=== PATIENT | female | born 1995 | race Caucasian/White ===

== ENCOUNTER 2019-02-04 16:15 | Emergency (ER) | payer MEDICAID ==
[2019-02-04 18:23] LABS: Absolute Lymphocytes (CBC) 2.3 K/uL (0.7-4.9); Basophils % 0.4 % (0-1.3); Hematocrit 39.3 % (36.0-45.0); Lymphocytes % 21.2 % (15.3-44.8); MPV 8.8 fL (7.6-11.3); RBC Red Blood Cell Count 4.52 M/uL (3.86-4.86)
--- NOTE | 2019-02-04 18:26 | RAD REPORT ---
EXAM DESCRIPTION: US - 1St Trimest Single 1St Fetus - 02/04/2019 6:13 pm CLINICAL HISTORY: with vaginal bleeding COMPARISON: None. FINDINGS: The uterus measures 12 x 8 x 8 centimeters. A normal appearing gestational sac is present within the endometrium. Within this is a pole with a crown-rump length 6 centimeters. Cardiac activity 154 beats per minute. The placenta is anterior Right and left ovary appear normal. . The right and left adnexal unremarkable No significant free fluid is seen. IMPRESSION: Single live intrauterine with an estimated gestational age 12 weeks 4 days da ys DYLAN 08/15/2019 If a survey is desired it should be performed in about 6 weeks
--- NOTE | 2019-02-04 18:41 | EDPHYS ---
Physician Documentation [facility] Name: Natanael Dyson Age: 23 yrs Sex: Female : 1995 Arrival Date: 02/04/2019 Time: 16:21 Bed 26 Private MD: None, None ED Physician Miquel Rios HPI: 02/04 17:29 This 23 yrs old Female presents to ER via Ambulatory with complaints of pm1 Abdominal Pain - 14 Weeks . 17:29 The patient presents with vaginal bleeding that is spotting, with no clots. Onset: The pm1 symptoms/episode began/occurred today. Modifying factors: The symptoms are alleviated by nothing, the symptoms are aggravated by nothing. Associated signs and symptoms: Pertinent positives: cramping, Pertinent negatives: dysuria, fever, nausea, vomiting. Severity of symptoms: in the emergency department the symptoms are actually worse. The patient is sexually active. The patient has experienced similar episodes in the past, a few times. The patient has not recently seen a physician. 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 - Social history:: Smoking status: . - Ebola Screening: : Patient negative for fever greater than or equal to 101.5 degrees Fahrenheit, and additional compatible Ebola Virus Disease symptoms. ROS: 17:29 Positive for vaginal bleeding, Negative for urinary symptoms. pm1 17:29 Constitutional: Negative for fever, chills, and weight loss, Eyes: Negative for injury, pain, redness, and discharge, ENT: Negative for injury, pain, and discharge, Neck: Negative for injury, pain, and swelling, Cardiovascular: Negative for chest pain, palpitations, and edema, Respiratory: Negative for shortness of breath, cough, wheezing, and pleuritic chest pain. 17:29 Back: Negative for injury and pain, MS/Extremity: Negative for injury and deformity, Skin: Negative for injury, rash, and discoloration, Neuro: Negative for headache, weakness, numbness, tingling, and seizure. 17:29 Abdomen/GI: Positive for abdominal cramps, of the suprapubic area. Exam: 17:29 Constitutional: This is a well developed, well nourished patient who is awake, alert, pm1 and in no acute distress. Head/Face: Normocephalic, atraumatic. Chest/axilla: Normal chest wall appearance and motion. Nontender with no deformity. No lesions are appreciated. Cardiovascular: Regular rate and rhythm with a normal S1 and S2. No gallops, murmurs, or rubs. Normal PMI, no JVD. No pulse deficits. Respiratory: Lungs have equal breath sounds bilaterally, clear to auscultation and percussion. No rales, rhonchi or wheezes noted. No increased work of breathing, no retractions or nasal flaring. 17:29 Back: No spinal tenderness. No costovertebral tenderness. Full range of motion. Skin: Warm, dry with normal turgor. Normal color with no rashes, no lesions, and no evidence of cellulitis. MS/ Extremity: Pulses equal, no cyanosis. Neurovascular intact. Full, normal range of motion. 17:29 Abdomen/GI: Inspection: gravid appearance, is noted, Bowel sounds: normal, Palpation: abdomen is soft and non-tender, in all quadrants, mass, is not appreciated, rebound tenderness, is not appreciated. 17:29 Neuro: Orientation: is normal, Motor: is normal, moves all fours. Vital Signs: 16:47 BP 108 / 94; Pulse 101; Resp 17; Temp 98.(TE); Pulse Ox 99% on R/A; Weight 49.9 kg (R); tw2 Pain 10/10; 18:00 BP 100 / 81; Pulse 81; Resp 18 S; Pulse Ox 99% on R/A; ca1 19:00 BP 109 / 73; Pulse 78; Resp 19 S; Pulse Ox 100% on R/A; ca1 MDM: 17:11 Patient medically screened. pm1 18:36 Data reviewed: vital signs. Data interpreted: Pulse oximetry: on room air is 99 %. pm1 Interpretation: normal. Counseling: I had a detailed discussion with the patient and/or guardian regarding: the historical points, exam findings, and any diagnostic results supporting the discharge/admit diagnosis, lab results, radiology results, the need for outpatient follow up, for definitive care, an OB/Gyne specialist, to return to the emergency department if symptoms worsen or persist or if there are any questions or concerns that arise at home. 02/04 17:22 Order name: Quantitative Hcg; Complete Time: 19:34 pm1 02/04 17:22 Order name: Abo/rh Typing; Complete Time: 18:07 pm1 02/04 17:22 Order name: Basic Metabolic Panel; Complete Time: 19:34 pm1 02/04 17:22 Order name: CBC with Diff; Complete Time: 18:32 pm1 02/04 19:17 Order name: Urine Dipstick--Ancillary (enter results) sp 02/04 19:17 Order name: Urine --Ancillary (enter results) sp 02/04 17:22 Order name: Urine Test (obtain specimen); Complete Time: 19:14 pm1 02/04 17:22 Order name: IV Saline Lock; Complete Time: 17:28 pm1 02/04 17:22 Order name: Labs collected and sent; Complete Time: 17:28 pm1 02/04 17:22 Order name: NPO; Complete Time: 17:28 pm1 02/04 17:22 Order name: Urine Dipstick-Ancillary (obtain specimen); Complete Time: 19:15 pm1 02/04 18:05 Order name: 1St Trimest Single 1St Fetus; Complete Time: 18:36 EDMS Administered Medications: 18:46 Drug: Phenergan 12.5 mg Route: IVP; Site: right antecubital; rv 19:51 Follow up: Response: No adverse reaction; Nausea is decreased ca1 Disposition: 02/05 08:58 Co-signature as Attending Physician, Miquel Rios MD I agree with the assessment and kdr plan of care. Disposition: 02/04/19 18:39 Discharged to Home. Impression: Threatened , Urinary tract infection, site not specified. - Condition is Stable. - Discharge Instructions: Threatened Miscarriage, and Urinary Tract Infection, Pelvic Rest. - Prescriptions for Macrobid 100 mg Oral Capsule - take 1 capsule by ORAL route every 12 hours for 10 days; 20 capsule. - Medication Reconciliation Form, Thank You Letter, Antibiotic Education, Prescription Opioid Use form. - Follow up: Emergency Department; When: As needed; Reason: Worsening of condition. Follow up: Private Physician; When: 2 - 3 days; Reason: Recheck today's complaints, Continuance of care, Re-evaluation by your physician. - Problem is new. - Symptoms have improved. Signatures: Dispatcher [employer] [facility] Miquel Rios MD MD kdr Destin Davis, LEGAL SPECIALIST LEGAL SPECIALIST pm1 Amber Mitchell, RN RN tw2 Andreas Hazel RN RN rv AcHenna rodriguez RN RN ca1 Corrections: (The following items were deleted from the chart) 02/04 18:05 17:25 Transvaginal Ob+US.RAD.BRZ ordered. [facility] EDVT 19:35 18:39 02/04/2019 18:39 Discharged to Home. Impression: Threatened . Condition pm1 is Stable. Forms are Medication Reconciliation Form, Thank You Letter, Antibiotic Education, Prescription Opioid Use. Follow up: Emergency Department; When: As needed; Reason: Worsening of condition. Follow up: Private Physician; When: 2 - 3 days; Reason: Recheck today's complaints, Continuance of care, Re-evaluation by your physician. Problem is new. Symptoms have improved. pm1 19:52 19:35 02/04/2019 18:39 Discharged to Home. Impression: Threatened ; Urinary ca1 tract infection, site not specified. Condition is Stable. Discharge Instructions: Threatened Miscarriage, Pelvic Rest, and Urinary Tract Infection. Prescriptions for Macrobid 100 mg Oral Capsule - take 1 capsule by ORAL route every 12 hours for 10 days; 20 capsule. and Forms are Medication Reconciliation Form, Thank You Letter, Antibiotic Education, Prescription Opioid Use. Follow up: Emergency Department; When: As needed; Reason: Worsening of condition. Follow up: Private Physician; When: 2 - 3 days; Reason: Recheck today's complaints, Continuance of care, Re-evaluation by your physician. Problem is new. Symptoms have improved. pm1
--- NOTE | 2019-02-04 18:41 | ER ---
Nurse's Notes [facility] Name: Natanael Dyson Age: 23 yrs Sex: Female : 1995 Arrival Date: 02/04/2019 Time: 16:21 Bed 26 Private MD: None, None Diagnosis: Threatened ;Urinary tract infection, site not specified Presentation: 02/04 16:45 Presenting complaint: Patient states: i have been jackie all day and it just wont tw2 stop, i have nausea, i was supposed to take something to stop the contractions, this is my 4th and i have had two babies at 30 weeks, i feel a lot of pressure down there and i have some mucous discharge with tinge of blood on the discharge. Transition of care: patient was not received from another setting of care. Onset of symptoms was February 04, 2019. Risk Assessment: Do you want to hurt yourself or someone else? Patient reports no desire to harm self or others. Initial Sepsis Screen: Does the patient meet any 2 criteria? No. Patient's initial sepsis screen is negative. Does the patient have a suspected source of infection? No. Patient's initial sepsis screen is negative. Care prior to arrival: None. 16:45 Method Of Arrival: Ambulatory tw2 16:45 Acuity: THIERNO 2 tw2 16:47 Presenting complaint: Patient states: no movements since this morning. tw2 Triage Assessment: 16:47 General: Appears uncomfortable, slender, Behavior is cooperative, appropriate for age. tw2 Pain: Complains of pain in pelvis. GI: Reports cramping, nausea. 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 - Social history:: Smoking status: . - Ebola Screening: : Patient negative for fever greater than or equal to 101.5 degrees Fahrenheit, and additional compatible Ebola Virus Disease symptoms. Screenin:06 Abuse screen: Denies threats or abuse. Denies injuries from another. Nutritional ca1 screening: No deficits noted. Tuberculosis screening: No symptoms or risk factors identified. Fall Risk IV access (20 points). Assessment: 17:06 General: Appears in no apparent distress. comfortable, Behavior is calm, cooperative, ca1 appropriate for age. Pain: Complains of pain in abdomen and pelvis Pain radiates to back Pain currently is 4 out of 10 on a pain scale. at worst was 8 out of 10 on a pain scale. Quality of pain is described as crampy, Pain began 2-3 days ago. Is intermittent. Neuro: Level of Consciousness is awake, alert, obeys commands, Oriented to person, place, time, situation. Cardiovascular: Heart tones S1 S2 present Capillary refill < 3 seconds Patient's skin is warm and dry. Pulses are all present. Respiratory: Airway is patent Respiratory effort is even, unlabored, Respiratory pattern is regular, symmetrical, Breath sounds are clear bilaterally. GI: Abdomen is round non-distended, Bowel sounds present X 4 quads. Abd is soft X 4 quads Abdomen is tender to palpation in suprapubic area Reports nausea, vomiting. : Reports vaginal bleeding that is spotty, since today. EENT: No deficits noted. No signs and/or symptoms were reported regarding the EENT system. Derm: Skin is intact, is healthy with good turgor, Skin is pink, warm \T\ dry. Musculoskeletal: Circulation, motion, and sensation intact. Capillary refill < 3 seconds, Range of motion: intact in all extremities. 18:00 Reassessment: Patient appears in no apparent distress at this time. Patient and/or ca1 family updated on plan of care and expected duration. Pain level reassessed. Patient is alert, oriented x 3, equal unlabored respirations, skin warm/dry/pink. 19:00 Reassessment: Patient appears in no apparent distress at this time. Patient is alert, ca1 oriented x 3, equal unlabored respirations, skin warm/dry/pink. Vital Signs: 16:47 BP 108 / 94; Pulse 101; Resp 17; Temp 98.(TE); Pulse Ox 99% on R/A; Weight 49.9 kg (R); tw2 Pain 10/10; 18:00 BP 100 / 81; Pulse 81; Resp 18 S; Pulse Ox 99% on R/A; ca1 19:00 BP 109 / 73; Pulse 78; Resp 19 S; Pulse Ox 100% on R/A; ca1 ED Course: 16:21 Patient arrived in ED. dl4 16:22 None, None is Private Physician. dl4 16:46 Triage completed. tw2 16:46 Arm band placed on. tw2 16:51 Andreas Hazel, RN is Primary Nurse. rv 17:00 Destin Davis NP is PHCP. pm1 17:00 Miquel Rios MD is Attending Physician. pm1 17:06 Patient has correct armband on for positive identification. Placed in gown. Bed in low ca1 position. Call light in reach. Side rails up X 1. Pulse ox on. NIBP on. Warm blanket given. 17:06 No provider procedures requiring assistance completed. Inserted saline lock: 20 gauge ca1 in right antecubital area, using aseptic technique. Blood collected. 18:13 1St Trimest Single 1St Fetus In Process Unspecified. EDMS 19:51 IV discontinued, intact, bleeding controlled, No redness/swelling at site. Pressure ca1 dressing applied. Administered Medications: 18:46 Drug: Phenergan 12.5 mg Route: IVP; Site: right antecubital; rv 19:51 Follow up: Response: No adverse reaction; Nausea is decreased ca1 Outcome: 18:39 Discharge ordered by MD. pm1 19:51 Discharged to home via wheelchair, with significant other. ca1 19:51 Condition: stable 19:51 Discharge instructions given to patient, significant other, Instructed on discharge instructions, follow up and referral plans. medication usage, Demonstrated understanding of instructions, follow-up care, medications, Prescriptions given X 1. 19:52 Patient left the ED. ca1 Signatures: Dispatcher [employer] EDMS Destin Davis, CUAU[employer] BRAZING MACHINE OPERATOR HELPER pm1 Amber Mitchell RN RN tw2 Andreas Hazel, RN RN Hema Lanza dl4 Henna Mancia RN RN ca1 Corrections: (The following items were deleted from the chart) 19:21 19:20 Reassessment: Patient appears in no apparent distress at this time. Patient ca1 and/or family updated on plan of care and expected duration. Pain level reassessed. Patient is alert, oriented x 3, equal unlabored respirations, skin warm/dry/pink. ca1
[2019-02-04] MEDS ORDERED: PROMETHAZINE 25 MG/ML VIAL ONE (18:46)
[2019-02-04 18:56] LABS: BUN Blood Urea Nitrogen 5 mg/dL (7-18); Bicarbonate 21 mmol/L (21-32); Glucose Level 83 mg/dL (74-106); HCG, Quantitative 131542 mIU/mL (1-3); Potassium 3.4 mmol/L (3.5-5.1); Sodium Level 138 mmol/L (136-145)
[2019-02-04 20:27] LABS: Urine Blood NEGATIVE (NEG); Urine Glucose NEGATIVE (NEG); Urine Protein NEGATIVE (NEG)
[2019-02-04 21:02] VITALS: TEMP 98
[2019-02-04 21:04] VITALS: BP 109/73; O2SAT 100
== END 2019-02-04 19:52 | disposition home or self-care (01) ==
LOC: ER 16:15
DX: O20.0 Threatened abortion (principal); O23.41 Unspecified infection of urinary tract in pregnancy, first trimester; Z3A.14 14 weeks gestation of pregnancy
CPT/HCPCS: 85025; 80048; 36415; 86900; 81025; 86901; 84702; 81003; 76801; 96374; 99284; J2550

== ENCOUNTER 2019-02-19 17:52 | Emergency (ER) | payer MEDICAID, SELFPAY ==
[2019-02-19] MEDS ORDERED: dexAMETHasone 10 MG/ML VIAL ONE (18:53)
[2019-02-19] MEDS ORDERED: FENTANYL CITR 100 MCG/2 ML ONE (18:54)
[2019-02-19] MEDS ORDERED: PROMETHAZINE 25 MG/ML VIAL ONE ×2 (18:54→20:07)
[2019-02-19] MEDS ORDERED: NA CHLORIDE 0.9% 1,000 ML ONE (18:54)
[2019-02-19 19:08] LABS: Absolute Lymphocytes (CBC) 1.7 K/uL (0.7-4.9); Basophils % 0.2 % (0-1.3); Hematocrit 37.9 % (36.0-45.0); Lymphocytes % 12.5 % (15.3-44.8); RBC Red Blood Cell Count 4.43 M/uL (3.86-4.86)
[2019-02-19 19:24] LABS: BUN Blood Urea Nitrogen 7 mg/dL (7-18); Bicarbonate 23 mmol/L (21-32); Glucose Level 86 mg/dL (74-106); Potassium 3.4 mmol/L (3.5-5.1); Sodium Level 139 mmol/L (136-145)
[2019-02-19] MEDS ORDERED: CEFTRIAXONE/SWI 1gm 1 GM/10 ML SYR ONE (19:28)
--- NOTE | 2019-02-19 20:01 | ER ---
Nurse's Notes [facility] Name: Natnaael Dyson Age: 24 yrs Sex: Female : 1995 Arrival Date: 02/19/2019 Time: 17:53 Bed 28 Private MD: Diagnosis: Acute suppurative otitis media;Otalgia, right ear Presentation: 02/19 18:02 Presenting complaint: Patient states: right ear pain after jabbing her ear with a Q-tip sv last night and today started having dizziness and vomiting. Transition of care: patient was not received from another setting of care. Onset of symptoms was February 18, 2019. Risk Assessment: Do you want to hurt yourself or someone else? Patient reports no desire to harm self or others. Initial Sepsis Screen: Does the patient meet any 2 criteria? HR > 90 bpm. No. Patient's initial sepsis screen is negative. Does the patient have a suspected source of infection? No. Patient's initial sepsis screen is negative. Care prior to arrival: None. 18:02 Method Of Arrival: Ambulatory sv 18:02 Acuity: THIERNO 3 sv Historical: - Allergies: 18:03 No Known Allergies; sv - PSHx: 18:03 ; sv - Immunization history:: Adult Immunizations up to date. - Social history:: Smoking status: Patient/guardian denies using tobacco, never smoked. - Ebola Screening: : No symptoms or risks identified at this time. Screenin:05 Abuse screen: Denies threats or abuse. Nutritional screening: No deficits noted. tr5 Tuberculosis screening: No symptoms or risk factors identified. Fall Risk None identified. Assessment: 19:05 General: Appears in no apparent distress. Behavior is calm, cooperative. Pain: tr5 Complains of pain in right ear. Neuro: Level of Consciousness is awake, alert, Oriented to person, place, time, Senior Design Engineering Specialist are equal bilaterally Moves all extremities. Neuro: Reports dizziness. Cardiovascular: Heart tones present Capillary refill < 3 seconds. Respiratory: Airway is patent Respiratory effort is even, unlabored, Respiratory pattern is regular, symmetrical, Breath sounds are clear bilaterally. GI: Reports nausea, vomiting. : No signs and/or symptoms were reported regarding the genitourinary system. EENT: Reports pain in right ear. Derm: No signs and/or symptoms reported regarding the dermatologic system. Musculoskeletal: No signs and/or symptoms reported regarding the musculoskeletal system. 20:00 Reassessment: Patient appears in no apparent distress at this time. Patient and/or tr5 family updated on plan of care and expected duration. Pain level reassessed. Patient is alert, oriented x 3, equal unlabored respirations, skin warm/dry/pink. Vital Signs: 18:03 BP 126 / 74; Pulse 115; Resp 20; Temp 98.3; Pulse Ox 97% ; Weight 49.9 kg; Height 5 ft. sv 1 in. (154.94 cm); 19:00 BP 104 / 70; Pulse 96; Resp 15; Pulse Ox 100% ; tr5 20:00 BP 111 / 69; Pulse 90; Resp 14; Pulse Ox 99% on R/A; tr5 18:03 Body Mass Index 20.78 (49.90 kg, 154.94 cm) sv ED Course: 17:53 Patient arrived in ED. as 17:59 [facility]C [facility] snw 17:59 Nael Latham MD is Attending Physician. snw 18:03 Triage completed. sv 18:03 Arm band placed on. sv 18:35 Duke Adkins, ROSEY is Primary Nurse. tr5 18:54 Initial lab(s) drawn, by me, sent to lab. jp3 19:01 Bed in low position. Call light in reach. Side rails up X 1. Warm blanket given. Verbal jp3 reassurance given. Pulse ox on. NIBP on. 19:01 Inserted saline lock: 22 gauge in right antecubital area, using aseptic technique. jp3 Blood collected. Patient maintains SpO2 saturation greater than 95% on room air. 19:02 Chem 7 Sent. jp3 19:02 CBC with Diff Sent. jp3 20:00 Anusha García MD is Referral Physician. snw 21:11 No provider procedures requiring assistance completed. IV discontinued. tr5 Administered Medications: 19:01 Drug: fentaNYL (PF) 25 mcg {Note: RASS:0.} Route: IVP; Site: right antecubital; tr5 19:30 Follow up: Response: Anxiety decreased; RASS: Alert and Calm (0) tr5 19:01 Drug: Phenergan 6.25 mg Route: IVP; Site: right antecubital; tr5 19:30 Follow up: Response: Nausea is decreased tr5 19:02 Drug: NS 0.9% 1000 ml Route: IV; Rate: 1 bolus; Site: right antecubital; tr5 20:47 Follow up: IV Status: Completed infusion; IV Intake: 1000ml tr5 19:03 Drug: Decadron - Dexamethasone 10 mg Route: IVP; Site: right antecubital; tr5 19:30 Follow up: Response: No adverse reaction tr5 19:33 Drug: Rocephin 1 grams Route: IV; Rate: calculated rate; Site: right antecubital; tr5 20:00 Follow up: Response: No adverse reaction tr5 20:15 Drug: Phenergan 6.25 mg Route: IVP; Site: right antecubital; tr5 20:45 Follow up: Response: Nausea is decreased tr5 Intake: 20:47 IV: 1000ml; Total: 1000ml. tr5 Outcome: 20:01 Discharge ordered by . snw 21:11 Discharged to home ambulatory. tr5 21:11 Condition: stable 21:11 Discharge instructions given to patient, Instructed on discharge instructions, follow up and referral plans. medication usage, Demonstrated understanding of instructions, follow-up care, medications, Prescriptions given X 4. 21:12 Patient left the ED. tr5 Signatures: Anusha Tobin, RN RN Christy Roque, SUPERVISOR LAST MODEL DEPARTMENT-C SUPERVISOR LAST MODEL DEPARTMENT-Anum Patel Jacob jp3 Duke Adkins RN RN tr5 Corrections: (The following items were deleted from the chart) 20:46 19:30 Phenergan 6.25 mg IVP in right antecubital tr5 tr5
--- NOTE | 2019-02-19 20:01 | EDPHYS ---
Physician Documentation [facility] – [place], [place] Name: Natanael Dyson Age: 24 yrs Sex: Female : 1995 Arrival Date: 02/19/2019 Time: 17:53 Bed 28 Private MD: ED Physician Nael Latham HPI: 02/19 19:29 This 24 yrs old Female presents to ER via Ambulatory with complaints of Ear snw Pain, Dizziness. 19:29 The patient presents with a fullness, hearing loss, pain, incapacitating. The snw complaints affect the right ear. Onset: The symptoms/episode began/occurred suddenly, 2 day(s) ago, and became worse and became persistent. Modifying factors: the symptoms are aggravated by Son pushed q-tip when pt had it in her ear. Severity of symptoms: At their worst the symptoms were incapacitating in the emergency department the symptoms are unchanged. The patient has not experienced similar symptoms in the past. The patient has not recently seen a physician. dizziness, nausea, vomiting. Historical: - Allergies: 18:03 No Known Allergies; sv - PSHx: 18:03 ; sv - Immunization history:: Adult Immunizations up to date. - Social history:: Smoking status: Patient/guardian denies using tobacco, never smoked. - Ebola Screening: : No symptoms or risks identified at this time. ROS: 19:28 Constitutional: Negative for fever, chills, and weight loss, Eyes: Negative for injury, snw pain, redness, and discharge, Neck: Negative for injury, pain, and swelling, Cardiovascular: Negative for chest pain, palpitations, and edema, Respiratory: Negative for shortness of breath, cough, wheezing, and pleuritic chest pain, Back: Negative for injury and pain, : Negative for injury, bleeding, discharge, and swelling, MS/Extremity: Negative for injury and deformity, Skin: Negative for injury, rash, and discoloration. 19:28 ENT: Positive for ear pain. 19:28 Abdomen/GI: Positive for nausea and vomiting. 19:28 Neuro: Positive for dizziness. Exam: 19:28 Constitutional: This is a well developed, well nourished patient who is awake, alert, snw and in no acute distress. Head/Face: Normocephalic, atraumatic. Eyes: Pupils equal round and reactive to light, extra-ocular motions intact. Lids and lashes normal. Conjunctiva and sclera are non-icteric and not injected. Cornea within normal limits. Periorbital areas with no swelling, redness, or edema. Neck: Trachea midline, no thyromegaly or masses palpated, and no cervical lymphadenopathy. Supple, full range of motion without nuchal rigidity, or vertebral point tenderness. No Meningismus. Chest/axilla: Normal chest wall appearance and motion. Nontender with no deformity. No lesions are appreciated. Respiratory: Lungs have equal breath sounds bilaterally, clear to auscultation and percussion. No rales, rhonchi or wheezes noted. No increased work of breathing, no retractions or nasal flaring. Abdomen/GI: Soft, non-tender, with normal bowel sounds. No distension or tympany. No guarding or rebound. No evidence of tenderness throughout. Back: No spinal tenderness. No costovertebral tenderness. Full range of motion. Skin: Warm, dry with normal turgor. Normal color with no rashes, no lesions, and no evidence of cellulitis. MS/ Extremity: Pulses equal, no cyanosis. Neurovascular intact. Full, normal range of motion. Neuro: Awake and alert, GCS 15, oriented to person, place, time, and situation. Cranial nerves II-XII grossly intact. Motor strength 5/5 in all extremities. Sensory grossly intact. Cerebellar exam normal. Normal gait. Psych: Awake, alert, with orientation to person, place and time. Behavior, mood, and affect are within normal limits. 19:28 ENT: External ear(s): are unremarkable, TM's: bulging, on the right, decreased mobility, Examination of the other ear shows no obvious abnormality, Nose: is normal, Mouth: is normal, Posterior pharynx: is normal, Voice: is normal. 19:28 Cardiovascular: Rate: tachycardic, Rhythm: regular. Vital Signs: 18:03 BP 126 / 74; Pulse 115; Resp 20; Temp 98.3; Pulse Ox 97% ; Weight 49.9 kg; Height 5 ft. sv 1 in. (154.94 cm); 19:00 BP 104 / 70; Pulse 96; Resp 15; Pulse Ox 100% ; tr5 20:00 BP 111 / 69; Pulse 90; Resp 14; Pulse Ox 99% on R/A; tr5 18:03 Body Mass Index 20.78 (49.90 kg, 154.94 cm) sv MDM: 18:40 Patient medically screened. snw 20:05 Data reviewed: vital signs, nurses notes. Data interpreted: Pulse oximetry: on room air snw is 97 %. Interpretation: normal. Counseling: I had a detailed discussion with the patient and/or guardian regarding: the historical points, exam findings, and any diagnostic results supporting the discharge/admit diagnosis, the need for outpatient follow up, to return to the emergency department if symptoms worsen or persist or if there are any questions or concerns that arise at home. 02/19 18:39 Order name: CBC with Diff; Complete Time: 19:17 snw 02/19 18:39 Order name: Chem 7; Complete Time: 19:27 snw Administered Medications: 19:01 Drug: fentaNYL (PF) 25 mcg {Note: RASS:0.} Route: IVP; Site: right antecubital; tr5 19:30 Follow up: Response: Anxiety decreased; RASS: Alert and Calm (0) tr5 19:01 Drug: Phenergan 6.25 mg Route: IVP; Site: right antecubital; tr5 19:30 Follow up: Response: Nausea is decreased tr5 19:02 Drug: NS 0.9% 1000 ml Route: IV; Rate: 1 bolus; Site: right antecubital; tr5 20:47 Follow up: IV Status: Completed infusion; IV Intake: 1000ml tr5 19:03 Drug: Decadron - Dexamethasone 10 mg Route: IVP; Site: right antecubital; tr5 19:30 Follow up: Response: No adverse reaction tr5 19:33 Drug: Rocephin 1 grams Route: IV; Rate: calculated rate; Site: right antecubital; tr5 20:00 Follow up: Response: No adverse reaction tr5 20:15 Drug: Phenergan 6.25 mg Route: IVP; Site: right antecubital; tr5 20:45 Follow up: Response: Nausea is decreased tr5 Disposition: 02/20 07:47 Co-signature as Attending Physician, Nael Latham MD. Disposition: 02/19/19 20:01 Discharged to Home. Impression: Acute suppurative otitis media, Otalgia, right ear. - Condition is Stable. - Discharge Instructions: Earache, Adult, Heat Therapy. - Prescriptions for Augmentin 875- 125 mg Oral Tablet - take 1 tablet by ORAL route every 12 hours for 10 days; 20 tablet. Tylenol- Codeine #3 300-30 mg Oral Tablet - take 2 tablet by ORAL route every 6 hours As needed; 6 tablet. Prednisone 20 mg Oral Tablet - take 2 tablet by ORAL route once daily for 5 days; 10 tablet. promethazine 25 mg Oral Tablet - take 1 tablet by ORAL route every 6 hours As needed; 20 tablet. - Work release form, Medication Reconciliation Form, Thank You Letter, Antibiotic Education, Prescription Opioid Use form. - Follow up: Private Physician; When: 2 - 3 days; Reason: Recheck today's complaints, Continuance of care, Re-evaluation by your physician. Follow up: Anusha García MD; When: 1 week; Reason: Recheck today's complaints, Continuance of care. Signatures: Dispatcher [employer] EDAnusha Polanco, RN RN Christy Roque, CASSANDRA ARCHITECT-C CASSANDRA ARCHITECT-Csnw Nael Latham MD MD gs Rodriguez, Tommie, RN RN tr5 Corrections: (The following items were deleted from the chart) 02/19 21:12 20:01 02/19/2019 20:01 Discharged to Home. Impression: Acute suppurative otitis media; tr5 Otalgia, right ear. Condition is Stable. Forms are Medication Reconciliation Form, Thank You Letter, Antibiotic Education, Prescription Opioid Use. Follow up: Private Physician; When: 2 - 3 days; Reason: Recheck today's complaints, Continuance of care, Re-evaluation by your physician. Follow up: Anusha García; When: 1 week; Reason: Recheck today's complaints, Continuance of care. snw
[2019-02-19 21:25] VITALS: TEMP 98.3
[2019-02-19 21:27] VITALS: BP 111/69; O2SAT 99
== END 2019-02-19 21:12 | disposition home or self-care (01) ==
LOC: ER 17:52
DX: H66.001 Acute suppurative otitis media without spontaneous rupture of ear drum, right ear (principal)
CPT/HCPCS: 36415; 80048; 85025; 96361; 96374; 96375; 99284; J0696; J1100; J2550; J3010; J7030

== ENCOUNTER 2019-03-12 18:52 | Emergency (ER) | payer OTHER, SELFPAY ==
[2019-03-12] MEDS ORDERED: PROMETHAZINE 25 MG/ML VIAL ONE (19:23)
[2019-03-12] MEDS ORDERED: NA CHLORIDE 0.9% 1,000 ML ONE (19:24)
[2019-03-12 19:55] LABS: Absolute Lymphocytes (CBC) 2.7 K/uL (0.7-4.9); Basophils % 0.4 % (0-1.3); Hematocrit 33.2 % (36.0-45.0); Lymphocytes % 25.2 % (15.3-44.8); MPV 8.4 fL (7.6-11.3); RBC Red Blood Cell Count 3.85 M/uL (3.86-4.86)
[2019-03-12 20:06] LABS: BUN Blood Urea Nitrogen 9 mg/dL (7-18); Bicarbonate 25 mmol/L (21-32); Glucose Level 90 mg/dL (74-106); Potassium 3.5 mmol/L (3.5-5.1); Sodium Level 139 mmol/L (136-145)
--- NOTE | 2019-03-12 21:08 | EDPHYS ---
Physician Documentation [facility] Name: Natanael Dyson Age: 24 yrs Sex: Female : 1995 Arrival Date: 03/12/2019 Time: 18:54 Bed 30 Private MD: ED Physician Miquel Rios HPI: 03/12 19:07 This 24 yrs old Female presents to ER via Ambulatory with complaints of kb Abdominal Pain - 18 WKS PREG, Abdominal Cramping. 19:07 The patient presents to the emergency department with abdominal pain. The patient kb presents to the emergency department with nausea and vomiting. The estimated gestational age is 18 weeks. course: care: at a clinic, Leakage of Fluid: none appreciated, Ultrasound: the patient had an ultrasound, Risk/complications: premature labor. Previous pregnancies: in previous pregnancies patient has had. Associated signs and symptoms: Pertinent positives: nausea, vomiting, abd cramps. The patient has experienced similar episodes in the past, a few times. The patient has been recently seen by a physician: seen by OB today and had cervix checked, has been cramping since then. 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 - Social history:: Smoking status: Patient/guardian denies using tobacco. - Ebola Screening: : No symptoms or risks identified at this time. ROS: 19:09 Constitutional: Negative for fever, chills, and weight loss, ENT: Negative for injury, kb pain, and discharge, Neck: Negative for injury, pain, and swelling, Cardiovascular: Negative for chest pain, palpitations, and edema, Respiratory: Negative for shortness of breath, cough, wheezing, and pleuritic chest pain, Back: Negative for injury and pain, MS/Extremity: Negative for injury and deformity, Skin: Negative for injury, rash, and discoloration, Neuro: Negative for headache, weakness, numbness, tingling, and seizure. 19:09 Abdomen/GI: Positive for nausea and vomiting, abdominal cramps. Exam: 19:09 Constitutional: This is a well developed, well nourished patient who is awake, alert, kb and in no acute distress. Head/Face: Normocephalic, atraumatic. ENT: Nares patent. No nasal discharge, no septal abnormalities noted. Tympanic membranes are normal and external auditory canals are clear. Oropharynx with no redness, swelling, or masses, exudates, or evidence of obstruction, uvula midline. Mucous membranes moist. Neck: Trachea midline, no thyromegaly or masses palpated, and no cervical lymphadenopathy. Supple, full range of motion without nuchal rigidity, or vertebral point tenderness. No Meningismus. Chest/axilla: Normal chest wall appearance and motion. Nontender with no deformity. No lesions are appreciated. Cardiovascular: Regular rate and rhythm with a normal S1 and S2. No gallops, murmurs, or rubs. Normal PMI, no JVD. No pulse deficits. Respiratory: Lungs have equal breath sounds bilaterally, clear to auscultation and percussion. No rales, rhonchi or wheezes noted. No increased work of breathing, no retractions or nasal flaring. Back: No spinal tenderness. No costovertebral tenderness. Full range of motion. Skin: Warm, dry with normal turgor. Normal color with no rashes, no lesions, and no evidence of cellulitis. MS/ Extremity: Pulses equal, no cyanosis. Neurovascular intact. Full, normal range of motion. Neuro: Awake and alert, GCS 15, oriented to person, place, time, and situation. Cranial nerves II-XII grossly intact. Motor strength 5/5 in all extremities. Sensory grossly intact. Cerebellar exam normal. Normal gait. 19:09 Abdomen/GI: Inspection: gravid appearance, Bowel sounds: normal, Palpation: abdomen is soft and non-tender. Vital Signs: 18:59 BP 117 / 91; Pulse 84; Resp 16; Temp 97.8; Pulse Ox 100% on R/A; Weight 51.71 kg; hb Height 5 ft. 1 in. (154.94 cm); Pain 10/10; 19:45 BP 106 / 67; Pulse 85; Resp 18; Pulse Ox 100% on R/A; Pain 4/10; fu 20:30 BP 103 / 72; Pulse 76; Resp 18; Pulse Ox 100% ; Pain 5/10; fu 21:30 BP 111 / 75; Pulse 85; Resp 18; Pulse Ox 100% on R/A; fu 18:59 Body Mass Index 21.54 (51.71 kg, 154.94 cm) hb MDM: 19:04 Patient medically screened. kb 19:10 Data reviewed: vital signs, nurses notes. Data interpreted: Pulse oximetry: on room air kb is 100 %. Interpretation: normal. 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 21:08 ED course: Pt tolerating PO. kb 03/12 19:04 Order name: CBC with Diff; Complete Time: 19:56 kb 03/12 19:04 Order name: Basic Metabolic Panel; Complete Time: 20:15 kb 03/12 19:04 Order name: IV Start; Complete Time: 19:55 kb 03/12 19:13 Order name: FHT's; Complete Time: 19:20 kb 03/12 20:15 Order name: PO challenge; Complete Time: 20:25 kb Administered Medications: 19:40 Drug: NS 0.9% 1000 ml Route: IV; Rate: 1000 ml; Site: right forearm; fu 20:46 Follow up: Response: No adverse reaction fu 19:40 Drug: Phenergan 12.5 mg Route: IVP; Site: right forearm; fu 20:46 Follow up: Response: Nausea is decreased fu Disposition: 03/13 09:13 Co-signature as Attending Physician, Miquel Rios MD I agree with the assessment and kdr plan of care. Disposition: 03/12/19 21:07 Discharged to Home. Impression: 18 weeks gestation of , Nausea and vomiting. - Condition is Stable. - Discharge Instructions: Morning Sickness, [id number], Second Trimester of , [id number]. - Medication Reconciliation Form, Thank You Letter, Antibiotic Education, Prescription Opioid Use form. - Follow up: Emergency Department; When: As needed; Reason: Worsening of condition. Follow up: Private Physician; When: 2 - 3 days; Reason: Recheck today's complaints, Continuance of care, Re-evaluation by your physician. - Notes: Follow up with OB tomorrow Signatures: Dispatcher [employer] EDBobbi Ramachandran, ABBI HENDRICKS-Miquel Mustafa MD MD [facility] Judi Rich RN RN Ludwig Ramirez RN RN fu Corrections: (The following items were deleted from the chart) 03/12 21:57 21:07 03/12/2019 21:07 Discharged to Home. Impression: 18 weeks gestation of ; fu Nausea and vomiting. Condition is Stable. Forms are Medication Reconciliation Form, Thank You Letter, Antibiotic Education, Prescription Opioid Use. Follow up: Emergency Department; When: As needed; Reason: Worsening of condition. Follow up: Private Physician; When: 2 - 3 days; Reason: Recheck today's complaints, Continuance of care, Re-evaluation by your physician. kb
--- NOTE | 2019-03-12 21:08 | ER ---
Nurse's Notes [facility] Name: Natanael Dyson Age: 24 yrs Sex: Female : 1995 Arrival Date: 03/12/2019 Time: 18:54 Bed 30 Private MD: Diagnosis: 18 weeks gestation of ;Nausea and vomiting Presentation: 03/12 18:57 Presenting complaint: Right sided abdominal cramping and N/V/D today, denies vaginal hb bleeding or discharge. Not tolerating fluids. DYLAN is 07/02. Transition of care: patient was not received from another setting of care. Onset of symptoms was March 12, 2019. Risk Assessment: Do you want to hurt yourself or someone else? Patient reports no desire to harm self or others. Care prior to arrival: None. 18:57 Method Of Arrival: Ambulatory hb 18:57 Acuity: THIERNO 3 hb 19:00 Initial Sepsis Screen: Does the patient meet any 2 criteria? No. Patient's initial fu sepsis screen is negative. Does the patient have a suspected source of infection? No. Patient's initial sepsis screen is negative. 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 - Social history:: Smoking status: Patient/guardian denies using tobacco. - Ebola Screening: : No symptoms or risks identified at this time. Screenin:19 Abuse screen: Denies threats or abuse. Nutritional screening: No deficits noted. fu Tuberculosis screening: No symptoms or risk factors identified. Fall Risk None identified. Assessment: 19:10 General: Appears uncomfortable, Behavior is calm, cooperative, appropriate for age, fu Denies fever, feeling ill, chills. Pain: Complains of pain in abdomen Pain does not radiate. Pain currently is 10 out of 10 on a pain scale. Quality of pain is described as crampy, Pain began today Noted to be grimacing, Also complains of nausea. Neuro: Level of Consciousness is awake, alert, obeys commands, Oriented to person, place, time. Respiratory: Reports cough that is productive, Breath sounds are clear bilaterally. GI: Bowel sounds present X 4 quads. Abd is soft. : Denies burning with urination. EENT: No signs and/or symptoms were reported regarding the EENT system. Derm: No signs and/or symptoms reported regarding the dermatologic system. 20:03 Reassessment: Patient appears in no apparent distress at this time. Patient and/or fu family updated on plan of care and expected duration. Pain level reassessed. Patient is alert, oriented x 3, equal unlabored respirations, skin warm/dry/pink. feeling of nausea improved as per patient. family at bedside.. 20:37 Reassessment: given with 1 cup of cold water, tolerated well by patient, denies nausea fu and vomiting.. Vital Signs: 18:59 BP 117 / 91; Pulse 84; Resp 16; Temp 97.8; Pulse Ox 100% on R/A; Weight 51.71 kg; hb Height 5 ft. 1 in. (154.94 cm); Pain 10/10; 19:45 BP 106 / 67; Pulse 85; Resp 18; Pulse Ox 100% on R/A; Pain 4/10; fu 20:30 BP 103 / 72; Pulse 76; Resp 18; Pulse Ox 100% ; Pain 5/10; fu 21:30 BP 111 / 75; Pulse 85; Resp 18; Pulse Ox 100% on R/A; fu 18:59 Body Mass Index 21.54 (51.71 kg, 154.94 cm) hb Vitals: 19:18 Heart Tones 159. fu ED Course: 18:54 Patient arrived in ED. am2 18:58 Triage completed. hb 18:59 Arm band placed on. hb 19:02 Ludwig Ramirez RN is Primary Nurse. fu 19:04 Bobbi Vang FNP-C is PHCP. kb 19:04 Miquel Rios MD is Attending Physician. kb 19:19 Patient has correct armband on for positive identification. Bed in low position. Call light in reach. 19:35 Initial lab(s) drawn, by me, sent to lab. Inserted saline lock: 22 gauge in right fu forearm, using aseptic technique. 21:40 No provider procedures requiring assistance completed. IV discontinued, bleeding fu controlled, Pressure dressing applied. Administered Medications: 19:40 Drug: NS 0.9% 1000 ml Route: IV; Rate: 1000 ml; Site: right forearm; fu 20:46 Follow up: Response: No adverse reaction fu 19:40 Drug: Phenergan 12.5 mg Route: IVP; Site: right forearm; fu 20:46 Follow up: Response: Nausea is decreased fu Outcome: 21:07 Discharge ordered by MD. jain 21:45 Discharged to home ambulatory, with family. fu 21:45 Condition: improved 21:45 Discharge instructions given to patient, Instructed on discharge instructions, Demonstrated understanding of instructions. 21:57 Patient left the ED. fu Signatures: Bobbi Vang, ELADIO-C UTILITY TENDER CARDING-Ckb Judi Rich, RN RN Ileana Suarez am2 Ludwig Ramirez RN RN fu Corrections: (The following items were deleted from the chart) 19:00 18:57 Acuity: THIERNO 3 hb hb 19:01 18:57 Acuity: THIERNO 2 hb hb
[2019-03-12 22:15] VITALS: TEMP 97.8; O2SAT 100
[2019-03-12 22:16] VITALS: BP 106/67
== END 2019-03-12 21:57 | disposition home or self-care (01) ==
LOC: ER 18:52
DX: O26.892 Other specified pregnancy related conditions, second trimester (principal); R11.2 Nausea with vomiting, unspecified
CPT/HCPCS: 85025; 80048; 36415; 96374; 99284; J2550; J7030

== ENCOUNTER 2019-07-10 19:12 | Emergency (ER) | payer MEDICAID ==
[2019-07-10] MEDS ORDERED: ACETAMINOPHEN 500 MG TAB ONE (20:08)
--- NOTE | 2019-07-10 21:15 | ER ---
Nurse's Notes [facility] Name: Natanael Dyson Age: 24 yrs Sex: Female : 1995 Arrival Date: 07/10/2019 Time: 19:13 Bed 15 Private MD: Diagnosis: Cough;Epistaxis-resolved;Headache Presentation: 07/10 19:33 Chief complaint: Patient states: "I have had a nose bleed most of the day. that is on jd3 top of a headache and earache and my chest feels super sore. I have had a cough, but blood has come up.". Coronavirus screen: The patient has NOT traveled to [place] in the past 14 days. The patient has NOT had contact with known and/or suspected case of Coronavirus. Proceed with normal triage procedures. Ebola Screen: Patient negative for fever greater than or equal to 101.5 degrees Fahrenheit, and additional compatible Ebola Virus Disease symptoms. Initial Sepsis Screen: Does the patient meet any 2 criteria? No. Patient's initial sepsis screen is negative. Does the patient have a suspected source of infection? No. Patient's initial sepsis screen is negative. Risk Assessment: Do you want to hurt yourself or someone else? Patient reports no desire to harm self or others. 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 - Social history:: Smoking status: Patient denies any tobacco usage or history of. Screenin:00 Abuse screen: Denies threats or abuse. Denies injuries from another. Nutritional rr5 screening: No deficits noted. Tuberculosis screening: No symptoms or risk factors identified. Fall Risk None identified. Assessment: 20:00 Pain: Complains of pain in head Pain does not radiate. Pain currently is 8 out of 10 on rr5 a pain scale. Quality of pain is described as aching, Pain began gradually, Is intermittent. Neuro: Level of Consciousness is awake, alert, obeys commands, Oriented to person, place, time, situation, Reports headache. Cardiovascular: Capillary refill < 3 seconds Patient's skin is warm and dry. Respiratory: Reports cough that is Airway is patent Respiratory effort is even, unlabored, Respiratory pattern is regular, symmetrical. GI: No signs and/or symptoms were reported involving the gastrointestinal system. : Reports 36 weeks . EENT: Reports nose bleed. Derm: Skin is intact, is healthy with good turgor, Skin temperature is warm. Musculoskeletal: Circulation, motion, and sensation intact. Capillary refill < 3 seconds. 20:00 General: Appears in no apparent distress. comfortable, Behavior is calm, cooperative, rr5 appropriate for age. 21:00 Reassessment: Patient appears in no apparent distress at this time. No changes from rr5 previously documented assessment. Patient is alert, oriented x 3, equal unlabored respirations, skin warm/dry/pink. awaiting for results. 21:40 Reassessment: Patient appears in no apparent distress at this time. Patient is alert, rr5 oriented x 3, equal unlabored respirations, skin warm/dry/pink. discharge instruction given and explained without complaints made. Patient states symptoms have improved. Vital Signs: 19:35 BP 124 / 78; Pulse 103; Resp 16 S; Temp 98.6(TE); Pulse Ox 98% on R/A; Weight 63.5 kg jd3 (R); Height 5 ft. 1 in. (154.94 cm) (R); Pain 9/10; 20:24 BP 105 / 75; Pulse 99; Resp 17; Pulse Ox 99% ; Pain 9/10; rr5 21:30 BP 121 / 86; Pulse 95; Resp 19; Temp 97.6; Pulse Ox 99% on R/A; rr5 19:35 Body Mass Index 26.45 (63.50 kg, 154.94 cm) jd3 Vitals: 20:24 Heart Tones 150 bpm. rr5 ED Course: 19:13 Patient arrived in ED. cl3 19:35 Triage completed. jd3 19:36 Arm band placed on. jd3 19:39 Justin Curiel PA is PHCP. cp 19:39 Barrie Ziegler MD is Attending Physician. cp 19:54 Stone Shore RN is Primary Nurse. rr5 20:00 Patient has correct armband on for positive identification. Bed in low position. Call rr5 light in reach. Pulse ox on. NIBP on. 21:40 No provider procedures requiring assistance completed. Patient did not have IV access rr5 during this emergency room visit. Administered Medications: 20:06 Drug: Tylenol 1000 mg Route: PO; rr5 21:00 Follow up: Response: No adverse reaction; Pain is decreased rr5 Outcome: 21:14 Discharge ordered by . cp 21:40 Discharged to home ambulatory. rr5 21:40 Condition: stable 21:40 Discharge instructions given to patient, Instructed on discharge instructions, follow up and referral plans. Demonstrated understanding of instructions, follow-up care. 21:44 Patient left the ED. rr5 Signatures: Justin Curiel PA PA cp Davies, Jonathon, RN RN jd3 Stone Shore RN RN rr5 Angi Cotter cl3 Corrections: (The following items were deleted from the chart) 00:03 07/10 21:40 General: Appears in no apparent distress. comfortable, Behavior is calm, rr5 cooperative, appropriate for age, rr5
--- NOTE | 2019-07-10 21:15 | EDPHYS ---
Physician Documentation [facility] Name: Natanael Dyson Age: 24 yrs Sex: Female : 1995 Arrival Date: 07/10/2019 Time: 19:13 Bed 15 Private MD: ED Physician Barrie Ziegler HPI: 07/10 20:07 This 24 yrs old Female presents to ER via Ambulatory with complaints of cp Cough, Nose Bleed. 20:07 The patient or guardian reports cough, that is intermittent, with productive sputum, cp with blood. Onset: The symptoms/episode began/occurred today. 20:07 Associated signs and symptoms: Pertinent positives: earache, headache, intermittent cp nose bleed, Pertinent negatives: chest pain, diarrhea, fever, vomiting. 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 - Social history:: Smoking status: Patient denies any tobacco usage or history of. ROS: 20:15 Constitutional: Negative for body aches, chills, fever, poor PO intake. cp 20:15 Eyes: Negative for injury, pain, redness, and discharge. cp 20:15 ENT: Positive for ear pain, nose bleed, Negative for drainage from ear(s), difficulty cp swallowing, difficulty handling secretions. 20:15 Respiratory: Positive for cough, Negative for shortness of breath, wheezing. 20:15 Abdomen/GI: Negative for abdominal pain, vomiting, diarrhea, constipation. 20:15 : Negative for urinary symptoms, vaginal bleeding, vaginal discharge. 20:15 Skin: Negative for rash. 20:15 Neuro: Positive for headache, Negative for altered mental status, weakness. 20:15 All other systems are negative. Exam: 20:20 Constitutional: The patient appears in no acute distress, alert, awake, non-toxic, well cp developed, well nourished. 20:20 Head/Face: Normocephalic, atraumatic. cp 20:20 Eyes: Periorbital structures: appear normal, Conjunctiva: normal, no exudate, no cp injection, Lids and lashes: appear normal, bilaterally. 20:20 ENT: External ear(s): are unremarkable, Ear canal(s): are normal, clear, TM's: bulging, cp is not appreciated, bilaterally, dullness, bilaterally, erythema, is not appreciated, bilaterally, Nose: External nose: no obvious acute abnormality, bleeding, is not appreciated, no septal hematoma is appreciated, clotted blood, in both nares, nasal drainage, is not appreciated, Mouth: Lips: moist, Oral mucosa: pink and intact, moist, Posterior pharynx: is normal, airway is patent, no erythema, no exudate. 20:20 Neck: ROM/movement: is normal, is supple, no meningismus, no nuchal rigidity, Lymph nodes: no appreciated lymphadenopathy. 20:20 Chest/axilla: Inspection: normal, Palpation: is normal, no crepitus, no tenderness. 20:20 Cardiovascular: Rate: tachycardic, Rhythm: regular. 20:20 Respiratory: the patient does not display signs of respiratory distress, Respirations: normal, no use of accessory muscles, no tachypnea, labored breathing, is not present, Breath sounds: are clear throughout, no decreased breath sounds, no stridor, no wheezing. 20:20 Abdomen/GI: Inspection: gravid appearance, is noted, Palpation: abdomen is soft and non-tender, in all quadrants. 20:20 Back: pain, is absent, ROM is normal. 20:20 Skin: no rash present. 20:20 Neuro: Orientation: to person, place \T\ time. Mentation: is normal, Motor: moves all fours, strength is normal. Vital Signs: 19:35 BP 124 / 78; Pulse 103; Resp 16 S; Temp 98.6(TE); Pulse Ox 98% on R/A; Weight 63.5 kg jd3 (R); Height 5 ft. 1 in. (154.94 cm) (R); Pain 9/10; 20:24 BP 105 / 75; Pulse 99; Resp 17; Pulse Ox 99% ; Pain 9/10; rr5 21:30 BP 121 / 86; Pulse 95; Resp 19; Temp 97.6; Pulse Ox 99% on R/A; rr5 19:35 Body Mass Index 26.45 (63.50 kg, 154.94 cm) jd3 MDM: 19:46 Patient medically screened. cp 20:00 Differential Diagnosis: Influenza Upper Respiratory Infection Sinusitis Otitis Media cp Viral Syndrome Pneumonia Other nasal trauma. 20:30 Data reviewed: vital signs, nurses notes, lab test result(s). cp 21:13 Counseling: I had a detailed discussion with the patient and/or guardian regarding: the cp historical points, exam findings, and any diagnostic results supporting the discharge/admit diagnosis, lab results, to return to the emergency department if symptoms worsen or persist or if there are any questions or concerns that arise at home. 21:13 Response to treatment: the patient's symptoms have mildly improved after treatment, and cp as a result, I will discharge patient. 07/10 19:47 Order name: Strep; Complete Time: 20:28 cp 07/10 20:28 Interpretation: Reviewed. cp 07/10 19:47 Order name: Influenza Screen (a \T\ B); Complete Time: 20:28 cp 07/10 20:28 Interpretation: Reviewed. 07/10 20:07 Order name: FHT's; Complete Time: 20:22 cp 07/10 20:26 Order name: Throat Culture EDMS Administered Medications: 20:06 Drug: Tylenol 1000 mg Route: PO; rr5 21:00 Follow up: Response: No adverse reaction; Pain is decreased rr5 Disposition: 07/10/19 21:14 Discharged to Home. Impression: Cough, Epistaxis - resolved, Headache. - Condition is Stable. - Discharge Instructions: Nosebleed, Adult, General Headache Without Cause, Cool Mist Vaporizer, Cough, Adult. - Medication Reconciliation Form, Thank You Letter, Antibiotic Education, Prescription Opioid Use form. - Follow up: Private Physician; When: 2 - 3 days; Reason: Worsening of condition. - Problem is new. - Symptoms have improved. Addendum: 07/12/2019 02:16 Co-signature as Attending Physician, Barrie Ziegler MD I agree with the assessment and t w4 plan of care. Signatures: Dispatcher [employer] EDWA Justin Curiel PA PA cp Davies, Jonathon, RN RN jd3 Barrie Ziegler MD MD tw4 [place] RN RN rr5 Corrections: (The following items were deleted from the chart) 07/10 20:11 20:07 Associated signs and symptoms: Pertinent positives: earache, intermittent nose cp bleeds, Pertinent negatives: fever, cp 21:44 21:14 07/10/2019 21:14 Discharged to Home. Impression: Cough; Epistaxis - resolved; rr5 Headache. Condition is Stable. Forms are Medication Reconciliation Form, Thank You Letter, Antibiotic Education, Prescription Opioid Use. Follow up: Private Physician; When: 2 - 3 days; Reason: Worsening of condition. Problem is new. Symptoms have improved. cp
--- OUTSIDE RECORDS SUMMARY | 2019-07-10 22:19 | XMS REPORT | Summary of Care ---
:1995 Author Organization [facility] Address [address] [place] [address] Care Team Providers Name Role Phone Shelby Taylor [facility] Primary [facility] Provider Luke Baker Insurance Hmo Encounter Details Date Type Department Care Team Description 05/20/2019 Patient Secure Msg [facility] Doctor Unassigned, [address] [place] [address] [place] [phone] [place] [address] [place] [address] Allergies No Known Allergiesdocumented as of this encounter (statuses as of 06/20/2019) Medications Medication Sig Dispensed Refills Start Date End Date Status PNV 67-iron ps-folate Take 1 Each by 30 capsule 9 02/06/2019 Active no.1-dha (VITAFOL mouth daily. ULTRA) 29 mg iron- 1 mg-200 mg CapIndications: Supervision of high risk , antepartum HYDROXYprogest,PF,,pre 1 mL by 22 mL 0 02/09/2019 Active g presv, 250 mg/mL (1 Intramuscular 0 mL) route weekly for injectionIndications: 22 doses. History of delivery famotidine 40 mg Take 1 tablet by 30 tablet 3 05/08/2019 Active tabletIndications: mouth daily. Gastroesophageal reflux in ferrous sulfate 325 mg Take 1 tablet by 120 tablet 6 05/11/2019 Active (65 mg iron) mouth 2 (two) tabletIndications: times daily. Anemia of mother in , antepartum ascorbic acid, vitamin Take 1 tablet by 90 tablet 6 05/11/2019 Active C, 500 mg mouth 3 (three) tabletIndications: times daily. Anemia of mother in , antepartum proMETHazine 25 mg Take 1 tablet by 30 tablet 0 05/25/2019 Active tabletIndications: mouth every 6 Nausea and vomiting (six) hours as during needed for Nausea and Vomiting (N/V). calcium carbonate 500 Take 1 tablet by 90 tablet 0 05/25/2019 Active mg calcium (1,250 mg) mouth 3 (three) tabletIndications: Leg times daily with cramps in meals. ALBUTEROL 90 INHALE 2 PUFFS BY 7 Each 3 05/26/2019 Active mcg/actuation MOUTH EVERY 6 inhalerIndications: HOURS NEEDED Asthma affecting FOR WHEEZING FOR in second SHORTNESS OF trimester BREATH documented as of this encounter (statuses as of 06/20/2019) Active Problems Problem Noted Date Cervical Papanicolaou smear negative within last 12 months 06/19/2019 Overview: 12/2018 NIL pap , see scanned records Pain of round ligament during 06/04/2019 Previous delivery affecting , antepartum 05/31/2019 uterine contractions 05/30/2019 Threatened labor, third trimester 05/28/2019 32 weeks gestation of 05/14/2019 BV (bacterial vaginosis) 05/14/2019 Anemia of mother in , antepartum 05/11/2019 Gastroesophageal reflux in 05/08/2019 Tubal ligation status 05/08/2019 Anxiety during in second trimester, antepartum 04/16/2019 Asthma affecting in third trimester 04/16/2019 Supervision of high risk in third trimester 02/06/2019 Multiparity 02/06/2019 History of section 02/06/2019 History of 02/06/2019 Estimated Date of Delivery Comments Yes 08/09/2019 Based on last menstrual period of 11/02/2018 documented as of this encounter (statuses as of 06/20/2019) Resolved Problems Problem Noted Date Resolved Date 39 weeks gestation of 05/29/2019 05/30/2019 uterine contractions in second trimester, antepartum 05/14/201905/28 Candidiasis of vulva and vagina 03/30/2019 05/28/2019 History of delivery 02/06/2019 05/08/2019 Overview: History of frederick inj documented as of this encounter (statuses as of 06/20/2019) Immunizations Name Administration Dates Next Due Influenza Virus Vaccine Quad .5 mL IM 6+ MO 02/06/2019 documented as of this encounter Social History Tobacco Use Types Packs/Day Years Used Date Never Smoker Smokeless Tobacco: Never Used Alcohol Use Drinks/Week oz/Week Comments Not Currently Alcohol Habits Answer Date Recorded How often do you have a drink containing alcohol? Never 02/06/2019 How many drinks containing alcohol do you have on a typical Not asked day when you are drinking? How often do you have six or more drinks on one occasion? Not asked Estimated Date of Delivery Comments Yes 08/09/2019 Based on last menstrual period of 11/02/2018 Sex Assigned at Date Recorded Not on file Job Start Date Occupation Industry Not on file Not on file Not on file Travel History Travel Start Travel End No recent travel history available. documented as of this encounter Last Filed Vital Signs Not on filedocumented in this encounter Plan of Treatment Date Type Specialty Care Team Description 06/22/2019 [facility]2019 Routine OB Satellites Risk, Visit Zwn-Gpkms-Vp/High 08/03/2019 Hospital Encounter Obstetrics Fiorella Ni MD [address] [place] [phone] 08/03/2019 Surgery Surgery Faculty, Ob SECTION [address] [place] [id number] Health Maintenance Due Date Last Done Comments PAP SMEAR 07/16/2019 Postponed from 02/19/2016 ( or ) HPV VACCINES (1 - Female 03/02/2020 Postponed from 2-dose series) 2006 ( or ) CHLAMYDIA SCREENING 05/30/2020 05/30/2019, 05/14/2019, 02/06/2019 DTaP,Tdap,and Td Vaccines (2 05/21/2029 05/21/2019 - Td) INFLUENZA VACCINE Completed 02/06/2019 PNEUMOCOCCAL 0-64 YEARS Discontinued COMBINED SERIES documented as of this encounter Results Not on filedocumented in this encounter Insurance Payer Benefit Plan / Subscriber ID Effective Phone Address Type Group Dates SAMMY CHRISTIANSON xxxxxxxxx 2019-Pres [address] Medicaid HEALTHCARE - [place]CARE [place] [id number] MANAGED MEDICAID [place], [place] documented as of this encounter
--- OUTSIDE RECORDS SUMMARY | 2019-07-10 22:19 | XMS REPORT ---
:1995 [facility] Address [address] [place] [address] Dr. Ferguson [address] [place] [address] Care Team Providers Name Role Phone Unavailable Unavailable Unavailable Problems This patient has no known problems. Allergies, Adverse Reactions, Alerts This patient has no known allergies or adverse reactions. Medications This patient has no known medications.
--- OUTSIDE RECORDS SUMMARY | 2019-07-10 22:20 | XMS REPORT | Summary of Care ---
:1995 Author Organization [facility] Address [address] [place] [address] Care Team Providers Name Role Phone [facility] Luke Baker Insurance Hmo Encounter Details Date Type Department Care Team Description 06/23/2019 [facility] [address] [facility] [address] [place] [phone] [facility] [phone] [place] [address] Allergies No Known Allergiesdocumented as of this encounter (statuses as of 06/23/2019) Medications Medication Sig Dispensed Refills Start Date [...] FOR in second SHORTNESS OF trimester BREATH cyclobenzaprine 10 mg Take 1 tablet by 90 tablet 0 05/21/2019 Active tabletIndications: mouth 3 (three) Back pain affecting times daily as in third needed for Muscle trimester Spasms. buPROPion SR Take 1 tablet by 60 tablet 3 05/21/2019 Active (WELLBUTRIN SR) 150 mg mouth 2 (two) SR tabletIndications: times daily. Depression affecting in third trimester, antepartum busPIRone 10 mg Take 1 tablet by 90 tablet 3 05/21/2019 Active tabletIndications: mouth 3 (three) Anxiety during times daily. in third trimester, antepartum documented as of this encounter (statuses as of 06/23/2019) Active Problems Problem Noted Date IUGR (intrauterine growth restriction) affecting care of mother, third 2019 trimester, fetus 1 Body aches 06/23/2019 Upper respiratory tract infection, unspecified type 06/23/2019 Cervical Papanicolaou smear negative within last 12 [...] third trimester 02/06/2019 Multiparity 02/06/2019 History of delivery 02/06/2019 Overview: History of frederick inj History of section 02/06/2019 History of 02/06/2019 Estimated Date of Delivery Comments Yes 08/09/2019 Based on last menstrual period of 11/02/2018 documented as of this encounter (statuses as of 06/23/2019) Resolved Problems Problem Noted Date Resolved Date 39 weeks gestation of 05/29/2019 05/30/2019 uterine contractions in second trimester, antepartum 05/14/201905/28 Candidiasis of vulva and vagina 03/30/2019 05/28/2019 documented as of this encounter (statuses as of 06/23/2019) Immunizations Name Administration Dates Next Due Influenza Virus Vaccine Quad .5 mL IM 6+ MO 02/06/2019 TDAP (ADACEL) VACCINE 05/21/2019 documented as of this encounter Social History [...] Treatment Date Type Specialty Care Team Description 06/24/2019 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 06/25/2019 Routine OB Satellites Risk, Visit Wmq-Gsmor-Nk/High 08/03/2019 Hospital Encounter Obstetrics Fiorella Ni MD [address] [place] [phone] 08/03/2019 Surgery Surgery Faculty, Ob SECTION [address] [place] [address] Health Maintenance Due Date Last Done Comments PAP SMEAR 07/16/2019 Postponed from 02/19/2016 ( or ) HPV VACCINES (1 - Female 03/02/2020 Postponed from 2-dose series) 2006 ( or ) CHLAMYDIA SCREENING 06/17/2020 06/17/2019, 05/30/2019, 05/14/2019, Additional history exists DTaP,Tdap,and Td Vaccines 05/21/2029 05/21/2019 (2 - Td) INFLUENZA VACCINE Completed 02/06/2019 PNEUMOCOCCAL 0-64 YEARS Discontinued COMBINED SERIES documented as of this encounter Results Not on filedocumented in this encounter Insurance Payer Benefit Plan / Subscriber ID Effective Phone Address Type Group Dates SAMMY CHRISTIANSON xxxxxxxxx 2019-Pres Alisson RYAN Medicaid HEALTHCARE - HEALTHCARE ent [id number] MANAGED MEDICAID [place], [place] documented as of this encounter
--- OUTSIDE RECORDS SUMMARY | 2019-07-10 22:20 | XMS REPORT | Summary of Care ---
:1995 Author Organization [facility] Address [address] [place] [address] Care Team Providers Name Role Phone Shelby Taylor Primary Care Provider Luke Baker Insurance Hmo Reason for Visit Reason Comments Rx Concern/Question Alysa injection in Appointment tomorrow Encounter Details Date Type Department Care Team Description 06/22/2019 Telephone [facility]- Shelby Taylor Rx Concern/ Question EARNEST Aguilar (Alysa injection in [address] [place] [address] ); Appointment [place], [place] MARIA LUISA Kassandra (tomorrow) [phone] [place] [address] Allergies No Known Allergiesdocumented as of this encounter (statuses as of 06/22/2019) Medications Medication Sig Dispensed Refills Start Date [...] as of this encounter (statuses as of 06/22/2019) Active Problems Problem Noted Date Cervical Papanicolaou [...] as of this encounter (statuses as of 06/22/2019) Resolved Problems Problem Noted Date Resolved Date 39 weeks gestation of 05/29/2019 05/30/2019 uterine contractions in second trimester, antepartum 05/14/201905/28 Candidiasis of vulva and vagina 03/30/2019 05/28/2019 History of delivery 02/06/2019 05/08/2019 Overview: History of alysa inj documented as of this encounter (statuses as of 06/22/2019) Immunizations Name Administration Dates Next Due Influenza [...] Treatment Date Type Specialty Care Team Description 06/23/2019 Nurse Visit OB Satellites Visit, Elvin Nurse 06/25/2019 Routine OB Satellites Risk, Visit Lrv-Oxcwb-Es/High 08/03/2019 Hospital Encounter Obstetrics Fiorella Ni MD [address] [place] [phone] 08/03/2019 Surgery Surgery Faculty, Ob SECTION [address] [place] [address] Health Maintenance Due Date Last Done Comments [...] Alisson RYAN Medicaid HEALTHCARE - HEALTHCARE [place] [id number] MANAGED MEDICAID [place], [place] documented as of this encounter
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
--- OUTSIDE RECORDS SUMMARY | 2019-07-10 22:20 | XMS REPORT | Summary of Care ---
:1995 Author Organization [facility] Address [address] [place] [address] Care Team Providers Name Role Phone Shelby Taylor [facility] Primary Care Provider Luke Baker Insurance Hmo Encounter Details Date Type Department Care Team Description 05/18/2019 Patient Secure Msg [facility] RMP- Doctor UnassMaurice orozco [place] [address] [facility] [address] [place] [address] [place] [address] Allergies No Known Allergiesdocumented as of this [...] Leg times daily with cramps in meals. documented as of this encounter (statuses as [...] Description 06/22/2019 Nurse [facility]ites [facility] 06/25/2019 Routine OB Satellites Risk, Visit Mqn-Bnagq-Lt/High 08/03/2019 Hospital Encounter Obstetrics Fiorella Ni MD [address] [place] [address] 08/03/2019 Surgery Surgery Faculty, Ob SECTION [address] [place] [address] Health Maintenance Due Date Last Done Comments [...] O BOX Medicaid HEALTHCARE - HEALTHCARE [place] [id number] MANAGED MEDICAID [place], [place] documented as of this encounter
--- OUTSIDE RECORDS SUMMARY | 2019-07-10 22:20 | XMS REPORT | Summary of Care ---
:1995 Author Organization [facility] Address [address] [place] [address] Care Team Providers Name Role Phone Shelby [facility] Provider Luke Baker Insurance Hmo Encounter Details Date Type Department Care Team Description 05/18/2019 Patient Secure Msg [facility] RMP- Doctor UnassMaurice orozco [place] [address] [facility] [address] [place] [address] [place] [address] Allergies No Known Allergiesdocumented as of this [...] Description 06/22/2019 Nurse [facility] 06/25/2019 Routine OB Satellites Risk, Visit Ify-Akpno-Xa/High 08/03/2019 Hospital Encounter Obstetrics Fiorella Ni MD [address] [place] [address] 08/03/2019 Surgery Surgery Faculty, Ob SECTION [address] [place] [address] Health Maintenance Due Date Last Done Comments [...] O BOX Medicaid HEALTHCARE - HEALTHCARE [place] [id number] MANAGED MEDICAID [place], [place] documented as of this encounter
--- OUTSIDE RECORDS SUMMARY | 2019-07-10 22:20 | XMS REPORT | Summary of Care ---
:1995 Author Organization [facility] Address [address] [place] [address] Care Team Providers Name Role Phone Shelby Taylor Primary Care Provider Luke Baker Insurance Hmo Reason for Referral (Routine) Status Reason Specialty Diagnoses / Referred By Referred To Procedures Contact Contact Authorized Maternal Diagnoses IUGR (intrauterine growth restriction) affecting care of mother, third trimester , fetus 1 Ross Salazar Medicine Procedures CONSULT MATERNAL MEDICINE ULTRASOUND Preferred Location: ELADIO Lewis [address] [place] [address] Reason for Visit Reason Comments Care FLU Encounter Details Date Type Department Care Team Description 06/23/2019 Routine [facility]- Ross Salazar Supervision of high risk in third trimester (Primary Dx); Visit ELADIO Lewis Previous delivery affecting , antepartum; [address] [facility] [address] [facility] Threatened labor, third trimester; [facility] Multiparity; [address] [place], [place] History of delivery; [phone] IUGR (intrauterine growth restriction) affecting care of mother, third trimester, fetus 1; [phone] Body aches; [phone] Upper respiratory tract infection, unspecified type (Fax) [...] Comments Blood Pressure 115/78 06/23/2019 8:52 AM OFFICE NURSE Pulse 122 06/23/2019 8:52 AM OFFICE NURSE Temperature 36.6 C (97.9 F) 06/23/2019 8:52 AM OFFICE NURSE Respiratory Rate 18 06/23/2019 8:52 AM OFFICE NURSE Oxygen Saturation - - Inhaled Oxygen Concentration - - Weight 58.6 kg (129 lb 2 oz) 06/23/2019 8:52 AM OFFICE NURSE Height 154.9 cm (5' 1") 06/23/2019 8:52 AM OFFICE NURSE Body Mass Index 24.4 06/23/2019 8:52 AM OFFICE NURSE documented in this encounter Progress Notes Geri Julio RN - 06/23/2019 8:45 AM CST24 year old female in clinic today for [place] progesterone injection. 250 mg administered IM to [...] (2.438 kg) F , V ALEJANDRO Comments: [place] during this 1 05/12/13 30w0d 5 lb [...] file Gets together: Not on file Attends jewish service: Not on file Active member of [...] report she had USG on 06/18/2019 at [facility], CONCLUSION: 1. Single live IUP of 32 weeks and 4 day in cephalic presentation confirmed. 2. 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 Plan: CONSULT MATERNAL MEDICINE ULTRASOUND Preferred Location: [place] Body aches Upper respiratory tract infection, unspecified type Comment: see HPI Plan: POCT RAPID FLU A AND B TEST, POCT RAPID STREP SCREEN FOR GROUP A Tylenol PRN encouraged. 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 weeks. Discussed treatment options. Medications as ordered. Reviewed patient instructions and provided printed copy. This visit did not involve counseling and coordination that comprised more than 50% of the visit time. ELADIO Stearns 06/23/2019 10:04 AM documented in this encounter Plan of Treatment Date Type Specialty Care Team Description 06/24/2019 Rounding Machine Tender Visit Maternal Medicine 06/25/2019 Routine OB Satellites Risk, Visit Kdn-Lxalu-Jg/High 08/03/2019 Hospital Encounter Obstetrics Fiorella Ni MD [address] [place] [address]. [place] [address] 08/03/2019 Surgery Surgery Faculty, Ob SECTION [address] [place] [address] Health Maintenance Due Date Last Done Comments [...] for this SCREEN FOR GROUP A AM OFFICE NURSE tract infection, procedure are in unspecified type the results section. POCT RAPID FLU A AND Routine 06/23/2019 9:17 Upper respiratory Results for this B TEST AM OFFICE NURSE tract infection, procedure are in unspecified type the results section. POCT URINALYSIS Routine 06/23/2019 8:57 Supervision of high Results for this AM OFFICE NURSE risk in procedure are in third trimester the results section. documented in this encounter Results POCT RAPID STREP SCREEN FOR GROUP A (06/23/2019 9:18 AM OFFICE NURSE) POCT GP A STREP neg Negative - Negative Specimen Swab - THROAT POCT RAPID FLU A AND B TEST (06/23/2019 9:17 AM OFFICE NURSE) POCT INFLUENZA A neg Negative - Negative POCT INFLUENZA B neg Negative - Negative Specimen Swab POCT URINALYSIS W SPECIFIC GRAVITY (06/23/2019 8:57 AM OFFICE NURSE) POCT U SP GRAV 1,020 (A) 1.005 [...] AM 250 mg Left presv) (FREDERICK) 250 OFFICE NURSE Dorsogluteal-IM mg/mL (1 mL) injection 250 mg 250 mg, Intramuscular, QWEEKLY, 14 doses, First dose on Kathie 03/05/19 at 1415, Last dose on Kathie 06/04/19 at 1415, Routine Given 06/15/2019 9:59 AM OFFICE NURSE 250 mg Right Dorsogluteal-IM Given 06/04/2019 10:27 AM OFFICE NURSE 250 mg Right Dorsogluteal-IM documented in this encounter Insurance Payer Benefit Plan / Subscriber ID Effective Phone Address Type Group Dates SAMMY CHRISTIANSON xxxxxxxxx 2019-Pres [address] Medicaid HEALTHCARE [place]CARE [place] [id number] MANAGED MEDICAID [place], [place] documented as of this encounter
--- OUTSIDE RECORDS SUMMARY | 2019-07-10 22:21 | XMS REPORT | Summary of Care ---
:1995 Author Organization [facility] Address [address] [place] [address] Care Team Providers Name Role Phone Shelby Taylor [facility] Primary Care Provider Luke Baker Insurance Hmo Reason for Visit Reason Comments Care Encounter Details Date Type Department Care Team Description 06/25/2019 Routine [facility]- Shelby Taylor, [facility] [address] [place], [place] [address] Supervision of high risk in third trimester ( Primary Dx); Visit [place] Leslie Matthews, [facility] [address] [place], [place] [id number] Previous delivery affecting , antepartum; [address] Risk, Znb-Xzbbc-Wz/High Multiparity; [place], [place] History of delivery [id number] Allergies No Known Allergiesdocumented as of this encounter (statuses as of 06/25/2019) Medications Medication Sig Dispensed Refills Start Date [...] as of this encounter (statuses as of 06/25/2019) Active Problems Problem Noted Date IUGR (intrauterine [...] as of this encounter (statuses as of 06/25/2019) Resolved Problems Problem Noted Date Resolved Date 39 weeks gestation of 05/29/2019 05/30/2019 uterine contractions in second trimester, antepartum 05/14/201905/28 Candidiasis of vulva and vagina 03/30/2019 05/28/2019 documented as of this encounter (statuses as of 06/25/2019) Immunizations Name Administration Dates Next Due Influenza [...] Sign Reading Time Taken Comments Blood Pressure 113/72 06/25/2019 8:31 AM DEFENSE ATTORNEY Pulse 95 06/25/2019 8:31 AM DEFENSE ATTORNEY Temperature 36.3 C (97.4 F) 06/25/2019 8:31 AM DEFENSE ATTORNEY Respiratory Rate 16 06/25/2019 8:31 AM DEFENSE ATTORNEY Oxygen Saturation - - Inhaled Oxygen Concentration - - Weight 59.1 kg (130 lb 4 oz) 06/25/2019 8:31 AM DEFENSE ATTORNEY Height 154.9 cm (5' 1") 06/25/2019 8:31 AM DEFENSE ATTORNEY Body Mass Index 24.61 06/25/2019 8:31 AM DEFENSE ATTORNEY documented in this encounter Progress Notes Leslie Matthews, WHDIALLOP - 06/25/2019 8:00 AM CST Chief complaint: Chief Complaint Patient presents with Care HPI Natanael Dyson is a 24 year old WF who is 33w4d with IUP. Her 2019, by Last Menstrual Period. Denies headache, n/v, visual changes,sob,cp,ruq pain,bleeding,lof and ctxs. Has +FM. Histories OB History Para Term AB Living [...] (2.438 kg) F , V ALEJANDRO Comments: [place] during this 1 05/12/13 30w0d 5 lb [...] intercourse: 01/16/2019 Labs No new labs Radiology No new radiology. Allergies Natanael has No Known Allergies. Medications Natanael has a current medication list which includes the following prescription(s) : albuterol, calciumcarbonate, promethazine, bupropion sr, buspirone, cyclobenzaprine, ascorbic acid (vitamin c), ferrous sulfate, famotidine, hydroxyprogest(pf)(preg presv), and pnv 67-iron ps-folate no.1-dha. Review of Systems See HPI BP 113/72 (BP Location: Right arm, Patient Position: Sitting, BP CUFF SIZE: Adult Medium) | Pulse 95 | Temp 36.3 C (97.4 F) (Oral) | Resp 16 | Ht 5 ' 1" (1.549 m) | Wt 130 lb 4 oz (59.1 kg) | LMP 11/02/2018 | BMI 24.61 kg/m Pregravid BMI: Could not be calculated Physical Exam CONSTITUTIONAL: no apparent distress, appearing age-appropriate. GASTROINTESTINAL: abdomen soft, nontender, . NEUROLOGICAL/PSYCHIATRIC: alert, awake, and oriented x 3. Normal mood and affect. EXTREMITIES: No calf tenderness bilaterally.no pitting edema bilaterally. Musculoskeletal: no clubbing, cyanosis or edema, peripheral pulses 2+ in all extremities Assessment/Plan at 33w4d Supervision of high risk in third trimester (primary encounter diagnosis) Comment: 33w4d Plan: POCT URINALYSIS W SPECIFIC GRAVITY Previous delivery affecting , antepartum Comment: prev c/s x1 Plan: has appointment for repeat c/s on 08/03/19 NPO instructions given Multiparity Comment: desires BTL-consent signed Plan: to have with repeat c/s History of delivery Comment: on [place] weekly Plan: injection due next Saturday PTL warnings given RTC 2wk for visit and 36wk labs KARELY Chowdhury- #[id number] This visit did not involve counseling and coordination that comprised more than 50% of the visit time. documented in this encounter Plan of Treatment Date Type Specialty Care Team Description 06/30/2019 [facility]2019 Routine OB Satellites Shelby Taylor, Visit [facility] [address] [place], [place] [phone] 08/03/2019 Hospital Encounter Obstetrics Fiorella Ni MD [address] [place] [address] 08/03/2019 Surgery Surgery Faculty, Ob SECTION [address] [place] [address] Health Maintenance Due Date Last Done Comments [...] Name Priority Date/Time Associated Diagnosis Comments POCT URINALYSIS Routine 06/25/2019 8:32 AM Supervision of high Results for this DEFENSE ATTORNEY risk in procedure are in third trimester the results section. documented in this encounter Results POCT URINALYSIS W SPECIFIC GRAVITY (06/25/2019 8:32 AM DEFENSE ATTORNEY) POCT U SP GRAV . 1.005 - 1.025 mg/dl POCT PH U 8 5 - 8 mg/dl POCT U LEUK EST negative Negative - Negative POCT U NIT negative Negative - Negative POCT U PROT trace Negative - Negative POCT U GLU negative Negative - Negative POCT U KETONE negative Negative - Negative POCT U UROBILI . 0.2 - 1 mg/dl POCT U BILI . Negative - Negative POCT U BLD negative Negative - Negative POCT U COLOR POCT U APPEAR Specimen Urine - URINE, CLEAN CATCH documented in this encounter Visit Diagnoses Diagnosis Supervision of high risk in third trimester - Primary Unspecified high-risk Previous delivery affecting , antepartum Previous delivery, antepartum condition or complication Multiparity History of delivery documented in this encounter Insurance Payer Benefit Plan / Subscriber ID Effective Phone Address Type Group Dates SAMMY CHRISTIANSON xxxxxxxxx 2019-Pres [address] Medicaid HEALTHCARE - HEALTHCARE [place] [id number] MANAGED MEDICAID [place], [place]ID [place] documented as of this encounter
--- OUTSIDE RECORDS SUMMARY | 2019-07-10 22:21 | XMS REPORT | Summary of Care ---
:1995 Author Organization [facility] Address [address] [place] [address] Care Team Providers Name Role Phone [facility] Primary Care Provider Luke Baker Insurance Hmo Reason for Visit Reason Comments Care NON-STRESS TEST Encounter Details Date Type Department Care Team Description 05/28[facility]2019 [facility] Supervision of high risk in third trimester (Primary Dx); Visit ELADIO Lewis Multiparity; [address] [place] [address] [facility] History of section; [place] History of ; [address] [place], [place] Uterine irritability [phone] [address] Allergies No Known Allergiesdocumented as of this encounter (statuses as of 05/28/2019) Medications Medication Sig Dispensed Refills Start Date [...] during times daily. in third trimester, antepartum Hospital, Clinic, or Other Ordered Dose Route Frequency Start Date End Date Status Facility Administered Medication HYDROXYprogest(PF)(preg 250 mg IM QWEEKLY 03/05/2019 06/11/2019 Active presv) (FREDERICK) 250 mg/mL (1 mL) injection 250 mg documented as of this encounter (statuses as of 05/28/2019) Active Problems Problem Noted Date uterine contractions in second trimester, antepartum 05/14/2019 27 weeks gestation of 05/14/2019 BV (bacterial vaginosis) 05/14/2019 Anemia of mother in , antepartum 05/11/2019 Gastroesophageal reflux in 05/08/2019 Tubal ligation status 05/08/2019 Anxiety during in second trimester, antepartum 04/16/2019 Asthma affecting in second trimester 04/16/2019 Candidiasis of vulva and vagina 03/30/2019 Supervision of high risk in third trimester 02/06/2019 Multiparity 02/06/2019 History of section 02/06/2019 History of 02/06/2019 Estimated Date of Delivery Comments Yes 08/09/2019 Based on last menstrual period of 11/02/2018 documented as of this encounter (statuses as of 05/28/2019) Resolved Problems Problem Noted Date Resolved Date History of delivery 02/06/2019 05/08/2019 Overview: History of frederick inj documented as of this encounter (statuses as of 05/28/2019) Immunizations Name Administration Dates Next Due Influenza [...] Sign Reading Time Taken Comments Blood Pressure 109/68 05/28/2019 9:43 AM HIGH CLIMBER Pulse 101 05/28/2019 9:43 AM HIGH CLIMBER Temperature 36.5 C (97.7 F) 05/28/2019 9:43 AM HIGH CLIMBER Respiratory Rate 16 05/28/2019 9:43 AM HIGH CLIMBER Oxygen Saturation - - Inhaled Oxygen Concentration - - Weight 56.5 kg (124 lb 8 oz) 05/28/2019 9:43 AM HIGH CLIMBER Height 154.9 cm (5' 1") 05/28/2019 9:43 AM HIGH CLIMBER Body Mass Index 23.52 05/28/2019 9:43 AM HIGH CLIMBER documented in this encounter Progress Notes Ross Salazar, HYDRO PLANT SITE MANAGER - 05/28/2019 11:00 AM CST Chief complaint: Chief Complaint Patient presents with Care NON-STRESS TEST HPI CC: Follow Up Visit Natanael Dyson is a 24 year old, , /White female. Patient's last menstrual period was11/02/2018. She is 29w4d with an intrauterine . Her estimated date of delivery is 08/09/2019, by Last Menstrual Period. She complains of pressure x2 days. She reports +FM and denies contractions, LOF [...] M VAGINAL LORI Y ALEJANDRO Comments: Declined [place] in this 2 Term 02/01/15 39w0d 5 lb 6 oz (2.438 kg) F , V ALEJANDRO Comments: [place] during this 1 05/12/13 30w0d 5 lb [...] file Gets together: Not on file Attends sikh service: Not on file Active member of [...] control/protection: None Comment: Last intercourse: 01/16/2019 Labs Labs are pending. Radiology No new radiology. Allergies Natanael has No Known Allergies. Medications Natanael has a current medication list which includes the following prescription(s) : albuterol, calciumcarbonate, promethazine, bupropion sr, buspirone, cyclobenzaprine, ascorbic acid (vitamin c), ferrous sulfate, famotidine, hydroxyprogest(pf)(preg presv), and pnv 67-iron ps-folate no.1-dha, and the following Facility-Administered Medications: hydroxyprogest(pf)(preg presv). Review of Systems Constitutional: Negative for activity change, appetite change, fatigue, unexpected weight change, weight gain and weight loss. HENT: Negative for sore throat. Eyes: Negative for visual disturbance. Respiratory: Negative for cough and shortness of breath. Breasts: Negative for discharge, mass, pain and unequal size. Cardiovascular: Negative for chest pain, palpitations and leg swelling. Gastrointestinal: Negative. Negative for abdominal pain, anal bleeding, blood in stool, constipation, diarrhea, nausea, rectal pain and vomiting. Genitourinary: Negative for bladder incontinence, dysuria, urgency, flank pain, vaginal bleeding, vaginal discharge, genital sores, vaginal pain and pelvic pain. Skin: Negative for color change and rash. Neurological: Negative. Negative for dizziness, syncope and headaches. Psychiatric/Behavioral: Negative for confusion, self-injury and sleep disturbance. The patient is not nervous/anxious. Hematological: Negative for cold intolerance and heat intolerance. Endocrine: Negative for hair loss, cold intolerance, heat intolerance, weight gain and weight loss. BP 109/68 (BP Location: Right arm, Patient Position: Sitting, BP CUFF SIZE: Adult Medium) | Pulse 101 | Temp 36.5 C (97.7 F) (Oral) | Resp 16 | Ht 5 ' 1" (1.549 m) | Wt 124 lb 8 oz (56.5 kg) |LMP 11/02/2018 | BMI 23.52 kg/m Pregravid BMI: Could not be calculated Physical Exam PHYSICAL: General Exam: Neurological: Normal Abdomen: Normal Extremities: Normal Assessment/Plan Supervision of high risk in third trimester (primary encounter diagnosis) Multiparity History of section History of Comment: Routine Prantal Visit Plan: POCT URINALYSIS W SPECIFIC GRAVITY Denies zika virus risk, signs and symptoms such as fever,rash,joint pain, conjunctivitis (red eyes), muscle pain, headaches; outside [place] travel to areas affected by zika, and FOB exposure to zika.Educated on use of mosquito repellent. Uterine irritability Comment: NST reactive, no contractions Plan: NON-STRESS TEST Return to clinic in 2 weeks. Discussed treatment options. Medications as ordered. Reviewed patient instructions and provided printed copy. This visit did not involve counseling and coordination that comprised more than 50% of the visit time. ELADIO Stearns 05/28/2019 12:15 PM Zuleyma Roberto RN - 05/28/2019 11:00 AM CST24 year old female in clinic today for Frederick progesterone injection. 250 mg administered IM to right gluteus- see MAR entry. Witnessed by Javier Mir. Medication supplied by outside pharmacy. Pt tolerated injection well, warning signs discussed with her at this time. Pt instructed to RTC 1 wk for nextdose or PRN. Pt verbalized understanding. ZULEYMA DEGROOT RN 05/28/2019 9:41 AM documented in this encounter Plan of Treatment Date Type Specialty Care Team Description 06/04/2019 Routine OB Satellites Shelby Taylor, Visit [facility] [address] [facility] [place], [place] [address] 06/18/2019 Routine OB Satellites Risk, Visit Kus-Jkbok-Kq/High 08/03/2019 Hospital Encounter Obstetrics QuiñonezShelia MD [address] [place] [address] [place] [address] 08/03/2019 Surgery Surgery Faculty, Ob SECTION [address] [place] [address] Health Maintenance Due Date Last Done Comments PAP SMEAR 07/16/2019 Postponed from 02/19/2016 ( or ) HPV VACCINES (1 - Female 03/02/2020 Postponed from 2-dose series) 2006 ( or ) CHLAMYDIA SCREENING 05/14/2020 05/14/2019, 02/06/2019 DTaP,Tdap,and Td Vaccines (2 05/21/2029 05/21/2019 - Td) INFLUENZA VACCINE Completed 02/06/2019 PNEUMOCOCCAL 0-64 YEARS Discontinued COMBINED SERIES documented as of this encounter Procedures Procedure Name Priority Date/Time Associated Diagnosis Comments NON-STRESS Routine 05/28/2019 9:57 Uterine irritability Results for this TEST AM HIGH CLIMBER procedure are in the results section. POCT URINALYSIS Routine 05/28/2019 9:44 Supervision of high Results for this AM HIGH CLIMBER risk in procedure are in third trimester the results section. documented in this encounter Results NON-STRESS TEST (05/28/2019 9:57 AM HIGH CLIMBER) Specimen Narrative Performed At [facility] PACS Performing Organization Address City/State/Zipcode Phone Number PACS POCT URINALYSIS W SPECIFIC GRAVITY (05/28/2019 9:44 AM HIGH CLIMBER) POCT U SP GRAV . 1.005 - 1.025 mg/dl POCT PH U . 5 - 8 mg/dl POCT U LEUK EST . Negative - Negative POCT U NIT . Negative - Negative POCT U PROT trace Negative - Negative POCT U GLU neg Negative - Negative POCT U KETONE . Negative - Negative POCT U UROBILI . 0.2 - 1 mg/dl POCT U BILI . Negative - Negative POCT U BLD . Negative - Negative POCT U COLOR POCT U APPEAR Specimen Urine - URINE, CLEAN CATCH documented in this encounter Visit Diagnoses Diagnosis Supervision of high risk in third trimester - Primary Unspecified high-risk Multiparity History of section Other postprocedural status History of Previous delivery, delivered, with or without mention of antepartum condition Uterine irritability Unspecified disorder of uterus documented in this encounter Administered Medications Medication Order MAR Action Action Date Dose Rate Site HYDROXYprogest(PF)(preg Given 05/28/2019 9:41 AM 250 mg Right presv) (FREDERICK) 250 HIGH CLIMBER Dorsogluteal-IM mg/mL (1 mL) injection 250 mg 250 mg, Intramuscular, QWEEKLY, 14 doses, First dose on Kathie 03/05/19 at 1415, Last dose on Kathie 06/04/19 at 1415, Routine Given 05/21/2019 10:49 AM HIGH CLIMBER 250 mg Left Dorsogluteal-IM Given 05/15/2019 9:13 AM HIGH CLIMBER 250 mg Right Dorsogluteal-IM documented in this encounter Insurance Payer Benefit Plan / Subscriber ID Effective Phone Address Type Group Dates SAMMY CHRISTIANSON xxxxxxxxx 2019-Pres [address] Medicaid HEALTHCARE - HE[place]CARE [place] [id number] MANAGED MEDICAID [place], [place] documented as of this encounter
--- OUTSIDE RECORDS SUMMARY | 2019-07-10 22:21 | XMS REPORT | Summary of Care ---
:1995 Author Organization [facility] - Health Address [address] [place] [address] Care Team Providers Name Role Phone Shelby [facility] Primary Care Provider Luke Baker Insurance Hmo Encounter Details Date Type Department Care Team Description 05/11/2019 Orders Only [facility] Doctor Unassigned, No [address] [facility] [place] [address] [address] [place] [address] Allergies No Known Allergiesdocumented as of this encounter (statuses as of 05/27/2019) Medications Medication Sig Dispensed Refills Start Date [...] daily. Anemia of mother in , antepartum Hospital, Clinic, or Other Ordered Dose Route Frequency Start Date End Date Status Facility Administered Medication HYDROXYprogest(PF)(preg 250 mg IM QWEEKLY 03/05/2019 06/11/2019 Active presv) (ODESSA) 250 mg/mL (1 mL) injection 250 mg documented as of this encounter (statuses as of 05/27/2019) Active Problems Problem Noted Date uterine contractions in second trimester, antepartum 05/14/2019 27 weeks gestation of 05/14/2019 BV (bacterial vaginosis) 05/14/2019 Anemia of mother in , antepartum 05/11/2019 Gastroesophageal reflux in 05/08/2019 Tubal ligation status 05/08/2019 Anxiety during in second trimester, antepartum 04/16/2019 Asthma affecting in second trimester 04/16/2019 Candidiasis of vulva and vagina 03/30/2019 H/O delivery, currently , second trimester 02/06/2019 Multiparity 02/06/2019 History of section 02/06/2019 History of 02/06/2019 Estimated Date of Delivery Comments Yes 08/09/2019 Based on last menstrual period of 11/02/2018 documented as of this encounter (statuses as of 05/27/2019) Resolved Problems Problem Noted Date Resolved Date History of delivery 02/06/2019 05/08/2019 Overview: History of odesas inj documented as of this encounter (statuses as of 05/27/2019) Immunizations Name Administration Dates Next Due Influenza [...] Treatment Date Type Specialty Care Team Description 05/28/2019 Nurse Visit OB Satellites Visit, Elvin Nurse 06/04/2019 Routine OB Satellites Shelby Taylor, [facility] [address] [facility] [place] [address] [phone] 06/18/2019 Routine OB Satellites Risk, Visit Xbz-Rzjrr-Hy/High 08/03/2019 Hospital Encounter Obstetrics QuiñonezShelia MD [address] [place] [address] [address]. 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
--- OUTSIDE RECORDS SUMMARY | 2019-07-10 22:21 | XMS REPORT | Summary of Care ---
:1995 Author Organization [facility] Address [address] [place] [address] Care Team Providers Name Role Phone Shelby Taylor [facility] Primary Care Provider Luke Baker Insurance Hmo Reason for Visit Reason Comments Refill Request Encounter Details Date Type Department Care Team Description 06/24/2019 Telephone [facility]- Shelby Taylor, Refill Request [facility] [address] [facility] [address] [place] [address] [facility] [phone] [place] [address] Allergies No Known Allergiesdocumented as of this encounter (statuses as of 06/24/2019) Medications Medication Sig Dispensed Refills Start Date [...] as of this encounter (statuses as of 06/24/2019) Active Problems Problem Noted Date IUGR (intrauterine [...] as of this encounter (statuses as of 06/24/2019) Resolved Problems Problem Noted Date Resolved Date 39 weeks gestation of 05/29/2019 05/30/2019 uterine contractions in second trimester, antepartum 05/14/201905/28 Candidiasis of vulva and vagina 03/30/2019 05/28/2019 documented as of this encounter (statuses as of 06/24/2019) Immunizations Name Administration Dates Next Due Influenza [...] Date Type Specialty Care Team Description 06/24/2019 Welder Repair Visit Maternal Medicine 06/25/2019 Routine OB Satellites Risk, Visit Wgd-Vbxnz-Qr/High 08/03/2019 Hospital Encounter Obstetrics Fiorella Ni MD [address] [place] [phone] 08/03/2019 Surgery Surgery Faculty, Ob SECTION [address] [place] [address], [place] [address] Health Maintenance Due Date Last Done Comments [...] Alisson RYAN Medicaid HEALTHCARE - HEALTHCARE [place] [id number] MANAGED MEDICAID [place], [place] documented as of this encounter
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
--- OUTSIDE RECORDS SUMMARY | 2019-07-10 22:21 | XMS REPORT | Summary of Care ---
:1995 Author Organization [facility] Address [address] [place] [address] Care Team Providers Name Role Phone Shelby Taylor [facility] Primary Care Provider Luke Baker Insurance Hmo Reason for Visit Reason Comments Refill Request Encounter Details Date Type Department Care Team Description 05/19/2019 Refill [facility] Leslie Matthews, Refill Request [address] [place] [address] [address] [phone] [place] [address] Allergies No Known Allergiesdocumented as of this encounter (statuses as of 05/26/2019) Medications Medication Sig Dispensed Refills Start End Status Date Date PNV 67-iron Take 1 Each by 30 capsule 9 02/07/20 Active ps-folate no.1-dha mouth daily. 19 (VITAFOL ULTRA) 29 mg iron- 1 mg-200 mg CapIndications: Supervision of high risk , antepartum HYDROXYprogest,PF,,p 1 mL by 22 mL 0 02/10/20 Active reg presv, 250 mg/mL Intramuscular 19 020 (1 mL) route weekly for injectionIndications 22 doses. : History of delivery famotidine 40 mg Take 1 tablet by 30 tablet 3 05/08/20 Active tabletIndications: mouth daily. 19 Gastroesophageal reflux in ferrous sulfate 325 Take 1 tablet by 120 tablet 6 05/11/20 Active mg (65 mg iron) mouth 2 (two) 19 tabletIndications: times daily. Anemia of mother in , antepartum ascorbic acid, Take 1 tablet by 90 tablet 6 05/11/20 Active vitamin C, 500 mg mouth 3 (three) 19 tabletIndications: times daily. Anemia of mother in , antepartum ALBUTEROL 90 INHALE 2 PUFFS 7 Each 3 05/26/19 Active mcg/actuation BY MOUTH EVERY 6 20 inhalerIndications: HOURS NEEDED Asthma affecting FOR WHEEZING FOR in second SHORTNESS OF trimester BREATH proMETHazine 25 mg Take 1 tablet by 30 tablet 0 02/07/20 Discontinued tabletIndications: mouth every 6 19 020 (Reorder) Nausea and vomiting (six) hours as during needed for Nausea and Vomiting (N/V). calcium carbonate Take 1 tablet by 90 tablet 0 03/06/20 Discontinued 500 mg calcium mouth 3 (three) 19 020 (1,250 mg) times daily with tabletIndications: meals. Leg cramps in buPROPion XL Take 1 tablet by 30 tablet 0 03/26/20 Discontinued (WELLBUTRIN XL) 150 mouth daily. 19 020 mg 24 hr tabletIndications: Other depression busPIRone 10 mg Take 1 tablet by 60 tablet 3 04/16/20 Discontinued tabletIndications: mouth 2 (two) 19 020 Anxiety during times daily. in second trimester, antepartum acetaminophen-codein TAKE 2 TABLETS 0 02/22/20 Discontinued e 300-30 mg tablet BY MOUTH EVERY 6 19 020 HOURS NEEDED FOR PAIN CONTROL metroNIDAZOLE 250 mg Take 2 tablets 13 tablet 0 05/14/19 Discontinued tabletIndications: by mouth 2 (two) 20 020 BV (bacterial times daily. vaginosis) albuterol (PROVENTIL Inhale 2 Puffs 8.5 g 3 05/19/19 Discontinued HFA) 90 every 6 (six) 20 020 mcg/actuation hours as needed inhalerIndications: for Wheezing or Asthma affecting Shortness of in second Breath. trimester Hospital, Clinic, or Other Ordered Dose Route Frequency Start Date End Date Status Facility Administered Medication HYDROXYprogest(PF)(preg 250 mg IM QWEEKLY 03/05/2019 06/11/2019 Active presv) (ODESSA) 250 mg/mL (1 mL) injection 250 mg documented as of this encounter (statuses as of 05/26/2019) Active Problems Problem Noted Date uterine contractions [...] as of this encounter (statuses as of 05/26/2019) Resolved Problems Problem Noted Date Resolved Date History of delivery 02/06/2019 05/08/2019 Overview: History of odessa inj documented as of this encounter (statuses as of 05/26/2019) Immunizations Name Administration Dates Next Due Influenza [...] 06/04/2019 Routine OB Satellites Shelby Taylor, Visit [facility] [address] [place] [address] [phone] 06/18/2019 Routine OB Satellites Risk, Visit Wen-Nghyb-Hb/High 08/03/2019 Hospital Encounter Obstetrics QuiñonezShelia MD [address] [place] [address] [place] [address] [phone] 08/03/2019 Surgery Surgery Faculty, Ob SECTION [address] [place] [address] Health Maintenance Due Date Last Done Comments [...] Results Not on filedocumented in this encounter Visit Diagnoses Diagnosis Asthma affecting in second trimester documented in this encounter Insurance Payer Benefit Plan / Subscriber ID Effective Phone Address Type Group Dates SAMMY CHRISTIANSON xxxxxxxxx 2019-Pres Alisson RYAN Medicaid HEALTHCARE - HE[place]CARE [place] [id number] MANAGED MEDICAID [place], [place] documented as of this encounter
--- OUTSIDE RECORDS SUMMARY | 2019-07-10 22:22 | XMS REPORT | Summary of Care ---
:1995 Author Organization [facility] Address [address] [place] [address] Care Team Providers Name Role Phone Shelby Taylor [facility] Primary Care Provider Luke Baker Insurance Hmo Reason for Visit Reason Comments Care Encounter Details Date Type Department Care Team Description 05/21/2019 Routine [facility], [facility] [address] [place] [address] H/O delivery, currently , third trimester ( Primary Dx); Visit Dora HarrisRmchp-Np/High Anemia of mother in , antepartum; [address] Need for Tdap vaccination; [place], [place] Encounter for immunization; [id number] Back pain affecting in third trimester; [phone] Depression affecting in third trimester, antepartum; Anxiety during in third trimester, antepartum; High risk , antepartum; Previous delivery affecting , antepartum Allergies No Known Allergiesdocumented as of this encounter (statuses as of 05/31/2019) Medications Medication Sig Dispensed Refills Start Date End Date Status PNV 67-iron ps-folate Take 1 Each by 30 capsule 9 02/06/2019 Suspended no.1-dha (VITAFOL mouth daily. ULTRA) 29 mg iron- 1 mg-200 mg CapIndications: Supervision of high risk , antepartum Additional information proMETHazine 25 mg Take 1 tablet by 30 tablet 0 02/06/2019 05/18/2019 Discontinued tabletIndications: mouth every 6 (Reorder) Nausea and vomiting (six) hours as during needed for Nausea and Vomiting (N/V). HYDROXYprogest,PF,,pr 1 mL by 22 mL 0 02/09/2019 07/07/2019 Suspended eg presv, 250 mg/mL Intramuscular (1 mL) route weekly for injectionIndications: 22 doses. History of delivery Additional information calcium carbonate 500 mg Take 1 tablet 90 tablet 0 03/06/2019 05/21/2019 Discontinued calcium (1,250 mg) by mouth 3 tabletIndications: Leg (three) times cramps in daily with meals. buPROPion XL (WELLBUTRIN Take 1 tablet 30 tablet 0 03/26/2019 05/21/2019 Discontinued XL) 150 mg 24 hr by mouth tabletIndications: Other daily. depression busPIRone 10 mg Take 1 tablet 60 tablet 3 04/16/2019 05/21/2019 Discontinued tabletIndications: by mouth 2 Anxiety during (two) times in second trimester, daily. antepartum acetaminophen-codeine TAKE 2 0 02/21/2019 05/21/2019 Discontinued 300-30 mg tablet TABLETS BY MOUTH EVERY 6 HOURS NEEDED FOR PAIN CONTROL famotidine 40 mg Take 1 tablet 30 tablet 3 05/08/2019 Suspended tabletIndications: by mouth Gastroesophageal reflux daily. in Additional information ferrous sulfate 325 mg (65 mg Take 1 tablet by 120 tablet 6 05/11/2019 Suspended iron) tabletIndications: Anemia mouth 2 (two) of mother in , times daily. antepartum Additional information ascorbic acid, vitamin C, 500 Take 1 tablet by 90 tablet 6 05/11/2019 Suspended mg tabletIndications: Anemia of mouth 3 (three) mother in , antepartum times daily. Additional information metroNIDAZOLE 250 mg Take 2 tablets 13 tablet 0 05/14/2019 05/21/2019 Discontinued tabletIndications: BV by mouth 2 (bacterial vaginosis) (two) times daily. albuterol (PROVENTIL Inhale 2 Puffs 8.5 g 3 05/19/2019 05/26/2019 Discontinued HFA) 90 mcg/actuation every 6 (six) inhalerIndications: hours as Asthma affecting needed for in second Wheezing or trimester Shortness of Breath. cyclobenzaprine 10 mg Take 1 tablet 90 tablet 0 05/21/2019 Suspended tabletIndications: Back by mouth 3 pain affecting (three) times in third trimester daily as needed for Muscle Spasms. Additional information buPROPion SR (WELLBUTRIN SR) Take 1 tablet by 60 tablet 3 05/21/2019 Suspended 150 mg SR tabletIndications: mouth 2 (two) times Depression affecting daily. in third trimester, antepartum Additional information busPIRone 10 mg Take 1 tablet by 90 tablet 3 05/21/2019 Suspended tabletIndications: Anxiety mouth 3 (three) during in third times daily. trimester, antepartum Additional information Hospital, Clinic, or Other Ordered Dose Route Frequency Start Date End Date Status Facility Administered Medication HYDROXYprogest(PF)(preg 250 mg IM QWEEKLY 03/05/2019 06/11/2019 Active presv) (FREDERICK) 250 mg/mL (1 mL) injection 250 mg documented as of this encounter (statuses as of 05/31/2019) Active Problems Problem Noted Date Previous delivery affecting , antepartum 05/31/2019 uterine contractions 05/30/2019 Threatened labor, third trimester 05/28/2019 29 weeks [...] as of this encounter (statuses as of 05/31/2019) Resolved Problems Problem Noted Date Resolved Date 39 weeks gestation of 05/29/2019 05/30/2019 uterine contractions in second trimester, antepartum 05/14/201905/28 Candidiasis of vulva and vagina 03/30/2019 05/28/2019 History of delivery 02/06/2019 05/08/2019 Overview: History of frederick inj documented as of this encounter (statuses as of 05/31/2019) Immunizations Name Administration Dates Next Due Influenza [...] Sign Reading Time Taken Comments Blood Pressure 119/73 05/21/2019 9:38 AM [facility] Pulse 110 05/21/2019 9:38 AM [facility] Temperature 36.4 C (97.5 F) 05/21/2019 9:38 AM [facility] Respiratory Rate 16 05/21/2019 9:38 AM [facility] Oxygen Saturation - - Inhaled Oxygen Concentration - - Weight 56 kg (123 lb 8 oz) 05/21/2019 9:38 AM [facility] Height 154.9 cm (5' 1") 05/21/2019 9:38 AM [facility] Body Mass Index 23.34 05/21/2019 9:38 AM [facility] documented in this encounter Progress Notes Geri Julio RN - 05/21/2019 10:30 AM CSTPatient provided with 28 weeks packet; stressed the importance of the kick count of 10 x within 2 hours; patient verbalized understanding. Tdap given IM to right deltoid per aseptic tech; site massaged; band-aid applied ; tolerated well; VIS given and reviewed with patient at this time. Shared decision plan completed today. Reviewed s/s of labor. PHQ2 done at this time. Patient denies any complications at this time. Pt desires permanent sterilization. Discussed the 1/200 failure rate and the increased risk for ectopic with pt. Pt counseled on the risk of infection, hemorrhage, perforation to surrounding organs, reaction to anesthesia , and the high risk of regret with the procedure. 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 She is sure that she does not want any more children. Bilateral tubal ligation consent signed and copy given to pt. innea Jenkins RN - 05/21/2019 10:30 AM CSTPatient AB has been scheduled for ERCS w/BTL on 08/03/2019 @ 39.1wks as requested. Ghada Mayorga, [facility] - 05/21/2019 10:30 AM CST Chief complaint: Chief Complaint Patient presents with Care HPI CC: Follow Up Visit Natanael Dyson is a 24 year old, , /White female. Patient's last menstrual period was11/02/2018. She is 28w4d with an intrauterine . Her estimated date of delivery is 08/09/2019, by Last Menstrual Period. Previous c/s x1. Hx delivery, receiving weekly 17hP injections.Pt c/o back pain, and pelvic pain, but states only having a few ctx a day. Reports +FM. Taking buspar for anxiety, states meds are working, but desires increase in dose. Pt c/ o depression today, statesr/t family situation. Denies SI/HI. Histories OB History Para Term AB Living 4 3 1 2 3 SAB TAB Ectopic Multiple Live Births 3 # Outcome Date GA Lbr Ancelmo/2nd Weight Sex Delivery Anes PTL Lv 4 Current 3 01/09/16 31w0d 5 lb 6 oz (2.438 kg) M VAGINAL LORI Y ALEJANDRO Comments: Declined Bartelso in this 2 Term 02/01/15 39w0d 5 lb 6 oz (2.438 kg) F , V ALEJANDRO Comments: Bartelso during this 1 05/12/13 30w0d 5 lb [...] file Gets together: Not on file Attends jehovah's witness service: Not on file Active member of [...] which includes the following prescription(s) : albuterol, metronidazole, ascorbic acid (vitamin c), ferrous sulfate, acetaminophen-codeine, famotidine, buspirone, bupropion xl, calcium carbonate, hydroxyprogest(pf)(preg presv), pnv 67-iron ps-folate no.1-dha, and promethazine , and the following Facility-Administered Medications: hydroxyprogest(pf)(preg presv). Review of Systems Genitourinary: Positive for pelvic pain (and pressure). Musculoskeletal: Positive for back pain. All other systems reviewed and are negative. BP 119/73 (BP Location: Right arm, Patient Position: Sitting, BP CUFF SIZE: Adult Medium) | Pulse 110 | Temp 36.4 C (97.5 F) (Oral) | Resp 16 | Ht 5 ' 1" (1.549 m) | Wt 123 lb 8 oz (56 kg) | LMP 11/02/2018 | BMI 23.34 kg/m Pregravid BMI: Could not be calculated Physical Exam PHYSICAL: General Exam: Neurological: Normal Alert, oriented to person, place, time, and situation Abdomen: Normal Soft, non-tender, gravid Extremities: Normal No edema noted Pelvic Exam: Cervix: SVE 0cm Assessment/Plan at 28w4d History of Delivery, Currently , third trimester Comment: receiving weekly 17HP injections. Pt c/o back pain, and pelvic pain, but states only havinga few ctx a day. Reports +FM. Desires SVE. SVE 0cm. Plan: continue weekly 17HP injections through 36 wks. Strong PTL warnings given. Previous Section Affecting Comment: previous c/s x1. I counseled the patient regarding risks and benefits of . Benefits of successful include shorter maternal hospitalizations, less blood loss and fewer transfusions, fewer infections, and fewer thromboembolic events than repeat delivery. Risks of trial of labor may be associated with major maternal complications, such as uterine rupture ( less than 1% for low transverse and 4-9% for classical/T-shaped uterine scar) that lead to emergent c-sec, hysterectomy, and operative injury, as well as increased maternal infection and the need for transfusion. Uterine rupture may also lead to maternal and injury, severe neurological damage ( (at a rate of 0.46 per 1000 trials of labor), or even . Pt informed of risk of uterine rupture is approximately double with use of pitocin for induction of labor. After counseling, patient desires repeat c/s. Plan: repeat c/s scheduled for 08/03/2019. Pt given NPO instructions today. Anxiety during in third trimester, antepartum Comment: previously counseled regarding category B of buspar. After counseling, patient desired meds. Currently taking buspar 7.5mg BID. States meds are helping, but feels a higher dose wouldbe more helpful. Denies SI/HI. Plan: rx today busPIRone 10 mg tablet PO TID. Warnings given. Supervision of high risk , antepartum Comment: Plan: POCT URINALYSIS W SPECIFIC GRAVITY Depression affecting in third trimester, antepartum Comment: states buspar working for anxiety, but feels depressed r/t her family situation. Denies SI/HI. Pt counseled today regarding category C of meds. After counseling, desires meds. Plan: rx today buPROPion SR (WELLBUTRIN SR) 150 mg SR tablet daily. Warnings given. Anemia of mother in , antepartum Comment: HGB (g/dL) Date Value 05/08/2019 10.2 (L) Plan: rx today ferralet daily. REcheck at 36wks Need for Tdap vaccination Encounter for immunization Comment: Plan: TDAP (ADACEL) IMMUNIZATION given today Back pain affecting in third trimester Comment: not relieved with tylenol Plan: rx today cyclobenzaprine 10 mg tablet Multiparity Tubal Ligation Status Comment: . Desires BTL - consent signed today(05/21/2019) Plan: BTL with repeat c/s Warnings and POC discussed. Labs collected today. This visit did not involve counseling and coordination that comprised more than 50% of the visit time. documented in this encounter Plan of Treatment Date Type Specialty Care Team Description 06/04/2019 Routine OB Satellites Shelby Taylor, Visit [facility] [address] [place] [address] [phone] 06/18/2019 Routine OB Satellites Risk, Visit Xka-Twtam-Pj/High 08/03/2019 Surgery Surgery Faculty, Ob SECTION [address] [place] [address] Health Maintenance Due Date Last Done Comments [...] Procedure Name Priority Date/Time Associated Diagnosis Comments GALV ONLY - SYPHILIS Routine 05/21/2019 10:36 High risk , Results for this IGG/IGM AM [facility] antepartum procedure are in the results section. HIV 1/2 AG-AB WITH Routine 05/21/2019 10:36 High risk , Results for this REFLEX AM [facility] antepartum procedure are in the results section. TDAP (ADACEL) Routine 05/21/2019 10:10 Need for Tdap IMMUNIZATION AM [facility] vaccination Encounter for immunization POCT URINALYSIS Routine 05/21/2019 9:39 High risk , Results for this AM [facility] antepartum procedure are in the results section. documented in this encounter Results GALV ONLY - SYPHILIS IGG/IGM (05/21/2019 10:36 AM [facility]) Syphilis IgG/IgM Non-reactive Non-reactive [facility] Specimen Blood - ARM, LEFT Narrative Performed At [facility] Non-reactive - No serologic evidence of T. pallidum infection. Cannot exclude incubating or early syphilis. Submit a second specimen in 2-4 weeks if syphilis is clinically suspected. Equivocal - Further testing to follow. Reactive - Further testing to follow. Performing Organization Address City/State/Zipcode Phone Number [facility] CLIA: [id number], [address] [place] [address] [facility] HIV 1/2 AG-AB WITH REFLEX (05/21/2019 10:36 AM [facility]) HIV 1/2 Ag-Ab with Negative Negative [facility] Reflex SERVICES HIV Semi-quantitative 0.07 [facility] Specimen Blood - ARM, LEFT Narrative Performed At Non-reactive for HIV-1 antigen and HIV-1/HIV-2 antibodies. [facility] No laboratory evidence of HIV infection. Repeat in 2-4 weeks if acute HIV infection is suspected. Performing Organization Address City/State/Zipcode Phone Number [facility] CLIA: [id number], [address] [place] [address] [phone] [facility] POCT URINALYSIS W SPECIFIC GRAVITY (05/21/2019 9:39 AM [facility]) POCT U SP GRAV . 1.005 - 1.025 mg/dl POCT PH U 7 5 - 8 mg/dl POCT U LEUK EST Trace Negative - Negative POCT U NIT Neg Negative - Negative POCT U PROT Trace Negative - Negative POCT U GLU Neg Negative - Negative POCT U KETONE None Negative - Negative POCT U UROBILI . 0.2 - 1 mg/dl POCT U BILI . Negative - Negative POCT U BLD Neg Negative - Negative POCT U COLOR POCT U APPEAR Specimen Urine - URINE, CLEAN CATCH documented in this encounter Visit Diagnoses Diagnosis H/O delivery, currently , third trimester - Primary Anemia of mother in , antepartum Anemia, antepartum Need for Tdap vaccination Need for prophylactic vaccination with combined mgiazkoqfa-alqvful-cwsjuymny ( DTP) vaccine Encounter for immunization Need for other specified prophylactic vaccination against single bacterial disease Back pain affecting in third trimester Depression affecting in third trimester, antepartum Anxiety during in third trimester, antepartum High risk , antepartum Previous delivery affecting , antepartum Previous delivery, antepartum condition or complication documented in this encounter Administered Medications Medication Order MAR Action Action Date Dose Rate Site HYDROXYprogest(PF)(preg Given 05/28/2019 9:41 AM 250 mg Right presv) (FREDERICK) 250 [facility] Dorsogluteal-IM mg/mL (1 mL) injection 250 mg 250 mg, Intramuscular, QWEEKLY, 14 doses, First dose on Kathie 03/05/19 at 1415, Last dose on Kathie 06/04/19 at 1415, Routine Given 05/21/2019 10:49 AM [facility] 250 mg Left Dorsogluteal-IM Given 05/15/2019 9:13 AM [facility] 250 mg Right Dorsogluteal-IM documented in this encounter Insurance Payer Benefit Plan / Subscriber ID Effective Phone Address Type Group Dates SAMMY CHRISTIANSON xxxxxxxxx 2019-Pres [place] [address] Medicaid HEALTHCARE - HE[place]CARE [place] [id number] MANAGED MEDICAID [place], [place] documented as of this encounter
--- OUTSIDE RECORDS SUMMARY | 2019-07-10 22:22 | XMS REPORT | Summary of Care ---
:1995 Author Organization [facility] Address [address] [place] [address] Care Team Providers Name Role Phone [facility] Provider Luke Baker Insurance Hmo Encounter Details Date Type Department Care Team Description 05/21/2019 Orders Only [facility] Doctor Unassigned, No [address] [facility] [place] [address] [address] [place] [address] Allergies No Known Allergiesdocumented as of this [...] Routine OB Satellites Shelby Taylor, Visit [facility] [address] [place], [place] [address] 06/18/2019 Routine OB Satellites Risk, Visit Fqx-Omhum-Ee/High 08/03/2019 Hospital Encounter Obstetrics QuiñonezShelia MD [address] [place] [address] [place] [address] [phone] 08/03/2019 Surgery Surgery Faculty, Ob SECTION [address] [place] [address] Health Maintenance Due Date Last Done Comments [...] Procedure Name Priority Date/Time Associated Diagnosis Comments STERILIZATION CONSENT Routine 05/21/2019 12:01 AM [employer] documented in this encounter Results Not on filedocumented in this encounter Insurance Payer Benefit Plan / Subscriber ID Effective Phone Address Type Group Dates SAMMY CHRISTIANSON xxxxxxxxx 2019-Pres Alisson RYAN Medicaid HEALTHCARE - HEALTHCARE [place] [id number] MANAGED MEDICAID [place] documented as of this encounter
--- OUTSIDE RECORDS SUMMARY | 2019-07-10 22:22 | XMS REPORT | Summary of Care ---
:1995 Author Organization [facility] - Health Address [address] [place] [address] Care Team Providers Name Role Phone Shelby [facility] Provider Luke Baker Insurance Hmo Encounter Details Date Type Department Care Team Description 05/30/2019 - Hospital Labor and Delivery Fiorella Ni MD Threatened 05/31/2019 Encounter ([id number]) [address] labor, third [address] [place] [address]. trimester [place], [place] [id number] Allergies No Known Allergiesdocumented as of this [...] daily. Anemia of mother in , antepartum documented as of this encounter (statuses [...] Sign Reading Time Taken Comments Blood Pressure 98/57 05/31/2019 8:50 AM UNDERCOATER Pulse 98 05/31/2019 11:00 AM UNDERCOATER Temperature 36.8 C (98.3 F) 05/31/2019 8:50 AM UNDERCOATER Respiratory Rate 16 05/31/2019 8:50 AM UNDERCOATER Oxygen Saturation 97% 05/31/2019 6:00 AM UNDERCOATER Inhaled Oxygen Concentration - - Weight 56.2 kg (124 lb) 05/30/2019 3:45 PM UNDERCOATER Height 154.9 cm (5' 1") 05/30/2019 3:45 PM UNDERCOATER Body Mass Index 23.43 05/30/2019 3:45 PM UNDERCOATER documented in this encounter Progress Notes Jarod Neves MD - 05/31/2019 6:13 AM CSTR2 OB Progress Note 6:13 AM BSUS performed for weight. Presentation: cephalic Weight: 1511 g (41st %) Jarod Neves #[id number] Obstetrics & Gynecology ndreia Hopper MD - 05/30/2019 10:37 PM CSTProgress Note Notified by nurse patient was feeling lower cramping discomfort. SVE: unchanged from previous exam, 0/ballotable at 2145 Will give Tylenol at this time. Patient also stating would like Benadryl, 50 mg ordered Andreia Hopper MD 05/30/2019 Rosemarie Fowler MD - 05/30/2019 6:13 PM CSTR2 Ob Counseling Note I counseled the patient regarding risks and benefits of trial of labor after cesarian section. Benefits of successful include shorter maternal hospital stay, less blood loss and lower incidence oftranfusions, infections, and throbmoembolic events than compared to repeat cesarian delivery. Risks of trial of labor include uterine rupture (approx 0.5-0.9% for low transverse/low vertical, 4-9% for classical/T-shaped uterine scars, and 0.9-1.8% for two previous scars) which may lead to emergent , infection, hemorrhage with need for blood transfusion/products, operative injury, and/or hysterectomy. Uterine rupture may also lead to maternal , injury, severe neurological damage at a rate of 0.8 per 1000 trials of labor, or even (approx 0.13%). Patient also counseled on increased risk of uterine rupture with pitocin augmentation (approx 0.9-1.4% for low transverse and 2-5% with undocumented scar). Patient is aware of trial of labor failure rate of 20- 40% with subsequent need for elective repeat . Patient voiced understanding of the risks and benefits of TOLAC and in a sound mind declines to proceed with trial of labor. All questions answered at bedside. Patient desires ERCS+BTL is she goes into labor. Rosemarie Mcdonald MD PGY-2, Department of Obstetrics and Gynecology Pager# [phone] signed by Rosemarie Mcdonadl MD at 05/30/2019 6:14 PM CSTBeRosemarie montaño MD - 05/30/2019 6:12 PM CST BTL COUNSELING NOTE Natanael Dyson is a @ 29w6d presenting for contractions. "I counseled the patient regarding incentives, risks, benefits and alternatives of Bilateral Tubal Ligation including: risk of infection, bleeding, need for transfusion of blood/blood products, injury to ureter, bladder, bowel with possible further surgery, stint, catheterization or colostomy to repair. The permanence of this procedure and risk of regret in 1 in 3 women were discussed. tubal ligation failure rate is 0.75% and higher in women younger than 30 years old. There is an increased risk for ectopic and the need to seek medical attention should failure of tubal ligation occur. Alternatives discussed include: Oral Contraceptive Agents, Intrauterine Device, Depo Provera, Ring, Patch, Condoms/foam, interval bilateral tubal ligation, or vasectomy of partner. Allquestions answered, and patient expressed her desire to proceed with bilateral tubal ligation surgery." HGB (g/dL) Date Value 05/08/2019 10.2 (L) HCT (%) Date Value 05/08/2019 30.9 (L) PLT (10*3/L) Date Value 05/08/2019 267 Previous abdominal surgery: Past Surgical History: Procedure Laterality Date SECTION 2014 No Known Allergies Rosemarie Mcdonald MD PGY-2, Department of Obstetrics and Gynecology Pager# [phone] signed by Rosemarie Mcdonald MD at 05/30/2019 6:13 PM CSTdocumented in this encounter Plan of Treatment Date Type Specialty Care Team Description 06/04/2019 Routine OB Satellites Shelby Taylor, Visit [facility] [address] [place] [address] [phone] 06/18/2019 Routine OB Satellites Risk, Visit Ouf-Tjydv-Zx/High 08/03/2019 Surgery Surgery Faculty, Ob SECTION [address] [place] [address] Name Type Priority Associated Diagnoses Date/Time GC & CHLAMYDIA AMPLIFIED LAB STAT 05/30/2019 4:23 PM UNDERCOATER ASSAY Name Type Priority Associated Diagnoses Order Schedule GC & CHLAMYDIA AMPLIFIED LAB STAT STAT for 1 Occurrences ASSAY starting 05/30/2019 until 05/30/2019 URINE CULTURE LAB STAT STAT for 1 Occurrences starting 05/30/2019 until 05/30/2019 Health Maintenance Due Date Last Done Comments [...] encounter Procedures Procedure Name Priority Date/Time Associated Comments Diagnosis URINALYSIS STAT 05/30/2019 8:07 PM Results for this UNDERCOATER procedure are in the results section. GALV ONLY - SYPHILIS STAT 05/30/2019 5:45 PM Results for this IGG/IGM UNDERCOATER procedure are in the results section. HEPATITIS B SURFACE STAT 05/30/2019 5:45 PM Results for this ANTIGEN UNDERCOATER procedure are in the results section. HB ABO GROUPING STAT 05/30/2019 5:30 PM Results for this UNDERCOATER procedure are in the results section. documented in this encounter Results URINALYSIS (05/30/2019 8:07 PM UNDERCOATER) Pathologist [facility] APPEARANCE Hazy (A) Clear [facility] COLOR Yellow Yellow [facility] PH 7.0 4.8 - 8.0 [facility] SP GRAVITY 1.020 1.003 - 1.030 [facility] GLU U QUAL Normal Normal [facility] BLOOD Negative Negative [facility] KETONES Negative Negative [facility] PROTEIN Negative Negative [facility] UROBILIN Normal Normal [facility] BILIRUBIN Negative Negative [facility] NITRITE Negative Negative [facility] LEUK ANJELICA Negative Negative [facility] RBC/HPF 1 0 - 3 HPF [facility] WBC/HPF 2 0 - 5 HPF [facility] BACTERIA Negative Negative [facility] MUCOUS Slight (A) Negative LPF [facility] AMORPHOUS Few (A) Rare HPF [facility] SQ EPITH 2 <=2 HPF [facility] Specimen Urine - URINE, CLEAN CATCH Performing Organization Address City/State/Zipcode Phone Number [facility] CLIA: [id number], [address] [place] [address] [facility] GALV ONLY - SYPHILIS IGG/IGM (05/30/2019 5:45 PM UNDERCOATER) Pathologist [facility] Syphilis IgG/IgM Non-reactive Non-reactive [facility] Specimen Blood - ARM, LEFT Narrative Performed At [facility] Non-reactive - No serologic evidence of T. pallidum infection. Cannot exclude incubating or early syphilis. Submit a second specimen in 2-4 weeks if syphilis is clinically suspected. Equivocal - Further testing to follow. Reactive - Further testing to follow. Performing Organization Address City/State/Zipcode Phone Number [facility] CLIA: [id number], [address] [place] [id number] [facility] Hepatitis B Surface Antigen (05/30/2019 5:45 PM UNDERCOATER) Pathologist [facility] HBsAg Negative Negative [facility] HBsAg 0.06 [facility] Semi-Quantitative SERVICES Specimen Blood - VENOUS Performing Organization Address City/State/Zipcode Phone Number [facility] CLIA: [id number], [address] [place] [address] [facility] Type and Screen - ONCE STAT (05/30/2019 5:30 PM UNDERCOATER) ABO & RH A POSITIVE LAB Comment: Performed at [facility] Laboratory Services - [facility] Blood [place] [address] Toll Free: [phone] CLIA No. [id number] IAT Negative LAB Comment: Performed at [facility] Laboratory Services - [facility] Blood [place] [address] Toll Free: [phone] CLIA No. [id number] Specimen Blood - VENOUS Performing Organization Address City/State/Zipcode Phone Number D LAB documented in this encounter Visit Diagnoses Diagnosis Supervision of high risk in third trimester Unspecified high-risk History of Previous delivery, delivered, with or without mention of antepartum condition History of section Other postprocedural status Multiparity Asthma affecting in third trimester 29 weeks gestation of state, incidental Threatened labor, third trimester BV (bacterial vaginosis) Vaginitis and vulvovaginitis, unspecified Tubal ligation status uterine contractions Threatened premature labor, unspecified as to episode of care documented in this encounter Administered Medications Medication Order MAR Action Action Date Dose Rate Site acetaminophen (TYLENOL) tablet Given 05/31/2019 4:19 AM UNDERCOATER 650 mg 650 mg 650 mg, Oral, Q4HPRN, Starting 05/30/19 at 2118, Until Discontinued, Routine, Pain (scale 1-3), Pain (scale 4-6) Given 05/30/2019 9:24 PM UNDERCOATER 650 mg alum-mag hydroxide-simeth (MAALOX PLUS / MAG-AL PLUS) 200-200-20 mg/5 mL suspension 30 mL 30 mL, Oral, Q6HPRN, Starting 05/30/19 at 1708, Until Discontinued, Routine , Indigestion docusate calcium (SURFAK) capsule 240 mg 240 mg, Oral, QHSPRN, Starting 05/30/19 at 1708, Until Discontinued, Routine , Constipation lactated ringers IV infusion 500 New Bag 05/30/2019 8:11 PM UNDERCOATER 500 mL 999 mL/hr mL at 999 mL/hr, 500 mL, IV Infusion, PRN - SEE INSTRUCTIONS, Starting 05/30/19 at 1708, Until Discontinued, Routine magnesium hydroxide (MILK OF MAGNESIA) 400 mg/5 mL suspension 30 mL 30 mL, Oral, QDAILYPRN, Starting 05/30/19 at 1708, Until Discontinued, Routine, Constipation vitamin w/FA (PRENATABS RX) tablet 1 tablet 1 tablet, Oral, DAILY, First dose on 05/31/19 at 0900, Until Discontinued, Routine Medication Order MAR Action Action Date Dose Rate Site acetaminophen (TYLENOL) tablet Given 05/30/2019 5:32 PM UNDERCOATER 650 mg 650 mg 650 mg, Oral, ONCE NOW, 1 dose, 05/30/19 at 1700, Routine diphenhydrAMINE (BENADRYL) injection 50 mg Given 05/30/2019 9:48 PM UNDERCOATER 50 mg 50 mg, Slow IV Push, ONCE, 1 dose, 05/30/19 at 2245, Routine diphenhydrAMINE (BENADRYL) tablet 50 mg Given 05/31/2019 11:54 AM UNDERCOATER 50 mg 50 mg, Oral, ONCE, 1 dose, 05/31/19 at 1215, Routine documented in this encounter Insurance Payer Benefit Plan / Subscriber ID Effective Phone Address Type Group Dates SAMMY CHRISTIANSON xxxxxxxxx 2019-Pres [address] Medicaid HEALTHCARE - HEALTHCARE ent [id number] MANAGED MEDICAID [place], [place]ICAID [place] documented as of this encounter
--- OUTSIDE RECORDS SUMMARY | 2019-07-10 22:22 | XMS REPORT | Summary of Care ---
:1995 Author Organization [facility] Address [address] [place] [address] Care Team Providers Name Role Phone Shelby Taylor [facility] Primary Care Provider Luke Baker Insurance Hmo Reason for Visit Reason Comments Care Encounter Details Date Type Department Care Team Description 05/21/2019 Routine [facility]- Ghada Mckeon, [facility] [address] [place] [address] H/O delivery, currently , third trimester ( Primary Dx); Visit Dora HarrisRmchp-Np/High Anemia of mother in , antepartum; [address] Need for Tdap vaccination; [place], [place] Encounter for immunization; [id number] Back pain affecting in third trimester; [phone] Depression affecting in third trimester, antepartum; Anxiety during in third trimester, antepartum; High risk , antepartum Allergies No Known Allergiesdocumented as [...] of 05/31/2019) Active Problems Problem Noted Date uterine contractions 05/30/2019 Threatened labor, third trimester [...] Comments Blood Pressure 119/73 05/21/2019 9:38 AM SALES AND BUSINESS DEVELOPMENT MANAGER Pulse 110 05/21/2019 9:38 AM SALES AND BUSINESS DEVELOPMENT MANAGER Temperature 36.4 C (97.5 F) 05/21/2019 9:38 AM SALES AND BUSINESS DEVELOPMENT MANAGER Respiratory Rate 16 05/21/2019 9:38 AM SALES AND BUSINESS DEVELOPMENT MANAGER Oxygen Saturation - - Inhaled Oxygen Concentration - - Weight 56 kg (123 lb 8 oz) 05/21/2019 9:38 AM SALES AND BUSINESS DEVELOPMENT MANAGER Height 154.9 cm (5' 1") 05/21/2019 9:38 AM SALES AND BUSINESS DEVELOPMENT MANAGER Body Mass Index 23.34 05/21/2019 9:38 AM SALES AND BUSINESS DEVELOPMENT MANAGER documented in this encounter Progress Notes Geri [...] of regret with the procedure. Pt declines cable tender methods, including the iud and nexplanon. She is sure that she does not want any more children. Bilateral tubal ligation consent signed and copy given to pt. innea Jenkins RN - 05/21/2019 10:30 AM CSTPatient AB has been scheduled for ERCS w/BTL on 08/03/2019 @ 39.1wks as requested. NNEMcBrittni Ghada L, [facility] - 05/21/2019 10:30 AM CST Chief complaint: Chief Complaint Patient presents with Care HPI CC: Follow Up Visit Natanael Dyson is a 24 year old, , /White female. Patient's last menstrual period was11/02/2018. She is 28w4d with an intrauterine . Her estimated date of delivery is 08/09/2019, by Last Menstrual Period. Hx delivery, receiving weekly 17hP injections. Pt c/o back pain, and pelvic pain, but states only having a few ctx a day. Reports +FM. Taking buspar for anxiety, states meds are working, but desires increase in dose. Pt c/o depression today, states r/t family situation. Denies SI/HI. Histories OB History Para Term AB Living 4 3 1 2 3 SAB TAB Ectopic Multiple Live Births 3 # Outcome Date GA Lbr Ancelmo/2nd Weight Sex Delivery Anes PTL Lv 4 Current 3 01/09/16 31w0d 5 lb 6 oz (2.438 kg) M VAGINAL LORI Y ALEJANDRO Comments: Declined [place] in this 2 Term 02/01/15 39w0d 5 [...] file Gets together: Not on file Attends christianity service: Not on file Active member of [...] through 36 wks. Strong PTL warnings given. Anxiety during in third trimester, antepartum Comment: [...] 06/04/2019 Routine OB Satellites Shelby Taylor, Visit [facility] [address] [place] [address] 06/18/2019 Routine OB Satellites Risk, Visit Dpb-Rkpny-Dq/High 08/03/2019 Surgery Surgery Faculty, Ob SECTION [address] [place] [address] Health Maintenance Due Date Last Done Comments [...] risk , Results for this IGG/IGM AM SALES AND BUSINESS DEVELOPMENT MANAGER antepartum procedure are in the results section. HIV 1/2 AG-AB WITH Routine 05/21/2019 10:36 High risk , Results for this REFLEX AM SALES AND BUSINESS DEVELOPMENT MANAGER antepartum procedure are in the results section. TDAP (ADACEL) Routine 05/21/2019 10:10 Need for Tdap IMMUNIZATION AM SALES AND BUSINESS DEVELOPMENT MANAGER vaccination Encounter for immunization POCT URINALYSIS Routine 05/21/2019 9:39 High risk , Results for this AM SALES AND BUSINESS DEVELOPMENT MANAGER antepartum procedure are in the results section. documented in this encounter Results GALV ONLY - SYPHILIS IGG/IGM (05/21/2019 10:36 AM SALES AND BUSINESS DEVELOPMENT MANAGER) Pathologist [facility] Syphilis IgG/IgM Non-reactive Non-reactive [facility] Specimen Blood - ARM, LEFT Narrative Performed At [facility] Non-reactive - No serologic evidence of T. pallidum infection. Cannot exclude incubating or early syphilis. Submit a second specimen in 2-4 weeks if syphilis is clinically suspected. Equivocal - Further testing to follow. Reactive - Further testing to follow. Performing Organization Address City/State/Zipcode Phone Number [facility] CLIA: [id number], [address] [place] [id number] [facility] HIV 1/2 AG-AB WITH REFLEX (05/21/2019 10:36 AM SALES AND BUSINESS DEVELOPMENT MANAGER) Pathologist [facility] HIV 1/2 Ag-Ab with Negative Negative [facility] Reflex SERVICES HIV Semi-quantitative 0.07 [facility] Specimen Blood - ARM, LEFT Narrative Performed At Non-reactive for HIV-1 antigen and HIV-1/HIV-2 antibodies. [facility] No laboratory evidence of HIV infection. Repeat in 2-4 weeks if acute HIV infection is suspected. Performing Organization Address City/State/Zipcode Phone Number [facility] CLIA: [id number], [address] [place] [address] [phone] [facility] POCT URINALYSIS W SPECIFIC GRAVITY (05/21/2019 9:39 AM SALES AND BUSINESS DEVELOPMENT MANAGER) Pathologist [facility] POCT U SP GRAV . 1.005 - [...] vaccination Need for prophylactic vaccination with combined evlssltgto-nhstgaa-odmngqqft ( DTP) vaccine Encounter for immunization Need for other specified prophylactic vaccination against single bacterial disease Back pain affecting in third trimester Depression affecting in third trimester, antepartum Anxiety during in third trimester, antepartum High risk , antepartum documented in this encounter Administered Medications Medication Order MAR Action Action Date Dose Rate Site HYDROXYprogest(PF)(preg Given 05/28/2019 9:41 AM 250 mg Right presv) (FREDERICK) 250 SALES AND BUSINESS DEVELOPMENT MANAGER Dorsogluteal-IM mg/mL (1 mL) injection 250 mg 250 mg, Intramuscular, QWEEKLY, 14 doses, First dose on Kathie 03/05/19 at 1415, Last dose on Kathie 06/04/19 at 1415, Routine Given 05/21/2019 10:49 AM SALES AND BUSINESS DEVELOPMENT MANAGER 250 mg Left Dorsogluteal-IM Given 05/15/2019 9:13 AM SALES AND BUSINESS DEVELOPMENT MANAGER 250 mg Right Dorsogluteal-IM documented in this encounter Insurance Payer Benefit Plan / Subscriber ID Effective Phone Address Type Group Dates SAMMY BAZANINA xxxxxxxxx 2019-Pres [address] Medicaid HEALTHCARE - HEALTHCARE ent [id number] MANAGED MEDICAID [place], [place] documented as of this encounter
--- OUTSIDE RECORDS SUMMARY | 2019-07-10 22:22 | XMS REPORT | Summary of Care ---
:1995 Author Organization [facility] Address [address] [place] [id number] Care Team Providers Name Role Phone Shelby Taylor [facility] Primary Care Provider Luke Baker Insurance Hmo Reason for Visit Auth/Cert Status Reason Specialty Diagnoses / Procedures Referred By Contact Referred To Contact Obstetrics [facility] Delivery [address] [place] [address] [place] [address] Encounter Details Date Type Department Care Team Description 05/29/2019 Hospital Encounter [facility] Delivery Kim Rapp MD Unit [address] [place] [address] [place] [phone] Allergies No Known Allergiesdocumented as of this [...] Sign Reading Time Taken Comments Blood Pressure 127/69 05/29/2019 5:15 PM HAND WOOD SANDER Pulse 97 05/29/2019 5:45 PM [employer] WOOD SANDER Temperature 36.4 C (97.6 F) 05/29/2019 5:15 PM HAND WOOD SANDER Respiratory Rate 18 05/29/2019 5:15 PM HAND WOOD SANDER Oxygen Saturation 99% 05/29/2019 5:45 PM HAND WOOD SANDER Inhaled Oxygen Concentration - - Weight - - Height - - Body Mass Index - - documented in this encounter Discharge Instructions Kelly Reza RN - 05/29/2019Preterm Labor (36 weeks and before): 1. Drink at least 10-12 glasses of water daily. 2. When resting or sleeping, stay off your back as much as possible. Use pillows for extra support. 3. Be sure to empty your bladder frequently at least every 2 hours. 4. No sexual intercourse or orgasm until checking with your doctor. 5. No tampons or douching until checking with your doctor. 6. Return to Labor and Delivery if you have any of the followin. Tightening of the uterus (contractions) 6 or more per hour. 2. Periodlike cramping. 3. Low back pain. 4. Pelvic pressure or aching thighs. 5. Abdominal cramping with or without diarrhea. 6. Vaginal spotting or bleeding with any of the above symptoms. 7. Leaking of fluid from your vagina. Term Labor (37+ weeks): Return to Labor and Delivery/ Center if: 1. Your contractions become more regular, at least every 5-6 minutes apart for one hour after walking and drinking a large glass of water. 2. Your bag of water starts leaking or you have a gush of water from your vagina. 3. If you are not sure if your water has broken: 1. Go to the bathroom and empty your bladder. 2. Put on a pad. If it is wet within hour, you may be leaking from your bag of water. You should come to the hospital to be checked right away. 3. Note the color and odor of the fluid. 4. Your babys movements have decreased or if your baby is not moving. 5. You have vaginal bleeding as heavy as a period. Decreased Movement: 1. Your baby should move at least 10 times in 2 hrs. 2. Keep a record of your babys movements on the Kick Count sheet provided 3. If you feel your baby is not moving as much as usual, do the followin. Drink a large glass of water. 2. Make sure you have eaten a meal recently. 3. Lie on your left side and count the babys movements. 4. If you do not have at least 10 movements in 2 hours, you should be seen as soon as possible in Labor and Delivery, or call your clinic, whichever is closer. 5. IF YOUR BABYS MOVEMENTS ARE MUCH SLOWER THAN NORMAL, OR ABSENT, AND YOU ARE WORRIED, DO NOT WAIT AN ENTIRE DAY. IT IS BETTER TO BE REASSURED THAN TO FIND A PROBLEM WITH YOUR BABY THAT COULD HAVE BEEN AVOIDED! Urinary Tract Infections: 1. Drink plenty of fluids, at least 10-12 glasses of water daily. 2. Have your prescription filled today. 3. Take all of the medication prescribed, even if you are feeling better. 4. Empty your bladder often at least every 2 hours. 5. Be sure to wipe from front to back after urinating. 6. Call your clinic if: 1. You have a fever of 100.4 F by mouth after taking your temperature twice, 4 hours apart. 2. You see blood in your urine. 3. You are unable to urinate. 4. You have severe pain when you urinate. 7. Avoid alcohol, soft drinks and drinks with caffeine such as teas and coffee during this treatment. Bleedin. It is normal to have some red, pink, or brown spotting after a vaginal exam. 2. Colt, light red and brownish spotting is not unusual, especially later in the . 3. However, if heavy bleeding is present: a. Note the amount with the number of pads saturated. b. Note the color of the bleeding. c. Note any pain associated with the bleeding. d. Call Labor and Delivery or your clinic immediately. Fever: 1. Call your clinic if you have a fever of 100.4 F by mouth after taking your temperature twice, 4 hours apart. 2. Do not take any funo-jmb-qetlylp medications for an illness unless you have been instructed to doso by your physician or nurse. You should only take medicines on the list of safe medicines given to you at your clinic. Do not take more than the recommended doses. High Blood Pressure: Return to Labor and Delivery if you have: 1. Swelling in your face, puffiness around your eyes, more than slight swelling of your hands, or excessive or sudden swelling of your feet or ankles. 2. Sudden weight gain (more than 4 pounds in a week). 3. Throbbing headaches that wont go away, even after taking fwdz-izl-snhinjf medicines as instructed by your care provider. 4. Changes in vision, including blurry vision, a sensation of flashing lights or spots, or temporaryloss of vision. 5. Severe pain or tenderness in your upper stomach area. This may include nausea and vomiting. documented in this encounter Plan of Treatment Date Type Specialty Care Team Description 06/04/2019 Routine OB Satellites Shelby Taylor, Visit [facility] [address] [facility] [place] [address] [phone] 06/18/2019 Routine OB Satellites Risk, Visit Fxy-Dxxex-Jg/High 08/03/2019 Hospital Encounter Obstetrics QuiñonezShelia MD [address] [place] [address] [address] [place] [address] [phone] 08/03/2019 Surgery Surgery Faculty, Ob SECTION [address] [place] [address] Health Maintenance Due Date Last Done Comments [...] Results Not on filedocumented in this encounter Administered Medications Medication Order MAR Action Action Date Dose Rate Site betamethasone acet,sod phos Given 05/29/2019 6:01 PM 12 mg Left Thigh (CELESTONE SOLUSPAN) 6 mg/mL HAND WOOD SANDER injection 12 mg 12 mg, Intramuscular, ONCE, 1 dose, Sat05/29/19 at 1900, Routine documented in this encounter Insurance Payer Benefit Plan / Subscriber ID Effective Phone Address Type Group Dates CHRISTIANSON CHRISTIANSON xxxxxxxxx 2019-Pres [address] Medicaid HEALTHCARE - [place] [id number] MANAGED MEDICAID [place], [place] documented as of this encounter
--- OUTSIDE RECORDS SUMMARY | 2019-07-10 22:23 | XMS REPORT | Summary of Care ---
:[address] [facility] - Health Address [address] [place] [address] Care Team Providers Name Role Phone [facility] Provider Luke Baker Insurance Hmo Encounter Details Date Type Department Care Team Description 06/04/[address] [facility] Doctor Unassigned, [address] [facility] [place] [address] [address] [place] [address] Allergies No Known Allergiesdocumented as of this encounter (statuses as of 06/04/2019) Medications Medication Sig Dispensed Refills Start Date [...] as of this encounter (statuses as of 06/04/2019) Active Problems Problem Noted Date Pain of round ligament during 06/04/2019 Previous [...] as of this encounter (statuses as of 06/04/2019) Resolved Problems Problem Noted Date Resolved Date 39 weeks gestation of 05/29/2019 05/30/2019 uterine contractions in second trimester, antepartum 05/14/201905/28 Candidiasis of vulva and vagina 03/30/2019 05/28/2019 History of delivery 02/06/2019 05/08/2019 Overview: History of frederick inj documented as of this encounter (statuses as of 06/04/2019) Immunizations Name Administration Dates Next Due Influenza [...] Treatment Date Type Specialty Care Team Description 06/11/2019 Nurse Visit OB Satellites Visit, Elvin Nurse 06/18/2019 Routine OB Satellites Risk, Visit Dio-Fpxut-Sw/High 08/03/2019 Hospital Encounter Obstetrics Fiorella Ni MD [address] [place] [address] 08/03/2019 Surgery Surgery Faculty, Ob SECTION [address] [place] [address] Health Maintenance Due Date Last Done Comments [...] Procedure Name Priority Date/Time Associated Diagnosis Comments DME/SUPPLY JUSTIFICATION Routine 06/04/2019 12:01 AM [employer]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
--- OUTSIDE RECORDS SUMMARY | 2019-07-10 22:23 | XMS REPORT | Summary of Care ---
:1995 Author Organization [facility] Address [address] [place] [address] Care Team Providers Name Role Phone Shelby Taylor [facility] Primary Care Provider Luke Baker Insurance Hmo Reason for Visit Reason Comments Appointment Encounter Details Date Type Department Care Team Description 06/02/2019 [facility]phone [facility] [place], Appoint[facility] [address] [place] [phone] [address] [facility] [phone] [place] [address] Allergies No Known Allergiesdocumented as of this encounter (statuses as of 06/02/2019) Medications Medication Sig Dispensed Refills Start Date [...] for risk in 7 days. third trimester Hospital, Clinic, or Other Ordered Dose Route Frequency Start Date End Date Status Facility Administered Medication HYDROXYprogest(PF)(preg 250 mg IM QWEEKLY 03/05/2019 06/11/2019 Active presv) (ODESSA) 250 mg/mL (1 mL) injection 250 mg documented as of this encounter (statuses as of 06/02/2019) Active Problems Problem Noted Date Previous delivery [...] as of this encounter (statuses as of 06/02/2019) Resolved Problems Problem Noted Date Resolved Date 39 weeks gestation of 05/29/2019 05/30/2019 uterine contractions in second trimester, antepartum 05/14/201905/28 Candidiasis of vulva and vagina 03/30/2019 05/28/2019 History of delivery 02/06/2019 05/08/2019 Overview: History of odessa inj documented as of this encounter (statuses as of 06/02/2019) Immunizations Name Administration Dates Next Due Influenza [...] 06/04/2019 Routine OB Satellites Shelby Taylor, Visit [facility] [address] [place] [address] [phone] 06/18/2019 Routine OB Satellites Risk, Visit Rbj-Gzwdv-Xc/High 08/03/2019 Hospital Encounter Obstetrics Fiorella Ni MD [address] [place] [address] 08/03/2019 Surgery Surgery Faculty, Ob SECTION [address] [place] [address] Health Maintenance Due Date Last Done Comments [...] O BOX Medicaid HEALTHCARE - [place]ARE [place] [id number] MANAGED MEDICAID [place] documented as of this encounter
--- OUTSIDE RECORDS SUMMARY | 2019-07-10 22:23 | XMS REPORT | Summary of Care ---
:1995 Author Organization [facility] Address [address] [place] [address] Care Team Providers Name Role Phone Shelby Taylor [facility] Primary Care Provider Luke Baker Insurance Hmo Reason for Visit Reason Comments Care Encounter Details Date Type Department Care Team Description 06/04/2019 [facility] [place], Supervision of high risk in third trimester (Primary Dx); Visit Maurice Lopez [facility] Multiparity; [address] History of section; [facility] History of ; [phone] MARIA LUISA A Pain of round ligament during [phone] [place] [address] Allergies No Known Allergiesdocumented as [...] Medication HYDROXYprogest(PF)(preg 250 mg IM QWEEKLY 03/05/2019 06/04/2019 Ended presv) (FREDERICK) 250 mg/mL (1 mL) injection [...] Sign Reading Time Taken Comments Blood Pressure 113/70 06/04/2019 9:56 AM HAMMER REPAIRER Pulse 108 06/04/2019 9:56 AM HAMMER REPAIRER Temperature 36.5 C (97.7 F) 06/04/2019 9:56 AM HAMMER REPAIRER Respiratory Rate 18 06/04/2019 9:56 AM HAMMER REPAIRER Oxygen Saturation - - Inhaled Oxygen Concentration - - Weight 57.7 kg (127 lb 3 oz) 06/04/2019 9:56 AM HAMMER REPAIRER Height 154.9 cm (5' 1") 06/04/2019 9:56 AM HAMMER REPAIRER Body Mass Index 24.03 06/04/2019 9:56 AM HAMMER REPAIRER documented in this encounter Progress Notes Zuleyma Degroot RN - 06/04/2019 9:30 AM CST24 year old female in clinic today for [place] progesterone injection. 250 mg administered IM to leftgluteus- see MAR entry. Witnessed by Javier Mir. Medication supplied by outside pharmacy. Pt tolerated injection well, warning signs discussed with her at this time. Pt instructed to RTC 1 wk for next dose or PRN. Pt verbalized understanding. ZULEYMA DEGROOT RN 06/04/2019 10:26 AM Shelby Dennison WHCNP - 06/04/2019 9:30 AM CST Chief complaint: Chief Complaint Patient presents with Care HPI CC: Follow Up Visit Natanael Dyson is a 24 year old, , /White female. Patient's last menstrual period was11/02/2018. She is 30w4d with an intrauterine . Her estimated date of delivery is 08/09/2019, by Last Menstrual Period. She has no complaints today. She reports round ligament pain in her pelvis area which started off and on for the past couple of weeks, she denies trying anything otc for relief. She reports +FM and denies contractions, LOF and bleeding today. Histories OB History Para Term AB Living 4 3 1 2 3 SAB TAB Ectopic Multiple Live Births 3 # Outcome Date GA Lbr Ancelmo/2nd Weight Sex Delivery Anes PTL Lv 4 Current 3 01/09/16 31w0d 5 lb 6 oz (2.438 kg) M VAGINAL LORI Y ALEJANDRO Comments: Declined Chum[place]la in this 2 Term 02/01/15 39w0d 5 [...] file Gets together: Not on file Attends uatsdin service: Not on file Active member of [...] Last intercourse: 01/16/2019 Labs No new labs and Admission on 05/30/2019, Discharged on 05/31/2019 Component Date Value C. trachomatis Nucleic A* 05/30/2019 Negative N. gonorrhoeae Nucleic A* 05/30/2019 Negative APPEARANCE 05/30/2019 Hazy* COLOR 05/30/2019 Yellow PH 05/30/2019 7.0 SP GRAVITY 05/30/2019 1.020 GLU U QUAL 05/30/2019 Normal BLOOD 05/30/2019 Negative KETONES 05/30/2019 Negative PROTEIN 05/30/2019 Negative UROBILIN 05/30/2019 Normal BILIRUBIN 05/30/2019 Negative NITRITE 05/30/2019 Negative LEUK ANJELICA 05/30/2019 Negative RBC/HPF 05/30/2019 1 WBC/HPF 05/30/2019 2 BACTERIA 05/30/2019 Negative MUCOUS 05/30/2019 Slight* AMORPHOUS 05/30/2019 Few* SQ EPITH 05/30/2019 2 HBsAg 05/30/2019 Negative HBsAg Semi-Quantitative 05/30/2019 0.06 Syphilis IgG/IgM 05/30/2019 Non-reactive ABO & RH 05/30/2019 A POSITIVE IAT 05/30/2019 Negative Admission on 05/28/2019, Discharged on 05/29/2019 Component Date Value Wet Prep 05/28/2019 No Trichomonas vaginalis present Wet Prep 05/28/2019 No Yeast Wet Prep 05/28/2019 Few Clue cells present Wet Prep 05/28/2019 Moderate Epithelial cells Wet Prep 05/28/2019 Numerous WBC per high-power field Wet Prep 05/28/2019 Few Red blood cells Wet Prep 05/28/2019 Numerous Organisms seen URINE CULTURE 05/28/2019 10,000 - 100,000 CFU/mL mixed aerobic organisms - suggests endogenous microbial contamination Fern Test 05/28/2019 Negative Routine Visit on 05/28/2019 Component Date Value POCT U SP GRAV 05/28/2019 . POCT PH U 05/28/2019 . POCT U LEUK EST 05/28/2019 . POCT U NIT 05/28/2019 . POCT U PROT 05/28/2019 trace POCT U GLU 05/28/2019 neg POCT U KETONE 05/28/2019 . POCT U UROBILI 05/28/2019 . POCT U BILI 05/28/2019 . POCT U BLD 05/28/2019 . Routine Visit on 05/21/2019 Component Date Value POCT U SP GRAV 05/21/2019 . POCT PH U 05/21/2019 7 POCT U LEUK EST 05/21/2019 Trace POCT U NIT 05/21/2019 Neg POCT U PROT 05/21/2019 Trace POCT U GLU 05/21/2019 Neg POCT U KETONE 05/21/2019 None POCT U UROBILI 05/21/2019 . POCT U BILI 05/21/2019 . POCT U BLD 05/21/2019 Neg HIV 1/2 Ag-Ab with Reflex 05/21/2019 Negative HIV Semi-quantitative 05/21/2019 0.07 Syphilis IgG/IgM 05/21/2019 Non-reactive Admission on 05/13/2019, Discharged on 05/14/2019 Component Date Value C. trachomatis Nucleic A* 05/14/2019 Negative N. gonorrhoeae Nucleic A* 05/14/2019 Negative Wet Prep 05/14/2019 No Trichomonas vaginalis present Wet Prep 05/14/2019 Few Clue cells present Wet Prep 05/14/2019 Few Yeast with pseudohyphae Wet Prep 05/14/2019 Few WBC per high-power field Wet Prep 05/14/2019 Few Red blood cells Wet Prep 05/14/2019 Moderate Organisms seen APPEARANCE 05/14/2019 Clear COLOR 05/14/2019 Yellow PH 05/14/2019 7.0 SP GRAVITY 05/14/2019 1.010 GLU U QUAL 05/14/2019 Normal BLOOD 05/14/2019 1+* KETONES 05/14/2019 Negative PROTEIN 05/14/2019 Negative UROBILIN 05/14/2019 Normal BILIRUBIN 05/14/2019 Negative NITRITE 05/14/2019 Negative LEUK ANJELICA 05/14/2019 250/uL* RBC/HPF 05/14/2019 1 WBC/HPF 05/14/2019 2 BACTERIA 05/14/2019 Few* MUCOUS 05/14/2019 Slight* SQ EPITH 05/14/2019 2 YEAST BUD 05/14/2019 1 URINE CULTURE 05/14/2019 < 10,000 CFU/mL mixed aerobic organisms - suggests endogenous microbial contamination Group B Streptococcus by* 05/14/2019 Negative Routine Visit on 05/08/2019 Component Date Value GLUC 1 HR 05/08/2019 125 WBC 05/08/2019 10.74 RBC 05/08/2019 3.43* HGB 05/08/2019 10.2* HCT 05/08/2019 30.9* MCV 05/08/2019 90.1 MCH 05/08/2019 29.7 MCHC 05/08/2019 33.0 RDW-SD 05/08/2019 45.4 RDW-CV 05/08/2019 13.7 PLT 05/08/2019 267 MPV 05/08/2019 10.5 NRBC/100 WBC 05/08/2019 0.0 NRBC x10^3 05/08/2019 <0.01 GRAN MAT (NEUT) % 05/08/2019 69.1 IMM GRAN % 05/08/2019 0.90 LYMPH % 05/08/2019 21.1 MONO % 05/08/2019 4.5 EOS % 05/08/2019 4.0 BASO % 05/08/2019 0.4 GRAN MAT x10^3(ANC) 05/08/2019 7.42* IMM GRAN x10^3 05/08/2019 0.10* LYMPH x10^3 05/08/2019 2.27 MONO x10^3 05/08/2019 0.48 EOS x10^3 05/08/2019 0.43* BASO x10^3 05/08/2019 0.04 POCT U SP GRAV 05/08/2019 . POCT PH U 05/08/2019 . POCT U LEUK EST 05/08/2019 . POCT U NIT 05/08/2019 . POCT U PROT 05/08/2019 trace POCT U GLU 05/08/2019 negative POCT U KETONE 05/08/2019 . POCT U UROBILI 05/08/2019 . POCT U BILI 05/08/2019 . POCT U BLD 05/08/2019 . Routine Visit on 04/02/2019 Component Date Value POCT U SP GRAV 04/02/2019 . POCT PH U 04/02/2019 7 POCT U LEUK EST 04/02/2019 2+ POCT U NIT 04/02/2019 negative POCT U PROT 04/02/2019 trace POCT U GLU 04/02/2019 negative POCT U KETONE 04/02/2019 negative POCT U UROBILI 04/02/2019 . POCT U BILI 04/02/2019 . POCT U BLD 04/02/2019 negative Routine Visit on 03/26/2019 Component Date Value POCT U PROT 03/26/2019 Trace POCT U GLU 03/26/2019 Neg URINE CULTURE 03/26/2019 > 100,000 CFU/mL mixed aerobic organisms - suggests endogenous microbial contamination Trichomonas vaginalis 03/26/2019 Negative Gardnerella vaginalis 03/26/2019 Negative Christina species 03/26/2019 Positive* Routine Visit on 03/06/2019 Component Date Value POCT U SP GRAV 03/06/2019 . POCT PH U 03/06/2019 . POCT U LEUK EST 03/06/2019 . POCT U NIT 03/06/2019 . POCT U PROT 03/06/2019 Trace POCT U GLU 03/06/2019 Neg POCT U KETONE 03/06/2019 . POCT U UROBILI 03/06/2019 . POCT U BILI 03/06/2019 . POCT U BLD 03/06/2019 . RACE 03/06/2019 WEIGHT 03/06/2019 115.125 GEST. AGE 1003/06/2019 17 5 INS. DEP 03/06/2019 No LMP 03/06/2019 [id number] METHOD 03/06/2019 LMP MULT GEST 03/06/2019 No NTD HX 03/06/2019 No INITAL OR REPEAT 03/06/2019 Initial Testing SMOKER 03/06/2019 No INHIBIN 03/06/2019 168.7 AFP-MS 03/06/2019 60.0 ESTRIOL 03/06/2019 1.00 BHCG DOWNS 03/06/2019 83,655.0 AFP-MS MoM 03/06/2019 1.37 BHCG MoM 03/06/2019 2.59 INHIBIN MoM 03/06/2019 1.06 E3 MoM 03/06/2019 0.70 EQ AGE RSK 03/06/2019 < 15.0 DS APR 03/06/2019 1:1080 DS INTERP 03/06/2019 See Note DS RSK 03/06/2019 1:5860 DS SCRN 03/06/2019 Negative TRISOMY 18 03/06/2019 See Note ES RSK 03/06/2019 < 1:88621 ES SCRN 03/06/2019 Negative OSB INTERP 03/06/2019 See Note OSB RSK 03/06/2019 1:3820 OSB SCRN 03/06/2019 Negative INTERPRETATION 03/06/2019 N Radiology No new radiology. Allergies Natanael has No Known Allergies. Medications Natanael has a current medication list which includes the following prescription(s) : metronidazole, albuterol, calcium carbonate, promethazine, bupropion sr, buspirone, cyclobenzaprine, ascorbic acid (vitamin c), ferrous sulfate, famotidine, hydroxyprogest(pf)(preg presv), and pnv 67-iron ps-folate no.1-dha, and the following Facility-Administered Medications: hydroxyprogest(pf)(preg presv). Review of Systems Constitutional: Negative. HENT: Negative. Eyes: Negative. Respiratory: Negative. Breasts: Negative. Cardiovascular: Negative. Gastrointestinal: Negative. Genitourinary: Negative. Musculoskeletal: Negative. Skin: Negative. Neurological: Negative. Psychiatric/Behavioral: Negative. Endocrine: Endocrine negative BP 113/70 | Pulse 108 | Temp 36.5 C (97.7 F) (Oral) | Resp 18 | Ht 5' 1 " (1.549 m) | Wt 127lb 3 oz (57.7 kg) | LMP 11/02/2018 | BMI 24.03 kg/m Pregravid BMI: Could not be calculated Physical Exam Vitals reviewed. Constitutional: She is oriented to person, place, and time. She appears well- developed and well-nourished. Cardiovascular: Regular rate and rhythm. No peripheral edema present. Pulmonary/Chest: Normal inspiratory effort. Abdominal: Abdomen is soft. No mass palpated. No tenderness present. There is no hepatosplenomegaly,splenomegaly or hepatomegaly. There is no rigidity and no guarding. No hernia palpated or inspected. Neuro/Psychiatric: She has a normal mood and affect. She is oriented to person, place, and time. Skin: Skin normal. PHYSICAL: General Exam: Neurological: Normal Abdomen: Normal gravid Extremities: Normal Pelvic Exam: Uterus: 31 Weeks Assessment/Plan Return to clinic in 2 weeks. Return in 1 week for frederick Denies zika virus risk, signs and symptoms such as fever,rash,joint pain, conjunctivitis (red eyes),muscle pain, headaches; outside [place] travel to areas affected by zika, and FOB exposure to zika. Educated on use of mosquito repellent. Supervision of high risk in third trimester (primary encounter diagnosis) Multiparity History of section History of Comment: routine Plan: POCT URINALYSIS W/O SPECIFIC GRAVITY Pain of round ligament during Comment: reports Plan: comfort measures suggested patient verbalized understanding This visit did not involve counseling and coordination that comprised more than 50% of the visit time. EARNEST Nova 06/04/2019 10:20 AM documented in this encounter Plan of Treatment Date Type Specialty Care Team Description 06/18/2019 Routine OB Satellites Risk, Visit Sew-Egbxj-Mm/High 08/03/2019 Hospital Encounter Obstetrics Fiorella Ni MD [address] [place] [address] 08/03/2019 Surgery Surgery Faculty, Ob SECTION [address] [place] [address] Health Maintenance Due Date Last Done Comments [...] Priority Date/Time Associated Diagnosis Comments POCT URINALYSIS W/O Routine 06/04/2019 10:02 Supervision of high Results for this SPECIFIC GRAVITY AM HAMMER REPAIRER risk in procedure are in third trimester the results section. documented in this encounter Results POCT URINALYSIS W/O SPECIFIC GRAVITY (06/04/2019 10:02 AM HAMMER REPAIRER) POCT PH U 7 5 - 8 mg/dl POCT U LEUK EST neg Negative - Negative POCT U NIT neg Negative - Negative POCT U PROT trace Negative - Negative POCT U GLU neg Negative - Negative POCT U KETONE neg Negative - Negative POCT U BLD neg Negative - Negative Specimen Urine - URINE, CLEAN CATCH documented in this encounter Visit Diagnoses Diagnosis Supervision of high risk in third trimester - Primary Unspecified high-risk Multiparity History of section Other postprocedural status History of Previous delivery, delivered, with or without mention of antepartum condition Pain of round ligament during documented in this encounter Administered Medications Medication Order MAR Action Action Date Dose Rate Site HYDROXYprogest(PF)(preg Given 06/04/2019 10:27 AM 250 mg Right presv) (FREDERICK) 250 HAMMER REPAIRER Dorsogluteal-IM mg/mL (1 mL) injection 250 mg 250 mg, Intramuscular, QWEEKLY, 14 doses, First dose on Kathie 03/05/19 at 1415, Last dose on Kathie 06/04/19 at 1415, Routine Given 05/28/2019 9:41 AM HAMMER REPAIRER 250 mg Right Dorsogluteal-IM Given 05/21/2019 10:49 AM HAMMER REPAIRER 250 mg Left Dorsogluteal-IM documented in this encounter Insurance Payer Benefit Plan / Subscriber ID Effective Phone Address Type Group Dates SAMMY CHRISTIANSON xxxxxxxxx 2019-Pres [address] Medicaid HEALTHCARE - [place]CARE [place] [id number] MANAGED MEDICAID [place], [place] documented as of this encounter
--- OUTSIDE RECORDS SUMMARY | 2019-07-10 22:23 | XMS REPORT | Summary of Care ---
:1995 Author Organization [facility] - Health Address [address] [place] [address] Care Team Providers Name Role Phone Shelby [facility] Primary Care Provider Luke Baker Insurance Hmo Encounter Details Date Type Department Care Team Description 05/30/2019 Orders Only [facility] Doctor Unassigned, No [address] [facility] [place] [address] [address] [place] [address] Allergies No Known Allergiesdocumented as of this encounter (statuses as of 06/05/2019) Medications Medication Sig Dispensed Refills Start Date [...] as of this encounter (statuses as of 06/05/2019) Active Problems Problem Noted Date Pain of [...] as of this encounter (statuses as of 06/05/2019) Resolved Problems Problem Noted Date Resolved Date 39 weeks gestation of 05/29/2019 05/30/2019 uterine contractions in second trimester, antepartum 05/14/201905/28 Candidiasis of vulva and vagina 03/30/2019 05/28/2019 History of delivery 02/06/2019 05/08/2019 Overview: History of frederick inj documented as of this encounter (statuses as of 06/05/2019) Immunizations Name Administration Dates Next Due Influenza [...] Nurse 06/18/2019 Routine OB Satellites Risk, Visit Ipe-Pirsv-Xj/High 08/03/2019 Hospital Encounter Obstetrics Fiorella Ni MD [address] [place] [address] 08/03/2019 Surgery Surgery Faculty, Ob SECTION [address] [place] [address] Health Maintenance Due Date Last Done Comments [...] Procedure Name Priority Date/Time Associated Diagnosis Comments AUTHORIZATION FOR RELEASE Routine 05/30/2019 12:01 AM 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
--- OUTSIDE RECORDS SUMMARY | 2019-07-10 22:23 | XMS REPORT | Summary of Care ---
:1995 Author Organization [facility] Address [address] [place] [address] Care Team Providers Name Role Phone Shelby [facility] Primary Care Provider Luke Baker Insurance Hmo Encounter Details Date Type Department Care Team Description 06/03/2019 [facility], [facility] [address] [facility] [address] [place] [address] [facility] [phone] [place] [address] Allergies No Known Allergiesdocumented as of this encounter (statuses as of 06/03/2019) Medications Medication Sig Dispensed Refills Start Date [...] as of this encounter (statuses as of 06/03/2019) Active Problems Problem Noted Date Previous delivery [...] as of this encounter (statuses as of 06/03/2019) Resolved Problems Problem Noted Date Resolved Date 39 weeks gestation of 05/29/2019 05/30/2019 uterine contractions in second trimester, antepartum 05/14/201905/28 Candidiasis of vulva and vagina 03/30/2019 05/28/2019 History of delivery 02/06/2019 05/08/2019 Overview: History of odessa inj documented as of this encounter (statuses as of 06/03/2019) Immunizations Name Administration Dates Next Due Influenza [...] 06/04/2019 Routine OB Satellites Shelby Taylor, Visit [facility] [address] [place] [address] [phone] 06/18/2019 Routine OB Satellites Risk, Visit Yav-Fajkl-Zb/High 08/03/2019 Hospital Encounter Obstetrics Fiorella Ni MD [address] [place] [address] 08/03/2019 Surgery Surgery Faculty, Ob SECTION [address] [place] [address] Health Maintenance Due Date Last Done Comments [...] Alisson RYAN Medicaid HEALTHCARE - [place]CARE [place] [id number] MANAGED MEDICAID [place] documented as of this encounter
--- OUTSIDE RECORDS SUMMARY | 2019-07-10 22:23 | XMS REPORT | Summary of Care ---
:1995 Author Organization [facility] Address [address] [place] [address] Care Team Providers Name Role Phone Shelby Taylor [facility] Primary Care Provider Luke Baker Insurance Hmo Reason for Visit Reason Comments Refill Request Encounter Details Date Type Department Care Team Description 06/01/2019 Refill [facility] Lelsie Matthews, Refill Request [address] [place] [address] [address] [phone] [place] [address] Allergies No Known Allergiesdocumented as [...] Routine OB Satellites Shelby Taylor, Visit [facility] [address] [place] [address] [phone] 06/18/2019 Routine OB Satellites Risk, Visit Mgu-Bwoup-Vm/High 08/03/2019 Hospital Encounter Obstetrics Fiorella Ni MD [address] [place] [address] 08/03/2019 Surgery Surgery Faculty, Ob SECTION [address] [place] [address] Health Maintenance Due Date Last Done Comments [...] Address Type Group Dates SAMMY CHRISTIANSON xxxxxxxxx 2019- [address] [place] Medicaid HEALTHCARE - HEALTHCARE [place] [id number] MANAGED MEDICAID [place], [place] documented as of this encounter
--- OUTSIDE RECORDS SUMMARY | 2019-07-10 22:23 | XMS REPORT | Summary of Care ---
:[address] [facility] - Health Address [address] [place] [address] Care Team Providers Name Role Phone Shelby [facility] Primary Care Provider Luke Baker Insurance Hmo Encounter Details Date Type Department Care Team Description 06/04/[address] [facility] Doctor Unassigned, No 301 [facility] [place] [address] [address] [place] [address] Allergies No Known Allergiesdocumented as of this encounter (statuses as of 06/06/2019) Medications Medication Sig Dispensed Refills Start Date End Date Status PNV 67-iron ps-folate Take 1 Each by 30 capsule 9 02/06/2019 Active no.1-dha (VITAFOL mouth daily. ULTRA) 29 mg iron- 1 mg-200 mg CapIndications: Supervision of high risk , antepartum HYDROXYprogest,PF,,pr 1 mL by 22 mL 0 02/09/2019 Active eg presv, 250 mg/mL Intramuscular 0 (1 mL) route weekly for injectionIndications: 22 doses. History of delivery famotidine 40 mg Take 1 tablet by 30 tablet 3 05/08/2019 Active tabletIndications: mouth daily. Gastroesophageal reflux in ferrous sulfate 325 Take 1 tablet by 120 tablet 6 05/11/2019 Active mg (65 mg iron) mouth 2 (two) tabletIndications: times daily. Anemia of mother in , antepartum ascorbic acid, Take 1 tablet by 90 tablet 6 05/11/2019 Active vitamin C, 500 mg mouth 3 (three) tabletIndications: [...] calcium (1,250 mg) mouth 3 (three) tabletIndications: times daily with Leg cramps in meals. ALBUTEROL 90 INHALE 2 [...] tablet 3 05/21/2019 Active (WELLBUTRIN SR) 150 mouth 2 (two) mg SR times daily. tabletIndications: Depression affecting in third trimester, antepartum busPIRone 10 mg Take 1 tablet by 90 tablet 3 05/21/2019 Active tabletIndications: mouth 3 (three) Anxiety during times daily. in third trimester, antepartum metroNIDAZOLE 500 mg Take 1 tablet by 14 tablet 0 05/29/2019 tabletIndications: mouth every 12 0 Supervision of high (twelve) hours for risk in 7 days. third trimester documented as of this encounter (statuses as of 06/06/2019) Active Problems Problem Noted Date Pain of [...] as of this encounter (statuses as of 06/06/2019) Resolved Problems Problem Noted Date Resolved Date 39 weeks gestation of 05/29/2019 05/30/2019 uterine contractions in second trimester, antepartum 05/14/201905/28 Candidiasis of vulva and vagina 03/30/2019 05/28/2019 History of delivery 02/06/2019 05/08/2019 Overview: History of frederick inj documented as of this encounter (statuses as of 06/06/2019) Immunizations Name Administration Dates Next Due Influenza [...] Nurse 06/18/2019 Routine OB Satellites Risk, Visit Fwi-Qaewj-Gq/High 08/03/2019 Hospital Encounter Obstetrics Fiorella Ni MD [address] [place] [address] 08/03/2019 Surgery Surgery Faculty, Ob SECTION [address] [place] [address] Health Maintenance Due Date Last Done Comments [...] Comments DME/SUPPLY JUSTIFICATION Routine 06/04/2019 12:01 AM CHAR PULLER documented in this encounter Results Not on filedocumented in this encounter Insurance Payer Benefit Plan / Subscriber ID Effective Phone Address Type Group Dates SAMMY CHRISTIANSON xxxxxxxxx 2019-Pres [address] Medicaid HEALTHCARE - [place]CARE [place] [id number] MANAGED MEDICAID [place], [place] documented as of this encounter
--- OUTSIDE RECORDS SUMMARY | 2019-07-10 22:24 | XMS REPORT | Summary of Care ---
:1995 Author Organization [facility] Address [address] [place] [address] Care Team Providers Name Role Phone Shelby [facility] Primary Care Provider Luke Baker Insurance Hmo Reason for Visit Reason Comments Rx Concern/Question famotidine 40 mg tablet Encounter Details Date Type Department Care Team Description 06/15/2019 [facility], Rx Concern/ Question [place] MANAGER BRAND (famotidine 40 mg [address] tablet) [facility] [address] [place], [place] [address] Allergies No Known Allergiesdocumented as of this encounter (statuses as of 06/15/2019) Medications Medication Sig Dispensed Refills Start Date [...] as of this encounter (statuses as of 06/15/2019) Active Problems Problem Noted Date Pain of [...] as of this encounter (statuses as of 06/15/2019) Resolved Problems Problem Noted Date Resolved Date 39 weeks gestation of 05/29/2019 05/30/2019 uterine contractions in second trimester, antepartum 05/14/201905/28 Candidiasis of vulva and vagina 03/30/2019 05/28/2019 History of delivery 02/06/2019 05/08/2019 Overview: History of frederick inj documented as of this encounter (statuses as of 06/15/2019) Immunizations Name Administration Dates Next Due Influenza [...] Description 06/18/2019 Routine OB Satellites Risk, Visit Kib-Oyecz-Mi/High 06/22/2019 Nurse Visit OB Satellites Visit, Elvin Nurse 08/03/2019 Hospital Encounter Obstetrics Fiorella Ni MD [address] [place] [address] 08/03/2019 Surgery Surgery Faculty, Ob SECTION [address] [place] [address] Health Maintenance Due Date Last Done Comments [...] Dates SAMMY CHRISTIANSON xxxxxxxxx 2019- [address] Medicaid HEALTHCARE - [place]CARE [place] [id number] MANAGED MEDICAID [place] documented as of this encounter
--- OUTSIDE RECORDS SUMMARY | 2019-07-10 22:24 | XMS REPORT | Summary of Care ---
:1995 Author Organization [facility] Address [address] [place] [address] 41264 Care Team Providers Name Role Phone [facility] Provider Luke Baker Insurance Hmo Encounter Details Date Type Department Care Team Description 06/12/[address] [facility], [facility] 110[address] [facility] 1108 [place] [address] [facility] [phone] [place] [address] Allergies No Known Allergiesdocumented as [...] Description 06/18/2019 Routine OB Satellites Risk, Visit Wsf-Bgxho-Au/High 06/22/2019 Nurse Visit OB Satellites Visit, Elvin Nurse 08/03/2019 Hospital Encounter Obstetrics Fiorella Ni MD [address] [place] [address] 08/03/2019 Surgery Surgery Faculty, Ob SECTION [address] [place] [address] Health Maintenance Due Date Last Done Comments [...] O BOX Medicaid HEALTHCARE [place]ARE [place] [id number] MANAGED MEDICAID [place] documented as of this encounter
--- OUTSIDE RECORDS SUMMARY | 2019-07-10 22:24 | XMS REPORT | Summary of Care ---
:1995 Author Organization [facility] Address [address] [place] [address] Care Team Providers Name Role Phone Shelby Taylor BETTY Primary Care Provider Luke Baker Insurance Hmo Reason for Visit Reason Comments Rx Concern/Question pepcid 40mg unavailable please change to 20mg Encounter Details Date Type Department Care Team Description 06/15/2019 Telephone [facility]- Shelby Taylor Rx Concern/ Question EARNEST Aguilar (pepcid 40mg [address] [place] [address] unavailable please [place], [place] MARIA LUISA A change to 20mg) [phone] [place], [place] [id number] Allergies No Known Allergiesdocumented as of this [...] Description 06/18/2019 Routine OB Satellites Risk, Visit Whb-Wvrke-Yh/High 06/22/2019 Nurse Visit OB Satellites Visit, Doracarol Nurse 08/03/2019 Hospital Encounter Obstetrics Fiorella Ni MD [address] [place] [address] 08/03/2019 Surgery Surgery Faculty, Ob SECTION [address] [place] [address] Health Maintenance Due Date Last Done Comments [...] Alisson RYAN Medicaid HEALTHCARE - [place]CARE [place] [id number] MANAGED MEDICAID [place] documented as of this encounter
--- OUTSIDE RECORDS SUMMARY | 2019-07-10 22:24 | XMS REPORT | Summary of Care ---
:1995 Author Organization [facility] Address [address] [place] [address] Care Team Providers Name Role Phone Shelby Taylor BETTY Primary Care Provider Luke Baker Insurance Hmo Reason for Visit Reason Comments Rx Concern/Question Encounter Details Date Type Department Care Team Description 06/12/[address] Juana Quiñonez FNP Rx Concern/Question [place] [address] [place] [address] [place] [id number] Allergies No Known Allergiesdocumented as of this [...] Treatment Date Type Specialty Care Team Description 06/15/2019 Nurse Visit OB Satellites Visit, Elvin Nurse 06/18/2019 Routine OB Satellites Risk, Visit Bsk-Kkzps-Wr/High 08/03/2019 Hospital Encounter Obstetrics Fiorella Ni MD [address] [place] [address] 08/03/2019 Surgery Surgery Faculty, Ob SECTION [address] [place] [address] Health Maintenance Due Date Last Done Comments [...] O BOX Medicaid HEALTHCARE - [place]CARE [place] [id number] MANAGED MEDICAID [place] documented as of this encounter
--- OUTSIDE RECORDS SUMMARY | 2019-07-10 22:24 | XMS REPORT | Summary of Care ---
:1995 Author Organization [facility] Address [address] [place] [address] 18[address] Care Team Providers Name Role Phone Shelby Taylor [facility] Primary Care Provider Luke Baker Insurance Hmo Reason for Visit Reason Comments IMMUNIZATION Encounter Details Date Type Department Care Team Description 06/15/2019 Nurse Visit [facility]- Shelby Taylor, [facility] 110[address] [place] [address] History of [place] Visit, [facility] Nurse labor (Primary Dx) 1108 [place] [address] Allergies No Known Allergiesdocumented as of [...] Sign Reading Time Taken Comments Blood Pressure 116/77 06/15/2019 9:50 AM GEOLOGICAL SAMPLE TESTER Pulse 89 06/15/2019 9:50 AM GEOLOGICAL SAMPLE TESTER Temperature 36.8 C (98.2 F) 06/15/2019 9:50 AM GEOLOGICAL SAMPLE TESTER Respiratory Rate 16 06/15/2019 9:50 AM GEOLOGICAL SAMPLE TESTER Oxygen Saturation - - Inhaled Oxygen Concentration - - Weight 58.5 kg (129 lb 1 oz) 06/15/2019 9:50 AM GEOLOGICAL SAMPLE TESTER Height 154.9 cm (5' 1") 06/15/2019 9:50 AM GEOLOGICAL SAMPLE TESTER Body Mass Index 24.39 06/15/2019 9:50 AM GEOLOGICAL SAMPLE TESTER documented in this encounter Patient Instructions Patient InstructionsAngelique Mir LVN - 06/15/2019 9:30 AM GEOLOGICAL SAMPLE TESTER Hydroxyprogesterone solution for injection Brand Name: Frederick What is this medicine? HYDROXYPROGESTERONE (santino drox ee proe NARCISO ter one) is a female hormone. This medicine is used in women who are and who have delivered a baby too early () in the past. It helps lower therisk of having a baby again. This medicine is also used to treat irregular menstrual bleeding or a lack of menstrual bleeding in women. In some cases, it may be used to treat endometrial cancer. How should I use this medicine? This medicine is for injection into a muscle or under the skin. It is given by a health health care liaison in a hospital or clinic setting. Talk to your network coordinator regarding the use of this medicine in children. Special care may be needed. What side effects may I notice from receiving this medicine? Side effects that you should report to your doctor or health health care liaison as soon as possible: allergic reactions like skin rash, itching or hives, swelling of the face, lips, or tongue breathing problems depressed mood increase in blood pressure increased hunger or thirst increased urination signs and symptoms of a blood clot such as breathing problems; changes in vision; chest pain; severe, sudden headache; pain, swelling, warmth in the leg; trouble speaking; sudden numbness or weakness of the face, arm or leg unusually weak or tired unusual vaginal bleeding yellowing of the eyes or skin Side effects that usually do not require medical attention (report to your doctor or health health care liaison if they continue or are bothersome): diarrhea fluid retention and swelling nausea pain, redness, or irritation at site where injected What may interact with this medicine? Significant interactions are not expected. What if I miss a dose? It is important not to miss your dose. Call your doctor or health health care liaison if you are unable to keep an appointment. Where should I keep my medicine? This drug is given in a hospital or clinic and will not be stored at home. What should I tell my health care provider before I take this medicine? They need to know if you have any of these conditions: breast, cervical, uterine, or vaginal cancer depression diabetes or prediabetes heart disease high blood pressure history of blood clots kidney disease liver disease lung or breathing disease, like asthma migraine headaches seizures vaginal bleeding an unusual or allergic reaction to hydroxyprogesterone, other hormones, castor oil, other medicines, foods, dyes, or preservatives breast-feeding What should I watch for while using this medicine? Your condition will be monitored carefully while you are receiving this medicine. NOTE:This sheet is a summary. It may not cover all possible information. If you have questions aboutthis medicine, talk to your doctor, pharmacist, or health care provider. Copyright 2018 [employer] OGICAL SAMPLE TESTER documented in this encounter Progress Notes Zuleyma Degroot RN - 06/15/2019 9:[facility] Advised patient had last injection today and decided to continue them. Sarahy advised refill would be submitted. ZULEYMA DEGROOT RN 06/15/2019 10:09 AM documented in this encounter Plan of Treatment Date Type Specialty Care Team Description 06/18/2019 Routine OB Satellites Risk, Visit Pff-Jvcot-Cy/High 06/22/2019 Nurse Visit [facility] 08/[facility]2019 Hospital Encounter Obstetrics Fiorella Ni MD [address] [place] [address] 08/03/2019 Surgery Surgery Faculty, Ob SECTION [address] [place] [address] Health Maintenance Due Date Last Done Comments [...] filedocumented in this encounter Visit Diagnoses Diagnosis History of labor - Primary Personal history of pre-term labor documented in this encounter Administered Medications Medication Order MAR Action Action Date Dose Rate Site HYDROXYprogest(PF)(preg Given 06/15/2019 9:59 AM 250 mg Right presv) (FREDERICK) 250 GEOLOGICAL SAMPLE TESTER Dorsogluteal-IM mg/mL (1 mL) injection 250 mg 250 mg, Intramuscular, QWEEKLY, 14 doses, First dose on Kathie 03/05/19 at 1415, Last dose on Kathie 06/04/19 at 1415, Routine Given 06/04/2019 10:27 AM GEOLOGICAL SAMPLE TESTER 250 mg Right Dorsogluteal-IM Given 05/28/2019 9:41 AM GEOLOGICAL SAMPLE TESTER 250 mg Right Dorsogluteal-IM documented in this encounter Insurance Payer Benefit Plan / Subscriber ID Effective Phone Address Type Group Dates SAMMY CHRISTIANSON xxxxxxxxx 2019-Pres [address] Medicaid HEALTHCARE - [place]CARE [place] [id number] MANAGED MEDICAID [place], [place] documented as of this encounter
--- OUTSIDE RECORDS SUMMARY | 2019-07-10 22:24 | XMS REPORT | Summary of Care ---
:1995 Author Organization [facility] Address [address] [place] [address] 707[address] Care Team Providers Name Role Phone Shelby [facility] Primary Care Provider Luke Baker Insurance Hmo Reason for Visit Reason Comments Headache Auth/Cert Status Reason Specialty Diagnoses / Referred By Referred To Procedures Contact Contact Emergency Medicine Diagnoses 32 WKS PREG,HEAD PRESSURE,NOSE BLEED [facility] Emergency Dept [address] [place] [address] [place] [address] Encounter Details Date Type Department Care Team Description 06/13/2019 Emergency ADC-Emergency Lewis Ibrahim, Headache disorder Department (Primary Dx) [address] [place] [address] [place] [id number] [id number] [place], [place] [phone] Allergies No Known Allergiesdocumented as of this encounter (statuses as of 06/13/2019) Medications Medication Sig Dispensed Refills Start Date [...] as of this encounter (statuses as of 06/13/2019) Active Problems Problem Noted Date Pain of [...] as of this encounter (statuses as of 06/13/2019) Resolved Problems Problem Noted Date Resolved Date 39 weeks gestation of 05/29/2019 05/30/2019 uterine contractions in second trimester, antepartum 05/14/201905/28 Candidiasis of vulva and vagina 03/30/2019 05/28/2019 History of delivery 02/06/2019 05/08/2019 Overview: History of frederick inj documented as of this encounter (statuses as of 06/13/2019) Immunizations Name Administration Dates Next Due Influenza [...] Sign Reading Time Taken Comments Blood Pressure 117/76 06/13/2019 10:38 AM QUARTER LINING SMOOTHER Pulse 106 06/13/2019 10:38 AM QUARTER LINING SMOOTHER Temperature 36.6 C (97.8 F) 06/13/2019 10:38 AM QUARTER LINING SMOOTHER Respiratory Rate 18 06/13/2019 10:38 AM QUARTER LINING SMOOTHER Oxygen Saturation 98% 06/13/2019 10:38 AM QUARTER LINING SMOOTHER Inhaled Oxygen Concentration - - Weight 59 kg (130 lb) 06/13/2019 10:38 AM QUARTER LINING SMOOTHER Height 154.9 cm (5' 1") 06/13/2019 10:38 AM QUARTER LINING SMOOTHER Body Mass Index 24.56 06/13/2019 10:38 AM QUARTER LINING SMOOTHER documented in this encounter Discharge Instructions Lewis Mccollum MD - 06/13/2019 DIAGNOSIS Diagnoses that have been ruled out: None Diagnoses that are still under consideration: None Final diagnoses: Headache disorder NO LIFE-THREATENING FINDINGS ON TODAY'S EXAM. PROCEDURES IN THE ER TODAY: Orders Placed This Encounter Procedures URINALYSIS MEDICATIONS ADMINISTERED IN THE ER TODAY AND DISCHARGE MEDICATIONS: Orders Placed This Encounter Medications HYDROcodone-acetaminophen (NORCO 5) 5-325 mg tablet 1 tablet FOLLOW-UP RECOMMENDATIONS: RECOMMEND FOLLOW-UP WITH A PRIMARY CARE PROVIDER OR RETIREMENT CONSULTANT SPECIALIST IN 2-5 DAYS, ESPECIALLY IF NOIMPROVEMENT IN SYMPTOMS. MAY FOLLOW-UP WITH A PROVIDER OF YOUR CHOICE, SUCH : 1. A PHYSICIAN OF YOUR CHOICE 2. [facility], . LOCATIONS IN [facility] 3. [facility], [address] [place] [address]; OR, IF YOU WISH TO FOLLOW-UP WITHIN THE [facility], MAY TRY THESE OPTIONS (CLINIC APPOINTMENTS AVAILABLE ON [id number] BASIS): 1. SCHEDULE AN APPOINTMENT ONLINE AT WWW.[facility] 2. OR CALL THE [facility] AT OR 3. OR CALL YOUR [facility] PHYSICIAN'S OFFICE DIRECTLY IF YOU ARE ALREADY AN ESTABLISHED [facility] PATIENT. RETURN TO ER FOR WORSENING OF SYMPTOMS documented in this encounter Plan of Treatment Date Type Specialty Care Team Description 06/18/2019 Routine OB Satellites Risk, Visit Qij-Zjnyi-Ca/High 08/03/2019 Hospital Encounter Obstetrics Fiorella Ni MD [address] [place] [address] 08/03/2019 Surgery Surgery Faculty, Ob SECTION [address] [place] [address] Health Maintenance Due Date Last Done Comments [...] Priority Date/Time Associated Comments Diagnosis URINALYSIS STAT 06/13/2019 12:12 PM Headache disorder Results for this QUARTER LINING SMOOTHER procedure are in the results section. NOTICE OF PRIVACY Routine 06/13/2019 10:13 AM PRACTICES QUARTER LINING SMOOTHER documented in this encounter Results URINALYSIS (06/13/2019 12:12 PM QUARTER LINING SMOOTHER) APPEARANCE Hazy (A) Clear [facility] COLOR Yellow Yellow [facility] PH 7.0 4.8 - 8.0 [facility] SP GRAVITY 1.006 1.003 - 1.030 [facility] GLU U QUAL Normal Normal [facility] BLOOD Negative Negative [facility] KETONES Negative Negative [facility] PROTEIN Negative Negative [facility] UROBILIN Normal Normal [facility] BILIRUBIN Negative Negative [facility] NITRITE Negative Negative [facility] LEUK ANJELICA 75/uL (A) Negative [facility] RBC/HPF 5 (H) 0 - 3 HPF [facility] WBC/HPF 2 0 - 5 HPF [facility] BACTERIA Moderate (A) Negative [facility] MUCOUS Slight (A) Negative LPF [facility] SQ EPITH 11 HPF [facility] Specimen Urine - URINE, CLEAN CATCH Performing Organization Address City/State/Zipcode Phone Number [facility] CLIA: [id number], [address] [place] [address] documented in this encounter Visit Diagnoses Diagnosis Headache disorder - Primary Headache documented in this encounter Administered Medications Medication Order MAR Action Action Date Dose Rate Site HYDROcodone-acetaminophen Given 06/13/2019 12:12 PM QUARTER LINING SMOOTHER 1 tablet (NORCO 5) 5-325 mg tablet 1 tablet 1 tablet, Oral, ONCE, 1 dose, 06/13/19 at 1315, [place] documented in this encounter Insurance Payer Benefit Plan / Subscriber ID Effective Phone Address Type Group Dates SAMMY CHRISTIANSON xxxxxxxxx 2019-Pres [place] Medicaid HEALTHCARE [place]CARE [place] [id number] MANAGED MEDICAID [place] documented as of this encounter
--- OUTSIDE RECORDS SUMMARY | 2019-07-10 22:25 | XMS REPORT | Summary of Care ---
:1995 Author Organization [facility] Address [address] [place] [address] Care Team Providers Name Role Phone Shelby Taylor [facility] Primary Care Provider Luke Baker Insurance Hmo Encounter Details Date Type Department Care Team Description 06/26/2019 Abstract [facility] Shelby Taylor, [address] [place] [address] [phone] [place] [address] Allergies No Known Allergiesdocumented as of this encounter (statuses as of 06/26/2019) Medications Medication Sig Dispensed Refills Start Date [...] as of this encounter (statuses as of 06/26/2019) Active Problems Problem Noted Date IUGR (intrauterine [...] as of this encounter (statuses as of 06/26/2019) Resolved Problems Problem Noted Date Resolved Date 39 weeks gestation of 05/29/2019 05/30/2019 uterine contractions in second trimester, antepartum 05/14/201905/28 Candidiasis of vulva and vagina 03/30/2019 05/28/2019 documented as of this encounter (statuses as of 06/26/2019) Immunizations Name Administration Dates Next Due Influenza [...] Description 06/30/2019 [facility] 07[facility]2019 Routine OB Satellites Shelby Taylor, Visit [facility] [address] [place] [address] [phone] 08/03/2019 Hospital Encounter Obstetrics Fiorella iN MD [address] [place], [place] [address] [address] 08/03/2019 Surgery Surgery Faculty, Ob SECTION [address] [place] [address] Health Maintenance Due Date Last Done Comments [...] [place] Medicaid HEALTHCARE - [place]CARE [place] [id number] MANAGED MEDICAID [place] documented as of this encounter
--- OUTSIDE RECORDS SUMMARY | 2019-07-10 22:25 | XMS REPORT | Summary of Care ---
:1995 Author Organization [facility] Address [address] [place] [address] Care Team Providers Name Role Phone Shelby Taylor [facility] Primary Care Provider Luke Baker Insurance Hmo Reason for Visit Auth/Cert Status Reason Specialty Diagnoses / Procedures Referred By Contact Referred To Contact Obstetrics [facility] Labor And Delivery [address] [place] [address] [place] [address] Encounter Details Date Type Department Care Team Description 06/22/2019 Hospital Encounter [facility] Labor and Delivery Shelia Quiñonez MD [address] [place] [address] [address] [place], [place] [id number] Allergies No Known Allergiesdocumented as of this [...] Sign Reading Time Taken Comments Blood Pressure 120/77 06/22/2019 7:00 PM CORPORATE WEBMASTER Pulse 96 06/22/2019 7:00 PM CORPORATE WEBMASTER Temperature 36.7 C (98 F) 06/22/2019 7:00 PM CORPORATE WEBMASTER Respiratory Rate 18 06/22/2019 7:00 PM CORPORATE WEBMASTER Oxygen Saturation 100% 06/22/2019 7:00 PM CORPORATE WEBMASTER Inhaled Oxygen Concentration - - Weight - - Height - - Body Mass Index - - documented in this encounter Discharge Instructions Katy Rodney RN - 06/22/2019Preterm Labor (36 weeks and before ): 1. Drink at least 10-12 glasses of [...] 7. Leaking of fluid from your vagina. Decreased Movement: 1. Your baby should move [...] brown spotting after a vaginal exam. 2. [place], light red and brownish spotting is not [...] hours apart. 2. Do not take any seuy-zla-pnhqowc medications for an illness unless you have [...] that wont go away, even after taking mhhr-ffi-waglgba medicines as instructed by your care provider. 4. Changes in vision, including blurry vision, a sensation of flashing lights or spots, or temporaryloss of vision. 5. Severe pain or tenderness in your upper stomach area. This may include nausea and vomiting. 6. documented in this encounter Plan of Treatment Date Type Specialty Care Team Description 06/23/2019 Nurse Visit OB Satellites Visit, Elvin Nurse 06/25/2019 Routine OB Satellites Risk, Visit Edp-Quthl-Ax/High 08/03/2019 Hospital Encounter Obstetrics Fiorella Ni MD [address] [place] [address]. [place] [address] 08/03/2019 Surgery Surgery Faculty, Ob SECTION [address] [place] [address] Name Type Priority Associated Diagnoses Date/Time URINE CULTURE LAB Routine 06/22/2019 8:29 PM CORPORATE WEBMASTER Name Type Priority Associated Diagnoses Order Schedule URINE CULTURE LAB Routine ONCE for 1 Occurrences starting 06/22/2019 until 06/22/2019 Health Maintenance Due Date Last Done Comments [...] Name Priority Date/Time Associated Comments Diagnosis URINALYSIS Routine 06/22/2019 8:29 Results for this PM CORPORATE WEBMASTER procedure are in the results section. CBC WITH DIFFERENTIAL Routine 06/22/2019 7:31 Results for this PM CORPORATE WEBMASTER procedure are in the results section. CBC WITH DIFFERENTIAL Routine 06/22/2019 7:31 Results for this PM CORPORATE WEBMASTER procedure are in the results section. COMP. METABOLIC PANEL Routine 06/22/2019 7:31 Results for this (11313) PM CORPORATE WEBMASTER procedure are in the results section. LIPASE Routine 06/22/2019 7:31 Results for this PM CORPORATE WEBMASTER procedure are in the results section. AMYLASE Routine 06/22/2019 7:31 Results for this PM CORPORATE WEBMASTER procedure are in the results section. documented in this encounter Results URINALYSIS (06/22/2019 8:29 PM CORPORATE WEBMASTER) APPEARANCE Clear Clear [facility] COLOR Yellow Yellow [facility] PH 6.0 4.8 - 8.0 [facility] SP GRAVITY 1.021 1.003 - 1.030 [facility] GLU U QUAL 50 mg/dL (A) Normal [facility] BLOOD Negative Negative [facility] KETONES 5 mg/dL (A) Negative [facility] PROTEIN Negative Negative [facility] UROBILIN 2.0 mg/dL (A) Normal [facility] BILIRUBIN Negative Negative [facility] NITRITE Negative Negative [facility] LEUK ANJELICA Negative Negative [facility] RBC/HPF 17 (H) 0 - 3 HPF [facility] WBC/HPF 1 0 - 5 HPF [facility] BACTERIA Few (A) Negative [facility] MUCOUS Moderate (A) Negative LPF [facility] SQ EPITH 3 HPF [facility] Specimen Urine - URINE, CLEAN CATCH Performing Organization Address City/State/Zipcode Phone Number [facility] CLIA: [id number], [address] [place] [address] CBC WITH DIFFERENTIAL (06/22/2019 7:31 PM CORPORATE WEBMASTER) WBC 11.42 (H) 4.30 - 11.10 [facility] 10*3/L [facility] RBC 3.63 (L) 3.93 - 5.25 [facility] 10*6/L [facility] HGB 10.5 (L) 11.6 - 15.0 [facility] g/dL [facility] HCT 31.1 (L) 35.7 - 45.2 % [facility] MCV 85.7 80.6 - 95.5 fL [facility] MCH 28.9 25.9 - 32.8 pg [facility] MCHC 33.8 31.6 - 35.1 [facility] g/dL [facility] RDW-SD 43.0 39.0 - 49.9 fL [facility] RDW-CV 13.9 12.0 - 15.5 % [facility] PLT 258 166 - 358 [facility] 10*3/L [facility] MPV 10.1 9.5 - 12.9 fL [facility] NRBC/100 WBC 0.0 0.0 - 10.0 /100 [facility] WBCs [facility] NRBC x10^3 <0.01 10*3/L [facility] GRAN MAT (NEUT) % 69.4 % [facility] IMM GRAN % 2.30 % [facility] LYMPH % 21.0 % [facility] MONO % 5.2 % [facility] EOS % 1.7 % [facility] BASO % 0.4 % [facility] GRAN MAT x10^3(ANC) 7.94 (H) 1.88 - 7.09 [facility] 10*3/uL [facility]ITAL [facility]ORY IMM GRAN x10^3 0.26 (H) 0.00 - 0.06 [facility] 10*3/uL [facility] LYMPH x10^3 2.40 1.32 - 3.29 [facility] 10*3/uL [facility] MONO x10^3 0.59 0.33 - 0.92 [facility] 10*3/uL [facility] EOS x10^3 0.19 0.03 - 0.39 [facility] 10*3/uL [facility] BASO x10^3 0.04 0.01 - 0.07 [facility] 10*3/uL [facility] Specimen Blood - HAND, RIGHT Performing Organization Address [facility] Phone Number [facility] CLIA: [id number], [address] [place] [address] LIPASE (06/22/2019 7:31 PM CORPORATE WEBMASTER) LIPASE 32 0 - 220 U/L [facility] Specimen Blood - HAND, RIGHT Performing Organization Address City/[facility] Phone Number [facility] CLIA: [id number], [address] [place] [address] AMYLASE (06/22/2019 7:31 PM CORPORATE WEBMASTER) MARTY 72 35 - 110 U/L [facility] Specimen Blood - HAND, RIGHT Performing Organization Address [facility] Phone Number [facility] CLIA: [id number], [address] [place] [address] COMP. METABOLIC PANEL (29232) (06/22/2019 7:31 PM CORPORATE WEBMASTER) NA 136 135 - 145 [facility] mmol/L [facility] K 3.7 3.5 - 5.0 [facility] mmol/L [facility] CL 108 98 - 108 mmol/L [facility] CO2 TOTAL 21 (L) 23 - 31 mmol/L [facility] AGAP 7 2 - 16 [facility] BUN 8 7 - 23 mg/dL [facility] GLUCOSE 91 70 - 110 mg/dL [facility] CREATININE 0.45 (L) 0.50 - 1.04 [facility] mg/dL [facility] TOTAL BILI 0.5 0.1 - 1.1 mg/dL [facility] CALCIUM 8.6 8.6 - 10.6 [facility] mg/dL HOSPITAL [facility] T PROTEIN 6.8 6.3 - 8.2 g/dL [facility] ALBUMIN 3.8 3.5 - 5.0 g/dL [facility] ALK PHOS 121 34 - 122 U/L [facility] ALTv 10 5 - 35 U/L [facility] AST(SGOT) 22 13 - 40 U/L [facility] eGFR Calculation 171.2 mL/min/1.73m2 [facility] ([facility] [place]) eGFR Calculation 207.5 mL/min/1.73m2 [facility] () [facility] Specimen Blood - HAND, RIGHT Narrative Performed At Association of Glomerular Filtration Rate (GFR) [facility] and Staging of Kidney Disease* + + +- + | GFR (mL/min/1.73 m2) | With Kidney Damage | Without Kidney Damage + + +- + | >90 | Stage one | Normal + + +- + | 60-89 | Stage two | Decreased GFR + + +- + | 30-59 | Stage three | Stage three + + +- + | 15-29 | Stage four | Stage four + + +- + | <15 (or dialysis) | Stage five | Stage five + + +- + *Each stage assumes the associated GFR level has been in effect for at least three months. Stages 1 to 5, with or without kidney disease, indicate chronic kidney disease. Notes: Determination of stages one and two (with eGFR >59mL/min/1.73 m2) requires estimation of kidney damage for at least three months as defined by structural or functional abnormalities of the kidney, manifested by either: Pathological abnormalities or Markers of kidney damage (including abnormalities in the composition of the blood or urine or abnormalities in imaging tests). Performing Organization Address City/State/Zipcode Phone Number [facility] CLIA: [id number], [address] [place] [address] [facility] [address] documented in this encounter Administered Medications Medication Order MAR Action Action Date Dose Rate Site [id number] IV infusion 1,000 mL New Bag 06/22/2019 7:31 PM CORPORATE WEBMASTER 1,000 mL 125 mL/hr at 125 mL/hr, IV Infusion, CONTINUOUS, Starting 06/22/19 at 1915, Until Discontinued, Routine Medication Order MAR Action Action Date Dose Rate Site metoclopramide HCl (REGLAN) Given 06/22/2019 8:13 PM CORPORATE WEBMASTER 10 mg injection 10 mg 10 mg, Slow IV Push, ONCE, 1 dose, 06/22/19 at 1915, Routine documented in this encounter Insurance Payer Benefit Plan / Subscriber ID Effective Phone Address Type Group Dates SAMMY BAZANINA xxxxxxxxx 2019-[facility] O BOX Medicaid HEALTHCARE [place] [id number] MANAGED MEDICAID [place], [place] documented as of this encounter"
--- OUTSIDE RECORDS SUMMARY | 2019-07-10 22:25 | XMS REPORT | Summary of Care ---
:1995 Author Organization [address] [address] Care Team Providers Name Role Phone Shelby Taylor BETTY Primary Care Provider Luke Baker Insurance Hmo Encounter Details Date Type Department Care Team Description 06/15/2019 [facility] Joshi [facility] [address] [facility] [phone] [place] [address] Allergies No Known Allergiesdocumented as of this [...] Description 06/18/2019 Routine OB Satellites Risk, Visit Shz-Fxxsc-Ii/High 06/22/2019 Nurse Visit OB Satellites Visit, Elvin Nurse 08/03/2019 Hospital Encounter Obstetrics Fiorella Ni MD [address] [place] [address] 08/03/2019 Surgery Surgery Faculty, Ob SECTION [address] [place] [address] Health Maintenance Due Date Last Done Comments [...] Alisson RYAN Medicaid HEALTHCARE - [place]CARE [place] [id number] MANAGED MEDICAID [place], [place] documented as of this encounter
--- OUTSIDE RECORDS SUMMARY | 2019-07-10 22:25 | XMS REPORT | Summary of Care ---
:1995 Author Organization [facility] Address [address] [place] [address] Care Team Providers Name Role Phone [facility] Primary [facility] Provider Luke Baker Insurance Hmo Encounter Details Date Type Department Care Team Description 05/25/2019 [facility] [address] [facility] [address] [place] [address] [facility] [phone] [place] [address] Allergies No Known Allergiesdocumented as of this encounter (statuses as of 06/09/2019) Medications Medication Sig Dispensed Refills Start End Status Date Date PNV 67-iron Take 1 Each by 30 capsule 9 Active ps-folate no.1-dha mouth daily. 9 (VITAFOL ULTRA) 29 mg iron- 1 mg-200 mg CapIndications: Supervision of high risk , antepartum HYDROXYprogest,PF,,p 1 mL by 22 mL 0 Active reg presv, 250 mg/mL Intramuscular 9 020 (1 mL) route weekly for injectionIndications 22 doses. : History of delivery famotidine 40 mg Take 1 tablet by 30 tablet 3 Active tabletIndications: mouth daily. 9 Gastroesophageal reflux in ferrous sulfate 325 Take 1 tablet by 120 tablet 6 Active mg (65 mg iron) mouth 2 (two) 9 tabletIndications: times daily. Anemia of mother in , antepartum ascorbic acid, Take 1 tablet by 90 tablet 6 Active vitamin C, 500 mg mouth 3 (three) 9 tabletIndications: times daily. Anemia of mother in , antepartum proMETHazine 25 mg Take 1 tablet by 30 tablet 0 Active tabletIndications: mouth every 6 0 Nausea and vomiting (six) hours as during needed for Nausea and Vomiting (N/V). calcium carbonate Take 1 tablet by 90 tablet 0 Active 500 mg calcium mouth 3 (three) 0 (1,250 mg) times daily with tabletIndications: meals. Leg cramps in cyclobenzaprine 10 Take 1 tablet by 90 tablet 0 Active mg mouth 3 (three) 0 tabletIndications: times daily as Back pain affecting needed for Muscle in third Spasms. trimester buPROPion SR Take 1 tablet by 60 tablet 3 Active (WELLBUTRIN SR) 150 mouth 2 (two) 0 mg SR times daily. tabletIndications: Depression affecting in third trimester, antepartum busPIRone 10 mg Take 1 tablet by 90 tablet 3 Active tabletIndications: mouth 3 (three) 0 Anxiety during times daily. in third trimester, antepartum albuterol (PROVENTIL Inhale 2 Puffs 8.5 g 3 Discontinued HFA) 90 every 6 (six) 0 020 mcg/actuation hours as needed inhalerIndications: for Wheezing or Asthma affecting Shortness of in second Breath. trimester Hospital, Clinic, or Other Ordered Dose Route Frequency Start Date End Date Status Facility Administered Medication HYDROXYprogest(PF)(preg 250 mg IM QWEEKLY 03/05/2019 06/04/2019 Ended presv) (ODESSA) 250 mg/mL (1 mL) injection 250 mg documented as of this encounter (statuses as of 06/09/2019) Active Problems Problem Noted Date 29 weeks gestation of 05/14/2019 BV (bacterial [...] as of this encounter (statuses as of 06/09/2019) Resolved Problems Problem Noted Date Resolved Date uterine contractions in second trimester, antepartum 05/14/201905/28 Candidiasis of vulva and vagina 03/30/2019 05/28/2019 History of delivery 02/06/2019 05/08/2019 Overview: History of odessa inj documented as of this encounter (statuses as of 06/09/2019) Immunizations Name Administration Dates Next Due Influenza [...] Nurse 06/18/2019 Routine OB Satellites Risk, Visit Sgb-Jsacw-Kp/High 08/03/2019 Hospital Encounter Obstetrics Fiorella Ni MD [address] [place] [address] 08/03/2019 Surgery Surgery Faculty, Ob SECTION [address] [place] [address] Health Maintenance Due Date Last Done Comments [...] O BOX Medicaid HEALTHCARE [place] [id number] MANAGED MEDICAID [place] documented as of this encounter
--- OUTSIDE RECORDS SUMMARY | 2019-07-10 22:25 | XMS REPORT | Summary of Care ---
:1995 Author Organization [facility] Address [address] [place] [address] Care Team Providers Name Role Phone Shelby Taylor [facility] Primary Care Provider Luke Baker Insurance Hmo Reason for Visit Reason Comments NURSE VISIT Encounter Details Date Type Department Care Team Description 06/11/2019 Nurse Visit [facility]- Shelby Taylor, [facility] [address] [place] [address] Counseled by nurse Maurice Visit [facility] Nurse (Primary Dx) [address] [place] [address] Allergies No Known Allergiesdocumented as of this encounter (statuses as of 06/18/2019) Medications Medication Sig Dispensed Refills Start Date [...] as of this encounter (statuses as of 06/18/2019) Active Problems Problem Noted Date Pain of [...] as of this encounter (statuses as of 06/18/2019) Resolved Problems Problem Noted Date Resolved Date 39 weeks gestation of 05/29/2019 05/30/2019 uterine contractions in second trimester, antepartum 05/14/201905/28 Candidiasis of vulva and vagina 03/30/2019 05/28/2019 History of delivery 02/06/2019 05/08/2019 Overview: History of frederick inj documented as of this encounter (statuses as of 06/18/2019) Immunizations Name Administration Dates Next Due Influenza [...] Sign Reading Time Taken Comments Blood Pressure 124/77 06/11/2019 9:45 AM TELEPHONE ANSWERER Pulse 107 06/11/2019 9:45 AM TELEPHONE ANSWERER Temperature 36.7 C (98.1 F) 06/11/2019 9:45 AM TELEPHONE ANSWERER Respiratory Rate 16 06/11/2019 9:45 AM TELEPHONE ANSWERER Oxygen Saturation - - Inhaled Oxygen Concentration - - Weight 58.3 kg (128 lb 8 oz) 06/11/2019 9:45 AM TELEPHONE ANSWERER Height 154.9 cm (5' 1") 06/11/2019 9:45 AM TELEPHONE ANSWERER Body Mass Index 24.28 06/11/2019 9:45 AM TELEPHONE ANSWERER documented in this encounter Progress Notes Geri Julio RN - 06/11/2019 9:30 AM CSTNatanael Dyson is a 24 year old female Patient here for [place] injection. Patient left without having the injection. 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.Electronically signed by Geri Julio RN at 4:52 PM CSTdocumented in this encounter Plan of Treatment Date Type Specialty Care Team Description 06/22/2019 Nurse Visit OB Satellites Visit, Elvin Nurse 06/25/2019 Routine OB Satellites Risk, Visit Aou-Hgunm-Rn/High 08/03/2019 Hospital Encounter Obstetrics Fiorella Ni MD [address] [place] [address] 08/03/2019 Surgery Surgery Faculty, Ob SECTION [address] [place] [address] Health Maintenance Due Date Last Done Comments [...] filedocumented in this encounter Visit Diagnoses Diagnosis Counseled by nurse - Primary documented in this encounter Insurance Payer Benefit Plan / Subscriber ID Effective Phone Address Type Group Dates SAMMY BAZANINA xxxxxxxxx 2019-Pres [address] Medicaid HEALTHCARE - [place]CARE [place] [id number] MANAGED MEDICAID [place] documented as of this encounter
--- OUTSIDE RECORDS SUMMARY | 2019-07-10 22:25 | XMS REPORT | Summary of Care ---
:1995 Author Organization [facility] Address [address] [place] [address] Care Team Providers Name Role Phone Shelby [facility] Provider Luke Baker Insurance Hmo Reason for Referral Radiology Services (STAT) Status Reason Specialty Diagnoses / Referred By Referred To Procedures Contact Contact New Request Diagnostic Diagnoses Supervision of high risk in third trimester Threatened labor, third trimester Shelia Quiñonez, Radiology Procedures US PELVIS > [address] [place] [address] [address] [place] [address] Reason for Visit Auth/Cert Status Reason Specialty Diagnoses / Procedures Referred By Contact Referred To Contact Obstetrics Diagnoses CONTRACTIONS/ POSSIBLE [facility] Labor And Delivery [address] [place] [address] [place] [address] Encounter Details Date Type Department Care Team Description 06/17/2019 Hospital Encounter [facility] Labor and Shelia Quiñonez MD 32 weeks gestation Delivery Unit [address] [place] [address] [place] [address] [place] [phone] Allergies No Known Allergiesdocumented as of this encounter (statuses as of 06/17/2019) Medications Medication Sig Dispensed Refills Start Date [...] as of this encounter (statuses as of 06/17/2019) Active Problems Problem Noted Date Pain of [...] as of this encounter (statuses as of 06/17/2019) Resolved Problems Problem Noted Date Resolved Date 39 weeks gestation of 05/29/2019 05/30/2019 uterine contractions in second trimester, antepartum 05/14/201905/28 Candidiasis of vulva and vagina 03/30/2019 05/28/2019 History of delivery 02/06/2019 05/08/2019 Overview: History of [place]red[place] inj documented as of this encounter (statuses as of 06/17/2019) Immunizations Name Administration Dates Next Due Influenza [...] Sign Reading Time Taken Comments Blood Pressure 130/77 06/17/2019 9:46 AM EVENT PLANNING INTERN Pulse 120 06/17/2019 9:46 AM EVENT PLANNING INTERN Temperature 36.8 C (98.2 F) 06/17/2019 9:46 AM EVENT PLANNING INTERN Respiratory Rate 18 06/17/2019 9:46 AM EVENT PLANNING INTERN Oxygen Saturation - - Inhaled Oxygen Concentration - - Weight 58.5 kg (129 lb) 06/17/2019 9:46 AM EVENT PLANNING INTERN Height 154.9 cm (5' 1") 06/17/2019 9:46 AM EVENT PLANNING INTERN Body Mass Index 24.37 06/17/2019 9:46 AM EVENT PLANNING INTERN documented in this encounter Discharge Instructions Tresa Vo RN - 06/17/2019Preterm Labor (36 weeks and before): 1. Drink [...] brown spotting after a vaginal exam. 2. [place], light red and brownish spotting is not [...] hours apart. 2. Do not take any xxmz-oad-kahyjwv medications for an illness unless you have [...] that wont go away, even after taking djmt-ifa-aojvjyn medicines as instructed by your care provider. 4. Changes in vision, including blurry vision, a sensation of flashing lights or spots, or temporaryloss of vision. 5. Severe pain or tenderness in your upper stomach area. This may include nausea and vomiting. documented in this encounter Plan of Treatment Date Type Specialty Care Team Description 06/18/2019 Routine OB Satellites Risk, Visit Zbx-Nsdmq-Ek/High 06/22/2019 Nurse Visit OB Satellites Visit, Elvin Nurse 08/03/2019 Hospital Encounter Obstetrics Fiorella Ni MD [address] [place] [address] 08/03/2019 Surgery Surgery Faculty, Ob SECTION [address] [place] [address] Name Type Priority Associated Diagnoses Date/Time GC & CHLAMYDIA AMPLIFIED LAB STAT 06/17/2019 10:19 AM EVENT PLANNING INTERN ASSAY Name Type Priority Associated Diagnoses Order Schedule GC & CHLAMYDIA AMPLIFIED LAB STAT STAT for 1 Occurrences ASSAY starting 06/17/2019 until 06/17/2019 ADC ONLY - FERN TEST LAB STAT STAT for 1 Occurrences starting 06/17/2019 until 06/17/2019 Health Maintenance Due Date Last Done Comments [...] Priority Date/Time Associated Diagnosis Comments US PELVIS STAT 06/17/2019 3:02 PM Supervision of high Results for this > 14 WEEKS EVENT PLANNING INTERN risk in procedure are in third trimester the results Threatened section. labor, third trimester ADC ONLY - FERN STAT 06/17/2019 10:19 AM Results for this TEST EVENT PLANNING INTERN procedure are in the results section. ADC CLC OR LCC ONLY STAT 06/17/2019 10:19 AM Results for this - WET PREP EVENT PLANNING INTERN procedure are in the results section. documented in this encounter Results US PELVIS > 14 WEEKS (06/17/2019 3:02 PM EVENT PLANNING INTERN) Specimen Narrative Performed At HISTORY: HERIBERTO and growth. Possible leaking of fluid. PACS/VR/DOSE TECHNIQUE: Routine OB sonography of the gravid uterus is completed. GA: 33 weeks and 2 days. FINDINGS: Single live IUP is confirmed. MEASUREMENTS: RATIOS: BPD=8.5 cm.=33 weeks 2 day HC/AC=1.20 (0.96-1.18 ) HC=30.56 cm.=34 weeks 1 day FL/AC=25 ( 20 ? 24 ) AC=25.40 cm.=29 weeks 5 day FL/BPD=78 ( 71 ? 87 ) FL =6.40 cm.=33 weeks 1 day COMPOSITE AGE=32 weeks 4 day PLACENTA / AMNIOTIC FLUID: Amniotic fluid is normal. HERIBERTO=16.92 cm. Placenta is anterior Grade I. No evidence of placenta previa. FETUS: Normal four-chambered heart. Three vessels of umbilical cord identified. stomach seen on the left side. Normal kidneys and bladder. Normal head and spine. WEIGHT: 1762 gm. DYLAN: 08/08/2019 CONCLUSION: 1. Single live IUP of 32 weeks and 4 day in cephalic presentation confirmed. 2. 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 DANELLE RECINOS M.D., D.A.B.R. Procedure Note [facility], Radiant Results Inft User - 06/17/2019 3:09 PM EVENT PLANNING INTERN HISTORY: HERIBERTO and growth. Possible leaking of fluid. TECHNIQUE: Routine OB sonography of the gravid uterus is completed. GA: 33 weeks and 2 days. FINDINGS: Single live IUP is confirmed. MEASUREMENTS: RATIOS: BPD=8.5 cm.=33 weeks 2 day HC/AC=1.20 (0.96-1.18 ) HC=30.56 cm.=34 weeks 1 day FL/AC=25 ( 20 ? 24 ) AC=25.40 cm.=29 weeks 5 day FL/BPD=78 ( 71 ? 87 ) FL=6.40 cm.=33 weeks 1 day COMPOSITE AGE=32 weeks 4 day PLACENTA / AMNIOTIC FLUID: Amniotic fluid is normal. HERIBERTO=16.92 cm. Placenta is anterior Grade I. No evidence of placenta previa. FETUS: Normal four-chambered heart. Three vessels of umbilical cord identified. stomach seen on the left side. Normal kidneys and bladder. Normal head and spine. WEIGHT: 1762 gm. DYLAN: 08/08/2019 CONCLUSION: 1. Single live IUP of 32 weeks and 4 day in cephalic presentation confirmed. 2. 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 DANELLE RECINOS M.D., D.A.B.R. Performing Organization Address City/[facility] Phone Number PACS/VR/DOSE ADC CLC OR LCC ONLY - WET PREP (06/17/2019 10:19 AM EVENT PLANNING INTERN) Wet Prep No Trichomonas [facility] vaginalis present [facility] Wet Prep No Yeast [facility] Wet Prep Occasional (Rare) Clue [facility] cells present [facility] Wet Prep Occasional (Rare) [facility] Epithelial cells [facility] Wet Prep Occasional (Rare) WBC [facility] per high-power field [facility] Wet Prep Occasional (Rare) Red [facility] blood cells [facility] Wet Prep Occasional (Rare) [facility] Organisms seen HOSPITAL LAB[facility]ORY Specimen Fluid - CERVIX Performing Organization Address [facility] Phone Number [facility] CLIA: [id number], [address] [place] [address] [facility] ONLY - FERN TEST (06/17/2019 10:19 AM EVENT PLANNING INTERN) Fern Test Positive [facility] Specimen Fluid - VAGINA Performing Organization Address [facility] Phone Number [facility] CLIA: [id number], [address] [place] [id number] [place] [address] documented in this encounter Visit Diagnoses Diagnosis Threatened labor, third trimester - Primary Supervision of high risk in third trimester Unspecified high-risk 32 weeks gestation of state, incidental History of section Other postprocedural status History of Previous delivery, delivered, with or without mention of antepartum condition Multiparity uterine contractions Threatened premature labor, unspecified as to episode of care documented in this encounter Insurance Payer Benefit Plan / Subscriber ID Effective Phone Address Type Group Dates SAMMY CHRISTIANSON xxxxxxxxx 2019- [address] Medicaid HEALTHCARE - HEALTHCARE [facility] [address] MANAGED MEDICAID [place], [place]ID [place] documented as of this encounter
--- OUTSIDE RECORDS SUMMARY | 2019-07-10 22:26 | XMS REPORT | Summary of Care ---
:1995 Author Organization [facility] Address [address] [place] [address] Care Team Providers Name Role Phone Shelby Taylor [facility] Primary Care Provider Luke Baker Insurance Hmo Reason for Visit Reason Comments NURSE VISIT Encounter Details Date Type Department Care Team Description 06/30/2019 Nurse Visit [facility]- Shelby Taylor, [facility] [address] [place] [address] History of [place] Visit, [facility] Nurse delivery (Primary Dx) [address] [place] [address] Allergies No Known Allergiesdocumented as of this encounter (statuses as of 06/30/2019) Medications Medication Sig Dispensed Refills Start Date [...] as of this encounter (statuses as of 06/30/2019) Active Problems Problem Noted Date IUGR (intrauterine [...] History of delivery 02/06/2019 Overview: History of [place] inj History of section 02/06/2019 History of 02/06/2019 Estimated Date of Delivery Comments Yes 08/09/2019 Based on last menstrual period of 11/02/2018 documented as of this encounter (statuses as of 06/30/2019) Resolved Problems Problem Noted Date Resolved Date 39 weeks gestation of 05/29/2019 05/30/2019 uterine contractions in second trimester, antepartum 05/14/201905/28 Candidiasis of vulva and vagina 03/30/2019 05/28/2019 documented as of this encounter (statuses as of 06/30/2019) Immunizations Name Administration Dates Next Due Influenza [...] Signs Not on filedocumented in this encounter Progress Notes Zuleyma Degroot RN - 06/30/2019 2:30 PM CST24 year old female in clinic today for [place] progesterone injection. 250 mg administered IM to right gluteus - see MAR entry. Witnessed by Trupti Julio RN. Medication supplied by outside pharmacy. Pt tolerated injection well, warning signs discussed with her at this time. Pt instructed to RTC 1 wk fornext dose or PRN. Pt verbalized understanding. ZULEYMA DEGROOT RN 06/30/2019 3:28 PM documented in this encounter Plan of Treatment Date Type Specialty Care Team Description 07/09/2019 Routine OB Satellites Shelby Taylor, Visit [facility] [address] [place] [address] [phone] 08/03/2019 Hospital Encounter Obstetrics Fiorella Ni MD [address] [place] [address] 08/03/2019 Surgery Surgery Faculty, Ob SECTION [address] [place] [address] Health Maintenance Due Date Last Done Comments [...] this encounter Visit Diagnoses Diagnosis History of delivery - Primary documented in this encounter Administered Medications Medication Order MAR Action Action Date Dose Rate Site HYDROXYprogest(PF)(preg Given 06/30/2019 3:47 PM 250 mg Right presv) (ODESSA) 250 HOSPITAL INSURANCE REPRESENTATIVE Dorsogluteal-IM mg/mL (1 mL) injection 250 mg 250 mg, Intramuscular, QWEEKLY, 14 doses, First dose on Kathie 03/05/19 at 1415, Last dose on Kathie 06/04/19 at 1415, Routine Given 06/23/2019 9:24 AM HOSPITAL INSURANCE REPRESENTATIVE 250 mg Left Dorsogluteal-IM Given 06/15/2019 9:59 AM HOSPITAL INSURANCE REPRESENTATIVE 250 mg Right Dorsogluteal-IM documented in this encounter Insurance Payer Benefit Plan / Subscriber ID Effective Phone Address Type Group Dates SAMMY CHRISTIANSON xxxxxxxxx 2019-Pres [place] Medicaid HEALTHCARE - HEALTHCARE [place] [id number] MANAGED MEDICAID [place], [place] documented as of this encounter
--- OUTSIDE RECORDS SUMMARY | 2019-07-10 22:26 | XMS REPORT | Summary of Care ---
:1995 Author Organization [facility] Address [address] [place] [address] Care Team Providers Name Role Phone [facility] Primary Care Provider Luke Baker Insurance Hmo Reason for Visit Auth/Cert Status Reason Specialty Diagnoses / Procedures Referred By Contact Referred To Contact Obstetrics [facility] Labor And Delivery [address] [place] [address] [place] [address] Encounter Details Date Type Department Care Team Description 07/01/2019 - Hospital Encounter [facility] Labor and QuiñonezShelia MD 07/02/2019 Delivery [address] [place] [address] [place] [address] [address] [place], [place] [phone] Allergies No Known Allergiesdocumented as of this encounter (statuses as of 07/02/2019) Medications Medication Sig Dispensed Refills Start Date [...] as of this encounter (statuses as of 07/02/2019) Active Problems Problem Noted Date IUGR (intrauterine [...] as of this encounter (statuses as of 07/02/2019) Resolved Problems Problem Noted Date Resolved Date 39 weeks gestation of 05/29/2019 05/30/2019 uterine contractions in second trimester, antepartum 05/14/201905/28 Candidiasis of vulva and vagina 03/30/2019 05/28/2019 documented as of this encounter (statuses as of 07/02/2019) Immunizations Name Administration Dates Next Due Influenza [...] Sign Reading Time Taken Comments Blood Pressure 121/80 07/01/2019 10:20 PM FAVOR MAKER Pulse 92 07/02/2019 12:15 AM FAVOR MAKER Temperature 36.6 C (97.9 F) 07/01/2019 10:20 PM FAVOR MAKER Respiratory Rate 18 07/01/2019 10:20 PM FAVOR MAKER Oxygen Saturation 99% 07/02/2019 12:00 AM FAVOR MAKER Inhaled Oxygen Concentration - - Weight 59 kg (130 lb) 07/01/2019 10:20 PM FAVOR MAKER Height 154.9 cm (5' 1") 07/01/2019 10:20 PM FAVOR MAKER Body Mass Index 24.56 07/01/2019 10:20 PM FAVOR MAKER documented in this encounter Discharge Instructions Hattie Lawson RN - 07/02/2019Preterm Labor (36 weeks and before): 1. Drink [...] brown spotting after a vaginal exam. 2. [place], light red and brownish spotting is not [...] hours apart. 2. Do not take any akfj-wfp-qwpjvco medications for an illness unless you have [...] that wont go away, even after taking mgmb-xmc-adawbzr medicines as instructed by your care provider. 4. Changes in vision, including blurry vision, a sensation of flashing lights or spots, or temporaryloss of vision. 5. Severe pain or tenderness in your upper stomach area. This may include nausea and vomiting. 6. documented in this encounter Plan of Treatment Date Type Specialty Care Team Description 07/09/2019 Routine OB Satellites Shelby Taylor, Visit [facility] [address] [place], [place] [address] 08/03/2019 Hospital Encounter Obstetrics Fiorella Ni MD [address] [place] [address] 08/03/2019 Surgery Surgery Faculty, Ob SECTION [address] [place] [address] Name Type Priority Associated Diagnoses Date/Time URINE CULTURE LAB Routine 07/01/2019 10:50 PM FAVOR MAKER Name Type Priority Associated Diagnoses Order Schedule URINE CULTURE LAB Routine ONCE for 1 Occurrences starting 07/01/2019 until 07/01/2019 Health Maintenance Due Date Last Done Comments [...] Procedure Name Priority Date/Time Associated Comments Diagnosis ADC ONLY - FERN TEST STAT 07/01/2019 10:50 PM Results for this FAVOR MAKER procedure are in the results section. ADC CLC OR LCC ONLY Routine 07/01/2019 10:50 PM Results for this - WET PREP FAVOR MAKER procedure are in the results section. URINALYSIS Routine 07/01/2019 10:50 PM Results for this FAVOR MAKER procedure are in the results section. documented in this encounter Results ADC ONLY - FERN TEST (07/01/2019 10:50 PM FAVOR MAKER) Fern Test Negative [facility] Specimen Fluid - VAGINA Performing Organization Address City/[facility] Phone Number [facility] CLIA: [id number], [address] [place] [address] ADC CLC OR LCC ONLY - WET PREP (07/01/2019 10:50 PM FAVOR MAKER) Wet Prep No Trichomonas [facility] vaginalis present [facility] Wet Prep No Yeast [facility] Wet Prep No Clue cells present [facility] Wet Prep Occasional (Rare) [facility] Organisms seen [facility] Wet Prep Few WBC per high-power [facility] Wet Prep No Red blood cells [facility] Wet Prep Moderate Epithelial [facility] cells present [facility] Specimen Fluid - CERVIX Performing Organization Address [facility] Phone Number [facility] CLIA: [id number], [address] [place] [address] URINALYSIS (07/01/2019 10:50 PM FAVOR MAKER) APPEARANCE Clear Clear [facility] COLOR Straw (A) Yellow [facility] PH 7.0 4.8 - 8.0 [facility] SP GRAVITY 1.005 1.003 - 1.030 [facility] GLU U QUAL Normal Normal [facility] BLOOD 1+ (A) Negative [facility] KETONES Negative Negative [facility] PROTEIN Negative Negative [facility] UROBILIN Normal Normal [facility] BILIRUBIN Negative Negative [facility] NITRITE Negative Negative [facility] LEUK ANJELICA Negative Negative [facility] RBC/HPF 0 0 - 3 HPF [facility] WBC/HPF 2 0 - 5 HPF [facility] BACTERIA Few (A) Negative [facility] SQ EPITH 4 HPF [facility] Specimen Urine - URINE, CLEAN CATCH Performing Organization Address City/[facility] Phone Number [facility] CLIA: [id number], [address] [place] [address] [facility] documented in this encounter Insurance Payer Benefit Plan / Subscriber ID Effective Phone Address Type Group Dates SAMMY CHRISTIANSON xxxxxxxxx 2019-Pres [address] Medicaid HEALTHCARE - [place]CARE [place] [id number] MANAGED MEDICAID [place], [place]ID [place] documented as of this encounter
--- OUTSIDE RECORDS SUMMARY | 2019-07-10 22:26 | XMS REPORT | Summary of Care ---
:1995 Author Organization [facility] Address [address] [place] [address] Care Team Providers Name Role Phone [facility] Luke Baker Insurance Hmo Reason for Visit Auth/Cert Status Reason Specialty Diagnoses / Procedures Referred By Contact Referred To Contact Obstetrics Diagnoses abd pain [facility] Labor And Delivery [address] [place] [address] [place] [address] Encounter Details Date Type Department Care Team Description 07/04/2019 Hospital Encounter [facility] Labor and Delivery Cynthia Heath MD [address] [place] [address] [address] [place] [address] [place] [address] [phone] Allergies No Known Allergiesdocumented as of this encounter (statuses as of 07/05/2019) Medications Medication Sig Dispensed Refills Start Date [...] as of this encounter (statuses as of 07/05/2019) Active Problems Problem Noted Date IUGR (intrauterine [...] as of this encounter (statuses as of 07/05/2019) Resolved Problems Problem Noted Date Resolved Date 39 weeks gestation of 05/29/2019 05/30/2019 uterine contractions in second trimester, antepartum 05/14/201905/28 Candidiasis of vulva and vagina 03/30/2019 05/28/2019 documented as of this encounter (statuses as of 07/05/2019) Immunizations Name Administration Dates Next Due Influenza [...] Sign Reading Time Taken Comments Blood Pressure 133/82 07/04/2019 6:45 PM CALL CIRCUIT WORKER Pulse 97 07/04/2019 8:00 PM CALL CIRCUIT WORKER Temperature 36.9 C (98.5 F) 07/04/2019 6:45 PM CALL CIRCUIT WORKER Respiratory Rate 18 07/04/2019 8:00 PM CALL CIRCUIT WORKER Oxygen Saturation 100% 07/04/2019 8:00 PM CALL CIRCUIT WORKER Inhaled Oxygen Concentration - - Weight 59.2 kg (130 lb 9.6 oz) 07/04/2019 6:45 PM CALL CIRCUIT WORKER Height 154.9 cm (5' 1") 07/04/2019 6:45 PM CALL CIRCUIT WORKER Body Mass Index 24.68 07/04/2019 6:45 PM CALL CIRCUIT WORKER documented in this encounter Discharge Instructions Hattie Lawson RN - 07/04/2019Take Tums as directed for heartburn Eat a clear liquid diet and advance to full liquid as tolerated Take Metamucil as directed to promote regular bowel movement Take Stool softener tables if needed to pass stool easily Eat a healthy balanced diet with adequate amounts of water during the day. Labor (36 weeks and before): 1. Drink [...] brown spotting after a vaginal exam. 2. [place], light red and brownish spotting is not [...] hours apart. 2. Do not take any ergn-xlb-xltvbdn medications for an illness unless you have [...] that wont go away, even after taking gzey-opb-wdsrlbe medicines as instructed by your care provider. 4. Changes in vision, including blurry vision, a sensation of flashing lights or spots, or temporaryloss of vision. 5. Severe pain or tenderness in your upper stomach area. This may include nausea and vomiting. 6. READ ALL HANDOUTS PROVIDED AttachmentsThe following attachments cannot be sent through Care Everywhere.Psyllium granules or powder for solution ([place]), Healthy Eating Habits During ([place]izen [place])Calcium Carbonate chewable tablets ([place]) Docusate capsules ([place])documented in this encounter Plan of Treatment Date Type Specialty Care Team Description 07/06/2019 Routine OB Satellites Shelby Taylor, Visit [facility] [address] [place], [place] [address] 08/03/2019 Hospital Encounter Obstetrics Fiorella Ni MD [address] [place] [address] 08/03/2019 Surgery Surgery Faculty, Ob SECTION [address] [place] [address] Health Maintenance Due Date Last Done Comments [...] Procedure Name Priority Date/Time Associated Diagnosis Comments NOTICE OF PRIVACY Routine 07/04/2019 6:53 PM PRACTICES CALL CIRCUIT WORKER CONSENT/REFUSAL FOR Routine 07/04/2019 6:52 PM DIAGNOSIS AND TREATMENT CALL CIRCUIT WORKER ASSIGNMENT OF BENEFITS Routine 07/04/2019 6:51 PM CALL CIRCUIT WORKER documented in this encounter Results Not on filedocumented in this encounter Insurance Payer Benefit Plan / Subscriber ID Effective Phone Address Type Group Dates SAMMY CHRISTIANSON xxxxxxxxx 2019-Pres [address] Medicaid HEALTHCARE - HEALTHCARE [place] [id number] MANAGED MEDICAID [place], [place] documented as of this encounter
--- OUTSIDE RECORDS SUMMARY | 2019-07-10 22:26 | XMS REPORT | Summary of Care ---
:1995 Author Organization [facility] - Health Address [address] [place] [address] Care Team Providers Name Role Phone [place] Taylor [facility] Primary Care Provider Luke Baker Insurance Hmo Encounter Details Date Type Department Care Team Description 07/01/2019 Orders Only [facility] Doctor Unassigned, No [address] [facility] [place] [address] [address] [place] [address] Allergies No Known Allergiesdocumented as of this encounter (statuses as of 07/01/2019) Medications Medication Sig Dispensed Refills Start Date [...] as of this encounter (statuses as of 07/01/2019) Active Problems Problem Noted Date IUGR (intrauterine [...] as of this encounter (statuses as of 07/01/2019) Resolved Problems Problem Noted Date Resolved Date 39 weeks gestation of 05/29/2019 05/30/2019 uterine contractions in second trimester, antepartum 05/14/201905/28 Candidiasis of vulva and vagina 03/30/2019 05/28/2019 documented as of this encounter (statuses as of 07/01/2019) Immunizations Name Administration Dates Next Due Influenza [...] 07/09/2019 Routine OB Satellites [place] Taylor, Visit [facility] [address] [place], [place] [address] 08/03/2019 Hospital Encounter Obstetrics Fiorella Ni MD [address] [place] [address] 08/03/2019 Surgery Surgery Faculty, Ob SECTION [address] [place] [address] Health Maintenance Due Date Last Done Comments [...] Procedure Name Priority Date/Time Associated Diagnosis Comments ASSIGNMENT OF BENEFITS Routine 07/01/2019 9:49 PM LIVE GAMES DEALER documented in this encounter Results Not on filedocumented in this encounter Insurance Payer Benefit Plan / Subscriber ID Effective Phone Address Type Group Dates SAMMY CHRISTIANSON xxxxxxxxx 2019-Pres Alisson RYAN Medicaid HEALTHCARE - HEALTHCARE [place] [id number] MANAGED MEDICAID [place], [place] documented as of this encounter
--- OUTSIDE RECORDS SUMMARY | 2019-07-10 22:26 | XMS REPORT | Summary of Care ---
:[address] [facility] Address [address] [place] [address] Care Team Providers Name Role Phone [place] Taylor [facility] Primary Care Provider Luke Baker Insurance Hmo Reason for Visit Auth/Cert Status Reason Specialty Diagnoses / Procedures Referred By Contact Referred To Contact Obstetrics [facility] Labor And Delivery [address] [place] [address] [place] [address] Encounter Details Date Type Department Care Team Description 06/09/2019 Hospital Encounter [facility] Labor and Delivery Shelia Quiñonez MD [address] [place] [address] [address] [place], [place] [id number] Allergies No Known Allergiesdocumented as of this encounter (statuses as of 06/09/2019) Medications Medication Sig Dispensed Refills Start Date [...] of 06/09/2019) Active Problems Problem Noted Date Pain of [...] Sign Reading Time Taken Comments Blood Pressure 115/72 06/09/2019 7:11 PM TACTICAL DEBRIEFER Pulse 110 06/09/2019 8:00 PM TACTICAL DEBRIEFER Temperature 36.8 C (98.3 F) 06/09/2019 7:11 PM TACTICAL DEBRIEFER Respiratory Rate 18 06/09/2019 7:11 PM TACTICAL DEBRIEFER Oxygen Saturation 100% 06/09/2019 8:00 PM TACTICAL DEBRIEFER Inhaled Oxygen Concentration - - Weight 57.6 kg (127 lb) 06/09/2019 7:11 PM TACTICAL DEBRIEFER Height 154.9 cm (5' 1") 06/09/2019 7:11 PM TACTICAL DEBRIEFER Body Mass Index 24 06/09/2019 7:11 PM TACTICAL DEBRIEFER documented in this encounter Discharge Instructions Mary Kate Quinonez RN - 06/09/2019Preterm Labor (36 weeks and before): 1. Drink [...] brown spotting after a vaginal exam. 2. [place], light red and brownish spotting is not [...] hours apart. 2. Do not take any ldwv-shh-axmxtes medications for an illness unless you have [...] that wont go away, even after taking yben-kls-xabzwoo medicines as instructed by your care provider. 4. Changes in vision, including blurry vision, a sensation of flashing lights or spots, or temporaryloss of vision. 5. Severe pain or tenderness in your upper stomach area. This may include nausea and vomiting. 6. documented in this encounter Plan of Treatment Date Type Specialty Care Team Description 06/11/2019 Nurse Visit OB Satellites Visit, Elvni Nurse 06/18/2019 Routine OB Satellites Risk, Visit Wll-Wtkjg-Zr/High 08/03/2019 Hospital Encounter Obstetrics Fiorella Ni MD [address] [place] [address] 08/03/2019 Surgery Surgery Faculty, Ob SECTION [address] [place] [address] Health Maintenance Due Date Last Done Comments [...] Associated Diagnosis Comments ASSIGNMENT OF BENEFITS Routine 06/09/2019 6:51 PM TACTICAL DEBRIEFER CONSENT/REFUSAL FOR Routine 06/09/2019 6:50 PM DIAGNOSIS AND TREATMENT TACTICAL DEBRIEFER documented in this encounter Results Not on filedocumented in this encounter Insurance Payer Benefit Plan / Subscriber ID Effective Phone Address Type Group Dates SAMMY BAZANINA xxxxxxxxx 2019-Pres [address] Medicaid HEALTHCARE - [place]ARE [place] [id number] MANAGED MEDICAID [place] documented as of this encounter
--- OUTSIDE RECORDS SUMMARY | 2019-07-10 22:26 | XMS REPORT | Summary of Care ---
:1995 Author Organization [facility] Address [address] [place] [address] Care Team Providers Name Role Phone [place] Taylor [facility] Primary Care Provider Luke Baker Insurance Hmo Reason for Visit Reason Comments NURSE VISIT Encounter Details Date Type Department Care Team Description 06/30/2019 Nurse Visit [facility] [place] Taylor, [facility] [address] [place] [address] History of [place] Visit, [facility] Nurse delivery (Primary Dx) [address] [place] [address] Allergies No Known Allergiesdocumented as [...] History of delivery 02/06/2019 Overview: History of alysa inj History of section 02/06/2019 History of [...] year old female in clinic today for Alysa progesterone injection. 250 mg administered IM to [...] 07/09/2019 Routine OB Satellites [place] Taylor, Visit [facility] [address] [place] [address] [phone] 08/03/2019 Hospital Encounter Obstetrics Fiorella Ni MD [address] [place] [address] 08/03/2019 Surgery Surgery Faculty, Ob SECTION [address] [place] [address] Health Maintenance Due Date Last Done Comments [...] delivery - Primary documented in this encounter Insurance Payer Benefit Plan / Subscriber ID Effective Phone Address Type Group Dates SAMMY CHRISTIANSON xxxxxxxxx 2019-Pres [address] Medicaid HEALTHCARE - HEALTHCARE [place] [id number] MANAGED MEDICAID [place] documented as of this encounter
--- OUTSIDE RECORDS SUMMARY | 2019-07-10 22:27 | XMS REPORT | Summary of Care ---
:1995 Author Organization [facility] Address [address] [place] [address] Care Team Providers Name Role Phone [place] [facility] Provider Luke Baker Insurance Hmo Reason for Visit Reason Comments Refill Request Encounter Details Date Type Department Care Team Description 07/06/2019 Refill [facility] Doctor Unassigned, No Refill Request [address] [place] [address] [place] [address] [place] [address] Allergies No Known Allergiesdocumented as of this encounter (statuses as of 07/07/2019) Medications Medication Sig Dispensed Refills Start Date [...] during times daily. in third trimester, antepartum cyclobenzaprine 5 mg Take 1 tablet by 21 tablet 0 07/06/2019 Active tabletIndications: mouth 3 (three) 0 Back pain in times daily for 7 days. famotidine (PEPCID) 20 Take 1 tablet by 60 tablet 0 07/06/2019 Active mg tabletIndications: mouth 2 (two) Heartburn during times daily. in third trimester documented as of this encounter (statuses as of 07/07/2019) Active Problems Problem Noted Date IUGR (intrauterine [...] as of this encounter (statuses as of 07/07/2019) Resolved Problems Problem Noted Date Resolved Date 39 weeks gestation of 05/29/2019 05/30/2019 uterine contractions in second trimester, antepartum 05/14/201905/28 Candidiasis of vulva and vagina 03/30/2019 05/28/2019 documented as of this encounter (statuses as of 07/07/2019) Immunizations Name Administration Dates Next Due Influenza [...] Treatment Date Type Specialty Care Team Description 07/13/2019 Routine OB Satellites [place] Taylor, Visit [facility] [address] [place] [address] [phone] 08/03/2019 Hospital Encounter Obstetrics Fiorella Ni MD [address] [place] [address] 08/03/2019 Surgery Surgery Faculty, Ob SECTION [address] [place] [address] Health Maintenance Due Date Last Done Comments [...] filedocumented in this encounter Visit Diagnoses Diagnosis Supervision of high risk , antepartum Nausea and vomiting during documented in this encounter Insurance Payer Benefit Plan / Subscriber ID Effective Phone Address Type Group Dates SAMMY CHRISTIANSON xxxxxxxxx 2019-Pres Alisson RYAN Medicaid HEALTHCARE - [place]CARE [place] [id number] MANAGED MEDICAID [place] documented as of this encounter
--- OUTSIDE RECORDS SUMMARY | 2019-07-10 22:27 | XMS REPORT | Summary of Care ---
:1995 Author Organization [facility] Address [address] [place] [address] Care Team Providers Name Role Phone [place] [facility] Provider Luke Baker Insurance Hmo Reason for Visit Reason Comments Care Encounter Details Date Type Department Care Team Description 07/06/2019 Routine [facility], Supervision of high risk , antepartum (Primary Dx); Visit Maurice Lopez BETTY Multiparity; [address] History of section; [facility] History of ; [address] MARIA LUISA A History of delivery; [phone] [place], [place] IUGR (intrauterine growth restriction) affecting care of mother, third trimester, fetus 1; [address] Back pain in ; [phone] Heartburn during in third trimester Allergies No Known Allergiesdocumented as of this encounter (statuses as of 07/06/2019) Medications Medication Sig Dispensed Refills Start Date [...] as of this encounter (statuses as of 07/06/2019) Active Problems Problem Noted Date IUGR (intrauterine [...] as of this encounter (statuses as of 07/06/2019) Resolved Problems Problem Noted Date Resolved Date 39 weeks gestation of 05/29/2019 05/30/2019 uterine contractions in second trimester, antepartum 05/14/201905/28 Candidiasis of vulva and vagina 03/30/2019 05/28/2019 documented as of this encounter (statuses as of 07/06/2019) Immunizations Name Administration Dates Next Due Influenza [...] Sign Reading Time Taken Comments Blood Pressure 121/78 07/06/2019 12:59 PM MEDICAL STAFF SERVICES MANAGER Pulse 110 07/06/2019 12:59 PM MEDICAL STAFF SERVICES MANAGER Temperature 36.2 C (97.2 F) 07/06/2019 12:59 PM MEDICAL STAFF SERVICES MANAGER Respiratory Rate 16 07/06/2019 12:59 PM MEDICAL STAFF SERVICES MANAGER Oxygen Saturation - - Inhaled Oxygen Concentration - - Weight 59.1 kg (130 lb 4 oz) 07/06/2019 12:59 PM MEDICAL STAFF SERVICES MANAGER Height 154.9 cm (5' 1") 07/06/2019 12:59 PM MEDICAL STAFF SERVICES MANAGER Body Mass Index 24.61 07/06/2019 12:59 PM MEDICAL STAFF SERVICES MANAGER documented in this encounter Progress Notes Zuleyma Degroot RN - 07/06/2019 1:00 PM CST24 year old female in clinic today for Frederick progesterone injection. 250 mg administered IM toleft gluteus- see MAR entry. Witnessed by Trupti Julio RN. Medication supplied by outside pharmacy. Pt tolerated injection well, warning signs discussed with her at this time. Pt instructed to RTC 1 wk for next dose or PRN. Pt verbalized understanding. ZULEYMA DEGROOT RN 07/06/2019 1:49 PM [place] Dennison BETTY - 07/06/2019 1:00 PM CST Chief complaint: Chief Complaint Patient presents with Care HPI CC: Follow Up Visit Natanael Dyson is a 24 year old, , /White female. Patient's last menstrual period was 11/02/2018. She is 35w1d with an intrauterine . Her estimated date of delivery is 08/09/2019, by Last Menstrual Period. She has no complaints today. She reports +FM and denies contractions, LOF [...] (2.438 kg) F , V ALEJANDRO Comments: [place] during this 1 05/12/13 30w0d 5 lb [...] file Gets together: Not on file Attends yazdanism service: Not on file Active member of [...] Comment: Last intercourse: 01/16/2019 Labs No new labs, Labs are pending. and Admission on 07/01/2019, Discharged on 07/02/2019 Component Date Value APPEARANCE 07/01/2019 Clear COLOR 07/01/2019 Straw* PH 07/01/2019 7.0 SP GRAVITY 07/01/2019 1.005 GLU U QUAL 07/01/2019 Normal BLOOD 07/01/2019 1+* KETONES 07/01/2019 Negative PROTEIN 07/01/2019 Negative UROBILIN 07/01/2019 Normal BILIRUBIN 07/01/2019 Negative NITRITE 07/01/2019 Negative LEUK ANJELICA 07/01/2019 Negative RBC/HPF 07/01/2019 0 WBC/HPF 07/01/2019 2 BACTERIA 07/01/2019 Few* SQ EPITH 07/01/2019 4 URINE CULTURE 07/01/2019 > 100,000 CFU/mL mixed aerobic organisms - suggests endogenous microbial contamination Wet Prep 07/01/2019 No Trichomonas vaginalis present Wet Prep 07/01/2019 No Yeast Wet Prep 07/01/2019 No Clue cells present Wet Prep 07/01/2019 Occasional (Rare) Organisms seen Wet Prep 07/01/2019 Few WBC per high-power field Wet Prep 07/01/2019 No Red blood cells Wet Prep 07/01/2019 Moderate Epithelial cells present Fern Test 07/01/2019 Negative Routine Visit on 06/25/2019 Component Date Value POCT U SP GRAV 06/25/2019 . POCT PH U 06/25/2019 8 POCT U LEUK EST 06/25/2019 negative POCT U NIT 06/25/2019 negative POCT U PROT 06/25/2019 trace POCT U GLU 06/25/2019 negative POCT U KETONE 06/25/2019 negative POCT U UROBILI 06/25/2019 . POCT U BILI 06/25/2019 . POCT U BLD 06/25/2019 negative Routine Visit on 06/23/2019 Component Date Value POCT U SP GRAV 06/23/2019 1,020* POCT PH U 06/23/2019 7 POCT U LEUK EST 06/23/2019 trace POCT U NIT 06/23/2019 neg POCT U PROT 06/23/2019 trace POCT U GLU 06/23/2019 neg POCT U KETONE 06/23/2019 neg POCT U UROBILI 06/23/2019 8* POCT U BILI 06/23/2019 neg POCT U BLD 06/23/2019 trace POCT INFLUENZA A 06/23/2019 neg POCT INFLUENZA B 06/23/2019 neg POCT GP A STREP 06/23/2019 neg Admission on 06/22/2019, Discharged on 06/22/2019 Component Date Value NA 06/22/2019 136 K 06/22/2019 3.7 CL 06/22/2019 108 CO2 TOTAL 06/22/2019 21* AGAP 06/22/2019 7 BUN 06/22/2019 8 GLUCOSE 06/22/2019 91 CREATININE 06/22/2019 0.45* TOTAL BILI 06/22/2019 0.5 CALCIUM 06/22/2019 8.6 T PROTEIN 06/22/2019 6.8 ALBUMIN 06/22/2019 3.8 ALK PHOS 06/22/2019 121 ALTv 06/22/2019 10 AST(SGOT) 06/22/2019 22 eGFR Calculation (Non-Af* 06/22/2019 171.2 eGFR Calculation (Justine* 06/22/2019 207.5 MARTY 06/22/2019 72 LIPASE 06/22/2019 32 APPEARANCE 06/22/2019 Clear COLOR 06/22/2019 Yellow PH 06/22/2019 6.0 SP GRAVITY 06/22/2019 1.021 GLU U QUAL 06/22/2019 50 mg/dL* BLOOD 06/22/2019 Negative KETONES 06/22/2019 5 mg/dL* PROTEIN 06/22/2019 Negative UROBILIN 06/22/2019 2.0 mg/dL* BILIRUBIN 06/22/2019 Negative NITRITE 06/22/2019 Negative LEUK ANJELICA 06/22/2019 Negative RBC/HPF 06/22/2019 17* WBC/HPF 06/22/2019 1 BACTERIA 06/22/2019 Few* MUCOUS 06/22/2019 Moderate* SQ EPITH 06/22/2019 3 URINE CULTURE 06/22/2019 No aerobic growth (< 1000 CFU/mL) WBC 06/22/2019 11.42* RBC 06/22/2019 3.63* HGB 06/22/2019 10.5* HCT 06/22/2019 31.1* MCV 06/22/2019 85.7 MCH 06/22/2019 28.9 MCHC 06/22/2019 33.8 RDW-SD 06/22/2019 43.0 RDW-CV 06/22/2019 13.9 PLT 06/22/2019 258 MPV 06/22/2019 10.1 NRBC/100 WBC 06/22/2019 0.0 NRBC x10^3 06/22/2019 <0.01 GRAN MAT (NEUT) % 06/22/2019 69.4 IMM GRAN % 06/22/2019 2.30 LYMPH % 06/22/2019 21.0 MONO % 06/22/2019 5.2 EOS % 06/22/2019 1.7 BASO % 06/22/2019 0.4 GRAN MAT x10^3(ANC) 06/22/2019 7.94* IMM GRAN x10^3 06/22/2019 0.26* LYMPH x10^3 06/22/2019 2.40 MONO x10^3 06/22/2019 0.59 EOS x10^3 06/22/2019 0.19 BASO x10^3 06/22/2019 0.04 Admission on 06/17/2019, Discharged on 06/17/2019 Component Date Value Fern Test 06/17/2019 Negative Wet Prep 06/17/2019 No Trichomonas vaginalis present Wet Prep 06/17/2019 No Yeast Wet Prep 06/17/2019 Occasional (Rare) Clue cells present Wet Prep 06/17/2019 Occasional (Rare) Epithelial cells Wet Prep 06/17/2019 Occasional (Rare) WBC per high-power field Wet Prep 06/17/2019 Occasional (Rare) Red blood cells Wet Prep 06/17/2019 Occasional (Rare) Organisms seen C. trachomatis Nucleic A* 06/17/2019 Negative N. gonorrhoeae Nucleic A* 06/17/2019 Negative Fern Test 06/17/2019 Negative Admission on 06/13/2019, Discharged on 06/13/2019 Component Date Value APPEARANCE 06/13/2019 Hazy* COLOR 06/13/2019 Yellow PH 06/13/2019 7.0 SP GRAVITY 06/13/2019 1.006 GLU U QUAL 06/13/2019 Normal BLOOD 06/13/2019 Negative KETONES 06/13/2019 Negative PROTEIN 06/13/2019 Negative UROBILIN 06/13/2019 Normal BILIRUBIN 06/13/2019 Negative NITRITE 06/13/2019 Negative LEUK ANJELICA 06/13/2019 75/uL* RBC/HPF 06/13/2019 5* WBC/HPF 06/13/2019 2 BACTERIA 06/13/2019 Moderate* MUCOUS 06/13/2019 Slight* SQ EPITH 06/13/2019 11 Routine Visit on 06/04/2019 Component Date Value POCT PH U 06/04/2019 7 POCT U LEUK EST 06/04/2019 neg POCT U NIT 06/04/2019 neg POCT U PROT 06/04/2019 trace POCT U GLU 06/04/2019 neg POCT U KETONE 06/04/2019 neg POCT U BLD 06/04/2019 neg Admission on 05/30/2019, Discharged on 05/31/2019 Component [...] 05/28/2019 . POCT U BLD 05/28/2019 . There may be more visits with results that are not included. Radiology No new radiology. Allergies Natanael has No Known Allergies. Medications Natanael has a current medication list which includes the following prescription(s) : albuterol, calciumcarbonate, promethazine, bupropion sr, buspirone, cyclobenzaprine, ascorbic acid (vitamin c), ferrous sulfate, famotidine, hydroxyprogest(pf)(preg presv), and pnv 67-iron ps-folate no.1-dha. Review of Systems Constitutional: Negative. HENT: Negative. Eyes: Negative. Respiratory: Negative. Breasts: Negative. Cardiovascular: Negative. Gastrointestinal: Negative. Genitourinary: Negative. Musculoskeletal: Negative. Skin: Negative. Neurological: Negative. Psychiatric/Behavioral: Negative. Endocrine: Endocrine negative BP 121/78 (BP Location: Right arm, Patient Position: Sitting, BP CUFF SIZE: Adult Medium) | Pulse 110 | Temp 36.2 C (97.2 F) (Oral) | Resp 16 | Ht 5 ' 1" (1.549 m) | Wt 130 lb 4 oz (59.1 kg) |LMP 11/02/2018 | BMI 24.61 kg/m Pregravid BMI: Could not be calculated Physical Exam PHYSICAL: General Exam: Neurological: Normal Abdomen: Normal gravid Extremities: Normal Pelvic Exam: Uterus: 33 Weeks Assessment/Plan Return to clinic in 1 weeks. Denies zika virus risk, signs and symptoms such as fever,rash,joint pain, conjunctivitis (red eyes),muscle pain, headaches; outside [place] travel to areas affected by zika, and FOB exposure to zika. Educated on use of mosquito repellent. Supervision of high risk , antepartum (primary encounter diagnosis) Multiparity History of section History of Comment: routine Plan: POCT URINALYSIS W SPECIFIC GRAVITY History of delivery Comment: on frederick Plan: as needed mgmt Back pain in Comment: reports Plan: medication sent to pharmacy Heartburn Comment: reports Plan: meds sent to pharmacy on file This visit did not involve counseling and coordination that comprised more than 50% of the visit time. EARNEST Nova 07/06/2019 1:42 PM documented in this encounter Plan of Treatment Date Type Specialty Care Team Description 07/13/2019 Routine OB Satellites [place] Taylor, Visit [facility] [address] [place] [address] [phone] 08/03/2019 Hospital Encounter Obstetrics Fiorella Ni MD [address] [place] [address] 08/03/2019 Surgery Surgery Faculty, Ob SECTION [address] [place] [address] Health Maintenance Due Date Last Done Comments [...] Date/Time Associated Diagnosis Comments POCT URINALYSIS Routine 07/06/2019 1:00 PM Supervision of high Results for this MEDICAL STAFF SERVICES MANAGER risk , procedure are in antepartum the results section. documented in this encounter Results POCT URINALYSIS W SPECIFIC GRAVITY (07/06/2019 1:00 PM MEDICAL STAFF SERVICES MANAGER) POCT U SP GRAV . 1.005 - 1.025 mg/dl POCT PH U . 5 - 8 mg/dl POCT U LEUK EST . Negative - Negative POCT U NIT . Negative - Negative POCT U PROT Trace Negative - Negative POCT U GLU Neg Negative - Negative POCT U KETONE . Negative - Negative POCT U UROBILI . 0.2 - 1 mg/dl POCT U BILI . Negative - Negative POCT U BLD . Negative - Negative POCT U COLOR POCT U APPEAR Specimen Urine - URINE, CLEAN CATCH documented in this encounter Visit Diagnoses Diagnosis Supervision of high risk , antepartum - Primary Multiparity History of section Other postprocedural status History of Previous delivery, delivered, with or without mention of antepartum condition History of delivery IUGR (intrauterine growth restriction) affecting care of mother, third trimester, fetus 1 Back pain in Other specified complication of , unspecified as to episode of care Heartburn during in third trimester documented in this encounter Administered Medications Medication Order MAR Action Action Date Dose Rate Site HYDROXYprogest(PF)(preg Given 07/06/2019 1:49 PM 250 mg Left presv) (FREDERICK) 250 MEDICAL STAFF SERVICES MANAGER Dorsogluteal-IM mg/mL (1 mL) injection 250 mg 250 mg, Intramuscular, QWEEKLY, 14 doses, First dose on Kathie 03/05/19 at 1415, Last dose on Kathie 06/04/19 at 1415, Routine Given 06/30/2019 3:47 PM MEDICAL STAFF SERVICES MANAGER 250 mg Right Dorsogluteal-IM Given 06/23/2019 9:24 AM MEDICAL STAFF SERVICES MANAGER 250 mg Left Dorsogluteal-IM documented in this encounter Insurance Payer Benefit Plan / Subscriber ID Effective Phone Address Type Group Dates SAMMY CHRISTIANSON xxxxxxxxx 2019-Pres [address] Medicaid HEALTHCARE - HEALTHCARE [place] [id number] MANAGED MEDICAID [place], [place] documented as of this encounter
--- OUTSIDE RECORDS SUMMARY | 2019-07-10 22:27 | XMS REPORT | Summary of Care ---
:1995 Author Organization [facility] Address [address] [place] [address] Care Team Providers Name Role Phone [place] [facility] Primary [facility] Provider Luke Baker Insurance Hmo Encounter Details Date Type Department Care Team Description 06/12/2019 Patient Secure Ms [facility] Doctor Unassigned, [address] [place] [address] [place] [address] [place] [address] [place] [address] Allergies No Known Allergiesdocumented as of this [...] 07/13/2019 Routine OB Satellites [place] Taylor, Visit [facility] [address] [place] [address] [phone] 08/03/2019 Hospital Encounter Obstetrics Fiorella Ni MD [address] [place] [address] [phone] 08/03/2019 Surgery Surgery Faculty, Ob SECTION [address] [place] [address], [place] [address] Health Maintenance Due Date Last Done Comments [...] Alisson RYAN Medicaid HEALTHCARE - HEALTHCARE [place] [id number] MANAGED MEDICAID [place] documented as of this encounter
--- OUTSIDE RECORDS SUMMARY | 2019-07-10 22:27 | XMS REPORT | Summary of Care ---
:[address] [facility] Address [address] [place] [address] Care Team Providers Name Role Phone [facility] Luke Baker Insurance Hmo Reason for Visit Reason Comments Refill Request Encounter Details Date Type Department Care Team Description 07/06/2019 Refill [facility] Doctor Unassigned, No Refill Request [address] [place] [address] [place] [address] [place] [address] Allergies No Known Allergiesdocumented as of this [...] 07/13/2019 Routine OB Satellites Shelby Taylor, Visit [facility] [address] [place] [address] [phone] 08/03/2019 Hospital Encounter Obstetrics Fiorella Ni MD [address] [place] [address] [phone] 08/03/2019 Surgery Surgery Faculty, Ob SECTION [address] [place] [address] Health Maintenance Due Date Last Done Comments [...] filedocumented in this encounter Visit Diagnoses Diagnosis Back pain affecting in third trimester documented in this encounter Insurance Payer Benefit Plan / Subscriber ID Effective Phone Address Type Group Dates SAMMY CHRISTIANSON xxxxxxxxx 2019-Pres Alisson RYAN Medicaid HEALTHCARE - HEALTHCARE ent [id number] MANAGED MEDICAID [place], [place] documented as of this encounter
[2019-07-10 22:38] VITALS: TEMP 98.6
[2019-07-10 22:40] VITALS: BP 105/75; O2SAT 99
== END 2019-07-10 21:44 | disposition home or self-care (01) ==
LOC: ER 19:12
DX: R51 Headache (principal)
CPT/HCPCS: 87070; 87081; 87804; 99283

== ENCOUNTER 2019-07-29 09:30 | Emergency (ER) | payer MEDICAID ==
--- OUTSIDE RECORDS SUMMARY | 2019-07-29 09:33 | XMS REPORT ---
:1995 [facility] Address [address] [place] [address] Dr. Ferguson [address] [place] [address] Care Team Providers Name Role Phone Unavailable Unavailable Unavailable Problems This patient has no known problems. Allergies, Adverse Reactions, Alerts This patient has no known allergies or adverse reactions. Medications This patient has no known medications.
--- OUTSIDE RECORDS SUMMARY | 2019-07-29 09:44 | XMS REPORT | Summary of Care ---
:1995 Author Organization [facility] Address [address] [place] [address] Care Team Providers Name Role Phone Shelby [facility] Primary Care Provider Luke Baker Insurance Hmo Reason for Visit Reason Comments Care Encounter Details Date Type Department Care Team Description 07/13[facility]2019 [facility], Supervision of high risk , antepartum (Primary Dx); Visit Maurice Lopez BETTY Multiparity; [address] History of delivery; [facility] History of section; [address] MARIA LUISA A History of ; [phone] [place], [place] Previous delivery affecting , antepartum [address] Allergies Active Allergy Reactions Severity Noted Date Comments Metoclopramide Hcl Anxiety 07/12/2019 Patient says she gets figity, angry and mean documented as of this encounter (statuses as of 07/13/2019) Medications Medication Sig Dispensed Refills Start Date End Date Status PNV 67-iron ps-folate Take 1 Each by 30 capsule 9 02/06/2019 Active no.1-dha (VITAFOL mouth daily. ULTRA) 29 mg iron- 1 mg-200 mg CapIndications: Supervision of high risk , antepartum famotidine 40 mg Take 1 tablet 30 tablet 3 05/08/2019 Active tabletIndications: by mouth daily. Gastroesophageal reflux in ferrous sulfate 325 mg Take 1 tablet 120 tablet 6 05/11/2019 Active (65 mg iron) by mouth 2 tabletIndications: (two) times Anemia of mother in daily. , antepartum ascorbic acid, vitamin Take 1 tablet 90 tablet 6 05/11/2019 Active C, 500 mg by mouth 3 tabletIndications: (three) times Anemia of mother in daily. , antepartum proMETHazine 25 mg Take 1 tablet 30 tablet 0 05/25/2019 Active tabletIndications: by mouth every Nausea and vomiting 6 (six) hours during as needed for Nausea and Vomiting (N/V). calcium carbonate 500 Take 1 tablet 90 tablet 0 05/25/2019 Active mg calcium (1,250 mg) by mouth 3 tabletIndications: Leg (three) times cramps in daily with meals. ALBUTEROL 90 INHALE 2 PUFFS 7 Each 3 05/26/2019 Active mcg/actuation BY MOUTH EVERY inhalerIndications: 6 HOURS Asthma affecting NEEDED FOR in second WHEEZING FOR trimester SHORTNESS OF BREATH cyclobenzaprine 10 mg Take 1 tablet 90 tablet 0 05/21/2019 Active tabletIndications: Back by mouth 3 pain affecting (three) times in third daily as needed trimester for Muscle Spasms. buPROPion SR Take 1 tablet 60 tablet 3 05/21/2019 Active (WELLBUTRIN SR) 150 mg by mouth 2 SR tabletIndications: (two) times Depression affecting daily. in third trimester, antepartum busPIRone 10 mg Take 1 tablet 90 tablet 3 05/21/2019 Active tabletIndications: by mouth 3 Anxiety during (three) times in third daily. trimester, antepartum cyclobenzaprine 5 mg Take 1 tablet 21 tablet 0 07/06/2019 07/13/2019 Active tabletIndications: Back by mouth 3 pain in (three) times daily for 7 days. famotidine (PEPCID) 20 Take 1 tablet 60 tablet 0 07/06/2019 Active mg tabletIndications: by mouth 2 Heartburn during (two) times in third daily. trimester documented as of this encounter (statuses as of 07/13/2019) Active Problems Problem Noted Date IUGR (intrauterine [...] as of this encounter (statuses as of 07/13/2019) Resolved Problems Problem Noted Date Resolved Date 39 weeks gestation of 05/29/2019 05/30/2019 uterine contractions in second trimester, antepartum 05/14/201905/28 Candidiasis of vulva and vagina 03/30/2019 05/28/2019 documented as of this encounter (statuses as of 07/13/2019) Immunizations Name Administration Dates Next Due Influenza [...] Sign Reading Time Taken Comments Blood Pressure 105/73 07/13/2019 8:34 AM INFO PRINT PRESS OPERATOR Pulse 82 07/13/2019 8:34 AM INFO PRINT PRESS OPERATOR Temperature 36.2 C (97.1 F) 07/13/2019 8:34 AM INFO PRINT PRESS OPERATOR Respiratory Rate 16 07/13/2019 8:34 AM INFO PRINT PRESS OPERATOR Oxygen Saturation - - Inhaled Oxygen Concentration - - Weight 60.9 kg (134 lb 4 oz) 07/13/2019 8:34 AM INFO PRINT PRESS OPERATOR Height 154.9 cm (5' 1") 07/13/2019 8:34 AM INFO PRINT PRESS OPERATOR Body Mass Index 25.37 07/13/2019 8:34 AM INFO PRINT PRESS OPERATOR documented in this encounter Progress Notes Shelby Taylor, WHCNP - 07/13/2019 8:00 AM CST Chief complaint: Chief Complaint Patient presents with Care HPI CC: Follow Up Visit Natanael Dyson is a 24 year old, , /White female. Patient's last menstrual period was 11/02/2018. She is 36w1d with an intrauterine . Her estimated date [...] (2.438 kg) F , V ALEJANDRO Comments: [place] during this 1 05/12/13 30w0d 5 lb [...] file Gets together: Not on file Attends zoroastrian service: Not on file Active member of [...] Labs No new labs and Admission on 07/12/2019, Discharged on 07/12/2019 Component Date Value Fern Test 07/12/2019 Negative Wet Prep 07/12/2019 No Fungal elements seen Wet Prep 07/12/2019 No Yeast Wet Prep 07/12/2019 No Trichomonas vaginalis present Wet Prep 07/12/2019 Few WBC per high-power field Wet Prep 07/12/2019 Few Clue cells present Wet Prep 07/12/2019 Numerous Epithelial cells Routine Visit on 07/06/2019 Component Date Value POCT U SP GRAV 07/06/2019 . POCT PH U 07/06/2019 . POCT U LEUK EST 07/06/2019 . POCT U NIT 07/06/2019 . POCT U PROT 07/06/2019 Trace POCT U GLU 07/06/2019 Neg POCT U KETONE 07/06/2019 . POCT U UROBILI 07/06/2019 . POCT U BILI 07/06/2019 . POCT U BLD 07/06/2019 . Admission on 07/01/2019, Discharged on 07/02/2019 Component [...] RH 05/30/2019 A POSITIVE IAT 05/30/2019 Negative There may be more visits with results that are not included. Radiology No new radiology. Allergies Natanael is allergic to reglan [metoclopramide hcl]. Medications Natanael has a current medication list which includes the following prescription(s) : cyclobenzaprine, famotidine, albuterol, calcium carbonate, promethazine, bupropion sr, buspirone, cyclobenzaprine, ascorbic acid (vitamin c), ferrous sulfate, famotidine, and pnv 67-iron ps-folate no.1-dha. Review of Systems Constitutional: Negative. HENT: Negative. Eyes: Negative. Respiratory: Negative. Breasts: Negative. Cardiovascular: Negative. Gastrointestinal: Negative. Genitourinary: Negative. Musculoskeletal: Negative. Skin: Negative. Neurological: Negative. Psychiatric/Behavioral: Negative. Endocrine: Endocrine negative BP 105/73 (BP Location: Right arm, Patient Position: Sitting, BP CUFF SIZE: Adult Medium) | Pulse 82 | Temp 36.2 C (97.1 F) (Oral) | Resp 16 | Ht 5 ' 1" (1.549 m) | Wt 134 lb 4 oz (60.9 kg) | LMP 11/02/2018 | BMI 25.37 kg/m Pregravid BMI: Could not be calculated Physical Exam PHYSICAL: General Exam: Neurological: Normal Abdomen: Normal gravid Extremities: Normal Pelvic Exam: Uterus: 35 Weeks Assessment/Plan Return to clinic in 1 weeks. Denies zika virus risk, signs and symptoms such as fever,rash,joint pain, conjunctivitis (red eyes),muscle pain, headaches; outside [place] travel to areas affected by zika, and FOB exposure to zika. Educated on use of mosquito repellent. Supervision of high risk , antepartum (primary encounter diagnosis) Multiparity History of delivery History of section History of Previous delivery affecting , antepartum Comment: routine Plan: HIV 1/2 AG-AB WITH REFLEX, GALV ONLY - SYPHILIS IGG/IGM, POCT URINALYSIS W SPECIFIC GRAVITY This visit did not involve counseling and coordination that comprised more than 50% of the visit time. [facility] 07/13/2019 9:04 AM documented in this encounter Plan of Treatment Date Type Specialty Care Team Description 08/03/2019 Hospital Encounter Obstetrics Fiorella Ni MD [address] [place] [address] [phone] 08/03/2019 Surgery Surgery Faculty, Ob SECTION [address] [place] [address] Name Type Priority Associated Diagnoses Date/Time HIV 1/2 AG-AB WITH LAB Routine Supervision of high risk 07/13/2019 8:33 AM INFO PRINT PRESS OPERATOR REFLEX , antepartum GALV ONLY - SYPHILIS LAB Routine Supervision of high risk 07/13/2019 8:33 AM INFO PRINT PRESS OPERATOR IGG/IGM , antepartum Health Maintenance Due Date Last Done Comments [...] Date/Time Associated Diagnosis Comments POCT URINALYSIS Routine 07/13/2019 8:35 AM Supervision of high Results for this INFO PRINT PRESS OPERATOR risk , procedure are in antepartum the results section. documented in this encounter Results POCT URINALYSIS W SPECIFIC GRAVITY (07/13/2019 8:35 AM INFO PRINT PRESS OPERATOR) POCT U SP GRAV . 1.005 - 1.025 mg/dl POCT PH U . 5 - 8 mg/dl POCT U LEUK EST . Negative - Negative POCT U NIT . Negative - Negative POCT U PROT Trace Negative - Negative POCT U GLU Neg. Negative - Negative POCT U KETONE . Negative - Negative POCT U UROBILI . 0.2 - 1 mg/dl POCT U BILI . Negative - Negative POCT U BLD . Negative - Negative POCT U COLOR POCT U APPEAR Specimen Urine - URINE, CLEAN CATCH documented in this encounter Visit Diagnoses Diagnosis Supervision of high risk , antepartum - Primary Multiparity History of delivery History of section Other postprocedural status History of Previous delivery, delivered, with or without mention of antepartum condition Previous delivery affecting , antepartum Previous delivery, antepartum condition or complication documented in this encounter Insurance Payer Benefit Plan / Subscriber ID Effective Phone Address Type Group Dates SAMMY CHRISTIANSON xxxxxxxxx 2019-Pres Alisson RYAN Medicaid HEALTHCARE - HEALTHCARE ent [id number] MANAGED MEDICAID [place], [place] documented as of this encounter
--- OUTSIDE RECORDS SUMMARY | 2019-07-29 09:44 | XMS REPORT | Summary of Care ---
:1995 Author Organization [facility] Address [address] [place] [address] Care Team Providers Name Role Phone Shelby Taylor [facility] Primary [facility] Provider Luke Baker Insurance Hmo Reason for Visit Auth/Cert Status Reason Specialty Diagnoses / Procedures Referred By Contact Referred To Contact Obstetrics Diagnoses POSS WATER BREAK,36 WKS Adc Labor And Delivery [address] [place] [address] [place] [address] Encounter Details Date Type Department Care Team Description 07/12/2019 Hospital Encounter ADC Labor and Delivery Shelia Quiñonez MD [address] [place] [address] [address] [place], [place] [address]115 Allergies Active Allergy Reactions Severity Noted Date Comments Metoclopramide Hcl Anxiety 07/12/2019 Patient says she gets figity, angry and mean documented as of this encounter (statuses as of 07/12/2019) Medications Medication Sig Dispensed Refills Start Date [...] as of this encounter (statuses as of 07/12/2019) Active Problems Problem Noted Date IUGR (intrauterine [...] as of this encounter (statuses as of 07/12/2019) Resolved Problems Problem Noted Date Resolved Date 39 weeks gestation of 05/29/2019 05/30/2019 uterine contractions in second trimester, antepartum 05/14/201905/28 Candidiasis of vulva and vagina 03/30/2019 05/28/2019 documented as of this encounter (statuses as of 07/12/2019) Immunizations Name Administration Dates Next Due Influenza [...] Sign Reading Time Taken Comments Blood Pressure 121/70 07/12/2019 6:00 PM EXCEL DEVELOPER Pulse 103 07/12/2019 6:15 PM EXCEL DEVELOPER Temperature 36.6 C (97.8 F) 07/12/2019 2:00 PM EXCEL DEVELOPER Respiratory Rate 18 07/12/2019 2:00 PM EXCEL DEVELOPER Oxygen Saturation 99% 07/12/2019 6:00 PM EXCEL DEVELOPER Inhaled Oxygen Concentration - - Weight 63.5 kg (140 lb) 07/12/2019 2:00 PM EXCEL DEVELOPER Height 154.9 cm (5' 1") 07/12/2019 2:00 PM EXCEL DEVELOPER Body Mass Index 26.45 07/12/2019 2:00 PM EXCEL DEVELOPER documented in this encounter Discharge Instructions Dimple Qureshi RN - 07/12/2019RETURN TO HOSPITAL FOR ANY CONCERNS KEEP APPOINTMENTS SCHEDULED 07/13/2019 [facility] KICK COUNT INSTRUCTION HANDOUT PROVIDED PERFORM DAILY KICK COUNTS CONTINUE VITAMIN & ANY PRESCRIBED MEDICATIONS DRINK AT LEAST EIGHT (8oz) GLASSES WATER DAILY EAT A HEALTHY DIET INCLUDING PROTEIN, FRESH FRUITS AND VEGETABLES MAY OBTAIN A SUPPORT BELT FOR COMFORT GET PLENTY OF REST AND SLEEP EIGHT HOURS A NIGHT EMPTY BLADDER EVERY TWO TO THREE HOURS WEAR COMFORTABLE CLOTHES BEGIN SMOKING CESSATION PLAN NEEDED AVOID SECOND HAND SMOKE [facility] TEACHING HANDOUTS GIVEN: COMFORT TIPS, DAILY KICK COUNTS, DEHYDRATION & THIRD TRIMESTER CHANGES Labor (36 weeks and before): 1. Drink [...] brown spotting after a vaginal exam. 2. Farner, light red and brownish spotting is not [...] hours apart. 2. Do not take any qzqa-bjn-buxpeho medications for an illness unless you have [...] that wont go away, even after taking pgba-tos-tgplajp medicines as instructed by your care provider. 4. Changes in vision, including blurry vision, a sensation of flashing lights or spots, or temporaryloss of vision. 5. Severe pain or tenderness in your upper stomach area. This may include nausea and vomiting. AttachmentsThe following attachments cannot be sent through Care Everywhere.Kick Counts (Burundian): Your Third Trimester Changes (Burundian ), Comfort Tips During (Burundian)Dehydration (Adult) (Burundian) documented in this encounter Plan of Treatment Date Type Specialty Care Team Description 07/13/2019 Routine OB Satellites Shelby Taylor, Visit [facility] [address] [place] [address] [phone] 08/03/2019 Hospital Encounter Obstetrics Fiorella Ni MD [address] [place] [address]. [place] [address] 08/03/2019 Surgery Surgery Faculty, Ob SECTION [address] [place] [address] Health Maintenance Due Date Last Done Comments [...] Comments Diagnosis ADC ONLY - FERN TEST Routine 07/12/2019 3:05 PM Results for this EXCEL DEVELOPER procedure are in the results section. ADC CLC OR LCC ONLY Routine 07/12/2019 3:05 PM Results for this - WET PREP EXCEL DEVELOPER procedure are in the results section. NOTICE OF PRIVACY Routine 07/12/2019 1:41 PM PRACTICES EXCEL DEVELOPER CONSENT/REFUSAL FOR Routine 07/12/2019 1:38 PM DIAGNOSIS AND EXCEL DEVELOPER TREATMENT ASSIGNMENT OF Routine 07/12/2019 1:37 PM BENEFITS EXCEL DEVELOPER documented in this encounter Results ADC CLC OR LCC ONLY - WET PREP (07/12/2019 3:05 PM EXCEL DEVELOPER) Wet Prep No Fungal elements [facility]ORATORY Wet Prep No Yeast [facility] Wet Prep No Trichomonas [facility] vaginalis present [facility] Wet Prep Few WBC per high-power [facility] Wet Prep Few Clue cells present [facility] Wet Prep Numerous Epithelial [facility] LABORATORY Specimen Fluid - CERVIX Performing Organization Address City/[facility]/Zipcode Phone Number [facility] CLIA: [id number], [address] [place] [address] [phone] ADC ONLY - FERN TEST (07/12/2019 3:05 PM EXCEL DEVELOPER) Fern Test Negative [facility] Specimen Fluid - VAGINA Performing Organization Address City/[facility]/Zipcode Phone Number [facility] CLIA: [id number], [address] [place] [address] [phone] documented in this encounter Administered Medications Medication Order MAR Action Action Date Dose Rate Site D5W-[id number] IV infusion 1,000 mL New Bag 07/12/2019 4:25 PM EXCEL DEVELOPER 1,000 mL 125 mL/hr at 125 mL/hr, IV Infusion, CONTINUOUS, Starting 07/12/19 at 1700, Until Discontinued, Routine proMETHazine (PHENERGAN) 25 mg in NaCl 0.9% Given 07/12/2019 4:30 PM EXCEL DEVELOPER 25 mg (NS) 50 mL piggyback 25 mg, IV Piggyback, PRN, Starting 07/12/19 at 1645, Until Discontinued, 50 mL Medication Order MAR Action Action Date Dose Rate Site acetaminophen (TYLENOL) tablet Given 07/12/2019 3:05 PM EXCEL DEVELOPER 650 mg 650 mg 650 mg, Oral, ONCE, 1 dose, 07/12/19 at 1500, Routine FENTanyl PF (SUBLIMAZE (PF)) injection 50 Given 07/12/2019 4:25 PM EXCEL DEVELOPER 50 mcg mcg 50 mcg, Slow IV Push, ONCE, 1 dose, 07/12/19 at 1615, Routine lactated ringers IV infusion New Bag 07/12/2019 4:25 PM EXCEL DEVELOPER 1,000 mL 999 mL/hr 1,000 mL at 999 mL/hr, 1,000 mL, IV Infusion, ONCE, 1 dose, 07/12/19 at 1615, STAT terbutaline (BRETHINE) injection Given 07/12/2019 4:48 PM EXCEL DEVELOPER 0.25 mg Left Arm 0.25 mg 0.25 mg, Subcutaneous, ONCE, 1 dose, 07/12/19 at 1700, Routine documented in this encounter Insurance Payer Benefit Plan / Subscriber ID Effective Phone Address Type Group Dates CHRISTIANSON CHRISTIANSON xxxxxxxxx 2019-[facility] [address] Medicaid HEALTHCARE - HEALTHCARE [place] [id number] MANAGED MEDICAID [place], [place] documented as of this encounter
--- OUTSIDE RECORDS SUMMARY | 2019-07-29 09:45 | XMS REPORT | Summary of Care ---
:1995 Author Organization [facility] Address [address] [place] [address] Care Team Providers Name Role Phone Shelby Taylor BETTY Primary Care Provider Luke Baker Insurance Hmo Encounter Details Date Type Department Care Team Description 03/27/2019 Orders Only [facility] Doctor Unassigned, No [address] [facility] [place] [address] [address] [place] [address] Allergies Active Allergy Reactions Severity Noted Date [...] CapIndications: Supervision of high risk , antepartum documented as of this encounter [...] Treatment Date Type Specialty Care Team Description 07/20/2019 Routine OB Satellites Shelby Taylor, Visit [facility] [address] [place] [address] [phone] 08/03/2019 Hospital Encounter Obstetrics Fiorella Ni MD [address] [place] [address] 08/03/2019 Surgery Surgery Faculty, Ob SECTION [address] [place] [address] Health Maintenance Due Date Last Done Comments [...] Procedure Name Priority Date/Time Associated Diagnosis Comments PATIENT CORRESPONDENCE Routine 03/27/2019 12:01 AM (LETTERS, USPS ENERGY ANALYST DOCUMENTATION) documented in this encounter Results Not on filedocumented in this encounter Insurance Payer Benefit Plan / Subscriber ID Effective Phone Address Type Group Dates SAMMY CHRISTIANSON xxxxxxxxx 2019-Pres Alisson RYAN Medicaid HEALTHCARE - HEALTHCARE ent [id number] MANAGED MEDICAID [place], [place] documented as of this encounter
--- OUTSIDE RECORDS SUMMARY | 2019-07-29 09:45 | XMS REPORT | Summary of Care ---
:1995 Author Organization [facility] Address [address] [place] [address] Care Team Providers Name Role Phone Shelby Taylor [facility] Primary Care Provider Luke Baker Insurance Hmo Reason for Visit Reason Comments Care Encounter Details Date Type Department Care Team Description [facility]/13[facility] [facility] [place] Supervision of high risk , antepartum (Primary Dx); Visit Maurice Lopez BETTY Multiparity; [address] History of delivery; [facility] History of section; [address] MARIA LUISA A History of ; [phone] [place], [place] Previous delivery affecting , antepartum [address] [...] Comments Blood Pressure 105/73 07/13/2019 8:34 AM HUMIDIFIER MAINTENANCE WORKER Pulse 82 07/13/2019 8:34 AM HUMIDIFIER MAINTENANCE WORKER Temperature 36.2 C (97.1 F) 07/13/2019 8:34 AM HUMIDIFIER MAINTENANCE WORKER Respiratory Rate 16 07/13/2019 8:34 AM HUMIDIFIER MAINTENANCE WORKER Oxygen Saturation - - Inhaled Oxygen Concentration - - Weight 60.9 kg (134 lb 4 oz) 07/13/2019 8:34 AM HUMIDIFIER MAINTENANCE WORKER Height 154.9 cm (5' 1") 07/13/2019 8:34 AM HUMIDIFIER MAINTENANCE WORKER Body Mass Index 25.37 07/13/2019 8:34 AM HUMIDIFIER MAINTENANCE WORKER documented in this encounter Progress Notes Shelby [...] (2.438 kg) F , V ALEJANDRO Comments: [place] during this 1 05/12/13 30w0d 5 lb [...] file Gets together: Not on file Attends sabianism service: Not on file Active member of [...] 07/20/2019 Routine OB Satellites Shelby Taylor, Visit [facility] [address] [place] [address] [phone] 08/03/2019 Hospital Encounter Obstetrics Fiorella Ni MD [address] [place] [address] 08/03/2019 Surgery Surgery Faculty, Ob SECTION [address] [place] [address] Name Type Priority Associated Diagnoses Date/Time HIV 1/2 AG-AB WITH LAB Routine Supervision of high risk 07/13/2019 8:33 AM HUMIDIFIER MAINTENANCE WORKER REFLEX , antepartum GALV ONLY - SYPHILIS LAB Routine Supervision of high risk 07/13/2019 8:33 AM HUMIDIFIER MAINTENANCE WORKER IGG/IGM , antepartum Name Type Priority Associated Diagnoses Order Schedule CBC WITH DIFF LAB Routine Supervision of high risk Ordered: 07/13/2019 , antepartum GC & CHLAMYDIA AMPLIFIED LAB Routine Supervision of high risk Ordered: 06/2019 ASSAY , antepartum GROUP B STREPTOCOCCUS BY LAB Routine Supervision of high risk Ordered: 06/2019 PCR , antepartum CBC WITH DIFFERENTIAL LAB Routine Supervision of high risk Ordered: 2019 , antepartum Health Maintenance Due Date Last [...] AM Supervision of high Results for this HUMIDIFIER MAINTENANCE WORKER risk , procedure are in antepartum the results section. documented in this encounter Results POCT URINALYSIS W SPECIFIC GRAVITY (07/13/2019 8:35 AM HUMIDIFIER MAINTENANCE WORKER) POCT U SP GRAV . 1.005 - [...] Group Dates SAMMY CHRISTIANSON xxxxxxxxx 2019-Pres Alisson [place]z[address] BOX Medicaid HEALTHCARE - HEALTHCARE [place] [id number] MANAGED MEDICAID [place] documented as of this encounter
--- OUTSIDE RECORDS SUMMARY | 2019-07-29 09:45 | XMS REPORT | Summary of Care ---
:1995 Author Organization [facility] Address [address] [place] [address] Care Team Providers Name Role Phone [facility] Provider Luke Baker Insurance Hmo Reason for Visit Reason Comments Care Encounter Details Date Type Department Care Team Description 07/13/2019 [facility] [place], Supervision of high risk , antepartum (Primary Dx); Visit Maurice Lopez BETTY Multiparity; [address] History of delivery; [facility] History of section; [address] MARIA LUISA A History of ; [phone] [place], [place] Previous delivery affecting , antepartum [address] [...] Comments Blood Pressure 105/73 07/13/2019 8:34 AM INSPECTOR BALANCE WHEEL MOTION Pulse 82 07/13/2019 8:34 AM INSPECTOR BALANCE WHEEL MOTION Temperature 36.2 C (97.1 F) 07/13/2019 8:34 AM INSPECTOR BALANCE WHEEL MOTION Respiratory Rate 16 07/13/2019 8:34 AM INSPECTOR BALANCE WHEEL MOTION Oxygen Saturation - - Inhaled Oxygen Concentration - - Weight 60.9 kg (134 lb 4 oz) 07/13/2019 8:34 AM INSPECTOR BALANCE WHEEL MOTION Height 154.9 cm (5' 1") 07/13/2019 8:34 AM INSPECTOR BALANCE WHEEL MOTION Body Mass Index 25.37 07/13/2019 8:34 AM INSPECTOR BALANCE WHEEL MOTION documented in this encounter Progress Notes Shelby [...] (2.438 kg) F , V ALEJANDRO Comments: [place] during this 1 05/12/13 30w0d 5 lb [...] file Gets together: Not on file Attends synagogue service: Not on file Active member of [...] Satellites Shelby Taylor, Visit [facility] [address] [place] [address] [phone] 08/03/2019 Hospital Encounter Obstetrics Fiorella Ni MD [address] [place] [address] 08/03/2019 Surgery Surgery Faculty, Ob SECTION [address] [place] [address] Name Type Priority Associated Diagnoses Date/Time HIV 1/2 AG-AB WITH REFLEX LAB Routine Supervision of high risk 07/13/2019 8:33 AM , antepartum INSPECTOR BALANCE WHEEL MOTION GALV ONLY - SYPHILIS LAB Routine Supervision of high risk 07/13/2019 8:33 AM IGG/IGM , antepartum INSPECTOR BALANCE WHEEL MOTION CBC WITH DIFF LAB Routine Supervision of high risk 07/13/2019 8:35 AM , antepartum INSPECTOR BALANCE WHEEL MOTION GC & CHLAMYDIA AMPLIFIED LAB Routine Supervision of high risk 07/13/2019 8 :35 AM ASSAY , antepartum INSPECTOR BALANCE WHEEL MOTION GROUP B STREPTOCOCCUS BY LAB Routine Supervision of high risk 07/13/2019 8 :35 AM PCR , antepartum INSPECTOR BALANCE WHEEL MOTION CBC WITH DIFFERENTIAL LAB Routine Supervision of high risk 07/13/2019 8: 35 AM , antepartum INSPECTOR BALANCE WHEEL MOTION Health Maintenance Due Date Last Done Comments [...] AM Supervision of high Results for this INSPECTOR BALANCE WHEEL MOTION risk , procedure are in antepartum the results section. documented in this encounter Results POCT URINALYSIS W SPECIFIC GRAVITY (07/13/2019 8:35 AM INSPECTOR BALANCE WHEEL MOTION) POCT U SP GRAV . 1.005 - [...] O BOX Medicaid HEALTHCARE [place] [id number] MANAGED MEDICAID [place] documented as of this encounter
--- OUTSIDE RECORDS SUMMARY | 2019-07-29 09:45 | XMS REPORT | Summary of Care ---
:1995 Author Organization [facility] Address [address] [place] [address] Care Team Providers Name Role Phone [facility] Luke Baker Insurance Hmo Reason for Visit Reason Comments Care Encounter Details Date Type Department Care Team Description 07/13[facility] [place] Supervision of high risk , antepartum (Primary Dx); Visit Maurice Lopez BETTY Multiparity; [address] History of delivery; [facility] History of section; [address] MARIA LUISA A History of ; [phone] [place], [place] Previous delivery affecting , antepartum [address] [...] Comments Blood Pressure 105/73 07/13/2019 8:34 AM RIPSAW MATCHER Pulse 82 07/13/2019 8:34 AM RIPSAW MATCHER Temperature 36.2 C (97.1 F) 07/13/2019 8:34 AM RIPSAW MATCHER Respiratory Rate 16 07/13/2019 8:34 AM RIPSAW MATCHER Oxygen Saturation - - Inhaled Oxygen Concentration - - Weight 60.9 kg (134 lb 4 oz) 07/13/2019 8:34 AM RIPSAW MATCHER Height 154.9 cm (5' 1") 07/13/2019 8:34 AM RIPSAW MATCHER Body Mass Index 25.37 07/13/2019 8:34 AM RIPSAW MATCHER documented in this encounter Progress Notes Shelby [...] (2.438 kg) F , V ALEJANDRO Comments: [place] during this 1 05/12/13 30w0d 5 lb [...] file Gets together: Not on file Attends mormon service: Not on file Active member of [...] Satellites Shelby Taylor, Visit [facility] [address] [place] [address] [phone] 08/03/2019 Hospital Encounter Obstetrics Fiorella Ni MD [address] [place] [address] 08/03/2019 Surgery Surgery Faculty, Ob SECTION [address] [place] [address] Name Type Priority Associated Diagnoses Date/Time HIV 1/2 AG-AB WITH LAB Routine Supervision of high risk 07/13/2019 8:33 AM RIPSAW MATCHER REFLEX , antepartum GALV ONLY - SYPHILIS LAB Routine Supervision of high risk 07/13/2019 8:33 AM RIPSAW MATCHER IGG/IGM , antepartum Health Maintenance Due Date [...] AM Supervision of high Results for this RIPSAW MATCHER risk , procedure are in antepartum the results section. documented in this encounter Results POCT URINALYSIS W SPECIFIC GRAVITY (07/13/2019 8:35 AM RIPSAW MATCHER) POCT U SP GRAV . 1.005 - [...] Address Type Group Dates SAMMY CHRISTIANSON xxxxxxxxx 2019-[place] O BOX Medicaid HEALTHCARE - [place]ARE [place] [id number] MANAGED MEDICAID [place], [place] documented as of this encounter
--- OUTSIDE RECORDS SUMMARY | 2019-07-29 09:46 | XMS REPORT | Summary of Care ---
:1995 Author Organization [facility] Address [address] [place] [address] Care Team Providers Name Role Phone Shelby Taylor [facility] Primary Care Provider Luke Baker Insurance Hmo Reason for Visit Reason Comments Anemia Encounter Details Date Type Department Care Team Description 07/14/2019 Telephone [facility] Shelby Taylor, Anemia [address] [place] [address] [address] [facility] [phone] [place] [address] Allergies Active Allergy Reactions Severity Noted Date Comments Metoclopramide Hcl Anxiety 07/12/2019 Patient says she gets figity, angry and mean documented as of this encounter (statuses as of 07/14/2019) Medications Medication Sig Dispensed Refills Start Date End Date Status PNV 67-iron ps-folate Take 1 Each by 30 capsule 9 02/06/2019 Active no.1-dha (VITAFOL mouth daily. ULTRA) 29 mg iron- 1 mg-200 mg CapIndications: Supervision of high risk , antepartum famotidine 40 mg Take 1 tablet by [...] in meals. ALBUTEROL 90 INHALE 2 PUFFS 7 Each 3 05/26/2019 Active mcg/actuation BY MOUTH EVERY 6 inhalerIndications: HOURS NEEDED Asthma affecting FOR WHEEZING FOR in second SHORTNESS OF trimester BREATH cyclobenzaprine 10 mg Take 1 tablet by 90 tablet 0 05/21/2019 Active tabletIndications: Back mouth 3 (three) pain affecting times daily as in third needed for trimester Muscle Spasms. buPROPion SR Take 1 tablet by 60 tablet 3 05/21/2019 Active (WELLBUTRIN SR) 150 mg mouth 2 (two) SR tabletIndications: times daily. Depression affecting in third trimester, antepartum busPIRone 10 mg Take 1 tablet by 90 tablet 3 05/21/2019 Active tabletIndications: mouth 3 (three) Anxiety during times daily. in third trimester, antepartum famotidine (PEPCID) 20 Take 1 tablet by 60 tablet 0 07/06/2019 Active mg tabletIndications: mouth 2 (two) Heartburn during times daily. in third trimester documented as of this encounter (statuses as of 07/14/2019) Active Problems Problem Noted Date IUGR (intrauterine [...] as of this encounter (statuses as of 07/14/2019) Resolved Problems Problem Noted Date Resolved Date 39 weeks gestation of 05/29/2019 05/30/2019 uterine contractions in second trimester, antepartum 05/14/201905/28 Candidiasis of vulva and vagina 03/30/2019 05/28/2019 documented as of this encounter (statuses as of 07/14/2019) Immunizations Name Administration Dates Next Due Influenza [...] 07/20/2019 Routine OB Satellites Shelby Taylor[facility] [address] [place] [address] [phone] 08/03/2019 Hospital Encounter Obstetrics Fiorella Ni MD [address] [place] [address]. [place] [address] 08/03/2019 Surgery Surgery Faculty, Ob SECTION [address] [place] [address] Health Maintenance Due Date Last Done Comments [...] O BOX Medicaid HEALTHCARE [place] [id number] MANAGED MEDICAID [place] documented as of this encounter
--- OUTSIDE RECORDS SUMMARY | 2019-07-29 09:46 | XMS REPORT | Summary of Care ---
:1995 Author Organization [facility] Address [address] [place] [address] Care Team Providers Name Role Phone Shelby Taylor [facility] Primary Care Provider Luke Baker Insurance Hmo Reason for Visit Reason Comments Anemia Encounter Details Date Type Department Care Team Description 07/14/2019 Telephone [facility] Shelby Taylor, Anemia [address] [place] [address] [address] [facility] [phone] [place] [address] Allergies Active Allergy Reactions Severity [...] 07/20/2019 Routine OB Satellites Shelby Taylor[facility] [address] [place] [address] [phone] 08/03/2019 Hospital Encounter Obstetrics Fiorella Ni MD [address] [place] [address]. [place] [address] 08/03/2019 Surgery Surgery Faculty, Ob SECTION [address] [place] [address] Health Maintenance Due Date Last Done Comments [...] O BOX Medicaid HEALTHCARE - [place]ARE [place] [id number] MANAGED MEDICAID [place], [place] documented as of this encounter
--- OUTSIDE RECORDS SUMMARY | 2019-07-29 09:46 | XMS REPORT | Summary of Care ---
:1995 Author Organization [facility] Address [address] [place] [address] Care Team Providers Name Role Phone Shelby [facility] Provider Luke Baker Insurance Hmo Encounter Details Date Type Department Care Team Description 07/14/2019 Patient Secure Msg [facility] Joshi RN [address] [place] [address] [place] [phone] Allergies Active Allergy Reactions Severity Noted Date [...] 07/20/2019 Routine OB Satellites Shelby Taylor, Visit [facility] [address] [place] [address] [phone] 08/03/2019 Hospital Encounter Obstetrics Fiorella Ni MD [address] [place] [address] 08/03/2019 Surgery Surgery Faculty, Ob SECTION [address] [place] [address] Health Maintenance Due Date Last Done Comments [...] Alisson RYAN Medicaid HEALTHCARE [place]ARE [place] [id number] MANAGED MEDICAID [place], [place] documented as of this encounter
--- OUTSIDE RECORDS SUMMARY | 2019-07-29 09:46 | XMS REPORT | Summary of Care ---
:1995 Author Organization [facility] Address [address] [place] [address] Care Team Providers Name Role Phone Shelby [facility] Primary [facility] Provider Luke Baker Insurance Hmo Reason for Visit Auth/Cert Status Reason Specialty Diagnoses / Procedures Referred By Contact Referred To Contact Obstetrics Diagnoses VAGINAL PRESSURE [facility] Labor And Delivery [address] [place] [address] [place] [address] Encounter Details Date Type Department Care Team Description 07/15/2019 Hospital Encounter [facility] Labor and Delivery Raven Mayfield MD Unit [address] [place] [address] [place] [address] Dr [address] [place] [address] [place], [place] [phone] Allergies Active Allergy Reactions Severity Noted Date Comments Metoclopramide Hcl Anxiety 07/12/2019 Patient says she gets figity, angry and mean documented as of this encounter (statuses as of 07/15/2019) Medications Medication Sig Dispensed Refills Start Date [...] as of this encounter (statuses as of 07/15/2019) Active Problems Problem Noted Date IUGR (intrauterine [...] as of this encounter (statuses as of 07/15/2019) Resolved Problems Problem Noted Date Resolved Date 39 weeks gestation of 05/29/2019 05/30/2019 uterine contractions in second trimester, antepartum 05/14/201905/28 Candidiasis of vulva and vagina 03/30/2019 05/28/2019 documented as of this encounter (statuses as of 07/15/2019) Immunizations Name Administration Dates Next Due Influenza [...] Sign Reading Time Taken Comments Blood Pressure 120/80 07/15/2019 4:30 PM INSTRUCTOR PILOT Pulse 87 07/15/2019 5:50 PM INSTRUCTOR PILOT Temperature 36.9 C (98.4 F) 07/15/2019 4:30 PM INSTRUCTOR PILOT Respiratory Rate 18 07/15/2019 4:30 PM INSTRUCTOR PILOT Oxygen Saturation 100% 07/15/2019 5:44 PM INSTRUCTOR PILOT Inhaled Oxygen Concentration - - Weight - - Height 154.9 cm (5' 1") 07/15/2019 4:30 PM INSTRUCTOR PILOT Body Mass Index - - documented in this encounter Discharge Instructions Emmie Phelps RN - 07/15/2019Please keep your followed appointment with your PCP on July 20, 2019 at 8:15am Labor (36 weeks and before): 1. Drink [...] brown spotting after a vaginal exam. 2. [place], light red and brownish spotting is not [...] hours apart. 2. Do not take any xmhx-vff-xzhtitc medications for an illness unless you have [...] that wont go away, even after taking jheq-mzw-ibylxtk medicines as instructed by your care provider. 4. Changes in vision, including blurry vision, a sensation of flashing lights or spots, or temporaryloss of vision. 5. Severe pain or tenderness in your upper stomach area. This may include nausea and vomiting. PLEASE WEAR YOUR MATERNITY BELT ADEQUATE HYDRATION KICK COUNTS KEEP FOLLOW UP APPOINTMENT AttachmentsThe following attachments cannot be sent through Care Everywhere.Pelvic Pain In : Unclear (2-3 Trimester) (Jordanian) , Relieving Back Pain During: Pelvic Tilt, Leg Lift (Jordanian)documented in this encounter Plan of Treatment Date Type Specialty Care Team Description 07/20/2019 Routine OB Satellites Shelby Taylor, Visit [facility] [address] [place], [place] [phone] 08/03/2019 Hospital Encounter Obstetrics Fiorella Ni MD [address] [place] [address] 08/03/2019 Surgery Surgery Faculty, Ob SECTION [address] [place] [address] Health Maintenance Due Date Last Done Comments PAP SMEAR 07/16/2019 Postponed from 02/19/2016 ( or ) HPV VACCINES (1 - Female 03/02/2020 Postponed from 2-dose series) 2006 ( or ) CHLAMYDIA SCREENING 07/12/2020 07/13/2019, 06/17/2019, 05/30/2019, Additional history exists DTaP,Tdap,and Td Vaccines 05/21/2029 05/21/2019 (2 - Td) INFLUENZA VACCINE Completed 02/06/2019 PNEUMOCOCCAL 0-64 YEARS Discontinued COMBINED SERIES documented as of this encounter Results Not on filedocumented in this encounter Insurance Payer Benefit Plan / Subscriber ID Effective Phone Address Type Group Dates SAMMY CHRISTIANSON xxxxxxxxx 2019-Pres [address] Medicaid HEALTHCARE - [place]CARE [place] [id number] MANAGED MEDICAID [place] documented as of this encounter
--- OUTSIDE RECORDS SUMMARY | 2019-07-29 09:47 | XMS REPORT | Summary of Care ---
:1995 Author Organization [address] [address] Care Team Providers Name Role Phone Shelby [facility] Primary Care Provider Luke Baker Insurance Hmo Reason for Visit Reason Comments contractions every 3 mins for the past 2 hours. Encounter Details Date Type Department Care Team Description 07/20/2019 Nurse Triage [facility] Caren Sanon RN [address] [place] [address] (contractions every [address] [place] mins for the past 2 [place] [address] hours.) [phone] Allergies Active Allergy Reactions Severity Noted Date Comments Metoclopramide Hcl Anxiety 07/12/2019 Patient says she gets figity, angry and mean documented as of this encounter (statuses as of 07/20/2019) Medications Medication Sig Dispensed Refills Start Date [...] as of this encounter (statuses as of 07/20/2019) Active Problems Problem Noted Date IUGR (intrauterine [...] as of this encounter (statuses as of 07/20/2019) Resolved Problems Problem Noted Date Resolved Date 39 weeks gestation of 05/29/2019 05/30/2019 uterine contractions in second trimester, antepartum 05/14/201905/28 Candidiasis of vulva and vagina 03/30/2019 05/28/2019 documented as of this encounter (statuses as of 07/20/2019) Immunizations Name Administration Dates Next Due Influenza [...] 07/20/2019 Routine OB Satellites Shelby Taylor, [facility] [address] [place] [address] [phone] 08/03/2019 Hospital Encounter Obstetrics Fiorella Ni MD [address] [place] [address] [place] [phone] 08/03/2019 Surgery Surgery Faculty, Ob SECTION [address] [place] [address] Health Maintenance Due Date Last Done Comments PAP SMEAR 02/19/2016 HPV VACCINES (1 - Female 03/02/2020 Postponed [...] O BOX Medicaid HEALTHCARE - [place] [id number] MANAGED MEDICAID [place] documented as of this encounter
--- OUTSIDE RECORDS SUMMARY | 2019-07-29 09:47 | XMS REPORT | Summary of Care ---
:1995 Author Organization [facility] Address [address] [place] [address] Care Team Providers Name Role Phone Shelby Taylor [facility] Primary Care Provider Luke Baker Insurance Hmo Reason for Visit Auth/Cert Status Reason Specialty Diagnoses / Procedures Referred By Contact Referred To Contact Obstetrics Diagnoses [facility] Delivery [address] [place] [address] [place] [address] Encounter Details Date Type Department Care Team Description 07/18/2019 Hospital Encounter [facility] Labor and Delivery Shelia Quiñonez MD [address] [place] [address] [facility] [address] [place] [address] [phone] Allergies Active Allergy Reactions Severity Noted Date Comments Metoclopramide Hcl Anxiety 07/12/2019 Patient says she gets figity, angry and mean documented as of this encounter (statuses as of 07/18/2019) Medications Medication Sig Dispensed Refills Start Date [...] as of this encounter (statuses as of 07/18/2019) Active Problems Problem Noted Date IUGR (intrauterine [...] as of this encounter (statuses as of 07/18/2019) Resolved Problems Problem Noted Date Resolved Date 39 weeks gestation of 05/29/2019 05/30/2019 uterine contractions in second trimester, antepartum 05/14/201905/28 Candidiasis of vulva and vagina 03/30/2019 05/28/2019 documented as of this encounter (statuses as of 07/18/2019) Immunizations Name Administration Dates Next Due Influenza [...] Sign Reading Time Taken Comments Blood Pressure 119/82 07/18/2019 3:50 AM COPY PREPARER Pulse 85 07/18/2019 3:50 AM COPY PREPARER Temperature 36.5 C (97.7 F) 07/18/2019 1:13 AM COPY PREPARER Respiratory Rate 18 07/18/2019 3:50 AM COPY PREPARER Oxygen Saturation 100% 07/18/2019 3:50 AM COPY PREPARER Inhaled Oxygen Concentration - - Weight 60.8 kg (134 lb) 07/18/2019 1:13 AM COPY PREPARER Height 154.9 cm (5' 1") 07/18/2019 1:13 AM COPY PREPARER Body Mass Index 25.32 07/18/2019 1:13 AM COPY PREPARER documented in this encounter Discharge Instructions Hattie Lawson RN - 07/18/2019Preterm Labor (36 weeks and before): 1. Drink [...] brown spotting after a vaginal exam. 2. [place], light red and brownish spotting is not [...] hours apart. 2. Do not take any lgzj-est-mqioxtg medications for an illness unless you have [...] that wont go away, even after taking xypv-zdm-vikuufp medicines as instructed by your care provider. 4. Changes in vision, including blurry vision, a sensation of flashing lights or spots, or temporaryloss of vision. 5. Severe pain or tenderness in your upper stomach area. This may include nausea and vomiting. 6. documented in this encounter Plan of Treatment Date Type Specialty Care Team Description 07/20/2019 Routine OB Satellites Shelby Taylor, Visit [facility] [address] [place], [place] [id number] 08/03/2019 Hospital Encounter Obstetrics Fiorella Ni MD [address] [place] [address] 08/03/2019 Surgery Surgery Faculty, Ob SECTION [address] [place] [address] Health Maintenance Due Date Last Done Comments [...] Procedure Name Priority Date/Time Associated Comments Diagnosis CBC WITH DIFFERENTIAL Routine 07/18/2019 2:54 Results for this AM COPY PREPARER procedure are in the results section. CBC WITH DIFFERENTIAL Routine 07/18/2019 2:54 Results for this AM COPY PREPARER procedure are in the results section. COMP. METABOLIC PANEL Routine 07/18/2019 2:54 Results for this (45964) AM COPY PREPARER procedure are in the results section. documented in this encounter Results CBC WITH DIFFERENTIAL (07/18/2019 2:54 AM COPY PREPARER) WBC 13.79 (H) 4.30 - 11.10 [facility] 10*3/L [facility] RBC 3.79 (L) 3.93 - 5.25 [facility] 10*6/L [facility] HGB 10.6 (L) 11.6 - 15.0 [facility] g/dL [facility] HCT 31.7 (L) 35.7 - 45.2 % [facility] MCV 83.6 80.6 - 95.5 fL [facility] MCH 28.0 25.9 - 32.8 pg [facility] MCHC 33.4 31.6 - 35.1 [facility] g/dL [facility] RDW-SD 41.4 39.0 - 49.9 fL [facility] RDW-CV 13.7 12.0 - 15.5 % [facility] PLT 218 166 - 358 [facility] 10*3/L [facility] MPV 10.7 9.5 - 12.9 fL [facility] NRBC/100 WBC 0.0 0.0 - 10.0 /100 [facility] WBCs [facility] NRBC x10^3 <0.01 10*3/L [facility] GRAN MAT (NEUT) % 72.7 % [facility] IMM GRAN % 2.20 % [facility] LYMPH % 16.4 % [facility] MONO % 6.1 % [facility] EOS % 2.2 % [facility] BASO % 0.4 % [facility] GRAN MAT x10^3(ANC) 10.02 (H) 1.88 - 7.09 [facility] 10*3/uL [facility] IMM GRAN x10^3 0.30 (H) 0.00 - 0.06 [facility] 10*3/uL [facility] LYMPH x10^3 2.26 1.32 - 3.29 [facility] 10*3/uL [facility] MONO x10^3 0.84 0.33 - 0.92 [facility] 10*3/uL [facility] EOS x10^3 0.31 0.03 - 0.39 [facility] 10*3/uL [facility] BASO x10^3 0.06 0.01 - 0.07 [facility] 10*3/uL [facility] Specimen Blood - HAND, LEFT Performing Organization Address City/State/Zipcode Phone Number [facility] CLIA: [id number], [address] [place], [place] [id number] [address] COMP. METABOLIC PANEL (16950) (07/18/2019 2:54 AM COPY PREPARER) NA 136 135 - 145 [facility] mmol/L [facility] K 3.8 3.5 - 5.0 [facility] mmol/L [facility] CL 106 98 - 108 mmol/L [facility] CO2 TOTAL 21 (L) 23 - 31 mmol/L [facility] AGAP 9 2 - 16 [facility] BUN 7 7 - 23 mg/dL [facility] GLUCOSE 91 70 - 110 mg/dL [facility] CREATININE 0.52 0.50 - 1.04 [facility] mg/dL [facility] TOTAL BILI 0.4 0.1 - 1.1 mg/dL [facility] CALCIUM 8.7 8.6 - 10.6 [facility] mg/dL [facility] T PROTEIN 6.3 6.3 - 8.2 g/dL [facility] ALBUMIN 3.5 3.5 - 5.0 g/dL [facility] ALK PHOS 162 (H) 34 - 122 U/L [facility] ALTv 12 5 - 35 U/L [facility] AST(SGOT) 23 13 - 40 U/L [facility] eGFR Calculation 144.9 mL/min/1.73m2 [facility] ([facility] [place]) eGFR Calculation 175.6 mL/min/1.73m2 [facility] () [facility] Specimen Blood - HAND, LEFT Narrative Performed At Association of Glomerular Filtration Rate (GFR) [facility] and Staging of Kidney Disease* [...] tests). Performing Organization Address City/State/Zipcode Phone Number [facility] CLIA: [id number], [address] [place] [address] [phone] documented in this encounter Administered Medications Medication Order MAR Action Action Date Dose Rate Site lactated ringers IV New Bag 07/18/2019 4:45 AM COPY PREPARER 1,000 mL 125 mL/hr infusion 1,000 mL at 125 mL/hr, 1,000 mL, IV Infusion, CONTINUOUS, Starting 07/18/19 at 0445, Until Discontinued, Routine Medication Order MAR Action Action Date Dose Rate Site lactated ringers IV New Bag 07/18/2019 2:50 AM COPY PREPARER 1,000 mL 999 mL/hr infusion 1,000 mL at 999 mL/hr, 1,000 mL, IV Infusion, ONCE, 1 dose, 07/18/19 at 0315, Routine ondansetron (ZOFRAN (PF)) injection 4 mg Given 07/18/2019 2:50 AM COPY PREPARER 4 mg 4 mg, Slow IV Push, ONCE, 1 dose, 07/18/19 at 0315, Routine terbutaline (BRETHINE) Given 07/18/2019 4:51 AM COPY PREPARER 0.25 mg Left Upper Arm-SC injection 0.25 mg 0.25 mg, Subcutaneous, ONCE, 1 dose, 07/18/19 at 0445, Routine documented in this encounter Insurance Payer Benefit Plan / Subscriber ID Effective Phone Address Type Group Dates SAMMY CHRISTIANSON xxxxxxxxx 2019-Pres [address] Medicaid HEALTHCARE - HEALTHCARE ent [id number] MANAGED MEDICAID [place], [place] documented as of this encounter
--- OUTSIDE RECORDS SUMMARY | 2019-07-29 09:47 | XMS REPORT | Summary of Care ---
:1995 Author Organization [facility] Address [address] [place] [address] Care Team Providers Name Role Phone [facility] Provider Luke Baker Insurance Hmo Encounter Details Date Type Department Care Team Description 07/20/2019 Orders Only [facility] Doctor Unassigned, No [address] [facility] [place] [address] [address] [place] [address] Allergies Active Allergy Reactions Severity Noted Date [...] Hospital Encounter Obstetrics Fiorella Ni MD [address] [place] [address] 08/03/2019 Surgery Surgery Faculty, Ob SECTION [address] [place] [address] Health Maintenance Due Date Last Done Comments [...] Procedure Name Priority Date/Time Associated Diagnosis Comments CONSENT/REFUSAL FOR Routine 07/20/2019 4:04 PM CDT DIAGNOSIS AND TREATMENT documented in this encounter Results Not on filedocumented in this encounter Insurance Payer Benefit Plan / Subscriber ID Effective Phone Address Type Group Dates SAMMY CHRISTIANSON xxxxxxxxx 2019- [address] Medicaid HEALTHCARE - HEALTHCARE ent [id number] MANAGED MEDICAID [place], [place] documented as of this encounter
--- OUTSIDE RECORDS SUMMARY | 2019-07-29 09:48 | XMS REPORT | Summary of Care ---
:1995 Author Organization [facility] Address [address] [place] [address] Care Team Providers Name Role Phone Shelby Taylor BETTY Primary Care Provider Luke Baker Insurance Hmo Reason for Referral (Routine) Status Reason Specialty Diagnoses / Referred By Referred To Procedures Contact Contact New Request Diagnoses Liveborn infant, of morel , born in hospital by delivery Supervision of high risk in third trimester Multiparity History of delivery History of section History of Prasanna Vargas MD Anxiety during in second trimester, antepartum Asthma affecting in third trimester Gastroesophageal reflux in Tubal ligation status 37 weeks gestation of Normal labor [address] [place] [address] Procedures DISCHARGE FOLLOW-UP: [facility] [address] [place] [address] Reason for Visit Auth/Cert Status Reason Specialty Diagnoses / Procedures Referred By Contact Referred To Contact Obstetrics Diagnoses 37 WKS PREG,ALEXEY Adc Labor And Delivery [address] [place] [address] [place] [address] Encounter Details Date Type Department Care Team Description 07/20/2019 - Hospital Encounter ADC Labor and Prasanna Vargas, Liveborn infant, of 07/23/2019 Delivery Unit morel [address] [place] [address] , born [place] [address] [address] delivery [phone] [place] [address] [phone] Allergies Active Allergy Reactions Severity Noted Date Comments Metoclopramide Hcl Anxiety 07/12/2019 Patient says she gets figity, angry and mean documented as of this encounter (statuses as of 07/23/2019) Medications Medication Sig Dispensed Refills Start Date End Date Status ALBUTEROL 90 INHALE 2 PUFFS 7 Each 3 05/26/2019 Active mcg/actuation BY MOUTH EVERY inhalerIndications: 6 HOURS Asthma affecting NEEDED FOR in second WHEEZING FOR trimester SHORTNESS OF BREATH buPROPion SR Take 1 tablet 60 tablet 3 05/21/2019 Active (WELLBUTRIN SR) 150 by mouth 2 mg SR (two) times tabletIndications: daily. Depression affecting in third trimester, antepartum busPIRone 10 mg Take 1 tablet 90 tablet 3 05/21/2019 Active tabletIndications: by mouth 3 Anxiety during (three) times in third daily. trimester, antepartum acetaminophen 325 mg Take 2 tablets 30 tablet 1 07/23/2019 Active tabletIndications: by mouth every Liveborn infant, of 6 (six) hours morel , as needed for born in hospital by Pain (scale delivery, 1-3) or Pain Supervision of high (scale 4-6). risk in third trimester, Multiparity, History of delivery, History of section, History of , Anxiety during in second trimester, antepartum, Asthma affecting in third trimester, Gastroesophageal reflux in , Tubal ligation status, 37 weeks gestation of , Normal labor gabapentin 300 mg Take 1 capsule 15 capsule 0 07/23/2019 07/28/19 Active capsuleIndications: by mouth 3 20 Liveborn , of (three) times morel , daily for 5 born in hospital by days. delivery, Supervision of high risk in third trimester, Multiparity, History of delivery, History of section, History of , Anxiety during in second trimester, antepartum, Asthma affecting in third trimester, Gastroesophageal reflux in , Tubal ligation status, 37 weeks gestation of , Normal labor vitamin w/FA Take 1 tablet 100 tablet 3 07/23/2019 Active tabletIndications: by mouth Liveborn infant, of daily. morel , born in hospital by delivery, Supervision of high risk in third trimester, Multiparity, History of delivery, History of section, History of , Anxiety during in second trimester, antepartum, Asthma affecting in third trimester, Gastroesophageal reflux in , Tubal ligation status, 37 weeks gestation of , Normal labor docusate calcium 240 Take 1 capsule 30 capsule 1 07/23/2019 Active mg by mouth once capsuleIndications: daily as Liveborn infant, of needed for morel , Constipation. born in hospital by delivery, Supervision of high risk in third trimester, Multiparity, History of delivery, History of section, History of , Anxiety during in second trimester, antepartum, Asthma affecting in third trimester, Gastroesophageal reflux in , Tubal ligation status, 37 weeks gestation of , Normal labor ferrous sulfate 325 Take 1 tablet 60 tablet 2 07/23/2019 Active mg (65 mg iron) by mouth 2 tabletIndications: (two) times Liveborn infant, of daily. morel , born in hospital by delivery, Supervision of high risk in third trimester, Multiparity, History of delivery, History of section, History of , Anxiety during in second trimester, antepartum, Asthma affecting in third trimester, Gastroesophageal reflux in , Tubal ligation status, 37 weeks gestation of , Normal labor ibuprofen 600 mg Take 1 tablet 30 tablet 1 07/23/2019 Active tabletIndications: by mouth every Liveborn , of 6 (six) hours morel , as needed born in hospital by (Pain). Take delivery, with food or Supervision of high milk. risk in third trimester, Multiparity, History of delivery, History of section, History of , Anxiety during in second trimester, antepartum, Asthma affecting in third trimester, Gastroesophageal reflux in , Tubal ligation status, 37 weeks gestation of , Normal labor PNV 67-iron ps-folate Take 1 Each by 30 capsule 9 02/06/2019 07/23/19 Discontinued no.1-dha (VITAFOL mouth daily. 20 ULTRA) 29 mg iron- 1 mg-200 mg CapIndications: Supervision of high risk , antepartum famotidine 40 mg Take 1 tablet 30 tablet 3 05/08/2019 07/23/19 Discontinued tabletIndications: by mouth 20 Gastroesophageal daily. reflux in ferrous sulfate 325 Take 1 tablet 120 tablet 6 05/11/2019 07/23/19 Discontinued mg (65 mg iron) by mouth 2 20 tabletIndications: (two) times Anemia of mother in daily. , antepartum ascorbic acid, Take 1 tablet 90 tablet 6 05/11/2019 07/23/19 Discontinued vitamin C, 500 mg by mouth 3 20 tabletIndications: (three) times Anemia of mother in daily. , antepartum proMETHazine 25 mg Take 1 tablet 30 tablet 0 05/25/2019 07/23/19 Discontinued tabletIndications: by mouth every 20 Nausea and vomiting 6 (six) hours during as needed for Nausea and Vomiting (N/V). calcium carbonate 500 Take 1 tablet 90 tablet 0 05/25/2019 07/23/19 Discontinued mg calcium (1,250 mg) by mouth 3 20 tabletIndications: (three) times Leg cramps in daily with meals. cyclobenzaprine 10 mg Take 1 tablet 90 tablet 0 05/21/2019 07/23/19 Discontinued tabletIndications: by mouth 3 20 Back pain affecting (three) times in third daily as trimester needed for Muscle Spasms. famotidine (PEPCID) Take 1 tablet 60 tablet 0 07/06/2019 07/23/19 Discontinued 20 mg by mouth 2 20 tabletIndications: (two) times Heartburn during daily. in third trimester documented as of this encounter (statuses as of 07/23/2019) Active Problems Problem Noted Date Liveborn infant, of morel , born in hospital by 2019 delivery Normal labor 07/21/2019 Cervical Papanicolaou smear negative within last 12 months 06/19/2019 Overview: 12/2018 NIL pap , see scanned records 37 weeks gestation of 05/14/2019 Gastroesophageal reflux in 05/08/2019 Tubal ligation status 05/08/2019 Anxiety during in second trimester, antepartum 04/16/2019 Asthma affecting in third trimester 04/16/2019 Supervision of high risk in third trimester 02/06/2019 Multiparity 02/06/2019 History of delivery 02/06/2019 Overview: History of [facility] inj History of section 02/06/2019 History of 02/06/2019 Comments Yes documented as of this encounter (statuses as of 07/23/2019) Resolved Problems Problem Noted Date Resolved Date IUGR (intrauterine growth restriction) affecting care of 06/23/20192019 mother, third trimester, fetus 1 Body aches 06/23/2019 07/21/2019 Upper respiratory tract infection, unspecified type 06/23/2019 07/21/2019 Pain of round ligament during 06/04/2019 07/21/2019 Previous delivery affecting , antepartum 05/31/20192019 uterine contractions 05/30/2019 07/21/2019 39 weeks gestation of 05/29/2019 05/30/2019 Threatened labor, third trimester 05/28/2019 07/21/2019 uterine contractions in second trimester, antepartum 05/14/201905/28 BV (bacterial vaginosis) 05/14/2019 07/21/2019 Anemia of mother in , antepartum 05/11/2019 07/21/2019 Candidiasis of vulva and vagina 03/30/2019 05/28/2019 documented as of this encounter (statuses as of 07/23/2019) Immunizations Name Administration Dates Next Due Influenza [...] more drinks on one occasion? Not asked Comments Yes Sex Assigned at Date Recorded Not on file Job Start Date Occupation Industry Not on file Not on file Not on file Travel History Travel Start Travel End No recent travel history available. documented as of this encounter Last Filed Vital Signs Vital Sign Reading Time Taken Comments Blood Pressure 138/80 07/23/2019 7:45 AM CDT Pulse 93 07/23/2019 7:45 AM CDT Temperature 36.7 C (98 F) 07/23/2019 7:45 AM CDT Respiratory Rate 18 07/23/2019 6:23 AM CDT Oxygen Saturation 100% 07/22/2019 3:16 PM CDT Inhaled Oxygen Concentration - - Weight - - Height - - Body Mass Index - - documented in this encounter Discharge Instructions AttachmentsThe following attachments cannot be sent through Care Everywhere.Acetaminophen tablets or caplets (Afghan)Docusate capsules (Afghan) Iron tablets, capsules, extended-release tablets (Afghan)Gabapentin capsules or tablets (Afghan)Ibuprofen tablets and capsules (Afghan) Vitamin and Mineral Combinations (oral solid dosage forms) (Afghan) Depression, Understanding (Afghan) Section (), Discharge Instructions for (Afghan)documented in this encounter Progress Notes Prasanna Vargas MD - 07/22/2019 7:33 AM CDT NATANAEL HARRIS #: [id number] Date of service: 07/22/2019 SUBJECTIVE: Overnight patient had no complaints. She denied headache, vomiting, chest pain /pressure, shortnessof breath, RUQ pain, vision disturbance. + nausea. Patient was tolerating clear diet. She has not started to ambulate. She reported pain was controlled with pain meds. She has not passed flatus and has not had a bowel movement postoperatively. Lochia was minimal. OBJECTIVE: Patient Vitals for the past 24 hrs: BP Temp Temp src Pulse Resp SpO2 07/22/19 0400 122/72 36.7 C (98 F) Oral 80 18 100 % 07/22/19 0015 (!) 124/92 36.4 C (97.6 F) Oral 86 17 100 % 07/21/19 2345 117/82 85 07/21/19 2000 115/70 36.7 C (98 F) Oral 80 100 % 07/21/19 1900 120/71 74 07/21/19 1830 79 07/21/19 1815 77 07/21/19 1800 105/88 82 100 % 07/21/19 1745 81 100 % 07/21/19 1730 73 100 % 07/21/19 1715 84 100 % 07/21/19 1700 103/69 89 07/21/19 1645 77 100 % 07/21/19 1630 107/64 84 100 % 07/21/19 1600 116/72 82 100 % 07/21/19 1545 77 07/21/19 1530 111/70 88 100 % 07/21/19 1515 108/60 36.8 C (98.2 F) 78 100 % 07/21/19 1500 113/65 89 100 % 07/21/19 1445 113/66 93 100 % 07/21/19 1430 114/66 89 07/21/19 1415 123/71 36.7 C (98 F) 96 100 % 07/21/19 1400 125/79 102 100 % 07/21/19 1345 120/71 99 100 % 07/21/19 1315 117/75 36.8 C (98.3 F) 86 100 % 07/21/19 1300 120/73 88 100 % 07/21/19 1245 121/69 92 100 % 07/21/19 1230 118/78 101 100 % 07/21/19 1215 117/70 36.4 C (97.6 F) 89 100 % 07/21/19 0938 127/82 105 07/21/19 0930 36.7 C (98 F) Oral 102 99 % 07/21/19 0915 97 07/21/19 0900 127/82 107 100 % 07/21/19 0800 92 100 % 07/21/19 0745 96 100 % Intake/Output Summary (Last 24 hours) at 07/22/2019 0733 Last data filed at 07/22/2019 0630 Gross per 24 hour Intake 2000 ml Output 2600 ml Net -600 ml CONSTITUTIONAL: no apparent distress, appearing age-appropriate. RESPIRATORY: good inspiratory effort to inspections, lungs clear to auscultation bilaterally. No wheeze/stridor/crackles bilaterally. CARDIOVASCULAR: regular rate and rhythm. No rubs/gallops/murmurs. GASTROINTESTINAL: abdomen soft, non distended, appropriately tender postoperatively. Bowel sound present and active. Fundus firm and below umbilicus. NEUROLOGICAL/PSYCHIATRIC: alert, awake, and oriented x 3. Normal mood and affect. EXTREMITIES: No calf tenderness bilaterally. No pitting edema bilaterally. INCISION: clean, dry, intact. No discharge or active bleeding. Labs: WBC (10*3/L) Date Value 07/22/2019 13.91 (H) 07/20/2019 12.18 (H) 07/18/2019 13.79 (H) HGB (g/dL) Date Value 07/22/2019 10.2 (L) 07/20/2019 11.0 (L) 07/18/2019 10.6 (L) HCT (%) Date Value 07/22/2019 32.3 (L) 07/20/2019 33.7 (L) 07/18/2019 31.7 (L) PLT (10*3/L) Date Value 07/22/2019 243 07/20/2019 239 07/18/2019 218 AST(SGOT) (U/L) Date Value 07/20/2019 21 07/18/2019 23 ALTv (U/L) Date Value 07/20/2019 9 07/18/2019 12 CREATININE (mg/dL) Date Value 07/20/2019 0.51 07/18/2019 0.52 PROTEIN (no units) Date Value 07/20/2019 Negative 07/01/2019 Negative Medications: Current Facility-Administered Medications Medication Dose Route Frequency Last Rate Last Dose bisacodyL (DULCOLAX) suppository 10 mg 10 mg Rectal QDAILYPRN docusate calcium (SURFAK) capsule 240 mg 240 mg Oral QDAILYPRN gabapentin (NEURONTIN) capsule 300 mg 300 mg Oral TID 300 mg at 07/21/192008 [START ON 07/23/2019] ibuprofen (IBU) tablet 600 mg 600 mg Oral Q6H ABX ketorolac (TORADOL) injection 30 mg 30 mg Slow IV Push Q6H ABX 30 mg at 07/22/19 0552 magnesium hydroxide (MILK OF MAGNESIA) 400 mg/5 mL suspension 30 mL 30 mL Oral QDAILYPRN naloxone (NARCAN) injection 0.4 mg 0.4 mg Slow IV Push PRN - SEE INSTRUCTIONS rho(D) immune globulin (RHOGAM) syringe 300 mcg 300 mcg Intramuscular ONCE simethicone (GAS RELIEF (SIMETHICONE)) chewable tablet 160 mg 160 mg Oral PC+HS 160 mg at 07/21/195 ASSESSMENT Natanael Harris is a 24 year old female s/p repeat C-sec with bilateral tubal ligation, post-op day #1. Patient is recovering well: responding appropriately, good urine output, adequate pain control, and stable vitals. PLAN Doing well. Continue routine post-op care Anticipate discharge home tomorrow if remains stable Prasanna Vargas MD 07/22/2019 8:13 AM documented in this encounter Plan of Treatment Name Type Priority Associated Diagnoses Date/Time SURGICAL PATHOLOGY EXAM LAB Routine 07/21/2019 11:51 AM CDT SURGICAL PATHOLOGY EXAM LAB Routine 07/21/2019 11:51 AM CDT Name Type Priority Associated Diagnoses Order Schedule SURGICAL PATHOLOGY EXAM LAB Routine ONCE for 1 Occurrences starting 07/21/2019 until 07/21/2019, 1 completed SURGICAL PATHOLOGY EXAM LAB Routine ONCE for 1 Occurrences starting 07/21/2019 until 07/21/2019, 1 completed Health Maintenance Due Date Last Done Comments [...] Associated Comments Diagnosis CBC WITH DIFFERENTIAL Routine 07/22/2019 4:02 Results for this AM CDT procedure are in the results section. CBC WITH DIFFERENTIAL Routine 07/22/2019 4:02 Results for this AM CDT procedure are in the results section. VENOUS CORD GAS Routine 07/21/2019 11:44 Results for this AM CDT procedure are in the results section. ARTERIAL CORD GAS Routine 07/21/2019 11:44 Results for this AM CDT procedure are in the results section. TUBAL LIGATION 07/21/2019 10:08 24yo @ 39.1 wbd AM CDT PrevX1 for ERCS w/BTL SECTION 07/21/2019 10:08 24yo @ 39.1 wbd AM CDT PrevX1 for ERCS w/BTL HIV 1/2 AG-AB WITH Routine 07/21/2019 8:05 Results for this REFLEX AM CDT procedure are in the results section. ADC OR ELAINE ONLY - [place] 07/21/2019 8:05 Results for this RPR AM CDT procedure are in the results section. RHO (D) IMMUNE Routine 07/21/2019 8:05 Results for this GLOBULIN AM CDT procedure are in the results section. HB ABO GROUPING [place] 07/21/2019 8:05 Results for this AM CDT procedure are in the results section. HEPATITIS B SURFACE [place] 07/21/2019 8:05 Results for this ANTIGEN AM CDT procedure are in the results section. CBC WITH DIFFERENTIAL STAT 07/20/2019 6:09 Results for this PM CDT procedure are in the results section. CBC WITH DIFFERENTIAL STAT 07/20/2019 6:09 Results for this PM CDT procedure are in the results section. COMP. METABOLIC PANEL STAT 07/20/2019 6:09 Results for this (46940) PM CDT procedure are in the results section. LIPASE STAT 07/20/2019 6:09 Results for this PM CDT procedure are in the results section. AMYLASE STAT 07/20/2019 6:09 Results for this PM CDT procedure are in the results section. URINALYSIS STAT 07/20/2019 5:58 Results for this PM CDT procedure are in the results section. ADC CLC OR LCC ONLY - STAT 07/20/2019 4:57 Results for this WET PREP PM CDT procedure are in the results section. documented in this encounter Results CBC WITH DIFFERENTIAL (07/22/2019 4:02 AM CDT) WBC 13.91 (H) 4.30 - 11.10 [facility] 10*3/L [facility] RBC 3.66 (L) 3.93 - 5.25 [facility] 10*6/L [facility] HGB 10.2 (L) 11.6 - 15.0 [facility] g/dL [facility] HCT 32.3 (L) 35.7 - 45.2 % [facility] MCV 88.3 80.6 - 95.5 fL [facility] MCH 27.9 25.9 - 32.8 pg [facility] MCHC 31.6 31.6 - 35.1 [facility] g/dL [facility] RDW-SD 44.7 39.0 - 49.9 fL [facility] RDW-CV 14.0 12.0 - 15.5 % [facility] PLT 243 166 - 358 [facility] 10*3/L [facility] MPV 10.4 9.5 - 12.9 fL [facility] NRBC/100 WBC 0.0 0.0 - 10.0 /100 [facility] WBCs [facility] NRBC x10^3 <0.01 10*3/L [facility] GRAN MAT (NEUT) % 68.8 % [facility] IMM GRAN % 1.20 % [facility] LYMPH % 21.1 % [facility] MONO % 6.3 % [facility] EOS % 2.2 % [facility] BASO % 0.4 % [facility] GRAN MAT x10^3(ANC) 9.57 (H) 1.88 - 7.09 [facility] 10*3/uL [facility] IMM GRAN x10^3 0.17 (H) 0.00 - 0.06 [facility] 10*3/uL [facility] LYMPH x10^3 2.94 1.32 - 3.29 [facility] 10*3/uL [facility] MONO x10^3 0.88 0.33 - 0.92 [facility] 103/uL [facility] EOS x10^3 0.30 0.03 - 0.39 [facility] 10*3/uL [facility] BASO x10^3 0.05 0.01 - 0.[address]/uL [facility] Specimen Blood - VENOUS Performing Organization Address City/[facility]/Zipcode Phone Number [facility] CLIA: [id number], [address] [place], [place] [address] [address] Venous Cord Gas (07/21/2019 11:44 AM CDT) VENOUS BASE EXCESS, -4.9 mEq/L [facility] VENOUS PH, CORD 7.25 7.25 - 7.45 [facility] VENOUS PC02, CORD 53 (H) 27 - 49 mmHg [facility] VENOUS PO2, CORD 15 (L) 17 - 41 mmHg [facility] VENOUS BICARBONATE, 23 12 - 29 mEq/L [facility] Specimen Blood - CORD Performing Organization Address City/[facility]/Zipcode Phone Number [facility] CLIA: [id number], [address] [place] [address] Arterial Cord Gas (07/21/2019 11:44 AM CDT) BASE EXCESS, CORD -10.2 mEq/L [facility] AC PH, CORD (BEAKER) 7.14 (L) 7.18 - 7.38 [facility] PC02, CORD 58 32 - 66 mmHg [facility] PO2, CORD 16 10 - 30 mmHg [facility] BICARBONATE, CORD 19 17 - 27 mEq/L [facility] Specimen Blood - CORD Performing Organization Address City/State/Zipcode Phone Number [facility] CLIA: [id number], [address] [place] [address] [phone] [facility] RHO (D) IMMUNE GLOBULIN (07/21/2019 8:05 AM CDT) RHIG CANDIDATE? No- see comment LAB Comment: Patient is not a candidate for RhIg- Patient is Rh Positive. Performed at [facility] - [facility] Blood [facility] [address] [place] [phone] Toll Free: [phone] CLIA No. [id number] Specimen Blood - VENOUS Performing Organization Address [facility] Cent[facility]ode Phone Number BLD LAB HIV 1/2 AG-AB WITH REFLEX (07/21/2019 8:05 AM CDT) HIV 1/2 Ag-Ab with Negative Negative [facility] LABORATORY HIV Semi-quantitative 0.07 [facility] Specimen Blood - HAND, LEFT Narrative Performed At Non-reactive for HIV-1 antigen and HIV-1/HIV-2 [facility] antibodies. No laboratory evidence of HIV infection. Repeat in 2-4 weeks if acute HIV infection is suspected. Performing Organization Address City/[facility]/Zipcode Phone Number [facility] CLIA: [id number], [address] [place] [address] [phone] [facility] ADC OR ELAINE ONLY - RPR (07/21/2019 8:05 AM CDT) RPR (Qualitative) Nonreactive Nonreactive [facility] Specimen Blood - HAND, LEFT Performing Organization Address City/[facility]/Zipcode Phone Number [facility] CLIA: [id number], [address] [place], [place] [id number] [phone] Hepatitis B Surface Antigen (07/21/2019 8:05 AM CDT) HBsAg Negative Negative [facility] HBsAg 0.04 [facility] Semi-Quantitative SERVICES Specimen Blood - HAND, LEFT Performing Organization Address City/State/Zipcode Phone Number [facility] CLIA: [id number], [address] [place], [place] [address] Type and Screen - ONCE [place] (07/21/2019 8:05 AM CDT) Pathologist [facility] ABO & RH A Positive LAB Comment: Performed at [facility] - [facility] [address] [place] [phone] Toll Free: [phone] CLIA No. [id number] IAT Negative LAB Comment: Performed at [facility] - [facility] [address] [place] [phone] Toll Free: [phone] CLIA No. [id number] Specimen Blood Performing Organization Address City/[facility]/Zipcode Phone Number BLD LAB CBC WITH DIFFERENTIAL (07/20/2019 6:09 PM CDT) [facility] WBC 12.18 (H) 4.30 - 11.10 [facility] 10*3/L [facility] RBC 3.96 3.93 - 5.25 [facility] 10*6/L [facility] HGB 11.0 (L) 11.6 - 15.0 [facility] g/dL [facility] HCT 33.7 (L) 35.7 - 45.2 % [facility] MCV 85.1 80.6 - 95.5 fL [facility] MCH 27.8 25.9 - 32.8 pg [facility] MCHC 32.6 31.6 - 35.1 [facility] g/dL [facility] RDW-SD 42.6 39.0 - 49.9 fL [facility] RDW-CV 13.7 12.0 - 15.5 % [facility] PLT 239 166 - 358 [facility] 10*3/L [facility] MPV 10.2 9.5 - 12.9 fL [facility] NRBC/100 WBC 0.0 0.0 - 10.0 /100 [facility] WBCs [facility] NRBC x10^3 <0.01 10*3/L [facility] GRAN MAT (NEUT) % 68.2 % [facility] IMM GRAN % 2.20 % [facility] LYMPH % 19.4 % [facility] MONO % 6.7 % [facility] EOS % 3.1 % [facility] BASO % 0.4 % [facility] GRAN MAT x10^3(ANC) 8.31 (H) 1.88 - 7.09 [facility] 10*3/uL HOSPITAL [facility] IMM GRAN x10^3 0.27 (H) 0.00 - 0.06 [facility] 10*3/uL HOSPITAL LAB[facility]ORY LYMPH x10^3 2.36 1.32 - 3.29 [facility] 10*3/uL HOSPITAL LAB[facility] MONO x10^3 0.81 0.33 - 0.92 [facility] 10*3/uL HOSPITAL LAB[facility]ATORY EOS x10^3 0.38 0.03 - 0.39 [facility] 10*3/uL H[facility]PITAL [facility] BASO x10^3 0.05 0.01 - 0.07 [facility] 10*3/uL HOSPITAL LABORATORY Specimen Blood - VENOUS Performing Organization Address City/[facility]/Zipcode Phone Number [facility] CLIA: [id number], [address] [place] [address] LIPASE (07/20/2019 6:09 PM CDT) LIPASE 56 0 - 220 U/L [facility] Specimen Blood - VENOUS Performing Organization Address City/[facility]/Zipcode Phone Number [facility] CLIA: [id number], [address] [place] [address] [phone] [address] AMYLASE (07/20/2019 6:09 PM CDT) MARTY 89 35 - 110 U/L [facility] Specimen Blood - VENOUS Performing Organization Address City/[facility]/Zipcode Phone Number [facility] CLIA: [id number], [address], [place] [phone] [address] COMP. METABOLIC PANEL (62381) (07/20/2019 6:09 PM CDT) NA 136 135 - 145 [facility] mmol/L [facility] K 3.7 3.5 - 5.0 [facility] mmol/L [facility] CL 108 98 - 108 mmol/L [facility] CO2 TOTAL 19 (L) 23 - 31 mmol/L [facility] AGAP 9 2 - 16 [facility] BUN 7 7 - 23 mg/dL [facility] GLUCOSE 81 70 - 110 mg/dL [facility] CREATININE 0.51 0.50 - 1.04 [facility] mg/dL [facility] TOTAL BILI 0.4 0.1 - 1.1 mg/dL [facility] CALCIUM 8.8 8.6 - 10.6 [facility] mg/dL [facility] T PROTEIN 7.0 6.3 - 8.2 g/dL [facility] ALBUMIN 3.7 3.5 - 5.0 g/dL [facility] ALK PHOS 161 (H) 34 - 122 U/L [facility] ALTv 9 5 - 35 U/L [facility] AST(SGOT) 21 13 - 40 U/L [facility] eGFR Calculation 148.2 mL/min/1.73m2 [facility] eGFR Calculation 179.6 mL/min/1.73m2 [facility] () [facility] Specimen Blood - VENOUS Narrative Performed At Association of Glomerular Filtration Rate (GFR) [facility] and Staging of Kidney Disease* + [...] abnormalities in imaging tests). Performing Organization Address [facility]/Zipcode Phone Number [facility] CLIA: [id number], [address], [place] [phone] [address] URINALYSIS (07/20/2019 5:58 PM CDT) APPEARANCE Clear Clear [facility] COLOR Yellow Yellow [facility] PH 7.0 4.8 - 8.0 [facility] SP GRAVITY 1.010 1.003 - 1.030 [facility] GLU U QUAL Normal Normal [facility] BLOOD Negative Negative [facility] KETONES Negative Negative [facility] PROTEIN Negative Negative [facility] UROBILIN Normal Normal [facility] BILIRUBIN Negative Negative [facility] NITRITE Negative Negative [facility] LEUK ANJELICA Negative Negative [facility] RBC/HPF 1 0 - 3 HPF [facility] WBC/HPF 1 0 - 5 HPF [facility] BACTERIA Negative Negative [facility] MUCOUS Slight (A) Negative LPF [facility] SQ EPITH 3 HPF [facility] Specimen Urine - URINE, CLEAN CATCH Performing Organization Address [facility] Phone Number [facility] CLIA: [id number], [address] [place] [address] [phone] ADC [facility] OR [facility] ONLY - WET PREP (07/20/2019 4:57 PM CDT) Wet Prep No Clue cells present [facility] Wet Prep Numerous Epithelial [facility] cells [facility] Wet Prep Numerous Organisms [facility] LABORATORY Wet Prep No Trichomonas [facility] vaginalis present HOSPITAL LABORATORY Wet Prep Numerous WBC per [facility] high-power field [facility] Wet Prep No Yeast [facility] Specimen Fluid - VAGINA Performing Organization Address [facility] Phone Number [facility] CLIA: [id number], [address] [place] [address] [phone] documented in this encounter Visit Diagnoses Diagnosis Liveborn , of morel , born in hospital by delivery - Primary Supervision of high risk in third trimester Unspecified high-risk Multiparity History of delivery History of section Other postprocedural status History of Previous delivery, delivered, with or without mention of antepartum condition Anxiety during in second trimester, antepartum Asthma affecting in third trimester Gastroesophageal reflux in Tubal ligation status 37 weeks gestation of state, incidental Normal labor documented in this encounter Administered Medications Medication Order MAR Action Action Date Dose Rate Site acetaminophen (TYLENOL) tablet Given 07/23/2019 11:41 AM CDT 650 mg 650 mg 650 mg, Oral, Q6H, First dose on Sat07/23/19 at 0615, Until Discontinued, Routine Given 07/23/2019 6:15 AM CDT 650 mg diphenhydrAMINE (BENADRYL) tablet 25 mg 25 mg, Oral, Q6HPRN, Starting Sat07/22/19 at 2228, Until Discontinued, Routine , Itching gabapentin (NEURONTIN) capsule 300 mg Given 07/23/2019 3:21 PM CDT 300 mg 300 mg, Oral, TID, First dose on Sat07/21/19 at 1400, Until Discontinued, Routine Given 07/23/2019 7:51 AM CDT 300 mg Given 07/22/2019 9:38 PM CDT 300 mg ibuprofen (IBU) tablet 600 mg Given 07/23/2019 11:42 AM CDT 600 mg 600 mg, Oral, Q6H ABX, First dose on Sat07/23/19 at 0600, Until Discontinued, Routine Given 07/23/2019 6:15 AM CDT 600 mg simethicone (GAS RELIEF (SIMETHICONE)) Given 07/23/2019 10:16 AM CDT 160 mg chewable tablet 160 mg 160 mg, Oral, PC+HS, First dose on Sat07/21/19 at 1800, Until Discontinued, Routine Given 07/22/2019 9:38 PM CDT 160 mg Given 07/22/2019 4:34 PM CDT 160 mg Medication Order MAR Action Action Date Dose Rate Site acetaminophen ADULT (OFIRMEV) Given 07/22/2019 5:20 AM CDT 1,000 mg injection 1,000 mg 1,000 mg, IV Infusion, Administer over 15 Minutes, Q6H, 4 doses, First dose on Sat07/21/19 at 1400, Last dose on Sat07/22/19 at 0600, Routine, Indication: Perioperative Patient Given 07/21/2019 11:39 PM CDT 1,000 mg Given 07/21/2019 6:14 PM CDT 1,000 mg Right Arm azithromycin (ZITHROMAX) 500 mg in NaCl 0.9% Given 07/21/2019 10:11 AM CDT 500 mg (NS) 250 mL VIAL-MATE IV piggyback 500 mg, IV Piggyback, O.R. 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, Duration of therapy: within 24 hours of surgery D5W-LR IV infusion 1,000 mL New Bag 07/21/2019 2:36 AM CDT 1,000 mL 125 mL/hr at 125 mL/hr, IV Infusion, CONTINUOUS, Starting Sat07/21/19 at 0345, Until Sat07/21/19 at 1359, Routine D5W-LR IV infusion 1,000 mL New Bag 07/21/2019 10:12 AM CDT 1,000 mL 125 mL/hr at 125 mL/hr, IV Infusion, CONTINUOUS, Starting Sat07/21/19 at 0745, Until Sat07/21/19 at 1359, Routine diphenhydrAMINE (BENADRYL) tablet 50 mg Given 07/22/2019 10:37 PM CDT 50 mg 50 mg, Oral, ONCE NOW, 1 dose, Sat07/22/19 at 2345, Routine famotidine (PEPCID (PF)) injection 20 mg Given 07/20/2019 7:26 PM CDT 20 mg 20 mg, Slow IV Push, Q12H, First dose on Sat07/20/19 at 2000, Until Discontinued, Routine FENTanyl PF (SUBLIMAZE (PF)) injection 100 Given 07/21/2019 8:31 AM CDT 100 mcg mcg 100 mcg, Slow IV Push, ONCE, 1 dose, Sat07/21/19 at 0830, Routine FENTanyl PF (SUBLIMAZE (PF)) injection 50 Given 07/22/2019 5:25 AM CDT 50 mcg mcg 50 mcg, Slow IV Push, Q3HPRN, 4 doses, Starting Sat07/21/19 at 1530, Until Sat07/22/19 at 0525, Routine, Pain (scale 7-10) Given 07/22/2019 1:59 AM CDT 50 mcg Given 07/21/2019 8:01 PM CDT 50 mcg FENTanyl PF (SUBLIMAZE (PF)) injection 75 Given 07/20/2019 6:12 PM CDT 75 mcg mcg 75 mcg, Slow IV Push, ONCE, 1 dose, Sat07/20/19 at 1900, Routine HYDROcodone-acetaminophen (NORCO 5) 5-325 Given 07/23/2019 12:38 AM CDT 1 tablet mg tablet 1 tablet 1 tablet, Oral, ONCE, 1 dose, Sat07/23/19 at 0030, Routine ketorolac (TORADOL) injection 30 mg Given 07/22/2019 11:59 PM CDT 30 mg 30 mg, Slow IV Push, Q6H ABX, 4 doses, First dose on Sat07/22/19 at 0600, Last dose on Sat07/23/19 at 0000, Routine, cruise staff member approving Restricted medication: PRASANNA VARGAS Given 07/22/2019 5:56 PM CDT 30 mg Given 07/22/2019 11:49 AM CDT 30 mg Right Arm lactated ringers IV infusion New Bag 07/20/2019 6:12 PM CDT 1,000 mL 999 mL/hr 1,000 mL at 999 mL/hr, 1,000 mL, IV Infusion, ONCE, 1 dose, Sat07/20/19 at 1900, STAT LR 1000 mL + oxytocin 20 units IV Given 07/21/2019 2:11 PM CDT 125 mL/hr Solution at 125 mL/hr, IV Infusion, ONCE, 1 dose, 3/10/20 at 1400, [place] nalbuphine (NUBAIN) injection 10 mg Given 07/20/2019 8:55 PM CDT 10 mg 10 mg, Intravenous, ONCE, 1 dose, 07/20/19 at 2145, Routine nalbuphine (NUBAIN) injection 5 mg Given 07/21/2019 11:44 PM CDT 5 mg 5 mg, Intravenous, PRN, 1 dose, Starting Sat07/21/19 at 1358, Until Sat07/21/19 at 2344, Routine, Itching, PACU ondansetron (ZOFRAN (PF)) injection 4 mg Given 07/20/2019 6:12 PM CDT 4 mg 4 mg, Slow IV Push, ONCE, 1 dose, Sat07/20/19 at 1900, Routine ondansetron (ZOFRAN (PF)) injection 4 mg Given 07/21/2019 2:12 PM CDT 4 mg 4 mg, Slow IV Push, ONCE, 1 dose, Sat07/21/19 at 1400, Routine, PACU proMETHazine (PHENERGAN) 25 mg in Given 07/21/2019 4:58 PM CDT 25 mg Right Arm NaCl 0.9% (NS) 50 mL IV piggyback 25 mg, IV Piggyback, ONCE, 1 dose, Sat07/21/19 at 1700, Routine proMETHazine (PHENERGAN) 25 mg in NaCl 0.9% Given 07/20/2019 8:55 PM CDT 25 mg (NS) 50 mL piggyback 25 mg, IV Piggyback, ONCE, 1 dose, 07/20/19 at 2145, 50 mL proMETHazine (PHENERGAN) 25 mg in NaCl 0.9% Given 07/22/2019 6:15 PM CDT 25 mg (NS) 50 mL piggyback 25 mg, IV Piggyback, ONCE, 1 dose, 07/22/19 at 1815, 50 mL sodium citrate-citric acid (BICITRA) 500-334 Given 07/21/2019 10:13 AM CDT 30 mL mg/5 mL solution 30 mL 30 mL, Oral, PRE-PROCEDURE ONCE, 1 dose, Starting Sat07/21/19 at 0732, Until Sat07/21/19 at 1013, Routine, Surgery documented in this encounter Insurance Payer Benefit Plan / Subscriber ID Effective Phone Address Type Group Dates SAMMY CHRISTIANSON xxxxxxxxx 2019- [address] Medicaid HEALTHCARE - [place]CARE [place] [id number] MANAGED MEDICAID [place], [place] documented as of this encounter"
--- OUTSIDE RECORDS SUMMARY | 2019-07-29 09:48 | XMS REPORT | Summary of Care ---
:1995 Author Organization [facility] Address [address] [place] [id number] Care Team Providers Name Role Phone Shelby Taylor [facility] Primary Care Provider Luke Baker Insurance Hmo Reason for Visit Reason Comments Assessment Encounter Details Date Type Department Care Team Description 07/27/2019 Telephone [facility] Shelby Taylor, Assessment [address] [place] [address] [address] [facility] [phone] [place] [address] Allergies Active Allergy Reactions Severity Noted Date Comments Metoclopramide Hcl Anxiety 07/12/2019 Patient says she gets figity, angry and mean documented as of this encounter (statuses as of 07/27/2019) Medications Medication Sig Dispensed Refills Start Date [...] Take 1 capsule 15 capsule 0 07/23/2019 07/28/2019 Active capsuleIndications: by mouth 3 Liveborn infant, of (three) times morel , daily for [...] tablet 3 07/23/2019 Active tabletIndications: by mouth daily. Liveborn , of morel , born in hospital by delivery, Supervision of high risk in third trimester, Multiparity, History of delivery, History of section, History of , Anxiety during in second trimester, antepartum, Asthma affecting in third trimester, Gastroesophageal reflux in , Tubal ligation status, 37 weeks gestation of , Normal labor docusate calcium 240 mg Take 1 capsule 30 capsule 1 07/23/2019 Active capsuleIndications: by mouth once Liveborn , of daily as needed morel , for born in hospital by Constipation. delivery, Supervision of high risk in third trimester, Multiparity, History of delivery, History of section, History of , Anxiety during in second trimester, antepartum, Asthma affecting in third trimester, Gastroesophageal reflux in , Tubal ligation status, 37 weeks gestation of , Normal labor ferrous sulfate 325 mg Take 1 tablet 60 tablet 2 07/23/2019 Active (65 mg iron) by mouth 2 tabletIndications: (two) times Liveborn , of daily. morel , born in hospital [...] 37 weeks gestation of , Normal labor documented as of this encounter (statuses as of 07/27/2019) Active Problems Problem Noted Date Liveborn infant, [...] History of section 02/06/2019 History of 02/06/2019 documented as of this encounter (statuses as of 07/27/2019) Resolved Problems Problem Noted Date Resolved Date [...] as of this encounter (statuses as of 07/27/2019) Immunizations Name Administration Dates Next Due Influenza [...] more drinks on one occasion? Not asked Sex Assigned at Date Recorded Not on file Job Start Date Occupation Industry Not on file Not on file Not on file Travel History Travel Start Travel End No recent travel history available. documented as of this encounter Last Filed Vital Signs Not on filedocumented in this encounter Plan of Treatment Health Maintenance Due Date Last Done Comments [...] Alisson RYAN Medicaid HEALTHCARE [place]ARE [place] [id number] MANAGED MEDICAID [place], [place] documented as of this encounter
--- OUTSIDE RECORDS SUMMARY | 2019-07-29 09:49 | XMS REPORT | Summary of Care ---
:1995 Author Organization [facility] Address [address] [place] [address] Care Team Providers Name Role Phone [facility] Primary [facility] Provider Luke Baker Insurance Hmo Encounter Details Date Type Department Care Team Description 07/27/2019 [facility] [address] [facility] [address] [place] [address] [facility] A [phone] [place] [address] Allergies Active Allergy Reactions Severity [...] 07/28/2019 Active capsuleIndications: by mouth 3 Liveborn , of (three) times morel , [...] 07/23/2019 Active tabletIndications: by mouth daily. Liveborn infant, of morel , born in [...] 07/23/2019 Active capsuleIndications: by mouth once Liveborn infant, of daily as needed morel , for [...] 07/27/2019) Active Problems Problem Noted Date Liveborn , of morel , born in [...] O BOX Medicaid HEALTHCARE - [place]CARE [place] [id number] MANAGED MEDICAID [place] documented as of this encounter
--- NOTE | 2019-07-29 10:54 | RAD REPORT ---
EXAM DESCRIPTION: US - Pelvis Complete - 07/29/2019 10:44 am CLINICAL HISTORY: post ;Abd pain COMPARISON: No comparisons TECHNIQUE: Transabdominal pelvic sonography was performed. FINDINGS: Prominent sized uterus is present not unexpected for recent . Trace amount of flu id or blood in the endometrial cavity also not unexpected. No evidence for myometrial wall hematoma n ear the incision site. There is no blood or fluid in the cul de sac. Neither ovary could be clearly i dentified due to bowel. No adnexal mass or fluid collections seen. Edema is seen in the abdominal wall in the incision site. This is not unexpected. No abdominal wall h ematoma, mass or abscess identifiable at this time. IMPRESSION: No blood or fluid in the cul de sac. No suspicious uterine finding. Nonvisualization of the ovaries. No adnexal abnormality.
[2019-07-29] MEDS ORDERED: HYDROCODONE/APAP 10/325 TAB ONE (11:01)
--- NOTE | 2019-07-29 11:22 | ER ---
Nurse's Notes [facility] Name: Natanael Dyson Age: 24 yrs Sex: Female : 1995 Arrival Date: 07/29/2019 Time: 09:34 Bed 18 Private MD: Diagnosis: Lower abdominal pain, unspecified-post Presentation: 07/28 09:45 Chief complaint: Patient states: Had a c section last now has tenderness and ss areas where incision seems to have "popped open". Also c/o back soreness. Pt believes it is due to the difficult time the anesthesiologist had placing her epidural. Coronavirus screen: The patient has NOT traveled to a country currently being monitored by the [facility] within the last 14 days. Proceed with normal triage procedures. Ebola Screen: Patient denies exposure to infectious person. Patient denies travel to an Ebola-affected area in the 21 days before illness onset. Initial Sepsis Screen: Does the patient meet any 2 criteria? No. Patient's initial sepsis screen is negative. Does the patient have a suspected source of infection? Yes: No. Patient's initial sepsis screen is negative. Risk Assessment: Do you want to hurt yourself or someone else? Patient reports no desire to harm self or others. 09:45 Method Of Arrival: Ambulatory ss 09:45 Acuity: THIERNO 3 ss 11:32 Onset of symptoms is unknown. 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 - Social history:: Smoking status: Patient denies any tobacco usage or history of. Screenin:00 Abuse screen: Denies threats or abuse. Denies injuries from another. Nutritional jl7 screening: No deficits noted. On. Tuberculosis screening: No symptoms or risk factors identified. Fall Risk None identified. Assessment: 10:00 General: Appears in no apparent distress. uncomfortable, Behavior is calm, cooperative, jl7 appropriate for age. Pain: Complains of pain in lumbar area Pain currently is 9 out of 10 on a pain scale. Neuro: Level of Consciousness is awake, alert, obeys commands, Oriented to person, place, time, situation, Moves all extremities. Full function. Cardiovascular: Patient's skin is warm and dry. Respiratory: Airway is patent Respiratory effort is even, unlabored, Respiratory pattern is regular, symmetrical. Derm: Skin is pink, warm \\T\\ dry. 11:10 Reassessment: Patient appears in no apparent distress at this time. Patient and/or jl7 family updated on plan of care and expected duration. Pain level reassessed. Patient is alert, oriented x 3, equal unlabored respirations, skin warm/dry/pink. Patient states symptoms have improved. Pain: Pain currently is 4 out of 10 on a pain scale. Vital Signs: 09:45 BP 124 / 90; Pulse 106; Resp 15; Temp 98.3(TE); Pulse Ox 100% on R/A; Weight 49.9 kg; ss Height 5 ft. 1 in. (154.94 cm); Pain 9/10; 11:10 BP 114 / 79; Pulse 88; Resp 16 S; Pulse Ox 98% on R/A; Pain 4/10; jl7 09:45 Body Mass Index 20.78 (49.90 kg, 154.94 cm) ED Course: 09:34 Patient arrived in ED. mr 09:42 Matty Bee RN is Primary Nurse. jl7 09:44 Bobbi Vang FNP-C is [facility]. kb 09:44 Miquel Rios MD is Attending Physician. kb 09:45 Arm band placed on right wrist. ss 09:47 Triage completed. ss 10:00 Patient has correct armband on for positive identification. Bed in low position. Call jl7 light in reach. Side rails up X 1. Pulse ox on. NIBP on. 10:46 US Pelvis Complete In Process Unspecified. EDMS 11:32 No provider procedures requiring assistance completed. Patient did not have IV access jl7 during this emergency room visit. Administered Medications: 10:20 Drug: Entiat 10 mg-325 mg 1 tabs Route: PO; jl7 11:10 Follow up: Response: No adverse reaction; Pain is decreased jl7 Outcome: 11:21 Discharge ordered by . kb 11:33 Discharged to home ambulatory. jl7 11:33 Condition: stable 11:33 Discharge instructions given to patient, Instructed on discharge instructions, follow up and referral plans. medication usage, Demonstrated understanding of instructions, follow-up care, medications, Prescriptions given X 11:33 Patient left the ED. jl7 Signatures: Dispatcher [employer] EDBobbi Ramachandran, ABBI HENDRICKS-Kymberly Shrestha mr Violeta Arthur, RN RN Matty Brambila RN RN jl7
--- NOTE | 2019-07-29 11:22 | EDPHYS ---
Physician Documentation [facility] Name: Natanael Dyson Age: 24 yrs Sex: Female : 1995 Arrival Date: 07/29/2019 Time: 09:34 Bed 18 Private MD: ED Physician Miquel Rios HPI: 07/28 10:38 This 24 yrs old Female presents to ER via Ambulatory with complaints of C kb section open, Back Pain. 10:38 The patient presents with abdominal pain in the left lower quadrant. Onset: The kb symptoms/episode began/occurred 7 day(s) ago. The symptoms do not radiate. Associated signs and symptoms: Pertinent positives: vaginal bleeding. The symptoms are described as constant. Modifying factors: The symptoms are alleviated by nothing, the symptoms are aggravated by movement, pressure. Severity of pain: At its worst the pain was moderate severe in the emergency department the pain is unchanged. The patient has not experienced similar symptoms in the past. The patient has not recently seen a physician. Pt reports she had a last and has had lower abd and back pain since then. Reports the back pain is due to epidural placement that took 3 attempts. States she has had significant lower abd pain, worse on the left, since delivery that is making it hard to hold her 5lb . States she called the [facility] and was told that she had to be seen by an ER before they would see her. Also reports the original bandage is in place over incision and it has 4 spots on it from drainage. States the dr told her it was probably open in those 4 spots so she needed to get it looked at as well. 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 - Social history:: Smoking status: Patient denies any tobacco usage or history of. ROS: 10:22 Constitutional: Negative for fever, chills, and weight loss, ENT: Negative for injury, kb pain, and discharge, Neck: Negative for injury, pain, and swelling, Cardiovascular: Negative for chest pain, palpitations, and edema, Respiratory: Negative for shortness of breath, cough, wheezing, and pleuritic chest pain, : Negative for injury, bleeding, discharge, and swelling, MS/Extremity: Negative for injury and deformity, Skin: Negative for injury, rash, and discoloration, Neuro: Negative for headache, weakness, numbness, tingling, and seizure. 10:22 Abdomen/GI: Positive for abdominal pain, Negative for nausea, vomiting, and diarrhea, constipation. 10:22 Back: Positive for pain at rest, pain with movement, of the lumbar area. Exam: 10:23 Constitutional: This is a well developed, well nourished patient who is awake, alert, kb and in no acute distress. Head/Face: Normocephalic, atraumatic. ENT: Nares patent. No nasal discharge, no septal abnormalities noted. Tympanic membranes are normal and external auditory canals are clear. Oropharynx with no redness, swelling, or masses, exudates, or evidence of obstruction, uvula midline. Mucous membranes moist. Neck: Trachea midline, no thyromegaly or masses palpated, and no cervical lymphadenopathy. Supple, full range of motion without nuchal rigidity, or vertebral point tenderness. No Meningismus. Chest/axilla: Normal chest wall appearance and motion. Nontender with no deformity. No lesions are appreciated. Cardiovascular: Regular rate and rhythm with a normal S1 and S2. No gallops, murmurs, or rubs. Normal PMI, no JVD. No pulse deficits. Respiratory: Lungs have equal breath sounds bilaterally, clear to auscultation and percussion. No rales, rhonchi or wheezes noted. No increased work of breathing, no retractions or nasal flaring. Back: No spinal tenderness. No costovertebral tenderness. Full range of motion. Skin: Warm, dry with normal turgor. Normal color with no rashes, no lesions, and no evidence of cellulitis. MS/ Extremity: Pulses equal, no cyanosis. Neurovascular intact. Full, normal range of motion. Neuro: Awake and alert, GCS 15, oriented to person, place, time, and situation. Cranial nerves II-XII grossly intact. Motor strength 5/5 in all extremities. Sensory grossly intact. Cerebellar exam normal. Normal gait. 10:23 Abdomen/GI: Inspection: incision to suprapubic area intact with no dehiscence , Bowel sounds: normal, in all quadrants, Palpation: soft, in the right upper quadrant and left upper quadrant, moderate abdominal tenderness, in the left lower quadrant. Vital Signs: 09:45 BP 124 / 90; Pulse 106; Resp 15; Temp 98.3(TE); Pulse Ox 100% on R/A; Weight 49.9 kg; ss Height 5 ft. 1 in. (154.94 cm); Pain 9/10; 11:10 BP 114 / 79; Pulse 88; Resp 16 S; Pulse Ox 98% on R/A; Pain 4/10; jl7 09:45 Body Mass Index 20.78 (49.90 kg, 154.94 cm) ss MDM: 09:44 Patient medically screened. kb 10:22 Data reviewed: vital signs, nurses notes. Data interpreted: Pulse oximetry: on room air kb is 100 %. Interpretation: normal. 11:21 Counseling: I had a detailed discussion with the patient and/or guardian regarding: the kb historical points, exam findings, and any diagnostic results supporting the discharge/admit diagnosis, radiology results, the need for outpatient follow up, an OB/Gyne specialist, to return to the emergency department if symptoms worsen or persist or if there are any questions or concerns that arise at home. 07/28 10:13 Order name: US Pelvis Complete; Complete Time: 11:20 kb Administered Medications: 10:20 Drug: [place] 10 mg-325 mg 1 tabs Route: PO; jl7 11:10 Follow up: Response: No adverse reaction; Pain is decreased jl7 Disposition: 13:32 Co-signature as Attending Physician, Miquel Rios MD I agree with the assessment and kdr plan of care. Chart complete. Disposition: 07/29/19 11:21 Discharged to Home. Impression: Lower abdominal pain, unspecified - post . - Condition is Stable. - Discharge Instructions: Delivery, Care After. - Medication Reconciliation Form, Thank You Letter, Antibiotic Education, Prescription Opioid Use form. - Follow up: Emergency Department; When: As needed; Reason: Worsening of condition. Follow up: Private Physician; When: 2 - 3 days; Reason: Recheck today's complaints, Continuance of care, Re-evaluation by your physician. Signatures: Dispatcher [employer] Bobbi Guzman FNP-C DELICATESSEN GOODS STOCK CLERK-Ckb Miquel Rios MD MD [facility] Violeta Arthur, ROSEY RN ss Matty Bee RN RN jl7 Corrections: (The following items were deleted from the chart) 11:33 11:21 07/29/2019 11:21 Discharged to Home. Impression: Lower abdominal pain, jl7 unspecified - post . Condition is Stable. Forms are Medication Reconciliation Form, Thank You Letter, Antibiotic Education, Prescription Opioid Use. Follow up: Emergency Department; When: As needed; Reason: Worsening of condition. Follow up: Private Physician; When: 2 - 3 days; Reason: Recheck today's complaints, Continuance of care, Re-evaluation by your physician. kb
[2019-07-29 12:06] VITALS: TEMP 98.3
[2019-07-29 12:30] VITALS: BP 114/79; O2SAT 98
== END 2019-07-29 11:33 | disposition home or self-care (01) ==
LOC: ER 09:30
DX: R10.30 Lower abdominal pain, unspecified (principal); M54.5 Low back pain; Z98.890 Other specified postprocedural states
CPT/HCPCS: 76856; 99284

== ENCOUNTER 2019-10-18 15:58 | Emergency (ER) | payer MEDICAID ==
--- OUTSIDE RECORDS SUMMARY | 2019-10-18 16:01 | XMS REPORT | Continuity of Care Document ---
:1995 Author Organization [facility] t Address [address] [place] [address] Care Team Providers Name Role Phone Jm Quiñonez MD Attending Clinician Jessica Garcia Attending Clinician Sukhjinder MCCRACKEN Attending Clinician Doctor Unassigned, Name Attending Clinician Unavailable Problems This patient has no known problems. Allergies, Adverse Reactions, Alerts This patient has no known allergies or adverse reactions. Medications This patient has no known medications. Procedures This patient has no known procedures. Encounters Start End Encounter Admission Attending Care Care Encounter Source Date/Time Date/Time Type Type Clinicians Facility Department ID 2019-09-15 2019-09-15 Patient Shelia Quiñonez [facility] [id number] 00:00:00 00:00:00 Secure Msg [facility] [id number] [place] [id number] Professio [id number] 2019-09-02 2019-09-[address] [facility] [id number] 09:29:56 09:44:56 ne Visit Shelby Lopez HOTEL DESK CLERK [id number] [facility] [id number] MATERNAL [id number] & CHILD [address] [place] [address] 2019-09-02 2019-09-02 Telephone Brandon PRDAISY [id number] 00:00:00 00:00:00 Shelby C HOTEL DESK CLERK [id number] REGIONAL [id number] MATERNAL [id number] & CHILD [address] [facility] 2019-08-31 2019-08-31 Telephone Shelia Quiñonez [facility] [id number] 00:00:00 00:00:00 Cam Maurice [id number] [place] [id number] Professio [id number] 2019-08-26 2019-08-26 Telephone Shelia Quiñonez [facility] [id number] 00:00:00 00:00:00 Cam Maurice [id number] [place] [id number] Professio [id number] 2019-08-18 2019-08-18 Patient Shelia Quiñonez [facility] [id number] 00:00:00 00:00:00 Secure Msg Jm Richards [id number] [place] [id number] Professio [id number] 2019-08-14 2019-08-[address] [facility] [id number] 08:47:12 09:02:12 ne Visit Suzanna Lauraton [id number] [place] [id number] Professio [id number] 2019-08-13 2019-08-13 Telemedici Brandon PRDAISY [id number] 08:51:20 11:54:59 ne Visit Shelby Lopez HOTEL DESK CLERK [id number] [facility] [id number] MATERNAL [id number] & CHILD [address] [facility] 2019-08-13 2019-08-[address] [facility] [id number] 00:00:00 00:00:00 Management Suzanna Richards [id number] [place] [id number] Professio [id number] 2019-08-13 2019-08-13 Telephone Shelia Quiñonez [facility] [id number] 00:00:00 00:00:00 Cam Baldwyn [id number] [place] [id number] Professio [id number] [address] 2019-08-13 2019-08-[address] [facility] [id number] 00:00:00 00:00:00 Secure Msg Unassigned, HOTEL DESK CLERK [id number] [place] REGIONAL [id number] MATERNAL [id number] & CHILD [address] [facility] 2019-08-13 2019-08-13 Patient Shelia Quiñonez [facility] [id number] 00:00:00 00:00:00 Secure Msg Jm Baldwyn [id number] [place] [id number] Professio [phone] 2019-08-10 2019-08-[address] [facility] [id number] 00:00:00 00:00:00 Shelby C HOTEL DESK CLERK [id number] [facility] [id number] MATERNAL [id number] & CHILD [address] [facility] 2019-08-10 2019-08-[address] [facility] [id number] 00:00:00 00:00:00 Shelby C HOTEL DESK CLERK [id number] [place] [id number] MATERNAL [id number] & CHILD [address] [facility] Results This patient has no known results.
--- OUTSIDE RECORDS SUMMARY | 2019-10-18 16:06 | XMS REPORT | Summary of Care ---
:1995 Author Organization [facility] Address [address] [place] [address] Care Team Providers Name Role Phone Jessica Taylor Primary Care Provider Jessica Baker Insurance Hmo Reason for Visit Reason Comments Appointment reschedule post appt Encounter Details Date Type Department Care Team Description 08/10/2019 Telephone [facility]- Venu Taylorilola Mathew ointment EARNEST Aguilar (reschedule post [address] [place] [address] appt) [facility] [id number] [place] [address] Allergies Active Allergy Reactions Severity Noted Date Comments Metoclopramide Hcl Anxiety 07/12/2019 Patient s ays she gets figity, angry and mean documented as of this encounter (statuses as of 08/10/2019) Medications Medication Sig Dispensed Refills Start Date End Date Status ALBUTEROL 90 INHALE 2 PUFFS 7 Each 3 05/26/2019 A ctive mcg/actuation BY MOUTH EVERY 6 inhalerIndications: HOURS NEEDED Asthma affecting FOR WHEEZING FOR in second SHORTNESS OF trimester BREATH buPROPion SR Take 1 tablet by 60 tablet 3 05/21/2019 Active (WELLBUTRIN SR) 150 mg mouth 2 (two) SR tabletIndications: times daily. Depression affecting in third trimester, antepartum busPIRone 10 mg Take 1 tablet by 90 tablet 3 05/21/2019 Active tabletIndications: mouth 3 (three) Anxiety during times daily. in third trimester, antepartum acetaminophen 325 mg Take 2 tablets 30 tablet 1 07/23/2019 Active tabletIndications: by mouth every 6 Liveborn infant, of (six) hours as morel , needed for Pain born in hospital by (scale 1-3) or delivery, Pain (scale Supervision of high 4-6). risk in third trimester, Multiparity, History of delivery, History of section, History of , Anxiety during in second trimester, antepartum, Asthma affecting in third trimester, Gastroesophageal reflux in , Tubal ligation status, 37 weeks gestation of , Normal labor vitamin w/FA Take 1 tablet by 100 tablet 3 07/23/2019 Active tabletIndications: mouth daily. Liveborn , of morel , [...] sulfate 325 mg Take 1 tablet by 60 tablet 2 07/23/2019 Active (65 mg iron) mouth 2 (two) tabletIndications: times daily. Liveborn infant, of morle , born in hospital by delivery, Supervision of high risk in third trimester, Multiparity, History of delivery, History of section, History of , Anxiety during in second trimester, antepartum, Asthma affecting in third trimester, Gastroesophageal reflux in , Tubal ligation status, 37 weeks gestation of , Normal labor ibuprofen 600 mg Take 1 tablet by 30 tablet 1 07/23/2019 Active tabletIndications: mouth every 6 Liveborn infant, of (six) hours as morel , needed (Pain). born in hospital by Take with food delivery, or milk. Supervision of high risk in third trimester, Multiparity, History of delivery, History of section, History of , Anxiety during in second trimester, antepartum, Asthma affecting in third trimester, Gastroesophageal reflux in , Tubal ligation status, 37 weeks gestation of , Normal labor documented as of this encounter (statuses as of 08/10/2019) Active Problems Problem Noted Date [facility], [facility] morel , [facility] 07/[facility] delivery Normal labor 07/21/2019 Cervical Papanicolaou smear negative within last 12 mo [facility] 06/19/2019 Overview: 12/2018 NIL pap , see scanned records 37 weeks gestation of 05/14/2019 Gastroesophageal reflux in 05/08/2019 Tubal ligation status 05/08/2019 Anxiety during in second trimester, antepart um 04/16/2019 Asthma affecting in third trimester 04/16/20 19 Supervision of high risk in third trimester 02/06/2019 Multiparity 02/06/2019 History of delivery 02/06/2019 Overview: History of [facility] inj History of section 02/06/2019 History of 02/06/2019 documented as of this encounter (statuses as of 08/10/2019) Resolved Problems Problem Noted Date Resolved Date IUGR (intrauterine growth restriction) affecting care of 03/202007/21/2019 mother, third trimester, fetus 1 Body aches 06/23/2019 07/21/2019 Upper respiratory tract infection, unspecified type 06/23/19 20 07/21/2019 Pain of round ligament during 06/04/2019 07/21/2019 Previous delivery affecting , antepartum 0 05/31/2019 07/21/2019 uterine contractions 05/30/2019 07/21/2019 39 weeks gestation of 05/29/2019 05/30/19 20 Threatened labor, third trimester 05/28/2019 07/21/2019 uterine contractions in second trimester, antepartum 05/14/2019 05/28/2019 BV (bacterial vaginosis) 05/14/2019 07/21/2019 Anemia of mother in , antepartum 05/11/2019 07/21/2019 Candidiasis of vulva and vagina 03/30/2019 05/28/19 20 documented as of this encounter (statuses as of 08/10/2019) Immunizations Name Administration Dates Next Due Influenza [...] six or more drinks on one occasion? No t asked Sex Assigned at Date Recorded Not [...] 02/19/2016 HPV VACCINES (1 - Female 03/02/2020 Postpon ed from 2-dose series) 2006 (Preg nant or ) CHLAMYDIA SCREENING 07/12/2020 07/13/2019, 06/17/2019, 05/30/2019, Additional history exists DTaP,Tdap,and Td Vaccines 05/21/2029 05/21/2019 (2 - Td) INFLUENZA VACCINE Completed 02/06/2019 PNEUMOCOCCAL 0-64 YEARS Discontinued COMBINED SERIES documented as of this encounter Results Not on filedocumented in this encounter Insurance Payer Benefit Plan / Subscriber ID Effective Phone Address T e Group Dates SAMMY CHRISTIANSON xxxxxxxxx 2019-Pres [address] Medic aid [place] [id number] MANAGED MEDICAID [place], [place] documented as of this encounter
--- OUTSIDE RECORDS SUMMARY | 2019-10-18 16:07 | XMS REPORT | Summary of Care ---
:1995 Author Organization [facility] Address [address] [place] [address] Care Team Providers Name Role Phone Jessica Taylor BETTY Primary Care Provider Jessica Baker Insurance Hmo Reason for Visit Reason Comments Imaging Encounter Details Date Type Department Care Team Description 08/13/2019 Case Management [facility] Tamy Slaughter PA-C [facility] [place] [address] [facility] [address] [facility], [facility] [address] [place] [phone] Allergies Active Allergy Reactions Severity Noted Date Comments Metoclopramide Hcl Anxiety 07/12/2019 Patient s ays she gets figity, angry and mean documented as of this encounter (statuses as of 08/13/2019) Medications Medication Sig Dispensed Refills Start Date [...] Active tabletIndications: by mouth every 6 Liveborn , of (six) hours as morel , needed [...] 3 07/23/2019 Active tabletIndications: mouth daily. Liveborn infant, of morel , [...] (two) tabletIndications: times daily. Liveborn infant, of morel , born [...] as of this encounter (statuses as of 08/13/2019) Active Problems Problem Noted Date Liveborn infant, of morel , born in [facility] by 07/23/2019 delivery Normal labor 07/21/2019 Cervical Papanicolaou smear negative within last 12 mo [facility] 06/19/2019 Overview: 12/2018 NIL pap , [...] as of this encounter (statuses as of 08/13/2019) Resolved Problems Problem Noted Date Resolved Date [...] as of this encounter (statuses as of 08/13/2019) Immunizations Name Administration Dates Next Due Influenza [...] on filedocumented in this encounter Progress Notes Suzanna Slaughter PA-C - 08/13/2019 9:32 AM CDT Patient sent image of C section wound on 08/13/2019 via my chart. [facility]. Advised patient to keep FOLLOW-UP appointment. documented in this encounter Plan of Treatment Date Type Specialty Care Team Description 08/13/2019 Telemedicine Visit [facility] [address] [address] [phone] Health Maintenance Due Date Last Done Comments [...] BOX Medic aid HEALTHCARE [place]ARE [place] [id number] MANAGED MED[place]ID [place] documented as of this encounter
--- OUTSIDE RECORDS SUMMARY | 2019-10-18 16:07 | XMS REPORT | Summary of Care ---
:1995 Author Organization [facility] Address [address] [place] [address] Care Team Providers Name Role Phone Jessica Taylor Primary Care Provider Jessica Baker Insurance Hmo Reason for Visit Reason Comments Appointment reschedule post appt Encounter Details Date Type Department Care Team Description 08/10/2019 Telephone [facility]- Venu Taylorilola Mathew ointment EARNEST Aguilar (reschedule post [address] [place] [address] appt) [facility] [id number] [place] [address] Allergies Active Allergy Reactions Severity [...] [facility]born infant, of morel , [facility] 07/23[facility]2019 delivery Normal labor 07/21/2019 Cervical Papanicolaou smear negative within last 12 mo [facility] 06/19/2019 Overview: 12/2018 NIL pap , see [...] BOX Medic aid [place] [id number] MA[place]ED MED[place]ID [place] documented as of this encounter
--- OUTSIDE RECORDS SUMMARY | 2019-10-18 16:07 | XMS REPORT | Summary of Care ---
:[address] [facility] Address [address] [place] [address] Care Team Providers Name Role Phone Jessica Taylor BETTY Primary Care Provider Jessica Baker Insurance Hmo Reason for Visit Reason Comments Appointment 3wk pp Encounter Details Date Type Department Care Team Description 08/10/2019 Telephone [facility]- Shelby Taylor Mathew ointment (3wk pp ) Maurice Lopez BETTY [address] [facility] [place] [address] [facility] [address] [place] [address] [phone] Allergies Active Allergy Reactions Severity Noted Date [...] Liveborn infant, of morel , [facility] 07/23/2019 delivery Normal labor 07/21/2019 Cervical Papanicolaou smear negative within last 12 mo [facility] 06/19/2019 Overview: 12/2018 NIL pap , [...] BOX Medic aid HEALTHCARE [place] [id number] MANA[place]ED MED[place]ID [place] documented as of this encounter
--- OUTSIDE RECORDS SUMMARY | 2019-10-18 16:09 | XMS REPORT | Summary of Care ---
:1995 Author Organization [facility] Address [address] [place] [address] Care Team Providers Name Role Phone Jessica Taylor Primary Care Provider Jessica Baker Insurance Hmo Reason for Visit Reason Comments Appointment Encounter Details Date Type Department Care Team Description 08/13/2019 Telephone [facility] Women's QuiñonezShelia MD Appointment Healthcare- [address], [address] [place] [address] [place] [address] [phone] Allergies Active Allergy Reactions Severity Noted Date Comments Metoclopramide Hcl Anxiety 07/12/2019 Patient s ays she gets figity, angry and mean documented as of this encounter (statuses as of 08/14/2019) Medications Medication Sig Dispensed Refills Start Date End Date Status ALBUTEROL 90 INHALE 2 PUFFS 7 Each 3 05/26/2019 A ctive mcg/actuation BY MOUTH EVERY inhalerIndications: 6 HOURS Asthma affecting NEEDED FOR in second WHEEZING FOR trimester SHORTNESS OF BREATH buPROPion SR Take 1 tablet 60 tablet 3 05/21/2019 Ac tive (WELLBUTRIN SR) 150 mg by mouth 2 [...] 37 weeks gestation of , Normal labor buPROPion XL Take 1 tablet 30 tablet 0 08/13/2019 Ac tive (WELLBUTRIN XL) 150 mg by mouth daily. 24 hr tabletIndications: Other depression cyclobenzaprine 5 mg Take 1 tablet 21 tablet 0 08/13/2019 040 01/2020 Active tabletIndications: by mouth 3 Other chronic back pain (three) times daily for 7 days. documented as of this encounter (statuses as of 08/14/2019) Active Problems Problem Noted Date Routine follow-up 08/13/2019 Back pain 08/13/2019 Other depression 08/13/2019 Cervical Papanicolaou smear negative within last 12 mo [facility] 06/19/2019 Overview: 12/2018 NIL pap , see scanned records History of tubal ligation 05/08/2019 Anxiety during in second trimester, antepart um 04/16/2019 Asthma affecting in third trimester 04/16/20 19 documented as of this encounter (statuses as of 08/14/2019) Resolved Problems Problem Noted Date Resolved Date Liveborn , of morel , born in hospital by 07/23/2019 08/13/2019 delivery Normal labor 07/21/2019 08/13/2019 IUGR (intrauterine growth restriction) affecting care of [...] contractions in second trimester, antepartum 05/14/2019 05/28/2019 37 weeks gestation of 05/14/2019 08/13/19 20 BV (bacterial vaginosis) 05/14/2019 07/21/2019 Anemia of mother in , antepartum 05/11/2019 07/21/2019 Gastroesophageal reflux in 05/08/201906/2019 Candidiasis of vulva and vagina 03/30/2019 05/28/19 Supervision of high risk in third trimester 201808/13/2019 Multiparity 02/06/2019 08/13/2019 History of delivery 02/06/2019 08/13/2019 Overview: History of frederick inj History of section 02/06/2019 08/13/2019 History of 02/06/2019 08/13/2019 documented as of this encounter (statuses as of 08/14/2019) Immunizations Name Administration Dates Next Due Influenza [...] Treatment Date Type Specialty Care Team Description 09/02/2019 Telemedicine Visit [facility] Venu Taylor, CNP [address] [place], [place] [address] [phone] Health Maintenance Due Date Last Done Comments [...] / Subscriber ID Effective Phone Address T formerly [facility] Group Dates SAMMY CHRISTIANSON xxxxxxxxx 2019- P [address] BOX Medic aid [place] [id number] MANAGED MEDICAID [place], [place] documented as of this encounter
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
--- OUTSIDE RECORDS SUMMARY | 2019-10-18 16:10 | XMS REPORT | Summary of Care ---
:1995 Author Organization [facility] Address [address] [place] [address] Care Team Providers Name Role Phone BakerJessica Insurance Hmo Jm Quiñonez MD Primary Care Provider Reason for Visit Reason Comments Assessment incision pain- c/s 0 Encounter Details Date Type Department Care Team Description 08/26/2019 Telephone [facility] Women's Shelia Quiñonez MD Assessment ([facility] Healthcare- [address] pain- c/s 07/21/2019) [address] [place], [place] [address] [address] [place], [place] [phone] Allergies Active Allergy Reactions Severity Noted Date Comments Metoclopramide Hcl Anxiety 07/12/2019 Patient s ays she gets figity, angry and mean documented as of this encounter (statuses as of 08/26/2019) Medications Medication Sig Dispensed Refills Start Date [...] Active tabletIndications: mouth daily. Liveborn , of mroel , born in hospital by delivery, Supervision [...] 07/23/2019 Active tabletIndications: mouth every 6 Liveborn , of (six) [...] Normal labor buPROPion XL Take 1 tablet by 30 tablet 0 08/13/2019 Active (WELLBUTRIN XL) 150 mg mouth daily. 24 hr tabletIndications: Other depression documented as of this encounter (statuses as of 08/26/2019) Active Problems Problem Noted Date Routine follow-up 08/13/2019 Back pain 08/13/2019 Other depression 08/13/2019 Cervical Papanicolaou smear negative within last 12 mo [facility] 06/19/2019 Overview: 12/2018 NIL pap , see scanned records History of tubal ligation 05/08/2019 Anxiety during in second trimester, antepart um 04/16/2019 Asthma affecting in third trimester 04/16/20 19 documented as of this encounter (statuses as of 08/26/2019) Resolved Problems Problem Noted Date Resolved Date [...] as of this encounter (statuses as of 08/26/2019) Immunizations Name Administration Dates Next Due Influenza [...] 09/02/2019 [facility]medicine [facility]enu [facility], [facility] [address] [place], [place] [address] [phone] Health Maintenance Due Date Last Done Comments [...] e Group Dates SAMMY CHRISTIANSON xxxxxxxxx 2019-Pres [address] Medic aid HEALTHCARE - [place]ALTHCARE [place] [id number] MANAGED MEDICAID [place], [place] documented as of this encounter
--- OUTSIDE RECORDS SUMMARY | 2019-10-18 16:11 | XMS REPORT | Summary of Care ---
:1995 Author Organization [facility] Address [address] [place] [address] Care Team Providers Name Role Phone Jessica Baker Insurance Hmo Jm Quiñonez MD Primary Care Provider Reason for Visit Reason Comments Appointment telehealth Encounter Details Date Type Department Care Team Description 09/02/2019 Telephone [facility]- [place], Shelby Mathew ointment [facility] CNP (telehealth) [address] [facility] [address] [facility] [address] [place] [address] [phone] Allergies Active Allergy Reactions Severity Noted Date Comments Metoclopramide Hcl Anxiety 07/12/2019 Patient s ays she gets figity, angry and mean documented as of this encounter (statuses as of 09/02/2019) Medications Medication Sig Dispensed Refills Start Date [...] mouth 2 (two) tabletIndications: times daily. Liveborn , of morel , born [...] as of this encounter (statuses as of 09/02/2019) Active Problems Problem Noted Date Routine follow-up 08/13/2019 Back pain 08/13/2019 Other depression 08/13/2019 Cervical Papanicolaou smear negative within last 12 mo [facility] 06/19/2019 Overview: 12/2018 NIL pap , see scanned records History of tubal ligation 05/08/2019 Anxiety during in second trimester, antepart um 04/16/2019 Asthma affecting in third trimester 04/16/20 19 documented as of this encounter (statuses as of 09/02/2019) Resolved Problems Problem Noted Date Resolved Date [...] as of this encounter (statuses as of 09/02/2019) Immunizations Name Administration Dates Next Due Influenza [...] 09/02/2019 Telemedicine Visit [facility] Venu Taylor [facility] Arrived [address] [place] [address] [phone] Health Maintenance Due Date Last Done Comments [...] / Subscriber ID Effective Phone Address T [facility] Group Dates SAMMY CHRISTIANSON xxxxxxxxx 2019-Pres P O BOX Medic aid HEALTHCARE [place]CARE [place] [id number] MANAGED MEDICAID [place], [place] documented as of this encounter
--- OUTSIDE RECORDS SUMMARY | 2019-10-18 16:11 | XMS REPORT | Summary of Care ---
:1995 Author Organization [facility] Address [address] [place] [address] Care Team Providers Name Role Phone Jessica Baker Insurance Hmo Jm Quiñonez MD Primary Care Provider Reason for Visit Reason Comments Assessment Encounter Details Date Type Department Care Team Description 08/31/2019 Telephone [facility] Women's Shelia Quiñonez MD Assessment Healthcare- [address], [address] [place] [address] [place] [address] [phone] Allergies Active Allergy Reactions Severity Noted Date Comments Metoclopramide Hcl Anxiety 07/12/2019 Patient s ays she gets figity, angry and mean documented as of this encounter (statuses as of 08/31/2019) Medications Medication Sig Dispensed Refills Start Date [...] as of this encounter (statuses as of 08/31/2019) Active Problems Problem Noted Date Routine follow-up 08/13/2019 Back pain 08/13/2019 Other depression 08/13/2019 Cervical Papanicolaou smear negative within last 12 mo [facility] 06/19/2019 Overview: 12/2018 NIL pap , see scanned records History of tubal ligation 05/08/2019 Anxiety during in second trimester, antepart um 04/16/2019 Asthma affecting in third trimester 04/16/20 19 documented as of this encounter (statuses as of 08/31/2019) Resolved Problems Problem Noted Date Resolved Date Liveborn , of morel , born in hospital by 07/23/2019 08/13/2019 delivery Normal labor 07/21/2019 08/13/2019 IUGR (intrauterine growth restriction) affecting care of 03/202007/21/2019 mother, third trimester, fetus 1 Body aches 06/23/2019 07/21/2019 Upper respiratory tract infection, unspecified type 06/23/1907/21/2019 Pain of round ligament during 06/04/2019 07/21/2019 Previous delivery affecting , antepartum 0 05/31/2019 07/21/2019 uterine contractions 05/30/2019 07/21/2019 39 weeks gestation of 05/29/2019 05/30/19 20 Threatened labor, third trimester 05/28/2019 07/21/2019 uterine contractions in second trimester, antepartum 05/14/2019 05/28/2019 37 weeks gestation of 05/14/2019 08/13/19 BV (bacterial vaginosis) 05/14/2019 07/21/2019 Anemia of mother in , antepartum 05/11/2019 07/21/2019 Gastroesophageal reflux in 05/08/201906/2019 Candidiasis of vulva and vagina 03/30/2019 05/28/19 20 Supervision of high risk in third trimester 201808/13/2019 Multiparity 02/06/2019 08/13/2019 History of delivery 02/06/2019 08/13/2019 Overview: History of frederick inj History of section 02/06/2019 08/13/2019 History of 02/06/2019 08/13/2019 documented as of this encounter (statuses as of 08/31/2019) Immunizations Name Administration Dates Next Due Influenza [...] 09/02/2019 Telemedicine Visit [facility] Venu Taylor, [facility] [address] [place], [place] [address] [phone] Health Maintenance Due Date Last Done Comments [...] BOX Medic aid HEALTHCARE [place]CARE [place] [id number] MANAGED MED[place]ID [place] documented as of this encounter
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
--- OUTSIDE RECORDS SUMMARY | 2019-10-18 16:13 | XMS REPORT | Summary of Care ---
:1995 Author Organization [facility] Address [address] [place] [address] Care Team Providers Name Role Phone Jessica Taylor BETTY Primary Care Provider Jessica Baker Insurance Hmo Jm Quiñonez MD Primary Care Provider Encounter Details Date Type Department Care Team Description 08/13/2019 [facility] Maurice [place] [address] [address] [address] [place] [address] Allergies Active Allergy Reactions Severity Noted Date Comments Metoclopramide Hcl Anxiety 07/12/2019 Patient s ays she gets figity, angry and mean documented as of this encounter (statuses as of 09/19/2019) Medications Medication Sig Dispensed Refills Start Date [...] as of this encounter (statuses as of 09/19/2019) Active Problems Problem Noted Date Other general counseling and advice for contraceptive management 09/02/2019 Routine follow-up 08/13/2019 Back pain 08/13/2019 Other depression 08/13/2019 Cervical Papanicolaou smear negative within last 12 mo [facility] 06/19/2019 Overview: 12/2018 NIL pap , see scanned records History of tubal ligation 05/08/2019 Anxiety during in second trimester, antepart um 04/16/2019 Asthma affecting in third trimester 04/16/20 19 documented as of this encounter (statuses as of 09/19/2019) Resolved Problems Problem Noted Date Resolved Date [...] as of this encounter (statuses as of 09/19/2019) Immunizations Name Administration Dates Next Due Influenza [...] Treatment Date Type Specialty Care Team Description 12/03/2019 Office Visit OB Juanitos [facility] Elena Taylor, [facility] [address] [place], [place] [address] [phone] Health Maintenance Due Date Last Done Comments [...] / Subscriber ID Effective Phone Address T [facility] Group Dates SAMMY CHRISTIANSON xxxxxxxxx 2019-Pres P O BOX Medic aid HEALTHCARE [place]ARE [place] [id number] MANAGED MED[place]ID [place] documented as of this encounter
--- OUTSIDE RECORDS SUMMARY | 2019-10-18 16:13 | XMS REPORT | Summary of Care ---
:1995 Author Organization [facility] Address [address] [place] [address] Care Team Providers Name Role Phone BakerJessica Insurance Hmo Jm Quiñonez MD Primary Care Provider Encounter Details Date Type Department Care Team Description 08/18/2019 Patient Secure Msg [facility] [place] Women's Shelia Quiñonez MD [facility]- [address] 208 [facility] 208 [place] [address] [place] [address] [phone] Allergies Active Allergy Reactions Severity Noted Date [...] Office Visit OB Juanitos Maria Elena Taylor, [facility] [address] [place], [place] [address] [phone] Health Maintenance Due Date Last Done Comments [...] / Subscriber ID Effective Phone Address T [facility] Group Dates SAMMY CHRISTIANSON xxxxxxxxx 2019-Pres P O BOX Medic aid HEALTHCARE [place]CARE [place] [id number] MANAGED MED[place]ID [place] documented as of this encounter
--- OUTSIDE RECORDS SUMMARY | 2019-10-18 16:14 | XMS REPORT | Summary of Care ---
:1995 Author Organization [facility] Address [address] [place] [address] Care Team Providers Name Role Phone Jessica Taylor BETTY Primary Care Provider Jessica Baker Insurance Hmo Jm Quiñonez MD Primary Care Provider Encounter Details Date Type Department Care Team Description 08/13/2019 Patient Secure Msg [facility] Women's Shelia Quiñonez MD [facility]- [address] 208 [facility] 208 [place] [address] [address] [place] [address] [phone] Allergies Active Allergy Reactions Severity Noted Date [...] Care Team Description 12/03/2019 Office Visit OB Satellites Maria Elena Taylor, [facility] [address] [place], [place] [address] [phone] Health Maintenance Due Date Last Done Comments [...] BOX Medic aid HE[place]CARE [place]ARE [place] [id number] MANA[place]ED MED[place]ID [place] documented as of this encounter
--- OUTSIDE RECORDS SUMMARY | 2019-10-18 16:15 | XMS REPORT | Summary of Care ---
:1995 Author Organization [facility] Address [address] [place] [address] Care Team Providers Name Role Phone BakerJessica Insurance Hmo Jm Quiñonez MD Primary Care Provider Encounter Details Date Type Department Care Team Description 09/15/2019 Patient Secure Msg [facility] Women's Shelia Quiñonez MD [facility]- [address] [facility] [address], [address] [address] [address] [place] [address] [phone] Allergies Active Allergy Reactions Severity Noted Date Comments Metoclopramide Hcl Anxiety 07/12/2019 Patient s ays she gets figity, angry and mean documented as of this encounter (statuses as of 10/17/2019) Medications Medication Sig Dispensed Refills Start Date [...] as of this encounter (statuses as of 10/17/2019) Active Problems Problem Noted Date Other general [...] as of this encounter (statuses as of 10/17/2019) Resolved Problems Problem Noted Date Resolved Date [...] as of this encounter (statuses as of 10/17/2019) Immunizations Name Administration Dates Next Due Influenza [...] Office Visit OB Satellites [facility] [address] [place], [place] [address] [phone] Health Maintenance Due Date Last Done Comments PAP SMEAR 02/19/2016 HPV VACCINES (1 - Female 03/02/2020 Postpon ed from 2-dose series) 2006 (Preg nant or ) CHLAMYDIA SCREENING 07/12/2020 07/13/2019, 06/17/2019, 05/30/2019, Additional history exists Depression Screening 09/01/2020 09/02/2019, 09/02/2019 DTaP,Tdap,and Td Vaccines 05/21/2029 05/21/2019 (2 - Td) INFLUENZA VACCINE Completed 02/06/2019 PNEUMOCOCCAL 0-64 YEARS Discontinued COMBINED SERIES documented as of this encounter Results Not on filedocumented in this encounter Insurance Payer Benefit Plan / Subscriber ID Effective Phone Address T ype Group Dates SAMMY CHRISTIANSON xxxxxxxxx 2019-Pres Alisson RYAN Medic aid [place] [id number] MANAGED MED[place]ID [place] documented as of this encounter
--- NOTE | 2019-10-18 16:35 | ER ---
Nurse's Notes [facility] Name: Natanael Dyson Age: 24 yrs Sex: Female : 1995 Arrival Date: 10/18/2019 Time: 16:00 Bed 5 Private MD: Diagnosis: Otitis externa;Urinary tract infection, site not specified Presentation: 10/17 16:13 Chief complaint: Patient states: Left ear pain for 4 days that started after [place] the beach. No fever. Reports N/V for 2 days. Coronavirus screen: Proceed with normal triage. Patient reports a cough. Patient denies shortness of breath or difficulty breathing. Patient denies measured and/or subjective temperature greater than 100.4F prior to today's visit. Patient denies travel on a cruise ship or to a country the [facility] currently lists as an affected area. Patient denies contact with known and/or suspected case of COVID-19. Ebola Screen: Patient denies travel to an Ebola-affected area in the 21 days before illness onset. Initial Sepsis Screen: Does the patient meet any 2 criteria? HR > 90 bpm. No. Patient's initial sepsis screen is negative. Does the patient have a suspected source of infection? Yes: Other: ear pain. Risk Assessment: Do you want to hurt yourself or someone else? Patient reports no desire to harm self or others. Onset of symptoms was October 14, 2019. 16:13 Method Of Arrival: Ambulatory [facility] 16:13 Acuity: THIERNO 4 ll1 Historical: - Allergies: 16:16 No Known Allergies; ll1 - PSHx: 16:16 ; ll1 - Immunization history:: Adult Immunizations unknown. - Social history:: Patient/guardian denies using alcohol, street drugs, tobacco products, Smoking status: Patient denies any tobacco usage or history of. - Family history:: not pertinent. - Hospitalizations: : No recent hospitalization is reported. Screenin:10 Abuse screen: Denies threats or abuse. Denies injuries from another. Nutritional ph screening: No deficits noted. Tuberculosis screening: No symptoms or risk factors identified. Fall Risk None identified. Assessment: 16:19 General: Appears in no apparent distress. uncomfortable, slender, well groomed, ph Behavior is cooperative, appropriate for age, crying, Denies fever. Pain: Complains of pain in left ear. Neuro: Level of Consciousness is awake, alert, obeys commands, Oriented to person, place, time, situation, Reports headache in left parietal area, frontal area. Cardiovascular: Capillary refill < 3 seconds in bilateral fingers Patient's skin is warm and dry. Respiratory: Reports cough that is non-productive, Airway is patent Respiratory effort is even, unlabored, Respiratory pattern is regular, symmetrical, Denies shortness of breath. GI: Reports nausea, vomiting, Patient currently denies abdominal pain, diarrhea. : No signs and/or symptoms were reported regarding the genitourinary system. EENT: Reports pain in left ear. Derm: Skin is intact, is healthy with good turgor, Skin is pink, warm \T\ dry. Musculoskeletal: Circulation, motion, and sensation intact. Range of motion: intact in all extremities. 16:44 Reassessment: Patient appears in no apparent distress at this time. Patient and/or ph family updated on plan of care and expected duration. Pain level reassessed. Patient is alert, oriented x 3, equal unlabored respirations, skin warm/dry/pink. Urine collected from pt for UPT, noted to be blood tinged, pt reports that she is not currently on her menstrual cycle, reports burning w/ urination, ERP notified and urine sent to lab for micro and culture, D/C pending 15 minute shot time. Vital Signs: 16:13 BP 145 / 97; Pulse 105; Resp 18; Temp 98.0; Pulse Ox 100% ; Pain 10/10; ll1 17:12 BP 134 / 78; Pulse 91; Resp 18; Temp 98.0; Pulse Ox 99% on R/A; ph ED Course: 16:00 Patient arrived in ED. as 16:09 Harjit Samson MD is Attending Physician. rn 16:10 Viktoriya Jaramillo, ROSEY is Primary Nurse. ph 16:10 Patient has correct armband on for positive identification. Bed in low position. Call ph light in reach. Side rails up X 1. Pulse ox on. NIBP on. Door closed. Noise minimized. Warm blanket given. 16:15 Triage completed. ll1 16:22 Arm band placed on Patient placed in an exam room. ph 16:44 No provider procedures requiring assistance completed. Urine collected: clean catch ph specimen, cloudy, blood tinged. Patient did not have IV access during this emergency room visit. Administered Medications: 16:44 Drug: Zofran (Ondansetron) 4 mg Route: PO; ph 17:12 Follow up: Response: No adverse reaction ph 16:44 Drug: TORadol 30 mg Route: IM; Site: left deltoid; ph 17:11 Follow up: Response: No adverse reaction ph Outcome: 16:34 Discharge ordered by MD. rn 17:12 Discharged to home ambulatory. ph 17:12 Condition: good 17:12 Discharge instructions given to patient, Instructed on discharge instructions, follow up and referral plans. medication usage, Demonstrated understanding of instructions, follow-up care, medications, Prescriptions given X 2. 17:13 Patient left the ED. ph Signatures: Anum Win Roman, MD MD rn Viktoriya Jaramillo RN RN ph Brandi Cotter RN RN ll1 Corrections: (The following items were deleted from the chart) 16:46 16:44 Reassessment: Patient appears in no apparent distress at this time. Patient ph and/or family updated on plan of care and expected duration. Pain level reassessed. Patient is alert, oriented x 3, equal unlabored respirations, skin warm/dry/pink. D/C pending 15 minute shot time ph
--- NOTE | 2019-10-18 16:35 | EDPHYS ---
Physician Documentation [facility] Name: Natanael Dyson Age: 24 yrs Sex: Female : 1995 Arrival Date: 10/18/2019 Time: 16:00 Bed 5 Private MD: ED Physician Harjit Samson HPI: 10/17 16:16 This 24 yrs old Female presents to ER via Ambulatory with complaints of Ear rn Pain, Nausea/Vomiting. 16:16 The patient presents with pain, moderate. Onset: The symptoms/episode began/occurred 4 rn day(s) ago. Modifying factors: The symptoms are alleviated by nothing, the symptoms are aggravated by pulling on ears, touching. Severity of symptoms: At their worst the symptoms were moderate in the emergency department the symptoms are unchanged. The patient has not experienced similar symptoms in the past. Reports left ear, after going to beach, no fever, no trauma, also having mild congestion, daughter recently sick with URI. No sob. No abd pain. No diarrhea. Reports thinks vomiting from pain. Came for ear pain.. Historical: - Allergies: 16:16 No Known Allergies; ll1 - PSHx: 16:16 ; ll1 - Immunization history:: Adult Immunizations unknown. - Social history:: Patient/guardian denies using alcohol, street drugs, tobacco products, Smoking status: Patient denies any tobacco usage or history of. - Family history:: not pertinent. - Hospitalizations: : No recent hospitalization is reported. ROS: 16:16 Constitutional: Negative for fever, chills, and weight loss, Eyes: Negative for injury, rn pain, redness, and discharge, ENT: + left ear pain, + congestion Neck: Negative for injury, pain, and swelling, Cardiovascular: Negative for chest pain, palpitations, and edema, Respiratory: Negative for shortness of breath, wheezing, and pleuritic chest pain, Abdomen/GI: Negative for abdominal pain, diarrhea, and constipation, Neuro: Negative for headache, weakness, numbness, tingling, and seizure. Exam: 16:16 Constitutional: This is a well developed, well nourished patient who is awake, alert, rn walking to room on own, holding left ear Head/Face: Normocephalic, atraumatic. Eyes: Pupils equal round and reactive to light, extra-ocular motions intact. Lids and lashes normal. Conjunctiva and sclera are non-icteric and not injected. Cornea within normal limits. Periorbital areas with no swelling, redness, or edema. ENT: Nares patent. No nasal discharge, no septal abnormalities noted. Left external auditory canal with mild erythema, no drainage, TM normal. Oropharynx with no redness, swelling, or masses, exudates, or evidence of obstruction, uvula midline. Mucous membranes moist. Neck: Trachea midline, no thyromegaly or masses palpated, and no cervical lymphadenopathy. Supple, full range of motion without nuchal rigidity, or vertebral point tenderness. No Meningismus. Skin: Warm, dry MS/ Extremity: Pulses equal, no cyanosis. Neuro: Awake and alert, GCS 15, oriented to person, place, time, and situation. Cranial nerves II-XII grossly intact. Motor strength 5/5 in all extremities. Sensory grossly intact. Cerebellar exam normal. Normal gait. Vital Signs: 16:13 BP 145 / 97; Pulse 105; Resp 18; Temp 98.0; Pulse Ox 100% ; Pain 10/10; ll1 17:12 BP 134 / 78; Pulse 91; Resp 18; Temp 98.0; Pulse Ox 99% on R/A; ph MDM: 16:09 Patient medically screened. rn 16:16 Differential diagnosis: otitis externa, acute otalgia, URI. Data reviewed: vital signs, rn nurses notes, and as a result, I will discharge patient. Counseling: I had a detailed discussion with the patient and/or guardian regarding: the historical points, exam findings, and any diagnostic results supporting the discharge/admit diagnosis, the need for outpatient follow up, to return to the emergency department if symptoms worsen or persist or if there are any questions or concerns that arise at home. Special discussion: I discussed with the patient/guardian in detail that at this point there is no indication for admission to the hospital. It is understood, however, that if the symptoms persist or worsen the patient needs to return immediately for re-evaluation. 16:32 ED course: Pt also reports dysuria and blood in urine, not on menstrual cycle, will rn treat with abx for UTI, and abx drops for ear. . 10/17 16:32 Order name: Urine Microscopic Only rn 10/17 16:32 Order name: Urine Culture rn 10/17 16:33 Order name: Urine Microscopic Only [facility] 10/17 16:39 Order name: Urine Dipstick--Ancillary (enter results) 10/17 16:39 Order name: Urine --Ancillary (enter results) 10/17 16:16 Order name: Urine Test (obtain specimen); Complete Time: 16:36 rn 10/17 16:32 Order name: Urine Dipstick-Ancillary (obtain specimen); Complete Time: 16:36 rn Administered Medications: 16:44 Drug: Zofran (Ondansetron) 4 mg Route: PO; ph 17:12 Follow up: Response: No adverse reaction ph 16:44 Drug: TORadol 30 mg Route: IM; Site: left deltoid; ph 17:11 Follow up: Response: No adverse reaction ph Disposition: 10/18/19 16:34 Discharged to Home. Impression: Otitis externa, Urinary tract infection, site not specified. - Condition is Stable. - Discharge Instructions: Otitis Externa, Urinary Tract Infection, Adult. - Prescriptions for Cortisporin- TC 3.3-3-10-0.5 mg/mL Otic Suspension - instill 4 drop by OTIC route every 6 hours; 1 bottle. Cipro 500 mg Oral Tablet - take 1 tablet by ORAL route every 12 hours for 7 days; 14 tablet. Zofran ODT 4 mg Oral tablet,disintegrating - place 1 tablet by TRANSLINGUAL route every 8 hours As needed; 15 tablet. - Medication Reconciliation Form, Thank You Letter, Antibiotic Education, Prescription Opioid Use form. - Follow up: Private Physician; When: As needed; Reason: Recheck today's complaints, Re-evaluation by your physician. - Problem is new. - Symptoms have improved. Signatures: Dispatcher [employer] [facility] Harjit Samson MD MD rn Hall, Patricia, RN RN ph Brandi Cotter RN RN ll1 Corrections: (The following items were deleted from the chart) 17:13 16:34 10/18/2019 16:34 Discharged to Home. Impression: Otitis externa; Urinary tract ph infection, site not specified. Condition is Stable. Forms are Medication Reconciliation Form, Thank You Letter, Antibiotic Education, Prescription Opioid Use. Follow up: Private Physician; When: As needed; Reason: Recheck today's complaints, Re-evaluation by your physician. Problem is new. Symptoms have improved. rn
[2019-10-18] MEDS ORDERED: ONDANSETRON 4 MG (ODT) TAB ONE (16:48)
[2019-10-18] MEDS ORDERED: KETOROLAC 30 MG/ML INJ ONE (16:48)
[2019-10-18 17:12] LABS: Urine Bacteria <20 /HPF (<20); Urine Culture Reflex Order NOT NEEDED; Urine RBC TNTC /HPF (NONE SEEN)
[2019-10-18 17:18] VITALS: TEMP 98
[2019-10-18 17:20] VITALS: BP 134/78; O2SAT 99
[2019-10-18 18:01] LABS: Urine Blood 3+ (NEG); Urine Glucose NEGATIVE (NEG); Urine Protein 1+ (NEG); Urine Specific Gravity 1.025 (1.005-1.030)
== END 2019-10-18 17:13 | disposition home or self-care (01) ==
LOC: ER 15:58
DX: H60.92 Unspecified otitis externa, left ear (principal); N39.0 Urinary tract infection, site not specified
CPT/HCPCS: 81003; 81015; 81025; 87086; 87088; 96372; 99284

== ENCOUNTER 2019-10-20 13:07 | Emergency (ER) | payer MEDICAID ==
[2019-10-20] MEDS ORDERED: NA CHLORIDE 0.9% 1,000 ML ONE (15:04)
[2019-10-20 15:07] LABS: Absolute Lymphocytes (CBC) 2.1 K/uL (0.7-4.9); Basophils % 0.6 % (0-1.3); Hematocrit 42.9 % (36.0-45.0); Lymphocytes % 30.1 % (15.3-44.8); MPV 8.4 fL (7.6-11.3); RBC Red Blood Cell Count 5.11 M/uL (3.86-4.86)
--- NOTE | 2019-10-20 15:17 | RAD REPORT ---
EXAM DESCRIPTION: CT - Stone Protocol - 10/20/2019 3:05 pm CLINICAL HISTORY: ABD PAIN COMPARISON: Pelvis Complete dated 07/29/2019 TECHNIQUE: Axial 5 mm thick images were obtained without oral or IV contrast. The [id number] span s the entirety of the system including uppermost abdomen and lung bases. All CT scans are performed using dose optimization technique as appropriate and may include automated exposure control or mA/KV adjustment according to patient size. FINDINGS: No hydronephrosis is present and no obstructing ureteral calculi. No suspicious renal mass es. Isodense masses and pyelonephritis are not excluded on a stone protocol CT scan. Bilateral nonobs tructing calyx calculi are present. No bladder calculi. No adrenal abnormality seen. No uterine or left ovarian abnormality seen. Right ovary is prominent likely containing a 2.5 centim eter cyst. No cyst rupture or hemorrhage findings seen. Imaged portions of the liver, spleen and pancreas show no suspicious findings on non-contrast imaging . No gallbladder or biliary tree abnormality identified. No suspicious bowel findings. Appendix is identified and normal. No hernia, mass or bulky lymphadenopathy noted. No free air or pneumatosis. Trace amount of free flui d in the cul de sac is well within physiologic limits. Postsurgical changes are noted from prior C-se ction. No significant bony abnormality. IMPRESSION: No hydronephrosis, obstructing calculus or acute finding. Patient has bilateral nonobstructing calyx calculi up to 5 mm in size. Isodense masses and pyelonephritis are not excluded on stone protocol technique. No acute GI abnormality. Prominent right ovary likely containing approximately 2.5 centimeter cyst. No cyst rupture or hemorrh age findings evident on CT.
[2019-10-20 15:31] LABS: Albumin 4.3 g/dL (3.4-5.0); Bilirubin Direct 0.1 mg/dL (0-0.2); Bilirubin Total 0.6 mg/dL (0.2-1.0); Potassium 3.7 mmol/L (3.5-5.1); Protein, Total 8.4 g/dL (6.4-8.2)
--- NOTE | 2019-10-20 15:31 | ER ---
Nurse's Notes [facility] Name: Natanael Dyson Age: 24 yrs Sex: Female : 1995 Arrival Date: 10/20/2019 Time: 13:08 Bed 24 Private MD: Diagnosis: Unspecified ovarian cysts Presentation: 10/19 13:33 Chief complaint: Patient states: i came in like 2 days ago with really bad nausea and tw2 vomiting and my ear was hurting and the past 2 or 3 days my lower right side of my stomach is hurting and i feel a lot of pressure. Coronavirus screen: Patient denies a cough. Patient denies shortness of breath or difficulty breathing. Patient denies measured and/or subjective temperature greater than 100.4F prior to today's visit. Patient denies travel on a cruise ship or to a country the [facility] currently lists as an affected area. Patient denies contact with known and/or suspected case of COVID-19. Ebola Screen: Patient denies travel to an Ebola-affected area in the 21 days before illness onset. Initial Sepsis Screen: Does the patient meet any 2 criteria? No. Patient's initial sepsis screen is negative. Does the patient have a suspected source of infection? No. Patient's initial sepsis screen is negative. Risk Assessment: Do you want to hurt yourself or someone else? Patient reports no desire to harm self or others. Onset of symptoms was October 20, 2019. 13:33 Method Of Arrival: Ambulatory tw2 13:33 Acuity: THIERNO 3 tw2 Triage Assessment: 13:35 General: Appears uncomfortable, slender, Behavior is crying. Pain: Complains of pain in tw2 right lower quadrant. 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 - Social history:: Smoking status: . Screenin:41 Abuse screen: Denies threats or abuse. Nutritional screening: No deficits noted. tw2 Tuberculosis screening: No symptoms or risk factors identified. Fall Risk None identified. Assessment: 14:30 General: Appears in no apparent distress. Behavior is calm, cooperative. Pain: iw Complains of pain in right lower quadrant and left lower quadrant. Neuro: Level of Consciousness is awake, alert, obeys commands, Oriented to person, place, time, situation, Moves all extremities. Full function. Cardiovascular: Patient's skin is warm and dry. Respiratory: Respiratory effort is even, unlabored, Respiratory pattern is regular, symmetrical. GI: Reports lower abdominal pain, nausea, vomiting. : Denies burning with urination. Derm: Skin is intact, is healthy with good turgor. Musculoskeletal: Range of motion: intact in all extremities. 16:07 Reassessment: Patient appears in no apparent distress at this time. Patient and/or iw family updated on plan of care and expected duration. Pain level reassessed. Patient is alert, oriented x 3, equal unlabored respirations, skin warm/dry/pink. Patient states feeling better. Patient states symptoms have improved. Vital Signs: 13:33 BP 127 / 97; Pulse 88; Resp 17; Temp 98.5(TE); Pulse Ox 99% on R/A; Weight 49.9 kg (R); tw2 Height 5 ft. 1 in. (154.94 cm); Pain 9/10; 13:33 Body Mass Index 20.78 (49.90 kg, 154.94 cm) tw2 ED Course: 13:08 Patient arrived in ED. fj1 13:35 Triage completed. tw2 13:35 Arm band placed on. tw2 14:00 Inserted saline lock: 20 gauge in right antecubital area, using aseptic technique. iw Blood collected. 14:01 Christy Zamora FNP-C is [facility]. snw 14:01 Miquel Rios MD is Attending Physician. snw 14:11 Bed in low position. Call light in reach. tw2 14:19 Vania Loo, ROSEY is Primary Nurse. iw 15:05 CT Stone Protocol In Process Unspecified. EDMS 15:50 IV discontinued, intact, bleeding controlled, No redness/swelling at site. Pressure iw dressing applied. 16:08 No provider procedures requiring assistance completed. iw Administered Medications: 15:55 Drug: Phenergan 12.5 mg Route: IM; Site: right deltoid; iw 15:55 Drug: TORadol 30 mg Route: IM; Site: right deltoid; iw 16:07 Not Given (Other Intervention Used): Phenergan 12.5 mg IVP once iw 16:08 Not Given (Other Intervention Used): TORadol 30 mg IVP once iw Outcome: 15:30 Discharge ordered by MD. reich 16:08 Discharged to home ambulatory. iw 16:08 Condition: good 16:08 Discharge instructions given to patient, Instructed on discharge instructions, follow up and referral plans. medication usage, Demonstrated understanding of instructions, follow-up care, medications, Prescriptions given X 2. 16:09 Patient left the ED. iw Signatures: Dispatcher [employer] EDMS Christy Zamora, CARDIOVASCULAR PHYSICIAN ASSISTANT-C CARDIOVASCULAR PHYSICIAN ASSISTANT-Csnw Vania Loo, RN RN iw Amber Mitchell RN RN tw2 Brian Coreas fj1
--- NOTE | 2019-10-20 15:31 | EDPHYS ---
Physician Documentation [facility] Name: Natanael Dyson Age: 24 yrs Sex: Female : 1995 Arrival Date: 10/20/2019 Time: 13:08 Bed 24 Private MD: ED Physician Miquel Rios HPI: 10/19 15:28 This 24 yrs old Female presents to ER via Ambulatory with complaints of Pain. snw 15:28 Onset: The symptoms/episode began/occurred acutely. Associated signs and symptoms: snw Pertinent positives: abdominal pain, nausea. Modifying factors: The patient symptoms are alleviated by nothing, the patient symptoms are aggravated by movement. The patient has experienced a previous episode, during . The patient has been recently seen at the [facility] Department, last week, for unrelated complaints, OM - given abx. 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 - Social history:: Smoking status: . ROS: 15:26 Constitutional: Negative for fever, chills, and weight loss, Eyes: Negative for injury, snw pain, redness, and discharge, ENT: currently being treated for otitis Neck: Negative for injury, pain, and swelling, Cardiovascular: Negative for chest pain, palpitations, and edema, Respiratory: Negative for shortness of breath, cough, wheezing, and pleuritic chest pain, Abdomen/GI: Positive for abdominal pain, nausea, vomiting, negative for diarrhea and constipation, right lower quad abd pain Back: Negative for injury and pain, : Negative for injury, bleeding, discharge, and swelling, MS/Extremity: Negative for injury and deformity, Skin: Negative for injury, rash, and discoloration, Neuro: Negative for headache, weakness, numbness, tingling, and seizure. Exam: 15:25 Constitutional: This is a well developed, well nourished patient who is awake, alert, snw and in no acute distress. Head/Face: Normocephalic, atraumatic. Eyes: Pupils equal round and reactive to light, extra-ocular motions intact. Lids and lashes normal. Conjunctiva and sclera are non-icteric and not injected. Cornea within normal limits. Periorbital areas with no swelling, redness, or edema. ENT: Nares patent. No nasal discharge, no septal abnormalities noted. Tympanic membranes are normal and external auditory canals are clear. Oropharynx with no redness, swelling, or masses, exudates, or evidence of obstruction, uvula midline. Mucous membranes moist. Neck: Trachea midline, no thyromegaly or masses palpated, and no cervical lymphadenopathy. Supple, full range of motion without nuchal rigidity, or vertebral point tenderness. No Meningismus. Chest/axilla: Normal chest wall appearance and motion. Nontender with no deformity. No lesions are appreciated. Cardiovascular: Regular rate and rhythm with a normal S1 and S2. No gallops, murmurs, or rubs. Normal PMI, no JVD. No pulse deficits. Respiratory: Lungs have equal breath sounds bilaterally, clear to auscultation and percussion. No rales, rhonchi or wheezes noted. No increased work of breathing, no retractions or nasal flaring. Back: No spinal tenderness. No costovertebral tenderness. Full range of motion. Skin: Warm, dry with normal turgor. Normal color with no rashes, no lesions, and no evidence of cellulitis. MS/ Extremity: Pulses equal, no cyanosis. Neurovascular intact. Full, normal range of motion. Neuro: Awake and alert, GCS 15, oriented to person, place, time, and situation. Cranial nerves II-XII grossly intact. Motor strength 5/5 in all extremities. Sensory grossly intact. Cerebellar exam normal. Normal gait. Psych: Awake, alert, with orientation to person, place and time. Behavior, mood, and affect are within normal limits. 15:25 Abdomen/GI: Inspection: abdomen appears normal, Bowel sounds: normal, Palpation: moderate abdominal tenderness, in the right lower quadrant. Vital Signs: 13:33 BP 127 / 97; Pulse 88; Resp 17; Temp 98.5(TE); Pulse Ox 99% on R/A; Weight 49.9 kg (R); tw2 Height 5 ft. 1 in. (154.94 cm); Pain 9/10; 13:33 Body Mass Index 20.78 (49.90 kg, 154.94 cm) tw2 MDM: 14:41 Patient medically screened. snw 15:29 Data reviewed: vital signs, nurses notes. Data interpreted: Pulse oximetry: on room air snw is 99 %. Interpretation: normal. Counseling: I had a detailed discussion with the patient and/or guardian regarding: the historical points, exam findings, and any diagnostic results supporting the discharge/admit diagnosis, the presence of at least one elevated blood pressure reading (>120/80) during this emergency department visit, lab results, radiology results, the need for outpatient follow up, to return to the emergency department if symptoms worsen or persist or if there are any questions or concerns that arise at home. Special discussion: Based on the history and exam findings, there is no indication for further emergent testing or inpatient evaluation. I discussed with the patient/guardian the need to see the OB Gyne specialist for further evaluation of the symptoms. I discussed with the patient/guardian the need to see the primary care provider for further evaluation of the symptoms. 10/19 14:46 Order name: Basic Metabolic Panel; Complete Time: 15:40 snw 10/19 14:46 Order name: CBC with Diff; Complete Time: 15:23 snw 10/19 14:46 Order name: Hepatic Function; Complete Time: 15:40 snw 10/19 14:46 Order name: Lipase; Complete Time: 15:40 snw 10/19 14:46 Order name: Test, Serum; Complete Time: 16:36 snw 10/19 15:21 Order name: Urine Culture 10/19 14:46 Order name: CT Stone Protocol; Complete Time: 15:23 snw 10/19 15:21 Order name: Urine Microscopic Only; Complete Time: 16:36 em1 10/19 15:25 Order name: Urine Dipstick--Ancillary (enter results) 10/19 15:25 Order name: Urine --Ancillary (enter results) 10/19 14:46 Order name: IV Saline Lock; Complete Time: 14:54 snw 10/19 14:46 Order name: Labs collected and sent; Complete Time: 14:54 snw Administered Medications: 15:55 Drug: Phenergan 12.5 mg Route: IM; Site: right deltoid; iw 15:55 Drug: TORadol 30 mg Route: IM; Site: right deltoid; iw 16:07 Not Given (Other Intervention Used): Phenergan 12.5 mg IVP once iw 16:08 Not Given (Other Intervention Used): TORadol 30 mg IVP once iw Disposition: 16:16 Co-signature as Attending Physician, Miquel Rios MD I agree with the assessment and kdr plan of care. Disposition: 10/20/19 15:30 Discharged to Home. Impression: Unspecified ovarian cysts. - Condition is Stable. - Discharge Instructions: Ovarian Cyst, Dietary Guidelines to Help Prevent Kidney Stones, Heat Therapy. - Prescriptions for Diclofenac Sodium 75 mg Oral Tablet Sustained Release - take 1 tablet by ORAL route 2 times per day; 30 tablet. orphenadrine citrate 100 mg Oral Tablet Sustained Release - take 1 tablet by ORAL route 2 times per day As needed; 20 tablet. - Medication Reconciliation Form, Thank You Letter, Antibiotic Education, Prescription Opioid Use, Work release form form. - Follow up: Emergency Department; When: As needed; Reason: Worsening of condition. Follow up: Private Physician; When: 2 - 3 days; Reason: Recheck today's complaints, Continuance of care, Re-evaluation by your physician. Signatures: Dispatcher [employer] EDSD Miquel Rios MD MD kdr Christy Zamora, CABLE MAKER-C CABLE MAKER-Csnw Vania Loo, ROSEY RN iw Amber Mitchell RN RN tw2 Corrections: (The following items were deleted from the chart) 16:09 15:30 10/20/2019 15:30 Discharged to Home. Impression: Unspecified ovarian cysts. iw Condition is Stable. Forms are Work release form, Medication Reconciliation Form, Thank You Letter, Antibiotic Education, Prescription Opioid Use. Follow up: Emergency Department; When: As needed; Reason: Worsening of condition. Follow up: Private Physician; When: 2 - 3 days; Reason: Recheck today's complaints, Continuance of care, Re-evaluation by your physician. snw
[2019-10-20 15:59] LABS: Urine Bacteria 20-50 /HPF (<20); Urine Culture Reflex Order REFLEXED
[2019-10-20] MEDS ORDERED: KETOROLAC 30 MG/ML INJ ONE (16:03)
[2019-10-20] MEDS ORDERED: PROMETHAZINE INJ 25 MG/ML AMP ONE (16:03)
[2019-10-20 16:30] VITALS: BP 127/97; TEMP 98.5; O2SAT 99
--- OUTSIDE RECORDS SUMMARY | 2019-10-20 18:39 | XMS REPORT | Continuity of Care Document ---
:1995 Author Organization [facility] t Address [address] [place] [address] Care Team Providers Name Role Phone Jm [...] Department ID 2019-09-15 2019-09-15 Patient Shelia Quiñonez [facility] [id number] 00:00:00 00:00:[address] [facility] [id number] [place] [id number] Professio [phone] [address] 2019-09-02 2019-09-02 Telemedici Addisongracie [facility] [id number] 09:29:56 09:44:56 ne Visit Shelby Lopez ENGINE TESTER [id number] [facility] [id number] MATERNAL [phone] & CHILD [address] [place] [address] 2019-09-02 2019-09-02 Telephone Brandon INDAISY [id number] 00:00:00 00:00:00 Shelby C ENGINE TESTER [id number] [facility] [id number] MATERNAL [id number] & CHILD [address] [facility] 2019-08-31 2019-08-31 Telephone Shelia Quiñonez [facility] [id number] 00:00:00 00:00:00 Cam Maurice [id number] [place] [id number] Professio [phone] [address] 2019-08-26 2019-08-26 Telephone Shelia Quiñonez [facility] [id number] 00:00:00 00:00:00 Cam Maurice [id number] [place] [id number] Professio [phone] [address] 2019-08-18 2019-08-18 Patient Shelia Quiñonez [facility] [id number] 00:00:00 00:00:00 Secure Msg Jm Richards [id number] [place] [id number] Professio [phone] [address] 2019-08-14 2019-08-14 Telemedici Sukhjinder [facility] [id number] 08:47:12 09:02:12 ne Visit Suzanna Lauraton [id number] [place] [id number] Professio [phone] [address] 2019-08-13 2019-08-13 Telemedici Brandon INDAISY [id number] 08:51:20 11:54:59 ne Visit Shelby Lopez ENGINE TESTER [id number] REG[facility] [id number] MATERNAL [phone] & CHILD [address] [facility] 2019-08-13 2019-08-13 Case Sukhjinder [facility] [id number] 00:00:00 00:00:00 Management Suzanna Richards [id number] [place] [id number] Professio [phone] [address] 2019-08-13 2019-08-13 Telephone Shelia Quiñonez [facility] [id number] 00:00:00 00:00:00 Cam Castine [id number] [place] [id number] Professio [phone] [address] 2019-08-13 2019-08-13 Patient Doctor [facility] [id number] 00:00:00 00:00:00 Secure Msg Unassigned, ENGINE TESTER [id number] [place] [facility] [id number] MATERNAL [phone] & CHILD [address] [facility] 2019-08-13 2019-08-13 Patient Shelia Quiñonez [facility] [id number] 00:00:00 00:00:00 Secure Msg Jm Castine [id number] [place] [id number] Professio [phone] [address] 2019-08-10 2019-08-10 Telephone Brandon [facility] [id number] 00:00:00 00:00:00 Shelby C ENGINE TESTER [id number] REG[facility] [id number] MATERNAL [phone] & CHILD [address] [facility] 2019-08-10 2019-08-10 Telephone Brandon [facility] [id number] 00:00:00 00:00:00 Shelby C ENGINE TESTER [id number] REG[facility]AL [id number] MATERNAL [phone] & CHILD [address] [facility] Results This patient has no known results.
[2019-10-20 20:41] LABS: Urine Blood 3+ (NEG); Urine Glucose NEGATIVE (NEG); Urine Protein 3+ (NEG); Urine pH 5.5 (5.0-7.0)
== END 2019-10-20 16:09 | disposition home or self-care (01) ==
LOC: ER 13:07
DX: N83.209 Unspecified ovarian cyst, unspecified side (principal)
CPT/HCPCS: 87088; 85025; 87086; 80048; 36415; 84703; 81025; 80076; 83690; 76377; 74176; 96372; 99284; J2550; J7030; 81003; 81015

== ENCOUNTER 2020-02-17 04:39 | Emergency (ER) | payer MEDICAID ==
[2020-02-17 05:30] LABS: Absolute Lymphocytes (CBC) 1.9 K/uL (0.7-4.9); Basophils % 0.7 % (0-1.3); Hematocrit 40.9 % (36.0-45.0); Lymphocytes % 34.4 % (15.3-44.8); MPV 8.7 fL (7.6-11.3)
[2020-02-17] MEDS ORDERED: PROMETHAZINE INJ 25 MG/ML AMP ONE ×2 (05:38→06:55)
[2020-02-17] MEDS ORDERED: NA CHLORIDE 0.9% 1,000 ML ONE (05:39)
[2020-02-17] MEDS ORDERED: MORPHINE 4 MG/ML SYR ONE (05:39)
[2020-02-17 05:46] LABS: ALT/SGPT 26 U/L (12-78); AST/SGOT 21 U/L (15-37); Alkaline Phosphatase 86 U/L (45-117); BUN Blood Urea Nitrogen 9 mg/dL (7-18); Bicarbonate 22 mmol/L (21-32); Bilirubin Direct < 0.1 mg/dL (0-0.2); Bilirubin Total 0.3 mg/dL (0.2-1.0); Glucose Level 86 mg/dL (74-106); Lipase 110 U/L (73-393); Potassium 3.5 mmol/L (3.5-5.1); Protein, Total 8.1 g/dL (6.4-8.2); Sodium Level 141 mmol/L (136-145)
[2020-02-17] MEDS ORDERED: KETOROLAC 30 MG/ML INJ ONE (07:31)
--- NOTE | 2020-02-17 07:34 | EDPHYS ---
Physician Documentation [facility] Name: Natanael Dyson Age: 24 yrs Sex: Female : 1995 Arrival Date: 02/17/2020 Time: 04:41 Bed 15 Private MD: ED Physician Maycol Quiñonez HPI: 02/16 05:26 This 24 yrs old Female presents to ER via Ambulatory with complaints of pkl Possible Kidney Stone. 05:26 The patient complains of pain in the right flank. The pain does not radiate. Onset: The pkl symptoms/episode began/occurred 3 day(s) ago. Associated signs and symptoms: Pertinent positives: nausea, vomiting. Patient said she has multiple kidney stones in both kidneys. Patient seeing Urologist in [place]. 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 - Social history:: Smoking status: Patient denies any tobacco usage or history of. Patient/guardian denies using alcohol, street drugs. ROS: 05:26 Eyes: Negative for injury, pain, redness, and discharge, ENT: Negative for injury, pkl pain, and discharge, Neck: Negative for injury, pain, and swelling, Cardiovascular: Negative for chest pain, palpitations, and edema, Respiratory: Negative for shortness of breath, cough, wheezing, and pleuritic chest pain. 05:26 Abdomen/GI: Positive for nausea and vomiting. 05:26 Back: Positive for flank pain, on the right. 05:26 : Positive for decrease urine output. 05:26 MS/extremity: Negative for acute changes. 05:26 Skin: Negative for rash. 05:26 Neuro: Negative for altered mental status. Exam: 05:26 Head/Face: Normocephalic, atraumatic. Eyes: Pupils equal round and reactive to light, pkl extra-ocular motions intact. Lids and lashes normal. Conjunctiva and sclera are non-icteric and not injected. Cornea within normal limits. Periorbital areas with no swelling, redness, or edema. ENT: Nares patent. No nasal discharge, no septal abnormalities noted. Tympanic membranes are normal and external auditory canals are clear. Oropharynx with no redness, swelling, or masses, exudates, or evidence of obstruction, uvula midline. Mucous membranes moist. Neck: Trachea midline, no thyromegaly or masses palpated, and no cervical lymphadenopathy. Supple, full range of motion without nuchal rigidity, or vertebral point tenderness. No Meningismus. Chest/axilla: Normal chest wall appearance and motion. Nontender with no deformity. No lesions are appreciated. Cardiovascular: Regular rate and rhythm with a normal S1 and S2. No gallops, murmurs, or rubs. Normal PMI, no JVD. No pulse deficits. Respiratory: Lungs have equal breath sounds bilaterally, clear to auscultation and percussion. No rales, rhonchi or wheezes noted. No increased work of breathing, no retractions or nasal flaring. Abdomen/GI: Soft, non-tender, with normal bowel sounds. No distension or tympany. No guarding or rebound. No evidence of tenderness throughout. 05:26 Back: pain, that is moderate, of the right flank. 05:26 : Exam negative for acute changes. 05:26 Musculoskeletal/extremity: Exam is negative for acute changes. 05:26 Skin: Exam negative for rash. 05:26 Neuro: Orientation: is normal, Mentation: is normal, Cranial nerves: grossly normal, Motor: is normal. Vital Signs: 04:50 BP 133 / 77; Pulse 92; Resp 16; Temp 98.4(O); Pulse Ox 100% on R/A; Weight 58.97 kg jb4 (R); Height 5 ft. 1 in. (154.94 cm) (R); Pain 10/10; 06:01 BP 122 / 85; Pulse 98; Resp 16; Pulse Ox 100% on R/A; Pain 1/10; jb4 06:04 Pain 1/10; jb4 07:15 BP 117 / 81; Pulse 87; Resp 17; Pulse Ox 100% ; Pain 6/10; jl7 04:50 Body Mass Index 24.56 (58.97 kg, 154.94 cm) jb4 MDM: 04:58 Patient medically screened. pkl 07:31 Data reviewed: vital signs, nurses notes. ED course: Discussed lab and CT Scan results pkl with patient. Advised to follow up with her Urologist in 2 to 3 days. Patient understood instructions. 02/16 05:12 Order name: Basic Metabolic Panel; Complete Time: 05:52 ds4 02/16 05:12 Order name: CBC with Diff; Complete Time: 05:52 ds4 02/16 05:12 Order name: Hepatic Function; Complete Time: 05:52 ds4 02/16 05:12 Order name: Lipase; Complete Time: 05:52 ds4 02/16 05:25 Order name: Test, Serum pkl 02/16 05:25 Order name: Test Serum, [place]; Complete Time: 06:13 EDMS 02/16 05:12 Order name: IV Saline Lock; Complete Time: 05:12 ds4 02/16 05:12 Order name: Labs collected and sent; Complete Time: 05:12 ds4 02/16 06:14 Order name: CT Abd/Pelvis - IV Contrast Only pkl 02/16 06:49 Order name: Urine Dipstick--Ancillary (enter results) fc Administered Medications: 05:40 Drug: Phenergan 12.5 mg Route: IVP; Site: right antecubital; jb4 06:04 Follow up: Response: No adverse reaction; Nausea is decreased jb4 05:46 Drug: NS 0.9% 1000 ml Route: IV; Rate: 1000 ml; Site: right forearm; jb4 07:00 Follow up: Response: No adverse reaction; IV Status: Completed infusion; IV Intake: jl7 1000ml 05:48 Drug: morphine 4 mg Route: IVP; Site: right forearm; jb4 06:04 Follow up: Pain 05/22 Adult; Response: No adverse reaction; Pain is decreased; RASS: jb4 Alert and Calm (0) 07:20 Drug: TORadol 30 mg Route: IVP; Site: right forearm; jl7 07:45 Follow up: Response: No adverse reaction; Pain is decreased jl7 Disposition: 02/17/20 07:33 Discharged to Home. Impression: Right flank pain. - Condition is Stable. - Medication Reconciliation Form, Thank You Letter, Antibiotic Education, Prescription Opioid Use form. - Follow up: Private Physician; When: 2 - 3 days; Reason: Re-evaluation by your physician. - Problem is new. - Symptoms have improved. Signatures: Dispatcher [employer] EDMaycol Bazzi MD MD pkl Justin Barbosa ds4 Joss Moffett RN RN jb4 Matty Bee RN RN jl7 Corrections: (The following items were deleted from the chart) 07:57 07:33 02/17/2020 07:33 Discharged to Home. Impression: Right flank pain. Condition is jl7 Stable. Forms are Medication Reconciliation Form, Thank You Letter, Antibiotic Education, Prescription Opioid Use. Follow up: Private Physician; When: 2 - 3 days; Reason: Re-evaluation by your physician. Problem is new. Symptoms have improved. pkl
--- NOTE | 2020-02-17 07:34 | ER ---
Nurse's Notes [facility] Name: Natanael Dyson Age: 24 yrs Sex: Female : 1995 Arrival Date: 02/17/2020 Time: 04:41 Bed 15 Private MD: Diagnosis: Right flank pain Presentation: 02/16 04:50 Chief complaint: Patient states: I was diagnosed with kidneys stones in both kidneys. I jb4 have been having excruciating pain in my right side for the past 3 days. I cannot eat or drink without vomiting. I have also been having decreased urination. 04:50 Coronavirus screen: Client denies travel out of the [place] in the last 14 days. At this jb4 time, the client does not indicate any symptoms associated with coronavirus-19. Ebola Screen: Patient negative for fever greater than or equal to 101.5 degrees Fahrenheit, and additional compatible Ebola Virus Disease symptoms. Initial Sepsis Screen: Does the patient meet any 2 criteria? HR > 90 bpm. Yes Does the patient have a suspected source of infection? No. Patient's initial sepsis screen is negative. Risk Assessment: Do you want to hurt yourself or someone else? Patient reports no desire to harm self or others. Onset of symptoms was February 14, 2020. Transition of care: patient was not received from another setting of care. 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 - Social history:: Smoking status: Patient denies any tobacco usage or history of. Patient/guardian denies using alcohol, street drugs. Screenin:50 Abuse screen: Denies threats or abuse. Nutritional screening: No deficits noted. jb4 Tuberculosis screening: No symptoms or risk factors identified. Fall Risk None identified. Assessment: 04:50 General: Appears in no apparent distress. uncomfortable, Behavior is calm, cooperative, jb4 appropriate for age. Pain: Complains of pain in posterior aspect of left lateral abdomen and anterior aspect of left lateral abdomen Pain does not radiate. Pain currently is 10 out of 10 on a pain scale. Quality of pain is described as pressure, Pain began 2-3 days ago. Neuro: Level of Consciousness is awake, alert, obeys commands, Oriented to person, place, time, situation. Cardiovascular: Respiratory: Airway is patent Respiratory effort is even, unlabored, Respiratory pattern is regular, symmetrical. GI: Abdomen is flat, non-distended, Reports nausea, vomiting. : Reports pain in right flank(s). EENT: No signs and/or symptoms were reported regarding the EENT system. Derm: Skin is intact, Skin is pink, warm \T\ dry. Musculoskeletal: Circulation, motion, and sensation intact. Range of motion: intact in all extremities. 06:01 Reassessment: Patient appears in no apparent distress at this time. Patient and/or jb4 family updated on plan of care and expected duration. Pain level reassessed. Patient is alert, oriented x 3, equal unlabored respirations, skin warm/dry/pink. 07:15 Reassessment: Patient appears in no apparent distress at this time. Patient and/or jl7 family updated on plan of care and expected duration. Pain level reassessed. Patient is alert, oriented x 3, equal unlabored respirations, skin warm/dry/pink. Reports non-radiating, stabbing pain in right mid back, rated 6/10. Dr. Quiñonez notified, VO for Toradol 30 mg IVP. 07:55 Reassessment: Patient appears in no apparent distress at this time. Reports pain 0/10 jl7 after medication Patient denies pain at this time. Patient states feeling better. Vital Signs: 04:50 BP 133 / 77; Pulse 92; Resp 16; Temp 98.4(O); Pulse Ox 100% on R/A; Weight 58.97 kg jb4 (R); Height 5 ft. 1 in. (154.94 cm) (R); Pain 10/10; 06:01 BP 122 / 85; Pulse 98; Resp 16; Pulse Ox 100% on R/A; Pain 1/10; jb4 06:04 Pain 1/10; jb4 07:15 BP 117 / 81; Pulse 87; Resp 17; Pulse Ox 100% ; Pain 6/10; jl7 04:50 Body Mass Index 24.56 (58.97 kg, 154.94 cm) jb4 ED Course: 04:41 Patient arrived in ED. cl3 04:42 Joss Moffett, RN is Primary Nurse. jb4 04:50 Arm band placed on right wrist. jb4 04:50 Patient has correct armband on for positive identification. Bed in low position. Call jb4 light in reach. Side rails up X 1. Pulse ox on. NIBP on. 04:57 Maycol Quiñonez MD is Attending Physician. pkl 05:00 Inserted saline lock: 22 gauge in right forearm, using aseptic technique. Blood ds4 collected. 05:09 Triage completed. jb4 06:49 CT Abd/Pelvis - IV Contrast Only In Process Unspecified. EDMS 07:02 Primary Nurse role handed off by Joss Moffett, RN jl7 07:02 Matty Bee, ROSEY is Primary Nurse. jl7 07:15 No provider procedures requiring assistance completed. jl7 07:55 IV discontinued, intact, bleeding controlled, No redness/swelling at site. Pressure jl7 dressing applied. Administered Medications: 05:40 Drug: Phenergan 12.5 mg Route: IVP; Site: right antecubital; jb4 06:04 Follow up: Response: No adverse reaction; Nausea is decreased jb4 05:46 Drug: NS 0.9% 1000 ml Route: IV; Rate: 1000 ml; Site: right forearm; jb4 07:00 Follow up: Response: No adverse reaction; IV Status: Completed infusion; IV Intake: jl7 1000ml 05:48 Drug: morphine 4 mg Route: IVP; Site: right forearm; jb4 06:04 Follow up: Pain 1/10 Adult; Response: No adverse reaction; Pain is decreased; RASS: jb4 Alert and Calm (0) 07:20 Drug: TORadol 30 mg Route: IVP; Site: right forearm; jl7 07:45 Follow up: Response: No adverse reaction; Pain is decreased jl7 Intake: 07:00 IV: 1000ml; Total: 1000ml. jl7 Outcome: 07:33 Discharge ordered by . pkl 07:55 Discharged to home ambulatory. jl7 07:55 Condition: stable 07:55 Discharge instructions given to patient, Instructed on discharge instructions, follow up and referral plans. Demonstrated understanding of instructions, follow-up care. 07:57 Patient left the ED. jl7 Signatures: Dispatcher [employer] EDMaycol Bazzi MD MD pkl Swanson, Donovan ds4 Joss Moffett RN RN jb4 Matty Bee RN RN jl7 Angi Cotter cl3 Corrections: (The following items were deleted from the chart) 05:12 04:50 Acuity: THIERNO 2 jb4 jb4
[2020-02-17 08:11] VITALS: TEMP 98.4; O2SAT 100
[2020-02-17 08:16] VITALS: BP 117/81
[2020-02-17 08:33] LABS: Urine Blood NEGATIVE (NEG); Urine Glucose NEGATIVE (NEG); Urine Protein NEGATIVE (NEG)
--- NOTE | 2020-02-17 10:52 | RAD REPORT ---
EXAM DESCRIPTION: CT - Abdomen Pelvis W Contrast - 02/17/2020 7:06 am CLINICAL HISTORY: The patient is 24 years old and is Female; right flank pain TECHNIQUE: Axial computed tomography images of the abdomen and pelvis with intravenous contrast. S agittal and coronal reformatted images were created and reviewed. This CT exam was performed using one or more of the following dose reduction techniques: automated exposure control, adjustment of t he mA and/or kV according to patient size, and/or use of iterative reconstruction technique. COMPARISON: CT abdomen pelvis without contrast October 20, 2019. FINDINGS: Lung bases: Unremarkable. No mass. No consolidation. ABDOMEN: Liver: Unremarkable. No mass. Gallbladder and bile ducts: Unremarkable. No calcified stones. No ductal dilation. Pancreas: No findings to suggest acute pancreatitis. No mass visualized. No ductal dilation. Spleen: Unremarkable. No splenomegaly. Adrenals: Unremarkable. No mass. Kidneys and ureters: Punctate right nephrolithiasis. No hydronephrosis or ureter stone. Kidneys are otherwise unremarkable. Stomach and bowel: No bowel dilatation or obstruction. No bowel wall thickening. PELVIS: Appendix: The visualized appendix is normal. No pericecal inflammation to suggest acute appendic itis. Bladder: Unremarkable. No mass. Reproductive: 2 cm right ovarian corpus luteum. Uterus and left ovary are unremarkable. ABDOMEN and PELVIS: Intraperitoneal space: Small amount of free fluid in the cul-de-sac, likely physiologic. No free air. Bones/joints: Mild scoliosis. No acute fracture visualized. No dislocation. Soft tissues: Unremarkable. Vasculature: Unremarkable. No abdominal aortic aneurysm. Lymph nodes: No pathologically enlarged lymph nodes. IMPRESSION: 1. Punctate right nephrolithiasis. No hydronephrosis or ureter stone. 2. 2 cm right ovarian corpus luteum. No follow-up imaging is recommended. 3. Normal appendix. Electronically signed by: Anusha Pratt MD 02/17/2020 7:00 AM CDT Due to temporary technical issues with the PACS/Fluency reporting system, reports are being signed by the in house radiologist without review as a courtesy to ensure prompt reporting. The interpreting r adiologist is fully responsible for the content of the report.
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
--- OUTSIDE RECORDS SUMMARY | 2020-02-18 17:17 | XMS REPORT | Summary of Care ---
:1995 Author Organization [facility] - [facility] Address [address] [place] [id number] Care Team Providers Name Role Phone Jessica Baker Insurance Hmo Jm Quiñonez MD Primary Care Provider Reason for Referral Radiology Services (STAT) Status Reason Specialty Diagnoses / Referred By Referred To Procedures Contact Contact New Request Diagnostic Diagnoses Flank pain RLQ abdominal pain Dev, K Radiology Procedures US PELVIS COMPLETE WITH TRANSVAGINAL Sharlene, PAC [address] [phone] MRI/CAT Scan (STAT) Status Reason Specialty Diagnoses / Referred By Referred To Procedures Contact Contact New Request Diagnostic Diagnoses RLQ abdominal pain Dev, K Radiology Procedures CT ABDOMEN PELVIS W CONTRAST Sharlene, PAC [address] [address] Reason for Visit Reason Comments Flank Pain Auth/Cert Status Reason Specialty Diagnoses / Referred By Referred To Procedures Contact Contact Emergency Medicine [facility] Em ergency Dept [address] [place] [phone] Fax: Encounter Details Date Type Department Care Team Description 11/25/2019 Emergency ADC-Emergency Dev, K Sharlene, Flank pain (Primary Dx); Department PAC RLQ abdominal pain; [address] [place] [address] [address] [facility] Suspected Covid-19 Virus Infection [place], [place] [id number] [place] [address] [address] [place] [address] Allergies Active Allergy Reactions Severity Noted Date Comments Metoclopramide Hcl Anxiety 07/12/2019 Patient s ays she gets figity, angry and mean documented as of this encounter (statuses as of 11/25/2019) Medications Medication Sig Dispensed Refills Start Date [...] as of this encounter (statuses as of 11/25/2019) Active Problems Problem Noted Date Other general counseling and advice for contraceptive management 09/02/2019 Routine follow-up 08/13/2019 Back pain 08/13/2019 Other depression 08/13/2019 Cervical Papanicolaou smear negative within last 12 mo [facility] 06/19/2019 Overview: 12/2018 NIL pap , see scanned records History of tubal ligation 05/08/2019 Anxiety during in second trimester, antepart um 04/16/2019 Asthma affecting in third trimester 04/16/20 19 documented as of this encounter (statuses as of 11/25/2019) Resolved Problems Problem Noted Date Resolved Date [...] as of this encounter (statuses as of 11/25/2019) Immunizations Name Administration Dates Next Due Influenza [...] Sign Reading Time Taken Comments Blood Pressure 119/76 11/25/2019 3:00 PM CDT Pulse 84 11/25/2019 3:00 PM CDT Temperature 36.9 C (98.4 F) 11/25/2019 4:44 PM CDT Respiratory Rate 18 11/25/2019 4:44 PM CDT Oxygen Saturation 100% 11/25/2019 4:44 PM CDT Inhaled Oxygen Concentration - - Weight 55.5 kg (122 lb 4.8 oz) 11/25/2019 12:20 PM CDT Height - - Body Mass Index 23.11 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 Coronavirus Disease 2019 (COVID-19): Prevention ([place]az[place])Coronavirus Disease 2019: Caring for Yourself and Others ([place]akh)Abdominal Pain, Adult ([place]akh) documented in this encounter Plan of Treatment Date Type Specialty Care Team Description 11/26/2019 Appointment Radiology Suzanna Slaughter PA-C [address] [place] [phone] 2020 Office Visit Obstetrics & Gynecology Suzanna Slaughter PA-C [address] [place] [phone] Name Type Priority Associated Diagnoses Date/Ti me URINE CULTURE LAB STAT Flank pain 11/25/2019 1: 14 PM CDT CORONAVIRUS COVID-19 LAB STAT Flank pain 11/25/2019 4:33 PM TESTING RLQ abdominal pa in CDT Suspected Covid-19 Virus Infection Name Type Priority Associated Diagnoses Order S chedule URINE CULTURE LAB Routine Flank pain ONCE for 1 Occ urrences starting 2019 until 0 CORONAVIRUS COVID-19 LAB Routine Flank pain ONCE for 1 Occurrences TESTING RLQ abdominal pa in starting 11/25/2019 Suspected Covid-19 until Virus Infection Health Maintenance Due Date Last Done Comments [...] Procedure Name Priority Date/Time Associated Comments Diagnosis US PELVIS COMPLETE STAT 11/25/2019 4:20 Flank pain Results for this WITH TRANSVAGINAL PM CDT RLQ abdominal pain proc edure are in the results section. CT ABDOMEN PELVIS W STAT 11/25/2019 2:37 RLQ abdominal antonino n Results for this CONTRAST PM CDT procedure are i n the results section. COMP. METABOLIC PANEL STAT 11/25/2019 1:32 Flank pain Re sults for this (44200) PM CDT procedure are i n the results section. LIPASE STAT 11/25/2019 1:32 RLQ abdominal pain Resul ts for this PM CDT procedure are i n the results section. CBC WITH DIFFERENTIAL STAT 11/25/2019 1:30 Flank pain Re sults for this PM CDT procedure are i n the results section. CBC WITH DIFFERENTIAL Routine 11/25/2019 1:30 Flank pain Re sults for this PM CDT procedure are i n the results section. POCT TEST [place] 11/25/2019 12:42 Flank pain Resu lts for this PM CDT procedure are i n the results section. URINALYSIS STAT 11/25/2019 12:42 Flank pain Results for this PM CDT procedure are i n the results section. documented in this encounter Results US PELVIS COMPLETE WITH TRANSVAGINAL (11/25/2019 4:20 PM CDT) Specimen Narrative Performed At HISTORY: Right-sided pelvic pain and rig ht lower quadrant pain. PACS/VR/DOSE TECHNIQUE: Both transabdominal and transvaginal pelvic ultrasound studies were completed by the technologist. FINDINGS: Comparison is made with CT scan of abdomen a nd pelvis done today. Uterus is slightly enlarged, normal in shape, measures approximately 8.8 x 4.4 x 5.6 cm in size with homogeneous echo texture of the myometrium. Small 5 mm nabothian cyst is noted in the cerv ix. Endometrial echo complex is 6.1 mm. Mini mal free fluid noted in the cul-de-sac. Right ovary is 2.9 x 3.4 x 2.4 cm (12.97 ml) and left ovary is 2.6 x 2.3 x 1.4 cm (4.78 ml). Multiple cystic lesions are detected in the right ovary, largest is 14 mm. CONCLUSIONS: 1. Normal size uterus with no focal myom etrial lesions seen. 2. No endometrial hyperplasia. 3. Right ovary is larger than left due to multiple cys ts, largest of 14 mm size. Minimal free fluid in the cul-de-sac is consiste nt with physiologic change. Procedure Note [facility], Radiant Results Inft User - 2019 4:25 PM CDT HISTORY: Right-sided pelvic pain and right lower quadrant pain. TECHNIQUE: Both transabdominal and trans vaginal pelvic ultrasound studies were completed by the technologist. FINDINGS: Comparison is made with CT sca n of abdomen and pelvis done today. Uterus is slightly enlarged, normal in s hape, measures approximately 8.8 x 4.4 x 5.6 cm in size with homogeneous ec ho texture of the myometrium. Small 5 mm nabothian cyst is noted in the cerv ix. Endometrial echo complex is 6.1 mm. Mini mal free fluid noted in the cul-de-sac. Right ovary is 2.9 x 3.4 x 2.4 cm (12.97 ml) and left ovary is 2.6 x 2.3 x 1.4 cm (4.78 ml). Multiple cystic lesion s are detected in the right ovary, largest is 14 mm. CONCLUSIONS: 1. Normal size uterus with no focal myom etrial lesions seen. 2. No endometrial hyperplasia. 3. Right ovary is larger than left due t o multiple cysts, largest of 14 mm size. Minimal free fluid in the cul-de-s ac is consistent with physiologic change. Performing Organization Address City/State/Zipcode Phone Number PACS/VR/DOSE CT ABDOMEN PELVIS W CONTRAST (11/25/2019 2:37 PM CDT) Specimen Impressions Performed At 1. No radiographic findings to explain patient's abdominal pain. PACS/VR/DOSE 2. Evidence of prior . 3. Additional findings as above. Narrative Performed At CT ABDOMEN AND PELVIS WITH CONTRAST PACS/VR/DOSE REASON FOR STUDY: Abd pain, acute, gener alized COMPARISON: None available. TECHNIQUE: Multidetector axial CT images from lung bas es through proximal thighs after IV administration of nonion ic iodinated contrast material. Coronal and sagittal MPR images also gen erated. FINDINGS: Lower chest: Bibasilar dependent atelect asis. Trace anterior pericardial fluid. ABDOMEN AND PELVIS Liver: Liver measures 17.1 cm in craniocaudal dimensio n. No focal hepatic lesions identified. Biliary Tract/GB: No biliary ductal dilatation. Physio logically distended gallbladder without radiopaque cholelith iasis. No pericholecystic free fluid. Spleen: Within normal limits. Pancreas: Within normal limits. Adrenals: Within normal limits. Kidneys: Kidneys enhance symmetrically. Mild fullness of the right collecting system. However, there is no urinary system calculi. Overall, no hydronephrosis. No renal mass. Bowel: Both small and large bowel appear unremarkable. Appendix is normal. Small sliding-type hiatal hernia. No abn ormal bowel dilatation or wall thickening. Peritoneum: No pneumoperitoneum or free fluid. Patent abdominal vasculature. Vasculature: Mildly prominent main portal vein measuri ng up to 1.7 cm in AP dimension measured above the splenic vei n confluence. This may suggest elevated portal pressures. Lymph Nodes: Within normal limits. Pelvic organs: Uterus is normal for the degree of dist ention. No radiopaque calculi. Evidence of low transverse incision and C-sec tion. Left ovary is unremarkable. Right ovary demonstrates a 1.5 cm cyst. There is trace amount of simple fluid surrounding the right ov robert. Abdominal/Pelvic Wall: Low transverse scar as above. S mall fat-containing umbilical hernia. BONES: No acute or aggressive osseous ab normality. Procedure Note [facility], Radiant Results Inft User - 2019 3:[address] ABDOMEN AND PELVIS WITH CONTRAST REASON FOR STUDY: Abd pain, acute, gener alized COMPARISON: None available. TECHNIQUE: Multidetector axial CT images from lung bases through proximal thighs after IV administration of nonion ic iodinated contrast material. Coronal and sagittal MPR images also gen erated. FINDINGS: Lower chest: Bibasilar dependent atelect asis. Trace anterior pericardial fluid. ABDOMEN AND PELVIS Liver: Liver measures 17.1 cm in cranioc audal dimension. No focal hepatic lesions identified. Biliary Tract/GB: No biliary ductal dila tation. Physiologically distended gallbladder without radiopaque cholelith iasis. No pericholecystic free fluid. Spleen: Within normal limits. Pancreas: Within normal limits. Adrenals: Within normal limits. Kidneys: Kidneys enhance symmetrically. Mild fullness of the right collecting system. However, there is no urinary system calculi. Overall, no hydronephrosis. No renal mass. Bowel: Both small and large bowel appear unremarkable. Appendix is normal. Small sliding-type hiatal hernia. No abn ormal bowel dilatation or wall thickening. Peritoneum: No pneumoperitoneum or free fluid. Patent abdominal vasculature. Vasculature: Mildly prominent main lisa l vein measuring up to 1.7 cm in AP dimension measured above the splenic vei n confluence. This may suggest elevated portal pressures. Lymph Nodes: Within normal limits. Pelvic organs: Uterus is normal for the degree of distention. No radiopaque calculi. Evidence of low transverse inci lang and . Left ovary is unremarkable. Right ovary demonstrates a 1.5 cm cyst. There is trace amount of simple fluid surrounding the right ov robert. Abdominal/Pelvic Wall: Low transverse sc ar as above. Small fat-containing umbilical hernia. BONES: No acute or aggressive osseous ab normality. IMPRESSION 1. No radiographic findings to explain patient's abdominal pain. 2. Evidence of prior . 3. Additional findings as above. Performing Organization Address City/State/Zipcode Phone Number PACS/VR/DOSE LIPASE (11/25/2019 1:32 PM CDT) Pathologist Sig nature LIPASE 84 0 - 220 U/L [facility] Specimen Blood - VENOUS Performing Organization Address City/[facility]/Zipcode Phone Number [facility] CLIA: [id number], [address] [place] [address] COMP. METABOLIC PANEL ([address]) (11/25/2019 1:32 PM CDT) Pathologist [facility] nature NA 138 135 - 145 [facility] mmol/L [facility] K 3.6 3.5 - 5.0 [facility] mmol/L [facility] CL 106 98 - 108 mmol/L [facility] CO2 TOTAL 21 (L) 23 - 31 mmol/L [facility] AGAP 11 2 - 16 [facility] BUN 13 7 - 23 mg/dL [facility] GLUCOSE 98 70 - 110 mg/dL [facility] CREATININE 0.79 0.50 - 1.04 [facility] mg/dL [facility] TOTAL BILI 0.9 0.1 - 1.1 mg/dL [facility] CALCIUM 9.7 8.6 - 10.6 [facility] mg/dL [facility] T PROTEIN 8.6 (H) 6.3 - 8.2 g/dL [facility] ALBUMIN 5.0 3.5 - 5.0 g/dL [facility] ALK PHOS 84 34 - 122 U/L [facility] ALTv 40 (H) 5 - 35 U/L [facility] AST(SGOT) 38 13 - 40 U/L [facility] eGFR Calculation 89.4 mL/min/1.73m2 [facility] ([facility] [place]) eGFR Calculation 108.4 mL/min/1.73m2 [facility] () [facility] Specimen Blood - VENOUS Narrative Performed At Association of Glomerular Filtration Rate (GFR) [facility] and Staging of Kidney Disease* [...] tests). Performing Organization Address City/State/Zipcode Phone Number [facility] CLIA: [id number], [address] [place], [place] [address] CBC WITH DIFFERENTIAL (11/25/2019 1:30 PM CDT) Pathologist Sig nature WBC 6.80 4.30 - 11.10 [facility] 10*3/L [facility] RBC 4.63 3.93 - 5.25 [facility] 10*6/L [facility] HGB 13.0 11.6 - 15.0 g/dL [facility] HCT 39.6 35.7 - 45.2 % [facility] MCV 85.5 80.6 - 95.5 fL [facility] MCH 28.1 25.9 - 32.8 pg [facility] MCHC 32.8 31.6 - 35.1 g/dL [facility] RDW-SD 43.6 39.0 - 49.9 fL [facility] RDW-CV 13.9 12.0 - 15.5 % [facility] PLT 350 166 - 358 [facility] 10*3/L [facility] MPV 10.3 9.5 - 12.9 fL [facility] NRBC/100 WBC 0.0 0.0 - 10.0 /100 [facility] WBCs [facility] NRBC x10^3 <0.01 10*3/L [facility] GRAN MAT (NEUT) % 53.8 % [facility] IMM GRAN % 0.30 % [facility] LYMPH % 36.6 % [facility] MONO % 5.3 % [facility] EOS % 3.4 % [facility] BASO % 0.6 % [facility] GRAN MAT x10^3(ANC) 3.66 1.88 - 7.09 [facility] 10*3/uL [facility] IMM GRAN x10^3 <0.03 0.00 - 0.06 [facility] 10*3/uL HOSPITAL LABORATORY LYMPH x10^3 2.49 1.32 - 3.29 [facility] 10*3/uL [facility] MONO x10^3 0.36 0.33 - 0.92 [facility] 10*3/uL [facility] EOS x10^3 0.23 0.03 - 0.39 [facility] 10*3/uL [facility] BASO x10^3 0.04 0.01 - 0.07 [facility] 10*3/uL [facility] Specimen Blood - VENOUS Performing Organization Address City/State/Zipcode Phone Number [facility] CLIA: [id number], [address] [place], [place] [address] POCT TEST (11/25/2019 12:42 PM CDT) Pathologist Sig nature POCT PREG negative On board controls acceptable present with C Line POCT PREG LOT # [id number] POCT PREG TEST DATE 12/10/2020 Specimen Urine - URINE, CLEAN CATCH URINALYSIS (11/25/2019 12:42 PM CDT) Pathologist Sig nature APPEARANCE Clear Clear [facility] COLOR Yellow Yellow [facility] PH 6.0 4.8 - 8.0 [facility] SP GRAVITY 1.023 1.003 - 1.030 [facility] GLU U QUAL Normal Normal [facility] BLOOD 1+ (A) Negative [facility] KETONES Negative Negative [facility] PROTEIN Negative Negative [facility] UROBILIN Normal Normal [facility] BILIRUBIN Negative Negative [facility] NITRITE Negative Negative [facility] LEUK ANJELICA Negative Negative [facility] RBC/HPF 5 (H) 0 - 3 HPF [facility] WBC/HPF 1 0 - 5 HPF [facility] BACTERIA Negative Negative [facility] MUCOUS Moderate (A) Negative LPF [facility] SQ EPITH 7 HPF [facility] HYAL CAST 1 <=2 LPF [facility] Specimen Urine - URINE, CLEAN CATCH Performing Organization Address City/State/Zipcode Phone Number [facility] CLIA: [id number], [address] [place] [address] documented in this encounter Visit Diagnoses Diagnosis Flank pain - Primary Abdominal pain, unspecified site RLQ abdominal pain Abdominal pain, right lower quadrant Suspected Covid-19 Virus Infection documented in this encounter Administered Medications Medication Order MAR Action Action Date Dose Rate Site iohexol (OMNIPAQUE 350 BULK-150 Given 11/25/2019 2:33 PM CDT 12 0 mL mL) injection 120 mL 120 mL, Intravenous, ONCE, 1 dose, Sat11/25/19 at 1445, Routine ketorolac (TORADOL) injection 30 mg Given 11/25/2019 3:05 PM CDT 30 mg 30 mg, Slow IV Push, ONCE, 1 dose, Sat11/25/19 at 1600, [place], [employer] team member approving Restricted medication: Kaycee VALADEZ morpHINE injection 4 mg Given 11/25/2019 1:33 PM CDT 4 mg 4 mg, Slow IV Push, ONCE, 1 dose, 11/25/19 at 1430, STAT NaCl 0.9% (NS) bolus infusion New Bag 11/25/2019 1:33 PM CDT 1,000 mL 999 mL/hr 1,000 mL at 999 mL/hr, 1,000 mL, IV Infusion, ONCE, 1 dose, 11/25/19 at 1415, STAT ondansetron (ZOFRAN (PF)) injection 4 mg Given 11/25/2019 1:33 PM CDT 4 mg 4 mg, Slow IV Push, ONCE, 1 dose, 11/25/19 at 1430, [place] ondansetron (ZOFRAN (PF)) injection 4 mg Given 11/25/2019 4:41 PM CDT 4 mg 4 mg, Slow IV Push, ONCE, 1 dose, Sat11/25/19 at 1700, [place] documented in this encounter Additional Health Concerns Infection Onset Date Last Indicated Resolved Time COVID-19 Rule Out 11/25/2019 11/25/2019 documented as of this encounter Insurance Payer Benefit Plan / Subscriber ID Effective Phone Address T [facility] Dates SAMMY CHRISTIANSON xxxxxxxxx 2019- [address] Medic aid [facility] [id number] MANAGED MEDICAID [place], [place] documented as of this encounter"
--- OUTSIDE RECORDS SUMMARY | 2020-02-18 17:17 | XMS REPORT | Continuity of Care Document ---
:1995 Author Organization [facility] t Address [address] [place] [address] Care Team Providers Name Role Phone Coretta FELIX Attending Clinician Problems This patient has no known problems. Allergies, Adverse Reactions, Alerts This patient has no known allergies or adverse reactions. Medications This patient has no known medications. Procedures This patient has no known procedures. Encounters Start End Encounter Admission Attending Care Care Encounter Source Date/Time Date/Time Type Type Clinicians Facility Department ID 2020 2020 Patient Coretta, Lopez [facility] [id number] 00:00:00 00:00:00 Secure Msg Y HEALTH [id number] [id number] 2020 2020 Patient Coretta, Lopez [facility] [id number] 00:00:00 00:00:00 Secure Msg Y HEALTH [id number] [id number] 2020 2020 Patient Coretta, Lopez [facility] [id number] 00:00:00 00:00:00 Secure Msg Y HEALTH [id number] [id number] 2020 2020 Refill Coretta, Lopez [place] [id number] 00:00:00 00:00:00 MULTISPEC [id number] [facility] [id number] [place] [id number] [facility] 2020 2020 Telephone Lopez Hitchcock [facility] [id number] 00:00:00 00:00:[id number] [facility] [id number] [facility] 2020 2020 [facility] [id number] 00:00:00 00:00:[id number] [facility] [id number] [facility] 2020-02-17 2020-02-17 Patient Lopez Hitchcock [facility] [id number] 00:00:00 00:00:00 Secure Msg MULTISPEC [id number] [facility] [id number] [place] [id number] [facility] Results This patient has no known results.
--- OUTSIDE RECORDS SUMMARY | 2020-02-18 17:18 | XMS REPORT | Summary of Care ---
:1995 Author Organization [facility] Address [address] [place] [address] Care Team Providers Name Role Phone Jessica Baker Insurance Hmo Jm Quiñonez MD Primary Care Provider Encounter Details Date Type Department Care Team Description [facility]2019 [facility] [place] [address] [place] [address] [place] [phone] Allergies Active Allergy Reactions Severity Noted Date Comments Metoclopramide Hcl Anxiety 07/12/2019 Patient s ays she gets figity, angry and mean documented as of this encounter (statuses as of 12/05/2019) Medications Medication Sig Dispensed Refills Start Date [...] as of this encounter (statuses as of 12/05/2019) Active Problems Problem Noted Date Other general [...] as of this encounter (statuses as of 12/05/2019) Resolved Problems Problem Noted Date Resolved Date [...] as of this encounter (statuses as of 12/05/2019) Immunizations Name Administration Dates Next Due Influenza [...] Visit Obstetrics & Gynecology Suzanna Slaughter PA-C [address] [place] [address] [phone] Health Maintenance Due Date Last Done [...] Results Not on filedocumented in this encounter Additional Health Concerns Infection Onset Date Last Indicated Resolved Time COVID-19 Rule Out 11/25/2019 11/25/2019 11/26/2019 11: 10 AM CDT documented as of this encounter Insurance Payer Benefit Plan / Subscriber ID Effective Phone Address T [facility] Group Dates SAMMY CHRISTIANSON xxxxxxxxx 2019-Pres [address] Medic aid HEALTHCARE [place]CARE [place] [id number] MANAGED MEDICAID [place], [place] documented as of this encounter
--- OUTSIDE RECORDS SUMMARY | 2020-02-18 17:18 | XMS REPORT | Summary of Care ---
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 LABORATORY Specimen Blood - VENOUS Performing Organization Address City/State/Zipcode Phone Number [facility] CLIA: [id number] [place] [address] documented in this encounter Visit Diagnoses Diagnosis Flank pain - Primary Abdominal pain, unspecified site documented in this encounter Administered Medications Medication Order MAR Action Action Date Dose Rate Site cefTRIAXone (ROCEPHIN) 1,000 mg Given 12/26/2019 11:54 AM CDT 1, 000 mg in NaCl 0.9% (NS) 50 mL MINI-BAG 1,000 mg, IV Piggyback, ONCE, 1 dose, 12/26/19 at 1245, 50 mL, Reason for Anti-Infective: Empiric Therapy for Suspected Infection, Empiric Therapy Site: Urine, Duration of therapy: 72 hours ketorolac (TORADOL) injection 30 mg Given 12/26/2019 9:30 AM CDT 30 mg 30 mg, Slow IV Push, ONCE, 1 dose, 12/26/19 at 0930, [place], council member approving Restricted medication: MAGGIE HAMILTON morpHINE injection 4 mg Given 12/26/2019 10:38 AM CDT 4 mg 4 mg, Slow IV Push, ONCE, 1 dose, 12/26/19 at 1145, STAT NaCl 0.9% (NS) bolus infusion New Bag 12/26/2019 9:30 AM CDT 1,000 mL 999 mL/hr 1,000 mL at 999 mL/hr, 1,000 mL, IV Infusion, ONCE, 1 dose, 12/26/19 at 0930, [place] ondansetron (ZOFRAN (PF)) injection 4 mg Given 12/26/2019 10:38 AM CDT 4 mg 4 mg, Slow IV Push, ONCE, 1 dose, 12/26/19 at 1145, [place] documented in this encounter Insurance Payer Benefit Plan / Subscriber ID Effective Phone Address T ype Group Dates SAMMY BAZANINA [id number] 2019-Pres [address] Medic aid [employer] [place] [id number] MANAGED MEDICAID [place], [place] documented as of this encounter
--- OUTSIDE RECORDS SUMMARY | 2020-02-18 17:18 | XMS REPORT | Summary of Care ---
:1995 Author Organization [facility] Address [address] [place] [address] Care Team Providers Name Role Phone Jessica Baker Insurance Hmo Jm Quiñonez MD Primary Care Provider Encounter Details Date Type Department Care Team Description 12/26/2019 Orders Only [facility] Doctor Unassigned, No [address] [facility] Name [place] [id number] [address] [place] [address] Allergies Active Allergy Reactions Severity Noted Date [...] Papanicolaou smear negative within last 12 mo [facility] 06/19/2019 Overview: 12/2018 NIL pap , [...] Assigned at Date Recorded Not on file documented as of this encounter Last Filed Vital Signs Not on filedocumented in this encounter Plan of Treatment Date Type Specialty Care Team Description 2020 Office Visit Obstetrics & Gynecology Suzanna Slaughter PA-C [address] [place] [address] [phone] Health Maintenance Due Date Last Done [...] Procedures Procedure Name Priority Date/Time Associated Diagnosis Comme nts CONSENT/REFUSAL FOR Routine 12/26/2019 9:15 AM CDT DIAGNOSIS AND TREATMENT documented in this encounter Results Not on filedocumented in this encounter Insurance Payer Benefit Plan / Subscriber ID Effective Phone Address T [facility] Group Dates SAMMY CHRISTIANSON [id number] 2019-Pres [address] BOX Medic aid HEALTHCARE - HEALTHCARE [place] [id number] MANAGED MEDICAID [place], [place] documented as of this encounter
--- OUTSIDE RECORDS SUMMARY | 2020-02-18 17:18 | XMS REPORT | Summary of Care ---
:1995 Author Organization [facility] - [facility] Address [address] [place] [address] Care Team Providers Name Role Phone BakerJessica Insurance Hmo Jm Quiñonez MD Primary Care Provider Encounter Details Date Type Department Care Team Description 10/23/2019 Patient Secure Msg [facility] Women's Shelia Quiñonez MD [facility]- [address] [facility] [address], [address] [place] [address] [place] [address] [phone] Allergies Active Allergy Reactions Severity Noted Date Comments Metoclopramide Hcl Anxiety 07/12/2019 Patient s ays she gets figity, angry and mean documented as of this encounter (statuses as of 11/28/2019) Medications Medication Sig Dispensed Refills Start Date [...] as of this encounter (statuses as of 11/28/2019) Active Problems Problem Noted Date Other general [...] as of this encounter (statuses as of 11/28/2019) Resolved Problems Problem Noted Date Resolved Date [...] as of this encounter (statuses as of 11/28/2019) Immunizations Name Administration Dates Next Due Influenza [...] Visit Obstetrics & Gynecology Suzanna Slaughter PA-C [address] [place] [address] [phone] Health Maintenance Due Date Last Done [...] / Subscriber ID Effective Phone Address T [facility] Group Dates SAMMY CHRISTIANSON xxxxxxxxx 2019-Pres [address] B[address] Medic aid HEALTHCARE [place]CARE [place] [id number] MANAGED MEDICAID [place], [place] documented as of this encounter
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
--- OUTSIDE RECORDS SUMMARY | 2020-02-18 17:19 | XMS REPORT | Summary of Care ---
:[address] [facility] Address [address] [place] [address] Care Team Providers Name Role Phone Jessica Baker Insurance Hmo Jm Quiñonez MD Primary Care Provider Encounter Details Date Type Department Care Team Description 01/13/2020 Patient Secure [facility] Lopez Hitchcock M D Nephrology- [address], [address] [address] [phone] [place] [address] Allergies Active Allergy Reactions Severity Noted Date Comments Metoclopramide Hcl Anxiety 07/12/2019 Patient s ays she gets figity, angry and mean documented as of this encounter (statuses as of 01/15/2020) Medications Medication Sig Dispensed Refills Start Date [...] tabletIndications: mouth at bedtime. Insomnia, unspecified type documented as of this encounter (statuses as of 01/15/2020) Active Problems Problem Noted Date Anxiety disorder, unspecified type 01/05/2020 Insomnia, unspecified type 01/05/2020 Other depression 08/13/2019 Cervical Papanicolaou smear negative within last 12 mo [facility] 06/19/2019 Overview: 12/2018 NIL pap , see scanned records documented as of this encounter (statuses as of 01/15/2020) Resolved Problems Problem Noted Date Resolved Date Other general counseling and advice for contraceptive 201901/05/2020 management Routine follow-up 08/13/2019 01/05/2020 Back pain 08/13/2019 01/05/2020 Liveborn , of morel , born in [...] as of this encounter (statuses as of 01/15/2020) Immunizations Name Administration Dates Next Due Influenza [...] Signs Not on filedocumented in this encounter Miscellaneous Notes Telephone Encounter - Za Enriquez RN - 01/15/2020 11:11 AM CDT [phone] (home) Left message to call back documented in this encounter Plan of Treatment Date Type Specialty Care Team Description 02/08/2020 Telemedicine Visit Obstetrics & Gynecology Shelia Quiñonez MD [address] [place] [address] 775 [address] [phone] 2020 Office Visit Obstetrics & Gynecology Suzanna Slaughter PA-C [address] [place] [phone] Health Maintenance Due Date Last Done Comments [...] Address T ype Group Dates SAMMY CHRISTIANSON [id number] 2019-Pres [address] BOX Medic aid [place]CARE [place] [id number] MANAGED MEDICAID [place], [place] documented as of this encounter
--- OUTSIDE RECORDS SUMMARY | 2020-02-18 17:19 | XMS REPORT | Summary of Care ---
:1995 Author Organization [facility] Address [address] [place] [address] Care Team Providers Name Role Phone Jessica Baker Insurance Hmo Jm Quiñonez MD Primary Care Provider Reason for Visit Reason Comments Assessment Encounter Details Date Type Department Care Team Description 01/05/2020 Telephone [facility] Women's Tamy Slaughter PA-C Assessment Healthcare- [address] [facility] [address] [place] [address] [place] [address] [phone] Allergies Active Allergy Reactions Severity Noted Date Comments Metoclopramide Hcl Anxiety 07/12/2019 Patient s ays she gets figity, angry and mean documented as of this encounter (statuses as of 01/05/2020) Medications Medication Sig Dispensed Refills Start Date [...] hours as needed for Pain (scale 4-6). acetaminophen-codeine Take 1 tablet by 30 tablet 0 12/26/2019 Active (TYLENOL-CODEINE #3) mouth every 4 300-30 mg (four) hours as tabletIndications: needed for Pain acute pain (scale 1-3). Indications: acute pain documented as of this encounter (statuses as of 01/05/2020) Active Problems Problem Noted Date Other general counseling and advice for contraceptive management 09/02/2019 Routine follow-up 08/13/2019 Back pain 08/13/2019 Other depression 08/13/2019 Cervical Papanicolaou smear negative within last 12 mo [facility] 06/19/2019 Overview: 12/2018 NIL pap , see scanned records History of tubal ligation 05/08/2019 Anxiety during in second trimester, antepart um 04/16/2019 Asthma affecting in third trimester 04/16/20 19 documented as of this encounter (statuses as of 01/05/2020) Resolved Problems Problem Noted Date Resolved Date [...] as of this encounter (statuses as of 01/05/2020) Immunizations Name Administration Dates Next Due Influenza [...] this encounter Miscellaneous Notes Telephone Encounter - Fany Alba RN - 01/05/2020 9:27 AM CDTRN spoke with patient, name and verified. Patient states that her medication is not working and she is having a lot of anxiety from everything going on right now. RN advised patient that we cannot just change her medications. RN advised that patient should be seen at [facility] since that is where the medication was prescribed. Patient stated that she called [facility] and they blew her off and told her they did not have anything available. RN offered patient a telehealth appointment for today, patient accepted. Call transferred to [facility] for appointment. Telehealth Appointment scheduled for today at 1:[address] Quiñonez. Fany Alba RN 01/05/2020 9:32 AM Telephone Encounter - Alexsandra Melgar - 01/05/2020 8:52 AM CDTPatient is calling and is requesting a new medication for her anxiety, patient stated the one she istaking now is not working and her anxiety is severe due to everything going on with the weather and covid19, please call patient back in regards to this encounter. documented in this encounter Plan of Treatment Date Type Specialty Care Team Description 01/05/2020 Telemedicine Visit Obstetrics & Gynecology Shelia Quiñonez MD Arrived [address] [place] [address] [address]75 [address] [phone] 2020 Office Visit Obstetrics & Gynecology Suzanna Slaughter PA-C [address] [place] [address] [phone] Health Maintenance Due Date Last Done Comments [...] Address T e Group Dates SAMMY CHRISTIANSON [id number] 2019-Pres Alisson [address] B[address] Medic aid [place] [id number] MANAGED MEDICAID [place] documented as of this encounter
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
--- OUTSIDE RECORDS SUMMARY | 2020-02-18 17:19 | XMS REPORT | Summary of Care ---
:[address] [facility] Address [address] [place] [address] Care Team Providers Name Role Phone Jessica Baker Insurance Hmo Jm Quiñonez MD Primary Care Provider Encounter Details Date Type Department Care Team Description 01/13/2020 Patient Secure [facility] Lopez Hitchcock M D Nephrology- [address], [address] [address]th Floor [phone] [place] [address] Allergies Active Allergy Reactions Severity [...] Visit Obstetrics & Gynecology Shelia Quiñonez MD [address] [place] [address] [phone] Office Visit Obstetrics & Gynecology Suzanna Slaughter PA-C [address] [place] [phone] Health Maintenance Due Date Last Done Comments [...] / Subscriber ID Effective Phone Address T [facility] Group Dates SAMMY CHRISTIANSON [id number] 2019-Pres P O BOX Medic aid HEALTHCARE - HEALTHCARE [place] [id number] MANAGED MEDICAID [place], [place] documented as of this encounter
--- OUTSIDE RECORDS SUMMARY | 2020-02-18 17:20 | XMS REPORT | Summary of Care ---
:1995 Author Organization [facility] - [address] [address] Care Team Providers Name Role Phone Jessica Baker Insurance Hmo Jm Quiñonez MD Primary Care Provider Reason for Visit Reason Comments Lab Results Encounter Details Date Type Department Care Team Description 02/02/2020 Telephone [facility] Nephrology- Keyonna Hitchcock MD Lab Results [address] [phone] [place] [address] [place] [phone] Allergies Active Allergy Reactions Severity Noted Date Comments Metoclopramide Hcl Anxiety 07/12/2019 Patient s ays she gets figity, angry and mean documented as of this encounter (statuses as of 02/03/2020) Medications Medication Sig Dispensed Refills Start Date [...] as of this encounter (statuses as of 02/03/2020) Active Problems Problem Noted Date Anxiety disorder, unspecified type 01/05/2020 Insomnia, unspecified type 01/05/2020 Other depression 08/13/2019 Cervical Papanicolaou smear negative within last 12 mo [facility] 06/19/2019 Overview: 12/2018 NIL pap , see scanned records documented as of this encounter (statuses as of 02/03/2020) Resolved Problems Problem Noted Date Resolved Date [...] as of this encounter (statuses as of 02/03/2020) Immunizations Name Administration Dates Next Due Influenza [...] Telephone Encounter - Za Enriquez RN - 02/02/2020 2:16 PM CDT Patient calling for results of urine supersat and plan Advised I will forward the message to MD for review and recommendation and call them back with the treatment plan. Natanael Dyson verbalized an understanding. Za RN Component Latest Ref Rng & Units 01/23/2020 10:17 AM Hours Collected hr 24 Total Volume mL 1500 Sulfate, Urine-per volume mmol/L 16 Sulfate, Urine - per 24h 6 - 30 mmol/d 24 PH 5.00 - 7.50 5.78 Urine Supersaturation, CAOX 7.50 Urine Supersaturation, CAHPO4 3.35 Urine Supersaturation, UA CALC 0.91 Urine Supersaturation Interpretation Abnormal (A) Calcium, Urine - per volume mg/dL 32.2 Calcium, Urine - per 24h mg/d 483 Oxalate, Urine - per volume mg/L 14 Oxalate, Urine - per 24h 13 - 40 mg/d 21 Sodium, Urine - per volume mmol/L 163 Sodium, Urine-Per 24H 51 - 286 mmol/d 244 Uric Acid, Urine - Per Volume mg/dL 41.7 Uric Acid, Urine - Per 24H 250 - 750 mg/d 626 Citric Acid, Urine - Per Volume mg/L 385 CIT U-mg/d 320 - 1240 mg/d 578 Magnesium, Urine - Per Volume mg/dL 11.2 Magnesium, Urine - Per 24H 12 - 199 mg/d 168 Phosphorus, Urine - Per Volume mg/dL 64 Phosphorus, Urine 24H 400 - 1300 mg/d 960 Potassium, Urine - Per Volume mmol/L 25 Potassium, Urine - Per 24H 25 - 125 mmol/d 38 Chloride, Urine - Per Volume mmol/L 156 Chloride, Urine - Per 24H 140 - 250 mmol/d 234 Creatinine, Urine-per volume mg/dL 98 Creatinine, Urine-per 24 Hrs 700 - 1600 mg/d 1470 EER Supersaturation Profile, Urine See Note documented in this encounter Plan of Treatment Date Type Specialty Care Team Description 02/08/2020 Telemedicine Visit Obstetrics & Gynecology Shelia Quiñonez MD [address] [place] [address] [phone] Office Visit Obstetrics & Gynecology Suzanna Slaughter PA-C [address] [place] [phone] Health Maintenance Due Date Last Done Comments [...] Phone Address T e Group Dates SAMMY BAZANINA [id number] 2019-Pres P O BOX Medic aid [place] [id number] MANAGED MEDICAID [place], [place] documented as of this encounter
--- OUTSIDE RECORDS SUMMARY | 2020-02-18 17:20 | XMS REPORT | Summary of Care ---
:1995 Author Organization [facility] Address [address] [place] [address] Care Team Providers Name Role Phone Jessica Baker Insurance Hmo Jm Quiñonez MD Primary Care Provider Reason for Visit Reason Comments LAB WORK Auth/Cert Status Reason Specialty Diagnoses / Procedures Referred By Jessica ontact Referred To Contact Phlebotomy Diagnoses LAB DROP URINE Adc Pob Lab Draw Professional O ffice Building [address] [place] [address] , [address] [place] [address] Phone: Fax: Encounter Details Date Type Department Care Team Description 01/23/2020 Repairer [employer] Visit [facility] Lopez Hitchcock MD [address] [place] [phone] Pain; Professional Office Pob, Adc Lab Main Kidney stones Building Phlebotomy Lab Professional Office Building [address] [place] [address] , [address] [place] [phone] Allergies Active Allergy Reactions Severity Noted Date Comments Metoclopramide Hcl Anxiety 07/12/2019 Patient s ays she gets figity, angry and mean documented as of this encounter (statuses as of 01/23/2020) Medications Medication Sig Dispensed Refills Start Date [...] as of this encounter (statuses as of 01/23/2020) Active Problems Problem Noted Date Anxiety disorder, unspecified type 01/05/2020 Insomnia, unspecified type 01/05/2020 Other depression 08/13/2019 Cervical Papanicolaou smear negative within last 12 mo [facility] 06/19/2019 Overview: 12/2018 NIL pap , see scanned records documented as of this encounter (statuses as of 01/23/2020) Resolved Problems Problem Noted Date Resolved Date [...] as of this encounter (statuses as of 01/23/2020) Immunizations Name Administration Dates Next Due Influenza [...] Signs Not on filedocumented in this encounter Nursing Notes Grace Allen - 01/23/2020 10:15 AM CDT Patient presented with specimen for drop-off and was identified by and name. Collection information/ total volume were documented accordingly. The [facility] laboratoriesper lab order on today: 24 hour urine 1 Random urine Stool Swab Other documented in this encounter Plan of Treatment Date Type Specialty Care Team Description 02/08/2020 Telemedicine Visit Obstetrics & Gynecology Shelia Quiñonez MD [address] [place] [address] [address] [place], [place] [address] 2020 Office Visit Obstetrics & Gynecology Suzanna Slaughter PA-C [address] [place] [address] Name Type Priority Associated Diagnoses Date/Ti me Urine Supersaturation LAB Routine Pain 01/23/2020 10:17 AM Profile Kidney stones CDT Health Maintenance Due Date Last Done Comments [...] in this encounter Visit Diagnoses Diagnosis Pain Generalized pain Kidney stones Calculus of kidney documented in this encounter Insurance Payer Benefit Plan / Subscriber ID Effective Phone Address T ype Group Dates CHRISTIANSON CHRISTIANSON [id number] 2019-Pres P O BOX Medic aid [place] [id number] MANAGED MEDICAID [place], [place] documented as of this encounter
--- OUTSIDE RECORDS SUMMARY | 2020-02-18 17:20 | XMS REPORT | Summary of Care ---
:1995 Author Organization [facility] Address [address] [place] [address] Care Team Providers Name Role Phone Jessica Baker Insurance Hmo Jm Quiñonez MD Primary Care Provider Encounter Details Date Type Department Care Team Description 01/13/2020 Patient Secure [facility] Lopez Hitchcock M D Nephrology- [address], [address] [address] [phone] [place] [phone] Allergies Active Allergy Reactions Severity Noted Date Comments Metoclopramide Hcl Anxiety 07/12/2019 Patient s ays she gets figity, angry and mean documented as of this encounter (statuses as of 01/20/2020) Medications Medication Sig Dispensed Refills Start Date [...] as of this encounter (statuses as of 01/20/2020) Active Problems Problem Noted Date Anxiety disorder, unspecified type 01/05/2020 Insomnia, unspecified type 01/05/2020 Other depression 08/13/2019 Cervical Papanicolaou smear negative within last 12 mo [facility] 06/19/2019 Overview: 12/2018 NIL pap , see scanned records documented as of this encounter (statuses as of 01/20/2020) Resolved Problems Problem Noted Date Resolved Date [...] as of this encounter (statuses as of 01/20/2020) Immunizations Name Administration Dates Next Due Influenza [...] Telephone Encounter - Za Enriquez RN - 01/20/2020 12:07 PM CDTSpoke with patient. Will follow up on labs on Saturday . She would like results tran. Routed to MD as well. elephone Encounter - Za Enriquez RN - 01/15/2020 11:11 AM [phone] (home) Left message to call back documented in this encounter Plan of Treatment Date Type Specialty Care Team Description 01/21/2020 Carpenter Mate Visit Phlebotomy 2, Adc Lab 02/08/2020 Telemedicine Visit Obstetrics & Gynecology Shelia Quiñonez MD [address] [place] [address] [address]. [address] [place] [phone] 15 [phone] 2020 Office Visit Obstetrics & Gynecology Suzanna Slaughter PA-C [address] [place] [phone] Health Maintenance Due Date Last Done [...] / Subscriber ID Effective Phone Address T [facility] Group Dates SAMMY CHRISTIANSON [id number] 2019-Pres P O BOX Medic aid HEALTHCARE [place]ARE [place] [id number] MANAGED MEDICAID [place], [place] documented as of this encounter
--- OUTSIDE RECORDS SUMMARY | 2020-02-18 17:20 | XMS REPORT | Summary of Care ---
:1995 Author Organization [facility] - Health Address [address] [place] [address] Care Team Providers Name Role Phone Jessica Baker Insurance Hmo Jm Quiñonez MD Primary Care Provider Encounter Details Date Type Department Care Team Description 01/23/2020 Orders Only [facility] Doctor Unassigned, No [address] [facility] Name [place] [id number] [address] [place] [phone] Allergies Active Allergy Reactions Severity Noted Date [...] Treatment Date Type Specialty Care Team Description 01/23/2020 Hand Clipper Visit Phlebotomy [place], Adc Lab Main 02/08/2020 Telemedicine Visit Obstetrics & Gynecology Shelia Quiñonez MD [address] [place] [address] 775 [address] [phone] 2020 Office Visit Obstetrics & Gynecology Suzanna Slaughter PA-C [address] [place] [address] [phone] Health Maintenance Due Date Last Done Comments [...] Name Priority Date/Time Associated Diagnosis Comme nts ASSIGNMENT OF BENEFITS Routine 01/23/2020 10:09 AM CDT documented in this encounter Results Not on filedocumented in this encounter Insurance Payer Benefit Plan / Subscriber ID Effective Phone Address T [facility] Group Dates SAMMY CHRISTIANSON [id number] 2019-Pres P O BOX Medic aid HEALTHCARE - [place]CARE [place] [id number] MANAGED MEDICAID [place] documented as of this encounter
--- OUTSIDE RECORDS SUMMARY | 2020-02-18 17:20 | XMS REPORT | Summary of Care ---
:1995 Author Organization [facility] Address [address] [place] [address] Care Team Providers Name Role Phone Jessica Baker Insurance Hmo Jm Quiñonez MD Primary Care Provider Encounter Details Date Type Department Care Team Description 01/13/2020 Patient Secure [facility] Lopez Hitchcock M D Nephrology- [address], [address] [address] Floor [phone] [place] [phone] Allergies Active Allergy Reactions Severity Noted Date Comments Metoclopramide Hcl Anxiety 07/12/2019 Patient s ays she gets figity, angry and mean documented as of this encounter (statuses as of 01/28/2020) Medications Medication Sig Dispensed Refills Start Date [...] as of this encounter (statuses as of 01/28/2020) Active Problems Problem Noted Date Anxiety disorder, unspecified type 01/05/2020 Insomnia, unspecified type 01/05/2020 Other depression 08/13/2019 Cervical Papanicolaou smear negative within last 12 mo [facility] 06/19/2019 Overview: 12/2018 NIL pap , see scanned records documented as of this encounter (statuses as of 01/28/2020) Resolved Problems Problem Noted Date Resolved Date [...] as of this encounter (statuses as of 01/28/2020) Immunizations Name Administration Dates Next Due Influenza [...] Za Enriquez RN - 01/15/2020 11:11 AM [phone] (home) Left message to call back documented in this encounter Plan of Treatment Date Type Specialty Care Team Description 02/08/2020 Telemedicine Visit Obstetrics & Gynecology Shelia Quiñonez MD [address] [place] [address] [address]. [place], [place] [address] [phone] 2020 Office Visit Obstetrics & Gynecology Suzanna Slaughter PA-C [address] [place] [phone] Health Maintenance Due Date Last Done Comments [...] Address T e Group Dates SAMMY CHRISTIANSON [id number] 2019-Pres P [address] BOX Medic aid HEALTHCARE [place]ARE [place] [id number] MANAGED MEDICAID [place] documented as of this encounter
--- OUTSIDE RECORDS SUMMARY | 2020-02-18 17:20 | XMS REPORT | Summary of Care ---
:1995 Author Organization [facility] Address [address] [place] [address] Care Team Providers Name Role Phone Jessica Baker Insurance Hmo Jm Quiñonez MD Primary Care Provider Reason for Visit Reason Comments Results lab Encounter Details Date Type Department Care Team Description 01/25/2020 Telephone [facility] Nephrology- Keyonna Hitchcock MD Results (lab) [address] [address] [place] [address], [address] [place] [address] [place] [address] Allergies Active Allergy Reactions [...] Telephone Encounter - Za Enriquez RN - 01/28/2020 11:54 AM CDTUrine supersat is still pending. Called lab to check on status - They will call me back with an update. There is a discrepancy on the amount of urine that was collected. The collecting person wrote 1500 cc but the amount to 1480 was in the specimen [phone] (home) Patient reports just a bit shy of line Reported results to Lab elephone Encounter - Skylar Ham Kassandra - 01/26/2020 3:20 PM CDTAngel Nelia Dyson is a 24 year old female is calling for lab results. Please call patient [phone]. Thank you. elephone Encounter - Remedios Nettles - 01/25/2020 2:09 PM CDTPt called requesting her lab results done on 01/22. documented in this encounter Plan of Treatment Date Type Specialty Care Team Description 02/08/2020 Telemedicine Visit Obstetrics & Gynecology Shelia Quiñonez MD [address] [place] [address] DRPilar [facility] [address] [place], [place] [address] 2020 Office Visit Obstetrics & Gynecology Suzanna Slaughter PA-C [address] [place] [phone] Health Maintenance Due Date Last Done Comments [...] Effective Phone Address T ype Group Dates CHRISTIANSONMARIA LUZ CHRISTIANSON [id number] 2019-Pres [address] Medic aid [place] [id number] MANAGED MED[place]ID [place] documented as of this encounter
--- OUTSIDE RECORDS SUMMARY | 2020-02-18 17:21 | XMS REPORT | Summary of Care ---
:1995 Author Organization [facility] Address [address] [place] [address] Care Team Providers Name Role Phone Jessica Baker Insurance Hmo Jm Quiñonez MD Primary Care Provider Encounter Details Date Type Department Care Team Description 02/05/2020 Patient Secure [facility] [address], [address] [place] [address] Floor [phone] [place] [address] Allergies Active Allergy Reactions Severity Noted Date Comments Metoclopramide Hcl Anxiety 07/12/2019 Patient s ays she gets figity, angry and mean documented as of this encounter (statuses as of 02/05/2020) Medications Medication Sig Dispensed Refills Start Date [...] (BCP) FLUoxetine 10 mg Take 1 capsule 30 capsule 1 01/05/2020 Active capsuleIndications: by mouth daily. Anxiety disorder, unspecified type traZODone 50 mg Take 1 tablet by 30 tablet 1 01/05/2020 Active tabletIndications: mouth at Insomnia, unspecified bedtime. type potassium citrate 10 Take 1 tablet by 180 tablet 1 01/14/2020 Active mEq (1,080 mg) SR mouth 3 (three) tabletIndications: times daily with Pain meals. ibuprofen 600 mg Take 1 tablet by 30 tablet 0 02/03/2020 Active tabletIndications: mouth every 6 Viral URI with cough, (six) hours as Suspected Covid-19 needed for Pain Virus Infection (scale 4-6). ondansetron (ZOFRAN Take 1 tablet by 10 tablet 0 02/03/2020 Active ODT) 4 mg mouth every 8 disintegrating (eight) hours as tabletIndications: needed for Viral URI with cough, Nausea and Suspected Covid-19 Vomiting (N/V). Virus Infection benzonatate 200 mg Take 1 capsule 20 capsule 0 02/03/2020 Active capsuleIndications: by mouth 3 Viral URI with cough, (three) times Suspected Covid-19 daily as needed Virus Infection for Cough for up to 20 doses. tamsulosin (FLOMAX) Take 1 capsule 30 capsule 1 02/04/2020 Active 0.4 mg 24 hr by mouth daily. capsuleIndications: Kidney stones traMADoL (ULTRAM) 50 Take 1 tablet by 15 tablet 1 02/04/2020 1 Active mg tabletIndications: mouth every 6 acute pain (six) hours as needed for Pain (scale 4-6) for up to 7 days. Indications: acute pain documented as of this encounter (statuses as of 02/05/2020) Active Problems Problem Noted Date Anxiety disorder, unspecified type 01/05/2020 Insomnia, unspecified type 01/05/2020 Other depression 08/13/2019 Cervical Papanicolaou smear negative within last 12 mo [facility] 06/19/2019 Overview: 12/2018 NIL pap , see scanned records documented as of this encounter (statuses as of 02/05/2020) Resolved Problems Problem Noted Date Resolved Date [...] as of this encounter (statuses as of 02/05/2020) Immunizations Name Administration Dates Next Due Influenza [...] been in contact with No / Unsure 02/03/2020 4:01 PM CDT someone who was confirmed or 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 documented as of this encounter Last Filed Vital Signs Not on filedocumented in this encounter Plan of Treatment Date Type Specialty Care Team Description 02/08/2020 Telemedicine Visit Obstetrics & Gynecology Shelia Quiñonez MD [address] [place] [address] DRPilar Jae [address] [place], [place] [address] 2020 Office Visit Obstetrics & Gynecology Suzanna Slaughter PA-C 146 [facility] 208 [place] [phone] Health Maintenance Due Date Last Done Comments [...] Address T e Group Dates SAMMY CHRISTIANSON [id number] 2019-Pres [address] Medic aid HEALTHCARE [place]ARE [place] [id number] MANAGED MED[place]ID [place] documented as of this encounter
--- OUTSIDE RECORDS SUMMARY | 2020-02-18 17:21 | XMS REPORT | Summary of Care ---
:1995 Author Organization [facility] Address [address] [place] [address] Care Team Providers Name Role Phone Baker, Jessica Insurance Hmo Jm Quiñonez MD Primary Care Provider Reason for Visit Reason Comments F/U Encounter Details Date Type Department Care Team Description 02/08/2020 Telemedicine Visit [facility] Women's Shelia Quiñonez MD Insomnia, unspecified type (Primary Dx); Healthcare- [facility] Anxiety di sorder, unspecified type; Maurice CORNELL Other depression [address] [facility] [address], [address] [place], [place] [phone] Allergies Active Allergy Reactions Severity Noted Date Comments Metoclopramide Hcl Anxiety 07/12/2019 Patient s ays she gets figity, angry and mean documented as of this encounter (statuses as of 02/08/2020) Medications Medication Sig Dispensed Refills Start End Date Status Date ALBUTEROL 90 INHALE 2 PUFFS 7 Each 3 Ac tive mcg/actuation BY MOUTH EVERY 0 inhalerIndications: 6 HOURS Asthma affecting NEEDED FOR in second WHEEZING FOR trimester SHORTNESS OF BREATH norgestimate-ethiny Take 1 tablet 1 Package 2 Active l estradiol 0.25-35 by mouth 0 mg-mcg per daily. tabletIndications: Initiation of OCP (BCP) potassium citrate Take 1 tablet 180 tablet 1 Active 10 mEq (1,080 mg) by mouth 3 0 SR (three) times tabletIndications: daily with Pain meals. ibuprofen 600 mg Take 1 tablet 30 tablet 0 Active tabletIndications: by mouth every 0 Viral URI with 6 (six) hours cough, Suspected as needed for COVID-19 virus Pain (scale infection 4-6). ondansetron (ZOFRAN Take 1 tablet 10 tablet 0 Active ODT) 4 mg by mouth every 0 disintegrating 8 (eight) tabletIndications: hours as Viral URI with needed for cough, Suspected Nausea and COVID-19 virus Vomiting infection (N/V). benzonatate 200 mg Take 1 capsule 20 capsule 0 Active capsuleIndications: by mouth 3 0 Viral URI with (three) times cough, Suspected daily as COVID-19 virus needed for infection Cough for up to 20 doses. tamsulosin (FLOMAX) Take 1 capsule 30 capsule 1 Active 0.4 mg 24 hr by mouth 0 capsuleIndications: daily. Kidney stones traMADoL (ULTRAM) Take 1 tablet 15 tablet 1 02/11/20 Active 50 mg by mouth every 0 20 tabletIndications: 6 (six) hours acute pain as needed for Pain (scale 4-6) for up to 7 days. Indications: acute pain traZODone 50 mg Take 1 tablet 30 tablet 5 Active tabletIndications: by mouth at 0 Insomnia, bedtime. unspecified type FLUoxetine 10 mg Take 1 capsule 30 capsule 5 Active capsuleIndications: by mouth 0 Anxiety disorder, daily. unspecified type FLUoxetine 10 mg Take 1 capsule 30 capsule 1 0 Discontinued capsuleIndications: by mouth 0 20 (Reorder) Anxiety disorder, daily. unspecified type traZODone 50 mg Take 1 tablet 30 tablet 1 02/08/20 Discontinued tabletIndications: by mouth at 0 20 (Reorder) Insomnia, bedtime. unspecified type documented as of this encounter (statuses as of 02/08/2020) Active Problems Problem Noted Date Anxiety disorder, unspecified type 01/05/2020 Insomnia, unspecified type 01/05/2020 Other depression 08/13/2019 Cervical Papanicolaou smear negative within last 12 mo [facility] 06/19/2019 Overview: 12/2018 NIL pap , see scanned records documented as of this encounter (statuses as of 02/08/2020) Resolved Problems Problem Noted Date Resolved Date [...] as of this encounter (statuses as of 02/08/2020) Immunizations Name Administration Dates Next Due Influenza [...] encounter Progress Notes Shelia Quiñonez MD - 02/08/2020 10:30 AM CDT Verbal consent obtained from Patient: Natanael Dyson for telehealth services provided below. Communication with patient was conducted via Video Call. Location of Patient: Home Location of Provider: Clinic Date of Service: 02/08/2020 HPI: Natanael Dyson is a 24 year old female coming in for Telehealth visit for depression/anxiety/insomnia. Verbal consent was obtained from this patient for the telehealth services provided. Patient reports that she is doing well with the Fluoxetine and Trazodone. states that she has decidednot to see psych as she feels that her symptoms are controlled with current treatment and only wantsto be followed by me. States that she is currently being evaluated by urology (Dr. Lopez Hitchcock) for kidney stones. Vital Signs There were no vitals taken for this visit. Physical Exam Discussion in lieu of physical examination. NAD, smiling during visit Plan Other depression Insomnia, unspecified type (primary encounter diagnosis) Anxiety disorder, unspecified type Comment: Doing well. EPDS 1 (improved from 14 on 01/05/2020). Denies SI/HI Plan: Continue FLUoxetine 10 mg capsule and traZODone 50 mg tablet. Patient understands that if hersymptoms become not well controlled, I still recommend seeing psych. Plan of care, desired health behaviors, goals, Ddx, and any prescribed medications were discussed with the patient. I spent 15 minute(s) conducting this Telehealth encounter with the patient. Education resources and self- management tools were provided is the AVS which is accessible through [employer]. Patient/guardian/family verbalized understanding and agrees to the plan of care. Barriers to care:None. Ability to manage care: Good. If applicable, the [place] [employer] database was accessed to review any controlled substance prescription claims data. If the patient is taking prescribed medications, the [employer] prescription claims data in [employer] was reviewed to assess patient compliance with the medication treatment plan. COVID-19 precautions given including frequent handwashing, social distancing, cleaning and disinfecting, indications for testing, etc. Follow-up: RTC in 6 months for WWE. Follow-up sooner if any problems or concerns. Scribe's Attestation IIgor , am scribing for, and in the presence of, Shelia Quiñonez MD who performed the services described here-in. Igor Hartman, February 08, 2020, 12:02 PM Physician's Attestation I have seen and examined the patient and agreed with the note above Shelia Quiñonez MD 02/08/2020 7:32 PM documented in this encounter Plan of Treatment Date Type Specialty Care Team Description 08/11/2020 Office Visit Obstetrics & Gynecology Young Quiñonez MD [address] [place] [address] [place] [address] [phone] Health Maintenance Due Date Last Done Comments [...] filedocumented in this encounter Visit Diagnoses Diagnosis Insomnia, unspecified type - Primary Anxiety disorder, unspecified type Other depression documented in this encounter Insurance Payer Benefit Plan / Subscriber ID Effective Phone Address T ype Group Dates SAMMY CHRISTIANSON [id number] 2019-Pres [address] BOX Medic aid HEALTHCARE [place]ARE [place] [id number] MANAGED MEDICAID [place], [place] documented as of this encounter
--- OUTSIDE RECORDS SUMMARY | 2020-02-18 17:21 | XMS REPORT | Summary of Care ---
:1995 Author Organization [facility] Address [address] [place] [address] Care Team Providers Name Role Phone Jessica Baker Insurance Hmo Jm Quiñonez MD Primary Care Provider Reason for Visit Reason Comments Refill Request Encounter Details Date Type Department Care Team Description 02/04/2020 Refill [facility] Nephrology- Keyonna Hitchcock MD Refill Request [address] [address] [place] [address] [place] [address] Allergies Active Allergy Reactions [...] Papanicolaou smear negative within last 12 mo [facility] 06/19/2019 Overview: 12/2018 [...] this encounter Miscellaneous Notes Telephone Encounter - Carolyne Aguilera - 02/04/2020 5:09 PM CDTAnnancy Dyson is a 24 year old female The Tramadol still has not shown up at the pharmacy. Please resend the prescription as soon as possible. [facility] [address] [place] [address] elephone Encounter - Za Enriquez RN - 02/04/2020 3:[address] Hitchcock please call in tramadol under Dr. Bill [facility] [address] [place] [address] Called into pharmacy traMADoL (ULTRAM) 50 mg tablet 15 tablet 1 02/04/2020 02/11/2020 -- Sig: Take 1 tablet by mouth every 6 (six) hours as needed for Pain (scale 4-6) for up to 7 days. Indications: acute pain Class: Normal Route: Oral Order: [id number] documented in this encounter Plan of Treatment Date Type Specialty Care Team Description 02/08/2020 Telemedicine Visit Obstetrics & Gynecology Shelia Quiñonez MD [address] [place] [address] [address] [phone] 2020 Office Visit Obstetrics & Gynecology Suzanna Slaughter PA-C [address] [place] [address] [phone] Health Maintenance Due Date Last Done Comments [...] filedocumented in this encounter Visit Diagnoses Diagnosis Kidney stones Calculus of kidney documented in this encounter Additional Health Concerns Infection Onset Date Last Indicated Resolved Time COVID-19 Rule Out 02/03/2020 02/03/2020 02/04/2020 5: 19 AM CDT documented as of this encounter Insurance Payer Benefit Plan / Subscriber ID Effective Phone Address T e Group Dates SAMMY CHRISTIANSON [id number] 2019-Pres [address] BOX Medic aid [place]CARE [place]ARE [place] [id number] MANAGED MEDICAID [place] documented as of this encounter
--- OUTSIDE RECORDS SUMMARY | 2020-02-18 17:21 | XMS REPORT | Summary of Care ---
:1995 Author Organization [facility] Address [address] [place] [address] Care Team Providers Name Role Phone Jessica Baker Insurance Hmo Jm Quiñonez MD Primary Care Provider Reason for Visit Reason Comments Fever Cough Auth/Cert Status Reason Specialty Diagnoses / Referred By Referred To Procedures Contact Contact Emergency Medicine Ad[facility] Em ergency Dept [address] [place] [address] Fax: Encounter Details Date Type Department Care Team Description 02/03/2020 Emergency ADC-Emergency Kaycee Méndez, Suspected Covid-19 Virus Infection (Primary Dx); Department PAC Cough; [address] [place] [address] Dr valdovinos 17[address] [facility] Fever, unspecified fever cause; [place] [address] MARIA LUISA 5200 Viral URI with cough [phone] [place] [address] Allergies Active Allergy Reactions Severity [...] disintegrating (eight) hours as tabletIndications: needed for Nausea Viral URI with cough, and Vomiting Suspected Covid-19 (N/V). Virus Infection benzonatate 200 mg Take 1 capsule by 20 capsule 0 02/03/2020 Active capsuleIndications: mouth 3 (three) Viral URI with cough, times daily as Suspected Covid-19 needed for Cough Virus Infection for up to 20 doses. 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 Coronavirus Disease 2019: Caring for Yourself and Others (Citizen [place])URI, Viral, No Abx (Adult) (Citizen [place])documented in this encounter ED Notes Ileana De León RN - 02/03/2020 4:09 PM CDT24 year old female coming to ER for fever and cough for 4 days. 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 documented in this encounter Miscellaneous Notes ED Nurse Note - Tc Menjivar RN - 02/03/2020 6:14 PM CDTPt given printed and verbal discharge instructions regarding suspected COIVD 19 infection, encouraged hydration, Prescriptions provided Discussed ibuprofen and to take with food to avoid GI distress. Pt verbalized understanding of instructions, pt awake alert oriented, resp reg unlabored, skin w/d, color appropriate for race, moves all ext well,pt encouraged to follow up with pcp Advised to seek medical attention for new/prolonged/worsening of symptoms, Awake, alert oriented, resp reg unlabored, skin w/d, pt leaving amb with steady gait, in no apparent distress, D Nurse Note - Ileana De León RN - 02/03/2020 4:14 PM CDTPatient 99 percent during ambulation documented in this encounter Plan of Treatment Date Type Specialty Care Team Description 02/08/2020 Telemedicine Visit Obstetrics & Gynecology Shelia Quiñonez MD [address] [place] [address] DR. [facility] [address] [place], [place] [address] 2020 Office Visit Obstetrics & Gynecology Suzanna Slaughter PA-C [address] [place] [address] 208 [place] [phone] Name Type Priority Associated Diagnoses Date/Ti me CORONAVIRUS COVID-19 LAB STAT Cough 02/03/2020 4:53 PM TESTING Fever, unspecified fever CDT cause THROAT CULTURE LAB STAT Cough 02/03/2020 4:53 PM Fever, unspecified fever CDT cause Name Type Priority Associated Diagnoses Order S chedule CORONAVIRUS COVID-19 LAB Routine Cough ONCE for 1 Occurrences TESTING Fever, unspecified fever sta rting 02/03/2020 cause until 0 THROAT CULTURE LAB Routine Cough ONCE for 1 Occurrences Fever, unspecified fever sta rting 02/03/2020 cause until 0 Health Maintenance Due Date Last Done Comments [...] Name Priority Date/Time Associated Diagnosis Comme nts RAPID STREP SCREEN STAT 02/03/2020 4:53 PM Cough Results for this FOR GROUP A CDT Fever, unspecified procedure are in fever cause the results section. NOTICE OF PRIVACY Routine 02/03/2020 4:02 PM PRACTICES CDT CONSENT/REFUSAL FOR Routine 02/03/2020 4:02 PM DIAGNOSIS AND CDT TREATMENT documented in this encounter Results RAPID STREP SCREEN FOR GROUP A (02/03/2020 4:53 PM CDT) Pathologist Sig nature Streptococcus pyogenes Negative Negative [facility] (group A) antigen [facility] Specimen Swab - THROAT Performing Organization Address City/State/Zipcode Phone Number [facility] CLIA: [id number] [place] [address] documented in this encounter Visit Diagnoses Diagnosis Suspected Covid-19 Virus Infection - Gabriela sabi Cough Fever, unspecified fever cause Viral URI with cough Acute upper respiratory infections of un specified site documented in this encounter Additional Health Concerns Infection Onset Date Last Indicated Resolved Time COVID-19 Rule Out 02/03/2020 02/03/2020 documented as of this encounter Insurance Payer Benefit Plan / Subscriber ID Effective Phone Address T ype Group Dates SAMMY CHRISTIANSON [id number] 2019-Pres [address] Medic aid HE[place]CARE [place]ARE [place] [id number] MANAGED MEDICAID [place] documented as of this encounter
--- OUTSIDE RECORDS SUMMARY | 2020-02-18 17:21 | XMS REPORT | Summary of Care ---
:1995 Author Organization [facility] Address [address] [place] [address] Care Team Providers Name Role Phone Jessica Baker Insurance Hmo Jm Quiñonez MD Primary Care Provider Encounter Details Date Type Department Care Team Description 02/04/2020 Letter (Out) [facility] Brigitte Acevedo RN [address] [place] [phone] Allergies Active Allergy Reactions Severity Noted Date Comments Metoclopramide Hcl Anxiety 07/12/2019 Patient s ays she gets figity, angry and mean documented as of this encounter (statuses as of 02/04/2020) Medications Medication Sig Dispensed Refills Start Date [...] as of this encounter (statuses as of 02/04/2020) Active Problems Problem Noted Date Anxiety disorder, unspecified type 01/05/2020 Insomnia, unspecified type 01/05/2020 Other depression 08/13/2019 Cervical Papanicolaou smear negative within last 12 mo [facility] 06/19/2019 Overview: 12/2018 NIL pap , see scanned records documented as of this encounter (statuses as of 02/04/2020) Resolved Problems Problem Noted Date Resolved Date [...] as of this encounter (statuses as of 02/04/2020) Immunizations Name Administration Dates Next Due Influenza [...] Obstetrics & Gynecology Shelia Quiñonez MD [address] [place] [address] DR. Son [facility] 15 [phone] 2020 Office Visit Obstetrics & Gynecology Suzanna Slaughter PA-C [address] [place] [phone] Health Maintenance Due Date Last Done [...] T [facility] Group Dates SAMMY CHRISTIANSON [id number] 2019-Pres Al[place] RYAN Medic aid HEALTHCARE - HEALTHCARE ent [id number] MANAGED MEDICAID [place] documented as of this encounter
--- OUTSIDE RECORDS SUMMARY | 2020-02-18 17:22 | XMS REPORT | Summary of Care ---
:1995 Author Organization [address] [address] Care Team Providers Name Role Phone Jessica Baker Insurance Hmo Jm Quiñnoez MD Primary Care Provider Reason for Visit Reason Onset Date Comments Refill Request 02/11/2020 Encounter Details Date Type Department Care Team Description 02/11/2020 Refill [facility] Nephrology- Keyonna Hitchcock MD Refill Request [address] [phone] [place] [address] [place] [address] Allergies Active Allergy Reactions Severity Noted Date Comments Metoclopramide Hcl Anxiety 07/12/2019 Patient s ays she gets figity, angry and mean documented as of this encounter (statuses as of 02/11/2020) Medications Medication Sig Dispensed Refills Start Date End Date Status ALBUTEROL 90 INHALE 2 PUFFS 7 Each 3 05/26/2019 A ctive mcg/actuation BY MOUTH EVERY inhalerIndications: 6 HOURS Asthma affecting NEEDED FOR in second WHEEZING FOR trimester SHORTNESS OF BREATH norgestimate-ethinyl Take 1 tablet 1 Package 2 11/18/2019 Active estradiol 0.25-35 mg-mcg by mouth daily. per tabletIndications: Initiation of OCP (BCP) potassium citrate 10 mEq Take 1 tablet 180 tablet 1 01/14/2020 Active (1,080 mg) SR by mouth 3 tabletIndications: Pain (three) times daily with meals. ibuprofen 600 mg Take 1 tablet 30 tablet 0 02/03/2020 Active tabletIndications: Viral by mouth every URI with cough, Suspected 6 (six) hours COVID-19 virus infection as needed for Pain (scale 4-6). ondansetron (ZOFRAN ODT) Take 1 tablet 10 tablet 0 02/03/2020 Active 4 mg disintegrating by mouth every tabletIndications: Viral 8 (eight) hours URI with cough, Suspected as needed for COVID-19 virus infection Nausea and Vomiting (N/V). benzonatate 200 mg Take 1 capsule 20 capsule 0 02/03/2020 Active capsuleIndications: Viral by mouth 3 URI with cough, Suspected (three) times COVID-19 virus infection daily as needed for Cough for up to 20 doses. tamsulosin (FLOMAX) 0.4 Take 1 capsule 30 capsule 1 02/04/2020 Active mg 24 hr by mouth daily. capsuleIndications: Kidney stones traMADoL (ULTRAM) 50 mg Take 1 tablet 15 tablet 1 02/04/2020 1 Active tabletIndications: acute by mouth every 0 pain 6 (six) hours as needed for Pain (scale 4-6) for up to 7 days. Indications: acute pain traZODone 50 mg Take 1 tablet 30 tablet 5 02/08/2020 Active tabletIndications: by mouth at Insomnia, unspecified bedtime. type FLUoxetine 10 mg Take 1 capsule 30 capsule 5 02/08/2020 Active capsuleIndications: by mouth daily. Anxiety disorder, unspecified type hydroCHLOROthiazide 25 mg Take 0.5 90 tablet 1 02/11/2020 Active tabletIndications: Kidney tablets by stones mouth daily. documented as of this encounter (statuses as of 02/11/2020) Active Problems Problem Noted Date Anxiety disorder, unspecified type 01/05/2020 Insomnia, unspecified type 01/05/2020 Other depression 08/13/2019 Cervical Papanicolaou smear negative within last 12 mo [facility] 06/19/2019 Overview: 12/2018 NIL pap , see scanned records documented as of this encounter (statuses as of 02/11/2020) Resolved Problems Problem Noted Date Resolved Date [...] as of this encounter (statuses as of 02/11/2020) Immunizations Name Administration Dates Next Due Influenza [...] Visit Obstetrics & Gynecology Young Quiñonez MD [address] [place] [address] [place] [address] [phone] Health Maintenance Due Date Last Done Comments [...] Address T e Group Dates SAMMY CHRISTIANSON [id number] 2019-Pres [address] Medic aid [place] [id number] MANAGED MEDICAID [place], [place] documented as of this encounter
--- OUTSIDE RECORDS SUMMARY | 2020-02-18 17:22 | XMS REPORT | Summary of Care ---
:1995 Author Organization [facility] Address [address] [place] [address] Care Team Providers Name Role Phone Jessica Baker Insurance Hmo Jm Quiñonez MD Primary Care Provider Reason for Visit Reason Comments Flank Pain Encounter Details Date Type Department Care Team Description 02/04/2020 Telemedicine Visit [facility] Lopez Hitchcock M D Kidney stones Nephrology- [address] [place] [address] (Primary Dx) [facility] [phone] [place] [address] Drive, [address] [place] [address] Allergies Active Allergy Reactions Severity Noted Date Comments Metoclopramide Hcl Anxiety 07/12/2019 Patient s ays she gets figity, angry and mean documented as of this encounter (statuses as of 02/11/2020) Medications Medication Sig Dispensed Refills Start End Status Date Date ALBUTEROL 90 INHALE 2 7 Each 3 05/26/19 Active mcg/actuation PUFFS BY 20 inhalerIndications: MOUTH EVERY 6 Asthma affecting HOURS in second NEEDED FOR trimester WHEEZING FOR SHORTNESS OF BREATH norgestimate-ethinyl Take 1 tablet 1 Package 2 11/18/19 Active estradiol 0.25-35 by mouth 20 mg-mcg per daily. tabletIndications: Initiation of OCP (BCP) potassium citrate 10 Take 1 tablet 180 tablet 1 01/14/20 Active mEq (1,080 mg) SR by mouth 3 20 tabletIndications: Pain (three) times daily with meals. ibuprofen 600 mg Take 1 tablet 30 tablet 0 02/03/20 Active tabletIndications: by mouth 20 Viral URI with cough, every 6 (six) Suspected COVID-19 hours as virus infection needed for Pain (scale 4-6). ondansetron (ZOFRAN Take 1 tablet 10 tablet 0 02/03/20 Active ODT) 4 mg by mouth 20 disintegrating every 8 tabletIndications: (eight) hours Viral URI with cough, as needed for Suspected COVID-19 Nausea and virus infection Vomiting (N/V). benzonatate 200 mg Take 1 20 capsule 0 02/03/20 Active capsuleIndications: capsule by 20 Viral URI with cough, mouth 3 Suspected COVID-19 (three) times virus infection daily as needed for Cough for up to 20 doses. tamsulosin (FLOMAX) 0.4 Take 1 30 capsule 1 02/04/20 Active mg 24 hr capsule by 20 capsuleIndications: mouth daily. Kidney stones traMADoL (ULTRAM) 50 mg Take 1 tablet 15 tablet 1 02/04/20 Active tabletIndications: by mouth 20 020 acute pain every 6 (six) hours as needed for Pain (scale 4-6) for up to 7 days. Indications: acute pain hydroCHLOROthiazide 25 Take 0.5 90 tablet 1 02/11/20 Active mg tabletIndications: tablets by 20 Kidney stones mouth daily. FLUoxetine 10 mg Take 1 30 capsule 1 01/05/20 Di scontinued capsuleIndications: capsule by 20 020 (Reorder) Anxiety disorder, mouth daily. unspecified type traZODone 50 mg Take 1 tablet 30 tablet 1 01/05/20 Discontinued tabletIndications: by mouth at 20 020 (Reorder) Insomnia, unspecified bedtime. type documented as of this encounter (statuses [...] on filedocumented in this encounter Progress Notes Lopez Hitchcock MD - 02/04/2020 1:30 PM CDT TELEHEALTH NOTE Verbal consent obtained from Patient: Natanael Dyson due to the COVID-19 pandemic for telehealthservices provided below. Communication with patient was conducted via Video Call. Location of Patient: Home Location of Provider: Office Date of Service: 01/14/2020 Chief Complaint: Bilateral flank pain HPI: Natanael Dyson is a 24 year old female with history of renal stones and multiple ED visits,A ct scan abdomen and Pelvis was performed which revealed "Nonobstructing nephrolithiasis measuring up to 4 mm in the left kidney and 3 mm in the right kidney". She was prescribed antibiotics and analgesics for pain control but her pain has persisted, On her last visit she had bilateral flank pain but now her pain is limited to right flank only radiating anteriorly, she describes it moderate in intensity, but can get worse There has not been any fevers or [...] Current Outpatient Medications Medication Sig Dispense Refill tamsulosin (FLOMAX) 0.4 mg 24 hr capsule Take 1 capsule by mouth daily. 30 capsule 1 traMADoL (ULTRAM) 50 mg tablet Take 1 tablet by mouth every 6 (six) hours as needed for Pain (scale 4-6) for up to 7 days. Indications: acute pain 15 tablet 1 benzonatate 200 mg capsule Take 1 capsule by mouth 3 (three) times daily as needed for Cough forup to 20 doses. 20 capsule 0 ibuprofen 600 mg tablet Take 1 tablet by mouth every 6 (six) hours as needed for Pain (scale 4-6). 30 tablet 0 ondansetron (ZOFRAN ODT) 4 mg disintegrating tablet Take 1 tablet by mouth every 8 (eight) hoursas needed for Nausea and Vomiting (N/V). 10 tablet 0 potassium citrate 10 mEq (1,080 mg) SR [...] lower back when she presses. ASSESSMENT/ PLAN Ntaanael Dyson is a 24 year old female with PMH as above presenting with: 1. Right lower flank Pain and Dysuria Her last CT scan was reassuring. We have advised her to drink plenty of water Increase fruit and vegetable intake and limit animal protein intake -Continue potassium citrate 10 mEq (1,080 mg) SR tablet; Take 1 tablet by mouth 3 (three) times daily with meals. - Urine Supersaturation Profile revealed low UOP , acidic PH and high Ca Discussed Urine super sat study with the patient Added Flomax due to increased right sided pain and concern of stone trying to pass Added Ultram for pain control Also Add HCTZ 2. Kidney stones As above After visit summary (AVS ) documentation will be available through [employer] for this encounter. A total of 15 minutes was spent on the Video Call, chart review, and coordination of care with specialists. Lopez Hitchcock MD documented in this encounter Plan of Treatment Date Type Specialty Care Team Description 08/11/2020 Office Visit Obstetrics & Gynecology Young Quiñonez MD [address] [place] [address] [place] [address] [phone] Health Maintenance Due Date Last Done Comments [...] this encounter Visit Diagnoses Diagnosis Kidney stones - Primary Calculus of kidney documented in this encounter Insurance Payer Benefit Plan / Subscriber ID Effective Phone Address T ype Group Dates SAMMY CHRISTIANSON [id number] 2019-Pres P O BOX Medic aid [place] [id number] MANAGED MEDICAID [place], [place] documented as of this encounter
--- OUTSIDE RECORDS SUMMARY | 2020-02-18 17:22 | XMS REPORT | Summary of Care ---
:1995 Author Organization [facility] Address [address] [place] [address] Care Team Providers Name Role Phone Jessica Baker Insurance Hmo Jm Quiñonez MD Primary Care Provider Encounter Details Date Type Department Care Team Description 02/05/[address] Patient Secure [facility] [address], [facility] 6th Floor [phone] [place] [address] Allergies Active Allergy Reactions Severity Noted Date Comments Metoclopramide Hcl Anxiety 07/12/2019 Patient s ays she gets figity, angry and mean documented as of this encounter (statuses as of 02/12/2020) Medications Medication Sig Dispensed Refills Start End [...] by mouth 0 capsuleIndications: daily. Kidney stones FLUoxetine 10 mg Take 1 capsule 30 capsule 1 0 Discontinued capsuleIndications: by mouth 0 20 (Reorder) Anxiety disorder, daily. unspecified type traZODone 50 mg Take 1 tablet 30 tablet 1 02/08/20 Discontinued tabletIndications: by mouth at 0 20 (Reorder) Insomnia, bedtime. unspecified type traMADoL (ULTRAM) Take 1 tablet 15 tablet 1 02/11/20 50 mg by mouth every 0 20 tabletIndications: 6 (six) hours acute pain as needed for Pain (scale 4-6) for up to 7 days. Indications: acute pain documented as of this encounter (statuses as of 02/12/2020) Active Problems Problem Noted Date Anxiety disorder, unspecified type 01/05/2020 Insomnia, unspecified type 01/05/2020 Other depression 08/13/2019 Cervical Papanicolaou smear negative within last 12 mo [facility] 06/19/2019 Overview: 12/2018 NIL pap , see scanned records documented as of this encounter (statuses as of 02/12/2020) Resolved Problems Problem Noted Date Resolved Date [...] as of this encounter (statuses as of 02/12/2020) Immunizations Name Administration Dates Next Due Influenza [...] Visit Obstetrics & Gynecology Young Quiñonez MD [address] [place] [address] [address] [place], [place] [address] [phone] Health Maintenance Due Date Last Done Comments [...] Address T ype Group Dates SAMMY CHRISTIANSON [id number] 2019-Pres P O BOX Medic aid [place] [id number] MANAGED MEDICAID [place], [place] documented as of this encounter
== END 2020-02-17 07:57 | disposition home or self-care (01) ==
LOC: ER 04:39
DX: R10.9 Unspecified abdominal pain (principal); R11.2 Nausea with vomiting, unspecified; Z87.442 Personal history of urinary calculi; Z88.8 Allergy status to other drugs, medicaments and biological substances
CPT/HCPCS: 85025; 80048; 36415; 84703; 80076; 81003; 83690; 74177; 99284; Q9967; J2550 ×2; J7030

== ENCOUNTER 2020-02-28 18:44 | Emergency (ER) | payer MEDICAID ==
--- OUTSIDE RECORDS SUMMARY | 2020-02-28 18:47 | XMS REPORT | Summary of Care ---
:[address] [facility] Address [address] [place] [address] Care Team Providers Name Role Phone Jessica Baker Insurance Hmo Jm Quiñonez MD Primary Care Provider Encounter Details Date Type Department Care Team Description 10/30/2019 [facility] Maurice Flores [place] [address] [place] [address] [place] [address] Allergies Active Allergy Reactions Severity Noted [...] Visit Obstetrics & Gynecology Suzanna Slaughter PA-C [address] [place] [address] [phone] Health Maintenance Due Date Last Done [...] / Subscriber ID Effective Phone Address T [facility] Group Dates SAMMY CHRISTIANSON xxxxxxxxx 2019-Pres [address] O BOX Medic aid [place] [id number] MANAGED MEDICAID [place], [place] documented as of this encounter
--- OUTSIDE RECORDS SUMMARY | 2020-02-28 18:47 | XMS REPORT | Continuity of Care Document ---
:1995 Author Organization [facility] t Address [address] [place] [address] Care Team Providers Name Role Phone Coretta FELIX Attending Clinician Problems This patient has no known problems. Allergies, Adverse Reactions, Alerts This patient has no known allergies or adverse reactions. Medications This patient has no known medications. Procedures This patient has no known procedures. Encounters Start End Encounter Admission Attending Care Care Encounter Source Date/Time Date/Time Type Type Clinicians Facility Department ID 2020-02-25 2020-02-25 Telemedici Anila Hitchcockr [facility] [id number] 13:30:06 14:00:06 ne Visit Y HEALTH [id number] [place] [id number] 2020 2020 Patient CorettaHeavenLopez [facility] [id number] 00:00:00 00:00:00 Secure Msg Y HEALTH [id number] [id number] 2020 2020 Patient CorettaHeavenLopez [facility] [id number] 00:00:00 00:00:00 Secure Msg Y HEALTH [id number]686 [id number] 2020 2020 Patient CorettaHeavenLopez [facility] [id number] 00:00:00 00:00:00 Secure Msg Y HEALTH [id number] CLINICS [id number] [facility] 2020 2020 Refill Lopez Hitchcock [facility] [id number] 00:00:00 00:00:00 MULTISPEC [id number] IAL[facility] [id number] GOFF [phone] [place] [address] [facility] 2020 2020 Telephone [facility] [address]840.114 [id number] 00:00:00 00:00:00 Y HEALTH [id number] [facility] [id number] [facility] 2020 2020 [facility]phone [facility] [id number] 00:00:00 00:00:00 Y HEALTH [id number] [facility] [id number] [facility] 2020-02-17 2020-02-17 [facility] [id number] 00:00:00 00:00:00 Secure Msg MULTISPEC [id number] [facility] [id number] GOFF [id number] [place] [address] [facility] Results This patient has no known results.
--- OUTSIDE RECORDS SUMMARY | 2020-02-28 18:47 | XMS REPORT | Summary of Care ---
:1995 Author Organization [facility] Address [address] [place] [address] Care Team Providers Name Role Phone Jessica Baker Insurance Hmo Jm Quiñonez MD Primary Care Provider Encounter Details Date Type Department Care Team Description 12/26/2019 Orders Only [facility] Doctor Unassigned, No [address] [facility] Name [place] [id number] [address] [place] [address] Allergies Active Allergy Reactions Severity Noted Date [...] smear negative within last 12 mo [facility] 06/19/2019 Overview: 12/2018 NIL pap [...] Visit Obstetrics & Gynecology Suzanna Slaughter PA-C [address] [place] [address] [phone] Health Maintenance Due Date Last Done [...] / Subscriber ID Effective Phone Address T [facility] Group Dates SAMMY CHRISTIANSON [id number] 2019-Pres P O BOX Medic aid [place] [id number] MANAGED MEDICAID [place] documented as of this encounter
--- OUTSIDE RECORDS SUMMARY | 2020-02-28 18:48 | XMS REPORT | Summary of Care ---
:1995 Author Organization [facility] - [facility] Address [address] [place] [address] Care Team Providers Name Role Phone Jessica Baker Insurance Hmo Jm Quiñonez MD Primary Care Provider Reason for Referral MRI/CAT Scan (STAT) Status Reason Specialty Diagnoses / Referred By Referred To Procedures Contact Contact New Request Diagnostic Diagnoses Flank pain Maggie [place] Radiology Procedures CT Abdomen/Pelvis W/O Contrast J, DO [address] [place] [address] Reason for Visit Reason Comments Flank Pain right Auth/Cert Status Reason Specialty Diagnoses / Referred By Referred To Procedures Contact Contact Emergency Medicine Ad[facility] Em ergency Dept [address] [place] [address] Fax: Encounter Details Date Type Department Care Team Description 12/26/2019 Emergency ADC-Emergency Maggie Hamilton, Flank p ain (Primary Department DO Dx) [address] [place] [address] [phone] Allergies Active Allergy Reactions Severity Noted Date [...] Body Mass Index 23.62 07/18/2019 1:13 AM HR ASSOCIATE documented in this encounter Discharge Instructions Maggie Salazar DO - 12/26/2019DIAGNOSIS 1. Pyelonephritis NO LIFE-THREATENING FINDINGS ON TODAY'S EXAM. PROCEDURES IN THE ER TODAY: Blood work Urine test CT abdomen/pelvis MEDICATIONS ADMINISTERED IN THE ER TODAY: Zofran Morphine Toradol IV fluids Rocephin YOUR PRESCRIPTIONS AND [id number] MEDICATION RECOMMENDATIONS: Vantin by mouth twice a day. Please complete your entire course of antibiotics. Tylenol with codeine by mouth every 4 hours as needed for pain. Do not drive while taking this medication. SPECIAL CARE INSTRUCTIONS: None FOLLOW-UP RECOMMENDATIONS: RECOMMEND FOLLOW-UP WITH A PRIMARY CARE PROVIDER OR SPECIALIST IN 2-5 DAYS, ESPECIALLY IF NO IMPROVEMENT IN SYMPTOMS. TO FOLLOW-UP WITHIN THE [facility], TRY THESE OPTIONS (CLINIC APPOINTMENTS AVAILABLE ON [id number]-SRWS BASIS): 1. SCHEDULE AN APPOINTMENT ONLINE AT [email or web address] 2. OR CALL THE [facility] ACCESS CENTER AT OR 3. OR CALL YOUR [facility] PHYSICIAN'S OFFICE DIRECTLY IF YOU ARE ALREADY AN ESTABLISHED [facility] PATIENT. OR, YOU MAY FOLLOW-UP WITH A PROVIDER OF YOUR CHOICE, SUCH : 1. A PHYSICIAN OF YOUR CHOICE 2. [facility], . LOCATIONS IN [facility] 3. [facility], [address] [place], [place]; [phone] RETURN TO ER FOR WORSENING OF SYMPTOMS. AttachmentsThe following attachments cannot be sent through Care Everywhere. Abdominal Pain, Adult (Cameroonian)Pyelonephritis, Discharge Instructions for (Cameroonian)documented in this encounter ED Notes Yamini Brito RN - 12/26/2019 9:22 AM CDTPatient c/o right flank pain x2 weeks and is becoming worse; states she now is having trouble voiding. LMP per patient was the "beginning of this month". aggie Hamilton DO - 12/26/2019 9:16 AM CDT [facility] Emergency Department Note Patient Name: Natanael Dyson [...] N/A 07/21/2019 Surgeon: Shelia Quiñonez MD; Location: [facility] Labor and Delivery OR Location TUBAL LIGATION N/A 07/21/2019 Surgeon: Shelia Quiñonez MD; Location: [facility] Labor and Delivery OR Location Review of [...] C Line present POCT PREG LOT # [id number] POCT PREG TEST DATE Urinalysis Collection Time: [...] Visit Obstetrics & Gynecology Suzanna Slaughter PA-C [address] [place] [address] [phone] Name Type Priority Associated Diagnoses Order [...] with the above report. Performing Organization Address [facility] Phone Number PACS/VR/DOSE Urinalysis (12/26/2019 9:56 AM CDT) Pathologist Sig nature APPEARANCE Cloudy (A) Clear [facility] COLOR Yellow Yellow [facility] PH 7.0 4.8 - 8.0 [facility] SP GRAVITY 1.021 1.003 - 1.030 [facility] GLU U QUAL Normal Normal [facility] BLOOD Negative Negative [facility] KETONES Negative Negative [facility] PROTEIN Negative Negative [facility] UROBILIN Normal Normal [facility] BILIRUBIN Negative Negative [facility] NITRITE Negative Negative [facility] LEUK ANJELICA 75/uL (A) Negative [facility] RBC/HPF 2 0 - 3 HPF [facility] WBC/HPF 4 0 - 5 HPF [facility] BACTERIA Few (A) Negative [facility] MUCOUS Slight (A) Negative LPF [facility] SQ EPITH 29 HPF [facility] Specimen Urine - URINE, CLEAN CATCH Performing Organization Address [facility] Phone Number [facility] CLIA: [id number] [place] [address] POCT Test (12/26/2019 9:55 AM CDT) Pathologist Sig nature POCT PREG negative On board controls acceptable present with C Line POCT PREG LOT # [id number] POCT PREG TEST DATE Specimen Urine - URINE, CLEAN CATCH Test, Serum (12/26/2019 9:29 AM CDT) Pathologist [facility] PREG SERUM Negative [facility] Specimen Blood - VENOUS Narrative Performed At Less than 10 IU/L. If low titer or ectopic [facility] is suspected, resubmit specimen in 48-72 hours. Performing Organization Address City/State/Zipcode Phone Number [facility] CLIA: [id number] [place] [address] Basic Metabolic Panel (NA, K, CL, CO2, GLUCOSE, BUN, CREATININE, CA) (12/26/2019 9:29 AM CDT) [facility] NA 136 135 - 145 [facility] mmol/L [facility] K 3.9 3.5 - 5.0 [facility] mmol/L [facility] CL 106 98 - 108 mmol/L [facility] CO2 TOTAL 22 (L) 23 - 31 mmol/L [facility] AGAP 8 2 - 16 [facility] BUN 13 7 - 23 mg/dL [facility] GLUCOSE 104 70 - 110 mg/dL [facility] CREATININE 0.71 0.50 - 1.04 [facility] mg/dL [facility] CALCIUM 9.2 8.6 - 10.6 [facility] mg/dL [facility] eGFR Calculation 101.1 mL/min/1.73m2 [facility] (Non-) [facility] Y eGFR Calculation 122.6 mL/min/1.73m2 [facility] () [facility] Specimen Blood - VENOUS Narrative Performed At Association of Glomerular Filtration Rate (GFR) [facility] and Staging of Kidney Disease* + [...] tests). Performing Organization Address City/State/Zipcode Phone Number [facility] CLIA: [id number] [place] [address] CBC with Differential (12/26/2019 9:29 AM CDT) Pathologist Sig nature WBC 5.16 4.30 - 11.10 [facility] 10*3/L [facility] RBC 4.67 3.93 - 5.25 [facility] 10*6/L [facility] HGB 13.4 11.6 - 15.0 g/dL [facility] HCT 40.3 35.7 - 45.2 % [facility] MCV 86.3 80.6 - 95.5 fL [facility] MCH 28.7 25.9 - 32.8 pg [facility] MCHC 33.3 31.6 - 35.1 g/dL [facility] RDW-SD 44.3 39.0 - 49.9 fL [facility] RDW-CV 14.0 12.0 - 15.5 % [facility] PLT 346 166 - 358 [facility] 10*3/L [facility] MPV 10.0 9.5 - 12.9 fL [facility] NRBC/100 WBC 0.0 0.0 - 10.0 /100 [facility] WBCs [facility] NRBC x10^3 <0.01 10*3/L [facility] GRAN MAT (NEUT) % 40.8 % [facility] IMM GRAN % 0.40 % [facility] LYMPH % 44.4 % [facility] MONO % 6.6 % [facility] EOS % 7.0 % [facility] BASO % 0.8 % [facility] GRAN MAT x10^3(ANC) 2.11 1.88 - 7.09 [facility] 10*3/uL [facility] IMM GRAN x10^3 <0.03 0.00 - 0.06 [facility] 10*3/uL [facility] LYMPH x10^3 2.29 1.32 - 3.29 [facility] 10*3/uL [facility] MONO x10^3 0.34 0.33 - 0.92 [facility] 10*3/uL [facility] EOS x10^3 0.36 0.03 - 0.39 [facility] 10*3/uL [facility] BASO x10^3 0.04 0.01 - 0.07 [place] [address]/[facility] LABORATORY Specimen Blood - VENOUS Performing Organization Address City/State/Zipcode Phone Number [facility] CLIA: [id number] [place] [address] documented [...] ONCE, 1 dose, 12/26/19 at 0930, [place], maintenance team member approving Restricted medication: MAGGIE HAMILTON morpHINE [...] Address T ype Group Dates SAMMY BAZANINA [id number] 2019-Pres P O BOX Medic aid [facility] [id number] MANAGED MEDICAID [place], [place] documented as of this encounter
--- OUTSIDE RECORDS SUMMARY | 2020-02-28 18:48 | XMS REPORT | Summary of Care ---
:1995 Author Organization [facility] Address [address] [place] [address] Care Team Providers Name Role Phone BakerJessica Insurance Hmo Jm Quiñonez MD Primary Care Provider Reason for Referral (Routine) Status Reason Specialty Diagnoses / Referred By Referred To Procedures Contact Contact New Request Psychiatry Diagnoses Anxiety disorder, unspecified type Insomnia, unspecified type Depression, unspecified depression type Shelia Quiñonez MD Procedures CONSULT/REFERRAL PSYCHIATRY ADULT 146 [facility] [address] [place] [address] Reason for Visit Reason Comments Anxiety Encounter Details Date Type Department Care Team Description 01/05/2020 Telemedicine Visit [facility] Women's Shelia Quiñonez MD Anxiety disorder, unspecified type (Prim robert Dx); [facility]- 146 [facility] Insomnia, unspecified type; Maurice CORNELL Depression, unspecified depression type 146 [facility] [address], [address] [place] [address] [phone] Allergies Active Allergy Reactions Severity Noted Date [...] Therapy #3) 300-30 mg every 4 comple rentaa) tabletIndications: (four) hours acute pain as needed for Pain (scale 1-3). 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 Advise it may take at least 6 wks of treatment before seeing improvement in mood. Patient understands and desires treatment. XYZE discussed and patient will schedule an appointment with them for counseling.Patient is aware that she will be referred to psych for further management. Follow-up in 4 wks for EPDS/anxiety. After visit summary (AVS ) documentation will be available through [employer] for this encounter. A total of 25 minutes was spent on the video call and chart review. Shelia Quiñonez MD 01/05/2020 5:44 PM documented in this encounter Plan of Treatment Date Type Specialty Care Team Description 01/14/2020 Office Visit Nephrology Lopez Hitchcock MD [address] [place] [address] [phone] 2020 Office Visit Obstetrics & Gynecology Suzanna Slaughter PA-C [address] [place] [address] [phone] Health Maintenance Due Date Last [...] Address T ype Group Dates SAMMY CHRISTIANSON [id number] 2019-Pres P O BOX Medic aid [place] [id number] MANAGED MEDICAID [place] documented as of this encounter
--- OUTSIDE RECORDS SUMMARY | 2020-02-28 18:48 | XMS REPORT | Summary of Care ---
:1995 Author Organization [facility] Address [address] [place] [address] Care Team Providers Name Role Phone Jessica Baker Insurance Hmo Jm Quiñonez MD Primary Care Provider Reason for Visit Reason Comments Assessment Encounter Details Date Type Department Care Team Description 01/05/2020 Telephone [facility] Women's Tamy Slaughter PA-C Assessment Healthcare- [address] 146 [facility] [address] [place] [address] [place] [address] [phone] Allergies Active Allergy Reactions Severity Noted Date [...] advised that patient should be seen at [facility] since that is where the medication was prescribed. Patient stated that she called [facility] and they blew her off and told her they did not have anything available. RN offered patient a telehealth appointment for today, patient accepted. Call transferred to [facility] for appointment. Telehealth Appointment scheduled for today [...] Obstetrics & Gynecology Shelia Quiñonez MD Arrived [address] [place] [address] 775 15 [phone] 2020 Office Visit Obstetrics & Gynecology Suzanna Slaughter PA-C [address] [place] [address] [phone] Health Maintenance Due Date Last Done Comments [...] Address T e Group Dates SAMMY CHRISTIANSON [id number] 2019-Pres Alisson Manzano BOX Medic aid HEALTHCARE - HEALTHCARE ent [id number] MANAGED MEDICAID [place] documented as of this encounter
--- OUTSIDE RECORDS SUMMARY | 2020-02-28 18:48 | XMS REPORT | Summary of Care ---
:[address] [facility] Address [address] [place] [address] Care Team Providers Name Role Phone Jessica Baker Insurance Hmo Jm Quiñonez MD Primary Care Provider Encounter Details Date Type Department Care Team Description 01/13/2020 Patient Secure [facility] Lopez Hitchcock M D Nephrology- [address], [address] 2 [address] [phone] [place] [address] Allergies Active Allergy Reactions Severity [...] Visit Obstetrics & Gynecology Shelia Quiñonez MD [address] [place] [address] 775 15 2020 Office Visit Obstetrics & Gynecology Suzanna Slaughter PA-C [address] [place] [phone] Health Maintenance Due Date Last Done Comments [...] / Subscriber ID Effective Phone Address T [facility] Group Dates SAMMY CHRISTIANSON [id number] 2019-Pres P O BOX Medic aid HEALTHCARE - HEALTHCARE [place] [id number] MANAGED MEDICAID [place] documented as of this encounter
--- OUTSIDE RECORDS SUMMARY | 2020-02-28 18:49 | XMS REPORT | Summary of Care ---
:1995 Author Organization [facility] [place] Address [address] [place] [address] Care Team Providers Name Role Phone Jessica Baker Insurance Hmo Jm Quiñonez MD Primary Care Provider Encounter Details Date Type Department Care Team Description 01/13/2020 Patient Secure [facility] Lopez Hitchcock M D Nephrology- [address], [address] 2 [address]th Floor [phone] [place] [address] Allergies Active Allergy Reactions Severity [...] negative within last 12 mo [facility] 06/19/2019 Overview: 12/2018 NIL pap , [...] Za Enriquez RN - 01/15/2020 11:11 AM [phone] (home) Left message to call back documented in this encounter Plan of Treatment Date Type Specialty Care Team Description 02/08/2020 Telemedicine Visit Obstetrics & Gynecology Shelia Quiñonez MD [address] [place] [address] DR. [place], [place] 7[address] [phone] 2020 Office Visit Obstetrics & Gynecology Suzanna Slaughter PA-C [address] [place] [address] [phone] Health Maintenance Due Date Last Done Comments [...] Address T e Group Dates SAMMY CHRISTIANSON [id number] 2019-Pres P O BOX Medic aid HEALTHCARE - HEALTHCARE [place] [id number] MANAGED MEDICAID [place] documented as of this encounter
--- OUTSIDE RECORDS SUMMARY | 2020-02-28 18:49 | XMS REPORT | Summary of Care ---
:1995 Author Organization [facility] Address [address] [place] [address] Care Team Providers Name Role Phone Jessica Baker Insurance Hmo Jm Quiñonez MD Primary Care Provider Encounter Details Date Type Department Care Team Description 01/13/2020 Patient Secure [facility] Lopez Hitchcock M D Nephrology- [address], [address] 2 [address] Floor [phone] [place] [address] Allergies Active Allergy Reactions Severity [...] Za Enriquez RN - 01/15/2020 11:11 AM [phone] (home) Left message to call back documented in this encounter Plan of Treatment Date Type Specialty Care Team Description 01/21/2020 Hand Bender Visit Phlebotomy 2, Adc Lab 02/08/2020 Telemedicine Visit Obstetrics & Gynecology Shelia Quiñonez MD [address] [place] [address] DR. [address] [place] [phone] 2020 Office Visit Obstetrics & Gynecology Suzanna Slaughter PA-C [address] [place] [phone] Health Maintenance Due Date Last Done [...] / Subscriber ID Effective Phone Address T [facility] Group Dates SAMMY CHRISTIANSON [id number] 2019-Pres P O BOX Medic aid HEALTHCARE - [place]ALTHCARE [place] [id number] MANAGED MEDICAID [place] documented as of this encounter
--- OUTSIDE RECORDS SUMMARY | 2020-02-28 18:49 | XMS REPORT | Summary of Care ---
:1995 Author Organization [facility] Address [address] [place] [address] Care Team Providers Name Role Phone Jessica Baker Insurance Hmo Jm Quiñonez MD Primary Care Provider Encounter Details Date Type Department Care Team Description 01/13/[address] [facility] Lopez Hitchcock M D Nephrology- [address], [address] 2 [address] Floor [phone] [place] [address] Allergies Active Allergy Reactions Severity [...] Enriquez RN - 01/15/2020 11:11 AM CDT [phone] (home) Left message to call back documented in this encounter Plan of Treatment Date Type Specialty Care Team Description 02/08/2020 Telemedicine Visit Obstetrics & Gynecology Shelia Quiñonez MD [address] [place] [address] 775 15 [phone] 2020 Office Visit Obstetrics & Gynecology Suzanna Slaughter PA-C [address] [place] [phone] Health Maintenance Due Date Last Done Comments [...] Address T ype Group Dates SAMMY CHRISTIANSON [id number] 2019-Pres P O BOX Medic aid HEALTHCARE - [place]ARE [place] [id number] MANAGED MEDICAID [place] documented as of this encounter
--- OUTSIDE RECORDS SUMMARY | 2020-02-28 18:49 | XMS REPORT | Summary of Care ---
:1995 Author Organization [facility] Address [address] [place] [address] Care Team Providers Name Role Phone Jessica Baker Insurance Hmo Jm Quiñonez MD Primary Care Provider Reason for Visit Reason Comments LAB WORK Auth/Cert Status Reason Specialty Diagnoses / Procedures Referred By Jessica ontact Referred To Contact Phlebotomy Diagnoses LAB DROP URINE Adc Pob Lab Draw Professional O ffice Building [address] [place] [address] , [address] [place] [address] Phone: Fax: Encounter Details Date Type Department Care Team Description 01/23/2020 Cod Clerk Visit [facility] Lopez Hitchcock MD [address] [place] [phone] Pain; Professional Office Pob, Adc Lab Main Kidney stones Building Phlebotomy Lab Professional Office Building [address] [place] [address] , [address] [place] [address] Allergies Active Allergy Reactions Severity Noted [...] accordingly. The following specimens were sent to [facility] laboratoriesper lab order on today: 24 hour urine 1 Random urine Stool Swab Other documented in this encounter Plan of Treatment Date Type Specialty Care Team Description 02/08/2020 Telemedicine Visit Obstetrics & Gynecology Shelia Quiñonez MD [address] [place] [address] DRPilar [address] [place], [place] [address] 2020 Office Visit Obstetrics & Gynecology Suzanna Slaughter PA-C [address] [place] [address] Name Type Priority Associated Diagnoses [...] Address T ype Group Dates CHRISTIANSON CHRISTIANSON [id number] 2019-Pres P O BOX Medic aid HEALTHCARE - HEALTHCARE ent [id number] MANAGED MEDICAID [place] documented as of this encounter
--- OUTSIDE RECORDS SUMMARY | 2020-02-28 18:49 | XMS REPORT | Summary of Care ---
:1995 Author Organization [facility] - Health Address [address] [place] [address] Care Team Providers Name Role Phone Jessica Baker Insurance Hmo Jm Quiñonez MD Primary Care Provider Encounter Details Date Type Department Care Team Description 01/23/2020 Orders Only [facility] Doctor Unassigned, No 301 [facility] Name [place] [phone] [place] [phone] Allergies Active Allergy Reactions Severity Noted Date [...] Date Type Specialty Care Team Description 01/23/2020 Medical Case Manager Visit Phlebotomy [place], Adc Lab Main 02/08/2020 Telemedicine Visit Obstetrics & Gynecology Shelia Quiñonez MD [address] [place] [address] 775 15 [phone] 2020 Office Visit Obstetrics & Gynecology Suzanna Slaughter PA-C [address] [place] [address] [phone] Health Maintenance Due Date Last Done Comments [...] / Subscriber ID Effective Phone Address T [facility] Group Dates SAMMY CHRISTIANSON [id number] 2019-Pres P O BOX Medic aid HEALTHCARE - HEALTHCARE ent [id number] MANAGED MEDICAID [place] documented as of this encounter
--- OUTSIDE RECORDS SUMMARY | 2020-02-28 18:49 | XMS REPORT | Summary of Care ---
:[address] [facility] Address [address] [place] [address] Care Team Providers Name Role Phone Jessica Baker Insurance Hmo Jm Quiñonez MD Primary Care Provider Reason for Visit Reason Comments Flank Pain Encounter Details Date Type Department Care Team Description 01/14/2020 Telemedicine Visit [facility] Lopez Hitchcock M D Pain (Primary Dx); Nephrology- [address] [place] [address] Kidney stones [facility] [address] [place] [address] Drive, [address]th [place] [address] Allergies Active Allergy Reactions Severity [...] (AVS ) documentation will be available through [employer] for this encounter. A total of 15 minutes was spent on the Video Call, chart review, and coordination of care with specialists. Lopez Hitchcock MD documented in this encounter Plan of Treatment Date Type Specialty Care Team Description 02/08/2020 Telemedicine Visit Obstetrics & Gynecology Shelia Quiñonez MD [address] [place] [address] 775 15 2020 Office Visit Obstetrics & Gynecology Suzanna Slaughter PA-C [address] [place] [phone] Name Type Priority Associated Diagnoses Order [...] Address T e Group Dates SAMMY CHRISTIANSON [id number] 2019-Pres Alisson RYAN Medic aid HEALTHCARE - HEALTHCARE ent [id number] MANAGED MEDICAID [place] documented as of this encounter
--- OUTSIDE RECORDS SUMMARY | 2020-02-28 18:49 | XMS REPORT | Summary of Care ---
:1995 Author Organization [facility] - [facility] Address [address] [place] [address] Care Team Providers Name Role Phone Jessica Baker Insurance Hmo Jm Quiñonez MD Primary Care Provider Reason for Visit Reason Comments Results lab Encounter Details Date Type Department Care Team Description 01/25/2020 Telephone [facility] Nephrology- Keyonna Hitchcock MD Results (lab) [address] [address] [place] [address], [address] [place] [address] [place] [address] Allergies Active Allergy Reactions [...] amount to 1480 was in the specimen [phone] (home) Patient reports just a bit shy of line Reported results to Lab elephone Encounter - Skylar Ham Kassandra - 01/26/2020 3:20 PM CDTAngel Nelia Dyson is a 24 year old female is calling for lab results. Please call patient [phone]. Thank you. elephone Encounter - Remedios Nettles - 01/25/2020 2:09 PM CDTPt called requesting her lab results done on 01/22. documented in this encounter Plan of Treatment Date Type Specialty Care Team Description 02/08/2020 Telemedicine Visit Obstetrics & Gynecology Shelia Quiñonez MD [address] [place] [address] DRPilar [facility] [address] [place], [place] [address] 2020 Office Visit Obstetrics & Gynecology Suzanna Slaughter PA-C [address] [place] [phone] Health Maintenance Due Date Last Done Comments [...] T ype Group Dates CHRISTIANSONMARIA LUZ CHRISTIANSON [id number] 2019-Pres P O BOX Medic aid [place]CARE [place]ARE [place] [id number] MANAGED MEDICAID [place] documented as of this encounter
--- OUTSIDE RECORDS SUMMARY | 2020-02-28 18:50 | XMS REPORT | Summary of Care ---
:1995 Author Organization [facility] Address [address] [place] [address] Care Team Providers Name Role Phone Jessica Baker Insurance Hmo Jm Quiñonez MD Primary Care Provider Encounter Details Date Type Department Care Team Description 02/05/2020 Patient Secure [facility] [address], [address] [place] [address] Floor [phone] [place] [address] Allergies Active Allergy Reactions Severity [...] Visit Obstetrics & Gynecology Shelia Quiñonez MD [address] [place] [address] DRPilar Jae [address] [place], [place] [address] 2020 Office Visit Obstetrics & Gynecology Suzanna Slaughter PA-C 146 [facility] [address] [place] [phone] Health Maintenance Due Date Last Done Comments [...] Address T e Group Dates SAMMY CHRISTIANSON [id number] 2019-Pres P O BOX Medic aid HEALTHCARE - HEALTHCARE [place] [id number] MANAGED MED[place]ID [place] documented as of this encounter
--- OUTSIDE RECORDS SUMMARY | 2020-02-28 18:50 | XMS REPORT | Summary of Care ---
:1995 Author Organization [facility] - [facility] Address [address] [place] [address] Care Team Providers Name Role Phone Jessica Baker Insurance Hmo Jm Quiñonez MD Primary Care Provider Encounter Details Date Type Department Care Team Description 02/04/2020 Letter (Out) [facility] Brigitte Acevedo RN [address] [place] [address] Allergies Active Allergy Reactions Severity [...] Visit Obstetrics & Gynecology Shelia Quiñonez MD [address] [place] [address] DR. Son [place], [facility]5 15 [phone] 2020 Office Visit Obstetrics & Gynecology Suzanna Slaughter PA-C [address] [place] [phone] Health Maintenance Due Date Last Done [...] / Subscriber ID Effective Phone Address T [facility] Group Dates SAMMY CHRISTIANSON [id number] 2019-Pres Alisson RYAN Medic aid HEALTHCARE - HEALTHCARE [place] [id number] MANAGED MEDICAID [place] documented as of this encounter
--- OUTSIDE RECORDS SUMMARY | 2020-02-28 18:50 | XMS REPORT | Summary of Care ---
:1995 Author Organization [facility] - [address] [address] Care Team Providers Name Role Phone Jessica Baker Insurance Hmo Jm Quiñonez MD Primary Care Provider Reason for Visit Reason Comments Lab Results Encounter Details Date Type Department Care Team Description 02/02/2020 Telephone [facility] Nephrology- Keyonna Hitchcock MD Lab Results [address] [phone] [place] [address] [place] [address] Allergies Active Allergy Reactions [...] Visit Obstetrics & Gynecology Shelia Quiñonez MD [address] [place] [address] [address] 2020 Office Visit Obstetrics & Gynecology Suzanna Slaughter PA-C [address] [place] [phone] Health Maintenance Due Date Last Done [...] Address T e Group Dates SAMMY BAZANINA [id number] 2019-Pres P O BOX Medic aid HEALTHCARE - HEALTHCARE [place] [id number] MANAGED MEDICAID [place] documented as of this encounter
--- OUTSIDE RECORDS SUMMARY | 2020-02-28 18:50 | XMS REPORT | Summary of Care ---
:1995 Author Organization [facility] - [facility] Address [address] [place] [address] Care Team Providers Name Role Phone Jessica Baker Insurance Hmo Jm Quiñonez MD Primary Care Provider Reason for Visit Reason Comments Refill Request Encounter Details Date Type Department Care Team Description 02/04/2020 Refill [facility] Nephrology- Keyonna Hitchcock MD Refill Request [address] [address] [place] [address] [place] [address] Allergies Active Allergy Reactions [...] Papanicolaou smear negative within last 12 mo [facility] 06/19/2019 Overview: 12/2018 NIL pap , [...] resend the prescription as soon as possible. [facility] [address] [place] [address] elephone Encounter - Za Enriquez RN - 02/04/2020 3:[address] Hitchcock please call in tramadol under Dr. Bill [facility] [address] [place] [address] Called into pharmacy traMADoL (ULTRAM) 50 mg tablet 15 tablet 1 02/04/2020 02/11/2020 -- Sig: Take 1 tablet by mouth every 6 (six) hours as needed for Pain (scale 4-6) for up to 7 days. Indications: acute pain Class: Normal Route: Oral Order: [id number] documented in this encounter Plan of Treatment Date Type Specialty Care Team Description 02/08/2020 Telemedicine Visit Obstetrics & Gynecology Shelia Quiñonez MD [address] [place] [address] [address] [phone] 2020 Office Visit Obstetrics & Gynecology Suzanna Slaughter PA-C [address] [place] [address] [phone] Health Maintenance Due Date Last Done Comments [...] Address T e Group Dates SAMMY CHRISTIANSON [id number] 2019-Pres P O BOX Medic aid HEALTHCARE - HEALTHCARE [place] [id number] MANAGED MEDICAID [place] documented as of this encounter
--- OUTSIDE RECORDS SUMMARY | 2020-02-28 18:50 | XMS REPORT | Summary of Care ---
:1995 Author Organization [facility] Address [address] [place] [address] Care Team Providers Name Role Phone Jessica Baker Insurance Hmo Jm Quiñonez MD Primary Care Provider Reason for Visit Reason Comments Fever Cough Auth/Cert Status Reason Specialty Diagnoses / Referred By Referred To Procedures Contact Contact Emergency Medicine Adc Em ergency Dept [address] [place] [address] Fax: Encounter Details Date Type Department Care Team Description 02/03/2020 Emergency ADC-Emergency Kaycee Méndez, Suspected Covid-19 Virus Infection (Primary Dx); Department PAC Cough; [address] [place] [address] Dr valdovinos 1717 [facility] Fever, unspecified fever cause; [place] [address] MARIA LUISA 5200 Viral URI with cough [phone] [place] [address] Allergies Active Allergy Reactions Severity [...] Body Mass Index 24.56 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 Coronavirus Disease 2019: Caring for Yourself and Others (Mexican)URI, Viral, No Abx (Adult) (Mexican)documented in this encounter ED Notes Ileana De León RN - 02/03/2020 4:09 PM CDT24 year old female coming to ER for fever and cough for 4 days. 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 documented in this [...] Obstetrics & Gynecology Shelia Quiñonez MD [address] [place] [address] DR. [facility] 208 [place], [place] [address] 2020 Office Visit Obstetrics & Gynecology Suzanna Slaughter PA-C [address] [place] [address] 208 [place] [phone] Name Type Priority Associated Diagnoses Date/Ti me [...] Pathologist Sig nature Streptococcus pyogenes Negative Negative [facility] (group A) antigen [facility] Specimen Swab - THROAT Performing Organization Address City/State/Zipcode Phone Number [facility] CLIA: [id number] [place] [address] documented in this [...] Address T ype Group Dates SAMMY CHRISTIANSON [id number] 2019-Pres P O BOX Medic aid HE[place]CARE [place]ARE [place] [id number] MANAGED MEDICAID [place] documented as of this encounter
--- OUTSIDE RECORDS SUMMARY | 2020-02-28 18:51 | XMS REPORT | Summary of Care ---
:1995 Author Organization [address] [address] Care Team Providers Name Role Phone Jessica Baker Insurance Hmo Jm Quiñonez MD Primary Care Provider Reason for Visit Reason Onset Date Comments Refill Request 02/11/2020 Encounter Details Date Type Department Care Team Description 02/11/2020 Refill [facility] Nephrology- Keyonna Hitchcock MD Refill Request [address] [phone] [place] [address] [place] [address] Allergies Active Allergy Reactions [...] Visit Obstetrics & Gynecology Young Quiñonez MD [address] [place] [address] [place] [address] [phone] Health Maintenance Due Date Last Done Comments [...] Address T e Group Dates SAMMY CHRISTIANSON [id number] 2019-Pres P O BOX Medic aid HEALTHCARE - HEALTHCARE [place] [id number] MANAGED MEDICAID [place] documented as of this encounter
--- OUTSIDE RECORDS SUMMARY | 2020-02-28 18:51 | XMS REPORT | Summary of Care ---
:1995 Author Organization [facility] Address [address] [place] [address] Care Team Providers Name Role Phone Jessica Baker Insurance Hmo Jm Quiñonez MD Primary Care Provider Reason for Visit Reason Comments Flank Pain Encounter Details Date Type Department Care Team Description 02/04/2020 Telemedicine Visit [facility] Lopez Hitchcock M D Kidney stones Nephrology- [address] [place] [address] (Primary Dx) [facility] [phone] [place] [address] Drive, 6th [place] [address] Allergies Active Allergy Reactions Severity [...] (AVS ) documentation will be available through [employer] for this encounter. A total of 15 minutes was spent on the Video Call, chart review, and coordination of care with specialists. Lopez Hitchcock MD documented in this encounter Plan of Treatment Date Type Specialty Care Team Description 08/11/2020 Office Visit Obstetrics & Gynecology Young Quiñonez MD [address] [place] [address] [place] [address] [phone] Health Maintenance Due Date Last Done Comments [...] Address T ype Group Dates SAMMY CHRISTIANSON [id number] 2019-Pres P O BOX Medic aid HEALTHCARE - HEALTHCARE [place] [id number] MANAGED MEDICAID [place] documented as of this encounter
--- OUTSIDE RECORDS SUMMARY | 2020-02-28 18:51 | XMS REPORT | Summary of Care ---
:1995 Author Organization [facility] Address [address] [place] [address] Care Team Providers Name Role Phone Baker, Jessica Insurance Hmo Jm Quiñonez MD Primary Care Provider Reason for Visit Reason Comments F/U Encounter Details Date Type Department Care Team Description 02/08/2020 Telemedicine Visit [facility] Women's Shelia Quiñonez MD Insomnia, unspecified type (Primary Dx); Healthcare- [address] [facility] Anxiety di sorder, unspecified type; Maurice CORNELL Other depression [address] [facility] [address], [address] [place], [place] [address] Allergies Active Allergy Reactions Severity Noted [...] Papanicolaou smear negative within last 12 mo [facility] 06/19/2019 Overview: 12/2018 [...] is the AVS which is accessible through [email or web address]. Patient/guardian/family verbalized understanding and agrees to the plan of care. Barriers to care:None. Ability to manage care: Good. If applicable, the [place] [employer] database was accessed to review any controlled substance prescription claims data. If the patient is taking prescribed medications, the [employer] prescription claims data in [employer] was reviewed to assess patient compliance with [...] Visit Obstetrics & Gynecology Young Quiñonez MD [address] [place] [address] [place] [address] [phone] Health Maintenance Due Date Last Done Comments [...] Address T ype Group Dates SAMMY CHRISTIANSON [id number] 2019-Pres P O BOX Medic aid HEALTHCARE - HEALTHCARE [place] [id number] MANAGED MEDICAID [place] documented as of this encounter
--- OUTSIDE RECORDS SUMMARY | 2020-02-28 18:52 | XMS REPORT | Summary of Care ---
:1995 Author Organization [facility] - [facility] Address [address] [place] [address] Care Team Providers Name Role Phone Jessica Baker Insurance Hmo Jm Quiñonez MD Primary Care Provider Encounter Details Date Type Department Care Team Description 02/05/2020 Patient Secure [facility] [address], [facility] 6th Floor [phone] [place] [address] Allergies Active Allergy Reactions Severity [...] Papanicolaou smear negative within last 12 mo [facility] 06/19/2019 Overview: 12/2018 NIL pap , [...] Visit Obstetrics & Gynecology Young Quiñonez MD [address] [place] [address] DR. Rowe [address] [place], [place] [address] [phone] Health Maintenance Due Date Last Done Comments [...] Address T ype Group Dates SAMMY CHRISTIANSON [id number] 2019-Pres P O BOX Medic aid HEALTHCARE - [place]ALTHCARE [place] [id number] MANAGED MEDICAID [place] documented as of this encounter
--- OUTSIDE RECORDS SUMMARY | 2020-02-28 18:52 | XMS REPORT | Summary of Care ---
:1995 Author Organization [facility] Address [address] [place] [address] Care Team Providers Name Role Phone Jessica Baker Insurance Hmo Jm Quiñonez MD Primary Care Provider Encounter Details Date Type Department Care Team Description 2020 Patient Secure [facility] Lopez Hitchcock M D Nephrology- [address], [address] [place] [address] Floor [phone] [place] [address] Allergies Active Allergy Reactions Severity Noted Date Comments Metoclopramide Hcl Anxiety 07/12/2019 Patient s ays she gets figity, angry and mean documented as of this encounter (statuses as of 2020) Medications Medication Sig Dispensed Refills Start Date [...] hr by mouth daily. capsuleIndications: Kidney stones traZODone 50 mg Take 1 tablet 30 tablet 5 02/08/2020 Active tabletIndications: by mouth at Insomnia, unspecified bedtime. type FLUoxetine 10 mg Take 1 capsule 30 capsule 5 02/08/2020 Active capsuleIndications: by mouth daily. Anxiety disorder, unspecified type traMADoL 100 mg Tab Take 100 mg by 21 tablet 0 2020 Active mouth every 6 (six) hours as needed for Pain (scale 7-10). hydroCHLOROthiazide 25 mg Take 0.5 90 tablet 1 2020 Active tabletIndications: Kidney tablets by stones mouth daily. documented as of this encounter (statuses as of 2020) Active Problems Problem Noted Date Anxiety disorder, unspecified type 01/05/2020 Insomnia, unspecified type 01/05/2020 Other depression 08/13/2019 Cervical Papanicolaou smear negative within last 12 mo [facility] 06/19/2019 Overview: 12/2018 NIL pap , see scanned records documented as of this encounter (statuses as of 2020) Resolved Problems Problem Noted Date Resolved Date [...] as of this encounter (statuses as of 2020) Immunizations Name Administration Dates Next Due Influenza [...] Treatment Date Type Specialty Care Team Description 02/25/2020 Telemedicine Visit Nephrology Lopez Hitchcock M D [address] [place] [phone] 08/11/2020 Office Visit Obstetrics & Quiñonez, Munir Johnson Gynecology [address] [place] [address] DR. [place], [place] [address] Health Maintenance Due Date Last Done Comments [...] T ype Group Dates CHRISTIANSONMARIA LUZ CHRISTIANSON [id number] 2019-Pres P O BOX Medic aid HEALTHCARE - HEALTHCARE [place] [id number] MANAGED MEDICAID [place] documented as of this encounter
--- OUTSIDE RECORDS SUMMARY | 2020-02-28 18:52 | XMS REPORT | Summary of Care ---
:1995 Author Organization [facility] Address [address] [place] [address] Care Team Providers Name Role Phone Jessica Baker Insurance Hmo Jm Quiñonez MD Primary Care Provider Encounter Details Date Type Department Care Team Description 02/17/2020 Patient Secure [facility] Lopez Hitchcock M D Nephrology-[address] [facility] [address], [address] Entrance B [phone] [place] [address] Allergies Active Allergy Reactions Severity Noted Date Comments Metoclopramide Hcl Anxiety 07/12/2019 Patient s ays she gets figity, angry and mean documented as of this encounter (statuses as of 02/17/2020) Medications Medication Sig Dispensed Refills Start Date [...] as of this encounter (statuses as of 02/17/2020) Active Problems Problem Noted Date Anxiety disorder, unspecified type 01/05/2020 Insomnia, unspecified type 01/05/2020 Other depression 08/13/2019 Cervical Papanicolaou smear negative within last 12 mo [facility] 06/19/2019 Overview: 12/2018 NIL pap , see scanned records documented as of this encounter (statuses as of 02/17/2020) Resolved Problems Problem Noted Date Resolved Date [...] as of this encounter (statuses as of 02/17/2020) Immunizations Name Administration Dates Next Due Influenza [...] this encounter Miscellaneous Notes Telephone Encounter - Zabrina Mckeon RN - 02/17/2020 2:56 PM CDTMy chart message sent to patient. Contacting Dr. Renolectronically signed by Zabrina Mckeon RN at 02/17/2020 2:56 PM CDTdocumented in this encounter Plan of Treatment Date Type Specialty Care Team Description 08/11/2020 Office Visit Obstetrics & Gynecology Young Quiñonez MD [address] [place] [address] [place] [address] [phone] Health Maintenance Due Date Last Done Comments [...] Address T ype Group Dates SAMMY CHRISTIANSON [id number] 2019-Pres P O BOX Medic aid HEALTHCARE [place]ARE [place] [id number] MANAGED MEDICAID [place] documented as of this encounter
--- OUTSIDE RECORDS SUMMARY | 2020-02-28 18:52 | XMS REPORT | Summary of Care ---
:1995 Author Organization [facility] Address [address] [place] [address] Care Team Providers Name Role Phone Jessica Baker Insurance Hmo Jm Quiñonez MD Primary Care Provider Encounter Details Date Type Department Care Team Description 02/17/2020 Patient Secure [facility] Lopez Hitchcock M D Nephrology-[address] [facility] [address], [phone] Entrance B [phone] [place] [address] Allergies Active Allergy Reactions Severity [...] tabletIndications: Kidney tablets by stones mouth daily. traMADoL 100 mg Tab Take 100 mg by 21 tablet 0 2020 Active mouth every 6 (six) hours as needed for Pain (scale 7-10). documented as of this encounter (statuses as [...] on filedocumented in this encounter Miscellaneous Notes Addendum Note - Za Bronson RN - 2020 10:29 AM CDT Addended by: ZA BRONSON on: 2020 10:29 AM Modules accepted: Orders Telephone Encounter - Zabrina Mckeon RN - 02/17/2020 2:56 PM CDTMy chart message sent to patient. Contacting Dr. Renolectronically signed by Zabrina Mckeon RN at 02/17/2020 2:56 PM CDTdocumented in this encounter Plan of Treatment Date Type Specialty Care Team Description 02/25/2020 Telemedicine Visit Nephrology Lopez Hitchcock M D [address] [place] [phone] 08/11/2020 Office Visit Obstetrics & QuiñonezShelia M D Gynecology [address] [place] [address] DR. Son [place], [place] [address] Health Maintenance Due Date [...] Address T ype Group Dates SAMMY CHRISTIANSON [id number] 2019-Pres Alisson Manzano BOX Medic aid HEALTHCARE - HEALTHCARE [place] [id number] MANAGED MEDICAID [place] documented as of this encounter
--- OUTSIDE RECORDS SUMMARY | 2020-02-28 18:53 | XMS REPORT | Summary of Care ---
:1995 Author Organization [facility] Address [address] [place] [address] Care Team Providers Name Role Phone Jessica Baker Insurance Hmo Jm Quiñonez MD Primary Care Provider Encounter Details Date Type Department Care Team Description 2020 Patient Secure [facility] Lopez Hitchcock M D Nephrology- [address], [address] [place] [address] Floor [phone] [place] [address] Allergies Active Allergy Reactions Severity [...] Telemedicine Visit Nephrology Lopez Hitchcock M D [address] [place] [phone] 08/11/2020 Office Visit Obstetrics & Quiñonez, Munir Johnson Gynecology [address] [place] [address] DR. Son [place], [place] [address] Health Maintenance Due Date [...] T ype Group Dates CHRISTIANSONMARIA LUZ CHRISTIANSON [id number] 2019-Pres P O BOX Medic aid HEALTHCARE - [place]ALTHCARE [place] [id number] MANAGED MEDICAID [place] documented as of this encounter
--- OUTSIDE RECORDS SUMMARY | 2020-02-28 18:53 | XMS REPORT | Summary of Care ---
:1995 Author Organization [facility] - [facility] Address [address] [place] [address] Care Team Providers Name Role Phone Jessica Baker Insurance Hmo Jm Quiñonez MD Primary Care Provider Reason for Visit Reason Comments Rx Concern/Question Tramadol Encounter Details Date Type Department Care Team Description 2020 Telephone [facility] Lopez Hitchcock MD Rx Concern/Question Nephrology- [address] (Tramadol) [place] [address] [place], [place] [phone] Drive, 6th Floor [phone] [place] [address] Allergies Active Allergy Reactions Severity [...] Telephone Encounter - Za Enriquez RN - 2020 2:35 [address] Hitchcock spoke with patient. Concerns for stone as well as cysts on the ovary seen on previous US and CT Referral to [facility] She is established with Dr. Quiñonez. Routed message to Dr. Quiñonez. Telephone Encounter - Remedios Nettles - 2020 1:52 PM CDTPt called stating her Pharmacy called patient and told her that her tramadol. States they need the diagnosis codes. documented in this encounter Plan of Treatment Date Type Specialty Care Team Description 02/25/2020 Telemedicine Visit Nephrology Lopez Hitchcock M D [address] [place] [phone] 08/11/2020 Office Visit Obstetrics & Shelia Quiñonez M D Gynecology [address] [place] [address] [place] [address] [phone] Health Maintenance Due Date Last Done Comments [...] Subscriber ID Effective Phone Address T [facility] Group Dates SAMMY CHRISTIANSON [id number] 2019-Pres P O BOX Medic aid HEALTHCARE - HEALTHCARE [place] [id number] MANAGED MEDICAID [place] documented as of this encounter
--- OUTSIDE RECORDS SUMMARY | 2020-02-28 18:53 | XMS REPORT | Summary of Care ---
:1995 Author Organization [facility] Address [address] [place] [address] Care Team Providers Name Role Phone Jessica Baker Insurance Hmo Jm Quiñonez MD Primary Care Provider Encounter Details Date Type Department Care Team Description 2020 Patient Secure [facility] Lopez Hitchcock M D Nephrology- [address], [address] [place] [address] Floor [phone] [place] [address] Allergies Active Allergy Reactions Severity [...] encounter Miscellaneous Notes Telephone Encounter - Za Enriquez, RN - 2020 2:21 PM CDTSpoke with pharmacist - they state patient has called there asking for tramadol every 10-15 minutes. documented in this encounter Plan of Treatment Date Type Specialty Care Team Description 02/25/2020 Telemedicine Visit Nephrology Lopez Hitchcock M D [address] [place] [phone] 08/11/2020 Office Visit Obstetrics & QuiñonezShelia M D Gynecology [address] [place] [address] [phone] Health Maintenance Due Date Last Done [...] Address T e Group Dates SAMMY CHRISTIANSON [id number] 2019-Pres P O BOX Medic aid [place] [id number] MANAGED MEDICAID [place] documented as of this encounter
--- OUTSIDE RECORDS SUMMARY | 2020-02-28 18:53 | XMS REPORT | Summary of Care ---
:1995 Author Organization [facility] Address [address] [place] [address] Care Team Providers Name Role Phone Jessica Baker Insurance Hmo Jm Quiñonez MD Primary Care Provider Reason for Visit Reason Onset Date Comments Refill Request 2020 Encounter Details Date Type Department Care Team Description 2020 Refill [facility] Lopez Hitchcock MD Refill Request Nephrology-[address] [facility] [address] 4698 [facility], Entrance [place] [phone] Allergies Active Allergy Reactions Severity Noted Date [...] Miscellaneous Notes Telephone Encounter - Za Enriquez, ROSEY - 2020 2:22 PM CDTRefills already called into pharmacy documented in this encounter Plan of Treatment Date Type Specialty Care Team Description 02/25/2020 Telemedicine Visit Nephrology Lopez Hitchcock M D [address] [place] [phone] 08/11/2020 Office Visit Obstetrics & Quiñonez, Munir Johnson Gynecology [address] [place] [address] DR. Row[address] [place] [address]75 15 Health Maintenance Due Date Last [...] Address T ype Group Dates SAMMY BAZANINA [id number] 2019-Pres P O BOX Medic aid [place] [id number] MANAGED MEDICAID [place] documented as of this encounter
--- OUTSIDE RECORDS SUMMARY | 2020-02-28 18:53 | XMS REPORT | Summary of Care ---
:1995 Author Organization [facility] Address [address] [place] [address] Care Team Providers Name Role Phone Jessica Baker Insurance Hmo Jm Quiñonez MD Primary Care Provider Reason for Visit Reason Comments Rx Concern/Question Encounter Details Date Type Department Care Team Description 2020 Telephone [facility] Lopez Hitchcock MD Rx Concern/Question Nephrology- [address], [address] [place] [address] Floor [phone] [place] [address] Allergies Active Allergy Reactions Severity Noted Date Comments Metoclopramide Hcl Anxiety 07/12/2019 Patient s ays she gets figity, angry and mean documented as of this encounter (statuses as of 2020) Medications Medication Sig Dispensed Refills Start End [...] by 20 capsuleIndications: mouth daily. Kidney stones traZODone 50 mg Take 1 tablet 30 tablet 5 02/08/20 Active tabletIndications: by mouth at 20 Insomnia, unspecified bedtime. type FLUoxetine 10 mg Take 1 30 capsule 5 02/08/20 Ac tive capsuleIndications: capsule by 20 Anxiety disorder, mouth daily. unspecified type traMADoL 100 mg Tab Take 100 mg 21 tablet 0 02/18/20 Active by mouth 20 every 6 (six) hours as needed for Pain (scale 7-10). hydroCHLOROthiazide 25 Take 0.5 90 tablet 1 02/18/20 Active mg tabletIndications: tablets by 20 Kidney stones mouth daily. hydroCHLOROthiazide 25 Take 0.5 90 tablet 1 02/11/20 Discontinued mg tabletIndications: tablets by 20 020 (Reorder) Kidney stones mouth daily. documented as of this [...] Encounter - Za Enriquez RN - 2020 12:25 PM CDTScripts were sent to [facility]. Will resend to [facility] Telephone Encounter - Skylar Ham - 2020 11:10 AM CDTAngel Nelia Dyson is a 24 year old female is calling [facility] has not received Tramadol and hydroCHLOROthiazide. Thank you. [facility] [address] [place] [address] documented in this encounter Plan of Treatment Date Type Specialty Care Team Description 02/25/2020 Telemedicine Visit Nephrology Lopez Hitchcock M D [address] [place] [phone] 08/11/2020 Office Visit Obstetrics & QuiñonezShelia M D Gynecology [address] [place] [address] DR. Son [place], [place] [address] Health Maintenance Due Date [...] / Subscriber ID Effective Phone Address [facility] Group Dates SAMMY CHRISTIANSON [id number] 2019-Pres P O BOX Medic aid HEALTHCARE [place] [id number] MANAGED MED[place]ID [place] documented as of this encounter
--- OUTSIDE RECORDS SUMMARY | 2020-02-28 18:54 | XMS REPORT | Summary of Care ---
:1995 Author Organization [facility] Address [address] [place] [address] Care Team Providers Name Role Phone Jessica Baker Insurance Hmo Jm Quiñonez MD Primary Care Provider Reason for Visit Reason Comments Kidney Problem Encounter Details Date Type Department Care Team Description 02/25/2020 Telemedicine Visit [facility] Lopez Hitchcock M D Pain (Primary Dx) Nephrology- [address] [place] [address] [place], [place] [phone] Drive, 6th Floor [phone] [place] [address] Allergies Active Allergy Reactions Severity Noted Date Comments Metoclopramide Hcl Anxiety 07/12/2019 Patient s ays she gets figity, angry and mean documented as of this encounter (statuses as of 02/25/2020) Medications Medication Sig Dispensed Refills Start Date [...] as of this encounter (statuses as of 02/25/2020) Active Problems Problem Noted Date Anxiety disorder, unspecified type 01/05/2020 Insomnia, unspecified type 01/05/2020 Other depression 08/13/2019 Cervical Papanicolaou smear negative within last 12 mo [facility] 06/19/2019 Overview: 12/2018 NIL pap , see scanned records documented as of this encounter (statuses as of 02/25/2020) Resolved Problems Problem Noted Date Resolved Date [...] as of this encounter (statuses as of 02/25/2020) Immunizations Name Administration Dates Next Due Influenza [...] encounter Progress Notes Lopez Hitchcock MD - 02/25/2020 4:00 PM CDT TELEHEALTH NOTE Verbal consent obtained from Patient: Natanael Dyson due to the COVID-19 pandemic for telehealthservices provided below. Communication with patient was conducted via Video Call. Location of Patient: Home Location of Provider: Clinic Date of Service: 02/25/2020 Chief Complaint: Flank pain HPI: Natanael Dyson is a 25 year old female with PMH of non obstructive renal stones She has been taking HCTZ, Flomax and K Citrate and reports less pain She has occasional nausea Past Medical History: Diagnosis Date Anemia of [...] Current Outpatient Medications Medication Sig Dispense Refill hydroCHLOROthiazide 25 mg tablet Take 0.5 tablets by mouth daily. 90 tablet 1 traMADoL 100 mg Tab Take 100 mg by mouth every 6 (six) hours as needed for Pain (scale 7-10). 21tablet 0 FLUoxetine 10 mg capsule Take 1 capsule by mouth daily. 30 capsule 5 traZODone 50 mg tablet Take 1 tablet by mouth at bedtime. 30 tablet 5 tamsulosin (FLOMAX) 0.4 mg 24 hr capsule Take 1 capsule by mouth daily. 30 capsule 1 benzonatate 200 mg capsule Take 1 [...] times daily with meals. 180 tablet 1 norgestimate-ethinyl estradiol 0.25-35 mg-mcg per tablet Take 1 tablet by mouth daily. 1 Package2 ALBUTEROL 90 mcg/actuation inhaler INHALE 2 PUFFS BY MOUTH EVERY 6 HOURS NEEDED FOR WHEEZING FOR SHORTNESS OF BREATH 7 Each 3 No current facility-administered medications for this visit. ROS All pertinent 7 systems reviewed TELEHEALTH EXAM Alert in no distress ASSESSMENT/ PLAN Natanael Dyson is a 25 year old female with PMH as above presenting with: Flank pain Renal Stones Patient is doing well on current regimen , will continue same After visit summary (AVS ) documentation will be available through [employer] for this encounter. A total of 15 minutes was spent on the Video Call, chart review, and coordination of care with specialists. Lopez Hitchcock MD documented in this encounter Plan of Treatment Date Type Specialty Care Team Description 08/11/2020 Office Visit Obstetrics & Gynecology Young Quiñonez MD [address] [place] [address] 775 15 [phone] Health Maintenance Due Date Last Done Comments PAP SMEAR 02/19/2016 INFLUENZA VACCINE (#1) 2020 02/06/2019 HPV VACCINES (1 - 2-dose 03/02/2020 Postpon ed from series) 2006 (Preg nant or ) Depression Screening 09/01/2020 09/02/2019, 09/02/2019 DTaP,Tdap,and Td Vaccines (2 05/21/2029 05/21/2019 - Td) PNEUMOCOCCAL 0-64 YEARS Discontinued COMBINED SERIES documented as of this encounter Results Not on filedocumented in this encounter Visit Diagnoses Diagnosis Pain - Primary Generalized pain documented in this encounter Insurance Payer Benefit Plan / Subscriber ID Effective Phone Address T e Group Dates SAMMY CHRISTIANSON [id number] 2019-Pres Alisson RYAN Medic aid HEALTHCARE - [place]CARE [place] [id number] MANAGED MEDICAID [place] documented as of this encounter
--- NOTE | 2020-02-28 20:02 | ER ---
Nurse's Notes [facility] Name: Natanael Dyson Age: 25 yrs Sex: Female : 1995 Arrival Date: 02/28/2020 Time: 18:46 Bed Waiting Private MD: Diagnosis: ED Course: 02/27 18:46 Patient arrived in ED. as 18:46 Bob[facility] Vang [facility]-C [facility] kb 18:46 Harjit Samson MD is Attending Physician. kb 19:53 Barrie Ziegler MD is Attending Physician. tw4 Administered Medications: No medications were administered Outcome: 20:01 Patient left the ED. jd3 Signatures: Bobbi Vang FNP-C FNP-Ckb Martinez, Amelia as Davies, Jonathon, RN RN jd3 Barrie Ziegler MD MD tw4
== END 2020-02-28 20:01 | disposition left against medical advice (07) ==
LOC: ER 18:44
DX: Z02.9 Encounter for administrative examinations, unspecified (principal)

== ENCOUNTER 2020-03-05 19:34 | Emergency (ER) | payer MEDICAID ==
--- OUTSIDE RECORDS SUMMARY | 2020-03-05 19:37 | XMS REPORT | Continuity of Care Document ---
:1995 Author Organization [facility] t Address [address] [place] [address] Dr. [address] [place] [address] Care Team Providers Name Role Phone Errol HENDRICKS Attending Clinician Dharmesh Roy Attending Clinician Doctor Unassigned, Name Attending Clinician Unavailable Coretta FELIX Attending Clinician Problems This patient has no known problems. Allergies, Adverse Reactions, Alerts This patient has no known allergies or adverse reactions. Medications This patient has no known medications. Procedures This patient has no known procedures. Encounters Start End Encounter Admission Attending Care Care Encounter Source Date/Time Date/Time Type Type Clinicians Facility Department ID 2020-02-28 2020-02-28 Emergency Andreia Norton [facility] 1.2.840 .114 [id number] 19:30:00 21:38:00 Omari Hurst 350.1.13.10 [place] 4.2.7.2.686 [place] [id number] 2020-02-28 2020-02-28 Orders Doctor [place] 1.2.840.114 [id number] 00:00:00 00:00:00 Only UnassignedYAZMIN 350.1.13.10 [place] [facility] 4.2.7.2.686 [id number] 2020-02-25 2020-02-25 Telemedici [facility].840.11 4 [id number] 13:30:06 14:00:06 ne Visit [facility] 350.1.13.10 [facility] 4.2.7.2.686 [id number] 2020 2020 Patient CorettaAnilar [facility] 1.2.840.114 [id number] 00:00:00 00:00:00 Secure Msg Y HE[facility] 350.1.13.10 CLINICS 4.2.7.2.686 [id number] 2020 2020 Patient CorettaHeavenLopez [facility] 1.2.840.114 [id number] 00:00:00 00:00:00 Secure Msg Y HEALTH 350.1.13.10 CLINICS 4.2.7.2.686 [id number] 312 2020 2020 Patient CorettaHeavenLopez [facility] 1.2.840.114 [id number] 00:00:00 00:00:00 Secure Msg Y HEALTH 350.1.13.10 CLINICS 4.2.7.2.686 [id number] 2020 2020 Refill Anila Hitchcockr [facility] 1.2.840.114 [id number] 00:00:00 00:00:00 MULTISPEC 350.1.13.10 [facility] 4.2.7.2.686 [facility] [id number] [facility] 2020 2020 Telephone Anila Hitchcockr [facility] 1.2.840.114 [id number] 00:00:00 00:00:00 Y HEALTH 350.1.13.10 CLINICS 4.2.7.2.686 [id number] 312 2020 2020 Telephone CorettaAnilar [facility] 1.2.840.114 [id number] 00:00:00 00:00:00 Y HEALTH 350.1.13.10 CLINICS 4.2.7.2.686 [id number] 2020-02-17 2020-02-17 Patient Coretta, Lopez [facility] 1.2.840.114 [id number] 00:00:00 00:00:00 Secure Msg MULTISPEC 350.1.13.10 [facility] 4.2.7.2.686 [facility] [id number] AND [facility] Results This patient has no known results.
--- OUTSIDE RECORDS SUMMARY | 2020-03-05 19:38 | XMS REPORT | Summary of Care ---
:1995 Author Organization [facility] Address [address] [place] [address] Care Team Providers Name Role Phone Jessica Baker Insurance Hmo Jm Quiñonez MD Primary Care Provider Reason for Referral MRI/CAT Scan (STAT) Status Reason Specialty Diagnoses / Referred By Referred To Procedures Contact Contact New Request Diagnostic Diagnoses Flank pain Maggie Hamilton Radiology Procedures CT Abdomen/Pelvis W/O Contrast J, DO [address] [place] [address] Reason for Visit Reason Comments Flank Pain right Auth/Cert Status Reason Specialty Diagnoses / Referred By Referred To Procedures Contact Contact Emergency Medicine [facility] Em ergency Dept [address] [place] [address] Fax: Encounter Details Date Type Department Care Team Description 12/26/2019 Emergency ADC-Emergency Maggie Hamilton, Flank p ain (Primary Department DO Dx) [address] [place] [address] [phone] Allergies Active Allergy Reactions Severity Noted Date [...] Body Mass Index 23.62 07/18/2019 1:13 AM STORE MGR documented in this encounter Discharge Instructions Maggie Salazar DO - 12/26/2019DIAGNOSIS 1. Pyelonephritis NO LIFE-THREATENING FINDINGS ON TODAY'S EXAM. PROCEDURES IN THE ER TODAY: Blood work Urine test CT abdomen/pelvis MEDICATIONS ADMINISTERED IN THE ER TODAY: Zofran Morphine Toradol IV fluids Rocephin YOUR PRESCRIPTIONS AND [id number] MEDICATION RECOMMENDATIONS: Vantin by mouth twice a day. Please complete your entire course of antibiotics. Tylenol with codeine by mouth every 4 hours as needed for pain. Do not drive while taking this medication. SPECIAL CARE INSTRUCTIONS: None FOLLOW-UP RECOMMENDATIONS: RECOMMEND FOLLOW-UP WITH A PRIMARY CARE PROVIDER OR SPECIALIST IN 2-5 DAYS, ESPECIALLY IF NO IMPROVEMENT IN SYMPTOMS. TO FOLLOW-UP WITHIN THE [facility], TRY THESE OPTIONS (CLINIC APPOINTMENTS AVAILABLE ON ELXO-GX-[id number] BASIS): 1. SCHEDULE AN APPOINTMENT ONLINE AT WWW.[facility] 2. OR CALL THE [facility] AT OR 3. OR CALL YOUR [facility] PHYSICIAN'S OFFICE DIRECTLY IF YOU ARE ALREADY AN ESTABLISHED [facility] PATIENT. OR, YOU MAY FOLLOW-UP WITH A PROVIDER OF YOUR CHOICE, SUCH : 1. A PHYSICIAN OF YOUR CHOICE 2. [facility], . LOCATIONS IN [facility] 3. [facility], [address] [place], [place]; [phone] RETURN TO ER FOR WORSENING OF SYMPTOMS. AttachmentsThe following attachments cannot be sent through Care Everywhere. Abdominal Pain, Adult (Taiwanese)Pyelonephritis, Discharge Instructions for (Taiwanese)documented in this encounter ED Notes Yamini Brito RN - 12/26/2019 9:22 AM CDTPatient c/o right flank pain x2 weeks and is becoming worse; states she now is having trouble voiding. LMP per patient was the "beginning of this month". aggie Hamilton DO - 12/26/2019 9:16 AM CDT [facility] Emergency Department Note Patient Name: Natanael Dyson [...] N/A 07/21/2019 Surgeon: Shelia Quiñonez MD; Location: [facility] Labor and Delivery OR Location TUBAL LIGATION N/A 07/21/2019 Surgeon: Shelia Quiñonez MD; Location: [facility] Labor and Delivery OR Location [...] C Line present POCT PREG LOT # [id number] POCT PREG TEST DATE Urinalysis Collection Time: [...] Visit Obstetrics & Gynecology Suzanna Slaughter PA-C [address] [place] [address] [phone] Name Type Priority Associated Diagnoses Order [...] with the above report. Performing Organization Address [facility] Phone Number PACS/VR/DOSE Urinalysis (12/26/2019 9:56 AM CDT) Pathologist Sig nature APPEARANCE Cloudy (A) Clear [facility] COLOR Yellow Yellow [facility] PH 7.0 4.8 - 8.0 [facility] SP GRAVITY 1.021 1.003 - 1.030 [facility] GLU U QUAL Normal Normal [facility] BLOOD Negative Negative [facility] KETONES Negative Negative [facility] PROTEIN Negative Negative [facility] UROBILIN Normal Normal [facility] BILIRUBIN Negative Negative [facility] NITRITE Negative Negative [facility] LEUK ANJELICA 75/uL (A) Negative [facility] RBC/HPF 2 0 - 3 HPF [facility] WBC/HPF 4 0 - 5 HPF [facility] BACTERIA Few (A) Negative [facility] MUCOUS Slight (A) Negative LPF [facility] SQ EPITH 29 HPF [facility] Specimen Urine - URINE, CLEAN CATCH Performing Organization Address [facility] Cent[facility]ode Phone Number [facility] CLIA: [id number] [place] [address] POCT Test (12/26/2019 9:55 AM CDT) Pathologist Sig nature POCT PREG negative On board controls acceptable present with C Line POCT PREG LOT # [id number] POCT PREG TEST DATE Specimen Urine - URINE, CLEAN CATCH Test, Serum (12/26/2019 9:29 AM CDT) Pathologist [facility] PREG SERUM Negative [facility] Specimen Blood - VENOUS Narrative Performed At Less than 10 IU/L. If low titer or ectopic [facility] is suspected, resubmit specimen in 48-72 hours. Performing Organization Address City/State/Zipcode Phone Number [facility] CLIA: [id number] [place] [address] Basic Metabolic Panel (NA, K, CL, CO2, GLUCOSE, BUN, CREATININE, CA) (12/26/2019 9:29 AM CDT) [facility] NA 136 135 - 145 [facility] mmol/L [facility] K 3.9 3.5 - 5.0 [facility] mmol/L [facility] CL 106 98 - 108 mmol/L [facility] CO2 TOTAL 22 (L) 23 - 31 mmol/L [facility] AGAP 8 2 - 16 [facility] BUN 13 7 - 23 mg/dL [facility] GLUCOSE 104 70 - 110 mg/dL [facility] CREATININE 0.71 0.50 - 1.04 [facility] mg/dL [facility] CALCIUM 9.2 8.6 - 10.6 [facility] mg/dL [facility] eGFR Calculation 101.1 mL/min/1.73m2 [facility] (Non-) [facility] LABORATOR Y eGFR Calculation 122.6 mL/min/1.73m2 [facility] () [facility] Specimen Blood - VENOUS Narrative Performed At Association of Glomerular Filtration Rate (GFR) [facility] and Staging of Kidney Disease* [...] tests). Performing Organization Address City/State/Zipcode Phone Number [facility] CLIA: [id number] [place] [address] CBC with Differential (12/26/2019 9:29 AM CDT) Pathologist Sig nature WBC 5.16 4.30 - 11.10 [facility] 10*3/L [facility] RBC 4.67 3.93 - 5.25 [facility] 10*6/L [facility] HGB 13.4 11.6 - 15.0 g/dL [facility] HCT 40.3 35.7 - 45.2 % [facility] MCV 86.3 80.6 - 95.5 fL [facility] MCH 28.7 25.9 - 32.8 pg [facility] MCHC 33.3 31.6 - 35.1 g/dL [facility] RDW-SD 44.3 39.0 - 49.9 fL [facility] RDW-CV 14.0 12.0 - 15.5 % [facility] PLT 346 166 - 358 [facility] 10*3/L [facility] MPV 10.0 9.5 - 12.9 fL [facility] NRBC/100 WBC 0.0 0.0 - 10.0 /100 [facility] WBCs [facility] NRBC x10^3 <0.01 10*3/L [facility] GRAN MAT (NEUT) % 40.8 % [facility] IMM GRAN % 0.40 % [facility] LYMPH % 44.4 % [facility] MONO % 6.6 % [facility] EOS % 7.0 % [facility] BASO % 0.8 % [facility] GRAN MAT x10^3(ANC) 2.11 1.88 - 7.09 [facility] 10*3/uL [facility] IMM GRAN x10^3 <0.03 0.00 - 0.06 [facility] 10*3/uL [facility] LYMPH x10^3 2.29 1.32 - 3.29 [facility] 10*3/uL [facility] MONO x10^3 0.34 0.33 - 0.92 [facility] 10*3/uL [facility] EOS x10^3 0.36 0.03 - 0.39 [facility] 10*3/uL [facility] BASO x10^3 0.04 0.01 - 0.07 [place] [address]/[facility] LABORATORY Specimen Blood - VENOUS Performing Organization Address City/State/Zipcode Phone Number [facility] CLIA: [id number] [place] [address] documented [...] ONCE, 1 dose, 12/26/19 at 0930, [place], hotel staff member approving Restricted medication: MAGGIE HAMILTON morpHINE [...] Address T ype Group Dates SAMMY BAZANINA [id number] 2019-Pres P [address] BOX Medic aid [place] [id number] MANAGED MEDICAID [place], [place] documented as of this encounter
--- OUTSIDE RECORDS SUMMARY | 2020-03-05 19:38 | XMS REPORT | Summary of Care ---
:1995 Author Organization [facility] - [facility] Address [address] [place] [address] Care Team Providers Name Role Phone Jessica Baker Insurance Hmo Jm Quiñonez MD Primary Care Provider Encounter Details Date Type Department Care Team Description 12/26/2019 Orders Only [facility] Doctor Unassigned, No [address] [facility] Name [place] [phone] [place] [address] Allergies Active Allergy Reactions Severity Noted Date [...] Visit Obstetrics & Gynecology Suzanna Slaughter PA-C [address] [place] [address] [phone] Health Maintenance Due Date Last Done [...] / Subscriber ID Effective Phone Address T [facility] Group Dates SAMMY CHRISTIANSON [id number] 2019-Pres [address] BOX Medic aid HEALTHCARE - HEALTHCARE ent [id number] MANAGED MEDICAID [place] documented as of this encounter
--- OUTSIDE RECORDS SUMMARY | 2020-03-05 19:39 | XMS REPORT | Summary of Care ---
:1995 Author Organization [facility] Address [address] [place] [address] Care Team Providers Name Role Phone Jessica Baker Insurance Hmo Jm Quiñonez MD Primary Care Provider Encounter Details Date Type Department Care Team Description 01/13/2020 Patient Secure [facility] Lopez Hitchcock M D Nephrology- [address], [address] 6th Floor [phone] [place] [address] Allergies Active Allergy Reactions Severity [...] Enriquez RN - 01/15/2020 11:11 AM CDT [phone] (home) Left message to call back documented in this encounter Plan of Treatment Date Type Specialty Care Team Description 02/08/2020 Telemedicine Visit Obstetrics & Gynecology Shelia Quiñonez MD [address] [place] [address] 775 15 [phone] 2020 Office Visit Obstetrics & Gynecology Suzanna Slaughter PA-C [address] [place] [phone] Health Maintenance Due Date Last Done Comments [...] Address T ype Group Dates SAMMY CHRISTIANSON [id number] 2019-Pres P O BOX Medic aid [facility]CARE [place]ARE [place] [id number] MANAGED MEDICAID [place] documented as of this encounter
--- OUTSIDE RECORDS SUMMARY | 2020-03-05 19:39 | XMS REPORT | Summary of Care ---
:1995 Author Organization [facility] Address [address] [place] [address] Care Team Providers Name Role Phone BakerJessica Insurance Hmo Jm Quiñonez MD Primary Care Provider Reason for Referral (Routine) Status Reason Specialty Diagnoses / Referred By Referred To Procedures Contact Contact New Request Psychiatry Diagnoses Anxiety disorder, unspecified type Insomnia, unspecified type Depression, unspecified depression type Shelia Quiñonez MD Procedures CONSULT/REFERRAL PSYCHIATRY ADULT [address] [facility] [address] [place] [address] Reason for Visit Reason Comments Anxiety Encounter Details Date Type Department Care Team Description 01/05/2020 Telemedicine Visit [facility] Women's Shelia Quiñonez MD Anxiety disorder, unspecified type (Prim robert Dx); [facility]- [address] [facility] Insomnia, unspecified type; Maurice CORNELL Depression, unspecified depression type 146 [facility] [address], [address] [place] [address] [phone] Allergies Active Allergy Reactions Severity Noted Date [...] risk, serotonin syndrome, QT prolongation, SIADH, hyponatremia, WELDING MACHINE TENDER depression, insomnia, anxiety, nervousness, anorexia. Advise it may take at least 6 wks of treatment before seeing improvement in mood. Patient understands and desires treatment. [facility] discussed and patient will schedule an appointment with them for counseling.Patient is aware that she will be referred to psych for further management. Follow-up in 4 wks for EPDS/anxiety. After visit summary (AVS ) documentation will be available through Marley Spoon for this encounter. A total of 25 minutes was spent on the video call and chart review. Shelia Quiñonez MD 01/05/2020 5:44 PM documented in this encounter Plan of Treatment Date Type Specialty Care Team Description 01/14/2020 Office Visit Nephrology Lopez Hitchcock MD [address] [place] [address] [phone] 2020 Office Visit Obstetrics & Gynecology Suzanna Slaughter PA-C [address] [place] [phone] Health Maintenance Due Date Last [...] Address T ype Group Dates SAMMY CHRISTIANSON [id number] 2019-Pres P O BOX Medic aid HEALTHCARE - HEALTHCARE [place] [id number] MANAGED MEDICAID [place] documented as of this encounter
--- OUTSIDE RECORDS SUMMARY | 2020-03-05 19:39 | XMS REPORT | Summary of Care ---
:1995 Author Organization [facility] Address [address] [place] [address] Care Team Providers Name Role Phone Jessica Baker Insurance Hmo Jm Quiñonez MD Primary Care Provider Reason for Visit Reason Comments Assessment Encounter Details Date Type Department Care Team Description 01/05/2020 Telephone [facility] Women's Tamy Slaughter PA-C Assessment Healthcare- [address] 146 [facility] [address] [place] [address] [place] [address] [phone] Allergies Active Allergy Reactions Severity Noted Date [...] advised that patient should be seen at [facility] since that is where the medication was prescribed. Patient stated that she called [facility] and they blew her off and told her they did not have anything available. RN offered patient a telehealth appointment for today, patient accepted. Call transferred to [facility] for appointment. Telehealth Appointment scheduled for today [...] Obstetrics & Gynecology Shelia Quiñonez MD Arrived [address] [place] [address] 775 15 [phone] 2020 Office Visit Obstetrics & Gynecology Suzanna Slaughter PA-C [address] [place] [address] [phone] Health Maintenance Due Date Last Done Comments [...] Address T e Group Dates SAMMY CHRISTIANSON [id number] 2019-Pres Alisson Manzano BOX Medic aid HEALTHCARE - HEALTHCARE [place] [id number] MANAGED MEDICAID [place] documented as of this encounter
--- OUTSIDE RECORDS SUMMARY | 2020-03-05 19:39 | XMS REPORT | Summary of Care ---
:1995 Author Organization [facility] Address [address] [place] [address] Care Team Providers Name Role Phone Jessica Baker Insurance Hmo Jm Quiñonez MD Primary Care Provider Encounter Details Date Type Department Care Team Description 01/13/2020 Patient Secure [facility] Lopez Hitchcock M D Nephrology- [address], [address] 6th Floor [phone] [place] [address] Allergies Active Allergy Reactions [...] Visit Obstetrics & Gynecology Shelia Quiñonez MD [address] [place] [address] 775 15 2020 Office Visit Obstetrics & Gynecology Suzanna Slaughter PA-C [address] [place] [phone] Health Maintenance Due Date Last Done Comments [...] / Subscriber ID Effective Phone Address T [facility] Group Dates SAMMY CHRISTIANSON [id number] 2019-Pres P O BOX Medic aid HEALTHCARE - HEALTHCARE [place] [id number] MANAGED MEDICAID [place] documented as of this encounter
--- OUTSIDE RECORDS SUMMARY | 2020-03-05 19:40 | XMS REPORT | Summary of Care ---
:1995 Author Organization [facility] - Health Address [address] [place] [address] Care Team Providers Name Role Phone Jessica Baker Insurance Hmo Jm Quiñonez MD Primary Care Provider Encounter Details Date Type Department Care Team Description 01/23/2020 Orders Only [facility] Doctor Unassigned, No 301 [facility] Name [place] [id number] [place] [phone] Allergies Active Allergy Reactions Severity Noted Date [...] Date Type Specialty Care Team Description 01/23/2020 Sales Marketing Visit Phlebotomy [place], Adc Lab Main 02/08/2020 Telemedicine Visit Obstetrics & Gynecology Shelia Quiñonez MD [address] [place] [address] 775 15 [phone] 2020 Office Visit Obstetrics & Gynecology Suzanna Slaughter PA-C [address] [place] [address] [phone] Health Maintenance Due Date Last Done Comments [...] / Subscriber ID Effective Phone Address T [facility] Group Dates SAMMY CHRISTIANSON [id number] 2019-Pres P O BOX Medic aid HEALTHCARE - HEALTHCARE [place] [id number] MANAGED MEDICAID [place] documented as of this encounter
--- OUTSIDE RECORDS SUMMARY | 2020-03-05 19:40 | XMS REPORT | Summary of Care ---
:1995 Author Organization [facility] Address [address] [place] [address] Care Team Providers Name Role Phone Jessica Baker Insurance Hmo Jm Quiñonez MD Primary Care Provider Reason for Visit Reason Comments Flank Pain Encounter Details Date Type Department Care Team Description 01/14/2020 Telemedicine Visit [facility] Lopez Hitchcock M D Pain (Primary Dx); Nephrology- [address] [place] [address] Kidney stones [facility] [address] [place] [address] Drive, 6th [place] [address] Allergies Active Allergy Reactions Severity [...] (AVS ) documentation will be available through Raise for this encounter. A total of 15 minutes was spent on the Video Call, chart review, and coordination of care with specialists. Lopez Hitchcock MD documented in this encounter Plan of Treatment Date Type Specialty Care Team Description 02/08/2020 Telemedicine Visit Obstetrics & Gynecology Shelia Quiñonez MD [address] [place] [address] 775 15 2020 Office Visit Obstetrics & Gynecology Suzanna Slaughter PA-C [address] [place] [phone] Name Type Priority Associated Diagnoses Order [...] Address T e Group Dates SAMMY CHRISTIANSON [id number] 2019-Pres Alisson RYAN Medic aid HEALTHCARE - HEALTHCARE [place] [id number] MANAGED MEDICAID [place] documented as of this encounter
--- OUTSIDE RECORDS SUMMARY | 2020-03-05 19:40 | XMS REPORT | Summary of Care ---
:1995 Author Organization [facility] Address [address] [place] [address] Care Team Providers Name Role Phone Jessica Baker Insurance Hmo Jm Quiñonez MD Primary Care Provider Reason for Visit Reason Comments LAB WORK Auth/Cert Status Reason Specialty Diagnoses / Procedures Referred By Jessica ontact Referred To Contact Phlebotomy Diagnoses LAB DROP URINE Adc Pob Lab Draw Professional O ffice Building [address] [place] [address] , [address] [place] [address] Phone: Fax: Encounter Details Date Type Department Care Team Description 01/23/2020 Steel Shot Header Operator Visit [facility] Lopez Hitchcock MD [address] [place] [phone] Pain; Professional Office Pob, Adc Lab Main Kidney stones Building Phlebotomy Lab Professional Office Building [address] [place] [address] , [address] [place] [address] Allergies Active Allergy Reactions Severity Noted [...] accordingly. The [facility] lab order on today: 24 hour urine 1 Random urine Stool Swab Other documented in this encounter Plan of Treatment Date Type Specialty Care Team Description 02/08/2020 Telemedicine Visit Obstetrics & Gynecology Shelia Quiñonez MD [address] [place] [address] DRPilar [address] [place], [place] 7[address] 2020 Office Visit Obstetrics & Gynecology Suzanna Slaughter PA-C [address] [facility] [address] [place] [address] Name Type Priority Associated Diagnoses [...] Address T ype Group Dates CHRISTIANSON CHRISTIANSON [id number] 2019-Pres P O BOX Medic aid HEALTHCARE - [place]ALTHCARE [place] [id number] MANAGED MEDICAID [place] documented as of this encounter
--- OUTSIDE RECORDS SUMMARY | 2020-03-05 19:40 | XMS REPORT | Summary of Care ---
:1995 Author Organization [facility] Address [address] [place] [address] Care Team Providers Name Role Phone Jessica Baker Insurance Hmo Jm Quiñonez MD Primary Care Provider Encounter Details Date Type Department Care Team Description 01/13/2020 Patient Secure [facility] Lopez Hitchcock M D Nephrology- [address], [address] 6th Floor [phone] [place] [address] Allergies Active Allergy Reactions Severity [...] Za Enriquez RN - 01/15/2020 11:11 AM [phone] (home) Left message to call back documented in this encounter Plan of Treatment Date Type Specialty Care Team Description 01/21/2020 Reclamation Furnace Operator Visit Phlebotomy 2, Adc Lab 02/08/2020 Telemedicine Visit Obstetrics & Gynecology Shelia Quiñonez MD [address] [place] [address] DR. Son [place] [phone] 2020 Office Visit Obstetrics & Gynecology Suzanna Slaughter PA-C [address] [place] [address] Health Maintenance Due Date Last Done [...] [facility] Group Dates SAMMY CHRISTIANSON [id number] 2019-Pres P O BOX Medic aid HEALTHCARE - HEALTHCARE [place] [id number] MANAGED MEDICAID [place] documented as of this encounter
--- OUTSIDE RECORDS SUMMARY | 2020-03-05 19:41 | XMS REPORT | Summary of Care ---
:1995 Author Organization [facility] Address [address] [place] [address] Care Team Providers Name Role Phone Jessica Baker Insurance Hmo Jm Quiñonez MD Primary Care Provider Encounter Details Date Type Department Care Team Description 02/04/2020 Letter (Out) [facility] Brigitte Acevedo RN [address] [place] [phone] Allergies Active Allergy Reactions Severity [...] Visit Obstetrics & Gynecology Shelia Quiñonez MD [address] [place] [address] DR. Son [place], [facility]5 15 [phone] 2020 Office Visit Obstetrics & Gynecology Suzanna Slaughter PA-C [address] [place] [phone] Health Maintenance Due Date Last Done [...] / Subscriber ID Effective Phone Address T [facility] Group Dates SAMMY CHRISTIANSON [id number] 2019-Pres Alisson RYAN Medic aid HEALTHCARE - HEALTHCARE ent [id number] MANAGED MEDICAID [place] documented as of this encounter
--- OUTSIDE RECORDS SUMMARY | 2020-03-05 19:41 | XMS REPORT | Summary of Care ---
:1995 Author Organization [facility] - [facility] Address [address] [place] [address] Care Team Providers Name Role Phone Jessica Baker Insurance Hmo Jm Quiñonez MD Primary Care Provider Encounter Details Date Type Department Care Team Description 02/05/2020 Patient Secure [facility] [facility] [address], [address] [place] [address] Floor [phone] [place] [address] Allergies Active Allergy Reactions Severity [...] Visit Obstetrics & Gynecology Shelia Quiñonez MD [address] [place] [address] DRPilar [address] [place], [place] [address] 2020 Office Visit Obstetrics & Gynecology Suzanna Slaughter PA-C 146 [facility] 208 [place] [phone] Health Maintenance Due Date Last Done Comments [...] Address T e Group Dates SAMMY CHRISTIANSON [id number] 2019-Pres P O BOX Medic aid HEALTHCARE - HEALTHCARE ent [id number] MANAGED MEDICAID [place] documented as of this encounter
--- OUTSIDE RECORDS SUMMARY | 2020-03-05 19:41 | XMS REPORT | Summary of Care ---
:1995 Author Organization [facility] Address [address] [place] [address] Care Team Providers Name Role Phone Jessica Baker Insurance Hmo Jm Quiñonez MD Primary Care Provider Reason for Visit Reason Comments Results lab Encounter Details Date Type Department Care Team Description 01/25/2020 Telephone [facility] Nephrology- Keyonna Hitchcock MD Results (lab) [address] [address] [place] [address], [address] [place] [address] [place] [address] Allergies Active Allergy Reactions [...] amount to 1480 was in the specimen [phone] (home) Patient reports just a bit shy of line Reported results to Lab elephone Encounter - Skylar Ham Kassandra - 01/26/2020 3:20 PM CDTAngel Nelia Dyson is a 24 year old female is calling for lab results. Please call patient [phone]. Thank you. elephone Encounter - Remedios Nettles - 01/25/2020 2:09 PM CDTPt called requesting her lab results done on 01/22. documented in this encounter Plan of Treatment Date Type Specialty Care Team Description 02/08/2020 Telemedicine Visit Obstetrics & Gynecology Shelia Quiñonez MD [address] [place] [address] DRPilar [facility] 208 [place], [place] [address] 2020 Office Visit Obstetrics & Gynecology Suzanna Slaughter PA-C [address] [place] [phone] Health Maintenance Due Date Last Done Comments [...] T ype Group Dates CHRISTIANSONMARIA LUZ CHRISTIANSON [id number] 2019-Pres P O BOX Medic aid HEALTHCARE - HEALTHCARE ent [id number] MANAGED MEDICAID [place] documented as of this encounter
--- OUTSIDE RECORDS SUMMARY | 2020-03-05 19:41 | XMS REPORT | Summary of Care ---
:1995 Author Organization [facility] - [address] [address] Care Team Providers Name Role Phone Jessica Baker Insurance Hmo Jm Quiñonez MD Primary Care Provider Reason for Visit Reason Comments Lab Results Encounter Details Date Type Department Care Team Description 02/02/2020 Telephone [facility] Nephrology- Keyonna Hitchcock MD Lab Results [address] [address] [place] [address] [place] [address] Allergies Active Allergy Reactions [...] Visit Obstetrics & Gynecology Shelia Quiñonez MD [address] [place] [address] 775 15 2020 Office Visit Obstetrics & Gynecology Suzanna Slaughter PA-C [address] [place] [phone] Health Maintenance Due Date Last Done [...] Address T e Group Dates SAMMY BAZANINA [id number] 2019-Pres P O BOX Medic aid HEALTHCARE - HEALTHCARE [place] [id number] MANAGED MEDICAID [place] documented as of this encounter
--- OUTSIDE RECORDS SUMMARY | 2020-03-05 19:41 | XMS REPORT | Summary of Care ---
:1995 Author Organization [facility] Address [address] [place] [address] Care Team Providers Name Role Phone Jessica Baker Insurance Hmo Jm Quiñonez MD Primary Care Provider Reason for Visit Reason Comments Refill Request Encounter Details Date Type Department Care Team Description 02/04/[address] [facility] Nephrology- Keyonna Hitchcock MD Refill Request [address] [phone] [place] [address] [place] [address] Allergies Active Allergy Reactions [...] soon as possible. [facility] [address] [place] [address] elephone Encounter - Za Enriquez RN - 02/04/2020 3:[address] Hitchcock please call in tramadol under Dr. Bill [facility] [address] [place] [address] Called into pharmacy traMADoL (ULTRAM) 50 mg tablet 15 tablet 1 02/04/2020 02/11/2020 -- Sig: Take 1 tablet by mouth every 6 (six) hours as needed for Pain (scale 4-6) for up to 7 days. Indications: acute pain Class: Normal Route: Oral Order: [id number] documented in this encounter Plan of Treatment Date Type Specialty Care Team Description 02/08/2020 Telemedicine Visit Obstetrics & Gynecology Shelia Quiñonez MD [address] [place] [address] [place] [address] 775 15 [phone] 2020 Office Visit Obstetrics & Gynecology Suzanna Slaughter PA-C [address] [place] [address] [phone] Health Maintenance Due Date Last Done Comments [...] Address T e Group Dates SAMMY CHRISTIANSON [id number] 2019-Pres P O BOX Medic aid HEALTHCARE - HEALTHCARE [place] [id number] MANAGED MEDICAID [place] documented as of this encounter
--- OUTSIDE RECORDS SUMMARY | 2020-03-05 19:41 | XMS REPORT | Summary of Care ---
:1995 Author Organization [facility] Address [address] [place] [address] Care Team Providers Name Role Phone Jessica Baker Insurance Hmo Jm Quiñonez MD Primary Care Provider Reason for Visit Reason Comments Fever Cough Auth/Cert Status Reason Specialty Diagnoses / Referred By Referred To Procedures Contact Contact Emergency Medicine Adc Em ergency Dept [address] [place] [address] Fax: Encounter Details Date Type Department Care Team Description 02/03/2020 Emergency ADC-Emergency Kaycee Méndez, Suspected Covid-19 Virus Infection (Primary Dx); Department PAC Cough; [address] [place] [address] Dr valdovinos [address] [facility] Fever, unspecified fever cause; [place] [address] MARIA LUISA 5200 Viral URI with cough [phone] [place] [address] Allergies Active Allergy Reactions Severity [...] Body Mass Index 24.56 07/18/2019 1:13 AM HOISTER documented in this encounter Discharge Instructions AttachmentsThe following attachments cannot be sent through Care Everywhere. Coronavirus Disease 2019: Caring for Yourself and Others ([place])URI, Viral, No Abx (Adult) ([place])documented in this encounter ED Notes Ileana De León RN - 02/03/2020 4:09 PM CDT24 year old female coming to ER for fever and cough for 4 days. 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 documented in this [...] Obstetrics & Gynecology Shelia Quiñonez MD [address] [place] [address] DR. [facility] 208 [place], [place] [address] 2020 Office Visit Obstetrics & Gynecology Suzanna Slaughter PA-C [address] [place] [address] 208 [place] [phone] Name Type Priority Associated Diagnoses Date/Ti me [...] Pathologist Sig nature Streptococcus pyogenes Negative Negative [facility] (group A) antigen [facility] Specimen Swab - THROAT Performing Organization Address City/State/Zipcode Phone Number [facility] CLIA: [id number] [place] [address] documented in this [...] Address T ype Group Dates SAMMY CHRISTIANSON [id number] 2019-Pres P O BOX Medic aid HEALTHCARE - HEALTHCARE [place] [id number] MANAGED MEDICAID [place] documented as of this encounter
--- OUTSIDE RECORDS SUMMARY | 2020-03-05 19:41 | XMS REPORT | Summary of Care ---
:1995 Author Organization [facility] Address [address] [place] [address] Care Team Providers Name Role Phone Jessica Baker Insurance Hmo Jm Quiñonez MD Primary Care Provider Encounter Details Date Type Department Care Team Description 01/13/2020 Patient Secure [place] [facility] Lopez Hitchcock M D Nephrology- [address], [address] 6th Floor [phone] [place] [address] Allergies Active Allergy Reactions Severity [...] Za Enriquez RN - 01/15/2020 11:11 AM [phone] (home) Left message to call back documented in this encounter Plan of Treatment Date Type Specialty Care Team Description 02/08/2020 Telemedicine Visit Obstetrics & Gynecology Shelia Quiñonez MD [address] [place] [address] DR. [place], [place] [address] [phone] 2020 Office Visit Obstetrics & Gynecology Suzanna Slaughter PA-C [address] [place] [phone] Health Maintenance Due Date Last Done Comments [...] Address T e Group Dates SAMMY CHRISTIANSON [id number] 2019-Pres P O BOX Medic aid HEALTHCARE - HEALTHCARE ent [id number] MANAGED MEDICAID [place] documented as of this encounter
--- OUTSIDE RECORDS SUMMARY | 2020-03-05 19:42 | XMS REPORT | Summary of Care ---
:1995 Author Organization [facility] Address [address] [place] [address] Care Team Providers Name Role Phone Baker, Jessica Insurance Hmo Jm Quiñonez MD Primary Care Provider Reason for Visit Reason Comments F/U Encounter Details Date Type Department Care Team Description 02/08/2020 Telemedicine Visit [facility] Shelia Quiñonez MD Insomnia, unspecified type (Primary Dx); Healthcare- [address] [facility] Anxiety di sorder, unspecified type; Maurice CORNELL Other depression [address] [facility] [address], [address] [place], [place] [address] Allergies Active Allergy Reactions Severity Noted [...] is the AVS which is accessible through [employer]. Patient/guardian/family verbalized understanding and agrees to the plan of care. Barriers to care:None. Ability to manage care: Good. If applicable, the [place] [employer] database was accessed to review any controlled substance prescription claims data. If the patient is taking prescribed medications, the [employer] prescription claims data in [employer] was reviewed to assess patient compliance with [...] Visit Obstetrics & Gynecology Young Quiñonez MD [address] [place] [address] [place] [address] 15 [phone] Health Maintenance Due Date Last Done Comments [...] Address T ype Group Dates SAMMY CHRISTIANSON [id number] 2019-Pres P O BOX Medic aid HEALTHCARE [place]ARE [place] [id number] MANAGED MEDICAID [place] documented as of this encounter
--- OUTSIDE RECORDS SUMMARY | 2020-03-05 19:42 | XMS REPORT | Summary of Care ---
:1995 Author Organization [facility] Address [address] [place] [address] Care Team Providers Name Role Phone Jessica Baker Insurance Hmo Jm Quiñonez MD Primary Care Provider Reason for Visit Reason Comments Flank Pain Encounter Details Date Type Department Care Team Description 02/04/2020 Telemedicine Visit [facility] Lopez Hitchcock M D Kidney stones Nephrology- [address] [place] [address] (Primary Dx) [facility] [phone] [place] [address] Drive, 6th [place] [address] Allergies Active Allergy Reactions Severity [...] (AVS ) documentation will be available through [employer] for this encounter. A total of 15 minutes was spent on the Video Call, chart review, and coordination of care with specialists. Lopez Hitchcock MD documented in this encounter Plan of Treatment Date Type Specialty Care Team Description 08/11/2020 Office Visit Obstetrics & Gynecology Young Quiñonez MD [address] [place] [address] [place] [address] 15 [phone] Health Maintenance Due Date Last Done Comments [...] Address T ype Group Dates SAMMY CHRISTIANSON [id number] 2019-Pres P O BOX Medic aid HEALTHCARE - [place]CARE [place] [id number] MANAGED MEDICAID [place] documented as of this encounter
--- OUTSIDE RECORDS SUMMARY | 2020-03-05 19:42 | XMS REPORT | Summary of Care ---
:1995 Author Organization [address] [address] Care Team Providers Name Role Phone Jessica Baker Insurance Hmo Jm Quiñonez MD Primary Care Provider Reason for Visit Reason Onset Date Comments Refill Request 02/11/2020 Encounter Details Date Type Department Care Team Description 02/11/2020 Refill [facility] Nephrology- Keyonna Hitchcock MD Refill Request [address] [phone] [place] [address] [place] [address] Allergies Active Allergy Reactions [...] Obstetrics & Gynecology Young Quiñonez MD [address] [place] [address] [place] [address] 15 [phone] Health Maintenance Due Date Last Done Comments [...] Address T e Group Dates SAMMY CHRISTIANSON [id number] 2019-Pres P O BOX Medic aid HEALTHCARE - HEALTHCARE [place] [id number] MANAGED MEDICAID [place] documented as of this encounter
--- OUTSIDE RECORDS SUMMARY | 2020-03-05 19:43 | XMS REPORT | Summary of Care ---
:1995 Author Organization [facility] Address [address] [place] [address] Care Team Providers Name Role Phone Jessica Baker Insurance Hmo Jm Quiñonez MD Primary Care Provider Encounter Details Date Type Department Care Team Description 02/05/2020 Patient Secure [facility] [address], [facility] 6th Floor [phone] [place] [address] Allergies Active Allergy Reactions [...] Papanicolaou smear negative within last 12 mo [facility] 06/19/2019 Overview: 12/2018 NIL pap , [...] Visit Obstetrics & Gynecology Young Quiñonez MD [address] [place] [address] [address]. [address] [place], [place] [address] 15 [phone] Health Maintenance Due Date Last Done Comments [...] Address T ype Group Dates SAMMY CHRISTIANSON [id number] 2019-Pres P O BOX Medic aid HEALTHCARE - [place]CARE [place] [id number] MANAGED MEDICAID [place] documented as of this encounter
--- OUTSIDE RECORDS SUMMARY | 2020-03-05 19:43 | XMS REPORT | Summary of Care ---
:1995 Author Organization [facility] Address [address] [place] [address] Care Team Providers Name Role Phone Jessica Baker Insurance Hmo Jm Quiñonez MD Primary Care Provider Encounter Details Date Type Department Care Team Description 02/17/2020 Patient Secure [facility] Lopez Hitchcock M D Nephrology-[address] [facility] [address], [phone] Entrance B [phone] [place] [address] Allergies Active Allergy Reactions Severity [...] Visit Obstetrics & Gynecology Young Quiñonez MD [address] [place] [address] [place] [address] 15 [phone] Health Maintenance Due Date Last Done Comments [...] Address T ype Group Dates SAMMY CHRISTIANSON [id number] 2019-Pres P O BOX Medic aid HEALTHCARE - [place]CARE [place] [id number] MANAGED MEDICAID [place] documented as of this encounter
--- OUTSIDE RECORDS SUMMARY | 2020-03-05 19:43 | XMS REPORT | Summary of Care ---
:1995 Author Organization [facility] Address [address] [place] [address] Care Team Providers Name Role Phone Jessica Baker Insurance Hmo Jm Quiñonez MD Primary Care Provider Encounter Details Date Type Department Care Team Description 02/17/2020 Patient Secure [facility] Lopez Hitchcock M D Nephrology-[address] [facility] Ctr [address], [phone] Entrance B [phone] [place] [address] Allergies Active Allergy Reactions Severity [...] Telemedicine Visit Nephrology Lopez Hitchcock M D [address] [place] [phone] 08/11/2020 Office Visit Obstetrics & QuiñonezShelia M D Gynecology [address] [place] [address] DR. Son [place], [place] [address] Health Maintenance Due Date [...] Address T ype Group Dates SAMMY CHRISTIANSON [id number] 2019-Pres Alisson Manzano BOX Medic aid HEALTHCARE - HEALTHCARE [place] [id number] MANAGED MEDICAID [place] documented as of this encounter
--- OUTSIDE RECORDS SUMMARY | 2020-03-05 19:44 | XMS REPORT | Summary of Care ---
:[address] [facility] Address [address] [place] [address] Care Team Providers Name Role Phone Jessica Baker Insurance Hmo Jm Quiñonez MD Primary Care Provider Encounter Details Date Type Department Care Team Description 2020 Patient Secure [facility] Lopez Hitchcock M D Nephrology- [address], [address] [place] [address] Floor [phone] [place] [address] Allergies Active Allergy Reactions Severity [...] Telemedicine Visit Nephrology Lopez Hitchcock M D [address] [place] [phone] 08/11/2020 Office Visit Obstetrics & QuiñonezShelia M D Gynecology [address] [place] [address] [address] Health Maintenance Due Date Last Done [...] Address T e Group Dates SAMMY CHRISTIANSON [id number] 2019-Pres P O BOX Medic aid HEALTHCARE - HEALTHCARE [place] [id number] MANAGED MEDICAID [place] documented as of this encounter
--- OUTSIDE RECORDS SUMMARY | 2020-03-05 19:44 | XMS REPORT | Summary of Care ---
:1995 Author Organization [facility] Address [address] [place] [address] Care Team Providers Name Role Phone Jessica Baker Insurance Hmo Jm Quiñonez MD Primary Care Provider Reason for Visit Reason Comments Rx Concern/Question Encounter Details Date Type Department Care Team Description 2020 Telephone [facility] Lopez Hitchcock MD Rx Concern/Question Nephrology- [address], [address] [place] [address] Floor [phone] [place] [address] Allergies Active Allergy Reactions Severity [...] 2020 12:25 PM CDTScript[facility] were [facility] to [facility]. Will resend to [facility] Telephone Encounter - Skylar Ham - 2020 11:10 AM CDTAngel Nelia Dyson is a 24 year old female is calling [facility] has not received Tramadol and hydroCHLOROthiazide. Thank you. [facility] [address] [place] [address] documented in this encounter Plan of Treatment Date Type Specialty Care Team Description 02/25/2020 Telemedicine Visit Nephrology Lopez Hitchcock M D [address] [place] [phone] 08/11/2020 Office Visit Obstetrics & QuiñonezShelia M D Gynecology [address] [place] [address] DR. [place], [place] [address] Health Maintenance Due Date [...] / Subscriber ID Effective Phone Address [facility] Group Dates SAMMY CHRISTIANSON [id number] 2019-Pres P O BOX Medic aid HEALTHCARE - HEALTHCARE [place] [id number] MANAGED MEDICAID [place] documented as of this encounter
--- OUTSIDE RECORDS SUMMARY | 2020-03-05 19:44 | XMS REPORT | Summary of Care ---
:1995 Author Organization [facility] Address [address] [place] [address] Care Team Providers Name Role Phone Jessica Baker Insurance Hmo Jm Quiñonez MD Primary Care Provider Reason for Visit Reason Onset Date Comments Refill Request 2020 Encounter Details Date Type Department Care Team Description 2020 Refill [facility] Lopez Hitchcock MD Refill Request Nephrology-[address] [place] [address] 1633 [facility], Entrance B [place] [phone] Allergies Active Allergy Reactions Severity Noted [...] Telemedicine Visit Nephrology Lopez Hitchcock M D [address] [place] [phone] 08/11/2020 Office Visit Obstetrics & Quiñonez, Munir Johnson Gynecology [address] [place] [address] DR. [address] [place] [address] Health Maintenance Due Date Last [...] Address T ype Group Dates SAMMY BAZANINA [id number] 2019-Pres P O BOX Medic aid HEALTHCARE - HEALTHCARE [place] [id number] MANAGED MEDICAID [place] documented as of this encounter
--- OUTSIDE RECORDS SUMMARY | 2020-03-05 19:44 | XMS REPORT | Summary of Care ---
:1995 Author Organization [facility] Address [address] [place] [address] Care Team Providers Name Role Phone Jessica Baker Insurance Hmo Jm Quiñonez MD Primary Care Provider Encounter Details Date Type Department Care Team Description 2020 Patient Secure [facility] Lopez Hitchcock M D Nephrology- [address], [address] [place] [address] Floor [phone] [place] [address] Allergies Active Allergy Reactions Severity [...] Telemedicine Visit Nephrology Lopez Hitchcock M D [address] [place] [phone] 08/11/2020 Office Visit Obstetrics & Quiñonez, Munir Johnson Gynecology [address] [place] [address] DR. Son [place], [place] [address] Health Maintenance Due Date [...] T ype Group Dates CHRISTIANSONMARIA LUZ CHRISTIANSON [id number] 2019-Pres P O BOX Medic aid HEALTHCARE - [place]ALTHCARE [place] [id number] MANAGED MEDICAID [place] documented as of this encounter
--- OUTSIDE RECORDS SUMMARY | 2020-03-05 19:44 | XMS REPORT | Summary of Care ---
:1995 Author Organization [facility] Address [address] [place] [address] Care Team Providers Name Role Phone Jessica Baker Insurance Hmo Jm Quiñonez MD Primary Care Provider Encounter Details Date Type Department Care Team Description 2020 Patient Secure [facility] Lopez Hitchcock M D Nephrology- [address], [address] [place] [address] Floor [phone] [place] [address] Allergies Active Allergy Reactions Severity [...] Telemedicine Visit Nephrology Lopez Hitchcock M D [address] [place] [phone] 08/11/2020 Office Visit Obstetrics & Quiñonez, Munir Johnson Gynecology [address] [place] [address] DR. Son [place], [place] [address] Health Maintenance Due Date [...] T ype Group Dates CHRISTIANSONMARIA LUZ CHRISTIANSON [id number] 2019-Pres P O BOX Medic aid HEALTHCARE - HEALTHCARE [place] [id number] MANAGED MEDICAID [place] documented as of this encounter
--- OUTSIDE RECORDS SUMMARY | 2020-03-05 19:45 | XMS REPORT | Summary of Care ---
:1995 Author Organization [facility] Address [address] [place] [address] Care Team Providers Name Role Phone Jessica Baker Insurance Hmo Jm Quiñonez MD Primary Care Provider Reason for Visit Reason Comments Rx Concern/Question Tramadol Encounter Details Date Type Department Care Team Description [address] [facility] Lopez Hitchcock MD Rx Concern/Question Nephrology- [address] (Tramadol) [place] [address] [place], [place] [phone] Drive, 6th Floor [phone] [place] [address] Allergies Active Allergy Reactions Severity [...] previous US and CT Referral to [employer] She is established with Dr. Quiñonez. Routed message to Dr. Quiñonez. Telephone Encounter - Remedios Nettles - 2020 1:52 PM CDTPt called stating her Pharmacy called patient and told her that her tramadol. States they need the diagnosis codes. documented in this encounter Plan of Treatment Date Type Specialty Care Team Description 02/25/2020 Telemedicine Visit Nephrology Lopez Hitchcock M D [address] [place] [phone] 08/11/2020 Office Visit Obstetrics & Shelia Quiñonez M D Gynecology [address] [place] [address] [place] [address] 15 [phone] Health Maintenance Due Date Last Done Comments [...] Subscriber ID Effective Phone Address T [facility] Group Dates SAMMY CHRISTIANSON [id number] 2019-Pres P O BOX Medic aid HEALTHCARE - HEALTHCARE [place] [id number] MANAGED MEDICAID [place] documented as of this encounter
--- OUTSIDE RECORDS SUMMARY | 2020-03-05 19:45 | XMS REPORT | Summary of Care ---
:1995 Author Organization [facility] Address [address] [place] [address] Care Team Providers Name Role Phone Jessica Baker Insurance Hmo Jm Quiñonez MD Primary Care Provider Encounter Details Date Type Department Care Team Description 02/28/2020 Orders Only [facility] Doctor Unassigned, No 301 [facility] [place] [address] 301 [place] [phone] Allergies Active Allergy Reactions Severity Noted Date Comments Metoclopramide Hcl Anxiety 07/12/2019 Patient s ays she gets figity, angry and mean documented as of this encounter (statuses as of 02/28/2020) Medications Medication Sig Dispensed Refills Start Date [...] as of this encounter (statuses as of 02/28/2020) Active Problems Problem Noted Date Anxiety disorder, unspecified type 01/05/2020 Insomnia, unspecified type 01/05/2020 Other depression 08/13/2019 Cervical Papanicolaou smear negative within last 12 mo [facility] 06/19/2019 Overview: 12/2018 NIL pap , see scanned records documented as of this encounter (statuses as of 02/28/2020) Resolved Problems Problem Noted Date Resolved Date [...] as of this encounter (statuses as of 02/28/2020) Immunizations Name Administration Dates Next Due Influenza [...] Visit Obstetrics & Gynecology Young Quiñonez MD [address] [place] [address] DR. Son [place], [place] [address] [phone] Health Maintenance Due Date Last Done Comments [...] Associated Diagnosis Comme nts CONSENT/REFUSAL FOR Routine 02/28/2020 7:21 PM CDT DIAGNOSIS AND TREATMENT documented in this encounter Results Not on filedocumented in this encounter Insurance Payer Benefit Plan / Subscriber ID Effective Phone Address T e Group Dates SAMMY CHRISTIANSON [id number] 2019-Pres P O BOX Medic aid HEALTHCARE - HEALTHCARE ent [id number] MANAGED MEDICAID [place] documented as of this encounter
--- OUTSIDE RECORDS SUMMARY | 2020-03-05 19:45 | XMS REPORT | Summary of Care ---
:1995 Author Organization [facility] Address [address] [place] [address] Care Team Providers Name Role Phone Jessica Baker Insurance Hmo Jm Quiñonez MD Primary Care Provider Reason for Visit Reason Comments Kidney Problem Encounter Details Date Type Department Care Team Description 02/25/2020 Telemedicine Visit [facility] Lopez Hitchcock M D Pain (Primary Dx) Nephrology- [address] [place] [address] [place], [place] [phone] Drive, 6th Floor [phone] [place] [address] Allergies Active Allergy Reactions Severity [...] (AVS ) documentation will be available through [employer] for this encounter. A total of 15 minutes was spent on the Video Call, chart review, and coordination of care with specialists. Lopez Hitchcock MD documented in this encounter Plan of Treatment Date Type Specialty Care Team Description 08/11/2020 Office Visit Obstetrics & Gynecology Young Quiñonez MD [address] [place] [address] [address] [phone] Health Maintenance Due Date Last Done Comments [...] Address T e Group Dates SAMMY CHRISTIANSON [id number] 2019-Pres Alisson RYAN Medic aid HEALTHCARE - HEALTHCARE ent [id number] MANAGED MEDICAID [place] documented as of this encounter
--- OUTSIDE RECORDS SUMMARY | 2020-03-05 19:46 | XMS REPORT | Summary of Care ---
:1995 Author Organization [facility] Address [address] [place] [address] Care Team Providers Name Role Phone Jessica Baker Insurance Hmo Jm Quiñonez MD Primary Care Provider Reason for Referral MRI/CAT Scan (STAT) Status Reason Specialty Diagnoses / Referred By Referred To Procedures Contact Contact New Request Diagnostic Diagnoses Flank pain Acute bilateral low back pain without sciatica Omari Hurst, Radiology Procedures CT ABDOMEN PELVIS WO CONTRAST [address] [address] Reason for Visit Reason Comments Back Pain Auth/Cert Status Reason Specialty Diagnoses / Referred By Referred To Procedures Contact Contact Emergency Medicine [facility] [address] [place] [address] Fax: Encounter Details Date Type Department Care Team Description 02/28/2020 Emergency [facility] Andreia Norton , [address] [address] [phone] Flank pain (Primary Dx); Department Omari Hurst, [address] [address] Acute bilateral low back pain without sc iatica [address] [place], [place] [address] Allergies Active Allergy Reactions Severity Noted Date [...] tabletIndications: Kidney tablets by stones mouth daily. ketorolac 10 mg Take 1 tablet 20 tablet 0 02/28/2020 Active tabletIndications: Flank by mouth every pain, Acute bilateral low 6 (six) hours back pain without as needed for sciatica Pain (scale 7-10). cyclobenzaprine 10 mg Take 1 tablet 20 tablet 0 02/28/2020 Active tabletIndications: Flank by mouth 3 pain, Acute bilateral low (three) times back pain without daily as needed sciatica for Muscle Spasms. documented as of this encounter (statuses as [...] been in contact with No / Unsure 02/28/2020 7:24 PM CDT someone who was confirmed or 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 documented as of this encounter Last Filed Vital Signs Vital Sign Reading Time Taken Comments Blood Pressure 112/83 02/28/2020 9:33 PM CDT Pulse 71 02/28/2020 9:33 PM CDT Temperature 37.2 C (98.9 F) 02/28/2020 9:33 PM CDT Respiratory Rate 17 02/28/2020 9:33 PM CDT Oxygen Saturation 100% 02/28/2020 9:33 PM CDT Inhaled Oxygen Concentration - - Weight 59 kg (130 lb) 02/28/2020 7:28 PM CDT Height 154.9 cm (5' 1") 02/28/2020 7:28 PM CDT Body Mass Index 24.56 02/28/2020 7:28 PM CDT documented in this encounter Discharge Instructions InstructionsPrOmari byrd Dharmesh, GASTROENTEROLOGY TECHNICIAN - 02/28/2020DIAGNOSIS 1. Flank, back pain NO LIFE-THREATENING FINDINGS ON TODAY'S EXAM. RECOMMEND FOLLOW-UP WITH A PRIMARY CARE PROVIDER OR SPECIALIST IN 2-5 DAYS, ESPECIALLY IF NO IMPROVEMENT IN SYMPTOMS. MAY FOLLOW-UP WITH A PROVIDER OF YOUR CHOICE, SUCH : 1. A PHYSICIAN OF YOUR CHOICE 2. [address] [place] [address], [address] [place] [address]; [phone] 3. [facility], [address], [place]; [phone] OR, IF YOU WISH TO FOLLOW-UP WITHIN THE [facility], MAY TRY THESE OPTIONS (CLINIC APPOINTMENTS AVAILABLE ON UKKI-DX-IOKI BASIS): 1. SCHEDULE AN APPOINTMENT ONLINE AT [email or web address] 2. OR CALL THE [facility] AT OR 3. OR CALL YOUR [facility] PHYSICIAN'S OFFICE DIRECTLY IF YOU ARE ALREADY AN ESTABLISHED [facility] PATIENT. RETURN TO ER FOR WORSENING OF SYMPTOMS. AttachmentsThe following attachments cannot be sent through Care Everywhere. Flank Pain, Uncertain Cause (Spanish)Back Pain (Acute or Chronic) (Spanish) documented in this encounter ED Notes Dana Anthony RN - 02/28/2020 7:25 PM CDTCC: Lower back pain after moving crib. Having kidney pain on right side prior to moving crib. Painstarted yesterday PMHx: Kidney stone, PSH:c Section, tubal ligation MEDS:tramadol LMP: 2 days Tetanus: unknown Awake, alert, oriented, resp reg unlabored, skin warm & dry, color appropriate for race, moves all ext without difficulty, amb with out assist Appears in no distress documented in this encounter Miscellaneous Notes ED Nurse Note - Matthieu Salmon RN - 02/28/2020 9:37 PM CDTDischarge teaching given. Two prescription handed over. Patient verbalized understanding. Vitals stable. No acute distress noted. Patient ambulatory. Patient said, patient is going to pick her up documented in this encounter Plan of Treatment Date Type Specialty Care Team Description 08/11/2020 Office Visit Obstetrics & Gynecology Young Quiñonez MD [address] [place] [address] DR. Rowe [address] [place] [phone] Name Type Priority Associated Diagnoses Date/Ti me Urine Culture LAB STAT Flank pain 02/28/2020 8:08 PM CDT Acute bilateral low back antonino n without sciatica Name Type Priority Associated Diagnoses Order S chedule Urine Culture LAB [place] Flank pain [place] for 1 Occurrences Acute bilateral low back sta rting 02/28/2020 until pain without sciatica 2019 Health Maintenance Due Date Last Done Comments [...] Comments Diagnosis CT ABDOMEN PELVIS WO STAT 02/28/2020 8:18 PM Flank p ain Results for this CONTRAST CDT Acute bilateral low procedur e are in back pain without the result s sciatica section. URINALYSIS STAT 02/28/2020 8:08 PM Flank pain Results for this CDT Acute bilateral low procedur e are in back pain without the result s sciatica section. CBC WITH DIFF STAT 02/28/2020 8:08 PM Flank pain Results for this CDT Acute bilateral low procedur e are in back pain without the result s sciatica section. BASIC METABOLIC STAT 02/28/2020 8:08 PM Flank pain Results for this PANEL (NA, K, CL, CDT Acute bilateral low pro cedure are in CO2, GLUCOSE, BUN, back pain without the results CREATININE, CA) sciatica section. POCT TEST [place] 02/28/2020 8:07 PM Flank pa in Results for this CDT Acute bilateral low procedur e are in back pain without the result s sciatica section. documented in this encounter Results CT ABDOMEN PELVIS WO CONTRAST (02/28/2020 8:18 PM CDT) Specimen Impressions Performed At PACS/VR/DOSE Bilateral nonobstructing nephrolithiasis measuring up to 3 mm on the right. No hydronephrosis. Preliminary Report Dictated by Resident: Baylee Marquez I, David Zamora MD., have reviewed this study and agree with the above report. Narrative Performed At EXAM: CT ABDOMEN/PELVIS WITHOUT CONTRAST PACS/VR/DOSE HISTORY: Flank pain, stone disease tegan pected COMPARISON: None. TECHNIQUE AND FINDINGS: Contiguous axial imaging from the level of the lung bases through the proximal thighs was pe rformed without the intravenous administration of contrast. Coronal and sagittal reconstructions were obtained. Auto mA and/or iterative rec onstruction were used to reduce radiation dose. FINDINGS: LOWER THORAX: Dependent atelectasis in t he lingula and middle lobe.. LIVER: No focal hepatic lesions. Cynthia l liver contour. GALLBLADDER AND BILIARY TREE: No biliary ductal dilati on. No gallbladder wall thickening. SPLEEN: No splenomegaly. PANCREAS: No contour deforming masses. ADRENAL GLANDS: No adrenal nodules. KIDNEYS: No hydronephrosis, or masses. M ultiple punctate nonobstructing bilateral nephrolithiasis, measuring up to 3 mm at the right midpole (2:45). PERITONEUM AND RETROPERITONEUM: No free air or fluid. LYMPH NODES: No lymphadenopathy. GI TRACT: No dilation or wall thickening . Normal appendix. PELVIS/BLADDER: The urinary bladder is decompressed. N o radiopaque bladder stone. The uterus and bilateral ovaries are unremarkable. VESSELS: Unremarkable within the limitat ion of noncontrast study. BONES AND SOFT TISSUES: No suspicious ly tic or sclerotic bony lesions. Procedure Note [facility], Radiant Results Inft User - 2019 9:14 PM CDT EXAM: CT ABDOMEN/PELVIS WITHOUT CONTRAST HISTORY: Flank pain, stone disease susp ected COMPARISON: None. TECHNIQUE AND FINDINGS: Contiguous axial imaging from the level of the lung bases through the proximal thighs was pe rformed without the intravenous administration of contrast. Coronal and sagittal reconstructions were obtained. Auto mA and/or iterative verna nstruction were used to reduce radiation dose. FINDINGS: LOWER THORAX: Dependent atelectasis in t he lingula and middle lobe.. LIVER: No focal hepatic lesions. Normal liver contour. GALLBLADDER AND BILIARY TREE: No biliary ductal dilation. No gallbladder wall thickening. SPLEEN: No splenomegaly. PANCREAS: No contour deforming masses. ADRENAL GLANDS: No adrenal nodules. KIDNEYS: No hydronephrosis, or masses. M ultiple punctate nonobstructing bilateral nephrolithiasis, measuring up to 3 mm at the right midpole (2:45). PERITONEUM AND RETROPERITONEUM: No free air or fluid. LYMPH NODES: No lymphadenopathy. GI TRACT: No dilation or wall thickening . Normal appendix. PELVIS/BLADDER: The urinary bladder is d ecompressed. No radiopaque bladder stone. The uterus and bilateral ovaries are unremarkable. VESSELS: Unremarkable within the limitat ion of noncontrast study. BONES AND SOFT TISSUES: No suspicious ly tic or sclerotic bony lesions. IMPRESSION Bilateral nonobstructing nephrolithiasis measuring up to 3 mm on the right. No hydronephrosis. Preliminary Report Dictated by Resident: Baylee Marquez I, David Zamora MD., have reviewed [facility] study and agree with the above report. Performing Organization Address City/State/Zipcode Phone Number PACS/VR/DOSE Urinalysis (02/28/2020 8:08 PM CDT) Pathologist Sig nature APPEARANCE Clear Clear [facility] COLOR Yellow Yellow [facility] PH 6.0 4.8 - 8.0 [facility] SP GRAVITY 1.025 1.003 - 1.030 [facility] GLU U QUAL Normal Normal [facility] BLOOD 2+ (A) Negative [facility] KETONES Negative Negative [facility] PROTEIN Negative Negative [facility] UROBILIN Normal Normal [facility] BILIRUBIN Negative Negative [facility] NITRITE Negative Negative [facility] LEUK ANJELICA Negative Negative [facility] RBC/HPF 10 (H) 0 - 3 HPF [facility] WBC/HPF 2 0 - 5 HPF [facility] BACTERIA Few (A) Negative [facility] MUCOUS Moderate (A) Negative LPF [facility] SQ EPITH 1 HPF [facility] HYAL CAST 1 <=2 LPF [facility] Specimen Urine - URINE, CLEAN CATCH Performing Organization Address City/State/Zipcode Phone Number [facility] CLIA: [id number] [place] [address] Basic Metabolic Panel (NA, K, CL, CO2, GLUCOSE, BUN, CREATININE, CA) (02/28/2020 8:08 PM CDT) Pathologist [facility] nature NA 140 135 - 145 mmol/L [facility] K 3.9 3.5 - 5.0 mmol/L [facility] CL 104 98 - 108 mmol/L [facility] CO2 TOTAL 23 23 - 31 mmol/L [facility] AGAP 13 2 - 16 [facility] BUN 13 7 - 23 mg/dL [facility] GLUCOSE 94 70 - 110 mg/dL [facility] CREATININE 0.83 0.50 - 1.04 [facility] mg/dL [facility] CALCIUM 9.9 8.6 - 10.6 mg/dL [facility] eGFR Calculation 83.8 mL/min/1.73m2 [facility] (Non-) [facility] Y eGFR Calculation 101.5 mL/min/1.73m2 [facility] () [facility] Specimen Blood - VENOUS Narrative Performed At Association of Glomerular Filtration Rate (GFR) [facility] and Staging of Kidney Disease* [...] Address City/State/Zipcode Phone Number [facility] CLIA: [id number] [place], [place] [id number] LAB[address] CBC with Differential (02/28/2020 8:08 PM CDT) Pathologist Sig nature WBC 6.84 4.30 - 11.10 [facility] 10*3/L [facility] RBC 4.73 3.93 - 5.25 [facility] 10*6/L [facility] HGB 13.5 11.6 - 15.0 [facility] g/dL [facility] HCT 40.1 35.7 - 45.2 % [facility] MCV 84.8 80.6 - 95.5 fL [facility] MCH 28.5 25.9 - 32.8 pg [facility] MCHC 33.7 31.6 - 35.1 [facility] g/dL [facility] RDW-SD 38.3 (L) 39.0 - 49.9 fL [facility] RDW-CV 12.5 12.0 - 15.5 % [facility] PLT 382 (H) 166 - 358 [facility] 10*3/L [facility] MPV 10.3 9.5 - 12.9 fL [facility] NRBC/100 WBC 0.0 0.0 - 10.0 /100 [facility] WBCs [facility] NRBC x10^3 <0.01 10*3/L [facility] GRAN MAT (NEUT) % 53.6 % [facility] IMM GRAN % 0.10 % [facility] LYMPH % 37.0 % [facility] MONO % 6.4 % [facility] EOS % 2.6 % [facility] BASO % 0.3 % [facility] GRAN MAT x10^3(ANC) 3.66 1.88 - 7.09 [facility] 10*3/uL [facility] IMM GRAN x10^3 <0.03 0.00 - 0.06 [facility] 10*3/uL [facility] LYMPH x10^3 2.53 1.32 - 3.29 [facility] 10*3/uL [facility] MONO x10^3 0.44 0.33 - 0.92 [facility] 10*3/uL [facility] EOS x10^3 0.18 0.03 - 0.39 [facility] 10*3/uL [facility] BASO x10^3 <0.03 0.01 - 0.07 [facility] 10*3/uL [facility] Specimen Blood - VENOUS Performing Organization Address City/State/Zipcode Phone Number [facility] CLIA: [id number] [place] [address] POCT Test (02/28/2020 8:07 PM CDT) Pathologist Sig nature POCT PREG negative POCT PREG LOT # [id number] POCT PREG TEST DATE 08/10/2021 Specimen Urine - URINE, CLEAN CATCH documented in this encounter Visit Diagnoses Diagnosis Flank pain - Primary Abdominal pain, unspecified site Acute bilateral low back pain without sc iatica documented in this encounter Administered Medications Medication Order MAR Action Action Date Dose Rate Site cyclobenzaprine (FLEXERIL) tablet Given 02/28/2020 9:07 PM CDT 10 mg 10 mg 10 mg, Oral, ONCE, 1 dose, 02/28/20 at 2200, Routine ketorolac (TORADOL) injection 15 mg Given 02/28/2020 8:37 PM CDT 15 mg 15 mg, Slow IV Push, ONCE, 1 dose, 02/28/20 at 2130, [place], college or university faculty member approving Restricted medication: SARAHI AVILA morpHINE injection 4 mg Given 02/28/2020 9:07 PM CDT 4 mg 4 mg, Slow IV Push, ONCE, 1 dose, 02/28/20 at 2200, STAT NaCl 0.9% (NS) bolus infusion New Bag 02/28/2020 8:09 PM CDT 1,000 mL 999 mL/hr 1,000 mL at 999 mL/hr, 1,000 mL, IV Infusion, ONCE, 1 dose, 02/28/20 at 2000, [place] ondansetron (ZOFRAN (PF)) injection 4 mg Given 02/28/2020 8:37 PM CDT 4 mg 4 mg, Slow IV Push, ONCE, 1 dose, 02/28/20 at 2130, [place] documented in this encounter Insurance Payer Benefit Plan / Subscriber ID Effective Phone Address T ype Group Dates SAMMY CHRISTIANSON [id number] 2019-Pres Alisson RYAN Medic aid [employer] [id number] MANAGED MEDICAID [place], [place]ICAID [place] (Home) [place] [address] documented as of this encounter
[2020-03-05] MEDS ORDERED: HYDROCODONE/APAP 5/325 MG TAB ONE (20:18)
--- NOTE | 2020-03-05 20:32 | ER ---
Nurse's Notes [facility] Name: Natanael Dyson Age: 25 yrs Sex: Female : 1995 Arrival Date: 03/05/2020 Time: 19:36 Bed 16 Private MD: Diagnosis: Pain in right foot Presentation: 03/05 19:42 Chief complaint: Patient states: Kicked through a wooden cabinet door 1 hour [employer]. ll1 Bruising and pain to right foot since. Coronavirus screen: Client denies travel out of the [place] in the last 14 days. cough unrelated to allergies, Client presents with at least one sign or symptom that may indicate coronavirus-19. Standard/surgical mask placed on the client. Ebola Screen: Patient denies travel to an Ebola-affected area in the 21 days before illness onset. Initial Sepsis Screen: Does the patient meet any 2 criteria? HR > 90 bpm. No. Patient's initial sepsis screen is negative. Does the patient have a suspected source of infection? Yes: Bone or joint infection. Risk Assessment: Do you want to hurt yourself or someone else? Patient reports no desire to harm self or others. Onset of symptoms was March 05, 2020. 19:42 Method Of Arrival: Ambulatory ll1 19:42 Acuity: THIERNO 4 ll1 Historical: - Allergies: 19:44 Reglan; ll1 19:44 Zofran; ll1 - PMHx: 19:44 Kidney stones; Asthma; ll1 - PSHx: 19:44 ; Tubal ligation; ll1 - Immunization history:: Flu vaccine is not up to date. - Social history:: Smoking status: Patient denies any tobacco usage or history of. Screenin:40 Abuse screen: Denies threats or abuse. Nutritional screening: No deficits noted. jb4 Tuberculosis screening: No symptoms or risk factors identified. Fall Risk None identified. Assessment: 19:40 General: Appears in no apparent distress. comfortable, Behavior is calm, cooperative, jb4 appropriate for age. Pain: Complains of pain in right foot Pain does not radiate. Pain currently is 7 out of 10 on a pain scale. Quality of pain is described as throbbing. Neuro: Level of Consciousness is awake, alert, obeys commands, Oriented to person, place, time, situation. Cardiovascular: Patient's skin is warm and dry. Respiratory: Airway is patent Respiratory effort is even, unlabored, Respiratory pattern is regular, symmetrical. GI: No signs and/or symptoms were reported involving the gastrointestinal system. : No signs and/or symptoms were reported regarding the genitourinary system. EENT: No signs and/or symptoms were reported regarding the EENT system. Derm: Skin is intact, Skin is pink, warm \T\ dry. Musculoskeletal: Circulation, motion, and sensation intact. Range of motion: intact in all extremities. Injury Description: Bruise sustained to dorsum of right foot, right first toe, right second toe, right third toe and right fourth toe is purple. 21:20 Reassessment: Patient appears in no apparent distress at this time. Patient and/or jb4 family updated on plan of care and expected duration. Pain level reassessed. Patient is alert, oriented x 3, equal unlabored respirations, skin warm/dry/pink. Vital Signs: 19:42 BP 132 / 95; Pulse 97; Resp 17; Temp 98.2; Pulse Ox 100% ; Pain 9/10; ll1 ED Course: 19:36 Patient arrived in ED. ag3 19:38 Justin Curiel PA is PHCP. cp 19:38 Justin Estrella MD is Attending Physician. cp 19:39 Joss Moffett, RN is Primary Nurse. jb4 19:44 Triage completed. ll1 19:44 Arm band placed on Patient placed in an exam room, on a stretcher. ll1 20:34 XRAY Foot RIGHT 3 View In Process Unspecified. EDMS 21:20 No provider procedures requiring assistance completed. Patient did not have IV access jb4 during this emergency room visit. Administered Medications: 20:02 Not Given (PT took 2hrs [employer]): Ibuprofen 600 mg PO once jb4 20:02 Not Given (PT took 2hrs [employer]): Tylenol 1000 mg PO once jb4 20:10 Drug: [place] 5 mg-325 mg 1 tabs Route: PO; jb4 20:40 Follow up: Response: No adverse reaction; Pain is decreased; RASS: Alert and Calm (0) jb4 Outcome: 20:31 Discharge ordered by . cp 21:20 Discharged to home ambulatory, with crutches. jb4 21:20 Condition: stable 21:20 Discharge instructions given to patient, Instructed on discharge instructions, follow up and referral plans. medication usage, Demonstrated understanding of instructions, follow-up care, medications, Prescriptions given X 1. 21:21 Patient left the ED. jb4 Signatures: Dispatcher [employer] EDMS Justin Curiel PA PA cp Bryson, James, RN RN jb4 Dionne Nunez3 Brandi Cotter, RN RN ll1
--- NOTE | 2020-03-05 20:32 | EDPHYS ---
Physician Documentation [facility] Name: Natanael Dyson Age: 25 yrs Sex: Female : 1995 Arrival Date: 03/05/2020 Time: 19:36 Bed 16 Private MD: ED Physician Justin Estrella HPI: 03/05 20:00 This 25 yrs old Female presents to ER via Ambulatory with complaints of Foot cp Injury. 20:00 The patient presents with an injury, pain, that is acute. The complaints affect the cp right foot. Context: resulted from a direct blow, struck wooden cabinet with foot after becoming upset with , the patient can partially bear weight, the patient is able to ambulate, with moderate difficulty. Onset: The symptoms/episode began/occurred just prior to arrival. Associated signs and symptoms: Pertinent negatives numbness. Treatment prior to arrival includes: over the counter medications, NSAIDS, Tylenol. Historical: - Allergies: 19:44 Reglan; ll1 19:44 Zofran; ll1 - PMHx: 19:44 Kidney stones; Asthma; ll1 - PSHx: 19:44 ; Tubal ligation; ll1 - Immunization history:: Flu vaccine is not up to date. - Social history:: Smoking status: Patient denies any tobacco usage or history of. ROS: 20:05 MS/extremity: Positive for pain, swelling, tenderness, of the right foot, Negative for cp decreased range of motion, deformity, paresthesias. 20:05 Constitutional: Negative for fever. cp 20:05 Respiratory: Negative for cough, shortness of breath, wheezing. 20:05 Abdomen/GI: Negative for abdominal pain, nausea, vomiting, and diarrhea. 20:05 Skin: Negative for cellulitis, laceration(s). 20:05 All other systems are negative. Exam: 20:10 Constitutional: The patient appears in no acute distress, alert, awake, well developed, cp well nourished. 20:10 Head/Face: Normocephalic, atraumatic. cp 20:10 Cardiovascular: Rate: normal. 20:10 Respiratory: the patient does not display signs of respiratory distress, Respirations: normal. 20:10 Back: pain, is absent. 20:10 Musculoskeletal/extremity: Extremities: grossly normal except: noted in the right foot: pain, swelling, tenderness, Perfusion: the extremity is normally perfused throughout, Severe pain noted. Weight bearing: can bear weight with assistance only. 20:10 Skin: intact. Vital Signs: 19:42 BP 132 / 95; Pulse 97; Resp 17; Temp 98.2; Pulse Ox 100% ; Pain 9/10; ll1 MDM: 19:51 Patient medically screened. [facility] 20:00 Differential diagnosis: dislocation, open fracture, closed fracture, contusion. 20:28 Data reviewed: vital signs, nurses notes, radiologic studies, plain films. Test cp interpretation: by ED physician or midlevel provider: xrays of right foot negative for fracture. Counseling: I had a detailed discussion with the patient and/or guardian regarding: the historical points, exam findings, and any diagnostic results supporting the discharge/admit diagnosis, radiology results, to return to the emergency department if symptoms worsen or persist or if there are any questions or concerns that arise at home. 03/05 19:54 Order name: XRAY Foot RIGHT 3 View; Complete Time: 20:56 03/05 20:56 Interpretation: Report reviewed. 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 03/06 06:47 Co-signature as Attending Physician, Justin Estrella MD I agree with the assessment and [facility] plan of care. Disposition: 03/05/20 20:31 Discharged to Home. Impression: Pain in right foot. - Condition is Stable. - Discharge Instructions: Foot Pain. - Prescriptions for Ibuprofen 800 mg Oral Tablet - take 1 tablet by ORAL route every 8 hours As needed take with food; 30 tablet. - Medication Reconciliation Form, Thank You Letter, Antibiotic Education, Prescription Opioid Use form. - Follow up: Private Physician; When: 2 - 3 days; Reason: Worsening of condition. - Problem is new. - Symptoms have improved. Signatures: Dispatcher [employer] EDJustin Camacho MD MD cha Page, Corey, RISSA KWOK cp Joss Moffett RN RN jb4 Brandi Cotter RN RN ll1 Corrections: (The following items were deleted from the chart) 03/05 21:21 20:31 03/05/2020 20:31 Discharged to Home. Impression: Pain in right foot. Condition is jb4 Stable. Forms are Medication Reconciliation Form, Thank You Letter, Antibiotic Education, Prescription Opioid Use. Follow up: Private Physician; When: 2 - 3 days; Reason: Worsening of condition. Problem is new. Symptoms have improved. cp
--- NOTE | 2020-03-05 20:41 | RAD REPORT ---
EXAM DESCRIPTION: RAD - Foot Right 3 View - 03/05/2020 8:34 pm CLINICAL HISTORY: PAIN Trauma, pain COMPARISON: No comparisons FINDINGS: No acute fracture or dislocation is seen.
[2020-03-05 21:26] VITALS: BP 132/95; TEMP 98.2; O2SAT 100
== END 2020-03-05 21:21 | disposition home or self-care (01) ==
LOC: ER 19:34
DX: M79.671 Pain in right foot (principal); Z88.8 Allergy status to other drugs, medicaments and biological substances
CPT/HCPCS: 99283

== ENCOUNTER 2020-03-17 10:01 | Emergency (ER) | payer MEDICAID ==
--- OUTSIDE RECORDS SUMMARY | 2020-03-17 10:04 | XMS REPORT | Continuity of Care Document ---
:[address] [facility] t Address [address] [place] [address] Care Team Providers Name Role Phone Christian FELIX Attending Clinician Jm Quiñonez MD Attending Clinician Doctor Unassigned, Name Attending Clinician Unavailable Coretta FELIX Attending Clinician Errol HENDRICKS Attending Clinician Dharmesh Roy Attending Clinician Problems This patient has no known problems. Allergies, Adverse Reactions, Alerts This patient has no known allergies or adverse reactions. Medications This patient has no known medications. Procedures This patient has no known procedures. Encounters Start End Encounter Admission Attending Care Care Encounter Source Date/Time Date/Time Type Type Clinicians Facility Department ID 2020-03-09 2020-03-09 [id number] 13:28:00 16:37:00 Kye Richards 350.1.13.10 [place] 4.2.7.2.686 [place] [id number] 2020-03-09 2020-03-09 Telephone Shelia Quiñonez [place] 1.2.840.114 [id number] 00:00:00 00:00:00 Jm Richards 350.1.13.10 [place] 4.2.7.2.686 [facility] [id number] [address] 2020-03-09 2020-03-09 Orders Doctor [place] 1.2.840.114 [id number] 00:00:00 00:00:00 Only UnassYAZMIN orozco 350.1.13.10 [place] [facility] 4.2.7.2.686 [id number] 2020-03-04 2020-03-04 Refill Heaven Hitchcocksir [facility] 1.2.840.114 [id number] 00:00:00 00:00:00 Y HEALTH 350.1.13.10 [facility] 4.2.7.2.686 [id number] 2020-02-28 2020-02-28 Emergency Andreia Norton [facility] 1.2.840 .114 [id number] 19:30:00 21:38:00 Omari Hurst 350.1.13.10 [place] 42.7.2.686 [place] [id number] 2020-02-28 2020-02-28 Orders Doctor JORDAN 1.2.840.114 [id number] 00:00:00 00:00:00 Only UnassignedYAZMIN 350.1.13.10 [place] [address].2.7.2.686 [id number] 2020-02-25 2020-02-25 Telemedici Coretta, Lopez [facility] 1.2.840.11 [id number] 13:30:06 14:00:06 ne Visit Y HEALTH 350.1.13.10 CLINICS 4.2.7.2.686 [id number] 2020 2020 Patient Coretta, Lopez [facility] 1.2.840.114 [id number] 00:00:00 00:00:00 Secure Msg Y HEALTH 350.1.13.10 CLINICS 4.2.7.2.686 [id number] 312 2020 2020 Patient Coretta, Lopez [facility] 1.2.840.114 [id number] 00:00:00 00:00:00 Secure Msg Y HEALTH 350.1.13.10 CLINICS 4.2.7.2.686 [id number] 312 2020 2020 Patient Coretta, Lopez [facility] 1.2.840.114 [id number] 00:00:00 00:00:00 Secure Msg Y HEALTH 350.1.13.10 CLINICS 4.2.7.2.686 [id number] 2020 2020 Refill Lopez Hitchcock [facility] 1.2.840.114 [id number] 00:00:00 00:00:00 MULTISPEC 350.1.13.10 [place] 4.2.7.2.686 [place] [id number] AND WEI [facility] DI[facility]ETES [facility]IN[facility] 2020 2020 Telephone Coretta, [facility] 1.2.840.114 [id number] 00:00:00 00:00:00 Y HEALTH 350.1.13.10 [facility] 4.2.7.2.686 [id number] 312 2020 2020 [facility] 1.2.840.114 [id number] 00:00:00 00:00:00 Y HEALTH 350.1.13.10 [facility] 4.2.7.2.686 [id number] 2020-02-17 2020-02-17 [facility] 1.2.840.114 [id number] 00:00:00 00:00:00 Secure Msg MULTISPEC 350.1.13.10 [place] 4.2.7.2.686 [place] [id number] [place] [address] DIABETES CLINIC Results This patient has no known results.
--- OUTSIDE RECORDS SUMMARY | 2020-03-17 10:04 | XMS REPORT | Summary of Care ---
:[address] [facility] - [facility] Address [address] [place] [address] Care Team Providers Name Role Phone Jessica Baker Insurance Hmo Jm Quiñonez MD Primary Care Provider Encounter Details Date Type Department Care Team Description 12/26/[address] [facility] Doctor Unassigned, No 301 [facility] Name [place] [id number] [place] [address] Allergies Active Allergy Reactions Severity Noted Date [...] Visit Obstetrics & Gynecology Suzanna Slaughter PA-C [address] [place] [address] [phone] Health Maintenance Due Date Last Done [...] / Subscriber ID Effective Phone Address [facility] Group Dates SAMMY CHRISTIANSON [id number] 2019-Pres [address] Medic aid HEALTHCARE [place]ARE [place] [id number] MANAGED MEDICAID [place] documented as of this encounter
--- OUTSIDE RECORDS SUMMARY | 2020-03-17 10:05 | XMS REPORT | Summary of Care ---
:1995 Author Organization [facility] Address [address] [place] [address] Care Team Providers Name Role Phone Jessica Baker Insurance Hmo Jm Quiñonez MD Primary Care Provider Reason for Visit Reason Comments Assessment Encounter Details Date Type Department Care Team Description 01/05/2020 Telephone [facility] Women's Tamy Slaughter PA-C Assessment Healthcare- [address] 146 [facility] [address] [place] [address] [place] [address] [phone] Allergies Active Allergy Reactions Severity Noted Date [...] advised that patient should be seen at [facility] since that is where the medication was prescribed. Patient stated that she called [facility] and they blew her off and told her they did not have anything available. RN offered patient a telehealth appointment for today, patient accepted. Call transferred to [facility] for appointment. Telehealth Appointment scheduled for [...] Obstetrics & Gynecology Shelia Quiñonez MD Arrived [address] [place] [address] 775 15 [phone] 2020 Office Visit Obstetrics & Gynecology Suzanna Slaughter PA-C [address] [place] [address] [phone] Health Maintenance Due Date Last Done Comments [...] Address T e Group Dates SAMMY CHRISTIANSON [id number] 2019-Pres Al[address] BOX Medic aid HEALTHCARE [place]ARE [place] [id number] MANAGED MEDICAID [place] documented as of this encounter
--- OUTSIDE RECORDS SUMMARY | 2020-03-17 10:05 | XMS REPORT | Summary of Care ---
:1995 Author Organization [facility] - [facility] Address [address] [place] [address] Care Team Providers Name Role Phone Jessica Baker Insurance Hmo Jm Quiñonez MD Primary Care Provider Reason for Referral MRI/CAT Scan (STAT) Status Reason Specialty Diagnoses / Referred By Referred To Procedures Contact Contact New Request Diagnostic Diagnoses Flank pain Maggie Hamilton Radiology Procedures CT Abdomen/Pelvis W/O Contrast J, DO [address] [place] [address] Reason for Visit Reason Comments Flank Pain right Auth/Cert Status Reason Specialty Diagnoses / Referred By Referred To Procedures Contact Contact Emergency Medicine [facility] Em ergency Dept [address] [place] [address] Fax: Encounter Details Date Type Department Care Team Description 12/26/2019 Emergency ADC-Emergency Maggie Hamilton, Flank p ain (Primary Department DO Dx) [address] [place] [address] [phone] Allergies Active Allergy Reactions Severity Noted Date [...] Body Mass Index 23.62 07/18/2019 1:13 AM 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 Pyelonephritis NO LIFE-THREATENING FINDINGS ON TODAY'S EXAM. PROCEDURES IN THE ER TODAY: Blood work Urine test CT abdomen/pelvis MEDICATIONS ADMINISTERED IN THE ER TODAY: Zofran Morphine Toradol IV fluids Rocephin YOUR PRESCRIPTIONS AND [id number] MEDICATION RECOMMENDATIONS: Vantin by mouth twice a day. Please complete your entire course of antibiotics. Tylenol with codeine by mouth every 4 hours as needed for pain. Do not drive while taking this medication. SPECIAL CARE INSTRUCTIONS: None FOLLOW-UP RECOMMENDATIONS: RECOMMEND FOLLOW-UP WITH A PRIMARY CARE PROVIDER OR SPECIALIST IN 2-5 DAYS, ESPECIALLY IF NO IMPROVEMENT IN SYMPTOMS. TO FOLLOW-UP WITHIN THE [facility], TRY THESE OPTIONS (CLINIC APPOINTMENTS AVAILABLE ON GLOO-PZ-XAMX BASIS): 1. SCHEDULE AN APPOINTMENT ONLINE AT [email or web address][facility] 2. OR CALL THE [facility] ACCESS [facility] AT OR 3. OR CALL YOUR [facility] PHYSICIAN'S OFFICE DIRECTLY IF YOU ARE ALREADY AN ESTABLISHED [facility] PATIENT. OR, YOU MAY FOLLOW-UP WITH A PROVIDER OF YOUR CHOICE, SUCH : 1. A PHYSICIAN OF YOUR CHOICE 2. [facility], . LOCATIONS IN [facility] 3. [facility], [address] [place], [place]; [phone] RETURN TO ER FOR WORSENING OF SYMPTOMS. AttachmentsThe following attachments cannot be sent through Care Everywhere. Abdominal Pain, Adult (Belgian)Pyelonephritis, Discharge Instructions for (Belgian)documented in this encounter ED Notes Yamini Brito RN - 12/26/2019 9:22 AM CDTPatient c/o right flank pain x2 weeks and is becoming worse; states she now is having trouble voiding. LMP per patient was the "beginning of this month". aggie Hamilton DO - 12/26/2019 9:16 AM CDT [facility] Emergency Department Note Patient Name: Natanael Dyson [...] N/A 07/21/2019 Surgeon: Shelia Quiñonez MD; Location: [facility] OR Location TUBAL LIGATION N/A 07/21/2019 Surgeon: Shelia Quiñonez MD; Location: [facility] OR Location Review [...] C Line present POCT PREG LOT # [id number] POCT PREG TEST DATE Urinalysis Collection Time: [...] Visit Obstetrics & Gynecology Suzanna Slaughter PA-C [address] [place] [address] [phone] Name Type Priority Associated Diagnoses Order [...] with the above report. Performing Organization Address [facility] Phone Number PACS/VR/DOSE Urinalysis (12/26/2019 9:56 AM CDT) Pathologist Sig nature APPEARANCE Cloudy (A) Clear [facility] COLOR Yellow Yellow [facility] PH 7.0 4.8 - 8.0 [facility] SP GRAVITY 1.021 1.003 - 1.030 [facility] GLU U QUAL Normal Normal [facility] BLOOD Negative Negative [facility] KETONES Negative Negative [facility] PROTEIN Negative Negative [facility] UROBILIN Normal Normal [facility] BILIRUBIN Negative Negative [facility] NITRITE Negative Negative [facility] LEUK ANJELICA 75/uL (A) Negative [facility] RBC/HPF 2 0 - 3 HPF [facility] WBC/HPF 4 0 - 5 HPF [facility] BACTERIA Few (A) Negative [facility] MUCOUS Slight (A) Negative LPF [facility] SQ EPITH 29 HPF [facility] Specimen Urine - URINE, CLEAN CATCH Performing Organization Address [facility] Phone Number [facility] CLIA: [id number] [place] [address] POCT Test (12/26/2019 9:55 AM CDT) Pathologist Sig nature POCT PREG negative On board controls acceptable present with C Line POCT PREG LOT # [id number] POCT PREG TEST DATE Specimen Urine - URINE, CLEAN CATCH Test, Serum (12/26/2019 9:29 AM CDT) Pathologist [facility] PREG SERUM Negative [facility] Specimen Blood - VENOUS Narrative Performed At Less than 10 IU/L. If low titer or ectopic [facility] is suspected, resubmit specimen in 48-72 hours. Performing Organization Address City/State/Zipcode Phone Number [facility] CLIA: [id number] [place] [address] Basic Metabolic Panel (NA, K, CL, CO2, GLUCOSE, BUN, CREATININE, CA) (12/26/2019 9:29 AM CDT) [facility] NA 136 135 - 145 [facility] mmol/L [facility] K 3.9 3.5 - 5.0 [facility] mmol/L [facility] CL 106 98 - 108 mmol/L [facility] CO2 TOTAL 22 (L) 23 - 31 mmol/L [facility] AGAP 8 2 - 16 [facility] BUN 13 7 - 23 mg/dL [facility] GLUCOSE 104 70 - 110 mg/dL [facility] CREATININE 0.71 0.50 - 1.04 [facility] mg/dL [facility] CALCIUM 9.2 8.6 - 10.6 [facility] mg/dL [facility] eGFR Calculation 101.1 mL/min/1.73m2 [facility] (Non-) [facility] LABORATOR Y eGFR Calculation 122.6 mL/min/1.73m2 [facility] () [facility] Specimen Blood - VENOUS Narrative [...] tests). Performing Organization Address City/State/Zipcode Phone Number [facility] CLIA: [id number] [place] [address] CBC with Differential (12/26/2019 9:29 AM CDT) Pathologist Sig nature WBC 5.16 4.30 - 11.10 [facility] 10*3/L [facility]ORY RBC 4.67 3.93 - 5.25 [facility] 10*6/L [facility] HGB 13.4 11.6 - 15.0 g/dL [facility] HCT 40.3 35.7 - 45.2 % [facility] MCV 86.3 80.6 - 95.5 fL [facility] MCH 28.7 25.9 - 32.8 pg [facility] MCHC 33.3 31.6 - 35.1 g/dL [facility] RDW-SD 44.3 39.0 - 49.9 fL [facility] RDW-CV 14.0 12.0 - 15.5 % [facility] PLT 346 166 - 358 [facility] 10*3/L [facility] MPV 10.0 9.5 - 12.9 fL [facility] NRBC/100 WBC 0.0 0.0 - 10.0 /100 [facility] WBCs [facility] NRBC x10^3 <0.01 10*3/L [facility] GRAN MAT (NEUT) % 40.8 % [facility] IMM GRAN % 0.40 % [facility] LYMPH % 44.4 % [facility] MONO % 6.6 % [facility] EOS % 7.0 % [facility] BASO % 0.8 % [facility] GRAN MAT x10^3(ANC) 2.11 1.88 - 7.09 [facility] 10*3/uL [facility] LABOR[facility] IMM GRAN x10^3 <0.03 0.00 - 0.06 [facility] 10*3/uL [facility] LYMPH x10^3 2.29 1.32 - 3.29 [facility] 10*3/uL [facility] LAB[facility] MONO x10^3 0.34 0.33 - 0.92 [facility] 10*3/uL [facility] LAB[facility]ORY EOS x10^3 0.36 0.03 - 0.39 [facility] 10*3/uL [facility] BASO x10^3 0.04 0.01 - 0.07 [place] [address]/[facility] LABORATORY Specimen Blood - VENOUS Performing Organization Address City/State/Zipcode Phone Number [facility] CLIA: [id number] [place] [address] documented [...] ONCE, 1 dose, 12/26/19 at 0930, [place], outreach team member approving Restricted medication: MAGGIE HAMILTON [...] Address T ype Group Dates SAMMY BAZANINA [id number] 2019-Pres [address] BOX Medic aid HE[place]CARE [place]ARE [place] [id number] MANAGED MEDICAID [place] documented as of this encounter
--- OUTSIDE RECORDS SUMMARY | 2020-03-17 10:05 | XMS REPORT | Summary of Care ---
:1995 Author Organization [facility] Address [address] [place] [address] Care Team Providers Name Role Phone BakerJessica Insurance Hmo Jm Quiñonez MD Primary Care Provider Reason for Referral (Routine) Status Reason Specialty Diagnoses / Referred By Referred To Procedures Contact Contact New Request Psychiatry Diagnoses Anxiety disorder, unspecified type Insomnia, unspecified type Depression, unspecified depression type Shelia Quiñonez MD Procedures CONSULT/REFERRAL PSYCHIATRY ADULT [address] [facility] [address] [place] [address] Reason for Visit Reason Comments Anxiety Encounter Details Date Type Department Care Team Description 01/05/2020 Telemedicine Visit [facility] Women's Shelia Quiñonez MD Anxiety disorder, unspecified type (Prim robert Dx); [facility]- [address] [facility] Insomnia, unspecified type; Maurice CORNELL Depression, unspecified depression type [address] [facility] [address], [address] [place] [address] [phone] Allergies Active Allergy Reactions Severity Noted Date [...] risk, serotonin syndrome, QT prolongation, SIADH, hyponatremia, RN ENDOSCOPY depression, insomnia, anxiety, nervousness, anorexia. Advise it may take at least 6 wks of treatment before seeing improvement in mood. Patient understands and desires treatment. Vigoda discussed and patient will schedule an appointment with them for counseling.Patient is aware that she will be referred to psych for further management. Follow-up in 4 wks for EPDS/anxiety. After visit summary (AVS ) documentation will be available through [employer] for this encounter. A total of 25 minutes was spent on the video call and chart review. Shelia Quiñonez MD 01/05/2020 5:44 PM documented in this encounter Plan of Treatment Date Type Specialty Care Team Description 01/14/2020 Office Visit Nephrology Lopez Hitchcock MD [address] [place] [address] [phone] 2020 Office Visit Obstetrics & Gynecology Suzanna Slaughter PA-C [address] [place] [address] [phone] Health Maintenance Due Date Last [...] Diagnosis Anxiety disorder, unspecified type - Gabriela asbi Insomnia, unspecified type Depression, unspecified depression type documented in this encounter Insurance Payer Benefit Plan / Subscriber ID Effective Phone Address T ype Group Dates ASMMY CHRISTIANSON [id number] 2019-Pres [address] BOX Medic aid HEALTHCARE - [place]CARE [place] [id number] MANAGED MEDICAID [place] documented as of this encounter
--- OUTSIDE RECORDS SUMMARY | 2020-03-17 10:06 | XMS REPORT | Summary of Care ---
:1995 Author Organization [facility] Address [address] [place] [address] Care Team Providers Name Role Phone Jessica Baker Insurance Hmo Jm Quiñonez MD Primary Care Provider Encounter Details Date Type Department Care Team Description 01/13/2020 Patient Secure [facility] Lopez Hitchcock M D Nephrology- [address], [address] 6th Floor [phone] [place] [address] Allergies Active Allergy Reactions Severity [...] Za Enriquez RN - 01/15/2020 11:11 AM [phone] (home) Left message to call back documented in this encounter Plan of Treatment Date Type Specialty Care Team Description 01/21/2020 Toy Packer Visit Phlebotomy 2, Adc Lab 02/08/2020 Telemedicine Visit Obstetrics & Gynecology Shelia Quiñonez MD [address] [place] [address] DR. Son [place] 845605 15 [phone] 2020 Office Visit Obstetrics & Gynecology Suzanna Slaughter PA-C [address] [place] [address] Health Maintenance Due Date Last Done [...] / Subscriber ID Effective Phone Address T [facility] Dates SAMMY CHRISTIANSON [id number] 2019-Pres P O BOX Medic aid HEALTHCARE - HEALTHCARE [place] [id number] MANAGED MEDICAID [place] documented as of this encounter
--- OUTSIDE RECORDS SUMMARY | 2020-03-17 10:06 | XMS REPORT | Summary of Care ---
:1995 Author Organization [facility] - Health Address [address] [place] [address] Care Team Providers Name Role Phone Jessica Baker Insurance Hmo Jm Quiñonez MD Primary Care Provider Encounter Details Date Type Department Care Team Description 01/23/2020 Orders Only [facility] Doctor Unassigned, No 301 [facility] Name [place] [phone] [place] [phone] Allergies Active Allergy Reactions Severity Noted Date [...] Date Type Specialty Care Team Description 01/23/2020 Alum Plant Operator Visit Phlebotomy [place], Adc Lab Main 02/08/2020 Telemedicine Visit Obstetrics & Gynecology Shelia Quiñonez MD [address] [place] [address] 775 15 [phone] 2020 Office Visit Obstetrics & Gynecology Suzanna Slaughter PA-C [address] [place] [address] [phone] Health Maintenance Due Date Last Done Comments [...] / Subscriber ID Effective Phone Address T [facility] Group Dates SAMMY CHRISTIANSON [id number] 2019-Pres P O BOX Medic aid HEALTHCARE - HEALTHCARE ent [id number] MANAGED MEDICAID [place] documented as of this encounter
--- OUTSIDE RECORDS SUMMARY | 2020-03-17 10:06 | XMS REPORT | Summary of Care ---
:1995 Author Organization [facility] Address [address] [place] [address] Care Team Providers Name Role Phone Jessica Baker Insurance Hmo Jm Quiñonez MD Primary Care Provider Encounter Details Date Type Department Care Team Description 01/13/2020 Patient Secure [facility] Lopez Hitchcock M D Nephrology- [address], [address] 6th Floor [phone] [place] [address] Allergies Active Allergy Reactions Severity [...] Enriquez RN - 01/15/2020 11:11 AM CDT [phone] (home) Left message to call back documented in this encounter Plan of Treatment Date Type Specialty Care Team Description 02/08/2020 Telemedicine Visit Obstetrics & Gynecology Shelia Quiñonez MD [address] [place] [address] 775 15 [phone] 2020 Office Visit Obstetrics & Gynecology Suzanna Slaughter PA-C [address] [place] [phone] Health Maintenance Due Date Last Done Comments [...] Address T ype Group Dates SAMMY CHRISTIANSON [id number] 2019-Pres P O BOX Medic aid HEALTHCARE - HEALTHCARE ent [id number] MANAGED MEDICAID [place] documented as of this encounter
--- OUTSIDE RECORDS SUMMARY | 2020-03-17 10:06 | XMS REPORT | Summary of Care ---
:1995 Author Organization [facility] Address [address] [place] [address] Care Team Providers Name Role Phone Jessica Baker Insurance Hmo Jm Quiñonez MD Primary Care Provider Encounter Details Date Type Department Care Team Description 01/13/2020 Patient Secure [facility] Lopez Hitchcock M D Nephrology- [address], [address] 6th Floor [phone] [place] [address] Allergies Active Allergy Reactions Severity [...] Visit Obstetrics & Gynecology Shelia Quiñonez MD [address] [place] [address] 775 15 2020 Office Visit Obstetrics & Gynecology Suzanna Slaughter PA-C [address] [place] [phone] Health Maintenance Due Date Last Done Comments [...] / Subscriber ID Effective Phone Address T [facility] Group Dates SAMMY CHRISTIANSON [id number] 2019-Pres P O BOX Medic aid HEALTHCARE - HEALTHCARE ent [id number] MANAGED MEDICAID [place] documented as of this encounter
--- OUTSIDE RECORDS SUMMARY | 2020-03-17 10:06 | XMS REPORT | Summary of Care ---
:1995 Author Organization [facility] Address [address] [place] [address] Care Team Providers Name Role Phone Jessica Baker Insurance Hmo Jm Quiñonez MD Primary Care Provider Reason for Visit Reason Comments Flank Pain Encounter Details Date Type Department Care Team Description 01/14/2020 Telemedicine Visit [facility] Lopez Hitchcock M D Pain (Primary Dx); Nephrology- [address] [place] [address] Kidney stones [facility] [address] [place] [address] Drive, 6th [place] [address] Allergies Active Allergy Reactions Severity [...] (AVS ) documentation will be available through [email or web address] for this encounter. A total of 15 minutes was spent on the Video Call, chart review, and coordination of care with specialists. Lopez Hitchcock MD documented in this encounter Plan of Treatment Date Type Specialty Care Team Description 02/08/2020 Telemedicine Visit Obstetrics & Gynecology Shelia Quiñonez MD [address] [place] [address] 775 15 2020 Office Visit Obstetrics & Gynecology Suzanna Slaughter PA-C [address] [place] [phone] Name Type Priority Associated Diagnoses Order [...] Address T e Group Dates SAMMY CHRISTIANSON [id number] 2019-Pres Alisson RYAN Medic aid HEALTHCARE - HEALTHCARE ent [id number] MANAGED MEDICAID [place] documented as of this encounter
--- OUTSIDE RECORDS SUMMARY | 2020-03-17 10:07 | XMS REPORT | Summary of Care ---
:1995 Author Organization [facility] Address [address] [place] [address] Care Team Providers Name Role Phone Jessica Baker Insurance Hmo Jm Quiñonez MD Primary Care Provider Reason for Visit Reason Comments Results lab Encounter Details Date Type Department Care Team Description 01/25/2020 Telephone [facility] Nephrology- Keyonna Hitchcock MD Results (lab) [address] [address] [place] [address], [address] [place] [address] [place] [address] Allergies Active Allergy Reactions [...] amount to 1480 was in the specimen [phone] (home) Patient reports just a bit shy of line Reported results to Lab elephone Encounter - Skylar Ham Kassandra - 01/26/2020 3:20 PM CDTAngel Nelia Dyson is a 24 year old female is calling for lab results. Please call patient [phone]. Thank you. elephone Encounter - Remedios Nettles - 01/25/2020 2:09 PM CDTPt called requesting her lab results done on 01/22. documented in this encounter Plan of Treatment Date Type Specialty Care Team Description 02/08/2020 Telemedicine Visit Obstetrics & Gynecology Shelia Quiñonez MD [address] [place] [address] DRPilar [facility] [address] [place], [place] [address] 2020 Office Visit Obstetrics & Gynecology Suzanna Slaughter PA-C [address] [place] [phone] Health Maintenance Due Date Last Done Comments [...] T ype Group Dates CHRISTIANSONMARIA LUZ CHRISTIANSON [id number] 2019-Pres P O BOX Medic aid HEALTHCARE - HEALTHCARE [place] [id number] MANAGED MEDICAID [place] documented as of this encounter
--- OUTSIDE RECORDS SUMMARY | 2020-03-17 10:07 | XMS REPORT | Summary of Care ---
:1995 Author Organization [facility] Address [address] [place] [address] Care Team Providers Name Role Phone Jessica Baker Insurance Hmo Jm Quiñonez MD Primary Care Provider Reason for Visit Reason Comments LAB WORK Auth/Cert Status Reason Specialty Diagnoses / Procedures Referred By Jessica ontact Referred To Contact Phlebotomy Diagnoses LAB DROP URINE Adc Pob Lab Draw Professional O ffice Building [address] [place] [address] , [address] [place] [address] Phone: Fax: Encounter Details Date Type Department Care Team Description 01/23/2020 News Copy Editor Visit [facility] Lopez Hitchcock MD [address] [place] [phone] Pain; Professional Office Pob, Adc Lab Main Kidney stones Building Phlebotomy Lab Professional Office Building [address] [place] [address] , [address] [place] [address] Allergies Active Allergy Reactions Severity Noted [...] accordingly. [facility]: 24 hour urine 1 Random urine Stool Swab Other documented in this encounter Plan of Treatment Date Type Specialty Care Team Description 02/08/2020 Telemedicine Visit Obstetrics & Gynecology Shelia Quiñonez MD [address] [place] [address] DRPilar Jae [address] [place], [place] 775 [address] 2020 Office Visit Obstetrics & Gynecology Suzanna Slaughter PA-C [address] [place] [address] Name Type Priority Associated Diagnoses [...] Address T ype Group Dates CHRISTIANSON CHRISTIANSON [id number] 2019-Pres P O BOX Medic aid HEALTHCARE - HEALTHCARE ent [id number] MANAGED MEDICAID [place] documented as of this encounter
--- OUTSIDE RECORDS SUMMARY | 2020-03-17 10:07 | XMS REPORT | Summary of Care ---
:1995 Author Organization [facility] Address [address] [place] [address] Care Team Providers Name Role Phone Jessica Baker Insurance Hmo Jm Quiñonez MD Primary Care Provider Encounter Details Date Type Department Care Team Description 01/13/2020 Patient Secure [facility] Lopez Hitchcock M D Nephrology- [address], [address] 6th Floor [phone] [place] [address] Allergies Active Allergy Reactions Severity [...] Za Enriquez RN - 01/15/2020 11:11 AM [phone] (home) Left message to call back documented in this encounter Plan of Treatment Date Type Specialty Care Team Description 02/08/2020 Telemedicine Visit Obstetrics & Gynecology Shelia Quiñonez MD [address] [place] [address] DR. [place], [place] 7[address] 15 [phone] 2020 Office Visit Obstetrics & Gynecology Suzanna Slaughter PA-C [address] [place] [address] [phone] Health Maintenance Due Date Last Done Comments [...] Address T e Group Dates SAMMY CHRISTIANSON [id number] 2019-Pres P O BOX Medic aid HEALTHCARE - HEALTHCARE [place] [id number] MANAGED MEDICAID [place] documented as of this encounter
--- OUTSIDE RECORDS SUMMARY | 2020-03-17 10:07 | XMS REPORT | Summary of Care ---
:1995 Author Organization [facility] - [address] [address] Care Team Providers Name Role Phone Jessica Baker Insurance Hmo Jm Quiñonez MD Primary Care Provider Reason for Visit Reason Comments Lab Results Encounter Details Date Type Department Care Team Description 02/02/2020 Telephone [facility] Nephrology- Keyonna Hitchcock MD Lab Results [address] [address] [place] [address] [place] [address] Allergies Active Allergy Reactions [...] Visit Obstetrics & Gynecology Shelia Quiñonez MD [address] [place] [address] 775 15 2020 Office Visit Obstetrics & Gynecology Suzanna Slaughter PA-C [address] [place] [address] Health Maintenance Due Date Last Done [...] Address T e Group Dates SAMMY BAZANINA [id number] 2019-Pres P O BOX Medic aid HEALTHCARE - HEALTHCARE ent [id number] MANAGED MEDICAID [place] documented as of this encounter
--- OUTSIDE RECORDS SUMMARY | 2020-03-17 10:08 | XMS REPORT | Summary of Care ---
:1995 Author Organization [facility] Address [address] [place] [address] Care Team Providers Name Role Phone Jessica Baker Insurance Hmo Jm Quiñonez MD Primary Care Provider Reason for Visit Reason Comments Fever Cough Auth/Cert Status Reason Specialty Diagnoses / Referred By Referred To Procedures Contact Contact Emergency Medicine Adc Em ergency Dept [address] [place] [address] Fax: Encounter Details Date Type Department Care Team Description 02/03/2020 Emergency ADC-Emergency Kaycee Méndez, Suspected Covid-19 Virus Infection (Primary Dx); Department PAC Cough; [address] [place] [address] Dr valdovinos [address] 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 Coronavirus Disease 2019: Caring for Yourself and Others (Brazilian)URI, Viral, No Abx (Adult) (Brazilian)documented in this encounter ED Notes Ileana De León RN - 02/03/2020 4:09 PM CDT24 year old female coming to ER for fever and cough for 4 days. 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 documented in this [...] Visit Obstetrics & Gynecology Shelia Quiñonez MD [address] [place] [address] DR. [facility] 208 [place], [place] [address] 2020 Office Visit Obstetrics & Gynecology Suaznna Slaughter PA-C [address] [place] [address] 208 [place] [phone] Name Type Priority Associated Diagnoses Date/Ti me [...] Pathologist Sig nature Streptococcus pyogenes Negative Negative [facility] (group A) antigen [facility] Specimen Swab - THROAT Performing Organization Address City/State/Zipcode Phone Number [facility] CLIA: [id number] [place] [address] documented in this [...] Address T ype Group Dates SAMMY CHRISTIANSON [id number] 2019-Pres P O BOX Medic aid HEALTHCARE - HEALTHCARE ent [id number] MANAGED MEDICAID [place] documented as of this encounter
--- OUTSIDE RECORDS SUMMARY | 2020-03-17 10:08 | XMS REPORT | Summary of Care ---
:1995 Author Organization [facility] Address [address] [place] [address] Care Team Providers Name Role Phone Jessica Baker Insurance Hmo Jm Quiñonez MD Primary Care Provider Encounter Details Date Type Department Care Team Description 02/04/2020 Letter (Out) [facility] Brigitte Acevedo RN [address] [place] [address] Allergies Active Allergy Reactions Severity [...] Visit Obstetrics & Gynecology Shelia Quiñonez MD [address] [place] [address] DR. Son [place], [facility] 15 [phone] 2020 Office Visit Obstetrics & Gynecology Suzanna Slaughter PA-C [address] [place] [phone] Health Maintenance Due Date Last Done [...] / Subscriber ID Effective Phone Address T [facility] Group Dates SAMMY CHRISTIANSON [id number] 2019-Pres Alisson RYAN Medic aid HEALTHCARE - HEALTHCARE ent [id number] MANAGED MEDICAID [place] documented as of this encounter
--- OUTSIDE RECORDS SUMMARY | 2020-03-17 10:09 | XMS REPORT | Summary of Care ---
:1995 Author Organization [facility] Address [address] [place] [address] Care Team Providers Name Role Phone Jessica Baker Insurance Hmo Jm Quiñonez MD Primary Care Provider Encounter Details Date Type Department Care Team Description 02/05/2020 Patient Secure [facility] [address], [address] [place] [address] Floor [phone] [place] [address] Allergies Active Allergy Reactions Severity [...] Visit Obstetrics & Gynecology Shelia Quiñonez MD [address] [place] [address] DRPilar Jae 208 [place], [place] [address] 2020 Office Visit Obstetrics & Gynecology Suzanna Slaughter PA-C 146 [facility] 208 [place] [phone] Health Maintenance Due Date Last Done Comments [...] Address T e Group Dates SAMMY CHRISTIANSON [id number] 2019-Pres P O BOX Medic aid HEALTHCARE - HEALTHCARE [place] [id number] MANAGED MEDICAID [place] documented as of this encounter
--- OUTSIDE RECORDS SUMMARY | 2020-03-17 10:09 | XMS REPORT | Summary of Care ---
:1995 Author Organization [facility] Address [address] [place] [address] Care Team Providers Name Role Phone Baker, Jessica Insurance Hmo Jm Quiñonez MD Primary Care Provider Reason for Visit Reason Comments F/U Encounter Details Date Type Department Care Team Description 02/08/2020 Telemedicine Visit [facility] Women's Shelia Quiñonez MD Insomnia, unspecified type (Primary Dx); Healthcare- [address] [facility] Anxiety di sorder, unspecified type; Maurice CORNELL Other depression 146 [facility] [address], [address] [place], [place] [address] Allergies Active Allergy Reactions Severity Noted [...] is the AVS which is accessible through [employer]. Patient/guardian/family verbalized understanding and agrees to the plan of care. Barriers to care:None. Ability to manage care: Good. If applicable, the [facility] [place] [facility] database was accessed to review any controlled substance prescription claims data. If the patient is taking prescribed medications, the [place] [facility] prescription claims data in [employer] was reviewed to assess patient compliance with [...] Visit Obstetrics & Gynecology Young Quiñonez MD [address] [place] [address] [place] [address] [phone] Health Maintenance Due Date Last Done Comments [...] Address T ype Group Dates SAMMY CHRISTIANSON [id number] 2019-Pres P O BOX Medic aid HEALTHCARE - HEALTHCARE ent [id number] MANAGED MEDICAID [place] documented as of this encounter
--- OUTSIDE RECORDS SUMMARY | 2020-03-17 10:09 | XMS REPORT | Summary of Care ---
:1995 Author Organization [facility] Address [address] [place] [address] Care Team Providers Name Role Phone Jessica Baker Insurance Hmo Jm Quiñonez MD Primary Care Provider Reason for Visit Reason Comments Refill Request Encounter Details Date Type Department Care Team Description 02/04/2020 Refill [facility] Nephrology- Keyonna Hitchcock MD Refill Request [address] [address] [place] [address] [place] [address] Allergies Active Allergy Reactions [...] resend the prescription as soon as possible. [facility] [address] [place] [address] elephone Encounter - Za Enriquez RN - 02/04/2020 3:[address] Hitchcock please call in tramadol under Dr. Bill [facility] [address] [place] [address] Called into pharmacy traMADoL (ULTRAM) 50 mg tablet 15 tablet 1 02/04/2020 02/11/2020 -- Sig: Take 1 tablet by mouth every 6 (six) hours as needed for Pain (scale 4-6) for up to 7 days. Indications: acute pain Class: Normal Route: Oral Order: [id number] documented in this encounter Plan of Treatment Date Type Specialty Care Team Description 02/08/2020 Telemedicine Visit Obstetrics & Gynecology Shelia Quiñonez MD [address] [place] [address] 775 15 [phone] 2020 Office Visit Obstetrics & Gynecology Suzanna Slaughter PA-C [address] [place] [address] [phone] Health Maintenance Due Date Last Done Comments [...] Address T e Group Dates SAMMY CHRISTIANSON [id number] 2019-Pres P O BOX Medic aid HEALTHCARE - HEALTHCARE ent [id number] MANAGED MEDICAID [place] documented as of this encounter
--- OUTSIDE RECORDS SUMMARY | 2020-03-17 10:09 | XMS REPORT | Summary of Care ---
:1995 Author Organization [facility] Address [address] [place] [address] Care Team Providers Name Role Phone Jessica Baker Insurance Hmo Jm Quiñonez MD Primary Care Provider Reason for Visit Reason Comments Flank Pain Encounter Details Date Type Department Care Team Description 02/04/2020 Telemedicine Visit [facility] Lopez Hitchcock M D Kidney stones Nephrology- [address] [place] [address] (Primary Dx) [facility] [address] [place] [address] Drive, 6th [place] [address] Allergies Active Allergy Reactions Severity [...] (AVS ) documentation will be available through [employer] for this encounter. A total of 15 minutes was spent on the Video Call, chart review, and coordination of care with specialists. Lopez Hitchcock MD documented in this encounter Plan of Treatment Date Type Specialty Care Team Description 08/11/2020 Office Visit Obstetrics & Gynecology Young Quiñonez MD [address] [place] [address] [place] [address] [phone] Health Maintenance Due Date Last Done Comments [...] Address T ype Group Dates SAMMY CHRISTIANSON [id number] 2019-Pres P O BOX Medic aid HEALTHCARE - HEALTHCARE [place] [id number] MANAGED MEDICAID [place] documented as of this encounter
--- OUTSIDE RECORDS SUMMARY | 2020-03-17 10:10 | XMS REPORT | Summary of Care ---
:1995 Author Organization [facility] Address [address] [place] [address] Care Team Providers Name Role Phone Jessica Baker Insurance Hmo Jm Quiñonez MD Primary Care Provider Encounter Details Date Type Department Care Team Description 02/17/2020 Patient Secure [facility] Lopez Hitchcock M D Nephrology-[address] [facility] [address], [address] Entrance B [phone] [place] [address] Allergies Active Allergy Reactions Severity [...] Visit Obstetrics & Gynecology Young Quiñonez MD [address] [place] [address] [place] [address] [phone] Health Maintenance Due Date Last Done Comments [...] Address T ype Group Dates SAMMY CHRISTIANSON [id number] 2019-Pres P O BOX Medic aid HEALTHCARE - HEALTHCARE ent [id number] MANAGED MEDICAID [place] documented as of this encounter
--- OUTSIDE RECORDS SUMMARY | 2020-03-17 10:10 | XMS REPORT | Summary of Care ---
:1995 Author Organization [address] [address] Care Team Providers Name Role Phone Jessica Baker Insurance Hmo Jm Quiñonez MD Primary Care Provider Reason for Visit Reason Onset Date Comments Refill Request 02/11/2020 Encounter Details Date Type Department Care Team Description 02/11/2020 Refill [facility] Nephrology- Keyonna Hitchcock MD Refill Request [address] [address] [place] [address] [place] [address] Allergies Active Allergy Reactions [...] Visit Obstetrics & Gynecology Young Quiñonez MD [address] [place] [address] [place] [address] [phone] Health Maintenance Due Date Last Done Comments [...] Address T e Group Dates SAMMY CHRISTIANSON [id number] 2019-Pres P O BOX Medic aid HEALTHCARE - HEALTHCARE ent [id number] MANAGED MEDICAID [place] documented as of this encounter
--- OUTSIDE RECORDS SUMMARY | 2020-03-17 10:10 | XMS REPORT | Summary of Care ---
:1995 Author Organization [facility] Address [address] [place] [address] Care Team Providers Name Role Phone Jessica Baker Insurance Hmo Jm Quiñonez MD Primary Care Provider Encounter Details Date Type Department Care Team Description 02/05/2020 Patient Secure [facility] [address], [facility] 6th Floor [phone] [place] [address] Allergies Active Allergy Reactions Severity [...] Visit Obstetrics & Gynecology Young Quiñonez MD [address] [place] [address] DR. [address] [place], [place] [address] 15 [phone] Health Maintenance Due Date Last Done Comments [...] Address T ype Group Dates SAMMY CHRISTIANSON [id number] 2019-Pres P O BOX Medic aid [place] [id number] MANAGED MED[place]ID [place] documented as of this encounter
--- OUTSIDE RECORDS SUMMARY | 2020-03-17 10:10 | XMS REPORT | Summary of Care ---
:[address] [facility] - [facility] Address [address] [place] [address] Care Team Providers Name Role Phone Jessica Baker Insurance Hmo Jm Quiñonez MD Primary Care Provider Encounter Details Date Type Department Care Team Description 02/17/2020 Patient Secure [facility] Lopez Hitchcock M D Nephrology-[address] [facility] [address], [phone] Entrance B [phone] [place] [address] Allergies Active Allergy Reactions Severity [...] Telemedicine Visit Nephrology Lopez Hitchcock M D [address] [place] [phone] 08/11/2020 Office Visit Obstetrics & QuiñonezShelia M D Gynecology [address] [place] [address] DR. Son [place], [place] [address] Health Maintenance Due Date [...] Address T ype Group Dates SAMMY CHRISTIANSON [id number] 2019-Pres Alisson Manzano BOX Medic aid HEALTHCARE - HEALTHCARE [place] [id number] MANAGED MED[place]ID [place] documented as of this encounter
--- OUTSIDE RECORDS SUMMARY | 2020-03-17 10:11 | XMS REPORT | Summary of Care ---
:1995 Author Organization [facility] Address [address] [place] [address] Care Team Providers Name Role Phone Jessica Baker Insurance Hmo Jm Quiñonez MD Primary Care Provider Encounter Details Date Type Department Care Team Description 2020 Patient Secure [facility] Lopez Hitchcock M D Nephrology- [address], [address] [place] [address] Floor [phone] [place] [address] Allergies Active Allergy Reactions Severity [...] Telemedicine Visit Nephrology Lopez Hitchcock M D [address] [place] [phone] 08/11/2020 Office Visit Obstetrics & Quiñonez, Munir Johnson Gynecology [address] [place] [address] DR. Son [place], [place] [address] Health Maintenance Due Date [...] T ype Group Dates CHRISTIANSONMARIA LUZ CHRISTIANSON [id number] 2019-Pres P O BOX Medic aid HEALTHCARE - [place]CARE [place] [id number] MANA[place]ED MED[place]ID [place] documented as of this encounter
--- OUTSIDE RECORDS SUMMARY | 2020-03-17 10:11 | XMS REPORT | Summary of Care ---
:1995 Author Organization [facility] Address [address] [place] [address] Care Team Providers Name Role Phone Jessica Baker Insurance Hmo Jm Quiñonez MD Primary Care Provider Reason for Visit Reason Comments Rx Concern/Question Encounter Details Date Type Department Care Team Description 2020 Telephone [facility] Lopez Hitchcock MD Rx Concern/Question Nephrology- [address], [address] [place] [address] Floor [phone] [place] [address] Allergies Active Allergy Reactions Severity [...] 2020 12:25 PM CDTScripts were sent to [facility]. Will resend to [facility] Telephone Encounter - Skylar Ham - 2020 11:10 AM CDTAngel Nelia Dyson is a 24 year old female is calling [facility] has not received Tramadol and hydroCHLOROthiazide. Thank you. [facility] [address] [place] [address] documented in this encounter Plan of Treatment Date Type Specialty Care Team Description 02/25/2020 Telemedicine Visit Nephrology Lopez Hitchcock M D [address] [place] [phone] 08/11/2020 Office Visit Obstetrics & QuiñonezShelia M D Gynecology [address] [place] [address] DR. Son [place], [place] [address] Health Maintenance Due Date [...] Subscriber ID Effective Phone Address T [facility] Group Dates SAMMY CHRISTIANSON [id number] 2019-Pres P O BOX Medic aid HEALTHCARE - HEALTHCARE [place] [id number] MANAGED MED[place]ID [place] documented as of this encounter
--- OUTSIDE RECORDS SUMMARY | 2020-03-17 10:11 | XMS REPORT | Summary of Care ---
:1995 Author Organization [facility] Address [address] [place] [address] Care Team Providers Name Role Phone Jessica Baker Insurance Hmo Jm Quiñonez MD Primary Care Provider Encounter Details Date Type Department Care Team Description 2020 Patient Secure [facility] Lopez Hitchcock M D Nephrology- [address], [address] [place] [address] Floor [phone] [place] [address] Allergies Active Allergy Reactions Severity [...] Telemedicine Visit Nephrology Lopez Hitchcock M D [address] [place] [phone] 08/11/2020 Office Visit Obstetrics & QuiñonezShelia M D Gynecology [address] [place] [address] [phone] Health Maintenance Due Date Last Done [...] Address T e Group Dates SAMMY CHRISTIANSON [id number] 2019-Pres P O BOX Medic aid HEALTHCARE - HEALTHCARE [place] [id number] MANAGED MED[place]ID [place] documented as of this encounter
--- OUTSIDE RECORDS SUMMARY | 2020-03-17 10:11 | XMS REPORT | Summary of Care ---
:1995 Author Organization [facility] Address [address] [place] [address] Care Team Providers Name Role Phone Jessica Baker Insurance Hmo Jm Quiñonez MD Primary Care Provider Encounter Details Date Type Department Care Team Description 2020 Patient Secure [facility] Lopez Hitchcock M D Nephrology- [address], [address] [place] [address] Floor [phone] [place] [address] Allergies Active Allergy Reactions Severity [...] Telemedicine Visit Nephrology Lopez Hitchcock M D [address] [place] [phone] 08/11/2020 Office Visit Obstetrics & Quiñonez, Munir Johnson Gynecology [address] [place] [address] DR. Son [place], [place] [address] Health Maintenance Due Date [...] T ype Group Dates CHRISTIANSONMARIA LUZ CHRISTIANSON [id number] 2019-Pres P O BOX Medic aid HEALTHCARE - HEALTHCARE [place] [id number] MANAGED MEDICAID [place] documented as of this encounter
--- OUTSIDE RECORDS SUMMARY | 2020-03-17 10:11 | XMS REPORT | Summary of Care ---
:1995 Author Organization [facility] Address [address] [place] [address] Care Team Providers Name Role Phone Jessica Baker Insurance Hmo Jm Quiñonez MD Primary Care Provider Reason for Visit Reason Onset Date Comments Refill Request 2020 Encounter Details Date Type Department Care Team Description 2020 Refill [facility] Lopez Hitchcock MD Refill Request Nephrology-[address] [place] [address] 2855 [facility], Entrance [place] [phone] Allergies Active Allergy Reactions Severity Noted [...] Telemedicine Visit Nephrology Lopez Hitchcock M D [address] [place] [phone] 08/11/2020 Office Visit Obstetrics & Quiñonez, Munir Johnson Gynecology [address] [place] [address] DR. Row[address] [place] [address] Health Maintenance Due Date Last [...] Address T ype Group Dates SAMMY BAZANINA [id number] 2019-Pres P O BOX Medic aid HEALTHCARE - HEALTHCARE [place] [id number] MANAGED MEDICAID [place] documented as of this encounter
--- OUTSIDE RECORDS SUMMARY | 2020-03-17 10:11 | XMS REPORT | Summary of Care ---
:1995 Author Organization [facility] - [facility] Address [address] [place] [address] Care Team Providers Name Role Phone Jessica Baker Insurance Hmo Jm Quiñonez MD Primary Care Provider Reason for Visit Reason Comments Rx Concern/Question Tramadol Encounter Details Date Type Department Care Team Description 2020 Telephone [facility] Lopez Hitchcock MD Rx Concern/Question Nephrology- [address] (Tramadol) [place] [address] [place], [place] [phone] [address], 6th Floor [phone] [place] [address] Allergies Active Allergy Reactions Severity [...] previous US and CT Referral to [facility] [employer] She is established with Dr. Quiñonez. Routed message to Dr. Quiñonez. Telephone Encounter - Remedios Nettles - 2020 1:52 PM CDTPt called stating her Pharmacy called patient and told her that her tramadol. States they need the diagnosis codes. documented in this encounter Plan of Treatment Date Type Specialty Care Team Description 02/25/2020 Telemedicine Visit Nephrology Lopez Hitchcock M D [address] [place] [phone] 08/11/2020 Office Visit Obstetrics & Shelia Quiñonez M D Gynecology [address] [place] [address] [place] [address] 15 [phone] Health Maintenance Due Date Last Done Comments [...] / Subscriber ID Effective Phone Address T [facility] Group Dates SAMMY CHRISTIANSON [id number] 2019-Pres P O BOX Medic aid HEALTHCARE - HEALTHCARE [place] [id number] MANAGED MED[place]ID [place] documented as of this encounter
--- OUTSIDE RECORDS SUMMARY | 2020-03-17 10:12 | XMS REPORT | Summary of Care ---
:1995 Author Organization [facility] Address [address] [place] [address] Care Team Providers Name Role Phone Jessica Baker Insurance Hmo Jm Quiñonez MD Primary Care Provider Encounter Details Date Type Department Care Team Description 02/28/2020 Orders Only [facility] Doctor Unassigned, No [address] [facility] [place] [address] [address] [place] [phone] Allergies Active Allergy Reactions Severity Noted Date [...] Visit Obstetrics & Gynecology Young Quiñonez MD [address] [place] [address] DR. Son [place], [place] [address] [phone] Health Maintenance Due Date Last Done Comments [...] Address T e Group Dates SAMMY CHRISTIANSON [id number] 2019-Pres P O BOX Medic aid HEALTHCARE - HEALTHCARE [place] [id number] MANAGED MEDICAID [place] documented as of this encounter
--- OUTSIDE RECORDS SUMMARY | 2020-03-17 10:12 | XMS REPORT | Summary of Care ---
:1995 Author Organization [facility] Address [address] [place] [address] Care Team Providers Name Role Phone Jessica Baker Insurance Hmo Jm Quiñonez MD Primary Care Provider Reason for Visit Reason Comments Kidney Problem Encounter Details Date Type Department Care Team Description 02/25/2020 Telemedicine Visit [facility] Lopez Hitchcock M D Pain (Primary Dx) Nephrology- [address] [place] [address] [place], [place] [phone] [address], 6th Floor [phone] [place] [address] Allergies Active Allergy Reactions Severity [...] (AVS ) documentation will be available through [employer] for this encounter. A total of 15 minutes was spent on the Video Call, chart review, and coordination of care with specialists. Lopez Hitchcock MD documented in this encounter Plan of Treatment Date Type Specialty Care Team Description 08/11/2020 Office Visit Obstetrics & Gynecology Young Quiñonez MD [address] [place] [address] [address] [phone] Health Maintenance Due Date Last Done Comments [...] Address T e Group Dates SAMMY CHRISTIANSON [id number] 2019-Pres Alisson RYAN Medic aid HEALTHCARE - HEALTHCARE ent [id number] MANAGED MEDICAID [place] documented as of this encounter
--- OUTSIDE RECORDS SUMMARY | 2020-03-17 10:12 | XMS REPORT | Summary of Care ---
:1995 Author Organization [facility] Address [address] [place] [address] Care Team Providers Name Role Phone Jessica Baker Insurance Hmo Jm Quiñonez MD Primary Care Provider Reason for Referral MRI/CAT Scan (STAT) Status Reason Specialty Diagnoses / Referred By Referred To Procedures Contact Contact New Request Diagnostic Diagnoses Flank pain Acute bilateral low back pain without sciatica Omari Hurst, Radiology Procedures CT ABDOMEN PELVIS WO CONTRAST [address] [phone] Reason for Visit Reason Comments Back Pain Auth/Cert Status Reason Specialty Diagnoses / Referred By Referred To Procedures Contact Contact Emergency Medicine [facility] Em ergency Dept [address] [place] [address] Fax: Encounter Details Date Type Department Care Team Description 02/28/2020 Emergency [facility] Andreia Norton , [address] [address] [phone] Flank pain (Primary Dx); Department Omari Hurst, [address] [address] Acute bilateral low back pain without sc iatica [address] [place], [place] [phone] Allergies Active Allergy Reactions Severity Noted Date [...] this encounter Discharge Instructions InstructionsPrOmari byrd Dharmesh, FIBER ANALYST - 02/28/2020DIAGNOSIS 1. Flank, back pain NO LIFE-THREATENING FINDINGS ON TODAY'S EXAM. RECOMMEND FOLLOW-UP WITH A PRIMARY CARE PROVIDER OR SPECIALIST IN 2-5 DAYS, ESPECIALLY IF NO IMPROVEMENT IN SYMPTOMS. MAY FOLLOW-UP WITH A PROVIDER OF YOUR CHOICE, SUCH : 1. A PHYSICIAN OF YOUR CHOICE 2. [address] [place] [address], [address] [place] [address]; [phone] 3. [facility], [address], [place]; [phone] OR, IF YOU WISH TO FOLLOW-UP WITHIN THE [facility], MAY TRY THESE OPTIONS (CLINIC APPOINTMENTS AVAILABLE ON [id number] BASIS): 1. SCHEDULE AN APPOINTMENT ONLINE AT WWW.[facility] 2. OR CALL THE [facility] ACCESS [facility]ENTER AT OR 3. OR CALL YOUR [facility] PHYSICIAN'S OFFICE DIRECTLY IF YOU ARE ALREADY AN ESTABLISHED [facility] PATIENT. RETURN TO ER FOR WORSENING OF SYMPTOMS. AttachmentsThe following attachments cannot be sent through Care Everywhere. Flank Pain, Uncertain Cause (Polish)Back Pain (Acute or Chronic) (Polish) documented in this encounter ED Notes Dana [...] Visit Obstetrics & Gynecology Young Quiñonez MD [address] [place] [address] DR. Rowe [address] [place] [address] [phone] Name Type Priority Associated Diagnoses Date/Ti me [...] Marquez I, David Zamora MD., have reviewed [facility] study and agree with the above report. Performing Organization Address City/State/Zipcode Phone Number PACS/VR/DOSE Urinalysis (02/28/2020 8:08 PM CDT) Pathologist Sig nature APPEARANCE Clear Clear [facility] COLOR Yellow Yellow [facility] PH 6.0 4.8 - 8.0 [facility] SP GRAVITY 1.025 1.003 - 1.030 [facility] GLU U QUAL Normal Normal [facility] BLOOD 2+ (A) Negative [facility] KETONES Negative Negative [facility] PROTEIN Negative Negative [facility] UROBILIN Normal Normal [facility] BILIRUBIN Negative Negative [facility] NITRITE Negative Negative [facility] LEUK ANJELICA Negative Negative [facility] RBC/HPF 10 (H) 0 - 3 HPF [facility] WBC/HPF 2 0 - 5 HPF [facility] BACTERIA Few (A) Negative [facility] MUCOUS Moderate (A) Negative LPF [facility] SQ EPITH 1 HPF [facility] HYAL CAST 1 <=2 LPF [facility] Specimen Urine - URINE, CLEAN CATCH Performing Organization Address City/State/Zipcode Phone Number [facility] CLIA: [id number] [place] [address] Basic Metabolic Panel (NA, K, CL, CO2, GLUCOSE, BUN, CREATININE, CA) (02/28/2020 8:08 PM CDT) Pathologist [facility] nature NA 140 135 - 145 mmol/L [facility] K 3.9 3.5 - 5.0 mmol/L [facility] CL 104 98 - 108 mmol/L [facility] CO2 TOTAL 23 23 - 31 mmol/L [facility] AGAP 13 2 - 16 [facility] BUN 13 7 - 23 mg/dL [facility] GLUCOSE 94 70 - 110 mg/dL [facility] CREATININE 0.83 0.50 - 1.04 [facility] mg/dL [facility] CALCIUM 9.9 8.6 - 10.6 mg/dL [facility] eGFR Calculation 83.8 mL/min/1.73m2 [facility] (Non-) [facility] Y eGFR Calculation 101.5 mL/min/1.73m2 [facility] () [facility] Specimen Blood - VENOUS Narrative Performed At Association of Glomerular Filtration Rate (GFR) [facility] and Staging of Kidney Disease* + [...] tests). Performing Organization Address City/State/Zipcode Phone Number [facility] CLIA: [id number] [place], [place] [id number] LABORAT[address] CBC with Differential (02/28/2020 8:08 PM CDT) Pathologist Sig nature WBC 6.84 4.30 - 11.10 [facility] 10*3/L [facility] RBC 4.73 3.93 - 5.25 [facility] 10*6/L [facility] HGB 13.5 11.6 - 15.0 [facility] g/dL [facility] HCT 40.1 35.7 - 45.2 % [facility] MCV 84.8 80.6 - 95.5 fL [facility] MCH 28.5 25.9 - 32.8 pg [facility] MCHC 33.7 31.6 - 35.1 [facility] g/dL [facility] RDW-SD 38.3 (L) 39.0 - 49.9 fL [facility] RDW-CV 12.5 12.0 - 15.5 % [facility] PLT 382 (H) 166 - 358 [facility] 10*3/L [facility] MPV 10.3 9.5 - 12.9 fL [facility] NRBC/100 WBC 0.0 0.0 - 10.0 /100 [facility] WBCs [facility] NRBC x10^3 <0.01 10*3/L [facility] GRAN MAT (NEUT) % 53.6 % [facility] IMM GRAN % 0.10 % [facility] LYMPH % 37.0 % [facility] MONO % 6.4 % [facility] EOS % 2.6 % [facility] BASO % 0.3 % [facility] GRAN MAT x10^3(ANC) 3.66 1.88 - 7.09 [facility] 10*3/uL [facility] IMM GRAN x10^3 <0.03 0.00 - 0.06 [facility] 10*3/uL [facility] LYMPH x10^3 2.53 1.32 - 3.29 [facility] 10*3/uL [facility] MONO x10^3 0.44 0.33 - 0.92 [facility] 10*3/uL [facility] EOS x10^3 0.18 0.03 - 0.39 [facility] 10*3/uL [facility] BASO x10^3 <0.03 0.01 - 0.07 [facility] 10*3/uL [facility] Specimen Blood - VENOUS Performing Organization Address City/State/Zipcode Phone Number [facility] CLIA: [id number] [place] [address] POCT Test (02/28/2020 8:07 PM CDT) Pathologist Sig nature POCT PREG negative POCT PREG LOT # [id number] POCT PREG TEST DATE 08/10/2021 Specimen Urine [...] ONCE, 1 dose, 02/28/20 at 2130, [place], 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
--- OUTSIDE RECORDS SUMMARY | 2020-03-17 10:12 | XMS REPORT | Summary of Care ---
:1995 Author Organization [facility] Address [address] [place] [address] Care Team Providers Name Role Phone BakerJessica Insurance Hmo Jm Vargas MD Primary Care Provider Reason for Visit Reason Comments Assessment TRIAGE Encounter Details Date Type Department Care Team Description 03/09/2020 Telephone [facility] Women's Shelia Vargas MD Assessment (TRIAGE) Healthcare- [address] [place] [address] [address], [address] [place] [address] [place] [address] [phone] Allergies Active Allergy Reactions Severity Noted Date Comments Metoclopramide Hcl Anxiety 07/12/2019 Patient s ays she gets figity, angry and mean documented as of this encounter (statuses as of 03/09/2020) Medications Medication Sig Dispensed Refills Start Date [...] as of this encounter (statuses as of 03/09/2020) Active Problems Problem Noted Date Anxiety disorder, unspecified type 01/05/2020 Insomnia, unspecified type 01/05/2020 Other depression 08/13/2019 Cervical Papanicolaou smear negative within last 12 mo [facility] 06/19/2019 Overview: 12/2018 NIL pap , see scanned records documented as of this encounter (statuses as of 03/09/2020) Resolved Problems Problem Noted Date Resolved Date [...] as of this encounter (statuses as of 03/09/2020) Immunizations Name Administration Dates Next Due Influenza [...] this encounter Miscellaneous Notes Telephone Encounter - Fili Lazo - 03/09/2020 12:02 PM CDTPatient states that she has had a dry cough for the past two weeks Denied loss of taste or smell Patient has hx of Asthma but is not using meds. Patient states that she coughed and felt like one side of her chest caved in and now she can't get agood breath just in the past few minutes. Pain scale 9/[address] Vargas, patient advised to be seen at Urgent Care or ER Patient verbalized her understanding. elephone Encounter - Cynthia Alexis - 03/09/2020 11:53 AM CDTPt states she is having anxiety issues currently. Pt is having trouble breathing current and is veryemotional. Pt states she see DR VARGAS for issues. PSS Diana took triage to pass to nurse. documented in this encounter Plan of Treatment Date Type Specialty Care Team Description 08/11/2020 Office Visit Obstetrics & Gynecology Young Vargas MD [address] [place] [address] [place] [address] [phone] Health Maintenance Due Date Last Done Comments HPV VACCINES (1 - 2-dose series) 2006 PAP SMEAR 02/19/2016 INFLUENZA VACCINE (#1) 2020 02/06/2019 Depression Screening 09/01/2020 09/02/2019, 09/02/2019 DTaP,Tdap,and Td Vaccines (2 - Td) 05/21/2029 05/21/2019 PNEUMOCOCCAL 0-64 YEARS COMBINED SERIES Discontinued documented as of this encounter Results Not on filedocumented in this encounter Insurance Payer Benefit Plan / Subscriber ID Effective Phone Address T e Group Dates SAMMY CHRISTIANSON [id number] 2019-Pres P [address] BOX Medic aid HEALTHCARE - HEALTHCARE [place] [id number] MANAGED MEDICAID [place] documented as of this encounter
--- OUTSIDE RECORDS SUMMARY | 2020-03-17 10:13 | XMS REPORT | Summary of Care ---
:1995 Author Organization [address] [address] Care Team Providers Name Role Phone Jessica Baker Insurance Hmo Jm Quiñonez MD Primary Care Provider Reason for Visit Reason Onset Date Comments Refill Request 03/04/2020 Encounter Details Date Type Department Care Team Description 03/04/2020 Refill [facility] Nephrology- Keyonna Hitchcock MD Refill Request [address] [id number] [place] [address] [place] [address] Allergies Active Allergy Reactions Severity Noted Date Comments Metoclopramide Hcl Anxiety 07/12/2019 Patient s ays she gets figity, angry and mean documented as of this encounter (statuses as of 03/11/2020) Medications Medication Sig Dispensed Refills Start Date [...] as of this encounter (statuses as of 03/11/2020) Active Problems Problem Noted Date Anxiety disorder, unspecified type 01/05/2020 Insomnia, unspecified type 01/05/2020 Other depression 08/13/2019 Cervical Papanicolaou smear negative within last 12 mo [facility] 06/19/2019 Overview: 12/2018 NIL pap , see scanned records documented as of this encounter (statuses as of 03/11/2020) Resolved Problems Problem Noted Date Resolved Date [...] as of this encounter (statuses as of 03/11/2020) Immunizations Name Administration Dates Next Due Influenza [...] been in contact with No / Unsure 03/09/2020 1:12 PM CDT someone who was confirmed or 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 documented as of this encounter Last Filed Vital Signs Not on filedocumented in this encounter Miscellaneous Notes Telephone Encounter - Za Enriquez RN - 03/11/2020 10:32 AM CDT Received erx refill request for: Requested Prescriptions Pending Prescriptions Disp Refills hydroCHLOROthiazide 25 mg tablet 90 tablet 1 Sig: Take 0.5 tablets by mouth daily. Last filled: Ordered Status Priority Ordering User Department 02/18/20 Sent Routine Za Enriquez RN NEPHROLOGY [facility] Outpatient Medication Detail Disp Refills Start End STEPHANIE hydroCHLOROthiazide 25 mg tablet 90 tablet 1 2020 -- Sig: Take 0.5 tablets by mouth daily. Sent to pharmacy as: hydroCHLOROthiazide 25 mg tablet Class: eRX Route: Oral Order: [id number] Date/Time Signed: 2020 12:26 E-Prescribing Status: Receipt confirmed by pharmacy (2020 12:26 PM CDT) Duplicate refill request, Denied documented in this encounter Plan of Treatment Date Type Specialty Care Team Description 08/11/2020 Office Visit Obstetrics & Gynecology Young Quiñonez MD [address] [place] [address] [address]. Rowe [address] [place] [address] [phone] Health Maintenance Due Date Last Done Comments [...] Last Indicated Resolved Time COVID-19 Rule Out 03/09/2020 03/09/2020 03/09/2020 2: 24 PM CDT documented as of this encounter Insurance Payer Benefit Plan / Subscriber ID Effective Phone Address [facility] Group Dates SAMMY CHRISTIANSON [id number] 2019-[address] [employer] [place] [id number] MANAGED MEDICAID [place], [place] documented as of this encounter
--- OUTSIDE RECORDS SUMMARY | 2020-03-17 10:13 | XMS REPORT | Summary of Care ---
:1995 Author Organization [facility] - Health Address [address] [place] [address] Care Team Providers Name Role Phone Jessica Baker Insurance Hmo Jm Quiñonez MD Primary Care Provider Encounter Details Date Type Department Care Team Description 03/09/2020 Orders Only [facility] Doctor Unassigned, No [address] [facility] Name [place] [id number] [address] [place] [phone] Allergies Active Allergy Reactions Severity Noted Date [...] Visit Obstetrics & Gynecology Young Quiñonez MD [address] [place] [address] DR. Rowe [address] [place] [address] 15 [phone] Health Maintenance Due Date Last Done Comments HPV VACCINES (1 - 2-dose series) 2006 PAP SMEAR 02/19/2016 INFLUENZA VACCINE (#1) 2020 02/06/2019 Depression Screening 09/01/2020 09/02/2019, 09/02/2019 DTaP,Tdap,and Td Vaccines (2 - Td) 05/21/2029 05/21/2019 PNEUMOCOCCAL 0-64 YEARS COMBINED SERIES Discontinued documented as of this encounter Procedures Procedure Name Priority Date/Time Associated Diagnosis Comme nts CONSENT/REFUSAL FOR Routine 03/09/2020 1:11 PM CDT DIAGNOSIS AND TREATMENT documented in this encounter Results Not on filedocumented in this encounter Insurance Payer Benefit Plan / Subscriber ID Effective Phone Address T ype Group Dates SAMMY CHRISTIANSON [id number] 2019-Pres [address] [employer] [place] [id number] MANAGED MEDICAID [place], [place] documented as of this encounter
--- OUTSIDE RECORDS SUMMARY | 2020-03-17 10:13 | XMS REPORT | Summary of Care ---
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 1.04 [facility] mg/dL HOSPITAL LABORATORY CALCIUM 9.2 8.6 - 10.6 mg/dL [facility] LABORATORY eGFR Calculation 113.1 mL/min/1.73m2 [facility] (Non-[facility]) [facility] LABORATOR Y eGFR Calculation 137.0 mL/min/1.73m2 [facility] LABORATORY Specimen Blood - VENOUS Narrative Performed [...] tests). Performing Organization Address City/State/Zipcode Phone Number [facility] CLIA: [id number] [place], [place] [id number] LABORATORY [address] CBC with Differential (03/09/2020 1:49 PM CDT) [facility] WBC 5.97 4.30 - 11.10 [facility] 10*3/L [facility] RBC 4.53 3.93 - 5.25 [facility] 10*6/L [facility] HGB 12.9 11.6 - 15.0 g/dL [facility] LABORAT[facility] HCT 38.5 35.7 - 45.2 % [facility] LABORATORY MCV 85.0 80.6 - 95.5 fL [facility] LABOR[facility]ORY MCH 28.5 25.9 - 32.8 pg [facility] LABORATORY MCHC 33.5 31.6 - 35.1 g/dL [facility] LABOR[facility]ORY RDW-SD 39.1 39.0 - 49.9 fL [facility] LABOR[facility] RDW-CV 12.7 12.0 - 15.5 % [facility] LABOR[facility] PLT 347 166 - 358 [facility] 10*3/L HOSPITAL LABORATORY MPV 9.9 9.5 - 12.9 fL [facility] LABORATORY NRBC/100 WBC 0.0 0.0 - 10.0 /100 [facility] WBCs [facility] NRBC x10^3 <0.01 10*3/L [facility] LABORATORY GRAN MAT (NEUT) % 52.6 % [facility] LABORATORY IMM GRAN % 0.00 % [facility] LABOR[facility] LYMPH % 34.8 % [facility] LABOR[facility] MONO % 6.0 % [facility] LAB[facility] EOS % 5.9 % [facility] LABOR[facility] BASO % 0.7 % [facility] LABORATORY GRAN MAT x10^3(ANC) 3.14 1.88 - 7.09 [facility] 10*3/uL [facility] LAB[facility] IMM GRAN x10^3 <0.03 0.00 - 0.06 [facility] 10*3/uL HOSPITAL LABORATORY LYMPH x10^3 2.08 1.32 - 3.29 [facility] 10*3/uL [facility] MONO x10^3 0.36 0.33 - 0.92 [facility] 10*3/uL HOSPITAL LABORATORY EOS x10^3 0.35 0.03 - 0.39 [facility] 10*3/uL HOSPITAL LABORATORY BASO x10^3 0.04 0.01 - 0.07 [facility] 10*3/uL [facility] LAB[facility] Specimen Blood - VENOUS Performing Organization Address City/State/Zipcode Phone Number [facility] CLIA: [id number] [place] [address] Urinalysis (03/09/2020 1:49 PM CDT) Pathologist Sig nature APPEARANCE Clear Clear [facility] LABORATORY COLOR Yellow Yellow [facility] LABOR[facility] PH 7.0 4.8 - 8.0 [facility] LABORAT[facility] SP GRAVITY 1.018 1.003 - 1.030 [facility] LABOR[facility] GLU U QUAL Normal Normal [facility] LABORAT[facility] BLOOD 2+ (A) Negative [facility] KETONES Negative Negative [facility] PROTEIN Negative Negative [facility] LAB[facility] UROBILIN Normal Normal [facility] BILIRUBIN Negative Negative [facility] LAB[facility] NITRITE Negative Negative [facility] LABOR[facility]ORY LEUK ANJELICA Negative Negative [facility] LAB[facility] RBC/HPF 73 (H) 0 - 3 HPF [facility] LAB[facility] WBC/HPF 1 0 - 5 HPF [facility] BACTERIA Negative Negative [facility] MUCOUS Slight (A) Negative LPF [facility] LAB[facility] SQ EPITH 4 HPF [facility] LABOR[facility]ORY Specimen Urine - URINE, CLEAN CATCH Performing Organization Address City/State/Zipcode Phone Number [facility] CLIA: [id number] [place] [address] POCT TEST (03/09/2020 1:45 PM CDT) Pathologist Sig nature POCT PREG negative On board controls acceptable present with C Line Specimen Urine - URINE, CLEAN CATCH documented in this encounter Visit Diagnoses Diagnosis Cough - Primary Tachycardia Tachycardia, unspecified Renal stones Calculus of kidney Flank pain Abdominal pain, unspecified site documented in this encounter Administered Medications Medication Order MAR Action Action Date Dose Rate Site ketorolac (TORADOL) injection 30 mg 30 mg, Slow IV Push, Q6H, 4 doses, First dose on Sat03/09/20 at 1800, Last dose on Sat03/10/20 at 1200, Routine, family member caretaker elena Calle medication: ANAMARIA TAM Medication Order MAR Action Action Date Dose Rate Site morpHINE injection 4 mg Given 03/09/2020 2:58 PM CDT 4 mg 4 mg, Slow IV Push, ONCE, 1 dose, Sat03/09/20 at 1600, STAT NaCl 0.9% (NS) bolus infusion New Bag 03/09/2020 3:03 PM CDT 1,000 mL 999 mL/hr 1,000 mL at 999 mL/hr, 1,000 mL, IV Infusion, ONCE, 1 dose, Sat03/09/20 at 1500, STAT ondansetron (ZOFRAN (PF)) injection 4 mg Given 03/09/2020 2:58 PM CDT 4 mg 4 mg, Slow IV Push, ONCE, 1 dose, Sat03/09/20 at 1600, [place] documented in this encounter Additional Health Concerns Infection Onset Date Last Indicated Resolved Time COVID-19 Rule Out 03/09/2020 03/09/2020 03/09/2020 2: 24 PM CDT documented as of this encounter Insurance Payer Benefit Plan / Subscriber ID Effective Phone Address T ype Group Dates SAMMY CHRISTIANSON [id number] 2019-Pres Alisson RYAN Medic aid HEALTHCARE - HEALTHCARE ent [id number] MANAGED MEDICAID [place], [place] documented as of this encounter
--- NOTE | 2020-03-17 11:25 | EDPHYS ---
Physician Documentation [facility] Name: Natanael Dyson Age: 25 yrs Sex: Female : 1995 Arrival Date: 03/17/2020 Time: 10:03 Bed 20 Private MD: ED Physician Miquel Rios HPI: 03/17 14:37 This 25 yrs old Female presents to ER via Ambulatory with complaints of kdr Depression. 14:37 The patient presents to the emergency department with depression, Post . Onset: kdr The symptoms/episode began/occurred gradually, 3 month(s) ago. Past psychiatric history: Prior diagnosis: no previous psychiatric diagnosis known. Associated signs and symptoms: The patient has no apparent associated signs or symptoms. Severity of symptoms: At their worst the symptoms were mild in the emergency department the symptoms are unchanged. The patient has not experienced similar symptoms in the past. The patient has not recently seen a physician, had been on Prozac without relief. 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 - Social history:: Smoking status: Patient denies any tobacco usage or history of. ROS: 14:37 Constitutional: Negative for fever, chills, and weight loss, Eyes: Negative for injury, kdr pain, redness, and discharge, ENT: Negative for injury, pain, and discharge, Neck: Negative for injury, pain, and swelling, Cardiovascular: Negative for chest pain, palpitations, and edema, Respiratory: Negative for shortness of breath, cough, wheezing, and pleuritic chest pain, Abdomen/GI: Negative for abdominal pain, nausea, vomiting, diarrhea, and constipation, Back: Negative for injury and pain, : Negative for injury, bleeding, discharge, and swelling, MS/Extremity: Negative for injury and deformity, Skin: Negative for injury, rash, and discoloration, Neuro: Negative for headache, weakness, numbness, tingling, and seizure activity. Allergy/Immunology: Negative for hives, rash, and allergies, Endocrine: Negative for neck swelling, polydipsia, polyuria, polyphagia, and marked weight changes, Hematologic/Lymphatic: Negative for swollen nodes, abnormal bleeding, and unusual bruising. 14:37 Psych: Positive for anxiety, depression, insomnia, Negative for drug dependence, alcohol dependence, auditory hallucinations, visual hallucinations, homicidal ideation, suicide gesture, suicidal ideation, acute changes. Exam: 14:37 Constitutional: This is a well developed, well nourished patient who is awake, alert, kdr and in no acute distress. Head/Face: Normocephalic, atraumatic. Eyes: Pupils equal round and reactive to light, extra-ocular motions intact. Lids and lashes normal. Conjunctiva and sclera are non-icteric and not injected. Cornea within normal limits. Periorbital areas with no swelling, redness, or edema. Neck: Trachea midline, no thyromegaly or masses palpated, and no cervical lymphadenopathy. Supple, full range of motion without nuchal rigidity, or vertebral point tenderness. No Meningismus. Chest/axilla: Normal chest wall appearance and motion. Nontender with no deformity. No lesions are appreciated. Cardiovascular: Regular rate and rhythm with a normal S1 and S2. No gallops, murmurs, or rubs. Normal PMI, no JVD. No pulse deficits. Respiratory: Lungs have equal breath sounds bilaterally, clear to auscultation and percussion. No rales, rhonchi or wheezes noted. No increased work of breathing, no retractions or nasal flaring. Abdomen/GI: Soft, non-tender, with normal bowel sounds. No distension or tympany. No guarding or rebound. No evidence of tenderness throughout. Back: No spinal tenderness. No costovertebral tenderness. Full range of motion. Skin: Warm, dry with normal turgor. Normal color with no rashes, no lesions, and no evidence of cellulitis. MS/ Extremity: Pulses equal, no cyanosis. Neurovascular intact. Full, normal range of motion. Neuro: Awake and alert, GCS 15, oriented to person, place, time, and situation. Cranial nerves II-XII grossly intact. Motor strength 5/5 in all extremities. Sensory grossly intact. Cerebellar exam normal. Normal gait. 14:37 Psych: Behavior/mood is cooperative, depressed, Affect is flat, Oriented to person, place, time, Patient has no thoughts/intents to harm self or others. Judgement / Insight is normal. Delusions/hallucinations are not present. Vital Signs: 10:22 BP 125 / 88; Pulse 115; Resp 18 S; Temp 98.1; Pulse Ox 100% on R/A; Weight 59.87 kg; iw Height 5 ft. 2 in. (157.48 cm); 11:30 BP 124 / 86; Pulse 97; Resp 16; Pulse Ox 100% ; rb3 10:22 Body Mass Index 24.14 (59.87 kg, 157.48 cm) iw MDM: 11:24 Patient medically screened. kdr 14:49 Data reviewed: vital signs, nurses notes. Counseling: I had a detailed discussion with kdr the patient and/or guardian regarding: the historical points, exam findings, and any diagnostic results supporting the discharge/admit diagnosis, the need for outpatient follow up. Physician consultation: Jesse Loza MD. Administered Medications: 11:28 Drug: Tylenol 1000 mg Route: PO; rb3 11:54 Not Given (Pt. wanted to leave before pharmacy arrived; provider notified, gave verbal rb3 order to discharge with prescription): Wellbutrin 150 mg PO once Disposition: 03/17/20 11:24 Discharged to Home. Impression: Depression. - Condition is Stable. - Discharge Instructions: Depression and Baby Blues. - Prescriptions for Wellbutrin XL 150 mg Oral tablet extended release 24 hr - take 1 tablet by ORAL route once daily in the morning .; 14 tablet. - Medication Reconciliation Form, Thank You Letter form. - Follow up: Private Physician; When: 2 - 3 days; Reason: If symptoms return, Further diagnostic work-up, Recheck today's complaints, Continuance of care, Re-evaluation by your physician. - Problem is an ongoing problem. - Symptoms have improved. Signatures: Miquel Rios MD MD kdr Vania Loo, RN RN iw Barbara Simon, RN RN rb3 Corrections: (The following items were deleted from the chart) 11:59 11:24 03/17/2020 11:24 Discharged to Home. Impression: Depression. Condition rb3 is Stable. Forms are Medication Reconciliation Form, Thank You Letter, Antibiotic Education, Prescription Opioid Use. Follow up: Private Physician; When: 2 - 3 days; Reason: If symptoms return, Further diagnostic work-up, Recheck today's complaints, Continuance of care, Re-evaluation by your physician. Problem is an ongoing problem. Symptoms have improved. kdr
--- NOTE | 2020-03-17 11:25 | ER ---
Nurse's Notes [facility] Name: Natanael Dyson Age: 25 yrs Sex: Female : 1995 Arrival Date: 03/17/2020 Time: 10:03 Bed 20 Private MD: Diagnosis: Depression Presentation: 03/17 10:19 Chief complaint: Patient states: feels withdrawn and can't eat or drink, thinks she has iw post depression, has been up all night crying and now has a migraine, feels very anxious, had her baby 7 months ago, feelings have been coming and going but got bad over past week, denies wanting to harm herself or the baby , has hx of anxiety when she was younger. Coronavirus screen: At this time, the client does not indicate any symptoms associated with coronavirus-19. Ebola Screen: Patient negative for fever greater than or equal to 101.5 degrees Fahrenheit, and additional compatible Ebola Virus Disease symptoms Patient denies exposure to infectious person. Patient denies travel to an Ebola-affected area in the 21 days before illness onset. No symptoms or risks identified at this time. Initial Sepsis Screen: Does the patient meet any 2 criteria? No. Patient's initial sepsis screen is negative. Does the patient have a suspected source of infection? No. Patient's initial sepsis screen is negative. Risk Assessment: Do you want to hurt yourself or someone else? Patient reports no desire to harm self or others. Onset of symptoms was March 06, 2020. 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 - Social history:: Smoking status: Patient denies any tobacco usage or history of. Screenin:30 Abuse screen: Denies threats or abuse. Nutritional screening: decreased appetite. rb3 Tuberculosis screening: No symptoms or risk factors identified. Fall Risk None identified. Assessment: 10:30 General: Appears distressed, Behavior is crying, Reports fatigue for Denies rb3 Suicidal/homicidal ideation. denies wanting to hurt her seven month old son. Reports that she struggles with depression, anxiety, and she thinks she has post depression. Pain: Complains of pain in left upper quadrant and left lower quadrant Pain currently is 3 out of 10 on a pain scale. Neuro: Level of Consciousness is awake, alert, obeys commands, Oriented to person, place, time, situation. Cardiovascular: Patient's skin is warm and dry. Respiratory: Airway is patent Respiratory effort is even, unlabored, Respiratory pattern is regular, symmetrical. GI: Reports nausea, vomiting. : No signs and/or symptoms were reported regarding the genitourinary system. 11:25 Reassessment: Sent fax to pharmacy for Wellbutrin. rb3 11:28 Reassessment: Patient appears in no apparent distress at this time. Discharge pending, rb3 waiting for pharmacy to bring the Wellbutrin. Pt is no longer crying. 11:43 Reassessment: Called pharmacy to see when the medication would be brought to the floor. rb3 Jayy stated, "In about two minutes.". 11:49 Reassessment: Patient appears in no apparent distress at this time. Patient and/or rb3 family updated on plan of care and expected duration. Pain level reassessed. Patient is alert, oriented x 3, equal unlabored respirations, skin warm/dry/pink. Patient states feeling better. Patient states symptoms have improved. Psych: 10:30 Subjective: Patient's mood is sad, Delusions are denied, Hallucinations are denied rb3 Having thoughts of denies suicidal ideation and homicidal ideation. Objective: Patient is cooperative, Speech is normal, Affect is appropriate. Suicide Risk Assessment: Sad Person Scale: Sex of patient: Female: Score 0 points. Age of patient: Score 1 point if patient 15-34. Depression: Score 1 point if signs of depression are present. Previous Attempt: Score 0 point if patient has not previously attempted suicide. Substance Abuse: Score 0 point if patient does not abuse alcohol or drugs. Rational Thinking: Score 0 point if patient has rational thinking. Social Support: Score 0 if social support is present/available. Organized Plan: Score 0 if patient did not have an organized plan in place. Relationship: Score 0 point if patient has a spouse or domestic partner. Chronic Sickness: Score 0 point if patient does not have a chronic illness, debilitating, or severe disorder. Pt denies substance abuse. Commitment: Patient will be a voluntary commitment. Vital Signs: 10:22 BP 125 / 88; Pulse 115; Resp 18 S; Temp 98.1; Pulse Ox 100% on R/A; Weight 59.87 kg; iw Height 5 ft. 2 in. (157.48 cm); 11:30 BP 124 / 86; Pulse 97; Resp 16; Pulse Ox 100% ; rb3 10:22 Body Mass Index 24.14 (59.87 kg, 157.48 cm) iw ED Course: 10:03 Patient arrived in ED. ag5 10:22 Triage completed. iw 10:22 Arm band placed on. iw 10:30 Patient has correct armband on for positive identification. Bed in low position. Call rb3 light in reach. Side rails up X 1. Pulse ox on. NIBP on. Warm blanket given. 10:33 Miquel Rios MD is Attending Physician. kdr 11:59 No provider procedures requiring assistance completed. Patient did not have IV access rb3 during this emergency room visit. Administered Medications: 11:28 Drug: Tylenol 1000 mg Route: PO; rb3 11:54 Not Given (Pt. wanted to leave before pharmacy arrived; provider notified, gave verbal rb3 order to discharge with prescription): Wellbutrin 150 mg PO once Outcome: 11:24 Discharge ordered by . kdr 11:59 Discharged to home ambulatory. rb3 11:59 Condition: stable 11:59 Discharge instructions given to patient, Instructed on discharge instructions, follow up and referral plans. medication usage, Demonstrated understanding of instructions, follow-up care, medications, Prescriptions given X 1. 11:59 Patient left the ED. rb3 Signatures: Miquel Rios MD MD kdr Vania Loo RN RN iw Ethan Menjivar ag5 Barbara Simon, RN RN rb3 Corrections: (The following items were deleted from the chart) 10:28 10:22 BP 125 / 88; Pulse 115bpm; Resp 18bpm; Spontaneous; Pulse Ox 100% RA; 59.87 kg; iw Height 5 ft. 2 in.; BMI: 24.1; iw 10:49 10:30 General: Appears distressed, Behavior is crying, Denies Suicidal/homicidal rb3 ideation. denies wanting to hurt her seven month old son. Reports that she struggles with depression, anxiety, and she thinks she has post depression. rb3
[2020-03-17] MEDS ORDERED: BUPROPION HCL XL 150 MG TAB PO ONE (11:30)
[2020-03-17] MEDS ORDERED: ACETAMINOPHEN 500 MG TAB ONE (11:37)
[2020-03-17 12:49] VITALS: TEMP 98.1; O2SAT 100
[2020-03-17 12:54] VITALS: BP 124/86
== END 2020-03-17 11:59 | disposition home or self-care (01) ==
LOC: ER 10:01
DX: O99.345 Other mental disorders complicating the puerperium (principal); F53.0 Postpartum depression; Z88.8 Allergy status to other drugs, medicaments and biological substances
CPT/HCPCS: 99284

== ENCOUNTER 2020-04-07 18:46 | Emergency (ER) | payer MEDICAID ==
[2020-04-07 19:09] LABS: Urine Blood 2+ (NEG); Urine Glucose NEGATIVE (NEG); Urine Protein 1+ (NEG); Urine Specific Gravity 1.025 (1.005-1.030)
[2020-04-07 19:54] LABS: Barbiturates NEGATIVE (NEGATIVE); Benzodiazepines NEGATIVE (NEGATIVE); Cocaine NEGATIVE (NEGATIVE); METHAMPHETAM NEGATIVE (NEGATIVE); Methadone NEGATIVE (NEGATIVE); Opiates NEGATIVE (NEGATIVE); Phencyclidine NEGATIVE (NEGATIVE); THC Cannibis NEGATIVE (NEGATIVE)
[2020-04-07 19:55] LABS: Urine Bacteria <20 /HPF (<20); Urine Mucus 2+ /HPF (NONE SEEN)
[2020-04-07] MEDS ORDERED: PROMETHAZINE INJ 25 MG/ML AMP ONE ×2 (20:00→21:25)
[2020-04-07] MEDS ORDERED: MORPHINE 4 MG/ML SYR ONE (20:01)
[2020-04-07] MEDS ORDERED: NA CHLORIDE 0.9% 1,000 ML ONE ×2 (20:01→21:25)
--- NOTE | 2020-04-07 20:20 | RAD REPORT ---
EXAM DESCRIPTION: CT - Stone Protocol - 04/07/2020 8:04 pm CLINICAL HISTORY: Abdominal pain. Flank pain COMPARISON: February 2020 TECHNIQUE: Computed axial tomography of the abdomen pelvis was obtained without oral or IV contrast. Lack of IV and oral contrast limits evaluation of solid organs, bowel, and vessels. Coronal reformat renata images were obtained and reviewed. All CT scans are performed using dose optimization technique as appropriate and may include automated exposure control or mA/KV adjustment according to patient size. FINDINGS: Punctate bilateral renal calculi. No hydronephrosis. An ureteral calculus is not noted. A bladder calculus is not present. The liver, spleen, pancreas and adrenals appear grossly normal There is no evidence of diverticulitis. The appendix appears normal. Small umbilical hernia IMPRESSION: Punctate nonobstructing renal calculi
[2020-04-07 20:26] LABS: Basophils % 0.6 % (0-1.3); Hematocrit 36.6 % (36.0-45.0); Lymphocytes % 27.5 % (15.3-44.8); MPV 7.8 fL (7.6-11.3); RBC Red Blood Cell Count 4.39 M/uL (3.86-4.86)
[2020-04-07 20:38] LABS: Albumin 3.8 g/dL (3.4-5.0); Bilirubin Direct 0.1 mg/dL (0-0.2); Bilirubin Total 0.5 mg/dL (0.2-1.0); Potassium 3.7 mmol/L (3.5-5.1); Protein, Total 7.6 g/dL (6.4-8.2)
[2020-04-07] MEDS ORDERED: KETOROLAC 30 MG/ML INJ ONE (21:49)
--- NOTE | 2020-04-07 21:52 | ER ---
Nurse's Notes [facility] Name: Natanael Dyson Age: 25 yrs Sex: Female : 1995 Arrival Date: 04/07/2020 Time: 18:48 Bed 13 Private MD: Diagnosis: Nephrolithiasis;Vomiting Presentation: 04/07 18:59 Chief complaint: Patient states: burning with urination x 1 week and L ear pain x 2 ss days. Coronavirus screen: Client denies travel out of the [place] in the last 14 days. Ebola Screen: Patient denies exposure to infectious person. Patient denies travel to an Ebola-affected area in the 21 days before illness onset. Risk Assessment: Do you want to hurt yourself or someone else? Patient reports no desire to harm self or others. Onset of symptoms was April 01, 2020. 18:59 Method Of Arrival: Ambulatory ss 18:59 Acuity: THIERNO 3 ss 19:00 Initial Sepsis Screen: Does the patient meet any 2 criteria? No. Patient's initial ca1 sepsis screen is negative. Does the patient have a suspected source of infection? No. Patient's initial sepsis screen is negative. 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 - Social history:: Smoking status: Patient denies any tobacco usage or history of. Screenin:00 Abuse screen: Denies threats or abuse. Denies injuries from another. Nutritional ca1 screening: No deficits noted. Tuberculosis screening: No symptoms or risk factors identified. Fall Risk IV access (20 points). Assessment: 19:00 General: Appears in no apparent distress. comfortable, Behavior is calm, cooperative, ca1 appropriate for age. Pain: Complains of pain in left low back Pain does not radiate. Pain currently is 8 out of 10 on a pain scale. Pain began a week Is intermittent. Neuro: Level of Consciousness is awake, alert, obeys commands, Oriented to person, place, time, situation. Cardiovascular: Heart tones S1 S2 present Capillary refill < 3 seconds Patient's skin is warm and dry. Respiratory: Airway is patent Respiratory effort is even, unlabored, Respiratory pattern is regular, symmetrical, Breath sounds are clear bilaterally. GI: Abdomen is flat, non-distended, Bowel sounds present X 4 quads. Abd is soft and non tender X 4 quads. Reports nausea, vomiting. : Reports burning with urination, urgency, urinary frequency. EENT: No signs and/or symptoms were reported regarding the EENT system. Derm: Skin is intact, is healthy with good turgor, Skin is pink, warm \T\ dry. Musculoskeletal: Circulation, motion, and sensation intact. Capillary refill < 3 seconds. 19:53 Reassessment: Patient appears in no apparent distress at this time. Patient and/or ca1 family updated on plan of care and expected duration. Pain level reassessed. Patient is alert, oriented x 3, equal unlabored respirations, skin warm/dry/pink. 21:07 Reassessment: Patient appears in no apparent distress at this time. Patient and/or ca1 family updated on plan of care and expected duration. Pain level reassessed. Patient is alert, oriented x 3, equal unlabored respirations, skin warm/dry/pink. 22:04 Reassessment: Patient appears in no apparent distress at this time. Patient is alert, ca1 oriented x 3, equal unlabored respirations, skin warm/dry/pink. Vital Signs: 18:59 Resp 16; Weight 63.5 kg; Height 5 ft. 2 in. (157.48 cm); Pain 8/10; ss 18:59 BP 122 / 91; Pulse 124; Resp 16; Temp 98.3; Pulse Ox 100% ; rr5 19:53 BP 138 / 94; Pulse 125; Resp 19 S; Pulse Ox 100% on R/A; ca1 21:07 BP 123 / 78; Pulse 100; Resp 19 S; Pulse Ox 100% on R/A; ca1 22:00 BP 118 / 83; Pulse 102; Resp 19 S; Pulse Ox 100% on R/A; ca1 18:59 Body Mass Index 25.61 (63.50 kg, 157.48 cm) ss ED Course: 18:48 Patient arrived in ED. ds1 18:58 Henna Mancia RN is Primary Nurse. ca1 18:59 Canelo Da Silva MD is Attending Physician. [facility] 19:00 Patient has correct armband on for positive identification. Placed in gown. Bed in low ca1 position. Call light in reach. Side rails up X 1. Pulse ox on. NIBP on. Warm blanket given. 19:01 Triage completed. ss 19:01 Arm band placed on right wrist. ss 20:00 Inserted saline lock: 22 gauge in right hand, using aseptic technique. Blood collected. dh4 Missed attempt(s): 20 gauge in right antecubital area. 20:05 CT Stone Protocol In Process Unspecified. EDMS 21:50 Bharati Garcia MD is Referral Physician. [facility] 22:05 No provider procedures requiring assistance completed. IV discontinued, intact, ca1 bleeding controlled, No redness/swelling at site. Pressure dressing applied. Administered Medications: 19:56 Drug: NS 0.9% 1000 ml Route: IV; Rate: 1000 ml; Site: right hand; ca1 21:08 Follow up: Response: No adverse reaction; IV Status: Completed infusion; IV Intake: ca1 1000ml 19:57 Drug: Phenergan 12.5 mg Route: IVP; Site: right hand; ca1 21:08 Follow up: Response: No adverse reaction; Nausea is decreased ca1 19:58 Drug: morphine 4 mg {Note: rass 0.} Route: IVP; Site: left antecubital; ca1 21:08 Follow up: Response: No adverse reaction; Pain is decreased; RASS: Alert and Calm (0) ca1 21:14 Drug: NS 0.9% 1000 ml Route: IV; Rate: 1 bolus; Site: right hand; ca1 22:04 Follow up: Response: No adverse reaction; IV Status: Completed infusion; IV Intake: ca1 800ml 21:17 Drug: Phenergan 12.5 mg Route: IVP; Site: right hand; ca1 22:05 Follow up: Response: No adverse reaction; Nausea is decreased ca1 21:36 Drug: TORadol 30 mg Route: IVP; Site: right hand; ca1 22:04 Follow up: Response: No adverse reaction; Pain is decreased ca1 Intake: 21:08 IV: 1000ml; Total: 1000ml. ca1 22:04 IV: 800ml; Total: 1800ml. ca1 Outcome: 21:51 Discharge ordered by . [facility] 22:05 Discharged to home ambulatory, with family. ca1 22:05 Condition: stable 22:05 Discharge instructions given to patient, Instructed on discharge instructions, follow up and referral plans. medication usage, Demonstrated understanding of instructions, follow-up care, medications, Prescriptions given X 2. 22:05 Patient left the ED. ca1 Signatures: Dispatcher [employer] EDVT Isaura Garcia ds1 Violeta Arthur RN RN ss Stone Shore RN RN rr5 Henna Mancia RN RN ca1 Yash Lux 4 Canelo Da Silva MD MD 7 Corrections: (The following items were deleted from the chart) 19:58 19:53 Pulse 125bpm; Resp 19bpm; Spontaneous; Pulse Ox 100% RA; ca1 ca1
--- NOTE | 2020-04-07 21:52 | EDPHYS ---
Physician Documentation [facility] Name: Natanael Dyson Age: 25 yrs Sex: Female : 1995 Arrival Date: 04/07/2020 Time: 18:48 Bed 13 Private MD: ED Physician Canelo Da Silva HPI: 04/07 20:04 This 25 yrs old Female presents to ER via Ambulatory with complaints of Low mh7 Back Pain, Nausea. 20:04 The patient complains of pain in the left flank and right flank. The pain does not mh7 radiate. 20:05 Onset: The symptoms/episode began/occurred 1 week(s) ago. Modifying factors: The mh7 symptoms are alleviated by nothing. the symptoms are aggravated by nothing. Associated signs and symptoms: Pertinent positives: nausea, Left Ear pain for 2 days, Pertinent negatives: diarrhea, dizziness, dysuria, fever, urinary frequency, headache, hematuria, nausea, pain radiating to the lower extremities, vomiting. Associated signs and symptoms: Pertinent positives: dysuria, Pertinent negatives:. Severity of pain: At its worst the pain was moderate 3 day(s) ago, in the emergency department the pain is unchanged. The patient has experienced similar episodes in the past, several times. 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 - Social history:: Smoking status: Patient denies any tobacco usage or history of. ROS: 20:05 Constitutional: Negative for fever, chills, and weight loss, Eyes: Negative for injury, mh7 pain, redness, and discharge. 20:05 Neck: Negative for injury, pain, and swelling, Cardiovascular: Negative for chest pain, palpitations, and edema, Respiratory: Negative for shortness of breath, cough, wheezing, and pleuritic chest pain, Abdomen/GI: Negative for abdominal pain, nausea, vomiting, diarrhea, and constipation, MS/Extremity: Negative for injury and deformity, Skin: Negative for injury, rash, and discoloration, Neuro: Negative for headache, weakness, numbness, tingling, and seizure, Psych: Negative for depression, anxiety, suicide ideation, homicidal ideation, and hallucinations, Allergy/Immunology: Negative for hives, rash, and allergies, Endocrine: Negative for neck swelling, polydipsia, polyuria, polyphagia, and marked weight changes, Hematologic/Lymphatic: Negative for swollen nodes, abnormal bleeding, and unusual bruising. 20:05 ENT: Positive for ear pain. Exam: 21:10 Head/Face: Normocephalic, atraumatic. Eyes: Pupils equal round and reactive to light, mh7 extra-ocular motions intact. Lids and lashes normal. Conjunctiva and sclera are non-icteric and not injected. Cornea within normal limits. Periorbital areas with no swelling, redness, or edema. Neck: Trachea midline, no thyromegaly or masses palpated, and no cervical lymphadenopathy. Supple, full range of motion without nuchal rigidity, or vertebral point tenderness. No Meningismus. Chest/axilla: Normal chest wall appearance and motion. Nontender with no deformity. No lesions are appreciated. Cardiovascular: Regular rate and rhythm with a normal S1 and S2. No gallops, murmurs, or rubs. Normal PMI, no JVD. No pulse deficits. Respiratory: Lungs have equal breath sounds bilaterally, clear to auscultation and percussion. No rales, rhonchi or wheezes noted. No increased work of breathing, no retractions or nasal flaring. Abdomen/GI: Soft, non-tender, with normal bowel sounds. No distension or tympany. No guarding or rebound. No evidence of tenderness throughout. 21:10 Skin: Warm, dry with normal turgor. Normal color with no rashes, no lesions, and no evidence of cellulitis. MS/ Extremity: Pulses equal, no cyanosis. Neurovascular intact. Full, normal range of motion. Neuro: Awake and alert, GCS 15, oriented to person, place, time, and situation. Cranial nerves II-XII grossly intact. Motor strength 5/5 in all extremities. Sensory grossly intact. Cerebellar exam normal. Normal gait. Psych: Awake, alert, with orientation to person, place and time. Behavior, mood, and affect are within normal limits. 21:10 Constitutional: The patient appears in no acute distress, alert, awake, anxious. 21:10 Back: ROM is normal, normal spinal alignment noted, CVA tenderness, that is mild, is noted bilaterally. Vital Signs: 18:59 Resp 16; Weight 63.5 kg; Height 5 ft. 2 in. (157.48 cm); Pain 8/10; ss 18:59 BP 122 / 91; Pulse 124; Resp 16; Temp 98.3; Pulse Ox 100% ; rr5 19:53 BP 138 / 94; Pulse 125; Resp 19 S; Pulse Ox 100% on R/A; ca1 21:07 BP 123 / 78; Pulse 100; Resp 19 S; Pulse Ox 100% on R/A; ca1 22:00 BP 118 / 83; Pulse 102; Resp 19 S; Pulse Ox 100% on R/A; ca1 18:59 Body Mass Index 25.61 (63.50 kg, 157.48 cm) ss MDM: 21:49 Differential diagnosis: nephrolithiasis, pyelonephritis, UTI. Data reviewed: [facility] signs, nurses notes, old medical records, lab test result(s), CBC, electrolytes, urinalysis, UPT: negative radiologic studies, CT scan. Data interpreted: Pulse oximetry: on room air is 100 %. Interpretation: normal. Counseling: I had a detailed discussion with the patient and/or guardian regarding: the historical points, exam findings, and any diagnostic results supporting the discharge/admit diagnosis, lab results, radiology results, the need for outpatient follow up. Response to treatment: the patient's symptoms have markedly improved after treatment. 21:51 Patient medically screened. [facility] 04/07 19:06 Order name: Urine Microscopic Only; Complete Time: 20:52 rr5 04/07 19:07 Order name: Urine Dipstick--Ancillary (enter results); Complete Time: 19:31 mw2 04/07 19:07 Order name: Urine --Ancillary (enter results); Complete Time: 19:31 [facility] 04/07 19:33 Order name: Basic Metabolic Panel; Complete Time: 20:52 [facility] 04/07 19:33 Order name: CBC with Diff; Complete Time: 20:52 7 04/07 19:33 Order name: Hepatic Function; Complete Time: 20:52 [facility] 04/07 19:33 Order name: Lipase; Complete Time: 20:52 [facility] 04/07 19:33 Order name: CT Stone Protocol; Complete Time: 20:52 mh7 04/07 19:33 Order name: UDS; Complete Time: 20:52 mh7 04/07 19:06 Order name: Urine Dipstick-Ancillary (obtain specimen); Complete Time: 19:11 rr5 04/07 19:06 Order name: Urine Test (obtain specimen); Complete Time: 19:11 rr5 04/07 19:33 Order name: IV Saline Lock; Complete Time: 19:58 mh7 04/07 19:33 Order name: Labs collected and sent; Complete Time: 19:58 mh7 Administered Medications: 19:56 Drug: NS 0.9% 1000 ml Route: IV; Rate: 1000 ml; Site: right hand; ca1 21:08 Follow up: Response: No adverse reaction; IV Status: Completed infusion; IV Intake: ca1 1000ml 19:57 Drug: Phenergan 12.5 mg Route: IVP; Site: right hand; ca1 21:08 Follow up: Response: No adverse reaction; Nausea is decreased ca1 19:58 Drug: morphine 4 mg {Note: rass 0.} Route: IVP; Site: left antecubital; ca1 21:08 Follow up: Response: No adverse reaction; Pain is decreased; RASS: Alert and Calm (0) ca1 21:14 Drug: NS 0.9% 1000 ml Route: IV; Rate: 1 bolus; Site: right hand; ca1 22:04 Follow up: Response: No adverse reaction; IV Status: Completed infusion; IV Intake: ca1 800ml 21:17 Drug: Phenergan 12.5 mg Route: IVP; Site: right hand; ca1 22:05 Follow up: Response: No adverse reaction; Nausea is decreased ca1 21:36 Drug: TORadol 30 mg Route: IVP; Site: right hand; ca1 22:04 Follow up: Response: No adverse reaction; Pain is decreased ca1 Disposition: 04/07/20 21:51 Discharged to Home. Impression: Nephrolithiasis, Vomiting. - Condition is Stable. - Discharge Instructions: Kidney Stones, [id number]. - Prescriptions for ketorolac 10 mg Oral tablet - take 1 tablet by ORAL route every 8 hours As needed not to exceed 40 mg in 24hrs; 12 tablet. promethazine 25 mg Oral Tablet - take 1 tablet by ORAL route every 8 hours As needed; 6 tablet. - Medication Reconciliation Form, Thank You Letter, Antibiotic Education, Prescription Opioid Use form. - Follow up: Private Physician; When: 1 - 2 days; Reason: Worsening of condition, Recheck today's complaints, Continuance of care, Re-evaluation by your physician. Follow up: Bharati Garcia MD; When: 1 - 2 days; Reason: Worsening of condition, Further diagnostic work-up, Recheck today's complaints. - Problem is an acute exacerbation. - Symptoms have improved. Signatures: Dispatcher [employer] EDMS Violeta Arthur RN RN ss Stone Shore RN RN rr5 Henna Mancia RN RN ca1 Canelo Da Silva MD MD 7 Corrections: (The following items were deleted from the chart) 21:51 21:51 04/07/2020 21:51 Discharged to Home. Impression: Nephrolithiasis. Condition is mh7 Stable. Forms are Medication Reconciliation Form, Thank You Letter, Antibiotic Education, Prescription Opioid Use. Follow up: Private Physician; When: 1 - 2 days; Reason: Worsening of condition, Recheck today's complaints, Continuance of care, Re-evaluation by your physician. Follow up: Bharati Garcia; When: 1 - 2 days; Reason: Worsening of condition, Further diagnostic work-up, Recheck today's complaints. Problem is an acute exacerbation. Symptoms have improved. [facility] 22:05 21:51 04/07/2020 21:51 Discharged to Home. Impression: Nephrolithiasis; Vomiting. ca1 Condition is Stable. Forms are Medication Reconciliation Form, Thank You Letter, Antibiotic Education, Prescription Opioid Use. Follow up: Private Physician; When: 1 - 2 days; Reason: Worsening of condition, Recheck today's complaints, Continuance of care, Re-evaluation by your physician. Follow up: Bharati Garcia; When: 1 - 2 days; Reason: Worsening of condition, Further diagnostic work-up, Recheck today's complaints. Problem is an acute exacerbation. Symptoms have improved. 7
[2020-04-08 00:42] VITALS: TEMP 98.3; O2SAT 100
[2020-04-08 00:52] VITALS: BP 118/83
== END 2020-04-07 22:05 | disposition home or self-care (01) ==
LOC: ER 18:46
DX: N20.0 Calculus of kidney (principal); R11.10 Vomiting, unspecified; Z87.442 Personal history of urinary calculi; Z88.8 Allergy status to other drugs, medicaments and biological substances
CPT/HCPCS: 85025; 80048; 36415; 81025; 80076; 80307 ×8; 83690; 76377; 74176; 99284; J2550 ×2; J7030 ×2; 81003; 81015

== ENCOUNTER 2020-04-18 10:02 | Emergency (ER) | payer MEDICAID ==
[2020-04-18] MEDS ORDERED: PROMETHAZINE INJ 25 MG/ML AMP ONE ×2 (10:43→11:32)
[2020-04-18] MEDS ORDERED: MORPHINE 4 MG/ML SYR ONE (10:44)
[2020-04-18] MEDS ORDERED: NA CHLORIDE 0.9% 1,000 ML ONE (10:44)
[2020-04-18 10:57] LABS: Absolute Lymphocytes (CBC) 2.4 K/uL (0.7-4.9); Basophils % 0.8 % (0-1.3); Hematocrit 40.1 % (36.0-45.0); Lymphocytes % 29.5 % (15.3-44.8); MPV 8.3 fL (7.6-11.3); RBC Red Blood Cell Count 4.73 M/uL (3.86-4.86)
--- NOTE | 2020-04-18 11:03 | RAD REPORT ---
EXAM DESCRIPTION: CT - Stone Protocol - 04/18/2020 10:50 am CLINICAL HISTORY: Flank pain. ABD PAIN COMPARISON: Stone Protocol dated 04/07/2020 TECHNIQUE: Axial images were obtained without oral or IV contrast. Lack of contrast limits solid org an and vascular assessment. The [id number] spans the entirety of the system partially obscuring uppermost abdomen and lung bases. Coronal reformatted images were obtained and reviewed. All CT scans are performed using dose optimization technique as appropriate and may include automated exposure control or mA/KV adjustment according to patient size. FINDINGS: The lower lung barney are clear. Imaged portions of the liver and spleen show no suspicious findings on non-contrast imaging. The panc reas and adrenal glands are normal. No pathologic lymphadenopathy in the abdomen or pelvis. Punctate caliceal stones are seen in both kidneys compatible with bilateral nephrolithiasis. No hydro nephrosis. No bowel obstruction, free air, free fluid or abscess. Normal appendix noted. No significant bony abnormality. IMPRESSION: Punctate bilateral nephrolithiasis without hydronephrosis.
[2020-04-18 11:10] LABS: Bilirubin Direct 0.1 mg/dL (0-0.2); Bilirubin Total 0.5 mg/dL (0.2-1.0); Potassium 4.1 mmol/L (3.5-5.1); Protein, Total 8.4 g/dL (6.4-8.2)
[2020-04-18 11:19] LABS: White Blood Cell Scan OK (OK)
[2020-04-18 11:20] LABS: Blood Morphology Comment NOT SEEN (NOT SEEN); Platelet Estimate ADEQ; Platelets, Giant FEW
--- OUTSIDE RECORDS SUMMARY | 2020-04-18 11:39 | XMS REPORT | Continuity of Care Document ---
:1995 Author Organization [facility] t Address [address] [place] [address] [address] [place] [address] Care Team Providers Name Role Phone Vladimir FELIX Attending Clinician Problems This patient has no known problems. Allergies, Adverse Reactions, Alerts This patient has no known allergies or adverse reactions. Medications This patient has no known medications. Procedures This patient has no known procedures. Encounters Start End Encounter Admission Attending Care Care Encounter Source Date/Time Date/Time Type Type Clinicians Facility Department ID 2020-04-18 2020-04-18 Office VICK Gilbert [id number] 08:38:48 09:23:54 Visit Eder Richards [id number] Rj [id number] Kannan [id number] [facility] 204 [facility] Results This patient has no known results.
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
--- OUTSIDE RECORDS SUMMARY | 2020-04-18 11:46 | XMS REPORT | Summary of Care ---
:1995 Author Organization [facility] Address [address] [place] [address] Care Team Providers Name Role Phone Jessica Baker Insurance Hmo Jm Quiñonez MD Primary Care Provider Reason for Visit Reason Onset Date Comments Refill Request 03/11/2020 Encounter Details Date Type Department Care Team Description 03/11/2020 Refill [facility] Lopez Hitchcock MD Refill Request Nephrology-[address] [place] [address] 6695 [facility], Entrance B [place] [phone] Allergies Active Allergy Reactions Severity Noted Date Comments Metoclopramide Hcl Anxiety 07/12/2019 Patient s ays she gets figity, angry and mean documented as of this encounter (statuses as of 03/18/2020) Medications Medication Sig Dispensed Refills Start Date [...] by mouth at Insomnia, unspecified bedtime. type traMADoL 100 mg [...] as of this encounter (statuses as of 03/18/2020) Active Problems Problem Noted Date Anxiety disorder, unspecified type 01/05/2020 Insomnia, unspecified type 01/05/2020 Other depression 08/13/2019 Cervical Papanicolaou smear negative within last 12 mo [facility] 06/19/2019 Overview: 12/2018 NIL pap , see scanned records documented as of this encounter (statuses as of 03/18/2020) Resolved Problems Problem Noted Date Resolved Date [...] as of this encounter (statuses as of 03/18/2020) Immunizations Name Administration Dates Next Due Influenza [...] this encounter Miscellaneous Notes Telephone Encounter - Candelaria Perez RN - 03/14/2020 10:57 AM CST Received refill request for: Requested Prescriptions Pending Prescriptions Disp Refills traMADoL 100 mg Tab 21 tablet 0 Sig: Take 100 mg by mouth every 6 (six) hours as needed for Pain (scale 7-10). Last filled: 2020 Follow up scheduled for : none Last office visit: 02/25/2020 Plesae review for refill. Thankyou BONDING AGENT documented in this encounter Plan of Treatment Date Type Specialty Care Team Description 08/11/2020 Office Visit Obstetrics & Gynecology Young Quiñonez MD [address] [place] [address] [address]. [address] [place], [place] [address] [phone] Health Maintenance Due Date Last Done Comments [...] / Subscriber ID Effective Phone Address [facility] Group Dates SAMMY CHRISTIANSON [id number] 2019-Pres [address] Medic aid HEALTHCARE - HE[place]CARE [place] [id number] MANAGED MEDICAID [place], [place] documented as of this encounter
--- OUTSIDE RECORDS SUMMARY | 2020-04-18 11:47 | XMS REPORT | Summary of Care ---
:1995 Author Organization [facility] Address [address] [place] [address] Care Team Providers Name Role Phone Jessica Baker Insurance Hmo Jm Quiñonez MD Primary Care Provider Reason for Referral ([place]) Status Reason Specialty Diagnoses / Referred By Referred To Procedures Contact Contact Open Wait Time for Family Medicine Diagnoses Depression, unspecified depression type depression Insomnia, unspecified type Anxiety disorder, unspecified type Vanaphsam, Patient Procedures CONSULT/REFERRAL FAMILY THERAPY/COUNSELING KAYKAY Briseno [facility] [address] [facility] [address] [place] [address] ([place]) Status Reason Specialty Diagnoses / Referred By Referred To Procedures Contact Contact New Request Psychiatry Diagnoses Depression, unspecified depression type depression Suzanna Slaughter, Psych Staff-Pcp Procedures CONSULT/REFERRAL PSYCHIATRY ADULT PA-C [facility] [address] [facility], [address] [facility] [place] [phone] Phone: Fax: Reason for Visit Reason Comments Depression Encounter Details Date Type Department Care Team Description 03/17/2020 Telemedicine Visit [facility] Suzanna Slaughter , depression (Primary Dx); Healthcare- PA-C Depression, unspecified depression type; [place] [address] [facility] Insomnia, unspecified type; [address] Anxiety disorder, unspecified type Drive, [address] [place] [phone] Allergies Active Allergy Reactions Severity Noted Date Comments Metoclopramide Hcl Anxiety 07/12/2019 Patient s ays she gets figity, angry and mean documented as of this encounter (statuses as of 03/28/2020) Medications Medication Sig Dispensed Refills [place] [...] as of this encounter (statuses as of 03/28/2020) Active Problems Problem Noted Date Anxiety disorder, unspecified type 01/05/2020 Insomnia, unspecified type 01/05/2020 Other depression 08/13/2019 Cervical Papanicolaou smear negative within last 12 mo [facility] 06/19/2019 Overview: 12/2018 NIL pap , see scanned records documented as of this encounter (statuses as of 03/28/2020) Resolved Problems Problem Noted Date Resolved Date [...] as of this encounter (statuses as of 03/28/2020) Immunizations Name Administration Dates Next Due Influenza [...] do yourdaily tasks To learn more National [place] of Mental Health, , www.nimh.nih.gov National [place] on Mental Illness, , www.lakeshia.org Mental Health Sarita, , www.nmha.org National Suicide Hotline, 800-SUICIDE (451-841-1213) National Suicide Prevention Lifeline, , www.suicidepreventionlifeline.org Radhika last reviewed this educational content on 09/11/201919995374-8399 The [employer]. All rights reserved. This information is not [...] eased by rest and mild pain reliever Akippa last reviewed this educational content on 08/12/201919990333-1788 The [employer]. All rights reserved. This information is not [...] your body to your neck and face. Akippa last reviewed this educational content on 01/11/201919995608-6087 The [employer], [employer]. All rights reserved. This information is not [...] more National Suicide Prevention Lifeline (crisis hotline) 370-633-VGPK (688-721-0377) National Hubbard of Mental Rnjbhb285-969-0357zhk.nimh.nih.gov National [place] on Mental Mvcalzr271-260-0202qkj.lakeshia.org Mental Health Fhnxycm842-584-8138dzy.[facility].org National Suicide Uczevju277-ICYQNTO (836-568-6380) Call 91 Never leave the person alone. A person who is actively suicidal needs psychiatric care right away. They will need constant supervision. Never leave the person out of sight. Call 911 or the national 24-hour suicide crisis hotline at 265-907-VQPG (924-903-1048). You can also take the person to the closest emergency room. Radhika ramos reviewed this educational content on 09/11/201919999088-4739 The [employer]. All rights reserved. This information is not intended as a substitute for professional medical care. Always follow your healthcare professional's instructions. RY RIGGER documented in this encounter Progress Notes Suzanna [...] of Service: 03/17/2020 Chief Complaint: DEPRESSION/ANXIETY/INSOMNIA HPI: Natnaael Dyson is a 25 year old female [...] also sick. 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 I spent 25 minute(s) conducting this Telehealth encounter with the patient over thetelephone due to patient unable to botain video call option. Education resources and self-managementtools were provided is the AVS which is accessible through [employer]. Patient/guardian/family verbalized understanding and agrees to the plan of care. Barriers to care: None. Ability to manage care:Good. If applicable, the [facility] database was accessed to review any controlled substance prescription claims data. If the patient is taking prescribed medications, the [employer] prescription claims data in [employer] was reviewed to assess patient compliance with the medication treatment plan. COVID-19 precautions given including frequent handwashing, social distancing, cleaning and disinfecting, indications for testing, etc. After visit summary (AVS ) documentation will be available through [employer] for this encounter. Suzanna Slaughter PA-C 03/17/2020 9:23 AM RY RIGGER documented in this encounter Miscellaneous Notes Addendum Note - Suzanna Slaughter PA-C - 03/17/2020 4:15 PM GANTRY RIGGER Addended by: SUZANNA SLAUGHTER on: 03/28/2020 12:40 PM Modules accepted: Orders RY RIGGER documented in this encounter Plan of Treatment Date Type Specialty Care Team Description 08/11/2020 Office Visit Obstetrics & Gynecology Young Quiñonez MD [address] [place] [address] [place] [address] [phone] Health Maintenance Due Date Last Done Comments [...] [facility] Group Dates SAMMY CHRISTIANSON [id number] 2019-Pres P O BOX Medic aid HEALTHCARE - HEALTHCARE [place] [id number] MANAGED MEDICAID [place], [place] (Home) [place] [address] documented as of this encounter
--- OUTSIDE RECORDS SUMMARY | 2020-04-18 11:48 | XMS REPORT | Summary of Care ---
:1995 Author Organization [facility] Address [address] [place] [address] Care Team Providers Name Role Phone Jessica Baker Insurance Hmo Kassandra Dennis MD Primary Care Provider Encounter Details Date Type Department Care Team Description 04/15/2020 Patient Secure [facility] Lopez Hitchcock M D Nephrology- [address], [address] [address] [phone] [place] [address] Allergies Active Allergy Reactions Severity Noted Date Comments Latex Rash 04/13/2020 Metoclopramide Hcl Anxiety 07/12/2019 Patient s ays she gets figity, angry and mean documented as of this encounter (statuses as of 04/15/2020) Medications Medication Sig Dispensed Refills Start Date End Date Status ALBUTEROL 90 INHALE 2 PUFFS BY 7 Each 3 05/26/2019 Active mcg/actuation MOUTH EVERY 6 inhalerIndications: HOURS NEEDED Asthma affecting FOR WHEEZING FOR in second SHORTNESS OF trimester BREATH potassium citrate 10 Take 1 tablet by 180 tablet 1 01/14/2020 Active mEq (1,080 mg) SR mouth 3 (three) tabletIndications: times daily with Pain meals. FLUoxetine 20 mg Take 1 capsule by 30 capsule 3 03/17/2020 Active capsuleIndications: mouth daily. Depression, unspecified depression type, depression metoprolol succinate Take 0.5 tablets 15 tablet 0 04/14/2020 0 05/14/2020 Active XL 25 mg 24 hr by mouth daily tabletIndications: for 30 days. Tachycardia aspirin (ADULT LOW Take 1 tablet by 7 tablet 0 04/15/202003/2020 Active DOSE ASPIRIN) 81 mg mouth daily for 7 EC days. Take with tabletIndications: food. Phlebitis, superficial cephALEXin 250 mg Take 1 capsule by 21 capsule 0 04/15/2020 Active capsuleIndications: mouth every 8 Phlebitis, (eight) hours for superficial 7 days. documented as of this encounter (statuses as of 04/15/2020) Active Problems Problem Noted Date Sinus tachycardia 04/13/2020 Abdominal pain 04/13/2020 Tachycardia 04/12/2020 Anxiety disorder, unspecified type 01/05/2020 Insomnia, unspecified type 01/05/2020 Other depression 08/13/2019 Cervical Papanicolaou smear negative within last 12 mo [facility] 06/19/2019 Overview: 12/2018 NIL pap , see scanned records documented as of this encounter (statuses as of 04/15/2020) Resolved Problems Problem Noted Date Resolved Date [...] as of this encounter (statuses as of 04/15/2020) Immunizations Name Administration Dates Next Due Influenza [...] been in contact with No / Unsure 04/15/2020 9:44 AM PET GROOMER someone who was confirmed or 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 documented as of this encounter Last Filed Vital Signs Not on filedocumented in this encounter Plan of Treatment Date Type Specialty Care Team Description 04/18/2020 Office Visit Urology Eder Gilbert MD [address] [place] [address]. [place] [address] 04/18/2020 Telemedicine Visit Nephrology Lopez Hitchcock M D [address] [place] [phone] 06/02/2020 Office Visit Cardiology Rad Potts MD [address] [place] [address] 08/11/2020 Office Visit Obstetrics & Quiñonez, Munir Johnson Gynecology [address] [facility] [address] [place] [phone] Health Maintenance Due Date Last Done Comments HPV VACCINES (1 - 2-dose 2006 series) PAP SMEAR 02/19/2016 INFLUENZA VACCINE (#1) 2020 02/06/2019 Postponed from 01/12/2020 (Vacc ine not available) Depression Screening 09/01/2020 09/02/2019, 09/02/2019 DTaP,Tdap,and Td Vaccines (2 05/21/2029 05/21/2019 - Td) PNEUMOCOCCAL 0-64 YEARS Discontinued COMBINED SERIES documented as of this encounter Results Not on filedocumented in this encounter Insurance Payer Benefit Plan / Subscriber ID Effective Phone Address T ype Group Dates SAMMY CHRISTIANSON [id number] 2019-Pres Alisson RYAN Medic aid HEALTHCARE - HEALTHCARE ent [id number] MANAGED MEDICAID [place], [place] documented as of this encounter
--- OUTSIDE RECORDS SUMMARY | 2020-04-18 11:48 | XMS REPORT | Summary of Care ---
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 if clinically indicated. Equal or Higher than 0.121 ng/mL---Abnormal. Myocardial Injury or Necrosis Likely Biotin has been reported to cause a negative bias, interpret results relative to patient's use of biotin. Performing Organization Address [facility] Phone Number [facility] CLIA: [id number] [place] [address] Magnesium Serum (04/13/2020 3:39 AM RESOLUTION SPECIALIST) Pathologist Sig nature MAGNESIUM 1.7 1.7 - 2.4 mg/dL [facility] Specimen Blood - HAND, LEFT Performing Organization Address City/[facility] Phone Number [facility] CLIA: [id number] [place] [address] Basic Metabolic Panel (NA, K, CL, CO2, GLUCOSE, BUN, CREATININE, CA) (04/13/2020 3:39 AM RESOLUTION SPECIALIST) Pathologist Sig nature NA 137 135 - 145 [facility] mmol/L [facility] LABORATORY K 3.2 (L) 3.5 - 5.0 [facility] mmol/L [facility] CL 107 98 - 108 mmol/L [facility] CO2 TOTAL 21 (L) 23 - 31 mmol/L [facility] AGAP 9 2 - 16 [facility] BUN 5 (L) 7 - 23 mg/dL [facility] GLUCOSE 90 70 - 110 mg/dL [facility] CREATININE 0.74 0.50 - 1.04 [facility] mg/dL [facility] LABORATORY CALCIUM 8.0 (L) 8.6 - 10.6 [facility] mg/dL [facility] LABORATORY eGFR Calculation 95.6 mL/min/1.73m2 [facility] ([facility] LABORATORY [place]) eGFR Calculation 115.9 mL/min/1.73m2 [facility] () [facility] LABORATORY Specimen Blood - HAND, LEFT Narrative Performed At Association of Glomerular Filtration Rate (GFR) [facility] LABORATORY and Staging of Kidney Disease* [...] tests). Performing Organization Address City/State/Zipcode Phone Number [facility] CLIA: [id number] [place] [address] CBC with Differential (04/13/2020 3:39 AM RESOLUTION SPECIALIST) [facility] WBC 8.78 4.30 - 11.10 [facility] 10*3/L [facility] LABORATORY RBC 3.94 3.93 - 5.25 [facility] 10*6/L [facility] HGB 11.0 (L) 11.6 - 15.0 [facility] g/dL [facility] HCT 35.0 (L) 35.7 - 45.2 % [facility] MCV 88.8 80.6 - 95.5 fL [facility] MCH 27.9 25.9 - 32.8 pg [facility] LAB[facility] MCHC 31.4 (L) 31.6 - 35.1 [facility] g/dL [facility] LAB[facility] RDW-SD 47.5 39.0 - 49.9 fL [facility] LAB[facility] RDW-CV 14.5 12.0 - 15.5 % [facility] LABORATORY PLT 395 (H) 166 - 358 [facility] 10*3/L [facility] LAB[facility]ATORY MPV 9.6 9.5 - 12.9 fL [facility] LAB[facility] NRBC/100 WBC 0.0 0.0 - 10.0 /100 [facility] WBCs [facility] LAB[facility]AT[facility] NRBC x10^3 <0.01 10*3/L [facility] LAB[facility] GRAN MAT (NEUT) % 59.5 % [facility] LAB[facility] IMM GRAN % 0.80 % [facility] LAB[facility] LYMPH % 29.6 % [facility] MONO % 5.6 % [facility] EOS % 3.9 % [facility] LAB[facility]ATORY BASO % 0.6 % [facility] LABORATORY GRAN MAT x10^3(ANC) 5.23 1.88 - 7.09 [facility] 10*3/uL [facility]OSPITAL LAB[facility]ATORY IMM GRAN x10^3 0.07 (H) 0.00 - 0.06 [facility] 10*3/uL [facility] LAB[facility]ORY LYMPH x10^3 2.60 1.32 - 3.29 [facility] 10*3/uL [facility] LAB[facility] MONO x10^3 0.49 0.33 - 0.92 [facility] 10*3/uL [facility]ITAL LAB[facility] EOS x10^3 0.34 0.03 - 0.39 [facility] 10*3/uL [facility] BASO x10^3 0.05 0.01 - 0.07 [facility] 10*3/uL [facility] LAB[facility]ORY Specimen Blood - HAND, LEFT Performing Organization Address City/State/Zipcode Phone Number [facility] CLIA: [id number] [place] [address] COVID-19 (ID NOW RAPID TESTING) (04/12/2020 6:58 PM RESOLUTION SPECIALIST) [facility] SARS-CoV-2 Rapid ID Not Detected Not Detected [facility] LABORATORY Specimen Swab - NASOPHARYNGEAL SWAB Narrative Performed At [facility] NOW COVID-19 Assay is an isothermal nucleic [facility] LABOR[facility]ORY acid amplification test intended for the qualitative detection of nucleic acid from SARS-CoV-2 viral RNA in nasopharyngeal (METER AND SERVICE LINE INSPECTOR) specimens. It is used under Emergency Use [...] testing if clinically indicated. Performing Organization Address City/State/Zipcode Phone Number [facility] CLIA: [id number] [place] [address] D-DIMER (04/12/2020 5:39 PM RESOLUTION SPECIALIST) [facility] D-DIMER 0.31 <0.41 g/mL (FEU) [facility] LABORATORY Specimen Blood - VENOUS Narrative Performed At This test may be used in conjunction with a [facility]ATORY clinical pretest probability (PTP) assessment model to exclude venous thromboembolism (VTE) in patients suspected of deep venous thrombosis (DVT) and pulmonary embolism (PE) A D-Dimer value less than 0.50 g/ml (FEU) has a negative predicative value of 96 to 100% (95% CI)and 97 to 100% (95% CI) as an aid in the diagnosis of deep vein thrombosis (DVT) and pulmonary embolism when there is low or moderate pretest probability of PE or DVT. D-Dimer values are expressed in initial fibrinogen equivalent units (FEU)" The assay results should be used with other information, including the clinical context, in forming a diagnosis. Performing Organization Address [facility]/Zipcode Phone Number [facility] CLIA: [id number] [place] [address] THYROID STIMULATING HORMONE (04/12/2020 5:39 PM RESOLUTION SPECIALIST) Pathologist Sig nature TSH 2.14Comment: Biotin 0.45 - 4.70 [facility] has been reported [facility] to cause a negative bias, interpret results relative to patient's use of biotin. Specimen Blood - VENOUS Performing Organization Address [facility]/Zipcode Phone Number [facility] CLIA: [id number] [place] [address] [place] [address] XR KUB (04/12/2020 5:12 PM RESOLUTION SPECIALIST) Specimen Impressions Performed At PACS/VR/DOSE Nonobstructive bowel gas pattern. Preliminary Report Dictated by Resident: Adrian Allred MD., have reviewe d this study and agree with the above report. Narrative Performed At XR KUB PACS/VR/DOSE HISTORY: abd pain COMPARISON: None TECHNIQUE: Frontal radiographs of the ab domen were performed. FINDINGS: The bowel gas pattern is nonobstructive. No abnormal calcifications. No acute osseous abnormalities. Chronic resorptive changes of the pubic symphysis are noted. Procedure Note [facility], Radiant Results Inft User - 2019 5:59 PM RESOLUTION SPECIALIST XR KUB HISTORY: abd pain COMPARISON: None TECHNIQUE: Frontal radiographs of the ab domen were performed. FINDINGS: The bowel gas pattern is nonobstructive. No abnormal calcifications. No acute osseous abnormalities. Chronic resorptive changes of the pubic symphysis are noted. IMPRESSION Nonobstructive bowel gas pattern. Preliminary Report Dictated by Resident: Adrian Allred MD., have reviewed this study and agree with the above report. Performing Organization Address [facility]/Zipcode Phone Number PACS/VR/DOSE XR CHEST 1 VW (04/12/2020 5:12 PM RESOLUTION SPECIALIST) Specimen Impressions Performed At PACS/VR/DOSE No acute cardiopulmonary abnormality. Preliminary Report Dictated by Resident: Willis Chen I, Peeyush Moses, MD., have reviewe d this study and agree with the above report. Narrative Performed At XR CHEST 1 VW PACS/VR/DOSE HISTORY: tachycardia COMPARISON: 03/01/2020 TECHNIQUE: AP radiograph of the chest ch est was performed. FINDINGS: The lungs are clear. No focal consolidat ion, pneumothorax or pleural effusion is seen. The cardiomediastinal silhouette is norm al. No acute osseous abnormality. Procedure Note [facility], Radiant Results Inft User - 2019 5:54 PM RESOLUTION SPECIALIST XR CHEST 1 VW HISTORY: tachycardia COMPARISON: 03/01/2020 TECHNIQUE: AP radiograph of the chest ch est was performed. FINDINGS: The lungs are clear. No focal consolidat ion, pneumothorax or pleural effusion is seen. The cardiomediastinal silhouette is norm al. No acute osseous abnormality. IMPRESSION No acute cardiopulmonary abnormality. Preliminary Report Dictated by Resident: Adrian Allred MD., have reviewed this study and agree with the above report. Performing Organization Address City/State/Zipcode Phone Number PACS/VR/DOSE ADC / LCC - DRUG SCREEN TRIAGE (04/12/2020 4:57 PM RESOLUTION SPECIALIST) BENZO U Negative Negative [facility] LAB[facility]AT[facility] KYLE U Negative Negative [facility] AMPHET Negative Negative [facility] LAB[facility] THC Negative Negative [facility] METHADONE Negative Negative H[facility] Meth U Negative Negative [facility] LAB[facility]AT[facility] OPIATES Presumptive Negative [facility] Positive (A) HOSPITAL LAB[facility]ORY Cocaine Metabolite Negative Negative [facility] PROPOXY Negative Negative [facility] Tric U Negative Negative [facility] PCP Negative Negative [facility] OXYCOD Negative Negative [facility] LABOR[facility]ORY Specimen Urine - URINE, CLEAN CATCH Narrative Performed At Urine Drug [place] [facility] LAB[facility]ATORY Benzodiazepines: 150 ng/mL Barbiturates: 200 ng/mL [...] employment testing, legal testing). Performing Organization Address [facility] Phone Number [facility] CLIA: [id number] [place] [address] [place] [address] URINALYSIS (04/12/2020 3:36 PM RESOLUTION SPECIALIST) Pathologist Sig nature APPEARANCE Clear Clear [facility] LAB[facility]AT[facility] COLOR Straw (A) Yellow [facility] LAB[facility] PH 7.0 4.8 - 8.0 [facility] LAB[facility] SP GRAVITY 1.006 1.003 - 1.030 [facility] LAB[facility]AT[facility] GLU U QUAL Normal Normal [facility] LAB[facility] BLOOD 1+ (A) Negative [facility] LAB[facility] KETONES Negative Negative [facility] LAB[facility] PROTEIN Negative Negative [facility] UROBILIN Normal Normal [facility] LAB[facility] BILIRUBIN Negative Negative [facility] NITRITE Negative Negative [facility] LAB[facility] LEUK ANJELICA Negative Negative [facility] RBC/HPF 3 0 - 3 HPF [facility] WBC/HPF 1 0 - 5 HPF [facility] BACTERIA Few (A) Negative [facility] MUCOUS Slight (A) Negative LPF [facility] LABORATORY SQ EPITH 5 HPF [facility] LAB[facility]ORY Specimen Urine - URINE, CLEAN CATCH Performing Organization Address [facility] Phone Number [facility] CLIA: [id number] [place] [address] POCT TEST (04/12/2020 3:32 PM RESOLUTION SPECIALIST) Pathologist Sig nature POCT PREG negative On board controls acceptable Present with C Line POCT PREG LOT # [id number] POCT PREG TEST DATE 09/09/2021 Specimen Urine - URINE, CLEAN CATCH LIPASE (04/12/2020 2:42 PM RESOLUTION SPECIALIST) Pathologist Sig nature LIPASE 55 0 - 220 U/L [facility] LABORATORY Specimen Blood - VENOUS Performing Organization Address [facility] Phone Number [facility] CLIA: [id number] [place] [address] MAGNESIUM (04/12/2020 2:42 PM RESOLUTION SPECIALIST) Pathologist Sig nature MAGNESIUM 2.0 1.7 - 2.4 mg/dL [facility] LABORATORY Specimen Blood - VENOUS Performing Organization Address City/State/Zipcode Phone Number [facility] CLIA: [id number] [place] [address] LABORATORY [address] [facility] COMP. METABOLIC PANEL ([id number]) (04/12/2020 2:42 PM RESOLUTION SPECIALIST) Pathologist Sig nature NA 140 135 - 145 [facility] mmol/L [facility] LABORATORY K 3.9 3.5 - 5.0 [facility] mmol/L [facility] CL 103 98 - 108 mmol/L [facility] CO2 TOTAL 24 23 - 31 mmol/L [facility] AGAP 13 2 - 16 [facility] LAB[facility] BUN 10 7 - 23 mg/dL [facility]ORY GLUCOSE 83 70 - 110 mg/dL [facility] LAB[facility] CREATININE 0.67 0.50 - 1.04 [facility] mg/dL [facility] LAB[facility]AT[facility] TOTAL BILI 0.7 0.1 - 1.1 mg/dL [facility] LAB[facility]ATORY CALCIUM 9.8 8.6 - 10.6 [facility] mg/dL [facility] LABORAT[facility] T PROTEIN 8.6 (H) 6.3 - 8.2 g/dL [facility] LAB[facility]ORY ALBUMIN 4.9 3.5 - 5.0 g/dL [facility] LABORATORY ALK PHOS 130 (H) 34 - 122 U/L [facility] LAB[facility]ATORY ALTv 64 (H) 5 - 35 U/L [facility] LABORATORY AST(SGOT) 62 (H) 13 - 40 U/L [facility] LABORATORY eGFR Calculation 107.2 mL/min/1.73m2 [facility] (Non[facility] LABORATORY [place]) eGFR Calculation 130.0 mL/min/1.73m2 [facility] () [facility] LABORATORY Specimen Blood - VENOUS Narrative Performed At Association of Glomerular Filtration Rate (GFR) [facility] LABORATORY and Staging of Kidney Disease* [...] tests). Performing Organization Address City/State/Zipcode Phone Number [facility] CLIA: [id number] [place] [address] CBC WITH DIFF (04/12/2020 2:42 PM RESOLUTION SPECIALIST) Pathologist Sig nature WBC 9.85 4.30 - 11.10 [facility] 10*3/L [facility] LABORATORY RBC 5.09 3.93 - 5.25 [facility] 10*6/L [facility] LABORATORY HGB 14.1 11.6 - 15.0 [facility] g/dL [facility] LABORATORY HCT 43.7 35.7 - 45.2 % [facility] LABORATORY MCV 85.9 80.6 - 95.5 fL [facility] LABORATORY MCH 27.7 25.9 - 32.8 pg [facility] LABORATORY MCHC 32.3 31.6 - 35.1 [facility] g/dL [facility] LAB[facility]ATORY RDW-SD 44.8 39.0 - 49.9 fL [facility] LAB[facility]AT[facility] RDW-CV 14.3 12.0 - 15.5 % [facility] LABORATORY PLT 381 (H) 166 - 358 [facility] 10*3/L [facility] LABORATORY MPV 9.3 (L) 9.5 - 12.9 fL [facility] LABORATORY NRBC/100 WBC 0.0 0.0 - 10.0 /100 [facility] WBCs [facility] LABORATORY NRBC x10^3 <0.01 10*3/L [facility] LABORATORY GRAN MAT (NEUT) % 62.2 % [facility] LABORATORY IMM GRAN % 0.90 % [facility] LABORATORY LYMPH % 26.9 % [facility] LAB[facility]ATORY MONO % 4.8 % [facility] LAB[facility]ATORY EOS % 4.5 % [facility] LABORATORY BASO % 0.7 % [facility] LABORATORY GRAN MAT x10^3(ANC) 6.13 1.88 - 7.09 [facility] 103/[facility] LABORATORY IMM GRAN x10^3 0.09 (H) 0.00 - 0.[address]/[facility] LABORATORY LYMPH x10^3 2.65 1.32 - 3.[address] LABORATORY MONO x10^3 0.47 0.33 - 0.[address] LABORATORY EOS x10^3 0.44 (H) 0.03 - 0.[address]/[facility] LABORATORY BASO x10^3 0.07 0.01 - 0.[address] LABORATORY Specimen Blood - VENOUS Performing Organization Address City/State/Zipcode Phone Number [facility] CLIA: [id number] [place] [address] documented in this encounter Visit Diagnoses Diagnosis Tachycardia - Primary Tachycardia, unspecified Lower abdominal pain Abdominal pain, other specified site Renal stones Calculus of kidney Flank pain Abdominal pain, unspecified site documented in this encounter Administered Medications Medication Order MAR Action Action Date Dose Rate Site acetaminophen (TYLENOL) tablet 650 mg 650 mg, Oral, Q6HPRN, Starting Sat at 1939, Until Discontinued, Routine, Pain (scale 1-3) enoxaparin (LOVENOX) injection 40 mg Given 04/13/2020 9:25 AM RESOLUTION SPECIALIST 40 mg Abdo men-SC 40 mg, Subcutaneous, DAILY, First dose on Sat04/13/20 at 0900, Until Discontinued, Routine FLUoxetine (PROZAC) capsule 20 mg Given 04/13/2020 9:23 AM RESOLUTION SPECIALIST 20 mg 20 mg, Oral, DAILY, First dose on Sat04/13/20 at 0900, Until Discontinued, Routine hydroCHLOROthiazide (ESIDRIX) tablet 12.5 Given 04/13/2020 9:21 AM RESOLUTION SPECIALIST 12.5 mg mg 12.5 mg, Oral, DAILY, First dose on Sat04/13/20 at 0900, Until Discontinued, Routine HYDROcodone-acetaminophen (NORCO 5) 5-325 Given 2019 11:42 AM RESOLUTION SPECIALIST 1 tablet mg tablet 1 tablet 1 tablet, Oral, Q6HPRN, Starting Sat04/13/20 at 0856, Until Discontinued, Routine, Pain (scale 4-6) metoprolol succinate XL (TOPROL XL) tablet Given 04/13 9:23 AM RESOLUTION SPECIALIST 12.5 mg 12.5 mg 12.5 mg, Oral, DAILY, First dose on Sat04/13/20 at 0900, Until Discontinued, Routine NaCl 0.9% (NS) IV infusion 1,000 New Bag 04/13/2020 5:[address] 1,000 mL 150 mL/hr mL at 150 mL/hr, IV Infusion, CONTINUOUS, Starting Sat04/12/20 at 2200, Until Discontinued, Routine New Bag 04/12/2020 10:26 PM RESOLUTION SPECIALIST 1,000 mL 150 mL/hr norgestimate-ethinyl estradioL (SPRINTEC) Given 2019 11:33 AM RESOLUTION SPECIALIST 1 tablet 0.25-35 mg-mcg per tablet 1 tablet 1 tablet, Oral, DAILY, First dose on Sat04/13/20 at 0900, Until Discontinued, Routine, guardian family member approving Restricted medication: MANOHAR OGLESBY ondansetron (ZOFRAN (PF)) injection 4 mg 4 mg, Slow IV Push, Q6HPRN, Starting Sat04/12/20 at 19 39, Until Discontinued, Routine, Nausea and Vomiting (N/V) proMETHazine (PHENERGAN) 25 mg in NaCl 0.9% Given 04/13/2020 11:36 AM RESOLUTION SPECIALIST 25 mg (NS) 50 mL IV piggyback 25 mg, IV Piggyback, Q4HPRN, Starting Sat04/13/20 at 0855, Until Discontinued, Routine, Nausea and Vomiting (N/V) tamsulosin (FLOMAX) capsule 0.4 mg Given 04/13/2020 9:21 AM RESOLUTION SPECIALIST 0.4 mg 0.4 mg, Oral, DAILY, First dose on Sat04/13/20 at 0900, Until Discontinued, Routine temazepam (RESTORIL) capsule 15 mg Given 04/12/2020 9:14 PM RESOLUTION SPECIALIST 15 mg 15 mg, Oral, QHSPRN, Starting Sat04/12/20 at 2048, Until Discontinued, Routine, Insomnia Medication Order MAR Action Action Date Dose Rate Site diphenhydrAMINE (BENADRYL) Given 04/12/2020 7:31 PM RESOLUTION SPECIALIST 25 mg injection 25 mg 25 mg, Slow IV Push, ONCE, 1 dose, Sat04/12/20 at 2045, STAT diphenhydrAMINE (BENADRYL) injection 25 mg Given 04/13/2020 2:58 AM RESOLUTION SPECIALIST 25 mg 25 mg, Slow IV Push, ONCE, 1 dose, Sat04/13/20 at 0330, Routine diphenhydrAMINE (BENADRYL) tablet 12.5 m g Given 04/12/2020 10:53 PM RESOLUTION SPECIALIST 12.5 mg 12.5 mg, Oral, ONCE, 1 dose, 04/12/20 at 2345, Routine famotidine 20 mg in NS 50 ml (PEPCID) 20 New Bag 04/12/2020 3:57 PM RESOLUTION SPECIALIST 20 mg mg/50 mL Piggyback 20 mg 20 mg, IV Piggyback, ONCE, 1 dose, e 04/12/20 at 1700, 50 mL HYDROcodone-acetaminophen (NORCO) 10-325 Given 04/12/2020 10 :53 PM RESOLUTION SPECIALIST 1 tablet mg tablet 1 tablet 1 tablet, Oral, ONCE, 1 dose, Sat04/12/20 at 2345, Routine KCL (KLOR-CON M20) tablet 40 mEq Given 04/13/2020 9:44 AM RESOLUTION SPECIALIST 40 mEq 40 mEq, Oral, ONCE, 1 dose, Sat04/13/20 at 1000, Routine LORazepam (ATIVAN) injection 0.5 mg Given 04/12/2020 7:05 PM RESOLUTION SPECIALIST 0.5 mg 0.5 mg, Slow IV Push, ONCE, 1 dose, Sat04/12/20 at 2000, STAT morpHINE injection 2 mg Given 04/12/2020 9:15 PM RESOLUTION SPECIALIST 2 mg 2 mg, Slow IV Push, ONCE, 1 dose, Sat04/12/20 at 2200, Routine morpHINE injection 4 mg Given 04/12/2020 3:19 PM RESOLUTION SPECIALIST 4 mg 4 mg, Slow IV Push, ONCE, 1 dose, Sat04/12/20 at 1630, STAT morpHINE injection 4 mg Given 04/12/2020 5:39 PM RESOLUTION SPECIALIST 4 mg 4 mg, Slow IV Push, ONCE, 1 dose, Sat04/12/20 at 1830, STAT NaCl 0.9% (NS) bolus infusion New Bag 04/12/2020 2:49 PM RESOLUTION SPECIALIST 1,000 mL 999 mL/hr 1,000 mL at 999 mL/hr, 1,000 mL, IV Infusion, ONCE, 1 dose, Sat04/12/20 at 1500, STAT NaCl 0.9% (NS) bolus infusion New Bag 04/12/2020 4:54 PM RESOLUTION SPECIALIST 1,000 mL 999 mL/hr 1,000 mL at 999 mL/hr, 1,000 mL, IV Infusion, ONCE, 1 dose, Sat04/12/20 at 1745, STAT NaCl 0.9% (NS) IV infusion 1,000 New Bag 04/12/2020 9:[address] 1,000 mL 999 mL/hr mL at 999 mL/hr, IV Infusion, ONCE, 1 dose, Sat04/12/20 at 2200, Routine ondansetron (ZOFRAN (PF)) injection 4 mg Given 04/12/2020 2:49 PM RESOLUTION SPECIALIST 4 mg 4 mg, Slow IV Push, ONCE, 1 dose, Sat04/12/20 at 1500, [place] ondansetron (ZOFRAN (PF)) injection 4 mg Given 04/12/2020 3:28 PM RESOLUTION SPECIALIST 4 mg 4 mg, Slow IV Push, ONCE, 1 dose, Sat04/12/20 at 1630, [place] proMETHazine (PHENERGAN) 12.5 mg in NaCl Given 04/12/2020 4:25 PM RESOLUTION SPECIALIST 12.5 mg 0.9% (NS) 50 mL piggyback 12.5 mg, IV Piggyback, ONCE, 1 dose, Sat04/12/20 at 1730, 50 mL proMETHazine (PHENERGAN) tablet 12.5 mg Given 04/13/2020 2:56 AM RESOLUTION SPECIALIST 12.5 mg 12.5 mg, Oral, ONCE, 1 dose, [facility] 04/13/20 at 0330, Routine proMETHazine (PHENERGAN) tablet 25 mg Given 04/12/2020 9:13 PM RESOLUTION SPECIALIST 25 mg 25 mg, Oral, ONCE, 1 dose, Sat04/12/20 at 2200, Routine sulfur hexafluoride microsphr (LUMASON) Given 04/13/2020 12:21 P M RESOLUTION SPECIALIST 5 mL injection 5 mL 5 mL, Intravenous, ONCE, 1 dose, 04/13/20 at 1515, Routine, guardian family member approving Restricted medication: REJI GARCIA documented in this encounter Additional Health Concerns Infection Onset Date Last Indicated Resolved Time COVID-19 Rule Out 04/12/2020 04/12/2020 04/12/2020 7: 24 PM RESOLUTION SPECIALIST documented as of this encounter Insurance Payer Benefit Plan / Subscriber ID Effective Phone Address T ype Group Dates SAMMY CHRISTIANSON [id number] 2019-Pres [address] Medic aid [employer]ALTH[employer] - HEALTHCARE ent [id number] MANAGED MEDICAID [place], [place]ICAID [place] documented as of this encounter
--- OUTSIDE RECORDS SUMMARY | 2020-04-18 11:48 | XMS REPORT | Summary of Care ---
:1995 Author Organization [facility] Address [address] [place] [address] Care Team Providers Name Role Phone Jessica Baker Insurance Hmo Kassandra Dennis MD Primary Care Provider Reason for Referral (Routine) Status Reason Specialty Diagnoses / Referred By Referred To Procedures Contact Contact New Request Cardiology Diagnoses Palpitations Delroy Sendzohra Procedures Cardiac Monitoring 48 hours MD [place] [address] [place] [address] Reason for Visit Reason Comments Follow-up Hospital follow up Other (Routine) Status Reason Specialty Diagnoses / Procedures Referred By Jessica molina Referred To Contact Closed Cardiology Diagnoses Tachycardia Philip Barth MD Cai, Qiangjun, MD Procedures Discharge Follow-up: Specialty Provider EMELY GARCIA; 1 Week [address] [address] [address] Phone: [place] [address] Fax: Encounter Details Date Type Department Care Team Description 04/15/2020 Office Visit [facility] Rad Potts Palpitations (Primary Dx); Cardiology- Maurice Cuello MD Sinus tachycardia; 146 [facility] [address] Elevated blood-pressure reading without diagnosis of hypertension Drive, [address] [place] [phone] Allergies Active Allergy Reactions Severity Noted Date Comments Latex Rash 04/13/2020 Metoclopramide Hcl Anxiety 07/12/2019 Patient s ays she gets figity, angry and mean documented as of this encounter (statuses as of 04/16/2020) Medications Medication Sig Dispensed Refills Start End Date Status Date ALBUTEROL 90 INHALE 2 7 Each 3 Active mcg/actuation PUFFS BY 0 inhalerIndications: MOUTH EVERY 6 Asthma affecting HOURS in second NEEDED FOR trimester WHEEZING FOR SHORTNESS OF BREATH potassium citrate 10 Take 1 tablet 180 tablet 1 Active mEq (1,080 mg) SR by mouth 3 0 tabletIndications: Pain (three) times daily with meals. FLUoxetine 20 mg Take 1 30 capsule 3 Ac tive capsuleIndications: capsule by 0 Depression, unspecified mouth daily. depression type, depression metoprolol succinate XL Take 0.5 15 tablet 0 Active 25 mg 24 hr tablets by 0 21 tabletIndications: mouth daily Tachycardia for 30 days. norgestimate-ethinyl Take 1 tablet 1 Package 2 04/15 Discontinued estradiol 0.25-35 by mouth 0 20 mg-mcg per daily. tabletIndications: Initiation of OCP (BCP) tamsulosin (FLOMAX) 0.4 Take 1 30 capsule 1 04/15 Discontinued mg 24 hr capsule by 0 20 capsuleIndications: mouth daily. Kidney stones hydroCHLOROthiazide 25 Take 0.5 90 tablet 1 0 Discontinued mg tabletIndications: tablets by 0 20 Kidney stones mouth daily. proMETHazine 25 mg Take 1 tablet 20 tablet 0 0 Discontinued tabletIndications: by mouth 0 20 Renal stones, Flank every 6 (six) pain hours as needed for Nausea and Vomiting (N/V). traMADoL 50 mg Take 1 tablet 10 tablet 0 04/15/20 D iscontinued tabletIndications: by mouth 0 20 acute pain every 6 (six) hours as needed for Pain (scale 4-6) for up to 7 days. Indications: acute pain documented as of this encounter (statuses as of 04/16/2020) Active Problems Problem Noted Date Sinus tachycardia 04/13/2020 Abdominal pain 04/13/2020 Tachycardia 04/12/2020 Anxiety disorder, unspecified type 01/05/2020 Insomnia, unspecified type 01/05/2020 Other depression 08/13/2019 Cervical Papanicolaou smear negative within last 12 mo [facility] 06/19/2019 Overview: 12/2018 NIL pap , see scanned records documented as of this encounter (statuses as of 04/16/2020) Resolved Problems Problem Noted Date Resolved Date [...] as of this encounter (statuses as of 04/16/2020) Immunizations Name Administration Dates Next Due Influenza [...] with No / Unsure 04/15/2020 9:44 AM [employer] someone who was confirmed or 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 documented as of this encounter Last Filed Vital Signs Vital Sign Reading Time Taken Comments Blood Pressure 132/84 04/15/2020 10:48 AM [employer] Pulse 103 04/15/2020 10:48 AM [employer] Temperature - - Respiratory Rate 19 04/15/2020 10:48 AM [employer] Oxygen Saturation 100% 04/15/2020 10:48 AM [employer] Inhaled Oxygen Concentration - - Weight 59.3 kg (130 lb 11.2 oz) 04/15/2020 10:48 AM [employer] Height 157.5 cm (5' 2") 04/15/2020 10:48 AM [employer] Body Mass Index 23.91 04/15/2020 10:48 AM [employer] documented in this encounter Progress Notes Rad Potts MD - 04/15/2020 10:30 AM CST [facility] Cardiology Consult Note Patient: Natanael Dyson Date of : 1995 Date of service: 04/15/2020 Primary Care Physician: Paz Dennis CHIEF COMPLAINT: Chief Complaint Patient presents with Follow-up Hospital follow up HISTORY OF PRESENT ILLNESS: Natanael Dyson is a 25 year old female presented to the clinic for follow-up for palpitations/recent hospital discharge History from patient. Patient seen and examined in the room. Pertinent cardiac related history reviewed from chart Patient was recently admitted to the hospital from 04/12/202205-01. She was mainly admitted for evaluation of underlying anxiety/palpitations. Work-up was negative in terms of serial troponins/echocardiogram showed preserved LV systolic function with no wall abnormalities. She was discharged home with Toprol-XL 12.5 mg daily. Palpitations at random. Frequency varies. Happens multiple times in a day. Sometimes associated with chest pain no syncope. Last for fews hrs. She is extremely concerned of these palpitations. The palpitations are not woken from sleep. No direct syncope associated with palpitations noted. Active at home No history of exertional chest pain or exertional shortness of breath noted. No chest pain at rest. No PND or orthopnea. No pedal edema. No syncopal attacks. Previous Cardiac Studies: IMAGING - I personally reviewed, pertinent results as below: ECG 04/2020 Sinus tachycardia Rightward axis (90 to 109) Possible Anterior infarct (cited on or before 09-MAR-2020) Abnormal ECG Echo 04/2020 Interpretation Summary A two-dimensional transthoracic echocardiogram with M-mode and Doppler was performed. The study was diagnostic quality. There is no comparison study available. Ejection Fraction = 55-60%. Diastolic function is normal. The left ventricular wall motion is normal. Estimated RA pressure is 0-5 mmHg. Insufficient Tricuspid regurgitation jet to estimate RVSP. PAST MEDICAL HISTORY Past Medical History: Diagnosis [...] N/A 07/21/2019 Surgeon: Shelia Quiñonez MD; Location: [facility] OR Location TUBAL LIGATION N/A 07/21/2019 Surgeon: Shelia Quiñonez MD; Location: [facility] OR Location Family History Problem Relation Age of Onset Diabetes Mother Heart Mother Neurological Mother Diabetes Father Neurological Father Asthma Sister Asthma Brother Ovarian Cancer Maternal Grandmother Breast Cancer Maternal Grandmother Heart Maternal Grandmother Neurological Maternal Grandmother Diabetes Maternal Grandfather Heart Maternal Grandfather Neurological Maternal Grandfather Heart Paternal Grandmother Ovarian Cancer Paternal Grandmother Cancer Paternal Grandfather SOCIAL HISTORY Social History Socioeconomic History Marital [...] file Gets together: Not on file Attends shinto service: Not on file Active member of [...] safe at home. Patient has 1 cat. ALLERGIES Allergies Allergen Reactions Latex Rash Reglan [Metoclopramide Hcl] Anxiety Patient says she gets figity, angry and mean MEDICATIONS Patient's Medications START taking these medications ASPIRIN (ADULT LOW DOSE ASPIRIN) 81 MG EC TABLET Take 1 tablet by mouth daily for 7 days. Take with food. CEPHALEXIN 250 MG CAPSULE Take 1 capsule by mouth every 8 (eight) hours for 7 days. CONTINUE taking these medications which have NOT CHANGED ALBUTEROL 90 MCG/ACTUATION INHALER INHALE 2 PUFFS BY MOUTH EVERY 6 HOURS NEEDED FOR WHEEZING FOR SHORTNESS OF BREATH FLUOXETINE 20 MG CAPSULE Take 1 capsule by mouth daily. METOPROLOL SUCCINATE XL 25 MG 24 HR TABLET Take 0.5 tablets by mouth daily for 30 days. POTASSIUM CITRATE 10 MEQ (1,080 MG) SR TABLET Take 1 tablet by mouth 3 (three) times daily with meals. START taking Modified Medications as Prescribed No medications on file STOP taking these medications HYDROCHLOROTHIAZIDE 25 MG TABLET Take 0.5 tablets by mouth daily. NORGESTIMATE-ETHINYL ESTRADIOL 0.25-35 MG-MCG PER TABLET Take 1 tablet by mouth daily. PROMETHAZINE 25 MG TABLET Take 1 tablet by mouth every 6 (six) hours as needed for Nausea and Vomiting (N/V). TAMSULOSIN (FLOMAX) 0.4 MG 24 HR CAPSULE Take 1 capsule by mouth daily. TRAMADOL 50 MG TABLET Take 1 tablet by mouth every 6 (six) hours as needed for Pain (scale 4-6) for up to 7 days. Indications: acute pain Current Outpatient Medications: metoprolol succinate XL 25 mg 24 hr tablet, Take 0.5 tablets by mouth daily for 30 days., Disp:15 tablet, Rfl: 0 FLUoxetine 20 mg capsule, Take 1 capsule by mouth daily., Disp: 30 capsule, Rfl: 3 potassium citrate 10 mEq (1,080 mg) SR tablet, Take 1 tablet by mouth 3 (three) times daily with meals., Disp: 180 tablet, Rfl: 1 ALBUTEROL 90 mcg/actuation inhaler, INHALE 2 PUFFS BY MOUTH EVERY 6 HOURS NEEDED FOR WHEEZING FOR SHORTNESS OF BREATH, Disp: 7 Each, Rfl: 3 aspirin (ADULT LOW DOSE ASPIRIN) 81 mg EC tablet, Take 1 tablet by mouth daily for 7 days. Takewith food., Disp: 7 tablet, Rfl: 0 cephALEXin 250 mg capsule, Take 1 capsule by mouth every 8 (eight) hours for 7 days., Disp: 21 capsule, Rfl: 0 REVIEW OF SYSTEMS: Comprehensive 10-system review was conducted and were negative except for what's noted in the HPI. The following systems were reviewed: Constitutional, cardiovascular, respiratory, gastrointestinal, genitourinary, musculoskeletal, neurologic, psychiatric, endocrinological, and hematological. PHYSICAL EXAMINATION: Vitals: 04/15/20 1048 BP: 132/84 BP Location: Left arm Patient Position: Sitting BP CUFF SIZE: Adult Small Pulse: 103 Resp: 19 SpO2: 100% Weight: 130 lb 11.2 oz (59.3 kg) Height: 5' 2" (1.575 m) General: no apparent distress HEENT: normocephalic atraumatic Neck: supple, no lymphadenopathy, no bruits, no JVD Lungs: clear to auscultation bilaterally. No wheezes or rhonchi. No increased work of breathing. Cardio: Regular rate and rhythm, S1&S2 normal, no murmurs, rubs or gallops Abdomen: soft; non-tender; non-distended; normoactive bowel sounds. : not examined Rectal: not examined Extremities: no clubbing, cyanosis, or edema. Skin: no rashes, no visible lesions. Neuro: no gross focal deficits LABS - Reviewed pertinent labs as below: CBC BMP PT/INR WBC (10*3/L) Date Value 04/13/2020 8.78 NA (mmol/L) Date Value 04/13/2020 137 No results found for: PT PLT (10*3/L) Date Value 04/13/2020 395 (H) K (mmol/L) Date Value 04/13/2020 3.2 (L) No results found for: PTINR HGB (g/dL) Date Value 04/13/2020 11.0 (L) BUN (mg/dL) Date Value 04/13/2020 5 (L) HCT (%) Date Value 04/13/2020 35.0 (L) CREATININE (mg/dL) Date Value 04/13/2020 0.74 LIPID PROFILE GLUCOSE (mg/dL) Date Value 04/13/2020 90 No results found for: CHOL TSH No results found for: LDL TSH (mIU/L) Date Value 04/12/2020 2.14 CARDIAC ENZYMES No results found for: HDL No results found for: CK No results found for: TRIG LFTs No results found for: CKMB AST(SGOT) (U/L) Date Value 04/12/2020 62 (H) TROPONIN I (ng/mL) Date Value 04/13/2020 <0.012 ALTv (U/L) Date Value 04/12/2020 64 (H) No results found for: BNP No results found for: LDL Recent Labs 04/13/20 0339 TROPNI <0.012 There are no current results on file for these tests and/or test for 1 year. No results found for: LDL No results found for: NTBNP ASSESSMENT/PLAN 1. Palpitations Cardiac Monitoring 48 hours 2. Sinus tachycardia 3. Elevated blood-pressure reading without diagnosis of hypertension Palpitations: Long discussion regarding the pathophysiology for palpitations/sinus tachycardia. We reviewed the EKG/echocardiogram that was done in the hospital. Copies given to her. Explained no significant abnormalities noted from the cardiac standpoint. Her baseline blood work were also within acceptable normal limits. Pathophysiology of her sinus tachycardia discussed in detail Possible etiologies include anxiety/deconditioning/other noncardiac reasons. Recommended to continue Toprol-XL 12.5 mg daily for now. Plan for Holter monitor to assess for symptoms and rhythm correlation and to assess for sleeping heart rate If significant elevated heart rate is noted then will consider changing Toprol- XL to nadolol 20 mg daily. Recommended to increase free water intake significantly. Reduce caffeine intake to less than 12 ounces a day. Recommended to start an exercise regimen with a goal of walking at least 10,000 steps in a day She was history of her mother at age of 30 is having ? Stents similarly she also states she has palpitations. Unsure if she has any underlying arrhythmias. Recommended to get further details regarding that. Recommend keep the potassium more than 4 magnesium more than 2. She reports she has been not takingthe hydrochlorothiazide/KCl at least the last few months prior to the admission to the hospital Elevated blood pressure especially diastolic: We will continue to monitor. Currently to continue Toprol-XL 12.5 mg daily Follow-up with us in on 6 to 8 weeks. No orders of the defined types were placed in this encounter. Requested Prescriptions No prescriptions requested or ordered in this encounter Patient's diease process and its evaluation and treatment were discussed. We discussed each of for cardio vascular-related problems and discussed long-term goals and expectations for the each problem.I reviewed each of the cardiac medications in detail. Reviewed the medication with patient in detail recommended to continue taking the current medications without further changes. Recommended goal BP < 130/80 consistently, LDL << 100, HbA1c < 6.5. Recommended, explained and stressed the importance of healthy eating habits and exercises and lifestyle modifications Follow up as planned is predicated on symptoms stability and/or acceptable test results. Patient is urged to call in sooner should problems arise or if there is no improvement in cardiac symptoms. ER warning signs and symptoms explained and patient verbalized understanding. My diagnostic impression and treatment plans were discussed at length with the patient. All side effects as well as drug-drug interactions and risks discussed at length. Ample opportunity was offered and encouraged to ask questions during this visit and patient appreciated the answers given by me [email or web address] statisfcation in the answers given. We reviewed the [place] [employer] recommendations for reduction of overall cardio vascular risk. The importance of monitoring the blood pressure carefully both at home on regular basis along with other physicians appointment was stressed in detail. It was advised that to daily physical activity be performed with 30 minutes of sustained exercise for both cardio vascular fitness and improvement for generalized medical health and well-being. Thank you for allowing us to participate in the care of Natanale Dyson. If you have any questions or concerns please feel free to call our office at [phone]. I would be happy to be of further assistance for Natanael Dyson wellbeing. Simon Potts MD Lining Stamper, Division of Cardiology [facility] documented in this encounter Plan of Treatment Date Type Specialty Care Team Description 04/18/2020 Office Visit Urology Eder Gilbert MD [address] [place] [address]. [place] [phone] 04/18/2020 Telemedicine Visit Nephrology Lopez Hitchcock M D [address] [place] [phone] 06/02/2020 Office Visit Cardiology Rad Potts MD [address] [place] [address] 08/11/2020 Office Visit Obstetrics & Quiñonez, Munir Johnson Gynecology [address] [facility] [address] [place], [place] [address] Name Type Priority Associated Diagnoses Order S chedule Cardiac Monitoring 48 HEART STATION Routine Palpitations Order ed: 04/15/2020 hours Health Maintenance Due Date Last Done Comments HPV VACCINES (1 - 2-dose 2006 series) PAP SMEAR 02/19/2016 INFLUENZA VACCINE (#1) 2020 02/06/2019 Postponed from 01/12/2020 (Vacc ine not available) Depression Screening 09/01/2020 09/02/2019, 09/02/2019 DTaP,Tdap,and Td Vaccines (2 05/21/2029 05/21/2019 - Td) PNEUMOCOCCAL 0-64 YEARS Discontinued COMBINED SERIES documented as of this encounter Results Not on filedocumented in this encounter Visit Diagnoses Diagnosis Palpitations - Primary Sinus tachycardia Other specified cardiac dysrhythmias Elevated blood-pressure reading without diagnosis of hypertension Elevated blood pressure reading without diagnosis of hypertension documented in this encounter Insurance Payer Benefit Plan / Subscriber ID Effective Phone Address T ype Group Dates SAMMY CHRISTIANSON [id number] 2019-Pres Alisson RYAN Medic aid HEALTHCARE - HEALTHCARE ent [id number] MANAGED MEDICAID [place], [place]ICA[place] documented as of this encounter
--- OUTSIDE RECORDS SUMMARY | 2020-04-18 11:49 | XMS REPORT | Summary of Care ---
:1995 Author Organization [facility] Address [address] [place] [id number] Care Team Providers Name Role Phone Jessica Baker Insurance Hmo Kassandra Dennis MD Primary Care Provider Reason for Referral (Routine) Status Reason Specialty Diagnoses / Referred By Referred To Procedures Contact Contact New Request Diagnoses Phlebitis, superficial [place], [place] Procedures UNILATERAL VENOUS DUPLEX UPPER BY VASCULAR LAB MD Kassandra [address] [place] [phone] (Routine) Status Reason Specialty Diagnoses / Procedures Referred By Farzana hernandez To Contact Contact New Request Gastroenterology Diagnoses Abdominal pain of unknown cause Sonny, Procedures CONSULT/REFERRAL GASTROENTEROLOGY Paz Cannon MD [address] [place] [phone] Reason for Visit Reason Comments New Patient Ear Pain Hand Pain Abdominal Pain (Routine) Status Reason Specialty Diagnoses / Referred By Referred To Procedures Contact Contact Closed Family Medicine Diagnoses Tachycardia Flank pain Philip Barth MD [place], [place] Procedures Discharge Follow-up: PCP PRASANNA VARGAS CAM; 1 Week [facility] MD Kassandra [address] [address] [place], [place] Phone: [phone] Phone: Fax: Encounter Details Date Type Department Care Team Description 04/15/2020 Office Visit [facility] Family [place], [place] Phle bitis, superficial, right hand (Primary Dx); Medicine - Maurice Cannon MD Acute otalgia, left; [address] [place] [address] Abdominal pain of unknown cause; Drive [place], [place] Hypokalemia; [place] [address] Hypocalcemia [phone] Allergies Active Allergy Reactions Severity Noted Date Comments Latex Rash 04/13/2020 Metoclopramide Hcl Anxiety 07/12/2019 Patient s ays she gets figity, angry and mean documented as of this encounter (statuses as of 04/17/2020) Medications Medication Sig Dispensed Refills Start End [...] tabletIndications: mouth daily Tachycardia for 30 days. aspirin (ADULT LOW DOSE Take 1 tablet 7 tablet 0 Active ASPIRIN) 81 mg EC by mouth 0 20 tabletIndications: daily for 7 Phlebitis, superficial days. Take with food. cephALEXin 250 mg Take 1 21 capsule 0 04/22/20 A ctive capsuleIndications: capsule by 0 20 Phlebitis, superficial mouth every 8 (eight) hours for 7 days. norgestimate-ethinyl Take 1 tablet 1 Package [...] as of this encounter (statuses as of 04/17/2020) Active Problems Problem Noted Date Sinus tachycardia 04/13/2020 Abdominal pain 04/13/2020 Tachycardia 04/12/2020 Anxiety disorder, unspecified type 01/05/2020 Insomnia, unspecified type 01/05/2020 Other depression 08/13/2019 Cervical Papanicolaou smear negative within last 12 mo [facility] 06/19/2019 Overview: 12/2018 NIL pap , see scanned records documented as of this encounter (statuses as of 04/17/2020) Resolved Problems Problem Noted Date Resolved Date [...] as of this encounter (statuses as of 04/17/2020) Immunizations Name Administration Dates Next Due Influenza [...] with No / Unsure 04/15/2020 9:44 AM SALES ACCOUNT SPECIALIST someone who was confirmed or 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 documented as of this encounter Last Filed Vital Signs Vital Sign Reading Time Taken Comments Blood Pressure 129/89 04/15/2020 9:45 AM SALES ACCOUNT SPECIALIST Pulse 92 04/15/2020 9:45 AM SALES ACCOUNT SPECIALIST Temperature 36.6 C (97.8 F) 04/15/2020 9:45 AM SALES ACCOUNT SPECIALIST Respiratory Rate - - Oxygen Saturation - - Inhaled Oxygen Concentration - - Weight 59.9 kg (132 lb) 04/15/2020 9:45 AM SALES ACCOUNT SPECIALIST Height 157.5 cm (5' 2") 04/15/2020 9:45 AM SALES ACCOUNT SPECIALIST Body Mass Index 24.14 04/15/2020 9:45 AM SALES ACCOUNT SPECIALIST documented in this encounter Patient Instructions Patient InstructionsPaz Dennis MD - 04/15/2020 10:00 AM SALES ACCOUNT SPECIALIST Patient Education Unknown Causes of Abdominal Pain(Female) The exact cause of your belly (abdominal) pain is not clear. This does not mean that this is something to worry about. Everyone likes to know the exact cause of the problem. But sometimes with belly pain, there is no clear-cut cause, and this could be a good thing. The good news is that your symptoms can be treated, and you will feel better. Your condition does not seem serious now. But sometimes the signs of a serious problem may take moretime to appear. For this reason,it is important for you to watch for any new symptoms, problems,or worsening of your condition. Over the next few days, the abdominal pain may come and go. Or it may be constant. Other common symptoms can include nausea and vomiting. Sometimes it can be difficult to tell if you feel nauseous. Youmay just feel bad and not connect that feeling to nausea. Constipation, diarrhea, and a fever may goalong with the pain. The pain may continue even if treated correctly over the following days. Depending on how things go,sometimes the cause can become clear and may need moreor different treatment. Additional evaluations, medicines, or tests may also be needed. Home care Your healthcare provider may prescribe medicine for pain, symptoms, or an infection. Follow the healthcare provider's instructions for taking these medicines. General care Rest as much as you can until your next exam. No strenuous activities. Try to find positions that ease discomfort. A small pillow placed on the abdomen may help relievepain. Something warm on your abdomen (such as a heating pad) may help, but be careful not to burn yourself. Diet Dontforce yourself to eat, especially if having cramps, vomiting, or diarrhea. Water is important so you don't get dehydrated. Soup may also be good. Sports drinks may also help, especially if they are not too acidic. Don't drink sugary drinks as this can make things worse. Take liquids in small amounts. Dontguzzle them. Caffeine sometimes makes the pain and cramping worse. Dont takedairy products if you have vomiting or diarrhea. Don't eat large amounts at a time. Wait a few minutes between bites. Eat a diet low in fiber (called a low-residue diet). Foods allowed include refined breads, white rice, fruit and vegetable juices without pulp, tender meats. These foods will pass more easily through the intestine. Dont havewhole-grain foods, whole fruits and vegetables, meats, seeds and nuts, fried or fatty foods, dairy, alcohol and spicy foods until your symptoms go away. Follow-up care Follow up with your healthcare provider, or as advised, if your pain does not begin to improve in the next 24 hours. Call [phone] if any of these occur: Trouble breathing Confusion Fainting or loss of consciousness Rapid heart rate Seizure When to seek medical advice Call your healthcare provider right away if any of these occur: Pain gets worse or moves to the right lower abdomen New or worsening vomiting or diarrhea Swelling of the abdomen Unable to pass stool for more than3 days Fever of 100.4F (38C) or higher, or as directed by your healthcare provider. Blood in vomit or bowel movements (dark red or black color) Yellow color of eyes and skin (jaundice) Weakness, dizziness Chest, arm, back, neck, or jaw pain Unexpected vaginal bleeding or missed period Can't keep down liquids or water and you are getting dehydrated [employer] last reviewed this educational content on 10/11/201719993565-4644 [employer] [address] [place] [address]. All rights reserved. This information is not intended as a substitute for professional medical care. Always follow your healthcare professional's instructions. S ACCOUNT SPECIALIST documented in this encounter Progress Notes Paz Dennis MD - 04/15/2020 10:00 AM CST CC: Chief Complaint Patient presents with New Patient Ear Pain Hand Pain Abdominal Pain HPI Natanael Nelia Dyson is a 25 year old F new patient who presents to establish primary care and for multiple concerns including hand pain, abdominal pain, and ear pain. Her significant chronic health conditions include anxiety, depression, kidney stones, HTN, and asthma. The patient's specialists: Elenita selby/Dr. Vargas-[facility] SPREADER, Dr. Hitchcock-Nephrology. She was hospitalized 04/12/20-04/13/20 for tachycardia and she has a f/u appointment with [facility] Cardiology this morning for hospital follow-up. Hand Pain Incident onset: 2-3 days ago. Injury mechanism: per the patient her hand pain started after having an IV placed during her recent hospitalization. The pain is present in the right hand. The quality of the pain is described as aching. The pain does not radiate. The pain is at a severity of 6/10. The pain is moderate. The pain has been fluctuating since the incident. Pertinent negatives include no chest pain, muscle weakness, numbness or tingling. Associated symptoms comments: + Decreased ROM of the hand due to pain (she says it is hard to make a fist), + swelling, + brusing. The symptoms are aggravated by movement and palpation. She has tried elevation, rest, acetaminophen and NSAIDs for the symptoms. The treatment provided no relief. Abdominal Pain Pain location: lower. Pain quality: aching Pain radiates to: Does not radiate Pain severity: Moderate Onset quality: Unable to specify Timing: Intermittent Progression: Unchanged Chronicity: Chronic Context: previous surgery ( and BTL 07/2019) Context: not eating, not recent travel, not suspicious food intake and not trauma Relieved by: None tried Associated symptoms: no anorexia, no belching, no chest pain, no chills, no constipation, no cough, no diarrhea, no dysuria, no fever, no flatus, no hematemesis, no hematochezia, no hematuria, no melena, no nausea, no shortness of breath, no sore throat, no vaginal bleeding, no vaginal discharge and no vomiting Ear Pain Location: Left Behind ear: No abnormality Quality: Sharp Severity: Mild Onset quality: Sudden Duration: 1 day (started after she accidentally pushed a Q-tip too far into her ear) Timing: Intermittent Progression: Unchanged Chronicity: New Context: direct blow and foreign body Relieved by: None tried Ineffective treatments: None tried Associated symptoms: abdominal pain Associated symptoms: no cough, no diarrhea, no fever, no sore throat and no vomiting Risk factors: no chronic ear infection Allergies Allergen Reactions Latex Rash Reglan [Metoclopramide Hcl] Anxiety Patient says she gets figity, angry and mean Current Outpatient Medications: metoprolol succinate XL 25 [...] OF BREATH, Disp: 7 Each, Rfl: 3 Past Medical History: Diagnosis Date Anemia of [...] N/A 07/21/2019 Surgeon: Prasanna Vargas MD; Location: [facility] OR Location TUBAL LIGATION N/A 07/21/2019 Surgeon: Prasanna Vargas MD; Location: [facility] OR Location Family History Problem Relation Age of Onset Diabetes Mother Heart Mother Neurological Mother Diabetes Father Neurological Father Asthma Sister Asthma Brother Ovarian Cancer Maternal Grandmother Breast Cancer Maternal Grandmother Heart Maternal Grandmother Neurological Maternal Grandmother Diabetes Maternal Grandfather Heart Maternal Grandfather Neurological Maternal Grandfather Heart Paternal Grandmother Ovarian Cancer Paternal Grandmother Cancer Paternal Grandfather Social History Socioeconomic History Marital status: Single [...] file Gets together: Not on file Attends [employer] service: Not on file Active member of [...] 1 cat. Review of Systems Constitutional: Negative. Negative for chills and fever. HENT: Positive for ear pain. Negative for sore throat. Eyes: Negative. Respiratory: Negative. Negative for cough and shortness of breath. Cardiovascular: Positive for palpitations. Negative for chest pain. Gastrointestinal: Positive for abdominal pain. Negative for anorexia, constipation, diarrhea, flatus, hematemesis, hematochezia, melena, nausea and vomiting. Genitourinary: Negative. Negative for dysuria, hematuria, vaginal bleeding and vaginal discharge. Musculoskeletal: Positive for arthralgias and joint swelling. Skin: Negative. Neurological: Negative. Negative for tingling and numbness. Psychiatric/Behavioral: Negative. Endocrine: Endocrine negative Vital signs BP 129/89 | Pulse 92 | Temp 36.6 C (97.8 F) (Tympanic) | Ht 5' 2" (1.575 m) | Wt 132 lb (59.9 kg) | LMP 03/13/2020 (Approximate) | BMI 24.14 kg/m Physical Exam Vitals signs and nursing note reviewed. Constitutional: General: She is not in acute distress. Appearance: She is well-developed. HENT: Head: Normocephalic and atraumatic. Right Ear: Tympanic membrane, ear canal and external ear normal. Left Ear: Tympanic membrane, ear canal and external ear normal. Eyes: General: No scleral icterus. Conjunctiva/sclera: Conjunctivae normal. Pupils: Pupils are equal, round, and reactive to light. Neck: Musculoskeletal: Neck supple. Thyroid: No thyromegaly. Vascular: No carotid bruit. Cardiovascular: Rate and Rhythm: Normal rate and regular rhythm. Heart sounds: Normal heart sounds. No murmur. No friction rub. No gallop. Pulmonary: Effort: Pulmonary effort is normal. Breath sounds: Normal breath sounds. No wheezing, rhonchi or rales. Abdominal: General: There is no distension. Palpations: There is no mass. Tenderness: There is abdominal tenderness. Musculoskeletal: Right hand: She exhibits decreased range of motion, tenderness, bony tenderness and swelling (w/ ecchymoses). Normal sensation noted. Normal strength noted. Right lower leg: No edema. Left lower leg: No edema. Lymphadenopathy: Cervical: No cervical adenopathy. Skin: General: Skin is warm and dry. Coloration: Skin is not jaundiced or pale. Findings: No rash. Neurological: General: No focal deficit present. Mental Status: She is alert and oriented to person, place, and time. Psychiatric: Mood and Affect: Mood is anxious. Mood is not depressed. Speech: Speech normal. Thought Content: Thought content normal. Cognition and Memory: Cognition and memory normal. Judgment: Judgment normal. Labs Admission on 04/12/2020, Discharged on 04/13/2020 Component Date Value WBC 04/12/2020 9.85 RBC 04/12/2020 5.09 HGB 04/12/2020 14.1 HCT 04/12/2020 43.7 MCV 04/12/2020 85.9 MCH 04/12/2020 27.7 MCHC 04/12/2020 32.3 RDW-SD 04/12/2020 44.8 RDW-CV 04/12/2020 14.3 PLT 04/12/2020 381* MPV 04/12/2020 9.3* NRBC/100 WBC 04/12/2020 0.0 NRBC x10^3 04/12/2020 <0.01 GRAN MAT (NEUT) % 04/12/2020 62.2 IMM GRAN % 04/12/2020 0.90 LYMPH % 04/12/2020 26.9 MONO % 04/12/2020 4.8 EOS % 04/12/2020 4.5 BASO % 04/12/2020 0.7 GRAN MAT x10^3(ANC) 04/12/2020 6.13 IMM GRAN x10^3 04/12/2020 0.09* LYMPH x10^3 04/12/2020 2.65 MONO x10^3 04/12/2020 0.47 EOS x10^3 04/12/2020 0.44* BASO x10^3 04/12/2020 0.07 NA 04/12/2020 140 K 04/12/2020 3.9 CL 04/12/2020 103 CO2 TOTAL 04/12/2020 24 AGAP 04/12/2020 13 BUN 04/12/2020 10 GLUCOSE 04/12/2020 83 CREATININE 04/12/2020 0.67 TOTAL BILI 04/12/2020 0.7 CALCIUM 04/12/2020 9.8 T PROTEIN 04/12/2020 8.6* ALBUMIN 04/12/2020 4.9 ALK PHOS 04/12/2020 130* ALTv 04/12/2020 64* AST(SGOT) 04/12/2020 62* eGFR Calculation (Non-Af* 04/12/2020 107.2 eGFR Calculation (Justine* 04/12/2020 130.0 APPEARANCE 04/12/2020 Clear COLOR 04/12/2020 Straw* PH 04/12/2020 7.0 SP GRAVITY 04/12/2020 1.006 GLU U QUAL 04/12/2020 Normal BLOOD 04/12/2020 1+* KETONES 04/12/2020 Negative PROTEIN 04/12/2020 Negative UROBILIN 04/12/2020 Normal BILIRUBIN 04/12/2020 Negative NITRITE 04/12/2020 Negative LEUK ANJELICA 04/12/2020 Negative RBC/HPF 04/12/2020 3 WBC/HPF 04/12/2020 1 BACTERIA 04/12/2020 Few* MUCOUS 04/12/2020 Slight* SQ EPITH 04/12/2020 5 POCT PREG 04/12/2020 negative On board controls accept* 04/12/2020 Present POCT PREG LOT # 04/12/2020 [id number] POCT PREG TEST DA* 04/12/2020 09/09/2021 MAGNESIUM 04/12/2020 2.0 LIPASE 04/12/2020 55 TSH 04/12/2020 2.14 BENZO U 04/12/2020 Negative KYLE U 04/12/2020 Negative AMPHET 04/12/2020 Negative THC 04/12/2020 Negative METHADONE 04/12/2020 Negative Meth U 04/12/2020 Negative OPIATES 04/12/2020 Presumptive Positive* Cocaine Metabolite 04/12/2020 Negative PROPOXY 04/12/2020 Negative Tric U 04/12/2020 Negative PCP 04/12/2020 Negative OXYCOD 04/12/2020 Negative D-DIMER 04/12/2020 0.31 SARS-CoV-2 Rapid ID NOW 04/12/2020 Not Detected WBC 04/13/2020 8.78 RBC 04/13/2020 3.94 HGB 04/13/2020 11.0* HCT 04/13/2020 35.0* MCV 04/13/2020 88.8 MCH 04/13/2020 27.9 MCHC 04/13/2020 31.4* RDW-SD 04/13/2020 47.5 RDW-CV 04/13/2020 14.5 PLT 04/13/2020 395* MPV 04/13/2020 9.6 NRBC/100 WBC 04/13/2020 0.0 NRBC x10^3 04/13/2020 <0.01 GRAN MAT (NEUT) % 04/13/2020 59.5 IMM GRAN % 04/13/2020 0.80 LYMPH % 04/13/2020 29.6 MONO % 04/13/2020 5.6 EOS % 04/13/2020 3.9 BASO % 04/13/2020 0.6 GRAN MAT x10^3(ANC) 04/13/2020 5.23 IMM GRAN x10^3 04/13/2020 0.07* LYMPH x10^3 04/13/2020 2.60 MONO x10^3 04/13/2020 0.49 EOS x10^3 04/13/2020 0.34 BASO x10^3 04/13/2020 0.05 NA 04/13/2020 137 K 04/13/2020 3.2* CL 04/13/2020 107 CO2 TOTAL 04/13/2020 21* AGAP 04/13/2020 9 BUN 04/13/2020 5* GLUCOSE 04/13/2020 90 CREATININE 04/13/2020 0.74 CALCIUM 04/13/2020 8.0* eGFR Calculation (Non-Af* 04/13/2020 95.6 eGFR Calculation (Justine* 04/13/2020 115.9 MAGNESIUM 04/13/2020 1.7 TROPONIN I 04/13/2020 <0.012 Radiology Xr Chest 1 Vw Result Date: 04/12/2020 No acute cardiopulmonary abnormality. Preliminary Report Dictated by Resident: Adrian Allred MD., have reviewed this study and agree with the above report. Xr Kub Result Date: 04/12/2020 Nonobstructive bowel gas pattern. Preliminary Report Dictated by Resident: Adrian Allred MD., have reviewed this study and agree with the above report. ASSESSMENT/PLAN Diagnoses and all orders for this visit: Establishing care with new doctor, encounter for Any available medical records in [facility] were reviewed. Will request the patient's outside medical records for my review. Phlebitis, superficial, right hand She likely has superficial phlebitis but I have ordered a venous duplex study to r/o any deep clots. I will tx her with ASA, an antibiotic, elevation, and warm compresses. ER precautions for worsening symptoms. - aspirin (ADULT LOW DOSE ASPIRIN) 81 mg EC tablet; Take 1 tablet by mouth daily for 7 days. Take with food. - cephALEXin 250 mg capsule; Take 1 capsule by mouth every 8 (eight) hours for 7 days. - UNILATERAL VENOUS DUPLEX UPPER BY VASCULAR LAB; Future Acute otalgia, left Reassured the patient her ear exam is WNL. Abdominal pain of unknown cause Chronic issue with previous work-up that was unrevealing. Referral to GI for further evaluation andmanagement of her chronic abdominal pain. - CONSULT/REFERRAL GASTROENTEROLOGY Hypokalemia, Hypocalcemia Noted during her hospitalization. Continue potassium supplementation. Will re- evaluate her K+, calcium, and albumin in a couple of weeks. - COMP. METABOLIC PANEL (90730); Standing Uncontrolled tachycardia, HTN Management per Cardiology. Follow-up with this specialist as scheduled/planned. Plan of care, desired health behaviors, goals, Ddx, and any prescribed medications were discussed with the patient. This visit did not involve counseling and coordination that comprised more than 50% of the visit time. Education resources and self-management tools were provided/reviewed with the AVS. Patient/guardian/family verbalized understanding and agrees to the plan of care. Barriers to care: None. Ability to manage care: Good. Advanced care planning (living will) information was not given/offered to the patient to review for discussion at a future visit. If applicable, the [place] PMPdatabase was accessed to review any controlled substance prescription claims data. If the patient is taking prescribed medications, the [employer] prescription claims data in [employer] [facility] was reviewed to assess patient compliance with the medication treatment plan. Follow-up: Return if symptoms worsen or fail to improve. I recommend an annual wellness physical for preventive health maintenance when due. documented in this encounter Plan of Treatment Date Type Specialty Care Team Description 04/18/2020 Office Visit Urology Eder Gilbert MD [address] [place] [address]. [place] [phone] 04/18/2020 Telemedicine Visit Nephrology Lopez Hitchcock M D [address] [place] [phone] 06/02/2020 Office Visit Cardiology Rad Potts MD [address] ROWE [address] [place] [phone] 08/11/2020 Office Visit Obstetrics & VargasPrasanna M D Gynecology [address] [facility] [address] Rowe [address] [place] [phone] Name Type Priority Associated Diagnoses Order S chedule COMP. METABOLIC PANEL LAB Routine Hypokalemi a 1 Occurrences starting ([address]) Hypocalcemia 04/17/2020 unti l 10/16/2020 Health Maintenance Due Date Last Done Comments HPV VACCINES (1 - 2-dose 2006 series) PAP SMEAR 02/19/2016 INFLUENZA VACCINE (#1) 2020 02/06/2019 Postponed from 01/12/2020 (Vacc ine not available) Depression Screening 09/01/2020 09/02/2019, 09/02/2019 DTaP,Tdap,and Td Vaccines (2 05/21/2029 05/21/2019 - Td) PNEUMOCOCCAL 0-64 YEARS Discontinued COMBINED SERIES documented as of this encounter Results Not on filedocumented in this encounter Visit Diagnoses Diagnosis Phlebitis, superficial, right hand - Gabriela sabi Phlebitis and thrombophlebitis of unspec ified site Acute otalgia, left Abdominal pain of unknown cause Hypokalemia Hypopotassemia Hypocalcemia documented in this encounter Insurance Payer Benefit Plan / Subscriber ID Effective Phone Address T ype Group Dates SAMMY CHRISTIANSON [id number] 2019-Pres [address] Medic aid HEALTHCARE - HEALTHCARE ent [id number] MANAGED MEDICAID [place], MEDICAID [place] documented as of this encounter
--- OUTSIDE RECORDS SUMMARY | 2020-04-18 11:49 | XMS REPORT | Summary of Care ---
:1995 Author Organization [facility] Address [address] [place] [address] Care Team Providers Name Role Phone Jessica Baker Insurance Hmo Kassandra Dennis MD Primary Care Provider Reason for Referral (Routine) Status Reason Specialty Diagnoses / Referred By Referred To Procedures Contact Contact New Request Diagnoses Phlebitis, superficial Dunlevy, Wondiful Procedures UNILATERAL VENOUS DUPLEX UPPER BY VASCULAR LAB MD Kassandra [address] [place] [phone] (Routine) Status Reason Specialty Diagnoses / Procedures Referred By Farzana hernandez To Contact Contact New Request Gastroenterology Diagnoses Abdominal pain of unknown cause Sonny, Procedures CONSULT/REFERRAL GASTROENTEROLOGY Paz Cannon MD [address] [place] [phone] Reason for Visit Reason Comments New Patient Ear Pain Hand Pain Abdominal Pain (Routine) Status Reason Specialty Diagnoses / Referred By Referred To Procedures Contact Contact Closed Family Medicine Diagnoses Tachycardia Flank pain Philip Barth MD Colbert, Wondiful Procedures Discharge Follow-up: PCP PRASANNA VARGAS CAM; 1 Week 301 [facility] MD Kassandra [address] [address] [place], [place] Phone: [phone] Phone: Fax: Encounter Details Date Type Department Care Team Description 04/15/2020 Office Visit [facility] Family Sonny, Wondiful Phle bitis, superficial, right hand (Primary Dx); Medicine - Maurice Cannon MD Acute otalgia, left; [address] [place] [address] Abdominal pain of unknown cause; Drive [place], [place] Hypokalemia; [place] [address] Hypocalcemia [phone] Allergies Active Allergy Reactions Severity Noted Date [...] with No / Unsure 04/15/2020 9:44 AM APPLICATIONS SUPPORT ANALYST someone who was confirmed or 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 documented as of this encounter Last Filed Vital Signs Vital Sign Reading Time Taken Comments Blood Pressure 129/89 04/15/2020 9:45 AM APPLICATIONS SUPPORT ANALYST Pulse 92 04/15/2020 9:45 AM APPLICATIONS SUPPORT ANALYST Temperature 36.6 C (97.8 F) 04/15/2020 9:45 AM APPLICATIONS SUPPORT ANALYST Respiratory Rate - - Oxygen Saturation - - Inhaled Oxygen Concentration - - Weight 59.9 kg (132 lb) 04/15/2020 9:45 AM APPLICATIONS SUPPORT ANALYST Height 157.5 cm (5' 2") 04/15/2020 9:45 AM APPLICATIONS SUPPORT ANALYST Body Mass Index 24.14 04/15/2020 9:45 AM APPLICATIONS SUPPORT ANALYST documented in this encounter Patient Instructions Patient InstructionsPaz Dennis MD - 04/15/2020 10:00 AM APPLICATIONS SUPPORT ANALYST Patient Education Unknown Causes of Abdominal Pain(Female) [...] in the next 24 hours. Call [phone] if any of these occur: Trouble breathing [...] or water and you are getting dehydrated [employer] last reviewed this educational content on 10/11/201719995447-0912 [employer]. [address] [place] [address]. All rights reserved. This information is not intended as a substitute for professional medical care. Always follow your healthcare professional's instructions. ICATIONS SUPPORT ANALYST documented in this encounter Progress Notes Paz [...] and asthma. The patient's specialists: Elenita selby/Dr. Vargas-OVERNIGHT CASHIER, Dr. Hitchcock-Nephrology. She was hospitalized 04/12/20-04/13/20 for tachycardia and she has a f/u appointment with [facility] Cardiology this morning for hospital [...] N/A 07/21/2019 Surgeon: Prasanna Vargas MD; Location: [facility] Labor and Delivery OR Location TUBAL LIGATION N/A 07/21/2019 Surgeon: Prasanna Vargas MD; Location: [facility] Labor and Delivery OR [...] file Gets together: Not on file Attends nondenominational service: Not on file Active member of [...] 04/12/2020 Present POCT PREG LOT # 04/12/2020 [id number] POCT PREG TEST DA* 04/12/2020 09/09/2021 MAGNESIUM [...] encounter for Any available medical records in [facility] were reviewed. Will request the patient's outside [...] couple of weeks. - COMP. METABOLIC PANEL (91608); Standing Uncontrolled tachycardia, HTN Management per Cardiology. [...] at a future visit. If applicable, the [place] PMPdatabase was accessed to review any controlled substance prescription claims data. If the patient is taking prescribed medications, the [employer] prescription claims data in [employer] was reviewed to assess patient compliance with the medication treatment plan. Follow-up: Return if symptoms worsen or fail to improve. I recommend an annual wellness physical for preventive health maintenance when due. documented in this encounter Plan of Treatment Date Type Specialty Care Team Description 04/18/2020 Office Visit Urology Eder Gilbert MD [address] [place] [address]. [place] [phone] 04/18/2020 Telemedicine Visit Nephrology Lopez Hitchcock M D [address] [place] [phone] 06/02/2020 Office Visit Cardiology Rad Potts MD [address] [place] [phone] 08/11/2020 Office Visit Obstetrics & VargasPrasanna M D Gynecology [address] [facility] [address] Row[address] [place] [address] Name Type Priority Associated Diagnoses Order S chedule COMP. METABOLIC PANEL LAB Routine Hypokalemi a 1 Occurrences starting (55590) Hypocalcemia 04/17/2020 unti l 10/16/2020 Health Maintenance [...] Address T ype Group Dates SAMMY CHRISTIANSON [id number] 2019-Pres [address] Medic aid HEALTHCARE [place]ARE [place] [id number] MANAGED MEDICAID [place], [place] documented as of this encounter
--- OUTSIDE RECORDS SUMMARY | 2020-04-18 11:49 | XMS REPORT | Summary of Care ---
:1995 Author Organization [facility] Address [address] [place] [address] Care Team Providers Name Role Phone Jessica Baker Insurance Hmo Kassandra Dennis MD Primary Care Provider Reason for Referral (Routine) Status Reason Specialty Diagnoses / Referred By Referred To Procedures Contact Contact New Request Cardiology Diagnoses Palpitations Delroy Sendzohra Procedures Cardiac Monitoring 48 hours MD Cuate [address] [place] [address] Reason for Visit Reason Comments Follow-up Hospital follow up Other (Routine) Status Reason Specialty Diagnoses / Procedures Referred By Jessica molina Referred To Contact Closed Cardiology Diagnoses Tachycardia Philip Barth MD Cai, Qiangjun, MD Procedures Discharge Follow-up: Specialty Provider EMELY GARCIA; [address] [address] [address] Phone: [place] [address] Fax: Encounter Details Date Type Department Care Team Description 04/15/2020 Office Visit [facility] Rad Potst Palpitations (Primary Dx); Cardiology- Maurice Cuello MD Sinus tachycardia; [address] [facility] [address] Elevated blood-pressure reading without diagnosis of hypertension Drive, [address] [place] [phone] Allergies Active Allergy Reactions [...] with No / Unsure 04/15/2020 9:44 AM FRUIT CHECKER someone who was confirmed or 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 documented as of this encounter Last Filed Vital Signs Vital Sign Reading Time Taken Comments Blood Pressure 132/84 04/15/2020 10:48 AM FRUIT CHECKER Pulse 103 04/15/2020 10:48 AM FRUIT CHECKER Temperature - - Respiratory Rate 19 04/15/2020 10:48 AM FRUIT CHECKER Oxygen Saturation 100% 04/15/2020 10:48 AM FRUIT CHECKER Inhaled Oxygen Concentration - - Weight 59.3 kg (130 lb 11.2 oz) 04/15/2020 10:48 AM FRUIT CHECKER Height 157.5 cm (5' 2") 04/15/2020 10:48 AM FRUIT CHECKER Body Mass Index 23.91 04/15/2020 10:48 AM FRUIT CHECKER documented in this encounter Progress Notes Rad Potts MD - 04/15/2020 10:30 AM CST [facility] Cardiology Consult Note Patient: Natanael Dyson [...] N/A 07/21/2019 Surgeon: Shelia Quiñonez MD; Location: [facility] Labor and Delivery OR Location TUBAL LIGATION N/A 07/21/2019 Surgeon: Shelia Quiñonez MD; Location: [facility] Labor and Delivery OR Location [...] file Gets together: Not on file Attends latter-day service: Not on file Active member of [...] in the answers given. We reviewed the [place] [employer] recommendations for reduction of overall [...] us to participate in the care of Natanael Dyson. If you have any questions or concerns please feel free to call our office at [phone]. I would be happy to be of further assistance for Natanael Dyson wellbeing. Simon Potts MD Regrinder, Division of Cardiology [facility] documented in this encounter Plan of Treatment Date Type Specialty Care Team Description 04/18/2020 Office Visit Urology Eder Gilbert MD [address] [place] [address]. [place] [phone] 04/18/2020 Telemedicine Visit Nephrology Lopez Hitchcock M D [address] [place] [phone] 06/02/2020 Office Visit Cardiology Rad Potts MD [address] [place] [address] 08/11/2020 Office Visit Obstetrics & Quiñonez, Munir Johnson Gynecology [address] [facility] [address] [place], [place] [address] Name Type Priority Associated [...] Address T ype Group Dates SAMMY CHRISTIANSON [id number] 2019-Pres Alisson RYAN Medic aid HEALTHCARE - [place]CARE [place] [id number] MANAGED MEDICAID [place], [place] documented as of this encounter
--- OUTSIDE RECORDS SUMMARY | 2020-04-18 11:50 | XMS REPORT | Summary of Care ---
:1995 Author Organization [address] [address] Care Team Providers Name Role Phone Jessica Baker Insurance Hmo Kassandra Dennis MD Primary Care Provider Reason for Visit Reason Comments New Patient (Routine) Status Reason Specialty Diagnoses / Referred By Referred To Procedures Contact Contact Closed URO-UROLOGY / Diagnoses Flank pain Philip Barth MD Alzweri, Laith, MD Urology Procedures Discharge Follow-Up: Specialty Service URO-UROLOGY; [address] [place] [address]. [phone] [place], [place] Phone: [phone] Phone: Fax: Encounter Details Date Type Department Care Team Description 04/18/2020 Office Visit [facility] Urology- Margarita Gilbert MD Calculus of kidney (Primary Dx); [address] Midline low back pain, unspecified chron icity, unspecified whether sciatica present [address] [place] [place] [address] [address] [address] [place] [address] Allergies Active Allergy Reactions Severity Noted Date Comments Latex Rash 04/13/2020 Metoclopramide Hcl Anxiety 07/12/2019 Patient s ays she gets figity, angry and mean documented as of this encounter (statuses as of 04/18/2020) Medications Medication Sig Dispensed Refills Start Date [...] as of this encounter (statuses as of 04/18/2020) Active Problems Problem Noted Date Sinus tachycardia 04/13/2020 Abdominal pain 04/13/2020 Tachycardia 04/12/2020 Anxiety disorder, unspecified type 01/05/2020 Insomnia, unspecified type 01/05/2020 Other depression 08/13/2019 Cervical Papanicolaou smear negative within last 12 mo [facility] 06/19/2019 Overview: 12/2018 NIL pap , see scanned records documented as of this encounter (statuses as of 04/18/2020) Resolved Problems Problem Noted Date Resolved Date [...] as of this encounter (statuses as of 04/18/2020) Immunizations Name Administration Dates Next Due Influenza [...] been in contact with No / Unsure 04/18/2020 8:38 AM TEACHER EMOTIONALLY IMPAIRED someone who was confirmed or 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 documented as of this encounter Last Filed Vital Signs Vital Sign Reading Time Taken Comments Blood Pressure 121/88 04/18/2020 8:47 AM TEACHER EMOTIONALLY IMPAIRED Pulse 88 04/18/2020 8:47 AM TEACHER EMOTIONALLY IMPAIRED Temperature 36 C (96.8 F) 04/18/2020 8:47 AM TEACHER EMOTIONALLY IMPAIRED Respiratory Rate 20 04/18/2020 8:47 AM TEACHER EMOTIONALLY IMPAIRED Oxygen Saturation 98% 04/18/2020 8:47 AM TEACHER EMOTIONALLY IMPAIRED Inhaled Oxygen Concentration - - Weight 61.2 kg (135 lb) 04/18/2020 8:47 AM TEACHER EMOTIONALLY IMPAIRED Height 157.5 cm (5' 2") 04/18/2020 8:47 AM TEACHER EMOTIONALLY IMPAIRED Body Mass Index 24.69 04/18/2020 8:47 AM TEACHER EMOTIONALLY IMPAIRED documented in this encounter Progress Notes Josie Richey FNP - 04/18/2020 8:30 AM CST Visit Type: Clinic Note / History and Physical Referred by: hospital referral Chief Complaint: kidney stones HPI Natanael Harris 25 year old female for evaluation of kidney stones. She has been to the ER multiple times in the last 4- months with back pain and flank pain R>L with no radiation. She was told she has kidney stones. She has never passed or had surgery for stones. She has mid-back pain with bending or lifting heavy objects, say it feels like my kidney is going to explode. She has taken Tylenol #3 and Tramadol to relive the pain. Denies blood in urine, urgency but has pain with urinating. occasionally. Sees manager story and had 24 hour urine which showed low UOP, acidic PH and high calcium. She is taking tamsulosin, potassium citrate, and HCTZ. Family history of kidney stones -mother. Histories Past Medical History: Diagnosis Date Anemia of [...] N/A 07/21/2019 Surgeon: Shelia Quiñonez MD; Location: [facility] Labor and Delivery OR Location TUBAL LIGATION N/A 07/21/2019 Surgeon: Shelia Quiñonez MD; Location: [facility] Labor and Delivery OR Location Family [...] file Gets together: Not on file Attends amish service: Not on file Active member of [...] 1 cat. Review of Systems Constitutional: Negative. Respiratory: Negative. Cardiovascular: Positive for palpitations (has holter monitor). Gastrointestinal: Negative. Genitourinary: Positive for frequency and flank pain. Musculoskeletal: Positive for back pain. Neurological: Negative. Psychiatric/Behavioral: Negative. Physical Exam Constitutional: Appearance: Normal appearance. She is normal weight. Genitourinary: Comments: No CVAT Skin: General: Skin is warm and dry. Neurological: General: No focal deficit present. Mental Status: She is alert and oriented to person, place, and time. Mental status is at baseline. Psychiatric: Mood and Affect: Mood normal. Behavior: Behavior normal. Thought Content: Thought content normal. Judgment: Judgment normal. BP 121/88 (BP Location: Right arm, Patient Position: Sitting, BP CUFF SIZE: Adult Large) | Pulse 88 | Temp 36 C (96.8 F) (Temporal Artery) | Resp 20 | Ht 5' 2" (1.575 m) | Wt 135 lb (61.2 kg)| SpO2 98% | BMI 24.69 kg/m Laboratory Results for NATANAEL HARRIS ( ) as of 04/18/2020 09:47 Ref. Range 04/18/2020 08:51 POCT PH U Latest Ref Range: 5 - 8 mg/dl 6.0 POCT U SP GRAV Latest Ref Range: 1.005 - 1.025 mg/dl 1.015 POCT U GLU Latest Ref Range: Negative - Negative Negative POCT U BLD Latest Ref Range: Negative - Negative Negative POCT U KETONE Latest Ref Range: Negative - Negative Negative POCT U PROT Latest Ref Range: Negative - Negative Negative POCT U UROBILI Latest Ref Range: 0.2 - 1 mg/dl 0.2 POCT U BILI Latest Ref Range: Negative - Negative Negative POCT U NIT Latest Ref Range: Negative - Negative Negative POCT U LEUK EST Latest Ref Range: Negative - Negative Negative POCT U COLOR Unknown yellow POCT U APPEAR Unknown clear Radiology 02/28/20 CT abdomen/pelvis without contrast FINDINGS: LOWER THORAX: Dependent atelectasis in the lingula and middle lobe.. LIVER: No focal hepatic lesions. Normal liver contour. GALLBLADDER AND BILIARY TREE: No biliary ductal dilation. No gallbladder wall thickening. SPLEEN: No splenomegaly. PANCREAS: No contour deforming masses. ADRENAL GLANDS: No adrenal nodules. KIDNEYS: No hydronephrosis, or masses. Multiple punctate nonobstructing bilateral nephrolithiasis, measuring up to 3 mm at the right midpole (2:45). PERITONEUM AND RETROPERITONEUM: No free air or fluid. LYMPH NODES: No lymphadenopathy. GI TRACT: No dilation or wall thickening. Normal appendix. PELVIS/BLADDER: The urinary bladder is decompressed. No radiopaque bladder stone. The uterus and bilateral ovaries are unremarkable. VESSELS: Unremarkable within the limitation of noncontrast study. BONES AND SOFT TISSUES: No suspicious lytic or sclerotic bony lesions. IMPRESSION Bilateral nonobstructing nephrolithiasis measuring up to 3 mm on the right. No hydronephrosis. Preliminary Report Dictated by Resident: Baylee Marquez Procedure Note None Assessment/Plan Natanael Harris 25 year old female with Bilateral kidney stones- nonobstructing, mid-back pain Continue current medications per nephrology Follow up with PCP for referral for back pain - pain management/Orthopedic surgery/neurology Stone diet given to patient Increase fluids to 3 L daily RTC PRN Surgical Intervention Not applicable. This visit did not involve counseling and coordination that comprised more than 50% of the visit time. The patient was seen and discussed with Dr. Gilbert. Josie Richey NP-C Serena Nieves RN - 04/18/2020 8:30 AM CSTNatanael Harris is a 25 year old female comes to clinic independent in ambulation for Kidney stones. Pt comes alone . Pt in NAD w/ pain reported 0/10. Pt preferred language is Chadian. Pt. denies fall in last 12 months. Allergies and medications reviewed and updated. HER EMOTIONALLY IMPAIRED documented in this encounter Plan of Treatment Date Type Specialty Care Team Description 04/18/2020 Telemedicine Visit Nephrology Lopez Hitchcock M D [address] [phone] 06/02/2020 Office Visit Cardiology Rad Potts MD [address] [place] [address] 08/11/2020 Office Visit Obstetrics & Shelia Quiñonez M D Gynecology [address] [facility] [place], [place] [address] Health Maintenance Due Date [...] Procedure Name Priority Date/Time Associated Comments Diagnosis POCT URINALYSIS AUTO Routine 04/18/2020 8:51 AM Calculus of k idney Results for this TEACHER EMOTIONALLY IMPAIRED procedure are i n the results section. documented in this encounter Results POCT URINALYSIS, INSTRUMENT (04/18/2020 8:51 AM TEACHER EMOTIONALLY IMPAIRED) Pathologist Sig nature POCT U SP GRAV 1.015 1.005 - 1.025 mg/dl POCT PH U 6.0 5 - 8 mg/dl POCT U LEUK EST Negative Negative - Negative POCT U NIT Negative Negative - Negative POCT U PROT Negative Negative - Negative POCT U GLU Negative Negative - Negative POCT U KETONE Negative Negative - Negative POCT U UROBILI 0.2 0.2 - 1 mg/dl POCT U BILI Negative Negative - Negative POCT U BLD Negative Negative - Negative POCT U COLOR yellow POCT U APPEAR clear Specimen Urine - URINE, CLEAN CATCH documented in this encounter Visit Diagnoses Diagnosis Calculus of kidney - Primary Midline low back pain, unspecified chron icity, unspecified whether sciatica present documented in this encounter Insurance Payer Benefit Plan / Subscriber ID Effective Phone Address T ype Group Dates SAMMY CHRISTIANSON [id number] 2019-Pres [address]OX Medic aid HEALTHCARE [place]ARE [place] [id number] MANAGED MEDICAID [place], [place] documented as of this encounter
--- OUTSIDE RECORDS SUMMARY | 2020-04-18 11:50 | XMS REPORT | Summary of Care ---
:1995 Author Organization [address] [address] Care Team Providers Name Role Phone Jessica Baker Insurance Hmo Kassandra Dennis MD Primary Care Provider Reason for Visit Reason Comments New Patient (Routine) Status Reason Specialty Diagnoses / Referred By Referred To Procedures Contact Contact Closed URO-UROLOGY / Diagnoses Flank pain Philip Barth MD Alzweri, Laith, MD Urology Procedures Discharge Follow-Up: Specialty Service URO-UROLOGY; [address] [place] [address]. [phone] [place], [place] Phone: [phone] Phone: Fax: Encounter Details Date Type Department Care Team Description 04/18/2020 Office Visit [facility] Urology- Margarita Gilbert MD Calculus of kidney (Primary Dx); [address] Midline low back pain, unspecified chron icity, unspecified whether sciatica present [address] [place] [address] [address] [address] [place] [address] Allergies Active Allergy Reactions Severity [...] with No / Unsure 04/18/2020 8:38 AM INTENSIVE CARE SPECIALIST someone who was confirmed or 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 documented as of this encounter Last Filed Vital Signs Vital Sign Reading Time Taken Comments Blood Pressure 121/88 04/18/2020 8:47 AM INTENSIVE CARE SPECIALIST Pulse 88 04/18/2020 8:47 AM INTENSIVE CARE SPECIALIST Temperature 36 C (96.8 F) 04/18/2020 8:47 AM INTENSIVE CARE SPECIALIST Respiratory Rate 20 04/18/2020 8:47 AM INTENSIVE CARE SPECIALIST Oxygen Saturation 98% 04/18/2020 8:47 AM INTENSIVE CARE SPECIALIST Inhaled Oxygen Concentration - - Weight 61.2 kg (135 lb) 04/18/2020 8:47 AM INTENSIVE CARE SPECIALIST Height 157.5 cm (5' 2") 04/18/2020 8:47 AM INTENSIVE CARE SPECIALIST Body Mass Index 24.69 04/18/2020 8:47 AM INTENSIVE CARE SPECIALIST documented in this encounter Progress Notes Josie [...] but has pain with urinating. occasionally. Sees timber management assistant and had 24 hour urine which showed [...] N/A 07/21/2019 Surgeon: Shelia Quiñonez MD; Location: [facility] Labor and Delivery OR Location TUBAL LIGATION N/A 07/21/2019 Surgeon: Shelia Quiñonez MD; Location: [facility] Labor and Delivery OR Location Family History [...] file Gets together: Not on file Attends pentecostal service: Not on file Active member of [...] pain reported 0/10. Pt preferred language is Bangladeshi. Pt. denies fall in last 12 months. Allergies and medications reviewed and updated. NSIVE CARE SPECIALIST documented in this encounter Plan of Treatment Date Type Specialty Care Team Description 04/18/2020 Telemedicine Visit Nephrology Lopez Hitchcock M D [address] [phone] 06/02/2020 Office Visit Cardiology Rad Potts MD [address] [place] [address] 08/11/2020 Office Visit Obstetrics & Shelia Quiñonez M D Gynecology [address] [facility] [address] [place], [place] [address] Health Maintenance Due Date [...] Calculus of k idney Results for this INTENSIVE CARE SPECIALIST procedure are i n the results section. documented in this encounter Results POCT URINALYSIS, INSTRUMENT (04/18/2020 8:51 AM INTENSIVE CARE SPECIALIST) Pathologist Sig nature POCT U SP GRAV [...] Address T ype Group Dates SAMMY CHRISTIANSON [id number] 2019-Pres [address] BOX Medic aid HEALTHCARE [place]ARE [place] [id number] MANAGED MEDICAID [place], [place] documented as of this encounter
[2020-04-18] MEDS ORDERED: KETOROLAC 30 MG/ML INJ ONE (12:09)
--- NOTE | 2020-04-18 12:19 | RAD REPORT ---
EXAM DESCRIPTION: US - Abdomen Exam Limited - 04/18/2020 11:53 am CLINICAL HISTORY: ABD PAIN COMPARISON: Stone Protocol dated 04/18/2020 FINDINGS: The gallbladder demonstrates no gallstones. No pericholecystic fluid or gallbladder wall t hickening. The common bile duct is normal measuring 2 mm. The liver demonstrates no findings of intrahepatic biliary dilatation. IMPRESSION: Unremarkable examination.
[2020-04-18 12:49] LABS: Urine Specific Gravity 1.015 (1.005-1.030)
--- NOTE | 2020-04-18 14:10 | EDPHYS ---
Physician Documentation [facility] Name: Natanael Dyson Age: 25 yrs Sex: Female : 1995 Arrival Date: 04/18/2020 Time: 10:04 Bed 14 Private MD: ED Physician Harjit Samson HPI: 04/18 11:22 This 25 yrs old Female presents to ER via Ambulatory with complaints of kb Abdominal Pain, Back Pain. 11:22 The patient presents with abdominal pain right lower quadrant. Onset: The kb symptoms/episode began/occurred 2 day(s) ago. The symptoms do not radiate. Associated signs and symptoms: Pertinent positives: nausea and vomiting, fever. The symptoms are described as constant. Modifying factors: The symptoms are alleviated by nothing, the symptoms are aggravated by nothing. Severity of pain: At its worst the pain was moderate in the emergency department the pain is unchanged. The patient has not experienced similar symptoms in the past. The patient has not recently seen a physician. 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 ROS: 11:19 Constitutional: Negative for fever, chills, and weight loss, Cardiovascular: Negative kb for chest pain, palpitations, and edema, Respiratory: Negative for shortness of breath, cough, wheezing, and pleuritic chest pain, Back: Negative for injury and pain, MS/Extremity: Negative for injury and deformity, Skin: Negative for injury, rash, and discoloration, Neuro: Negative for headache, weakness, numbness, tingling, and seizure. 11:19 Abdomen/GI: Positive for abdominal pain, nausea and vomiting, Negative for diarrhea, constipation. Exam: 11:19 Constitutional: This is a well developed, well nourished patient who is awake, alert, kb and in no acute distress. Head/Face: Normocephalic, atraumatic. Chest/axilla: Normal chest wall appearance and motion. Nontender with no deformity. No lesions are appreciated. Cardiovascular: Regular rate and rhythm with a normal S1 and S2. No gallops, murmurs, or rubs. Normal PMI, no JVD. No pulse deficits. Respiratory: Lungs have equal breath sounds bilaterally, clear to auscultation and percussion. No rales, rhonchi or wheezes noted. No increased work of breathing, no retractions or nasal flaring. Skin: Warm, dry with normal turgor. Normal color with no rashes, no lesions, and no evidence of cellulitis. MS/ Extremity: Pulses equal, no cyanosis. Neurovascular intact. Full, normal range of motion. Neuro: Awake and alert, GCS 15, oriented to person, place, time, and situation. Cranial nerves II-XII grossly intact. Motor strength 5/5 in all extremities. Sensory grossly intact. Cerebellar exam normal. Normal gait. 11:19 Abdomen/GI: Inspection: abdomen appears normal, Bowel sounds: normal, in all quadrants, Palpation: mild abdominal tenderness, in the right upper quadrant, moderate abdominal tenderness, in the right lower quadrant. Vital Signs: 10:24 Temp 98.0(TE); Weight 58.97 kg; Height 5 ft. 2 in. (157.48 cm); Pain 10/10; iw 10:30 BP 120 / 70; Pulse 97; Resp 18; Pulse Ox 100% on R/A; tw2 11:22 BP 114 / 81; Pulse 92; Resp 17; Pulse Ox 100% on R/A; tw2 12:06 BP 112 / 78; Pulse 89; Resp 18; Pulse Ox 99% on R/A; tw2 10:24 Body Mass Index 23.78 (58.97 kg, 157.48 cm) iw MDM: 10:09 Patient medically screened. kb 11:18 Data reviewed: vital signs, nurses notes. Data interpreted: Pulse oximetry: on room air kb is 100 %. Interpretation: normal. Counseling: I had a detailed discussion with the patient and/or guardian regarding: the historical points, exam findings, and any diagnostic results supporting the discharge/admit diagnosis, lab results, radiology results, the need for outpatient follow up, a family practitioner, to return to the emergency department if symptoms worsen or persist or if there are any questions or concerns that arise at home. 04/18 10:17 Order name: Basic Metabolic Panel; Complete Time: 11:18 kb 04/18 10:17 Order name: CBC with Diff kb 04/18 10:17 Order name: Hepatic Function; Complete Time: 11:18 kb 04/18 10:17 Order name: Lipase; Complete Time: 11:18 kb 04/18 10:17 Order name: CT Stone Protocol; Complete Time: 11:06 kb 04/18 11:05 Order name: CBC Smear Scan EDMS 04/18 11:22 Order name: US Abdomen Limited kb 04/18 10:17 Order name: IV Saline Lock; Complete Time: 10:48 kb 04/18 10:17 Order name: Labs collected and sent; Complete Time: 10:48 kb 04/18 10:17 Order name: Urine Test (obtain specimen); Complete Time: 11:53 kb 04/18 10:17 Order name: Urine Dipstick-Ancillary (obtain specimen); Complete Time: 11:54 kb Administered Medications: 10:39 Drug: Phenergan 6.25 mg Route: IVP; Site: left hand; tw2 11:21 Follow up: Response: No adverse reaction; Nausea unchanged; Nausea unchanged, provider tw2 notified. 10:42 Drug: NS 0.9% 1000 ml Route: IV; Rate: 1000 ml; Site: left hand; tw2 12:06 Follow up: Response: No adverse reaction; IV Status: Order to discontinue infusion; IV tw2 Intake: 800ml 10:42 Drug: morphine 4 mg {Note: RASS 0.} Route: IVP; Site: left hand; tw2 11:21 Follow up: Response: No adverse reaction; Pain is decreased; RASS: Alert and Calm (0) tw2 11:21 Drug: Phenergan 6.25 mg Route: IVP; Site: left hand; tw2 11:57 Follow up: Response: No adverse reaction tw2 11:57 Drug: TORadol 30 mg Route: IVP; Site: left hand; tw2 12:06 Follow up: Response: No adverse reaction tw2 Disposition: 17:43 Co-signature as Attending Physician, Harjit Samson MD. rn Disposition: 04/18/20 11:53 Discharged to Home. Impression: Generalized abdominal pain - right sided, Nausea and vomiting. - Condition is Stable. - Discharge Instructions: Nausea and Vomiting, Adult, [id number], Abdominal Pain, Adult, Qizz-me-Bmfl. - Prescriptions for Bentyl 20 mg Oral Tablet - take 1 tablet by ORAL route every 6 hours As needed; 20 tablet. Diclofenac Sodium 75 mg Oral Tablet, Delayed Release (E.C.) - take 1 tablet by ORAL route 2 times per day As needed; 30 tablet. promethazine 25 mg Oral Tablet - take 1 tablet by ORAL route every 8 hours As needed; 20 tablet. - Medication Reconciliation Form, Thank You Letter, Antibiotic Education, Prescription Opioid Use form. - Follow up: Private Physician; When: 2 - 3 days; Reason: Recheck today's complaints, Continuance of care, Re-evaluation by your physician. Follow up: Emergency Department; When: As needed; Reason: Worsening of condition. Signatures: Dispatcher [employer] [facility] Bobbi Vang, LINER REROLL TENDER-C LINER REROLL TENDER-Vania Smith, ROSEY RN Harjit Mohamud MD MD rn Wise, Tara, RN RN tw2 Corrections: (The following items were deleted from the chart) 11:34 11:33 Abdomen Exam Limited ordered. [facility] 11:36 11:33 Abdomen Exam Limited ordered. [facility] 12:07 11:53 04/18/2020 11:53 Discharged to Home. Impression: Generalized abdominal pain - tw2 right sided; Nausea and vomiting. Condition is Stable. Forms are Medication Reconciliation Form, Thank You Letter, Antibiotic Education, Prescription Opioid Use. Follow up: Private Physician; When: 2 - 3 days; Reason: Recheck today's complaints, Continuance of care, Re-evaluation by your physician. Follow up: Emergency Department; When: As needed; Reason: Worsening of condition. kb
--- NOTE | 2020-04-18 14:10 | ER ---
Nurse's Notes [facility] Name: Natanael Dyson Age: 25 yrs Sex: Female : 1995 Arrival Date: 04/18/2020 Time: 10:04 Bed 14 Private MD: Diagnosis: Generalized abdominal pain-right sided;Nausea and vomiting Presentation: 04/18 10:24 Chief complaint: Patient states: RLQ pain X 2 days , fever 101-102, no fever today, iw +vomiting. Coronavirus screen: At this time, the client does not indicate any symptoms associated with coronavirus-19. Ebola Screen: Patient negative for fever greater than or equal to 101.5 degrees Fahrenheit, and additional compatible Ebola Virus Disease symptoms Patient denies exposure to infectious person. Patient denies travel to an Ebola-affected area in the 21 days before illness onset. No symptoms or risks identified at this time. Initial Sepsis Screen: Does the patient meet any 2 criteria? No. Patient's initial sepsis screen is negative. Does the patient have a suspected source of infection? No. Patient's initial sepsis screen is negative. Risk Assessment: Do you want to hurt yourself or someone else? Patient reports no desire to harm self or others. 10:24 Method Of Arrival: Ambulatory iw 10:24 Acuity: THIERNO 3 iw 11:00 Onset of symptoms was April 16, 2020. 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 Screenin:58 Abuse screen: Denies threats or abuse. Nutritional screening: No deficits noted. tw2 Tuberculosis screening: No symptoms or risk factors identified. Fall Risk None identified. Assessment: 10:39 General: Appears in no apparent distress. uncomfortable, slender, Behavior is tw2 cooperative, appropriate for age. Pain: Complains of pain in abdomen Pain radiates to back. Neuro: Level of Consciousness is awake, alert, obeys commands, Oriented to person, place, time, situation. Cardiovascular: Heart tones S1 S2 Patient's skin is warm and dry. Respiratory: Airway is patent Respiratory effort is even, unlabored, Respiratory pattern is regular, symmetrical, Breath sounds are clear bilaterally. GI: Abdomen is flat, Bowel sounds present X 4 quads. Abd is soft and non tender X 4 quads. Reports lower abdominal pain, upper abdominal pain, nausea, vomiting. : No signs and/or symptoms were reported regarding the genitourinary system. EENT: No signs and/or symptoms were reported regarding the EENT system. Derm: No signs and/or symptoms reported regarding the dermatologic system. Musculoskeletal: Range of motion: intact in all extremities. 11:22 Reassessment: Patient appears in no apparent distress at this time. Patient and/or tw2 family updated on plan of care and expected duration. Pain level reassessed. Patient is alert, oriented x 3, equal unlabored respirations, skin warm/dry/pink. pt states "my pain is better, but i am still so nauseous", pt dry heaving before entry into exam room and provider notified of pts condition. 12:06 Reassessment: Patient appears in no apparent distress at this time. Patient and/or tw2 family updated on plan of care and expected duration. Pain level reassessed. Patient is alert, oriented x 3, equal unlabored respirations, skin warm/dry/pink. Vital Signs: 10:24 Temp 98.0(TE); Weight 58.97 kg; Height 5 ft. 2 in. (157.48 cm); Pain 10/10; iw 10:30 BP 120 / 70; Pulse 97; Resp 18; Pulse Ox 100% on R/A; tw2 11:22 BP 114 / 81; Pulse 92; Resp 17; Pulse Ox 100% on R/A; tw2 12:06 BP 112 / 78; Pulse 89; Resp 18; Pulse Ox 99% on R/A; tw2 10:24 Body Mass Index 23.78 (58.97 kg, 157.48 cm) iw ED Course: 10:04 Patient arrived in ED. ag5 10:06 Bob[facility]C [facility] kb 10:06 Harjit Samson MD is Attending Physician. kb 10:10 Bed in low position. Call light in reach. tw2 10:21 Amber Mitchell RN is Primary Nurse. tw2 10:25 Triage completed. iw 10:27 Arm band placed on. iw 10:30 Pulse ox on. NIBP on. tw2 10:38 Missed attempt(s): 20 gauge in right forearm. blood collected by Maribel GRIGSBY. Bleeding tw2 controlled, band aid applied, catheter tip intact. 10:40 Inserted saline lock: 22 gauge in left hand, using aseptic technique. tw2 10:51 CT Stone Protocol In Process Unspecified. EDMS 10:52 CT completed. Patient tolerated procedure well. Patient moved back from CT. sj 12:07 No provider procedures requiring assistance completed. IV discontinued, intact, tw2 bleeding controlled, No redness/swelling at site. Pressure dressing applied. 12:13 US Abdomen Limited In Process Unspecified. EDMS Administered Medications: 10:39 Drug: Phenergan 6.25 mg Route: IVP; Site: left hand; tw2 11:21 Follow up: Response: No adverse reaction; Nausea unchanged; Nausea unchanged, provider tw2 notified. 10:42 Drug: NS 0.9% 1000 ml Route: IV; Rate: 1000 ml; Site: left hand; tw2 12:06 Follow up: Response: No adverse reaction; IV Status: Order to discontinue infusion; IV tw2 Intake: 800ml 10:42 Drug: morphine 4 mg {Note: RASS 0.} Route: IVP; Site: left hand; tw2 11:21 Follow up: Response: No adverse reaction; Pain is decreased; RASS: Alert and Calm (0) tw2 11:21 Drug: Phenergan 6.25 mg Route: IVP; Site: left hand; tw2 11:57 Follow up: Response: No adverse reaction tw2 11:57 Drug: TORadol 30 mg Route: IVP; Site: left hand; tw2 12:06 Follow up: Response: No adverse reaction tw2 Intake: 12:06 IV: 800ml; Total: 800ml. tw2 Outcome: 11:53 Discharge ordered by MD. jain 12:07 Discharged to home ambulatory. tw2 12:07 Condition: stable 12:07 Discharge instructions given to patient, Instructed on discharge instructions, follow up and referral plans. no drinking with medication, no driving heavy equipment, medication usage, Demonstrated understanding of instructions, follow-up care, medications, Prescriptions given X 3. 12:07 Patient left the ED. tw2 Signatures: Dispatcher [employer] EDMS Bobbi Vang FNP-C PANTOMIMIST-Carolyne Ga Irene, RN RN iw Amber Mitchell RN RN tw2 Ethan Menjivar ag5
[2020-04-21 20:03] VITALS: TEMP 98
[2020-04-21 20:07] VITALS: BP 112/78; O2SAT 99
== END 2020-04-18 12:07 | disposition home or self-care (01) ==
LOC: ER 10:02
DX: R11.2 Nausea with vomiting, unspecified (principal); Z87.442 Personal history of urinary calculi; Z88.8 Allergy status to other drugs, medicaments and biological substances
CPT/HCPCS: 96361; 85025; 80048; 36415; 81025; 80076; 83690; 76377; 74176; 76705; 96375; 96374; 99284; J2550 ×2; J7030

== ENCOUNTER 2020-04-21 | Emergency (ER) | payer MEDICAID ==
--- NOTE | 2020-04-21 14:46 | ER ---
Nurse's Notes [facility] Name: Natanael Dyson Age: 25 yrs Sex: Female : 1995 Arrival Date: 04/21/2020 Time: 14:14 Bed Waiting [facility] MD: Diagnosis: ED Course: 04/21 14:14 Patient arrived in ED. rg4 14:46 Miquel Rios MD is Attending Physician. aa5 Administered Medications: No medications were administered Outcome: 14:46 Patient left the ED. aa5 14:46 Eloped from waiting room, Time discovered patient gone: April 21, 2020 at 14:30 aa5 Signatures: Jaycee Brewer RN RN aa5 Darlyn Duque rg4
--- OUTSIDE RECORDS SUMMARY | 2020-04-21 14:50 | XMS REPORT | Continuity of Care Document ---
:1995 Author Organization [facility] t Address [address] [place] [address] Care Team Providers Name Role Phone Kassandra Dennis MD Attending Clinician Vladimir FELIX Attending Clinician Problems This patient has no known problems. Allergies, Adverse Reactions, Alerts This patient has no known allergies or adverse reactions. Medications This patient has no known medications. Procedures This patient has no known procedures. Encounters Start End Encounter Admission Attending Care Care Encounter Source Date/Time Date/Time Type Type Clinicians Facility Department ID 2020-04-19 2020-04-19 Patient VICK Dennis [id number] 00:00:00 00:00:00 Secure [facility] [id number] [place] [id number] Professio [phone] nal 0[address] 2020-04-18 2020-04-18 Office VICK Gilbert [id number] 08:38:48 09:23:54 Visit Eder [place] [id number] [place] [id number] Professio [phone] nal 204 Building Results This patient has no known results.
--- OUTSIDE RECORDS SUMMARY | 2020-04-21 15:01 | XMS REPORT | Summary of Care ---
:1995 Author Organization [facility] Address [address] [place] [address] Care Team Providers Name Role Phone Jessica Baker Insurance Hmo Kassandra Dennis MD Primary Care Provider Encounter Details Date Type Department Care Team Description 04/19/[address] [facility]to Dennis, [facility] Maurice FELIX [address] [place] [address] Dr [address] [place] [address] [place] [address] [place] [phone] Allergies Active Allergy Reactions Severity Noted Date Comments Latex Rash 04/13/2020 Metoclopramide Hcl Anxiety 07/12/2019 Patient s ays she gets figity, angry and mean documented as of this encounter (statuses as of 04/20/2020) Medications Medication Sig Dispensed Refills Start Date [...] as of this encounter (statuses as of 04/20/2020) Active Problems Problem Noted Date Sinus tachycardia 04/13/2020 Abdominal pain 04/13/2020 Tachycardia 04/12/2020 Anxiety disorder, unspecified type 01/05/2020 Insomnia, unspecified type 01/05/2020 Other depression 08/13/2019 Cervical Papanicolaou smear negative within last 12 mo [facility] 06/19/2019 Overview: 12/2018 NIL pap , see scanned records documented as of this encounter (statuses as of 04/20/2020) Resolved Problems Problem Noted Date Resolved Date [...] as of this encounter (statuses as of 04/20/2020) Immunizations Name Administration Dates Next Due Influenza [...] with No / Unsure 04/18/2020 8:38 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 documented as of this encounter Last Filed Vital Signs Not on filedocumented in this encounter Miscellaneous Notes Telephone Encounter - Paz Dennis MD - 04/19/2020 6:25 PM CSTOffer telehealth visit for referral. documented in this encounter Plan of Treatment Date Type Specialty Care Team Description 04/25/2020 Telemedicine Visit Family Medicine Paz Dennis MD [address] [place] [phone] 06/02/2020 Office Visit Cardiology Rad Potts MD [address] [place] [address] [address] [place] [phone] 08/11/2020 Office Visit Obstetrics & Gynecology Young Quiñonez MD [address] [place] [address] [address] [place], [place] [address] Health Maintenance Due Date [...] Address T ype Group Dates SAMMY CHRISTIANSON [id number] 2019-Pres [address] Medic aid [facility] [place] [id number] MANAGED MEDICAID [place], [place] documented as of this encounter
--- OUTSIDE RECORDS SUMMARY | 2020-04-21 15:01 | XMS REPORT | Summary of Care ---
:1995 Author Organization [address] [address] Care Team Providers Name Role Phone Jessica Baker Insurance Hmo Kassandra Dennis MD Primary Care Provider Reason for Visit Reason Comments New Patient (Routine) Status Reason Specialty Diagnoses / Referred By Referred To Procedures Contact Contact Closed URO-UROLOGY / Diagnoses Flank pain Philip Barth MD Alzweri, Laith, MD Urology Procedures Discharge Follow-Up: Specialty Service URO-UROLOGY; [address] [place] [address]. [phone] [place], [place] Phone: [phone] Phone: Fax: Encounter Details Date Type Department Care Team Description 04/18/2020 Office Visit [facility] Urology- Margarita Gilbert MD Calculus of kidney (Primary Dx); [address] Midline low back pain, unspecified chron icity, unspecified whether sciatica present [address] [place] [place] [address] [address] [address] [place] [address] Allergies Active Allergy Reactions Severity [...] with No / Unsure 04/18/2020 8:38 AM DIRECTOR INPATIENT HEADACHE PROGRAM someone who was confirmed or 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 documented as of this encounter Last Filed Vital Signs Vital Sign Reading Time Taken Comments Blood Pressure 121/88 04/18/2020 8:47 AM DIRECTOR INPATIENT HEADACHE PROGRAM Pulse 88 04/18/2020 8:47 AM DIRECTOR INPATIENT HEADACHE PROGRAM Temperature 36 C (96.8 F) 04/18/2020 8:47 AM DIRECTOR INPATIENT HEADACHE PROGRAM Respiratory Rate 20 04/18/2020 8:47 AM DIRECTOR INPATIENT HEADACHE PROGRAM Oxygen Saturation 98% 04/18/2020 8:47 AM DIRECTOR INPATIENT HEADACHE PROGRAM Inhaled Oxygen Concentration - - Weight 61.2 kg (135 lb) 04/18/2020 8:47 AM DIRECTOR INPATIENT HEADACHE PROGRAM Height 157.5 cm (5' 2") 04/18/2020 8:47 AM DIRECTOR INPATIENT HEADACHE PROGRAM Body Mass Index 24.69 04/18/2020 8:47 AM DIRECTOR INPATIENT HEADACHE PROGRAM documented in this encounter Progress Notes Eder Gilbert MD - 04/18/2020 8:30 AM CSTI saw and examined the patient on 04/18/2020 and agree with the MLP's note as written by ELADIO Richey. I actively participated in the decision-making process. Please see the MLP's note for additional details. Josie Ordonez FNP - 04/18/2020 8:30 AM CST Visit [...] but has pain with urinating. occasionally. 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 Gilbert. Josie Richey NP-C erena Bolanos RN - 04/18/2020 8:30 AM CSTNatanael Harris is a 25 year old female comes to clinic independent in ambulation for Kidney stones. Pt comes alone . Pt in NAD w/ pain reported 0/10. Pt preferred language is Tuvaluan. Pt. denies fall in last 12 months. Allergies and medications reviewed and updated. CTOR INPATIENT HEADACHE PROGRAM documented in this encounter Plan of Treatment Date Type Specialty Care Team Description 06/02/2020 Office Visit Cardiology Rad Potts MD [address] [place] [address] [address] [place] [phone] 08/11/2020 Office Visit Obstetrics & Gynecology Young Quiñonez MD [address] [place] [address] [address] [place] [phone] Health Maintenance Due Date Last Done Comments [...] Calculus of k idney Results for this DIRECTOR INPATIENT HEADACHE PROGRAM procedure are i n the results section. documented in this encounter Results POCT URINALYSIS, INSTRUMENT (04/18/2020 8:51 AM DIRECTOR INPATIENT HEADACHE PROGRAM) Pathologist Sig nature POCT U SP GRAV [...] Address T ype Group Dates SAMMY CHRISTIANSON [id number] 2019-Pres [address] Medic aid [facility]CARE [place]ARE [place] [id number] MANAGED MEDICAID [place], [place] documented as of this encounter
== END 2020-04-21 14:46 | disposition left against medical advice (07) ==
DX: Z02.9 Encounter for administrative examinations, unspecified (principal)

== ENCOUNTER 2020-04-28 16:57 | Emergency (ER) | payer SELFPAY ==
--- OUTSIDE RECORDS SUMMARY | 2020-04-28 16:59 | XMS REPORT | Continuity of Care Document ---
:1995 Author Organization [facility] t Address [address] [place] [address] [address] [place] [address] Care Team Providers Name Role Phone Delroy FELIX, K.HPilar Attending Clinician Coretta FELIX Attending Clinician Problems This patient has no known problems. Allergies, Adverse Reactions, Alerts This patient has no known allergies or adverse reactions. Medications This patient has no known medications. Procedures This patient has no known procedures. Encounters Start End Encounter Admission Attending Care Care Encounter Source Date/Time Date/Time Type Type Clinicians Facility Department ID 2020-04-27 2020-04-27 Telephone VICK Potts [id number] 00:00:00 00:00:00 Rad Richards [id number] [place] [id number] Professio [phone] [address] 2020-04-27 2020-04-27 Refill Delroy [facility] [id number] 00:00:00 00:00:00 Rad [place] [id number] [place] [id number] Professio [phone] [address] 2020-04-26 2020-04-26 Patient Lopez Hitchcock [facility] [id number] 00:00:00 00:00:00 Secure [facility] [id number] [facility] [phone] [facility] 2020-04-19 2020-04-19 Patient VICK Potts [id number] 00:00:00 00:00:00 Secure Msg Rad Richards [id number] [place] [id number] [facility] [phone] [facility] 2020-04-15 2020-04-15 [facility] [id number] 00:00:00 00:00:00 Secure Msg [facility] [id number] [facility] [id number] [phone] Results This patient has no known results.
--- OUTSIDE RECORDS SUMMARY | 2020-04-28 17:09 | XMS REPORT | Summary of Care ---
:1995 Author Organization [facility] - [facility] [place] Address [address] [place] [address] Care Team Providers Name Role Phone Jessica Baker Insurance [employer] Kassandra Dennis MD Primary Care Provider Reason for Referral MRI/CAT Scan (Routine) Status Reason Specialty Diagnoses / Referred By Referred To Procedures Contact Contact New Request Diagnostic Diagnoses Right lower quadrant abdominal pain Zion Bishop, Radiology Procedures CT ABDOMEN PELVIS W CONTRAST DO [address] [place] [address]. RT [address] [place] [address] Reason for Visit Reason Comments Abdominal Pain RLQ Fever Auth/Cert Status Reason Specialty Diagnoses / Referred By Referred To Procedures Contact Contact Emergency Medicine [facility] Em ergency Dept [address] [place] [address] Fax: Encounter Details Date Type Department Care Team Description 04/21/2020 Emergency [facility]-Emergency Zion Bishop DO Right lower quadrant abdominal pain (Gabriela sabi Dx); Department [address] [place] [address] Renal colic [address] [facility] [address] [place] [address] [place] [address] [phone] Allergies Active Allergy Reactions Severity Noted Date Comments Latex Rash 04/13/2020 Metoclopramide Hcl Anxiety 07/12/2019 Patient s ays she gets figity, angry and mean documented as of this encounter (statuses as of 04/21/2020) Medications Medication Sig Dispensed Refills Start Date [...] meals. FLUoxetine 20 mg Take 1 capsule 30 capsule 3 03/17/2020 Active capsuleIndications: by mouth daily. Depression, unspecified depression type, depression metoprolol succinate Take 0.5 tablets 15 tablet 0 04/14/2020 0 05/14/2020 Active XL 25 mg 24 hr by mouth daily tabletIndications: for 30 days. Tachycardia aspirin (ADULT LOW Take 1 tablet by 7 tablet 0 04/15/202003/2020 Active DOSE ASPIRIN) 81 mg mouth daily for EC tabletIndications: 7 days. Take Phlebitis, with food. superficial cephALEXin 250 mg Take 1 capsule 21 capsule 0 04/15/202004/22 Active capsuleIndications: by mouth every 8 Phlebitis, (eight) hours superficial for 7 days. ketorolac 10 mg Take 1 tablet by 15 tablet 0 04/21/2020 Active tabletIndications: mouth every 6 Right lower quadrant (six) hours as abdominal pain, Renal needed for Pain colic (scale 7-10). ondansetron 4 mg Take 1 tablet by 20 tablet 0 04/21/2020 Active disintegrating mouth every 8 tabletIndications: (eight) hours as Right lower quadrant needed for abdominal pain, Renal Nausea and colic Vomiting (N/V). documented as of this encounter (statuses as of 04/21/2020) Active Problems Problem Noted Date Sinus tachycardia 04/13/2020 Abdominal pain 04/13/2020 Tachycardia 04/12/2020 Anxiety disorder, unspecified type 01/05/2020 Insomnia, unspecified type 01/05/2020 Other depression 08/13/2019 Cervical Papanicolaou smear negative within last 12 mo [facility] 06/19/2019 Overview: 12/2018 NIL pap , see scanned records documented as of this encounter (statuses as of 04/21/2020) Resolved Problems Problem Noted Date Resolved Date [...] as of this encounter (statuses as of 04/21/2020) Immunizations Name Administration Dates Next Due Influenza [...] been in contact with No / Unsure 04/21/2020 3:13 PM PALLIATIVE CARE NURSE PRACTITIONER someone who was confirmed or 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 documented as of this encounter Last Filed Vital Signs Vital Sign Reading Time Taken Comments Blood Pressure 123/80 04/21/2020 5:05 PM PALLIATIVE CARE NURSE PRACTITIONER Pulse 91 04/21/2020 5:05 PM PALLIATIVE CARE NURSE PRACTITIONER Temperature 37.4 C (99.3 F) 04/21/2020 5:05 PM PALLIATIVE CARE NURSE PRACTITIONER Respiratory Rate 15 04/21/2020 5:05 PM PALLIATIVE CARE NURSE PRACTITIONER Oxygen Saturation 99% 04/21/2020 5:00 PM PALLIATIVE CARE NURSE PRACTITIONER Inhaled Oxygen Concentration - - Weight 59 kg (130 lb) 04/21/2020 3:15 PM PALLIATIVE CARE NURSE PRACTITIONER Height 157.5 cm (5' 2") 04/21/2020 3:15 PM PALLIATIVE CARE NURSE PRACTITIONER Body Mass Index 23.78 04/21/2020 3:15 PM PALLIATIVE CARE NURSE PRACTITIONER documented in this encounter Discharge Instructions Zion John DO - 04/21/2020 DIAGNOSIS Diagnoses that have been ruled out: None Diagnoses that are still under consideration: None Final diagnoses: Right lower quadrant abdominal pain NO LIFE-THREATENING FINDINGS ON TODAY'S EXAM. PROCEDURES IN THE ER TODAY: Orders Placed This Encounter Procedures CT ABDOMEN PELVIS W CONTRAST Complete Metabolic Panel CBC with Differential Lipase, Serum Urinalysis POCT Test MEDICATIONS ADMINISTERED IN THE ER TODAY AND DISCHARGE MEDICATIONS: Orders Placed This Encounter Medications morpHINE injection 4 mg proMETHazine (PHENERGAN) 12.5 mg in NaCl 0.9% (NS) 50 mL piggyback iohexol (OMNIPAQUE 350 BULK-150 mL) injection 120 mL FOLLOW-UP RECOMMENDATIONS: RECOMMEND FOLLOW-UP WITH A PRIMARY CARE PROVIDER OR SPECIALIST IN 2-5 DAYS, ESPECIALLY IF NO IMPROVEMENT IN SYMPTOMS. MAY FOLLOW-UP WITH A PROVIDER OF YOUR CHOICE, SUCH : 1. A PHYSICIAN OF YOUR CHOICE 2. [facility], . LOCATIONS IN [facility] 3. [facility], [address] [place], [place]; [phone] OR, IF YOU WISH TO FOLLOW-UP WITHIN THE [facility], MAY TRY THESE OPTIONS (CLINIC APPOINTMENTS AVAILABLE ON QDHA-HJ-JHGO BASIS): 1. SCHEDULE AN APPOINTMENT ONLINE AT WWW.[facility] 2. OR CALL THE [facility] ACCESS CENTER AT OR 3. OR CALL YOUR [facility] PHYSICIAN'S OFFICE DIRECTLY IF YOU ARE ALREADY AN ESTABLISHED [facility] PATIENT. RETURN TO ER FOR WORSENING OF SYMPTOMS. AttachmentsThe following attachments cannot be sent through Care Everywhere. Kidney Stone w/ Colic (Korean)documented in this encounter ED Notes Katy Gordon RN - 04/21/2020 3:14 PM CSTEMS states: "Pt c/o RLQ pain for 2 days. She had a fever yesterday of 103 and vomitted X 4. We gave 4 mg zofran, 50 mcg fent and 250 ns bolus. She has a left hand 20 g. " Zion Goodrich DO - 04/21/2020 3:05 PM CST EMERGENCY DEPARTMENT ENCOUNTER [facility] Patient Name: Natanael Dyson Date of : 1995 25 year old Exam Room:ID7/[facility] Primary Care Physician: Paz Dennis Pre- Hospital Patient Escorted by: Self [9] Mode of Arrival: EMS - [place] [51] EMS Treatment Prior to ED Arrival: COMBAT SYSTEMS OFFICER treatment: Saline lock;Medication (comment) COMBAT SYSTEMS OFFICER treatment comments: 4 mg zofran, 50 mcg fent, 250 ml bolus Chief Complaint Chief Complaint Patient presents with Abdominal Pain RLQ Fever HPI 25-year-old female presenting with right lower quadrant abdominal pain. Patient states that she hada fever outpatient. She called EMS and they gave her 50 of fentanyl as well as 4 mg of Zofran secondary to nausea and lower abdominal pain. She has a history of kidney stones which she has been seen and evaluated by Dr. Gilbert outpatient. She had some nonobstructing stones that were visualized on CT scan. She states that her symptoms today feel different. Pain is rated as moderate worse with movement. Past Medical History / Immunizations Past Medical [...] Tetanus received in last 5 years: Unknown Past Surgical History Past Surgical History: Procedure Laterality Date SECTION 2014 SECTION N/A 07/21/2019 Surgeon: Shelia uQiñonez MD; Location: [facility] Labor and Delivery OR Location TUBAL LIGATION N/A 07/21/2019 Surgeon: Shelia Quiñonez MD; Location: [facility] Labor and Delivery OR Location Allergies Allergies Allergen Reactions Latex Rash Reglan [Metoclopramide Hcl] Anxiety Patient says she gets figity, angry and mean Social History Tobacco Use Never smoked or used smokeless tobacco. Alcohol Use Not Currently. Frequency of alcohol consumption: Never Drug Use Never. Sexual Activity Sexually active; Partners: Male; Control/Protection: None. Comments: Last intercourse: 01/16/2019 Review of Systems Review of Systems Constitutional: Negative for chills, fatigue and fever. HENT: Negative for sore throat. Eyes: Negative for pain. Respiratory: Negative for cough, chest tightness, shortness of breath and stridor. Breasts: Negative for pain. Cardiovascular: Negative for chest pain and palpitations. Gastrointestinal: Positive for abdominal pain, nausea and vomiting. Negative for constipation and diarrhea. Genitourinary: Positive for flank pain. Negative for bladder incontinence, vaginal discharge and difficulty urinating. Musculoskeletal: Negative for back pain. Skin: Negative for color change and wound. Neurological: Negative for dizziness, seizures, weakness, light-headedness and headaches. Physical Exam BP 123/80 | Pulse 91 | Temp 37.4 C (99.3 F) | Resp 15 | Ht 1.575 m (5' 2") | Wt 59 kg (130 lb) | SpO2 99% | BMI 23.78 kg/m Physical Exam Vitals signs and nursing note reviewed. Constitutional: General: She is not in acute distress. Appearance: She is well-developed. She is not diaphoretic. HENT: Head: Normocephalic and atraumatic. Right Ear: External ear normal. Left Ear: External ear normal. Nose: Nose normal. Eyes: General: No scleral icterus. Conjunctiva/sclera: Conjunctivae normal. Pupils: Pupils are equal, round, and reactive to light. Neck: Musculoskeletal: Normal range of motion and neck supple. Cardiovascular: Rate and Rhythm: Normal rate and regular rhythm. Heart sounds: Normal heart sounds. Pulmonary: Effort: Pulmonary effort is normal. Breath sounds: Normal breath sounds. Abdominal: General: Bowel sounds are normal. Palpations: Abdomen is soft. Tenderness: There is abdominal tenderness. Musculoskeletal: Normal range of motion. Skin: General: Skin is warm and dry. Neurological: Mental Status: She is alert and oriented to person, place, and time. Cranial Nerves: No cranial nerve deficit. Deep Tendon Reflexes: Reflexes are normal and symmetric. Psychiatric: Behavior: Behavior normal. Thought Content: Thought content normal. Labs Recent Results (from the past 24 hour(s)) Complete Metabolic Panel Collection Time: 04/21/20 3:38 PM Result Value Ref Range NA 139 135 - 145 mmol/L K 4.0 3.5 - 5.0 mmol/L CL 107 98 - 108 mmol/L CO2 TOTAL 23 23 - 31 mmol/L AGAP 9 2 - 16 BUN 14 7 - 23 mg/dL GLUCOSE 109 70 - 110 mg/dL CREATININE 0.89 0.50 - 1.04 mg/dL TOTAL BILI 0.5 0.1 - 1.1 mg/dL CALCIUM 8.6 8.6 - 10.6 mg/dL T PROTEIN 7.2 6.3 - 8.2 g/dL ALBUMIN 4.2 3.5 - 5.0 g/dL ALK PHOS 78 34 - 122 U/L ALTv 26 5 - 35 U/L AST(SGOT) 25 13 - 40 U/L eGFR Calculation (Non-) 77.3 mL/min/1.73m2 eGFR Calculation () 93.7 mL/min/1.73m2 CBC with Differential Collection Time: 04/21/20 3:38 PM Result Value Ref Range WBC 7.94 4.30 - 11.10 10*3/L RBC 4.30 3.93 - 5.25 10*6/L HGB 12.2 11.6 - 15.0 g/dL HCT 37.3 35.7 - 45.2 % MCV 86.7 80.6 - 95.5 fL MCH 28.4 25.9 - 32.8 pg MCHC 32.7 31.6 - 35.1 g/dL RDW-SD 45.7 39.0 - 49.9 fL RDW-CV 14.5 12.0 - 15.5 % PLT 428 (H) 166 - 358 10*3/L MPV 9.5 9.5 - 12.9 fL NRBC/100 WBC 0.0 0.0 - 10.0 /100 WBCs NRBC x10^3 <0.01 10*3/L GRAN MAT (NEUT) % 60.6 % IMM GRAN % 0.40 % LYMPH % 29.7 % MONO % 4.3 % EOS % 4.2 % BASO % 0.8 % GRAN MAT x10^3(ANC) 4.82 1.88 - 7.09 10*3/uL IMM GRAN x10^3 0.03 0.00 - 0.06 10*3/uL LYMPH x10^3 2.36 1.32 - 3.29 10*3/uL MONO x10^3 0.34 0.33 - 0.92 10*3/uL EOS x10^3 0.33 0.03 - 0.39 10*3/uL BASO x10^3 0.06 0.01 - 0.07 10*3/uL Lipase, Serum Collection Time: 04/21/20 3:38 PM Result Value Ref Range LIPASE 104 0 - 220 U/L Urinalysis Collection Time: 04/21/20 4:26 PM Result Value Ref Range APPEARANCE Hazy (A) Clear COLOR Yellow Yellow PH 7.0 4.8 - 8.0 SP GRAVITY 1.025 1.003 - 1.030 GLU U QUAL Normal Normal BLOOD Negative Negative KETONES Negative Negative PROTEIN Negative Negative UROBILIN 2.0 mg/dL (A) Normal BILIRUBIN Negative Negative NITRITE Negative Negative LEUK ANJELICA Negative Negative RBC/HPF 2 0 - 3 HPF WBC/HPF 1 0 - 5 HPF BACTERIA Negative Negative MUCOUS Slight (A) Negative LPF SQ EPITH 6 HPF POCT Test Collection Time: 04/21/20 4:27 PM Result Value Ref Range POCT PREG Negative On board controls acceptable with C Line Yes POCT PREG LOT # [id number] POCT PREG TEST DATE 01/10/2022 [facility] Encounter on 04/21/20 CT ABDOMEN PELVIS W CONTRAST Narrative CT ABDOMEN AND PELVIS WITH CONTRAST REASON FOR STUDY: Abd pain, appendicitis suspected COMPARISON: None available. TECHNIQUE: Multidetector axial CT images from lung bases through proximal thighs after IV administration of nonionic iodinated contrast material. Coronal and sagittal MPR images also generated. INTRAVENOUS CONTRAST ADMINISTRATION (mL Omnipaque 350): per EMR. Total DLP: 290 mGy*cm FINDINGS: Lower chest: Lung bases are clear. Mildly patulous distal esophagus. ABDOMEN AND PELVIS Liver: No focal hepatic lesions identified. Normal hepatic surface contour. Biliary Tract/GB: Gallbladder without radiopaque cholelithiasis. No gallbladder wall thickening or pericholecystic fluid. No biliary ductal dilatation. Spleen: No splenomegaly. Two technically indeterminate hypoattenuating lesions within the posterior margin of the spleen and along anterior lateral margin (2:21 and 43). Pancreas: Within normal limits. Adrenals: Within normal limits. Kidneys: Kidneys enhance symmetrically. No hydronephrosis or renal mass. Minimal fullness of the right collecting system when compared to the contralateral side is nonspecific. No appreciable arterial hyperenhancement or periureteral stranding. Two nonobstructive punctate (2 to 3 mm) calculi within the right upper renal pole. Bowel: No abnormal bowel dilatation or abnormal wall thickening. Rectosigmoid is collapsed. Normal appendix. No sliding-type hiatal hernia. Peritoneum: No pneumoperitoneum or free fluid. Vasculature: Patent abdominal vasculature. Lymph Nodes: No lymphadenopathy. Pelvic organs: Urinary bladder is decompressed. No urinary bladder calculi. Retroflexed uterus and ovaries are unremarkable. Abdominal/Pelvic Wall: Scarring within the lower ventral abdominal/pelvic wall may represent low transverse incision from . BONES: No acute or aggressive osseous abnormality. Impression 1. Normal appendix. 2. Nonobstructive right nephrolithiasis. 3. Mild right collecting system fullness is slightly more prominent on most recent prior exam but essentially unchanged when comparing to exam from November 2019. No obstructing radiopaque ureteral calculus. No appreciable periureteral stranding. Findings are nonspecific and may be related to recently passed calculus. Correlate clinically and consider checking UA. 4. Additional findings and incidentals as above. Orders and Treatments Orders Placed This Encounter Procedures CT ABDOMEN PELVIS W CONTRAST Complete Metabolic Panel CBC with Differential Lipase, Serum Urinalysis POCT Test Orders Placed This Encounter Medications morpHINE injection 4 mg proMETHazine (PHENERGAN) 12.5 mg in NaCl 0.9% (NS) 50 mL piggyback iohexol (OMNIPAQUE 350 BULK-150 mL) injection 120 mL ketorolac 10 mg tablet ondansetron 4 mg disintegrating tablet Procedures See ED Procedure Note Notes & MDM Patient was evaluated for an emergency medical condition related to Abdominal Pain (RLQ) and Fever . Differential diagnoses considered by presenting complaints but not limited to: Appendicitis, abdominal pain, renal colic, UTI, and others.. Labs:were ordered, and resulted, any relevant abnormalities were considered. Imaging:Ordered, and resulted, any relevant abnormalities were considered. IV fluids: critical presentation requiring fluid challenge Renal colic Procedures:were not performed. Assessment: 25-year-old female presenting with recurrent renal colic. CT scan demonstrates possible recently passed stone. No appendicitis. She has no leukocytosis or significant findings concerning for UTI. Patient be discharged with Toradol and Zofran for symptomatic care. Follow-up with urology for further evaluation and management. Return precautions given if symptoms worsen as document in the discharge instructions. History, physical exam findings, results of visit, differential diagnosis, medication regimens and plan of future care have been considered. Additional MDM may be found in the ED course. Differential diagnosis considered and final disposition made based on information gathered during evaluation and may not be completely ruled out or specifically listed. Vital signs were rechecked before final disposition and determined to be expected for patient's clinical condition.. Diagnosis ICD-10-CM ICD-9-CM 1. Right lower quadrant abdominal pain R10.31 789.03 2. Renal colic N23 788.0 Disposition & Follow Up ED Disposition ED Disposition Condition Comment Disch - Home Stable Patient's Medications START taking these medications KETOROLAC 10 MG TABLET Take 1 tablet by mouth every 6 (six) hours as needed for Pain (scale 7-10). ONDANSETRON 4 MG DISINTEGRATING TABLET Take 1 tablet by mouth every 8 (eight) hours as needed for Nausea and Vomiting (N/V). CONTINUE taking these medications which have NOT CHANGED ALBUTEROL 90 MCG/ACTUATION INHALER INHALE 2 PUFFS BY MOUTH EVERY 6 HOURS NEEDED FOR WHEEZING FOR SHORTNESS OF BREATH ASPIRIN (ADULT LOW DOSE ASPIRIN) 81 MG EC TABLET Take 1 tablet by mouth daily for 7 days. Take with food. CEPHALEXIN 250 MG CAPSULE Take 1 capsule by mouth every 8 (eight) hours for 7 days. FLUOXETINE 20 MG CAPSULE Take 1 capsule [...] taking these medications No medications on file Contact information for follow-up Eder Gilbert MD Specialty: URO-UROLOGY [address] [place] [phone] Instructions: For follow up of the presenting symptoms. [facility]-Emergency Department Specialty: Emergency Medicine [address] [place] [id number] Instructions: If symptoms worsen as documented in the discharge Zion Bishop DO 04/21/2020 5:33 PM ACTIVE COVID-19 PANDEMIC. documented in this encounter Miscellaneous Notes ED Nurse Note - Kiarra Wood RN - 04/21/2020 6:09 PM CSTPt given printed and verbal discharge instructions regarding kidney stone, encouraged hydration, Prescriptions provided Toradol Zofran Pt verbalized understanding of instructions, pt awake alert oriented, resp reg unlabored, skin w/d, color appropriate for race, moves all ext well,pt encouraged to follow up with pcp Advised to seek medical attention for new/prolonged/worsening of symptoms, No adverse reaction to meds given in ER noted upon discharge PIV d'cd, dressing to site, catheter in tact. Awake, alert oriented, resp reg unlabored, skin w/d, pt leaving amb with steady gait, in no apparent distress, IATIVE CARE NURSE PRACTITIONER documented in this encounter Plan of Treatment Date Type Specialty Care Team Description 04/25/2020 Telemedicine Visit Family Medicine Paz Dennis MD [address] [place] [address] [place] [phone] 06/02/2020 Office Visit Cardiology Rad Potts MD [address] [place] [phone] 08/11/2020 Office Visit Obstetrics & Gynecology Young Quiñonez MD [address] [place], [place] [address] Health Maintenance Due Date [...] Date/Time Associated Comments Diagnosis CT ABDOMEN PELVIS W Routine 04/21/2020 4:44 PM Right lower R esults for this CONTRAST PALLIATIVE CARE NURSE PRACTITIONER quadrant abdominal procedure are in pain the results section. POCT TEST Routine 04/21/2020 4:27 PM Right lower R esults for this PALLIATIVE CARE NURSE PRACTITIONER quadrant abdominal procedure are in pain the results section. URINALYSIS STAT 04/21/2020 4:26 PM Right lower Results for this PALLIATIVE CARE NURSE PRACTITIONER quadrant abdominal procedure are in pain the results section. CBC WITH DIFF STAT 04/21/2020 3:38 PM Right lower Results for this PALLIATIVE CARE NURSE PRACTITIONER quadrant abdominal procedure are in pain the results section. COMP. METABOLIC STAT 04/21/2020 3:38 PM Right lower Resul ts for this PANEL ([id number]) PALLIATIVE CARE NURSE PRACTITIONER quadrant abdominal procedur e are in pain the results section. LIPASE STAT 04/21/2020 3:38 PM Right lower Results for this PALLIATIVE CARE NURSE PRACTITIONER quadrant abdominal procedure are in pain the results section. documented in this encounter Results CT ABDOMEN PELVIS W CONTRAST (04/21/2020 4:44 PM PALLIATIVE CARE NURSE PRACTITIONER) Specimen Impressions Performed At 1. Normal appendix. PACS/VR/DOSE 2. Nonobstructive right nephrolithiasi s. 3. Mild right collecting system fullne ss is slightly more prominent on most recent prior exam but essentially u nchanged when comparing to exam from November 2019. No obstructing radiopaque ureteral yessi culus. No appreciable periureteral stranding. Findings are non specific and may be related to recently passed calculus. Correlate clin ically and consider checking UA. 4. Additional findings and incidentals as above. Narrative Performed At CT ABDOMEN AND PELVIS WITH CONTRAST PACS/VR/DOSE REASON FOR STUDY: Abd pain, appendicitis suspected COMPARISON: None available. TECHNIQUE: Multidetector axial CT images from lung bas es through proximal thighs after IV administration of nonion ic iodinated contrast material. Coronal and sagittal MPR images also gen erated. INTRAVENOUS CONTRAST ADMINISTRATION (mL Omnipaque 350): per EMR. Total DLP: 290 mGy*cm FINDINGS: Lower chest: Lung bases are clear. Mildl y patulous distal esophagus. ABDOMEN AND PELVIS Liver: No focal hepatic lesions identified. Normal hep atic surface contour. Biliary Tract/GB: Gallbladder without ra diopaque cholelithiasis. No gallbladder wall thickening or perichole cystic fluid. No biliary ductal dilatation. Spleen: No splenomegaly. Two technically indeterminate hypoattenuating lesions within the posterior margin of t he spleen and along anterior lateral margin (2:21 and 43). Pancreas: Within normal limits. Adrenals: Within normal limits. Kidneys: Kidneys enhance symmetrically. No hydronephrosis or renal mass. Minimal fullness of the right collecting system when compared to the contralateral side is nonspecific. No appreciable toñito rial hyperenhancement or periureteral stranding. Two nonobstructive punctate (2 to 3 mm) calculi within the right upper renal pole. Bowel: No abnormal bowel dilatation or a bnormal wall thickening. Rectosigmoid is collapsed. Normal appendix. No sliding -type hiatal hernia. Peritoneum: No pneumoperitoneum or free fluid. Vasculature: Patent abdominal vasculatur e. Lymph Nodes: No lymphadenopathy. Pelvic organs: Urinary bladder is decompressed. No uri nary bladder calculi. Retroflexed uterus and ovaries are unrem arkable. Abdominal/Pelvic Wall: Scarring within the lower ventr al abdominal/pelvic wall may represent low transverse incisi on from . BONES: No acute or aggressive osseous ab normality. Procedure Note [facility], Radiant Results Inft User - 2019 5:25 PM PALLIATIVE CARE NURSE PRACTITIONER CT ABDOMEN AND PELVIS WITH CONTRAST REASON FOR STUDY: Abd pain, appendicitis suspected COMPARISON: None available. TECHNIQUE: Multidetector axial CT images from lung bases through proximal thighs after IV administration of nonion ic iodinated contrast material. Coronal and sagittal MPR images also gen erated. INTRAVENOUS CONTRAST ADMINISTRATION (mL Omnipaque 350): per EMR. Total DLP: 290 mGy*cm FINDINGS: Lower chest: Lung bases are clear. Mildl y patulous distal esophagus. ABDOMEN AND PELVIS Liver: No focal hepatic lesions identifi ed. Normal hepatic surface contour. Biliary Tract/GB: Gallbladder without ra diopaque cholelithiasis. No gallbladder wall thickening or perichole cystic fluid. No biliary ductal dilatation. Spleen: No splenomegaly. Two technically indeterminate hypoattenuating lesions within the posterior margin of t he spleen and along anterior lateral margin (2:21 and 43). Pancreas: Within normal limits. Adrenals: Within normal limits. Kidneys: Kidneys enhance symmetrically. No hydronephrosis or renal mass. Minimal fullness of the right collecting system when compared to the contralateral side is nonspecific. No ap preciable arterial hyperenhancement or periureteral stranding. Two nonobstru ctive punctate (2 to 3 mm) calculi within the right upper renal pole. Bowel: No abnormal bowel dilatation or a bnormal wall thickening. Rectosigmoid is collapsed. Normal append ix. No sliding-type hiatal hernia. Peritoneum: No pneumoperitoneum or free fluid. Vasculature: Patent abdominal vasculatur e. Lymph Nodes: No lymphadenopathy. Pelvic organs: Urinary bladder is decomp ressed. No urinary bladder calculi. Retroflexed uterus and ovaries are unrem arkable. Abdominal/Pelvic Wall: Scarring within t he lower ventral abdominal/pelvic wall may represent low transverse incisi on from . BONES: No acute or aggressive osseous ab normality. IMPRESSION 1. Normal appendix. 2. Nonobstructive right nephrolithiasis . 3. Mild right collecting system fullnes s is slightly more prominent on most recent prior exam but essentially u nchanged when comparing to exam from November 2019. No obstructing radiopaqu e ureteral calculus. No appreciable periureteral stranding. Findings are non specific and may be related to recently passed calculus. Correlate clin ically and consider checking UA. 4. Additional findings and incidentals as above. Performing Organization Address City/[facility]/Zipcode Phone Number PACS/VR/DOSE POCT Test (04/21/2020 4:27 PM PALLIATIVE CARE NURSE PRACTITIONER) Pathologist Sig nature POCT PREG Negative On board controls acceptable Yes with C Line POCT PREG LOT # [id number] POCT PREG TEST DATE 01/10/2022 Specimen Urine - URINE, CLEAN CATCH Urinalysis (04/21/2020 4:26 PM PALLIATIVE CARE NURSE PRACTITIONER) [facility] Sig [facility] APPEARANCE Hazy (A) Clear [facility] COLOR Yellow Yellow [facility] PH 7.0 4.8 - 8.0 [facility] SP GRAVITY 1.025 1.003 - 1.030 [facility] GLU U QUAL Normal Normal [facility] BLOOD Negative Negative [facility] KETONES Negative Negative [facility] PROTEIN Negative Negative [facility] UROBILIN 2.0 mg/dL (A) Normal [facility] BILIRUBIN Negative Negative [facility] NITRITE Negative Negative [facility] LEUK ANJELICA Negative Negative [facility] RBC/HPF 2 0 - 3 HPF [facility] WBC/HPF 1 0 - 5 HPF [facility] BACTERIA Negative Negative [facility] MUCOUS Slight (A) Negative LPF [facility] SQ EPITH 6 HPF [facility] Specimen Urine - URINE, CLEAN CATCH Performing Organization Address [facility] Phone Number [facility] CLIA: [id number] [place] [address] Lipase, Serum (04/21/2020 3:38 PM PALLIATIVE CARE NURSE PRACTITIONER) [facility] LIPASE 104 0 - 220 U/L [facility] Specimen Blood - ARM, RIGHT Performing Organization Address [facility] Phone Number [facility] CLIA: [id number] [place] [address] CBC with Differential (04/21/2020 3:38 PM PALLIATIVE CARE NURSE PRACTITIONER) [facility] WBC 7.94 4.30 - 11.10 [facility] 10*3/L [facility] RBC 4.30 3.93 - 5.25 [facility] 10*6/L HOS[facility]ITAL [facility] HGB 12.2 11.6 - 15.0 g/dL [facility] HCT 37.3 35.7 - 45.2 % [facility] MCV 86.7 80.6 - 95.5 fL [facility] MCH 28.4 25.9 - 32.8 pg [facility] MCHC 32.7 31.6 - 35.1 g/dL [facility] RDW-SD 45.7 39.0 - 49.9 fL [facility] RDW-CV 14.5 12.0 - 15.5 % [facility] PLT 428 (H) 166 - 358 [facility] 10*3/L [facility] MPV 9.5 9.5 - 12.9 fL [facility] NRBC/100 WBC 0.0 0.0 - 10.0 /100 [facility] WBCs [facility] NRBC x10^3 <0.01 10*3/L [facility] GRAN MAT (NEUT) % 60.6 % [facility] IMM GRAN % 0.40 % [facility] LYMPH % 29.7 % [facility] MONO % 4.3 % [facility] EOS % 4.2 % [facility] BASO % 0.8 % [facility] GRAN MAT x10^3(ANC) 4.82 1.88 - 7.09 [facility] 10*3/uL HOSPITAL [facility] IMM GRAN x10^3 0.03 0.00 - 0.06 [facility] 10*3/uL [facility] LYMPH x10^3 2.36 1.32 - 3.29 [facility] 10*3/uL [facility] MONO x10^3 0.34 0.33 - 0.92 [facility] 10*3/uL [facility]ITAL [facility] EOS x10^3 0.33 0.03 - 0.39 [facility] 10*3/uL [facility] BASO x10^3 0.06 0.01 - 0.07 [facility] 10*3/uL [facility]ITAL [facility] Specimen Blood - ARM, RIGHT Performing Organization Address City/State/Zipcode Phone Number [facility] CLIA: [id number] [place] [address] Complete Metabolic Panel (04/21/2020 3:38 PM PALLIATIVE CARE NURSE PRACTITIONER) Pathologist [facility] nature NA 139 135 - 145 mmol/L [facility] K 4.0 3.5 - 5.0 mmol/L [facility] CL 107 98 - 108 mmol/L [facility] CO2 TOTAL 23 23 - 31 mmol/L [facility] AGAP 9 2 - 16 [facility] BUN 14 7 - 23 mg/dL [facility] GLUCOSE 109 70 - 110 mg/dL [facility] CREATININE 0.89 0.50 - 1.04 [facility] mg/dL [facility] TOTAL BILI 0.5 0.1 - 1.1 mg/dL [facility] CALCIUM 8.6 8.6 - 10.6 mg/dL [facility] T PROTEIN 7.2 6.3 - 8.2 g/dL [facility] ALBUMIN 4.2 3.5 - 5.0 g/dL [facility] ALK PHOS 78 34 - 122 U/L [facility] ALTv 26 5 - 35 U/L [facility] AST(SGOT) 25 13 - 40 U/L [facility] eGFR Calculation 77.3 mL/min/1.73m2 [facility] (Non-) [facility] LABORATOR Y eGFR Calculation 93.7 mL/min/1.73m2 [facility] () [facility] Specimen Blood - ARM, RIGHT Narrative Performed At Association of Glomerular Filtration Rate (GFR) [facility] and Staging of Kidney Disease* [...] tests). Performing Organization Address City/State/Zipcode Phone Number [facility] CLIA: [id number] [place] [address] documented in this encounter Visit Diagnoses Diagnosis Right lower quadrant abdominal pain - Pr imary Abdominal pain, right lower quadrant Renal colic documented in this encounter Administered Medications Medication Order MAR Action Action Date Dose Rate Site HYDROcodone-acetaminophen Given 04/21/2020 5:50 PM PALLIATIVE CARE NURSE PRACTITIONER 1 tablet (NORCO 5) 5-325 mg tablet 1 tablet 1 tablet, Oral, ONCE, 1 dose, Kathie 04/21/20 at 1845, [place] iohexol (OMNIPAQUE 350 BULK-150 mL) Given 04/21/2020 5:00 PM CS T 120 mL injection 120 mL 120 mL, Intravenous, ONCE, 1 dose, Kathie 04/21/20 at 1700, Routine morpHINE injection 4 mg Given 04/21/2020 3:54 PM PALLIATIVE CARE NURSE PRACTITIONER 4 mg 4 mg, Slow IV Push, ONCE, 1 dose, Kathie 04/21/20 at 1645, STAT proMETHazine (PHENERGAN) 12.5 mg in NaCl Given 04/21/2020 3:55 PM PALLIATIVE CARE NURSE PRACTITIONER 12.5 mg 0.9% (NS) 50 mL piggyback 12.5 mg, IV Piggyback, ONCE, 1 dose, Kathie 04/21/20 at 1645, 50 mL documented in this encounter Insurance Payer Benefit Plan / Subscriber ID Effective Phone Address T ype Group Dates SAMMY CHRISTIANSON [id number] 2019-Pres [address] Medic aid [employer]ALTHC[employer] [place] [id number] MANAGED MEDICAID [place], [place] documented as of this encounter
--- OUTSIDE RECORDS SUMMARY | 2020-04-28 17:09 | XMS REPORT | Summary of Care ---
:1995 Author Organization [facility] - [facility] Address [address] [place] [address] Care Team Providers Name Role Phone Jessica Baker Insurance Hmo Kassandra Dennis MD Primary Care Provider Encounter Details Date Type Department Care Team Description 04/15/2020 Patient Secure [facility] Lopez Hitchcock M D Nephrology- [address], [address] [address] [phone] [place] [address] Allergies Active Allergy Reactions Severity Noted Date Comments Latex Rash 04/13/2020 Metoclopramide Hcl Anxiety 07/12/2019 Patient s ays she gets figity, angry and mean documented as of this encounter (statuses as of 04/22/2020) Medications Medication Sig Dispensed Refills Start Date [...] as of this encounter (statuses as of 04/22/2020) Active Problems Problem Noted Date Sinus tachycardia 04/13/2020 Abdominal pain 04/13/2020 Tachycardia 04/12/2020 Anxiety disorder, unspecified type 01/05/2020 Insomnia, unspecified type 01/05/2020 Other depression 08/13/2019 Cervical Papanicolaou smear negative within last 12 mo [facility] 06/19/2019 Overview: 12/2018 NIL pap , see scanned records documented as of this encounter (statuses as of 04/22/2020) Resolved Problems Problem Noted Date Resolved Date [...] as of this encounter (statuses as of 04/22/2020) Immunizations Name Administration Dates Next Due Influenza [...] with No / Unsure 04/15/2020 9:44 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 documented as of this encounter Last Filed Vital Signs Not on filedocumented in this encounter Plan of Treatment Date Type Specialty Care Team Description 04/25/2020 Telemedicine Visit Family Medicine Paz Dennis MD [address] [place] [phone] 04/28/2020 Office Visit Nephrology Lopez Hitchcock MD [address] [place] [phone] 06/02/2020 Office Visit Cardiology Rad Potts MD [address] [place] [address] 08/11/2020 Office Visit Obstetrics & Quiñonez, Munir Johnson Gynecology [address] [place], [place] [address] Health Maintenance Due Date [...] Address T ype Group Dates SAMMY CHRISTIANSON [id number] 2019-Pres Alisson RYAN Medic aid HEALTHCARE - [place]CARE [place] [id number] MANAGED MEDICAID [place], [place] documented as of this encounter
--- OUTSIDE RECORDS SUMMARY | 2020-04-28 17:10 | XMS REPORT | Summary of Care ---
:1995 Author Organization [facility] Address [address] [place] [address] Care Team Providers Name Role Phone Jessica Baker Insurance Hmo Kassandra Dennis MD Primary Care Provider Reason for Visit Reason Comments Assessment Encounter Details Date Type Department Care Team Description 04/27/2020 Telephone [facility] Cardiology- Rad Potts MD Assessment [address], [address] [place] [address] [place] [address] [phone] Allergies Active Allergy Reactions Severity Noted Date Comments Latex Rash 04/13/2020 Metoclopramide Hcl Anxiety 07/12/2019 Patient s ays she gets figity, angry and mean documented as of this encounter (statuses as of 04/27/2020) Medications Medication Sig Dispensed Refills Start End Date Status Date ALBUTEROL 90 INHALE 2 PUFFS 7 Each 3 Ac tive mcg/actuation BY MOUTH EVERY 0 inhalerIndications: 6 HOURS Asthma affecting NEEDED FOR in second WHEEZING FOR trimester SHORTNESS OF BREATH potassium citrate Take 1 tablet 180 tablet 1 Active 10 mEq (1,080 mg) by mouth 3 0 SR (three) times tabletIndications: daily with Pain meals. FLUoxetine 20 mg Take 1 capsule 30 capsule 3 Active capsuleIndications: by mouth 0 Depression, daily. unspecified depression type, depression ketorolac 10 mg Take 1 tablet 15 tablet 0 Active tabletIndications: by mouth every 0 Right lower 6 (six) hours quadrant abdominal as needed for pain, Renal colic Pain (scale 7-10). ondansetron 4 mg Take 1 tablet 20 tablet 0 Active disintegrating by mouth every 0 tabletIndications: 8 (eight) Right lower hours as quadrant abdominal needed for pain, Renal colic Nausea and Vomiting (N/V). methocarbamoL 750 Take 1 tablet 40 tablet 0 Active mg by mouth 4 0 tabletIndications: (four) times Mid back pain, Low daily as back pain, needed (muscle unspecified back pain or pain laterality, spasm). unspecified chronicity, unspecified whether sciatica present nadoloL 20 mg Take 1 tablet 30 tablet 3 Ac tive tablet by mouth 0 daily. metoprolol Take 0.5 15 tablet 0 04/27/20 Discontin ued succinate XL 25 mg tablets by 0 20 (Written Order) 24 hr mouth daily tabletIndications: for 30 days. Tachycardia documented as of this encounter (statuses as of 04/27/2020) Active Problems Problem Noted Date Sinus tachycardia 04/13/2020 Abdominal pain 04/13/2020 Tachycardia 04/12/2020 Anxiety disorder, unspecified type 01/05/2020 Insomnia, unspecified type 01/05/2020 Other depression 08/13/2019 Cervical Papanicolaou smear negative within last 12 mo 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 documented as of this encounter Last Filed Vital Signs Not on filedocumented in this encounter Miscellaneous Notes Telephone Encounter - Linnea Loo RN - 04/27/2020 4:48 PM CSTNotified patient of md's recommendations. Discussed in depth about medication changes, keeping a bp and hr log, follow-up with PCP and possible EP referral. Holter monitor shows average heart rate of 93 bpm ranging anywhere from 66 to 135 bpm. No significant arrhythmias noted. If she continues to have symptoms I would recommend changing her Toprol-XL to Nadolol 20 mg daily. We can uptitrate based upon her blood pressure heart rate response. I recommend that she follow-up with her primary care physician also to see if there are noncardiac reasons for underlying palpitations since her palpitation is sinus tachycardia. Please mail her the complete Holter monitors results/strips for her review and reference. If she continues to have persistent symptoms, I would also recommend going forward with an EP appointment for further evaluation for underlying sinus tachycardia. Holter 04/2020 Sinus rhythm without premature beats Average heart rate 93 (66-135) bpm No significant pauses or blocks No atrial fibrillation No symptoms reported elephone Encounter - Rad Potts MD - 04/27/2020 3:57 PM CSTHolter monitor shows average heart rate of 93 bpm ranging anywhere from 66 to 135 bpm. No significant arrhythmias noted. If she continues to have symptoms I would recommend changing her Toprol-XL to Nadolol 20 mg daily. We can uptitrate based upon her blood pressure heart rate response. I recommend that she follow-up with her primary care physician also to see if there are noncardiac reasons for underlying palpitations since her palpitation is sinus tachycardia. Please mail her the complete Holter monitors results/strips for her review and reference. If she continues to have persistent symptoms, I would also recommend going forward with an EP appointment for further evaluation for underlying sinus tachycardia. Holter 04/2020 Sinus rhythm without premature beats Average heart rate 93 (66-135) bpm No significant pauses or blocks No atrial fibrillation No symptoms reported elephone Encounter - Linnea Loo RN - 04/27/2020 1:58 PM CSTPatient states that she keeps having multiple episodes of tachycardia in which it takes her breathe away and she has to sit down. She said she was taken to the ER recently and her heart rate in the ambulance was 150s. She said that her had to wake her up last night because he could hear her heart beating hard. Patient is very concerned. She says the dose of metoprolol she is on is not workingand would like to increase it. Advised patient that the highest her heart rate was recorded on the heart monitor was 135. Advised her that she might need to wear one longer to capture these episodes. Patient is agreeable to wear a monitor for 30 days. Informed patient that I would send this to the doctor and see what he would like to order. elephone Encounter - Greg Adkins - 04/27/2020 1:37 PM CSTPatient requesting a call to discuss heart monitor results. Please advise. documented in this encounter Plan of Treatment Date Type Specialty Care Team Description 04/28/2020 Office Visit Nephrology Lopez Hitchcock MD [address] [place] [phone] 06/02/2020 Office Visit Cardiology Rad Potts MD [address] [place] [phone] 08/11/2020 Office Visit Obstetrics & Gynecology Young Quiñonez MD [address] [facility] [address] [place] [phone] Health Maintenance Due Date Last Done [...] [facility] Group Dates SAMMY CHRISTIANSON [id number] 2019-Pres [address] Medic aid HEALTHCARE - [place]CARE [place] [id number] MANAGED MEDICAID [place], [place] documented as of this encounter
--- OUTSIDE RECORDS SUMMARY | 2020-04-28 17:10 | XMS REPORT | Summary of Care ---
:1995 Author Organization [facility] Address [address] [place] [address] Care Team Providers Name Role Phone Jessica Baker Insurance Hmo Kassandra Dennis MD Primary Care Provider Reason for Visit Reason Comments Refill Request Encounter Details Date Type Department Care Team Description 04/27/2020 Refill [facility] Cardiology- Rad Potts MD Refill Request [address], [address] [place] [address] [place] [address] [phone] Allergies Active Allergy Reactions Severity Noted Date Comments Latex Rash 04/13/2020 Metoclopramide Hcl Anxiety 07/12/2019 Patient s ays she gets figity, angry and mean documented as of this encounter (statuses as of 04/28/2020) Medications Medication Sig Dispensed Refills Start Date [...] mouth daily. Depression, unspecified depression type, depression ketorolac 10 mg Take 1 tablet by 15 tablet 0 04/21/2020 Active tabletIndications: mouth every 6 Right lower quadrant (six) hours as abdominal pain, Renal needed for Pain colic (scale 7-10). ondansetron 4 mg Take 1 tablet by 20 tablet 0 04/21/2020 Active disintegrating mouth every 8 tabletIndications: (eight) hours as Right lower quadrant needed for Nausea abdominal pain, Renal and Vomiting colic (N/V). methocarbamoL 750 mg Take 1 tablet by 40 tablet 0 04/25/2020 Active tabletIndications: Mid mouth 4 (four) back pain, Low back times daily as pain, unspecified back needed (muscle pain laterality, pain or spasm). unspecified chronicity, unspecified whether sciatica present documented as of this encounter (statuses as of 04/28/2020) Active Problems Problem Noted Date Sinus tachycardia 04/13/2020 Abdominal pain 04/13/2020 Tachycardia 04/12/2020 Anxiety disorder, unspecified type 01/05/2020 Insomnia, unspecified type 01/05/2020 Other depression 08/13/2019 Cervical Papanicolaou smear negative within last 12 mo [facility] 06/19/2019 Overview: 12/2018 NIL pap , see scanned records documented as of this encounter (statuses as of 04/28/2020) Resolved Problems Problem Noted Date Resolved Date [...] as of this encounter (statuses as of 04/28/2020) Immunizations Name Administration Dates Next Due Influenza [...] with No / Unsure 04/21/2020 3:13 PM 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 documented as of this encounter Last Filed Vital Signs Not on filedocumented in this encounter Miscellaneous Notes Telephone Encounter - Greg Adkins - 04/27/2020 1:36 PM CSTPatient requesting a higher dosage. Patient states it has not been working well for her. documented in this encounter Plan of Treatment Date Type Specialty Care Team Description 04/28/2020 Office Visit Nephrology Lopez Hitchcock MD [address] [place] [phone] 06/02/2020 Office Visit Cardiology Rad Potts MD [address] [place] [phone] 08/11/2020 Office Visit Obstetrics & Gynecology Young Quiñonez MD [address] [facility] [address] [place] [phone] Health Maintenance Due Date Last Done Comments HPV VACCINES (1 - 2-dose series) 2006 PAP SMEAR 02/19/2016 INFLUENZA VACCINE (#1) 2020 02/06/2019 Depression Screening 09/01/2020 09/02/2019, 09/02/2019 DTaP,Tdap,and Td Vaccines (2 - Td) 05/21/2029 05/21/2019 PNEUMOCOCCAL 0-64 YEARS COMBINED SERIES Discontinued documented as of this encounter Results Not on filedocumented in this encounter Visit Diagnoses Diagnosis Tachycardia Tachycardia, unspecified documented in this encounter Insurance Payer Benefit Plan / Subscriber ID Effective Phone Address T [facility] Group Dates SAMMY CHRISTIANSON [id number] 2019-Pres [address] Medic aid HEALTHCARE - [place]CARE [place] [id number] MANAGED MED[place]ID [place] documented as of this encounter
--- OUTSIDE RECORDS SUMMARY | 2020-04-28 17:10 | XMS REPORT | Summary of Care ---
:1995 Author Organization [facility] - [facility] Address [address] [place] [address] Care Team Providers Name Role Phone Jessica Baker Insurance Hmo Kassandra Dennis MD Primary Care Provider Encounter Details Date Type Department Care Team Description 04/26/2020 Patient Secure [facility] Lopez Hitchcock M D Nephrology- [address], [address] [address] 6th Floor [phone] [place] [address] Allergies Active Allergy Reactions Severity Noted Date Comments Latex Rash 04/13/2020 Metoclopramide Hcl Anxiety 07/12/2019 Patient s ays she gets figity, angry and mean documented as of this encounter (statuses as of 04/26/2020) Medications Medication Sig Dispensed Refills Start Date [...] mouth daily tabletIndications: for 30 days. Tachycardia ketorolac 10 mg Take 1 tablet by [...] pain, Renal Nausea and colic Vomiting (N/V). methocarbamoL 750 mg Take 1 tablet by 40 tablet 0 04/25/2020 Active tabletIndications: mouth 4 (four) Mid back pain, Low times daily as back pain, needed (muscle unspecified back pain pain or spasm). laterality, unspecified chronicity, unspecified whether sciatica present documented as of this encounter (statuses as of 04/26/2020) Active Problems Problem Noted Date Sinus tachycardia 04/13/2020 Abdominal pain 04/13/2020 Tachycardia 04/12/2020 Anxiety disorder, unspecified type 01/05/2020 Insomnia, unspecified type 01/05/2020 Other depression 08/13/2019 Cervical Papanicolaou smear negative within last 12 mo [facility] 06/19/2019 Overview: 12/2018 NIL pap , see scanned records documented as of this encounter (statuses as of 04/26/2020) Resolved Problems Problem Noted Date Resolved Date [...] as of this encounter (statuses as of 04/26/2020) Immunizations Name Administration Dates Next Due Influenza [...] with No / Unsure 04/21/2020 3:13 PM 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 documented as of this encounter Last Filed Vital Signs Not on filedocumented in this encounter Plan of Treatment Date Type Specialty Care Team Description 04/28/2020 Office Visit Nephrology Lopez Hitchcock MD [address] [place] [address] [address] [place], [place] [phone] 06/02/2020 Office Visit Cardiology Rad Potts MD [address] [place], [place] [phone] 08/11/2020 Office Visit Obstetrics & Gynecology Young Quiñonez MD [address] [place] [address] 15 Health Maintenance Due Date Last Done [...] Address T e Group Dates SAMMY CHRISTIANSON [id number] 2019-Pres Alisson RYAN Medic aid HEALTHCARE - HE[place]CARE [place] [id number] MANAGED MEDICAID [place], [place] documented as of this encounter
--- OUTSIDE RECORDS SUMMARY | 2020-04-28 17:10 | XMS REPORT | Summary of Care ---
:1995 Author Organization [facility] - [facility] Address [address] [place] [address] Care Team Providers Name Role Phone Jessica Baker Insurance Hmo Kassandra Dennis MD Primary Care Provider Encounter Details Date Type Department Care Team Description 04/19/2020 [facility] Roscoe Potts Angleton MD [address] [facility], [address]IA [address] [place] [address] [place], [place] [phone] [address] Allergies Active Allergy Reactions Severity Noted Date Comments Latex Rash 04/13/2020 Metoclopramide Hcl Anxiety 07/12/2019 Patient s ays she gets figity, angry and mean documented as of this encounter (statuses as of 04/27/2020) Medications Medication Sig Dispensed Refills Start Date End Date Status ALBUTEROL 90 INHALE 2 PUFFS 7 Each 3 05/26/2019 A ctive mcg/actuation BY MOUTH EVERY inhalerIndicatio 6 HOURS ns: Asthma NEEDED FOR affecting WHEEZING FOR in SHORTNESS OF second trimester BREATH potassium Take 1 tablet 180 tablet 1 01/14/2020 Acti ve citrate 10 mEq by mouth 3 (1,080 mg) SR (three) times tabletIndication daily with s: Pain meals. FLUoxetine 20 mg Take 1 capsule 30 capsule 3 03/17/2020 Active capsuleIndicatio by mouth ns: Depression, daily. unspecified depression type, depression metoprolol Take 0.5 15 tablet 0 04/14/2020 Disconti nued succinate XL 25 tablets by 0 (Wr itten Order) mg 24 hr mouth daily tabletIndication for 30 days. 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 documented as of this encounter Last Filed Vital Signs Not on filedocumented in this encounter Miscellaneous Notes Telephone Encounter - Rad Potts MD - 04/27/2020 4:00 PM CSTSee phone encounter 04/27/2020 elephone Encounter - Heidi Cortez - 04/26/2020 9:42 AM CSTThe patient would like for a nurse to call her back regarding results. documented in this encounter Plan of Treatment Date Type Specialty Care Team Description 04/28/2020 Office Visit Nephrology Lopez Hitchcock MD [address] [place] [phone] 06/02/2020 Office Visit Cardiology Rad Potts MD [address] [place] [phone] 08/11/2020 Office Visit Obstetrics & Gynecology Young Quiñonez MD [address] [place] [address] 15 Health Maintenance Due Date Last Done [...] Address T ype Group Dates SAMMY CHRISTIANSON [id number] 2019-Pres [address] Medic aid [place]CARE [place] [id number] MANAGED MEDICAID [place], [place] documented as of this encounter
--- NOTE | 2020-04-28 18:22 | ER ---
Nurse's Notes [facility] Name: Natanael Dyson Age: 25 yrs Sex: Female : 1995 Arrival Date: 04/28/2020 Time: 16:58 Bed Waiting Private MD: Diagnosis: Presentation: 04/28 17:04 Chief complaint: Patient states: Slammed right hand in door, reports middle finger is jl7 the most painful. Coronavirus screen: Client denies travel out of the [place] in the last 14 days. At this time, the client does not indicate any symptoms associated with coronavirus-19. Ebola Screen: No symptoms or risks identified at this time. Initial Sepsis Screen: Does the patient meet any 2 criteria? No. Patient's initial sepsis screen is negative. Does the patient have a suspected source of infection? No. Patient's initial sepsis screen is negative. Risk Assessment: Do you want to hurt yourself or someone else? Patient reports no desire to harm self or others. Onset of symptoms was April 28, 2020 at 16:00. Care prior to arrival: None. 17:04 Method Of Arrival: Ambulatory 7 17:04 Acuity: THIERNO 4 jl7 Triage Assessment: 17:10 General: Appears in no apparent distress. uncomfortable, Behavior is calm, cooperative, jl7 appropriate for age. Pain: Complains of pain in right hand Pain currently is 9 out of 10 on a pain scale. Musculoskeletal: Swelling present in right hand. Injury Description: Crush injury sustained to right hand. CASE MANAGEMENT RN: 17:10 LMP 04/20/2020 jl7 Historical: - Allergies: 17:10 Reglan; jl7 - PMHx: 17:10 Asthma; Kidney stones; tachycardia; jl7 - Immunization history:: Adult Immunizations not up to date. - Social history:: Smoking status: Patient denies any tobacco usage or history of. Assessment: 18:00 Reassessment: Asked pt if x-ray had been taken yet, pt agitated and reports no and that jl7 she's about to leave. States "There's not a doctor that can come look at my fucking hand. It fucking hurts." Explained to pt that there is not a room available at this time but radiology is going to take an x-ray while she wait for a room. Offered pt some ice for her hand, pt states "That aiguille ngna do shit." Informed pt she will be taken straight back to a room as soon as one is available. Charge Nurse notified, called x-ray and x-ray came to get pt but pt is unable to be located at this time. Vital Signs: 17:04 BP 144 / 90; Pulse 89; Resp 17; Temp 98.1; Pulse Ox 99% ; Weight 58.97 kg; Height 5 ft. jl7 2 in. (157.48 cm); Pain 9/10; 17:04 Body Mass Index 23.78 (58.97 kg, 157.48 cm) jl7 ED Course: 16:58 Patient arrived in ED. ds1 17:06 Triage completed. jl7 17:10 Arm band placed on right wrist. jl7 18:20 Patient's name was called from ER lobby. No response. Unable to locate patient. Will jl7 disposition as left without being seen by a provider. Administered Medications: No medications were administered Outcome: 18:21 Patient left the ED. jl7 Signatures: Isaura Garcia ds1 Matty Bee, RN RN jl7
[2020-04-29 12:54] VITALS: BP 144/90; TEMP 98.1; O2SAT 99
== END 2020-04-28 18:21 | disposition left against medical advice (07) ==
LOC: ER 16:57
DX: Z53.21 Procedure and treatment not carried out due to patient leaving prior to being seen by health care provider (principal)
CPT/HCPCS: 99281

== ENCOUNTER 2020-05-10 08:00 | Emergency (ER) | payer MEDICAID ==
--- OUTSIDE RECORDS SUMMARY | 2020-05-10 08:02 | XMS REPORT | Continuity of Care Document ---
:1995 Author Organization [facility] t Address [address] [place] [address] Care Team Providers Name Role Phone Panda Echols NP Attending Clinician Delroy FELIX, K.H. Attending Clinician Kassandra Dennis MD Attending Clinician Problems This patient has no known problems. Allergies, Adverse Reactions, Alerts This patient has no known allergies or adverse reactions. Medications This patient has no known medications. Procedures This patient has no known procedures. Encounters Start End Encounter Admission Attending Care Care Encounter Source Date/Time Date/Time Type Type Clinicians Facility Department ID 2020-05-08 2020-05-08 Emergency [facility] [id number] 10:24:00 13:03:00 Olamide Richards [id number] [place] [id number] [place] [id number] 2020-05-04 2020-05-04 Patient VICK Potts [id number] 00:00:00 00:00:00 Secure Msg Rad Richards [id number] [place] [id number] [phone] 2020-05-03 2020-05-03 Office VICK Dennis [id number] 14:30:40 15:45:49 Visit [facility] [id number] [place] [id number] [place] [phone] [place] 044 Office Building One Results This patient has no known results.
--- OUTSIDE RECORDS SUMMARY | 2020-05-10 08:17 | XMS REPORT | Summary of Care ---
:1995 Author Organization [facility] - [facility] Address [address] [place] [address] Care Team Providers Name Role Phone Jessica Baker Insurance Hmo Kassandra Dennis MD Primary Care Provider Reason for Referral Radiology Services (STAT) Status Reason Specialty Diagnoses / Referred By Referred To Procedures Contact Contact New Request Diagnostic Diagnoses Pain of right hand Maggie Loo Radiology Procedures XR HAND 3+ VW RIGHT J, DO [address] [place] [address] Reason for Visit Reason Comments Other Right Hand trauma Auth/Cert Status Reason Specialty Diagnoses / Referred By Referred To Procedures Contact Contact Emergency Medicine Ad[facility] Em ergency Dept [address] [place] [address] Fax: Encounter Details Date Type Department Care Team Description 04/28/2020 Emergency ADC-Emergency Hany Ng, Pain of ri ght hand (Primary Dx); Department EMNP Contusion of right hand, initial encount er [address] [place] [address] [id number] [place], [place] [id number] Allergies Active Allergy Reactions Severity Noted Date [...] unspecified whether sciatica present nadoloL 20 mg tablet Take 1 tablet by 30 tablet 3 04/27/2020 Active mouth daily. documented as of this encounter [...] been in contact with No / Unsure 04/28/2020 6:42 PM BANK ACCOUNTANT someone who was confirmed or 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 documented as of this encounter Last Filed Vital Signs Vital Sign Reading Time Taken Comments Blood Pressure 134/96 04/28/2020 6:48 PM BANK ACCOUNTANT Pulse 80 04/28/2020 6:48 PM BANK ACCOUNTANT Temperature 37 C (98.6 F) 04/28/2020 6:48 PM BANK ACCOUNTANT Respiratory Rate 18 04/28/2020 6:48 PM BANK ACCOUNTANT Oxygen Saturation 100% 04/28/2020 6:48 PM BANK ACCOUNTANT Inhaled Oxygen Concentration - - Weight 59 kg (130 lb) 04/28/2020 6:48 PM BANK ACCOUNTANT Height - - Body Mass Index 23.78 04/21/2020 3:15 PM BANK ACCOUNTANT documented in this encounter Discharge Instructions Hany Yung EMNP - 04/28/2020NO LIFE-THREATENING FINDINGS ON TODAY'S EXAM. SPECIAL INSTRUCTIONS: 1. Ice to affected area at least 4 times a day for 10-20 minutes at a time 2. May take motrin 600mg every 6 hours with food for pain 3. May take 2 tylenol every 4 hours for pain 4. See attached information FOLLOW-UP RECOMMENDATIONS: RECOMMEND FOLLOW-UP WITH A PRIMARY CARE PROVIDER OR SPECIALIST IN 2-5 DAYS, ESPECIALLY IF NO IMPROVEMENT IN SYMPTOMS. TO FOLLOW-UP WITHIN THE [facility]ARE [facility], TRY THESE OPTIONS (CLINIC APPOINTMENTS AVAILABLE ON ZDAV-SM-CYGA BASIS): 1. SCHEDULE AN APPOINTMENT ONLINE AT [email or web address] 2. OR CALL THE [facility] ACCESS CENTER AT OR 3. OR CALL YOUR [facility] PHYSICIAN'S OFFICE DIRECTLY IF YOU ARE ALREADY AN ESTABLISHED [facility] PATIENT. OR, YOU MAY FOLLOW-UP WITH A PROVIDER OF YOUR CHOICE, SUCH : 1. A PHYSICIAN OF YOUR CHOICE 2. [facility], . LOCATIONS IN [facility] 3. [facility], [address], [place]; [phone] RETURN TO ER FOR WORSENING OF SYMPTOMS. AttachmentsThe following attachments cannot be sent through Care Everywhere.Hand Contusion (Tuvaluan)RICE (Tuvaluan)documented in this encounter ED Notes Lisandro Pratt RN - 04/28/2020 6:48 PM CSTC/O right hand caught in car door around 4PM today. Also C/O migraine TORRES. documented in this encounter Miscellaneous Notes ED Nurse Note - Rose Bowman RN - 04/28/2020 7:47 PM CSTPt given printed and verbal discharge instructions regarding hand pain, Contusion of right hand, encouraged hydration, Discussed ibuprofen and to take with food to avoid GI distress. Pt verbalized understanding of instructions, pt awake alert oriented, resp reg unlabored, skin w/d, color appropriate for race, moves all ext well,pt encouraged to follow up with pcp in one week. Advised to seek medical attention for new/prolonged/worsening of symptoms, Symptoms increase pain, any signs of infection, fever over 100.4 No adverse reaction to meds given in ER noted upon discharge PIV d'cd, dressing to site, catheter in tact. Awake, alert oriented, resp reg unlabored, skin w/d, pt leaving amb with steady gait, in no apparent distress, ACCOUNTANT documented in this encounter Plan of Treatment Date Type Specialty Care Team Description 06/02/2020 Office Visit Cardiology Rad Potts MD [address] [place] [phone] 08/11/2020 Office Visit Obstetrics & Gynecology Young Quiñonez MD [address] [place] [address] 15 Health Maintenance Due Date Last Done Comments HPV VACCINES (1 - 2-dose series) 2006 PAP SMEAR 02/19/2016 INFLUENZA VACCINE (#1) 2020 02/06/2019 Depression Screening 09/01/2020 09/02/2019, 09/02/2019 DTaP,Tdap,and Td Vaccines (2 - Td) 05/21/2029 05/21/2019 PNEUMOCOCCAL 0-64 YEARS COMBINED SERIES Discontinued documented as of this encounter Procedures Procedure Name Priority Date/Time Associated Diagnosis Comme nts XR HAND 3+ VW RIGHT STAT 04/28/2020 7:03 PM Pain of right hand Results for this BANK ACCOUNTANT procedure are i n the results section. CONSENT/REFUSAL FOR Routine 04/28/2020 6:42 PM DIAGNOSIS AND BANK ACCOUNTANT TREATMENT documented in this encounter Results XR HAND 3+ VW RIGHT (04/28/2020 7:03 PM BANK ACCOUNTANT) Specimen Impressions Performed At PACS/VR/DOSE No acute fractures or dislocations. RL: 135 END OF REPORT Narrative Performed At ORDERING PHYSICIAN: HANY NG PACS/VR/DOSE CLINICAL INFORMATION: right hand pain COMPARISON: None Technique: 3 views of the right hand Findings: Mineralization is age appropriate. No acute fractures or dislocations are seen. No radiopaque foreign bodies are s een in the soft tissues. Procedure Note [facility], Radiant Results Inft User - 2019 7:29 PM BANK ACCOUNTANT ORDERING PHYSICIAN: HANY NG CLINICAL INFORMATION: right hand pain COMPARISON: None Technique: 3 views of the right hand Findings: Mineralization is age appropriate. No ac letty fractures or dislocations are seen. No radiopaque foreign bodies are s een in the soft tissues. IMPRESSION No acute fractures or dislocations. RL: 135 END OF REPORT Performing Organization Address City/State/Zipcode Phone Number PACS/VR/DOSE documented in this encounter Visit Diagnoses Diagnosis Pain of right hand - Primary Pain in limb Contusion of right hand, initial encount er documented in this encounter Administered Medications Medication Order MAR Action Action Date Dose Rate Site [id number] Given 04/28/2020 7:30 PM BANK ACCOUNTANT 2 ta blets (ESGIC) 50-325-40 mg tablet 2 tablet 2 tablet, Oral, ONCE, 1 dose, Kathie 04/28/20 at 2029, Routine documented in this encounter Insurance Payer Benefit Plan / Subscriber ID Effective Phone Address T e Group Dates SAMMY CHRISTIANSON [id number] 2019-Pres [address] Medic aid HEALTHCARE [place] [id number] MANAGED MEDICAID [place], [place] documented as of this encounter
--- OUTSIDE RECORDS SUMMARY | 2020-05-10 08:18 | XMS REPORT | Summary of Care ---
:1995 Author Organization [facility] - [facility] Address [address] [place] [address] Care Team Providers Name Role Phone Jessica Baker Insurance Hmo Kassandra Dennis MD Primary Care Provider Reason for Visit Reason Comments Headache Encounter Details Date Type Department Care Team Description 04/30/2020 Nurse Visit [facility] Sharyn Burris FNP [address] [facility] [address] [place] [address] Acute nonintractable Medicine - [facility] headache, unspecified [address] [facility] headache t ype (Primary Drive Dx) [place] [address] Allergies Active Allergy Reactions Severity Noted Date Comments Latex Rash 04/13/2020 Metoclopramide Hcl Anxiety 07/12/2019 Patient s ays she gets figity, angry and mean documented as of this encounter (statuses as of 04/30/2020) Medications Medication Sig Dispensed Refills Start Date [...] as of this encounter (statuses as of 04/30/2020) Active Problems Problem Noted Date Sinus tachycardia 04/13/2020 Abdominal pain 04/13/2020 Tachycardia 04/12/2020 Anxiety disorder, unspecified type 01/05/2020 Insomnia, unspecified type 01/05/2020 Other depression 08/13/2019 Cervical Papanicolaou smear negative within last 12 mo [facility] 06/19/2019 Overview: 12/2018 NIL pap , see scanned records documented as of this encounter (statuses as of 04/30/2020) Resolved Problems Problem Noted Date Resolved Date [...] 05/30/2019 07/21/2019 39 weeks gestation of 05/29/2019 01/18/20 20 Threatened labor, third trimester 05/28/2019 07/21/2019 [...] as of this encounter (statuses as of 04/30/2020) Immunizations Name Administration Dates Next Due Influenza [...] with No / Unsure 04/28/2020 6:42 PM PARAPROFESSIONAL AIDE TEACHER someone who was confirmed or 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 documented as of this encounter Last Filed Vital Signs Vital Sign Reading Time Taken Comments Blood Pressure 131/97 04/30/2020 10:35 AM PARAPROFESSIONAL AIDE TEACHER Pulse 71 04/30/2020 10:33 AM PARAPROFESSIONAL AIDE TEACHER Temperature 36.6 C (97.8 F) 04/30/2020 10:33 AM PARAPROFESSIONAL AIDE TEACHER Respiratory Rate 17 04/30/2020 10:33 AM PARAPROFESSIONAL AIDE TEACHER Oxygen Saturation 100% 04/30/2020 10:33 AM PARAPROFESSIONAL AIDE TEACHER Inhaled Oxygen Concentration - - Weight 59.9 kg (132 lb) 04/30/2020 10:33 AM PARAPROFESSIONAL AIDE TEACHER Height 157.5 cm (5' 2") 04/30/2020 10:33 AM PARAPROFESSIONAL AIDE TEACHER Body Mass Index 24.14 04/30/2020 10:33 AM PARAPROFESSIONAL AIDE TEACHER documented in this encounter Progress Notes Ana Palomares RN - 04/30/2020 10:15 AM CST complaining of Chief Complaint Patient presents with Headache Patient reports started nodolol 4 days ago, about 30-45 after headache, about 30 minutes later lossof balance, blurred vision, dizziness, headache. C/o pain 9/10 constant throbbing. Patient reports history of tachycardia Patient AAOx4, ambulatory, eupneic, skin pink/warm/dry, no acute distress noted. Patient encouraged to seek emergency medical treatment at local emergency room for blurred vision, headache,m dizziness. Case discussed with Sharyn Perez who agrees with treatment plan recommendations. Patient verbalizes understanding and states she will be seen at [facility] ER. Ambulance transport by 911 EMS offered to patient but refused. Left via private vehicle Patient leaves urgent care @ 11am en route [facility] er AAOx4, ambulatory, in no acute distress. Patient reports . documented in this encounter Plan of Treatment Date Type Specialty Care Team Description 05/19/2020 Telemedicine Visit Nephrology Lopez Hitchcock M D [address] [place] [phone] 06/02/2020 Office Visit Cardiology Rad Potts MD [address] [place] [address] 08/11/2020 Office Visit Obstetrics & QuiñonezShelia M D Gynecology [address] [facility] [address] [place], [place] [address] [phone] Health Maintenance Due Date Last Done Comments HPV VACCINES (1 - 2-dose series) 2006 PAP SMEAR 02/19/2016 INFLUENZA VACCINE (#1) 2020 02/06/2019 Depression Screening 09/01/2020 09/02/2019, 09/02/2019 DTaP,Tdap,and Td Vaccines (2 - Td) 05/21/2029 05/21/2019 PNEUMOCOCCAL 0-64 YEARS COMBINED SERIES Discontinued documented as of this encounter Results Not on filedocumented in this encounter Visit Diagnoses Diagnosis Acute nonintractable headache, unspecifi ed headache type - Primary documented in this encounter Insurance Payer Benefit Plan / Subscriber ID Effective Phone Address T ype Group Dates SAMMY BAZANINA [id number] 2019-Pres [address] B[address] Medic aid HEALTHCARE [place]CARE [place] [id number] MANAGED MEDICAID [place], [place] documented as of this encounter
--- OUTSIDE RECORDS SUMMARY | 2020-05-10 08:18 | XMS REPORT | Summary of Care ---
:1995 Author Organization [facility] - [facility] Address [address] [place] [id number] Care Team Providers Name Role Phone Jessica Baker Insurance Hmo Kassandra Dennis MD Primary Care Provider Reason for Referral ([place]) Status Reason Specialty Diagnoses / Referred By Referred To Procedures Contact Contact Authorized Location Pain Medicine Diagnoses Mid back pain Low back pain, unspecified back pain laterality, unspecified chronicity, unspecified whether sciatica present Emilie Dennis Preference Procedures CONSULT/REFERRAL PAIN CLINIC MD Thomas Garza MD [address] [place] [address] [address] ALBERT [address] [place] [address] [address] [place], [place] Phone: [phone] Phone: Reason for Visit Reason Comments Back Pain requests referral to pain karen burris, has known kidney stones Encounter Details Date Type Department Care Team Description 04/25/2020 Telemedicine Visit [facility] Family Gilberto Dennis Mid back pain (Primary Dx); Medicine - Maurice Cannon MD Low back pain, unspecified back pain lat erality, unspecified chronicity, unspecified whether sciatica present; [address] [place] [address] [phone] Allergies Active Allergy Reactions Severity Noted Date Comments Latex Rash 04/13/2020 Metoclopramide Hcl Anxiety 07/12/2019 Patient s ays she gets figity, angry and mean documented as of this encounter (statuses as of 05/01/2020) Medications Medication Sig Dispensed Refills Start Date End Date Status ALBUTEROL 90 INHALE 2 PUFFS BY 7 Each 3 05/26/2019 Suspended mcg/actuation MOUTH EVERY 6 inhalerIndications: HOURS NEEDED Asthma affecting FOR WHEEZING FOR in second SHORTNESS OF trimester BREATH Additional Information potassium citrate 10 mEq Take 1 tablet by 180 tablet 1 020 Suspended (1,080 mg) SR mouth 3 (three) tabletIndications: Pain times daily with meals. Additional Information FLUoxetine 20 mg Take 1 capsule by 30 capsule 3 03/17/2020 Suspended capsuleIndications: Depression, mouth daily. unspecified depression type, depression Additional Information metoprolol succinate XL Take 0.5 15 tablet 0 04/14/202004/27 Discontinued 25 mg 24 hr tablets by (Writte n Order) tabletIndications: mouth daily Tachycardia for 30 days. ketorolac 10 mg Take 1 15 tablet 0 04/21/2020 Queta pended tabletIndications: tablet by Right lower quadrant mouth every abdominal pain, Renal 6 (six) colic hours as needed for Pain (scale 7-10). Additional Information ondansetron 4 mg Take 1 tablet by 20 tablet 0 04/21/2020 Suspended disintegrating mouth every 8 tabletIndications: Right lower (eight) hours as quadrant abdominal pain, Renal needed for Nausea colic and Vomiting (N/V). Additional Information methocarbamoL 750 mg Take 1 tablet by 40 tablet 0 04/25/2020 Suspended tabletIndications: Mid back mouth 4 (four) pain, Low back pain, times daily as unspecified back pain needed (muscle pain laterality, unspecified or spasm). chronicity, unspecified whether sciatica present Additional Information documented as of this encounter (statuses as of 05/01/2020) Active Problems Problem Noted Date Headache 04/30/2020 Sinus tachycardia 04/13/2020 Abdominal pain 04/13/2020 Tachycardia 04/12/2020 Anxiety disorder, unspecified type 01/05/2020 Insomnia, unspecified type 01/05/2020 Other depression 08/13/2019 Cervical Papanicolaou smear negative within [facility]19/[facility] Overview: 12/2018 NIL pap , see scanned records documented as of this encounter (statuses as of 05/01/2020) Resolved Problems Problem Noted Date Resolved Date [...] as of this encounter (statuses as of 05/01/2020) Immunizations Name Administration Dates Next Due Influenza [...] been in contact with No / Unsure 04/30/2020 11:11 AM [facility] BUNNY someone who was confirmed or 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 documented as of this encounter Last Filed Vital Signs Not on filedocumented in this encounter Patient Instructions Patient InstructionsCoPaz davis MD - 04/25/2020 4:15 PM CST Patient Education Causes of Lumbar (Low Back) Pain Low back pain can be caused by problems with any part of the lumbar spine. A disk can herniate (pushout) and press on a nerve. Vertebrae can rub against each other or slip out of place. This can irritate facet joints and nerves. It can also lead to stenosis, a narrowing of the spinal canal or foramen. Pressure from a disk Constant wear and tear on a disk can cause it to weaken and push outward. Part of the disk may then press on nearby nerves. There are two common types of herniated disks: Contained means the soft nucleus is protruding outward. Extruded means the firm annulus has torn, letting the soft center squeeze through. Pressure from bone An unstable spine With age, a disk may thin and wear out. Vertebrae above and below the disk maybegin to touch. Thiscan put pressure on nerves. It can also cause bone spurs (growths) to form where the bones rub together. Stenosis results when bone spurs narrow the foramen or spinal canal. This also puts pressure on nerves. Slipping vertebrae can irritate nerves and joints. They can also worsen stenosis. In some cases, vertebrae become unstable andslip forward. This is called spondylolisthesis. Date Last Reviewed: 02/21/201519992071-9745 [employer]. [address] [place] [address], [place] [address]. All rights reserved. This information is not intended as a substitute for professional medical care. Always follow your healthcare professional's instructions. Patient Education Relieving Tension in Your Back Being relaxed helps keep your mind healthy and your back ready to move. Take short breaks often. Walk around. Stretch. Switch tasks. Also give the following a try. Make time to relax. Start by setting aside 5 minutes daily. Deep breathing Deep breathing is a simple way to reduce stress. You can do it almost any time you need to relax. Inhale slowly through your nose. Let your lungs and stomach expand. Hold your breath for 2to 3 seconds. Exhale slowly through your mouth until your lungs feel empty. Repeat 3 to 4 times. Relieve tension Muscle tension can create tender spots called trigger points. The tips below may help relieve muscletension. Press the trigger point if you can reach it. If not, lie on a soft tennis ball, or ask a friend to press the spot. Use steady pressure for 10 to 15 seconds. Breathe deeply. Repeat a few times. Massage trigger points with ice for 2 to 5 minutes. Press lightly at first. Slowly increase firmness. [employer] last reviewed this educational content on 09/10/201719994044-1438 [employer]. All rights reserved. This information is not intended as a substitute for professional medical care. Always follow your healthcare professional's instructions. ER BUNNY documented in this encounter Progress Notes Paz Dennis MD - 04/25/2020 4:15 PM CST TELEHEALTH NOTE Verbal consent obtained from Patient: Natanael Dyson due to the COVID-19 pandemic for telehealthservices provided below. Communication with patient was conducted via Video Call. Location of Patient: Home Location of Provider: Office Date of Service: 04/25/2020 CC: Chief Complaint Patient presents with Back Pain requests referral to pain management, has known kidney stones HPI Natanael Dyson is a 25 year old F who participated in a Telehealth visit today for a referral. She requests a referral to a energy efficiency specialist due to mid and lower back pain that has been ongoing the past few weeks. The pain is severe often times and affects her quality of life. Can't take care of her small child due to her pain level. Movement makes it worse. Cyclobenzaprine and Tylenol aren't helpful. Can't take NSAIDs due to renal dysfunction (followed by Nephrology). Says she needs help managing her pain and she is even open to surgical procedures if it definitively treats her condition. Has known kidney stones but was told no intervention is needed given they are nonobstructive. The patient feel confused because she says she was told at a recent ER visit that the kidney stones could very well be the cause of her pain but she also may have "a back problem". Allergies Allergen Reactions Latex Rash Reglan [Metoclopramide Hcl] Anxiety Patient says she gets figity, angry and mean Current Outpatient Medications: ketorolac 10 mg tablet, Take 1 tablet by mouth every 6 (six) hours as needed for Pain (scale 7-10)., Disp: 15 tablet, Rfl: 0 ondansetron 4 mg disintegrating tablet, Take 1 tablet by mouth every 8 (eight) hours as needed for Nausea and Vomiting (N/V)., Disp: 20 tablet, Rfl: 0 metoprolol succinate XL 25 mg 24 hr [...] N/A 07/21/2019 Surgeon: Shelia Quiñonez MD; Location: [facility] Location TUBAL LIGATION N/A 07/21/2019 Surgeon: Shelia Quiñonez MD; Location: [facility] Location Family [...] file Gets together: Not on file Attends taoist service: Not on file Active member of [...] Negative. HENT: Negative. Eyes: Negative. Respiratory: Negative. Cardiovascular: Negative. Gastrointestinal: Negative. Genitourinary: Positive for flank pain. Musculoskeletal: Positive for back pain. Skin: Negative. Neurological: Negative. Psychiatric/Behavioral: Negative. Endocrine: Endocrine negative Vital signs There were no vitals taken for this visit. Physical Exam Constitutional: She is oriented to person, place, and time. She appears well- developed and well-nourished. No distress. Pulmonary/Chest: No stridor. No audible adventitious breath sounds or visible respiratory distress Neurological: She is alert and oriented to person, place, and time. Skin: No rash noted. No pallor. Psychiatric: She has a normal mood and affect. Her speech is normal and behavior is normal. Judgmentand thought content normal. Cognition and memory are normal. Labs Admission on 04/21/2020, Discharged on 04/21/2020 Component Date Value NA 04/21/2020 139 K 04/21/2020 4.0 CL 04/21/2020 107 CO2 TOTAL 04/21/2020 23 AGAP 04/21/2020 9 BUN 04/21/2020 14 GLUCOSE 04/21/2020 109 CREATININE 04/21/2020 0.89 TOTAL BILI 04/21/2020 0.5 CALCIUM 04/21/2020 8.6 T PROTEIN 04/21/2020 7.2 ALBUMIN 04/21/2020 4.2 ALK PHOS 04/21/2020 78 ALTv 04/21/2020 26 AST(SGOT) 04/21/2020 25 eGFR Calculation (Non-Af* 04/21/2020 77.3 eGFR Calculation (Justine* 04/21/2020 93.7 WBC 04/21/2020 7.94 RBC 04/21/2020 4.30 HGB 04/21/2020 12.2 HCT 04/21/2020 37.3 MCV 04/21/2020 86.7 MCH 04/21/2020 28.4 MCHC 04/21/2020 32.7 RDW-SD 04/21/2020 45.7 RDW-CV 04/21/2020 14.5 PLT 04/21/2020 428* MPV 04/21/2020 9.5 NRBC/100 WBC 04/21/2020 0.0 NRBC x10^3 04/21/2020 <0.01 GRAN MAT (NEUT) % 04/21/2020 60.6 IMM GRAN % 04/21/2020 0.40 LYMPH % 04/21/2020 29.7 MONO % 04/21/2020 4.3 EOS % 04/21/2020 4.2 BASO % 04/21/2020 0.8 GRAN MAT x10^3(ANC) 04/21/2020 4.82 IMM GRAN x10^3 04/21/2020 0.03 LYMPH x10^3 04/21/2020 2.36 MONO x10^3 04/21/2020 0.34 EOS x10^3 04/21/2020 0.33 BASO x10^3 04/21/2020 0.06 LIPASE 04/21/2020 104 APPEARANCE 04/21/2020 Hazy* COLOR 04/21/2020 Yellow PH 04/21/2020 7.0 SP GRAVITY 04/21/2020 1.025 GLU U QUAL 04/21/2020 Normal BLOOD 04/21/2020 Negative KETONES 04/21/2020 Negative PROTEIN 04/21/2020 Negative UROBILIN 04/21/2020 2.0 mg/dL* BILIRUBIN 04/21/2020 Negative NITRITE 04/21/2020 Negative LEUK ANJELICA 04/21/2020 Negative RBC/HPF 04/21/2020 2 WBC/HPF 04/21/2020 1 BACTERIA 04/21/2020 Negative MUCOUS 04/21/2020 Slight* SQ EPITH 04/21/2020 6 POCT PREG 04/21/2020 Negative On board controls accept* 04/21/2020 Yes POCT PREG LOT # 04/21/2020 [id number] POCT PREG TEST DA* 04/21/2020 01/10/2022 Office Visit on 04/18/2020 Component Date Value POCT U SP GRAV 04/18/2020 1.015 POCT PH U 04/18/2020 6.0 POCT U LEUK EST 04/18/2020 Negative POCT U NIT 04/18/2020 Negative POCT U PROT 04/18/2020 Negative POCT U GLU 04/18/2020 Negative POCT U KETONE 04/18/2020 Negative POCT U UROBILI 04/18/2020 0.2 POCT U BILI 04/18/2020 Negative POCT U BLD 04/18/2020 Negative POCT U COLOR 04/18/2020 yellow POCT U APPEAR 04/18/2020 clear Admission on 04/12/2020, Discharged on 04/13/2020 Component [...] 04/12/2020 Present POCT PREG LOT # 04/12/2020 [id number] POCT PREG TEST DA* 04/12/2020 09/09/2021 MAGNESIUM [...] SARS-CoV-2 Rapid ID NOW 04/12/2020 Not Detected COVID DMT Interpretation 04/12/2020 Value:Interpretation/Recommendations: Molecular NAAT Tests for Active Infection with the SARS-CoV-2 Virus: This patient has a history of testing negative on multiple occasions for the SARS-CoV-2 virus that causes COVID-19 illness. The current test results are also negative. This most likely indicates that the patient does not have an active infection with the SARS-CoV-2 virus, especially if all of these tests coincide with the patient's current presentation. However, infection is not completely ruled out as the false negative rate for molecular NAAT testing using a nasopharyngeal sample can be up to 30%,mostly dependent on the timing of sample collection in relation to illness onset and any deficiencies in sampling techniques. If the patient continues to have persistent or worsening symptoms concerning for COVID-19 illness, a repeat NAAT test (PCR, Rapid ID Now, etc.) should be performed, at which time the SARS-CoV-2 virus - if present - may have reached a detectable viral load (usually peaking by the end of the first week of symptoms). Tests for IgM and/or IgG Antibodies to SARS-CoV-2 Virus: Testing for IgM and IgG antibodies 1-3 weeks after illness onset will indicate whether the patient has produced antibodies to the virus. At this time, it is not known if the production of antibodies - specifically IgG antibodies - indicates whether the patient is immune to future infections with the SARS-CoV-2 virus. Interpretation Result Comments: These interpretation comments are based upon aggregate COVID-19 test results pooled from [facility]. They apply to the following tests offered at [facility] and assume the acceptable specimen type(s) were used: A. Tests for the Identification of SARS-CoV-2 RNA (Molecular NAAT Tests): - SARS-CoV-2 PCR assays including [place] Aptima, [place] Fusion, [employer]ina RealTime, and [employer] Xpert Xpress. - SARS-CoV-2 Rapid ID NOW by the ID NOW assay. B. Tests for the Identification of SARS-CoV-2 Antibodies: - Chemiluminescent immunoassays including Access SARS-CoV-2 IgM (DXI 600), [employer] Hwiv-CPEI-NvH-2 IgG (Vitros 5600 and Vitros 3600), and Mina SARS-CoV-2 IgG (NEWSPAPER DEL[employer] I System). These interpretations are autopopulated into [facility] based on computerized algorithms matching an interpretation code to the patient's set of test results, and a clinical pathologist evaluates the comments for accuracy. However, these comments do not consider testing a patient may have had outside of the[facility] system. If results for COVID-19 infection continue to be negative in the context of a suspectedviral respiratory illness, it is possible the patient may have an infection with another respiratoryvirus. Influenza testing and a respiratory pathogen panel if clinically indicated may be beneficial in this setting. If there continues to be a high degree of clinical suspicion for COVID-19 illness despite multiple negative tests on nasopharyngeal specimens, then it may be necessary to test the patient for the SARS-CoV-2 virus using lower respiratory tract samples (such as sputum, bronchoalveolar lavage fluid (BAL), tracheal aspirate, etc.). COVID Results 04/12/2020 Value:SARS-CoV-2 NAAT (no units) Date Value 02/03/2020 Not Detected 11/25/2019 Not Detected SARS-CoV-2 Rapid ID NOW (no units) Date Value 04/12/2020 Not Detected 03/09/2020 Not Detected WBC 04/13/2020 8.78 RBC 04/13/2020 [...] study and agree with the above report. Ct Abdomen Pelvis W Contrast Result Date: 04/21/2020 1. Normal appendix. 2. Nonobstructive right nephrolithiasis. 3. Mild right collecting system fullness is slightly more prominent on most recent prior exam but essentially unchanged when comparing toexam from November 2019. No obstructing radiopaque ureteral calculus. No appreciable periureteral stranding. Findings are nonspecific and may be related to recently passed calculus. Correlate clinically and consider checking UA. 4. Additional findings and incidentals as above. Xr Kub Result Date: 04/12/2020 Nonobstructive bowel gas pattern. Preliminary Report Dictated by Resident: Adrian Allred MD., have reviewed this study and agree with the above report. ASSESSMENT/PLAN Diagnoses and all orders for this visit: Mid back pain; Low back pain, unspecified back pain laterality, unspecified chronicity, unspecified whether sciatica present We discussed the Ddx of the patient's pain. Imaging was recommended for further evaluation. Ice alt with/OR heat can be applied to painful areas (cautiously or avoid if diabetic). Tylenol Arthritis formula can be used PRN pain. Additional medications were prescribed as listed below (muscle relaxant). I recommended or the patient requested evaluation and management by a energy efficiency specialist and a referral was initiated. - methocarbamoL 750 mg tablet; Take 1 tablet by mouth 4 (four) times daily as needed (muscle pain or spasm). - XR LUMBAR SPINE 4 VW; Future - XR SPINE THORACIC 2 VW; Future - CONSULT/REFERRAL PAIN CLINIC Kidney stones Management per Urology. Follow-up with this specialist as scheduled/planned. Plan of care, desired health behaviors, goals, Ddx, and any prescribed medications were discussed with the patient. Education resources and self- management tools were provided in the After Visit Summary (AVS) which is accessible through [employer]. A total of 25 minutes was spent on the Video Call, chart review, and coordination of care with specialists. Patient/guardian/family verbalized understanding and agrees to the plan of care. Barriers to care: None. Ability to manage care: Good. Advanced care planning (living will) information was not given/offered to the patient to review for discussion at a future visit. If applicable, the [place] [employer] database was accessed to review any controlled substance prescription claims data. If the patient is taking prescribed medications, the [employer] prescription claims data in [employer] was reviewed to assess patient compliance with the medication treatment plan. Follow-up: Return if symptoms worsen or fail to improve. Return for routine care as scheduled or previously advised. ER BUNNY documented in this encounter Plan of Treatment Date Type Specialty Care Team Description 05/19/2020 Telemedicine Visit Nephrology Lopez Hitchcock M D [address] [place] [phone] 06/02/2020 Office Visit Cardiology Rad Potts MD [address] [place] [address] 08/11/2020 Office Visit Obstetrics & Quiñonez, Munir Johnson Gynecology [address] [facility] [address] [place], [place] [address] Name Type Priority Associated Diagnoses Order S chedule XR LUMBAR SPINE 4 VW IMAGING Routine Mid back pa in Expected: 04/25/2020, Low back pain, Expires: 04/12 unspecified back pain laterality, unspecified chronicity, unspecified whether sciatica present XR SPINE THORACIC 2 VW IMAGING Routine Mid back pain Expected: 04/25/2020, Low back pain, Expires: 04/12 unspecified back pain laterality, unspecified chronicity, unspecified whether sciatica present Health Maintenance Due Date Last Done Comments HPV VACCINES (1 - 2-dose series) 2006 PAP SMEAR 02/19/2016 INFLUENZA VACCINE (#1) 2020 02/06/2019 Depression Screening 09/01/2020 09/02/2019, 09/02/2019 DTaP,Tdap,and Td Vaccines (2 - Td) 05/21/2029 05/21/2019 PNEUMOCOCCAL 0-64 YEARS COMBINED SERIES Discontinued documented as of this encounter Results Not on filedocumented in this encounter Visit Diagnoses Diagnosis Mid back pain - Primary Backache, unspecified Low back pain, unspecified back pain lat erality, unspecified chronicity, unspecified whether sciatica present Kidney stones Calculus of kidney documented in this encounter Insurance Payer Benefit Plan / Subscriber ID Effective Phone Address T ype Group Dates SAMMY CHRISTIANSON [id number] 2019-Pres [address] Medic aid [employer]ALTHCARE - HEALTHCARE ent [id number] MANAGED MEDICAID [place], MEDICAID [place] documented as of this encounter
--- OUTSIDE RECORDS SUMMARY | 2020-05-10 08:19 | XMS REPORT | Summary of Care ---
:1995 Author Organization [facility] - [facility] Address [address] [place] [address] Care Team Providers Name Role Phone Jessica Baker Insurance Hmo Kassandra Dennis MD Primary Care Provider Reason for Referral MRI/CAT Scan ([place]) Status Reason Specialty Diagnoses / Referred By Referred To Procedures Contact Contact New Request Diagnostic Diagnoses Acute intractable headache, unspecified headache type Milind Garcia, Radiology Procedures CT ANGIOGRAM HEAD CT HEAD W CONTRAST CT ANGIOGRAM HEAD MD Kye [address] [place] [address]. [place] [address] MRI/CAT Scan ([place]) Status Reason Specialty Diagnoses / Referred By Referred To Procedures Contact Contact New Request Diagnostic Diagnoses Acute intractable headache, unspecified headache type Mark, Rodriguez Radiology Procedures MR BRAIN W WO CONTRAST MD Douglas [address] [place] [phone] MRI/CAT Scan ([place]) Status Reason Specialty Diagnoses / Referred By Referred To Procedures Contact Contact New Request Diagnostic Diagnoses Acute intractable headache, unspecified headache type Mark, Rodriguez Radiology Procedures CT ANGIOGRAM NECK MD Douglas [address] [place] [address] MRI/CAT Scan ([place]) Status Reason Specialty Diagnoses / Referred By Referred To Procedures Contact Contact New Request Diagnostic Diagnoses Acute intractable headache, unspecified headache type Mark, Rodriguez Radiology Procedures CT ANGIOGRAM HEAD MD Douglas [address] [place] [address] Reason for Visit Reason Comments Headache Auth/Cert Status Reason Specialty Diagnoses / Referred By Referred To Procedures Contact Contact Emergency Medicine [facility] ergency Dept [address] [place] [address] Fax: Encounter Details Date Type Department Care Team Description 04/30/2020 - Hospital Encounter Surgery ([facility] 9C) Lianne Hogan, PAC [address] [facility] [place] [address] [phone] Headache 05/01/2020 7[address] [facility] Rodriguez Mark MD [address] [place] [id number] [place] [phone] Allergies Active Allergy Reactions Severity Noted Date Comments Latex Rash 04/13/2020 Metoclopramide Hcl Anxiety 07/12/2019 Patient s ays she gets figity, angry and mean documented as of this encounter (statuses as of 05/01/2020) Medications Medication Sig Dispensed Refills Start Date End Date Status ALBUTEROL 90 INHALE 2 PUFFS 7 Each 3 05/26/2019 D iscontinued mcg/actuation BY MOUTH EVERY 0 inhalerIndications: 6 HOURS Asthma affecting NEEDED FOR in second WHEEZING FOR trimester SHORTNESS OF BREATH potassium citrate 10 Take 1 tablet 180 tablet 1 01/14/2020 Discontinued mEq (1,080 mg) SR by mouth 3 0 tabletIndications: (three) times Pain daily with meals. FLUoxetine 20 mg Take 1 capsule 30 capsule 3 03/17/2020 Discontinued capsuleIndications: by mouth 0 Depression, daily. unspecified depression type, depression ketorolac 10 mg Take 1 tablet 15 tablet 0 04/21/2020 Discontinued tabletIndications: by mouth every 0 Right lower quadrant 6 (six) hours abdominal pain, as needed for Renal colic Pain (scale 7-10). ondansetron 4 mg Take 1 tablet 20 tablet 0 04/21/2020 05/01/20 2 Discontinued disintegrating by mouth every 0 tabletIndications: 8 (eight) Right lower quadrant hours as abdominal pain, needed for Renal colic Nausea and Vomiting (N/V). methocarbamoL 750 mg Take 1 tablet 40 tablet 0 04/25/202004/13 Discontinued tabletIndications: by mouth 4 0 Mid back pain, Low (four) times back pain, daily as unspecified back needed (muscle pain laterality, pain or unspecified spasm). chronicity, unspecified whether sciatica present nadoloL 20 mg tablet Take 1 tablet 30 tablet 3 04/27/202004/13 Discontinued by mouth 0 daily. documented as of this encounter (statuses [...] 07/21/2019 39 weeks gestation of 05/29/2019 05/30/19 Threatened labor, third trimester 05/28/2019 07/21/2019 uterine [...] with No / Unsure 04/30/2020 11:11 AM MANAGER INDUSTRIAL someone who was confirmed or 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 documented as of this encounter Last Filed Vital Signs Vital Sign Reading Time Taken Comments Blood Pressure 112/75 05/01/2020 11:32 AM MANAGER INDUSTRIAL Pulse 84 05/01/2020 11:32 AM MANAGER INDUSTRIAL Temperature 36.6 C (97.8 F) 04/30/2020 11:15 PM MANAGER INDUSTRIAL Respiratory Rate 16 05/01/2020 11:32 AM MANAGER INDUSTRIAL Oxygen Saturation 99% 05/01/2020 11:32 AM MANAGER INDUSTRIAL Inhaled Oxygen Concentration - - Weight 59.9 kg (132 lb) 04/30/2020 11:12 AM MANAGER INDUSTRIAL Height - - Body Mass Index 24.14 04/30/2020 10:33 AM MANAGER INDUSTRIAL documented in this encounter ED Notes Rose Bowman RN - 04/30/2020 1:21 PM CSTReport given to Masha CURRIE GER INDUSTRIAL Pattie Galvan RN - 04/30/2020 11:11 AM CSTPatient c/o headache and blurred vision. Recent change to BP meds 4 days ago. Lianne Faith PAC - 04/30/2020 11:05 AM CST [facility] Emergency Department Note Patient Name: Natanael Dyson Date of : 1995 25 year old female Treatment Room: Room/bed info not found Primary Care Physician: Paz Dennis Patient Escorted by: Self [9] Mode of [...] Chief Complaint: Chief Complaint Patient presents with Headache History of Present Illness: Triage note: "Patient c/o headache and blurred vision. Recent change to BP meds 4 days ago." The patient presents for evaluation of a headache that she has had for 3-4 days and has progressively worsened. She said that she has a history of migraines but this is worse than she usually has. She has also developed blurred vision x 2 days which she has never experienced. She was here a few days ago for a hand injury and had a headache at that time. She reports that Esgic helped her symptoms thatday but the headache didn't completely resolve. She denies loss of consciousness, seizure, chest pain, SOB, abdominal pain, dysuria, fever, neck pain. She has had nausea and vomiting today. Patient also has a history of tachycardia which she takes medication for, and she reports that it was changed 4 days ago. The headache started a little later that day she thinks. Past Medical History/Immunizations: Past Medical History: Diagnosis [...] report Tetanus received in last 5 years: No Childhood immunizations: Up-to-date Allergies: Allergies Allergen Reactions Latex Rash Reglan [Metoclopramide [...] N/A 07/21/2019 Surgeon: Shelia Quiñonez MD; Location: [facility] Labor and Delivery OR Location TUBAL LIGATION N/A 07/21/2019 Surgeon: Shelia Quiñonez MD; Location: [facility] Labor and Delivery OR Location Review of Systems: Review of Systems Constitutional: Negative. HENT: Negative. Eyes: Positive for photophobia and visual disturbance. Respiratory: Negative. Cardiovascular: Negative. Gastrointestinal: Positive for nausea and vomiting. Genitourinary: Negative. Musculoskeletal: Negative. Skin: Negative. Neurological: Positive for headaches. Psychiatric/Behavioral: Negative. Physical Exam: ED Triage Vitals [04/30/20 1112] Weight 59.9 kg (132 lb) Actual or estimated Height BP (!) 155/92 Pulse 71 Resp 18 Temp 36.2 C (97.2 F) Temp source Oral SpO2 100 % Measured on Room air Physical Exam Vitals signs and nursing note reviewed. Constitutional: General: She is in acute distress (sitting in dark room holding hand over eyes in acute pain). Appearance: Normal appearance. She is well-developed. She is not ill- appearing, toxic-appearing or diaphoretic. HENT: Head: Normocephalic and atraumatic. Eyes: General: Visual field deficit present. Conjunctiva/sclera: Conjunctivae normal. Visual Girard: Right eye visual girard normal. Comments: Left temporal visual field completely absent but superior/inferior/nasal girard intact Right visual girard intact Bilateral eyes gross vision intact to counting fingers Neck: Musculoskeletal: Normal range of motion and neck supple. Normal range of motion. No neck rigidity, pain with movement, spinous process tenderness or muscular tenderness. Meningeal: Brudzinski's sign and Kernig's sign absent. Cardiovascular: Rate and Rhythm: Normal rate and regular rhythm. Heart sounds: Normal heart sounds. No murmur. No friction rub. No gallop. Pulmonary: Effort: Pulmonary effort is normal. No respiratory distress. Breath sounds: Normal breath sounds. No stridor. No wheezing, rhonchi or rales. Skin: General: Skin is warm and dry. Neurological: General: No focal deficit present. Mental Status: She is alert and oriented to person, place, and time. Psychiatric: Mood and Affect: Mood normal. Behavior: Behavior normal. Thought Content: Thought content normal. Judgment: Judgment normal. Radiology: No results found for this visit on 04/30/20. Lab Results (24h): Recent Results (from the past 24 hour(s)) COVID-19 (ID NOW RAPID TESTING) Collection Time: 04/30/20 11:58 AM Specimen: NASOPHARYNGEAL SWAB Result Value Ref Range SARS-CoV-2 Rapid ID NOW Not Detected Not Detected CBC WITH DIFF Collection Time: 04/30/20 11:58 AM Result Value Ref Range WBC 7.90 4.30 - 11.10 10*3/L RBC 4.63 3.93 - 5.25 10*6/L HGB 13.3 11.6 - 15.0 g/dL HCT 40.4 35.7 - 45.2 % MCV 87.3 80.6 - 95.5 fL MCH 28.7 25.9 - 32.8 pg MCHC 32.9 31.6 - 35.1 g/dL RDW-SD 46.9 39.0 - 49.9 fL RDW-CV 14.8 12.0 - 15.5 % PLT 467 (H) 166 - 358 10*3/L MPV 9.8 9.5 - 12.9 fL NRBC/100 WBC 0.0 0.0 - 10.0 /100 WBCs NRBC x10^3 <0.01 10*3/L GRAN MAT (NEUT) % 49.5 % IMM GRAN % 0.40 % LYMPH % 39.5 % MONO % 4.9 % EOS % 5.1 % BASO % 0.6 % GRAN MAT x10^3(ANC) 3.91 1.88 - 7.09 10*3/uL IMM GRAN x10^3 0.03 0.00 - 0.06 10*3/uL LYMPH x10^3 3.12 1.32 - 3.29 10*3/uL MONO x10^3 0.39 0.33 - 0.92 10*3/uL EOS x10^3 0.40 (H) 0.03 - 0.39 10*3/uL BASO x10^3 0.05 0.01 - 0.07 10*3/uL POCT TEST Collection Time: 04/30/20 12:11 PM Result Value Ref Range POCT PREG negative On board controls acceptable with C Line present POCT PREG LOT # [id number] POCT PREG TEST DATE 08/10/2021 BASIC METABOLIC PANEL (NA, K, CL, CO2, GLUCOSE, BUN, CREATININE, CA) Collection Time: 04/30/20 1:04 PM Result Value Ref Range NA 140 135 - 145 mmol/L K 3.8 3.5 - 5.0 mmol/L CL 110 (H) 98 - 108 mmol/L CO2 TOTAL 20 (L) 23 - 31 mmol/L AGAP 10 2 - 16 BUN 13 7 - 23 mg/dL GLUCOSE 78 70 - 110 mg/dL CREATININE 0.67 0.50 - 1.04 mg/dL CALCIUM 8.9 8.6 - 10.6 mg/dL eGFR Calculation (Non-) 107.2 mL/min/1.73m2 eGFR Calculation () 130.0 mL/min/1.73m2 Magnesium Serum Collection Time: 04/30/20 6:44 PM Result Value Ref Range MAGNESIUM 1.6 (L) 1.7 - 2.4 mg/dL Orders and Treatments: Orders Placed This Encounter Procedures COVID-19 (ID NOW RAPID TESTING) CBC WITH DIFF BASIC METABOLIC PANEL (NA, K, CL, CO2, GLUCOSE, BUN, CREATININE, CA) POCT TEST LAB ONLY COVID INTERPRETATION Orders Placed This Encounter Medications lauqgzpjaa-duwzzulertazc-rxta (ESGIC) 50-325-40 mg tablet 1 tablet NaCl 0.9% (NS) bolus infusion 1,000 mL ondansetron (ZOFRAN (PF)) injection 4 mg DISCONTD: proMETHazine (PHENERGAN) 25 mg in NaCl 0.9% (NS) 50 mL piggyback methylprednisolone sod succ (SOLU-MEDROL) injection 125 mg diphenhydrAMINE (BENADRYL) injection 25 mg metoclopramide HCl (REGLAN) injection 10 mg ED COURSE ED Course as of Apr 30 2243 Sat Apr 30, 2020 1216 Discussed patient with neurology bail bondsman for [facility] Lisa, Dr. Mark who recommended transferof the patient for further evaluation including CT since our CT machine not functional currently at [facility]. [TF] ED Course User Index [TF] Lianne Hogan PAC MDM: Coding Scoring Tools: No data recorded Diagnosis/Impression: ICD-10-CM ICD-9-CM 1. Acute intractable headache, unspecified headache type R51.9 784.0 2. Visual field defect H53.40 368.40 Disposition/Condition: ED Disposition ED Disposition Condition Comment Transfer - [facility] to IP/Obs Discharge Medications: Current Discharge Medication List STOP taking these medications nadoloL 20 mg tablet Comments: Reason for Stopping: methocarbamoL 750 mg tablet Comments: Reason for Stopping: ketorolac 10 mg tablet Comments: Reason for Stopping: ondansetron 4 mg disintegrating tablet Comments: Reason for Stopping: FLUoxetine 20 mg capsule Comments: Reason for Stopping: potassium citrate 10 mEq (1,080 mg) SR tablet Comments: Reason for Stopping: ALBUTEROL 90 mcg/actuation inhaler Comments: Reason for Stopping: Follow-up: Electronically signed by: ADRIEL Smallwood 04/30/2020 11:12 AM GER INDUSTRIAL Associated attestation - Kye [place] MD - 05/01/2020 7:18 AM CSTOn the date of service, I reviewed the patients history, exam findings, diagnostic and any interventions or procedures in detail of the assigned advance practice provider and was available for consultation. Kye [place] Jr., MD Clinical Swimming Pool Salesperson [facility] Emergency Department documented in this encounter Miscellaneous Notes Nursing Note - Masha Prakash RN - 05/01/2020 3:38 PM CSTPt. Has had a conservation with the bail bondsman neurologist in re: to not have BS. LP. MD discussed fluoroscopy LP. However, Pt. Did not realize the procedure would not be completed today. She does not want to wait for the fluoroscopy LP nor does she want bedside LP. Pt had an epidural in the past and"it took the doctors 6 times to get the right spot." Pt. Plan is to get a neurologist in her hometown to imitate and follow up a POC. Pt. Left amb. NAD. Family en route to pick her up. GER INDUSTRIAL Care Plan - Raul [place] RN - 04/30/2020 8:32 PM MANAGER INDUSTRIAL Problem: Procedure Routine Goal: Knowledge of procedure Outcome: Progressing as expected Problem: Pain Goal: Control of pain at or below patient's documented comfort goal Outcome: Progressing as expected Goal: Reduction in pain sensation Outcome: Progressing as expected Problem: Discharge Planning Goal: Absence of venous thromboembolism Outcome: Progressing as expected Goal: Adequate for discharge Outcome: Progressing as expected Goal: Effective communication Outcome: Progressing as expected Problem: Falls, Risk of Goal: Absence of falls Outcome: Progressing as expected D Nurse Note - Rose Bowman RN - 04/30/2020 1:25 PM CSTPatient [facility] Acute intractable headache, unspecified headache type, visual field defect. Patient agrees to transfer/admit plan and verbalized understanding of plan of care, family aware of plan Patient awake alert, oriented, resp reg unlabored, skin w/d PIV patent, no s/s infiltration noted, No adverse reaction to medications given while in ED. Report given to [facility] ambulance EMS personnel D Nurse Note - Pattie Galvan RN - 04/30/2020 12:42 [facility] 20-25 min. documented in this encounter Plan of Treatment Date Type Specialty Care Team Description 05/19/2020 Telemedicine Visit Nephrology Lopez Hitchcock M D [address] [place] [phone] 06/02/2020 Office Visit Cardiology Rad Potts MD [address] [place] [address] 08/11/2020 Office Visit Obstetrics & Quiñonez, Munir Johnson Gynecology [address] [facility] [address] [place], [place] [address] Name Type Priority Associated Diagnoses Date/Ti me LAB ONLY COVID LAB Routine Acute intractable 04/30/20 11:58 AM INTERPRETATION headache, unspecified MANAGER INDUSTRIAL headache type Visual field defect Name Type Priority Associated Diagnoses Order S chedule LAB ONLY COVID LAB Routine Acute intractable ONCE for 1 Occurrences INTERPRETATION headache, unspecified star ting 04/30/2020 headache type until 04/30/2020 Visual field defect Health Maintenance Due Date Last Done Comments HPV VACCINES (1 - 2-dose series) 2006 PAP SMEAR 02/19/2016 INFLUENZA VACCINE (#1) 2020 02/06/2019 Depression Screening 09/01/2020 09/02/2019, 09/02/2019 DTaP,Tdap,and Td Vaccines (2 - Td) 05/21/2029 05/21/2019 PNEUMOCOCCAL 0-64 YEARS COMBINED SERIES Discontinued documented as of this encounter Procedures Procedure Name Priority Date/Time Associated Diagnosis Comme nts MR BRAIN W WO [place] 05/01/2020 9:06 AM Acute intractable Re sults for this CONTRAST MANAGER INDUSTRIAL headache, procedure are i n unspecified headache the res ults type section. MAGNESIUM Routine 04/30/2020 6:44 PM Results for this MANAGER INDUSTRIAL procedure are i n the results section. CT ANGIOGRAM NECK [place] 04/30/2020 6:21 PM Acute intractabl e Results for this MANAGER INDUSTRIAL headache, procedure are i n unspecified headache the res ults type section. CT ANGIOGRAM HEAD [place] 04/30/2020 6:21 PM Acute intractabl e Results for this MANAGER INDUSTRIAL headache, procedure are i n unspecified headache the res ults type section. CT ANGIOGRAM HEAD [place] 04/30/2020 6:21 PM Acute intractabl e Results for this MANAGER INDUSTRIAL headache, procedure are i n unspecified headache the res ults type section. BASIC METABOLIC STAT 04/30/2020 1:04 PM Acute intractable Results for this PANEL (NA, K, CL, MANAGER INDUSTRIAL headache, procedure are in CO2, GLUCOSE, BUN, unspecified headache t he results CREATININE, CA) type section. Visual field defect POCT TEST [place] 04/30/2020 12:11 PM Acute intracta ble Results for this MANAGER INDUSTRIAL headache, procedure are i n unspecified headache the res ults type section. Visual field defect COVID-19 (ID NOW STAT 04/30/2020 11:58 AM Acute intractable Results for this RAPID TESTING) MANAGER INDUSTRIAL headache, procedure are in unspecified headache the res ults type section. Visual field defect CBC WITH DIFF STAT 04/30/2020 11:58 AM Acute intractable Re sults for this MANAGER INDUSTRIAL headache, procedure are i n unspecified headache the res ults type section. Visual field defect CONSENT/REFUSAL FOR Routine 04/30/2020 11:04 AM DIAGNOSIS AND MANAGER INDUSTRIAL TREATMENT documented in this encounter Results MR BRAIN W WO CONTRAST (05/01/2020 9:06 AM MANAGER INDUSTRIAL) Specimen Impressions Performed At PACS/VR/DOSE Normal MRI of the brain. Narrative Performed At This result has an attachment that is no t available. MR BRAIN W WO CONTRAST PACS/VR/DOSE COMPARISON: Reference to CT head on 04/30/2020 HISTORY: Headache, acute, normal neuro exam TECHNIQUE: Multisequence multiplanar MR images of the brain were obtained before and after administration of IV contrast. FINDINGS: The ventricles and cerebral sulci are normal in calibe r and configuration. No midline shift, hydrocephalus or pathological extra- axial fluid collection is present. The basal cisterns are unremark able. No restricted diffusion is present to suggest acute in farct. No abnormal parenchymal signal abnormality is present. No abnormal gradient blooming. No abnormal parenchymal enhancement. The T2 flow voids for the major intracranial vessels a re unremarkable. No abnormal fluid signal is present in the mastoid air ce lls or paranasal air sinuses. Procedure Note [facility], Radiant Results Inft User - 2019 2:53 PM MANAGER INDUSTRIAL MR BRAIN W WO CONTRAST COMPARISON: Reference to CT head on 04/12 HISTORY: Headache, acute, normal neuro e xam TECHNIQUE: Multisequence multiplanar MR images of the brain were obtained before and after administration of IV co ntrast. FINDINGS: The ventricles and cerebral sulci are no rmal in caliber and configuration. No midline shift, hydrocephalus or patho logical extra-axial fluid collection is present. The basal cistern s are unremarkable. No restricted diffusion is present to monae ggest acute infarct. No abnormal parenchymal signal abnormality is presen t. No abnormal gradient blooming. No abnormal parenchymal enhancement. The T2 flow voids for the major intracra nial vessels are unremarkable. No abnormal fluid signal is present in the mastoid air cells or paranasal air sinuses. IMPRESSION Normal MRI of the brain. Performing Organization Address City/[facility]/Zipcode Phone Number PACS/VR/DOSE Magnesium Serum (04/30/2020 6:44 PM MANAGER INDUSTRIAL) [facility] Sig [facility] MAGNESIUM 1.6 (L) 1.7 - 2.4 mg/dL [facility] Specimen Blood - VENOUS Performing Organization Address City/[facility]/Zipcode Phone Number [facility] CLIA: [id number] [place] [address] [place] [address] CT ANGIOGRAM HEAD (04/30/2020 6:21 PM MANAGER INDUSTRIAL) Specimen Narrative Performed At This result has an attachment that is no t available. Please see neck CTA for CT venogram report. PACS/VR/DOSE Note that brain CTA was either not performed or not up loaded and the performing technologist could not be reached at the ti me of dictation. Once the exam is made available, an addendum may be created . Procedure Note [facility], Radiant Results Inft User - 2019 11:57 PM MANAGER INDUSTRIAL Please see neck CTA for CT venogram report. Note that brain CTA was either not perfo rmed or not uploaded and the performing technologist could not be alberto ched at the time of dictation. Once the exam is made available, an addendum may be created. Performing Organization Address City/[facility]/Zipcode Phone Number PACS/VR/DOSE CT ANGIOGRAM NECK (04/30/2020 6:21 PM MANAGER INDUSTRIAL) Specimen Impressions Performed At PACS/VR/DOSE Patent dural venous sinuses. No acute vascular findings within the ne ck. Narrative Performed At This result has an attachment that is no t available. CT ANGIOGRAM HEAD, CT ANGIOGRAM NECK PACS/VR/DOSE HISTORY: Female 25 years headache COMPARISON: None TECHNIQUE: CT venographic images of the head and neck were obtained after administration of IV contrast. Neck CTA was also perfo rmed. Multiplanar reformats including maximum intensity projection image s submitted for review. CTV: No filling defects are identified within the dural ve nous sinuses. The superior sagittal sinus, transverse sinuses, jugular b ulbs, and proximal internal jugular veins are widely patent. Deep cerebra l veins are within normal limits. The visualized cortical veins are withi n normal limits. Visualized portion of the arterial tree is grossly wit hout abnormality. NECK CTA: Classic three-vessel arch anatomy identified. The gr eat vessel ostia are patent. The subclavian arteries demonstrate normal contrast op acification. There is normal opacification of the common carotid ar teries and cervical courses of the bilateral internal carotid arteries. The vertebral artery ostia patent. No flow-limiting st enosis is identified within the cervical segments. The visualized lung girard are unremarkable. Procedure Note [facility], Radiant Results Inft User - 2019 11:[address] ANGIOGRAM HEAD, CT ANGIOGRAM NECK HISTORY: Female 25 years headache COMPARISON: None TECHNIQUE: CT venographic images of the head and neck were obtained after administration of IV contrast. Neck CTA was also performed. Multiplanar reformats including maximum intensity pr ojection images submitted for review. CTV: No filling defects are identified withi n the dural venous sinuses. The superior sagittal sinus, transverse sinu ses, jugular bulbs, and proximal internal jugular veins are widely patent . Deep cerebral veins are within normal limits. The visualized cortical v eins are within normal limits. Visualized portion of the arterial tree is grossly without abnormality. NECK CTA: Classic three-vessel arch anatomy identi fied. The great vessel ostia are patent. The subclavian arteries demonstrate norm al contrast opacification. There is normal opacification of the com mon carotid arteries and cervical courses of the bilateral internal caroti d arteries. The vertebral artery ostia patent. No fl ow-limiting stenosis is identified within the cervical segments. The visualized lung girard are unremarka ble. IMPRESSION Patent dural venous sinuses. No acute vascular findings within the ne ck. Performing Organization Address City/State/Zipcode Phone Number PACS/VR/DOSE CT ANGIOGRAM HEAD (04/30/2020 6:21 PM MANAGER INDUSTRIAL) Specimen Impressions Performed At PACS/VR/DOSE Patent dural venous sinuses. No acute vascular findings within the ne ck. Narrative Performed At This result has an attachment that is no t available. CT ANGIOGRAM HEAD, CT ANGIOGRAM NECK PACS/VR/DOSE HISTORY: Female 25 years headache COMPARISON: None TECHNIQUE: CT venographic images of the head and neck were obtained after administration of IV contrast. Neck CTA was also perfo rmed. Multiplanar reformats including maximum intensity projection image s submitted for review. CTV: No filling defects are identified within the dural ve nous sinuses. The superior sagittal sinus, transverse sinuses, jugular b ulbs, and proximal internal jugular veins are widely patent. Deep cerebra l veins are within normal limits. The visualized cortical veins are withi n normal limits. Visualized portion of the arterial tree is grossly wit hout abnormality. NECK CTA: Classic three-vessel arch anatomy identified. The gr eat vessel ostia are patent. The subclavian arteries demonstrate normal contrast op acification. There is normal opacification of the common carotid ar teries and cervical courses of the bilateral internal carotid arteries. The vertebral artery ostia patent. No flow-limiting st enosis is identified within the cervical segments. The visualized lung girard are unremarkable. Procedure Note [facility], Radiant Results Inft User - 2019 11:[address] ANGIOGRAM HEAD, CT ANGIOGRAM NECK HISTORY: Female 25 years headache COMPARISON: None TECHNIQUE: CT venographic images of the head and neck were obtained after administration of IV contrast. Neck CTA was also performed. Multiplanar reformats including maximum intensity pr ojection images submitted for review. CTV: No filling defects are identified withi n the dural venous sinuses. The superior sagittal sinus, transverse sinu ses, jugular bulbs, and proximal internal jugular veins are widely patent . Deep cerebral veins are within normal limits. The visualized cortical v eins are within normal limits. Visualized portion of the arterial tree is grossly without abnormality. NECK CTA: Classic three-vessel arch anatomy identi fied. The great vessel ostia are patent. The subclavian arteries demonstrate norm al contrast opacification. There is normal opacification of the com mon carotid arteries and cervical courses of the bilateral internal caroti d arteries. The vertebral artery ostia patent. No fl ow-limiting stenosis is identified within the cervical segments. The visualized lung girard are unremarka ble. IMPRESSION Patent dural venous sinuses. No acute vascular findings within the ne ck. Performing Organization Address City/State/Zipcode Phone Number PACS/VR/DOSE BASIC METABOLIC PANEL (NA, K, CL, CO2, GLUCOSE, BUN, CREATININE, CA) (04/30/2020 1:04 PM MANAGER INDUSTRIAL) Pathologist [facility] NA [phone] - 145 [facility] mmol/L [facility] K 3.8 3.5 - 5.0 [facility] mmol/L [facility] CL 110 (H) 98 - 108 mmol/L [facility] CO2 TOTAL 20 (L) 23 - 31 mmol/L [facility] AGAP 10 2 - 16 [facility] BUN 13 7 - 23 mg/dL [facility] GLUCOSE 78 70 - 110 mg/dL [facility] CREATININE 0.67 0.50 - 1.04 [facility] mg/dL [facility] CALCIUM 8.9 8.6 - 10.6 [facility] mg/dL [facility] eGFR Calculation 107.2 mL/min/1.73m2 [facility] (Non-[facility] LABORATORY Portuguese) eGFR Calculation 130.0 mL/min/1.73m2 [facility] () [facility] Specimen Blood - VENOUS Narrative Performed At Association of Glomerular Filtration Rate (GFR) [facility] and Staging of Kidney Disease* + [...] tests). Performing Organization Address City/State/Zipcode Phone Number [facility] CLIA: [id number] [place] [address] POCT TEST (04/30/2020 12:11 PM MANAGER INDUSTRIAL) Pathologist Sig nature POCT PREG negative On board controls acceptable present with C Line POCT PREG LOT # [id number] POCT PREG TEST DATE 08/10/2021 Specimen Urine - URINE, CLEAN CATCH CBC WITH DIFF (04/30/2020 11:58 AM MANAGER INDUSTRIAL) [facility] WBC 7.90 4.30 - 11.10 [facility] 10*3/L [facility] RBC 4.63 3.93 - 5.25 [facility] 10*6/L [facility] HGB 13.3 11.6 - 15.0 [facility] g/dL [facility] HCT 40.4 35.7 - 45.2 % [facility] MCV 87.3 80.6 - 95.5 fL [facility] MCH 28.7 25.9 - 32.8 pg [facility] MCHC 32.9 31.6 - 35.1 [facility] g/dL [facility] RDW-SD 46.9 39.0 - 49.9 fL [facility] RDW-CV 14.8 12.0 - 15.5 % [facility] PLT 467 (H) 166 - 358 [facility] 10*3/L [facility] MPV 9.8 9.5 - 12.9 fL [facility] NRBC/100 WBC 0.0 0.0 - 10.0 /100 [facility] WBCs [facility] NRBC x10^3 <0.01 10*3/L [facility] GRAN MAT (NEUT) % 49.5 % [facility] IMM GRAN % 0.40 % [facility] LYMPH % 39.5 % [facility] MONO % 4.9 % [facility] EOS % 5.1 % [facility] BASO % 0.6 % [facility] GRAN MAT x10^3(ANC) 3.91 1.88 - 7.09 [facility] 10*3/uL HOSPITAL LABORATORY IMM GRAN x10^3 0.03 0.00 - 0.06 [facility] 10*3/uL HOSPITAL LAB[facility]ORY LYMPH x10^3 3.12 1.32 - 3.29 [facility] 10*3/uL H[facility]ITAL LAB[facility]ORY MONO x10^3 0.39 0.33 - 0.92 [facility] 10*3/uL HOSPITAL LABORATORY EOS x10^3 0.40 (H) 0.03 - 0.39 [facility] 10*3/uL [facility] BASO x10^3 0.05 0.01 - 0.07 [facility] 103/uL [facility] Specimen Blood - VENOUS Performing Organization Address [facility] Phone Number [facility] CLIA: [id number] [place], [place] [id number] LABORATORY [address] COVID-19 (ID NOW RAPID TESTING) (04/30/2020 11:58 AM MANAGER INDUSTRIAL) SARS-CoV-2 Rapid ID Not Detected Not Detected [facility] Specimen Swab - NASOPHARYNGEAL SWAB Narrative Performed At IA NOW COVID-19 Assay is an isothermal nucleic [facility] acid amplification test intended for the qualitative detection of nucleic acid from SARS-CoV-2 viral RNA in nasopharyngeal (FLATWORK SUPERVISOR) specimens. It is used under Emergency Use [...] testing if clinically indicated. Performing Organization Address [facility] Phone Number [facility] CLIA: [id number] [place], [place] [id number] LABORATORY [address] [place] [address] documented in this encounter Visit Diagnoses Diagnosis Acute intractable headache, unspecified headache type - Primary Visual field defect Visual field defect, unspecified Headache documented in this encounter Administered Medications Medication Order MAR Action Action Date Dose Rate Site acetaminophen (TYLENOL) tablet Given 05/01/2020 4:47 AM MANAGER INDUSTRIAL 650 mg 650 mg 650 mg, Oral, Q6HPRN, Starting 04/30/20 at 1456, Until Discontinued, Routine, Pain (scale 4-6) Given 04/30/2020 4:46 PM MANAGER INDUSTRIAL 650 mg ketorolac (TORADOL) injection 15 mg Given 05/01/2020 3:15 AM MANAGER INDUSTRIAL 15 mg 15 mg, Slow IV Push, Q6HPRN, 4 doses, Starting 04/30/20 at 1611, Until Discontinued, Routine, Pain (scale 7-10), parole board member approving Restricted medication: RODRIGUEZ MARK Given 04/30/2020 4:45 PM MANAGER INDUSTRIAL 15 mg NaCl 0.9% (NS) IV infusion 1,000 New Bag 05/01/2020 4:[address] 1,000 mL 100 mL/hr mL at 100 mL/hr, IV Infusion, CONTINUOUS, Starting 04/30/20 at 1915, Until Discontinued, Routine New Bag 04/30/2020 6:35 PM MANAGER INDUSTRIAL 1,000 mL 100 mL/hr proCHLORperazine (COMPAZINE) 5 mg in NaCl 0.9% Given 1 07/02/2019 7:31 AM MANAGER INDUSTRIAL 5 mg (NS) piggyback 5 mg, IV Piggyback, Q6HPRN, 2 doses, Starting 05/01/20 at 0017, Until Discontinued, 50 mL Medication Order MAR Action Action Date Dose Rate Site efynbuyiad-atieefkfvouqu-kudk Given 04/30/2020 11:37 AM MANAGER INDUSTRIAL 1 ta blet (ESGIC) 50-325-40 mg tablet 1 tablet 1 tablet, Oral, ONCE, 1 dose, 04/30/20 at 1245, Routine diphenhydrAMINE (BENADRYL) injection 25 mg Given 04/30/2020 12:36 PM MANAGER INDUSTRIAL 25 mg 25 mg, Slow IV Push, ONCE, 1 dose, 04/30/20 at 1330, STAT diphenhydrAMINE (BENADRYL) injection 50 mg Given 05/01/2020 8:02 AM MANAGER INDUSTRIAL 50 mg 50 mg, Slow IV Push, PRN - SEE INSTRUCTIONS, 1 dose, Starting 04/30/20 at 1806, Until 05/01/20 at 0802, Routine, give once before MRI brain gadobenate dimeglumine Given 05/01/2020 9:15 AM MANAGER INDUSTRIAL 11.98 mL Right Arm (MULTIHANCE-10 mL) injection 11.98 mL 11.98 mL (0.2 mL/kg 59.9 kg), Intravenous, ONCE, 1 dose, [place] 05/01/20 at 0915, Routine iohexol (OMNIPAQUE 350 BULK-100 mL) injection Given 6:14 PM MANAGER INDUSTRIAL 80 mL 80 mL 80 mL, Intravenous, ONCE, 1 dose, 04/30/20 at 1830, Routine magnesium sulfate in water 2 gram/50 mL (4 %) New Bag 7:35 PM MANAGER INDUSTRIAL 2 g infusion 2 g 2 g, IV Piggyback, ONCE, 1 dose, 04/30/20 at 1915, Routine methylprednisolone sod succ (SOLU-MEDROL) Given 04/30/2020 12:35 PM MANAGER INDUSTRIAL 125 mg injection 125 mg 125 mg, IV Piggyback, ONCE, 1 dose, 04/30/20 at 1330, STAT metoclopramide HCl (REGLAN) injection 10 mg Given 04/30/2020 12:35 PM MANAGER INDUSTRIAL 10 mg 10 mg, Slow IV Push, ONCE, 1 dose, 04/30/20 at 1330, [place] NaCl 0.9% (NS) bolus infusion New Bag 04/30/2020 11:55 AM MANAGER INDUSTRIAL 1,000 mL 999 mL/hr 1,000 mL at 999 mL/hr, 1,000 mL, IV Infusion, ONCE, 1 dose, 04/30/20 at 1245, STAT ondansetron (ZOFRAN (PF)) injection 4 mg Given 04/30/2020 11:55 AM MANAGER INDUSTRIAL 4 mg 4 mg, Slow IV Push, ONCE, 1 dose, 04/30/20 at 1245, [place] valproate (DEPACON) 500 mg in D5W piggyb ack Given 05/01/2020 8:05 AM MANAGER INDUSTRIAL 500 mg 500 mg, IV Piggyback, ONCE, 1 dose, [place] 05/01/20 at 0615, 100 mL documented in this encounter Additional Health Concerns Infection Onset Date Last Indicated Resolved Time COVID-19 Rule Out 04/30/2020 04/30/2020 04/30/2020 12: 33 PM MANAGER INDUSTRIAL documented as of this encounter Insurance Payer Benefit Plan / Subscriber ID Effective Phone Address T ype Group Dates SAMMY CHRISTIANSON [id number] 2019-Pres [address] Medic aid [employer]ALTHCARE - [place]CARE [place] [id number] MANAGED MEDICAID [place], [place] documented as of this encounter
--- OUTSIDE RECORDS SUMMARY | 2020-05-10 08:19 | XMS REPORT | Summary of Care ---
:1995 Author Organization [facility] Address [address] [place] [id number] Care Team Providers Name Role Phone Jessica Baker Insurance Hmo Kassandra Dennis MD Primary Care Provider Reason for Visit Reason Comments Assessment BLURRED VISION MIGRAINE Encounter Details Date Type Department Care Team Description 04/29/2020 Telephone [facility] Pediatric Paz Dennis , Assessment; BLURRED and Adult Primary MD VISION; MIGRAINE Care- [address] [place] [place] [address], [address] [address] [place], [place] [phone] [address] [phone] Allergies Active Allergy Reactions Severity Noted Date Comments Latex Rash 04/13/2020 Metoclopramide Hcl Anxiety 07/12/2019 Patient s ays she gets figity, angry and mean documented as of this encounter (statuses as of 05/02/2020) Medications Medication Sig Dispensed Refills Start Date End Date Status metoprolol succinate Take 0.5 tablets 90 tablet 1 05/02/2020 0 07/31/2020 Active XL 25 mg 24 hr by mouth 2 (two) tabletIndications: times daily for Palpitations 90 days. documented as of this encounter (statuses as of 05/02/2020) Active Problems Problem Noted Date Headache 04/30/2020 Sinus tachycardia 04/13/2020 Abdominal pain 04/13/2020 Tachycardia 04/12/2020 Anxiety disorder, unspecified type 01/05/2020 Insomnia, unspecified type 01/05/2020 Other depression 08/13/2019 Cervical Papanicolaou smear negative within last 12 mo [facility] 06/19/2019 Overview: 12/2018 NIL pap , see scanned records documented as of this encounter (statuses as of 05/02/2020) Resolved Problems Problem Noted Date Resolved Date [...] as of this encounter (statuses as of 05/02/2020) Immunizations Name Administration Dates Next Due Influenza [...] No / Unsure 04/30/2020 11:11 AM MANAGER OF EMPLOYEE RELATIONS someone who was confirmed or 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 documented as of this encounter Last Filed Vital Signs Not on filedocumented in this encounter Miscellaneous Notes Telephone Encounter - Rad Potts MD - 05/02/2020 10:26 AM CSTRefills for Toprol-XL 12.5 mg twice daily for 90 days with 1 refills done. elephone Encounter - Emilia Alex MA - 05/02/2020 10:[address]STDr. Potts she is asking for refill on Toprol-XL 12.[address] Dennis patient would like something for her headache, she did go to [place] for this and leftbecause she has children at home. elephone Encounter - Rad Potts MD - 04/29/2020 4:26 PM CSTUnlikely for nadolol to cause migraine. Its actually helps in migraine. If she wants to stop it, then she may. If so, she may go back to taking Toprol-XL 12.5 mg BiD (she was taking Toprol XL 12.5 mg daily before). elephone Encounter - Emilia Alex MA - 04/29/2020 4:24 PM CSTSpoke with Ale With cardiology and she will route this message to Dr. Cisnerosectronically signed by Emilia Alex MA at 04/29/2020 4:25 PM MANAGER OF EMPLOYEE RELATIONS Telephone Encounter - Stacy Mays MA - 04/29/2020 4:02 PM CST04/29/20 4:02 PM Routing to correct clinic Stacy Mays MA 04/29/2020 4:02 PM elephone Encounter - Miguel Weston - 04/29/2020 3:50 PM CSTPatient called stating her motor vehicle operator road supervisor changed her medication, she thinks that's causing her severe migraine and blurry vision. She tried contacting her motor vehicle operator road supervisor yesterday but she still hasn't heard from them. She has tried almost everything OTC but nothing is helping her. She is in a lot of painand she would like to speak to the nurse as soon as possible. documented in this encounter Plan of Treatment Date Type Specialty Care Team Description 05/19/2020 Telemedicine Visit Nephrology Lopez Hitchcock M D [address] [place] [phone] 06/02/2020 Office Visit Cardiology Rad Potts MD [address] [place] [address] [place] [phone] 08/11/2020 Office Visit Obstetrics & QuiñonezShelia M D Gynecology [address] [facility] [facility] [address] [place] [address] [place] [phone] Health Maintenance Due Date Last Done Comments HPV VACCINES (1 - 2-dose series) 2006 PAP SMEAR 02/19/2016 INFLUENZA VACCINE (#1) 2020 02/06/2019 Depression Screening 09/01/2020 09/02/2019, 09/02/2019 DTaP,Tdap,and Td Vaccines (2 - Td) 05/21/2029 05/21/2019 PNEUMOCOCCAL 0-64 YEARS COMBINED SERIES Discontinued documented as of this encounter Results Not on filedocumented in this encounter Visit Diagnoses Diagnosis Palpitations - Primary documented in this encounter Additional Health Concerns Infection Onset Date Last Indicated Resolved Time COVID-19 Rule Out 04/30/2020 04/30/2020 04/30/2020 12: 33 PM MANAGER OF EMPLOYEE RELATIONS documented as of this encounter Insurance Payer Benefit Plan / Subscriber ID Effective Phone Address [facility] Group [facility]ates SAMMY CHRISTIANSON [id number] 2019-Pres [address] Medic aid [place]C[employer] [place]ARE [place] [id number] MANAGED MED[place]ID [place] documented as of this encounter
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
--- OUTSIDE RECORDS SUMMARY | 2020-05-10 08:20 | XMS REPORT | Summary of Care ---
:1995 Author Organization [facility] Address [address] [place] [id number] Care Team Providers Name Role Phone Jessica Baker Insurance Hmo Kassandra Dennis MD Primary Care Provider Encounter Details Date Type Department Care Team Description 05/02/2020 Patient Secure Msg [facility] Family Gilberto Dennis, [facility] - Maurice FELIX [address] [place] [address] Dr vald[address] [place] [address] [place] [address] [place] [address] [phone] Allergies Active Allergy Reactions Severity Noted Date Comments Latex Rash 04/13/2020 Metoclopramide Hcl Anxiety 07/12/2019 Patient s ays she gets figity, angry and mean documented as of this encounter (statuses as of 05/03/2020) Medications Medication Sig Dispensed Refills Start Date End Date Status metoprolol succinate Take 0.5 tablets 90 tablet 1 05/02/2020 0 07/31/2020 Active XL 25 mg 24 hr by mouth 2 (two) tabletIndications: times daily for Palpitations 90 days. documented as of this encounter (statuses as of 05/03/2020) Active Problems Problem Noted Date Headache 04/30/2020 Sinus tachycardia 04/13/2020 Abdominal pain 04/13/2020 Tachycardia 04/12/2020 Anxiety disorder, unspecified type 01/05/2020 Insomnia, unspecified type 01/05/2020 Other depression 08/13/2019 Cervical Papanicolaou smear negative within last 12 mo [facility] 06/19/2019 Overview: 12/2018 NIL pap , see scanned records documented as of this encounter (statuses as of 05/03/2020) Resolved Problems Problem Noted Date Resolved Date [...] as of this encounter (statuses as of 05/03/2020) Immunizations Name Administration Dates Next Due Influenza [...] with No / Unsure 04/30/2020 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 documented as of this encounter Last Filed Vital Signs Not on filedocumented in this encounter Miscellaneous Notes Telephone Encounter - Mary Jane Pike - 05/03/2020 8:30 AM CSTPatient will call me back to confirm appointment for today at 3pm, slot on hold elephone Encounter - Paz Dennis MD - 05/03/2020 12:45 AM CSTNeeds appointment for chief complaint headaches. documented in this encounter Plan of Treatment Date Type Specialty Care Team Description 05/19/2020 Telemedicine Visit Nephrology Lopez Hitchcock M D [address] [place] [phone] 06/02/2020 Office Visit Cardiology Rad Potts MD [address] [place] [address] 08/11/2020 Office Visit Obstetrics & QuiñonezShelia M D Gynecology [address] [place], [place] [address] Health Maintenance Due Date [...] Address T e Group Dates SAMMY CHRISTIANSON [id number] 2019-Pres [address] Medic aid [place]ARE [place] [id number] MANAGED MED[place]ID [place] documented as of this encounter
--- OUTSIDE RECORDS SUMMARY | 2020-05-10 08:20 | XMS REPORT | Summary of Care ---
:1995 Author Organization [facility] Address [address] [place] [address] Care Team Providers Name Role Phone BakerJessica Insurance Hmo Kassandra Dennis MD Primary Care Provider Reason for Referral ([place]) Status Reason Specialty Diagnoses / Referred By Referred To Procedures Contact Contact New Request Neurology Diagnoses Recurrent headache Visual changes Paz Dennis Procedures CONSULT/REFERRAL NEUROLOGY MD Kassandra [address] [place] [address] [place] [address] Reason for Visit Reason Comments MIGRAINE blurred vision, patient thin ks she may be allergic to her cat. Encounter Details Date Type Department Care Team Description 05/03/2020 Office Visit [facility] Family Paz Dennis Recu rrent headache (Primary Dx); Medicine - Maurice Cannon MD Visual changes; [address] [place] [address] [place] [phone] Allergies Active Allergy Reactions [...] with No / Unsure 05/03/2020 3:04 PM CARD BOXER someone who was confirmed or 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 documented as of this encounter Last Filed Vital Signs Vital Sign Reading Time Taken Comments Blood Pressure 111/75 05/03/2020 3:04 PM CARD BOXER Pulse 79 05/03/2020 3:04 PM CARD BOXER Temperature 36.8 C (98.2 F) 05/03/2020 3:04 PM CARD BOXER Respiratory Rate - - Oxygen Saturation - - Inhaled Oxygen Concentration - - Weight 61.2 kg (135 lb) 05/03/2020 3:04 PM CARD BOXER Height 157.5 cm (5' 2") 05/03/2020 3:04 PM CARD BOXER Body Mass Index 24.69 05/03/2020 3:04 PM CARD BOXER documented in this encounter Patient Instructions Patient [...] treat a migraine early if it happens. [employer] last reviewed this educational content on 09/10/201719999783-1298 The [employer]. [address] [place] [address], [place] [address]. All rights reserved. This information is not [...] Nonsteroidal anti-inflammatory drugs (such as ibuprofen, available [id number]) ? Beta-blockers ? Anticonvulsants ? Tricyclic antidepressants [...] limit the amount of caffeine you consume. [employer] last reviewed this educational content on 09/10/2017 The [employer]. All rights reserved. This information is not intended as a substitute for professional medical care. Always follow your healthcare professional's instructions. BOXER documented in this encounter Progress Notes Paz Dennis MD - 05/03/2020 3:00 PM CST CC: Chief Complaint Patient presents with MIGRAINE blurred vision, patient thinks she may be allergic to her cat. HPI Natanael Dyson is a 25 year old F who presents for ER f/u of migraine headache follow-up. The patient presented to [facility] ER on 04/30/20 with complaint of severe TORRES and blurred vision. The patient underwent the following evaluations: Labs. The patient was diagnosed with acute intractable headache and visual field deficit and she was transferred to [facility] for CT imaging (the CT scanner on [...] N/A 07/21/2019 Surgeon: Shelia Quiñonez MD; Location: [facility] Labor and Delivery OR Location TUBAL LIGATION N/A 07/21/2019 Surgeon: Shelia Quiñonez MD; Location: [facility] Labor and Delivery OR [...] file Gets together: Not on file Attends orthodox service: Not on file Active member of [...] 04/30/2020 present POCT PREG LOT # 04/30/2020 [id number] POCT PREG TEST DA* 04/30/2020 08/10/2021 MAGNESIUM [...] 04/21/2020 Yes POCT PREG LOT # 04/21/2020 [id number] POCT PREG TEST DA* 04/21/2020 01/10/2022 Office [...] 04/12/2020 Present POCT PREG LOT # 04/12/2020 [id number] POCT PREG TEST DA* 04/12/2020 09/09/2021 MAGNESIUM [...] upon aggregate COVID-19 test results pooled from [facility]. They apply to the following tests offered at [facility] and assume the acceptable specimen type(s) were used: A. Tests for the Identification of SARS-CoV-2 RNA (Molecular NAAT Tests): - SARS-CoV-2 PCR assays including [place] Aptima, [place] Fusion, Mina RealTime, and [employer] Xpert Xpress. - SARS-CoV-2 Rapid ID NOW by the ID NOW assay. B. Tests for the Identification of SARS-CoV-2 Antibodies: - Chemiluminescent immunoassays including Access SARS-CoV-2 IgM (DXI 600), [employer] Xqva-DPNR-PkR-2 IgG (Vitros 5600 and Vitros 3600), and Mina SARS-CoV-2 IgG (GROUNDS RESTORATION SPECIALIST I System). These interpretations are autopopulated into [facility] based on computerized algorithms matching an interpretation code to the patient's set of test results, and a clinical pathologist evaluates the comments for accuracy. However, these comments do not consider testing a patient may have had outside of the[facility] system. If results for COVID-19 infection continue [...] - ketorolac (TORADOL) injection 60 mg - Ogelgaudcb-Rjzwpvfywphwb-Xfwm (FIORICET) 50-300-40 mg per capsule; Take 1 [...] at a future visit. If applicable, the [place] PMPdatabase was accessed to review any controlled substance prescription claims data. If the patient is taking prescribed medications, the [employer] prescription claims data in Fundability was reviewed to assess patient compliance with the medication treatment plan. Follow-up: Return if symptoms worsen or fail to improve. Return for routine care as scheduled or previously advised. BOXER documented in this encounter Plan of Treatment Date Type Specialty Care Team Description 05/19/2020 Telemedicine Visit Nephrology Lopez Hitchcock M D [address] [place] [phone] 06/02/2020 Office Visit Cardiology Rad Potts MD [address] [place] [address] 08/11/2020 Office Visit Obstetrics & QuiñonezShelia M D Gynecology [address] [place], [place] [address] Health Maintenance Due Date [...] ketorolac (TORADOL) injection Given 05/03/2020 3:53 PM CARD BOXER 60 m g Right Hip 60 mg 60 mg, Intramuscular, ONCE, 1 dose, 05/03/20 at 1645, Routine, event staff member approving Restricted medication: PAZ DENNIS documented in this encounter Insurance Payer Benefit Plan / Subscriber ID Effective Phone Address T ype Group Dates SAMMY CHRISTIANSON [id number] 2019-Pres [address] Medic aid HEALTHCARE [place]ARE [place] [id number] MANAGED MEDICAID [place], [place] documented as of this encounter
--- OUTSIDE RECORDS SUMMARY | 2020-05-10 08:20 | XMS REPORT | Summary of Care ---
:1995 Author Organization [facility] Address [address] [place] [address] Care Team Providers Name Role Phone Jessica Baker Insurance Hmo Kassandra Dennis MD Primary Care Provider Encounter Details Date Type Department Care Team Description 05/03[facility]2020 [facility] Cosme Dennis Angleton MD [address] [facility], [address] [facility] [address] [place] [phone] Allergies Active Allergy Reactions Severity Noted Date [...] with No / Unsure 04/30/2020 11:11 AM REVIEWER SALES someone who was confirmed or 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 documented as of this encounter Last Filed Vital Signs Not on filedocumented in this encounter Plan of Treatment Date Type Specialty Care Team Description 05/03/2020 Office Visit Family Medicine Paz Dennis MD [address] [place] [phone] 05/19/2020 Telemedicine Visit Nephrology Lopez Hitchcock M D [address] [place] [phone] 06/02/2020 Office Visit Cardiology Rad Potts MD [address] [place] [address] 08/11/2020 Office Visit Obstetrics & QuiñonezShelia M D Gynecology [address] [place], [place] [address] Health Maintenance Due Date [...] / Subscriber ID Effective Phone Address [facility] Group Dates SAMMY CHRISTIANSON [id number] 2019-Pres [address] Medic aid HEALTHCARE [place]CARE [place] [id number] MANAGED MEDICAID [place], [place] documented as of this encounter
--- OUTSIDE RECORDS SUMMARY | 2020-05-10 08:21 | XMS REPORT | Summary of Care ---
:1995 Author Organization [facility] Address [address] [place] [address] Care Team Providers Name Role Phone BakerJessica Insurance Hmo Kassandra Dennis MD Primary Care Provider Reason for Referral ([place]) Status Reason Specialty Diagnoses / Referred By Referred To Procedures Contact Contact New Request Neurology Diagnoses Recurrent headache Visual changes Paz Dennis Procedures CONSULT/REFERRAL NEUROLOGY MD Kassandra [address] [place] [address] [place] [phone] Reason for Visit Reason Comments MIGRAINE blurred vision, patient thin ks she may be allergic to her cat. Encounter Details Date Type Department Care Team Description 05/03/2020 Office Visit [facility] Family Paz Dennis Recu rrent headache (Primary Dx); Medicine - Maurice Cannon MD Visual changes; [address] [place] [address] [place] [phone] Allergies Active Allergy Reactions Severity Noted Date Comments Latex Rash 04/13/2020 Metoclopramide Hcl Anxiety 07/12/2019 Patient s ays she gets figity, angry and mean documented as of this encounter (statuses as of 05/08/2020) Medications Medication Sig Dispensed Refills Start Date [...] as of this encounter (statuses as of 05/08/2020) Active Problems Problem Noted Date Visual changes 05/07/2020 Headache 04/30/2020 Sinus tachycardia 04/13/2020 Abdominal pain 04/13/2020 Anxiety disorder, unspecified type 01/05/2020 Insomnia, unspecified type 01/05/2020 Other depression 08/13/2019 Cervical Papanicolaou smear negative within last 12 mo [facility] 06/19/2019 Overview: 12/2018 NIL pap , see scanned records documented as of this encounter (statuses as of 05/08/2020) Resolved Problems Problem Noted Date Resolved Date [...] as of this encounter (statuses as of 05/08/2020) Immunizations Name Administration Dates Next Due Influenza [...] with No / Unsure 05/03/2020 3:04 PM MANAGER INTERNET RETAILS SALES someone who was confirmed or 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 documented as of this encounter Last Filed Vital Signs Vital Sign Reading Time Taken Comments Blood Pressure 111/75 05/03/2020 3:04 PM MANAGER INTERNET RETAILS SALES Pulse 79 05/03/2020 3:04 PM MANAGER INTERNET RETAILS SALES Temperature 36.8 C (98.2 F) 05/03/2020 3:04 PM MANAGER INTERNET RETAILS SALES Respiratory Rate - - Oxygen Saturation - - Inhaled Oxygen Concentration - - Weight 61.2 kg (135 lb) 05/03/2020 3:04 PM MANAGER INTERNET RETAILS SALES Height 157.5 cm (5' 2") 05/03/2020 3:04 PM MANAGER INTERNET RETAILS SALES Body Mass Index 24.69 05/03/2020 3:04 PM MANAGER INTERNET RETAILS SALES documented in this encounter Patient Instructions Patient [...] treat a migraine early if it happens. [employer] last reviewed this educational content on 09/10/201719995294-0618 The [employer]. [address] [place] [address], [place] [address]. All rights reserved. This information is not [...] Nonsteroidal anti-inflammatory drugs (such as ibuprofen, available [id number]) ? Beta-blockers ? Anticonvulsants ? Tricyclic antidepressants [...] limit the amount of caffeine you consume. [employer] last reviewed this educational content on 09/10/2017 The [employer]. All rights reserved. This information is not intended as a substitute for professional medical care. Always follow your healthcare professional's instructions. GER INTERNET RETAILS SALES documented in this encounter Progress Notes Paz Dennis MD - 05/03/2020 3:00 PM CST CC: Chief Complaint Patient presents with MIGRAINE blurred vision, patient thinks she may be allergic to her cat. HPI Natanael Dyson is a 25 year old F who presents for ER f/u of migraine headache follow-up. The patient presented to [facility] ER on 04/30/20 with complaint of severe TORRES and blurred vision. The patient underwent the following evaluations: Labs. The patient was diagnosed with acute intractable headache and visual field deficit and she was transferred to [facility] for CT imaging (the CT scanner on [...] 04/30/2020 present POCT PREG LOT # 04/30/2020 [id number] POCT PREG TEST DA* 04/30/2020 08/10/2021 MAGNESIUM [...] 04/21/2020 Yes POCT PREG LOT # 04/21/2020 [id number] POCT PREG TEST DA* 04/21/2020 01/10/2022 Office [...] 04/12/2020 Present POCT PREG LOT # 04/12/2020 [id number] POCT PREG TEST DA* 04/12/2020 09/09/2021 MAGNESIUM [...] aggregate COVID-19 test results pooled from [facility]. They apply to the following tests offered at [facility] and assume the acceptable specimen type(s) were used: A. Tests for the Identification of SARS-CoV-2 RNA (Molecular NAAT Tests): - SARS-CoV-2 PCR assays including [place] Aptima, [place] Fusion, Mina RealTime, and [employer] Xpert Xpress. - SARS-CoV-2 Rapid ID NOW by the ID NOW assay. B. Tests for the Identification of SARS-CoV-2 Antibodies: - Chemiluminescent immunoassays including Access SARS-CoV-2 IgM (DXI 600), [employer]S Inhb-UAJN-EcO-2 IgG (Vitros 5600 and Vitros 3600), and Mina SARS-CoV-2 IgG (RESIDENTIAL SALES EXECUTIVE I System). These interpretations are autopopulated into [facility] based on computerized algorithms matching an interpretation code to the patient's set of test results, and a clinical pathologist evaluates the comments for accuracy. However, these comments do not consider testing a patient may have had outside of the[facility] system. If results for COVID-19 infection continue [...] - ketorolac (TORADOL) injection 60 mg - Llarghouyw-Ktoqeqywdfmsd-Ppgt (FIORICET) 50-300-40 mg per capsule; Take 1 [...] at a future visit. If applicable, the [place] PMPdatabase was accessed to review any controlled substance prescription claims data. If the patient is taking prescribed medications, the [employer] prescription claims data in Stir was reviewed to assess patient compliance with the medication treatment plan. Follow-up: Return if symptoms worsen or fail to improve. Return for routine care as scheduled or previously advised. GER INTERNET RETAILS SALES documented in this encounter Plan of Treatment Date Type Specialty Care Team Description 05/19/2020 Telemedicine Visit Nephrology Lopez Hitchcock M D [address] [place] [phone] 06/02/2020 Office Visit Cardiology Rad Potts MD [address] [place] [address] 08/11/2020 Office Visit Obstetrics & QuiñonezShelia M D Gynecology [address] [facility] [address] [place], [place] [address] Health Maintenance Due Date [...] ketorolac (TORADOL) injection Given 05/03/2020 3:53 PM MANAGER INTERNET RETAILS SALES 60 m g Right Hip 60 mg 60 mg, Intramuscular, ONCE, 1 dose, 05/03/20 at 1645, Routine, film crew member approving Restricted medication: PAZ DENNIS documented in this encounter Insurance Payer Benefit Plan / Subscriber ID Effective Phone Address T ype Group Dates SAMMY CHRISTIANSON [id number] 2019-Pres [address] Medic aid HEALTHCARE [place]CARE [place] [id number] MANAGED MEDICAID [place], [place] documented as of this encounter
--- OUTSIDE RECORDS SUMMARY | 2020-05-10 08:22 | XMS REPORT | Summary of Care ---
:1995 Author Organization [facility] Address [address] [place] [address] Care Team Providers Name Role Phone Jessica Baker Insurance [employer] Kassandra Dennis MD Primary Care Provider Reason for Referral Radiology Services (STAT) Status Reason Specialty Diagnoses / Referred By Referred To Procedures Contact Contact New Request Diagnostic Diagnoses Fever, unspecified fever cause Drever, Edgar Radiology Procedures XR CERVICAL SPINE 3 VW G, ARMATURE VARNISHER [address] [place] [address] MRI/CAT Scan (STAT) Status Reason Specialty Diagnoses / Referred By Referred To Procedures Contact Contact New Request Diagnostic Diagnoses Fever, unspecified fever cause Drever, Edgar Radiology Procedures CT Head W/O Contrast G, ARMATURE VARNISHER [address] [address] Radiology Services (STAT) Status Reason Specialty Diagnoses / Referred By Referred To Procedures Contact Contact New Request Diagnostic Diagnoses Fever, unspecified fever cause Drever, Edgar Radiology Procedures Chest 1 View G, ARMATURE VARNISHER [address] [address] Reason for Visit Reason Comments Fever Headache Pain Back Pain Vomiting Auth/Cert Status Reason Specialty Diagnoses / Referred By Referred To Procedures Contact Contact Emergency Medicine Diagnoses FEVER;HEADACHE;PAIN;BACK PAIN [facility] Emergency Dept [address] [place] [phone] Fax: Encounter Details Date Type Department Care Team Description 05/08/2020 Emergency ADC-Emergency Onesimo, Edgar Mosqueda, Acute int ractable headache, unspecified headache type (Primary Dx); Department ARMATURE VARNISHER Fever, unspecified fever cause [address] [facility] [facility] [address] valdovinos [address] [place] [address] [id number] [place], [place] [address] Allergies Active Allergy Reactions Severity Noted Date [...] as needed for Nausea and Vomiting (N/V). documented as of this encounter [...] month, have you been in contact with Yes 05/08/2020 10:13 AM AGRICULTURAL SERVICE TECHNICIAN someone who was confirmed or 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 documented as of this encounter Last Filed Vital Signs Vital Sign Reading Time Taken Comments Blood Pressure 117/76 05/08/2020 12:00 PM AGRICULTURAL SERVICE TECHNICIAN Pulse 71 05/08/2020 12:00 PM AGRICULTURAL SERVICE TECHNICIAN Temperature 37.3 C (99.1 F) 05/08/2020 10:20 AM AGRICULTURAL SERVICE TECHNICIAN Respiratory Rate 19 05/08/2020 12:00 PM AGRICULTURAL SERVICE TECHNICIAN Oxygen Saturation 100% 05/08/2020 12:00 PM AGRICULTURAL SERVICE TECHNICIAN Inhaled Oxygen Concentration - - Weight 61.2 kg (135 lb) 05/08/2020 10:20 AM AGRICULTURAL SERVICE TECHNICIAN Height - - Body Mass Index 24.69 05/03/2020 3:04 PM AGRICULTURAL SERVICE TECHNICIAN documented in this encounter Discharge Instructions Edgar Adrian NP - 05/08/2020Diagnosis: Intractable headache Viral like syndrome Follow up with your PCP Continue to use OTC medications and your ESGIC for your headache Referral to neurology for follow up placed documented in this encounter ED Notes Lisandro Pratt RN - 05/08/2020 10:20 AM CSTWalking 1 minute sats 86%. C/O generalized pain, TORRES, fever, and NV x 4 days. Fell yesterday and has a bruise on forehead. documented in this encounter Miscellaneous Notes ED Nurse Note - Karin Jones RN - 05/08/2020 1:01 PM CSTPt discharged with diagnosis of acute intractable headache. Printed and verbal instructions reviewedwith and given to patient. No new prescriptions given for this visit. Pt verbalized understanding ofteaching and recommended follow-up. Denies questions or concerns at this time. Pt ambulatory at discharge, appears in no apparent distress. D Nurse Note - Karin Jones RN - 05/08/2020 11:18 AM CSTVeronica in lab notified of add-on for magnesium. D Nurse Note - Karin Jones RN - 05/08/2020 10:37 AM CSTERP repeated 1 minute walk test at bedside at this time. Pt O2 sat dropped to 96% on RA, HR 95. documented in this encounter Plan of Treatment Date Type Specialty Care Team Description 05/19/2020 Telemedicine Visit Nephrology Lopez Hitchcock M D [address] [place] [phone] 06/02/2020 Office Visit Cardiology Rad Potts MD [address] [place] [phone] 08/11/2020 Office Visit Obstetrics & Shelia Quiñonez M D Gynecology [address] [facility] [address] [place], [place] [address] Name Type Priority Associated Diagnoses Date/Ti me EKG-12 LEAD ROUTINE ONCE HEART STATION STAT Fever, unspecif ied 05/08/2020 10:30 fever cause AM AGRICULTURAL SERVICE TECHNICIAN LAB ONLY COVID LAB Routine Fever, unspecified 020 10:56 INTERPRETATION fever cause AM AGRICULTURAL SERVICE TECHNICIAN Name Type Priority Associated Diagnoses Order S chedule EKG-12 LEAD ROUTINE HEART STATION STAT Fever, unspecified O NCE for 1 ONCE fever cause Occurrences starting 2019 until 0 LAB ONLY COVID LAB Routine Fever, unspecified ONCE fo r 1 INTERPRETATION fever cause Occurrences starting 2019 until 0 Health Maintenance Due Date Last Done Comments HPV VACCINES (1 - 2-dose series) 2006 PAP SMEAR 02/19/2016 INFLUENZA VACCINE (#1) 2020 02/06/2019 Depression Screening 09/01/2020 09/02/2019, 09/02/2019 DTaP,Tdap,and Td Vaccines (2 - Td) 05/21/2029 05/21/2019 PNEUMOCOCCAL 0-64 YEARS COMBINED SERIES Discontinued documented as of this encounter Procedures Procedure Name Priority Date/Time Associated Comments Diagnosis CT HEAD WO CONTRAST STAT 05/08/2020 11:30 Fever, unspecifie d Results for this AM AGRICULTURAL SERVICE TECHNICIAN fever cause procedure are i n the results section. XR CERVICAL SPINE 3 STAT 05/08/2020 11:30 Fever, unspecifie d Results for this VW AM AGRICULTURAL SERVICE TECHNICIAN fever cause procedure are i n the results section. XR CHEST 1 VW STAT 05/08/2020 11:03 Fever, unspecified Resu lts for this AM AGRICULTURAL SERVICE TECHNICIAN fever cause procedure are i n the results section. COVID-19 (ID NOW STAT 05/08/2020 10:56 Fever, unspecified R esults for this RAPID TESTING) AM AGRICULTURAL SERVICE TECHNICIAN fever cause procedure are in the results section. N-TERMINAL PRO-BNP STAT 05/08/2020 10:56 Fever, unspecified Results for this AM AGRICULTURAL SERVICE TECHNICIAN fever cause procedure are i n the results section. POCT TEST [place] 05/08/2020 10:56 Fever, unspecifie d Results for this AM AGRICULTURAL SERVICE TECHNICIAN fever cause procedure are i n the results section. ADC,CLC OR LCC ONLY - STAT 05/08/2020 10:56 Fever, unspecif ied Results for this INFLUENZA A & B AM AGRICULTURAL SERVICE TECHNICIAN fever cause procedure ar e in DIRECT ANTIGEN the results section. URINALYSIS STAT 05/08/2020 10:56 Fever, unspecified Resul ts for this AM AGRICULTURAL SERVICE TECHNICIAN fever cause procedure are i n the results section. FIBRINOGEN STAT 05/08/2020 10:56 Fever, unspecified Resul ts for this AM AGRICULTURAL SERVICE TECHNICIAN fever cause procedure are i n the results section. ACTIVATED PARTIAL STAT 05/08/2020 10:56 Fever, unspecified Results for this THRMPLAS KEILA AM AGRICULTURAL SERVICE TECHNICIAN fever cause procedure are i n the results section. D-DIMER STAT 05/08/2020 10:56 Fever, unspecified Resul ts for this AM AGRICULTURAL SERVICE TECHNICIAN fever cause procedure are i n the results section. PROTHROMBIN TIME / STAT 05/08/2020 10:56 Fever, unspecified Results for this INR AM AGRICULTURAL SERVICE TECHNICIAN fever cause procedure are i n the results section. CBC WITH DIFF STAT 05/08/2020 10:56 Fever, unspecified Resu lts for this AM AGRICULTURAL SERVICE TECHNICIAN fever cause procedure are i n the results section. BASIC METABOLIC PANEL STAT 05/08/2020 10:56 Fever, unspecif ied Results for this (NA, K, CL, CO2, AM AGRICULTURAL SERVICE TECHNICIAN fever cause procedure a re in GLUCOSE, BUN, the results CREATININE, CA) section. HEPATIC FUNCTION STAT 05/08/2020 10:56 Fever, unspecified R esults for this PANEL ([id number]) AM AGRICULTURAL SERVICE TECHNICIAN fever cause procedure are in (ALB,T.PRO,BILI the results T,BU/BC,ALT,AST,ALK section. PHOS) TROPONIN I STAT 05/08/2020 10:56 Fever, unspecified Resul ts for this AM AGRICULTURAL SERVICE TECHNICIAN fever cause procedure are i n the results section. FERRITIN SERUM STAT 05/08/2020 10:56 Fever, unspecified Res ults for this AM AGRICULTURAL SERVICE TECHNICIAN fever cause procedure are i n the results section. MAGNESIUM STAT Add-On 05/08/2020 10:56 Acute intractable Result s for this AM AGRICULTURAL SERVICE TECHNICIAN headache, procedure are i n unspecified the results headache type section. Fever, unspecified fever cause LIPASE STAT 05/08/2020 10:56 Fever, unspecified Resul ts for this AM AGRICULTURAL SERVICE TECHNICIAN fever cause procedure are i n the results section. LACTATE DEHYDROGENASE STAT 05/08/2020 10:56 Fever, unspecif ied Results for this AM AGRICULTURAL SERVICE TECHNICIAN fever cause procedure are i n the results section. documented in this encounter Results CT Head W/O Contrast (05/08/2020 11:30 AM AGRICULTURAL SERVICE TECHNICIAN) Specimen Impressions Performed At No evidence of acute intracranial proces s. PACS/VR/DOSE RL: [id number] AFC: [id number] Electronically signed by Jared López MD at 2019 12:04 PM Narrative Performed At This result has an attachment that is no t available. CT HEAD WO CONTRAST PACS/VR/DOSE HISTORY: Head trauma, minor, GCS>=13, high clinical ri sk, initial exam Ordering physician: EDGAR GARVIN COMPARISON: None. TECHNIQUE: Routine CT of the brain without IV contrast . CT scan was performed according to ALARA (as low as re asonably achievable) principle. RESULT: There is no evidence of large intraparenchymal hemorrh age, extra-axial fluid collection, or acute territorial infarct. There is no mass effect or midline shift. There is no depressed cranial fracture. The visualized extracranial soft tissues are grossly normal. The ventricles and sulci are within normal limits. The visualized paranasal sinuses and mastoid air cells are grossly clear. Procedure Note [facility], Radiant Results Inft User - 2019 12:05 PM AGRICULTURAL SERVICE TECHNICIAN CT HEAD WO CONTRAST HISTORY: Head trauma, minor, GCS>=13, hi gh clinical risk, initial exam Ordering physician: EDGAR GARVIN COMPARISON: None. TECHNIQUE: Routine CT of the brain witho ut IV contrast. CT scan was performed according to ALARA (as low as reasonably achievable) principle. RESULT: There is no evidence of large intraparen chymal hemorrhage, extra-axial fluid collection, or acute territorial i nfarct. There is no mass effect or midline shift. There is no depressed cranial fracture. The visualized extracranial soft tissues are grossly normal. The ventricles and sulci are within norm al limits. The visualized paranasal sinuses and mas toid air cells are grossly clear. IMPRESSION No evidence of acute intracranial proces s. RL: [id number] AFC: [id number] Performing Organization Address City/State/Zipcode Phone Number PACS/VR/DOSE XR CERVICAL SPINE 3 VW (05/08/2020 11:30 AM AGRICULTURAL SERVICE TECHNICIAN) Specimen Impressions Performed At No evidence of displaced fracture or mal alignment. PACS/VR/DOSE RL: [id number] AFC: [id number] Electronically signed by Jared López MD at 2019 12:05 PM Narrative Performed At This result has an attachment that is no t available. CERVICAL SPINE X-RAY PACS/VR/DOSE HISTORY: Neck pain pain, concern for fracture Ordering physician: EDGAR GARVIN TECHNIQUE: Frontal, lateral, and open-mouth views. Counting reference: Craniocervical junction. COMPARISON: None. FINDINGS: Evaluation is made to the bottom of C7. There is no displaced fracture or spondylolisthesis. T he visualized dens appears intact. Normal cervical lordosis is visualized. The vertebral alignment is intact. The vertebral body and disc space heights are preserve d. There is no uncovertebral or facet arthropathy. The prevertebral space is unremarkable. Procedure Note [facility], Radiant Results Inft User - 2019 12:06 PM AGRICULTURAL SERVICE TECHNICIAN CERVICAL SPINE X-RAY HISTORY: Neck pain pain, concern for fra cture Ordering physician: EDGAR GARVIN TECHNIQUE: Frontal, lateral, and open-mo uth views. Counting reference: Craniocervical junc tion. COMPARISON: None. FINDINGS: Evaluation is made to the bottom of C7. There is no displaced fracture or spondy lolisthesis. The visualized dens appears intact. Normal cervical lordosis is visualized. The vertebral alignment is intact. The vertebral body and disc space height s are preserved. There is no uncovertebral or facet arthropathy. The prevertebral space is unremarkable. IMPRESSION No evidence of displaced fracture or mal alignment. RL: [id number] AFC: [id number] Performing Organization Address City/[facility] Phone Number PACS/VR/DOSE Chest 1 View (05/08/2020 11:03 AM AGRICULTURAL SERVICE TECHNICIAN) Specimen Impressions Performed At No acute intrapulmonary process. PACS/VR/DOSE 12 :01 PM Narrative Performed At This result has an attachment that is no t available. CLINICAL HISTORY: PACS/VR/DOSE hypoxia COMPARISON: None TECHNIQUE: Portable view of the chest performed at 05/08/2020 10: 30 AM FINDINGS: There are no focal areas of consolidation, edema, or pneumothorax. No appreciable effusions. Heart and mediastinal structures unremarkable. Procedure Note [facility], Radiant Results Inft User - 2019 12:02 PM AGRICULTURAL SERVICE TECHNICIAN CLINICAL HISTORY: hypoxia COMPARISON: None TECHNIQUE: Portable view of the chest performed at 05/08/2020 10:30 AM FINDINGS: There are no focal areas of consolidati on, edema, or pneumothorax. No appreciable effusions. Heart and mediastinal structures unremar kable. IMPRESSION No acute intrapulmonary process. Performing Organization Address City/State/Zipcode Phone Number [employer]S/VR/DOSE MAGNESIUM (05/08/2020 10:56 AM AGRICULTURAL SERVICE TECHNICIAN) Pathologist [facility] nature MAGNESIUM 1.9 1.7 - 2.4 mg/dL [facility] Specimen Blood - VENOUS Performing Organization Address City/[facility]/Zipcode Phone Number [facility] CLIA: [id number] [place] [address] ADC,CLC OR LCC ONLY - INFLUENZA A & B DIRECT ANTIGEN (05/08/2020 10:56 AM AGRICULTURAL SERVICE TECHNICIAN) Pathologist Sig nature Influenza A Negative Negative [facility] Influenza B Negative Negative [facility] Specimen Swab - NASOPHARYNGEAL SWAB Performing Organization Address City/[facility] Facility[facility] Phone Number [facility] CLIA: [id number] [place] [address] COVID-19 (ID NOW RAPID TESTING) (05/08/2020 10:56 AM AGRICULTURAL SERVICE TECHNICIAN) SARS-CoV-2 Rapid ID Not Detected Not Detected [facility] Specimen Swab - NASOPHARYNGEAL SWAB Narrative Performed At ID NOW COVID-19 Assay is an isothermal nucleic [facility] acid amplification test intended for the qualitative detection of nucleic acid from SARS-CoV-2 viral RNA in nasopharyngeal (ARMATURE VARNISHER) specimens. It is used under Emergency Use [...] testing if clinically indicated. Performing Organization Address [facility] Phone Number [facility] CLIA: [id number] [place] [address] FERRITIN SERUM (05/08/2020 10:56 AM AGRICULTURAL SERVICE TECHNICIAN) Pathologist Sig nature FERRITIN 18.8 6.0 - 137.0 ng/mL [facility] Specimen Blood - VENOUS Narrative Performed At [facility] has been reported to cause a negative [facility] bias, interpret results relative to patient's use of biotin. Performing Organization Address City/[facility] Phone Number [facility] CLIA: [id number] [place] [address] LACTATE DEHYDROGENASE (05/08/2020 10:56 AM AGRICULTURAL SERVICE TECHNICIAN) Pathologist Sig nature LDH 447 300 - 600 U/L [facility] Specimen Blood - VENOUS Performing Organization Address [facility] Phone Number [facility] CLIA: [id number] [place] [address] D-DIMER (05/08/2020 10:56 AM AGRICULTURAL SERVICE TECHNICIAN) Pathologist Sig nature D-DIMER <0.27 <0.41 g/mL (FEU) [facility] Specimen Blood - VENOUS Narrative Performed At This test may be used in conjunction with a [facility] clinical pretest probability (PTP) assessment model [...] in forming a diagnosis. Performing Organization Address City/[facility] Phone Number [facility] CLIA: [id number] [place] [address] N-TERMINAL PRO-BNP (05/08/2020 10:56 AM AGRICULTURAL SERVICE TECHNICIAN) Pathologist Sig nature NT-proBNP 41 <=125 pg/mL [facility] Specimen Blood - VENOUS Narrative Performed At Biotin has been reported to cause a negative [facility] bias, interpret results relative to patient's use of biotin. Performing Organization Address City/[facility]/Zipcode Phone Number [facility] CLIA: [id number] [place] [address] Prothrombin Time (PT) / INR (05/08/2020 10:56 AM AGRICULTURAL SERVICE TECHNICIAN) PROTIME PATIENT 12.4 12.0 - 14.7 [facility] LABORATORY INR 1.0Comment: Normal [facility] INR <1.1; Warfarin [facility] Therapeutic range LABORATORY 2.0 to 3.0 or 2.5 to 3.5, depending upon the indications. Specimen Blood - VENOUS Performing Organization Address City/[facility] Phone Number [facility] CLIA: [id number] [place] [address] aPTT (05/08/2020 10:56 AM AGRICULTURAL SERVICE TECHNICIAN) Pathologist [facility] APTT Patient 25 23 - 38 Seconds [facility] Specimen Blood - VENOUS Narrative Performed At [facility] patient population mean normal value [facility] for aPTT is 30 seconds. Performing Organization Address [facility] Facility[facility] Phone Number [facility] CLIA: [id number] [place] [address] FIBRINOGEN (05/08/2020 10:56 AM AGRICULTURAL SERVICE TECHNICIAN) [facility] Fibrinogen 275 214 - 470 mg/dL [facility] Specimen Blood - VENOUS Performing Organization Address [facility] Phone Number [facility] CLIA: [id number] [place] [address] Troponin I (05/08/2020 10:56 AM AGRICULTURAL SERVICE TECHNICIAN) [facility] TROPONIN I <0.012 <=0.034 ng/mL [facility] Specimen Blood - VENOUS Narrative Performed At Equal or Less than 0.034 ng/ml---Normal [facility] Note: Cardiac troponin begins to rise [...] patient's use of biotin. Performing Organization Address [facility] Facility[facility] Phone Number [facility] CLIA: [id number] [place] [address] Lipase Serum (05/08/2020 10:56 AM AGRICULTURAL SERVICE TECHNICIAN) Pathologist Sig nature LIPASE 56 0 - 220 U/L [facility] Specimen Blood - VENOUS Performing Organization Address [facility] Phone Number [facility] CLIA: [id number] [place] [address] Hepatic Function Panel (ALB, T.PRO, BILI T, BU/BC, ALT, AST, ALK PHOS) (05/08/2020 10:56 AM AGRICULTURAL SERVICE TECHNICIAN) Pathologist Sig [facility] TOTAL BILI 0.6 0.1 - 1.1 mg/dL [facility] BILI UNCON 0.5 0.1 - 1.1 mg/dL [facility] BILI CONJ 0.0 0.0 - 0.3 mg/dL [facility] T PROTEIN 7.8 6.3 - 8.2 g/dL [facility] ALBUMIN 4.5 3.5 - 5.0 g/dL [facility] ALK PHOS 87 34 - 122 U/L [facility] ALTv 22 5 - 35 U/L [facility] AST(SGOT) 42 (H) 13 - 40 U/L [facility] Specimen Blood - VENOUS Performing Organization Address [facility] Phone Number [facility] CLIA: [id number] [place] [address] Basic Metabolic Panel (NA, K, CL, CO2, GLUCOSE, BUN, CREATININE, CA) (05/08/2020 10:56 AM AGRICULTURAL SERVICE TECHNICIAN) Pathologist Sig Infogram NA 139 135 - 145 mmol/L [facility] K 4.0 3.5 - 5.0 mmol/L [facility] CL 105 98 - 108 mmol/L [facility] CO2 TOTAL 23 23 - 31 mmol/L [facility] AGAP 11 2 - 16 [facility] BUN 12 7 - 23 mg/dL [facility] GLUCOSE 94 70 - 110 mg/dL [facility] CREATININE 0.70 0.50 - 1.04 [facility] mg/dL [facility] CALCIUM 9.6 8.6 - 10.6 mg/dL [facility] eGFR Calculation 102.0 mL/min/1.73m2 [facility] (Non-) [facility] Y eGFR Calculation 123.6 mL/min/1.73m2 [facility] () [facility] Specimen Blood - VENOUS Narrative Performed At Association of Glomerular Filtration Rate (GFR) [facility] and Staging of Kidney Disease* [...] tests). Performing Organization Address City/State/Zipcode Phone Number [facility] CLIA: [id number] [place] [address] CBC with Differential (05/08/2020 10:56 AM AGRICULTURAL SERVICE TECHNICIAN) [facility] WBC 7.84 4.30 - 11.10 [facility] 10*3/L [facility] RBC 4.40 3.93 - 5.25 [facility] 10*6/L [facility] HGB 12.5 11.6 - 15.0 g/dL [facility] HCT 38.6 35.7 - 45.2 % [facility] MCV 87.7 80.6 - 95.5 fL [facility] MCH 28.4 25.9 - 32.8 pg [facility] MCHC 32.4 31.6 - 35.1 g/dL [facility] RDW-SD 46.9 39.0 - 49.9 fL [facility] RDW-CV 14.6 12.0 - 15.5 % [facility] PLT 368 (H) 166 - 358 [facility] 10*3/L [facility] MPV 9.6 9.5 - 12.9 fL [facility] NRBC/100 WBC 0.0 0.0 - 10.0 /100 [facility] WBCs [facility] NRBC x10^3 <0.01 10*3/L [facility] GRAN MAT (NEUT) % 57.9 % [facility] IMM GRAN % 0.80 % [facility] LYMPH % 31.0 % [facility] MONO % 6.1 % [facility] EOS % 3.6 % [facility] BASO % 0.6 % [facility] GRAN MAT x10^3(ANC) 4.54 1.88 - 7.09 [facility] 10*3/uL [facility] IMM GRAN x10^3 0.06 0.00 - 0.06 [facility] 10*3/uL [facility] LYMPH x10^3 2.43 1.32 - 3.29 [facility] 10*3/uL HOSPITAL LABORATORY MONO x10^3 0.48 0.33 - 0.92 [facility] 10*3/uL HOSPITAL LABORATORY EOS x10^3 0.28 0.03 - 0.39 [facility] 10*3/uL HOSPITAL LABORATORY BASO x10^3 0.05 0.01 - 0.07 [facility] 10*3/uL [facility] Specimen Blood - VENOUS Performing Organization Address City/State/Zipcode Phone Number [facility] CLIA: [id number] [place] [address] POCT Test (05/08/2020 10:56 AM AGRICULTURAL SERVICE TECHNICIAN) Pathologist Sig nature POCT PREG negative On board controls acceptable present with C Line POCT PREG LOT # [id number] POCT PREG TEST DATE 09/09/2021 Specimen Urine - URINE, CLEAN CATCH Urinalysis (05/08/2020 10:56 AM AGRICULTURAL SERVICE TECHNICIAN) Pathologist Sig nature APPEARANCE Clear Clear [facility] COLOR Yellow Yellow [facility] PH 7.0 4.8 - 8.0 [facility] SP GRAVITY 1.016 1.003 - 1.030 [facility] GLU U QUAL Normal Normal [facility] BLOOD Negative Negative [facility] KETONES Negative Negative [facility] PROTEIN Negative Negative [facility] UROBILIN Normal Normal [facility] BILIRUBIN Negative Negative [facility] NITRITE Negative Negative [facility] LEUK ANJELICA Negative Negative [facility] RBC/HPF 1 0 - 3 HPF [facility] WBC/HPF <1 0 - 5 HPF [facility] BACTERIA Negative Negative [facility] MUCOUS Slight (A) Negative LPF [facility] SQ EPITH 6 HPF [facility] Specimen Urine - URINE, CLEAN CATCH Performing Organization Address City/State/Zipcode Phone Number [facility] CLIA: [id number] [place], [place] [id number] LABORATORY [address] documented in this encounter Visit Diagnoses Diagnosis Acute intractable headache, unspecified headache type - Primary Fever, unspecified fever cause documented in this encounter Administered Medications Medication Order MAR Action Action Date Dose Rate Site yujilvqern-brvpsdusmeqhe-xzlx Given 05/08/2020 10:57 AM AGRICULTURAL SERVICE TECHNICIAN 1 ta blet (ESGIC) 50-325-40 mg tablet 1 tablet 1 tablet, Oral, ONCE NOW, 1 dose, 05/08/20 at 1130, Routine ketorolac (TORADOL) injection 30 mg Given 05/08/2020 10:57 AM AGRICULTURAL SERVICE TECHNICIAN 30 mg 30 mg, Slow IV Push, ONCE, 1 dose, 05/08/20 at 1130, Routine, 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 Restricted medication: EDGAR GARVIN G magnesium sulfate in D5W 1 gram/100 mL RTU IV Given 05/08/20 20 11:56 AM AGRICULTURAL SERVICE TECHNICIAN 1 g Piggyback 1 g 1 g, IV Piggyback, ONCE, 1 dose, 05/08/20 at 1230, 100 mL NaCl 0.9% (NS) IV infusion New Bag 05/08/2020 10:57 AM AGRICULTURAL SERVICE TECHNICIAN 1,000 m L 1000 mL/hr 1,000 mL at 1,000 mL/hr, IV Infusion, ONCE, 1 dose, 05/08/20 at 1130, [place] ondansetron (ZOFRAN (PF)) injection 4 mg Given 05/08/2020 10:57 AM AGRICULTURAL SERVICE TECHNICIAN 4 mg 4 mg, Slow IV Push, ONCE, 1 dose, 05/08/20 at 1130, [place] documented in this encounter Additional Health Concerns Infection Onset Date Last Indicated Resolved Time COVID-19 Rule Out 05/08/2020 05/08/2020 05/08/2020 11: 36 AM AGRICULTURAL SERVICE TECHNICIAN documented as of this encounter Insurance Payer Benefit Plan / Subscriber ID Effective Phone Address T ype Group Dates SAMMY CHRISTIANSON [id number] 2019-Pres [address] Medic aid [employer] [place] [id number] MANAGED MEDICAID [place], [place] documented as of this encounter
--- OUTSIDE RECORDS SUMMARY | 2020-05-10 08:22 | XMS REPORT | Summary of Care ---
:1995 Author Organization [facility] Address [address] [place] [id number] Care Team Providers Name Role Phone Jessica Baker Insurance Hmo Kassandra Dennis MD Primary Care Provider Encounter Details Date Type Department Care Team Description 05/04/2020 [facility] Roscoe Potts [place] MD [address] [facility], [address] MARIA LUISA [address] [place] [address] [place], [place] [phone] Allergies Active Allergy Reactions Severity Noted Date Comments Latex Rash 04/13/2020 Metoclopramide Hcl Anxiety 07/12/2019 Patient s ays she gets figity, angry and mean documented as of this encounter (statuses as of 05/09/2020) Medications Medication Sig Dispensed Refills Start Date [...] as of this encounter (statuses as of 05/09/2020) Active Problems Problem Noted Date Visual changes 05/07/2020 Headache 04/30/2020 Sinus tachycardia 04/13/2020 Abdominal pain 04/13/2020 Anxiety disorder, unspecified type 01/05/2020 Insomnia, unspecified type 01/05/2020 Other depression 08/13/2019 Cervical Papanicolaou smear negative within last 12 mo [facility] 06/19/2019 Overview: 12/2018 NIL pap , see scanned records documented as of this encounter (statuses as of 05/09/2020) Resolved Problems Problem Noted Date Resolved Date [...] as of this encounter (statuses as of 05/09/2020) Immunizations Name Administration Dates Next Due Influenza [...] in contact with Yes 05/08/2020 10:13 AM 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 documented as of this encounter Last Filed Vital Signs Not on filedocumented in this encounter Miscellaneous Notes Telephone Encounter - Rad Potts MD - 05/05/2020 10:08 AM CSTMychart message sent as follows Jose Martin Dyson, I remember seeing message regarding your metoprolol tablets running low at the same time when I gotthe message that nadolol is causing you a lot of headaches I have personally refilled it on 05/02/2020 to your pharmacy in [facility] in [place]. The prescription was sent as metoprolol XL 12.5 mg twice daily. I sent the prescription for 90 dayswith one refills also. When I checked on the status of the refill, it seems that the [facility] pharmacy has accepted and received a request. Please reach out to you pharmacy for the refills for metoprolol XL that you were taking before. With regards Dr Cisnerosectronically signed by Rad Potts MD at 05/05/2020 10:09 AM CSTTelephone Encounter - Linnea Loo, RN - 05/04/2020 4:24 PM CSTPatient states that she is still having elevated heart rate despite changing medication back to Toprol XL 12.5 mg bid. She reports hr is going high like 100s and it is a bounding pulse. Advised patient I would forward her message to the doctor. HEAD IRRIGATOR documented in this encounter Plan of Treatment Date Type Specialty Care Team Description 05/19/2020 Telemedicine Visit Nephrology Lopez Hitchcock M D [address] [place] [phone] 06/02/2020 Office Visit Cardiology Rad Potts MD [address] [place] [address] 08/11/2020 Office Visit Obstetrics & Quiñone[place], Munir Johnson Gynecology [address] [facility] [address] [place], [place] [address] Health Maintenance Due Date [...] Out 05/08/2020 05/08/2020 05/08/2020 11: 36 AM OVERHEAD IRRIGATOR documented as of this encounter Insurance Payer Benefit Plan / Subscriber ID Effective Phone Address [employer] Dates SAMMY CHRISTIANSON [id number] 2019-Pres [address] Medic aid [place]ALTHCARE [place]ARE [place] [id number] MANAGED MEDICAID [place], [place] documented as of this encounter
[2020-05-10 09:14] LABS: Urine Blood TRACE (NEG); Urine Glucose NEGATIVE (NEG); Urine Protein NEGATIVE (NEG); Urine pH 5.5 (5.0-7.0)
[2020-05-10] MEDS ORDERED: MEPERIDINE HCL 50 MG/ML ONE (09:28)
[2020-05-10] MEDS ORDERED: DIPHENHYDRAMINE 50 MG/ML VIAL ONE (09:28)
[2020-05-10] MEDS ORDERED: NA CHLORIDE 0.9% 1,000 ML ONE (09:28)
[2020-05-10 09:39] LABS: Absolute Lymphocytes (CBC) 1.9 K/uL (0.7-4.9); Basophils % 0.9 % (0-1.3); Hematocrit 38.1 % (36.0-45.0); Lymphocytes % 23.4 % (15.3-44.8); MPV 8.3 fL (7.6-11.3); RBC Red Blood Cell Count 4.43 M/uL (3.86-4.86)
[2020-05-10 09:40] LABS: Potassium 4.4 mmol/L (3.5-5.1)
--- NOTE | 2020-05-10 09:54 | RAD REPORT ---
EXAM DESCRIPTION: CT - Head Brain Wo Cont - 05/10/2020 9:31 am CLINICAL HISTORY: HEADACHEfor 3 days with vomiting COMPARISON: Head angio dated 05/10/2020 TECHNIQUE: Axial 5 mm thick images of the head were obtained without IV contrast. All CT scans are performed using dose optimization technique as appropriate and may include automated exposure control or mA/KV adjustment according to patient size. FINDINGS: No intracranial hemorrhage, mass, edema or shift of mid-line structures. No acute infarcti on changes seen. No abnormal extra-axial fluid collections. Ventricles are normal. Mastoid air cells and visualized portions of the paranasal sinuses are clear. No acute bony findings. IMPRESSION: Negative non-contrast CT head examination.
--- NOTE | 2020-05-10 09:56 | RAD REPORT ---
EXAM DESCRIPTION: CT - Neck Angio - 05/10/2020 9:31 am CLINICAL HISTORY: HEADACHE TECHNIQUE: During dynamic enhancement using nonionic IV contrast, axial 2 mm thick images of the nec k were obtained. Sagittal and axial reconstruction images were generated using MIP technique and revi ewed. All CT scans are performed using dose optimization technique as appropriate and may include automated exposure control or mA/KV adjustment according to patient size. COMPARISON: CT head same date FINDINGS: No aneurysm or vascular malformation identified. No carotid or vertebral dissection. No aortic arch or great vessel origin abnormality seen. Vertebral artery origins unremarkable as well . No stenosis, vasculitis or other significant carotid artery finding. No focal abnormality of either vertebral artery. Basilar artery is normal. IMPRESSION: Negative CT angio neck examination.
--- NOTE | 2020-05-10 09:57 | RAD REPORT ---
EXAM DESCRIPTION: CT - Head angio - 05/10/2020 9:31 am CLINICAL HISTORY: HEADACHE TECHNIQUE: During dynamic enhancement using nonionic IV contrast, axial 1 millimeter thick images of the head were obtained. Sagittal and axial reconstruction images were generated using MIP technique and reviewed. All CT scans are performed using dose optimization technique as appropriate and may include automated exposure control or mA/KV adjustment according to patient size. COMPARISON: CT head same date, CTA neck same date FINDINGS: No aneurysm or vascular malformation identified. Major venous sinuses are patent. No stenosis, named branch occlusion, vasculitis or other significant vascular finding identifiable. IMPRESSION: Negative CT angio head examination.
--- NOTE | 2020-05-10 10:21 | ER ---
Nurse's Notes [facility] Name: Natanael Dyson Age: 25 yrs Sex: Female : 1995 Arrival Date: 05/10/2020 Time: 08:02 Bed 20 Private MD: Diagnosis: Migraine Presentation: 05/10 08:16 Chief complaint: Patient states: worst headache ever x 3 days, puking for 3 days and up dm5 all night with pain. pt is tears. Coronavirus screen: Client denies travel out of the [place] in the last 14 days. vomiting. Client presents with at least one sign or symptom that may indicate coronavirus-19. Standard/surgical mask placed on the client. Provider contacted for isolation considerations. Ebola Screen: Patient negative for fever greater than or equal to 101.5 degrees Fahrenheit, and additional compatible Ebola Virus Disease symptoms Patient denies exposure to infectious person. Patient denies travel to an Ebola-affected area in the 21 days before illness onset. No symptoms or risks identified at this time. Initial Sepsis Screen: Does the patient meet any 2 criteria? RR > 20 per min. HR > 90 bpm. No. Patient's initial sepsis screen is negative. Does the patient have a suspected source of infection? No. Patient's initial sepsis screen is negative. Risk Assessment: Do you want to hurt yourself or someone else? Patient reports no desire to harm self or others. Onset of symptoms was May 08, 2020. 08:16 Method Of Arrival: Ambulatory dm5 08:16 Acuity: THIERNO 3 dm5 Triage Assessment: 08:16 Headache History: Denies prior headaches. General: Appears uncomfortable, Behavior is dm5 cooperative, crying. Pain: Complains of pain in head Pain currently is 10 out of 10 on a pain scale. Pain began 2-3 days ago. Also complains of. Neuro: Level of Consciousness is awake, alert, obeys commands, Oriented to person, place, time. Respiratory: Airway is patent Respiratory effort is even, unlabored, relaxed, Respiratory pattern is regular, symmetrical. Derm: Skin is pink, warm \T\ dry. DIRECTOR COMPLIANCE: 10:38 test negative ll1 Historical: - Allergies: 08:31 Reglan; dm5 - Home Meds: 08:31 Metoprolol Tartrate Oral [Active]; dm5 - PMHx: 08:31 Asthma; Kidney stones; Tachycardia; dm5 - PSHx: 08:31 None; dm5 - Immunization history:: Adult Immunizations up to date. - Family history:: not pertinent. - Social history:: Smoking status: Patient denies any tobacco usage or history of. - Hospitalizations: : No recent hospitalization is reported. Screenin:22 Abuse screen: Denies threats or abuse. Nutritional screening: No deficits noted. ll1 Tuberculosis screening: No symptoms or risk factors identified. Fall Risk IV access (20 points). Total Thomas Fall Scale indicates No Risk (0-24 pts). Assessment: 10:15 Reassessment: Patient and/or family updated on plan of care and expected duration. Pain ll1 level reassessed. Patient is alert, oriented x 3, equal unlabored respirations, skin warm/dry/pink. Patient states feeling better. Vital Signs: 08:16 BP 131 / 99; Pulse 112; Resp 22; Temp 98.8; Pulse Ox 100% on R/A; Weight 58.97 kg; dm5 Height 5 ft. 2 in. (157.48 cm); Pain 10/10; 10:21 Pulse 81; Resp 17; Pulse Ox 100% ; ll1 10:38 BP 111 / 71; Pulse 80; Resp 16; Pulse Ox 100% ; Pain 5/10; ll1 08:16 Body Mass Index 23.78 (58.97 kg, 157.48 cm) dm5 Giovana Coma Score: 10:19 Eye Response: spontaneous(4). Verbal Response: oriented(5). Motor Response: obeys rn commands(6). Total: 15. ED Course: 08:02 Patient arrived in ED. rg4 08:03 Harjit Samson MD is Attending Physician. rn 08:16 Arm band placed on right wrist. Patient placed in an exam room, on a stretcher. dm5 08:21 Triage completed. dm5 08:46 Missed attempt(s): 20 gauge in right antecubital area. Bleeding controlled, band aid dm5 applied, catheter tip intact. 08:47 Sandie Wilkes, ROSEY is Primary Nurse. dm5 09:00 Missed attempt(s): 20 gauge in left antecubital area. Bleeding controlled, band aid dh3 applied, catheter tip intact. 09:12 Initial lab(s) drawn, by me, sent to lab. Inserted saline lock: 22 gauge in right dh3 forearm, using aseptic technique. Blood collected. 09:30 CT Head Brain wo Cont In Process Unspecified. EDMS 09:30 CT Neck Angio In Process Unspecified. EDMS 09:30 CT Head Angio In Process Unspecified. EDMS 10:22 Patient has correct armband on for positive identification. Bed in low position. Call ll1 light in reach. Side rails up X 1. Pulse ox on. NIBP on. 10:39 No provider procedures requiring assistance completed. IV discontinued, intact, ll1 bleeding controlled, No redness/swelling at site. Pressure dressing applied. Administered Medications: 09:13 Drug: NS 0.9% 1000 ml Route: IV; Rate: 1000 ml; Site: right forearm; jl7 10:39 Follow up: Response: No adverse reaction; RASS: Alert and Calm (0); IV Status: ll1 Completed infusion; IV Intake: 980ml 09:16 Drug: Demerol 50 mg Route: IVP; Site: right forearm; jl7 10:21 Follow up: Response: No adverse reaction; Pain is decreased; RASS: Alert and Calm (0) ll1 09:20 Drug: Benadryl 12.5 mg Route: IVP; Site: right forearm; jl7 10:21 Follow up: Response: No adverse reaction; RASS: Alert and Calm (0) ll1 10:21 Drug: morphine 4 mg Route: IVP; Site: right antecubital; ll1 10:40 Follow up: Response: No adverse reaction; Pain is decreased; RASS: Alert and Calm (0) 1 10:21 Drug: Decadron - Dexamethasone 10 mg Route: IVP; Site: right antecubital; ll1 10:40 Follow up: Response: No adverse reaction; RASS: Alert and Calm (0) ll1 Intake: 10:39 IV: 980ml; Total: 980ml. ll1 Outcome: 10:21 Discharge ordered by . rn 10:39 Discharged to home ambulatory. ll1 10:39 Condition: stable 10:39 Discharge instructions given to patient, Instructed on discharge instructions, follow up and referral plans. Demonstrated understanding of instructions, follow-up care. 10:40 Patient left the ED. ll1 Signatures: Dispatcher [employer] Sandie Stark RN RN dm5 Harjit Samson MD MD rn Garcia, Rubi rg4 Matty Bee RN RN jl7 Oarlia García dh3 Brandi Cotter, RN RN ll1
--- NOTE | 2020-05-10 10:21 | EDPHYS ---
Physician Documentation [facility] Name: Natanael Dyson Age: 25 yrs Sex: Female : 1995 Arrival Date: 05/10/2020 Time: 08:02 Bed 20 Private MD: ED Physician Harjit Samson HPI: 05/10 08:45 This 25 yrs old Female presents to ER via Ambulatory with complaints of rn Headache. 08:45 The patient complains of pain to the forehead. The patient describes the headache as rn aching. Onset: The symptoms/episode began/occurred 3 day(s) ago. Associated signs and symptoms: Pertinent positives: nausea, Pertinent negatives: altered mental status, fever, neck stiffness, rash, vision changes, vision loss, vertigo. Severity of symptoms: At its worst the pain was moderate, in the emergency department the pain is unchanged. The symptoms are alleviated by nothing. the symptoms are aggravated by lights, movement. The patient has experienced similar episodes in the past. The patient has not recently seen a physician. Reports headache/right frontal, began 3 days ago, slowly worsening, reports headaches/migraines about once or twice a month but rarely has to come to ER for it. No recent head injury. No fever/vomiting/neck stiffness. Reports similar to previous migraines just worse than typical and meds at home not helping. . 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 - Family history:: not pertinent. - Social history:: Smoking status: Patient denies any tobacco usage or history of. - Hospitalizations: : No recent hospitalization is reported. ROS: 08:45 Constitutional: Negative for fever, chills, and weight loss, Eyes: Negative for injury, rn pain, redness, and discharge, ENT: Negative for injury, pain, and discharge, Neck: Negative for injury, and swelling, Cardiovascular: Negative for chest pain, palpitations, and edema, Respiratory: Negative for shortness of breath, cough, wheezing, and pleuritic chest pain, Abdomen/GI: Negative for abdominal pain, vomiting, diarrhea, and constipation, MS/Extremity: Negative for injury and deformity, Skin: Negative for injury, rash, and discoloration, Neuro: Negative for numbness, tingling, and seizure. Exam: 08:45 Constitutional: This is a well developed, well nourished patient who is awake, alert, rn crying at times, then seems fine when walking to bathroom. Head/Face: Normocephalic, atraumatic. Eyes: Pupils equal round and reactive to light, extra-ocular motions intact. Lids and lashes normal. Conjunctiva and sclera are non-icteric and not injected. Cornea within normal limits. Periorbital areas with no swelling, redness, or edema. Neck: Trachea midline, no masses palpated, and no cervical lymphadenopathy. Supple, full range of motion without nuchal rigidity, or vertebral point tenderness. No Meningismus. Cardiovascular: Tachycardic (crying) and regular rhythm. No pulse deficits. Respiratory: Mild tachypnea (crying). No increased work of breathing, no retractions or nasal flaring. Abdomen/GI: soft, non-tender Skin: Warm, dry with normal turgor. Normal color with no rashes, no lesions, and no evidence of cellulitis. MS/ Extremity: Pulses equal, no cyanosis. Neurovascular intact. Full, normal range of motion. Equal circumference. Neuro: Awake and alert, GCS 15, oriented to person, place, time, and situation. Cranial nerves II-XII grossly intact. Motor strength 5/5 in all extremities. Sensory grossly intact. Cerebellar exam normal. Normal gait. Vital Signs: 08:16 BP 131 / 99; Pulse 112; Resp 22; Temp 98.8; Pulse Ox 100% on R/A; Weight 58.97 kg; dm5 Height 5 ft. 2 in. (157.48 cm); Pain 10/10; 10:21 Pulse 81; Resp 17; Pulse Ox 100% ; ll1 10:38 BP 111 / 71; Pulse 80; Resp 16; Pulse Ox 100% ; Pain 5/10; ll1 08:16 Body Mass Index 23.78 (58.97 kg, 157.48 cm) dm5 Henry Coma Score: 10:19 Eye Response: spontaneous(4). Verbal Response: oriented(5). Motor Response: obeys rn commands(6). Total: 15. MDM: 08:03 Patient medically screened. rn 10:19 Differential diagnosis: hypertensive headache, migraine, neoplasm, tension headache, rn vasomotor headache. Differential diagnosis: intracerebral hemorrhage. Data reviewed: vital signs, nurses notes, lab test result(s), radiologic studies, CT scan, and as a result, I will discharge patient. Counseling: I had a detailed discussion with the patient and/or guardian regarding: the historical points, exam findings, and any diagnostic results supporting the discharge/admit diagnosis, lab results, radiology results, the need for outpatient follow up, to return to the emergency department if symptoms worsen or persist or if there are any questions or concerns that arise at home. Response to treatment: the patient's symptoms have markedly improved after treatment, and as a result, I will discharge patient. Special discussion: I discussed with the patient/guardian in detail that at this point there is no indication for admission to the hospital. It is understood, however, that if the symptoms persist or worsen the patient needs to return immediately for re-evaluation. ED course: Pt markedly improved, smiling, improved vitals, neg ct head and ct head angio, afebrile, normal WBC, hx of migraines. Will dc home. . 05/10 08:21 Order name: CBC with Diff; Complete Time: 09:45 05/10 08:21 Order name: Basic Metabolic Panel; Complete Time: 09:45 05/10 08:21 Order name: CT Head Brain wo Cont; Complete Time: 10:05 05/10 08:21 Order name: CT Neck Angio; Complete Time: 10: 05/10 09:03 Order name: Urine Dipstick--Ancillary (enter results); Complete Time: 09:45 05/10 09:03 Order name: Urine --Ancillary (enter results); Complete Time: 09:45 05/10 08:21 Order name: IV Start; Complete Time: 09:19 rn 05/10 08:21 Order name: Urine Test (obtain specimen); Complete Time: 09:19 rn 05/10 08:21 Order name: CT Head Angio; Complete Time: 10:05 05/10 08:21 Order name: Urine Dipstick-Ancillary (obtain specimen); Complete Time: 09:19 rn Administered Medications: 09:13 Drug: NS 0.9% 1000 ml Route: IV; Rate: 1000 ml; Site: right forearm; jl7 10:39 Follow up: Response: No adverse reaction; RASS: Alert and Calm (0); IV Status: ll1 Completed infusion; IV Intake: 980ml 09:16 Drug: Demerol 50 mg Route: IVP; Site: right forearm; jl7 10:21 Follow up: Response: No adverse reaction; Pain is decreased; RASS: Alert and Calm (0) ll1 09:20 Drug: Benadryl 12.5 mg Route: IVP; Site: right forearm; jl7 10:21 Follow up: Response: No adverse reaction; RASS: Alert and Calm (0) ll1 10:21 Drug: morphine 4 mg Route: IVP; Site: right antecubital; ll1 10:40 Follow up: Response: No adverse reaction; Pain is decreased; RASS: Alert and Calm (0) ll1 10:21 Drug: Decadron - Dexamethasone 10 mg Route: IVP; Site: right antecubital; ll1 10:40 Follow up: Response: No adverse reaction; RASS: Alert and Calm (0) ll1 Disposition: 05/10/20 10:21 Discharged to Home. Impression: Migraine. - Condition is Stable. - Discharge Instructions: Migraine Headache. - Medication Reconciliation Form, Thank You Letter, Antibiotic Education, Prescription Opioid Use form. - Follow up: Private Physician; When: As needed; Reason: Recheck today's complaints, Re-evaluation by your physician. - Problem is an ongoing problem. - Symptoms have improved. Signatures: Dispatcher [employer] Sandie Willis RN RN dm5 Harjit Samson MD MD rn Leal, Jahala, RN RN jl7 Brandi Cotter, RN RN ll1 Corrections: (The following items were deleted from the chart) 10:40 10:21 05/10/2020 10:21 Discharged to Home. Impression: Migraine. Condition is Stable. ll1 Forms are Medication Reconciliation Form, Thank You Letter, Antibiotic Education, Prescription Opioid Use. Follow up: Private Physician; When: As needed; Reason: Recheck today's complaints, Re-evaluation by your physician. Problem is an ongoing problem. Symptoms have improved. rn
[2020-05-10] MEDS ORDERED: dexAMETHasone 10 MG/ML VIAL ONE (10:26)
[2020-05-10] MEDS ORDERED: MORPHINE 4 MG/ML SYR ONE (10:26)
[2020-05-10 10:44] VITALS: TEMP 98.8; O2SAT 100
[2020-05-10 10:47] VITALS: BP 111/71
== END 2020-05-10 10:40 | disposition home or self-care (01) ==
LOC: ER 08:00
DX: G43.909 Migraine, unspecified, not intractable, without status migrainosus (principal); Z88.8 Allergy status to other drugs, medicaments and biological substances
CPT/HCPCS: 85025; 80048; 36415; 81025; 81003; 70450; 70496; 70498; 99284; Q9967; J1200; J1100; J2175; J7030

== ENCOUNTER 2020-05-17 14:35 | Emergency (ER) | payer MEDICAID, SELFPAY ==
--- OUTSIDE RECORDS SUMMARY | 2020-05-17 14:44 | XMS REPORT | Continuity of Care Document ---
:1995 Author Organization [facility] t Address [address] [place] [address] [address] [place] [address] Care Team Providers Name Role Phone Sonny FELIX, A Attending Clinician Problems This patient has no known problems. Allergies, Adverse Reactions, Alerts This patient has no known allergies or adverse reactions. Medications This patient has no known medications. Procedures This patient has no known procedures. Encounters Start End Encounter Admission Attending Care Care Encounter Source Date/Time Date/Time Type Type Clinicians Facility Department ID 2020-05-16 2020-05-16 [facility] VICK Dennis [id number] 16:04:31 16:34:31 ne Visit [facility] [id number] [place] [id number] [place] [id number] [place] [address] One Results This patient has no known results.
--- OUTSIDE RECORDS SUMMARY | 2020-05-17 14:55 | XMS REPORT | Summary of Care ---
:1995 Author Organization [facility] Address [address] [place] [address] Care Team Providers Name Role Phone Jessica Baker Insurance Hmo Kassandra Dennis MD Primary Care Provider Reason for Visit Reason Comments Erroneous encounter-disregard Encounter Details Date Type Department Care Team Description 05/16/2020 Telemedicine Visit [facility] Family Gilberto Dennis ERRONEOUS Medicine - Maurice Cannon MD ENCOUNTER--DISREGAR [address] [place] [address] DR Goncalves (Primary Dx) [place] [phone] Allergies Active Allergy Reactions Severity Noted Date Comments Latex Rash 04/13/2020 Metoclopramide Hcl Anxiety 07/12/2019 Patient s ays she gets figity, angry and mean documented as of this encounter (statuses as of 05/16/2020) Medications Medication Sig Dispensed Refills Start Date [...] as of this encounter (statuses as of 05/16/2020) Active Problems Problem Noted Date Visual changes 05/07/2020 Headache 04/30/2020 Sinus tachycardia 04/13/2020 Abdominal pain 04/13/2020 Anxiety disorder, unspecified type 01/05/2020 Insomnia, unspecified type 01/05/2020 Other depression 08/13/2019 Cervical Papanicolaou smear negative within last 12 mo 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 documented as of this encounter Last Filed Vital Signs Not on filedocumented in this encounter Progress Notes Paz Dennis MD - 05/16/2020 4:00 PM CSTUnable to reach the patient for the video telehealth appointment (patient never joined the text link). She saw Neurology today for f/u of her headaches so I assume she no longer needs the visit. 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 [place], [place] [address] Health Maintenance Due Date Last Done Comments HPV VACCINES (1 - 2-dose series) 2006 PAP SMEAR 02/19/2016 INFLUENZA VACCINE (#1) 2020 02/06/2019 Depression Screening 09/01/2020 09/02/2019, 09/02/2019 DTaP,Tdap,and Td Vaccines (2 - Td) 05/21/2029 05/21/2019 PNEUMOCOCCAL 0-64 YEARS COMBINED SERIES Discontinued documented as of this encounter Results Not on filedocumented in this encounter Visit Diagnoses Diagnosis ERRONEOUS ENCOUNTER--DISREGARD - Primary documented in this encounter Insurance Payer Benefit Plan / Subscriber ID Effective Phone Address T ype Group Dates SAMMY CHRISTIANSON [id number] 2019-Pres [address] Medic aid [place] [id number] MANAGED MEDICAID [place], [place] documented as of this encounter
--- OUTSIDE RECORDS SUMMARY | 2020-05-17 14:55 | XMS REPORT | Summary of Care ---
:1995 Author Organization [facility] Address [address] [place] [address] Care Team Providers Name Role Phone Jessica Baker Insurance Hmo Kassandra Dennis MD Primary Care Provider Reason for Visit Reason Comments Erroneous encounter-disregard Encounter Details Date Type Department Care Team Description 05/16/[address] 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 NG FORGER documented in this encounter Plan of Treatment Date Type Specialty Care Team Description 05/19/2020 Telemedicine Visit Nephrology Lopez Hitchcock M D [address] [place] [phone] 06/02/2020 Office Visit Cardiology Rad Potts MD [address] [place] [address] 08/11/2020 Office Visit Obstetrics & Quiñonez, Munir Johnson [facility]necology [address] [facility] [facility] [facility] [place], [place] [address] Health Maintenance Due Date [...] Address T ype Group Dates SAMMY CHRISTIANSON [id number] 2019-Pres [address] Medic aid [place] [id number] MANAGED MEDICAID [place] documented as of this encounter
[2020-05-17] MEDS ORDERED: DIPHENHYDRAMINE 50 MG/ML VIAL ONE (15:34)
[2020-05-17] MEDS ORDERED: NA CHLORIDE 0.9% 1,000 ML ONE (15:34)
[2020-05-17] MEDS ORDERED: dexAMETHasone 10 MG/ML VIAL ONE (15:34)
[2020-05-17] MEDS ORDERED: DIAZEPAM 10 MG/2 ML INJ SYRINGE ONE (17:11)
[2020-05-17] MEDS ORDERED: KETOROLAC 30 MG/ML INJ ONE (17:11)
--- NOTE | 2020-05-17 17:26 | ER ---
Nurse's Notes [facility] Name: Natanael Dyson Age: 25 yrs Sex: Female : 1995 Arrival Date: 05/17/2020 Time: 14:38 Bed 25 Private MD: Diagnosis: Headache Presentation: 05/17 14:50 Chief complaint: Patient states: i was in the other day for a really bad migraine and tw2 it went away but i just found out my mom and i have been crying for 4 days. Coronavirus screen: nausea, vomiting. Client presents with at least one sign or symptom that may indicate coronavirus-19. Standard/surgical mask placed on the client. Provider contacted for isolation considerations. Ebola Screen: Patient denies travel to an Ebola-affected area in the 21 days before illness onset. Initial Sepsis Screen: Does the patient meet any 2 criteria? No. Patient's initial sepsis screen is negative. Does the patient have a suspected source of infection? No. Patient's initial sepsis screen is negative. Risk Assessment: Do you want to hurt yourself or someone else? Patient reports no desire to harm self or others. Onset of symptoms was May 17, 2020. 14:50 Method Of Arrival: Ambulatory tw2 14:50 Acuity: THIERNO 3 tw2 Triage Assessment: 14:54 General: Appears uncomfortable, slender, Behavior is crying. Pain: Complains of pain in tw2 forehead. 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 - Social history:: Smoking status: . Screenin:00 Abuse screen: Denies threats or abuse. Denies injuries from another. Nutritional zb screening: No deficits noted. Tuberculosis screening: No symptoms or risk factors identified. Fall Risk None identified. Assessment: 15:00 General: Appears in no apparent distress. uncomfortable, Behavior is cooperative, zb anxious. Pain: Complains of pain in forehead Pain does not radiate. Pain currently is 5 out of 10 on a pain scale. Quality of pain is described as aching, pressure. Neuro: Level of Consciousness is awake, alert, obeys commands, Oriented to person, place, time, situation. Cardiovascular: Capillary refill < 3 seconds in bilateral fingers Patient's skin is warm and dry. Respiratory: Airway is patent Respiratory effort is even, unlabored, Respiratory pattern is regular, symmetrical. GI: Abdomen is flat, non-distended, Bowel sounds present X 4 quads. : No signs and/or symptoms were reported regarding the genitourinary system. EENT: No signs and/or symptoms were reported regarding the EENT system. Derm: Skin is intact, is healthy with good turgor, Skin is dry, Skin is normal, Skin temperature is warm. Musculoskeletal: Circulation, motion, and sensation intact. Capillary refill < 3 seconds, in bilateral fingers. Range of motion: intact in all extremities. 16:00 Reassessment: Patient appears in no apparent distress at this time. Patient and/or zb family updated on plan of care and expected duration. Pain level reassessed. Patient is alert, oriented x 3, equal unlabored respirations, skin warm/dry/pink. c/o of pain medication given. warm blanket given. 17:00 Reassessment: Patient appears in no apparent distress at this time. Patient and/or zb family updated on plan of care and expected duration. Pain level reassessed. Patient is alert, oriented x 3, equal unlabored respirations, skin warm/dry/pink. c/o of pain. notified ECP. IV continue to infuse. 17:10 Reassessment: ECP at bedside discusing POC. pt states she is feeling better. zb Vital Signs: 14:53 BP 129 / 79; Pulse 74; Resp 18; Temp 98.2(TE); Pulse Ox 100% on R/A; Weight 60.33 kg tw2 (R); Height 5 ft. 2 in. (157.48 cm); Pain 9/10; 15:53 BP 121 / 78; Pulse 74; Resp 18; Pulse Ox 100% on R/A; zb 17:00 BP 117 / 71; Pulse 77; Resp 16; Pulse Ox 100% on R/A; zb 14:53 Body Mass Index 24.33 (60.33 kg, 157.48 cm) tw2 ED Course: 14:38 Patient arrived in ED. ag3 14:52 Triage completed. tw2 14:53 Arm band placed on. tw2 14:56 Destin Davis NP is PHCP. pm1 14:56 Justin Estrella MD is Attending Physician. pm1 14:57 Sharlene Worthington RN is Primary Nurse. zb 16:00 Inserted saline lock: 22 gauge in left hand, using aseptic technique. zb 17:22 Patient has correct armband on for positive identification. Bed in low position. Call zb light in reach. Side rails up X 1. 17:50 IV discontinued, intact, bleeding controlled, No redness/swelling at site. Pressure zb dressing applied. 17:50 No provider procedures requiring assistance completed. zb Administered Medications: 15:59 Drug: NS 0.9% 1000 ml Route: IV; Rate: 1000 ml; Site: right hand; zb 16:30 Follow up: Response: No adverse reaction; IV Status: Completed infusion; IV Intake: zb 1000ml 15:59 Drug: Benadryl 25 mg Route: IVP; Site: right hand; zb 17:18 Follow up: Response: No adverse reaction zb 15:59 Drug: Decadron - Dexamethasone 10 mg Route: IVP; Site: right hand; zb 17:18 Follow up: Response: No adverse reaction zb 17:03 Drug: TORadol 30 mg Route: IVP; Site: right hand; zb 17:16 Follow up: Response: No adverse reaction zb 17:03 Drug: Valium 2 mg Route: IVP; Site: right hand; zb 17:15 Follow up: Response: No adverse reaction; Anxiety increased zb Intake: 16:30 IV: 1000ml; Total: 1000ml. zb Outcome: 17:26 Discharge ordered by MD. pm1 17:50 Discharged to home ambulatory. zb 17:50 Condition: stable 17:50 Discharge instructions given to patient, Instructed on discharge instructions, follow up and referral plans. Demonstrated understanding of instructions, follow-up care. 17:50 Patient left the ED. zb Signatures: Destin Davis NP CEPHALOMETRIC TECHNICIAN pm1 Amber Mitchell RN RN tw2 Dionne Nunez ag3 Sharlene Worthington RN RN zb Corrections: (The following items were deleted from the chart) 17:24 17:00 BP 117 / 71; Pulse 77bpm; Resp 100bpm; Pulse Ox 16% RA; zb zb
--- NOTE | 2020-05-17 17:26 | EDPHYS ---
Physician Documentation [facility] Name: Natanael Dyson Age: 25 yrs Sex: Female : 1995 Arrival Date: 05/17/2020 Time: 14:38 Bed 25 Private MD: ED Physician Justin Estrella HPI: 05/17 15:59 This 25 yrs old Female presents to ER via Ambulatory with complaints of pm1 Migraine. 15:59 The patient complains of pain to the forehead. The patient describes the headache as pm1 aching. 15:59 Onset: The symptoms/episode began/occurred 4 day(s) ago. Associated signs and symptoms: pm1 Pertinent positives: Grief from mother's , Pertinent negatives: fever, nausea, vision changes, vomiting, weakness. Severity of symptoms: in the emergency department the pain is unchanged. Headache History: The patient has had previous headaches and this one is similar to previous episodes. The symptoms are alleviated by Darkened room, quiet, the symptoms are aggravated by stress. The patient has been recently seen at the [facility] Emergency Department, last week, for similar complaints labs were performed, CT scan was performed. 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 - Social history:: Smoking status: . ROS: 15:59 Constitutional: Negative for fever, chills, and weight loss, Cardiovascular: Negative pm1 for chest pain, palpitations, and edema, Respiratory: Negative for shortness of breath, cough, wheezing, and pleuritic chest pain, Abdomen/GI: Negative for abdominal pain, nausea, vomiting, diarrhea, and constipation, Back: Negative for injury and pain, MS/Extremity: Negative for injury and deformity, Skin: Negative for injury, rash, and discoloration. 15:59 Neuro: Positive for headache. 15:59 Psych: Positive for Grief. Exam: 15:59 Constitutional: This is a well developed, well nourished patient who is awake, alert, pm1 and in no acute distress. Head/Face: Normocephalic, atraumatic. Eyes: Pupils equal round and reactive to light, extra-ocular motions intact. Lids and lashes normal. Conjunctiva and sclera are non-icteric and not injected. Cornea within normal limits. Periorbital areas with no swelling, redness, or edema. 15:59 Back: No spinal tenderness. No costovertebral tenderness. Full range of motion. Skin: Warm, dry with normal turgor. Normal color with no rashes, no lesions, and no evidence of cellulitis. MS/ Extremity: Pulses equal, no cyanosis. Neurovascular intact. Full, normal range of motion. 15:59 Cardiovascular: Exam negative for acute changes, Rate: normal, Rhythm: regular, Pulses: no pulse deficits are appreciated. 15:59 Respiratory: Exam negative for acute changes, respiratory distress, shortness of breath. 15:59 Abdomen/GI: Exam negative for acute changes, Inspection: abdomen appears normal, Palpation: abdomen is soft and non-tender, in all quadrants. 15:59 Neuro: Orientation: is normal, Mentation: is normal, Cranial nerves: CN II- XII are normal as tested, Motor: is normal, moves all fours. 15:59 Psych: Behavior/mood is Tearful. Affect is animated, Oriented to person, place, time, Patient has no thoughts/intents to harm self or others. Vital Signs: 14:53 BP 129 / 79; Pulse 74; Resp 18; Temp 98.2(TE); Pulse Ox 100% on R/A; Weight 60.33 kg tw2 (R); Height 5 ft. 2 in. (157.48 cm); Pain 9/10; 15:53 BP 121 / 78; Pulse 74; Resp 18; Pulse Ox 100% on R/A; zb 17:00 BP 117 / 71; Pulse 77; Resp 16; Pulse Ox 100% on R/A; zb 14:53 Body Mass Index 24.33 (60.33 kg, 157.48 cm) tw2 MDM: 14:56 Patient medically screened. pm1 17:25 Data reviewed: vital signs. Counseling: I had a detailed discussion with the patient pm1 and/or guardian regarding: the historical points, exam findings, and any diagnostic results supporting the discharge/admit diagnosis, the need for outpatient follow up, to return to the emergency department if symptoms worsen or persist or if there are any questions or concerns that arise at home. 05/17 15:09 Order name: IV Saline Lock; Complete Time: 17:14 pm1 Administered Medications: 15:59 Drug: NS 0.9% 1000 ml Route: IV; Rate: 1000 ml; Site: right hand; zb 16:30 Follow up: Response: No adverse reaction; IV Status: Completed infusion; IV Intake: zb 1000ml 15:59 Drug: Benadryl 25 mg Route: IVP; Site: right hand; zb 17:18 Follow up: Response: No adverse reaction zb 15:59 Drug: Decadron - Dexamethasone 10 mg Route: IVP; Site: right hand; zb 17:18 Follow up: Response: No adverse reaction zb 17:03 Drug: TORadol 30 mg Route: IVP; Site: right hand; zb 17:16 Follow up: Response: No adverse reaction zb 17:03 Drug: Valium 2 mg Route: IVP; Site: right hand; zb 17:15 Follow up: Response: No adverse reaction; Anxiety increased zb Disposition: 05/18 17:22 Co-signature as Attending Physician, Justin Estrella MD I agree with the assessment and rudolph plan of care. Disposition: 05/17/20 17:26 Discharged to Home. Impression: Headache. - Condition is Stable. - Discharge Instructions: General Headache Without Cause. - Medication Reconciliation Form, Thank You Letter, Antibiotic Education, Prescription Opioid Use form. - Follow up: Emergency Department; When: As needed; Reason: Worsening of condition. Follow up: Private Physician; When: 2 - 3 days; Reason: Recheck today's complaints, Continuance of care, Re-evaluation by your physician. - Problem is new. - Symptoms have improved. Signatures: Justin Estrella MD MD cha Marinas, Patrick, CUAU[place] CONDENSER TUBE TENDER pm1 Amber Mitchell RN RN tw2 Sharlene Worthington RN RN zb Corrections: (The following items were deleted from the chart) 05/17 17:50 17:26 05/17/2020 17:26 Discharged to Home. Impression: Headache. Condition is Stable. zb Forms are Medication Reconciliation Form, Thank You Letter, Antibiotic Education, Prescription Opioid Use. Follow up: Emergency Department; When: As needed; Reason: Worsening of condition. Follow up: Private Physician; When: 2 - 3 days; Reason: Recheck today's complaints, Continuance of care, Re-evaluation by your physician. Problem is new. Symptoms have improved. pm1
[2020-05-17 17:58] VITALS: TEMP 98.2; O2SAT 100
[2020-05-17 18:01] VITALS: BP 117/71
[2020-05-27] MEDS ORDERED: METHYLPREDNISOLONE 125 MG INJ ONE (09:11)
[2020-05-27] MEDS ORDERED: PROMETHAZINE INJ 25 MG/ML AMP ONE (09:12)
[2020-05-27] MEDS ORDERED: KETOROLAC 30 MG/ML INJ ONE (09:12)
[2020-05-27] MEDS ORDERED: NA CHLORIDE 0.9% 1,000 ML ONE ×2 (09:12)
[2020-05-27] MEDS ORDERED: FAMOTIDINE 20 MG/2 ML VIAL IV ONE (09:12)
[2020-06-02] MEDS ORDERED: MORPHINE 2 MG/ML SYR ONE ×2 (14:42→16:14)
[2020-06-02] MEDS ORDERED: PROMETHAZINE INJ 25 MG/ML AMP ONE (15:09)
[2020-06-10] MEDS ORDERED: MEPERIDINE HCL 25 MG/ML SYR ONE ×2 (10:11→12:00)
[2020-06-10] MEDS ORDERED: KETOROLAC 30 MG/ML INJ ONE (10:11)
[2020-06-10] MEDS ORDERED: ONDANSETRON 4 MG/2 ML VIAL ONE (10:11)
[2020-06-10] MEDS ORDERED: NA CHLORIDE 0.9% 1,000 ML ONE (10:11)
[2020-06-10] MEDS ORDERED: dexAMETHasone 10 MG/ML VIAL ONE (10:11)
[2020-06-10] MEDS ORDERED: DIPHENHYDRAMINE 50 MG/ML VIAL ONE (10:11)
[2020-06-10] MEDS ORDERED: CEFTRIAXONE/SWI 1gm 1 GM/10 ML SYR ONE (12:00)
== END 2020-05-17 17:50 | disposition home or self-care (01) ==
LOC: ER 14:35
DX: R51.9 Headache, unspecified (principal); Z88.8 Allergy status to other drugs, medicaments and biological substances; Z87.442 Personal history of urinary calculi
CPT/HCPCS: 96361; 96374; 96375; 99283; J1100; J1200; J3360; J7030

== ENCOUNTER 2020-05-27 08:11 | Emergency (ER) | payer MEDICAID, SELFPAY ==
--- OUTSIDE RECORDS SUMMARY | 2020-05-27 08:12 | XMS REPORT | Continuity of Care Document ---
:1995 Author Organization [facility] t Address [address] [place] [address] Care Team Providers Name Role Phone Heather HENDRICKS Attending Clinician Miguel Anderson Attending Clinician Clinic, Neurology Continuity Attending Clinician Brandi Hitchcock MD Attending Clinician Joey Armstrong MD Attending Clinician Problems This patient has no known problems. Allergies, Adverse Reactions, Alerts This patient has no known allergies or adverse reactions. Medications This patient has no known medications. Procedures This patient has no known procedures. Encounters Start End Encounter Admission Attending Care Care Encounter Source Date/Time Date/Time Type Type Clinicians Facility Department ID 2020-05-24 2020-05-24 [facility] Gayathri Romero [facility] [id number] 08:50:11 23:59:00 Encounter Health [id number] [place] [id number] [place] [id number] [place] [id number] ([facility]) 2020-05-23 2020-05-23 [facility] [id number] 11:25:00 13:24:00 Johnathan Richards [id number] [place] [id number] [place] [id number] 2020-05-20 2020-05-20 [facility] [id number] 00:00:00 00:00:00 (Out) Neurology [facility] [id number] Continuity CLINICS [id number] 2020-05-19 2020-05-19 Telemedic Coretta [address]840.11 4 [id number] 07:46:35 08:16:35 ne Visit [facility] [id number] CLINICS [id number] 2020-05-17 2020-05-17 Office Patti [id number] 12:37:40 13:59:34 Visit [place] Joey [place] [id number] [place] [id number] [place] [phone] pending sale to [facility] 092 [facility] 2020-04-18 2020-04-18 [facility] C[place]ta [place] [id number] 07:51:17 08:21:17 ne Visit [facility] [id number] CLINICS [id number] Results This patient has no known results.
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
--- OUTSIDE RECORDS SUMMARY | 2020-05-27 08:25 | XMS REPORT | Summary of Care ---
:1995 Author Organization [address] [address] Care Team Providers Name Role Phone Jessica Baker Insurance Hmo Kassandra Dennis MD Primary Care Provider Reason for Visit Reason Comments No Show (DNKA) Encounter Details Date Type Department Care Team Description 04/18/2020 Telemedicine Visit [facility] Lopez Hitchcock M D Pain of upper Nephrology- [address] [place] [address] abdomen (Prim robert [facility] Dx) [facility] [address] [place] [address] Drive, [address] [place] [address] Allergies Active Allergy Reactions Severity Noted Date Comments Latex Rash 04/13/2020 Metoclopramide Hcl Anxiety 07/12/2019 Patient s ays she gets figity, angry and mean documented as of this encounter (statuses as of 05/22/2020) Medications Medication Sig Dispensed Refills Start Date End Date Status ALBUTEROL 90 INHALE 2 PUFFS 7 Each 3 05/26/2019 D iscontinued mcg/actuation BY MOUTH EVERY 0 inhalerIndicatio 6 HOURS ns: Asthma NEEDED FOR affecting WHEEZING FOR in SHORTNESS OF second trimester BREATH potassium Take 1 tablet 180 tablet 1 01/14/2020 Disc ontinued citrate 10 mEq by mouth 3 0 (1,080 mg) SR (three) times tabletIndication daily with s: Pain meals. FLUoxetine 20 mg Take 1 capsule 30 capsule 3 03/17/2020 Discontinued capsuleIndicatio by mouth 0 ns: Depression, daily. unspecified depression type, depression metoprolol Take 0.5 15 tablet 0 04/14/2020 Disconti nued succinate XL 25 tablets by 0 (Wr itten Order) mg 24 hr mouth daily tabletIndication for 30 days. s: Tachycardia aspirin (ADULT Take 1 tablet 7 tablet 0 04/15/2020 LOW DOSE by mouth daily 0 ASPIRIN) 81 mg for 7 days. EC Take with tabletIndication food. s: Phlebitis, superficial cephALEXin 250 Take 1 capsule 21 capsule 0 04/15/2020 04/22/20 2 mg by mouth every 0 capsuleIndicatio 8 (eight) ns: Phlebitis, hours for 7 superficial days. documented as of this encounter (statuses as of 05/22/2020) Active Problems Problem Noted Date Visual changes 05/07/2020 Headache 04/30/2020 Sinus tachycardia 04/13/2020 Abdominal pain 04/13/2020 Anxiety disorder, unspecified type 01/05/2020 Insomnia, unspecified type 01/05/2020 Other depression 08/13/2019 Cervical Papanicolaou smear negative within last 12 mo [facility] 06/19/2019 Overview: 12/2018 NIL pap , see scanned records documented as of this encounter (statuses as of 05/22/2020) Resolved Problems Problem Noted Date Resolved Date [...] as of this encounter (statuses as of 05/22/2020) Immunizations Name Administration Dates Next Due Influenza [...] with No / Unsure 05/17/2020 12:37 PM FASHION STYLIST someone who was confirmed or 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 documented as of this encounter Last Filed Vital Signs Not on filedocumented in this encounter Progress Notes Lopez Hitchcock MD - 04/18/2020 10:00 AM CSTPatient was a no show. documented in this encounter Plan of Treatment Date Type Specialty Care Team Description 05/24/2020 Appointment Radiology Heather Gayathri, DISPLAY DIRECTOR [address] [place] [address] [phone] 06/02/2020 Office Visit Cardiology Rad Potts MD [address] [facility] [address] [place], [place] [address] 06/02/2020 Appointment Radiology Darrion Armstrong MD [address] [place] [phone] 08/11/2020 Office Visit Obstetrics & Gynecology Young Quiñonez MD [address] [facility] [address] [place], [place] [address] Health Maintenance Due Date Last Done Comments HPV VACCINES (1 - 2-dose series) 2006 PAP SMEAR 02/19/2016 Depression Screening 09/01/2020 09/02/2019, 09/02/2019 DTaP,Tdap,and Td Vaccines (2 - Td) 05/21/2029 05/21/2019 INFLUENZA VACCINE Completed 05/19/2020, 02/06/2019 PNEUMOCOCCAL 0-64 YEARS COMBINED SERIES Discontinued documented as of this encounter Results Not on filedocumented in this encounter Visit Diagnoses Diagnosis Pain of upper abdomen - Primary Abdominal pain, other specified site documented in this encounter Insurance Payer Benefit Plan / Subscriber ID Effective Phone Address T ype Group Dates SAMMY CHRISTIANSON [id number] 2019-Pres [address] BOX Medic aid HEALTHCARE [place]ARE [place] [id number] MANAGED MEDICAID [place], [place] documented as of this encounter
--- OUTSIDE RECORDS SUMMARY | 2020-05-27 08:25 | XMS REPORT | Summary of Care ---
:1995 Author Organization [facility] Address [address] [place] [address] Care Team Providers Name Role Phone Jessica Baker Insurance Hmo Kassandra Dennis MD Primary Care Provider Encounter Details Date Type Department Care Team Description 05/20/2020 Letter (Out) [facility], [facility] Neurol [facility] [address] [facility], 6th [place] [address] Allergies Active Allergy Reactions Severity Noted Date Comments Latex Rash 04/13/2020 Metoclopramide Hcl Anxiety 07/12/2019 Patient s ays she gets figity, angry and mean documented as of this encounter (statuses as of 05/20/2020) Medications Medication Sig Dispensed Refills Start Date [...] tablet by mouth 2 (two) times daily. traMADoL 50 mg Take 1 tablet 7 tablet 0 05/19/2020 05/26/2020 Active tabletIndications: by mouth every acute pain 6 (six) hours as needed for Pain (scale 7-10) for up to 7 days. Indications: acute pain documented as of this encounter (statuses as of 05/20/2020) Active Problems Problem Noted Date Visual changes 05/07/2020 Headache 04/30/2020 Sinus tachycardia 04/13/2020 Abdominal pain 04/13/2020 Anxiety disorder, unspecified type 01/05/2020 Insomnia, unspecified type 01/05/2020 Other depression 08/13/2019 Cervical Papanicolaou smear negative within last 12 mo [facility] 06/19/2019 Overview: 12/2018 NIL pap , see scanned records documented as of this encounter (statuses as of 05/20/2020) Resolved Problems Problem Noted Date Resolved Date [...] as of this encounter (statuses as of 05/20/2020) Immunizations Name Administration Dates Next Due Influenza [...] with No / Unsure 05/17/2020 12:37 PM WOOD LAST MAKER someone who was confirmed or 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 documented as of this encounter Last Filed Vital Signs Not on filedocumented in this encounter Plan of Treatment Date Type Specialty Care Team Description 05/24/2020 Appointment Radiology Gayathri Romero FNP [address] [place], [place] [phone] 06/02/2020 Office Visit Cardiology Rad Potts MD [address] [place], [place] [address] 06/02/2020 Appointment Radiology Darrion Armstrong MD [address] [place] [address] [address] [place], [place] [phone] 08/11/2020 Office Visit Obstetrics & Gynecology Young Quiñonez MD [address] [place] [address] [address] [place], [place] [address] Health Maintenance Due Date [...] / Subscriber ID Effective Phone Address T [facility] Group Dates SAMMY CHRISTIANSON [id number] 2019-Pres P O BOX Medic aid [place] [id number] MANAGED MEDICAID [place], [place] documented as of this encounter
--- OUTSIDE RECORDS SUMMARY | 2020-05-27 08:25 | XMS REPORT | Summary of Care ---
:1995 Author Organization [facility] Address [address] [place] [address] Care Team Providers Name Role Phone Jessica Baker Insurance Hmo Kassandra Dennis MD Primary Care Provider Reason for Referral MRI/CAT Scan (Routine) Status Reason Specialty Diagnoses / Referred By Referred To Procedures Contact Contact New Request Diagnostic Diagnoses Other headache syndrome Family history of cerebral aneurysm Darrion Armstrong Radiology Procedures MR ANGIOGRAM HEAD WO CONTRAST MD Joey [address] [place] [address]. [place] [address] Reason for Visit Reason Comments New Patient Severe Migrains, Ref: by Dr. Dennis Encounter Details Date Type Department Care Team Description 05/17/2020 Office Visit [facility] Darrion Armstrong Other headac he syndrome (Primary Dx); Neurology-Maurice Cook MD Family history of cerebral aneurysm [address] [place] [phone] Allergies Active Allergy Reactions Severity Noted Date [...] with No / Unsure 05/17/2020 12:37 PM MANIPULATIVE THERAPY SPECIALIST someone who was confirmed or 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 documented as of this encounter Last Filed Vital Signs Vital Sign Reading Time Taken Comments Blood Pressure 116/79 05/17/2020 1:11 PM MANIPULATIVE THERAPY SPECIALIST Pulse 90 05/17/2020 1:11 PM MANIPULATIVE THERAPY SPECIALIST Temperature - - Respiratory Rate - - Oxygen Saturation 99% 05/17/2020 1:11 PM MANIPULATIVE THERAPY SPECIALIST Inhaled Oxygen Concentration - - Weight 60.3 kg (133 lb) 05/17/2020 1:11 PM MANIPULATIVE THERAPY SPECIALIST Height 157.5 cm (5' 2") 05/17/2020 1:11 PM MANIPULATIVE THERAPY SPECIALIST Body Mass Index 24.33 05/17/2020 1:11 PM MANIPULATIVE THERAPY SPECIALIST documented in this encounter Progress Notes Darrion [...] risk: Prescription drug management. Darrion Armstrong MD Dolphin Trainer Neurology HISTORY OF PRESENT ILLNESS: Natanael Dyson [...] of acute intracranial process. RL: 2831 AFC: [id number] Ct Angiogram Neck Result Date: 04/30/2020 Patent dural venous sinuses. No acute vascular findings within the neck. Xr Cervical Spine 3 Vw Result Date: 05/08/2020 No evidence of displaced fracture or malalignment. RL: 2831 AFC: [id number] Mr Brain W Wo Contrast Result Date: [...] times daily., Disp: 60 tablet, Rfl: 1 Ycwjogfrhq-Gpielzntncuco-Ygiy (FIORICET) 50-300-40 mg per capsule, Take 1 [...] N/A 07/21/2019 Surgeon: Shelia Quiñonez MD; Location: [facility] OR Location TUBAL LIGATION N/A 07/21/2019 Surgeon: Shelia Quiñonez MD; Location: [facility] OR Location Social [...] file Gets together: Not on file Attends scientologist service: Not on file Active member of [...] A&Ox4: person, place, time and situation. 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 -MRA Joss Alexandre, [id number] signed by Darrion Armstrong MD at 05/19/2020 2:43 PM CSTdocumented in this encounter Plan of Treatment Date Type Specialty Care Team Description 05/19/2020 Telemedicine Visit Nephrology Lopez Hitchcock M D [address] [address] 05/24/2020 Appointment Radiology Gayathri Romero, FIREBRICK LAYER [address] [phone] 06/02/2020 Office Visit Cardiology Rad Potts MD [address] [facility] [address] [place] [address] 06/02/2020 Appointment Radiology Darrion Armstrong MD 301 [facility] [place] [address] 08/11/2020 Office Visit Obstetrics & Quiñonez, Munir Johnson Gynecology [address] [facility] [address] [place], [place] [address] Name Type Priority Associated [...] / Subscriber ID Effective Phone Address T [facility] Group Dates SAMMY CHRISTIANSON [id number] 2019-Pres P O BOX Medic aid HEALTHCARE [place]CARE [place] [id number] MANAGED MEDICAID [place], [place] documented as of this encounter
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
--- OUTSIDE RECORDS SUMMARY | 2020-05-27 08:26 | XMS REPORT | Summary of Care ---
:1995 Author Organization [facility] Address [address] [place] [address] Care Team Providers Name Role Phone Jessica Baker Insurance H[employer] Kassandra Denins MD Primary Care Provider Reason for Referral MRI/CAT Scan (STAT) Status Reason Specialty Diagnoses / Referred By Referred To Procedures Contact Contact New Request Diagnostic Diagnoses Atypical migraine [place], Radiology Procedures CT HEAD WO CONTRAST Humao F, COUNTY DIRECTOR [address] [facility] [address] [place] [phone] Reason for Visit Reason Comments Other covid swab Auth/Cert Status Reason Specialty Diagnoses / Referred By Referred To Procedures Contact Contact Emergency Medicine Ad[facility] Em ergency Dept [address] [place] [address] Fax: Encounter Details Date Type Department Care Team Description 05/23/2020 Emergency ADC-Emergency Shaquille Caldwell Atypical migraine Department F, COUNTY DIRECTOR (Primary Dx) [address] [place] [address] [place] [address] [place], [place] [phone] Allergies Active Allergy Reactions Severity Noted Date Comments Latex Rash 04/13/2020 Metoclopramide Hcl Anxiety 07/12/2019 Patient s ays she gets figity, angry and mean documented as of this encounter (statuses as of 05/23/2020) Medications Medication Sig Dispensed Refills Start Date [...] as of this encounter (statuses as of 05/23/2020) Active Problems Problem Noted Date Visual changes 05/07/2020 Headache 04/30/2020 Sinus tachycardia 04/13/2020 Abdominal pain 04/13/2020 Anxiety disorder, unspecified type 01/05/2020 Insomnia, unspecified type 01/05/2020 Other depression 08/13/2019 Cervical Papanicolaou smear negative within last 12 mo [facility] 06/19/2019 Overview: 12/2018 NIL pap , see scanned records documented as of this encounter (statuses as of 05/23/2020) Resolved Problems Problem Noted Date Resolved Date [...] as of this encounter (statuses as of 05/23/2020) Immunizations Name Administration Dates Next Due Influenza [...] been in contact with No / Unsure 05/23/2020 11:23 AM [facility] [employer] [facility] someone who was confirmed or 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 documented as of this encounter Last Filed Vital Signs Vital Sign Reading Time Taken Comments Blood Pressure 137/99 05/23/2020 11:24 AM [facility] [employer] [facility] Pulse 100 05/23/2020 11:24 AM [facility] [employer] Temperature 36.4 C (97.6 F) 05/23/2020 11:24 AM [facility] [employer] [facility] Respiratory Rate 14 05/23/2020 11:24 AM [facility] [employer] Oxygen Saturation 100% 05/23/2020 11:24 AM [facility] [employer] Inhaled Oxygen Concentration - - Weight 60.3 kg (133 lb) 05/23/2020 11:24 AM [facility] [employer] [facility] Height 157.5 cm (5' 2") 05/23/2020 11:24 AM [facility] [employer] [facility] Body Mass Index 24.33 05/23/2020 11:24 AM [facility] [employer] documented in this encounter ED Notes Nury Melissa RN - 05/23/2020 11:23 AM CSTHeadache x4 days. States she has migraines but has taken her prescribed medications from neurologistand hasn't helped. When she contacted her neurologist she was advised to come to ED for covid swab. [facility] [employer] [facility] documented in this encounter Miscellaneous Notes ED Nurse Note - Kellie Koroma RN - 05/23/2020 1:20 PM CSTCalled to room & patient asking to take out her IV because she needs to go home. RN explained to patient that since provider is not ready to discharge her yet she would be leaving AMA. Patient stated understanding. PIV removed, AMA form signed. Patient ambulated out of ED in no acute distress. ED provider and drop board man notified. documented in this encounter Plan of Treatment Date Type Specialty Care Team Description 05/24/2020 Appointment Radiology Gayathri Romero, ELADIO [address] [place] [address] [phone] 06/02/2020 Office Visit Cardiology Rad Potts MD [address] [place], [place] [phone] 06/02/2020 Appointment Radiology Darrion Armstrong MD [address] [place] [address] [address] [place], [place] [phone] 08/11/2020 Office Visit Obstetrics & Gynecology Young Quiñonez MD [address] [place] [id number] 15 Name Type Priority Associated Diagnoses Date/Ti me LAB ONLY COVID LAB Routine Atypical migraine 05/23/19 21 12:47 PM INTERPRETATION [facility] [employer] Name Type Priority Associated Diagnoses Order S chedule CT HEAD WO CONTRAST IMAGING STAT Atypical migraine ONC E for 1 Occurrences starting 2020 until 1 LAB ONLY COVID LAB Routine Atypical migraine ONCE for 1 Occurrences INTERPRETATION starting 05/13 until 1 Health Maintenance Due Date Last Done Comments HPV VACCINES (1 - 2-dose series) 2006 PAP SMEAR 02/19/2016 Depression Screening 09/01/2020 09/02/2019, 09/02/2019 DTaP,Tdap,and Td Vaccines (2 - Td) 05/21/2029 05/21/2019 INFLUENZA VACCINE Completed 05/19/2020, 02/06/2019 PNEUMOCOCCAL 0-64 YEARS COMBINED SERIES Discontinued documented as of this encounter Procedures Procedure Name Priority Date/Time Associated Comments Diagnosis CBC WITH DIFF STAT 05/23/2020 12:59 PM Atypical migraine Re sults for this [facility] [employer] procedure are i n the results section. COMP. METABOLIC STAT 05/23/2020 12:59 PM Atypical migraine Results for this PANEL (07207) [facility] [employer] [facility] procedure are in the results section. COVID-19 (ID NOW STAT 05/23/2020 12:47 PM Atypical migraine Results for this RAPID TESTING) [facility] [employer] [facility] procedure are in the results section. URINALYSIS STAT 05/23/2020 12:44 PM Atypical migraine Res ults for this [facility] [employer] procedure are i n the results section. POCT TEST [place] 05/23/2020 12:43 PM Atypical migra ine Results for this [facility] [employer] procedure are i n the results section. CONSENT/REFUSAL FOR Routine 05/23/2020 11:13 AM DIAGNOSIS AND [facility] [employer] [facility] TREATMENT documented in this encounter Results COMP. METABOLIC PANEL (55251) (05/23/2020 12:59 PM [facility] [employer] [facility]) Pathologist Sig nature NA 141 135 - 145 [facility] mmol/L [facility] K 3.6 3.5 - 5.0 [facility] mmol/L [facility] CL 108 98 - 108 mmol/L [facility] CO2 TOTAL 21 (L) 23 - 31 mmol/L [facility] AGAP 12 2 - 16 [facility] BUN 14 7 - 23 mg/dL [facility] GLUCOSE 81 70 - 110 mg/dL [facility] CREATININE 0.82 0.50 - 1.04 [facility] mg/dL [facility] TOTAL BILI 0.6 0.1 - 1.1 mg/dL [facility] CALCIUM 9.1 8.6 - 10.6 [facility] mg/dL [facility] T PROTEIN 8.2 6.3 - 8.2 g/dL [facility] ALBUMIN 4.7 3.5 - 5.0 g/dL [facility] ALK PHOS 83 34 - 122 U/L [facility] ALTv 21 5 - 35 U/L [facility] AST(SGOT) 21 13 - 40 U/L [facility] eGFR Calculation 84.9 mL/min/1.73m2 [facility] (Non-) [facility] Y eGFR Calculation 102.9 mL/min/1.73m2 [facility] () [facility] Specimen Blood - VENOUS Narrative Performed At Association of Glomerular Filtration Rate (GFR) [facility] and Staging of Kidney Disease* [...] tests). Performing Organization Address City/State/Zipcode Phone Number [facility] CLIA: [id number] [place] [address] CBC WITH DIFF (05/23/2020 12:59 PM [facility] [employer]) Pathologist Sig nature WBC 8.00 4.30 - 11.10 [facility] 10*3/L [facility] RBC 4.72 3.93 - 5.25 [facility] 10*6/L [facility] HGB 13.5 11.6 - 15.0 g/dL [facility] HCT 41.4 35.7 - 45.2 % [facility] MCV 87.7 80.6 - 95.5 fL [facility] MCH 28.6 25.9 - 32.8 pg [facility] MCHC 32.6 31.6 - 35.1 g/dL [facility] RDW-SD 46.6 39.0 - 49.9 fL [facility] RDW-CV 14.4 12.0 - 15.5 % [facility] PLT 405 (H) 166 - 358 [facility] 10*3/L [facility] MPV 9.7 9.5 - 12.9 fL [facility] NRBC/100 WBC 0.0 0.0 - 10.0 /100 [facility] WBCs [facility] NRBC x10^3 <0.01 10*3/L [facility] GRAN MAT (NEUT) % 58.8 % [facility] IMM GRAN % 0.40 % [facility] LYMPH % 31.6 % [facility] MONO % 6.3 % [facility] EOS % 2.4 % [facility] BASO % 0.5 % [facility] GRAN MAT x10^3(ANC) 4.71 1.88 - 7.09 [facility] 10*3/uL HOSPITAL LABORATORY IMM GRAN x10^3 0.03 0.00 - 0.06 [facility] 10*3/uL HOSPITAL [facility]ORY LYMPH x10^3 2.53 1.32 - 3.29 [facility] 10*3/uL HOSPITAL LAB[facility]ORY MONO x10^3 0.50 0.33 - 0.92 [facility] 10*3/uL HOSPITAL LAB[facility]ORY EOS x10^3 0.19 0.03 - 0.39 [facility] 10*3/uL HOSPITAL [facility] BASO x10^3 0.04 0.01 - 0.07 [facility] 10*3/uL HOSPITAL LABORATORY Specimen Blood - VENOUS Performing Organization Address [facility] Phone Number [facility] CLIA: [id number] [place] [address] [place] [address] COVID-19 (ID NOW RAPID TESTING) (05/23/2020 12:47 PM [facility] [employer] [facility]) SARS-CoV-2 Rapid ID Positive (A) Not Detected [facility] Specimen Swab - NASOPHARYNGEAL SWAB Narrative Performed At ID NOW COVID-19 Assay is an isothermal nucleic [facility] acid amplification test intended for the qualitative detection of nucleic acid from SARS-CoV-2 viral RNA in nasopharyngeal ([employer] OFFICE [employer]ENT) specimens. It is used under Emergency Use [...] testing if clinically indicated. Performing Organization Address City/[facility]/Zipcode Phone Number [facility] CLIA: [id number] [place] [address] LABORATORY [facility] [address] URINALYSIS (05/23/2020 12:44 PM [facility] [employer] [facility]) Pathologist Sig nature APPEARANCE Hazy (A) Clear [facility] COLOR Yellow Yellow [facility] PH 6.0 4.8 - 8.0 [facility] SP GRAVITY 1.016 1.003 - 1.030 [facility] GLU U QUAL Normal Normal [facility] BLOOD 2+ (A) Negative [facility] KETONES Negative Negative [facility] PROTEIN Negative Negative [facility] UROBILIN Normal Normal [facility] BILIRUBIN Negative Negative [facility] NITRITE Negative Negative [facility] LEUK ANJELICA Negative Negative [facility] RBC/HPF 5 (H) 0 - 3 HPF [facility] WBC/HPF 2 0 - 5 HPF [facility] BACTERIA Few (A) Negative [facility] SQ EPITH 13 HPF [facility] Specimen Urine - URINE, CLEAN CATCH Performing Organization Address City/State/Zipcode Phone Number [facility] CLIA: [id number] [place] [address] POCT TEST (05/23/2020 12:43 PM [facility] [employer]) Pathologist Sig nature POCT PREG negative On board controls acceptable present with C Line POCT PREG LOT # [id number] POCT PREG TEST DATE 01/10/2022 Specimen Urine - URINE, CLEAN CATCH documented in this encounter Visit Diagnoses Diagnosis Atypical migraine - Primary Other forms of migraine, without mention of intractable migraine without mention of status migrainosus documented in this encounter Administered Medications Medication Order MAR Action Action Date Dose Rate Site acetaminophen (TYLENOL) tablet Given 05/23/2020 1:00 PM [facility] [employer] [facility] 1,0 00 mg 1,000 mg 1,000 mg, Oral, ONCE, 1 dose, Sat05/23/20 at 1330, Routine ketorolac (TORADOL) injection 30 mg Given 05/23/2020 1:01 PM [facility] [employer] 30 mg 30 mg, Slow IV Push, ONCE, 1 dose, Sat05/23/20 at 1330, Routine, 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 Restricted medication: SHAQUILLE CALDWELL NaCl 0.9% (NS) bolus infusion New Bag 05/23/2020 1:00 PM [facility] [employer] [facility] 1,000 mL 999 mL/hr 1,000 mL at 999 mL/hr, 1,000 mL, IV Piggyback, ONCE, 1 dose, 05/23/20 at 1315, STAT ondansetron (ZOFRAN (PF)) injection 4 mg Given 05/23/2020 1:02 PM [facility] [employer] [facility] 4 mg 4 mg, Slow IV Push, ONCE, 1 dose, 05/23/20 at 1330, [place] proCHLORperazine (COMPAZINE) 10 mg in NaCl Given 05/23/2020 1:0 3 PM [facility] [employer] 10 mg 0.9% (NS) piggyback 10 mg, IV Piggyback, ONCE, 1 dose, 05/23/20 at 1315, 50 mL documented in this encounter Additional Health Concerns Infection Onset Date Last Indicated Resolved Time COVID-19 Rule Out 05/23/2020 05/23/2020 05/23/2020 1: 17 PM [facility] [employer] [facility] COVID-19 Confirmed 05/23/2020 05/23/2020 documented as of this encounter Insurance Payer Benefit Plan / Subscriber ID Effective Phone Address T ype Group Dates SAMMY CHRISTIANSON [id number] 2019-Pres [address] Medic aid [employer] - [place]ALTHCARE ent [id number] MANAGED MEDICAID [place], [place] documented as of this encounter
[2020-05-27 09:28] LABS: Absolute Lymphocytes (CBC) 1.9 K/uL (0.7-4.9); Basophils % 0.8 % (0-1.3); Hematocrit 39.9 % (36.0-45.0); MPV 8.4 fL (7.6-11.3); RBC Red Blood Cell Count 4.59 M/uL (3.86-4.86)
[2020-05-27] MEDS ORDERED: MORPHINE 2 MG/ML SYR ONE (09:34)
[2020-05-27 09:37] LABS: Urine Blood 1+ (NEG); Urine Glucose NEGATIVE (NEG); Urine Protein NEGATIVE (NEG); Urine pH 6.5 (5.0-7.0)
[2020-05-27 09:39] LABS: Potassium 3.7 mmol/L (3.5-5.1)
--- NOTE | 2020-05-27 11:25 | RAD REPORT ---
EXAM DESCRIPTION: Fadia Single View05/27/2020 11:16 am CLINICAL HISTORY: Chest pain COMPARISON: none FINDINGS: Lungs appear grossly clear. The heart is normal size
--- NOTE | 2020-05-27 11:27 | EDPHYS ---
Physician Documentation [facility] Name: Natanael Dyson Age: 25 yrs Sex: Female : 1995 Arrival Date: 05/27/2020 Time: 08:14 Bed 5 Private MD: ED Physician Miquel Rios HPI: 05/27 11:37 This 25 yrs old Female presents to ER via Ambulatory with complaints of kdr Cough, Covid +, Chest Pain. 11:37 The patient or guardian reports cough, Headache. Onset: The symptoms/episode kdr began/occurred gradually, 5 day(s) ago. Severity of symptoms: At their worst the symptoms were severe, incapacitating, just prior to arrival, in the emergency department the symptoms are unchanged. Modifying factors: The symptoms are alleviated by nothing, the symptoms are aggravated by exertion. Associated signs and symptoms: Pertinent positives: chest pain, diarrhea, nausea, vomiting, Pertinent negatives: ear ache, fever, rhinorrhea, sore throat. The patient has not experienced similar symptoms in the past. The patient has been recently seen by a physician: the patient's primary care provider. noted elsewhere, the patient is COVID positive since Saturday and now continues to have a TORRES that is unrelenting. She appears in mild distress but is o/q stable. Historical: - Allergies: 08:27 Reglan; hb - Home Meds: 08:27 Metoprolol Tartrate Oral [Active]; Topamax Oral [Active]; hb - PMHx: 08:27 Asthma; Kidney stones; Tachycardia; Migraines; hb - PSHx: 08:27 None; hb - Immunization history:: Adult Immunizations up to date. - Social history:: Smoking status: Patient denies any tobacco usage or history of. ROS: 11:37 Constitutional: Negative for fever, chills, and weight loss, Eyes: Negative for injury, kdr pain, redness, and discharge, ENT: Negative for injury, pain, and discharge, Neck: Negative for injury, pain, and swelling, Abdomen/GI: Negative for abdominal pain, nausea, vomiting, diarrhea, and constipation, Back: Negative for injury and pain, : Negative for injury, bleeding, discharge, and swelling, MS/Extremity: Negative for injury and deformity, Skin: Negative for injury, rash, and discoloration, Psych: Negative for depression, anxiety, suicide ideation, homicidal ideation, and hallucinations, Allergy/Immunology: Negative for hives, rash, and allergies, Endocrine: Negative for neck swelling, polydipsia, polyuria, polyphagia, and marked weight changes. 11:37 Cardiovascular: Positive for chest pain, Negative for edema, orthopnea, palpitations, paroxysmal nocturnal dyspnea, acute changes. 11:37 Neuro: Positive for headache, weakness, Negative for altered mental status, dizziness, numbness, seizure activity, speech changes, syncope, near syncope, tremor, visual changes. Exam: 11:37 Constitutional: This is a well developed, well nourished patient who is awake, alert, kdr and in no acute distress. Neck: Trachea midline, no thyromegaly or masses palpated, and no cervical lymphadenopathy. Supple, full range of motion without nuchal rigidity, or vertebral point tenderness. No Meningismus. Neuro: Awake and alert, GCS 15, oriented to person, place, time, and situation. Cranial nerves II-XII grossly intact. Motor strength 5/5 in all extremities. Sensory grossly intact. Cerebellar exam normal. Normal gait. Vital Signs: 08:22 BP 128 / 68; Pulse 92; Resp 18; Temp 99.1(TE); Pulse Ox 100% on R/A; Pain 10/10; hb 08:52 Weight 60.33 kg (R); hb 09:31 BP 107 / 68; Pulse 80; Resp 17; Temp 98.5(O); Pulse Ox 100% on R/A; mh5 10:57 BP 114 / 60; Pulse 83; Resp 16; Temp 98.0; Pulse Ox 100% on R/A; mh5 MDM: 11:26 Patient medically screened. kdr 11:37 Data reviewed: vital signs, nurses notes, lab test result(s), radiologic studies. kdr Counseling: I had a detailed discussion with the patient and/or guardian regarding: the historical points, exam findings, and any diagnostic results supporting the discharge/admit diagnosis, lab results, radiology results, the need for outpatient follow up. Special discussion: Based on the patient's history, exam, and Dx evaluation, there is no indication for emergent intervention or inpatient Tx. It is understood by the patient/guardian that if the Sx's persist or worsen they need to return immediately for re-evaluation. I discussed with the patient/guardian in detail that at this point there is no indication for admission to the hospital. It is understood, however, that if the symptoms persist or worsen the patient needs to return immediately for re-evaluation. 05/27 08:45 Order name: CBC with Diff; Complete Time: 10:08 kdr 05/27 08:45 Order name: Chem 7; Complete Time: 10: kdr 05/27 09:12 Order name: Urine Dipstick--Ancillary (enter results); Complete Time: 10: eb 05/27 09:12 Order name: Urine --Ancillary (enter results); Complete Time: 10: eb 05/27 10:08 Order name: CXR XRAY kdr 05/27 08:45 Order name: Urine Dipstick-Ancillary (obtain specimen); Complete Time: 09:24 kdr 05/27 08:45 Order name: Urine Test (obtain specimen); Complete Time: 09:24 kdr Administered Medications: 09:12 Drug: SOLU-Medrol 125 mg Route: IVP; Site: right antecubital; aa5 09:12 Drug: Pepcid 20 mg Route: IVP; Site: right antecubital; aa5 09:12 Drug: NS 0.9% (30 ml/kg) 30 ml/kg Route: IV; Rate: bolus; Site: right antecubital; aa5 09:13 Drug: Phenergan 12.5 mg Route: IVP; Site: right antecubital; aa5 09:25 Not Given (Patient Refused): TORadol - Ketorolac 15 mg IVP once aa5 09:25 Drug: morphine 2 mg Route: IVP; Site: right antecubital; aa5 Disposition: 05/27/20 11:26 Discharged to Home. Impression: SARS-associated coronavirus as the cause of diseases classified elsewhere, Headache. - Condition is Stable. - Discharge Instructions: COVID-19. - Prescriptions for Pulmicort Flexhaler 180 mcg/actuation Inhalation aerosol powdr breath activated - inhale 1 puff by INHALATION route 2 times per day; 1 Cartridge. - Medication Reconciliation Form, Thank You Letter form. - Follow up: Private Physician; When: 2 - 3 days; Reason: If symptoms return, Further diagnostic work-up, Recheck today's complaints, Continuance of care, Re-evaluation by your physician. - Problem is an ongoing problem. - Symptoms have improved. Signatures: Dispatcher [employer] EDMS Miquel Rios MD MD [facility] Jaycee Brewer RN RN aa5 Judi Rich RN RN Corrections: (The following items were deleted from the chart) 11:44 11:26 05/27/2020 11:26 Discharged to Home. Impression: SARS-associated coronavirus as aa5 the cause of diseases classified elsewhere; Headache. Condition is Stable. Forms are Medication Reconciliation Form, Thank You Letter, Antibiotic Education, Prescription Opioid Use. Follow up: Private Physician; When: 2 - 3 days; Reason: If symptoms return, Further diagnostic work-up, Recheck today's complaints, Continuance of care, Re-evaluation by your physician. Problem is an ongoing problem. Symptoms have improved. kdr
--- NOTE | 2020-05-27 11:27 | ER ---
Nurse's Notes [facility] Name: Natanael Dyson Age: 25 yrs Sex: Female : 1995 Arrival Date: 05/27/2020 Time: 08:14 Bed 5 Private MD: Diagnosis: SARS-associated coronavirus as the cause of diseases classified elsewhere;Headache Presentation: 05/27 08:22 Chief complaint: N/D, cough, lack of taste and smell, body aches, headache, sore hb throat, shortness of breath, and chest tightness x 5 days, feels like she is getting worse. Tested COVID + on Saturday at [facility]. Coronavirus screen: Client presents with at least one sign or symptom that may indicate coronavirus-19. Client reports previous positive COVID test result. Date of collection: May 23, 2020. Ebola Screen: No symptoms or risks identified at this time. Initial Sepsis Screen: Does the patient meet any 2 criteria? No. Patient's initial sepsis screen is negative. Does the patient have a suspected source of infection? No. Patient's initial sepsis screen is negative. Risk Assessment: Do you want to hurt yourself or someone else? Patient reports no desire to harm self or others. Onset of symptoms was May 22, 2020. 08:22 Method Of Arrival: Ambulatory hb 08:22 Acuity: THIERNO 3 hb Historical: - Allergies: 08:27 Reglan; hb - Home Meds: 08:27 Metoprolol Tartrate Oral [Active]; Topamax Oral [Active]; hb - PMHx: 08:27 Asthma; Kidney stones; Tachycardia; Migraines; hb - PSHx: 08:27 None; hb - Immunization history:: Adult Immunizations up to date. - Social history:: Smoking status: Patient denies any tobacco usage or history of. Screenin:00 Abuse screen: Denies threats or abuse. Nutritional screening: No deficits noted. aa5 Tuberculosis screening: No symptoms or risk factors identified. Fall Risk None identified. Assessment: 08:40 General: Appears uncomfortable, Behavior is calm, cooperative. Pain: Complains of pain aa5 in head and whole body Pain does not radiate. Pain currently is 10 out of 10 on a pain scale. Quality of pain is described as aching, Pain began 5 days ago Is continuous. Neuro: Level of Consciousness is awake, alert, obeys commands, Oriented to person, place, time, situation. Cardiovascular: Heart tones S1 S2 present Rhythm is regular. Respiratory: Reports shortness of breath and cough Airway is patent Respiratory effort is even, unlabored, Respiratory pattern is regular, symmetrical, Breath sounds are clear bilaterally. GI: Abdomen is flat, non-distended, Bowel sounds present X 4 quads. Abd is soft and non tender X 4 quads. Reports nausea. : No signs and/or symptoms were reported regarding the genitourinary system. EENT: Reports sore throat . Derm: Skin is pink, warm \T\ dry. Musculoskeletal: Range of motion: intact in all extremities. 09:30 Reassessment: Patient is alert, oriented x 3, equal unlabored respirations, skin aa5 warm/dry/pink. 10:30 Reassessment: Patient is alert, oriented x 3, equal unlabored respirations, skin aa5 warm/dry/pink. Pt reports nausea has improved, pt reports headache and body aches remain the same, MD was notified. Awaiting x-ray at this time. . 11:00 Reassessment: x-ray at bedside . aa5 11:44 Reassessment: Patient is alert, oriented x 3, equal unlabored respirations, skin aa5 warm/dry/pink. Vital Signs: 08:22 BP 128 / 68; Pulse 92; Resp 18; Temp 99.1(TE); Pulse Ox 100% on R/A; Pain 10/10; hb 08:52 Weight 60.33 kg (R); hb 09:31 BP 107 / 68; Pulse 80; Resp 17; Temp 98.5(O); Pulse Ox 100% on R/A; mh5 10:57 BP 114 / 60; Pulse 83; Resp 16; Temp 98.0; Pulse Ox 100% on R/A; mh5 ED Course: 08:14 Patient arrived in ED. ds1 08:25 Triage completed. hb 08:27 Arm band placed on. hb 08:30 Miquel Rios MD is Attending Physician. kdr 08:30 Jaycee Brewer, ROSEY is Primary Nurse. aa5 09:11 Initial lab(s) drawn, by me, sent to lab. Inserted saline lock: 20 gauge in right aa5 antecubital area, using aseptic technique. Blood collected. 09:34 Patient has correct armband on for positive identification. Bed in low position. Call 5 light in reach. Side rails up X 1. Warm blanket given. Pulse ox on. NIBP on. 11:16 CXR XRAY In Process Unspecified. EDMS 11:36 IV discontinued, Pressure dressing applied. mh5 11:36 No provider procedures requiring assistance completed. Patient maintains SpO2 aa5 saturation greater than 95% on room air. Administered Medications: 09:12 Drug: SOLU-Medrol 125 mg Route: IVP; Site: right antecubital; aa5 09:12 Drug: Pepcid 20 mg Route: IVP; Site: right antecubital; aa5 09:12 Drug: NS 0.9% (30 ml/kg) 30 ml/kg Route: IV; Rate: bolus; Site: right antecubital; aa5 09:13 Drug: Phenergan 12.5 mg Route: IVP; Site: right antecubital; aa5 09:25 Not Given (Patient Refused): TORadol - Ketorolac 15 mg IVP once aa5 09:25 Drug: morphine 2 mg Route: IVP; Site: right antecubital; aa5 Outcome: 11:26 Discharge ordered by . kdr 11:40 Discharged to home ambulatory. aa5 11:40 Condition: stable aa5 11:40 Discharge instructions given to patient, Instructed on discharge instructions, follow up and referral plans. medication usage, Demonstrated understanding of instructions, follow-up care, medications, Prescriptions given X 1. 11:44 Patient left the ED. aa5 Signatures: Dispatcher [employer] EDFL Miquel Rios MD MD kdr Sanford, Demi ds1 Jaycee Brewer, RN RN aa5 Judi Rich RN RN Emilia Scott 5 Corrections: (The following items were deleted from the chart) 08:30 08:22 Chief complaint: N/D, cough, lack of taste and smell, body aches, headache, sore hb throat, shortness of breath, and chest tightness x 5 days. Tested COVID + on Saturday. hb
[2020-05-27 11:48] VITALS: O2SAT 100
[2020-05-27 11:51] VITALS: BP 114/60; TEMP 98
== END 2020-05-27 11:44 | disposition home or self-care (01) ==
LOC: ER 08:11
DX: U07.1 COVID-19 (principal); R51.9 Headache, unspecified; Z88.8 Allergy status to other drugs, medicaments and biological substances
CPT/HCPCS: 36415; 71045; 80048; 81003; 81025; 85025; 96374; 96375; 99284; J2270

== ENCOUNTER 2020-06-02 10:36 | Emergency (ER) | payer MEDICAID, SELFPAY ==
--- OUTSIDE RECORDS SUMMARY | 2020-06-02 10:45 | XMS REPORT | Continuity of Care Document ---
:1995 Author Organization [facility] t Address [address] [place] [address] Care Team Providers Name Role Phone Farzana Larry Attending Clinician Marleny Silvestre Attending Clinician Joey Armstrong MD Attending Clinician Heather HENDRICKS Attending Clinician Miguel Anderson Attending Clinician Clinic, Neurology Continuity Attending Clinician Brandi Hitchcock MD Attending Clinician Problems This patient has no known problems. Allergies, Adverse Reactions, Alerts This patient has no known allergies or adverse reactions. Medications This patient has no known medications. Procedures This patient has no known procedures. Encounters Start End Encounter Admission Attending Care Care Encounter Source Date/Time Date/Time Type Type Clinicians Facility Department ID 2020-05-29 2020-05-29 Emergency Ana, [facility] [id number] 10:50:00 14:19:00 Larry Richards [id number] [place] [id number] [place] [id number] 2020-05-28 2020-05-28 Urgent Leanne [facility] [id number] 08:20:24 09:31:12 Care Cari [facility] [id number] [place] [id number] [facility] [id number] nal 0[address] One 2020-05-252020-05-25 [facility] [id number] 00:00:00 00:00:00 Darrion Richards [id number] [place] [id number] [place] [id number] nal 092 [facility] 2020-05-24 2020-05-24 [facility] Gayathri Romero [facility] [id number] 08:50:11 23:59:00 Encounter Health [id number] [place] [id number] [place] [phone] Hospital 803 ([facility]) 2020-05-23 2020-05-23 Emergency [facility] [id number] 11:25:00 13:24:00 Johnathan Richards [id number] [place] [id number] [place] [id number] 2020-05-20 2020-05-20 Letter Clinic, [facility] [id number] 00:00:00 00:00:00 (Out) Neurology [facility] [id number] Continuity CLINICS [id number] 2020-05-19 2020-05-19 Telemedici [place] [id number] 07:46:35 08:16:35 ne Visit Y HEALTH [id number] CLINICS [id number] 2020-05-17 2020-05-17 Office [facility] [id number] 12:37:40 13:59:34 Visit Darrion Richards [id number] [place] [id number] [facility] [id number] nal 092 [facility] 2020-04-18 2020-04-18 Telemedici [facility] [id number] 07:51:17 08:21:17 ne Visit Y HEALTH [id number] CLINICS [id number] Results This patient has no known results.
--- OUTSIDE RECORDS SUMMARY | 2020-06-02 10:56 | XMS REPORT | Summary of Care ---
:1995 Author Organization [facility] Address [address] [place] [id number] Care Team Providers Name Role Phone Jessica Baker Insurance Hmo Kassandra Dennis MD Primary Care Provider Reason for Visit Reason Comments Diarrhea 5 days Vomiting 5 days Shortness of Breath 5 days Cough 5 days Fatigue 5 days Congestion 5 days Body Aches 5 days Chills 5 days RUNNY NOSE 5 days Headache 5 days Encounter Details Date Type Department Care Team Description 05/28/2020 Urgent Care [facility] Family Cari Perdomo Sh ortness of breath on exertion (Primary Dx); [facility] 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 Anxiety disorder, unspecified type; [address] [place] [address] [place] [address] [phone] Allergies Active Allergy Reactions Severity Noted Date Comments Latex Rash 04/13/2020 Metoclopramide Hcl Anxiety 07/12/2019 Patient s ays she gets figity, angry and mean documented as of this encounter (statuses as of 05/28/2020) Medications Medication Sig Dispensed Refills Start Date End Date Status metoprolol succinate Take 0.5 tablets 90 tablet 1 05/02/2020 0 07/31/2020 Active XL 25 mg 24 hr by mouth 2 (two) tabletIndications: times daily for Palpitations 90 days. topiramate 25 mg Take 1 tablet by 60 tablet 1 05/17/2020 Active tablet mouth 2 (two) times daily. FLUoxetine 20 mg Take 20 mg by 0 04/13/2020 Active capsule mouth daily. albuterol 90 Inhale 2 Puffs 1 Each 0 05/28/2020 06/07/2020 Active mcg/actuation every 6 (six) inhalerIndications: hours as needed Shortness of breath for Wheezing or on exertion Shortness of Breath for up to 10 days. hydrOXYzine 25 mg Take 1 tablet by 30 tablet 0 05/28/202005/14 Active tabletIndications: mouth every 8 Anxiety disorder, (eight) hours as unspecified type needed for Anxiety for up to 10 days. 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 documented as of this encounter Last Filed Vital Signs Vital Sign Reading Time Taken Comments Blood Pressure 132/87 05/28/2020 8:34 AM SUPERVISOR STOCK RANCH Pulse 86 05/28/2020 8:34 AM SUPER[employer]OR [employer] RANCH Temperature 36.9 C (98.5 F) 05/28/2020 8:34 AM SUPERVISOR STOCK RANCH Respiratory Rate 18 05/28/2020 8:34 AM SUPERVISOR STOCK RANCH Oxygen Saturation 99% 05/28/2020 8:34 AM SUPER[employer] RANCH Inhaled Oxygen Concentration - - Weight 60.3 kg (133 lb) 05/28/2020 8:34 AM SUPER[employer]OR STOCK RAN[employer] Height 157.5 cm (5' 2") 05/28/2020 8:34 AM SUPER[employer] RANCH Body Mass Index 24.33 05/28/2020 8:34 AM SU[employer]ANCH documented in this encounter Patient Instructions Patient InstructionsCari Perdomo FNP - 05/28/2020 10:00 AM SU[employer] Patient Education AnxietyReaction Anxiety is the feeling [...] eased by rest and mild pain reliever [employer] last reviewed this educational content on 08/12/201919992513-6641 [employer]. All rights reserved. This information is not intended as a substitute for professional medical care. Always follow your healthcare professional's instructions. [employer]OR STOCK RANCH documented in this encounter Progress Notes Cari Perdomo FNP - 05/28/2020 10:00 AM CST Cc: Chief Complaint Patient presents with Diarrhea 5 days Vomiting 5 days Shortness of Breath 5 days Cough 5 days Fatigue 5 days Congestion 5 days Body Aches 5 days Chills 5 days RUNNY NOSE 5 days Headache 5 days Natanael Nelia Dyson is a 25 year old female. Patient tested positive on 05/23/2020 and reporting she is using her albuterol inhaler 6-10 times perday. Patient reports hx of anxiety. Reports went to [facility] and given RX for pulmicort and could not get filled as it was not covered by her insurance. Allergies Natanael is allergic to latex and reglan [metoclopramide hcl]. Medications Outpatient Medications Prior to Visit Medication Sig Dispense Refill FLUoxetine 20 mg capsule Take 20 mg by mouth daily. topiramate 25 mg tablet Take 1 tablet by mouth 2 (two) times daily. 60 tablet 1 metoprolol succinate XL 25 mg 24 hr tablet Take 0.5 tablets by mouth 2 (two) times daily for 90 days. 90 tablet 1 No facility-administered medications prior to visit. Histories Past Medical History: Diagnosis Date Anemia [...] N/A 07/21/2019 Surgeon: Shelia Quiñonez MD; Location: [facility] OR Location TUBAL LIGATION N/A 07/21/2019 Surgeon: Shelia Quiñonez MD; Location: [facility] OR Location Social [...] file Gets together: Not on file Attends temple service: Not on file Active member of [...] safe at home. Patient has 1 cat. Family History Problem Relation Age of Onset Diabetes Mother Heart Mother Neurological Mother Diabetes Father Neurological Father Asthma Sister Asthma Brother Ovarian Cancer Maternal Grandmother Breast Cancer Maternal Grandmother Heart Maternal Grandmother Neurological Maternal Grandmother Diabetes Maternal Grandfather Heart Maternal Grandfather Neurological Maternal Grandfather Heart Paternal Grandmother Ovarian Cancer Paternal Grandmother Cancer Paternal Grandfather Review of Systems Constitutional: Positive for chills and fatigue. Respiratory: Positive for cough and shortness of breath. Cardiovascular: Negative. Gastrointestinal: Negative. Musculoskeletal: Positive for myalgias. Neurological: Positive for headaches. Psychiatric/Behavioral: The patient is nervous/anxious. Vital Signs BP 132/87 | Pulse 86 | Temp 36.9 C (98.5 F) (Oral) | Resp 18 | Ht 5' 2" (1.575 m) | Wt 133 lb (60.3 kg) | SpO2 99% | BMI 24.33 kg/m Physical Exam Vitals signs and nursing note reviewed. Constitutional: General: She is not in acute distress. Appearance: Normal appearance. She is not ill-appearing. HENT: Head: Normocephalic. Right Ear: Tympanic membrane normal. Left Ear: Tympanic membrane normal. Nose: No congestion or rhinorrhea. Mouth/Throat: Mouth: Mucous membranes are moist. Neck: Musculoskeletal: Normal range of motion. Cardiovascular: Rate and Rhythm: Normal rate and regular rhythm. Pulses: Normal pulses. Heart sounds: Normal heart sounds. Pulmonary: Effort: Pulmonary effort is normal. Breath sounds: Normal breath sounds. No wheezing. Abdominal: Palpations: Abdomen is soft. Skin: Capillary Refill: Capillary refill takes less than 2 seconds. Neurological: General: No focal deficit present. Mental Status: She is alert and oriented to person, place, and time. Psychiatric: Attention and Perception: Attention normal. Mood and Affect: Mood is anxious. Behavior: Behavior is cooperative. Thought Content: Thought content normal. Assessment/Plan 1. Shortness of breath on exertion - albuterol 90 mcg/actuation inhaler; Inhale 2 Puffs every 6 (six) hours as needed for Wheezing or Shortness of Breath for up to 10 days. Dispense: 1 Each; Refill: 0 2. Anxiety disorder, unspecified type - hydrOXYzine 25 mg tablet; Take 1 tablet by mouth every 8 (eight) hours as needed for Anxiety for up to 10 days. Dispense: 30 tablet; Refill: 0 3. Sore throat - POCT RAPID STREP SCREEN FOR GROUP A Recent Labs 05/28/20 0916 POCTCRSS negative - ER precautions provided for severe headache, weakness, slurred speech, numbness, chest pain, syncope, or any other worsening symptoms. This visit did not involve counseling and coordination that comprised more than 50% of the visit time. documented in this encounter Plan of Treatment Date Type Specialty Care Team Description 06/09/2020 Appointment Radiology Gayathri Romero FNP [address] [place] [address] [phone] 06/09/2020 Appointment Radiology Darrion Armstrong MD [address] [place] [address] [phone] 06/16/2020 Office Visit Cardiology Rad Potts MD [address] [place] [address] [address] [place] [address] [phone] 08/11/2020 Office Visit Obstetrics & Gynecology Young Quiñonez MD [address] [place] [phone] Health Maintenance Due Date Last Done Comments HPV VACCINES (1 - 2-dose series) 2006 PAP SMEAR 02/19/2016 Depression Screening 09/01/2020 09/02/2019, 09/02/2019 DTaP,Tdap,and Td Vaccines (2 - Td) 05/21/2029 05/21/2019 INFLUENZA VACCINE Completed 05/19/2020, 02/06/2019 PNEUMOCOCCAL 0-64 YEARS COMBINED SERIES Discontinued documented as of this encounter Procedures Procedure Name Priority Date/Time Associated Diagnosis Comme nts POCT RAPID STREP Routine 05/28/2020 9:16 AM Sore throat Resu lts for this SCREEN FOR GROUP A [employer] procedure are in the results section. documented in this encounter Results POCT RAPID STREP SCREEN FOR GROUP A (05/28/2020 9:16 AM SUPER[employer]) Pathologist Sig nature POCT GP A STREP negative Negative - Negative Specimen Swab - THROAT Narrative Performed At [facility] development and interpretation of all internal controls documented in this encounter Visit Diagnoses Diagnosis Shortness of breath on exertion - Primar y Shortness of breath Anxiety disorder, unspecified type Sore throat Acute pharyngitis documented in this encounter Additional Health Concerns Infection Onset Date Last Indicated Resolved Time COVID-19 Confirmed 05/23/2020 05/23/2020 documented as of this encounter Insurance Payer Benefit Plan / Subscriber ID Effective Phone Address T ype Group Dates SAMMY CHRISTIANSON [id number] 2019-[address] Medic aid [place] [id number] MANAGED MEDICAID [place], [place] documented as of this encounter
--- OUTSIDE RECORDS SUMMARY | 2020-06-02 10:57 | XMS REPORT | Summary of Care ---
:1995 Author Organization [facility] Address [address] [place] [address] Care Team Providers Name Role Phone Jessica Baker Insurance Hmo Kassandra Dennis MD Primary Care Provider Reason for Visit Reason Comments Assessment Encounter Details Date Type Department Care Team Description 05/25/2020 Telephone [facility] Darrion Armstrong MD Assessment Neurology-[address] [place] [id number] [address] [place] [address] [phone] Allergies Active Allergy Reactions Severity Noted Date Comments Prochlorperazine Anxiety 05/29/2020 Latex Rash 04/13/2020 Metoclopramide Hcl Anxiety 07/12/2019 Patient s ays she gets figity, angry and mean documented as of this encounter (statuses as of 05/31/2020) Medications Medication Sig Dispensed Refills Start Date [...] by 0 04/13/2020 Active capsule mouth daily. 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 documented as of this encounter Last Filed Vital Signs Not on filedocumented in this encounter Miscellaneous Notes Telephone Encounter - Edwige Tatum LVN - 05/31/2020 2:38 PM CSTSpoke to patient and she states she went to ED and they gave her an inhaler. Closing encounter. elephone Encounter - Braeden Branham - 05/26/2020 1:28 PM CSTFrancel Nelia Dyson is a 25 year old female, patient is calling in regards to status of encounter. Patient would also like to request an inhaler for the SOB caused by her recent covid-19 diagnosis. Please contact patient at earliest convenience to discuss at [phone] (home). elephone Encounter - Edwige Tatum LVN - 05/25/2020 9:38 AM CSTAttempted to contact patient. Left VM with direct number. 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 She states that she was doing fine until today and feels like she got hit with a dump truck. Please contact [phone] (home) documented in this encounter Plan of Treatment Date Type Specialty Care Team Description 06/09/2020 Appointment Radiology Gayathri Romero, ELAIDO [address] [place] [address] [phone] 06/09/2020 Appointment Radiology Darrion Armstrong MD [address] [place] [address] [phone] 06/16/2020 Office Visit Cardiology Rad Potts MD [address] [place] [address] [address] [place] [address] [phone] 08/11/2020 Office Visit Obstetrics & Gynecology Young Quiñonez MD [address] [place] [address] 15 Health Maintenance Due Date Last Done [...] Address T e Group Dates SAMMY CHRISTIANSON [id number] 2019- [address] Medic aid HEALTHCARE [place] [id number] MANA[place]ED MED[place]ID [place] documented as of this encounter
--- OUTSIDE RECORDS SUMMARY | 2020-06-02 10:57 | XMS REPORT | Summary of Care ---
:1995 Author Organization [facility] - [facility] Address [address] [place] [address] Care Team Providers Name Role Phone Jessica Baker Insurance Hmo Kassandra Dennis MD Primary Care Provider Reason for Referral MRI/CAT Scan (STAT) Status Reason Specialty Diagnoses / Referred By Referred To Procedures Contact Contact New Request Diagnostic Diagnoses Bloody diarrhea COVID-19 virus infection Generalized abdominal pain Nausea and vomiting, intractability of vomiting not specified, unspecified vomiting type Larry Perez Radiology Procedures CT ABDOMEN PELVIS W CONTRAST R, SUPERVISOR DITCHING [address] [place] [address] Reason for Visit Reason Comments Abdominal Pain Vomiting Other COVID+ Auth/Cert Status Reason Specialty Diagnoses / Referred By Referred To Procedures Contact Contact Emergency Medicine [facility]ency Dept [address] [place] [address] Fax: Encounter Details Date Type Department Care Team Description 05/29/2020 Emergency [facility]-Emergency Larry Perez R, Bloody diar elvis (Primary Dx); Department SUPERVISOR DITCHING COVID-19 virus infection; [address] [place] [address] Generalized abdominal pain; [place], [place] Nausea and vomiting, intract ability of vomiting not specified, unspecified vomiting type; [place] [address] Viral syndrome [phone] Allergies Active Allergy Reactions Severity Noted Date Comments Prochlorperazine Anxiety 05/29/2020 Latex Rash 04/13/2020 Metoclopramide Hcl Anxiety 07/12/2019 Patient s ays she gets figity, angry and mean documented as of this encounter (statuses as of 05/29/2020) Medications Medication Sig Dispensed Refills Start Date [...] Take 1 tablet by 30 tablet 0 05/28/2020/2 10/2020 Active tabletIndications: mouth every 8 Anxiety disorder, (eight) hours as unspecified type needed for Anxiety for up to 10 days. dicyclomine (BENTYL) Take 1 capsule 40 capsule 0 05/29/2020 Active 10 mg by mouth 4 capsuleIndications: (four) times COVID-19 virus daily as needed infection, for Abdominal Generalized abdominal pain for up to pain, Nausea and 10 days. vomiting, intractability of vomiting not specified, unspecified vomiting type, Viral syndrome proMETHazine 25 mg Take 1 tablet by 15 tablet 0 05/29/2020 Active tabletIndications: mouth every 6 COVID-19 virus (six) hours as infection, needed for Generalized abdominal Nausea and pain, Nausea and Vomiting (N/V). vomiting, intractability of vomiting not specified, unspecified vomiting type, Viral syndrome documented as of this encounter (statuses as of 05/29/2020) Active Problems Problem Noted Date Visual changes 05/07/2020 Headache 04/30/2020 Sinus tachycardia 04/13/2020 Abdominal pain 04/13/2020 Anxiety disorder, unspecified type 01/05/2020 Insomnia, unspecified type 01/05/2020 Other depression 08/13/2019 documented as of this encounter (statuses as of 05/29/2020) Resolved Problems Problem Noted Date Resolved Date [...] as of this encounter (statuses as of 05/29/2020) Immunizations Name Administration Dates Next Due Influenza [...] in contact with Yes 05/29/2020 10:47 AM INSOLE CEMENTER someone who was confirmed or 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 documented as of this encounter Last Filed Vital Signs Vital Sign Reading Time Taken Comments Blood Pressure 123/79 05/29/2020 2:00 PM INSOLE CEMENTER Pulse 67 05/29/2020 2:00 PM INSOLE CEMENTER Temperature 37 C (98.6 F) 05/29/2020 10:57 AM INSOLE CEMENTER Respiratory Rate 13 05/29/2020 2:00 PM INSOLE CEMENTER Oxygen Saturation 99% 05/29/2020 2:00 PM INSOLE CEMENTER Inhaled Oxygen Concentration - - Weight 60.3 kg (133 lb) 05/29/2020 10:57 AM INSOLE CEMENTER Height - - Body Mass Index 24.33 05/28/2020 8:34 AM INSOLE CEMENTER documented in this encounter Discharge Instructions Larry Velarde FNP - 05/29/2020 DIAGNOSIS 1. Abd pain 2. Viral syndrome 3. Vomiting and diarrhea. 4. Covid NO LIFE-THREATENING FINDINGS ON TODAY'S EXAM. PROCEDURES IN THE ER TODAY: Orders Placed This Encounter Procedures CT ABDOMEN PELVIS W CONTRAST Urinalysis CBC with Differential Basic Metabolic Panel (NA, K, CL, CO2, GLUCOSE, BUN, CREATININE, CA) Hepatic Function Panel (ALB, T.PRO, BILI T, BU/BC, ALT, AST, ALK PHOS) Lipase Serum POCT Test aPTT Prothrombin Time (PT) / INR MEDICATIONS ADMINISTERED IN THE ER TODAY: Medications NaCl 0.9% (NS) bolus infusion 1,000 mL (1,000 mL IV Infusion New Bag 05/29/20 1129) ondansetron (ZOFRAN (PF)) injection 4 mg (4 mg Slow IV Push Given 05/29/20 1131) famotidine (PEPCID (PF)) injection 20 mg (20 mg Slow IV Push Given 05/29/20 1131) acetaminophen (TYLENOL) tablet 650 mg (650 mg Oral Given 05/29/20 1153) bkqwzyhxru-ozscbezuhjlwi-zete (ESGIC) 50-325-40 mg tablet 1 tablet (1 tablet Oral Given 05/29/20 1153) maalox:diphenhydrAMINE:lidocaine 2 % viscous 1:1:1 (FIRST-MOUTHWASH BLM) oral suspension 15 mL (15 mL Oral Given 05/29/20 1153) FENTanyl PF (SUBLIMAZE (PF)) injection 25 mcg (25 mcg Slow IV Push Given 05/29/20 1308) proMETHazine (PHENERGAN) 12.5 mg in NaCl 0.9% (NS) 50 mL piggyback (12.5 mg IV Piggyback Given 05/29/20 1227) iohexol (OMNIPAQUE 350 BULK-150 mL) injection 120 mL (120 mL Intravenous Given 05/29/20 1247) YOUR PRESCRIPTIONS AND [id number]-[id number] MEDICATION RECOMMENDATIONS: New Prescriptions DICYCLOMINE (BENTYL) 10 MG CAPSULE Take 1 capsule by mouth 4 (four) times daily as needed for Abdominal pain for up to 10 days. PROMETHAZINE 25 MG TABLET Take 1 tablet by mouth every 6 (six) hours as needed for Nausea and Vomiting (N/V). SPECIAL CARE INSTRUCTIONS: Take bentyl for abd pain. Tylenol and Motrin for body aches and fever. Phenergan for nausea and vomiting. [place]son diet Drink lots of fluids. FOLLOW-UP RECOMMENDATIONS: RECOMMEND FOLLOW-UP WITH A PRIMARY CARE PROVIDER OR SPECIALIST IN 2-5 DAYS, ESPECIALLY IF NO IMPROVEMENT IN SYMPTOMS. TO FOLLOW-UP WITHIN THE [facility], TRY THESE OPTIONS (CLINIC APPOINTMENTS AVAILABLE ON [id number] BASIS): 1. SCHEDULE AN APPOINTMENT ONLINE AT WWW.[facility] 2. OR CALL THE [facility] ACCESS CENTER AT OR 3. OR CALL YOUR [facility] PHYSICIAN'S OFFICE DIRECTLY IF YOU ARE ALREADY AN ESTABLISHED [facility] PATIENT. OR, YOU MAY FOLLOW-UP WITH A PROVIDER OF YOUR CHOICE, SUCH : 1. A PHYSICIAN OF YOUR CHOICE 2. [facility], . LOCATIONS IN [facility] 3. [facility], [address] [place], [place]; [phone] RETURN TO ER FOR WORSENING OF SYMPTOMS. AttachmentsThe following attachments cannot be sent through Care Everywhere. Diarrhea, Treating (Puerto Rican)Caring for Someone Who Has COVID-19 (Puerto [place]ican) Coronavirus Disease 2019 (COVID-19), Prevention ([place])documented in this encounter ED Notes Kiarra Wood RN - 05/29/2020 10:54 AM CSTPatient reports abdominal pain , bloody diarrhea, body aches, shortness of breath, and vomiting bloody emesis, loss of smell, loss of taste for two days Patient tested positive COVID on 05/23 documented in this encounter Miscellaneous Notes ED Nurse Note - Tc Menjivar RN - 05/29/2020 2:18 PM CSTPt given printed and verbal discharge instructions regarding COVID 19, encouraged hydration, Prescriptions provided bentyl Discussed promethazine side affects and to avoid driving/operating machinery/or engaging in activities requiring alertness while taking. Pt verbalized understanding of instructions, pt awake alert oriented, resp reg unlabored, skin w/d, color appropriate for race, moves all ext well,pt encouraged to follow up with pcp Advised to seek medical attention for new/prolonged/worsening of symptoms, Symptoms improved No adverse reaction to meds given in ER noted upon discharge PIV d'cd, dressing to site, catheter in tact. Awake, alert oriented, resp reg unlabored, skin w/d, pt leaving amb with steady gait, in no apparent distress, LE CEMENTER documented in this encounter Plan of Treatment Date Type Specialty Care Team Description 06/09/2020 Appointment Radiology Gayathri Romero, SUPERVISOR DITCHING [address] [place] [address] [phone] 06/09/2020 Appointment Radiology Darrion Armstrong MD [address] [place] [address] [phone] 06/16/2020 Office Visit Cardiology Rad Potts MD [address] [place] [phone] 08/11/2020 Office Visit Obstetrics & Gynecology Young Quiñonez MD [address] [place] [phone] 15 Name Type Priority Associated Diagnoses Date/Ti me CT ABDOMEN PELVIS W IMAGING STAT Bloody diarr hea 05/29/2020 12:53 PM CONTRAST COVID-19 virus i nfection INSOLE CEMENTER Generalized abdo heriberto pain Nausea and vomiting, intractability of vomiting not specified, unspecified vomiting type Health Maintenance Due Date Last Done Comments HPV VACCINES (1 - 2-dose series) 2006 PAP SMEAR 02/19/2016 Depression Screening 09/01/2020 09/02/2019, 09/02/2019 DTaP,Tdap,and Td Vaccines (2 - Td) 05/21/2029 05/21/2019 INFLUENZA VACCINE Completed 05/19/2020, 02/06/2019 PNEUMOCOCCAL 0-64 YEARS COMBINED SERIES Discontinued documented as of this encounter Procedures Procedure Name Priority Date/Time Associated Diagnosis Comme nts CT ABDOMEN PELVIS W STAT 05/29/2020 12:53 PM Bloody d iarrhea CONTRAST INSOLE CEMENTER COVID-19 virus i nfection Generalized abdominal pain Nausea and vomiting, intractability of vomiting not specified, unspecified vomiting type Procedure Note - [facility], Radia nt Results Inft User - 05/29/2020 1:42 PM INSOLE CEMENTER EXAM: CT ABDOMEN/PELVIS WITH CONTRAST HISTORY: Abd pain, acute, g eneralized COMPARISON: 04/21/2020 TECHNIQUE: Contiguous axial imaging from the level of the lung bases through the proximal thighs was performed after the administration of 120 cc of intravenous Omnipaque contrast. Coronal and sagittal reconstructions were obtained. Auto mA and/ or iterative reconstruction were used to reduce radiation dose. FINDINGS: LOWER THORAX: The lungs base s are clear. No cardiomegaly. LIVER: No focal hepatic lesi ons. Normal contour. The liver measures 19 cm in craniocaudal dimension. GALLBLADDER AND BILIARY TREE : No biliary ductal dilation. No gallbladder wall thickening. SPLEEN: Mild splenomegaly, m easuring 13.2 cm in craniocaudal dimension. A subcentimeter hypodensity in the inferior pole of the spleen, too small to characterize, but likely a c yst. PANCREAS: No ductal dilation or masses. ADRENAL GLANDS: No adrenal n odules. KIDNEYS: No hydronephrosis, stones, or masses. PERITONEUM AND RETROPERITONE UM: No free air or fluid. LYMPH NODES: No lymphadenopa thy. GI TRACT: No dilation or wal l thickening. Number appendix. PELVIS/BLADDER: The urinary bladder is mildly distended, unremarkable. The uterus is mildly heterogeneo us. The right ovary is unremarkable. A 1.6 cm hypodensity within the left ovary, technically indeterminate, but likely a cyst. VESSELS: Unremarkable. BONES AND SOFT TISSUES: No s uspicious lytic or sclerotic bony lesions. Low transverse incisio n scar is present. IMPRESSION 1. No acute intra-abdominal or intrapelvic process. 2. Hepatosplenomegaly. Preliminary Report Dictated by Resident: Baylee Marquez POCT [place] 05/29/2020 11:49 Bloody diarrhea Results for TEST AM INSOLE CEMENTER COVID-19 virus i nfection this procedure Generalized abdo heriberto pain are in the Nausea and vomiting, results intractability of vomiting s ection. not specified, unspecified vomiting type URINALYSIS STAT 05/29/2020 11:48 Bloody diarrhea Results for AM INSOLE CEMENTER COVID-19 virus i nfection this procedure Generalized abdo heriberto pain are in the Nausea and vomiting, results intractability of vomiting s ection. not specified, unspecified vomiting type ACTIVATED PARTIAL STAT 05/29/2020 11:27 Bloody diarrh ea Results for THRMPLAS KEILA AM INSOLE CEMENTER COVID-19 virus i nfection this procedure Generalized abdo heriberto pain are in the Nausea and vomiting, results intractability of vomiting s ection. not specified, unspecified vomiting type PROTHROMBIN TIME / STAT 05/29/2020 11:27 Bloody diarr hea Results for INR AM INSOLE CEMENTER COVID-19 virus i nfection this procedure Generalized abdo heriberto pain are in the Nausea and vomiting, results intractability of vomiting s ection. not specified, unspecified vomiting type CBC WITH DIFF STAT 05/29/2020 11:27 Bloody diarrhea Results for AM INSOLE CEMENTER COVID-19 virus i nfection this procedure Generalized abdo heriberto pain are in the Nausea and vomiting, results intractability of vomiting s ection. not specified, unspecified vomiting type BASIC METABOLIC STAT 05/29/2020 11:27 Bloody diarrhea Results for PANEL (NA, K, CL, AM INSOLE CEMENTER COVID-19 virus infection this procedure CO2, GLUCOSE, BUN, Generalized a bdominal pain are in the CREATININE, CA) Nausea and vomiting, resu lts intractability of vomiting s ection. not specified, unspecified vomiting type HEPATIC FUNCTION STAT 05/29/2020 11:27 Bloody diarrhe a Results for PANEL (71517) AM INSOLE CEMENTER COVID-19 virus i nfection this procedure (ALB,T.PRO,BILI Generalized abdo heriberto pain are in the T,BU/BC,ALT,AST,AL Nausea and vomiting, r esults K PHOS) intractability of vomiting s ection. not specified, unspecified vomiting type LIPASE STAT 05/29/2020 11:27 Bloody diarrhea Results for AM INSOLE CEMENTER COVID-19 virus i nfection this procedure Generalized abdo heriberto pain are in the Nausea and vomiting, results intractability of vomiting s ection. not specified, unspecified vomiting type NOTICE OF PRIVACY Routine 05/29/2020 10:51 PRACTICES AM INSOLE CEMENTER CONSENT/REFUSAL Routine 05/29/2020 10:47 FOR DIAGNOSIS AND AM INSOLE CEMENTER TREATMENT documented in this encounter Results POCT Test (05/29/2020 11:49 AM INSOLE CEMENTER) Pathologist Sig nature POCT PREG negative On board controls acceptable present with C Line POCT PREG LOT # [id number] POCT PREG TEST DATE 01/10/2022 Specimen Urine - URINE, CLEAN CATCH Urinalysis (05/29/2020 11:48 AM INSOLE CEMENTER) Pathologist Sig nature APPEARANCE Clear Clear [facility] COLOR Straw (A) Yellow [facility] PH 8.0 4.8 - 8.0 [facility] SP GRAVITY 1.009 1.003 - 1.030 [facility] GLU U QUAL Normal Normal [facility] BLOOD Negative Negative [facility] KETONES Negative Negative [facility] PROTEIN Negative Negative [facility] UROBILIN Normal Normal [facility] BILIRUBIN Negative Negative [facility] NITRITE Negative Negative [facility] LEUK ANJELICA Negative Negative [facility] RBC/HPF <1 0 - 3 HPF [facility] WBC/HPF <1 0 - 5 HPF [facility] BACTERIA Negative Negative [facility] SQ EPITH 3 HPF [facility] Specimen Urine - URINE, CLEAN CATCH Performing Organization Address City/[facility]ode Phone Number [facility] CLIA: [id number] [place] [address] Prothrombin Time (PT) / INR (05/29/2020 11:27 AM INSOLE CEMENTER) PROTIME PATIENT 12.8 12.0 - 14.7 [facility] LABORATORY INR 1.0Comment: Normal [facility] INR <1.1; [facility] Therapeutic range LABORATORY 2.0 to 3.0 or 2.5 to 3.5, depending upon the indications. Specimen Blood - VENOUS Performing Organization Address [facility] Centercooh Phone Number [facility] CLIA: [id number] [place] [address] aPTT (05/29/2020 11:27 AM INSOLE CEMENTER) Pathologist Sig nature APTT Patient 24 23 - 38 Seconds [facility] Specimen Blood - VENOUS Narrative Performed At The [facility] patient population mean normal value [facility] for aPTT is 30 seconds. Performing Organization Address [facility] Centercode Phone Number [facility] CLIA: [id number] [place] [address] Lipase Serum (05/29/2020 11:27 AM INSOLE CEMENTER) Pathologist Sig nature LIPASE 73 0 - 220 U/L [facility] Specimen Blood - VENOUS Performing Organization Address [facility]cooh Phone Number [facility] CLIA: [id number] [place] [address] LAB[address] [facility] Hepatic Function Panel (ALB, T.PRO, BILI T, BU/BC, ALT, AST, ALK PHOS) (05/29/2020 11:27 AM INSOLE CEMENTER) Pathologist Sig nature TOTAL BILI 0.4 0.1 - 1.1 mg/dL [facility] BILI UNCON 0.3 0.1 - 1.1 mg/dL [facility] BILI CONJ 0.0 0.0 - 0.3 mg/dL [facility] T PROTEIN 7.1 6.3 - 8.2 g/dL [facility] ALBUMIN 4.3 3.5 - 5.0 g/dL [facility] ALK PHOS 70 34 - 122 U/L [facility] ALTv 18 5 - 35 U/L [facility] AST(SGOT) 25 13 - 40 U/L [facility] Specimen Blood - VENOUS Performing Organization Address [facility]cooh Phone Number [facility] CLIA: [id number] [place] [address] [place] [address] Basic Metabolic Panel (NA, K, CL, CO2, GLUCOSE, BUN, CREATININE, CA) (05/29/2020 11:27 AM INSOLE CEMENTER) Pathologist Sig nature NA 139 135 - 145 [facility] mmol/L HOSPITAL [facility] K 3.6 3.5 - 5.0 [facility] mmol/L HOSPITAL [facility]ORY CL 108 98 - 108 mmol/L [facility] CO2 TOTAL 22 (L) 23 - 31 mmol/L [facility] AGAP 9 2 - 16 [facility] BUN 11 7 - 23 mg/dL [facility] GLUCOSE 91 70 - 110 mg/dL [facility] CREATININE 0.79 0.50 - 1.04 [facility] mg/dL [facility] CALCIUM 8.9 8.6 - 10.6 [facility] mg/dL HOSPITAL LABORATORY eGFR Calculation 88.7 mL/min/1.73m2 [facility] (Non-) [facility] LABORATOR Y eGFR Calculation 107.5 mL/min/1.73m2 [facility] () [facility] Specimen Blood - VENOUS Narrative Performed At Association of Glomerular Filtration Rate (GFR) [facility] and Staging of Kidney Disease* [...] tests). Performing Organization Address City/State/Zipcode Phone Number [facility] CLIA: [id number] [place], [place] [id number] LABORATORY [address] CBC with Differential (05/29/2020 11:27 AM INSOLE CEMENTER) [facility] nature WBC 7.46 4.30 - 11.10 [facility] 10*3/L [facility] RBC 4.35 3.93 - 5.25 [facility] 10*6/L [facility] HGB 12.4 11.6 - 15.0 g/dL [facility] HCT 38.2 35.7 - 45.2 % [facility] MCV 87.8 80.6 - 95.5 fL [facility] MCH 28.5 25.9 - 32.8 pg [facility] MCHC 32.5 31.6 - 35.1 g/dL [facility] RDW-SD 45.6 39.0 - 49.9 fL [facility] RDW-CV 14.0 12.0 - 15.5 % [facility] PLT 391 (H) 166 - 358 [facility] 10*3/L HOSPITAL LAB[facility]ORY MPV 10.0 9.5 - 12.9 fL [facility] NRBC/100 WBC 0.0 0.0 - 10.0 /100 [facility] WBCs [facility] NRBC x10^3 <0.01 10*3/L [facility] GRAN MAT (NEUT) % 54.7 % [facility] IMM GRAN % 0.50 % [facility] LYMPH % 37.1 % [facility] MONO % 4.6 % [facility] EOS % 2.4 % [facility] BASO % 0.7 % [facility] GRAN MAT x10^3(ANC) 4.08 1.88 - 7.09 [facility] 10*3/uL [facility] IMM GRAN x10^3 0.04 0.00 - 0.06 [facility] 10*3/uL [facility] LYMPH x10^3 2.77 1.32 - 3.29 [facility] 10*3/uL [facility] MONO x10^3 0.34 0.33 - 0.92 [facility] 10*3/uL [facility] EOS x10^3 0.18 0.03 - 0.39 [facility] 10*3/uL [facility] BASO x10^3 0.05 0.01 - 0.07 [facility] 10*3/uL [facility] Specimen Blood - VENOUS Performing Organization Address City/State/Zipcode Phone Number [facility] CLIA: [id number] [place] [address] documented in this encounter Visit Diagnoses Diagnosis Bloody diarrhea - Primary Diarrhea COVID-19 virus infection Generalized abdominal pain Abdominal pain, generalized Nausea and vomiting, intractability of v omiting not specified, unspecified vomiting type Viral syndrome Unspecified viral infection, in conditio ns classified elsewhere and of unspecified site documented in this encounter Administered Medications Medication Order MAR Action Action Date Dose Rate Site acetaminophen (TYLENOL) tablet Given 05/29/2020 11:53 AM INSOLE CEMENTER 650 mg 650 mg 650 mg, Oral, ONCE, 1 dose, 05/29/20 at 1245, [place] gokpfuokxg-zumvgqzfrmjmq-lrte (ESGIC) Given 05/29/2020 11:53 AM INSOLE CEMENTER 1 tablet 50-325-40 mg tablet 1 tablet 1 tablet, Oral, ONCE, 1 dose, 05/29/20 at 1245, [place] famotidine (PEPCID (PF)) injection 20 mg Given 05/29/2020 11:31 AM INSOLE CEMENTER 20 mg 20 mg, Slow IV Push, ONCE, 1 dose, 05/29/20 at 1200, [place] FENTanyl PF (SUBLIMAZE (PF)) injection 25 Given 05/29/2020 1:08 PM INSOLE CEMENTER 25 mcg mcg 25 mcg, Slow IV Push, ONCE, 1 dose, 05/29/20 at 1330, STAT iohexol (OMNIPAQUE 350 BULK-150 mL) Given 05/29/2020 12:47 PM CS T 120 mL injection 120 mL 120 mL, Intravenous, ONCE, 1 dose, 05/29/20 at 1300, Routine maalox:diphenhydrAMINE:lidocaine 2 % viscous Given 11:53 AM INSOLE CEMENTER 15 mL 1:1:1 (FIRST-MOUTHWASH BLM) oral suspension 15 mL 15 mL, Oral, ONCE, 1 dose, 05/29/20 at 1245, Routine NaCl 0.9% (NS) bolus infusion New Bag 05/29/2020 11:29 AM INSOLE CEMENTER 1,000 mL 999 mL/hr 1,000 mL at 999 mL/hr, 1,000 mL, IV Infusion, ONCE, 1 dose, 05/29/20 at 1200, STAT ondansetron (ZOFRAN (PF)) injection 4 mg Given 05/29/2020 11:31 AM INSOLE CEMENTER 4 mg 4 mg, Slow IV Push, ONCE, 1 dose, 05/29/20 at 1200, [place] proMETHazine (PHENERGAN) 12.5 mg in NaCl Given 05/29/2020 12:27 PM INSOLE CEMENTER 12.5 mg 0.9% (NS) 50 mL piggyback 12.5 mg, IV Piggyback, ONCE, 1 dose, 05/29/20 at 1330, 50 mL documented in this encounter Additional Health Concerns Infection Onset Date Last Indicated Resolved Time COVID-19 Confirmed 05/23/2020 05/23/2020 documented as of this encounter Insurance Payer Benefit Plan / Subscriber ID Effective Phone Address T ype Group Dates SAMMY CHRISTIANSON [id number] 2019-Pres Alisson RYAN Medic aid HEALTHCARE - HEALTHCARE ent [id number] MANAGED MEDICAID [place], [place] documented as of this encounter"
[2020-06-02] MEDS ORDERED: ONDANSETRON 4 MG/2 ML VIAL ONE (13:57)
[2020-06-02] MEDS ORDERED: KETOROLAC 30 MG/ML INJ ONE (13:58)
[2020-06-02] MEDS ORDERED: DICYCLOMINE HCL 20 MG/2 ML AMP IM ONE (13:58)
[2020-06-02] MEDS ORDERED: NA CHLORIDE 0.9% 1,000 ML ONE (13:58)
[2020-06-02 14:21] LABS: Urine Blood 3+ (NEG); Urine Glucose NEGATIVE (NEG); Urine Protein 1+ (NEG); Urine Specific Gravity 1.025 (1.005-1.030)
[2020-06-02 15:06] LABS: Absolute Lymphocytes (CBC) 2.6 K/uL (0.7-4.9); Basophils % 0.4 % (0-1.3); Lymphocytes % 23.5 % (15.3-44.8); MPV 8.3 fL (7.6-11.3); RBC Red Blood Cell Count 4.88 M/uL (3.86-4.86)
[2020-06-02 15:08] LABS: ALT/SGPT 126 U/L (12-78); AST/SGOT 69 U/L (15-37); Albumin 4.4 g/dL (3.4-5.0); Alkaline Phosphatase 119 U/L (45-117); BUN Blood Urea Nitrogen 15 mg/dL (7-18); Bicarbonate 25 mmol/L (21-32); Bilirubin Direct < 0.1 mg/dL (0-0.2); Bilirubin Total 0.4 mg/dL (0.2-1.0); Creatine Phosphokinase 58 U/L (26-192); Glucose Level 89 mg/dL (74-106); Lipase 98 U/L (73-393); Potassium 3.7 mmol/L (3.5-5.1); Protein, Total 8.9 g/dL (6.4-8.2); Sodium Level 139 mmol/L (136-145)
[2020-06-02 15:09] LABS: Magnesium 2.1 mg/dL (1.8-2.4)
--- NOTE | 2020-06-02 15:34 | RAD REPORT ---
EXAM DESCRIPTION: CTAbdomen Pelvis W Contrast - 06/02/2020 3:24 pm CLINICAL HISTORY: Abdominal pain. Abd pain;Nausea / vomiting COMPARISON: Abdomen Pelvis W Contrast dated 02/17/2020 TECHNIQUE: Biphasic CT imaging of the abdomen and pelvis was performed with 100 ml non-ionic IV cont rast. All CT scans are performed using dose optimization technique as appropriate and may include automated exposure control or mA/KV adjustment according to patient size. FINDINGS: The lung bases are clear. The liver, spleen, pancreas, adrenal glands and left kidney are within normal limits. Punctate right renal calculus without hydronephrosis. No bowel obstruction, free air, free fluid or abscess. The appendix is normal. No evidence of signi ficant lymphadenopathy. No suspicious bony findings. IMPRESSION: No acute intra-abdominal or pelvic finding.
--- NOTE | 2020-06-02 16:15 | EDPHYS ---
Physician Documentation [facility] Name: Natanael Dyson Age: 25 yrs Sex: Female : 1995 Arrival Date: 06/02/2020 Time: 10:38 Bed 16 Private MD: ED Physician Barrie Ziegler HPI: 06/02 13:35 This 25 yrs old Female presents to ER via Ambulatory with complaints of Covid cp + Body Ache. 13:35 The patient presents to the emergency department with nausea, that is moderate, cp vomiting, that is continuous, abdominal pain, of the abdomen diffusely. 13:35 Onset: The symptoms/episode began/occurred 2 day(s) ago. cp 13:35 Associated signs and symptoms: Pertinent positives: abdominal pain, diarrhea, fever, cp body aches, Pertinent negatives: constipation. 13:35 Patient reports testing positive for COVID-19. 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 - Social history:: Smoking status: Patient denies any tobacco usage or history of. ROS: 13:40 Constitutional: Positive for body aches, Negative for fever. cp 13:40 Eyes: Negative for injury, pain, redness, and discharge. cp 13:40 ENT: Negative for ear pain, sore throat, difficulty swallowing, difficulty handling secretions. 13:40 Neck: Negative for stiffness. 13:40 Cardiovascular: Negative for chest pain. 13:40 Respiratory: Positive for cough, Negative for shortness of breath, wheezing. 13:40 Abdomen/GI: Positive for abdominal pain, nausea and vomiting, diarrhea, Negative for constipation, hematemesis. 13:40 Neuro: Negative for altered mental status, headache, weakness. 13:40 All other systems are negative. Exam: 13:45 Constitutional: The patient appears in no acute distress, alert, awake, non-toxic, well cp developed, well nourished. 13:45 Head/Face: Normocephalic, atraumatic. cp 13:45 Eyes: Periorbital structures: appear normal, Conjunctiva: normal, no exudate, no injection, Sclera: no appreciated abnormality, Lids and lashes: appear normal, bilaterally. 13:45 ENT: External ear(s): are unremarkable, Nose: is normal, Mouth: Lips: moist, Oral mucosa: moist, Posterior pharynx: Airway: no evidence of obstruction, patent. 13:45 Neck: ROM/movement: is normal, is supple, without pain, no range of motions limitations. 13:45 Chest/axilla: Inspection: normal, Palpation: is normal, no crepitus, no tenderness. 13:45 Cardiovascular: Rate: normal, Rhythm: regular. 13:45 Respiratory: the patient does not display signs of respiratory distress, Respirations: normal, no use of accessory muscles, no retractions, labored breathing, is not present, Breath sounds: are clear throughout, no decreased breath sounds. 13:45 Abdomen/GI: Inspection: abdomen appears normal, Bowel sounds: active, all quadrants, Palpation: soft, in all quadrants, moderate abdominal tenderness, in the right lower quadrant and left lower quadrant, rebound tenderness, is not appreciated, voluntary guarding, is elicited in the right lower quadrant and left lower quadrant. 13:45 Back: CVA tenderness, is absent. Vital Signs: 11:48 BP 136 / 81; Pulse 90; Resp 17; Temp 98.2; Pulse Ox 98% ; Height 5 ft. 2 in. (157.48 ll1 cm); Pain 10/10; 12:59 BP 123 / 85; Pulse 88; Resp 16; Pulse Ox 100% on R/A; sv 14:43 BP 123 / 85; Pulse 94; Resp 16; Pulse Ox 100% on R/A; sv 15:00 Pain 3/10; sv 15:24 BP 111 / 74; Pulse 82; Resp 16; Pulse Ox 99% ; sv 16:07 BP 124 / 92; Pulse 88; Resp 16; Pulse Ox 100% on R/A; sv 16:50 Pain 2/10; sv MDM: 13:21 Patient medically screened. cp 14:00 Differential diagnosis: gastritis, cholecystitis, pancreatitis, appendicitis, viral cp gastroenteritis, gastroenteritis. 16:13 Data reviewed: vital signs, nurses notes, lab test result(s), radiologic studies, CT cp scan. 16:13 Counseling: I had a detailed discussion with the patient and/or guardian regarding: the cp historical points, exam findings, and any diagnostic results supporting the discharge/admit diagnosis, lab results, radiology results, to return to the emergency department if symptoms worsen or persist or if there are any questions or concerns that arise at home. Response to treatment: the patient's symptoms have markedly improved after treatment, patient is well hydrated. VSS. Pain and nausea improved. Vomiting resolved. Will discharge to home for continued monitoring. 06/02 13:33 Order name: Basic Metabolic Panel 06/02 13:33 Order name: CBC with Diff; Complete Time: 15:22 06/02 15:22 Interpretation: Normal except: WBC 11.1; RBC 4.88. 06/02 13:33 Order name: Hepatic Function; Complete Time: 15:22 06/02 15:22 Interpretation: Normal except: AST 69; ALT 126; ALK 119; TP 8.9; GLOB 4.5; A/G 1.0. 06/02 13:33 Order name: Lipase; Complete Time: 15:22 06/02 13:33 Order name: CK; Complete Time: 15:22 06/02 13:33 Order name: Magnesium; Complete Time: 15:22 06/02 13:33 Order name: Basic Metabolic Panel; Complete Time: 15:22 EDMS 06/02 15:22 Interpretation: Normal except: GFR 76; CA 9.7. 06/02 14:16 Order name: Urine Dipstick--Ancillary (enter results); Complete Time: 14:23 06/02 14:23 Interpretation: Normal except: UBLD 3+; UPROT 1+. 06/02 14:16 Order name: Urine --Ancillary (enter results); Complete Time: 14:23 06/02 14:35 Interpretation: Reviewed. 06/02 14:36 Order name: CT Abd/Pelvis - IV Contrast Only; Complete Time: 15:51 06/02 13:33 Order name: IV Saline Lock; Complete Time: 14:36 06/02 13:33 Order name: Labs collected and sent; Complete Time: 14:36 06/02 13:33 Order name: Urine Dipstick-Ancillary (obtain specimen); Complete Time: 14:36 06/02 13:33 Order name: Urine Test (obtain specimen); Complete Time: 14:36 06/02 15:58 Order name: PO challenge; Complete Time: 16:05 cp Administered Medications: 14:26 Drug: NS 0.9% 1000 ml Route: IV; Rate: 1 bolus; Site: left antecubital; sv 15:30 Follow up: Response: No adverse reaction; IV Status: Completed infusion; IV Intake: sv 1000ml 14:26 Drug: Zofran (Ondansetron) 4 mg Route: IVP; Site: left antecubital; sv 15:42 Follow up: Response: No adverse reaction sv 14:35 Drug: Bentyl 20 mg Route: IM; Site: left gluteus; sv 15:42 Follow up: Response: No adverse reaction sv 14:35 Drug: morphine 2 mg {Note: rass1.} Route: IVP; Site: left antecubital; sv 15:00 Follow up: Pain 3/10 Adult; Response: No adverse reaction; Marked relief of symptoms; sv Pain is decreased; RASS: Alert and Calm (0) 14:37 Not Given (Patient Refused): TORadol - Ketorolac 15 mg IVP once; if test sv negative 14:58 Drug: Phenergan 25 mg {Note: placed in IVF bag per Justin WELLS} Route: IVP; Site: left sv antecubital; 15:42 Follow up: Response: No adverse reaction sv 16:04 Drug: morphine 2 mg {Note: rass1.} Route: IVP; Site: left antecubital; sv 16:50 Follow up: Pain 2/10 Adult; Response: No adverse reaction; No change in condition; Pain sv is decreased; RASS: Alert and Calm (0) Disposition: 06/03 07:29 Co-signature as Attending Physician, Barrie Ziegler MD I agree with the assessment and tw4 plan of care. Disposition: 06/02/20 16:14 Discharged to Home. Impression: Coronavirus infection, unspecified, Nausea and vomiting, Unspecified abdominal pain. - Condition is Stable. - Discharge Instructions: Abdominal Pain, Adult, Nausea and Vomiting, Adult, COVID-19. - Prescriptions for ivermectin 3 mg Oral tablet - take 4 tablet by ORAL route every other day x2 doses, take 4 tablets every other day; 8 tablet. Bentyl 20 mg Oral Tablet - take 1 tablet by ORAL route every 6 hours As needed; 20 tablet. Phenergan 25 mg Rectal Suppository - insert 1 suppository by RECTAL route every 6 hours As needed; 12 suppository. promethazine 25 mg Oral Tablet - take 1 tablet by ORAL route every 6 hours As needed; 20 tablet. - Medication Reconciliation Form, Thank You Letter, Antibiotic Education, Prescription Opioid Use form. - Follow up: Private Physician; When: 1 - 2 days; Reason: Recheck today's complaints. - Problem is new. - Symptoms have improved. Signatures: Dispatcher [employer] EDAnusha Polanco, RN RN sv Justin Curiel PA PA cp Barrie Ziegler MD MD tw4 Brandi Cotter RN RN ll1 Corrections: (The following items were deleted from the chart) 06/02 15:22 15:22 Normal except: GFR 76. cp cp 15:23 15:22 Normal except: AST 69; ALT 126; ALK 119; TP 8.9; GLOB 4.5. cp cp 16:50 16:14 06/02/2020 16:14 Discharged to Home. Impression: Coronavirus infection, sv unspecified; Nausea and vomiting; Unspecified abdominal pain. Condition is Stable. Forms are Medication Reconciliation Form, Thank You Letter, Antibiotic Education, Prescription Opioid Use. Follow up: Private Physician; When: 1 - 2 days; Reason: Recheck today's complaints. Problem is new. Symptoms have improved. cp 06/03 13:38 06/02 13:35 Associated signs and symptoms: Pertinent positives: abdominal pain, fever, cp body aches, Pertinent negatives: constipation, diarrhea, cp
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
[2020-06-02 16:57] VITALS: TEMP 98.2
[2020-06-02 17:02] VITALS: BP 124/92; O2SAT 100
== END 2020-06-02 16:50 | disposition home or self-care (01) ==
LOC: ER 10:36
DX: U07.1 COVID-19 (principal); R10.9 Unspecified abdominal pain; Z88.8 Allergy status to other drugs, medicaments and biological substances; Z91.040 Latex allergy status; Z91.048 Other nonmedicinal substance allergy status
CPT/HCPCS: 96361; 85025; 80048; 36415; 83735; 82550; 81025; 80076; 81003; 83690; 74177; 96375; 96372; 96374; 99284; Q9967; J0500; J7030; J2405

== ENCOUNTER 2020-06-10 08:36 | Emergency (ER) | payer MEDICAID ==
--- OUTSIDE RECORDS SUMMARY | 2020-06-10 08:38 | XMS REPORT | Continuity of Care Document ---
:1995 Author Organization [facility] t Address [address] [place] [address] [address] [place] [address] Care Team Providers Name Role Phone Joey Armstrong MD Attending Clinician Heather HENDRICKS Attending Clinician Ana DESKTOP SPECIALIST, R Attending Clinician Leanne DESKTOP SPECIALIST, J Attending Clinician Paulette PEÑAP, F Attending Clinician Clinic, Neurology Continuity Attending Clinician [...] Date/Time Type Type Clinicians Facility Department ID 2020-06-09 2020-06-09 [facility] [id number] 09:49:31 23:59:00 Encounter Darrion Cook [facility] [id number] [place] [id number] [place] [phone] [facility] 804 (CLC) 2020-06-09 2020-06-09 [facility] Gayathri Romero [facility] [id number] 09:49:11 23:59:00 Encounter [facility] [id number] Clear [id number] [place] [id number] [facility] 803 (CLC) 2020-05-29 2020-05-29 Emergency [facility] [id number] 10:50:00 14:19:00 Larry Yanes [place] [id number] [place] [id number] [place] [id number] [id number] 2020-05-28 2020-05-28 [facility] [id number] 08:20:24 09:31:12 [facility] [id number] [place] [id number] [place] [phone] [place]al [address] 2020-05-25 2020-05-25 [employer] [facility] [id number] 00:00:00 00:00:00 Darrion Cook [place] [id number] [place] [id number] Professio [id number] nal 092 Building 2020-05-24 2020-05-24 [facility] [id number] 08:50:11 23:59:00 Encounter Health [id number] Clear [id number] [place] [id number] [facility] 803 ([facility]) 2020-05-23 2020-05-23 Emergency [facility] [id number] 11:25:00 13:24:00 Johnathan Richards [id number] [place] [id number] [place] [phone] [id number] 2020-05-20 2020-05-20 Letter Clinic, [facility] [id number] 00:00:00 00:00:00 (Out) [facility]rology [facility] [id number] Continuity CLINICS [id number] 2020-05-19 2020-05-19 Telemedici Lopez [place] [facility] [id number] 07:46:35 08:16:35 ne Visit [facility] [id number] CLINICS [id number] 2020-05-17 2020-05-17 Office Patti [facility] [id number] 12:37:40 13:59:34 Visit Darrion [place] [id number] [place] [id number] [id number] [facility] 2020-04-18 2020-04-18 Telemedici Lopez Hitchcock [facility] [id number] 07:51:17 08:21:17 ne Visit [facility] [id number] [facility] [id number] Results This patient has no known results.
--- OUTSIDE RECORDS SUMMARY | 2020-06-10 08:52 | XMS REPORT | Summary of Care ---
:1995 Author Organization [facility] Address [address] [place] [id number] Care Team Providers Name Role Phone Jessica Baker Insurance Hmo Kassandra Dennis MD Primary Care Provider Reason for Referral MRI/CAT Scan (Routine) Status Reason Specialty Diagnoses / Referred By Referred To Procedures Contact Contact Closed Diagnostic Diagnoses Other headache syndrome Family history of cerebral aneurysm Darrion [facility] Procedures MR ANGIOGRAM HEAD WO DENNISE Cook MD [address] [place] [phone] Reason for Visit MRI/CAT Scan (Routine) Status Reason Specialty Diagnoses / Referred By Referred To Procedures Contact Contact Closed Diagnostic Diagnoses Other headache syndrome Family history of cerebral aneurysm D[facility]ion [facility] Procedures MR ANGIOGRAM HEAD WO DENNISE Cook MD [address] [place] [phone] Encounter Details Date Type Department Care Team Description 06/09/2020 Hospital Encounter [facility] Diagnostic Charan Armstrong Arrived Imaging[facility] [address] [phone] [place], [place] [phone] Allergies Active Allergy Reactions Severity Noted Date Comments Prochlorperazine Anxiety 05/29/2020 Latex Rash 04/13/2020 Metoclopramide Hcl Anxiety 07/12/2019 Patient s ays she gets figity, angry and mean documented as of this encounter (statuses as of 06/10/2020) Medications Medication Sig Dispensed Refills Start Date [...] by 0 04/13/2020 Active capsule mouth daily. proMETHazine 25 mg Take 1 tablet by 15 tablet 0 05/29/2020 Active tabletIndications: mouth every 6 COVID-19 virus (six) hours as infection, Generalized needed for abdominal pain, Nausea Nausea and and vomiting, Vomiting (N/V). intractability of vomiting not specified, unspecified vomiting type, Viral syndrome documented as of this encounter (statuses as of 06/10/2020) Active Problems Problem Noted Date Visual changes 05/07/2020 Headache 04/30/2020 Sinus tachycardia 04/13/2020 Abdominal pain 04/13/2020 Anxiety disorder, unspecified type 01/05/2020 Insomnia, unspecified type 01/05/2020 Other depression 08/13/2019 documented as of this encounter (statuses as of 06/10/2020) Resolved Problems Problem Noted Date Resolved Date [...] as of this encounter (statuses as of 06/10/2020) Immunizations Name Administration Dates Next Due Influenza [...] in contact with Yes 05/29/2020 10:47 AM BEHAVIOR THERAPIST someone who was confirmed or 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 documented as of this encounter Last Filed Vital Signs Not on filedocumented in this encounter Plan of Treatment Date Type Specialty Care Team Description 06/16/2020 Office Visit Cardiology Rad Potts MD [address] [place], [place] [phone] 08/11/2020 Office Visit Obstetrics & Gynecology Young Quiñonez MD [address] [place], [place] [address] Health Maintenance Due Date Last Done Comments HPV VACCINES (1 - 2-dose series) 2006 SARS-CoV-2 (COVID-19) Vaccine (1 of 2) 2011 PAP SMEAR 02/19/2016 Depression Screening 09/01/2020 09/02/2019, 09/02/2019 DTaP,Tdap,and Td Vaccines (2 - Td) 05/21/2029 05/21/2019 INFLUENZA VACCINE Completed 05/19/2020, 02/06/2019 PNEUMOCOCCAL 0-64 YEARS COMBINED SERIES Discontinued documented as of this encounter Procedures Procedure Name Priority Date/Time Associated Diagnosis Comme nts MR ANGIOGRAM HEAD Routine 06/09/2020 2:44 PM Other headache R esults for this WO CONTRAST BEHAVIOR THERAPIST syndrome procedure are in Family history of the result s cerebral aneurysm section. documented in this encounter Results MR ANGIOGRAM HEAD WO CONTRAST (06/09/2020 2:44 PM BEHAVIOR THERAPIST) Specimen Impressions Performed At PACS/VR/DOSE Unremarkable MRA of the head. Specifical ly, no evidence of intracranial aneurysm. Preliminary Report Dictated by Resident: Bipin Stuart I, Ronak Villafuerte MD., have reviewed this study and agree with the above report. Narrative Performed At EXAMINATION: MR ANGIOGRAM HEAD WO CONTRA ST PACS/VR/DOSE HISTORY: 25 years-old; Female; Headache, acute, normal neuro exam Strong family HX of cerebral aneurysm TECHNIQUE: Brain MRA was performed using 3D time-of-fl ight technique with multi-planar MIP and 3D reconstruction. COMPARISON: MR brain with and without co ntrast 05/01/2020. FINDINGS: The vertebral arteries are codominant an d patent without significant stenosis. The left PICA origin is visualized. The righ t PICA origin is not seen. The basilar artery is normal in ca liber. The superior cerebellar arteries are patent. The posterior cereb ral arteries are patent without stenosis. A small right posterior commuting artery is seen. No sizable left P-comm is identified. The petrous, cavernous and supraclinoid ICA is within normal limits. The anterior and middle cerebral arteries are patent. An a nterior communicating artery is visualized. No high-grade stenosis or aneurysm is vi sualized. Procedure Note [facility], Radiant Results Inft User - 2020 3:34 PM BEHAVIOR THERAPIST EXAMINATION: MR ANGIOGRAM HEAD WO CONTRAST HISTORY: 25 years-old; Female; Headache, acute, normal neuro exam Strong family HX of cerebral aneurysm TECHNIQUE: Brain MRA was performed using 3D [id number] technique with multi-planar MIP and 3D reconstruction. COMPARISON: MR brain with and without co ntrast 05/01/2020. FINDINGS: The vertebral arteries are codominant an d patent without significant stenosis. The left PICA origin is visual ized. The right PICA origin is not seen. The basilar artery is normal in ca liber. The superior cerebellar arteries are patent. The posterior cereb ral arteries are patent without stenosis. A small right posterior commut ing artery is seen. No sizable left P-comm is identified. The petrous, cavernous and supraclinoid ICA is within normal limits. The anterior and middle cerebral arteries ar e patent. An anterior communicating artery is visualized. No high-grade stenosis or aneurysm is vi sualized. IMPRESSION Unremarkable MRA of the head. Specifical ly, no evidence of intracranial aneurysm. Preliminary Report Dictated by Resident: Ronak Littlejohn MD., have reviewed t his study and agree with the above report. Performing Organization Address City/State/Zipcode Phone Number PACS/VR/DOSE documented in this encounter Visit Diagnoses Diagnosis Other headache syndrome Family history of cerebral aneurysm Family history of other cardiovascular d iseases documented in this encounter Additional Health Concerns Infection Onset Date Last Indicated Resolved Time COVID-19 Confirmed 05/23/2020 05/23/2020 documented as of this encounter Insurance Payer Benefit Plan / Subscriber ID Effective Phone Address [facility] Group Dates SAMMY CHRISTIANSON [id number] 2019-Pres [address] Medic aid HEALTHCARE [place] [id number] MANAGED MEDICAID [place], [place]ID [place] documented as of this encounter
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
[2020-06-10 10:13] LABS: Urine Blood NEGATIVE (NEG); Urine Glucose NEGATIVE (NEG); Urine Protein NEGATIVE (NEG); Urine Specific Gravity 1.025 (1.005-1.030); Urine pH 6.5 (5.0-7.0)
[2020-06-10 10:23] LABS: Urine Bacteria 20-50 /HPF (<20); Urine RBC NONE SEEN /HPF (NONE SEEN)
[2020-06-10 11:12] LABS: Albumin 3.9 g/dL (3.4-5.0); Bilirubin Direct 0.1 mg/dL (0-0.2); Bilirubin Total 0.7 mg/dL (0.2-1.0); Potassium 3.7 mmol/L (3.5-5.1); Protein, Total 8.5 g/dL (6.4-8.2)
--- NOTE | 2020-06-10 11:40 | EDPHYS ---
Physician Documentation [facility] Name: Natanael Dyson Age: 25 yrs Sex: Female : 1995 Arrival Date: 06/10/2020 Time: 08:39 Bed 18 Private MD: ED Physician Miquel Rios HPI: 06/10 09:50 This 25 yrs old Female presents to ER via Ambulatory with complaints of cp Abdominal Pain, Headache. 09:50 The patient complains of pain to the top of head and forehead. The patient describes cp the headache as aching. Onset: The symptoms/episode began/occurred gradually, and became worse today. The patient presents with abdominal pain that is diffuse. Associated signs and symptoms: Pertinent positives: nausea, vomiting, Pertinent negatives: altered mental status, neck stiffness, paresthesias, sinus congestion, sinus tenderness. Severity of symptoms: in the emergency department the pain a " 10" out of "10". Headache History: The patient has had previous headaches and this one is similar to previous episodes. WOOD INSPECTOR: 09:28 LMP 05/23/2020 em Historical: - Allergies: 09:28 Latex, Natural Rubber; em 09:28 Reglan; em 09:28 Compazine; em - PMHx: :28 Asthma; Kidney stones; Migraines; Tachycardia; em - PSHx: : None; em - Immunization history:: Adult Immunizations up to date. - Social history:: Smoking status: Patient denies any tobacco usage or history of. ROS: 10:00 Constitutional: Negative for body aches, chills, fever, poor PO intake. cp 10:00 Eyes: Negative for injury, pain, redness, and discharge. cp 10:00 ENT: Negative for ear pain, sore throat, difficulty swallowing, difficulty handling secretions. 10:00 Neck: Negative for pain with movement, pain at rest, stiffness. 10:00 Cardiovascular: Negative for chest pain, edema, palpitations. 10:00 Respiratory: Negative for cough, shortness of breath, wheezing. 10:00 Abdomen/GI: Positive for abdominal pain, nausea, Negative for vomiting, diarrhea, constipation, anorexia. 10:00 Skin: Negative for rash. 10:00 Neuro: Positive for headache, Negative for altered mental status, numbness, weakness. 10:00 All other systems are negative. Exam: 10:05 Constitutional: The patient appears in no acute distress, alert, awake, non-toxic, well cp developed, well nourished, uncomfortable. 10:05 Head/Face: Normocephalic, atraumatic. cp 10:05 Eyes: Periorbital structures: appear normal, Conjunctiva: normal, no exudate, no injection, Sclera: no appreciated abnormality, Lids and lashes: appear normal, bilaterally. 10:05 ENT: External ear(s): are unremarkable, Ear canal(s): are normal, clear, TM's: dullness, bilaterally, Nose: is normal, Mouth: Lips: moist, Oral mucosa: moist, Posterior pharynx: Airway: no evidence of obstruction, patent. 10:05 Neck: ROM/movement: is normal, is supple, without pain, no range of motions limitations, no nuchal rigidity. 10:05 Chest/axilla: Inspection: normal, Palpation: is normal, no crepitus, no tenderness. 10:05 Cardiovascular: Rate: tachycardic, Rhythm: regular. 10:05 Respiratory: the patient does not display signs of respiratory distress, Respirations: normal, no use of accessory muscles, no retractions, labored breathing, is not present, Breath sounds: are clear throughout, no decreased breath sounds, no stridor, no wheezing. 10:05 Abdomen/GI: Inspection: abdomen appears normal, Bowel sounds: active, all quadrants, Palpation: soft, in all quadrants, mild abdominal tenderness, in all quadrants, voluntary guarding, is not appreciated, involuntary guarding, is not appreciated. 10:05 Back: CVA tenderness, is absent. 10:05 Neuro: Orientation: to person, place \\T\\ time. Mentation: is normal, Cerebellar function: is grossly normal, Motor: moves all fours, strength is normal, Sensation: is normal. Vital Signs: 09:25 BP 123 / 74; Pulse 104; Resp 18; Temp 97.9(O); Pulse Ox 100% on R/A; Weight 63.5 kg; em Height 5 ft. 2 in. (157.48 cm); Pain 10/10; 10:34 BP 116 / 72; Pulse 91; Resp 18; Pulse Ox 99% on R/A; em 11:30 BP 112 / 68; Pulse 89; Resp 18; Pulse Ox 98% on R/A; em 09:25 Body Mass Index 25.61 (63.50 kg, 157.48 cm) em MDM: 09:29 Patient medically screened. cp 10:00 Differential diagnosis: intracerebral hemorrhage, meningitis, meningoencephalitis, cp migraine, sinusitis, subarachnoid bleed, tension headache, non-specific abd pain. 11:37 Data reviewed: vital signs, nurses notes, lab test result(s). cp 11:37 Counseling: I had a detailed discussion with the patient and/or guardian regarding: the cp historical points, exam findings, and any diagnostic results supporting the discharge/admit diagnosis, lab results, the need for outpatient follow up, a neurologist, to return to the emergency department if symptoms worsen or persist or if there are any questions or concerns that arise at home. Response to treatment: the patient's symptoms have markedly improved after treatment, and as a result, I will discharge patient. 06/10 09:46 Order name: Basic Metabolic Panel 06/10 09:46 Order name: Hepatic Function 06/10 09:46 Order name: Lipase 06/10 09:46 Order name: Basic Metabolic Panel; Complete Time: 11:20 EDMS 06/10 11:20 Interpretation: Normal except: CL 111; GFR 73. 06/10 09:46 Order name: Liver (Hepatic) Function; Complete Time: 11:20 EDMS 06/10 09:46 Order name: Lipase; Complete Time: 11:20 EDMS 06/10 09:48 Order name: COVID-19 : Document "Date of Symptom Onset" if Symptomatic. 06/10 09:57 Order name: Urine Microscopic Only 06/10 09:58 Order name: Urine Microscopic Only; Complete Time: 11:20 EDMS 06/10 10:00 Order name: Urine Dipstick--Ancillary (enter results) eb 06/10 10:00 Order name: Urine --Ancillary (enter results) 06/10 09:46 Order name: IV Saline Lock; Complete Time: 10:25 06/10 09:46 Order name: Labs collected and sent; Complete Time: 10:25 06/10 09:46 Order name: Urine Dipstick-Ancillary (obtain specimen); Complete Time: 10:26 06/10 09:46 Order name: Urine Test (obtain specimen); Complete Time: 10:26 cp 06/10 11:37 Order name: PO challenge; Complete Time: 11:50 cp Administered Medications: 10:15 Drug: Zofran (Ondansetron) 4 mg Route: IVP; Site: right antecubital; em 11:31 Follow up: Response: No adverse reaction; Marked relief of symptoms em 10:15 Drug: NS 0.9% 1000 ml Route: IV; Rate: 1 bolus; Site: right wrist; em 11:31 Follow up: IV Status: Completed infusion; IV Intake: 1000ml em 10:17 Drug: TORadol - Ketorolac 15 mg Route: IVP; Site: right wrist; em 11:31 Follow up: Response: No adverse reaction; Marked relief of symptoms; Pain is decreased em 10:19 Drug: Benadryl 25 mg Route: IVP; Site: right wrist; em 11:30 Follow up: Response: No adverse reaction; Marked relief of symptoms em 10:23 Drug: Demerol - Meperidine 12.5 mg Route: IVP; Site: right wrist; em 11:30 Follow up: Response: No adverse reaction; Marked relief of symptoms; Pain is decreased; em RASS: Alert and Calm (0) 10:31 Drug: Dexamethasone 10 mg Route: IVP; Site: right wrist; em 11:31 Follow up: Response: No adverse reaction; Marked relief of symptoms; Pain is decreased em 11:50 Drug: Rocephin 1 grams Route: IV; Rate: calculated rate; Site: right wrist; em 11:59 Follow up: Response: No adverse reaction; IV Status: Completed infusion; IV Intake: 10mlem 11:50 Drug: Demerol - Meperidine 12.5 mg Route: IVP; Site: right wrist; em 11:59 Follow up: Response: No adverse reaction em Disposition: 06/10/20 11:38 Discharged to Home. Impression: Headache, Urinary tract infection, site not specified. - Condition is Stable. - Discharge Instructions: Migraine Headache, Urinary Tract Infection, Adult. - Prescriptions for Fiorinal 50- 325-40 mg Oral Capsule - take 1 capsule by ORAL route every 4 hours As needed - not to exceed 6 capsules per day; 20 capsule. Zofran 4 mg Oral Tablet - take 1 tablet by ORAL route every 12 hours As needed; 20 tablet. Bactrim DS 800- 160 mg Oral Tablet - take 1 tablet by ORAL route every 12 hours for 7 days; 14 tablet. - Medication Reconciliation Form, Thank You Letter, Antibiotic Education, Prescription Opioid Use form. - Follow up: Isaiah Centeno MD; When: 1 - 2 days; Reason: Recheck today's complaints. - Problem is new. - Symptoms have improved. Addendum: 06/12/2020 19:58 Co-signature as Attending Physician, Miquel Rios MD I agree with the assessment and k dr plan of care. Signatures: Dispatcher [employer] [facility] Miquel Rios MD MD [facility] Igor Oliver RN RN em Justin Curiel PA PA cp Corrections: (The following items were deleted from the chart) 06/10 11:29 09:49 CORONAVIRUS ordered. [facility] EDMT 11:44 09:46 CBC+H.LAB.BRZ ordered. [facility] EDMT 12:00 11:38 06/10/2020 11:38 Discharged to Home. Impression: Headache; Urinary tract em infection, site not specified. Condition is Stable. Forms are Medication Reconciliation Form, Thank You Letter, Antibiotic Education, Prescription Opioid Use. Follow up: Isaiah Centeno; When: 1 - 2 days; Reason: Recheck today's complaints. Problem is new. Symptoms have improved. cp
--- NOTE | 2020-06-10 11:40 | ER ---
Nurse's Notes [facility] Name: Natanael Dyson Age: 25 yrs Sex: Female : 1995 Arrival Date: 06/10/2020 Time: 08:39 Bed 18 Private MD: Diagnosis: Headache;Urinary tract infection, site not specified Presentation: 06/10 08:49 Acuity: THIERNO 3 ss 09:25 Chief complaint: Patient states: reports being covid pos. and still has a headache, em also reports lower abd pain, denies N/V, SOB or fever. Coronavirus screen: headache, Client presents with at least one sign or symptom that may indicate coronavirus-19. Standard/surgical mask placed on the client. Provider contacted for isolation considerations. Client reports previous positive COVID test result. Ebola Screen: Patient negative for fever greater than or equal to 101.5 degrees Fahrenheit, and additional compatible Ebola Virus Disease symptoms Patient denies exposure to infectious person. Patient denies travel to an Ebola-affected area in the 21 days before illness onset. No symptoms or risks identified at this time. Initial Sepsis Screen: Does the patient meet any 2 criteria? HR > 90 bpm. No. Patient's initial sepsis screen is negative. Does the patient have a suspected source of infection? No. Patient's initial sepsis screen is negative. Risk Assessment: Do you want to hurt yourself or someone else? Patient reports no desire to harm self or others. Onset of symptoms was June 10, 2020. 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 - Social history:: Smoking status: Patient denies any tobacco usage or history of. Screenin: Abuse screen: Denies threats or abuse. Nutritional screening: No deficits noted. em Tuberculosis screening: No symptoms or risk factors identified. Fall Risk None identified. Assessment: 09:24 General: Appears in no apparent distress. uncomfortable, Behavior is cooperative, em crying, Denies fever. Pain: Complains of pain in head and abdomen Pain currently is 10 out of 10 on a pain scale. Neuro: Level of Consciousness is awake, alert, obeys commands, Oriented to person, place, time, situation, Appropriate for age Reports headache. Cardiovascular: Capillary refill < 3 seconds Patient's skin is warm and dry. Respiratory: Airway is patent Respiratory effort is even, unlabored, Respiratory pattern is regular, symmetrical, Denies shortness of breath at rest. GI: Abdomen is flat, Bowel sounds present X 4 quads. Abd is soft and non tender X 4 quads. Reports lower abdominal pain, nausea. : Denies burning with urination. Derm: Skin is intact, is healthy with good turgor, Skin is pink, warm \T\ dry. Musculoskeletal: Capillary refill < 3 seconds, Range of motion: intact in all extremities. 10:34 Reassessment: Patient appears in no apparent distress at this time. lab at bedside. em 11:11 Reassessment: Patient appears in no apparent distress at this time. Patient and/or em family updated on plan of care and expected duration. Pain level reassessed. Patient is alert, oriented x 3, equal unlabored respirations, skin warm/dry/pink. 11:51 Reassessment: gave water for PO challenge, tolerated well. em Vital Signs: 09:25 BP 123 / 74; Pulse 104; Resp 18; Temp 97.9(O); Pulse Ox 100% on R/A; Weight 63.5 kg; em Height 5 ft. 2 in. (157.48 cm); Pain 10/10; 10:34 BP 116 / 72; Pulse 91; Resp 18; Pulse Ox 99% on R/A; em 11:30 BP 112 / 68; Pulse 89; Resp 18; Pulse Ox 98% on R/A; em 09:25 Body Mass Index 25.61 (63.50 kg, 157.48 cm) em ED Course: 08:39 Patient arrived in ED. mr 08:49 Triage completed. ss 09:21 Igor Oliver, RN is Primary Nurse. em 09:23 Justin Curiel PA is PHCP. cp 09:23 Miquel Rios MD is Attending Physician. cp 09:25 Patient has correct armband on for positive identification. Adult w/ patient. em 09:28 Arm band placed on. em 10:05 Urine Microscopic Only Sent. dh3 10:15 Inserted saline lock: 24 gauge in right wrist, using aseptic technique. Blood collected.em 11:38 Isaiah Centeno MD is Referral Physician. cp 11:59 No provider procedures requiring assistance completed. IV discontinued, intact, em bleeding controlled, No redness/swelling at site. Pressure dressing applied. Administered Medications: 10:15 Drug: Zofran (Ondansetron) 4 mg Route: IVP; Site: right antecubital; em 11:31 Follow up: Response: No adverse reaction; Marked relief of symptoms em 10:15 Drug: NS 0.9% 1000 ml Route: IV; Rate: 1 bolus; Site: right wrist; em 11:31 Follow up: IV Status: Completed infusion; IV Intake: 1000ml em 10:17 Drug: TORadol - Ketorolac 15 mg Route: IVP; Site: right wrist; em 11:31 Follow up: Response: No adverse reaction; Marked relief of symptoms; Pain is decreased em 10:19 Drug: Benadryl 25 mg Route: IVP; Site: right wrist; em 11:30 Follow up: Response: No adverse reaction; Marked relief of symptoms em 10:23 Drug: Demerol - Meperidine 12.5 mg Route: IVP; Site: right wrist; em 11:30 Follow up: Response: No adverse reaction; Marked relief of symptoms; Pain is decreased; em RASS: Alert and Calm (0) 10:31 Drug: Dexamethasone 10 mg Route: IVP; Site: right wrist; em 11:31 Follow up: Response: No adverse reaction; Marked relief of symptoms; Pain is decreased em 11:50 Drug: Rocephin 1 grams Route: IV; Rate: calculated rate; Site: right wrist; em 11:59 Follow up: Response: No adverse reaction; IV Status: Completed infusion; IV Intake: 10mlem 11:50 Drug: Demerol - Meperidine 12.5 mg Route: IVP; Site: right wrist; em 11:59 Follow up: Response: No adverse reaction em Intake: 11:31 IV: 1000ml; Total: 1000ml. em 11:59 IV: 10ml; Total: 1010ml. em Outcome: 11:38 Discharge ordered by . cp 11:59 Discharged to home ambulatory. em 11:59 Condition: stable 11:59 Discharge instructions given to patient, Instructed on discharge instructions, follow up and referral plans. Demonstrated understanding of instructions, follow-up care. 12:00 Patient left the ED. em Signatures: Kymberly Murry Edgar, RN RN Violeta Seo RN RN ss Justin Curiel PA PA cp Herrera, Deanna 3 Corrections: (The following items were deleted from the chart) 11:30 11:30 Response: No adverse reaction em em
[2020-06-10 12:05] VITALS: TEMP 97.9
[2020-06-10 12:07] VITALS: BP 112/68; O2SAT 98
== END 2020-06-10 12:00 | disposition home or self-care (01) ==
LOC: ER 08:36
DX: N39.0 Urinary tract infection, site not specified (principal); R51.9 Headache, unspecified; Z20.822 Contact with and (suspected) exposure to COVID-19
CPT/HCPCS: 80048; 36415; 81025; 80076; 83690; 99283; U0003; 81003; 81015

== ENCOUNTER 2020-06-16 15:16 | Emergency (ER) | payer MEDICAID ==
--- OUTSIDE RECORDS SUMMARY | 2020-06-16 15:19 | XMS REPORT | Continuity of Care Document ---
:1995 Author Organization [facility] t Address [address] [place] [address] Dr. Ferguson [address] [place] [address] Care Team Providers Name Role Phone Delroy FELIX, K.H. Attending Clinician Problems This patient has no known problems. Allergies, Adverse Reactions, Alerts This patient has no known allergies or adverse reactions. Medications This patient has no known medications. Procedures This patient has no known procedures. Encounters Start End Encounter Admission Attending Care Care Encounter Source Date/Time Date/Time Type Type Clinicians Facility Department ID 2020-06-14 2020-06-14 Telephone VICK Potts [id number] 00:00:00 00:00:00 Rad Richards [id number] [place] [id number] [place]an [phone] nal 059 Building Results This patient has no known results.
--- OUTSIDE RECORDS SUMMARY | 2020-06-16 15:27 | XMS REPORT | Summary of Care ---
:[address] [facility] Address [address] [place] [address] Care Team Providers Name Role Phone Jessica Baker Insurance Hmo Kassandra Dennis MD Primary Care Provider Reason for Visit Reason Comments Rx Concern/Question Encounter Details Date Type Department Care Team Description 06/14/2020 Telephone [facility] Cardiology- Rad Potts, Rx Concern/Question Maurice FELIX [address] [place] [address], [address] MARIA LUISA [address] [place] [address] [place], [place] [phone] Allergies Active Allergy Reactions Severity Noted Date Comments Prochlorperazine Anxiety 05/29/2020 Latex Rash 04/13/2020 Metoclopramide Hcl Anxiety 07/12/2019 Patient s ays she gets figity, angry and mean documented as of this encounter (statuses as of 06/14/2020) Medications Medication Sig Dispensed Refills Start Date [...] as of this encounter (statuses as of 06/14/2020) Active Problems Problem Noted Date Visual changes 05/07/2020 Headache 04/30/2020 Sinus tachycardia 04/13/2020 Abdominal pain 04/13/2020 Anxiety disorder, unspecified type 01/05/2020 Insomnia, unspecified type 01/05/2020 Other depression 08/13/2019 documented as of this encounter (statuses as of 06/14/2020) Resolved Problems Problem Noted Date Resolved Date [...] as of this encounter (statuses as of 06/14/2020) Immunizations Name Administration Dates Next Due Influenza [...] in contact with Yes 05/29/2020 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 documented as of this encounter Last Filed Vital Signs Not on filedocumented in this encounter Miscellaneous Notes Telephone Encounter - Geena Sharif RN - 06/14/2020 11:11 AM CSTPatient was diagnosed with covid on May 23, 2020. Since this time she states that the metoprolol is not doing as good of a job at controlling her HR. States yesterday she was sitting in floor talking and her HR increased and she got short of breath while not doing anything physical. Patient states that she does not have a BP cuff to monitor BP or HR at home. Currently scheduled on this for in-office visit. Advised we will keep current scheduled appointment as [id number]. Recommended will route to provider for review if he wants to make changes prior to actual visit. If provider has any new suggestions will call her today, if not then will discuss during visit on 06.16.2020. She verbalized understanding and agreed with plan via teach back. elephone Encounter - Greg Adkins - 06/14/2020 8:43 AM CSTPatient calling to report that she has been having episodes where her rate starts racing. Patient states even when she is sitting an not doing any physical activity, her heart will start to race. Patient states she takes her metoprolol as instructed. Please advise. Patient requesting to know if she can make her appointment telehealth, or if Dr. Potts would preferto see her in person. documented in this encounter Plan of Treatment Date Type Specialty Care Team Description 06/16/2020 Office Visit Cardiology Rad Potts MD [address] [place] [address] [address] ROWE [address] [place], [place] [address] [phone] 06/17/2020 Office Visit Neurology Darrion Armstrong MD [address] [place] [address] [phone] 08/11/2020 Office Visit Obstetrics & Gynecology Young Quiñonez MD [address] [place] [address] [address]. Row[address] [place], [place] [phone] 15 Health Maintenance Due Date Last Done [...] Address T e Group Dates SAMMY CHRISTIANSON [id number] 2019-Pres Alisson RYAN [employer] [facility] [place] [id number] MANAGED MEDICAID [place], [place] documented as of this encounter
--- OUTSIDE RECORDS SUMMARY | 2020-06-16 15:28 | XMS REPORT | Summary of Care ---
:1995 Author Organization [facility] Address [address] [place] [address] Care Team Providers Name Role Phone Jessica Baker Insurance Hmo Kassandra Dennis MD Primary Care Provider Reason for Visit Reason Comments Rx Concern/Question Encounter Details Date Type Department Care Team Description 06/14/2020 Telephone [facility] Cardiology- Rad Potts, Rx Concern/Question Maurice FELIX [address] [place] [address], [address] MARIA LUISA [address] [place] [address] [place], [place] [phone] Allergies Active Allergy Reactions Severity Noted Date Comments Prochlorperazine Anxiety 05/29/2020 Latex Rash 04/13/2020 Metoclopramide Hcl Anxiety 07/12/2019 Patient s ays she gets figity, angry and mean documented as of this encounter (statuses as of 06/15/2020) Medications Medication Sig Dispensed Refills Start Date [...] as of this encounter (statuses as of 06/15/2020) Active Problems Problem Noted Date Visual changes 05/07/2020 Headache 04/30/2020 Sinus tachycardia 04/13/2020 Abdominal pain 04/13/2020 Anxiety disorder, unspecified type 01/05/2020 Insomnia, unspecified type 01/05/2020 Other depression 08/13/2019 documented as of this encounter (statuses as of 06/15/2020) Resolved Problems Problem Noted Date Resolved Date [...] as of this encounter (statuses as of 06/15/2020) Immunizations Name Administration Dates Next Due Influenza [...] in contact with Yes 05/29/2020 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 documented as of this encounter Last Filed Vital Signs Not on filedocumented in this encounter Miscellaneous Notes Telephone Encounter - Rad Potts MD - 06/15/2020 8:36 AM CSTI will discuss in the upcoming office visit. She may increase the metoprolol XL 25 mg to 1 tablet twice daily. [Based upon the MAR she has been taking 12.5 twice daily] elephone Encounter - Geena Shairf RN - 06/14/2020 11:11 AM CSTPatient was [...] we will keep current scheduled appointment as [id number]. Recommended will route to provider for review [...] Rad Potts MD [address] ROWE [address] [place] [address] [phone] 06/17/2020 Office Visit Neurology Darrion Armstrong MD [address] [place], [place] [address]d. [place] [address] [phone] 08/11/2020 Office Visit Obstetrics & Gynecology Young Quiñonez MD [address] [place] [address] 15 [phone] Health Maintenance Due Date Last Done Comments [...] / Subscriber ID Effective Phone Address T [facility] Group Dates SAMMY CHRISTIANSON [id number] 2019-Pres [address] Medic aid [employer] [place] [id number] MANAGED MEDICAID [place], [place] documented as of this encounter
--- NOTE | 2020-06-16 15:57 | ER ---
Nurse's Notes [facility] Name: Natanael Dyson Age: 25 yrs Sex: Female : 1995 Arrival Date: 06/16/2020 Time: 15:20 Bed Waiting Private MD: Diagnosis: ED Course: 06/16 15:20 Patient arrived in ED. mr 15:29 not in lobby or restroom when called to triage. sv 15:37 Not in lobby or restroom when called to triage. sv 15:55 Still not in lobby, left before triage. ll1 Administered Medications: No medications were administered Outcome: 15:56 Patient left the ED. ll1 Signatures: Anusha Tobin RN RN sv Rivera, Mary mr Lewis, Lynsay, RN RN ll1
== END 2020-06-16 15:56 | disposition left against medical advice (07) ==
LOC: ER 15:16
DX: Z02.9 Encounter for administrative examinations, unspecified (principal)

== ENCOUNTER 2020-07-03 05:43 | Emergency (ER) | payer MEDICAID ==
--- OUTSIDE RECORDS SUMMARY | 2020-07-03 05:45 | XMS REPORT | Continuity of Care Document ---
:[address] [facility] [place] t Address [address] [place] [address] [address]. [address] [place] [address] Care Team Providers Name Role Phone Kassandra Dennis MD Attending Clinician Delroy FELIX, K.H. Attending Clinician Problems This patient has no known problems. Allergies, Adverse Reactions, Alerts This patient has no known allergies or adverse reactions. Medications This patient has no known medications. Procedures This patient has no known procedures. Encounters Start End Encounter Admission Attending Care Care Encounter Source Date/Time Date/Time Type Type Clinicians Facility Department ID 2020-06-24 2020-06-24 Telephone VICK Dennis [id number] 00:00:00 00:00:00 [employer] [facility] [id number] Maurice [id number] Professio [phone] nal 044 Office Building One 2020-06-22 2020-06-22 Telephone VICK Potts [id number] 00:00:00 00:00:00 Rad Richards [id number] Rj [id number] Professio [phone] nal 059 Building 2020-06-14 2020-06-14 Telephone VICK Potts [id number] 00:00:00 00:00:00 Rad Richards [id number] [place] [id number] Professio [phone] [facility]9 Building Results This patient has no known results.
[2020-07-03 06:06] LABS: Absolute Lymphocytes (CBC) 1.9 K/uL (0.7-4.9); Basophils % 0.7 % (0-1.3); Hematocrit 38.5 % (36.0-45.0); Lymphocytes % 32.6 % (15.3-44.8); MPV 8.3 fL (7.6-11.3); RBC Red Blood Cell Count 4.39 M/uL (3.86-4.86)
[2020-07-03 06:11] LABS: Urine Blood TRACE (NEG); Urine Glucose NEGATIVE (NEG); Urine Protein NEGATIVE (NEG); Urine Specific Gravity >1.030 (1.005-1.030)
[2020-07-03] MEDS ORDERED: NA CHLORIDE 0.9% 1,000 ML ONE (06:25)
[2020-07-03] MEDS ORDERED: ONDANSETRON 4 MG/2 ML VIAL ONE (06:25)
[2020-07-03] MEDS ORDERED: MORPHINE 4 MG/ML SYR ONE ×2 (06:25→08:37)
[2020-07-03 06:41] LABS: ALT/SGPT 23 U/L (12-78); AST/SGOT 15 U/L (15-37); Albumin 3.6 g/dL (3.4-5.0); Alkaline Phosphatase 89 U/L (45-117); BUN Blood Urea Nitrogen 13 mg/dL (7-18); Bicarbonate 21 mmol/L (21-32); Bilirubin Direct < 0.1 mg/dL (0-0.2); Bilirubin Total 0.4 mg/dL (0.2-1.0); Glucose Level 97 mg/dL (74-106); Lipase 98 U/L (73-393); Potassium 3.5 mmol/L (3.5-5.1); Protein, Total 7.1 g/dL (6.4-8.2); Sodium Level 143 mmol/L (136-145)
[2020-07-03] MEDS ORDERED: PROMETHAZINE INJ 25 MG/ML AMP ONE (07:12)
[2020-07-03 07:14] LABS: Urine Bacteria <20 /HPF (<20); Urine Mucus MOD /HPF (NONE SEEN)
--- NOTE | 2020-07-03 07:53 | RAD REPORT ---
EXAM DESCRIPTION: CT - Abdomen Pelvis W Contrast - 07/03/2020 7:30 am CLINICAL HISTORY: Abd pain;Flank pain COMPARISON: Abdomen Pelvis W Contrast dated 06/02/2020 TECHNIQUE: Biphasic, helical CT imaging of the abdomen and pelvis was performed following 100 ml non -ionic IV contrast. No oral contrast administered. All CT scans are performed using dose optimization technique as appropriate and may include automated exposure control or mA/KV adjustment according to patient size. FINDINGS: No suspicious findings in the lung bases. The liver, spleen, and pancreas show no suspicious findings. Gallbladder and biliary tree are also wi thout suspicious finding. Liver attenuation is borderline for fatty infiltration. Renal function is symmetric. No pyelonephritis or acute renal parenchymal process identified. Patient has 2 nonobstructing calculi in upper pole calyx of the right kidney 1-2 mm in size. There is mild r ight-sided hydronephrosis and hydroureter down to the pelvic inlet level. More distally to the UVJ th e ureter is difficult to visualize. An obstructing calculus is not identified. No left-sided hydronep hrosis or left-sided calculi seen. There is no perinephric stranding. No urinary bladder wall thicken ing or edema. No adrenal abnormalities. No uterine abnormality seen. Nabothian cysts are present. Left ovary and left adnexae show no suspici ous finding. Right ovary is more heterogeneous in attenuation. Small amounts of free fluid are seen a djacent to the right ovary there appears to be approximately 2 centimeter partially involuted cyst. M inimal amounts of free fluid are seen along the right adnexa extending into the cul de sac. No dilated bowel loops or bowel wall thickening. The appendix is identified and normal. No free air o r pneumatosis. No focal inflammatory stranding seen. No mass or bulky lymphadenopathy. Patient has a small fat only umbilical hernia. No suspicious bony findings. IMPRESSION: No appendicitis, free air or other surgically emergent finding. Mild right-sided hydronephrosis without an obstructing calculus identified. This is new from prior im aging. No pyelonephritis or cystitis findings. Partially involuted right ovarian cyst with adjacent free fluid may represent changes are related to ovulation or cyst rupture. Patient is back and right lower quadrant pain pattern could be secondary to a recently passed stone o r possibly sandlike ureter debris that can be radiographically occult. Patient does have nonobstructi ng calculi in the right kidney. Pain related to ovulation or ovarian cyst rupture also possible pain source.
--- NOTE | 2020-07-03 08:04 | ER ---
Nurse's Notes [facility] Name: Natanael Dyson Age: 25 yrs Sex: Female : 1995 Arrival Date: 07/03/2020 Time: 05:48 Bed 2 Private MD: Diagnosis: Lower abdominal pain, unspecified;Unspecified ovarian cysts Presentation: 07/03 05:50 Chief complaint: EMS states: she started having RLQ pain radiating to the back mg2 yesterday before going to bed and fever 101.5. she has hx of kidney stone [address] [facility]. she vomited enroute. Coronavirus screen: Client denies travel out of the [place] in the last 14 days. Ebola Screen: No symptoms or risks identified at this time. Initial Sepsis Screen: Does the patient meet any 2 criteria? No. Patient's initial sepsis screen is negative. Does the patient have a suspected source of infection? No. Patient's initial sepsis screen is negative. Risk Assessment: Do you want to hurt yourself or someone else? Patient reports no desire to harm self or others. Onset of symptoms was July 02, 2020. 05:50 Method Of Arrival: EMS: [facility] mg2 05:50 Acuity: THIERNO 3 mg2 Triage Assessment: 05:54 General: Appears uncomfortable, Behavior is calm, cooperative. Pain: Complains of pain mg2 in abdomen Pain radiates to back. EENT: No signs and/or symptoms were reported regarding the EENT system. Neuro: Level of Consciousness is awake, alert, obeys commands, Oriented to person, place, time, situation. Cardiovascular: Capillary refill < 3 seconds Patient's skin is warm and dry. Respiratory: Airway is patent Respiratory effort is even, unlabored, Respiratory pattern is regular, symmetrical. GI: Reports lower abdominal pain, vomiting, since yesteday. : No signs and/or symptoms were reported regarding the genitourinary system. Derm: Skin is intact, is healthy with good turgor, Skin is pink, warm \T\ dry. normal. Musculoskeletal: Circulation, motion, and sensation intact. Capillary refill < 3 seconds. 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 - Social history:: Smoking status: Patient denies any tobacco usage or history of. Patient/guardian denies using alcohol, street drugs, IV drugs. Screenin:55 Abuse screen: Denies threats or abuse. Denies injuries from another. Nutritional mg2 screening: No deficits noted. Tuberculosis screening: No symptoms or risk factors identified. Fall Risk IV access (20 points). Assessment: 05:55 General: see triage note. mg2 05:56 GI: Bowel sounds present X 4 quads. Abd is soft X 4 quads Abdomen is tender to mg2 palpation X 4 quads. in right lower quadrant. 06:42 Reassessment: Patient appears in no apparent distress at this time. Patient and/or mg2 family updated on plan of care and expected duration. Pain level reassessed. Patient is alert, oriented x 3, equal unlabored respirations, skin warm/dry/pink. General:. 07:00 Reassessment: RECD REPORT FROM DANNIE CURRIE. 25YO WF P/W ABDOMINAL PAIN, CT PENDING. bp 07:05 General: Appears in no apparent distress. comfortable, Behavior is calm, cooperative. rb3 Pain: Complains of pain in abdomen. Neuro: Level of Consciousness is awake, alert, obeys commands, Oriented to person, place, time, situation. Cardiovascular: Patient's skin is warm and dry. Respiratory: Airway is patent Respiratory effort is even, unlabored, Respiratory pattern is regular, symmetrical. 07:22 Reassessment: PT TO CT. bp 07:59 Reassessment: No changes from previously documented assessment. Patient and/or family bp updated on plan of care and expected duration. Pain level reassessed. PT RETURNED FROM CT. 08:31 Reassessment: PT D/C HOME AMBULATORY WITH FAMILY, DX WITH OVARIAN CYSTS. bp Vital Signs: 05:50 BP 120 / 87; Pulse 91; Resp 18; Temp 98.5; Pulse Ox 100% on R/A; Weight 63.5 kg; Height mg2 5 ft. 2 in. (157.48 cm); Pain 8/10; 06:42 BP 107 / 92; Pulse 85; Resp 18; Pulse Ox 100% on R/A; mg2 07:23 BP 117 / 83; Pulse 86; Resp 17; Pulse Ox 100% ; bp 08:31 BP 108 / 73; Pulse 75; Resp 16; Pulse Ox 100% ; rb3 05:50 Body Mass Index 25.61 (63.50 kg, 157.48 cm) mg2 ED Course: 05:48 Patient arrived in ED. cf2 05:49 Tc Mcneill, RN is Primary Nurse. mg2 05:52 Triage completed. mg2 05:55 Arm band placed on. mg2 05:55 Patient has correct armband on for positive identification. mg2 05:56 No provider procedures requiring assistance completed. Inserted saline lock: 20 gauge mg2 in right forearm, using aseptic technique. Blood collected. 05:57 Canelo Da Silva MD is Attending Physician. mh7 07:13 Tc Mcneill, ROSEY is Primary Nurse. mg2 07:19 Primary Nurse role handed off by Tc Mcneill RN rb3 07:19 Barbara Simon, ROSEY is Primary Nurse. rb3 07:30 CT Abd/Pelvis - IV Contrast Only In Process Unspecified. EDMS 07:46 Attending Physician role handed off by Canelo Da Silva MD rn 07:46 Harjit Samson MD is Attending Physician. rn 08:31 IV discontinued, intact, bleeding controlled, No redness/swelling at site. Pressure bp dressing applied. Administered Medications: 06:10 Drug: NS 0.9% 1000 ml Route: IV; Rate: 1000 ml; Site: right forearm; rr5 08:33 Follow up: IV Status: Completed infusion; IV Intake: 1000ml bp 06:10 Drug: Zofran (Ondansetron) 4 mg Route: IVP; Site: right forearm; rr5 07:00 Follow up: Response: No adverse reaction; No change in condition rr5 06:12 Drug: morphine 4 mg {Note: rass 0.} Route: IVP; Site: right forearm; rr5 07:00 Follow up: Response: No adverse reaction; Pain is unchanged, physician notified; RASS: rr5 Alert and Calm (0) 07:00 Drug: Phenergan 12.5 mg Route: IVP; Site: right forearm; rr5 07:58 Follow up: Response: No adverse reaction bp 08:10 Drug: morphine 4 mg Route: IVP; Site: right forearm; bp 08:23 Follow up: Response: Pain is decreased bp Intake: 08:33 IV: 1000ml; Total: 1000ml. bp Outcome: 08:03 Discharge ordered by . rn 08:32 Discharged to home ambulatory. rb3 08:32 Condition: stable 08:32 Discharge instructions given to patient, Instructed on discharge instructions, follow up and referral plans. medication usage, Demonstrated understanding of instructions, follow-up care, medications, Prescriptions given X 1. 08:33 Patient left the ED. rb3 Signatures: Dispatcher [employer] EDMS Harjit Samson MD MD rn Peltier, Brian RN RN bp Tc Mcneill RN RN mg2 Roque, Raymond RN RN rr5 Lea Moreland 2 Canelo Da Silva MD MD 7 Barbara Simon, RN RN rb3 Corrections: (The following items were deleted from the chart) 06:45 06:42 Pulse 90bpm; Resp 18bpm; Pulse Ox 100% RA; mg2 mg2
--- NOTE | 2020-07-03 08:04 | EDPHYS ---
Physician Documentation [facility] Name: Natanael Dyson Age: 25 yrs Sex: Female : 1995 Arrival Date: 07/03/2020 Time: 05:48 Bed 2 Private MD: ED Physician Harjit Samson HPI: 07/03 06:29 This 25 yrs old Female presents to ER via EMS with complaints of Abdominal mh7 Pain. 06:29 The patient presents with abdominal pain right lower quadrant. Onset: The mh7 symptoms/episode began/occurred yesterday. The symptoms radiate to the right flank. 06:29 Associated signs and symptoms: Pertinent positives: nausea and vomiting, Pertinent mh7 negatives: anorexia, blood in stools, chest pain, constipation, diarrhea, dysuria, fever, headache, hematuria, palpitations, shortness of breath, vaginal discharge, vomiting blood. The symptoms are described as intermittent, vague, waxing/waning. Modifying factors: The symptoms are alleviated by nothing, the symptoms are aggravated by nothing. Severity of pain: At its worst the pain was moderate last night, in the emergency department the pain is unchanged. 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 - Social history:: Smoking status: Patient denies any tobacco usage or history of. Patient/guardian denies using alcohol, street drugs, IV drugs. ROS: 06:29 Eyes: Negative for injury, pain, redness, and discharge, ENT: Negative for injury, mh7 pain, and discharge, Neck: Negative for injury, pain, and swelling, Cardiovascular: Negative for chest pain, palpitations, and edema, Respiratory: Negative for shortness of breath, cough, wheezing, and pleuritic chest pain, : Negative for injury, bleeding, discharge, and swelling, MS/Extremity: Negative for injury and deformity, Skin: Negative for injury, rash, and discoloration, Neuro: Negative for headache, weakness, numbness, tingling, and seizure, Psych: Negative for depression, anxiety, suicide ideation, homicidal ideation, and hallucinations, Allergy/Immunology: Negative for hives, rash, and allergies, Endocrine: Negative for neck swelling, polydipsia, polyuria, polyphagia, and marked weight changes, Hematologic/Lymphatic: Negative for swollen nodes, abnormal bleeding, and unusual bruising. Exam: 06:29 Head/Face: Normocephalic, atraumatic. Eyes: Pupils equal round and reactive to light, mh7 extra-ocular motions intact. Lids and lashes normal. Conjunctiva and sclera are non-icteric and not injected. Cornea within normal limits. Periorbital areas with no swelling, redness, or edema. Neck: Trachea midline, no thyromegaly or masses palpated, and no cervical lymphadenopathy. Supple, full range of motion without nuchal rigidity, or vertebral point tenderness. No Meningismus. Chest/axilla: Normal chest wall appearance and motion. Nontender with no deformity. No lesions are appreciated. Cardiovascular: Regular rate and rhythm with a normal S1 and S2. No gallops, murmurs, or rubs. Normal PMI, no JVD. No pulse deficits. Respiratory: Lungs have equal breath sounds bilaterally, clear to auscultation and percussion. No rales, rhonchi or wheezes noted. No increased work of breathing, no retractions or nasal flaring. 06:29 Skin: Warm, dry with normal turgor. Normal color with no rashes, no lesions, and no evidence of cellulitis. MS/ Extremity: Pulses equal, no cyanosis. Neurovascular intact. Full, normal range of motion. Neuro: Awake and alert, GCS 15, oriented to person, place, time, and situation. Cranial nerves II-XII grossly intact. Motor strength 5/5 in all extremities. Sensory grossly intact. Cerebellar exam normal. Normal gait. Psych: Awake, alert, with orientation to person, place and time. Behavior, mood, and affect are within normal limits. 06:29 Constitutional: The patient appears in no acute distress, alert, awake, uncomfortable. 06:29 Abdomen/GI: Inspection: abdomen appears normal, Bowel sounds: normal, in all quadrants, Palpation: moderate abdominal tenderness, in the right lower quadrant, Rectal exam: the exam is deferred, because of patient request, Indicators: McBurney's point is not tender, Ayoub's sign is negative, Rovsing's sign is negative, Obturator sign is negative, Psoas sign is negative, Liver: no appreciated palpable abnormalities, Hernia: not appreciated. 06:29 Back: ROM is normal, normal spinal alignment noted, CVA tenderness, that is moderate, is noted on the right, muscle spasm, is not present. Vital Signs: 05:50 BP 120 / 87; Pulse 91; Resp 18; Temp 98.5; Pulse Ox 100% on R/A; Weight 63.5 kg; Height mg2 5 ft. 2 in. (157.48 cm); Pain 8/10; 06:42 BP 107 / 92; Pulse 85; Resp 18; Pulse Ox 100% on R/A; mg2 07:23 BP 117 / 83; Pulse 86; Resp 17; Pulse Ox 100% ; bp 08:31 BP 108 / 73; Pulse 75; Resp 16; Pulse Ox 100% ; rb3 05:50 Body Mass Index 25.61 (63.50 kg, 157.48 cm) mg2 MDM: 07:46 Patient medically screened. rn 08:01 Differential diagnosis: appendicitis, non-specific abd pain, ovarian cyst, ruptured rn cyst, kidney stone. Data reviewed: vital signs, nurses notes, lab test result(s), radiologic studies, CT scan, and as a result, I will discharge patient. Counseling: I had a detailed discussion with the patient and/or guardian regarding: the historical points, exam findings, and any diagnostic results supporting the discharge/admit diagnosis, lab results, radiology results, the need for outpatient follow up, to return to the emergency department if symptoms worsen or persist or if there are any questions or concerns that arise at home. Response to treatment: the patient's symptoms have mildly improved after treatment, and as a result, I will discharge patient. Special discussion: Based on the patient's Hx, exam, and Dx evaluation, there is no indication for emergent surgery or inpatient Tx. It is understood by the patient/guardian that if the Sx's persist or worsen they need to return immediately for re-evaluation. I discussed with the patient/guardian in detail that at this point there is no indication for admission to the hospital. It is understood, however, that if the symptoms persist or worsen the patient needs to return immediately for re-evaluation. ED course: CT no acute findings, possible ruptured ovarian cyst vs recently passed stone, neg UA, will dc home with prn pain meds. . 07/03 05:52 Order name: Basic Metabolic Panel; Complete Time: 06:49 mg2 07/03 05:52 Order name: CBC with Diff; Complete Time: 06:49 mg2 07/03 05:52 Order name: Hepatic Function; Complete Time: 06:49 mg2 07/03 05:52 Order name: Lipase; Complete Time: 06:49 mg2 07/03 05:57 Order name: Urine Microscopic Only; Complete Time: 08:01 rr5 07/03 05:57 Order name: Urine Dipstick--Ancillary (enter results) tt3 07/03 05:58 Order name: Urine Dipstick-Ancillary; Complete Time: 06:49 EDMS 07/03 06:50 Order name: CT Abd/Pelvis - IV Contrast Only; Complete Time: 08:01 mh7 07/03 06:55 Order name: Urine --Ancillary (enter results) eb 07/03 06:56 Order name: Urine --Ancillary; Complete Time: 08:01 EDMS 07/03 05:52 Order name: IV Saline Lock; Complete Time: 05:53 mg2 07/03 05:52 Order name: Labs collected and sent; Complete Time: 05:53 mg2 07/03 05:52 Order name: Urine Dipstick-Ancillary (obtain specimen); Complete Time: 05:53 mg2 07/03 05:52 Order name: Urine Test (obtain specimen); Complete Time: 05:53 mg2 Administered Medications: 06:10 Drug: NS 0.9% 1000 ml Route: IV; Rate: 1000 ml; Site: right forearm; rr5 08:33 Follow up: IV Status: Completed infusion; IV Intake: 1000ml bp 06:10 Drug: Zofran (Ondansetron) 4 mg Route: IVP; Site: right forearm; rr5 07:00 Follow up: Response: No adverse reaction; No change in condition rr5 06:12 Drug: morphine 4 mg {Note: rass 0.} Route: IVP; Site: right forearm; rr5 07:00 Follow up: Response: No adverse reaction; Pain is unchanged, physician notified; RASS: rr5 Alert and Calm (0) 07:00 Drug: Phenergan 12.5 mg Route: IVP; Site: right forearm; rr5 07:58 Follow up: Response: No adverse reaction bp 08:10 Drug: morphine 4 mg Route: IVP; Site: right forearm; bp 08:23 Follow up: Response: Pain is decreased bp Disposition: 07/03/20 08:03 Discharged to Home. Impression: Lower abdominal pain, unspecified, Unspecified ovarian cysts. - Condition is Stable. - Discharge Instructions: Abdominal Pain, Adult, Ovarian Cyst. - Prescriptions for Diclofenac Sodium 75 mg Oral Tablet, Delayed Release (E.C.) - take 1 tablet by ORAL route 2 times per day; 20 tablet. - Medication Reconciliation Form, Thank You Letter, Antibiotic Education, Prescription Opioid Use, Work release form form. - Follow up: Private Physician; When: As needed; Reason: Recheck today's complaints, Re-evaluation by your physician. - Problem is new. - Symptoms have improved. Signatures: Dispatcher [employer] EDMS Harjit Samson MD MD rn Peltier, Brian RN RN bp Tc Mcneill RN RN mg2 [place] RN RN rr5 Canelo Da Silva MD MD 7 Barbara Simon, RN RN rb3 Corrections: (The following items were deleted from the chart) 08:33 08:03 07/03/2020 08:03 Discharged to Home. Impression: Lower abdominal pain, rb3 unspecified; Unspecified ovarian cysts. Condition is Stable. Forms are Medication Reconciliation Form, Thank You Letter, Antibiotic Education, Prescription Opioid Use. Follow up: Private Physician; When: As needed; Reason: Recheck today's complaints, Re-evaluation by your physician. Problem is new. Symptoms have improved. rn
[2020-07-03 08:37] VITALS: TEMP 98.5; O2SAT 100
[2020-07-03 08:41] VITALS: BP 108/73
== END 2020-07-03 08:33 | disposition home or self-care (01) ==
LOC: ER 05:43
DX: N83.209 Unspecified ovarian cyst, unspecified side (principal); Z88.1 Allergy status to other antibiotic agents; Z88.8 Allergy status to other drugs, medicaments and biological substances; Z91.040 Latex allergy status
CPT/HCPCS: 96361; 85025; 80048; 36415; 81025; 80076; 83690; 74177; 96375; 96374; 99284; Q9967; J2550; J7030; J2405; 81003; 81015

== ENCOUNTER 2020-08-02 04:23 | Emergency (ER) | payer MEDICAID ==
--- OUTSIDE RECORDS SUMMARY | 2020-08-02 04:26 | XMS REPORT | Continuity of Care Document ---
:1995 Author Organization [facility] t Address [address] [place] [address] Care Team Providers Name Role Phone Robert Barrera Attending Clinician Vikki HENDRICKS Attending Clinician Doctor Unassigned, Name Attending Clinician Unavailable Natali HENDRICKS, B Attending Clinician Khang FELIX, Jm Attending Clinician Terry FELIX, Jessica Attending Clinician Felice HENDRICKS Attending Clinician Sonny FELIX, Kassandra Attending Clinician Delroy FELIX, K.H. Attending Clinician Bipin Jennings MD Admitting Clinician Problems This patient has no known problems. Allergies, Adverse Reactions, Alerts This patient has no known allergies or adverse reactions. Medications This patient has no known medications. Procedures This patient has no known procedures. Encounters Start End Encounter Admission Attending Care Care Encounter Source Date/Time Date/Time Type Type Clinicians Facility Department ID 2020-08-01 2020-08-01 Emergency VICK Hogan [id number] 16:59:00 21:27:00 Lianne Richards [id number] [place] [id number] [place] [id number] 2020-07-22 2020-07-22 Emergency VICK Florez [id number] 17:53:00 21:32:00 Miquel Maurice [id number] [place] [id number] [place] [id number] 2020-07-15 2020-07-15 Emergency Samira [facility] [id number] 18:18:00 22:52:00 Lianne Robert Richards [id number] [place] [id number] [place] [id number] [id number] 2020-07-15 2020-07-15 Orders Doctor JORDAN [id number] 00:00:00 00:00:00 Only Unassigned, YAZMIN [id number] [place] [facility] [id number] 2020-07-07 2020-07-07 Emergency Natali, [facility] [id number] 19:01:00 23:16:00 Omari Richards [id number] [place] [id number] [place] [id number] 2020-07-07 2020-07-07 Telephone Shelia Quiñonez [facility] [id number] 00:00:00 00:00:00 Jm Richards [id number] [place] [id number] [facility] [id number] [address] 2020-07-05 2020-07-06 Emergency Terry, [facility] [id number] 22:33:00 [facility]:38:[id number] [place] [id number] [facility] [phone] [address] ([facility]) 2020-07-05 2020-07-05 Emergency Felice [facility] [id number] 19:38:00 21:45:00 Roberto Richards [id number] [place] [id number] [place] [id number] 2020-06-24 2020-06-24 Telephone Sonny [facility] [id number] 00:00:00 00:00:00 [facility] [id number] [place] [id number] [place] [id number] [address]al [address] 2020-06-22 2020-06-22 [facility] [id number] 00:00:00 00:00:00 Rad Richards [id number] [place] [id number] [facility] [id number] nal 059 [facility] 2020-06-21 2020-06-21 Orders Doctor JORDAN [id number] 00:00:00 00:00:00 Only Unassigned, YAZMIN [id number] [place] [facility] [id number] 2020-06-14 2020-06-14 Telephone [facility] [id number] 00:00:00 00:00:00 Rad Richards [id number] [place] [id number] [phone] [address] Results This patient has no known results.
[2020-08-02] MEDS ORDERED: NA CHLORIDE 0.9% 1,000 ML ONE (05:03)
[2020-08-02] MEDS ORDERED: ONDANSETRON 4 MG/2 ML VIAL ONE ×2 (05:03→07:08)
[2020-08-02] MEDS ORDERED: CEFTRIAXONE/SWI 1gm 1 GM/10 ML SYR ONE (05:04)
[2020-08-02 05:10] LABS: Absolute Lymphocytes (CBC) 2.5 K/uL (0.7-4.9); Basophils % 0.9 % (0-1.3); Hematocrit 36.8 % (36.0-45.0); Lymphocytes % 31.5 % (15.3-44.8)
[2020-08-02 05:20] LABS: Albumin 3.4 g/dL (3.4-5.0); Bilirubin Direct 0.1 mg/dL (0-0.2); Bilirubin Total 0.5 mg/dL (0.2-1.0); Potassium 3.6 mmol/L (3.5-5.1)
[2020-08-02] MEDS ORDERED: PROMETHAZINE INJ 25 MG/ML AMP ONE (05:43)
[2020-08-02 05:52] LABS: Urine Blood 1+ (NEG); Urine Glucose NEGATIVE (NEG); Urine Protein NEGATIVE (NEG); Urine Specific Gravity 1.025 (1.005-1.030); Urine pH 5.5 (5.0-7.0)
--- NOTE | 2020-08-02 07:00 | ER ---
Nurse's Notes [facility] Name: Natanael Dyson Age: 25 yrs Sex: Female : 1995 Arrival Date: 08/02/2020 Time: 04:24 Bed 6 Private MD: Diagnosis: Calculus of kidney and ureter-Right sided Presentation: 08/02 04:25 Chief complaint: Patient states: patient was seen at [facility] yesterday for Right mg2 Kidney stones, Hogan Catheter inserted and now she is complaining of pain in the site with bleeding noted. Coronavirus screen: Client denies travel out of the [place] in the last 14 days. Ebola Screen: No symptoms or risks identified at this time. Initial Sepsis Screen: Does the patient meet any 2 criteria? No. Patient's initial sepsis screen is negative. Does the patient have a suspected source of infection? No. Patient's initial sepsis screen is negative. Risk Assessment: Do you want to hurt yourself or someone else? Patient reports no desire to harm self or others. Onset of symptoms was August 02, 2020. 04:25 Method Of Arrival: EMS: [facility] mg2 04:25 Acuity: THIERNO 4 mg2 Triage Assessment: 04:28 General: Appears in no apparent distress. comfortable, Behavior is calm, cooperative. mg2 Pain: Complains of pain in FC site. 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 - Social history:: Smoking status: Patient denies any tobacco usage or history of. Patient/guardian denies using alcohol, street drugs, IV drugs, Patient/guardian denies using The patient lives with spouse. - Family history:: not pertinent. Screenin:28 Abuse screen: Denies threats or abuse. Denies injuries from another. Nutritional mg2 screening: No deficits noted. Tuberculosis screening: No symptoms or risk factors identified. Fall Risk None identified. Assessment: 04:28 Reassessment: see triage note. mg2 04:30 Reassessment: Hogan catheter removed per patient request. provider is aware. mg2 06:16 Reassessment: Patient appears in no apparent distress at this time. Patient and/or mg2 family updated on plan of care and expected duration. Pain level reassessed. Patient is alert, oriented x 3, equal unlabored respirations, skin warm/dry/pink. 07:14 Reassessment: Patient appears in no apparent distress at this time. Patient and/or wh family updated on plan of care and expected duration. Pain level reassessed. Patient is alert, oriented x 3, equal unlabored respirations, skin warm/dry/pink. Patient states feeling better. Patient states symptoms have improved. Vital Signs: 04:25 BP 113 / 71; Pulse 109; Resp 18; Temp 98.2; Pulse Ox 98% on R/A; Weight 68.04 kg; mg2 Height 5 ft. 1 in. (154.94 cm); 06:30 BP 105 / 70; Pulse 85; Resp 18; Pulse Ox 99% on R/A; wh 04:25 Body Mass Index 28.34 (68.04 kg, 154.94 cm) mg2 ED Course: 04:24 Patient arrived in ED. mg2 04:24 Klaus Cevallos MD is Attending Physician. ma2 04:27 Triage completed. mg2 04:28 Arm band placed on. mg2 04:28 Patient has correct armband on for positive identification. mg2 04:28 No provider procedures requiring assistance completed. mg2 04:39 Tc Mcneill, ROSEY is Primary Nurse. mg2 04:45 Inserted saline lock: 20 gauge in right antecubital area, using aseptic technique. mg2 Blood collected. 06:18 CT Abd/Pelvis - IV Contrast Only In Process Unspecified. EDMS 06:58 Tristan Moeller MD is Referral Physician. ma2 07:16 IV discontinued, intact, bleeding controlled, No redness/swelling at site. wh Administered Medications: 04:52 Drug: NS 0.9% 1000 ml Route: IV; Rate: 1 bolus; Site: right antecubital; mg2 04:52 Drug: Rocephin (cefTRIAXone) 1 grams Route: IV; Rate: calculated rate; Site: right mg2 antecubital; 04:52 Drug: Zofran (Ondansetron) 4 mg Route: IVP; Site: right antecubital; mg2 07:15 Follow up: Response: No adverse reaction; Nausea unchanged wh 05:34 Drug: Phenergan 25 mg Route: IVP; Site: right antecubital; mg2 07:15 Follow up: Response: No adverse reaction; Nausea is decreased wh 05:34 Drug: morphine 4 mg Route: IVP; Site: right antecubital; mg2 07:15 Follow up: Response: No adverse reaction; Pain is decreased; RASS: Alert and Calm (0) 07:06 Drug: morphine 4 mg {Note: RASS 0.} Route: IVP; Site: right antecubital; wh 07:15 Follow up: Response: No adverse reaction; Pain is decreased; RASS: Alert and Calm (0) 07:08 Drug: Zofran (Ondansetron) 4 mg Route: IVP; Site: right antecubital; 07:14 Follow up: Response: No adverse reaction; Nausea is decreased Outcome: 06:59 Discharge ordered by MD. goff 07:09 Patient left the ED. 07:15 Discharged to home ambulatory. 07:15 Condition: stable 07:15 Discharge instructions given to patient, Instructed on discharge instructions, follow up and referral plans. medication usage, POC Demonstrated understanding of instructions, follow-up care, medications, POC Prescriptions given X 3. Signatures: Dispatcher [employer] EDNoam De Anda RN RN Klaus Cevallos MD MD ma2 Gardose, Michele, RN RN mg2 Corrections: (The following items were deleted from the chart) 04:39 04:28 Patient did not have IV access during this emergency room visit. mg2 mg2
--- NOTE | 2020-08-02 07:00 | EDPHYS ---
Physician Documentation [facility] Name: Natanael Dyson Age: 25 yrs Sex: Female : 1995 Arrival Date: 08/02/2020 Time: 04:24 Bed 6 Private MD: ED Physician Klaus Cevallos HPI: 08/02 04:39 This 25 yrs old Female presents to ER via EMS with complaints of right flank ma2 pain. 04:39 Onset: The symptoms/episode began/occurred gradually, 1 day(s) ago. Associated signs ma2 and symptoms: Pertinent negatives: nausea and vomiting, chest pain, diarrhea, fever. Severity of pain: At its worst the pain was moderate in the emergency department the pain is unchanged. The patient has experienced similar episodes in the past. 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 - Social history:: Smoking status: Patient denies any tobacco usage or history of. Patient/guardian denies using alcohol, street drugs, IV drugs, Patient/guardian denies using The patient lives with spouse. - Family history:: not pertinent. ROS: 04:39 Constitutional: Negative for fever, chills, and weight loss. ma2 04:39 All other systems are negative. Exam: 04:39 Constitutional: This is a well developed, well nourished patient who is awake, alert, ma2 and in no acute distress. ENT: Nares patent. No nasal discharge, no septal abnormalities noted. Tympanic membranes are normal and external auditory canals are clear. Oropharynx with no redness, swelling, or masses, exudates, or evidence of obstruction, uvula midline. Mucous membranes moist. Neck: Trachea midline, no thyromegaly or masses palpated, and no cervical lymphadenopathy. Supple, full range of motion without nuchal rigidity, or vertebral point tenderness. No Meningismus. Chest/axilla: Normal chest wall appearance and motion. Nontender with no deformity. No lesions are appreciated. Cardiovascular: Regular rate and rhythm with a normal S1 and S2. No gallops, murmurs, or rubs. Normal PMI, no JVD. No pulse deficits. Respiratory: Lungs have equal breath sounds bilaterally, clear to auscultation and percussion. No rales, rhonchi or wheezes noted. No increased work of breathing, no retractions or nasal flaring. Abdomen/GI: Soft, non-tender, with normal bowel sounds. No distension or tympany. No guarding or rebound. No evidence of tenderness throughout. Back: No spinal tenderness. + right costovertebral tenderness. Full range of motion. MS/ Extremity: Pulses equal, no cyanosis. Neurovascular intact. Full, normal range of motion. Neuro: Awake and alert, GCS 15, oriented to person, place, time, and situation. Cranial nerves II-XII grossly intact. Motor strength 5/5 in all extremities. Sensory grossly intact. Cerebellar exam normal. Normal gait. Vital Signs: 04:25 BP 113 / 71; Pulse 109; Resp 18; Temp 98.2; Pulse Ox 98% on R/A; Weight 68.04 kg; mg2 Height 5 ft. 1 in. (154.94 cm); 06:30 BP 105 / 70; Pulse 85; Resp 18; Pulse Ox 99% on R/A; wh 04:25 Body Mass Index 28.34 (68.04 kg, 154.94 cm) mg2 MDM: 04:24 Patient medically screened. ma2 04:39 Differential diagnosis: cholecystitis, Cholelithiasis, diverticulitis, Ectopic ma2 , gastroesophageal reflux disease, Irritable bowel syndrome, urinary tract infection. Data reviewed: vital signs, nurses notes. 06:01 ED course: dr. Tellez called back and states that since patient had an EGD 2 weeks ma2 ago. this is recurrent upper gi bleeding and he may benefit from TIPS and therefore he will need to be transferred to the medical center for higher level of care . ED course: will initiate a transfer . 06:58 Counseling: I had a detailed discussion with the patient and/or guardian regarding: the ma2 historical points, exam findings, and any diagnostic results supporting the discharge/admit diagnosis, the presence of at least one elevated blood pressure reading (>120/80) during this emergency department visit, the need for outpatient follow up. Response to treatment: the patient's symptoms have markedly improved after treatment, the patient's symptoms have resolved after treatment. 08/02 04:39 Order name: Basic Metabolic Panel; Complete Time: 06:03 nj08/02 04:39 Order name: CBC with Diff; Complete Time: 06:03 nj08/02 04:39 Order name: Hepatic Function; Complete Time: 06:03 08/02 04:39 Order name: Lipase; Complete Time: 06:03 nj08/02 04:54 Order name: Urine Dipstick--Ancillary (enter results); Complete Time: 06:03 08/02 04:54 Order name: Urine --Ancillary (enter results) 08/02 04:39 Order name: CT Abd/Pelvis - IV Contrast Only 08/02 04:39 Order name: IV Saline Lock; Complete Time: 04:52 nj2 08/02 04:39 Order name: Labs collected and sent; Complete Time: 04:52 nj08/02 04:39 Order name: Urine Dipstick-Ancillary (obtain specimen); Complete Time: 04:52 Administered Medications: 04:52 Drug: NS 0.9% 1000 ml Route: IV; Rate: 1 bolus; Site: right antecubital; mg2 04:52 Drug: Rocephin (cefTRIAXone) 1 grams Route: IV; Rate: calculated rate; Site: right mg2 antecubital; 04:52 Drug: Zofran (Ondansetron) 4 mg Route: IVP; Site: right antecubital; mg2 07:15 Follow up: Response: No adverse reaction; Nausea unchanged wh 05:34 Drug: Phenergan 25 mg Route: IVP; Site: right antecubital; mg2 07:15 Follow up: Response: No adverse reaction; Nausea is decreased wh 05:34 Drug: morphine 4 mg Route: IVP; Site: right antecubital; mg2 07:15 Follow up: Response: No adverse reaction; Pain is decreased; RASS: Alert and Calm (0) 07:06 Drug: morphine 4 mg {Note: RASS 0.} Route: IVP; Site: right antecubital; wh 07:15 Follow up: Response: No adverse reaction; Pain is decreased; RASS: Alert and Calm (0) 07:08 Drug: Zofran (Ondansetron) 4 mg Route: IVP; Site: right antecubital; 07:14 Follow up: Response: No adverse reaction; Nausea is decreased Disposition: 08/02/20 06:59 Discharged to Home. Impression: Calculus of kidney and ureter - Right sided. - Condition is Stable. - Discharge Instructions: Dietary Guidelines to Help Prevent Kidney Stones. - Prescriptions for Diclofenac Sodium 75 mg Oral Tablet Sustained Release - take 1 tablet by ORAL route 2 times per day; 30 tablet. Zofran 4 mg Oral Tablet - take 1 tablet by ORAL route every 12 hours As needed; 20 tablet. Cyclobenzaprine 10 mg Oral Tablet - take 1 tablet by ORAL route every 8 hours As needed; 30 tablet. - Medication Reconciliation Form, Thank You Letter, Antibiotic Education, Prescription Opioid Use form. - Follow up: Tristan Moeller MD; When: Tomorrow; Reason: Continuance of care. Signatures: Dispatcher [employer] EDNoam De Anda RN RN Klaus Cevallos MD MD ma2 Tc Mcneill RN RN mg2 Corrections: (The following items were deleted from the chart) 07:09 06:59 08/02/2020 06:59 Discharged to Home. Impression: Calculus of kidney and ureter - Right sided. Condition is Stable. Prescriptions for Diclofenac Sodium 75 mg Oral Tablet Sustained Release - take 1 tablet by ORAL route 2 times per day; 30 tablet, Zofran 4 mg Oral Tablet - take 1 tablet by ORAL route every 12 hours As needed; 20 tablet, Cyclobenzaprine 10 mg Oral Tablet - take 1 tablet by ORAL route every 8 hours As needed; 30 tablet. and Forms are Medication Reconciliation Form, Thank You Letter, Antibiotic Education, Prescription Opioid Use. Follow up: Tristan Moeller; When: Tomorrow; Reason: Continuance of care. ma2
[2020-08-02] MEDS ORDERED: MORPHINE 4 MG/ML SYR ONE (07:08)
[2020-08-02 07:21] VITALS: BP 113/71; TEMP 98.2; O2SAT 98
--- NOTE | 2020-08-02 10:47 | RAD REPORT ---
EXAM DESCRIPTION: CT - Abdomen Pelvis W Contrast - 08/02/2020 6:54 am CLINICAL HISTORY: The patient is 25 years old and is Female; ABD PAIN TECHNIQUE: Axial computed tomography images of the abdomen and pelvis with intravenous contrast. S agittal and coronal reformatted images were created and reviewed. This CT exam was performed using one or more of the following dose reduction techniques: automated exposure control, adjustment of t he mA and/or kV according to patient size, and/or use of iterative reconstruction technique. COMPARISON: CT abdomen pelvis July 03, 2020. FINDINGS: Lung bases: Unremarkable. No mass. No consolidation. ABDOMEN: Liver: Unremarkable. No mass. Gallbladder and bile ducts: Unremarkable. No calcified stones. No ductal dilation. Pancreas: No findings to suggest acute pancreatitis. No mass visualized. No ductal dilation. Spleen: Unremarkable. No splenomegaly. Adrenals: Unremarkable. No mass. Kidneys and ureters: Punctate bilateral nephrolithiasis. No hydronephrosis or ureter stone. No solid renal lesion. Stomach and bowel: No bowel dilatation or obstruction. No bowel wall thickening. PELVIS: Appendix: The visualized appendix is normal. No pericecal inflammation to suggest acute appendici tis. Bladder: Unremarkable. No mass. Reproductive: 1.5 cm right ovarian corpus luteum. Uterus and right ovary are unremarkable. ABDOMEN and PELVIS: Intraperitoneal space: Free fluid in the right adnexa, likely physiologic. No abscess or free air. Bones/joints: No acute fracture. No dislocation. Soft tissues: scar in the low anterior abdominal wall. Vasculature: Unremarkable. No abdominal aortic aneurysm. Lymph nodes: No pathologically enlarged lymph nodes. IMPRESSION: 1. Punctate bilateral nephrolithiasis. No hydronephrosis or ureter stone. 2. 1.5 cm right ovarian corpus luteum. No follow-up imaging is recommended. Reference: J Am Lyudmila Radiol 2013;10:[id number] Electronically signed by: Anusha Pratt MD 08/02/2020 6:33 AM CDT Due to temporary technical issues with the PACS/Fluency reporting system, reports are being signed by the in house radiologists without review as a courtesy to insure prompt reporting. The interpreting radiologist is fully responsible for the content of the report.
== END 2020-08-02 07:09 | disposition home or self-care (01) ==
LOC: ER 04:23
DX: N20.2 Calculus of kidney with calculus of ureter (principal); Z87.442 Personal history of urinary calculi; Z88.1 Allergy status to other antibiotic agents; Z88.5 Allergy status to narcotic agent; Z91.040 Latex allergy status; Z91.048 Other nonmedicinal substance allergy status
CPT/HCPCS: 85025; 80048; 36415; 81025; 80076; 81003; 83690; 74177; Q9967; J2550; J0696; J7030; J2405 ×2; 96374; 96375; 99284

== ENCOUNTER 2020-08-13 21:22 | Emergency (ER) | payer MEDICAID, OTHER ==
--- OUTSIDE RECORDS SUMMARY | 2020-08-13 21:24 | XMS REPORT | Continuity of Care Document ---
:1995 Author Organization [facility] t Address [address] [place] [address] [address] [place] [address] Care Team Providers Name Role Phone Delroy FELIX K.HPilar Attending Clinician Doctor Unassigned, Name Attending Clinician Unavailable Problems This patient has no known problems. Allergies, Adverse Reactions, Alerts This patient has no known allergies or adverse reactions. Medications This patient has no known medications. Procedures This patient has no known procedures. Encounters Start End Encounter Admission Attending Care Care Encounter Source Date/Time Date/Time Type Type Clinicians Facility Department ID 2020-06-16 2020-06-16 Office VICK [facility]otts [id number] 14:02:17 14:47:54 Visit Rad [facility] [id number] [place] [id number] [facility] [id number] [address] 2020-06-16 2020-06-16 Orders Doctor ORTEGA [id number] 00:00:00 00:00:00 Only UnassignedYAZMIN [id number] [place] [id number] Results This patient has no known results.
[2020-08-13] MEDS ORDERED: MORPHINE 4 MG/ML SYR ONE (22:16)
[2020-08-13] MEDS ORDERED: ONDANSETRON 4 MG/2 ML VIAL ONE ×2 (22:16→23:03)
[2020-08-13 22:42] LABS: Absolute Lymphocytes (CBC) 2.9 K/uL (0.7-4.9); Basophils % 0.9 % (0-1.3); Lymphocytes % 38.4 % (15.3-44.8); MPV 8.2 fL (7.6-11.3); RBC Red Blood Cell Count 4.27 M/uL (3.86-4.86)
[2020-08-13 22:44] LABS: Potassium 3.5 mmol/L (3.5-5.1)
[2020-08-14] MEDS ORDERED: FENTANYL CITR 100 MCG/2 ML ONE (00:02)
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
[2020-08-14] MEDS ORDERED: KETOROLAC 30 MG/ML INJ ONE (00:43)
[2020-08-14 03:16] VITALS: BP 117/85; TEMP 97.8; O2SAT 99
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
== END 2020-08-14 00:44 | disposition home or self-care (01) ==
LOC: ER 21:22
DX: S10.93XA Contusion of unspecified part of neck, initial encounter (principal); S40.012A Contusion of left shoulder, initial encounter; V27.4XXA Motorcycle driver injured in collision with fixed or stationary object in traffic accident, initial encounter; Z88.1 Allergy status to other antibiotic agents; Z88.5 Allergy status to narcotic agent; Z88.8 Allergy status to other drugs, medicaments and biological substances; Z91.040 Latex allergy status; Z91.048 Other nonmedicinal substance allergy status
CPT/HCPCS: 85025; 80048; 36415; 70450; 71250; 72125; 71045; 73030; J2405 ×2; 99285; G0390

== ENCOUNTER 2020-08-27 07:36 | Emergency (ER) | payer MEDICAID ==
--- OUTSIDE RECORDS SUMMARY | 2020-08-27 07:38 | XMS REPORT | Continuity of Care Document ---
:1995 Author Organization [facility] t Address [address] [place] [address] Care Team Providers Name Role Phone Patrice FELIX, S Attending Clinician Delroy FELIX, K.H. Attending Clinician Doctor Unassigned, Name Attending Clinician Unavailable Problems This patient has no known problems. Allergies, Adverse Reactions, Alerts This patient has no known allergies or adverse reactions. Medications This patient has no known medications. Procedures This patient has no known procedures. Encounters Start End Encounter Admission Attending Care Care Encounter Source Date/Time Date/Time Type Type Clinicians Facility Department ID 2020-08-18 2020-08-18 Emergency [place] [id number] 20:01:00 23:06:00 Lewis Richards [id number] [place] [id number] [place] [id number] 2020-06-16 2020-06-16 Office Delroy GADAISY [id number] 14:02:17 14:47:54 Visit [facility] [place] [id number] [facility] [id number] [address] 2020-06-16 2020-06-16 Orders Doctor ORTEGA [id number] 00:00:00 00:00:00 Only UnassignedYAZMIN [id number] [place] [id number] [id number] Results This patient has no known results.
[2020-08-27] MEDS ORDERED: NA CHLORIDE 0.9% 1,000 ML ONE (08:15)
[2020-08-27] MEDS ORDERED: ONDANSETRON 4 MG/2 ML VIAL ONE ×2 (08:15→09:32)
[2020-08-27] MEDS ORDERED: MORPHINE 2 MG/ML SYR ONE ×2 (08:15→09:09)
[2020-08-27 08:37] LABS: Absolute Lymphocytes (CBC) 1.4 K/uL (0.7-4.9); Basophils % 0.7 % (0-1.3); Hematocrit 39.3 % (36.0-45.0); MPV 8.4 fL (7.6-11.3); RBC Red Blood Cell Count 4.58 M/uL (3.86-4.86)
[2020-08-27 08:54] LABS: ALT/SGPT 22 U/L (12-78); AST/SGOT 18 U/L (15-37); Albumin 3.7 g/dL (3.4-5.0); Alkaline Phosphatase 80 U/L (45-117); BUN Blood Urea Nitrogen 7 mg/dL (7-18); Bicarbonate 21 mmol/L (21-32); Bilirubin Direct 0.1 mg/dL (0-0.2); Bilirubin Total 0.5 mg/dL (0.2-1.0); Glucose Level 109 mg/dL (74-106); Lipase 69 U/L (73-393); Potassium 3.6 mmol/L (3.5-5.1); Sodium Level 137 mmol/L (136-145)
--- NOTE | 2020-08-27 08:59 | RAD REPORT ---
EXAM DESCRIPTION: CT - Abdomen Pelvis W Contrast - 08/27/2020 8:28 am CLINICAL HISTORY: ABD PAIN COMPARISON: CT abdomen and pelvis August 02 TECHNIQUE: Biphasic, helical CT imaging of the abdomen and pelvis was performed following 100 ml non -ionic IV contrast. No oral contrast administered. All CT scans are performed using dose optimization technique as appropriate and may include automated exposure control or mA/KV adjustment according to patient size. FINDINGS: No suspicious findings in the lung bases. The liver, spleen, and pancreas show no suspicious findings. Gallbladder and biliary tree are also wi thout suspicious finding. Symmetric renal function is seen with no hydronephrosis or suspicious renal mass. No pyelonephritis o r acute parenchymal process. Slight fullness of each collecting system matches prior imaging. Patient has punctate nonobstructing calyx calculi. No adrenal abnormalities. No urinary bladder abnormality. Uterus and left ovary show no suspicious findings. There is a 2 centimeter partially involuted cyst o r ruptured follicle. Trace amount of fluid in stranding are seen in the right lower quadrant. No dilated bowel loops or bowel wall thickening. Appendix is normal. No free air or pneumatosis. Trac e free fluid in the cul de sac is physiologic in quantity. No hernia, mass or bulky lymphadenopathy. No suspicious bony findings. IMPRESSION: Approximately 2 centimeter sized ruptured follicle or leaking ovarian cyst noted. Trace amount of fluid in stranding are seen in the right lower quadrant. This is the likely source for pain . The appendix is normal. No hydronephrosis or obstructing calculus.
--- NOTE | 2020-08-27 09:01 | EDPHYS ---
Physician Documentation [facility] Name: Natanael Dyson Age: 25 yrs Sex: Female : 1995 Arrival Date: 08/27/2020 Time: 07:38 Bed 8 Private MD: ED Physician Justin Estrella HPI: 08/27 08:20 This 25 yrs old Female presents to ER via EMS with complaints of Abdominal rudolph Pain. 08:20 The patient presents with abdominal pain right lower quadrant. Onset: The rudolph symptoms/episode began/occurred this morning. The symptoms do not radiate. Associated signs and symptoms: none. The symptoms are described as constant, crampy. Modifying factors: The symptoms are alleviated by nothing, the symptoms are aggravated by nothing. Severity of pain: At its worst the pain was mild moderate in the emergency department the pain is unchanged. The patient has not experienced similar symptoms in the past. 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 - Social history:: Smoking status: Patient denies any tobacco usage or history of. - Family history:: not pertinent. ROS: 08:20 Constitutional: Negative for fever, chills, and weight loss, Eyes: Negative for injury, rudolph pain, redness, and discharge, ENT: Negative for injury, pain, and discharge, Neck: Negative for injury, pain, and swelling, Cardiovascular: Negative for chest pain, palpitations, and edema, Respiratory: Negative for shortness of breath, cough, wheezing, and pleuritic chest pain, Back: Negative for injury and pain, : Negative for injury, bleeding, discharge, and swelling, MS/Extremity: Negative for injury and deformity, Skin: Negative for injury, rash, and discoloration, Neuro: Negative for headache, weakness, numbness, tingling, and seizure, Psych: Negative for depression, anxiety, suicide ideation, homicidal ideation, and hallucinations, Allergy/Immunology: Negative for hives, rash, and allergies, Endocrine: Negative for neck swelling, polydipsia, polyuria, polyphagia, and marked weight changes, Hematologic/Lymphatic: Negative for swollen nodes, abnormal bleeding, and unusual bruising. 08:20 Abdomen/GI: Positive for abdominal pain, of the right lower quadrant. Exam: 08:20 Constitutional: This is a well developed, well nourished patient who is awake, alert, rudolph and in no acute distress. Head/Face: Normocephalic, atraumatic. Eyes: Pupils equal round and reactive to light, extra-ocular motions intact. Lids and lashes normal. Conjunctiva and sclera are non-icteric and not injected. Cornea within normal limits. Periorbital areas with no swelling, redness, or edema. ENT: Nares patent. No nasal discharge, no septal abnormalities noted. Tympanic membranes are normal and external auditory canals are clear. Oropharynx with no redness, swelling, or masses, exudates, or evidence of obstruction, uvula midline. Mucous membranes moist. Neck: Trachea midline, no thyromegaly or masses palpated, and no cervical lymphadenopathy. Supple, full range of motion without nuchal rigidity, or vertebral point tenderness. No Meningismus. Chest/axilla: Normal chest wall appearance and motion. Nontender with no deformity. No lesions are appreciated. Cardiovascular: Regular rate and rhythm with a normal S1 and S2. No gallops, murmurs, or rubs. Normal PMI, no JVD. No pulse deficits. Respiratory: Lungs have equal breath sounds bilaterally, clear to auscultation and percussion. No rales, rhonchi or wheezes noted. No increased work of breathing, no retractions or nasal flaring. Back: No spinal tenderness. No costovertebral tenderness. Full range of motion. Skin: Warm, dry with normal turgor. Normal color with no rashes, no lesions, and no evidence of cellulitis. MS/ Extremity: Pulses equal, no cyanosis. Neurovascular intact. Full, normal range of motion. Neuro: Awake and alert, GCS 15, oriented to person, place, time, and situation. Cranial nerves II-XII grossly intact. Motor strength 5/5 in all extremities. Sensory grossly intact. Cerebellar exam normal. Normal gait. Psych: Awake, alert, with orientation to person, place and time. Behavior, mood, and affect are within normal limits. 08:20 Abdomen/GI: Inspection: abdomen appears normal, Bowel sounds: normal, Palpation: moderate abdominal tenderness, in the right lower quadrant, Liver: no appreciated palpable abnormalities, Hernia: not appreciated. Vital Signs: 07:39 BP 121 / 83; Pulse 110; Resp 19 S; Temp 98.3(O); Pulse Ox 100% on R/A; Weight 58.97 kg jl7 (R); Height 5 ft. 1 in. (154.94 cm) (R); Pain 9/10; 08:50 BP 127 / 80; Pulse 85; Resp 15; Pulse Ox 100% ; Pain 8/10; jl7 07:39 Body Mass Index 24.56 (58.97 kg, 154.94 cm) jl7 MDM: 07:39 Patient medically screened. [facility] 08:24 Differential diagnosis: cholecystitis, Cholelithiasis, non-specific abd pain, rudolph pancreatitis, Ureterolithiasis, urinary tract infection. Data reviewed: vital signs, nurses notes, lab test result(s), radiologic studies, CT scan. Data interpreted: phototypesetting equipment monitor: not applicable for this patient encounter. rate is 110 beats/min, rhythm is regular. Counseling: I had a detailed discussion with the patient and/or guardian regarding: the historical points, exam findings, and any diagnostic results supporting the discharge/admit diagnosis, lab results, radiology results. 08/27 07:52 Order name: Basic Metabolic Panel [facility] 08/27 07:52 Order name: CBC with Diff; Complete Time: 08:53 [facility] 08/27 07:52 Order name: Hepatic Function; Complete Time: 08:58 [facility] 08/27 07:52 Order name: Lipase; Complete Time: 08:58 [facility] 08/27 07:52 Order name: Basic Metabolic Panel; Complete Time: 08:58 [facility] 08/27 07:52 Order name: CT Abd/Pelvis - IV Contrast Only [facility] 08/27 08:44 Order name: Urine --Ancillary (enter results) 08/27 08:45 Order name: Urine --Ancillary [facility] 08/27 07:52 Order name: IV Saline Lock; Complete Time: 08:24 [facility] 08/27 07:52 Order name: Labs collected and sent; Complete Time: 08:24 [facility] 08/27 07:52 Order name: Urine Dipstick-Ancillary (obtain specimen); Complete Time: 08:24 [facility] 08/27 07:52 Order name: Urine Test (obtain specimen); Complete Time: 08:24 [facility] Administered Medications: 08:10 Drug: NS 0.9% 1000 ml Route: IV; Rate: 1 bolus; Site: right hand; jl7 09:30 Follow up: IV Status: Completed infusion; IV Intake: 150ml jl7 08:10 Drug: Zofran (Ondansetron) 4 mg Route: IVP; Site: right hand; jl7 08:30 Follow up: Response: No adverse reaction; Nausea is decreased jl7 08:12 Drug: morphine 2 mg Route: IVP; Site: right hand; jl7 08:20 Follow up: Response: No adverse reaction; Pain is decreased jl7 08:50 Drug: morphine 2 mg Route: IVP; Site: right hand; jl7 09:00 Follow up: Response: No adverse reaction; Pain is decreased jl7 09:15 Drug: Zofran (Ondansetron) 4 mg Route: IVP; Site: right hand; jl7 09:20 Follow up: Response: No adverse reaction; Nausea is decreased jl7 09:17 Drug: Ketorolac 30 mg Route: IVP; Site: right hand; jl7 09:25 Follow up: Response: No adverse reaction; Pain is decreased jl7 Disposition: 08/27/20 09:01 Discharged to Home. Impression: Abdominal tenderness, Other ovarian cysts - RUPTURED OVARIAN CYST, 2 CM. - Condition is Stable. - Discharge Instructions: Abdominal Pain, Adult, Ovarian Cyst, Abdominal Pain, Adult, [id number], Ovarian Cyst, [id number]-kr-Ylaz. - Prescriptions for Bentyl 20 mg Oral Tablet - take 1 tablet by ORAL route every 6 hours As needed; 20 tablet. Zofran 4 mg Oral Tablet - take 1 tablet by ORAL route every 12 hours As needed; 20 tablet. Ibuprofen 600 mg Oral Tablet - take 1 tablet by ORAL route every 8 hours As needed take with food; 21 tablet. - Medication Reconciliation Form, Thank You Letter, Antibiotic Education, Prescription Opioid Use, Work release form form. - Follow up: Private Physician; When: 2 - 3 days; Reason: Recheck today's complaints, Continuance of care, Re-evaluation by your physician. Follow up: ; When: 2 - 3 days; Reason: Recheck today's complaints, Re-evaluation by your physician. Follow up: [facility]; When: 2 - 3 days; Reason: Recheck today's complaints, Re-evaluation by your physician. - Problem is new. - Symptoms have improved. Signatures: Dispatcher [employer] EDJustin Camacho MD MD cha Leal, Jahala RN RN jl7 Corrections: (The following items were deleted from the chart) 09:01 09:01 08/27/2020 09:01 Discharged to Home. Impression: Abdominal tenderness; Other rudolph ovarian cysts - RUPTURED OVARIAN CYST, 2 CM. Condition is Stable. Discharge Instructions: Abdominal Pain, Adult, Ovarian Cyst, Abdominal Pain, Adult, Kkmh-[id number]-Culg, Ovarian Cyst, [id number]. Prescriptions for Bentyl 20 mg Oral Tablet - take 1 tablet by ORAL route every 6 hours As needed; 20 tablet, Zofran 4 mg Oral Tablet - take 1 tablet by ORAL route every 12 hours As needed; 20 tablet. and Forms are Medication Reconciliation Form, Thank You Letter, Antibiotic Education, Prescription Opioid Use. Follow up: Private Physician; When: 2 - 3 days; Reason: Recheck today's complaints, Continuance of care, Re-evaluation by your physician. Follow up: [place] [facility]; When: 2 - 3 days; Reason: Recheck today's complaints, Re-evaluation by your physician. Follow up: [facility]; When: 2 - 3 days; Reason: Recheck today's complaints, Re-evaluation by your physician. Problem is new. Symptoms have improved. [facility] 09:32 09:01 08/27/2020 09:01 Discharged to Home. Impression: Abdominal tenderness; Other jl7 ovarian cysts - RUPTURED OVARIAN CYST, 2 CM. Condition is Stable. Discharge Instructions: Abdominal Pain, Adult, Ovarian Cyst, Abdominal Pain, Adult, [id number], Ovarian Cyst, Mjha-mt-Apec. Prescriptions for Bentyl 20 mg Oral Tablet - take 1 tablet by ORAL route every 6 hours As needed; 20 tablet, Zofran 4 mg Oral Tablet - take 1 tablet by ORAL route every 12 hours As needed; 20 tablet. and Forms are Medication Reconciliation Form, Thank You Letter, Antibiotic Education, Prescription Opioid Use. Follow up: Private Physician; When: 2 - 3 days; Reason: Recheck today's complaints, Continuance of care, Re-evaluation by your physician. Follow up: [facility]; When: 2 - 3 days; Reason: Recheck today's complaints, Re-evaluation by your physician. Problem is new. Symptoms have improved. rudolph
--- NOTE | 2020-08-27 09:01 | ER ---
Nurse's Notes [facility] Name: Natanael Dyson Age: 25 yrs Sex: Female : 1995 Arrival Date: 08/27/2020 Time: 07:38 Bed 8 Private MD: Diagnosis: Abdominal tenderness;Other ovarian cysts-RUPTURED OVARIAN CYST, 2 CM Presentation: 08/27 07:38 Chief complaint: EMS states: RLQ abd pain since 0400, N/V, denies diarrhea, gave 1 G jl7 Tylenol IV, no improvement in pain. 07:39 Coronavirus screen: Client denies travel out of the [place] in the last 14 days. At this jl7 time, the client does not indicate any symptoms associated with coronavirus-19. Ebola Screen: No symptoms or risks identified at this time. Initial Sepsis Screen: Does the patient meet any 2 criteria? No. Patient's initial sepsis screen is negative. Does the patient have a suspected source of infection? No. Patient's initial sepsis screen is negative. Risk Assessment: Do you want to hurt yourself or someone else? Patient reports no desire to harm self or others. Onset of symptoms was August 27, 2020 at 04:00. Care prior to arrival: Medication(s) given: Tylenol, 1000 mg, IVP IV initiated. 22 GA, in the right hand. 07:39 Method Of Arrival: EMS: [facility] 7 07:39 Acuity: THIERNO 3 jl7 Triage Assessment: 07:44 General: Appears in no apparent distress. uncomfortable, ill, Behavior is calm, jl7 cooperative, appropriate for age, crying. Pain: Complains of pain in right lower quadrant Pain does not radiate. Pain currently is 9 out of 10 on a pain scale. Quality of pain is described as sharp, Pain began 4 hours ago. Is continuous. Neuro: Level of Consciousness is awake, alert, obeys commands, Oriented to person, place, time, situation. Cardiovascular: Patient's skin is warm and dry. Respiratory: Airway is patent Respiratory effort is even, unlabored, Respiratory pattern is regular, symmetrical. GI: Abdomen is non-distended, Stools are reported to be normal. Abd is soft X 4 quads Abdomen is tender to palpation in right lower quadrant Guarding noted in right lower quadrant Reports nausea, vomiting, Patient currently denies diarrhea. : No signs and/or symptoms were reported regarding the genitourinary system. Derm: Skin is pink, warm \T\ dry. 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 - Social history:: Smoking status: Patient denies any tobacco usage or history of. - Family history:: not pertinent. Screenin:46 Abuse screen: Denies threats or abuse. Denies injuries from another. Nutritional jl7 screening: No deficits noted. Tuberculosis screening: No symptoms or risk factors identified. Fall Risk IV access (20 points). Total Thomas Fall Scale indicates No Risk (0-24 pts). Assessment: 07:46 General: See triage assessment. 7 09:00 Reassessment: Patient appears in no apparent distress at this time. Patient and/or jl7 family updated on plan of care and expected duration. Pain level reassessed. Patient is alert, oriented x 3, equal unlabored respirations, skin warm/dry/pink. Pt reports increased pain, medicated as ordered. 09:10 Reassessment: Dr. Estrella at bedside discussing results and POC. [facility] 09:30 Reassessment: At discharge pt's IV site noted to be cold to touch and minimally jl7 swollen, fluids flowing at a slow rate, IV flushed easily with 10 mL NS, no additional swelling noted. Provided pt with warm compress to area upon discontinuing the IV and discharging pt. Vital Signs: 07:39 BP 121 / 83; Pulse 110; Resp 19 S; Temp 98.3(O); Pulse Ox 100% on R/A; Weight 58.97 kg jl7 (R); Height 5 ft. 1 in. (154.94 cm) (R); Pain 9/10; 08:50 BP 127 / 80; Pulse 85; Resp 15; Pulse Ox 100% ; Pain 8/10; jl7 07:39 Body Mass Index 24.56 (58.97 kg, 154.94 cm) jl7 ED Course: 07:38 Patient arrived in ED. jl7 07:38 Justin Estrella MD is Attending Physician. rudolph 07:39 Matty Bee RN is Primary Nurse. jl7 07:42 Triage completed. jl7 07:44 Arm band placed on right wrist. jl7 07:46 Patient has correct armband on for positive identification. Bed in low position. Call jl7 light in reach. Side rails up X 1. Pulse ox on. NIBP on. 08:10 Missed attempt(s): 22 gauge in right forearm. Bleeding controlled, band aid applied, jl7 catheter tip intact. 08:15 Maintain EMS IV. Dressing intact. Good blood return noted. Site clean \T\ dry. Gauge \T\ jl 7 site: 22 right hand. 08:15 Initial lab(s) drawn, by me, sent to lab. COVID swab sent to lab. jl7 08:28 CT Abd/Pelvis - IV Contrast Only In Process Unspecified. EDMS 09:00 Rome Win MD is Referral Physician. rudolph 09:00 Emerson Field MD is Referral Physician. rudolph 09:01 Referral Physician role handed off by Rome Win MD rudolph 09:31 No provider procedures requiring assistance completed. IV discontinued, intact, jl7 bleeding controlled, No redness/swelling at site. Pressure dressing applied. Administered Medications: 08:10 Drug: NS 0.9% 1000 ml Route: IV; Rate: 1 bolus; Site: right hand; jl7 09:30 Follow up: IV Status: Completed infusion; IV Intake: 150ml jl7 08:10 Drug: Zofran (Ondansetron) 4 mg Route: IVP; Site: right hand; jl7 08:30 Follow up: Response: No adverse reaction; Nausea is decreased jl7 08:12 Drug: morphine 2 mg Route: IVP; Site: right hand; jl7 08:20 Follow up: Response: No adverse reaction; Pain is decreased jl7 08:50 Drug: morphine 2 mg Route: IVP; Site: right hand; jl7 09:00 Follow up: Response: No adverse reaction; Pain is decreased jl7 09:15 Drug: Zofran (Ondansetron) 4 mg Route: IVP; Site: right hand; jl7 09:20 Follow up: Response: No adverse reaction; Nausea is decreased jl7 09:17 Drug: Ketorolac 30 mg Route: IVP; Site: right hand; jl7 09:25 Follow up: Response: No adverse reaction; Pain is decreased jl7 Intake: 09:30 IV: 150ml; Total: 150ml. jl7 Outcome: 09:01 Discharge ordered by . rudolph 09:32 Discharged to home ambulatory, with family. :32 Condition: stable 09:32 Discharge instructions given to patient, Instructed on discharge instructions, follow up and referral plans. medication usage, Demonstrated understanding of instructions, follow-up care, medications, Prescriptions given X 3. 09:32 Patient left the ED. jl7 Signatures: Dispatcher [employer] EDMS Justin Estrella MD MD cha Leal, Jahala RN RN jl7 Corrections: (The following items were deleted from the chart) 09:32 08:15 Discharged to home ambulatory, with family, jl7 jl7 09:32 08:15 Condition: stable [facility] jl :32 08:15 Discharge instructions given to patient, Instructed on discharge instructions, jl7 follow up and referral plans. medication usage, Demonstrated understanding of instructions, follow-up care, medications, Prescriptions given X 3, jl7
[2020-08-27] MEDS ORDERED: KETOROLAC 30 MG/ML INJ ONE (09:32)
[2020-08-27 09:38] VITALS: TEMP 98.3; O2SAT 100
[2020-08-27 09:39] VITALS: BP 127/80
[2020-08-31 16:55] LABS: Urine Blood TRACE (Negative); Urine Glucose NEGATIVE (Negative); Urine Protein NEGATIVE (Negative)
== END 2020-08-27 09:32 | disposition home or self-care (01) ==
LOC: ER 07:36
DX: N83.209 Unspecified ovarian cyst, unspecified side (principal); J45.909 Unspecified asthma, uncomplicated; Z20.822 Contact with and (suspected) exposure to COVID-19
CPT/HCPCS: 85025; 80048; 36415; 81025; 80076; 83690; 74177; U0003; Q9967; J2270 ×2; J7030; J2405 ×2; 81003; 96361; 96374; 96375; 99284

== ENCOUNTER 2020-10-14 11:51 | Emergency (ER) | payer MEDICAID ==
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
[2020-10-14 13:07] LABS: Urine Blood Trace-intact (Negative); Urine Glucose Negative (Negative); Urine Protein Negative (Negative); Urine Specific Gravity 1.015 (1.005-1.030)
[2020-10-14 14:01] LABS: Urine Specific Gravity/Preg 1.015 (1.005-1.030)
[2020-10-14 14:44] LABS: Absolute Lymphocytes (CBC) 2.4 K/uL (0.7-4.9); Basophils % 0.8 % (0-1.3); Hematocrit 42.7 % (36.0-45.0); Lymphocytes % 22.5 % (15.3-44.8); MPV 7.8 fL (7.6-11.3); RBC Red Blood Cell Count 4.96 M/uL (3.86-4.86)
[2020-10-14] MEDS ORDERED: MORPHINE 4 MG/ML SYR ONE ×4 (14:45→19:47)
[2020-10-14] MEDS ORDERED: ONDANSETRON 4 MG/2 ML VIAL ONE ×2 (14:45→16:16)
[2020-10-14] MEDS ORDERED: NA CHLORIDE 0.9% 1,000 ML ONE (14:45)
[2020-10-14] MEDS ORDERED: PROMETHAZINE INJ 25 MG/ML AMP ONE ×2 (15:14→17:27)
[2020-10-14 15:58] LABS: ALT/SGPT 47 U/L (12-78); AST/SGOT 25 U/L (15-37); Albumin 3.7 g/dL (3.4-5.0); Alkaline Phosphatase 101 U/L (45-117); BUN Blood Urea Nitrogen 9 mg/dL (7-18); Bicarbonate 20 mmol/L (21-32); Bilirubin Direct 0.1 mg/dL (0-0.2); Bilirubin Total 0.6 mg/dL (0.2-1.0); Glucose Level 92 mg/dL (74-106); Lipase 58 U/L (73-393); Potassium 3.8 mmol/L (3.5-5.1); Protein, Total 7.6 g/dL (6.4-8.2); Sodium Level 141 mmol/L (136-145)
--- NOTE | 2020-10-14 17:17 | RAD REPORT ---
EXAM DESCRIPTION: CT - Abdomen Pelvis W Contrast - 10/14/2020 4:55 pm CLINICAL HISTORY: Abdominal pain. COMPARISON: August 2020 TECHNIQUE: Computed axial tomography of the abdomen and pelvis was obtained. 100 cc Isovue-300 is ad ministered intravenously. Oral contrast was given. All CT scans are performed using dose optimization technique as appropriate and may include automated exposure control or mA/KV adjustment according to patient size. FINDINGS: The liver, spleen, pancreas, and adrenals appear unremarkable. Punctate bilateral renal calculi. No hydronephrosis. The appendix is normal caliber. There is no evidence of diverticulitis No adnexal mass. Small umbilical hernia IMPRESSION: No acute abnormality displayed
--- NOTE | 2020-10-14 18:42 | RAD REPORT ---
EXAM DESCRIPTION: US - Transvaginal Study Probe - 10/14/2020 6:25 pm CLINICAL HISTORY: Pelvic pain COMPARISON: CT October 14, 2020 FINDINGS: The uterus measures 9 x 4 x 5cm. A fibroid is not seen. The endometrial stripe measures 8 millimeters. Nabothian cyst within cervix The ovaries are normal in size and echotexture. Blood flow within each ovary The right and left adnexal unremarkable No significant free fluid is seen. IMPRESSION: Unremarkable pelvic ultrasound
--- NOTE | 2020-10-14 19:19 | ER ---
Nurse's Notes [facility] Name: Natanael Dyson Age: 25 yrs Sex: Female : 1995 Arrival Date: 10/14/2020 Time: 11:53 Bed External Waiting [facility] MD: Diagnosis: Abdominal and pelvic pain Presentation: 10/14 12:56 Chief complaint: Patient states: "I have been feeling. at first I thought it was a jd3 stomach bug, but my left side of my stomach is hurting and I started running a fever.". Coronavirus screen: At this time, the client does not indicate any symptoms associated with coronavirus-19. Ebola Screen: Patient negative for fever greater than or equal to 101.5 degrees Fahrenheit, and additional compatible Ebola Virus Disease symptoms. Initial Sepsis Screen: Does the patient meet any 2 criteria? No. Patient's initial sepsis screen is negative. Does the patient have a suspected source of infection? No. Patient's initial sepsis screen is negative. Risk Assessment: Do you want to hurt yourself or someone else? Patient reports no desire to harm self or others. Onset of symptoms was October 11, 2020. 12:56 Method Of Arrival: Ambulatory jd3 12:56 Acuity: THIERNO 3 jd3 12:58 Note Zofran and Tylenol at 0800. 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 - Social history:: Smoking status: Patient denies any tobacco usage or history of. Screenin:02 Abuse screen: Denies threats or abuse. Denies injuries from another. Nutritional ld1 screening: No deficits noted. Tuberculosis screening: No symptoms or risk factors identified. Fall Risk None identified. Assessment: 14:02 General: Appears in no apparent distress. uncomfortable, Behavior is calm, cooperative, ld1 appropriate for age. Pain: Complains of pain in right lower quadrant Pain does not radiate. Pain currently is 9 out of 10 on a pain scale. Quality of pain is described as "tight like a rubber band." Pain began Is continuous. Neuro: Level of Consciousness is awake, alert, obeys commands, Oriented to person, place, time, situation, Appropriate for age. Cardiovascular: Capillary refill < 3 seconds Patient's skin is warm and dry. Respiratory: Airway is patent Respiratory effort is even, unlabored, Respiratory pattern is regular, symmetrical. GI: Abdomen is flat, non-distended, Pt is actively vomiting clear fluid, Bowel sounds present X 4 quads. Abd is soft Abdomen is tender to palpation in right lower quadrant Reports nausea, vomiting, since 10/11/2020. : No signs and/or symptoms were reported regarding the genitourinary system. EENT: No signs and/or symptoms were reported regarding the EENT system. Derm: No signs and/or symptoms reported regarding the dermatologic system. Musculoskeletal: No signs and/or symptoms reported regarding the musculoskeletal system. 15:15 Reassessment: Patient appears in no apparent distress at this time. No changes from ld1 previously documented assessment. Patient and/or family updated on plan of care and expected duration. Pain level reassessed. Waiting on results in bed. RR 18. 16:37 Reassessment: Patient appears in no apparent distress at this time. No changes from ld1 previously documented assessment. Patient and/or family updated on plan of care and expected duration. Pain level reassessed. 17:45 Reassessment: Patient appears in no apparent distress at this time. No changes from ld1 previously documented assessment. Patient and/or family updated on plan of care and expected duration. Pain level reassessed. Patient is alert, oriented x 3, equal unlabored respirations, skin warm/dry/pink. 18:19 Reassessment: No changes from previously documented assessment. Patient and/or family ld1 updated on plan of care and expected duration. Pain level reassessed. Ultrasound at bedside. Denies concerns at this time. Vital Signs: 12:58 BP 131 / 104; Pulse 106; Resp 18 S; Temp 97.7(TE); Pulse Ox 100% on R/A; Weight 63.5 kg jd3 (R); Height 5 ft. 1 in. (154.94 cm) (R); Pain 7/10; 14:02 BP 133 / 85; Pulse 99; Resp 18; Temp 98.1(O); Pulse Ox 100% on R/A; Weight 63.5 kg; ld1 Height 5 ft. 2 in. (157.48 cm); Pain 9/10; 15:30 BP 116 / 96; Pulse 58; Resp 18; Pulse Ox 100% on R/A; ld1 16:45 BP 126 / 84; Pulse 82; Resp 18; Pulse Ox 100% on R/A; ld1 17:30 BP 133 / 85; Pulse 66; Resp 18; Pulse Ox 100% on R/A; ld1 18:20 BP 125 / 88; Pulse 84; Resp 18; Pulse Ox 100% on R/A; ld1 14:02 Body Mass Index 25.60 (63.50 kg, 157.48 cm) ld1 ED Course: 11:53 Patient arrived in ED. ds1 12:57 Triage completed. jd3 12:58 Arm band placed on. jd3 13:53 Asad Estevez PA is PHCP. jr8 13:53 Miquel Rios MD is Attending Physician. jr8 14:02 Kellie Hernandez, RN is Primary Nurse. ld1 14:02 Patient has correct armband on for positive identification. Placed in gown. Bed in low ld1 position. Call light in reach. Side rails up X2. Pulse ox on. NIBP on. 14:30 Accessed ,peripheral vein via ultrasound, utilizing static ultrasound technique using sv 20G Nexia IV catheter Clean \\T\\ dry. Dressing intact. Good blood return. Flushes easily. 14:42 Lipase Sent. sv 14:42 Hepatic Function Sent. sv 14:42 CBC with Diff Sent. sv 14:42 Basic Metabolic Panel Sent. sv 14:45 Awaiting lab results. sv 16:55 CT Abd/Pelvis - PO and IV Contrast In Process Unspecified. EDMS 18:25 US Transvaginal Study (Probe) In Process Unspecified. EDMS 19:27 Primary Nurse role handed off by Kellie Hernandez, RN eb Administered Medications: 14:42 Drug: NS 0.9% 1000 ml Route: IV; Rate: 1000 ml; Site: left antecubital; ld1 15:16 Follow up: Response: No adverse reaction; IV Status: Completed infusion ld1 14:43 Drug: Zofran (Ondansetron) 4 mg Route: IVP; Site: left antecubital; ld1 15:16 Follow up: Response: No adverse reaction ld1 14:43 Drug: morphine 4 mg Route: IVP; Site: left antecubital; ld1 15:00 Follow up: Response: No adverse reaction ld1 15:59 Drug: Zofran (Ondansetron) 4 mg Route: IVP; Site: left antecubital; ld1 15:59 Follow up: Response: No adverse reaction ld1 16:30 Follow up: Response: No adverse reaction ld1 16:00 Drug: morphine 4 mg Route: IVP; Site: left antecubital; ld1 16:30 Follow up: Response: No adverse reaction ld1 17:28 Drug: Promethazine 12.5 mg Route: IVP; Site: left antecubital; ld1 18:17 Follow up: Response: No adverse reaction ld1 18:14 Drug: morphine 4 mg Route: IVP; Site: left antecubital; ld1 19:37 Drug: morphine 4 mg Route: IVP; Site: left antecubital; ak2 Outcome: 19:19 Discharge ordered by MD. montemayor 19:37 Discharged to home ambulatory. ak2 19:37 Condition: good 19:37 Discharge instructions given to patient. 19:38 Patient left the ED. ak2 Signatures: Dispatcher [employer] EDMS Anusha Tobin RN RN sv Sanford, Demi ds1 Roszak, Josh, PA PA jr8 Davies, Jonathon, RN RN jd3 Botello, Elizabeth eb Dibbern, Lauren, RN RN ld1 Charanjit Wolf ak2
--- NOTE | 2020-10-14 19:20 | EDPHYS ---
Physician Documentation [facility] Name: Natanael Dyson Age: 25 yrs Sex: Female : 1995 Arrival Date: 10/14/2020 Time: 11:53 Bed External Waiting Private MD: ED Physician Miquel Rios HPI: 10/14 14:39 This 25 yrs old Female presents to ER via Ambulatory with complaints of jr8 Abdominal pain, Nausea. 14:39 The patient presents with abdominal pain right lower quadrant. Onset: The jr8 symptoms/episode began/occurred suddenly, 3 day(s) ago, and became worse and became persistent. The symptoms do not radiate. Associated signs and symptoms: Pertinent positives: nausea and vomiting, fever. The symptoms are described as shooting, stabbing. Modifying factors: The symptoms are alleviated by nothing, the symptoms are aggravated by movement, pressure. Severity of pain: At its worst the pain was moderate in the emergency department the pain is unchanged. The patient has not experienced similar symptoms in the past. The patient has not recently seen a physician. 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 - Social history:: Smoking status: Patient denies any tobacco usage or history of. ROS: 14:39 Eyes: Negative for injury, pain, redness, and discharge, ENT: Negative for injury, jr8 pain, and discharge, Neck: Negative for injury, pain, and swelling, Cardiovascular: Negative for chest pain, palpitations, and edema, Respiratory: Negative for shortness of breath, cough, wheezing, and pleuritic chest pain, Back: Negative for injury and pain, MS/Extremity: Negative for injury and deformity, Skin: Negative for injury, rash, and discoloration, Neuro: Negative for headache, weakness, numbness, tingling, and seizure. 14:39 Abdomen/GI: Positive for abdominal pain, nausea and vomiting, Negative for diarrhea, constipation, abdominal cramps, abdominal distension, hematemesis, black/tarry stool, rectal pain, rectal bleeding, bowel incontinence, flatulence. Exam: 14:39 Cardiovascular: Regular rate and rhythm with a normal S1 and S2. No gallops, murmurs, jr8 or rubs. Normal PMI, no JVD. No pulse deficits. Respiratory: Lungs have equal breath sounds bilaterally, clear to auscultation and percussion. No rales, rhonchi or wheezes noted. No increased work of breathing, no retractions or nasal flaring. Back: No spinal tenderness. No costovertebral tenderness. Full range of motion. Skin: Warm, dry with normal turgor. Normal color with no rashes, no lesions, and no evidence of cellulitis. MS/ Extremity: Pulses equal, no cyanosis. Neurovascular intact. Full, normal range of motion. Neuro: Awake and alert, GCS 15, oriented to person, place, time, and situation. Cranial nerves II-XII grossly intact. Motor strength 5/5 in all extremities. Sensory grossly intact. 14:39 Constitutional: The patient appears alert, awake, in obvious pain. 14:39 Abdomen/GI: Inspection: abdomen appears normal, Bowel sounds: active, all quadrants, Palpation: soft, in all quadrants, moderate abdominal tenderness, in the right lower quadrant, mass, is not appreciated, rebound tenderness, is not appreciated, voluntary guarding, is elicited in the right lower quadrant, involuntary guarding, is elicited in the right lower quadrant, no appreciated organomegaly, Indicators: McBurney's point is tender, Ayoub's sign is negative, Rovsing's sign is positive, Obturator sign is positive, Psoas sign is positive, Liver: tenderness, is not appreciated. Vital Signs: 12:58 BP 131 / 104; Pulse 106; Resp 18 S; Temp 97.7(TE); Pulse Ox 100% on R/A; Weight 63.5 kg jd3 (R); Height 5 ft. 1 in. (154.94 cm) (R); Pain 7/10; 14:02 BP 133 / 85; Pulse 99; Resp 18; Temp 98.1(O); Pulse Ox 100% on R/A; Weight 63.5 kg; ld1 Height 5 ft. 2 in. (157.48 cm); Pain 9/10; 15:30 BP 116 / 96; Pulse 58; Resp 18; Pulse Ox 100% on R/A; ld1 16:45 BP 126 / 84; Pulse 82; Resp 18; Pulse Ox 100% on R/A; ld1 17:30 BP 133 / 85; Pulse 66; Resp 18; Pulse Ox 100% on R/A; ld1 18:20 BP 125 / 88; Pulse 84; Resp 18; Pulse Ox 100% on R/A; ld1 14:02 Body Mass Index 25.60 (63.50 kg, 157.48 cm) ld1 MDM: 13:53 Patient medically screened. jr8 18:45 Data reviewed: vital signs, nurses notes, lab test result(s), radiologic studies, CT jr8 scan, ultrasound. Data interpreted: Pulse oximetry: on room air is 100 %. Interpretation: normal. Counseling: I had a detailed discussion with the patient and/or guardian regarding: the historical points, exam findings, and any diagnostic results supporting the discharge/admit diagnosis, lab results, radiology results, the need for outpatient follow up, a family practitioner, to return to the emergency department if symptoms worsen or persist or if there are any questions or concerns that arise at home. Response to treatment: the patient's symptoms have mildly improved after treatment. Special discussion: Based on the patient's Hx, exam, and Dx evaluation, there is no indication for emergent surgery or inpatient Tx. It is understood by the patient/guardian that if the Sx's persist or worsen they need to return immediately for re-evaluation. 19:20 Differential diagnosis: appendicitis, bowel obstruction, diverticulitis, Endometriosis, jr8 non-specific abd pain, Ovarian Torsion, Pelvic Inflammatory Disease, Pyelonephritis, Tubal Ovarian Abcess, Ureterolithiasis, urinary tract infection. ED course: Patient overall improved. VS stable. Blood work and imaging without acute findings. Close return precautions given. Patient good with plan and will come back if worse . 19:26 ED course: Last opioid fill was in mid september. Narc score of 290. Overall 430. Patient jr8 will get minimal supply to help with pain but seems safe to go home with prescription . 10/14 13:07 Order name: Urine Dipstick-Ancillary; Complete Time: 13:57 EDMS 10/14 13:14 Order name: Urine --Ancillary (enter results); Complete Time: 14:04 eb 10/14 13:57 Order name: Basic Metabolic Panel [facility] 10/14 13:57 Order name: CBC with Diff [facility] 10/14 13:57 Order name: Hepatic Function [facility] 10/14 13:57 Order name: Lipase [facility] 10/14 13:58 Order name: Basic Metabolic Panel; Complete Time: 16:11 EDAZ 10/14 13:58 Order name: CBC with Automated Diff; Complete Time: 16:11 EDAZ 10/14 13:58 Order name: Liver (Hepatic) Function; Complete Time: 16:11 EDMS 10/14 13:58 Order name: Lipase; Complete Time: 16:11 EDAZ 10/14 14:17 Order name: CT Abd/Pelvis - PO and IV Contrast; Complete Time: 17:18 [facility] 10/14 17:46 Order name: US Transvaginal Study (Probe); Complete Time: 18:45 [facility] 10/14 13:57 Order name: IV Saline Lock; Complete Time: 14:42 [facility] 10/14 13:57 Order name: Labs collected and sent; Complete Time: 14:42 [facility] 10/14 14:51 Order name: Labs - recollect needed: recollect green top please-hemolyzed; Complete ss Time: 15:13 Administered Medications: 14:42 Drug: NS 0.9% 1000 ml Route: IV; Rate: 1000 ml; Site: left antecubital; ld1 15:16 Follow up: Response: No adverse reaction; IV Status: Completed infusion ld1 14:43 Drug: Zofran (Ondansetron) 4 mg Route: IVP; Site: left antecubital; ld1 15:16 Follow up: Response: No adverse reaction ld1 14:43 Drug: morphine 4 mg Route: IVP; Site: left antecubital; ld1 15:00 Follow up: Response: No adverse reaction ld1 15:59 Drug: Zofran (Ondansetron) 4 mg Route: IVP; Site: left antecubital; ld1 15:59 Follow up: Response: No adverse reaction ld1 16:30 Follow up: Response: No adverse reaction ld1 16:00 Drug: morphine 4 mg Route: IVP; Site: left antecubital; ld1 16:30 Follow up: Response: No adverse reaction ld1 17:28 Drug: Promethazine 12.5 mg Route: IVP; Site: left antecubital; ld1 18:17 Follow up: Response: No adverse reaction ld1 18:14 Drug: morphine 4 mg Route: IVP; Site: left antecubital; ld1 19:37 Drug: morphine 4 mg Route: IVP; Site: left antecubital; ak2 Disposition: 10/15 08:08 Co-signature as Attending Physician, Miquel Rios MD I agree with the assessment and kdr plan of care. Disposition: 10/14/20 19:19 Discharged to Home. Impression: Abdominal and pelvic pain. - Condition is Stable. - Discharge Instructions: Abdominal Pain, Adult. - Prescriptions for Tylenol- Codeine #3 300-30 mg Oral Tablet - take 2 tablets by ORAL route every 4-6 hours As needed; 16 tablet. promethazine 25 mg Oral Tablet - take 1 tablet by ORAL route every 6 hours As needed; 20 tablet. - Medication Reconciliation Form, Thank You Letter, Antibiotic Education, Prescription Opioid Use form. - Follow up: Private Physician; When: 2 - 3 days; Reason: Recheck today's complaints, Continuance of care, Re-evaluation by your physician. - Problem is new. - Symptoms have improved. 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 Impression: Abdominal and pelvic pain. ak2 Condition is Stable. Forms are Medication Reconciliation Form, Thank You Letter, Antibiotic Education, Prescription Opioid Use. Follow up: Private Physician; When: 2 - 3 days; Reason: Recheck today's complaints, Continuance of care, Re-evaluation by your physician. Problem is new. Symptoms have improved. jr8
[2020-10-14 20:02] VITALS: O2SAT 100
[2020-10-14 20:04] VITALS: TEMP 98.1
[2020-10-14 20:10] VITALS: BP 125/88
== END 2020-10-14 19:38 | disposition home or self-care (01) ==
LOC: ER 11:51
DX: R10.31 Right lower quadrant pain (principal); R10.2 Pelvic and perineal pain; J45.909 Unspecified asthma, uncomplicated; R11.2 Nausea with vomiting, unspecified; R50.9 Fever, unspecified
CPT/HCPCS: 96361; 85025; 80048; 36415; 81025; 80076; 81003; 83690; 74177; 76830; 96375; 96374; 99284; Q9967; J2550 ×2; J7030; J2405 ×2

== ENCOUNTER 2020-11-15 20:09 | Emergency (ER) | payer MEDICAID ==
--- OUTSIDE RECORDS SUMMARY | 2020-11-15 20:31 | XMS REPORT | Continuity of Care Document ---
:1995 Author Organization [facility] t Address [address] [place] [address] Care Team Providers Name Role Phone Sonny FELIX, A Primary Care Physician Dennis PEÑAP Attending Clinician Sharlene Soares Attending Clinician Doctor Unassigned, Name Attending Clinician Unavailable Khang FELIX, Cam Attending Clinician Krystle FELIX, T Attending Clinician Delroy FELIX, K.H. Attending Clinician Coretta FELIX Attending Clinician Payers Payer Name Policy Type Policy Effective Date Expiration Date Sour ce Number [facility] - [id number] 2019 Unive rsity of MANAGED 00:00:00 [place] [facility] [place]ICAID[place] Branch HEALTHCARE [id number] /05/2018-[address] Condition Condition Condition Status Onset Resolution Last Treating Co mments Source Name Details Category Date Date Treatment Clinician Date Pelvic Pelvic Disease Active Univers pain pain 4-27 ity of 00:00: [address] Insomnia, Insomnia, Disease Active Uni vers unspecifie unspecifie 4-27 it y of d type d type 00:00: [address] Abdominal Abdominal Disease Active 2019-05 Uni vers pain pain 2-02 ity of 00:00: [address] Anxiety Anxiety Disease Active Univers disorder, disorder, 8-25 ity of [place]specif[place] d type 00 [facility] Other Other Disease Active Univers depression depression 4-02 it y of 00:00: Medical Branch Visual Visual Disease Resolve 2019-052020-09-06 2020-09-06 Univers changes changes d 2- 00:00:00 21:27:31 ity of 00:00: Medical Branch Headache Headache Disease Resolve 2019-052020-09-06 2020-09-06 Univers d 2-19 00:00:00 21:27:31 ity of 00:00: Medical Branch Sinus Sinus Disease Resolve 2019-052020-09-06 2020-09-06 Univers tachycardi tachycardi d 2- 00:00:00 21:27:34 ity of a a 00:00: Medical Branch Insomnia, Insomnia, Disease Resolve 2020-09-06 2020-09-06 Univers unspecifie unspecifie d 8- 00:00:00 21:27:43 ity of d type d type 00:00: [place] [facility] Cervical Cervical Disease Resolve 2020-05-24 2020-05-24 Univers Papanicola Papanicola d 2-07 00:00:00 17:31:26 ity of ou smear ou smear 00:00: [place] negative negative 00 Medica l within within Branch last 12 last 12 months months Tachycardi Tachycardi Disease Resolve 2019-052020-05-07 2020-05-08 Univers a a d 2-01 00:00:00 04:50:20 ity of 00:00: [place] [facility] Other Other Disease Resolve 2020-01-05 2020-01-05 Univers general general d 4-22 00:00:00 22:38:00 [place] of counseling counseling [place] advice and advice 00 De dical for for Branch contracept contracept bonifacio bonifacio management management Routine Routine Disease Resolve 2020-01-05 2020-01-05 Univers d 4-02 00:00:00 22:37:57 ity of follow-up follow-up 00:00: Terrie dailey Medical Branch Back pain Back pain Disease Resolve 2020-01-052020-01-05 Univers d 4-02 00:00:00 22:37:59 ity of 00:00: [place] 00 Medical [place] History of History of Disease Resolve 2018-052020-01-05 2020-01-05 Univers tubal tubal d 2- 00:00:00 22:37:56 ity of ligation ligation 00:00: [place] 00 [facility] Branch Anxiety Anxiety Disease Resolve 2018-052020-01-05 2020-01-05 Univers during during d 2- 00:00:00 22:37:53 [place] second 00 [facility] trimester, trimester, Br anch antepartum antepartum Asthma Asthma Disease Resolve 2018-052020-01-05 2020-01-05 Univers affecting affecting d 2- 00:00:00 22:37:54 [place] third [place] third 00 Medica l trimester trimester Bran ch Liveborn Liveborn Disease Resolve 2019-08-13 2019-08-13 Univers , of , of d 3-12 00:00:00 16:34:07 [place] of morel morel 00:[place] , , 00 Me dical born in born in [facility] hospital by by delivery delivery Normal Normal Disease Resolve 2019-08-13 2019-08-13 Univers labor labor d 3-10 00:00:00 16:34:03 ity of 00:00: [place] 00 [facility] 37 weeks 37 weeks Disease Resolve 2019-08-13 2019-08-13 Univers gestation gestation d 1-02 00:00:00 16:51:42 ity of of of 00:00: [place] 00 [facility] Gastroesop Gastroesop Disease Resolve 2018-052019-08-13 2019-08-13 Univers hageal hageal d 2- 00:00:00 16:33:48 [place]y of reflux in reflux in 00[place] [facility] Supervisio Supervisio Disease Resolve 20192019-08-13 2019-08-13 Univers n of high n of high d 9- 00:00:00 16:32:56 ity of risk risk 00:00: [place] 00 Medi [facility] in third in third Branch trimester trimester Multiparit Multiparit Disease Resolve 20182019-08-13 2019-08-13 Univers y y d 02-06 00:00:00 16:33:04 ity of 00:00: [place] 00 Medical Branch [...] d 02-06 00:00:00 16:33:21 ity of 00:00: [place] 00 Medical Branch IUGR IUGR Disease Resolve 2019-07-21 2019-07-21 Univers (intrauter (intrauter d 2- 00:00:00 12:42:45 [place]y of ine growth ine growth 00:[place] restrictio restrictio 00 Me dical n) n) [...] Resolve 2019-07-21 2019-07-21 Univers uterine uterine d 1-18 00:00:00 12:42:50 [place] of contractio contractio 00:[place] 00 Medical [facility] Threatened Threatened [...] , 00:00[place] antepartum antepartum 00 De dical Branch 39 weeks 39 weeks Disease Resolve 2019-05-30 2019-05-30 Univers gestation gestation d 1-17 00:00:00 21:44:45 ity of of of 00:00: [place] 00 [facility] yessi Branch Disease Resolve 2019-05-28 2019-05-29 Univers uterine uterine d 1- 00:00:00 05:15:02 ity of contractio contractio 00:[place] in ns in 00 Medical second second Branch trimester, trimester, antepartum antepartum Candidiasi Candidiasi Disease Resolve 2018-052019-05-28 2019-05-29 Univers s of vulva s of vulva d -18 00:00:00 05:14:52 ity of and vagina and vagina [place] [facility] Allergies, Adverse Reactions, Alerts Allergy Allergy Status Severity Reaction(s) Onset Inactive Treating Comm ents Source Name Type Date Date Clinician Chanell Cline Active Other - See Patient Univers dol ty to comments 3-05 states it ity o f Lactate adverse 00:00: makes her [place] reaction 00 anxious Medical s and mean Branch Prommistia Marlyn Active Hallucinatio Univers zine ty to ns 2-23 ity of adverse 00:00: [place] reaction 00 Medical s Branch Prochlor Propensi Active Anxiety Unive rs perazine ty to 1-17 ity of adverse 00:00: [place] reaction 00 Medical s Branch Latex Propensi Active Rash 2019-05 Univers ty to 2 ity of adverse 00:00: [place] reaction Medical s Branch Metoclop Propensi Active Anxiety Patient Univ ers ramide ty to 07-11 says she ity of Hcl adverse 00:00: gets [place] reaction 00 figity, Medical s angry and Branch mean Social History Social Habit Start Date Stop Date Quantity Comments Source History SDIN University o f Alcohol Std [place] [facility] Drinks Branch History [facility] University o f Alcohol Binge [place] [facility] al Branch Exposure to Not sure [facility] SARS-CoV-2 [place] [facility] (event) Branch Alcohol intake 2020-09-06 2020-09-06 Ex-drinker University 00:00:00 00:00:00 [facility] Tobacco use and 2020-09-06 2020-09-06 Never used Universit y of exposure 00:00:00 00:00:00 [place] [facility] History SDOH 2019-02-06 2019-02-06 1 University o f Alcohol Frequency 00:00:00 00:00:00 [facility] Sex Assigned At [birth year] Universit y of 00:00:00 [facility]:00 [facility] Smoking Status Start Date Stop Date Source Never smoker [facility] Branch Medications Ordered Filled Start Stop Current Ordering [...] 10 4-26 tablet by ity of mEq (1,080 00:00: mouth [place] mg) SR 00 daily. Medical tablet Branch nadoloL 20 Yes Anxiety Please Un sushant mg tablet -21 disorder, take ity o f 00:00: unspecified Nadalol 40 [place] 00 type mg QAM and Medical 20 mg QPM Branch methocarbam Yes [employer] 500mg Take 1 Univers oL 4-08 [...] ity of mg tablet 00:00: mouth 2 [place] 00 (two) Medical times Branch daily. lidocaine 5 Yes Renal colic 1{patch Apply 1 Univers % (700 3-12 on right } Patch to ity o f mg/patch) 00:00: side area(s) [place] patch 00 every 24 Medical (twenty-fo Branch ur) hours as needed for Localized pain. topiramate Yes 25mg Take 1 Unive rs 25 mg 1-05 tablet by ity of tablet 00:00: mouth 2 [place] 00 (two) Medical times Branch daily. Immunizations Ordered Filled Immunization Date Status Comments Sour e Immunization Name Name Influenza Virus 2020-05-19 Completed Universit y of Vaccine 00:00:00 [facility] Branch Influenza Virus 2020-05-16 Completed Universit y of Vaccine Recomb Quad 00:00:00 [facility] IM, Preserv and ABX Branc h Free 18-64 YRS TDAP (ADACEL) 2019-05-21 Completed University of VACCINE 00:00:00 [facility] Branch Influenza Virus 2019-02-06 Completed Universit y of Vaccine Quad .5 mL 00:00:00 [facility] IM 6+ MO Branch Procedures This patient has no known procedures. Plan of Care Planned Activity Planned Date Details Comments Source Future Scheduled 2029-05-21 DTaP,Tdap,and Td Univers ity [facility] Test 00:00:00 Vaccines (2 - Td) Medical Br anch [code = DTaP,Tdap,and Td Vaccines (2 - Td)] Future Scheduled 2021-09-06 Depression screening Uni [facility] Test 00:00:00 (procedure) [code = Medical Branch [id number]] Future Scheduled 2016-02-19 Screening for [facility] Test 00:00:00 malignant neoplasm Medical B ranch of cervix (procedure) [code = [id number]] Future Scheduled 2013 Hepatitis C [facility] Test 00:00:00 screening Medical Branch (procedure) [code = [id number]] Future Scheduled 2011 SARS-CoV-2 [facility] Test 00:00:00 (COVID-19) Vaccine Medical B ranch (1) [code = SARS-CoV-2 (COVID-19) Vaccine (1)] Future Scheduled 2006 [facility] 2-dose series) [code Medical Branch = HPV VACCINES (1 - 2-dose series)] Encounters Start End Encounter Admission Attending Care Care Encounter Source Date/Time Date/Time Type Type Clinicians Facility Department ID 2020-11-10 2020-11-10 Urgent Alissa Collins [facility] [id number] 18:42:46 19:53:43 [facility] [id number] [place] [id number] [facility] [id number] nal [address] 2020-10-31 2020-10-31 Emergency Kaycee Méndez [facility] [id number] 18:52:00 22:15:00 Sharlene Maurice [id number] [place] [id number] [place] [id number] 2020-10-31 2020-10-31 Orders Doctor JORDAN [id number] 00:00:00 00:00:00 Only Unassigned, YAZMIN [id number] [facility] [id number] 2020-10-20 2020-10-20 Emergency Kaycee Méndez [facility] [id number] 14:02:00 17:13:00 Sharlene Richards [id number] [place] [id number] [place] [id number] 2020-10-14 2020-10-14 Hospital Shelia Quiñonez [facility] [id number] 10:00:00 23:59:00 Encounter Jm Richards [id number] [place] [id number] [place] [id number] 2020-10-09 2020-10-09 Emergency Krystle [facility] [id number] 12:00:00 15:57:00 Anna Richards [id number] [place] [id number] [place] [id number] 2020-10-06 2020-10-06 Office Shelia Quiñonez [facility] [id number] 08:53:00 09:46:44 Visit Jm Richards [id number] [place] [id number] Professio [id number] [place] [address] Building 2020-03-04 2020-03-04 Lopez Barnes [facility] [id number] 00:00:00 00:00:00 MULTISPEC [id number] [facility] [id number] [place] [id number] [facility] Results This patient has no known results.
[2020-11-15 22:20] LABS: Urine Blood 2+ (Negative); Urine Glucose Negative (Negative); Urine Protein Negative (Negative); Urine Specific Gravity <=1.005 (1.005-1.030)
[2020-11-15] MEDS ORDERED: ONDANSETRON 4 MG/2 ML VIAL ONE (23:10)
[2020-11-15] MEDS ORDERED: MORPHINE 4 MG/ML SYR ONE (23:10)
[2020-11-15 23:13] LABS: Absolute Lymphocytes (CBC) 2.9 K/uL (0.7-4.9); Basophils % 1.1 % (0-1.3); Hematocrit 37.3 % (36.0-45.0); Lymphocytes % 29.2 % (15.3-44.8); MPV 8.2 fL (7.6-11.3); RBC Red Blood Cell Count 4.41 M/uL (3.86-4.86)
[2020-11-15 23:17] LABS: ALT/SGPT 74 U/L (12-78); AST/SGOT 71 U/L (15-37); Albumin 3.8 g/dL (3.4-5.0); Alkaline Phosphatase 98 U/L (45-117); BUN Blood Urea Nitrogen 11 mg/dL (7-18); Bicarbonate 23 mmol/L (21-32); Bilirubin Direct < 0.1 mg/dL (0-0.2); Bilirubin Total 0.3 mg/dL (0.2-1.0); Glucose Level 99 mg/dL (74-106); Potassium 3.7 mmol/L (3.5-5.1); Protein, Total 7.7 g/dL (6.4-8.2); Sodium Level 139 mmol/L (136-145)
[2020-11-16] MEDS ORDERED: LIDOCAINE 1% MPF 5 ML VIAL ONE (00:07)
[2020-11-16] MEDS ORDERED: PROMETHAZINE INJ 25 MG/ML AMP ONE (00:23)
[2020-11-16] MEDS ORDERED: KETOROLAC 30 MG/ML INJ ONE (00:52)
[2020-11-16 00:53] LABS: Protime INR 0.92
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
[2020-11-16 01:59] VITALS: TEMP 98.2
[2020-11-16 02:02] VITALS: BP 125/83; O2SAT 98
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
== END 2020-11-16 01:38 | disposition home or self-care (01) ==
LOC: ER 20:09
DX: S16.1XXA Strain of muscle, fascia and tendon at neck level, initial encounter (principal); S40.012A Contusion of left shoulder, initial encounter; V49.40XA Driver injured in collision with unspecified motor vehicles in traffic accident, initial encounter; Z88.1 Allergy status to other antibiotic agents; Z88.5 Allergy status to narcotic agent; Z88.8 Allergy status to other drugs, medicaments and biological substances; Z91.040 Latex allergy status; Z91.048 Other nonmedicinal substance allergy status
CPT/HCPCS: 85025; 80048; 36415; 86900; 86850; 84703; 85610; 86901; 80076; 85730; 81003; 70450; 72125; 71260; 74177; 73030; 96375; 96374; 99284; Q9967; J2550; J2405

== ENCOUNTER 2021-01-25 09:30 | Emergency (ER) | payer OTHER, SELFPAY ==
--- OUTSIDE RECORDS SUMMARY | 2021-01-25 09:34 | XMS REPORT | Continuity of Care Document ---
:1995 Author Organization [facility] t Address [address] [place] [address] [address]. [address] [place] [address] Care Team Providers Name Role Phone Sonny FELIX, A Primary Care Physician Delroy FELIX, K.H. Attending Clinician Dennis HENDRICKS Attending Clinician Sharlene Soares Attending Clinician Doctor Unassigned, Name Attending Clinician Unavailable Khang FELIX, Cam Attending Clinician Krystle FELIX, T Attending Clinician Coretta FELIX Attending Clinician Payers Payer Name Policy Type Policy Number Effective Date Expiration Date S ource Problems Condition Condition Condition Status Onset Resolution Last Treating Co mments Source Name Details Category Date Date Treatment Clinician Date Absence of Absence of Disease Active U nivers menstruati menstruati 5-27 it y of on on 00:: [place] [facility] Pelvic Pelvic Disease Active Univers pain pain 4-27 ity of 00:: [place] [facility] Insomnia, Insomnia, Disease Active Uni vers unspecifie unspecifie 4-27 it y of d type d type 00:: [facility] Abdominal Abdominal Disease Active 2019-05 Uni vers pain pain 2-02 ity of 00:00: [place] [facility] [place] Tachycardi Tachycardi Disease Active 2019-05 U nivers a a 2- ity of 00:00: [place] [facility] Anxiety Anxiety Disease Active Univers disorder, disorder, 8- ity of unspecifie [place] d type 00 [facility] [place] Other Other Disease Active Univers depression depression 4-02 it y of 00:00: [place] [facility] Visual Visual Disease Resolve 2019-052020-09-06 2020-09-06 Univers changes changes d 2- 00:00:00 21:27:31 ity of 00:00: Medical Branch Headache Headache Disease Resolve 2019-052020-09-06 2020-09-06 Univers d 2-19 00:00:00 21:27:31 ity of 00:00: Medical Branch Sinus Sinus Disease Resolve 2019-052020-09-06 2020-09-06 Univers tachycardi tachycardi d 2- 00:00:00 21:27:34 ity of a a 00:: Medical Branch Insomnia, Insomnia, Disease Resolve 2020-09-06 2020-09-06 Univers unspecifie unspecifie d 8- 00:00:00 21:27:43 ity of d type d type 00:00: 00 Medical Branch Cervical Cervical Disease Resolve 2020-05-24 2020-05-24 Univers Papanicola Papanicola d 2-07 00:00:00 17:31:26 ity of ou smear ou smear 00:00: [place] negative negative 00 Medica l within within Branch last 12 last 12 months months Other Other Disease Resolve 2020-01-05 2020-01-05 Univers general general d 4-22 00:00:00 22:38:00 ity of counseling counseling 00:[place] and advice and advice 00 Az dical for for Branch contracept contracept bonifacio bonifacio management management Routine Routine Disease Resolve 2020-01-05 2020-01-05 Univers d 4-02 00:00:00 22:37:57 ity of follow-up [place]up 00:[place] [facility] [place] Back pain Back pain Disease Resolve 2020-01-05 2020-01-05 Univers d 4-02 00:00:00 22:37:59 ity of 00:00: Medical Branch History of History of Disease Resolve 2018-052020-01-05 2020-01-05 Univers tubal tubal d 2- 00:00:00 22:37:56 ity of ligation ligation 00:00: [place] 00 [facility] Anxiety Anxiety Disease Resolve 2018-052020-01-05 2020-01-05 Univers during during d 2-05 00:00:00 22:37:53 [place] in second 00 [facility] trimester, trimester, Br anch antepartum antepartum Asthma Asthma Disease Resolve 2018-052020-01-05 2020-01-05 Univers affecting affecting d 2-05 00:00:00 22:37:54 [place] of 00:[place] in third in third 00 Medica l trimester trimester Bran ch Liveborn Liveborn Disease Resolve 2019-08-13 2019-08-13 Univers infant, of , of d 3-12 00:00:00 16:34:07 ity of morel morel 00:[place] , , 00 [place] dical born in born in [facility] hospital by by delivery delivery Normal Normal Disease Resolve 2019-08-13 2019-08-13 Univers labor labor d 3-10 00:00:00 16:34:03 ity of 00:00: [place] 00 [facility] 37 weeks 37 weeks Disease Resolve 2019-08-13 2019-08-13 Univers gestation gestation d 1-02 00:00:00 16:51:42 ity of of of 00:00: [place] 00 [facility] Gastroesop Gastroesop Disease Resolve 2018-052019-08-13 2019-08-13 Univers hageal hageal d 2 00:00:00 16:33:48 ity of reflux in reflux in 00:00[place] [facility] Supervisio Supervisio Disease Resolve 2019-08-13 2019-08-13 Univers n of high n of high d 9 00:00:00 16:32:56 ity of risk risk 00:00: [place] 00 [facility] in third in third Branch trimester trimester Multiparit Multiparit Disease Resolve 2019-08-13 2019-08-13 Univers y y d 9 00:00:00 16:33:04 ity of 00:00: [place] 00 Medical Branch History of History of Disease Resolve 2019-08-13 2019-08-13 Univers d 02-06 00:00:00 16:33:12 ity of delivery delivery 00:00: [place] [facility] History of History of Disease Resolve 2019-08-13 2019-08-13 Univers d 02-06 00:00:00 16:33:20 it y of section section 00:00: [place] [facility] History of History of Disease Resolve 2019-08-13 2019-08-13 Univers d 02-06 00:00:00 16:33:21 ity of 00:00: [place] [facility] IUGR IUGR Disease Resolve 2019-07-21 [...] d 2-11 00:00:00 12:41:46 ity of 00:00: [place] 00 Medical Branch Upper Upper Disease Resolve 2019-07-21 2019-07-21 Univers respirator respirator d 2-11 00:00:00 12:43:06 ity of y tract y tract 00:00: [place] infection, infection, 00 Me dical unspecifie unspecifie Br anch d type d type Pain of Pain of Disease Resolve 2019-07-21 2019-07-21 Univers round round d 1-23 00:00:00 12:42:49 ity of ligament ligament 00:00: [...] Resolve 2019-07-21 2019-07-21 Univers (bacterial (bacterial d 1-02 00:00:00 12:41:44 ity of vaginosis) vaginosis) [place] 00 [place] [facility] Anemia of Anemia of Disease Resolve 2018-052019-07-21 2019-07-21 Univers mother in mother in d 2-30 00:00:00 12:41:35 ity of , , 00:00[place] antepartum antepartum 00 Az dical Branch 39 weeks 39 weeks Disease Resolve 2019-05-30 2019-05-30 Univers gestation gestation d 1-17 00:00:00 21:44:45 ity of of of 00:00: [place] 00 [facility] Branch Disease Resolve 2019-05-28 2019-05-29 Univers uterine [...] 2 ity of adverse 00:00: [place] reaction 00 Medical s Branch Metoclop Propensi Active Anxiety Patient Univ ers ramide ty to 3 says she ity of Hcl adverse 00:00: gets [place] reaction 00 figity, Medical s angry and Branch mean Social History Social Habit Start Date Stop Date Quantity Comments Source History SDOH University o f Alcohol Std [place] [facility] Drinks Branch History SDOH University o f Alcohol Binge [place] [facility] Exposure to Yes [facility] SARS-CoV-2 [place] [facility] (event) Branch History [facility] University o f Alcohol Comment [place] Med ical Branch Alcohol intake 2020-12-26 2020-12-26 Ex-drinker University of 00:00:00 00:00:00 (finding) [place] [facility] Tobacco use and 2019-02-06 2019-02-06 Never used Universit y of exposure 00:00:00 00:00:00 [place] [facility] History SDOH 2019-02-06 2019-02-06 1 University o f Alcohol Frequency 00:00:00 00:00:00 [facility] edical Branch Sex [birth year] Universit y of 00:00:00 00:00:00 [facility] Smoking Status Start Date Stop Date Source Never smoker [facility] Medical Branch Medications Ordered Filled Start Stop Current Ordering Indication Dosage Frequency Signature Comments Components Source Medication Medication Date Date Medication? Clinician (SIG) Name Name carvediloL 2020- Yes [id number] 12.5mg Take 1 Univers 12.5 mg 8-16 09-16 tablet by ity of tablet 00:00: 04:59 mouth 2 [place] 00 :00 (two) Medical times Branch daily with meals for 30 days. carvediloL 2020- Yes [id number] 12.5mg Take 1 Univers 12.5 mg 8-16 09-16 tablet by ity of tablet 00:00: 04:59 mouth 2 [place] 00 :00 (two) Medical times Branch daily with meals for 30 days. losartan 50 Yes 50mg Take 1 Univ ers mg tablet 8-13 tablet by ity o f 00:00: mouth 2 [place] 00 (two) Medical times Branch daily. losartan 50 Yes 50mg Take 1 Univ ers mg tablet 12-23 tablet by ity o f 00:00: mouth 2 [place] 00 (two) Medical times Branch daily. nadoloL 40 2020- No [id number] 60mg Take 1.5 Univers mg tablet 12-23-16 tablets by ity of 00:00: 00:00 mouth [place] 00 :00 daily. Medical Please Branch take Nadalol 40 mg QAM nadoloL 40 2020- No [id number] 60mg Take 1.5 Univers mg tablet 12-2316 tablets by ity of 00:00: 00:00 mouth [place] 00 :00 daily. Medical Please Branch take Nadalol 40 mg QAM ibuprofen 2020- No [id number] 600mg Take 1 Univers 600 mg 12-13 tablet by ity of tablet 00:00: 00:00 mouth [place] 00 :00 every 6 Medical (six) Branch hours as needed for Pain (scale 4-6). dicyclomine 2020- No [id number] 20mg Take 1 Univers 20 mg 12-1316 tablet by ity of tablet 00:00: 00:00 mouth 4 [place] 00 :00 (four) Medical times Branch daily. ondansetron 2020- No [id number] 4mg Take 1 Univers (ZOFRAN 12-13-16 tablet by ity of ODT) 4 mg 00:00: 00:00 mouth [place] disintegrat 00 :00 every 8 Medic al ing tablet (eight) Branch hours as needed for Nausea and Vomiting (N/V). ibuprofen 2020- No [id number] 600mg Take 1 Univers 600 mg 12-1316 tablet by ity of tablet 00:00: 00:00 mouth [place] 00 :00 every 6 Medical (six) Branch hours as needed for Pain (scale 4-6). dicyclomine 2020- No [id number] 20mg Take 1 Univers 20 mg 8-07 18-16 tablet by ity of tablet 00:00: 00:00 mouth 4 [place] 00 :00 (four) Medical times Branch daily. ondansetron 2020- No [id number] 4mg Take 1 Univers (ZOFRAN -07 18-16 tablet by ity of ODT) 4 mg 00:00: 00:00 mouth [place] disintegrat 00 :00 every 8 Medic al ing tablet (eight) Branch hours as needed for Nausea and Vomiting (N/V). topiramate 2020- No 25mg Take 1 Univ ers 25 mg 7-13 08-16 tablet by ity of tablet 00:00: 00:00 mouth 2 [place] 00 :00 (two) Medical times Branch daily. topiramate 2020- No 25mg Take 1 Univ ers 25 mg 7-13 08-16 tablet by ity of tablet 00:00: 00:00 mouth 2 [place] 00 :00 (two) Medical times Branch daily. OXcarbazepi Yes Univer s ne 150 mg 7-12 ity of tablet 00:00: [place] 00 Medical Branch OXcarbazepi 0 Yes Univer s ne 150 mg 7-12 ity of tablet 00:00: [place] 00 Medical Branch FLUoxetine 2020-0 2020- No Univer s 40 mg 7-12 08-16 ity of capsule 00:00: 00:00 [place] 00 :00 Medical Branch traZODone 2020- No Univers 100 mg 7-12 08-16 ity of tablet 00:00: 00:00 [place] 00 :00 Medical Branch FLUoxetine 2020-0 2020- No Univer s 40 mg 7-12 08-16 ity of capsule 00:00: 00:00 [place] 00 :00 Medical Branch traZODone 2020-0 1- No Univers 100 mg 7-12 08-16 ity of tablet 00:00: 00:00 [place] 00 :00 Medical Branch dicyclomine 2020- No [id number] 20mg Take 1 Univers 20 mg 6-10 08-16 tablet by ity of tablet 00:00: 00:00 mouth 4 [place] 00 :00 (four) Medical times Branch daily. proMETHazin 2020- No [id number] 25mg Take 1 Univers e 25 mg 6-10 08-16 tablet by ity of tablet 00:00: 00:00 mouth [place] 00 :00 every 6 Medical (six) Branch hours as needed for Nausea and Vomiting (N/V). dicyclomine 2020- No [id number] 20mg Take 1 Univers 20 mg 6-10 08-16 tablet by ity of tablet 00:00: 00:00 mouth 4 [place] 00 :00 (four) Medical times Branch daily. proMETHazin 2020- No [id number] 25mg Take 1 Univers e 25 mg 6-10 08-16 tablet by ity of tablet 00:00: 00:00 mouth [place] 00 :00 every 6 Medical (six) Branch hours as needed for Nausea and Vomiting (N/V). acetaminoph 2020- No TAKE 2 Uni vers en-codeine 6-05 08-16 TABLETS BY it y of 300-30 mg 00:00: 00:00 MOUTH [place] tablet 00 :00 EVERY 6 Medical HOURS Branch NEEDED FOR PAIN acetaminoph 2020- No TAKE 2 Uni vers en-codeine 6-05 08-16 TABLETS BY it y of 300-30 mg 00:00: 00:00 MOUTH [place] tablet 00 :00 EVERY 6 Medical HOURS Branch NEEDED FOR PAIN oxybutynin 2020- No [id number] 10mg Take 1 Univers (DITROPAN 5-30 08-16 tablet by ity of XL) 10 mg 00:00: 00:00 mouth [place] 24 hr 00 :00 daily. Medical tablet Branch ondansetron 2020- No [id number] 4mg Take 1 Univers (ZOFRAN 5-30 08-16 tablet by ity of ODT) 4 mg 00:00: 00:00 mouth [place] disintegrat 00 :00 every 8 Medic al ing tablet (eight) Branch hours as needed for Nausea and Vomiting (N/V). oxybutynin 2020- No [id number] 10mg Take 1 Univers (DITROPAN 5-30 08-16 tablet by ity of XL) 10 mg 00:00: 00:00 mouth [place] 24 hr 00 :00 daily. Medical tablet Branch ondansetron 2020- No [id number] 4mg Take 1 Univers (ZOFRAN 5-30 08-16 tablet by ity of ODT) 4 mg 00:00: 00:00 mouth [place] disintegrat 00 :00 every 8 Medic al ing tablet (eight) Branch hours as needed for Nausea and Vomiting (N/V). mupirocin 2 2020- No [id number] Apply to Univers % ointment 09-29 both ity of 00:00: 00:00 nostrils [place] 00 :00 at bedtime Medical Branch mupirocin 2 2020- No [id number] Apply to Univers % ointment 09-29- both ity of 00:00: 00:00 nostrils [place] 00 :00 at bedtime Medical Branch naproxen 2020- No [id number] 550mg Take 1 U nivers sodium 09-28-16 tablet by ity of (ANAPROX 00:00: 00:00 mouth 2 [place] DS) 550 mg 00 :00 (two) Medical tablet times Branch daily with meals. naproxen 2020- No [id number] 550mg Take 1 U nivers sodium 09-28- tablet by ity of (ANAPROX 00:00: 00:00 mouth 2 [place] DS) 550 mg 00 :00 (two) Medical tablet times Branch daily with meals. FLUoxetine Yes Other 20mg Take 1 Univ ers 20 mg 4-27 depression capsule by it y of capsule 00:00: mouth 00 daily. Medical Branch traZODone Yes Insomnia, 50mg Take 1 U nivers 50 mg 4-27 unspecified tablet by it y of tablet 00:00: type mouth at [place] 00 bedtime. Medical Branch LOESTRIN FE Yes [id number] 1{tbl} Take 1 Univers (LOESTRIN 4-27 tablet by ity o f FE 06/01) 1 00:00: mouth [place] mg-20 mcg 00 daily. Medical (21)/75 mg Branch (7) tablet LOESTRIN FE Yes [id number] 1{tbl} Take 1 Univers (LOESTRIN 4-27 tablet by ity o f FE 06/01) 1 00:00: mouth [place] mg-20 mcg 00 daily. 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 500mg Take 1 Univers oL 4-08 [...] 2020-05-19 Completed Universit y of Vaccine 00:00:00 [facility] Influenza Virus 2020-05-19 Completed Universit y of Vaccine 00:00:00 [facility] Influenza Virus 2020-05-19 Completed Universit y of Vaccine 00:00:00 [facility] Influenza Virus 2020-05-16 Completed Universit y of Vaccine Recomb Quad 00:00:00 [facility] IM, Preserv and ABX Branc h Free 18-64 YRS Influenza Virus 2020-05-16 Completed Universit y of Vaccine Recomb Quad 00:00:00 [place] [facility] IM, Preserv and ABX Branc h Free 18-64 YRS Influenza Virus 2020-05-16 Completed Universit y of Vaccine Recomb Quad 00:00:00 [facility] IM, Preserv and ABX Branc h Free 18-64 YRS TDAP (ADACEL) 2019-05-21 Completed University of VACCINE 00:00:00 [facility] TDAP (ADACEL) 2019-05-21 Completed University of VACCINE 00:00:00 [facility] TDAP (ADACEL) 2019-05-21 Completed University of VACCINE 00:00:00 [facility] Influenza Virus 2019-02-06 Completed Universit y of Vaccine Quad .5 mL 00:00:00 [facility] 6+ MO Branch Influenza Virus 2019-02-06 Completed Universit y of Vaccine Quad .5 mL 00:00:00 [facility] [place] [facility] 6+ MO Branch Influenza Virus 2019-02-06 Completed Universit y of Vaccine Quad .5 mL 00:00:00 [facility] [place] [facility] 6+ MO Branch Vital Signs Vital Name Observation Time Observation Value Comments Source Systolic blood 2020-12-26 20:19:00 129 mm[Hg] [facility] Diastolic blood 2020-12-26 20:19:00 75 mm[Hg] [facility] [place] Heart rate 2020-12-26 20:19:00 86 /min [facility] Body height 2020-12-26 20:19:00 154.9 cm [facility] Body weight 2020-12-26 20:19:00 63.504 kg [facility] BMI 2020-12-26 20:19:00 26.45 kg/m2 [facility] Medical Branch Oxygen saturation 2020-12-26 20:19:00 96 /min [facility] in Arterial blood Medical Br anch by Pulse oximetry Procedures Procedure Date / Time Performed Performing Clinician Sourdaniel e [place] ELECTROCARDIOGRAM, 2020-12-26 20:23:35 Rad Potts Un [facility] COMPLETE Medical Branch Plan of Care Planned Activity Planned Date Details Comments Source Future Scheduled 2029-05-21 DTaP[facility]Tdap,and Td [facility] Vaccines (2 - Td) Medical Br anch [code = DTaP,Tdap,and Td Vaccines (2 - Td)] Future Scheduled 2021-09-06 Depression screening [facility] Test 00:00:00 (procedure) [code = Medical Branch [id number]] Future Scheduled 2016-02-19 Screening for [facility] Test 00:00:00 malignant neoplasm Medical B ranch of cervix (procedure) [code = 172347278] Future Scheduled 2013 Hepatitis C [facility] Test 00:00:00 screening Medical Branch (procedure) [code = 099596822] Future Scheduled 2011 SARS-CoV-2 [facility] Test 00:00:00 (COVID-19) Vaccine Medical B ranch (1) [code = SARS-CoV-2 (COVID-19) Vaccine (1)] Future Scheduled 2006 HPV VACCINES (1 - Univer [facility] Test 00:00:00 2-dose series) [code Medical Branch = HPV VACCINES (1 - 2-dose series)] Encounters Start End Encounter Admission Attending Care Care Encounter Source Date/Time Date/Time Type Type Clinicians Facility Department ID 2020-12-26 2020-12-26 Office Delroy [facility] [id number] 15:00:32 16:13:32 Visit Rad Richards [id number] [facility] [id number] Terrie Brunner [id number] Az dical nal 059 Branch Building 2020-11-10 2020-11-10 Urgent Alissa Collins [facility] [id number] 18:42:46 19:53:43 Care Health [id number] [place] [id number] Professio [id number] nal 044 Office Building One 2020-10-31 2020-10-31 Emergency Kaycee Méndez [facility] [id number] 18:52:00 22:15:00 Sharlene Richards [id number] [place] [id number] [place] [id number] [id number] 2020-10-31 2020-10-31 Orders Doctor JORDAN [id number] 00:00:00 00:00:00 Only Unassigned, YAZMIN [id number] [place] [facility] [id number] 2020-10-20 2020-10-20 Emergency Kaycee Méndez [facility] [id number] 14:02:00 17:13:00 Sharlene Maurice [id number] [place] [id number] [place] [id number] 2020-10-14 2020-10-14 Hospital hSelia Quiñonez [facility] [id number] 10:00:00 23:59:00 Encounter Jm [place] [id number] [place] [id number] [place] [id number] 2020-10-09 2020-10-09 Emergency Krystle [facility] [id number] 12:00:00 15:57:00 Anna Richards [id number] [place] [id number] [place] [id number] 2020-10-06 2020-10-06 Office Shelia Quiñonez [facility] [id number] 08:53:00 09:46:44 Visit Jm Maurice [id number] [place] [id number] Professio [id number] [place] [address] Building 2020-03-04 2020-03-04 RefLopez Centeno [facility] [id number] 00:00:00 00:00:00 MULTISPEC [id number] [place] 4.2.7.2.686 [place] [id number] [facility] Results This patient has no known results.
[2021-01-25] MEDS ORDERED: KETOROLAC 30 MG/ML INJ ONE (10:30)
[2021-01-25] MEDS ORDERED: ONDANSETRON 4 MG/2 ML VIAL ONE (10:30)
[2021-01-25] MEDS ORDERED: Ringers Lactate 1,000 ML IV ONE (10:30)
[2021-01-25 10:39] LABS: Absolute Lymphocytes (CBC) 1.4 K/uL (0.7-4.9); Basophils % 0.3 % (0-1.3); Hematocrit 37.8 % (36.0-45.0); Lymphocytes % 32.2 % (15.3-44.8); MPV 7.6 fL (7.6-11.3)
[2021-01-25 10:59] LABS: ALT/SGPT 34 U/L (12-78); AST/SGOT 31 U/L (15-37); Albumin 3.8 g/dL (3.4-5.0); Alkaline Phosphatase 95 U/L (45-117); BUN Blood Urea Nitrogen 9 mg/dL (7-18); Bicarbonate 23 mmol/L (21-32); Bilirubin Direct 0.1 mg/dL (0-0.2); Bilirubin Total 0.5 mg/dL (0.2-1.0); Glucose Level 94 mg/dL (74-106); Lipase 64 U/L (73-393); Potassium 3.2 mmol/L (3.5-5.1); Protein, Total 7.3 g/dL (6.4-8.2); Sodium Level 140 mmol/L (136-145)
[2021-01-25] MEDS ORDERED: ACETAMINOPHEN 500 MG TAB ONE (11:00)
[2021-01-25] MEDS ORDERED: MORPHINE 4 MG/ML SYR ONE (11:46)
--- NOTE | 2021-01-25 12:06 | ER ---
Nurse's Notes [facility] Name: Natanael Dyson Age: 25 yrs Sex: Female : 1995 Arrival Date: 01/25/2021 Time: 09:31 Bed 15 Private MD: Diagnosis: Vomiting;Dehydration;SARS-associated coronavirus as the cause of diseases classified elsewhere Presentation: 01/25 09:40 Chief complaint: N/V, body aches, headache, fever x 2-3 days "It feels like I have jl7 shards of glass in my lungs when I try to take a deep breath.". Coronavirus screen: Vaccine status: Patient reports being unvaccinated. fatigue, fever, headache, Client presents with at least one sign or symptom that may indicate coronavirus-19. Standard/surgical mask placed on the client. Provider contacted for isolation considerations. Ebola Screen: No symptoms or risks identified at this time. Initial Sepsis Screen: Does the patient meet any 2 criteria? No. Patient's initial sepsis screen is negative. Does the patient have a suspected source of infection? No. Patient's initial sepsis screen is negative. Risk Assessment: Do you want to hurt yourself or someone else? Patient reports no desire to harm self or others. Onset of symptoms was January 25, 2021. 09:40 Method Of Arrival: Ambulatory 09:40 Acuity: THIERNO 4 jl7 Triage Assessment: 09:43 General: Appears in no apparent distress. uncomfortable, Behavior is cooperative, jl7 anxious. Pain: Complains of pain in all over Pain currently is 8 out of 10 on a pain scale. Quality of pain is described as aching. 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 - Social history:: Smoking status: Patient denies any tobacco usage or history of. Assessment: 10:56 Reassessment: No changes from previously documented assessment. Pain: Pain currently is ch5 10 out of 10 on a pain scale. Vital Signs: 09:40 BP 148 / 97; Pulse 110; Resp 17; Temp 98.3; Pulse Ox 97% on R/A; Weight 68.04 kg; jl7 Height 5 ft. 2 in. (157.48 cm); Pain 8/10; 12:27 BP 132 / 76; Pulse 73; Resp 18; Pulse Ox 100% on R/A; Pain 0/10; ch5 09:40 Body Mass Index 27.44 (68.04 kg, 157.48 cm) jl7 ED Course: 09:31 Patient arrived in ED. ds1 09:33 Asad Estevez PA is PHCP. jr8 09:33 Harjit Samson MD is Attending Physician. jr8 09:43 Triage completed. jl7 09:43 Arm band placed on right wrist. jl7 09:49 Landry Lafleur, RN is Primary Nurse. ch5 10:37 Inserted saline lock: 22 gauge in left hand, using aseptic technique. started by delmi Cooper RN. Administered Medications: 10:30 Drug: Ringers - Lactated Ringers Solution 1000 ml Route: IV; Rate: bolus; Site: left ch5 hand; 12:21 Follow up: IV Status: Completed infusion ch5 10:30 Drug: Zofran (Ondansetron) 4 mg Route: IVP; Site: left hand; ch5 12:21 Follow up: Response: No change in condition ch5 10:33 Not Given (Physician Discretion): Ketorolac 15 mg IVP once jr8 10:33 Not Given (Physician Discretion): [facility] Dose Pack 120 mg/mL-120 mg/mL (EUA) 600 mg jr8 IV at calculated rate Per protocol 11:00 Drug: Tylenol 1000 mg Route: PO; ch5 12:21 Follow up: Response: No change in condition ch5 11:33 Drug: morphine 4 mg Route: IVP; Site: left hand; ch5 12:22 Follow up: Response: Pain is decreased ch5 12:05 Drug: Promethazine 12.5 mg Route: IVP; Site: left hand; ch5 12:22 Follow up: Response: Nausea is decreased ch5 12:22 Drug: Potassium Chloride 40 mEq Route: PO; ch5 Outcome: 12:05 Discharge ordered by MD. montemayor 13:09 Discharged to home 5 13:09 Condition: improved 13:09 Discharge instructions given to patient, Prescriptions given X 1. 13:10 Patient left the ED. 5 Signatures: Isaura Garcia ds1 Asad Estevez PA PA jr8 Leal, Jahala, RN RN jl7 [place] [facility] Landry Lafleur RN RN 5
--- NOTE | 2021-01-25 12:06 | EDPHYS ---
Physician Documentation [facility] Name: Natanael Dyson Age: 25 yrs Sex: Female : 1995 Arrival Date: 01/25/2021 Time: 09:31 Bed 15 Private MD: ED Physician Harjit Samson HPI: 01/25 10:40 This 25 yrs old Female presents to ER via Ambulatory with complaints of Covid jr8 Symptoms. 10:40 This is a 25-year-old female patient that presented to the emergency room for further jr8 evaluation of Covid. Was recently diagnosed and feels worse. Patient stated that she has myalgias all over her body along with headaches and persistent vomiting and diarrhea.. Severity of symptoms: At their worst the symptoms were moderate in the emergency department the symptoms are unchanged. The patient has not experienced similar symptoms in the past. The patient has not recently seen a physician. 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 - Social history:: Smoking status: Patient denies any tobacco usage or history of. ROS: 10:40 Constitutional: Positive for body aches, chills, malaise. jr8 10:40 Abdomen/GI: Positive for nausea, vomiting, and diarrhea, Negative for abdominal pain. 10:40 Neuro: Positive for headache. 10:40 All other systems are negative. Exam: 10:40 Eyes: Pupils equal round and reactive to light, extra-ocular motions intact. Lids and jr8 lashes normal. Conjunctiva and sclera are non-icteric and not injected. Cornea within normal limits. Periorbital areas with no swelling, redness, or edema. ENT: Nares patent. No nasal discharge, no septal abnormalities noted. Tympanic membranes are normal and external auditory canals are clear. Oropharynx with no redness, swelling, or masses, exudates, or evidence of obstruction, uvula midline. Mucous membranes moist. Neck: Trachea midline, no thyromegaly or masses palpated, and no cervical lymphadenopathy. Supple, full range of motion without nuchal rigidity, or vertebral point tenderness. No Meningismus. Respiratory: Lungs have equal breath sounds bilaterally, clear to auscultation and percussion. No rales, rhonchi or wheezes noted. No increased work of breathing, no retractions or nasal flaring. Abdomen/GI: Soft, non-tender, with normal bowel sounds. No distension or tympany. No guarding or rebound. No evidence of tenderness throughout. Back: No spinal tenderness. No costovertebral tenderness. Full range of motion. Skin: Warm, dry with normal turgor. Normal color with no rashes, no lesions, and no evidence of cellulitis. MS/ Extremity: Pulses equal, no cyanosis. Neurovascular intact. Full, normal range of motion. Neuro: Awake and alert, GCS 15, oriented to person, place, time, and situation. Cranial nerves II-XII grossly intact. Motor strength 5/5 in all extremities. Sensory grossly intact. 10:40 Cardiovascular: Rate: tachycardic, Rhythm: regular, Pulses: Pulses are 2+ in right radial artery and left radial artery. Heart sounds: normal, normal S1and S2, no S3 or S4, no murmur, no rub, no gallop, Edema: is not appreciated, JVD: is not appreciated. Vital Signs: 09:40 BP 148 / 97; Pulse 110; Resp 17; Temp 98.3; Pulse Ox 97% on R/A; Weight 68.04 kg; jl7 Height 5 ft. 2 in. (157.48 cm); Pain 8/10; 12:27 BP 132 / 76; Pulse 73; Resp 18; Pulse Ox 100% on R/A; Pain 0/10; ch5 09:40 Body Mass Index 27.44 (68.04 kg, 157.48 cm) 7 MDM: 09:52 Patient medically screened. jr8 12:04 Data reviewed: vital signs, nurses notes, lab test result(s), and as a result, I will jr8 discharge patient. Data interpreted: Pulse oximetry: on room air is 97 %. Interpretation: normal. Counseling: I had a detailed discussion with the patient and/or guardian regarding: the historical points, exam findings, and any diagnostic results supporting the discharge/admit diagnosis, lab results, the need for outpatient follow up, a family practitioner, to return to the emergency department if symptoms worsen or persist or if there are any questions or concerns that arise at home. ED course: Patient doing mildly better. Promethazine has seemed to help patient with the vomiting aspect. Patient unfortunately not a candidate for the Regeneron at this time due to being greater than 10 days out. Otherwise hemodynamically stable. Told her to continue to monitor respiratory status. If she were to worsening point to come back for further reevaluation.. 01/25 09:56 Order name: Basic Metabolic Panel; Complete Time: 11:06 01/25 09:56 Order name: CBC with Diff; Complete Time: 10:42 01/25 09:56 Order name: Hepatic Function; Complete Time: 11:06 01/25 09:56 Order name: Lipase; Complete Time: 11:06 01/25 09:56 Order name: IV Saline Lock; Complete Time: 10:37 01/25 09:56 Order name: Labs collected and sent; Complete Time: 10:37 Administered Medications: 10:30 Drug: Ringers - Lactated Ringers Solution 1000 ml Route: IV; Rate: bolus; Site: left 5 hand; 12:21 Follow up: IV Status: Completed infusion ch5 10:30 Drug: Zofran (Ondansetron) 4 mg Route: IVP; Site: left hand; ch5 12:21 Follow up: Response: No change in condition ch5 10:33 Not Given (Physician Discretion): Ketorolac 15 mg IVP once jr8 10:33 Not Given (Physician Discretion): REGEN-COV Dose Pack 120 mg/mL-120 mg/mL (EUA) 600 mg jr8 IV at calculated rate Per protocol 11:00 Drug: Tylenol 1000 mg Route: PO; ch5 12:21 Follow up: Response: No change in condition ch5 11:33 Drug: morphine 4 mg Route: IVP; Site: left hand; ch5 12:22 Follow up: Response: Pain is decreased ch5 12:05 Drug: Promethazine 12.5 mg Route: IVP; Site: left hand; ch5 12:22 Follow up: Response: Nausea is decreased ch5 12:22 Drug: Potassium Chloride 40 mEq Route: PO; ch5 Disposition: 15:41 Co-signature as Attending Physician, Harjit Samson MD I agree with the assessment and rn plan of care. Attestation: The patient's history, exam findings, diagnostics, and a summary of any interventions or procedures was reviewed in detail with Asad KWOK. Disposition Summary: 01/25/21 12:05 Discharge Ordered Location: Home jr8 Problem: new jr8 Symptoms: have improved jr8 Condition: Stable jr8 Diagnosis - Vomiting jr8 - Dehydration jr8 - SARS-associated coronavirus as the cause of diseases classified elsewhere jr8 Followup: jr8 - With: Private Physician - When: 2 - 3 days - Reason: Recheck today's complaints, Continuance of care, Re-evaluation by your physician Discharge Instructions: - Discharge Summary Sheet jr8 - Dehydration, Adult jr8 - COVID-19 jr8 Forms: - Medication Reconciliation Form jr8 - Thank You Letter jr8 - Antibiotic Education jr8 - Prescription Opioid Use jr8 Prescriptions: - promethazine 25 mg Oral Tablet - take 1 tablet by ORAL route every 6 hours As needed; 20 tablet; Refills: 0, jr8 Product Selection Permitted Signatures: Dispatcher [employer] EDHarjit Li MD MD rn Roszak, Josh, PA PA jr8 Matty Bee RN RN jl7 Landry Lafleur RN RN ch5
[2021-01-25] MEDS ORDERED: PROMETHAZINE INJ 25 MG/ML AMP ONE (12:18)
[2021-01-25] MEDS ORDERED: POTASSIUM CL SA 10 MEQ TAB PO ONE (12:48)
[2021-01-25 13:45] VITALS: TEMP 98.3
[2021-01-25 13:47] VITALS: BP 132/76; O2SAT 100
== END 2021-01-25 13:10 | disposition home or self-care (01) ==
LOC: ER 09:30
DX: U07.1 COVID-19 (principal); E86.0 Dehydration; Z88.5 Allergy status to narcotic agent; Z88.8 Allergy status to other drugs, medicaments and biological substances; Z91.040 Latex allergy status; Z91.048 Other nonmedicinal substance allergy status
CPT/HCPCS: 36415; 80048; 80076; 83690; 85025; 96365; 96366; 96375; 99283; J2405; J2550; J7120

== ENCOUNTER 2021-02-23 18:00 | Emergency (ER) | payer OTHER ==
[2021-02-23 19:53] LABS: Urine Blood Trace-lysed (Negative); Urine Glucose Negative (Negative); Urine Protein Negative (Negative); Urine Specific Gravity 1.025 (1.005-1.030)
[2021-02-23 20:12] LABS: Urine Specific Gravity/Preg 1.025 (1.005-1.030)
[2021-02-23 20:14] LABS: Basophils % 0.7 % (0-1.3); Hematocrit 42.6 % (36.0-45.0); Lymphocytes % 26.7 % (15.3-44.8); MPV 7.5 fL (7.6-11.3); RBC Red Blood Cell Count 4.94 M/uL (3.86-4.86)
[2021-02-23 20:31] LABS: Urine Bacteria 20-50 /HPF (<20); Urine RBC <5 /HPF (NONE SEEN)
[2021-02-23 20:33] LABS: Albumin 4.5 g/dL (3.4-5.0); Bilirubin Direct 0.1 mg/dL (0-0.2); Bilirubin Total 0.5 mg/dL (0.2-1.0); Potassium 3.8 mmol/L (3.5-5.1); Thyroid Stimulating Hormone 1.49 uIU/mL (0.360-3.740)
[2021-02-23] MEDS ORDERED: IBUPROFEN 400 MG TAB ONE (20:47)
--- NOTE | 2021-02-23 20:59 | RAD REPORT ---
EXAM DESCRIPTION: CT - Head Brain Wo Cont - 02/23/2021 8:53 pm CLINICAL HISTORY: HEADACHE Headache, drowsiness COMPARISON: Head Brain Wo Cont dated 05/10/2020; Head angio dated 05/10/2020 TECHNIQUE: All CT scans are performed using dose optimization technique as appropriate and may inclu de automated exposure control or mA/KV adjustment according to patient size. FINDINGS: No intracranial hemorrhage, hydrocephalus or extra-axial fluid collection.No areas of brai n edema or evidence of midline shift. The paranasal sinuses and mastoids are clear. The calvarium is intact. IMPRESSION: No acute intracranial abnormality.
--- NOTE | 2021-02-23 21:01 | RAD REPORT ---
EXAM DESCRIPTION: CTAbdomen Pelvis W Contrast - 02/23/2021 8:54 pm CLINICAL HISTORY: Abdominal pain. Abd pain;Nausea / vomiting COMPARISON: Abdomen Pelvis W Contrast dated 10/14/2020; Abdomen Pelvis W Contrast dated 08/27/2020; Abdomen Pelvis W Contrast dated 08/02/2020; Abdomen Pelvis W Contrast dated 07/03/2020 TECHNIQUE: Biphasic CT imaging of the abdomen and pelvis was performed with 100 ml non-ionic IV cont rast. All CT scans are performed using dose optimization technique as appropriate and may include automated exposure control or mA/KV adjustment according to patient size. FINDINGS: The lung bases are clear. The liver, spleen, pancreas, adrenal glands are within normal limits. Punctate bilateral caliceal sto jayesh are seen without hydronephrosis. Small fat containing umbilical hernia. No bowel obstruction, free air, free fluid or abscess. The appendix is normal. No evidence of signi ficant lymphadenopathy. No suspicious bony findings. IMPRESSION: Punctate bilateral nephrolithiasis without hydronephrosis.
--- NOTE | 2021-02-23 21:17 | EDPHYS ---
Physician Documentation [facility] Name: Natanael Dyson Age: 26 yrs Sex: Female : 1995 Arrival Date: 02/23/2021 Time: 18:03 Bed 12 Private MD: ED Physician Harjit Samson HPI: 02/23 21:09 This 26 yrs old Female presents to ER via Ambulatory with complaints of rn Fever, Weakness hair falling out, anxiety, diarrhea. 21:09 The patient reports fever, not measured (subjective). Onset: The symptoms/episode rn began/occurred 2 week(s) ago. Modifying factors: there are no obvious modifying factors. Associated signs and symptoms: Pertinent positives: chills, diarrhea, nausea, Pertinent negatives: cough, hemoptysis, shortness of breath, swelling, vomiting. Severity of symptoms: At their worst the symptoms were mild in the emergency department the symptoms are unchanged. The patient has not experienced similar symptoms in the past. The patient has not recently seen a physician. Patient reports 2 weeks of subjective fever and chills, fatigue, headache, muscle aches, hair falling out, diarrhea, generalized weakness.. 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 - Social history:: Smoking status: Patient denies any tobacco usage or history of. - Family history:: not pertinent. - Hospitalizations: : No recent hospitalization is reported. ROS: 21:09 Constitutional: Positive for fever and chills and weight gain Eyes: Negative for rn injury, pain, redness, and discharge, ENT: Negative for injury, pain, and discharge, Neck: Negative for injury, pain, and swelling, Cardiovascular: Negative for chest pain, palpitations, and edema, Respiratory: Negative for wheezing, and pleuritic chest pain, Abdomen/GI: Negative for constipation Back: Negative for injury and pain, MS/Extremity: Negative for injury and deformity, Skin: Positive for bruising Neuro: Negative for numbness, tingling, and seizure. Exam: 21:09 Constitutional: This is a well developed, well nourished patient who is awake, alert, rn and in no acute distress. Feels very anxious Head/Face: Normocephalic, atraumatic. Eyes: Pupils equal round and reactive to light, extra-ocular motions intact. Lids and lashes normal. Conjunctiva and sclera are non-icteric and not injected. Cornea within normal limits. Periorbital areas with no swelling, redness, or edema. ENT: Moist mucous membranes, no stridor Neck: Trachea midline, no thyromegaly or masses palpated, and no cervical lymphadenopathy. Supple, full range of motion without nuchal rigidity, or vertebral point tenderness. No Meningismus. Cardiovascular: Tachycardic, regular. No pulse deficits. Respiratory: Speaking full sentences, unlabored. No increased work of breathing, no retractions or nasal flaring. Abdomen/GI: Soft, non-tender Skin: Warm, dry MS/ Extremity: Pulses equal, no cyanosis. Neurovascular intact. Full, normal range of motion. Equal circumference. Neuro: Awake and alert, GCS 15, oriented to person, place, time, and situation. Cranial nerves II-XII grossly intact. Motor strength 5/5 in all extremities. Sensory grossly intact. Cerebellar exam normal. Vital Signs: 18:10 BP 123 / 97; Pulse 115; Resp 21; Temp 98.1(TE); Pulse Ox 100% on R/A; Weight 72.57 kg; ap3 Height 5 ft. 1 in. (154.94 cm); Pain 7/10; 19:54 BP 129 / 86; Pulse 102; Resp 19; Pulse Ox 100% on R/A; ld1 18:10 Body Mass Index 30.23 (72.57 kg, 154.94 cm) ap3 MDM: 19:15 Patient medically screened. rn 21:09 Differential diagnosis: viral Infection, bacterial infection, URI, UTI, Viral syndrome, rn dehydration, anxiety, acute stress reaction, leukemia, lymphoma. Data reviewed: vital signs, nurses notes, lab test result(s), radiologic studies, CT scan, and as a result, I will discharge patient. 21:15 Counseling: I had a detailed discussion with the patient and/or guardian regarding: the rn historical points, exam findings, and any diagnostic results supporting the discharge/admit diagnosis, lab results, radiology results, the need for outpatient follow up, to return to the emergency department if symptoms worsen or persist or if there are any questions or concerns that arise at home. Response to treatment: the patient's symptoms have mildly improved after treatment, and as a result, I will discharge patient. Special discussion: Based on the patient's Hx, exam, and Dx evaluation, there is no indication for emergent surgery or inpatient Tx. It is understood by the patient/guardian that if the Sx's persist or worsen they need to return immediately for re-evaluation. I discussed with the patient/guardian in detail that at this point there is no indication for admission to the hospital. It is understood, however, that if the symptoms persist or worsen the patient needs to return immediately for re-evaluation. Based on the history and exam findings, there is no indication for further emergent testing or inpatient evaluation. I discussed with the patient/guardian the need to see the primary care provider for further evaluation of the symptoms. ED course: No acute findings and work-up. Questionable UTI. Will DC home with antibiotics and PCP follow-up. CT head and CT abdomen pelvis no acute findings. No evidence of thrombocytopenia or any blood abnormalities. TSH fine.. 02/23 19:25 Order name: Urine Microscopic Only; Complete Time: 21:04 02/23 19:25 Order name: CBC with Diff; Complete Time: 21: 02/23 19:25 Order name: Basic Metabolic Panel; Complete Time: 21:04 02/23 19:25 Order name: TSH; Complete Time: 21:04 02/23 19:25 Order name: T4 Free; Complete Time: 21:04 02/23 19:25 Order name: Victoria Screen Profile; Complete Time: 21:04 02/23 19:25 Order name: Flu; Complete Time: 21:04 02/23 19:25 Order name: Strep; Complete Time: 21:04 02/23 19:25 Order name: Hepatic Function; Complete Time: 21:04 02/23 19:25 Order name: Lipase; Complete Time: 21:04 02/23 19:53 Order name: Urine Dipstick-Ancillary; Complete Time: 21:04 EDMS 02/23 19:54 Order name: Urine --Ancillary (enter results) tt3 02/23 19:55 Order name: Urine --Ancillary; Complete Time: 21:04 EDMS 02/23 20:32 Order name: Urine Culture EDMS 02/23 19:25 Order name: CT Head Brain wo Cont; Complete Time: 21:04 rn 02/23 19:25 Order name: CT Abd/Pelvis - IV Contrast Only; Complete Time: 21:04 rn 02/23 19:25 Order name: Urine Dipstick-Ancillary (obtain specimen); Complete Time: 19:54 rn 02/23 19:25 Order name: Urine Test (obtain specimen); Complete Time: 19:54 rn 02/23 19:25 Order name: IV Start; Complete Time: 19:54 rn 02/23 19:25 Order name: Labs collected and sent; Complete Time: 19:54 rn 02/23 20:59 Order name: Throat Culture EDMS Administered Medications: No medications were administered Disposition Summary: 02/23/21 21:16 Discharge Ordered Location: Home rn Problem: new rn Symptoms: have improved rn Condition: Stable rn Diagnosis - UTI/ Urinary tract infection, site not specified rn - Other malaise and fatigue rn - Fever, unspecified rn Followup: rn - With: Private Physician - When: As needed - Reason: Recheck today's complaints, Re-evaluation by your physician Discharge Instructions: - Discharge Summary Sheet rn - Fever, Adult rn - Urinary Tract Infection, Adult rn Forms: - Medication Reconciliation Form rn - Thank You Letter rn - Antibiotic 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
--- NOTE | 2021-02-23 21:17 | ER ---
Nurse's Notes [facility] Name: Ntaanael Dyson Age: 26 yrs Sex: Female : 1995 Arrival Date: 02/23/2021 Time: 18:03 Bed 12 Private MD: Diagnosis: UTI/ Urinary tract infection, site not specified;Other malaise and fatigue;Fever, unspecified Presentation: 02/23 18:10 Chief complaint: Patient states: she had COVID 2 months ago. About 2 weeks ago she ap3 states she has started losing her hair, having body aches again, fevers, chills, has been bruising easily and has no energy. She states she feels overwhelmed with these symptoms, and wants to figure out what is wrong with her. Patient cried and is visibly upset during triage assessment. Coronavirus screen: Client presents with at least one sign or symptom that may indicate coronavirus-19. Standard/surgical mask placed on the client. Ebola Screen: No symptoms or risks identified at this time. No acute neurological deficit is noted. Initial Sepsis Screen: Does the patient meet any 2 criteria? No. Patient's initial sepsis screen is negative. Does the patient have a suspected source of infection? No. Patient's initial sepsis screen is negative. Risk Assessment: Do you want to hurt yourself or someone else? Patient reports no desire to harm self or others. Onset of symptoms was February 10, 2021. 18:10 Method Of Arrival: Ambulatory ap3 18:10 Acuity: THIERNO 3 ap3 Triage Assessment: 18:16 The onset of the patients symptoms was February 10, 2021 at 00:00. General: Appears ap3 distressed, Behavior is anxious, crying, Reports chills for fever for feeling ill for fatigue for. Pain: Complains of pain in generalized body aches. Neuro: Level of Consciousness is awake, alert, obeys commands, Oriented to person, place, time, situation, Appropriate for age Moves all extremities. Gait is steady, Speech is normal, Reports blurred vision dizziness, headache occipital area, weakness. Cardiovascular: Patient's skin is warm and dry. Respiratory: Airway is patent Respiratory effort is even, unlabored. GI: Reports diarrhea, nausea, vomiting. 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 - Social history:: Smoking status: Patient denies any tobacco usage or history of. - Family history:: not pertinent. - Hospitalizations: : No recent hospitalization is reported. Screenin:20 Abuse screen: Denies threats or abuse. Tuberculosis screening: No symptoms or risk ap3 factors identified. 18:20 Nutritional screening: Has had N/V for 3 or more days. ap3 19:54 Fall Risk None identified. ld1 Assessment: 19:54 General: Appears in no apparent distress. comfortable, Behavior is calm, cooperative, ld1 appropriate for age. Pain: Denies pain. Neuro: Level of Consciousness is awake, alert, obeys commands, Oriented to person, place, time, situation. Cardiovascular: Capillary refill < 3 seconds Patient's skin is warm and dry. Respiratory: Airway is patent Respiratory effort is even, unlabored, Respiratory pattern is regular, symmetrical. GI: Abdomen is flat, non-distended. GI: Reports nausea, vomiting. : No signs and/or symptoms were reported regarding the genitourinary system. EENT: No signs and/or symptoms were reported regarding the EENT system. Derm: No signs and/or symptoms reported regarding the dermatologic system. Musculoskeletal: No signs and/or symptoms reported regarding the musculoskeletal system. Vital Signs: 18:10 BP 123 / 97; Pulse 115; Resp 21; Temp 98.1(TE); Pulse Ox 100% on R/A; Weight 72.57 kg; ap3 Height 5 ft. 1 in. (154.94 cm); Pain 7/10; 19:54 BP 129 / 86; Pulse 102; Resp 19; Pulse Ox 100% on R/A; ld1 18:10 Body Mass Index 30.23 (72.57 kg, 154.94 cm) ap3 ED Course: 18:03 Patient arrived in ED. rg4 18:14 Triage completed. ap3 18:19 Arm band placed on right wrist. ap3 19:03 Harjit Samson MD is Attending Physician. rn 19:23 Kellie Hernandez, RN is Primary Nurse. ld1 19:50 Initial lab(s) drawn, by me, sent to lab. Inserted saline lock: 22 gauge in right em wrist, using aseptic technique. Blood collected. 19:54 Patient has correct armband on for positive identification. Call light in reach. Side ld1 rails up X 1. Pulse ox on. NIBP on. Door closed. Noise minimized. Warm blanket given. 19:54 No provider procedures requiring assistance completed. ld1 20:53 CT Head Brain wo Cont In Process Unspecified. EDMS 20:54 CT Abd/Pelvis - IV Contrast Only In Process Unspecified. EDMS 21:40 IV discontinued, intact, bleeding controlled, No redness/swelling at site. ld1 Administered Medications: No medications were administered Outcome: 21:16 Discharge ordered by MD. rn 21:40 Discharged to home ambulatory. ld1 21:40 Condition: stable 21:40 Discharge instructions given to patient, Instructed on discharge instructions, follow up and referral plans. medication usage, Demonstrated understanding of instructions, follow-up care, medications. 21:40 Patient left the ED. ld1 Signatures: Dispatcher [employer] EDIgor Reyes RN ROSEY Harjit Samson MD MD rn Garcia, Rubi rg4 Ileana Negrete RN RN ap3 Kellie Hernandez, RN RN ld1 Corrections: (The following items were deleted from the chart) 18:21 18:20 Nutritional screening: No deficits noted. ap3 ap3
[2021-02-23 21:55] VITALS: TEMP 98.1; O2SAT 100
[2021-02-23 21:59] VITALS: BP 129/86
== END 2021-02-23 21:40 | disposition home or self-care (01) ==
LOC: ER 18:00
DX: N39.0 Urinary tract infection, site not specified (principal); R53.81 Other malaise; R53.83 Other fatigue; I10 Essential (primary) hypertension; Z86.16 Personal history of COVID-19; Z88.8 Allergy status to other drugs, medicaments and biological substances; Z91.040 Latex allergy status; Z91.048 Other nonmedicinal substance allergy status
CPT/HCPCS: 87070; 87088; 85025; 87086; 80048; 36415; 86308; 81025; 80076; 87081; 84443; 84439; 83690; 87804 ×2; 70450; 74177; 99284; Q9967; 81003; 81015

== ENCOUNTER 2021-03-27 17:24 | Emergency (ER) | payer OTHER ==
--- OUTSIDE RECORDS SUMMARY | 2021-03-27 17:28 | XMS REPORT | Continuity of Care Document ---
:1995 Author Organization [facility] t Address [address] [place] [address] Care Team Providers Name Role Phone Sonny FELIX, A Primary Care Physician JUSTINE Attending Clinician Unavailable SONNY, Kassandra Attending Clinician Unavailable Sonny FELIX, Kassandra Attending Clinician Dennis HENDRICKS Attending Clinician Sharlene Soares Attending Clinician Doctor Unassigned, Name Attending Clinician Unavailable Khang FELIX, Cam Attending Clinician Krystle FELIX, T Attending Clinician Delroy FELIX, K.H. Attending Clinician Coretta FELIX Attending Clinician Payers Payer Name Policy Type Policy Number Effective Date Expiration Date [facility] [id number] 2019 MEDICAID 00:00:00 Problems Condition Condition Condition Status Onset Resolution Last Treating Co mments Source Name Details Category Date Date Treatment Clinician Date Microhemat Microhemat Disease Active 2020-05 U nivers uria uria -06 ity of 00:00: [place] [address] Medical Branch B12 B12 Disease Active 2020-05 Univers deficiency deficiency -06 it y of (suboptima [place]suboptima [place] l level l level 00 Medical <400) <400) Branch Absence of Absence of Disease Active U nivers menstruati menstruati 5-27 it y of on on 00:00: [place] [facility] Pelvic Pelvic Disease Active Univers pain pain 4- ity of 00:00: [place] [facility] Insomnia, Insomnia, Disease Active Uni vers unspecifie unspecifie 4- it y of d type d type 00:00: [place] [facility] Abdominal Abdominal Disease Active 2019-05 Uni vers pain pain 2- ity of 00:00: [place] [facility] Tachycardi Tachycardi Disease Active 2019-05 U nivers a a 2- ity of 00:00: [place] [facility] Anxiety Anxiety Disease Active Univers disorder, disorder, 8 ity of unspecifie unspecifie [place] type d type 00 [facility] Other Other Disease Active Univers depression depression 4- it y of 00:00: [place] [facility] Visual Visual Disease Resolve 2019-052020-09-06 2020-09-06 Univers changes changes d 2- 00:00:00 21:27:31 ity of 00:00: [place] [facility] Headache Headache Disease Resolve 2019-052020-09-06 2020-09-06 Univers d 2-19 00:00:00 21:27:31 ity of 00:00: [place] [facility] Sinus Sinus Disease Resolve 2019-052020-09-06 2020-09-06 Univers tachycardi tachycardi d 2- 00:00:00 21:27:34 ity of a a 00:00: [place] [facility] Insomnia, Insomnia, Disease Resolve 2020-09-06 2020-09-06 Univers unspecifie unspecifie d 8- 00:00:00 21:27:43 ity of d type d type 00:00: [place] 00 Medical Branch Cervical Cervical Disease Resolve 2020-05-24 2020-05-24 Univers Papanicola Papanicola d 2-07 00:00:00 17:31:26 ity of ou smear ou smear 00:00: [place] negative negative 00 Medica l within within Branch last 12 last 12 months months Other Other Disease Resolve 2020-01-05 2020-01-05 Univers general general d 4-22 00:00:00 22:38:00 ity of counseling counseling 00:[place] and advice and advice 00 Me dical for for [place] contracept contracept bonifacio bonifacio management management Routine Routine Disease Resolve 2020-01-05 2020-01-05 Univers d 4-02 00:00:00 22:37:57 [place] of follow[place]up [place] Back pain Back pain Disease Resolve 2020-01-05 2020-01-05 Univers d 4- 00:00:00 22:37:59 ity of 00:00: [place] 00 Medical Branch History of History of Disease Resolve 2018-052020-01-05 2020-01-05 Univers tubal tubal d 2 00:00:00 22:37:56 ity of ligation ligation 00:00: [place] 00 Medical Branch Anxiety Anxiety Disease Resolve 2018-052020-01-05 2020-01-05 Univers during during d 2-05 00:00:00 22:37:53 [place] second in second 00 [facility] trimester, trimester, Br anch antepartum antepartum Asthma [...] 00 Me dical born in born in [facility] by by delivery delivery Normal Normal Disease Resolve 2019-08-13 2019-08-13 Univers labor labor d 3-10 00:00:00 16:34:03 ity of 00:00: [place] 00 Medical Branch 37 weeks 37 weeks Disease Resolve 2019-08-13 2019-08-13 Univers gestation gestation d 1-02 00:00:00 16:51:42 ity of of of 00:00: [place] 00 [facility] Branch Gastroesop Gastroesop Disease Resolve 2018-052019-08-13 2019-08-13 Univers hageal hageal d 2- 00:00:00 16:33:48 ity of reflux in reflux in 00:[place] [facility] Branch Supervisio Supervisio Disease Resolve 2019-08-13 2019-08-13 Univers n of high n of high d 02-06 00:00:00 16:32:56 ity of risk risk 00:00: [place] 00 Medi yessi in third in third Branch trimester trimester Multiparit Multiparit Disease Resolve 2019-08-13 2019-08-13 Univers y y d 02-06 00:00:00 16:33:04 ity of 00:00: [place] 00 Medical Branch History of History of Disease Resolve 2019-08-13 2019-08-13 Univers d 02-06 00:00:00 16:33:12 ity of delivery delivery 00:00: [place] 00 Medical Branch History of History of Disease Resolve 2019-08-13 2019-08-13 Univers d 02-06 00:00:00 16:33:20 it y of section section 00:00: [place] [facility] History of History of Disease Resolve 2019-08-13 2019-08-13 Univers d 02-06 00:00:00 16:33:21 ity of 00:00: [place] 00 Medical Branch IUGR IUGR Disease Resolve 2019-07-21 2019-07-21 Univers (intrauter (intrauter d - 00:00:00 12:42:45 ity of ine growth ine growth 00:00[place] restrictio restrictio 00 Me dical n) n) Branch affecting affecting care of care of mother, mother, third third trimester, trimester, fetus 1 fetus 1 Body aches Body aches Disease Resolve 2019-07-21 2019-07-21 Univers d 2-11 00:00:00 12:41:46 ity of 00:00: [place] 00 Medical Branch Upper Upper Disease Resolve [...] Previous Disease Resolve 2019-07-21 2019-07-21 Univers d 1-19 00:00:00 12:42:55 it y of delivery delivery 00:00: [place] affecting affecting 00 Medi yessi , , Br anch antepartum antepartum Disease Resolve 2019-07-21 2019-07-21 Univers uterine uterine d 1-18 00:00:00 12:42:50 ity of contractio contractio 00:00: [place] 00 Medical Branch Threatened Threatened Disease Resolve 2019-07-21 2019-07-21 Univers d -16 00:00:00 12:43:02 ity of labor, labor, 00:00: [...] , 00:00: [place] antepartum antepartum 00 Mo dical Branch 39 weeks 39 weeks Disease Resolve 2019-05-30 2019-05-30 Univers gestation gestation d 1-17 00:00:00 21:44:45 ity of of of 00:00: [place] 00 [facility] yessi Branch Disease Resolve 2019-05-28 2019-05-29 Univers uterine uterine d 1-02 00:00:00 05:15:02 ity of contractio contractio 00:00: [place] ns in ns in 00 Medical second second Branch trimester, trimester, antepartum antepartum Candidiasi Candidiasi Disease Resolve 20192019-05-28 2019-05-29 Univers s of vulva s of vulva d -18 00:00:00 05:14:52 ity of and vagina and vagina 00:00: [place] 00 [place] Allergies, Adverse Reactions, Alerts Allergy Allergy Status Severity Reaction(s) Onset Inactive Treating Comm ents Source Name Type Date Date Clinician Haloperi Propensi Active Other - See Patient Univers dol ty to comments 07-15 states it ity o f Lactate adverse 00:00: makes her [place] reaction 00 anxious Medical s and mean Branch Prometha Propensi Active Hallucinatio Univers zine ty to ns 2 ity of adverse 00:00: [place] reaction 00 Medical s Branch PROCHLOR DRUG Active Anxiety Univers PERAZINE INGREDI 05-29 ity of 00:00: [place] 00 Medical Branch Prochlor Propensi Active Anxiety Unive rs perazine ty to 05-29 ity of adverse 00:00: [place] reaction 00 Medical s Branch LATEX DRUG Active Rash 2019- Univers INGREDI 06-14 ity of 00:00: [place] 00 Medical Branch Latex Propensi Active Rash 2019- Univers ty to 06-14 ity of adverse 00:00: [place] reaction 00 Medical s Branch METOCLOP DRUG Active Med Anxiety 2020-0 Univers RAMIDE INGREDI 07-11 ity of HCL 00:00: [place] 00 Medical Branch Metoclop Propensi Active Anxiety 2020-0 Patient Univ ers ramide ty to 07-11 says she ity of Hcl adverse 00:00: gets [place] reaction 00 figity, Medical s angry and Branch mean Social History Social Habit Start Date Stop Date Quantity Comments Source History SDOH University o f Alcohol Std [place] Medical Drinks Branch History [facility] University o f Alcohol Binge [place] Medic al Branch Exposure to Yes University of SARS-CoV-2 [place] [facility] (event) Branch History [facility] University o f Alcohol Comment [place] [facility] ical [facility] Alcohol intake 2021-03-26 2021-03-26 Ex-drinker University of 00:00:00 00:00:00 (finding) [place] [facility] Tobacco use and 2019-02-06 2019-02-06 Never used Universit y of exposure 00:00:00 00:00:00 [place] [facility] History SDOH 2019-02-06 2019-02-06 1 University o f Alcohol Frequency 00:00:00 00:00:00 [facility] edical Branch Sex [birth year] Universit y of 00:00:00 00:00:00 [place] [facility] Smoking Status Start Date Stop Date Source Never smoker [facility] Medical Branch Medications Ordered Filled Start Stop Current Ordering Indication Dosage Frequency Signature Comments Components Source Medication Medication Date Date Medication? Clinician (SIG) Name Name methylPREDN 2020-05 Yes [id number] Follow Univers ISolone 4 1-04 package ity of mg tablets 00:00: [place] [facility] [place] methylPREDN 2020-05 Yes [id number] Follow Univers ISolone 4 1-04 package ity of mg tablets 00:00: [place] Nitrofurant 2020-05- No [id number] 100mg Take 1 Univers oin&Nit. 1- 11-12 capsule by ity of Macrocryst 00:00: 05:59 mouth 2 [place] 100 mg 00 :00 (two) Medical capsule times Branch daily for 7 days. Nitrofurant 2020-05- No [id number] 100mg Take 1 Univers oin&Nit. 1-08 21-12 capsule by ity of Macrocryst 00:00: 05:59 mouth 2 [place] 100 mg 00 :00 (two) Medical capsule times Branch daily for 7 days. benzonatate 2020-05- No [id number] 100mg Take 1 Univers 100 mg 0-01 11-04 capsule by ity of capsule 00:00: 00:00 mouth 3 [place] 00 :00 (three) Medical times Branch daily as needed for Cough. ondansetron 2020-05- No [id number] 4mg Take 1 Univers (ZOFRAN 0-01 11-04 tablet by ity of ODT) 4 mg 00:00: 00:00 mouth [place] disintegrat 00 :00 every 8 Medic al ing tablet (eight) Branch hours as needed for Nausea and Vomiting (N/V). benzonatate 2020-05- No [id number] 100mg Take 1 Univers 100 mg 0-01 11-04 capsule by ity of capsule 00:00: 00:00 mouth 3 [place] 00 :00 (three) Medical times Branch daily as needed for Cough. ondansetron 2020-05- No [id number] 4mg Take 1 Univers (ZOFRAN 0-01 11-04 tablet by ity of ODT) 4 mg 00:00: 00:00 mouth [place] disintegrat 00 :00 every 8 Medic al ing tablet (eight) Branch hours as needed for Nausea and Vomiting (N/V). fluticasone 2020-0 Yes [id number] 2{puff} Inhale 2 Univers propion-chel 9-30 Puffs 2 ity o f meteroL 00:00: (two) [place] 115-21 00 times Medical mcg/actuati daily. Branch on inhaler Rinse mouth after each use. albuterol 2020-0 Yes [id number] 2.5mg Inhale 3 Univers 2.5 mg /3 9-30 mL every 6 ity of mL (0.083 00:00: (six) [place] %) 00 hours as Medical nebulizer needed for Bran ch solution Wheezing or Shortness of Breath. methocarbam 0 Yes [id number] 500mg Take 1 Univers oL 9-30 tablet by ity of (ROBAXIN) 00:00: mouth [place] 500 mg 00 every 6 Medical tablet (six) Branch hours as needed (MUSCLE SPASM). fluticasone 2020-0 Yes [id number] 2{puff} Inhale 2 Univers propion-chel 9-30 Puffs 2 ity o f meteroL 00:00: (two) [place] 115-21 00 times Medical mcg/actuati daily. Branch on inhaler Rinse mouth after each use. albuterol 0 Yes [id number] 2.5mg Inhale 3 Univers 2.5 mg /3 9-30 mL every 6 ity of mL (0.083 00:00: (six) [place] %) 00 hours as Medical nebulizer needed for Bran ch solution Wheezing or Shortness of Breath. methocarbam 2020-0 Yes [id number] 500mg Take 1 Univers oL 9-30 tablet by ity of (ROBAXIN) 00:00: mouth [place] 500 mg 00 every 6 Medical tablet (six) Branch hours as needed (MUSCLE SPASM). albuterol 2020-0 Yes [id number] 2{puff} Inhale 2 Univers 90 9- [id number] Puffs ity of mcg/actuati 00:00: every 4 [place] on inhaler 00 (four) Medical hours as Branch needed for Wheezing or Shortness of Breath. albuterol 0 Yes [id number] 2{puff} Inhale 2 Univers 90 9- [id number] Puffs ity of mcg/actuati 00:00: every 4 [place] on inhaler 00 (four) Medical hours as Branch needed for Wheezing or Shortness of Breath. FLUoxetine Yes Other 20mg Take 1 Univ [...] Medical 20 mg QPM Branch methocarbam Yes [place] [employer] of 500mg Take 1 Univers oL 4-08 [...] Immunizations Ordered Filled Immunization Date Status Comments [facility] e Immunization Name Name Influenza Virus 2020-05-19 Completed Universit y of Vaccine 00:00:00 [facility] Influenza Virus 2020-05-19 Completed Universit y of Vaccine 00:00:00 [facility] Influenza Virus 2020-05-19 Completed Universit y of Vaccine 00:00:00 [facility] Influenza Virus 2020-05-16 Completed Universit y of Vaccine Recomb Quad 00:00:00 [facility], Preserv and ABX Branc h Free 18-64 YRS Influenza Virus 2020-05-16 Completed Universit y of Vaccine Recomb Quad 00:00:00 [facility] IM, Preserv and ABX Branc h Free 18-64 YRS Influenza Virus 2020-05-16 Completed Universit y of Vaccine Recomb Quad 00:00:00 [place] [facility] IM, Preserv and ABX Branc h Free 18-64 YRS TDAP (ADACEL) 2019-05-21 Completed University of VACCINE 00:00:00 [facility] TDAP (ADACEL) 2019-05-21 Completed University of VACCINE 00:00:00 [facility] TDAP (ADACEL) 2019-05-21 Completed University of VACCINE 00:00:00 [facility] Influenza Virus 2019-02-06 Completed Universit y of Vaccine Quad .5 mL 00:00:00 [facility] 6+ MO Branch Influenza Virus 2019-02-06 Completed Universit y of Vaccine Quad .5 mL 00:00:00 [facility] 6+ MO Branch Influenza Virus 2019-02-06 Completed Universit y of Vaccine Quad .5 mL 00:00:00 [facility] 6+ MO Branch Vital Signs Vital Name Observation Time Observation Value Comments Source Systolic blood 2021-03-16 15:10:00 123 mm[Hg] Univer sity of pressure [facility] Diastolic blood 2021-03-16 15:10:00 88 mm[Hg] Unive rsity of [facility] Heart rate 2021-03-16 15:10:00 61 /min [facility] Body temperature 2021-03-16 15:10:00 37 [facility] height 2021-03-16 15:10:00 154.9 cm [facility] Body weight 2021-03-16 15:10:00 68.947 kg [facility] BMI 2021-03-16 15:10:00 28.72 kg/m2 [facility] Procedures Procedure Date / Time Performed Performing Clinician Sourc e POCT URINALYSIS 2021-03-16 00:00:00 Paz Dennis [facility] Plan of Care Planned Activity Planned Date Details Comments Source Future Scheduled 2029-05-21 DTaP,Tdap,and Td [facility] Test 00:00:00 Vaccines (2 - Td) Medical Br anch [code = DTaP,Tdap,and Td Vaccines (2 - Td)] Future Scheduled 2021-09-06 Depression screening Uni [facility] Test 00:00:00 (procedure) [code = Medical Branch 132477121] Future Scheduled 2016-02-19 Screening for [facility] Test 00:00:00 malignant neoplasm Medical B ranch of cervix (procedure) [code = 868557750] Future Scheduled 2013 Hepatitis C [facility] Test 00:00:00 screening Medical Branch (procedure) [code = 168148722] Future Scheduled 2011 SARS-CoV-2 [facility] Test 00:00:00 (COVID-19) Vaccine Medical B ranch (1) [code = SARS-CoV-2 (COVID-19) Vaccine (1)] Future Scheduled 2006 HPV VACCINES (1 - Univer [facility] Test 00:00:00 2-dose series) [code Medical Branch = HPV VACCINES (1 - 2-dose series)] Encounters Start End Encounter Admission Attending Care Care Encounter Source Date/Time Date/Time Type Type Clinicians Facility Department ID 2021-04-20 2021-04-20 Outpatient R JUSTINE [facility] [id number] Univers 15:00:00 15:00:00 SCOTT [id number] ity of [facility] 2021-03-16 2021-03-16 Outpatient R SONNY [facility] [id number] Univers 11:00:00 11:14:45 WONDIFUL ity o f [facility] 2021-03-16 2021-03-16 [facility] [id number] Univers 10:00:58 11:14:45 Visit Wondiful A HEALTH [id number] ity of [place] [id number] [place] as TALYA?BLEA [phone] Mo dical [address] MEDICAL OFFICE BUILDING 2020-11-10 2020-11-10 Urgent Alissa Collins [facility] [id number] 18:42:46 19:53:43 Care Health [id number] [place] [id number] [facility] [id number] [place] [address] [address] 2020-10-31 2020-10-31 Emergency Kaycee Méndez [facility] [id number] 18:52:00 22:15:00 Sharlene Richards [id number] [place] [id number] [place] [id number] 2020-10-31 2020-10-31 Orders Doctor JORDAN [id number] 00:00:00 00:00:00 Only Unassigned, YAZMIN [id number] [place] [facility] [id number] [id number] 2020-10-20 2020-10-20 Emergency Kaycee Méndez [facility] [id number] 14:02:00 17:13:00 Sharlene Richards [id number] [place] [id number] [place] [id number] 2020-10-14 2020-10-14 Hospital Shelia Quiñonez [facility] [id number] 10:00:00 23:59:00 Encounter Jm Richards [id number] [place] [id number] [place] [id number] 2020-10-09 2020-10-09 Emergency [facility] [id number] 12:00:00 15:57:00 Anna Richards [id number] [place] [id number] [place] [id number] 2020-10-06 2020-10-06 Office Shelia Quiñonez [facility] [id number] 08:53:00 09:46:44 Visit Jm Richards [id number] [place] [id number] Professio [id number] [address] 2020-03-04 2020-03-04 Refill Lopez Hitchcock [facility] [id number] 00:00:00 00:00:00 MULTISPEC [id number] [place] 4.2.7.2.686 [place] [phone] AND ERIBERTO [facility] Results Test Description Test Time Test Comments Results Result Comments Source POCT URINALYSIS W SPECIFIC GRAVITY 2021-03-16 15:41:00 Test Item Value Reference Range Interpretation Comme nts POCT U SP GRAV (test code = 3255) 1.010 mg/dl 1.005-1.025 POCT PH U (test code = 3254) 6 mg/dl 5-8 POCT U LEUK EST (test code = 3263) trace Negative - Negative POCT U NIT (test code = 3262) neg Negative - Negative POCT U PROT (test code = 3259) trace Negative - Negative POCT U GLU (test code = 3256) normal Negative - Negative POCT U KETONE (test code = 3258) neg Negative - Negative POCT U UROBILI (test code = 3260) normal 0.2-1 POCT U BILI (test code = 3261) neg Negative - Negative POCT U BLD (test code = 3257) trace Negative - Negative POCT U COLOR (test code = 3266) pale yellow POCT U APPEAR (test code = 3267) [facility]y [facility]CIFIC [id number] 15:41:00 Test Item Value Reference Range Interpretation Comments POCT U SP GRAV (test code = 1.010 mg/dl 1.005-1.025 3255) POCT PH U (test code = 3254) 6 mg/dl 5-8 POCT U LEUK EST (test code = trace Negative - Negative 3263) POCT U NIT (test code = 3262) neg Negative - Negative POCT U PROT (test code = trace Negative - Negative 3259) POCT U GLU (test code = 3256) normal Negative - Negative POCT U KETONE (test code = neg Negative - Negative 3258) POCT U UROBILI (test code = normal 0.2-1 3260) POCT U BILI (test code = neg Negative - Negative 3261) POCT U BLD (test code = 3257) trace Negative - Negative POCT U COLOR (test code = pale yellow 3266) POCT U APPEAR (test code = cloudy 3267) [facility]
[2021-03-27] MEDS ORDERED: METOCLOPRAMIDE 10 MG/2mL INJ ONE (17:51)
[2021-03-27] MEDS ORDERED: NA CHLORIDE 0.9% 250 ML ONE (17:51)
[2021-03-27] MEDS ORDERED: DIPHENHYDRAMINE 50 MG/ML VIAL ONE ×2 (17:51→20:18)
[2021-03-27 18:43] LABS: Absolute Lymphocytes (CBC) 1.8 K/uL (0.7-4.9); Basophils % 0.8 % (0-1.3); Hematocrit 35.8 % (36.0-45.0); Lymphocytes % 22.4 % (15.3-44.8); MPV 7.8 fL (7.6-11.3)
[2021-03-27 18:49] LABS: Albumin 3.7 g/dL (3.4-5.0); Bilirubin Direct 0.1 mg/dL (0-0.2); Bilirubin Total 0.4 mg/dL (0.2-1.0); Potassium 3.5 mmol/L (3.5-5.1); Protein, Total 7.2 g/dL (6.4-8.2)
[2021-03-27 19:22] LABS: Urine Blood 2+ (Negative); Urine Glucose Negative (Negative); Urine Protein Negative (Negative); Urine Specific Gravity 1.015 (1.005-1.030)
[2021-03-27] MEDS ORDERED: FENTANYL CITR 100 MCG/2 ML ONE (19:25)
--- NOTE | 2021-03-27 21:37 | RAD REPORT ---
EXAM DESCRIPTION: CT - Abdomen Pelvis W Contrast - 03/27/2021 9:17 pm CLINICAL HISTORY: lower abdominal pain COMPARISON: Abdomen Pelvis W Contrast dated 02/23/2021 TECHNIQUE: Biphasic, helical CT imaging of the abdomen and pelvis was performed following 100 ml non -ionic IV contrast. No oral contrast administered. All CT scans are performed using dose optimization technique as appropriate and may include automated exposure control or mA/KV adjustment according to patient size. FINDINGS: No suspicious findings in the lung bases. The liver, spleen, and pancreas show no suspicious findings. Gallbladder and biliary tree are also wi thout suspicious finding. Symmetric renal function is seen with no hydronephrosis or suspicious renal mass. Punctate nonobstruc ting calyx calculi are present similar to comparison. No pyelonephritis or acute parenchymal process. No bladder abnormalities. No adrenal abnormalities. No uterine abnormality. Small ovarian cysts are present. No cyst rupture or hemorrhage findings. No dilated bowel loops or bowel wall thickening. No appendicitis. No free air, free fluid or inflamma tory stranding. No hernia, mass or bulky lymphadenopathy. Postsurgical changes noted from prior C-se ction No suspicious bony findings. IMPRESSION: Contrast enhanced CT abdomen and pelvis showing no acute or emergent finding. No significant change from the comparison.
--- NOTE | 2021-03-27 21:44 | RAD REPORT ---
EXAM DESCRIPTION: US - Pelvis Complete - 03/27/2021 8:26 pm CLINICAL HISTORY: pelvic COMPARISON: Transvaginal Study Probe dated 10/14/2020 TECHNIQUE: Transabdominal pelvic sonography was performed. FINDINGS: Uterus is normal size with no myometrial mass lesion. Endometrial stripe is normal thickne ss for age with no endometrial mass or polyp identifiable. Endometrium-myometrium interface is preser elisabet. A 17 millimeter cyst or dominant follicle is seen in right ovary. No cyst rupture or hemorrhage seen. Doppler evaluation shows normal blood flow in the right ovarian stroma. Normal blood flow seen in a normal size left ovary. No adnexal abnormalities. No blood or fluid in the cul de sac. IMPRESSION: Right ovarian 17 millimeter cyst or follicle. Exam is otherwise unremarkable.
--- NOTE | 2021-03-27 21:49 | ER ---
Nurse's Notes [facility] Name: Natanael Dyson Age: 26 yrs Sex: Female : 1995 Arrival Date: 03/27/2021 Time: 17:35 Bed 15 Private MD: Diagnosis: Other ovarian cysts;Pelvic and perineal pain Presentation: 03/27 17:38 Chief complaint: EMS states: Pt. arrives due to Left upper quadrant pain for the last jt3 day. Pt. endorses nausea and vomiting. Alert and oriented x4. Denies chest pain or SOB. Pt. states she is not . EMS gave pt. 4mg of zofran and 50mcg of fentanyl. Coronavirus screen: Vaccine status: Patient reports receiving the 2nd dose of the covid vaccine. Ebola Screen: Patient negative for fever greater than or equal to 101.5 degrees Fahrenheit, and additional compatible Ebola Virus Disease symptoms Patient denies exposure to infectious person. Patient denies travel to an Ebola-affected area in the 21 days before illness onset. Initial Sepsis Screen: Does the patient meet any 2 criteria? No. Patient's initial sepsis screen is negative. Does the patient have a suspected source of infection? No. Patient's initial sepsis screen is negative. Risk Assessment: Do you want to hurt yourself or someone else? Patient reports no desire to harm self or others. Onset of symptoms was March 26, 2021. 17:38 Method Of Arrival: EMS: [facility] jt3 17:38 Acuity: THIERNO 3 jt3 Triage Assessment: 17:42 General: Appears in no apparent distress. Behavior is calm, cooperative. Pain: jt3 Complains of pain in abdomen Pain does not radiate. Pain currently is 7 out of 10 on a pain scale. Quality of pain is described as throbbing, Pain began 1 day ago. Historical: - Allergies: 17:42 Compazine; jt3 17:42 Haldol; jt3 17:42 Latex, Natural Rubber; jt3 17:42 Reglan; jt3 - PMHx: 17:42 Tachycardia; Migraines; Kidney stones; Hypertensive disorder; COVID; Asthma; jt3 - Immunization history:: Adult Immunizations up to date. - Social history:: Smoking status: Patient denies any tobacco usage or history of. Screenin:46 Abuse screen: Denies threats or abuse. Denies injuries from another. Nutritional jt3 screening: No deficits noted. Tuberculosis screening: No symptoms or risk factors identified. Fall Risk None identified. Assessment: 17:46 General: Appears in no apparent distress. Behavior is calm, cooperative. Neuro: No jt3 deficits noted. Cardiovascular: Rhythm is sinus tachycardia. Respiratory: No deficits noted. GI: Abd is soft X 4 quads Abd is non tender X 4 quads Reports upper abdominal pain, nausea, vomiting. GI: Abdomen is round. : No deficits noted. 18:45 Reassessment: Pt. still reports abdominal pain. Nausea has improved. RISSA Hi was jt3 notified. Vital Signs: 17:38 BP 137 / 84; Pulse 102; Resp 17; Temp 97.8(O); Pulse Ox 99% on R/A; Weight 66.22 kg; jt3 Height 5 ft. 1 in. (154.94 cm); 19:01 BP 131 / 85; Pulse 108; Resp 17; Pulse Ox 100% ; jt3 19:30 BP 121 / 79; Pulse 100; Resp 20; Temp 98.0(O); Pulse Ox 100% on R/A; Pain 8/10; kc4 22:03 BP 130 / 80; Pulse 98; Resp 20; Temp 98.6; Pulse Ox 100% on R/A; Pain 0/10; kc4 17:38 Body Mass Index 27.59 (66.22 kg, 154.94 cm) jt3 ED Course: 17:35 Patient arrived in ED. aa5 17:37 Ham Lopez, ROSEY is Primary Nurse. jt3 17:39 Destin Davis NP is PHCP. pm1 17:39 Harjit Samson MD is Attending Physician. pm1 17:41 Kolton Nazario PA is PHCP. pm1 17:42 Triage completed. jt3 17:42 Arm band placed on right wrist. jt3 17:46 Patient has correct armband on for positive identification. Bed in low position. Call jt3 light in reach. Side rails up X 1. 17:46 No provider procedures requiring assistance completed. Inserted saline lock: 20 gauge jt3 in right antecubital area, using aseptic technique. 20:26 US Pelvis Complete In Process Unspecified. EDMS 21:16 CT Abd/Pelvis - IV Contrast Only In Process Unspecified. EDMS 22:02 IV discontinued, intact, bleeding controlled, No redness/swelling at site. Pressure kc4 dressing applied. Administered Medications: 18:01 Drug: diphenhydrAMINE 12.5 mg Route: IVP; Site: right antecubital; jt3 19:17 Follow up: Response: No adverse reaction jt3 18:38 Drug: NS 0.9% 250 ml Route: IV; Rate: bolus; Site: right antecubital; jt3 18:38 Drug: Reglan (metoCLOPramide) 10 mg Route: IVP; Site: right antecubital; jt3 19:16 Follow up: Response: No adverse reaction jt3 19:29 Drug: fentaNYL (PF) 25 mcg Route: IVP; Site: right antecubital; kc4 20:32 Follow up: Response: No adverse reaction; Pain is decreased kc4 20:32 Drug: Benadryl (diphenhydrAMINE) 25 mg Route: IVP; Site: right antecubital; kc4 20:32 Follow up: Response: No adverse reaction; Anxiety decreased kc4 Outcome: 21:48 Discharge ordered by . leeann 22:02 Discharged to home ambulatory. kc4 22:02 Condition: improved 22:02 Discharge instructions given to patient, Instructed on discharge instructions, follow up and referral plans. medication usage, Demonstrated understanding of instructions, follow-up care, medications, wound care, Prescriptions given X 3. 22:03 Patient left the ED. kc4 Signatures: Dispatcher [employer] EDMS Kolton Nazario PA PA jmm Calderon, Audri, RN RN aa5 Destin Davis NP WAITER WAITRESS pm1 Arcelia Hawkins kc4 Ham Lopez RN RN jt3 Corrections: (The following items were deleted from the chart) 20:33 20:33 PSHx: Ligation of fallopian tube; kc4 kc4 20:33 20:33 PSHx: section; kc4 kc4
--- NOTE | 2021-03-27 21:49 | EDPHYS ---
Physician Documentation [facility] Name: Natanael Dyson Age: 26 yrs Sex: Female : 1995 Arrival Date: 03/27/2021 Time: 17:35 Bed 15 Private MD: ED Physician Harjit Samson HPI: 03/27 17:36 This 26 yrs old Female presents to ER via EMS with complaints of Vomiting. jmm 17:36 Onset: The symptoms/episode began/occurred acutely. Possible causes: unknown. The jmm symptoms are aggravated by nothing. The symptoms are alleviated by nothing. Associated signs and symptoms: Pertinent positives: abdominal pain, nausea, vomiting. The patient has experienced similar episodes in the past. Historical: - Allergies: 17:42 Compazine; jt3 17:42 Haldol; jt3 17:42 Latex, Natural Rubber; jt3 17:42 Reglan; jt3 - PMHx: 17:42 Tachycardia; Migraines; Kidney stones; Hypertensive disorder; COVID; Asthma; jt3 - Immunization history:: Adult Immunizations up to date. - Social history:: Smoking status: Patient denies any tobacco usage or history of. ROS: 17:36 Constitutional: Negative for fever, chills, and weight loss, Cardiovascular: Negative jmm for chest pain, palpitations, and edema, Respiratory: Negative for shortness of breath, cough, wheezing, and pleuritic chest pain. 17:36 Abdomen/GI: Positive for abdominal pain, nausea and vomiting. 17:36 All other systems are negative. Exam: 17:36 Constitutional: This is a well developed, well nourished patient who is awake, alert, jmm and in no acute distress. Head/Face: atraumatic. Eyes: EOMI, no conjunctival erythema appreciated ENT: Moist Mucus Membranes Neck: Trachea midline, Supple Chest/axilla: Normal chest wall appearance and motion. Cardiovascular: Regular rate and rhythm. No edema appreciated Respiratory: Normal respirations, no respiratory distress appreciated 17:36 Back: Normal ROM Skin: General appearance color normal MS/ Extremity: Moves all extremities, no obvious deformities appreciated, no edema noted to the lower extremities Neuro: Awake and alert, normal gait Psych: Behavior is normal, Mood is normal, Patient is cooperative and pleasant 17:36 Abdomen/GI: Inspection: abdomen appears normal, Bowel sounds: normal, Palpation: soft, moderate abdominal tenderness, in the right lower quadrant. Vital Signs: 17:38 BP 137 / 84; Pulse 102; Resp 17; Temp 97.8(O); Pulse Ox 99% on R/A; Weight 66.22 kg; jt3 Height 5 ft. 1 in. (154.94 cm); 19:01 BP 131 / 85; Pulse 108; Resp 17; Pulse Ox 100% ; jt3 19:30 BP 121 / 79; Pulse 100; Resp 20; Temp 98.0(O); Pulse Ox 100% on R/A; Pain 8/10; kc4 22:03 BP 130 / 80; Pulse 98; Resp 20; Temp 98.6; Pulse Ox 100% on R/A; Pain 0/10; kc4 17:38 Body Mass Index 27.59 (66.22 kg, 154.94 cm) jt3 MDM: 17:40 Patient medically screened. pm1 21:47 Data reviewed: vital signs, nurses notes. Counseling: I had a detailed discussion with leeann the patient and/or guardian regarding: the historical points, exam findings, and any diagnostic results supporting the discharge/admit diagnosis, lab results, radiology results, the need for outpatient follow up, to return to the emergency department if symptoms worsen or persist or if there are any questions or concerns that arise at home. 03/27 17:36 Order name: Basic Metabolic Panel; Complete Time: 18:55 [facility] 03/27 17:36 Order name: CBC with Diff; Complete Time: 18:55 [facility] 03/27 17:36 Order name: Hepatic Function; Complete Time: 18:55 [facility] 03/27 17:36 Order name: Lipase; Complete Time: 18:55 [facility] 03/27 17:36 Order name: Test, Serum; Complete Time: 19:06 [facility] 03/27 19:21 Order name: Urine Dipstick-Ancillary; Complete Time: 19:23 [facility] 03/27 19:07 Order name: CT Abd/Pelvis - IV Contrast Only; Complete Time: 21:46 [facility] 03/27 19:07 Order name: US Pelvis Complete; Complete Time: 21:46 [facility] 03/27 17:36 Order name: IV Saline Lock; Complete Time: 18:39 [facility] 03/27 17:36 Order name: Labs collected and sent; Complete Time: 18:39 [facility] 03/27 18:57 Order name: Urine Dipstick-Ancillary (obtain specimen); Complete Time: 19:30 [facility] 03/27 18:57 Order name: Urine Test (obtain specimen); Complete Time: 19:30 [facility] Administered Medications: 18:01 Drug: diphenhydrAMINE 12.5 mg Route: IVP; Site: right antecubital; jt3 19:17 Follow up: Response: No adverse reaction jt3 18:38 Drug: NS 0.9% 250 ml Route: IV; Rate: bolus; Site: right antecubital; jt3 18:38 Drug: Reglan (metoCLOPramide) 10 mg Route: IVP; Site: right antecubital; jt3 19:16 Follow up: Response: No adverse reaction jt3 19:29 Drug: fentaNYL (PF) 25 mcg Route: IVP; Site: right antecubital; kc4 20:32 Follow up: Response: No adverse reaction; Pain is decreased kc4 20:32 Drug: Benadryl (diphenhydrAMINE) 25 mg Route: IVP; Site: right antecubital; kc4 20:32 Follow up: Response: No adverse reaction; Anxiety decreased kc4 Disposition: 03/28 07:04 Co-signature as Attending Physician, Harjit Samson MD I agree with the assessment and rn plan of care. Attestation: The patient's history, exam findings, diagnostics, and a summary of any interventions or procedures was reviewed in detail with Kolton KWOK. Disposition Summary: 03/27/21 21:48 Discharge Ordered Location: Home [facility] Condition: Stable [facility] Diagnosis - Other ovarian cysts [facility] - Pelvic and perineal pain [facility] Followup: [facility] - With: Private Physician - When: 2 - 3 days - Reason: Recheck today's complaints, Continuance of care, Re-evaluation by your physician Discharge Instructions: - Discharge Summary Sheet [facility] - Abdominal Pain, Adult [facility] - Pelvic Pain, Female [facility] Forms: - Medication Reconciliation Form [facility] - Thank You Letter [facility] - Antibiotic Education [facility] - Prescription Opioid Use [facility] Prescriptions: - ondansetron 4 mg Oral tablet,disintegrating - take 1 tablet by ORAL route every 4-6 hours; 20 tablet; Refills: 0, Product [facility] Selection Permitted - Ibuprofen 800 mg Oral Tablet - take 1 tablet by ORAL route every 8 hours As needed take with food; 30 tablet; [facility] Refills: 0, Product Selection Permitted - orphenadrine citrate 100 mg Oral Tablet Sustained Release - take 1 tablet by ORAL route 2 times per day As needed; 20 tablet; Refills: 0, [facility] Product Selection Permitted Signatures: Dispatcher [employer] EDKolton Hampton PA PA [facility] Harjit Samson MD MD rn Calderon, Audri RN RN aa5 Destin Davis NP [employer] pm1 Arcelia Hawkins kc4 Ham Lopez RN RN jt3 Corrections: (The following items were deleted from the chart) 03/27 20:33 20:33 PSHx: Ligation of fallopian tube; kc4 kc4 20:33 20:33 PSHx: section; kc4 kc4
[2021-03-27 23:58] VITALS: O2SAT 100
[2021-03-28 00:14] VITALS: BP 130/80; TEMP 98.6
== END 2021-03-27 22:03 | disposition home or self-care (01) ==
LOC: ER 17:24
DX: N83.299 Other ovarian cyst, unspecified side (principal); I10 Essential (primary) hypertension; Z88.5 Allergy status to narcotic agent; Z88.8 Allergy status to other drugs, medicaments and biological substances; Z91.040 Latex allergy status; Z91.048 Other nonmedicinal substance allergy status
CPT/HCPCS: 85025; 80048; 36415; 84703; 80076; 81003; 83690; 74177; 76856; 96375; 96374; 99284; Q9967; J2765; J1200 ×2; J3010; J7050

== ENCOUNTER 2021-05-24 01:16 | Emergency (ER) | payer OTHER ==
--- OUTSIDE RECORDS SUMMARY | 2021-05-24 01:20 | XMS REPORT | Continuity of Care Document ---
:1995 Author Organization [facility] t Address [address] [place] [address] Care Team Providers Name Role Phone Cristina FELIX, A Primary Care Physician DEYVI Attending Clinician Unavailable Kassandra EVANS Attending Clinician Unavailable Delroy FELIX, K.H. Attending Clinician YASMEEN Attending Clinician Unavailable Dennis HENDRICKS Attending Clinician Sharlene Soares Attending Clinician Doctor Unassigned, Name Attending Clinician Unavailable Khang FELIX, Cam Attending Clinician Krystle FELIX, T Attending Clinician Coretta FELIX Attending Clinician Payers Payer Name Policy Type Policy Number Effective Date Expiration Date [facility] [id number] 2019 MEDICAID 00:00:00 Problems Condition Condition Condition Status Onset Resolution Last Treating Co mments Source Name Details Category Date Date Treatment Clinician Date Microhemat Microhemat Disease Active 2020-05 U nivers uria uria - ity of 00:00: [address] B12 B12 Disease Active 2020-05 Univers deficiency deficiency -06 it y of (suboptima [place]subopt[place] l level 00 Medical <400) <400) Branch Absence of Absence of Disease Active U nivers menstruati menstruati 5-27 it y of on on 00:00: [address] Pelvic Pelvic Disease Active Univers pain pain 4-27 ity of 00:00: [place] [facility] Insomnia, Insomnia, Disease Active Uni vers unspecifie unspecifie 4- it y of d type d type 00:00: [place] 00 Medical [facility] Abdominal Abdominal Disease Active 2019-05 Uni vers pain pain 2- ity of 00:00: Medical Branch Tachycardi Tachycardi Disease Active 2019-05 U nivers a a 2- ity of 00:00: Medical Branch Anxiety Anxiety Disease Active Univers disorder, disorder, 8- ity of unspecifie unspecifie [place] type d type 00 [facility] Other Other Disease Active Univers depression depression 4- it y of 00:00: [place] [facility] Visual Visual Disease Resolve 2019-052020-09-06 2020-09-06 Univers changes changes d 2- 00:00:00 21:27:31 ity of 00:00: Medical Branch Headache Headache Disease Resolve 2019-052020-09-06 2020-09-06 Univers d 2- 00:00:00 21:27:31 ity of 00:00: [place] [facility] Sinus Sinus Disease Resolve 2019-052020-09-06 [...] [place] and advice and advice 00 Ga dical for for Branch contracept contracept bonifacio bonifacio management management Routine Routine Disease Resolve 2020-01-05 2020-01-05 Univers d 4-02 00:00:00 22:37:57 ity of follow[place]up [place]up [place] Back pain Back pain Disease Resolve 2020-01-05 2020-01-05 Univers d 4- 00:00:00 22:37:59 ity of 00:00: [place] [facility] History of History of Disease Resolve 2018-052020-01-05 2020-01-05 Univers tubal tubal d 07-09 00:00:00 22:37:56 ity of ligation ligation 00:00: 00 Medical Branch Anxiety Anxiety Disease Resolve 2018-052020-01-05 2020-01-05 Univers during during d 2- 00:00:00 22:37:53 [place] second 00 [facility] trimester, trimester, Br anch antepartum [...] 00 Me dical born in born in [facility] hospital by by delivery delivery Normal Normal Disease Resolve 2019-08-13 2019-08-13 Univers labor labor d 3-10 00:00:00 16:34:03 ity of 00:00: [place] 00 Medical Branch 37 weeks 37 weeks Disease Resolve 2019-08-13 2019-08-13 Univers gestation gestation d 1-02 00:00:00 16:51:42 ity of of of 00:00: [place] 00 [facility] Branch Gastroesop Gastroesop Disease Resolve 2018-052019-08-13 2019-08-13 Univers hageal hageal d 2- 00:00:00 16:33:48 ity of reflux in reflux in 00[place] [facility] Branch Supervisio Supervisio Disease Resolve 2019-08-13 2019-08-13 Univers n of high n of high d 02-06 00:00:00 16:32:56 ity of risk risk 00:00: [place] 00 [facility] in third in third Branch trimester trimester Multiparit Multiparit Disease Resolve 2019-08-13 2019-08-13 Univers y y d 02-06 00:00:00 16:33:04 ity of 00:00: [place] 00 Medical Branch History of History of Disease Resolve 2019-08-13 2019-08-13 Univers d 02-06 00:00:00 16:33:12 ity of delivery delivery 00:00: [place] 00 Medical Branch History of History of Disease Resolve 2019-08-13 2019-08-13 Univers d 02-06 00:00:00 16:33:20 it y of section section 00:00: [place] 00 Medical Branch History of History of Disease Resolve 2019-08-13 2019-08-13 Univers d 02-06 00:00:00 16:33:21 ity of 00:00: [place] 00 Medical Branch IUGR IUGR Disease Resolve [...] d 2-11 00:00:00 12:41:46 ity of 00:00: [place] 00 Medical Branch Upper Upper Disease Resolve 2019-07-21 2019-07-21 Univers respirator respirator d 2-11 00:00:00 12:43:06 ity of y tract y tract 00:00: [place] infection, infection, 00 Me dical unspecifie unspecifie Br anch d type d type Pain of Pain of Disease Resolve 2019-07-21 2019-07-21 Univers round round d 1- 00:00:00 12:42:49 ity of ligament ligament 00:00: [place] during during 00 Medical Bran ch Previous Previous Disease Resolve 2019-07-21 2019-07-21 Univers d 1-19 00:00:00 12:42:55 it y of delivery delivery 00:00: [place] affecting affecting 00 [facility] , , Br anch antepartum antepartum Disease [...] , [place] ante[facility] 39 weeks 39 weeks Disease Resolve 2019-05-30 2019-05-30 Univers gestation gestation d 1-17 00:00:00 21:44:45 ity of of of 00:00: [place] 00 [facility] Branch Disease Resolve 2019-05-28 2019-05-29 Univers uterine uterine d 1-02 00:00:00 05:15:02 ity of contractio contractio 00:[place] in 00 Medical second second Branch trimester, trimester, antepartum antepartum Candidiasi Candidiasi Disease Resolve 2018-052019-05-28 2019-05-29 Univers s of vulva s of vulva d 1-18 00:00:00 05:14:52 ity of and vagina and [...] s Branch METOCLOP DRUG Active Med Anxiety 2019-0 Univers RAMIDE INGREDI 07-11 ity of HCL 00:00: [place] 00 Medical Branch Metoclop Propensi Active Anxiety 2019-0 Patient Univ ers ramide ty to 07-11 says she ity of Hcl adverse 00:00: gets [place] reaction 00 figity, Medical s angry and Branch mean Social History Social Habit Start Date Stop Date Quantity Comments Source History [facility]NC University o f Alcohol Std [place] [facility] Drinks Branch History [facility] University o f Alcohol Binge [place] [facility] al Branch Exposure to Not sure [facility] SARS-CoV-2 [place] [facility] (event) Branch History [facility] University o f Alcohol Comment [place] [facility] ical Branch Alcohol intake 2021-04-27 2021-04-27 Ex-drinker University of 00:00:00 00:00:00 (finding) [place] [facility] Tobacco use and 2019-02-06 2019-02-06 Never used Universit y of exposure 00:00:00 00:00:00 [place] [facility] History SDOH 2019-02-06 2019-02-06 1 University o f Alcohol Frequency 00:00:00 00:00:00 [facility] edical Branch Sex Ass[birth year] At [birth year] Universit y of 00:00:00 00:00:00 [facility] Branch Smoking Status Start Date Stop Date Source Never smoker [facility] Medical Branch Medications Ordered Filled Start Stop Current Ordering Indication Dosage Frequency Signature Comments Components Source Medication Medication Date Date Medication? Clinician (SIG) Name Name losartan 50 2020-05 Yes 50mg Take 1 Univ ers mg tablet 2-30 tablet by ity o f 00:00: mouth 2 [place] 00 (two) Medical times Branch daily. carvediloL 2020-05 Yes 25mg Take 1 Unive rs 25 mg 2-30 tablet by ity of tablet 00:00: mouth 2 [place] 00 (two) Medical times Branch daily with meals. losartan 50 2020-05- No 50mg Take 1 Uni vers mg tablet 2-28 12-30 tablet by ity of 00:00: 00:00 mouth 2 [place] 00 :00 (two) Medical times Branch daily. carvediloL 2020-05 No 25mg Take 1 Univ ers 25 mg 2-28 12-30 tablet by ity of tablet 00:00: 00:00 mouth 2 [place] 00 :00 (two) Medical times Branch daily with meals. methocarbam 2020-05 Yes [id number] 500mg Take 1 Univers oL 2-21 tablet by ity of (ROBAXIN) 00:00: mouth [place] 500 mg 00 every 6 Medical tablet (six) Branch hours as needed (MUSCLE SPASM). methocarbam 2020-05 Yes [id number] 500mg Take 1 Univers oL 2-21 tablet by ity of (ROBAXIN) 00:00: mouth [place] 500 mg 00 every 6 Medical tablet (six) Branch hours as needed (MUSCLE SPASM). vitamin 2020-05 Yes [id number] 500ug Take 1 Un sushant B-12 1-06 tablet by ity of (VITAMIN 00:00: mouth [place] B-12) 500 00 daily. Medical mcg tablet Branch vitamin 2020-05 Yes [id number] 500ug Take 1 Un sushant B-12 1-06 tablet by ity of (VITAMIN 00:00: mouth [place] B-12) 500 00 daily. Medical mcg tablet Branch methylPREDN 2020-05 Yes [id number] Follow Univers ISolone 4 1-04 package ity of mg tablets 00:00: [place] methylPREDN 2020-05 Yes [id number] Follow Univers ISolone 4 1-04 package ity of mg tablets 00:00: directions [place] [facility] [place] fluticasone Yes [id number] 2{puff} Inhale 2 Univers propion-chel 9-30 Puffs 2 ity o f meteroL 00:00: (two) [place] 115-21 00 times Medical mcg/actuati daily. Branch on inhaler Rinse mouth after each use. albuterol Yes [id number] 2.5mg Inhale 3 Univers 2.5 mg /3 9-30 mL every 6 ity of mL (0.083 00:00: (six) [place] %) 00 hours as Medical nebulizer needed for Bran ch solution Wheezing or Shortness of Breath. fluticasone Yes [id number] 2{puff} Inhale 2 Univers propion-chel 9-30 Puffs 2 ity o f meteroL 00:00: (two) [place] 115-21 00 times Medical mcg/actuati daily. Branch on inhaler Rinse mouth after each use. albuterol Yes [id number] 2.5mg Inhale 3 Univers 2.5 mg /3 9-30 mL every 6 ity of mL (0.083 00:00: (six) [place] %) 00 hours as Medical nebulizer needed for Bran ch solution Wheezing or Shortness of Breath. albuterol Yes [id number] 2{puff} Inhale 2 Univers 90 9- [id number] Puffs ity of mcg/actuati 00:00: every 4 [place] as on inhaler 00 (four) Medical hours as Branch needed for Wheezing or Shortness of Breath. albuterol Yes [id number] 2{puff} Inhale 2 Univers 90 9- [id number] Puffs ity of mcg/actuati 00:00: every 4 [...] y of tablet 00:00: type mouth at [place] 00 bedtime. Medical Branch LOESTRIN FE Yes [...] Medical 20 mg QPM Branch methocarbam Yes [employer] of 500mg Take 1 Univers oL 4-08 [...] ity of tablet 00:00: mouth 2 [place] (two) Medical times Branch daily. Immunizations Ordered Filled Immunization Date Status Comments Sour e Immunization Name Name Influenza Virus 2020-05-19 Completed Universit y of Vaccine 00:00:00 [facility] Influenza Virus 2020-05-19 Completed Universit y of Vaccine 00:00:00 [facility] Influenza Virus 2020-05-19 Completed Universit y of Vaccine 00:00:00 [facility] Influenza Virus 2020-05-16 Completed Universit y of Vaccine Recomb Quad 00:00:00 [place] [facility] IM, Preserv and ABX Branc h Free 18-64 YRS Influenza Virus 2020-05-16 Completed Universit y of Vaccine Recomb Quad 00:00:00 [facility] IM, Preserv and ABX Branc h Free 18-64 YRS Influenza Virus 2020-05-16 Completed Universit y of Vaccine Recomb Quad 00:00:00 [facility] IM, Preserv and ABX Branc h Free 18-64 YRS TDAP (ADACEL) 2019-05-21 Completed University of VACCINE 00:00:00 [facility] TDAP (ADACEL) 2019-05-21 Completed University of VACCINE 00:00:00 [facility] TDAP (ADACEL) 2019-05-21 Completed University of VACCINE 00:00:00 [facility] Influenza Virus 2019-02-06 Completed Universit y of Vaccine Quad .5 mL 00:00:00 [facility] 6+ MO Branch Influenza Virus 2019-02-06 Completed Universit y of Vaccine Quad .5 mL 00:00:00 [facility] 6+ MO Branch Influenza Virus 2019-02-06 Completed Universit y of Vaccine Quad .5 mL 00:00:00 [facility] 6+ MO Branch Procedures This patient has no known procedures. Plan of Care Planned Activity Planned Date Details Comments Source Future Scheduled 2029-05-21 DTaP,Tdap,and Td Univers ity of [place] Test 00:00:00 Vaccines (2 - Td) Medical Br anch [code = DTaP,Tdap,and Td Vaccines (2 - Td)] Future Scheduled 2021-09-06 Depression screening Uni versity of [place] Test 00:00:00 (procedure) [code = Medical Branch 322003074] Future Scheduled 2016-02-19 Screening for [facility] Test 00:00:00 malignant neoplasm Medical B ranch of cervix (procedure) [code = 993282914] Future Scheduled 2013 Hepatitis C [facility] Test 00:00:00 screening Medical Branch (procedure) [code = 495482836] Future Scheduled 2011 SARS-CoV-2 [facility] Test 00:00:00 (COVID-19) Vaccine Medical B ranch (1) [code = SARS-CoV-2 (COVID-19) Vaccine (1)] Future Scheduled 2006 HPV VACCINES (1 - Univer [facility] Test 00:00:00 2-dose series) [code Medical Branch = HPV VACCINES (1 - 2-dose series)] Encounters Start End Encounter Admission Attending Care Care Encounter Source Date/Time Date/Time Type Type Clinicians Facility Department ID 2021-06-06 2021-06-06 [id number] Univers 11:15:00 11:15:00 TETO [id number] [facility] 2021-05-23 2021-05-23 Outpatient R [facility] [id number] Univers 10:00:00 10:00:00 [id number] [facility] 2021-05-23 2021-05-23 Outpatient R [facility] [id number] Univers 10:00:00 10:00:00 [facility] 2021-05-16 2021-05-16 Outpatient R DEYVI [facility] [id number] Univers 09:00:00 09:00:00 TETO [facility] 2021-05-10 2021-05-10 Outpatient R CRISTINA [facility] [id number] Univers 13:00:00 13:00:00 WONDIFUL [place] o f [facility] 2021-05-09 2021-05-09 [facility] [id number] Univers 00:00:00 00:00:00 Secure [facility] Rad RICHARDS [id number] [facility] [id number] Terrie CORREIA [phone] Ga dical NAL 059 [facility] 2021-05-08 2021-05-08 Outpatient R YASMEEN [facility] [id number] Univers 16:00:00 16:00:00 JE lechuga of [facility] 2021-05-08 2021-05-08 Patient Delroy [facility] [id number] Univers 00:00:00 00:00:00 Secure Msg Rad RICHARDS [id number] itchino [facility] [id number] Terrie s PROFESSIO [phone] Ga dical NAL 059 [facility] 2020-11-10 2020-11-10 Urgent Alissa Collins [facility] [id number] 18:42:46 19:53:[address] [facility] [id number] [place] [id number] Professio [phone] nal [address] 2020-10-31 2020-10-31 Emergency DevKaycee [facility] [id number] 18:52:00 22:15:00 Sharlene Richards [id number] [facility] [id number] [place] [id number] [id number] 2020-10-31 2020-10-31 Orders Doctor JORDAN [id number] 00:00:00 00:00:00 Only Unassigned, YAZMNI [id number] [place] [facility] [id number] 2020-10-20 2020-10-20 Emergency Dev, [facility] [id number] 14:02:00 17:13:00 Sharlene Richards [id number] [facility] [id number] [place] [id number] 2020-10-14 2020-10-14 [facility] Shelia Quiñonez [facility] [id number] 10:00:00 23:59:00 Remington Richards [id number] [facility] [id number] [place] [id number] [id number] 2020-10-09 2020-10-09 Emergency Krystle [facility] [id number] 12:00:00 15:57:00 Anna Richards [id number] [facility] [id number] [place] [id number] 2020-10-06 2020-10-06 Office Shelia Quiñonez [facility] [id number] 08:53:00 09:46:44 Visit Jm Richards [id number] [facility] [id number] Professio [id number] [address] 2020-03-04 2020-03-04 Lopez Barnes [facility] [id number] 00:00:00 00:00:00 MULTISPEC [id number] [place] [id number] CENTER [id number] AND ERIBERTO [facility] Results This patient has no known results.
[2021-05-24 02:43] LABS: Absolute Lymphocytes (CBC) 1.6 K/uL (0.7-4.9); Hematocrit 40.3 % (36.0-45.0); Lymphocytes % 17.8 % (15.3-44.8); MPV 7.7 fL (7.6-11.3); RBC Red Blood Cell Count 4.72 M/uL (3.86-4.86)
[2021-05-24 02:48] LABS: Potassium 3.5 mmol/L (3.5-5.1)
[2021-05-24] MEDS ORDERED: ONDANSETRON 4 MG/2 ML VIAL ONE (02:55)
[2021-05-24] MEDS ORDERED: NA CHLORIDE 0.9% 1,000 ML ONE (02:56)
[2021-05-24] MEDS ORDERED: KETOROLAC 30 MG/ML INJ ONE (02:56)
[2021-05-24 03:15] LABS: Urine Blood Trace-lysed (Negative); Urine Glucose Negative (Negative); Urine Protein Negative (Negative); Urine Specific Gravity 1.025 (1.005-1.030); Urine pH 5.5 (5.0-7.0)
--- NOTE | 2021-05-24 04:59 | ER ---
Nurse's Notes [facility] Name: Natanael Dyson Age: 26 yrs Sex: Female : 1995 Arrival Date: 05/24/2021 Time: 01:40 Bed 13 Private MD: Diagnosis: Contusion of back wall of thorax;Contusion of lower back and pelvis Presentation: 05/24 02:01 Chief complaint: Patient states: Fell off of horse at 2000 hours on 05/23/2019. Pain to tk1 left shoulder and thoracic back. Denies LOC. Took Tylenol 1000mg at 2100. Coronavirus screen: Patient denies having virus previously and has not been vaccinated. Coronavirus screen: Client denies travel out of the [place] in the last 14 days. At this time, the client does not indicate any symptoms associated with coronavirus-19. Ebola Screen: Patient negative for fever greater than or equal to 101.5 degrees Fahrenheit, and additional compatible Ebola Virus Disease symptoms Patient denies exposure to infectious person. Patient denies travel to an Ebola-affected area in the 21 days before illness onset. No symptoms or risks identified at this time. Initial Sepsis Screen: Does the patient meet any 2 criteria? No. Patient's initial sepsis screen is negative. Initial Sepsis Screen: Does the patient have a suspected source of infection? No. Patient's initial sepsis screen is negative. Risk Assessment: Do you want to hurt yourself or someone else? Patient reports no desire to harm self or others. Onset of symptoms was May 23, 2021 at 20:00. Care prior to arrival: None. Mechanism of Injury: Fall horse onto ground approximately 5 feet. 02:01 Method Of Arrival: Ambulatory tk1 02:01 Acuity: THIERNO 2 tk1 06:19 Care prior to arrival: None. Activity prior to arrival: None. tk1 06:24 Mechanism of Injury: Fall Fell from horse saddle to ground. approximately 5 feet. tk1 Triage Assessment: 02:34 General: Appears uncomfortable, well groomed, well nourished, Behavior is cooperative, tk1 restless. Pain: Complains of pain in left clavicle Pain does not radiate. Pain currently is 8 out of 10 on a pain scale. Quality of pain is described as sharp, Pain began 8 hours ago Is continuous, Alleviated by repositioning, Aggravated by repositioning, Noted to be restless, Also complains of no other associated symptoms. Musculoskeletal: Tenderness present in thoracic area left shoulder/clavicle area pain. Moved left arm to remove shirt without difficulty. Injury Description: No bruising or deformities noted. [facility]: 02:42 LMP 05/13/2021 tk1 Trauma Activation: Alert Physician: ED Physician; Name: Dr. Mark; Notified At: 02:10; Arrived At: Physician: General Surgeon; Name: ; Notified At: 02:10; Arrived At: Physician: Radiology; Name: ; Notified At: 02:10; Arrived At: Physician: Respiratory; Name: ; Notified At: 02:10; Arrived At: Physician: Lab; Name: ; Notified At: 02:10; Arrived At: Historical: - Allergies: 02:31 Compazine; tk1 02:31 Haldol; tk1 02:31 Latex, Natural Rubber; tk1 02:31 Reglan; tk1 - Home Meds: 02:31 losartan 50 mg oral tab 1 tab 2 times per day for hypertension [Active]; tk1 - PMHx: 02:31 Asthma; COVID; Hypertensive disorder; Kidney stones; Migraines; Tachycardia; tk1 - Immunization history:: Adult Immunizations not up to date, Client reports having NOT received the Covid vaccine. Last tetanus immunization: > 10 years ago Flu vaccine is not up to date. Patient has never been vaccinated. - Social history:: Smoking status: Patient denies any tobacco usage or history of. Screenin:00 Fall Risk None identified. No fall in past 12 months (0 pts). No secondary diagnosis (0 tk1 pts). IV access (20 points). Ambulatory Aid- None/Bed Rest/Nurse Assist (0 pts). Gait- Normal/Bed Rest/Wheelchair (0 pts) Mental Status- Oriented to own ability (0 pts). Total Thomas Fall Scale indicates No Risk (0-24 pts). 02:47 Abuse screen: Denies threats or abuse. Denies injuries from another. Nutritional tk1 screening: No deficits noted. Tuberculosis screening: No symptoms or risk factors identified. Never had TB. Possible symptoms: None. Primary Survey: 02:00 NO uncontrolled hemorrhage observed. A: Airway: patent. Breathing/Chest: Respiratory tk1 pattern: regular, Respiratory effort: spontaneous, unlabored, Breath sounds: clear, bilaterally. Chest inspection: symmetrical rise and fall of the chest. Circulation: Cardiac rhythm: sinus tachycardia Heart tones present. Pulses: palpable right radial artery, right brachial artery, right dorsalis pedis artery, left radial artery, left brachial artery and left dorsalis pedis artery. Skin color: pink, Skin temperature: warm, dry, Arterial Line:. Disability Alert. Exposure/Environment: All clothing and personal items were removed. Forensic evidence collection is not deemed to be indicated at this time. Items placed in patient belonging bag. There is no evidence of uncontrolled external bleeding. Obvious injury(ies) are noted at this time: Pain to left clavicle/shoulder and upper thoracic back. 03:05 Reassessment Airway Breathing/Chest Respiratory pattern Regular Respiratory effort tk1 Spontaneous Breath sounds Clear Chest inspection Symmetrical Circulation Heart rhythm Sinus tach Disability Alert. Assessment: 02:00 General: Appears uncomfortable, well nourished, Behavior is cooperative, restless. tk1 Pain: Complains of pain in left clavicle Pain currently is 8 out of 10 on a pain scale. Quality of pain is described as sharp, Pain began 8 hours ago. Pain: Complains of pain in thoracic area Pain currently is 8 out of 10 on a pain scale. Quality of pain is described as sharp, Pain began 8 hours ago Is continuous, Aggravated by repositioning, Noted to be restless. 03:21 Reassessment: No changes from previously documented assessment. Patient and/or family vc1 updated on plan of care and expected duration. Pain level reassessed. Patient states symptoms have not improved. 04:14 Reassessment: Patient continues to c/o of pain 8/[address] Mark updated. No new tk1 orders received. Vital Signs: 02:01 BP 134 / 100 LA Sitting (auto/reg); Pulse 113 MON; Resp 18 S; Temp 98.5(O); Pulse Ox tk1 100% on R/A; Weight 68.04 kg; Height 5 ft. 2 in. (157.48 cm); Pain 8/10; 02:42 BP 134 / 100 RA Sitting (auto/reg); Pulse 113 MON; Resp 18 S; Temp 98.5(O); Pulse Ox tk1 100% on R/A; 03:15 BP 122 / 82; Pulse 107; Resp 18; Pulse Ox 100% on R/A; vc1 04:15 BP 130 / 85 LA Sitting (auto/reg); Pulse 102 MON; Resp 16 S; Temp 98(O); Pulse Ox 100% tk1 on R/A; 06:25 BP 123 / 85 LA Sitting (auto/reg); Pulse 99 MON; Resp 16 S; Temp 98.4(O); Pulse Ox 100% tk1 on R/A; 02:01 Body Mass Index 27.44 (68.04 kg, 157.48 cm) tk1 Giovana Coma Score: 02:30 Eye Response: spontaneous(4). Verbal Response: oriented(5). Motor Response: obeys tk1 commands(6). Total: 15. 06:25 Eye Response: spontaneous(4). Verbal Response: oriented(5). Motor Response: obeys tk1 commands(6). Total: 15. Trauma Score (Adult): 02:30 Eye Response: spontaneous(1); Verbal Response: oriented(1); Motor Response: obeys tk1 commands(2); Systolic BP: > 89 mm Hg(4); Respiratory Rate: 10 to 29 per min(4); Jasper Score: 15; Trauma Score: 12 03:00 Eye Response: spontaneous(1); Verbal Response: oriented(1); Motor Response: obeys tk1 commands(2); Systolic BP: > 89 mm Hg(4); Respiratory Rate: 10 to 29 per min(4); Giovana Score: 15; Trauma Score: 12 04:15 Eye Response: spontaneous(1); Verbal Response: oriented(1); Motor Response: obeys tk1 commands(2); Systolic BP: > 89 mm Hg(4); Respiratory Rate: 10 to 29 per min(4); Giovana Score: 15; Trauma Score: 12 06:25 Eye Response: spontaneous(1); Verbal Response: oriented(1); Motor Response: obeys tk1 commands(2); Systolic BP: > 89 mm Hg(4); Respiratory Rate: 10 to 29 per min(4); Jasper Score: 15; Trauma Score: 12 ED Course: 01:40 Patient arrived in ED. bp1 01:53 Paula Mark MD is Attending Physician. sp3 02:00 Arm band placed on left wrist. Patient placed in the treatment room, on a stretcher, on tk1 pulse oximetry, Patient notified of wait time. 02:01 Paloma Ortiz is Primary Nurse. tk1 02:15 Inserted saline lock: 20 gauge in right antecubital area, using aseptic technique. tk1 02:29 Triage completed. tk1 03:00 Patient has correct armband on for positive identification. Placed in gown. Bed in low vc1 position. Call light in reach. Side rails up X 1. 03:27 Ice pack to injury. vc1 03:28 Patient maintains SpO2 saturation greater than 95% on room air. vc1 03:28 Thermoregulation: warm blanket given to patient. vc1 04:00 IV is patent, is intact. tk1 04:19 CT Chest, Abdomen, Pelvis - W/Contrast In Process Unspecified. EDMS 06:18 No provider procedures requiring assistance completed. IV discontinued, intact, tk1 bleeding controlled, No redness/swelling at site. Pressure dressing applied. Patient maintains SpO2 saturation greater than 95% on room air. Administered Medications: 03:06 Drug: NS 0.9% 1000 ml Route: IV; Rate: 1 bolus; Site: right antecubital; kd3 03:06 Drug: Ketorolac 30 mg Route: IVP; Site: right antecubital; kd3 03:06 Drug: Zofran (Ondansetron) 4 mg Route: IVP; Site: right antecubital; kd3 04:27 Drug: Dilaudid (HYDROmorphone) 1 mg Route: IVP; Site: right antecubital; tk1 Intake: 06:23 IV: 1000ml; Total: 1000ml. tk1 Output: 03:00 Urine: 100ml (Voided); Total: 100ml. tk1 06:23 Urine: 300ml; Total: 400ml. tk1 Outcome: 04:58 Discharge ordered by . sp3 06:22 Discharged to home ambulatory. tk1 06:22 Condition: improved 06:22 Discharge instructions given to patient, Instructed on discharge instructions, follow up and referral plans. no driving heavy equipment, medication usage, Demonstrated understanding of instructions, follow-up care, medications, Prescriptions given X 1. 06:23 Patient's length of stay in the Emergency Department was greater than 2 hours. tk1 Patient's length of stay was extended due to staffing issues within the emergency department. 06:27 Patient left the ED. tk1 Signatures: Dispatcher [employer] EDMS Andressa Josue Setul, MD MD sp3 Juany Santiago, RN RN kd3 Paloma Ortiz tk1 Eboni Ramey RN RN vc1 Corrections: (The following items were deleted from the chart) 04:17 04:15 Jasper Score=15, Trauma Score=12, tk1 tk1
--- NOTE | 2021-05-24 04:59 | EDPHYS ---
Physician Documentation [facility] Name: Natanael Dyson Age: 26 yrs Sex: Female : 1995 Arrival Date: 05/24/2021 Time: 01:40 Bed 13 Private MD: ED Physician Paula Mark HPI: 05/24 02:37 This 26 yrs old Female presents to ER via Ambulatory with complaints of Fall Injury, sp3 Back Pain. 02:37 26-year-old female with a history of multiple kidney stones, hypertension presents with sp3 right flank pain secondary to being thrown off a horse approximately 4 to 5 hours prior to arrival. Patient states that she went home and took Tylenol and try to sleep but was unable to secondary to increasing pain so she presents to the ED today. She denies gross hematuria, headache, neck pain and did not land on her head or neck. She also denies abdominal pain anteriorly, nausea, vomiting, diarrhea, other extremity pain, rash, or any other symptoms on ROS at this time. Trauma alert was called secondary to abnormal vital signs.. 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 Last tetanus immunization: > 10 years ago Flu vaccine is not up to date. Patient has never been vaccinated. - Social history:: Smoking status: Patient denies any tobacco usage or history of. ROS: 02:38 Constitutional: Negative for fever, chills, and weight loss, Eyes: Negative for injury, sp3 pain, redness, and discharge, ENT: Negative for injury, pain, and discharge, Neck: Negative for injury, pain, and swelling, Respiratory: Negative for shortness of breath, cough, wheezing, and pleuritic chest pain, MS/Extremity: Negative for injury and deformity, Skin: Negative for injury, rash, and discoloration, Neuro: Negative for headache, weakness, numbness, tingling, and seizure, Psych: Negative for depression, anxiety, suicide ideation, homicidal ideation, and hallucinations, Allergy/Immunology: Negative for hives, rash, and allergies, Endocrine: Negative for neck swelling, polydipsia, polyuria, polyphagia, and marked weight changes. 02:38 All other systems are negative. Exam: 02:39 Constitutional: This is a well developed, well nourished patient who is awake, alert, sp3 and in no acute distress. Head/Face: Normocephalic, atraumatic. Eyes: Pupils equal round and reactive to light, extra-ocular motions intact. Lids and lashes normal. Conjunctiva and sclera are non-icteric and not injected. Cornea within normal limits. Periorbital areas with no swelling, redness, or edema. ENT: Nares patent. No nasal discharge, no septal abnormalities noted. External auditory canals are clear. Oropharynx with no redness, swelling, or masses, exudates, or evidence of obstruction, uvula midline. Mucous membranes moist. Neck: Trachea midline, no thyromegaly or masses palpated, and no cervical lymphadenopathy. Supple, full range of motion without nuchal rigidity, or vertebral point tenderness. No Meningismus. Chest/axilla: Normal chest wall appearance and motion. Nontender with no deformity. No lesions are appreciated. Respiratory: Lungs have equal breath sounds bilaterally, clear to auscultation and percussion. No rales, rhonchi or wheezes noted. No increased work of breathing, no retractions or nasal flaring. Abdomen/GI: Soft, non-tender, with normal bowel sounds. No distension or tympany. No guarding or rebound. No evidence of tenderness throughout. Skin: Warm, dry with normal turgor. Normal color with no rashes, no lesions, and no evidence of cellulitis. MS/ Extremity: Pulses equal, no cyanosis. Neurovascular intact. Full, normal range of motion. Neuro: Awake and alert, GCS 15, oriented to person, place, time, and situation. Cranial nerves II-XII grossly intact. Motor strength 5/5 in all extremities. Sensory grossly intact. Cerebellar exam normal. Normal gait. Psych: Awake, alert, with orientation to person, place and time. Behavior, mood, and affect are within normal limits. 02:39 Cardiovascular: Patient is tachycardic but otherwise normal cardiovascular exam.. 02:39 Back: Patient has pain on the right flank region to palpation. There is no ecchymoses or other visualized signs of trauma.. Vital Signs: 02:01 BP 134 / 100 LA Sitting (auto/reg); Pulse 113 MON; Resp 18 S; Temp 98.5(O); Pulse Ox tk1 100% on R/A; Weight 68.04 kg; Height 5 ft. 2 in. (157.48 cm); Pain 8/10; 02:42 BP 134 / 100 RA Sitting (auto/reg); Pulse 113 MON; Resp 18 S; Temp 98.5(O); Pulse Ox tk1 100% on R/A; 03:15 BP 122 / 82; Pulse 107; Resp 18; Pulse Ox 100% on R/A; vc1 04:15 BP 130 / 85 LA Sitting (auto/reg); Pulse 102 MON; Resp 16 S; Temp 98(O); Pulse Ox 100% tk1 on R/A; 06:25 BP 123 / 85 LA Sitting (auto/reg); Pulse 99 MON; Resp 16 S; Temp 98.4(O); Pulse Ox 100% tk1 on R/A; 02:01 Body Mass Index 27.44 (68.04 kg, 157.48 cm) tk1 Giovana Coma Score: 02:30 Eye Response: spontaneous(4). Verbal Response: oriented(5). Motor Response: obeys tk1 commands(6). Total: 15. 06:25 Eye Response: spontaneous(4). Verbal Response: oriented(5). Motor Response: obeys tk1 commands(6). Total: 15. Trauma Score (Adult): 02:30 Eye Response: spontaneous(1); Verbal Response: oriented(1); Motor Response: obeys tk1 commands(2); Systolic BP: > 89 mm Hg(4); Respiratory Rate: 10 to 29 per min(4); Giovana Score: 15; Trauma Score: 12 03:00 Eye Response: spontaneous(1); Verbal Response: oriented(1); Motor Response: obeys tk1 commands(2); Systolic BP: > 89 mm Hg(4); Respiratory Rate: 10 to 29 per min(4); Mary Esther Score: 15; Trauma Score: 12 04:15 Eye Response: spontaneous(1); Verbal Response: oriented(1); Motor Response: obeys tk1 commands(2); Systolic BP: > 89 mm Hg(4); Respiratory Rate: 10 to 29 per min(4); Giovana Score: 15; Trauma Score: 12 06:25 Eye Response: spontaneous(1); Verbal Response: oriented(1); Motor Response: obeys tk1 commands(2); Systolic BP: > 89 mm Hg(4); Respiratory Rate: 10 to 29 per min(4); Mary Esther Score: 15; Trauma Score: 12 MDM: 01:58 Patient medically screened. sp3 02:39 Data reviewed: vital signs, nurses notes. ED course: 26-year-old female with fall off a sp3 horse with right flank pain. Trauma alert was called. Will obtain routine laboratory values including type and screen and a CT chest abdomen and pelvis trauma protocol with IV contrast. If work-up is negative will discharge patient home on NSAIDs and PCP follow-up. At this time I am not highly suspicious for intrathoracic or intra-abdominal trauma including retroperitoneal hemorrhage, spinal trauma, shock, hypovolemia, massive hemorrhage. Clinically patient does not have a head or neck injury and mental status and neurological exams are normal. Secondary survey yielded no other abnormalities as well. If work-up is negative will reassess vital signs and discharge accordingly. Toradol and normal saline were given. Patient is okay with the plan and has no questions at this time.. 04:57 ED course: CT and labs demonstrate no acute abnormality. Will discharge patient home [facility] with NSAID at this time.. 05/24 02:06 Order name: Basic Metabolic Panel; Complete Time: 04:30 sp3 05/24 02:06 Order name: CBC with Diff; Complete Time: 04:30 3 05/24 02:06 Order name: Type And Screen 3 05/24 02:06 Order name: CT Chest, Abdomen, Pelvis - W/Contrast 3 05/24 03:14 Order name: Urine Dipstick-Ancillary; Complete Time: 04:30 EDMS 05/24 03:39 Order name: Urine --Ancillary (enter results) 2 05/24 02:06 Order name: Labs collected and sent; Complete Time: 03:17 3 05/24 02:06 Order name: Urine Dipstick-Ancillary (obtain specimen); Complete Time: 03:16 sp3 05/24 02:35 Order name: Labs - recollect needed: type and screen; Complete Time: 03:06 mw2 05/24 03:39 Order name: Urine Test (obtain specimen); Complete Time: 03:39 mw2 Administered Medications: 03:06 Drug: NS 0.9% 1000 ml Route: IV; Rate: 1 bolus; Site: right antecubital; kd3 03:06 Drug: Ketorolac 30 mg Route: IVP; Site: right antecubital; kd3 03:06 Drug: Zofran (Ondansetron) 4 mg Route: IVP; Site: right antecubital; kd3 04:27 Drug: Dilaudid (HYDROmorphone) 1 mg Route: IVP; Site: right antecubital; tk1 Disposition Summary: 05/24/21 04:58 Discharge Ordered Location: Home sp3 Condition: Stable sp3 Diagnosis - Contusion of back wall of thorax sp3 - Contusion of lower back and pelvis sp3 Followup: sp3 - With: Private Physician - When: Upon discharge from the Emergency Department - Reason: Continuance of care Discharge Instructions: - Discharge Summary Sheet sp3 - Contusion sp3 Forms: - Medication Reconciliation Form sp3 - Thank You Letter sp3 - Antibiotic Education sp3 - Prescription Opioid Use sp3 Prescriptions: - Diclofenac Sodium 75 mg Oral Tablet Sustained Release - take 1 tablet by ORAL route 2 times per day; 30 tablet; Refills: 0, Product sp3 Selection Permitted Signatures: Dispatcher [employer] [facility] Gianluca Min mw2 Paula Mark MD MD sp3 Juany Santiago RN RN kd3 Paloma Ortiz tk1
[2021-05-24 05:50] LABS: Urine Specific Gravity/Preg 1.025 (1.005-1.030)
[2021-05-24 06:43] VITALS: O2SAT 100
[2021-05-24 06:55] VITALS: BP 123/85; TEMP 98.4
--- NOTE | 2021-05-24 12:02 | RAD REPORT ---
EXAM DESCRIPTION: CT - Chest Abdomen Pelvis W Cont - 05/24/2021 6:04 am CLINICAL HISTORY: TRAUMA COMPARISON: None Available. TECHNIQUE: CT of the chest, abdomen and pelvis performed following IV administration of iodinated co ntrast. This exam was performed according to our departmental dose-optimization program, which includ es automated exposure control, adjustment of the mA and/or kV according to patient size and/or use of iterative reconstruction technique. FINDINGS: Chest: Thyroid: No abnormalities of the visualized thyroid. Great Vessels: Great vessels have normal anatomic configuration. Thoracic Aorta: No abnormalities of the thoracic aorta identified. Pulmonary arteries: No central filling defects. Heart: No cardiomegaly, significant pericardial effusion, or coronary artery atherosclerosis Lymph Nodes: No enlarged mediastinal lymph nodes identified. Esophagus: No abnormalities of the esophagus identified Other: No additional findings. Lungs: No airspace opacities identified. Pleura: No pleural effusion or pneumothorax. Trachea/Airways: No abnormalities of the visualized trachea or airways. Abdomen: Liver: The liver has normal size and decreased density. No intrahepatic mass or biliary dilatation. Gallbladder: No calcified gallstones. Spleen, Pancreas, and Adrenal Glands: The spleen, pancreas, and adrenal glands are unremarkable. Kidneys: The kidneys have normal size and contour without evidence of solid mass or hydronephrosis. Punctate bilateral nonobstructing nephrolithiasis. Vasculature: The aorta and IVC have normal caliber and position. The portal vein is patent. The pro ximal visceral and renal arteries are patent. Stomach: The stomach and duodenum have normal course. Other: No free intraperitoneal air. No free fluid or lymphadenopathy. Tiny fat-containing umbilic al hernia. Pelvis: Bladder: Urinary bladder is unremarkable. Bowel: No dilated loops of large or small bowel. Appendix: Normal appendix. Pelvis: Uterus is not enlarged. Bones: No acute fractures identified. IMPRESSION: 1. No acute traumatic, inflammatory or obstructive process identified. 2. Punctate bilateral nonobstructing nephrolithiasis. 3. Hepatic steatosis. Electronically signed by: Landry Shah 05/24/2021 4:53 AM INDUSTRIAL MACHINE ASSEMBLER Due to temporary technical issues with the PACS/Fluency reporting system, reports are being signed by the in house radiologist without review as a courtesy to ensure prompt reporting. The interpreting r adiologist is fully responsible for the content of the report.
== END 2021-05-24 06:27 | disposition home or self-care (01) ==
LOC: ER 01:16
DX: S30.0XXA Contusion of lower back and pelvis, initial encounter (principal); S20.229A Contusion of unspecified back wall of thorax, initial encounter; I10 Essential (primary) hypertension; Z87.442 Personal history of urinary calculi; Z86.16 Personal history of COVID-19; Z88.5 Allergy status to narcotic agent; Z88.8 Allergy status to other drugs, medicaments and biological substances; Z91.040 Latex allergy status; Z91.048 Other nonmedicinal substance allergy status
CPT/HCPCS: 85025; 80048; 36415; 86900; 86850; 81025; 86901; 81003; 71260; 74177; Q9967; J7030; J2405

== ENCOUNTER 2021-07-22 10:50 | Emergency (ER) | payer OTHER ==
--- OUTSIDE RECORDS SUMMARY | 2021-07-22 10:54 | XMS REPORT | Continuity of Care Document ---
:1995 Author Organization [facility] t Address [address] [place] [address] Care Team Providers Name Role Phone Sonny FELIX, A Primary Care Physician SLAONI VARGAS Attending Clinician Unavailable SHADIA Attending Clinician Unavailable MARTELL WYATT Attending Clinician Unavailable MARTELL WYATT Attending Clinician Unavailable JUAN Attending Clinician Unavailable Juan PRESSURIZER Attending Clinician Doctor Unassigned, Name Attending Clinician Unavailable Delroy FELIX, K.H. Attending Clinician Dennis PEÑAP Attending Clinician Sharlene Soares Attending Clinician Saloni Vargas MD Attending Clinician Krystle FELIX, T Attending Clinician Coretta FELIX Attending Clinician Payers Payer Name Policy Type Policy Number Effective Date Expiration Date [facility] [id number] 2019 MEDICAID 00:00:00 Problems Condition Condition Condition Status Onset Resolution Last Treating Co mments Source Name Details Category Date Date Treatment Clinician Date Microhemat Microhemat Disease Active 2020-05 U nivers uria uria 05-18 ity of 00:00: [place] 00 Medical Branch B12 B12 Disease Active 2020-05 Univers deficiency deficiency 05-18 it y of (suboptima [place] l level 00 Medical <400) <400) Branch Absence of Absence of Disease Active 2021-0 U nivers menstruati menstruati 5-27 it y of on on 00:00: Medical Branch Pelvic Pelvic Disease Active Univers pain pain 4- ity of 00:00: Medical Branch Insomnia, Insomnia, Disease Active Uni vers unspecifie unspecifie 4- it y of d type d type 00:00: Medical Branch Abdominal Abdominal Disease Active 2019-05 Uni vers pain pain 2- ity of 00:00: [place] [facility] Tachycardi Tachycardi Disease Active 2019-05 U nivers a a 2- ity of 00:00: [place] [facility] Anxiety Anxiety Disease Active Univers disorder, disorder, 01-04 ity of unspecifie [place]specifie [place] type d type 00 Medical [place] Other Other Disease Active Univers depression depression 4- it y of 00:00: [place] [facility] Visual Visual Disease Resolve 2019-052020-09-06 2020-09-06 Univers changes changes d 2- 00:00:00 21:27:31 ity of 00:00: [place] [facility] Headache Headache Disease Resolve 2019-052020-09-06 2020-09-06 Univers d 2- 00:00:00 21:27:31 ity of 00:00: [place] [facility] Sinus Sinus Disease Resolve 2019-052020-09-06 2020-09-06 Univers tachycardi tachycardi d 2- 00:00:00 21:27:34 ity of a a 00:00: [place] [facility] Insomnia, Insomnia, Disease Resolve 2020-09-06 2020-09-06 Univers unspecifie unspecifie d 8- 00:00:00 21:27:43 ity of d type d type 00:00: [place] [facility] Cervical Cervical Disease Resolve 2020-05-24 2020-05-24 Univers Papanicola Papanicola d 2-07 00:00:00 17:31:26 ity of ou smear ou smear 00:00: [place] negative negative 00 Medica l within within Branch last 12 last 12 months months Other Other Disease Resolve 2020-01-05 2020-01-05 Univers general general d 4- 00:00:00 22:38:00 ity of counseling [place] and advice and advice 00 Me dical for for Branch contracept contracept bonifacio [...] of ligation ligation 00:00: [place] 00 Medical Branch Anxiety Anxiety Disease Resolve 2018-052020-01-05 2020-01-05 Univers during during d 2-05 00:00:00 22:37:53 [place] second 00 [facility] trimester, trimester, Br anch antepartum antepartum Asthma [...] 00 Me dical born in born in [facility] by by delivery delivery Normal Normal Disease Resolve 2019-08-13 2019-08-13 Univers labor labor d 3-10 00:00:00 16:34:03 ity of 00:00: [place] 00 Medical Branch 37 weeks 37 weeks Disease Resolve 2019-08-13 2019-08-13 Univers gestation gestation d 1-02 00:00:00 16:51:42 ity of of of 00:00: [place] 00 [facility] Branch Gastroesop Gastroesop Disease Resolve 2018-052019-08-13 2019-08-13 Univers hageal hageal d 2-27 00:00:00 16:33:48 ity of reflux in reflux in 00:[place] [facility] yessi Branch Supervisio Supervisio Disease Resolve 2019-08-13 2019-08-13 Univers n of high n of high d 02-06 00:00:00 16:32:56 ity of risk risk 00:00: [place] 00 Medi yessi in third in third Branch trimester trimester Multiparit Multiparit Disease Resolve 2019-08-13 2019-08-13 Univers y y d 02-06 00:00:00 16:33:04 ity of 00:00: [place] 00 Medical Branch History of History of Disease Resolve 2019-08-13 2019-08-13 Univers d 02-06 00:00:00 16:33:12 ity of delivery delivery 00:00: [place] 00 Medical Branch History of History of Disease Resolve 2019-08-13 2019-08-13 Univers d 02-06 00:00:00 16:33:20 it y of section section 00:00: [place] 00 Medical Branch History of History of Disease Resolve 2019-08-13 2019-08-13 Univers d 02-06 00:00:00 16:33:21 ity of 00:00: [place] 00 Medical Branch IUGR IUGR Disease Resolve 2019-07-21 2019-07-21 Univers (intrauter (intrauter d 06-23 00:00:00 12:42:45 ity of ine growth ine growth 00:00[place] restrictio restrictio 00 Me dical n) n) Branch affecting affecting care of care of mother, mother, third third trimester, trimester, fetus 1 fetus 1 Body aches Body aches Disease Resolve 2019-07-21 2019-07-21 Univers d 2- 00:00:00 12:41:46 ity of 00:00: [place] 00 Medical Branch Upper Upper Disease Resolve [...] , 00:00[place] antepartum antepartum 00 Md dical Branch 39 weeks 39 weeks Disease Resolve 2019-05-30 2019-05-30 Univers gestation gestation d 1-17 00:00:00 21:44:45 ity of of of 00:00: [place] 00 [facility] Branch Disease Resolve 2019-05-28 2019-05-29 Univers uterine [...] ents Source Name Type Date Date Clinician Bami Donelli Active Other - See Patient Univers dol ty to comments 07-15 states it ity o f Lactate adverse 00:00: makes her [place] reaction 00 anxious Medical s and mean Branch Prometha Propensi Active Hallucinatio Univers zine ty to ns 07-05 ity of adverse 00:00: [place] reaction 00 [...] Date Stop Date Quantity Comments Source History SDKS University o f Alcohol Std [place] Medical Drinks Branch History [facility] University o f Alcohol Binge [place] Medic al Branch Exposure to Not sure University of SARS-CoV-2 [place] [facility] (event) Branch History [facility] University o f Alcohol Comment [place] [facility] ical Branch Alcohol intake 2021-05-31 2021-05-31 Ex-drinker University of 00:00:00 00:00:00 (finding) [place] [facility] Tobacco use and 2019-02-06 2019-02-06 Never used Universit y of exposure 00:00:00 00:00:00 [place] [facility] History SDOH 2019-02-06 2019-02-06 1 University o f Alcohol Frequency 00:00:00 00:00:00 [facility] edical Branch Sex [birth year] Universit y of 00:00:00 00:00:00 [facility] Smoking Status Start Date Stop Date Source Never smoker [facility] Branch Medications Ordered Filled Start Stop Current Ordering Indication Dosage Frequency Signature Comments Components Source Medication Medication Date Date Medication? Clinician (SIG) Name Name Magen 2021- Yes [id number] 2g Take 2 Univers r 1 gram 2-07 02-09 tablets by ity of tablet 00:00: 05:59 mouth 2 [place] 00 :00 (two) Medical times Branch daily for 1 day. fluticasone Yes [id number] 2{puff} Inhale 2 Univers propionate 1-19 Puffs ity of 110 00:00: every 12 [place] mcg/actuati 00 (twelve) Medi yessi on inhaler hours. Branch benzonatate Yes [id number] 100mg Take 1 Univers (TESSALON 1-13 capsule by ity of REUBEN) 100 00:00: mouth [place] mg capsule 00 every 8 Medica l (eight) Branch hours as needed for Cough. carvediloL 2020-05 Yes 25mg Take 1 Unive rs 25 mg 2-30 tablet by ity of tablet 00:00: mouth 2 [place] 00 (two) Medical times Branch daily with meals. losartan 50 2020-05 Yes 50mg Take 1 Univ ers mg tablet 2-30 tablet by ity o f 00:00: mouth 2 [place] (two) Medical times Branch daily. carvediloL 2020-05 Yes 25mg Take 1 Unive rs 25 mg 2-30 tablet by ity of tablet 00:00: mouth 2 [place] (two) Medical times Branch daily with meals. losartan 50 2020-05 Yes 50mg Take 1 Univ ers mg tablet 2-30 tablet by ity o f 00:00: mouth 2 [place] 00 (two) Medical times Branch daily. vitamin 2020-05 Yes [id number] 500ug Take 1 Un sushant B-12 1-06 tablet by ity of (VITAMIN 00:00: mouth [place] B-12) 500 00 daily. Medical mcg tablet Branch vitamin 2020-05 Yes [id number] 500ug Take 1 Un sushant B-12 1-06 tablet by ity of (VITAMIN 00:00: mouth [place] B-12) 500 00 daily. Medical mcg tablet Branch carvediloL 2020- No [id number] 12.5mg Take 1 Univers 12.5 mg 12-26 tablet by ity of tablet 00:00: 04:59 mouth 2 [place] 00 :00 (two) Medical times Branch daily with meals for 30 days. losartan 50 2020- No 50mg Take 1 Uni vers mg tablet 12-23 tablet by ity of 00:00: 00:00 mouth 2 [place] 00 :00 (two) Medical times Branch daily. nadoloL 40 2020- No [id number] 60mg Take 1.5 Univers mg tablet 12-23 tablets by ity of 00:00: 00:00 mouth [place] 00 :00 daily. Medical Please Branch take Nadalol 40 mg QAM ibuprofen 2020- No [id number] 600mg Take 1 Univers 600 mg 12-13 tablet by ity of tablet 00:00: 00:00 mouth [place] 00 :00 every 6 Medical (six) Branch hours as needed for Pain (scale 4-6). dicyclomine 2020- No [id number] 20mg Take 1 Univers 20 mg 12-13 tablet by ity of tablet 00:00: 00:00 mouth 4 [place] 00 :00 (four) Medical times Branch daily. ondansetron 2020- No [id number] 4mg Take 1 Univers (ZOFRAN 12-13 tablet by ity of ODT) 4 mg 00:00: 00:00 mouth [place] disintegrat 00 :00 every 8 Medic al ing tablet (eight) Branch hours as needed for Nausea and Vomiting (N/V). topiramate 2020- No 25mg Take 1 Univ ers 25 mg 11-22 tablet by ity of tablet 00:00: 00:00 mouth 2 [place] 00 :00 (two) Medical times Branch daily. OXcarbazepi 2020- No Unive rs ne 150 mg 11-21 ity of tablet 00:00: 00:00 [place] 00 :00 Medical Branch FLUoxetine 2020- No Univer s 40 mg 11-21 ity of capsule 00:00: 00:00 [place] 00 :00 Medical Branch traZODone 2020- No Univers 100 mg 7-12 -16 ity of tablet 00:00: 00:00 [place] 00 :00 Medical Branch dicyclomine 2020- No [id number] 20mg Take 1 Univers 20 mg 6-10 -16 tablet by ity of tablet 00:00: 00:00 mouth 4 [place] 00 :00 (four) Medical times Branch daily. proMETHazin 2020- No [id number] 25mg Take 1 Univers e 25 mg 6-02 17-16 tablet by ity of tablet 00:00: 00:00 mouth [place] 00 :00 every 6 Medical (six) Branch hours as needed for Nausea and Vomiting (N/V). acetaminoph 2020- No TAKE 2 Uni vers en-codeine 6-16 TABLETS BY it y of 300-30 mg 00:00: 00:00 MOUTH [place] tablet 00 :00 EVERY 6 Medical HOURS Branch NEEDED FOR PAIN oxybutynin 2020- No [id number] 10mg Take 1 Univers (DITROPAN 5-30 -16 tablet by ity of XL) 10 mg 00:00: 00:00 mouth [place] 24 hr 00 :00 daily. Medical tablet Branch ondansetron 2020- No [id number] 4mg Take 1 Univers (ZOFRAN 5-30 -16 tablet by ity of ODT) 4 mg 00:00: 00:00 mouth [place] disintegrat 00 :00 every 8 Medic al ing tablet (eight) Branch hours as needed for Nausea and Vomiting (N/V). mupirocin 2 2020- No [id number] Apply to Univers % ointment 09-29- both ity of 00:00: 00:00 nostrils [place] 00 :00 at bedtime Medical Branch naproxen 2020- No [id number] 550mg Take 1 U nivers sodium 09-28-16 tablet by ity of (ANAPROX 00:00: 00:00 mouth 2 [place] DS) 550 mg 00 :00 (two) Medical [...] (21)/75 mg Branch (7) tablet LOESTRIN FE 2020- No [id number] 1{tbl} Take 1 Univers (LOESTRIN 4-27 09-30 tablet by ity of FE 06/01) 1 00:00: 00:00 mouth [place] mg-20 mcg 00 :00 daily. Medical (21)/75 mg Branch (7) tablet [...] Medical 20 mg QPM Branch methocarbam Yes [employer] of 500mg Take 1 Univers oL 4-08 [...] Immunizations Ordered Filled Immunization Date Status Comments [facility] e Immunization Name Name Influenza Virus [...] Universit y of Vaccine Recomb [place] 00:00:00 [facility], Preserv and ABX Branc h Free 18-64 YRS Influenza Virus 2020-05-16 Completed Universit y of Vaccine Recomb Quad 00:00:00 [place] [facility] IM, Preserv and ABX Branc h Free 18-64 YRS Influenza Virus 2020-05-16 Completed Universit y of Vaccine Recomb Quad 00:00:00 [place] [facility] IM, Preserv and ABX Branc h Free 18-64 YRS Influenza Virus 2020-05-16 Completed Universit y of Vaccine Recomb Quad 00:00:00 [facility] IM, Preserv and ABX Branc h Free [...] y of Vaccine Quad .5 mL 00:00:00 [place] Medical IM 6+ MO Branch Influenza Virus 2019-02-06 Completed Universit y of Vaccine Quad .5 mL 00:00:00 [place] [facility] IM 6+ MO Branch Influenza Virus 2019-02-06 Completed Universit y of Vaccine Quad .5 mL 00:00:00 [place] Medical IM 6+ MO Branch Influenza Virus 2019-02-06 Completed Universit y of Vaccine Quad .5 mL 00:00:00 [place] Medical IM 6+ MO Branch Vital Signs Vital Name Observation Time Observation Value Comments Source Systolic blood 2020-12-26 20:19:00 129 mm[Hg[facility] Diastolic blood 2020-12-26 20:19:00 75 mm[facility]Hg[facility] pressure [facility] Branch Heart rate 2020-12-26 20:19:00 86 /min [facility] Body height 2020-12-26 20:19:00 154.9 cm [facility] Body weight 2020-12-26 20:19:00 63.504 kg [facility] BMI 2020-12-26 20:19:00 26.45 kg/m2 [facility] Oxygen saturation 2020-12-26 20:19:00 96 /min [facility] in Arterial blood Medical Br anch by Pulse oximetry Procedures Procedure Date / Time Performed Performing Clinician [facility] e CARDIOLOGY EVENT 2021-05-12 06:01:00 Doctor Unassigned, No Unive [facility] MONITOR Name Medical Branch NH ELECTROCARDIOGRAM, 2020-12-26 20:23:35 [facility] Planned Activity Planned Date Details Comments Source Future Scheduled 2029-05-21 DTaP,Tdap,and Td [facility]00 Vaccines (2 - Td) Medical Br anch [code = DTaP,Tdap,and Td Vaccines (2 - Td)] Future Scheduled 2021-09-06 [facility] (procedure) [code = Medical Branch [id number]] Future Scheduled 2016-02-19 Screening for [facility] Test 00:00:00 malignant neoplasm Medical B ranch of cervix (procedure) [code = 021581336] Future Scheduled 2013 Hepatitis C [facility] Test 00:00:00 screening Medical Branch (procedure) [code = 468276873] Future Scheduled 2011 SARS-CoV-2 [facility] Test 00:00:00 (COVID-19) Vaccine Medical B ranch (1) [code = SARS-CoV-2 (COVID-19) Vaccine (1)] Future Scheduled 2006 HPV VACCINES (1 - Univer [facility] Test 00:00:00 2-dose series) [code Medical Branch = HPV VACCINES (1 - 2-dose series)] Encounters Start End Encounter Admission Attending Care Care Encounter Source Date/Time Date/Time Type Type Clinicians Facility Department ID 2021-10-10 2021-10-10 Outpatient PRASANNA LOOMIS [facility] [id number] Univers 13:30:00 13:30:00 [facility] 2021-08-04 2021-08-04 Outpatient Farzana RENO [facility] [id number] Univers 10:00:00 10:00:00 PETRA [id number] [facility] 2021-08-04 2021-08-04 Outpatient Farzana RENO [facility] [id number] Univers 10:00:00 10:00:00 PETRA [facility] 2021-07-21 2021-07-21 Outpatient MARY QUIROZ [facility] [id number] Univers 08:00:00 08:00:00 MARY WYATT [id number] [facility] 2021-07-21 2021-07-21 Outpatient MARY QUIROZ [facility] [id number] Univers 08:00:00 08:00:00 MARY WYATT [facility] 2021-07-17 2021-07-17 Outpatient Farzana BARILLAS [facility] [id number] Univers 11:30:00 11:30:00 VIJAY [id number] [facility] 2021-07-17 2021-07-17 Outpatient R JUAN [facility] [id number] Univers 11:30:00 11:30:00 VIJAY ity of [facility] 2021-06-19 2021-06-19 Telephone Víctorkathy [facility] [id number] Univers 00:00:00 00:00:00 Vijay HEALTH [id number] it y of [place] [id number] [place] as TALYA?BLEA [phone] Md dical [facility] 0[address] [facility] OFFICE BUILDING 2021-05-12 2021-05-12 Orders Doctor JORDAN [id number] Univers 00:00:00 00:00:00 Only Unassigned, YAZMIN [id number] ity of [place] [facility] [id number] [place] as [phone] [address] 2020-12-26 2020-12-26 [facility] [id number] Univers 15:30:00 16:13:32 Visit Rad LAWSON [id number] ity of [place] [id number] [place] PROFESS[place] [phone] Md alessandraak MELISSA 059 [facility] 2020-11-10 2020-11-10 Urgent Alissa Collins [facility] [id number] 18:42:46 19:53:43 Care Health [id number] [place] [id number] Professio [phone] nal [address] 2020-10-31 2020-10-31 Emergency Kaycee Méndez [facility] [id number] 18:52:00 22:15:00 Sharlene Lawson [id number] [place] [id number] [place] [phone] [id number] 2020-10-31 2020-10-31 Orders Doctor ORTEGA [id number] 00:00:00 00:00:00 Only Unassigned, YAZMIN [id number] [place] [facility] [phone] [id number] 2020-10-20 2020-10-20 Emergency Kaycee Méndez [facility] [id number] 14:02:00 17:13:00 Sharlene Lauraton [id number] [place] [id number] [place] [id number] 2020-10-14 2020-10-14 Hospital Prasanna Vargas [facility] [id number] 10:00:00 23:59:00 Encounter Saloni Lawson [id number] [place] [id number] [place] [id number] [id number] 2020-10-09 2020-10-09 Emergency Krystle [facility] [id number] 12:00:00 15:57:00 Anna Ricketts [place] [id number] [place] [id number] [place] [id number] 2020-10-06 2020-10-06 Office Prasanna Varags [facility] [id number] 08:53:00 09:46:44 Visit Saloni Lauraton [id number] [place] [id number] Professio [phone] [address] 2020-03-04 2020-03-04 RefLopez Centeno [facility] [id number] 00:00:00 00:00:00 MULTISPEC [id number] [place] [id number] [place] [id number] AND ERIBERTO [facility] Results This patient has no known results.
[2021-07-22] MEDS ORDERED: DIPHENHYDRAMINE 50 MG/ML VIAL ONE (12:39)
[2021-07-22] MEDS ORDERED: KETOROLAC 30 MG/ML INJ ONE (12:40)
[2021-07-22] MEDS ORDERED: NA CHLORIDE 0.9% 1,000 ML ONE (12:40)
[2021-07-22] MEDS ORDERED: ONDANSETRON 4 MG/2 ML VIAL ONE (12:40)
[2021-07-22 12:44] LABS: Hematocrit 39.2 % (36.0-45.0); Lymphocytes % 33.8 % (15.3-44.8); MPV 7.8 fL (7.6-11.3); RBC Red Blood Cell Count 4.53 M/uL (3.86-4.86)
[2021-07-22 12:58] LABS: Albumin 3.9 g/dL (3.4-5.0); Bilirubin Total 0.5 mg/dL (0.2-1.0); Potassium 3.5 mmol/L (3.5-5.1); Protein, Total 7.7 g/dL (6.4-8.2)
[2021-07-22 13:13] LABS: Urine Blood 1+ (Negative); Urine Glucose Negative (Negative); Urine Protein Negative (Negative); Urine Specific Gravity >=1.030 (1.005-1.030); Urine pH 6.5 (5.0-7.0)
--- NOTE | 2021-07-22 13:34 | RAD REPORT ---
EXAM DESCRIPTION: CT - Head Brain Wo Cont - 07/22/2021 1:24 pm CLINICAL HISTORY: HEADACHE Headache, drowsiness COMPARISON: Head angio dated 07/22/2021; Head Brain Wo Cont dated 02/23/2021 TECHNIQUE: All CT scans are performed using dose optimization technique as appropriate and may inclu de automated exposure control or mA/KV adjustment according to patient size. FINDINGS: No intracranial hemorrhage, hydrocephalus or extra-axial fluid collection.No areas of brai n edema or evidence of midline shift. The paranasal sinuses and mastoids are clear. The calvarium is intact. IMPRESSION: No acute intracranial abnormality.
--- NOTE | 2021-07-22 13:35 | RAD REPORT ---
EXAM DESCRIPTION: CT - Head angio - 07/22/2021 1:24 pm CLINICAL HISTORY: HEADACHE Headache, drowsiness, CVA symptomology COMPARISON: Head Brain Wo Cont dated 02/23/2021; Head Brain Wo Cont dated 05/10/2020 TECHNIQUE: CT angiography of the head was performed with MIPs. All CT scans are performed using dose optimization technique as appropriate and may include automated exposure control or mA/KV adjustment according to patient size. FINDINGS: No evidence of aneurysm is detected. No flow-limiting stenosis or vascular malformation id entified. Antegrade flow is seen in the vertebral arteries. The vertebral arteries are codominant. The visualized dural venous sinuses are patent. IMPRESSION: No significant flow abnormality is detected.
[2021-07-22 13:37] LABS: Barbiturates NEGATIVE (NEGATIVE); Benzodiazepines NEGATIVE (NEGATIVE); Cocaine NEGATIVE (NEGATIVE); METHAMPHETAM NEGATIVE (NEGATIVE); Methadone NEGATIVE (NEGATIVE); Opiates NEGATIVE (NEGATIVE); Phencyclidine NEGATIVE (NEGATIVE); THC Cannibis NEGATIVE (NEGATIVE)
[2021-07-22 13:47] LABS: Urine Specific Gravity/Preg >1.030 (1.005-1.030)
[2021-07-22] MEDS ORDERED: PROMETHAZINE INJ 25 MG/ML AMP ONE ×2 (13:49→15:48)
--- NOTE | 2021-07-22 15:27 | ER ---
Nurse's Notes [facility] Name: Natanael Dyson Age: 26 yrs Sex: Female : 1995 Arrival Date: 07/22/2021 Time: 10:52 Bed 9 Private MD: Diagnosis: Migraine with aura, intractable, without status migrainosus;Headache Presentation: 07/22 10:58 Chief complaint: Patient states: Migraine started 3-4 days ago and progressively ww getting worse. Blurry vision, nausea and vomiting. Coronavirus screen: Vaccine status: Patient reports being unvaccinated. Client denies travel out of the [place] in the last 14 days. Ebola Screen: Patient denies travel to an Ebola-affected area in the 21 days before illness onset. Initial Sepsis Screen: Does the patient meet any 2 criteria? No. Patient's initial sepsis screen is negative. Does the patient have a suspected source of infection? No. Patient's initial sepsis screen is negative. Risk Assessment: Do you want to hurt yourself or someone else? Patient reports no desire to harm self or others. Onset of symptoms is unknown. 10:58 Method Of Arrival: Ambulatory ww 10:58 Acuity: THIERNO 4 ww 10:58 Acuity: THIERNO 3 ww Triage Assessment: 11:00 Headache History: The patient has had previous headaches and this one is more severe ww than previous episodes. General: Appears uncomfortable, Behavior is cooperative. Pain: Complains of pain in top of head Pain currently is 8 out of 10 on a pain scale. Pain began 2-3 days ago. Also complains of nausea. Neuro: Level of Consciousness is awake, alert, obeys commands, Oriented to person, place, time, situation, Moves all extremities. Gait is steady, Speech is normal. Cardiovascular: Capillary refill < 3 seconds Patient's skin is warm and dry. Respiratory: Airway is patent Respiratory effort is even, unlabored, Respiratory pattern is regular, symmetrical. GI: Reports nausea, vomiting. Derm: Skin is healthy with good turgor. 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 - Social history:: Smoking status: Patient denies any tobacco usage or history of. - Family history:: not pertinent. Screenin:02 Abuse screen: Denies threats or abuse. Denies injuries from another. Nutritional ww screening: No deficits noted. Tuberculosis screening: No symptoms or risk factors identified. Fall Risk None identified. Assessment: 11:40 General: Appears uncomfortable, Behavior is calm, cooperative. Pain: Complains of pain aa5 in right frontal area Pain currently is 8 out of 10 on a pain scale. Quality of pain is described as pressure, Pain began 2-3 days ago. Is continuous. 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 Gait is steady, Speech is normal, Facial symmetry appears normal, Pupils are PERRLA, Reports blurred vision and difficulty "focusing". Cardiovascular: Patient's skin is warm and dry. Respiratory: Airway is patent Respiratory effort is even, unlabored, Respiratory pattern is regular, symmetrical. GI: Abdomen is round non-distended, Reports nausea, vomiting. : No signs and/or symptoms were reported regarding the genitourinary system. EENT: No signs and/or symptoms were reported regarding the EENT system. Derm: Skin is pink, warm \\T\\ dry. Musculoskeletal: Range of motion: intact in all extremities. 13:00 Reassessment: Patient is alert, oriented x 3, equal unlabored respirations, skin aa5 warm/dry/pink. pt still c/o nausea, MD was notified. . 14:30 Reassessment: Patient is alert, oriented x 3, equal unlabored respirations, skin aa5 warm/dry/pink. Patient states feeling better. 15:00 Reassessment: Patient is alert, oriented x 3, equal unlabored respirations, skin aa5 warm/dry/pink. Denies nausea, reports headache has increased again to 7/10 pain scale. . 16:08 Reassessment: Patient is alert, oriented x 3, equal unlabored respirations, skin aa5 warm/dry/pink. Vital Signs: 10:58 BP 130 / 90; Pulse 85; Resp 18; Temp 98.4; Pulse Ox 100% ; Weight 63.96 kg; Height 5 ww ft. 1 in. (154.94 cm); Pain 8/10; 13:00 Pulse 88; Resp 14 S; Pulse Ox 100% on R/A; aa5 15:00 Pulse 84; Resp 16 S; Pulse Ox 100% on R/A; aa5 10:58 Body Mass Index 26.64 (63.96 kg, 154.94 cm) Giovana Coma Score: 12:30 Eye Response: spontaneous(4). Verbal Response: oriented(5). Motor Response: obeys rudolph commands(6). Total: 15. ED Course: 10:52 Patient arrived in ED. as 10:53 Justin Estrella MD is Attending Physician. [facility] 11:00 Triage completed. ww 11:00 Arm band placed on right wrist. ww 11:22 Gisela Álvarez, ROSEY is Primary Nurse. jg9 11:40 Patient has correct armband on for positive identification. Call light in reach. aa5 12:38 Initial lab(s) drawn, by me, sent to lab. Inserted saline lock: 20 gauge in right em1 forearm, using aseptic technique. Blood collected. 13:23 CT Head Brain wo Cont In Process Unspecified. EDMS 13:24 CT Head Angio In Process Unspecified. EDMS 15:22 UDS Sent. ww 15:26 Darrion Allen MD is Referral Physician. [facility] 16:08 No provider procedures requiring assistance completed. IV discontinued, intact, aa5 bleeding controlled, No redness/swelling at site. Pressure dressing applied. Administered Medications: 12:45 Drug: NS 0.9% 1000 ml Route: IV; Rate: 1 bolus; Site: right forearm; aa5 12:45 Drug: TORadol (ketorolac) 30 mg Route: IVP; Site: right forearm; aa5 13:00 Follow up: Response: No adverse reaction aa5 12:45 Drug: Benadryl (diphenhydrAMINE) 50 mg Route: IVP; Site: right forearm; aa5 13:00 Follow up: Response: No adverse reaction aa5 12:45 Drug: Zofran (Ondansetron) 8 mg Route: IVP; Site: right forearm; aa5 13:00 Follow up: Response: No adverse reaction aa5 13:55 Drug: Phenergan (promethazine) 12.5 mg Route: IVP; Site: right forearm; aa5 14:30 Follow up: Response: No adverse reaction aa5 15:48 Drug: morphine 4 mg Route: IVP; Site: right forearm; aa5 16:05 Follow up: Response: No adverse reaction aa5 15:48 Drug: Phenergan (promethazine) 12.5 mg Route: IVP; Site: right forearm; aa5 16:05 Follow up: Response: No adverse reaction aa5 15:53 CANCELLED (Duplicate Order): Zithromax (azithromycin) 500 mg IVPB once over 1 hrs; mix rudolph in 250 mL NS Outcome: 15:27 Discharge ordered by . rudolph 16:08 Patient left the ED. aa5 16:08 Discharged to home ambulatory. aa5 16:08 Condition: stable 16:08 Discharge instructions given to patient, Instructed on discharge instructions, follow up and referral plans. medication usage, Demonstrated understanding of instructions, follow-up care, medications, Prescriptions given X 2. Signatures: Dispatcher [employer] EDNY Justin Estrella MD MD cha Martinez, Amelia as Martinez, Eric em1 Jaycee Brewer, RN RN aa5 Gisela Álvarez RN RN jg9 Anna Canales RN RN ww Corrections: (The following items were deleted from the chart) 11: 11:00 PMHx: Tachycardia; ww ww 11: 11:00 PMHx: COVID; yamilet woodard
--- NOTE | 2021-07-22 15:27 | EDPHYS ---
Physician Documentation [facility] Name: Natanael Dyson Age: 26 yrs Sex: Female : 1995 Arrival Date: 07/22/2021 Time: 10:52 Bed 9 Private MD: ED Physician Justin Estrella HPI: 07/22 12:27 This 26 yrs old Female presents to ER via Ambulatory with complaints of rudolph Headache, Vomiting. 12:27 The patient complains of pain to the top of head. The patient describes the headache as rudolph constant, a pressure, throbbing. Onset: The symptoms/episode began/occurred 3 day(s) ago. Associated signs and symptoms: Pertinent positives: nausea, vomiting. Severity of symptoms: At its worst the pain was moderate, severe, in the emergency department the pain is unchanged. Headache History: The patient has had previous headaches and this one is similar to previous episodes. The symptoms are alleviated by nothing. the symptoms are aggravated by movement, noise. The patient has experienced similar episodes in the past, multiple times. 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 - Social history:: Smoking status: Patient denies any tobacco usage or history of. - Family history:: not pertinent. ROS: 12:27 Eyes: Negative for injury, pain, redness, and discharge, ENT: Negative for injury, rudolph pain, and discharge, Neck: Negative for injury, pain, and swelling, Cardiovascular: Negative for chest pain, palpitations, and edema, Respiratory: Negative for shortness of breath, cough, wheezing, and pleuritic chest pain, Abdomen/GI: Negative for abdominal pain, nausea, vomiting, diarrhea, and constipation, Back: Negative for injury and pain, : Negative for injury, bleeding, discharge, and swelling, MS/Extremity: Negative for injury and deformity, Skin: Negative for injury, rash, and discoloration, Neuro: Negative for headache, weakness, numbness, tingling, and seizure, Psych: Negative for depression, anxiety, suicide ideation, homicidal ideation, and hallucinations, Allergy/Immunology: Negative for hives, rash, and allergies, Endocrine: Negative for neck swelling, polydipsia, polyuria, polyphagia, and marked weight changes, Hematologic/Lymphatic: Negative for swollen nodes, abnormal bleeding, and unusual bruising. 12:27 Constitutional: Positive for poor PO intake. Exam: 12:27 Constitutional: This is a well developed, well nourished patient who is awake, alert, rudolph and in no acute distress. Head/Face: Normocephalic, atraumatic. Eyes: Pupils equal round and reactive to light, extra-ocular motions intact. Lids and lashes normal. Conjunctiva and sclera are non-icteric and not injected. Cornea within normal limits. Periorbital areas with no swelling, redness, or edema. ENT: Nares patent. No nasal discharge, no septal abnormalities noted. Tympanic membranes are normal and external auditory canals are clear. Oropharynx with no redness, swelling, or masses, exudates, or evidence of obstruction, uvula midline. Mucous membranes moist. Neck: Trachea midline, no thyromegaly or masses palpated, and no cervical lymphadenopathy. Supple, full range of motion without nuchal rigidity, or vertebral point tenderness. No Meningismus. Chest/axilla: Normal chest wall appearance and motion. Nontender with no deformity. No lesions are appreciated. Cardiovascular: Regular rate and rhythm with a normal S1 and S2. No gallops, murmurs, or rubs. Normal PMI, no JVD. No pulse deficits. Respiratory: Lungs have equal breath sounds bilaterally, clear to auscultation and percussion. No rales, rhonchi or wheezes noted. No increased work of breathing, no retractions or nasal flaring. Abdomen/GI: Soft, non-tender, with normal bowel sounds. No distension or tympany. No guarding or rebound. No evidence of tenderness throughout. Back: No spinal tenderness. No costovertebral tenderness. Full range of motion. Skin: Warm, dry with normal turgor. Normal color with no rashes, no lesions, and no evidence of cellulitis. MS/ Extremity: Pulses equal, no cyanosis. Neurovascular intact. Full, normal range of motion. Neuro: Awake and alert, GCS 15, oriented to person, place, time, and situation. Cranial nerves II-XII grossly intact. Motor strength 5/5 in all extremities. Sensory grossly intact. Cerebellar exam normal. Normal gait. Psych: Awake, alert, with orientation to person, place and time. Behavior, mood, and affect are within normal limits. 12:27 Neck: External neck: is normal, no acute changes, C-spine: appears grossly normal, no acute changes, Thyroid: appears normal, no acute changes, Trachea: is midline with no obvious abnormalities, no acute changes, ROM/movement: is normal, no acute changes, Lymph nodes: no appreciated lymphadenopathy. Vital Signs: 10:58 BP 130 / 90; Pulse 85; Resp 18; Temp 98.4; Pulse Ox 100% ; Weight 63.96 kg; Height 5 ww ft. 1 in. (154.94 cm); Pain 8/10; 13:00 Pulse 88; Resp 14 S; Pulse Ox 100% on R/A; aa5 15:00 Pulse 84; Resp 16 S; Pulse Ox 100% on R/A; aa5 10:58 Body Mass Index 26.64 (63.96 kg, 154.94 cm) ww Giovana Coma Score: 12:30 Eye Response: spontaneous(4). Verbal Response: oriented(5). Motor Response: obeys rudolph commands(6). Total: 15. Procedures: 15:37 Peripheral line: by aseptic technique a peripheral line was placed in the left external rudolph jugular vein. MDM: 11:27 Patient medically screened. [facility] 12:30 Differential diagnosis: cluster headache, intracerebral hemorrhage, meningitis, rudolph migraine, neoplasm, sinusitis, subarachnoid bleed, temporal arteritis, tension headache, trigeminal neuralgia. Data reviewed: vital signs, nurses notes, lab test result(s), radiologic studies, CT scan, plain films. 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 Counseling: I had a detailed discussion with the patient and/or guardian regarding: the historical points, exam findings, and any diagnostic results supporting the discharge/admit diagnosis, lab results, radiology results, the need for outpatient follow up, for definitive care, a family practitioner, a neurologist. 15:30 ED course: pt had a negative mri mra 1 year ago at [facility] , ordered by dr bunch. [facility] 07/22 12:22 Order name: CBC with Diff; Complete Time: 14:01 rudolph 07/22 12:22 Order name: Comprehensive Metabolic Panel; Complete Time: 14:01 rudolph 07/22 12:35 Order name: UDS [facility] 07/22 12:36 Order name: Urine Drug Screen; Complete Time: 14:01 EDMS 07/22 13:12 Order name: Urine Dipstick-Ancillary; Complete Time: 14:01 EDMS 07/22 13:16 Order name: Test Urine - POC; Complete Time: 14:01 sp 07/22 12:22 Order name: CT Head Brain wo Cont; Complete Time: 14:01 rudolph 07/22 12:22 Order name: CT Head Angio; Complete Time: 14:01 rudolph 07/22 12:22 Order name: Urine Dipstick-Ancillary (obtain specimen); Complete Time: 13:15 [facility] 07/22 12:22 Order name: Urine Test (obtain specimen); Complete Time: 13:15 [facility] 07/22 12:22 Order name: Oxygen Per Protocol; Complete Time: 13:07 [facility] Administered Medications: 12:45 Drug: NS 0.9% 1000 ml Route: IV; Rate: 1 bolus; Site: right forearm; aa5 12:45 Drug: TORadol (ketorolac) 30 mg Route: IVP; Site: right forearm; aa5 13:00 Follow up: Response: No adverse reaction aa5 12:45 Drug: Benadryl (diphenhydrAMINE) 50 mg Route: IVP; Site: right forearm; aa5 13:00 Follow up: Response: No adverse reaction aa5 12:45 Drug: Zofran (Ondansetron) 8 mg Route: IVP; Site: right forearm; aa5 13:00 Follow up: Response: No adverse reaction aa5 13:55 Drug: Phenergan (promethazine) 12.5 mg Route: IVP; Site: right forearm; aa5 14:30 Follow up: Response: No adverse reaction aa5 15:48 Drug: morphine 4 mg Route: IVP; Site: right forearm; aa5 16:05 Follow up: Response: No adverse reaction aa5 15:48 Drug: Phenergan (promethazine) 12.5 mg Route: IVP; Site: right forearm; aa5 16:05 Follow up: Response: No adverse reaction aa5 15:53 CANCELLED (Duplicate Order): Zithromax (azithromycin) 500 mg IVPB once over 1 hrs; mix rudolph in 250 mL NS Disposition Summary: 07/22/21 15:27 Discharge Ordered Location: Home [facility] Problem: new rudolph Symptoms: have improved rudolph Condition: Stable rudolph Diagnosis - Migraine with aura, intractable, without status migrainosus rudolph - Headache rudolph Followup: rudolph - With: Private Physician - When: 2 - 3 days - Reason: Recheck today's complaints, Continuance of care, Re-evaluation by your physician Followup: rudolph - With: Darrion Allen MD - When: 2 - 3 days - Reason: Recheck today's complaints, Continuance of care, Re-evaluation by your physician Discharge Instructions: - Discharge Summary Sheet rudolph - Migraine Headache rudolph - Migraine Headache, [id number] rudolph Forms: - Medication Reconciliation Form rudolph - Thank You Letter rudolph - Antibiotic Education rudolph - Prescription Opioid Use [facility] Prescriptions: - Zofran 4 mg Oral Tablet - take 1 tablet by ORAL route every 12 hours As needed; 20 tablet; Refills: 0, [facility] Product Selection Permitted - promethazine 25 mg Oral Tablet - take 1 tablet by ORAL route every 6 hours As needed; 20 tablet; Refills: 0, [facility] Product Selection Permitted Signatures: Dispatcher [employer] EDJustin Camacho MD MD cha Calderon, Audri, RN RN Anna Lebron RN RN yamilet Corrections: (The following items were deleted from the chart) 11:01 11:00 PMHx: Tachycardia; ww 11: 11:00 PMHx: COVID; [facility] 15:53 15:37 Zithromax (azithromycin) 500 mg IVPB once over 1 hrs; mix in 250 mL NS ordered. rudolph rudolph
[2021-07-22] MEDS ORDERED: MORPHINE 4 MG/ML SYR ONE (15:48)
[2021-07-22 16:14] VITALS: BP 130/90; TEMP 98.4; O2SAT 100
== END 2021-07-22 16:08 | disposition home or self-care (01) ==
LOC: ER 10:50
PROC: 05HQ33Z Insertion of Infusion Device into Left External Jugular Vein, Percutaneous Approach (ICD-10-PCS; principal; 2021-07-22)
DX: G43.119 Migraine with aura, intractable, without status migrainosus (principal); R11.2 Nausea with vomiting, unspecified; I10 Essential (primary) hypertension; Z88.5 Allergy status to narcotic agent; Z88.8 Allergy status to other drugs, medicaments and biological substances; Z91.040 Latex allergy status; Z91.048 Other nonmedicinal substance allergy status
CPT/HCPCS: 85025; 36415; 81025; 81003; 80053; 80307; 70450; 70496; 96375; 96374; 99284; 36569; Q9967; J2550 ×2; J1200; J7030; J2405

== ENCOUNTER 2021-08-01 08:51 | Emergency (ER) | payer OTHER ==
--- OUTSIDE RECORDS SUMMARY | 2021-08-01 08:56 | XMS REPORT | Continuity of Care Document ---
:1995 Author Organization [facility] t Address [address] [place] [address] Care Team Providers Name Role Phone Sonny FELIX, A Primary Care Physician SALONI VARGAS Attending Clinician Unavailable SHADIA Attending Clinician Unavailable EMILY Attending Clinician Unavailable MARTELL WYATT Attending Clinician Unavailable MARTELL WYATT Attending Clinician Unavailable JUAN Attending Clinician Unavailable Juan HENDRICKS Attending Clinician Doctor Unassigned, Name Attending Clinician Unavailable Delroy FELIX, K.H. Attending Clinician Dennis HENDRICKS Attending Clinician Sharlene Soares Attending Clinician Saloni Vargas MD Attending Clinician Krystle FELIX, T Attending Clinician Coretta FELIX Attending Clinician Payers Payer Name Policy Type Policy Number Effective Date Expiration Date [facility] [id number] 2019 MEDICAID 00:00:00 Problems Condition Condition Condition [...] of Disease Active U nivers menstruati menstruati 5- it y of on on 00:00: [place] [facility] Pelvic Pelvic Disease Active Univers pain pain 4- ity of 00:00: [place] [facility] Insomnia, Insomnia, Disease Active Uni vers unspecifie unspecifie - it y of d type d type 00:00: Medical Branch Abdominal Abdominal Disease Active 2019-05 Uni vers pain pain 2- ity of 00:00: [place] [facility] Tachycardi Tachycardi Disease Active 2019-05 U nivers a a 2- ity of 00:00: [place] [facility] Anxiety Anxiety Disease Active Univers disorder, disorder, 01-04 ity of [place] d type 00 [place] Other Other Disease Active Univers depression depression 4- it y of 00:00: [place] [facility] Visual Visual Disease Resolve 2019-052020-09-06 2020-09-06 Univers changes changes d 2- 00:00:00 21:27:31 ity of 00:00: [place] [facility] Headache Headache Disease Resolve 2019-052020-09-06 2020-09-06 Univers d 2- 00:00:00 21:27:31 ity of 00:00: [place] 00 Medical Branch Sinus Sinus Disease Resolve 2019-052020-09-06 2020-09-06 Univers tachycardi tachycardi d 2- 00:00:00 21:27:34 ity of a a 00:00: [place] [facility] Insomnia, Insomnia, Disease Resolve 2020-09-06 2020-09-06 Univers unspecifie unspecifie d 8- 00:00:00 21:27:43 ity of d type d type 00:00: [place] [facility] Cervical Cervical Disease Resolve 2020-05-24 [...] second 00 [facility] trimester, trimester, Br anch antepartum antepartum Asthma [...] 00 Me dical born in born in [facility] by by delivery delivery Normal Normal Disease Resolve 2019-08-13 2019-08-13 Univers labor labor d 3-10 00:00:00 16:34:03 ity of 00:00: [place] 00 Medical Branch 37 weeks 37 weeks Disease Resolve 2019-08-13 2019-08-13 Univers gestation gestation d 1-02 00:00:00 16:51:42 ity of of of 00:00: [place] 00 Medi [facility] Branch Gastroesop Gastroesop Disease Resolve 2018-052019-08-13 2019-08-13 Univers hageal hageal d 07-09 00:00:00 16:33:48 ity of reflux [place] reflux [place] [facility] Branch Supervisio Supervisio Disease Resolve 2019-08-13 2019-08-13 Univers n of high n of high d 02-06 00:00:00 16:32:56 ity of risk risk 00:00: [place] 00 Medi yessi in third in third Branch trimester trimester Multiparit Multiparit Disease Resolve 2019-08-13 2019-08-13 Univers y y d 02-06 00:00:00 16:33:04 ity of 00:00: [place] [facility] History of History of Disease Resolve 2019-08-13 2019-08-13 Univers d 02-06 00:00:00 16:33:12 ity of delivery delivery 00:00: [place] 00 Medical Branch History of History of Disease Resolve 2019-08-13 2019-08-13 Univers d 02-06 00:00:00 16:33:20 it y of section section 00:00: [place] 00 Medical Branch History of History of Disease Resolve 2019-08-13 2019-08-13 Univers d 02-06 00:00:00 16:33:21 ity of 00:00: [place] 00 Medical Branch IUGR IUGR Disease Resolve [...] d 2- 00:00:00 12:41:46 ity of 00:00: [place] 00 Medical Branch Upper Upper Disease Resolve [...] Previous Disease Resolve 2019-07-21 2019-07-21 Univers d -19 00:00:00 12:42:55 it y of delivery delivery [...] , [place] antepartum antepartum 00 Sd dical Branch 39 weeks 39 weeks Disease Resolve 2019-05-30 2019-05-30 Univers gestation gestation d 1-17 00:00:00 21:44:45 ity of of of 00:00: [place] 00 [facility] yessi Branch Disease Resolve 2019-05-28 2019-05-29 [...] Medical s Branch LATEX DRUG Active Rash 2019-1 Univers INGREDI 06-14 ity of 00:00: [place] [...] Date Stop Date Quantity Comments Source History [facility] University o f Alcohol Std [place] [facility] Drinks Branch History [facility] University o f Alcohol Binge [place] [facility] al Branch Exposure to Not sure University of SARS-CoV-2 [place] [facility] (event) Branch History [facility] University o f Alcohol Comment [place] [facility] ical [facility] Alcohol intake 2021-05-31 2021-05-31 Ex-drinker University of 00:00:00 00:00:00 (finding) [place] [facility] Tobacco use and 2019-02-06 2019-02-06 Never used Universit y of exposure 00:00:00 00:00:00 [place] [facility] History SDOH 2019-02-06 2019-02-06 1 University o f Alcohol Frequency 00:00:00 00:00:00 [facility] [place] [facility] edical Branch Sex [birth year] Universit y of 00:00:00 00:00:00 [facility] Smoking Status Start Date Stop Date Source Never smoker [facility] Branch Medications Ordered Filled Start Stop Current Ordering Indication Dosage Frequency Signature Comments Components Source Medication Medication Date Date Medication? Clinician (SIG) Name Name Magen 2021- Yes [id number] 2g Take 2 Univers r 1 gram 2-07 06-21 tablets by ity of tablet 00:00: 05:59 mouth 2 [place] 00 :00 (two) Medical times Branch daily for 1 day. fluticasone Yes [id number] 2{puff} Inhale 2 Univers propionate 1-19 Puffs ity of 110 00:00: every 12 [place] mcg/actuati 00 (twelve) Medi yessi on inhaler hours. Branch benzonatate Yes [id number] 100mg Take 1 Univers (TESSALON 1-13 capsule by ity of REUBEN) 100 00:00: mouth [place] mg capsule 00 every 8 Medica l (eight) Branch hours as needed for Cough. carvediloL 2020-05 Yes 25mg Take 1 Unive rs 25 mg 2-30 tablet by ity of tablet 00:00: mouth 2 [place] (two) Medical times Branch daily with meals. losartan 50 2020-05 Yes 50mg Take 1 Univ ers mg tablet 2-30 tablet by ity o f 00:00: mouth 2 [place] (two) Medical times Branch daily. carvediloL 2020-05 Yes 25mg Take 1 Unive rs 25 mg 2-30 tablet by ity of tablet 00:00: mouth 2 [place] (two) Medical times Branch daily with meals. losartan 50 2020-05 Yes 50mg Take 1 Univ ers mg tablet 2-30 tablet by ity o f 00:00: mouth 2 [place] (two) Medical times Branch daily. vitamin 2020-05 Yes [id number] 500ug Take 1 Un sushant B-12 1-06 tablet by ity of (VITAMIN 00:00: mouth [place] B-12) 500 00 daily. Medical mcg tablet Branch vitamin 2020-05 Yes [id number] 500ug Take 1 Un sushant B-12 1-06 tablet by ity of (VITAMIN 00:00: mouth [place] B-12) 500 00 daily. Medical mcg tablet Branch carvediloL 2020- No [id number] 12.5mg Take 1 Univers 12.5 mg 12-26 tablet by ity of tablet 00:00: 04:59 mouth 2 [place] 00 :00 (two) Medical times Branch daily with meals for 30 days. losartan 50 2020- No 50mg Take 1 Uni vers mg tablet 12-23 tablet by ity of 00:00: 00:00 mouth 2 [place] 00 :00 (two) Medical times Branch daily. nadoloL 40 2020- No [id number] 60mg Take 1.5 Univers mg tablet 12-23 tablets by ity of 00:00: 00:00 mouth [place] 00 :00 daily. Medical Please Branch take Nadalol 40 mg QAM ibuprofen 2020- No [id number] 600mg Take 1 Univers 600 mg 12-13 tablet by ity of tablet 00:00: 00:00 mouth [place] 00 :00 every 6 Medical (six) Branch hours as needed for Pain (scale 4-6). dicyclomine 2020- No [id number] 20mg Take 1 Univers 20 mg 12-13 tablet by ity of tablet 00:00: 00:00 mouth 4 [place] 00 :00 (four) Medical times Branch daily. ondansetron 2020- No [id number] 4mg Take 1 Univers (ZOFRAN 12-13 tablet by ity of ODT) 4 mg 00:00: 00:00 mouth [place] disintegrat 00 :00 every 8 Medic al ing tablet (eight) Branch hours as needed for Nausea and Vomiting (N/V). topiramate 2020- No 25mg Take 1 Univ ers 25 mg 11-22 tablet by ity of tablet 00:00: 00:00 mouth 2 [place] 00 :00 (two) Medical times Branch daily. OXcarbazepi 2020- No Unive rs ne 150 mg 11-21 ity of tablet 00:00: 00:00 [place] 00 :00 Medical Branch FLUoxetine 2020- No Univer s 40 mg 11-21 ity of capsule 00:00: 00:00 [place] 00 :00 Medical Branch traZODone 2020- No Univers 100 mg 7-04 19-16 ity of tablet 00:00: 00:00 [place] 00 :00 Medical Branch dicyclomine 2020- No [id number] 20mg Take 1 Univers 20 mg 10-20-16 tablet by ity of tablet 00:00: 00:00 mouth 4 [place] 00 :00 (four) Medical times Branch daily. proMETHazin 2020- No [id number] 25mg Take 1 Univers e 25 mg 10-20-16 tablet by ity of tablet 00:00: 00:00 mouth [place] 00 :00 every 6 Medical (six) Branch hours as needed for Nausea and Vomiting (N/V). acetaminoph 2020- No TAKE 2 Uni vers en-codeine 10-1516 TABLETS BY it y of 300-30 mg 00:00: 00:00 MOUTH [place] tablet 00 :00 EVERY 6 Medical HOURS Branch NEEDED FOR PAIN oxybutynin 2020- No [id number] 10mg Take 1 Univers (DITROPAN 10-09-16 tablet by ity of XL) 10 mg 00:00: 00:00 mouth [place] 24 hr 00 :00 daily. Medical tablet Branch ondansetron 2020- No [id number] 4mg Take 1 Univers (ZOFRAN 5-30 -16 tablet by ity of ODT) 4 mg 00:00: 00:00 mouth [place] disintegrat 00 :00 every 8 Medic al ing tablet (eight) Branch hours as needed for Nausea and Vomiting (N/V). mupirocin 2 2020- No [id number] Apply to Univers % ointment 09-29 both ity of 00:00: 00:00 nostrils [place] 00 :00 at bedtime Medical Branch naproxen 2020- No [id number] 550mg Take 1 U nivers sodium 09-28-16 [...] (21)/75 mg Branch (7) tablet LOESTRIN FE 202- No [id number] 1{tbl} Take 1 Univers (LOESTRIN 4-27 09-30 tablet by ity of FE 06/01) 1 00:00: 00:00 mouth [place] mg-20 mcg 00 :00 daily. Medical (21)/75 mg Branch (7) tablet potassium Yes 1080mg Take 1 Univ ers citrate 10 4-26 tablet by ity of mEq (08 00:00: mouth [place] mg) SR 00 daily. Medical tablet Branch nadoloL 20 Yes Anxiety Please Un sushant mg tablet 4-21 disorder, take ity o f 00:00: unspecified Nadalol 40 [place] 00 type mg QAM and Medical 20 mg QPM Branch methocarbam Yes Nurse [facility] of 500mg Take 1 Univers oL 4-08 [...] by ity of tablet 00:00: mouth 2 00 (two) Medical times Branch daily. Immunizations Ordered Filled Immunization Date Status Comments [facility] e Immunization Name Name Influenza Virus 2020-05-19 Completed Universit y of Vaccine 00:00:00 [facility] Influenza Virus 2020-05-19 Completed Universit y of Vaccine 00:00:00 [facility] Influenza Virus 2020-05-19 Completed Universit y of Vaccine 00:00:00 [facility] Influenza Virus 2020-05-19 Completed Universit y of Vaccine 00:00:00 [facility] Influenza Virus 2020-05-16 Completed Universit y of Vaccine Recomb Quad 00:00:00 [facility] IM, Preserv and ABX Branc h Free 18-64 YRS Influenza Virus 2020-05-16 Completed Universit y of Vaccine Recomb Quad 00:00:00 [place] [facility] IM, Preserv and ABX Branc h Free 18-64 YRS Influenza Virus 2020-05-16 Completed Universit y of Vaccine Recomb Quad 00:00:00 [place] [facility] IM, Preserv and ABX Branc h Free 18-64 YRS Influenza Virus 2020-05-16 Completed Universit y of Vaccine Recomb Quad 00:00:00 [place] [facility] IM, Preserv and ABX Branc h Free 18-64 YRS TDAP (ADACEL) 2019-05-21 Completed University of VACCINE 00:00:00 [facility] TDAP (ADACEL) 2019-05-21 Completed University of VACCINE 00:00:00 [place] [facility] TDAP (ADACEL) 2019-05-21 Completed University of VACCINE 00:00:00 [facility] TDAP (ADACEL) 2019-05-21 Completed University of VACCINE 00:00:00 [facility] Influenza Virus 2019-02-06 Completed Universit y of Vaccine Quad .5 mL 00:00:00 [place] [facility] IM 6+ MO Branch Influenza Virus 2019-02-06 Completed Universit y of Vaccine Quad .5 mL 00:00:00 [place] [facility] IM 6+ MO Branch Influenza Virus 2019-02-06 Completed Universit y of Vaccine Quad .5 mL 00:00:00 [place] [facility] IM 6+ MO Branch Influenza Virus 2019-02-06 Completed Universit y of Vaccine Quad .5 mL 00:00:00 [facility] 6+ MO Branch Vital Signs Vital Name Observation Time Observation Value Comments Source Systolic blood 2020-12-26 20:19:00 129 mm[Hg] [facility] Branch Diastolic blood 2020-12-26 20:19:00 75 mm[Hg] Unive [facility] pressure [facility] Branch Heart rate 2020-12-26 20:19:00 86 /min [facility] Body height 2020-12-26 20:19:[address] [facility] Body weight 2020-12-26 20:19:[address] [facility] BMI 2020-12-26 20:19:00 26.45 kg/m2 [facility] Oxygen saturation 2020-12-26 20:19:00 96 /min [facility] in Arterial blood Medical Br anch by Pulse oximetry Procedures Procedure Date / Time Performed Performing Clinician [facility] e CARDIOLOGY EVENT 2021-05-12 06:01:00 Doctor Unassigned, No Unive [facility] MONITOR Name Medical Branch GA ELECTROCARDIOGRAM, 2020-12-26 20:23:35 Rad Potts [facility] Plan of Care Planned Activity Planned Date Details Comments Source Future Scheduled 2029-05-21 DTaP,Tdap,and Td Univers [facility] Test 00:00:00 Vaccines (2 - Td) Medical Br anch [code = DTaP,Tdap,and Td Vaccines (2 - Td)] Future Scheduled 2021-09-06 Depression [facility] 00:[facility]:00 (procedure) [code = Medical Branch 719747616] Future Scheduled 2016-02-19 Screening for [facility] Test 00:00:00 malignant neoplasm Medical B ranch of cervix (procedure) [code = 294359146] Future Scheduled 2013 Hepatitis C [facility] Test 00:00:00 screening Medical Branch (procedure) [code = 747757624] Future Scheduled 2011 SARS-CoV-2 [facility] Test 00:00:00 (COVID-19) Vaccine Medical B ranch (1) [code = SARS-CoV-2 (COVID-19) Vaccine (1)] Future Scheduled 2006 HPV VACCINES (1 - Univer [facility] Test 00:00:00 2-dose series) [code Medical Branch = HPV VACCINES (1 - 2-dose series)] Encounters Start End Encounter Admission Attending Care Care Encounter Source Date/Time Date/Time Type Type Clinicians Facility Department ID 2021-10-10 2021-10-10 Outpatient PRASANNA LOOMIS [facility] [id number] Univers 13:30:00 13:30:00 [facility] [place] [facility] 2021-08-04 2021-08-04 Outpatient Farzana RENO [facility] [id number] Univers 10:00:00 10:00:00 PETRA [id number] [facility] [place] [facility] 2021-08-04 2021-08-04 Outpatient Farzana RENO [facility] [id number] Univers 10:00:00 10:00:00 PETRA [facility] [place] [facility] 2021-08-03 2021-08-03 Outpatient Farzana DIAZ [facility] [id number] Univers 11:00:00 11:00:00 JUAN [id number] [facility] [place] [facility] 2021-08-03 2021-08-03 Outpatient Farzana DIAZ [facility] [id number] Univers 11:00:00 11:00:00 JUAN chino [facility] 2021-07-21 2021-07-21 Outpatient MARY QUIROZ [facility] [id number] Univers 08:00:00 08:52:53 MARY WYATT [facility] [place] [facility] 2021-07-21 2021-07-21 Outpatient R YOSELIN, MARY [facility] [id number] Univers 08:00:00 08:00:00 MARY WYATT [id number] y [facility] 2021-07-17 2021-07-17 Outpatient R JUAN [facility] [id number] Univers 11:30:00 11:30:00 VIJAY [id number] ity [facility] 2021-07-17 2021-07-17 Outpatient R JUAN [facility] [id number] Univers 11:30:00 11:30:00 VIJAY itchino [facility] 2021-06-19 2021-06-19 [facility] [id number] Univers 00:00:00 00:00:00 [facility] [id number] it y of [place] [id number] [place] as TALYA[facility]BLE[id number] [facility] [address] [facility] 2021-05-12 2021-05-12 Orders Doctor JORDAN [id number] Univers 00:00:00 00:00:00 Only Unassigned, YAZMIN [id number] ity of [place] [facility] [id number] [place] as [id number] [address] 2020-12-26 2020-12-26 Office Delroy [facility] [id number] Univers 15:30:00 16:13:32 Visit Rad LAWSON [id number] ity of [place] [id number] [place] PROF[place] [id number] Sd dical NAL 059 [facility] 2020-11-10 2020-11-10 Urgent Alissa Collins [facility] [id number] 18:42:46 19:53:43 [facility] [id number] [place] [id number] Professio [id number] nal [address] 2020-10-31 2020-10-31 Emergency Kaycee Méndez [facility] [id number] 18:52:00 22:15:00 Sharlene [place] [id number] [place] [id number] [place] [id number] 2020-10-31 2020-10-31 Orders Doctor JORDAN [id number] 00:00:00 00:00:00 Only Unassigned, YAZMIN [id number] [place] [facility] [id number] [id number] 2020-10-20 2020-10-20 Emergency Kaycee Méndez [facility] [id number] 14:02:00 17:13:00 Sharlene Maurice [id number] [place] [id number] [place] [id number] 2020-10-14 2020-10-14 Hospital Prasanna Vargas [facility] [id number] 10:00:00 23:59:00 Encounter Saloni [place] [id number] [place] [id number] [place] [id number] 2020-10-09 2020-10-09 Emergency Krystle [facility] [id number] 12:00:00 15:57:00 Anna [place] [id number] [place] [id number] [place] [id number] 2020-10-06 2020-10-06 Office Prasanna Vargas [facility] [id number] 08:53:00 09:46:44 Visit Saloni Lawson [id number] [place] [id number] Professio [id number] [place] [address] Building 2020-03-04 2020-03-04 RefLopez Centeno [facility] [id number] 00:00:00 00:00:00 MULTISPEC [id number] [place]AL[place] 4.2.7.2.686 [place] [id number] AND [facility] Results This patient has no known results.
[2021-08-01] MEDS ORDERED: ONDANSETRON 4 MG/2 ML VIAL ONE (09:12)
[2021-08-01 09:25] LABS: Absolute Lymphocytes (CBC) 1.6 K/uL (0.7-4.9); Hematocrit 40.4 % (36.0-45.0); Lymphocytes % 24.9 % (15.3-44.8); RBC Red Blood Cell Count 4.66 M/uL (3.86-4.86)
[2021-08-01 09:47] LABS: Urine Blood Trace-intact (Negative); Urine Glucose Negative (Negative); Urine Protein Negative (Negative); Urine Specific Gravity 1.015 (1.005-1.030); Urine pH 6.5 (5.0-7.0)
[2021-08-01 09:49] LABS: Potassium 3.8 mmol/L (3.5-5.1); Troponin High Sensitivity 3.1 pg/mL (<58.9)
[2021-08-01 10:01] LABS: Barbiturates NEGATIVE (NEGATIVE); Benzodiazepines NEGATIVE (NEGATIVE); Cocaine NEGATIVE (NEGATIVE); METHAMPHETAM NEGATIVE (NEGATIVE); Methadone NEGATIVE (NEGATIVE); Opiates NEGATIVE (NEGATIVE); Phencyclidine NEGATIVE (NEGATIVE); THC Cannibis NEGATIVE (NEGATIVE)
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
[2021-08-01 10:35] LABS: Urine Specific Gravity/Preg 1.015 (1.005-1.030)
[2021-08-01] MEDS ORDERED: MORPHINE 2 MG/ML SYR ONE (10:51)
[2021-08-01] MEDS ORDERED: DIAZEPAM 10 MG/2 ML INJ SYRINGE ONE (10:52)
[2021-08-01] MEDS ORDERED: KETOROLAC 30 MG/ML INJ ONE (10:52)
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
[2021-08-01 12:55] VITALS: TEMP 98.4
[2021-08-01 12:56] VITALS: O2SAT 97
[2021-08-01 12:59] VITALS: BP 122/63
== END 2021-08-01 12:26 | disposition home or self-care (01) ==
LOC: ER 08:51
DX: S29.012A Strain of muscle and tendon of back wall of thorax, initial encounter (principal); V49.40XA Driver injured in collision with unspecified motor vehicles in traffic accident, initial encounter; I10 Essential (primary) hypertension; Z88.5 Allergy status to narcotic agent; Z88.8 Allergy status to other drugs, medicaments and biological substances; Z87.442 Personal history of urinary calculi; Z91.040 Latex allergy status; Z91.048 Other nonmedicinal substance allergy status
CPT/HCPCS: 85025; 80048; 36415; 81025; 82565; 81003; 84484; 80307; 70450; 72125; 71260; 74177; Q9967; J3360; J2270; J2405; 99284

== ENCOUNTER 2021-08-22 08:12 | Emergency (ER) | payer OTHER ==
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
[2021-08-22] MEDS ORDERED: NA CHLORIDE 0.9% 1,000 ML IV ONE (08:41)
[2021-08-22] MEDS ORDERED: DIPHENHYDRAMINE 50 MG/ML VIAL IV ONE (08:41)
--- NOTE | 2021-08-22 08:59 | RAD REPORT ---
EXAM DESCRIPTION: CT - Head Brain Wo Cont - 08/22/2021 8:51 am CLINICAL HISTORY: headache, seizure COMPARISON: Head Brain Wo Cont dated 07/22/2021; Head angio dated 07/22/2021 TECHNIQUE: All CT scans are performed using dose optimization technique as appropriate and may inclu de automated exposure control or mA/KV adjustment according to patient size. FINDINGS: No intracranial hemorrhage, hydrocephalus or extra-axial fluid collection.No areas of brai n edema or evidence of midline shift. The paranasal sinuses and mastoids are clear. The calvarium is intact. IMPRESSION: No acute intracranial abnormality.
[2021-08-22] MEDS ORDERED: METOCLOPRAMIDE 10 MG/2mL INJ IV SCH (09:00)
[2021-08-22] MEDS ORDERED: NA CHLORIDE 0.9% 1,000 ML ONE (09:15)
[2021-08-22 09:50] LABS: Urine Blood 3+ (Negative); Urine Glucose Negative (Negative); Urine Protein Negative (Negative); Urine Specific Gravity 1.025 (1.005-1.030); Urine pH 6.5 (5.0-7.0)
[2021-08-22] MEDS ORDERED: DIAZEPAM 10 MG/2 ML INJ SYRINGE ONE (09:56)
[2021-08-22] MEDS ORDERED: KETOROLAC 30 MG/ML INJ ONE (09:56)
[2021-08-22 10:02] LABS: Absolute Lymphocytes (CBC) 1.8 K/uL (0.7-4.9); Hematocrit 38.2 % (36.0-45.0); MPV 7.6 fL (7.6-11.3); RBC Red Blood Cell Count 4.44 M/uL (3.86-4.86)
[2021-08-22 10:16] LABS: Albumin 4.1 g/dL (3.4-5.0); Bilirubin Total 0.3 mg/dL (0.2-1.0); Potassium 3.7 mmol/L (3.5-5.1); Protein, Total 7.9 g/dL (6.4-8.2)
[2021-08-22 10:24] LABS: Barbiturates NEGATIVE (NEGATIVE); Benzodiazepines NEGATIVE (NEGATIVE); Cocaine NEGATIVE (NEGATIVE); METHAMPHETAM NEGATIVE (NEGATIVE); Methadone NEGATIVE (NEGATIVE); Opiates NEGATIVE (NEGATIVE); Phencyclidine NEGATIVE (NEGATIVE); THC Cannibis NEGATIVE (NEGATIVE)
[2021-08-22] MEDS ORDERED: FENTANYL CITR 100 MCG/2 ML ONE (10:57)
[2021-08-22] MEDS ORDERED: ONDANSETRON 4 MG/2 ML VIAL ONE (10:57)
[2021-08-22] MEDS ORDERED: MORPHINE 4 MG/ML SYR ONE (11:31)
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
[2021-08-22 17:09] VITALS: TEMP 98.6; O2SAT 100
[2021-08-22 17:10] VITALS: BP 132/91
== END 2021-08-22 11:54 | disposition home or self-care (01) ==
LOC: ER 08:12
DX: R51.9 Headache, unspecified (principal); F07.81 Postconcussional syndrome; V89.2XXA Person injured in unspecified motor-vehicle accident, traffic, initial encounter; I10 Essential (primary) hypertension; Z87.442 Personal history of urinary calculi; Z88.5 Allergy status to narcotic agent; Z88.8 Allergy status to other drugs, medicaments and biological substances; Z91.040 Latex allergy status; Z91.048 Other nonmedicinal substance allergy status
CPT/HCPCS: 96361; 85025; 36415; 80320; 81003; 80053; 80307; 70450; 96375; 96374; 99284; J3360; J3010; J7030; J2405

== ENCOUNTER 2021-09-16 06:55 | Emergency (ER) | payer OTHER ==
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
[2021-09-16] MEDS ORDERED: ONDANSETRON 4 MG/2 ML VIAL ONE (07:49)
[2021-09-16] MEDS ORDERED: DIPHENHYDRAMINE 50 MG/ML VIAL ONE (07:49)
[2021-09-16] MEDS ORDERED: KETOROLAC 30 MG/ML INJ ONE (07:50)
[2021-09-16] MEDS ORDERED: NA CHLORIDE 0.9% 1,000 ML ONE (07:50)
[2021-09-16 08:00] LABS: Absolute Lymphocytes (CBC) 1.7 K/uL (0.7-4.9); Hematocrit 39.4 % (36.0-45.0); Lymphocytes % 35.1 % (15.3-44.8); MPV 7.9 fL (7.6-11.3); RBC Red Blood Cell Count 4.63 M/uL (3.86-4.86)
[2021-09-16 08:07] LABS: Urine Blood 3+ (Negative); Urine Glucose Negative (Negative); Urine Protein 2+ (Negative); Urine Specific Gravity 1.015 (1.005-1.030)
[2021-09-16 08:21] LABS: Albumin 4.1 g/dL (3.4-5.0); Bilirubin Total 0.5 mg/dL (0.2-1.0); Protein, Total 8.1 g/dL (6.4-8.2)
[2021-09-16 08:22] LABS: Potassium 3.9 mmol/L (3.5-5.1)
[2021-09-16] MEDS ORDERED: MORPHINE 4 MG/ML SYR ONE (08:36)
--- NOTE | 2021-09-16 08:40 | ER ---
Nurse's Notes [facility] Name: Natanael Dyson Age: 26 yrs Sex: Female : 1995 Arrival Date: 09/16/2021 Time: 06:59 Bed 5 Private MD: Diagnosis: Migraine without aura, intractable;Migraine without aura, not intractable, without status migrainosus Presentation: 09/16 07:12 Chief complaint: Patient states: Generalized headache that began 2 days ago. Pt reports ss she has been seen in the ER for this before. HX of migraines. Pt states, "I just come in when I need help and I can't take it anymore.". Coronavirus screen: Client denies travel out of the [place] in the last 14 days. Ebola Screen: Patient denies exposure to infectious person. Patient denies travel to an Ebola-affected area in the 21 days before illness onset. Initial Sepsis Screen: Does the patient meet any 2 criteria? No. Patient's initial sepsis screen is negative. Does the patient have a suspected source of infection? No. Patient's initial sepsis screen is negative. Risk Assessment: Do you want to hurt yourself or someone else? Patient reports no desire to harm self or others. Onset of symptoms was September 14, 2021. 07:12 Method Of Arrival: Ambulatory ss 07:12 Acuity: THIERNO 4 ss Triage Assessment: 08:10 Headache History: The patient has had previous headaches and this one is similar to lara previous episodes. General: Appears in no apparent distress. Pain: Also complains of. Pain: Pain currently is 7 out of 10 on a pain scale. Pain began gradually. 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 - Family history:: not pertinent. - Social history:: Smoking status: Patient denies any tobacco usage or history of. Screenin:08 Abuse screen: Denies threats or abuse. Denies injuries from another. Nutritional lara screening: No deficits noted. Tuberculosis screening: No symptoms or risk factors identified. Fall Risk None identified. Assessment: 08:08 General: Appears in no apparent distress. Behavior is cooperative, anxious. Pain: lara Complains of pain in headaches. Neuro: Reports headache. GI: Reports nausea. Vital Signs: 07:12 BP 133 / 98; Pulse 88; Resp 16; Pulse Ox 99% on R/A; Weight 63.5 kg; Height 5 ft. 1 in. ss (154.94 cm); Pain 10/10; 07:12 Body Mass Index 26.45 (63.50 kg, 154.94 cm) ss Kittrell Coma Score: 07:35 Eye Response: spontaneous(4). Verbal Response: oriented(5). Motor Response: obeys rudolph commands(6). Total: 15. ED Course: 06:59 Patient arrived in ED. ja2 07:07 Justin Estrella MD is Attending Physician. rudolph 07:12 Judi Sharpe, RN is Primary Nurse. lara 07:18 Triage completed. ss 07:18 Arm band placed on right wrist. ss 08:08 Patient has correct armband on for positive identification. Bed in low position. lara 08:08 No provider procedures requiring assistance completed. Inserted saline lock: 20 gauge lara in left forearm, using aseptic technique. 08:40 Isaiah Centeno MD is Referral Physician. rudolph 09:10 IV discontinued, intact, Pressure dressing applied. lara Administered Medications: 08:06 Drug: Benadryl (diphenhydrAMINE) 50 mg Route: IVP; Site: left forearm; lara 08:07 Follow up: Response: No adverse reaction lara 08:06 Drug: Zofran (Ondansetron) 8 mg Route: IVP; Site: left femoral; lara 08:07 Follow up: Response: No adverse reaction lara 08:07 Drug: NS 0.9% 1000 ml Route: IV; Rate: 1 bolus; Site: left forearm; lara 08:07 Drug: TORadol (ketorolac) 30 mg Route: IVP; Site: left forearm; lara 08:08 Follow up: Response: No adverse reaction lara 08:39 Drug: morphine 4 mg Route: IVP; Site: left forearm; lara 08:39 Follow up: Response: No adverse reaction lara Outcome: 08:40 Discharge ordered by . rudolph 09:10 Discharged to home lara 09:10 Condition: good 09:10 Discharge instructions given to patient, Prescriptions given X 2. 09:10 Patient left the ED. lara Signatures: Justin Estrella MD MD cha Smirch, Shelby, RN Kassandra Schaefer Heather, RN RN ha
--- NOTE | 2021-09-16 08:40 | EDPHYS ---
Physician Documentation [facility] Name: Natanael Dyson Age: 26 yrs Sex: Female : 1995 Arrival Date: 09/16/2021 Time: 06:59 Bed 5 Private MD: ED Physician Justin Estrella HPI: 09/16 07:35 This 26 yrs old Female presents to ER via Ambulatory with complaints of rudolph Headache < 24hrs Old, Stiff Neck, Ear Pain. 07:35 The patient complains of pain to the top of head, forehead, right ear and left ear. The rudolph patient describes the headache as aching, constant. Onset: The symptoms/episode began/occurred 3 day(s) ago. Associated signs and symptoms: The patient has no apparent associated signs or symptoms. Severity of symptoms: At its worst the pain was moderate, in the emergency department the pain is unchanged. Headache History: The patient has had previous headaches and this one is similar to previous episodes. The symptoms are alleviated by nothing. quiet, remaining still, the symptoms are aggravated by nothing. The patient has experienced similar episodes in the past, multiple times. 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 - Family history:: not pertinent. - Social history:: Smoking status: Patient denies any tobacco usage or history of. ROS: 07:35 Constitutional: Negative for fever, chills, and weight loss, Eyes: Negative for injury, rudolph pain, redness, and discharge, ENT: Negative for injury, pain, and discharge, Neck: Negative for injury, pain, and swelling, Cardiovascular: Negative for chest pain, palpitations, and edema, Respiratory: Negative for shortness of breath, cough, wheezing, and pleuritic chest pain, Abdomen/GI: Negative for abdominal pain, nausea, vomiting, diarrhea, and constipation, Back: Negative for injury and pain, : Negative for injury, bleeding, discharge, and swelling, MS/Extremity: Negative for injury and deformity, Skin: Negative for injury, rash, and discoloration, Psych: Negative for depression, anxiety, suicide ideation, homicidal ideation, and hallucinations, Allergy/Immunology: Negative for hives, rash, and allergies, Endocrine: Negative for neck swelling, polydipsia, polyuria, polyphagia, and marked weight changes, Hematologic/Lymphatic: Negative for swollen nodes, abnormal bleeding, and unusual bruising. 07:35 Neuro: Positive for headache. Exam: 07:35 Constitutional: This is a well developed, well nourished patient who is awake, alert, rudolph and in no acute distress. Head/Face: Normocephalic, atraumatic. Eyes: Pupils equal round and reactive to light, extra-ocular motions intact. Lids and lashes normal. Conjunctiva and sclera are non-icteric and not injected. Cornea within normal limits. Periorbital areas with no swelling, redness, or edema. ENT: Nares patent. No nasal discharge, no septal abnormalities noted. Tympanic membranes are normal and external auditory canals are clear. Oropharynx with no redness, swelling, or masses, exudates, or evidence of obstruction, uvula midline. Mucous membranes moist. Neck: Trachea midline, no thyromegaly or masses palpated, and no cervical lymphadenopathy. Supple, full range of motion without nuchal rigidity, or vertebral point tenderness. No Meningismus. Chest/axilla: Normal chest wall appearance and motion. Nontender with no deformity. No lesions are appreciated. Cardiovascular: Regular rate and rhythm with a normal S1 and S2. No gallops, murmurs, or rubs. Normal PMI, no JVD. No pulse deficits. Respiratory: Lungs have equal breath sounds bilaterally, clear to auscultation and percussion. No rales, rhonchi or wheezes noted. No increased work of breathing, no retractions or nasal flaring. Abdomen/GI: Soft, non-tender, with normal bowel sounds. No distension or tympany. No guarding or rebound. No evidence of tenderness throughout. Back: No spinal tenderness. No costovertebral tenderness. Full range of motion. Skin: Warm, dry with normal turgor. Normal color with no rashes, no lesions, and no evidence of cellulitis. MS/ Extremity: Pulses equal, no cyanosis. Neurovascular intact. Full, normal range of motion. Neuro: Awake and alert, GCS 15, oriented to person, place, time, and situation. Cranial nerves II-XII grossly intact. Motor strength 5/5 in all extremities. Sensory grossly intact. Cerebellar exam normal. Normal gait. Psych: Awake, alert, with orientation to person, place and time. Behavior, mood, and affect are within normal limits. 07:35 Neck: External neck: is normal, no acute changes, C-spine: appears grossly normal, no acute changes, ROM/movement: is normal, no acute changes, Meningeal signs: are not present, Kernig's sign is negative, Brudzinski's sign is negative, nuchal rigidity, is not appreciated. Vital Signs: 07:12 BP 133 / 98; Pulse 88; Resp 16; Pulse Ox 99% on R/A; Weight 63.5 kg; Height 5 ft. 1 in. ss (154.94 cm); Pain 10/10; 07:12 Body Mass Index 26.45 (63.50 kg, 154.94 cm) ss Feura Bush Coma Score: 07:35 Eye Response: spontaneous(4). Verbal Response: oriented(5). Motor Response: obeys rudolph commands(6). Total: 15. MDM: 07:07 Patient medically screened. rudolph 07:35 Differential diagnosis: cluster headache, migraine, otitis, temporal arteritis, tension rudolph headache, vasomotor headache. Data reviewed: vital signs, nurses notes. Data interpreted: satellite project site monitor: rate is 88 beats/min, rhythm is regular, Pulse oximetry: on room air is 99 %. Counseling: I had a detailed discussion with the patient and/or guardian regarding: the historical points, exam findings, and any diagnostic results supporting the discharge/admit diagnosis, lab results, radiology results, the need for outpatient follow up, for definitive care, a family practitioner, a neurologist. 09/16 07:19 Order name: COVID-19/FLU A+B (Document "Date of Onset" if Symptomatic) kj1 09/16 07:34 Order name: CBC with Diff; Complete Time: 08:30 rudolph 09/16 07:34 Order name: Comprehensive Metabolic Panel; Complete Time: 08:30 rudolph 09/16 08:07 Order name: Urine Dipstick-Ancillary; Complete Time: 08:30 EDMS 09/16 08:10 Order name: Urine --Ancillary (enter results) eb 09/16 08:30 Order name: UDS [facility] 09/16 07:34 Order name: Urine Dipstick-Ancillary (obtain specimen); Complete Time: 08: [facility] 09/16 07:34 Order name: Urine Test (obtain specimen); Complete Time: 08:07 [facility] Administered Medications: 08:06 Drug: Benadryl (diphenhydrAMINE) 50 mg Route: IVP; Site: left forearm; lara 08:07 Follow up: Response: No adverse reaction lara 08:06 Drug: Zofran (Ondansetron) 8 mg Route: IVP; Site: left femoral; lara 08:07 Follow up: Response: No adverse reaction lara 08:07 Drug: NS 0.9% 1000 ml Route: IV; Rate: 1 bolus; Site: left forearm; lara 08:07 Drug: TORadol (ketorolac) 30 mg Route: IVP; Site: left forearm; lara 08:08 Follow up: Response: No adverse reaction lara 08:39 Drug: morphine 4 mg Route: IVP; Site: left forearm; lara 08:39 Follow up: Response: No adverse reaction lara Disposition Summary: 09/16/21 08:40 Discharge Ordered Location: Home rudolph Problem: new rudolph Symptoms: have improved rudolph Condition: Stable rudolph Diagnosis - Migraine without aura, intractable rudolph - Migraine without aura, not intractable, without status migrainosus rudolph Followup: rudolph - With: Private Physician - When: 2 - 3 days - Reason: Recheck today's complaints, Continuance of care, Re-evaluation by your physician Followup: rudolph - With: - When: 2 - 3 days - Reason: Recheck today's complaints, Re-evaluation by your physician Discharge Instructions: - Discharge Summary Sheet rudolph - Migraine Headache rudolph - Recurrent Migraine Headache rudolph - Migraine Headache, [id number] rudolph - Recurrent Migraine Headache, [id number] rudolph Forms: - Medication Reconciliation Form rudolph - Thank You Letter rudolph - Antibiotic Education rudolph - Prescription Opioid Use rudolph Prescriptions: - Fioricet with Codeine 05-635-26-30 mg Oral capsule - take 1 capsule by ORAL route every 4 hours as needed not to exceed 6 capsules rudolph per 24hrs; 18 capsule; Refills: 0, Product Selection Permitted - Zofran 4 mg Oral Tablet - take 1 tablet by ORAL route every 12 hours As needed; 20 tablet; Refills: 0, rudolph Product Selection Permitted Signatures: Dispatcher Justin Gallardo MD MD cha Smirch, Shelby RN RN ss Judi Sharpe RN RN ha
[2021-09-16 09:08] LABS: SARS-COV-2 RT PCR NEGATIVE (NEGATIVE)
[2021-09-16 09:17] VITALS: BP 133/98; O2SAT 99
[2021-09-16 11:00] LABS: Barbiturates NEGATIVE (NEGATIVE); Benzodiazepines NEGATIVE (NEGATIVE); Cocaine NEGATIVE (NEGATIVE); METHAMPHETAM NEGATIVE (NEGATIVE); Methadone NEGATIVE (NEGATIVE); Opiates NEGATIVE (NEGATIVE); Phencyclidine NEGATIVE (NEGATIVE); THC Cannibis NEGATIVE (NEGATIVE)
[2021-09-16 13:42] LABS: Urine Specific Gravity/Preg 1.015 (1.005-1.030)
== END 2021-09-16 09:10 | disposition home or self-care (01) ==
LOC: ER 06:55
DX: G43.009 Migraine without aura, not intractable, without status migrainosus (principal); Z20.822 Contact with and (suspected) exposure to COVID-19; I10 Essential (primary) hypertension; Z88.1 Allergy status to other antibiotic agents; Z88.5 Allergy status to narcotic agent; Z88.8 Allergy status to other drugs, medicaments and biological substances; Z91.040 Latex allergy status; Z91.048 Other nonmedicinal substance allergy status
CPT/HCPCS: 85025; 36415; 81025; 81003; 80053; 0240U; 80307; 99283; J1200; J7030; J2405

== ENCOUNTER 2021-11-18 13:41 | Emergency (ER) | payer OTHER ==
[2021-11-18] MEDS ORDERED: MORPHINE 4 MG/ML SYR ONE ×2 (14:07→15:28)
[2021-11-18] MEDS ORDERED: ONDANSETRON 4 MG/2 ML VIAL ONE ×2 (14:07→15:28)
[2021-11-18 14:09] LABS: Urine Blood Trace-lysed (Negative); Urine Glucose Negative (Negative); Urine Protein 1+ (Negative); Urine Specific Gravity 1.025 (1.005-1.030)
[2021-11-18 14:22] LABS: Urine Specific Gravity/Preg 1.025 (1.005-1.030)
[2021-11-18 14:33] LABS: Absolute Lymphocytes (CBC) 2.6 K/uL (0.7-4.9); Hematocrit 41.9 % (36.0-45.0); Lymphocytes % 33.9 % (15.3-44.8); MCV 84.4 fL (80-100); MPV 8.1 fL (7.6-11.3); RBC Red Blood Cell Count 4.96 M/uL (3.86-4.86)
[2021-11-18 14:51] LABS: Albumin 4.5 g/dL (3.4-5.0); Bilirubin Direct 0.1 mg/dL (0-0.2); Bilirubin Total 0.4 mg/dL (0.2-1.0); Potassium 3.5 mmol/L (3.5-5.1); Protein, Total 8.3 g/dL (6.4-8.2)
--- NOTE | 2021-11-18 14:59 | RAD REPORT ---
EXAM DESCRIPTION: CT - Head C Spine Kristopher Srivastava - 11/18/2021 2:35 pm CLINICAL HISTORY: Head and neck injury with chest and abdominal pain status post fall off of a horse Head and neck pain . TECHNIQUE: Computed axial tomography of the head and cervical spine was obtained Computed axial tomography of the chest, abdomen and pelvis was obtained. 100 cc Isovue-300 was given intravenously coronal and sagittal reconstruction was performed. All CT scans are performed using dose optimization technique as appropriate and may include automated exposure control or mA/KV adjustment according to patient size. COMPARISON: 2020 FINDINGS: An intracranial bleed is not seen. The ventricles are normal in caliber. An extra-axial fl uid collection is not noted. Fluid within the sinuses is not seen A cervical fracture is not seen. No dislocation is seen. A mediastinal hematoma is not noted. A pleural effusion is not present. A lung contusion is not seen. The liver, spleen, pancreas, adrenals, kidneys and bladder do not demonstrate a traumatic injury IMPRESSION: No acute intracranial abnormality is seen A cervical fracture is not visualized. If the patient continues have symptoms to suggest intracranial /spinal cord pathology then MRI would be recommended. No traumatic injury involving the chest, abdomen or pelvis is seen.
--- NOTE | 2021-11-18 15:04 | ER ---
Nurse's Notes [facility] Name: Natanael Dyson Age: 26 yrs Sex: Female : 1995 Arrival Date: 11/18/2021 Time: 13:42 Bed 14 Private MD: Diagnosis: Contusion of unspecified part of neck, initial encounter;Contusion of lower back and pelvis Presentation: 11/18 13:48 Chief complaint: Patient states: "bucked off horse at 11 am, tried to keep from coming [facility] here but was unable to sit or bear weight on both legs. I am also having pain in my right shoulder with movement. Care prior to arrival: tylenol 1000mg and a heating pad. Mechanism of Injury: Fall horse to ground. Trauma event details: Injury occurred in the [facility], [place] Injury occurred: November 18, 2021 Injury occurred at: 11:00. 13:48 Acuity: THIERNO 3 [facility] 13:48 Method Of Arrival: Ambulatory [facility] 14:10 Ebola Screen: Patient denies exposure to infectious person. Patient denies travel to an vg1 Ebola-affected area in the 21 days before illness onset. Initial Sepsis Screen: Does the patient meet any 2 criteria? HR > 90 bpm. Does the patient have a suspected source of infection? No. Patient's initial sepsis screen is negative. Risk Assessment: Do you want to hurt yourself or someone else? Patient reports no desire to harm self or others. Onset of symptoms was November 18, 2021 at 11:00. Trauma Activation: Physician: ED Physician; Name: Chapin; Notified At: ; Arrived At: Physician: General Surgeon; Name: ; Notified At: ; Arrived At: Physician: Radiology; Name: ; Notified At: ; Arrived At: Physician: Respiratory; Name: ; Notified At: ; Arrived At: Physician: Lab; Name: ; Notified At: ; Arrived At: Historical: - Allergies: 14:07 Compazine; vg1 14:07 Haldol; vg1 14:07 Latex, Natural Rubber; vg1 14:07 Reglan; vg1 - PMHx: 14:07 Asthma; Hypertensive disorder; Kidney stones; Migraines; vg1 - Immunization history: Last tetanus immunization: - up to date. - Family history:: not pertinent. - Hospitalizations: : No recent hospitalization is reported. Screenin:51 Abuse screen: Denies threats or abuse. Tuberculosis screening: No symptoms or risk bh1 factors identified. 14:07 Nutritional screening: No deficits noted. Fall Risk No fall in past 12 months (0 pts). vg1 No secondary diagnosis (0 pts). IV access (20 points). Ambulatory Aid- None/Bed Rest/Nurse Assist (0 pts). Gait- Normal/Bed Rest/Wheelchair (0 pts) Mental Status- Oriented to own ability (0 pts). Total Thomas Fall Scale indicates No Risk (0-24 pts). Primary Survey: 13:51 NO uncontrolled hemorrhage observed. A: The client is awake and alert. The airway is bh1 patent. Breathing/Chest: Spontaneous respiratory effort, equal unlabored respirations, breath sounds clear bilaterally, regular pattern, symmetrical chest rise and fall. Circulation: No external hemorrhage present. Regular and strong central pulse, skin warm/dry/normal color. Disability Pupils are equal, round, reactive to light and accommodation. Exposure/Environment: There is no evidence of uncontrolled external bleeding. No obvious injuries are noted at this time. A warming method has been applied: A warm blanket has been provided to the patient. Reassessment Alertness and Airway: Awake and alert. The airway is patent. Breathing: Spontaneous respiratory effort, equal unlabored respirations, breath sounds clear bilaterally, regular pattern with symmetrical chest rise and fall. Circulation: No external hemorrhage noted. Regular and strong central pulse, skin warm/dry/normal color. Disability: Pupils Pupils are equal, round, reactive to light and accomodation. Secondary Survey: 14:08 HEENT: No deficits noted. Gastrointestinal: Abdomen is soft. : No signs and/or vg1 symptoms were reported regarding the genitourinary system. Musculoskeletal: Circulation, motion, and sensation intact. Assessment: 13:48 General: Appears uncomfortable, Behavior is calm, cooperative, appropriate for age. bh1 Pain: Complains of pain in back of right arm and buttocks Pain does not radiate. Pain currently is 10 out of 10 on a pain scale. Quality of pain is described as sharp, stabbing, Pain began suddenly. 14:06 General: Appears uncomfortable, Behavior is calm, cooperative. Pain: Complains of pain vg1 in buttocks and Right shoulder Pain currently is 9 out of 10 on a pain scale. Quality of pain is described as sharp, Pain began 3 hours ago. Neuro: Level of Consciousness is awake, alert, obeys commands, Oriented to person, place, time, situation, Denies paresthesias numbness in right leg and left leg headache. Cardiovascular: Patient's skin is warm and dry. Respiratory: Airway is patent Respiratory effort is even, unlabored, Breath sounds are clear bilaterally. GI: Reports nausea. : No deficits noted. EENT: No signs and/or symptoms were reported regarding the EENT system. Derm: Bruising that is blue; right clavicle to right shoulder. Musculoskeletal: Circulation, motion, and sensation intact. 15:05 Reassessment: Patient appears in no apparent distress at this time. No changes from 1 previously documented assessment. Patient and/or family updated on plan of care and expected duration. Pain level reassessed. Patient is alert, oriented x 3, equal unlabored respirations, skin warm/dry/pink. Vital Signs: 13:51 BP 127 / 87; Pulse 130; Resp 20; Temp 98.4(T); Pulse Ox 100% on R/A; Weight 58.97 kg; bh1 Height 5 ft. 1 in. (154.94 cm); Pain 10/10; 14:50 BP 110 / 69; Pulse 98; Resp 16; Pulse Ox 100% on R/A; vg1 13:51 Body Mass Index 24.56 (58.97 kg, 154.94 cm) 1 Logan Coma Score: 13:51 Eye Response: spontaneous(4). Verbal Response: oriented(5). Motor Response: obeys 1 commands(6). Total: 15. Trauma Score (Adult): 13:51 Eye Response: spontaneous(1); Verbal Response: oriented(1); Motor Response: obeys 1 commands(2); Systolic BP: > 89 mm Hg(4); Respiratory Rate: 10 to 29 per min(4); Giovana Score: 15; Trauma Score: 12 ED Course: 13:42 Patient arrived in ED. am2 13:47 Harjit Samson MD is Attending Physician. rn 13:50 Triage completed. bh1 13:50 Fany Duque RN is Primary Nurse. vg1 13:51 Patient has correct armband on for positive identification. bh1 13:51 Patient maintains SpO2 saturation greater than 95% on room air. bh1 14:10 Arm band placed on. vg1 14:10 Thermoregulation: warm blanket given to patient. vg1 14:14 Missed attempt(s): 20 gauge in left antecubital area. Bleeding controlled, band aid tw2 applied, catheter tip intact. Inserted saline lock: 22 gauge in left antecubital area, using aseptic technique. Blood collected. 14:37 CT Traumagram (Head C Spine CAP W Con) In Process Unspecified. EDMS 15:42 No provider procedures requiring assistance completed. IV discontinued, intact, vg1 bleeding controlled, No redness/swelling at site. Pressure dressing applied. Administered Medications: 14:15 Drug: Zofran (Ondansetron) 4 mg Route: IVP; Site: left antecubital; vg1 15:29 Follow up: Response: No adverse reaction vg1 14:17 Drug: morphine 4 mg Route: IVP; Infused Over: 4 mins; Site: left antecubital; vg1 15:29 Follow up: Response: No adverse reaction; No change in condition vg1 15:19 Drug: Zofran (Ondansetron) 4 mg Route: IVP; Site: left antecubital; vg1 15:43 Follow up: Response: No adverse reaction; Marked relief of symptoms vg1 15:21 Drug: morphine 4 mg Route: IVP; Infused Over: 4 mins; Site: left antecubital; vg1 15:43 Follow up: Response: No adverse reaction; Pain is decreased vg1 Medication: 15:43 VIS not applicable for this client. vg1 Intake: 15:42 PO: 0ml; IV: 0ml; Total: 0ml. vg1 Outcome: 15:04 Discharge ordered by . rn 15:42 Discharged to home ambulatory, with family. vg1 15:42 Condition: good 15:42 Discharge instructions given to patient, Instructed on discharge instructions, follow up and referral plans. Demonstrated understanding of instructions, follow-up care. 15:43 Patient left the ED. vg1 Signatures: Dispatcher [employer] EDMS Harjit Samson MD MD rn Wise, Tara RN RN tw2 Ileana Suarez Victoria RN RN vg1 Miley Lancaster RN RN 1
--- NOTE | 2021-11-18 15:05 | EDPHYS ---
Physician Documentation [facility] Name: Natanael Dyson Age: 26 yrs Sex: Female : 1995 Arrival Date: 11/18/2021 Time: 13:42 Bed 14 Private MD: ED Physician Harjit Samson HPI: 11/18 14:29 This 26 yrs old Female presents to ER via Ambulatory with complaints of Fall Injury, rn Shoulder Pain, tailbone pain. 14:29 Details of fall: The patient fell from a height, on horse. Onset: The symptoms/episode rn began/occurred just prior to arrival. Associated injuries: The patient sustained injury to the head, neck injury, injury to the low back, injury to the chest. Severity of symptoms: At their worst the symptoms were moderate, in the emergency department the symptoms are unchanged. The patient has not experienced similar symptoms in the past. The patient has not recently seen a physician. Pt reports fell off of horse, [employer], landed on buttocks, reports pain to head, right neck, right ribs, right clavicle, and tailbone. No LOC. Doesn't take blood thinners. . Historical: - Allergies: 14:07 Compazine; vg1 14:07 Haldol; vg1 14:07 Latex, Natural Rubber; vg1 14:07 Reglan; vg1 - PMHx: 14:07 Asthma; Hypertensive disorder; Kidney stones; Migraines; vg1 - Immunization history: Last tetanus immunization: - up to date. - Family history:: not pertinent. - Hospitalizations: : No recent hospitalization is reported. ROS: 14:29 Constitutional: Negative for fever, chills, and weight loss, Eyes: Negative for injury, rn pain, redness, and discharge, Neck: + neck pain Cardiovascular: + right rib pain and injury Respiratory: Negative for shortness of breath, cough, wheezing, and pleuritic chest pain, Abdomen/GI: Negative for abdominal pain, nausea, vomiting, diarrhea, and constipation, Back: + lower back pain and tailbone pain MS/Extremity: Negative for injury and deformity, Skin: Negative for injury, rash, and discoloration, Neuro: Negative for weakness, numbness, tingling, and seizure. Exam: 14:29 Constitutional: This is a well developed, well nourished patient who is awake, alert, rn appears uncomfortable but standing and changing herself Head/Face: Normocephalic, atraumatic. Eyes: Periorbital areas with no swelling, redness, or edema. Neck: Trachea midline, no masses palpated no vertebral point tenderness. + ecchymosis along right anterior/lateral neck. Cardiovascular: Tachycardic, regular. No pulse deficits. Respiratory: No increased work of breathing, no retractions or nasal flaring. Abdomen/GI: Soft, non-tender Back: + lumbar and coccyx tenderness, no stepoff Skin: Warm, dry MS/ Extremity: Pulses equal, no cyanosis. Neurovascular intact. Full, normal range of motion. Equal circumference. Neuro: Awake and alert, GCS 15, oriented to person, place, time, and situation. Cranial nerves II-XII grossly intact. Motor strength 5/5 in all extremities. Sensory grossly intact. Cerebellar exam normal. Normal gait. Vital Signs: 13:51 BP 127 / 87; Pulse 130; Resp 20; Temp 98.4(T); Pulse Ox 100% on R/A; Weight 58.97 kg; bh1 Height 5 ft. 1 in. (154.94 cm); Pain 10/10; 14:50 BP 110 / 69; Pulse 98; Resp 16; Pulse Ox 100% on R/A; vg1 13:51 Body Mass Index 24.56 (58.97 kg, 154.94 cm) bh1 Giovana Coma Score: 13:51 Eye Response: spontaneous(4). Verbal Response: oriented(5). Motor Response: obeys bh1 commands(6). Total: 15. Trauma Score (Adult): 13:51 Eye Response: spontaneous(1); Verbal Response: oriented(1); Motor Response: obeys bh1 commands(2); Systolic BP: > 89 mm Hg(4); Respiratory Rate: 10 to 29 per min(4); Giovana Score: 15; Trauma Score: 12 MDM: 13:47 Patient medically screened. rn 15:03 Differential diagnosis: abrasion, closed head injury, contusion, fracture, sprain, rn strain. Data reviewed: vital signs, nurses notes, lab test result(s), radiologic studies, CT scan, and as a result, I will discharge patient. Counseling: I had a detailed discussion with the patient and/or guardian regarding: the historical points, exam findings, and any diagnostic results supporting the discharge/admit diagnosis, lab results, radiology results, the need for outpatient follow up, to return to the emergency department if symptoms worsen or persist or if there are any questions or concerns that arise at home. Response to treatment: the patient's symptoms have mildly improved after treatment, and as a result, I will discharge patient. Special discussion: I discussed with the patient/guardian in detail that at this point there is no indication for admission to the hospital. It is understood, however, that if the symptoms persist or worsen the patient needs to return immediately for re-evaluation. ED course: No acute traumatic findings on CT, no focal extremity injury that needs xray imaging, will dc home with pcp f/u.. 11/18 13:55 Order name: Basic Metabolic Panel; Complete Time: 15:01 11/18 13:55 Order name: CBC with Diff; Complete Time: 15: 11/18 13:55 Order name: LFT's; Complete Time: 15: 11/18 14:09 Order name: Urine Dipstick-Ancillary; Complete Time: 15:01 EDNV 11/18 14:20 Order name: Urine --Ancillary (enter results) em1 11/18 14:23 Order name: Urine --Ancillary; Complete Time: 15:01 EDNV 11/18 13:55 Order name: CT Traumagram (Head C Spine CAP W Con); Complete Time: 15:01 11/18 13:55 Order name: Labs collected and sent; Complete Time: 14:16 11/18 13:55 Order name: IV Start; Complete Time: 14:16 rn 11/18 14:05 Order name: Urine Dipstick-Ancillary (obtain specimen); Complete Time: 14:16 em1 11/18 14:05 Order name: Urine Test (obtain specimen); Complete Time: 14:16 em1 Administered Medications: 14:15 Drug: Zofran (Ondansetron) 4 mg Route: IVP; Site: left antecubital; vg1 15:29 Follow up: Response: No adverse reaction vg1 14:17 Drug: morphine 4 mg Route: IVP; Infused Over: 4 mins; Site: left antecubital; vg1 15:29 Follow up: Response: No adverse reaction; No change in condition vg1 15:19 Drug: Zofran (Ondansetron) 4 mg Route: IVP; Site: left antecubital; vg1 15:43 Follow up: Response: No adverse reaction; Marked relief of symptoms vg1 15:21 Drug: morphine 4 mg Route: IVP; Infused Over: 4 mins; Site: left antecubital; vg1 15:43 Follow up: Response: No adverse reaction; Pain is decreased vg1 Disposition Summary: 11/18/21 15:04 Discharge Ordered Location: Home rn Problem: new rn Symptoms: have improved rn Condition: Stable rn Diagnosis - Contusion of unspecified part of neck, initial encounter rn - Contusion of lower back and pelvis rn Followup: rn - With: Private Physician - When: As needed - Reason: Recheck today's complaints, Re-evaluation by your physician Discharge Instructions: - Discharge Summary Sheet rn - Contusion rn - Neck Contusion rn Forms: - Medication Reconciliation Form rn - Thank You Letter rn - Antibiotic pattern gater - Prescription Opioid Use rn Signatures: Dispatcher [employer] Harjit Elliott MD MD rn Martinez, Eric em1 Fany Duque RN RN 1 Miley Lancaster RN RN 1
[2021-11-18 15:52] VITALS: TEMP 98.4; O2SAT 100
[2021-11-18 15:54] VITALS: BP 110/69
== END 2021-11-18 15:43 | disposition home or self-care (01) ==
LOC: ER 13:41
DX: S30.0XXA Contusion of lower back and pelvis, initial encounter (principal); S10.83XA Contusion of other specified part of neck, initial encounter; V80.010A Animal-rider injured by fall from or being thrown from horse in noncollision accident, initial encounter; I10 Essential (primary) hypertension; Z88.1 Allergy status to other antibiotic agents; Z88.5 Allergy status to narcotic agent; Z88.8 Allergy status to other drugs, medicaments and biological substances; Z87.442 Personal history of urinary calculi; Z91.040 Latex allergy status
CPT/HCPCS: 85025; 80048; 36415; 81025; 80076; 81003; 70450; 72125; 71260; 74177; Q9967; J2405 ×2; 96374; 96375; 99284

== ENCOUNTER 2021-12-05 18:35 | Emergency (ER) | payer OTHER ==
--- OUTSIDE RECORDS SUMMARY | 2021-12-05 18:41 | XMS REPORT | Continuity of Care Document ---
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 Take 25 mg [facility] MINE 5-19 by mouth ity of (BENADRYL) 13:01: every 6 [place] 25 mg 48 (six) Medical capsule hours as Branch needed for Allergies. diphenhydrA 2021-0 Yes 25mg Take 25 mg [facility] MINE 5-19 by mouth ity of (BENADRYL) 13:01: every 6 [place] 25 mg 48 (six) Medical capsule hours as Branch needed for Allergies. diphenhydrA 2021-0 Yes 25mg Take 25 mg [facility] MINE 5-19 by mouth ity of (BENADRYL) 13:01: every 6 [place] 25 mg 48 (six) Medical capsule hours as Branch needed for Allergies. diphenhydrA 2021-0 Yes 25mg Take 25 mg [facility] MINE 5-19 by mouth ity of (BENADRYL) 13:01: every 6 [place] 25 mg 48 (six) Medical capsule hours as Branch needed for Allergies. diphenhydrA 2022-0 Yes 25mg Take 25 mg [facility] MINE 5-19 by mouth ity of (BENADRYL) 13:01: every 6 [place] 25 mg 48 (six) Medical capsule hours as Branch needed for Allergies. diphenhydrA 2-0 Yes 25mg Take 25 mg [facility] MINE 5-19 by mouth ity of (BENADRYL) 13:01: every 6 [place] 25 mg 48 (six) Medical capsule hours as Branch needed for Allergies. diphenhydrA 2022-0 Yes 25mg Take 25 mg [facility] MINE 5-19 by mouth ity of (BENADRYL) 13:01: every 6 [place] 25 mg 48 (six) Medical capsule hours as Branch needed for Allergies. diphenhydrA 2022-0 Yes 25mg Take 25 mg [facility] MINE 5-19 by mouth ity of (BENADRYL) 13:01: every 6 [place] 25 mg 48 (six) Medical capsule hours as Branch needed for Allergies. diphenhydrA 2022-0 Yes 25mg Take 25 mg [facility] MINE 5-19 by mouth ity of (BENADRYL) 13:01: every 6 [place] 25 mg 48 (six) Medical capsule hours as Branch needed for Allergies. diphenhydrA 2022-0 Yes 25mg Take 25 mg [facility] MINE 5-19 by mouth ity of (BENADRYL) 13:01: every 6 [place] 25 mg 48 (six) Medical capsule hours as Branch needed for Allergies. mometasone 2022-0 Yes [id number] 1{spray Use 1 [facility] 50 5-19 } [place] in ity of mcg/actuati 00:00: each [place] on nasal 00 nostril 2 Medica l spray (two) Branch times daily. mometasone 2022-0 Yes [id number] 1{spray Use 1 [facility] 50 5-19 } [place] in ity of mcg/actuati 00:00: each [place] on nasal 00 nostril 2 Medica l spray (two) Branch times daily. mometasone 2022-0 Yes [id number] 1{spray Use 1 [facility] 50 5-19 } [place] in ity of mcg/actuati 00:00: each [place] on nasal 00 nostril 2 Medica l spray (two) Branch times daily. mometasone 2022-0 Yes [id number] 1{spray Use 1 [facility] 50 5-19 } [place] in ity of mcg/actuati 00:00: each [place] on nasal 00 nostril 2 Medica l spray (two) Branch times daily. mometasone 2022-0 Yes [id number] 1{spray Use 1 [facility] 50 5-19 } [place] in ity of mcg/actuati 00:00: each [place] on nasal 00 nostril 2 Medica l spray (two) Branch times daily. mometasone 2021-0 Yes [id number] 1{spray Use 1 [facility] 50 5-19 } [place] in ity of mcg/actuati 00:00: each [place] on nasal 00 nostril 2 Medica l spray (two) Branch times daily. mometasone 2021-0 Yes [id number] 1{spray Use 1 [facility] 50 5-19 } [place] in ity of mcg/actuati 00:00: each [place] on nasal 00 nostril 2 Medica l spray (two) Branch times daily. mometasone 2021- Yes [id number] 1{spray Use 1 [facility] 50 5-19 } [place] in ity of mcg/actuati 00:00: each [place] on nasal 00 nostril 2 Medica l spray (two) Branch times daily. mometasone 2021- Yes [id number] 1{spray Use 1 [facility] 50 5-19 } [place] in ity of mcg/actuati 00:00: each [place] on nasal 00 nostril 2 Medica l spray (two) Branch times daily. mometasone 2021-0 Yes [id number] 1{spray Use 1 [facility] 50 5-19 } [place] in ity of mcg/actuati 00:00: each [place] on nasal 00 nostril 2 Medica l spray (two) Branch times daily. mometasone 2021-0 Yes [id number] 1{spray Use 1 [facility] 50 5-19 } [place] in ity of mcg/actuati 00:00: each [place] on nasal 00 nostril 2 Medica l spray (two) Branch times daily. mometasone 2021- Yes [id number] 1{spray Use 1 [facility] 50 5-19 } [place] in ity of mcg/actuati 00:00: each [place] on nasal 00 nostril 2 Medica l spray (two) Branch times daily. cetirizine Yes [id number] 10mg Take 1 U nivers (ZYRTEC) 10 5-16 tablet by ity of mg tablet 00:00: mouth daily. Medical Branch cetirizine Yes [id number] 10mg Take 1 U nivers (ZYRTEC) 10 5-16 tablet by ity of mg tablet 00:00: mouth 00 daily. Medical Branch cetirizine Yes [id number] 10mg Take 1 U nivers (ZYRTEC) 10 5-16 tablet by ity of mg tablet 00:00: mouth [place] 00 daily. Medical Branch cetirizine Yes [id number] 10mg Take 1 U nivers (ZYRTEC) 10 5-16 tablet by ity of mg tablet 00:00: mouth [place] 00 daily. Medical Branch cetirizine Yes [id number] 10mg Take 1 U nivers (ZYRTEC) 10 5-16 tablet by ity of mg tablet 00:00: mouth [place] 00 daily. Medical Branch cetirizine Yes [id number] 10mg Take 1 U nivers (ZYRTEC) 10 5-16 tablet by ity of mg tablet 00:00: mouth [place] 00 daily. Medical Branch cetirizine Yes [id number] 10mg Take 1 U nivers (ZYRTEC) 10 5-16 tablet by ity of mg tablet 00:00: mouth [place] 00 daily. Medical Branch cetirizine Yes [id number] 10mg Take 1 U nivers (ZYRTEC) 10 5-16 tablet by ity of mg tablet 00:00: mouth [place] 00 daily. Medical Branch cetirizine Yes [id number] 10mg Take 1 U nivers (ZYRTEC) 10 5-16 tablet by ity of mg tablet 00:00: mouth [place] 00 daily. Medical Branch cetirizine Yes [id number] 10mg Take 1 U nivers (ZYRTEC) 10 5-16 tablet by ity of mg tablet 00:00: mouth [place] 00 daily. Medical Branch cetirizine Yes [id number] 10mg Take 1 U nivers (ZYRTEC) 10 5-16 tablet by ity of mg tablet 00:00: mouth [place] 00 daily. Medical Branch cetirizine 0 Yes [id number] 10mg Take 1 U nivers (ZYRTEC) 10 5-16 tablet by ity of mg tablet 00:00: mouth [place] 00 daily. Medical Branch bromphenira 2021- No [id number] 5mL Take 5 mL [facility] mine-pseudo 5-16 06-15 by mouth 4 i ty of ephedrine-D 00:00: 00:00 (four) [place] as M (BROMFED 00 :00 times Medical DM) 2-30-10 daily as Bran ch mg/5 mL needed for syrup Congestion /Allergies or Cough. butalbital- 2021-0 Yes Un[facility] s aspirin-caf 5-09 ity of feine-codei 00:00: [facility] 00 Medical capsule Branch DULoxetine 2022-0 Yes [facility] 30 mg 5-09 ity of capsule 00:00: [place] [facility] gabapentin 2022-0 Yes [facility] 300 mg 5-09 ity of capsule 00:00: [place] [facility] ondansetron 2022-0 Yes Univer s 4 mg tablet 5-09 ity of 00:00: [place] [facility] DULoxetine 2022-0 Yes [facility] 30 mg 5-09 ity of capsule 00:00: [place] [facility] gabapentin 2022-0 Yes [facility] 300 mg 5-09 ity of capsule 00:00: [place] [facility] ondansetron 2022-0 Yes Univer s 4 mg tablet 5-09 ity of 00:00: [place] [facility] DULoxetine 2022-0 Yes [facility] 30 mg 5-09 ity of capsule 00:00: [place] [address] Medical Branch gabapentin 2022-0 Yes [facility] 300 mg 5-09 ity of capsule 00:00: [place] [facility] ondansetron 2022-0 Yes Univer s 4 mg tablet 5-09 ity of 00:00: [place] [facility] DULoxetine 2022-0 Yes [facility] 30 mg 5-09 ity of capsule 00:00: [place] [facility] gabapentin 2022-0 Yes [facility] 300 mg 5-09 ity of capsule 00:00: [place] [facility] ondansetron 2022-0 Yes Univer s 4 mg tablet 5-09 ity of 00:00: [place] [facility] DULoxetine 2022-0 Yes [facility] 30 mg 5-09 ity of capsule 00:00: [place] [facility] gabapentin 2022-0 Yes [facility] 300 mg 5-09 ity of capsule 00:00: [place] [facility] ondansetron 2022-0 Yes Univer s 4 mg tablet 5-09 ity of 00:00: [place] [facility] DULoxetine 2022-0 Yes [facility] 30 mg 5-09 ity of capsule 00:00: [place] [address] Medical Branch gabapentin 2022-0 Yes [facility] 300 mg 5-09 ity of capsule 00:00: [place] 00 Medical Branch ondansetron 2022-0 Yes Univer s 4 mg tablet 5-09 ity of 00:00: [place] 00 Medical Branch DULoxetine 2022-0 Yes [facility] 30 mg 5-09 ity of capsule 00:00: [place] 00 Medical Branch gabapentin 2022-0 Yes [facility] 300 mg 5-09 ity of capsule 00:00: [place] 00 Medical Branch ondansetron 2022-0 Yes Univer s 4 mg tablet 5-09 ity of 00:00: [place] 00 Medical Branch DULoxetine 2022-0 Yes [facility] 30 mg 5-09 ity of capsule 00:00: [place] [address] Medical Branch gabapentin 2022-0 Yes [facility] 300 mg 5-09 ity of capsule 00:00: [place] [facility] ondansetron 2022-0 Yes Univer s 4 mg tablet 5-09 ity of 00:00: [place] [address] Medical Branch DULoxetine 2022-0 Yes [facility] 30 mg 5-09 ity of capsule 00:00: [place] [address] Medical Branch gabapentin 2022-0 Yes [facility] 300 mg 5-09 ity of capsule 00:00: [place] [address] Medical Branch ondansetron 2022-0 Yes Univer s 4 mg tablet 5-09 ity of 00:00: [place] [address] Medical Branch DULoxetine 2022-0 Yes [facility] 30 mg 5-09 ity of capsule 00:00: [place] [address] Medical Branch gabapentin 2022-0 Yes [facility] 300 mg 5-09 ity of capsule 00:00: [place] [address] Medical Branch ondansetron 2022-0 Yes Univer s 4 mg tablet 5-09 ity of 00:00: [place] [address] Medical Branch DULoxetine 2022-0 Yes [facility] 30 mg 5-09 ity of capsule 00:00: [place] [address] Medical Branch gabapentin 2022-0 Yes [facility] 300 mg 5-09 ity of capsule 00:00: [place] [address] Medical Branch ondansetron 2022-0 Yes Univer s 4 mg tablet 5-09 ity of 00:00: [place] [address] Medical Branch DULoxetine 2022-0 Yes [facility] 30 mg 5-09 ity of capsule 00:00: [place] [address] Medical Branch gabapentin 2022-0 Yes [facility] 300 mg 5-09 ity of capsule 00:00: [place] 00 Medical Branch ondansetron 2022-0 Yes Univer s 4 mg tablet 5- ity of 00:00: [place] 00 Medical Branch butalbital- 2021-0 2- No Unive rs aspirin-caf 09-18 06-15 ity of vincent-codei 00:00: 00:00 [place] ne per 00 :00 Medical capsule Branch amLODIPine 2-0 Yes Univers 5 mg tablet 4-22 ity of 00:00: [place] [facility] cyclobenzap 2021-0 Yes Univer s rine 10 mg 4-22 ity of tablet 00:00: [place] [facility] amLODIPine 2022-0 Yes 5mg Take 5 mg [facility] 5 mg tablet 4-22 by mouth. ity of 00:00: [place] [facility] amLODIPine 2-0 Yes Univers 5 mg tablet 4-22 ity of 00:00: [place] [facility] cyclobenzap 2021-0 Yes Univer s rine 10 mg 4-22 ity of tablet 00:00: [place] [facility] amLODIPine 2-0 Yes 5mg Take 5 mg [facility] 5 mg tablet 4-22 by mouth. ity of 00:00: [place] [facility] amLODIPine 2-0 Yes Univers 5 mg tablet 4-22 ity of 00:00: [place] [facility] cyclobenzap 2021-0 Yes Univer s rine 10 mg 4-22 ity of tablet 00:00: [place] [facility] amLODIPine 2-0 Yes 5mg Take 5 mg [facility] 5 mg tablet 4-22 by mouth. ity of 00:00: [place] [facility] amLODIPine 2-0 Yes Univers 5 mg tablet 4-22 ity of 00:00: [place] [facility] cyclobenzap 2-0 Yes Univer s rine 10 mg 4-22 ity of tablet 00:00: [place] [facility] amLODIPine 2022-0 Yes 5mg Take 5 mg [facility] 5 mg tablet 4-22 by mouth. ity of 00:00: [place] [facility] amLODIPine 2-0 Yes Univers 5 mg tablet 4-22 ity of 00:00: [place] [facility] cyclobenzap 2-0 Yes Univer s rine 10 mg 4-22 ity of tablet 00:00: [place] [facility] amLODIPine 2022-0 Yes 5mg Take 5 mg [facility] 5 mg tablet 4-22 by mouth. ity of 00:00: Medical Branch amLODIPine 2-0 Yes Univers 5 mg tablet 4-22 ity of 00:00: Medical Branch amLODIPine 2021-0 Yes 5mg Take 5 mg [facility] 5 mg tablet 4-22 by mouth. ity of 00:00: Medical Branch amLODIPine 2-0 Yes Univers 5 mg tablet 4-22 ity of 00:00: Medical Branch amLODIPine 2021-0 Yes 5mg Take 5 mg [facility] 5 mg tablet 4-22 by mouth. ity of 00:00: Medical Branch amLODIPine 2021-0 Yes [facility] 5 mg tablet 4-22 ity of 00:00: [place] [facility] amLODIPine 2021-0 Yes 5mg Take 5 mg Un [facility] 5 mg tablet 4-22 by mouth. ity of 00:00: [place] [facility] amLODIPine 2021-0 Yes [facility] 5 mg tablet 4-22 ity of 00:00: [place] [facility] amLODIPine 2021-0 Yes 5mg Take 5 mg Un [facility] 5 mg tablet 4-22 by mouth. ity of 00:00: Medical Branch amLODIPine 2021-0 Yes Univers 5 mg tablet 4-22 ity of 00:00: Medical Branch amLODIPine 2021-0 Yes 5mg Take 5 mg [facility] 5 mg tablet 4-22 by mouth. ity of 00:00: [place] [facility] amLODIPine 2021-0 Yes Univers 5 mg tablet 4-22 ity of 00:00: [place] [facility] amLODIPine 2-0 Yes 5mg Take 5 mg Un [facility] 5 mg tablet 4-22 by mouth. ity of 00:00: Medical Branch amLODIPine 2021-0 Yes Univers 5 mg tablet 4-22 ity of 00:00: Medical Branch amLODIPine 2021-0 Yes 5mg Take 5 mg [facility] 5 mg tablet 4-22 by mouth. ity of 00:00: [place] [facility] cyclobenzap 2021-0 2021- No Unive rs rine 10 mg 4- 07-09 ity of tablet 00:00: 00:00 [place] 00 :00 Medical Branch buPROPion 2021-0 Yes Univers XL 150 mg 4-20 ity of 24 hr 00:00: [facility] Medical Branch cyclobenzap 0 Yes 10mg Take 10 mg Univers rine 10 mg 4-20 by mouth. ity of tablet 00:00: [place] [facility] buPROPion Yes Univers XL 150 mg 4-20 ity of 24 hr 00:00: [place] tablet Medical Branch cyclobenzap Yes 10mg Take 10 mg Univers rine 10 mg 4-20 by mouth. ity of tablet 00:00: [place] [facility] buPROPion Yes Univers XL 150 mg 4-20 ity of 24 hr 00:00: [place] tablet Medical Branch cyclobenzap Yes 10mg Take 10 mg Univers rine 10 mg 4-20 by mouth. ity of tablet 00:00: [place] [facility] Branch buPROPion Yes Univers XL 150 mg 4-20 ity of 24 hr 00:00: [place] tablet [facility] Branch cyclobenzap Yes 10mg Take 10 mg Univers rine 10 mg 4-20 by mouth. ity of tablet 00:00: [place] [facility] Branch buPROPion Yes Univers XL 150 mg 4-20 ity of 24 hr 00:00: [place] tablet Medical Branch cyclobenzap Yes 10mg Take 10 mg Univers rine 10 mg 4-20 by mouth. ity of tablet 00:00: [place] [facility] Branch buPROPion Yes Univers XL 150 mg 4-20 ity of 24 hr 00:00: [place] tablet [facility] Branch buPROPion Yes Univers XL 150 mg 4-20 ity of 24 hr 00:00: [place] tablet Medical Branch buPROPion 0 Yes Univers XL 150 mg 4-20 ity of 24 hr 00:00: [place] tablet Medical Branch buPROPion Yes Univers XL 150 mg 4-20 ity of 24 hr 00:00: [place] tablet Medical Branch buPROPion 0 Yes Univers XL 150 mg 4-20 ity of 24 hr 00:00: [place] tablet Medical Branch buPROPion 0 Yes Univers XL 150 mg 4-20 ity of 24 hr 00:00: [place] tablet [facility] Branch buPROPion Yes Univers XL 150 mg 4-20 ity of 24 hr 00:00: [place] tablet Medical [place] buPROPion 0 2022- No 150mg Take 150 Un [facility] XL 150 mg 4-20 04-21 mg by ity of 24 hr 00:00: 04:59 mouth. [place] tablet 00 :00 Medical Branch buPROPion 0 2022- No 150mg Take 150 [facility] XL 150 mg 4-20 04-21 mg by ity of 24 hr 00:00: 04:59 mouth. [place] tablet 00 :00 Medical Branch buPROPion 0 2022- No 150mg Take 150 [facility] XL 150 mg 4-20 04-21 mg by ity of 24 hr 00:00: 04:59 mouth. [place] tablet 00 :00 Medical Branch buPROPion 0 2022- No 150mg Take 150 [facility] XL 150 mg 4-20 04-21 mg by ity of 24 hr 00:00: 04:59 mouth. [place] tablet 00 :00 Medical Branch buPROPion 2022- No 150mg Take 150 [facility] XL 150 mg 4-20 04-21 mg by ity of 24 hr 00:00: 04:59 mouth. [place] tablet 00 :00 Medical Branch buPROPion 0 2022- No 150mg Take 150 [facility] XL 150 mg 4-20 04-21 mg by ity of 24 hr 00:00: 04:59 mouth. [place] tablet 00 :00 Medical Branch buPROPion 2022- No 150mg Take 150 [facility] XL 150 mg 4-20 04-21 mg by ity of 24 hr 00:00: 04:59 mouth. [place] tablet 00 :00 Medical Branch buPROPion 0 2022- No 150mg Take 150 [facility] XL 150 mg 4-20 04-21 mg by ity of 24 hr 00:00: 04:59 mouth. [place] tablet 00 :00 Medical Branch buPROPion 2021-0 3- No 150mg Take 150 [facility] XL 150 mg 4-20 04-21 mg by ity of 24 hr 00:00: 04:59 mouth. [place] tablet 00 :00 Medical Branch buPROPion 2021-0 2022- No 150mg Take 150 [facility] XL 150 mg 4-20 04-21 mg by ity of 24 hr 00:00: 04:59 mouth. [place] tablet 00 :00 Medical Branch buPROPion 2022- No 150mg Take 150 [facility] XL 150 mg 4-20 04-21 mg by ity of 24 hr 00:00: 04:59 mouth. [place] tablet 00 :00 Medical Branch buPROPion 2022- No 150mg Take 150 [facility] XL 150 mg 4-20 04-21 mg by ity of 24 hr 00:00: 04:59 mouth. [place] tablet 00 :00 Medical Branch cyclobenzap 2021- No 10mg Take 10 mg Univers rine 10 mg 4-20 - by mouth. ity of tablet 00:00: 00:00 [place] 00 :00 Medical Branch butalbital- 2021- No Unive rs acetaminoph 12 -15 ity of en-caff 00:00: 00:00 [place] 50-325-40 00 :00 Medical mg tablet Branch carvediloL 2020-05 Yes 25mg Take 1 Unive rs 25 mg 2-30 tablet by ity of tablet 00:00: mouth (two) Medical times Branch daily with meals. losartan 50 2020-05 Yes 50mg Take 1 Univ ers mg tablet 2-30 tablet by ity o f 00:00: mouth (two) Medical times Branch daily. carvediloL 2020-05 Yes 25mg Take 1 Unive rs 25 mg 2-30 tablet by ity of tablet 00:00: mouth (two) Medical times Branch daily with meals. losartan 50 2020-05 Yes 50mg Take 1 Univ ers mg tablet 2-30 tablet by ity o f 00:00: mouth (two) Medical times Branch daily. carvediloL 2020-05 Yes 25mg Take 1 Unive rs 25 mg 2-30 tablet by ity of tablet 00:00: mouth (two) Medical times Branch daily with meals. losartan 50 2020-05 Yes 50mg Take 1 Univ ers mg tablet 2-30 tablet by ity o f 00:00: mouth 2 (two) Medical times Branch daily. carvediloL 2020-05 Yes 25mg Take 1 Unive rs 25 mg 2-30 tablet by ity of tablet 00:00: mouth (two) Medical times Branch daily with meals. losartan 50 2020-05 Yes 50mg Take 1 Univ ers mg tablet 2-30 tablet by ity o f 00:00: mouth (two) Medical times Branch daily. carvediloL 2020-05 Yes 25mg Take 1 Unive rs 25 mg 2-30 tablet by ity of tablet 00:00: mouth (two) Medical times Branch daily with meals. losartan 50 2020-05 Yes 50mg Take 1 Univ ers mg tablet 2-30 tablet by ity o f 00:00: mouth (two) Medical times Branch daily. carvediloL 2020-05 Yes 25mg Take 1 Unive rs 25 mg 2-30 tablet by ity of tablet 00:00: mouth (two) Medical times Branch daily with meals. losartan 50 2020-05 Yes 50mg Take 1 Univ ers mg tablet 2-30 tablet by ity o f 00:00: mouth (two) Medical times Branch daily. carvediloL 2020-05 Yes 25mg Take 1 Unive rs 25 mg 2-30 tablet by ity of tablet 00:00: mouth (two) Medical times Branch daily with meals. losartan 50 2020-05 Yes 50mg Take 1 Univ ers mg tablet 2-30 tablet by ity o f 00:00: mouth (two) Medical times Branch daily. carvediloL 2020-05 Yes 25mg Take 1 Unive rs 25 mg 2-30 tablet by ity of tablet 00:00: mouth (two) Medical times Branch daily with meals. losartan 50 2020-05 Yes 50mg Take 1 Univ ers mg tablet 2-30 tablet by ity o f 00:00: mouth (two) Medical times Branch daily. carvediloL 2020-05 Yes 25mg Take 1 Unive rs 25 mg 2-30 tablet by ity of tablet 00:00: mouth (two) Medical times Branch daily with meals. losartan 50 2020-05 Yes 50mg Take 1 Univ ers mg tablet 2-30 tablet by ity o f 00:00: mouth (two) Medical times Branch daily. carvediloL 2020-05 Yes 25mg Take 1 Unive rs 25 mg 2-30 tablet by ity of tablet 00:00: mouth (two) Medical times Branch daily with meals. losartan 50 2020-05 Yes 50mg Take 1 Univ ers mg tablet 2-30 tablet by ity o f 00:00: mouth (two) Medical times Branch daily. carvediloL 2020-05 Yes 25mg Take 1 Unive rs 25 mg 2-30 tablet by ity of tablet 00:00: mouth (two) Medical times Branch daily with meals. losartan 50 2020-05 Yes 50mg Take 1 Univ ers mg tablet 2-30 tablet by ity o f 00:00: mouth (two) Medical times Branch daily. carvediloL 2020-05 Yes 25mg Take 1 Unive rs 25 mg 2-30 tablet by ity of tablet 00:00: mouth (two) Medical times Branch daily with meals. losartan 50 2020-05 Yes 50mg Take 1 Univ ers mg tablet 2-30 tablet by ity o f 00:00: mouth (two) Medical times Branch daily. FLUoxetine Yes Other 20mg Take 1 Univ ers 20 mg 4-27 depression capsule by it y of capsule 00:00: mouth daily. Medical Branch traZODone Yes Insomnia, 50mg Take 1 U nivers 50 mg 4-27 unspecified tablet by it y of tablet 00:00: type mouth at bedtime. Medical Branch LOESTRIN FE Yes Pelvic pain 1{tbl} Take 1 Univers (LOESTRIN 4-27 tablet by ity o f FE 06/01) 1 00:00: mouth [place] mg-20 mcg 00 daily. Medical (21)/75 mg Branch (7) tablet potassium Yes 1080mg Take 1 Univ ers citrate 10 4-26 tablet by ity of mEq (080 00:00: mouth [place] mg) SR 00 daily. Medical tablet Branch nadoloL 20 Yes Anxiety Please Un [facility]ushant mg tablet 4-21 disorder, take ity o f 00:00: unspecified Nadalol 40 [place] 00 type mg QAM and Medical 20 mg QPM Branch methocarbam Yes [employer] 500mg Take 1 Univers oL 4-08 [...] Immunizations Ordered Filled Immunization Date Status Comments [facility] Immunization Name Name Influenza Virus 2020-05-19 Completed Universit y of Vaccine 00:00:00 [facility] Influenza Virus 2020-05-19 Completed Universit y of Vaccine 00:00:00 [facility] Influenza Virus 2020-05-19 Completed Universit y of Vaccine 00:00:00 [facility] Influenza Virus 2020-05-19 Completed Universit y of Vaccine 00:00:00 [facility] Influenza Virus 2020-05-19 Completed Universit y of Vaccine 00:00:00 [facility] Influenza Virus 2020-05-19 Completed Universit y of Vaccine 00:00:00 [facility] Influenza Virus 2020-05-19 Completed Universit y of Vaccine 00:00:00 [facility] Influenza Virus 2020-05-19 Completed Universit y of Vaccine 00:00:00 [facility] Influenza Virus 2020-05-19 Completed Universit y of Vaccine 00:00:00 [facility] Influenza Virus 2020-05-19 Completed Universit y of Vaccine 00:00:00 [facility] Influenza Virus 2020-05-19 Completed Universit y of Vaccine 00:00:00 [facility] Influenza Virus 2020-05-19 Completed Universit y of Vaccine 00:00:00 [facility] Influenza Virus 2020-05-19 Completed Universit y of Vaccine 00:00:00 [facility] Influenza Virus 2020-05-16 Completed Universit y of Vaccine Recomb Quad 00:00:00 [place] [facility] IM, Preserv and ABX Branc h Free 18-64 YRS Influenza Virus 2020-05-16 Completed Universit y of Vaccine Recomb Quad 00:00:00 [place] [facility] IM, Preserv and ABX Branc h Free 18-64 YRS Influenza Virus 2020-05-16 Completed Universit y of Vaccine Recomb Quad 00:00:00 [place] [facility] IM, Preserv and ABX Branc h Free 18-64 YRS Influenza Virus 2020-05-16 Completed Universit y of Vaccine Recomb Quad 00:00:00 [place] [facility] IM, Preserv and ABX Branc h Free 18-64 YRS Influenza Virus 2020-05-16 Completed Universit y of Vaccine Recomb Quad 00:00:00 [place] [facility] IM, Preserv and ABX Branc h Free 18-64 YRS Influenza Virus 2020-05-16 Completed Universit y of Vaccine Recomb Quad 00:00:00 [place] [facility] IM, Preserv and ABX Branc h Free 18-64 YRS Influenza Virus 2020-05-16 Completed Universit y of Vaccine Recomb Quad 00:00:00 [place] [facility] IM, Preserv and ABX Branc h Free 18-64 YRS Influenza Virus 2020-05-16 Completed Universit y of Vaccine Recomb Quad 00:00:00 [place] [facility] IM, Preserv and ABX Branc h Free 18-64 YRS Influenza Virus 2020-05-16 Completed Universit y of Vaccine Recomb Quad 00:00:00 [place] [facility] IM, Preserv and ABX Branc h Free 18-64 YRS Influenza Virus 2020-05-16 Completed Universit y of Vaccine Recomb Quad 00:00:00 [place] [facility] IM, Preserv and ABX Branc h Free 18-64 YRS Influenza Virus 2020-05-16 Completed Universit y of Vaccine Recomb Quad 00:00:00 [place] [facility] IM, Preserv and ABX Branc h Free 18-64 YRS Influenza Virus 2020-05-16 Completed Universit y of Vaccine Recomb Quad 00:00:00 [place] [facility] IM, Preserv and ABX Branc h Free 18-64 YRS Influenza Virus 2020-05-16 Completed Universit y of Vaccine Recomb Quad 00:00:00 [place] [facility] IM, Preserv and ABX Branc h Free 18-64 YRS TDAP (ADACEL) 2019-05-21 Completed University of VACCINE 00:00:00 [facility] TDAP (ADACEL) 2019-05-21 Completed University of VACCINE 00:00:00 [facility] TDAP (ADACEL) 2019-05-21 Completed University of VACCINE 00:00:00 [facility] TDAP (ADACEL) 2019-05-21 Completed University of VACCINE 00:00:00 [facility] TDAP (ADACEL) 2019-05-21 Completed University of VACCINE 00:00:00 [facility] TDAP (ADACEL) 2019-05-21 Completed University of VACCINE 00:00:00 [facility] TDAP (ADACEL) 2019-05-21 Completed University of VACCINE 00:00:00 [facility] TDAP (ADACEL) 2019-05-21 Completed University of VACCINE 00:00:00 [facility] TDAP (ADACEL) 2019-05-21 Completed University of VACCINE 00:00:00 [facility] TDAP (ADACEL) 2019-05-21 Completed University of VACCINE 00:00:00 [facility] TDAP (ADACEL) 2019-05-21 Completed University of VACCINE 00:00:00 [facility] TDAP (ADACEL) 2019-05-21 Completed University of VACCINE 00:00:00 [facility] TDAP (ADACEL) 2019-05-21 Completed University of VACCINE 00:00:00 [facility] Influenza Virus 2019-02-06 Completed Universit y of Vaccine Quad .5 mL 00:00:00 [facility] 6+ [facility] Influenza Virus 2019-02-06 Completed Universit y of Vaccine Quad .5 mL 00:00:00 [facility] 6+ [facility] Influenza Virus 2019-02-06 Completed Universit y of Vaccine [place] .5 mL 00:00:00 [facility] 6+ MO Branch Influenza Virus 2019-02-06 Completed Universit y of Vaccine [place] .5 mL 00:00:00 [facility] 6+ [facility] Branch Influenza Virus 2019-02-06 Completed Universit y of Vaccine [place] .5 mL 00:00:00 [facility] 6+ [facility] Influenza Virus 2019-02-06 Completed Universit y of Vaccine [place] .5 mL 00:00:00 [facility] 6+ [facility] Branch Influenza Virus 2019-02-06 Completed Universit y of Vaccine [place] .5 mL 00:00:00 [facility] 6+ MO Branch Influenza Virus 2019-02-06 Completed Universit y of Vaccine [place] .5 mL 00:00:00 [facility] 6+ MO Branch Influenza Virus 2019-02-06 Completed Universit y of Vaccine Quad .5 mL 00:00:00 [facility] 6+ MO Branch Influenza Virus 2019-02-06 Completed Universit y of Vaccine [place] .5 mL 00:00:00 [facility] 6+ MO Branch Influenza Virus 2019-02-06 Completed Universit y of Vaccine Quad .5 mL 00:00:00 [facility] 6+ MO Branch Influenza Virus 2019-02-06 Completed Universit y of Vaccine [place] .5 mL 00:00:00 [facility] 6+ MO Branch Influenza Virus 2019-02-06 Completed Universit y of Vaccine Quad .5 mL 00:00:00 [facility] 6+ MO Branch Vital Signs Vital Name Observation Time Observation Value Comments Source Systolic blood 2021-11-28 13:48:00 146 mm[Hg] Univer sity of pressure [facility] Diastolic blood 2021-11-28 13:48:00 103 mm[Hg] Unive rsity of pressure [facility] Heart rate 2021-11-28 13:48:00 119 /min [facility], Txi ty [facility] Body temperature 2021-11-28 13:48:00 36.94 Irene Univ ersity of [facility] Respiratory rate 2021-11-28 13:48:00 18 /min [facility] weight 2021-11-28 13:48:00 58.968 kg Universi ty [facility] BMI 2021-11-28 13:48:00 24.56 kg/m2 Universi ty [facility] Oxygen saturation in 2021-11-28 13:48:00 99 /min University of Arterial blood by [facility] Pulse oximetry Branch Systolic blood 2021-11-25 01:00:00 130 mm[Hg] Univer sity of pressure [facility] Diastolic blood 2021-11-25 01:00:00 102 mm[Hg] Unive rsity of pressure [facility] Heart rate 2021-11-25 01:00:00 115 /min [facility] Body temperature 2021-11-25 01:00:00 37.39 Irene Univ ersity of [facility] Respiratory rate 2021-11-25 01:00:00 18 /min Univ ersity of [facility] Oxygen saturation in 2021-11-25 01:00:00 98 /min University of Arterial blood by [facility] Pulse oximetry Branch Body height 2021-11-24 23:13:00 154.9 cm [facility] Body weight 2021-11-24 23:13:00 58.968 kg [facility] BMI 2021-11-24 23:13:00 24.56 kg/m2 [facility] Systolic blood 2021-11-18 15:11:00 125 mm[Hg] Univer sity of pressure [facility] Diastolic blood 2021-11-18 15:11:00 83 mm[Hg] Unive rsity of pressure [facility] Heart rate 2021-11-18 15:11:00 106 /min [facility] Body temperature 2021-11-18 15:11:00 37 Irene Univ ersity [facility] Respiratory rate 2021-11-18 15:11:00 20 /min Univ ersity of [facility] Body height 2021-11-18 15:11:00 154.9 cm [facility] Body weight 2021-11-18 15:11:00 59.013 kg [facility] BMI 2021-11-18 15:11:00 24.58 kg/m2 [facility] Oxygen saturation in 2021-11-18 15:11:00 98 /min University of Arterial blood by [facility] Pulse oximetry Branch Systolic blood 2021-10-25 17:35:00 130 mm[Hg] Univer sity of pressure [facility] Diastolic blood 2021-10-25 17:35:00 86 mm[Hg] Unive rsity of pressure [facility] Heart rate 2021-10-25 17:33:00 108 /min [facility] Body temperature 2021-10-25 17:33:00 36.94 Irene [facility] Respiratory rate 2021-10-25 17:33:00 18 /min [facility] Body height 2021-10-25 17:33:00 154.9 cm [facility] Body weight 2021-10-25 17:33:00 60.374 kg [facility] BMI 2021-10-25 17:33:00 25.15 kg/m2 [facility] Oxygen saturation in 2021-10-25 17:33:00 98 /min [facility] Arterial blood by [facility] Pulse oximetry [place] Procedures Procedure Date / Time Performed Performing Clinician [facility] e CBC WITH DIFF 2021-11-28 15:00:00 Karon Frederick [facility] XR CHEST 2 VW 2021-11-28 14:34:00 Karon Frederick [facility] POCT TEST 2021-11-28 14:10:00 Karon Frederick [facility] LIPASE 2021-11-28 14:08:00 Karon Frederick [facility] COMP. METABOLIC PANEL 2021-11-28 14:08:00 Karon Frederick [facility] ([id number]) [facility] URINALYSIS 2021-11-28 14:08:00 Karon Frederick [facility] COVID-19 (ID NOW RAPID 2021-11-28 14:08:[address] [facility] TESTING) [facility] CONSENT/REFUSAL FOR 2021-11-28 13:46:30 [facility], [facility] Medical Branch TREATMENT CT LUMBAR SPINE WO 2021-11-24 23:58:56 Kaycee Valadez [facility] CONTRAST [facility] CT PELVIS WO CONTRAST 2021-11-24 23:58:56 Kaycee Valadez Univer sity [facility] CT THORACIC SPINE WO 2021-11-24 23:58:56 [facility] 2021-11-24 23:20:[address] [facility], Txi ty [facility] CONSENT/REFUSAL FOR 2021-11-24 23:00:45 Doctor Unassigned, [facility] Name [facility] Branch TREATMENT XR CLAVICLE COMP RIGHT 2021-11-18 15:50:29 Andressa Boyd [facility] POCT MOLECULAR FLU 2021-10-25 17:49:00 Andressa Boyd [facility] Plan of Care Planned Activity Planned Date Details Comments Source Future Scheduled 2029-05-21 DTaP,Tdap,and Td [facility] Test 00:00:00 Vaccines (2 - Td) Medical Br anch [code = DTaP,Tdap,and Td Vaccines (2 - Td)] Future Scheduled 2021-09-06 Depression screening [facility] Test 00:00:00 (procedure) [code = Medical Branch 576272475] Future Scheduled 2016-02-19 Screening for [facility] Test 00:00:00 malignant neoplasm Medical B ranch of cervix (procedure) [code = 634126777] Future Scheduled 2013 Hepatitis C [facility] Test 00:00:00 screening Medical Branch (procedure) [code = 826276135] Future Scheduled 2011 SARS-CoV-2 [facility] Test 00:00:00 (COVID-19) Vaccine Medical B ranch (1) [code = SARS-CoV-2 (COVID-19) Vaccine (1)] Future Scheduled 2006 HPV VACCINES (1 - Univer [facility] Test 00:00:00 2-dose series) [code Medical Branch = HPV VACCINES (1 - 2-dose series)] Encounters Start End Encounter Admission Attending Care Care Encounter Source Date/Time Date/Time Type Type Clinicians Facility Department ID 2021-12-12 2021-12-12 Outpatient Farzana CARNES [facility] [id number] Univers 13:30:00 13:30:00 TETO [id number] [facility] 2021-12-11 2021-12-11 Outpatient R BRADFORD, [facility] [id number] Univers 16:15:00 16:15:00 SANTIAGO [id number] ity [facility] 2021-12-11 2021-12-11 Outpatient R BRADFORD, [facility] [id number] Univers 16:15:00 16:15:00 SANTIAGO [facility] 2021-12-05 2021-12-05 Outpatient R LYSSA, [facility] [id number] Univers 14:15:00 14:15:00 ROMULO [id number] [facility] 2021-12-05 2021-12-05 Outpatient R AVANILISAJESSICA, [facility] [id number] Univers 14:15:00 14:15:00 ROMULO [facility] 2021-11-28 2021-11-28 [facility] 1.2.840.114 [id number] Univers 08:49:00 11:02:00 Karoneveline LAWSON [id number] i ty of [place] 4.2.7.2.686 [facility] [place] [id number] [address] 2021-11-28 2021-11-28 Emergency X FREDERICK, [facility] ERT [id number] Univers 08:49:00 11:02:00 KARON [facility] 2021-11-24 2021-11-24 Emergency X ALLYSON, K [facility] ERT [id number] Univers 18:14:00 [facility]:04:[facility] 2021-11-24 2021-11-24 Emergency Allyson, K [facility] 1.2.840.114 [id number] Univers 18:14:00 21:04:00 Perla LAWSON [id number] i ty of [place] 4.2.7.2.686 [facility] [place] [id number] [address] 2021-11-24 2021-11-24 Telephone Akinsigracie, [facility] 1.2.840.114 [id number] Univers 00:00:00 00:00:00 Shelby 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 350.1.13.10 ity of [facility] 4.2.7.2.686 Martin as MATERNAL [phone] Med ical & CHILD 107 [facility] 2021-11-20 2021-11-20 [facility] 1.2.840.114 [id number] Univers 00:00:00 00:00:00 Secure Msg Kendal [facility] [id number] ity of [place] 4.2.7.2.686 Martin as TALYA?BLEA [phone] [facility] [address] [place] MEDICAL OFFICE [facility] 2021-11-19 2021-11-19 Letter JORDAN Santacruz 1.2.840.114 [id number] Univers 00:00:00 00:00:00 (Out) Leslie ARCE 350.1.13.10 it y of [facility] 4.2.7.2.686 Martin as [phone] [address] 2021-11-18 2021-11-18 [facility] [id number] Univers 10:41:40 23:59:00 Encounter [facility] [id number] ity of [place] 4.2.7.2.686 Martin as TALYA?BLEA [phone] [facility] [address] [facility] OFFICE [facility] 2021-11-18 2021-11-18 Outpatient R [facility] [id number] Univers 10:20:00 10:53:20 ANDRESSA ity o f [facility] 2021-11-18 2021-11-18 Urgent [facility] 1.2.840.114 [id number] Univers 10:20:00 10:53:20 Care [facility] [id number] i ty of [place] 4.2.7.2.686 Martin as TALYA?BLEA [id number] Sd dical [facility] [address] [facility] OFFICE [facility] 2021-11-18 2021-11-18 Outpatient R [facility] [id number] Univers 10:20:00 10:20:00 [id number] ity [facility] 2021-11-09 2021-11-09 Outpatient R APURVA [facility] [id number] Univers 10:30:00 10:30:00 DESIREE ity [facility] 2021-10-25 2021-10-25 Urgent Ileana Medrano [facility] 1.2.840.114 [id number] Univers 13:20:00 13:20:00 Care Lopez Boydy HEALTH 350.1.13.10 ity of [place] 4.2.7.2.686 Martin as TALYA?BLEA [phone] [facility] [address] [place] MEDICAL OFFICE BUILDING 2021-10-25 2021-10-25 Patient Juan [facility] 1.2.840.114 [id number] Univers 00:00:00 00:00:00 Secure Msg Ca HEALTH 350.1.13.10 ity of [place] 4.2.7.2.686 Martin as TALYA?BLEA [phone] [facility] [address] [place] MEDICAL OFFICE [facility] 2021-10-25 2021-10-25 Telephone Juan [facility] 1.2.556.745 [id number] Univers 00:00:00 00:00:00 Ca HEALTH 350.1.13.10 it y of [place] 4.2.7.2.686 Martin as TALYA?BLEA [phone] [facility] [address] [place] MEDICAL OFFICE [facility] 2021-10-25 2021-10-25 Telephone Provider, [facility] 1.2.840.114 [id number] Univers 00:00:00 00:00:00 Ang Db HEALTH 350.1.13.10 it y of Urgent Care [place] 4.2.7.2.686 [place] TALYA?BLEA [phone] [facility] [address] [place] MEDICAL OFFICE BUILDING 2021-10-25 2021-10-25 Telephone Nurse, Filippo [facility] 1.2.840.114 [id number] Univers 00:00:00 00:00:00 Db Urgent HEALTH 350.1.13.10 ity of Care [place] 4.2.7.2.686 Martin as TALYA?BLEA [phone] [facility] [address] [place] MEDICAL OFFICE BUILDING 2021-10-24 2021-10-24 Outpatient R LYSSA [facility] [id number] Univers 10:15:00 10:15:00 ROMULO ankush [facility] 2020-11-10 2020-11-10 Urgent Alissa Collins [facility] 1.2.840.114 [id number] 18:42:46 19:53:43 Care Health 350.1.13.10 [place] 4.2.7.2.686 Professio [phone] nal [address] 2020-10-31 2020-10-31 Emergency Kaycee Valadez [facility] 1.2.840.114 [id number] 18:52:00 22:15:00 Perla Lawson 350.1.13.10 [place] 4.2.7.2.686 [place] [phone] [id number] 2020-10-31 2020-10-31 Orders Doctor JORDAN 1.2.840.114 [id number] 00:00:00 00:00:00 Only Unassigned, YAZMIN 350.1.13.10 [place] [facility] 4.2.7.2.686 [id number] 009 2020-10-20 2020-10-20 Emergency Kaycee Valadez [facility] 1.2.840.114 [id number] 14:02:00 17:13:00 Perla Lawson 350.1.13.10 [place] 4.2.7.2.686 [place] [id number] 084 2020-10-14 2020-10-14 Hospital Shelia Quiñonez [facility] 1.2.840.114 [id number] 10:00:00 23:59:00 Encounter Jm Lawson 350.1.13.10 [place] 4.2.7.2.686 [place] [id number] 2020-10-09 2020-10-09 Emergency Krystle [facility] [id number] 12:00:00 15:57:00 Anna Lawson 350.1.13.10 [place] 4.2.7.2.686 [place] [id number] 2020-10-06 2020-10-06 Office Shelia Quiñonez [facility] [id number] 08:53:00 09:46:44 Visit Jm Lawson 350.1.13.10 [place] 4.2.7.2.686 [facility] [phone] [address] 2020-03-04 2020-03-04 RefLopez Centeno [facility] 1.2.840.114 [id number] 00:00:00 00:00:00 MULTISPEC 350.1.13.10 [place] 4.2.7.2.686 [place] [phone] [facility] Results Test Description Test Time Test Comments Results Result Comments Source CBC WITH DIFF 2021-11-28 15:09:20 Test Item Value Reference Range Interpretation Comme nts WBC (test code = 6690-2) See_Comment [A utomated message] The system which ge nerated this result transmit renata reference range: 4.30 - 1 1.10 10*3/?L. The reference r david was not used to interpr et this result as normal/abnor mal. RBC (test code = 789-8) See_Comment [Au tomated message] The system which ge nerated this result transmit renata reference range: 3.93 - 5 .25 10*6/?L. The reference r david was not used to interpr et this result as normal/abnor mal. HGB (test code = 718-7) 13.6 g/dL 11.6-15 HCT (test code = 4544-3) 40.8 % 35.7-45.2 MCV (test code = 787-2) 86.6 fL 80.6-95.5 MCH (test code = 785-6) 28.9 pg 25.9-32.8 MCHC (test code = 786-4) 33.3 g/dL 31.6-35.1 RDW-SD (test code = 85895-9) 40.7 fL 39-49.9 RDW-CV (test code = 788-0) 13.0 % 12-15.5 PLT (test code = 777-3) See_Comment [Au tomated message] The system which ge nerated this result transmit renata reference range: 166 - 35 8 10*3/?L. The reference range was not used to interpret th is result as normal/abnormal . MPV (test code = 49546-1) 9.4 fL 9.5-12.9 L NRBC/100 WBC (test code = See_Comment [ Automated message] The 6408194488) system which [employer] nerated this result transmit renata reference range: 0.0 - 10 .0 /100 WBCs. The reference r david was not used to interpr et this result as normal/abnor mal. NRBC x10^3 (test code = See_Comment [Au tomated message] The 6181643217) system which [employer] nerated this result transmit renata reference range: 10*3/?L. The reference range was not u sed to interpret this result as normal/abnormal . GRAN MAT (NEUT) % (test code 68.4 % = 770-8) IMM GRAN % (test code = 0.40 % 5983059724) LYMPH % (test code = 736-9) 23.5 % MONO % (test code = 5905-5) 4.1 % EOS % (test code = 713-8) 3.2 % BASO % (test code = 706-2) 0.4 % GRAN MAT x10^3(ANC) (test 5.40 10*3/uL 1.88-7.09 code = 5348861733) IMM GRAN x10^3 (test code = 0.03 10*3/uL 0-0.06 3188014190) LYMPH x10^3 (test code = 1.85 10*3/uL 1.32-3.29 731-0) MONO x10^3 (test code = 0.32 10*3/uL 0.33-0.92 L 742-7) EOS x10^3 (test code = 0.25 10*3/uL 0.03-0.39 711-2) BASO x10^3 (test code = 0.03 10*3/uL 0.01-0.07 704-7) Lab Interpretation (test Abnormal code = 58425-3) [facility]. METABOLIC PANEL (95952)2021-11-28 14:38:36 Test Item Value Reference Range Interpretation Comments NA (test code = 141 mmol/L 135-145 8735576282) K (test code = 4.0 mmol/L 3.5-5 5590998098) CL (test code = 105 mmol/L 98-108 8069588699) CO2 TOTAL (test code = 24 mmol/L 23-31 3612196323) AGAP (test code = 2-16 2240128515) BUN (test code = 9 mg/dL 7-23 6440562534) GLUCOSE (test code = 100 mg/dL 70-110 4364605841) CREATININE (test code = 0.69 mg/dL 0.5-1.04 2649773639) TOTAL BILI (test code = 0.9 mg/dL 0.1-1.8 0706028137) CALCIUM (test code = 9.5 mg/dL 8.6-10.6 7143835190) T PROTEIN (test code = 8.5 g/dL 6.3-8.2 H 4210860535) ALBUMIN (test code = 4.9 g/dL 3.5-5 9476872823) ALK PHOS (test code = 119 U/L 34-122 5488039076) ALTv (test code = 27 U/L 5-35 1742-6) AST(SGOT) (test code = 34 U/L 13-40 1899144925) eGFR (test code = mL/min/1.73m2 8554915636) WESLEY (test code = WESLEY) Association of Glomerular Filtration Rate (GFR) and Staging of Kidney Disease* + --+ --+ ------+| GFR (mL/min/1.73 m2) ?| With Kidney Damage ?| ?Without Kidney Damage+ --------+ --------+ +| ?>90 ?| ?Stage one ?| ? Normal ?+ ---+ ---+ -------+| ?60-89 ?| ?Stage two ?| ? Decreased GFR ? + --+ --+ ------+| ?30-59 ?| ?Stage three ?| ? Stage three ? + --+ --+ ------+| ?15-29 ?| ?Stage four ? | ? Stage four ?+ ---+ ---+ -------+| ?<15 (or dialysis) ? ?| ?Stage five ? | ? Stage five ?+ ---+ ---+ -------+ *Each stage assumes the associated GFR level has been in effect for at least three months. ?Stages 1 to 5, with or without kidney disease, indicate chronic kidney disease. Notes: Determination of stages one and two (with eGFR >59mL/min/1.73 m2) requires estimation of kidney damage for at least three months as defined by structural or functional abnormalities of the kidney, manifested by either:Pathological abnormalities or Markers of kidney damage (including abnormalities in the composition of the blood or urine or abnormalities in imaging tests). Lab Interpretation Abnormal (test code = 55614-0) [facility]16 Test Item Value Reference Range Interpretation Comments LIPASE (test code = 2449755272) 24 U/L 0-220 Lab Interpretation (test code = Normal 01155-9) [facility] [id number] 14:10:00 Test Item Value Reference Range Interpretation Comments POCT PREG (test code = 1605) negative On board controls acceptable with present C Line (test code = 3574) POCT PREG LOT # (test code = 3575) [id number] POCT PREG TEST DATE (test code = 3576) Lab Interpretation (test code = Normal 64692-2) [facility] [id number] 23:20:00 Test Item Value Reference Range Interpretation Comments On board controls acceptable with Present C Line (test code = 3574) POCT PREG LOT # (test code = 3575) [id number] POCT PREG TEST DATE (test 03/12/2023 code = 3576) POCT PREG (test code = 1605) Negative Lab Interpretation (test code = Normal 60418-2) [facility] MOLECULAR [id number] 17:55:45 Test Item Value Reference Range Interpretation Comments POCT Molecular FluA (test code = Positive Negative A 57161-3) Lab Interpretation (test code = Abnormal 70163-7) [facility]"
[2021-12-05] MEDS ORDERED: NA CHLORIDE 0.9% 1,000 ML ONE ×2 (18:42→19:54)
[2021-12-05] MEDS ORDERED: dexAMETHasone 4 MG/ML VIAL ONE (19:53)
[2021-12-05] MEDS ORDERED: DIPHENHYDRAMINE 50 MG/ML VIAL ONE (19:53)
[2021-12-05] MEDS ORDERED: KETOROLAC 30 MG/ML INJ ONE (19:54)
[2021-12-05] MEDS ORDERED: ONDANSETRON 4 MG/2 ML VIAL ONE (19:54)
[2021-12-05] MEDS ORDERED: DIAZEPAM 10 MG/2 ML INJ SYRINGE ONE ×2 (21:04→21:44)
--- NOTE | 2021-12-05 21:15 | EDPHYS ---
Physician Documentation [facility] Name: Natanael Dyson Age: 26 yrs Sex: Female : 1995 Arrival Date: 12/05/2021 Time: 18:38 Bed 9 Private MD: ED Physician Miquel Rios HPI: 12/05 19:19 This 26 yrs old Female presents to ER via Ambulatory with complaints of Headache, pm1 Nausea. 19:19 The patient complains of pain to the right side of head. The patient describes the pm1 headache as aching, pounding. Onset: The symptoms/episode began/occurred today. Associated signs and symptoms: Pertinent positives: nausea, Pertinent negatives: fever, vomiting. Severity of symptoms: in the emergency department the pain is unchanged. Headache History: The patient has had previous headaches and this one is similar to previous episodes. The symptoms are alleviated by Darkened room, quiet, the symptoms are aggravated by lights, noise. The patient has not experienced similar symptoms in the past. The patient has not recently seen a physician. patient reports no improvement in her headache with her depakote. 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 - Social history:: Smoking status: Patient denies any tobacco usage or history of. ROS: 19:19 Constitutional: Negative for fever, chills, and weight loss, Cardiovascular: Negative pm1 for chest pain, palpitations, and edema, Respiratory: Negative for shortness of breath, cough, wheezing, and pleuritic chest pain, MS/Extremity: Negative for injury and deformity, Skin: Negative for injury, rash, and discoloration. 19:19 Abdomen/GI: Positive for nausea, Negative for abdominal pain, vomiting. 19:19 Neuro: Positive for headache, Negative for numbness, tingling, weakness. 19:19 All other systems are negative. Exam: 19:19 Constitutional: This is a well developed, well nourished patient who is awake, alert, pm1 and in no acute distress. Head/Face: Normocephalic, atraumatic. 19:19 Skin: Warm, dry with normal turgor. Normal color with no rashes, no lesions, and no evidence of cellulitis. MS/ Extremity: Pulses equal, no cyanosis. Neurovascular intact. Full, normal range of motion. 19:19 Eyes: Exam is negative for acute changes, Periorbital structures: appear normal, Pupils: no acute changes, Extraocular movements: intact throughout. 19:19 ENT: Exam is negative for acute changes, Mouth: no acute changes, Lips: normal, moist, Oral mucosa: normal, pink and intact, moist. 19:19 Cardiovascular: Exam negative for acute changes, Rate: normal, Rhythm: regular, Pulses: no pulse deficits are appreciated. 19:19 Respiratory: Exam negative for acute changes, respiratory distress, shortness of breath. 19:19 Neuro: Exam negative for acute changes, Orientation: is normal, Mentation: is normal, Cranial nerves: CN II- XII are normal as tested, Motor: is normal, moves all fours, Sensation: no obvious gross deficits. Vital Signs: 18:43 BP 138 / 93; Pulse 108; Resp 16; Temp 98.6; Pulse Ox 98% on R/A; Weight 58.97 kg; hb Height 5 ft. 1 in. (154.94 cm); Pain 8/10; 21:41 BP 118 / 89; Pulse 76; Resp 18; Pulse Ox 100% on R/A; bh1 18:43 Body Mass Index 24.56 (58.97 kg, 154.94 cm) hb MDM: 19:14 Patient medically screened. pm1 21:13 Data reviewed: vital signs. Data interpreted: Pulse oximetry: on room air is 98 %. pm1 Interpretation: normal. 21:13 Counseling: I had a detailed discussion with the patient and/or guardian regarding: the pm1 historical points, exam findings, and any diagnostic results supporting the discharge/admit diagnosis, the need for outpatient follow up, a neurologist, to return to the emergency department if symptoms worsen or persist or if there are any questions or concerns that arise at home. 21:33 ED course: Patient reports pain improved to 5/10 but would like more medications for pm1 the pain. Will give additional Valium since it appeared to work. 07/26 19:19 Order name: IV Saline Lock; Complete Time: 20:29 pm1 Administered Medications: 20:29 Drug: Benadryl (diphenhydrAMINE) 12.5 mg Route: IVP; Site: left wrist; 1 21:42 Follow up: Response: No adverse reaction 1 20:29 Drug: Ketorolac 30 mg Route: IVP; Site: left wrist; bh1 21:42 Follow up: Response: No adverse reaction 1 20:29 Drug: Decadron - Dexamethasone 10 mg Route: IVP; Site: left wrist; bh1 21:42 Follow up: Response: No adverse reaction [facility] 20:29 Drug: NS 0.9% 1000 ml Route: IV; Rate: 1000 ml; Site: left wrist; bh1 21:42 Follow up: IV Status: Completed infusion; IV Intake: 1000ml [facility] 20:30 Drug: Zofran (Ondansetron) 4 mg Route: IVP; Site: left wrist; bh1 21:41 Follow up: Response: No adverse reaction 1 21:00 Drug: Valium (diazepam) 5 mg Route: IVP; Site: left hand; kd3 21:41 Follow up: Response: No adverse reaction 1 21:44 Drug: Valium (diazepam) 2 mg Route: IVP; Site: left hand; kd3 21:45 Follow up: Response: No adverse reaction kd3 Disposition: 23:46 Co-signature as Attending Physician, Miquel Rios MD I agree with the assessment and kdr plan of care. Disposition Summary: 12/05/21 21:14 Discharge Ordered Location: Home pm1 Problem: new pm1 Symptoms: have improved pm1 Condition: Stable pm1 Diagnosis - Headache pm1 Followup: pm1 - With: Emergency Department - When: As needed - Reason: Worsening of condition Followup: pm1 - With: Private Physician - When: 2 - 3 days - Reason: Recheck today's complaints, Continuance of care, Re-evaluation by your physician Discharge Instructions: - Discharge Summary Sheet pm1 - Migraine Headache pm1 Forms: - Medication Reconciliation Form pm1 - Thank You Letter pm1 - Antibiotic Education pm1 - Prescription Opioid Use pm1 Signatures: Miquel Rios MD MD kdr Marinas, Patrick, NP BEHAVIOR ANALYST pm1 Judi Rich RN RN hb Juany Santiago, RN RN kd3 Miley Lancaster RN RN bh1 Corrections: (The following items were deleted from the chart) 18:47 18:45 Allergies: Compazine; hb hb 18:47 18:45 Allergies: Haldol; hb hb 18:47 18:45 Allergies: Latex, Natural Rubber; hb hb 18:47 18:45 Allergies: Reglan; hb hb 18:47 18:45 Home Meds: Depakote ER Oral; hb hb 18:47 18:45 Home Meds: losartan oral; hb hb 18:47 18:45 PMHx: Asthma; hb hb 18:47 18:45 PMHx: Hypertensive disorder; hb hb 18:47 18:45 PMHx: Kidney stones; hb hb 18:47 18:45 PMHx: Migraines; hb hb 18:47 18:45 PSHx: None; hb hb
--- NOTE | 2021-12-05 21:15 | ER ---
Nurse's Notes [facility] Name: Natanael Dyson Age: 26 yrs Sex: Female : 1995 Arrival Date: 12/05/2021 Time: 18:38 Bed 9 Private MD: Diagnosis: Headache Presentation: 12/05 18:43 Chief complaint: Headache x 4 days. N/V x 2 days. Hx of migraine, feels similar. Not hb tolerating fluids/PO meds. Coronavirus screen: At this time, the client does not indicate any symptoms associated with coronavirus-19. Ebola Screen: No symptoms or risks identified at this time. Initial Sepsis Screen: Does the patient meet any 2 criteria? No. Patient's initial sepsis screen is negative. Does the patient have a suspected source of infection? No. Patient's initial sepsis screen is negative. Risk Assessment: Do you want to hurt yourself or someone else? Patient reports no desire to harm self or others. Onset of symptoms was December 01, 2021. 18:43 Method Of Arrival: Ambulatory hb 18:43 Acuity: THIERNO 3 hb Triage Assessment: 21:44 Headache History: The patient has had previous headaches and this one is different than kd3 previous episodes. General: Appears in no apparent distress. Behavior is calm, cooperative. Pain: Pain currently is 4 out of 10 on a pain scale. Pain began gradually, Also complains of nausea. Neuro: Level of Consciousness is awake, alert, obeys commands, Oriented to person, place, time, situation. Respiratory: Airway is patent Trachea midline Respiratory effort is even, unlabored, Respiratory pattern is regular, symmetrical. 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 - Social history:: Smoking status: Patient denies any tobacco usage or history of. Screenin:11 Abuse screen: Denies threats or abuse. Nutritional screening: No deficits noted. [facility] Tuberculosis screening: No symptoms or risk factors identified. Fall Risk None identified. Assessment: 19:11 Pain: Complains of pain in head. Neuro: No deficits noted. 1 Vital Signs: 18:43 BP 138 / 93; Pulse 108; Resp 16; Temp 98.6; Pulse Ox 98% on R/A; Weight 58.97 kg; hb Height 5 ft. 1 in. (154.94 cm); Pain 8/10; 21:41 BP 118 / 89; Pulse 76; Resp 18; Pulse Ox 100% on R/A; bh1 18:43 Body Mass Index 24.56 (58.97 kg, 154.94 cm) hb ED Course: 18:38 Patient arrived in ED. am2 18:45 Triage completed. hb 18:45 Arm band placed on. hb 19:11 Miley Lancaster, ROSEY is Primary Nurse. bh1 19:11 Allergy band placed. bh1 19:11 No provider procedures requiring assistance completed. bh1 19:14 Destin Davis NP is PHCP. pm1 19:14 Miquel Rios MD is Attending Physician. pm1 19:57 Missed attempt(s): 20 gauge in right wrist. forearm. bh1 20:25 Inserted saline lock: 22 gauge in left wrist, using aseptic technique. bh1 21:49 IV discontinued, intact, bleeding controlled, No redness/swelling at site. Pressure kd3 dressing applied. Administered Medications: 20:29 Drug: Benadryl (diphenhydrAMINE) 12.5 mg Route: IVP; Site: left wrist; 1 21:42 Follow up: Response: No adverse reaction [facility] 20:29 Drug: Ketorolac 30 mg Route: IVP; Site: left wrist; 1 21:42 Follow up: Response: No adverse reaction 1 20:29 Drug: Decadron - Dexamethasone 10 mg Route: IVP; Site: left wrist; bh1 21:42 Follow up: Response: No adverse reaction [facility] 20:29 Drug: NS 0.9% 1000 ml Route: IV; Rate: 1000 ml; Site: left wrist; bh1 21:42 Follow up: IV Status: Completed infusion; IV Intake: 1000ml [facility] 20:30 Drug: Zofran (Ondansetron) 4 mg Route: IVP; Site: left wrist; 1 21:41 Follow up: Response: No adverse reaction bh1 21:00 Drug: Valium (diazepam) 5 mg Route: IVP; Site: left hand; kd3 21:41 Follow up: Response: No adverse reaction 1 21:44 Drug: Valium (diazepam) 2 mg Route: IVP; Site: left hand; kd3 21:45 Follow up: Response: No adverse reaction 3 Medication: 19:11 VIS not applicable for this client. 1 Intake: 21:42 IV: 1000ml; Total: 1000ml. 1 Outcome: 21:14 Discharge ordered by . pm1 21:45 Discharged to home with family. kd3 21:45 Condition: stable 21:45 Discharge instructions given to patient, family, Instructed on discharge instructions, follow up and referral plans. Demonstrated understanding of instructions, follow-up care. 21:49 Patient left the ED. kd3 Signatures: Destin Davis NP COLLAR STARCHER pm1 Judi Rich RN RN Ileana Suarez 2 Juany Santiago RN RN kd3 Miley Lancaster RN RN 1 Corrections: (The following items were deleted from the chart) 18:47 18:45 Allergies: Compazine; hb hb 18:47 18:45 Allergies: Haldol; hb hb 18:47 18:45 Allergies: Latex, Natural Rubber; hb hb 18:47 18:45 Allergies: Reglan; hb hb 18:47 18:45 Home Meds: Depakote ER Oral; hb hb 18:47 18:45 Home Meds: losartan oral; hb hb 18:47 18:45 PMHx: Asthma; hb hb 18:47 18:45 PMHx: Hypertensive disorder; hb hb 18:47 18:45 PMHx: Kidney stones; hb hb 18:47 18:45 PMHx: Migraines; hb hb 18:47 18:45 PSHx: None; hb hb 18:48 18:43 Chief complaint: Headache x 4 days. N/V x 2 days. Hx of migraine, feels similar. hb hb
[2021-12-05 21:55] VITALS: TEMP 98.6
[2021-12-05 21:56] VITALS: BP 118/89; O2SAT 100
== END 2021-12-05 21:49 | disposition home or self-care (01) ==
LOC: ER 18:35
DX: R51.9 Headache, unspecified (principal); R11.0 Nausea; I10 Essential (primary) hypertension
CPT/HCPCS: J1100; J1200; J3360 ×2; J7030 ×2; J2405; 99283

== ENCOUNTER 2021-12-24 09:24 | Emergency (ER) | payer OTHER ==
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
--- NOTE | 2021-12-24 10:12 | RAD REPORT ---
EXAM DESCRIPTION: CT - Ct Stroke Brain Wo Cont - 12/24/2021 9:59 am CLINICAL HISTORY: Headache Headache, drowsiness, CVA symptomology COMPARISON: Head Brain Wo Cont dated 08/22/2021; Head Brain Wo Cont dated 07/22/2021 TECHNIQUE: All CT scans are performed using dose optimization technique as appropriate and may inclu de automated exposure control or mA/KV adjustment according to patient size. FINDINGS: No intracranial hemorrhage, hydrocephalus or extra-axial fluid collection.No areas of brai n edema or evidence of midline shift. The paranasal sinuses and mastoids are clear. The calvarium is intact. IMPRESSION: No acute intracranial abnormality. The findings were discussed with Dr Estrella in the ER on 12/24/2021 at 10:06 a.m. by telephone.
--- NOTE | 2021-12-24 10:38 | RAD REPORT ---
EXAM DESCRIPTION: RAD - Chest Single View - 12/24/2021 10:32 am CLINICAL HISTORY: COUGH Chest pain. COMPARISON: Chest Single View dated 08/13/2020; Chest Single View dated 05/27/2020 FINDINGS: Portable technique limits examination quality. The lungs are grossly clear. The heart is normal in size. No displaced fractures. IMPRESSION: No acute intrathoracic process suspected.
[2021-12-24 10:52] LABS: Absolute Lymphocytes (CBC) 1.1 K/uL (0.7-4.9); Hematocrit 42.6 % (36.0-45.0); Lymphocytes % 12.9 % (15.3-44.8); MCV 86.5 fL (80-100); MPV 8.1 fL (7.6-11.3); RBC Red Blood Cell Count 4.92 M/uL (3.86-4.86)
[2021-12-24 10:57] LABS: Protime INR 1.02
[2021-12-24 11:14] LABS: Urine Blood Trace-lysed (Negative); Urine Glucose Negative (Negative); Urine Protein Negative (Negative)
[2021-12-24 11:16] LABS: Albumin 4.6 g/dL (3.4-5.0); Bilirubin Direct 0.1 mg/dL (0-0.2); Bilirubin Total 0.7 mg/dL (0.2-1.0); Magnesium 2.1 mg/dL (1.8-2.4); Potassium 3.8 mmol/L (3.5-5.1); Protein, Total 8.5 g/dL (6.4-8.2); Troponin High Sensitivity 3.5 pg/mL (<58.9)
[2021-12-24] MEDS ORDERED: DIPHENHYDRAMINE 50 MG/ML VIAL ONE (11:18)
[2021-12-24] MEDS ORDERED: ONDANSETRON 4 MG/2 ML VIAL ONE ×2 (11:19→13:50)
[2021-12-24] MEDS ORDERED: NA CHLORIDE 0.9% 1,000 ML ONE (11:19)
[2021-12-24] MEDS ORDERED: FOLIC ACID 5 MG/ML VIAL ONE (11:20)
--- NOTE | 2021-12-24 11:27 | RAD REPORT ---
EXAM DESCRIPTION: CT - Head angio - 12/24/2021 11:00 am CLINICAL HISTORY: Headache, sudden, severe COMPARISON: Ct Stroke Brain Wo Cont dated 12/24/2021; Head Brain Wo Cont dated 08/22/2021 TECHNIQUE: CT angiography of the head was performed with MIPs. All CT scans are performed using dose optimization technique as appropriate and may include automated exposure control or mA/KV adjustment according to patient size. FINDINGS: No evidence of aneurysm is detected. No flow-limiting stenosis or vascular malformation id entified. Antegrade flow is seen in the vertebral arteries. The vertebral arteries are codominant. The visualized dural venous sinuses are patent. IMPRESSION: No significant flow abnormality is detected.
--- NOTE | 2021-12-24 11:28 | RAD REPORT ---
EXAM DESCRIPTION: CT - Neck Angio - 12/24/2021 10:59 am CLINICAL HISTORY: Headache COMPARISON: Neck Angio dated 05/10/2020; Ct Stroke Brain Wo Cont dated 12/24/2021 TECHNIQUE: CT angiography of the neck vessels was performed with MIPs. All CT scans are performed using dose optimization technique as appropriate and may include automated exposure control or mA/KV adjustment according to patient size. FINDINGS: A left aortic arch is identified with normal three vessel configuration of the great vesse ls. No significant flow abnormality is seen of the common carotid bilaterally. No significant stenosis is identified involving the cervical segments of both internal carotid arteri es. Normal flow is seen within both vertebral arteries. IMPRESSION: No significant flow abnormality of the neck vessels is identified.
[2021-12-24] MEDS ORDERED: KETOROLAC 30 MG/ML INJ ONE (12:24)
[2021-12-24] MEDS ORDERED: HYDROMORPHONE HCL 1 MG/ML INJ ONE (12:24)
[2021-12-24] MEDS ORDERED: PROMETHAZINE INJ 25 MG/ML AMP ONE (13:44)
[2021-12-24] MEDS ORDERED: HYDROMORPHONE HCL 0.5 MG/0.5 ML INJ ONE ×2 (13:50→15:15)
--- NOTE | 2021-12-24 15:05 | ER ---
Nurse's Notes [facility] Name: Natanael Dyson Age: 26 yrs Sex: Female : 1995 Arrival Date: 12/24/2021 Time: 09:24 Bed 16 Private MD: Diagnosis: Headache;Hemiplegic migraine, not intractable, without status migrainosus Presentation: 12/24 09:44 Chief complaint: Patient states: "It's started with a bad migraine, but now my eyes are ss getting a little blurry and spotted." Pt states now she is experiencing some tingling in RUE which began an hour ago. Woke up with a migraine this morning with N/V at 0400. Coronavirus screen: Client denies travel out of the [place] in the last 14 days. Ebola Screen: Patient denies exposure to infectious person. Patient denies travel to an Ebola-affected area in the 21 days before illness onset. Initial Sepsis Screen: Does the patient meet any 2 criteria? No. Patient's initial sepsis screen is negative. Does the patient have a suspected source of infection? No. Patient's initial sepsis screen is negative. Risk Assessment: Do you want to hurt yourself or someone else? Patient reports no desire to harm self or others. Onset of symptoms was December 24, 2021 at 04:00. 09:44 Method Of Arrival: Ambulatory ss 09:44 Acuity: THIERNO 3 ss Historical: - Allergies: 09:47 Reglan; ss 09:47 Compazine; ss - PMHx: 09:47 Hypertension; Migraine; ss - PSHx: 09:47 tubal ligation; ss - Immunization history:: Client reports having NOT received the Covid vaccine. - Social history:: Smoking status: Patient denies any tobacco usage or history of. Screenin:01 Abuse screen: Denies threats or abuse. Denies injuries from another. Nutritional ss screening: No deficits noted. Tuberculosis screening: Never had TB. 12:08 Fall Risk None identified. hb Assessment: 09:52 Reassessment: Dr. Estrella at bedside assessing patient. Pt confirmed with Dr. Estrella ss that tingling in fact started at 0400 this am. 09:56 Reassessment: Pt on CT table now. ss 09:59 Reassessment: Pt now back in room. ss 13:06 Reassessment: biochemistry technician will be here at 1430 to obtain MRI. 15:03 Reassessment: Patient appears in no apparent distress at this time. Patient and/or hb family updated on plan of care and expected duration. Pain level reassessed. Vital Signs: 09:44 BP 131 / 94; Pulse 92; Resp 14; Temp 97.8(TE); Pulse Ox 100% on R/A; Weight 58.97 kg; ss Height 5 ft. 1 in. (154.94 cm); Pain 6/10; 11:34 BP 134 / 91; Pulse 100; Resp 18; Pulse Ox 100% on NC; tm3 12:07 BP 134 / 87; Pulse 112; Resp 17; Pulse Ox 100% ; Pain 8/10; hb 14:06 BP 119 / 90; Pulse 101; Resp 15; Pulse Ox 99% ; hb 09:44 Body Mass Index 24.56 (58.97 kg, 154.94 cm) ss [place] Coma Score: 10:49 Eye Response: spontaneous(4). Verbal Response: oriented(5). Motor Response: obeys rudolph commands(6). Total: 15. NIH Stroke Scale Scores: 10:46 NIHSS Score: 1 [facility] ED Course: 09:24 Patient arrived in ED. mr 09:31 Kolton Nazario PA is PHCP. [facility] 09:31 Justin Estrella MD is Attending Physician. [facility] 09:47 Triage completed. ss 09:47 Arm band placed on right wrist. ss 09:56 Justin Estrella MD is Attending Physician. [facility] 10:01 CT-STROKE BRAIN W/O CONTRAST CT In Process Unspecified. EDMS 10:01 Patient has correct armband on for positive identification. Bed in low position. Call ss light in reach. Client placed on continuous cardiac and pulse oximetry monitoring. NIBP monitoring applied. 10:11 EKG done, by ED staff. tm3 10:17 Initial lab(s) drawn, by ma, sent to lab. Inserted saline lock: 22 gauge in right dh3 forearm, using aseptic technique. Blood collected. 10:34 XRAY Chest (1 view) In Process Unspecified. EDMS 11:01 CT Neck Angio In Process Unspecified. EDMS 11:02 CT Head Angio In Process Unspecified. EDMS 11:15 Urine collected: clean catch specimen, cloudy. tm3 11:40 Violeta Arthur, ROSEY is Primary Nurse. ss 14:54 Brain Wo Cont In Process Unspecified. EDMS 15:05 Isaiah Centeno MD is Referral Physician. rudolph Administered Medications: 11:16 Drug: Zofran (Ondansetron) 4 mg Route: IVP; Site: right antecubital; ss 11:18 Drug: Benadryl (diphenhydrAMINE) 50 mg Route: IVP; Site: right antecubital; ss 11:19 Drug: NS 0.9% 1000 ml Route: IV; Rate: 1 bolus; Site: right antecubital; ss 11:19 Drug: foLIC Acid 1 mg Route: IVPB; Site: right antecubital; ss 11:20 Not Given (Pt states she took an oral dose just before coming to ED this am. Dr. christie ryan. ): Ketorolac 30 mg IVP once 12:22 Drug: Ketorolac 15 mg Route: IVP; Site: right antecubital; hb 13:30 Follow up: Response: No adverse reaction hb 12:22 Drug: Dilaudid (HYDROmorphone) 1 mg Route: IVP; Site: right antecubital; hb 13:30 Follow up: Response: No adverse reaction hb 14:06 Drug: Zofran (Ondansetron) 4 mg Route: IVP; Site: right antecubital; hb 14:32 Follow up: Response: No adverse reaction hb 14:06 Drug: Dilaudid (HYDROmorphone) 0.5 mg Route: IVP; Site: right antecubital; hb 14:32 Follow up: Response: No adverse reaction hb 15:09 Drug: Dilaudid (HYDROmorphone) 0.5 mg Route: IVP; Site: right antecubital; hb Medication: 15:03 VIS not applicable for this client. hb Outcome: 15:05 Discharge ordered by . rudolph 16:31 Patient left the ED. hb NIH Stroke Scale - NIH Stroke Score Date: 12/24/2021 Time: 10:46 Total Score = 1 1a. Level of Consciousness (LOC) - 0(Alert) 1b. Level of Consciousness (LOC) (Month \\T\\ Age) - 0(Both) 1c. LOC Commands (Open \\T\\ Closes Eyes/Journeyman Press Operator) - 0(Both) 2. Best Gaze (Lateral Gaze Paresis) - 0(Normal) 3. Visual Field Loss - 0(No visual loss) 4. Facial Palsy - 0(Normal) 5a. Left Arm: Motor (10-second hold) - 0(No drift) 5b. Right Arm: Motor (10-second hold) - 0(No drift) 6a. Left Leg: Motor (5-second hold - always test supine) - 0(No drift) 6b. Right Leg: Motor (5-second hold - always test supine) - 0(No drift) 7. Limb Ataxia (finger/nose \\T\\ heel/dowell - test with eyes open) - 0(Absent) 8. Sensory Loss (pinprick arms/legs/face) - 1(Mild to moderate loss) 9. Best Language: Aphasia (description/naming/reading) - 0(No aphasia) 10. Dysarthria (speech clarity - read or repeat words) - 0(Normal) 11. Extinction and Inattention (visual/tactile/auditory/spatial/personal) - 0(No abnormality) Initials: rudolph Signatures: Dispatcher [employer] EDFili Valderrama tm3 Justin Estrella MD MD cha Mickail, Joel, PA PA jmm Rivera, Kymberly mr Violeta Arthur RN RN ss Baxter, Heather, RN RN Oralia García 3 Corrections: (The following items were deleted from the chart) 10:00 09:44 Chief complaint: Patient states: "It's started with a bad migraine, but ss now my eyes are getting a little blurry and spotted." Pt states now she is experiencing some tingling in RUE which began an hour ago. Woke up with a migraine this morning with N/V at 0400. ss 14:06 12:07 BP 134 / 87; Pulse 112bpm; Resp 17bpm; Pulse Ox 100% RA; Pain 8/10; hb hb
--- NOTE | 2021-12-24 15:05 | EDPHYS ---
Physician Documentation [facility] Name: Natanael Dyson Age: 26 yrs Sex: Female : 1995 Arrival Date: 12/24/2021 Time: 09:24 Bed 16 Private MD: ED Physician Justin Estrella HPI: 12/24 10:46 This 26 yrs old Female presents to ER via Ambulatory with complaints of rudolph Abdominal Pain, Headache, Vomiting. Historical: - Allergies: 09:47 Reglan; ss 09:47 Compazine; ss - PMHx: 09:47 Hypertension; Migraine; ss - PSHx: 09:47 tubal ligation; ss - Immunization history:: Client reports having NOT received the Covid vaccine. - Social history:: Smoking status: Patient denies any tobacco usage or history of. ROS: 10:46 Constitutional: Negative for fever, chills, and weight loss, Eyes: Negative for injury, rudolph pain, redness, and discharge, ENT: Negative for injury, pain, and discharge, Neck: Negative for injury, pain, and swelling, Cardiovascular: Negative for chest pain, palpitations, and edema, Respiratory: Negative for shortness of breath, cough, wheezing, and pleuritic chest pain, Abdomen/GI: Negative for abdominal pain, nausea, vomiting, diarrhea, and constipation, Back: Negative for injury and pain, : Negative for injury, bleeding, discharge, and swelling, MS/Extremity: Negative for injury and deformity, Skin: Negative for injury, rash, and discoloration, Psych: Negative for depression, anxiety, suicide ideation, homicidal ideation, and hallucinations, Allergy/Immunology: Negative for hives, rash, and allergies, Endocrine: Negative for neck swelling, polydipsia, polyuria, polyphagia, and marked weight changes, Hematologic/Lymphatic: Negative for swollen nodes, abnormal bleeding, and unusual bruising. 10:46 Neuro: Positive for headache, tingling, of the right arm. Exam: 10:46 Constitutional: This is a well developed, well nourished patient who is awake, alert, rudolph and in no acute distress. Head/Face: Normocephalic, atraumatic. Eyes: Pupils equal round and reactive to light, extra-ocular motions intact. Lids and lashes normal. Conjunctiva and sclera are non-icteric and not injected. Cornea within normal limits. Periorbital areas with no swelling, redness, or edema. ENT: Nares patent. No nasal discharge, no septal abnormalities noted. Tympanic membranes are normal and external auditory canals are clear. Oropharynx with no redness, swelling, or masses, exudates, or evidence of obstruction, uvula midline. Mucous membranes moist. Neck: Trachea midline, no thyromegaly or masses palpated, and no cervical lymphadenopathy. Supple, full range of motion without nuchal rigidity, or vertebral point tenderness. No Meningismus. Chest/axilla: Normal chest wall appearance and motion. Nontender with no deformity. No lesions are appreciated. Cardiovascular: Regular rate and rhythm with a normal S1 and S2. No gallops, murmurs, or rubs. Normal PMI, no JVD. No pulse deficits. Respiratory: Lungs have equal breath sounds bilaterally, clear to auscultation and percussion. No rales, rhonchi or wheezes noted. No increased work of breathing, no retractions or nasal flaring. Abdomen/GI: Soft, non-tender, with normal bowel sounds. No distension or tympany. No guarding or rebound. No evidence of tenderness throughout. Back: No spinal tenderness. No costovertebral tenderness. Full range of motion. Skin: Warm, dry with normal turgor. Normal color with no rashes, no lesions, and no evidence of cellulitis. MS/ Extremity: Pulses equal, no cyanosis. Neurovascular intact. Full, normal range of motion. Neuro: Awake and alert, GCS 15, oriented to person, place, time, and situation. Cranial nerves II-XII grossly intact. Motor strength 5/5 in all extremities. Sensory grossly intact. Cerebellar exam normal. Normal gait. 11:11 ECG was reviewed by the Attending Physician. [facility] Vital Signs: 09:44 BP 131 / 94; Pulse 92; Resp 14; Temp 97.8(TE); Pulse Ox 100% on R/A; Weight 58.97 kg; ss Height 5 ft. 1 in. (154.94 cm); Pain 6/10; 11:34 BP 134 / 91; Pulse 100; Resp 18; Pulse Ox 100% on NC; tm3 12:07 BP 134 / 87; Pulse 112; Resp 17; Pulse Ox 100% ; Pain 8/10; hb 14:06 BP 119 / 90; Pulse 101; Resp 15; Pulse Ox 99% ; hb 09:44 Body Mass Index 24.56 (58.97 kg, 154.94 cm) ss NIH Stroke Scale Scores: 10:46 NIHSS Score: 1 rudolph Giovana Coma Score: 10:49 Eye Response: spontaneous(4). Verbal Response: oriented(5). Motor Response: obeys rudolph commands(6). Total: 15. MDM: 09:56 Patient medically screened. rudolph 10:49 Differential diagnosis: cluster headache, cerebral vascular accident, intracerebral rudolph hemorrhage, migraine, neoplasm, otitis, subdural hematoma, temporal arteritis, tension headache, traumatic injuries, trigeminal neuralgia, vasomotor headache. Data reviewed: vital signs, nurses notes, lab test result(s), EKG, radiologic studies, CT scan, plain films. Data interpreted: air sampling and monitoring: rate is 92 beats/min, rhythm is regular, Pulse oximetry: on room air is 100 %. Test interpretation: by ED physician or midlevel provider: ECG, plain radiologic studies. Counseling: I had a detailed discussion with the patient and/or guardian regarding: the historical points, exam findings, and any diagnostic results supporting the discharge/admit diagnosis, lab results, radiology results. 13:40 ED course: no tpa, woke at 4am with these symptoms. [facility] 12/24 09:59 Order name: Basic Metabolic Panel; Complete Time: 11:21 rudolph 12/24 09:59 Order name: CBC with Diff; Complete Time: 11:13 rudolph 12/24 09:59 Order name: LFT's; Complete Time: 11:21 12/24 09:59 Order name: Magnesium; Complete Time: 11:21 rudolph 12/24 09:59 Order name: NT PRO-BNP; Complete Time: 11:21 rudolph 12/24 09:59 Order name: PT-INR; Complete Time: 11:13 12/24 09:53 Order name: CT-STROKE BRAIN W/O CONTRAST CT; Complete Time: 11:13 kj 12/24 09:59 Order name: Troponin HS; Complete Time: 11:21 rudolph 12/24 09:59 Order name: XRAY Chest (1 view); Complete Time: 11:13 rudolph 12/24 10:01 Order name: Urine Culture rudolph 12/24 10:46 Order name: Sed Rate; Complete Time: 11:47 12/24 10:46 Order name: CRP; Complete Time: 11:31 [facility] 12/24 11:14 Order name: Urine Dipstick-Ancillary; Complete Time: 11:21 [facility] 12/24 11:14 Order name: Urine --Ancillary (enter results); Complete Time: 11:47 [facility] 12/24 09:59 Order name: EKG; Complete Time: 10:02 [facility] 12/24 09:59 Order name: Cardiac monitoring; Complete Time: 10:23 [facility] 12/24 09:59 Order name: CT Head Angio; Complete Time: 11:31 [facility] 12/24 10:48 Order name: CT Neck Angio; Complete Time: 11:31 [facility] 12/24 14:52 Order name: Brain Wo Cont [facility] 12/24 09:59 Order name: EKG - Nurse/Tech; Complete Time: 10:23 [facility] 12/24 09:59 Order name: IV Saline Lock; Complete Time: 10:23 [facility] 12/24 09:59 Order name: Labs collected and sent; Complete Time: 10:23 [facility] 12/24 09:59 Order name: O2 Per Protocol; Complete Time: 10:24 [facility] 12/24 09:59 Order name: O2 Sat Monitoring; Complete Time: 10:24 [facility] 12/24 09:59 Order name: Oxygen; Complete Time: 11:41 [facility] 12/24 10:01 Order name: Urine Dipstick-Ancillary (obtain specimen); Complete Time: 11:19 [facility] 12/24 10:01 Order name: Urine Test (obtain specimen); Complete Time: 11:19 [facility] EC:11 Rate is 97 beats/min. Rhythm is regular. QRS [place] is Normal. HI interval is normal. QRS rudolph interval is normal. QT interval is normal. No Q waves. T waves are Normal. No ST changes noted. Clinical impression: Normal ECG and No evidence of ischemia. Interpreted by me. Reviewed by me. Administered Medications: 11:16 Drug: Zofran (Ondansetron) 4 mg Route: IVP; Site: right antecubital; ss 11:18 Drug: Benadryl (diphenhydrAMINE) 50 mg Route: IVP; Site: right antecubital; ss 11:19 Drug: NS 0.9% 1000 ml Route: IV; Rate: 1 bolus; Site: right antecubital; ss 11:19 Drug: foLIC Acid 1 mg Route: IVPB; Site: right antecubital; ss 11:20 Not Given (Pt states she took an oral dose just before coming to ED this am. Dr. christie ryan. ): Ketorolac 30 mg IVP once 12:22 Drug: Ketorolac 15 mg Route: IVP; Site: right antecubital; hb 13:30 Follow up: Response: No adverse reaction hb 12:22 Drug: Dilaudid (HYDROmorphone) 1 mg Route: IVP; Site: right antecubital; hb 13:30 Follow up: Response: No adverse reaction hb 14:06 Drug: Zofran (Ondansetron) 4 mg Route: IVP; Site: right antecubital; hb 14:32 Follow up: Response: No adverse reaction hb 14:06 Drug: Dilaudid (HYDROmorphone) 0.5 mg Route: IVP; Site: right antecubital; hb 14:32 Follow up: Response: No adverse reaction hb 15:09 Drug: Dilaudid (HYDROmorphone) 0.5 mg Route: IVP; Site: right antecubital; hb Disposition Summary: 12/24/21 15:05 Discharge Ordered Location: Home rudolph Problem: new rudolph Symptoms: have improved rudolph Condition: Stable rudolph Diagnosis - Headache rudolph - Hemiplegic migraine, not intractable, without status migrainosus rudolph Followup: rudolph - With: Private Physician - When: 2 - 3 days - Reason: Recheck today's complaints, Continuance of care, Re-evaluation by your physician Followup: rudolph - With: - When: 2 - 3 days - Reason: Recheck today's complaints, Continuance of care, Re-evaluation by your physician Discharge Instructions: - Discharge Summary Sheet rudolph - Migraine Headache rudolph - Migraine Headache, [id number] rudolph - Aspirin and Your Heart rudolph Forms: - Medication Reconciliation Form rudolph - Thank You Letter rudolph - Antibiotic Education rudolph - Prescription Opioid Use rudolph - Work release form rudolph Prescriptions: - Fioricet with Codeine [id number] mg Oral capsule - take 1 capsule by ORAL route every 4 hours as needed not to exceed 6 capsules rudolph per 24hrs; 20 capsule; Refills: 0, Product Selection Permitted - Zofran 4 mg Oral Tablet - take 1 tablet by ORAL route every 12 hours As needed; 20 tablet; Refills: 0, rudolph Product Selection Permitted NIH Stroke Scale - NIH Stroke Score Date: 12/24/2021 Time: 10:46 Total Score = 1 1a. Level of Consciousness (LOC) - 0(Alert) 1b. Level of Consciousness (LOC) (Month \T\ Age) - 0(Both) 1c. LOC Commands (Open \T\ Closes Eyes/Manager Of Compliance) - 0(Both) 2. Best Gaze (Lateral Gaze Paresis) - 0(Normal) 3. Visual Field Loss - 0(No visual loss) 4. Facial Palsy - 0(Normal) 5a. Left Arm: Motor (10-second hold) - 0(No drift) 5b. Right Arm: Motor (10-second hold) - 0(No drift) 6a. Left Leg: Motor (5-second hold - always test supine) - 0(No drift) 6b. Right Leg: Motor (5-second hold - always test supine) - 0(No drift) 7. Limb Ataxia (finger/nose \T\ heel/dowell - test with eyes open) - 0(Absent) 8. Sensory Loss (pinprick arms/legs/face) - 1(Mild to moderate loss) 9. Best Language: Aphasia (description/naming/reading) - 0(No aphasia) 10. Dysarthria (speech clarity - read or repeat words) - 0(Normal) 11. Extinction and Inattention (visual/tactile/auditory/spatial/personal) - 0(No abnormality) Initials: rudolph Signatures: Dispatcher [employer] Justin Pinto MD MD cha Smirch, Shelby, RN RN Judi Rich RN RN Corrections: (The following items were deleted from the chart) 14:52 10:02 MR STROKE PROTOCOL+MRI.RAD.BRZ ordered. EDCA EDMS
--- NOTE | 2021-12-24 15:13 | RAD REPORT ---
EXAM DESCRIPTION: MRI - Brain Wo Cont - 12/24/2021 2:55 pm CLINICAL HISTORY: TORRES Headache, drowsiness COMPARISON: Head angio dated 12/24/2021 TECHNIQUE: Multi-sequence, multiplanar MR imaging of the brain was performed without contrast. FINDINGS: No intracranial hemorrhage, hydrocephalus or extra-axial fluid collections. No edema or sh ift of midline structures. No findings to suspect brain mass. DWI is negative for acute CVA. Midline structures are normally formed. Mastoid air cells and paranasal sinuses are clear. IMPRESSION: No acute or concerning intracranial abnormalities.
[2021-12-24 17:22] VITALS: TEMP 97.8
[2021-12-24 17:34] VITALS: BP 119/90; O2SAT 99
--- NOTE | 2021-12-26 08:20 | EKG ---
Test Date: 2021-12-24 Test Time: 10:12:36 [employer]: TM MEASUREMENT RESULTS: Intervals: Rate: 97 MD: 118 QRSD: 74 QT: 322 QTc: 408 [place]: P: 45 MD: 118 QRS: 37 T: 54 INTERPRETIVE STATEMENTS: Normal sinus rhythm Cannot rule out Anterior infarct, age undetermined Abnormal ECG No previous ECG available for comparison Electronically Signed On 12-26-21 08:11:55 CDT by Murphy Vines
== END 2021-12-24 16:31 | disposition home or self-care (01) ==
LOC: ER 09:24
DX: G43.409 Hemiplegic migraine, not intractable, without status migrainosus (principal); I10 Essential (primary) hypertension; Z88.8 Allergy status to other drugs, medicaments and biological substances
CPT/HCPCS: 93005; 87088; 85025; 87086; 80048; 36415; 83735; 81025; 85610; 80076; 85652; 81003; 84484; 83880; 86140; 70496; 70498; 70450; 71045; 70551; 96375; 96374; 99284; Q9967; J1200; J1170 ×3; J7030; J2405 ×2; J2550

== ENCOUNTER 2021-12-29 18:49 | Emergency (ER) | payer OTHER ==
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
[2021-12-29] MEDS ORDERED: dexAMETHasone 10 MG/ML VIAL ONE (19:34)
[2021-12-29] MEDS ORDERED: DIPHENHYDRAMINE 50 MG/ML VIAL ONE (19:34)
[2021-12-29] MEDS ORDERED: KETOROLAC 30 MG/ML INJ ONE (19:35)
[2021-12-29] MEDS ORDERED: NA CHLORIDE 0.9% 1,000 ML ONE (19:35)
[2021-12-29] MEDS ORDERED: ONDANSETRON 4 MG/2 ML VIAL ONE (19:35)
[2021-12-29] MEDS ORDERED: HYDROMORPHONE HCL 1 MG/ML INJ ONE (20:23)
[2021-12-29] MEDS ORDERED: DIAZEPAM 10 MG/2 ML INJ SYRINGE ONE ×2 (21:21→22:31)
--- NOTE | 2021-12-29 21:52 | ER ---
Nurse's Notes [facility] Name: Natanael Dyson Age: 26 yrs Sex: Female : 1995 Arrival Date: 12/29/2021 Time: 18:50 Bed 12 Private MD: Diagnosis: Migraine without aura, not intractable Presentation: 12/29 18:54 Chief complaint: Patient states: I came in two days ago for a horrible headache and bm7 they said I just had a migraine. I tried to call my PCP but she said she doesn't deal with migraines and to come straight to the ER. I have been fighting with my all day so I think my migraine might be due to stress. Coronavirus screen: At this time, the client does not indicate any symptoms associated with coronavirus-19. Ebola Screen: No symptoms or risks identified at this time. Initial Sepsis Screen: Does the patient meet any 2 criteria? No. Patient's initial sepsis screen is negative. Does the patient have a suspected source of infection? No. Patient's initial sepsis screen is negative. Risk Assessment: Do you want to hurt yourself or someone else? Patient reports no desire to harm self or others. Onset of symptoms was December 27, 2021. 18:54 Method Of Arrival: Ambulatory bm7 18:54 Acuity: THIERNO 3 bm7 Triage Assessment: 18:56 Headache History: The patient has had previous headaches and this one is more severe bm7 than previous episodes. General: Appears in no apparent distress. uncomfortable, Behavior is calm, cooperative, appropriate for age. Pain: Complains of pain in forehead Pain does not radiate. Pain currently is 10 out of 10 on a pain scale. Quality of pain is described as throbbing, Pain began 2-3 days ago. Is continuous, Also complains of decreased appetite, nausea, photophobia, inability to perform activities of daily living, inability to concentrate, strain on relationship. EENT: No deficits noted. No signs and/or symptoms were reported regarding the EENT system. Neuro: Level of Consciousness is awake, alert, obeys commands, Oriented to person, place, time, situation, Reports blurred vision headache in entire. Cardiovascular: No deficits noted. Respiratory: No deficits noted. GI: No deficits noted. No signs and/or symptoms were reported involving the gastrointestinal system. : No deficits noted. No signs and/or symptoms were reported regarding the genitourinary system. Derm: No deficits noted. No signs and/or symptoms reported regarding the dermatologic system. Musculoskeletal: No deficits noted. No signs and/or symptoms reported regarding the musculoskeletal system. 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 - Social history:: Smoking status: Patient/guardian denies using tobacco products. Screenin:00 Abuse screen: Denies threats or abuse. Denies injuries from another. Nutritional kb3 screening: No deficits noted. Tuberculosis screening: No symptoms or risk factors identified. Fall Risk None identified. Assessment: 20:00 Reassessment: No changes from previously documented assessment. kb3 20:00 Pain: Complains of pain in top of head and forehead Pain does not radiate. Pain kb3 currently is 10 out of 10 on a pain scale. Quality of pain is described as heavy, pressure, throbbing, Pain began 2-3 days ago. Is continuous. Neuro: No deficits noted. 20:10 General: Reports "My pain is worse, I cannot open my eyes the pain is so bad." nursing tw5 staff relayed message to provider. 20:45 General: Pt reporting no relief from dilaudid and requesting a muscle relaxer to kb3 supplement pain medication. SURVEYING CREW RODMAN notified of pt request. 21:50 General: Pt reports no relief from first dose of valium, requesting more pain kb3 medication and/or more valium. SURVEYING CREW RODMAN notified and at bedside speaking with pt.. Vital Signs: 18:54 BP 143 / 87; Pulse 73; Resp 16; Temp 98.3(TE); Pulse Ox 99% on R/A; Weight 54.43 kg bm7 (R); Height 5 ft. 1 in. (154.94 cm); Pain 10/10; 20:30 BP 130 / 95; Pulse 75; Resp 18; Pulse Ox 100% ; Pain 10/10; kb3 22:30 BP 140 / 86; Pulse 68; Resp 18; Pulse Ox 100% ; Pain 7/10; kb3 18:54 Body Mass Index 22.67 (54.43 kg, 154.94 cm) bm7 [place] Coma Score: 19:05 Eye Response: spontaneous(4). Verbal Response: oriented(5). Motor Response: obeys kb commands(6). Total: 15. ED Course: 18:50 Patient arrived in ED. am2 18:55 Bobbi Vang FNP-C is PHCP. kb 18:55 Justin Estrella MD is Attending Physician. kb 18:56 Triage completed. bm7 18:56 Arm band placed on right wrist. bm7 19:03 Tiffany Gore, RN is Primary Nurse. kb3 19:47 Patient has correct armband on for positive identification. Bed in low position. Call kb3 light in reach. Side rails up X 1. 19:47 No provider procedures requiring assistance completed. Inserted saline lock: 20 gauge kb3 in left hand, using aseptic technique. 22:36 IV discontinued, intact, bleeding controlled, No redness/swelling at site. kb3 Administered Medications: 19:46 Drug: NS 0.9% 1000 ml Route: IV; Rate: 1000 ml; Site: left hand; kb3 21:00 Follow up: IV Status: Completed infusion; IV Intake: 1000ml kb3 22:06 Follow up: Response: No adverse reaction kb3 19:46 Drug: Zofran (Ondansetron) 4 mg Route: IVP; Site: left hand; kb3 22:06 Follow up: Response: No adverse reaction; Nausea is decreased kb3 19:46 Drug: Decadron - Dexamethasone 10 mg Route: IVP; Site: left hand; kb3 19:46 Drug: Ketorolac 30 mg Route: IVP; Site: left hand; kb3 22:05 Follow up: Response: No adverse reaction; Pain is unchanged, physician notified kb3 19:47 Drug: Benadryl (diphenhydrAMINE) 12.5 mg Route: IVP; Site: left hand; kb3 22:06 Follow up: Response: No adverse reaction; Pain is unchanged, physician notified kb3 20:30 Drug: Dilaudid (HYDROmorphone) 1 mg Route: IVP; Site: left hand; kb3 22:05 Follow up: Response: No adverse reaction; Pain is unchanged, physician notified kb3 21:15 Drug: Valium (diazepam) 2 mg Route: IVP; Site: left hand; kb3 22:05 Follow up: Response: No adverse reaction kb3 22:25 Drug: Valium (diazepam) 2 mg Route: IVP; Site: left hand; kb3 22:33 Follow up: Response: No adverse reaction kb3 Medication: 20:00 VIS not applicable for this client. kb3 Intake: 21:00 IV: 1000ml; Total: 1000ml. kb3 Outcome: 21:52 Discharge ordered by MD. kb 22:35 Discharged to home ambulatory. kb3 22:35 Condition: stable 22:35 Discharge instructions given to patient, Instructed on discharge instructions, follow up and referral plans. medication usage, Demonstrated understanding of instructions, follow-up care, medications. 22:36 Patient left the ED. kb3 Signatures: Bobbi Vang, GUSSET MAKER-C GUSSET MAKER-CkIleana Shukla am2 Andressa Wooten, RN RN bm7 [place] Canales tw5 Tiffany Gore, RN RN kb3
--- NOTE | 2021-12-29 21:52 | EDPHYS ---
Physician Documentation [facility] Name: Natanael Dyson Age: 26 yrs Sex: Female : 1995 Arrival Date: 12/29/2021 Time: 18:50 Bed 12 Private MD: ED Physician Justin Estrella HPI: 12/29 19:06 This 26 yrs old Female presents to ER via Ambulatory with complaints of Headache, kb Dizziness. 19:06 The patient complains of pain to the top of head. The patient describes the headache as kb throbbing. Onset: The symptoms/episode began/occurred this morning. Associated signs and symptoms: Pertinent positives: dizziness, nausea, Photophobia vomiting. Severity of symptoms: At its worst the pain was moderate, in the emergency department the pain is unchanged. Headache History: The patient has had previous headaches and this one is similar to previous episodes. The symptoms are alleviated by nothing. the symptoms are aggravated by lights, movement, noise, stress. The patient has experienced similar episodes in the past. The patient has been recently seen at the [facility] Emergency Department, this week. 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 - Social history:: Smoking status: Patient/guardian denies using tobacco products. ROS: 19:06 Constitutional: Negative for fever, chills, and weight loss. kb 19:06 Abdomen/GI: Positive for nausea and vomiting, Negative for abdominal pain. 19:06 Neuro: Positive for dizziness, headache. 19:06 All other systems are negative. Exam: 19:06 Constitutional: This is a well developed, well nourished patient who is awake, alert, kb and in no acute distress. Head/Face: Normocephalic, atraumatic. Eyes: Pupils equal round and reactive to light, extra-ocular motions intact. Lids and lashes normal. Conjunctiva and sclera are non-icteric and not injected. Cornea within normal limits. Periorbital areas with no swelling, redness, or edema. ENT: Moist Mucous membranes Respiratory: Respirations even and unlabored. No increased work of breathing. Talking in full sentences Skin: Warm, dry with normal turgor. Normal color. MS/ Extremity: Pulses equal, no cyanosis. Neurovascular intact. Full, normal range of motion. Neuro: Awake and alert, GCS 15, oriented to person, place, time, and situation. Moves all extremities. Normal gait. Psych: Awake, alert, with orientation to person, place and time. Behavior, mood, and affect are within normal limits. Vital Signs: 18:54 BP 143 / 87; Pulse 73; Resp 16; Temp 98.3(TE); Pulse Ox 99% on R/A; Weight 54.43 kg bm7 (R); Height 5 ft. 1 in. (154.94 cm); Pain 10/10; 20:30 BP 130 / 95; Pulse 75; Resp 18; Pulse Ox 100% ; Pain 10/10; kb3 22:30 BP 140 / 86; Pulse 68; Resp 18; Pulse Ox 100% ; Pain 7/10; kb3 18:54 Body Mass Index 22.67 (54.43 kg, 154.94 cm) bm7 [place] Coma Score: 19:05 Eye Response: spontaneous(4). Verbal Response: oriented(5). Motor Response: obeys kb commands(6). Total: 15. MDM: 18:57 Patient medically screened. kb 19:05 Data reviewed: vital signs, nurses notes. Data interpreted: Pulse oximetry: on room air kb is 99 %. Interpretation: normal. 21:50 Counseling: I had a detailed discussion with the patient and/or guardian regarding: the kb historical points, exam findings, and any diagnostic results supporting the discharge/admit diagnosis, the need for outpatient follow up, a neurologist, to return to the emergency department if symptoms worsen or persist or if there are any questions or concerns that arise at home. ED course: Headache is better, pt will follow up with neurologist for adjustment of medications. . 12/29 19:09 Order name: IV Start; Complete Time: 19:46 kb Administered Medications: 19:46 Drug: NS 0.9% 1000 ml Route: IV; Rate: 1000 ml; Site: left hand; kb3 21:00 Follow up: IV Status: Completed infusion; IV Intake: 1000ml kb3 22:06 Follow up: Response: No adverse reaction kb3 19:46 Drug: Zofran (Ondansetron) 4 mg Route: IVP; Site: left hand; kb3 22:06 Follow up: Response: No adverse reaction; Nausea is decreased kb3 19:46 Drug: Decadron - Dexamethasone 10 mg Route: IVP; Site: left hand; kb3 19:46 Drug: Ketorolac 30 mg Route: IVP; Site: left hand; kb3 22:05 Follow up: Response: No adverse reaction; Pain is unchanged, physician notified kb3 19:47 Drug: Benadryl (diphenhydrAMINE) 12.5 mg Route: IVP; Site: left hand; kb3 22:06 Follow up: Response: No adverse reaction; Pain is unchanged, physician notified kb3 20:30 Drug: Dilaudid (HYDROmorphone) 1 mg Route: IVP; Site: left hand; kb3 22:05 Follow up: Response: No adverse reaction; Pain is unchanged, physician notified kb3 21:15 Drug: Valium (diazepam) 2 mg Route: IVP; Site: left hand; kb3 22:05 Follow up: Response: No adverse reaction kb3 22:25 Drug: Valium (diazepam) 2 mg Route: IVP; Site: left hand; kb3 22:33 Follow up: Response: No adverse reaction kb3 Disposition Summary: 12/29/21 21:52 Discharge Ordered Location: Home kb Condition: Stable kb Diagnosis - Migraine without aura, not intractable kb Followup: kb - With: Emergency Department - When: As needed - Reason: Worsening of condition Followup: kb - With: Private Physician - When: 2 - 3 days - Reason: Recheck today's complaints, Continuance of care, Re-evaluation by your physician Discharge Instructions: - Discharge Summary Sheet kb - Migraine Headache, [id number] kb Forms: - Medication Reconciliation Form kb - Thank You Letter kb - Antibiotic Education kb - Prescription Opioid Use kb Signatures: Bobbi Vang FNP-C FNP-Andressa Krishnan, RN RN bm7 Tiffany Gore, RN RN kb3
[2021-12-30 01:26] VITALS: TEMP 98.3
[2021-12-30 01:37] VITALS: O2SAT 100
[2021-12-30 01:55] VITALS: BP 140/86
== END 2021-12-29 22:36 | disposition home or self-care (01) ==
LOC: ER 18:49
DX: G43.009 Migraine without aura, not intractable, without status migrainosus (principal); I10 Essential (primary) hypertension; Z88.8 Allergy status to other drugs, medicaments and biological substances
CPT/HCPCS: 96361; 96375; 96374; 99283; J1200; J3360 ×2; J1100; J1170; J7030; J2405

== ENCOUNTER 2022-01-06 16:15 | Emergency (ER) | payer OTHER ==
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
[2022-01-06 16:50] LABS: Absolute Lymphocytes (CBC) 2.5 K/uL (0.7-4.9); Hematocrit 38.1 % (36.0-45.0); Lymphocytes % 24.6 % (15.3-44.8); MCV 84.7 fL (80-100); MPV 7.5 fL (7.6-11.3); RBC Red Blood Cell Count 4.49 M/uL (3.86-4.86)
[2022-01-06] MEDS ORDERED: NA CHLORIDE 0.9% 1,000 ML ONE (16:57)
[2022-01-06] MEDS ORDERED: MEPERIDINE HCL 25 MG/ML SYR ONE ×2 (16:57→17:58)
[2022-01-06] MEDS ORDERED: ONDANSETRON 4 MG/2 ML VIAL ONE (16:57)
--- NOTE | 2022-01-06 17:05 | RAD REPORT ---
EXAM DESCRIPTION: RAD - Chest Single View - 01/06/2022 4:36 pm CLINICAL HISTORY: CHEST PAIN COMPARISON: Chest Single View dated 10/28/2021; Chest Single View dated 07/18/2021; Chest Single View d ated 07/16/2021; Chest Single View dated 07/04/2021No comparisonsChest Single View dated 12/24/2021; Ches t Single View dated 08/13/2020; Chest Single View dated 05/27/2020 FINDINGS: Lines: None. Lungs: No evidence of edema or pneumonia. Pleural: No significant pleural effusions or pneumothorax. Cardiac: The heart size is within normal limits. Bones: No acute fractures. Other: IMPRESSION: No acute cardiopulmonary disease.
[2022-01-06 17:24] LABS: BUN Blood Urea Nitrogen 18 mg/dL (7-18); Bicarbonate 23 mmol/L (21-32); Glomerular Filtration Rate 90 ml/min (=/>90); Glucose Level 98 mg/dL (74-106); Potassium 3.7 mmol/L (3.5-5.1); Sodium Level 140 mmol/L (136-145)
[2022-01-06 17:29] LABS: Troponin High Sensitivity < 3.0 pg/mL (<58.9)
[2022-01-06] MEDS ORDERED: KETOROLAC 30 MG/ML INJ ONE (17:39)
--- NOTE | 2022-01-06 18:09 | ER ---
Nurse's Notes [facility] Name: Natanael Dyson Age: 26 yrs Sex: Female : 1995 Arrival Date: 01/06/2022 Time: 16:16 Bed 9 Private MD: Diagnosis: Migraine without aura, not intractable Presentation: 01/06 16:17 Chief complaint: Chest pain, blurred vision, and headache x 3 days, also reports can't hb stop crying due to recent of parent. Coronavirus screen: At this time, the client does not indicate any symptoms associated with coronavirus-19. Ebola Screen: No symptoms or risks identified at this time. Risk Assessment: Do you want to hurt yourself or someone else? Patient reports no desire to harm self or others. Onset of symptoms was January 03, 2022. 16:17 Method Of Arrival: Ambulatory hb 16:17 Acuity: THIERNO 3 hb 16:45 Initial Sepsis Screen: Does the patient meet any 2 criteria? No. Patient's initial mb8 sepsis screen is negative. Does the patient have a suspected source of infection? No. Patient's initial sepsis screen is negative. Triage Assessment: 16:45 General: Appears uncomfortable, Behavior is calm, cooperative, appropriate for age. mb8 Historical: - Allergies: 16:20 Compazine; hb 16:20 Reglan; hb - Home Meds: 16:20 Depakote Oral [Active]; hb - PMHx: 16:20 Hypertension; Migraine; hb - PSHx: 16:20 tubal ligation; hb - Immunization history:: Adult Immunizations up to date. - Social history:: Smoking status: Patient denies any tobacco usage or history of. Screenin:44 Abuse screen: Denies threats or abuse. Denies injuries from another. Nutritional mb8 screening: No deficits noted. Tuberculosis screening: No symptoms or risk factors identified. Fall Risk None identified. Assessment: 16:43 Pain: Complains of pain in head and chest Pain does not radiate. Pain currently is 10 mb8 out of 10 on a pain scale. Pain began gradually. Cardiovascular: Reports chest pain, Denies shortness of breath, Capillary refill < 3 seconds Pulses are all present. Rhythm is sinus rhythm. Respiratory: No deficits noted. Breath sounds are clear bilaterally. Vital Signs: 16:17 BP 137 / 97; Pulse 94; Resp 16; Temp 98.2; Pulse Ox 100% ; Weight 54.43 kg; Height 5 hb ft. 1 in. (154.94 cm); Pain 10/10; 17:59 BP 105 / 85; Pulse 80; Resp 16; Pulse Ox 99% ; Pain 5/10; mb8 16:17 Body Mass Index 22.67 (54.43 kg, 154.94 cm) hb ED Course: 16:16 Patient arrived in ED. rg4 16:16 Bobbi Vang FNP-C is [facility]. kb 16:16 Harjit Samson MD is Attending Physician. kb 16:17 Arm band placed on. hb 16:19 Triage completed. hb 16:21 Daniel Harrell, ROSEY is Primary Nurse. mb8 16:38 XRAY Chest (1 view) In Process Unspecified. EDMS 16:44 Patient has correct armband on for positive identification. Placed in gown. Bed in low mb8 position. Call light in reach. Side rails up X2. Client placed on continuous cardiac and pulse oximetry monitoring. NIBP monitoring applied. ekg monitor on. 16:44 No provider procedures requiring assistance completed. Inserted saline lock: 20 gauge mb8 in left forearm, using aseptic technique. Patient maintains SpO2 saturation greater than 95% on room air. 16:49 EKG done, by ED staff, reviewed by Bobbi GO. jw7 18:26 IV discontinued, intact, bleeding controlled, No redness/swelling at site. Pressure mb8 dressing applied. Administered Medications: 16:55 Drug: Demerol (meperidine) 25 mg Route: IVP; Site: left forearm; mb8 17:40 Follow up: Response: No adverse reaction; Pain is decreased mb8 16:55 Drug: Zofran (Ondansetron) 4 mg Route: IVP; Site: left forearm; mb8 17:40 Follow up: Response: No adverse reaction mb8 16:55 Drug: NS 0.9% 1000 ml Route: IV; Rate: 1000 ml; Site: left forearm; mb8 17:40 Follow up: Response: No adverse reaction; IV Status: Completed infusion mb8 17:35 Drug: Ketorolac 30 mg Route: IVP; Site: left forearm; mb8 17:50 Drug: Demerol (meperidine) 25 mg Route: IVP; Site: left forearm; mb8 18:25 Follow up: Response: No adverse reaction; Marked relief of symptoms; Pain is decreased mb8 Medication: 16:44 VIS not applicable for this client. mb8 Outcome: 18:09 Discharge ordered by MD. jain 18:26 Discharged to home ambulatory. mb8 18:26 Condition: stable 18:26 Discharge instructions given to patient, Instructed on discharge instructions, follow up and referral plans. medication usage, Demonstrated understanding of instructions, follow-up care, medications. 18:26 Patient left the ED. mb8 Signatures: Dispatcher [employer] EDMS Bobbi Vang, WOOD TILE INSTALLER-C ELADIO-Judi Ng RN RN Darlyn Duque4 Marija [id number] Daniel Hrarell, RN RN mb8 Corrections: (The following items were deleted from the chart) 16:20 16:17 Pulse 94bpm; Resp 16bpm; Pulse Ox 100%; Temp 98.2F; 54.43 kg; Height 5 ft. 1 in.; hb BMI: 22.6; Pain 10/10; hb
--- NOTE | 2022-01-06 18:09 | EDPHYS ---
Physician Documentation [facility] Name: Natanael Dyson Age: 26 yrs Sex: Female : 1995 Arrival Date: 01/06/2022 Time: 16:16 Bed 9 Private MD: ED Physician Harjit Samson HPI: 01/06 18:03 This 26 yrs old Female presents to ER via Ambulatory with complaints of Chest Pain, kb Breathing Difficulty, Migraine. 18:03 The patient complains of pain to the forehead. The patient describes the headache as kb throbbing. Onset: The symptoms/episode began/occurred today. Associated signs and symptoms: Pertinent positives: nausea, Photophobia vomiting. Severity of symptoms: At its worst the pain was moderate, in the emergency department the pain is unchanged. Headache History: The patient has had previous headaches and this one is similar to previous episodes. The symptoms are alleviated by nothing. the symptoms are aggravated by lights, noise. The patient has experienced similar episodes in the past. The patient has not recently seen a physician. Pt reports migraine that started today. States she has been under a lot of stress because her father just . Pt appears anxious. States she has had chest pains and shortness of breath as well. . Historical: - Allergies: 16:20 Compazine; hb 16:20 Reglan; hb - Home Meds: 16:20 Depakote Oral [Active]; hb - PMHx: 16:20 Hypertension; Migraine; hb - PSHx: 16:20 tubal ligation; hb - Immunization history:: Adult Immunizations up to date. - Social history:: Smoking status: Patient denies any tobacco usage or history of. ROS: 18:01 Constitutional: Negative for fever, chills, and weight loss. kb 18:01 Cardiovascular: Positive for chest pain, Negative for edema, orthopnea, palpitations, paroxysmal nocturnal dyspnea. 18:01 Respiratory: Positive for shortness of breath. 18:01 Abdomen/GI: Positive for nausea and vomiting, Negative for abdominal pain. 18:01 Neuro: Positive for headache. 18:01 All other systems are negative. Exam: 17:31 Head/Face: Normocephalic, atraumatic. ENT: Moist Mucous membranes Cardiovascular: kb Regular rate and rhythm with a normal S1 and S2. No gallops, murmurs, or rubs. No pulse deficits. Respiratory: Respirations even and unlabored. No increased work of breathing. Talking in full sentences Abdomen/GI: Soft, non-tender. No distention Skin: Warm, dry with normal turgor. Normal color. MS/ Extremity: Pulses equal, no cyanosis. Neurovascular intact. Full, normal range of motion. Neuro: Awake and alert, GCS 15, oriented to person, place, time, and situation. Moves all extremities. Normal gait. Psych: Awake, alert, with orientation to person, place and time. Behavior, mood, and affect are within normal limits. 17:31 ECG was reviewed by the Attending Physician. 18:01 Constitutional: The patient appears alert, awake, anxious. kb Vital Signs: 16:17 BP 137 / 97; Pulse 94; Resp 16; Temp 98.2; Pulse Ox 100% ; Weight 54.43 kg; Height 5 hb ft. 1 in. (154.94 cm); Pain 10/10; 17:59 BP 105 / 85; Pulse 80; Resp 16; Pulse Ox 99% ; Pain 5/10; mb8 16:17 Body Mass Index 22.67 (54.43 kg, 154.94 cm) hb MDM: 16:16 Patient medically screened. kb 18:02 Data reviewed: vital signs, nurses notes. Data interpreted: Pulse oximetry: on room air kb is 99 %. Interpretation: normal. Counseling: I had a detailed discussion with the patient and/or guardian regarding: the historical points, exam findings, and any diagnostic results supporting the discharge/admit diagnosis, lab results, radiology results, the need for outpatient follow up, a family practitioner, a neurologist, to return to the emergency department if symptoms worsen or persist or if there are any questions or concerns that arise at home. 01/06 16:21 Order name: Basic Metabolic Panel; Complete Time: 17:30 kb 01/06 16:21 Order name: CBC with Diff; Complete Time: 17:24 kb 01/06 16:21 Order name: Troponin HS; Complete Time: 17:30 kb 01/06 16:21 Order name: XRAY Chest (1 view); Complete Time: 17:10 kb 01/06 16:21 Order name: EKG; Complete Time: 16:22 kb 01/06 16:21 Order name: Cardiac monitoring; Complete Time: 16:45 kb 01/06 16:21 Order name: EKG - Nurse/Tech; Complete Time: 16:45 kb 01/06 16:21 Order name: IV Saline Lock; Complete Time: 16:45 kb 01/06 16:21 Order name: Labs collected and sent; Complete Time: 16:45 kb 01/06 16:21 Order name: O2 Per Protocol; Complete Time: 16:22 kb 01/06 16:21 Order name: O2 Sat Monitoring; Complete Time: 16:22 kb EC:31 Rate is 99 beats/min. Rhythm is regular. QRS [place] is Normal. [place] interval is normal at kb 126 msec. QRS interval is normal at 82 msec. QT interval is normal at 438 msec. Administered Medications: 16:55 Drug: Demerol (meperidine) 25 mg Route: IVP; Site: left forearm; mb8 17:40 Follow up: Response: No adverse reaction; Pain is decreased mb8 16:55 Drug: Zofran (Ondansetron) 4 mg Route: IVP; Site: left forearm; mb8 17:40 Follow up: Response: No adverse reaction mb8 16:55 Drug: NS 0.9% 1000 ml Route: IV; Rate: 1000 ml; Site: left forearm; mb8 17:40 Follow up: Response: No adverse reaction; IV Status: Completed infusion mb8 17:35 Drug: Ketorolac 30 mg Route: IVP; Site: left forearm; mb8 17:50 Drug: Demerol (meperidine) 25 mg Route: IVP; Site: left forearm; mb8 18:25 Follow up: Response: No adverse reaction; Marked relief of symptoms; Pain is decreased mb8 Disposition: 18:46 Co-signature as Attending Physician, Harjit Samson MD. rn Disposition Summary: 01/06/22 18:09 Discharge Ordered Location: Home kb Condition: Stable kb Diagnosis - Migraine without aura, not intractable kb Followup: kb - With: Emergency Department - When: As needed - Reason: Worsening of condition Followup: kb - With: Private Physician - When: 2 - 3 days - Reason: Recheck today's complaints, Continuance of care, Re-evaluation by your physician Discharge Instructions: - Discharge Summary Sheet kb - Migraine Headache, [id number] kb Forms: - Medication Reconciliation Form kb - Thank You Letter kb - Antibiotic Education kb - Prescription Opioid Use kb Signatures: Dispatcher [employer] EDBobbi Ramachandran, MASTER MECHANIC-C MASTER MECHANIC-Ckb Harjit Samson MD MD rn Baxter, Heather, RN RN hb Bates, Michael, RN RN mb8 Corrections: (The following items were deleted from the chart) 18:02 17:31 Constitutional: This is a well developed, well nourished patient who is awake, kb alert, and in no acute distress. Head/Face: Normocephalic, atraumatic. ENT: Moist Mucous membranes Cardiovascular: Regular rate and rhythm with a normal S1 and S2. No gallops, murmurs, or rubs. No pulse deficits. Respiratory: Respirations even and unlabored. No increased work of breathing. Talking in full sentences Abdomen/GI: Soft, non-tender. No distention Skin: Warm, dry with normal turgor. Normal color. MS/ Extremity: Pulses equal, no cyanosis. Neurovascular intact. Full, normal range of motion. Neuro: Awake and alert, GCS 15, oriented to person, place, time, and situation. Moves all extremities. Normal gait. Psych: Awake, alert, with orientation to person, place and time. Behavior, mood, and affect are within normal limits. kb
[2022-01-06 19:19] VITALS: TEMP 98.2
[2022-01-06 19:21] VITALS: BP 105/85; O2SAT 99
--- NOTE | 2022-01-07 12:50 | EKG ---
Test Date: 2022-01-06 Test Time: 16:49:50 Rn Social Work: MOHAN MEASUREMENT RESULTS: Intervals: Rate: 99 OK: 126 QRSD: 82 QT: 342 QTc: 438 [place]: P: 39 OK: 126 QRS: 27 T: 41 INTERPRETIVE STATEMENTS: Normal sinus rhythm Normal ECG Compared to ECG 12/24/2021 10:12:36 Myocardial infarct finding no longer present Electronically Signed On 01-07-22 12:49:04 CDT by Antoni Nixon
== END 2022-01-06 18:26 | disposition home or self-care (01) ==
LOC: ER 16:15
DX: G43.009 Migraine without aura, not intractable, without status migrainosus (principal); R07.9 Chest pain, unspecified; I10 Essential (primary) hypertension; Z88.8 Allergy status to other drugs, medicaments and biological substances
CPT/HCPCS: 96361; 93005; 85025; 80048; 36415; 84484; 71045; 96375; 96374; 99285; J2175 ×2; J7030; J2405

== ENCOUNTER 2022-01-13 02:40 | Emergency (ER) | payer OTHER ==
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
[2022-01-13 03:22] LABS: Urine Blood 2+ (Negative); Urine Glucose Negative (Negative); Urine Protein Trace (Negative); Urine Specific Gravity >=1.030 (1.005-1.030)
[2022-01-13] MEDS ORDERED: KETOROLAC 30 MG/ML INJ ONE (03:34)
[2022-01-13] MEDS ORDERED: NA CHLORIDE 0.9% 1,000 ML ONE ×2 (03:34→05:35)
[2022-01-13] MEDS ORDERED: ONDANSETRON 4 MG/2 ML VIAL ONE ×2 (03:34→04:14)
[2022-01-13] MEDS ORDERED: MORPHINE 4 MG/ML SYR ONE ×2 (03:34→04:14)
[2022-01-13 03:37] LABS: Urine Bacteria <20 /HPF (<20); Urine Mucus Slight /HPF (None Seen); Urine RBC 21-50 /HPF (None Seen)
[2022-01-13 03:50] LABS: Hematocrit 37.6 % (36.0-45.0); Lymphocytes % 22.6 % (15.3-44.8); MPV 7.5 fL (7.6-11.3); RBC Red Blood Cell Count 4.43 M/uL (3.86-4.86)
[2022-01-13 04:08] LABS: Albumin 3.7 g/dL (3.4-5.0); Bilirubin Total 0.2 mg/dL (0.2-1.0); Potassium 3.6 mmol/L (3.5-5.1); Protein, Total 7.3 g/dL (6.4-8.2)
[2022-01-13] MEDS ORDERED: PROMETHAZINE INJ 25 MG/ML AMP ONE ×2 (04:39→05:35)
[2022-01-13] MEDS ORDERED: HYDROMORPHONE HCL 0.5 MG/0.5 ML INJ ONE (05:35)
--- NOTE | 2022-01-13 06:37 | ER ---
Nurse's Notes [facility] Name: Natanael Dyson Age: 26 yrs Sex: Female : 1995 Arrival Date: 01/13/2022 Time: 02:43 Bed 8 Private MD: Diagnosis: Hydronephrosis with renal and ureteral calculous obstruction;Hydronephrosis with ureteral stricture, not elsewhere classified;Gross hematuria;Hematuria, unspecified;Abdominal pain, Generalized Presentation: 01/13 02:47 Chief complaint: Patient states: "My right side is so so sore and now I've started as6 throwing up a lot". Coronavirus screen: At this time, the client does not indicate any symptoms associated with coronavirus-19. Ebola Screen: No symptoms or risks identified at this time. Initial Sepsis Screen: Does the patient meet any 2 criteria? No. Patient's initial sepsis screen is negative. Does the patient have a suspected source of infection? No. Patient's initial sepsis screen is negative. Risk Assessment: Do you want to hurt yourself or someone else? Patient reports no desire to harm self or others. Onset of symptoms was January 11, 2022. 02:47 Method Of Arrival: Ambulatory as6 02:47 Acuity: THIERNO 3 as6 Historical: - Allergies: 02:49 Reglan; as6 02:49 Compazine; as6 - Home Meds: 02:49 Depakote Oral [Active]; as6 - PMHx: 02:49 Hypertension; Migraine; as6 - PSHx: 02:49 tubal ligation; as6 - Immunization history:: Client reports having NOT received the Covid vaccine. - Social history:: Smoking status: Patient denies any tobacco usage or history of. Screenin:19 Abuse screen: Denies threats or abuse. Denies injuries from another. Nutritional ll3 screening: No deficits noted. Tuberculosis screening: No symptoms or risk factors identified. Fall Risk None identified. Assessment: 03:19 General: Appears ill, Behavior is calm, cooperative. Pain: Complains of pain in right ll3 lower quadrant Pain does not radiate. Pain currently is 8 out of 10 on a pain scale. Pain began 1 day ago. Is continuous, Aggravated by increased activity, weight bearing. Neuro: Level of Consciousness is awake, alert, obeys commands, Oriented to person, place, time, situation. Respiratory: Reports cough that is since last week Respiratory effort is even, unlabored, Respiratory pattern is regular, symmetrical. GI: Bowel sounds present X 4 quads. Abd is soft X 4 quads Abdomen is tender to palpation in right lower quadrant Guarding noted in right lower quadrant Reports lower abdominal pain, nausea, vomiting, Patient currently denies constipation, diarrhea. EENT: Reports pain when swallowing. Derm: Skin is pink, warm \\T\\ dry. 04:13 General: Appears uncomfortable, Behavior is calm, cooperative. kd3 07:00 Reassessment: RECD REPORT FROM JUANY CURRIE. 26YO WF P/W ABD PAIN. ALL CURRENT ORDERS bp COMPLETED. CT RESULTS PENDING FOR DISPO. 07:26 Reassessment: PT CLEARED FOR D/C AFTER IVF. bp 08:29 Reassessment: Patient states symptoms have improved. bp Vital Signs: 02:47 BP 144 / 85; Pulse 101; Resp 18 S; Temp 98.2(O); Pulse Ox 97% on R/A; Weight 54.43 kg as6 (R); Height 5 ft. 1 in. (154.94 cm) (R); Pain 8/10; 04:13 BP 143 / 93; Pulse 98; Resp 19; Pulse Ox 100% on R/A; kd3 05:49 BP 130 / 98; Pulse 103; Resp 18; Pulse Ox 100% on R/A; kd3 07:26 BP 129 / 89; Pulse 88; Resp 16; Pulse Ox 100% ; bp 08:29 BP 111 / 82; Pulse 84; Resp 16; Pulse Ox 100% ; bp 02:47 Body Mass Index 22.67 (54.43 kg, 154.94 cm) as6 ED Course: 02:43 Patient arrived in ED. bp1 02:49 Triage completed. as6 02:50 Arm band placed on. as6 02:52 Justin Estrella MD is Attending Physician. rudloph 03:07 Juany Santiago, ROSEY is Primary Nurse. kd3 03:19 Patient has correct armband on for positive identification. Bed in low position. Call ll3 light in reach. Side rails up X 1. 03:44 Inserted saline lock: 22 gauge in right forearm, using aseptic technique. Blood as6 collected. 05:20 CT Abd/Pelvis - IV Contrast Only In Process Unspecified. EDMS 06:36 Tristan Moeller MD is Referral Physician. rudolph 07:06 Primary Nurse role handed off by Juany Santiago, ROSEY bp 07:06 Jayy Wooten, ROSEY is Primary Nurse. bp 08:29 No provider procedures requiring assistance completed. IV discontinued, intact, bp bleeding controlled, No redness/swelling at site. Pressure dressing applied. Administered Medications: 03:45 Drug: NS 0.9% 1000 ml Route: IV; Rate: 1 bolus; Site: right forearm; as6 07:10 Follow up: IV Status: Completed infusion; IV Intake: 1000ml bp 03:45 Drug: Zofran (Ondansetron) 4 mg Route: IVP; Site: right forearm; as6 07:10 Follow up: Response: No adverse reaction bp 03:45 Drug: morphine 4 mg Route: IVP; Infused Over: 4 mins; Site: right forearm; as6 07:09 Follow up: Response: Pain is decreased bp 03:45 Drug: Ketorolac 30 mg Route: IVP; Site: right forearm; as6 07:10 Follow up: Response: Pain is decreased bp 04:12 Drug: Zofran (Ondansetron) 4 mg Route: IVP; Site: right forearm; kd3 07:10 Follow up: Response: No adverse reaction bp 04:12 Drug: morphine 4 mg Route: IVP; Infused Over: 4 mins; Site: right forearm; kd3 07:09 Follow up: Response: Pain is decreased bp 04:35 Drug: Phenergan (promethazine) 12.5 mg Route: IVP; Site: right antecubital; kd3 07:09 Follow up: Response: No adverse reaction bp 05:37 Drug: NS 0.9% 1000 ml Route: IV; Rate: 125 ml/hr; Site: right antecubital; kd3 08:31 Follow up: IV Status: Completed infusion; IV Intake: 1000ml bp 05:38 Drug: Dilaudid (HYDROmorphone) 1 mg Route: IVP; Site: right antecubital; kd3 07:09 Follow up: Response: Pain is decreased bp 05:38 Drug: Phenergan (promethazine) 12.5 mg Route: IVP; Site: right antecubital; kd3 07:09 Follow up: Response: No adverse reaction bp 05:38 Drug: NS 0.9% 500 ml Route: IV; Rate: bolus; Site: right antecubital; kd3 07:09 Follow up: IV Status: Completed infusion; IV Intake: 500ml bp 06:35 CANCELLED (Duplicate Order): Cipro (ciprofloxacin) 250 mg PO once rudolph 07:05 Drug: Flomax (tamsulosin) 0.4 mg Route: PO; ha1 07:09 Follow up: Response: No adverse reaction bp 07:05 Drug: Rocephin (cefTRIAXone) 1 grams Route: IV; Rate: per protocol; Site: right ha1 antecubital; 08:31 Follow up: IV Status: Completed infusion; IV Intake: 50ml bp Medication: 05:42 VIS not applicable for this client. kd3 Intake: 07:09 IV: 500ml; Total: 500ml. bp 07:10 IV: 1000ml; Total: 1500ml. bp 08:31 IV: 1000ml; Total: 2500ml. bp 08:31 IV: 50ml; Total: 2550ml. bp Outcome: 06:37 Discharge ordered by . rudolph 08:29 Discharged to home ambulatory. bp 08:29 Condition: stable 08:29 Discharge instructions given to patient, Instructed on discharge instructions, follow up and referral plans. medication usage, Demonstrated understanding of instructions, follow-up care, medications, Prescriptions given X 5 08:31 Patient left the ED. bp Signatures: Dispatcher [employer] EDMS Justin Estrella MD MD cha Peltier, Brian, RN RN Andressa Caceres Ashby RN RN [email or web address] Jamie Blanchard RN RN 3 Juany Santiago RN RN kd3 Zainab Escamilla, RN RN 1
--- NOTE | 2022-01-13 06:38 | EDPHYS ---
Physician Documentation [facility] Name: Natanael Dyson Age: 26 yrs Sex: Female : 1995 Arrival Date: 01/13/2022 Time: 02:43 Bed 8 Private MD: ROMAN Physician Justin Estrella HPI: 01/13 03:04 This 26 yrs old Female presents to ER via Ambulatory with complaints of rudolph Abdominal Pain. 03:04 The patient presents with abdominal pain right lower quadrant. Onset: The rudloph symptoms/episode began/occurred yesterday. The symptoms do not radiate. Associated signs and symptoms: Pertinent positives: fever. The symptoms are described as dull, steady. Modifying factors: The symptoms are alleviated by nothing, the symptoms are aggravated by jumping, medication(s), movement, walking. Severity of pain: At its worst the pain was mild in the emergency department the pain is unchanged. The patient has not experienced similar symptoms in the past. Historical: - Allergies: 02:49 Reglan; as6 02:49 Compazine; as6 - Home Meds: 02:49 Depakote Oral [Active]; as6 - PMHx: 02:49 Hypertension; Migraine; as6 - PSHx: 02:49 tubal ligation; as6 - Immunization history:: Client reports having NOT received the Covid vaccine. - Social history:: Smoking status: Patient denies any tobacco usage or history of. ROS: 03:05 Constitutional: Negative for fever, chills, and weight loss, Eyes: Negative for injury, rudolph pain, redness, and discharge, ENT: Negative for injury, pain, and discharge, Neck: Negative for injury, pain, and swelling, Cardiovascular: Negative for chest pain, palpitations, and edema, Respiratory: Negative for shortness of breath, cough, wheezing, and pleuritic chest pain, Back: Negative for injury and pain, : Negative for injury, bleeding, discharge, and swelling, MS/Extremity: Negative for injury and deformity, Skin: Negative for injury, rash, and discoloration, Neuro: Negative for headache, weakness, numbness, tingling, and seizure, Psych: Negative for depression, anxiety, suicide ideation, homicidal ideation, and hallucinations, Allergy/Immunology: Negative for hives, rash, and allergies, Endocrine: Negative for neck swelling, polydipsia, polyuria, polyphagia, and marked weight changes, Hematologic/Lymphatic: Negative for swollen nodes, abnormal bleeding, and unusual bruising. 03:05 Abdomen/GI: Positive for abdominal pain, nausea and vomiting, abdominal cramps. Exam: 03:05 Constitutional: This is a well developed, well nourished patient who is awake, alert, rudolph and in no acute distress. Head/Face: Normocephalic, atraumatic. Eyes: Pupils equal round and reactive to light, extra-ocular motions intact. Lids and lashes normal. Conjunctiva and sclera are non-icteric and not injected. Cornea within normal limits. Periorbital areas with no swelling, redness, or edema. ENT: Nares patent. No nasal discharge, no septal abnormalities noted. Tympanic membranes are normal and external auditory canals are clear. Oropharynx with no redness, swelling, or masses, exudates, or evidence of obstruction, uvula midline. Mucous membranes moist. Neck: Trachea midline, no thyromegaly or masses palpated, and no cervical lymphadenopathy. Supple, full range of motion without nuchal rigidity, or vertebral point tenderness. No Meningismus. Chest/axilla: Normal chest wall appearance and motion. Nontender with no deformity. No lesions are appreciated. Cardiovascular: Regular rate and rhythm with a normal S1 and S2. No gallops, murmurs, or rubs. Normal PMI, no JVD. No pulse deficits. Respiratory: Lungs have equal breath sounds bilaterally, clear to auscultation and percussion. No rales, rhonchi or wheezes noted. No increased work of breathing, no retractions or nasal flaring. Abdomen/GI: Soft, non-tender, with normal bowel sounds. No distension or tympany. No guarding or rebound. No evidence of tenderness throughout. Back: No spinal tenderness. No costovertebral tenderness. Full range of motion. Skin: Warm, dry with normal turgor. Normal color with no rashes, no lesions, and no evidence of cellulitis. MS/ Extremity: Pulses equal, no cyanosis. Neurovascular intact. Full, normal range of motion. Neuro: Awake and alert, GCS 15, oriented to person, place, time, and situation. Cranial nerves II-XII grossly intact. Motor strength 5/5 in all extremities. Sensory grossly intact. Cerebellar exam normal. Normal gait. Psych: Awake, alert, with orientation to person, place and time. Behavior, mood, and affect are within normal limits. 03:05 Musculoskeletal/extremity: Circulation is intact in all extremities. Sensation intact. Compartment Syndrome exam of affected extremity: is normal. Joints: All joints are normal except DVT Exam: No signs of deep vein thrombosis. no pain, no swelling, no tenderness, negative Homans' sign noted on exam, no appreciated bluish discoloration, no erythema, no increased warmth. Vital Signs: 02:47 BP 144 / 85; Pulse 101; Resp 18 S; Temp 98.2(O); Pulse Ox 97% on R/A; Weight 54.43 kg as6 (R); Height 5 ft. 1 in. (154.94 cm) (R); Pain 8/10; 04:13 BP 143 / 93; Pulse 98; Resp 19; Pulse Ox 100% on R/A; kd3 05:49 BP 130 / 98; Pulse 103; Resp 18; Pulse Ox 100% on R/A; kd3 07:26 BP 129 / 89; Pulse 88; Resp 16; Pulse Ox 100% ; bp 08:29 BP 111 / 82; Pulse 84; Resp 16; Pulse Ox 100% ; bp 02:47 Body Mass Index 22.67 (54.43 kg, 154.94 cm) as6 MDM: 02:52 Patient medically screened. [facility] 03:06 Differential diagnosis: appendicitis, bowel obstruction, Cholelithiasis, rudolph diverticulitis, Dysmenorrhea, Ectopic , Menorrhagia, non-specific abd pain. Data reviewed: vital signs, nurses notes, lab test result(s), radiologic studies, CT scan. Data interpreted: compliance monitor: rate is 101 beats/min, rhythm is regular, Pulse oximetry: on room air is 97 %. Test interpretation: by ED physician or midlevel provider: ECG, plain radiologic studies. Counseling: I had a detailed discussion with the patient and/or guardian regarding: the historical points, exam findings, and any diagnostic results supporting the discharge/admit diagnosis, lab results, radiology results. 01/13 03:03 Order name: CBC with Diff; Complete Time: 03:58 [facility] 01/13 03:03 Order name: CMP; Complete Time: 05:22 [facility] 01/13 03:03 Order name: Lipase; Complete Time: 05:22 [facility] 01/13 03:03 Order name: Urine Microscopic Only; Complete Time: 03:58 rudolph 01/13 03:22 Order name: Urine Dipstick-Ancillary; Complete Time: 03:58 EDMS 01/13 03:03 Order name: CT Abd/Pelvis - IV Contrast Only [facility] 01/13 06:37 Order name: SARS RAPID as6 01/13 03:03 Order name: IV Saline Lock; Complete Time: 03:45 [facility] 01/13 03:03 Order name: Labs collected and sent; Complete Time: 03:45 [facility] 01/13 03:03 Order name: Urine Dipstick-Ancillary (obtain specimen); Complete Time: 03:23 rudolph 01/13 03:03 Order name: Urine Test (obtain specimen); Complete Time: 03:23 [facility] Administered Medications: 03:45 Drug: NS 0.9% 1000 ml Route: IV; Rate: 1 bolus; Site: right forearm; as6 07:10 Follow up: IV Status: Completed infusion; IV Intake: 1000ml bp 03:45 Drug: Zofran (Ondansetron) 4 mg Route: IVP; Site: right forearm; as6 07:10 Follow up: Response: No adverse reaction bp 03:45 Drug: morphine 4 mg Route: IVP; Infused Over: 4 mins; Site: right forearm; as6 07:09 Follow up: Response: Pain is decreased bp 03:45 Drug: Ketorolac 30 mg Route: IVP; Site: right forearm; as6 07:10 Follow up: Response: Pain is decreased bp 04:12 Drug: Zofran (Ondansetron) 4 mg Route: IVP; Site: right forearm; kd3 07:10 Follow up: Response: No adverse reaction bp 04:12 Drug: morphine 4 mg Route: IVP; Infused Over: 4 mins; Site: right forearm; kd3 07:09 Follow up: Response: Pain is decreased bp 04:35 Drug: Phenergan (promethazine) 12.5 mg Route: IVP; Site: right antecubital; kd3 07:09 Follow up: Response: No adverse reaction bp 05:37 Drug: NS 0.9% 1000 ml Route: IV; Rate: 125 ml/hr; Site: right antecubital; kd3 08:31 Follow up: IV Status: Completed infusion; IV Intake: 1000ml bp 05:38 Drug: Dilaudid (HYDROmorphone) 1 mg Route: IVP; Site: right antecubital; kd3 07:09 Follow up: Response: Pain is decreased bp 05:38 Drug: Phenergan (promethazine) 12.5 mg Route: IVP; Site: right antecubital; kd3 07:09 Follow up: Response: No adverse reaction bp 05:38 Drug: NS 0.9% 500 ml Route: IV; Rate: bolus; Site: right antecubital; kd3 07:09 Follow up: IV Status: Completed infusion; IV Intake: 500ml bp 06:35 CANCELLED (Duplicate Order): Cipro (ciprofloxacin) 250 mg PO once rudolph 07:05 Drug: Flomax (tamsulosin) 0.4 mg Route: PO; ha1 07:09 Follow up: Response: No adverse reaction bp 07:05 Drug: Rocephin (cefTRIAXone) 1 grams Route: IV; Rate: per protocol; Site: right ha1 antecubital; 08:31 Follow up: IV Status: Completed infusion; IV Intake: 50ml bp Disposition Summary: 01/13/22 06:37 Discharge Ordered Location: Home rudolph Problem: new rudolph Symptoms: have improved rudolph Condition: Stable rudolph Diagnosis - Hydronephrosis with renal and ureteral calculous obstruction rudolph - Hydronephrosis with ureteral stricture, not elsewhere classified rudolph - Gross hematuria rudolph - Hematuria, unspecified rudolph - Abdominal pain, Generalized rudolph Followup: rudolph - With: Private Physician - When: 2 - 3 days - Reason: Recheck today's complaints, Continuance of care, Re-evaluation by your physician Followup: rudolph - With: Tristan Moeller MD - When: 2 - 3 days - Reason: Recheck today's complaints, Re-evaluation by your physician Discharge Instructions: - Discharge Summary Sheet rudolph - Abdominal Pain, Adult rudolph - Hematuria, Adult rudolph - Kidney Stones rudolph - Kidney Stones, [id number] rudolph - Abdominal Pain, Adult, [id number]-[id number] rudolph - Hydronephrosis rudolph - Dietary Guidelines to Help Prevent Kidney Stones rudolph Forms: - Medication Reconciliation Form rudolph - Thank You Letter rudolph - Antibiotic Education rudolph - Prescription Opioid Use rudolph Prescriptions: - tamsulosin 0.4 mg Oral capsule - take 1 capsule by ORAL route once daily 1/2 hour following the same meal each rudolph day; 30 capsule; Refills: 0, Product Selection Permitted - Cipro 250 mg Oral Tablet - take 2 tablets by ORAL route every 12 hours; 20 tablet; Refills: 0, Product [facility] Selection Permitted - Zofran 4 mg Oral Tablet - take 1 tablet by ORAL route every 12 hours As needed; 20 tablet; Refills: 0, [facility] Product Selection Permitted - promethazine 25 mg Oral Tablet - take 1 tablet by ORAL route every 6 hours As needed; 20 tablet; Refills: 0, [facility] Product Selection Permitted - Tylenol-Codeine #3 300 mg-30 mg Oral - take 2 tablet by ORAL route every 6 hours; 24 tablet; Refills: 0, Product [facility] Selection Permitted Signatures: Dispatcher [employer] EDJustin Camacho MD MD cha Slawson, Ashby, RN RN as6 Juany Santiago RN RN kd3 Zainab Ecsamilla RN RN ha1 Jayy Wooten RN bp Corrections: (The following items were deleted from the chart) 06:35 06:35 Cipro (ciprofloxacin) 250 mg PO once ordered. [facility]
[2022-01-13 07:02] LABS: SARS-CoV-2 Antigen Rapid Res Negative (Negative)
[2022-01-13] MEDS ORDERED: CEFTRIAXONE 1000 MG/VIAL ONE (07:04)
[2022-01-13] MEDS ORDERED: TAMSULOSIN 0.4 MG SR CAP ONE (07:04)
[2022-01-13] MEDS ORDERED: NA CHLORIDE 0.9% 50 ML ONE (07:05)
[2022-01-13] MEDS ORDERED: HYDROMORPHONE HCL 1 MG/ML INJ ONE (07:31)
[2022-01-13 09:09] VITALS: O2SAT 98
[2022-01-13 09:14] VITALS: BP 117/66; TEMP 98
--- NOTE | 2022-01-13 17:24 | RAD REPORT ---
EXAM DESCRIPTION: CT - Abdomen Pelvis W Contrast - 01/13/2022 7:06 am CLINICAL HISTORY: 26 years Female RLQ abdominal pain TECHNIQUE: Axial CT imaging of the abdomen and pelvis was performed following the administration of intravenous contrast.. Oral contrast was not administered. Sagittal and coronal reconstructed image s were then performed. The CT study is performed according to ALARA (as low as reasonably achievabl e) or ALARA/IMAGE GENTLY, with automatic adjustment of mA and/or kV according to patient size. Performed on: 01/13/2022 at 5:17 AM. COMPARISON: CT abdomen and pelvis with IV contrast performed on 05/24/2021 FINDINGS: Lung bases: The lung bases are clear. Liver: The liver is normal in size and configuration. No focal hepatic abnormalities are identified. Liver attenuation is within normal limits. The hepatic and portal veins are patent. Spleen: The spleen is normal is size, configuration and attenuation. There is a 5 mm cyst in the supe rior lateral aspect of the spleen. Gallbladder and bile duct: The gallbladder is well distended and unremarkable. There is no biliary ductal dilatation. Pancreas: The pancreas is grossly normal in size and configuration. Adrenal Glands: The adrenal glands are normal in size and configuration. Kidneys: The kidneys are normal in size and configuration. There is mild right-sided hydronephrosis a nd hydroureter without evidence of a distal obstructing ureteral calculus. There is no significant pe rinephric or periureteral inflammation. Findings could be related to a recently passed calculus or mi ld distal ureteral stricture. There is bilateral punctate nonobstructing nephrolithiasis. No definite solid or cystic renal mass lesions are identified. Stomach: The stomach is grossly normal. There is no definite hiatal hernia. Bowel: The bowel gas pattern is non specific and non obstructive. Appendix: The appendix is normal. Free air: There is no evidence of free air. Free fluid: There is trace free fluid in the pelvis which may be physiologic in nature. Vasculature: The aorta is normal in caliber and contour. The inferior vena cava is grossly unremarkab le. Lymphadenopathy: No pathologic lymphadenopathy is identified. Bladder: The bladder is incompletely distended on this examination. Reproductive: The uterus is grossly within normal limits. Bones: No acute osseous abnormalities are identified. Soft tissues: No acute soft tissue abnormalities are identified. IMPRESSION: 1. Mild right-sided hydronephrosis and hydroureter without evidence of a distal obstru cting ureteral calculus. There is no significant perinephric or periureteral inflammation. Findings c ould be related to a recently passed calculus or mild distal ureteral stricture. 2. Bilateral punctate nonobstructing nephrolithiasis. 3. Trace free fluid in the pelvis which may be physiologic in nature. 4. Normal appendix. Electronically signed by: Aurea Lazo DO 01/13/2022 6:24 AM CDT Due to temporary technical issues with the PACS/Fluency reporting system, reports are being signed by the in house radiologists without review as a courtesy to insure prompt reporting. The interpreting radiologist is fully responsible for the content of the report.
== END 2022-01-13 08:31 | disposition home or self-care (01) ==
LOC: ER 02:40
DX: N13.2 Hydronephrosis with renal and ureteral calculous obstruction (principal); N13.1 Hydronephrosis with ureteral stricture, not elsewhere classified; R31.0 Gross hematuria; I10 Essential (primary) hypertension; Z88.8 Allergy status to other drugs, medicaments and biological substances; Z20.822 Contact with and (suspected) exposure to COVID-19
CPT/HCPCS: 85025; 36415; 83690; 80053; 74177; 99284; 87811; Q9967; J2550 ×2; J1170 ×2; J7030 ×2; J2405 ×2; 81003; 81015

== ENCOUNTER 2022-01-14 17:19 | Emergency (ER) | payer OTHER ==
--- OUTSIDE RECORDS SUMMARY | 2022-01-14 17:23 | XMS REPORT | Continuity of Care Document ---
:1995 Author Organization [facility] t Address [address] [place] [address] Care Team Providers Name Role Phone Sonny FELIX, Paz A Primary Care Physician [phone] PRASANNA VARGAS Attending Clinician Unavailable HUMBERTO FERNANDES Attending Clinician Unavailable Humberto Fernandes MD Attending Clinician Prasanna Vargas MD Attending Clinician Suzanna Carnes PA-C Attending Clinician SUZANNA CARNES Attending Clinician Unavailable Alissa Rosales Attending Clinician Kaycee Soares Attending Clinician Doctor Unassigned, [place] Attending Clinician Unavailable Krystle FELIX, Anna Ricketts Attending Clinician Delroy FELIX, Rad KPilarHPilar Attending Clinician Lopez Hitchcock MD Attending Clinician HUMBERTO FERNANDES Admitting Clinician Unavailable Payers Payer Name Policy Type Policy Number Effective Date Expiration Date [facility] [id number] 2019 MEDICAID 00:00:00 Problems Condition Condition Condition Status Onset Resolution Last Treating Co mments Source Name Details Category Date Date Treatment Clinician Date Breast Breast Disease Active Univers pain in pain in 12-17 ity of female female 00:00: [place] [address] Medical Branch Anxiety Anxiety Disease Active 2022-0 Univers disorder, disorder, 8-07 ity [place]spec[place] d type 00 Medical [place] Generalize Generalize Disease Active U nivers d anxiety d anxiety 4-20 ity of disorder disorder 00:00: [place] [facility] Nephrolith Nephrolith Disease Active U [...] nivers a a 2-01 ity of 00:00: [place] [facility] Anxiety Anxiety Disease Active Univers [...] d 2-19 00:00:00 21:27:31 ity of 00:00: [place] [facility] Sinus Sinus Disease Resolve 2019-052020-09-06 2020-09-06 Univers tachycardi tachycardi d 2- 00:00:00 21:27:34 ity of a a 00:00: [place] [facility] Insomnia, Insomnia, Disease Resolve 2020-09-06 [...] [place] and advice and advice 00 N[place] dical for for Branch contracept contracept bonifacio [...] of ligation ligation 00:00: [place] 00 Medical [place] Anxiety Anxiety Disease Resolve 2018-052020-01-05 2020-01-05 Univers during during d 2-05 00:00:00 22:37:53 [place] second 00 [facility] trimester, trimester, Br anch antepartum antepartum [...] Me dical born in born in [facility] hospital by by delivery delivery Normal Normal Disease Resolve 2019-08-13 2019-08-13 Univers labor labor d 3-10 00:00:00 16:34:03 ity of 00:00: [place] 00 [facility] 37 weeks 37 weeks Disease Resolve 2019-08-13 2019-08-13 Univers gestation gestation d 1-02 00:00:00 16:51:42 ity of of of 00:00: [place] 00 [facility] Gastroesop Gastroesop Disease Resolve 2018-052019-08-13 2019-08-13 Univers hageal hageal d 2- 00:00:00 16:33:48 [place]y of reflux in reflux in 00[place] [facility] Supervisio Supervisio Disease Resolve 2019-08-13 2019-08-13 Univers n of high n of high d 9 00:00:00 16:32:56 ity of risk risk 00:00: [place] 00 [facility] in third in third Branch trimester trimester Multiparit Multiparit Disease Resolve 2019-08-13 2019-08-13 Univers y y d 9 00:00:00 16:33:04 ity of 00:00: [place] 00 Medical Branch History of History of Disease Resolve 2019-08-13 2019-08-13 Univers d 9 00:00:00 16:33:12 ity of delivery delivery 00:00: [place] 00 Medical Branch History of History of Disease Resolve 2019-08-13 2019-08-13 Univers d 02-06 00:00:00 16:33:20 it y of section section 00:00: [place] 00 Medical Branch History of History of Disease Resolve 2019-08-13 2019-08-13 Univers d 02-06 00:00:00 16:33:21 ity of 00:00: [place] 00 Medical Branch IUGR IUGR Disease Resolve [...] , [place] antepartum antepartum 00 Nd dical Branch 39 weeks 39 weeks Disease [...] Stop Date Quantity Comments Source History [facility] o f Alcohol Std [place] [facility] Drinks Branch History [facility] o f Alcohol Binge [place] Medic al Branch History [facility]ly [facility] o f Alcohol Comment [place] Med ical Branch Exposure to 2021-12-29 2022-01-08 Not sure University of SARS-CoV-2 00:00:00 17:56:00 [facility] (event) Branch Alcohol intake 2021-12-17 2021-12-17 Ex-drinker University of 00:00:00 00:00:00 (finding) [place] [facility] Tobacco use and 2021-12-12 2021-12-12 Smokeless tobacco Un iversity of exposure 00:00:00 00:00:00 non-user [place] [facility] History SDOH 2019-02-06 2019-02-06 1 University o f Alcohol [facility] 00:00:00 [facility]00[facility] [place] Sex Assigned At [birth year] Universit y of 00:00:00 00:00:00 [facility] Smoking Status Start Date Stop Date Source Never smoked tobacco [facility] Medications Ordered Filled Start Stop Current Ordering Indication Dosage Frequency Signature Comments Components Source Medication Medication Date Date Medication? Clinician (SIG) Name Name ondansetron 2021- No 4mg 4 mg, Univ ers (ZOFRAN-ODT 01-09 Oral, ity of ) 01:45: 00:56 ONCE, 1 [place] disintegrat 00 :00 dose, On Medi yessi ing tablet [facility] 4 mg 01/08/22 at 2045, Routine HYDROcodone 2021- No 1{tbl} 1 tablet, Univers -acetaminop 01-09 Oral, ity of hen (NORCO 00:45: 00:37 ONCE, 1 [place] as 5) 5-325 mg 00 :00 dose, On Medi yessi tablet 1 [facility] tablet 01/08/22 at 1945, [place] diphenhydrA 2021- No 25mg 25 mg, Uni vers MINE 01-08 Slow IV ity of (BENADRYL) 23:45: 23:51 Push, [place] injection 00 :00 ONCE, 1 Medical 25 mg dose, On Branch [facility] 01/08/22 at 1845, STAT dexamethaso 2021- No 10mg 10 mg, Uni vers ne sod phos 01-08 Slow IV ity of PF 23:45: 23:50 Push, [place] injection 00 :00 ONCE, 1 Medical 10 mg dose, On Branch [facility] 01/08/22 at 1845, 1 mL ketorolac 2021- No 30mg 30 mg, Unive rs (TORADOL) 01-08 Slow IV ity of injection 23:45: 23:51 [place], [place] 30 mg 00 :00 ONCE, 1 Medical dose, On Branch [facility] 01/08/22 at 1845, [place] ondansetron Yes [id number] 4mg Take 1 Univers 4 mg 01-08 tablet by ity of disintegrat 00:00: mouth [place] ing tablet 00 every 8 Medica l (eight) Branch hours as needed for Nausea and Vomiting (N/V). acetaminoph Yes [id number] 650mg Take 1 Univers en (TYLENOL 8-29 tablet by ity of ARTHRITIS 00:00: mouth [place] PAIN) 650 00 every 8 Medical mg CR (eight) Branch tablet hours as needed for Pain. ketorolac 0 Yes [id number] 10mg Take 1 U nivers 10 mg 8-29 tablet by ity of tablet 00:00: mouth [place] 00 every 6 Medical (six) Branch hours as needed for Pain (scale 4-6) or Pain (scale 7-10). metaxalone 0 Yes [id number] 800mg Take 1 Univers (SKELAXIN) 8-29 tablet [...] mouth. ity of supp. no.8 15:08: 00:00 [place] (TRAZAMINE 46 :00 Medical ORAL) Branch diphenhydrA 0 Yes 25mg Take 25 mg Univers MINE 25 mg 12-12 by mouth ity o f capsule 13:03: every 6 [place] 04 (six) Medical hours as Branch needed for Allergies. carbamazepi 0 Yes Take by Uni vers ne 12-12 mouth. ity of (TEGRETOL 13:03: [place] ORAL) 04 Medical Branch citalopram 0 Yes Take by Univ ers hydrobromid 12-12 mouth. ity of e 13:03: [place] (CITALOPRAM 04 Medical ORAL) Branch ALBUTEROL 0 Yes Univers INHALE 12-12 ity of 13:03: [place] 04 Medical Branch diphenhydrA 2021-0 Yes 25mg Take 25 mg Univers MINE 25 mg 02 by mouth ity o f capsule 13:03: every 6 [place] 04 (six) Medical hours as Branch needed for Allergies. carbamazepi Yes Take by Uni vers ne 8- mouth. ity of (TEGRETOL 13:03: [place] ORAL) Medical Branch citalopram Yes Take by Univ ers hydrobromid 8- mouth. ity of e 13:03: [place] (CITALOPRAM 04 Medical ORAL) Branch ALBUTEROL Yes Univers INHALE 12-12 ity of 13:03: [place] 04 Medical Branch traZODone Yes [id number] 50mg Take 1 U nivers 50 mg 8-02 tablet by ity of tablet 00:00: mouth at [place] [address] bedtime. Medical Branch SERTraline Yes [id number] 50mg Take 1 Univers (ZOLOFT) 50 8-02 tablet by ity of mg tablet 00:00: mouth in [facility] 00 the Medical morning. Branch traZODone Yes [id number] 50mg Take 1 U nivers 50 mg 8-02 tablet by ity of tablet 00:00: mouth at [place] [address] bedtime. Medical Branch SERTraline Yes [id number] 50mg Take 1 Univers (ZOLOFT) 50 8-02 tablet by ity of mg tablet 00:00: mouth in [facility] 00 the Medical morning. Branch sulfamethox 2021- No [id number] 1{tbl} Take 1 Univers azole-trime - 08-06 tablet by it y of thoprim 00:00: 04:59 mouth in [place] (BACTRIM 00 :00 the Medical DS) 800-160 morning Branc h mg per and 1 tablet tablet in the evening. Do all this for 3 days. ibuprofen Yes [id number] 600mg Take 1 Univers 600 mg 7-15 tablet by ity of tablet 00:00: mouth [place] 00 every 6 Medical (six) Branch hours as needed for Pain (scale 4-6). ibuprofen Yes [id number] 600mg Take 1 Univers 600 mg 7-15 tablet by ity of tablet 00:00: mouth [place] [address] every 6 Medical (six) Branch hours as needed for Pain (scale 4-6). acetaminoph 2021- No [id number] 1{tbl} Take 1 U nivers en-codeine 7-15 08-02 tablet by ity of 300-30 mg 00:00: 00:00 mouth [place] tablet 00 :00 every 4 Medical (four) Branch hours as needed for Pain (scale 4-6). Indication s: acute pain bromphenira 2021-0 Yes [id number] 5mL Take 5 mL Univers mine-pseudo 7-09 by mouth 4 it y of ephedrine-D 00:00: (four) [place] M (BROMFED 00 times Medical DM) 2-30-10 daily as Bran ch mg/5 mL needed for syrup Congestion /Allergies or Cough. naproxen 2021-0 Yes [id number] 500mg Take 1 U nivers 500 mg 7-09 tablet by ity of tablet 00:00: mouth [place] 00 every 8 Medical (eight) Branch hours as needed for Pain (scale 4-6). cyclobenzap 2021-0 Yes [id number] 10mg Take 1 Univers rine 10 mg 7-09 tablet by ity of tablet 00:00: mouth at [place] 00 bedtime as Medical needed for Branch Muscle Spasms. bromphenira 2021-0 Yes [id number] 5mL Take 5 mL Univers mine-pseudo 7-09 by mouth 4 it y of ephedrine-D 00:00: (four[place] M (BROMFED 00 times Medical DM) 2-30-10 daily as Bran ch mg/5 mL needed for syrup Congestion /Allergies or Cough. naproxen 2021-0 Yes [id number] 500mg Take 1 U nivers 500 mg 7-09 tablet by ity of tablet 00:00: mouth [place] 00 every 8 Medical (eight) Branch hours as needed for Pain (scale 4-6). cyclobenzap 2021-0 Yes [id number] 10mg Take 1 Univers rine 10 mg 7-09 tablet by ity of tablet 00:00: mouth at [place] 00 bedtime as Medical needed for Branch Muscle Spasms. ibuprofen 2021-0 Yes [id number] 605mg Take 30.25 Univers 100 mg/5 mL 6-15 mL by ity of oral 00:00: mouth [place] suspension 00 every 6 Medica l (six) Branch hours as needed for Pain (scale 4-6) or Temp > 38.5 C. ibuprofen 2022-0 Yes [id number] 605mg Take 30.25 Univers 100 mg/5 mL 6-15 mL by ity of oral 00:00: mouth [place] suspension 00 every 6 Medica l (six) Branch hours as needed for Pain (scale 4-6) or Temp > 38.5 C. acetaminoph 2021- No [id number] 608mg Take 19 mL Univers en 160 [...] 00 :00 Medical Branch mometasone 0 Yes [id number] 1{spray Use 1 Univers 50 5-19 } [place] in ity of mcg/actuati 00:00: each [place] on nasal 00 nostril 2 Medica l spray (two) Branch times daily. mometasone 0 Yes [id number] 1{spray Use 1 Univers 50 5-19 } [place] in ity of mcg/actuati 00:00: each [place] on nasal 00 nostril 2 Medica l spray (two) Branch times daily. cetirizine Yes [id number] 10mg Take 1 U nivers (ZYRTEC) 10 5-16 tablet by ity of mg tablet 00:00: mouth 00 daily. Medical Branch cetirizine 0 Yes [id number] 10mg Take 1 U nivers (ZYRTEC) 10 [...] 30 mg - ity of capsule 00:00: [place] [facility] gabapentin 2021-0 Yes Univers 300 mg - ity of capsule 00:00: [place] [facility] ondansetron 2021-0 Yes Univer s 4 mg tablet 09-18 ity of 00:00: [place] [facility] amLODIPine 2021-0 Yes Univers 5 mg tablet 09-01 ity of 00:00: [place] [facility] amLODIPine 2021-0 Yes 5mg Take 5 mg Un sushant 5 mg tablet 22 by mouth. ity of 00:00: [place] [facility] amLODIPine 2021-0 Yes Univers 5 mg tablet 09-01 ity of 00:00: [place] [facility] amLODIPine 2021-0 Yes 5mg Take 5 mg Un sushant 5 mg tablet 09-01 by mouth. ity of 00:00: [place] [facility] buPROPion 0 Yes Univers XL [...] by ity of tablet 00:00: mouth 2 [place] (two) Medical times Branch daily with meals. losartan 50 2020-05 Yes 50mg Take 1 Univ ers mg tablet 2-30 tablet by ity o f 00:00: mouth 2 [place] (two) Medical times Branch daily. carvediloL 2020-05 Yes 25mg Take 1 Unive rs 25 mg 2-30 tablet by ity of tablet 00:00: mouth 2 [place] (two) Medical times Branch daily with meals. 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 500mg Take 1 Univers oL 4-08 [...] Immunizations Ordered Filled Immunization Date Status Comments [facility] e Immunization Name Name Influenza Virus 2021-06-11 Completed Universit y of Vaccine 00:00: [facility] Influenza Virus 2021-06-11 Completed Universit y of Vaccine 00:00:00 [facility] Influenza Virus 2020-05-19 Completed Universit y of Vaccine 00:00:00 [facility] Influenza Virus 2020-05-19 Completed Universit y of Vaccine 00:00:00 [facility] Influenza Virus 2020-05-19 Completed Universit y of Vaccine 00:00:00 [facility] Influenza Virus 2020-05-16 Completed Universit y of Vaccine Recomb Quad 00:00:00 [facility] IM, Preserv and ABX Branc h Free 18-64 YRS Influenza Virus 2020-05-16 Completed Universit y of Vaccine Recomb Quad 00:00:00 [place] [facility] IM, Preserv and ABX Branc h Free 18-64 YRS Influenza Virus 2020-05-16 Completed Universit y of Vaccine Recomb Quad 00:00:00 [facility] IM, Preserv and ABX Branc h Free 18-64 YRS TDAP (ADACEL) 2019-05-21 Completed University of VACCINE 00:00:00 [facility] TDAP (ADACEL) 2019-05-21 Completed University of VACCINE 00:00:00 [facility] TDAP (ADACEL) 2019-05-21 Completed University of VACCINE 00:00:00 [facility] Influenza Virus 2019-02-06 Completed Universit y of Vaccine Quad .5 mL 00:00:00 [place] [facility] IM 6+ MO Branch Influenza Virus 2019-02-06 Completed Universit y of Vaccine Quad .5 mL 00:00:00 [place] [facility] IM 6+ MO Branch Influenza Virus 2019-02-06 Completed Universit y of Vaccine Quad .5 mL 00:00:00 [facility] IM 6+ MO Branch Vital Signs Vital Name Observation Time Observation Value Comments Source Systolic blood 2022-01-09 00:37:11 127 mm[Hg] Univer sity of pressure [facility] Diastolic blood 2022-01-09 00:37:11 90 mm[Hg] Unive rsity of pressure [facility] Heart rate 2022-01-09 00:37:11 94 /min Universi ty of [facility] Body temperature 2022-01-09 00:37:11 37.11 Irene [facility] [place] [facility] ersity of [facility] Respiratory rate 2022-01-09 00:37:11 16 /min [facility] Oxygen saturation in 2022-01-09 00:37:11 97 /min [facility] Arterial blood by [facility] Pulse oximetry Branch Body height 2022-01-08 23:03:00 154.9 cm Universi ty of [place] [facility] [place] Body weight 2022-01-08 23:03:00 58.06 kg Universi ty of [facility] BMI 2022-01-08 23:03:00 24.19 kg/m2 Universi ty of [facility] Systolic blood 2021-12-12 18:00:00 126 mm[Hg] Univer sity of pressure [facility] Diastolic blood 2021-12-12 18:00:00 87 mm[Hg] Unive rsity of pressure [facility] Heart rate 2021-12-12 18:00:00 86 /min Universi ty of [place] [facility] [place] Body temperature 2021-12-12 18:00:00 36.89 Irene Univ ersity of [facility] Respiratory rate 2021-12-12 18:00:00 18 /min Univ ersity of [facility] Body height 2021-12-12 18:00:00 154.9 cm Universi ty of [place] [facility] [place] Body weight 2021-12-12 18:00:00 57.153 kg Universi ty of [place] [facility] [place] BMI 2021-12-12 18:00:00 23.81 kg/m2 [facility] Procedures Procedure Date / Time Performed Performing Clinician Sourc e XR CERVICAL SPINE 4 VW 2022-01-09 00:29:16 Dom Humberto [facility] XR LUMBAR SPINE 4 VW 2022-01-09 00:29:16 Humberto Fernandes [facility] XR SPINE THORACIC 3 VW 2022-01-09 00:29:16 Dom [facility] URINALYSIS 2022-01-08 23:50:00 Humberto Fernandes [facility] CONSENT/REFUSAL FOR 2022-01-08 22:51:08 Doctor Unassigned, No Un [facility] DIAGNOSIS AND Name Medical Branch TREATMENT GALV ONLY - VAGINAL 2021-12-12 18:37:00 Prasanna Vargas [facility] PATHOGENS BY NUCLEIC Medical [facility] ACID TESTING URINE CULTURE 2021-12-12 18:32:00 Vargas [facility] o f [facility] POCT TEST 2021-12-12 18:31:00 [facility] Prasanna [facility] POCT URINALYSIS W/O 2021-12-12 18:31:00 [facility] SPECIFIC GRAVITY [facility] Plan of Care Planned Activity Planned Date Details Comments Source Future Scheduled 2029-05-21 DTaP,Tdap,and Td [facility] Test 00:00:00 Vaccines (2 - Td) Medical Br anch [code = DTaP,Tdap,and Td Vaccines (2 - Td)] Future Scheduled 2021-09-06 Depression screening Uni [facility] Test 00:00:00 (procedure) [code = Medical Branch 070566383] Future Scheduled 2016-02-19 Screening for [facility] Test 00:00:00 malignant neoplasm Medical B ranch of cervix (procedure) [code = 130254171] Future Scheduled 2013 Hepatitis C [facility] Test 00:00:00 screening Medical Branch (procedure) [code = 552788385] Future Scheduled 2011 SARS-CoV-2 [facility] Test 00:00:00 (COVID-19) Vaccine Medical B ranch (1) [code = SARS-CoV-2 (COVID-19) Vaccine (1)] Future Scheduled 2006 HPV VACCINES (1 - Univer [facility] Test 00:00:00 2-dose series) [code Medical Branch = HPV VACCINES (1 - 2-dose series)] Encounters Start End Encounter Admission Attending Care Care Encounter Source Date/Time Date/Time Type Type Clinicians Facility Department ID 2022-12-12 2022-12-12 Outpatient R PRASANNA VARGAS [facility] [id number] Univers 09:30:00 09:30:[id number] [facility] 2022-01-08 2022-01-08 Emergency X DOM [facility] ERT [id number] Univers 18:04:00 20:09:00 HUMBERTO [facility] 2022-01-08 2022-01-08 [facility] [id number] Univers 18:04:00 20:09:00 Humberto LAWSON [id number] [facility] [id number] [id number] [address] 2021-12-12 2021-12-12 Office Prasanna Vargas [facility] [id number] Univers 13:30:00 13:40:21 Visit Suzanna Carnes [id number] ankush [facility] [id number] PROFESS[place] [id number] Nd dical [facility] 134 Branch BUILDING 2021-12-12 2021-12-12 Outpatient Farzana CARNES [facility] [id number] Univers 13:30:00 13:40:21 SUZANNA lechuga [facility] 2020-11-10 2020-11-10 Urgent Lukelsey, Alissa [facility] [id number] 18:42:46 19:53:43 [facility] [id number] [place] [id number] Professio [id number] nal [address] 2020-10-31 2020-10-31 Emergency Kaycee Méndez [facility] [id number] 18:52:00 22:15:00 Sharlene [place] [id number] [place] [id number] [place] [id number] 2020-10-31 2020-10-31 Orders Doctor JORDAN [id number] 00:00:00 00:00:00 Only Unassigned, YAZMIN [id number] [facility] 4.2.7.2.686 [id number] 2020-10-20 2020-10-20 Emergency Kaycee Méndez [facility] [id number] 14:02:00 17:13:00 Sharlene Lawson [id number] [place] [id number] [place] [id number] 2020-10-14 2020-10-14 Hospital Prasanna Vargas [facility] [id number] 10:00:00 23:59:00 Encounter Jm Lawson [id number] [place] [id number] [place] [id number] 2020-10-09 2020-10-09 Emergency Krystle [facility] [id number] 12:00:00 15:57:00 Anna Lawson [id number] [place] [id number] [place] [id number] 2020-10-06 2020-10-06 Office Prasanna Vargas [facility] [id number] 08:53:00 09:46:44 Visit Jm Lawson [id number] [place] [id number] Professio [id number] [address] 2020-03-04 2020-03-04 RefLopez Centeno [facility] [id number] 00:00:00 00:00:00 MULTISPEC [id number] [place]AL[place] [id number] [place] [id number] AND ERIBERTO [facility] Results Test Description Test Time Test Comments Results Result Comments Source POCT TEST 2021-12-12 18:31:00 Test Item Value Reference Range Interpretation Comme nts POCT PREG (test code = 1605) Negative On board controls acceptable with C Line (test code = 3574) Yes POCT PREG LOT # (test code = 3575) POCT PREG TEST DATE (test code = 3576) [facility] SPECIFIC [id number] 18:31:00 Test Item Value Reference Range Interpretation [...] code = 3257) Trace Negative - Negative [facility]
--- NOTE | 2022-01-14 18:00 | EDPHYS ---
Physician Documentation [facility] Name: Natanael Dyson Age: 26 yrs Sex: Female : 1995 Arrival Date: 01/14/2022 Time: 17:21 Bed 16 Private MD: ED Physician Miquel Rios HPI: 01/14 17:39 This 26 yrs old Female presents to ER via Unassigned with complaints of kidney snw stones/can hardly walk. 17:39 The patient complains of pain in the right mid back. The pain radiates to the right snw lower quadrant. Onset: The symptoms/episode began/occurred suddenly, yesterday. Associated signs and symptoms: Pertinent positives: persistent pain, "balling my eyes out" has given me a migraine. Severity of pain: At its worst the pain was moderate severe. The patient has experienced similar episodes in the past. The patient has been recently seen by a physician: The patient has been recently seen at the [facility] Emergency Department, yesterday. Historical: - Allergies: 18:15 Compazine; bp 18:15 Reglan; bp - Home Meds: 18:15 Depakote Oral [Active]; bp - PMHx: 18:15 Hypertension; Migraine; bp - PSHx: 18:15 tubal ligation; bp - Immunization history:: Adult Immunizations unknown. - Social history:: Smoking status: unknown. ROS: 17:38 Constitutional: Negative for fever, chills, and weight loss, Eyes: Negative for injury, snw pain, redness, and discharge, ENT: Negative for injury, pain, and discharge, Neck: Negative for injury, pain, and swelling, Cardiovascular: Negative for chest pain, palpitations, and edema, Respiratory: Negative for shortness of breath, cough, wheezing, and pleuritic chest pain, : Negative for injury, bleeding, discharge, and swelling, MS/Extremity: Negative for injury and deformity, Skin: Negative for injury, rash, and discoloration, Neuro: Negative for headache, weakness, numbness, tingling, and seizure. 17:38 Abdomen/GI: Positive for abdominal pain, nausea and vomiting, of the right lower quadrant. 17:38 Back: Positive for flank pain, on the right. Exam: 17:37 Constitutional: This is a well developed, well nourished patient who is awake, alert, snw and in no acute distress. Head/Face: Normocephalic, atraumatic. Eyes: Pupils equal round and reactive to light, extra-ocular motions intact. Lids and lashes normal. Conjunctiva and sclera are non-icteric and not injected. Cornea within normal limits. Periorbital areas with no swelling, redness, or edema. ENT: Nares patent. No nasal discharge, no septal abnormalities noted. Tympanic membranes are normal and external auditory canals are clear. Oropharynx with no redness, swelling, or masses, exudates, or evidence of obstruction, uvula midline. Mucous membranes moist. Neck: Trachea midline, no thyromegaly or masses palpated, and no cervical lymphadenopathy. Supple, full range of motion without nuchal rigidity, or vertebral point tenderness. No Meningismus. Chest/axilla: Normal chest wall appearance and motion. Nontender with no deformity. No lesions are appreciated. Cardiovascular: Regular rate and rhythm with a normal S1 and S2. No gallops, murmurs, or rubs. Normal PMI, no JVD. No pulse deficits. Respiratory: Lungs have equal breath sounds bilaterally, clear to auscultation and percussion. No rales, rhonchi or wheezes noted. No increased work of breathing, no retractions or nasal flaring. Back: No spinal tenderness. No costovertebral tenderness. Full range of motion. Skin: Warm, dry with normal turgor. Normal color with no rashes, no lesions, and no evidence of cellulitis. MS/ Extremity: Pulses equal, no cyanosis. Neurovascular intact. Full, normal range of motion. Neuro: Awake and alert, GCS 15, oriented to person, place, time, and situation. Cranial nerves II-XII grossly intact. Motor strength 5/5 in all extremities. Sensory grossly intact. Cerebellar exam normal. Normal gait. 17:37 Abdomen/GI: Inspection: abdomen appears normal, Bowel sounds: normal, Palpation: moderate abdominal tenderness, in the right lower quadrant. Vital Signs: 17:30 BP 115 / 79; Pulse 87; Resp 16; Temp 98; Pulse Ox 99% ; bp MDM: 17:34 Patient medically screened. snw 18:00 Data reviewed: vital signs, nurses notes. Data interpreted: Pulse oximetry: on room air snw is 99 %. Interpretation: normal. Counseling: I had a detailed discussion with the patient and/or guardian regarding: the historical points, exam findings, and any diagnostic results supporting the discharge/admit diagnosis, to return to the emergency department if symptoms worsen or persist or if there are any questions or concerns that arise at home. Response to treatment: the patient's symptoms have mildly improved after treatment. Administered Medications: 17:50 Drug: Dilaudid (HYDROmorphone) 1 mg Route: IM; Site: left deltoid; bp 18:17 Follow up: Response: No adverse reaction; Pain is decreased bp 17:50 Drug: Phenergan (promethazine) 25 mg Route: IM; Site: right deltoid; bp 18:17 Follow up: Response: No adverse reaction; Pain is decreased bp Disposition: 18:29 Co-signature as Attending Physician, Miquel Rios MD I agree with the assessment and kdr plan of care. Disposition Summary: 01/14/22 18:00 Discharge Ordered Location: Home snw Condition: Stable snw Diagnosis - Unspecified renal colic snw Followup: snw - With: Emergency Department - When: As needed - Reason: Worsening of condition Followup: snw - With: Private Physician - When: 2 - 3 days - Reason: Recheck today's complaints, Continuance of care, Re-evaluation by your physician Discharge Instructions: - Discharge Summary Sheet snw - Renal Colic snw - Dietary Guidelines to Help Prevent Kidney Stones snw - Rehydration, Adult snw Forms: - Medication Reconciliation Form snw - Thank You Letter snw - Antibiotic Education snw - Prescription Opioid Use snw Signatures: Miquel Rios MD MD kdr Waters, Shelly, FNP-C DENTAL RECEPTIONIST-Csnw Jayy Wooten, RN RN bp
[2022-01-14] MEDS ORDERED: PROMETHAZINE INJ 25 MG/ML AMP ONE (18:02)
[2022-01-14] MEDS ORDERED: HYDROMORPHONE HCL 1 MG/ML INJ ONE (18:03)
--- NOTE | 2022-01-14 18:22 | ER ---
Nurse's Notes [facility] Name: Natanael Dyson Age: 26 yrs Sex: Female : 1995 Arrival Date: 01/14/2022 Time: 17:21 Bed 16 Private MD: Diagnosis: Unspecified renal colic Presentation: 01/14 17:30 Chief complaint: Patient states: EXACERBATION OF KIDNEY STONE PAIN. Coronavirus screen: bp At this time, the client does not indicate any symptoms associated with coronavirus-19. Ebola Screen: No symptoms or risks identified at this time. Initial Sepsis Screen: Does the patient meet any 2 criteria? No. Patient's initial sepsis screen is negative. Does the patient have a suspected source of infection? No. Patient's initial sepsis screen is negative. Risk Assessment: Do you want to hurt yourself or someone else? Patient reports no desire to harm self or others. Onset of symptoms is unknown. 17:30 Method Of Arrival: Ambulatory bp 17:30 Acuity: THIERNO 4 bp Triage Assessment: 17:30 General: Appears distressed, uncomfortable, Behavior is cooperative, appropriate for bp age, anxious. 17:30 Pain: Complains of pain in right mid back and right lower quadrant. EENT: No deficits bp noted. Neuro: No deficits noted. Cardiovascular: No deficits noted. Respiratory: No deficits noted. GI: No signs and/or symptoms were reported involving the gastrointestinal system. : No signs and/or symptoms were reported regarding the genitourinary system. Derm: No deficits noted. Musculoskeletal: No deficits noted. Historical: - Allergies: 18:15 Compazine; bp 18:15 Reglan; bp - Home Meds: 18:15 Depakote Oral [Active]; bp - PMHx: 18:15 Hypertension; Migraine; bp - PSHx: 18:15 tubal ligation; bp - Immunization history:: Adult Immunizations unknown. - Social history:: Smoking status: unknown. Screenin:30 Abuse screen: Denies threats or abuse. Denies injuries from another. Nutritional bp screening: No deficits noted. Tuberculosis screening: No symptoms or risk factors identified. Fall Risk None identified. Assessment: 17:30 General: SEE TRIAGE NOTE. bp 18:18 Reassessment: Patient states symptoms have improved. bp Vital Signs: 17:30 BP 115 / 79; Pulse 87; Resp 16; Temp 98; Pulse Ox 99% ; bp ED Course: 17:21 Patient arrived in ED. am2 17:30 Arm band placed on. bp 17:30 Patient has correct armband on for positive identification. Bed in low position. Call bp light in reach. Side rails up X2. 17:34 Christ[facility] Rojas F[facility]-C [facility]. snw 17:34 Miquel Rios MD is Attending Physician. snw 17:49 Jayy Wooten, RN is Primary Nurse. bp 18:15 Triage completed. bp 18:17 No provider procedures requiring assistance completed. Patient did not have IV access bp during this emergency room visit. Administered Medications: 17:50 Drug: Dilaudid (HYDROmorphone) 1 mg Route: IM; Site: left deltoid; bp 18:17 Follow up: Response: No adverse reaction; Pain is decreased bp 17:50 Drug: Phenergan (promethazine) 25 mg Route: IM; Site: right deltoid; bp 18:17 Follow up: Response: No adverse reaction; Pain is decreased bp Medication: 17:30 VIS not applicable for this client. bp Outcome: 18:00 Discharge ordered by . snw 18:17 Discharged to home ambulatory. bp 18:17 Condition: stable 18:17 Discharge instructions given to patient, Instructed on discharge instructions, follow up and referral plans. Demonstrated understanding of instructions, follow-up care. 18:21 Patient left the ED. bp Signatures: Christy Rojas FNP-C M[employer] ROOM TELLER-Csnw Ileana Suarez am2 Jayy Wooten, RN RN bp
[2022-01-14 20:05] VITALS: BP 115/79; TEMP 98; O2SAT 99
== END 2022-01-14 18:21 | disposition home or self-care (01) ==
LOC: ER 17:19
DX: N23 Unspecified renal colic (principal); I10 Essential (primary) hypertension; Z88.8 Allergy status to other drugs, medicaments and biological substances
CPT/HCPCS: 96372; 99283; J2550; J1170

== ENCOUNTER 2022-01-19 16:13 | Emergency (ER) | payer OTHER ==
--- OUTSIDE RECORDS SUMMARY | 2022-01-19 16:22 | XMS REPORT | Continuity of Care Document ---
:1995 Author Organization [facility] t Address [address] [place] [address] Care Team Providers Name Role Phone Sonny FELIX, Paz Cannon Primary Care Physician [phone] PRASANNA VARGAS Attending Clinician Unavailable VIJAY BARILLAS Attending Clinician Unavailable BERNARDO LEVY Attending Clinician Unavailable Jayy Kennedy MD Attending Clinician Bernardo Levy MD Attending Clinician Lrary Larry Attending Clinician Maura Cox MD Attending Clinician MAURA COX Attending Clinician Unavailable HUMBERTO FERNANDES Attending Clinician Unavailable Humberto Fernandes MD Attending Clinician Prasanna Vargas MD Attending Clinician Suzanna Carnes PA-C Attending Clinician SUZANNA CARNES Attending Clinician Unavailable Alissa Rosales Attending Clinician Kaycee Soares Attending Clinician Doctor Unassigned, [place] Attending Clinician Unavailable Krystle FELIX, nAna Ricketts Attending Clinician Delroy FELIX, Rad KPilarHPilar Attending Clinician Lopez Hitchcock MD Attending Clinician MAURA COX Admitting Clinician Unavailable HUMBERTO FERNANDES Admitting Clinician Unavailable Payers Payer Name Policy Type Policy Number Effective Date Expiration Date Robert denis [facility]RISTIANSON [facility] [id number] 2019 MEDICAID 00:00:00 Problems Condition Condition Condition Status Onset Resolution Last Treating Co mments Source Name Details Category Date Date Treatment Clinician Date Breast Breast Disease Active Univers pain in pain in 12-17 ity of female female 00:00: Medical Branch Anxiety Anxiety Disease Active Univers disorder, disorder, 12-17 ity of unspecifie [place] d type d type Medical Branch Generalize Generalize Disease Active U nivers d anxiety d anxiety 4-20 ity of disorder disorder 00:00: Medical Branch Nephrolith Nephrolith Disease Active U [...] pain 4-27 ity of 00:00: Medical Branch Trouble in Trouble in Disease Active U nivers sleeping sleeping 4- ity of 00:00: [place] 00 Medical [facility] Abdominal Abdominal [...] [place] and advice and advice 00 Ia dical for for Branch contracept contracept bonifacio bonifacio management management Routine Routine Disease Resolve 2020-01-05 2020-01-05 Univers d 4-02 00:00:00 22:37:57 [place] [facility] Back pain Back pain Disease Resolve 2020-01-05 2020-01-05 Univers d 4-02 00:00:00 22:37:59 ity of 00:00: [place] 00 [facility] History of History of Disease Resolve 2018-052020-01-05 2020-01-05 Univers tubal tubal d - 00:00:00 22:37:56 ity of ligation ligation 00:00: [place] 00 [facility] Anxiety Anxiety Disease Resolve 2018-052020-01-05 2020-01-05 Univers during during d 2- 00:00:00 22:37:53 [place] second 00 [facility] trimester, trimester, Br anch antepartum antepartum [...] 00 Me dical born in born in [facility] hospital by by delivery delivery Normal Normal Disease Resolve 2019-08-13 2019-08-13 Univers labor labor d 3-10 00:00:00 16:34:03 ity of 00:00: [place] 00 [facility] 37 weeks 37 weeks Disease Resolve 2019-08-13 2019-08-13 Univers gestation gestation d 1-02 00:00:00 16:51:42 ity of of of 00:00: [place] 00 [facility] Gastroesop Gastroesop Disease Resolve 2018-052019-08-13 2019-08-13 Univers hageal hageal d 2- 00:00:00 16:33:48 it[place] of reflux in reflux in 00[place] [facility] Supervisio Supervisio Disease Resolve 2019-08-13 2019-08-13 Univers n of high n of high d 9-27 00:00:00 16:32:56 ity of risk risk 00:00: [place] 00 Medi yessi in third in third Branch trimester trimester Multiparit Multiparit Disease Resolve 2019-08-13 2019-08-13 Univers y y d 02-06 00:00:00 16:33:04 ity of 00:00: [place] 00 Medical Branch History of History of Disease Resolve 2019-08-13 2019-08-13 Univers d 02-06 00:00:00 16:33:12 ity of delivery delivery 00:00: [place] 00 Medical Branch History of History of Disease Resolve 2019-08-13 2019-08-13 Univers d 02-06 00:00:00 16:33:20 it y of section section 00:00: [place] 00 Medical Branch History of History of Disease Resolve 2019-08-13 2019-08-13 Univers d 02-06 00:00:00 16:33:21 ity of 00:00: [place] 00 Medical Branch IUGR IUGR Disease Resolve [...] d 2-11 00:00:00 12:41:46 ity of 00:00: [place] 00 Medical Branch Upper Upper Disease Resolve [...] Medical Bran ch Previous Previous Disease Resolve 2019-07-212019-07-21 Univers d 1-19 00:00:00 12:42:55 it y [...] , [place]:00[place] antepartum antepartum 00 Ia dical Branch 39 weeks 39 weeks Disease Resolve 2019-05-30 2019-05-30 Univers gestation gestation d 1-17 00:00:00 21:44:45 ity of of of 00:00: [place] 00 [facility] Branch Disease Resolve 2019-05-28 2019-05-29 Univers [...] ents Source Name Type Date Date Clinician METOCLOP DRUG Active Low Anxiety Univers RAMIDE INGREDI 8-29 ity of 00:00: [place] 00 Medical Branch Metoclop Propensi Active Anxiety Unive rs ramide ty to 01-08 ity of adverse 00:00: [place] reaction 00 Medical s Branch Metoclop Propensi Active Anxiety Unive rs ramide ty to 01-08 ity of adverse 00:00: [place] reaction 00 Medical s to Branch drug Haloperi Propensi Active Other - See Patient Univers dol ty to comments 07-15 states it ity o f Lactate adverse 00:00: makes her [place] reaction 00 anxious Medical s and mean Branch Prometha Propensi Active Hallucinatio Univers zine ty to ns 2 ity of adverse 00:00: [place] reaction 00 Medical s Branch Prochlor Propensi Active Anxiety 2020- Tolerates Un sushant perazine ty to 05-29 promethaz ity o f adverse 00:00: ine [place] reaction 00 Medical s to Branch drug PROCHLOR DRUG Active Low Anxiety 2020- Univers PERAZINE INGREDI 05-29 ity of 00:00: [place] 00 Medical Branch Prochlor Propensi Active Anxiety 2020-0 Unive rs perazine ty to 1- ity of adverse 00:00: [place] reaction 00 Medical s Branch Latex Propensi Active Rash 2020-1 Univers ty to 2 ity of adverse 00:00: [place] reaction 00 Medical s Branch LATEX DRUG Active Low Rash 2020-1 Univers INGREDI 2- ity of 00:00: [place] 00 Medical Branch [...] Alcohol Binge [place] [facility] History SDOH University o f Alcohol Comment [place] Med ical Branch Alcohol intake 2022-01-18 2022-01-18 Ex-drinker University 00:00:00 00:00:00 (finding) [facility] Exposure to 2022-01-05 2022-01-15 Not sure University SARS-CoV-2 00:00:00 10:37:00 [facility] (event) Branch Tobacco use and 2021-12-12 2021-12-12 Smokeless tobacco Un iversity of exposure 00:00:00 00:00:00 non-user [facility] History SDOH 2019-02-06 2019-02-06 1 University o f Alcohol Frequency 00:00:00 00:00:00 [facility] [place] [facility] [place] Sex Assigned At [birth year] Universit y of 00:00:00 00:00:00 [place] [facility] Smoking Status Start Date Stop Date Source Never smoked tobacco [facility] Medications Ordered Filled Start Stop Current Ordering Indication Dosage Frequency Signature Comments Components Source Medication Medication Date Date Medication? Clinician (SIG) Name Name morpHINE (2 2021- No 4mg 4 mg, Slow Univers mg/mL) 01-18 IV Push, ity of injection 4 15:15: 14:49 ONCE, 1 [place] mg 00 :00 dose, On Medical [facility] 01/18/22 Branch at 1015, STAT ondansetron No 4mg 4 mg, Slow Univers (ZOFRAN 01-18 IV Push, ity of (PF)) 13:30: 13:33 ONCE, 1 [place] injection 4 00 :00 dose, On Medi yessi mg [facility] 01/18/22 Branch at 0830, [place] morpHINE (4 2021- No 4mg 4 mg, Slow Univers mg/mL) 01-18 IV Push, ity of injection 4 13:30: 13:34 ONCE, 1 [place] mg 00 :00 dose, On Medical [facility] 01/18/22 Branch at 0830, STAT morpHINE (4 2021- No 4mg 4 mg, Slow Univers mg/mL) 01-18 IV Push, ity of injection 4 12:30: 11:39 ONCE, 1 [place] mg 00 :00 dose, On Medical [facility] 01/18/22 Branch at 0730, STAT famotidine 2021- No 20mg 20 mg, Univ ers (PEPCID 01-18 Slow IV ity of (PF)) 11:30: 10:52 Push, [place] injection 00 :00 ONCE, 1 Medical 20 mg dose, On Branch Kathie 01/18/22 at 0630, [place] ondansetron 2021- No 4mg 4 mg, Slow Univers (ZOFRAN 01-18 IV Push, ity of (PF)) 11:30: 10:52 ONCE, 1 [place] injection 4 00 :00 dose, On Medi yessi mg Kathie 01/18/22 Branch at 0630, [place] iodixanoL 2021- No [id number] 80mL 80 mL, U nivers (VISIPAQUE 01-18 Intravenou it y of 270-150 mL) 11:21: 11:15 s, ONCE, 1 [place] injection 00 :00 dose, On Medica l 80 mL [facility] 01/18/22 Branch at 0630, Routine NaCl 0.9% 2021- No 1000mL at 999 Uni vers (NS) bolus 01-18 mL/hr, ity of infusion 11:15: 12:59 1,000 mL, [place] 1,000 mL 00 :00 IV Medical Infusion, Branch ONCE, 1 dose, On Kathie 01/18/22 at 0615, [place] morpHINE (4 2021- No 4mg 4 mg, Slow Univers mg/mL) 01-18 IV Push, ity of injection 4 10:45: 10:52 ONCE, 1 [place] mg 00 :00 dose, On Medical Kathie 01/18/22 Branch at 0545, STAT traMADoL 50 2021-0 Yes [id number] 50mg Take 1 Univ ers mg tablet 01-18 tablet by ity o f 00:00: mouth [place] 00 every 6 Medical (six) Branch hours as needed for Pain (scale 7-10). Indication s: acute pain ondansetron 2021-0 Yes [id number] 4mg Take 1 Univers 4 mg 01-18 [id number] tablet by ity of disintegrat 00:00: mouth [place] ing tablet 00 every 8 Medica l (eight) Branch hours as needed for Nausea and Vomiting (N/V). ibuprofen Yes [id number] 600mg Take 1 Univers 600 mg 01-18 [id number] tablet by ity of tablet 00:00: mouth [place] 00 every 6 Medical (six) Branch hours as needed for Pain (scale 4-6). predniSONE 2021- Yes [id number] 40mg Take 2 Univers 20 mg 01-16 tablets by ity of tablet 00:00: 04:59 mouth in [place] 00 :00 the Medical morning Branch for 7 days. predniSONE 2021- Yes [id number] 40mg Take 2 Univers 20 mg 01-16 tablets by ity of tablet 00:00: 04:59 mouth in [place] 00 :00 the [facility] morning Branch for 7 days. morpHINE (4 No 4mg 4 mg, Slow Univers mg/mL) 01-15 IV Push, ity of injection 4 16:15: 15:28 ONCE, 1 [place] mg 00 :00 dose, On Medical [facility] 01/15/22 Branch at 1115, [place] proMETHazin No 12.5mg 12.5 mg, Univers e 01-15 IV ity of (PHENERGAN) 15:30: 15:28 [place] 12.5 mg in 00 :00 ONCE, 1 Medica l NaCl 0.9% dose, On Branch (NS) 50 mL Sat01/15/22 IV at 1030, pig[place]back [place] NaCl 0.9% No 1000mL at 999 Uni vers (NS) bolus 01-15 mL/hr, ity of infusion 15:00: 15:38 1,000 mL, [place] 1,000 mL 00 :00 IV Medical Infusion, Branch ONCE, 1 dose, On [facility] 01/15/22 at 1000, [place] morpHINE (4 No 4mg 4 mg, Slow Univers mg/mL) 01-15 IV Push, ity of injection 4 15:00: 14:37 ONCE, 1 [place] mg 00 :00 dose, On Medical [facility] 01/15/22 Branch at 1000, [place] ondansetron No 8mg 8 mg, Slow Univers (ZOFRAN 01-15- IV Push, ity of (PF)) 14:15: 14:37 ONCE, 1 [place] injection 8 00 :00 dose, On Medi yessi mg 01/15/22 Branch at 0915, [place] dexamethaso 2021- No 10mg 10 mg, Uni vers ne sod phos 01-15- Slow IV ity of PF 14:15: 14:37 Push, [place] injection 00 :00 ONCE, 1 Medical 10 mg dose, On Branch 01/15/22 at 0915, 1 mL proMETHazin Yes [id number] 25mg Take 1 Univers e 25 mg 9-05 tablet by ity of tablet 00:00: mouth [place] 00 every 6 Medical (six) Branch hours as needed for Nausea and Vomiting (N/V). proMETHazin Yes [id number] 25mg Take 1 Univers e 25 mg -05 tablet by ity of tablet 00:00: mouth [place] 00 every 6 Medical (six) Branch hours as needed for Nausea and Vomiting (N/V). ondansetron 2021- No 4mg 4 mg, Univ ers (ZOFRAN-ODT 01-09-30 Oral, ity of ) 01:45: 00:56 ONCE, 1 [place] disintegrat 00 :00 dose, On Medi yessi ing tablet [facility] 4 mg 01/08/22 at 2045, Routine HYDROcodone 2021- No 1{tbl} 1 tablet, Univers -acetaminop 01-09-30 Oral, ity of hen (NORCO 00:45: 00:37 ONCE, 1 [place] 5) 5-325 mg 00 :00 dose, On Medi yessi tablet 1 Mon Branch tablet 01/08/22 at 1945, [place] diphenhydrA 2021- No 25mg 25 mg, Uni vers MINE 01-08 Slow IV ity of (BENADRYL) 23:45: 23:51 Push, [place] injection 00 :00 ONCE, 1 Medical 25 mg dose, On Branch 01/08/22 at 1845, STAT dexamethaso 2021- No 10mg 10 mg, Uni vers ne sod phos 01-08 Slow IV ity of PF 23:45: 23:50 Push, [place] injection 00 :00 ONCE, 1 Medical 10 mg dose, On Branch Sat01/08/22 at 1845, 1 mL ketorolac 2021-0 2021- No 30mg 30 mg, Unive rs (TORADOL) 01-08 Slow IV ity of injection 23:45: 23:51 Push, [place] 30 mg 00 :00 ONCE, 1 Medical dose, On Branch Sat01/08/22 at 1845, [place] ondansetron 2021-0 Yes [id number] 4mg Take 1 Univers 4 mg 8-29 tablet by ity of disintegrat 00:00: mouth [place] ing tablet 00 every 8 Medica l (eight) Branch hours as needed for Nausea and Vomiting (N/V). acetaminoph 2021-0 Yes [id number] 650mg Take 1 Univers en (TYLENOL 8-29 tablet by ity of ARTHRITIS 00:00: mouth [place] PAIN) 650 00 every 8 Medical mg CR (eight) Branch tablet hours as needed for Pain. ketorolac 2021-0 Yes [id number] 10mg Take 1 U nivers 10 mg 8-29 tablet by ity of tablet 00:00: mouth [place] 00 every 6 Medical (six) Branch hours as needed for Pain (scale 4-6) or Pain (scale 7-10). metaxalone 2021-0 Yes [id number] 800mg Take 1 Univers (SKELAXIN) 8-29 tablet by ity of 800 mg 00:00: mouth in [place] tablet 00 the Medical morning Branch and 1 tablet at noon and 1 tablet in the evening. ondansetron 2021-0 Yes [id number] 4mg Take 1 Univers 4 mg 8-29 tablet by ity of disintegrat 00:00: mouth [place] ing tablet 00 every 8 Medica l (eight) Branch hours as needed for Nausea and Vomiting (N/V). acetaminoph 2021-0 Yes [id number] 650mg Take 1 Univers en (TYLENOL 8-29 tablet by ity of ARTHRITIS 00:00: mouth [place] PAIN) 650 00 every 8 Medical mg CR (eight) Branch tablet hours as needed for Pain. ketorolac 2021-0 Yes [id number] 10mg Take 1 U nivers 10 mg 8-29 tablet by ity of tablet 00:00: mouth [place] 00 every 6 Medical (six) Branch hours as needed for Pain (scale 4-6) or Pain (scale 7-10). metaxalone 2021-0 Yes [id number] 800mg Take 1 Univers (SKELAXIN) 8-29 tablet by ity of 800 mg 00:00: mouth in [place] tablet 00 the Medical morning Branch and 1 tablet at noon and 1 tablet in the evening. ondansetron 2021-0 Yes [id number] 4mg Take 1 Univers 4 mg 8-29 tablet by ity of disintegrat 00:00: mouth [place] ing tablet 00 every 8 Medica l (eight) Branch hours as needed for Nausea and Vomiting (N/V). acetaminoph 2021-0 Yes [id number] 650mg Take 1 Univers en (TYLENOL 8-29 tablet by ity of ARTHRITIS 00:00: mouth [place] PAIN) 650 00 every 8 Medical mg CR (eight) Branch tablet hours as needed for Pain. ketorolac 2021-0 Yes [id number] 10mg Take 1 U nivers 10 mg 8-29 tablet by ity of tablet 00:00: mouth [place] 00 every 6 Medical (six) Branch hours as needed for Pain (scale 4-6) or Pain (scale 7-10). metaxalone 2021-0 Yes [id number] 800mg Take 1 Univers (SKELAXIN) 8-29 tablet by ity of 800 mg 00:00: mouth in [place] tablet 00 the Medical morning Branch and 1 tablet at noon and 1 tablet in the evening. metroNIDAZO 2021-0 Yes 500mg Take 1 Uni vers LE 500 mg 8-08 tablet by ity o f tablet 00:00: mouth [place] 00 every 12 Medical (twelve) Branch hours. metroNIDAZO 2022-0 Yes 500mg Take 1 Uni vers LE 500 mg 8-08 tablet by ity o f tablet 00:00: mouth [place] 00 every 12 Medical (twelve) Branch hours. metroNIDAZO 2022-0 Yes 500mg Take 1 Uni vers LE 500 mg 8-08 tablet by ity o f tablet 00:00: mouth [place] 00 every 12 Medical (twelve) Branch hours. metroNIDAZO 2022-0 Yes 500mg Take 1 Uni vers LE 500 mg 8-08 tablet by ity o f tablet 00:00: mouth [place] 00 every 12 Medical (twelve) Branch hours. trazodone/d No Take by Un sushant ietary 8-02 08-02 mouth. ity of supp. no.8 15:08: 00:00 [place] (TRAZAMINE 46 :00 Medical ORAL) Branch diphenhydrA Yes 25mg Take 25 mg Univers MINE 25 mg 802 by mouth ity o f capsule 13:03: every 6 [place] 04 (six) Medical hours as Branch needed for Allergies. carbamazepi 0 Yes Take by Un sushant ne 8- mouth. ity of (TEGRETOL 13:03: [place] ORAL) Medical Branch citalopram Yes Take by Univ ers hydrobromid 8- mouth. ity of e 13:03: [place] (CITALOPRAM 04 Medical ORAL) Branch ALBUTEROL 0 Yes Univers INHALE 12-12 ity of 13:03: [place] Medical Branch diphenhydrA 0 Yes 25mg Take 25 mg Univers MINE 25 mg 12-12 by mouth ity o f capsule 13:03: every 6 [place] 04 (six) Medical hours as Branch needed for Allergies. carbamazepi 0 Yes Take by Uni vers ne 8- mouth. ity of (TEGRETOL 13:03: [place] ORAL) 04 Medical Branch citalopram Yes Take by Univ ers hydrobromid 8- mouth. ity of e 13:03: [place] (CITALOPRAM 04 Medical ORAL) Branch ALBUTEROL 0 Yes Univers INHALE 8 ity of 13:03: [place] 04 Medical Branch diphenhydrA 0 Yes 25mg Take 25 mg Univers MINE 25 mg 02 by mouth ity o f capsule 13:03: every 6 [place] 04 (six) Medical hours as Branch needed for Allergies. carbamazepi 0 Yes Take by Uni vers ne 8-02 mouth. ity of (TEGRETOL 13:03: [place] ORAL) 04 Medical Branch citalopram Yes Take by Univ ers hydrobromid 8-02 mouth. ity of e 13:03: [place] (CITALOPRAM 04 Medical ORAL) Branch ALBUTEROL 0 Yes Univers INHALE 802 ity of 13:03: [place] [address] Medical Branch diphenhydrA 2022-0 Yes 25mg Take 25 mg Univers MINE 25 mg -02 by mouth ity o f capsule 13:03: every 6 [place] 04 (six) Medical hours as Branch needed for Allergies. carbamazepi Yes Take by Uni vers ne 12-12 mouth. ity of (TEGRETOL 13:03: [place] ORAL) 04 Medical Branch citalopram Yes Take by Univ ers hydrobromid 12-12 mouth. ity of e 13:03: [place] (CITALOPRAM 04 Medical ORAL) Branch ALBUTEROL Yes Univers INHALE 12-12 ity of 13:03: [place] 04 Medical Branch traZODone Yes [id number] 50mg Take 1 U nivers 50 mg 8-02 tablet by ity of tablet 00:00: mouth at [place] 00 bedtime. Medical Branch SERTraline Yes [id number] 50mg Take 1 Univers (ZOLOFT) 50 8-02 tablet by ity of mg tablet 00:00: mouth [place] 00 the Medical morning. Branch traZODone Yes [id number] 50mg Take 1 U nivers 50 mg 8-02 tablet by ity of tablet 00:00: mouth at [place] 00 bedtime. Medical Branch SERTraline Yes [id number] 50mg Take 1 Univers (ZOLOFT) 50 8-02 tablet by ity of mg tablet 00:00: mouth [place] 00 the Medical morning. Branch traZODone 0 Yes [id number] 50mg Take 1 U nivers 50 mg 8-02 tablet by ity of tablet 00:00: mouth at [place] 00 bedtime. Medical Branch SERTraline Yes [id number] 50mg Take 1 Univers (ZOLOFT) 50 8-02 tablet by ity of mg tablet 00:00: [place] 00 the Medical morning. Branch traZODone 0 Yes [id number] 50mg Take 1 U nivers 50 mg 8-02 tablet by ity of tablet 00:00: mouth at [place] 00 bedtime. Medical Branch SERTraline Yes [id number] 50mg Take 1 Univers (ZOLOFT) 50 8-02 tablet by ity of mg tablet 00:00: [place] 00 the Medical morning. Branch sulfamethox 2021- No [id number] 1{tbl} Take 1 Univers azole-trime 12-12- tablet by it y of thoprim 00:00: 04:59 mouth in [place] (BACTRIM 00 :00 the Medical DS) 800-160 morning Branc h mg per and 1 tablet tablet in the evening. Do all this for 3 days. ibuprofen 0 Yes [id number] 600mg Take 1 Univers 600 mg 7-15 tablet by ity of tablet 00:00: mouth [place] 00 every 6 Medical (six) Branch hours as needed for Pain (scale 4-6). ibuprofen 0 Yes [id number] 600mg Take 1 Univers 600 mg 7-15 tablet by ity of tablet 00:00: [facility] every 6 Medical (six) Branch hours as needed for Pain (scale 4-6). ibuprofen 0 Yes [id number] 600mg Take 1 Univers 600 mg 7-15 tablet by ity of tablet 00:00: [facility] every 6 Medical (six) Branch hours as needed for Pain (scale 4-6). ibuprofen 0 Yes [id number] 600mg Take 1 Univers 600 mg 7-15 tablet by ity of tablet 00:00: [facility] every 6 Medical (six) Branch hours as needed for Pain (scale 4-6). acetaminoph 2021- No [id number] 1{tbl} Take 1 U nivers en-codeine 11-24 tablet by ity of 300-30 mg 00:00: 00:00 mouth [place] tablet 00 :00 every 4 Medical (four) Branch hours as needed for Pain (scale 4-6). Indication s: acute pain bromphenira 2021-0 Yes [id number] 5mL Take 5 mL Univers mine-pseudo 11-18 by mouth 4 it y of ephedrine-D 00:00: (four) [place] M (BROMFED 00 times Medical DM) 2-30-10 daily as Bran ch mg/5 mL needed for syrup Congestion /Allergies or Cough. naproxen 2021-0 Yes [id number] 500mg Take 1 U nivers 500 mg 7-09 tablet by ity of tablet 00:00: mouth [place] 00 every 8 Medical (eight) Branch hours as needed for Pain (scale 4-6). cyclobenzap 2022-0 Yes [id number] 10mg Take 1 Univers rine 10 mg 7-09 tablet by ity of tablet 00:00: mouth at [place] 00 bedtime as Medical needed for Branch Muscle Spasms. bromphenira 2022-0 Yes [id number] 5mL Take 5 mL Univers mine-pseudo 7-09 by mouth 4 it y of ephedrine-D 00:00: (four) [place] M (BROMFED 00 times Medical DM) 2-30-10 daily as Bran ch mg/5 mL needed for syrup Congestion /Allergies or Cough. naproxen 2022-0 Yes [id number] 500mg Take 1 U nivers 500 mg 7-09 tablet by ity of tablet 00:00: mouth [place] 00 every 8 Medical (eight) Branch hours as needed for Pain (scale 4-6). cyclobenzap 2022-0 Yes [id number] 10mg Take 1 Univers rine 10 mg 7-09 tablet by ity of tablet 00:00: mouth at [place] 00 bedtime as Medical needed for Branch Muscle Spasms. bromphenira 2022-0 Yes [id number] 5mL Take 5 mL Univers mine-pseudo 7-09 by mouth 4 it y of ephedrine-D 00:00: (four) [place] M (BROMFED 00 times Medical DM) 2-30-10 daily as Bran ch mg/5 mL needed for syrup Congestion /Allergies or Cough. naproxen 2022-0 Yes [id number] 500mg Take 1 U nivers 500 mg 7-09 tablet by ity of tablet 00:00: mouth [place] 00 every 8 Medical (eight) Branch hours as needed for Pain (scale 4-6). cyclobenzap 2022-0 Yes [id number] 10mg Take 1 Univers rine 10 mg 7-09 tablet by ity of tablet 00:00: mouth at [place] 00 bedtime as Medical needed for Branch Muscle Spasms. bromphenira 2022-0 Yes [id number] 5mL Take 5 mL Univers mine-pseudo 7-09 by mouth 4 it y of ephedrine-D 00:00: (four) [place] M (BROMFED 00 times Medical DM) 2-30-10 daily as Bran ch mg/5 mL needed for syrup Congestion /Allergies or Cough. naproxen 2022-0 Yes [id number] 500mg Take 1 U nivers 500 mg 7-09 tablet by ity of tablet 00:00: mouth [place] 00 every 8 Medical (eight) Branch hours as needed for Pain (scale 4-6). cyclobenzap 2021-0 Yes [id number] 10mg Take 1 Univers rine 10 mg 7-09 tablet by ity of tablet 00:00: mouth at [place] 00 bedtime as Medical needed for Branch Muscle Spasms. ibuprofen 2021-0 Yes [id number] 605mg Take 30.25 Univers 100 mg/5 mL 6-15 mL by ity of oral 00:00: mouth [place] suspension 00 every 6 Medica l (six) Branch hours as needed for Pain (scale 4-6) or Temp > 38.5 C. ibuprofen 2021-0 Yes [id number] 605mg Take 30.25 Univers 100 mg/5 mL 6-15 mL by ity of oral 00:00: mouth [place] suspension 00 every 6 Medica l (six) Branch hours as needed for Pain (scale 4-6) or Temp > 38.5 C. ibuprofen 0 Yes [id number] 605mg Take 30.25 Univers 100 mg/5 mL 6-15 mL by ity of oral 00:00: mouth [place] suspension 00 every 6 Medica l (six) Branch hours as needed for Pain (scale 4-6) or Temp > 38.5 C. ibuprofen 0 Yes [id number] 605mg Take 30.25 Univers 100 mg/5 mL 6-15 mL by ity of oral 00:00: mouth [place] suspension 00 every 6 Medica l (six) Branch hours as needed for Pain (scale 4-6) or Temp > 38.5 C. acetaminoph 2021-0 2021- No [id number] 608mg Take 19 mL Univers en 160 mg/5 6-15 12-12 by mouth ity of mL liquid 00:00: 00:00 every 6 [place] 00 :00 (six) Medical hours as Branch needed for Fever. DULoxetine 0 Yes Univers 60 mg 5-27 ity of capsule 00:00: [place] Medical Branch DULoxetine 2021-0 Yes Univers 60 mg 5-27 ity of capsule 00:00: Medical Branch DULoxetine 2022-0 Yes Univers 60 mg 5-27 ity of capsule 00:00: [place] 00 Medical Branch DULoxetine 0 Yes Univers 60 mg 5-27 ity of capsule 00:00: [place] 00 Medical Branch traZODone 2021- No Univers 50 mg 5-27 - ity of tablet 00:00: 00:00 [place] 00 :00 Medical Branch mometasone 2021-0 Yes [id number] 1{spray Use 1 Univers 50 5-19 } [place] in ity of mcg/actuati 00:00: each [place] on nasal 00 nostril 2 Medica l spray (two) Branch times daily. mometasone Yes [id number] 1{spray Use 1 Univers 50 5-19 } [place] in ity of mcg/actuati 00:00: each [place] on nasal 00 nostril 2 Medica l spray (two) Branch times daily. mometasone 0 Yes [id number] 1{spray Use 1 Univers 50 5-19 } [place] in ity of mcg/actuati 00:00: each on nasal 00 nostril 2 Medica l spray (two) Branch times daily. mometasone 0 Yes [id number] 1{spray Use 1 Univers 50 5-19 } [place] in ity of mcg/actuati 00:00: each on nasal 00 nostril 2 Medica l spray (two) Branch times daily. cetirizine Yes [id number] 10mg Take 1 U nivers (ZYRTEC) 10 5-16 tablet by ity of mg tablet 00:00: mouth [place] 00 daily. Medical Branch cetirizine Yes [id number] 10mg Take 1 U nivers (ZYRTEC) 10 5-16 tablet by ity of mg tablet 00:00: mouth [place] 00 daily. Medical Branch cetirizine 0 Yes [id number] 10mg Take 1 U nivers (ZYRTEC) 10 5-16 tablet by ity of mg tablet 00:00: mouth [place] 00 daily. Medical Branch cetirizine Yes [id number] 10mg Take 1 U nivers (ZYRTEC) 10 5-16 tablet by ity of mg tablet 00:00: mouth [place] 00 daily. Medical Branch DULoxetine 2022-0 Yes Univers 30 mg 5-09 ity of capsule 00:00: [place] [facility] gabapentin 2022-0 Yes Univers 300 mg 5-09 ity of capsule 00:00: [place] [facility] ondansetron 2022-0 Yes Univer s 4 mg tablet 5-09 ity of 00:00: [place] [facility] DULoxetine 2022-0 Yes Univers 30 mg 5-09 ity of capsule 00:00: [place] [address] Medical Branch gabapentin 2022-0 Yes Univers 300 mg 5-09 ity of capsule 00:00: [place] [facility] ondansetron 2022-0 Yes Univer s 4 mg tablet 5-09 ity of 00:00: [place] [address] Medical Branch DULoxetine 2022-0 Yes Univers 30 mg 5-09 ity of capsule 00:00: [place] [address] Medical Branch gabapentin 2022-0 Yes Univers 300 mg 5-09 ity of capsule 00:00: [place] [address] Medical Branch ondansetron 2022-0 Yes Univer s 4 mg tablet 5-09 ity of 00:00: [place] [address] Medical Branch DULoxetine 2022-0 Yes Univers 30 mg 5-09 ity of capsule 00:00: [place] [address] Medical Branch gabapentin 2022-0 Yes Univers 300 mg 5-09 ity of capsule 00:00: [place] [address] Medical Branch ondansetron 2022-0 Yes Univer s 4 mg tablet 5-09 ity of 00:00: [place] [address] Medical Branch amLODIPine 2022-0 Yes Univers 5 mg tablet 4-22 ity of 00:00: [place] [address] Medical Branch amLODIPine 2022-0 Yes 5mg Take 5 mg Un sushant 5 mg tablet 4-22 by mouth. ity of 00:00: [place] [address] Medical Branch amLODIPine 2022-0 Yes Univers 5 mg tablet 4-22 ity of 00:00: [place] [address] Medical Branch amLODIPine 2022-0 Yes 5mg Take 5 mg Un sushant 5 mg tablet 4-22 by mouth. ity of 00:00: [place] [address] Medical Branch amLODIPine 2022-0 Yes Univers 5 mg tablet 4-22 ity of 00:00: [place] [address] Medical Branch amLODIPine 2022-0 Yes 5mg Take 5 mg Un sushant 5 mg tablet 4-22 by mouth. ity of 00:00: [place] [address] Medical Branch amLODIPine 2022-0 Yes Univers 5 mg tablet 4-22 ity of 00:00: Medical Branch amLODIPine 0 Yes 5mg Take 5 mg Un sushant 5 mg tablet 4-22 by mouth. ity of 00:00: 00 Medical Branch buPROPion 0 Yes Univers XL 150 mg 4-20 ity of 24 hr 00:00: [place] tablet 00 Medical Branch buPROPion 0 Yes Univers XL 150 mg 4-20 ity of 24 hr 00:00: [place] tablet 00 Medical Branch buPROPion 0 Yes Univers XL 150 mg 4-20 ity of 24 hr 00:00: [place] tablet 00 Medical Branch buPROPion 0 Yes Univers XL 150 mg 4-20 ity of 24 hr 00:00: [place] tablet Medical Branch buPROPion 0 3- No 150mg Take 150 Un sushant XL 150 mg 4-20 04-21 mg by ity of 24 hr 00:00: 04:59 mouth. [place] tablet 00 :00 Medical Branch buPROPion 0 3- No 150mg Take 150 Un sushant XL 150 mg 4-20 04-21 mg by ity of 24 hr 00:00: 04:59 mouth. [place] tablet 00 :00 Medical Branch buPROPion 3- No 150mg Take 150 Un sushant [...] by ity of tablet 00:00: mouth 2 [place] (two) Medical times Branch daily with meals. losartan 50 2020-05 Yes 50mg Take 1 Univ ers mg tablet 2-30 tablet by ity o f 00:00: mouth 2 [place] (two) Medical times Branch daily. carvediloL 2020-05 Yes 25mg Take 1 Unive rs 25 mg 2-30 tablet by ity of tablet 00:00: mouth 2 [place] (two) Medical times Branch daily with meals. [...] Medical 20 mg QPM Branch methocarbam Yes [employer] of 500mg Take 1 Univers oL 4-08 [...] Immunizations Ordered Filled Immunization Date Status Comments [facility] e Immunization Name Name Influenza Virus 2021-06-11 Completed Universit y of Vaccine 00:00:00 [facility] Influenza Virus 2021-06-11 Completed Universit y of Vaccine 00:00:00 [facility] Influenza Virus 2021-06-11 Completed Universit y of Vaccine 00:00: [facility] Influenza Virus 2021-06-11 Completed Universit y of Vaccine 00:00:00 [facility] Influenza Virus 2020-05-19 Completed Universit y of Vaccine 00:00:00 [facility] Influenza Virus 2020-05-19 Completed Universit y of Vaccine 00:00:00 [facility] Influenza Virus 2020-05-19 Completed Universit y of Vaccine 00:00:00 [facility] Influenza Virus 2020-05-19 Completed Universit y of Vaccine 00:00:00 [facility] Influenza Virus 2020-05-19 Completed Universit y of Vaccine 00:00:00 [facility] Influenza Virus 2020-05-16 Completed Universit y of [...] Completed University of VACCINE 00:00:00 [facility] TDAP (ADACEL) 2019-05-21 Completed University of VACCINE 00:00:00 [facility] TDAP (ADACEL) 2019-05-21 Completed University of VACCINE 00:00:00 [facility] TDAP (ADACEL) 2019-05-21 Completed University of VACCINE 00:00:00 [facility] TDAP (ADACEL) 2019-05-21 Completed University of VACCINE 00:00:00 [facility] Influenza Virus 2019-02-06 Completed Universit y of Vaccine Quad .5 mL 00:00:00 [facility] IM 6+ MO Branch Influenza Virus 2019-02-06 Completed Universit y of Vaccine [place] .5 mL 00:00:00 [place] [facility] IM 6+ MO Branch Influenza Virus 2019-02-06 Completed Universit y of Vaccine [place] .5 mL 00:00:00 [facility] IM 6+ MO Branch Influenza Virus 2019-02-06 Completed Universit y of Vaccine [place] .5 mL 00:00:00 [facility] IM 6+ MO Branch Influenza Virus 2019-02-06 Completed Universit y of Vaccine [place] .5 mL 00:00:00 [facility] 6+ MO Branch Vital Signs Vital Name Observation Time Observation Value Comments Source Systolic blood 2022-01-18 14:50:00 144 mm[Hg] Univer sity of pressure [place] [facility] Diastolic blood 2022-01-18 14:50:00 92 mm[Hg] Unive rsity of pressure [facility] Heart rate 2022-01-18 14:50:00 94 /min Universi ty of [place] [facility] Respiratory rate 2022-01-18 14:50:00 20 /min Univ ersity of [place] [facility] Oxygen saturation in 2022-01-18 14:50:00 99 /min University of Arterial blood by [place] arGEN-X yessi Pulse oximetry Branch Body weight 2022-01-18 10:18:00 54.432 kg Universi ty of [place] [facility] [place] BMI 2022-01-18 10:18:00 22.67 kg/m2 Universi ty of [facility] Body temperature 2022-01-18 10:15:00 36.72 Irene Univ ersity of [place] [facility] Systolic blood 2022-01-15 15:48:26 125 mm[Hg] Univer sity of pressure [place] [facility] Diastolic blood 2022-01-15 15:48:26 85 mm[Hg] Unive rsity of pressure [place] [facility] Heart rate 2022-01-15 15:48:26 95 /min Universi ty of [place] [facility] [place] Respiratory rate 2022-01-15 15:48:26 18 /min Univ ersity of [place] [facility] Oxygen saturation in 2022-01-15 15:48:26 98 /min University of Arterial blood by [place] arGEN-X yessi Pulse oximetry Branch Body temperature 2022-01-15 13:32:00 37.11 Irene Univ ersity of [place] [facility] Body height 2022-01-15 13:32:00 154.9 cm Universi ty of [place] [facility] Body weight 2022-01-15 13:32:00 54.432 kg Universi ty of [place] [facility] [place] BMI 2022-01-15 13:32:00 22.67 kg/m2 Universi ty of [place] [facility] [place] Systolic blood 2022-01-09 00:37:11 127 mm[Hg] Univer sity of pressure [place] [facility] Diastolic blood 2022-01-09 00:37:11 90 mm[Hg] Unive rsity of pressure [facility] Heart rate 2022-01-09 00:37:11 94 /min Universi ty of [facility] Body temperature 2022-01-09 00:37:11 [address] [facility] [place] [place] Respiratory rate 2022-01-09 00:37:11 16 /min [facility] [place] [place] Oxygen saturation in 2022-01-09 00:37:11 97 /min [facility] Arterial blood by [facility] Pulse oximetry Branch Body height 2022-01-08 23:03:00 154.9 cm Universi ty [facility] Body weight 2022-01-08 23:03:00 58.06 kg Universi ty [facility] BMI 2022-01-08 23:03:00 24.19 kg/m2 [facility] Systolic blood 2021-12-12 18:00:00 126 mm[Hg] Univer sity of [facility] Diastolic blood 2021-12-12 18:00:00 87 mm[Hg] Unive rsity of [facility] Heart rate 2021-12-12 18:00:00 86 [facility] Body temperature 2021-12-12 18:00:[address] [facility] [place] [place] Respiratory rate 2021-12-12 18:00:00 18 /min [facility] [place] [place] Body height 2021-12-12 18:00:00 154.9 cm Universi [facility] Body weight 2021-12-12 18:00:00 57.153 kg Universi ty [facility] BMI 2021-12-12 18:00:00 23.81 kg/m2 [facility] Procedures Procedure Date / Time Performing Clinician Source Performed US GALL BLADDER 2022-01-18 12:31:09 Bernardo Levy [facility] US PELVIS COMPLETE WITH 2022-01-18 12:21:13 Melvin Zhao [facility] TRANSVAGINAL [facility] CT ABDOMEN PELVIS W 2022-01-18 11:20:50 Melvin Zhao [facility] CONTRAST [facility] POCT TEST 2022-01-18 10:57:00 Jayy Kennedy [facility] COVID-19 (ID NOW RAPID 2022-01-18 10:57:00 Jayy Kennedy [facility] TESTING) Medical Branch URINALYSIS 2022-01-18 10:47:00 Jayy Kennedy [facility] LIPASE 2022-01-18 10:29:00 Jayy Kennedy [facility] TEST, SERUM 2022-01-18 10:29:00 Jayy Kennedy [facility] HEPATIC FUNCTION PANEL 2022-01-18 10:29:00 Jayy Kennedy [facility] ([id number]) (ALB,T.PRO,BILI Medical Branch T,BU/BC,ALT,AST,ALK PHOS) BASIC METABOLIC PANEL 2022-01-18 10:29:00 Jayy Kennedy [facility] (NA, K, CL, CO2, Medical Branch GLUCOSE, BUN, CREATININE, CA) CBC WITH DIFF 2022-01-18 10:29:00 Jayy Kennedy [facility] CONSENT/REFUSAL FOR 2022-01-18 10:13:31 Doctor Unassigned, [facility] Name [facility] CT HEAD WO CONTRAST 2022-01-15 15:22:29 Kenny [facility] TEST, SERUM 2022-01-15 14:36:00 Kenny [facility] BASIC METABOLIC PANEL 2022-01-15 14:36:00 Kenny [facility] (NA, K, CL, CO2, [facility] Branch GLUCOSE, BUN, CREATININE, CA) CBC WITH DIFF 2022-01-15 14:36:00 Kenny [facility] [place] [facility] CONSENT/REFUSAL FOR 2022-01-15 13:28:12 [facility] Name Medical Branch XR CERVICAL SPINE 4 VW 2022-01-09 00:29:16 Dom Humberto [facility] XR LUMBAR SPINE 4 VW 2022-01-09 00:29:16 Dom Humberto [facility] XR SPINE THORACIC 3 VW 2022-01-09 00:29:16 Humberto Fernandes [facility] URINALYSIS 2022-01-08 23:50:00 Humberto Fernandes [facility] CONSENT/REFUSAL FOR 2022-01-08 22:51:08 Doctor Unassigned, No Un [facility] DIAGNOSIS AND TREATMENT Name Medical Branch GALV ONLY - VAGINAL 2021-12-12 18:37:00 Prasanna Vargas [facility] PATHOGENS BY NUCLEIC Medical Bra nch ACID TESTING URINE CULTURE 2021-12-12 18:32:00 Prasanna Vargas [facility] o f [facility] POCT TEST 2021-12-12 18:31:00 Prasanna Vargas [facility] POCT URINALYSIS W/O 2021-12-12 18:31:00 [facility] SPECIFIC GRAVITY [facility] Plan of Care Planned Activity Planned Date Details Comments Source Future Scheduled 2029-05-21 DTaP,Tdap,and Td Univers [facility] [place] [facility] Test 00:00:00 Vaccines (2 - Td) Medical Br anch [code = DTaP,Tdap,and Td Vaccines (2 - Td)] Future Scheduled 2021-09-06 Depression screening [facility] Test 00:00:00 (procedure) [code = Medical Branch 603786950] Future Scheduled 2016-02-19 Screening for [facility] Test 00:00:00 malignant neoplasm Medical B ranch of cervix (procedure) [code = 375806958] Future Scheduled 2013 Hepatitis C [facility] Test 00:00:00 screening Medical Branch (procedure) [code = 976727643] Future Scheduled 2011 SARS-CoV-2 [facility] Test 00:00:00 (COVID-19) Vaccine Medical B ranch (1) [code = SARS-CoV-2 (COVID-19) Vaccine (1)] Future Scheduled 2006 HPV VACCINES (1 - Univer [facility] Test 00:00:00 2-dose series) [code Medical Branch = HPV VACCINES (1 - 2-dose series)] Encounters Start End Encounter Admission Attending Care Care Encounter Source Date/Time Date/Time Type Type Clinicians Facility Department ID 2022-12-12 2022-12-12 Outpatient R PRASANNA VARGAS [facility] [id number] Univers 09:30:00 09:30:00 [id number] ity [facility] 2022-01-22 2022-01-22 Outpatient R ERAN [facility] [id number] Univers 11:00:00 11:00:00 VIJAY [id number] ity [facility] 2022-01-22 2022-01-22 Outpatient R ERAN [facility] [id number] Univers 11:00:00 11:00:[address] [facility] 2022-01-18 2022-01-18 Emergency X GARDENIA, [facility] ERT [id number] Univers 05:17:00 10:25:[address] [facility] [place] 2022-01-18 2022-01-18 Emergency Jayy Kennedy W TRAUMA 1.2.840.11 [id number] Univers 05:17:00 10:25:00 Bernardo Levy [facility] [id number] ity of 4.2.7.2.686 [facility] [id number] [facility] 014 Branch 2022-01-15 2022-01-15 Emergency Larry Perez R [facility] 1.2.840.1 [id number] Univers 08:34:00 10:49:00 Maura Cox [id number] ity of EDNA 4.2.7.2.686 [facility] [id number] [address] 2022-01-15 2022-01-15 Emergency X KENNY [facility] ERT [id number] Univers 08:34:00 10:49:00 MAURA itchino [facility] 2022-01-08 2022-01-08 Emergency X DOM, [facility] ERT [id number] Univers 18:04:00 20:09:[address] [facility] [place] 2022-01-08 2022-01-08 [facility] 1.2.840.114 [id number] Univers 18:04:00 20:09:00 Humberto LAWSON [id number] i ty of EDNA 4.2.7.2.686 [facility] [id number] [address] 2021-12-12 2021-12-12 Office Prasanna Vargas [facility] 1.2.840.114 [id number] Univers 13:30:00 13:40:21 Visit Suzanna Carnes [id number] itchino [facility] 4.2.7.2.686 Terrie dailey PROFESSIO [id number] Ia dical NAL 134 Branch BUILDING 2021-12-12 2021-12-12 Outpatient R DEYVI [facility] [id number] [facility] 13:30:00 13:40:21 SUZANNA ity [facility] 2020-11-10 2020-11-10 Urgent Lukelsey, Alissa [facility] 1.2.840.114 [id number] 18:42:46 19:53:43 [facility] [id number] [place] 4.2.7.2.686 Professio [id number] nal [address] Office [address] One 2020-10-31 2020-10-31 Emergency Kaycee Méndez [facility] 1.2.840.114 [id number] 18:52:00 22:15:00 Sharlene Lawson [id number] [place] 4.2.7.2.686 [place] [id number] 084 2020-10-31 2020-10-31 Orders Doctor JORDAN 1.2.840.114 [id number] 00:00:00 00:00:00 Only Unassigned, YAZMIN 350.1.13.10 [facility] 4.2.7.2.686 [id number] 2020-10-20 2020-10-20 Emergency Dev, K [facility] 1.2.840.114 [id number] 14:02:00 17:13:00 Sharlene Lawson [id number] [place] 4.2.7.2.686 [place] [id number] 2020-10-14 2020-10-14 [facility] Prasanna Vargas [facility] 1.2.840.114 [id number] 10:00:00 23:59:00 Encounter Jm Lawson [id number] [place] 4.2.7.2.686 [place] [id number] 2020-10-09 2020-10-09 Emergency Dalton, [facility] 1.2.833.205 [id number] 12:00:00 15:57:00 Anna Lawson 350.1.13.10 [place] 4.2.7.2.686 [place] [id number] 084 2020-10-06 2020-10-06 Office Prasanna Vargas [facility] [id number] 08:53:00 09:46:44 Visit Jm Lawson 350.1.13.10 [place] 4.2.7.2.686 Professio [id number] nal [address] Building 2020-03-04 2020-03-04 Refill Lopez Hitchcock [facility] 1.2.840.114 [id number] 00:00:00 00:00:00 MULTISPEC 350.1.13.10 [place] 4.2.7.2.686 [place] [id number] AND WEI [facility] Results Test Description Test Time Test Comments Results Result Comments Source LIPASE 2022-01-18 12:45:21 Test Item Value Reference Range Interpretation Comme nts LIPASE (test code = 3703317078) 41 U/L 0-220 Lab Interpretation (test code = 89254-6) [id number] 10:57:00 Test Item Value Reference Range Interpretation Comments POCT PREG (test code = 1605) Negative On board controls acceptable with Present C Line (test code = 3574) POCT PREG LOT # (test code = 3575) [id number] POCT PREG TEST DATE (test 03/12/2023 code = 3576) Lab Interpretation (test code = Normal 23539-7) [facility] METABOLIC PANEL (NA, K, CL, CO2, GLUCOSE, BUN, CREATININE, CA)2022-01-18 10:56:51 Test Item Value Reference Range Interpretation Comments NA (test code = 137 mmol/L 135-145 5242437009) K (test code = 4.6 mmol/L 3.5-5 Slight 9832106813) hemolysis CL (test code = 108 mmol/L 98-108 4330414934) CO2 TOTAL (test code 22 mmol/L 23-31 L = 4052292274) AGAP (test code = 2-16 8707494959) BUN (test code = 11 mg/dL 7-23 Slight 2843968017) hemolysis GLUCOSE (test code = 83 mg/dL 70-110 3352537529) CREATININE (test code 0.68 mg/dL 0.5-1.04 = 7144050066) CALCIUM (test code = 8.8 mg/dL 8.6-10.6 5477438616) eGFR (test code = mL/min/1.73m2 1101365234) WESLEY (test code = WESLEY) Association of Glomerular Filtration Rate (GFR) and Staging of Kidney Disease* + -----+ --------+ +| GFR (mL/min/1.73 m2) ?| With Kidney Damage ?| ?Without Kidney Damage+ +------- +---- --+| ?>90 ?| ?Stage one ?| ? Normal ?+ ------+ ---------+--------- +| ?60-89 ?| ?Stage two ?| ? Decreased GFR ? + -----+ --------+ +| ?30-59 ?| ?Stage three ?| ? Stage three ? + -----+ --------+ +| ?15-29 ?| ?Stage four ? | ? Stage four ?+ ------+ ---------+--------- +| ?<15 (or dialysis) ? ?| ?Stage five ? | ? Stage five ?+ ------+ ---------+--------- + *Each stage assumes the associated GFR [...] tests). Lab Interpretation Abnormal (test code = 27582-9) [facility]71100[facility] (ALB,T.PRO,BILI T,BU/BC,ALT,AST,ALK PHOS)2022-01-18 10:56:51 Test Item Value Reference Range Interpretation Comments TOTAL BILI (test code = 7263972957) 0.6 mg/dL 0.1-1.1 BILI UNCON (test code = 4328382941) 0.1 mg/dL 0.1-1.1 BILI CONJ (test code = 2351379167) 0.0 mg/dL 0-0.3 T PROTEIN (test code = 4417594910) 8.6 g/dL 6.3-8.2 H ALBUMIN (test code = 7302914762) 5.1 g/dL 3.5-5 H ALK PHOS (test code = 0690350521) 79 U/L 34-122 ALTv (test code = 1742-6) 117 U/L 5-35 H AST(SGOT) (test code = 2627615636) 163 U/L 13-40 H Lab Interpretation (test code = Abnormal 03612-6) [facility], [id number] 10:54:25 Test Item Value Reference Range Interpretation Comments PREG SERUM (test code Negative = 8101364594) WESLEY (test code = WESLEY) Less than 10 IU/L. ?If low titer or ectopic is suspected, resubmit specimen in 48-72 hours. [facility] [id number] 10:40:49 Test Item Value Reference Range Interpretation Comments WBC (test code = See_Comment [Automated 8943-2) message] The sy stem which generated this result transmitted reference range : 4.30 - 11.10 10*3/?L. The reference range was not used to interpret this result as normal/abnormal . RBC (test code = See_Comment [Automated 295-8) message] The sy stem which generated this result transmitted reference range : 3.93 - 5.25 10*6/?L. The reference range was not used to interpret this result as normal/abnormal . HGB (test code = 14.4 g/dL 11.6-15 718-7) HCT (test code = 42.9 % 35.7-45.2 4544-3) MCV (test code = 86.3 fL 80.6-95.5 787-2) MCH (test code = 29.0 pg 25.9-32.8 785-6) MCHC (test code = 33.6 g/dL 31.6-35.1 786-4) RDW-SD (test code = 45.3 fL 39-49.9 93178-2) RDW-CV (test code = 14.5 % 12-15.5 788-0) PLT (test code = See_Comment [Automated 777-3) message] The sy stem which generated this result transmitted reference range : 166 - 358 10*3/ ?L. The reference r david was not used to interpret this result as normal/abnormal . MPV (test code = 9.5 fL 9.5-12.9 68374-4) NRBC/100 WBC (test See_Comment [Automat ed code = 9104121596) message] The system which generated this result transmitted reference range : 0.0 - 10.0 /100 WBCs. The refer ence range was not u sed to interpret th is result as normal/abnormal . NRBC x10^3 (test code See_Comment [Auto mated = 3958383961) message] The s ystem which generated this result transmitted reference range : 10*3/?L. The reference range was not used to interpret this result as normal/abnormal . GRAN MAT (NEUT) % 47.6 % (test code = 770-8) IMM GRAN % (test code 0.60 % = 6225802882) LYMPH % (test code = 39.9 % 736-9) MONO % (test code = 5.9 % 5905-5) EOS % (test code = 5.3 % 713-8) BASO % (test code = 0.7 % 706-2) GRAN MAT x10^3(ANC) 4.45 10*3/uL 1.88-7.09 (test code = 8401153045) IMM GRAN x10^3 (test 0.06 10*3/uL 0-0.06 code = 1096845061) LYMPH x10^3 (test code 3.74 10*3/uL 1.32-3.29 H = 731-0) MONO x10^3 (test code 0.55 10*3/uL 0.33-0.92 = 742-7) EOS x10^3 (test code = 0.50 10*3/uL 0.03-0.39 H 711-2) BASO x10^3 (test code 0.07 10*3/uL 0.01-0.07 = 704-7) Lab Interpretation Abnormal (test code = 95196-0) [facility] [id number] 18:31:00 Test Item Value Reference Range Interpretation Comments POCT PREG (test code = 1605) Negative On board controls acceptable with C Yes Line (test code = 3574) POCT PREG LOT # (test code = 3575) POCT PREG TEST DATE (test code = 3576) [facility] W/O SPECIFIC [id number] 18:31:00 Test Item Value Reference Range Interpretation [...] code = 3257) Trace Negative - Negative [facility]"
--- NOTE | 2022-01-19 19:21 | ER ---
Nurse's Notes [facility] Name: Natanael Dyson Age: 26 yrs Sex: Female : 1995 Arrival Date: 01/19/2022 Time: 16:15 Bed Waiting Private MD: Diagnosis: Presentation: 01/19 17:03 Chief complaint: Patient states: I came in last week for a kidney stone and every day bm7 the pain is getting worse and I feel like something is not right. I can't eat or drink without throwing up. Coronavirus screen: At this time, the client does not indicate any symptoms associated with coronavirus-19. Ebola Screen: No symptoms or risks identified at this time. Initial Sepsis Screen: Does the patient meet any 2 criteria? No. Patient's initial sepsis screen is negative. Does the patient have a suspected source of infection? No. Patient's initial sepsis screen is negative. Risk Assessment: Do you want to hurt yourself or someone else? Patient reports no desire to harm self or others. Onset of symptoms is unknown. 17:03 Method Of Arrival: Ambulatory 7 17:03 Acuity: THIERNO 3 bm7 Triage Assessment: 17:04 General: Appears in no apparent distress. uncomfortable, Behavior is calm, cooperative, bm7 appropriate for age. Pain: Complains of pain in right upper quadrant Pain does not radiate. EENT: No deficits noted. No signs and/or symptoms were reported regarding the EENT system. Neuro: No deficits noted. Cardiovascular: No deficits noted. Respiratory: No deficits noted. GI: Abdomen is round non-distended, Abd is soft X 4 quads Abdomen is tender to palpation in right upper quadrant Reports upper abdominal pain, intolerance of fluids, intolerance of food, nausea. : Reports burning with urination, cramping. Derm: No deficits noted. No signs and/or symptoms reported regarding the dermatologic system. Musculoskeletal: No deficits noted. No signs and/or symptoms reported regarding the musculoskeletal system. ADOPTION SPECIALIST: 17:04 LMP 01/11/2022 7 Historical: - Allergies: 17:04 Compazine; bm7 17:04 Reglan; bm7 - Home Meds: 17:04 Depakote Oral [Active]; bm7 - PMHx: 17:04 Hypertension; Migraine; bm7 - PSHx: 17:04 tubal ligation; bm7 - Immunization history:: Adult Immunizations up to date, Client reports having NOT received the Covid vaccine. - Social history:: Smoking status: Patient denies any tobacco usage or history of. Vital Signs: 17:03 BP 134 / 90; Pulse 102; Resp 16; Temp 98.1(TE); Pulse Ox 98% on R/A; Weight 54.43 kg bm7 (R); Height 5 ft. 1 in. (154.94 cm); Pain 10/10; 17:03 Body Mass Index 22.67 (54.43 kg, 154.94 cm) bm7 ED Course: 16:15 Patient arrived in ED. mr 17:01 [facility] snw 17:01 Justin Estrella MD is Attending Physician. snw 17:04 Triage completed. bm7 17:04 Arm band placed on right wrist. Patient placed in waiting room, Patient notified of bm7 wait time. 19:20 Patient's name was called from ER lobby. No response. Unable to locate patient. Will bb disposition as left without being seen by a provider. Administered Medications: No medications were administered Outcome: 19:21 Patient left the ED. bb Signatures: Christy Rojas FNP-C FNP-Ronna DiezaKymberly mr Sheyla Tucker, RN RN bb Andressa Wooten, ROSEY RN 7
[2022-01-19 21:30] VITALS: BP 134/90; TEMP 98.1; O2SAT 98
== END 2022-01-19 19:21 | disposition left against medical advice (07) ==
LOC: ER 16:13
DX: Z53.21 Procedure and treatment not carried out due to patient leaving prior to being seen by health care provider (principal)
CPT/HCPCS: 99281

== ENCOUNTER 2022-01-21 08:38 | Emergency (ER) | payer OTHER ==
--- OUTSIDE RECORDS SUMMARY | 2022-01-21 08:44 | XMS REPORT | Continuity of Care Document ---
:1995 Author Organization [facility] t Address [address] [place] [address] Care Team Providers Name Role Phone Sonny FELIX, Paz Cannon Primary Care Physician [phone] PRASANNA VARGAS Attending Clinician Unavailable VIJAY BARILLAS Attending Clinician Unavailable BERNARDO LEVY Attending Clinician Unavailable Jayy Kennedy MD Attending Clinician Bernardo Levy MD Attending Clinician Larry Larry Attending Clinician Maura Cox MD Attending Clinician MAURA COX Attending Clinician Unavailable HUMBERTO FERNANDES Attending Clinician Unavailable Humberto Fernandes MD Attending Clinician Prasanna Vargas MD Attending Clinician Suzanna Carnes PA-C Attending Clinician SUZANNA CARNES Attending Clinician Unavailable Alissa Rosales Attending Clinician Kaycee Soares Attending Clinician Doctor Unassigned, [place] Attending Clinician Unavailable Krystle FELIX, Anna Ricketts Attending Clinician Delroy FELIX, Rad KPilarHPliar Attending Clinician Lopez Hitchcock MD Attending Clinician MAURA COX Admitting Clinician Unavailable HUMBERTO FERNANDES Admitting Clinician Unavailable Payers Payer Name Policy Type Policy Number Effective Date Expiration Date Robert denis [facility] [id number] 2019 MEDICAID 00:00:00 Problems Condition Condition Condition [...] [place] and advice and advice 00 Mo dical for for Branch contracept contracept bonifacio bonifacio management management Routine Routine Disease Resolve 2020-01-05 2020-01-05 Univers d 4-02 00:00:00 22:37:57 [place] [facility] Back pain Back pain Disease Resolve 2020-01-05 2020-01-05 Univers d 4-02 00:00:00 22:37:59 ity of 00:00: [place] 00 [facility] History of History of Disease Resolve 2018-052020-01-05 2020-01-05 Univers tubal tubal d - 00:00:00 22:37:56 ity of ligation ligation 00:00: [place] 00 [facility] Anxiety Anxiety Disease Resolve 2018-052020-01-05 2020-01-05 Univers during during d 2- 00:00:00 22:37:53 [place] second 00 [facility] trimester, trimester, Br anch antepartum [...] 00 Me dical born in born in [facility] hospital by by delivery delivery Normal Normal Disease Resolve 2019-08-13 2019-08-13 Univers labor labor d 3-10 00:00:00 16:34:03 ity of 00:00: [place] 00 [facility] 37 weeks 37 weeks Disease Resolve 2019-08-13 2019-08-13 Univers gestation gestation d 1-02 00:00:00 16:51:42 ity of of of 00:00: [place] 00 [facility] Gastroesop Gastroesop Disease Resolve 2018-052019-08-13 2019-08-13 Univers hageal hageal d 2- 00:00:00 16:33:48 ity of reflux in reflux in 00[place]00[place] [facility] Supervisio Supervisio Disease Resolve 2019-08-13 2019-08-13 Univers n of high n of high d 9-27 00:00:00 16:32:56 ity of risk risk 00:00: [place] 00 Medi yessi in third in third Branch trimester trimester Multiparit Multiparit Disease Resolve 2019-08-13 2019-08-13 Univers y y d 02-06 00:00:00 16:33:04 ity of 00:00: [place] 00 Medical Branch History of History of Disease Resolve 2019-08-13 2019-08-13 Univers d 02-06 00:00:00 16:33:12 ity of delivery delivery 00:00: [place] 00 Medical Branch History of History of Disease Resolve 2019-08-13 2019-08-13 Univers d 02-06 00:00:00 16:33:20 it y of section section 00:00: [place] 00 Medical Branch History of History of Disease Resolve 2019-08-13 2019-08-13 Univers d 02-06 00:00:00 16:33:21 ity of 00:00: [place] 00 Medical Branch IUGR IUGR Disease Resolve [...] d 2-11 00:00:00 12:41:46 ity of 00:00: [place] 00 Medical Branch Upper Upper Disease Resolve [...] ity of of of 00:00: [place] 00 [facility] Branch Disease Resolve 2019-05-28 2019-05-29 [...] 2022-01-18 2022-01-18 Ex-drinker University 00:00:00 00:00:00 (finding) [facility] Exposure to 2022-01-05 2022-01-15 Not sure University SARS-CoV-2 00:00:00 10:37:00 [facility] (event) Branch Tobacco use and 2021-12-12 2021-12-12 Smokeless tobacco Un iversity of exposure 00:00:00 00:00:00 non-user [facility] History SDOH 2019-02-06 2019-02-06 1 University o f Alcohol [facility] 00:00:00 [facility] [place] Sex Assigned At [birth year] Universit y of 00:00:00 00:00:00 [facility] Smoking Status Start Date Stop Date Source Never smoked tobacco [facility] Medications Ordered Filled Start Stop Current Ordering Indication Dosage Frequency Signature Comments Components Source Medication Medication Date Date Medication? Clinician (SIG) Name Name morpHINE (2 2021- No 4mg 4 mg, Slow Univers mg/mL) 01-18 IV Push, ity of injection 4 15:15: 14:49 [place]CE[place] 1 [place] mg [place] :00 dose, On Medical [facility] 01/18/22 Branch at 1015, STAT ondansetron No 4mg 4 mg, Slow Univers (ZOFRAN 01-18 IV Push, ity of (PF)) 13:30: 13:33 ONCE, 1 [place] injection 4 00 :00 dose, On Medi yessi mg [facility] 01/18/22 Branch at 0830, [place] morpHINE (4 2021- No 4mg 4 mg, Slow Univers mg/mL) 01-18 IV Push, ity of injection 4 13:30: 13:34 ONCE, 1 [place] mg 00 :00 dose, On Medical [facility] 01/18/22 Branch at 0830, STAT morpHINE (4 2021- No 4mg 4 mg, Slow Univers mg/mL) 01-18 IV Push, ity of injection 4 12:30: 11:39 ONCE, 1 [place] mg 00 :00 dose, On Medical [facility] 01/18/22 Branch at 0730, STAT famotidine [...] Branch at 0630, [place] iodixanoL 2021- No [id number] 80mL 80 mL, U nivers (VISIPAQUE 01-18 Intravenou it y of 270-150 mL) 11:21: 11:15 s, ONCE, 1 [place] injection 00 :00 dose, On Medica l 80 mL [facility] 01/18/22 Branch at 0630, Routine NaCl [...] Indication s: acute pain ondansetron 2021-0 Yes [id number] 4mg Take 1 Univers 4 mg 01-18 [id number] tablet by ity of disintegrat 00:00: mouth [place] ing tablet 00 every 8 Medica l (eight) Branch hours as needed for Nausea and Vomiting (N/V). ibuprofen Yes [id number] 600mg Take 1 Univers 600 mg 01-18 [id number] tablet by ity of tablet 00:00: mouth [place] 00 every 6 Medical (six) Branch hours as needed for Pain (scale 4-6). predniSONE 2021- Yes [id number] 40mg Take 2 Univers 20 mg 01-16 tablets by ity of tablet 00:00: 04:59 mouth in [place] 00 :00 the Medical morning Branch for 7 days. predniSONE 2021- Yes [id number] 40mg Take 2 Univers 20 mg 01-16 tablets by ity of tablet 00:00: 04:59 mouth in [place] 00 :[address] [facility] morning Branch for 7 days. morpHINE (4 No 4mg 4 mg, Slow Univers mg/mL) 01-15 IV Push, ity of injection 4 16:15: 15:28 ONCE, 1 [place] mg 00 :00 dose, On Medical [facility] 01/15/22 Branch at 1115, [place] proMETHazin No 12.5mg 12.5 mg, Univers e 01-15 IV ity of (PHENERGAN) 15:30: 15:28 [place] 12.5 mg in 00 :00 ONCE, 1 Medica l NaCl 0.9% dose, On Branch (NS) 50 mL Sat01/15/22 IV at 1030, pig[place]back [place] NaCl 0.9% No 1000mL at 999 Uni vers (NS) bolus 01-15 mL/hr, ity of infusion 15:00: 15:38 1,000 mL, [place] 1,000 mL 00 :00 IV Medical Infusion, Branch ONCE, 1 dose, On [facility] 01/15/22 at 1000, [place] morpHINE (4 No 4mg 4 mg, Slow Univers mg/mL) 01-15 IV Push, ity of injection 4 15:00: 14:37 ONCE, 1 [place] mg 00 :00 dose, On Medical [facility] 01/15/22 Branch at 1000, [place] ondansetron No [...] 01/15/22 at 0915, 1 mL proMETHazin Yes [id number] 25mg Take 1 Univers e 25 mg 9-05 tablet by ity of tablet 00:00: mouth [place] 00 every 6 Medical (six) Branch hours as needed for Nausea and Vomiting (N/V). proMETHazin Yes [id number] 25mg Take 1 Univers e 25 mg -05 tablet by ity of tablet 00:00: mouth [place] 00 every 6 Medical (six) Branch hours as needed for Nausea and Vomiting (N/V). ondansetron 2021- No 4mg 4 mg, Univ ers (ZOFRAN-ODT 01-09-30 Oral, ity of ) 01:45: 00:56 ONCE, 1 [place] disintegrat 00 :00 dose, On Medi yessi ing tablet [facility] 4 mg 01/08/22 at 2045, Routine HYDROcodone [...] Sat01/08/22 at 1845, [place] ondansetron 2021-0 Yes [id number] 4mg Take 1 Univers 4 mg 8-29 tablet by ity of disintegrat 00:00: mouth [place] ing tablet 00 every 8 Medica l (eight) Branch hours as needed for Nausea and Vomiting (N/V). acetaminoph 2021-0 Yes [id number] 650mg Take 1 Univers en (TYLENOL 8-29 tablet by ity of ARTHRITIS 00:00: mouth [place] PAIN) 650 00 every 8 Medical mg CR (eight) Branch tablet hours as needed for Pain. ketorolac 2021-0 Yes [id number] 10mg Take 1 U nivers 10 mg 8-29 tablet by ity of tablet 00:00: mouth [place] 00 every 6 Medical (six) Branch hours as needed for Pain (scale 4-6) or Pain (scale 7-10). metaxalone 2021-0 Yes [id number] 800mg Take 1 Univers (SKELAXIN) 8-29 tablet by ity of 800 mg 00:00: mouth in [place] tablet 00 the Medical morning Branch and 1 tablet at noon and 1 tablet in the evening. ondansetron 2021-0 Yes [id number] 4mg Take 1 Univers 4 mg 8-29 tablet by ity of disintegrat 00:00: mouth [place] ing tablet 00 every 8 Medica l (eight) Branch hours as needed for Nausea and Vomiting (N/V). acetaminoph 2021-0 Yes [id number] 650mg Take 1 Univers en (TYLENOL 8-29 tablet by ity of ARTHRITIS 00:00: mouth [place] PAIN) 650 00 every 8 Medical mg CR (eight) Branch tablet hours as needed for Pain. ketorolac 2021-0 Yes [id number] 10mg Take 1 U nivers 10 mg 8-29 tablet by ity of tablet 00:00: mouth [place] 00 every 6 Medical (six) Branch hours as needed for Pain (scale 4-6) or Pain (scale 7-10). metaxalone 2021-0 Yes [id number] 800mg Take 1 Univers (SKELAXIN) 8-29 tablet by ity of 800 mg 00:00: mouth in [place] tablet 00 the Medical morning Branch and 1 tablet at noon and 1 tablet in the evening. ondansetron 2021-0 Yes [id number] 4mg Take 1 Univers 4 mg 8-29 tablet by ity of disintegrat 00:00: mouth [place] ing tablet 00 every 8 Medica l (eight) Branch hours as needed for Nausea and Vomiting (N/V). acetaminoph 2021-0 Yes [id number] 650mg Take 1 Univers en (TYLENOL 8-29 tablet by ity of ARTHRITIS 00:00: mouth [place] PAIN) 650 00 every 8 Medical mg CR (eight) Branch tablet hours as needed for Pain. ketorolac 2021-0 Yes [id number] 10mg Take 1 U nivers 10 mg 8-29 tablet by ity of tablet 00:00: mouth [place] 00 every 6 Medical (six) Branch hours as needed for Pain (scale 4-6) or Pain (scale 7-10). metaxalone 2021-0 Yes [id number] 800mg Take 1 Univers (SKELAXIN) 8-29 tablet [...] mouth. ity of supp. no.8 15:08: 00:00 [place] (TRAZAMINE 46 :00 Medical ORAL) Branch diphenhydrA Yes 25mg Take 25 mg Univers MINE 25 mg 802 by mouth ity o f capsule 13:03: every 6 [place] 04 (six) Medical hours as Branch needed for Allergies. carbamazepi 0 Yes Take by Un sushant ne 8- mouth. ity of (TEGRETOL 13:03: [place] ORAL) Medical Branch citalopram Yes Take by Univ ers hydrobromid 8- mouth. ity of e 13:03: [place] (CITALOPRAM 04 Medical ORAL) Branch ALBUTEROL 0 Yes Univers INHALE 12-12 ity of 13:03: [place] Medical Branch diphenhydrA 0 Yes 25mg Take 25 mg Univers MINE 25 mg 12-12 by mouth ity o f capsule 13:03: every 6 [place] 04 (six) Medical hours as Branch needed for Allergies. carbamazepi 0 Yes Take by Uni vers ne 8- mouth. ity of (TEGRETOL 13:03: [place] ORAL) 04 Medical Branch citalopram Yes Take by Univ ers hydrobromid 8- mouth. ity of e 13:03: [place] (CITALOPRAM 04 Medical ORAL) Branch ALBUTEROL 0 Yes Univers INHALE 8 ity of 13:03: [place] 04 Medical Branch diphenhydrA 0 Yes 25mg Take 25 mg Univers MINE 25 mg 02 by mouth ity o f capsule 13:03: every 6 [place] 04 (six) Medical hours as Branch needed for Allergies. carbamazepi 0 Yes Take by Uni vers ne 8-02 mouth. ity of (TEGRETOL 13:03: [place] ORAL) 04 Medical Branch citalopram Yes Take by Univ ers hydrobromid 8-02 mouth. ity of e 13:03: [place] (CITALOPRAM 04 Medical ORAL) Branch ALBUTEROL 0 Yes Univers INHALE 802 ity of 13:03: [place] [address] Medical Branch diphenhydrA 2022-0 Yes 25mg Take [...] 13:03: [place] 04 Medical Branch traZODone Yes [id number] 50mg Take 1 U nivers 50 mg 8-02 tablet by ity of tablet 00:00: mouth at [place] 00 bedtime. Medical Branch SERTraline Yes [id number] 50mg Take 1 Univers (ZOLOFT) 50 8-02 tablet by ity of mg tablet 00:00: [place] 00 the Medical morning. Branch traZODone Yes [id number] 50mg Take 1 U nivers 50 mg 8-02 tablet by ity of tablet 00:00: mouth at [place] 00 bedtime. Medical Branch SERTraline Yes [id number] 50mg Take 1 Univers (ZOLOFT) 50 8-02 tablet by ity of mg tablet 00:00: [place] 00 the Medical morning. Branch traZODone 0 Yes [id number] 50mg Take 1 U nivers 50 mg 8-02 tablet by ity of tablet 00:00: mouth at [place] 00 bedtime. Medical Branch SERTraline Yes [id number] 50mg Take 1 Univers (ZOLOFT) 50 8-02 tablet by ity of mg tablet 00:00: [place] 00 the Medical morning. Branch traZODone 0 Yes [id number] 50mg Take 1 U nivers 50 mg 8-02 tablet by ity of tablet 00:00: mouth at [place] 00 bedtime. Medical Branch SERTraline Yes [id number] 50mg Take 1 Univers (ZOLOFT) 50 8-02 tablet by ity of mg tablet 00:00: [place] 00 the Medical morning. Branch sulfamethox 2021- No [id number] 1{tbl} Take 1 Univers azole-trime 12-12- tablet by it y of thoprim 00:00: 04:59 mouth in [place] (BACTRIM 00 :00 the Medical DS) 800-160 morning Branc h mg per and 1 tablet tablet in the evening. Do all this for 3 days. ibuprofen 0 Yes [id number] 600mg Take 1 Univers 600 mg 7-15 tablet by ity of tablet 00:00: mouth [place] 00 every 6 Medical (six) Branch hours as needed for Pain (scale 4-6). ibuprofen 0 Yes [id number] 600mg Take 1 Univers 600 mg 7-15 tablet by ity of tablet 00:00: [facility] every 6 Medical (six) Branch hours as needed for Pain (scale 4-6). ibuprofen 0 Yes [id number] 600mg Take 1 Univers 600 mg 7-15 tablet by ity of tablet 00:00: [facility] every 6 Medical (six) Branch hours as needed for Pain (scale 4-6). ibuprofen 0 Yes [id number] 600mg Take 1 Univers 600 mg 7-15 tablet by ity of tablet 00:00: [facility] every 6 Medical (six) Branch hours as needed for Pain (scale 4-6). acetaminoph 2021- No [id number] 1{tbl} Take 1 U nivers en-codeine 11-24 tablet by ity of 300-30 mg 00:00: 00:00 mouth [place] tablet 00 :00 every 4 Medical (four) Branch hours as needed for Pain (scale 4-6). Indication s: acute pain bromphenira 2021-0 Yes [id number] 5mL Take 5 mL Univers mine-pseudo 11-18 by mouth 4 it y of ephedrine-D 00:00: (four) [place] M (BROMFED 00 times Medical DM) 2-30-10 daily as Bran ch mg/5 mL needed for syrup Congestion /Allergies or Cough. naproxen 2021-0 Yes [id number] 500mg Take 1 U nivers 500 mg 7-09 tablet by ity of tablet 00:00: mouth [place] 00 every 8 Medical (eight) Branch hours as needed for Pain (scale 4-6). cyclobenzap 2022-0 Yes [id number] 10mg Take 1 Univers rine 10 mg 7-09 tablet by ity of tablet 00:00: mouth at [place] 00 bedtime as Medical needed for Branch Muscle Spasms. bromphenira 2022-0 Yes [id number] 5mL Take 5 mL Univers mine-pseudo 7-09 by mouth 4 it y of ephedrine-D 00:00: (four) [place] M (BROMFED 00 times Medical DM) 2-30-10 daily as Bran ch mg/5 mL needed for syrup Congestion /Allergies or Cough. naproxen 2022-0 Yes [id number] 500mg Take 1 U nivers 500 mg 7-09 tablet by ity of tablet 00:00: mouth [place] 00 every 8 Medical (eight) Branch hours as needed for Pain (scale 4-6). cyclobenzap 2022-0 Yes [id number] 10mg Take 1 Univers rine 10 mg 7-09 tablet by ity of tablet 00:00: mouth at [place] 00 bedtime as Medical needed for Branch Muscle Spasms. bromphenira 2022-0 Yes [id number] 5mL Take 5 mL Univers mine-pseudo 7-09 by mouth 4 it y of ephedrine-D 00:00: (four) [place] M (BROMFED 00 times Medical DM) 2-30-10 daily as Bran ch mg/5 mL needed for syrup Congestion /Allergies or Cough. naproxen 2022-0 Yes [id number] 500mg Take 1 U nivers 500 mg 7-09 tablet by ity of tablet 00:00: mouth [place] 00 every 8 Medical (eight) Branch hours as needed for Pain (scale 4-6). cyclobenzap 2022-0 Yes [id number] 10mg Take 1 Univers rine 10 mg 7-09 tablet by ity of tablet 00:00: mouth at [place] 00 bedtime as Medical needed for Branch Muscle Spasms. bromphenira 2022-0 Yes [id number] 5mL Take 5 mL Univers mine-pseudo 7-09 by mouth 4 it y of ephedrine-D 00:00: (four) [place] M (BROMFED 00 times Medical DM) 2-30-10 daily as Bran ch mg/5 mL needed for syrup Congestion /Allergies or Cough. naproxen 2022-0 Yes [id number] 500mg Take 1 U nivers 500 mg 7-09 tablet by ity of tablet 00:00: mouth [place] 00 every 8 Medical (eight) Branch hours as needed for Pain (scale 4-6). cyclobenzap 2021-0 Yes [id number] 10mg Take 1 Univers rine 10 mg 7-09 tablet by ity of tablet 00:00: mouth at [place] 00 bedtime as Medical needed for Branch Muscle Spasms. ibuprofen 2021-0 Yes [id number] 605mg Take 30.25 Univers 100 mg/5 mL 6-15 mL by ity of oral 00:00: mouth [place] suspension 00 every 6 Medica l (six) Branch hours as needed for Pain (scale 4-6) or Temp > 38.5 C. ibuprofen 2021-0 Yes [id number] 605mg Take 30.25 Univers 100 mg/5 mL 6-15 mL by ity of oral 00:00: mouth [place] suspension 00 every 6 Medica l (six) Branch hours as needed for Pain (scale 4-6) or Temp > 38.5 C. ibuprofen 0 Yes [id number] 605mg Take 30.25 Univers 100 mg/5 mL 6-15 mL by ity of oral 00:00: mouth [place] suspension 00 every 6 Medica l (six) Branch hours as needed for Pain (scale 4-6) or Temp > 38.5 C. ibuprofen 0 Yes [id number] 605mg Take 30.25 Univers 100 mg/5 mL 6-15 mL by ity of oral 00:00: mouth [place] suspension 00 every 6 Medica l (six) Branch hours as needed for Pain (scale 4-6) or Temp > 38.5 C. acetaminoph 2021-0 2021- No [id number] 608mg Take 19 mL Univers en 160 [...] 00 :00 Medical Branch mometasone 2021-0 Yes [id number] 1{spray Use 1 Univers 50 5-19 } [place] in ity of mcg/actuati 00:00: each [place] on nasal 00 nostril 2 Medica l spray (two) Branch times daily. mometasone Yes [id number] 1{spray Use 1 Univers 50 5-19 } [place] ity of mcg/actuati 00:00: each [place] on nasal 00 nostril 2 Medica l spray (two) Branch times daily. mometasone 0 Yes [id number] 1{spray Use 1 Univers 50 5-19 } [place] ity of mcg/actuati 00:00: each on nasal 00 nostril 2 Medica l spray (two) Branch times daily. mometasone 0 Yes [id number] 1{spray Use 1 Univers 50 5-19 } [place] ity of mcg/actuati 00:00: each on nasal 00 nostril 2 Medica l spray (two) Branch times daily. cetirizine Yes [id number] 10mg Take 1 U nivers (ZYRTEC) 10 5-16 tablet by ity of mg tablet 00:00: mouth [place] 00 daily. Medical Branch cetirizine Yes [id number] 10mg Take 1 U nivers (ZYRTEC) 10 5-16 tablet by ity of mg tablet 00:00: mouth [place] 00 daily. Medical Branch cetirizine 0 Yes [id number] 10mg Take 1 U nivers (ZYRTEC) 10 5-16 tablet by ity of mg tablet 00:00: mouth [place] 00 daily. Medical Branch cetirizine Yes [id number] 10mg Take 1 U nivers (ZYRTEC) 10 5-16 tablet by ity of mg tablet 00:00: mouth [place] 00 daily. Medical Branch DULoxetine 2022-0 Yes Univers 30 mg 5-09 ity of capsule 00:00: [place] Medical Branch gabapentin 2022-0 Yes Univers 300 mg 5-09 ity of capsule 00:00: [place] Medical Branch ondansetron 2022-0 Yes Univer s 4 mg tablet 5-09 ity of 00:00: [place] Medical Branch DULoxetine 2022-0 Yes Univers 30 mg 5-09 ity of capsule 00:00: [place] [address] Medical Branch gabapentin 2022-0 Yes Univers 300 mg 5-09 ity of capsule 00:00: [place] Medical Branch ondansetron 2022-0 Yes Univer s 4 mg tablet 5-09 ity of 00:00: [place] [address] Medical Branch DULoxetine 2022-0 Yes Univers 30 mg 5-09 ity of capsule 00:00: [place] [address] Medical Branch gabapentin 2022-0 Yes Univers 300 mg 5-09 ity of capsule 00:00: [place] [address] Medical Branch ondansetron 2022-0 Yes Univer s 4 mg tablet 5-09 ity of 00:00: [place] [address] Medical Branch DULoxetine 2022-0 Yes Univers 30 mg 5-09 ity of capsule 00:00: [place] [address] Medical Branch gabapentin 2022-0 Yes Univers 300 mg 5-09 ity of capsule 00:00: [place] [address] Medical Branch ondansetron 2022-0 Yes Univer s 4 mg tablet 5-09 ity of 00:00: [place] [address] Medical Branch amLODIPine 2022-0 Yes Univers 5 mg tablet 4-22 ity of 00:00: [place] [address] Medical Branch amLODIPine 2022-0 Yes 5mg Take 5 mg Un sushant 5 mg tablet 4-22 by mouth. ity of 00:00: [place] [address] Medical Branch amLODIPine 2022-0 Yes Univers 5 mg tablet 4-22 ity of 00:00: [place] [address] Medical Branch amLODIPine 2022-0 Yes 5mg Take 5 mg Un sushant 5 mg tablet 4-22 by mouth. ity of 00:00: [place] [address] Medical Branch amLODIPine 2022-0 Yes Univers 5 mg tablet 4-22 ity of 00:00: [place] [address] Medical Branch amLODIPine 2022-0 Yes 5mg Take 5 mg Un sushant 5 mg tablet 4-22 by mouth. ity of 00:00: [place] [address] Medical Branch amLODIPine 2022-0 Yes Univers 5 [...] by ity of tablet 00:00: mouth 2 [place] (two) Medical times Branch daily with meals. losartan 50 2020-05 Yes 50mg Take 1 Univ ers mg tablet 2-30 tablet by ity o f 00:00: mouth 2 [place] (two) Medical times Branch daily. carvediloL 2020-05 Yes 25mg Take 1 Unive rs 25 mg 2-30 tablet by ity of tablet 00:00: mouth 2 [place] (two) Medical times Branch daily with meals. [...] Medical 20 mg QPM Branch methocarbam Yes [employer] of 500mg Take 1 Univers oL 4-08 [...] Filled Immunization Date Status Comments [facility] e Immunization Name Name Influenza Virus 2021-06-11 Completed Universit y of Vaccine 00:00:00 [facility] Influenza Virus 2021-06-11 Completed Universit y of Vaccine 00:00:00 [facility] Influenza Virus 2021-06-11 Completed Universit y of Vaccine 00:00: [facility] Influenza Virus 2021-06-11 Completed Universit y of Vaccine 00:00:00 [facility] Influenza Virus 2020-05-19 Completed Universit y of Vaccine 00:00:00 [facility] Influenza Virus 2020-05-19 Completed Universit y of Vaccine 00:00:00 [facility] Influenza Virus 2020-05-19 Completed Universit y of Vaccine 00:00:00 [facility] Influenza Virus 2020-05-19 Completed Universit y of Vaccine 00:00:00 [facility] Influenza Virus 2020-05-19 Completed Universit y of Vaccine 00:00:00 [facility] Influenza Virus 2020-05-16 Completed Universit y [...] 2019-05-21 Completed University of VACCINE 00:00:00 [facility] TDAP (ADACEL) 2019-05-21 Completed University of VACCINE 00:00:00 [facility] TDAP (ADACEL) 2019-05-21 Completed University of VACCINE 00:00:00 [facility] TDAP (ADACEL) 2019-05-21 Completed University of VACCINE 00:00:00 [facility] TDAP (ADACEL) 2019-05-21 Completed University of VACCINE 00:00:00 [facility] Influenza Virus 2019-02-06 Completed Universit y of Vaccine [place] .5 mL 00:00:00 [facility] IM 6+ MO Branch Influenza Virus 2019-02-06 Completed Universit y of Vaccine [place] .5 mL 00:00:00 [place] Medical IM 6+ MO Branch Influenza Virus 2019-02-06 Completed Universit y of Vaccine [place] .5 mL 00:00:00 [facility] IM 6+ MO Branch Influenza Virus 2019-02-06 Completed Universit y of Vaccine [place] .5 mL 00:00:00 [facility] IM 6+ MO Branch Influenza Virus 2019-02-06 Completed Universit y of Vaccine [place] .5 mL 00:00:00 [facility] 6+ MO Branch Vital Signs Vital Name Observation Time Observation Value Comments Source Systolic blood 2022-01-18 14:50:00 144 mm[Hg] Univer sity of pressure [place] [facility] Diastolic blood 2022-01-18 14:50:00 92 mm[Hg] Unive rsity of pressure [facility] Heart rate 2022-01-18 14:50:00 94 /min Universi ty of [place] [facility] Respiratory rate 2022-01-18 14:50:00 20 /min Univ ersity of [place] [facility] Oxygen saturation in 2022-01-18 14:50:00 99 /min University of Arterial blood by [place] [facility] yessi Pulse oximetry Branch Body weight 2022-01-18 10:18:00 54.432 kg Universi ty of [place] Medical [place] BMI 2022-01-18 10:18:00 22.67 kg/m2 Universi ty of [facility] Body temperature 2022-01-18 10:15:00 36.72 [place] [facility] Systolic blood 2022-01-15 15:48:26 125 mm[Hg] [facility] Diastolic blood 2022-01-15 15:48:26 85 mm[Hg] [facility] Heart rate 2022-01-15 15:48:26 95 /min [facility] Respiratory rate 2022-01-15 15:48:26 18 /min [facility] Oxygen saturation in 2022-01-15 15:48:26 98 /min [facility] Arterial blood by [place] [facility] Pulse oximetry Branch Body temperature 2022-01-15 13:32:00 37.11 Irene [facility] Body height 2022-01-15 13:32:00 154.9 cm [facility] Body weight 2022-01-15 13:32:00 54.432 kg [facility] BMI 2022-01-15 13:32:00 22.67 kg/m2 [facility] Systolic blood 2022-01-09 00:37:11 127 mm[Hg] [facility] Diastolic blood 2022-01-09 00:37:11 90 mm[Hg] Unive rsity of pressure [facility] Heart rate 2022-01-09 00:37:11 94 /min Universi ty of [facility] Body temperature 2022-01-09 00:37:11 37.11 Irene [facility] 2022-01-09 00:37:11 16 /min [facility] Oxygen saturation in 2022-01-09 00:37:11 97 /min [facility] Arterial blood by [facility] Pulse oximetry Branch Body height 2022-01-08 23:03:00 154.9 cm Universi ty [facility] Body weight 2022-01-08 23:03:00 58.06 kg Universi ty [facility] BMI 2022-01-08 23:03:00 24.19 kg/m2 [facility] Systolic blood 2021-12-12 18:00:00 126 mm[Hg] [facility] Diastolic blood 2021-12-12 18:00:00 87 mm[Hg] [facility] Heart rate 2021-12-12 18:00:00 86 /min [facility] Body temperature 2021-12-12 18:00:00 36.89 Irene [facility] Respiratory rate 2021-12-12 18:00:00 18 /min [facility] Body height 2021-12-12 18:00:00 154.9 cm [facility] Body weight 2021-12-12 18:00:00 57.153 kg Universi ty [facility] BMI 2021-12-12 18:00:00 23.81 kg/m2 [facility] Procedures Procedure Date / Time Performing Clinician Source Performed US GALL BLADDER 2022-01-18 12:31:09 Bernardo [facility] US PELVIS COMPLETE WITH 2022-01-18 12:21:13 Melvin Zhao [facility] TRANSVAGINAL [facility] CT ABDOMEN PELVIS W 2022-01-18 11:20:50 Melvin Zhao [facility] CONTRAST [facility] POCT TEST 2022-01-18 10:57:00 Jayy Kennedy [facility] COVID-19 (ID NOW RAPID 2022-01-18 10:57:00 Jayy Kennedy [facility] TESTING) Medical Branch URINALYSIS 2022-01-18 10:47:00 [facility] LIPASE 2022-01-18 10:29:00 Jayy [facility] TEST, SERUM 2022-01-18 10:29:[address] [facility] HEPATIC FUNCTION PANEL 2022-01-18 10:29:00 Jayy Kennedy [facility] ([id number]) (ALB,T.PRO,BILI Medical Branch T,BU/BC,ALT,AST,ALK PHOS) BASIC METABOLIC PANEL 2022-01-18 10:29:00 Jayy Kennedy [facility] (NA, K, CL, CO2, Medical Branch GLUCOSE, BUN, CREATININE, CA) CBC WITH DIFF 2022-01-18 10:29:00 Jayy [facility] CONSENT/REFUSAL FOR 2022-01-18 10:13:31 Doctor Unassigned, No [facility] Name [facility] CT HEAD WO CONTRAST 2022-01-15 15:22:29 Kenny [facility] TEST, SERUM 2022-01-15 14:36:00 Kenny [facility] BASIC METABOLIC PANEL 2022-01-15 14:36:00 Kenny [facility] (NA, K, CL, CO2, [facility] Branch GLUCOSE, BUN, CREATININE, CA) CBC WITH DIFF 2022-01-15 14:36:00 Kenny [facility] CONSENT/REFUSAL FOR 2022-01-15 13:28:12 Doctor Unassigned, No [facility] Name Medical Branch XR CERVICAL SPINE 4 VW 2022-01-09 00:29:16 Dom Humberto [facility] XR LUMBAR SPINE 4 VW 2022-01-09 00:29:[address] [facility] XR SPINE THORACIC 3 VW 2022-01-09 00:29:16 Humberto Fernandes [facility] URINALYSIS 2022-01-08 23:50:00 Humberto Fernandes [facility] CONSENT/REFUSAL FOR 2022-01-08 22:51:08 Doctor Unassigned, No Un [facility] DIAGNOSIS AND TREATMENT Name Medical Branch GALV ONLY - VAGINAL 2021-12-12 18:37:00 Prasanna Vargas [facility] PATHOGENS BY NUCLEIC Medical Bra nch ACID TESTING URINE CULTURE 2021-12-12 18:32:00 Prasanna Vargas [facility] o f [facility] POCT TEST 2021-12-12 18:31:00 Prasanna Vargas [facility] POCT URINALYSIS W/O 2021-12-12 18:31:00 [facility] SPECIFIC GRAVITY [facility] Plan of Care Planned Activity Planned Date Details Comments Source Future Scheduled 2029-05-21 DTaP,Tdap,and Td Univers [facility] Test 00:00:00 Vaccines (2 - Td) Medical Br anch [code = DTaP,Tdap,and Td Vaccines (2 - Td)] Future Scheduled 2021-09-06 Depression screening [facility] Test 00:00:00 (procedure) [code = Medical Branch 892735175] Future Scheduled 2016-02-19 Screening for [facility] Test 00:00:00 malignant neoplasm Medical B ranch of cervix (procedure) [code = 467932345] Future Scheduled 2013 Hepatitis C [facility] Test 00:00:00 screening Medical Branch (procedure) [code = 404147487] Future Scheduled 2011 SARS-CoV-2 [facility] Test 00:00:00 (COVID-19) Vaccine Medical B ranch (1) [code = SARS-CoV-2 (COVID-19) Vaccine (1)] Future Scheduled 2006 HPV VACCINES (1 - Univer [facility] Test 00:00:00 2-dose series) [code Medical Branch = HPV VACCINES (1 - 2-dose series)] Encounters Start End Encounter Admission Attending Care Care Encounter Source Date/Time Date/Time Type Type Clinicians Facility Department ID 2022-12-12 2022-12-12 Outpatient R PRASANNA VARGAS [facility] [id number] Univers 09:30:00 09:30:00 [id number] ity [facility] 2022-01-22 2022-01-22 Outpatient R ERAN [facility] [id number] Univers 11:00:00 11:00:00 VIJAY [id number] ity [facility] 2022-01-22 2022-01-22 Outpatient R ERAN [facility] [id number] Univers 11:00:00 11:00:00 [facility] 2022-01-18 Emergency X GARDENIA, [facility] ERT [id number] Univers 05:17:00 10:25:00 BERNARDO [facility] 2022-01-18 2022-01-18 Emergency Jayy Kennedy W TRAUMA 1.2.840.11 [id number] Univers 05:17:00 10:25:00 Bernardo Levy [facility] [id number] ity of 4.2.7.2.686 [facility] [id number] [facility] 014 Branch 2022-01-15 2022-01-15 Emergency Larry Perez R [facility] 1.2.840.1 [id number] Univers 08:34:00 10:49:00 Maura Cox [id number] ity of [place] 4.2.7.2.686 [facility] [id number] [address] 2022-01-15 2022-01-15 Emergency X KENNY [facility] ERT [id number] Univers 08:34:00 10:49:00 MAURA itchino [facility] 2022-01-08 2022-01-08 Emergency X DOM, [facility] ERT [id number] Univers 18:04:00 20:09:00 HUMBERTO [facility] 2022-01-08 2022-01-08 [facility] 1.2.840.114 [id number] Univers 18:04:00 20:09:00 Humberto LAWSON 350.1.13.10 i ty of [place] 4.2.7.2.686 [facility] [id number] [address] 2021-12-12 2021-12-12 Office Prasanna Vargas [facility] 1.2.840.114 [id number] Univers 13:30:00 13:40:21 Visit Suzanna Carnes 350.1.13.10 itchino [facility] 4.2.7.2.686 Terrie dailey PROFESSIO [id number] Mo dical NAL [address] Branch BUILDING 2021-12-12 2021-12-12 Outpatient R DEYVI [facility] [id number] [facility] 13:30:00 13:40:21 SUZANNA ity [facility] 2020-11-10 2020-11-10 Urgent Lukelsey, Alissa [facility] 1.2.840.114 [id number] 18:42:46 19:53:43 [facility] [id number] [place] 4.2.7.2.686 Professio [id number] nal [address] One 2020-10-31 2020-10-31 Emergency Kaycee Méndez [facility] 1.2.840.114 [id number] 18:52:00 22:15:00 Sharlene Lawson 350.1.13.10 [place] 4.2.7.2.686 [place] [id number] 2020-10-31 2020-10-31 Orders Doctor JORDAN 1.2.840.114 [id number] 00:00:00 00:00:00 Only Unassigned, YAZMIN 350.1.13.10 [facility] 4.2.7.2.686 [id number] 2020-10-20 2020-10-20 Emergency Dev, K [facility] 1.2.840.114 [id number] 14:02:00 17:13:00 Sharlene Lawson 350.1.13.10 [place] 4.2.7.2.686 [place] [id number] 2020-10-14 2020-10-14 [facility] Prasanna Vargas [facility] 1.2.840.114 [id number] 10:00:00 23:59:00 Encounter Jm Lawson 350.1.13.10 [place] 4.2.7.2.686 [place] [id number] 2020-10-09 2020-10-09 Emergency Dalton, [facility] [id number] [id number] 12:00:00 15:57:00 Anna Lawson 350.1.13.10 [place] 4.2.7.2.686 [place] [id number] 2020-10-06 2020-10-06 Office Prasanna Vargas [facility] [id number] 08:53:00 09:46:44 Visit Jm Lawson 350.1.13.10 [place] 4.2.7.2.686 Professio [id number] nal [address] 2020-03-04 2020-03-04 Refill Lopez Hitchcock [facility] 1.2.840.114 [id number] 00:00:00 00:00:00 MULTISPEC 350.1.13.10 [place] 4.2.7.2.686 [place] [id number] AND WEI [facility] Results Test Description Test Time Test Comments Results Result Comments Source LIPASE 2022-01-18 12:45:21 Test Item Value Reference Range Interpretation Comme nts LIPASE (test code = 7683020852) 41 U/L 0-220 Lab Interpretation (test code = 34730-7) [id number] 10:57:00 Test Item Value Reference Range Interpretation Comments POCT PREG (test code = 1605) Negative On board controls acceptable with Present C Line (test code = 3574) POCT PREG LOT # (test code = 3575) [id number] POCT PREG TEST DATE (test 03/12/2023 code = 3576) Lab Interpretation (test code = Normal 71514-9) [facility] METABOLIC PANEL (NA, K, CL, CO2, GLUCOSE, BUN, CREATININE, CA)2022-01-18 10:56:51 Test Item Value Reference Range Interpretation Comments NA (test code = 137 mmol/L 135-145 7946222107) K (test code = 4.6 mmol/L 3.5-5 Slight 8975587163) hemolysis CL (test code = 108 mmol/L 98-108 6861471288) CO2 TOTAL (test code 22 mmol/L 23-31 L = 3105287775) AGAP (test code = 2-16 6600491245) BUN (test code = 11 mg/dL 7-23 Slight 1479442702) hemolysis GLUCOSE (test code = 83 mg/dL 70-110 0208824537) CREATININE (test code 0.68 mg/dL 0.5-1.04 = 6366272854) CALCIUM (test code = 8.8 mg/dL 8.6-10.6 5314492051) eGFR (test code = mL/min/1.73m2 0410234043) WESLEY (test code = WESLEY) Association of [...] tests). Lab Interpretation Abnormal (test code = 15380-4) [facility] (ALB,T.PRO,BILI T,BU/BC,ALT,AST,ALK PHOS)2022-01-18 10:56:51 Test Item Value Reference Range Interpretation Comments TOTAL BILI (test code = 9857886726) 0.6 mg/dL 0.1-1.1 BILI UNCON (test code = 4872539327) 0.1 mg/dL 0.1-1.1 BILI CONJ (test code = 3670035125) 0.0 mg/dL 0-0.3 T PROTEIN (test code = 7507478610) 8.6 g/dL 6.3-8.2 H ALBUMIN (test code = 3958022530) 5.1 g/dL 3.5-5 H ALK PHOS (test code = 8189172404) 79 U/L 34-122 ALTv (test code = 1742-6) 117 U/L 5-35 H AST(SGOT) (test code = 0980928860) 163 U/L 13-40 H Lab Interpretation (test code = Abnormal 21354-8) [facility], [id number] 10:54:25 Test Item Value Reference Range Interpretation Comments PREG SERUM (test code Negative = 4267002019) WESLEY (test code = WESLEY) Less than 10 IU/L. ?If low titer or ectopic is suspected, resubmit specimen in 48-72 hours. [facility] [id number] 10:40:49 Test Item Value Reference Range Interpretation Comments WBC (test code = See_Comment [Automated 3019-2) message] The sy stem which generated this result transmitted reference range : 4.30 - 11.10 10*3/?L. The reference range was not used to interpret this result as normal/abnormal . RBC (test code = See_Comment [Automated 421-8) message] The sy stem which generated this [...] RDW-SD (test code = 45.3 fL 39-49.9 14078-1) RDW-CV (test code = 14.5 % 12-15.5 788-0) PLT (test code = See_Comment [Automated 777-3) message] The sy stem which generated this result transmitted reference range : 166 - 358 10*3/ ?L. The reference r david was not used to interpret this result as normal/abnormal . MPV (test code = 9.5 fL 9.5-12.9 27020-3) NRBC/100 WBC (test See_Comment [Automat ed code = 6597195779) message] The system which generated this result transmitted reference range : 0.0 - 10.0 /100 WBCs. The refer ence range was not u sed to interpret th is result as normal/abnormal . NRBC x10^3 (test code See_Comment [Auto mated = 3486262737) message] The s ystem which generated this result transmitted reference range : 10*3/?L. The reference range was not used to interpret this result as normal/abnormal . GRAN MAT (NEUT) % 47.6 % (test code = 770-8) IMM GRAN % (test code 0.60 % = 8530094958) LYMPH % (test code = 39.9 % 736-9) MONO % (test code = 5.9 % 5905-5) EOS % (test code = 5.3 % 713-8) BASO % (test code = 0.7 % 706-2) GRAN MAT x10^3(ANC) 4.45 10*3/uL 1.88-7.09 (test code = 5056669077) IMM GRAN x10^3 (test 0.06 10*3/uL 0-0.06 code = 1025214816) LYMPH x10^3 (test code 3.74 10*3/uL 1.32-3.29 H = 731-0) MONO x10^3 (test code 0.55 10*3/uL 0.33-0.92 = 742-7) EOS x10^3 (test code = 0.50 10*3/uL 0.03-0.39 H 711-2) BASO x10^3 (test code 0.07 10*3/uL 0.01-0.07 = 704-7) Lab Interpretation Abnormal (test code = 42741-2) [facility] [id number] 18:31:00 Test Item Value Reference Range Interpretation Comments POCT PREG (test code = 1605) Negative On board controls acceptable with C Yes Line (test code = 3574) POCT PREG LOT # (test code = 3575) POCT PREG TEST DATE (test code = 3576) [facility] W/O SPECIFIC [id number] 18:31:00 Test Item Value Reference Range Interpretation [...] code = 3257) Trace Negative - Negative [facility]"
[2022-01-21 09:24] LABS: Urine Blood Trace-intact (Negative); Urine Glucose Negative (Negative); Urine Protein Negative (Negative)
[2022-01-21 09:27] LABS: Absolute Lymphocytes (CBC) 1.8 K/uL (0.7-4.9); Hematocrit 39.6 % (36.0-45.0); Lymphocytes % 22.4 % (15.3-44.8); MCV 85.5 fL (80-100); MPV 7.2 fL (7.6-11.3); RBC Red Blood Cell Count 4.63 M/uL (3.86-4.86)
[2022-01-21] MEDS ORDERED: MORPHINE 2 MG/ML SYR ONE ×2 (09:32→11:24)
[2022-01-21] MEDS ORDERED: ONDANSETRON 4 MG/2 ML VIAL ONE (09:33)
[2022-01-21] MEDS ORDERED: NA CHLORIDE 0.9% 1,000 ML ONE (09:33)
[2022-01-21] MEDS ORDERED: FAMOTIDINE 20 MG/2 ML VIAL IV ONE (09:39)
--- NOTE | 2022-01-21 09:39 | RAD REPORT ---
EXAM DESCRIPTION: CTAbdomen Pelvis W Contrast - 01/21/2022 9:31 am CLINICAL HISTORY: Abdominal pain. sadf COMPARISON: Abdomen Pelvis W Contrast dated 01/13/2022; Abdomen Pelvis W Contrast dated 03/27/2021 ; Abdomen Pelvis W Contrast dated 02/23/2021; Abdomen Pelvis W Contrast dated 10/14/2020; Head paul o dated 12/24/2021 TECHNIQUE: Biphasic CT imaging of the abdomen and pelvis was performed with 100 ml non-ionic IV cont rast. All CT scans are performed using dose optimization technique as appropriate and may include automated exposure control or mA/KV adjustment according to patient size. FINDINGS: The lung bases are clear. The liver, spleen, pancreas, adrenal glands and kidneys are within normal limits. Tiny calculi may be present left kidney. No bowel obstruction, free air, free fluid or abscess. Moderate amount of stool is present throughout the colon. The appendix is normal. No evidence of significant lymphadenopathy. Trace amount of flui d is seen in the right lower quadrant. . No suspicious bony findings. IMPRESSION: Normal appendix. Trace amount of fluid right lower quadrant may be related to recent ovarian cyst rupture. Punctate left nephrolithiasis without hydronephrosis.
[2022-01-21 09:45] LABS: Albumin 3.7 g/dL (3.4-5.0); Bilirubin Total 0.3 mg/dL (0.2-1.0); Potassium 3.5 mmol/L (3.5-5.1); Protein, Total 7.8 g/dL (6.4-8.2)
[2022-01-21] MEDS ORDERED: METHYLPREDNISOLONE 125 MG INJ ONE (09:59)
[2022-01-21] MEDS ORDERED: DIPHENHYDRAMINE 50 MG/ML VIAL ONE (10:00)
[2022-01-21] MEDS ORDERED: KETOROLAC 30 MG/ML INJ ONE (10:32)
[2022-01-21] MEDS ORDERED: PROMETHAZINE INJ 25 MG/ML AMP ONE (10:32)
--- NOTE | 2022-01-21 11:06 | ER ---
Nurse's Notes [facility] Name: Natanael Dyson Age: 26 yrs Sex: Female : 1995 Arrival Date: 01/21/2022 Time: 08:39 Bed 13 Private MD: Diagnosis: Other ovarian cysts Presentation: 01/21 08:51 Chief complaint: Patient states: Mid abdominal pain, radiates to RUQ, N/V, last BM 2 jl7 days ago, not passing gas. Rash all over torso x 1 day. Coronavirus screen: At this time, the client does not indicate any symptoms associated with coronavirus-19. Ebola Screen: No symptoms or risks identified at this time. Initial Sepsis Screen: Does the patient meet any 2 criteria? No. Patient's initial sepsis screen is negative. Does the patient have a suspected source of infection? No. Patient's initial sepsis screen is negative. Risk Assessment: Do you want to hurt yourself or someone else? Patient reports no desire to harm self or others. Onset of symptoms was January 19, 2022. Care prior to arrival: None. 08:51 Method Of Arrival: Ambulatory [facility] 08:51 Acuity: THIERNO 3 jl7 Triage Assessment: 08:53 General: Appears in no apparent distress. uncomfortable, Behavior is cooperative, jl7 anxious, crying. Pain: Complains of pain in epigastric area Pain radiates to right upper quadrant Pain currently is 10 out of 10 on a pain scale. Quality of pain is described as stabbing, Pain began 2-3 days ago. Is continuous. GI: Reports upper abdominal pain, nausea, vomiting. 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 - Social history:: Smoking status: Patient denies any tobacco usage or history of. Screenin:01 Abuse screen: Denies threats or abuse. Denies injuries from another. Nutritional ko1 screening: No deficits noted. Tuberculosis screening: No symptoms or risk factors identified. Fall Risk Assessment: 10:01 General: Appears in no apparent distress. Pain: Complains of pain in anterior aspect of ko1 right lateral abdomen and right upper quadrant. Neuro: No deficits noted. Cardiovascular: No deficits noted. Respiratory: No deficits noted. GI: Bowel sounds present X 4 quads. Abdomen is tender to palpation in anterior aspect of right lateral abdomen and right upper quadrant. : No deficits noted. EENT: No deficits noted. Derm: Reports itching. Musculoskeletal: No deficits noted. 10:10 GI: Pt is actively vomiting undigested food. ko1 Vital Signs: 08:51 BP 156 / 106; Pulse 140; Resp 17; Temp 99.1; Pulse Ox 100% ; Weight 54.43 kg; Height 5 jl7 ft. 1 in. (154.94 cm); Pain 10/10; 10:01 BP 90 / 73; Pulse 103; Resp 18; Temp 98.1; Pulse Ox 97% ; Pain 10/10; ko1 10:35 BP 134 / 96; Pulse 128; Resp 22; Pulse Ox 99% ; ko1 11:01 BP 136 / 94; Pulse 100; Resp 16; Pulse Ox 100% ; Pain 5/10; ko1 08:51 Body Mass Index 22.67 (54.43 kg, 154.94 cm) jl7 Vitals: 10:01 Cardiac Rhythm Assessment Regular Sinus tach. ko1 [place] Coma Score: 10:01 Eye Response: spontaneous(4). Verbal Response: oriented(5). Motor Response: obeys ko1 commands(6). Total: 15. ED Course: 08:39 Patient arrived in ED. mr 08:39 [facility] jl9 08:39 Justin Estrella MD is Attending Physician. jl9 08:53 Triage completed. jl7 08:53 Arm band placed on right wrist. jl7 09:18 Inserted saline lock: 20 gauge in right forearm, using aseptic technique. Blood mb7 collected. 09:18 Lactate Sent. mb7 09:19 CBC with Diff Sent. mb7 09:19 CMP Sent. mb7 09:19 Lipase Sent. mb7 09:27 Pam Frausto, RN is Primary Nurse. ko1 09:33 CT Abd/Pelvis - IV Contrast Only In Process Unspecified. EDMS 10:01 Patient has correct armband on for positive identification. Bed in low position. Call ko1 light in reach. Side rails up X 1. 10:01 Pulse ox on. NIBP on. Door closed. Noise minimized. Lights dimmed. ko1 11:07 No provider procedures requiring assistance completed. ko1 11:22 IV discontinued, intact, bleeding controlled, No redness/swelling at site. Pressure ko1 dressing applied. Administered Medications: 09:45 Drug: NS 0.9% 1000 ml Route: IV; Rate: 1 bolus; Site: right forearm; ko1 09:46 Drug: Pepcid (famotidine) 20 mg Route: IVP; Site: right forearm; ko1 09:47 Drug: Zofran (Ondansetron) 4 mg Route: IVP; Site: right forearm; ko1 09:48 Drug: morphine 2 mg Route: IVP; Infused Over: 4 mins; Site: right forearm; ko1 09:51 Drug: Benadryl (diphenhydrAMINE) 50 mg Route: IVP; Site: right forearm; ko1 09:51 Drug: SOLU-Medrol (methylPREDNISolone sodium succinate) 125 mg Route: IM; Site: left ko1 gluteus; 10:30 Drug: Phenergan (promethazine) 25 mg Route: IVP; Site: right forearm; ko1 10:34 Drug: Ketorolac 30 mg Route: IVP; Site: right forearm; ko1 11:16 Drug: morphine 2 mg Route: IVP; Infused Over: 4 mins; Site: right forearm; ko1 Medication: 10:01 VIS not applicable for this client. ko1 Intake: 10:59 IV: 1000ml (IV Fluid); Total: 1000ml. ko1 Output: 10:35 Gastric: 400ml (Emesis); Total: 400ml. ko1 Outcome: 11:06 Discharge ordered by . chu 11:07 Condition: improved ko1 11:22 Discharged to home ambulatory. ko1 11:22 Discharge instructions given to patient, Instructed on discharge instructions, follow up and referral plans. medication usage, Demonstrated understanding of instructions, follow-up care, medications, Prescriptions given X 2. 11:23 Patient left the ED. ko1 Signatures: Dispatcher [employer] [facility] Kymberly Murry Jahala, RN RN jl7 Breneman, Kymberly mb7 Parsons, Carlos jl9 Jett, Pam, RN RN ko1 Corrections: (The following items were deleted from the chart) 10:06 10:01 BP 90 / 73; Pulse 62bpm; Resp 18bpm; Pulse Ox 97%; Temp 98.1F; Pain 02/19; ko1 ko1
--- NOTE | 2022-01-21 11:06 | EDPHYS ---
Physician Documentation [facility] Name: Natanael Dyson Age: 26 yrs Sex: Female : 1995 Arrival Date: 01/21/2022 Time: 08:39 Bed 13 Private MD: ED Physician Justin Estrella HPI: 01/21 08:55 This 26 yrs old Female presents to ER via Ambulatory with complaints of jl9 Abdominal Pain. Patient reports that pain has worsened over the last 2 days. Last BM 3 days ago. Patient also c/o rash/ allergic reaction to abdomen .. 08:55 The patient presents with abdominal pain in the epigastric area. Onset: The jl9 symptoms/episode began/occurred suddenly, 2 day(s) ago. The symptoms do not radiate. Associated signs and symptoms: Pertinent positives: nausea and vomiting. The symptoms are described as crampy. Modifying factors: The symptoms are alleviated by nothing, the symptoms are aggravated by nothing. Severity of pain: in the emergency department the pain is a 8 / 10. The patient has not experienced similar symptoms in the past. 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 - Social history:: Smoking status: Patient denies any tobacco usage or history of. ROS: 08:57 Constitutional: Negative for fever, chills, and weight loss, Eyes: Negative for injury, jl9 pain, redness, and discharge, ENT: Negative for injury, pain, and discharge, Neck: Negative for injury, pain, and swelling, Cardiovascular: Negative for chest pain, palpitations, and edema, Respiratory: Negative for shortness of breath, cough, wheezing, and pleuritic chest pain. 08:57 Back: Negative for injury and pain, : Negative for injury, bleeding, discharge, and swelling, MS/Extremity: Negative for injury and deformity, Skin: Negative for injury, rash, and discoloration, Neuro: Negative for headache, weakness, numbness, tingling, and seizure, Psych: Negative for depression, anxiety, suicide ideation, homicidal ideation, and hallucinations, Endocrine: Negative for neck swelling, polydipsia, polyuria, polyphagia, and marked weight changes, Hematologic/Lymphatic: Negative for swollen nodes, abnormal bleeding, and unusual bruising. 08:57 Abdomen/GI: Positive for abdominal pain, nausea, vomiting. 08:57 Allergy/Immunology: Positive for rash, abdomen. jl9 Exam: 08:57 Constitutional: This is a well developed, well nourished patient who is awake, alert, jl9 and in no acute distress. Head/Face: Normocephalic, atraumatic. Eyes: Pupils equal round and reactive to light, extra-ocular motions intact. Lids and lashes normal. Conjunctiva and sclera are non-icteric and not injected. Cornea within normal limits. Periorbital areas with no swelling, redness, or edema. ENT: Mucous membranes moist. Neck: Trachea midline, no thyromegaly or masses palpated, and no cervical lymphadenopathy. Supple, full range of motion without nuchal rigidity, or vertebral point tenderness. No Meningismus. Chest/axilla: Normal chest wall appearance and motion. Nontender with no deformity. No lesions are appreciated. Cardiovascular: Regular rate and rhythm with a normal S1 and S2. No gallops, murmurs, or rubs. Normal PMI, no JVD. No pulse deficits. Respiratory: Lungs have equal breath sounds bilaterally, clear to auscultation and percussion. No rales, rhonchi or wheezes noted. No increased work of breathing, no retractions or nasal flaring. 08:57 Skin: Warm, dry with normal turgor. Normal color with no lesions, and no evidence of cellulitis. Mild diffuse rash on abdomen. MS/ Extremity: Pulses equal, no cyanosis. Neurovascular intact. Full, normal range of motion. Neuro: Awake and alert, GCS 15, oriented to person, place, time, and situation. Cranial nerves II-XII grossly intact. Motor strength 5/5 in all extremities. Sensory grossly intact. Cerebellar exam normal. Normal gait. Psych: Awake, alert, with orientation to person, place and time. Behavior, mood, and affect are within normal limits. 08:57 Abdomen/GI: Inspection: abdomen appears normal, Bowel sounds: normal, Palpation: mild abdominal tenderness, in all quadrants. Vital Signs: 08:51 BP 156 / 106; Pulse 140; Resp 17; Temp 99.1; Pulse Ox 100% ; Weight 54.43 kg; Height 5 jl7 ft. 1 in. (154.94 cm); Pain 10/10; 10:01 BP 90 / 73; Pulse 103; Resp 18; Temp 98.1; Pulse Ox 97% ; Pain 10/10; ko1 10:35 BP 134 / 96; Pulse 128; Resp 22; Pulse Ox 99% ; ko1 11:01 BP 136 / 94; Pulse 100; Resp 16; Pulse Ox 100% ; Pain 5/10; ko1 08:51 Body Mass Index 22.67 (54.43 kg, 154.94 cm) jl7 Russell Coma Score: 10:01 Eye Response: spontaneous(4). Verbal Response: oriented(5). Motor Response: obeys ko1 commands(6). Total: 15. MDM: 08:39 Patient medically screened. jl9 08:57 Data reviewed: vital signs, nurses notes. jl9 11:05 Counseling: I had a detailed discussion with the patient and/or guardian regarding: the [facility] historical points, exam findings, and any diagnostic results supporting the discharge/admit diagnosis, lab results, radiology results, the need for outpatient follow up, to return to the emergency department if symptoms worsen or persist or if there are any questions or concerns that arise at home. 11:07 Response to treatment: the patient's symptoms have resolved after treatment, the jl9 patient's pain is gone. 01/21 08:55 Order name: CBC with Diff; Complete Time: 09:44 01/21 08:55 Order name: CMP; Complete Time: 10:04 01/21 08:55 Order name: Lipase; Complete Time: 10:04 01/21 08:55 Order name: Lactate; Complete Time: 09:44 01/21 09:24 Order name: Urine --Ancillary (enter results) eb 01/21 09:24 Order name: Urine Dipstick-Ancillary; Complete Time: 09:44 EDMS 01/21 08:55 Order name: CT Abd/Pelvis - IV Contrast Only; Complete Time: 09:44 [facility] 01/21 08:55 Order name: IV Saline Lock; Complete Time: 09:18 01/21 08:55 Order name: Labs collected and sent; Complete Time: 09:18 01/21 08:55 Order name: Urine Dipstick-Ancillary (obtain specimen); Complete Time: 09:24 01/21 08:55 Order name: Urine Test (obtain specimen); Complete Time: 09:24 Administered Medications: 09:45 Drug: NS 0.9% 1000 ml Route: IV; Rate: 1 bolus; Site: right forearm; ko1 09:46 Drug: Pepcid (famotidine) 20 mg Route: IVP; Site: right forearm; ko1 09:47 Drug: Zofran (Ondansetron) 4 mg Route: IVP; Site: right forearm; ko1 09:48 Drug: morphine 2 mg Route: IVP; Infused Over: 4 mins; Site: right forearm; ko1 09:51 Drug: Benadryl (diphenhydrAMINE) 50 mg Route: IVP; Site: right forearm; ko1 09:51 Drug: SOLU-Medrol (methylPREDNISolone sodium succinate) 125 mg Route: IM; Site: left ko1 gluteus; 10:30 Drug: Phenergan (promethazine) 25 mg Route: IVP; Site: right forearm; ko1 10:34 Drug: Ketorolac 30 mg Route: IVP; Site: right forearm; ko1 11:16 Drug: morphine 2 mg Route: IVP; Infused Over: 4 mins; Site: right forearm; ko1 Disposition Summary: 01/21/22 11:06 Discharge Ordered Location: Home jl9 Condition: Stable jl9 Diagnosis - Other ovarian cysts jl9 Followup: jl9 - With: Private Physician - When: 1 - 2 days - Reason: Recheck today's complaints, Continuance of care, Re-evaluation by your physician Discharge Instructions: - Discharge Summary Sheet jl9 - Ovarian Cyst, [id number] jl9 Forms: - Medication Reconciliation Form jl9 - Thank You Letter jl9 - Antibiotic Education jl9 - Prescription Opioid Use jl9 Prescriptions: - Tramadol 50 mg Oral Tablet - take 1 tablet by ORAL route every 8 hours as needed; 12 tablet; Refills: 0, jl9 Product Selection Permitted - ondansetron 8 mg Oral tablet,disintegrating - take 1 tablet by ORAL route every 8 hours As needed; 12 tablet; Refills: 0, jl9 Product Selection Permitted Signatures: Dispatcher [employer] Matty Rosas RN RN jl7 Carlos Parsons jl9 Pam Frausto RN RN ko1 Corrections: (The following items were deleted from the chart) 10:45 08:55 This 26 yrs old Female presents to ER via Ambulatory with complaints of jl9 Abdominal Pain. Patient reports that pain has worsened over the last 2 days. Last BM 3 days ago. . jl9 10:46 08:57 Back: Negative for injury and pain, : Negative for injury, bleeding, discharge, jl9 and swelling, MS/Extremity: Negative for injury and deformity, Skin: Negative for injury, rash, and discoloration, Neuro: Negative for headache, weakness, numbness, tingling, and seizure, Psych: Negative for depression, anxiety, suicide ideation, homicidal ideation, and hallucinations, Allergy/Immunology: Negative for hives, rash, and allergies, Endocrine: Negative for neck swelling, polydipsia, polyuria, polyphagia, and marked weight changes, Hematologic/Lymphatic: Negative for swollen nodes, abnormal bleeding, and unusual bruising, jl9 10:46 08:57 Skin: Warm, dry with normal turgor. Normal color with no rashes, no lesions, and jl9 no evidence of cellulitis. MS/ Extremity: Pulses equal, no cyanosis. Neurovascular intact. Full, normal range of motion. Neuro: Awake and alert, GCS 15, oriented to person, place, time, and situation. Cranial nerves II-XII grossly intact. Motor strength 5/5 in all extremities. Sensory grossly intact. Cerebellar exam normal. Normal gait. Psych: Awake, alert, with orientation to person, place and time. Behavior, mood, and affect are within normal limits. jl9
[2022-01-21 11:52] VITALS: TEMP 98.1
[2022-01-21 12:02] VITALS: BP 136/94; O2SAT 100
== END 2022-01-21 11:23 | disposition home or self-care (01) ==
LOC: ER 08:38
DX: N83.299 Other ovarian cyst, unspecified side (principal); R21 Rash and other nonspecific skin eruption; I10 Essential (primary) hypertension; Z88.8 Allergy status to other drugs, medicaments and biological substances
CPT/HCPCS: 85025; 36415; 81025; 83605; 81003; 83690; 80053; 74177; 96375; 96372; 96374; 99284; Q9967; J2550; J1200; J2270 ×2; J7030; J2930; J2405

== ENCOUNTER 2022-01-26 08:28 | Emergency (ER) | payer OTHER ==
--- OUTSIDE RECORDS SUMMARY | 2022-01-26 08:33 | XMS REPORT | Continuity of Care Document ---
:1995 Author Organization [facility] t Address [address] [place] [address] Care Team Providers Name Role Phone Sonny FELIX, Paz Cannon Primary Care Physician [phone] PRASANNA VARGAS Attending Clinician Unavailable Khang FELIX, Prasanna Oneal Attending Clinician VIJAY BARILLAS Attending Clinician Unavailable BENRARDO LEVY Attending Clinician Unavailable Jayy Kennedy MD Attending Clinician Bernardo Levy MD Attending Clinician MAURA COX Attending Clinician Unavailable Larry Larry Attending Clinician Maura Cox MD Attending Clinician HUMBERTO FERNANDES Attending Clinician Unavailable Humberto Fernandes MD Attending Clinician Suzanna Carnes PA-C Attending Clinician SUZANNA CARNES Attending Clinician Unavailable Alissa Rosales Attending Clinician Kaycee Soares Attending Clinician Doctor Unassigned, [place] Attending Clinician Unavailable Krystle FELIX, Anna Ricketts Attending Clinician Delroy FELIX, Rad Cuello Attending Clinician Lopez Hitchcock MD Attending Clinician BERNARDO LEVY Admitting Clinician Unavailable MAURA COX Admitting Clinician Unavailable HUMBERTO FERNANDES [...] Branch Trouble in Trouble in Disease Active 2021-0 U nivers sleeping sleeping 4-27 ity of 00:00: [place] 00 Medical Branch [...] [place] and advice and advice 00 Co dical for for Branch contracept contracept bonifacio bonifacio management management Routine Routine Disease Resolve 2020-01-05 2020-01-05 Univers d 4-02 00:00:00 22:37:57 [place] [facility] Back pain Back pain Disease Resolve 2020-01-05 2020-01-05 Univers d 4-02 00:00:00 22:37:59 ity of 00:00: [place] [facility] History of History of Disease Resolve 2018-052020-01-05 2020-01-05 Univers tubal tubal d 2- 00:00:00 22:37:56 ity of ligation ligation 00:00: [place] [facility] Anxiety Anxiety Disease Resolve 2018-052020-01-05 2020-01-05 Univers during during d 2- 00:00:00 22:37:53 [place] second 00 [facility] trimester, trimester, Br anch antepartum antepartum [...] 00 Me dical born in born in [facility] hospital by by delivery delivery Normal Normal Disease Resolve 2019-08-13 2019-08-13 Univers labor labor d 3-10 00:00:00 16:34:03 ity of 00:00: [place] 00 [facility] 37 weeks 37 weeks Disease Resolve 2019-08-13 2019-08-13 Univers gestation gestation d 1-02 00:00:00 16:51:42 ity of of of 00:00: [place] 00 [facility] Gastroesop Gastroesop Disease Resolve 2018-052019-08-13 2019-08-13 Univers hageal hageal d 2- 00:00:00 16:33:48 ity of reflux in reflux in 00:[place] [facility] Supervisio Supervisio Disease Resolve 2019-08-13 2019-08-13 Univers [...] Univers d 2-11 00:00:00 12:41:46 ity of 00:: [place] 00 Medical Branch Upper Upper Disease [...] delivery delivery 00:00: [place] affecting affecting 00 [facility] , , Br anch antepartum antepartum Disease [...] , [place] [facility]partum [facility]partum [facility] 39 weeks 39 weeks Disease Resolve 2019-05-30 2019-05-30 Univers gestation gestation d 1-17 00:00:00 21:44:45 ity of of of 00:00: [place] 00 [facility] Branch Disease Resolve 2019-05-28 2019-05-29 Univers [...] 00 Medical Branch Metoclop Propensi Active Anxiety 2021-0 Unive rs ramide ty to 01-08 ity [...] Active Hallucinatio Univers zine ty to ns 2- ity of adverse 00:00: [place] reaction 00 Medical s Branch Prochlor Propensi Active Anxiety 2020- Tolerates Un sushant perazine ty to 05-29 promethaz ity o f adverse 00:00: ine [place] reaction 00 Medical s to Branch drug PROCHLOR DRUG Active Low Anxiety 2020- Univers PERAZINE INGREDI 05-29 ity of 00:00: [place] 00 Medical Branch Prochlor Propensi Active Anxiety 2020- Unive rs perazine ty to 1 ity of adverse 00:00: [place] reaction 00 [...] Active Low Anxiety 2020-0 Univers RAMIDE INGREDI 3 ity of HCL 00:00: [place] 00 Medical [...] ical Branch Alcohol intake 2022-01-18 2022-01-18 Ex-drinker [facility] 00:00:00 00:00:00 (finding) [facility] Exposure to 2022-01-05 2022-01-15 Not sure University SARS-CoV-2 00:00:00 10:37:00 [facility] (event) Branch Tobacco use and 2021-12-12 2021-12-12 Smokeless tobacco Un iversity of exposure 00:00:00 00:00:00 non-user [facility] History SDOH 2019-02-06 2019-02-06 1 University o f Alcohol Frequency 00:00:00 00:00:00 [facility] Sex Ass[birth year] At [birth year] Universit y of 00:00:00 00:00:00 [facility] Smoking Status Start Date Stop Date Source Never smoked tobacco [facility] Medications Ordered Filled Start Stop Current Ordering Indication Dosage Frequency Signature Comments Components Source Medication Medication Date Date Medication? Clinician (SIG) Name Name morpHINE (2 2021- No 4mg 4 mg, Slow Univers mg/mL) 01-18 IV Push, ity of injection 4 15:15: 14:49 ONCE, 1 [place] mg 00 :00 dose, On Medical [facility] 01/18/22 Branch at 1015, STAT ondansetron No 4mg 4 mg, Slow Univers (ZOFRAN 01-18 IV Push, ity of (PF)) 13:30: 13:33 ONCE, 1 [place] injection 4 00 :00 dose, On Medi yessi mg [facility] 01/18/22 Branch at 0830, [place] morpHINE (4 No 4mg 4 mg, Slow Univers mg/mL) 01-18 IV Push, ity of injection 4 13:30: 13:34 ONCE, 1 [place] mg 00 :00 dose, On Medical [facility] 01/18/22 Branch at 0830, STAT morpHINE (4 2021- No 4mg 4 mg, Slow Univers mg/mL) 01-18 IV Push, ity of injection 4 12:30: 11:39 ONCE, 1 [place] mg 00 :00 dose, On Medical [facility] 01/18/22 Branch at 0730, STAT famotidine 2021- [...] Branch at 0630, [place] iodixanoL 2021- No [id number] 80mL 80 mL, U nivers (VISIPAQUE 01-18 Intravenou it y of 270-150 mL) 11:21: 11:15 s, ONCE, 1 [place] injection 00 :00 dose, On Medica l 80 mL Kathie 01/18/22 Branch at 0630, Routine NaCl 0.9% [...] Indication s: acute pain ondansetron 2021-0 Yes [id number] 4mg Take 1 Univers 4 mg 01-18 [id number] tablet by ity of disintegrat 00:00: mouth [place] ing tablet 00 every 8 Medica l (eight) Branch hours as needed for Nausea and Vomiting (N/V). ibuprofen Yes [id number] 600mg Take 1 Univers 600 mg 01-18 [id number] tablet by ity of tablet 00:00: mouth [place] 00 every 6 Medical (six) Branch hours as needed for Pain (scale 4-6). traMADoL 50 0 Yes [id number] 50mg Take 1 Univ ers mg tablet -08 tablet by ity o f 00:00: mouth [place] 00 every 6 Medical (six) Branch hours as needed for Pain (scale 7-10). Indication s: acute pain ondansetron Yes [id number] 4mg Take 1 Univers 4 mg 01-18 [id number] tablet by ity of disintegrat 00:00: mouth [place] ing tablet 00 every 8 Medica l (eight) Branch hours as needed for Nausea and Vomiting (N/V). ibuprofen Yes [id number] 600mg Take 1 Univers 600 mg 01-18 [id number] tablet by ity of tablet 00:00: mouth [place] 00 every 6 Medical (six) Branch hours as needed for Pain (scale 4-6). predniSONE 2021- Yes [id number] 40mg Take 2 Univers 20 mg 01-16 tablets by ity of tablet 00:00: 04:59 mouth in [place] 00 :00 the Medical morning Branch for 7 days. predniSONE 2021- Yes [id number] 40mg Take 2 Univers 20 mg 01-16 tablets by ity of tablet 00:00: 04:59 mouth in [place] 00 :00 the Medical morning Branch for 7 days. morpHINE (4 2021- No 4mg 4 mg, Slow Univers mg/mL) 01-15 IV Push, ity of injection 4 16:15: 15:28 ONCE, 1 [place] mg 00 :00 dose, On Medical 01/15/22 Branch at 1115, [place] proMETHazin 2021- No 12.5mg 12.5 mg, Univers e 01-15 IV ity of (PHENERGAN) 15:30: 15:28 Piggyback, [place] 12.5 mg in 00 :00 ONCE, 1 Medica l NaCl 0.9% dose, On Branch (NS) 50 mL 01/15/22 IV at 1030, piggyback [place] NaCl 0.9% No 1000mL at 999 Uni vers (NS) bolus 01-15 mL/hr, ity of infusion 15:00: 15:38 1,000 mL, [place] as 1,000 mL 00 :00 IV Medical Infusion, Branch ONCE, 1 dose, On Sat01/15/22 at 1000, [place] morpHINE (4 2021- No 4mg 4 mg, Slow Univers mg/mL) 01-15 IV Push, ity of injection 4 15:00: 14:37 ONCE, 1 [place] mg 00 :00 dose, On Medical 01/15/22 Branch at 1000, [place] ondansetron 2021- No 8mg 8 mg, Slow Univers (ZOFRAN 01-15 IV Push, ity of (PF)) 14:15: 14:37 ONCE, 1 [place] injection 8 00 :00 dose, On Medi yesis mg Sat01/15/22 Branch at 0915, [place] dexamethaso No 10mg 10 mg, Uni vers ne sod phos 01-15 Slow IV ity of PF 14:15: 14:37 Push, [place] injection 00 :00 ONCE, 1 Medical 10 mg dose, On Branch Sat01/15/22 at 0915, 1 mL proMETHazin 2021-0 Yes [id number] 25mg Take 1 Univers e 25 mg 9-05 tablet by ity of tablet 00:00: mouth [place] 00 every 6 Medical (six) Branch hours as needed for Nausea and Vomiting (N/V). proMETHazin 2021-0 Yes [id number] 25mg Take 1 Univers e 25 mg 9-05 tablet by ity of tablet 00:00: mouth [place] 00 every 6 Medical (six) Branch hours as needed for Nausea and Vomiting (N/V). proMETHazin 2022-0 Yes [id number] 25mg Take 1 Univers e 25 mg 9-05 tablet by ity of tablet 00:00: mouth [place] 00 every 6 Medical (six) Branch hours as needed for Nausea and Vomiting (N/V). ondansetron 2021- No 4mg 4 mg, Univ ers (ZOFRAN-ODT 830 08-30 Oral, ity of ) 01:45: 00:56 ONCE, 1 [place] disintegrat 00 :00 dose, On Medi yessi ing tablet Mon Branch 4 mg 01/08/22 at 2045, Routine HYDROcodone 2021- No 1{tbl} 1 tablet, Univers -acetaminop 01-09 Oral, ity of hen (NORCO 00:45: 00:37 ONCE, 1 [place] 5) 5-325 mg 00 :00 dose, On Medi yessi tablet 1 Mon Branch tablet 01/08/22 at 1945, [place] diphenhydrA 2021- No 25mg 25 mg, Uni vers MINE 01-08 Slow IV ity of (BENADRYL) 23:45: 23:51 Push, [place] injection 00 :00 ONCE, 1 Medical 25 mg dose, On Branch [facility] 01/08/22 at 1845, STAT dexamethaso 2021- No 10mg 10 mg, Uni vers ne sod phos 01-08 Slow IV ity of PF 23:45: 23:50 Push, [place] injection 00 :00 ONCE, 1 Medical 10 mg dose, On Branch [facility] 01/08/22 at 1845, 1 mL ketorolac 2021- No 30mg 30 mg, Unive rs (TORADOL) 01-08 Slow IV ity of injection 23:45: 23:51 Push, [place] 30 mg 00 :00 ONCE, 1 Medical dose, On Branch [facility] 01/08/22 at 1845, [place] ondansetron Yes [id number] 4mg Take 1 Univers 4 mg 8-29 tablet by ity of disintegrat 00:00: mouth [place] ing tablet 00 every 8 Medica l (eight) Branch hours as needed for Nausea and Vomiting (N/V). acetaminoph 0 Yes [id number] 650mg Take 1 Univers en (TYLENOL 8-29 tablet by ity of ARTHRITIS 00:00: mouth [place] PAIN) 650 00 every 8 Medical mg CR (eight) Branch tablet hours as needed for Pain. ketorolac 0 Yes [id number] 10mg Take 1 U nivers 10 mg 8-29 tablet by ity of tablet 00:00: mouth [place] 00 every 6 Medical (six) Branch hours as needed for Pain (scale 4-6) or Pain (scale 7-10). metaxalone 2022-0 Yes [id number] 800mg Take 1 Univers (SKELAXIN) 8-29 tablet by ity of 800 mg 00:00: mouth in [place] tablet 00 the Medical morning Branch and 1 tablet at noon and 1 tablet in the evening. ondansetron 2022-0 Yes [id number] 4mg Take 1 Univers 4 mg 8-29 tablet by ity of disintegrat 00:00: mouth [place] ing tablet 00 every 8 Medica l (eight) Branch hours as needed for Nausea and Vomiting (N/V). acetaminoph 2022-0 Yes [id number] 650mg Take 1 Univers en (TYLENOL 8-29 tablet by ity of ARTHRITIS 00:00: mouth [place] PAIN) 650 00 every 8 Medical mg CR (eight) Branch tablet hours as needed for Pain. ketorolac 2022-0 Yes [id number] 10mg Take 1 U nivers 10 mg 8-29 tablet by ity of tablet 00:00: mouth [place] 00 every 6 Medical (six) Branch hours as needed for Pain (scale 4-6) or Pain (scale 7-10). metaxalone 2-0 Yes [id number] 800mg Take 1 Univers (SKELAXIN) 8-29 tablet by ity of 800 mg 00:00: mouth in [place] tablet 00 the Medical morning Branch and 1 tablet at noon and 1 tablet in the evening. ondansetron 2-0 Yes [id number] 4mg Take 1 Univers 4 mg 8-29 tablet by ity of disintegrat 00:00: mouth [place] ing tablet 00 every 8 Medica l (eight) Branch hours as needed for Nausea and Vomiting (N/V). acetaminoph 2-0 Yes [id number] 650mg Take 1 Univers en (TYLENOL 8-29 tablet by ity of ARTHRITIS 00:00: mouth [place] PAIN) 650 00 every 8 Medical mg CR (eight) Branch tablet hours as needed for Pain. ketorolac 2022-0 Yes [id number] 10mg Take 1 U nivers 10 mg 8-29 tablet by ity of tablet 00:00: mouth [place] 00 every 6 Medical (six) Branch hours as needed for Pain (scale 4-6) or Pain (scale 7-10). metaxalone 2022-0 Yes [id number] 800mg Take 1 Univers (SKELAXIN) 8-29 tablet by ity of 800 mg 00:00: mouth in [place] tablet 00 the Medical morning Branch and 1 tablet at noon and 1 tablet in the evening. ondansetron 2021-0 Yes [id number] 4mg Take 1 Univers 4 mg 8-29 tablet by ity of disintegrat 00:00: mouth [place] ing tablet 00 every 8 Medica l (eight) Branch hours as needed for Nausea and Vomiting (N/V). acetaminoph 2021-0 Yes [id number] 650mg Take 1 Univers en (TYLENOL 8-29 tablet by ity of ARTHRITIS 00:00: mouth [place] PAIN) 650 00 every 8 Medical mg CR (eight) Branch tablet hours as needed for Pain. ketorolac 2021-0 Yes [id number] 10mg Take 1 U nivers 10 mg 8-29 tablet by ity of tablet 00:00: mouth [place] 00 every 6 Medical (six) Branch hours as needed for Pain (scale 4-6) or Pain (scale 7-10). metaxalone 2021-0 Yes [id number] 800mg Take 1 Univers (SKELAXIN) 8-29 tablet by ity of 800 mg 00:00: mouth in [place] tablet 00 the Medical morning Branch and 1 tablet at noon and 1 tablet in the evening. metroNIDAZO 2022-0 Yes 500mg Take 1 Uni [...] trazodone/d No Take by Un sushant ietary 8- 08 mouth. ity of supp. no.8 15:08: 00:00 [place] (TRAZAMINE 46 :00 Medical ORAL) Branch diphenhydrA Yes 25mg Take 25 mg Univers MINE 25 mg 12-12 by mouth ity o f capsule 13:03: every 6 [place] 04 (six) Medical hours as Branch needed for Allergies. carbamazepi 0 Yes Take by Uni vers ne 8- mouth. ity of (TEGRETOL 13:03: [place] ORAL) Medical Branch citalopram Yes Take by Univ ers hydrobromid 8- mouth. ity of e 13:03: [place] (CITALOPRAM 04 Medical ORAL) Branch ALBUTEROL 0 Yes Univers INHALE 12-12 ity of 13:03: Medical Branch diphenhydrA 0 Yes 25mg Take 25 mg Univers MINE 25 mg 12-12 by mouth ity o f capsule 13:03: every 6 [place] 04 (six) Medical hours as Branch needed for Allergies. carbamazepi 0 Yes Take by Uni vers ne 8- mouth. ity of (TEGRETOL 13:03: [place] ORAL) Medical Branch citalopram Yes Take by Univ ers hydrobromid 8- mouth. ity of e 13:03: [place] (CITALOPRAM 04 Medical ORAL) Branch ALBUTEROL 0 Yes Univers INHALE 12-12 ity of 13:03: [place] 04 Medical Branch diphenhydrA 0 Yes 25mg Take 25 mg Univers MINE 25 mg 12-12 by mouth ity o f capsule 13:03: every 6 [place] 04 (six) Medical hours as Branch needed for Allergies. carbamazepi 0 Yes Take by Uni vers ne 8- mouth. ity of (TEGRETOL 13:03: [place] ORAL) Medical Branch citalopram Yes Take by Univ ers hydrobromid 8- mouth. ity of e 13:03: [place] (CITALOPRAM 04 Medical ORAL) Branch ALBUTEROL 0 Yes Univers INHALE 8 ity of 13:03: [place] [address] Medical Branch diphenhydrA Yes 25mg Take 25 mg Univers MINE 25 mg 8-02 by mouth ity o f capsule 13:03: every 6 [place] 04 (six) Medical hours as Branch needed for Allergies. carbamazepi Yes Take by Uni vers ne 8-02 mouth. ity of (TEGRETOL 13:03: [place] ORAL) Medical Branch citalopram Yes Take by Univ ers hydrobromid 8-02 mouth. ity of e 13:03: [place] (CITALOPRAM 04 Medical ORAL) Branch ALBUTEROL Yes Univers INHALE 8-02 ity of 13:03: Medical Branch diphenhydrA Yes 25mg Take 25 mg Univers MINE 25 mg 8-02 by mouth ity o f capsule 13:03: every 6 [place] 04 (six) Medical hours as Branch needed for Allergies. carbamazepi Yes Take by Uni vers ne 8-02 mouth. ity of (TEGRETOL 13:03: [place] ORAL) Medical Branch citalopram Yes Take by Univ ers hydrobromid 8-02 mouth. ity of e 13:03: [place] (CITALOPRAM 04 Medical ORAL) Branch ALBUTEROL Yes Univers INHALE 8-02 ity of 13:03: [place] [address] Medical Branch traZODone Yes [id number] 50mg Take 1 U nivers 50 mg 8-02 tablet by ity of tablet 00:00: mouth at [place] 00 bedtime. Medical Branch SERTraline 0 Yes [id number] 50mg Take 1 Univers (ZOLOFT) 50 8-02 tablet by ity of mg tablet 00:00: mouth [place] 00 the Medical morning. Branch traZODone 0 Yes [id number] 50mg Take 1 U nivers 50 mg 8-02 tablet by ity of tablet 00:00: mouth at [place] 00 bedtime. Medical Branch SERTraline 0 Yes [id number] 50mg Take 1 Univers (ZOLOFT) 50 8-02 tablet by ity of mg tablet 00:00: mouth [place] 00 the Medical morning. Branch traZODone 0 Yes [id number] 50mg Take 1 U nivers 50 mg 8-02 tablet by ity of tablet 00:00: mouth at [place] 00 bedtime. Medical Branch SERTraline 2021-0 Yes [id number] 50mg Take 1 Univers (ZOLOFT) 50 8-02 tablet by ity of mg tablet 00:00: mouth in [facility] 00 the Medical morning. Branch traZODone 2021-0 Yes [id number] 50mg Take 1 U nivers 50 mg 8-02 tablet by ity of tablet 00:00: mouth at [place] 00 bedtime. Medical Branch SERTraline 2021-0 Yes [id number] 50mg Take 1 Univers (ZOLOFT) 50 8-02 tablet by ity of mg tablet 00:00: mouth in [facility] 00 the Medical morning. Branch traZODone 2021-0 Yes [id number] 50mg Take 1 U nivers 50 mg 8-02 tablet by ity of tablet 00:00: mouth at [place] [address] bedtime. Medical Branch SERTraline 0 Yes [id number] 50mg Take 1 Univers (ZOLOFT) 50 8-02 tablet by ity of mg tablet 00:00: mouth in [facility] 00 the Medical morning. Branch sulfamethox 2021- No [id number] 1{tbl} Take 1 Univers azole-trime 8-02 08-06 tablet by it y of thoprim 00:00: 04:59 mouth in [place] (BACTRIM 00 :00 the Medical DS) 800-160 morning Branc h mg per and 1 tablet tablet in the evening. Do all this for 3 days. ibuprofen 0 Yes [id number] 600mg Take 1 Univers 600 mg 7-15 tablet by ity of tablet 00:00: mouth [place] [address] every 6 Medical (six) Branch hours as needed for Pain (scale 4-6). ibuprofen 2021-0 Yes [id number] 600mg Take 1 Univers 600 mg 7-15 tablet by ity of tablet 00:00: mouth [place] [address] every 6 Medical (six) Branch hours as needed for Pain (scale 4-6). ibuprofen 2021-0 Yes [id number] 600mg Take 1 Univers 600 mg 7-15 tablet by ity of tablet 00:00: mouth [place] [address] every 6 Medical (six) Branch hours as needed for Pain (scale 4-6). ibuprofen 2021-0 Yes [id number] 600mg Take 1 Univers 600 mg 7-15 tablet by ity of tablet 00:00: mouth [place] 00 every 6 Medical (six) Branch hours as needed for Pain (scale 4-6). ibuprofen 2021-0 Yes [id number] 600mg Take 1 Univers 600 mg 7-15 tablet by ity of tablet 00:00: mouth [place] 00 every 6 Medical (six) Branch hours as needed for Pain (scale 4-6). acetaminoph 2021-0 202- No [id number] 1{tbl} Take 1 U nivers en-codeine 7-15 12-12 tablet by ity of 300-30 mg 00:00: 00:00 mouth [place] tablet 00 :00 every 4 Medical (four) Branch hours as needed for Pain (scale 4-6). Indication s: acute pain bromphenira 2021-0 Yes [id number] 5mL Take 5 mL Univers mine-pseudo 7-09 by mouth 4 it y of ephedrine-D 00:00: (four) [place] M (BROMFED 00 times Medical DM) 2-30-10 daily as Bran ch mg/5 mL needed for syrup Congestion /Allergies or Cough. naproxen 2021-0 Yes [id number] 500mg Take 1 U nivers 500 mg 7-09 tablet by ity of tablet 00:00: mouth [place] 00 every 8 Medical (eight) Branch hours as needed for Pain (scale 4-6). cyclobenzap 2021-0 Yes [id number] 10mg Take 1 Univers rine 10 mg 7-09 tablet by ity of tablet 00:00: mouth at [place] 00 bedtime as Medical needed for Branch Muscle Spasms. bromphenira 2021-0 Yes [id number] 5mL Take 5 mL Univers mine-pseudo 7-09 by mouth 4 it y of ephedrine-D 00:00: (four) [place] M (BROMFED 00 times Medical DM) 2-30-10 daily as Bran ch mg/5 mL needed for syrup Congestion /Allergies or Cough. naproxen 2021-0 Yes [id number] 500mg Take 1 U nivers 500 mg 7-09 tablet by ity of tablet 00:00: mouth [place] 00 every 8 Medical (eight) Branch hours as needed for Pain (scale 4-6). cyclobenzap 2021-0 Yes [id number] 10mg Take 1 Univers rine 10 mg 7-09 tablet by ity of tablet 00:00: mouth at [place] 00 bedtime as Medical needed for Branch Muscle Spasms. bromphenira 2021-0 Yes [id number] 5mL Take 5 mL Univers mine-pseudo 7-09 by mouth 4 it y of ephedrine-D 00:00: (four) [place] M (BROMFED 00 times Medical DM) 2-30-10 daily as Bran ch mg/5 mL needed for syrup Congestion /Allergies or Cough. naproxen 2021-0 Yes [id number] 500mg Take 1 U nivers 500 mg 7-09 tablet by ity of tablet 00:00: mouth [place] 00 every 8 Medical (eight) Branch hours as needed for Pain (scale 4-6). cyclobenzap 2021-0 Yes [id number] 10mg Take 1 Univers rine 10 mg 7-09 tablet by ity of tablet 00:00: mouth at [place] 00 bedtime as Medical needed for Branch Muscle Spasms. bromphenira 2021-0 Yes [id number] 5mL Take 5 mL Univers mine-pseudo 7-09 by mouth 4 it y of ephedrine-D 00:00: (four) [place] M (BROMFED 00 times Medical DM) 2-30-10 daily as Bran ch mg/5 mL needed for syrup Congestion /Allergies or Cough. naproxen 2021-0 Yes [id number] 500mg Take 1 U nivers 500 mg 7-09 tablet by ity of tablet 00:00: mouth [place] 00 every 8 Medical (eight) Branch hours as needed for Pain (scale 4-6). cyclobenzap 2021-0 Yes [id number] 10mg Take 1 Univers rine 10 mg 7-09 tablet by ity of tablet 00:00: mouth at [place] 00 bedtime as Medical needed for Branch Muscle Spasms. bromphenira 2021-0 Yes [id number] 5mL Take 5 mL Univers mine-pseudo 7-09 by mouth 4 it y of ephedrine-D 00:00: (four) [place] M (BROMFED 00 times Medical DM) 2-30-10 daily as Bran ch mg/5 mL needed for syrup Congestion /Allergies or Cough. naproxen 2021-0 Yes [id number] 500mg Take 1 U nivers 500 mg 7-09 tablet by ity of tablet 00:00: mouth [place] 00 every 8 Medical (eight) Branch hours as needed for Pain (scale 4-6). cyclobenzap 0 Yes [id number] 10mg Take 1 Univers rine 10 mg 7-09 tablet by ity of tablet 00:00: mouth at [place] 00 bedtime as Medical needed for Branch Muscle Spasms. ibuprofen 0 Yes [id number] 605mg Take 30.25 Univers 100 mg/5 mL 6-15 mL by ity of oral 00:00: mouth [place] suspension 00 every 6 Medica l (six) Branch hours as needed for Pain (scale 4-6) or Temp > 38.5 C. ibuprofen 0 Yes [id number] 605mg Take 30.25 Univers 100 mg/5 mL 6-15 mL by ity of oral 00:00: mouth [place] suspension 00 every 6 Medica l (six) Branch hours as needed for Pain (scale 4-6) or Temp > 38.5 C. ibuprofen 0 Yes [id number] 605mg Take 30.25 Univers 100 mg/5 mL 6-15 mL by ity of oral 00:00: mouth [place] suspension 00 every 6 Medica l (six) Branch hours as needed for Pain (scale 4-6) or Temp > 38.5 C. ibuprofen 0 Yes [id number] 605mg Take 30.25 Univers 100 mg/5 mL 6-15 mL by ity of oral 00:00: mouth [place] suspension 00 every 6 Medica l (six) Branch hours as needed for Pain (scale 4-6) or Temp > 38.5 C. ibuprofen 0 Yes [id number] 605mg Take 30.25 Univers 100 mg/5 mL 6-15 mL by ity of oral 00:00: mouth [place] suspension 00 every 6 Medica l (six) Branch hours as needed for Pain (scale 4-6) or Temp > 38.5 C. acetaminoph 2021-0 2021- No [id number] 608mg Take 19 mL Univers en 160 mg/5 6-15 08-02 by mouth ity of mL liquid 00:00: 00:00 every 6 [place] 00 :00 (six) Medical hours as Branch needed for Fever. DULoxetine 0 Yes Univers 60 mg 5-27 ity of capsule 00:00: Medical Branch DULoxetine 0 Yes Univers 60 mg 5-27 ity of capsule 00:00: Medical Branch DULoxetine 0 Yes Univers 60 mg 5-27 ity of capsule 00:00: Medical Branch DULoxetine 0 Yes Univers 60 mg 5-27 ity of capsule 00:00: Medical Branch DULoxetine 2021-0 Yes Univers 60 mg 5-27 ity of capsule 00:00: Medical Branch traZODone 0 2021- No Univers 50 mg 5-27 08- ity of tablet 00:00: 00:00 [place] 00 :00 Medical Branch mometasone 0 Yes [id number] 1{spray Use 1 Univers 50 5-19 } [place] in ity of mcg/actuati 00:00: each [place] on nasal 00 nostril 2 Medica l spray (two) Branch times daily. mometasone Yes [id number] 1{spray Use 1 Univers 50 5-19 } [place] in ity of mcg/actuati 00:00: each [place] on nasal 00 nostril 2 Medica l spray (two) Branch times daily. mometasone Yes [id number] 1{spray Use 1 Univers 50 5-19 } [place] in ity of mcg/actuati 00:00: each [place] on nasal 00 nostril 2 Medica l spray (two) Branch times daily. mometasone 2021-0 Yes [id number] 1{spray Use 1 Univers 50 5-19 } [place] in ity of mcg/actuati 00:00: each [place] on nasal 00 nostril 2 Medica l spray (two) Branch times daily. mometasone 2021- Yes [id number] 1{spray Use 1 Univers 50 5-19 } [place] in ity of mcg/actuati 00:00: each [place] on nasal 00 nostril 2 Medica l spray (two) Branch times daily. cetirizine Yes [id number] 10mg Take 1 U nivers (ZYRTEC) 10 5-16 tablet by ity of mg tablet 00:00: mouth [place] 00 daily. Medical Branch cetirizine 0 Yes [id number] 10mg Take 1 U nivers (ZYRTEC) 10 5-16 tablet by ity of mg tablet 00:00: mouth 00 daily. Medical Branch cetirizine 2-0 Yes [id number] 10mg Take 1 U nivers (ZYRTEC) 10 5-16 tablet by ity of mg tablet 00:00: mouth 00 daily. Medical Branch cetirizine 2021-0 Yes [id number] 10mg Take 1 U nivers (ZYRTEC) 10 5-16 tablet by ity of mg tablet 00:00: mouth 00 daily. Medical Branch cetirizine 2021-0 Yes [id number] 10mg Take 1 U nivers (ZYRTEC) 10 5-16 tablet by ity of mg tablet 00:00: mouth 00 daily. Medical Branch DULoxetine 2-0 Yes Univers 30 mg 5-09 ity of capsule 00:00: [place] 00 Medical Branch gabapentin 2022-0 Yes Univers 300 mg 5-09 ity of capsule 00:00: [place] 00 Medical Branch ondansetron 2022-0 Yes Univer s 4 mg tablet 5-09 ity of 00:00: [place] 00 Medical Branch DULoxetine 2022-0 Yes Univers 30 mg 5-09 ity of capsule 00:00: [place] 00 Medical Branch gabapentin 2022-0 Yes Univers 300 mg 5-09 ity of capsule 00:00: [place] 00 Medical Branch ondansetron 2022-0 Yes Univer s 4 mg tablet 5-09 ity of 00:00: [place] 00 Medical Branch DULoxetine 2022-0 Yes Univers 30 mg 5-09 ity of capsule 00:00: [place] 00 Medical Branch gabapentin 2022-0 Yes Univers 300 mg 5-09 ity of capsule 00:00: [place] 00 Medical Branch ondansetron 2022-0 Yes Univer s 4 mg tablet 5-09 ity of 00:00: [place] 00 Medical Branch DULoxetine 2022-0 Yes Univers 30 mg 5-09 ity of capsule 00:00: [place] 00 Medical Branch gabapentin 2022-0 Yes Univers 300 mg 5-09 ity of capsule 00:00: [place] 00 Medical Branch ondansetron 2022-0 Yes Univer s 4 mg tablet 5-09 ity of 00:00: [place] 00 Medical Branch DULoxetine 2022-0 Yes Univers 30 mg 5-09 ity of capsule 00:00: [place] 00 Medical Branch gabapentin 2022-0 Yes Univers 300 mg 09-18 ity of capsule 00:00: [place] [facility] ondansetron 2021-0 Yes Univer s 4 mg tablet 09-18 ity of 00:00: [place] [facility] amLODIPine 2021-0 Yes Univers 5 mg tablet 09-01 ity of 00:00: [place] [facility] Branch amLODIPine 2021-0 Yes 5mg Take 5 mg Un sushatn 5 mg tablet 22 by mouth. ity of 00:00: [place] [facility] Branch amLODIPine 2021-0 Yes Univers 5 mg tablet - ity of 00:00: [place] [facility] Branch amLODIPine 2021-0 Yes 5mg Take 5 mg Un sushant 5 mg tablet 22 by mouth. ity of 00:00: [place] [facility] Branch amLODIPine 2021-0 Yes Univers 5 mg tablet 09-01 ity of 00:00: [place] [facility] amLODIPine 2021-0 Yes 5mg Take 5 mg Un sushant 5 mg tablet 09-01 by mouth. ity of 00:00: [place] [facility] Branch amLODIPine 2021-0 Yes Univers 5 mg tablet 09-01 ity of 00:00: [place] [facility] Branch amLODIPine 2021-0 Yes 5mg Take 5 mg Un sushant 5 mg tablet 09-01 by mouth. ity of 00:00: [place] [facility] Branch amLODIPine 2021-0 Yes Univers 5 mg tablet 09-01 ity of 00:00: [place] [facility] amLODIPine 2021-0 Yes 5mg Take 5 mg Un sushant 5 mg tablet -22 by mouth. ity of 00:00: [place] [facility] Branch buPROPion 2021-0 Yes Univers XL 150 mg 4-20 ity of 24 hr 00:00: [place] tablet Medical Branch buPROPion 2021-0 Yes Univers XL 150 mg 4-20 ity of 24 hr 00:00: [place] tablet Medical Branch buPROPion 2021-0 Yes Univers XL 150 mg 4-20 ity of 24 hr 00:00: [place] tablet Medical Branch buPROPion 2021-0 Yes Univers XL 150 mg 4-20 ity of 24 hr 00:00: [place] tablet Medical Branch buPROPion 2021-0 Yes Univers XL 150 mg 4-20 ity of 24 hr 00:00: [place] tablet Medical Branch buPROPion 2022- No 150mg Take [...] tablet by ity of tablet 00:00: mouth ([facility]) Medical times Branch daily with meals. losartan [...] by ity of tablet 00:00: mouth 2 ([facility]) Medical times Branch daily with meals. 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 Take 1 Univers oL 4-08 [...] Immunizations Ordered Filled Immunization Date Status Comments [facility] e Immunization Name Name Influenza Virus 2021-06-11 Completed Universit y of Vaccine 00:00:00 [facility] Influenza Virus 2021-06-11 Completed Universit y of Vaccine 00:00:00 [facility] Influenza Virus 2021-06-11 Completed Universit y of Vaccine 00:00:00 [facility] Influenza Virus 2021-06-11 Completed Universit y of Vaccine 00:00: [facility] Influenza Virus 2021-06-11 Completed Universit y of Vaccine 00:00:00 [facility] Influenza Virus 2020-05-19 Completed Universit y of Vaccine 00:00:00 [facility] Influenza Virus 2020-05-19 Completed Universit y of Vaccine 00:00:00 [facility] Influenza Virus 2020-05-19 Completed Universit y of Vaccine 00:00:00 [facility] Influenza Virus 2020-05-19 Completed Universit y of Vaccine 00:00:00 [facility] Influenza Virus 2020-05-19 Completed Universit y of Vaccine 00:00:00 [facility] Influenza Virus 2020-05-19 Completed Universit y of Vaccine 00:00:00 [facility] Influenza Virus 2020-05-16 Completed Universit y of [...] (ADACEL) 2019-05-21 Completed University of VACCINE 00:00:00 [facility] TDAP (ADACEL) 2019-05-21 Completed University of VACCINE 00:00:00 [facility] TDAP (ADACEL) 2019-05-21 Completed University of VACCINE 00:00:00 [facility] TDAP (ADACEL) 2019-05-21 Completed University of VACCINE 00:00:00 [facility] TDAP (ADACEL) 2019-05-21 Completed University of VACCINE 00:00:00 [facility] TDAP (ADACEL) 2019-05-21 Completed University of VACCINE 00:00:00 [facility] Influenza Virus 2019-02-06 Completed Universit y of Vaccine Quad .5 mL 00:00:00 [facility] 6+ [facility] Influenza Virus 2019-02-06 Completed Universit y [...] 14:50:00 144 mm[Hg] Univer sity of pressure [facility] Diastolic blood 2022-01-18 14:50:00 92 mm[Hg] Unive rsity of pressure [facility] Heart rate 2022-01-18 14:50:00 94 /min [facility] Respiratory rate 2022-01-18 14:50:00 20 /min Univ ersity of [facility] Oxygen saturation in 2022-01-18 14:50:00 99 /min University of Arterial blood by Michael Bieker Pulse oximetry Branch Body weight 2022-01-18 10:18:00 54.432 kg [facility] BMI 2022-01-18 10:18:00 22.67 kg/m2 [facility] Body temperature 2022-01-18 10:15:00 36.72 Irene [facility] ersity of [facility] Systolic blood 2022-01-15 15:48:26 125 mm[Hg] Univer sity of pressure [facility] Diastolic blood 2022-01-15 15:48:26 85 mm[Hg] Unive rsity of pressure [facility] Heart rate 2022-01-15 15:48:26 95 /min Universi ty [facility] Respiratory rate 2022-01-15 15:48:26 18 /min Univ ersity of [facility] Oxygen saturation in 2022-01-15 15:48:26 98 /min University of Arterial blood by [employer] yessi Pulse oximetry Branch Body temperature 2022-01-15 13:32:00 37.11 Irene Univ ersity of [facility] Body height 2022-01-15 13:32:00 154.9 cm Universi ty of [place] [facility] Body weight 2022-01-15 13:32:00 54.432 kg Universi ty of [place] [facility] BMI 2022-01-15 13:32:00 22.67 kg/m2 Universi ty of [place] [facility] Systolic blood 2022-01-09 00:37:11 127 mm[Hg] Univer sity of pressure [place] [facility] Diastolic blood 2022-01-09 00:37:11 90 mm[Hg] Unive rsity of pressure [place] [facility] Heart rate 2022-01-09 00:37:11 94 /min Universi ty of [place] [facility] [place] Body temperature 2022-01-09 00:37:11 37.11 Irene Univ ersity of [place] [facility] Respiratory rate 2022-01-09 00:37:11 16 /min Univ ersity of [facility] Oxygen saturation in 2022-01-09 00:37:11 97 /min University Arterial blood by [facility] Pulse oximetry Branch Body height 2022-01-08 23:03:00 154.9 cm Universi ty of [place] [facility] Body weight 2022-01-08 23:03:00 58.06 kg Universi ty of [place] [facility] BMI 2022-01-08 23:03:00 24.19 kg/m2 Universi ty of [place] [facility] Systolic blood 2021-12-12 18:00:00 126 mm[Hg] Univer sity of pressure [place] [facility] Diastolic blood 2021-12-12 18:00:00 87 mm[Hg] Unive rsity of pressure [place] [facility] Heart rate 2021-12-12 18:00:00 86 /min Universi ty of [place] [facility] Body temperature 2021-12-12 18:00:00 36.89 Irene Univ ersity of [place] [facility] Respiratory rate 2021-12-12 18:00:00 18 /min Univ ersity of [place] [facility] Body height 2021-12-12 18:00:00 154.9 cm Universi ty of [place] [facility] Body weight 2021-12-12 18:00:00 57.153 kg Universi ty of [place] [facility] BMI 2021-12-12 18:00:00 23.81 kg/m2 Universi ty of [place] [facility] Procedures Procedure Date / Time Performing Clinician Source Performed US GALL BLADDER 2022-01-18 12:31:09 Bernardo Levy [facility] US PELVIS COMPLETE WITH 2022-01-18 12:21:13 Melvin Zhao [facility] TRANSVAGINAL [facility] CT ABDOMEN PELVIS W 2022-01-18 11:20:50 Melvin Zhao [facility] CONTRAST [facility] POCT TEST 2022-01-18 10:57:00 Jayy Kennedy [facility] COVID-19 (ID NOW RAPID 2022-01-18 10:57:00 Jayy Kennedy [facility] TESTING) [facility] URINALYSIS 2022-01-18 10:47:00 Jayy Kennedy [facility] LIPASE 2022-01-18 10:29:00 Jayy Kennedy [facility] TEST, SERUM 2022-01-18 10:29:00 Jayy Kennedy [facility] HEPATIC FUNCTION PANEL 2022-01-18 10:29:00 Jayy Kennedy [facility] ([id number]) (ALB,T.PRO,BILI [facility] T,BU/BC,ALT,AST,ALK PHOS) BASIC METABOLIC PANEL 2022-01-18 10:29:00 Jayy Kennedy [facility] (NA, K, CL, CO2, Medical Branch GLUCOSE, BUN, CREATININE, CA) CBC WITH DIFF 2022-01-18 10:29:00 Jayy Kennedy [facility] CONSENT/REFUSAL FOR 2022-01-18 10:13:31 Doctor Unassigned, No Un [facility] DIAGNOSIS AND TREATMENT Name [facility] CT HEAD WO CONTRAST 2022-01-15 15:22:29 Kenny [facility] TEST, SERUM 2022-01-15 14:36:00 Kenny [facility] BASIC METABOLIC PANEL 2022-01-15 14:36:00 Kenny [facility] (NA, K, CL, CO2, [facility] GLUCOSE, BUN, CREATININE, CA) CBC WITH DIFF 2022-01-15 14:36:00 Kenny [facility] CONSENT/REFUSAL FOR 2022-01-15 13:28:12 [facility]igned, No [facility] [place] [facility] Name Medical Branch XR CERVICAL SPINE 4 VW 2022-01-09 00:29:16 Dom Humberto [facility] XR LUMBAR SPINE 4 VW 2022-01-09 00:29:16 Humberto Fernandes [facility] XR SPINE THORACIC 3 VW 2022-01-09 00:29:16 Dom [facility] URINALYSIS 2022-01-08 23:50:00 Humberto Fernandes [facility] CONSENT/REFUSAL FOR 2022-01-08 22:51:08 [facility]assigned, [facility] Name [facility] GALV ONLY - VAGINAL 2021-12-12 18:37:00 Prasanna Vargas [facility] PATHOGENS BY [facility] Medical [facility] ACID TESTING URINE CULTURE 2021-12-12 18:32:00 Vargas [facility] o f [facility] POCT TEST 2021-12-12 18:31:00 [facility] Prasanna [facility] POCT URINALYSIS W/O 2021-12-12 18:31:00 [facility] SPECIFIC GRAVITY [facility] Plan of Care Planned Activity Planned Date Details Comments Source Future Scheduled 2029-05-21 DTaP,Tdap,and Td [facility] Test 00:00:00 Vaccines (2 - Td) Medical Br anch [code = DTaP,Tdap,and Td Vaccines (2 - Td)] Future Scheduled 2021-09-06 Depression screening Uni [facility] Test 00:00:00 (procedure) [code = Medical Branch [id number]] Future Scheduled 2016-02-19 Screening for [facility] Test 00:00:00 malignant neoplasm Medical B ranch of cervix (procedure) [code = 880429591] Future Scheduled 2013 Hepatitis C [facility] Test 00:00:00 screening Medical Branch (procedure) [code = 537325231] Future Scheduled 2011 SARS-CoV-2 [facility] Test 00:00:00 (COVID-19) Vaccine Medical B ranch (1) [code = SARS-CoV-2 (COVID-19) Vaccine (1)] Future Scheduled 2006 HPV VACCINES (1 - Univer [facility] Test 00:00:00 2-dose series) [code Medical Branch = HPV VACCINES (1 - 2-dose series)] Encounters Start End Encounter Admission Attending Care Care Encounter Source Date/Time Date/Time Type Type Clinicians Facility Department ID 2022-12-12 2022-12-12 Outpatient R PRASANNA VARGAS [facility] [id number] Univers 09:30:00 09:30:00 [id number] ity [facility] 2022-01-26 2022-01-26 Case Alicia Vargasen [facility] [id number] Univers 00:00:00 00:00:00 Management Jm LAWSON [id number] ity [place]2.[place] [id number] Co dic[address] 2022-01-22 2022-01-22 Outpatient R ERAN [facility] [id number] Univers 11:00:00 11:00:00 VIJAY [id number] [facility] 2022-01-22 2022-01-22 Outpatient R EARN [facility] [id number] Univers 11:00:00 11:00:00 VIJAY [facility] 2022-01-18 2022-01-18 Emergency X GARDEINA [facility] ERT [id number] Univers 05:17:00 10:25:00 BERNARDO [facility] 2022-01-18 2022-01-18 Emergency Jayy Kennedy W TRAUMA [id number] Univers 05:17:00 10:25:00 Bernardo Levy [place] [id number] [place] [id number] [address] 2022-01-15 2022-01-15 Emergency X KENNY [facility] ERT [id number] Univers 08:34:00 10:49:00 MAURA [facility] 2022-01-15 2022-01-15 Emergency Larry Perez [facility] [id number] Univers 08:34:00 10:49:00 Kenny [place] [id number] ity of [place] 4.2.7.2.686 [facility] [phone] [address] 2022-01-08 2022-01-08 Emergency X DOM, [facility] ERT [id number] Univers 18:04:00 20:09:00 HUMBERTO ity [facility] 2022-01-08 2022-01-08 [facility] [id number] Univers 18:04:00 20:09:00 Humbertoasim LAWSON [id number] i ty of [place] 4.2.7.2.686 [facility] [id number] [address] 2021-12-12 2021-12-12 Office Prasanna Vargas [facility] [id number] Univers 13:30:00 13:40:21 Visit Suzanna Carnes [id number] ity of [place] 4.2.7.2.686 [facility] PROFESSIO [id number] Co dical NAL [address] BU[address] 2021-12-12 2021-12-12 Outpatient R DEYVI [facility] [id number] Univers 13:30:00 13:40:21 SUZANNA lechuga [facility] 2020-11-10 2020-11-10 Urgent Alissa Collins [facility] 1.2.840.114 [id number] 18:42:46 19:53:43 [facility] [id number] [place] 4.2.7.2.686 Professio [id number] nal [address] 2020-10-31 2020-10-31 Emergency Kaycee Méndez [facility] 1.2.840.114 [id number] 18:52:00 22:15:00 Sharlene [place] [id number] [place] 4.2.7.2.686 [place] [id number] [facility] 2020-10-31 2020-10-31 Orders Doctor ORTEGA 1.2.840.114 [id number] 00:00:00 00:00:00 Only Unassigned, YAZMIN [id number] [place] [facility] 4.2.7.2.686 [id number] 2020-10-20 2020-10-20 Emergency Kaycee Méndez [facility] 1.2.840.114 [id number] 14:02:00 17:13:00 Sharlene Lawson [id number] [place] 4.2.7.2.686 [place] [id number] 2020-10-14 2020-10-14 Hospital Prasanna Vargas [facility] 1.2.840.114 [id number] 10:00:00 23:59:00 Encounter Jm [place] [id number] [place] 4.2.7.2.686 [place] [id number] 2020-10-09 2020-10-09 Emergency Krystle [facility] [id number] 12:00:00 15:57:00 Anna [place] [id number] [place] 4.2.7.2.686 [place] [id number] 2020-10-06 2020-10-06 Office Prasanna Vargas [facility] [id number] 08:53:00 09:46:44 Visit Jm [place] [id number] [place] 4.2.7.2.686 Professio [id number] [address] 2020-03-04 2020-03-04 RefLopez Centeno [facility] 1.2.840.114 [id number] 00:00:00 00:00:00 MULTISPEC [id number] IALTY 4.2.7.2.686 [place] [id number] AND ERIBERTO [facility] Results Test Description Test Time Test Comments Results Result Comments Source LIPASE 2022-01-18 12:45:21 Test Item Value Reference Range Interpretation Comme nts LIPASE (test code = 7080963422) 41 U/L 0-220 Lab Interpretation (test code = 66466-5) Normal [facility] [id number] 10:57:00 Test Item Value Reference Range Interpretation Comments POCT PREG (test code = 1605) Negative On board controls acceptable with Present C Line (test code = 3574) POCT PREG LOT # (test code = 3571) [id number] POCT PREG TEST DATE (test 03/12/2023 code = 3576) Lab Interpretation (test code = Normal 58232-8) [facility] METABOLIC PANEL (NA, K, CL, CO2, GLUCOSE, BUN, CREATININE, CA)2022-01-18 10:56:51 Test Item Value Reference Range Interpretation Comments NA (test code = 137 mmol/L 135-145 9445261048) K (test code = 4.6 mmol/L 3.5-5 Slight 1550886592) hemolysis CL (test code = 108 mmol/L 98-108 5950633223) CO2 TOTAL (test code 22 mmol/L 23-31 L = 5373280400) AGAP (test code = 2-16 9215198496) BUN (test code = 11 mg/dL 7-23 Slight 4716765596) hemolysis GLUCOSE (test code = 83 mg/dL 70-110 1913501211) CREATININE (test code 0.68 mg/dL 0.5-1.04 = 2074827919) CALCIUM (test code = 8.8 mg/dL 8.6-10.6 8492356347) eGFR (test code = mL/min/1.73m2 6281058277) WESLEY (test code = WESLEY) Association of [...] tests). Lab Interpretation Abnormal (test code = 27933-2) [facility] (89090) (ALB,T.PRO,BILI T,BU/BC,ALT,AST,ALK PHOS)2022-01-18 10:56:51 Test Item Value Reference Range Interpretation Comments TOTAL BILI (test code = 4116965091) 0.6 mg/dL 0.1-1.1 BILI UNCON (test code = 0741073006) 0.1 mg/dL 0.1-1.1 BILI CONJ (test code = 2887127349) 0.0 mg/dL 0-0.3 T PROTEIN (test code = 5243105741) 8.6 g/dL 6.3-8.2 H ALBUMIN (test code = 9550483021) 5.1 g/dL 3.5-5 H ALK PHOS (test code = 6265447449) 79 U/L 34-122 ALTv (test code = 1742-6) 117 U/L 5-35 H AST(SGOT) (test code = 6463564728) 163 U/L 13-40 H Lab Interpretation (test code = Abnormal 33202-3) [facility], [id number] 10:54:25 Test Item Value Reference Range Interpretation Comments PREG SERUM (test code Negative = 7184529632) WESLEY (test code = WESLEY) Less than 10 IU/L. ?If low titer or ectopic is suspected, resubmit specimen in 48-72 hours. [facility] WITH [id number] 10:40:49 Test Item Value Reference Range Interpretation Comments WBC (test code = See_Comment [Automated 6690-2) message] The sy stem which generated this result transmitted reference range : 4.30 - 11.10 10*3/?L. The reference range was not used to interpret this result as normal/abnormal . RBC (test code = See_Comment [Automated 789-8) message] The sy stem which generated this [...] RDW-SD (test code = 45.3 fL 39-49.9 51201-7) RDW-CV (test code = 14.5 % 12-15.5 788-0) PLT (test code = See_Comment [Automated 777-3) message] The sy stem which generated this result transmitted reference range : 166 - 358 10*3/ ?L. The reference r david was not used to interpret this result as normal/abnormal . MPV (test code = 9.5 fL 9.5-12.9 95742-6) NRBC/100 WBC (test See_Comment [Automat ed code = 3521759173) message] The system which generated this result transmitted reference range : 0.0 - 10.0 /100 WBCs. The refer ence range was not u sed to interpret th is result as normal/abnormal . NRBC x10^3 (test code See_Comment [Auto mated = 4907023957) message] The s ystem which generated this result transmitted reference range : 10*3/?L. The reference range was not used to interpret this result as normal/abnormal . GRAN MAT (NEUT) % 47.6 % (test code = 770-8) IMM GRAN % (test code 0.60 % = 6416426662) LYMPH % (test code = 39.9 % 736-9) MONO % (test code = 5.9 % 5905-5) EOS % (test code = 5.3 % 713-8) BASO % (test code = 0.7 % 706-2) GRAN MAT x10^3(ANC) 4.45 10*3/uL 1.88-7.09 (test code = 9046255045) IMM GRAN x10^3 (test 0.06 10*3/uL 0-0.06 code = 7886776158) LYMPH x10^3 (test code 3.74 10*3/uL 1.32-3.29 H = 731-0) MONO x10^3 (test code 0.55 10*3/uL 0.33-0.92 = 742-7) EOS x10^3 (test code = 0.50 10*3/uL 0.03-0.39 H 711-2) BASO x10^3 (test code 0.07 10*3/uL 0.01-0.07 = 704-7) Lab Interpretation Abnormal (test code = 68610-6) [facility]OW[facility] [id number] 18:31:00 Test Item Value Reference Range Interpretation Comments POCT PREG (test code = 1605) Negative On board controls acceptable with C Yes Line (test code = 3574) POCT PREG LOT # (test code = 3575) POCT PREG TEST DATE (test code = 3576) [facility] URINALYSIS W/O SPECIFIC [id number] 18:31:00 Test Item Value Reference Range Interpretation [...] code = 3257) Trace Negative - Negative [facility]"
[2022-01-26 09:37] LABS: Absolute Lymphocytes (CBC) 2.2 K/uL (0.7-4.9); Hematocrit 40.5 % (36.0-45.0); Lymphocytes % 22.4 % (15.3-44.8); MCV 85.5 fL (80-100); RBC Red Blood Cell Count 4.73 M/uL (3.86-4.86)
[2022-01-26 09:55] LABS: BUN Blood Urea Nitrogen 11 mg/dL (7-18); Bicarbonate 24 mmol/L (21-32); Glomerular Filtration Rate 104 ml/min (=/>90); Glucose Level 117 mg/dL (74-106); Potassium 3.6 mmol/L (3.5-5.1); Sodium Level 138 mmol/L (136-145)
[2022-01-26 09:56] LABS: Troponin High Sensitivity < 3.0 pg/mL (<58.9)
--- NOTE | 2022-01-26 10:01 | RAD REPORT ---
EXAM DESCRIPTION: RAD - Chest Single View - 01/26/2022 9:54 am CLINICAL HISTORY: CHEST PAIN COMPARISON: 01/06/2022 TECHNIQUE: AP portable chest image was obtained 01/26/2022 9:54 am . FINDINGS: Lungs are clear. Heart and vasculature are normal. No measurable pleural effusion and no p neumothorax. No acute bony abnormality seen. No acute aortic findings suspected. IMPRESSION: No acute cardiopulmonary process. No significant change from comparison study.
[2022-01-26] MEDS ORDERED: DIPHENHYDRAMINE 50 MG/ML VIAL ONE (10:15)
[2022-01-26] MEDS ORDERED: KETOROLAC 30 MG/ML INJ ONE (10:15)
[2022-01-26] MEDS ORDERED: ONDANSETRON 4 MG/2 ML VIAL ONE (10:15)
[2022-01-26] MEDS ORDERED: NA CHLORIDE 0.9% 1,000 ML ONE (10:16)
[2022-01-26] MEDS ORDERED: MORPHINE 2 MG/ML SYR ONE ×2 (11:19→12:45)
[2022-01-26] MEDS ORDERED: PROMETHAZINE INJ 25 MG/ML AMP ONE (11:19)
--- NOTE | 2022-01-26 12:29 | EKG ---
Test Date: 2022-01-26 Test Time: 08:34:57 Accordion Maker: KATHYA MEASUREMENT RESULTS: Intervals: Rate: 101 NH: 112 QRSD: 76 QT: 334 QTc: 433 [place]: P: 69 NH: 112 QRS: 69 T: 48 INTERPRETIVE STATEMENTS: Sinus tachycardia Possible Anterior infarct, age undetermined Abnormal ECG Compared to ECG 01/06/2022 16:49:50 Myocardial infarct finding now present Sinus rhythm no longer present Electronically Signed On 01-26-22 12:27:47 CDT by Murphy Vines
--- NOTE | 2022-01-26 12:35 | ER ---
Nurse's Notes [facility] Name: Natanael Dyson Age: 26 yrs Sex: Female : 1995 Arrival Date: 01/26/2022 Time: 08:30 Bed 6 Private MD: Diagnosis: Headache Presentation: 01/26 08:35 Chief complaint: Patient states: chest pain that started 5 hours ago, squeezing pain in kr3 chest that takes breath away, also has migraine. Father a week ago. Coronavirus screen: Vaccine status: Patient reports being unvaccinated. Client denies travel out of the [place] in the last 14 days. Ebola Screen: Patient denies travel to an Ebola-affected area in the 21 days before illness onset. Initial Sepsis Screen: Does the patient meet any 2 criteria? No. Patient's initial sepsis screen is negative. Does the patient have a suspected source of infection? No. Patient's initial sepsis screen is negative. Risk Assessment: Do you want to hurt yourself or someone else? Patient reports no desire to harm self or others. Onset of symptoms was January 26, 2022. 08:35 Method Of Arrival: Ambulatory kr3 08:35 Acuity: THIERNO 3 kr3 Triage Assessment: 08:39 General: Appears distressed, uncomfortable, Behavior is cooperative, appropriate for kr3 age, crying. Pain: Complains of pain in scalp, right eye, left eye and chest Pain currently is 9 out of 10 on a pain scale. Cardiovascular: Reports chest pain. Historical: - Allergies: 08:38 Compazine; kr3 08:38 Reglan; kr3 - PMHx: 08:38 Migraine; kr3 09:58 Hypertension; jh6 - PSHx: 08:38 tubal ligation; section; kr3 - Immunization history:: Adult Immunizations not up to date. - Social history:: Smoking status: Patient denies any tobacco usage or history of. Screenin:40 Abuse screen: Denies threats or abuse. Denies injuries from another. [facility] 08:40 Nutritional screening: No deficits noted. Tuberculosis screening: No symptoms or risk jh6 factors identified. Fall Risk None identified. Assessment: 08:49 Pain: Complains of pain in face and scalp Pain does not radiate. Pain currently is 9 jh6 out of 10 on a pain scale. Quality of pain is described as dull, Pain began a month ago. states that she has been out of her Depakote. 10:35 Reassessment: No changes from previously documented assessment. Patient and/or family jh6 updated on plan of care and expected duration. Pain level reassessed. Patient is alert, oriented x 3, equal unlabored respirations, skin warm/dry/pink. Pain: Complains of pain in face and scalp Pain currently is 7 out of 10 on a pain scale. 11:30 Reassessment: No changes from previously documented assessment. Patient is alert, jh6 oriented x 3, equal unlabored respirations, skin warm/dry/pink. 12:20 Reassessment: Patient is alert, oriented x 3, equal unlabored respirations, skin jh6 warm/dry/pink. states nausea is better but still having pain in her head. 13:05 Reassessment: Patient is alert, oriented x 3, equal unlabored respirations, skin jh6 warm/dry/pink. Patient states feeling better. Pain: Pain currently is 2 out of 10 on a pain scale. Vital Signs: 08:35 BP 132 / 92; Pulse 104; Resp 18; Pulse Ox 99% on R/A; Weight 58.97 kg; Height 5 ft. 1 kr3 in. (154.94 cm); Pain 9/10; 08:41 Temp 97.9(O); kr3 09:57 BP 136 / 84; Pulse 98; Resp 20; Pulse Ox 98% ; Pain 9/10; jh6 12:00 BP 136 / 90; Pulse 90; Resp 17; Pulse Ox 100% ; Pain 6/10; jh6 13:05 BP 113 / 86; Pulse 82; Resp 16; Pulse Ox 100% ; Pain 2/10; jh6 08:35 Body Mass Index 24.56 (58.97 kg, 154.94 cm) kr3 ED Course: 08:30 Patient arrived in ED. mr 08:38 Triage completed. kr3 08:40 EKG done, by ED staff, reviewed by Miquel Rios MD. dh3 08:41 Arm band placed on Patient placed in an exam room, on a stretcher. kr3 08:45 Gisela Arnold RN is Primary Nurse. jh6 08:50 Miquel Rios MD is Attending Physician. kdr 08:53 Bed in low position. Call light in reach. Side rails up X 1. Pulse ox on. NIBP on. jh6 08:54 No provider procedures requiring assistance completed. jh6 09:10 Inserted saline lock: 22 gauge in right forearm, using aseptic technique. Blood 6 collected. 09:56 XRAY Chest (1 view) In Process Unspecified. EDAL 13:06 IV discontinued, intact, bleeding controlled, No redness/swelling at site. Pressure jh6 dressing applied. Administered Medications: 10:12 Drug: Ketorolac 15 mg Route: IVP; Site: right forearm; jh6 10:12 Drug: Zofran (Ondansetron) 4 mg Route: IVP; Site: right forearm; jh6 10:12 Drug: Benadryl (diphenhydrAMINE) 25 mg Route: IVP; Site: right forearm; jh6 10:12 Drug: NS 0.9% 1000 ml Route: IV; Rate: 1 bolus; Site: right forearm; jh6 11:11 Drug: morphine 2 mg Route: IVP; Infused Over: 4 mins; Site: right forearm; jh6 12:40 Follow up: Response: No change in condition jh6 11:12 Drug: Phenergan (promethazine) 25 mg Route: IVP; Site: right forearm; jh6 12:40 Follow up: Response: Nausea is decreased jh6 12:39 Drug: morphine 2 mg Route: IVP; Infused Over: 4 mins; Site: right forearm; jh6 13:07 Follow up: Response: Pain is decreased [facility] Medication: 08:53 VIS not applicable for this client. 6 Outcome: 12:34 Discharge ordered by . [facility] 13:06 Discharged to home ambulatory. jh6 13:06 Condition: good 13:06 Discharge instructions given to patient, Instructed on discharge instructions, Demonstrated understanding of instructions. 13:07 Patient left the ED. [facility] Signatures: Dispatcher [employer] EDAL Miquel Rios MD MD [facility] MurryKymberly chavez, Oralia 3 Gisela Arnold RN RN 6 Lolita Solomon RN RN kr3
--- NOTE | 2022-01-26 12:35 | EDPHYS ---
Physician Documentation [facility] Name: Natanael Dyson Age: 26 yrs Sex: Female : 1995 Arrival Date: 01/26/2022 Time: 08:30 Bed 6 Private MD: ED Physician Miquel Rios HPI: 01/26 15:40 This 26 yrs old Female presents to ER via Ambulatory with complaints of Chest Pain. kdr 15:52 Patient complains of headache that feels most like is behind her eyes. She has had this kdr headache for about 3 to 4 days. She has had headaches like this before and is not the worst headache of her life. She states that Dr. Estrella uses medications that normally resolve her headache. Onset: The symptoms/episode began/occurred acutely, suddenly, yesterday. Severity of symptoms: At their worst the symptoms were mild in the emergency department the symptoms are unchanged. The patient has experienced similar episodes in the past, a few times. The patient has not recently seen a physician. Historical: - Allergies: 08:38 Compazine; kr3 08:38 Reglan; kr3 - PMHx: 08:38 Migraine; kr3 09:58 Hypertension; jh6 - PSHx: 08:38 tubal ligation; section; kr3 - Immunization history:: Adult Immunizations not up to date. - Social history:: Smoking status: Patient denies any tobacco usage or history of. ROS: 15:53 Constitutional: Negative for fever, chills, and weight loss, Eyes: Negative for injury, kdr pain, redness, and discharge, Neck: Negative for injury, pain, and swelling, Cardiovascular: Negative for chest pain, palpitations, and edema, Respiratory: Negative for shortness of breath, cough, wheezing, and pleuritic chest pain, Abdomen/GI: Negative for abdominal pain, nausea, vomiting, diarrhea, and constipation, Back: Negative for injury and pain, : Negative for injury, bleeding, discharge, and swelling, MS/Extremity: Negative for injury and deformity, Skin: Negative for injury, rash, and discoloration, Psych: Negative for depression, anxiety, suicide ideation, homicidal ideation, and hallucinations, Allergy/Immunology: Negative for hives, rash, and allergies, Endocrine: Negative for neck swelling, polydipsia, polyuria, polyphagia, and marked weight changes, Hematologic/Lymphatic: Negative for swollen nodes, abnormal bleeding, and unusual bruising. 15:53 Neuro: Positive for headache, Negative for altered mental status, dizziness, gait disturbance, hearing loss, loss of consciousness, numbness, seizure activity, speech changes, syncope, near syncope, tingling. Exam: 12:00 ECG was reviewed by the Attending Physician. kdr 15:53 Constitutional: This is a well developed, well nourished patient who is awake, alert, kdr and in no acute distress. Head/Face: Normocephalic, atraumatic. Eyes: Pupils equal round and reactive to light, extra-ocular motions intact. Lids and lashes normal. Conjunctiva and sclera are non-icteric and not injected. Cornea within normal limits. Periorbital areas with no swelling, redness, or edema. Neck: Trachea midline, no thyromegaly or masses palpated, and no cervical lymphadenopathy. Supple, full range of motion without nuchal rigidity, or vertebral point tenderness. No Meningismus. Chest/axilla: Normal chest wall appearance and motion. Nontender with no deformity. No lesions are appreciated. Cardiovascular: Regular rate and rhythm with a normal S1 and S2. No gallops, murmurs, or rubs. Normal PMI, no JVD. No pulse deficits. Respiratory: Lungs have equal breath sounds bilaterally, clear to auscultation and percussion. No rales, rhonchi or wheezes noted. No increased work of breathing, no retractions or nasal flaring. Abdomen/GI: Soft, non-tender, with normal bowel sounds. No distension or tympany. No guarding or rebound. No evidence of tenderness throughout. Back: No spinal tenderness. No costovertebral tenderness. Full range of motion. Skin: Warm, dry with normal turgor. Normal color with no rashes, no lesions, and no evidence of cellulitis. MS/ Extremity: Pulses equal, no cyanosis. Neurovascular intact. Full, normal range of motion. Vital Signs: 08:35 BP 132 / 92; Pulse 104; Resp 18; Pulse Ox 99% on R/A; Weight 58.97 kg; Height 5 ft. 1 kr3 in. (154.94 cm); Pain 9/10; 08:41 Temp 97.9(O); kr3 09:57 BP 136 / 84; Pulse 98; Resp 20; Pulse Ox 98% ; Pain 9/10; jh6 12:00 BP 136 / 90; Pulse 90; Resp 17; Pulse Ox 100% ; Pain 6/10; jh6 13:05 BP 113 / 86; Pulse 82; Resp 16; Pulse Ox 100% ; Pain 2/10; jh6 08:35 Body Mass Index 24.56 (58.97 kg, 154.94 cm) kr3 MDM: 12:34 Patient medically screened. kdr 15:53 Data reviewed: vital signs, nurses notes, lab test result(s), radiologic studies. kdr Counseling: I had a detailed discussion with the patient and/or guardian regarding: the historical points, exam findings, and any diagnostic results supporting the discharge/admit diagnosis, lab results, radiology results, the need for outpatient follow up. 01/26 09:06 Order name: Basic Metabolic Panel; Complete Time: 10:02 [facility] 01/26 09:06 Order name: CBC with Diff; Complete Time: 09:49 [facility] 01/26 09:06 Order name: Troponin HS; Complete Time: 10:02 [facility] 01/26 09:06 Order name: XRAY Chest (1 view); Complete Time: 12:00 [facility] 01/26 09:06 Order name: EKG; Complete Time: 09:06 [facility] 01/26 09:06 Order name: Cardiac monitoring; Complete Time: 09:34 [facility] 01/26 09:06 Order name: EKG - Nurse/Tech; Complete Time: 09:18 [facility] 01/26 09:06 Order name: IV Saline Lock; Complete Time: 09:34 [facility] 01/26 09:06 Order name: Labs collected and sent; Complete Time: :34 [facility] 01/26 09:06 Order name: O2 Per Protocol; Complete Time: :34 [facility] 01/26 09:06 Order name: O2 Sat Monitoring; Complete Time: 09:34 kdr EC:00 Rate is 101 beats/min. Rhythm is regular, Sinus tachycardia with No ectopy. QRS [place] is kdr Normal. [place] interval is normal. QRS interval is normal. QT interval is normal. Clinical impression: NSR w/ Non-specific ST/T Changes and Sinus tachycardia. Administered Medications: 10:12 Drug: Ketorolac 15 mg Route: IVP; Site: right forearm; [facility] 10:12 Drug: Zofran (Ondansetron) 4 mg Route: IVP; Site: right forearm; 6 10:12 Drug: Benadryl (diphenhydrAMINE) 25 mg Route: IVP; Site: right forearm; 6 10:12 Drug: NS 0.9% 1000 ml Route: IV; Rate: 1 bolus; Site: right forearm; 6 11:11 Drug: morphine 2 mg Route: IVP; Infused Over: 4 mins; Site: right forearm; 6 12:40 Follow up: Response: No change in condition [facility] 11:12 Drug: Phenergan (promethazine) 25 mg Route: IVP; Site: right forearm; 6 12:40 Follow up: Response: Nausea is decreased 6 12:39 Drug: morphine 2 mg Route: IVP; Infused Over: 4 mins; Site: right forearm; 6 13:07 Follow up: Response: Pain is decreased [facility] emergency [facility] Disposition Summary: 01/26/22 12:34 Discharge Ordered Location: Home kdr Problem: new kdr Symptoms: have improved kdr Condition: Stable kdr Diagnosis - Headache kdr Followup: kdr - With: Private Physician - When: 2 - 3 days - Reason: If symptoms return, Further diagnostic work-up, Recheck today's complaints, Continuance of care, Re-evaluation by your physician Discharge Instructions: - Discharge Summary Sheet kdr - General Headache Without Cause kdr Forms: - Medication Reconciliation Form kdr - Thank You Letter kdr Signatures: Dispatcher [employer] Miquel Maldonado MD MD kdr Gisela Arnold RN RN jh6 Lolita Solomon RN RN kr3
[2022-01-27 18:12] VITALS: TEMP 97.9
[2022-01-27 18:26] VITALS: BP 113/86; O2SAT 100
== END 2022-01-26 13:07 | disposition home or self-care (01) ==
LOC: ER 08:28
DX: R51.9 Headache, unspecified (principal); I10 Essential (primary) hypertension
CPT/HCPCS: 93005; 85025; 80048; 36415; 84484; 71045; 96375; 96374; 99284; J2550; J1200; J2270 ×2; J7030; J2405

== ENCOUNTER 2022-01-31 11:30 | Emergency (ER) | payer OTHER ==
--- OUTSIDE RECORDS SUMMARY | 2022-01-31 11:36 | XMS REPORT | Continuity of Care Document ---
:1995 Author Organization [facility] t Address [address] [place] [address] Care Team Providers Name Role Phone Sonny FELIX, Paz Cannon Primary Care Physician [phone] PRASANNA VARGAS Attending Clinician Unavailable Khang FELIX, Prasanna Oneal Attending Clinician VIJAY BARILLAS Attending Clinician Unavailable BERNARDO LEVY [...] Clinician Kaycee Soares Attending Clinician Doctor Unassigned, [place] Attending Clinician Unavailable Krystle FELIX, Anna Ricketts [...] d 2- 00:00:00 21:27:31 ity of 00:00: [place] [facility] Headache Headache Disease Resolve 2019-052020-09-06 [...] [place] and advice and advice 00 Or dical for for Branch contracept contracept bonifacio bonifacio management management Routine Routine Disease Resolve 2020-01-05 2020-01-05 Univers d 4-02 00:00:00 22:37:57 [place] [facility] Back pain Back pain Disease Resolve 2020-01-05 2020-01-05 Univers d 4-02 00:00:00 22:37:59 ity of 00:00: [place] [facility] History of History of Disease Resolve 2018-052020-01-05 2020-01-05 Univers tubal tubal d 2- 00:00:00 22:37:56 ity of ligation ligation 00:00: [place] [facility] Anxiety Anxiety Disease Resolve 2018-052020-01-05 2020-01-05 Univers during during d 2- 00:00:00 22:37:53 [place] second 00 [facility] trimester, trimester, Br anch antepartum antepartum [...] 00 Me dical born in born in [facility] hospital by by delivery delivery Normal Normal Disease Resolve 2019-08-13 2019-08-13 Univers labor labor d 3-10 00:00:00 16:34:03 ity of 00:00: [place] 00 [facility] 37 weeks 37 weeks Disease Resolve 2019-08-13 2019-08-13 Univers gestation gestation d 1-02 00:00:00 16:51:42 ity of of of 00:00: [place] 00 [facility] Gastroesop Gastroesop Disease Resolve 2018-052019-08-13 2019-08-13 Univers hageal hageal d 2- 00:00:00 16:33:48 ity of reflux in reflux in 00:00[place] [facility] Supervisio Supervisio Disease Resolve 2019-08-13 2019-08-13 Univers n of high n of high d 9- 00:00:00 16:32:56 ity of risk risk 00:00: [place] 00 Medi yessi in third in third Branch trimester trimester Multiparit Multiparit Disease Resolve 2019-08-13 2019-08-13 Univers y y d 02-06 00:00:00 16:33:04 ity of 00:00: [place] 00 Medical Branch History of History of Disease Resolve 2019-08-13 2019-08-13 Univers d 02-06 00:00:00 16:33:12 ity of delivery delivery 00:00: [place] 00 Medical Branch History of History of Disease Resolve 2019-08-13 2019-08-13 Univers d 02-06 00:00:00 16:33:20 it y of section section 00:00: [place] 00 Medical Branch History of History of Disease Resolve 2019-08-13 2019-08-13 Univers d 02-06 00:00:00 16:33:21 ity of 00:00: [place] 00 Medical Branch IUGR IUGR Disease Resolve [...] d 2-11 00:00:00 12:41:46 ity of 00:: [place] 00 Medical Branch Upper Upper Disease Resolve [...] delivery delivery 00:00: [place] affecting affecting 00 [facility] , , Br anch antepartum antepartum [...] [place] antepartum antepartum [facility] 39 weeks 39 weeks Disease Resolve 2019-05-30 2019-05-30 Univers gestation gestation d 1-17 00:00:00 21:44:45 ity of of of 00:00: [place] 00 [facility] Branch Disease Resolve 2019-05-28 2019-05-29 Univers [...] ical Branch Alcohol intake 2022-01-18 2022-01-18 Ex-drinker [facility] 00:00:00 00:00:00 (finding) [facility] Exposure to 2022-01-05 2022-01-15 Not sure University SARS-CoV-2 00:00:00 10:37:00 [facility] (event) Branch Tobacco use and 2021-12-12 2021-12-12 Smokeless tobacco Un iversity of exposure 00:00:00 00:00:00 non-user [facility] History SDOH 2019-02-06 2019-02-06 1 University o f Alcohol Frequency 00:00:00 00:00:00 [facility] Sex Ass[birth year] At [birth year] Universit y of 00:00:00 00:00:00 [place] [facility] Smoking Status Start Date Stop Date Source [...] [place] mg 00 :00 dose, On Medical [facility] 01/18/22 Branch at 1015, STAT ondansetron No 4mg 4 mg, Slow Univers (ZOFRAN 01-18 IV Push, ity of (PF)) 13:30: 13:33 ONCE, 1 [place] injection 4 00 :00 dose, On Medi yessi mg [facility] 01/18/22 Branch at 0830, [place] morpHINE (4 No 4mg 4 mg, Slow Univers mg/mL) 01-18 IV Push, ity of injection 4 13:30: 13:34 ONCE, 1 [place] mg 00 :00 dose, On Medical [facility] 01/18/22 Branch at 0830, STAT morpHINE (4 2021- No 4mg 4 mg, Slow Univers mg/mL) 01-18 IV Push, ity of injection 4 12:30: 11:39 ONCE, 1 [place] mg 00 :00 dose, On Medical [facility] 01/18/22 Branch at 0730, STAT famotidine [...] Branch at 0630, [place] iodixanoL 2021- No [id number] 80mL 80 mL, U nivers (VISIPAQUE 01-18 [...] Indication s: acute pain ondansetron 2021-0 Yes [id number] 4mg Take 1 Univers 4 mg 01-18 [id number] tablet by ity of disintegrat 00:00: mouth [place] ing tablet 00 every 8 Medica l (eight) Branch hours as needed for Nausea and Vomiting (N/V). ibuprofen Yes [id number] 600mg Take 1 Univers 600 mg 01-18 [id number] tablet by ity of tablet 00:00: mouth [place] 00 every 6 Medical (six) Branch hours as needed for Pain (scale 4-6). traMADoL 50 0 Yes [id number] 50mg Take 1 Univ ers mg tablet -08 tablet by ity o f 00:00: mouth [place] 00 every 6 Medical (six) Branch hours as needed for Pain (scale 7-10). Indication s: acute pain ondansetron Yes [id number] 4mg Take 1 Univers 4 mg 01-18 [id number] tablet by ity of disintegrat 00:00: mouth [place] ing tablet 00 every 8 Medica l (eight) Branch hours as needed for Nausea and Vomiting (N/V). ibuprofen Yes [id number] 600mg Take 1 Univers 600 mg 01-18 [id number] tablet by ity of tablet 00:00: mouth [place] 00 every 6 Medical (six) Branch hours as needed for Pain (scale 4-6). predniSONE 2021- Yes [id number] 40mg Take 2 Univers 20 mg 01-16 tablets by ity of tablet 00:00: 04:59 mouth in [place] 00 :00 the Medical morning Branch for 7 days. predniSONE 2021- Yes [id number] 40mg Take 2 Univers 20 mg 01-16 tablets by ity of tablet 00:00: 04:59 mouth in [place] 00 :00 the Medical morning Branch for [...] 00 :00 dose, On Medi yessi mg Sat01/15/22 Branch at 0915, [place] dexamethaso No 10mg 10 mg, Uni vers ne sod phos 01-15 Slow IV ity of PF 14:15: 14:37 Push, [place] injection 00 :00 ONCE, 1 Medical 10 mg dose, On Branch Sat01/15/22 at 0915, 1 mL proMETHazin 2021-0 Yes [id number] 25mg Take 1 Univers e 25 mg 9-05 tablet by ity of tablet 00:00: mouth [place] 00 every 6 Medical (six) Branch hours as needed for Nausea and Vomiting (N/V). proMETHazin 2021-0 Yes [id number] 25mg Take 1 Univers e 25 mg 9-05 tablet by ity of tablet 00:00: mouth [place] 00 every 6 Medical (six) Branch hours as needed for Nausea and Vomiting (N/V). proMETHazin 2022-0 Yes [id number] 25mg Take 1 Univers e 25 mg [...] IV ity of (BENADRYL) 23:45: 23:51 [place], [place] injection 00 :00 ONCE, 1 Medical 25 mg dose, On Branch [facility] 01/08/22 at 1845, STAT dexamethaso 2021- No 10mg 10 mg, Uni vers ne sod phos 01-08 Slow IV ity of PF 23:45: 23:50 [place], [place] injection 00 :00 ONCE, 1 Medical 10 mg dose, On Branch [facility] 01/08/22 at 1845, 1 mL ketorolac 2021- No 30mg 30 mg, Unive rs (TORADOL) 01-08 Slow IV ity of injection 23:45: 23:51 [place], [place] 30 mg 00 :00 ONCE, 1 Medical dose, On Branch [facility] 01/08/22 at 1845, [place] ondansetron Yes [id number] 4mg Take 1 Univers 4 mg 8-29 tablet by ity of disintegrat 00:00: mouth [place] ing tablet 00 every 8 Medica l (eight) Branch hours as needed for Nausea and Vomiting (N/V). acetaminoph 0 Yes [id number] 650mg Take 1 Univers en (TYLENOL 8-29 tablet by ity of ARTHRITIS 00:00: mouth [place] PAIN) 650 00 every 8 Medical mg CR (eight) Branch tablet hours as needed for Pain. ketorolac 0 Yes [id number] 10mg Take 1 U nivers 10 mg 8-29 tablet by ity of tablet 00:00: mouth [place] 00 every 6 Medical (six) Branch hours as needed for Pain (scale 4-6) or Pain (scale 7-10). metaxalone 2022-0 Yes [id number] 800mg Take 1 Univers (SKELAXIN) 8-29 tablet by ity of 800 mg 00:00: mouth in [place] tablet 00 the Medical morning Branch and 1 tablet at noon and 1 tablet in the evening. ondansetron 2022-0 Yes [id number] 4mg Take 1 Univers 4 mg 8-29 tablet by ity of disintegrat 00:00: mouth [place] ing tablet 00 every 8 Medica l (eight) Branch hours as needed for Nausea and Vomiting (N/V). acetaminoph 2022-0 Yes [id number] 650mg Take 1 Univers en (TYLENOL 8-29 tablet by ity of ARTHRITIS 00:00: mouth [place] PAIN) 650 00 every 8 Medical mg CR (eight) Branch tablet hours as needed for Pain. ketorolac 2022-0 Yes [id number] 10mg Take 1 U nivers 10 mg 8-29 tablet by ity of tablet 00:00: mouth [place] 00 every 6 Medical (six) Branch hours as needed for Pain (scale 4-6) or Pain (scale 7-10). metaxalone 2-0 Yes [id number] 800mg Take 1 Univers (SKELAXIN) 8-29 tablet by ity of 800 mg 00:00: mouth in [place] tablet 00 the Medical morning Branch and 1 tablet at noon and 1 tablet in the evening. ondansetron 2-0 Yes [id number] 4mg Take 1 Univers 4 mg 8-29 tablet by ity of disintegrat 00:00: mouth [place] ing tablet 00 every 8 Medica l (eight) Branch hours as needed for Nausea and Vomiting (N/V). acetaminoph 2-0 Yes [id number] 650mg Take 1 Univers en (TYLENOL 8-29 tablet by ity of ARTHRITIS 00:00: mouth [place] PAIN) 650 00 every 8 Medical mg CR (eight) Branch tablet hours as needed for Pain. ketorolac 2022-0 Yes [id number] 10mg Take 1 U nivers 10 mg 8-29 tablet by ity of tablet 00:00: mouth [place] 00 every 6 Medical (six) Branch hours as needed for Pain (scale 4-6) or Pain (scale 7-10). metaxalone 2022-0 Yes [id number] 800mg Take 1 Univers (SKELAXIN) 8-29 tablet by ity of 800 mg 00:00: mouth in [place] tablet 00 the Medical morning Branch and 1 tablet at noon and 1 tablet in the evening. ondansetron 2021-0 Yes [id number] 4mg Take 1 Univers 4 mg 8-29 tablet by ity of disintegrat 00:00: mouth [place] ing tablet 00 every 8 Medica l (eight) Branch hours as needed for Nausea and Vomiting (N/V). acetaminoph 2021-0 Yes [id number] 650mg Take 1 Univers en (TYLENOL 8-29 tablet by ity of ARTHRITIS 00:00: mouth [place] PAIN) 650 00 every 8 Medical mg CR (eight) Branch tablet hours as needed for Pain. ketorolac 2021-0 Yes [id number] 10mg Take 1 U nivers 10 mg 8-29 tablet by ity of tablet 00:00: mouth [place] 00 every 6 Medical (six) Branch hours as needed for Pain (scale 4-6) or Pain (scale 7-10). metaxalone 2021-0 Yes [id number] 800mg Take 1 Univers (SKELAXIN) 8-29 tablet [...] mouth. ity of supp. no.8 15:08: 00:00 [place] (TRAZAMINE 46 :00 Medical ORAL) Branch diphenhydrA Yes 25mg Take 25 mg Univers MINE 25 mg 12-12 by mouth ity o f capsule 13:03: every 6 [place] 04 (six) Medical hours as Branch needed for Allergies. carbamazepi 0 Yes Take by Uni vers ne 8- mouth. ity of (TEGRETOL 13:03: [place] ORAL) Medical Branch citalopram Yes Take by Univ ers hydrobromid 8- mouth. ity of e 13:03: [place] (CITALOPRAM 04 Medical ORAL) Branch ALBUTEROL 0 Yes Univers INHALE 12-12 ity of 13:03: Medical Branch diphenhydrA 0 Yes 25mg Take 25 mg Univers MINE 25 mg 12-12 by mouth ity o f capsule 13:03: every 6 [place] 04 (six) Medical hours as Branch needed for Allergies. carbamazepi 0 Yes Take by Uni vers ne 8- mouth. ity of (TEGRETOL 13:03: [place] ORAL) Medical Branch citalopram Yes Take by Univ ers hydrobromid 8- mouth. ity of e 13:03: [place] (CITALOPRAM 04 Medical ORAL) Branch ALBUTEROL 0 Yes Univers INHALE 12-12 ity of 13:03: [place] 04 Medical Branch diphenhydrA 0 Yes 25mg Take 25 mg Univers MINE 25 mg 12-12 by mouth ity o f capsule 13:03: every 6 [place] 04 (six) Medical hours as Branch needed for Allergies. carbamazepi 0 Yes Take by Uni vers ne 8- mouth. ity of (TEGRETOL 13:03: [place] ORAL) Medical Branch citalopram Yes Take by Univ ers hydrobromid 8- mouth. ity of e 13:03: [place] (CITALOPRAM 04 Medical ORAL) Branch ALBUTEROL 0 Yes Univers INHALE 8 ity of 13:03: [place] [address] Medical Branch diphenhydrA Yes 25mg Take 25 mg Univers MINE 25 mg 8-02 by mouth ity o f capsule 13:03: every 6 [place] 04 (six) Medical hours as Branch needed [...] ity o f capsule 13:03: every 6 [place] 04 (six) Medical hours as Branch needed for Allergies. carbamazepi Yes Take by Uni vers ne 8-02 mouth. ity of (TEGRETOL 13:03: [place] ORAL) Medical Branch citalopram Yes Take by Univ ers hydrobromid 8-02 mouth. ity of e 13:03: [place] (CITALOPRAM 04 Medical ORAL) Branch ALBUTEROL Yes Univers INHALE 8-02 ity of 13:03: [place] [address] Medical Branch traZODone Yes [id number] 50mg Take 1 U nivers 50 mg 8-02 tablet by ity of tablet 00:00: mouth at [place] 00 bedtime. Medical Branch SERTraline 0 Yes [id number] 50mg Take 1 Univers (ZOLOFT) 50 8-02 tablet by ity of mg tablet 00:00: [place] 00 the Medical morning. Branch traZODone 0 Yes [id number] 50mg Take 1 U nivers 50 mg 8-02 tablet by ity of tablet 00:00: mouth at [place] 00 bedtime. Medical Branch SERTraline 0 Yes [id number] 50mg Take 1 Univers (ZOLOFT) 50 8-02 tablet by ity of mg tablet 00:00: [place] 00 the Medical morning. Branch traZODone 0 Yes [id number] 50mg Take 1 U nivers 50 mg 8-02 tablet by ity of tablet 00:00: mouth at [place] 00 bedtime. Medical Branch SERTraline 2021-0 Yes [id number] 50mg Take 1 Univers (ZOLOFT) 50 8-02 tablet by ity of mg tablet 00:00: mouth in [facility] [place] 00 the Medical morning. Branch traZODone 2021-0 Yes [id number] 50mg Take 1 U nivers 50 mg 8-02 tablet by ity of tablet 00:00: mouth at [place] 00 bedtime. Medical Branch SERTraline 2021-0 Yes [id number] 50mg Take 1 Univers (ZOLOFT) 50 8-02 tablet by ity of mg tablet 00:00: mouth in [facility] [place] 00 the Medical morning. Branch traZODone 2021-0 Yes [id number] 50mg Take 1 U nivers 50 mg 8-02 tablet by ity of tablet 00:00: mouth at [place] [address] bedtime. Medical Branch SERTraline 0 Yes [id number] 50mg Take 1 Univers (ZOLOFT) 50 8-02 tablet by ity of mg tablet 00:00: mouth in [facility] [place] 00 the Medical morning. Branch sulfamethox 2021- No [id number] 1{tbl} Take 1 Univers azole-trime 8-02 08-06 tablet by it y of thoprim 00:00: 04:59 mouth in [place] (BACTRIM 00 :00 the Medical DS) 800-160 morning Branc h mg per and 1 tablet tablet in the evening. Do all this for 3 days. ibuprofen 0 Yes [id number] 600mg Take 1 Univers 600 mg 7-15 tablet by ity of tablet 00:00: mouth [place] [address] every 6 Medical (six) Branch hours as needed for Pain (scale 4-6). ibuprofen 2021-0 Yes [id number] 600mg Take 1 Univers 600 mg 7-15 tablet by ity of tablet 00:00: mouth [place] [address] every 6 Medical (six) Branch hours as needed for Pain (scale 4-6). ibuprofen 2021-0 Yes [id number] 600mg Take 1 Univers 600 mg 7-15 tablet by ity of tablet 00:00: mouth [place] [address] every 6 Medical (six) Branch hours as needed for Pain (scale 4-6). ibuprofen 2021-0 Yes [id number] 600mg Take 1 Univers 600 mg 7-15 tablet by ity of tablet 00:00: mouth [place] 00 every 6 Medical (six) Branch hours as needed for Pain (scale 4-6). ibuprofen 2021-0 Yes [id number] 600mg Take 1 Univers 600 mg 7-15 [...] Indication s: acute pain bromphenira 2021-0 Yes [id number] 5mL Take 5 mL Univers mine-pseudo 7-09 by mouth 4 it y of ephedrine-D 00:00: (four) [place] M (BROMFED 00 times Medical DM) 2-30-10 daily as Bran ch mg/5 mL needed for syrup Congestion /Allergies or Cough. naproxen 2021-0 Yes [id number] 500mg Take 1 U nivers 500 mg 7-09 tablet by ity of tablet 00:00: mouth [place] 00 every 8 Medical (eight) Branch hours as needed for Pain (scale 4-6). cyclobenzap 2021-0 Yes [id number] 10mg Take 1 Univers rine 10 mg 7-09 tablet by ity of tablet 00:00: mouth at [place] 00 bedtime as Medical needed for Branch Muscle Spasms. bromphenira 2021-0 Yes [id number] 5mL Take 5 mL Univers mine-pseudo 7-09 by mouth 4 it y of ephedrine-D 00:00: (four) [place] M (BROMFED 00 times Medical DM) 2-30-10 daily as Bran ch mg/5 mL needed for syrup Congestion /Allergies or Cough. naproxen 2021-0 Yes [id number] 500mg Take 1 U nivers 500 mg 7-09 tablet by ity of tablet 00:00: mouth [place] 00 every 8 Medical (eight) Branch hours as needed for Pain (scale 4-6). cyclobenzap 2021-0 Yes [id number] 10mg Take 1 Univers rine 10 mg 7-09 tablet by ity of tablet 00:00: mouth at [place] 00 bedtime as Medical needed for Branch Muscle Spasms. bromphenira 2021-0 Yes [id number] 5mL Take 5 mL Univers mine-pseudo 7-09 by mouth 4 it y of ephedrine-D 00:00: (four) [place] M (BROMFED 00 times Medical DM) 2-30-10 daily as Bran ch mg/5 mL needed for syrup Congestion /Allergies or Cough. naproxen 2021-0 Yes [id number] 500mg Take 1 U nivers 500 mg 7-09 tablet by ity of tablet 00:00: mouth [place] 00 every 8 Medical (eight) Branch hours as needed for Pain (scale 4-6). cyclobenzap 2021-0 Yes [id number] 10mg Take 1 Univers rine 10 mg 7-09 tablet by ity of tablet 00:00: mouth at [place] 00 bedtime as Medical needed for Branch Muscle Spasms. bromphenira 2021-0 Yes [id number] 5mL Take 5 mL Univers mine-pseudo 7-09 by mouth 4 it y of ephedrine-D 00:00: (four) [place] M (BROMFED 00 times Medical DM) 2-30-10 daily as Bran ch mg/5 mL needed for syrup Congestion /Allergies or Cough. naproxen 2021-0 Yes [id number] 500mg Take 1 U nivers 500 mg 7-09 tablet by ity of tablet 00:00: mouth [place] 00 every 8 Medical (eight) Branch hours as needed for Pain (scale 4-6). cyclobenzap 2021-0 Yes [id number] 10mg Take 1 Univers rine 10 mg 7-09 tablet by ity of tablet 00:00: mouth at [place] 00 bedtime as Medical needed for Branch Muscle Spasms. bromphenira 2021-0 Yes [id number] 5mL Take 5 mL Univers mine-pseudo 7-09 by mouth 4 it y of ephedrine-D 00:00: (four) [place] M (BROMFED 00 times Medical DM) 2-30-10 daily as Bran ch mg/5 mL needed for syrup Congestion /Allergies or Cough. naproxen 2021-0 Yes [id number] 500mg Take 1 U nivers 500 mg 7-09 tablet by ity of tablet 00:00: mouth [place] 00 every 8 Medical (eight) Branch hours as needed for Pain (scale 4-6). cyclobenzap 0 Yes [id number] 10mg Take 1 Univers rine 10 mg 7-09 tablet by ity of tablet 00:00: mouth at [place] 00 bedtime as Medical needed for Branch Muscle Spasms. ibuprofen 0 Yes [id number] 605mg Take 30.25 Univers 100 mg/5 mL 6-15 mL by ity of oral 00:00: mouth [place] suspension 00 every 6 Medica l (six) Branch hours as needed for Pain (scale 4-6) or Temp > 38.5 C. ibuprofen 0 Yes [id number] 605mg Take 30.25 Univers 100 mg/5 mL 6-15 mL by ity of oral 00:00: mouth [place] suspension 00 every 6 Medica l (six) Branch hours as needed for Pain (scale 4-6) or Temp > 38.5 C. ibuprofen 0 Yes [id number] 605mg Take 30.25 Univers 100 mg/5 mL 6-15 mL by ity of oral 00:00: mouth [place] suspension 00 every 6 Medica l (six) Branch hours as needed for Pain (scale 4-6) or Temp > 38.5 C. ibuprofen 0 Yes [id number] 605mg Take 30.25 Univers 100 mg/5 mL 6-15 mL by ity of oral 00:00: mouth [place] suspension 00 every 6 Medica l (six) Branch hours as needed for Pain (scale 4-6) or Temp > 38.5 C. ibuprofen 0 Yes [id number] 605mg Take 30.25 Univers 100 mg/5 mL 6-15 mL by ity of oral 00:00: mouth [place] suspension 00 every 6 Medica l (six) Branch hours as needed for Pain (scale 4-6) or Temp > 38.5 C. acetaminoph 2021-0 2021- No [id number] 608mg Take 19 mL Univers en 160 [...] 00 :00 Medical Branch mometasone 0 Yes [id number] 1{spray Use 1 Univers 50 5-19 } [place] in ity of mcg/actuati 00:00: each [place] on nasal 00 nostril 2 Medica l spray (two) Branch times daily. mometasone Yes [id number] 1{spray Use 1 Univers 50 5-19 } [place] in ity of mcg/actuati 00:00: each [place] on nasal 00 nostril 2 Medica l spray (two) Branch times daily. mometasone Yes [id number] 1{spray Use 1 Univers 50 5-19 } [place] in ity of mcg/actuati 00:00: each [place] on nasal 00 nostril 2 Medica l spray (two) Branch times daily. mometasone 2021-0 Yes [id number] 1{spray Use 1 Univers 50 5-19 } [place] in ity of mcg/actuati 00:00: each [place] on nasal 00 nostril 2 Medica l spray (two) Branch times daily. mometasone 2021- Yes [id number] 1{spray Use 1 Univers 50 5-19 } [place] in ity of mcg/actuati 00:00: each [place] on nasal 00 nostril 2 Medica l spray (two) Branch times daily. cetirizine Yes [id number] 10mg Take 1 U nivers (ZYRTEC) 10 5-16 tablet by ity of mg tablet 00:00: mouth [place] 00 daily. Medical Branch cetirizine 0 Yes [id number] 10mg Take 1 U nivers (ZYRTEC) 10 5-16 tablet by ity of mg tablet 00:00: mouth 00 daily. Medical Branch cetirizine 2-0 Yes [id number] 10mg Take 1 U nivers (ZYRTEC) 10 5-16 tablet by ity of mg tablet 00:00: mouth 00 daily. Medical Branch cetirizine 2021-0 Yes [id number] 10mg Take 1 U nivers (ZYRTEC) 10 5-16 tablet by ity of mg tablet 00:00: mouth 00 daily. Medical Branch cetirizine 2021-0 Yes [id number] 10mg Take 1 U nivers (ZYRTEC) 10 5-16 tablet by ity of mg tablet 00:00: mouth 00 daily. Medical Branch DULoxetine 2-0 Yes Univers 30 mg 5-09 ity of capsule 00:00: [place] 00 Medical Branch gabapentin 2022-0 Yes Univers 300 mg 5-09 ity of capsule 00:00: [place] 00 Medical Branch ondansetron 2022-0 Yes Univer s 4 mg tablet 5-09 ity of 00:00: [place] 00 Medical Branch DULoxetine 2022-0 Yes Univers 30 mg 5-09 ity of capsule 00:00: [place] 00 Medical Branch gabapentin 2022-0 Yes Univers 300 mg 5-09 ity of capsule 00:00: [place] 00 Medical Branch ondansetron 2022-0 Yes Univer s 4 mg tablet 5-09 ity of 00:00: [place] 00 Medical Branch DULoxetine 2022-0 Yes Univers 30 mg 5-09 ity of capsule 00:00: [place] 00 Medical Branch gabapentin 2022-0 Yes Univers 300 mg 5-09 ity of capsule 00:00: [place] 00 Medical Branch ondansetron 2022-0 Yes Univer s 4 mg tablet 5-09 ity of 00:00: [place] 00 Medical Branch DULoxetine 2022-0 Yes Univers 30 mg 5-09 ity of capsule 00:00: [place] 00 Medical Branch gabapentin 2022-0 Yes Univers 300 mg 5-09 ity of capsule 00:00: [place] 00 Medical Branch ondansetron 2022-0 Yes Univer s 4 mg tablet 5-09 ity of 00:00: [place] 00 Medical Branch DULoxetine 2022-0 Yes Univers 30 mg 5-09 ity of capsule 00:00: [place] 00 Medical Branch gabapentin 2022-0 Yes Univers 300 mg 09-18 ity of capsule 00:00: [place] Medical Branch ondansetron 2021-0 Yes Univer s 4 mg tablet 09-18 ity of 00:00: [place] [facility] Branch amLODIPine 2021-0 Yes Univers 5 mg tablet 09-01 ity of 00:00: [place] [facility] Branch amLODIPine 2021-0 Yes 5mg Take 5 mg Un sushant 5 mg tablet 22 by mouth. ity of 00:00: [place] [facility] Branch amLODIPine 2021-0 Yes Univers 5 mg tablet - ity of 00:00: [place] [facility] Branch amLODIPine 2021-0 Yes 5mg Take 5 mg Un sushant 5 mg tablet 22 by mouth. ity of 00:00: [place] [facility] Branch amLODIPine 2021-0 Yes Univers 5 mg tablet 09-01 ity of 00:00: [place] [facility] amLODIPine 2021-0 Yes 5mg Take 5 mg Un sushant 5 mg tablet 09-01 by mouth. ity of 00:00: [place] [facility] Branch amLODIPine 2021-0 Yes Univers 5 mg tablet 09-01 ity of 00:00: [place] [facility] Branch amLODIPine 2021-0 Yes 5mg Take 5 mg Un sushant 5 mg tablet 09-01 by mouth. ity of 00:00: [place] [facility] Branch amLODIPine 2021-0 Yes Univers 5 mg tablet 09-01 ity of 00:00: [place] [facility] amLODIPine 2021-0 Yes 5mg Take 5 mg Un sushant 5 mg tablet -22 by mouth. ity of 00:00: [place] [facility] Branch buPROPion 2021-0 Yes Univers XL 150 [...] tablet by ity of tablet 00:00: mouth ([facility]) Medical times Branch daily with meals. [...] by ity of tablet 00:00: mouth 2 ([facility]) Medical times Branch daily with meals. 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 Take 1 Univers oL 4-08 [...] Immunizations Ordered Filled Immunization Date Status Comments [facility] e Immunization Name Name Influenza Virus 2021-06-11 Completed Universit y of Vaccine 00:00:00 [place] [facility] [facility] Influenza Virus 2021-06-11 Completed Universit y of Vaccine 00:00:00 [facility] Influenza Virus 2021-06-11 Completed Universit y of Vaccine 00:00:00 [facility] Influenza Virus 2021-06-11 Completed Universit y of Vaccine 00:00: [facility] Influenza Virus 2021-06-11 Completed Universit y of Vaccine 00:00:00 [facility] Influenza Virus 2020-05-19 Completed Universit y of Vaccine 00:00:00 [facility] Influenza Virus 2020-05-19 Completed Universit y of Vaccine 00:00:00 [facility] Influenza Virus 2020-05-19 Completed Universit y of Vaccine 00:00:00 [facility] Influenza Virus 2020-05-19 Completed Universit y of Vaccine 00:00:00 [facility] Influenza Virus 2020-05-19 Completed Universit y of Vaccine 00:00:00 [facility] Influenza Virus 2020-05-19 Completed Universit y of Vaccine 00:00:00 [facility] Influenza Virus 2020-05-16 Completed Universit y of [...] Completed University of VACCINE 00:00:00 [facility] TDAP (ADACEL) 2019-05-21 Completed University of VACCINE 00:00:00 [facility] TDAP (ADACEL) 2019-05-21 Completed University of VACCINE 00:00:00 [facility] TDAP (ADACEL) 2019-05-21 Completed University of VACCINE 00:00:00 [facility] TDAP (ADACEL) 2019-05-21 Completed University of VACCINE 00:00:00 [facility] TDAP (ADACEL) 2019-05-21 Completed University of VACCINE 00:00:00 [facility] Influenza Virus 2019-02-06 Completed Universit y of Vaccine Quad .5 mL 00:00:00 [facility] 6+ [facility] Influenza Virus 2019-02-06 Completed Universit y of Vaccine Quad .5 mL 00:00:00 [facility] Influenza Virus 2019-02-06 Completed Universit y of Vaccine [place] .5 mL 00:00:00 [facility]+ [facility] Influenza Virus 2019-02-06 Completed Universit y of Vaccine [place] .5 mL 00:00:00 [facility] 6+ [facility] Influenza Virus 2019-02-06 Completed Universit y of Vaccine [place] .5 mL 00:00:00 [facility] 6+ [facility] Influenza Virus 2019-02-06 Completed Universit y of Vaccine [place] .5 mL 00:00:00 [facility] Vital Signs Vital Name Observation Time Observation Value Comments Source Systolic blood 2022-01-18 14:50:00 144 mm[Hg] Univer sity of pressure [facility] Diastolic blood 2022-01-18 14:50:00 92 mm[Hg] Unive rsity of pressure [facility] Heart rate 2022-01-18 14:50:00 94 /min [facility] Respiratory rate 2022-01-18 14:50:00 20 /min Univ ersity of [facility] Oxygen saturation in 2022-01-18 14:50:00 99 /min University of Arterial blood by [place] Pulse oximetry Branch Body weight 2022-01-18 10:18:00 54.432 kg [facility] BMI 2022-01-18 10:18:00 22.67 kg/m2 [facility] Body temperature 2022-01-18 10:15:00 36.72 Irene [facility] ersity of [facility] Systolic blood 2022-01-15 15:48:26 125 mm[Hg] Univer sity of pressure [facility] Diastolic blood 2022-01-15 15:48:26 85 mm[Hg] Unive rsity of pressure [facility] Heart rate 2022-01-15 15:48:26 95 /min Universi ty [facility] Respiratory rate 2022-01-15 15:48:26 18 /min Univ ersity of [facility] Oxygen saturation in 2022-01-15 15:48:26 98 /min University of Arterial blood by [employer] y[employer]i Pulse oximetry Branch Body temperature 2022-01-15 13:32:00 37.11 Irene Univ ersity of [facility] Body height 2022-01-15 13:32:00 154.9 cm Universi ty [facility] Body weight 2022-01-15 13:32:00 54.432 kg Universi ty [facility] BMI 2022-01-15 13:32:00 22.67 kg/m2 [facility] Systolic blood 2022-01-09 00:37:11 127 mm[Hg] Univer sity of pressure [facility] Diastolic blood 2022-01-09 00:37:11 90 mm[Hg] Unive rsity of pressure [facility] Heart rate 2022-01-09 00:37:11 94 /min Universi ty [facility] [place] [facility] [place] Body temperature 2022-01-09 00:37:11 37.11 Irene Univ ersity of [facility] Respiratory rate 2022-01-09 00:37:11 16 /min Univ ersity of [facility] Oxygen saturation in 2022-01-09 00:37:11 97 /min University Arterial blood by [facility] Pulse oximetry Branch Body height 2022-01-08 23:03:00 154.9 cm Universi ty [facility] Body weight 2022-01-08 23:03:00 58.06 kg [facility]i ty [facility] BMI 2022-01-08 23:03:00 24.19 kg/m2 [facility] Systolic blood 2021-12-12 18:00:00 126 mm[Hg] Univer sity of pressure [facility] Diastolic blood 2021-12-12 18:00:00 87 mm[Hg] Unive rsity of pressure [facility] Heart rate 2021-12-12 18:00:00 86 /min Universi ty [facility] Body temperature 2021-12-12 18:00:00 36.89 Irene Univ ersity of [facility] Respiratory rate 2021-12-12 18:00:00 18 /min Univ ersity of [facility] Body height 2021-12-12 18:00:00 154.9 cm [facility] Body weight 2021-12-12 18:00:00 57.153 kg [facility] BMI 2021-12-12 18:00:00 23.81 kg/m2 [facility] Procedures Procedure Date / Time Performing Clinician Source Performed US GALL BLADDER 2022-01-18 12:31:09 Bernardo Levy [facility] US PELVIS COMPLETE WITH 2022-01-18 12:21:13 Melvin Zhao [facility] TRANSVAGINAL [facility] CT ABDOMEN PELVIS W 2022-01-18 11:20:50 Melvin Zhao [facility] CONTRAST [facility] POCT TEST 2022-01-18 10:57:00 Jayy Kennedy [facility] COVID-19 (ID NOW RAPID 2022-01-18 10:57:00 Jayy Kennedy [facility] TESTING) [facility] Branch URINALYSIS 2022-01-18 10:47:00 Jayy Kennedy [facility] LIPASE 2022-01-18 10:29:00 Jayy Kennedy [facility] TEST, SERUM 2022-01-18 10:29:00 Jayy Kennedy [facility] HEPATIC FUNCTION PANEL 2022-01-18 10:29:00 Jayy Kennedy [facility] ([id number]) (ALB,T.PRO,BILI [facility] T,BU/BC,ALT,AST,ALK PHOS) BASIC METABOLIC PANEL 2022-01-18 10:29:00 Jayy Kennedy [facility] (NA, K, CL, CO2, Medical Branch GLUCOSE, BUN, CREATININE, CA) CBC WITH DIFF 2022-01-18 10:29:00 Jayy Kennedy [facility] CONSENT/REFUSAL FOR 2022-01-18 10:13:31 Doctor Unassigned, No Un [facility] DIAGNOSIS AND TREATMENT Name [facility] CT HEAD WO CONTRAST 2022-01-15 15:22:29 Kenny [facility] TEST, SERUM 2022-01-15 14:36:00 Kenny [facility] BASIC METABOLIC PANEL 2022-01-15 14:36:00 Kenny [facility] (NA, K, CL, CO2, [facility] GLUCOSE, BUN, CREATININE, CA) CBC WITH DIFF 2022-01-15 14:36:00 Kenny [facility] CONSENT/REFUSAL FOR 2022-01-15 13:28:12 Doctor Unassigned, No [facility] [place] [facility] TREATMENT Name Medical Branch XR CERVICAL SPINE 4 VW 2022-01-09 00:29:16 Dom Humberto [facility] XR LUMBAR SPINE 4 VW 2022-01-09 00:29:16 Humberto Fernandes [facility] XR SPINE THORACIC 3 VW 2022-01-09 00:29:16 Dom [facility] URINALYSIS 2022-01-08 23:50:00 Humberto Fernandes [facility] CONSENT/REFUSAL FOR 2022-01-08 22:51:08 Doctor Unassigned, No [facility] Name [facility] Branch GALV ONLY - VAGINAL 2021-12-12 18:37:00 Prasanna Vargas [facility] PATHOGENS BY [facility] Medical [facility] ACID TESTING URINE CULTURE 2021-12-12 18:32:00 Vargas [facility] f [facility] POCT TEST 2021-12-12 18:31:00 [facility] Prasanna [facility] POCT URINALYSIS W/O 2021-12-12 18:31:00 [facility] SPECIFIC GRAVITY [facility] Plan of Care Planned Activity Planned Date Details Comments Source Future Scheduled 2029-05-21 DTaP,Tdap,and Td [facility] Test 00:00:00 Vaccines (2 - Td) Medical Br anch [code = DTaP,Tdap,and Td Vaccines (2 - Td)] Future Scheduled 2021-09-06 Depression screening Uni [facility] Test 00:00:00 (procedure) [code = Medical Branch 205933263] Future Scheduled 2016-02-19 Screening for [facility] Test 00:00:00 malignant neoplasm Medical B ranch of cervix (procedure) [code = 491610956] Future Scheduled 2013 Hepatitis C [facility] Test 00:00:00 screening Medical Branch (procedure) [code = 397247500] Future Scheduled 2011 SARS-CoV-2 [facility] Test 00:00:00 (COVID-19) Vaccine Medical B ranch (1) [code = SARS-CoV-2 (COVID-19) Vaccine (1)] Future Scheduled 2006 HPV VACCINES (1 - Univer [facility] Test 00:00:00 2-dose series) [code Medical Branch = HPV VACCINES (1 - 2-dose series)] Encounters Start End Encounter Admission Attending Care Care Encounter Source Date/Time Date/Time Type Type Clinicians Facility Department ID 2022-12-12 2022-12-12 Outpatient R PRASANNA VARGAS [facility] [id number] Univers 09:30:00 09:30:00 [id number] ity [facility] 2022-01-26 2022-01-26 Case Alicia Vargasen [facility] [id number] Univers 00:00:00 00:00:00 Management Jm LAWSON [id number] [place] [id number] Or dic[address] 2022-01-22 2022-01-22 Outpatient R ERAN [facility] [id number] Univers 11:00:00 11:00:00 VIJAY [id number] [facility] 2022-01-22 2022-01-22 Outpatient R ERAN [facility] [id number] Univers 11:00:00 11:00:00 VIJAY [facility] 2022-01-18 2022-01-18 Emergency X GARDENIA [facility] ERT [id number] Univers 05:17:00 10:25:00 BERNARDO [facility] 2022-01-18 2022-01-18 Emergency Jayy Kennedy W TRAU[place] [id number] Univers 05:17:00 10:25:00 Bernardo Levy [place] [id number] [id number] [address] 2022-01-15 2022-01-15 Emergency X KENNY [facility] ERT [id number] Univers 08:34:00 10:49:00 MAURA [facility] 2022-01-15 2022-01-15 Emergency Larry Perez [facility] 1.2.840.1 [id number] Univers 08:34:00 10:49:00 Kenny FredoniaChristopher LAWSON [id number] ity of [place] 4.2.7.2.686 [facility] [id number] [address] 2022-01-08 2022-01-08 Emergency X DOM, [facility] ERT [id number] Univers 18:04:00 20:09:00 HUMBERTO ity [facility] 2022-01-08 2022-01-08 [facility] 1.2.840.114 [id number] Univers 18:04:00 20:09:00 Humbertoasim LAWSON 350.1.13.10 i ty of [place] 4.2.7.2.686 [facility] [id number] [address] 2021-12-12 2021-12-12 Office Prasanna Vargas [facility] 1.2.840.114 [id number] Univers 13:30:00 13:40:21 Visit Suzanna Carnes 350.1.13.10 ity of [place] 4.2.7.2.686 [facility] PROFESSIO [id number] Or dical NAL [address] 2021-12-12 2021-12-12 Outpatient R DEYVI [facility] [id number] Univers 13:30:00 13:40:21 SUZANNA lechuga [facility] 2020-11-10 2020-11-10 Ur[address] Alissa Collins [facility] 1.2.840.114 [id number] 18:42:46 19:53:43 [facility] 350.1.13.10 [place] 4.2.7.2.686 Professio [id number] nal [address] 2020-10-31 2020-10-31 Emergency Kaycee Méndez [facility] 1.2.840.114 [id number] 18:52:00 22:15:00 Sharlene Lawson 350.1.13.10 [place] 4.2.7.2.686 [place] [id number] [facility] 2020-10-31 2020-10-31 Orders Doctor ORTEGA 1.2.840.114 [id number] 00:00:00 00:00:00 Only Unassigned, YAZMIN 350.1.13.10 [facility] 4.2.7.2.686 [id number] 2020-10-20 2020-10-20 Emergency Kaycee Méndez [facility] 1.2.840.114 [id number] 14:02:00 17:13:00 Sharlene Lawson 350.1.13.10 [place] 4.2.7.2.686 [place] [id number] 084 2020-10-14 2020-10-14 Hospital Prasanna Vargas [facility] 1.2.840.114 [id number] 10:00:00 23:59:00 Encounter Jm Lawson 350.1.13.10 [place] 4.2.7.2.686 [place] [id number] 806 2020-10-09 2020-10-[address] [facility] [id number] 12:00:00 15:57:00 Anna Lawson 350.1.13.10 [place] 4.2.7.2.686 [place] [id number] 084 2020-10-06 2020-10-06 Office Prasanna Vargas [facility] 1.2.156.114 [id number] 08:53:00 09:46:44 Visit Jm Lauraton 350.1.13.10 [place] 4.2.7.2.686 Professio [id number] [address] 2020-03-04 2020-03-[address] [facility] 1.2.840.114 [id number] 00:00:00 00:00:00 MULTISPEC 350.1.13.10 IALTY 4.2.7.2.686 [place] [id number] AND ERIBERTO [facility] Results Test Description Test Time Test Comments Results Result Comments Source LIPASE 2022-01-18 12:45:21 Test Item Value Reference Range Interpretation Comme nts LIPASE (test code = 0260334200) 41 U/L 0-220 Lab Interpretation (test code = 57747-0) Normal [id number] 10:57:00 Test Item Value Reference Range Interpretation Comments POCT PREG (test code = 1605) Negative On board controls acceptable with Present C Line (test code = 3574) POCT PREG LOT # (test code = 3574) [id number] POCT PREG TEST DATE (test 03/12/2023 code = 3576) Lab Interpretation (test code = Normal 97460-6) [facility] METABOLIC PANEL (NA, K, CL, CO2, GLUCOSE, BUN, CREATININE, CA)2022-01-18 10:56:51 Test Item Value Reference Range Interpretation Comments NA (test code = 137 mmol/L 135-145 6749726310) K (test code = 4.6 mmol/L 3.5-5 Slight 3936331531) hemolysis CL (test code = 108 mmol/L 98-108 8402082732) CO2 TOTAL (test code 22 mmol/L 23-31 L = 4156102308) AGAP (test code = 2-16 8026244575) BUN (test code = 11 mg/dL 7-23 Slight 1907759935) hemolysis GLUCOSE (test code = 83 mg/dL 70-110 2583011430) CREATININE (test code 0.68 mg/dL 0.5-1.04 = 8031271372) CALCIUM (test code = 8.8 mg/dL 8.6-10.6 3365623385) eGFR (test code = mL/min/1.73m2 0542500532) WESLEY (test code = WESLEY) Association of [...] tests). Lab Interpretation Abnormal (test code = 69002-9) [facility] (74040[facility] (ALB,T.PRO,BILI T,BU/BC,ALT,AST,ALK PHOS)2022-01-18 10:56:51 Test Item Value Reference Range Interpretation Comments TOTAL BILI (test code = 3048880433) 0.6 mg/dL 0.1-1.1 BILI UNCON (test code = 0969795284) 0.1 mg/dL 0.1-1.1 BILI CONJ (test code = 3568401787) 0.0 mg/dL 0-0.3 T PROTEIN (test code = 7584618645) 8.6 g/dL 6.3-8.2 H ALBUMIN (test code = 3430841507) 5.1 g/dL 3.5-5 H ALK PHOS (test code = 0648411530) 79 U/L 34-122 ALTv (test code = 1742-6) 117 U/L 5-35 H AST(SGOT) (test code = 4467717392) 163 U/L 13-40 H Lab Interpretation (test code = Abnormal 37107-0) [facility], [id number] 10:54:25 Test Item Value Reference Range Interpretation Comments PREG SERUM (test code Negative = 9878623185) WESLEY (test code = WESLEY) Less than 10 IU/L. ?If low titer or ectopic is suspected, resubmit specimen in 48-72 hours. [facility] WITH [id number] 10:40:49 Test Item Value Reference Range Interpretation [...] RDW-SD (test code = 45.3 fL 39-49.9 29222-3) RDW-CV (test code = 14.5 % 12-15.5 788-0) PLT (test code = See_Comment [Automated 777-3) message] The sy stem which generated this result transmitted reference range : 166 - 358 10*3/ ?L. The reference r david was not used to interpret this result as normal/abnormal . MPV (test code = 9.5 fL 9.5-12.9 16163-3) NRBC/100 WBC (test See_Comment [Automat ed code = 7860165071) message] The system which generated this result transmitted reference range : 0.0 - 10.0 /100 WBCs. The refer ence range was not u sed to interpret th is result as normal/abnormal . NRBC x10^3 (test code See_Comment [Auto mated = 4470809486) message] The s ystem which generated this result transmitted reference range : 10*3/?L. The reference range was not used to interpret this result as normal/abnormal . GRAN MAT (NEUT) % 47.6 % (test code = 770-8) IMM GRAN % (test code 0.60 % = 6853192002) LYMPH % (test code = 39.9 % 736-9) MONO % (test code = 5.9 % 5905-5) EOS % (test code = 5.3 % 713-8) BASO % (test code = 0.7 % 706-2) GRAN MAT x10^3(ANC) 4.45 10*3/uL 1.88-7.09 (test code = 6066650648) IMM GRAN x10^3 (test 0.06 10*3/uL 0-0.06 code = 8567499027) LYMPH x10^3 (test code 3.74 10*3/uL 1.32-3.29 H = 731-0) MONO x10^3 (test code 0.55 10*3/uL 0.33-0.92 = 742-7) EOS x10^3 (test code = 0.50 10*3/uL 0.03-0.39 H 711-2) BASO x10^3 (test code 0.07 10*3/uL 0.01-0.07 = 704-7) Lab Interpretation Abnormal (test code = 50589-8) [facility] [id number] 18:31:00 Test Item Value Reference Range Interpretation Comments POCT PREG (test code = 1605) Negative On board controls acceptable with C Yes Line (test code = 3574) POCT PREG LOT # (test code = 3575) POCT PREG TEST DATE (test code = 3576) [facility] URINALYSIS W/O SPECIFIC [id number] 18:31:00 Test Item Value Reference Range Interpretation [...] Trace Negative - Negative [facility]"
--- NOTE | 2022-01-31 12:46 | RAD REPORT ---
EXAM DESCRIPTION: RAD - Hand Right 3 View - 01/31/2022 12:37 pm CLINICAL HISTORY: PAIN COMPARISON: No comparisons FINDINGS: No fracture or dislocation is seen.
[2022-01-31] MEDS ORDERED: ONDANSETRON 4 MG/2 ML VIAL ONE (12:55)
[2022-01-31] MEDS ORDERED: MORPHINE 4 MG/ML SYR ONE ×2 (12:55→14:35)
[2022-01-31 13:49] LABS: Urine Blood 3+ (Negative); Urine Glucose Negative (Negative); Urine Protein 1+ (Negative); Urine Specific Gravity 1.025 (1.005-1.030)
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
[2022-01-31 15:18] LABS: Urine Specific Gravity/Preg 1.025 (1.005-1.030)
[2022-02-01 21:36] VITALS: TEMP 97.4
[2022-02-01 21:38] VITALS: BP 119/89; O2SAT 98
== END 2022-01-31 14:45 | disposition home or self-care (01) ==
LOC: ER 11:30
DX: G43.009 Migraine without aura, not intractable, without status migrainosus (principal); S60.221A Contusion of right hand, initial encounter; Z72.0 Tobacco use
CPT/HCPCS: 81025; 81003; 73130; J2405

== ENCOUNTER 2022-02-08 01:32 | Emergency (ER) | payer OTHER ==
--- OUTSIDE RECORDS SUMMARY | 2022-02-08 01:39 | XMS REPORT | Continuity of Care Document ---
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 13:03: [place] 04 Medical Branch diphenhydrA 2021-0 Yes 25mg Take 25 mg Univers MINE 25 mg 8-02 by mouth ity o f capsule 13:03: every 6 [place] [address] (six) Medical hours as Branch needed for Allergies. carbamazepi 0 Yes Take by Uni vers ne 8-02 mouth. ity of (TEGRETOL 13:03: [place] ORAL) Medical Branch citalopram Yes Take by Univ ers hydrobromid 8-02 mouth. ity of e 13:03: [place] (CITALOPRAM 04 Medical ORAL) Branch ALBUTEROL 0 Yes Univers INHALE 8- ity of 13:03: Medical Branch diphenhydrA Yes 25mg Take 25 mg Univers MINE 25 mg 02 by mouth ity o f capsule 13:03: every 6 [place] [address] (six) Medical hours as Branch needed for Allergies. carbamazepi Yes Take by Uni vers ne 8- mouth. ity of (TEGRETOL 13:03: [place] ORAL) Medical Branch citalopram Yes Take by [facility] ers hydrobromid 8- mouth. ity of e 13:03: [place] (CITALOPRAM 04 Medical ORAL) Branch ALBUTEROL 0 Yes Univers INHALE 12-12 ity of 13:03: [place] [address] Medical Branch diphenhydrA Yes 25mg Take 25 mg Univers MINE 25 mg 12-12 by mouth ity o f capsule 13:03: every 6 [place] [address] (six) Medical hours as Branch needed for Allergies. carbamazepi Yes Take by Uni vers ne 8- mouth. ity of (TEGRETOL 13:03: [place] ORAL) Medical Branch citalopram Yes Take by [facility] ers hydrobromid 8-02 mouth. ity of e 13:03: [place] (CITALOPRAM 04 Medical ORAL) Branch ALBUTEROL 0 Yes Univers INHALE 8 ity of 13:03: [place] [address] Medical Branch diphenhydrA 0 Yes 25mg Take 25 mg Univers MINE 25 mg 8-02 by mouth ity o f capsule 13:03: every 6 [place] [address] (six) Medical hours as Branch needed for Allergies. carbamazepi 0 Yes Take by Uni vers ne 8-02 mouth. ity of (TEGRETOL 13:03: [place] ORAL) Medical Branch citalopram Yes Take by [facility] ers hydrobromid 8-02 mouth. ity of e 13:03: [place] (CITALOPRAM 04 Medical ORAL) Branch ALBUTEROL Yes Univers INHALE 12-12 ity of 13:03: [place] 04 Medical Branch diphenhydrA Yes 25mg Take 25 mg Univers MINE 25 mg 12-12 by mouth ity o f capsule 13:03: every 6 [place] [address] (six) Medical hours as Branch needed for Allergies. carbamazepi Yes Take by Uni vers ne 8 mouth. ity of (TEGRETOL 13:03: [place] ORAL) Medical Branch citalopram Yes Take by [facility] ers hydrobromid - mouth. ity of e 13:03: [place] (CITALOPRAM 04 Medical ORAL) Branch ALBUTEROL Yes Univers INHALE 12-12 ity of 13:03: Medical Branch traZODone Yes [id number] 50mg Take 1 U nivers 50 mg 8-02 tablet by ity of tablet 00:00: mouth at [place] 00 bedtime. Medical Branch SERTraline Yes [id number] 50mg Take 1 Univers (ZOLOFT) 50 8-02 tablet by ity of mg tablet 00:00: [place] 00 the Medical morning. Branch traZODone Yes [id number] 50mg Take 1 U nivers 50 mg 8-02 tablet by ity of tablet 00:00: mouth at [place] 00 bedtime. Medical Branch SERTraline Yes [id number] 50mg Take 1 Univers (ZOLOFT) 50 8-02 tablet by ity of mg tablet 00:00: [place] 00 the Medical morning. Branch traZODone Yes [id number] 50mg Take 1 U nivers 50 mg 8-02 tablet by ity of tablet 00:00: mouth at [place] 00 bedtime. Medical Branch SERTraline Yes [id number] 50mg Take 1 Univers (ZOLOFT) 50 8-02 tablet by ity of mg tablet 00:00: [place] 00 the Medical morning. Branch traZODone 2022-0 Yes [id number] 50mg Take 1 U nivers 50 mg 8-02 tablet by ity of tablet 00:00: mouth at [place] 00 bedtime. Medical Branch SERTraline 2021-0 Yes [id number] 50mg Take 1 Univers (ZOLOFT) 50 8-02 tablet by ity of mg tablet 00:00: mouth in [place] 00 the Medical morning. Branch traZODone 2021-0 Yes [id number] 50mg Take 1 U nivers 50 mg 8-02 tablet by ity of tablet 00:00: mouth at [place] 00 bedtime. Medical Branch SERTraline 0 Yes [id number] 50mg Take 1 Univers (ZOLOFT) 50 8-02 tablet by ity of mg tablet 00:00: mouth in [facility] 00 the Medical morning. Branch traZODone 0 Yes [id number] 50mg Take 1 U nivers 50 mg 8-02 tablet by ity of tablet 00:00: mouth at [place] 00 bedtime. Medical Branch SERTraline 0 Yes [id number] 50mg Take 1 Univers (ZOLOFT) 50 8-02 tablet by ity of mg tablet 00:00: mouth in [facility] 00 the Medical morning. Branch sulfamethox 2021- No [id number] 1{tbl} Take 1 Univers azole-trime 8-02 08-06 tablet by it y of thoprim 00:00: 04:59 mouth in [place] (BACTRIM 00 :00 the Medical DS) 800-160 morning Branc h mg per and 1 tablet tablet in the evening. Do all this for 3 days. ibuprofen 2021-0 Yes [id number] 600mg Take 1 Univers 600 mg 7-15 tablet by ity of tablet 00:00: mouth [place] 00 every 6 Medical (six) Branch hours as needed for Pain (scale 4-6). ibuprofen 2021-0 Yes [id number] 600mg Take 1 Univers 600 mg 7-15 tablet by ity of tablet 00:00: mouth [place] [address] every 6 Medical (six) Branch hours as needed for Pain (scale 4-6). ibuprofen 2021-0 Yes [id number] 600mg Take 1 Univers 600 mg 7-15 tablet by ity of tablet 00:00: mouth [place] [address] every 6 Medical (six) Branch hours as needed for Pain (scale 4-6). ibuprofen 2021-0 Yes [id number] 600mg Take 1 Univers 600 mg 7-15 tablet by ity of tablet 00:00: mouth [place] 00 every 6 Medical (six) Branch hours as needed for Pain (scale 4-6). ibuprofen 2021-0 Yes [id number] 600mg Take 1 Univers 600 mg 7-15 tablet by ity of tablet 00:00: mouth [place] 00 every 6 Medical (six) Branch hours as needed for Pain (scale 4-6). ibuprofen 2021-0 Yes [id number] 600mg Take 1 Univers 600 mg 7-15 tablet by ity of tablet 00:00: mouth [place] 00 every 6 Medical (six) Branch hours as needed for Pain (scale 4-6). acetaminoph 2021-0 2021- No [id number] 1{tbl} Take 1 U nivers en-codeine 7-15 08-02 tablet by ity of 300-30 mg 00:00: 00:00 mouth [place] tablet 00 :00 every 4 Medical (four) Branch hours as needed for Pain (scale 4-6). Indication s: acute pain bromphenira 2021-0 Yes [id number] 5mL Take 5 mL Univers mine-pseudo 7-09 by mouth 4 it y of ephedrine-D 00:00: (four) [place] (BROMFED 00 times Medical DM) 2-30-10 daily as Bran ch mg/5 mL needed for syrup Congestion /Allergies or Cough. naproxen 2021-0 Yes [id number] 500mg Take 1 U nivers 500 mg 7-09 tablet by ity of tablet 00:00: mouth [place] 00 every 8 Medical (eight) Branch hours as needed for Pain (scale 4-6). cyclobenzap 2021-0 Yes [id number] 10mg Take 1 Univers rine 10 mg 7-09 tablet by ity of tablet 00:00: mouth at [place] 00 bedtime as Medical needed for Branch Muscle Spasms. bromphenira 2021-0 Yes [id number] 5mL Take 5 mL Univers mine-pseudo 7-09 by mouth 4 it y of ephedrine-D 00:00: (four) [place] (BROMFED 00 times Medical DM) 2-30-10 daily as Bran ch mg/5 mL needed for syrup Congestion /Allergies or Cough. naproxen 202-0 Yes [id number] 500mg Take 1 U nivers 500 mg 7-09 tablet by ity of tablet 00:00: mouth [place] 00 every 8 Medical (eight) Branch hours as needed for Pain (scale 4-6). cyclobenzap 2021-0 Yes [id number] 10mg Take 1 Univers rine 10 mg 7-09 tablet by ity of tablet 00:00: mouth at [place] 00 bedtime as Medical needed for Branch Muscle Spasms. bromphenira 2021-0 Yes [id number] 5mL Take 5 mL Univers mine-pseudo 7-09 by mouth 4 it y of ephedrine-D 00:00: (four) [place] (BROMFED 00 times Medical DM) 2-30-10 daily as Bran ch mg/5 mL needed for syrup Congestion /Allergies or Cough. naproxen 2021-0 Yes [id number] 500mg Take 1 U nivers 500 mg 7-09 tablet by ity of tablet 00:00: mouth [place] 00 every 8 Medical (eight) Branch hours as needed for Pain (scale 4-6). cyclobenzap 2021-0 Yes [id number] 10mg Take 1 Univers rine 10 mg 7-09 tablet by ity of tablet 00:00: mouth at [place] 00 bedtime as Medical needed for Branch Muscle Spasms. bromphenira 2021-0 Yes [id number] 5mL Take 5 mL Univers mine-pseudo 7-09 by mouth 4 it y of ephedrine-D 00:00: (four) [place] (BROMFED 00 times Medical DM) 2-30-10 daily as Bran ch mg/5 mL needed for syrup Congestion /Allergies or Cough. naproxen 2021-0 Yes [id number] 500mg Take 1 U nivers 500 mg 7-09 tablet by ity of tablet 00:00: mouth [place] 00 every 8 Medical (eight) Branch hours as needed for Pain (scale 4-6). cyclobenzap 2022-0 Yes [id number] 10mg Take 1 Univers rine 10 mg 7-09 tablet by ity of tablet 00:00: mouth at [place] 00 bedtime as Medical needed for Branch Muscle Spasms. bromphenira 2021-0 Yes [id number] 5mL Take 5 mL Univers mine-pseudo 7-09 by mouth 4 it y of ephedrine-D 00:00: (four) [place] M (BROMFED 00 times Medical DM) 2-30-10 daily as Bran ch mg/5 mL needed for syrup Congestion /Allergies or Cough. naproxen 2021-0 Yes [id number] 500mg Take 1 U nivers 500 mg 7-09 tablet by ity of tablet 00:00: mouth [place] 00 every 8 Medical (eight) Branch hours as needed for Pain (scale 4-6). cyclobenzap 2021-0 Yes [id number] 10mg Take 1 Univers rine 10 mg 7-09 tablet by ity of tablet 00:00: mouth at [place] 00 bedtime as Medical needed for Branch Muscle Spasms. bromphenira 2021-0 Yes [id number] 5mL Take 5 mL Univers mine-pseudo 7-09 by mouth 4 it y of ephedrine-D 00:00: (four) [place] M (BROMFED 00 times Medical DM) 2-30-10 daily as Bran ch mg/5 mL needed for syrup Congestion /Allergies or Cough. naproxen 2021-0 Yes [id number] 500mg Take 1 U nivers 500 mg 7-09 tablet by ity of tablet 00:00: mouth [place] 00 every 8 Medical (eight) Branch hours as needed for Pain (scale 4-6). cyclobenzap 2021-0 Yes [id number] 10mg Take 1 Univers rine 10 mg 7-09 tablet by ity of tablet 00:00: mouth at [place] 00 bedtime as Medical needed for Branch Muscle Spasms. ibuprofen 2021-0 Yes [id number] 605mg Take 30.25 Univers 100 mg/5 mL 6-15 mL by ity of oral 00:00: mouth [place] suspension 00 every 6 Medica l (six) Branch hours as needed for Pain (scale 4-6) or Temp > 38.5 C. ibuprofen 2021-0 Yes [id number] 605mg Take 30.25 Univers 100 mg/5 mL 6-15 mL by ity of oral 00:00: mouth [place] suspension 00 every 6 Medica l (six) Branch hours as needed for Pain (scale 4-6) or Temp > 38.5 C. ibuprofen 2021-0 Yes [id number] 605mg Take 30.25 Univers 100 mg/5 mL 6-15 mL by ity of oral 00:00: mouth [place] suspension 00 every 6 Medica l (six) Branch hours as needed for Pain (scale 4-6) or Temp > 38.5 C. ibuprofen 2-0 Yes [id number] 605mg Take 30.25 Univers 100 mg/5 mL 6-15 mL by ity of oral 00:00: mouth [place] suspension 00 every 6 Medica l (six) Branch hours as needed for Pain (scale 4-6) or Temp > 38.5 C. ibuprofen 2021-0 Yes [id number] 605mg Take 30.25 Univers 100 mg/5 mL 6-15 mL by ity of oral 00:00: mouth [place] suspension 00 every 6 Medica l (six) Branch hours as needed for Pain (scale 4-6) or Temp > 38.5 C. ibuprofen 2021-0 Yes [id number] 605mg Take 30.25 Univers 100 mg/5 mL 6-15 mL by ity of oral 00:00: mouth [place] suspension 00 every 6 Medica l (six) Branch hours as needed for Pain (scale 4-6) or Temp > 38.5 C. acetaminoph 2021-0 2021- No [id number] 608mg Take 19 mL Univers en 160 mg/5 6-15 - by mouth ity of mL liquid 00:00: [...] 60 mg 5-27 ity of capsule 00:00: [place] Medical Branch traZODone 2021-0 2022- No Univers 50 mg 5-27 08-02 ity of tablet 00:00: 00:00 [place] 00 :00 Medical Branch mometasone 2022-0 Yes [id number] 1{spray Use 1 Univers 50 5-19 } [place] in ity of mcg/actuati 00:00: each [place] on nasal 00 nostril 2 Medica l spray (two) Branch times daily. mometasone 2021-0 Yes [id number] 1{spray Use 1 Univers 50 5-19 } [place] in ity of mcg/actuati 00:00: each [place] on nasal 00 nostril 2 Medica l spray (two) Branch times daily. mometasone Yes [id number] 1{spray Use 1 Univers 50 5-19 } [place] in ity of mcg/actuati 00:00: each [place] on nasal 00 nostril 2 Medica l spray (two) Branch times daily. mometasone Yes [id number] 1{spray Use 1 Univers 50 5-19 } [place] in ity of mcg/actuati 00:00: each [place] on nasal 00 nostril 2 Medica l spray (two) Branch times daily. mometasone Yes [id number] 1{spray Use 1 Univers 50 5-19 } [place] in ity of mcg/actuati 00:00: each [place] on nasal 00 nostril 2 Medica l spray (two) Branch times daily. mometasone Yes [id number] 1{spray Use 1 Univers 50 5-19 } [place] in ity of mcg/actuati 00:00: each [place] on nasal 00 nostril 2 Medica l spray (two) Branch times daily. cetirizine Yes [id number] 10mg Take 1 U nivers (ZYRTEC) 10 5-16 tablet by ity of mg tablet 00:00: mouth [place] 00 daily. Medical Branch cetirizine 0 Yes [id number] 10mg Take 1 U nivers (ZYRTEC) 10 5-16 tablet by ity of mg tablet 00:00: mouth [place] 00 daily. Medical Branch cetirizine 0 Yes [id number] 10mg Take 1 U nivers (ZYRTEC) 10 5-16 tablet by ity of mg tablet 00:00: mouth 00 daily. Medical Branch cetirizine 0 Yes [id number] 10mg Take 1 U nivers (ZYRTEC) 10 5-16 tablet by ity of mg tablet 00:00: mouth 00 daily. Medical Branch cetirizine 2022-0 Yes [id number] 10mg Take 1 U nivers (ZYRTEC) 10 5-16 tablet by ity of mg tablet 00:00: mouth 00 daily. Medical Branch cetirizine 2022-0 Yes [id number] 10mg Take 1 U nivers (ZYRTEC) 10 5-16 tablet by ity of mg tablet 00:00: mouth 00 daily. Medical Branch DULoxetine 2022-0 Yes Univers 30 mg 5-09 ity of capsule 00:00: [place] 00 Medical Branch gabapentin 2022-0 Yes Univers 300 mg 5-09 ity of capsule 00:00: [place] 00 Medical Branch ondansetron 2022-0 Yes Univer s 4 mg tablet 5-09 ity of 00:00: [place] 00 Medical Branch DULoxetine 2022-0 Yes Univers 30 mg 5-09 ity of capsule 00:00: [place] 00 Medical Branch gabapentin 2022-0 Yes Univers 300 mg 5-09 ity of capsule 00:00: [place] 00 Medical Branch ondansetron 2022-0 Yes Univer s 4 mg tablet 5-09 ity of 00:00: [place] 00 Medical Branch DULoxetine 2022-0 Yes Univers 30 mg 5-09 ity of capsule 00:00: [place] 00 Medical Branch gabapentin 2022-0 Yes Univers 300 mg 5-09 ity of capsule 00:00: [place] 00 Medical Branch ondansetron 2022-0 Yes Univer s 4 mg tablet 5-09 ity of 00:00: [place] 00 Medical Branch DULoxetine 2022-0 Yes Univers 30 mg 5-09 ity of capsule 00:00: [place] 00 Medical Branch gabapentin 2022-0 Yes Univers 300 mg 5-09 ity of capsule 00:00: [place] 00 Medical Branch ondansetron 2022-0 Yes Univer s 4 mg tablet 5-09 ity of 00:00: [place] 00 Medical Branch DULoxetine 2022-0 Yes Univers 30 mg 5-09 ity of capsule 00:00: [place] 00 Medical Branch gabapentin 2022-0 Yes Univers 300 mg 5-09 ity of capsule 00:00: [place] 00 Medical Branch ondansetron 2022-0 Yes Univer s 4 mg tablet 5-09 ity of 00:00: Medical Branch DULoxetine 2021-0 Yes Univers 30 mg 09-18 ity of capsule 00:00: [place] Medical Branch gabapentin 2021-0 Yes Univers 300 mg 09-18 ity of capsule 00:00: [place] Medical Branch ondansetron 2021-0 Yes Univer s 4 mg tablet 09-18 ity of 00:00: [place] Medical Branch amLODIPine 2-0 Yes Univers 5 mg tablet - ity of 00:00: [place] [facility] Branch amLODIPine 2-0 Yes 5mg Take 5 mg Un sushant 5 mg tablet 4-22 by mouth. ity of 00:00: [place] [facility] Branch amLODIPine 2021-0 Yes Univers 5 mg tablet - ity of 00:00: [place] [facility] amLODIPine 2021-0 Yes 5mg Take 5 mg Un sushant 5 mg tablet -22 by mouth. ity of 00:00: [place] [facility] Branch amLODIPine 2-0 Yes Univers 5 mg tablet - ity of 00:00: [place] [facility] amLODIPine 2021-0 Yes 5mg Take 5 mg Un sushant 5 mg tablet -22 by mouth. ity of 00:00: [place] [facility] Branch amLODIPine 2-0 Yes Univers 5 mg tablet - ity of 00:00: [place] [facility] Branch amLODIPine 2021-0 Yes 5mg Take 5 mg Un sushant 5 mg tablet 4-22 by mouth. ity of 00:00: [place] [facility] Branch amLODIPine 2-0 Yes Univers 5 mg tablet - ity of 00:00: [place] Medical Branch amLODIPine 2-0 Yes 5mg Take 5 mg Un sushant 5 mg tablet 4-22 by mouth. ity of 00:00: [place] [facility] Branch amLODIPine 2-0 Yes Univers 5 mg tablet 4-22 ity of 00:00: [place] [facility] Branch amLODIPine 2-0 Yes 5mg Take 5 mg Un sushant 5 mg tablet 4-22 by mouth. ity of 00:00: [place] Medical Branch buPROPion 2021-0 Yes Univers XL 150 mg 4-20 ity of 24 hr 00:00: [place] tablet Medical Branch buPROPion 2021-0 Yes Univers XL 150 mg 4-20 ity of 24 hr 00:00: [place] tablet Medical Branch buPROPion Yes Univers XL 150 mg 4-20 ity of 24 hr 00:00: [place] tablet 00 Medical Branch buPROPion Yes Univers XL 150 mg 4-20 ity of 24 hr 00:00: [place] tablet 00 Medical Branch buPROPion Yes Univers XL 150 mg 4-20 ity of 24 hr 00:00: [place] tablet 00 Medical Branch buPROPion Yes Univers XL 150 mg 4-20 ity of 24 hr 00:00: [place] tablet 00 Medical Branch buPROPion 2022- No 150mg Take 150 Un sushant XL 150 mg 4-20 04-21 mg by ity of 24 hr 00:00: 04:59 mouth. [place] tablet 00 :00 [facility] Branch buPROPion 2022- No 150mg Take 150 Un sushant XL 150 mg 4-20 04-21 mg by ity of 24 hr 00:00: 04:59 mouth. [place] tablet 00 :00 [facility] Branch buPROPion 2022- No 150mg Take 150 Un sushant XL 150 mg 4-20 04-21 mg by ity of 24 hr 00:00: 04:59 mouth. [place] tablet 00 :00 [facility] Branch buPROPion 2022- No 150mg Take 150 Un sushant XL 150 mg 4-20 04-21 mg by ity of 24 hr 00:00: 04:59 mouth. [place] tablet 00 :00 [facility] Branch buPROPion 2022- No 150mg Take 150 Un sushant XL 150 mg 4-20 04-21 mg by ity of 24 hr 00:00: 04:59 mouth. [place] tablet 00 :00 [facility] Branch buPROPion 2022- No 150mg Take 150 Un sushant XL 150 mg 4-20 04-21 mg by ity of 24 hr 00:00: 04:59 mouth. [place] tablet 00 :00 [facility] Branch carvediloL 2020-05 Yes 25mg Take 1 Unive rs 25 mg 2-30 tablet by ity of tablet 00:00: mouth 2 (two) Medical times [place] daily with meals. losartan 50 2020-05 Yes [...] y of tablet 00:00: type mouth at [place] 00 bedtime. Medical Branch LOESTRIN FE Yes [...] Medical 20 mg QPM Branch methocarbam Yes [employer] of 500mg Take 1 Univers oL [...] area(s) [place] patch 00 every 24 Medical ([facility] ur) hours as needed for Localized pain. topiramate Yes 25mg Take 1 Unive rs 25 mg 1-05 tablet by ity of tablet 00:00: mouth 2 [place] 00 (two) Medical times Branch daily. Immunizations Ordered Filled Immunization Date Status Comments [facility] Immunization Name Name Influenza Virus 2021-06-11 Completed Universit y of Vaccine 00:00:00 [facility] Influenza Virus 2021-06-11 Completed Universit y of Vaccine 00:00:00 [facility] Influenza Virus 2021-06-11 Completed Universit y of Vaccine 00:00:00 [facility] Influenza Virus 2021-06-11 Completed Universit y of Vaccine 00:00:00 [facility] Influenza Virus 2021-06-11 Completed Universit y of Vaccine 00:00:00 [facility] Influenza Virus 2021-06-11 Completed Universit y of Vaccine 00:00:00 [facility] Influenza Virus 2020-05-19 Completed Universit y of Vaccine 00:00:00 [facility] Influenza Virus 2020-05-19 Completed Universit y of Vaccine 00:00:00 [facility] Influenza Virus 2020-05-19 Completed Universit y of Vaccine 00:00:00 [facility] Influenza Virus 2020-05-19 Completed Universit y of Vaccine 00:00:00 [facility] Influenza Virus 2020-05-19 Completed Universit y of Vaccine 00:00:00 [facility] Influenza Virus 2020-05-19 Completed Universit y of Vaccine 00:00:00 [facility] Influenza Virus 2020-05-19 Completed Universit y of Vaccine 00:00:00 [facility] Influenza Virus 2020-05-16 Completed Universit y of Vaccine Recomb Quad 00:00:00 [place] Medical IM, Preserv and ABX Branc h Free 18-64 YRS Influenza Virus 2020-05-16 Completed Universit y of Vaccine Recomb Quad 00:00:00 [place] Medical IM, Preserv and ABX Branc h Free 18-64 YRS Influenza Virus 2020-05-16 Completed Universit y of Vaccine Recomb Quad 00:00:00 [place] Medical IM, Preserv and ABX Branc h [...] (ADACEL) 2019-05-21 Completed University of VACCINE 00:00:00 [facility] TDAP (ADACEL) 2019-05-21 Completed University of VACCINE 00:00:00 [facility] TDAP (ADACEL) 2019-05-21 Completed University of VACCINE 00:00:00 [facility] TDAP (ADACEL) 2019-05-21 Completed University of VACCINE 00:00:00 [facility] TDAP (ADACEL) 2019-05-21 Completed University of VACCINE 00:00:00 [facility] TDAP (ADACEL) 2019-05-21 Completed University of VACCINE 00:00:00 [facility] TDAP (ADACEL) 2019-05-21 Completed University of VACCINE 00:00:00 [facility] Influenza Virus 2019-02-06 Completed Universit y of Vaccine Quad .5 mL 00:00:00 [place] [facility] IM 6+ MO Branch Influenza Virus 2019-02-06 Completed Universit y of Vaccine [place] .5 mL 00:00:00 [place] Medical IM 6+ MO Branch Influenza Virus 2019-02-06 Completed Universit y of Vaccine [place] .5 mL 00:00:00 [place] Medical IM 6+ MO Branch Influenza Virus 2019-02-06 Completed Universit y of Vaccine Quad .5 mL 00:00:00 [place] Medical IM 6+ MO Branch Influenza Virus 2019-02-06 Completed Universit y of Vaccine Quad .5 mL 00:00:00 [place] Medical IM 6+ MO Branch Influenza Virus 2019-02-06 Completed Universit y of Vaccine Quad .5 mL 00:00:00 [place] [facility] IM 6+ MO Branch Influenza Virus 2019-02-06 Completed Universit y of Vaccine Quad .5 mL 00:00:00 [facility] 6+ MO Branch Vital Signs Vital Name Observation Time Observation Value Comments Source Systolic blood 2022-02-05 14:31:00 128 mm[Hg] Univer sity of pressure [place] [facility] [place] Diastolic blood 2022-02-05 14:31:00 84 mm[Hg] Unive rsity of pressure [facility] Heart rate 2022-02-05 14:31:00 86 /min Universi ty of [place] [facility] [place] Body temperature 2022-02-05 14:31:00 37.89 Irene Univ ersity of [place] [facility] Respiratory rate 2022-02-05 14:31:00 18 /min Univ ersity of [place] [facility] Body height 2022-02-05 14:31:00 154.9 cm Universi ty of [place] [facility] [place] Body weight 2022-02-05 14:31:00 54.432 kg Universi ty of [place] [facility] [place] BMI 2022-02-05 14:31:00 22.67 kg/m2 Universi ty of [facility] Oxygen saturation in 2022-02-05 14:31:00 98 /min University of Arterial blood by [facility] Pulse oximetry Branch Systolic blood 2022-01-18 14:50:00 144 mm[Hg] Univer sity of pressure [place] [facility] [place] Diastolic blood 2022-01-18 14:50:00 92 mm[Hg] Unive rsity of pressure [place] [facility] [place] Heart rate 2022-01-18 14:50:00 94 /min Universi ty of [place] [facility] [place] Respiratory rate 2022-01-18 14:50:00 20 /min Univ ersity of [place] [facility] [place] Oxygen saturation in 2022-01-18 14:50:00 99 /min University of Arterial blood by [place] [facility] Pulse oximetry Branch Body weight 2022-01-18 10:18:00 54.432 kg Universi ty of [place] [facility] BMI 2022-01-18 10:18:00 22.67 kg/m2 Universi ty of [place] [facility] [place] Body temperature 2022-01-18 10:15:00 36.72 Irene Univ ersity of [place] [facility] [place] Systolic blood 2022-01-15 15:48:26 125 mm[Hg] Univer sity of pressure [place] [facility] Diastolic blood 2022-01-15 15:48:26 85 mm[Hg] Unive rsity of pressure [place] [facility] Heart rate 2022-01-15 15:48:26 95 /min Universi ty of [place] [facility] Respiratory rate 2022-01-15 15:48:26 18 /min Univ ersity of [place] [facility] Oxygen saturation in 2022-01-15 15:48:26 98 /min University of Arterial blood by [facility] yessi Pulse oximetry Branch Body temperature 2022-01-15 13:32:00 37.11 Irene Univ ersity of [place] [facility] Body height 2022-01-15 13:32:00 154.9 cm Universi ty of [place] [facility] Body weight 2022-01-15 13:32:00 54.432 kg Universi ty of [place] [facility] BMI 2022-01-15 13:32:00 22.67 kg/m2 [facility] Systolic blood 2022-01-09 00:37:11 127 mm[Hg] [facility] Diastolic blood 2022-01-09 00:37:11 90 mm[Hg] [facility] Heart rate 2022-01-09 00:37:11 94 /min [facility] Body temperature 2022-01-09 00:37:11 37.11 Irene [facility] Respiratory rate 2022-01-09 00:37:11 16 /min [facility] Oxygen saturation in 2022-01-09 00:37:11 97 /min [facility] of Arterial blood by [facility] Pulse oximetry Branch Body height 2022-01-08 23:03:00 154.9 cm [facility] Body weight 2022-01-08 23:03:00 58.06 kg [facility] BMI 2022-01-08 23:03:00 24.19 kg/m2 [facility] Systolic blood 2021-12-12 18:00:00 126 mm[Hg] [facility] Diastolic blood 2021-12-12 18:00:00 87 mm[Hg] [facility] Heart rate 2021-12-12 18:00:00 86 /min [facility] Body temperature 2021-12-12 18:00:00 36.89 Irene [facility] Respiratory rate 2021-12-12 18:00:00 18 /min [facility] Body height 2021-12-12 18:00:00 154.9 cm [facility] Body weight 2021-12-12 18:00:00 57.153 kg [facility] BMI 2021-12-12 18:00:00 23.81 kg/m2 [facility] Procedures Procedure Date / Time Performing Clinician Source Performed US GALL BLADDER 2022-01-18 12:31:09 Bernardo Levy [facility] US PELVIS COMPLETE WITH 2022-01-18 12:21:13 Melvin Zhao [facility] TRANSVAGINAL [facility] CT ABDOMEN PELVIS W 2022-01-18 11:20:50 Melvin Zhao [facility] CONTRAST [facility] POCT TEST 2022-01-18 10:57:00 Jayy Kennedy [facility] COVID-19 (ID NOW RAPID 2022-01-18 10:57:00 Jayy Kennedy [facility] TESTING) [facility] URINALYSIS 2022-01-18 10:47:00 Jayy Kennedy [facility] LIPASE 2022-01-18 10:29:00 Jayy Kennedy [facility] TEST, SERUM 2022-01-18 10:29:00 Jayy Kennedy [facility] HEPATIC FUNCTION PANEL 2022-01-18 10:29:00 Jayy Kennedy [facility] ([id number]) (ALB,T.PRO,BILI [facility] T,BU/BC,ALT,AST,ALK PHOS) BASIC METABOLIC PANEL 2022-01-18 10:29:00 Jayy Kennedy [facility] (NA, K, CL, CO2, Medical Branch GLUCOSE, BUN, CREATININE, CA) CBC WITH DIFF 2022-01-18 10:29:00 Jayy Kennedy [facility] CONSENT/REFUSAL FOR 2022-01-18 10:13:31 Doctor Unassigned, No Un [facility] DIAGNOSIS AND TREATMENT Name [facility] [place] [address] HEAD WO CONTRAST 2022-01-15 15:22:29 Maura Samayoa [facility] TEST, SERUM 2022-01-15 14:36:00 Danita [facility] BASIC METABOLIC PANEL 2022-01-15 14:36:00 Danita [facility] (NA, K, CL, CO2, [facility] Branch GLUCOSE, BUN, CREATININE, CA) CBC WITH DIFF 2022-01-15 14:36:00 Danita [facility] CONSENT/REFUSAL FOR 2022-01-15 13:28:12 Doctor Unassigned, [facility] Name [facility] XR CERVICAL SPINE 4 VW 2022-01-09 00:29:16 Gabriela [facility] XR LUMBAR SPINE 4 VW 2022-01-09 00:29:16 Gabriela [facility] XR SPINE THORACIC 3 VW 2022-01-09 00:29:16 Gabriela [facility] URINALYSIS 2022-01-08 23:50:[address] [facility] CONSENT/REFUSAL FOR 2022-01-08 22:51:08 Doctor Unassigned, No Un [facility] DIAGNOSIS AND TREATMENT Name [facility] GALV ONLY - VAGINAL 2021-12-12 18:37:00 Prasanna Vargas [facility] PATHOGENS BY [facility] ACID TESTING URINE CULTURE 2021-12-12 18:32:00 Alicia Prasanna [facility] o f [facility] POCT TEST 2021-12-12 18:31:00 Prasanna Vargas [facility] POCT URINALYSIS W/O 2021-12-12 18:31:00 [facility] SPECIFIC GRAVITY [facility] Plan of Care Planned Activity Planned Date Details Comments Source Future Scheduled 2029-05-21 DTaP,Tdap,and Td [facility] Test 00:00:00 Vaccines (2 - Td) Medical Br anch [code = DTaP,Tdap,and Td Vaccines (2 - Td)] Future Scheduled 2021-09-06 Depression screening [facility] Test 00:00:00 (procedure) [code = Medical Branch 344790132] Future Scheduled 2016-02-19 Screening for [facility] Test 00:00:00 malignant neoplasm Medical [facility] ranch of cervix (procedure) [code = 449019323] Future Scheduled 2013 Hepatitis C [facility] Test 00:00:00 screening Medical Branch (procedure) [code = 057566077] Future Scheduled 2011 SARS-CoV-2 [facility] Test 00:00:00 (COVID-19) Vaccine [facility] (1) [code = SARS-CoV-2 (COVID-19) Vaccine (1)] Future Scheduled 2006 HPV VACCINES (1 - Univer [facility] Test 00:00:00 2-dose series) [code Medical Branch = HPV VACCINES (1 - 2-dose series)] Encounters Start End Encounter Admission Attending Care Care Encounter Source Date/Time Date/Time Type Type Clinicians Facility Department ID 2021-03-14 Emergency [facility] [id number] Univers 03:14:31 ity of [facility] 2021-03-13 Emergency [facility] [id number] Univers 20:05:20 ity of [facility] 2021-03-13 Emergency [facility] [id number] Univers 12:48:28 ity of [facility] 2021-03-13 Emergency [facility] [id number] Univers 02:43:51 ity of [facility] 2021-03-13 Emergency [facility] [id number] Univers 00:27:09 ity of [facility] 2021-03-12 Emergency [facility] [id number] Univers 22:10:36 ity of [facility] 2021-03-12 Emergency [facility] [id number] Univers 20:04:05 ity of [facility] 2021-03-12 Emergency [facility] [id number] Univers 15:25:05 ity of [facility] 2021-03-12 Emergency [facility] [id number] Univers 11:43:36 ity of [facility] 2021-03-12 Emergency [facility] [id number] Univers 07:41:37 ity of [facility] 2021-03-12 Emergency [facility] [id number] Univers 05:43:47 ity of [facility] 2021-03-12 Emergency [facility] [id number] Univers 03:43:41 ity of [facility] 2021-03-12 Emergency [facility] [id number] Univers 01:31:27 ity of [facility] 2021-03-12 Emergency X [facility] ERT [id number] Univers 00:56:44 ity of [facility] 2021-03-12 Emergency [facility] [id number] Univers 00:56:31 ity of [facility] 2021-03-11 Emergency [facility] [id number] Univers 17:47:02 ity of [facility] 2021-03-11 Emergency [facility] [id number] Univers 16:27:15 ity of [facility] 2021-03-11 Emergency [facility] [id number] Univers 13:13:17 ity of [facility] 2021-03-11 Emergency [facility] [id number] Univers 12:16:27 ity of [facility] 2021-03-11 Emergency [facility] [id number] Univers 12:00:58 ity of [facility] 2021-03-11 Emergency [facility] [id number] Univers 10:33:59 ity of [facility] 2021-03-11 Emergency [facility] [id number] Univers 08:30:51 ity of [facility] 2021-03-11 Emergency [facility] [id number] Univers 01:36:52 ity of [facility] 2021-03-10 Emergency [facility] [id number] Univers 23:35:34 ity of [facility] 2021-03-10 Emergency [facility] [id number] Univers 19:06:16 ity of [facility] 2021-03-10 Emergency [facility] [id number] Univers 12:39:47 ity of [facility] 2021-03-10 Emergency [facility] [id number] Univers 06:54:04 ity of [facility] 2021-03-09 Outpatient P [facility] CHRIS [id number] Univers 13:25:44 ity of [facility] 2021-03-09 Outpatient P [facility] [id number] Univers 13:08:01 ity of [facility] 2021-03-09 Outpatient P [facility] CHRIS [id number] Univers 12:37:25 ity of [facility] 2021-03-09 Outpatient P [facility] CHRIS [id number] Univers 11:51:20 ity of [facility] 2022-02-06 2022-02-06 [facility] [id number] Univers 10:00:00 10:00:00 VIJAY ankush [facility] 2022-02-05 2022-02-05 Nurse Nurse, Filippo [facility] 1.2.840.114 [id number] Univers 09:45:00 10:05:00 Visit [facility] 350.1.13.10 ity of [place] 4.2.7.2.686 [place] as TOÑO?BLEA [id number] Ar dicaliyah EY [address] MEDICAL OFFICE BUILDING 2022-02-05 2022-02-05 [facility] [id number] Univers 09:45:00 09:45:00 [facility]22-[facility]-26 2022-01-26 Case Vargas Prasanna [facility] 1.2.104.117 [id number] Univers 00:00:00 00:00:00 Management Cam [place] 350.1.13.10 [place] [id number] Ar whit [facility] [address] BUILDING 2022-01-22 2022-01-22 Outpatient R [facility] [id number] Univers 11:00:00 11:00:00 VIJAY lechuga [facility] 2022-01-18 2022-01-18 Emergency X GARDENIA [facility] ERT [id number] Univers 05:17:00 10:25:00 BERNARDO ity [facility] 2022-01-18 2022-01-18 Emergency Jayy Kennedy W TRAUMA 1.2.840.11 [id number] Univers 05:17:00 10:25:00 Bernardo Levy J CENTER 350.1.13.10 [place] [id number] [address] 2022-01-15 2022-01-15 Emergency X DANITA [facility] ERT [id number] Univers 08:34:00 10:49:00 MAURA lechuga [facility] 2022-01-15 2022-01-15 Emergency Larry Perez [facility] 1.2.840.1 [id number] Univers 08:34:00 10:49:00 Maura Samayoa Christopher LAWSON 350.1.13.10 ity [facility] 4.2.7.2.686 [facility] [id number] [address] 2022-01-08 2022-01-08 Emergency X GABRIELA, [facility] ERT [id number] Univers 18:04:00 20:09:00 HUMBERTO [facility] 2022-01-08 2022-01-08 Emergency [facility] 1.2.840.114 [id number] Univers 18:04:00 20:09:00 Humberto LAWSON 350.1.13.10 i ty [facility] 4.2.7.2.686 [facility] [id number] [address] 2021-12-12 2021-12-12 Office VargasPrasanna Jm [facility] 1.2.840.114 [id number] Univers 13:30:00 13:40:21 Visit Teto Carnes 350.1.13.10 ity [facility] 4.2.7.2.686 [facility] PROFESSIO [id number] [address] 2021-12-12 2021-12-12 Outpatient Farzana CARNES [facility] [id number] Univers 13:30:00 13:40:21 TETO lechuga [facility] 2021-12-12 2021-12-12 Outpatient Farzana CARNES [facility] [id number] Univers 13:30:00 13:40:21 TETO lechuga [facility] 2021-12-12 2021-12-12 Outpatient Farzana CARNES [facility] [id number] Univers 13:30:00 13:30:00 TETO lechuga [facility] 2021-12-11 2021-12-11 Outpatient Farzana BRADFORD [facility] [id number] Univers 16:15:00 16:15:00 SANTIAGO [facility] 2021-12-05 2021-12-05 Outpatient R LYSSA, [facility] [id number] Univers 14:15:00 14:15:00 ROMULO [facility] 2021-11-28 2021-11-28 Emergency X OTONIEL, [facility] ERT [id number] Univers 08:49:00 11:02:00 KARON [facility] 2021-11-28 2021-11-28 Emergency [facility] 1.2.840.114 [id number] Univers 08:49:00 11:02:00 [facility] 350.1.13.10 i ty of [place] 4.2.7.2.686 [facility] [id number] [address] 2021-11-24 2021-11-24 Emergency X DEV, K [facility] ERT [id number] Univers 18:14:00 21:04:00 [facility] 2021-11-24 2021-11-24 Emergency Dev, Kaycee [facility] 1.2.840.114 [id number] Univers 18:14:00 21:04:00 Sharlene LAWSON 350.1.13.10 i ty of [place] 4.2.7.2.686 [facility] [id number] [address] 2021-11-24 2021-11-24 Telephone Brandon [facility] 1.2.840.114 [id number] Univers 00:00:00 00:00:00 Cricket Lopez [employer] 350.1.13.10 ity [facility] 4.2.7.2.686 [place] as MATERNAL [id number] Med ical & CHILD [address] [place] [address] 2021-11-20 2021-11-20 Patient Robb [facility] 1.2.840.114 [id number] Univers 00:00:00 00:00:00 Secure [facility] 350.1.13.10 ity of [place] 4.2.7.2.686 [place] TOÑO?BLEA [id number] Ar whit MINOREY [address] MEDICAL OFFICE BUILDING 2021-11-19 2021-11-19 JORDAN Ramirez 1.2.840.114 [id number] Univers 00:00:00 00:00:00 (Out) Leslie ARCE 350.1.13.10 it y of [facility] 4.2.7.2.686 [place] as [id number] [address] 2021-11-18 2021-11-18 Hospital [facility] 1.2.505.992 [id number] Univers 10:41:40 23:59:00 Encounter [facility] 350.1.13.10 ity of [place] 4.2.7.2.686 [place] TOÑO?BLEA [id number] Ar whit [place] [facility] 2021-11-18 2021-11-18 Outpatient R [facility] [id number] Univers 10:20:00 10:53:20 FLACO ankush o f [facility] 2021-11-18 2021-11-18 Urgent [facility] 1.2.840.114 [id number] Univers 10:20:00 10:53:20 Care [facility] 350.1.13.10 i ty of [place] 4.2.7.2.686 [place] TOÑO?BLEA [id number] [facility] 370 [facility] 2021-11-09 2021-11-09 Outpatient Farzana MIXON [facility] [id number] Univers 10:30:00 10:30:00 CELINA lechuga [facility] 2021-10-25 2021-10-25 Urgent Ileana Medrano [facility] .2.840.114 [id number] Univers 13:20:00 13:20:00 Care [facility] 350.1.13.10 ity of [place] 4.2.7.2.686 [place] TOÑO?BLEA [id number] Ar whit [address] 2021-10-25 2021-10-25 Outpatient Farzana MEDRANO [facility] [id number] Univers 13:20:00 12:47:59 ILEANA lechuga [facility] 2021-10-25 2021-10-25 Patient Juan [facility] 1.2.840.114 [id number] Univers 00:00:00 00:00:00 Secure Msg Vijay HEALTH 350.1.13.10 ity of [place] 4.2.7.2.686 [place] as TOÑO?BLEA [id number] [facility] [address] MEDICAL OFFICE [facility] 2021-10-25 2021-10-25 Telephone Juan [facility] 1.2.247.924 [id number] Univers 00:00:00 00:00:00 Vijay HEALTH 350.1.13.10 it y of [place] 4.2.7.2.686 [place] as TOÑO?BLEA [id number] [facility] 044 [facility] OFFICE [facility] 2021-10-25 2021-10-25 Telephone Provider, [facility] 1.2.840.114 [id number] Univers 00:00:00 00:00:00 Ang Db HEALTH 350.1.13.10 it y of Urgent Care [place] 4.2.7.2.686 [place] TOÑO?BLEA [id number] [facility] 370 [facility] OFFICE [facility] 2021-10-25 2021-10-25 Telephone Nurse, Filippo [facility] 1.2.840.114 [id number] Univers 00:00:00 00:00:00 Db Urgent HEALTH 350.1.13.10 ity of Care [place] 4.2.7.2.686 [place] as TOÑO?BLEA [id number] [facility] 370 [facility] OFFICE [facility] 2021-10-24 2021-10-24 Outpatient Farzana OMALLEY [facility] [id number] Univers 10:15:00 10:15:00 ROMULO lechuga [facility] 2021-10-24 2021-10-24 Outpatient Farzana OMALLEY [facility] [id number] Univers 10:15:00 10:15:00 ROMULO lechuga [facility] 2021-10-11 2021-10-11 Outpatient Farzana OMALLEY [facility] [id number] Univers 09:30:00 09:30:00 ROMULO lechuga [facility] 2021-10-10 2021-10-10 Outpatient PRASANNA LOOMIS [facility] [id number] Univers 13:30:00 13:30:00 ity of [facility] 2021-10-10 2021-10-10 Outpatient R PRASANNA VARGAS [facility] [id number] Univers 13:30:00 13:30:00 ity of [facility] 2021-10-10 2021-10-10 Outpatient R PRASANNA VARGAS [facility] [id number] Univers 13:30:00 13:30:00 ity of [facility] 2021-10-10 2021-10-10 Outpatient R ALICIA PRASANNA [facility] [id number] Univers 13:30:00 13:30:00 ity of [facility] 2021-10-10 2021-10-10 Out[facility] [id number] Univers 13:30:00 13:30:00 ity of [facility] 2021-10-10 2021-10-10 Outpatient R [facility] [id number] Univers 13:30:00 13:30:00 ity of [facility] 2021-10-10 2021-10-10 Outpatient R [facility] [id number] Univers 13:30:00 13:30:00 ity [facility] 2021-10-05 2021-10-05 Patient Robb PADAISY 1.2.840.114 [id number] Univers 00:00:00 00:00:00 Secure Msg Kendal Amaral [facility] 350.1.13.10 ity of [place] 4.2.7.2.686 [place] as TOÑO?BLEA [id number] [address] MEDICAL OFFICE [facility] 2021-10-05 2021-10-05 Patient Robb [facility] 1.2.840.114 [id number] Univers 00:00:00 00:00:00 Secure Msg Kendal Amaral [facility] 350.1.13.10 ity of [place] 4.2.7.2.686 [place] as TOÑO?BLEA [id number] [address] OFFICE [facility] 2021-10-04 2021-10-04 Pre Visit HILARIO Rodriguez 1.2.682.652 [id number] Univers 00:00:00 00:00:00 Outreach Melia DIMASY 350.1.13.10 [place] [id number] [facility] [address] 2021-09-28 2021-09-28 Office [facility] 1.2.840.114 [id number] Univers 13:30:00 13:45:00 Visit Celina Cannon FLACO 350.1.13.10 ity of [facility] 4.2.7.2.686 [place] [id number] [facility] [address] 2021-09-28 2021-09-28 [facility] [id number] Univers 13:30:00 13:30:00 CELINA [facility] 2021-09-28 2021-09-28 [facility] [id number] Univers 13:30:00 13:30:00 CELINA [facility] 2021-09-28 2021-09-28 Patient [facility] 1.2.840.114 [id number] Univers 00:00:00 00:00:00 Secure Msg Celina RAMIREZTANY 350.1.13.10 ity [facility] [place].2.[place] [id number] [address] 2021-09-27 2021-09-27 Outpatient R DEYVI [facility] [id number] Univers 14:00:00 14:00:00 TETO [facility] 2021-09-27 2021-09-27 Outpatient Farzana PENNINGTON [facility] [id number] Univers 09:30:00 09:30:00 [facility] 2021-09-27 2021-09-27 Outpatient R ADITI [facility] [id number] Univers 09:30:00 09:30:00 [facility] 2021-09-27 2021-09-27 Outpatient R ADITI [facility] [id number] Univers 09:30:00 09:30:00 [facility] 2021-09-26 2021-09-26 Outpatient R BRANDON [facility] [id number] Univers 10:45:00 10:45:00 CRICKET ity o susan [facility] 2021-09-26 2021-09-26 Outpatient R BRANDON, [facility] [id number] Univers 10:45:00 10:45:00 CRIKCET ity o f [facility] 2021-09-26 2021-09-26 Patient Juan [facility] 1.2.840.114 [id number] Univers 00:00:00 00:00:00 Secure [facility] 350.1.13.10 ity of [place] 4.2.7.2.686 [place] as TOÑO?BLEA [id number] [facility] [address] MEDICAL OFFICE [facility] 2021-09-26 2021-09-26 Patient Juan [facility] 1.2.840.114 [id number] Univers 00:00:00 00:00:00 Secure [facility] Vijay HEALTH 350.1.13.10 ity of [place] 4.2.7.2.686 [place] TOÑO?BLEA [id number] [facility] [address] MEDICAL OFFICE [facility] 2021-09-25 2021-09-25 Urgent Flaco Boyd [facility] 1.2.840. 114 [id number] Univers 10:20:00 11:10:42 Care [facility] 350.1.13.10 ity of [place] 4.2.7.2.686 [place] as TOÑO?BLEA [id number] [facility] [address] MEDICAL OFFICE [facility] 2021-09-25 2021-09-25 Outpatient R OLIVER [facility] [id number] Univers 10:20:00 11:10:42 FLACO fitzpatrick susan [facility] 2021-09-25 2021-09-25 Outpatient R OLIVER [facility] [id number] Univers 10:20:00 10:20:00 FLACO lechuga o f [facility] 2021-09-25 2021-09-25 Outpatient R PRASANNA VARGAS [facility] [id number] Univers 10:00:00 10:00:00 ity of [facility] 2021-09-25 2021-09-25 Telephone Oliver [facility] 1.2.840.114 [id number] Univers 00:00:00 00:00:00 Flaco HEALTH 350.1.13.10 i ty of [place] 4.2.7.2.686 [place] TOÑO?BLEA [id number] Ar dical KNEY [address] [facility] OFFICE [facility] 2021-09-25 2021-09-25 Patient Prasanna Vargas [facility] 1.2.857.908 [id number] Univers 00:00:00 00:00:00 Secure Msg Cam [place] 350.1.13.10 ity of [place] [id number] Ar dical NAL [address] [facility] 2021-09-25 2021-09-25 Tele[facility] 1.2.840.114 [id number] Univers 00:00:00 00:00:00 Cricket Lopez [employer] 350.1.13.10 ity of [facility] 4.2.7.2.686 [place] as MATERNAL [id number] Med ical & CHILD 107 [facility] 2021-09-25 2021-09-25 Telephone [facility] 1.2.550.325 [id number] Univers 00:00:00 00:00:00 Celinarobbie SAM 350.1.13.10 ity of [facility] 4.2.7.2.686 [place] [id number] [address] 2021-09-15 2021-09-15 Patient [facility] 1.2.840.114 [id number] Univers 00:00:00 00:00:00 Secure Msg Kendal Amaral HEALTH 350.1.13.10 ity of [place] 4.2.7.2.686 [place] as TOÑO?BLEA [id number] Ar dicaliyah [place] [facility] [facility] OFFICE [facility] 2021-09-15 2021-09-15 Patient Robb [facility] 1.2.840.114 [id number] Univers 00:00:00 00:00:00 Secure Msg Kendal Amaral HEALTH 350.1.13.10 ity of [place] 4.2.7.2.686 [place] as TOÑO?BLEA [id number] Ar whit [address] MEDICAL OFFICE [facility] 2021-09-15 2021-09-15 Patient Robb [facility] 1.2.840.114 [id number] Univers 00:00:00 00:00:00 Secure Msg Kendal Amaral HEALTH 350.1.13.10 ity of [facility] 4.2.7.2.686 [place] as TOÑO?BLEA [phone] Ar whit [address] OFFICE [facility] 2021-09-14 2021-09-14 Patient Juan [facility] 1.2.840.114 [id number] Univers 00:00:00 00:00:00 Secure Msg Vijay [facility] 350.1.13.10 ity of [place] 4.2.7.2.686 [place] as TOÑO?BLEA [id number] [address] OFFICE [facility] 2021-09-12 2021-09-12 Outpatient Farzana MIXON [facility] [id number] Univers 10:30:00 10:30:00 CELINA lechuga [facility] 2021-09-12 2021-09-12 Outpatient Farzana MIXON [facility] [id number] Univers 10:30:00 10:30:00 CELINA lechuga [facility] 2021-09-12 2021-09-12 Patient Meet [facility] 1.2.840.114 [id number] Univers 00:00:00 00:00:00 Secure Msg Daniel CRAIG 350.1.13.10 ity of [place].2.7.2.686 [place] [phone] [facility] AND [place] [address] [facility] 2021-09-12 2021-09-12 Orders Doctor ORTEGA 1.2.840.114 [id number] Univers 00:00:00 00:00:00 Only Unassigned, YAZMIN 350.1.13.10 [facility] 4.2.7.2.686 [place] as [phone] [facility] [address] 2021-09-12 2021-09-12 Patient Juan [facility] 1.2.840.114 [id number] Univers 00:00:00 00:00:00 Secure Msg Vijay HEALTH 350.1.13.10 ity of [place] 4.2.7.2.686 [place] as TOÑO?BLEA [phone] Ar dical MIKI [address] MEDICAL OFFICE [facility] 2021-09-05 2021-09-05 Patient Juan [facility] 1.2.840.114 [id number] Univers 00:00:00 00:00:00 Secure Msg Vijay HEALTH 350.1.13.10 ity of [place] 4.2.7.2.686 [place] as TOÑO?BLEA [phone] Ar dical IVÁNEY [address] MEDICAL OFFICE BUILDING 2021-09-04 2021-09-04 Patient Juan [facility] 1.2.840.114 [id number] Univers 00:00:00 00:00:00 Secure Msg Vijay HEALTH 350.1.13.10 ity of [place] 4.2.7.2.686 Martin as TOÑO?BLEA [phone] Ar dical MIKI [address] [facility] OFFICE [facility] 2021-08-25 2021-08-25 Telephone [facility] 1.2.840.114 [id number] Univers 00:00:00 00:00:00 Dania L HEALTH 350.1.13.10 it y of [place] 4.2.7.2.686 [place] as TOÑO?BLEA [phone] Ar dicaliyah [place] [address] [facility] OFFICE [facility] 2021-08-25 2021-08-25 [facility] 1.2.840.114 [id number] Univers 00:00:00 00:00:00 Secure Msg Vijay HEALTH 350.1.13.10 ity of [place] 4.2.7.2.686 [place] as TOÑO?BLEA [phone] Ar dical IVÁNEY [address] [facility] OFFICE [facility] 2021-08-24 2021-08-24 Telephone [facility] 1.2.958.049 [id number] Univers 00:00:00 00:00:00 Vijay HEALTH 350.1.13.10 it y of [place] 4.2.7.2.686 [place] as TOÑO?BLEA [phone] Ar dical IVÁNEY [address] [facility] OFFICE [facility] 2021-08-24 2021-08-24 Patient Juan [facility] 1.2.840.114 [id number] Univers 00:00:00 00:00:00 Secure Msg Vijay HEALTH 350.1.13.10 ity of [place] 4.2.7.2.686 [place] as TOÑO?BLEA [phone] Ar whit [place] [address] [place] [address] OFFICE [facility] 2021-08-23 2021-08-23 Patient Juan [facility] 1.2.840.114 [id number] Univers 00:00:00 00:00:00 Secure Msg Vijay HEALTH 350.1.13.10 ity of [place] 4.2.7.2.686 [place] as TOÑO?BLEA [phone] Ar whit [place] [address] [place] [address] OFFICE [facility] 2021-08-23 2021-08-23 Telephone Juan [facility] 1.2.063.421 [id number] Univers 00:00:00 00:00:00 Vijay HEALTH 350.1.13.10 it y of [place] 4.2.7.2.686 Martin as TOÑO?BLEA [phone] Ar whit [place] [address] [place] [address] OFFICE [facility] 2021-08-22 2021-08-22 Telephone Juan [facility] 1.2.045.215 [id number] Univers 00:00:00 00:00:00 Vijay HEALTH 350.1.13.10 it y of [place] 4.2.7.2.686 [place] as TOÑO?BLEA [phone] Ar whit [place] [address] [place] [address] OFFICE [facility] 2021-08-22 2021-08-22 Patient Jaja [facility] 1.2.840.114 [id number] Univers 00:00:00 00:00:00 Secure Msg Hallie HEALTH 350.1.13.10 ity of [place] 4.2.7.2.686 Martin as TÑOO?BLEA [phone] Ar whit [place] [address] [place] [address] OFFICE [facility] 2021-08-18 2021-08-18 Telephone Juan [facility] 1.2.295.255 [id number] Univers 00:00:00 00:00:00 Vijay HEALTH 350.1.13.10 it y of [place] 4.2.7.2.686 Martin as TOÑO?BLEA [id number] Ar whit [place] [address] MEDICAL OFFICE [facility] 2021-08-17 2021-08-17 Outpatient Farzana MIXON [facility] [id number] Univers 09:00:00 09:00:00 CELINA lechuga [facility] 2021-08-17 2021-08-17 Outpatient Farzana MIXON [facility] [id number] Univers 09:00:00 09:00:00 CELINA hirenchino [facility] 2021-08-16 2021-08-16 [facility] 1.2.840.114 [id number] Univers 00:00:00 00:00:00 Secure [facility] [employer] 350.1.13.10 ity of [place] 4.2.7.2.686 Martin as TOÑO?BLEA [phone] Ar whit [place] [address] [facility] OFFICE [facility] 2021-08-15 2021-08-15 Office [facility] 1.2.840.114 [id number] Univers 15:30:00 16:16:42 Visit [facility] 350.1.13.10 it y of [place] 4.2.7.2.686 [place] as TOÑO?BLEA [phone] Ar whit [place] [address] [facility] OFFICE [facility] 2021-08-15 2021-08-15 [facility] [id number] Univers 15:30:00 16:16:42 [facility] 2021-08-15 2021-08-15 [facility] [id number] Univers 15:30:00 15:30:00 [facility] 2021-08-15 2021-08-15 Outpatient Farzana KIM [facility] [id number] Univers 15:30:00 15:30:00 [facility] 2021-08-15 2021-08-15 [facility] [id number] Univers 15:30:00 15:30:00 [facility] 2021-08-15 2021-08-15 Emergency X DANITA, [facility] ERT [id number] Univers 09:27:00 12:26:00 MAURA lechuga [facility] 2021-08-15 2021-08-15 [facility] 1.2.798.322 [id number] Univers 09:27:00 12:26:00 Maura LAWSON 350.1.13.10 ity of [place] 4.2.7.2.686 [place] [facility] [phone] [place] [address] [place] 2021-08-15 2021-08-15 Emergency X DANITA [facility] ERT [id number] Univers 09:27:00 12:26:00 MAURA lechuga [facility] 2021-08-14 2021-08-14 Outpatient R VÍCTORKassandra [facility] [id number] Univers 13:25:00 23:59:00 VIJAY lechuga [facility] 2021-08-14 2021-08-14 Outpatient R VÍCTORKassandra [facility] [id number] Univers 13:25:00 13:25:00 VIJAY lechuga [facility] 2021-08-14 2021-08-14 Outpatient R JUAN [facility] [id number] Univers 12:19:07 13:24:00 VIJAY lechuga [facility] 2021-08-14 2021-08-14 Outpatient R JUAN [facility] [id number] Univers 12:19:07 13:24:00 VIJAY lechuga [facility] 2021-08-14 2021-08-14 Pick Remover Lab, Ang - Db [facility] 1.2.840.1 14 [id number] Univers 12:30:00 13:01:24 Visit Vijay Martinez 350.1.13.10 ity of [place] 4.2.7.2.686 Martin as TOÑO?BLEA [id number] [address] MEDICAL OFFICE [facility] 2021-08-14 2021-08-14 Pick Remover Lab, Ang - Db [facility] 1.2.840.1 14 [id number] Univers 12:30:00 12:45:00 Visit Vijay Martinez 350.1.13.10 ity of [place] 4.2.7.2.686 Martin as TOÑO?BLEA [phone] [address] MEDICAL OFFICE [facility] 2021-08-14 2021-08-14 [facility] [id number] Univers 11:30:00 12:31:12 VIJAY lechuga [facility] 2021-08-14 2021-08-14 [facility] 1.2.840.114 [id number] Univers 11:30:00 12:31:12 Visit Vijay [facility] 350.1.13.10 it y of [place] 4.2.7.2.686 [place] as TOÑO?BLEA [phone] [address] MEDICAL OFFICE [facility] 2021-08-14 2021-08-14 Outpatient R [facility] [id number] Univers 11:30:00 12:31:12 VIJAY lechuga [facility] 2021-08-14 2021-08-14 [facility] 1.2.840.114 [id number] Univers 00:00:00 00:00:00 Secure Msg Vijay [employer] 350.1.13.10 ity of [place] 4.2.7.2.686 [place] as TOÑO?BLEA [id number] [address] OFFICE [facility] 2021-08-09 2021-08-09 Outpatient R JUDY [facility] [id number] Univers 14:45:00 14:45:00 ADÁN itchino [facility] 2021-08-09 2021-08-09 Telephone [facility] 1.2.210.569 [id number] Univers 00:00:00 00:00:00 Vijay [facility] 350.1.13.10 it y of [place] 4.2.7.2.686 [place] as TOÑO?BLEA [phone] [address] MEDICAL OFFICE [facility] 2021-08-08 2021-08-08 [facility] [id number] Univers 11:30:00 23:59:00 VIJAY lechuga [facility] 2021-08-08 2021-08-08 Hospital [facility] 1.2.840.114 [id number] Univers 11:30:00 23:59:00 Encounter Vijay [employer] 350.1.13.10 ity of [place] 4.2.7.2.686 [place] as TOÑO?BLEA [phone] Ar whit [place] [address] [facility] OFFICE [facility] 2021-08-08 2021-08-08 Outpatient R VÍCTORKassandra [facility] [id number] Univers 11:00:00 11:00:00 VIJAY lechuga [facility] 2021-08-08 2021-08-08 Outpatient R VÍCTORKassandra [facility] [id number] Univers 11:00:00 11:00:00 VIJAY lechuga [facility] 2021-08-08 2021-08-08 Patient Doctor JORDAN 1.2.840.114 [id number] Univers 00:00:00 00:00:00 Secure Msg Unassigned, YAZMIN 350.1.13.10 ity of [facility] 4.2.7.2.686 [place] as [phone] [address] 2021-08-07 2021-08-07 Office [facility] 1.2.840.114 [id number] Univers 09:30:00 10:23:21 Visit [facility] 350.1.13.10 it y of [place] 4.2.7.2.686 Martin as TOÑO?BLEA [id number] Ar whit [place] [address] [facility] OFFICE [facility] 2021-08-07 2021-08-07 Outpatient R JUAN [facility] [id number] Univers 09:30:00 10:23:21 VIJAY lechuga [facility] 2021-08-07 2021-08-07 Outpatient R JUAN [facility] [id number] Univers 09:30:00 09:30:00 VIJAY lechuga [facility] 2021-08-07 2021-08-07 [facility] 1.2.840.114 [id number] Univers 00:00:00 00:00:00 Secure Msg Vijay [facility] 350.1.13.10 ity of [place] 4.2.7.2.686 Martin as TOÑO?BLEA [phone] Me whit [place] [address] [facility] OFFICE [facility] 2021-08-07 2021-08-07 Patient [facility] 1.2.840.114 [id number] Univers 00:00:00 00:00:00 Secure Msg Vijay HEALTH 350.1.13.10 ity of [place] 4.2.7.2.686 Martin as TOÑO?BLEA [phone] Ar whit [address] MEDICAL OFFICE BUILDING 2021-08-07 2021-08-07 Patient [facility] 1.2.840.114 [id number] Univers 00:00:00 00:00:00 Secure Msg Celina A FLACO 350.1.13.10 ity of [facility] 4.2.7.2.686 [place] [id number] [address] 2021-08-04 2021-08-04 Outpatient R SHADIA [facility] [id number] Univers 10:00:00 10:00:00 PETRA ity [facility] 2021-08-04 2021-08-04 Patient [facility] 1.2.840.114 [id number] Univers 00:00:00 00:00:00 Secure Msg Vijay HEALTH 350.1.13.10 ity of [place] 4.2.7.2.686 Martin as TOÑO?BLEA [phone] Ar alessandra[address] MEDICAL OFFICE [facility] 2021-08-03 2021-08-03 Office SOURAV Diaz 1.2.840.114 [id number] Univers 11:00:00 12:48:43 Visit Jayy Dowling 350.1.13.10 it y of [facility] 4.2.7.2.686 [place] as BANK [phone] [address] 2021-08-03 2021-08-03 Outpatient R EMILY [facility] [id number] Univers 11:00:00 12:48:43 JAYY lechuga [facility] 2021-08-03 2021-08-03 [facility] [id number] Univers 11:00:00 11:00:00 JAYY ankush [facility] 2021-08-03 2021-08-03 Patient [facility] 1.2.840.114 [id number] Univers 00:00:00 00:00:00 Secure Msg Celina A FLACO 350.1.13.10 ity of [facility] 4.2.7.2.686 [place] [id number] [address] 2021-08-02 2021-08-02 Telephone [facility] 1.2.870.978 [id number] Univers 00:00:00 00:00:00 Vijay HEALTH 350.1.13.10 it y of [place] 4.2.7.2.686 [place] as TOÑO?BLEA [phone] Ar whit [address] OFFICE [facility] 2021-07-21 2021-07-21 Outpatient R MARY WYATT [facility] [id number] Univers 08:00:00 08:52:53 MARY WYATT [facility] 2021-07-17 2021-07-17 Outpatient R JUAN [facility] [id number] Univers 11:30:00 11:30:00 [facility] 2021-06-19 2021-06-19 Telephone [facility] 1.2.384.332 [id number] Univers 00:00:00 00:00:00 Vijay [facility] 350.1.13.10 it y of [place] 4.2.7.2.686 [place] as TOÑO?BLEA [phone] Ar whit [address] 2021-06-09 2021-06-09 Telephone [facility] 1.2.202.148 [id number] Univers 00:00:00 00:00:00 Reji [facility] 350.1.13.10 ity of [place] 4.2.7.2.686 [place] [phone] Ar whit [facility] [address] [facility] 2021-06-06 2021-06-06 Outpatient Farzana CARNES [facility] [id number] Univers 11:15:00 11:15:00 TETO lechuga [facility] 2021-06-06 2021-06-06 Outpatient Farzana CARNES [facility] [id number] Univers 11:15:00 11:15:00 TETO lechuga [facility] 2021-06-02 2021-06-02 Outpatient R CRISTINA [facility] [id number] Univers 15:45:00 15:45:00 WONDIFUL ity o f [facility] 2021-05-31 2021-05-31 Outpatient R JUAN [facility] [id number] Univers 10:00:00 10:46:31 VIJAY lechuga [facility] 2021-05-31 2021-05-31 Office Juan [facility] 1.2.840.114 [id number] Univers 10:00:00 10:46:31 Visit Vijay HEALTH 350.1.13.10 it y of [place] 4.2.7.2.686 [place] as TOÑO?BLEA [id number] [address] OFFICE [facility] 2021-05-31 2021-05-31 Outpatient R JUAN [facility] [id number] Univers 10:00:00 10:46:31 VIJAY lechuga [facility] 2021-05-31 2021-05-31 Orders Doctor JORDAN 1.2.840.114 [id number] Univers 00:00:00 00:00:00 Only Unassigned, YAZMIN 350.1.13.10 ity of [place] [facility] 4.2.7.2.686 Martin as [phone] [address] 2021-05-26 2021-05-26 Telephone [facility] 1.2.054.955 [id number] Univers 00:00:00 00:00:00 Skylar A HEALTH 350.1.13.10 i ty of [place] 4.2.7.2.686 [place] as TOÑO?BLEA [id number] [address] OFFICE [facility] 2021-05-26 2021-05-26 Patient Prasanna Vargas [facility] 1.2.841.646 [id number] Univers 00:00:00 00:00:00 Secure Msg Cam [place] 350.1.13.10 ity of [place] 4.2.7.2.686 [place] [phone] [facility] [address] [facility] 2021-05-25 2021-05-25 Telemedici Yaneli [facility] 1.2.840.114 [id number] Univers 14:00:00 14:30:00 ne Visit Skylar Cannon [facility] 350.1.13.10 ity of [facility] 4.2.7.2.686 [place] as TOÑO?BLEA [phone] Ar dical KNEY [address] MEDICAL OFFICE [facility] 2021-05-25 2021-05-25 Out[facility] [id number] Univers 14:00:00 14:00:00 SKYLAR lechuga [facility] 2021-05-25 2021-05-25 Outpatient [facility] [id number] Univers 14:00:00 14:00:00 SKYLAR lechuga [facility] 2021-05-24 2021-05-24 Telephone [facility] 1.2.150.725 [id number] Univers 00:00:00 00:00:00 Rad LAWSON 350.1.13.10 ity of [facility] 4.2.7.2.686 [place] [phone] Ar dicaliyah TORRES 0[address] [facility] 2021-05-23 2021-05-23 Outpatient R [facility] [id number] Univers 10:00:00 10:00:00 ity [facility] 2021-05-23 2021-05-23 Outpatient R [facility] [id number] Univers 10:00:00 10:00:00 ity [facility] 2021-05-16 2021-05-16 Outpatient [facility] [id number] Univers 09:00:00 09:00:00 TETO ity [facility] 2021-05-12 2021-05-12 Orders Doctor ORTEGA 1.2.840.114 [id number] Univers 00:00:00 00:00:00 Only Unassigned, YAZMIN 350.1.13.10 ity of [place] [facility] 4.2.7.2.686 [place] as [id number] [address] 2021-05-10 2021-05-10 Outpatient [facility] [id number] Univers 13:00:00 13:00:00 WONDIFUL ity o f [facility] 2021-05-10 2021-05-10 Outpatient R [facility] [id number] Univers 13:00:00 13:00:00 WONDIFUL ity o f [facility] 2021-05-09 2021-05-09 Telephone Prasanna Vargas [facility] 1.2.840.114 [id number] Univers 00:00:00 00:00:00 Jm LAW[place] 350.1.13.10 i ty of [facility] 4.2.7.2.686 [place] [id number] Ar dical NAL 134 [facility] 2021-05-09 2021-05-09 Patient [facility] 1.2.840.114 [id number] Univers 00:00:00 00:00:00 Secure Msg Rad LAW[place] 350.1.13.10 ity of [place] 4.2.7.2.686 [place] [phone] Ar dical NAL 9 [facility] 2021-05-08 2021-05-08 Outpatient [facility] [id number] Univers 16:00:00 16:00:00 JE ity [facility] 2021-05-08 2021-05-08 Outpatient [facility] [id number] Univers 16:00:00 16:00:00 JE ity [facility] 2021-05-08 2021-05-08 Patient [facility] 1.2.840.114 [id number] Univers 00:00:00 00:00:00 Secure Msg Rad LAWSON 350.1.13.10 ity of [place] 4.2.7.2.686 [place] [phone] Ar dical NAL 9 [facility] 2021-05-08 2021-05-08 Patient [facility] 1.2.840.114 [id number] Univers 00:00:00 00:00:00 Secure Msg Sendzohra RauschHPilar [place] 350.1.13.10 ity of [facility] 4.2.7.2.686 [place] [id number] Ar dical NAL 059 [facility] 2021-05-03 2021-05-03 Outpatient R [facility]UNCLEVEL[facility] [id number] Univers 11:15:36 23:59:00 LAURENKIRSTIN ity o f [facility] 2021-05-03 2021-05-03 [facility] 1.2.840.114 [id number] Univers 11:15:36 23:59:00 Encounter Reji LAWSON 350.1.13.10 ity of [place] 4.2.7.2.686 [place] [phone] [facility] 846 [facility] 2021-05-03 2021-05-03 Telephone [facility] 1.2.840.114 [id number] Univers 00:00:00 00:00:00 Wondiful A HEALTH 350.1.13.10 ity of [place] 4.2.7.2.686 [place] as TOÑO?BLEA [phone] [address] OFFICE [facility] 2021-05-02 2021-05-02 Telephone [facility] 1.2.911.550 [id number] Univers 00:00:00 00:00:00 Rad [place] 350.1.13.10 ity of [place] 4.2.7.2.686 [place] [phone] [facility] NAL 059 [facility] 2021-05-02 2021-05-02 Patient [facility] 1.2.840.114 [id number] Univers 00:00:00 00:00:00 Secure Ms Wondiful A HEALTH 350.1.13.10 ity of [place] 4.2.7.2.686 [place] as TOÑO?BLEA [id number] [address] OFFICE [facility] 2021-05-02 2021-05-02 Telephone [facility] 1.2.840.114 [id number] Univers 00:00:00 00:00:00 Wondiful A HEALTH 350.1.13.10 ity of [place] 4.2.7.2.686 [place] as TOÑO?BLEA [id number] [address] OFFICE [facility] 2021-05-02 2021-05-02 Patient [facility] 1.2.840.114 [id number] Univers 00:00:00 00:00:00 Secure Msg Rad [place] 350.1.13.10 ity of [place] 4.2.7.2.686 [facility] [phone] Ar dical MELISSA [address] [facility] 2021-04-27 2021-04-27 Emergency X [facility] ERT [id number] Univers 14:24:00 15:49:00 MAGGIE ity [facility] 2021-04-27 2021-04-27 Emergency [facility] 1.2.840.114 [id number] Univers 14:24:00 15:49:00 Maggie LAWSON 350.1.13.10 ity of [place] 4.2.7.2.686 [facility] [place] [phone] [facility] [address] 2021-04-27 2021-04-27 Laboratory Only, Ang Db Test [facility] 1.2.8 40.114 [id number] Univers 11:15:00 11:30:00 Only Unknown, Attending HEALTH 350.1.13.10 ity of Thony Johnson 4.2.7.2.686 [facility]?BLEA [phone] Ar dicaliyah KNEY [address] MED[facility] 2021-04-27 2021-04-27 Outpatient R SIL [facility] [id number] Univers 11:15:00 11:15:00 [facility] 2021-04-27 Orders Doctor [place] 1.2.840.114 [id number] Univers 00:00:00 00:00:00 Only Unassigned, YAZMIN 350.1.13.10 ity of [place] [facility] 4.2.7.2.686 Martin [phone] [facility] [address] 2021-04-20 2021-04-20 Outpatient R JUSTINE [facility] [id number] Univers 15:00:00 15:00:00 SCOTT ity [facility] 2021-04-13 2021-04-13 Patient Cristina [facility] 1.2.840.114 [id number] Univers 00:00:00 00:00:00 Secure Msg Wondiful A HEALTH 350.1.13.10 [facility] 4.2.7.2.686 Martin as [place]?BLEA [phone] [facility] [address] [facility] OFFICE [facility] 2021-04-12 2021-04-12 Telephone Cristina [facility] 1.2.840.114 [id number] Univers 00:00:00 00:00:00 Wondiful A HEALTH 350.1.13.10 ity of [place] 4.2.7.2.686 [place] as [place]?BLEA [phone] [facility] [address] OFFICE [facility] 2021-03-27 2021-03-27 Telephone [place] [facility] 1.2.840.114 [id number] Univers 00:00:00 00:00:00 Cam [place] 350.1.13.10 i ty [place] 4[place]2.7.2.[place] [phone] Ar alessandra[address] 2021-03-23 2021-03-23 Outpatient R KAVYA [facility] [id number] Univers 13:30:00 13:30:00 CHILVANA ity o f [facility] 2021-03-23 2021-03-23 Outpatient R KAVYA [facility] [id number] Univers 13:30:00 13:30:00 CHILVANA ity o f [facility] 2021-03-22 2021-03-22 Outpatient R ADITYA MEEKS [facility] [id number] Univers 09:20:00 09:20:00 JAYCE MEEKSL ity [facility] 2021-03-22 2021-03-22 Outpatient R ADITYA MEEKS [facility] [id number] Univers 09:20:00 09:20:00 ADITYA MEEKS [facility] 2021-03-20 2021-03-20 [facility] [id number] Univers 00:00:00 00:00:00 WONDIFUL ity o f [facility] 2021-03-18 2021-03-18 [facility] 1.2.840.114 [id number] Univers 00:00:00 00:00:00 Management Wondiful A HEALTH 350.1.13.10 ity of [place] 4.2.7.2.686 Martin as TOÑO?BLEA [phone] [facility] [facility] OFFICE [facility] 2021-03-16 2021-03-16 Pick Remover Lab, Ang - Db [facility] 1.2.840.1 14 [id number] Univers 11:16:07 11:31:07 Visit Claudette Evans HEALTH 350.1.13.1 0 ity of [place] 4.2.7.2.686 [place] as TOÑO?BLEA [phone] [facility] [address] [facility] OFFICE [facility] 2021-03-16 2021-03-16 Outpatient R CRISTINA [facility] [id number] Univers 11:30:00 11:30:00 WONDIFUL ity o f [facility] 2021-03-16 2021-03-16 [facility] [id number] Univers 11:00:00 11:14:45 WONDIFUL ity o f [facility] 2021-03-16 2021-03-16 Office [facility] 1.2.840.114 [id number] Univers 10:00:58 11:14:45 Visit Wondiful A HEALTH 350.1.13.10 ity of [place] 4.2.7.2.686 [place] as TOÑO?BLEA [phone] [address] OFFICE [facility] 2021-03-16 2021-03-16 Patient [facility] 1.2.840.114 [id number] Univers 00:00:00 00:00:00 Secure Msg Wondiful A HEALTH 350.1.13.10 ity of [place] 4.2.7.2.686 [place] as TOÑO?BLEA [phone] [address] OFFICE [facility] 2021-03-02 2021-03-02 Outpatient R CRISTINA [facility] [id number] Univers 16:15:00 16:15:00 WONDIFUL ity o f [facility] 2021-02-28 2021-02-28 [facility] [id number] Univers 18:30:00 18:30:00 ILEANA lechuga [facility] 2021-02-28 2021-02-28 Telephone [facility] 1.2.840.114 [id number] Univers 00:00:00 00:00:00 Wondiful A Health 350.1.13.10 ity of [place] 4.2.7.2.686 [place] as Toño?Blea [phone] [facility] [address] [facility] 2021-02-27 2021-02-27 Out[facility] [id number] Univers 09:00:00 09:00:00 AMELIA lechuga [facility] 2021-02-23 2021-02-23 Telephone [facility] 1.2.840.114 [id number] Univers 00:00:00 00:00:00 Wondiful A Health 350.1.13.10 ity of [place] 4.2.7.2.686 [place] as Toño?Blea [phone] [facility] [address] [facility] 2021-02-10 2021-02-10 Emergency Kaycee Méndez [facility] 1.2.840.114 [id number] Univers 18:12:00 23:39:00 Sharlene [place] 350.1.13.10 i ty of [place].2.[place] [phone] [facility] [address] [place] 2021-02-09 2021-02-09 Hospital [facility] 1.2.023.719 [id number] Univers 13:40:00 23:59:00 Encounter Wondiful A Health 350.1.13.10 ity of [place] 4.2.7.2.686 [place] Toño?Blea [phone] [facility] miki [address] [facility] 2021-02-09 2021-02-09 Pick Remover Lab, Ang - Db [facility] 1.2.840.1 14 [id number] Univers 13:49:05 14:04:05 Visit GreenleeClaudette A Health 350.1.13.1 0 ity of [place] 4.2.7.2.686 [place] as Toño?Blea [phone] Ar whit [place] [address] [place] Medical Office [facility] 2021-02-09 2021-02-09 Office [facility] 1.2.840.114 [id number] Univers 12:23:13 13:47:12 Visit Wondiful A Health 350.1.13.10 ity of [place] 4.2.7.2.686 [place] as Toño?Blea [phone] Ar whit [place] [address] [place] [facility] 2021-02-09 2021-02-09 Outpatient R CRISTINA [facility] [id number] Univers 13:00:00 13:00:00 WONDIFUL ity o f [facility] 2021-02-08 2021-02-08 Outpatient R ADITYA MEEKS [facility] [id number] Univers 10:20:00 10:20:00 [facility] 2021-02-02 2021-02-02 Outpatient R YANELI [facility] [id number] Univers 10:30:00 10:30:00 [facility]02 2021-02-02 Telephone [facility] 1.2.840.114 [id number] Univers 00:00:00 00:00:00 Wondiful A Health 350.1.13.10 ity of [place] 4.2.7.2.686 [place] as Toño?Blea [phone] Ar whit [place] 044 [facility] Office [facility] 2021-02-01 2021-02-01 Out[facility] [id number] Univers 08:30:00 08:30:00 [facility] 2021-01-31 2021-01-31 Urgent Oliver [facility] 1.2.840.114 [id number] Univers 18:44:04 19:41:[address] [facility] 350.1.13.10 i ty of [place] 4.2.7.2.686 [place] Toño?Blea [id number] Ar whit [place] [address] [place] [facility] Office [facility] 2021-01-31 2021-01-31 Outpatient R OLIVER [facility] [id number] Univers 19:00:00 19:00:00 FLACO hirenchino o f [facility] 2021-01-31 2021-01-31 Telephone [facility] 1.2.840.114 [id number] Univers 00:00:00 00:00:00 Wondiful A Health 350.1.13.10 ity of [place] 4.2.7.2.686 [place] as Toño?Blea [id number] [facility] [address] [place] [facility] 2021-01-30 2021-01-30 Telephone [facility] 1.2.570.763 [id number] Univers 00:00:00 00:00:00 Sendil Cuate [place] 350.1.13.10 ity of [place].2.[place] [phone] [facility] 059 [facility] 2021-01-26 2021-01-26 Out[facility] [id number] Univers 14:00:00 14:00:00 SENDIL [facility] 2021-01-25 2021-01-25 Outpatient R [facility] [id number] Univers 15:00:00 15:00:00 [facility] 2021-01-20 2021-01-20 Telemedici [facility] 1.2.840.114 [id number] Univers 16:51:22 17:12:41 ne Visit Skylar A Health 350.1.13.10 ity of [place] 4.2.7.2.686 [place] as Toño?Blea [phone] [address] Office [facility] 2021-01-20 2021-01-20 Out[facility] [id number] Univers 16:30:00 16:30:00 [facility]YL[facility] 2021-01-19 2021-01-19 Outpatient [facility] [id number] Univers 10:15:00 10:15:00 KAYLEY [facility] 2021-01-14 2021-01-14 JORDAN Guzman 1.2.840.114 [id number] Univers 00:00:00 00:00:00 Management Kassandra ARCE 350.1.13.10 ity of [facility] 4.2.7.2.686 [place] as [id number] [facility] [address] 2021-01-12 2021-01-12 Emergency [facility] 1.2.319.052 [id number] Univers 16:10:00 19:45:00 Karin Lawson 350.1.13.10 i ty of [place] 4.2.7.2.686 [place] [id number] [facility] [address] [place] 2021-01-12 2021-01-12 Outpatient Farzana MEDRANO [facility] [id number] Univers 15:20:00 15:20:00 [facility] 2021-01-12 2021-01-12 Urgent Thony Johnson [facility] 1.2.840.114 [id number] Univers 14:46:57 15:06:57 [facility] 350.1.13.10 ity of [place] 4.2.7.2.686 [place] Toño?Blea [phone] [facility] [address] [facility] [address] Building 2020-12-26 2020-12-26 Outpatient R PONCE [facility] [id number] Univers 15:30:00 16:13:32 [facility] 2020-12-26 2020-12-26 Office [facility] 1.2.840.114 [id number] Univers 15:30:00 16:13:32 Visit Rad LAWSON 350.1.13.10 ity of [place].2.7.2.[place] [phone] Ar whit TORRES 059 [facility] 2020-12-26 2020-12-26 Office [facility] 1.2.840.114 [id number] Univers 15:00:32 16:13:32 Visit Rad Lawson 350.1.13.10 ity of [place] 4.2.7.2.[place] [phone] Ar dical nal [address] Building 2020-12-26 2020-12-26 Outpatient R SERRA, [facility] [id number] Univers 15:30:00 15:30:00 SENDIL ankush [facility] 2020-11-22 2020-11-22 Outpatient [facility] [id number] Univers 11:00:00 11:00:00 CELINA lechuga [facility] 2020-11-10 2020-11-10 Urgent Alissa Collins [facility] 1.2.840.114 [id number] 18:42:46 19:53:43 [facility] 350.1.13.10 [place] 4.2.7.2.686 Professio [phone] nal [address] 2020-11-10 2020-11-10 Outpatient R [facility] [id number] Univers 19:00:00 19:00:00 ity [facility] 2020-10-31 2020-10-31 Emergency Kaycee Méndez [facility] 1.2.840.114 [id number] 18:52:00 22:15:00 Sharlene Lawson 350.1.13.10 [place] 4.2.7.2.686 [place] [id number] 084 2020-10-31 2020-10-31 Outpatient R NATASHA [facility] [id number] Univers 19:00:00 19:00:00 BEBA ankush o f [facility] 2020-10-31 2020-10-31 Orders Doctor JORDAN 1.2.840.114 [id number] 00:00:00 00:00:00 Only Unassigned, YAZMIN 350.1.13.10 [facility] 4.2.7.2.686 [id number] 2020-10-20 2020-10-20 Emergency Kaycee Méndez [facility] 1.2.840.114 [id number] 14:02:00 17:13:00 Sharlene Lawson 350.1.13.10 [place] 4.2.7.2.686 [place] [id number] [id number] 2020-10-14 2020-10-14 [facility] Prasanna Vargas [facility] 1.2.840.114 [id number] 10:00:00 23:59:00 Encounter mJ Lawson 350.1.13.10 [place] 4.2.7.2.686 [place] [id number] [id number] 2020-10-14 2020-10-14 Outpatient Farzana MIXON [facility] [id number] Univers 13:30:00 13:30:00 CELINA [facility] 2020-10-09 2020-10-09 Emergency [facility] [id number] 12:00:00 15:57:00 Anna Jamarcus [place] 350.1.13.10 [place] 4.2.7.2.686 [place] [id number] 084 2020-10-06 2020-10-06 Office Prasanna Vargas [facility] 1.2.444.661 [id number] 08:53:00 09:46:44 Visit Jm Lawson 350.1.13.10 [place] 4.2.7.2.686 Professio [phone] nal 134 [facility] 2020-10-06 2020-10-06 Outpatient PRASANNA LOOMIS [facility] [id number] Univers 09:30:00 09:30:00 [facility] 2020-10-04 2020-10-04 Outpatient Farzana MIXON [facility] [id number] Univers 14:00:00 14:00:00 CELINA [facility] 2020-09-30 2020-09-30 Outpatient Farzana MIXON [facility] [id number] Univers 10:30:00 10:30:00 CELINA [facility] 2020-09-29 2020-09-29 Outpatient Farzana SHAY [facility] [id number] Univers 13:45:00 13:45:00 PREET chino [facility] 2020-09-06 2020-09-06 Outpatient PRASANNA LOOMIS [facility] [id number] Univers 15:30:00 15:30:00 [facility] 2020-09-02 2020-09-02 Outpatient MARY QUIROZ [facility] [id number] Univers 15:40:00 15:40:00 [facility] 2020-08-31 2020-08-31 Outpatient R PONCE [facility] [id number] Univers 10:30:00 10:30:00 SENDIL ity [facility] 2020-08-18 2020-08-18 Outpatient R PRASANNA VARGAS [facility] [id number] Univers 09:30:00 09:30:00 ity [facility] 2020-08-11 2020-08-11 Outpatient R PRASANNA VARGAS [facility] [id number] Univers 13:30:00 13:30:00 ity [facility] 2020-08-04 2020-08-04 Outpatient R JUSTINE [facility] [id number] Univers 14:00:00 14:00:00 SCOTT [facility] 2020-07-28 2020-07-28 Outpatient R PONCE [facility] [id number] Univers 10:30:00 10:30:00 [facility] 2020-06-30 2020-06-30 Outpatient Farzana EVANS [facility] [id number] Univers 16:15:00 16:15:00 WONDIFUL ity o f [facility] 2020-06-17 2020-06-17 Outpatient MARY QUIROZ [facility] [id number] Univers 15:00:00 15:00:00 [facility] 2020-06-16 2020-06-16 Outpatient Farzana SERRA [facility] [id number] Univers 15:30:00 15:30:00 SENDIL ity [facility] 2020-06-09 2020-06-09 Outpatient NI YUNG [facility] [id number] Univers 12:30:00 12:30:00 ity [facility] 2020-06-08 2020-06-08 Outpatient NI YUNG [facility] [id number] Univers 08:00:00 08:00:00 ity [facility] 2020-06-02 2020-06-02 Outpatient Farzana SERRA [facility] [id number] Univers 09:00:00 09:00:00 SENDIL ity [facility] 2020-05-28 2020-05-28 Outpatient R NATASHA [facility] [id number] Univers 10:00:00 10:00:00 BEBA ity o f [facility] 2020-05-24 2020-05-24 Outpatient R NI DISLA [facility] [id number] Univers 10:00:00 10:00:00 [facility] 2020-05-19 2020-05-19 Outpatient R CORETTAJACOBR [facility] [id number] Univers 16:30:00 16:30:00 [facility] 2020-05-17 2020-05-17 Outpatient R MARY WYATT [facility] [id number] Univers 13:00:00 13:00:00 MARY WYATT [facility] 2020-05-16 2020-05-16 Outpatient R CRISTINA [facility] [id number] Univers 16:00:00 16:00:00 WONDIFUL ity o f [facility] 2020-05-03 2020-05-03 Outpatient R CRISTINA [facility] [id number] Univers 15:00:00 15:00:00 WONDIFUL ity o f [facility] 2020-04-30 2020-04-30 Outpatient R JASPAL [facility] [id number] Univers 10:20:00 10:20:00 ROSALES [facility] 2020-04-30 2020-04-30 Outpatient R JASPAL [facility] [id number] Univers 10:15:00 10:15:00 ROSALES [facility] 2020-04-28 2020-04-28 Outpatient R CORETTAJACOBR [facility] [id number] Univers 14:00:00 14:00:00 ity [facility] 2020-04-25 2020-04-25 Outpatient R CRISTINA [facility] [id number] Univers 16:15:00 16:15:00 WONDIFUL ity o f [facility] 2020-04-18 2020-04-18 Outpatient R CORETTAJACOBR [facility] [id number] Univers 10:00:00 10:00:00 ity [facility] 2020-04-15 2020-04-15 Outpatient R PONCE [facility] [id number] Univers 10:30:00 10:30:00 SENDIL [facility] 2020-03-17 2020-03-17 Outpatient R DEYVI [facility] [id number] Univers 16:15:00 [facility]:15:[facility] 2020-03-04 2020-03-04 Refill Coretta [facility] 1.2.840.114 [id number] 00:00:00 00:00:00 MULTISPEC 350.1.13.10 [place]AL[place] 4.2.7.2.686 [place] [id number] [facility] 2020-02-25 2020-02-25 Outpatient R CORETTA OSITO [facility] [id number] Univers 16:00:00 16:00:00 [facility] 2020 Outpatient R DEYVI [facility] [id number] Univers 14:00:00 14:00:00 [facility] 2020-02-08 2020-02-08 Outpatient R PRASANNA VARGAS [facility] [id number] Univers 10:30:00 10:30:00 [facility] 2020-02-04 2020-02-04 Outpatient R CORETTA OSITO [facility] [id number] Univers 13:30:00 13:30:00 [facility] 2020-01-23 2020-01-23 Outpatient R [facility] [id number] Univers 10:15:00 10:15:00 [facility] 2020-01-21 2020-01-21 Outpatient R CORETTA OSITO [facility] [id number] Univers 13:00:00 13:00:00 [facility] 2020-01-14 2020-01-14 Outpatient R CORETTA OSITO [facility] [id number] Univers 16:00:00 16:00:00 [facility] 2020-01-05 2020-01-05 Outpatient R PRASANNA VARGAS [facility] [id number] Univers 13:45:00 13:45:00 [facility] 2019-12-03 2019-12-03 Outpatient R AKINSIPE, [facility] [id number] Univers 10:30:00 10:30:00 CRICKET ity o f [facility] 2019-11-27 2019-11-27 Outpatient R MANUELAPHAN, [facility] [id number] Univers 11:00:00 11:00:00 [facility] 2019-11-25 2019-11-25 Outpatient R VANAPHAN, [facility] [id number] Univers 08:00:00 08:00:00 [facility] 2019-11-18 2019-11-18 Outpatient R VANAPHAN, [facility] [id number] Univers 10:00:00 10:00:00 [facility] 2019-09-02 2019-09-02 Outpatient R AKINSIPE, [facility] [id number] Univers 11:00:00 11:00:00 CRICKET ity o f [facility] 2019-08-14 2019-08-14 Outpatient R VANAPHAN, [facility] [id number] Univers 10:15:00 10:15:00 [facility] 2019-08-13 2019-08-13 Outpatient R AKINSIPE, [facility] [id number] Univers 11:00:00 11:00:00 CRICKET ity o f [facility] 2019-08-12 2019-08-12 Outpatient R [facility] [id number] Univers 09:00:00 09:00:00 [facility] 2019-07-20 2019-07-20 Outpatient PRASANNA HERRERA [facility] CHRIS [id number] Univers 16:06:00 16:06:00 [facility] 2019-07-20 2019-07-20 Outpatient R AKINSIPE, [facility] [id number] Univers 08:15:00 08:15:00 CRICKET ity o f [facility] 2019-07-13 2019-07-13 Outpatient R AKINSIPE, [facility] [id number] Univers 08:00:00 08:00:00 CRICKET ity o f [facility] 2019-07-12 2019-07-12 Outpatient P PRASANNA VARGAS [facility] CHRIS [id number] Univers 13:39:00 13:39:00 [facility] 2019-07-06 2019-07-06 Outpatient R BRANDON, [facility] [id number] Univers 13:00:00 13:00:00 CRICKET lechuga o f [facility] 2019-06-13 2019-06-13 Emergency X MARGARITA [facility] ERT [id number] Univers 10:40:46 12:35:00 SARAHI [facility] 2019-05-13 2019-05-14 Outpatient P PRASANNA VARGAS [facility] CHRIS [id number] Univers 23:07:00 09:15:00 [facility] Results Test Description Test Time Test Comments Results Result Comments Source LIPASE 2022-01-18 12:45:21 Test Item Value Reference Range Interpretation Comme nts LIPASE (test code = 0142385709) 41 U/L 0-220 Lab Interpretation (test code = 17289-1) [id number] 10:57:00 Test Item Value Reference Range Interpretation Comments POCT PREG (test code = 1605) Negative On board controls acceptable with Present C Line (test code = 3574) POCT PREG LOT # (test code = 3575) [id number] POCT PREG TEST DATE (test 03/12/2023 code = 3576) Lab Interpretation (test code = Normal 90939-9) [facility] (NA, K, CL, CO2, GLUCOSE, BUN, CREATININE, CA)2022-01-18 10:56:51 Test Item Value Reference Range Interpretation Comments NA (test code = 137 mmol/L 135-145 5121620105) K (test code = 4.6 mmol/L 3.5-5 Slight 0440388510) hemolysis CL (test code = 108 mmol/L 98-108 5550276351) CO2 TOTAL (test code 22 mmol/L 23-31 L = 7286577852) AGAP (test code = 2-16 2663850313) BUN (test code = 11 mg/dL 7-23 Slight 9344836466) hemolysis GLUCOSE (test code = 83 mg/dL 70-110 9526230169) CREATININE (test code 0.68 mg/dL 0.5-1.04 = 0012868883) CALCIUM (test code = 8.8 mg/dL 8.6-10.6 5238373378) eGFR (test code = mL/min/1.73m2 5255028577) WESLEY (test code = WESLEY) Association of [...] tests). Lab Interpretation Abnormal (test code = 85008-9) [facility] (56829) (ALB,T.PRO,BILI T,BU/BC,ALT,AST,ALK PHOS)2022-01-18 10:56:51 Test Item Value Reference Range Interpretation Comments TOTAL BILI (test code = 2704484855) 0.6 mg/dL 0.1-1.1 BILI UNCON (test code = 5601697747) 0.1 mg/dL 0.1-1.1 BILI CONJ (test code = 9987908841) 0.0 mg/dL 0-0.3 T PROTEIN (test code = 3742046644) 8.6 g/dL 6.3-8.2 H ALBUMIN (test code = 3071854403) 5.1 g/dL 3.5-5 H ALK PHOS (test code = 7068214414) 79 U/L 34-122 ALTv (test code = 1742-6) 117 U/L 5-35 H AST(SGOT) (test code = 8276924855) 163 U/L 13-40 H Lab Interpretation (test code = Abnormal 09754-5) [facility]Y TEST, [id number] 10:54:25 Test Item Value Reference Range Interpretation Comments PREG SERUM (test code Negative = 1663153762) WESLEY (test code = WESLEY) Less than 10 IU/L. ?If low titer or ectopic is suspected, resubmit specimen in 48-72 hours. [facility] HospitalCB WITH [id number] 10:40:49 Test Item Value Reference Range Interpretation Comments WBC (test code = See_Comment [Automated 0717-2) message] The sy stem which generated this result transmitted reference range : 4.30 - 11.10 10*3/?L. The reference range was not used to interpret this result as normal/abnormal . RBC (test code = See_Comment [Automated 977-8) message] The sy stem which generated this [...] RDW-SD (test code = 45.3 fL 39-49.9 66853-3) RDW-CV (test code = 14.5 % 12-15.5 788-0) PLT (test code = See_Comment [Automated 285-3) message] The sy stem which generated this result transmitted reference range : 166 - 358 10*3/ ?L. The reference r david was not used to interpret this result as normal/abnormal . MPV (test code = 9.5 fL 9.5-12.9 94881-1) NRBC/100 WBC (test See_Comment [Automat ed code = 0563924797) message] The system which generated this result transmitted reference range : 0.0 - 10.0 /100 WBCs. The refer ence range was not u sed to interpret th is result as normal/abnormal . NRBC x10^3 (test code See_Comment [Auto mated = 4886210718) message] The s ystem which generated this result transmitted reference range : 10*3/?L. The reference range was not used to interpret this result as normal/abnormal . GRAN MAT (NEUT) % 47.6 % (test code = 770-8) IMM GRAN % (test code 0.60 % = 4508620867) LYMPH % (test code = 39.9 % 736-9) MONO % (test code = 5.9 % 5905-5) EOS % (test code = 5.3 % 713-8) BASO % (test code = 0.7 % 706-2) GRAN MAT x10^3(ANC) 4.45 10*3/uL 1.88-7.09 (test code = 3886967105) IMM GRAN x10^3 (test 0.06 10*3/uL 0-0.06 code = 4529572725) LYMPH x10^3 (test code 3.74 10*3/uL 1.32-3.29 H = 731-0) MONO x10^3 (test code 0.55 10*3/uL 0.33-0.92 = 742-7) EOS x10^3 (test code = 0.50 10*3/uL 0.03-0.39 H 711-2) BASO x10^3 (test code 0.07 10*3/uL 0.01-0.07 = 704-7) Lab Interpretation Abnormal (test code = 33979-5) [id number] Test Item Value Reference Range Interpretation Comments POCT PREG (test code = 1605) Negative On board controls acceptable with C Yes Line (test code = 3574) POCT PREG LOT # (test code = 3575) POCT PREG TEST DATE (test code = 3576) [facility] SPEC[facility] [id number] 18:31:00 Test Item Value Reference Range Interpretation Comments POCT PH U (test code = 3254) 5 mg/dl 5-8 POCT U LEUK EST (test code = Neg Negative - Negative 3) POCT U NIT (test code = 3262) Neg Negative - Negative POCT U PROT (test code = 3259) Trace Negative - Negative POCT U GLU (test code = 3256) Neg Negative - Negative POCT U KETONE (test code = 3258) Neg Negative - Negative POCT U BLD (test code = 3257) Trace Negative - Negative [facility]"
[2022-02-08 02:04] LABS: Urine Blood Trace-intact (Negative); Urine Glucose Negative (Negative); Urine Protein Trace (Negative); Urine Specific Gravity >=1.030 (1.005-1.030)
[2022-02-08] MEDS ORDERED: HYDROMORPHONE HCL 1 MG/ML INJ ONE ×2 (02:33→03:22)
[2022-02-08] MEDS ORDERED: PROMETHAZINE INJ 25 MG/ML AMP ONE ×2 (02:33→03:36)
[2022-02-08 02:45] LABS: Absolute Lymphocytes (CBC) 1.9 K/uL (0.7-4.9); Hematocrit 41.9 % (36.0-45.0); Lymphocytes % 33.1 % (15.3-44.8); MCV 86.3 fL (80-100); MPV 7.5 fL (7.6-11.3); RBC Red Blood Cell Count 4.86 M/uL (3.86-4.86)
[2022-02-08 03:01] LABS: Albumin 4.2 g/dL (3.4-5.0); Bilirubin Total 0.8 mg/dL (0.2-1.0); Potassium 3.4 mmol/L (3.5-5.1); Protein, Total 7.9 g/dL (6.4-8.2)
[2022-02-08 03:34] LABS: Calcium Oxalate Crystals- Ur Few /HPF (None Seen); Urine Bacteria 20-50 /HPF (<20); Urine Mucus 4+ /HPF (None Seen); Urine RBC 21-50 /HPF (None Seen)
--- NOTE | 2022-02-08 03:54 | EDPHYS ---
Physician Documentation [facility] Name: Natanael Dyson Age: 26 yrs Sex: Female : 1995 Arrival Date: 02/08/2022 Time: 01:34 Bed 6 Private MD: ED Physician Paula Mark HPI: 02/08 02:10 This 26 yrs old Female presents to ER via Ambulatory with complaints of Pain With sp3 Urination, Urinary Problem, Fever. 02:10 2 6-year-old female with a history of hypertension, migraines, prior kidney stone sp3 presents with chief complaint of bilateral flank pain and difficulty urinating. Patient denies headache, neck pain, chest pain, shortness of breath, fever, anterior abdominal pain, rash, extremity pain, syncope, travel history, known sick contacts, [employer] symptoms including vaginal bleeding and discharge, or any other ROS at this time.. Historical: - Allergies: 01:46 Compazine; kl 01:46 Reglan; kl - Home Meds: 01:46 Depakote Oral [Active]; Toradol Oral [Active]; kl - PMHx: 01:46 Hypertension; Migraine; kl - PSHx: 01:46 section; tubal ligation; kl - Immunization history:: Adult Immunizations not up to date. - Social history:: Smoking status: Patient denies any tobacco usage or history of. ROS: 02:12 Constitutional: Negative for fever, chills, and weight loss, Eyes: Negative for injury, sp3 pain, redness, and discharge, ENT: Negative for injury, pain, and discharge, Neck: Negative for injury, pain, and swelling, Cardiovascular: Negative for chest pain, palpitations, and edema, Respiratory: Negative for shortness of breath, cough, wheezing, and pleuritic chest pain, MS/Extremity: Negative for injury and deformity, Skin: Negative for injury, rash, and discoloration, Neuro: Negative for headache, weakness, numbness, tingling, and seizure, Psych: Negative for depression, anxiety, suicide ideation, homicidal ideation, and hallucinations, Allergy/Immunology: Negative for hives, rash, and allergies, Endocrine: Negative for neck swelling, polydipsia, polyuria, polyphagia, and marked weight changes, Hematologic/Lymphatic: Negative for swollen nodes, abnormal bleeding, and unusual bruising. 02:12 All other systems are negative. Exam: 02:12 Constitutional: This is a well developed, well nourished patient who is awake, alert, sp3 and in no acute distress. Head/Face: Normocephalic, atraumatic. Eyes: Pupils equal round and reactive to light, extra-ocular motions intact. Lids and lashes normal. Conjunctiva and sclera are non-icteric and not injected. Cornea within normal limits. Periorbital areas with no swelling, redness, or edema. ENT: Nares patent. No nasal discharge, no septal abnormalities noted. External auditory canals are clear. Oropharynx with no redness, swelling, or masses, exudates, or evidence of obstruction, uvula midline. Mucous membranes moist. Neck: Trachea midline, no thyromegaly or masses palpated, and no cervical lymphadenopathy. Supple, full range of motion without nuchal rigidity, or vertebral point tenderness. No Meningismus. Chest/axilla: Normal chest wall appearance and motion. Nontender with no deformity. No lesions are appreciated. Cardiovascular: Regular rate and rhythm with a normal S1 and S2. No gallops, murmurs, or rubs. Normal PMI, no JVD. No pulse deficits. Respiratory: Lungs have equal breath sounds bilaterally, clear to auscultation and percussion. No rales, rhonchi or wheezes noted. No increased work of breathing, no retractions or nasal flaring. Skin: Warm, dry with normal turgor. Normal color with no rashes, no lesions, and no evidence of cellulitis. MS/ Extremity: Pulses equal, no cyanosis. Neurovascular intact. Full, normal range of motion. Neuro: Awake and alert, GCS 15, oriented to person, place, time, and situation. Cranial nerves II-XII grossly intact. Motor strength 5/5 in all extremities. Sensory grossly intact. Cerebellar exam normal. Normal gait. Psych: Awake, alert, with orientation to person, place and time. Behavior, mood, and affect are within normal limits. 02:12 Abdomen/GI: Mild diffuse tenderness anteriorly in the abdomen without evidence of acute peritonitis, guarding, rebound. Bilateral flank pain noted. Patient is hunched over the stretcher and cannot get comfortable consistent with typical kidney stone pattern.. Vital Signs: 01:44 BP 133 / 89; Pulse 107; Resp 18; Temp 97.9(O); Pulse Ox 100% on R/A; Weight 56.7 kg kl (R); Height 5 ft. 1 in. (154.94 cm); Pain 10/10; 03:03 BP 125 / 92; Pulse 106; Resp 16; Pulse Ox 97% on R/A; jb4 03:41 BP 134 / 93; Pulse Ox 96% on R/A; kd3 03:53 BP 120 / 72; Pulse 108; Resp 19; Pulse Ox 100% on R/A; kd3 01:44 Body Mass Index 23.62 (56.70 kg, 154.94 cm) kl MDM: 02:10 Patient medically screened. sp3 02:13 Data reviewed: vital signs, nurses notes. ED course: 6-year-old female with bilateral sp3 flank pain consistent with kidney stone pattern. Differential diagnosis includes kidney stone, pyelonephritis, UTI, intestinal pathology, functional abdominal pain. I am not highly suspicious for vascular compromise including dissection and aneurysm, sepsis, mesenteric ischemia, bowel obstruction, [employer] pathology including ovarian cyst, torsion, PID, or any other critical findings at this time. Work-up will include CT scan of the abdomen pelvis noncontrast and kidney stone protocol, laboratory values, urine analysis, Dilaudid and Zofran for pain and nausea control. Disposition will be based on work-up and patient course with likely discharge home assuming kidney stone is less than 5 mm.. 03:51 ED course: CT scan demonstrates no kidney stones in the ureters or bladder. Multiple sp3 stones that exists in the kidneys. Laboratory values reviewed no critical findings or concerning findings noted. Due to patient's symptoms, we will put her on 3 days of Bactrim even though urine does not show definitive infection. Follow-up with PCP and/or urology as needed.. 02/08 02:04 Order name: Urine Dipstick-Ancillary EDMS 02/08 02:05 Order name: CBC with Diff sp3 02/08 02:05 Order name: CMP sp3 02/08 02:05 Order name: Lipase sp3 02/08 02:05 Order name: Urine Microscopic Only sp3 02/08 01:55 Order name: Urine Dipstick-Ancillary (obtain specimen); Complete Time: 02:06 sp3 02/08 01:55 Order name: Urine Test (obtain specimen); Complete Time: 02:06 sp3 02/08 02:05 Order name: CT Abd/Pelvis - Without Contrast sp3 02/08 02:05 Order name: IV Saline Lock; Complete Time: 02:30 sp3 02/08 02:05 Order name: Labs collected and sent; Complete Time: 02:30 sp3 Administered Medications: 02:30 Not Given (Patient Refused): Zofran (Ondansetron) 4 mg IVP once; over 2 minutes jb4 02:40 Drug: Phenergan (promethazine) 12.5 mg Route: IVP; Site: left forearm; jb4 03:25 Follow up: Response: No adverse reaction; Nausea is decreased kd3 02:45 Drug: Dilaudid (HYDROmorphone) 1 mg Route: IVP; Site: left forearm; jb4 03:25 Follow up: Response: No adverse reaction; Pain is decreased kd3 03:25 Drug: Dilaudid (HYDROmorphone) 1 mg Route: IVP; Site: left forearm; kd3 03:40 Drug: Phenergan (promethazine) 12.5 mg Route: IVP; Site: left forearm; kd3 Disposition Summary: 02/08/22 03:53 Discharge Ordered Location: Home sp3 Condition: Stable sp3 Diagnosis - Kidney Stone/ Calculus in bladder sp3 Followup: sp3 - With: Private Physician - When: Upon discharge from the Emergency Department - Reason: Recheck today's complaints Discharge Instructions: - Discharge Summary Sheet sp3 - Dietary Guidelines to Help Prevent Kidney Stones sp3 Forms: - Medication Reconciliation Form sp3 - Thank You Letter sp3 - Antibiotic Education sp3 - Prescription Opioid Use sp3 Prescriptions: - Diclofenac Sodium 75 mg Oral Tablet Sustained Release - take 1 tablet by ORAL route 2 times per day; 30 tablet; Refills: 0, Product sp3 Selection Permitted - Bactrim DS 800-160 mg Oral Tablet - take 1 tablet by ORAL route every 12 hours for 3 days; 6 tablet; Refills: 0, sp3 Product Selection Permitted Signatures: Dispatcher [employer] Cari Chang RN RN kl Bryson, James, RN RN jb4 Paula Mark MD MD sp3 Juany Santiago RN RN kd3
--- NOTE | 2022-02-08 03:54 | ER ---
Nurse's Notes [facility] Name: Natanael Dyson Age: 26 yrs Sex: Female : 1995 Arrival Date: 02/08/2022 Time: 01:34 Bed 6 Private MD: Diagnosis: Kidney Stone/ Calculus in bladder Presentation: 02/08 01:44 Chief complaint: Patient states: bilateral lower back pain , pain and difficulty kl urinating began 02/07/22. Coronavirus screen: Vaccine status: Patient reports being unvaccinated. Ebola Screen: Patient negative for fever greater than or equal to 101.5 degrees Fahrenheit, and additional compatible Ebola Virus Disease symptoms. Initial Sepsis Screen: Does the patient meet any 2 criteria? HR > 90 bpm. Does the patient have a suspected source of infection? Yes: Dysuria/Frequency/Urgency/UTI. Risk Assessment: Do you want to hurt yourself or someone else? Patient reports no desire to harm self or others. Onset of symptoms was February 07, 2022. 01:44 Method Of Arrival: Ambulatory 01:44 Acuity: THIERNO 3 kl Triage Assessment: 01:47 General: Appears distressed, uncomfortable, Behavior is cooperative. Pain: Complains of kl pain in suprapubic area Pain currently is 10 out of 10 on a pain scale. Historical: - Allergies: 01:46 Compazine; kl 01:46 Reglan; kl - Home Meds: 01:46 Depakote Oral [Active]; Toradol Oral [Active]; kl - PMHx: 01:46 Hypertension; Migraine; kl - PSHx: 01:46 section; tubal ligation; kl - Immunization history:: Adult Immunizations not up to date. - Social history:: Smoking status: Patient denies any tobacco usage or history of. Screenin:00 Abuse screen: Denies threats or abuse. Denies injuries from another. Nutritional ha1 screening: No deficits noted. Tuberculosis screening: No symptoms or risk factors identified. Fall Risk None identified. Assessment: 03:03 Reassessment: Patient appears in no apparent distress at this time. Patient and/or jb4 family updated on plan of care and expected duration. Pain level reassessed. Patient is alert, oriented x 3, equal unlabored respirations, skin warm/dry/pink. 03:58 Reassessment: Patient appears in no apparent distress at this time. Patient and/or jb4 family updated on plan of care and expected duration. Pain level reassessed. Patient is alert, oriented x 3, equal unlabored respirations, skin warm/dry/pink. Vital Signs: 01:44 BP 133 / 89; Pulse 107; Resp 18; Temp 97.9(O); Pulse Ox 100% on R/A; Weight 56.7 kg kl (R); Height 5 ft. 1 in. (154.94 cm); Pain 10/10; 03:03 BP 125 / 92; Pulse 106; Resp 16; Pulse Ox 97% on R/A; jb4 03:41 BP 134 / 93; Pulse Ox 96% on R/A; kd3 03:53 BP 120 / 72; Pulse 108; Resp 19; Pulse Ox 100% on R/A; kd3 01:44 Body Mass Index 23.62 (56.70 kg, 154.94 cm) ED Course: 01:34 Patient arrived in ED. ja2 01:46 Triage completed. kl 01:48 Patient has correct armband on for positive identification. Bed in low position. Call ha1 light in reach. Side rails up X 1. 01:48 Arm band placed on right wrist. ha1 01:49 Juany Santiago, RN is Primary Nurse. kd3 01:55 Paula Mark MD is Attending Physician. sp3 02:25 Initial lab(s) drawn, by me, sent to lab. Inserted saline lock: 22 gauge in left jb4 forearm, using aseptic technique. Blood collected. 02:25 Missed attempt(s): 18 gauge in right antecubital area. Bleeding controlled, band aid jb4 applied, catheter tip intact. Missed attempt(s): 22 gauge in right forearm. Bleeding controlled, band aid applied, catheter tip intact. 03:26 CT Abd/Pelvis - Without Contrast In Process Unspecified. EDMS 03:58 No provider procedures requiring assistance completed. IV discontinued, intact, jb4 bleeding controlled, No redness/swelling at site. Pressure dressing applied. Administered Medications: 02:30 Not Given (Patient Refused): Zofran (Ondansetron) 4 mg IVP once; over 2 minutes jb4 02:40 Drug: Phenergan (promethazine) 12.5 mg Route: IVP; Site: left forearm; jb4 03:25 Follow up: Response: No adverse reaction; Nausea is decreased kd3 02:45 Drug: Dilaudid (HYDROmorphone) 1 mg Route: IVP; Site: left forearm; jb4 03:25 Follow up: Response: No adverse reaction; Pain is decreased kd3 03:25 Drug: Dilaudid (HYDROmorphone) 1 mg Route: IVP; Site: left forearm; kd3 03:40 Drug: Phenergan (promethazine) 12.5 mg Route: IVP; Site: left forearm; kd3 Medication: 03:58 VIS not applicable for this client. jb4 Outcome: 03:53 Discharge ordered by . [email or web address] 03:58 Discharged to home ambulatory. jb4 03:58 Condition: stable 03:58 Discharge instructions given to patient, Instructed on discharge instructions, follow up and referral plans. medication usage, Demonstrated understanding of instructions, follow-up care, medications, Prescriptions given X 2. 04:00 Patient left the ED. jb4 Signatures: Dispatcher [employer] EDMS Cari Cotter RN Joss Jameson RN RN jb4 Paula Mark MD MD sp3 Kassandra Morris Kyli, RN RN kd3 Zainab Escamilla RN RN ha1
--- NOTE | 2022-02-08 13:42 | RAD REPORT ---
EXAM DESCRIPTION: CT - Abdomen Pelvis Wo Contrast - 02/08/2022 3:24 am CLINICAL HISTORY: 26 years, Female, flank pain COMPARISON: 01/21/2022 TECHNIQUE: Multiple transaxial tomograms of the abdomen and pelvis were performed from the lung base s to the symphysis pubis 5 mm slice thickness at 5 mm interval reconstruction, without administration of IV and oral contrast. Multiplanar reformats in the sagittal and coronal plane were generated and reviewed. This exam was performed according to our departmental dose-optimization protocol, which includes auto mated exposure control, adjustment of the mA and/or kV according to patient size and/or use of iterat bonifacio reconstruction technique. FINDINGS: The lack of IV and oral contrast limits evaluation of solid organs, subtle lesions cannot be excluded. The lung bases demonstrate to be clear. Grossly the unopacified liver, gallbladder, pancreas, spleen and adrenal glands demonstrate to be wit hin normal limits, no significant focal lesions were identified. The kidneys again demonstrated presence of bilateral nephrolithiasis. No evidence for significant hyd ronephrosis and/or hydroureter in either kidney. Grossly the unopacified stomach, small bowel and large bowel demonstrate to be within normal limits. There is no evidence for bowel dilatation/or free air. The appendix is unremarkable. The urinary bladder demonstrate to be within normal limits. The uterus demonstrate to be within jane l limits. No adnexal masses are identified. The aorta demonstrate to be within normal limits. There is no retroperitoneal lymphadenopathy. There is no evidence for ascites. The rest of the soft tiss ue demonstrate to be grossly unremarkable. IMPRESSION: Bilateral nephrolithiasis. No evidence for significant hydronephrosis and/or hydroureter in either kidney. No significant interval change in comparison with prior study. Electronically signed by: Carlos North MD 02/08/2022 3:42 AM CDT Due to temporary technical issues with the PACS/Fluency reporting system, reports are being signed by the in house radiologists without review as a courtesy to insure prompt reporting. The interpreting radiologist is fully responsible for the content of the report.
[2022-02-09 15:33] VITALS: TEMP 97.9
[2022-02-09 15:36] VITALS: BP 120/72; O2SAT 100
== END 2022-02-08 04:00 | disposition home or self-care (01) ==
LOC: ER 01:32
DX: N20.0 Calculus of kidney (principal); N21.0 Calculus in bladder; Z87.442 Personal history of urinary calculi; I10 Essential (primary) hypertension; Z88.8 Allergy status to other drugs, medicaments and biological substances
CPT/HCPCS: 85025; 36415; 83690; 80053; 74176; 96375; 96374; 99284; J2550 ×2; J1170 ×2; 81003; 81015

== ENCOUNTER 2022-02-09 00:31 | Emergency (ER) | payer OTHER ==
--- OUTSIDE RECORDS SUMMARY | 2022-02-09 00:40 | XMS REPORT | Continuity of Care Document ---
:1995 Author Organization [facility] t Address [address] [place] [address] Care Team Providers Name Role Phone Cristina FELIX, Claudette Cannon Primary Care Physician [phone] PRASANNA VARGAS Attending Clinician Unavailable CRICKET YANEZ Attending Clinician Unavailable VIJAY MARTINEZ Attending Clinician Unavailable Nurse, [facility] Attending Clinician Unavailable Ileana Medrano MD Attending Clinician ILEANA MEDRANO Attending Clinician Unavailable FLACO BOYD Attending Clinician Unavailable Prasanna Vargas MD Attending Clinician BERNARDO LEVY Attending Clinician Unavailable Jayy Kennedy MD Attending Clinician Bernardo Levy MD Attending Clinician MAURA SAMAYOA Attending Clinician Unavailable Larry Larry Attending Clinician Maura Samayoa MD Attending Clinician HUMBERTO OCHOA Attending Clinician Unavailable Humberto Ochoa MD Attending Clinician TETO CARNES Attending Clinician Unavailable Teto Carnes PA-C Attending Clinician SANTIAGO BRADFORD Attending Clinician Unavailable ROMULO OMALLEY Attending Clinician Unavailable KARON NORTON Attending Clinician Unavailable Karon Rosario Attending Clinician Kaycee MÉNDEZ Attending Clinician Unavailable Dev PAC, Kaycee Su Attending Clinician Akinsipe WHCNP, Cricket C Attending Clinician [phone] Robb KENNY, Kendal Amaral Attending Clinician Unavailable Noam CURRIE, Leslie Attending Clinician Unavailable Oliver SAP GATHERER, Flaco Attending Clinician CELINA MIXON Attending Clinician Unavailable Juan HENDRICKS, Vijay Attending Clinician Provider, [facility] Attending Clinician Unavailable Melia Rodriguez MA Attending Clinician Unavailable Celina Mixon MD Attending Clinician DANIA PENNINGTON Attending Clinician Unavailable Daniel Dsouza MD Attending Clinician Doctor Unassigned, [place] Attending Clinician Unavailable Dania Pennington MD Attending Clinician Hallie Wilkinson RN Attending Clinician Unavailable Judy PAC, Adán Jones Attending Clinician ADÁN KIM Attending Clinician Unavailable [...] Unavailable OSITO SANTIAGO Attending Clinician Unavailable ROSALES SHAY Attending Clinician Unavailable Coretta FELIX, Osito Attending Clinician SARAHI AVILA Attending Clinician Unavailable ROSANA HUBER Admitting Clinician Unavailable PRASANNA VARGAS Admitting Clinician Unavailable BERNARDO LEVY Admitting Clinician Unavailable MAURA SAMAYOA Admitting Clinician Unavailable HUMBERTO OCHOA Admitting Clinician Unavailable KARON NORTON Admitting Clinician Unavailable Kaycee MÉDNEZ Admitting Clinician Unavailable Payers Payer Name Policy Type Policy Number Effective Date Expiration Date [facility] [id number] 2019 MEDICAID 00:00:00 Problems Condition Condition Condition Status Onset Resolution Last Treating Co mments Source Name Details Category Date Date Treatment Clinician Date Breast Breast Disease Active Univers pain in pain in 12-17 ity of female female 00:00: [place] [facility] Anxiety Anxiety Disease Active Univers disorder, disorder, 12-17 ity of unspecif[place] d type [facility] Generalize Generalize Disease Active U nivers d anxiety d anxiety 4-20 ity of disorder disorder 00:00: [place] [facility] Nephrolith Nephrolith Disease Active U nivers iasis iasis 4-20 ity of 00:00: [place] [facility] Paresthesi Paresthesi Disease Active [place]ivers a [...] [place] and advice and advice 00 [facility] for for Branch contracept contracept [...] 00 Me dical born in born in [facility] hospital by by delivery delivery Normal Normal Disease Resolve 2019-08-13 2019-08-13 Univers labor labor d 3-10 00:00:00 16:34:03 ity of 00:00: [place] 00 Medical Branch 37 weeks 37 weeks Disease Resolve 2019-08-13 2019-08-13 Univers gestation gestation d 1-02 00:00:00 16:51:42 ity of of of 00:00: [place] 00 [facility] Gastroesop Gastroesop Disease Resolve 2019-2019-08-13 2019-08-13 Univers hageal hageal d 2-27 00:00:00 16:33:48 ity of reflux in reflux in 00:00: [place] 00 [facility] Supervisio Supervisio Disease Resolve 20192019-08-13 2019-08-13 Univers n of high n of high d 02-06 00:00:00 16:32:56 ity of risk risk 00:00: [place] 00 [facility] in third in third Branch trimester [...] , [place] antepartum antepartum 00 In dical Branch 39 weeks 39 weeks Disease [...] Std [place] Medical Drinks Branch History [facility] o f Alcohol Binge [place] Medic al Branch History SDIA University o f Alcohol Comment [place] Med ical Branch Exposure to 2022-01-26 2022-02-05 Not sure University SARS-CoV-2 00:00:00 09:14:00 [facility] [place] [facility] (event) Branch Alcohol intake 2022-02-05 2022-02-05 Ex-drinker University of 00:00:00 00:00:00 (finding) [facility] Tobacco use and 2021-12-12 2021-12-12 Smokeless tobacco Un iversity of exposure 00:00:00 00:00:00 non-user [place] [facility] History SDOH 2019-02-06 2019-02-06 1 University o f Alcohol Frequency 00:00:00 00:00:00 [facility] Sex Assigned At [birth year] Universit y of 00:00:00 00:00:00 [facility] Smoking Status Start Date Stop Date Source Never smoked tobacco [facility] Medications Ordered Filled Start Stop Current Ordering Indication Dosage Frequency Signature Comments Components Source Medication Medication Date Date Medication? Clinician (SIG) Name Name morpHINE (2 2022-0 2022- No 4mg 4 mg, Slow Univers mg/mL) 01-18 IV Push, ity of injection 4 15:15: 14:49 ONCE[place] 1 [place] mg 00 :00 dose, On Medical [facility] 01/18/22 Branch at 1015, STAT ondansetron 2021-0 2021- No 4mg 4 mg, Slow Univers (ZOFRAN 01-18 IV Push, ity of (PF)) 13:30: 13:33 ONCE, 1 [place] injection 4 00 :00 dose, On Medi yessi mg [facility] 01/18/22 Branch at 0830, [place] morpHINE (4 2021-0 2021- No 4mg 4 mg, Slow Univers mg/mL) 01-18 IV Push, ity of injection 4 13:30: 13:34 ONCE, 1 [place] mg 00 :00 dose, On [facility] 01/18/22 Branch at 0830, STAT morpHINE (4 2021-2021- No 4mg 4 mg, Slow Univers mg/mL) 01-18 IV Push, ity of injection 4 12:30: 11:39 ONCE, 1 [place] mg 00 :00 dose, On [facility] 01/18/22 Branch at 0730, STAT famotidine 2021-2021- No 20mg 20 mg, Univ ers (PEPCID 01-18 Slow IV ity of (PF)) 11:30: 10:52 Push, [place] injection 00 :00 ONCE, 1 Medical 20 mg dose, On Branch [facility] 01/18/22 at 0630, [place] ondansetron 2021-2021- No 4mg 4 mg, Slow Univers (ZOFRAN 01-18 IV Push, ity of (PF)) 11:30: 10:52 ONCE, 1 [place] injection 4 00 :00 dose, On Medi yessi mg [facility] 01/18/22 Branch at 0630, [place] iodixanoL 202-0 2021- No [id number] 80mL 80 mL, U nivers (VISIPAQUE 01-18 [...] Indication s: acute pain ondansetron 2021-0 Yes [id number] 4mg Take 1 Univers 4 mg - [id number] tablet by ity of disintegrat 00:00: mouth [place] ing tablet 00 every 8 Medica l (eight) Branch hours as needed for Nausea and Vomiting (N/V). ibuprofen 2021-0 Yes [id number] 600mg Take 1 Univers 600 mg 9- [id number] tablet by ity of tablet 00:00: mouth [place] 00 every 6 Medical (six) Branch hours as needed for Pain (scale 4-6). traMADoL 50 2021-0 Yes [id number] 50mg Take 1 Univ ers mg tablet 9-08 tablet by ity o f 00:00: mouth [place] 00 every 6 Medical (six) Branch hours as needed for Pain (scale 7-10). Indication s: acute pain ondansetron 2021-0 Yes [id number] 4mg Take 1 Univers 4 mg 9- [id number] tablet by ity of disintegrat 00:00: mouth [place] ing tablet 00 every 8 Medica l (eight) Branch hours as needed for Nausea and Vomiting (N/V). ibuprofen 2021-0 Yes [id number] 600mg Take 1 Univers 600 mg 9- [id number] tablet by ity of tablet 00:00: mouth [place] 00 every 6 Medical (six) Branch hours as needed for Pain (scale 4-6). traMADoL 50 Yes [id number] 50mg Take 1 Univ ers mg tablet 01-18 tablet by ity o f 00:00: mouth [place] 00 every 6 Medical (six) Branch hours as needed for Pain (scale 7-10). Indication s: acute pain ondansetron Yes [id number] 4mg Take 1 Univers 4 mg 01-18 [id number] tablet by ity of disintegrat 00:00: mouth [place] ing tablet 00 every 8 Medica l (eight) Branch hours as needed for Nausea and Vomiting (N/V). ibuprofen Yes [id number] 600mg Take 1 Univers 600 mg 01-18 [id number] tablet by ity of tablet 00:00: mouth [place] 00 every 6 Medical (six) Branch hours as needed for Pain (scale 4-6). predniSONE 2021- Yes [id number] 40mg Take 2 Univers 20 mg 01-16 tablets by ity of tablet 00:00: 04:59 mouth in [place] 00 :00 the Medical morning Branch for 7 days. predniSONE 2021- Yes [id number] 40mg Take 2 Univers 20 mg 01-16 tablets by ity of tablet 00:00: 04:59 mouth in [place] 00 :00 the [facility] morning Branch for 7 days. morpHINE (4 [...] at 0915, 1 mL proMETHazin 2021-0 Yes [id number] 25mg Take 1 Univers e 25 mg 9-05 tablet by ity of tablet 00:00: mouth [place] 00 every 6 Medical (six) Branch hours as needed for Nausea and Vomiting (N/V). proMETHazin 2021-0 Yes [id number] 25mg Take 1 Univers e 25 mg 9-05 tablet by ity of tablet 00:00: mouth [place] 00 every 6 Medical (six) Branch hours as needed for Nausea and Vomiting (N/V). proMETHazin 2-0 Yes [id number] 25mg Take 1 Univers e 25 mg 9-05 tablet by ity of tablet 00:00: mouth [place] 00 every 6 Medical (six) Branch hours as needed for Nausea and Vomiting (N/V). proMETHazin 2022-0 Yes [id number] 25mg Take 1 Univers e 25 mg [...] 1 Medical 25 mg dose, On Branch [facility] 01/08/22 at 1845, STAT dexamethaso 2021- No 10mg 10 mg, Uni vers ne sod phos 01-08 Slow IV ity of PF 23:45: 23:50 [place], [place] injection 00 :00 ONCE, 1 Medical 10 mg dose, On Branch Sat01/08/22 at 1845, 1 mL ketorolac 2021- No 30mg 30 mg, Unive rs (TORADOL) 01-08 Slow IV ity of injection 23:45: 23:51 Push, [place] 30 mg 00 :00 ONCE, 1 Medical dose, On Branch 01/08/22 at 1845, [place] acetaminoph 0 Yes [id number] 650mg Take 1 Univers en (TYLENOL 8-29 tablet by ity of ARTHRITIS 00:00: mouth [place] PAIN) 650 00 every 8 Medical mg CR (eight) Branch tablet hours as needed for Pain. ketorolac 2021-0 Yes [id number] 10mg Take 1 U nivers 10 mg 8-29 tablet by ity of tablet 00:00: mouth [place] 00 every 6 Medical (six) Branch hours as needed for Pain (scale 4-6) or Pain (scale 7-10). metaxalone 2021-0 Yes [id number] 800mg Take 1 Univers (SKELAXIN) 8-29 tablet by ity of 800 mg 00:00: mouth in [place] tablet 00 the Medical morning Branch and 1 tablet at noon and 1 tablet in the evening. ondansetron 2-0 Yes [id number] 4mg Take 1 Univers 4 mg 8-29 tablet by ity of disintegrat 00:00: mouth [place] ing tablet 00 every 8 Medica l (eight) Branch hours as needed for Nausea and Vomiting (N/V). acetaminoph 2022-0 Yes [id number] 650mg Take 1 Univers en (TYLENOL 8-29 tablet by ity of ARTHRITIS 00:00: mouth [place] PAIN) 650 00 every 8 Medical mg CR (eight) Branch tablet hours as needed for Pain. ketorolac 2022-0 Yes [id number] 10mg Take 1 U nivers 10 mg 8-29 tablet by ity of tablet 00:00: mouth [place] 00 every 6 Medical (six) Branch hours as needed for Pain (scale 4-6) or Pain (scale 7-10). metaxalone 2022-0 Yes [id number] 800mg Take 1 Univers (SKELAXIN) 8-29 tablet by ity of 800 mg 00:00: mouth in [place] tablet 00 the Medical morning Branch and 1 tablet at noon and 1 tablet in the evening. ondansetron 2-0 Yes [id number] 4mg Take 1 Univers 4 mg 8-29 tablet by ity of disintegrat 00:00: mouth [place] ing tablet 00 every 8 Medica l (eight) Branch hours as needed for Nausea and Vomiting (N/V). acetaminoph 2-0 Yes [id number] 650mg Take 1 Univers en (TYLENOL 8-29 tablet by ity of ARTHRITIS 00:00: mouth [place] PAIN) 650 00 every 8 Medical mg CR (eight) Branch tablet hours as needed for Pain. ketorolac 2022-0 Yes [id number] 10mg Take 1 U nivers 10 mg 8-29 tablet by ity of tablet 00:00: mouth [place] 00 every 6 Medical (six) Branch hours as needed for Pain (scale 4-6) or Pain (scale 7-10). metaxalone 2022-0 Yes [id number] 800mg Take 1 Univers (SKELAXIN) 8-29 tablet by ity of 800 mg 00:00: mouth in [place] tablet 00 the Medical morning Branch and 1 tablet at noon and 1 tablet in the evening. ondansetron 2022-0 Yes [id number] 4mg Take 1 Univers 4 mg 8-29 tablet by ity of disintegrat 00:00: mouth [place] ing tablet 00 every 8 Medica l (eight) Branch hours as needed for Nausea and Vomiting (N/V). acetaminoph 2022-0 Yes [id number] 650mg Take 1 Univers en (TYLENOL 8-29 tablet by ity of ARTHRITIS 00:00: mouth [place] PAIN) 650 00 every 8 Medical mg CR (eight) Branch tablet hours as needed for Pain. ketorolac 2022-0 Yes [id number] 10mg Take 1 U nivers 10 mg 8-29 tablet by ity of tablet 00:00: mouth [place] 00 every 6 Medical (six) Branch hours as needed for Pain (scale 4-6) or Pain (scale 7-10). metaxalone 2022-0 Yes [id number] 800mg Take 1 Univers (SKELAXIN) 8-29 tablet by ity of 800 mg 00:00: mouth in [place] tablet 00 the Medical morning Branch and 1 tablet at noon and 1 tablet in the evening. ondansetron 2-0 Yes [id number] 4mg Take 1 Univers 4 mg 8-29 tablet by ity of disintegrat 00:00: mouth [place] ing tablet 00 every 8 Medica l (eight) Branch hours as needed for Nausea and Vomiting (N/V). acetaminoph 2-0 Yes [id number] 650mg Take 1 Univers en (TYLENOL 8-29 tablet by ity of ARTHRITIS 00:00: mouth [place] PAIN) 650 00 every 8 Medical mg CR (eight) Branch tablet hours as needed for Pain. ketorolac 2022-0 Yes [id number] 10mg Take 1 U nivers 10 mg 8-29 tablet by ity of tablet 00:00: mouth [place] 00 every 6 Medical (six) Branch hours as needed for Pain (scale 4-6) or Pain (scale 7-10). metaxalone 2022-0 Yes [id number] 800mg Take 1 Univers (SKELAXIN) 8-29 tablet by ity of 800 mg 00:00: mouth in [place] tablet 00 the Medical morning Branch and 1 tablet at noon and 1 tablet in the evening. ondansetron 2022-0 Yes [id number] 4mg Take 1 Univers 4 mg 8-29 tablet by ity of disintegrat 00:00: mouth [place] ing tablet 00 every 8 Medica l (eight) Branch hours as needed for Nausea and Vomiting (N/V). metroNIDAZO 2-0 Yes 500mg Take 1 Uni [...] [place] (CITALOPRAM 04 Medical ORAL) Branch ALBUTEROL 2021-0 Yes Univers INHALE 12-12 ity of 13:03: [place] 04 Medical Branch diphenhydrA 2021-0 Yes 25mg Take 25 mg Univers MINE 25 mg 8-02 by mouth ity o f capsule 13:03: every 6 [place] [address] (six) Medical hours as Branch needed for [...] ity o f capsule 13:03: every 6 [place] [address] (six) Medical hours as Branch needed for Allergies. carbamazepi Yes Take by Uni vers ne 8- mouth. ity of (TEGRETOL 13:03: [place] ORAL) Medical Branch citalopram Yes Take by [facility] ers hydrobromid 8- mouth. ity of e 13:03: [place] (CITALOPRAM 04 Medical ORAL) Branch ALBUTEROL 0 Yes Univers INHALE 12-12 ity of 13:03: [place] [address] Medical Branch diphenhydrA Yes 25mg Take 25 mg Univers MINE 25 mg 12-12 by mouth ity o f capsule 13:03: every 6 [place] [address] (six) Medical hours as Branch needed for Allergies. carbamazepi Yes Take by Uni vers ne 8- mouth. ity of (TEGRETOL 13:03: [place] ORAL) Medical Branch citalopram Yes Take by [facility] ers hydrobromid 8-02 mouth. ity of e 13:03: [place] (CITALOPRAM 04 Medical ORAL) Branch ALBUTEROL 0 Yes Univers INHALE 8 ity of 13:03: [place] [address] Medical Branch diphenhydrA 0 Yes 25mg Take 25 mg Univers MINE 25 mg 8-02 by mouth ity o f capsule 13:03: every 6 [place] [address] (six) Medical hours as Branch needed for Allergies. carbamazepi 0 Yes Take by Uni vers ne 8-02 mouth. ity of (TEGRETOL 13:03: [place] ORAL) Medical Branch citalopram Yes Take by [facility] ers hydrobromid 8-02 mouth. ity of e 13:03: [place] (CITALOPRAM 04 Medical ORAL) Branch ALBUTEROL Yes Univers INHALE 12-12 ity of 13:03: [place] 04 Medical Branch diphenhydrA Yes 25mg Take 25 mg Univers MINE 25 mg 12-12 by mouth ity o f capsule 13:03: every 6 [place] [address] (six) Medical hours as Branch needed for Allergies. carbamazepi Yes Take by Uni vers ne 8 mouth. ity of (TEGRETOL 13:03: [place] ORAL) Medical Branch citalopram Yes Take by [facility] ers hydrobromid - mouth. ity of e 13:03: [place] (CITALOPRAM 04 Medical ORAL) Branch ALBUTEROL Yes Univers INHALE 12-12 ity of 13:03: Medical Branch traZODone Yes [id number] 50mg Take 1 U nivers 50 mg 8-02 tablet by ity of tablet 00:00: mouth at [place] 00 bedtime. Medical Branch SERTraline Yes [id number] 50mg Take 1 Univers (ZOLOFT) 50 8-02 tablet by ity of mg tablet 00:00: [place] 00 the Medical morning. Branch traZODone Yes [id number] 50mg Take 1 U nivers 50 mg 8-02 tablet by ity of tablet 00:00: mouth at [place] 00 bedtime. Medical Branch SERTraline Yes [id number] 50mg Take 1 Univers (ZOLOFT) 50 8-02 tablet by ity of mg tablet 00:00: [place] 00 the Medical morning. Branch traZODone Yes [id number] 50mg Take 1 U nivers 50 mg 8-02 tablet by ity of tablet 00:00: mouth at [place] 00 bedtime. Medical Branch SERTraline Yes [id number] 50mg Take 1 Univers (ZOLOFT) 50 8-02 tablet by ity of mg tablet 00:00: [place] 00 the Medical morning. Branch traZODone 2022-0 Yes [id number] 50mg Take 1 U nivers 50 mg 8-02 tablet by ity of tablet 00:00: mouth at [place] 00 bedtime. Medical Branch SERTraline 2021-0 Yes [id number] 50mg Take 1 Univers (ZOLOFT) 50 8-02 tablet by ity of mg tablet 00:00: mouth [place] 00 the Medical morning. Branch traZODone 2021-0 Yes [id number] 50mg Take 1 U nivers 50 mg 8-02 tablet by ity of tablet 00:00: mouth at [place] 00 bedtime. Medical Branch SERTraline 0 Yes [id number] 50mg Take 1 Univers (ZOLOFT) 50 8-02 tablet by ity of mg tablet 00:00: mouth in [facility] 00 the Medical morning. Branch traZODone 0 Yes [id number] 50mg Take 1 U nivers 50 mg 8-02 tablet by ity of tablet 00:00: mouth at [place] 00 bedtime. Medical Branch SERTraline 0 Yes [id number] 50mg Take 1 Univers (ZOLOFT) 50 8-02 tablet by ity of mg tablet 00:00: mouth in [facility] 00 the Medical morning. Branch sulfamethox 2021- No [id number] 1{tbl} Take 1 Univers azole-trime 8-02 08-06 tablet by it y of thoprim 00:00: 04:59 mouth in [place] (BACTRIM 00 :00 the Medical DS) 800-160 morning Branc h mg per and 1 tablet tablet in the evening. Do all this for 3 days. ibuprofen 2021-0 Yes [id number] 600mg Take 1 Univers 600 mg 7-15 tablet by ity of tablet 00:00: mouth [place] 00 every 6 Medical (six) Branch hours as needed for Pain (scale 4-6). ibuprofen 2021-0 Yes [id number] 600mg Take 1 Univers 600 mg 7-15 tablet by ity of tablet 00:00: mouth [place] [address] every 6 Medical (six) Branch hours as needed for Pain (scale 4-6). ibuprofen 2021-0 Yes [id number] 600mg Take 1 Univers 600 mg 7-15 tablet by ity of tablet 00:00: mouth [place] [address] every 6 Medical (six) Branch hours as needed for Pain (scale 4-6). ibuprofen 2021-0 Yes [id number] 600mg Take 1 Univers 600 mg 7-15 tablet by ity of tablet 00:00: mouth [place] 00 every 6 Medical (six) Branch hours as needed for Pain (scale 4-6). ibuprofen 2021-0 Yes [id number] 600mg Take 1 Univers 600 mg 7-15 tablet by ity of tablet 00:00: mouth [place] 00 every 6 Medical (six) Branch hours as needed for Pain (scale 4-6). ibuprofen 2021-0 Yes [id number] 600mg Take 1 Univers 600 mg 7-15 [...] Indication s: acute pain bromphenira 2021-0 Yes [id number] 5mL Take 5 mL Univers mine-pseudo 7-09 by mouth 4 it y of ephedrine-D 00:00: (four) [place] (BROMFED 00 times Medical DM) 2-30-10 daily as Bran ch mg/5 mL needed for syrup Congestion /Allergies or Cough. naproxen 2021-0 Yes [id number] 500mg Take 1 U nivers 500 mg 7-09 tablet by ity of tablet 00:00: mouth [place] 00 every 8 Medical (eight) Branch hours as needed for Pain (scale 4-6). cyclobenzap 2021-0 Yes [id number] 10mg Take 1 Univers rine 10 mg 7-09 tablet by ity of tablet 00:00: mouth at [place] 00 bedtime as Medical needed for Branch Muscle Spasms. bromphenira 2021-0 Yes [id number] 5mL Take 5 mL Univers mine-pseudo 7-09 by mouth 4 it y of ephedrine-D 00:00: (four) [place] M (BROMFED 00 times Medical DM) 2-30-10 daily as Bran ch mg/5 mL needed for syrup Congestion /Allergies or Cough. naproxen 202-0 Yes [id number] 500mg Take 1 U nivers 500 mg 7-09 tablet by ity of tablet 00:00: mouth [place] 00 every 8 Medical (eight) Branch hours as needed for Pain (scale 4-6). cyclobenzap 2021-0 Yes [id number] 10mg Take 1 Univers rine 10 mg 7-09 tablet by ity of tablet 00:00: mouth at [place] 00 bedtime as Medical needed for Branch Muscle Spasms. bromphenira 2021-0 Yes [id number] 5mL Take 5 mL Univers mine-pseudo 7-09 by mouth 4 it y of ephedrine-D 00:00: (four) [place] M (BROMFED 00 times Medical DM) 2-30-10 daily as Bran ch mg/5 mL needed for syrup Congestion /Allergies or Cough. naproxen 2021-0 Yes [id number] 500mg Take 1 U nivers 500 mg 7-09 tablet by ity of tablet 00:00: mouth [place] 00 every 8 Medical (eight) Branch hours as needed for Pain (scale 4-6). cyclobenzap 2021-0 Yes [id number] 10mg Take 1 Univers rine 10 mg 7-09 tablet by ity of tablet 00:00: mouth at [place] 00 bedtime as Medical needed for Branch Muscle Spasms. bromphenira 2021-0 Yes [id number] 5mL Take 5 mL Univers mine-pseudo 7-09 by mouth 4 it y of ephedrine-D 00:00: (four[place] M (BROMFED 00 times Medical DM) 2-30-10 daily as Bran ch mg/5 mL needed for syrup Congestion /Allergies or Cough. naproxen 2021-0 Yes [id number] 500mg Take 1 U nivers 500 mg 7-09 tablet by ity of tablet 00:00: mouth [place] 00 every 8 Medical (eight) Branch hours as needed for Pain (scale 4-6). cyclobenzap 2022-0 Yes [id number] 10mg Take 1 Univers rine 10 mg 7-09 tablet by ity of tablet 00:00: mouth at [place] 00 bedtime as Medical needed for Branch Muscle Spasms. bromphenira 2021-0 Yes [id number] 5mL Take 5 mL Univers mine-pseudo 7-09 by mouth 4 it y of ephedrine-D 00:00: (four) [place] M (BROMFED 00 times Medical DM) 2-30-10 daily as Bran ch mg/5 mL needed for syrup Congestion /Allergies or Cough. naproxen 2021-0 Yes [id number] 500mg Take 1 U nivers 500 mg 7-09 tablet by ity of tablet 00:00: mouth [place] 00 every 8 Medical (eight) Branch hours as needed for Pain (scale 4-6). cyclobenzap 2021-0 Yes [id number] 10mg Take 1 Univers rine 10 mg 7-09 tablet by ity of tablet 00:00: mouth at [place] 00 bedtime as Medical needed for Branch Muscle Spasms. bromphenira 2021-0 Yes [id number] 5mL Take 5 mL Univers mine-pseudo 7-09 by mouth 4 it y of ephedrine-D 00:00: (four) [place] M (BROMFED 00 times Medical DM) 2-30-10 daily as Bran ch mg/5 mL needed for syrup Congestion /Allergies or Cough. naproxen 2021-0 Yes [id number] 500mg Take 1 U nivers 500 mg 7-09 tablet by ity of tablet 00:00: mouth [place] 00 every 8 Medical (eight) Branch hours as needed for Pain (scale 4-6). cyclobenzap 2021-0 Yes [id number] 10mg Take 1 Univers rine 10 mg 7-09 tablet by ity of tablet 00:00: mouth at [place] 00 bedtime as Medical needed for Branch Muscle Spasms. ibuprofen 2021-0 Yes [id number] 605mg Take 30.25 Univers 100 mg/5 mL 6-15 mL by ity of oral 00:00: mouth [place] suspension 00 every 6 Medica l (six) Branch hours as needed for Pain (scale 4-6) or Temp > 38.5 C. ibuprofen 2021-0 Yes [id number] 605mg Take 30.25 Univers 100 mg/5 mL 6-15 mL by ity of oral 00:00: mouth [place] suspension 00 every 6 Medica l (six) Branch hours as needed for Pain (scale 4-6) or Temp > 38.5 C. ibuprofen 2021-0 Yes [id number] 605mg Take 30.25 Univers 100 mg/5 mL 6-15 mL by ity of oral 00:00: mouth [place] suspension 00 every 6 Medica l (six) Branch hours as needed for Pain (scale 4-6) or Temp > 38.5 C. ibuprofen 2-0 Yes [id number] 605mg Take 30.25 Univers 100 mg/5 mL 6-15 mL by ity of oral 00:00: mouth [place] suspension 00 every 6 Medica l (six) Branch hours as needed for Pain (scale 4-6) or Temp > 38.5 C. ibuprofen 2021-0 Yes [id number] 605mg Take 30.25 Univers 100 mg/5 mL 6-15 mL by ity of oral 00:00: mouth [place] suspension 00 every 6 Medica l (six) Branch hours as needed for Pain (scale 4-6) or Temp > 38.5 C. ibuprofen 2021-0 Yes [id number] 605mg Take 30.25 Univers 100 mg/5 mL 6-15 mL by ity of oral 00:00: mouth [place] suspension 00 every 6 Medica l (six) Branch hours as needed for Pain (scale 4-6) or Temp > 38.5 C. acetaminoph 2021-0 2021- No [id number] 608mg Take 19 mL Univers en 160 [...] 00 :00 Medical Branch mometasone 2022-0 Yes [id number] 1{spray Use 1 Univers 50 5-19 } [place] in ity of mcg/actuati 00:00: each [place] on nasal 00 nostril 2 Medica l spray (two) Branch times daily. mometasone 2021-0 Yes [id number] 1{spray Use 1 Univers 50 5-19 } [place] in ity of mcg/actuati 00:00: each [place] on nasal 00 nostril 2 Medica l spray (two) Branch times daily. mometasone Yes [id number] 1{spray Use 1 Univers 50 5-19 } [place] in ity of mcg/actuati 00:00: each [place] on nasal 00 nostril 2 Medica l spray (two) Branch times daily. mometasone Yes [id number] 1{spray Use 1 Univers 50 5-19 } [place] in ity of mcg/actuati 00:00: each [place] on nasal 00 nostril 2 Medica l spray (two) Branch times daily. mometasone Yes [id number] 1{spray Use 1 Univers 50 5-19 } [place] in ity of mcg/actuati 00:00: each [place] on nasal 00 nostril 2 Medica l spray (two) Branch times daily. mometasone Yes [id number] 1{spray Use 1 Univers 50 5-19 } [place] in ity of mcg/actuati 00:00: each [place] on nasal 00 nostril 2 Medica l spray (two) Branch times daily. cetirizine Yes [id number] 10mg Take 1 U nivers (ZYRTEC) 10 5-16 tablet by ity of mg tablet 00:00: mouth [place] 00 daily. Medical Branch cetirizine 0 Yes [id number] 10mg Take 1 U nivers (ZYRTEC) 10 5-16 tablet by ity of mg tablet 00:00: mouth [place] 00 daily. Medical Branch cetirizine 0 Yes [id number] 10mg Take 1 U nivers (ZYRTEC) 10 5-16 tablet by ity of mg tablet 00:00: mouth 00 daily. Medical Branch cetirizine 0 Yes [id number] 10mg Take 1 U nivers (ZYRTEC) 10 5-16 tablet by ity of mg tablet 00:00: mouth 00 daily. Medical Branch cetirizine 2022-0 Yes [id number] 10mg Take 1 U nivers (ZYRTEC) 10 5-16 tablet by ity of mg tablet 00:00: mouth 00 daily. Medical Branch cetirizine 2022-0 Yes [id number] 10mg Take 1 U nivers (ZYRTEC) 10 [...] tablet - ity of 00:00: [place] [facility] Branch amLODIPine 2-0 Yes 5mg Take 5 mg Un sushant 5 mg tablet 4-22 by mouth. ity of 00:00: [place] [facility] Branch amLODIPine 2021-0 Yes Univers 5 mg tablet - ity of 00:00: [place] [facility] amLODIPine 2021-0 Yes 5mg Take 5 mg Un sushant 5 mg tablet -22 by mouth. ity of 00:00: [place] [facility] Branch amLODIPine 2-0 Yes Univers 5 mg tablet - ity of 00:00: [place] [facility] amLODIPine 2021-0 Yes 5mg Take 5 mg Un sushant 5 mg tablet -22 by mouth. ity of 00:00: [place] [facility] Branch amLODIPine 2-0 Yes Univers 5 mg tablet - ity of 00:00: [place] [facility] Branch amLODIPine 2021-0 Yes 5mg Take 5 mg Un sushant 5 mg tablet 4-22 by mouth. ity of 00:00: [place] [facility] Branch amLODIPine 2-0 Yes Univers 5 mg tablet - ity of 00:00: [place] [facility] amLODIPine 2-0 Yes 5mg Take 5 mg Un sushant 5 mg tablet 4-22 by mouth. ity of 00:00: [place] [facility] Branch amLODIPine 2-0 Yes Univers 5 mg tablet 4-22 ity of 00:00: [place] [facility] Branch amLODIPine 2-0 Yes 5mg Take 5 [...] 00:00: 04:59 mouth. [place] tablet 00 :00 [facility] Branch buPROPion 2022- No 150mg Take 150 Un sushant XL 150 mg 4-20 04-21 mg by ity of 24 hr 00:00: 04:59 mouth. [place] tablet 00 :00 [facility] Branch buPROPion 2022- No 150mg Take 150 Un sushant XL 150 mg 4-20 04-21 mg by ity of 24 hr 00:00: 04:59 mouth. [place] tablet 00 :00 [facility] Branch buPROPion 2022- No 150mg Take 150 Un sushant XL 150 mg 4-20 04-21 mg by ity of 24 hr 00:00: 04:59 mouth. [place] tablet 00 :00 [facility] Branch buPROPion 2022- No 150mg Take 150 Un sushant XL 150 mg 4-20 04-21 mg by ity of 24 hr 00:00: 04:59 mouth. [place] tablet 00 :00 [facility] Branch buPROPion 2022- No 150mg Take 150 Un sushant XL 150 mg 4-20 04-21 mg by ity of 24 hr 00:00: 04:59 mouth. [place] tablet 00 :00 [facility] Branch carvediloL 2020-05 Yes 25mg Take 1 Unive rs 25 mg 2-30 tablet by ity of tablet 00:00: mouth 2 (two) Medical times [place] daily with meals. losartan 50 2020-05 Yes [...] Medical 20 mg QPM Branch methocarbam Yes [employer] of 500mg Take 1 Univers oL 4-08 [...] area(s) [place] patch 00 every 24 Medical ([facility] ur) hours as needed for Localized pain. topiramate Yes 25mg Take 1 Unive rs 25 mg 1-05 tablet by ity of tablet 00:00: mouth 2 [place] 00 (two) Medical times Branch daily. Immunizations Ordered Filled Immunization Date Status Comments [facility] e Immunization Name Name Influenza Virus 2021-06-11 Completed Universit y of Vaccine 00:00:00 [facility] Influenza Virus 2021-06-11 Completed Universit y of Vaccine 00:00:00 [facility] Influenza Virus 2021-06-11 Completed Universit y of Vaccine 00:00:00 [facility] Influenza Virus 2021-06-11 Completed Universit y of Vaccine 00:00:00 [facility] Influenza Virus 2021-06-11 Completed Universit y of Vaccine 00:00:00 [facility] Influenza Virus 2021-06-11 Completed Universit y of Vaccine 00:00:00 [facility] Influenza Virus 2020-05-19 Completed Universit y of Vaccine 00:00:00 [facility] Influenza Virus 2020-05-19 Completed Universit y of Vaccine 00:00:00 [facility] Influenza Virus 2020-05-19 Completed Universit y of Vaccine 00:00:00 [facility] Influenza Virus 2020-05-19 Completed Universit y of Vaccine 00:00:00 [facility] Influenza Virus 2020-05-19 Completed Universit y of Vaccine 00:00:00 [facility] Influenza Virus 2020-05-19 Completed Universit y of Vaccine 00:00:00 [facility] Influenza Virus 2020-05-19 Completed Universit y of Vaccine 00:00:00 [facility] Influenza Virus 2020-05-16 Completed Universit y of [...] [facility] TDAP (ADACEL) 2019-05-21 Completed University of VACCINE 00:00:00 [facility] TDAP (ADACEL) 2019-05-21 Completed University of VACCINE 00:00:00 [facility] TDAP (ADACEL) 2019-05-21 Completed University of VACCINE 00:00:00 [facility] TDAP (ADACEL) 2019-05-21 Completed University of VACCINE 00:00:00 [facility] TDAP (ADACEL) 2019-05-21 Completed University of VACCINE 00:00:00 [facility] TDAP (ADACEL) 2019-05-21 Completed University of VACCINE 00:00:00 [facility] Influenza Virus 2019-02-06 Completed Universit y of [...] y of Vaccine Quad .5 mL 00:00:[address] [facility] 6+ MO Branch Vital Signs Vital Name Observation Time Observation Value Comments Source Systolic blood 2022-02-05 14:31:00 128 mm[Hg] Univer sity of pressure [place] [facility] Diastolic blood 2022-02-05 14:31:00 84 mm[Hg] Unive rsity of pressure [facility] Heart rate 2022-02-05 14:31:00 86 /min Universi ty of [place] [facility] Body temperature 2022-02-05 14:31:00 37.89 Irene Univ ersity of [place] [facility] Respiratory rate 2022-02-05 14:31:00 18 /min Univ ersity of [place] [facility] Body height 2022-02-05 14:31:00 154.9 cm Universi ty of [place] [facility] Body weight 2022-02-05 14:31:00 54.432 kg Universi ty of [place] [facility] BMI 2022-02-05 14:31:00 22.67 kg/m2 Universi ty of [facility] Oxygen saturation in 2022-02-05 14:31:00 98 /min University of Arterial blood by [facility] [place] Pulse oximetry Branch Systolic blood 2022-01-18 14:50:00 144 mm[Hg] Univer sity of pressure [place] [facility] Diastolic blood 2022-01-18 14:50:00 92 mm[Hg] Unive rsity of pressure [place] [facility] Heart rate 2022-01-18 14:50:00 94 /min Universi ty of [place] [facility] Respiratory rate 2022-01-18 14:50:00 20 /min Univ ersity of [place] [facility] Oxygen saturation in 2022-01-18 14:50:00 99 /min University of Arterial blood by [place] [employer] [facility] Pulse oximetry Branch Body weight 2022-01-18 10:18:00 54.432 kg Universi ty of [place] [facility] BMI 2022-01-18 10:18:00 22.67 kg/m2 Universi ty of [place] [facility] Body temperature 2022-01-18 10:15:00 36.72 Irene Univ ersity of [place] [facility] Systolic blood 2022-01-15 15:48:26 125 mm[Hg] Univer [...] 98 /min University of Arterial blood by [facility] yessi Pulse oximetry Branch Body temperature [...] 97 /min University of Arterial blood by [facility] [place] Pulse oximetry Branch Body height 2022-01-08 23:03:00 [...] Branch Body temperature 2021-12-12 18:00:00 36.89 Irene [facility] Respiratory rate 2021-12-12 18:00:00 18 /min [facility] Body height 2021-12-12 18:00:00 154.9 cm [facility] Body weight 2021-12-12 18:00:00 57.153 kg [facility] BMI 2021-12-12 18:00:00 23.81 kg/m2 [facility] Procedures Procedure Date / Time Performing Clinician Source Performed US GALL BLADDER 2022-01-18 12:31:09 Bernardo Levy [facility] US PELVIS COMPLETE WITH 2022-01-18 12:21:13 Melvin Zhao [facility] TRANSVAGINAL [facility] CT ABDOMEN PELVIS W 2022-01-18 11:20:50 Melvin Zhao [facility] CONTRAST [facility] POCT TEST 2022-01-18 10:57:00 Jayy Kennedy [facility] COVID-19 (ID NOW RAPID 2022-01-18 10:57:00 Jayy Kennedy [facility] TESTING) [facility] URINALYSIS 2022-01-18 10:47:00 Jayy Kennedy [facility] LIPASE 2022-01-18 10:29:00 Jayy Kennedy [facility] TEST, SERUM 2022-01-18 10:29:00 Jayy Kennedy [facility] HEPATIC FUNCTION PANEL 2022-01-18 10:29:00 Jayy Kennedy [facility] ([id number]) (ALB,T.PRO,BILI [facility] T,BU/BC,ALT,AST,ALK PHOS) BASIC METABOLIC PANEL 2022-01-18 10:29:00 Jayy Kennedy [facility] (NA, K, CL, CO2, Medical Branch GLUCOSE, BUN, CREATININE, CA) CBC WITH DIFF 2022-01-18 10:29:00 Jayy Kennedy [facility] CONSENT/REFUSAL FOR 2022-01-18 10:13:31 Doctor Unassigned, No Un [facility] DIAGNOSIS AND TREATMENT Name [facility] HEAD WO CONTRAST 2022-01-15 15:22:29 Maura Samayoa [facility] TEST, SERUM 2022-01-15 14:36:00 Danita [facility] BASIC METABOLIC PANEL 2022-01-15 14:36:00 Danita [facility] (NA, K, CL, CO2, [facility] Branch GLUCOSE, BUN, CREATININE, CA) CBC WITH DIFF 2022-01-15 14:36:00 Danita [facility] CONSENT/REFUSAL FOR 2022-01-15 13:28:12 Doctor [facility]assigned, [facility] Name [facility] XR CERVICAL SPINE 4 VW 2022-01-09 00:29:16 Gabriela [facility] XR LUMBAR SPINE 4 VW 2022-01-09 00:29:16 Gabriela [facility] XR SPINE THORACIC 3 VW 2022-01-09 00:29:16 Gabriela [facility] URINALYSIS 2022-01-08 23:50:00 Gabriela [facility] CONSENT/REFUSAL FOR 2022-01-08 22:51:08 Doctor Unassigned, No Un [facility] DIAGNOSIS AND TREATMENT Name [facility] GALV ONLY - VAGINAL 2021-12-12 18:37:00 Prasanna Vargas [facility] PATHOGENS BY [facility] ACID TESTING URINE CULTURE 2021-12-12 18:32:00 Alicia Prasanna [facility] o f [facility] POCT TEST 2021-12-12 18:31:00 Pras[facility] POCT URINALYSIS W/O 2021-12-12 18:31:00 [facility] SPECIFIC GRAVITY [facility] Plan of Care Planned Activity Planned Date Details Comments Source Future Scheduled 2029-05-21 DTaP,Tdap,and Td [facility] Test 00:00:00 Vaccines (2 - Td) Medical Br anch [code = DTaP,Tdap,and Td Vaccines (2 - Td)] Future Scheduled 2021-09-06 Depression screening [facility] Test 00:00:00 (procedure) [code = Medical Branch [id number]] Future Scheduled 2016-02-[address] [facility] Test 00:00:00 malignant neoplasm Medical [place] ranch of cervix (procedure) [code = 622078054] Future Scheduled [address] [facility] Test 00:00:00 screening Medical Branch (procedure) [code = 688509784] Future Scheduled 2011 SARS-CoV-2 [facility] Test 00:00:00 (COVID-19) Vaccine Medical [facility] ranch (1) [code = SARS-CoV-2 (COVID-19) Vaccine (1)] Future Scheduled 2006 HPV VACCINES (1 - Univer [facility] Test 00:00:00 2-dose series) [code Medical Branch = HPV VACCINES (1 - 2-dose series)] Encounters Start End Encounter Admission Attending Care Care Encounter Source Date/Time Date/Time Type Type Clinicians Facility Department ID 2021-03-14 Emergency [facility] [id number] Univers 03:14:31 ity of [facility] 2021-03-13 Emergency [facility] [id number] Univers 20:05:20 ity of [facility] 2021-03-13 Emergency [facility] [id number] Univers 12:48:28 ity of [facility] 2021-03-13 Emergency [facility] [id number] Univers 02:43:51 ity of [facility] 2021-03-13 Emergency [facility] [id number] Univers 00:27:09 ity of [facility] 2021-03-12 Emergency [facility] [id number] Univers 22:10:36 ity of [facility] 2021-03-12 Emergency [facility] [id number] Univers 20:04:05 ity of [facility] 2021-03-12 Emergency [facility] [id number] Univers 15:25:05 ity of [facility] 2021-03-12 Emergency [facility] [id number] Univers 11:43:36 ity of [facility] 2021-03-12 Emergency [facility] [id number] Univers 07:41:37 ity of [facility] 2021-03-12 Emergency [facility] [id number] Univers 05:43:47 ity of [facility] 2021-03-12 Emergency [facility] [id number] Univers 03:43:41 ity of [facility] 2021-03-12 Emergency [facility] [id number] Univers 01:31:27 ity of [facility] 2021-03-12 Emergency X [facility] ERT [id number] Univers 00:56:44 ity of [facility] 2021-03-12 Emergency [facility] [id number] Univers 00:56:31 ity of [facility] 2021-03-11 Emergency [facility] [id number] Univers 17:47:02 ity of [facility] 2021-03-11 Emergency [facility] [id number] Univers 16:27:15 ity of [facility] 2021-03-11 Emergency [facility] [id number] Univers 13:13:17 ity of [facility] 2021-03-11 Emergency [facility] [id number] Univers 12:16:27 ity of [facility] 2021-03-11 Emergency [facility] [id number] Univers 12:00:58 ity of [facility] 2021-03-11 Emergency [facility] [id number] Univers 10:33:59 ity of [facility] 2021-03-11 Emergency [facility] [id number] Univers 08:30:51 ity of [facility] 2021-03-11 Emergency [facility] [id number] Univers 01:36:52 ity of [facility] 2021-03-10 Emergency [facility] [id number] Univers 23:35:34 ity of [facility] 2021-03-10 Emergency [facility] [id number] Univers 19:06:16 ity of [facility] 2021-03-10 Emergency [facility] [id number] Univers 12:39:47 ity of [facility] 2021-03-10 Emergency [facility] [id number] Univers 06:54:04 ity of [facility] 2021-03-09 Outpatient P [facility] CHRIS [id number] Univers 13:25:44 ity of [facility] 2021-03-09 Outpatient P [facility] [id number] Univers 13:08:01 ity of [facility] 2021-03-09 Outpatient P [facility] [id number] Univers 12:37:25 ity of [facility] 2021-03-09 Outpatient P [facility] CHRIS [id number] Univers 11:51:20 ity of [facility] 2022-02-09 2022-02-09 Outpatient R BRANDON, [facility] [id number] Univers 09:00:00 09:00:00 CRICKET lechuga o f [facility] 2022-02-06 2022-02-06 [facility] [id number] Univers 10:00:00 10:00:00 VIJAY itchino [facility] 2022-02-05 2022-02-05 Nurse Nurse, Filippo [facility] [id number] Univers 09:45:00 10:05:00 Visit [facility] [id number] ity of [place] [id number] [place] as TOÑO?BLEA [id number] In whit MINOREY [address] MEDICAL OFFICE BUILDING 2022-02-05 2022-02-05 [facility] [id number] Univers 09:20:00 09:20:00 FLACO lechuga o f [facility] 2022-01-26 2022-01-26 Prasanna Gimenez [facility] [id number] Univers 00:00:00 00:00:00 Management Cam [place] [id number] ity [facility] [id number] [id number] In dical MELISSA 134 Branch BUILDING 2022-01-22 2022-01-22 [facility] [id number] Univers 11:00:00 11:00:00 VIJAY maradiagachino [facility] 2022-01-18 2022-01-18 Emergency X GARDENIA [facility] ERT [id number] Univers 05:17:00 10:25:00 BERNARDO lechuga [facility] 2022-01-18 2022-01-18 Emergency KennedyJayy W TRAUMA [id number] Univers 05:17:00 10:25:00 Bernardo Levy MASSILLON [id number] [id number] [place] [id number] [facility] 014 Branch 2022-01-15 2022-01-15 Emergency X DANITA [facility] ERT [id number] Univers 08:34:00 10:49:00 MAURA ankush [facility] 2022-01-15 2022-01-15 Emergency Larry Perez R [facility] [id number] Univers 08:34:00 10:49:00 Maura Samayoa [facility] [id number] ity of [place] [id number] [id number] [address] 2022-01-08 2022-01-08 Emergency X GABRIELA, [facility] ERT [id number] Univers 18:04:00 20:09:00 HUMBERTO [facility] 2022-01-08 2022-01-08 Emergency [facility] [id number] Univers 18:04:00 20:09:00 Humberto LAWSON [id number] i ty of [place] [id number] [place] [id number] [address] 2021-12-12 2021-12-12 Outpatient Farzana CARNES [facility] [id number] Univers 13:30:00 13:40:21 TETO lechuga [facility] 2021-12-12 2021-12-12 Office Prasanna Vargas [facility] [id number] Univers 13:30:00 13:40:21 Visit Teto Carnes [id number] [facility] [id number] [id number] [address] 2021-12-12 2021-12-12 Outpatient Farzana CARNES [facility] [id number] Univers 13:30:00 13:40:21 TETO lechuga [facility] 2021-12-12 2021-12-12 Outpatient Farzana CARNES [facility] [id number] Univers 13:30:00 13:40:21 TETO [facility] 2021-12-11 2021-12-11 Outpatient R SUZETTE, [facility] [id number] Univers 16:15:00 16:15:00 SANTIAGO [facility] 2021-12-05 2021-12-05 Outpatient R LYSSA, [facility] [id number] Univers 14:15:00 14:15:00 ROMULO [facility] 2021-11-28 2021-11-28 Emergency X NORTON, [facility] ERT [id number] Univers 08:49:00 11:02:00 KARON [facility] 2021-11-28 2021-11-28 [facility] [id number] Univers 08:49:00 11:02:00 Karon [place] [id number] i ty of [place] [id number] [facility] [id number] [address] 2021-11-24 2021-11-24 Emergency X DEV, K [facility] ERT [id number] Univers 18:14:00 21:04:00 [facility] 2021-11-24 2021-11-24 Emergency Dev, K [facility] [id number] Univers 18:14:00 21:04:00 Sharlene [place] [id number] i ty of [place] [id number] [facility] [id number] [address] 2021-11-24 2021-11-24 Telephone [facility] [id number] Univers 00:00:00 00:00:00 Cricket Lopez [employer]ATWORK [employer]DER [id number] ity [facility] [id number] [place] as MATERNAL [id number] Med ical & CHILD [address] [place] [address] 2021-11-20 2021-11-20 Patient [facility] [id number] Univers 00:00:00 00:00:00 Secure Msg [place] [employer] [id number] ity of [facility] [id number] [place] as TOÑO?BLEA [id number] In dical MIKI [address] MEDICAL OFFICE [facility] 2021-11-19 2021-11-19 JORDAN Ramirez [id number] Univers 00:00:00 00:00:00 (Out) Leslie ARCE [id number] it y of HOSPITAL [id number] [place] as [id number] [address] 2021-11-18 2021-11-18 Outpatient [facility] [id number] Univers 10:41:40 23:59:00 FLACO lechuga o f [facility] 2021-11-18 2021-11-18 [facility] [id number] Univers 10:41:40 23:59:00 Encounter [facility] [id number] ity of [place] [id number] [place] as TOÑO?BLEA [id number] In whit [place] 808 [facility] OFFICE [facility] 2021-11-18 2021-11-18 Urgent [facility] 1.2.840.114 [id number] Univers 10:20:00 10:53:20 [facility] [id number] i ty of [place] [id number] [place] as TOÑO?BLEA [id number] In dicaliyah [place] 370 [facility] OFFICE [facility] 2021-11-09 2021-11-09 Outpatient [facility] [id number] Univers 10:30:00 10:30:00 CELINA maradiagay of [facility] 2021-10-25 2021-10-25 Urgent Ileana Medrano [facility] 1.2.840.114 [id number] Univers 13:20:00 13:20:00 Care [facility] [id number] ity [facility] [id number] [place] as TOÑO?BLEA [id number] In dical MIKI [address] MEDICAL OFFICE [facility] 2021-10-25 2021-10-25 Outpatient Farzana MEDRANO [facility] [id number] Univers 13:20:00 12:47:59 ILEANA lechuga [facility] 2021-10-25 2021-10-25 Patient Juan [facility] 1.2.840.114 [id number] Univers 00:00:00 00:00:00 Secure Msg Vijay HEALTH [id number] ity of [place] [id number] [place] as TOÑO?BLEA [id number] In whit [place] 044 [facility] OFFICE [facility] 2021-10-25 2021-10-25 Telephone Juan [facility] [id number] Univers 00:00:00 00:00:00 Vijay HEALTH [id number] it y of [place] 4.2.7.2.686 Martin as TOÑO?BLEA [phone] [facility] 044 [facility] OFFICE [facility] 2021-10-25 2021-10-25 Telephone Provider, [facility] 1.2.840.114 [id number] Univers 00:00:00 00:00:00 Ang Db HEALTH 350.1.13.10 it y of Urgent Care [place] 4.2.7.2.686 [place] TOÑO?BLEA [phone] [facility] 370 [facility] OFFICE [facility] 2021-10-25 2021-10-25 Telephone Nurse, Filippo [facility] 1.2.840.114 [id number] Univers 00:00:00 00:00:00 Db Urgent HEALTH 350.1.13.10 ity of Care [place] 4.2.7.2.686 [place] TOÑO?BLEA [phone] [address] OFFICE [facility] 2021-10-24 2021-10-24 Outpatient Farzana [facility] [id number] Univers 10:15:00 10:15:00 ROMULO lechuga [facility] 2021-10-24 2021-10-24 Outpatient Farzana [facility] [id number] Univers 10:15:00 10:15:00 ROMULO lechuga [facility] 2021-10-11 2021-10-11 Outpatient R LYSSA [facility] [id number] Univers 09:30:00 09:30:00 ROMULO ity [facility] 2021-10-10 2021-10-10 Outpatient R PRASANNA VARGAS [facility] [id number] Univers 13:30:00 13:30:00 ity of [facility] 2021-10-10 2021-10-10 Outpatient R PRASANNA [facility]ARGAS [facility] [id number] Univers 13:30:00 13:30:00 ity [facility] 2021-10-10 2021-10-10 Outpatient R [facility] [id number] Univers 13:30:00 13:30:00 ity [facility] 2021-10-10 2021-10-10 Outpatient R PRASANNA VARGAS [facility] [id number] Univers 13:30:00 13:30:00 ity [facility] 2021-10-10 2021-10-10 Outpatient R [facility] [id number] Univers 13:30:00 13:30:00 ity of [facility] 2021-10-10 2021-10-10 Outpatient R [facility]IA [facility] [id number] Univers 13:30:00 13:30:00 ity [facility] 2021-10-10 2021-10-10 Outpatient R [facility] [id number] Univers 13:30:00 13:30:[facility] 2021-10-05 2021-10-05 [facility] 1.2.840.114 [id number] Univers 00:00:00 00:00:00 Secure Msg Edmonds [facility] 350.1.13.10 ity of [place] 4.2.7.2.686 [place] TOÑO?BLEA [phone] [address] MEDICAL OFFICE BUILDING 2021-10-05 2021-10-05 Patient Robb [facility] 1.2.840.114 [id number] Univers 00:00:00 00:00:00 Secure Msg Edmonds [facility] 350.1.13.10 ity of [place] 4.2.7.2.686 [place] TOÑO?BLEA [phone] In alessandra[address] MEDICAL OFFICE BUILDING 2021-10-04 2021-10-04 Pre Visit HILARIO Rodriguez 1.2.117.896 [id number] Univers 00:00:00 00:00:00 Outreach Melia TELLO 350.1.13.10 [place] of [phone] [place] [address] [place] 2021-09-28 2021-09-28 Office [facility] 1.2.840.114 [id number] Univers 13:30:00 13:45:00 Visit Celina RAMIREZTANY 350.1.13.10 it[place] of [place] 4.2.7.2.686 [place] [phone] [address] 2021-09-28 2021-09-28 Outpatient R APURVA [facility] [id number] Univers 13:30:00 13:30:00 CELINA [facility] 2021-09-28 2021-09-28 Outpatient R APURVA [facility] [id number] Univers 13:30:00 13:30:00 CELINA [facility] 2021-09-28 2021-09-28 [facility] 1.2.840.114 [id number] Univers 00:00:00 00:00:00 Secure Msg Celina WATERSY 350.1.13.10 ity of [place] 4.2.7.2.686 [place] [phone] [address] 2021-09-27 2021-09-27 Outpatient R DEYVI [facility] [id number] Univers 14:00:00 14:00:00 TETO lechuga [facility] 2021-09-27 2021-09-27 Outpatient Farzana [facility] [id number] Univers 09:30:00 09:30:00 DANIA lechuga [facility] 2021-09-27 2021-09-27 Outpatient Farzana [facility] [id number] Univers 09:30:00 09:30:00 DANIA lechuga [facility] 2021-09-272021-09-27 Outpatient R ADITI [facility] [id number] Univers 09:30:00 09:30:00 DANIA maradiagachino of [facility] 2021-09-26 2021-09-26 Outpatient R BRANDON, [facility] [id number] Univers 10:45:00 10:45:00 CRICKET ity o [facility] 2021-09-26 2021-09-26 Outpatient R BRANDON, [facility] [id number] Univers 10:45:00 10:45:00 CRICKET ity o [facility] 2021-09-26 2021-09-26 Patient Juan [facility] 1.2.840.114 [id number] Univers 00:00:00 00:00:00 Secure [facility] Vijay HEALTH 350.1.13.10 ity of [place] 4.2.7.2.686 [place] as TOÑO?BLEA [phone] [facility] [address] [place] [address] MEDICAL OFFICE [facility] 2021-09-26 2021-09-26 Patient Juan [facility] 1.2.840.114 [id number] Univers 00:00:00 00:00:00 Secure [facility] Vijay HEALTH 350.1.13.10 ity of [place] 4.2.7.2.686 [place] as TOÑO?BLEA [phone] [facility] [address] MEDICAL OFFICE [facility] 2021-09-25 2021-09-25 Urgent Flaco Boyd [facility] 1.2.840. 114 [id number] Univers 10:20:00 11:10:42 Care [facility] 350.1.13.10 ity of [place] 4.2.7.2.686 [place] TOÑO?BLEA [phone] [facility] [address] MEDICAL OFFICE BUILDING 2021-09-25 2021-09-25 Outpatient R [facility]IVER [facility] [id number] Univers 10:20:00 11:10:42 FLACO fitzpatrick [facility] 2021-09-25 2021-09-25 Outpatient R [facility]IVER [facility] [id number] Univers 10:20:00 10:20:00 FLACO davis [facility] 2021-09-25 2021-09-25 Outpatient R PRASANNA [facility]ARGAS [facility] [id number] Univers 10:00:00 10:00:00 ity of [facility] 2021-09-25 2021-09-25 Telephone Oliver [facility] 1.2.840.114 [id number] Univers 00:00:00 00:00:00 [facility] 350.1.13.10 i ty of [place] 4.2.7.2.686 [place] TOÑO?BLEA [phone] In dicaliyah MINOREY [address] MEDICAL OFFICE [facility] 2021-09-25 2021-09-25 Patient Prasanna Vargas [facility] 1.2.335.497 [id number] Univers 00:00:00 00:00:00 Secure Msg [facility] 350.1.13.10 ity of [place].2.7.2.[place] PROFESS[place] [phone] In dicaliyah 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 4.2.7.2.686 [place] [phone] [address] 2021-09-15 2021-09-15 Patient Robb [facility] 1.2.840.114 [id number] Univers 00:00:00 00:00:00 Secure Msg Kendal HEALTH 350.1.13.10 ity of [place] 4.2.7.2.686 [place] TOÑO?BLEA [phone] In dicaliyah IVÁNMARY [address] MEDICAL OFFICE [facility] 2021-09-15 2021-09-15 Patient Robb [facility] 1.2.840.114 [id number] Univers 00:00:00 00:00:00 Secure Msg Kendal Amaral HEALTH 350.1.13.10 [facility] 4.2.7.2.686 [place] TOÑO?BLEA [phone] [address] MEDICAL OFFICE [facility] 2021-09-15 2021-09-15 Patient Robb [facility] 1.2.840.114 [id number] Univers 00:00:00 00:00:00 Secure Msg Kendal Amaral HEALTH 350.1.13.10 ity [facility] 4.2.7.2.686 [place] TOÑO?BLEA [phone] [address] OFFICE [facility] 2021-09-14 2021-09-14 Patient Juan [facility] 1.2.840.114 [id number] Univers 00:00:00 00:00:00 Secure Msg Vijay [facility] 350.1.13.10 ity of [place] 4.2.7.2.686 [place] as TOÑO?BLEA [phone] [address] OFFICE [facility] 2021-09-12 2021-09-12 Outpatient Farzana MIXON [facility] [id number] Univers 10:30:00 10:30:00 CELINA lechuga [facility] 2021-09-12 2021-09-12 Outpatient Farzana MIXON [facility] [id number] Univers 10:30:00 10:30:00 CELINA lechuga [facility] 2021-09-12 2021-09-12 Patient Meet [facility] 1.2.840.114 [id number] Univers 00:00:00 00:00:00 Secure Msg Daniel OLSENPEC 350.1.13.10 ity of [place]2.7.2.686 [place] [facility] [phone] [facility] AND [address] [facility] 2021-09-12 2021-09-12 Orders Doctor JORDAN 1.2.840.114 [id number] Univers 00:00:00 00:00:00 Only Unassigned, YAZMIN 350.1.13.10 ity of [place] [facility] 4.2.7.2.686 [place] as [phone] [facility] [address] 2021-09-12 2021-09-12 Patient Juan [facility] 1.2.840.114 [id number] Univers 00:00:00 00:00:00 Secure Msg Vijay HEALTH 350.1.13.10 ity of [place] 4.2.7.2.686 [place] TOÑO?BLEA [phone] In whit [place] [address] MEDICAL OFFICE [facility] 2021-09-05 2021-09-05 Patient Juan [facility] 1.2.840.114 [id number] Univers 00:00:00 00:00:00 Secure Msg Vijay HEALTH 350.1.13.10 ity of [place] 4.2.7.2.686 [place] TOÑO?BLEA [phone] In whit [place] [address] MEDICAL OFFICE [facility] 2021-09-04 2021-09-04 Patient Juan [facility] 1.2.840.114 [id number] Univers 00:00:00 00:00:00 Secure Msg Vijay HEALTH 350.1.13.10 ity of [place] 4.2.7.2.686 [place] as TOÑO?BLEA [phone] In whit [place] 044 [facility] OFFICE [facility] 2021-08-25 2021-08-25 Telephone Aditi [facility] 1.2.840.114 [id number] Univers 00:00:00 00:00:00 Dania L HEALTH 350.1.13.10 it y of [place] 4.2.7.2.686 [place] as TOÑO?BLEA [phone] In whit [place] [address] MEDICAL OFFICE [facility] 2021-08-25 2021-08-25 Patient Juan [facility] 1.2.840.114 [id number] Univers 00:00:00 00:00:00 Secure Msg Vijay HEALTH 350.1.13.10 ity of [place] 4.2.7.2.686 [place] TOÑO?BLEA [phone] In whit [place] [address] MEDICAL OFFICE [facility] 2021-08-24 2021-08-24 Telephone Juan [facility] 1.2.095.001 [id number] Univers 00:00:00 00:00:00 Vijay HEALTH 350.1.13.10 it y of [place] 4.2.7.2.686 [place] as TOÑO?BLEA [phone] In whit [address] MEDICAL OFFICE BUILDING 2021-08-24 2021-08-24 Patient Juan [facility] 1.2.840.114 [id number] Univers 00:00:00 00:00:00 Secure Msg Vijay HEALTH 350.1.13.10 ity of [place] 4.2.7.2.686 [place] TOÑO?BLEA [phone] [facility] [address] MEDICAL OFFICE [facility] 2021-08-23 2021-08-23 Patient Juan [facility] 1.2.840.114 [id number] Univers 00:00:00 00:00:00 Secure Msg Vijay HEALTH 350.1.13.10 ity of [place] 4.2.7.2.686 [place] as TOÑO?BLEA [phone] [address] MEDICAL OFFICE [facility] 2021-08-23 2021-08-23 Telephone [facility] 1.2.005.482 [id number] Univers 00:00:00 00:00:00 Vijay HEALTH 350.1.13.10 it y of [place] 4.2.7.2.686 [place] as TOÑO?BLEA [phone] [address] OFFICE [facility] 2021-08-22 2021-08-22 Telephone [facility] 1.2.310.491 [id number] Univers 00:00:00 00:00:00 Vijay HEALTH 350.1.13.10 it y of [place] 4.2.7.2.686 [place] as TOÑO?BLEA [phone] [address] MEDICAL OFFICE [facility] 2021-08-22 2021-08-22 Patient Jaja [facility] 1.2.840.114 [id number] Univers 00:00:00 00:00:00 Secure Msg Hallie HEALTH 350.1.13.10 ity of [place] 4.2.7.2.686 [place] as TOÑO?BLEA [phone] [address] MEDICAL OFFICE BUILDING 2021-08-18 2021-08-18 Telephone Juan [facility] 1.2.886.762 [id number] Univers 00:00:00 00:00:00 Vijay HEALTH 350.1.13.10 it y of [place] 4.2.7.2.686 [place] as TOÑO?BLEA [phone] In whit [place] [address] MEDICAL OFFICE [facility] 2021-08-17 2021-08-17 Outpatient Farzana MIXON [facility] [id number] Univers 09:00:00 09:00:00 CELINA hirenchino [facility] 2021-08-17 2021-08-17 Out[facility] [id number] Univers 09:00:00 09:00:00 CELINA hirenchino [facility] 2021-08-16 2021-08-16 [facility] 1.2.840.114 [id number] Univers 00:00:00 00:00:00 Secure Msg Vijay HEALTH 350.1.13.10 [facility]y [facility] 4.2.7.2.686 [place] as TOÑO?BLEA [phone] In whit [place] 044 [facility] OFFICE [facility] 2021-08-15 2021-08-15 Office [facility] 1.2.840.114 [id number] Univers 15:30:00 16:16:42 Visit Adán Jones HEALTH 350.1.13.10 it y of [place] 4.2.7.2.686 [place] as TOÑO?BLEA [id number] In alessandraaliyah [place] [address] MEDICAL OFFICE [facility] 2021-08-15 2021-08-15 Outpatient Farzana KIM [facility] [id number] Univers 15:30:00 16:16:42 ADÁN ity [facility] 2021-08-15 2021-08-15 Outpatient Farzana KIM [facility] [id number] Univers 15:30:00 15:30:00 ADÁN ity [facility] 2021-08-15 2021-08-15 Outpatient Farzana KIM [facility] [id number] Univers 15:30:00 15:30:00 [facility] 2021-08-15 2021-08-15 Outpatient Farzana KIM [facility] [id number] Univers 15:30:00 15:30:00 ADÁN lechuga [facility] 2021-08-15 2021-08-15 Emergency Aj SAMAYOA [facility] ERT [id number] Univers 09:27:00 12:26:00 MAURA lechuga [facility] 2021-08-15 2021-08-15 Emergency Danita [facility] 1.2.719.266 [id number] Univers 09:27:00 12:26:00 Maura LAWSON 350.1.13.[address] [facility] 4.2.7.2.686 [facility] [phone] [place] [address] [place] 2021-08-15 2021-08-15 Emergency Aj SAMAYOA [facility] ERT [id number] Univers 09:27:00 12:26:00 MAURA lechuga [facility] 2021-08-14 2021-08-14 Outpatient R JUAN [facility] [id number] Univers 13:25:00 23:59:00 VIJAY lechuga [facility] 2021-08-14 2021-08-14 Outpatient R JUAN [facility] [id number] Univers 13:25:00 23:59:00 VIJAY lechuga [facility] 2021-08-14 2021-08-14 Outpatient R JUAN [facility] [id number] Univers 13:25:00 13:25:00 VIJAY lechuga [facility] 2021-08-14 2021-08-14 Outpatient R JUAN [facility] [id number] Univers 12:19:07 13:24:00 VIJAY lechuga [facility] 2021-08-14 2021-08-14 Outpatient R JUAN [facility] [id number] Univers 12:19:07 13:24:00 VIJAY lechuga [facility] 2021-08-14 2021-08-14 Medical Billing Manager Lab, Ang - Db [facility] 1.2.840.1 14 [id number] Univers 12:30:00 13:01:24 Visit Vijay Martinez 350.1.13.10 ity of [place] 4.2.7.2.686 Martin as TOÑO?BLEA [phone] [address] MEDICAL OFFICE BUILDING 2021-08-14 2021-08-14 Medical Billing Manager Lab, Ang - Db [facility] 1.2.840.1 14 [id number] Univers 12:30:00 12:45:00 Visit Vijay Martinez 350.1.13.10 ity of [place] 4.2.7.2.686 Martin as TOÑO?BLEA [phone] [address] OFFICE [facility] 2021-08-14 2021-08-14 Office Juan [facility] 1.2.840.114 [id number] Univers 11:30:00 12:31:12 Visit Vijay PETTY 350.1.13.10 it y of [place] 4.2.7.2.686 Martin as TOÑO?BLEA [phone] [address] 2021-08-14 2021-08-14 [facility] [id number] Univers 11:30:00 12:31:12 VIJAY lechuga [facility] 2021-08-14 2021-08-14 Patient Juan [facility] 1.2.840.114 [id number] Univers 00:00:00 00:00:00 Secure Msg Vijay HEALTH 350.1.13.10 [facility] 4.2.7.2.686 [place] as TOÑO?BLEA [id number] [address] OFFICE [facility] 2021-08-09 2021-08-09 Outpatient R JUDY [facility] [id number] Univers 14:45:00 14:45:00 ADÁN ity [facility] 2021-08-09 2021-08-09 [facility] 1.2.588.420 [id number] Univers 00:00:00 00:00:00 Vijay HEALTH 350.1.13.10 it y of [place] 4.2.7.2.686 [place] as TOÑO?BLEA [id number] [address] OFFICE [facility] 2021-08-08 2021-08-08 Outpatient R JUAN [facility] [id number] Univers 11:30:00 23:59:00 VIJAY ankush [facility] 2021-08-082021-08-08 Hospital [facility] 1.2.840.114 [id number] Univers 11:30:00 23:59:00 Encounter Vijay PETTY 350.1.13.10 ity of [place] 4.2.7.2.686 Martin as TOÑO?BLEA [phone] In alessandraaliyah IVÁNMARY 808 [facility] OFFICE [facility] 2021-08-08 2021-08-08 Outpatient R JUAN [facility] [id number] Univers 11:15:00 11:15:00 VIJAY lechuga [facility] 2021-08-08 2021-08-08 [facility] [id number] Univers 11:00:00 11:00:00 VIJAY lechuga [facility] 2021-08-08 2021-08-08 Patient Doctor JORDAN 1.2.840.114 [id number] Univers 00:00:00 00:00:00 Secure Msg Unassigned, [place] 350.1.13.10 ity of [facility] 4.2.7.2.686 Martin as [phone] [address] 2021-08-07 2021-08-07 Office [facility] 1.2.840.114 [id number] Univers 09:30:00 10:23:21 Visit Vijay PETTY 350.1.13.10 it y of [place] 4.2.7.2.686 Martin as TOÑO?BLEA [phone] In alessandraaliyah IVÁNMARY 044 [facility] OFFICE [facility] 2021-08-07 2021-08-07 Out[facility] [id number] Univers 09:30:00 10:23:21 VIJAY lechuga [facility] 2021-08-07 2021-08-07 Outpatient R VÍCTORKassandra [facility] [id number] Univers 09:30:00 09:30:00 VIJAY lechuga [facility] 2021-08-07 2021-08-07 [facility] 1.2.840.114 [id number] Univers 00:00:00 00:00:00 Secure Msg Vijay PETTY 350.1.13.10 ity of [place] 4.2.7.2.686 Martin as TOÑO?BLEA [phone] In whit [place] [address] [place] [address] MEDICAL OFFICE [facility] 2021-08-07 2021-08-07 Patient Juan [facility] 1.2.840.114 [id number] Univers 00:00:00 00:00:00 Secure Msg Vijay HEALTH 350.1.13.10 ity of [place] 4.2.7.2.686 Martin as TOÑO?BLEA [phone] In whit [address] MEDICAL OFFICE [facility] 2021-08-07 2021-08-07 Patient Apurva [facility] 1.2.840.114 [id number] Univers 00:00:00 00:00:00 Secure Msg Celina A FLACO 350.1.13.[address] [facility] 4.2.7.2.[place] [id number] [address] 2021-08-04 2021-08-04 Outpatient R SHADIA [facility] [id number] Univers 10:00:00 10:00:00 PETRA ity [facility] 2021-08-04 2021-08-04 Patient Juan [facility] 1.2.840.114 [id number] Univers 00:00:00 00:00:00 Secure Msg Vijay HEALTH 350.1.13.10 ity of [place] 4.2.7.2.686 Martin as TOÑO?BLEA [phone] [address] OFFICE [facility] 2021-08-03 2021-08-03 Office SOURAV Diaz .2.840.114 [id number] Univers 11:00:00 12:48:43 Visit Jayy Dowling 350.1.13.10 it y of [facility] 4.2.7.2.686 Martin as BANK [phone] [facility]. [address] 2021-08-03 2021-08-03 Outpatient R EMILY [facility] [id number] Univers 11:00:00 12:48:43 JAYY lechuga [facility] 2021-08-03 2021-08-03 Outpatient R EMILY [facility] [id number] Univers 11:00:00 11:00:00 JAYY [facility] 2021-08-03 2021-08-03 Patient [facility] 1.2.840.114 [id number] Univers 00:00:00 00:00:00 Secure Mslaila SAM 350.1.13.[address] [facility] 4.2.7.2.686 [place] [phone] [address] 2021-08-02 2021-08-02 Telephone [facility] 1.2.133.026 [id number] Univers 00:00:00 00:00:00 Vijay HEALTH 350.1.13.10 it y [facility] 4.2.7.2.686 Martin as TOÑO?BLEA [id number] [address] 2021-07-21 2021-07-21 Outpatient R MARY WYATT [facility] [id number] Univers 08:00:00 08:52:53 MARY WYATT [facility] 2021-07-17 2021-07-17 Outpatient Farzana MARTINEZ [facility] [id number] Univers 11:30:00 11:30:00 VIJAY [facility] 2021-06-19 2021-06-19 [facility] [id number] Univers 00:00:00 00:00:00 Vijay [facility] 350.1.13.10 it y of [place] 4.2.7.2.686 [place] TOÑO?BLEA [id number] [address] 2021-06-09 2021-06-09 Telephone [facility] [id number] Univers 00:00:00 00:00:00 Reji LULU 350.1.13.10 ity of [place] [id number] In whit [facility] 059 [facility] 2021-06-06 2021-06-06 Outpatient Farzana CARNES [facility] [id number] Univers 11:15:00 11:15:00 TETO [facility] 2021-06-06 2021-06-06 Outpatient R ADOLFOZAMZAM [facility] [id number] Univers 11:15:00 11:15:00 TETO lechuga [facility] 2021-06-02 2021-06-02 Outpatient R CRISTINA [facility] [id number] Univers 15:45:00 15:45:00 WONDIFUL ity o f [facility] 2021-05-31 2021-05-31 [facility] [id number] Univers 10:00:00 10:46:31 VIJAY lechuga [facility] 2021-05-31 2021-05-31 Office [facility] [id number] Univers 10:00:00 10:46:31 Visit Vijay HEALTH 350.1.13.10 it y of [place] 4.2.7.2.686 [place] TOÑO?BLEA [phone] [address] MEDICAL OFFICE [facility] 2021-05-31 2021-05-31 Outpatient R VÍCTORKassandra [facility] [id number] Univers 10:00:00 10:46:31 VIJAY lechuga [facility] 2021-05-31 2021-05-31 Orders Doctor JORDAN 1..840.114 [id number] Univers 00:00:00 00:00:00 Only Unassigned, YAZMIN 350.1.13.10 ity of [place] [facility] 4.2.7.2.686 [place] [id number] [address] 2021-05-26 2021-05-26 Telephone [facility] [id number] Univers 00:00:00 00:00:00 Skylar A HEALTH 350.1.13.10 i ty of [place] 4.2.7.2.686 [place] TOÑO?BLEA [id number] [address] MEDICAL OFFICE BUILDING 2021-05-26 2021-05-26 Patient Prasanna Vargas [facility] [facility] 1.2.738.851 [id number] Univers 00:00:00 00:00:00 Secure Msg Cam [place] 350.1.13.10 ity of [place] 4.2.7.2.[place] [phone] In dical NAL 134 [facility] 2021-05-25 2021-05-25 Telemedici [facility] 1.2.840.114 [id number] Univers 14:00:00 14:30:00 ne Visit Skylar Cannon [facility] 350.1.13.10 ity of [place] 4.2.7.2.686 Martin as TOÑO?BLEA [phone] In dical KNEY 044 [facility] 2021-05-25 2021-05-25 [facility] [id number] Univers 14:00:00 14:00:00 [facility] 2021-05-25 2021-05-25 [facility] [id number] Univers 14:00:00 14:00:00 SKYLAR [facility] 2021-05-24 2021-05-24 Telephone [facility] 1.2.703.120 [id number] Univers 00:00:00 00:00:00 Sendzohra [place] 350.1.13.10 ity of [place] 4.[place].7.2.[place] [phone] In dical NAL 059 [facility] 2021-05-23 2021-05-23 Outpatient R [facility] [id number] Univers 10:00:00 10:00:00 ity [facility] 2021-05-23 2021-05-23 Outpatient R [facility] [id number] Univers 10:00:00 10:00:00 ity [facility] 2021-05-16 2021-05-16 [facility] [id number] Univers 09:00:00 09:00:00 [facility]O [facility] 2021-05-12 2021-05-12 Orders Doctor ORTEGA 1.2.840.114 [id number] Univers 00:00:00 00:00:00 Only Unassigned, YAZMIN 350.1.13.10 ity of [place] [facility] 4.2.7.2.686 Martin as [phone] [address] 2021-05-10 2021-05-10 Outpatient R CRISTINA [facility] [id number] Univers 13:00:00 13:00:00 WONDIFUL ity o f [facility] 2021-05-10 2021-05-10 Outpatient R CRISTINA [facility] [id number] Univers 13:00:00 13:00:00 WONDIFUL ity o f [facility] 2021-05-09 2021-05-09 Telephone Alicai Prasanna [facility] 1.2.840.114 [id number] Univers 00:00:00 00:00:00 Cam LULU 350.1.13.10 i ty of [place].7.2.[place] [phone] In dicnc NAL 134 [facility] 2021-05-09 2021-05-09 Patient [facility] 1.2.840.114 [id number] Univers 00:00:00 00:00:00 Secure Msg Sendzohra K.HPilar [place] 350.1.13.10 ity of [facility] 4.2.7.2.[place] [phone] In dicnc NAL 9 [facility] 2021-05-08 2021-05-08 Out[facility] [id number] Univers 16:00:00 16:00:00 JEDAYANA lechuga [facility] 2021-05-08 2021-05-08 Outpatient R YASMEEN [facility] [id number] Univers 16:00:00 16:00:00 JE ity [facility] 2021-05-08 2021-05-08 Patient [facility] .2.840.114 [id number] Univers 00:00:00 00:00:00 Secure Msg Sendil K.H. LULU 350.1.13.10 ity of [place] 4.2.7.2.686 [place] [phone] In dical NAL 9 [facility] 2021-05-08 2021-05-08 Patient [facility] .2.840.114 [id number] Univers 00:00:00 00:00:00 Secure Msg Sendil K.[facility]. [place] 350.1.13.10 ity of [place] 4.2.7.2.686 [place] [phone] In dical NAL 059 [facility] 2021-05-03 2021-05-03 Outpatient R ARJUN [facility] [id number] Univers 11:15:36 23:59:00 REJI maradiagay o f [facility] 2021-05-03 2021-05-03 [facility] 1.2.840.114 [id number] Univers 11:15:36 23:59:00 Encounter Reji ANGLEDAYAMI 350.1.13.10 ity of [place] 4.2.7.2.686 [place] [phone] [facility] 846 [facility] 2021-05-03 2021-05-03 Telephone [facility] 1.2.840.114 [id number] Univers 00:00:00 00:00:00 Wondiful A HEALTH 350.1.13.10 [facility] 4.2.7.2.686 [place] as TOÑO?BLEA [phone] [address] OFFICE [facility] 2021-05-02 2021-05-02 Telephone [facility] 1.2.546.729 [id number] Univers 00:00:00 00:00:00 Rad Cuello [place] 350.1.13.10 ity of [facility] 4.2.[place].2.[place] [phone] [facility] NAL 059 [facility] 2021-05-02 2021-05-02 Patient [facility] 1.2.840.114 [id number] Univers 00:00:00 00:00:00 Secure Msg Wondiful A HEALTH 350.1.13.10 ity of [place] 4.2.7.2.686 [place] as TOÑO?BLEA [phone] [address] MEDICAL OFFICE [facility] 2021-05-02 2021-05-02 Telephone [facility] 1.2.840.114 [id number] Univers 00:00:00 00:00:00 Wondiful A HEALTH 350.1.13.10 ity of [place] 4.2.7.2.686 [place] as TOÑO?BLEA [phone] In dical IVÁNEY [address] MEDICAL OFFICE [facility] 2021-05-02 2021-05-02 Patient Ponce [facility] 1.2.840.114 [id number] Univers 00:00:00 00:00:00 Secure Msg Rad BenoitBenjamin [place] 350.1.13.10 ity of [place] 4.2.7.2.[place] [facility] [phone] In dical NAL 059 [facility] 2021-04-27 2021-04-27 Emergency X [facility] ERT [id number] Univers 14:24:00 15:49:00 MAGGIE ity [facility] 2021-04-27 2021-04-27 Emergency [facility] 1.2.840.114 [id number] Univers 14:24:00 15:49:00 Maggie LAW[place] 350.1.13.10 ity of [place] 4.2.7.2.686 [place] [phone] [facility] [address] 2021-04-27 2021-04-27 Laboratory Only, Ang Db Test [facility] 1.2.8 40.114 [id number] Univers 11:15:00 11:30:00 Only Unknown, Attending HEALTH 350.1.13.10 ity of [place] 4.2.7.2.686 [place] TOÑO?BLEA [phone] In dicaliyah [place] [address] [facility] OFFICE [facility] 2021-04-27 2021-04-27 Outpatient R SIL [facility] [id number] Univers 11:15:00 11:15:00 THONY lechuga [facility] 2021-04-27 2021-04-27 Orders Doctor ORTEGA 1.2.840.114 [id number] Univers 00:00:00 00:00:00 Only Unassigned, YAZMIN 350.1.13.10 ity of [place] [facility] 4.2.7.2.686 [place] as [phone] [facility] [address] 2021-04-20 2021-04-20 Outpatient R JUSTINE [facility] [id number] Univers 15:00:00 15:00:00 SCOTT [facility] 2021-04-13 2021-04-13 Patient Cristina [facility] 1.2.840.114 [id number] Univers 00:00:00 00:00:00 Secure Msg Wondiful A HEALTH 350.1.13.10 ity of [place] 4.2.7.2.686 Martin as TOÑO?BLEA [phone] [address] OFFICE [facility] 2021-04-12 2021-04-12 Telephone Cristina [facility] 1.2.840.114 [id number] Univers 00:00:00 00:00:00 Wondiful A HEALTH 350.1.13.10 [facility] 4.2.7.2.686 [place] as TOÑO?BLEA [phone] [address] 2021-03-27 2021-03-27 Telephone Prasanna Vargas [facility] 1.2.840.114 [id number] Univers 00:00:00 00:00:00 Cam [place] 350.1.13.10 i ty of [place] 4.[place].2.686 [place] [phone] [address] 2021-03-23 2021-03-23 Outpatient R KAVYA [facility] [id number] Univers 13:30:00 13:30:00 CHILVANA ity o f [facility] 2021-03-23 2021-03-23 Outpatient R KAVYA [facility] [id number] Univers 13:30:00 13:30:00 CHILVANA ity o f [facility] 2021-03-22 2021-03-22 Outpatient R NEHEMIAH MEEKSINEz [facility] [id number] Univers 09:20:00 09:20:00 ADITYA MEEKS [facility] 2021-03-22 2021-03-22 Out[facility] R [facility] [id number] Univers 09:20:00 09:20:00 ADITYA MEEKS [facility] 2021-03-20 2021-03-20 [facility] [id number] Univers 00:00:00 00:00:00 WONDIFUL ity o f [facility] 2021-03-18 2021-03-18 Case [facility] 1.2.840.114 [id number] Univers 00:00:00 00:00:00 Management Wondiful A HEALTH 350.1.13.10 ity of [place] 4.2.7.2.686 [place] as TOÑO?BLEA [phone] [facility] [address] MEDICAL OFFICE [facility] 2021-03-16 2021-03-16 Medical Billing Manager Lab, Ang - Db [facility] 1.2.840.1 14 [id number] Univers 11:16:07 11:31:07 Visit Claudette Evans A HEALTH 350.1.13.1 0 ity of [place] 4.2.7.2.686 [place] as TOÑO?BLEA [phone] [facility] MINOR [address] [facility] OFFICE [facility] 2021-03-16 2021-03-16 Out[facility] [id number] Univers 11:30:00 11:30:00 WONDIFUL ity o f [facility] 2021-03-16 2021-03-16 Outpatient [facility] [id number] Univers 11:00:00 11:14:45 WONDIFUL ity o f [facility] 2021-03-16 2021-03-16 Office [facility] 1.2.840.114 [id number] Univers 10:00:58 11:14:45 Visit Wondiful A HEALTH 350.1.13.10 ity of [place] 4.2.7.2.686 [place] as TOÑO?BLEA [phone] In whit [place] [address] [place] [address] OFFICE [facility] 2021-03-16 2021-03-16 Patient [facility] 1.2.840.114 [id number] Univers 00:00:00 00:00:00 Secure Msg Wondiful A HEALTH 350.1.13.10 ity of [place] 4.2.7.2.686 [place] as TOÑO?BLEA [phone] [facility] [address] MEDICAL OFFICE [facility] 2021-03-02 2021-03-02 Out[facility] [id number] Univers 16:15:00 16:15:00 WONDIFUL ity o f [facility] 2021-02-28 2021-02-28 Outpatient R MITCHELL [facility] [id number] Univers 18:30:00 18:30:00 ILEANA lechuga [facility] 2021-02-28 2021-02-28 Telephone [facility] 1.2.840.114 [id number] Univers 00:00:00 00:00:00 Wondiful A Health 350.1.13.10 ity of [place] 4.2.7.2.686 [place] as Toño?Blea [phone] [facility] [address] Medical Office [facility] 2021-02-27 2021-02-27 Outpatient R STEPHANY [facility] [id number] Univers 09:00:00 09:00:00 AMELIA lechuga [facility] 2021-02-23 2021-02-23 Telephone [facility] 1.2.840.114 [id number] Univers 00:00:00 00:00:00 Wondiful A Health 350.1.13.10 ity of [place] 4.2.7.2.686 [place] as Toño?Blea [phone] [facility] 044 [facility] 2021-02-10 2021-02-10 Emergency Dev, K [facility] 1.2.840.114 [id number] Univers 18:12:00 23:39:00 Sharlene [place] 350.1.13.10 i ty of [place] 4.2.7.2.686 [place] [phone] [facility] [address] 2021-02-09 2021-02-09 [facility] 1.2.804.662 [id number] Univers 13:40:00 23:59:00 Encounter Wondiful A Health 350.1.13.10 ity of [place] 4.2.7.2.686 [place] as Toño?Blea [phone] [facility] miki [address] Medical Office [facility] 2021-02-09 2021-02-09 Medical Billing Manager Lab, Ang - Db [facility] 1.2.840.1 14 [id number] Univers 13:49:05 14:04:05 Visit Claudette Evans Health 350.1.13.1 0 ity of [place] 4.2.7.2.686 [place] as Toño?Blea [phone] In whit [place] [address] Medical Office [facility] 2021-02-09 2021-02-09 Office [facility] 1.2.840.114 [id number] Univers 12:23:13 13:47:12 Visit Claudette Cannon Health 350.1.13.10 ity of [place] 4.2.7.2.686 [place] as Toño?Blea [phone] [address] 2021-02-09 2021-02-09 Outpatient R CRISTINA [facility] [id number] Univers 13:00:00 13:00:00 WONDIFUL ity o f [facility] 2021-02-08 2021-02-08 Outpatient R ADITYA MEEKS [facility] [id number] Univers 10:20:00 10:20:00 ADITYA MEEKS [facility] 2021-02-02 2021-02-02 Outpatient R YANELI [facility] [id number] Univers 10:30:00 10:30:00 SKYLAR chino [facility] 2021-02-02 2021-02-02 Telephone [facility] 1.2.840.114 [id number] Univers 00:00:00 00:00:00 Claudette Cannon Health 350.1.13.10 ity of [place] 4.2.7.2.686 [place] as Toño?Blea [phone] [address] Office [facility] 2021-02-01 2021-02-01 Outpatient R YANELI [facility] [id number] Univers 08:30:00 08:30:00 SKYLAR [facility] 2021-01-31 2021-01-31 Urgent [facility] 1.2.840.114 [id number] Univers 18:44:04 19:41:26 Care [facility] 350.1.13.10 i ty of [place] 4.2.7.2.686 [place] as Toño?Blea [phone] [facility] [place] [address] Medical Office [facility] 2021-01-31 2021-01-31 Outpatient R OLIVER [facility] [id number] Univers 19:00:00 19:00:00 FLACO ity o f [facility] 2021-01-31 2021-01-31 Telephone Cristina [facility] 1.2.840.114 [id number] Univers 00:00:00 00:00:00 Wondiful A Health 350.1.13.10 ity of [place] 4.2.7.2.686 [place] as Toño?Blea [phone] [facility] 044 [facility] Office [facility] 2021-01-30 2021-01-30 Telephone Ponce [facility] 1.2.697.610 [id number] Univers 00:00:00 00:00:00 Sendil Cuate [place] 350.1.13.10 ity of [place].2.[place].2.686 [place] [phone] In alessandranc nal 059 [facility] 2021-01-26 2021-01-26 Outpatient R PONCE [facility] [id number] Univers 14:00:00 14:00:00 [facility] 2021-01-25 2021-01-25 Outpatient R [facility] [id number] Univers 15:00:00 15:00:00 ity [facility] 2021-01-20 2021-01-20 Telemedici [facility]CR[facility] 1.2.840.114 [id number] Univers 16:51:22 17:12:41 ne Visit Skylar A Health 350.1.13.10 ity of [place] 4.2.7.2.686 [place] as Toño?Blea [phone] [facility] [address] [facility] Office [facility] 2021-01-20 2021-01-20 Out[facility] [id number] Univers 16:30:00 16:30:00 SKYLAR ity [facility] 2021-01-192021-01-19 Outpatient Farzana [facility] [id number] Univers 10:15:00 10:15:00 KAYLEY [facility] 2021-01-14 2021-01-14 JORDAN Guzman 1.2.840.114 [id number] Univers 00:00:00 00:00:00 Management Kassandra ARCE 350.1.13.10 ity [facility] 4.2.7.2.686 [place] as [phone] [facility] [address] 2021-01-12 2021-01-[address] [facility] 1.2.933.368 [id number] Univers 16:10:00 19:45:00 Karin Lawson 350.1.13.10 i ty [facility] 4.2.7.2.686 [place] [phone] [facility] [address] 2021-01-12 2021-01-12 Outpatient Farzana [facility] [id number] Univers 15:20:00 15:20:00 ILEANA [facility] 2021-01-12 2021-01-12 Urgent Thony Johnson [facility] 1.2.840.114 [id number] Univers 14:46:57 15:06:57 [facility] 350.1.13.10 ity [facility] 4.2.7.2.686 [place] as Toño?Blea [phone] In [facility] [address] Medical Office Building 2020-12-26 2020-12-26 Outpatient Farzana [facility] [id number] Univers 15:30:00 16:13:32 [facility] 2020-12-26 2020-12-26 Office [facility] 1.2.840.114 [id number] Univers 15:30:00 16:13:32 Visit Rad LAWSON 350.1.13.[address] [facility] 4.2.7.2.[place] [facility] [phone] In whit [facility] [address] BUILDING 2020-12-26 2020-12-26 Office [facility] 1.2.840.114 [id number] Univers 15:00:32 16:13:32 Visit Sendzohra [place] 350.1.13.10 [facility] 4.2.7.2.686 [facility] Professio [phone] In dical nal [address] [facility] 2020-12-26 2020-12-26 Outpatient R PONCE, [facility] [id number] Univers 15:30:00 15:30:00 SENDIL ity [facility] 2020-11-22 2020-11-22 Outpatient R APURVA, [facility] [id number] Univers 11:00:00 11:00:00 CELINA ankush [facility] 2020-11-10 2020-11-10 Urgent Alissa Collins [facility] 1.2.840.114 [id number] 18:42:46 19:53:43 [facility] 350.1.13.10 [place] 4.2.7.2.686 Professio [phone] nal [address] 2020-11-10 2020-11-10 Outpatient R [facility] [id number] Univers 19:00:00 19:00:00 ity [facility] 2020-10-31 2020-10-31 Emergency Kaycee Méndez [facility] 1.2.840.114 [id number] 18:52:00 22:15:00 Sharlene [place] 350.1.13.10 [place] 4.2.7.2.686 [place] [phone] [id number] 2020-10-31 2020-10-31 Outpatient [facility] [id number] Univers 19:00:00 19:00:00 BEBA hirenchino o f [facility] 2020-10-31 2020-10-31 Orders Doctor JORDAN 1.2.840.114 [id number] 00:00:00 00:00:00 Only Unassigned, YAZMIN 350.1.13.10 [place] [facility] 4.2.7.2.686 [id number] 2020-10-20 2020-10-20 Emergency Kaycee Méndez [facility] 1.2.840.114 [id number] 14:02:00 17:13:00 Sharlene [place] 350.1.13.10 [place] 4.2.7.2.686 [place] [phone] [id number] 2020-10-14 2020-10-14 Hospital Prasanna Vargas [facility] 1.2.840.114 [id number] 10:00:00 23:59:00 Encounter Jm [place] 350.1.13.10 [place] 4.2.7.2.686 [place] [id number] [id number] 2020-10-14 2020-10-14 Outpatient Farzana MIXON [facility] [id number] Univers 13:30:00 13:30:00 CELINA [facility] 2020-10-09 2020-10-09 [facility] 1.2.498.624 [id number] 12:00:00 15:57:00 Anna Lawson 350.1.13.10 [place] 4.2.7.2.686 [place] [phone] 084 2020-10-06 2020-10-06 Office [facility] 1.2.460.375 [id number] 08:53:00 09:46:44 Visit Jm [place] 350.1.13.10 [place] 4.2.7.2.[address] Profess [id number] 2020-10-06 2020-10-06 Outpatient Farzana VARGAS PRASANNA [facility] [id number] Univers 09:30:00 09:30:00 [facility] 2020-10-04 2020-10-04 Outpatient Farzana MIXON [facility] [id number] Univers 14:00:00 14:00:00 CELINA [facility] 2020-09-30 2020-09-30 Outpatient Farzana MIXON [facility] [id number] Univers 10:30:00 10:30:00 CELINA [facility] 2020-09-29 2020-09-29 Outpatient Farzana SHAY [facility] [id number] Univers 13:45:00 13:45:00 PREET [facility] 2020-09-06 2020-09-06 Outpatient Farzana VARGAS [facility] [id number] Univers 15:30:00 15:30:00 ity [facility] 2020-09-02 2020-09-02 Outpatient MARY QUIROZ [facility] [id number] Univers 15:40:00 15:40:00 MARY WYATT [facility] 2020-08-31 2020-08-31 Outpatient Farzana SERRA [facility] [id number] Univers 10:30:00 10:30:00 [facility]IL [facility] 2020-08-18 2020-08-18 Outpatient R VARGAS PRASANNA [facility] [id number] Univers 09:30:00 09:30:00 ity [facility] 2020-08-11 2020-08-11 Outpatient Farzana VARGAS PRASANNA [facility] [id number] Univers 13:30:00 13:30:00 [facility] 2020-08-04 2020-08-04 Outpatient Farzana FLETCHER [facility] [id number] Univers 14:00:00 14:00:00 SCOTT [facility] 2020-07-28 2020-07-28 Outpatient Farzana SERRA [facility] [id number] Univers 10:30:00 10:30:00 SENDIL [facility] 2020-06-30 2020-06-30 Outpatient Farzana EVANS [facility] [id number] Univers 16:15:00 16:15:00 WONDIFUL ity o f [facility] 2020-06-17 2020-06-17 Outpatient MARY QUIROZ [facility] [id number] Univers 15:00:00 15:00:00 MARY WYATT [facility] 2020-06-16 2020-06-16 Outpatient Farzana SERRA [facility] [id number] Univers 15:30:00 15:30:00 [facility]IL [facility] 2020-06-09 2020-06-09 Outpatient NI YUNG [facility] [id number] Univers 12:30:00 12:30:00 ity [facility] 2020-06-08 2020-06-08 Outpatient IN YUNG [facility] [id number] Univers 08:00:00 08:00:00 [facility] 2020-06-02 2020-06-02 Outpatient R PONCE [facility] [id number] Univers 09:00:00 09:00:00 SENDIL [facility] 2020-05-28 2020-05-28 Outpatient R NATASHA [facility] [id number] Univers 10:00:00 10:00:00 BEBA ity o f [facility] 2020-05-24 2020-05-24 Outpatient R NI DISLA [facility] [id number] Univers 10:00:00 10:00:00 [facility] 2020-05-19 2020-05-19 Outpatient R OSITO SANTIAGO [facility] [id number] Univers 16:30:00 16:30:00 [facility] 2020-05-17 2020-05-17 Outpatient R MARY WYATT [facility] [id number] Univers 13:00:00 13:00:00 MARY WYATT [facility] 2020-05-16 2020-05-16 Outpatient R CRISTINA [facility] [id number] Univers 16:00:00 16:00:00 WONDIFUL ity o f [facility] 2020-05-03 2020-05-03 Outpatient R CRISTINA [facility] [id number] Univers 15:00:00 15:00:00 WONDIFUL ity o f [facility] 2020-04-30 2020-04-30 Outpatient R JASPAL [facility] [id number] Univers 10:20:00 10:20:00 [facility]ES [facility] 2020-04-30 2020-04-30 Outpatient R JASPAL [facility] [id number] Univers 10:15:00 10:15:00 ROSALES [facility] 2020-04-28 2020-04-28 Outpatient R OSITO SANTIAGO [facility] [id number] Univers 14:00:00 14:00:00 ity [facility] 2020-04-25 2020-04-25 Outpatient R CRI[facility]INA [facility] [id number] Univers 16:15:00 16:15:00 WONDIFUL ity o f [facility] 2020-04-18 2020-04-18 Outpatient R [facility]ITO [facility] [id number] Univers 10:00:00 [facility]00[facility] 2020-04-15 Outpatient R SERRA [facility] [id number] Univers 10:30:00 10:30:00 SENDIL [facility] 2020-03-17 2020-03-17 Outpatient R DEYVI [facility] [id number] Univers 16:15[facility]00 [facility] 2020-03-04 Ref[facility] [id number] 00:00:00 00:00:00 MULTISPEC [id number] IALTY [id number] CENTER [id number] [facility] 2020-02-25 2020-02-25 Outpatient R [facility]ACOBR [facility] [id number] Univers 16:00:00 [facility]00[facility] R DEYVI [facility] [id number] Univers 14:00:00 14:00:00 TETO [facility] 2020-02-08 2020-02-08 Outpatient R VARGAS PRASANNA [facility] [id number] Univers 10:30:00 10:30:00 [facility] 2020-[facility]04 2020-02-04 Outpatient R [facility] [id number] Univers 13:30:00 13:30:[facility] 2020-01[facility] 2020-01-23 [facility] [id number] Univers 10:15:00 10:15:00 [facility] 2020-01-21 2020-01-21 Outpatient R [facility]O [facility] [id number] Univers 13:00:00 13[facility]00[facility] 2020-01-14 Outpatient R CORETTA OSITO [facility] [id number] Univers 16:00:00 16:00:00 ity [facility] 2020-01-05 2020-01-05 Outpatient R PRASANNA VARGAS [facility] [id number] Univers 13:45:00 13:45:00 [facility] 2019-12-03 2019-12-03 Outpatient R AKINSIPE, [facility] [id number] Univers 10:30:00 10:30:00 CRICKET ity o f [facility] 2019-11-27 2019-11-27 Outpatient R VANAPHAN, [facility] [id number] Univers 11:00:00 11:00:00 [facility] 2019-11-25 2019-11-25 Outpatient R VANAPHAN, [facility] [id number] Univers 08:00:00 08:00:00 [facility] 2019-11-18 2019-11-18 Outpatient R VANAPHAN, [facility] [id number] Univers 10:00:00 10:00:00 [facility] 2019-09-02 2019-09-02 Outpatient R AKINSIPE, [facility] [id number] Univers 11:00:00 11:00:00 CRICKET ity o f [facility] 2019-08-14 2019-08-14 Outpatient R VANAPHAN, [facility] [id number] Univers 10:15:00 10:15:00 [facility] 2019-08-13 2019-08-13 Outpatient R AKINSIPE, [facility] [id number] Univers 11:00:00 11:00:00 CRICKET ity o f [facility] 2019-08-12 2019-08-12 Outpatient R [facility] [id number] Univers 09:00:00 09:00:00 [facility] 2019-07-20 2019-07-20 Outpatient P PRASANNA VARGAS [facility] CHRIS [id number] Univers 16:06:00 16:06:00 [facility] 2019-07-20 2019-07-20 Outpatient R AKINSIPE, [facility] [id number] Univers 08:15:00 08:15:00 CRICKET ity o f [facility] 2019-07-13 2019-07-13 Outpatient R AKINSIPE, [facility] [id number] Univers 08:00:00 08:00:00 CRICKET ity o f [facility] 2019-07-12 2019-07-12 Outpatient P PRASANNA VARGAS [facility] CH[facility] [id number] Univers 13:39:00 13:39:00 [facility] 2019-07-06 2019-07-06 [facility] [id number] Univers 13:00:00 13:00:00 CRICKET ity o f [facility] 2019-06-13 2019-06-13 Emergency X MARGARITA [facility] ERT [id number] Univers 10:40:46 12:35:00 WAKILI [facility] 2019-05-13 2019-05-14 Outpatient P PRASANNA VARGAS [facility] CH[facility] [id number] Univers 23:07:00 09:15:00 [facility] Results Test Description Test Time Test Comments Results Result Comments Source LIPASE 2022-01-18 12:45:21 Test Item Value Reference Range Interpretation Comme nts LIPASE (test code = 8436739238) 41 U/L 0-220 Lab Interpretation (test code = 96152-1) Normal [facility] [id number] 10:57:00 Test Item Value Reference Range Interpretation Comments POCT PREG (test code = 1605) Negative On board controls acceptable with Present C Line (test code = 3574) POCT PREG LOT # (test code = 3575) [id number] POCT PREG TEST DATE (test 03/12/2023 code = 3576) Lab Interpretation (test code = Normal 78877-3) [facility] (NA, K, CL, CO2, GLUCOSE, BUN, CREATININE, CA)2022-01-18 10:56:51 Test Item Value Reference Range Interpretation Comments NA (test code = 137 mmol/L 135-145 2905265303) K (test code = 4.6 mmol/L 3.5-5 Slight 4317113586) hemolysis CL (test code = 108 mmol/L 98-108 5721129809) CO2 TOTAL (test code 22 mmol/L 23-31 L = 6753779191) AGAP (test code = 2-16 8354506868) BUN (test code = 11 mg/dL 7-23 Slight 7345838799) hemolysis GLUCOSE (test code = 83 mg/dL 70-110 0764810066) CREATININE (test code 0.68 mg/dL 0.5-1.04 = 1974052528) CALCIUM (test code = 8.8 mg/dL 8.6-10.6 2966089207) eGFR (test code = mL/min/1.73m2 0464364075) WESLEY (test code = WESLEY) Association of [...] tests). Lab Interpretation Abnormal (test code = 61990-4) [facility] PAN[facility] (10062) (ALB,T.PRO,BILI T,BU/BC,ALT,AST,ALK PHOS)2022-01-18 10:56:51 Test Item Value Reference Range Interpretation Comments TOTAL BILI (test code = 7328979713) 0.6 mg/dL 0.1-1.1 BILI UNCON (test code = 2809353893) 0.1 mg/dL 0.1-1.1 BILI CONJ (test code = 6121406384) 0.0 mg/dL 0-0.3 T PROTEIN (test code = 7600495863) 8.6 g/dL 6.3-8.2 H ALBUMIN (test code = 1648605694) 5.1 g/dL 3.5-5 H ALK PHOS (test code = 9814877851) 79 U/L 34-122 ALTv (test code = 1742-6) 117 U/L 5-35 H AST(SGOT) (test code = 0381345365) 163 U/L 13-40 H Lab Interpretation (test code = Abnormal 14135-3) [facility] TEST, [id number] 10:54:25 Test Item Value Reference Range Interpretation Comments PREG SERUM (test code Negative = 5745901861) WESLEY (test code = WESLEY) Less than 10 IU/L. ?If low titer or ectopic is suspected, resubmit specimen in 48-72 hours. [facility] CenterCB WITH [id number] 10:40:49 Test Item Value Reference Range Interpretation Comments WBC (test code = See_Comment [Automated 6909-2) message] The sy stem which generated this result transmitted reference range : 4.30 - 11.10 10*3/?L. The reference range was not used to interpret this result as normal/abnormal . RBC (test code = See_Comment [Automated 925-8) message] The sy stem which generated this [...] RDW-SD (test code = 45.3 fL 39-49.9 24595-9) RDW-CV (test code = 14.5 % 12-15.5 788-0) PLT (test code = See_Comment [Automated 777-3) message] The sy stem which generated this result transmitted reference range : 166 - 358 10*3/ ?L. The reference r david was not used to interpret this result as normal/abnormal . MPV (test code = 9.5 fL 9.5-12.9 67671-7) NRBC/100 WBC (test See_Comment [Automat ed code = 1063186149) message] The system which generated this result transmitted reference range : 0.0 - 10.0 /100 WBCs. The refer ence range was not u sed to interpret th is result as normal/abnormal . NRBC x10^3 (test code See_Comment [Auto mated = 2935916661) message] The s ystem which generated this result transmitted reference range : 10*3/?L. The reference range was not used to interpret this result as normal/abnormal . GRAN MAT (NEUT) % 47.6 % (test code = 770-8) IMM GRAN % (test code 0.60 % = 8869959708) LYMPH % (test code = 39.9 % 736-9) MONO % (test code = 5.9 % 5905-5) EOS % (test code = 5.3 % 713-8) BASO % (test code = 0.7 % 706-2) GRAN MAT x10^3(ANC) 4.45 10*3/uL 1.88-7.09 (test code = 7245408751) IMM GRAN x10^3 (test 0.06 10*3/uL 0-0.06 code = 5681135425) LYMPH x10^3 (test code 3.74 10*3/uL 1.32-3.29 H = 731-0) MONO x10^3 (test code 0.55 10*3/uL 0.33-0.92 = 742-7) EOS x10^3 (test code = 0.50 10*3/uL 0.03-0.39 H 711-2) BASO x10^3 (test code 0.07 10*3/uL 0.01-0.07 = 704-7) Lab Interpretation Abnormal (test code = 75433-9) [facility] [id number] 18:31:00 Test Item Value Reference Range Interpretation Comments POCT PREG (test code = 1605) Negative On board controls acceptable with C Yes Line (test code = 3574) POCT PREG LOT # (test code = 3575) POCT PREG TEST DATE (test code = 3576) [facility] CenterPOWY URINALYSIS W/O SPECIFIC [id number] 18:31:00 Test Item Value Reference Range Interpretation [...] = 3257) Trace Negative - Negative [facility]"
--- NOTE | 2022-02-09 01:12 | EDPHYS ---
Physician Documentation [facility] Name: Natanael Dyson Age: 26 yrs Sex: Female : 1995 Arrival Date: 02/09/2022 Time: 00:34 Bed 6 Private MD: ED Physician Harjit Samson HPI: 02/09 00:44 This 26 yrs old Female presents to ER via Unassigned with complaints of Urinary rn Problem, Vomiting. 00:45 The patient presents with urinary symptoms, dysuria, frequency, urinary retention. rn 00:45 Onset: The symptoms/episode began/occurred today. Modifying factors: The symptoms are rn alleviated by nothing, the symptoms are aggravated by urinating. Associated signs and symptoms: Pertinent positives: dysuria, nausea, vomiting, Pertinent negatives: fever. Severity of symptoms: At their worst the symptoms were moderate, in the emergency department the symptoms are unchanged. The patient has not experienced similar symptoms in the past. The patient has been recently seen at the [facility] Emergency Department. Just seen here < 24 hours ago, had neg CT abdomen/pelvis, no evidence of kidney stones, and questionable UTI, prescribed pain meds and abx, but has not filled abx. Returns because of difficulty urinating, states + dysuria and fallon with urination, able to "push some out", but doesn't feel likes empties completely. . 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 - Social history:: Smoking status: Patient denies any tobacco usage or history of. - Family history:: not pertinent. - Hospitalizations: : No recent hospitalization is reported. ROS: 00:45 Constitutional: Negative for fever, chills, and weight loss, Eyes: Negative for injury, rn pain, redness, and discharge, Neck: Negative for injury, pain, and swelling, Cardiovascular: Negative for chest pain, palpitations, and edema, Respiratory: Negative for shortness of breath, cough, wheezing, and pleuritic chest pain, Abdomen/GI: Negative for diarrhea, and constipation, Back: Negative for injury : + difficulty urinating MS/Extremity: Negative for injury and deformity, Skin: Negative for injury, rash, and discoloration, Neuro: Negative for headache, weakness, numbness, tingling, and seizure. Exam: 00:45 Constitutional: This is a well developed, well nourished patient who is awake, alert, rn and in no acute distress. Head/Face: Normocephalic, atraumatic. Cardiovascular: Tachycardic, regular. No pulse deficits. Respiratory: No increased work of breathing, no retractions or nasal flaring. Abdomen/GI: soft, no focal tenderness, no peritoneal signs. Back: No spinal tenderness. No costovertebral tenderness. Full range of motion. Skin: Warm, dry Neuro: Awake and alert, GCS 15. Normal gait. Vital Signs: 00:51 BP 128 / 95; Pulse 113; Resp 18; Temp 98.2; Pulse Ox 100% on R/A; Weight 54.43 kg; tw5 Height 5 ft. 1 in. (154.94 cm); Pain 10/10; 00:51 Body Mass Index 22.67 (54.43 kg, 154.94 cm) tw5 MDM: 00:36 Patient medically screened. rn 01:03 ED course: Patient able to urinate, but small amount. Performing post void residual rn bladder scanner now to determine need for saucedo.. 01:09 Differential diagnosis: urinary tract infection, dysuria, urinary retention. Data rn reviewed: vital signs, nurses notes, and as a result, I will discharge patient. Counseling: I had a detailed discussion with the patient and/or guardian regarding: the historical points, exam findings, and any diagnostic results supporting the discharge/admit diagnosis, the need for outpatient follow up, to return to the emergency department if symptoms worsen or persist or if there are any questions or concerns that arise at home. Special discussion: I discussed with the patient/guardian in detail that at this point there is no indication for admission to the hospital. It is understood, however, that if the symptoms persist or worsen the patient needs to return immediately for re-evaluation. Based on the history and exam findings, there is no indication for further emergent testing or inpatient evaluation. I discussed with the patient/guardian the need to see the urologist for further evaluation of the symptoms. ED course: Post-void residual only 19cc, will dc home. Instructed to take her abx. Will prescribe zofran prn. . 02/09 00:40 Order name: Bladder Scanner rn 02/09 00:44 Order name: Urine Dipstick-Ancillary (obtain specimen) rn 02/09 00:44 Order name: Misc. Order: bladder scanner is pre and post-void; Complete Time: 01:16 rn Administered Medications: 01:17 Drug: Ondansetron 4 mg Route: PO; papi 01:29 Follow up: Response: No adverse reaction kl Disposition Summary: 02/09/22 01:11 Discharge Ordered Location: Home rn Problem: new rn Symptoms: have improved rn Condition: Stable rn Diagnosis - UTI/ Urinary tract infection, site not specified rn - Dysuria rn Followup: rn - With: Private Physician - When: As needed - Reason: Recheck today's complaints, Re-evaluation by your physician Discharge Instructions: - Discharge Summary Sheet rn - Dysuria rn - Urinary Tract Infection, Adult rn Forms: - Medication Reconciliation Form rn - Thank You Letter rn - 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 Head/Face: Normocephalic, atraumatic. Cardiovascular: Regular rate and rhythm. No pulse deficits. Respiratory: No increased work of breathing, no retractions or nasal flaring. Abdomen/GI: soft, no focal tenderness, no peritoneal signs. Back: No spinal tenderness. No costovertebral tenderness. Full range of motion. Skin: Warm, dry Neuro: Awake and alert, GCS 15. Normal gait. rn
--- NOTE | 2022-02-09 01:12 | ER ---
Nurse's Notes [facility] Name: Natanael Dyson Age: 26 yrs Sex: Female : 1995 Arrival Date: 02/09/2022 Time: 00:34 Bed 6 Private MD: Diagnosis: UTI/ Urinary tract infection, site not specified;Dysuria Presentation: 02/09 00:51 Chief complaint: Patient states: "I have not been able to pee since yesterday morning. tw5 If i do pee it hurts and it feels like I have to push real hard.". Coronavirus screen: Vaccine status: Patient reports being unvaccinated. Ebola Screen: Patient negative for fever greater than or equal to 101.5 degrees Fahrenheit, and additional compatible Ebola Virus Disease symptoms Patient denies exposure to infectious person. Patient denies travel to an Ebola-affected area in the 21 days before illness onset. Initial Sepsis Screen: Does the patient meet any 2 criteria? HR > 90 bpm. Does the patient have a suspected source of infection? Yes: Dysuria/Frequency/Urgency/UTI. Risk Assessment: Do you want to hurt yourself or someone else? Patient reports no desire to harm self or others. Onset of symptoms was February 08, 2022. 00:51 Method Of Arrival: Ambulatory tw 00:51 Acuity: THIERNO 3 tw Triage Assessment: 00:53 General: Appears uncomfortable, Behavior is calm, cooperative, appropriate for age. tw5 Pain: Pain currently is 10 out of 10 on a pain scale. GI: Reports nausea. 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 - Social history:: Smoking status: Patient denies any tobacco usage or history of. - Family history:: not pertinent. - Hospitalizations: : No recent hospitalization is reported. Screenin:56 Abuse screen: Denies threats or abuse. Denies injuries from another. Nutritional tw5 screening: No deficits noted. Tuberculosis screening: No symptoms or risk factors identified. Fall Risk None identified. Assessment: 01:05 General: Appears in no apparent distress. comfortable, Behavior is calm, cooperative. kl Pain: Complains of pain in suprapubic area Pain currently is 7 out of 10 on a pain scale. Neuro: No deficits noted. Cardiovascular: No deficits noted. Respiratory: No deficits noted. GI: Abdomen is flat, non-distended. : Reports burning with urination, urinary frequency. EENT: No deficits noted. No signs and/or symptoms were reported regarding the EENT system. Derm: No deficits noted. No signs and/or symptoms reported regarding the dermatologic system. Musculoskeletal: No deficits noted. No signs and/or symptoms reported regarding the musculoskeletal system. Vital Signs: 00:51 BP 128 / 95; Pulse 113; Resp 18; Temp 98.2; Pulse Ox 100% on R/A; Weight 54.43 kg; tw5 Height 5 ft. 1 in. (154.94 cm); Pain 10/10; 00:51 Body Mass Index 22.67 (54.43 kg, 154.94 cm) tw5 ED Course: 00:34 Patient arrived in ED. ja2 00:36 Harjit Samson MD is Attending Physician. rn 00:53 Triage completed. tw5 00:53 Arm band placed on. tw5 00:56 Patient has correct armband on for positive identification. tw5 01:16 Bladder scan completed. 19 ml. kl 01:29 No provider procedures requiring assistance completed. Patient did not have IV access kl during this emergency room visit. Administered Medications: 01:17 Drug: Ondansetron 4 mg Route: PO; kl 01:29 Follow up: Response: No adverse reaction Medication: 01:20 VIS not applicable for this client. kl Outcome: 01:11 Discharge ordered by . rn 01:29 Discharged to home ambulatory. kl 01:29 Condition: improved 01:29 Discharge instructions given to patient, Instructed on discharge instructions, follow up and referral plans. Demonstrated understanding of instructions, follow-up care, medications, Prescriptions given X 2. 01:29 Patient left the ED. Signatures: Cari Cotter RN RN kl Nieto, Roman, MD MD rn Alexander, [facility] [place] tw5
[2022-02-09] MEDS ORDERED: ONDANSETRON 4 MG (ODT) TAB ONE (01:25)
[2022-02-09 23:26] VITALS: BP 128/95; TEMP 98.2; O2SAT 100
== END 2022-02-09 01:29 | disposition home or self-care (01) ==
LOC: ER 00:31
DX: N39.0 Urinary tract infection, site not specified (principal); I10 Essential (primary) hypertension; Z88.8 Allergy status to other drugs, medicaments and biological substances
CPT/HCPCS: 99283; Q0162

== ENCOUNTER 2022-03-22 06:18 | Emergency (ER) | payer OTHER ==
--- OUTSIDE RECORDS SUMMARY | 2022-03-22 06:32 | XMS REPORT | Continuity of Care Document ---
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 at onset of migraine, may take another tablet 2 hours after initial dose if no relief with first dose. DO NOT EXCEED 100mg in a 24 hour period. benzonatate 2021-05- Yes [id number] 200mg Take 1 [facility] 200 mg 0-18 10-26 capsule by ity of capsule 00:00: 04:59 mouth 3 [place] 00 :00 (three) Medical times Branch daily as needed for Cough for up to 7 days. benzonatate 2021-05- Yes [id number] 200mg Take 1 [facility] 200 mg 0-18 10-26 capsule by ity of capsule 00:00: 04:59 mouth 3 [place] 00 :00 (three) Medical times Branch daily as needed for Cough for up to 7 days. benzonatate 2021-05- Yes [id number] 200mg Take 1 [facility] 200 mg 0-18 10-26 capsule by ity of capsule 00:00: 04:59 mouth 3 [place] 00 :00 (three) Medical times Branch daily as needed for Cough for up to 7 days. benzonatate 2021-05- Yes [id number] 200mg Take 1 [facility] 200 mg 0-18 10-26 capsule by ity of capsule 00:00: 04:59 mouth 3 [place] 00 :00 (three) Medical times Branch daily as needed for Cough for up to 7 days. benzonatate 2021-05- Yes [id number] 200mg Take 1 [facility] 200 mg 0-18 10-26 capsule by ity of capsule 00:00: 04:59 mouth 3 [place] 00 :00 (three) Medical times Branch daily as needed for Cough for up to 7 days. benzonatate 2021-05- Yes [id number] 200mg Take 1 [facility] 200 mg 0-18 10-26 capsule by ity of capsule 00:00: 04:59 mouth 3 [place] 00 :00 (three) Medical times Branch daily as needed for Cough for up to 7 days. SUMAtriptan 2021-05- Yes [id number] 50mg Take 1 [facility] 50 mg 0-18 10-19 9105 tablet by ity of tablet 00:00: 04:59 mouth [place] 00 :[place] now for 1 Medical dose. Branch SUMAtriptan 2021-05- Yes [id number] 50mg Take 1 [facility] 50 mg 0-18 10-19 9105 tablet by ity of tablet 00:00: 04:59 mouth [place] 00 :00 now for 1 Medical dose. Branch butalbital- 2021-05- No 1{tbl} 1 tablet, [facility] acetaminoph 0-12 10-12 Oral, ity of en-caff 08:15: 08:09 ONCE, 1 [place] (ESGIC) 00 :00 dose, On Medical 50-325-40 [facility] Branch mg tablet 1 02/21/22 tablet at 0315, [place] butorphanol 2021-05- No 1mg 1 mg, IV U nivers (STADOL) 0-12 Push, ity of injection 1 08:15: 07:28 ONCE, 1 [place] mg 00 :00 dose, On Medical [facility] 02/21/22 at 0315, Routine NaCl 0.9% 2021-05- No 1000mL at 999 Uni vers (NS) bolus 0-12 mL/hr, ity of infusion 07:15: 08:40 1,000 mL, [place] 1,000 mL 00 :00 IV Medical Infusion, Branch ONCE, 1 dose, On [facility] 02/21/22 at 0215, [place] proMETHazin 2021-05- No 12.5mg 12.5 mg, Univers e 002-21 IV ity of (PHENERGAN) 06:30: 06:38 Piggyback, [place] 12.5 mg in 00 :00 ONCE, 1 Medica l NaCl 0.9% dose, On [place] (NS) 50 mL [facility] IV 02/21/22 piggyback at 0130, [place] dexamethaso 2021-05 No 10mg 10 mg, Uni vers ne sod phos 0-12 Slow IV ity of PF 06:30: 06:38 Push, [place] injection 00 :00 ONCE, 1 Medical 10 mg dose, On Branch [facility] 02/21/22 at 0130, 1 mL ketorolac 2021-05 No 15mg 15 mg, Unive rs (TORADOL) 012 -12 Slow IV ity of injection 06:30: 06:38 Push, [place] 15 mg 00 :00 ONCE, 1 Medical dose, On Branch [facility] 02/21/22 at 0130, [place] diphenhydrA 2021-05- No 25mg 25 mg, Uni vers MINE 0-04 21-12 Slow IV ity of (BENADRYL) 06:30: 06:38 Push, [place] injection 00 :00 ONCE, 1 Medical 25 mg dose, On Branch 02/21/22 at 0130, [place] FENTanyl PF 2021-05 No 50ug 50 mcg, Un sushant (SUBLIMAZE 02-18 Slow IV ity o f (PF)) 20:30: 19:44 Push, [place] injection 00 :00 ONCE, 1 Medical 50 mcg dose, On Branch 02/18/22 at 1530, Routine ketorolac 2021-05 No 30mg 30 mg, Unive rs (TORADOL) 002-18 Slow IV ity of injection 20:15: 20:09 Push, [place] 30 mg 00 :00 ONCE, 1 Medical dose, On Branch 02/18/22 at 1515, [place] iopamidol 2021-05 No [id number] 60mL 60 mL, Un sushant (ISOVUE 02-18 Intravenou ity o f 370-500 mL) 19:30: 17:30 s, ONCE, 1 [place] injection 00 :00 dose, On Medica l 60 mL [place] [facility] 02/18/22 at 1430, Routine proMETHazin 2021-05 No 12.5mg 12.5 mg, Univers e 02-18 IV ity of (PHENERGAN) 18:15: 18:19 Piggyback, [place] 12.5 mg in 00 :00 ONCE, 1 Medica l NaCl 0.9% dose, On Branch (NS) 50 mL [place] IV 02/18/22 at piggyback 1315, [place] FENTanyl PF 2021-05 No 50ug 50 mcg, Un sushant (SUBLIMAZE 02-18 Slow IV ity o f (PF)) 18:00: 17:26 Push, [place] injection 00 :00 ONCE, 1 Medical 50 mcg dose, On Branch 02/18/22 at 1300, Routine ondansetron 2021-05 No 4mg 4 mg, Slow [facility] (ZOFRAN 02-18 IV Push, ity of (PF)) 17:15: 17:27 ONCE, 1 [place] injection 4 00 :00 dose, On Medi yessi mg [place] [facility] 02/18/22 at 1215, [place] morpHINE (2 No 4mg 4 mg, Slow [facility] mg/mL) 9-08 09-08 IV Push, ity of injection 4 15:15: 14:49 ONCE, 1 [place] mg 00 :00 dose, On Medical [facility] 01/18/22 Branch at 1015, STAT ondansetron 2021-2021- No 4mg 4 mg, Slow [facility] (ZOFRAN 01-18 IV Push, ity of (PF)) 13:30: 13:33 ONCE, 1 [place] injection 4 00 :00 dose, On Medi yessi mg [facility] 01/18/22 Branch at 0830, [place] morpHINE (4 2021- No 4mg 4 mg, Slow [facility] mg/mL) 01-18 IV Push, ity of injection 4 13:30: 13:34 ONCE, 1 [place] mg 00 :00 dose, On [facility] 01/18/22 Branch at 0830, STAT morpHINE (4 2021- No 4mg 4 mg, Slow [facility] mg/mL) 01-18 IV Push, ity of injection 4 12:30: 11:39 ONCE, 1 [place] mg 00 :00 dose, On Medical [facility] 01/18/22 Branch at 0730, STAT famotidine 2021-2021- No 20mg 20 mg, Univ ers (PEPCID 01-18 Slow IV ity of (PF)) 11:30: 10:52 Push, [place] injection 00 :00 ONCE, 1 Medical 20 mg dose, On Branch [facility] 01/18/22 at 0630, [place] ondansetron 2021- No 4mg 4 mg, Slow [facility] (ZOFRAN 01-18 IV Push, ity of (PF)) 11:30: 10:52 ONCE, 1 [place] injection 4 00 :00 dose, On Medi yessi mg [facility] 01/18/22 Branch at 0630, [place] iodixanoL 2021-2021- No [id number] 80mL 80 mL, U nivers (VISIPAQUE 01-18 Intravenou it y of 270-150 mL) 11:21: 11:15 s, ONCE, 1 [place] injection 00 :00 dose, On Medica l 80 mL [facility] 01/18/22 Branch at 0630, Routine NaCl [...] 50mg Take 1 Univ ers mg tablet 908 tablet by ity o f 00:00: mouth [place] 00 every 6 Medical (six) Branch hours as needed for Pain (scale 7-10). Indication s: acute pain ondansetron 0 Yes [id number] 4mg Take 1 [facility] 4 mg 01-18 [id number] tablet by ity of disintegrat 00:00: mouth [place] ing tablet 00 every 8 Medica l (eight) Branch hours as needed for Nausea and Vomiting (N/V). ibuprofen Yes [id number] 600mg Take 1 [facility] 600 mg 01-18 [id number] tablet by ity of tablet 00:00: mouth [place] 00 every 6 Medical (six) Branch hours as needed for Pain (scale 4-6). traMADoL 50 2021-0 Yes [id number] 50mg Take 1 Univ ers mg tablet 9-08 tablet by ity o f 00:00: mouth [place] 00 every 6 Medical (six) Branch hours as needed for Pain (scale 7-10). Indication s: acute pain ondansetron 2021-0 Yes [id number] 4mg Take 1 [facility] 4 mg 9- 690147 tablet by ity of disintegrat 00:00: mouth [place] ing tablet 00 every 8 Medica l (eight) Branch hours as needed for Nausea and Vomiting (N/V). ibuprofen 2021-0 Yes [id number] 600mg Take 1 [facility] 600 mg 9- [id number] tablet by ity of tablet 00:00: mouth [place] 00 every 6 Medical (six) Branch hours as needed for Pain (scale 4-6). traMADoL 50 2022-0 Yes [id number] 50mg Take 1 Univ ers mg tablet 9-08 tablet by ity o f 00:00: mouth [place] 00 every 6 Medical (six) Branch hours as needed for Pain (scale 7-10). Indication s: acute pain ondansetron 2022-0 Yes [id number] 4mg Take 1 [facility] 4 mg 9-08 [id number] tablet by ity of disintegrat 00:00: mouth [place] ing tablet 00 every 8 Medica l (eight) Branch hours as needed for Nausea and Vomiting (N/V). ibuprofen 2022-0 Yes [id number] 600mg Take 1 [facility] 600 mg 9-08 [id number] tablet by ity of tablet 00:00: mouth [place] 00 every 6 Medical (six) Branch hours as needed for Pain (scale 4-6). traMADoL 50 2021-0 Yes [id number] 50mg Take 1 Univ ers mg tablet 9-08 tablet by ity o f 00:00: mouth [place] 00 every 6 Medical (six) Branch hours as needed for Pain (scale 7-10). Indication s: acute pain ondansetron 2022-0 Yes [id number] 4mg Take 1 [facility] 4 mg 9-08 [id number] tablet by ity of disintegrat 00:00: mouth [place] ing tablet 00 every 8 Medica l (eight) Branch hours as needed for Nausea and Vomiting (N/V). ibuprofen 2022-0 Yes [id number] 600mg Take 1 [facility] 600 mg 9-08 [id number] tablet by ity of tablet 00:00: mouth [place] 00 every 6 Medical (six) Branch hours as needed for Pain (scale 4-6). traMADoL 50 2-0 Yes [id number] 50mg Take 1 Univ ers mg tablet 9-08 tablet by ity o f 00:00: mouth [place] 00 every 6 Medical (six) Branch hours as needed for Pain (scale 7-10). Indication s: acute pain ondansetron 2022-0 Yes [id number] 4mg Take 1 [facility] 4 mg 9-08 [id number] tablet by ity of disintegrat 00:00: mouth [place] ing tablet 00 every 8 Medica l (eight) Branch hours as needed for Nausea and Vomiting (N/V). ibuprofen 2022-0 Yes [id number] 600mg Take 1 [facility] 600 mg 9-08 [id number] tablet by ity of tablet 00:00: mouth [place] 00 every 6 Medical (six) Branch hours as needed for Pain (scale 4-6). traMADoL 50 2022-0 Yes [id number] 50mg Take 1 Univ ers mg tablet 9-08 tablet by ity o f 00:00: mouth [place] 00 every 6 Medical (six) Branch hours as needed for Pain (scale 7-10). Indication s: acute pain ondansetron 2022-0 Yes [id number] 4mg Take 1 [facility] 4 mg 9-08 [id number] tablet by ity of disintegrat 00:00: mouth [place] ing tablet 00 every 8 Medica l (eight) Branch hours as needed for Nausea and Vomiting (N/V). ibuprofen 2022-0 Yes [id number] 600mg Take 1 [facility] 600 mg 9-08 [id number] tablet by ity of tablet 00:00: mouth [place] 00 every 6 Medical (six) Branch hours as needed for Pain (scale 4-6). traMADoL 50 2-0 Yes [id number] 50mg Take 1 Univ ers mg tablet 9-08 tablet by ity o f 00:00: mouth [place] 00 every 6 Medical (six) Branch hours as needed for Pain (scale 7-10). Indication s: acute pain ondansetron 2022-0 Yes [id number] 4mg Take 1 [facility] 4 mg 9-08 [id number] tablet by ity of disintegrat 00:00: mouth [place] ing tablet 00 every 8 Medica l (eight) Branch hours as needed for Nausea and Vomiting (N/V). ibuprofen 2022-0 Yes [id number] 600mg Take 1 [facility] 600 mg 9-08 [id number] tablet by ity of tablet 00:00: mouth [place] 00 every 6 Medical (six) Branch hours as needed for Pain (scale 4-6). traMADoL 50 2022-0 Yes [id number] 50mg Take 1 Univ ers mg tablet 9-08 tablet by ity o f 00:00: mouth [place] 00 every 6 Medical (six) Branch hours as needed for Pain (scale 7-10). Indication s: acute pain ondansetron 2022-0 Yes [id number] 4mg Take 1 [facility] 4 mg 9-08 [id number] tablet by ity of disintegrat 00:00: mouth [place] ing tablet 00 every 8 Medica l (eight) Branch hours as needed for Nausea and Vomiting (N/V). ibuprofen 2022-0 Yes [id number] 600mg Take 1 [facility] 600 mg 01-18 [id number] tablet by ity of tablet 00:00: mouth [place] 00 every 6 Medical (six) Branch hours as needed for Pain (scale 4-6). traMADoL 50 2021-2021- No [id number] 50mg Take 1 Uni vers mg tablet 01-18 tablet by ity of 00:00: 00:00 mouth [place] 00 :00 every 6 Medical (six) Branch hours as needed for Pain (scale 7-10). Indication s: acute pain ondansetron 2021- No [id number] 4mg Take 1 [facility] 4 mg 01-18 [id number] tablet by ity of disintegrat 00:00: 00:00 mouth [place] ing tablet 00 :00 every 8 Medica l (eight) Branch hours as needed for Nausea and Vomiting (N/V). ibuprofen 2021-2021- No [id number] 600mg Take 1 [facility] 600 mg 01-18 [id number] tablet by ity o f tablet 00:00: 00:00 mouth [place] 00 :00 every 6 Medical (six) Branch hours as needed for Pain (scale 4-6). traMADoL 50 2021- No [id number] 50mg Take 1 Uni vers mg tablet 01-18 tablet by ity of 00:00: 00:00 mouth [place] 00 :00 every 6 Medical (six) Branch hours as needed for Pain (scale 7-10). Indication s: acute pain ondansetron 2021- No [id number] 4mg Take 1 [facility] 4 mg 01-18 [id number] tablet by ity of disintegrat 00:00: 00:00 mouth [place] ing tablet 00 :00 every 8 Medica l (eight) Branch hours as needed for Nausea and Vomiting (N/V). ibuprofen 2021-2021- No [id number] 600mg Take 1 [facility] 600 mg 01-18 [id number] tablet by ity o f tablet 00:00: 00:00 mouth [place] 00 :00 every 6 Medical (six) Branch hours as needed for Pain (scale 4-6). traMADoL 50 2021-2021- No [id number] 50mg Take 1 Uni vers mg tablet 9-08 10-18 tablet by ity of 00:00: 00:00 mouth [place] 00 :00 every 6 Medical (six) Branch hours as needed for Pain (scale 7-10). Indication s: acute pain ondansetron 2021-2021- No [id number] 4mg Take 1 [facility] 4 mg 01-18 [id number] tablet by ity of disintegrat 00:00: 00:00 mouth [place] ing tablet 00 :00 every 8 Medica l (eight) Branch hours as needed for Nausea and Vomiting (N/V). ibuprofen 2021- No [id number] 600mg Take 1 [facility] 600 mg 01-18 [id number] tablet by ity o f tablet 00:00: 00:00 mouth [place] 00 :00 every 6 Medical (six) Branch hours as needed for Pain (scale 4-6). traMADoL 50 2021- No [id number] 50mg Take 1 Uni vers mg tablet 01-18 tablet by ity of 00:00: 00:00 mouth [place] 00 :00 every 6 Medical (six) Branch hours as needed for Pain (scale 7-10). Indication s: acute pain ondansetron 2021- No [id number] 4mg Take 1 [facility] 4 mg 01-18 [id number] tablet by ity of disintegrat 00:00: 00:00 mouth [place] ing tablet 00 :00 every 8 Medica l (eight) Branch hours as needed for Nausea and Vomiting (N/V). ibuprofen 2021- No [id number] 600mg Take 1 [facility] 600 mg 01-18 [id number] tablet by ity o f tablet 00:00: 00:00 mouth [place] 00 :00 every 6 Medical (six) Branch hours as needed for Pain (scale 4-6). predniSONE 2021- Yes [id number] 40mg Take 2 [facility] 20 mg 01-1614 tablets by ity of tablet 00:00: 04:59 mouth in [place] 00 :00 the Medical morning Branch for 7 days. predniSONE 2021- Yes [id number] 40mg Take 2 [facility] 20 mg 01-1614 tablets by ity of tablet 00:00: 04:59 mouth in [place] 00 :00 the Medical morning Branch for 7 days. morpHINE (4 2021- No 4mg 4 mg, Slow [facility] mg/mL) 01-15 IV Push, ity of injection 4 16:15: 15:28 ONCE, 1 [place] mg 00 :00 dose, On Medical [facility] 01/15/22 Branch at 1115, [place] proMETHazin No 12.5mg 12.5 mg, Univers e 01-15 IV ity of (PHENERGAN) 15:30: 15:28 Piggyback, [place] 12.5 mg in 00 :00 ONCE, 1 Medica l NaCl 0.9% dose, On Branch (NS) 50 mL Sat01/15/22 IV at 1030, piggyback [place] NaCl 0.9% No 1000mL at 999 Uni vers (NS) bolus 01-15 mL/hr, ity of infusion 15:00: 15:38 1,000 mL, [place] as 1,000 mL 00 :00 IV Medical Infusion, Branch ONCE, 1 dose, On Sat01/15/22 at 1000, [place] morpHINE (4 No 4mg 4 mg, Slow [facility] mg/mL) 01-15 IV Push, ity of injection 4 15:00: 14:37 ONCE, 1 [place] mg 00 :00 dose, On Medical [facility] 01/15/22 Branch at 1000, [place] ondansetron 2021- No 8mg 8 mg, Slow [facility] (ZOFRAN 01-15 IV Push, ity of (PF)) 14:15: 14:37 ONCE, 1 [place] injection 8 00 :00 dose, On Medi yessi mg [facility] 01/15/22 Branch at 0915, [place] dexamethaso No 10mg 10 mg, Uni vers ne sod phos 01-15 Slow IV ity of PF 14:15: 14:37 Push, [place] injection 00 :00 ONCE, 1 Medical 10 mg dose, On Branch Sat01/15/22 at 0915, 1 mL proMETHazin Yes [id number] 25mg Take 1 Univers e 25 mg 01-15 tablet by ity of tablet 00:00: mouth [place] 00 every 6 Medical (six) Branch hours as needed for Nausea and Vomiting (N/V). proMETHazin 2-0 Yes [id number] 25mg Take 1 Univers e 25 mg 9-05 tablet by ity of tablet 00:00: mouth [place] 00 every 6 Medical (six) Branch hours as needed for Nausea and Vomiting (N/V). proMETHazin 2021-0 Yes [id number] 25mg Take 1 Univers e 25 mg 9-05 tablet by ity of tablet 00:00: mouth [place] 00 every 6 Medical (six) Branch hours as needed for Nausea and Vomiting (N/V). proMETHazin 2021-0 Yes [id number] 25mg Take 1 Univers e 25 mg 9-05 tablet by ity of tablet 00:00: mouth [place] 00 every 6 Medical (six) Branch hours as needed for Nausea and Vomiting (N/V). proMETHazin 2021-0 Yes [id number] 25mg Take 1 Univers e 25 mg 9-05 tablet by ity of tablet 00:00: mouth [place] 00 every 6 Medical (six) Branch hours as needed for Nausea and Vomiting (N/V). proMETHazin 2021-0 Yes [id number] 25mg Take 1 Univers e 25 mg 9-05 tablet by ity of tablet 00:00: mouth [place] 00 every 6 Medical (six) Branch hours as needed for Nausea and Vomiting (N/V). proMETHazin 2021-0 Yes [id number] 25mg Take 1 Univers e 25 mg 9-05 tablet by ity of tablet 00:00: mouth [place] 00 every 6 Medical (six) Branch hours as needed for Nausea and Vomiting (N/V). proMETHazin 2021-0 Yes [id number] 25mg Take 1 Univers e 25 mg 9-05 tablet by ity of tablet 00:00: mouth [place] 00 every 6 Medical (six) Branch hours as needed for Nausea and Vomiting (N/V). proMETHazin 2-0 Yes [id number] 25mg Take 1 Univers e 25 mg 9-05 tablet by ity of tablet 00:00: mouth [place] 00 every 6 Medical (six) Branch hours as needed for Nausea and Vomiting (N/V). proMETHazin 2021-0 2022- No [id number] 25mg Take 1 Univers e 25 mg 9-05 10-18 tablet by ity of tablet 00:00: 00:00 mouth [place] 00 :00 every 6 Medical (six) Branch hours as needed for Nausea and Vomiting (N/V). proMETHazin 2021-0 2021- No [id number] 25mg Take 1 Univers e 25 mg 9-05 10-18 tablet by ity of tablet 00:00: 00:00 mouth [place] 00 :00 every 6 Medical (six) Branch hours as needed for Nausea and Vomiting (N/V). proMETHazin 2021-0 2021- No [id number] 25mg Take 1 Univers e 25 mg 9-05 10-18 tablet by ity of tablet 00:00: 00:00 mouth [place] 00 :00 every 6 Medical (six) Branch hours as needed for Nausea and Vomiting (N/V). proMETHazin 2021-0 2021- No [id number] 25mg Take 1 Univers e 25 mg 9-05 10-18 tablet by ity of tablet 00:00: 00:00 mouth [place] 00 :00 every 6 Medical (six) Branch hours as needed for Nausea and Vomiting (N/V). ondansetron 2021- No 4mg 4 mg, Univ ers (ZOFRAN-ODT 01-09 Oral, ity of ) 01:45: 00:56 ONCE, 1 [place] disintegrat 00 :00 dose, On Medi yessi ing tablet [facility] 4 mg 01/08/22 at 2045, Routine [...] Medical 25 mg dose, On Branch [facility] 01/08/22 at 1845, STAT dexamethaso 2021- No 10mg 10 mg, Uni vers ne sod phos 01-08 Slow IV ity of PF 23:45: 23:50 Push, [place] injection 00 :00 ONCE, 1 Medical 10 mg dose, On Branch [facility] 01/08/22 at 1845, 1 mL ketorolac 2021-0 2021- No 30mg 30 mg, Unive rs (TORADOL) 01-08- Slow IV ity of injection 23:45: 23:51 Push, [place] 30 mg 00 :00 ONCE, 1 Medical dose, On Branch 01/08/22 at 1845, [place] ondansetron 2021-0 Yes [id number] 4mg Take 1 [facility] 4 mg 8-29 tablet by ity of disintegrat 00:00: mouth [place] ing tablet 00 every 8 Medica l (eight) Branch hours as needed for Nausea and Vomiting (N/V). acetaminoph 2021-0 Yes [id number] 650mg Take 1 Univers en (TYLENOL 8-29 tablet by ity of ARTHRITIS 00:00: mouth [place] PAIN) 650 00 every 8 Medical mg CR (eight) Branch tablet hours as needed for Pain. ketorolac 2021-0 Yes [id number] 10mg Take 1 U nivers 10 mg 8-29 tablet by ity of tablet 00:00: mouth [place] 00 every 6 Medical (six) Branch hours as needed for Pain (scale 4-6) or Pain (scale 7-10). metaxalone 2021-0 Yes [id number] 800mg Take 1 Univers (SKELAXIN) 8-29 tablet by ity of 800 mg 00:00: mouth in [place] tablet 00 the Medical morning Branch and 1 tablet at noon and 1 tablet in the evening. ondansetron 2021-0 Yes [id number] 4mg Take 1 [facility] 4 mg 8-29 tablet by ity of disintegrat 00:00: mouth [place] ing tablet 00 every 8 Medica l (eight) Branch hours as needed for Nausea and Vomiting (N/V). acetaminoph 2021-0 Yes [id number] 650mg Take 1 Univers en (TYLENOL 8-29 tablet by ity of ARTHRITIS 00:00: mouth [place] PAIN) 650 00 every 8 Medical mg CR (eight) Branch tablet hours as needed for Pain. ketorolac 2021-0 Yes [id number] 10mg Take 1 U nivers 10 mg 8-29 tablet by ity of tablet 00:00: mouth [place] 00 every 6 Medical (six) Branch hours as needed for Pain (scale 4-6) or Pain (scale 7-10). metaxalone 2021-0 Yes [id number] 800mg Take 1 Univers (SKELAXIN) 8-29 tablet by ity of 800 mg 00:00: mouth in [place] tablet 00 the Medical morning Branch and 1 tablet at noon and 1 tablet in the evening. ondansetron 2022-0 Yes [id number] 4mg Take 1 [facility] 4 mg 8-29 tablet by ity of disintegrat 00:00: mouth [place] ing tablet 00 every 8 Medica l (eight) Branch hours as needed for Nausea and Vomiting (N/V). acetaminoph 202-0 Yes [id number] 650mg Take 1 Univers en (TYLENOL 8-29 tablet by ity of ARTHRITIS 00:00: mouth [place] PAIN) 650 00 every 8 Medical mg CR (eight) Branch tablet hours as needed for Pain. ketorolac 2022-0 Yes [id number] 10mg Take 1 U nivers 10 mg 8-29 tablet by ity of tablet 00:00: mouth [place] 00 every 6 Medical (six) Branch hours as needed for Pain (scale 4-6) or Pain (scale 7-10). metaxalone 2021-0 Yes [id number] 800mg Take 1 Univers (SKELAXIN) 8-29 tablet by ity of 800 mg 00:00: mouth in [place] tablet 00 the Medical morning Branch and 1 tablet at noon and 1 tablet in the evening. ondansetron 2021-0 Yes [id number] 4mg Take 1 [facility] 4 mg 8-29 tablet by ity of disintegrat 00:00: mouth [place] ing tablet 00 every 8 Medica l (eight) Branch hours as needed for Nausea and Vomiting (N/V). acetaminoph 2-0 Yes [id number] 650mg Take 1 Univers en (TYLENOL 8-29 tablet by ity of ARTHRITIS 00:00: mouth [place] PAIN) 650 00 every 8 Medical mg CR (eight) Branch tablet hours as needed for Pain. ketorolac 2022-0 Yes [id number] 10mg Take 1 U nivers 10 mg 8-29 tablet by ity of tablet 00:00: mouth [place] 00 every 6 Medical (six) Branch hours as needed for Pain (scale 4-6) or Pain (scale 7-10). metaxalone 2022-0 Yes [id number] 800mg Take 1 Univers (SKELAXIN) 8-29 tablet by ity of 800 mg 00:00: mouth in [place] tablet 00 the Medical morning Branch and 1 tablet at noon and 1 tablet in the evening. ondansetron 2022-0 Yes [id number] 4mg Take 1 Univers 4 mg 8-29 tablet by ity of disintegrat 00:00: mouth [place] ing tablet 00 every 8 Medica l (eight) Branch hours as needed for Nausea and Vomiting (N/V). acetaminoph 2022-0 Yes [id number] 650mg Take 1 Univers en (TYLENOL 8-29 tablet by ity of ARTHRITIS 00:00: mouth [place] PAIN) 650 00 every 8 Medical mg CR (eight) Branch tablet hours as needed for Pain. ketorolac 2022-0 Yes [id number] 10mg Take 1 U nivers 10 mg 8-29 tablet by ity of tablet 00:00: mouth [place] 00 every 6 Medical (six) Branch hours as needed for Pain (scale 4-6) or Pain (scale 7-10). metaxalone 2022-0 Yes [id number] 800mg Take 1 Univers (SKELAXIN) 8-29 tablet by ity of 800 mg 00:00: mouth in [place] tablet 00 the Medical morning Branch and 1 tablet at noon and 1 tablet in the evening. ondansetron 2-0 Yes [id number] 4mg Take 1 [facility] 4 mg 8-29 tablet by ity of disintegrat 00:00: mouth [place] ing tablet 00 every 8 Medica l (eight) Branch hours as needed for Nausea and Vomiting (N/V). acetaminoph 2022-0 Yes [id number] 650mg Take 1 Univers en (TYLENOL 8-29 tablet by ity of ARTHRITIS 00:00: mouth [place] PAIN) 650 00 every 8 Medical mg CR (eight) Branch tablet hours as needed for Pain. ketorolac 2022-0 Yes [id number] 10mg Take 1 U nivers 10 mg 8-29 tablet by ity of tablet 00:00: mouth [place] 00 every 6 Medical (six) Branch hours as needed for Pain (scale 4-6) or Pain (scale 7-10). metaxalone 2022-0 Yes [id number] 800mg Take 1 [facility] (SKELAXIN) 8-29 tablet by ity of 800 mg 00:00: mouth in [place] tablet 00 the Medical morning Branch and 1 tablet at noon and 1 tablet in the evening. ondansetron 2022-0 Yes [id number] 4mg Take 1 [facility] 4 mg 8-29 tablet by ity of disintegrat 00:00: mouth [place] ing tablet 00 every 8 Medica l (eight) Branch hours as needed for Nausea and Vomiting (N/V). acetaminoph 2022-0 Yes [id number] 650mg Take 1 Univers en (TYLENOL 8-29 tablet by ity of ARTHRITIS 00:00: mouth [place] PAIN) 650 00 every 8 Medical mg CR (eight) Branch tablet hours as needed for Pain. ketorolac 2022-0 Yes [id number] 10mg Take 1 [facility] n[facility] 10 mg 8-29 tablet by ity of tablet 00:00: mouth [place] 00 every 6 Medical (six) Branch hours as needed for Pain (scale 4-6) or Pain (scale 7-10). metaxalone 2022-0 Yes [id number] 800mg Take 1 [facility] (SKELAXIN) 8-29 tablet by ity of 800 mg 00:00: mouth in [place] tablet 00 the Medical morning Branch and 1 tablet at noon and 1 tablet in the evening. ondansetron 2022-0 Yes [id number] 4mg Take 1 [facility] 4 mg 8-29 tablet by ity of disintegrat 00:00: mouth [place] ing tablet 00 every 8 Medica l (eight) Branch hours as needed for Nausea and Vomiting (N/V). acetaminoph 2022-0 Yes [id number] 650mg Take 1 [facility] en (TYLENOL 8-29 tablet by ity of ARTHRITIS 00:00: mouth [place] PAIN) 650 00 every 8 Medical mg CR (eight) Branch tablet hours as needed for Pain. ketorolac 2022-0 Yes [id number] 10mg Take 1 [facility] nivers 10 mg 8-29 tablet by ity of tablet 00:00: mouth [place] 00 every 6 Medical (six) Branch hours as needed for Pain (scale 4-6) or Pain (scale 7-10). metaxalone 2022-0 Yes [id number] 800mg Take 1 [facility] (SKELAXIN) 8-29 tablet by ity of 800 mg 00:00: mouth in [place] tablet 00 the Medical morning Branch and 1 tablet at noon and 1 tablet in the evening. ondansetron 2022-0 Yes [id number] 4mg Take 1 [facility] 4 mg 8-29 tablet by ity of disintegrat 00:00: mouth [place] ing tablet 00 every 8 Medica l (eight) Branch hours as needed for Nausea and Vomiting (N/V). acetaminoph 2022-0 Yes [id number] 650mg Take 1 [facility] en (TYLENOL 8-29 tablet by ity of ARTHRITIS 00:00: mouth [place] PAIN) 650 00 every 8 Medical mg CR (eight) Branch tablet hours as needed for Pain. ketorolac 2022-0 Yes [id number] 10mg Take 1 [facility] nivers 10 mg 8-29 tablet by ity of tablet 00:00: mouth [place] 00 every 6 Medical (six) Branch hours as needed for Pain (scale 4-6) or Pain (scale 7-10). metaxalone 2022-0 Yes [id number] 800mg Take 1 [facility] (SKELAXIN) 8-29 tablet by ity of 800 mg 00:00: mouth in [place] tablet 00 the Medical morning Branch and 1 tablet at noon and 1 tablet in the evening. ondansetron 2-0 Yes [id number] 4mg Take 1 [facility] 4 mg 8-29 tablet by ity of disintegrat 00:00: mouth [place] ing tablet 00 every 8 Medica l (eight) Branch hours as needed for Nausea and Vomiting (N/V). acetaminoph 2-0 Yes [id number] 650mg Take 1 [facility] en (TYLENOL 8-29 tablet by ity of ARTHRITIS 00:00: mouth [place] PAIN) 650 00 every 8 Medical mg CR (eight) Branch tablet hours as needed for Pain. ketorolac 2022-0 Yes [id number] 10mg Take 1 [facility] nivers 10 mg 8-29 tablet by ity of tablet 00:00: mouth [place] 00 every 6 Medical (six) Branch hours as needed for Pain (scale 4-6) or Pain (scale 7-10). metaxalone 2022-0 Yes [id number] 800mg Take 1 [facility] (SKELAXIN) 8-29 tablet by ity of 800 mg 00:00: mouth in [place] tablet 00 the Medical morning Branch and 1 tablet at noon and 1 tablet in the evening. acetaminoph 2022-0 Yes [id number] 650mg Take 1 [facility] en (TYLENOL 8-29 tablet by ity of ARTHRITIS 00:00: mouth [place] PAIN) 650 00 every 8 Medical mg CR (eight) Branch tablet hours as needed for Pain. acetaminoph 2021-0 Yes [id number] 650mg Take 1 [facility] en (TYLENOL 8-29 tablet by ity of ARTHRITIS 00:00: mouth [place] PAIN) 650 00 every 8 Medical mg CR (eight) Branch tablet hours as needed for Pain. acetaminoph 2021-0 Yes [id number] 650mg Take 1 [facility] en (TYLENOL 8-29 tablet by ity of ARTHRITIS 00:00: mouth [place] PAIN) 650 00 every 8 Medical mg CR (eight) Branch tablet hours as needed for Pain. acetaminoph 0 Yes [id number] 650mg Take 1 [facility] en (TYLENOL 8-29 tablet by ity of ARTHRITIS 00:00: mouth [place] PAIN) 650 00 every 8 Medical mg CR (eight) Branch tablet hours as needed for Pain. acetaminoph 0 Yes [id number] 650mg Take 1 [facility] en (TYLENOL 8-29 tablet by ity of ARTHRITIS 00:00: mouth [place] PAIN) 650 00 every 8 Medical mg CR (eight) Branch tablet hours as needed for Pain. acetaminoph 0 Yes [id number] 650mg Take 1 [facility] en (TYLENOL 8-29 tablet by ity of ARTHRITIS 00:00: mouth [place] PAIN) 650 00 every 8 Medical mg CR (eight) Branch tablet hours as needed for Pain. acetaminoph 0 Yes [id number] 650mg Take 1 [facility] en (TYLENOL 8-29 tablet by ity of ARTHRITIS 00:00: mouth [place] PAIN) 650 00 every 8 Medical mg CR (eight) Branch tablet hours as needed for Pain. acetaminoph 0 Yes [id number] 650mg Take 1 [facility] en (TYLENOL 8-29 tablet by ity of ARTHRITIS 00:00: mouth [place] PAIN) 650 00 every 8 Medical mg CR (eight) Branch tablet hours as needed for Pain. acetaminoph 0 Yes [id number] 650mg Take 1 [facility] en (TYLENOL 8-29 tablet by ity of ARTHRITIS 00:00: mouth [place] PAIN) 650 00 every 8 Medical mg CR (eight) Branch tablet hours as needed for Pain. acetaminoph 2021-0 Yes [id number] 650mg Take 1 [facility] en (TYLENOL 8-29 tablet by ity of ARTHRITIS 00:00: mouth [place] PAIN) 650 00 every 8 Medical mg CR (eight) Branch tablet hours as needed for Pain. acetaminoph 2-0 Yes [id number] 650mg Take 1 [facility] en (TYLENOL 8-29 tablet by ity of ARTHRITIS 00:00: mouth [place] PAIN) 650 00 every 8 Medical mg CR (eight) Branch tablet hours as needed for Pain. ondansetron 2021-0 2022- No [id number] 4mg Take 1 [facility] 4 mg 8-29 10-18 tablet by ity of disintegrat 00:00: 00:00 mouth [place] ing tablet 00 :00 every 8 Medica l (eight) Branch hours as needed for Nausea and Vomiting (N/V). ketorolac 2021-0 2021- No [id number] 10mg Take 1 [facility] 10 mg 8-29 10-18 tablet by ity of tablet 00:00: 00:00 mouth [place] 00 :00 every 6 Medical (six) Branch hours as needed for Pain (scale 4-6) or Pain (scale 7-10). metaxalone 2021-0 2- No [id number] 800mg Take 1 [facility] (SKELAXIN) 8-29 10-18 tablet by ity of 800 mg 00:00: 00:00 mouth in [place] tablet 00 :00 the Medical morning Branch and 1 tablet at noon and 1 tablet in the evening. ondansetron 2021-0 2022- No [id number] 4mg Take 1 [facility] 4 mg 8-29 10-18 tablet by ity of disintegrat 00:00: 00:00 mouth [place] ing tablet 00 :00 every 8 Medica l (eight) Branch hours as needed for Nausea and Vomiting (N/V). ketorolac 2022-0 2022- No [id number] 10mg Take 1 [facility] 10 mg 8-29 10-18 tablet by ity of tablet 00:00: 00:00 mouth [place] 00 :00 every 6 Medical (six) Branch hours as needed for Pain (scale 4-6) or Pain (scale 7-10). metaxalone 2022-0 2022- No [id number] 800mg Take 1 [facility] (SKELAXIN) 8-29 10-18 tablet by ity of 800 mg 00:00: 00:00 mouth in [place] tablet 00 :00 the Medical morning Branch and 1 tablet at noon and 1 tablet in the evening. ondansetron 2022-0 2022- No [id number] 4mg Take 1 [facility] 4 mg 8-29 10-18 tablet by ity of disintegrat 00:00: 00:00 mouth [place] ing tablet 00 :00 every 8 Medica l (eight) Branch hours as needed for Nausea and Vomiting (N/V). ketorolac 2022-0 2022- No [id number] 10mg Take 1 [facility] 10 mg 8-29 10-18 tablet by ity of tablet 00:00: 00:00 mouth [place] 00 :00 every 6 Medical (six) Branch hours as needed for Pain (scale 4-6) or Pain (scale 7-10). metaxalone 2022-0 2022- No [id number] 800mg Take 1 [facility] (SKELAXIN) 8-29 10-18 tablet by ity of 800 mg 00:00: 00:00 mouth in [place] tablet 00 :00 the Medical morning Branch and 1 tablet at noon and 1 tablet in the evening. ondansetron 2022-0 2022- No [id number] 4mg Take 1 [facility] 4 mg 8-29 10-18 tablet by ity of disintegrat 00:00: 00:00 mouth [place] ing tablet 00 :00 every 8 Medica l (eight) Branch hours as needed for Nausea and Vomiting (N/V). ketorolac 2022-0 2022- No [id number] 10mg Take 1 [facility] 10 mg 8-29 10-18 tablet by ity of tablet 00:00: 00:00 mouth [place] 00 :00 every 6 Medical (six) Branch hours as needed for Pain (scale 4-6) or Pain (scale 7-10). metaxalone 2022-0 2022- No [id number] 800mg Take 1 [facility] (SKELAXIN) 8-29 10-18 tablet by ity of 800 mg 00:00: 00:00 mouth in [place] tablet 00 :00 the Medical morning Branch and 1 tablet [...] 12 Medical (twelve) Branch hours. metroNIDAZO 2022-0 2022- No 500mg Take 1 Un sushant LE 500 mg 8-08 10-18 tablet by ity of tablet 00:00: 00:00 mouth [place] 00 :00 every 12 Medical (twelve) Branch hours. metroNIDAZO 2022-0 2022- No 500mg Take 1 Un sushant LE 500 mg 8- 10-18 tablet by ity of tablet 00:00: 00:00 mouth [place] 00 :00 every 12 Medical (twelve) Branch hours. metroNIDAZO 2021-0 2021- No 500mg Take 1 Un sushant LE 500 mg 8-08 10-18 tablet by ity of tablet 00:00: 00:00 mouth [place] 00 :00 every 12 Medical (twelve) Branch hours. metroNIDAZO 2021-0 2021- No 500mg Take 1 Un sushant LE 500 mg 8-08 10-18 tablet by ity of tablet 00:00: 00:00 mouth [place] 00 :00 every 12 Medical (twelve) Branch hours. trazodone/d 0 2021- No Take by Un sushant ietary 12-12 mouth. ity of supp. no.8 15:08: 00:00 [place] (TRAZAMINE 46 :00 Medical ORAL) Branch diphenhydrA 0 Yes 25mg Take 25 mg [facility] MINE 25 mg 12-12 by mouth ity o f capsule 13:03: every 6 [place] 04 (six) Medical hours as Branch needed for Allergies. carbamazepi 0 Yes Take by Uni vers ne 8 mouth. ity of (TEGRETOL 13:03: [place] ORAL) Medical Branch citalopram Yes Take by [facility] ers hydrobromid 12-12 mouth. ity of e 13:03: [place] (CITALOPRAM 04 Medical ORAL) Branch ALBUTEROL 0 Yes [facility] INHALE 12-12 ity of 13:03: [place] 04 Medical Branch diphenhydrA 0 Yes 25mg Take 25 mg [facility] MINE 25 mg 12-12 by mouth ity o f capsule 13:03: every 6 [place] 04 (six) Medical hours as Branch needed for Allergies. carbamazepi 0 Yes Take by [facility] vers ne 8 mouth. ity of (TEGRETOL 13:03: [place] ORAL) 04 Medical Branch citalopram 0 Yes Take by [facility] ers hydrobromid 8 mouth. ity of e 13:03: [place] (CITALOPRAM 04 Medical ORAL) Branch ALBUTEROL 2021-0 Yes [facility] INHALE 802 ity of 13:03: [place] 04 Medical Branch diphenhydrA Yes 25mg Take 25 mg [facility] MINE 25 mg 8-02 by mouth ity o f capsule 13:03: every 6 [place] [address] (six) Medical hours as Branch needed for Allergies. carbamazepi Yes Take by [facility] vers ne 8- mouth. ity of (TEGRETOL 13:03: [place] ORAL) Medical Branch citalopram Yes Take by [facility] ers hydrobromid 8- mouth. ity of e 13:03: [place] (CITALOPRAM 04 Medical ORAL) Branch ALBUTEROL 0 Yes [facility] INHALE 8 ity of 13:03: [place] [address] Medical Branch diphenhydrA Yes 25mg Take 25 mg [facility] MINE 25 mg 12-12 by mouth ity o f capsule 13:03: every 6 [place] [address] (six) Medical hours as Branch needed for Allergies. carbamazepi Yes Take by [facility] vers ne 8 mouth. ity of (TEGRETOL 13:03: [place] ORAL) Medical Branch citalopram Yes Take by [facility] ers hydrobromid 8- mouth. ity of e 13:03: [place] (CITALOPRAM 04 Medical ORAL) Branch ALBUTEROL Yes [facility] INHALE 12-12 ity of 13:03: [place] [address] Medical Branch diphenhydrA Yes 25mg Take 25 mg [facility] MINE 25 mg 12-12 by mouth ity o f capsule 13:03: every 6 [place] [address] (six) Medical hours as Branch needed for Allergies. carbamazepi Yes Take by [facility] vers ne 8 mouth. ity of (TEGRETOL 13:03: [place] ORAL) 04 Medical Branch citalopram Yes Take by [facility] ers hydrobromid 8-02 mouth. ity of e 13:03: [place] (CITALOPRAM 04 Medical ORAL) Branch ALBUTEROL Yes [facility] INHALE 8 ity of 13:03: [place] [address] Medical Branch diphenhydrA Yes 25mg Take 25 mg [facility] MINE 25 mg 802 by mouth ity o f capsule 13:03: every 6 [place] [address] (six) Medical hours as Branch needed for Allergies. carbamazepi 0 Yes Take by [facility] vers ne 8-02 mouth. ity of (TEGRETOL 13:03: [place] ORAL) 04 Medical Branch citalopram Yes Take by [facility] ers hydrobromid 8-02 mouth. ity of e 13:03: [place] (CITALOPRAM 04 Medical ORAL) Branch ALBUTEROL 0 Yes [facility] INHALE 8-02 ity of 13:03: [place] Medical Branch diphenhydrA 0 Yes 25mg Take 25 mg [facility] MINE 25 mg 802 by mouth ity o f capsule 13:03: every 6 [place] [address] (six) Medical hours as Branch needed for Allergies. carbamazepi 0 Yes Take by [facility] vers ne 8-02 mouth. ity of (TEGRETOL 13:03: [place] ORAL) Medical Branch citalopram Yes Take by [facility] ers hydrobromid 8-02 mouth. ity of e 13:03: [place] (CITALOPRAM 04 Medical ORAL) Branch ALBUTEROL 0 Yes [facility] INHALE 8 ity of 13:03: [place] [address] Medical Branch diphenhydrA Yes 25mg Take 25 mg [facility] MINE 25 mg 802 by mouth ity o f capsule 13:03: every 6 [place] [address] (six) Medical hours as Branch needed for Allergies. carbamazepi 0 Yes Take by [facility] vers ne 8-02 mouth. ity of (TEGRETOL 13:03: [place] ORAL) Medical Branch citalopram Yes Take by [facility] ers hydrobromid 8-02 mouth. ity of e 13:03: [place] (CITALOPRAM 04 Medical ORAL) Branch ALBUTEROL 0 Yes [facility] INHALE 8-02 ity of 13:03: [place] [address] Medical Branch diphenhydrA 0 Yes 25mg Take 25 mg [facility] MINE 25 mg 802 by mouth ity o f capsule 13:03: every 6 [place] [address] (six) Medical hours as Branch needed for Allergies. carbamazepi 0 Yes Take by [facility] vers ne 8-02 mouth. ity of (TEGRETOL 13:03: [place] ORAL) 04 Medical Branch citalopram Yes Take by [facility] ers hydrobromid 8-02 mouth. ity of e 13:03: [place] (CITALOPRAM 04 Medical ORAL) Branch ALBUTEROL Yes [facility] INHALE 8-02 ity of 13:03: [address] diphenhydrA Yes 25mg Take 25 mg [facility] MINE 25 mg 802 by mouth ity o f capsule 13:03: every 6 [place] [address] (six) Medical hours as Branch needed for Allergies. carbamazepi Yes Take by Uni vers ne 8-02 mouth. ity of (TEGRETOL 13:03: [place] ORAL) Medical [place] citalopram Yes Take by [facility] ers hydrobromid 8-02 mouth. ity of e 13:03: [place] (CITALOPRAM 04 Medical ORAL) Branch ALBUTEROL Yes [facility] INHALE 8-02 ity of 13:03: [address] diphenhydrA Yes 25mg Take 25 mg [facility] MINE 25 mg 12-12 by mouth ity o f capsule 13:03: every 6 [place] [address] (six) Medical hours as Branch needed for Allergies. carbamazepi Yes Take by Uni vers ne 8-02 mouth. ity of (TEGRETOL 13:03: [place] ORAL) [address] [place] [id number] citalopram Yes Take by [facility] ers hydrobromid 8-02 mouth. ity of e 13:03: [place] (CITALOPRAM 04 Medical ORAL) [place] ALBUTEROL Yes [facility] INHALE 8-02 ity of 13:03: [address] ALBUTEROL Yes [facility] INHALE 8-02 ity of 13:03: [address] ALBUTEROL Yes [facility] INHALE 8-02 ity of 13:03: [address] ALBUTEROL Yes [facility] INHALE 8-02 ity of 13:03: [address] ALBUTEROL Yes [facility] INHALE 8-02 ity of 13:03: [address] ALBUTEROL Yes [facility] INHALE 8-02 ity of 13:03: [address] ALBUTEROL Yes [facility] INHALE 8-02 ity of 13:03: [address] ALBUTEROL Yes [facility] INHALE 8-02 ity of 13:03: [place] 04 Medical Branch ALBUTEROL Yes [facility] INHALE 8-02 ity of 13:03: Medical Branch ALBUTEROL Yes [facility] INHALE 8-02 ity of 13:03: Medical Branch ALBUTEROL Yes [facility] INHALE 8-02 ity of 13:03: Medical Branch ALBUTEROL Yes [facility] INHALE 8-02 ity of 13:03: Medical Branch traZODone Yes [id number] 50mg Take 1 U nivers 50 mg 8-02 tablet by ity of tablet 00:00: mouth at [place] 00 bedtime. Medical Branch SERTraline Yes [id number] 50mg Take 1 [facility] (ZOLOFT) 50 8-02 tablet by ity of mg tablet 00:00: mouth [place] 00 the Medical morning. Branch traZODone Yes [id number] 50mg Take 1 U nivers 50 mg 8-02 tablet by ity of tablet 00:00: mouth at [place] 00 bedtime. Medical Branch SERTraline Yes [id number] 50mg Take 1 [facility] (ZOLOFT) 50 8-02 tablet by ity of mg tablet 00:00: mouth [place] 00 the Medical morning. Branch traZODone 0 Yes [id number] 50mg Take 1 U nivers 50 mg 8-02 tablet by ity of tablet 00:00: mouth at [place] 00 bedtime. Medical Branch SERTraline 0 Yes [id number] 50mg Take 1 [facility] (ZOLOFT) 50 8-02 tablet by ity of mg tablet 00:00: mouth [place] 00 the Medical morning. Branch traZODone 0 Yes [id number] 50mg Take 1 U nivers 50 mg 8-02 tablet by ity of tablet 00:00: mouth at [place] 00 bedtime. Medical Branch SERTraline 0 Yes [id number] 50mg Take 1 [facility] (ZOLOFT) 50 8-02 tablet by ity of mg tablet 00:00: mouth [place] 00 the Medical morning. Branch traZODone 0 Yes [id number] 50mg Take 1 U nivers 50 mg 8-02 tablet by ity of tablet 00:00: mouth at [place] 00 bedtime. Medical Branch SERTraline 2021-0 Yes [id number] 50mg Take 1 [facility] (ZOLOFT) 50 8-02 tablet by ity of mg tablet 00:00: mouth [place] 00 the Medical morning. Branch traZODone 2021-0 Yes [id number] 50mg Take 1 U nivers 50 mg 8-02 tablet by ity of tablet 00:00: mouth at [place] 00 bedtime. Medical Branch SERTraline 2021-0 Yes [id number] 50mg Take 1 [facility] (ZOLOFT) 50 8-02 tablet by ity of mg tablet 00:00: mouth [place] 00 the Medical morning. Branch traZODone 2021-0 Yes [id number] 50mg Take 1 U nivers 50 mg 8-02 tablet by ity of tablet 00:00: mouth at [place] 00 bedtime. Medical Branch SERTraline 2021-0 Yes [id number] 50mg Take 1 [facility] (ZOLOFT) 50 8-02 tablet by ity of mg tablet 00:00: mouth in [place] 00 the Medical morning. Branch traZODone 2021-0 Yes [id number] 50mg Take 1 U nivers 50 mg 8-02 tablet by ity of tablet 00:00: mouth at [place] 00 bedtime. Medical Branch SERTraline 2021-0 Yes [id number] 50mg Take 1 [facility] (ZOLOFT) 50 8-02 tablet by ity of mg tablet 00:00: mouth [place] 00 the Medical morning. Branch traZODone 2021-0 Yes [id number] 50mg Take 1 U nivers 50 mg 8-02 tablet by ity of tablet 00:00: mouth at [place] 00 bedtime. Medical Branch SERTraline 2021-0 Yes [id number] 50mg Take 1 [facility] (ZOLOFT) 50 8-02 tablet by ity of mg tablet 00:00: mouth [place] 00 the Medical morning. Branch traZODone 2021-0 Yes [id number] 50mg Take 1 U nivers 50 mg 8-02 tablet by ity of tablet 00:00: mouth at [place] 00 bedtime. Medical Branch SERTraline 2021-0 Yes [id number] 50mg Take 1 [facility] (ZOLOFT) 50 8-02 tablet by ity of mg tablet 00:00: mouth [place] 00 the Medical morning. [place] traZODone Yes [id number] 50mg Take 1 U nivers 50 mg 8-02 tablet by ity of tablet 00:00: mouth at [place] 00 bedtime. [facility] SERTraline Yes [id number] 50mg Take 1 [facility] (ZOLOFT) 50 8-02 tablet by ity of mg tablet 00:00: mouth in [facility] 00 the Medical morning. [place] traZODone 2021- No [id number] 50mg Take 1 [facility] 50 mg 8-02 10-18 tablet by ity of tablet 00:00: 00:00 mouth at [place] 00 :00 bedtime. [facility] SERTraline 2021- No [id number] 50mg Take 1 [facility] (ZOLOFT) 50 8-02 10-18 tablet by it y of mg tablet 00:00: 00:00 mouth in [place] 00 :00 the Medical morning. [place] traZODone 2021- No [id number] 50mg Take 1 [facility] 50 mg 8-02 10-18 tablet by ity of tablet 00:00: 00:00 mouth at [place] 00 :00 bedtime. [facility] SERTraline 2021- No [id number] 50mg Take 1 [facility] (ZOLOFT) 50 8-02 10-18 tablet by it y of mg tablet 00:00: 00:00 mouth in [place] 00 :00 the Medical morning. [place] traZODone 2021- No [id number] 50mg Take 1 [facility] 50 mg 8-02 10-18 tablet by ity of tablet 00:00: 00:00 mouth at [place] 00 :00 bedtime. [facility] SERTraline 2021- No [id number] 50mg Take 1 [facility] (ZOLOFT) 50 8-02 10-18 tablet by it y of mg tablet 00:00: 00:00 mouth in [place] 00 :00 the Medical morning. [place] traZODone 2021- No [id number] 50mg Take 1 [facility] 50 mg 8-02 10-18 tablet by ity of tablet 00:00: 00:00 mouth at [place] 00 :00 bedtime. [facility] SERTraline 2021- No [id number] 50mg Take 1 [facility] (ZOLOFT) 50 12-12 10-18 tablet by it y of mg tablet 00:00: 00:00 mouth in [place] 00 :00 the Medical morning. Branch sulfamethox 2021-2021- No [id number] 1{tbl} Take 1 [facility] azole-trime 12-12 08-06 tablet by it y of thoprim 00:00: 04:59 mouth in [place] (BACTRIM 00 :00 the Medical DS) 800-160 morning Branc h mg per and 1 tablet tablet in the evening. Do all this for 3 days. ibuprofen 2021-0 Yes [id number] 600mg Take 1 [facility] 600 mg 7-15 tablet by ity of tablet 00:00: mouth [place] 00 every 6 Medical (six) Branch hours as needed for Pain (scale 4-6). ibuprofen 2021-0 Yes [id number] 600mg Take 1 [facility] 600 mg 7-15 tablet by ity of tablet 00:00: mouth [place] 00 every 6 Medical (six) Branch hours as needed for Pain (scale 4-6). ibuprofen 2021-0 Yes [id number] 600mg Take 1 [facility] 600 mg 7-15 tablet by ity of tablet 00:00: mouth [place] 00 every 6 Medical (six) Branch hours as needed for Pain (scale 4-6). ibuprofen 2021-0 Yes [id number] 600mg Take 1 [facility] 600 mg 7-15 tablet by ity of tablet 00:00: mouth [place] 00 every 6 Medical (six) Branch hours as needed for Pain (scale 4-6). ibuprofen 2021-0 Yes [id number] 600mg Take 1 [facility] 600 mg 7-15 tablet by ity of tablet 00:00: mouth [place] 00 every 6 Medical (six) Branch hours as needed for Pain (scale 4-6). ibuprofen 2021-0 Yes [id number] 600mg Take 1 [facility] 600 mg 7-15 tablet by ity of tablet 00:00: mouth [place] 00 every 6 Medical (six) Branch hours as needed for Pain (scale 4-6). ibuprofen 2021-0 Yes [id number] 600mg Take 1 [facility] 600 mg 7-15 tablet by ity of tablet 00:00: mouth [place] 00 every 6 Medical (six) Branch hours as needed for Pain (scale 4-6). ibuprofen 2021-0 Yes [id number] 600mg Take 1 [facility] 600 mg 7-15 tablet by ity of tablet 00:00: mouth [place] 00 every 6 Medical (six) Branch hours as needed for Pain (scale 4-6). ibuprofen 2-0 Yes [id number] 600mg Take 1 [facility] 600 mg 7-15 tablet by ity of tablet 00:00: mouth [place] 00 every 6 Medical (six) Branch hours as needed for Pain (scale 4-6). ibuprofen 2021-0 Yes [id number] 600mg Take 1 [facility] 600 mg 7-15 tablet by ity of tablet 00:00: mouth [place] 00 every 6 Medical (six) Branch hours as needed for Pain (scale 4-6). ibuprofen 2021-0 Yes [id number] 600mg Take 1 [facility] 600 mg 7-15 tablet by ity of tablet 00:00: mouth [place] 00 every 6 Medical (six) Branch hours as needed for Pain (scale 4-6). ibuprofen 2021-0 2021- No [id number] 600mg Take 1 [facility] 600 mg 7-15 10-18 tablet by ity of tablet 00:00: 00:00 mouth [place] 00 :00 every 6 Medical (six) Branch hours as needed for Pain (scale 4-6). ibuprofen 2021-0 2021- No [id number] 600mg Take 1 [facility] 600 mg 7-15 10-18 tablet by ity of tablet 00:00: 00:00 mouth [place] 00 :00 every 6 Medical (six) Branch hours as needed for Pain (scale 4-6). ibuprofen 2021-0 2021- No [id number] 600mg Take 1 [facility] 600 mg 7-15 10-18 tablet by ity of tablet 00:00: 00:00 mouth [place] 00 :00 every 6 Medical (six) Branch hours as needed for Pain (scale 4-6). ibuprofen 2021-0 2021- No [id number] 600mg Take 1 [facility] 600 mg 7-15 10-18 tablet by ity of tablet 00:00: 00:00 [...] (scale 4-6). Indication s: acute pain bromphenira 2022-0 Yes [id number] 5mL Take 5 mL [facility] mine-pseudo 7-09 by mouth 4 it y of ephedrine-D 00:00: (four) [place] (BROMFED 00 times Medical DM) 2-30-10 daily as Bran ch mg/5 mL needed for syrup Congestion /Allergies or Cough. naproxen 2022-0 Yes [id number] 500mg Take 1 U nivers 500 mg 7-09 tablet by ity of tablet 00:00: mouth [place] 00 every 8 Medical (eight) Branch hours as needed for Pain (scale 4-6). cyclobenzap 2-0 Yes [id number] 10mg Take 1 Univers rine 10 mg 7-09 tablet by ity of tablet 00:00: mouth at [place] 00 bedtime as Medical needed for Branch Muscle Spasms. bromphenira 2-0 Yes [id number] 5mL Take 5 mL [facility] mine-pseudo 7-09 by mouth 4 it y of ephedrine-D 00:00: (four) [place] (BROMFED 00 times Medical DM) 2-30-10 daily as Bran ch mg/5 mL needed for syrup Congestion /Allergies or Cough. naproxen 2-0 Yes [id number] 500mg Take 1 U nivers 500 mg 7-09 tablet by ity of tablet 00:00: mouth [place] 00 every 8 Medical (eight) Branch hours as needed for Pain (scale 4-6). cyclobenzap 2-0 Yes [id number] 10mg Take 1 [facility] rine 10 mg 7-09 tablet by ity of tablet 00:00: mouth at [place] 00 bedtime as Medical needed for Branch Muscle Spasms. bromphenira 2022-0 Yes [id number] 5mL Take 5 mL [facility] mine-pseudo 7-09 by mouth 4 it y of ephedrine-D 00:00: (four) [place] (BROMFED 00 times Medical DM) 2-30-10 daily as Bran ch mg/5 mL needed for syrup Congestion /Allergies or Cough. naproxen 2022-0 Yes [id number] 500mg Take 1 U nivers 500 mg 7-09 tablet by ity of tablet 00:00: mouth [place] 00 every 8 Medical (eight) Branch hours as needed for Pain (scale 4-6). cyclobenzap 2021-0 Yes [id number] 10mg Take 1 [facility] rine 10 mg 7-09 tablet by ity of tablet 00:00: mouth at [place] 00 bedtime as Medical needed for Branch Muscle Spasms. bromphenira 2021-0 Yes [id number] 5mL Take 5 mL [facility] mine-pseudo 7-09 by mouth 4 it y of ephedrine-D 00:00: (four) [place] (BROMFED 00 times Medical DM) 2-30-10 daily as Bran ch mg/5 mL needed for syrup Congestion /Allergies or Cough. naproxen 2021-0 Yes [id number] 500mg Take 1 U nivers 500 mg 7-09 tablet by ity of tablet 00:00: mouth [place] 00 every 8 Medical (eight) Branch hours as needed for Pain (scale 4-6). cyclobenzap 2021-0 Yes [id number] 10mg Take 1 [facility] rine 10 mg 7-09 tablet by ity of tablet 00:00: mouth at [place] 00 bedtime as Medical needed for Branch Muscle Spasms. bromphenira 2021-0 Yes [id number] 5mL Take 5 mL [facility] mine-pseudo 7-09 by mouth 4 it y of ephedrine-D 00:00: (four) [place] [facility] (BROMFED 00 times Medical DM) 2-30-10 daily as Bran ch mg/5 mL needed for syrup Congestion /Allergies or Cough. naproxen 2021-0 Yes [id number] 500mg Take 1 [facility] 500 mg 7-09 tablet by ity of tablet 00:00: mouth [place] 00 every 8 Medical (eight) Branch hours as needed for Pain (scale 4-6). cyclobenzap 2-0 Yes [id number] 10mg Take 1 [facility] rine 10 mg 7-09 tablet by ity of tablet 00:00: mouth at [place] 00 bedtime as Medical needed for Branch Muscle Spasms. bromphenira 2-0 Yes [id number] 5mL Take 5 mL [facility] mine-pseudo 7-09 by mouth 4 it y of ephedrine-D 00:00: (four) [place] (BROMFED 00 times Medical DM) 2-30-10 daily as Bran ch mg/5 mL needed for syrup Congestion /Allergies or Cough. naproxen 2-0 Yes [id number] 500mg Take 1 [facility] 500 mg 7-09 tablet by ity of tablet 00:00: mouth [place] 00 every 8 Medical (eight) Branch hours as needed for Pain (scale 4-6). cyclobenzap 2021-0 Yes [id number] 10mg Take 1 [facility] rine 10 mg 7-09 tablet by ity of tablet 00:00: mouth at [place] 00 bedtime as Medical needed for Branch Muscle Spasms. bromphenira 2021-0 Yes [id number] 5mL Take 5 mL [facility] mine-pseudo 7-09 by mouth 4 it y of ephedrine-D 00:00: (four) [place] (BROMFED 00 times Medical DM) 2-30-10 daily as Bran ch mg/5 mL needed for syrup Congestion /Allergies or Cough. naproxen 2021-0 Yes [id number] 500mg Take 1 [facility] 500 mg 7-09 tablet by ity of tablet 00:00: mouth [place] 00 every 8 Medical (eight) Branch hours as needed for Pain (scale 4-6). cyclobenzap 2021-0 Yes [id number] 10mg Take 1 [facility] rine 10 mg 7-09 tablet by ity of tablet 00:00: mouth at [place] 00 bedtime as Medical needed for Branch Muscle Spasms. bromphenira 2021-0 Yes [id number] 5mL Take 5 mL [facility] mine-pseudo 7-09 by mouth 4 it y of ephedrine-D 00:00: (four) [place] (BROMFED 00 times Medical DM) 2-30-10 daily as Bran ch mg/5 mL needed for syrup Congestion /Allergies or Cough. naproxen 2-0 Yes [id number] 500mg Take 1 [facility] 500 mg 7-09 tablet by ity of tablet 00:00: mouth [place] 00 every 8 Medical (eight) Branch hours as needed for Pain (scale 4-6). cyclobenzap 2022-0 Yes [id number] 10mg Take 1 [facility] rine 10 mg 7-09 tablet by ity of tablet 00:00: mouth at [place] 00 bedtime as Medical needed for Branch Muscle Spasms. bromphenira 2-0 Yes [id number] 5mL Take 5 mL [facility] mine-pseudo 7-09 by mouth 4 it y of ephedrine-D 00:00: (four) [place] (BROMFED 00 times Medical DM) 2-30-10 daily as Bran ch mg/5 mL needed for syrup Congestion /Allergies or Cough. naproxen 2021-0 Yes [id number] 500mg Take 1 [facility] 500 mg 7-09 tablet by ity of tablet 00:00: mouth [place] 00 every 8 Medical (eight) Branch hours as needed for Pain (scale 4-6). cyclobenzap 2021-0 Yes [id number] 10mg Take 1 [facility] rine 10 mg 7-09 tablet by ity of tablet 00:00: mouth at [place] 00 bedtime as Medical needed for Branch Muscle Spasms. bromphenira 2021-0 Yes [id number] 5mL Take 5 mL [facility] mine-pseudo 7-09 by mouth 4 it y of ephedrine-D 00:00: (four) [place] (BROMFED 00 times Medical DM) 2-30-10 daily as Bran ch mg/5 mL needed for syrup Congestion /Allergies or Cough. naproxen 2021-0 Yes [id number] 500mg Take 1 [facility] 500 mg 7-09 tablet by ity of tablet 00:00: mouth [place] 00 every 8 Medical (eight) Branch hours as needed for Pain (scale 4-6). cyclobenzap 2021-0 Yes [id number] 10mg Take 1 [facility] rine 10 mg 7-09 tablet by ity of tablet 00:00: mouth at [place] 00 bedtime as Medical needed for Branch Muscle Spasms. bromphenira 2021-0 Yes [id number] 5mL Take 5 mL [facility] mine-pseudo 7-09 by mouth 4 it y of ephedrine-D 00:00: (four) [place] (BROMFED 00 times Medical DM) 2-30-10 daily as Bran ch mg/5 mL needed for syrup Congestion /Allergies or Cough. naproxen 2022-0 Yes [id number] 500mg Take 1 [facility] 500 mg 7-09 tablet by ity of tablet 00:00: mouth [place] 00 every 8 Medical (eight) Branch hours as needed for Pain (scale 4-6). cyclobenzap 2022-0 Yes [id number] 10mg Take 1 [facility] rine 10 mg 7-09 tablet by ity of tablet 00:00: mouth at [place] 00 bedtime as Medical needed for Branch Muscle Spasms. bromphenira 2021-0 Yes [id number] 5mL Take 5 mL [facility] mine-pseudo 7-09 by mouth 4 it y of ephedrine-D 00:00: (four) [place] (BROMFED 00 times Medical DM) 2-30-10 daily as Bran ch mg/5 mL needed for syrup Congestion /Allergies or Cough. bromphenira 2021-0 Yes [id number] 5mL Take 5 mL [facility] mine-pseudo 7-09 by mouth 4 it y of ephedrine-D 00:00: (four) [place] (BROMFED 00 times Medical DM) 2-30-10 daily as Bran ch mg/5 mL needed for syrup Congestion /Allergies or Cough. bromphenira 2021-0 Yes [id number] 5mL Take 5 mL [facility] mine-pseudo 7-09 by mouth 4 it y of ephedrine-D 00:00: (four) [place] (BROMFED 00 times Medical DM) 2-30-10 daily as Bran ch mg/5 mL needed for syrup Congestion /Allergies or Cough. bromphenira 2021-0 Yes [id number] 5mL Take 5 mL [facility] mine-pseudo 7-09 by mouth 4 it y of ephedrine-D 00:00: (four) [place] (BROMFED 00 times Medical DM) 2-30-10 daily as Bran ch mg/5 mL needed for syrup Congestion /Allergies or Cough. bromphenira 2021-0 Yes [id number] 5mL Take 5 mL [facility] mine-pseudo 7-09 by mouth 4 it y of ephedrine-D 00:00: (four) [place] (BROMFED 00 times Medical DM) 2-30-10 daily as Bran ch mg/5 mL needed for syrup Congestion /Allergies or Cough. bromphenira 2-0 Yes [id number] 5mL Take 5 mL [facility] mine-pseudo 7-09 by mouth 4 it y of ephedrine-D 00:00: (four) [place] (BROMFED 00 times Medical DM) 2-30-10 daily as Bran ch mg/5 mL needed for syrup Congestion /Allergies or Cough. bromphenira 2022-0 Yes [id number] 5mL Take 5 mL [facility] mine-pseudo 7-09 by mouth 4 it y of ephedrine-D 00:00: (four) [place] (BROMFED 00 times Medical DM) 2-30-10 daily as Bran ch mg/5 mL needed for syrup Congestion /Allergies or Cough. bromphenira 2021-0 Yes [id number] 5mL Take 5 mL [facility] mine-pseudo 7-09 by mouth 4 it y of ephedrine-D 00:00: (four) [place] (BROMFED 00 times Medical DM) 2-30-10 daily as Bran ch mg/5 mL needed for syrup Congestion /Allergies or Cough. bromphenira 2021-0 Yes [id number] 5mL Take 5 mL [facility] mine-pseudo 7-09 by mouth 4 it y of ephedrine-D 00:00: (four) [place] (BROMFED 00 times Medical DM) 2-30-10 daily as Bran ch mg/5 mL needed for syrup Congestion /Allergies or Cough. bromphenira 2021-0 Yes [id number] 5mL Take 5 mL [facility] mine-pseudo 7-09 by mouth 4 it y of ephedrine-D 00:00: (four) [place] (BROMFED 00 times Medical DM) 2-30-10 daily as Bran ch mg/5 mL needed for syrup Congestion /Allergies or Cough. bromphenira 2021-0 Yes [id number] 5mL Take 5 mL [facility] mine-pseudo 7-09 by mouth 4 it y of ephedrine-D 00:00: (four) [place] (BROMFED 00 times Medical DM) 2-30-10 daily as Bran ch mg/5 mL needed for syrup Congestion /Allergies or Cough. naproxen 2021-0 2021- No [id number] 500mg Take 1 [facility] 500 mg 7- 10-18 tablet by ity of tablet 00:00: 00:00 mouth [place] 00 :00 every 8 Medical (eight) Branch hours as needed for Pain (scale 4-6). cyclobenzap 2021-2021- No [id number] 10mg Take 1 [facility] rine 10 mg 7-09 10-18 tablet by ity of tablet 00:00: 00:00 mouth at [place] 00 :00 bedtime as Medical needed for Branch Muscle Spasms. naproxen No [id number] 500mg Take 1 [facility] 500 mg 7-09 10-18 tablet by ity of tablet 00:00: 00:00 mouth [place] 00 :00 every 8 Medical (eight) Branch hours as needed for Pain (scale 4-6). cyclobenzap 2021- No [id number] 10mg Take 1 [facility] rine 10 mg 7- 10-18 tablet by ity of tablet 00:00: 00:00 mouth at [place] 00 :00 bedtime as Medical needed for Branch Muscle Spasms. naproxen No [id number] 500mg Take 1 [facility] 500 mg 7- 10-18 tablet by ity of tablet 00:00: 00:00 mouth [place] 00 :00 every 8 Medical (eight) Branch hours as needed for Pain (scale 4-6). cyclobenzap No [id number] 10mg Take 1 [facility] rine 10 mg 7- 10-18 tablet by ity of tablet 00:00: 00:00 mouth at [place] 00 :00 bedtime as Medical needed for Branch Muscle Spasms. naproxen No [id number] 500mg Take 1 [facility] 500 mg 7- 10-18 tablet by ity of tablet 00:00: 00:00 mouth [place] 00 :00 every 8 Medical (eight) Branch hours as needed for Pain (scale 4-6). cyclobenzap No [id number] 10mg Take 1 [facility] rine 10 mg 7- 10-18 tablet by ity of tablet 00:00: 00:00 mouth at [place] 00 :00 bedtime as Medical needed for Branch Muscle Spasms. ibuprofen 0 Yes [id number] 605mg Take 30.25 [facility] 100 mg/5 mL 6-15 mL by ity of oral 00:00: mouth [place] 00 every 6 Medica l (six) Branch hours as needed for Pain (scale 4-6) or Temp > 38.5 C. ibuprofen 0 Yes [id number] 605mg Take 30.25 [facility] 100 mg/5 mL 6-15 mL by ity of oral 00:00: mouth [place] suspension 00 every 6 Medica l (six) Branch hours as needed for Pain (scale 4-6) or Temp > 38.5 C. ibuprofen 2021-0 Yes [id number] 605mg Take 30.25 [facility] 100 mg/5 mL 6-15 mL by ity of oral 00:00: mouth [place] suspension 00 every 6 Medica l (six) Branch hours as needed for Pain (scale 4-6) or Temp > 38.5 C. ibuprofen 2021-0 Yes [id number] 605mg Take 30.25 [facility] 100 mg/5 mL 6-15 mL by ity of oral 00:00: mouth [place] suspension 00 every 6 Medica l (six) Branch hours as needed for Pain (scale 4-6) or Temp > 38.5 C. ibuprofen 2021-0 Yes [id number] 605mg Take 30.25 [facility] 100 mg/5 mL 6-15 mL by ity of oral 00:00: mouth [place] suspension 00 every 6 Medica l (six) Branch hours as needed for Pain (scale 4-6) or Temp > 38.5 C. ibuprofen 2021-0 Yes [id number] 605mg Take 30.25 [facility] 100 mg/5 mL 6-15 mL by ity of oral 00:00: mouth [place] suspension 00 every 6 Medica l (six) Branch hours as needed for Pain (scale 4-6) or Temp > 38.5 C. ibuprofen 2021-0 Yes [id number] 605mg Take 30.25 [facility] 100 mg/5 mL 6-15 mL by ity of oral 00:00: mouth [place] suspension 00 every 6 Medica l (six) Branch hours as needed for Pain (scale 4-6) or Temp > 38.5 C. ibuprofen 2021-0 Yes [id number] 605mg Take 30.25 [facility] 100 mg/5 mL 6-15 mL by ity of oral 00:00: mouth [place] suspension 00 every 6 Medica l (six) Branch hours as needed for Pain (scale 4-6) or Temp > 38.5 C. ibuprofen 2021-0 Yes [id number] 605mg Take 30.25 [facility] 100 mg/5 mL 6-15 mL by ity of oral 00:00: mouth [place] suspension 00 every 6 Medica l (six) Branch hours as needed for Pain (scale 4-6) or Temp > 38.5 C. ibuprofen 2021-0 Yes [id number] 605mg Take 30.25 [facility] 100 mg/5 mL 6-15 mL by ity of oral 00:00: mouth [place] suspension 00 every 6 Medica l (six) Branch hours as needed for Pain (scale 4-6) or Temp > 38.5 C. ibuprofen Yes [id number] 605mg Take 30.25 [facility] 100 mg/5 mL 6-15 mL by ity of oral 00:00: mouth [place] suspension 00 every 6 Medica l (six) Branch hours as needed for Pain (scale 4-6) or Temp > 38.5 C. ibuprofen 2021- No [id number] 605mg Take 30.25 [facility] 100 mg/5 mL 6-15 10-18 mL by ity of oral 00:00: 00:00 mouth [place] suspension 00 :00 every 6 Medica l (six) Branch hours as needed for Pain (scale 4-6) or Temp > 38.5 C. ibuprofen 2021- No [id number] 605mg Take 30.25 [facility] 100 mg/5 mL 6-15 10-18 mL by ity of oral 00:00: 00:00 mouth [place] suspension 00 :00 every 6 Medica l (six) Branch hours as needed for Pain (scale 4-6) or Temp > 38.5 C. ibuprofen 2021- No [id number] 605mg Take 30.25 [facility] 100 mg/5 mL 6-15 10-18 mL by ity of oral 00:00: 00:00 mouth [place] suspension 00 :00 every 6 Medica l (six) Branch hours as needed for Pain (scale 4-6) or Temp > 38.5 C. ibuprofen 2021- No [id number] 605mg Take 30.25 [facility] 100 mg/5 mL 6-15 10-18 mL by ity of oral 00:00: 00:00 mouth [place] suspension 00 :00 every 6 Medica l (six) Branch hours as needed for Pain (scale 4-6) or Temp > 38.5 C. acetaminoph 2021- No [id number] 608mg Take 19 mL [facility] en 160 mg/5 6-15 08-02 by mouth ity of mL liquid 00:00: 00:00 every 6 [place] 00 :00 (six) Medical hours as Branch needed for Fever. DULoxetine 0 Yes [facility] 60 mg 5-27 ity of capsule 00:00: [place] 00 Medical Branch DULoxetine 2-0 Yes [facility] 60 mg 5-27 ity of capsule 00:00: [place] 00 Medical Branch DULoxetine 2-0 Yes [facility] 60 mg 5-27 ity of capsule 00:00: [place] [address] Medical Branch DULoxetine 2-0 Yes [facility] 60 mg 5-27 ity of capsule 00:00: [place] [address] Medical Branch DULoxetine 2-0 Yes [facility] 60 mg 5-27 ity of capsule 00:00: [place] 00 Medical Branch DULoxetine 2021-0 Yes [facility] 60 mg 5-27 ity of capsule 00:00: [place] [address] Medical Branch DULoxetine 2-0 Yes [facility] 60 mg 5-27 ity of capsule 00:00: [place] [address] Medical Branch DULoxetine 2-0 Yes [facility] 60 mg 5-27 ity of capsule 00:00: [place] [address] Medical Branch DULoxetine 2-0 Yes [facility] 60 mg 5-27 ity of capsule 00:00: [place] [address] Medical Branch DULoxetine 2021-0 Yes [facility] 60 mg 5-27 ity of capsule 00:00: [place] [address] Medical Branch DULoxetine 2021-0 Yes [facility] 60 mg 5-27 ity of capsule 00:00: [place] 00 Medical Branch DULoxetine 2021-0 2- No Un[facility] s 60 mg 5-27 10-18 ity of capsule 00:00: 00:00 [place] 00 :00 Medical Branch DULoxetine 2-0 2022- No Un[facility] s 60 mg 5-27 10-18 ity of capsule 00:00: 00:00 [place] 00 :00 Medical Branch DULoxetine 2-0 2022- No Un[facility] s 60 mg 5-27 10-18 ity of capsule 00:00: 00:00 [place] 00 :00 Medical Branch DULoxetine 2-0 2022- No Univer s 60 mg 5-27 10-18 ity of capsule 00:00: 00:00 [place] 00 :00 Medical Branch traZODone 2-0 2- No [facility] 50 mg 5-27 08-02 ity of tablet 00:00: 00:00 [place] 00 :00 Medical Branch mometasone 2-0 Yes [id number] 1{spray Use 1 [facility] 50 5-19 } [place] in ity of mcg/actuati 00:00: each [place] on nasal 00 nostril 2 Medica l spray (two) Branch times daily. mometasone 2021-0 Yes [id number] 1{spray Use 1 [facility] 50 5-19 } [place] in ity of mcg/actuati 00:00: each [place] on nasal 00 nostril 2 Medica l spray (two) Branch times daily. mometasone 2021-0 Yes [id number] 1{spray Use 1 [facility] 50 5-19 } [place] in ity of mcg/actuati 00:00: each [place] on nasal 00 nostril 2 Medica l spray (two) Branch times daily. mometasone 2021-0 Yes [id number] 1{spray Use 1 [facility] 50 5-19 } [place] in ity of mcg/actuati 00:00: each [place] on nasal 00 nostril 2 Medica l spray (two) Branch times daily. mometasone 2021-0 Yes [id number] 1{spray Use 1 [facility] 50 5-19 } [place] in ity of mcg/actuati 00:00: each [place] on nasal 00 nostril 2 Medica l spray (two) Branch times daily. mometasone 2021-0 Yes [id number] 1{spray Use 1 [facility] 50 5-19 } [place] in ity of mcg/actuati 00:00: each [place] on nasal 00 nostril 2 Medica l spray (two) Branch times daily. mometasone 2021-0 Yes [id number] 1{spray Use 1 [facility] 50 5-19 } [place] in ity of mcg/actuati 00:00: each [place] on nasal 00 nostril 2 Medica l spray (two) Branch times daily. mometasone 2021-0 Yes [id number] 1{spray Use 1 [facility] 50 5-19 } [place] in ity of mcg/actuati 00:00: each [place] on nasal 00 nostril 2 Medica l spray (two) Branch times daily. mometasone 2021-0 Yes [id number] 1{spray Use 1 [facility] 50 5-19 } [place] in ity of mcg/actuati 00:00: each [place] on nasal 00 nostril 2 Medica l spray (two) Branch times daily. mometasone 2021-0 Yes [id number] 1{spray Use 1 [facility] 50 5-19 } [place] in ity of mcg/actuati 00:00: each [place] on nasal 00 nostril 2 Medica l spray (two) Branch times daily. mometasone Yes [id number] 1{spray Use 1 [facility] 50 5-19 } [place] in ity of mcg/actuati 00:00: each [place] on nasal 00 nostril 2 Medica l spray (two) Branch times daily. mometasone 2021- No [id number] 1{spray Use 1 [facility] 50 5-19 10-18 } [place] in ity of mcg/actuati 00:00: 00:00 each [place] on nasal 00 :00 nostril 2 Medica l spray (two) Branch times daily. mometasone 2021- No [id number] 1{spray Use 1 [facility] 50 5-19 10-18 } [place] in ity of mcg/actuati 00:00: 00:00 each [place] on nasal 00 :00 nostril 2 Medica l spray (two) Branch times daily. mometasone 2021- No [id number] 1{spray Use 1 [facility] 50 5-19 10-18 } [place] in ity of mcg/actuati 00:00: 00:00 each [place] on nasal 00 :00 nostril 2 Medica l spray (two) Branch times daily. mometasone 2021- No [id number] 1{spray Use 1 [facility] 50 5-19 10-18 } [place] in ity of mcg/actuati 00:00: 00:00 each [place] on nasal 00 :00 nostril 2 Medica l spray (two) Branch times daily. cetirizine Yes [id number] 10mg Take 1 U nivers (ZYRTEC) 10 5-16 tablet by ity of mg tablet 00:00: mouth [place] 00 daily. Medical Branch cetirizine Yes [id number] 10mg Take 1 U nivers (ZYRTEC) 10 5-16 tablet by ity of mg tablet 00:00: mouth [place] 00 daily. Medical Branch cetirizine Yes [id number] 10mg Take 1 U nivers (ZYRTEC) 10 5-16 tablet by ity of mg tablet 00:00: mouth [place] 00 daily. Medical Branch cetirizine Yes [id number] 10mg Take 1 U nivers (ZYRTEC) 10 5-16 tablet by ity of mg tablet 00:00: mouth [place] 00 daily. [facility] Branch cetirizine Yes [id number] 10mg Take 1 U nivers (ZYRTEC) 10 5-16 tablet by ity of mg tablet 00:00: mouth [place] 00 daily. [facility] Branch cetirizine Yes [id number] 10mg Take 1 U nivers (ZYRTEC) 10 5-16 tablet by ity of mg tablet 00:00: mouth [place] 00 daily. [facility] Branch cetirizine Yes [id number] 10mg Take 1 U nivers (ZYRTEC) 10 5-16 tablet by ity of mg tablet 00:00: mouth [place] 00 daily. [facility] cetirizine Yes [id number] 10mg Take 1 U nivers (ZYRTEC) 10 5-16 tablet by ity of mg tablet 00:00: mouth [place] 00 daily. [facility] cetirizine Yes [id number] 10mg Take 1 U nivers (ZYRTEC) 10 5-16 tablet by ity of mg tablet 00:00: mouth [place] 00 daily. [facility] cetirizine Yes [id number] 10mg Take 1 U nivers (ZYRTEC) 10 5-16 tablet by ity of mg tablet 00:00: mouth [place] 00 daily. [facility] cetirizine Yes [id number] 10mg Take 1 U nivers (ZYRTEC) 10 5-16 tablet by ity of mg tablet 00:00: mouth [place] 00 daily. [facility] Branch cetirizine 2021- No [id number] 10mg Take 1 Univers (ZYRTEC) 10 5-16 10-18 tablet by it y of mg tablet 00:00: 00:00 mouth [place] 00 :00 daily. [facility] cetirizine 2021- No [id number] 10mg Take 1 [facility] (ZYRTEC) 10 5-16 10-18 tablet by it y of mg tablet 00:00: 00:00 mouth [place] 00 :00 daily. [facility] cetirizine 2021- No [id number] 10mg Take 1 [facility] (ZYRTEC) 10 5-16 10-18 tablet by it y of mg tablet 00:00: 00:00 mouth [place] 00 :00 daily. Medical Branch cetirizine 2021-0 2021- No [id number] 10mg Take 1 [facility] (ZYRTEC) 10 5-16 10-18 tablet by it y of mg tablet 00:00: 00:00 mouth [place] 00 :00 daily. Medical Branch DULoxetine 2-0 Yes [facility] 30 mg 5-09 ity of capsule 00:00: [place] 00 Medical Branch gabapentin 2-0 Yes [facility] 300 mg 5-09 ity of capsule 00:00: [place] 00 Medical Branch ondansetron 2-0 Yes Univer s 4 mg tablet 5-09 ity of 00:00: [place] 00 Medical Branch DULoxetine 2-0 Yes [facility] 30 mg 5-09 ity of capsule 00:00: [place] 00 Medical Branch gabapentin 2022-0 Yes [facility] 300 mg 5-09 ity of capsule 00:00: [place] 00 Medical Branch ondansetron 2022-0 Yes Univer s 4 mg tablet 5-09 ity of 00:00: [place] 00 Medical Branch DULoxetine 2-0 Yes [facility] 30 mg 5-09 ity of capsule 00:00: [place] 00 Medical Branch gabapentin 2022-0 Yes [facility] 300 mg 5-09 ity of capsule 00:00: [place] 00 Medical Branch ondansetron 2022-0 Yes Univer s 4 mg tablet 5-09 ity of 00:00: [place] 00 Medical Branch DULoxetine 2022-0 Yes [facility] 30 mg 5-09 ity of capsule 00:00: [place] 00 Medical Branch gabapentin 2022-0 Yes [facility] 300 mg 5-09 ity of capsule 00:00: [place] 00 Medical Branch ondansetron 2022-0 Yes Univer s 4 mg tablet 5-09 ity of 00:00: [place] 00 Medical Branch DULoxetine 2022-0 Yes [facility] 30 mg 5-09 ity of capsule 00:00: [place] 00 Medical Branch gabapentin 2022-0 Yes [facility] 300 mg 5-09 ity of capsule 00:00: [place] 00 Medical Branch ondansetron 2022-0 Yes Univer s 4 mg tablet 5-09 ity of 00:00: [place] 00 Medical Branch DULoxetine 2022-0 Yes [facility] 30 mg 5-09 ity of capsule 00:00: [place] 00 Medical Branch gabapentin 2022-0 Yes [facility] 300 mg 5-09 ity of capsule 00:00: [place] 00 Medical Branch ondansetron 2022-0 Yes Univer s 4 mg tablet 5-09 ity of 00:00: [place] 00 Medical Branch DULoxetine 2022-0 Yes [facility] 30 mg 5-09 ity of capsule 00:00: [place] 00 Medical Branch gabapentin 2022-0 Yes [facility] 300 mg 5-09 ity of capsule 00:00: [place] 00 Medical Branch ondansetron 2022-0 Yes Univer s 4 mg tablet 5-09 ity of 00:00: [place] 00 Medical Branch DULoxetine 2022-0 Yes [facility] 30 mg 5-09 ity of capsule 00:00: [place] 00 Medical Branch gabapentin 2022-0 Yes [facility] 300 mg 5-09 ity of capsule 00:00: [place] 00 Medical Branch ondansetron 2022-0 Yes Univer s 4 mg tablet 5-09 ity of 00:00: [place] [address] Medical Branch DULoxetine 2022-0 Yes [facility] 30 mg 5-09 ity of capsule 00:00: [place] [address] Medical Branch gabapentin 2022-0 Yes [facility] 300 mg 5-09 ity of capsule 00:00: [place] [address] Medical Branch ondansetron 2022-0 Yes Univer s 4 mg tablet 5-09 ity of 00:00: [place] 00 Medical Branch DULoxetine 2022-0 Yes [facility] 30 mg 5-09 ity of capsule 00:00: [place] [address] Medical Branch gabapentin 2022-0 Yes [facility] 300 mg 5-09 ity of capsule 00:00: [place] 00 Medical Branch ondansetron 2022-0 Yes Univer s 4 mg tablet 5-09 ity of 00:00: [place] 00 Medical Branch DULoxetine 2022-0 Yes [facility] 30 mg 5-09 ity of capsule 00:00: [place] [address] Medical Branch gabapentin 2022-0 Yes [facility] 300 mg 5-09 ity of capsule 00:00: [place] 00 Medical Branch ondansetron 2022-0 Yes Univer s 4 mg tablet 5-09 ity of 00:00: [place] 00 Medical Branch DULoxetine 2022-0 2022- No Univer s 30 mg 5-09 10-18 ity of capsule 00:00: 00:00 [place] 00 :00 Medical Branch gabapentin 2022-0 2022- No Univer s 300 mg 09-18 ity of capsule 00:00: 00:00 [place] 00 :00 Medical Branch ondansetron 2022-0 2- No Unive rs 4 mg tablet 09-18 ity of 00:00: 00:00 [place] 00 :00 Medical Branch DULoxetine 2022-0 2- No Univer s 30 mg 09-18 ity of capsule 00:00: 00:00 [place] 00 :00 Medical Branch gabapentin 2022-0 2- No Univer s 300 mg 09-18 ity of capsule 00:00: 00:00 [place] 00 :00 Medical Branch ondansetron 2022-0 2- No Unive rs 4 mg tablet 09-18 ity of 00:00: 00:00 [place] 00 :00 Medical Branch DULoxetine 2022-0 2- No Univer s 30 mg 09-18 ity of capsule 00:00: 00:00 [place] 00 :00 Medical Branch gabapentin 2022-0 2- No Univer s 300 mg 09-18 ity of capsule 00:00: 00:00 [place] 00 :00 Medical Branch ondansetron 2022-0 2- No Unive rs 4 mg tablet 09-18 ity of 00:00: 00:00 [place] 00 :00 Medical Branch DULoxetine 2022-0 2- No Univer s 30 mg 09-18 ity of capsule 00:00: 00:00 [place] 00 :00 Medical Branch gabapentin 2022-0 2- No Univer s 300 mg 09-18 ity of capsule 00:00: 00:00 [place] 00 :00 Medical Branch ondansetron 2022-0 2022- No Unive rs 4 mg tablet 09-18 ity of 00:00: 00:00 [place] 00 :00 Medical Branch amLODIPine 2022-0 Yes [facility] 5 mg tablet 4-22 ity of 00:00: [place] 00 Medical Branch amLODIPine 2022-0 Yes 5mg Take 5 mg Un sushant 5 mg tablet 4-22 by mouth. ity of 00:00: [place] 00 Medical Branch amLODIPine 2022-0 Yes [facility] 5 mg tablet 4-22 ity of 00:00: [place] 00 Medical Branch amLODIPine 2022-0 Yes 5mg Take 5 mg Un sushant 5 mg tablet 4-22 by mouth. ity of 00:00: [place] [facility] Branch amLODIPine 2022-0 Yes [facility] 5 mg tablet 4-22 ity of 00:00: [place] [facility] Branch amLODIPine 2022-0 Yes 5mg Take 5 mg Un sushant 5 mg tablet 4-22 by mouth. ity of 00:00: [place] [facility] Branch amLODIPine 2022-0 Yes [facility] 5 mg tablet 4-22 ity of 00:00: [place] [facility] Branch amLODIPine 2022-0 Yes 5mg Take 5 mg Un sushant 5 mg tablet 4-22 by mouth. ity of 00:00: [place] [facility] Branch amLODIPine 2022-0 Yes [facility] 5 mg tablet 4-22 ity of 00:00: [place] [facility] Branch amLODIPine 2022-0 Yes 5mg Take 5 mg Un sushant 5 mg tablet 4-22 by mouth. ity of 00:00: [place] [facility] amLODIPine 2022-0 Yes [facility] 5 mg tablet 4-22 ity of 00:00: [place] [facility] amLODIPine 2022-0 Yes 5mg Take 5 mg Un sushant 5 mg tablet 4-22 by mouth. ity of 00:00: [place] [facility] amLODIPine 2022-0 Yes Univers 5 mg tablet 4-22 ity of 00:00: [place] [facility] amLODIPine 2022-0 Yes 5mg Take 5 mg Un sushant 5 mg tablet 4-22 by mouth. ity of 00:00: [place] [facility] amLODIPine 2022-0 Yes [facility] 5 mg tablet 4-22 ity of 00:00: [place] [facility] Branch amLODIPine 2022-0 Yes 5mg Take 5 mg Un sushant 5 mg tablet 4-22 by mouth. ity of 00:00: [place] [facility] amLODIPine 2022-0 Yes Univers 5 mg tablet 4-22 ity of 00:00: [place] [facility] amLODIPine 2022-0 Yes 5mg Take 5 mg Un sushant 5 mg tablet 4-22 by mouth. ity of 00:00: [place] [facility] amLODIPine 2022-0 Yes Univers 5 mg tablet 4-22 ity of 00:00: [place] [facility] amLODIPine 2022-0 Yes 5mg Take 5 mg Un sushant 5 mg tablet 4-22 by mouth. ity of 00:00: [place] 00 [facility] amLODIPine 2022-0 Yes Univers 5 mg tablet 09-01 ity of 00:00: [place] 00 [facility] amLODIPine 2022-0 Yes 5mg Take 5 mg Un sushant 5 mg tablet 09-01 by mouth. ity of 00:00: [place] 00 [facility] amLODIPine 2022-0 2022- No Univer s 5 mg tablet 09-01 ity of 00:00: 00:00 [place] 00 :00 [facility] amLODIPine 2022-0 2022- No 5mg Take 5 mg U nivers 5 mg tablet 09-01 by mouth. it y of 00:00: 00:00 [place] 00 :00 [facility] amLODIPine 2022-0 2022- No Univer s 5 mg tablet 09-01 ity of 00:00: 00:00 [place] 00 :00 [facility] amLODIPine 2022-0 2022- No 5mg Take 5 mg U nivers 5 mg tablet 09-01 by mouth. it y of 00:00: 00:00 [place] 00 :00 [facility] amLODIPine 2022-0 2022- No Univer s 5 mg tablet 09-01 ity of 00:00: 00:00 [place] 00 :00 [facility] amLODIPine 2022-0 2022- No 5mg Take 5 mg U nivers 5 mg tablet 09-01 by mouth. it y of 00:00: 00:00 [place] 00 :00 [facility] amLODIPine 2022-0 2022- No Univer s 5 mg tablet 09-01 ity of 00:00: 00:00 [place] 00 :00 [facility] amLODIPine 2022-0 2022- No 5mg Take 5 mg U nivers 5 mg tablet 09-0118 by mouth. it y of 00:00: 00:00 [place] 00 :00 [facility] buPROPion 2022-0 Yes Univers XL 150 mg 4-20 ity of 24 hr 00:00: [place] tablet 00 Medical [facility] buPROPion 2-0 Yes Univers XL 150 mg 4-20 ity of 24 hr 00:00: [place] tablet 00 Medical Branch buPROPion 2-0 Yes Univers XL 150 mg 4-20 ity of 24 hr 00:00: [place] tablet 00 Medical [facility] buPROPion 2022-0 Yes Univers XL 150 mg 4-20 ity [...] ity of 24 hr 00:00: [place] tablet [facility] buPROPion Yes Univers XL 150 mg 4-20 ity of 24 hr 00:00: [place] tablet Medical Branch buPROPion Yes Univers XL 150 mg 4-20 ity of 24 hr 00:00: [place] tablet [facility] buPROPion Yes Univers XL 150 mg 4-20 ity of 24 hr 00:00: [place] tablet [facility] buPROPion 2022- No 150mg Take 150 Un sushant XL 150 mg 4-20 04-21 mg by ity of 24 hr 00:00: 04:59 mouth. [place] tablet 00 :00 [facility] buPROPion 2022- No 150mg Take 150 Un sushant XL 150 mg 4-20 04-21 mg by ity of 24 hr 00:00: 04:59 mouth. [place] tablet 00 :00 [facility] buPROPion 2022- No 150mg Take 150 Un sushant XL 150 mg 4-20 04-21 mg by ity of 24 hr 00:00: 04:59 mouth. [place] tablet 00 :00 [facility] buPROPion 2022- No 150mg Take 150 Un sushant XL 150 mg 4-20 04-21 mg by ity of 24 hr 00:00: 04:59 mouth. [place] tablet 00 :00 [facility] buPROPion 2022- No 150mg Take 150 Un sushant XL 150 mg 4-20 04-21 mg by ity of 24 hr 00:00: 04:59 mouth. [place] tablet 00 :00 [facility] buPROPion 2022- No 150mg Take 150 [...] [place] tablet 00 :00 Medical [facility] buPROPion 2021- No Univers XL 150 mg 4-20 10-18 ity of 24 hr 00:00: 00:00 [place] tablet 00 :00 Medical Branch buPROPion 2021- No 150mg Take 150 Un sushant XL 150 mg 4-20 10-18 mg by ity of 24 hr 00:00: 00:00 mouth. [place] tablet 00 :00 Medical [facility] buPROPion 2021- No Univers XL 150 mg 4-20 10-18 ity of 24 hr 00:00: 00:00 [place] tablet 00 :00 Medical Branch buPROPion 2021- No 150mg Take 150 Un sushant XL 150 mg 4-20 10-18 mg by ity of 24 hr 00:00: 00:00 mouth. [place] tablet 00 :00 Medical [facility] buPROPion 2021- No Univers XL 150 mg 4-20 10-18 ity of 24 hr 00:00: 00:00 [place] tablet 00 :00 Medical [facility] buPROPion 2021- No 150mg Take 150 Un sushant XL 150 mg 4-20 10-18 mg by ity of 24 hr 00:00: 00:00 mouth. [place] tablet 00 :00 [facility] buPROPion 2021- No Univers XL 150 mg 4-20 10-18 ity of 24 hr 00:00: 00:00 [place] tablet 00 :00 Medical [facility] buPROPion 2021- No 150mg Take 150 Un sushant XL 150 mg 4-20 10-18 mg by ity of 24 hr 00:00: 00:00 mouth. [place] tablet 00 :00 Medical Branch [...] by ity of tablet 00:00: mouth 2 [place] 00 (two) Medical times Branch daily with meals. losartan 50 2020-05 Yes 50mg Take 1 Univ ers mg tablet 2-30 tablet by ity o f 00:00: mouth 2 [place] 00 (two) Medical times Branch daily. carvediloL 2020-05- No 25mg Take 1 Univ ers 25 mg 2-30 10-18 tablet by ity of tablet 00:00: 00:00 mouth 2 [place] 00 :00 (two) Medical times Branch daily with meals. losartan 50 2020-05- No 50mg Take 1 Uni vers mg tablet 2-30 10-18 tablet by ity of 00:00: 00:00 mouth 2 [place] 00 :00 (two) Medical times Branch daily. carvediloL 2020-05- No 25mg Take 1 Univ ers 25 mg 2-30 10-18 tablet by ity of tablet 00:00: 00:00 mouth 2 [place] 00 :00 (two) Medical times Branch daily with meals. losartan 50 2020-05- No 50mg Take 1 Uni vers mg tablet 2-30 10-18 tablet by ity of 00:00: 00:00 mouth 2 [place] 00 :00 (two) Medical times Branch daily. carvediloL 2020-05- No 25mg Take 1 Univ ers 25 mg 2-30 10-18 tablet by ity of tablet 00:00: 00:00 mouth 2 [place] 00 :00 (two) Medical times Branch daily with meals. losartan 50 2020-05- No 50mg Take 1 Uni vers mg tablet 2-30 10-18 tablet by ity of 00:00: 00:00 mouth 2 [place] 00 :00 (two) Medical times Branch daily. carvediloL 2020-05- No 25mg Take 1 Univ ers 25 mg 2-30 10-18 tablet by ity of tablet 00:00: 00:00 mouth 2 [place] 00 :00 (two) Medical times Branch daily with meals. losartan 50 2020-2021- No 50mg Take 1 Uni vers mg tablet 2-30 10-18 tablet by ity of 00:00: 00:00 mouth 2 [place] 00 :00 (two) Medical times Branch daily. FLUoxetine Yes [...] Medical 20 mg QPM Branch methocarbam Yes [employer] of 500mg Take 1 Univers oL [...] ity of mg tablet 00:00: mouth 2 [place] (two) Medical times Branch daily. lidocaine 5 Yes Renal colic 1{patch Apply 1 Univers % (700 3-12 on right } Patch to ity o f mg/patch) 00:00: side area(s) [place] patch 00 every 24 Medical (twenty-fo Branch ur) hours as needed for Localized pain. topiramate Yes 25mg Take 1 Unive rs 25 mg 1-05 tablet by ity of tablet 00:00: mouth 2 [place] (two) Medical times Branch daily. Immunizations Ordered Filled Immunization Date Status Comments [facility] e Immunization Name Name Influenza Virus 2022-02-27 Completed Universit y of Vaccine [facility], 00:00:00 [place] Me dical Preserv and ABX Branch Free 6 MO-64 YRS Influenza Virus 2022-02-27 Completed Universit y of Vaccine [facility], 00:00:00 [place] Me dical Preserv and ABX Branch Free 6 MO-64 YRS Influenza Virus 2022-02-27 Completed Universit y of Vaccine [facility], 00:00:00 [place] Me dical Preserv and ABX Branch Free 6 MO-64 YRS Influenza Virus 2022-02-27 Completed Universit y of Vaccine [facility], 00:00:00 [place] Me dical Preserv and ABX Branch Free 6 MO-64 YRS Influenza Virus 2022-02-27 Completed Universit y of Vaccine [facility], 00:00:00 [place] Me dical Preserv and ABX Branch Free 6 MO-64 YRS Influenza Virus 2022-02-27 Completed Universit y of Vaccine [facility], 00:00:00 [place] Me dical Preserv and ABX Branch Free 6 MO-64 YRS Influenza Virus 2022-02-27 Completed Universit y of Vaccine [facility], 00:00:00 [place] Me dical Preserv and ABX Branch Free 6 MO-64 YRS Influenza Virus 2022-02-27 Completed Universit y of Vaccine [facility], 00:00:00 [place] Me dical Preserv and ABX Branch Free 6 MO-64 YRS Influenza Virus 2022-02-27 Completed Universit y of Vaccine [facility], 00:00:00 [place] Me dical Preserv and ABX Branch Free 6 MO-64 YRS Influenza Virus 2022-02-27 Completed Universit y of Vaccine [facility], 00:00:00 [facility] dical Preserv and ABX Branch Free 6 MO-64 YRS Influenza Virus 2022-02-27 Completed Universit y of Vaccine [facility] IM, 00:00:00 [facility] dical Preserv and ABX Branch Free 6 MO-64 YRS Influenza Virus 2021-06-11 Completed Universit y of Vaccine 00:00:00 [facility] Influenza Virus 2021-06-11 Completed Universit y of Vaccine 00:00:00 [facility] Influenza Virus 2021-06-11 Completed Universit y of Vaccine 00:00:00 [facility] Influenza Virus 2021-06-11 Completed Universit y of Vaccine 00:00:00 [facility] Influenza Virus 2021-06-11 Completed Universit y of Vaccine 00:00:00 [facility] Influenza Virus 2021-06-11 Completed Universit y of Vaccine 00:00:00 [facility] Influenza Virus 2021-06-11 Completed Universit y of Vaccine 00:00:00 [facility] Influenza Virus 2021-06-11 Completed Universit y of Vaccine 00:00:00 [facility] Influenza Virus 2021-06-11 Completed Universit y of Vaccine 00:00:00 [facility] Influenza Virus 2021-06-11 Completed Universit y of Vaccine 00:00:00 [facility] Influenza Virus 2021-06-11 Completed Universit y of Vaccine 00:00:00 [facility] Influenza Virus 2021-06-11 Completed Universit y of Vaccine 00:00:00 [facility] Influenza Virus 2021-06-11 Completed Universit y of Vaccine 00:00:00 [facility] Influenza Virus 2021-06-11 Completed Universit y of Vaccine 00:00:00 [facility] Influenza Virus 2021-06-11 Completed Universit y of Vaccine 00:00:00 [facility] Influenza Virus 2021-06-11 Completed Universit y of Vaccine 00:00:00 [facility] Influenza Virus 2021-06-11 Completed Universit y of Vaccine 00:00:00 [facility] Influenza Virus 2021-06-11 Completed Universit y of Vaccine 00:00:00 [facility] Influenza Virus 2021-06-11 Completed Universit y of Vaccine 00:00:00 [facility] Influenza Virus 2021-06-11 Completed Universit y of Vaccine 00:00:00 [facility] Influenza Virus 2021-06-11 Completed Universit y of Vaccine 00:00:00 [facility] Influenza Virus 2021-06-11 Completed Universit y of Vaccine 00:00:00 [facility] Influenza Virus 2020-05-19 Completed Universit y of Vaccine 00:00:00 [facility] Influenza Virus 2020-05-19 Completed Universit y of Vaccine 00:00:00 [facility] Influenza Virus 2020-05-19 Completed Universit y of Vaccine 00:00:00 [facility] Influenza Virus 2020-05-19 Completed Universit y of Vaccine 00:00:00 [facility] Influenza Virus 2020-05-19 Completed Universit y of Vaccine 00:00:00 [facility] Influenza Virus 2020-05-19 Completed Universit y of Vaccine 00:00:00 [facility] Influenza Virus 2020-05-19 Completed Universit y of Vaccine 00:00:00 [facility] Influenza Virus 2020-05-19 Completed Universit y of Vaccine 00:00:00 [facility] Influenza Virus 2020-05-19 Completed Universit y of Vaccine 00:00:00 [facility] Influenza Virus 2020-05-19 Completed Universit y of Vaccine 00:00:00 [facility] Influenza Virus 2020-05-19 Completed Universit y of Vaccine 00:00:00 [facility] Influenza Virus 2020-05-19 Completed Universit y of Vaccine 00:00:00 [facility] Influenza Virus 2020-05-19 Completed Universit y of Vaccine 00:00:00 [facility] Influenza Virus 2020-05-19 Completed Universit y of Vaccine 00:00:00 [facility] Influenza Virus 2020-05-19 Completed Universit y of Vaccine 00:00:00 [facility] Influenza Virus 2020-05-19 Completed Universit y of Vaccine 00:00:00 [place] [facility] Influenza Virus 2020-05-19 Completed Universit y of Vaccine 00:00:00 [place] [facility] Influenza Virus 2020-05-19 Completed Universit y of Vaccine 00:00:00 [facility] Influenza Virus 2020-05-19 Completed Universit y of Vaccine 00:00:00 [facility] Influenza Virus 2020-05-19 Completed Universit y of Vaccine 00:00:00 [facility] Influenza Virus 2020-05-19 Completed Universit y of Vaccine 00:00:00 [facility] Influenza Virus 2020-05-19 Completed Universit y of Vaccine 00:00:00 [facility] Influenza Virus 2020-05-19 Completed Universit y of Vaccine 00:00:00 [facility] Influenza Virus 2020-05-16 Completed Universit y of [...] (ADACEL) 2019-05-21 Completed University of VACCINE 00:00:00 [facility] TDAP (ADACEL) 2019-05-21 Completed University of VACCINE 00:00:00 [facility] TDAP (ADACEL) 2019-05-21 Completed University of VACCINE 00:00:00 [facility] TDAP (ADACEL) 2019-05-21 Completed University of VACCINE 00:00:00 [facility] TDAP (ADACEL) 2019-05-21 Completed University of VACCINE 00:00:00 [facility] TDAP (ADACEL) 2019-05-21 Completed University of VACCINE 00:00:00 [facility] TDAP (ADACEL) 2019-05-21 Completed University of VACCINE 00:00:00 [facility] TDAP (ADACEL) 2019-05-21 Completed University of VACCINE 00:00:00 [facility] TDAP (ADACEL) 2019-05-21 Completed University of VACCINE 00:00:00 [facility] TDAP (ADACEL) 2019-05-21 Completed University of VACCINE 00:00:00 [facility] TDAP (ADACEL) 2019-05-21 Completed University of VACCINE 00:00:00 [facility] TDAP (ADACEL) 2019-05-21 Completed University of VACCINE 00:00:00 [facility] TDAP (ADACEL) 2019-05-21 Completed University of VACCINE 00:00:00 [facility] TDAP (ADACEL) 2019-05-21 Completed University of VACCINE 00:00:00 [facility] TDAP (ADACEL) 2019-05-21 Completed University of VACCINE 00:00:00 [facility] TDAP (ADACEL) 2019-05-21 Completed University of VACCINE 00:00:00 [facility] TDAP (ADACEL) 2019-05-21 Completed University of VACCINE 00:00:00 [facility] TDAP (ADACEL) 2019-05-21 Completed University of VACCINE 00:00:00 [facility] TDAP (ADACEL) 2019-05-21 Completed University of VACCINE 00:00:00 [facility] TDAP (ADACEL) 2019-05-21 Completed University of VACCINE 00:00:00 [facility] TDAP (ADACEL) 2019-05-21 Completed University of VACCINE 00:00:00 [facility] TDAP (ADACEL) 2019-05-21 Completed University of VACCINE 00:00:00 [facility] TDAP (ADACEL) 2019-05-21 Completed University of VACCINE 00:00:00 [facility] Influenza Virus 2019-02-06 Completed Universit y of Vaccine Quad .5 mL 00:00:00 [facility] [place] 6+ MO Branch Influenza Virus 2019-02-06 Completed [...] y of Vaccine Quad .5 mL 00:00:00 [place] [facility] 6+ [place] Branch Influenza Virus 2019-02-06 Completed Universit y of Vaccine [facility] .5 mL 00:00:00 [place] [facility] 6+ [place] Branch Influenza Virus 2019-02-06 Completed Universit y of Vaccine [facility] .5 mL 00:00:00 [place] [facility] 6+ [place] Branch Influenza Virus 2019-02-06 Completed Universit y of Vaccine [facility] .5 mL 00:00:00 [place] [facility] 6+ [place] Branch Influenza Virus 2019-02-06 Completed Universit y of Vaccine [facility] .5 mL 00:00:00 [place] [facility] 6+ [place] Branch Influenza Virus [...] y of Vaccine Quad .5 mL 00:00:00 [place] [facility] 6+ [place] Branch Influenza Virus 2019-02-06 Completed Universit y of Vaccine [facility] .5 mL 00:00:00 [place] [facility] 6+ [place] Branch Influenza Virus 2019-02-06 Completed Universit y of Vaccine [facility] .5 mL 00:00:00 [place] [facility] 6+ [place] Branch Influenza Virus 2019-02-06 Completed Universit y of Vaccine Quad .5 mL 00:00:00 [place] [facility] 6+ [place] Branch Influenza Virus [...] y of Vaccine Quad .5 mL 00:00:00 [place] [facility] 6+ [place] Branch Vital Signs Vital Name Observation Time Observation Value Comments Source Systolic blood 2022-03-15 19:23:00 128 mm[Hg] Univer sity of pressure [facility] Diastolic blood 2022-03-15 19:23:00 89 mm[Hg] Unive rsity of pressure [facility] Heart rate 2022-03-15 19:23:00 104 /min Universi ty [facility] Body weight 2022-03-15 19:23:00 60.328 kg Universi ty [facility] BMI 2022-03-15 19:23:00 25.13 kg/m2 Universi ty [facility] Oxygen saturation in 2022-03-15 19:23:00 98 /min University of Arterial blood by [place] [facility] Pulse oximetry [place] Systolic blood 2022-03-15 15:02:00 115 mm[Hg] Univer sity of pressure [facility] Diastolic blood 2022-03-15 15:02:00 70 mm[Hg] Unive rsity of pressure [facility] Heart rate 2022-03-15 15:02:00 85 /min Universi ty [facility] Respiratory rate 2022-03-15 15:02:00 20 /[facility] Oxygen saturation in 2022-03-15 15:02:00 99 /min University of Arterial blood by [place] [employer] Pulse oximetry [place] Body temperature 2022-03-15 13:38:00 36.94 Irene Univ ersity of [facility] Body height 2022-03-15 13:38:00 154.9 cm Universi ty [facility] Body weight 2022-03-15 13:38:00 54.432 kg Universi ty of [place] [facility] BMI 2022-03-15 13:38:00 22.67 kg/m2 Universi ty of [place] [facility] Systolic blood 2022-03-11 16:30:00 124 mm[Hg] Univer sity of pressure [place] [facility] Diastolic blood 2022-03-11 16:30:00 88 mm[Hg] Unive rsity of pressure [place] [facility] Heart rate 2022-03-11 16:30:00 93 /min Universi ty of [place] [facility] Body temperature 2022-03-11 16:30:00 36.67 Irene Univ ersity of [place] [facility] Respiratory rate 2022-03-11 16:30:00 14 /min Univ ersity of [place] [facility] Oxygen saturation in 2022-03-11 16:30:00 100 /min University of Arterial blood by [employer] Pulse oximetry Branch Body height 2022-03-11 14:19:00 154.9 cm Universi ty of [place] [facility] Body weight 2022-03-11 14:19:00 58.968 kg Universi ty of [place] [facility] BMI 2022-03-11 14:19:00 24.56 kg/m2 Universi ty of [place] [facility] Systolic blood 2022-02-27 14:14:00 140 mm[Hg] Univer sity of pressure [place] [facility] Diastolic blood 2022-02-27 14:14:00 90 mm[Hg] Unive rsity of pressure [place] [facility] Heart rate 2022-02-27 14:14:00 103 /min Universi ty of [place] [facility] Body height 2022-02-27 14:14:00 154.9 cm Universi ty of [place] [facility] Body weight 2022-02-27 14:14:00 59.194 kg Universi ty of [place] [facility] BMI 2022-02-27 14:14:00 24.66 kg/m2 Universi ty of [place] [facility] Oxygen saturation in 2022-02-27 14:14:00 100 /min University of Arterial blood by [email or web address] yessi Pulse oximetry Branch Systolic blood 2022-02-27 13:19:00 131 mm[Hg] Univer sity of pressure [place] [facility] Diastolic blood 2022-02-27 13:19:00 86 mm[Hg] Unive rsity of pressure [place] [facility] Heart rate 2022-02-27 13:19:00 102 /min Universi ty of [place] [facility] Body temperature 2022-02-27 13:19:00 36.33 Irene Univ ersity of [place] [facility] Body height 2022-02-27 13:19:00 154.9 cm Universi ty of [place] [facility] Body weight 2022-02-27 13:19:00 58.968 kg Universi ty of [place] [facility] BMI 2022-02-27 13:19:00 24.56 kg/m2 Universi ty of [place] [facility] Oxygen saturation in 2022-02-27 13:19:00 99 /min University of Arterial blood by [place] [facility]i Pulse oximetry Branch Systolic blood 2022-02-21 08:06:00 135 mm[Hg] Univer sity of pressure [place] [facility] Diastolic blood 2022-02-21 08:06:00 97 mm[Hg] Unive rsity of pressure [place] [facility] Heart rate 2022-02-21 08:06:00 98 /min Universi ty of [place] [facility] Respiratory rate 2022-02-21 08:06:00 16 /min Univ ersity of [place] [facility] Oxygen saturation in 2022-02-21 08:06:00 97 /min University of Arterial blood by [place] [facility] y[facility]i Pulse oximetry Branch Body temperature 2022-02-21 06:16:00 36.94 Irene Univ ersity of [place] [facility] Body height 2022-02-21 06:16:00 154.9 cm Universi ty of [place] [facility] Body weight 2022-02-21 06:16:00 60.963 kg Universi ty of [place] [facility] BMI 2022-02-21 06:16:00 25.39 kg/m2 Universi ty of [place] [facility] Systolic blood 2022 20:08:00 136 mm[Hg] Univer sity of pressure [place] [facility] Diastolic blood 2022 20:08:00 96 mm[Hg] Unive rsity of pressure [place] [facility] Heart rate 2022 20:08:00 100 /min Universi ty of [place] [facility] Respiratory rate 2022 20:08:00 20 /min Univ ersity of [place] [facility] Oxygen saturation in 2022 20:08:00 98 /min [facility] of Arterial blood by [place] [facility] yess[facility] Pulse oximetry Branch Body temperature 2022 16:56:00 37.06 Irene Univ ersity of [place] [facility] Body weight 2022 16:56:00 54.432 kg Universi ty of [place] [facility] BMI 2022 16:56:00 22.67 kg/m2 Universi ty of [place] [facility] Systolic blood 2022-02-05 14:31:00 128 mm[Hg] Univer sity of pressure [place] [facility] Diastolic blood 2022-02-05 14:31:00 84 mm[Hg] Unive rsity of pressure [place] [facility] Heart rate 2022-02-05 14:31:00 86 /min Universi ty of [place] [facility] Body temperature 2022-02-05 14:31:00 37.89 Irene Univ ersity of [place] [facility] Respiratory rate 2022-02-05 14:31:00 18 /min Univ ersity of [place] [facility] Body height 2022-02-05 14:31:00 154.9 cm Universi ty of [place] [facility] Body weight 2022-02-05 14:31:00 54.432 kg Universi ty of [place] [facility] BMI 2022-02-05 14:31:00 22.67 kg/m2 Universi ty of [place] [facility] Oxygen saturation in 2022-02-05 14:31:00 98 /min University of Arterial blood by [facility] Pulse oximetry Branch Systolic blood 2022-01-18 14:50:00 144 mm[Hg] Univer sity of pressure [place] [facility] Diastolic blood 2022-01-18 14:50:00 92 mm[Hg] Unive rsity of pressure [place] [facility] Heart rate 2022-01-18 14:50:00 94 /min Universi ty of [place] [facility] Respiratory rate 2022-01-18 14:50:00 20 /min Univ ersity of [place] [facility] Oxygen saturation in 2022-01-18 14:50:00 99 /min University of Arterial blood by [facility] Pulse oximetry Branch Body weight 2022-01-18 10:18:00 54.432 kg Universi ty of [place] [facility] BMI 2022-01-18 10:18:00 22.67 kg/m2 Universi ty of [place] [facility] Body temperature 2022-01-18 10:15:00 36.72 Irene Univ ersity of [place] [facility] Systolic blood 2022-01-15 15:48:26 125 mm[Hg] [facility] [place] [facility] Diastolic blood 2022-01-15 15:48:26 85 mm[Hg] [facility]ive [facility] Heart rate 2022-01-15 15:48:26 95 /min [facility] [place] [facility] Respiratory rate 2022-01-15 15:48:26 18 /min [facility] [place] [facility] Oxygen saturation in 2022-01-15 15:48:26 98 /min University of Arterial blood by [place] [facility] yessi Pulse oximetry Branch Body temperature 2022-01-15 13:32:00 37.11 Irene [facility] [place] [facility] Body height 2022-01-15 13:32:00 154.9 cm [facility] Body weight 2022-01-15 13:32:00 54.432 kg [facility] [place] [facility] [place] BMI 2022-01-15 13:32:00 22.67 kg/m2 [facility] Systolic blood 2022-01-09 00:37:11 127 mm[Hg] [facility]iver [facility] Diastolic blood 2022-01-09 00:37:11 90 mm[Hg] Unive [facility] Heart rate 2022-01-09 00:37:11 94 /min [facility] [place] [facility] [place] Body temperature 2022-01-09 00:37:11 37.11 Irene [facility] [place] [facility] Respiratory rate 2022-01-09 00:37:11 16 /min [facility] Oxygen saturation in 2022-01-09 00:37:11 97 /min University of Arterial blood by [place] [facility] yessi Pulse oximetry Branch Body height 2022-01-08 23:03:00 154.9 cm [facility] Body weight 2022-01-08 23:03:00 58.06 kg [facility] BMI 2022-01-08 23:03:00 24.19 kg/m2 [facility] Systolic blood 2021-12-12 18:00:00 126 mm[Hg] [facility] Diastolic blood 2021-12-12 18:00:00 87 mm[Hg] [facility] Heart rate 2021-12-12 18:00:00 86 /min [facility] Body temperature 2021-12-12 18:00:00 36.89 Irene [facility] Respiratory rate 2021-12-12 18:00:00 18 /min [facility] Body height 2021-12-12 18:00:00 154.9 cm [facility] Body weight 2021-12-12 18:00:00 57.153 kg [facility] BMI 2021-12-12 18:00:00 23.81 kg/m2 [facility] Procedures Procedure Date / Time Performing Clinician Source Performed CT ABDOMEN PELVIS WO 2022-03-15 14:09:04 Anna Gould [facility] URINALYSIS 2022-03-15 13:53:00 Anna Gould [facility] POCT TEST 2022-03-15 13:52:00 Anna Gould [facility] CONSENT/REFUSAL FOR 2022-03-15 13:37:02 Doctor Unassigned, No [facility] [place] [facility] Name [facility] POCT TEST 2022-03-11 14:59:00 Angelica Viveros [facility] FLU VACC ([id number]), 6 2022-02-27 13:34:55 Vijay Martinez [facility] [place]-64 YRS, .5ML, IM, Medical [facility] QUAD (FLUCELVAX) NOTICE OF PRIVACY 2022-02-21 06:06:30 Doctor Unassigned, No [facility] PRACTICES Name [facility] CONSENT/REFUSAL FOR 2022-02-21 06:03:41 Doctor Unassigned, No [facility]REAT[facility] Name [facility] XR ANKLE <3 VW RIGHT 2022 17:56:42 Maggie Hamilton [facility] CT ABDOMEN PELVIS W 2022 17:44:17 [facility] TRAUMA CERVICAL 2022 17:43:49 Maggie Hamilton [facility] SPINE WO CONTRAST [facility] POCT TEST 2022 17:27:00 Maggie Hamilton [facility] COMP. METABOLIC PANEL 2022 17:17:00 Maggie Hamilton [facility] ([id number]) Medical Branch CBC WITH DIFF 2022 17:17:00 Maggie Hamilton [facility] CONSENT/REFUSAL FOR 2022 16:53:13 Doctor Unassigned, No Un [facility] DIAGNOSIS AND TREATMENT Name Medical [place] US GALL BLADDER 2022-01-18 12:31:09 Bernardo Levy [facility] US PELVIS COMPLETE WITH 2022-01-18 12:21:13 Melvin Zhao [facility] TRANSVAGINAL [facility] CT ABDOMEN PELVIS W 2022-01-18 11:20:50 Melvin Zhao [facility] CONTRAST [facility] POCT TEST 2022-01-18 10:57:00 Jayy Kennedy [facility] COVID-19 (ID NOW RAPID 2022-01-18 10:57:00 Jayy Kennedy [facility] TESTING) Medical Branch URINALYSIS 2022-01-18 10:47:00 Jayy Kennedy [facility] LIPASE 2022-01-18 10:29:00 Jayy Kennedy [facility] TEST, SERUM 2022-01-18 10:29:00 Jayy Kennedy [facility] HEPATIC FUNCTION PANEL 2022-01-18 10:29:00 Jayy Kennedy [facility] ([id number]) (ALB,T.PRO,BILI Medical Branch T,BU/BC,ALT,AST,ALK PHOS) BASIC METABOLIC PANEL 2022-01-18 10:29:00 Jayy Kennedy [facility] (NA, K, CL, CO2, Medical Branch GLUCOSE, BUN, CREATININE, CA) CBC WITH DIFF 2022-01-18 10:29:00 Jayy Kennedy [facility] CONSENT/REFUSAL FOR 2022-01-18 10:13:31 Doctor Unassigned, No [facility] Name [facility] CT HEAD WO CONTRAST 2022-01-15 15:22:29 Danita [facility] TEST, SERUM 2022-01-15 14:36:00 Danita [facility] BASIC METABOLIC PANEL 2022-01-15 14:36:00 Danita [facility] (NA, K, CL, CO2, Medical Branch GLUCOSE, BUN, CREATININE, CA) CBC WITH DIFF 2022-01-15 14:36:00 Danita [facility] CONSENT/REFUSAL FOR 2022-01-15 13:28:12 Doctor Unassigned, No [facility] DIAGNOSIS AND TREATMENT Name [facility] XR CERVICAL SPINE 4 VW 2022-01-09 00:29:16 Gabriela [facility] XR LUMBAR SPINE 4 VW 2022-01-09 00:29:16 Gabriela [facility] XR SPINE THORACIC 3 VW 2022-01-09 00:29:16 Gabriela [facility] URINALYSIS 2022-01-08 23:50:00 Gabriela [facility] CONSENT/REFUSAL FOR 2022-01-08 22:51:08 Doctor Unassigned, No [facility] DIAGNOSIS AND TREATMENT [facility] GALV ONLY - VAGINAL 2021-12-12 18:37:00 Prasanna Vargas [facility] PATHOGENS BY NUCLEIC Medical [facility] ACID TESTING URINE CULTURE 2021-12-12 18:32:00 Prasanna Vargas [facility] o f [facility] POCT TEST 2021-12-12 18:31:00 Prasanna Vargas [facility] POCT URINALYSIS W/O 2021-12-12 18:31:00 Vragas Prasanna [facility] SPECIFIC GRAVITY [facility] Plan of Care Planned Activity Planned Date Details Comments Source Future Scheduled 2029-05-21 DTaP,Tdap,and Td [facility] Test 00:00:00 Vaccines (2 - Td) Medical Br anch [code = DTaP,Tdap,and Td Vaccines (2 - Td)] Future Scheduled 2021-09-06 Depression screening Uni [facility] Test 00:00:00 (procedure) [code = Medical Branch 490020501] Future Scheduled 2016-02-19 Screening for [facility] Test 00:00:00 malignant neoplasm Medical B ranch of cervix (procedure) [code = 918842906] Future Scheduled 2013 Hepatitis C [facility] Test 00:00:00 screening Medical Branch (procedure) [code = 178818581] Future Scheduled 2011 SARS-CoV-2 [facility] Test 00:00:00 (COVID-19) Vaccine Medical [facility] ranch (1) [code = SARS-CoV-2 (COVID-19) Vaccine (1)] Future Scheduled 2006 HPV VACCINES (1 - Univer [facility] Test 00:00:00 2-dose series) [code Medical Branch = HPV VACCINES (1 - 2-dose series)] Encounters Start End Encounter Admission Attending Care Care Encounter Source Date/Time Date/Time Type Type Clinicians Facility Department ID 2021-03-14 Emergency [facility] [id number] Univers 03:14:31 ity of [facility] 2021-03-13 Emergency [facility] [id number] Univers 20:05:20 ity of [facility] 2021-03-13 Emergency [facility] [id number] Univers 12:48:28 ity of [facility] 2021-03-13 Emergency [facility] [id number] Univers 02:43:51 ity of [facility] 2021-03-13 Emergency [facility] [id number] Univers 00:27:09 ity of [facility] 2021-03-12 Emergency [facility] [id number] Univers 22:10:36 ity of [facility] 2021-03-12 Emergency [facility] [id number] Univers 20:04:05 ity of [facility] 2021-03-12 Emergency [facility] [id number] Univers 15:25:05 ity of [facility] 2021-03-12 Emergency [facility] [id number] Univers 11:43:36 ity of [facility] 2021-03-12 Emergency [facility] [id number] Univers 07:41:37 ity of [facility] 2021-03-12 Emergency [facility] [id number] Univers 05:43:47 ity of [facility] 2021-03-12 Emergency [facility] [id number] Univers 03:43:41 ity of [facility] 2021-03-12 Emergency [facility] [id number] Univers 01:31:27 ity of [facility] 2021-03-12 Emergency X [facility] E[facility] [id number] Univers 00:56:44 ity of [facility] 2021-03-12 Emergency [facility] [id number] Univers 00:56:31 ity of [facility] 2021-03-11 Emergency [facility] [id number] Univers 17:47:02 ity of [facility] 2021-03-11 Emergency [facility] [id number] Univers 16:27:15 ity of [facility] 2021-03-11 Emergency [facility] [id number] Univers 12:00:58 ity of [facility] 2021-03-11 Emergency [facility] [id number] Univers 10:33:59 ity of [facility] 2021-03-11 Emergency [facility] [id number] Univers 01:36:52 ity of [facility] 2021-03-10 Emergency [facility] [id number] Univers 23:35:34 ity of [facility] 2021-03-10 Emergency [facility] [id number] Univers 19:06:16 ity of [facility] 2021-03-10 Emergency [facility] [id number] Univers 12:39:47 ity of [facility] 2021-03-10 Emergency [facility] [id number] Univers 06:54:04 ity of [facility] 2021-03-09 Outpatient P [facility] CHR[facility] [id number] Univers 13:25:44 ity of [facility] 2021-03-09 Outpatient P [facility] [id number] Univers 13:08:01 ity of [facility] 2021-03-09 Outpatient P [facility] [id number] Univers 12:37:25 ity of [facility] 2021-03-09 Outpatient P [facility] [id number] Univers 11:51:20 ity of [facility] 2022-05-15 2022-05-15 Outpatient R ANGELA [facility] [id number] Univers 09:20:00 09:20:00 BENNETT ity [facility] 2022-03-21 2022-03-21 Telephone Yoselin [facility] 1.2.840.114 [id number] Univers 00:00:00 00:00:00 [facility] [id number] ity of [place] [id number] [place] TOÑO?BLEA [id number] Nh dical KNEY 092 [facility] OFFICE [facility] 2022-03-15 2022-03-15 Outpatient [facility] [id number] Univers 14:00:00 14:36:19 BINPEARL itchino o f [facility] 2022-03-15 2022-03-15 Office [facility] 1.2.840.114 [id number] Univers 14:00:00 14:36:19 [facility] [id number] ity [facility] 4.2.7.2.[address] [place] [facility] [phone] Nh dical NAL 059 [facility] 2022-03-15 2022-03-15 Emergency X [facility] E[facility] [id number] Univers 08:40:00 10:47:00 ANNA chino [facility] 2022-03-15 2022-03-15 Emergency [facility] 1.2.840.114 [id number] Univers 08:40:00 10:47:00 Anna [place] 350.1.13.10 i ty [facility] 4.2.7.2.686 [place] [id number] [facility] [address] [place] 2022-03-14 2022-03-14 Outpatient R PRASANNA VARGAS [facility] [id number] Univers 10:30:00 10:30:00 ity [facility] 2022-03-11 2022-03-11 Emergency [facility] E[facility] [id number] Univers 09:22:00 12:15:00 ANGELICA itchino [facility] 2022-03-11 2022-03-11 Emergency [facility] 1.2.840.114 [id number] Univers 09:22:00 12:15:00 Angelica LAWSON [id number] i ty of [place] 4.2.7.2.686 [place] [facility] [phone] [place] [address] [place] 2022-03-06 2022-03-06 Outpatient Farzana PUGH [facility] [id number] Univers 08:30:00 08:30:00 KASSANDRA chino [facility] 2022-03-02 2022-03-02 Telephone Yoselin [facility] 1.2.840.114 [id number] Univers 00:00:00 00:00:00 [facility] [id number] ity of [place] 4.2.7.2.686 [place] TOÑO?BLEA [id number] [address] OFFICE [facility] 2022-02-27 2022-02-27 Outpatient Farzana PUGH [facility] [id number] Univers 09:30:00 09:49:42 KASSANDRA chino [facility] 2022-02-27 2022-02-27 Office [facility] 1.2.840.114 [id number] Univers 09:30:00 09:49:42 Visit [facility] [id number] it y of [place] 4.2.7.2.686 [place] TOÑO?BLEA [id number] [address] OFFICE [facility] 2022-02-27 2022-02-27 Office Juan [facility] 1.2.840.114 [id number] Univers 08:00:00 09:12:17 Visit [facility] [id number] it y of [place] 4.2.7.2.686 [place] TOÑO?BLEA [id number] [address] MEDICAL OFFICE [facility] 2022-02-26 2022-02-26 Outpatient Farzana PUGH [facility] [id number] Univers 11:30:00 11:30:00 KASSANDRA lechuga [facility] 2022-02-21 2022-02-21 Emergency X ALFONSO [facility] ERT [id number] Univers 01:20:00 03:44:00 MAGGIE lechuga [facility] 2022-02-21 2022-02-21 Emergency Alfonso [facility] 1.2.840.114 [id number] Univers 01:20:00 03:44:00 Maggiera Marleny LAWSON [id number] ity of [facility] 4.2.7.2.686 [facility] [id number] [address] 2022-02-19 2022-02-19 Patient Robb [facility] 1.2.840.114 [id number] Univers 00:00:00 00:00:00 Secure Msg Kendal Amaral HEALTH [id number] ity of [place] 4.2.7.2.686 [place] TOÑO?BLEA [id number] [address] OFFICE [facility] 2022-02-19 2022-02-19 Patient Robb [facility] 1.2.840.114 [id number] Univers 00:00:00 00:00:00 Secure Msg Kendal Amaral HEALTH [id number] ity of [place] 4.2.7.2.686 [place] TOÑO?BLEA [id number] [address] 2022-02-19 2022-02-19 Patient Suzette [facility] 1.2.298.208 [id number] Univers 00:00:00 00:00:00 Secure Msg Ade SAM [id number] ity of [facility] 4.[place].2.686 [place] [id number] [address] 2022 2022 Emergency X [facility] ERT [id number] Univers 11:58:00 15:13:00 MAGGIE ity of [facility] 2022 2022 Emergency [facility] 1.2.840.114 [id number] Univers 11:58:00 15:13:00 Maggie LAWSON 350.1.13.10 ity of [place] 4.2.7.2.686 [facility] [id number] [address] 2022-02-09 2022-02-09 Outpatient R BRANDON [facility] [id number] Univers 09:00:00 09:00:00 CIRCKET davis [facility] 2022-02-06 2022-02-06 Outpatient R JUAN [facility] [id number] Univers 10:00:00 10:00:00 VIJAY lechuga [facility] 2022-02-05 2022-02-05 Nurse Nurse, Filippo [facility] 1.2.840.114 [id number] Univers 09:45:00 10:05:00 Visit Ileana Medrano [facility] 350.1.13.10 ity of [place] 4.2.7.2.686 [place] TOÑO?BLEA [id number] [facility] [address] [place] MEDICAL OFFICE BUILDING 2022-02-05 2022-02-05 Outpatient R OLIVER [facility] [id number] Univers 09:20:00 09:20:00 FLACO maradiagachino o susan [facility] 2022-01-26 2022-01-26 Case Prasanna Vargas [facility] 1.2.020.250 [id number] Univers 00:00:00 00:00:00 Management Cam LULU [id number] ity [facility] 4.2.7.2.686 [place] [id number] Nh dicaliyah [facility] [address] BUILDING 2022-01-22 2022-01-22 Outpatient R JUAN [facility] [id number] Univers 11:00:00 11:00:00 VIJAY lechuga [facility] 2022-01-18 2022-01-18 Emergency X GARDENIA [facility] ERT [id number] Univers 05:17:00 10:25:00 BERNARDO lechuga [facility] 2022-01-18 2022-01-18 Emergency KennedyJayy W TRAUMA 1.2.840.11 [id number] Univers 05:17:00 10:25:00 Bernardo Levy [place] 350.1.13.10 ity [facility].2.7.2.686 [place] [id number] [address] 2022-01-15 2022-01-15 Emergency X DANITA [facility] ERT [id number] Univers 08:34:00 10:49:00 MAURA lechuga [facility] 2022-01-15 2022-01-15 Emergency Larry Perez R [facility] 1.2.840.1 [id number] Univers 08:34:00 10:49:00 Maura Samayoa 350.1.13.10 ity [facility] 4.2.7.2.686 [facility] [id number] [address] 2022-01-08 2022-01-08 Emergency X GABRIELA, [facility] ERT [id number] Univers 18:04:00 20:09:00 HUMBERTO [facility] 2022-01-08 2022-01-08 Emergency [facility] 1.2.840.114 [id number] Univers 18:04:00 20:09:00 Humberto LAWSON 350.1.13.10 i ty [facility] 4.2.7.2.686 [facility] [id number] [address] 2021-12-12 2021-12-12 Outpatient R DEYVI [facility] [id number] Univers 13:30:00 13:40:21 [facility] [place] 2021-12-12 2021-12-12 Office Prasanna Vargas Jm [facility] 1.2.840.114 [id number] Univers 13:30:00 13:40:21 Visit Teto Carnes 350.1.13.10 ity [facility] 4.2.7.2.686 [facility] PROFESSIO [id number] [address] 2021-12-12 2021-12-12 Outpatient Farzana CARNES [facility] [id number] Univers 13:30:00 13:40:21 TETO [facility] 2021-12-12 2021-12-12 Outpatient R DEYVI [facility] [id number] Univers 13:30:00 13:40:21 [facility] [place] 2021-12-11 2021-12-11 Outpatient R SUZETTE [facility] [id number] Univers 16:15:00 16:15:00 ADE [facility] 2021-12-05 2021-12-05 Outpatient R [facility]ELKANATIONWIDE [facility] [id number] Univers 14:15:00 14:15:00 [facility] 2021-11-28 2021-11-28 Emergency X ERROL, [facility] ERT [id number] Univers 08:49:00 11:02:00 KARON y [facility] 2021-11-28 2021-11-28 Emergency [facility] 1.2.840.114 [id number] Univers 08:49:00 11:02:00 Karon [facility] 350.1.13.10 i ty of [place] 4.2.7.2.686 [facility] [id number] [address] 2021-11-24 2021-11-24 Emergency X DEV, Kaycee [facility] ERT [id number] Univers 18:14:00 21:04:00 [facility] 2021-11-24 2021-11-24 Emergency Kaycee Méndez [facility] 1.2.840.114 [id number] Univers 18:14:00 21:04:00 Sharlene [place] 350.1.13.10 i ty of [place] 4.2.7.2.686 [facility] [id number] [address] 2021-11-24 2021-11-24 Telephone Brandon [facility] 1.2.840.114 [id number] Univers 00:00:00 00:00:00 Cricket Lopez [employer] 350.1.13.10 ity [facility] 4.2.7.2.686 [place] as MATERNAL [id number] Med ical & CHILD [address] [place] [address] 2021-11-20 2021-11-20 Patient [facility] 1.2.840.114 [id number] Univers 00:00:00 00:00:00 [facility] 350.1.13.10 ity [facility] 4.2.7.2.686 [place] TOÑO?BLEA [id number] Nh alessandra[address] MEDICAL OFFICE BUILDING 2021-11-19 2021-11-19 JORDAN Ramirez 1.2.840.114 [id number] Univers 00:00:00 00:00:00 (Out) Leslie ARCE 350.1.13.10 it y of [facility] 4.2.7.2.686 [place] as [id number] [address] 2021-11-18 2021-11-18 Outpatient R [facility]IVERNATIONW[facility] [id number] Univers 10:41:40 23:59:00 FLACO maradiagay o f [facility] 2021-11-18 2021-11-18 Hospital [facility] 1.2.220.853 [id number] Univers 10:41:40 23:59:00 Encounter [employer] 350.1.13.10 ity of [place] 4.2.7.2.686 [place] TOÑO?BLEA [id number] [facility] [address] [place] MEDICAL OFFICE BUILDING 2021-11-18 2021-11-18 Urgent [facility] 1.2.840.114 [id number] Univers 10:20:00 10:53:20 Care [facility] 350.1.13.10 i ty of [place] 4.2.7.2.686 [place] as TOÑO?BLEA [id number] [facility] [address] [place] MEDICAL OFFICE [facility] 2021-11-09 2021-11-09 Outpatient R APURVA [facility] [id number] Univers 10:30:00 10:30:00 CELINA ity [facility] 2021-10-25 2021-10-25 Urgent Ileana Medrano [facility] ..840.114 [id number] Univers 13:20:00 13:20:00 Care [facility] 350.1.13.10 ity of [place] 4.2.7.2.686 [place] TOÑO?BLEA [id number] [address] MEDICAL OFFICE BUILDING 2021-10-25 2021-10-25 Outpatient R HARDEEP [facility] [id number] Univers 13:20:00 12:47:59 ILEANA lechuga [facility] 2021-10-25 2021-10-25 Patient Juan [facility] 1.2.840.114 [id number] Univers 00:00:00 00:00:00 Secure Msg [employer] 350.1.13.10 ity of [place] 4.2.7.2.686 [place] as TOÑO?BLEA [id number] [facility] [address] [facility] OFFICE [facility] 2021-10-25 2021-10-25 Telephone Cotta, [facility] [id number] Univers 00:00:00 00:00:00 Vijay HEALTH 350.1.13.10 it y [facility] 4.2.7.2.686 [place] TOÑO?BLEA [id number] [facility] 0[address] [facility] OFFICE [facility] 2021-10-25 2021-10-25 Telephone Provider, [facility] 1.2.840.114 [id number] Univers 00:00:00 00:00:00 Ang Db HEALTH 350.1.13.10 it y of Urgent Care [place] 4.2.7.2.686 [place] TOÑO?BLEA [id number] [facility] [address] [facility] OFFICE [facility] 2021-10-25 2021-10-25 Telephone Nurse, Filippo [facility] 1.2.840.114 [id number] Univers 00:00:00 00:00:00 Db Urgent HEALTH 350.1.13.10 ity of Care [place] 4.2.7.2.686 [place] TOÑO?BLEA [id number] [facility] [address] [place] [facility] 2021-10-24 2021-10-24 Outpatient Farzana OMALLEY [facility] [id number] Univers 10:15:00 10:15:00 ROMULO [facility] 2021-10-24 2021-10-24 Outpatient Farzana OMALLEY [facility] [id number] Univers 10:15:00 10:15:00 ROMULO lechuga [facility] 2021-10-11 2021-10-11 Outpatient Farzana OMALLEY [facility] [id number] Univers 09:30:00 09:30:00 ROMULO lechuga [facility] 2021-10-10 2021-10-10 Outpatient PRASANNA LOOMIS [facility] [id number] Univers 13:30:00 13:30:00 ity [facility] 2021-10-10 2021-10-10 Outpatient PRASANNA LOOMIS [facility] [id number] Univers 13:30:00 13:30:00 ity of [facility] 2021-10-10 2021-10-10 Outpatient R PRASANNA VARGAS [facility] [id number] Univers 13:30:00 13:30:00 ity of [facility] 2021-10-10 2021-10-10 Outpatient R PRASANNA VARGAS [facility] [id number] Univers 13:30:00 13:30:00 ity of [facility] 2021-10-10 2021-10-10 Outpatient R ALICIA PRASANNA [facility] [id number] Univers 13:30:00 13:30:00 ity of [facility] 2021-10-10 2021-10-10 Outpatient R ALICIA [facility] [id number] Univers 13:30:00 13:30:00 ity of [facility] 2021-10-10 2021-10-10 Outpatient R ALICIA [facility] [id number] Univers 13:30:00 13:30:00 ity of [facility] 2021-10-05 2021-10-05 Patient Zamudio [facility] 1.2.840.114 [id number] Univers 00:00:00 00:00:00 Secure g Kendal Amaral HEALTH 350.1.13.10 ity of [place] 4.2.7.2.686 [place] as TOÑO?BLEA [id number] [address] OFFICE [facility] 2021-10-05 2021-10-05 Patient Robb [facility] 1.2.840.114 [id number] Univers 00:00:00 00:00:00 Secure Msg Kendal Amaral HEALTH 350.1.13.10 ity of [place] 4.2.7.2.686 [place] as TOÑO?BLEA [phone] [address] 2021-10-04 2021-10-04 Pre Visit HILARIO Rodriguez 1.2.627.885 [id number] Univers 00:00:00 00:00:00 Outreach Melia TELLO 350.1.13.10 [place] of [place].2.[place] [phone] [address] 2021-09-28 2021-09-28 [facility] 1.2.840.114 [id number] Univers 13:30:00 13:45:00 Visit Celina Cannon [facility]13.10 [facility] 4.2.7.2.[place] [phone] [address] 2021-09-28 2021-09-28 Outpatient R APURVA [facility] [id number] Univers 13:30:00 13:30:00 CELINA [facility] 2021-09-28 2021-09-28 [facility] [id number] Univers 13:30:00 13:30:00 [facility]-09-28 2021-09-28 Patient [facility] 1.2.840.114 [id number] Univers 00:00:00 00:00:00 Secure Msg Celina Cannon [facility].13.10 [facility] 4.2.7.2.686 [place] [phone] [address] 2021-09-27 2021-09-27 Outpatient R DEYVI, [facility] [id number] Univers 14:00:00 14:00:00 TETO [facility] 2021-09-27 2021-09-27 Outpatient R ADITI [facility] [id number] Univers 09:30:00 09:30:00 [facility] 2021-09-27 2021-09-27 Outpatient R ADITI [facility] [id number] Univers 09:30:00 09:30:00 [facility] 2021-09-27 2021-09-27 Outpatient R ADITI [facility] [id number] Univers 09:30:00 09:30:00 [facility] 2021-09-26 2021-09-26 Outpatient R AKINLYNSEY [facility] [id number] Univers 10:45:00 10:45:00 CRICKET lechuga o f [facility] 2021-09-26 2021-09-26 Outpatient R AKINSIPE, [facility] [id number] Univers 10:45:00 10:45:00 CRICKET hireny o f [facility] 2021-09-26 2021-09-26 Patient Juan [facility] 1.2.840.114 [id number] Univers 00:00:00 00:00:00 Secure Ms Vijay HEALTH 350.1.13.10 ity of [place] 4.2.7.2.686 [place] as TOÑO?BLEA [id number] Nh dicaliyah [facility] [address] [place] MEDICAL OFFICE [facility] 2021-09-26 2021-09-26 Patient Juan [facility] 1.2.840.114 [id number] Univers 00:00:00 00:00:00 Secure Msg Vijay HEALTH 350.1.13.10 ity of [place] 4.2.7.2.686 [place] TOÑO?BLEA [phone] [facility] [address] [place] MEDICAL OFFICE [facility] 2021-09-25 2021-09-25 Urgent Flaco Boyd [facility] 1..840. 114 [id number] Univers 10:20:00 11:10:42 Care Song, [facility] 350.1.13.10 ity [facility] 4.2.7.2.686 [place] as TOÑO?BLEA [id number] [facility] [address] [place] MEDICAL OFFICE [facility] 2021-09-25 2021-09-25 Outpatient R OLIVER [facility] [id number] Univers 10:20:00 11:10:42 FLACO lechuga o f [facility] 2021-09-25 2021-09-25 Outpatient R OLIVER [facility] [id number] Univers 10:20:00 10:20:00 FLACO ity o f [facility] 2021-09-25 2021-09-25 Outpatient R PRASANNA VARGAS [facility] [id number] Univers 10:00:00 10:00:00 ity of [facility] 2021-09-25 2021-09-25 Telephone [facility] ..840.114 [id number] Univers 00:00:00 00:00:00 [facility] 350.1.13.10 i ty of [place] 4.2.7.2.686 [place] as TOÑO?BLEA [phone] Me dical KNEY [address] [place] MEDICAL OFFICE [facility] 2021-09-25 2021-09-25 Patient Prasanna Vargas [facility] 1.2.704.882 [id number] Univers 00:00:00 00:00:00 Secure Msg Cam [place] 350.1.13.10 ity of [place].2.7.2.[place] [phone] Me dical NAL 134 [facility] 2021-09-25 2021-09-25 Telephone Brandon [facility] 1.2.840.114 [id number] Univers 00:00:00 00:00:00 Cricket Lopez [employer] OFFICER 350.1.13.10 ity of [facility] 4.2.7.2.686 [place] as MATERNAL [phone] Med ical & CHILD 107 [facility] 2021-09-25 2021-09-25 Telephone Apurva [facility] 1.2.256.920 [id number] Univers 00:00:00 00:00:00 Celina Cannon FLACO 350.1.13.10 ity of [facility] 4.2.7.2.686 [place] [phone] [address] 2021-09-15 2021-09-15 Patient Robb [facility] 1.2.840.114 [id number] Univers 00:00:00 00:00:00 Secure Msg Kendal Amaral HEALTH 350.1.13.10 ity of [place] 4.2.7.2.686 [place] as TOÑO?BLEA [id number] Nh dicaliyah [place] [address] [place] MEDICAL OFFICE [facility] 2021-09-15 2021-09-15 Patient Robb [facility] 1.2.840.114 [id number] Univers 00:00:00 00:00:00 Secure Msg Kendal Amaral HEALTH 350.1.13.10 ity of [place] 4.2.7.2.686 [place] as TOÑO?BLEA [id number] Nh dical MIKI 044 [facility] OFFICE [facility] 2021-09-15 2021-09-15 Patient Robb [facility] 1.2.840.114 [id number] Univers 00:00:00 00:00:00 Secure Msg Kendal Amaral HEALTH 350.1.13.10 ity of [place] 4.2.7.2.686 [place] as TOÑO?BLEA [id number] Nh whit [place] [address] [place] MEDICAL OFFICE [facility] 2021-09-14 2021-09-14 Patient Juan [facility] 1.2.840.114 [id number] Univers 00:00:00 00:00:00 Secure Msg Vijay HEALTH 350.1.13.10 ity [facility] 4.2.7.2.686 [place] as TOÑO?BLEA [id number] [address] MEDICAL OFFICE [facility] 2021-09-12 2021-09-12 Outpatient Farzana MIXON [facility] [id number] Univers 10:30:00 10:30:00 CELINA lechuga [facility] 2021-09-12 2021-09-12 Outpatient Farzana MIXON [facility] [id number] Univers 10:30:00 10:30:00 CELINA lechuga [facility] 2021-09-12 2021-09-12 Patient Meet [facility] 1.2.840.114 [id number] Univers 00:00:00 00:00:00 Secure Msg Daniel MULTISPEC 350.1.13.10 ity of [place] 4.2.7.2.686 [place] [facility] [phone] [facility] [place] [address] [facility] 2021-09-12 2021-09-12 Orders Doctor ORTEGA 1.2.840.114 [id number] Univers 00:00:00 00:00:00 Only Unassigned, YAZMIN 350.1.13.10 ity of [place] [facility] 4.2.7.2.686 [place] as [phone] [facility] [address] 2021-09-12 2021-09-12 Patient Juan [facility] 1.2.840.114 [id number] Univers 00:00:00 00:00:00 Secure Msg Vijay HEALTH 350.1.13.10 ity of [place] 4.2.7.2.686 [place] as TOÑO?BLEA [phone] [place] [address] [place] MEDICAL OFFICE BUILDING 2021-09-05 2021-09-05 Patient Juan [facility] 1.2.840.114 [id number] Univers 00:00:00 00:00:00 Secure Msg Vijay HEALTH 350.1.13.10 ity of [place] 4.2.7.2.686 [place] as TOÑO?BLEA [phone] Nh hwit [place] [address] [place] [address] MEDICAL OFFICE BUILDING 2021-09-04 2021-09-04 Patient Juan [facility] 1.2.840.114 [id number] Univers 00:00:00 00:00:00 Secure Msg Vijay HEALTH 350.1.13.10 ity of [place] 4.2.7.2.686 [place] as TOÑO?BLEA [id number] Nh whit [place] [address] [place] [address] OFFICE [facility] 2021-08-25 2021-08-25 Telephone Aditi [facility] 1.2.840.114 [id number] Univers 00:00:00 00:00:00 Dania L HEALTH 350.1.13.10 it y of [place] 4.2.7.2.686 [place] as TOÑO?BLEA [phone] Nh whit [place] [address] [facility] OFFICE [facility] 2021-08-25 2021-08-25 Patient Juan [facility] 1.2.840.114 [id number] Univers 00:00:00 00:00:00 Secure Msg Vijay HEALTH 350.1.13.10 ity of [place] 4.2.7.2.686 [place] as TOÑO?BLEA [phone] Nh whit [place] [address] [place] [address] MEDICAL OFFICE BUILDING 2021-08-24 2021-08-24 Telephone Juan [facility] 1.2.952.339 [id number] Univers 00:00:00 00:00:00 Vijay HEALTH 350.1.13.10 it y of [place] 4.2.7.2.686 [place] as TOÑO?BLEA [id number] Nh whit [place] [address] [place] MEDICAL OFFICE BUILDING 2021-08-24 2021-08-24 Patient Juan [facility] 1.2.840.114 [id number] Univers 00:00:00 00:00:00 Secure Msg Vijay HEALTH 350.1.13.10 ity of [place] 4.2.7.2.686 [place] as TOÑO?BLEA [phone] Nh whit [place] [address] [place] [address] MEDICAL OFFICE BUILDING 2021-08-23 2021-08-23 [facility] 1.2.840.114 [id number] Univers 00:00:00 00:00:00 Secure Msg Vijay HEALTH 350.1.13.10 ity of [place] 4.2.7.2.686 [place] as TOÑO?BLEA [phone] Nh whit [place] [address] [place] [address] MEDICAL OFFICE [facility] 2021-08-23 2021-08-23 Telephone [facility] 1.2.667.175 [id number] Univers 00:00:00 00:00:00 Vijay HEALTH 350.1.13.10 it y of [place] 4.2.7.2.686 [place] as TOÑO?BLEA [phone] Nh whit [address] OFFICE [facility] 2021-08-22 2021-08-22 Telephone [facility] 1.2.375.180 [id number] Univers 00:00:00 00:00:00 Vijay HEALTH 350.1.13.10 it y of [place] 4.2.7.2.686 [place] as TOÑO?BLEA [id number] Nh whit [place] [address] [place] [address] OFFICE [facility] 2021-08-22 2021-08-22 Patient [facility] 1.2.840.114 [id number] Univers 00:00:00 00:00:00 Secure Msg Hallie HEALTH 350.1.13.10 ity of [place] 4.2.7.2.686 [place] as TOÑO?BLEA [phone] Nh whit [place] [address] [place] [address] MEDICAL OFFICE [facility] 2021-08-18 2021-08-18 Telephone [facility] 1.2.430.091 [id number] Univers 00:00:00 00:00:00 Vijay HEALTH 350.1.13.10 it y of [place] 4.2.7.2.686 [place] as TOÑO?BLEA [id number] Nh whit [address] OFFICE [facility] 2021-08-17 2021-08-17 Outpatient Farzana MIXON [facility] [id number] Univers 09:00:00 09:00:00 CELINA lechuga [facility] 2021-08-17 2021-08-17 Outpatient Farzana MIXON [facility] [id number] Univers 09:00:00 09:00:00 CELINA lechuga [facility] 2021-08-16 2021-08-16 Patient Juan [facility] 1.2.840.114 [id number] Univers 00:00:00 00:00:00 [facility] DualCom 350.1.13.10 ity of [place] 4.2.7.2.686 [place] as TOÑO?BLEA [phone] Nh alessandraaliyah MIKI [address] [place] [address] OFFICE [facility] 2021-08-15 2021-08-15 Office [facility] 1.2.840.114 [id number] Univers 15:30:00 16:16:42 Visit [facility] 350.1.13.10 it y of [place] 4.2.7.2.686 [place] as TOÑO?BLEA [phone] Nh alessandraaliyah IVÁNMOE [address] [place] [address] OFFICE [facility] 2021-08-15 2021-08-15 Outpatient [facility] [id number] Univers 15:30:00 16:16:42 [facility] 2021-08-15 2021-08-15 Outpatient Farzana [facility] [id number] Univers 15:30:00 15:30:00 [facility] 2021-08-15 2021-08-15 Outpatient Farzana KIM [facility] [id number] Univers 15:30:00 15:30:00 [facility] 2021-08-15 2021-08-15 Outpatient Farzana KIM [facility] [id number] Univers 15:30:00 15:30:00 [facility] 2021-08-15 2021-08-15 Emergency X DANITA [facility] ERT [id number] Univers 09:27:00 12:26:00 MAURA [facility] 2021-08-15 2021-08-15 Emergency Danita [facility] 1.2.559.838 [id number] Univers 09:27:00 12:26:00 Maura LAWSON 350.1.13.10 ity of [place] 4.2.7.2.686 [place] [facility] [id number] [address] 2021-08-15 2021-08-15 Emergency X DANITA, [facility] ERT [id number] Univers 09:27:00 12:26:00 MAURA lechuga [facility] 2021-08-14 2021-08-14 Outpatient R JUAN [facility] [id number] Univers 13:25:00 23:59:00 VIJAY lechuga [facility] 2021-08-14 2021-08-14 Outpatient R JUAN [facility] [id number] Univers 13:25:00 23:59:00 VIJAY lechuga [facility] 2021-08-14 2021-08-14 Outpatient R VÍCTORKassandra [facility] [id number] Univers 13:25:00 13:25:00 VIJYA lechuga [facility] 2021-08-14 2021-08-14 Outpatient R JUAN [facility] [id number] Univers 12:19:07 13:24:00 IVJAY lechuga [facility] 2021-08-14 2021-08-14 Outpatient R JUAN [facility] [id number] Univers 12:19:07 13:24:00 VIJAY lechuga [facility] 2021-08-14 2021-08-14 [employer], Ang - Db [facility] 1.2.840.1 14 [id number] Univers 12:30:00 13:01:24 Visit Vijay Martinez 350.1.13.10 ity of [place] 4.2.7.2.686 [place] as TOÑO?BLEA [id number] [address] OFFICE [facility] 2021-08-14 2021-08-14 [employer] Lab, Ang - Db [facility] 1.2.840.1 14 [id number] Univers 12:30:00 12:45:00 Visit Vijay Martinez HEALTH 350.1.13.10 ity of [place] 4.2.7.2.686 [place] as TOÑO?BLEA [id number] [address] OFFICE [facility] 2021-08-14 2021-08-14 Office [facility] 1.2.840.114 [id number] Univers 11:30:00 12:31:12 Visit Vijay HEALTH 350.1.13.10 it y of [place] 4.2.7.2.686 [place] as TOÑO?BLEA [id number] Me whit [place] [address] [facility] OFFICE [facility] 2021-08-14 2021-08-14 Outpatient [facility] [id number] Univers 11:30:00 12:31:12 VIJAY itchino [facility] 2021-08-14 2021-08-14 Patient [facility] 1.2.840.114 [id number] Univers 00:00:00 00:00:00 Secure Msg Vijay CSL DualCom 350.1.13.10 ity of [place] 4.2.7.2.686 [place] as TOÑO?BLEA [id number] Nh whit [address] OFFICE [facility] 2021-08-09 2021-08-09 Outpatient R JUDY [facility] [id number] Univers 14:45:00 14:45:00 ADÁN ity [facility] 2021-08-09 2021-08-09 Telephone [facility] 1.2.729.520 [id number] Univers 00:00:00 00:00:00 [facility] 350.1.13.10 it y of [place] 4.2.7.2.686 [place] as TOÑO?BLEA [id number] Nh whit [address] OFFICE [facility] 2021-08-08 2021-08-08 Outpatient R [facility] [id number] Univers 11:30:00 23:59:00 VIJAY ankush [facility] 2021-08-08 2021-08-08 Hospital [facility] 1.2.840.114 [id number] Univers 11:30:00 23:59:00 Encounter Vijay HEALTH 350.1.13.10 ity of [facility] 4.2.7.2.686 [place] as TOÑO?BLEA [id number] Nh whit [place] [address] [facility] OFFICE [facility] 2021-08-08 2021-08-08 Outpatient R JUAN [facility] [id number] Univers 11:15:00 11:15:00 VIJAY lechuga [facility] 2021-08-08 2021-08-08 Outpatient R JUAN [facility] [id number] Univers 11:00:00 11:00:00 VIJAY lechuga [facility] 2021-08-08 2021-08-08 Patient Doctor ORTEGA 1.2.840.114 [id number] Univers 00:00:00 00:00:00 Secure Msg Unassigned, YAZMIN 350.1.13.10 ity of [facility] 4.2.7.2.686 [place] as [id number] [address] 2021-08-07 2021-08-07 Office Juan [facility] 1.2.840.114 [id number] Univers 09:30:00 10:23:21 Visit Vijay HEALTH 350.1.13.10 it y of [facility] 4.2.7.2.686 [place] as TOÑO?BLEA [id number] Nh whit [address] MEDICAL OFFICE [facility] 2021-08-07 2021-08-07 Outpatient R JUAN [facility] [id number] Univers 09:30:00 10:23:21 VIJAY lechuga [facility] 2021-08-07 2021-08-07 Outpatient R JUAN [facility] [id number] Univers 09:30:00 09:30:00 VIJAY lechuga [facility] 2021-08-07 2021-08-07 Patient íVctorkassandra [facility] 1.2.840.114 [id number] Univers 00:00:00 00:00:00 Secure Msg Vijay HEALTH 350.1.13.10 ity of [place] 4.2.7.2.686 [place] as TOÑO?BLEA [id number] Nh dical [address] MEDICAL OFFICE BUILDING 2021-08-07 2021-08-07 Patient Juan [facility] 1.2.840.114 [id number] Univers 00:00:00 00:00:00 Secure Msg Vijay HEALTH 350.1.13.10 ity of [place] 4.2.7.2.686 [place] as TOÑO?BLEA [id number] Nh whit [place] [address] [place] [address] MEDICAL OFFICE BUILDING 2021-08-07 2021-08-07 Patient Apurva [facility] 1.2.840.114 [id number] Univers 00:00:00 00:00:00 Secure Msg Celina A FLACO 350.1.13.10 ity of [facility] 4.2.7.2.686 [place] [id number] [address] 2021-08-04 2021-08-04 Outpatient R SHADIA [facility] [id number] Univers 10:00:00 10:00:00 PETRA ity of [facility] 2021-08-04 2021-08-04 Patient Juan [facility] 1.2.840.114 [id number] Univers 00:00:00 00:00:00 Secure Msg Vijay HEALTH 350.1.13.10 ity of [place] 4.2.7.2.686 [place] as TOÑO?BLEA [id number] Nh whit [address] MEDICAL OFFICE [facility] 2021-08-03 2021-08-03 Office SOURAV Diaz 1.2.840.114 [id number] Univers 11:00:00 12:48:43 Visit Jayy Y 350.1.13.10 it y [facility] 4.2.7.2.686 [place] as BANK [id number] [address] 2021-08-03 2021-08-03 Outpatient R EMILY [facility] [id number] Univers 11:00:00 12:48:43 JAYY lechuga [facility] 2021-08-03 2021-08-03 Outpatient R [facility] [id number] Univers 11:00:00 11:00:00 JAYY lechuga [facility] 2021-08-03 2021-08-03 Patient Apurva [facility] 1.2.840.114 [id number] Univers 00:00:00 00:00:00 Secure Msg Celina A FLACO 350.1.13.10 ity of [facility] 4.2.7.2.686 [place] [id number] [address] 2021-08-02 2021-08-02 Telephone [facility] 1.2.345.273 [id number] Univers 00:00:00 00:00:00 Vijay [facility] 350.1.13.10 it y of [place] 4.2.7.2.686 [place] TOÑO?BLEA [id number] Nh whit [place] [address] [place] [address] 2021-07-21 2021-07-21 Outpatient R DARRION WYATT [facility] [id number] Univers 08:00:00 08:52:53 DARRION WYATT chino [facility] 2021-07-17 2021-07-17 Outpatient Farzana [facility] [id number] Univers 11:30:00 11:30:00 VJIAY [facility] 2021-06-19 2021-06-19 Telephone [facility] 1.2.600.715 [id number] Univers 00:00:00 00:00:00 [facility] 350.1.13.10 it y of [place] 4.2.7.2.686 [place] as TOÑO?BLEA [phone] Nh whit [place] [address] [place] [address] 2021-06-09 2021-06-09 Telephone [facility] [id number] Univers 00:00:00 00:00:00 Rjei [place] 350.1.13.10 ity [facility] 4[place]2.7.2.[place] [phone] Nh whit TORRES 059 [facility] 2021-06-06 2021-06-06 Outpatient Farzana C[facility]ES [facility] [id number] Univers 11:15:00 11:15:00 TETO lechuga [facility] 2021-06-06 2021-06-06 Outpatient Farzana C[facility]ES [facility] [id number] Univers 11:15:00 11:15:00 TETO lechuga [facility] 2021-06-02 2021-06-02 Outpatient Farzana EVANS [facility] [id number] Univers 15:45:00 15:45:00 WONDIFUL ity o f [facility] 2021-05-31 2021-05-31 Outpatient R JUAN [facility] [id number] Univers 10:00:00 10:46:31 VIJAY lechuga of [facility] 2021-05-31 2021-05-31 Office Juan [facility] [id number] Univers 10:00:00 10:46:31 Visit Vijay HEALTH 350.1.13.10 it y [facility] 4.2.7.2.686 [place] as TOÑO?BLEA [id number] Nh dicaliyah IVNÁEY 044 [facility] 2021-05-31 2021-05-31 Outpatient R JUAN [facility] [id number] Univers 10:00:00 10:46:31 VIJAY lechuga [facility] 2021-05-31 2021-05-31 Orders Doctor JORDAN [id number] Univers 00:00:00 00:00:00 Only Unassigned, YAZMIN 350.1.13.10 ity of [place] [facility] 4.2.7.2.686 [place] as [phone] [address] 2021-05-26 2021-05-26 Telephone [facility] [id number] Univers 00:00:00 00:00:00 Skylar A HEALTH 350.1.13.10 i ty of [place] 4.2.7.2.686 [place] as TOÑO?BLEA [id number] Nh whit MINOREY 044 [facility] 2021-05-26 2021-05-26 Patient Prasanna Vargas [facility] [id number] Univers 00:00:00 00:00:00 Secure Msg Cam [place] 350.1.13.10 ity of [place]2.7.2.[place] [phone] Nh dical NAL 134 [facility] 2021-05-25 2021-05-25 Telemedici [facility] [id number] [id number] Univers 14:00:00 14:30:00 ne Visit Skylar A HEALTH 350.1.13.10 ity of [place] 4.2.7.2.686 [place] as TOÑO?BLEA [phone] Me dical MIKI 044 [place] [facility] 2021-05-25 2021-05-25 Outpatient R YANELI [facility] [id number] Univers 14:00:00 14:00:00 SKYLAR lechuga [facility] 2021-05-25 2021-05-25 Out[facility] [id number] Univers 14:00:00 14:00:00 SKYLAR lechuga [facility] 2021-05-24 2021-05-24 Telephone Ponce [facility] 1.2.416.624 [id number] Univers 00:00:00 00:00:00 Sendzohra LAWSON 350.1.13.10 ity of [place] 4.2.7.2.686 [place] [phone] Nh whit TORRES [address] [facility] 2021-05-23 2021-05-23 Outpatient R [facility] [id number] Univers 10:00:00 10:00:00 ity [facility] 2021-05-23 2021-05-23 Outpatient R [facility] [id number] Univers 10:00:00 10:00:00 ity [facility] 2021-05-16 2021-05-16 Outpatient [facility] [id number] Univers 09:00:00 09:00:00 [facility] 2021-05-12 2021-05-12 Orders Doctor JORDAN 1.2.840.114 [id number] Univers 00:00:00 00:00:00 Only Unassigned, YAZMIN 350.1.13.10 ity of [facility] 4.2.7.2.686 Martin as [phone] [address] 2021-05-10 2021-05-10 Outpatient R CRISTINA [facility] [id number] Univers 13:00:00 13:00:00 WONDIFUL ity o f [facility] 2021-05-10 2021-05-10 Outpatient R CRISTINA [facility] [id number] Univers 13:00:00 13:00:00 WONDIFUL ity o f [facility] 2021-05-09 2021-05-09 Telephone Prasanna Vargas [facility] 1.2.840.114 [id number] Univers 00:00:00 00:00:00 Jm LAWSON 350.1.13.10 i ty of [facility] 4.2.7.2.[place] [phone] Nh dical NAL 134 [facility] 2021-05-09 2021-05-09 Patient [facility] 1.2.840.114 [id number] Univers 00:00:00 00:00:00 Secure Msg Rad LAWSON 350.1.13.10 ity of [place] 4.2.7.2.[place] [phone] Nh dicme NAL 059 [facility] 2021-05-08 2021-05-08 Outpatient Farzana ARANA [facility] [id number] Univers 16:00:00 16:00:00 [facility] 2021-05-08 2021-05-08 Outpatient Farzana ARANA [facility] [id number] Univers 16:00:00 16:00:00 JE [facility] 2021-05-08 2021-05-08 Patient [facility] 1.2.840.114 [id number] Univers 00:00:00 00:00:00 Secure Msg Rad LAWSON 350.1.13.10 ity of [place].2.7.2.[place] [phone] Nh dicme NAL [address] [place] [address] 2021-05-08 2021-05-08 [facility] 1.2.840.114 [id number] Univers 00:00:00 00:00:00 Secure Msg Rad LAWSON 350.1.13.10 ity of [place] 4.2.7.2.[place] [phone] Nh dical NAL 9 [facility] 2021-05-03 2021-05-03 Outpatient R ARJUN [facility] [id number] Univers 11:15:36 23:59:00 REJI davis [facility] 2021-05-03 2021-05-03 [facility] 1.2.840.114 [id number] Univers 11:15:36 23:59:00 Encounter Reji LAWSON 350.1.13.10 ity of [place] 4.2.7.2.[place] [phone] [facility] NAL 846 [facility] 2021-05-03 2021-05-03 Telephone [facility] 1.2.840.114 [id number] Univers 00:00:00 00:00:00 Wondiful A HEALTH 350.1.13.10 ity of [place] 4.2.7.2.686 [place] as TOÑO?BLEA [id number] [address] OFFICE [facility] 2021-05-02 2021-05-02 Telephone [facility] 1.2.270.048 [id number] Univers 00:00:00 00:00:00 Sendzohra [facility] [place] 350.1.13.10 ity of [facility] 4.2.7.2.[place] [id number] [facility] 059 [facility] 2021-05-02 2021-05-02 Patient [facility] 1.2.840.114 [id number] Univers 00:00:00 00:00:00 Secure Msg Wondiful A HEALTH 350.1.13.10 ity [facility] 4.2.7.2.686 [place] as TOÑO?BLEA [id number] [address] OFFICE [facility] 2021-05-02 2021-05-02 Telephone [facility] 1.2.840.114 [id number] Univers 00:00:00 00:00:00 Wondiful A HEALTH 350.1.13.10 ity of [place] 4.2.7.2.686 [place] as TOÑO?BLEA [id number] [address] OFFICE [facility] 2021-05-02 2021-05-02 Patient [facility] 1.2.840.114 [id number] Univers 00:00:00 00:00:00 Secure Msg Sendil [facility] [place] 350.1.13.10 ity of [place] 4.2.7.2.686 [place] [facility] [phone] Nh dical NAL [address] [facility] 2021-04-27 2021-04-27 Emergency X [facility] [id number] Univers 14:24:00 15:49:00 MAGGIE ity [facility] 2021-04-27 2021-04-27 Emergency [facility] 1.2.840.114 [id number] Univers 14:24:00 15:49:00 Maggie LAWSON 350.1.13.10 ity [facility] 4.2.7.2.686 [place] [phone] [facility] [address] [place] 2021-04-27 2021-04-27 Laboratory Only, Ang Db Test [facility] 1.2.8 40.114 [id number] Univers 11:15:00 11:30:00 Only Unknown, Attending HEALTH 350.1.13.10 ity of [place] 4.2.7.2.686 [place] TOÑO?BLEA [phone] Nh dical KNEY [address] [place] MEDICAL OFFICE BUILDING 2021-04-27 2021-04-27 Outpatient R SIL [facility] [id number] Univers 11:15:00 11:15:00 THONY [facility] 2021-04-27 2021-04-27 Orders Doctor JORDAN 1.2.840.114 [id number] Univers 00:00:00 00:00:00 Only Unassigned, YAZMIN 350.1.13.10 ity of [place] [facility] 4.2.7.2.686 [place] as [phone] [facility] [address] 2021-04-20 2021-04-20 Outpatient R JUSTINE [facility] [id number] Univers 15:00:00 15:00:00 SCOTT ity [facility] 2021-04-13 2021-04-13 Patient Cristina [facility] 1.2.840.114 [id number] Univers 00:00:00 00:00:00 Secure Msg Wondiful A HEALTH 350.1.13.10 ity of [place] 4.2.7.2.686 [place] as TOÑO?BLEA [phone] [facility] 044 [facility] OFFICE [facility] 2021-04-12 2021-04-12 Telephone [place] [facility] 1.2.840.114 [id number] Univers 00:00:00 00:00:00 Wondiful A HEALTH 350.1.13.10 ity of [facility] 4.2.7.2.686 [place] as TOÑO?BLEA [id number] [facility] 044 [facility] 2021-03-27 2021-03-27 Telephone Prasanna Vargas [facility] 1.2.840.114 [id number] Univers 00:00:00 00:00:00 Cam [place] 350.1.13.10 i ty of [place] 4.2.7.2.686 [place] [phone] [facility] 134 [facility] 2021-03-23 2021-03-23 Outpatient R [facility] [id number] Univers 13:30:00 13:30:00 CHILVANA ity o f [facility] 2021-03-23 2021-03-23 Outpatient R KAVYA [facility] [id number] Univers 13:30:00 13:30:00 CHILVANA ity o f [facility] 2021-03-22 2021-03-22 Outpatient R ADITYA MEEKS [facility] [id number] Univers 09:20:00 09:20:00 ATANASOV STRAHIL ity [facility] 2021-03-22 2021-03-22 Outpatient R ADITYA MEEKS [facility] [id number] Univers 09:20:00 09:20:00 JEANNA, STRAHIL ity [facility] 2021-03-20 2021-03-20 Outpatient R CRISTINA [facility] [id number] Univers 00:00:00 00:00:00 WONDIFUL ity o f [facility] 2021-03-18 2021-03-18 Case [facility] 1.2.840.114 [id number] Univers 00:00:00 00:00:00 Management Wondiful A HEALTH 350.1.13.10 ity of [facility] 4.2.7.2.686 [place] as TOÑO?BLEA [phone] Nh whit [place] [address] [place] MEDICAL OFFICE [facility] 2021-03-16 2021-03-16 [employer] Professor Lab, Ang - Db [facility] 1.2.840.1 14 [id number] Univers 11:16:07 11:31:07 Visit Claudette Evans A HEALTH 350.1.13.1 0 ity of [place] 4.2.7.2.686 [place] TOÑO?BLEA [phone] Nh whit [place] 353 [facility] OFFICE [facility] 2021-03-16 2021-03-16 Outpatient R CRISTINA [facility] [id number] Univers 11:30:00 11:30:00 WONDIFUL ity o [facility] 2021-03-16 2021-03-16 Outpatient R [facility] [id number] Univers 11:00:00 11:14:45 WONDIFUL ity o [facility] 2021-03-16 2021-03-16 Office [facility] 1.2.840.114 [id number] Univers 10:00:58 11:14:45 Visit Wondiful A HEALTH 350.1.13.10 ity of [place] 4.2.7.2.686 [place] as TOÑO?BLEA [phone] [address] OFFICE [facility] 2021-03-16 2021-03-16 Patient [facility] 1.2.840.114 [id number] Univers 00:00:00 00:00:00 Secure Msg Wondiful A HEALTH 350.1.13.10 ity of [place] 4.2.7.2.686 [place] as TOÑO?BLEA [phone] Nh whit [address] OFFICE [facility] 2021-03-02 2021-03-02 Outpatient R CRISTINA [facility] [id number] Univers 16:15:00 16:15:00 WONDIFUL ity o [facility] 2021-02-28 2021-02-28 Outpatient R HARDEEP [facility] [id number] Univers 18:30:00 18:30:00 ILEANAYOGI lechuga of [facility] 2021-02-28 2021-02-28 Telephone [place], [facility] 1.2.840.114 [id number] Univers 00:00:00 00:00:00 Wondiful A Health 350.1.13.10 ity of [place] 4.2.7.2.686 [place] as Toño?Blea [phone] Nh whit [place] [address] [place] Medical Office [facility] 2021-02-27 2021-02-27 Outpatient R [facility] [id number] Univers 09:00:00 09:00:00 AMELIA ity of [facility] 2021-02-23 2021-02-23 Telephone [facility] 1.2.840.114 [id number] Univers 00:00:00 00:00:00 Wondiful A Health 350.1.13.10 ity of [place] 4.2.7.2.686 [place] Toño?Blea [phone] Nh whit moe 044 [facility] Office [facility] 2021-02-10 2021-02-10 Emergency Kaycee Méndez [facility] 1.2.840.114 [id number] Univers 18:12:00 23:39:00 Sharlene [place] 350.1.13.10 i ty of [place] 4.2.7.2.[place] [phone] [facility] [address] [place] 2021-02-09 2021-02-09 [facility] 1.2.333.075 [id number] Univers 13:40:00 23:59:00 Encounter Wondiful A Health 350.1.13.10 ity of [place] 4.2.7.2.686 [place] as Toño?Blea [phone] Nh whit [place] [address] [place] Medical Office [facility] 2021-02-09 2021-02-09 [employer] Professor Lab, Ang - Db [facility] 1.2.840.1 14 [id number] Univers 13:49:05 14:04:05 Visit [place]iboClaudette A Health 350.1.13.1 0 ity of [place] 4.2.7.2.686 [place] as Toño?Blea [phone] Nh dicaliyah [place] [address] [place] Medical Office Building 2021-02-09 2021-02-09 Office [place], [facility] 1.2.840.114 [id number] Univers 12:23:13 13:47:12 Visit Wondiful A Health 350.1.13.10 ity of [place] 4.2.7.2.686 [place] as Toño?Blea [phone] [address] Medical Office [facility] 2021-02-09 2021-02-09 Outpatient R [facility] [id number] Univers 13:00:00 13:00:00 WONDIFUL ity o f [facility] 2021-02-08 2021-02-08 Outpatient R NEHEMIAH MEEKSOHEz [facility] [id number] Univers 10:20:00 10:20:00 [facility]NA [facility] 2021-02-02 2021-02-02 Outpatient [facility] [id number] Univers 10:30:00 10:30:00 SKYLAR [facility] 2021-02-02 2021-02-02 Telephone [facility] 1.2.840.114 [id number] Univers 00:00:00 00:00:00 Wondiful A Health 350.1.13.10 ity of [place] 4.2.7.2.686 [place] as Toño?Blea [phone] [address] Office [facility] 2021-02-01 2021-02-01 Outpatient R [facility] [id number] Univers 08:30:00 08:30:00 SKYLAR [facility] 2021-01-31 2021-01-31 [facility] 1.2.840.114 [id number] Univers 18:44:04 19:41:26 Care [facility] 350.1.13.10 i ty of [place] 4.2.7.2.686 [place] as Toño?Blea [phone] [facility] [address] [place] Medical Office [facility] 2021-01-31 2021-01-31 Outpatient R OLIVERNATIONWIDE [facility] [id number] Univers 19:00:00 19:00:00 FLACO ity o f [facility] 2021-01-31 2021-01-31 Telephone [facility] 1.2.840.114 [id number] Univers 00:00:00 00:00:00 Wondiful A Health 350.1.13.10 ity of [place] 4.2.7.2.686 [place] as Toño?Blea [phone] [facility] miki 044 [facility] Office [facility] 2021-01-30 2021-01-30 Telephone [facility] 1.2.322.763 [id number] Univers 00:00:00 00:00:00 Sendil MiracleHPilar LauraMayfield 350.1.13.10 ity of [place] 4.2.7.2.686 [place] [phone] Nh whit [place]res 059 [facility] 2021-01-26 2021-01-26 Outpatient R [facility] [id number] Univers 14:00:00 14:00:00 [facility] 2021-01-25 2021-01-25 Outpatient R [facility] [id number] Univers 15:00:00 15:00:00 ity [facility] 2021-01-20 2021-01-20 Telemedici [facility]eliLOVELACE [facility] 1..840.114 [id number] Univers 16:51:22 17:12:41 ne Visit Skylar [facility] 350.1.13.10 ity of [place] 4.2.7.2.686 [place] as Toño?Blea [phone] [address] Office [facility] 2021-01-20 2021-01-20 Outpatient R [facility] [id number] Univers 16:30:00 16:30:00 SKYLAR ity [facility] 2021-01-19 2021-01-19 Outpatient R [facility]IN[facility] [id number] Univers 10:15:00 10:15:00 KAYLEY ity [facility] 2021-01-14 2021-01-14 JORDAN Guzman 1.2.840.114 [id number] Univers 00:00:00 00:00:00 Management Kassandra ARCE 350.1.13.10 ity of [facility] 4.2.7.2.686 Martin as [phone] [facility] [address] 2021-01-12 2021-01-12 Emergency [facility] 1.2.598.205 [id number] Univers 16:10:00 19:45:00 Karin Lawson 350.1.13.10 i ty of [place] 4.2.7.2.686 [place] [id number] [facility] [address] 2021-01-12 2021-01-12 Outpatient Farzana MEDRANO [facility] [id number] Univers 15:20:00 15:20:00 [facility]ANA [facility] 2021-01-12 2021-01-12 Urgent Thony Johnson [facility] 1.2.840.114 [id number] Univers 14:46:57 15:06:57 [facility] 350.1.13.10 ity of [place] 4.2.7.2.686 [place] Toño?Blea [phone] [address] Office Building 2020-12-26 2020-12-26 Outpatient R [facility] [id number] Univers 15:30:00 16:13:32 SENDIL ity [facility] 2020-12-26 2020-12-26 Office [facility] 1.2.840.114 [id number] Univers 15:30:00 16:13:32 Visit Sendzohra LAWSON 350.1.13.10 ity [facility] 4.2.7.2.686 [place] [phone] [address] 2020-12-26 2020-12-26 Office [facility] 1.2.840.114 [id number] Univers 15:00:32 16:13:32 Visit Rad Lawson 350.1.13.10 ity of [place] 4.2.7.2.686 [place] [id number] [address] 2020-12-26 2020-12-26 Outpatient R [facility] [id number] Univers 15:30:00 15:30:00 SENDIL ity [facility] 2020-11-22 2020-11-22 Outpatient R APURVA [facility] [id number] Univers 11:00:00 11:00:00 CELINA lechuga [facility] 2020-11-10 2020-11-10 Urgent Alissa Collins [facility] 1.2.840.114 [id number] 18:42:46 19:53:43 [facility] 350.1.13.10 [place] 4.2.7.2.686 Profadore [phone] nal 0[address] Office [address] One 2020-11-10 2020-11-10 Outpatient R [facility] [id number] Univers 19:00:00 19:00:00 itchino [facility] 2020-10-31 2020-10-31 Emergency Dev, K [facility] 1.2.840.114 [id number] 18:52:00 22:15:00 Sharlene Lawson 350.1.13.10 [place] 4.2.7.2.686 [place] [id number] 084 2020-10-31 2020-10-31 Outpatient R NATASHA [facility] [id number] Univers 19:00:00 19:00:00 BEBA lechuga o f [facility] 2020-10-31 2020-10-31 Orders Doctor JORDAN 1.2.840.114 [id number] 00:00:00 00:00:00 Only Unassigned, YAZMIN 350.1.13.10 [place] [facility] 4.2.7.2.686 [id number] 2020-10-20 2020-10-20 Emergency Kaycee Méndez [facility] 1.2.840.114 [id number] 14:02:00 17:13:00 Sharlene Lawson 350.1.13.10 [place] 4.2.7.2.686 [place] [id number] 084 2020-10-14 2020-10-14 [facility] Prasanna Vargas [facility] 1.2.840.114 [id number] 10:00:00 23:59:00 Remington Lawson 350.1.13.10 [place] 4.2.7.2.686 [place] [id number] 806 2020-10-14 2020-10-14 Outpatient Farzana MIXON [facility] [id number] Univers 13:30:00 13:30:00 CELINA [facility] 2020-10-09 2020-10-09 Emergency [facility]EL[facility] 1.2.793.528 [id number] 12:00:00 15:57:00 Anna Lawson 350.1.13.10 [place] 4.2.7.2.686 [place] [id number] 084 2020-10-06 2020-10-06 Office Alicia Prasanna [facility] 1.2.196.335 [id number] 08:53:00 09:46:44 Visit Jm Lawson 350.1.13.10 [place] 4.2.7.2.686 [facility] [phone] nal [address] Building 2020-10-06 2020-10-06 Outpatient PRASANNA LOOMIS [facility] [id number] Univers 09:30:00 09:30:00 [facility] 2020-10-04 2020-10-04 Outpatient Farzana MIXON [facility] [id number] Univers 14:00:00 14:00:00 CELINA [facility] 2020-09-30 2020-09-30 Outpatient Farzana MIXON [facility] [id number] Univers 10:30:00 10:30:00 CELINA [facility] 2020-09-29 2020-09-29 Outpatient Farazna SHAY [facility] [id number] Univers 13:45:00 13:45:00 PREET [facility] 2020-09-06 2020-09-06 Outpatient Farzana VARGAS PRASANNA [facility] [id number] Univers 15:30:00 15:30:00 [facility] 2020-09-02 2020-09-02 Outpatient DARRION QUIROZ [facility] [id number] Univers 15:40:00 15:40:00 DARRION WYATT [facility] 2020-08-31 2020-08-31 Outpatient Farzana SERRA [facility] [id number] Univers 10:30:00 10:30:00 SENDIL ity [facility] 2020-08-18 2020-08-18 Outpatient R PRASANNA VARGAS [facility] [id number] Univers 09:30:00 09:30:00 ity [facility] 2020-08-11 2020-08-11 Outpatient R PRASANNA VARGAS [facility] [id number] Univers 13:30:00 13:30:00 ity [facility] 2020-08-04 2020-08-04 Outpatient R UJSTINE [facility] [id number] Univers 14:00:00 14:00:00 SCOTT ity [facility] 2020-07-28 2020-07-28 Outpatient R PONCE [facility] [id number] Univers 10:30:00 10:30:00 [facility] 2020-06-30 2020-06-30 Outpatient R CRISTINA [facility] [id number] Univers 16:15:00 16:15:00 WONDIFUL ity o f [facility] 2020-06-17 2020-06-17 Outpatient R DARRION WYATT [facility] [id number] Univers 15:00:00 15:00:00 DARRION WYATT [facility] 2020-06-16 2020-06-16 Outpatient R PONCE [facility] [id number] Univers 15:30:00 15:30:00 [facility] 2020-06-09 2020-06-09 Outpatient R NI DISLA [facility] [id number] Univers 12:30:00 12:30:00 ity [facility] 2020-06-08 2020-06-08 Outpatient R NI DISLA [facility] [id number] Univers 08:00:00 08:00:00 ity [facility] 2020-06-02 2020-06-02 Outpatient R PONCE [facility] [id number] Univers 09:00:00 09:00:00 [facility] 2020-05-28 2020-05-28 Outpatient R NATASHA [facility] [id number] Univers 10:00:00 10:00:00 BEBA ity o f [facility] 2020-05-24 2020-05-24 Outpatient R NI DISLA [facility] [id number] Univers 10:00:00 10:00:00 ity [facility] 2020-05-19 2020-05-19 Outpatient R OSITO HITCHCOCK [facility] [id number] Univers 16:30:00 16:30:00 [facility] 2020-05-17 2020-05-17 Outpatient R DARRION WYATT [facility] [id number] Univers 13:00:00 13:00:00 YOSELINDARRION Xavier [facility] 2020-05-16 2020-05-16 Outpatient R CRISTINA [facility] [id number] Univers 16:00:00 16:00:00 WONDIFUL ity o f [facility] 2020-05-08 2020-05-08 Emergency X VIRGIE, [facility] ERT [id number] Univers 10:24:00 13:03:00 EDGAR [facility] 2020-05-03 2020-05-03 Outpatient R CRISTINA [facility] [id number] Univers 15:00:00 15:00:00 WONDIFUL ity o f [facility] 2020-04-30 2020-05-01 Outpatient X KAVYA [facility] JOSÉ MANUEL [id number] Univers 11:14:00 15:50:00 RODRIGUEZ [facility] 2020-04-30 2020-04-30 Outpatient R JASPAL [facility] [id number] Univers 10:20:00 10:20:00 ROSALES [facility] 2020-04-30 2020-04-30 Outpatient R JASPAL [facility] [id number] Univers 10:15:00 10:15:00 ROSALES [facility] 2020-04-28 2020-04-28 Outpatient R JACKOSITO [facility] [id number] Univers 14:00:00 14:00:00 ity [facility] 2020-04-25 2020-04-25 Outpatient R CRISTINA [facility] [id number] Univers 16:15:00 16:15:00 WONDIFUL ity o f [facility] 2020-04-18 2020-04-18 Outpatient R OSITO HITCHCOCK [facility] [id number] Univers 10:00:00 10:00[facility]-04-15 2020-04-15 Outpatient R PONCE [facility] [id number] Univers 10:30:00 10:30:00 SENDIL [facility] 2020-04-12 2020-04-13 Outpatient X MARICRUZ [facility] [id number] Univers 13:38:00 16:25:00 [facility] 2020-03-17 2020-03-17 Outpatient R DEYVI [facility] [id number] Univers 16:15:00 16:15:00 [facility] 2020-03-04 2020-03-04 Refill Heaven [facility]cocks[facility] [id number] 00:00:00 00:00:00 MULTISPEC [id number] IALTY [id number] [place] [id number] [facility] 2020-02-25 2020-02-25 Outpatient R JACKOSITO Hui [facility] [id number] Univers 16:00:00 16:00:00 [facility] 2020 2020 Outpatient R DEYVI [facility] [id number] Univers 14:00:00 14:00:00 [facility] 2020-02-08 2020-02-08 Outpatient R PRASANNA VARGAS [facility] [id number] Univers 10:30:00 10:30:00 [facility] 2020-02-04 2020-02-04 Outpatient R JACKOSITO [facility] [id number] Univers 13:30:00 13:30:00 [facility] 2020-01-23 2020-01-23 Outpatient R [facility] [id number] Univers 10:15:00 10:15:00 [facility] 2020-01-21 2020-01-21 Outpatient R JACKOSITO [facility] [id number] Univers 13:00:00 13:00:00 [facility] 2020-01-14 2020-01-14 Outpatient R OSITO [place] [facility] [id number] Univers 16:00:00 16:00:00 [facility] 2020-01-05 2020-01-05 Outpatient R ALICIA PRASANNA [facility] [id number] Univers 13:45:00 13:45:00 [facility] 2019-12-03 2019-12-03 Outpatient R AKINSIPE, [facility] [id number] Univers 10:30:00 10:30:00 CRICKET ity o f [facility] 2019-11-27 2019-11-27 Outpatient R VANAPHAN, [facility] [id number] Univers 11:00:00 11:00:00 [facility] 2019-11-25 2019-11-25 Outpatient R VANAPHAN, [facility] [id number] Univers 08:00:00 08:00:00 [facility] 2019-11-18 2019-11-18 Outpatient R VANAPHAN, [facility] [id number] Univers 10:00:00 10:00:00 [facility] 2019-09-02 2019-09-02 Outpatient R AKINSIPE, [facility] [id number] Univers 11:00:00 11:00:00 CRICKET ity o f [facility] 2019-08-14 2019-08-14 Outpatient R VANAPHAN, [facility] [id number] Univers 10:15:00 10:15:00 [facility] 2019-08-13 2019-08-13 Outpatient R AKINSIPE, [facility] [id number] Univers 11:00:00 11:00:00 CRICKET ity o f [facility] 2019-08-12 2019-08-12 Outpatient R [facility] [id number] Univers 09:00:00 09:00:00 [facility] 2019-07-20 2019-07-20 Outpatient P ALICIAPRASANNA [facility] CHRIS [id number] Univers 16:06:00 16:06:00 [facility] 2019-07-20 2019-07-20 Outpatient R AKINSIPE, [facility] [id number] Univers 08:15:00 08:15:00 CRICKET ity o f [facility] 2019-07-13 2019-07-13 Outpatient R BRANDON [facility] [id number] Univers 08:00:00 08:00:00 CRICKET ity o f [facility] 2019-07-12 2019-07-12 Outpatient P PRASANNA VARGAS [facility] [id number] Univers 13:39:00 13:39:00 [facility] 2019-07-06 2019-07-06 Outpatient R BRANDON [facility] [id number] Univers 13:00:00 13:00:00 CRICKET maradiagay o f [facility] 2019-06-13 2019-06-13 Emergency X MARGARITA [facility] ERT [id number] Univers 10:40:46 12:35:00 SARAHI [facility] 2019-05-13 2019-05-14 Outpatient P PRASANNA VARGAS [facility] [id number] Univers 23:07:00 09:15:00 [facility] Results Test Description Test Time Test Comments Results Result Comments Source POCT TEST 2022-03-15 13:52:00 Test Item Value Reference Range Interpretation Comme nts POCT PREG (test code = 1605) negative On board controls acceptable with C Line (test code = 3574) present Lab Interpretation (test code = 64445-6) [facility] [id number] 14:59:00 Test Item Value Reference Range Interpretation Comments POCT PREG (test code = 1605) negative On board controls acceptable with yes C Line (test code = 3574) POCT PREG LOT # (test code = 3575) [id number] POCT PREG TEST DATE (test 07/11/2023 code = 3576) Lab Interpretation (test code = Normal 67005-9) [facility]. METABOLIC PANEL (68327)2022 17:51:43 Test Item Value Reference Range Interpretation Comments NA (test code = 139 mmol/L 135-145 1032058677) K (test code = 4.1 mmol/L 3.5-5 6300273905) CL (test code = 104 mmol/L 98-108 1076019035) CO2 TOTAL (test code = 22 mmol/L 23-31 L 8518874785) AGAP (test code = 2-16 4753426539) BUN (test code = 7 mg/dL 7-23 4656264421) GLUCOSE (test code = 114 mg/dL 70-110 H 2696730447) CREATININE (test code = 0.69 mg/dL 0.5-1.04 0414084170) TOTAL BILI (test code = 0.4 mg/dL 0.1-1.4 4221896102) CALCIUM (test code = 9.7 mg/dL 8.6-10.6 4104203312) T PROTEIN (test code = 7.2 g/dL 6.3-8.2 2934420095) ALBUMIN (test code = 4.6 g/dL 3.5-5 7952428042) ALK PHOS (test code = 65 U/L 34-122 7976189465) ALTv (test code = 15 U/L 5-35 1742-6) AST(SGOT) (test code = 19 U/L 13-40 0258391116) eGFR (test code = mL/min/1.73m2 1020883113) WESLEY (test code = WESLEY) Association of [...] tests). Lab Interpretation Abnormal (test code = 49808-1) [facility] WITH [id number] 17:40:24 Test Item Value Reference Range Interpretation Comments WBC (test code = See_Comment [Automated 5290-2) message] The sy stem which generated this [...] as normal/abnormal . HGB (test code = 13.4 g/dL 11.6-15 718-7) HCT (test code = 40.2 % 35.7-45.2 4544-3) MCV (test code = 89.1 fL 80.6-95.5 787-2) MCH (test code = 29.7 pg 25.9-32.8 785-6) MCHC (test code = 33.3 g/dL 31.6-35.1 786-4) RDW-SD (test code = 43.1 fL 39-49.9 03874-4) RDW-CV (test code = 13.2 % 12-15.5 788-0) PLT (test code = See_Comment [Automated 777-3) message] The sy stem which generated this result transmitted reference range : 166 - 358 10*3/ ?L. The reference r david was not used to interpret this result as normal/abnormal . MPV (test code = 9.5 fL 9.5-12.9 71829-6) NRBC/100 WBC (test See_Comment [Automat ed code = 8319315491) message] The system which generated this result transmitted reference range : 0.0 - 10.0 /100 WBCs. The refer ence range was not u sed to interpret th is result as normal/abnormal . NRBC x10^3 (test code See_Comment [Auto mated = 7668292013) message] The s ystem which generated this result transmitted reference range : 10*3/?L. The reference range was not used to interpret this result as normal/abnormal . GRAN MAT (NEUT) % 57.8 % (test code = 770-8) IMM GRAN % (test code 0.20 % = 6712235239) LYMPH % (test code = 30.8 % 736-9) MONO % (test code = 5.1 % 5905-5) EOS % (test code = 5.6 % 713-8) BASO % (test code = 0.5 % 706-2) GRAN MAT x10^3(ANC) 3.61 10*3/uL 1.88-7.09 (test code = 5205558461) IMM GRAN x10^3 (test 0-0.06 code = 8363075051) LYMPH x10^3 (test code 1.92 10*3/uL 1.32-3.29 = 731-0) MONO x10^3 (test code 0.32 10*3/uL 0.33-0.92 L = 742-7) EOS x10^3 (test code = 0.35 10*3/uL 0.03-0.39 711-2) BASO x10^3 (test code 0.03 10*3/uL 0.01-0.07 = 704-7) Lab Interpretation Abnormal (test code = 60453-0) [facility] [id number] 17:27:00 Test Item Value Reference Range Interpretation Comments POCT PREG (test code = 1605) negative On board controls acceptable with present C Line (test code = 3574) POCT PREG LOT # (test code = 3575) [id number] POCT PREG TEST DATE (test code = 3576) Lab Interpretation (test code = Normal 57217-0) [facility] 12:45:21 Test Item Value Reference Range Interpretation Comments LIPASE (test code = 8665578792) 41 U/L 0-220 Lab Interpretation (test code = Normal 94257-0) [facility] [id number] 10:57:00 Test Item Value Reference Range Interpretation Comments POCT PREG (test code = 1605) Negative On board controls acceptable with Present C Line (test code = 3574) POCT PREG LOT # (test code = 3575) [id number] POCT PREG TEST DATE (test 03/12/2023 code = 3576) Lab Interpretation (test code = Normal 63117-5) [facility] METABOLIC PANEL (NA, K, CL, CO2, GLUCOSE, BUN, CREATININE, CA)2022-01-18 10:56:51 Test Item Value Reference Range Interpretation Comments NA (test code = 137 mmol/L 135-145 9139898421) K (test code = 4.6 mmol/L 3.5-5 Slight 9154700413) hemolysis CL (test code = 108 mmol/L 98-108 3569158858) CO2 TOTAL (test code 22 mmol/L 23-31 L = 7836381075) AGAP (test code = 2-16 9050260246) BUN (test code = 11 mg/dL 7-23 Slight 7532281985) hemolysis GLUCOSE (test code = 83 mg/dL 70-110 2529188613) CREATININE (test code 0.68 mg/dL 0.5-1.04 = 3387128367) CALCIUM (test code = 8.8 mg/dL 8.6-10.6 4378022683) eGFR (test code = mL/min/1.73m2 4462996685) WESLEY (test code = WESLEY) Association of [...] tests). Lab Interpretation Abnormal (test code = 97732-8) [facility] (53239) (ALB,T.PRO,BILI T,BU/BC,ALT,AST,ALK PHOS)2022-01-18 10:56:51 Test Item Value Reference Range Interpretation Comments TOTAL BILI (test code = 9700910543) 0.6 mg/dL 0.1-1.1 BILI UNCON (test code = 3601457129) 0.1 mg/dL 0.1-1.1 BILI CONJ (test code = 2774040649) 0.0 mg/dL 0-0.3 T PROTEIN (test code = 0782543070) 8.6 g/dL 6.3-8.2 H ALBUMIN (test code = 2928195140) 5.1 g/dL 3.5-5 H ALK PHOS (test code = 4240725986) 79 U/L 34-122 ALTv (test code = 1742-6) 117 U/L 5-35 H AST(SGOT) (test code = 2428233060) 163 U/L 13-40 H Lab Interpretation (test code = Abnormal 95117-6) [facility], [id number] 10:54:25 Test Item Value Reference Range Interpretation Comments PREG SERUM (test code Negative = 8064408651) WESLEY (test code = WESLEY) Less than 10 IU/L. ?If low titer or ectopic is suspected, resubmit specimen in 48-72 hours. [facility] WITH [id number] 10:40:49 Test Item Value Reference Range Interpretation [...] RDW-SD (test code = 45.3 fL 39-49.9 79913-7) RDW-CV (test code = 14.5 % 12-15.5 788-0) PLT (test code = See_Comment [Automated 777-3) message] The sy stem which generated this result transmitted reference range : 166 - 358 10*3/ ?L. The reference r david was not used to interpret this result as normal/abnormal . MPV (test code = 9.5 fL 9.5-12.9 97094-1) NRBC/100 WBC (test See_Comment [Automat ed code = 2746236811) message] The system which generated this result transmitted reference range : 0.0 - 10.0 /100 WBCs. The refer ence range was not u sed to interpret th is result as normal/abnormal . NRBC x10^3 (test code See_Comment [Auto mated = 5537343985) message] The s ystem which generated this result transmitted reference range : 10*3/?L. The reference range was not used to interpret this result as normal/abnormal . GRAN MAT (NEUT) % 47.6 % (test code = 770-8) IMM GRAN % (test code 0.60 % = 3824191234) LYMPH % (test code = 39.9 % 736-9) MONO % (test code = 5.9 % 5905-5) EOS % (test code = 5.3 % 713-8) BASO % (test code = 0.7 % 706-2) GRAN MAT x10^3(ANC) 4.45 10*3/uL 1.88-7.09 (test code = 1373676519) IMM GRAN x10^3 (test 0.06 10*3/uL 0-0.06 code = 4795741362) LYMPH x10^3 (test code 3.74 10*3/uL 1.32-3.29 H = 731-0) MONO x10^3 (test code 0.55 10*3/uL 0.33-0.92 = 742-7) EOS x10^3 (test code = 0.50 10*3/uL 0.03-0.39 H 711-2) BASO x10^3 (test code 0.07 10*3/uL 0.01-0.07 = 704-7) Lab Interpretation Abnormal (test code = 50253-5) [facility] [id number] 18:31:00 Test Item Value Reference Range Interpretation Comments POCT PREG (test code = 1605) Negative On board controls acceptable with C Yes Line (test code = 3574) POCT PREG LOT # (test code = 3575) POCT PREG TEST DATE (test code = 3576) [facility] URINALYSIS W/O SPECIFIC [id number] 18:31:00 Test Item Value Reference Range Interpretation [...] code = 3257) Trace Negative - Negative [facility]"
[2022-03-22] MEDS ORDERED: KETOROLAC 30 MG/ML INJ ONE (06:46)
[2022-03-22 06:58] LABS: Urine Blood 3+ (Negative); Urine Glucose Negative (Negative); Urine Protein Negative (Negative); Urine Specific Gravity 1.025 (1.005-1.030)
[2022-03-22 07:06] LABS: Absolute Lymphocytes (CBC) 2.7 K/uL (0.7-4.9); Hematocrit 34.4 % (36.0-45.0); Lymphocytes % 22.9 % (15.3-44.8); MCV 86.9 fL (80-100); MPV 7.3 fL (7.6-11.3); RBC Red Blood Cell Count 3.96 M/uL (3.86-4.86)
[2022-03-22] MEDS ORDERED: PROMETHAZINE INJ 25 MG/ML AMP ONE (07:23)
[2022-03-22 07:49] LABS: Potassium 3.2 mmol/L (3.5-5.1)
[2022-03-22] MEDS ORDERED: MORPHINE 2 MG/ML SYR ONE (08:06)
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
[2022-03-22 09:28] VITALS: TEMP 98.4
[2022-03-22 09:30] VITALS: BP 133/96; O2SAT 97
[2022-03-22 09:32] LABS: Urine Specific Gravity/Preg 1.025 (1.005-1.030)
== END 2022-03-22 09:01 | disposition home or self-care (01) ==
LOC: ER 06:18
DX: R10.9 Unspecified abdominal pain (principal)
CPT/HCPCS: 85025; 80048; 36415; 81025; 81003; 74177; 99284; Q9967; J2550; J2270

== ENCOUNTER 2022-04-07 08:26 | Emergency (ER) | payer OTHER ==
--- OUTSIDE RECORDS SUMMARY | 2022-04-07 08:40 | XMS REPORT | Continuity of Care Document ---
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 00 the Medical morning Branch and 1 tablet in the evening. Take with meals. ondansetron 2021-05 Yes [id number] 4mg Take 1 [facility] 4 mg 1-03 tablet by ity of disintegrat 00:00: mouth [place] ing tablet 00 every 8 Medica l (eight) Branch hours as needed for Nausea and Vomiting (N/V). ketorolac 2021-05 Yes [id number] 10mg Take 1 U nivers 10 mg 1-03 tablet by ity of tablet 00:00: mouth [place] 00 every 6 Medical (six) Branch hours as needed for Pain (scale 7-10). proMETHazin 2021-05 Yes [id number] 25mg Take 1 [facility] e 25 mg 1-03 tablet by ity of tablet 00:00: mouth [place] 00 every 6 Medical (six) Branch hours as needed for N/V unresponsi ve to Ondansetro n. carvediloL 2021-05 Yes [id number] 25mg Take 1 U nivers 25 mg 1-03 tablet by ity of tablet 00:00: mouth in [place] 00 the Medical morning Branch and 1 tablet in the evening. Take with meals. cephALEXin 2021-05- Yes [id number] 500mg Take 1 [facility] 500 mg 05-15 capsule by ity of capsule 00:00: 05:59 mouth 4 [place] 00 :00 ([facility]) Medical times Branch daily for 3 days. cephALEXin 2021-05- Yes [id number] 500mg Take 1 [facility] 500 mg 05-15 capsule by ity of capsule 00:00: 05:59 mouth 4 [place] 00 :00 ([facility]) Medical times Branch daily for 3 days. cephALEXin 2021-05- Yes [id number] 500mg Take 1 [facility] 500 mg 05-15 capsule by ity of capsule 00:00: 05:59 mouth 4 [place] 00 :00 ([facility]) Medical times Branch daily for 3 days. predniSONE 2021-05- Yes [id number] 20mg Take 1 [facility] 20 mg 0-31 11-03 tablet by ity of tablet 00:00: 04:59 mouth in [place] 00 :00 the Medical morning Branch for 2 days. methocarbam 2021-05- No 500mg 500 mg, U nivers oL 0-30 10-30 Oral, ity of (ROBAXIN) 16:45: 17:08 ONCE, 1 [place] tablet 500 00 :00 dose, On Medic al mg Sun Branch 03/11/22 at 1200, [place] dexamethaso 2021-05- No 10mg 10 mg, Uni vers ne sod phos 0-30 10-30 Slow IV ity of PF 16:00: 16:00 Push, [place] injection 00 :00 ONCE, 1 Medical 10 mg dose, On [facility] 03/11/22 at 1100, 1 mL diphenhydrA 2021-05- No 25mg 25 mg, Uni vers MINE 0-30 10-30 Slow IV ity of (BENADRYL) 15:46: 16:00 [place], [place] injection 00 :00 ONCE, 1 Medical 25 mg dose, On [facility] 03/11/22 at 1100, STAT NaCl 0.9% 2021-05- No 1000mL at 999 Uni vers (NS) IV 0-30 10-30 mL/hr, ity of infusion 15:45: 16:04 Intravenou [place] 1,000 mL 00 :00 s, ONCE, 1 Medic al dose, On [facility] 03/11/22 at 1045, Routine butalbital- 2021-05- No [...] 00 :00 ONCE, 1 Medical dose, On [facility] 03/11/22 at 0945, [place] proMETHazin 2021-05- No 12.5mg 12.5 mg, Univers e 0-30 10-30 IV ity of (PHENERGAN) 14:45: 15:04 Piggyback, [place] 12.5 mg in 00 :00 ONCE, 1 Medica l NaCl 0.9% dose, On Branch (NS) 50 mL Sun IV 03/11/22 piggyback at 0945, [place] proMETHazin 2021-05 Yes [id number] 25mg Take 1 [facility] e 25 mg 0-30 tablet by ity of tablet 00:00: mouth [place] 00 every 6 Medical (six) Branch hours as needed for Nausea and Vomiting (N/V). methocarbam 2021-05 Yes [id number] 500mg Take 1 [facility] oL 500 mg 0-30 tablet by ity o f tablet 00:00: mouth 3 [place] 00 (three) Medical times Branch daily as needed for Pain (scale 7-10). proMETHazin 2021-05 Yes [id number] 25mg Take 1 [facility] e 25 mg 0-30 tablet by ity of tablet 00:00: mouth [place] 00 every 6 Medical (six) Branch hours as needed for Nausea and Vomiting (N/V). methocarbam 2021-05 Yes [id number] 500mg Take 1 [facility] oL 500 mg 0-30 tablet by ity o f tablet 00:00: mouth 3 00 (three) Medical times Branch daily as needed for Pain (scale 7-10). proMETHazin 2021-05 Yes [id number] 25mg Take 1 [facility] e 25 mg 0-30 tablet by ity of tablet 00:00: mouth [place] 00 every 6 Medical (six) Branch hours as needed for Nausea and Vomiting (N/V). methocarbam 2021-05 Yes [id number] 500mg Take 1 [facility] oL 500 mg 0-30 tablet by ity o f tablet 00:00: mouth 3 00 (three) Medical times Branch daily as needed for Pain (scale 7-10). proMETHazin 2021-05 Yes [id number] 25mg Take 1 [facility] e 25 mg 0-30 tablet by ity of tablet 00:00: mouth [place] 00 every 6 Medical (six) Branch hours as needed for Nausea and Vomiting (N/V). methocarbam 2021-05 Yes [id number] 500mg Take 1 [facility] oL 500 mg 0-30 tablet by ity o f tablet 00:00: mouth 3 00 (three) Medical times Branch daily as needed for Pain (scale 7-10). proMETHazin 2021-05 Yes [id number] 25mg Take 1 [facility] e 25 mg 0-30 tablet by ity of tablet 00:00: mouth [place] 00 every 6 Medical (six) Branch hours as needed for Nausea and Vomiting (N/V). methocarbam 2021-05 Yes [id number] 500mg Take 1 [facility] oL 500 mg 0-30 tablet by ity o f tablet 00:00: mouth 3 00 (three) Medical times Branch daily as needed for Pain (scale 7-10). proMETHazin 2021-05 Yes [id number] 25mg Take 1 [facility] e 25 mg 0-30 tablet by ity of tablet 00:00: mouth [place] 00 every 6 Medical (six) Branch hours as needed for Nausea and Vomiting (N/V). methocarbam 2021-05 Yes [id number] 500mg Take 1 Univers oL 500 mg 0-30 tablet by ity o f tablet 00:00: mouth 3 [place] 00 (three) Medical times Branch daily as needed for Pain (scale 7-10). proMETHazin 2021-05 Yes [id number] 25mg Take 1 [facility] e 25 mg 0-30 tablet by ity of tablet 00:00: mouth [place] 00 every 6 Medical (six) Branch hours as needed for Nausea and Vomiting (N/V). methocarbam 2021-05 Yes [id number] 500mg Take 1 [facility] oL 500 mg 0-30 tablet by ity o f tablet 00:00: mouth 3 00 (three) Medical times Branch daily as needed for Pain (scale 7-10). proMETHazin 2021-05 Yes [id number] 25mg Take 1 [facility] e 25 mg 0-30 tablet by ity of tablet 00:00: mouth [place] 00 every 6 Medical (six) Branch hours as needed for Nausea and Vomiting (N/V). methocarbam 2021-05 Yes [id number] 500mg Take 1 Univers oL 500 mg 0-30 tablet by ity o f tablet 00:00: mouth 3 00 (three) Medical times Branch daily as needed for Pain (scale 7-10). proMETHazin 2021-05 Yes [id number] 25mg Take 1 [facility] e 25 mg 0-30 tablet by ity of tablet 00:00: mouth [place] 00 every 6 Medical (six) Branch hours as needed for Nausea and Vomiting (N/V). methocarbam 2021-05 Yes [id number] 500mg Take 1 Univers oL 500 mg 0-30 tablet by ity o f tablet 00:00: mouth 3 [place] 00 (three) Medical times Branch daily as needed for Pain (scale 7-10). proMETHazin 2021-05 Yes [id number] 25mg Take 1 [facility] e 25 mg 0-30 tablet by ity of tablet 00:00: mouth [place] 00 every 6 Medical (six) Branch hours as needed for Nausea and Vomiting (N/V). methocarbam 2021-05 Yes [id number] 500mg Take 1 [facility] oL 500 mg 0-30 tablet by ity o f tablet 00:00: mouth 3 [place] 00 (three) Medical times Branch daily as needed for Pain (scale 7-10). proMETHazin 2021-05 Yes [id number] 25mg Take 1 [facility] e 25 mg 0-30 tablet by ity of tablet 00:00: mouth [place] 00 every 6 Medical (six) Branch hours as needed for Nausea and Vomiting (N/V). methocarbam 2021-05 Yes [id number] 500mg Take 1 [facility] oL 500 mg 0-30 tablet by ity o f tablet 00:00: mouth 3 [place] 00 (three) Medical times Branch daily as needed for Pain (scale 7-10). topiramate 2021-05 Yes [id number] 100mg Take 4 [facility] 25 mg 0-21 tablets by ity of tablet 00:00: mouth in [place] 00 the Medical morning. Branch topiramate 2021-05 Yes [id number] 100mg Take 4 [facility] 25 mg 0-21 tablets by ity of tablet 00:00: mouth in [place] 00 the Medical morning. Branch topiramate 2021-05 Yes [id number] 100mg Take 4 [facility] 25 mg 0-21 tablets by ity of tablet 00:00: mouth in [place] the Medical morning. Branch topiramate 2021-05 Yes [id number] 100mg Take 4 [facility] 25 mg 0-21 tablets by ity of tablet 00:00: mouth in [place] the Medical morning. Branch topiramate 2021-05 Yes [id number] 100mg Take 4 [facility] 25 mg 0-21 tablets by ity of tablet 00:00: mouth in [place] the Medical morning. Branch topiramate 2021-05 Yes [id number] 100mg Take 4 [facility] 25 mg 0-21 tablets by ity of tablet 00:00: mouth in [place] 00 the Medical morning. Branch topiramate 2021- Yes [id number] 100mg Take 4 [facility] 25 mg 0-21 tablets by ity of tablet 00:00: mouth in [place] 00 the Medical morning. Branch topiramate 2021- Yes [id number] 100mg Take 4 [facility] 25 mg 0-21 tablets by ity of tablet 00:00: mouth in [place] 00 the Medical morning. Branch topiramate 2021-05 Yes [id number] 100mg Take 4 [facility] 25 mg 0-21 tablets by ity of tablet 00:00: mouth in [place] 00 the Medical morning. Branch topiramate 2021-05 Yes [id number] 100mg Take 4 [facility] 25 mg 0-21 tablets by ity of tablet 00:00: mouth in [place] 00 the Medical morning. Branch topiramate 2021-05 Yes [id number] 100mg Take 4 [facility] 25 mg 0-21 tablets by ity of tablet 00:00: mouth in [place] 00 the Medical morning. Branch topiramate 2021-05 Yes [id number] 100mg Take 4 [facility] 25 mg 0-21 tablets by ity of tablet 00:00: mouth in [place] 00 the Medical morning. Branch diphenhydrA 2021-05- No 25mg Take 25 mg Univers MINE 25 mg 0-18 10-18 by mouth ity of capsule 09:39: 00:00 every 6 [place] 59 :00 (six) Medical hours as Branch needed for Allergies. diphenhydrA 2021-05- No 25mg Take 25 mg Univers MINE 25 mg 0-18 10-18 by mouth ity of capsule 09:39: 00:00 every 6 [place] 59 :00 (six) Medical hours as Branch needed for Allergies. diphenhydrA 2021-05- No 25mg Take 25 mg Univers MINE 25 mg 0-18 10-18 by mouth ity of capsule 09:39: 00:00 every 6 [place] 59 :00 (six) Medical hours as Branch needed for Allergies. diphenhydrA 2021-05- No 25mg Take 25 mg Univers MINE 25 mg 0-18 10-18 by mouth ity of capsule 09:39: 00:00 every 6 [place] 59 :00 (six) Medical hours as Branch needed for Allergies. citalopram 2021-05- No Take by Uni vers hydrobromid 0-18 10-18 mouth. ity o f e 09:39: 00:00 [place] (CITALOPRAM 49 :00 Medical ORAL) Branch citalopram 2021-05- No Take by Uni vers hydrobromid 0-18 10-18 mouth. ity o f e 09:39: 00:00 [place] (CITALOPRAM 49 :00 Medical ORAL) Branch citalopram [...] 28 :00 Medical Branch albuterol 2021-05 Yes [id number] 2{puff} Inhale 2 Univers 90 0-18 Puffs ity of mcg/actuati 00:00: every 6 [place] on inhaler 00 (six) Medical hours as Branch needed for Wheezing or Shortness of Breath. albuterol 2021-05 Yes [id number] 2{puff} Inhale 2 Univers 90 0-18 Puffs ity of mcg/actuati 00:00: every 6 [place] on inhaler 00 (six) Medical hours as Branch needed for Wheezing or Shortness of Breath. albuterol 2021-05 Yes [id number] 2{puff} Inhale 2 Univers 90 0-18 Puffs ity of mcg/actuati 00:00: every 6 [place] on inhaler 00 (six) Medical hours as Branch needed for Wheezing or Shortness of Breath. albuterol 2021-05 Yes [id number] 2{puff} Inhale 2 Univers 90 0-18 Puffs ity of mcg/actuati 00:00: every 6 [place] on inhaler 00 (six) Medical hours as Branch needed for Wheezing or Shortness of Breath. albuterol 2021-05 Yes [id number] 2{puff} Inhale 2 Univers 90 0-18 Puffs ity of mcg/actuati 00:00: every 6 [place] on inhaler 00 (six) Medical hours as Branch needed for Wheezing or Shortness of Breath. albuterol 2021-05 Yes [id number] 2{puff} Inhale 2 Univers 90 0-18 Puffs ity of mcg/actuati 00:00: every 6 [place] on inhaler 00 (six) Medical hours as Branch needed for Wheezing or Shortness of Breath. albuterol 2021-05 Yes [id number] 2{puff} Inhale 2 Univers 90 0-18 Puffs ity of mcg/actuati 00:00: every 6 [place] on inhaler 00 (six) Medical hours as Branch needed for Wheezing or Shortness of Breath. albuterol 2021-05 Yes [id number] 2{puff} Inhale 2 Univers 90 0-18 Puffs ity of mcg/actuati 00:00: every 6 [place] on inhaler 00 (six) Medical hours as Branch needed for Wheezing or Shortness of Breath. albuterol 2021-05 Yes [id number] 2{puff} Inhale 2 Univers 90 0-18 Puffs ity of mcg/actuati 00:00: every 6 [place] on inhaler 00 (six) Medical hours as Branch needed for Wheezing or Shortness of Breath. albuterol 2021-05 Yes [id number] 2{puff} Inhale 2 Univers 90 0-18 Puffs ity of mcg/actuati 00:00: every 6 [place] on inhaler 00 (six) Medical hours as Branch needed for Wheezing or Shortness of Breath. albuterol 2021-05 Yes [id number] 2{puff} Inhale 2 Univers 90 0-18 Puffs ity of mcg/actuati 00:00: every 6 [place] on inhaler 00 (six) Medical hours as Branch needed for Wheezing or Shortness of Breath. albuterol 2021-05 Yes [id number] 2{puff} Inhale 2 Univers 90 0-18 Puffs ity of mcg/actuati 00:00: every 6 [place] on inhaler 00 (six) Medical hours as Branch needed for Wheezing or Shortness of Breath. albuterol 2021-05 Yes [id number] 2{puff} Inhale 2 Univers 90 0-18 Puffs ity of mcg/actuati 00:00: every 6 [place] on inhaler 00 (six) Medical hours as Branch needed for Wheezing or Shortness of Breath. albuterol 2021-05 Yes [id number] 2{puff} Inhale 2 Univers 90 0-18 Puffs ity of mcg/actuati 00:00: every 6 [place] on inhaler 00 (six) Medical hours as Branch needed for Wheezing or Shortness of Breath. albuterol 2021-05 Yes [id number] 2{puff} Inhale 2 Univers 90 0-18 Puffs ity of mcg/actuati 00:00: every 6 [place] on inhaler 00 (six) Medical hours as Branch needed for Wheezing or Shortness of Breath. albuterol 2021-05 Yes [id number] 2{puff} Inhale 2 [facility] 90 0-18 Puffs ity of mcg/actuati 00:00: every 6 [place] on inhaler 00 (six) Medical hours as Branch needed for Wheezing or Shortness of Breath. albuterol 2021-05 Yes [id number] 2{puff} Inhale 2 Univers 90 0-18 Puffs ity of mcg/actuati 00:00: every 6 [place] on inhaler 00 (six) Medical hours as Branch needed for Wheezing or Shortness of Breath. SUMAtriptan 2021-05- No 50mg Take 50 mg Univers 50 mg 0-18 -09 by mouth ity of tablet 00:00: 00:00 as needed [place] 00 :00 for Medical Migraine. Branch Take one tablet at onset of migraine, may take another tablet 2 hours after initial dose if no relief with first dose. DO NOT EXCEED 100mg in a 24 hour period. benzonatate 2021-05- Yes [id number] 200mg Take 1 [facility] 200 mg 0-18 - capsule by ity of capsule 00:00: 04:59 mouth 3 [place] 00 :00 (three) Medical times Branch daily as needed for Cough for up to 7 days. benzonatate 2021-05- Yes [id number] 200mg Take 1 [facility] 200 mg 0-18 10-26 capsule by ity of capsule 00:00: 04:59 mouth 3 [place] 00 :00 (three) Medical times Branch daily as needed for Cough for up to 7 days. benzonatate 2021-05- Yes [id number] 200mg Take 1 [facility] 200 mg 0-18 10-26 capsule by ity of capsule 00:00: 04:59 mouth 3 [place] 00 :00 (three) Medical times Branch daily as needed for Cough for up to 7 days. benzonatate 2021-05- Yes [id number] 200mg Take 1 [facility] 200 mg 0-18 10-26 capsule by ity of capsule 00:00: 04:59 mouth 3 [place] 00 :00 (three) Medical times Branch daily as needed for Cough for up to 7 days. benzonatate 2021-05- Yes [id number] 200mg Take 1 [facility] 200 mg 0-18 10-26 capsule by ity of capsule 00:00: 04:59 mouth 3 [place] 00 :00 (three) Medical times Branch daily as needed for Cough for up to 7 days. benzonatate 2021-05- Yes [id number] 200mg Take 1 [facility] 200 mg 0-18 10-26 capsule by ity of capsule 00:00: 04:59 mouth 3 [place] 00 :00 (three) Medical times Branch daily as needed for Cough for up to 7 days. SUMAtriptan 2021-05- Yes [id number] 50mg Take 1 [facility] 50 mg 0-18 10-19 [id number] tablet by ity of tablet 00:00: 04:59 mouth once [place] 00 :00 now for 1 Medical dose. Branch SUMAtriptan 2021-05- Yes [id number] 50mg Take 1 [facility] 50 mg 0-18 10-19 9105 tablet by ity of tablet 00:00: 04:59 mouth once [place] 00 :00 now for 1 Medical dose. Branch butalbital- 2021-05- No 1{tbl} 1 tablet, Univers acetaminoph 0-12 10-12 Oral, ity of en-caff 08:15: 08:09 ONCE, 1 [place] (ESGIC) 00 :00 dose, On Medical 50-325-40 Wed Branch mg tablet 1 02/21/22 tablet at 0315, [place] butorphanol 2021-05- No 1mg 1 mg, IV U nivers (STADOL) 002-21 Push, ity of injection 1 08:15: 07:28 ONCE, 1 [place] mg 00 :00 dose, On Medical Wed Branch 02/21/22 at 0315, Routine NaCl 0.9% 2021-05 No 1000mL at 999 Uni vers (NS) bolus 002-21 mL/hr, ity of infusion 07:15: 08:40 1,000 mL, [place] 1,000 mL 00 :00 IV Medical Infusion, Branch ONCE, 1 dose, On 02/21/22 at 0215, [place] proMETHazin 2021-05 No 12.5mg 12.5 mg, Univers e 02-21 IV ity of (PHENERGAN) 06:30: 06:38 Piggyback, [place] 12.5 mg in 00 :00 ONCE, 1 Medica l NaCl 0.9% dose, On Branch (NS) 50 mL Wed IV 02/21/22 piggyback at 0130, [place] dexamethaso 2021-05- No 10mg 10 mg, Uni vers ne sod phos 02-21 Slow IV ity of PF 06:30: 06:38 Push, [place] injection 00 :00 ONCE, 1 Medical 10 mg dose, On Branch 02/21/22 at 0130, 1 mL ketorolac 2021-05 No 15mg 15 mg, Unive rs (TORADOL) 02-21 Slow IV ity of injection 06:30: 06:38 Push, [place] 15 mg 00 :00 ONCE, 1 Medical dose, On Branch 02/21/22 at 0130, [place] diphenhydrA 2021-05 No 25mg 25 mg, Uni vers MINE 02-21 Slow IV ity of (BENADRYL) 06:30: 06:38 Push, [place] injection 00 :00 ONCE, 1 Medical 25 mg dose, On Branch 02/21/22 at 0130, STAT FENTanyl PF 2021-05 No 50ug 50 mcg, Un sushant (SUBLIMAZE 002-18 Slow IV ity o f (PF)) 20:30: 19:44 Push, [place] injection 00 :00 ONCE, 1 Medical 50 mcg dose, On Branch 02/18/22 at 1530, Routine ketorolac 2021-05 No 30mg 30 mg, Unive rs (TORADOL) 002-18 Slow IV ity of injection 20:15: 20:09 Push, [place] 30 mg 00 :00 ONCE, 1 Medical dose, On Branch Ros[place] 02/18/22 at 1515, [place] iopamidol 2021-05 No [id number] 60mL 60 mL, Un sushant (ISOVUE 02-18 Intravenou ity o f 370-500 mL) 19:30: 17:30 s, ONCE, 1 [place] injection 00 :00 dose, On Medica l 60 mL [facility] 02/18/22 at 1430, Routine proMETHazin 2021-05 No 12.5mg 12.5 mg, Univers e 02-18 IV ity of (PHENERGAN) 18:15: 18:19 Piggyback, [place] 12.5 mg in 00 :00 ONCE, 1 Medica l NaCl 0.9% dose, On Branch (NS) 50 mL [place] IV 02/18/22 at piggyback 1315, [place] FENTanyl PF 2021-05 No 50ug 50 mcg, Un sushant (SUBLIMAZE 02-18 Slow IV ity o f (PF)) 18:00: 17:26 Push, [place] injection 00 :00 ONCE, 1 Medical 50 mcg dose, On Branch [place] 02/18/22 at 1300, Routine ondansetron 2021-05 No 4mg 4 mg, Slow Univers (ZOFRAN 02-18 IV Push, ity of (PF)) 17:15: 17:27 ONCE, 1 [place] injection 4 00 :00 dose, On Medi yessi mg [facility] 02/18/22 at 1215, [place] morpHINE (2 No 4mg 4 mg, Slow Univers mg/mL) 01-18 IV Push, ity of injection 4 15:15: 14:49 ONCE, 1 [place] mg 00 :00 dose, On Medical Kathie 01/18/22 Branch at 1015, STAT ondansetron 2021- No 4mg 4 mg, Slow Univers (ZOFRAN 01-18 IV Push, ity of (PF)) 13:30: 13:33 ONCE, 1 [place] injection 4 00 :00 dose, On Medi yessi mg [place] 01/18/22 Branch at 0830, [place] morpHINE (4 0 2021- No 4mg 4 mg, Slow Univers mg/mL) 01-18 IV Push, ity of injection 4 13:30: 13:34 ONCE, 1 [place] mg 00 :00 dose, On Medical Kath[place] 01/18/22 Branch at 0830, STAT morpHINE (4 2021- No 4mg 4 mg, Slow [facility] mg/mL) 01-18 IV Push, ity of injection 4 12:30: 11:39 ONCE, 1 [place] mg 00 :00 dose, On Medical [facility] 01/18/22 Branch at 0730, STAT famotidine [...] 00 :00 dose, On Medi yessi mg [facility] 01/18/22 Branch at 0630, [place] iodixanoL 2021- No [id number] 80mL 80 mL, U nivers (VISIPAQUE 01-18 [...] Medical Infusion, Branch ONCE, 1 dose, On [place] 01/18/22 at 0615, [place] morpHINE (4 2021-2021- No 4mg 4 mg, [...] Indication s: acute pain ondansetron 2021-0 Yes [id number] 4mg Take 1 [facility] 4 mg 9- [id number] tablet by ity of disintegrat 00:00: mouth [place] ing tablet 00 every 8 Medica l (eight) Branch hours as needed for Nausea and Vomiting (N/V). ibuprofen 2021-0 Yes [id number] 600mg Take 1 [facility] 600 mg 9- [id number] tablet by ity of tablet 00:00: mouth [place] 00 every 6 Medical (six) Branch hours as needed for Pain (scale 4-6). traMADoL 50 2021-0 Yes [id number] 50mg Take 1 Univ ers mg tablet 9-08 tablet by ity o f 00:00: mouth [place] 00 every 6 Medical (six) Branch hours as needed for Pain (scale 7-10). Indication s: acute pain ondansetron 2021-0 Yes [id number] 4mg Take 1 [facility] 4 mg 9- [id number] tablet by ity of disintegrat 00:00: mouth [place] ing tablet 00 every 8 Medica l (eight) Branch hours as needed for Nausea and Vomiting (N/V). ibuprofen 2021-0 Yes [id number] 600mg Take 1 [facility] 600 mg 9-08 [id number] tablet by ity of tablet 00:00: mouth [place] 00 every 6 Medical (six) Branch hours as needed for Pain (scale 4-6). traMADoL 50 2021-0 Yes [id number] 50mg Take 1 Univ ers mg tablet 9-08 tablet by ity o f 00:00: mouth [place] 00 every 6 Medical (six) Branch hours as needed for Pain (scale 7-10). Indication s: acute pain ondansetron 2022-0 Yes [id number] 4mg Take 1 [facility] 4 mg 9-08 [id number] tablet by ity of disintegrat 00:00: mouth [place] ing tablet 00 every 8 Medica l (eight) Branch hours as needed for Nausea and Vomiting (N/V). ibuprofen 2022-0 Yes [id number] 600mg Take 1 [facility] 600 mg 9-08 [id number] tablet by ity of tablet 00:00: mouth [place] 00 every 6 Medical (six) Branch hours as needed for Pain (scale 4-6). traMADoL 50 202-0 Yes [id number] 50mg Take 1 Univ ers mg tablet 9-08 tablet by ity o f 00:00: mouth [place] 00 every 6 Medical (six) Branch hours as needed for Pain (scale 7-10). Indication s: acute pain ondansetron 2022-0 Yes [id number] 4mg Take 1 [facility] 4 mg 9-08 [id number] tablet by ity of disintegrat 00:00: mouth [place] ing tablet 00 every 8 Medica l (eight) Branch hours as needed for Nausea and Vomiting (N/V). ibuprofen 2-0 Yes [id number] 600mg Take 1 [facility] 600 mg 9-08 [id number] tablet by ity of tablet 00:00: mouth [place] 00 every 6 Medical (six) Branch hours as needed for Pain (scale 4-6). traMADoL 50 2021-0 Yes [id number] 50mg Take 1 Univ ers mg tablet 9-08 tablet by ity o f 00:00: mouth [place] 00 every 6 Medical (six) Branch hours as needed for Pain (scale 7-10). Indication s: acute pain ondansetron 2022-0 Yes [id number] 4mg Take 1 Univers 4 mg 9-08 [id number] tablet by ity of disintegrat 00:00: mouth [place] ing tablet 00 every 8 Medica l (eight) Branch hours as needed for Nausea and Vomiting (N/V). ibuprofen 2022-0 Yes [id number] 600mg Take 1 [facility] 600 mg 9-08 [id number] tablet by ity of tablet 00:00: mouth [place] 00 every 6 Medical (six) Branch hours as needed for Pain (scale 4-6). traMADoL 50 2-0 Yes [id number] 50mg Take 1 Univ ers mg tablet 9-08 tablet by ity o f 00:00: mouth [place] 00 every 6 Medical (six) Branch hours as needed for Pain (scale 7-10). Indication s: acute pain ondansetron 2022-0 Yes [id number] 4mg Take 1 [facility] 4 mg 9-08 [id number] tablet by ity of disintegrat 00:00: mouth [place] ing tablet 00 every 8 Medica l (eight) Branch hours as needed for Nausea and Vomiting (N/V). ibuprofen 2022-0 Yes [id number] 600mg Take 1 [facility] 600 mg 9-08 [id number] tablet by ity of tablet 00:00: mouth [place] 00 every 6 Medical (six) Branch hours as needed for Pain (scale 4-6). traMADoL 50 2021-0 Yes [id number] 50mg Take 1 Univ ers mg tablet 9-08 tablet by ity o f 00:00: mouth [place] 00 every 6 Medical (six) Branch hours as needed for Pain (scale 7-10). Indication s: acute pain ondansetron 2021-0 Yes [id number] 4mg Take 1 [facility] 4 mg 9-08 [id number] tablet by ity of disintegrat 00:00: mouth [place] ing tablet 00 every 8 Medica l (eight) Branch hours as needed for Nausea and Vomiting (N/V). ibuprofen 2021-0 Yes [id number] 600mg Take 1 [facility] 600 mg 9-08 [id number] tablet by ity of tablet 00:00: mouth [place] 00 every 6 Medical (six) Branch hours as needed for Pain (scale 4-6). traMADoL 50 2021-0 Yes [id number] 50mg Take 1 Univ ers mg tablet 9-08 tablet by ity o f 00:00: mouth [place] 00 every 6 Medical (six) Branch hours as needed for Pain (scale 7-10). Indication s: acute pain ondansetron 2022-0 Yes [id number] 4mg Take 1 [facility] 4 mg 9-08 [id number] tablet by ity of disintegrat 00:00: mouth [place] ing tablet 00 every 8 Medica l (eight) Branch hours as needed for Nausea and Vomiting (N/V). ibuprofen 2022-0 Yes [id number] 600mg Take 1 [facility] 600 mg 9-08 [id number] tablet by ity of tablet 00:00: mouth [place] 00 every 6 Medical (six) Branch hours as needed for Pain (scale 4-6). traMADoL 50 2021- No [id number] 50mg Take 1 Uni vers mg tablet 01-1818 tablet by ity of 00:00: 00:00 mouth [place] 00 :00 every 6 Medical (six) Branch hours as needed for Pain (scale 7-10). Indication s: acute pain ondansetron 2021- No [id number] 4mg Take 1 [facility] 4 mg 01-18 [id number] tablet by ity of disintegrat 00:00: 00:[place] 00 :00 every 8 Medica l (eight) Branch hours as needed for Nausea and Vomiting (N/V). ibuprofen 2021- No [id number] 600mg Take 1 [facility] 600 mg 01-18 [id number] tablet by ity o f tablet 00:00: [...] Indication s: acute pain ondansetron 2021- No [id number] 4mg Take 1 [facility] 4 mg 01-18 [id number] tablet by ity of disintegrat 00:00: 00:00 [place] 00 :00 every 8 Medica l (eight) Branch hours as needed for Nausea and Vomiting (N/V). ibuprofen 2021- No [id number] 600mg Take 1 [facility] 600 mg 01-18 [id number] tablet by ity o f tablet 00:00: 00:00 mouth [place] 00 :00 every 6 Medical (six) Branch hours as needed for Pain (scale 4-6). traMADoL 50 2021- No [id number] 50mg Take 1 Uni vers mg tablet 01-1818 tablet by ity of 00:00: 00:00 mouth [place] 00 :00 every 6 Medical (six) Branch hours as needed for Pain (scale 7-10). Indication s: acute pain ondansetron 2021- No [id number] 4mg Take 1 [facility] 4 mg 01-18 [id number] tablet by ity of disintegrat 00:00: 00:00 [place] tablet 00 :00 every 8 Medica l (eight) Branch hours as needed for Nausea and Vomiting (N/V). ibuprofen 2021- No [id number] 600mg Take 1 [facility] 600 mg 01-18 [id number] tablet by ity o f tablet 00:00: [...] Indication s: acute pain ondansetron 2021- No [id number] 4mg Take 1 [facility] 4 mg 01-18 [id number] tablet by ity of disintegrat 00:00: 00:00 mouth [place] tablet 00 :00 every 8 Medica l (eight) Branch hours as needed for Nausea and Vomiting (N/V). ibuprofen 2021- No [id number] 600mg Take 1 [facility] 600 mg 01-18 [id number] tablet by ity o f tablet 00:00: 00:00 mouth [place] 00 :00 every 6 Medical (six) Branch hours as needed for Pain (scale 4-6). predniSONE 2021- Yes [id number] 40mg Take 2 [facility] 20 mg 01-16 tablets by ity of tablet 00:00: 04:59 mouth in [place] 00 :00 the morning Branch for 7 days. predniSONE 2021- Yes [id number] 40mg Take 2 [facility] 20 mg 01-16 tablets by ity of tablet 00:00: 04:59 mouth in [place] 00 :00 [facility] Branch for 7 days. morpHINE (4 2021- [...] [place] mg 00 :00 dose, On Medical [facility] 01/15/22 Branch at 1000, [place] ondansetron 2021- No 8mg 8 mg, Slow Univers (ZOFRAN 01-15 IV Push, ity of (PF)) 14:15: 14:37 ONCE, 1 [place] injection 8 00 :00 dose, On Medi yessi mg [facility] 01/15/22 Branch at 0915, [place] dexamethaso 2021- No 10mg 10 mg, Uni vers ne sod phos 01-15 Slow IV ity of PF 14:15: 14:37 Push, [place] injection 00 :00 ONCE, 1 Medical 10 mg dose, On Branch Sat01/15/22 at 0915, 1 mL proMETHazin 2021-0 Yes [id number] 25mg Take 1 Univers e 25 mg 9-05 tablet by ity of tablet 00:00: mouth [place] 00 every 6 Medical (six) Branch hours as needed for Nausea and Vomiting (N/V). proMETHazin 2021-0 Yes [id number] 25mg Take 1 Univers e 25 mg 9-05 tablet by ity of tablet 00:00: mouth [place] 00 every 6 Medical (six) Branch hours as needed for Nausea and Vomiting (N/V). proMETHazin 2-0 Yes [id number] 25mg Take 1 Univers e 25 mg 9-05 tablet by ity of tablet 00:00: mouth [place] 00 every 6 Medical (six) Branch hours as needed for Nausea and Vomiting (N/V). proMETHazin 2021-0 Yes [id number] 25mg Take 1 Univers e 25 mg 9-05 tablet by ity of tablet 00:00: mouth [place] 00 every 6 Medical (six) Branch hours as needed for Nausea and Vomiting (N/V). proMETHazin 2021-0 Yes [id number] 25mg Take 1 Univers e 25 mg 9-05 tablet by ity of tablet 00:00: mouth [place] 00 every 6 Medical (six) Branch hours as needed for Nausea and Vomiting (N/V). proMETHazin 2021-0 Yes [id number] 25mg Take 1 [facility] e 25 mg 9-05 tablet by ity of tablet 00:00: mouth [place] 00 every 6 Medical (six) Branch hours as needed for Nausea and Vomiting (N/V). proMETHazin 2021-0 Yes [id number] 25mg Take 1 Univers e 25 mg 9-05 tablet by ity of tablet 00:00: mouth [place] 00 every 6 Medical (six) Branch hours as needed for Nausea and Vomiting (N/V). proMETHazin 2021-0 Yes [id number] 25mg Take 1 Univers e 25 mg 9-05 tablet by ity of tablet 00:00: mouth [place] 00 every 6 Medical (six) Branch hours as needed for Nausea and Vomiting (N/V). proMETHazin 2021-0 Yes [id number] 25mg Take 1 Univers e 25 mg 9-05 tablet by ity of tablet 00:00: mouth [place] 00 every 6 Medical (six) Branch hours as needed for Nausea and Vomiting (N/V). proMETHazin 2022-0 2022- No [id number] 25mg Take 1 Univers e 25 mg 9-05 10-18 tablet by ity of tablet 00:00: 00:00 mouth [place] 00 :00 every 6 Medical (six) Branch hours as needed for Nausea and Vomiting (N/V). proMETHazin 2021-0 2022- No [id number] 25mg Take 1 Univers e 25 mg 9-05 10-18 tablet by ity of tablet 00:00: 00:00 mouth [place] 00 :00 every 6 Medical (six) Branch hours as needed for Nausea and Vomiting (N/V). proMETHazin 2021-2021- No [id number] 25mg Take 1 Univers e 25 mg 9-05 10-18 tablet by ity of tablet 00:00: 00:00 mouth [place] 00 :00 every 6 Medical (six) Branch hours as needed for Nausea and Vomiting (N/V). proMETHazin 2021-0 2021- No [id number] 25mg Take 1 Univers e 25 mg 9-05 10-18 tablet by ity of tablet 00:00: 00:00 mouth [place] 00 :00 every 6 Medical (six) Branch hours as needed for Nausea and Vomiting (N/V). ondansetron 2021- No 4mg 4 mg, Univ ers (ZOFRAN-ODT 01-09 Oral, ity of ) 01:45: 00:56 ONCE, 1 [place] disintegrat 00 :00 dose, On Medi yessi ing tablet [facility] 4 mg 01/08/22 at 2045, Routine HYDROcodone 2021- No 1{tbl} 1 tablet, Univers -acetaminop 01-09 Oral, ity of hen (NORCO 00:45: 00:37 ONCE, 1 [place] as 5) 5-325 mg 00 :00 dose, On [facility] yessi tablet 1 [facility] tablet 01/08/22 at 1945, [place] diphenhydrA 2021- No 25mg 25 mg, Uni vers MINE 01-08 Slow IV ity of (BENADRYL) 23:45: 23:51 [place], [place] injection 00 :00 ONCE, 1 Medical 25 mg dose, On Branch [facility] 01/08/22 at 1845, [place] dexamethaso 2021- No 10mg 10 mg, Uni vers ne sod phos 01-08 Slow IV ity of PF 23:45: 23:50 [place], [place] injection 00 :00 ONCE, 1 Medical 10 mg dose, On Branch [facility] 01/08/22 at 1845, 1 mL ketorolac 2021- No 30mg 30 mg, Unive rs (TORADOL) 01-08 Slow IV ity of injection 23:45: 23:51 Push, [place] 30 mg 00 :00 ONCE, 1 Medical dose, On Branch 01/08/22 at 1845, [place] ondansetron 2021-0 Yes [id number] 4mg Take 1 [facility] 4 mg 8-29 tablet by ity of disintegrat 00:00: mouth [place] ing tablet 00 every 8 Medica l (eight) Branch hours as needed for Nausea and Vomiting (N/V). acetaminoph 2-0 Yes [id number] 650mg Take 1 [facility] en (TYLENOL 8-29 tablet by ity of ARTHRITIS 00:00: mouth [place] PAIN) 650 00 every 8 Medical mg CR (eight) Branch tablet hours as needed for Pain. ketorolac 2022-0 Yes [id number] 10mg Take 1 U nivers 10 mg 8-29 tablet by ity of tablet 00:00: mouth [place] 00 every 6 Medical (six) Branch hours as needed for Pain (scale 4-6) or Pain (scale 7-10). metaxalone 2-0 Yes [id number] 800mg Take 1 [facility] (SKELAXIN) 8-29 tablet by ity of 800 mg 00:00: mouth in [place] tablet 00 the Medical morning Branch and 1 tablet at noon and 1 tablet in the evening. ondansetron 2021-0 Yes [id number] 4mg Take 1 [facility] 4 mg 8-29 tablet by ity of disintegrat 00:00: mouth [place] ing tablet 00 every 8 Medica l (eight) Branch hours as needed for Nausea and Vomiting (N/V). acetaminoph 2-0 Yes [id number] 650mg Take 1 [facility] en (TYLENOL 8-29 tablet by ity of ARTHRITIS 00:00: mouth [place] PAIN) 650 00 every 8 Medical mg CR (eight) Branch tablet hours as needed for Pain. ketorolac 2022-0 Yes [id number] 10mg Take 1 U nivers 10 mg 8-29 tablet by ity of tablet 00:00: mouth [place] 00 every 6 Medical (six) Branch hours as needed for Pain (scale 4-6) or Pain (scale 7-10). metaxalone 2022-0 Yes [id number] 800mg Take 1 [facility] (SKELAXIN) 8-29 tablet by ity of 800 mg 00:00: mouth in [place] tablet 00 the Medical morning Branch and 1 tablet at noon and 1 tablet in the evening. ondansetron 2022-0 Yes [id number] 4mg Take 1 [facility] 4 mg 8-29 tablet by ity of disintegrat 00:00: mouth [place] ing tablet 00 every 8 Medica l (eight) Branch hours as needed for Nausea and Vomiting (N/V). acetaminoph 2022-0 Yes [id number] 650mg Take 1 [facility] en (TYLENOL 8-29 tablet by ity of ARTHRITIS 00:00: mouth [place] PAIN) 650 00 every 8 Medical mg CR (eight) Branch tablet hours as needed for Pain. ketorolac 2022-0 Yes [id number] 10mg Take 1 U nivers 10 mg 8-29 tablet by ity of tablet 00:00: mouth [place] 00 every 6 Medical (six) Branch hours as needed for Pain (scale 4-6) or Pain (scale 7-10). metaxalone 2022-0 Yes [id number] 800mg Take 1 [facility] (SKELAXIN) 8-29 tablet by ity of 800 mg 00:00: mouth in [place] tablet 00 the Medical morning Branch and 1 tablet at noon and 1 tablet in the evening. ondansetron 2-0 Yes [id number] 4mg Take 1 [facility] 4 mg 8-29 tablet by ity of disintegrat 00:00: mouth [place] ing tablet 00 every 8 Medica l (eight) Branch hours as needed for Nausea and Vomiting (N/V). acetaminoph 2-0 Yes [id number] 650mg Take 1 [facility] en (TYLENOL 8-29 tablet by ity of ARTHRITIS 00:00: mouth [place] PAIN) 650 00 every 8 Medical mg CR (eight) Branch tablet hours as needed for Pain. ketorolac 2022-0 Yes [id number] 10mg Take 1 U nivers 10 mg 8-29 tablet by ity of tablet 00:00: mouth [place] 00 every 6 Medical (six) Branch hours as needed for Pain (scale 4-6) or Pain (scale 7-10). metaxalone 2022-0 Yes [id number] 800mg Take 1 [facility] (SKELAXIN) 8-29 tablet by ity of 800 mg 00:00: mouth in [place] tablet 00 the Medical morning Branch and 1 tablet at noon and 1 tablet in the evening. ondansetron 2022-0 Yes [id number] 4mg Take 1 [facility] 4 mg 8-29 tablet by ity of disintegrat 00:00: mouth [place] ing tablet 00 every 8 Medica l (eight) Branch hours as needed for Nausea and Vomiting (N/V). acetaminoph 2-0 Yes [id number] 650mg Take 1 [facility] en (TYLENOL 8-29 tablet by ity of ARTHRITIS 00:00: mouth [place] PAIN) 650 00 every 8 Medical mg CR (eight) Branch tablet hours as needed for Pain. ketorolac 2022-0 Yes [id number] 10mg Take 1 U nivers 10 mg 8-29 tablet by ity of tablet 00:00: mouth [place] 00 every 6 Medical (six) Branch hours as needed for Pain (scale 4-6) or Pain (scale 7-10). metaxalone 2-0 Yes [id number] 800mg Take 1 [facility] (SKELAXIN) 8-29 tablet by ity of 800 mg 00:00: mouth in [place] tablet 00 the Medical morning Branch and 1 tablet at noon and 1 tablet in the evening. ondansetron 2-0 Yes [id number] 4mg Take 1 [facility] 4 mg 8-29 tablet by ity of disintegrat 00:00: mouth [place] ing tablet 00 every 8 Medica l (eight) Branch hours as needed for Nausea and Vomiting (N/V). acetaminoph 2-0 Yes [id number] 650mg Take 1 [facility] en (TYLENOL 8-29 tablet by ity of ARTHRITIS 00:00: mouth [place] PAIN) 650 00 every 8 Medical mg CR (eight) Branch tablet hours as needed for Pain. ketorolac 2022-0 Yes [id number] 10mg Take 1 U nivers 10 mg 8-29 tablet by ity of tablet 00:00: mouth [place] 00 every 6 Medical (six) Branch hours as needed for Pain (scale 4-6) or Pain (scale 7-10). metaxalone 2022-0 Yes [id number] 800mg Take 1 [facility] (SKELAXIN) 8-29 tablet by ity of 800 mg 00:00: mouth in [place] tablet 00 the Medical morning Branch and 1 tablet at noon and 1 tablet in the evening. ondansetron 2022-0 Yes [id number] 4mg Take 1 [facility] 4 mg 8-29 tablet by ity of disintegrat 00:00: mouth [place] ing tablet 00 every 8 Medica l (eight) Branch hours as needed for Nausea and Vomiting (N/V). acetaminoph 2022-0 Yes [id number] 650mg Take 1 [facility] en (TYLENOL 8-29 tablet by ity of ARTHRITIS 00:00: mouth [place] PAIN) 650 00 every 8 Medical mg CR (eight) Branch tablet hours as needed for Pain. ketorolac 2022-0 Yes [id number] 10mg Take 1 U nivers 10 mg 8-29 tablet by ity of tablet 00:00: mouth [place] 00 every 6 Medical (six) Branch hours as needed for Pain (scale 4-6) or Pain (scale 7-10). metaxalone 2022-0 Yes [id number] 800mg Take 1 [facility] (SKELAXIN) 8-29 tablet by ity of 800 mg 00:00: mouth in [place] tablet 00 the Medical morning Branch and 1 tablet at noon and 1 tablet in the evening. ondansetron 2-0 Yes [id number] 4mg Take 1 [facility] 4 mg 8-29 tablet by ity of disintegrat 00:00: mouth [place] ing tablet 00 every 8 Medica l (eight) Branch hours as needed for Nausea and Vomiting (N/V). acetaminoph 2022-0 Yes [id number] 650mg Take 1 [facility] en (TYLENOL 8-29 tablet by ity of ARTHRITIS 00:00: mouth [place] PAIN) 650 00 every 8 Medical mg CR (eight) Branch tablet hours as needed for Pain. ketorolac 2022-0 Yes [id number] 10mg Take 1 U nivers 10 mg 8-29 tablet by ity of tablet 00:00: mouth [place] 00 every 6 Medical (six) Branch hours as needed for Pain (scale 4-6) or Pain (scale 7-10). metaxalone 2022-0 Yes [id number] 800mg Take 1 [facility] (SKELAXIN) 8-29 tablet by ity of 800 mg 00:00: mouth in [place] tablet 00 the Medical morning Branch and 1 tablet at noon and 1 tablet in the evening. ondansetron 2022-0 Yes [id number] 4mg Take 1 [facility] 4 mg 8-29 tablet by ity of disintegrat 00:00: mouth [place] ing tablet 00 every 8 Medica l (eight) Branch hours as needed for Nausea and Vomiting (N/V). acetaminoph 2021-0 Yes [id number] 650mg Take 1 [facility] en (TYLENOL 8-29 tablet by ity of ARTHRITIS 00:00: mouth [place] PAIN) 650 00 every 8 Medical mg CR (eight) Branch tablet hours as needed for Pain. ketorolac 2021-0 Yes [id number] 10mg Take 1 U nivers 10 mg 8-29 tablet by ity of tablet 00:00: mouth [place] 00 every 6 Medical (six) Branch hours as needed for Pain (scale 4-6) or Pain (scale 7-10). metaxalone 2021-0 Yes [id number] 800mg Take 1 [facility] (SKELAXIN) 8-29 tablet by ity of 800 mg 00:00: mouth in [place] tablet 00 the Medical morning Branch and 1 tablet at noon and 1 tablet in the evening. ondansetron 2021-0 Yes [id number] 4mg Take 1 [facility] 4 mg 8-29 tablet by ity of disintegrat 00:00: mouth [place] ing tablet 00 every 8 Medica l (eight) Branch hours as needed for Nausea and Vomiting (N/V). acetaminoph 2021-0 Yes [id number] 650mg Take 1 [facility] en (TYLENOL 8-29 tablet by ity of ARTHRITIS 00:00: mouth [place] PAIN) 650 00 every 8 Medical mg CR (eight) Branch tablet hours as needed for Pain. ketorolac 2021-0 Yes [id number] 10mg Take 1 U nivers 10 mg 8-29 tablet by ity of tablet 00:00: mouth [place] 00 every 6 Medical (six) Branch hours as needed for Pain (scale 4-6) or Pain (scale 7-10). metaxalone 2021-0 Yes [id number] 800mg Take 1 Univers (SKELAXIN) 8-29 tablet by ity of 800 mg 00:00: mouth in [place] tablet 00 the Medical morning Branch and 1 tablet at noon and 1 tablet in the evening. acetaminoph 2021-0 Yes [id number] 650mg Take 1 Univers en (TYLENOL 8-29 tablet by ity of ARTHRITIS 00:00: mouth [place] PAIN) 650 00 every 8 Medical mg CR (eight) Branch tablet hours as needed for Pain. acetaminoph 2021-0 Yes [id number] 650mg Take 1 Univers en (TYLENOL 8-29 tablet by ity of ARTHRITIS 00:00: mouth [place] PAIN) 650 00 every 8 Medical mg CR (eight) Branch tablet hours as needed for Pain. acetaminoph 2021-0 Yes [id number] 650mg Take 1 Univers en (TYLENOL 8-29 tablet by ity of ARTHRITIS 00:00: mouth [place] PAIN) 650 00 every 8 Medical mg CR (eight) Branch tablet hours as needed for Pain. acetaminoph 0 Yes [id number] 650mg Take 1 Univers en (TYLENOL 8-29 tablet by ity of ARTHRITIS 00:00: mouth [place] PAIN) 650 00 every 8 Medical mg CR (eight) Branch tablet hours as needed for Pain. acetaminoph 0 Yes [id number] 650mg Take 1 [facility] en (TYLENOL 8-29 tablet by ity of ARTHRITIS 00:00: mouth [place] PAIN) 650 00 every 8 Medical mg CR (eight) Branch tablet hours as needed for Pain. acetaminoph 0 Yes [id number] 650mg Take 1 [facility] en (TYLENOL 8-29 tablet by ity of ARTHRITIS 00:00: mouth [place] PAIN) 650 00 every 8 Medical mg CR (eight) Branch tablet hours as needed for Pain. acetaminoph 0 Yes [id number] 650mg Take 1 [facility] en (TYLENOL 8-29 tablet by ity of ARTHRITIS 00:00: mouth [place] PAIN) 650 00 every 8 Medical mg CR (eight) Branch tablet hours as needed for Pain. acetaminoph 0 Yes [id number] 650mg Take 1 [facility] en (TYLENOL 8-29 tablet by ity of ARTHRITIS 00:00: mouth [place] PAIN) 650 00 every 8 Medical mg CR (eight) Branch tablet hours as needed for Pain. acetaminoph 0 Yes [id number] 650mg Take 1 [facility] en (TYLENOL 8-29 tablet by ity of ARTHRITIS 00:00: mouth [place] PAIN) 650 00 every 8 Medical mg CR (eight) Branch tablet hours as needed for Pain. acetaminoph 0 Yes [id number] 650mg Take 1 [facility] en (TYLENOL 8-29 tablet by ity of ARTHRITIS 00:00: mouth [place] PAIN) 650 00 every 8 Medical mg CR (eight) Branch tablet hours as needed for Pain. acetaminoph 0 Yes [id number] 650mg Take 1 [facility] en (TYLENOL 8-29 tablet by ity of ARTHRITIS 00:00: mouth [place] PAIN) 650 00 every 8 Medical mg CR (eight) Branch tablet hours as needed for Pain. acetaminoph 2021-0 Yes [id number] 650mg Take 1 [facility] en (TYLENOL 8-29 tablet by ity of ARTHRITIS 00:00: mouth [place] PAIN) 650 00 every 8 Medical mg CR (eight) Branch tablet hours as needed for Pain. acetaminoph 2021-0 Yes [id number] 650mg Take 1 Univers en (TYLENOL 8-29 tablet by ity of ARTHRITIS 00:00: mouth [place] PAIN) 650 00 every 8 Medical mg CR (eight) Branch tablet hours as needed for Pain. acetaminoph 2021-0 Yes [id number] 650mg Take 1 Univers en (TYLENOL 8-29 tablet by ity of ARTHRITIS 00:00: mouth [place] PAIN) 650 00 every 8 Medical mg CR (eight) Branch tablet hours as needed for Pain. acetaminoph 0 Yes [id number] 650mg Take 1 [facility] en (TYLENOL 8-29 tablet by ity of ARTHRITIS 00:00: mouth [place] PAIN) 650 00 every 8 Medical mg CR (eight) Branch tablet hours as needed for Pain. acetaminoph 0 Yes [id number] 650mg Take 1 Univers en (TYLENOL 8-29 tablet by ity of ARTHRITIS 00:00: mouth [place] PAIN) 650 00 every 8 Medical mg CR (eight) Branch tablet hours as needed for Pain. acetaminoph 2021-0 Yes [id number] 650mg Take 1 Univers en (TYLENOL 8-29 tablet by ity of ARTHRITIS 00:00: mouth [place] PAIN) 650 00 every 8 Medical mg CR (eight) Branch tablet hours as needed for Pain. ondansetron 2021-0 2021- No [id number] 4mg Take 1 [facility] 4 mg 8-29 10-18 tablet by ity of disintegrat 00:00: 00:00 [place] tablet 00 :00 every 8 Medica l (eight) Branch hours as needed for Nausea and Vomiting (N/V). ketorolac 2021-0 2- No [id number] 10mg Take 1 [facility] 10 mg 8-29 10-18 tablet by ity of tablet 00:00: 00:00 mouth [place] 00 :00 every 6 Medical (six) Branch hours as needed for Pain (scale 4-6) or Pain (scale 7-10). metaxalone 2022-0 2022- No [id number] 800mg Take 1 [facility] (SKELAXIN) 8-29 10-18 tablet by ity of 800 mg 00:00: 00:00 mouth in [place] tablet 00 :00 the Medical morning Branch and 1 tablet at noon and 1 tablet in the evening. ondansetron 2022-0 2022- No [id number] 4mg Take 1 [facility] 4 mg 8-29 10-18 tablet by ity of disintegrat 00:00: 00:00 [place] tablet 00 :00 every 8 Medica l (eight) Branch hours as needed for Nausea and Vomiting (N/V). ketorolac 2022-0 2022- No [id number] 10mg Take 1 [facility] 10 mg 8-29 10-18 tablet by ity of tablet 00:00: 00:00 mouth [place] 00 :00 every 6 Medical (six) Branch hours as needed for Pain (scale 4-6) or Pain (scale 7-10). metaxalone 2022-0 2022- No [id number] 800mg Take 1 [facility] (SKELAXIN) 8-29 10-18 tablet by ity of 800 mg 00:00: 00:00 mouth in [place] tablet 00 :00 the Medical morning Branch and 1 tablet at noon and 1 tablet in the evening. ondansetron 2022-0 2022- No [id number] 4mg Take 1 [facility] 4 mg 8-29 10-18 tablet by ity of disintegrat 00:00: 00:00 [place] tablet 00 :00 every 8 Medica l (eight) Branch hours as needed for Nausea and Vomiting (N/V). ketorolac 2022-0 2022- No [id number] 10mg Take 1 [facility] 10 mg 8-29 10-18 tablet by ity of tablet 00:00: 00:00 mouth [place] 00 :00 every 6 Medical (six) Branch hours as needed for Pain (scale 4-6) or Pain (scale 7-10). metaxalone 2022-0 2022- No [id number] 800mg Take 1 [facility] (SKELAXIN) 8-29 10-18 tablet by ity of 800 mg 00:00: 00:00 mouth in [place] tablet 00 :00 the Medical morning Branch and 1 tablet at noon and 1 tablet in the evening. ondansetron 2021-0 2- No [id number] 4mg Take 1 [facility] 4 mg 8-29 10-18 tablet by ity of disintegrat 00:00: 00:00 [place] tablet 00 :00 every 8 Medica l (eight) Branch hours as needed for Nausea and Vomiting (N/V). ketorolac 2021-0 2021- No [id number] 10mg Take 1 [facility] 10 mg 8-29 10-18 tablet by ity of tablet 00:00: 00:00 mouth [place] 00 :00 every 6 Medical (six) Branch hours as needed for Pain (scale 4-6) or Pain (scale 7-10). metaxalone 2021-0 2021- No [id number] 800mg Take 1 Univers (SKELAXIN) 8-29 10-18 [...] every 12 Medical (twelve) Branch hours. trazodone/d 2-0 2022- No Take by Un sushant ietary 8-02 08-02 mouth. ity of supp. no.8 15:08: 00:00 [place] (TRAZAMINE 46 :00 Medical ORAL) Branch diphenhydrA 2021-0 Yes 25mg Take 25 mg Univers MINE 25 mg 8-02 by mouth ity o f capsule 13:03: every 6 [place] 04 (six) Medical hours as Branch needed for Allergies. carbamazepi 0 Yes Take by Uni vers ne 8-02 mouth. ity of (TEGRETOL 13:03: [place] ORAL) Medical Branch citalopram Yes Take by Univ ers hydrobromid 8-02 mouth. ity of e 13:03: [place] (CITALOPRAM 04 Medical ORAL) Branch ALBUTEROL 0 Yes Univers INHALE 8- ity of 13:03: Medical Branch diphenhydrA Yes 25mg Take 25 mg Univers MINE 25 mg 802 by mouth ity o f capsule 13:03: every 6 [place] [address] (six) Medical hours as Branch needed for Allergies. carbamazepi Yes Take by Uni vers ne 8- mouth. ity of (TEGRETOL 13:03: [place] ORAL) Medical Branch citalopram Yes Take by Univ ers hydrobromid 8- mouth. ity of e 13:03: [place] (CITALOPRAM 04 Medical ORAL) Branch ALBUTEROL 0 Yes Univers INHALE 12-12 ity of 13:03: [place] [address] Medical Branch diphenhydrA Yes 25mg Take 25 mg Univers MINE 25 mg 02 by mouth ity o f capsule 13:03: every 6 [place] [address] (six) Medical hours as Branch needed for Allergies. carbamazepi Yes Take by Uni vers ne 8- mouth. ity of (TEGRETOL 13:03: [place] ORAL) Medical Branch citalopram Yes Take by Univ ers hydrobromid 8-02 mouth. ity of e 13:03: [place] (CITALOPRAM 04 Medical ORAL) Branch ALBUTEROL 0 Yes Univers INHALE 802 ity of 13:03: [place] [address] Medical Branch diphenhydrA 0 Yes 25mg Take 25 mg Univers MINE 25 mg 8-02 by mouth ity o f capsule 13:03: every 6 [place] [address] (six) Medical hours as Branch needed for Allergies. carbamazepi 0 Yes Take by Uni vers ne 8-02 mouth. ity of (TEGRETOL 13:03: [place] ORAL) 04 Medical Branch citalopram Yes Take by Univ ers hydrobromid 8-02 mouth. ity of e 13:03: [place] (CITALOPRAM 04 Medical ORAL) Branch ALBUTEROL 0 Yes Univers INHALE 802 ity of 13:03: Medical Branch diphenhydrA 0 Yes 25mg Take 25 mg Univers MINE 25 mg 802 by mouth ity o f capsule 13:03: every 6 [place] 04 (six) Medical hours as Branch needed for Allergies. carbamazepi 0 Yes Take by Uni vers ne 8-02 mouth. ity of (TEGRETOL 13:03: [place] ORAL) Medical Branch citalopram Yes Take by Univ ers hydrobromid 8-02 mouth. ity of e 13:03: [place] (CITALOPRAM 04 Medical ORAL) Branch ALBUTEROL Yes Univers INHALE 8 ity of 13:03: [place] [address] Medical Branch diphenhydrA Yes 25mg Take 25 mg Univers MINE 25 mg 12-12 by mouth ity o f capsule 13:03: every 6 [place] 04 (six) Medical hours as Branch needed for Allergies. carbamazepi 0 Yes Take by Uni vers ne 8-02 mouth. ity of (TEGRETOL 13:03: [place] ORAL) 04 Medical Branch citalopram Yes Take by Univ ers hydrobromid 8-02 mouth. ity of e 13:03: [place] (CITALOPRAM 04 Medical ORAL) Branch ALBUTEROL 0 Yes Univers INHALE 8 ity of 13:03: [place] [address] Medical Branch diphenhydrA Yes 25mg Take 25 mg Univers MINE 25 mg 802 by mouth ity o f capsule 13:03: every 6 [place] 04 (six) Medical hours as Branch needed for Allergies. carbamazepi 0 Yes Take by Uni vers ne 8-02 mouth. ity of (TEGRETOL 13:03: [place] ORAL) 04 Medical Branch citalopram Yes Take by Univ ers hydrobromid 8-02 mouth. ity of e 13:03: [place] (CITALOPRAM 04 Medical ORAL) Branch ALBUTEROL 2022-0 Yes Univers INHALE 8 ity of 13:03: Medical Branch diphenhydrA Yes 25mg Take 25 mg [facility] MINE 25 mg 8 by mouth ity o f capsule 13:03: every 6 [place] [address] (six) Medical hours as Branch needed for Allergies. carbamazepi Yes Take by Uni vers ne 8-02 mouth. ity of (TEGRETOL 13:03: [place] ORAL) Medical Branch citalopram Yes Take by Univ ers hydrobromid 8-02 mouth. ity of e 13:03: [place] (CITALOPRAM 04 Medical ORAL) Branch ALBUTEROL Yes Univers INHALE 8 ity of 13:03: [place] [address] Medical Branch diphenhydrA Yes 25mg Take 25 mg Univers MINE 25 mg 12-12 by mouth ity o f capsule 13:03: every 6 [place] [address] (six) Medical hours as Branch needed for Allergies. carbamazepi Yes Take by Uni vers ne 8-02 mouth. ity of (TEGRETOL 13:03: [place] ORAL) Medical Branch citalopram Yes Take by Univ ers hydrobromid 8-02 mouth. ity of e 13:03: [place] (CITALOPRAM 04 Medical ORAL) Branch ALBUTEROL Yes Univers INHALE 12-12 ity of 13:03: [place] [address] Medical Branch diphenhydrA Yes 25mg Take 25 mg Univers MINE 25 mg 12-12 by mouth ity o f capsule 13:03: every 6 [place] [address] (six) Medical hours as Branch needed for Allergies. carbamazepi 0 Yes Take by Uni vers ne 8-02 mouth. ity of (TEGRETOL 13:03: [place] ORAL) Medical Branch citalopram Yes Take by Univ ers hydrobromid 8-02 mouth. ity of e 13:03: [place] (CITALOPRAM 04 Medical ORAL) Branch ALBUTEROL 0 Yes [facility] INHALE 8 ity of 13:03: [place] [address] Medical Branch diphenhydrA Yes 25mg Take 25 mg [facility] MINE 25 mg 802 by mouth ity o f capsule 13:03: every 6 [place] [address] (six) Medical hours as Branch needed for Allergies. carbamazepi Yes Take by Uni vers ne 8-02 mouth. ity of (TEGRETOL 13:03: [place] ORAL) [address] [place] [address] citalopram Yes Take by [facility] ers hydrobromid 8-02 mouth. ity of e 13:03: [place] (CITALOPRAM 04 [facility] ORAL) [place] ALBUTEROL Yes Univers INHALE 8-02 ity of 13:03: [address] ALBUTEROL Yes [facility] INHALE 8-02 ity of 13:03: [address] ALBUTEROL Yes [facility] INHALE 8-02 ity of 13:03: [address] ALBUTEROL Yes [facility] INHALE 8-02 ity of 13:03: [address] ALBUTEROL Yes Univers INHALE 8- ity of 13:03: [address] ALBUTEROL Yes [facility] INHALE 8-02 ity of 13:03: [address] ALBUTEROL Yes [facility] INHALE 8-02 ity of 13:03: [address] ALBUTEROL Yes [facility] INHALE 8-02 ity of 13:03: [address] ALBUTEROL Yes [facility] INHALE 8-02 ity of 13:03: [address] ALBUTEROL Yes [facility] INHALE 8-02 ity of 13:03: [address] ALBUTEROL Yes [facility] INHALE 8-02 ity of 13:03: [address] ALBUTEROL Yes [facility] INHALE 8-02 ity of 13:03: [address] ALBUTEROL Yes [facility] INHALE 8-02 ity of 13:03: [address] ALBUTEROL Yes [facility] INHALE 8-02 ity of 13:03: [address] ALBUTEROL Yes [facility] INHALE 8-02 ity of 13:03: [address] traZODone Yes [id number] 50mg Take 1 U nivers 50 mg 8 tablet by ity of tablet 00:00: mouth at [place] 00 bedtime. Medical Branch SERTraline 2021-0 Yes 50mg Take 1 Univers (ZOLOFT) 50 8-02 tablet by ity of mg tablet 00:00: mouth [place] 00 the Medical morning. Branch traZODone 2021-0 Yes [id number] 50mg Take 1 U nivers 50 mg 8-02 tablet by ity of tablet 00:00: mouth at [place] 00 bedtime. Medical Branch SERTraline 2021-0 Yes 50mg Take 1 Univers (ZOLOFT) 50 8-02 tablet by ity of mg tablet 00:00: mouth [place] 00 the Medical morning. Branch traZODone 2021-0 Yes [id number] 50mg Take 1 U nivers 50 mg 8-02 tablet by ity of tablet 00:00: mouth at [place] 00 bedtime. Medical Branch SERTraline 0 Yes 50mg Take 1 [facility] (ZOLOFT) 50 8-02 tablet by ity of mg tablet 00:00: mouth in [place] 00 the Medical morning. Branch traZODone 2021-0 Yes [id number] 50mg Take 1 U nivers 50 mg 8-02 tablet by ity of tablet 00:00: mouth at [place] 00 bedtime. Medical Branch SERTraline 0 Yes 50mg Take 1 [facility] (ZOLOFT) 50 8-02 tablet by ity of mg tablet 00:00: mouth [place] 00 the Medical morning. Branch traZODone 2021-0 Yes [id number] 50mg Take 1 U nivers 50 mg 8-02 tablet by ity of tablet 00:00: mouth at [place] 00 bedtime. Medical Branch SERTraline 2021-0 Yes [id number] 50mg Take 1 [facility] (ZOLOFT) 50 8-02 tablet by ity of mg tablet 00:00: mouth in [place] 00 the Medical morning. Branch traZODone 2021-0 Yes [id number] 50mg Take 1 U nivers 50 mg 8-02 tablet by ity of tablet 00:00: mouth at [place] 00 bedtime. Medical Branch SERTraline 0 Yes [id number] 50mg Take 1 [facility] (ZOLOFT) 50 8-02 tablet by ity of mg tablet 00:00: mouth in [place] 00 the Medical morning. Branch traZODone 2021-0 Yes [id number] 50mg Take 1 U nivers 50 mg 8-02 tablet by ity of tablet 00:00: mouth at [place] 00 bedtime. Medical Branch SERTraline 2021-0 Yes 50mg Take 1 Univers (ZOLOFT) 50 8-02 tablet by ity of mg tablet 00:00: mouth in [place] 00 the Medical morning. Branch traZODone 2021-0 Yes [id number] 50mg Take 1 U nivers 50 mg 8-02 tablet by ity of tablet 00:00: mouth at [place] 00 bedtime. Medical Branch SERTraline 2021-0 Yes 50mg Take 1 Univers (ZOLOFT) 50 8-02 tablet by ity of mg tablet 00:00: mouth in [place] 00 the Medical morning. Branch traZODone 2021-0 Yes [id number] 50mg Take 1 U nivers 50 mg 8-02 tablet by ity of tablet 00:00: mouth at [place] 00 bedtime. Medical Branch SERTraline 2021-0 Yes 50mg Take 1 Univers (ZOLOFT) 50 8-02 tablet by ity of mg tablet 00:00: mouth in [place] 00 the Medical morning. Branch traZODone 2021-0 Yes [id number] 50mg Take 1 U nivers 50 mg 8-02 tablet by ity of tablet 00:00: mouth at [place] 00 bedtime. Medical Branch SERTraline 2021-0 Yes 50mg Take 1 Univers (ZOLOFT) 50 8-02 tablet by ity of mg tablet 00:00: mouth in [place] 00 the Medical morning. Branch traZODone 2021-0 Yes [id number] 50mg Take 1 U nivers 50 mg 8-02 tablet by ity of tablet 00:00: mouth at [place] 00 bedtime. Medical Branch SERTraline 2021-0 Yes [id number] 50mg Take 1 Univers (ZOLOFT) 50 8-02 tablet by ity of mg tablet 00:00: mouth in [place] 00 the Medical morning. Branch traZODone 2021-0 2021- No [id number] 50mg Take 1 Univers 50 mg 8-02 10-18 tablet by ity of tablet 00:00: 00:00 mouth at [place] 00 :00 bedtime. Medical Branch SERTraline 2021- No [id number] 50mg Take 1 Univers (ZOLOFT) 50 8- 10-18 tablet by it y of mg tablet 00:00: 00:00 mouth in [place] as 00 :00 the Medical morning. Branch traZODone 2021- No [id number] 50mg Take 1 Univers 50 mg 8- 10-18 tablet by ity of tablet 00:00: 00:00 mouth at [place] 00 :00 bedtime. Medical Branch SERTraline 2021- No [id number] 50mg Take 1 Univers (ZOLOFT) 50 8- 10-18 tablet by it y of mg tablet 00:00: 00:00 mouth in [place] as 00 :00 the Medical morning. Branch traZODone 2021- No [id number] 50mg Take 1 Univers 50 mg 8- 10-18 tablet by ity of tablet 00:00: 00:00 mouth at [place] 00 :00 bedtime. Medical Branch SERTraline 2021- No [id number] 50mg Take 1 Univers (ZOLOFT) 50 8- 10-18 tablet by it y of mg tablet 00:00: 00:00 mouth in [facility] as 00 :00 the Medical morning. Branch traZODone 2021- No [id number] 50mg Take 1 Univers 50 mg 8- 10-18 tablet by ity of tablet 00:00: 00:00 mouth at [place] 00 :00 bedtime. Medical Branch SERTraline 2021- No [id number] 50mg Take 1 Univers (ZOLOFT) 50 8- 10-18 tablet by it y of mg tablet 00:00: 00:00 mouth in [place] as 00 :00 the Medical morning. Branch sulfamethox 2021- No [id number] 1{tbl} Take 1 Univers azole-trime 8- 08-06 tablet by it y of thoprim 00:00: 04:59 mouth in [place] (BACTRIM 00 :00 the Medical DS) 800-160 morning Branc h mg per and 1 tablet tablet in the evening. Do all this for 3 days. ibuprofen Yes [id number] 600mg Take 1 [facility] 600 mg 7-15 tablet by ity of tablet 00:00: mouth [place] 00 every 6 Medical (six) Branch hours as needed for Pain (scale 4-6). ibuprofen 2022-0 Yes [id number] 600mg Take 1 [facility] 600 mg 7-15 tablet by ity of tablet 00:00: mouth [place] 00 every 6 Medical (six) Branch hours as needed for Pain (scale 4-6). ibuprofen 2022-0 Yes [id number] 600mg Take 1 [facility] 600 mg 7-15 tablet by ity of tablet 00:00: mouth [place] 00 every 6 Medical (six) Branch hours as needed for Pain (scale 4-6). ibuprofen 2022-0 Yes [id number] 600mg Take 1 [facility] 600 mg 7-15 tablet by ity of tablet 00:00: mouth [place] 00 every 6 Medical (six) Branch hours as needed for Pain (scale 4-6). ibuprofen 2022-0 Yes [id number] 600mg Take 1 [facility] 600 mg 7-15 tablet by ity of tablet 00:00: mouth [place] 00 every 6 Medical (six) Branch hours as needed for Pain (scale 4-6). ibuprofen 2022-0 Yes [id number] 600mg Take 1 [facility] 600 mg 7-15 tablet by ity of tablet 00:00: mouth [place] 00 every 6 Medical (six) Branch hours as needed for Pain (scale 4-6). ibuprofen 2022-0 Yes [id number] 600mg Take 1 [facility] 600 mg 7-15 tablet by ity of tablet 00:00: mouth [place] 00 every 6 Medical (six) Branch hours as needed for Pain (scale 4-6). ibuprofen 2022-0 Yes [id number] 600mg Take 1 [facility] 600 mg 7-15 tablet by ity of tablet 00:00: mouth [place] 00 every 6 Medical (six) Branch hours as needed for Pain (scale 4-6). ibuprofen 2022-0 Yes [id number] 600mg Take 1 [facility] 600 mg 7-15 tablet by ity of tablet 00:00: mouth [place] 00 every 6 Medical (six) Branch hours as needed for Pain (scale 4-6). ibuprofen 2022-0 Yes [id number] 600mg Take 1 [facility] 600 mg 7-15 tablet by ity of tablet 00:00: mouth [place] 00 every 6 Medical (six) Branch hours as needed for Pain (scale 4-6). ibuprofen 2022-0 Yes [id number] 600mg Take 1 Univers 600 mg 7-15 tablet by ity of tablet 00:00: mouth [place] 00 every 6 Medical (six) Branch hours as needed for Pain (scale 4-6). ibuprofen 2021- No [id number] 600mg Take 1 [facility] 600 mg 7-15 10-18 tablet by ity of tablet 00:00: 00:00 mouth [place] 00 :00 every 6 Medical (six) Branch hours as needed for Pain (scale 4-6). ibuprofen 2021- No [id number] 600mg Take 1 [facility] 600 mg 7-15 10-18 tablet by ity of tablet 00:00: 00:00 mouth [place] 00 :00 every 6 Medical (six) Branch hours as needed for Pain (scale 4-6). ibuprofen 2021- No [id number] 600mg Take 1 [facility] 600 mg 7-15 10-18 tablet by ity of tablet 00:00: 00:00 mouth [place] 00 :00 every 6 Medical (six) Branch hours as needed for Pain (scale 4-6). ibuprofen 2021- No [id number] 600mg Take 1 [facility] 600 mg 7-15 [...] (scale 4-6). Indication s: acute pain bromphenira 0 Yes [id number] 5mL Take 5 mL Univers mine-pseudo - by mouth 4 it y of ephedrine-D 00:00: (four) [place] M (BROMFED 00 times Medical DM) 2-30-10 daily as Bran ch mg/5 mL needed for syrup Congestion /Allergies or Cough. naproxen 0 Yes [id number] 500mg Take 1 U nivers 500 mg 7-09 tablet by ity of tablet 00:00: mouth [place] 00 every 8 Medical (eight) Branch hours as needed for Pain (scale 4-6). cyclobenzap 2021-0 Yes [id number] 10mg Take 1 Univers rine 10 mg 7-09 tablet by ity of tablet 00:00: mouth at [place] 00 bedtime as Medical needed for Branch Muscle Spasms. bromphenira 2021-0 Yes [id number] 5mL Take 5 mL [facility] mine-pseudo 7-09 by mouth 4 it y of ephedrine-D 00:00: (four) [place] M (BROMFED 00 times Medical DM) 2-30-10 daily as Bran ch mg/5 mL needed for syrup Congestion /Allergies or Cough. naproxen 2021-0 Yes [id number] 500mg Take 1 U nivers 500 mg 7-09 tablet by ity of tablet 00:00: mouth [place] 00 every 8 Medical (eight) Branch hours as needed for Pain (scale 4-6). cyclobenzap 2021-0 Yes [id number] 10mg Take 1 Univers rine 10 mg 7-09 tablet by ity of tablet 00:00: mouth at [place] 00 bedtime as Medical needed for Branch Muscle Spasms. bromphenira 2021-0 Yes [id number] 5mL Take 5 mL [facility] mine-pseudo 7-09 by mouth 4 it y of ephedrine-D 00:00: (four) [place] M (BROMFED 00 times Medical DM) 2-30-10 daily as Bran ch mg/5 mL needed for syrup Congestion /Allergies or Cough. naproxen 2-0 Yes [id number] 500mg Take 1 U nivers 500 mg 7-09 tablet by ity of tablet 00:00: mouth [place] 00 every 8 Medical (eight) Branch hours as needed for Pain (scale 4-6). cyclobenzap 2022-0 Yes [id number] 10mg Take 1 Univers rine 10 mg 7-09 tablet by ity of tablet 00:00: mouth at [place] 00 bedtime as Medical needed for Branch Muscle Spasms. bromphenira 2022-0 Yes [id number] 5mL Take 5 mL [facility] mine-pseudo 7-09 by mouth 4 it y of ephedrine-D 00:00: (four) [place] M (BROMFED 00 times Medical DM) 2-30-10 daily as Bran ch mg/5 mL needed for syrup Congestion /Allergies or Cough. naproxen 2022-0 Yes [id number] 500mg Take 1 U nivers 500 mg 7-09 tablet by ity of tablet 00:00: mouth [place] 00 every 8 Medical (eight) Branch hours as needed for Pain (scale 4-6). cyclobenzap 2021-0 Yes [id number] 10mg Take 1 Univers rine 10 mg 7-09 tablet by ity of tablet 00:00: mouth at [place] 00 bedtime as Medical needed for Branch Muscle Spasms. bromphenira 202-0 Yes [id number] 5mL Take 5 mL [facility] mine-pseudo 7-09 by mouth 4 it y of ephedrine-D 00:00: (four) [place] M (BROMFED 00 times Medical DM) 2-30-10 daily as Bran ch mg/5 mL needed for syrup Congestion /Allergies or Cough. naproxen 2021-0 Yes [id number] 500mg Take 1 U nivers 500 mg 7-09 tablet by ity of tablet 00:00: mouth [place] 00 every 8 Medical (eight) Branch hours as needed for Pain (scale 4-6). cyclobenzap 2021-0 Yes [id number] 10mg Take 1 Univers rine 10 mg 7-09 tablet by ity of tablet 00:00: mouth at [place] 00 bedtime as Medical needed for Branch Muscle Spasms. bromphenira 2021-0 Yes [id number] 5mL Take 5 mL Univers mine-pseudo 7-09 by mouth 4 it y of ephedrine-D 00:00: (four) [place] M (BROMFED 00 times Medical DM) 2-30-10 daily as Bran ch mg/5 mL needed for syrup Congestion /Allergies or Cough. naproxen 2-0 Yes [id number] 500mg Take 1 U nivers 500 mg 7-09 tablet by ity of tablet 00:00: mouth [place] 00 every 8 Medical (eight) Branch hours as needed for Pain (scale 4-6). cyclobenzap 2022-0 Yes [id number] 10mg Take 1 Univers rine 10 mg 7-09 tablet by ity of tablet 00:00: mouth at [place] 00 bedtime as Medical needed for Branch Muscle Spasms. bromphenira 2022-0 Yes [id number] 5mL Take 5 mL [facility] mine-pseudo 7-09 by mouth 4 it y of ephedrine-D 00:00: (four) [place] M (BROMFED 00 times Medical DM) 2-30-10 daily as Bran ch mg/5 mL needed for syrup Congestion /Allergies or Cough. naproxen 2022-0 Yes [id number] 500mg Take 1 U nivers 500 mg 7-09 tablet by ity of tablet 00:00: mouth [place] 00 every 8 Medical (eight) Branch hours as needed for Pain (scale 4-6). cyclobenzap 2-0 Yes [id number] 10mg Take 1 Univers rine 10 mg 7-09 tablet by ity of tablet 00:00: mouth at [place] 00 bedtime as Medical needed for Branch Muscle Spasms. bromphenira 2-0 Yes [id number] 5mL Take 5 mL Univers mine-pseudo 7-09 by mouth 4 it y of ephedrine-D 00:00: (four) [place] M (BROMFED 00 times Medical DM) 2-30-10 daily as Bran ch mg/5 mL needed for syrup Congestion /Allergies or Cough. naproxen 2-0 Yes [id number] 500mg Take 1 U nivers 500 mg 7-09 tablet by ity of tablet 00:00: mouth [place] 00 every 8 Medical (eight) Branch hours as needed for Pain (scale 4-6). cyclobenzap 2021-0 Yes [id number] 10mg Take 1 Univers rine 10 mg 7-09 tablet by ity of tablet 00:00: mouth at [place] 00 bedtime as Medical needed for Branch Muscle Spasms. bromphenira 2-0 Yes [id number] 5mL Take 5 mL [facility] mine-pseudo 7-09 by mouth 4 it y of ephedrine-D 00:00: (four) [place] M (BROMFED 00 times Medical DM) 2-30-10 daily as Bran ch mg/5 mL needed for syrup Congestion /Allergies or Cough. naproxen 2022-0 Yes [id number] 500mg Take 1 U nivers 500 mg 7-09 tablet by ity of tablet 00:00: mouth [place] 00 every 8 Medical (eight) Branch hours as needed for Pain (scale 4-6). cyclobenzap 2022-0 Yes [id number] 10mg Take 1 Univers rine 10 mg 7-09 tablet by ity of tablet 00:00: mouth at [place] 00 bedtime as Medical needed for Branch Muscle Spasms. bromphenira 2021-0 Yes [id number] 5mL Take 5 mL [facility] mine-pseudo 7-09 by mouth 4 it y of ephedrine-D 00:00: (four) [place] M (BROMFED 00 times Medical DM) 2-30-10 daily as Bran ch mg/5 mL needed for syrup Congestion /Allergies or Cough. naproxen 2021-0 Yes [id number] 500mg Take 1 U nivers 500 mg 7-09 tablet by ity of tablet 00:00: mouth [place] 00 every 8 Medical (eight) Branch hours as needed for Pain (scale 4-6). cyclobenzap 2021-0 Yes [id number] 10mg Take 1 Univers rine 10 mg 7-09 tablet by ity of tablet 00:00: mouth at [place] 00 bedtime as Medical needed for Branch Muscle Spasms. bromphenira 2021-0 Yes [id number] 5mL Take 5 mL Univers mine-pseudo 7-09 by mouth 4 it y of ephedrine-D 00:00: (four) [place] M (BROMFED 00 times Medical DM) 2-30-10 daily as Bran ch mg/5 mL needed for syrup Congestion /Allergies or Cough. naproxen 2021-0 Yes [id number] 500mg Take 1 U nivers 500 mg 7-09 tablet by ity of tablet 00:00: mouth [place] 00 every 8 Medical (eight) Branch hours as needed for Pain (scale 4-6). cyclobenzap 2-0 Yes [id number] 10mg Take 1 Univers rine 10 mg 7-09 tablet by ity of tablet 00:00: mouth at [place] 00 bedtime as Medical needed for Branch Muscle Spasms. bromphenira 2-0 Yes [id number] 5mL Take 5 mL Univers mine-pseudo 7-09 by mouth 4 it y of ephedrine-D 00:00: (four) [place] M (BROMFED 00 times Medical DM) 2-30-10 daily as Bran ch mg/5 mL needed for syrup Congestion /Allergies or Cough. bromphenira 2022-0 Yes [id number] 5mL Take 5 mL [facility] mine-pseudo 7-09 by mouth 4 it y of ephedrine-D 00:00: (four) [place] M (BROMFED 00 times Medical DM) 2-30-10 daily as Bran ch mg/5 mL needed for syrup Congestion /Allergies or Cough. bromphenira 2-0 Yes [id number] 5mL Take 5 mL [facility] mine-pseudo 7-09 by mouth 4 it y of ephedrine-D 00:00: (four) [place] M (BROMFED 00 times Medical DM) 2-30-10 daily as Bran ch mg/5 mL needed for syrup Congestion /Allergies or Cough. bromphenira 2-0 Yes [id number] 5mL Take 5 mL [facility] mine-pseudo 7-09 by mouth 4 it y of ephedrine-D 00:00: (four) [place] M (BROMFED 00 times Medical DM) 2-30-10 daily as Bran ch mg/5 mL needed for syrup Congestion /Allergies or Cough. bromphenira 2021-0 Yes [id number] 5mL Take 5 mL [facility] mine-pseudo 7-09 by mouth 4 it y of ephedrine-D 00:00: (four) [place] M (BROMFED 00 times Medical DM) 2-30-10 daily as Bran ch mg/5 mL needed for syrup Congestion /Allergies or Cough. bromphenira 2021-0 Yes [id number] 5mL Take 5 mL Univers mine-pseudo 7-09 by mouth 4 it y of ephedrine-D 00:00: (four) [place] M (BROMFED 00 times Medical DM) 2-30-10 daily as Bran ch mg/5 mL needed for syrup Congestion /Allergies or Cough. bromphenira 2-0 Yes [id number] 5mL Take 5 mL Univers mine-pseudo 7-09 by mouth 4 it y of ephedrine-D 00:00: (four) [place] M (BROMFED 00 times Medical DM) 2-30-10 daily as Bran ch mg/5 mL needed for syrup Congestion /Allergies or Cough. bromphenira 2022-0 Yes [id number] 5mL Take 5 mL [facility] mine-pseudo 7-09 by mouth 4 it y of ephedrine-D 00:00: (four) [place] M (BROMFED 00 times Medical DM) 2-30-10 daily as Bran ch mg/5 mL needed for syrup Congestion /Allergies or Cough. bromphenira 2021-0 Yes [id number] 5mL Take 5 mL [facility] mine-pseudo 7-09 by mouth 4 it y of ephedrine-D 00:00: (four) [place] (BROMFED 00 times Medical DM) 2-30-10 daily as Bran ch mg/5 mL needed for syrup Congestion /Allergies or Cough. bromphenira 2021-0 Yes [id number] 5mL Take 5 mL [facility] mine-pseudo 7-09 by mouth 4 it y of ephedrine-D 00:00: (four) [place] (BROMFED 00 times Medical DM) 2-30-10 daily as Bran ch mg/5 mL needed for syrup Congestion /Allergies or Cough. bromphenira 2021-0 Yes [id number] 5mL Take 5 mL [facility] mine-pseudo 7-09 by mouth 4 it y of ephedrine-D 00:00: (four) [place] (BROMFED 00 times Medical DM) 2-30-10 daily as Bran ch mg/5 mL needed for syrup Congestion /Allergies or Cough. bromphenira 0 Yes [id number] 5mL Take 5 mL [facility] mine-pseudo 7-09 by mouth 4 it y of ephedrine-D 00:00: (four) [place] M (BROMFED 00 times Medical DM) 2-30-10 daily as Bran ch mg/5 mL needed for syrup Congestion /Allergies or Cough. bromphenira 0 Yes [id number] 5mL Take 5 mL [facility] mine-pseudo 7-09 by mouth 4 it y of ephedrine-D 00:00: (four) [place] (BROMFED 00 times Medical DM) 2-30-10 daily as Bran ch mg/5 mL needed for syrup Congestion /Allergies or Cough. bromphenira 2021-0 Yes [id number] 5mL Take 5 mL [facility] mine-pseudo 7-09 by mouth 4 it y of ephedrine-D 00:00: (four) [place] (BROMFED 00 times Medical DM) 2-30-10 daily as Bran ch mg/5 mL needed for syrup Congestion /Allergies or Cough. bromphenira 2021-0 2021- No [id number] 5mL Take 5 mL [facility] mine-pseudo 7-09 11-12 by mouth 4 i ty of ephedrine-D 00:00: 00:00 (four) [place] (BROMFED 00 :00 times Medical DM) 2-30-10 daily as Bran ch mg/5 mL needed for syrup Congestion /Allergies or Cough. naproxen [id number] 500mg Take 1 [facility] 500 mg 7-09 10-18 tablet by ity of tablet 00:00: 00:00 mouth [place] 00 :00 every 8 Medical (eight) Branch hours as needed for Pain (scale 4-6). cyclobenzap No [id number] 10mg Take 1 [facility] rine 10 mg 7-09 10-18 tablet by ity of tablet 00:00: 00:00 mouth at [place] 00 :00 bedtime as Medical needed for Branch Muscle Spasms. naproxen No [id number] 500mg Take 1 [facility] 500 mg 7-09 10-18 tablet by ity of tablet 00:00: 00:00 mouth [place] 00 :00 every 8 Medical (eight) Branch hours as needed for Pain (scale 4-6). cyclobenzap No [id number] 10mg Take 1 Univers rine 10 mg 7-09 10-18 tablet by ity of tablet 00:00: 00:00 mouth at [place] 00 :00 bedtime as Medical needed for Branch Muscle Spasms. naproxen No [id number] 500mg Take 1 [facility] 500 mg 7-09 10-18 tablet by ity of tablet 00:00: 00:00 mouth [place] 00 :00 every 8 Medical (eight) Branch hours as needed for Pain (scale 4-6). cyclobenzap No [id number] 10mg Take 1 Univers rine 10 mg 7-09 10-18 tablet by ity of tablet 00:00: 00:00 mouth at [place] 00 :00 bedtime as Medical needed for Branch Muscle Spasms. naproxen No [id number] 500mg Take 1 [facility] 500 mg 7-09 10-18 tablet by ity of tablet 00:00: 00:00 mouth [place] 00 :00 every 8 Medical (eight) Branch hours as needed for Pain (scale 4-6). cyclobenzap No [id number] 10mg Take 1 Univers rine 10 mg 11-18 10-18 tablet by ity of tablet 00:00: 00:00 mouth at [place] 00 :00 bedtime as Medical needed for Branch Muscle Spasms. ibuprofen 0 Yes [id number] 605mg Take 30.25 Univers 100 mg/5 mL 6-15 mL by ity of oral 00:00: mouth [place] suspension 00 every 6 Medica l (six) Branch hours as needed for Pain (scale 4-6) or Temp > 38.5 C. ibuprofen Yes [id number] 605mg Take 30.25 [facility] 100 mg/5 mL 6-15 mL by ity of oral 00:00: mouth [place] suspension 00 every 6 Medica l (six) Branch hours as needed for Pain (scale 4-6) or Temp > 38.5 C. ibuprofen Yes [id number] 605mg Take 30.25 [facility] 100 mg/5 mL 6-15 mL by ity of oral 00:00: mouth [place] suspension 00 every 6 Medica l (six) Branch hours as needed for Pain (scale 4-6) or Temp > 38.5 C. ibuprofen Yes [id number] 605mg Take 30.25 [facility] 100 mg/5 mL 6-15 mL by ity of oral 00:00: mouth [place] suspension 00 every 6 Medica l (six) Branch hours as needed for Pain (scale 4-6) or Temp > 38.5 C. ibuprofen Yes [id number] 605mg Take 30.25 [facility] 100 mg/5 mL 6-15 mL by ity of oral 00:00: mouth [place] suspension 00 every 6 Medica l (six) Branch hours as needed for Pain (scale 4-6) or Temp > 38.5 C. ibuprofen Yes [id number] 605mg Take 30.25 [facility] 100 mg/5 mL 6-15 mL by ity of oral 00:00: mouth [place] suspension 00 every 6 Medica l (six) Branch hours as needed for Pain (scale 4-6) or Temp > 38.5 C. ibuprofen Yes [id number] 605mg Take 30.25 [facility] 100 mg/5 mL 6-15 mL by ity of oral 00:00: mouth [place] suspension 00 every 6 Medica l (six) Branch hours as needed for Pain (scale 4-6) or Temp > 38.5 C. ibuprofen 2021-0 Yes [id number] 605mg Take 30.25 [facility] 100 mg/5 mL 6-15 mL by ity of oral 00:00: mouth [place] suspension 00 every 6 Medica l (six) Branch hours as needed for Pain (scale 4-6) or Temp > 38.5 C. ibuprofen 2021-0 Yes [id number] 605mg Take 30.25 [facility] 100 mg/5 mL 6-15 mL by ity of oral 00:00: mouth [place] suspension 00 every 6 Medica l (six) Branch hours as needed for Pain (scale 4-6) or Temp > 38.5 C. ibuprofen 0 Yes [id number] 605mg Take 30.25 [facility] 100 mg/5 mL 6-15 mL by ity of oral 00:00: mouth [place] suspension 00 every 6 Medica l (six) Branch hours as needed for Pain (scale 4-6) or Temp > 38.5 C. ibuprofen 2021-0 Yes [id number] 605mg Take 30.25 [facility] 100 mg/5 mL 6-15 mL by ity of oral 00:00: mouth [place] suspension 00 every 6 Medica l (six) Branch hours as needed for Pain (scale 4-6) or Temp > 38.5 C. ibuprofen 0 2- No [id number] 605mg Take 30.25 [facility] 100 mg/5 mL 6-15 10-18 mL by ity of oral 00:00: 00:00 mouth [place] suspension 00 :00 every 6 Medica l (six) Branch hours as needed for Pain (scale 4-6) or Temp > 38.5 C. ibuprofen 2021-0 2022- No [id number] 605mg Take 30.25 [facility] 100 mg/5 mL 6-15 10-18 mL by ity of oral 00:00: 00:00 mouth [place] suspension 00 :00 every 6 Medica l (six) Branch hours as needed for Pain (scale 4-6) or Temp > 38.5 C. ibuprofen 2021-0 2022- No [id number] 605mg Take 30.25 [facility] 100 mg/5 mL 6-15 10-18 mL by ity of oral 00:00: 00:00 mouth [place] suspension 00 :00 every 6 Medica l (six) Branch hours as needed for Pain (scale 4-6) or Temp > 38.5 C. ibuprofen 2021-0 2021- No [id number] 605mg Take 30.25 [facility] 100 mg/5 mL 6-15 10-18 mL by ity of oral 00:00: 00:00 mouth [place] suspension 00 :00 every 6 Medica l (six) Branch hours as needed for Pain (scale 4-6) or Temp > 38.5 C. acetaminoph 2021-0 2021- No [id number] 608mg Take 19 mL [facility] en 160 mg/5 6-15 08-02 by mouth ity of mL liquid 00:00: 00:00 [place] 6 [place] (six) Medical hours as Branch needed for Fever. DULoxetine 0 Yes [facility] 60 mg 5-27 ity of capsule 00:00: [place] [facility] DULoxetine 2021-0 Yes [facility] 60 mg 5-27 ity of capsule 00:00: [place] [address] [facility] Branch DULoxetine 2021-0 Yes [facility] 60 mg 5-27 ity of capsule 00:00: [place] [address] [facility] Branch DULoxetine 2021-0 Yes [facility] 60 mg 5-27 ity of capsule 00:00: [place] [address] [facility] Branch DULoxetine 2021-0 Yes [facility] 60 mg 5-27 ity of capsule 00:00: [place] [facility] DULoxetine 2021-0 Yes [facility] 60 mg 5-27 ity of capsule 00:00: [place] [address] [facility] Branch DULoxetine 2-0 Yes [facility] 60 mg 5-27 ity of capsule 00:00: [place] [facility] DULoxetine 2021-0 Yes [facility] 60 mg 5-27 ity of capsule 00:00: [place] [facility] DULoxetine 2-0 Yes [facility] 60 mg 5-27 ity of capsule 00:00: [place] [address] [facility] Branch DULoxetine 2-0 Yes [facility] 60 mg 5-27 ity of capsule 00:00: [place] [facility] DULoxetine 2021-0 Yes [facility] 60 mg 5-27 ity of capsule 00:00: [place] [address] [facility] Branch DULoxetine 2021-0 2- No Univer s 60 mg 5-27 10-18 ity of capsule 00:00: 00:00 [place] 00 :00 [facility] DULoxetine 0 2022- No Univer s 60 mg 5-27 10-18 ity of capsule 00:00: 00:00 [place] 00 :00 [facility] DULoxetine 2021-0 2021- No Univer s 60 mg 5-27 10-18 ity of capsule 00:00: 00:00 [place] 00 :00 [facility] DULoxetine 2021-0 2021- No Univer s 60 mg 5-27 10-18 ity of capsule 00:00: 00:00 [place] 00 :00 [facility] traZODone 2021-0 2021- No [facility] 50 mg 5-27 08-02 ity of tablet 00:00: 00:00 [place] 00 :00 [facility] mometasone Yes [id number] 1{spray Use 1 [facility] 50 5-19 } [place] in ity of mcg/actuati 00:00: each [place] on nasal 00 nostril 2 Medica l spray (two) Branch times daily. mometasone Yes [id number] 1{spray Use 1 [facility] 50 5-19 } [place] in ity of mcg/actuati 00:00: each [place] on nasal 00 nostril 2 Medica l spray (two) Branch times daily. mometasone Yes [id number] 1{spray Use 1 [facility] 50 5-19 } [place] in ity of mcg/actuati 00:00: each [place] on nasal 00 nostril 2 Medica l spray (two) Branch times daily. mometasone 2021- Yes [id number] 1{spray Use 1 [facility] 50 5-19 } [place] in ity of mcg/actuati 00:00: each [place] on nasal 00 nostril 2 Medica l spray (two) Branch times daily. mometasone Yes [id number] 1{spray Use 1 [facility] 50 5-19 } [place] in ity of mcg/actuati 00:00: each [place] on nasal 00 nostril 2 Medica l spray (two) Branch times daily. mometasone 2021- Yes [id number] 1{spray Use 1 [facility] 50 5-19 } [place] in ity of mcg/actuati 00:00: each [place] on nasal 00 nostril 2 Medica l spray (two) Branch times daily. mometasone Yes [id number] 1{spray Use 1 [facility] 50 5-19 } [place] in ity of mcg/actuati 00:00: each [place] on nasal 00 nostril 2 Medica l spray (two) Branch times daily. mometasone Yes [id number] 1{spray Use 1 [facility] 50 5-19 } [place] in ity of mcg/actuati 00:00: each [place] on nasal 00 nostril 2 Medica l spray (two) Branch times daily. mometasone Yes [id number] 1{spray Use 1 [facility] 50 5-19 } [place] in ity of mcg/actuati 00:00: each [place] on nasal 00 nostril 2 Medica l spray (two) Branch times daily. mometasone Yes [id number] 1{spray Use 1 [facility] 50 5-19 } [place] in ity of mcg/actuati 00:00: each [place] on nasal 00 nostril 2 Medica l spray (two) Branch times daily. mometasone Yes [id number] 1{spray Use 1 [facility] 50 5-19 } [place] in ity of mcg/actuati 00:00: each [place] on nasal 00 nostril 2 Medica l spray (two) Branch times daily. mometasone 2021- No [id number] 1{spray Use 1 [facility] 50 5-19 10-18 } [place] in ity of mcg/actuati 00:00: 00:00 each [place] on nasal 00 :00 nostril 2 Medica l spray (two) Branch times daily. mometasone 2021- No [id number] 1{spray Use 1 [facility] 50 5-19 10-18 } [place] in ity of mcg/actuati 00:00: 00:00 each [place] on nasal 00 :00 nostril 2 Medica l spray (two) Branch times daily. mometasone 2021- No [id number] 1{spray Use 1 [facility] 50 5-19 10-18 } [place] in ity of mcg/actuati 00:00: 00:00 each [place] on nasal 00 :00 nostril 2 Medica l spray (two) Branch times daily. mometasone 2021- No [id number] 1{spray Use 1 [facility] 50 5-19 10-18 } [place] in ity of mcg/actuati 00:00: 00:00 each [place] on nasal 00 :00 nostril 2 Medica l spray (two) Branch times daily. cetirizine Yes [id number] 10mg Take 1 U nivers (ZYRTEC) 10 5-16 tablet by ity of mg tablet 00:00: mouth [place] 00 daily. Medical Branch cetirizine Yes [id number] 10mg Take 1 U nivers (ZYRTEC) 10 5-16 tablet by ity of mg tablet 00:00: mouth [place] 00 daily. Medical Branch cetirizine Yes [id number] 10mg Take 1 U nivers (ZYRTEC) 10 5-16 tablet by ity of mg tablet 00:00: mouth [place] 00 daily. Medical Branch cetirizine Yes [id number] 10mg Take 1 U nivers (ZYRTEC) 10 5-16 tablet by ity of mg tablet 00:00: mouth [place] 00 daily. Medical Branch cetirizine Yes [id number] 10mg Take 1 U nivers (ZYRTEC) 10 5-16 tablet by ity of mg tablet 00:00: mouth [place] 00 daily. Medical Branch cetirizine Yes [id number] 10mg Take 1 U nivers (ZYRTEC) 10 5-16 tablet by ity of mg tablet 00:00: mouth [place] 00 daily. Medical Branch cetirizine Yes [id number] 10mg Take 1 U nivers (ZYRTEC) 10 5-16 tablet by ity of mg tablet 00:00: mouth [place] 00 daily. Medical Branch cetirizine Yes [id number] 10mg Take 1 U nivers (ZYRTEC) 10 5-16 tablet by ity of mg tablet 00:00: mouth [place] 00 daily. Medical Branch cetirizine Yes [id number] 10mg Take 1 U nivers (ZYRTEC) 10 5-16 tablet by ity of mg tablet 00:00: mouth [place] 00 daily. Medical Branch cetirizine Yes [id number] 10mg Take 1 U nivers (ZYRTEC) 10 5-16 tablet by ity of mg tablet 00:00: mouth [place] 00 daily. Medical Branch cetirizine Yes [id number] 10mg Take 1 U nivers (ZYRTEC) 10 5-16 tablet by ity of mg tablet 00:00: mouth [place] 00 daily. Medical Branch cetirizine 2021- No [id number] 10mg Take 1 [facility] (ZYRTEC) 10 5-16 10-18 tablet by it y of mg tablet 00:00: 00:00 mouth [place] 00 :00 daily. Medical Branch cetirizine 2021- No [id number] 10mg Take 1 [facility] (ZYRTEC) 10 5-16 10-18 tablet by it y of mg tablet 00:00: 00:00 mouth [place] 00 :00 daily. Medical Branch cetirizine 2021- No [id number] 10mg Take 1 [facility] (ZYRTEC) 10 5-16 10-18 tablet by it y of mg tablet 00:00: 00:00 mouth [place] 00 :00 daily. Medical Branch cetirizine 2021- No [id number] 10mg Take 1 [facility] (ZYRTEC) 10 5-16 10-18 tablet by it y of mg tablet 00:00: 00:00 mouth [place] 00 :00 daily. Medical Branch DULoxetine 2-0 Yes [facility] 30 mg 5-09 ity of capsule 00:00: [place] 00 [facility] gabapentin 2022-0 Yes [facility] 300 mg 5-09 ity of capsule 00:00: [place] 00 [facility] ondansetron 2022-0 Yes Univer s 4 mg tablet 5-09 ity of 00:00: [place] 00 [facility] DULoxetine 2022-0 Yes [facility] 30 mg 5-09 ity of capsule 00:00: [place] 00 [facility] gabapentin 2022-0 Yes [facility] 300 mg 5-09 ity of capsule 00:00: [place] 00 [facility] ondansetron 2022-0 Yes Univer s 4 mg tablet 5-09 ity of 00:00: [place] 00 [facility] DULoxetine 2022-0 Yes [facility] 30 mg 5-09 ity of capsule 00:00: [place] 00 [facility] gabapentin 2022-0 Yes [facility] 300 mg 5-09 ity of capsule 00:00: [place] 00 [facility] ondansetron 2022-0 Yes Univer s 4 mg tablet 5-09 ity of 00:00: [place] 00 [facility] Branch DULoxetine 2022-0 Yes [facility] 30 mg 5-09 ity of capsule 00:00: [place] 00 [facility] gabapentin 2022-0 Yes [facility] 300 mg 5-09 ity of capsule 00:00: [place] 00 [facility] ondansetron 2022-0 Yes Univer s 4 mg tablet 5-09 ity of 00:00: [place] [address] [facility] Branch DULoxetine 2022-0 Yes [facility] 30 mg 5-09 ity of capsule 00:00: [place] 00 [facility] gabapentin 2022-0 Yes [facility] 300 mg 5-09 ity of capsule 00:00: [place] 00 [facility] ondansetron 2022-0 Yes Univer s 4 mg tablet 5-09 ity of 00:00: [place] [address] [facility] Branch DULoxetine 2022-0 Yes [facility] 30 mg 5-09 ity of capsule 00:00: [place] [address] [facility] Branch gabapentin 2022-0 Yes [facility] 300 mg 5-09 ity of capsule 00:00: [place] [address] [facility] Branch ondansetron 2022-0 Yes Univer s 4 mg tablet 5-09 ity of 00:00: [place] [address] [facility] Branch DULoxetine 2022-0 Yes [facility] 30 mg 5-09 ity of capsule 00:00: [place] [address] [facility] Branch gabapentin 2022-0 Yes [facility] 300 mg 5-09 ity of capsule 00:00: [place] [address] [facility] Branch ondansetron 2022-0 Yes Univer s 4 mg tablet 5-09 ity of 00:00: [place] [address] [facility] Branch DULoxetine 2022-0 Yes [facility] 30 mg 5-09 ity of capsule 00:00: [place] [address] [facility] Branch gabapentin 2022-0 Yes [facility] 300 mg 5-09 ity of capsule 00:00: [place] 00 [facility] ondansetron 2022-0 Yes Univer s 4 mg tablet 5-09 ity of 00:00: [place] [address] [facility] Branch DULoxetine 2022-0 Yes [facility] 30 mg 5-09 ity of capsule 00:00: [place] [address] [facility] Branch gabapentin 2022-0 Yes [facility] 300 mg 5-09 ity of capsule 00:00: [place] [address] [facility] Branch ondansetron 2022-0 Yes Univer s 4 mg tablet 5-09 ity of 00:00: [place] [address] [facility] Branch DULoxetine 2022-0 Yes [facility] 30 mg 5-09 ity of capsule 00:00: [place] 00 [facility] Branch gabapentin 2022-0 Yes [facility] 300 mg - ity of capsule 00:00: [place] 00 [facility] ondansetron 2022-0 Yes Univer s 4 mg tablet - ity of 00:00: [place] 00 [facility] DULoxetine 2022-0 Yes [facility] 30 mg - ity of capsule 00:00: [place] 00 [facility] gabapentin 2022-0 Yes [facility] 300 mg - ity of capsule 00:00: [place] 00 [facility] ondansetron 2022-0 Yes Univer s 4 mg tablet - ity of 00:00: [place] 00 [facility] DULoxetine 2022-0 2022- No [facility] s 30 mg 09-18 ity of capsule 00:00: 00:00 [place] 00 :00 [facility] Branch gabapentin 2022-0 2022- No Un[facility] s 300 mg 09-18 ity of capsule 00:00: 00:00 [place] 00 :00 [facility] Branch ondansetron 2022-0 2022- No Unive rs 4 mg tablet 09-18 ity of 00:00: 00:00 [place] 00 :00 [facility] Branch DULoxetine 2022-0 2022- No [facility] s 30 mg 09-18 ity of capsule 00:00: 00:00 [place] 00 :00 [facility] Branch gabapentin 2022-0 2022- No Un[facility] s 300 mg 09-18 ity of capsule 00:00: 00:00 [place] 00 :00 [facility] ondansetron 2022-0 2022- No Un[facility] rs 4 mg tablet 09-18 ity of 00:00: 00:00 [place] 00 :00 [facility] Branch DULoxetine 2022-0 2022- No [facility] 30 mg 09-18 ity of capsule 00:00: 00:00 [place] 00 :00 [facility] gabapentin 2022-0 2022- No Un[facility] s 300 mg 09-18- ity of capsule 00:00: 00:00 [place] 00 :00 [facility] ondansetron 2022-0 2022- No Unive rs 4 mg tablet 09-18 ity of 00:00: 00:00 [place] 00 :00 [facility] Branch DULoxetine 2022-0 2022- No [facility] s 30 mg 09-18 ity of capsule 00:00: 00:00 [place] 00 :00 [facility] Branch gabapentin 2022-0 2- No [facility]iver s 300 mg 09-18 ity of capsule 00:00: 00:00 [place] 00 :00 [facility] ondansetron 2-0 2- No [facility]ive rs 4 mg tablet 09-18 ity of 00:00: 00:00 [place] 00 :00 [facility] amLODIPine 2022-0 Yes [facility] 5 mg tablet 4-22 ity of 00:00: [place] [facility] amLODIPine 2022-0 Yes 5mg Take 5 mg Un sushant 5 mg tablet 4-22 by mouth. ity of 00:00: [place] [facility] amLODIPine 2022-0 Yes [facility] 5 mg tablet 4-22 ity of 00:00: [place] [facility] amLODIPine 2022-0 Yes 5mg Take 5 mg Un sushant 5 mg tablet 4-22 by mouth. ity of 00:00: [place] [facility] amLODIPine 2022-0 Yes [facility] 5 mg tablet 4-22 ity of 00:00: [place] [facility] amLODIPine 2022-0 Yes 5mg Take 5 mg Un s[place] 5 mg tablet 4-22 by mouth. ity of 00:00: [place] [facility] amLODIPine 2022-0 Yes [facility] 5 mg tablet 4-22 ity of 00:00: [place] [facility] amLODIPine 2022-0 Yes 5mg Take 5 mg Un s[place] 5 mg tablet 4-22 by mouth. ity of 00:00: [place] [facility] amLODIPine 2022-0 Yes [facility] 5 mg tablet 4-22 ity of 00:00: [place] [facility] amLODIPine 2022-0 Yes 5mg Take 5 mg Un [place] 5 mg tablet 4-22 by mouth. ity of 00:00: [place] [facility] amLODIPine 2022-0 Yes [facility] 5 mg tablet 4-22 ity of 00:00: [place] [facility] amLODIPine 2022-0 Yes 5mg Take 5 mg Un [place] 5 mg tablet 4-22 by mouth. ity of 00:00: [place] [facility] amLODIPine 2022-0 Yes [facility] 5 mg tablet 4-22 ity of 00:00: [place] [facility] amLODIPine 2022-0 Yes 5mg Take 5 mg Un s[place] 5 mg tablet 4-22 by mouth. ity of 00:00: [place] [facility] amLODIPine 2022-0 Yes [facility] 5 mg tablet 4-22 ity of 00:00: [place] [facility] amLODIPine 2022-0 Yes 5mg Take 5 mg Un [place] 5 mg tablet -22 by mouth. ity of 00:00: [place] [facility] amLODIPine 2022-0 Yes [facility] 5 mg tablet 4-22 ity of 00:00: [place] [facility] amLODIPine 2022-0 Yes 5mg Take 5 mg Un [place] 5 mg tablet 22 by mouth. ity of 00:00: [place] [facility] amLODIPine 2022-0 Yes [facility] 5 mg tablet - ity of 00:00: [place] [facility] amLODIPine 2022-0 Yes 5mg Take 5 mg Un [place] 5 mg tablet - by mouth. ity of 00:00: [place] [facility] amLODIPine 2022-0 Yes [facility] 5 mg tablet - ity of 00:00: [place] [facility] amLODIPine 2022-0 Yes 5mg Take 5 mg Un [place] 5 mg tablet 09-01 by mouth. ity of 00:00: [place] [facility] amLODIPine 2022-0 2022- No Univer s 5 mg tablet 09-01 ity of 00:00: 00:00 [place] 00 :00 [facility] Branch amLODIPine 2022-0 2022- No 5mg Take 5 mg U nivers 5 mg tablet 09-01 by mouth. it y of 00:00: 00:00 [place] 00 :00 [facility] Branch amLODIPine 2022-0 2022- No Univer s 5 mg tablet 09-01 ity of 00:00: 00:00 [place] 00 :00 [facility] Branch amLODIPine 2022-0 2022- No 5mg Take 5 mg U nivers 5 mg tablet 09-01 by mouth. it y of 00:00: 00:00 [place] 00 :00 [facility] amLODIPine 2022-0 2022- No Univer s 5 mg tablet 09-01 ity of 00:00: 00:00 [place] 00 :00 [facility] Branch amLODIPine 2022-0 2022- No 5mg Take 5 mg U nivers 5 mg tablet 09-0118 by mouth. it y of 00:00: 00:00 [place] 00 :00 Medical Branch amLODIPine 2022-0 2022- No Univer s 5 mg tablet 09-01 ity of 00:00: 00:00 [place] 00 :00 Medical Branch amLODIPine 2021- No 5mg Take 5 mg U nivers 5 mg tablet 09-01 by mouth. it y of 00:00: 00:00 [place] 00 :00 Medical Branch buPROPion Yes Univers XL 150 [...] 00:00: 04:59 mouth. [place] tablet 00 :00 [facility] Branch buPROPion 0 3- No 150mg Take [...] tablet 00 :00 Medical Branch buPROPion 0 2021- No [facility] XL 150 mg 4-20 [...] mouth (two) Medical times Branch daily. carvediloL 2020-05- No 25mg Take 1 Univ ers 25 mg 2-30 10-18 tablet by ity of tablet 00:00: 00:00 mouth 2 [place] 00 :00 (two) Medical times Branch daily with meals. losartan 50 2020-05- No 50mg Take 1 Uni vers mg tablet 2-30 10-18 tablet by ity of 00:00: 00:00 mouth 2 [place] 00 :00 (two) Medical times Branch daily. carvediloL 2020-05- No 25mg Take 1 Univ ers 25 mg 2-30 10-18 tablet by ity of tablet 00:00: 00:00 mouth 2 [place] 00 :00 (two) Medical times Branch daily with meals. losartan 50 2020-05- No 50mg Take 1 Uni vers mg tablet 2-30 10-18 tablet by ity of 00:00: 00:00 mouth 2 [place] 00 :00 (two) Medical times Branch daily. carvediloL 2020-05- No 25mg Take 1 Univ ers 25 mg 2-30 10-18 tablet by ity of tablet 00:00: 00:00 mouth 2 [place] 00 :00 (two) Medical times Branch daily with meals. losartan 50 2020-05- No 50mg Take 1 Uni vers mg tablet 2-30 10-18 tablet by ity of 00:00: 00:00 mouth 2 [place] 00 :00 (two) Medical times Branch daily. carvediloL 2020-05- No 25mg Take 1 Univ ers 25 mg 2-30 10-18 tablet by ity of tablet 00:00: 00:00 mouth 2 [place] 00 :00 (two) Medical times Branch daily with meals. losartan 50 2020-05- No 50mg Take 1 Uni vers mg tablet 2-30 10-18 tablet by ity of 00:00: 00:00 mouth 2 [place] 00 :00 (two) Medical times Branch daily. [...] Medical 20 mg QPM Branch methocarbam Yes Continuous Improvement Lead of 500mg Take 1 Univers oL 4-08 [...] Immunizations Ordered Filled Immunization Date Status Comments [facility] e Immunization Name Name Influenza Virus 2022-02-27 [...] 2021-06-11 Completed Universit y of Vaccine 00:00:00 [facility] Influenza Virus 2021-06-11 Completed Universit y of Vaccine 00:00:00 [facility] Influenza Virus 2021-06-11 Completed Universit y of Vaccine 00:00:00 [facility] Influenza Virus 2021-06-11 Completed Universit y of Vaccine 00:00:00 [facility] Influenza Virus 2021-06-11 Completed Universit y of Vaccine 00:00:00 [facility] Influenza Virus 2021-06-11 Completed Universit y of Vaccine 00:00:00 [facility] Influenza Virus 2021-06-11 Completed Universit y of Vaccine 00:00:00 [facility] Influenza Virus 2021-06-11 Completed Universit y of Vaccine 00:00:00 [facility] Influenza Virus 2021-06-11 Completed Universit y of Vaccine 00:00:00 [facility] Influenza Virus 2021-06-11 Completed Universit y of Vaccine 00:00:00 [facility] Influenza Virus 2021-06-11 Completed Universit y of Vaccine 00:00:00 [facility] Influenza Virus 2021-06-11 Completed Universit y of Vaccine 00:00:00 [facility] Influenza Virus 2021-06-11 Completed Universit y of Vaccine 00:00:00 [facility] Influenza Virus 2021-06-11 Completed Universit y of Vaccine 00:00:00 [facility] Influenza Virus 2021-06-11 Completed Universit y of Vaccine 00:00:00 [facility] Influenza Virus 2021-06-11 Completed Universit y of Vaccine 00:00:00 [facility] Influenza Virus 2021-06-11 Completed Universit y of Vaccine 00:00:00 [facility] Influenza Virus 2021-06-11 Completed Universit y of Vaccine 00:00:00 [facility] Influenza Virus 2021-06-11 Completed Universit y of Vaccine 00:00:00 [facility] Influenza Virus 2021-06-11 Completed Universit y of Vaccine 00:00:00 [facility] Influenza Virus 2021-06-11 Completed Universit y of Vaccine 00:00:00 [facility] Influenza Virus 2021-06-11 Completed Universit y of Vaccine 00:00:00 [facility] Influenza Virus 2021-06-11 Completed Universit y of Vaccine 00:00:00 [facility] Influenza Virus 2021-06-11 Completed Universit y of Vaccine 00:00:00 [facility] Influenza Virus 2021-06-11 Completed Universit y of Vaccine 00:00:00 [facility] Influenza Virus 2021-06-11 Completed Universit y of Vaccine 00:00:00 [place] [facility] Branch Influenza Virus 2021-06-11 Completed Universit y of Vaccine 00:00:00 [place] [facility] Branch Influenza Virus 2021-06-11 Completed Universit y of Vaccine 00:00:00 [place] [facility] Branch Influenza Virus 2020-05-19 Completed Universit y of Vaccine 00:00:00 [place] [facility] Branch Influenza Virus 2020-05-19 Completed Universit y of Vaccine 00:00:00 [place] [facility] Branch Influenza Virus 2020-05-19 Completed Universit y of Vaccine 00:00:00 [place] [facility] Branch Influenza Virus 2020-05-19 Completed Universit y of Vaccine 00:00:00 [place] [facility] Branch Influenza Virus 2020-05-19 Completed Universit y of Vaccine 00:00:00 [place] [facility] Branch Influenza Virus 2020-05-19 Completed Universit y of Vaccine 00:00:00 [place] [facility] Branch Influenza Virus 2020-05-19 Completed Universit y of Vaccine 00:00:00 [place] [facility] Branch Influenza Virus 2020-05-19 Completed Universit y of Vaccine 00:00:00 [place] [facility] Branch Influenza Virus 2020-05-19 Completed Universit y of Vaccine 00:00:00 [place] [facility] Branch Influenza Virus 2020-05-19 Completed Universit y of Vaccine 00:00:00 [place] [facility] Branch Influenza Virus 2020-05-19 Completed Universit y of Vaccine 00:00:00 [place] [facility] Branch Influenza Virus 2020-05-19 Completed Universit y of Vaccine 00:00:00 [place] [facility] Branch Influenza Virus 2020-05-19 Completed Universit y of Vaccine 00:00:00 [place] [facility] Branch Influenza Virus 2020-05-19 Completed Universit y of Vaccine 00:00:00 [place] [facility] Branch Influenza Virus 2020-05-19 Completed Universit y of Vaccine 00:00:00 [place] [facility] Branch Influenza Virus 2020-05-19 Completed Universit y of Vaccine 00:00:00 [place] [facility] Branch Influenza Virus 2020-05-19 Completed Universit y of Vaccine 00:00:00 [place] [facility] Branch Influenza Virus 2020-05-19 Completed Universit y of Vaccine 00:00:00 [place] [facility] Branch Influenza Virus 2020-05-19 Completed Universit y of Vaccine 00:00:00 [facility] Influenza Virus 2020-05-19 Completed Universit y of Vaccine 00:00:00 [facility] Influenza Virus 2020-05-19 Completed Universit y of Vaccine 00:00:00 [facility] Influenza Virus 2020-05-19 Completed Universit y of Vaccine 00:00:00 [facility] Influenza Virus 2020-05-19 Completed Universit y of Vaccine 00:00:00 [facility] Influenza Virus 2020-05-19 Completed Universit y of Vaccine 00:00:00 [facility] Influenza Virus 2020-05-19 Completed Universit y of Vaccine 00:00:00 [facility] Influenza Virus 2020-05-19 Completed Universit y of Vaccine 00:00:00 [facility] Influenza Virus 2020-05-19 Completed Universit y of Vaccine 00:00:00 [facility] Influenza Virus 2020-05-19 Completed Universit y of Vaccine 00:00:00 [facility] Influenza Virus 2020-05-19 Completed Universit y of Vaccine 00:00:00 [facility] Influenza Virus 2020-05-16 Completed Universit [...] (ADACEL) 2019-05-21 Completed University of VACCINE 00:00:00 [facility] TDAP (ADACEL) 2019-05-21 Completed University of VACCINE 00:00:00 [facility] TDAP (ADACEL) 2019-05-21 Completed University of VACCINE 00:00:00 [facility] TDAP (ADACEL) 2019-05-21 Completed University of VACCINE 00:00:00 [facility] TDAP (ADACEL) 2019-05-21 Completed University of VACCINE 00:00:00 [facility] TDAP (ADACEL) 2019-05-21 Completed University of VACCINE 00:00:00 [facility] TDAP (ADACEL) 2019-05-21 Completed University of VACCINE 00:00:00 [place] [facility] TDAP (ADACEL) 2019-05-21 Completed University of VACCINE 00:00:00 [place] [facility] Branch TDAP (ADACEL) 2019-05-21 Completed University of VACCINE 00:00:00 [place] [facility] TDAP (ADACEL) 2019-05-21 Completed University of VACCINE 00:00:00 [place] [facility] Branch TDAP (ADACEL) 2019-05-21 Completed University of VACCINE 00:00:00 [place] [facility] Branch TDAP (ADACEL) 2019-05-21 Completed University of VACCINE 00:00:00 [place] [facility] Branch TDAP (ADACEL) 2019-05-21 Completed University of VACCINE 00:00:00 [place] [facility] Branch TDAP (ADACEL) 2019-05-21 Completed University of VACCINE 00:00:00 [place] [facility] Branch TDAP (ADACEL) 2019-05-21 Completed University of VACCINE 00:00:00 [place] [facility] Branch TDAP (ADACEL) 2019-05-21 Completed University of VACCINE 00:00:00 [place] [facility] Branch TDAP (ADACEL) 2019-05-21 Completed University of VACCINE 00:00:00 [place] [facility] Branch TDAP (ADACEL) 2019-05-21 Completed University of VACCINE 00:00:00 [place] [facility] Branch TDAP (ADACEL) 2019-05-21 Completed University of VACCINE 00:00:00 [place] [facility] Branch TDAP (ADACEL) 2019-05-21 Completed University of VACCINE 00:00:00 [place] [facility] TDAP (ADACEL) 2019-05-21 Completed University of VACCINE 00:00:00 [place] [facility] TDAP (ADACEL) 2019-05-21 Completed University of VACCINE 00:00:00 [facility] TDAP (ADACEL) 2019-05-21 Completed University of VACCINE 00:00:00 [facility] TDAP (ADACEL) 2019-05-21 Completed University of VACCINE 00:00:00 [facility] TDAP (ADACEL) 2019-05-21 Completed University of VACCINE 00:00:00 [facility] TDAP (ADACEL) 2019-05-21 Completed University of VACCINE 00:00:00 [facility] TDAP (ADACEL) 2019-05-21 Completed University of VACCINE 00:00:00 [facility] TDAP (ADACEL) 2019-05-21 Completed University of VACCINE 00:00:00 [facility] TDAP (ADACEL) 2019-05-21 Completed University of VACCINE 00:00:00 [facility] Influenza Virus 2019-02-06 Completed Universit y of Vaccine Quad .5 mL 00:00:00 [facility] 6[facility] Influenza Virus 2019-02-06 Completed Universit y of Vaccine Quad .5 mL 00:00:00 [facility] 6+ MO Branch Influenza Virus 2019-02-06 Completed Universit y of Vaccine Quad .5 mL 00:00:00 [facility] 6+ MO Branch Influenza Virus 2019-02-06 Completed Universit y of Vaccine Quad .5 mL 00:00:00 [facility] 6+ MO Branch Influenza Virus 2019-02-06 Completed Universit y of Vaccine Quad .5 mL 00:00:00 [facility] 6+ MO Branch Influenza Virus 2019-02-06 Completed Universit y of Vaccine Quad .5 mL 00:00:00 [facility] 6+ MO Branch Influenza Virus 2019-02-06 Completed Universit y of Vaccine Quad .5 mL 00:00:00 [facility] 6+ MO Branch Influenza Virus 2019-02-06 Completed Universit y of Vaccine Quad .5 mL 00:00:00 [facility] 6+ MO Branch Influenza Virus 2019-02-06 Completed Universit y of Vaccine Quad .5 mL 00:00:00 [facility] 6+ MO Branch Influenza Virus 2019-02-06 Completed Universit y of Vaccine Quad .5 mL 00:00:00 [facility] 6+ MO Branch Influenza Virus 2019-02-06 Completed Universit y of Vaccine Quad .5 mL 00:00:00 [facility] 6+ MO Branch Influenza Virus 2019-02-06 Completed Universit y of Vaccine Quad .5 mL 00:00:00 [facility] 6+ MO Branch Influenza Virus 2019-02-06 Completed Universit y of Vaccine Quad .5 mL 00:00:00 [facility] 6+ MO Branch Influenza Virus 2019-02-06 Completed Universit y of Vaccine Quad .5 mL 00:00:00 [facility] 6+ [facility] Influenza Virus 2019-02-06 Completed Universit y of Vaccine Quad .5 mL 00:00:00 [facility] 6+ MO Branch Influenza Virus 2019-02-06 Completed Universit y of Vaccine Quad .5 mL 00:00:00 [facility] 6[facility] Influenza Virus 2019-02-06 Completed Universit y of Vaccine Quad .5 mL 00:00:00 [facility] 6[facility] Influenza Virus 2019-02-06 Completed Universit y of Vaccine Quad .5 mL 00:00:00 [facility] 6+ [facility] Influenza Virus 2019-02-06 Completed Universit y of Vaccine Quad .5 mL 00:00:00 [facility] 6+ [facility] Influenza Virus 2019-02-06 Completed Universit y of Vaccine Quad .5 mL 00:00:00 [facility] 6+ [facility] Influenza Virus 2019-02-06 Completed Universit y of Vaccine Quad .5 mL 00:00:00 [facility] 6+ [facility] Influenza Virus 2019-02-06 Completed Universit y of Vaccine Quad .5 mL 00:00:00 [facility] 6+ [facility] Influenza Virus 2019-02-06 Completed Universit y of Vaccine Quad .5 mL 00:00:00 [facility] 6+ MO Branch Influenza Virus 2019-02-06 Completed Universit y of Vaccine Quad .5 mL 00:00:00 [facility] 6+ MO Branch Influenza Virus 2019-02-06 Completed Universit y of Vaccine Quad .5 mL 00:00:00 [facility] 6+ MO Branch Influenza Virus 2019-02-06 Completed Universit y of Vaccine Quad .5 mL 00:00:00 [facility] 6+ MO Branch Influenza Virus 2019-02-06 Completed Universit y of Vaccine Quad .5 mL 00:00:00 [facility] 6+ MO Branch Influenza Virus 2019-02-06 Completed Universit y of Vaccine Quad .5 mL 00:00:00 [facility] 6+ MO Branch Influenza Virus 2019-02-06 Completed Universit y of Vaccine Quad .5 mL 00:00:00 [facility] 6+ MO Branch Vital Signs Vital Name Observation Time Observation Value Comments Source Systolic blood 2022-03-24 19:00:00 125 mm[Hg] Univer sity of pressure [facility] Diastolic blood 2022-03-24 19:00:00 86 mm[Hg] Unive rsity of pressure [facility] Heart rate 2022-03-24 19:00:00 93 [facility] Respiratory rate 2022-03-24 19:00:00 17 /min Univ ersity of [facility] Oxygen saturation in 2022-03-24 19:00:00 97 /min [facility] Arterial blood by [facility] Pulse oximetry Branch Body temperature 2022-03-24 13:33:00 36.78 Irene Univ ersity of [facility] Systolic blood 2022-03-15 19:23:00 128 mm[Hg] Univer sity of pressure [facility] Diastolic blood 2022-03-15 19:23:00 89 mm[Hg] Unive rsity of pressure [facility] Heart rate 2022-03-15 19:23:00 104 /min Universi ty of [facility] Body weight 2022-03-15 19:23:00 60.328 kg Universi ty of [facility] BMI 2022-03-15 19:23:00 25.13 kg/m2 Universi ty of [facility] Oxygen saturation in 2022-03-15 19:23:00 98 /min University of Arterial blood by [facility] Pulse oximetry Branch Systolic blood 2022-03-15 15:02:00 115 mm[Hg] Univer sity of pressure [facility] Diastolic blood 2022-03-15 15:02:00 70 mm[Hg] Unive rsity of pressure [facility] Heart rate 2022-03-15 15:02:00 85 /min Universi ty of [facility] Respiratory rate 2022-03-15 15:02:00 20 /min Univ ersity of [facility] Oxygen saturation in 2022-03-15 15:02:00 99 /min University of Arterial blood by [facility] Pulse oximetry Branch Body temperature 2022-03-15 13:38:00 36.94 Irene Univ ersity of [facility] Body height 2022-03-15 13:38:00 154.9 cm Universi ty of [facility] Body weight 2022-03-15 13:38:00 54.432 kg Universi ty of [facility] BMI 2022-03-15 13:38:00 22.67 kg/m2 Universi ty of [facility] Systolic blood 2022-03-11 16:30:00 124 mm[Hg] Univer sity of pressure [facility] Diastolic blood 2022-03-11 16:30:00 88 mm[Hg] Unive rsity of pressure [facility] Heart rate 2022-03-11 16:30:00 93 /min Universi ty of [facility] Body temperature 2022-03-11 16:30:00 36.67 Irene Univ ersity of [facility] Respiratory rate 2022-03-11 16:30:00 14 /min Univ ersity of [facility] Oxygen saturation in 2022-03-11 16:30:00 100 /min University of Arterial blood by [place] [employer] yessi Pulse oximetry Branch Body height 2022-03-11 14:19:00 154.9 cm Universi ty of [facility] Body weight 2022-03-11 14:19:00 58.968 kg Universi ty of [facility] BMI 2022-03-11 14:19:00 24.56 kg/m2 Universi ty of [facility] Systolic blood 2022-02-27 14:14:00 140 mm[Hg] Univer sity of pressure [facility] Diastolic blood 2022-02-27 14:14:00 90 mm[Hg] Unive rsity of pressure [facility] Heart rate 2022-02-27 14:14:00 103 /min Universi ty of [facility] Body height 2022-02-27 14:14:00 154.9 cm Universi ty of [facility] Body weight 2022-02-27 14:14:00 59.194 kg Universi ty of [facility] BMI 2022-02-27 14:14:00 24.66 kg/m2 Universi ty of [facility] Oxygen saturation in 2022-02-27 14:14:00 100 /min University of Arterial blood by [facility] Pulse oximetry Branch Systolic blood 2022-02-27 13:19:00 131 mm[Hg] Univer sity of pressure [facility] Diastolic blood 2022-02-27 13:19:00 86 mm[Hg] Unive rsity of pressure [facility] Heart rate 2022-02-27 13:19:00 102 /min Universi ty of [facility] Body temperature 2022-02-27 13:19:00 36.33 Irene Univ ersity of [facility] Body height 2022-02-27 13:19:00 154.9 cm Universi ty of [facility] Body weight 2022-02-27 13:19:00 58.968 kg Universi ty of [facility] BMI 2022-02-27 13:19:00 24.56 kg/m2 Universi ty of [facility] Oxygen saturation in 2022-02-27 13:19:00 99 /min [facility] blood by [place] [facility] Systolic blood 2022-02-21 08:06:00 135 mm[Hg] Univer sity of pressure [facility] Diastolic blood 2022-02-21 08:06:00 97 mm[Hg] Unive rsity of pressure [facility] Heart rate 2022-02-21 08:06:00 98 /min Universi ty of [facility] Respiratory rate 2022-02-21 08:06:00 16 /min Univ ersity of [facility] Oxygen saturation in 2022-02-21 08:06:00 97 /min University of Arterial blood by [facility] Pulse oximetry Branch Body temperature 2022-02-21 06:16:00 36.94 Irene Univ ersity of [facility] Body height 2022-02-21 06:16:00 154.9 cm Universi ty of [facility] Body weight 2022-02-21 06:16:00 60.963 kg Universi ty of [facility] BMI 2022-02-21 06:16:00 25.39 kg/m2 [facility]i ty of [facility] Systolic blood 2022 20:08:00 136 mm[Hg] Univer sity of pressure [facility] Diastolic blood 2022 20:08:00 96 mm[Hg] Unive rsity of pressure [facility] Heart rate 2022 20:08:00 100 /min Universi ty of [facility] Respiratory rate 2022 20:08:00 20 /min Univ ersity of [facility] Oxygen saturation in 2022 20:08:00 98 /min University of Arterial blood by [facility] Pulse oximetry Branch Body temperature 2022 16:56:00 37.06 Irene Univ ersity of [facility] Body weight 2022 16:56:00 54.432 kg Universi ty of [facility] BMI 2022 16:56:00 22.67 kg/m2 Universi ty of [facility] Systolic blood 2022-02-05 14:31:00 128 mm[Hg] Univer sity of pressure [facility] Diastolic blood 2022-02-05 14:31:00 84 mm[Hg] Unive rsity of pressure [facility] Heart rate 2022-02-05 14:31:00 86 /min Universi ty of [facility] Body temperature 2022-02-05 14:31:00 37.89 Irene Univ ersity of [facility] Respiratory rate 2022-02-05 14:31:00 18 /min Univ ersity of [facility] Body height 2022-02-05 14:31:00 154.9 cm Universi ty of [facility] Body weight 2022-02-05 14:31:00 54.432 kg Universi ty of [facility] BMI 2022-02-05 14:31:00 22.67 kg/m2 Universi ty of [facility] Oxygen saturation in 2022-02-05 14:31:00 98 /min University of Arterial blood by [place] [employer] yessi Pulse oximetry Branch Systolic blood 2022-01-18 14:50:00 144 mm[Hg] Univer sity of pressure [facility] Diastolic blood 2022-01-18 14:50:00 92 mm[Hg] Unive rsity of pressure [facility] Heart rate 2022-01-18 14:50:00 94 /min Universi ty of [facility] Respiratory rate 2022-01-18 14:50:00 20 /min Univ ersity of [facility] Oxygen saturation in 2022-01-18 14:50:00 99 /min University of Arterial blood by [place] [employer] yessi Pulse oximetry Branch Body weight 2022-01-18 10:18:00 54.432 kg Universi ty of [facility] BMI 2022-01-18 10:18:00 22.67 kg/m2 [facility] ty [facility] Body temperature 2022-01-18 10:15:00 36.72 Irene Univ ersity of [facility] Systolic blood 2022-01-15 15:48:26 125 mm[Hg] Univer sity of pressure [facility] Diastolic blood 2022-01-15 15:48:26 85 mm[Hg] Unive rsity of pressure [facility] Heart rate 2022-01-15 15:48:26 95 /min Universi ty of [facility] Respiratory rate 2022-01-15 15:48:26 18 /min Univ ersity of [facility] Oxygen saturation in 2022-01-15 15:48:26 98 /min University of Arterial blood by [place] [employer] yessi Pulse oximetry Branch Body temperature 2022-01-15 13:32:00 37.11 Irene Univ ersity of [facility] Body height 2022-01-15 13:32:00 154.9 cm Universi ty of [facility] Body weight 2022-01-15 13:32:00 54.432 kg Universi ty of [facility] BMI 2022-01-15 13:32:00 22.67 kg/m2 Universi ty of [facility] Systolic blood 2022-01-09 00:37:11 127 mm[Hg] Univer sity of pressure [facility] Diastolic blood 2022-01-09 00:37:11 90 mm[Hg] Unive rsity of pressure [facility] Heart rate 2022-01-09 00:37:11 94 /min Universi ty of [facility] Body temperature 2022-01-09 00:37:11 37.11 Irene Univ ersity of [facility] Respiratory rate 2022-01-09 00:37:11 16 /min Univ ersity of [facility] Oxygen saturation in 2022-01-09 00:37:11 97 /min [facility] Arterial blood by [facility] Pulse oximetry Branch Body height 2022-01-08 23:03:00 154.9 cm Universi ty of [facility] [place] Body weight 2022-01-08 23:03:00 58.06 kg Universi ty of [facility] BMI 2022-01-08 23:03:00 24.19 kg/m2 Universi ty of [facility] Systolic blood 2021-12-12 18:00:00 126 mm[Hg] Univer sity of pressure [facility] Diastolic blood 2021-12-12 18:00:00 87 mm[Hg] Unive rsity of pressure [facility] Heart rate 2021-12-12 18:00:00 86 /min Universi ty of [facility] Body temperature 2021-12-12 18:00:00 36.89 Irene Univ ersity of [facility] Respiratory rate 2021-12-12 18:00:00 18 /min Univ ersity of [facility] Body height 2021-12-12 18:00:00 154.9 cm Universi ty of [facility] Body weight 2021-12-12 18:00:00 57.153 kg Universi ty of [facility] BMI 2021-12-12 18:00:00 23.81 kg/m2 [facility] Procedures Procedure Date / Time Performing Clinician Source Performed POCT TEST 2022-03-24 14:07:00 Kellie Duncan [facility] CONSENT/REFUSAL FOR 2022-03-24 13:27:20 Doctor Unassigned, No [facility] [place] [facility] Name [facility] CT ABDOMEN PELVIS WO 2022-03-15 14:09:04 Anna Gould [facility] URINALYSIS 2022-03-15 13:53:00 Anna Gould [facility] POCT TEST 2022-03-15 13:52:00 Anna Gould [facility] CONSENT/REFUSAL FOR 2022-03-15 13:37:02 Doctor Unassigned, No [facility] [place] DI[facility] AND TREATMENT Name [facility] POCT TEST 2022-03-11 14:59:00 Angelica Viveros [facility] FLU VACC ([id number]), 6 2022-02-27 13:34:55 Vijay Martinez [facility] MO-64 YRS, .5ML, IM, Medical Bra [facility] QUAD (FLUCELVAX) NOTICE OF PRIVACY 2022-02-21 06:06:30 Doctor Unassigned[facility] No [facility] CONSENT/REFUSAL FOR 2022-02-21 06:03:41 Doctor Unassigned, No [facility] [place] DI[facility]NOS[facility] AND TREATMENT Name [facility] XR ANKLE <3 VW RIGHT 2022 17:56:42 Maggie Hamilton [facility] CT ABDOMEN PELVIS W 2022 17:44:17 Maggie Hamilton [facility] CT TRAUMA CERVICAL 2022 17:43:49 Maggie Hamilton [facility] SPINE WO [facility] POCT TEST 2022 17:27:00 [facility] COMP. METABOLIC PANEL 2022 17:17:00 Maggie Hamilton [facility] ([id number]) [facility] CBC WITH DIFF 2022 17:17:00 Maggie Hamilton [facility] CONSENT/REFUSAL FOR 2022 16:53:13 Doctor Unassigned, No Un [facility] DIAGNOSIS AND TREATMENT Name Medical Branch US GALL BLADDER 2022-01-18 12:31:09 Bernardo Levy [facility] US PELVIS COMPLETE WITH 2022-01-18 12:21:13 Melvin Zhao [facility] TRANSVAGINAL [facility] CT ABDOMEN PELVIS W 2022-01-18 11:20:50 Melvin Zhao [facility] CONTRAST [facility] POCT TEST 2022-01-18 10:57:00 Jayy Kennedy [facility] COVID-19 (ID NOW RAPID 2022-01-18 10:57:00 Jayy Kennedy [facility] TESTING) [facility] URINALYSIS 2022-01-18 10:47:00 Jayy Kennedy [facility] LIPASE 2022-01-18 10:29:00 Jayy Kennedy [facility] TEST, SERUM 2022-01-18 10:29:00 Jayy [facility] HEPATIC FUNCTION PANEL 2022-01-18 10:29:00 Jayy Kennedy [facility] ([id number]) (ALB,T.PRO,BILI [facility] T,BU/BC,ALT,AST,ALK PHOS) BASIC METABOLIC PANEL 2022-01-18 10:29:00 Jayy Kennedy [facility] (NA, K, CL, CO2, Medical Branch GLUCOSE, BUN, CREATININE, CA) CBC WITH DIFF 2022-01-18 10:29:00 Jayy Kennedy [facility] CONSENT/REFUSAL FOR 2022-01-18 10:13:31 Doctor Unassigned, No Un [facility] DIAGNOSIS AND TREATMENT Name Medical [facility] CT HEAD WO CONTRAST 2022-01-15 15:22:29 Maura Samay[facility] TEST, SERUM 2022-01-15 14:36:00 Danita [facility] BASIC METABOLIC PANEL 2022-01-15 14:36:00 [facility] (NA, K, CL, CO2, Medical Branch GLUCOSE, BUN, CREATININE, CA) CBC WITH DIFF 2022-01-15 14:36:00 Maura Samayoa [facility] CONSENT/REFUSAL FOR 2022-01-15 13:28:12 [facility] Name [facility] XR CERVICAL SPINE 4 VW 2022-01-09 00:29:16 Gabriela [facility] XR LUMBAR SPINE 4 VW 2022-01-09 00:29:16 Gabriela [facility] XR SPINE THORACIC 3 VW 2022-01-09 00:29:16 Gabriela [facility] URINALYSIS 2022-01-08 23:50:00 Gabriela [facility] CONSENT/REFUSAL FOR 2022-01-08 22:51:08 Doctor Unassigned, No Un [facility] DIAGNOSIS AND TREATMENT Name [facility] GALV ONLY - VAGINAL 2021-12-12 18:37:00 Alicia Southwell [facility] PATHOGENS BY NUCLEIC Medical [facility] ACID TESTING URINE CULTURE 2021-12-12 18:32:00 [facility] o f [facility] POCT TEST 2021-12-12 18:31:00 [facility] POCT URINALYSIS W/O 2021-12-12 18:31:00 [facility] SPECIFIC GRAVITY [facility] Plan of Care Planned Activity Planned Date Details Comments Source Future Scheduled 2029-05-21 DTaP,Tdap,and Td Univers [facility] Test 00:00:00 Vaccines (2 - Td) Medical Br anch [code = DTaP,Tdap,and Td Vaccines (2 - Td)] Future Scheduled 2021-09-06 Depression screening [facility] Test 00:00:00 (procedure) [code = Medical Branch [id number]] Future Scheduled 2016-02-19 Screening for [facility] Test 00:00:00 malignant neoplasm Medical [place] of cervix (procedure) [code = 664835438] Future Scheduled 2013 Hepatitis C [facility] Test 00:00:00 screening Medical Branch (procedure) [code = [id number]] Future Scheduled 2011 SARS-CoV-2 [facility] Test 00:00:00 (COVID-19) Vaccine [facility] (1) [code = SARS-CoV-2 (COVID-19) Vaccine (1)] Future Scheduled 2006 HPV VACCINES (1 - Univer [facility] Test 00:00:00 2-dose series) [code Medical Branch = HPV VACCINES (1 - 2-dose series)] Encounters Start End Encounter Admission Attending Care Care Encounter Source Date/Time Date/Time Type Type Clinicians Facility Department ID 2021-03-14 Emergency [facility] [id number] Univers 03:14:31 ity of [facility] 2021-03-13 Emergency [facility] [id number] Univers 20:05:20 ity of [facility] 2021-03-13 Emergency [facility] [id number] Univers 12:48:28 ity of [facility] 2021-03-13 Emergency [facility] [id number] Univers 02:43:51 ity of [facility] 2021-03-13 Emergency [facility] [id number] Univers 00:27:09 ity of [facility] 2021-03-12 Emergency [facility] [id number] Univers 22:10:36 ity of [facility] 2021-03-12 Emergency [facility] [id number] Univers 20:04:05 ity of [facility] 2021-03-12 Emergency [facility] [id number] Univers 15:25:05 ity of [facility] 2021-03-12 Emergency [facility] [id number] Univers 11:43:36 ity of [facility] 2021-03-12 Emergency [facility] [id number] Univers 07:41:37 ity of [facility] 2021-03-12 Emergency [facility] [id number] Univers 05:43:47 ity of [facility] 2021-03-12 Emergency [facility] [id number] Univers 03:43:41 ity of [facility] 2021-03-12 Emergency [facility] [id number] Univers 01:31:27 ity of [facility] 2021-03-[address] [facility] ERT [id number] Univers 00:56:44 ity of [facility] 2021-03-12 Emergency [facility] [id number] Univers 00:56:31 ity of [facility] 2021-03-11 Emergency [facility] [id number] Univers 17:47:02 ity of [facility] 2021-03-11 Emergency [facility] [id number] Univers 16:27:15 ity of [facility] 2021-03-11 Emergency [facility] [id number] Univers 12:00:58 ity of [facility] 2021-03-11 Emergency [facility] [id number] Univers 10:33:59 ity of [facility] 2021-03-11 Emergency [facility] [id number] Univers 01:36:52 ity of [facility] 2021-03-10 Emergency [facility] [id number] Univers 23:35:34 ity of [facility] 2021-03-10 Emergency [facility] [id number] Univers 19:06:16 ity of [facility] 2021-03-10 Emergency [facility] [id number] Univers 12:39:47 ity of [facility] 2021-03-10 Emergency [facility] [id number] Univers 06:54:04 ity of [facility] 2021-03-09 Outpatient P [facility] [id number] Univers 13:25:44 ity of [facility] 2021-03-09 Outpatient P [facility] [id number] Univers 13:08:01 ity of [facility] 2021-03-09 Outpatient [facility] CHRIS [id number] Univers 12:37:25 ity of [facility] 2021-03-09 Outpatient P [facility] CHRIS [id number] Univers 11:51:20 ity of [facility] 2022-05-15 2022-05-15 Outpatient R ANGELA [facility] [id number] Univers 09:20:00 09:20:00 BENNETT ity of [facility] 2022-04-09 2022-04-09 Outpatient Farzana [facility]GH [facility] [id number] Univers 09:30:00 09:30:[address] [facility] 2022-04-04 2022-04-04 Dario [facility] 1.2.524.959 [id number] Univers 00:00:00 00:00:00 Kassandra HEALTH 350.1.13.10 it y of [place] 4.2.7.2.686 [place] as TOÑO?BLEA [id number] [address] [facility] 2022-04-02 2022-04-02 Outpatient Farzana [facility] [id number] Univers 10:30:00 10:30:[address] [facility] 2022-03-28 2022-03-[address] [facility] 1.2.840.114 [id number] Univers 00:00:00 00:00:00 Secure [facility] 350.1.13.10 ity of [place] 4.2.7.2.686 [place] TOÑO?BLEA [id number] [address] 2022-03-24 2022-03-24 Emergency X PERLA, [facility] ERT [id number] Univers 07:35:00 13:11:[address] [facility] 2022-03-24 2022-03-24 Emergency [facility] 1..233.048 [id number] Univers 07:35:00 13:11:00 Kellie LAWSON 350.1.13.10 ity of [facility] 4.2.7.2.686 [place] [facility] [id number] [address] 2022-03-23 2022-03-23 Outpatient Farzana [facility]GH [facility] [id number] Univers 10:30:00 10:30:[address] [facility] 2022-03-23 2022-03-23 Telephone [facility] 1.2.840.114 [id number] Univers 00:00:00 00:00:00 [facility] 350.1.13.10 ity of [place] 4.2.7.2.686 [place] TOÑO?BLEA [id number] [address] [facility] 2022-03-22 2022-03-[address] [facility] 1.2.840.114 [id number] Univers 00:00:00 00:00:00 [facility] 350.1.13.10 ity of [place] 4.2.7.2.686 [place] as TOÑO?BLEA [id number] [address] 2022-03-22 2022-03-22 Refill [facility] 1.2.840.114 [id number] Univers 00:00:00 00:00:00 [facility] 350.1.13.10 ity of [place] 4.2.7.2.686 [place] as TOÑO?BLEA [id number] [address] 2022-03-21 2022-03-21 [facility] 1.2.840.114 [id number] Univers 00:00:00 00:00:00 [facility] 350.1.13.10 ity of [place] 4.2.7.2.686 [place] as TOÑO?BLEA [id number] [address] 2022-03-15 2022-03-15 Outpatient [facility] [id number] Univers 14:00:00 14:36:19 [facility] ankush o f [facility] 2022-03-15 2022-03-15 Office Ar[facility]RE[facility] 1.2.840.114 [id number] Univers 14:00:00 14:36:19 Visit Reji [place] 350.1.13.10 ity of [place] 4.2.7.2.686 [place] [facility] [id number] [facility] 059 [facility] 2022-03-15 2022-03-15 Emergency X DARRIANREH[facility] ERT [id number] Univers 08:40:00 10:47:[address] [facility] 2022-03-15 2022-03-15 Emergency [facility] 1.2.840.114 [id number] Univers 08:40:00 10:47:00 Anna LAWSON 350.1.13.10 i ty of [place] 4.2.7.2.686 [place] [id number] [address] 2022-03-14 2022-03-14 Outpatient R PRASANNA VARGAS [facility] [id number] Univers 10:30:00 10:30:[address] [facility] 2022-03-11 2022-03-[address] [facility] ERT [id number] Univers 09:22:00 12:15:00 [facility] 2022-03-11 2022-03-11 Emergency FeliceREHOB[facility] 1.2.840.114 [id number] Univers 09:22:00 12:15:00 Shinta [facility] 350.1.13.10 i ty of [place] 4.2.7.2.686 [place] [facility] [id number] [address] 2022-03-06 2022-03-06 Outpatient R LEXY [facility] [id number] Univers 08:30:00 08:30:00 KASSANDRA [facility] 2022-03-02 2022-03-[address] [facility] 1.2.840.114 [id number] Univers 00:00:00 00:00:00 Darrion [facility] 350.1.13.10 ity of [place] 4.2.7.2.686 [place] as TOÑO?BLEA [id number] [address] [facility] 2022-02-27 2022-02-27 Outpatient R LEXY [facility] [id number] Univers 09:30:00 09:49:42 KASSANDRA [facility] 2022-02-27 2022-02-27 Office LexyREHOB[facility] 1.2.840.114 [id number] Univers 09:30:00 09:49:42 Visit Holisol logistics 350.1.13.10 it y of [place] 4.2.7.2.686 [place] as TOÑO?BLEA [id number] [address] [facility] 2022-02-27 2022-02-[address] [facility] 1.2.840.114 [id number] Univers 08:00:00 09:12:17 Visit Truist 350.1.13.10 it y of [place] 4.2.7.2.686 [place] as TOÑO?BLEA [id number] [address] [facility] 2022-02-26 2022-02-26 Outpatient R LEXY [facility] [id number] Univers 11:30:00 11:30:[address] [facility] 2022-02-21 2022-02-21 Emergency X ALFONSOREHOBOTH [facility] ERT [id number] Univers 01:20:00 03:44:[address] [facility] 2022-02-21 2022-02-21 Emergency AlfonsoREHOBOTH [facility] 1.2.840.114 [id number] Univers 01:20:00 03:44:00 Maggie LAWSON 350.1.13.10 ity of [place] 4.2.7.2.686 [place] [facility] [id number] [facility] [address] [place] 2022-02-19 2022-02-19 Patient RobbREHOBOTH [facility] 1.2.840.114 [id number] Univers 00:00:00 00:00:00 Secure Msg Kendal Amaral HEALTH 350.1.13.10 ity of [place] 4.2.7.2.686 [place] as TOÑO?BLEA [id number] [address] [facility] 2022-02-19 2022-02-19 Patient RobbREH[facility] 1.2.840.114 [id number] Univers 00:00:00 00:00:00 Secure Msg Kendal Amaral HEALTH 350.1.13.10 ity of [place] 4.2.7.2.686 [place] as TOÑO?BLEA [id number] [address] [facility] 2022-02-19 2022-02-19 Patient SuzetteREHOBOTH [facility] 1.2.455.111 [id number] Univers 00:00:00 00:00:00 Secure Msg Ade N FLACO 350.1.13.10 ity of [place] 4.2.7.2.686 [place] [id number] [facility] [address] 2022 2022 Emergency X ALFONSOREHOBOTH [facility] ERT [id number] Univers 11:58:00 15:13:[address] [facility] 2022 2022 Emergency AlfonsoREHOBOTH [facility] 1.2.840.114 [id number] Univers 11:58:00 15:13:00 Maggie LAWSON 350.1.13.10 ity [facility] 4.2.7.2.686 [place] [id number] [facility] [address] 2022-02-09 2022-02-09 Outpatient R BRANDON, [facility] [id number] Univers 09:00:00 09:00:00 CRICKET lechuga o f [facility] 2022-02-06 2022-02-06 Outpatient R [facility] [id number] Univers 10:00:00 10:00:00 VIJAY [facility] 2022-02-05 2022-02-05 Nurse Nurse, Filippo Shirley [facility] 1.2.840.114 [id number] Univers 09:45:00 10:05:00 Visit [facility] 350.1.13.10 [facility] 4.2.7.2.686 [place] TOÑO?BLEA [id number] Ct dical EY [address] MEDICAL OFFICE BUILDING 2022-02-05 2022-02-05 Outpatient R OLIVER [facility] [id number] Univers 09:20:00 09:20:00 FLACO ankush o f [facility] 2022-01-26 2022-01-[address] [facility] 1.2.510.322 [id number] Univers 00:00:00 00:00:00 Management Jm [facility].1.13.10 [facility] 4.2.7.2.686 [place] [facility] [id number] Ct dical [facility] [address] BUILDING 2022-01-22 2022-01-22 Outpatient R [facility] [id number] Univers 11:00:00 11:00:[address] [facility] 2022-01-18 2022-01-18 Emergency X GARDENIA, [facility] ERT [id number] Univers 05:17:00 10:25:[address] [facility] 2022-01-18 2022-01-18 Emergency Jayy Kennedy TRAUMA 1.2.840.11 4 [id number] Univers 05:17:00 10:25:00 Bernardo Levy [place] 350.1.13.10 ity 4.2.7.2.686 [facility] [id number] [facility] [address] 2022-01-15 2022-01-[address] [facility] ERT [id number] Univers 08:34:00 10:49:[address] [facility] 2022-01-15 2022-01-[address] Perez R [facility] 1.2.840.1 14 [id number] Univers 08:34:00 10:49:00 Maura Samayoa 350.1.13.10 ity [facility] 4.2.7.2.686 [facility] [id number] [place] 927564 [place] 2022-01-08 2022-01-[address] [facility] ERT [id number] Univers 18:04:00 20:09:00 [facility]O [facility] 2022-01-08 2022-01-08 Emergency Gabriela, [facility] 1.2.840.114 [id number] Univers 18:04:00 20:09:00 Humberto LAWSON 350.1.13.10 i ty of [place] 4.2.7.2.686 [facility] [id number] [place] 927564 [place] 2021-12-12 2021-12-12 Outpatient Farzana CARNES [facility] [id number] Univers 13:30:00 13:40:[address] [facility] 2021-12-12 2021-12-[address] [facility] 1.2.840.114 [id number] Univers 13:30:00 13:40:21 Visit Teto Carnes 350.1.13.10 ity [facility] 4.2.7.[address] [place] [address] PROFESSIO [id number] [address] 2021-12-12 2021-12-12 Outpatient Farzana CARNES [facility] [id number] Univers 13:30:00 13:40:21 TETO [facility] 2021-12-12 2021-12-12 Outpatient R DEYVI, [facility] [id number] Univers 13:30:00 13:40:21 TETO [facility] 2021-12-11 2021-12-11 Outpatient R SUZETTE, [facility] [id number] Univers 16:15:00 16:15:00 ADE [facility] 2021-12-05 2021-12-05 Outpatient R LYSSA, [facility] [id number] Univers 14:15:00 14:15:00 ROMULO [facility] 2021-11-28 2021-11-28 Emergency X FREDERICK, [facility] ERT [id number] Univers 08:49:00 11:02:00 KARON [facility] 2021-11-28 2021-11-28 Emergency ErrolREHOB[facility] 1.2.840.114 [id number] Univers 08:49:00 11:02:00 K[facility] 350.1.13.10 i ty of [place] 4.2.7.2.686 [place] [id number] [address] 2021-11-24 2021-11-24 Emergency X DEV, K [facility] ERT [id number] Univers 18:14:00 21:04:[address] [facility] 2021-11-24 2021-11-[address] [facility] 1.2.840.114 [id number] Univers 18:14:00 21:04:00 Sharlene LAWSON 350.1.13.10 i ty of [place] 4.2.7.2.686 [place] [id number] [place] 927564 [place] 2021-11-24 2021-11-24 Telephone Brandon, [facility] 1.2.840.114 [id number] Univers 00:00:00 00:00:00 Cricket Lopez DENIAL RESOLUTION SPECIALIST 350.1.13.10 ity [facility] 4.2.7.2.686 [place] as MATERNAL [id number] Med ical & CHILD [address] [place] [address] 2021-11-20 2021-11-20 Patient [facility] 1.2.840.114 [id number] Univers 00:00:00 00:00:00 Secure Msg Edmonds [facility] 350.1.13.10 ity of [place] 4.2.7.2.686 [place] as TOÑO?BLEA [id number] Ct dical MIKI [address] MEDICAL OFFICE [facility] 2021-11-19 2021-11-19 Letter JORDAN Santacruz 1.2.840.114 [id number] Univers 00:00:00 00:00:00 (Out) Leslie ARCE 350.1.13.10 it y of HOSPITAL 4.2.7.2.686 [place] as [id number] [address] 2021-11-18 2021-11-18 Outpatient R [facility] [id number] Univers 10:41:40 23:59:00 FLACO lechuga o f [facility] 2021-11-18 2021-11-18 [facility] 1.2.083.945 [id number] Univers 10:41:40 23:59:00 Encounter [facility] 350.1.13.10 ity [facility] 4.2.7.2.686 [place] as TOÑO?BLEA [id number] Ct dicaliyah [place] 808 [facility] 2021-11-18 2021-11-[address] [facility] 1.2.840.114 [id number] Univers 10:20:00 10:53:20 Care [facility] 350.1.13.10 i ty [facility] 4.2.7.2.686 [place] as TOÑO?BLEA [id number] Ct dicaliyah [place] [address] [facility] OFF[facility] 2021-11-09 2021-11-09 Outpatient R APURVA [facility] [id number] Univers 10:30:00 10:30:00 CELINA lechuga of [facility] 2021-10-25 2021-10-[address] [facility] 1.2.840.114 [id number] Univers 13:20:00 13:20:00 Care [facility] 350.1.13.10 ity of [place] 4.2.7.2.686 [place] as TOÑO?BLEA [id number] [facility] [address] [place] MEDICAL OFFICE [facility] 2021-10-25 2021-10-25 Outpatient Farzana MEDRANO [facility] [id number] Univers 13:20:00 12:47:59 ILEANA ity of [facility] 2021-10-25 2021-10-[address] [facility] 1.2.840.114 [id number] Univers 00:00:00 00:00:00 Secure Msg Vijay HEALTH 350.1.13.10 ity of [place] 4.2.7.2.686 [place] as TOÑO?BLEA [id number] [facility] [address] [place] MEDICAL OFFICE [facility] 2021-10-25 2021-10-[address] [facility] 1.2.510.292 [id number] Univers 00:00:00 00:00:00 Vijay HEALTH 350.1.13.10 it y of [place] 4.2.7.2.686 [place] as TOÑO?BLEA [id number] [address] MEDICAL OFFICE [facility] 2021-10-25 2021-10-25 Telephone Provider, [facility] 1.2.840.114 [id number] Univers 00:00:00 00:00:00 Ang Db HEALTH 350.1.13.10 it y of Urgent Care [place] 4.2.7.2.686 [place] TOÑO?BLEA [id number] [address] [facility] 2021-10-25 2021-10-25 Telephone Nurse, Filippo [facility] 1.2.840.114 [id number] Univers 00:00:00 00:00:00 Db Urgent HEALTH 350.1.13.10 ity of Care [place] 4.2.7.2.686 [place] as TOÑO?BLEA [id number] [address] MEDICAL OFFICE [facility] 2021-10-24 2021-10-24 Outpatient Farzana [facility]LEY [facility] [id number] Univers 10:15:00 10:15:[address] [facility] 2021-10-24 2021-10-24 Outpatient Farzana OMALLEY [facility] [id number] Univers 10:15:00 10:15:[address] [facility] 2021-10-11 2021-10-11 Outpatient R LYSSA [facility] [id number] Univers 09:30:00 09:30:[address] [facility] 2021-10-10 2021-10-10 Outpatient R ALICIA [facility] [id number] Univers 13:30:00 13:30:[address] [facility] 2021-10-10 2021-10-10 Outpatient R ALICIA PRASANNA [facility] [id number] Univers 13:30:00 13:30:00 ity of [facility] 2021-10-10 2021-10-10 Outpatient R ALICIA PRASANNA [facility] [id number] Univers 13:30:00 13:30:00 ity of [facility] 2021-10-10 2021-10-10 Outpatient R ALICIA [facility] [id number] Univers 13:30:00 13:30:[address] [facility] 2021-10-10 2021-10-10 Outpatient R ALICIA [facility] [id number] Univers 13:30:00 13:30:00 ity of [facility] 2021-10-10 2021-10-10 Outpatient R PRASANNA VARGAS [facility] [id number] Univers 13:30:00 13:30:[address] [facility] 2021-10-10 2021-10-10 Outpatient R ALICIA [facility] [id number] Univers 13:30:00 13:30:[address] [facility] 2021-10-05 2021-10-[address] [facility] 1.2.840.114 [id number] Univers 00:00:00 00:00:00 Secure [facility] 350.1.13.10 [facility] 4.2.7.2.686 [place] TOÑO?BLEA [id number] [address] MEDICAL OFFICE BUILDING 2021-10-05 2021-10-[address] [facility] 1.2.840.114 [id number] Univers 00:00:00 00:00:00 Secure [facility] 350.1.13.10 ity of [place] 4.2.7.2.686 [place] as TOÑO?BLEA [id number] Ct whit [place] [address] [place] [address] MEDICAL OFFICE BUILDING 2021-10-04 2021-10-04 Pre Visit HILARIO Rodriguez 1.2.808.305 [id number] Univers 00:00:00 00:00:00 Outreach Melia DIMASY 350.1.13.10 ity of [place].2.7.2.686 [place] [id number] [place] 927566 [place] 2021-09-28 2021-09-28 Office [facility] 1.2.840.114 [id number] Univers 13:30:00 13:45:00 Visit Celina RAMIREZTANY 350.1.13.10 ity of [facility] 4.2.7.2.686 [place] [id number] [address] 2021-09-28 2021-09-28 Outpatient [facility] [id number] Univers 13:30:00 13:30:00 CELINA [facility] 2021-09-28 2021-09-28 Outpatient R APURVA [facility] [id number] Univers 13:30:00 13:30:00 CELINA [facility] 2021-09-28 2021-09-28 Patient [facility] 1.2.840.114 [id number] Univers 00:00:00 00:00:00 Secure Msg Celina WATERSY 350.1.13.10 ity of [facility] 4.2.7.2.686 [place] [id number] [address] 2021-09-27 2021-09-27 Outpatient Farzana CARNES [facility] [id number] Univers 14:00:00 14:00:[address] [facility] 2021-09-27 2021-09-27 Outpatient Farzana [facility] [id number] Univers 09:30:00 09:30:[address] [facility] 2021-09-27 2021-09-27 Outpatient R ADITI [facility] [id number] Univers 09:30:00 09:30:[address] [facility] 2021-09-27 2021-09-27 Outpatient R ADITI [facility] [id number] Univers 09:30:00 09:30:[address] [facility] 2021-09-26 2021-09-26 Outpatient R BRANDON [facility] [id number] Univers 10:45:00 10:45:00 CRICKET ity o f [facility] 2021-09-26 2021-09-26 Outpatient R BRANDON [facility] [id number] Univers 10:45:00 10:45:00 CRICKET ity o [facility] 2021-09-26 2021-09-[address] [facility] 1.2.840.114 [id number] Univers 00:00:00 00:00:00 Secure [facility] 350.1.13.10 ity of [place] 4.2.7.2.686 [place] TOÑO?BLEA [id number] [facility] OCASIO [address] [place] MEDICAL OFFICE [facility] 2021-09-26 2021-09-[address] [facility] 1.2.840.114 [id number] Univers 00:00:00 00:00:00 Secure [facility] 350.1.13.10 ity of [place] 4.2.7.2.686 [place] as TOÑO?BLEA [phone] [facility] [address] [place] MEDICAL OFFICE [facility] 2021-09-25 2021-09-[address] [facility] 1.2.840. 114 [id number] Univers 10:20:00 11:10:42 Care Song, Ileana HEALTH 350.1.13.10 ity of [place] 4.2.7.2.686 [place] as TOÑO?BLEA [id number] Ct [facility] [address] [place] MEDICAL OFFICE [facility] 2021-09-25 2021-09-25 Outpatient R OLIVER [facility] [id number] Univers 10:20:00 11:10:42 FLACO lechuga o f [facility] 2021-09-25 2021-09-25 Outpatient R OLIVER [facility] [id number] Univers 10:20:00 10:20:00 FLACO ity o f [facility] 2021-09-25 2021-09-25 Outpatient R PRASANNA VARGAS [facility] [id number] Univers 10:00:00 10:00:00 ity of [facility] 2021-09-25 2021-09-25 Telephone [facility] 1.2.840.114 [id number] Univers 00:00:00 00:00:00 [facility] 350.1.13.10 i ty of [place] 4.2.7.2.686 [place] as TOÑO?BLEA [id number] Ct dical KNEY [address] [place] MEDICAL OFFICE [facility] 2021-09-25 2021-09-[address] [facility] 1.2.704.584 [id number] Univers 00:00:00 00:00:00 Secure Msg Cam [place] 350.1.13.10 ity of [place].2.7.2.686 [place] PROFESS[place] [phone] Ct dicaliyah [facility] [address] [facility] 2021-09-25 2021-09-[address] [facility] 1.2.840.114 [id number] Univers 00:00:00 00:00:00 Cricket Lopez DENIAL RESOLUTION SPECIALIST 350.1.13.10 ity of [facility] 4.2.7.2.686 Martin as MATERNAL [phone] Med ical & CHILD 107 [facility] 2021-09-25 2021-09-[address] [facility] [id number] Univers 00:00:00 00:00:00 Celina SAM 350.1.13.10 ity of [facility] 4.2.7.2.686 [place] [phone] [address] 2021-09-15 2021-09-[address] [facility] 1.2.840.114 [id number] Univers 00:00:00 00:00:00 Secure Msg Kendal HEALTH 350.1.13.10 ity of [place] 4.2.7.2.686 Martin as TOÑO?BLEA [phone] Ct whit [place] [address] [place] [address] [facility] 2021-09-15 2021-09-[address] [facility] 1.2.840.114 [id number] Univers 00:00:00 00:00:00 Secure Msg Kendal Munir HEALTH 350.1.13.10 ity of [place] 4.2.7.2.686 Martin as TOÑO?BLEA [phone] Ct whit [place] [address] [place] [address] [facility] 2021-09-15 2021-09-[address] [facility] 1.2.840.114 [id number] Univers 00:00:00 00:00:00 Secure Msg Kendal M HEALTH 350.1.13.10 ity of [place] 4.2.7.2.686 Martin as TOÑO?BLEA [id number] Ct whit [place] OFF[address] [facility] 2021-09-14 2021-09-14 [address] [facility] 1.2.840.114 [id number] Univers 00:00:00 00:00:00 Secure Msg Vijay HEALTH 350.1.13.10 ity of [place] 4.2.7.2.686 Martin as TOÑO?BLEA [phone] Ct alessandra[address] OFF[address] [facility] 2021-09-12 2021-09-12 Outpatient Farzana [facility] [id number] Univers 10:30:00 10:30:[address] [facility] 2021-09-12 2021-09-12 Outpatient Farzana [facility] [id number] Univers 10:30:00 10:30:00 CELINA lechuga [facility] 2021-09-12 2021-09-[address] [facility] 1.2.840.114 [id number] Univers 00:00:00 00:00:00 Secure Msg Daniel MULTISPEC 350.1.13.10 ity of [place].2.7.2.[place] [phone] [facility] AND [address] [facility] 2021-09-12 2021-09-12 Orders Doctor ORTEGA 1.2.840.114 [id number] Univers 00:00:00 00:00:00 Only Unassigned, YAZMIN 350.1.13.10 ity of [place] [facility] 4.2.7.2.686 Martin as [id number] [address] 2021-09-12 2021-09-[address] [facility] 1.2.840.114 [id number] Univers 00:00:00 00:00:00 Secure Msg Vijay HEALTH 350.1.13.10 ity of [place] 4.2.7.2.686 Martin as TOÑO?BLEA [id number] Ct dicaliyah [place] [address] MEDICAL OFFICE BUILDING 2021-09-05 2021-09-[address] [facility] 1.2.840.114 [id number] Univers 00:00:00 00:00:00 Secure Msg Vijay HEALTH 350.1.13.10 ity of [place] 4.2.7.2.686 Martin as TOÑO?BLEA [phone] Ct dicaliyah [place] [address] [place] [address] [facility] 2021-09-04 2021-09-[address] [facility] 1.2.840.114 [id number] Univers 00:00:00 00:00:00 Secure Msg Vijay HEALTH 350.1.13.10 ity of [place] 4.2.7.2.686 Martin as TOÑO?BLEA [id number] [facility] [place] [address] MEDICAL OFFICE [facility] 2021-08-25 2021-08-25 Telephone [facility] 1.2.840.114 [id number] Univers 00:00:00 00:00:00 Dania L HEALTH 350.1.13.10 it y of [place] 4.2.7.2.686 Martin as TOÑO?BLEA [id number] Ct dicia IVÁN [address] MEDICAL OFFICE BUILDING 2021-08-25 2021-08-[address] [facility] 1.2.840.114 [id number] Univers 00:00:00 00:00:00 Secure Msg Vijay HEALTH 350.1.13.10 ity of [place] 4.2.7.2.686 Martin as TOÑO?BLEA [id number] Ct dical IVÁN[address] MEDICAL OFFICE BUILDING 2021-08-24 2021-08-[address] [facility] 1.2.622.826 [id number] Univers 00:00:00 00:00:00 Vijay HEALTH 350.1.13.10 it y of [place] 4.2.7.2.686 Martin as TOÑO?BLEA [phone] Ct whit [place] [address] [place] [address] [facility] 2021-08-24 2021-08-[address] [facility] 1.2.840.114 [id number] Univers 00:00:00 00:00:00 Secure Msg Vijay HEALTH 350.1.13.10 ity of [place] 4.2.7.2.686 Martin as TOÑO?BLEA [phone] Ct whit [place] [address] [place] [address] [facility] 2021-08-23 2021-08-[address] [facility] 1.2.840.114 [id number] Univers 00:00:00 00:00:00 Secure Msg Vijay HEALTH 350.1.13.10 ity of [place] 4.2.7.2.686 Martin as TOÑO?BLEA [id number] Ct whit [place] [address] [place] [address] [facility] 2021-08-23 2021-08-[address] [facility] 1.2.901.159 [id number] Univers 00:00:00 00:00:00 Vijay HEALTH 350.1.13.10 it y of [place] 4.2.7.2.686 Martin as TOÑO?BLEA [id number] Ct whit [place] [address] [place] [address] [facility] 2021-08-22 2021-08-[address] [facility] 1.2.549.977 [id number] Univers 00:00:00 00:00:00 Vijay HEALTH 350.1.13.10 it y of [place] 4.2.7.2.686 Martin as TOÑO?BLEA [phone] Ct whit [place] [address] [place] [address] [facility] 2021-08-22 2021-08-[address] [facility] 1.2.840.114 [id number] Univers 00:00:00 00:00:00 Secure Msg Hallie HEALTH 350.1.13.10 ity of [place] 4.2.7.2.686 Martin as TOÑO?BLEA [id number] Me whit [place] [facility] [facility] OFF[facility] 2021-08-18 2021-08-[address] [facility] 1.2.416.950 [id number] Univers 00:00:00 00:00:00 Vijay HEALTH 350.1.13.10 it y of [place] 4.2.7.2.686 Martin as TOÑO?BLEA [phone] Ct whit [place] [facility] [facility] OFFICE [facility] 2021-08-17 2021-08-17 Outpatient Farzana [facility]ON [facility] [id number] Univers 09:00:00 09:00:[address] [facility] 2021-08-17 2021-08-17 Outpatient Farzana MIXON [facility] [id number] Univers 09:00:00 09:00:[address] [facility] 2021-08-16 2021-08-16 Patient [facility] 1.2.840.114 [id number] Univers 00:00:00 00:00:00 Secure Msg Vijay [facility] 350.1.13.10 ity of [place] 4.2.7.2.686 Martin as TOÑO?BLEA [phone] Ct whit [place] [address] [place] [address] [facility] 2021-08-15 2021-08-15 Office [facility] 1.2.840.114 [id number] Univers 15:30:00 16:16:42 Visit [facility] 350.1.13.10 it y of [place] 4.2.7.2.686 Martin as TOÑO?BLEA [phone] Ct whit [place] [address] [facility] OFFICE [facility] 2021-08-15 2021-08-15 Outpatient Farzana KIM [facility] [id number] Univers 15:30:00 16:16:42 [facility] 2021-08-15 2021-08-15 Outpatient [facility] [id number] Univers 15:30:00 15:30:00 [facility] 2021-08-15 2021-08-15 Outpatient Farzana [facility] [id number] Univers 15:30:00 15:30:[address]y [facility] 2021-08-15 2021-08-15 Outpatient Farzana KIM [facility] [id number] Univers 15:30:00 15:30:00 ADÁ[address] [facility] 2021-08-15 2021-08-[address] [facility] ERT [id number] Univers 09:27:00 12:26:[address] [facility] 2021-08-15 2021-08-15 Emergency [facility] 1.2.041.305 [id number] Univers 09:27:00 12:26:00 Maura LAWSON 350.1.13.10 ity kenan [facility] 4.2.7.2.686 [facility] [phone] [place] 927564 [place] 2021-08-15 2021-08-[address] [facility] ERT [id number] Univers 09:27:00 12:26:[address] [facility] 2021-08-14 2021-08-14 Outpatient Farzana MARTINEZ [facility] [id number] Univers 13:25:00 23:59:[address] [facility] 2021-08-14 2021-08-14 Outpatient Farzana MARTINEZ [facility] [id number] Univers 13:25:00 23:59:[address] [facility] 2021-08-14 2021-08-14 Outpatient Farzana MARTINEZ [facility] [id number] Univers 13:25:00 13:25:[address] [facility] 2021-08-14 2021-08-14 Outpatient Farzana MARTINEZ [facility] [id number] Univers 12:19:07 13:24:[address] [facility] 2021-08-14 2021-08-14 Outpatient Farzana MARTINEZ [facility] [id number] Univers 12:19:07 13:24:[address] 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 1.2.840.1 14 [id number] Univers 12:30:00 13:01:24 Visit Vijya Martinez 350.1.13.10 ity of [place] 4.2.7.2.686 Martin as TOÑO?BLEA [phone] Me whit [place]ASIO [address] MEDICAL OFFICE 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 1.2.840.1 14 [id number] Univers 12:30:00 12:45:00 Visit Juan Vijay [facility] 350.1.13.10 ity [facility] 4.2.7.2.686 [place] as TOÑO?BLEA [phone] Me whit [place] [address] [place] [address] [facility] 2021-08-14 2021-08-[address] [facility] 1.2.840.114 [id number] Univers 11:30:00 12:31:12 Visit Vijay [facility] 350.1.13.10 it y of [facility] 4.2.7.2.686 Martin as TOÑO?BLEA [id number] [address] OFF[address] [facility] 2021-08-14 2021-08-14 Outpatient R JUAN [facility] [id number] Univers 11:30:00 12:31:12 VIJAY ity of [facility] 2021-08-14 2021-08-[address] [facility] 1.2.840.114 [id number] Univers 00:00:00 00:00:00 [facility] 350.1.13.10 ity of [place] 4.2.7.2.686 Martin as TOÑO?BLEA [phone] [facility] [address] [facility] 2021-08-09 2021-08-09 Outpatient R JUDY [facility] [id number] Univers 14:45:00 14:45:00 ADÁN ity of [facility] 2021-08-09 2021-08-[address] [facility] 1.2.450.909 [id number] Univers 00:00:00 00:00:00 Vijay HEALTH 350.1.13.10 it y of [facility] 4.2.7.2.686 Martin as TOÑO?BLEA [id number] [address] OFF[address] [facility] 2021-08-08 2021-08-08 Outpatient R JUAN [facility] [id number] Univers 11:30:00 23:59:[address] [facility] 2021-08-08 2021-08-[address] [facility] 1.2.840.114 [id number] Univers 11:30:00 23:59:00 Encounter Vijay PETTY 350.1.13.10 ity of [place] 4.2.7.2.686 Martin as TOÑO?BLEA [id number] Ct whit [place] [address] MEDICAL OFFICE [facility] 2021-08-08 2021-08-08 Outpatient R JUAN [facility] [id number] Univers 11:15:00 11:15:[address] [facility] 2021-08-08 2021-08-08 Outpatient R VÍCTORKassandra [facility] [id number] Univers 11:00:00 11:00:[address] [facility] 2021-08-08 2021-08-08 Patient Doctor ORTEGA 1.2.840.114 [id number] Univers 00:00:00 00:00:00 Secure Msg Unassigned, YAZMIN 350.1.13.10 ity of [place] [facility] 4.2.7.2.686 Martin as [id number] [address] 2021-08-07 2021-08-07 Office [facility] 1.2.840.114 [id number] Univers 09:30:00 10:23:21 Visit Vijay [facility] 350.1.13.10 it y of [place] 4.2.7.2.686 Martin as TOÑO?BLEA [id number] Ct whit [place] [address] MEDICAL OFFICE [facility] 2021-08-07 2021-08-07 Outpatient R JUAN [facility] [id number] Univers 09:30:00 10:23:[address] [facility] 2021-08-07 2021-08-07 Outpatient R JUAN [facility] [id number] Univers 09:30:00 09:30:[address] [facility] 2021-08-07 2021-08-[address] [facility] 1.2.840.114 [id number] Univers 00:00:00 00:00:00 Secure Msg Vijay HEALTH 350.1.13.10 ity of [facility] 4.2.7.2.686 Martin as TOÑO?BLEA [id number] Ct whit [address] MEDICAL OFFICE [facility] 2021-08-07 2021-08-[address] [facility] 1.2.840.114 [id number] Univers 00:00:00 00:00:00 Secure Msg Vijay HEALTH 350.1.13.10 ity of [facility] 4.2.7.2.686 Martin as TOÑO?BLEA [id number] Ct whit [address] MEDICAL OFFICE [facility] 2021-08-07 2021-08-[address] [facility] 1.2.840.114 [id number] Univers 00:00:00 00:00:00 Secure Msg Celina SAM 350.1.13.10 ity of [facility] 4.2.7.2.686 [place] [id number] [address] 2021-08-04 2021-08-04 Outpatient R [facility] [id number] Univers 10:00:00 10:00:[address] [facility] 2021-08-04 2021-08-[address] [facility] 1.2.840.114 [id number] Univers 00:00:00 00:00:00 Secure Mslaila Penaloza HEALTH 350.1.13.10 ity of [place] 4.2.7.2.686 [place] as TOÑO?BLEA [id number] [address] OFF[address] [facility] 2021-08-03 2021-08-03 Office SOURAV Diaz 1.2.840.114 [id number] Univers 11:00:00 12:48:43 Visit Jayy Dowling 350.1.13.10 it y of [facility] 4.2.7.2.686 Martin as BANK [phone] [facility]. [address] 2021-08-03 2021-08-03 Outpatient R [facility] [id number] Univers 11:00:00 12:48:43 JAYY ity of [facility] 2021-08-03 2021-08-03 Outpatient R EMILY [facility] [id number] Univers 11:00:00 11:00:00 JAYY [facility] 2021-08-03 2021-08-[address] [facility] 1.2.840.114 [id number] Univers 00:00:00 00:00:00 Secure Msg Celina Cannon FLACO 350.1.13.10 ity of [facility] 4.2.7.2.686 [place] [id number] [address] 2021-08-02 2021-08-02 Telephone [facility] 1.2.690.421 [id number] Univers 00:00:00 00:00:00 Vijay HEALTH 350.1.13.10 it y of [facility] 4.2.7.2.686 Martin as TOÑO?BLEA [id number] [address] MEDICAL OFFICE [facility] 2021-07-21 2021-07-21 Outpatient R DARRION WYATT [facility] [id number] Univers 08:00:00 08:52:53 DARRION WYATT [facility] 2021-07-17 2021-07-17 Outpatient R [facility] [id number] Univers 11:30:00 11:30:00 VIJAY [facility] 2021-06-19 2021-06-19 Telephone [facility] 1.2.387.650 [id number] Univers 00:00:00 00:00:00 Vijay [facility] 350.1.13.10 it y of [facility] 4.2.7.2.686 [place] as TOÑO?BLEA [phone] [facility] [address] MEDICAL OFFICE [facility] 2021-06-09 2021-06-09 Telephone Ar[facility]REH[facility] 1.2.081.887 [id number] Univers 00:00:00 00:00:00 Reji LAWSON 350.1.13.10 ity of [place]2.7.2.686 [place] [id number] [facility] 059 [facility] 2021-06-06 2021-06-06 Outpatient R DEYVI [facility] [id number] Univers 11:15:00 11:15:[address] [facility] 2021-06-06 2021-06-06 Outpatient R DEYVI, [facility] [id number] Univers 11:15:00 11:15:[address] [facility] 2021-06-02 2021-06-02 Outpatient R CRISTINA, [facility] [id number] Univers 15:45:00 15:45:00 WONDIFUL ity o f [facility] 2021-05-31 2021-05-31 Outpatient R JUAN [facility] [id number] Univers 10:00:00 10:46:[address] [facility] 2021-05-31 2021-05-31 Office VíctorkassandraREHOBOTH [facility] 1.2.840.114 [id number] Univers 10:00:00 10:46:31 Visit Vijay HEALTH 350.1.13.10 it y of [place] 4.2.7.2.686 [place] as TOÑO?BLEA [id number] [address] MEDICAL OFFICE [facility] 2021-05-31 2021-05-31 Outpatient R JUAN [facility] [id number] Univers 10:00:00 10:46:[address] [facility] 2021-05-31 2021-05-31 Orders Doctor JORDAN 1.2.840.114 [id number] Univers 00:00:00 00:00:00 Only Unassigned, YAZMIN 350.1.13.10 ity of [place] [facility] 4.2.7.2.686 [place] as [id number] [address] 2021-05-26 2021-05-26 Telephone YaneliREHOB[facility] 1.2.236.942 [id number] Univers 00:00:00 00:00:00 Skylar A HEALTH 350.1.13.10 i ty of [place] 4.2.7.2.686 Martin as TOÑO?BLEA [id number] [address] MEDICAL OFFICE BUILDING 2021-05-26 2021-05-[address] [facility] 1.2.152.677 [id number] Univers 00:00:00 00:00:00 Secure Msg Cam LULU 350.1.13.10 ity of [facility] 4.2.7.2.[place] [id number] Ct dical NAL 134 [facility] 2021-05-25 2021-05-25 Telemedici YaneliREHOB[facility] 1.2.840.114 [id number] Univers 14:00:00 14:30:00 ne Visit Skylar Cannon [facility] 350.1.13.10 ity of [place] 4.2.7.2.686 Martin as TOÑO?BLEA [id number] Ct whit KNEY [address] [facility] OFF[facility] 2021-05-25 2021-05-25 Outpatient R [facility] [id number] Univers 14:00:00 14:00:00 SKYLAR [facility] 2021-05-25 2021-05-25 [facility] [id number] Univers 14:00:00 14:00:00 SKYLAR [facility] 2021-05-24 2021-05-[address] [facility] 1.2.726.850 [id number] Univers 00:00:00 00:00:00 Sendzohra LAWSON 350.1.13.10 ity of [place].2.7.2.[place] [phone] [facility] 059 [facility] 2021-05-23 2021-05-23 Outpatient R [facility] [id number] Univers 10:00:00 10:00:[address] [facility] 2021-05-23 2021-05-23 Outpatient R [facility] [id number] Univers 10:00:00 10:00:00 [facility] 2021-05-16 2021-05-16 Outpatient R DEYVI [facility] [id number] Univers 09:00:00 09:00:00 TETO [facility] 2021-05-12 2021-05-12 Orders Doctor ORTEGA 1.2.840.114 [id number] Univers 00:00:00 00:00:00 Only Unassigned, YAZMIN 350.1.13.10 ity of [place] [facility] 4.2.7.2.686 [place] as [id number] [address] 2021-05-10 2021-05-10 Outpatient R CRISTINA [facility] [id number] Univers 13:00:00 13:00:00 WONDIFUL ity o f [facility] 2021-05-10 2021-05-10 Outpatient R CRISTINA [facility] [id number] Univers 13:00:00 13:00:00 WONDIFUL ity o f [facility] 2021-05-09 2021-05-[address] [facility] 1.2.840.114 [id number] Univers 00:00:00 00:00:00 Cam LULU 350.1.13.10 i ty of [place] 4.2.7.2.[place] [id number] Ct dical NAL 134 [facility] 2021-05-09 2021-05-09 Patient P[facility]REH[facility] 1.2.840.114 [id number] Univers 00:00:00 00:00:00 Secure Msg Rad LAWSON 350.1.13.10 ity of [place] 4.2.7.2.[place] [id number] Ct dical NAL 059 [facility] 2021-05-08 2021-05-08 Outpatient R YASMEEN [facility] [id number] Univers 16:00:00 16:00:[address] [facility] 2021-05-08 2021-05-08 Outpatient R YASMEEN [facility] [id number] Univers 16:00:00 16:00:[address] [facility] 2021-05-08 2021-05-08 Patient [facility]RE[facility] 1.2.840.114 [id number] Univers 00:00:00 00:00:00 Secure Msg Sendil KPilarHPilar LAWSON 350.1.13.10 ity of [place] 4.2.7.2.[place] [id number] Ct dical NAL 059 [facility] 2021-05-08 2021-05-08 Patient PonecREHOB[facility] 1.2.840.114 [id number] Univers 00:00:00 00:00:00 Secure Msg Sendil [facility] [place] 350.1.13.10 ity of [place] 4.2.7.2.[place] [id number] [place] 591829 [facility] 2021-05-03 2021-05-03 Outpatient R [facility] [id number] Univers 11:15:36 23:59:00 REJI maradiagay o f [facility] 2021-05-03 2021-05-03 [facility] 1.2.840.114 [id number] Univers 11:15:36 23:59:00 Encounter Reji LAWSON 350.1.13.10 ity of [facility] 4.2.7.2.[place] [phone] [address] 2021-05-03 2021-05-03 Telephone [facility] 1.2.840.114 [id number] Univers 00:00:00 00:00:00 Wondiful A HEALTH 350.1.13.10 ity of [facility] 4.2.7.2.686 [place] as TOÑO?BLEA [id number] [address] [facility] 2021-05-02 2021-05-02 Telephone [facility] 1.2.003.264 [id number] Univers 00:00:00 00:00:00 Sendzohra K.HPilar [place] 350.1.13.10 ity of [place] 4.2.7.2.[place] [id number] [address] 2021-05-02 2021-05-02 Patient [facility] 1.2.840.114 [id number] Univers 00:00:00 00:00:00 Secure Msg Wondiful A HEALTH 350.1.13.10 ity of [facility] 4.2.7.2.686 [place] as TOÑO?BLEA [id number] [address] [facility] 2021-05-02 2021-05-02 Telephone [facility] 1.2.840.114 [id number] Univers 00:00:00 00:00:00 Wondiful A HEALTH 350.1.13.10 ity of [facility] 4.2.7.2.686 Martin as TOÑO?BLEA [id number] Ct whit [place] [address] [facility] 2021-05-02 2021-05-02 Patient Ponce, [facility] 1.2.840.114 [id number] Univers 00:00:00 00:00:00 Secure Msg Rad LAWSON 350.1.13.10 ity of [facility] 4.2.7.2.686 [place] [facility] [phone] [facility] 059 [facility] 2021-04-27 2021-04-27 Emergency [facility] E[facility] [id number] Univers 14:24:00 15:49:[address] [facility] 2021-04-27 2021-04-27 Emergency [facility] 1.2.840.114 [id number] Univers 14:24:00 15:49:00 Maggie LAWSON 350.1.13.10 ity [place].7.2.[place] [phone] [facility] [address] 2021-04-27 2021-04-27 Laboratory Only, Ang Db Test [facility] 1.2.8 40.114 [id number] Univers 11:15:00 11:30:00 Only Unknown, Attending HEALTH 350.1.13.10 ity of Thony Johnson 4.2.7.2.686 [place] TOÑO?BLEA [phone] Ct alessandraaliyah [place] [address] MEDICAL OFF[address] [facility] 2021-04-27 2021-04-27 Outpatient R SIL [facility] [id number] Univers 11:15:00 11:15:[address] [facility] 2021-04-27 2021-04-27 Orders Doctor [place]TE[place] 1.2.840.114 [id number] Univers 00:00:00 00:00:00 Only Unassigned, YAZMIN 350.1.13.10 ity of [place] [facility] 4.2.7.2.686 [place] as [id number] [address] 2021-04-20 2021-04-20 Outpatient R JUSTINE [facility] [id number] Univers 15:00:00 15:00:00 [facility] 2021-04-13 2021-04-[address] [facility] 1.2.840.114 [id number] Univers 00:00:00 00:00:00 Secure Msg Wondiful A HEALTH 350.1.13.10 ity [facility] 4.2.7.2.686 [place] as TOÑO?BLEA [phone] [address] [facility] 2021-04-12 2021-04-[address] 1.2.840.114 [id number] Univers 00:00:00 00:00:00 Wondiful A HEALTH 350.1.13.10 ity of [place] 4.2.7.2.686 [place] as TOÑO?BLEA [id number] [address] 2021-03-27 2021-03-[address] [facility] 1.2.840.114 [id number] Univers 00:00:00 00:00:00 Cam [place] 350.1.13.10 i ty of [place] 4[place]2.7.2.686 [place] [phone] [address] 2021-03-23 2021-03-23 Outpatient R KAVYA [facility] [id number] Univers 13:30:00 13:30:00 CHILVANA ity o f [facility] 2021-03-23 2021-03-23 Outpatient R [facility] [id number] Univers 13:30:00 13:30:00 CHILVANA ity o f [facility] 2021-03-22 2021-03-22 Outpatient R NEHEMIAH MEEKSUTEz [facility] [id number] Univers 09:20:00 09:20:[address] [facility] 2021-03-22 2021-03-22 Outpatient R NEHEMIAH MEEKSUTEz [facility] [id number] Univers 09:20:00 09:20:00 ADITYA MEEKS ity of [facility] 2021-03-20 2021-03-20 Outpatient R CRISTINA [facility] [id number] Univers 00:00:00 00:00:00 WONDIFUL ity o f [facility] 2021-03-18 2021-03-18 Case [facility] 1.2.840.114 [id number] Univers 00:00:00 00:00:00 Management Wondiful A HEALTH 350.1.13.10 ity of [place] 4.2.7.2.686 Martin as TOÑO?BLEA [id number] [facility] 044 [facility] 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 2021-03-16 2021-03-16 Outpatient R CRISTINA [facility] [id number] Univers 11:30:00 11:30:00 WONDIFUL ity o f [facility] 2021-03-16 2021-03-16 Outpatient R CRISTINA [facility] [id number] Univers 11:00:00 11:14:45 WONDIFUL ity o f [facility] 2021-03-16 2021-03-16 Office [facility] 1.2.840.114 [id number] Univers 10:00:58 11:14:45 Visit Wondiful A HEALTH 350.1.13.10 ity of [place] 4.2.7.2.686 Martin as TOÑO?BLEA [phone] [address] OFF[address] [facility] 2021-03-16 2021-03-16 Patient [facility] 1.2.840.114 [id number] Univers 00:00:00 00:00:00 Secure Msg Wondiful A HEALTH 350.1.13.10 ity of [place] 4.2.7.2.686 Martin as TOÑO?BLEA [phone] [address] [facility] 2021-03-02 2021-03-02 Outpatient [facility] [id number] Univers 16:15:00 16:15:00 WONDIFUL ity o f [facility] 2021-02-28 2021-02-28 Out[facility] [id number] Univers 18:30:00 18:30:[address] [facility] 2021-02-28 2021-02-28 Telephone [facility] 1.2.840.114 [id number] Univers 00:00:00 00:00:00 Wondiful A Health 350.1.13.10 ity of [place] 4.2.7.2.686 [place] as Toño?Blea [phone] [address] 2021-02-27 2021-02-27 Outpatient R STEPHANY [facility] [id number] Univers 09:00:00 09:00:[address] [facility] 2021-02-23 2021-02-23 Telephone [facility] 1.2.840.114 [id number] Univers 00:00:00 00:00:00 Wondiful A Health 350.1.13.10 ity of [place] 4.2.7.2.686 Martin as Toño?Blea [phone] [address] Office [facility] 2021-02-10 2021-02-10 Emergency Dev, K 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 1.2.840.1 14 [id number] Univers 13:49:05 14:04:05 Visit Brian Evanslgbonnie A Health 350.1.13.1 0 ity of [place] 4.2.7.2.686 Martin as Toño?Blea [id number] Ct [place] 353 [facility] Office [facility] 2021-02-09 2021-02-09 Office [facility] 1.2.840.114 [id number] Univers 12:23:13 13:47:12 Visit Wondiful A Health 350.1.13.10 ity of [place] 4.2.7.2.686 Martin as Toño?Blea [phone] Ct [place] 044 [facility] 2021-02-09 2021-02-09 Outpatient R CRISTINA [facility] [id number] Univers 13:00:00 13:00:00 WONDIFUL ity o f [facility] 2021-02-08 2021-02-08 Outpatient R ADITYA MEEKS [facility] [id number] Univers 10:20:00 10:20:[address] [facility] 2021-02-02 2021-02-02 Outpatient R YANELI [facility] [id number] Univers 10:30:00 10:30:[address] [facility] 2021-02-02 2021-02-02 Telephone [facility] 1.2.840.114 [id number] Univers 00:00:00 00:00:00 Wondiful A Health 350.1.13.10 ity of [place] 4.2.7.2.686 Martin as Toño?Blea [phone] Ct [place] 044 [facility] 2021-02-01 2021-02-01 Outpatient R YANELI [facility] [id number] Univers 08:30:00 08:30:[address] [facility] 2021-01-31 2021-01-[address] [facility] 1.2.840.114 [id number] Univers 18:44:04 19:41:26 Care [facility] 350.1.13.10 i ty of [place] 4.2.7.2.686 [place] as Toño?Blea [phone] [facility] [address] [facility] Office [facility] 2021-01-31 2021-01-31 Outpatient R [facility] [id number] Univers 19:00:00 19:00:00 FLACO ity o f [facility] 2021-01-31 2021-01-31 Telephone [facility] 1.2.840.114 [id number] Univers 00:00:00 00:00:00 Wondiful A Health 350.1.13.10 ity of [place] 4.2.7.2.686 Martin as Toño?Blea [phone] [facility] 044 [facility] Office [facility] 2021-01-30 2021-01-30 Telephone [facility] 1.2.126.925 [id number] Univers 00:00:00 00:00:00 Sendil Cuate [place] 350.1.13.10 ity of [place] [phone] [facility] 059 [facility] 2021-01-26 2021-01-26 Outpatient R PONCE [facility] [id number] Univers 14:00:00 14:00:00 [facility] 2021-01-25 2021-01-25 Outpatient R [facility] [id number] Univers 15:00:00 15:00:[address] [facility] 2021-01-20 2021-01-20 Telemedici YaneliRE[facility] 1.2.840.114 [id number] Univers 16:51:22 17:12:41 ne Visit Skylar A Health 350.1.13.10 ity of [place] 4.2.7.2.686 [place] as Toño?Blea [phone] [facility] 044 [facility] Office [facility] 2021-01-20 2021-01-20 Outpatient R [facility] [id number] Univers 16:30:00 16:30:00 [facility] 2021-01-19 2021-01-19 Outpatient R L[facility] [id number] Univers 10:15:00 10:15:[address] [facility] 2021-01-14 2021-01-14 JORDAN Guzman 1.2.840.114 [id number] Univers 00:00:00 00:00:00 Management Kassandra Asim YAZMIN 350.1.13.10 ity of [facility] 4.2.7.2.686 Martin as [id number] [facility] [address] 2021-01-12 2021-01-12 Emergency [facility] 1.2.580.991 [id number] Univers 16:10:00 19:45:00 Karin Lawson 350.1.13.10 i ty [facility] 4.2.7.2.[place] [phone] [facility] [address] 2021-01-12 2021-01-12 Outpatient [facility] [id number] Univers 15:20:00 15:20:00 ILEANA [facility] 2021-01-12 2021-01-[address] [facility] 1.2.840.114 [id number] Univers 14:46:57 15:06:57 [facility] 350.1.13.10 ity [facility] 4.2.7.2.686 [place] as Toño?Blea [phone] Ct whit ocasioey [address] [facility] Building 2020-12-26 2020-12-26 Outpatient R [facility] [id number] Univers 15:30:00 16:13:[address] [facility] 2020-12-26 2020-12-26 Office [facility] 1.2.840.114 [id number] Univers 15:30:00 16:13:32 Visit Rad LAWSON 350.1.13.10 ity [facility] 4.2.7.2.[place] [facility] [phone] Ct dical NAL [address] [facility] 2020-12-26 2020-12-26 Office [facility] 1.2.840.114 [id number] Univers 15:00:32 16:13:32 Visit Rad Lawson 350.1.13.10 [facility] 4.2.7.2.686 [phone] [facility] dical nal 059 [facility] 2020-12-26 2020-12-26 Outpatient [facility] [id number] Univers 15:30:00 15:30:[address] [facility] 2020-11-22 2020-11-22 Outpatient R APURVAM[facility] [id number] Univers 11:00:00 11:00:[address] [facility] 2020-11-10 2020-11-[address] [facility] 1.2.840.114 [id number] 18:42:46 19:53:43 [facility] 350.1.13.10 [place] 4.2.7.2.686 Professio [phone] nal [address] 2020-11-10 2020-11-10 Outpatient R [facility] [id number] Univers 19:00:00 19:00:[address] [facility] 2020-10-31 2020-10-[address]e Méndez [facility] 1.2.840.114 [id number] 18:52:00 22:15:00 Sharlene Lawson 350.1.13.10 [place] 4.2.7.2.686 [place] [id number] [id number] 2020-10-31 2020-10-31 Outpatient R [facility] [id number] Univers 19:00:00 19:00:00 BEBA fitzpatrick f [facility] 2020-10-31 2020-10-31 Orders Doctor ORTEGA 1.2.840.114 [id number] 00:00:00 00:00:00 Only Unassigned, YAZMIN 350.1.13.10 Shelley [facility] 4.2.7.2.686 [id number] [id number] 2020-10-20 2020-10-[address] Méndez [facility] 1.2.840.114 [id number] 14:02:00 17:13:00 Sharlene Lawson 350.1.13.10 [place] 4.2.7.2.686 [place] [id number] [id number] 2020-10-14 2020-10-[address] [facility] 1.2.840.114 [id number] 10:00:00 23:59:00 Encounter Jm Lawson 350.1.13.10 [place] 4.2.7.2.686 [place] [id number] 806 2020-10-14 2020-10-14 Outpatient Farzana MIXON [facility] [id number] Univers 13:30:00 13:30:00 CELINA [facility] 2020-10-09 2020-10-09 Emergency [facility] 1.2.345.674 [id number] 12:00:00 15:57:00 Anna Lawson 350.1.13.10 [place] 4.2.7.2.686 [place] [id number] 2020-10-06 2020-10-[address] [facility] 1.2.358.897 [id number] 08:53:00 09:46:44 Visit Jm Lawson 350.1.13.10 [place] 4.2.7.2.686 [facility] [phone] [address] 2020-10-06 2020-10-06 Outpatient Farzana VARGAS PRASANNA [facility] [id number] Univers 09:30:00 09:30:[address] [facility] 2020-10-04 2020-10-04 Outpatient Farzana MIXON [facility] [id number] Univers 14:00:00 14:00:[address] [facility] 2020-09-30 2020-09-30 Outpatient Farzana MIXON [facility] [id number] Univers 10:30:00 10:30:00 CELINA [facility] 2020-09-29 2020-09-29 Outpatient Farzana SHAY [facility] [id number] Univers 13:45:00 13:45:00 PREET [facility] 2020-09-06 2020-09-06 Outpatient Farzana PRASANNA VARGAS [facility] [id number] Univers 15:30:00 15:30:00 [facility] 2020-09-02 2020-09-02 Outpatient R YOSELIN DARRION [facility] [id number] Univers 15:40:00 15:40:00 DARRION WYATT [facility] 2020-08-31 2020-08-31 Outpatient R PONCE [facility] [id number] Univers 10:30:00 10:30:00 [facility] 2020-08-18 2020-08-18 Outpatient R VARGASPRASANNA [facility] [id number] Univers 09:30:00 09:30:00 [facility] 2020-08-11 2020-08-11 Outpatient Farzana VARGASPRASANNA [facility] [id number] Univers 13:30:00 13:30:00 [facility] 2020-08-04 2020-08-04 Outpatient R JUSTINE [facility] [id number] Univers 14:00:00 14:00:00 [facility] 2020-07-28 2020-07-28 Outpatient R PONCE [facility] [id number] Univers 10:30:00 10:30:00 SENDIL [facility] 2020-06-30 2020-06-30 Outpatient Farzana EVANS [facility] [id number] Univers 16:15:00 16:15:00 WONDIFUL ity o f [facility] 2020-06-17 2020-06-17 Outpatient R DARRION WYATT [facility] [id number] Univers 15:00:00 15:00:00 DARRION WYATT [facility] 2020-06-16 2020-06-16 Outpatient R PONCE [facility] [id number] Univers 15:30:00 15:30:00 [facility] 2020-06-09 2020-06-09 Outpatient R NI DISLA [facility] [id number] Univers 12:30:00 12:30:00 [facility] 2020-06-08 2020-06-08 Outpatient R NI DISLA [facility] [id number] Univers 08:00:00 08:00:00 [facility] 2020-06-02 2020-06-02 Outpatient R PONCE [facility] [id number] Univers 09:00:00 09:00:00 SENDIL [facility] 2020-05-28 2020-05-28 Outpatient R NATASHA [facility] [id number] Univers 10:00:00 10:00:00 BEBA ity o f [facility] 2020-05-24 2020-05-24 Outpatient R NI DISLA [facility] [id number] Univers 10:00:00 10:00:00 [facility] 2020-05-19 2020-05-19 Outpatient R OSITO HITCHCOCK [facility] [id number] Univers 16:30:00 16:30:00 [facility] 2020-05-17 2020-05-17 Outpatient R DARRION WYATT [facility] [id number] Univers 13:00:00 13:00:00 DARRION WYATT [facility] 2020-05-16 2020-05-16 Outpatient R CRISTINA [facility] [id number] Univers 16:00:00 16:00:00 WONDIFUL ity o f [facility] 2020-05-08 2020-05-[address] [facility] ERT [id number] Univers 10:24:00 13:03:00 EDGAR [facility] 2020-05-03 2020-05-03 Outpatient R CRISTINA [facility] [id number] Univers 15:00:00 15:00:00 WONDIFUL ity o f [facility] 2020-04-30 2020-05-[address] [facility] JOSÉ MANUEL [id number] Univers 11:14:00 15:50:00 RODRIGUEZ [facility] 2020-04-30 2020-04-30 Outpatient Farzana SHAY [facility] [id number] Univers 10:20:00 10:20:00 ROSALES [facility] 2020-04-30 2020-04-30 Outpatient R JASPAL [facility] [id number] Univers 10:15:00 10:15:00 ROSALES [facility] 2020-04-28 2020-04-28 Outpatient R OSITO HITCHCOCK [facility] [id number] Univers 14:00:00 14:00:[address] [facility] 2020-04-25 2020-04-25 Outpatient R CRISTINA [facility] [id number] Univers 16:15:00 16:15:00 WONDIFUL ity o f [facility] 2020-04-18 2020-04-18 Outpatient R CORETTALAUREN HuiSIR [facility] [id number] Univers 10:00:00 10:00:00 [facility] 2020-04-15 2020-04-15 Outpatient R PONCE [facility] [id number] Univers 10:30:00 10:30:00 SENDIL [facility] 2020-04-12 2020-04-13 Outpatient X MARICRUZ DELUNA [facility] [id number] Univers 13:38:00 16:25:00 [facility] 2020-03-17 2020-03-17 Outpatient R DEYVI [facility] [id number] Univers 16:15:00 16:15:00 [facility] 2020-03-04 2020-03-04 Refill [facility] 1.2.840.114 [id number] 00:00:00 00:00:00 MULTISPEC 350.1.13.10 [place] 4.2.7.2.686 [place] [id number] AND ERIBERTO [facility] 2020-02-25 2020-02-25 Outpatient R CORETTAOSITO Hui [facility] [id number] Univers 16:00:00 16:00:00 [facility] 2020 2020 Outpatient R DEYVI [facility] [id number] Univers 14:00:00 14:00:00 TETO [facility] 2020-02-08 2020-02-08 Outpatient R PRASANNA VARGAS [facility] [id number] Univers 10:30:00 10:30:00 [facility] 2020-02-04 2020-02-04 Outpatient R OSITO HITCHCOCK [facility] [id number] Univers 13:30:00 13:30:00 [facility] 2020-01-23 2020-01-23 Outpatient R [facility] [id number] Univers 10:15:00 10:15:00 [facility] 2020-01-21 2020-01-21 Outpatient R JACOB HITCHCOCKR [facility] [id number] Univers 13:00:00 13:00:00 [facility] 2020-01-14 2020-01-14 Outpatient R CORETTAJACOBR [facility] [id number] Univers 16:00:00 16:00:00 [facility] 2020-01-05 2020-01-05 Outpatient R PRASANNA VARGAS [facility] [id number] Univers 13:45:00 13:45:00 [facility] 2019-12-03 2019-12-03 Outpatient R AKINSIPE, [facility] [id number] Univers 10:30:00 10:30:00 CRICKET ity o f [facility] 2019-11-27 2019-11-27 Outpatient R VANAPHAN, [facility] [id number] Univers 11:00:00 11:00:00 [facility] 2019-11-25 2019-11-25 Outpatient R VANAPHAN, [facility] [id number] Univers 08:00:00 08:00:00 [facility] 2019-11-18 2019-11-18 Outpatient R VANAPHAN, [facility] [id number] Univers 10:00:00 10:00:00 [facility] 2019-09-02 2019-09-02 Outpatient R AKINSIPE, [facility] [id number] Univers 11:00:00 11:00:00 CRICKET ity o f [facility] 2019-08-14 2019-08-14 Outpatient R VANAPHAN, [facility] [id number] Univers 10:15:00 10:15:00 [facility] 2019-08-13 2019-08-13 Outpatient R AKINSIPE, [facility] [id number] Univers 11:00:00 11:00:00 CRICKET ity o f [facility] 2019-08-12 2019-08-12 Outpatient R [facility] [id number] Univers 09:00:00 09:00:00 [facility] 2019-07-20 2019-07-20 Outpatient [address] PRASANNA VARGAS [facility] CHRIS [id number] Univers 16:06:00 16:06:00 [facility] 2019-07-20 2019-07-20 Outpatient R AKINSIPE, [facility] [id number] Univers 08:15:00 08:15:00 CRICKET ity o f [facility] 2019-07-13 2019-07-13 Outpatient R AKINSIPE, [facility] [id number] Univers 08:00:00 08:00:00 CRICKET ity o f [facility] 2019-07-12 2019-07-12 Outpatient P PRASANNA VARGAS [facility] CHRIS [id number] Univers 13:39:00 13:39:00 [facility] 2019-07-06 2019-07-06 Outpatient R AKINSIPE, [facility] [id number] Univers 13:00:00 13:00:00 CRICKET ity o f [facility] 2019-06-13 2019-06-13 Emergency X YARIMA, [facility] ERT [id number] Univers 10:40:46 12:35:00 SARAHI [facility] 2019-05-13 2019-05-14 Outpatient P PRASANNA VARGAS [facility] CHRIS [id number] Univers 23:07:00 09:15:00 [facility] Results Test Description Test Time Test Comments Results Result Comments Source POCT TEST 2022-03-24 14:07:00 Test Item Value Reference Range Interpretation Comme nts POCT PREG (test code = 1605) negative On board controls acceptable with C Line (test code = 3574) present POCT PREG LOT # (test code = 3575) [id number] POCT PREG TEST DATE (test code = 3576) 08/11/2023 Lab Interpretation (test code = 39378-8) [id number] 13:52:00 Test Item Value Reference Range Interpretation Comments POCT PREG (test code = 1605) negative On board controls acceptable with C present Line (test code = 3574) Lab Interpretation (test code = Normal 41441-3) [facility] [id number] 14:59:00 Test Item Value Reference Range Interpretation Comments POCT PREG (test code = 1605) negative On board controls acceptable with yes C Line (test code = 3574) POCT PREG LOT # (test code = 3575) [id number] POCT PREG TEST DATE (test 07/11/2023 code = 3576) Lab Interpretation (test code = Normal 62501-4) [facility]. METABOLIC PANEL (25238)2022 17:51:43 Test Item Value Reference Range Interpretation Comments NA (test code = 139 mmol/L 135-145 4733780938) K (test code = 4.1 mmol/L 3.5-5 5359615896) CL (test code = 104 mmol/L 98-108 4345562940) CO2 TOTAL (test code = 22 mmol/L 23-31 L 6155201517) AGAP (test code = 2-16 1220272980) BUN (test code = 7 mg/dL 7-23 1282149494) GLUCOSE (test code = 114 mg/dL 70-110 H 1269111753) CREATININE (test code = 0.69 mg/dL 0.5-1.04 1012916477) TOTAL BILI (test code = 0.4 mg/dL 0.1-1.6 7757020261) CALCIUM (test code = 9.7 mg/dL 8.6-10.6 6532140785) T PROTEIN (test code = 7.2 g/dL 6.3-8.2 1030692036) ALBUMIN (test code = 4.6 g/dL 3.5-5 2367287014) ALK PHOS (test code = 65 U/L 34-122 2302397638) ALTv (test code = 15 U/L 5-35 1742-6) AST(SGOT) (test code = 19 U/L 13-40 7518219829) eGFR (test code = mL/min/1.73m2 6218136444) WESLEY (test code = WESLEY) Association of [...] tests). Lab Interpretation Abnormal (test code = 89469-2) [facility] WITH [id number] 17:40:24 Test Item Value Reference Range Interpretation Comments WBC (test code = See_Comment [Automated 3064-2) message] The sy stem which generated this result transmitted reference range : 4.30 - 11.10 10*3/?L. The reference range was not used to interpret this result as normal/abnormal . RBC (test code = See_Comment [Automated 989-8) message] The sy stem which generated this [...] RDW-SD (test code = 43.1 fL 39-49.9 20803-4) RDW-CV (test code = 13.2 % 12-15.5 788-0) PLT (test code = See_Comment [Automated 777-3) message] The sy stem which generated this result transmitted reference range : 166 - 358 10*3/ ?L. The reference r david was not used to interpret this result as normal/abnormal . MPV (test code = 9.5 fL 9.5-12.9 09452-7) NRBC/100 WBC (test See_Comment [Automat ed code = [id number]) message] The system which generated this result transmitted reference range : 0.0 - 10.0 /100 WBCs. The refer ence range was not u sed to interpret th is result as normal/abnormal . NRBC x10^3 (test code See_Comment [Auto mated = [id number]) message] The s ystem which generated this result transmitted reference range : 10*3/?L. The reference range was not used to interpret this result as normal/abnormal . GRAN MAT (NEUT) % 57.8 % (test code = 770-8) IMM GRAN % (test code 0.20 % = 6434952247) LYMPH % (test code = 30.8 % 736-9) MONO % (test code = 5.1 % 5905-5) EOS % (test code = 5.6 % 713-8) BASO % (test code = 0.5 % 706-2) GRAN MAT x10^3(ANC) 3.61 10*3/uL 1.88-7.09 (test code = 4848312141) IMM GRAN x10^3 (test 0-0.06 code = 7574197227) LYMPH x10^3 (test code 1.92 10*3/uL 1.32-3.29 = 731-0) MONO x10^3 (test code 0.32 10*3/uL 0.33-0.92 L = 742-7) EOS x10^3 (test code = 0.35 10*3/uL 0.03-0.39 711-2) BASO x10^3 (test code 0.03 10*3/uL 0.01-0.07 = 704-7) Lab Interpretation Abnormal (test code = 45536-7) [facility] [id number] 17:27:00 Test Item Value Reference Range Interpretation Comments POCT PREG (test code = 1605) negative On board controls acceptable with present C Line (test code = 3574) POCT PREG LOT # (test code = 3575) [id number] POCT PREG TEST DATE (test code = 3576) Lab Interpretation (test code = Normal 35495-4) [facility] Test Item Value Reference Range Interpretation Comments LIPASE (test code = 3168963516) 41 U/L 0-220 Lab Interpretation (test code = Normal 41902-8) [facility] [id number] 10:57:00 Test Item Value Reference Range Interpretation Comments POCT PREG (test code = 1605) Negative On board controls acceptable with Present C Line (test code = 3574) POCT PREG LOT # (test code = 3575) [id number] POCT PREG TEST DATE (test 03/12/2023 code = 3576) Lab Interpretation (test code = Normal 04648-3) [facility] (NA, K, CL, CO2, GLUCOSE, BUN, CREATININE, CA)2022-01-18 10:56:51 Test Item Value Reference Range Interpretation Comments NA (test code = 137 mmol/L 135-145 8667447536) K (test code = 4.6 mmol/L 3.5-5 Slight 5276405832) hemolysis CL (test code = 108 mmol/L 98-108 3424706095) CO2 TOTAL (test code 22 mmol/L 23-31 L = 1449383312) AGAP (test code = 2-16 7172983205) BUN (test code = 11 mg/dL 7-23 Slight 5401992988) hemolysis GLUCOSE (test code = 83 mg/dL 70-110 1012549773) CREATININE (test code 0.68 mg/dL 0.5-1.04 = 4635445912) CALCIUM (test code = 8.8 mg/dL 8.6-10.6 9275147929) eGFR (test code = mL/min/1.73m2 9174866852) WESLEY (test code = WESLEY) Association of [...] tests). Lab Interpretation Abnormal (test code = 19591-1) [facility] (ALB,T.PRO,BILI T,BU/BC,ALT,AST,ALK PHOS)2022-01-18 10:56:51 Test Item Value Reference Range Interpretation Comments TOTAL BILI (test code = 2638321076) 0.6 mg/dL 0.1-1.1 BILI UNCON (test code = 6937602078) 0.1 mg/dL 0.1-1.1 BILI CONJ (test code = 3775812760) 0.0 mg/dL 0-0.3 T PROTEIN (test code = 1961545945) 8.6 g/dL 6.3-8.2 H ALBUMIN (test code = 1215959904) 5.1 g/dL 3.5-5 H ALK PHOS (test code = 3123399260) 79 U/L 34-122 ALTv (test code = 1742-6) 117 U/L 5-35 H AST(SGOT) (test code = 1938424135) 163 U/L 13-40 H Lab Interpretation (test code = Abnormal 68572-5) [facility] [id number] 10:54:25 Test Item Value Reference Range Interpretation Comments PREG SERUM (test code Negative = 7451547927) WESLEY (test code = WESLEY) Less than 10 IU/L. ?If low titer or ectopic is suspected, resubmit specimen in 48-72 hours. [facility] WITH [id number] 10:40:49 Test Item Value Reference Range Interpretation Comments WBC (test code = See_Comment [Automated 2090-2) message] The sy stem which generated this result transmitted reference range : 4.30 - 11.10 10*3/?L. The reference range was not used to interpret this result as normal/abnormal . RBC (test code = See_Comment [Automated 405-8) message] The sy stem which generated this [...] RDW-SD (test code = 45.3 fL 39-49.9 93433-8) RDW-CV (test code = 14.5 % 12-15.5 788-0) PLT (test code = See_Comment [Automated 387-3) message] The sy stem which generated this result transmitted reference range : 166 - 358 10*3/ ?L. The reference r david was not used to interpret this result as normal/abnormal . MPV (test code = 9.5 fL 9.5-12.9 37601-9) NRBC/100 WBC (test See_Comment [Automat ed code = 0761264027) message] The system which generated this result transmitted reference range : 0.0 - 10.0 /100 WBCs. The refer ence range was not u sed to interpret th is result as normal/abnormal . NRBC x10^3 (test code See_Comment [Auto mated = 1527480251) message] The s ystem which generated this result transmitted reference range : 10*3/?L. The reference range was not used to interpret this result as normal/abnormal . GRAN MAT (NEUT) % 47.6 % (test code = 770-8) IMM GRAN % (test code 0.60 % = 5289953025) LYMPH % (test code = 39.9 % 736-9) MONO % (test code = 5.9 % 5905-5) EOS % (test code = 5.3 % 713-8) BASO % (test code = 0.7 % 706-2) GRAN MAT x10^3(ANC) 4.45 10*3/uL 1.88-7.09 (test code = 3962273067) IMM GRAN x10^3 (test 0.06 10*3/uL 0-0.06 code = 8558018936) LYMPH x10^3 (test code 3.74 10*3/uL 1.32-3.29 H = 731-0) MONO x10^3 (test code 0.55 10*3/uL 0.33-0.92 = 742-7) EOS x10^3 (test code = 0.50 10*3/uL 0.03-0.39 H 711-2) BASO x10^3 (test code 0.07 10*3/uL 0.01-0.07 = 704-7) Lab Interpretation Abnormal (test code = 51234-2) [facility] [id number] 18:31:00 Test Item Value Reference Range Interpretation Comments POCT PREG (test code = 1605) Negative On board controls acceptable with C Yes Line (test code = 3574) POCT PREG LOT # (test code = 3575) POCT PREG TEST DATE (test code = 3576) [facility]CIFIC [id number] 18:31:00 Test Item Value Reference Range Interpretation [...] code = 3257) Trace Negative - Negative [facility]"
[2022-04-07] MEDS ORDERED: KETOROLAC 30 MG/ML INJ ONE (08:41)
[2022-04-07] MEDS ORDERED: DIPHENHYDRAMINE 50 MG/ML VIAL ONE ×2 (08:41→09:39)
[2022-04-07] MEDS ORDERED: NA CHLORIDE 0.9% 1,000 ML ONE (08:41)
[2022-04-07] MEDS ORDERED: ONDANSETRON 4 MG/2 ML VIAL ONE (08:41)
[2022-04-07] MEDS ORDERED: KETAMINE HCL 500 MG/5 ML VIAL ONE (08:41)
[2022-04-07] MEDS ORDERED: dexAMETHasone 10 MG/ML VIAL ONE (08:58)
[2022-04-07] MEDS ORDERED: PROMETHAZINE INJ 25 MG/ML AMP ONE (09:24)
--- NOTE | 2022-04-07 10:05 | EDPHYS ---
Physician Documentation [facility] Name: Natanael Dyson Age: 27 yrs Sex: Female : 1995 Arrival Date: 04/07/2022 Time: 08:28 Bed 12 Private MD: ED Physician eNto Dean HPI: 04/07 08:35 This 27 yrs old Female presents to ER via Ambulatory with complaints of Headache, jmm Blurred Vision. 08:35 The patient complains of pain to the forehead. Onset: The symptoms/episode jmm began/occurred gradually, 3 day(s) ago. Associated signs and symptoms: Pertinent positives: nausea. This is a 27 year old female with a history of migraines, asthma that presents to the ED with complaints of frontal headache which is consistent with previous migraines. Gradual onset. Patient was seen at urgent care and administered ketorlac with no relief. Denies fever. . 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 - Social history:: Smoking status: Patient denies any tobacco usage or history of. ROS: 08:35 Constitutional: Negative for fever, chills, and weight loss, Cardiovascular: Negative jmm for chest pain, palpitations, and edema, Respiratory: Negative for shortness of breath, cough, wheezing, and pleuritic chest pain. 08:35 Neuro: Positive for headache. 08:35 All other systems are negative. Exam: 08:35 Constitutional: This is a well developed, well nourished patient who is awake, alert, jmm and in no acute distress. Head/Face: atraumatic. Eyes: EOMI, no conjunctival erythema appreciated ENT: Moist Mucus Membranes Neck: Trachea midline, Supple Chest/axilla: Normal chest wall appearance and motion. Cardiovascular: Regular rate and rhythm. No edema appreciated Respiratory: Normal respirations, no respiratory distress appreciated Abdomen/GI: Non distended Back: Normal ROM Skin: General appearance color normal 08:35 Musculoskeletal/extremity: ROM: intact in all extremities. 08:35 Skin: Appearance: Color: normal in color. 08:35 Neuro: Orientation: is normal, Mentation: is normal, Memory: is normal, Motor: is normal. 08:35 Psych: Behavior/mood is pleasant, cooperative. Vital Signs: 08:30 BP 140 / 93; Pulse 111; Resp 18; Temp 98.7; Pulse Ox 100% ; Weight 57.15 kg; Height 5 tw5 ft. 1 in. (154.94 cm); Pain 9/10; 09:03 BP 133 / 57; Pulse 100; Resp 12; Pulse Ox 100% ; tw5 09:26 BP 123 / 90; Pulse 88; Resp 18; Pulse Ox 100% on R/A; tw5 08:30 Body Mass Index 23.81 (57.15 kg, 154.94 cm) tw5 MDM: 08:35 Patient medically screened. [facility] 10:04 Data reviewed: vital signs, nurses notes. Counseling: I had a detailed discussion with [facility] the patient and/or guardian regarding: the historical points, exam findings, and any diagnostic results supporting the discharge/admit diagnosis, the need for outpatient follow up, to return to the emergency department if symptoms worsen or persist or if there are any questions or concerns that arise at home. 10:16 ED course: I discussed with the patient that we would not administer opioids during [facility] this visit. After administration of medications, states she still did not reveal.. 04/07 08:35 Order name: Saline Lock; Complete Time: 09:05 [facility] Administered Medications: 08:36 CANCELLED (Duplicate Order): Ketamine 2 mg/kg IVP once [facility] 09:05 Drug: NS 0.9% 1000 ml Route: IV; Rate: 1 bolus; Site: left antecubital; tw 09:05 Drug: Ketorolac 30 mg Route: IVP; Site: left antecubital; tw09 18:26 Follow up: Response: No adverse reaction; Pain is unchanged, physician notified tw 09:05 Drug: diphenhydrAMINE 12.5 mg Route: IVP; Site: left antecubital; tw09 18:26 Follow up: Response: No adverse reaction; Pain is unchanged, physician notified tw 09:05 Drug: Ketamine 20 mg {Note: administered under provider supervision with two nurse tw5 witnesses.} Route: IVP; Site: left antecubital; :26 Follow up: Response: No adverse reaction; Pain is unchanged, physician notified :05 Drug: Zofran (Ondansetron) 4 mg Route: IVP; Site: left antecubital; 5 09:26 Follow up: Response: No adverse reaction; Nausea is increased 09:05 Drug: Decadron - Dexamethasone 10 mg Route: IVP; Site: left antecubital; 5 :26 Follow up: Response: No adverse reaction : Drug: Promethazine 12.5 mg Route: IVP; Site: left antecubital; :41 Drug: diphenhydrAMINE 25 mg Route: IVP; Site: left antecubital; tw5 Disposition: 15:19 Co-signature as Attending Physician, Neto BRYSON was immediately available on-site ms3 in the Emergency Department for consultation in the care of the patient. Disposition Summary: 04/07/22 10:04 Discharge Ordered Location: Home [facility] Condition: Stable jm Diagnosis - Migraine Headache [facility] Followup: jmm - With: Private Physician - When: 1 - 2 days - Reason: Recheck today's complaints, Continuance of care, Re-evaluation by your physician Discharge Instructions: - Discharge Summary Sheet jm - Migraine Headache [facility] Forms: - Medication Reconciliation Form jmm - Thank You Letter jmm - Antibiotic Education jmm - Prescription Opioid Use jm Signatures: Kolton Nazario PA PA jmm Sims, Marcus, DO DO ms3 [place] tw5 Corrections: (The following items were deleted from the chart) 08:36 08:36 Ketamine 2 mg/kg IVP once ordered. jmm jm
--- NOTE | 2022-04-07 10:05 | ER ---
Nurse's Notes [facility] Name: Natanael Dyson Age: 27 yrs Sex: Female : 1995 Arrival Date: 04/07/2022 Time: 08:28 Bed 12 Private MD: Diagnosis: Migraine Headache Presentation: 04/07 08:30 Chief complaint: Patient states: "I have a really bad migraine, to the point were my tw5 hair hurts. Today is the third day. I took two sumatriptan and then my neurologist told me to come here.". Coronavirus screen: Vaccine status: Patient reports being unvaccinated. Ebola Screen: Patient negative for fever greater than or equal to 101.5 degrees Fahrenheit, and additional compatible Ebola Virus Disease symptoms Patient denies exposure to infectious person. Patient denies travel to an Ebola-affected area in the 21 days before illness onset. Initial Sepsis Screen: Does the patient meet any 2 criteria? HR > 90 bpm. Does the patient have a suspected source of infection? No. Patient's initial sepsis screen is negative. Risk Assessment: Do you want to hurt yourself or someone else? Patient reports no desire to harm self or others. Onset of symptoms was April 04, 2022. 08:30 Method Of Arrival: Ambulatory tw5 08:30 Acuity: THIERNO 4 tw5 Triage Assessment: 08:30 Headache History: The patient has had previous headaches and this one is more severe tw5 than previous episodes. General: Appears uncomfortable, Behavior is calm, cooperative, appropriate for age. Pain: Pain currently is 9 out of 10 on a pain scale. Pain began 3 hours ago. Also complains of photophobia. Neuro: Level of Consciousness is awake, alert, obeys commands, Oriented to person, place, time, situation. 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 - Social history:: Smoking status: Patient denies any tobacco usage or history of. Screenin:48 Abuse screen: Denies threats or abuse. Denies injuries from another. Nutritional tw5 screening: No deficits noted. Tuberculosis screening: No symptoms or risk factors identified. Fall Risk None identified. Assessment: 08:48 General: Appears uncomfortable, unkempt. Pain: Pain currently is 9 out of 10 on a pain tw5 scale. Neuro: No deficits noted. 09:03 General: Medications administered patient states " I feel weird.". Respiratory: Airway tw5 is patent Trachea midline Respiratory effort is even, unlabored. 09:26 General: Reports "I am nauseous and my head still hurts. Can I get something else for tw5 the pain.". Vital Signs: 08:30 BP 140 / 93; Pulse 111; Resp 18; Temp 98.7; Pulse Ox 100% ; Weight 57.15 kg; Height 5 tw5 ft. 1 in. (154.94 cm); Pain 9/10; 09:03 BP 133 / 57; Pulse 100; Resp 12; Pulse Ox 100% ; tw5 09:26 BP 123 / 90; Pulse 88; Resp 18; Pulse Ox 100% on R/A; tw5 08:30 Body Mass Index 23.81 (57.15 kg, 154.94 cm) tw5 ED Course: 08:28 Patient arrived in ED. as 08:30 Arm band placed on. tw5 08:31 Kolton Nazario PA is PHCP. jm 08:31 Harjit Samson MD is Attending Physician. jmm 08:32 Triage completed. tw5 08:39 Neto Dean DO is Attending Physician. ms3 08:48 [place] Canales is Primary Nurse. tw5 08:48 Patient has correct armband on for positive identification. Bed in low position. Call tw5 light in reach. Side rails up X 1. Client placed on continuous cardiac and pulse oximetry monitoring. NIBP monitoring applied. Door closed. Noise minimized. Moved to private room. Warm blanket given. Pillow given. Verbal reassurance given. 09:03 No provider procedures requiring assistance completed. Inserted saline lock: 20 gauge tw5 in left antecubital area, using aseptic technique. Blood collected. 10:12 IV discontinued, Pressure dressing applied. mm9 Administered Medications: 08:36 CANCELLED (Duplicate Order): Ketamine 2 mg/kg [facility]P [facility] 09:05 Drug: NS 0.9% 1000 ml Route: IV; Rate: 1 bolus; Site: left antecubital; 09:05 Drug: Ketorolac 30 mg Route: IVP; Site: left antecubital; :26 Follow up: Response: No adverse reaction; Pain is unchanged, physician notified :05 Drug: diphenhydrAMINE 12.5 mg Route: IVP; Site: left antecubital; :26 Follow up: Response: No adverse reaction; Pain is unchanged, physician notified :05 Drug: Ketamine 20 mg {Note: administered under provider supervision with two nurse tw5 witnesses.} Route: IVP; Site: left antecubital; : Follow up: Response: No adverse reaction; Pain is unchanged, physician notified :05 Drug: Zofran (Ondansetron) 4 mg Route: IVP; Site: left antecubital; :26 Follow up: Response: No adverse reaction; Nausea is increased :05 Drug: Decadron - Dexamethasone 10 mg Route: IVP; Site: left antecubital; :26 Follow up: Response: No adverse reaction : Drug: Promethazine 12.5 mg Route: IVP; Site: left antecubital; tw5 09:41 Drug: diphenhydrAMINE 25 mg Route: IVP; Site: left antecubital; Medication: 08:48 VIS not applicable for this client. Outcome: 10:04 Discharge ordered by MD. bradshaw 10:22 Patient left the ED. mm9 Signatures: Kolton Nazario PA PA jmm Martinez, Amelia as Sims, Marcus, DO DO 3 [place] Canales tw5 Emilia Win mm9 Corrections: (The following items were deleted from the chart) 08:33 08:30 Acuity: THIERNO 4 08:49 08:30 Acuity: THIERNO 3
[2022-04-07 10:50] VITALS: TEMP 98.7; O2SAT 100
[2022-04-07 10:53] VITALS: BP 123/90
== END 2022-04-07 10:22 | disposition home or self-care (01) ==
LOC: ER 08:26
DX: G43.909 Migraine, unspecified, not intractable, without status migrainosus (principal); Z88.8 Allergy status to other drugs, medicaments and biological substances
CPT/HCPCS: 96375; 96374; 99283; J2550; J1200 ×2; J1100; J7030; J2405

== ENCOUNTER 2022-05-10 09:20 | Emergency (ER) | payer OTHER ==
--- OUTSIDE RECORDS SUMMARY | 2022-05-10 09:36 | XMS REPORT | Continuity of Care Document ---
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 Take one tablet at onset of migraine, may take another tablet 2 hours after initial dose if no relief with first dose. DO NOT EXCEED 100mg in a 24 hour period. SUMAtriptan 2022-1 Yes 50mg Take 1 Univ ers 50 mg 1-09 tablet by ity of tablet 00:00: mouth as [place] 00 needed for Medical Migraine. Branch Take one tablet at onset of migraine, may take another tablet 2 hours after initial dose if no relief with first dose. DO NOT EXCEED 100mg in a 24 hour period. SUMAtriptan 2022-1 Yes 50mg Take 1 Univ ers 50 mg 1-09 tablet by ity of tablet 00:00: mouth as [place] 00 needed for Medical Migraine. Branch Take one tablet at onset of migraine, may take another tablet 2 hours after initial dose if no relief with first dose. DO NOT EXCEED 100mg in a 24 hour period. SUMAtriptan 2022-1 Yes 50mg Take 1 Univ ers 50 mg 1-09 tablet by ity of tablet 00:00: mouth as [place] 00 needed for Medical Migraine. Branch Take one tablet at onset of migraine, may take another tablet 2 hours after initial dose if no relief with first dose. DO NOT EXCEED 100mg in a 24 hour period. SUMAtriptan 2022-1 Yes 50mg Take 1 Univ ers 50 mg 1-09 tablet by ity of tablet 00:00: mouth as [place] 00 needed for Medical Migraine. Branch Take one tablet at onset of migraine, may take another tablet 2 hours after initial dose if no relief with first dose. DO NOT EXCEED 100mg in a 24 hour period. SUMAtriptan 2022-1 Yes 50mg Take 1 Univ ers 50 mg 1-09 tablet by ity of tablet 00:00: mouth as [place] 00 needed for Medical Migraine. Branch Take one tablet at onset of migraine, may take another tablet 2 hours after initial dose if no relief with first dose. DO NOT EXCEED 100mg in a 24 hour period. SUMAtriptan 2022-1 Yes 50mg Take 1 Univ ers 50 mg 1-09 tablet by ity of tablet 00:00: mouth as [place] 00 needed for Medical Migraine. Branch Take one tablet at onset of migraine, may take another tablet 2 hours after initial dose if no relief with first dose. DO NOT EXCEED 100mg in a 24 hour period. SUMAtriptan 2022-1 Yes 50mg Take 1 Univ ers 50 mg 1-09 tablet by ity of tablet 00:00: mouth as [place] 00 needed for Medical Migraine. Branch Take one tablet at onset of migraine, may take another tablet 2 hours after initial dose if no relief with first dose. DO NOT EXCEED 100mg in a 24 hour period. SUMAtriptan 2022-1 Yes 50mg Take 1 [facility] ers 50 mg 1-09 tablet by ity of tablet 00:00: mouth as [place] 00 needed for Medical Migraine. Branch Take one tablet at onset of migraine, may take another tablet 2 hours after initial dose if no relief with first dose. DO NOT EXCEED 100mg in a 24 hour period. SUMAtriptan 2022-1 Yes 50mg Take 1 [facility] ers 50 mg 1-09 tablet by ity of tablet 00:00: mouth as [place] 00 needed for Medical Migraine. Branch Take one tablet at onset of migraine, may take another tablet 2 hours after initial dose if no relief with first dose. DO NOT EXCEED 100mg in a 24 hour period. SUMAtriptan 2022-1 Yes 50mg Take 1 Univ ers 50 mg 1-09 tablet by ity of tablet 00:00: mouth as [place] 00 needed for Medical Migraine. Branch Take one tablet at onset of migraine, may take another tablet 2 hours after initial dose if no relief with first dose. DO NOT EXCEED 100mg in a 24 hour period. SUMAtriptan 2022-1 Yes 50mg Take 1 [facility] ers 50 mg 1-09 tablet by ity of tablet 00:00: mouth as [place] 00 needed for Medical Migraine. Branch Take one tablet at onset of migraine, may take another tablet 2 hours after initial dose if no relief with first dose. DO NOT EXCEED 100mg in a 24 hour period. SUMAtriptan 2022-1 Yes 50mg Take 1 Univ ers 50 [...] 1 Medical 50 mcg dose, On Branch [facility] 03/15/22 at 1030, Routine proMETHazin 2021-05 No 25mg 25 mg, Uni vers e 05-15 Oral, ity of (PHENERGAN) 14:45: 14:55 ONCE, 1 [place] tablet 25 00 :00 dose, On Medica l mg [facility] 03/15/22 at 0945, [place] FENTanyl PF 2021-05- [...] 03/15/22 at 0900, [place] ondansetron 2021-05 Yes [id number] 4mg Take 1 [facility] 4 mg 1-03 tablet by ity of disintegrat 00:00: mouth [place] ing tablet 00 every 8 Medica l (eight) Branch hours as needed for Nausea and Vomiting (N/V). ketorolac 2021-05 Yes [id number] 10mg Take 1 U nivers 10 mg 1-03 tablet by ity of tablet 00:00: mouth [place] 00 every 6 Medical (six) Branch hours as needed for Pain (scale 7-10). proMETHazin 2021-05 Yes [id number] 25mg Take 1 Univers e 25 mg 1-03 tablet by ity of tablet 00:00: mouth [place] 00 every 6 Medical (six) Branch hours as needed for N/V unresponsi ve to Ondansetro n. ondansetron 2021-05 Yes [id number] 4mg Take 1 [facility] 4 mg 1-03 tablet by ity of disintegrat 00:00: mouth [place] ing tablet 00 every 8 Medica l (eight) Branch hours as needed for Nausea and Vomiting (N/V). ketorolac 2021-05 Yes [id number] 10mg Take 1 U nivers 10 mg 1-03 tablet by ity of tablet 00:00: mouth [place] 00 every 6 Medical (six) Branch hours as needed for Pain (scale 7-10). proMETHazin 2021-05 Yes [id number] 25mg Take 1 [facility] e 25 mg 1-03 tablet by ity of tablet 00:00: mouth [place] 00 every 6 Medical (six) Branch hours as needed for N/V unresponsi ve to Ondansetro n. carvediloL 2021-05 Yes [id number] 25mg Take 1 U nivers 25 mg 1-03 tablet by ity of tablet 00:00: mouth in [place] 00 the Medical morning Branch and 1 tablet in the evening. Take with meals. ondansetron 2021-05 Yes [id number] 4mg Take 1 [facility] 4 mg 1-03 tablet by ity of disintegrat 00:00: mouth [place] ing tablet 00 every 8 Medica l (eight) Branch hours as needed for Nausea and Vomiting (N/V). ketorolac 2021-05 Yes [id number] 10mg Take 1 U nivers 10 mg 1-03 tablet by ity of tablet 00:00: mouth [place] 00 every 6 Medical (six) Branch hours as needed for Pain (scale 7-10). proMETHazin 2021-05 Yes [id number] 25mg Take 1 Univers e 25 mg 1-03 tablet by ity of tablet 00:00: mouth [place] 00 every 6 Medical (six) Branch hours as needed for N/V unresponsi ve to Ondansetro n. carvediloL 2021-05 Yes [id number] 25mg Take 1 U nivers 25 mg 1-03 tablet by ity of tablet 00:00: mouth in [place] 00 the Medical morning Branch and 1 tablet in the evening. Take with meals. ondansetron 2021-05 Yes [id number] 4mg Take 1 [facility] 4 mg 1-03 tablet by ity of disintegrat 00:00: mouth [place] ing tablet 00 every 8 Medica l (eight) Branch hours as needed for Nausea and Vomiting (N/V). ketorolac 2021-05 Yes [id number] 10mg Take 1 U nivers 10 mg 1-03 tablet by ity of tablet 00:00: mouth [place] 00 every 6 Medical (six) Branch hours as needed for Pain (scale 7-10). proMETHazin 2021-05 Yes [id number] 25mg Take 1 Univers e 25 mg 1-03 tablet by ity of tablet 00:00: mouth [place] 00 every 6 Medical (six) Branch hours as needed for N/V unresponsi ve to Ondansetro n. carvediloL 2021-05 Yes [id number] 25mg Take 1 U nivers 25 mg 1-03 tablet by ity of tablet 00:00: mouth in [place] 00 the Medical morning Branch and 1 tablet in the evening. Take with meals. ondansetron 2021-05 Yes [id number] 4mg Take 1 [facility] 4 mg 1-03 tablet by ity of disintegrat 00:00: mouth [place] ing tablet 00 every 8 Medica l (eight) Branch hours as needed for Nausea and Vomiting (N/V). ketorolac 2021-05 Yes [id number] 10mg Take 1 U nivers 10 mg 1-03 tablet by ity of tablet 00:00: mouth [place] 00 every 6 Medical (six) Branch hours as needed for Pain (scale 7-10). proMETHazin 2021-05 Yes [id number] 25mg Take 1 Univers e 25 mg 1-03 tablet by ity of tablet 00:00: mouth [place] 00 every 6 Medical (six) Branch hours as needed for N/V unresponsi ve to Ondansetro n. carvediloL 2021-05 Yes [id number] 25mg Take 1 U nivers 25 mg 1-03 tablet by ity of tablet 00:00: mouth in [place] 00 the Medical morning Branch and 1 tablet in the evening. Take with meals. ondansetron 2021-05 Yes [id number] 4mg Take 1 [facility] 4 mg 1-03 tablet by ity of disintegrat 00:00: mouth [place] ing tablet 00 every 8 Medica l (eight) Branch hours as needed for Nausea and Vomiting (N/V). ketorolac 2021-05 Yes [id number] 10mg Take 1 U nivers 10 mg 1-03 tablet by ity of tablet 00:00: mouth [place] 00 every 6 Medical (six) Branch hours as needed for Pain (scale 7-10). proMETHazin 2021-05 Yes [id number] 25mg Take 1 Univers e 25 mg 1-03 tablet by ity of tablet 00:00: mouth [place] 00 every 6 Medical (six) Branch hours as needed for N/V unresponsi ve to Ondansetro n. carvediloL 2021-05 Yes [id number] 25mg Take 1 U nivers 25 mg 1-03 tablet by ity of tablet 00:00: mouth in [place] 00 the Medical morning Branch and 1 tablet in the evening. Take with meals. ondansetron 2021-05 Yes [id number] 4mg Take 1 [facility] 4 mg 1-03 tablet by ity of disintegrat 00:00: mouth [place] ing tablet 00 every 8 Medica l (eight) Branch hours as needed for Nausea and Vomiting (N/V). ketorolac 2021-05 Yes [id number] 10mg Take 1 U nivers 10 mg 1-03 tablet by ity of tablet 00:00: mouth [place] 00 every 6 Medical (six) Branch hours as needed for Pain (scale 7-10). proMETHazin 2021-05 Yes [id number] 25mg Take 1 Univers e 25 mg 1-03 tablet by ity of tablet 00:00: mouth [place] 00 every 6 Medical (six) Branch hours as needed for N/V unresponsi ve to Ondansetro n. carvediloL 2021-05 Yes [id number] 25mg Take 1 U nivers 25 mg 1-03 tablet by ity of tablet 00:00: mouth in [place] 00 the Medical morning Branch and 1 tablet in the evening. Take with meals. ondansetron 2021-05 Yes [id number] 4mg Take 1 [facility] 4 mg 1-03 tablet by ity of disintegrat 00:00: mouth [place] ing tablet 00 every 8 Medica l (eight) Branch hours as needed for Nausea and Vomiting (N/V). ketorolac 2021-05 Yes [id number] 10mg Take 1 U nivers 10 mg 1-03 tablet by ity of tablet 00:00: mouth [place] 00 every 6 Medical (six) Branch hours as needed for Pain (scale 7-10). proMETHazin 2021-05 Yes [id number] 25mg Take 1 Univers e 25 mg 1-03 tablet by ity of tablet 00:00: mouth [place] 00 every 6 Medical (six) Branch hours as needed for N/V unresponsi ve to Ondansetro n. carvediloL 2021-05 Yes [id number] 25mg Take 1 U nivers 25 mg 1-03 tablet by ity of tablet 00:00: mouth in [place] 00 the Medical morning Branch and 1 tablet in the evening. Take with meals. ondansetron 2021-05 Yes [id number] 4mg Take 1 [facility] 4 mg 1-03 tablet by ity of disintegrat 00:00: mouth [place] ing tablet 00 every 8 Medica l (eight) Branch hours as needed for Nausea and Vomiting (N/V). ketorolac 2021-05 Yes [id number] 10mg Take 1 U nivers 10 mg 1-03 tablet by ity of tablet 00:00: mouth [place] 00 every 6 Medical (six) Branch hours as needed for Pain (scale 7-10). proMETHazin 2021-05 Yes [id number] 25mg Take 1 Univers e 25 mg 1-03 tablet by ity of tablet 00:00: mouth [place] 00 every 6 Medical (six) Branch hours as needed for N/V unresponsi ve to Ondansetro n. carvediloL 2021-05 Yes [id number] 25mg Take 1 U nivers 25 mg 1-03 tablet by ity of tablet 00:00: mouth in [place] 00 the Medical morning Branch and 1 tablet in the evening. Take with meals. ondansetron 2021-05 Yes [id number] 4mg Take 1 [facility] 4 mg 1-03 tablet by ity of disintegrat 00:00: mouth [place] ing tablet 00 every 8 Medica l (eight) Branch hours as needed for Nausea and Vomiting (N/V). ketorolac 2021-05 Yes [id number] 10mg Take 1 U nivers 10 mg 1-03 tablet by ity of tablet 00:00: mouth [place] 00 every 6 Medical (six) Branch hours as needed for Pain (scale 7-10). proMETHazin 2021-05 Yes [id number] 25mg Take 1 Univers e 25 mg 1-03 tablet by ity of tablet 00:00: mouth [place] 00 every 6 Medical (six) Branch hours as needed for N/V unresponsi ve to Ondansetro n. carvediloL 2021-05 Yes [id number] 25mg Take 1 U nivers 25 mg 1-03 tablet by ity of tablet 00:00: mouth in [place] 00 the Medical morning Branch and 1 tablet in the evening. Take with meals. carvediloL 2021-05 Yes [id number] 25mg Take 1 U nivers 25 mg 1-03 tablet by ity of tablet 00:00: mouth in [place] 00 the Medical morning Branch and 1 tablet in the evening. Take with meals. carvediloL 2021-05 Yes [id number] 25mg Take 1 U nivers 25 mg 1-03 tablet by ity of tablet 00:00: mouth in [place] [address] the Medical morning [place] and 1 tablet in the evening. Take with meals. carvediloL 2021-05 Yes [id number] 25mg Take 1 U nivers 25 mg 1-03 tablet by ity of tablet 00:00: mouth in [place] [address] the [facility] morning Lov[place] and 1 tablet in the evening. Take with meals. carvediloL 2021-05 Yes [id number] 25mg Take 1 U nivers 25 mg 1-03 tablet by ity of tablet 00:00: mouth in [place] [address] the Medical morning [place] and 1 tablet in the evening. Take with meals. carvediloL 2021-05 Yes [id number] 25mg Take 1 U nivers 25 mg 1-03 tablet by ity of tablet 00:00: mouth in [place] [address] the Medical morning [place] and 1 tablet in the evening. Take with meals. carvediloL 2021-05 Yes [id number] 25mg Take 1 U nivers 25 mg 1-03 tablet by ity of tablet 00:00: mouth in [place] [address] the [facility] morning Lovely and 1 tablet in the evening. Take with meals. carvediloL 2021-05 Yes [id number] 25mg Take 1 U nivers 25 mg 1-03 tablet by ity of tablet 00:00: mouth in [address] morning Lovely and 1 tablet in the evening. Take with meals. carvediloL 2021-05 Yes [id number] 25mg Take 1 U nivers 25 mg 1-03 tablet by ity of tablet 00:00: mouth in [place] [address] the [facility] morning Lovely and 1 tablet in the evening. Take with meals. carvediloL 2021-05 Yes [id number] 25mg Take 1 U nivers 25 mg 1-03 tablet by ity of tablet 00:00: mouth in [address] morning Lovely and 1 tablet in the evening. Take with meals. carvediloL 2021-05 Yes [id number] 25mg Take 1 U nivers 25 mg 1-03 tablet by ity of tablet 00:00: mouth in [address] morning Lovely and 1 tablet in the evening. Take with meals. carvediloL 2021-05 Yes [id number] 25mg Take 1 U nivers 25 mg 1-03 tablet by ity of tablet 00:00: mouth in [address] morning Lovely and 1 tablet in the evening. Take with meals. ondansetron 2021-05- No [id number] 4mg Take 1 [facility] 4 mg 05-15 tablet by ity of disintegrat 00:00: 00:[place] 00 :00 every 8 Medica l (eight) Branch hours as needed for Nausea and Vomiting (N/V). ketorolac 2021-05- No [id number] 10mg Take 1 [facility] 10 mg 05-15 tablet by ity of tablet 00:00: 00:00 mouth [place] 00 :00 every 6 Medical (six) Branch hours as needed for Pain (scale 7-10). proMETHazin 2021-05- No [id number] 25mg Take 1 Univers e 25 mg 05-15 tablet by ity of tablet 00:00: 00:00 mouth [place] 00 :00 every 6 Medical (six) Branch hours as needed for N/V unresponsi ve to Ondansetro n. cephALEXin 2021-05- Yes [id number] 500mg Take 1 [facility] 500 mg 05-15 capsule by ity of capsule 00:00: 05:59 mouth 4 [place] 00 :00 (four) Medical times Branch daily for 3 days. cephALEXin 2021-05- Yes [id number] 500mg Take 1 [facility] 500 mg 05-15 capsule by ity of capsule 00:00: 05:59 mouth 4 [place] 00 :00 (four) Medical times Branch daily for 3 days. cephALEXin 2021-05- Yes [id number] 500mg Take 1 [facility] 500 mg 05-15 capsule by ity of capsule 00:00: 05:59 mouth 4 [place] 00 :00 (four) Medical times Branch daily for 3 days. predniSONE 2021-05- Yes [id number] 20mg Take 1 [facility] 20 mg 0-03-15 tablet by ity of tablet 00:00: 04:59 [...] IV ity of PF 16:00: 16:00 Push, [place] injection 00 :00 ONCE, 1 Medical 10 mg dose, On [facility] 03/11/22 at 1100, 1 mL diphenhydrA 2021-05 No 25mg 25 mg, Uni vers MINE 0-30 10-30 Slow IV ity of (BENADRYL) 15:46: 16:00 [place], [place] injection 00 :00 ONCE, 1 Medical 25 mg dose, On [facility] 03/11/22 at 1100, STAT NaCl 0.9% 2021-05 No 1000mL at 999 Uni vers (NS) IV 0-30 10-30 mL/hr, ity of infusion 15:45: 16:04 [place] 1,000 mL 00 :00 s, ONCE, 1 Medic al dose, On [facility] 03/11/22 at 1045, Routine butalbital- 2021-05- No 1{tbl} 1 tablet, Univers acetaminoph 0-30 10-30 Oral, ity of en-caff 15:00: 15:05 ONCE, 1 [place] (ESGIC) 00 :00 dose, On Medical 50-325-40 [place] mg tablet 1 03/11/22 tablet at 1015, [place] ketorolac 2021-05- No 15mg 15 mg, Unive rs (TORADOL) 0-30 10-30 Slow IV ity of injection 14:45: 15:05 Push, [place] 15 mg 00 :00 ONCE, 1 Medical dose, On [facility] 03/11/22 at 0945, [place] proMETHazin 2021-05- No 12.5mg 12.5 mg, Univers e 0-30 10-30 IV ity of (PHENERGAN) 14:45: 15:04 Piggyback, [place] 12.5 mg in 00 :00 ONCE, 1 Medica l NaCl 0.9% dose, On [place] (NS) 50 mL Sun IV 03/11/22 piggyback at 0945, [place] proMETHazin 2021-05 Yes [id number] 25mg Take 1 Univers e 25 mg 0-30 tablet by ity of tablet 00:00: mouth [place] 00 every 6 Medical (six) Branch hours as needed for Nausea and Vomiting (N/V). methocarbam 2021-05 Yes [id number] 500mg Take 1 [facility] oL 500 mg 0-30 tablet by ity o f tablet 00:00: mouth 3 [place] 00 (three) Medical times Branch daily as needed for Pain (scale 7-10). proMETHazin 2021-05 Yes [id number] 25mg Take 1 Univers e 25 mg 0-30 tablet by ity of tablet 00:00: mouth [place] 00 every 6 Medical (six) Branch hours as needed for Nausea and Vomiting (N/V). methocarbam 2021-05 Yes [id number] 500mg Take 1 [facility] oL 500 mg 0-30 tablet by ity o f tablet 00:00: mouth 3 00 (three) Medical times Branch daily as needed for Pain (scale 7-10). proMETHazin 2021-05 Yes [id number] 25mg Take 1 Univers e 25 mg 0-30 tablet by ity of tablet 00:00: mouth [place] 00 every 6 Medical (six) Branch hours as needed for Nausea and Vomiting (N/V). methocarbam 2021-05 Yes [id number] 500mg Take 1 [facility] oL 500 mg 0-30 tablet by ity o f tablet 00:00: mouth 3 00 (three) Medical times Branch daily as needed for Pain (scale 7-10). proMETHazin 2021-05 Yes [id number] 25mg Take 1 Univers e 25 mg 0-30 tablet by ity of tablet 00:00: mouth [place] 00 every 6 Medical (six) Branch hours as needed for Nausea and Vomiting (N/V). methocarbam 2021-05 Yes [id number] 500mg Take 1 [facility] oL 500 mg 0-30 tablet by ity o f tablet 00:00: mouth 3 00 (three) Medical times Branch daily as needed for Pain (scale 7-10). proMETHazin 2021-05 Yes [id number] 25mg Take 1 Univers e 25 mg 0-30 tablet by ity of tablet 00:00: mouth [place] 00 every 6 Medical (six) Branch hours as needed for Nausea and Vomiting (N/V). methocarbam 2021-05 Yes [id number] 500mg Take 1 [facility] oL 500 mg 0-30 tablet by ity o f tablet 00:00: mouth 3 (three) Medical times Branch daily as needed for Pain (scale 7-10). proMETHazin 2021-05 Yes [id number] 25mg Take 1 Univers e 25 mg 0-30 tablet by ity of tablet 00:00: mouth [place] 00 every 6 Medical (six) Branch hours as needed for Nausea and Vomiting (N/V). methocarbam 2021-05 Yes [id number] 500mg Take 1 [facility] oL 500 mg 0-30 tablet by ity o f tablet 00:00: mouth 3 (three) Medical times Branch daily as needed for Pain (scale 7-10). proMETHazin 2021-05 Yes [id number] 25mg Take 1 [facility] e 25 mg 0-30 tablet by ity of tablet 00:00: mouth [place] 00 every 6 Medical (six) Branch hours as needed for Nausea and Vomiting (N/V). methocarbam 2021-05 Yes [id number] 500mg Take 1 Univers oL 500 mg 0-30 tablet by ity o f tablet 00:00: mouth (three) Medical times Branch daily as needed for Pain (scale 7-10). proMETHazin 2021-05 Yes [id number] 25mg Take 1 Univers e 25 mg 0-30 tablet by ity of tablet 00:00: mouth [place] 00 every 6 Medical (six) Branch hours as needed for Nausea and Vomiting (N/V). methocarbam 2021-05 Yes [id number] 500mg Take 1 Univers oL 500 mg 0-30 tablet by ity o f tablet 00:00: mouth (three) Medical times Branch daily as needed for Pain (scale 7-10). proMETHazin 2021-05 Yes [id number] 25mg Take 1 Univers e 25 mg 0-30 tablet by ity of tablet 00:00: mouth [place] 00 every 6 Medical (six) Branch hours as needed for Nausea and Vomiting (N/V). methocarbam 2021-05 Yes [id number] 500mg Take 1 Univers oL 500 mg 0-30 tablet by ity o f tablet 00:00: mouth 3 (three) Medical times Branch daily as needed for Pain (scale 7-10). proMETHazin 2021-05 Yes [id number] 25mg Take 1 Univers e 25 mg 0-30 tablet by ity of tablet 00:00: mouth [place] 00 every 6 Medical (six) Branch hours as needed for Nausea and Vomiting (N/V). methocarbam 2021-05 Yes [id number] 500mg Take 1 Univers oL 500 mg 0-30 tablet by ity o f tablet 00:00: mouth 3 [place] 00 (three) Medical times Branch daily as needed for Pain (scale 7-10). proMETHazin 2021-05 Yes [id number] 25mg Take 1 Univers e 25 mg 0-30 tablet by ity of tablet 00:00: mouth [place] 00 every 6 Medical (six) Branch hours as needed for Nausea and Vomiting (N/V). methocarbam 2021-05 Yes [id number] 500mg Take 1 Univers oL 500 mg 0-30 tablet by ity o f tablet 00:00: mouth 3 [place] 00 (three) Medical times Branch daily as needed for Pain (scale 7-10). proMETHazin 2021-05 Yes [id number] 25mg Take 1 Univers e 25 mg 0-30 tablet by ity of tablet 00:00: mouth [place] 00 every 6 Medical (six) Branch hours as needed for Nausea and Vomiting (N/V). proMETHazin 2021-05 Yes [id number] 25mg Take 1 Univers e 25 mg 0-30 tablet by ity of tablet 00:00: mouth [place] 00 every 6 Medical (six) Branch hours as needed for Nausea and Vomiting (N/V). proMETHazin 2021-05 Yes [id number] 25mg Take 1 Univers e 25 mg 0-30 tablet by ity of tablet 00:00: mouth [place] 00 every 6 Medical (six) Branch hours as needed for Nausea and Vomiting (N/V). proMETHazin 2021-05 Yes [id number] 25mg Take 1 Univers e 25 mg 0-30 tablet by ity of tablet 00:00: mouth [place] 00 every 6 Medical (six) Branch hours as needed for Nausea and Vomiting (N/V). proMETHazin 2021-05 Yes [id number] 25mg Take 1 Univers e 25 mg 0-30 tablet by ity of tablet 00:00: mouth [place] 00 every 6 Medical (six) Branch hours as needed for Nausea and Vomiting (N/V). proMETHazin 2021-05 Yes [id number] 25mg Take 1 Univers e 25 mg 0-30 tablet by ity of tablet 00:00: mouth [place] 00 every 6 Medical (six) Branch hours as needed for Nausea and Vomiting (N/V). proMETHazin 2021-05 Yes [id number] 25mg Take 1 Univers e 25 mg 0-30 tablet by ity of tablet 00:00: mouth [place] 00 every 6 Medical (six) Branch hours as needed for Nausea and Vomiting (N/V). proMETHazin 2021-05 Yes [id number] 25mg Take 1 Univers e 25 mg 0-30 tablet by ity of tablet 00:00: mouth [place] 00 every 6 Medical (six) Branch hours as needed for Nausea and Vomiting (N/V). proMETHazin 2021-05 Yes [id number] 25mg Take 1 Univers e 25 mg 0-30 tablet by ity of tablet 00:00: mouth [place] 00 every 6 Medical (six) Branch hours as needed for Nausea and Vomiting (N/V). proMETHazin 2021-05 Yes [id number] 25mg Take 1 Univers e 25 mg 0-30 tablet by ity of tablet 00:00: mouth [place] 00 every 6 Medical (six) Branch hours as needed for Nausea and Vomiting (N/V). proMETHazin 2021-05 Yes [id number] 25mg Take 1 Univers e 25 mg 0-30 tablet by ity of tablet 00:00: mouth [place] 00 every 6 Medical (six) Branch hours as needed for Nausea and Vomiting (N/V). methocarbam 2021-05- No [id number] 500mg Take 1 Univers oL 500 mg 0-30 11-26 tablet by ity of tablet 00:00: 00:00 mouth 3 [place] 00 :00 (three) Medical times Branch daily as needed for Pain (scale 7-10). topiramate 2021-05 Yes [id number] 100mg Take 4 [facility] 25 mg 0-21 tablets by ity of tablet 00:00: mouth in [place] 00 the Medical morning. Branch topiramate 2021-05 Yes [id number] 100mg Take 4 [facility] 25 mg 0-21 tablets by ity of tablet 00:00: mouth in [place] 00 the Medical morning. Branch topiramate 2021-05 Yes [id number] 100mg Take 4 [facility] 25 mg 0-21 tablets by ity of tablet 00:00: mouth in [place] 00 the Medical morning. Branch topiramate 2-1 Yes [id number] 100mg Take 4 [facility] 25 mg 0-21 tablets by ity of tablet 00:00: mouth in [place] 00 the Medical morning. Branch topiramate 2-1 Yes [id number] 100mg Take 4 [facility] 25 mg 0-21 tablets by ity of tablet 00:00: mouth in [place] 00 the Medical morning. Branch topiramate 2-1 Yes [id number] 100mg Take 4 [facility] 25 mg 0-21 tablets by ity of tablet 00:00: mouth in [place] 00 the Medical morning. Branch topiramate 2-1 Yes [id number] 100mg Take 4 [facility] 25 mg 0-21 tablets by ity of tablet 00:00: mouth in [place] 00 the Medical morning. Branch topiramate 2-1 Yes [id number] 100mg Take 4 [facility] 25 mg 0-21 tablets by ity of tablet 00:00: mouth in [place] 00 the Medical morning. Branch topiramate 2021-1 Yes [id number] 100mg Take 4 [facility] 25 mg 0-21 tablets by ity of tablet 00:00: mouth in [place] the Medical morning. Branch topiramate 2-1 Yes [id number] 100mg Take 4 [facility] 25 mg 0-21 tablets by ity of tablet 00:00: mouth in [place] 00 the Medical morning. Branch topiramate 2-1 Yes [id number] 100mg Take 4 [facility] 25 mg 0-21 tablets by ity of tablet 00:00: mouth in [place] 00 the Medical morning. Branch topiramate 2-1 Yes [id number] 100mg Take 4 [facility] 25 mg 0-21 tablets by ity of tablet 00:00: mouth in [place] the Medical morning. Branch topiramate 2-1 Yes [id number] 100mg Take 4 [facility] 25 mg 0-21 tablets by ity of tablet 00:00: mouth in [place] 00 the Medical morning. Branch topiramate 2022-1 Yes [id number] 100mg Take 4 [facility] 25 mg 0-21 tablets by ity of tablet 00:00: mouth in [place] 00 the Medical morning. Branch topiramate 2022-1 Yes [id number] 100mg Take 4 [facility] 25 mg 0-21 tablets by ity of tablet 00:00: mouth in [place] 00 the Medical morning. Branch topiramate 2022-1 Yes [id number] 100mg Take 4 [facility] 25 mg 0-21 tablets by ity of tablet 00:00: mouth in [place] 00 the Medical morning. Branch topiramate 2021-05 Yes [id number] 100mg Take 4 [facility] 25 mg 0-21 tablets by ity of tablet 00:00: mouth in [place] 00 the Medical morning. Branch topiramate 2021-05 Yes [id number] 100mg Take 4 [facility] 25 mg 0-21 tablets by ity of tablet 00:00: mouth in [place] 00 the Medical morning. Branch topiramate 2021-05 Yes [id number] 100mg Take 4 [facility] 25 mg 0-21 tablets by ity of tablet 00:00: mouth in [place] 00 the Medical morning. Branch topiramate 2021-05 Yes [id number] 100mg Take 4 [facility] 25 mg 0-21 tablets by ity of tablet 00:00: mouth in [place] 00 the Medical morning. Branch topiramate 2021-05 Yes [id number] 100mg Take 4 [facility] 25 mg 0-21 tablets by ity of tablet 00:00: mouth in [place] 00 the Medical morning. Branch topiramate 2021-05 Yes [id number] 100mg Take 4 [facility] 25 mg 0-21 tablets by ity of tablet 00:00: mouth in [place] 00 the Medical morning. Branch topiramate 2021-05 Yes [id number] 100mg Take 4 [facility] 25 mg 0-21 tablets by ity of tablet 00:00: mouth in [place] 00 the Medical morning. Branch diphenhydrA 2021-05- No 25mg Take 25 mg [facility] MINE 25 mg 0-18 10-18 by mouth ity of capsule 09:39: 00:00 every 6 [place] 59 :00 (six) Medical hours as Branch needed for Allergies. diphenhydrA 2021-05- No 25mg Take 25 mg [facility] MINE 25 mg 0-18 10-18 by mouth ity of capsule 09:39: 00:00 every 6 [place] 59 :00 (six) Medical hours as Branch needed for Allergies. diphenhydrA 2021-05- No 25mg Take 25 mg [facility] MINE 25 mg 0-18 10-18 by mouth ity of capsule 09:39: 00:00 every 6 [place] 59 :00 (six) Medical hours as Branch needed for Allergies. diphenhydrA 2021-05- No 25mg Take 25 mg [facility] MINE 25 mg 0-18 10-18 by mouth ity of capsule 09:39: 00:00 every 6 [place] 59 :00 (six) Medical hours as Branch [...] 28 :00 Medical Branch albuterol 2021-05 Yes [id number] 2{puff} Inhale 2 [facility] 90 0-18 Puffs ity of mcg/actuati 00:00: every 6 [place] on inhaler 00 (six) Medical hours as Branch needed for Wheezing or Shortness of Breath. albuterol 2021-05 Yes [id number] 2{puff} Inhale 2 [facility] 90 0-18 Puffs ity of mcg/actuati 00:00: every 6 [place] on inhaler 00 (six) Medical hours as Branch needed for Wheezing or Shortness of Breath. albuterol 2021-05 Yes [id number] 2{puff} Inhale 2 [facility] 90 0-18 Puffs ity of mcg/actuati 00:00: every 6 [place] on inhaler 00 (six) Medical hours as Branch needed for Wheezing or Shortness of Breath. albuterol 2021-05 Yes [id number] 2{puff} Inhale 2 [facility] 90 0-18 Puffs ity of mcg/actuati 00:00: every 6 [place] on inhaler 00 (six) Medical hours as Branch needed for Wheezing or Shortness of Breath. albuterol 2021-05 Yes [id number] 2{puff} Inhale 2 [facility] 90 0-18 Puffs ity of mcg/actuati 00:00: every 6 [place] on inhaler 00 (six) Medical hours as Branch needed for Wheezing or Shortness of Breath. albuterol 2021-05 Yes [id number] 2{puff} Inhale 2 [facility] 90 0-18 Puffs ity of mcg/actuati 00:00: every 6 [place] on inhaler 00 (six) Medical hours as Branch needed for Wheezing or Shortness of Breath. albuterol 2021-05 Yes [id number] 2{puff} Inhale 2 [facility] 90 0-18 Puffs ity of mcg/actuati 00:00: every 6 [place] on inhaler 00 (six) Medical hours as Branch needed for Wheezing or Shortness of Breath. albuterol 2021-05 Yes [id number] 2{puff} Inhale 2 [facility] 90 0-18 Puffs ity of mcg/actuati 00:00: every 6 [place] on inhaler 00 (six) Medical hours as Branch needed for Wheezing or Shortness of Breath. albuterol 2021-05 Yes [id number] 2{puff} Inhale 2 [facility] 90 0-18 Puffs ity of mcg/actuati 00:00: every 6 [place] on inhaler 00 (six) Medical hours as Branch needed for Wheezing or Shortness of Breath. albuterol 2021-05 Yes [id number] 2{puff} Inhale 2 [facility] 90 0-18 Puffs ity of mcg/actuati 00:00: every 6 [place] on inhaler 00 (six) Medical hours as Branch needed for Wheezing or Shortness of Breath. albuterol 2021-05 Yes [id number] 2{puff} Inhale 2 [facility] 90 0-18 Puffs ity of mcg/actuati 00:00: every 6 [place] on inhaler 00 (six) Medical hours as Branch needed for Wheezing or Shortness of Breath. albuterol 2021-05 Yes [id number] 2{puff} Inhale 2 [facility] 90 0-18 Puffs ity of mcg/actuati 00:00: every 6 [place] on inhaler 00 (six) Medical hours as Branch needed for Wheezing or Shortness of Breath. albuterol 2021-05 Yes [id number] 2{puff} Inhale 2 [facility] 90 0-18 Puffs ity of mcg/actuati 00:00: every 6 [place] on inhaler 00 (six) Medical hours as Branch needed for Wheezing or Shortness of Breath. albuterol 2021-05 Yes [id number] 2{puff} Inhale 2 [facility] 90 0-18 Puffs ity of mcg/actuati 00:00: every 6 [place] on inhaler 00 (six) Medical hours as Branch needed for Wheezing or Shortness of Breath. albuterol 2021-05 Yes [id number] 2{puff} Inhale 2 [facility] 90 0-18 Puffs ity of mcg/actuati 00:00: every 6 [place] on inhaler 00 (six) Medical hours as Branch needed for Wheezing or Shortness of Breath. albuterol 2021-05 Yes [id number] 2{puff} Inhale 2 [facility] 90 0-18 Puffs ity of mcg/actuati 00:00: every 6 [place] on inhaler 00 (six) Medical hours as Branch needed for Wheezing or Shortness of Breath. albuterol 2021-05 Yes [id number] 2{puff} Inhale 2 [facility] 90 0-18 Puffs ity of mcg/actuati 00:00: every 6 [place] on inhaler 00 (six) Medical hours as Branch needed for Wheezing or Shortness of Breath. albuterol 2021-05 Yes [id number] 2{puff} Inhale 2 [facility] 90 0-18 Puffs ity of mcg/actuati 00:00: every 6 [place] on inhaler 00 (six) Medical hours as Branch needed for Wheezing or Shortness of Breath. albuterol 2021-05 Yes [id number] 2{puff} Inhale 2 [facility] 90 0-18 Puffs ity of mcg/actuati 00:00: every 6 [place] on inhaler 00 (six) Medical hours as Branch needed for Wheezing or Shortness of Breath. albuterol 2021-05 Yes [id number] 2{puff} Inhale 2 [facility] 90 0-18 Puffs ity of mcg/actuati 00:00: every 6 [place] on inhaler 00 (six) Medical hours as Branch needed for Wheezing or Shortness of Breath. albuterol 2021-05 Yes [id number] 2{puff} Inhale 2 [facility] 90 0-18 Puffs ity of mcg/actuati 00:00: every 6 [place] on inhaler 00 (six) Medical hours as Branch needed for Wheezing or Shortness of Breath. albuterol 2021-05 Yes [id number] 2{puff} Inhale 2 [facility] 90 0-18 Puffs ity of mcg/actuati 00:00: every 6 [place] on inhaler 00 (six) Medical hours as Branch needed for Wheezing or Shortness of Breath. albuterol 2021-05 Yes [id number] 2{puff} Inhale 2 [facility] 90 0-18 Puffs ity of mcg/actuati 00:00: every 6 [place] on inhaler 00 (six) Medical hours as Branch needed for Wheezing or Shortness of Breath. albuterol 2021-05 Yes [id number] 2{puff} Inhale 2 [facility] 90 0-18 Puffs ity of mcg/actuati 00:00: every 6 [place] on inhaler 00 (six) Medical hours as Branch needed for Wheezing or Shortness of Breath. albuterol 2021-05 Yes [id number] 2{puff} Inhale 2 [facility] 90 0-18 Puffs ity of mcg/actuati 00:00: every 6 [place] on inhaler 00 (six) Medical hours as Branch needed for Wheezing or Shortness of Breath. albuterol 2021-05 Yes [id number] 2{puff} Inhale 2 [facility] 90 0-18 Puffs ity of mcg/actuati 00:00: every 6 [place] on inhaler 00 (six) Medical hours as Branch needed for Wheezing or Shortness of Breath. albuterol 2021-05 Yes [id number] 2{puff} Inhale 2 [facility] 90 0-18 Puffs ity of mcg/actuati 00:00: every 6 [place] on inhaler 00 (six) Medical hours as Branch needed for Wheezing or Shortness of Breath. albuterol 2021-05 Yes [id number] 2{puff} Inhale 2 [facility] 90 0-18 Puffs ity of mcg/actuati 00:00: every 6 [place] on inhaler 00 (six) Medical hours as Branch needed for Wheezing or Shortness of Breath. SUMAtriptan 2021-05- No 50mg Take 50 mg [facility] 50 mg 0-18 - by mouth ity of tablet 00:00: 00:00 as needed [place] 00 :00 for Medical Migraine. Branch Take one tablet at onset of migraine, may take another tablet 2 hours after initial dose if no relief with first dose. DO NOT EXCEED 100mg in a 24 hour period. benzonatate 2021-05- Yes [id number] 200mg Take 1 [facility] 200 mg 0-18 10-26 capsule by ity of capsule 00:00: 04:59 mouth 3 [place] 00 :00 (three) Medical times Branch daily as needed for Cough for up to 7 days. benzonatate 2021-05- Yes [id number] 200mg Take 1 [facility] 200 mg 0-18 10-26 capsule by ity of capsule 00:00: 04:59 mouth 3 [place] 00 :00 (three) Medical times Branch daily as needed for Cough for up to 7 days. benzonatate 2021-05- Yes [id number] 200mg Take 1 [facility] 200 mg 0-18 10-26 capsule by ity of capsule 00:00: 04:59 mouth 3 [place] 00 :00 (three) Medical times Branch daily as needed for Cough for up to 7 days. benzonatate 2021-05- Yes [id number] 200mg Take 1 [facility] 200 mg 0-18 10-26 capsule by ity of capsule 00:00: 04:59 mouth 3 [place] 00 :00 (three) Medical times Branch daily as needed for Cough for up to 7 days. benzonatate 2021-05- Yes [id number] 200mg Take 1 [facility] 200 mg 0-18 - capsule by ity of capsule 00:00: 04:59 mouth 3 [place] 00 :00 (three) Medical times Lovely daily as needed for Cough for up to 7 days. benzonatate 2021-05- Yes [id number] 200mg Take 1 [facility] 200 mg 0-18 - capsule by ity of capsule 00:00: 04:59 mouth 3 [place] 00 :00 (three) Medical times Branch daily as needed for Cough for up to 7 days. SUMAtriptan 2021-05- Yes [id number] 50mg Take 1 [facility] 50 mg 0-18 - 9105 tablet by ity of tablet 00:00: 04:59 mouth [place] 00 :00 now for 1 Medical dose. Branch SUMAtriptan 2021-05- Yes [id number] 50mg Take 1 [facility] 50 mg 0-18 - 9105 tablet by ity of tablet 00:00: 04:59 mouth [place] 00 :00 now for 1 Medical dose. Branch butalbital- 2021-05- No 1{tbl} 1 tablet, [facility] acetaminoph 0-12 10-12 Oral, ity of en-caff 08:15: 08:09 ONCE, 1 [place] (ESGIC) 00 :00 dose, On Medical 50-325-40 Wed Branch mg tablet 1 02/21/22 tablet at 0315, [place] butorphanol 2021-05- No 1mg 1 mg, IV U nivers (STADOL) 0-12 10-12 Push, ity of injection 1 08:15: 07:28 ONCE, 1 [place] mg 00 :00 dose, On Medical Wed Branch 02/21/22 at 0315, Routine NaCl 0.9% 2021-05- No 1000mL at 999 Uni vers (NS) bolus 0-12 10-12 mL/hr, ity of infusion 07:15: 08:40 1,000 mL, [place] as 1,000 mL 00 :00 IV Medical Infusion, Branch ONCE, 1 dose, On 02/21/22 at 0215, [place] proMETHazin 2021-05- No [...] Medical dose, On Branch 02/21/22 at 0130, [place] diphenhydrA 2021-05 No 25mg 25 mg, Uni vers MINE 02-21 Slow IV ity of (BENADRYL) 06:30: 06:38 Push, [place] injection 00 :00 ONCE, 1 Medical 25 mg dose, On Branch 02/21/22 at 0130, STAT FENTanyl PF 2021-05 No 50ug 50 mcg, Un sushant (SUBLIMAZE 002-18 Slow IV ity o f (PF)) 20:30: 19:44 Push, [place] injection 00 :00 ONCE, 1 Medical 50 mcg dose, On Branch [place] 02/18/22 at 1530, Routine ketorolac 2021-05 No 30mg 30 mg, Unive rs (TORADOL) 002-18 Slow IV ity of injection 20:15: 20:09 Push, [place] 30 mg 00 :00 ONCE, 1 Medical dose, On Branch 02/18/22 at 1515, [place] iopamidol 2021-05- No 60mL 60 mL, Un sushant (ISOVUE 0- Intravenou ity o f 370-500 mL) 19:30: 17:30 s, ONCE, 1 [place] injection 00 :00 dose, On Medica l 60 mL Sun Branch 02/18/22 at 1430, Routine proMETHazin 2021-05 No 12.5mg 12.5 mg, Univers e 002-18 IV ity of (PHENERGAN) 18:15: 18:19 Piggyback, [...] 1 Medical 50 mcg dose, On Branch [place] 02/18/22 at 1300, Routine ondansetron 2021-05- No 4mg 4 mg, Slow [facility] (ZOFRAN 02-18 IV Push, ity of (PF)) 17:15: 17:27 ONCE, 1 [place] injection 4 00 :00 dose, On Medi yessi mg [facility] 02/18/22 at 1215, [place] morpHINE (2 2021- No 4mg 4 mg, Slow Univers mg/mL) 01-18 IV Push, ity of injection 4 15:15: 14:49 ONCE, 1 [place] mg 00 :00 dose, On Medical [facility] 01/18/22 Branch at 1015, STAT ondansetron 2021- No 4mg 4 mg, Slow [facility] (ZOFRAN 01-18 IV Push, ity of (PF)) 13:30: 13:33 ONCE, 1 [place] injection 4 00 :00 dose, On Medi yessi mg [facility] 01/18/22 Branch at 0830, [place] morpHINE (4 2021-2021- No 4mg 4 mg, Slow Univers mg/mL) 01-18 IV Push, ity of injection 4 13:30: 13:34 ONCE, 1 [place] mg 00 :00 dose, On Medical [facility] 01/18/22 Branch at 0830, STAT morpHINE (4 2021-0 2021- No 4mg 4 mg, Slow [facility] mg/mL) 01-18 IV Push, ity of injection 4 12:30: 11:39 ONCE, 1 [place] mg 00 :00 dose, On Medical [place] 01/18/22 Branch at 0730, STAT famotidine 2021- [...] Branch at 0630, [place] iodixanoL 2021- No [id number] 80mL 80 mL, U nivers (VISIPAQUE 01-18 [...] 01/18/22 Branch at 0545, STAT traMADoL 50 Yes [id number] 50mg Take 1 Univ ers mg tablet 01-18 tablet by ity o f 00:00: mouth [place] 00 every 6 Medical (six) Branch hours as needed for Pain (scale 7-10). Indication s: acute pain ondansetron 0 Yes [id number] 4mg Take 1 [facility] 4 mg 9-08 [id number] tablet by ity of disintegrat 00:00: mouth [place] ing tablet 00 every 8 Medica l (eight) Branch hours as needed for Nausea and Vomiting (N/V). ibuprofen 2022-0 Yes [id number] 600mg Take 1 [facility] 600 mg 9-08 [id number] tablet by ity of tablet 00:00: mouth [place] 00 every 6 Medical (six) Branch hours as needed for Pain (scale 4-6). traMADoL 50 2-0 Yes [id number] 50mg Take 1 Univ ers mg tablet 9-08 tablet by ity o f 00:00: mouth [place] 00 every 6 Medical (six) Branch hours as needed for Pain (scale 7-10). Indication s: acute pain ondansetron 2-0 Yes [id number] 4mg Take 1 [facility] 4 mg 9-08 [id number] tablet by ity of disintegrat 00:00: mouth [place] ing tablet 00 every 8 Medica l (eight) Branch hours as needed for Nausea and Vomiting (N/V). ibuprofen 2-0 Yes [id number] 600mg Take 1 [facility] 600 mg 9-08 [id number] tablet by ity of tablet 00:00: mouth [place] 00 every 6 Medical (six) Branch hours as needed for Pain (scale 4-6). traMADoL 50 2-0 Yes [id number] 50mg Take 1 Univ ers mg tablet 9-08 tablet by ity o f 00:00: mouth [place] 00 every 6 Medical (six) Branch hours as needed for Pain (scale 7-10). Indication s: acute pain ondansetron 2-0 Yes [id number] 4mg Take 1 [facility] 4 mg 9-08 [id number] tablet by ity of disintegrat 00:00: mouth [place] ing tablet 00 every 8 Medica l (eight) Branch hours as needed for Nausea and Vomiting (N/V). ibuprofen 2022-0 Yes [id number] 600mg Take 1 [facility] 600 mg 9-08 [id number] tablet by ity of tablet 00:00: mouth [place] 00 every 6 Medical (six) Branch hours as needed for Pain (scale 4-6). traMADoL 50 2022-0 Yes [id number] 50mg Take 1 Univ ers mg tablet 9-08 tablet by ity o f 00:00: mouth [place] 00 every 6 Medical (six) Branch hours as needed for Pain (scale 7-10). Indication s: acute pain ondansetron 2022-0 Yes [id number] 4mg Take 1 [facility] 4 mg 9-08 [id number] tablet by ity of disintegrat 00:00: mouth [place] ing tablet 00 every 8 Medica l (eight) Branch hours as needed for Nausea and Vomiting (N/V). ibuprofen 2-0 Yes [id number] 600mg Take 1 [facility] 600 mg 9-08 [id number] tablet by ity of tablet 00:00: mouth [place] 00 every 6 Medical (six) Branch hours as needed for Pain (scale 4-6). traMADoL 50 2021-0 Yes [id number] 50mg Take 1 Univ ers mg tablet 9-08 tablet by ity o f 00:00: mouth [place] 00 every 6 Medical (six) Branch hours as needed for Pain (scale 7-10). Indication s: acute pain ondansetron 2021-0 Yes [id number] 4mg Take 1 [facility] 4 mg 9-08 [id number] tablet by ity of disintegrat 00:00: mouth [place] ing tablet 00 every 8 Medica l (eight) Branch hours as needed for Nausea and Vomiting (N/V). ibuprofen 2021-0 Yes [id number] 600mg Take 1 [facility] 600 mg 9-08 [id number] tablet by ity of tablet 00:00: mouth [place] 00 every 6 Medical (six) Branch hours as needed for Pain (scale 4-6). traMADoL 50 2021-0 Yes [id number] 50mg Take 1 Univ ers mg tablet 9-08 tablet by ity o f 00:00: mouth [place] 00 every 6 Medical (six) Branch hours as needed for Pain (scale 7-10). Indication s: acute pain ondansetron 2-0 Yes [id number] 4mg Take 1 [facility] 4 mg 9-08 [id number] tablet by ity of disintegrat 00:00: mouth [place] ing tablet 00 every 8 Medica l (eight) Branch hours as needed for Nausea and Vomiting (N/V). ibuprofen 2022-0 Yes [id number] 600mg Take 1 [facility] 600 mg 9-08 [id number] tablet by ity of tablet 00:00: mouth [place] 00 every 6 Medical (six) Branch hours as needed for Pain (scale 4-6). traMADoL 50 2021-0 Yes [id number] 50mg Take 1 Univ ers mg tablet 9-08 tablet by ity o f 00:00: mouth [place] 00 every 6 Medical (six) Branch hours as needed for Pain (scale 7-10). Indication s: acute pain ondansetron 2021-0 Yes [id number] 4mg Take 1 Univers 4 mg - [id number] tablet by ity of disintegrat 00:00: mouth [place] ing tablet 00 every 8 Medica l (eight) Branch hours as needed for Nausea and Vomiting (N/V). ibuprofen 2021-0 Yes [id number] 600mg Take 1 [facility] 600 mg - [id number] tablet by ity of tablet 00:00: mouth [place] 00 every 6 Medical (six) Branch hours as needed for Pain (scale 4-6). traMADoL 50 2021-0 Yes [id number] 50mg Take 1 Univ ers mg tablet 01-18 tablet by ity o f 00:00: mouth [place] 00 every 6 Medical (six) Branch hours as needed for Pain (scale 7-10). Indication s: acute pain ondansetron 2021-0 Yes [id number] 4mg Take 1 [facility] 4 mg - [id number] tablet by ity of disintegrat 00:00: mouth [place] ing tablet 00 every 8 Medica l (eight) Branch hours as needed for Nausea and Vomiting (N/V). ibuprofen 2021-0 Yes [id number] 600mg Take 1 [facility] 600 mg 01-18 [id number] tablet by ity of tablet 00:00: mouth [place] 00 every 6 Medical (six) Branch hours as needed for Pain (scale 4-6). traMADoL 50 2021-0 2022- No [id number] 50mg Take 1 Uni vers mg tablet 01-1818 tablet by ity of 00:00: 00:00 mouth [place] 00 :00 every 6 Medical (six) Branch hours as needed for Pain (scale 7-10). Indication s: acute pain ondansetron 2021-0 2022- No [id number] 4mg Take 1 [facility] 4 mg -02-27 [id number] tablet by ity of disintegrat 00:00: 00:00 mouth [place] ing tablet 00 :00 every 8 Medica l (eight) Branch hours as needed for Nausea and Vomiting (N/V). ibuprofen 2021-0 2022- No [id number] 600mg Take 1 [facility] 600 mg -02-27 [id number] tablet by ity o f tablet 00:00: 00:00 mouth [place] 00 :00 every 6 Medical (six) Branch hours as needed for Pain (scale 4-6). traMADoL 50 2021-2021- No [id number] 50mg Take 1 Uni vers mg tablet 9-12 20-18 tablet by ity of 00:00: 00:00 mouth [place] 00 :00 every 6 Medical (six) Branch hours as needed for Pain (scale 7-10). Indication s: acute pain ondansetron 2021-2021- No [id number] 4mg Take 1 [facility] 4 mg 9-12 20- [id number] tablet by ity of disintegrat 00:00: 00:00 mouth [place] ing tablet 00 :00 every 8 Medica l (eight) Branch hours as needed for Nausea and Vomiting (N/V). ibuprofen 2021-2021- No [id number] 600mg Take 1 [facility] 600 mg -02-27 [id number] tablet by ity o f tablet 00:00: [...] Indication s: acute pain ondansetron 2021-2021- No [id number] 4mg Take 1 [facility] 4 mg -02-27 [id number] tablet by ity of disintegrat 00:00: 00:00 mouth [place] ing tablet 00 :00 every 8 Medica l (eight) Branch hours as needed for Nausea and Vomiting (N/V). ibuprofen 2021-2021- No [id number] 600mg Take 1 [facility] 600 mg 9-02-27 [id number] tablet by ity o f tablet 00:00: 00:00 mouth [place] 00 :00 every 6 Medical (six) Branch hours as needed for Pain (scale 4-6). traMADoL 50 2021-2021- No [id number] 50mg Take 1 Uni vers mg tablet -12 20-18 tablet by ity of 00:00: 00:00 mouth [place] 00 :00 every 6 Medical (six) Branch hours as needed for Pain (scale 7-10). Indication s: acute pain ondansetron 2021- No [id number] 4mg Take 1 [facility] 4 mg 01-18 [id number] tablet by ity of disintegrat 00:00: 00:00 mouth [place] ing tablet 00 :00 every 8 Medica l (eight) Branch hours as needed for Nausea and Vomiting (N/V). ibuprofen 2021- No [id number] 600mg Take 1 [facility] 600 mg 01-18 [id number] tablet by ity o f tablet 00:00: 00:00 mouth [place] 00 :00 every 6 Medical (six) Branch hours as needed for Pain (scale 4-6). predniSONE 2021- No [id number] 40mg Take 2 [facility] 20 mg 01-16 tablets by ity of tablet 00:00: 04:59 mouth in [place] 00 :00 the Medical morning Branch for 7 days. predniSONE 2021-2021- No [id number] 40mg Take 2 [facility] 20 mg 01-16 tablets by ity of tablet 00:00: 04:59 mouth in [place] 00 :00 [facility] Branch for 7 days. morpHINE (4 2021- No 4mg 4 mg, Slow Univers mg/mL) 01-15 IV Push, ity of injection 4 16:15: 15:28 ONCE, 1 [place] mg 00 :00 dose, On Medical 01/15/22 Branch at 1115, [place] proMETHazin No 12.5mg 12.5 mg, Univers e 01-15 IV ity of (PHENERGAN) 15:30: 15:28 Piggyback, [place] 12.5 mg in 00 :00 ONCE, 1 [...] Branch 01/15/22 at 0915, 1 mL proMETHazin 0 Yes [id number] 25mg Take 1 Univers e 25 mg 9-05 tablet by ity of tablet 00:00: mouth [place] 00 every 6 Medical (six) Branch hours as needed for Nausea and Vomiting (N/V). proMETHazin 2021-0 Yes [id number] 25mg Take 1 Univers e 25 mg 9-05 tablet by ity of tablet 00:00: mouth [place] 00 every 6 Medical (six) Branch hours as needed for Nausea and Vomiting (N/V). proMETHazin 2021-0 Yes [id number] 25mg Take 1 Univers e 25 mg 9-05 tablet by ity of tablet 00:00: mouth [place] 00 every 6 Medical (six) Branch hours as needed for Nausea and Vomiting (N/V). proMETHazin 2021-0 Yes [id number] 25mg Take 1 Univers e 25 mg 9-05 tablet by ity of tablet 00:00: mouth [place] 00 every 6 Medical (six) Branch hours as needed for Nausea and Vomiting (N/V). proMETHazin 2021-0 Yes [id number] 25mg Take 1 Univers e 25 mg 9-05 tablet by ity of tablet 00:00: mouth [place] 00 every 6 Medical (six) Branch hours as needed for Nausea and Vomiting (N/V). proMETHazin 2022-0 Yes [id number] 25mg Take 1 Univers e 25 mg 9-05 tablet by ity of tablet 00:00: mouth [place] 00 every 6 Medical (six) Branch hours as needed for Nausea and Vomiting (N/V). proMETHazin Yes [id number] 25mg Take 1 Univers e 25 mg 9-05 tablet by ity of tablet 00:00: mouth [place] 00 every 6 Medical (six) Branch hours as needed for Nausea and Vomiting (N/V). proMETHazin Yes [id number] 25mg Take 1 Univers e 25 mg 9-05 tablet by ity of tablet 00:00: mouth [place] 00 every 6 Medical (six) Branch hours as needed for Nausea and Vomiting (N/V). proMETHazin Yes [id number] 25mg Take 1 Univers e 25 mg 9-05 tablet by ity of tablet 00:00: mouth [place] 00 every 6 Medical (six) Branch hours as needed for Nausea and Vomiting (N/V). proMETHazin 2021- No [id number] 25mg Take 1 Univers e 25 mg 9-05 10-18 tablet by ity of tablet 00:00: 00:00 mouth [place] 00 :00 every 6 Medical (six) Branch hours as needed for Nausea and Vomiting (N/V). proMETHazin 2021- No [id number] 25mg Take 1 Univers e 25 mg 9-05 10-18 tablet by ity of tablet 00:00: 00:00 mouth [place] 00 :00 every 6 Medical (six) Branch hours as needed for Nausea and Vomiting (N/V). proMETHazin 2021- No [id number] 25mg Take 1 Univers e 25 mg 9-05 10-18 tablet by ity of tablet 00:00: 00:00 mouth [place] 00 :00 every 6 Medical (six) Branch hours as needed for Nausea and Vomiting (N/V). proMETHazin 2021- No [id number] 25mg Take 1 Univers e 25 mg 9-05 10-18 tablet by ity of tablet 00:00: 00:00 mouth [place] 00 :00 every 6 Medical (six) Branch hours as needed for Nausea and Vomiting (N/V). ondansetron 2021- No 4mg 4 mg, Univ ers (ZOFRAN-ODT 8-30 08-30 Oral, ity of ) 01:45: 00:56 ONCE, 1 [place] disintegrat 00 :00 dose, On Medi yessi ing tablet Mon Branch 4 mg 01/08/22 at 2045, Routine HYDROcodone 202- No 1{tbl} 1 tablet, Univers -acetaminop 01-09 [...] 1 Medical 25 mg dose, On [facility] 01/08/22 at 1845, STAT dexamethaso 2021- No 10mg 10 mg, Uni vers ne sod phos 01-08 Slow IV ity of PF 23:45: 23:50 Push, [place] injection 00 :00 ONCE, 1 Medical 10 mg dose, On Branch [facility] 01/08/22 at 1845, 1 mL ketorolac 2021- No 30mg 30 mg, Unive rs (TORADOL) 01-08 Slow IV ity of injection 23:45: 23:51 [place], [place] 30 mg 00 :00 ONCE, 1 Medical dose, On Branch [facility] 01/08/22 at 1845, [place] ondansetron Yes [id number] 4mg Take 1 [facility] 4 mg 8-29 tablet by ity of disintegrat 00:00: mouth [place] ing tablet 00 every 8 Medica l (eight) Branch hours as needed for Nausea and Vomiting (N/V). acetaminoph 0 Yes [id number] 650mg Take 1 Univers en (TYLENOL 8-29 tablet by ity of ARTHRITIS 00:00: mouth [place] PAIN) 650 00 every 8 Medical mg CR (eight) Branch tablet hours as needed for Pain. ketorolac 0 Yes [id number] 10mg Take 1 U nivers 10 mg 8-29 tablet by ity of tablet 00:00: mouth [place] 00 every 6 Medical (six) Branch hours as needed for Pain (scale 4-6) or Pain (scale 7-10). metaxalone 2022-0 Yes [id number] 800mg Take 1 Univers (SKELAXIN) 8-29 tablet by ity of 800 mg 00:00: mouth in [place] tablet 00 the Medical morning Branch and 1 tablet at noon and 1 tablet in the evening. ondansetron 2022-0 Yes [id number] 4mg Take 1 [facility] 4 mg 8-29 tablet by ity of disintegrat 00:00: mouth [place] ing tablet 00 every 8 Medica l (eight) Branch hours as needed for Nausea and Vomiting (N/V). acetaminoph 2022-0 Yes [id number] 650mg Take 1 Univers en (TYLENOL 8-29 tablet by ity of ARTHRITIS 00:00: mouth [place] PAIN) 650 00 every 8 Medical mg CR (eight) Branch tablet hours as needed for Pain. ketorolac 2022-0 Yes [id number] 10mg Take 1 U nivers 10 mg 8-29 tablet by ity of tablet 00:00: mouth [place] 00 every 6 Medical (six) Branch hours as needed for Pain (scale 4-6) or Pain (scale 7-10). metaxalone 2-0 Yes [id number] 800mg Take 1 [facility] (SKELAXIN) 8-29 tablet by ity of 800 mg 00:00: mouth in [place] tablet 00 the Medical morning Branch and 1 tablet at noon and 1 tablet in the evening. ondansetron 2-0 Yes [id number] 4mg Take 1 [facility] 4 mg 8-29 tablet by ity of disintegrat 00:00: mouth [place] ing tablet 00 every 8 Medica l (eight) Branch hours as needed for Nausea and Vomiting (N/V). acetaminoph 2-0 Yes [id number] 650mg Take 1 Univers en (TYLENOL 8-29 tablet by ity of ARTHRITIS 00:00: mouth [place] PAIN) 650 00 every 8 Medical mg CR (eight) Branch tablet hours as needed for Pain. ketorolac 2022-0 Yes [id number] 10mg Take 1 U nivers 10 mg 8-29 tablet by ity of tablet 00:00: mouth [place] 00 every 6 Medical (six) Branch hours as needed for Pain (scale 4-6) or Pain (scale 7-10). metaxalone 2022-0 Yes [id number] 800mg Take 1 [facility] (SKELAXIN) 8-29 tablet by ity of 800 mg 00:00: mouth in [place] tablet 00 the Medical morning Branch and 1 tablet at noon and 1 tablet in the evening. ondansetron 2022-0 Yes [id number] 4mg Take 1 [facility] 4 mg 8-29 tablet by ity of disintegrat 00:00: mouth [place] ing tablet 00 every 8 Medica l (eight) Branch hours as needed for Nausea and Vomiting (N/V). acetaminoph 2022-0 Yes [id number] 650mg Take 1 Univers en (TYLENOL 8-29 tablet by ity of ARTHRITIS 00:00: mouth [place] PAIN) 650 00 every 8 Medical mg CR (eight) Branch tablet hours as needed for Pain. ketorolac 2022-0 Yes [id number] 10mg Take 1 U nivers 10 mg 8-29 tablet by ity of tablet 00:00: mouth [place] 00 every 6 Medical (six) Branch hours as needed for Pain (scale 4-6) or Pain (scale 7-10). metaxalone 2-0 Yes [id number] 800mg Take 1 Univers (SKELAXIN) 8-29 tablet by ity of 800 mg 00:00: mouth in [place] tablet 00 the Medical morning Branch and 1 tablet at noon and 1 tablet in the evening. ondansetron 2-0 Yes [id number] 4mg Take 1 [facility] 4 mg 8-29 tablet by ity of disintegrat 00:00: mouth [place] ing tablet 00 every 8 Medica l (eight) Branch hours as needed for Nausea and Vomiting (N/V). acetaminoph 2-0 Yes [id number] 650mg Take 1 Univers en (TYLENOL 8-29 tablet by ity of ARTHRITIS 00:00: mouth [place] PAIN) 650 00 every 8 Medical mg CR (eight) Branch tablet hours as needed for Pain. ketorolac 2022-0 Yes [id number] 10mg Take 1 U nivers 10 mg 8-29 tablet by ity of tablet 00:00: mouth [place] 00 every 6 Medical (six) Branch hours as needed for Pain (scale 4-6) or Pain (scale 7-10). metaxalone 2022-0 Yes [id number] 800mg Take 1 Univers (SKELAXIN) 8-29 tablet by ity of 800 mg 00:00: mouth in [place] tablet 00 the Medical morning Branch and 1 tablet at noon and 1 tablet in the evening. ondansetron 2022-0 Yes [id number] 4mg Take 1 Univers 4 mg 8-29 tablet by ity of disintegrat 00:00: mouth [place] ing tablet 00 every 8 Medica l (eight) Branch hours as needed for Nausea and Vomiting (N/V). acetaminoph 2022-0 Yes [id number] 650mg Take 1 [facility] en (TYLENOL 8-29 tablet by ity of ARTHRITIS 00:00: mouth [place] PAIN) 650 00 every 8 Medical mg CR (eight) Branch tablet hours as needed for Pain. ketorolac 2022-0 Yes [id number] 10mg Take 1 U nivers 10 mg 8-29 tablet by ity of tablet 00:00: mouth [place] 00 every 6 Medical (six) Branch hours as needed for Pain (scale 4-6) or Pain (scale 7-10). metaxalone 2022-0 Yes [id number] 800mg Take 1 Univers (SKELAXIN) 8-29 tablet by ity of 800 mg 00:00: mouth in [place] tablet 00 the Medical morning Branch and 1 tablet at noon and 1 tablet in the evening. ondansetron 2-0 Yes [id number] 4mg Take 1 [facility] 4 mg 8-29 tablet by ity of disintegrat 00:00: mouth [place] ing tablet 00 every 8 Medica l (eight) Branch hours as needed for Nausea and Vomiting (N/V). acetaminoph 2022-0 Yes [id number] 650mg Take 1 [facility] en (TYLENOL 8-29 tablet by ity of ARTHRITIS 00:00: mouth [place] PAIN) 650 00 every 8 Medical mg CR (eight) Branch tablet hours as needed for Pain. ketorolac 2022-0 Yes [id number] 10mg Take 1 U nivers 10 mg 8-29 tablet by ity of tablet 00:00: mouth [place] 00 every 6 Medical (six) Branch hours as needed for Pain (scale 4-6) or Pain (scale 7-10). metaxalone 2022-0 Yes [id number] 800mg Take 1 [facility] (SKELAXIN) 8-29 tablet by ity of 800 mg 00:00: mouth in [place] tablet 00 the Medical morning Branch and 1 tablet at noon and 1 tablet in the evening. ondansetron 2022-0 Yes [id number] 4mg Take 1 [facility] 4 mg 8-29 tablet by ity of disintegrat 00:00: mouth [place] ing tablet 00 every 8 Medica l (eight) Branch hours as needed for Nausea and Vomiting (N/V). acetaminoph 2022-0 Yes [id number] 650mg Take 1 [facility] en (TYLENOL 8-29 tablet by ity of ARTHRITIS 00:00: mouth [place] PAIN) 650 00 every 8 Medical mg CR (eight) Branch tablet hours as needed for Pain. ketorolac 2022-0 Yes [id number] 10mg Take 1 U nivers 10 mg 8-29 tablet by ity of tablet 00:00: mouth [place] 00 every 6 Medical (six) Branch hours as needed for Pain (scale 4-6) or Pain (scale 7-10). metaxalone 2022-0 Yes [id number] 800mg Take 1 Univers (SKELAXIN) 8-29 tablet by ity of 800 mg 00:00: mouth in [place] tablet 00 the Medical morning Branch and 1 tablet at noon and 1 tablet in the evening. ondansetron 2-0 Yes [id number] 4mg Take 1 [facility] 4 mg 8-29 tablet by ity of disintegrat 00:00: mouth [place] ing tablet 00 every 8 Medica l (eight) Branch hours as needed for Nausea and Vomiting (N/V). acetaminoph 2022-0 Yes [id number] 650mg Take 1 [facility] en (TYLENOL 8-29 tablet by ity of ARTHRITIS 00:00: mouth [place] PAIN) 650 00 every 8 Medical mg CR (eight) Branch tablet hours as needed for Pain. ketorolac 2022-0 Yes [id number] 10mg Take 1 U nivers 10 mg 8-29 tablet by ity of tablet 00:00: mouth [place] 00 every 6 Medical (six) Branch hours as needed for Pain (scale 4-6) or Pain (scale 7-10). metaxalone 2022-0 Yes [id number] 800mg Take 1 Univers (SKELAXIN) 8-29 tablet by ity of 800 mg 00:00: mouth in [place] tablet 00 the Medical morning Branch and 1 tablet at noon and 1 tablet in the evening. ondansetron 2021-0 Yes [id number] 4mg Take 1 Univers 4 mg 8-29 tablet by ity of disintegrat 00:00: mouth [place] ing tablet 00 every 8 Medica l (eight) Branch hours as needed for Nausea and Vomiting (N/V). acetaminoph 2021-0 Yes [id number] 650mg Take 1 Univers en (TYLENOL 8-29 tablet by ity of ARTHRITIS 00:00: mouth [place] PAIN) 650 00 every 8 Medical mg CR (eight) Branch tablet hours as needed for Pain. ketorolac 2021-0 Yes [id number] 10mg Take 1 U nivers 10 mg 8-29 tablet by ity of tablet 00:00: mouth [place] 00 every 6 Medical (six) Branch hours as needed for Pain (scale 4-6) or Pain (scale 7-10). metaxalone 2021-0 Yes [id number] 800mg Take 1 Univers (SKELAXIN) 8-29 tablet by ity of 800 mg 00:00: mouth in [place] tablet 00 the Medical morning Branch and 1 tablet at noon and 1 tablet in the evening. acetaminoph 2021-0 Yes [id number] 650mg Take 1 [facility] en (TYLENOL 8-29 tablet by ity of ARTHRITIS 00:00: mouth [place] PAIN) 650 00 every 8 Medical mg CR (eight) Branch tablet hours as needed for Pain. acetaminoph 2021-0 Yes [id number] 650mg Take 1 [facility] en (TYLENOL 8-29 tablet by ity of ARTHRITIS 00:00: mouth [place] PAIN) 650 00 every 8 Medical mg CR (eight) Branch tablet hours as needed for Pain. acetaminoph 2021-0 Yes [id number] 650mg Take 1 [facility] en (TYLENOL 8-29 tablet by ity of ARTHRITIS 00:00: mouth [place] PAIN) 650 00 every 8 Medical mg CR (eight) Branch tablet hours as needed for Pain. acetaminoph 2021-0 Yes [id number] 650mg Take 1 [facility] en (TYLENOL 8-29 tablet by ity of ARTHRITIS 00:00: mouth [place] PAIN) 650 00 every 8 Medical mg CR (eight) Branch tablet hours as needed for Pain. acetaminoph 2021-0 Yes [id number] 650mg Take 1 [facility] en (TYLENOL 8-29 tablet by ity of ARTHRITIS 00:00: mouth [place] PAIN) 650 00 every 8 Medical mg CR (eight) Branch tablet hours as needed for Pain. acetaminoph 2021-0 Yes [id number] 650mg Take 1 [facility] en (TYLENOL 8-29 tablet by ity of ARTHRITIS 00:00: mouth [place] PAIN) 650 00 every 8 Medical mg CR (eight) Branch tablet hours as needed for Pain. acetaminoph 2021-0 Yes [id number] 650mg Take 1 [facility] en (TYLENOL 8-29 tablet by ity of ARTHRITIS 00:00: mouth [place] PAIN) 650 00 every 8 Medical mg CR (eight) Branch tablet hours as needed for Pain. acetaminoph 0 Yes [id number] 650mg Take 1 [facility] en (TYLENOL 8-29 tablet by ity of ARTHRITIS 00:00: mouth [place] PAIN) 650 00 every 8 Medical mg CR (eight) Branch tablet hours as needed for Pain. acetaminoph 0 Yes [id number] 650mg Take 1 [facility] en (TYLENOL 8-29 tablet by ity of ARTHRITIS 00:00: mouth [place] PAIN) 650 00 every 8 Medical mg CR (eight) Branch tablet hours as needed for Pain. acetaminoph 0 Yes [id number] 650mg Take 1 [facility] en (TYLENOL 8-29 tablet by ity of ARTHRITIS 00:00: mouth [place] PAIN) 650 00 every 8 Medical mg CR (eight) Branch tablet hours as needed for Pain. acetaminoph 0 Yes [id number] 650mg Take 1 [facility] en (TYLENOL 8-29 tablet by ity of ARTHRITIS 00:00: mouth [place] PAIN) 650 00 every 8 Medical mg CR (eight) Branch tablet hours as needed for Pain. acetaminoph 0 Yes [id number] 650mg Take 1 [facility] en (TYLENOL 8-29 tablet by ity of ARTHRITIS 00:00: mouth [place] PAIN) 650 00 every 8 Medical mg CR (eight) Branch tablet hours as needed for Pain. acetaminoph 0 Yes [id number] 650mg Take 1 [facility] en (TYLENOL 8-29 tablet by ity of ARTHRITIS 00:00: mouth [place] PAIN) 650 00 every 8 Medical mg CR (eight) Branch tablet hours as needed for Pain. acetaminoph 2021-0 Yes [id number] 650mg Take 1 [facility] en (TYLENOL 8-29 tablet by ity of ARTHRITIS 00:00: mouth [place] PAIN) 650 00 every 8 Medical mg CR (eight) Branch tablet hours as needed for Pain. acetaminoph 2021-0 Yes [id number] 650mg Take 1 [facility] en (TYLENOL 8-29 tablet by ity of ARTHRITIS 00:00: mouth [place] PAIN) 650 00 every 8 Medical mg CR (eight) Branch tablet hours as needed for Pain. acetaminoph 0 Yes [id number] 650mg Take 1 Univers en (TYLENOL 8-29 tablet by ity of ARTHRITIS 00:00: mouth [place] PAIN) 650 00 every 8 Medical mg CR (eight) Branch tablet hours as needed for Pain. acetaminoph 0 Yes [id number] 650mg Take 1 [facility] en (TYLENOL 8-29 tablet by ity of ARTHRITIS 00:00: mouth [place] PAIN) 650 00 every 8 Medical mg CR (eight) Branch tablet hours as needed for Pain. acetaminoph 2021- No [id number] 650mg Take 1 Univers en (TYLENOL 8-29 11-26 tablet by it y of ARTHRITIS 00:00: 00:00 mouth [place] PAIN) 650 00 :00 every 8 Medical mg CR (eight) Branch tablet hours as needed for Pain. ondansetron 2021- No [id number] 4mg Take 1 [facility] 4 mg 8-29 10-18 tablet by ity of disintegrat 00:00: 00:00 [place] tablet 00 :00 every 8 Medica l (eight) Branch hours as needed for Nausea and Vomiting (N/V). ketorolac 2021- No [id number] 10mg Take 1 [facility] 10 mg 8-29 10-18 tablet by ity of tablet 00:00: 00:00 mouth [place] 00 :00 every 6 Medical (six) Branch hours as needed for Pain (scale 4-6) or Pain (scale 7-10). metaxalone 2021- No [id number] 800mg Take 1 Univers (SKELAXIN) 8-29 10-18 tablet by ity of 800 mg 00:00: 00:00 mouth in [place] tablet 00 :00 the Medical morning Branch and 1 tablet at noon and 1 tablet in the evening. ondansetron 2021-2021- No [id number] 4mg Take 1 [facility] 4 mg 8-29 10-18 tablet by ity of disintegrat 00:00: 00:00 [place] tablet 00 :00 every 8 Medica l (eight) Branch hours as needed for Nausea and Vomiting (N/V). ketorolac 2022-0 2021- No [id number] 10mg Take 1 [facility] 10 mg 8-29 10-18 tablet by ity of tablet 00:00: 00:00 mouth [place] 00 :00 every 6 Medical (six) Branch hours as needed for Pain (scale 4-6) or Pain (scale 7-10). metaxalone 2021-0 2021- No [id number] 800mg Take 1 [facility] (SKELAXIN) 8-29 10-18 tablet by ity of 800 mg 00:00: 00:00 mouth in [place] tablet 00 :00 the Medical morning Branch and 1 tablet at noon and 1 tablet in the evening. ondansetron 2021-0 2021- No [id number] 4mg Take 1 [facility] 4 mg 8-29 10-18 tablet by ity of disintegrat 00:00: 00:00 [place] tablet 00 :00 every 8 Medica l (eight) Branch hours as needed for Nausea and Vomiting (N/V). ketorolac 2021-0 2021- No [id number] 10mg Take 1 [facility] 10 mg 8-29 10-18 tablet by ity of tablet 00:00: 00:00 mouth [place] 00 :00 every 6 Medical (six) Branch hours as needed for Pain (scale 4-6) or Pain (scale 7-10). metaxalone 2021-0 2021- No [id number] 800mg Take 1 [facility] (SKELAXIN) 8-29 10-18 tablet by ity of 800 mg 00:00: 00:00 mouth in [place] tablet 00 :00 the Medical morning Branch and 1 tablet at noon and 1 tablet in the evening. ondansetron 2-0 2021- No [id number] 4mg Take 1 [facility] 4 mg 8-29 10-18 tablet by ity of disintegrat 00:00: 00:00 mouth [place] tablet 00 :00 every 8 Medica l (eight) Branch hours as needed for Nausea and Vomiting (N/V). ketorolac 2022-0 2021- No [id number] 10mg Take 1 [facility] 10 mg 8-29 10-18 tablet by ity of tablet 00:00: 00:00 mouth [place] 00 :00 every 6 Medical (six) Branch hours as needed for Pain (scale 4-6) or Pain (scale 7-10). metaxalone 2-0 2021- No [id number] 800mg Take 1 [facility] (SKELAXIN) 8-29 10-18 [...] 12 Medical (twelve) Branch hours. metroNIDAZO 2-0 2022- No 500mg Take 1 Un sushant LE 500 mg 8-08 10-18 tablet by ity of tablet 00:00: 00:00 mouth [place] 00 :00 every 12 Medical (twelve) Branch hours. metroNIDAZO 2-0 2022- No 500mg Take 1 Un sushant LE 500 mg 8-08 10-18 tablet by ity of tablet 00:00: 00:00 mouth [place] 00 :00 every 12 Medical (twelve) Branch hours. metroNIDAZO 2-0 2022- No 500mg Take 1 Un sushant LE 500 mg 8-08 10-18 tablet by ity of tablet 00:00: 00:00 mouth [place] 00 :00 every 12 Medical (twelve) Branch hours. metroNIDAZO 2-0 2022- No 500mg Take 1 Un sushant LE 500 mg 8-08 10-18 tablet by ity of tablet 00:00: 00:00 mouth [place] 00 :00 every 12 Medical (twelve) Branch hours. trazodone/d 2021-0 2021- No Take by Un sushant ietary 8-02 08-02 mouth. ity of supp. no.8 15:08: 00:00 [place] (TRAZAMINE 46 :00 Medical ORAL) Branch diphenhydrA 0 Yes 25mg Take 25 mg Univers MINE 25 mg 02 by mouth ity o f capsule 13:03: every 6 [place] 04 (six) Medical hours as Branch needed for Allergies. carbamazepi 2021-0 Yes Take by Uni vers ne 8-02 mouth. ity of (TEGRETOL 13:03: [place] ORAL) 04 Medical Branch citalopram 0 Yes Take by Univ ers hydrobromid 8-02 mouth. ity of e 13:03: [place] (CITALOPRAM 04 Medical ORAL) Branch ALBUTEROL Yes Univers INHALE 8-02 ity of 13:03: [place] [address] Medical Branch diphenhydrA Yes 25mg Take 25 mg [facility] MINE 25 mg 8-02 by mouth ity o f capsule 13:03: every 6 [place] [address] (six) Medical hours as Branch needed for Allergies. carbamazepi Yes Take by Uni vers ne 8-02 mouth. ity of (TEGRETOL 13:03: [place] ORAL) 04 Medical Branch citalopram Yes Take by Univ ers hydrobromid 8-02 mouth. ity of e 13:03: [place] (CITALOPRAM 04 Medical ORAL) Branch ALBUTEROL Yes Univers INHALE 8 ity of 13:03: [place] [address] Medical Branch diphenhydrA Yes 25mg Take 25 mg [facility] MINE 25 mg 12-12 by mouth ity o f capsule 13:03: every 6 [place] [address] (six) Medical hours as Branch needed for Allergies. carbamazepi Yes Take by Uni vers ne 8-02 mouth. ity of (TEGRETOL 13:03: [place] ORAL) Medical Branch citalopram Yes Take by Univ ers hydrobromid 8-02 mouth. ity of e 13:03: [place] (CITALOPRAM 04 Medical ORAL) Branch ALBUTEROL Yes Univers INHALE 12-12 ity of 13:03: [place] [address] Medical Branch diphenhydrA Yes 25mg Take 25 mg [facility] MINE 25 mg 802 by mouth ity o f capsule 13:03: every 6 [place] [address] (six) Medical hours as Branch needed for Allergies. carbamazepi Yes Take by Uni vers ne 8-02 mouth. ity of (TEGRETOL 13:03: [place] ORAL) 04 Medical Branch citalopram Yes Take by Univ ers hydrobromid 8-02 mouth. ity of e 13:03: [place] (CITALOPRAM 04 Medical ORAL) Branch ALBUTEROL Yes Univers INHALE 8 ity of 13:03: [place] [address] Medical Branch diphenhydrA Yes 25mg Take 25 [...] hydrobromid 8-02 mouth. ity of e 13:03: [place] (CITALOPRAM 04 Medical ORAL) Branch ALBUTEROL 0 Yes Univers INHALE 8-02 ity of 13:03: [place] [address] Medical Branch diphenhydrA 0 Yes 25mg Take 25 mg [facility] MINE 25 mg 802 by mouth ity o f capsule 13:03: every 6 [place] [address] (six) Medical hours as Branch needed for Allergies. carbamazepi 0 Yes Take by Uni vers ne 8-02 mouth. ity of (TEGRETOL 13:03: [place] ORAL) 04 Medical Branch citalopram Yes Take by Univ ers hydrobromid 8-02 mouth. ity of e 13:03: [place] (CITALOPRAM 04 Medical ORAL) Branch ALBUTEROL 0 Yes Univers INHALE 8 ity of 13:03: [place] [address] Medical Branch diphenhydrA 0 Yes 25mg Take 25 mg [facility] MINE 25 mg 8 by mouth ity o f capsule 13:03: every 6 [place] [address] (six) Medical hours as Branch needed for Allergies. carbamazepi 0 Yes Take by Uni vers ne 8-02 mouth. ity of (TEGRETOL 13:03: [place] ORAL) 04 Medical Branch citalopram Yes Take by Univ ers hydrobromid 8-02 mouth. ity of e 13:03: [place] (CITALOPRAM 04 Medical ORAL) Branch ALBUTEROL 0 Yes Univers INHALE 8-02 ity of 13:03: [place] [address] Medical Branch diphenhydrA 0 Yes 25mg Take 25 mg [facility] MINE 25 mg 802 by mouth ity o f capsule 13:03: every 6 [place] [address] (six) Medical hours as Branch needed for Allergies. carbamazepi 0 Yes Take by Uni vers ne 8-02 mouth. ity of (TEGRETOL 13:03: [place] ORAL) 04 Medical Branch citalopram 0 Yes Take by Univ ers hydrobromid 8-02 mouth. ity of e 13:03: [place] (CITALOPRAM 04 Medical ORAL) Branch ALBUTEROL Yes [facility] INHALE 12-12 ity of 13:03: [place] Medical Branch diphenhydrA Yes 25mg Take 25 mg [facility] MINE 25 mg 02 by mouth ity o f capsule 13:03: every 6 [place] [address] (six) Medical hours as Branch needed for Allergies. carbamazepi Yes Take by Uni vers ne 8-02 mouth. ity of (TEGRETOL 13:03: [place] ORAL) Medical Branch citalopram Yes Take by Univ ers hydrobromid 8-02 mouth. ity of e 13:03: [place] (CITALOPRAM 04 Medical ORAL) Branch ALBUTEROL Yes Univers INHALE 12-12 ity of 13:03: [place] [address] Medical Branch diphenhydrA Yes 25mg Take 25 mg [facility] MINE 25 mg 12-12 by mouth ity o f capsule 13:03: every 6 [place] [address] (six) Medical hours as Branch needed for Allergies. carbamazepi Yes Take by Uni vers ne 8-02 mouth. ity of (TEGRETOL 13:03: [place] ORAL) Medical Branch citalopram Yes Take by Univ ers hydrobromid 8-02 mouth. ity of e 13:03: [place] (CITALOPRAM 04 Medical ORAL) Branch ALBUTEROL Yes Univers INHALE 12-12 ity of 13:03: [place] [address] Medical Branch diphenhydrA Yes 25mg Take 25 mg [facility] MINE 25 mg 02 by mouth ity o f capsule 13:03: every 6 [place] [address] (six) Medical hours as Branch needed for Allergies. carbamazepi Yes Take by Uni vers ne 8-02 mouth. ity of (TEGRETOL 13:03: [place] ORAL) 04 Medical Branch citalopram Yes Take by Univ ers hydrobromid 8-02 mouth. ity of e 13:03: [place] (CITALOPRAM 04 Medical ORAL) Branch ALBUTEROL Yes Univers INHALE 8 ity of 13:03: [place] [address] Medical Branch ALBUTEROL Yes Univers INHALE 8-02 ity of 13:03: [address] ALBUTEROL Yes Univers INHALE 8-02 ity of 13:03: [address] ALBUTEROL Yes Univers INHALE 8-02 ity of 13:03: [address] ALBUTEROL Yes Univers INHALE 8-02 ity of 13:03: [address] ALBUTEROL Yes Univers INHALE 8-02 ity of 13:03: [address] ALBUTEROL Yes Univers INHALE 8-02 ity of 13:03: [address] ALBUTEROL Yes Univers INHALE 8-02 ity of 13:03: [address] ALBUTEROL Yes Univers INHALE 8-02 ity of 13:03: [address] ALBUTEROL Yes Univers INHALE 8-02 ity of 13:03: [address] ALBUTEROL Yes Univers INHALE 8-02 ity of 13:03: [address] ALBUTEROL Yes Univers INHALE 8-02 ity of 13:03: [address] ALBUTEROL Yes [facility] INHALE 8-02 ity of 13:03: [address] ALBUTEROL Yes Univers INHALE 8-02 ity of 13:03: [address] ALBUTEROL Yes Univers INHALE 8-02 ity of 13:03: [address] traZODone Yes [id number] 50mg Take 1 U nivers 50 mg 8-02 tablet by ity of tablet 00:00: mouth at [place] 00 bedtime. [facility] SERTraline Yes [id number] 50mg Take 1 [facility] (ZOLOFT) 50 8-02 tablet by [facility] mg tablet 00:[facility] Branch traZODone Yes [id number] 50mg Take 1 U nivers 50 mg 8-02 tablet by ity of tablet 00:00: mouth at [place] 00 bedtime. [facility] SERTraline Yes [id number] 50mg Take 1 [facility] (ZOLOFT) 50 8-02 tablet by ity of mg tablet 00:00: [place] 00 the Medical morning. Branch traZODone 2021-0 Yes [id number] 50mg Take 1 U nivers 50 mg 8-02 tablet by ity of tablet 00:00: mouth at [place] 00 bedtime. Medical Branch SERTraline 2021-0 Yes 50mg Take 1 [facility] (ZOLOFT) 50 8-02 tablet by ity of mg tablet 00:00: mouth [place] 00 the Medical morning. Branch traZODone 2021-0 Yes [id number] 50mg Take 1 U nivers 50 mg 8-02 tablet by ity of tablet 00:00: mouth at [place] 00 bedtime. Medical Branch SERTraline 0 Yes 50mg Take 1 [facility] (ZOLOFT) 50 8-02 tablet by ity of mg tablet 00:00: mouth [place] 00 the Medical morning. Branch traZODone 2021-0 Yes [id number] 50mg Take 1 U nivers 50 mg 8-02 tablet by ity of tablet 00:00: mouth at [place] 00 bedtime. Medical Branch SERTraline 2021-0 Yes 50mg Take 1 [facility] (ZOLOFT) 50 8-02 tablet by ity of mg tablet 00:00: mouth [place] 00 the Medical morning. Branch traZODone 2021-0 Yes [id number] 50mg Take 1 U nivers 50 mg 8-02 tablet by ity of tablet 00:00: mouth at [place] 00 bedtime. Medical Branch SERTraline 2021-0 Yes 50mg Take 1 [facility] (ZOLOFT) 50 8-02 tablet by ity of mg tablet 00:00: mouth [place] 00 the Medical morning. Branch traZODone 2021-0 Yes [id number] 50mg Take 1 U nivers 50 mg 8-02 tablet by ity of tablet 00:00: mouth at [place] 00 bedtime. Medical Branch SERTraline 2021-0 Yes 50mg Take 1 [facility] (ZOLOFT) 50 8-02 tablet by ity of mg tablet 00:00: mouth [place] 00 the Medical morning. Branch traZODone 2021-0 Yes [id number] 50mg Take 1 U nivers 50 mg 8-02 tablet by ity of tablet 00:00: mouth at [place] 00 bedtime. Medical Branch SERTraline 0 Yes [id number] 50mg Take 1 [facility] (ZOLOFT) 50 8-02 tablet by ity of mg tablet 00:00: mouth [place] 00 the Medical morning. Branch traZODone 0 Yes [id number] 50mg Take 1 U nivers 50 mg 8-02 tablet by ity of tablet 00:00: mouth at [place] 00 bedtime. Medical Branch SERTraline 0 Yes [id number] 50mg Take 1 [facility] (ZOLOFT) 50 8-02 tablet by ity of mg tablet 00:00: [place] 00 the Medical morning. Branch traZODone 0 Yes [id number] 50mg Take 1 U nivers 50 mg 8-02 tablet by ity of tablet 00:00: mouth at [place] 00 bedtime. Medical Branch SERTraline 0 Yes [id number] 50mg Take 1 [facility] (ZOLOFT) 50 8-02 tablet by ity of mg tablet 00:00: [place] 00 the Medical morning. Branch traZODone 0 Yes [id number] 50mg Take 1 U nivers 50 mg 8-02 tablet by [facility] of tablet 00:00: mouth at [place] 00 bedtime. Medical Branch SERTraline Yes [id number] 50mg Take 1 [facility] (ZOLOFT) 50 8-02 tablet by [facility] mg tablet 00:00: [place] 00 the Medical morning. Branch traZODone 2021- No [id number] 50mg Take 1 [facility] 50 mg 8-02 10-18 tablet by [facility] of tablet 00:00: 00:00 mouth at [place] 00 :00 bedtime. Medical Branch SERTraline 0 2021- No [id number] 50mg Take 1 [facility] (ZOLOFT) 50 8-02 10-18 tablet by it y of mg tablet 00:00: 00:00 mouth in [place] as 00 :00 the Medical morning. Branch traZODone 2021- No [id number] 50mg Take 1 [facility] 50 mg 8-02 10-18 tablet by ity of tablet 00:00: 00:00 mouth at [place] 00 :00 bedtime. Medical Branch SERTraline 2021- No [id number] 50mg Take 1 [facility] (ZOLOFT) 50 8- 10-18 tablet by it y of mg tablet 00:00: 00:00 mouth in [facility] as 00 :00 the Medical morning. Branch traZODone 2021- No [id number] 50mg Take 1 [facility] 50 mg 8- 10-18 tablet by ity of tablet 00:00: 00:00 mouth at [place] 00 :00 bedtime. Medical Branch SERTraline 2021- No [id number] 50mg Take 1 [facility] (ZOLOFT) 50 8- 10-18 tablet by it y of mg tablet 00:00: 00:00 mouth in [facility] as 00 :00 the Medical morning. Branch traZODone 2021- No [id number] 50mg Take 1 [facility] 50 mg 8- 10-18 tablet by ity of tablet 00:00: 00:00 mouth at [place] 00 :00 bedtime. Medical Branch SERTraline 2021- No [id number] 50mg Take 1 [facility] (ZOLOFT) 50 8- 10-18 tablet by it y of mg tablet 00:00: 00:00 mouth in [facility] as 00 :00 the Medical morning. Branch sulfamethox 2021- No [id number] 1{tbl} Take 1 [facility] azole-trime -06 20-06 tablet by it y of thoprim 00:00: 04:59 mouth in [place] (BACTRIM 00 :00 the Medical DS) 800-160 morning Branc h mg per and 1 tablet tablet in the evening. Do all this for 3 days. ibuprofen Yes [id number] 600mg Take 1 [facility] 600 mg 7-15 tablet by ity of tablet 00:00: mouth [place] [address] every 6 Medical (six) Branch hours as needed for Pain (scale 4-6). ibuprofen 2021-0 Yes [id number] 600mg Take 1 [facility] 600 mg 7-15 tablet by ity of tablet 00:00: mouth [place] [address] every 6 Medical (six) Branch hours as needed for Pain (scale 4-6). ibuprofen 2021-0 Yes [id number] 600mg Take 1 [facility] 600 mg 7-15 tablet by ity of tablet 00:00: mouth [place] 00 every 6 Medical (six) Branch hours as needed for Pain (scale 4-6). ibuprofen 2022-0 Yes [id number] 600mg Take 1 [facility] 600 mg 7-15 tablet by ity of tablet 00:00: mouth [place] 00 every 6 Medical (six) Branch hours as needed for Pain (scale 4-6). ibuprofen 2022-0 Yes [id number] 600mg Take 1 [facility] 600 mg 7-15 tablet by ity of tablet 00:00: mouth [place] 00 every 6 Medical (six) Branch hours as needed for Pain (scale 4-6). ibuprofen 2022-0 Yes [id number] 600mg Take 1 [facility] 600 mg 7-15 tablet by ity of tablet 00:00: mouth [place] 00 every 6 Medical (six) Branch hours as needed for Pain (scale 4-6). ibuprofen 2022-0 Yes [id number] 600mg Take 1 [facility] 600 mg 7-15 tablet by ity of tablet 00:00: mouth [place] 00 every 6 Medical (six) Branch hours as needed for Pain (scale 4-6). ibuprofen 2-0 Yes [id number] 600mg Take 1 [facility] 600 mg 7-15 tablet by ity of tablet 00:00: mouth [place] 00 every 6 Medical (six) Branch hours as needed for Pain (scale 4-6). ibuprofen 2022-0 Yes [id number] 600mg Take 1 [facility] 600 mg 7-15 tablet by ity of tablet 00:00: mouth [place] 00 every 6 Medical (six) Branch hours as needed for Pain (scale 4-6). ibuprofen 2022-0 Yes [id number] 600mg Take 1 [facility] 600 mg 7-15 tablet by ity of tablet 00:00: mouth [place] 00 every 6 Medical (six) Branch hours as needed for Pain (scale 4-6). ibuprofen 2022-0 Yes [id number] 600mg Take 1 [facility] 600 mg 7-15 tablet by ity of tablet 00:00: mouth [place] 00 every 6 Medical (six) Branch hours as needed for Pain (scale 4-6). ibuprofen 2022-0 2022- No [id number] 600mg Take 1 [facility] 600 mg 7-15 10-18 tablet by ity of tablet 00:00: 00:00 mouth [place] 00 :00 every 6 Medical (six) Branch hours as needed for Pain (scale 4-6). ibuprofen 2021-0 2021- No [id number] 600mg Take 1 [facility] 600 mg 7-15 10-18 tablet by ity of tablet 00:00: 00:00 mouth [place] 00 :00 every 6 Medical (six) Branch hours as needed for Pain (scale 4-6). ibuprofen 2021-0 2021- No [id number] 600mg Take 1 [facility] 600 mg 7-15 10-18 tablet by ity of tablet 00:00: 00:00 mouth [place] 00 :00 every 6 Medical (six) Branch hours as needed for Pain (scale 4-6). ibuprofen 2021-0 2021- No [id number] 600mg Take 1 [facility] 600 mg 7-15 10-18 tablet by ity of tablet 00:00: 00:00 mouth [place] 00 :00 every 6 Medical (six) Branch hours as needed for Pain (scale 4-6). acetaminoph 2021-2021- No [id number] 1{tbl} Take 1 U nivers en-codeine 7-15 08-02 tablet by ity of 300-30 mg 00:00: 00:00 mouth [place] tablet 00 :00 every 4 Medical (four) Branch hours as needed for Pain (scale 4-6). Indication s: acute pain bromphenira 2021-0 Yes [id number] 5mL Take 5 mL [facility] mine-pseudo 7-09 by mouth 4 it y of ephedrine-D 00:00: (four) [place] M (BROMFED 00 times Medical DM) 2-30-10 daily as Bran ch mg/5 mL needed for syrup Congestion /Allergies or Cough. naproxen 2021-0 Yes [id number] 500mg Take 1 [facility] n[facility] 500 mg 7-09 tablet by ity of tablet 00:00: mouth [place] 00 every 8 Medical (eight) Branch hours as needed for Pain (scale 4-6). cyclobenzap 2021-0 Yes [id number] 10mg Take 1 [facility] rine 10 mg 7-09 tablet by ity of tablet 00:00: mouth at [place] 00 bedtime as Medical needed for Branch Muscle Spasms. bromphenira 2021-0 Yes [id number] 5mL Take 5 mL [facility] mine-pseudo 7-09 by mouth 4 it y of ephedrine-D 00:00: (four) [place] M (BROMFED 00 times Medical DM) 2-30-10 daily as Bran ch mg/5 mL needed for syrup Congestion /Allergies or Cough. naproxen 2022-0 Yes [id number] 500mg Take 1 [facility] n[facility] 500 mg 7-09 tablet by ity of tablet 00:00: mouth [place] 00 every 8 Medical (eight) Branch hours as needed for Pain (scale 4-6). cyclobenzap 2022-0 Yes [id number] 10mg Take 1 [facility] rine 10 mg 7-09 tablet by ity of tablet 00:00: mouth at [place] 00 bedtime as Medical needed for Branch Muscle Spasms. bromphenira 2022-0 Yes [id number] 5mL Take 5 mL [facility] mine-pseudo 7-09 by mouth 4 it y of ephedrine-D 00:00: (four) [place] M (BROMFED 00 times Medical DM) 2-30-10 daily as Bran ch mg/5 mL needed for syrup Congestion /Allergies or Cough. naproxen 2-0 Yes [id number] 500mg Take 1 [facility] n[facility] 500 mg 7-09 tablet by ity of tablet 00:00: mouth [place] 00 every 8 Medical (eight) Branch hours as needed for Pain (scale 4-6). cyclobenzap 2022-0 Yes [id number] 10mg Take 1 [facility] rine 10 mg 7-09 tablet by ity of tablet 00:00: mouth at [place] 00 bedtime as Medical needed for Branch Muscle Spasms. bromphenira 2022-0 Yes [id number] 5mL Take 5 mL [facility] mine-pseudo 7-09 by mouth 4 it y of ephedrine-D 00:00: (four) [place] M (BROMFED 00 times Medical DM) 2-30-10 daily as Bran ch mg/5 mL needed for syrup Congestion /Allergies or Cough. naproxen 2022-0 Yes [id number] 500mg Take 1 [facility] nivers 500 mg 7-09 tablet by ity of tablet 00:00: mouth [place] 00 every 8 Medical (eight) Branch hours as needed for Pain (scale 4-6). cyclobenzap 2022-0 Yes [id number] 10mg Take 1 [facility] rine 10 mg 7-09 tablet by ity of tablet 00:00: mouth at [place] 00 bedtime as Medical needed for Branch Muscle Spasms. bromphenira 2021-0 Yes [id number] 5mL Take 5 mL [facility] mine-pseudo 7-09 by mouth 4 it y of ephedrine-D 00:00: (four) [place] M (BROMFED 00 times Medical DM) 2-30-10 daily as Bran ch mg/5 mL needed for syrup Congestion /Allergies or Cough. naproxen 2021-0 Yes [id number] 500mg Take 1 [facility] nivers 500 mg 7-09 tablet by ity of tablet 00:00: mouth [place] 00 every 8 Medical (eight) Branch hours as needed for Pain (scale 4-6). cyclobenzap 2021-0 Yes [id number] 10mg Take 1 [facility] rine 10 mg 7-09 tablet by ity of tablet 00:00: mouth at [place] 00 bedtime as Medical needed for Branch Muscle Spasms. bromphenira 2021-0 Yes [id number] 5mL Take 5 mL [facility] mine-pseudo 7-09 by mouth 4 it y of ephedrine-D 00:00: (four) [place] M (BROMFED 00 times Medical DM) 2-30-10 daily as Bran ch mg/5 mL needed for syrup Congestion /Allergies or Cough. naproxen 2021-0 Yes [id number] 500mg Take 1 [facility] nivers 500 mg 7-09 tablet by ity of tablet 00:00: mouth [place] 00 every 8 Medical (eight) Branch hours as needed for Pain (scale 4-6). cyclobenzap 2021-0 Yes [id number] 10mg Take 1 [facility] rine 10 mg 7-09 tablet by ity of tablet 00:00: mouth at [place] 00 bedtime as Medical needed for Branch Muscle Spasms. bromphenira 2021-0 Yes [id number] 5mL Take 5 mL [facility] mine-pseudo 7-09 by mouth 4 it y of ephedrine-D 00:00: (four) [place] M (BROMFED 00 times Medical DM) 2-30-10 daily as Bran ch mg/5 mL needed for syrup Congestion /Allergies or Cough. naproxen 2-0 Yes [id number] 500mg Take 1 U nivers 500 mg 7-09 tablet by ity of tablet 00:00: mouth [place] 00 every 8 Medical (eight) Branch hours as needed for Pain (scale 4-6). cyclobenzap 2021-0 Yes [id number] 10mg Take 1 [facility] rine 10 mg 7-09 tablet by ity of tablet 00:00: mouth at [place] 00 bedtime as Medical needed for Branch Muscle Spasms. bromphenira 2021-0 Yes [id number] 5mL Take 5 mL [facility] mine-pseudo 7-09 by mouth 4 it y of ephedrine-D 00:00: (four) [place] M (BROMFED 00 times Medical DM) 2-30-10 daily as Bran ch mg/5 mL needed for syrup Congestion /Allergies or Cough. naproxen 2021-0 Yes [id number] 500mg Take 1 [facility] nivers 500 mg 7-09 tablet by ity of tablet 00:00: mouth [place] 00 every 8 Medical (eight) Branch hours as needed for Pain (scale 4-6). cyclobenzap 2021-0 Yes [id number] 10mg Take 1 [facility] rine 10 mg 7-09 tablet by ity of tablet 00:00: mouth at [place] 00 bedtime as Medical needed for Branch Muscle Spasms. bromphenira 2021-0 Yes [id number] 5mL Take 5 mL [facility] mine-pseudo 7-09 by mouth 4 it y of ephedrine-D 00:00: (four) [place] M (BROMFED 00 times Medical DM) 2-30-10 daily as Bran ch mg/5 mL needed for syrup Congestion /Allergies or Cough. naproxen 2021-0 Yes [id number] 500mg Take 1 U nivers 500 mg 7-09 tablet by ity of tablet 00:00: mouth [place] 00 every 8 Medical (eight) Branch hours as needed for Pain (scale 4-6). cyclobenzap 2021-0 Yes [id number] 10mg Take 1 [facility] rine 10 mg 7-09 tablet by ity of tablet 00:00: mouth at [place] 00 bedtime as Medical needed for Branch Muscle Spasms. bromphenira 2-0 Yes [id number] 5mL Take 5 mL [facility] mine-pseudo 7-09 by mouth 4 it y of ephedrine-D 00:00: (four) [place] M (BROMFED 00 times Medical DM) 2-30-10 daily as Bran ch mg/5 mL needed for syrup Congestion /Allergies or Cough. naproxen 2022-0 Yes [id number] 500mg Take 1 U nivers 500 mg 7-09 tablet by ity of tablet 00:00: mouth [place] 00 every 8 Medical (eight) Branch hours as needed for Pain (scale 4-6). cyclobenzap 2021-0 Yes [id number] 10mg Take 1 [facility] rine 10 mg 7-09 tablet by ity of tablet 00:00: mouth at [place] 00 bedtime as Medical needed for Branch Muscle Spasms. bromphenira 2021-0 Yes [id number] 5mL Take 5 mL [facility] mine-pseudo 7-09 by mouth 4 it y of ephedrine-D 00:00: (four) [place] M (BROMFED 00 times Medical DM) 2-30-10 daily as Bran ch mg/5 mL needed for syrup Congestion /Allergies or Cough. naproxen 2021-0 Yes [id number] 500mg Take 1 [facility] nivers 500 mg 7-09 tablet by ity of tablet 00:00: mouth [place] 00 every 8 Medical (eight) Branch hours as needed for Pain (scale 4-6). cyclobenzap 2021-0 Yes [id number] 10mg Take 1 [facility] rine 10 mg 7-09 tablet by ity of tablet 00:00: mouth at [place] 00 bedtime as Medical needed for Branch Muscle Spasms. bromphenira 2021-0 Yes [id number] 5mL Take 5 mL [facility] mine-pseudo 7-09 by mouth 4 it y of ephedrine-D 00:00: (four) [place] M (BROMFED 00 times Medical DM) 2-30-10 daily as Bran ch mg/5 mL needed for syrup Congestion /Allergies or Cough. bromphenira 2021-0 Yes [id number] 5mL Take 5 mL [facility] mine-pseudo 7-09 by mouth 4 it y of ephedrine-D 00:00: (four) [place] M (BROMFED 00 times Medical DM) 2-30-10 daily as Bran ch mg/5 mL needed for syrup Congestion /Allergies or Cough. bromphenira 2021-0 Yes [id number] 5mL Take 5 mL [facility] mine-pseudo 7-09 by mouth 4 it y of ephedrine-D 00:00: (four) [place] M (BROMFED 00 times Medical DM) 2-30-10 daily as Bran ch mg/5 mL needed for syrup Congestion /Allergies or Cough. bromphenira 2022-0 Yes [id number] 5mL Take 5 mL [facility] mine-pseudo 7-09 by mouth 4 it y of ephedrine-D 00:00: (four) [place] M (BROMFED 00 times Medical DM) 2-30-10 daily as Bran ch mg/5 mL needed for syrup Congestion /Allergies or Cough. bromphenira 2-0 Yes [id number] 5mL Take 5 mL [facility] mine-pseudo 7-09 by mouth 4 it y of ephedrine-D 00:00: (four) [place] M (BROMFED 00 times Medical DM) 2-30-10 daily as Bran ch mg/5 mL needed for syrup Congestion /Allergies or Cough. bromphenira 2021-0 Yes [id number] 5mL Take 5 mL [facility] mine-pseudo 7-09 by mouth 4 it y of ephedrine-D 00:00: (four) [place] M (BROMFED 00 times Medical DM) 2-30-10 daily as Bran ch mg/5 mL needed for syrup Congestion /Allergies or Cough. bromphenira 2021-0 Yes [id number] 5mL Take 5 mL [facility] mine-pseudo 7-09 by mouth 4 it y of ephedrine-D 00:00: (four) [place] M (BROMFED 00 times Medical DM) 2-30-10 daily as Bran ch mg/5 mL needed for syrup Congestion /Allergies or Cough. bromphenira 2021-0 Yes [id number] 5mL Take 5 mL [facility] mine-pseudo 7-09 by mouth 4 it y of ephedrine-D 00:00: (four) [place] M (BROMFED 00 times Medical DM) 2-30-10 daily as Bran ch mg/5 mL needed for syrup Congestion /Allergies or Cough. bromphenira 2-0 Yes [id number] 5mL Take 5 mL [facility] mine-pseudo 7-09 by mouth 4 it y of ephedrine-D 00:00: (four) [place] M (BROMFED 00 times Medical DM) 2-30-10 daily as Bran ch mg/5 mL needed for syrup Congestion /Allergies or Cough. bromphenira 2022-0 Yes [id number] 5mL Take 5 mL [facility] mine-pseudo 7-09 by mouth 4 it y of ephedrine-D 00:00: (four) [place] M (BROMFED 00 times Medical DM) 2-30-10 daily as Bran ch mg/5 mL needed for syrup Congestion /Allergies or Cough. bromphenira 2021-0 Yes [id number] 5mL Take 5 mL [facility] mine-pseudo 7-09 by mouth 4 it y of ephedrine-D 00:00: (four) [place] M (BROMFED 00 times Medical DM) 2-30-10 daily as Bran ch mg/5 mL needed for syrup Congestion /Allergies or Cough. bromphenira 2021-0 Yes [id number] 5mL Take 5 mL [facility] mine-pseudo 7-09 by mouth 4 it y of ephedrine-D 00:00: (four) [place] M (BROMFED 00 times Medical DM) 2-30-10 daily as Bran ch mg/5 mL needed for syrup Congestion /Allergies or Cough. bromphenira 2021-0 Yes [id number] 5mL Take 5 mL [facility] mine-pseudo 7-09 by mouth 4 it y of ephedrine-D 00:00: (four) [place] M (BROMFED 00 times Medical DM) 2-30-10 daily as Bran ch mg/5 mL needed for syrup Congestion /Allergies or Cough. bromphenira 2021-0 Yes [id number] 5mL Take 5 mL [facility] mine-pseudo 7-09 by mouth 4 it y of ephedrine-D 00:00: (four) [place] M (BROMFED 00 times Medical DM) 2-30-10 daily as Bran ch mg/5 mL needed for syrup Congestion /Allergies or Cough. bromphenira 2021- No [id number] 5mL Take 5 mL [facility] mine-pseudo 7-09 11-12 by mouth 4 i ty of ephedrine-D 00:00: 00:00 (four) [place] as M (BROMFED 00 :00 times Medical DM) 2-30-10 daily as Bran ch mg/5 mL needed for syrup Congestion /Allergies or Cough. naproxen 2021- No [id number] 500mg Take 1 [facility] 500 mg 11-18 10-18 tablet by ity of tablet 00:00: 00:00 mouth [place] 00 :00 every 8 Medical (eight) Branch hours as needed for Pain (scale 4-6). cyclobenzap No [id number] 10mg Take 1 [facility] rine 10 mg 7- 10-18 tablet by ity of tablet 00:00: 00:00 mouth at [place] 00 :00 bedtime as Medical needed for Branch Muscle Spasms. naproxen 2021- No [id number] 500mg Take 1 [facility] 500 mg 7- 10-18 tablet by ity of tablet 00:00: 00:00 mouth [place] 00 :00 every 8 Medical (eight) Branch hours as needed for Pain (scale 4-6). cyclobenzap 2021- No [id number] 10mg Take 1 [facility] rine 10 mg 7- 10-18 tablet by ity of tablet 00:00: 00:00 mouth at [place] 00 :00 bedtime as Medical needed for Branch Muscle Spasms. naproxen 2021- No [id number] 500mg Take 1 [facility] 500 mg 7- 10-18 tablet by ity of tablet 00:00: 00:00 mouth [place] 00 :00 every 8 Medical (eight) Branch hours as needed for Pain (scale 4-6). cyclobenzap 2021- No [id number] 10mg Take 1 [facility] rine 10 mg 7- 10-18 tablet by ity of tablet 00:00: 00:00 mouth at [place] 00 :00 bedtime as Medical needed for Branch Muscle Spasms. naproxen No [id number] 500mg Take 1 [facility] 500 mg 7- 10-18 tablet by ity of tablet 00:00: 00:00 mouth [place] 00 :00 every 8 Medical (eight) Branch hours as needed for Pain (scale 4-6). cyclobenzap No [id number] 10mg Take 1 [facility] rine 10 mg 7- 10-18 tablet by ity of tablet 00:00: 00:00 mouth at [place] 00 :00 bedtime as Medical needed for Branch Muscle Spasms. ibuprofen Yes [id number] 605mg Take 30.25 [facility] 100 mg/5 mL 6-15 mL by ity of oral 00:00: mouth [place] suspension 00 every 6 Medica l (six) Branch hours as needed for Pain (scale 4-6) or Temp > 38.5 C. ibuprofen 2021-0 Yes [id number] 605mg Take 30.25 [facility] 100 mg/5 mL 6-15 mL by ity of oral 00:00: mouth [place] suspension 00 every 6 Medica l (six) Branch hours as needed for Pain (scale 4-6) or Temp > 38.5 C. ibuprofen 2021-0 Yes [id number] 605mg Take 30.25 [facility] 100 mg/5 mL 6-15 mL by ity of oral 00:00: mouth [place] suspension 00 every 6 Medica l (six) Branch hours as needed for Pain (scale 4-6) or Temp > 38.5 C. ibuprofen 2021-0 Yes [id number] 605mg Take 30.25 [facility] 100 mg/5 mL 6-15 mL by ity of oral 00:00: mouth [place] suspension 00 every 6 Medica l (six) Branch hours as needed for Pain (scale 4-6) or Temp > 38.5 C. ibuprofen 2021-0 Yes [id number] 605mg Take 30.25 [facility] 100 mg/5 mL 6-15 mL by ity of oral 00:00: mouth [place] suspension 00 every 6 Medica l (six) Branch hours as needed for Pain (scale 4-6) or Temp > 38.5 C. ibuprofen 2021-0 Yes [id number] 605mg Take 30.25 [facility] 100 mg/5 mL 6-15 mL by ity of oral 00:00: mouth [place] suspension 00 every 6 Medica l (six) Branch hours as needed for Pain (scale 4-6) or Temp > 38.5 C. ibuprofen 2021-0 Yes [id number] 605mg Take 30.25 [facility] 100 mg/5 mL 6-15 mL by ity of oral 00:00: mouth [place] suspension 00 every 6 Medica l (six) Branch hours as needed for Pain (scale 4-6) or Temp > 38.5 C. ibuprofen 2021-0 Yes [id number] 605mg Take 30.25 [facility] 100 mg/5 mL 6-15 mL by ity of oral 00:00: mouth [place] suspension 00 every 6 Medica l (six) Branch hours as needed for Pain (scale 4-6) or Temp > 38.5 C. ibuprofen 2021-0 Yes [id number] 605mg Take 30.25 [facility] 100 mg/5 mL 6-15 mL by ity of oral 00:00: mouth [place] suspension 00 every 6 Medica l (six) Branch hours as needed for Pain (scale 4-6) or Temp > 38.5 C. ibuprofen 0 Yes [id number] 605mg Take 30.25 [facility] 100 mg/5 mL 6-15 mL by ity of oral 00:00: mouth [place] suspension 00 every 6 Medica l (six) Branch hours as needed for Pain (scale 4-6) or Temp > 38.5 C. ibuprofen 0 Yes [id number] 605mg Take 30.25 [facility] 100 mg/5 mL 6-15 mL by ity of oral 00:00: mouth [place] suspension 00 every 6 Medica l (six) Branch hours as needed for Pain (scale 4-6) or Temp > 38.5 C. ibuprofen 2021- No [id number] 605mg Take 30.25 [facility] 100 mg/5 mL 6-15 10-18 mL by ity of oral 00:00: 00:00 mouth [place] suspension 00 :00 every 6 Medica l (six) Branch hours as needed for Pain (scale 4-6) or Temp > 38.5 C. ibuprofen 2021- No [id number] 605mg Take 30.25 [facility] 100 mg/5 mL 6-15 10-18 mL by ity of oral 00:00: 00:00 mouth [place] suspension 00 :00 every 6 Medica l (six) Branch hours as needed for Pain (scale 4-6) or Temp > 38.5 C. ibuprofen 2021- No [id number] 605mg Take 30.25 [facility] 100 mg/5 mL 6-15 10-18 mL by ity of oral 00:00: 00:00 mouth [place] suspension 00 :00 every 6 Medica l (six) Branch hours as needed for Pain (scale 4-6) or Temp > 38.5 C. ibuprofen 2021- No [id number] 605mg Take 30.25 [facility] 100 mg/5 mL 6-15 10-18 mL by ity of oral 00:00: 00:00 mouth [place] suspension 00 :00 every 6 Medica l (six) Branch hours as needed for Pain (scale 4-6) or Temp > 38.5 C. acetaminoph 0 2021- No [id number] 608mg Take 19 mL [facility] en 160 mg/5 6-15 08-02 by mouth ity of mL liquid 00:00: 00:00 every 6 [place] 00 :00 (six) Medical hours as Branch needed for Fever. DULoxetine 0 Yes [facility] 60 mg 5-27 ity of capsule 00:00: [place] [address] Medical Branch DULoxetine 2021-0 Yes [facility] 60 mg 5-27 ity of capsule 00:00: [place] [address] Medical Branch DULoxetine 2021-0 Yes [facility] 60 mg 5-27 ity of capsule 00:00: [place] [address] Medical Branch DULoxetine 2021-0 Yes [facility] 60 mg 5-27 ity of capsule 00:00: [place] [address] Medical Branch DULoxetine 2021-0 Yes [facility] 60 mg 5-27 ity of capsule 00:00: [place] [address] Medical Branch DULoxetine 2021-0 Yes [facility] 60 mg 5-27 ity of capsule 00:00: [place] [address] Medical Branch DULoxetine 2021-0 Yes [facility] 60 mg 5-27 ity of capsule 00:00: [place] [address] Medical Branch DULoxetine 2021-0 Yes [facility] 60 mg 5-27 ity of capsule 00:00: [place] [address] Medical Branch DULoxetine 2021-0 Yes [facility] 60 mg 5-27 ity of capsule 00:00: [place] [address] Medical Branch DULoxetine 2021-0 Yes [facility] 60 mg 5-27 ity of capsule 00:00: [place] [address] Medical Branch DULoxetine 2021-0 Yes [facility] 60 mg 5-27 ity of capsule 00:00: [place] 00 Medical Branch DULoxetine 2021-0 2- No [facility] 60 mg 5-27 10-18 ity of capsule 00:00: 00:00 [place] 00 :00 Medical Branch DULoxetine 2-0 2- No [facility] 60 mg 5-27 10-18 ity of capsule 00:00: 00:00 [place] 00 :00 Medical Branch DULoxetine 2-0 2- No [facility] 60 mg 5-27 10-18 ity of capsule 00:00: 00:00 [place] 00 :00 Medical Branch DULoxetine 2-0 2- No [facility] 60 mg 5-27 10-18 ity of capsule 00:00: 00:00 [place] 00 :00 Medical Branch traZODone 2021-0 2021- No [facility] 50 mg 5-27 08 ity of tablet 00:00: 00:00 [place] 00 :00 Medical Branch mometasone 2021-0 Yes [id number] 1{spray Use 1 [facility] 50 5-19 } [place] in ity of mcg/actuati 00:00: each [place] on nasal 00 nostril 2 Medica l spray (two) Branch times daily. mometasone 2021-0 Yes [id number] 1{spray Use 1 [facility] 50 5-19 } [place] in ity of mcg/actuati 00:00: each [place] on nasal 00 nostril 2 Medica l spray (two) Branch times daily. mometasone 2021-0 Yes [id number] 1{spray Use 1 [facility] 50 5-19 } [place] in ity of mcg/actuati 00:00: each [place] on nasal 00 nostril 2 Medica l spray (two) Branch times daily. mometasone 2021-0 Yes [id number] 1{spray Use 1 [facility] 50 5-19 } [place] in ity of mcg/actuati 00:00: each [place] on nasal 00 nostril 2 Medica l spray (two) Branch times daily. mometasone 2021-0 Yes [id number] 1{spray Use 1 [facility] 50 5-19 } [place] in ity of mcg/actuati 00:00: each [place] on nasal 00 nostril 2 Medica l spray (two) Branch times daily. mometasone 2021-0 Yes [id number] 1{spray Use 1 [facility] 50 5-19 } [place] in ity of mcg/actuati 00:00: each [place] on nasal 00 nostril 2 Medica l spray (two) Branch times daily. mometasone 2021-0 Yes [id number] 1{spray Use 1 [facility] 50 5-19 } [place] in ity of mcg/actuati 00:00: each [place] on nasal 00 nostril 2 Medica l spray (two) Branch times daily. mometasone 2021-0 Yes [id number] 1{spray Use 1 [facility] 50 5-19 } [place] in ity of mcg/actuati 00:00: each [place] on nasal 00 nostril 2 Medica l spray (two) Branch times daily. mometasone 2021-0 Yes [id number] 1{spray Use 1 [facility] 50 5-19 } [place] in ity of mcg/actuati 00:00: each [place] on nasal 00 nostril 2 Medica l spray (two) Branch times daily. mometasone Yes [id number] 1{spray Use 1 [facility] 50 5-19 } [place] in ity of mcg/actuati 00:00: each [place] on nasal 00 nostril 2 Medica l spray (two) Branch times daily. mometasone Yes [id number] 1{spray Use 1 [facility] 50 5-19 } [place] in ity of mcg/actuati 00:00: each [place] on nasal 00 nostril 2 Medica l spray (two) Branch times daily. mometasone 2021- No [id number] 1{spray Use 1 [facility] 50 5-19 10-18 } [place] in ity of mcg/actuati 00:00: 00:00 each [place] on nasal 00 :00 nostril 2 Medica l spray (two) Branch times daily. mometasone 2021- No [id number] 1{spray Use 1 [facility] 50 5-19 10-18 } [place] in ity of mcg/actuati 00:00: 00:00 each [place] on nasal 00 :00 nostril 2 Medica l spray (two) Branch times daily. mometasone 2021- No [id number] 1{spray Use 1 [facility] 50 5-19 10-18 } [place] in ity of mcg/actuati 00:00: 00:00 each [place] on nasal 00 :00 nostril 2 Medica l spray (two) Branch times daily. mometasone 2021- No [id number] 1{spray Use 1 [facility] 50 5-19 10-18 } [place] in ity of mcg/actuati 00:00: 00:00 each [place] on nasal 00 :00 nostril 2 Medica l spray (two) Branch times daily. cetirizine Yes [id number] 10mg Take 1 U nivers (ZYRTEC) 10 5-16 tablet by ity of mg tablet 00:00: mouth [place] 00 daily. [facility] cetirizine Yes [id number] 10mg Take 1 U nivers (ZYRTEC) 10 5-16 tablet by ity of mg tablet 00:00: mouth [place] 00 daily. [facility] cetirizine Yes [id number] 10mg Take 1 [facility] nivers (ZYRTEC) 10 5-16 tablet by ity of mg tablet 00:00: mouth [place] 00 daily. [facility] cetirizine Yes [id number] 10mg Take 1 U nivers (ZYRTEC) 10 5-16 tablet by ity of mg tablet 00:00: mouth [place] 00 daily. [facility] cetirizine Yes [id number] 10mg Take 1 U nivers (ZYRTEC) 10 5-16 tablet by ity of mg tablet 00:00: mouth [place] 00 daily. [facility] cetirizine Yes [id number] 10mg Take 1 U nivers (ZYRTEC) 10 5-16 tablet by ity of mg tablet 00:00: mouth [place] 00 daily. [facility] cetirizine Yes [id number] 10mg Take 1 U nivers (ZYRTEC) 10 5-16 tablet by ity of mg tablet 00:00: mouth [place] 00 daily. [facility] cetirizine Yes [id number] 10mg Take 1 [facility] nivers (ZYRTEC) 10 5-16 tablet by ity of mg tablet 00:00: mouth [place] 00 daily. [facility] cetirizine Yes [id number] 10mg Take 1 U nivers (ZYRTEC) 10 5-16 tablet by ity of mg tablet 00:00: mouth [place] 00 daily. [facility] cetirizine Yes [id number] 10mg Take 1 [facility] nivers (ZYRTEC) 10 5-16 tablet by ity of mg tablet 00:00: mouth [place] 00 daily. [facility] cetirizine Yes [id number] 10mg Take 1 U nivers (ZYRTEC) 10 5-16 tablet by ity of mg tablet 00:00: mouth [place] 00 daily. [facility] cetirizine 2021- No [id number] 10mg Take 1 [facility] (ZYRTEC) 10 5-16 10-18 tablet by it y of mg tablet 00:00: 00:00 mouth [place] 00 :00 daily. [facility] cetirizine 2021- No [id number] 10mg Take 1 [facility] (ZYRTEC) 10 5-16 10-18 tablet by it y of mg tablet 00:00: 00:00 mouth [place] 00 :00 daily. [facility] cetirizine 2021- No [id number] 10mg Take 1 [facility] (ZYRTEC) 10 5-16 10-18 tablet by it y of mg tablet 00:00: 00:00 mouth [place] 00 :00 daily. [facility] cetirizine 2021- No [id number] 10mg Take 1 [facility] (ZYRTEC) 10 5-16 10-18 tablet by it y of mg tablet 00:00: 00:00 mouth [place] 00 :00 daily. [facility] DULoxetine 2022-0 Yes Univers 30 mg 5-09 ity of capsule 00:00: [place] 00 [facility] gabapentin 2022-0 Yes Univers 300 mg 5-09 ity of capsule 00:00: [place] 00 [facility] ondansetron 2022-0 Yes Univer s 4 mg tablet 5-09 ity of 00:00: [place] 00 [facility] DULoxetine 2022-0 Yes [facility] 30 mg 5-09 ity of capsule 00:00: [place] 00 [facility] gabapentin 2022-0 Yes [facility] 300 mg 5-09 ity of capsule 00:00: [place] 00 [facility] ondansetron 2022-0 Yes Univer s 4 mg tablet 5-09 ity of 00:00: [place] 00 [facility] DULoxetine 2022-0 Yes [facility] 30 mg 5-09 ity of capsule 00:00: [place] 00 [facility] gabapentin 2022-0 Yes [facility] 300 mg 5-09 ity of capsule 00:00: [place] 00 [facility] ondansetron 2022-0 Yes Univer s 4 mg tablet 5-09 ity of 00:00: [place] 00 [facility] DULoxetine 2022-0 Yes [facility] 30 mg 5-09 ity of capsule 00:00: [place] 00 [facility] gabapentin 2022-0 Yes [facility] 300 mg 5-09 ity of capsule 00:00: [place] 00 [facility] ondansetron 2022-0 Yes Univer s 4 mg tablet 5-09 ity of 00:00: [place] 00 [facility] DULoxetine 2022-0 Yes [facility] 30 mg 5-09 ity of capsule 00:00: [place] 00 [facility] gabapentin 2022-0 Yes [facility] 300 mg 5-09 ity of capsule 00:00: [place] 00 [facility] ondansetron 2022-0 Yes Univer s 4 mg tablet 5-09 ity of 00:00: [place] 00 [facility] DULoxetine 2022-0 Yes [facility] 30 mg 5-09 ity of capsule 00:00: [place] 00 [facility] gabapentin 2022-0 Yes [facility] 300 mg 5-09 ity of capsule 00:00: [place] 00 [facility] ondansetron 2022-0 Yes Univer s 4 mg tablet 5-09 ity of 00:00: [place] 00 [facility] DULoxetine 2022-0 Yes [facility] 30 mg 5-09 ity of capsule 00:00: [place] [address] Medical Branch gabapentin 2022-0 Yes [facility] 300 mg 5-09 ity of capsule 00:00: [place] [facility] ondansetron 2022-0 Yes Univer s 4 mg tablet 5-09 ity of 00:00: [place] [address] Medical Branch DULoxetine 2022-0 Yes [facility] 30 mg 5-09 ity of capsule 00:00: [place] 00 [facility] gabapentin 2022-0 Yes [facility] 300 mg 5-09 ity of capsule 00:00: [place] [address] Medical Branch ondansetron 2022-0 Yes Univer s 4 mg tablet 5-09 ity of 00:00: [place] [address] Medical Branch DULoxetine 2022-0 Yes [facility] 30 mg 5-09 ity of capsule 00:00: [place] [address] Medical Branch gabapentin 2022-0 Yes [facility] 300 mg 5-09 ity of capsule 00:00: [place] 00 [facility] ondansetron 2022-0 Yes Univer s 4 mg tablet 5-09 ity of 00:00: [place] 00 [facility] DULoxetine 2022-0 Yes [facility] 30 mg 5-09 ity of capsule 00:00: [place] [address] Medical Branch gabapentin 2022-0 Yes [facility] 300 mg 5-09 ity of capsule 00:00: [place] 00 [facility] ondansetron 2022-0 Yes Univer s 4 mg tablet 5-09 ity of 00:00: [place] [address] Medical Branch DULoxetine 2022-0 Yes [facility] 30 mg 5-09 ity of capsule 00:00: [place] [address] [facility] Branch gabapentin 2022-0 Yes [facility] 300 mg 5-09 ity of capsule 00:00: [place] 00 [facility] ondansetron 2022-0 Yes Univer s 4 mg tablet 09-18 ity of 00:00: [place] 00 [facility] DULoxetine 2022-0 2- No Univer s 30 mg 09-18 ity of capsule 00:00: 00:00 [place] 00 :00 Medical Branch gabapentin 2022-0 2022- No Univer s 300 mg 09-18 ity of capsule 00:00: 00:00 [place] 00 :00 Medical Branch ondansetron 2022-0 2022- No Unive rs 4 mg tablet 09-18 ity of 00:00: 00:00 [place] 00 :00 Medical Branch DULoxetine 2022-0 2- No Univer s 30 mg 09-18 ity of capsule 00:00: 00:00 [place] 00 :00 Medical Branch gabapentin 2022-0 2- No Univer s 300 mg 09-18 ity of capsule 00:00: 00:00 [place] 00 :00 Medical Branch ondansetron 2022-0 2- No Unive rs 4 mg tablet 09-18 ity of 00:00: 00:00 [place] 00 :00 Medical Branch DULoxetine 2022-0 2- No Univer s 30 mg 09-18 ity of capsule 00:00: 00:00 [place] 00 :00 [facility] Branch gabapentin 2022-0 2- No Univer s 300 mg 09-18 ity of capsule 00:00: 00:00 [place] 00 :00 [facility] Branch ondansetron 2022-0 2- No Unive rs 4 mg tablet 09-18 ity of 00:00: 00:00 [place] 00 :00 [facility] Branch DULoxetine 2022-0 2022- No Univer s 30 mg 09-18 ity of capsule 00:00: 00:00 [place] 00 :00 [facility] gabapentin 2022-0 2022- No Univer s 300 mg 09-18 ity of capsule 00:00: 00:00 [place] 00 :00 [facility] ondansetron 2022-0 2022- No Unive rs 4 mg tablet 09-18 ity of 00:00: 00:00 [place] 00 :00 [facility] Branch amLODIPine 2022-0 Yes Univers 5 mg tablet 09-01 ity of 00:00: [place] 00 [facility] amLODIPine 2022-0 Yes 5mg Take 5 mg Un sushant 5 mg tablet 4-22 by mouth. ity of 00:00: [place] [facility] amLODIPine 2022-0 Yes Univers 5 mg tablet 4-22 ity of 00:00: [place] [facility] amLODIPine 2022-0 Yes 5mg Take 5 mg Un sushant 5 mg tablet 4-22 by mouth. ity of 00:00: [place] [facility] amLODIPine 2022-0 Yes Univers 5 mg tablet 4-22 ity of 00:00: [place] [facility] amLODIPine 2022-0 Yes 5mg Take 5 mg Un sushant 5 mg tablet 4-22 by mouth. ity of 00:00: [place] [facility] amLODIPine 2022-0 Yes Univers 5 mg tablet 4-22 ity of 00:00: [place] [facility] amLODIPine 2022-0 Yes 5mg Take 5 mg Un sushant 5 mg tablet 4-22 by mouth. ity of 00:00: [place] [facility] amLODIPine 2022-0 Yes [facility] 5 mg tablet 4-22 ity of 00:00: [place] [facility] amLODIPine 2022-0 Yes 5mg Take 5 mg Un sushant 5 mg tablet 4-22 by mouth. ity of 00:00: [place] [facility] amLODIPine 2022-0 Yes [facility] 5 mg tablet 4-22 ity of 00:00: [place] [facility] amLODIPine 2022-0 Yes 5mg Take 5 mg Un sushant 5 mg tablet 4-22 by mouth. ity of 00:00: [place] [facility] amLODIPine 2022-0 Yes [facility] 5 mg tablet 4-22 ity of 00:00: [place] [facility] amLODIPine 2022-0 Yes 5mg Take 5 mg Un sushant 5 mg tablet 4-22 by mouth. ity of 00:00: [place] [facility] amLODIPine 2022-0 Yes [facility] 5 mg tablet 4-22 ity of 00:00: [place] [facility] amLODIPine 2022-0 Yes 5mg Take 5 mg Un sushant 5 mg tablet 4-22 by mouth. ity of 00:00: [place] [facility] amLODIPine 2022-0 Yes Univers 5 mg tablet 4-22 ity of 00:00: [place] [facility] amLODIPine 2022-0 Yes 5mg Take 5 mg Un sushant 5 mg tablet 4-22 by mouth. ity of 00:00: [place] 00 [facility] amLODIPine 2022-0 Yes Univers 5 mg tablet 09-01 ity of 00:00: [place] 00 [facility] amLODIPine 2022-0 Yes 5mg Take 5 mg Un sushant 5 mg tablet 22 by mouth. ity of 00:00: [place] 00 [facility] amLODIPine 2022-0 Yes Univers 5 mg tablet 09-01 ity of 00:00: [place] 00 [facility] amLODIPine 2022-0 Yes 5mg Take 5 mg Un sushant 5 mg tablet 09-01 by mouth. ity of 00:00: [place] 00 [facility] amLODIPine 2022-0 2022- No Univer s 5 mg tablet 09-01 ity of 00:00: 00:00 [place] 00 :00 Medical Branch amLODIPine 2022-0 2022- No 5mg Take 5 mg U nivers 5 mg tablet 09-01 by mouth. it y of 00:00: 00:00 [place] 00 :00 Medical Branch amLODIPine 2022-0 2022- No Univer s 5 mg tablet 09-01 ity of 00:00: 00:00 [place] 00 :00 Medical Branch amLODIPine 2022-0 2022- No 5mg Take 5 mg U nivers 5 mg tablet 09-01 by mouth. it y of 00:00: 00:00 [place] 00 :00 [facility] Branch amLODIPine 2022-0 2022- No Univer s 5 mg tablet 09-01 ity of 00:00: 00:00 [place] 00 :00 Medical Branch amLODIPine 2022-0 2022- No 5mg Take 5 mg U nivers 5 mg tablet 09-01 by mouth. it y of 00:00: 00:00 [place] 00 :00 Medical Branch amLODIPine 2022-0 2022- No Univer s 5 mg tablet 09-01 ity of 00:00: 00:00 [place] 00 :00 [facility] Branch amLODIPine 2022-0 2022- No 5mg Take 5 mg U nivers 5 mg tablet 09-0118 by mouth. it y of 00:00: 00:00 [place] 00 :00 [facility] buPROPion 2022-0 Yes [facility] XL 150 mg -20 ity of 24 hr 00:00: [place] tablet 00 Medical Branch buPROPion Yes Univers [...] ity of 24 hr 00:00: [place] tablet [facility] buPROPion Yes Univers XL 150 mg 4-20 ity of 24 hr 00:00: [place] tablet [facility] buPROPion Yes Univers XL 150 mg 4-20 ity of 24 hr 00:00: [place] tablet [facility] buPROPion Yes Univers XL 150 mg 4-20 ity of 24 hr 00:00: [place] tablet [facility] Branch buPROPion 2022- No 150mg Take 150 Un sushant XL 150 mg 4-20 04-21 mg by ity of 24 hr 00:00: 04:59 mouth. [place] tablet 00 :00 [facility] buPROPion 2022- No 150mg Take 150 Un sushant XL 150 mg 4-20 04-21 mg by ity of 24 hr 00:00: 04:59 mouth. [place] tablet 00 :00 [facility] Branch buPROPion 2022- No 150mg Take 150 Un sushant XL 150 mg 4-20 04-21 mg by ity of 24 hr 00:00: 04:59 mouth. [place] tablet 00 :00 [facility] buPROPion 2022- No 150mg Take 150 Un sushant XL 150 mg 4-20 04-21 mg by ity of 24 hr 00:00: 04:59 mouth. [place] tablet 00 :00 [facility] buPROPion 2022- No 150mg Take [...] hr 00:00: 00:00 mouth. [place] tablet 00 : Medical Branch carvediloL 2020-05 Yes 25mg Take [...] tablet by ity o f 00:00: mouth [place] (two) Medical times Branch daily. carvediloL 2020-05 Yes 25mg Take 1 Unive rs 25 mg 2-30 tablet by ity of tablet 00:00: mouth [place] (two) Medical times Branch daily with meals. losartan 50 2020-05 Yes 50mg Take 1 Univ ers mg tablet 2-30 tablet by ity o f 00:00: mouth [place] (two) Medical times Branch daily. carvediloL 2020-05- No 25mg Take 1 Univ ers 25 mg 2-30 10-18 tablet by ity of tablet 00:00: 00:00 mouth 2 [place] 00 :00 (two) Medical times Branch daily with meals. losartan 50 2020-05- No 50mg Take 1 Uni vers mg tablet 2-30 10-18 tablet by ity of 00:00: 00:00 mouth 2 [place] 00 :00 (two) Medical times Branch daily. carvediloL 2020-05- No 25mg Take 1 Univ ers 25 mg 2-30 10-18 tablet by ity of tablet 00:00: 00:[address] [place] [address] 00 :00 (two) Medical times Branch daily with meals. losartan 50 2020-05- No 50mg Take 1 Uni vers mg tablet 2-30 10-18 tablet by ity of 00:00: 00:00 mouth 2 [place] 00 :00 (two) Medical times Branch daily. carvediloL 2020-2021- No 25mg Take 1 Univ ers 25 mg 2-30 10-18 tablet by ity of tablet 00:00: 00:00 mouth 2 [place] 00 :00 (two) Medical times Branch daily with meals. losartan 50 2020-2021- No 50mg Take 1 Uni vers mg tablet 2-30 10-18 tablet by ity of 00:00: 00:00 mouth 2 [place] 00 :00 (two) Medical times Branch daily. carvediloL 2020-2021- No 25mg Take 1 Univ ers 25 [...] 10 4-26 tablet by ity of mEq ( 00:00: mouth [place] mg) SR 00 daily. 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 Influenza Virus 2021-06-11 Completed Universit y of Vaccine 00:00:00 [facility] Influenza Virus 2021-06-11 Completed Universit y of Vaccine 00:00:00 [facility] Influenza Virus 2021-06-11 Completed Universit y of Vaccine 00:00:00 [facility] Influenza Virus 2021-06-11 Completed Universit y of Vaccine 00:00:00 [facility] Influenza Virus 2021-06-11 Completed Universit y of Vaccine 00:00:00 [facility] Influenza Virus 2021-06-11 Completed Universit y of Vaccine 00:00:00 [facility] Influenza Virus 2021-06-11 Completed Universit y of Vaccine 00:00:00 [facility] Influenza Virus 2021-06-11 Completed Universit y of Vaccine 00:00:00 [facility] Influenza Virus 2021-06-11 Completed Universit y of Vaccine 00:00:00 [facility] Influenza Virus 2021-06-11 Completed Universit y of Vaccine 00:00:00 [facility] Influenza Virus 2021-06-11 Completed Universit y of Vaccine 00:00:00 [facility] Influenza Virus 2021-06-11 Completed Universit y of Vaccine 00:00:00 [facility] Influenza Virus 2021-06-11 Completed Universit y of Vaccine 00:00:00 [facility] Influenza Virus 2021-06-11 Completed Universit y of Vaccine 00:00:00 [facility] Influenza Virus 2021-06-11 Completed Universit y of Vaccine 00:00:00 [facility] Influenza Virus 2021-06-11 Completed Universit y of Vaccine 00:00:00 [facility] Influenza Virus 2021-06-11 Completed Universit y of Vaccine 00:00:00 [facility] Influenza Virus 2021-06-11 Completed Universit y of Vaccine 00:00:00 [facility] Influenza Virus 2021-06-11 Completed Universit y of Vaccine 00:00:00 [facility] Influenza Virus 2021-06-11 Completed Universit y of Vaccine 00:00:00 [facility] Influenza Virus 2021-06-11 Completed Universit y of Vaccine 00:00:00 [facility] Influenza Virus 2021-06-11 Completed Universit y of Vaccine 00:00:00 [facility] Influenza Virus 2021-06-11 Completed Universit y of Vaccine 00:00:00 [facility] Influenza Virus 2021-06-11 Completed Universit y of Vaccine 00:00:00 [facility] Influenza Virus 2021-06-11 Completed Universit y of Vaccine 00:00:00 [facility] Influenza Virus 2021-06-11 Completed Universit y of Vaccine 00:00:00 [facility] Influenza Virus 2021-06-11 Completed Universit y of Vaccine 00:00:00 [facility] Influenza Virus 2021-06-11 Completed Universit y of Vaccine 00:00:00 [place] [facility] Influenza Virus 2021-06-11 Completed Universit y of Vaccine 00:00:00 [facility] Influenza Virus 2021-06-11 Completed Universit y of Vaccine 00:00:00 [facility] Influenza Virus 2021-06-11 Completed Universit y of Vaccine 00:00:00 [place] [facility] Influenza Virus 2021-06-11 Completed Universit y of Vaccine 00:00:00 [facility] Influenza Virus 2021-06-11 Completed Universit y of Vaccine 00:00:00 [facility] Influenza Virus 2021-06-11 Completed Universit y of Vaccine 00:00:00 [facility] Influenza Virus 2021-06-11 Completed Universit y of Vaccine 00:00:00 [facility] Influenza Virus 2021-06-11 Completed Universit y of Vaccine 00:00:00 [facility] Influenza Virus 2021-06-11 Completed Universit y of Vaccine 00:00:00 [facility] Influenza Virus 2021-06-11 Completed Universit y of Vaccine 00:00:00 [facility] Influenza Virus 2020-05-19 Completed Universit y of Vaccine 00:00:00 [facility] Influenza Virus 2020-05-19 Completed Universit y of Vaccine 00:00:00 [facility] Influenza Virus 2020-05-19 Completed Universit y of Vaccine 00:00:00 [facility] Influenza Virus 2020-05-19 Completed Universit y of Vaccine 00:00:00 [place] [facility] Influenza Virus 2020-05-19 Completed Universit y of Vaccine 00:00:00 [facility] Influenza Virus 2020-05-19 Completed Universit y of Vaccine 00:00:00 [facility] Influenza Virus 2020-05-19 Completed Universit y of Vaccine 00:00:00 [facility] Influenza Virus 2020-05-19 Completed Universit y of Vaccine 00:00:00 [facility] Influenza Virus 2020-05-19 Completed Universit y of Vaccine 00:00:00 [facility] Influenza Virus 2020-05-19 Completed Universit y of Vaccine 00:00:00 [facility] Influenza Virus 2020-05-19 Completed Universit y of Vaccine 00:00:00 [facility] Influenza Virus 2020-05-19 Completed Universit y of Vaccine 00:00:00 [place] [facility] Influenza Virus 2020-05-19 Completed Universit y of Vaccine 00:00:00 [place] [facility] Influenza Virus 2020-05-19 Completed Universit y of Vaccine 00:00:00 [place] [facility] Influenza Virus 2020-05-19 Completed Universit y of Vaccine 00:00:00 [place] [facility] Influenza Virus 2020-05-19 Completed Universit y of Vaccine 00:00:00 [facility] Influenza Virus 2020-05-19 Completed Universit y of Vaccine 00:00:00 [facility] Influenza Virus 2020-05-19 Completed Universit y of Vaccine 00:00:00 [facility] Influenza Virus 2020-05-19 Completed Universit y of Vaccine 00:00:00 [facility] Influenza Virus 2020-05-19 Completed Universit y of Vaccine 00:00:00 [facility] Influenza Virus 2020-05-19 Completed Universit y of Vaccine 00:00:00 [facility] Influenza Virus 2020-05-19 Completed Universit y of Vaccine 00:00:00 [facility] Influenza Virus 2020-05-19 Completed Universit y of Vaccine 00:00:00 [facility] Influenza Virus 2020-05-19 Completed Universit y of Vaccine 00:00:00 [facility] Influenza Virus 2020-05-19 Completed Universit y of Vaccine 00:00:00 [facility] Influenza Virus 2020-05-19 Completed Universit y of Vaccine 00:00:00 [facility] Influenza Virus 2020-05-19 Completed Universit y of Vaccine 00:00:00 [facility] Influenza Virus 2020-05-19 Completed Universit y of Vaccine 00:00:00 [facility] Influenza Virus 2020-05-19 Completed Universit y of Vaccine 00:00:00 [facility] Influenza Virus 2020-05-19 Completed Universit y of Vaccine 00:00:00 [facility] Influenza Virus 2020-05-19 Completed Universit y of Vaccine 00:00:00 [facility] Influenza Virus 2020-05-19 Completed Universit y of Vaccine 00:00:00 [facility] Influenza Virus 2020-05-19 Completed Universit y of Vaccine 00:00:00 [facility] Influenza Virus 2020-05-19 Completed Universit y of Vaccine 00:00:00 [facility] Influenza Virus 2020-05-19 Completed Universit y of Vaccine 00:00:00 [place] [facility] Influenza Virus 2020-05-19 Completed Universit y of Vaccine 00:00:00 [facility] Influenza Virus 2020-05-19 Completed Universit y of Vaccine 00:00:00 [facility] Influenza Virus 2020-05-19 Completed Universit y of Vaccine 00:00:00 [facility] Influenza Virus 2020-05-19 Completed Universit y of Vaccine 00:00:00 [facility] Influenza Virus 2020-05-19 Completed Universit y of Vaccine 00:00:00 [facility] Influenza Virus 2020-05-16 Completed Universit [...] (ADACEL) 2019-05-21 Completed University of VACCINE 00:00:00 [facility] TDAP (ADACEL) 2019-05-21 Completed University of VACCINE 00:00:00 [facility] TDAP (ADACEL) 2019-05-21 Completed University of VACCINE 00:00:00 [facility] TDAP (ADACEL) 2019-05-21 Completed University of VACCINE 00:00:00 [facility] TDAP (ADACEL) 2019-05-21 Completed University of VACCINE 00:00:00 [facility] TDAP (ADACEL) 2019-05-21 Completed University of VACCINE 00:00:00 [facility] TDAP (ADACEL) 2019-05-21 Completed University of VACCINE 00:00:00 [facility] TDAP (ADACEL) 2019-05-21 Completed University of VACCINE 00:00:00 [facility] TDAP (ADACEL) 2019-05-21 Completed University of VACCINE 00:00:00 [facility] TDAP (ADACEL) 2019-05-21 Completed University of VACCINE 00:00:00 [facility] TDAP (ADACEL) 2019-05-21 Completed University of VACCINE 00:00:00 [facility] TDAP (ADACEL) 2019-05-21 Completed [facility] of VACCINE 00:00:00 [facility] TDAP (ADACEL) 2019-05-21 Completed University of VACCINE 00:00:00 [facility] TDAP (ADACEL) 2019-05-21 Completed University of VACCINE 00:00:00 [facility] TDAP (ADACEL) 2019-05-21 Completed University of VACCINE 00:00:00 [facility] TDAP (ADACEL) 2019-05-21 Completed [facility] VACCINE 00:00:00 [facility] TDAP (ADACEL) 2019-05-21 Completed [facility] of VACCINE 00:00:00 [facility] TDAP (ADACEL) 2019-05-21 Completed [facility] VACCINE 00:00:00 [facility] TDAP (ADACEL) 2019-05-21 Completed [facility] VACCINE 00:00:00 [facility] TDAP (ADACEL) 2019-05-21 Completed [facility] of VACCINE 00:00:00 [facility] TDAP (ADACEL) 2019-05-21 Completed [facility] of VACCINE 00:00:00 [facility] TDAP (ADACEL) 2019-05-21 Completed [facility] of VACCINE 00:00:00 [facility] TDAP (ADACEL) 2019-05-21 Completed [facility] of VACCINE 00:00:00 [facility] TDAP (ADACEL) 2019-05-21 Completed [facility] of VACCINE 00:00:00 [facility] TDAP (ADACEL) 2019-05-21 Completed [facility] of VACCINE 00:00:00 [facility] TDAP (ADACEL) 2019-05-21 Completed [facility] of VACCINE 00:00:00 [facility] TDAP (ADACEL) 2019-05-21 Completed [facility] of VACCINE 00:00:00 [facility] TDAP (ADACEL) 2019-05-21 Completed [facility] of VACCINE 00:00:00 [facility] TDAP (ADACEL) 2019-05-21 Completed [facility] of VACCINE 00:00:00 [facility] TDAP (ADACEL) 2019-05-21 Completed [facility] of VACCINE 00:00:00 [facility] TDAP (ADACEL) 2019-05-21 Completed [facility] of VACCINE 00:00:00 [facility] TDAP (ADACEL) 2019-05-21 Completed [facility] of VACCINE 00:00:00 [facility] TDAP (ADACEL) 2019-05-21 Completed [facility] of VACCINE 00:00:00 [facility] TDAP (ADACEL) 2019-05-21 Completed [facility] of VACCINE 00:00:00 [facility] TDAP (ADACEL) 2019-05-21 Completed [facility] of VACCINE 00:00:00 [facility] TDAP (ADACEL) 2019-05-21 Completed [facility] of VACCINE 00:00:00 [facility] TDAP (ADACEL) 2019-05-21 Completed [facility] of VACCINE 00:00:00 [facility] TDAP (ADACEL) 2019-05-21 Completed [facility] of VACCINE 00:00:00 [facility] TDAP (ADACEL) 2019-05-21 Completed [facility] of VACCINE 00:00:00 [facility] TDAP (ADACEL) 2019-05-21 Completed [facility] of VACCINE 00:00:00 [facility] Influenza Virus 2019-02-06 Completed Universit [...] Vaccine Quad .5 mL 00:00:00 [facility] Influenza Virus 2019-02-06 Completed Universit y of Vaccine Quad .5 mL 00:00:00 [facility] Influenza Virus 2019-02-06 [...] y of Vaccine Quad .5 mL 00:00:00 [facility] 6+ MO Branch Influenza Virus 2019-02-06 Completed Universit y of Vaccine Quad .5 mL 00:00:00 [facility] Influenza Virus 2019-02-06 Completed Universit y of Vaccine Quad .5 mL 00:00:00 [facility] Influenza Virus 2019-02-06 Completed Universit y of Vaccine Quad .5 mL 00:00:00 [facility] Influenza Virus 2019-02-06 Completed Universit y of Vaccine Quad .5 mL 00:00:00 [facility] Influenza Virus 2019-02-06 [...] y of Vaccine Quad .5 mL 00:00:00 [facility] Vital Signs Vital Name Observation Time Observation Value Comments Source Systolic blood 2022-05-05 22:05:00 126 mm[Hg] Univer sity of pressure [facility] Diastolic blood 2022-05-05 22:05:00 75 mm[Hg] Unive rsity of [facility] Heart rate 2022-05-05 22:05:00 99 /min [facility] ty [facility] Respiratory rate 2022-05-05 22:05:00 16 /min [facility] Oxygen saturation in 2022-05-05 22:05:00 99 /min [facility] Arterial blood by [facility] Pulse oximetry Branch Body temperature 2022-05-05 18:24:00 37.11 Irene [facility] Body height 2022-05-05 18:24:[address] [facility] Body weight 2022-05-05 18:24:00 54.432 kg [facility] BMI 2022-05-05 18:24:00 22.67 kg/m2 [facility] Systolic blood 2022-04-26 14:28:00 135 mm[Hg] Univer sity of pressure [facility] Diastolic blood 2022-04-26 14:28:00 95 mm[Hg] Unive rsity of pressure [facility] Heart rate 2022-04-26 14:28:00 93 /min [facility] Body temperature 2022-04-26 14:28:00 36.89 Irene [facility] Res[facility] rate 2022-04-26 14:28:00 18 /min [facility] Body height 2022-04-26 14:28:00 154.9 cm Universi ty [facility] Body weight 2022-04-26 14:28:00 54.432 kg [facility]i [facility] BMI 2022-04-26 14:28:00 22.67 kg/m2 [facility] Oxygen saturation in 2022-04-26 14:28:00 100 /min [facility] Arterial blood by [place] [facility] P[facility]xim[facility] Systolic blood 2022-04-26 00:21:00 151 mm[Hg] Univer sity of pressure [facility] Diastolic blood 2022-04-26 00:21:00 98 mm[Hg] Unive rsity of pressure [facility] Heart rate 2022-04-26 00:21:00 98 /min Universi ty of [facility] Body temperature 2022-04-26 00:21:00 36.72 Irene Univ ersity of [facility] Respiratory rate 2022-04-26 00:21:00 18 /min Univ ersity of [facility] Body height 2022-04-26 00:21:00 154.9 cm [facility]i ty [facility] Body weight 2022-04-26 00:21:00 54.432 kg [facility] BMI 2022-04-26 00:21:00 22.67 kg/m2 [facility] ty [facility] Oxygen saturation in 2022-04-26 00:21:00 100 /min [facility] Arterial blood by [place] [facility] Systolic blood 2022-04-09 14:39:00 122 mm[Hg] Univer sity of pressure [facility] Diastolic blood 2022-04-09 14:39:00 84 mm[Hg] Unive rsity of pressure [facility] Heart rate 2022-04-09 14:39:00 96 /min [facility]i ty [facility] Body height 2022-04-09 14:39:00 154.9 cm [facility] Body weight 2022-04-09 14:39:00 60.328 kg [facility] BMI 2022-04-09 14:39:00 25.13 kg/m2 [facility] Oxygen saturation in 2022-04-09 14:39:00 98 /min [facility] Arterial blood by [place] [facility] Systolic blood 2022-04-07 22:43:36 131 mm[Hg] Univer sity of pressure [facility] Diastolic blood 2022-04-07 22:43:36 83 mm[Hg] Unive rsity of pressure [facility] Heart rate 2022-04-07 22:43:36 113 /min Universi ty [facility] Respiratory rate 2022-04-07 22:43:36 18 /min Univ ersity of [facility] Oxygen saturation in 2022-04-07 22:43:36 97 /min University of Arterial blood by [facility] Pulse oximetry Branch Body temperature 2022-04-07 19:41:00 37.17 Irene Univ ersity of [facility] Body height 2022-04-07 19:41:00 154.9 cm [facility]i [facility] Body weight 2022-04-07 19:41:00 60.328 kg [facility] BMI 2022-04-07 19:41:00 25.13 kg/m2 [facility] Systolic blood 2022-03-24 19:00:00 125 mm[Hg] Univer sity of pressure [facility] Diastolic blood 2022-03-24 19:00:00 86 mm[Hg] Unive rsity of pressure [facility] Heart rate 2022-03-24 19:00:00 93 /min [facility]i ty [facility] Respiratory rate 2022-03-24 19:00:00 17 /min Univ ersity of [facility] Oxygen saturation in 2022-03-24 19:00:00 97 /min University of Arterial blood by [facility] Pulse oximetry Branch Body temperature 2022-03-24 13:33:00 36.78 Irene Univ ersity of [facility] Systolic blood 2022-03-15 19:23:00 128 mm[Hg] Univer sity of pressure [facility] Diastolic blood 2022-03-15 19:23:00 89 mm[Hg] Unive rsity of pressure [facility] Heart rate 2022-03-15 19:23:00 104 /min Universi ty [facility] Body weight 2022-03-15 19:23:00 60.328 kg [facility]i ty [facility] BMI 2022-03-15 19:23:00 25.13 kg/m2 [facility] Oxygen saturation in 2022-03-15 19:23:00 98 /min [facility] of Arterial blood by [place] [facility] Pulse oximetry [facility] Systolic blood 2022-03-15 15:02:00 115 mm[Hg] Univer sity of pressure [facility] Diastolic blood 2022-03-15 15:02:00 70 mm[Hg] Unive rsity of pressure [facility] Heart rate 2022-03-15 15:02:00 85 /min [facility]i ty [facility] Respiratory rate 2022-03-15 15:02:00 20 /min Univ ersity of [facility] Oxygen saturation in 2022-03-15 15:02:00 99 /min [facility] of Arterial blood by [place] [facility] P[facility] Body temperature 2022-03-15 13:38:00 36.94 Irene Univ ersity of [facility] Body height 2022-03-15 13:38:00 154.9 cm Universi ty [facility] Body weight 2022-03-15 13:38:00 54.432 kg [facility]i ty [facility] BMI 2022-03-15 13:38:00 22.67 kg/m2 [facility] Systolic blood 2022-03-11 16:30:00 124 mm[Hg] Univer sity of pressure [facility] Diastolic blood 2022-03-11 16:30:00 88 mm[Hg] Unive rsity of pressure [facility] Heart rate 2022-03-11 16:30:00 93 /min [facility]i ty [facility] Body temperature 2022-03-11 16:30:00 36.67 Irene Univ ersity of [facility] Respiratory rate 2022-03-11 16:30:00 14 /min Univ ersity of [facility] Oxygen saturation in 2022-03-11 16:30:00 100 /min University of Arterial blood by [place] [facility] P[facility] Body height 2022-03-11 14:19:00 154.9 cm Universi ty [facility] Body weight 2022-03-11 14:19:00 58.968 kg [facility] BMI 2022-03-11 14:19:00 24.56 kg/m2 [facility] ty [facility] Systolic blood 2022-02-27 14:14:00 140 mm[Hg] Univer sity of pressure [facility] Diastolic blood 2022-02-27 14:14:00 90 mm[Hg] Unive rsity of pressure [facility] Heart rate 2022-02-27 14:14:00 103 /min [facility] Body height 2022-02-27 14:14:00 154.9 cm [facility] Body weight 2022-02-27 14:14:00 59.194 kg [facility] BMI 2022-02-27 14:14:00 24.66 kg/m2 [facility] Oxygen saturation in 2022-02-27 14:14:00 100 /min University of Arterial blood by [employer] [facility] Pulse oximetry Branch Systolic blood 2022-02-27 13:19:00 131 mm[Hg] Univer sity of pressure [facility] Diastolic blood 2022-02-27 13:19:00 86 mm[Hg] Unive rsity of pressure [facility] Heart rate 2022-02-27 13:19:00 102 /min [facility] Body temperature 2022-02-27 13:19:00 36.33 Irene [facility] Body height 2022-02-27 13:19:00 154.9 cm [facility] Body weight 2022-02-27 13:19:00 58.968 kg [facility] BMI 2022-02-27 13:19:00 24.56 kg/m2 [facility] Oxygen saturation in 2022-02-27 13:19:00 99 /min University of Arterial blood by [employer] yessi Pulse oximetry Branch Systolic blood 2022-02-21 08:06:00 135 mm[Hg] Univer sity of pressure [facility] Diastolic blood 2022-02-21 08:06:00 97 mm[Hg] Unive rsity of pressure [facility] Heart rate 2022-02-21 08:06:00 98 /min [facility]i ty [facility] Respiratory rate 2022-02-21 08:06:00 16 /min Univ ersity of [facility] Oxygen saturation in 2022-02-21 08:06:00 97 /min University of Arterial blood by [employer] yessi Pulse oximetry Branch Body temperature 2022-02-21 06:16:00 36.94 Irene Univ ersity of [facility] Body height 2022-02-21 06:16:00 154.9 cm Universi ty [facility] Body weight 2022-02-21 06:16:00 60.963 kg [facility]i ty [facility] BMI 2022-02-21 06:16:00 25.39 kg/m2 [facility] ty [facility] Systolic blood 2022 20:08:00 136 mm[Hg] Univer sity of pressure [facility] Diastolic blood 2022 20:08:00 96 mm[Hg] Unive rsity of pressure [facility] Heart rate 2022 20:08:00 100 /min Universi ty of [facility] Respiratory rate 2022 20:08:00 20 /min Univ ersity of [facility] Oxygen saturation in 2022 20:08:00 98 /min University Arterial blood by [facility] Pulse oximetry Branch Body temperature 2022 16:56:00 37.06 Irene Univ ersity of [facility] Body weight 2022 16:56:00 54.432 kg Universi ty [facility] BMI 2022 16:56:00 22.67 kg/m2 [facility] ty [facility] Systolic blood 2022-02-05 14:31:00 128 mm[Hg] Univer sity of pressure [facility] Diastolic blood 2022-02-05 14:31:00 84 mm[Hg] Unive rsity of pressure [facility] Heart rate 2022-02-05 14:31:00 86 /min Universi ty of [facility] Body temperature 2022-02-05 14:31:00 37.89 Irene Univ ers[facility] Respiratory rate 2022-02-05 14:31:00 18 /min Univ ersity of [facility] Body height 2022-02-05 14:31:00 154.9 cm [facility]i ty [facility] Body weight 2022-02-05 14:31:00 54.432 kg [facility]i ty [facility] BMI 2022-02-05 14:31:00 22.67 kg/m2 [facility] ty [facility] Oxygen saturation in 2022-02-05 14:31:00 98 /min University of Arterial blood by [facility] yessi Pulse oximetry Branch Systolic blood 2022-01-18 14:50:00 144 mm[Hg] Univer sity of pressure [facility] Diastolic blood 2022-01-18 14:50:00 92 mm[Hg] Unive rsity of pressure [facility] Heart rate 2022-01-18 14:50:00 94 /min Universi ty of [facility] Respiratory rate 2022-01-18 14:50:00 20 /min Univ ersity of [facility] Oxygen saturation in 2022-01-18 14:50:00 99 /min University of Arterial blood by [facility] Pulse oximetry Branch Body weight 2022-01-18 10:18:00 54.432 kg [facility]i ty [facility] BMI 2022-01-18 10:18:00 22.67 kg/m2 [facility] Body temperature 2022-01-18 10:15:00 36.72 Irene Univ [facility] Systolic blood 2022-01-15 15:48:26 125 mm[Hg] Univer sity of pressure [facility] Diastolic blood 2022-01-15 15:48:26 85 mm[Hg] Unive rsity of pressure [facility] Heart rate 2022-01-15 15:48:26 95 /min [facility]i ty [facility] Respiratory rate 2022-01-15 15:48:26 18 /min Univ ersity of [facility] Oxygen saturation in 2022-01-15 15:48:26 98 /min University of Arterial blood by [facility] Pulse oximetry Branch Body temperature 2022-01-15 13:32:00 37.11 Irene [facility] Body height 2022-01-15 13:32:00 154.9 cm [facility]i ty [facility] Body weight 2022-01-15 13:32:00 54.432 kg [facility] BMI 2022-01-15 13:32:00 22.67 kg/m2 [facility] Systolic blood 2022-01-09 00:37:11 127 mm[Hg] Univer sity of pressure [facility] Diastolic blood 2022-01-09 00:37:11 90 mm[Hg] Unive rsity of pressure [facility] Heart rate 2022-01-09 00:37:11 94 /min Universi ty of [facility] Body temperature 2022-01-09 00:37:11 37.11 Irene [facility] Respiratory rate 2022-01-09 00:37:11 16 /min [facility] O[facility] in 2022-01-09 00:37:11 97 /min [facility] Arterial blood by [facility] Pulse oximetry Branch Body height 2022-01-08 23:03:00 154.9 cm Universi ty of [facility] Body weight 2022-01-08 23:03:00 58.06 kg Universi ty [facility] BMI 2022-01-08 23:03:00 24.19 kg/m2 [facility] Systolic blood 2021-12-12 18:00:00 126 mm[Hg] Univer sity of [facility] Diastolic blood 2021-12-12 18:00:00 87 mm[Hg] Unive rsity of [facility] Heart rate 2021-12-12 18:00:00 86 /min Universi ty [facility] Body temperature 2021-12-12 18:00:00 36.89 Irnee [facility] Res[facility] rate 2021-12-12 18:00:00 18 /min [facility] Body height 2021-12-12 18:00:00 154.9 cm Universi ty [facility] Body weight 2021-12-12 18:00:00 57.153 kg Universi ty [facility] BMI 2021-12-12 18:00:00 23.81 kg/m2 [facility] Procedures Procedure Date / Time Performing Clinician Source Performed COMP. METABOLIC PANEL 2022-05-05 19:14:00 Karon Norton [facility] ([id number]) [facility] CBC WITH DIFF 2022-05-05 19:14:00 Karon Norton [facility] POCT TEST 2022-05-05 19:00:00 Karon Norton [facility] URINALYSIS 2022-05-05 18:58:00 Karon Norton [facility] CT ABDOMEN PELVIS WO 2022-04-26 15:11:00 Zion Bridges [facility] CONTRAST [facility] COMP. METABOLIC PANEL 2022-04-26 14:49:[address] [facility] ([id number]) [facility] CBC WITH DIFF 2022-04-26 14:49:00 [facility] 2022-04-26 14:49:00 [facility] POCT TEST 2022-04-26 14:45:00 Zion Bridges [facility] CONSENT/REFUSAL FOR 2022-04-26 14:22:29 Doctor Unassigned, No [facility] [place] DI[facility]NOSIS [facility] TREATMENT Name [facility] POCT TEST 2022-04-26 01:22:00 Zion Bridges [facility] ASSIGNMENT OF BENEFITS 2022-04-26 00:54:02 Doctor Unassigned, No [facility] URINALYSIS 2022-04-26 00:45:00 [facility] CONSENT/REFUSAL FOR 2022-04-26 00:16:47 Doctor Unassigned, No [facility] [place] [facility] BASIC METABOLIC PANEL 2022-04-07 22:35:00 Olamide Garvin [facility] (NA, K, CL, CO2, Medical Branch GLUCOSE, BUN, CREATININE, CA) CBC WITH DIFF 2022-04-07 22:35:00 Olamide Garvin [facility] URINALYSIS 2022-04-07 21:36:00 Olamide Garvin [facility] URINE DRUG (IMMUNOASSAY) 2022-04-07 21:36:00 Olamide Garvin [facility] [place] - COMPREHENSIVE DRUG Medical Bra nch SCREEN W/O REFLEX CONSENT/REFUSAL FOR 2022-04-07 19:29:15 Doctor Unassigned, No [facility] [place] [facility]RE[facility] POCT TEST 2022-03-24 14:07:00 Kellie Duncan [facility] CONSENT/REFUSAL FOR 2022-03-24 13:27:20 Doctor Unassigned, No [facility] [place] [facility]REAT[facility] Name [facility] CT ABDOMEN PELVIS WO 2022-03-15 14:09:04 Anna Gould [facility] URINALYSIS 2022-03-15 13:53:00 Anna Gould [facility] POCT TEST 2022-03-15 13:52:00 Anna Gould [facility] CONSENT/REFUSAL FOR 2022-03-15 13:37:02 Doctor Unassigned, No [facility] [place] DIAGNOSIS [facility] TREATMENT Name [facility] POCT TEST 2022-03-11 14:59:00 Angelica Viveros [facility] FLU VACC (), 6 2022-02-27 13:34:55 Vijay Martinez [facility] MO-64 YRS, .5ML, IM, Medical [facility] QUAD (FLUCELVAX) NOTICE OF PRIVACY 2022-02-21 06:06:30 Doctor Unassigned, No [facility] PRACTICES [facility] CONSENT/REFUSAL FOR 2022-02-21 06:03:41 Doctor Unassigned, No [facility] [place] [facility]REAT[facility] Name [facility] XR ANKLE <3 VW RIGHT 2022 17:56:42 Maggie Hamilton [facility] CT ABDOMEN PELVIS W 2022 17:44:17 Maggie Hamilton [facility] CT TRAUMA CERVICAL SPINE 2022 17:43:49 Maggie Hamilton [facility] WO CONTRAST [facility] POCT TEST 2022 17:27:00 Maggie Hamilton [facility] COMP. METABOLIC PANEL 2022 17:17:[address] [facility] ([id number]) [facility] CBC WITH DIFF 2022 17:17:00 Maggie Hamilton [facility] CONSENT/REFUSAL FOR 2022 16:53:13 Doctor Unassigned, No [facility] [place] DI[facility] TREATMENT Name [facility] US GALL BLADDER 2022-01-18 12:31:09 Bernardo Levy [place] [facility] US PELVIS COMPLETE WITH 2022-01-18 12:21:[address] [facility] TRANSVAGINAL [facility] CT ABDOMEN PELVIS W 2022-01-18 11:20:50 Melvin Zhao [facility] CONTRAST [facility] POCT TEST 2022-01-18 10:57:00 Jayy Kennedy [facility] COVID-19 (ID NOW RAPID 2022-01-18 10:57:00 Jayy Kennedy [facility] TESTING) Medical Branch URINALYSIS 2022-01-18 10:47:00 Jayy Kennedy [facility] LIPASE 2022-01-18 10:29:00 Jayy Kennedy [facility] TEST, SERUM 2022-01-18 10:29:00 KennedyJayy [facility] HEPATIC FUNCTION PANEL 2022-01-18 10:29:00 Jayy Kennedy [facility] ([id number]) (ALB,T.PRO,BILI [facility] T,BU/BC,ALT,AST,ALK PHOS) BASIC METABOLIC PANEL 2022-01-18 10:29:[address] [facility] (NA, K, CL, CO2, Medical Branch GLUCOSE, BUN, CREATININE, CA) CBC WITH DIFF 2022-01-18 10:29:00 Jayy Kennedy [facility] CONSENT/REFUSAL FOR 2022-01-18 10:13:31 Doctor Unassigned, No [facility] [place] [facility] Name [facility] CT HEAD WO CONTRAST 2022-01-15 15:22:[address] [facility] TEST, SERUM 2022-01-15 14:36:00 Danita [facility] BASIC METABOLIC PANEL 2022-01-15 14:36:00 Danita [facility] (NA, K, CL, CO2, [facility] GLUCOSE, BUN, CREATININE, CA) CBC WITH DIFF 2022-01-15 14:36:00 Danita [facility] CONSENT/REFUSAL FOR 2022-01-15 13:28:12 [facility] Name Medical Branch XR CERVICAL SPINE 4 VW 2022-01-09 00:29:16 Gabriela Humberto [facility] XR LUMBAR SPINE 4 VW 2022-01-09 00:29:16 Humberto Ochoa [facility] XR SPINE THORACIC 3 VW 2022-01-09 00:29:16 Gabriela [facility] URINALYSIS 2022-01-08 23:50:00 Gabriela Humberto [facility] CONSENT/REFUSAL FOR 2022-01-08 22:51:08 Doctor Unassigned, No Un [facility] DIAGNOSIS AND TREATMENT Name [facility] Branch GALV ONLY - VAGINAL 2021-12-12 18:37:00 [facility] PATHOGENS BY [facility] Medical [facility] ACID TESTING URINE CULTURE 2021-12-12 18:32:00 [facility] o f [facility] POCT TEST 2021-12-12 18:31:00 [facility] POCT URINALYSIS W/O 2021-12-12 18:31:00 [facility] SPECIFIC GRAVITY [facility] Plan of Care Planned Activity Planned Date Details Comments Source Future Scheduled 2029-05-21 DTaP,Tdap,and Td [facility] Test 00:00:00 Vaccines (2 - Td) Medical Br anch [code = DTaP,Tdap,and Td Vaccines (2 - Td)] Future Scheduled 2021-09-[address] [facility] Test 00:00:00 (procedure) [code = Medical Branch [id number]] Future Scheduled 2016-02-19 Screening for [facility] Test 00:00:00 malignant neoplasm Medical B ranch of cervix (procedure) [code = 120694940] Future Scheduled 2013 Hepatitis C [facility] Test 00:00:00 screening Medical Branch (procedure) [code = 790944783] Future Scheduled 2011 SARS-CoV-2 [facility] Test 00:00:00 (COVID-19) Vaccine Medical B ranch (1) [code = SARS-CoV-2 (COVID-19) Vaccine (1)] Future Scheduled 2006 HPV VACCINES (1 - [facility] [place] Test 00:00:00 2-dose series) [code Medical Branch = HPV VACCINES (1 - 2-dose series)] Encounters Start End Encounter Admission Attending Care Care Encounter Source Date/Time Date/Time Type Type Clinicians Facility Department ID 2021-03-14 Emergency [facility] [id number] Univers 03:14:31 ity of [facility] 2021-03-13 Emergency [facility] [id number] Univers 20:05:20 ity of [facility] 2021-03-13 Emergency [facility] [id number] Univers 12:48:28 ity of [facility] 2021-03-13 Emergency [facility] [id number] Univers 02:43:51 ity of [facility] 2021-03-13 Emergency [facility] [id number] Univers 00:27:09 ity of [facility] 2021-03-12 Emergency [facility] [id number] Univers 22:10:36 ity of [facility] 2021-03-12 Emergency [facility] [id number] Univers 20:04:05 ity of [facility] 2021-03-12 Emergency [facility] [id number] Univers 15:25:05 ity of [facility] 2021-03-12 Emergency [facility] [id number] Univers 11:43:36 ity of [facility] 2021-03-12 Emergency [facility] [id number] Univers 07:41:37 ity of [facility] 2021-03-12 Emergency [facility] [id number] Univers 05:43:47 ity of [facility] 2021-03-12 Emergency [facility] [id number] Univers 03:43:41 ity of [facility] 2021-03-12 Emergency [facility] [id number] Univers 01:31:27 ity of [facility] 2021-03-12 Emergency X [facility] ERT [id number] Univers 00:56:44 ity of [facility] 2021-03-12 Emergency [facility] [id number] Univers 00:56:31 ity of [facility] 2021-03-11 Emergency [facility] [id number] Univers 17:47:02 ity of [facility] 2021-03-11 Emergency [facility] [id number] Univers 16:27:15 ity of [facility] 2021-03-11 Emergency [facility] [id number] Univers 12:00:58 ity of [facility] 2021-03-11 Emergency [facility] [id number] Univers 10:33:59 ity of [facility] 2021-03-11 Emergency [facility] [id number] Univers 01:36:52 ity of [facility] 2021-03-10 Emergency [facility] [id number] Univers 23:35:34 ity of [facility] 2021-03-10 Emergency [facility] [id number] Univers 19:06:16 ity of [facility] 2021-03-10 Emergency [facility] [id number] Univers 12:39:47 ity of [facility] 2021-03-10 Emergency [facility] [id number] Univers 06:54:04 ity of [facility] 2021-03-09 Outpatient P [facility] CHRIS [id number] Univers 13:25:44 ity of [facility] 2021-03-09 Outpatient P [facility] [id number] Univers 13:08:01 ity of [facility] 2021-03-09 Outpatient P [facility] [id number] Univers 12:37:25 ity of [facility] 2021-03-09 Outpatient P [facility] CH[facility] [id number] Univers 11:51:20 ity of [facility] 2022-05-15 2022-05-15 Outpatient R ANGELA [facility] [id number] Univers 09:20:00 09:20:00 BENNETT ity of [facility] 2022-05-05 2022-05-05 Emergency X NORTON, [facility] ERT [id number] Univers 12:26:00 16:11:00 KARON ity of [facility] 2022-05-05 2022-05-05 Emergency Norton, [facility] 1.2.840.114 [id number] Univers 12:26:00 16:11:00 Karon LULU 350.1.13.10 i ty [facility] 4.2.7.2.686 [facility] [id number] [place] [address] Branch 2022-05-01 2022-05-01 Outpatient R PRASANNA VARGAS [facility] [id number] Univers 00:00:00 00:00:00 ankush [facility] 2022-04-26 2022-04-26 Emergency X SINGER [facility] ERT [id number] Univers 08:30:00 09:59:00 ZION lechgua [facility] 2022-04-26 2022-04-26 Emergency [facility] 1.2.667.481 [id number] Univers 08:30:00 09:59:00 Zion LAWSON 350.1.13.10 i ty of [facility] 4.2.7.2.686 [facility] [id number] [address] 2022-04-25 2022-04-25 Emergency X GUTIERREZ [facility] ERT [id number] Univers 18:23:00 21:55:00 KENNEDY chino [facility] 2022-04-25 2022-04-25 Emergency [facility] 1..291.639 [id number] Univers 18:23:00 21:55:00 Tammieleonid LAWSON 350.1.13.10 i ty of [place] 4.2.7.2.686 [facility] [id number] [address] 2022-04-19 2022-04-19 Outpatient R ISIDROChino [facility] [id number] Univers 10:00:00 10:00:00 JEREMY chino [facility] 2022-04-12 2022-04-12 Telephone [facility] 1..868.287 [id number] Univers 00:00:00 00:00:00 [employer] 350.1.13.10 it y [facility] 4.2.7.2.686 [place] as TOÑO?BLEA [id number] Il whit [place] [address] [place] [address] MEDICAL OFFICE BUILDING 2022-04-11 2022-04-11 Telephone Patti [facility] 1.2.840.114 [id number] Univers 00:00:00 00:00:[address] [facility] [employer] 350.1.13.10 ity of [place] 4.2.7.2.686 [place] as TOÑO?BLEA [id number] [place] whit [address] OFFICE [facility] 2022-04-10 2022-04-10 Telephone [facility] 1.2.333.386 [id number] Univers 00:00:00 00:00:00 Kassandra HEALTH 350.1.13.10 it y of [place] 4.2.7.2.686 Martin as TOÑO?BLEA [id number] [address] OFFICE [facility] 2022-04-09 2022-04-09 Office [facility] 1.2.840.114 [id number] Univers 09:30:00 09:30:00 Visit [employer] 350.1.13.10 it y of [place] 4.2.7.2.686 [place] as TOÑO?BLEA [id number] [address] OFFICE [facility] 2022-04-09 2022-04-09 Outpatient [facility] [id number] Univers 09:30:00 09:21:44 [facility] 2022-04-07 2022-04-[address] [facility] [place] ERT [id number] Univers 13:41:00 17:49:00 OLAMIDE [facility] 2022-04-07 2022-04-[address] [facility] 1.2.700.150 [id number] Univers 13:41:00 17:49:00 Olamide LAWSON 350.1.13.10 ity of [place] 4.2.7.2.686 [place] [facility] [id number] [address] 2022-04-04 2022-04-04 Telephone [facility] 1.2.929.642 [id number] Univers 00:00:00 00:00:00 [employer] 350.1.13.10 it y of [place] 4.2.7.2.686 [place] as TOÑO?BLEA [id number] [address] OFFICE [facility] 2022-04-02 2022-04-02 Outpatient [facility] [id number] Univers 10:30:00 10:30:00 KASSANDRA [facility] 2022-03-28 2022-03-28 Patient Doctor [facility] 1.2.840.114 [id number] Univers 00:00:00 00:00:00 Secure Msg Unassigned, [facility] 350.1.13.10 ity of [place]UL[place] 4.2.7.2.686 [place] as TOÑO?BLEA [id number] [address] 2022-03-24 2022-03-24 Emergency X PERLA, [facility] ERT [id number] Univers 07:35:00 13:11:00 KELLIE ity [facility] 2022-03-24 2022-03-24 [facility] 1.2.169.498 [id number] Univers 07:35:00 13:11:00 Kellie [facility] 350.1.13.10 ity of [place].2.7.2.686 [place] [id number] [address] 2022-03-23 2022-03-23 Outpatient R [facility] [id number] Univers 10:30:00 10:30:00 KASSANDRA ity [facility] 2022-03-23 2022-03-23 Telephone [facility] 1.2.840.114 [id number] Univers 00:00:00 00:00:00 [facility] 350.1.13.10 ity of [place] 4.2.7.2.686 [place] as TOÑO?BLEA [id number] [address] 2022-03-22 2022-03-22 Telephone [facility] 1.2.840.114 [id number] Univers 00:00:00 00:00:00 [facility] 350.1.13.10 ity [facility] 4.2.7.2.686 [place] as TOÑO?BLEA [id number] [address] 2022-03-22 2022-03-22 Refill [facility] 1.2.840.114 [id number] Univers 00:00:00 00:00:00 [facility] 350.1.13.10 ity of [facility] 4.2.7.2.686 [place] as TOÑO?BLEA [id number] Il whit MINOR [address] [facility] 2022-03-21 2022-03-21 Telephone Patti [facility] 1.2.840.114 [id number] Univers 00:00:00 00:00:00 [facility] 350.1.13.10 ity of [place] 4.2.7.2.686 [place] as TOÑO?BLEA [id number] Il whit [address] 2022-03-15 2022-03-15 Outpatient R ARJUN [facility] [id number] Univers 14:00:00 14:36:19 [facility] it[facility] o f [facility] 2022-03-15 2022-03-15 Office [facility] 1.2.840.114 [id number] Univers 14:00:00 14:36:19 Visit Reji [place] 350.1.13.10 ity [facility] 4.2.7.2.686 [place] [facility] [id number] Il dicaliyah NAL 059 [facility] 2022-03-15 2022-03-15 Emergency X BRYANNA [facility] ERT [id number] Univers 08:40:00 10:47:00 ANNA [facility] 2022-03-15 2022-03-15 Emergency [facility] 1.2.840.114 [id number] Univers 08:40:00 10:47:00 Anna [facility] 350.1.13.10 i ty of [place] 4.2.7.2.686 [place] [id number] [address] 2022-03-14 2022-03-14 Outpatient R PRASANNA VARGAS [facility] [id number] Univers 10:30:00 10:30:00 ity [facility] 2022-03-11 2022-03-11 Emergency X FELICE [facility] ERT [id number] Univers 09:22:00 12:15:00 SHINTA itchino [facility] 2022-03-11 2022-03-11 Emergency [facility] 1.2.840.114 [id number] Univers 09:22:00 12:15:00 Angelica LAWSON 350.1.13.10 i ty of [facility] 4.2.7.2.686 [place] [facility] [id number] [place] 639714 [place] 2022-03-06 2022-03-06 Outpatient Farzana PUGH [facility] [id number] Univers 08:30:00 08:30:00 KASASNDRA lechuga [facility] 2022-03-02 2022-03-02 Telephone Patti [facility] 1.2.840.114 [id number] Univers 00:00:00 00:00:00 [facility] 350.1.13.10 ity of [place] 4.2.7.2.686 [place] TOÑO?BLEA [id number] [address] MEDICAL OFFICE [facility] 2022-02-27 2022-02-27 Outpatient Farzana PUGH [facility] [id number] Univers 09:30:00 09:49:42 KASSANDRA lechuga [facility] 2022-02-27 2022-02-27 Office [facility] 1.2.840.114 [id number] Univers 09:30:00 09:49:[address] [facility] 350.1.13.10 it y of [place] 4.2.7.2.686 [place] as TOÑO?BLEA [id number] [address] OFFICE [facility] 2022-02-27 2022-02-27 Office Juan [facility] 1.2.840.114 [id number] Univers 08:00:00 09:12:17 Visit [facility] 350.1.13.10 it y of [place] 4.2.7.2.686 [place] as TOÑO?BLEA [id number] [address] MEDICAL OFFICE [facility] 2022-02-26 2022-02-26 Outpatient Farzana PUGH [facility] [id number] Univers 11:30:00 11:30:00 KASSANDRA ity [facility] 2022-02-21 2022-02-21 Emergency X ALFONSO [facility] ERT [id number] Univers 01:20:00 03:44:00 MAGGIE lechuga [facility] 2022-02-21 2022-02-21 Emergency Alfonso [facility] 1.2.840.114 [id number] Univers 01:20:00 03:44:00 Maggie Marleny LAWSON 350.1.13.10 ity of [facility] 4.2.7.2.686 [facility] [id number] [address] 2022-02-19 2022-02-19 Patient Robb [facility] 1.2.840.114 [id number] Univers 00:00:00 00:00:00 Secure Msg Kendal Amaral HEALTH 350.1.13.10 ity of [place] 4.2.7.2.686 [place] as TOÑO?BLEA [id number] [address] OFFICE [facility] 2022-02-19 2022-02-19 Patient Robb [facility] 1.2.840.114 [id number] Univers 00:00:00 00:00:00 Secure Mslaila Amaral HEALTH 350.1.13.10 ity of [place] 4.2.7.2.686 [place] as TOÑO?BLEA [id number] [address] 2022-02-19 2022-02-19 Patient Suzette [facility] 1.2.745.081 [id number] Univers 00:00:00 00:00:00 Secure Msg Ade SAM 350.1.13.10 ity of [place].2.[id number] [address] 2022 2022 Emergency [facility] ERT [id number] Univers 11:58:00 15:13:00 MAGGIE ity of [facility] 2022 2022 Emergency [facility] 1.2.840.114 [id number] Univers 11:58:00 15:13:00 Maggie LAWSON 350.1.13.10 ity of [place] 4.2.7.2.686 [facility] [id number] [address] 2022-02-09 2022-02-09 Outpatient R BRANDON [facility] [id number] Univers 09:00:00 09:00:00 CRICKET davis [facility] 2022-02-06 2022-02-06 Outpatient R JUAN, [facility] [id number] Univers 10:00:00 10:00:00 VIJAY lechuga [facility] 2022-02-05 2022-02-05 Nurse Nurse, Filippo [facility] 1.2.840.114 [id number] Univers 09:45:00 10:05:00 Visit [facility] 350.1.13.10 ity of [place] 4.2.7.2.686 [place] as TOÑO?BLEA [id number] Il dical KNEY [address] MEDICAL OFFICE BUILDING 2022-02-05 2022-02-05 Outpatient R OLIVER [facility] [id number] Univers 09:20:00 09:20:00 FLACO ity o f [facility] 2022-01-26 2022-01-26 Case Prasanna Vargas [facility] 1.2.349.332 [id number] Univers 00:00:00 00:00:00 Management Cam LULU 350.1.13.10 ity [facility] 4.2.7.2.686 [place] [id number] Il dicaliyah [facility] [address] BUILDING 2022-01-22 2022-01-22 Outpatient R JUAN [facility] [id number] Univers 11:00:00 11:00:00 VIJAY lechuga [facility] 2022-01-18 2022-01-18 Emergency X GARDENIA [facility] ERT [id number] Univers 05:17:00 10:25:00 BERNARDO lechuga [facility] 2022-01-18 2022-01-18 Emergency Jayy Kennedy W TRAUMA 1.2.840.11 4 [id number] Univers 05:17:00 10:25:00 Bernardo Levy CYCLONE 350.1.13.10 ity [facility].2.7.2.686 [place] [id number] [address] 2022-01-15 2022-01-15 Emergency X DANITA [facility] ERT [id number] Univers 08:34:00 10:49:00 MAURA lechuga [facility] 2022-01-15 2022-01-15 Emergency Larry Perez R [facility] 1.2.840.1 14 [id number] Univers 08:34:00 10:49:00 Maura Samayoa 350.1.13.10 ity [facility] 4.2.7.2.686 [facility] [id number] [address] 2022-01-08 2022-01-08 Emergency X GABRIELA, [facility] ERT [id number] Univers 18:04:00 20:09:00 HUMBERTO [facility] 2022-01-08 2022-01-08 Emergency [facility] 1.2.840.114 [id number] Univers 18:04:00 20:09:00 Humberto LAWSON 350.1.13.10 i ty [facility] 4.2.7.2.686 [facility] [id number] [address] 2021-12-12 2021-12-12 Outpatient Farzana CARNES [facility] [id number] Univers 13:30:00 13:40:21 TETO [facility] 2021-12-12 2021-12-12 Office Prasanna Vargas Jm [facility] 1.2.840.114 [id number] Univers 13:30:00 13:40:21 Visit Teto [facility].13.10 [facility] 4.2.7.2.686 [facility] PROFESSIO [id number] [address] 2021-12-12 2021-12-12 Outpatient Farzana CARNES [facility] [id number] Univers 13:30:00 13:40:21 TETO [facility] 2021-12-12 2021-12-12 Outpatient Farzana CARNES [facility] [id number] Univers 13:30:00 13:40:21 TETO [facility] 2021-12-11 2021-12-11 Outpatient R SUZETTE [facility] [id number] Univers 16:15:00 16:15:00 ADE [facility] 2021-12-05 2021-12-05 Outpatient Farzana OMALLEY [facility] [id number] Univers 14:15:00 14:15:00 ROMULO ity [facility] 2021-11-28 2021-11-28 Emergency X ERROL, [facility] ERT [id number] Univers 08:49:00 11:02:00 KARON ity [facility] 2021-11-28 2021-11-28 Emergency Errol, [facility] 1.2.840.114 [id number] Univers 08:49:00 11:02:00 Karon [facility] 350.1.13.10 i ty of [place] 4.2.7.2.686 [facility] [id number] [address] 2021-11-24 2021-11-24 Emergency X DEV, Kaycee [facility] ERT [id number] Univers 18:14:00 21:04:00 ity [facility] 2021-11-24 2021-11-24 Emergency Dev Kaycee [facility] 1.2.840.114 [id number] Univers 18:14:00 21:04:00 Sharlene LAWSON 350.1.13.10 i ty of [place] 4.2.7.2.686 [facility] [id number] [address] 2021-11-24 2021-11-24 Telephone Brandon [facility] 1.2.840.114 [id number] Univers 00:00:00 00:00:00 Cricket Lopez CANAL TENDER 350.1.13.10 ity [facility] 4.2.7.2.686 [place] as MATERNAL [id number] Med ical & CHILD 107 [facility] 2021-11-20 2021-11-20 Patient Robb [facility] 1.2.840.114 [id number] Univers 00:00:00 00:00:00 Secure [facility] 350.1.13.10 ity [facility] 4.2.7.2.686 [place] as TOÑO?BLEA [id number] [place] whit [address] MEDICAL OFFICE BUILDING 2021-11-19 2021-11-19 JORDAN Ramirez 1.2.840.114 [id number] Univers 00:00:00 00:00:00 (Out) Leslie ARCE 350.1.13.10 it y of [facility] 4.2.7.2.686 [place] as [id number] [address] 2021-11-18 2021-11-18 Outpatient [facility] [id number] Univers 10:41:40 23:59:00 FLACO lechuga o f [facility] 2021-11-18 2021-11-18 Hospital [facility] 1.2.136.403 [id number] Univers 10:41:40 23:59:00 Encounter [facility] 350.1.13.10 ity of [place] 4.2.7.2.686 [place] as TOÑO?BLEA [id number] [facility] [address] MEDICAL OFFICE [facility] 2021-11-18 2021-11-18 Urgent [facility] 1.2.840.114 [id number] Univers 10:20:00 10:53:20 Care [facility] 350.1.13.10 i ty of [place] 4.2.7.2.686 [place] as TOÑO?BLEA [id number] [facility] [address] MEDICAL OFFICE [facility] 2021-11-09 2021-11-09 Outpatient R APURVA [facility] [id number] Univers 10:30:00 10:30:00 CELINA lechuga [facility] 2021-10-25 2021-10-25 Urgent Ileana Medrano [facility] ..840.114 [id number] Univers 13:20:00 13:20:00 Care [facility] 350.1.13.10 ity of [place] 4.2.7.2.686 [place] as TOÑO?BLEA [id number] [address] MEDICAL OFFICE [facility] 2021-10-25 2021-10-25 Outpatient R MITCHELL [facility] [id number] Univers 13:20:00 12:47:59 ILEANA lechuga [facility] 2021-10-25 2021-10-25 Patient [facility] 1.2.840.114 [id number] Univers 00:00:00 00:00:00 [facility] 350.1.13.10 ity of [place] 4.2.7.2.686 [place] as TOÑO?BLEA [id number] Il whit MINOR 044 [facility] OFFICE [facility] 2021-10-25 2021-10-25 Telephone Cotta, [facility] 1.2.211.010 [id number] Univers 00:00:00 00:00:00 Vijay HEALTH 350.1.13.10 it y of [place] 4.2.7.2.686 [place] as TOÑO?BLEA [id number] [facility] 044 [facility] OFFICE [facility] 2021-10-25 2021-10-25 Telephone Provider, [facility] [id number] Univers 00:00:00 00:00:00 Ang Db HEALTH [id number] it y of Urgent Care ESTELL MANOR [id number] [place] TOÑO?BLEA [phone] [facility] 370 [facility] OFFICE [facility] 2021-10-25 2021-10-25 Telephone Nurse, Filippo [facility] [id number] Univers 00:00:00 00:00:00 Db Urgent HEALTH [id number] ity of Care ESTELL MANOR [id number] [place] TOÑO?BLEA [phone] [facility] 370 [facility] OFFICE [facility] 2021-10-24 2021-10-24 Outpatient Farz[facility] [id number] Univers 10:15:00 10:15:00 ROMULO [facility] 2021-10-24 2021-10-24 Outpatient Farzana OMALLEY [facility] [id number] Univers 10:15:00 10:15:00 ROMULO [facility] 2021-10-11 2021-10-11 Outpatient Farzana OMALLEY [facility] [id number] Univers 09:30:00 09:30:00 ROMULO [facility] 2021-10-10 2021-10-10 Outpatient PRASANNA LOOMIS [facility] [id number] Univers 13:30:00 13:30:[facility]-10 2021-10-10 Outpatient PRASANNA LOOMIS [facility] [id number] Univers 13:30:00 13:30:00 ity of [facility] 2021-10-10 2021-10-10 Outpatient R PRASANNA VARGAS [facility] [id number] Univers 13:30:00 13:30:00 ity of [facility] 2021-10-10 2021-10-10 Out[facility] [id number] Univers 13:30:00 13:30:00 ity of [facility] 2021-10-10 2021-10-10 Outpatient R PRASANNA VARGAS [facility] [id number] Univers 13:30:00 13:30:00 ity of [facility] 2021-10-10 2021-10-[address] [facility] [id number] Univers 13:30:00 13:30:00 ity of [facility] 2021-10-10 2021-10-[address] [facility] [id number] Univers 13:30:00 13:30:00 ity of [facility] 2021-10-05 2021-10-05 [facility] 1.2.840.114 [id number] Univers 00:00:00 00:00:00 Secure g Kendal Amaral HEALTH 350.1.13.10 ity of [place] 4.2.7.2.686 [place] as TOÑO?BLEA [phone] [address] MEDICAL OFFICE [facility] 2021-10-05 2021-10-05 Patient Robb [facility] 1.2.840.114 [id number] Univers 00:00:00 00:00:00 Secure Msg Kendal Amaral HEALTH 350.1.13.10 ity of [place] 4.2.7.2.686 [place] as TOÑO?BLEA [phone] [address] MEDICAL OFFICE [facility] 2021-10-04 2021-10-04 Pre Visit HILARIO Rodriguez 1.2.796.760 [id number] Univers 00:00:00 00:00:00 Outreach Melia TELLO 350.1.13.10 [place] [phone] [address] 2021-09-28 2021-09-28 Office [facility] 1.2.840.114 [id number] Univers 13:30:00 13:45:00 Visit Celina Cannon [facility] 350.1.13.10 [facility] 4.2.7.2.[place] [id number] [address] 2021-09-28 2021-09-28 [facility] [id number] Univers 13:30:00 13:30:00 CELINA [facility] 2021-09-28 2021-09-28 Outpatient [facility] [id number] Univers 13:30:00 13:30:00 [facility]-09-28 2021-09-28 [facility] 1.2.840.114 [id number] Univers 00:00:00 00:00:00 Secure Msg Celina Cannon FLACO 350.1.13.10 [facility] 4.2.7.2.[place] [phone] [address] 2021-09-27 2021-09-27 Outpatient R DEYVI, [facility] [id number] Univers 14:00:00 14:00:00 TETO [facility] 2021-09-27 2021-09-27 Outpatient R ADITI [facility] [id number] Univers 09:30:00 09:30:00 [facility] 2021-09-27 2021-09-27 Outpatient R ADITI [facility] [id number] Univers 09:30:00 09:30:00 [facility] 2021-09-27 2021-09-27 [facility] [id number] Univers 09:30:00 09:30:00 [facility] 2021-09-26 2021-09-26 Outpatient R AKINLYNSEY, [facility] [id number] Univers 10:45:00 10:45:00 CRICKET fitzpatrick f [facility] 2021-09-26 2021-09-26 Outpatient R AKINSIMALIK, [facility] [id number] Univers 10:45:00 10:45:00 CRICKET ity o f [facility] 2021-09-26 2021-09-26 Patient Juan [facility] 1.2.840.114 [id number] Univers 00:00:00 00:00:00 Secure Ms Vijay HEALTH 350.1.13.10 ity of [place] 4.2.7.2.686 Martin as TOÑO?BLEA [phone] [facility] [address] MEDICAL OFFICE [facility] 2021-09-26 2021-09-26 Patient Juan [facility] 1.2.840.114 [id number] Univers 00:00:00 00:00:00 Secure Ms Vijay HEALTH 350.1.13.10 ity of [place] 4.2.7.2.686 [place] as TOÑO?BLEA [phone] [facility] 044 [facility] OFFICE [facility] 2021-09-25 2021-09-25 Urgent Flaco Boyd [facility] 1.2.840. 114 [id number] Univers 10:20:00 11:10:42 [facility] 350.1.13.10 ity of [place] 4.2.7.2.686 [place] as TOÑO?BLEA [phone] [facility] 370 [facility] OFFICE [facility] 2021-09-25 2021-09-25 Outpatient R [facility] [id number] Univers 10:20:00 11:10:42 FLACO davis [facility] 2021-09-25 2021-09-25 Outpatient R OLIVER [facility] [id number] Univers 10:20:00 10:20:00 FLACO maradiagay o susan [facility] 2021-09-25 2021-09-25 Outpatient R PRASANNA VARGAS [facility] [id number] Univers 10:00:00 10:00:00 ity of [facility] 2021-09-25 2021-09-25 Telephone [facility] .2.840.114 [id number] Univers 00:00:00 00:00:00 [facility] 350.1.13.10 i [facility] 4.2.7.2.686 [place] TOÑO?BLEA [phone] Me dical KNEY [address] MEDICAL OFFICE [facility] 2021-09-25 2021-09-25 Patient Prasanna Vargas [facility] 1.2.595.417 [id number] Univers 00:00:00 00:00:00 Secure Msg Cam [place] 350.1.13.10 ity of [place] [phone] Me dical NAL 134 [facility] 2021-09-25 2021-09-25 Telephone Brandon [facility] 1.2.840.114 [id number] Univers 00:00:00 00:00:00 Cricket Lopez CANAL TENDER 350.1.13.10 ity of [facility] 4.2.7.2.686 [place] as MATERNAL [phone] Med ical & CHILD 107 [facility] 2021-09-25 2021-09-25 Telephone Apurva [facility] 1.2.604.854 [id number] Univers 00:00:00 00:00:00 Celina SAM 350.1.13.10 ity of [facility] 4.2.7.2.[place] [phone] [address] 2021-09-15 2021-09-15 Patient Robb [facility] 1.2.840.114 [id number] Univers 00:00:00 00:00:00 Secure Msg Kendal Amaral HEALTH 350.1.13.10 ity of [place] 4.2.7.2.686 [place] as TOÑO?BLEA [id number] Il dical MIKI [address] MEDICAL OFFICE [facility] 2021-09-15 2021-09-15 Patient Robb [facility] 1.2.840.114 [id number] Univers 00:00:00 00:00:00 Secure Msg Kendal Munir HEALTH 350.1.13.10 ity of [place] 4.2.7.2.686 [place] as TOÑO?BLEA [phone] Il dical KNEY 044 [facility] OFFICE [facility] 2021-09-15 2021-09-15 Patient Robb [facility] 1.2.840.114 [id number] Univers 00:00:00 00:00:00 Secure Msg Kendal Amaral HEALTH 350.1.13.10 [facility] 4.2.7.2.686 [place] TOÑO?BLEA [id number] [address] MEDICAL OFFICE BUILDING 2021-09-14 2021-09-14 Patient Juan [facility] 1.2.840.114 [id number] Univers 00:00:00 00:00:00 Secure Msg Vijay HEALTH 350.1.13.10 [facility] 4.2.7.2.686 [place] TOÑO?BLEA [id number] [address] OFFICE [facility] 2021-09-12 2021-09-12 Outpatient Farzana MIXON [facility] [id number] Univers 10:30:00 10:30:00 CELINA lechuga [facility] 2021-09-12 2021-09-12 Outpatient Farzana MIXON [facility] [id number] Univers 10:30:00 10:30:00 CELINA lechuga [facility] 2021-09-12 2021-09-12 Patient Meet [facility] 1.2.840.114 [id number] Univers 00:00:00 00:00:00 Secure Msg Daniel CRAIG 350.1.13.10 ity of [place] [phone] [facility] [place] [address] [facility] 2021-09-12 2021-09-12 Orders Doctor JORDAN 1.2.840.114 [id number] Univers 00:00:00 00:00:00 Only Unassigned, YAZMIN 350.1.13.10 ity of [place] [facility] 4.2.7.2.686 [place] as [phone] [facility] [address] 2021-09-12 2021-09-12 Patient Juan [facility] 1.2.840.114 [id number] Univers 00:00:00 00:00:00 Secure Msg Vijay HEALTH 350.1.13.10 [facility] 4.2.7.2.686 [place] as TOÑO?BLEA [phone] [address] MEDICAL OFFICE BUILDING 2021-09-05 2021-09-05 Patient Juan [facility] 1.2.840.114 [id number] Univers 00:00:00 00:00:00 Secure Msg Vijay HEALTH 350.1.13.10 ity of [place] 4.2.7.2.686 [place] as TOÑO?BLEA [id number] Il whit [place] [address] [place] [address] OFFICE [facility] 2021-09-04 2021-09-04 Patient Juan [facility] 1.2.840.114 [id number] Univers 00:00:00 00:00:00 Secure Msg Vijay HEALTH 350.1.13.10 ity of [place] 4.2.7.2.686 [place] as TOÑO?BLEA [phone] Il whit [place] [address] [place] [address] OFFICE [facility] 2021-08-25 2021-08-25 Telephone Aditi [facility] 1.2.840.114 [id number] Univers 00:00:00 00:00:00 Dania L HEALTH 350.1.13.10 it y of [place] 4.2.7.2.686 [place] as TOÑO?BLEA [id number] Il whit [place] 198 [facility] OFFICE [facility] 2021-08-25 2021-08-25 Patient Juan [facility] 1.2.840.114 [id number] Univers 00:00:00 00:00:00 Secure Msg Vijay HEALTH 350.1.13.10 ity of [place] 4.2.7.2.686 [place] as TOÑO?BLEA [phone] Il whit [place] [address] [place] [address] OFFICE [facility] 2021-08-24 2021-08-24 Telephone Juan [facility] 1.2.481.650 [id number] Univers 00:00:00 00:00:00 Vijay HEALTH 350.1.13.10 it y of [place] 4.2.7.2.686 [place] as TOÑO?BLEA [phone] Il whit [place] [address] [place] [address] OFFICE [facility] 2021-08-24 2021-08-24 Patient Juan [facility] 1.2.840.114 [id number] Univers 00:00:00 00:00:00 Secure Msg Vijay HEALTH 350.1.13.10 ity of [place] 4.2.7.2.686 [place] as TOÑO?BLEA [id number] Me whit [place] [address] [place] [address] MEDICAL OFFICE BUILDING 2021-08-23 2021-08-23 [facility] 1.2.840.114 [id number] Univers 00:00:00 00:00:00 Secure Msg Vijay HEALTH 350.1.13.10 ity of [place] 4.2.7.2.686 [place] as TOÑO?BLEA [phone] Me whit [place] [address] [place] [address] MEDICAL OFFICE BUILDING 2021-08-23 2021-08-23 Telephone [facility] 1.2.975.987 [id number] Univers 00:00:00 00:00:00 Vijay HEALTH 350.1.13.10 it y of [place] 4.2.7.2.686 [place] as TOÑO?BLEA [phone] Il whit [place] [address] [place] [address] OFFICE [facility] 2021-08-22 2021-08-22 Telephone [facility] 1.2.700.035 [id number] Univers 00:00:00 00:00:00 Vijay HEALTH 350.1.13.10 it y of [place] 4.2.7.2.686 [place] as TOÑO?BLEA [phone] Il whit [place] [address] [place] [address] OFFICE [facility] 2021-08-22 2021-08-22 Patient Jaja [facility] 1.2.840.114 [id number] Univers 00:00:00 00:00:00 Secure [facility] Hallie HEALTH 350.1.13.10 ity of [place] 4.2.7.2.686 [place] as TOÑO?BLEA [id number] Il whit [place] [address] [place] [address] MEDICAL OFFICE BUILDING 2021-08-18 2021-08-18 Telephone [facility] 1.2.901.670 [id number] Univers 00:00:00 00:00:00 Vijay HEALTH 350.1.13.10 it y of [place] 4.2.7.2.686 [place] as TOÑO?BLEA [phone] Il whit [place] [address] [place] [address] MEDICAL OFFICE BUILDING 2021-08-17 2021-08-17 Outpatient Farzana MIXON [facility] [id number] Univers 09:00:00 09:00:00 CELINA lechuga [facility] 2021-08-17 2021-08-17 Outpatient Farzana MIXON [facility] [id number] Univers 09:00:00 09:00:00 CELINA lechuga [facility] 2021-08-16 2021-08-16 Patient Juan [facility] 1.2.840.114 [id number] Univers 00:00:00 00:00:00 Secure Ms Vijay Veracyte 350.1.13.10 ity of [place] 4.2.7.2.686 [place] as TOÑO?BLEA [phone] Il whit [place] [address] [place] [address] OFFICE [facility] 2021-08-15 2021-08-15 Office [facility] 1.2.840.114 [id number] Univers 15:30:00 16:16:42 Visit [facility] 350.1.13.10 it y of [place] 4.2.7.2.686 [place] TOÑO?BLEA [phone] Il whit [place] [address] [facility] OFFICE [facility] 2021-08-15 2021-08-15 Outpatient [facility] [id number] Univers 15:30:00 16:16:42 [facility] 2021-08-15 2021-08-15 Outpatient Farzana [facility] [id number] Univers 15:30:00 15:30:00 [facility] 2021-08-15 2021-08-15 Outpatient Farzana KIM [facility] [id number] Univers 15:30:00 15:30:00 [facility] 2021-08-15 2021-08-15 Outpatient Farzana KIM [facility] [id number] Univers 15:30:00 15:30:00 [facility] 2021-08-15 2021-08-15 Emergency X DANITA [facility] ERT [id number] Univers 09:27:00 12:26:00 MAURA [facility] 2021-08-15 2021-08-15 Emergency Danita [facility] 1.2.805.010 [id number] Univers 09:27:00 12:26:00 Marua LAWSON 350.1.13.10 ity of [place] [id number] [place] [address] [address] 2021-08-15 2021-08-15 Emergency X DANITA, [facility] ERT [id number] Univers 09:27:00 12:26:00 MAURA lechuga [facility] 2021-08-14 2021-08-14 Outpatient R JUAN [facility] [id number] Univers 13:25:00 23:59:00 VIJAY lechuga [facility] 2021-08-14 2021-08-14 Outpatient R VÍCTORKassandra [facility] [id number] Univers 13:25:00 23:59:00 VIJAY lechuga [facility] 2021-08-14 2021-08-14 Outpatient R VÍCTORKassandra [facility] [id number] Univers 13:25:00 13:25:00 VIJAY lechuga [facility] 2021-08-14 2021-08-14 Outpatient R JUAN [facility] [id number] Univers 12:19:07 13:24:00 VIJAY lechuga [facility] 2021-08-14 2021-08-14 Outpatient R JUAN [facility] [id number] Univers 12:19:07 13:24:00 VIJAY lechuga [facility] 2021-08-14 2021-08-14 Psychological Operations Lab, Ang - Db [facility] 1.2.840.1 14 [id number] Univers 12:30:00 13:01:24 Visit Vijay Martinez [facility] 350.1.13.10 ity of [place] 4.2.7.2.686 [place] as TOÑO?BLEA [id number] [address] OFFICE [facility] 2021-08-14 2021-08-14 Psychological Operations Lab, Ang - Db [facility] 1.2.840.1 14 [id number] Univers 12:30:00 12:45:00 Visit Vijay Martinez HEALTH 350.1.13.10 ity of [place] 4.2.7.2.686 [place] as TOÑO?BLEA [id number] [address] OFFICE [facility] 2021-08-14 2021-08-14 Office [facility] 1.2.840.114 [id number] Univers 11:30:00 12:31:12 Visit Vijay HEALTH 350.1.13.10 it y [facility] 4.2.7.2.686 [place] as TOÑO?BLEA [phone] Me dical KNMAYR [address] [facility] OFFICE [facility] 2021-08-14 2021-08-14 [facility] [id number] Univers 11:30:00 12:31:12 VIJAY itchino [facility] 2021-08-14 2021-08-[address] [facility] 1.2.840.114 [id number] Univers 00:00:00 00:00:00 Secure Msg Vijay Veracyte 350.1.13.10 ity of [place] 4.2.7.2.686 [place] as TOÑO?BLEA [phone] Il dicaliyah [place] [address] [place] [address] OFFICE [facility] 2021-08-09 2021-08-09 Outpatient R JUDY [facility] [id number] Univers 14:45:00 14:45:00 ADÁN ity [facility] 2021-08-09 2021-08-09 Telephone [facility] 1.2.889.401 [id number] Univers 00:00:00 00:00:00 Vijay HEALTH 350.1.13.10 it y [facility] 4.2.7.2.686 [place] as TOÑO?BLEA [phone] Il dicaliyah [place] [address] [place] [address] 2021-08-08 2021-08-08 Out[facility] [id number] Univers 11:30:00 23:59:00 VIJAY itchino [facility] 2021-08-08 2021-08-08 Hospital [facility] 1.2.840.114 [id number] Univers 11:30:00 23:59:00 Encounter Vijay HEALTH 350.1.13.10 ity of [place] 4.2.7.2.686 [place] as TOÑO?BLEA [phone] Il dical MIKI 808 [facility] OFFICE [facility] 2021-08-08 2021-08-08 Outpatient R [facility] [id number] Univers 11:15:00 11:15:00 VIJAY lechuga [facility] 2021-08-08 2021-08-08 Outpatient R JUAN [facility] [id number] Univers 11:00:00 11:00:00 VIJAY lechuga [facility] 2021-08-08 2021-08-08 Patient Doctor ORTEGA 1.2.840.114 [id number] Univers 00:00:00 00:00:00 Secure Msg Unassigned, YAZMIN 350.1.13.[address] [facility] 4.2.7.2.686 [place] as [phone] [address] 2021-08-07 2021-08-07 Office Juan [facility] 1.2.840.114 [id number] Univers 09:30:00 10:23:21 Visit Vijay Veracyte 350.1.13.10 it y [facility] 4.2.7.2.686 [place] as TOÑO?BLEA [phone] Il whit [place] [address] [place] [address] MEDICAL OFFICE [facility] 2021-08-07 2021-08-07 Outpatient R JUAN [facility] [id number] Univers 09:30:00 10:23:21 VIJAY lechuga [facility] 2021-08-07 2021-08-07 Outpatient R JUAN [facility] [id number] Univers 09:30:00 09:30:00 VIJAY lechuga [facility] 2021-08-07 2021-08-07 Patient Juan [facility] 1.2.840.114 [id number] Univers 00:00:00 00:00:00 Secure Msg Vijay HEALTH 350.1.13.10 ity of [place] 4.2.7.2.686 Martin as TOÑO?BLEA [phone] Il dical IVÁNMARY [address] [place] [address] MEDICAL OFFICE BUILDING 2021-08-07 2021-08-07 Patient Juan [facility] 1.2.840.114 [id number] Univers 00:00:00 00:00:00 Secure Msg Vijay HEALTH 350.1.13.10 ity of [place] 4.2.7.2.686 Martin as TOÑO?BLEA [phone] Me dic[address] MEDICAL OFFICE BUILDING 2021-08-07 2021-08-07 Patient Apurva [facility] 1.2.840.114 [id number] Univers 00:00:00 00:00:00 Secure Msg Celina A FLACO 350.1.13.10 ity of [facility] 4.2.7.2.686 [place] [phone] [address] 2021-08-04 2021-08-04 Outpatient R SHADIA [facility] [id number] Univers 10:00:00 10:00:00 PETRA ity of [facility] 2021-08-04 2021-08-04 Patient Juan [facility] 1.2.840.114 [id number] Univers 00:00:00 00:00:00 Secure Msg Vijay HEALTH 350.1.13.10 ity of [place] 4.2.7.2.686 [place] as TOÑO?BLEA [id number] [address] MEDICAL OFFICE [facility] 2021-08-03 2021-08-03 Office SOURAV Diza 1.2.840.114 [id number] Univers 11:00:00 12:48:43 Visit Jayy Y 350.1.13.10 it y of [facility] 4.2.7.2.686 [place] as BANK [id number] [address] 2021-08-03 2021-08-03 Outpatient R [facility] [id number] Univers 11:00:00 12:48:43 JAYY hireny [facility] 2021-08-03 2021-08-03 Outpatient R [facility] [id number] Univers 11:00:00 11:00:00 JAYY hireny of [facility] 2021-08-03 2021-08-03 Patient Apurva [facility] 1.2.840.114 [id number] Univers 00:00:00 00:00:00 Secure Msg Celina A FLACO 350.1.13.10 ity of [facility] 4.2.7.2.686 [place] [id number] [address] 2021-08-02 2021-08-02 Telephone [facility] 1.2.522.940 [id number] Univers 00:00:00 00:00:00 Vijay [facility] 350.1.13.10 it y of [place] 4.2.7.2.686 [place] as TOÑO?BLEA [phone] Il whit [place] [address] MEDICAL OFFICE [facility] 2021-07-21 2021-07-21 Outpatient R DARRION WYATT [facility] [id number] Univers 08:00:00 08:52:53 DARRION WYATT [facility] 2021-07-17 2021-07-17 Outpatient Farzana MARTINEZ [facility] [id number] Univers 11:30:00 11:30:00 VIJAY [facility] 2021-06-19 2021-06-19 [facility] 1.2.003.699 [id number] Univers 00:00:00 00:00:00 [facility] 350.1.13.10 it y of [place] 4.2.7.2.686 [place] as TOÑO?BLEA [phone] [facility] IV[address] OFFICE [facility] 2021-06-09 2021-06-09 Telephone [facility] 1.2.347.773 [id number] Univers 00:00:00 00:00:00 Reji [place] 350.1.13.10 ity [facility] [place] [phone] Il whit [facility] 2021-06-06 2021-06-06 Outpatient R DEYVI [facility] [id number] Univers 11:15:00 11:15:00 TETO lechuga [facility] 2021-06-06 2021-06-06 Outpatient R DEYVI [facility] [id number] Univers 11:15:00 11:15:00 TETO lechuga [facility] 2021-06-02 2021-06-02 Outpatient R CRISTINA [facility] [id number] Univers 15:45:00 15:45:00 WONDIFUL ity o f [facility] 2021-05-31 2021-05-31 Outpatient R JUAN [facility] [id number] Univers 10:00:00 10:46:31 VIJAY lechuga [facility] 2021-05-31 2021-05-31 Office Juan [facility] [id number] Univers 10:00:00 10:46:31 Visit Vijay HEALTH 350.1.13.10 it [facility] 4.2.7.2.686 [place] TOÑO?BLEA [id number] [address] MEDICAL OFFICE [facility] 2021-05-31 2021-05-31 Outpatient R JUAN [facility] [id number] Univers 10:00:00 10:46:31 VIJAY lechuga [facility] 2021-05-31 2021-05-31 Orders Doctor JORDAN [id number] Univers 00:00:00 00:00:00 Only Unassigned, YAZMIN 350.1.13.10 ity of [place] [facility] 4.2.7.2.686 [place] as [id number] [address] 2021-05-26 2021-05-26 Telephone [facility] [id number] Univers 00:00:00 00:00:00 Skylar [facility] 350.1.13.10 i ty of [place] 4.2.7.2.686 [place] TOÑO?BLEA [id number] [address] OFFICE [facility] 2021-05-26 2021-05-26 Patient Prasanna Vargas [facility] [id number] Univers 00:00:00 00:00:00 Secure Msg Cam [place]ELL [place] 350.1.13.10 ity [place] [id number] [facility] 134 [facility] 2021-05-25 2021-05-25 Telemedici [facility] [id number] Univers 14:00:00 14:30:00 ne Visit Skylar [facility] HEALTH 350.1.13.10 ity of [place] [id number] [place] TOÑO?BLEA [id number] [address] MEDICAL OFFICE BUILDING 2021-05-25 2021-05-25 [facility] [id number] Univers 14:00:00 14:00:00 SKYLAR itchino [facility] 2021-05-25 2021-05-25 Outpatient R YANELI [facility] [id number] Univers 14:00:00 14:00:00 SKYLAR itchino [facility] 2021-05-24 2021-05-24 Telephone Ponce [facility] [id number] Univers 00:00:00 00:00:00 Rad LAWSON 350.1.13.10 it[place] of [place] [phone] Il whit MELISSA 059 [facility] 2021-05-23 2021-05-23 Outpatient R [facility] [id number] Univers 10:00:00 10:00:00 ity of [facility] 2021-05-23 2021-05-23 Outpatient R [facility] [id number] Univers 10:00:00 10:00:00 ity [facility] 2021-05-16 2021-05-16 Outpatient R DEYVI [facility] [id number] Univers 09:00:00 09:00:00 TETO ity [facility] 2021-05-12 2021-05-12 Orders Doctor JORDAN 1.2.840.114 [id number] Univers 00:00:00 00:00:00 Only Unassigned, YAZMIN 350.1.13.[address] [facility] 4.2.7.2.686 [place] as [phone] [address] 2021-05-10 2021-05-10 Outpatient R CRISTINA [facility] [id number] Univers 13:00:00 13:00:00 WONDIFUL ity o f [facility] 2021-05-10 2021-05-10 Out[facility] [id number] Univers 13:00:00 13:00:00 WONDIFUL ity o f [facility] 2021-05-09 2021-05-09 Telephone Prasanna Vargas [facility] 1.2.840.114 [id number] Univers 00:00:00 00:00:00 Jm LAWSON 350.1.13.10 i ty [facility] [place] [id number] Il dical NAL 134 [facility] 2021-05-09 2021-05-09 Patient [facility] 1.2.840.114 [id number] Univers 00:00:00 00:00:00 Secure Msg Rad LAW[place] 350.1.13.10 it[place] of [place] [id number] [facility] 059 [facility] 2021-05-08 2021-05-08 Outpatient Farzana ARANA [facility] [id number] Univers 16:00:00 16:00:00 [facility] 2021-05-08 2021-05-08 Outpatient Farzana ARANA [facility] [id number] Univers 16:00:00 16:00:00 JE lechuga [facility] 2021-05-08 2021-05-08 [facility] 1.2.840.114 [id number] Univers 00:00:00 00:00:00 Secure Msg Rad LAWSON 350.1.13.10 it[place] [id number] [place] 908089 [facility] 2021-05-08 2021-05-08 [facility] 1.2.840.114 [id number] Univers 00:00:00 00:00:00 Secure Msg Rad LAWSON 350.1.13.10 it[place] of [place] [phone] Il dicok NAL 9 [facility] 2021-05-03 2021-05-03 Outpatient [facility] [id number] Univers 11:15:36 23:59:00 REJI davis [facility] 2021-05-03 2021-05-03 [facility] 1.2.840.114 [id number] Univers 11:15:36 23:59:00 Encounter Arleyraheel LAWSON 350.1.13.10 ity of [place] [phone] [facility] 846 [facility] 2021-05-03 2021-05-03 Telephone [facility] 1.2.840.114 [id number] Univers 00:00:00 00:00:00 Wondiful A HEALTH 350.1.13.10 ity of [place] 4.2.7.2.686 [place] as TOÑO?BLEA [id number] [address] OFFICE [facility] 2021-05-02 2021-05-02 Telephone [facility] 1.2.195.377 [id number] Univers 00:00:00 00:00:00 Sendzohra [facility] [place] 350.1.13.10 ity of [facility] [place] [id number] [facility] 059 [facility] 2021-05-02 2021-05-02 Patient [facility] 1.2.840.114 [id number] Univers 00:00:00 00:00:00 Secure Msg Wondiful A HEALTH 350.1.13.10 [facility] 4.2.7.2.686 [place] TOÑO?BLEA [phone] [address] OFFICE [facility] 2021-05-02 2021-05-02 Telephone [facility] 1.2.840.114 [id number] Univers 00:00:00 00:00:00 Wondiful A HEALTH 350.1.13.10 ity of [place] 4.2.7.2.686 [place] as TOÑO?BLEA [id number] [address] OFFICE [facility] 2021-05-02 2021-05-02 Patient [facility] 1.2.840.114 [id number] Univers 00:00:00 00:00:00 Secure Msg Sendil [facility] [place] 350.1.13.10 ity of [place].2.[place] [facility] [phone] Me dical NAL 059 [facility] 2021-04-27 2021-04-27 Emergency X [facility] ERT [id number] Univers 14:24:00 15:49:00 MAGGIE ity [facility] 2021-04-27 2021-04-27 Emergency [facility] 1.2.840.114 [id number] Univers 14:24:00 15:49:00 Maggie LAWSON 350.1.13.10 ity of [place] [phone] [facility] [address] [place] 2021-04-27 2021-04-27 Laboratory Only, Ang Db Test [facility] 1.2.8 40.114 [id number] Univers 11:15:00 11:30:00 Only Unknown, Attending HEALTH 350.1.13.10 ity of Thony Johnson 4.2.7.2.686 [place] TOÑO?BLEA [id number] Il whit [place] [address] MEDICAL OFFICE [facility] 2021-04-27 2021-04-27 Outpatient R SIL [facility] [id number] Univers 11:15:00 11:15:00 [facility] 2021-04-27 2021-04-27 Orders Doctor JORDAN 1.2.840.114 [id number] Univers 00:00:00 00:00:00 Only Unassigned, YAZMIN 350.1.13.10 ity of [place] [facility] 4.2.7.2.686 [place] as [phone] [facility] 00[address] [place] 2021-04-20 2021-04-20 Outpatient R JUSTINE [facility] [id number] Univers 15:00:00 15:00:00 SCOTT lechuga [facility] 2021-04-13 2021-04-13 Patient Cristina [facility] 1.2.840.114 [id number] Univers 00:00:00 00:00:00 Secure Msg Wondiful A HEALTH 350.1.13.10 ity of [place] 4.2.7.2.686 [place] as TOÑO?BLEA [phone] [facility] 044 [facility] OFFICE [facility] 2021-04-12 2021-04-12 Telephone [facility] 1.2.840.114 [id number] Univers 00:00:00 00:00:00 Wondiful A HEALTH 350.1.13.10 ity of [place] 4.2.7.2.686 [place] as TOÑO?BLEA [phone] [facility] [address] [facility] 2021-03-27 2021-03-27 Telephone Prasanna Vargas [facility] 1.2.840.114 [id number] Univers 00:00:00 00:00:00 Cam [place] 350.1.13.10 i ty of [facility] [place] [id number] [address] 2021-03-23 2021-03-23 Outpatient R KAVYA [facility] [id number] Univers 13:30:00 13:30:00 CHILVANA ity o f [facility] 2021-03-23 2021-03-23 Outpatient R KAVYA [facility] [id number] Univers 13:30:00 13:30:00 CHILVANA ity o f [facility] 2021-03-22 2021-03-22 Outpatient R NEHEMIAH MEEKSNMEz [facility] [id number] Univers 09:20:00 09:20:00 ATANASOV, STRANML ity [facility] 2021-03-22 2021-03-22 Outpatient R NEHEMIAH MEEKSNMEz [facility] [id number] Univers 09:20:00 09:20:00 ATANASOV, STRANML ity [facility] 2021-03-20 2021-03-20 Outpatient [facility] [id number] Univers 00:00:00 00:00:00 WONDIFUL ity o f [facility] 2021-03-18 2021-03-18 Case [facility] 1.2.840.114 [id number] Univers 00:00:00 00:00:00 Management Wondiful A HEALTH 350.1.13.10 [facility] 4.2.7.2.686 [place] TOÑO?BLEA [phone] Il whit [place] 044 [facility] OFFICE [facility] 2021-03-16 2021-03-16 Psychological Operations Lab, Ang - Db [facility] 1.2.840.1 14 [id number] Univers 11:16:07 11:31:07 Visit Claudette Evans A HEALTH 350.1.13.1 0 ity of [place] 4.2.7.2.686 [place] TOÑO?BLEA [phone] Il whit [place] [address] MEDICAL OFFICE [facility] 2021-03-16 2021-03-16 Outpatient R CRISTINA [facility] [id number] Univers 11:30:00 11:30:00 WONDIFUL ity o [facility] 2021-03-16 2021-03-16 Outpatient [facility] [id number] Univers 11:00:00 11:14:45 WONDIFUL ity o [facility] 2021-03-16 2021-03-16 Office [facility] 1.2.840.114 [id number] Univers 10:00:58 11:14:45 Visit Wondiful A HEALTH 350.1.13.10 ity of [place] 4.2.7.2.686 [place] TOÑO?BLEA [phone] Il whit [address] OFFICE [facility] 2021-03-16 2021-03-16 Patient [facility] 1.2.840.114 [id number] Univers 00:00:00 00:00:00 Secure Msg Wondiful A HEALTH 350.1.13.10 ity of [place] 4.2.7.2.686 [place] TOÑO?BLEA [phone] Il whit [address] OFFICE [facility] 2021-03-02 2021-03-02 Outpatient R CRISTINA [facility] [id number] Univers 16:15:00 16:15:00 WONDIFUL ity o [facility] 2021-02-28 2021-02-28 Outpatient R MITCHELL [facility] [id number] Univers 18:30:00 18:30:00 ILEANA ankush of [facility] 2021-02-28 2021-02-28 Telephone [facility] 1.2.840.114 [id number] Univers 00:00:00 00:00:00 Wondiful A Health 350.1.13.10 ity of [place] 4.2.7.2.686 [place] as Toño?Blea [id number] [facility] 044 [facility] Office [facility] 2021-02-27 2021-02-27 Outpatient R [facility] [id number] Univers 09:00:00 09:00:00 AMELIA itchino of [facility] 2021-02-23 2021-02-23 Telephone [facility] 1.2.840.114 [id number] Univers 00:00:00 00:00:00 Wondiful A Health 350.1.13.10 ity of [place] 4.2.7.2.686 [place] Toño?Blea [phone] [facility] 044 [facility] Office [facility] 2021-02-10 2021-02-10 Emergency Kaycee Méndez [facility] 1.2.840.114 [id number] Univers 18:12:00 23:39:00 Sharlene [place] 350.1.13.10 i ty of [place] [id number] [facility] [address] 2021-02-09 2021-02-09 [facility] 1.2.390.019 [id number] Univers 13:40:00 23:59:00 Encounter Wondiful A Health 350.1.13.10 ity of [place] 4.2.7.2.686 [place] Toño?Blea [phone] [facility] [place] [address] Medical Office [facility] 2021-02-09 2021-02-09 Psychological Operations Lab, Ang - Db [facility] 1.2.840.1 14 [id number] Univers 13:49:05 14:04:05 Visit RiversideClaudette A Health 350.1.13.1 0 ity of [place] 4.2.7.2.686 [place] as Toño?Blea [phone] [facility] miki 353 [facility] Office [facility] 2021-02-09 2021-02-09 Office [facility] 1.2.840.114 [id number] Univers 12:23:13 13:47:12 Visit Wondiful A Health 350.1.13.10 ity of [place] 4.2.7.2.686 [place] as Toño?Blea [id number] [address] Medical Office [facility] 2021-02-09 2021-02-09 Outpatient [facility] [id number] Univers 13:00:00 13:00:00 WONDIFUL ity o f [facility] 2021-02-08 2021-02-08 Outpatient R NEHEMIAH MEEKSNMEz [facility] [id number] Univers 10:20:00 10:20:00 [facility]ANNA [facility] 2021-02-02 2021-02-02 Outpatient R [facility] [id number] Univers 10:30:00 10:30:00 SKYLAR [facility] 2021-02-02 2021-02-02 Telephone [facility] 1.2.840.[id number] [facility] 00:00:00 00:00:00 Wondiful A Health 350.1.13.10 ity of [place] 4.2.7.2.686 [place] as Toño?Blea [phone] [address] Medical Office [facility] 2021-02-01 2021-02-01 Outpatient R [facility] [id number] Univers 08:30:00 08:30:00 SKYLAR [facility] 2021-01-31 2021-01-31 [facility] 1.2.840.114 [id number] Univers 18:44:04 19:41:26 Care [facility] 350.1.13.10 i ty of [place] 4.2.7.2.686 [place] as Toño?Blea [phone] [facility] [address] Medical Office [facility] 2021-01-31 2021-01-31 Outpatient R [facility] [id number] Univers 19:00:00 19:00:00 FLACO ity o f [facility] 2021-01-31 2021-01-31 Telephone [facility] 1.2.840.114 [id number] Univers 00:00:00 00:00:00 Wondiful A Health 350.1.13.10 ity of [place] 4.2.7.2.686 [place] Toño?Blea [phone] [facility] 044 [facility] Office [facility] 2021-01-30 2021-01-30 Telephone [facility] 1.2.054.104 [id number] Univers 00:00:00 00:00:00 Sendil Cuate [place] 350.1.13.10 ity of [place] [phone] [facility] 059 [facility] 2021-01-26 2021-01-26 Outpatient [facility] [id number] Univers 14:00:00 14:00:00 SENDIL [facility] 2021-01-25 2021-01-25 Outpatient R [facility] [id number] Univers 15:00:00 15:00:00 ity [facility] 2021-01-20 2021-01-20 Telemedici [facility]eliNEW [facility] 1..840.114 [id number] Univers 16:51:22 17:12:41 ne Visit Skylar [facility] 350.1.13.10 ity of [place] 4.2.7.2.686 [place] as Toño?Blea [phone] [address] 2021-01-20 2021-01-20 Outpatient R [facility] [id number] Univers 16:30:00 16:30:00 SKYLAR ity [facility] 2021-01-19 2021-01-19 Outpatient R L[facility] [id number] Univers 10:15:00 10:15:00 KAYLEY ity [facility] 2021-01-14 2021-01-14 JORDAN Guzman 1.2.840.114 [id number] Univers 00:00:00 00:00:00 Management Kassandra ARCE 350.1.13.10 ity of [facility] 4.2.7.2.686 [place] as [phone] [facility] [address] 2021-01-12 2021-01-12 Emergency [facility] 1.2.336.254 [id number] Univers 16:10:00 19:45:00 Karin Farzana Lulu 350.1.13.10 i ty of [place].2.[place] [phone] [facility] [address] 2021-01-12 2021-01-12 Outpatient Farzana [facility]OTEST[facility] [id number] Univers 15:20:00 15:20:00 [facility]ANA [facility] 2021-01-12 2021-01-12 Urgent Thony Johnson [facility] 1.2.840.114 [id number] Univers 14:46:57 15:06:57 Noelle [facility] 350.1.13.10 ity of [place] 4.2.7.2.686 [place] as Toño?Blea [phone] [address] Office Building 2020-12-26 2020-12-26 Outpatient [facility] [id number] Univers 15:30:00 16:13:32 [facility]IL [facility] 2020-12-26 2020-12-26 Office [facility] 1.2.840.114 [id number] Univers 15:30:00 16:13:32 Visit Rad LAWSON 350.1.13.10 ity of [place] [id number] [address] 2020-12-26 2020-12-26 Office [facility] 1.2.840.114 [id number] Univers 15:00:32 16:13:32 Visit Rad Lawson 350.1.13.10 ity of [place].2.[place] [phone] Il dicok nal 9 [facility] 2020-12-26 2020-12-26 Outpatient [facility] [id number] Univers 15:30:00 15:30:00 SENDIL ity [facility] 2020-11-22 2020-11-22 Outpatient R APURVA [facility] [id number] Univers 11:00:00 11:00:00 CELINA lechuga [facility] 2020-11-10 2020-11-10 Urgent Alissa Collins [facility] 1.2.840.114 [id number] 18:42:46 19:53:43 [facility] 350.1.13.10 [place] 4.2.7.2.686 Profadore [id number] nal 0[address] 2020-11-10 2020-11-10 Outpatient R [facility] [id number] Univers 19:00:00 19:00:00 itchino [facility] 2020-10-31 2020-10-31 Emergency Kaycee Méndez [facility] 1.2.840.114 [id number] 18:52:00 22:15:00 Sharlene Lawson 350.1.13.10 [place] 4.2.7.2.686 [place] [id number] [id number] 2020-10-31 2020-10-31 Outpatient R NATASHA [facility] [id number] Univers 19:00:00 19:00:00 BEBAJACOB lechuga o f [facility] 2020-10-31 2020-10-31 Orders Doctor JORDAN 1.2.840.114 [id number] 00:00:00 00:00:00 Only Unassigned, YAZMIN 350.1.13.10 [place] [facility] 4.2.7.2.686 [id number] 2020-10-20 2020-10-20 Emergency Kaycee Méndez [facility] 1.2.840.114 [id number] 14:02:00 17:13:00 Sharlene Lawson 350.1.13.10 [place] 4.2.7.2.686 [place] [id number] 084 2020-10-14 2020-10-14 [facility] Prasanna Vargas [facility] 1.2.840.114 [id number] 10:00:00 23:59:00 Remington Lawson 350.1.13.10 [place] 4.2.7.2.686 [place] [id number] 806 2020-10-14 2020-10-14 Outpatient Farzana MIXON [facility] [id number] Univers 13:30:00 13:30:00 CELINA [facility] 2020-10-09 2020-10-09 Emergency [facility] 1.2.656.878 [id number] 12:00:00 15:57:00 Anna Lawson 350.1.13.10 [place] 4.2.7.2.686 [place] [id number] 084 2020-10-06 2020-10-06 Office VargasPrasanna [facility] 1.2.652.388 [id number] 08:53:00 09:46:44 Visit Jm [place] 350.1.13.10 [place] 4.2.7.2.686 [facility] [phone] nal [address] Building 2020-10-06 2020-10-06 Outpatient PRASANNA LOOMIS [facility] [id number] Univers 09:30:00 09:30:00 [facility] 2020-10-04 2020-10-04 Outpatient Farzana MIXON [facility] [id number] Univers 14:00:00 14:00:00 [facility] 2020-09-30 2020-09-30 Outpatient Farzana MIXON [facility] [id number] Univers 10:30:00 10:30:00 [facility] 2020-09-29 2020-09-29 Outpatient Farzana SHAY [facility] [id number] Univers 13:45:00 13:45:00 PREET [facility] 2020-09-06 2020-09-06 Outpatient Farzana VARGAS PRASANNA [facility] [id number] Univers 15:30:00 15:30:00 [facility] 2020-09-02 2020-09-02 Outpatient DARRION QUIROZ [facility] [id number] Univers 15:40:00 15:40:00 DARRION WYATT [facility] 2020-08-31 2020-08-31 Outpatient Farzana SERRA [facility] [id number] Univers 10:30:00 10:30:00 SENDZOHRA ity [facility] 2020-08-18 2020-08-18 Outpatient R PRASANNA VARGAS [facility] [id number] Univers 09:30:00 09:30:00 ity [facility] 2020-08-11 2020-08-11 Outpatient R PRASANNA VARGAS [facility] [id number] Univers 13:30:00 13:30:00 ity [facility] 2020-08-04 2020-08-04 Outpatient R JUSTINE [facility] [id number] Univers 14:00:00 14:00:00 SCOTT ity [facility] 2020-07-28 2020-07-28 Outpatient R PONCE [facility] [id number] Univers 10:30:00 10:30:00 [facility] 2020-06-30 2020-06-30 Outpatient R CRISTINA [facility] [id number] Univers 16:15:00 16:15:00 WONDIFUL ity o f [facility] 2020-06-17 2020-06-17 Outpatient R DARRION WYATT [facility] [id number] Univers 15:00:00 15:00:00 DARRION [facility]ATT [facility] 2020-06-16 2020-06-16 Outpatient R PONCE [facility] [id number] Univers 15:30:00 15:30:00 [facility]IL [facility] 2020-06-09 2020-06-09 Outpatient R NI DISLA [facility] [id number] Univers 12:30:00 12:30:00 ity [facility] 2020-06-08 2020-06-08 Outpatient R NI DISLA [facility] [id number] Univers 08:00:00 08:00:00 ity [facility] 2020-06-02 2020-06-02 Outpatient R PONCE [facility] [id number] Univers 09:00:00 09:00:00 [facility]IL [facility] 2020-05-28 2020-05-28 Outpatient R NATASHA [facility] [id number] Univers 10:00:00 10:00:00 BEBA ity o f [facility] 2020-05-24 2020-05-24 Outpatient R NI DISLA [facility] [id number] Univers 10:00:00 10:00:00 ity [facility] 2020-05-19 2020-05-19 Outpatient R CORETTALAURENOSITO [facility] [id number] Univers 16:30:00 16:30:00 [facility] 2020-05-17 2020-05-17 Outpatient R DARRION WYATT [facility] [id number] Univers 13:00:00 13:00:00 DARRION WYATT [facility] 2020-05-16 2020-05-16 Outpatient R CRISTINA [facility] [id number] Univers 16:00:00 16:00:00 WONDIFUL ity o f [facility] 2020-05-08 2020-05-08 Emergency X VIRGIE, [facility] ERT [id number] Univers 10:24:00 13:03:00 OLAMIDE [facility] 2020-05-03 2020-05-03 Outpatient R CRISTINA, [facility] [id number] Univers 15:00:00 15:00:00 WONDIFUL ity o f [facility] 2020-04-30 2020-05-01 Outpatient X KAVYA [facility] JOSÉ MANUEL [id number] Univers 11:14:00 15:50:00 RODRIGUEZ [facility] 2020-04-30 2020-04-30 Outpatient R JASPAL [facility] [id number] Univers 10:20:00 10:20:00 ROSALES [facility] 2020-04-30 2020-04-30 Outpatient R JASPAL [facility] [id number] Univers 10:15:00 10:15:00 ROSALES [facility] 2020-04-28 2020-04-28 Outpatient R OSITO HITCHCOCK [facility] [id number] Univers 14:00:00 14:00:00 [facility] 2020-04-25 2020-04-25 Outpatient R CRISTINA [facility] [id number] Univers 16:15:00 16:15:00 WONDIFUL ity o f [facility] 2020-04-18 2020-04-18 Outpatient R CORETTAOSITO [facility] [id number] Univers 10:00:00 10:00:00 [facility] 2020-04-15 2020-04-15 Outpatient R PONCE [facility] [id number] Univers 10:30:00 10:30:00 SENDIL [facility] 2020-04-12 2020-04-13 Outpatient X MARICRUZ DELUNA [facility] [id number] Univers 13:38:00 16:25:00 [facility] 2020-03-17 2020-03-17 Outpatient R DEYVI [facility] [id number] Univers 16:15:00 16:15:00 [facility] 2020-03-04 2020-03-04 Refill C[facility]ta [facility] [id number] 00:00:00 00:00:00 MULTISPEC [id number] IALTY [id number] [place] [id number] [facility] 2020-02-25 2020-02-25 Outpatient R CORETTALAURENOSITO [facility] [id number] Univers 16:00:00 16:00:00 [facility] 2020 2020 Outpatient R DEYVI [facility] [id number] [facility] 14:00:00 14:00:00 [facility]-08 2020-02-08 Outpatient R PRASANNA VARGAS [facility] [id number] Univers 10:30:00 10:30:00 [facility] 2020-02-04 2020-02-04 Outpatient R CORETTAOSITO [facility] [id number] [facility] 13:30:00 13:30:00 [facility] 2020-01-23 2020-01-23 Outpatient R [facility] [id number] Univers 10:15:00 10:15:00 [facility] 2020-01-21 2020-01-21 Outpatient R CORETTAOSITO [facility] [id number] Univers 13:00:00 13:00:00 [facility] 2020-01-14 2020-01-14 Outpatient R JACOB HITCHCOCKR [facility] [id number] [facility] 16:00:00 16:00:00 [facility] 2020-01-05 2020-01-05 Outpatient R ALICIA PRASANNA [facility] [id number] Univers 13:45:00 13:45:00 [facility] 2019-12-03 2019-12-03 Outpatient R AKINSIPE, [facility] [id number] Univers 10:30:00 10:30:00 CRICKET ity o f [facility] 2019-11-27 2019-11-27 Outpatient R VANAPHAN, [facility] [id number] Univers 11:00:00 11:00:00 [facility] 2019-11-25 2019-11-25 Outpatient R VANAPHAN, [facility] [id number] Univers 08:00:00 08:00:00 [facility] 2019-11-18 2019-11-18 Outpatient R VANAPHAN, [facility] [id number] Univers 10:00:00 10:00:00 [facility] 2019-09-02 2019-09-02 Outpatient R AKINSIPE, [facility] [id number] Univers 11:00:00 11:00:00 CRICKET ity o f [facility] 2019-08-14 2019-08-14 Outpatient R VANAPHAN, [facility] [id number] Univers 10:15:00 10:15:00 [facility] 2019-08-13 2019-08-13 Outpatient R AKINSIPE, [facility] [id number] Univers 11:00:00 11:00:00 CRICKET ity o f [facility] 2019-08-12 2019-08-12 Outpatient R [facility] [id number] Univers 09:00:00 09:00:00 [facility] 2019-07-20 2019-07-20 Outpatient P ALICIAORLANDOEN [facility] [id number] Univers 16:06:00 16:06:00 [facility] 2019-07-20 2019-07-20 Outpatient R AKINSIPE, [facility] [id number] Univers 08:15:00 08:15:00 CRICKET ity o f [facility] 2019-07-13 2019-07-13 Outpatient R BRANDON [facility] [id number] Univers 08:00:00 08:00:00 CRICKET davis [facility] 2019-07-12 2019-07-12 Outpatient PRASANNA HERRERA [facility] [id number] Univers 13:39:00 13:39:00 [facility] 2019-07-06 2019-07-06 Outpatient R BRANDON [facility] [id number] Univers 13:00:00 13:00:00 CRICKET davis [facility] 2019-06-13 2019-06-13 Emergency X MARGARITA [facility] E[facility] [id number] Univers 10:40:46 12:35:00 SARAHI [facility] 2019-05-13 2019-05-14 Outpatient P PRASANNA VARGAS [facility] [id number] Univers 23:07:00 09:15:00 [facility] Results Test Description Test Time Test Comments Results Result Comments Source COMP. METABOLIC PANEL ([id number]) 2022-05-05 19:35:37 Test Item Value Reference Range Interpretation Comme nts NA (test code = 7908243961) 139 mmol/L 135-145 K (test code = 1127987802) 4.4 mmol/L 3.5-5.0 CL (test code = 7130477922) 104 mmol/L 98-108 CO2 TOTAL (test code = 4427809405) 22 mmol/L 23-31 L AGAP (test code = 1751412489) 2-16 BUN (test code = 2923228778) 11 mg/dL 7-23 GLUCOSE (test code = 5293518478) 95 mg/dL 70-110 CREATININE (test code = 0.71 mg/dL 0.50-1.04 8978627744) TOTAL BILI (test code = 0.4 mg/dL 0.1-1.5 7701455281) CALCIUM (test code = 6880456175) 9.1 mg/dL 8.6-10.6 T PROTEIN (test code = 2116559683) 7.9 g/dL 6.3-8.2 ALBUMIN (test code = 7417491207) 4.7 g/dL 3.5-5.0 ALK PHOS (test code = 0021357320) 114 U/L 34-122 ALTv (test code = 1742-6) 21 U/L 5-35 AST(SGOT) (test code = 4529088462) 21 U/L 13-40 eGFR (test code = 1561164564) mL/min/1.73m2 WESLEY (test code = WESLEY) Association of Glomerular Filtration Rate (GFR) and Staging of Kidney Disease* + +-------- + ------+| GFR (mL/min/1.73 m2) ?| With Kidney Damage ?| ?Without Kidney Damage+ +-- + +| ?>90 ?| ?Stage one ?| ? Normal ?+ +------- + -------+| ?60-89 ?| ?Stage two ?| ? Decreased GFR ? + +-------- + ------+| ?30-59 ?| ?Stage three ?| ? Stage three ? + +-------- + ------+| ?15-29 ?| ?Stage four ? | ? Stage four ?+ +------- + -------+| ?<15 (or dialysis) ? ?| ?Stage five ? | ? Stage five ?+ +------- + -------+ *Each stage assumes the associated GFR [...] or abnormalities in imaging tests). Lab Interpretation (test code = Abnormal 84808-8) [facility] WITH [id number] 19:25:37 Test Item Value Reference Range Interpretation Comments WBC (test code = See_Comment [Automated 2790-2) message] The sy stem which generated this [...] as normal/abnormal . HGB (test code = 13.1 g/dL 11.6-15.0 718-7) HCT (test code = 39.8 % 35.7-45.2 4544-3) MCV (test code = 88.4 fL 80.6-95.5 787-2) MCH (test code = 29.1 pg 25.9-32.8 785-6) MCHC (test code = 32.9 g/dL 31.6-35.1 786-4) RDW-SD (test code = 41.7 fL 39.0-49.9 92025-0) RDW-CV (test code = 12.7 % 12.0-15.5 788-0) PLT (test code = See_Comment H [Automated 777-3) message] The sy stem which generated this result transmitted reference range : 166 - 358 10*3/ ?L. The reference r david was not used to interpret this result as normal/abnormal . MPV (test code = 8.8 fL 9.5-12.9 L 25694-9) NRBC/100 WBC (test See_Comment [Automat ed code = 4416775884) message] The system which generated this result transmitted reference range : 0.0 - 10.0 /100 WBCs. The refer ence range was not u sed to interpret th is result as normal/abnormal . NRBC x10^3 (test code See_Comment [Auto mated = 0631800269) message] The s ystem which generated this result transmitted reference range : 10*3/?L. The reference range was not used to interpret this result as normal/abnormal . GRAN MAT (NEUT) % 56.1 % (test code = 770-8) IMM GRAN % (test code 0.40 % = 3216623952) LYMPH % (test code = 29.9 % 736-9) MONO % (test code = 5.4 % 5905-5) EOS % (test code = 7.8 % 713-8) BASO % (test code = 0.4 % 706-2) GRAN MAT x10^3(ANC) 3.75 10*3/uL 1.88-7.09 (test code = 8591637959) IMM GRAN x10^3 (test 0.03 10*3/uL 0.00-0.06 code = 9359020190) LYMPH x10^3 (test code 2.00 10*3/uL 1.32-3.29 = 731-0) MONO x10^3 (test code 0.36 10*3/uL 0.33-0.92 = 742-7) EOS x10^3 (test code = 0.52 10*3/uL 0.03-0.39 H 711-2) BASO x10^3 (test code 0.03 10*3/uL 0.01-0.07 = 704-7) Lab Interpretation Abnormal (test code = 75668-3) [id number]00 Test Item Value Reference Range Interpretation Comments POCT PREG (test code = 1605) negative On board controls acceptable with present C Line (test code = 3574) POCT PREG LOT # (test code = 3575) [id number] POCT PREG TEST DATE (test 08-11-2023 code = 3576) Lab Interpretation (test code = Normal 98737-0) [facility] WITH [id number] 15:21:11 Test Item Value Reference Range Interpretation Comments WBC (test code = See_Comment [Automated 8415-2) message] The sy stem which generated this result transmitted reference range : 4.30 - 11.10 10*3/?L. The reference range was not used to interpret this result as normal/abnormal . RBC (test code = See_Comment [Automated 949-8) message] The sy stem which generated this result transmitted reference range : 3.93 - 5.25 10*6/?L. The reference range was not used to interpret this result as normal/abnormal . HGB (test code = 13.4 g/dL 11.6-15.0 718-7) HCT (test code = 40.6 % 35.7-45.2 4544-3) MCV (test code = 89.2 fL 80.6-95.5 787-2) MCH (test code = 29.5 pg 25.9-32.8 785-6) MCHC (test code = 33.0 g/dL 31.6-35.1 786-4) RDW-SD (test code = 42.6 fL 39.0-49.9 32697-5) RDW-CV (test code = 12.9 % 12.0-15.5 788-0) PLT (test code = See_Comment H [Automated 777-3) message] The sy stem which generated this result transmitted reference range : 166 - 358 10*3/ ?L. The reference r david was not used to interpret this result as normal/abnormal . MPV (test code = 9.1 fL 9.5-12.9 L 46527-4) NRBC/100 WBC (test See_Comment [Automat ed code = 5269968298) message] The system which generated this result transmitted reference range : 0.0 - 10.0 /100 WBCs. The refer ence range was not u sed to interpret th is result as normal/abnormal . NRBC x10^3 (test code See_Comment [Auto mated = 3028739923) message] The s ystem which generated this result transmitted reference range : 10*3/?L. The reference range was not used to interpret this result as normal/abnormal . GRAN MAT (NEUT) % 56.8 % (test code = 770-8) IMM GRAN % (test code 0.30 % = 0068852194) LYMPH % (test code = 29.5 % 736-9) MONO % (test code = 4.3 % 5905-5) EOS % (test code = 8.3 % 713-8) BASO % (test code = 0.8 % 706-2) GRAN MAT x10^3(ANC) 3.57 10*3/uL 1.88-7.09 (test code = 2758657258) IMM GRAN x10^3 (test 0.00-0.06 code = 2551355323) LYMPH x10^3 (test code 1.85 10*3/uL 1.32-3.29 = 731-0) MONO x10^3 (test code 0.27 10*3/uL 0.33-0.92 L = 742-7) EOS x10^3 (test code = 0.52 10*3/uL 0.03-0.39 H 711-2) BASO x10^3 (test code 0.05 10*3/uL 0.01-0.07 = 704-7) Lab Interpretation Abnormal (test code = 73816-4) [facility]. METABOLIC PANEL ([id number])2022-04-26 15:12:13 Test Item Value Reference Range Interpretation Comments NA (test code = 141 mmol/L 135-145 3445282816) K (test code = 3.4 mmol/L 3.5-5.0 L 2971485977) CL (test code = 104 mmol/L 98-108 4122338955) CO2 TOTAL (test code = 23 mmol/L 23-31 8335978886) AGAP (test code = 2-16 8731999434) BUN (test code = 9 mg/dL 7-23 6421268527) GLUCOSE (test code = 101 mg/dL 70-110 8898963338) CREATININE (test code = 0.82 mg/dL 0.50-1.04 0184657679) TOTAL BILI (test code = 0.7 mg/dL 0.1-1.3 2365874776) CALCIUM (test code = 9.3 mg/dL 8.6-10.6 3661082538) T PROTEIN (test code = 8.1 g/dL 6.3-8.2 0794775385) ALBUMIN (test code = 4.7 g/dL 3.5-5.0 0732019357) ALK PHOS (test code = 108 U/L 34-122 5298916295) ALTv (test code = 24 U/L 5-35 1742-6) AST(SGOT) (test code = 49 U/L 13-40 H 0857171734) eGFR (test code = mL/min/1.73m2 3935730952) WESLEY (test code = WESLEY) Association of [...] tests). Lab Interpretation Abnormal (test code = 93624-9) [facility] [id number] 14:45:00 Test Item Value Reference Range Interpretation Comments POCT PREG (test code = 1605) negative On board controls acceptable with present C Line (test code = 3574) POCT PREG LOT # (test code = 3575) [id number] POCT PREG TEST DATE (test 08/11/2023 code = 3576) Lab Interpretation (test code = Normal 71182-7) [facility] [id number] 01:22:00 Test Item Value Reference Range Interpretation Comments POCT PREG (test code = 1605) Negative On board controls acceptable with Present C Line (test code = 3574) POCT PREG LOT # (test code = 3575) [id number] POCT PREG TEST DATE (test 08-11-2023 code = 3576) Lab Interpretation (test code = Normal 65544-1) [facility] METABOLIC PANEL (NA, K, CL, CO2, GLUCOSE, BUN, CREATININE, CA)2022-04-07 23:01:10 Test Item Value Reference Range Interpretation Comments NA (test code = 138 mmol/L 135-145 0005818548) K (test code = 4.3 mmol/L 3.5-5.0 0900685922) CL (test code = 107 mmol/L 98-108 3696249627) CO2 TOTAL (test code = 20 mmol/L 23-31 L 9051528488) AGAP (test code = 2-16 7444216876) BUN (test code = 9 mg/dL 7-23 1187833121) GLUCOSE (test code = 204 mg/dL 70-110 H 9153184627) CREATININE (test code = 0.74 mg/dL 0.50-1.04 5343931028) CALCIUM (test code = 9.1 mg/dL 8.6-10.6 5430915823) eGFR (test code = mL/min/1.73m2 8804054726) WESLEY (test code = WESLEY) Association of [...] tests). Lab Interpretation Abnormal (test code = 63846-6) [facility] WITH [id number] 22:57:34 Test Item Value Reference Range Interpretation Comments [...] as normal/abnormal . HGB (test code = 12.2 g/dL 11.6-15.0 718-7) HCT (test code = 36.4 % 35.7-45.2 4544-3) MCV (test code = 87.7 fL 80.6-95.5 787-2) MCH (test code = 29.4 pg 25.9-32.8 785-6) MCHC (test code = 33.5 g/dL 31.6-35.1 786-4) RDW-SD (test code = 42.9 fL 39.0-49.9 79658-9) RDW-CV (test code = 13.4 % 12.0-15.5 788-0) PLT (test code = See_Comment H [Automated 777-3) message] The sy stem which generated this result transmitted reference range : 166 - 358 10*3/ ?L. The reference r advid was not used to interpret this result as normal/abnormal . MPV (test code = 8.9 fL 9.5-12.9 L 95680-5) NRBC/100 WBC (test See_Comment [Automat ed code = 0849937419) message] The system which generated this result transmitted reference range : 0.0 - 10.0 /100 WBCs. The refer ence range was not u sed to interpret th is result as normal/abnormal . NRBC x10^3 (test code See_Comment [Auto mated = 5695958669) message] The s ystem which generated this result transmitted reference range : 10*3/?L. The reference range was not used to interpret this result as normal/abnormal . GRAN MAT (NEUT) % 88.7 % (test code = 770-8) IMM GRAN % (test code 0.70 % = 3526312247) LYMPH % (test code = 9.4 % 736-9) MONO % (test code = 0.9 % 5905-5) EOS % (test code = 0.1 % 713-8) BASO % (test code = 0.2 % 706-2) GRAN MAT x10^3(ANC) 7.81 10*3/uL 1.88-7.09 H (test code = 2133104669) IMM GRAN x10^3 (test 0.06 10*3/uL 0.00-0.06 code = 2161601074) LYMPH x10^3 (test code 0.83 10*3/uL 1.32-3.29 L = 731-0) MONO x10^3 (test code 0.08 10*3/uL 0.33-0.92 L = 742-7) EOS x10^3 (test code = 0.03-0.39 L 711-2) BASO x10^3 (test code 0.01-0.07 = 704-7) Lab Interpretation Abnormal (test code = 84101-9) [facility] [id number] 14:07:00 Test Item Value Reference Range Interpretation Comments POCT PREG (test code = 1605) negative On board controls acceptable with present C Line (test code = 3574) POCT PREG LOT # (test code = 3575) [id number] POCT PREG TEST DATE (test 08/11/2023 code = 3576) Lab Interpretation (test code = Normal 11422-5) [facility] [id number] 13:52:00 Test Item Value Reference Range Interpretation Comments POCT PREG (test code = 1605) negative On board controls acceptable with C present Line (test code = 3574) Lab Interpretation (test code = Normal 18225-7) [facility] [id number] 14:59:00 Test Item Value Reference Range Interpretation Comments POCT PREG (test code = 1605) negative On board controls acceptable with yes C Line (test code = 3574) POCT PREG LOT # (test code = 3575) [id number] POCT PREG TEST DATE (test 07/11/2023 code = 3576) Lab Interpretation (test code = Normal 72884-2) [facility]. METABOLIC PANEL ([id number])2022 17:51:43 Test Item Value Reference Range Interpretation Comments NA (test code = 139 mmol/L 135-145 6961193634) K (test code = 4.1 mmol/L 3.5-5 0732601049) CL (test code = 104 mmol/L 98-108 7818081476) CO2 TOTAL (test code = 22 mmol/L 23-31 L 2560177706) AGAP (test code = 2-16 1019029076) BUN (test code = 7 mg/dL 7-23 1289924644) GLUCOSE (test code = 114 mg/dL 70-110 H 0847884588) CREATININE (test code = 0.69 mg/dL 0.5-1.04 9244951068) TOTAL BILI (test code = 0.4 mg/dL 0.1-1.0 1300663096) CALCIUM (test code = 9.7 mg/dL 8.6-10.6 5641894071) T PROTEIN (test code = 7.2 g/dL 6.3-8.2 9291201065) ALBUMIN (test code = 4.6 g/dL 3.5-5 5259384920) ALK PHOS (test code = 65 U/L 34-122 4920888785) ALTv (test code = 15 U/L 5-35 1742-6) AST(SGOT) (test code = 19 U/L 13-40 7401311088) eGFR (test code = mL/min/1.73m2 8872231960) WESELY (test code = WESLEY) Association of Glomerular [...] tests). Lab Interpretation Abnormal (test code = 50831-3) [facility] WITH [id number] 17:40:24 Test Item Value Reference Range Interpretation Comments WBC (test code = See_Comment [Automated 1447-2) message] The sy stem which generated this result transmitted reference range : 4.30 - 11.10 10*3/?L. The reference range was not used to interpret this result as normal/abnormal . RBC (test code = See_Comment [Automated 982-8) message] The sy stem which generated this [...] RDW-SD (test code = 43.1 fL 39-49.9 09025-8) RDW-CV (test code = 13.2 % 12-15.5 788-0) PLT (test code = See_Comment [Automated 777-3) message] The sy stem which generated this result transmitted reference range : 166 - 358 10*3/ ?L. The reference r david was not used to interpret this result as normal/abnormal . MPV (test code = 9.5 fL 9.5-12.9 44797-9) NRBC/100 WBC (test See_Comment [Automat ed code = 0745935986) message] The system which generated this result transmitted reference range : 0.0 - 10.0 /100 WBCs. The refer ence range was not u sed to interpret th is result as normal/abnormal . NRBC x10^3 (test code See_Comment [Auto mated = 9330134499) message] The s ystem which generated this result transmitted reference range : 10*3/?L. The reference range was not used to interpret this result as normal/abnormal . GRAN MAT (NEUT) % 57.8 % (test code = 770-8) IMM GRAN % (test code 0.20 % = 8773634694) LYMPH % (test code = 30.8 % 736-9) MONO % (test code = 5.1 % 5905-5) EOS % (test code = 5.6 % 713-8) BASO % (test code = 0.5 % 706-2) GRAN MAT x10^3(ANC) 3.61 10*3/uL 1.88-7.09 (test code = 5897243004) IMM GRAN x10^3 (test 0-0.06 code = 5561919216) LYMPH x10^3 (test code 1.92 10*3/uL 1.32-3.29 = 731-0) MONO x10^3 (test code 0.32 10*3/uL 0.33-0.92 L = 742-7) EOS x10^3 (test code = 0.35 10*3/uL 0.03-0.39 711-2) BASO x10^3 (test code 0.03 10*3/uL 0.01-0.07 = 704-7) Lab Interpretation Abnormal (test code = 15749-4) [facility] [id number] 17:27:00 Test Item Value Reference Range Interpretation Comments POCT PREG (test code = 1605) negative On board controls acceptable with present C Line (test code = 3574) POCT PREG LOT # (test code = 3575) [id number] POCT PREG TEST DATE (test code = 3576) Lab Interpretation (test code = Normal 24057-6) [facility] 12:45:21 Test Item Value Reference Range Interpretation Comments LIPASE (test code = 7670826331) 41 U/L 0-220 Lab Interpretation (test code = Normal 25482-8) [facility] [id number] 10:57:00 Test Item Value Reference Range Interpretation Comments POCT PREG (test code = 1605) Negative On board controls acceptable with Present C Line (test code = 3574) POCT PREG LOT # (test code = 3575) [id number] POCT PREG TEST DATE (test 03/12/2023 code = 3576) Lab Interpretation (test code = Normal 74038-1) [facility] (NA, K, CL, CO2, GLUCOSE, BUN, CREATININE, CA)2022-01-18 10:56:51 Test Item Value Reference Range Interpretation Comments NA (test code = 137 mmol/L 135-145 9772106012) K (test code = 4.6 mmol/L 3.5-5 Slight 8158707921) hemolysis CL (test code = 108 mmol/L 98-108 8325481635) CO2 TOTAL (test code 22 mmol/L 23-31 L = 6020147248) AGAP (test code = 2-16 6800134778) BUN (test code = 11 mg/dL 7-23 Slight 8065418297) hemolysis GLUCOSE (test code = 83 mg/dL 70-110 6235941667) CREATININE (test code 0.68 mg/dL 0.5-1.04 = 3765709823) CALCIUM (test code = 8.8 mg/dL 8.6-10.6 4800063244) eGFR (test code = mL/min/1.73m2 3285138916) WESLEY (test code = WESLEY) Association of [...] tests). Lab Interpretation Abnormal (test code = 93583-5) [facility]28683[facility] (ALB,T.PRO,BILI T,BU/BC,ALT,AST,ALK PHOS)2022-01-18 10:56:51 Test Item Value Reference Range Interpretation Comments TOTAL BILI (test code = 6374520763) 0.6 mg/dL 0.1-1.1 BILI UNCON (test code = 2486559243) 0.1 mg/dL 0.1-1.1 BILI CONJ (test code = 9203653979) 0.0 mg/dL 0-0.3 T PROTEIN (test code = 8526601556) 8.6 g/dL 6.3-8.2 H ALBUMIN (test code = 5318218549) 5.1 g/dL 3.5-5 H ALK PHOS (test code = 6205113236) 79 U/L 34-122 ALTv (test code = 1742-6) 117 U/L 5-35 H AST(SGOT) (test code = 8714707933) 163 U/L 13-40 H Lab Interpretation (test code = Abnormal 46672-7) [facility], [id number] 10:54:25 Test Item Value Reference Range Interpretation Comments PREG SERUM (test code Negative = 5357502489) WESLEY (test code = WESLEY) Less than 10 IU/L. ?If low titer or ectopic is suspected, resubmit specimen in 48-72 hours. [facility] WITH [id number] 10:40:49 Test Item Value Reference Range Interpretation Comments WBC (test code = See_Comment [Automated 3290-2) message] The sy stem which generated this [...] RDW-SD (test code = 45.3 fL 39-49.9 35058-6) RDW-CV (test code = 14.5 % 12-15.5 788-0) PLT (test code = See_Comment [Automated 777-3) message] The sy stem which generated this result transmitted reference range : 166 - 358 10*3/ ?L. The reference r david was not used to interpret this result as normal/abnormal . MPV (test code = 9.5 fL 9.5-12.9 72461-4) NRBC/100 WBC (test See_Comment [Automat ed code = 2977504124) message] The system which generated this result transmitted reference range : 0.0 - 10.0 /100 WBCs. The refer ence range was not u sed to interpret th is result as normal/abnormal . NRBC x10^3 (test code See_Comment [Auto mated = 4754738749) message] The s ystem which generated this result transmitted reference range : 10*3/?L. The reference range was not used to interpret this result as normal/abnormal . GRAN MAT (NEUT) % 47.6 % (test code = 770-8) IMM GRAN % (test code 0.60 % = 4490472141) LYMPH % (test code = 39.9 % 736-9) MONO % (test code = 5.9 % 5905-5) EOS % (test code = 5.3 % 713-8) BASO % (test code = 0.7 % 706-2) GRAN MAT x10^3(ANC) 4.45 10*3/uL 1.88-7.09 (test code = 8064448761) IMM GRAN x10^3 (test 0.06 10*3/uL 0-0.06 code = 6103550060) LYMPH x10^3 (test code 3.74 10*3/uL 1.32-3.29 H = 731-0) MONO x10^3 (test code 0.55 10*3/uL 0.33-0.92 = 742-7) EOS x10^3 (test code = 0.50 10*3/uL 0.03-0.39 H 711-2) BASO x10^3 (test code 0.07 10*3/uL 0.01-0.07 = 704-7) Lab Interpretation Abnormal (test code = 00262-4) [facility] [id number] 18:31:00 Test Item Value Reference Range Interpretation Comments POCT PREG (test code = 1605) Negative On board controls acceptable with C Yes Line (test code = 3574) POCT PREG LOT # (test code = 3575) POCT PREG TEST DATE (test code = 3576) [facility] URINALYSIS W/O SPECIFIC [id number] 18:31:00 Test Item Value Reference Range Interpretation [...] code = 3257) Trace Negative - Negative [facility]"
[2022-05-10] MEDS ORDERED: ACETAMINOPHEN 325 MG TABLET ONE (10:26)
[2022-05-10] MEDS ORDERED: ONDANSETRON 4 MG (ODT) TAB ONE (10:26)
[2022-05-10] MEDS ORDERED: MECLIZINE HCL 12.5 MG TAB ONE (10:29)
[2022-05-10 10:35] LABS: Urine Blood Negative (Negative); Urine Glucose Negative (Negative); Urine Protein Negative (Negative)
[2022-05-10 11:38] LABS: SARS-COV-2 RT PCR POSITIVE (NEGATIVE)
--- NOTE | 2022-05-10 13:00 | EDPHYS ---
Physician Documentation [facility] Name: Natanael Dyson Age: 27 yrs Sex: Female : 1995 Arrival Date: 05/10/2022 Time: 09: Bed IW1 Private MD: ED Physician Anusha Angel HPI: 05/10 10:20 This 27 yrs old Female presents to ER via Unassigned with complaints of Headache, cp Nausea, Dizziness. 10:20 The patient complains of pain to the top of head and forehead. The patient describes cp the headache as aching, constant. Onset: The symptoms/episode began/occurred 3 day(s) ago. Headache History: Other patient reports history of migraine headaches. 10:20 The patient or guardian reports cough, that is intermittent. Associated signs and cp symptoms: Pertinent positives: dizziness, nausea, Pertinent negatives: altered mental status, fever, neck stiffness, paresthesias, vision changes, vomiting. Historical: - Allergies: 10:21 Compazine; ss 10:21 Reglan; ss - PMHx: 10:21 Asthma; Kidney stone; Migraine; UTI; ss - PSHx: 10:21 section; tubal ligation; ss ROS: 10:30 Constitutional: Negative for fever, poor PO intake. cp 10:30 Eyes: Negative for injury, pain, redness, and discharge. cp 10:30 ENT: Negative for drainage from ear(s), ear pain, difficulty swallowing, difficulty handling secretions. 10:30 Cardiovascular: Negative for chest pain, edema, palpitations. 10:30 Respiratory: Positive for cough, Negative for shortness of breath, wheezing. 10:30 Abdomen/GI: Positive for nausea and vomiting, Negative for abdominal pain, diarrhea, constipation. 10:30 : Negative for urinary symptoms. 10:30 Skin: Negative for rash. 10:30 Neuro: Positive for dizziness, headache, Negative for altered mental status, numbness, syncope, weakness. 10:30 All other systems are negative. Exam: 10:33 Constitutional: The patient appears in no acute distress, alert, awake, non-toxic, well cp developed, well nourished. 10:33 Head/Face: Normocephalic, atraumatic. cp 10:33 Eyes: Periorbital structures: appear normal, Pupils: equal, round, and reactive to light and accomodation, Extraocular movements: intact throughout, Conjunctiva: normal, no exudate, no injection, Sclera: no appreciated abnormality, Lids and lashes: appear normal, bilaterally. 10:33 ENT: External ear(s): are unremarkable, Ear canal(s): are normal, clear, TM's: bulging, is not appreciated, bilaterally, dullness, bilaterally, erythema, is not appreciated, bilaterally, Nose: is normal, Mouth: Lips: moist, Oral mucosa: moist, Posterior pharynx: Airway: no evidence of obstruction, patent, Tonsils: no enlargement, no exudate, swelling, is not appreciated, erythema, that is mild, exudate, is not appreciated. 10:33 Neck: ROM/movement: is normal, is supple, without pain, no range of motions limitations, no meningismus, Lymph nodes: no appreciated lymphadenopathy. 10:33 Chest/axilla: Inspection: normal. 10:33 Cardiovascular: Rate: normal, Rhythm: regular. 10:33 Respiratory: the patient does not display signs of respiratory distress, Respirations: normal, no use of accessory muscles, no retractions, labored breathing, is not present, Breath sounds: are clear throughout, no decreased breath sounds, no stridor, no wheezing. 10:33 Abdomen/GI: Exam negative for discomfort, distension, guarding, Inspection: abdomen appears normal. 10:33 Skin: no rash present. 10:33 Neuro: Orientation: to person, place \T\ time. Mentation: is normal, Motor: moves all fours, strength is normal, Sensation: no obvious gross deficits, Gait: is steady. Vital Signs: 10:19 BP 124 / 92; Pulse 93; Resp 16; Temp 98.0(O); Pulse Ox 100% on R/A; Weight 56.7 kg; ss Height 5 ft. 1 in. (154.94 cm); Pain 8/10; 10:19 Body Mass Index 23.62 (56.70 kg, 154.94 cm) ss MDM: 10:31 Patient medically screened. cp 12:00 Data reviewed: vital signs, nurses notes, lab test result(s). cp 12:00 Antibiotic administration: Not indicated, the patient has a suspected viral illness. cp 12:15 ED course: VSS. Patient left ED prior to notification of test results and reassessment. cp Patient may return to Ed for reevaluation at any time. 05/10 10:18 Order name: COVID-19/FLU A+B/RSV; Complete Time: 11:49 cp 05/10 11:49 Interpretation: Reviewed. cp 05/10 10:18 Order name: Strep; Complete Time: 11:49 cp 05/10 10:35 Order name: Urine Dipstick-Ancillary; Complete Time: 11:49 EDMS 05/10 11:16 Order name: Throat Culture EDMS 05/10 10:18 Order name: Urine Dipstick-Ancillary (obtain specimen); Complete Time: 10:33 cp 05/10 10:18 Order name: Urine Test (obtain specimen); Complete Time: 10:33 cp Administered Medications: 10:33 Drug: Zofran (Ondansetron) 4 mg Route: PO; ss 10:33 Drug: Tylenol 650 mg Route: PO; ss 10:33 Drug: Meclizine 25 mg Route: PO; ss Disposition Summary: 05/10/22 12:59 Discharge Ordered Location: Home cp Problem: new cp Symptoms: have improved cp Condition: Stable cp Diagnosis - SARS-associated coronavirus as the cause of diseases classified elsewhere cp - Headache cp - Nausea with vomiting, unspecified cp - Dizziness and giddiness cp Followup: cp - With: Private Physician - When: 2 - 3 days - Reason: Recheck today's complaints Discharge Instructions: - Discharge Summary Sheet cp - Dizziness cp - Migraine Headache cp - COVID-19 cp - Things to Know about the COVID-19 Pandemic - [facility] cp - Nausea and Vomiting, Adult cp - 10 Things You Can Do to Manage Your COVID-19 Symptoms at Home - [facility] cp - COVID-19: Quarantine vs. Isolation - [facility] cp - Prevent the Spread of COVID-19 if You Are Sick - [facility] cp Forms: - Medication Reconciliation Form cp - Thank You Letter cp - Antibiotic Education cp - Prescription Opioid Use cp Prescriptions: - Ibuprofen 600 mg Oral Tablet - take 1 tablet by ORAL route every 8 hours As needed take with food; 30 tablet; cp Refills: 0, Product Selection Permitted - Zofran 4 mg Oral Tablet - take 1 tablet by ORAL route every 12 hours As needed; 20 tablet; Refills: 0, cp Product Selection Permitted - Meclizine 25 mg Oral Tablet - take 1 tablet by ORAL route every 8 hours As needed; 30 tablet; Refills: 0, cp Product Selection Permitted Addendum: 05/14/2022 17:38 STAFF ATTESTATION STATEMENT: I was immediately available onsite in the emergency s d2 department for consultation in the care of this patient. I did not see or examine this patient. Anusha Angel MD. Signatures: Dispatcher [employer] EDMI Violeta Arthur RN RN ss Justin Curiel, RISSA PA Anusha Valencia MD MD sd2
--- NOTE | 2022-05-10 13:00 | ER ---
Nurse's Notes [facility] Name: Natanael Dyson Age: 27 yrs Sex: Female : 1995 Arrival Date: 05/10/2022 Time: 09:22 Bed IW1 Private MD: Diagnosis: SARS-associated coronavirus as the cause of diseases classified elsewhere;Headache;Nausea with vomiting, unspecified;Dizziness and giddiness Presentation: 05/10 10:19 Chief complaint: Patient states: headache x 3 days, N/V, cough, sore throat and nasal ss congestion that began 3 days ago. Coronavirus screen: Client denies travel out of the [place] in the last 14 days. Ebola Screen: Patient denies exposure to infectious person. Patient denies travel to an Ebola-affected area in the 21 days before illness onset. Initial Sepsis Screen: Does the patient meet any 2 criteria? No. Patient's initial sepsis screen is negative. Does the patient have a suspected source of infection? No. Patient's initial sepsis screen is negative. Risk Assessment: Do you want to hurt yourself or someone else? Patient reports no desire to harm self or others. Onset of symptoms was May 07, 2022. 10:19 Method Of Arrival: Ambulatory ss 10:19 Acuity: THIERNO 4 ss Historical: - Allergies: 10:21 Compazine; ss 10:21 Reglan; ss - PMHx: 10:21 Asthma; Kidney stone; Migraine; UTI; ss - PSHx: 10:21 section; tubal ligation; ss Vital Signs: 10:19 BP 124 / 92; Pulse 93; Resp 16; Temp 98.0(O); Pulse Ox 100% on R/A; Weight 56.7 kg; ss Height 5 ft. 1 in. (154.94 cm); Pain 8/10; 10:19 Body Mass Index 23.62 (56.70 kg, 154.94 cm) ss ED Course: :22 Patient arrived in ED. am2 09:24 Justin Curiel PA is PHCP. cp 09:24 Anusha Angel MD is Attending Physician. cp 10:21 Triage completed. ss 10:21 Arm band placed on right wrist. ss 13:24 No provider procedures requiring assistance completed. Patient did not have IV access ss during this emergency room visit. Administered Medications: 10:33 Drug: Zofran (Ondansetron) 4 mg Route: PO; ss 10:33 Drug: Tylenol 650 mg Route: PO; ss 10:33 Drug: Meclizine 25 mg Route: PO; ss Outcome: 12:59 Discharge ordered by . cp 13:24 Discharged to home left prior to receiving discharge instructions ss 13:24 Patient left the ED. Signatures: Violeta Arthur RN RN Justin Curiel PA PA cp Moreno, Amanda am2
[2022-05-10 13:28] VITALS: BP 124/92; TEMP 98; O2SAT 100
== END 2022-05-10 13:24 | disposition home or self-care (01) ==
LOC: ER 09:20
DX: U07.1 COVID-19 (principal); R11.2 Nausea with vomiting, unspecified; R42 Dizziness and giddiness; Z88.8 Allergy status to other drugs, medicaments and biological substances
CPT/HCPCS: 87070; 87081; 81003; 0241U; 99282; J8597; Q0162

== ENCOUNTER 2022-05-24 07:52 | Emergency (ER) | payer OTHER ==
--- OUTSIDE RECORDS SUMMARY | 2022-05-24 08:10 | XMS REPORT | Continuity of Care Document ---
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 [id number] 25mg Take 1 U nivers 25 mg 1-03 tablet by ity of tablet 00:00: mouth in [place] [address] the [facility] morning [place] and 1 tablet in the evening. Take with meals. carvediloL 2021-05 Yes [id number] 25mg Take 1 U nivers 25 mg 1-03 tablet by ity of tablet 00:00: mouth in [address] morning [place] and 1 tablet in the evening. Take with meals. carvediloL 2021-05 Yes [id number] 25mg Take 1 U nivers 25 mg 1-03 tablet by ity of tablet 00:00: mouth in [place] [address] the [facility] morning [place] and 1 tablet in the evening. Take with meals. carvediloL 2021-05 Yes [id number] 25mg Take 1 U nivers 25 mg 1-03 tablet by ity of tablet 00:00: mouth in [address] morning [place] and 1 tablet in the evening. Take with meals. carvediloL 2021-05 Yes [id number] 25mg Take 1 U nivers 25 mg 1-03 tablet by ity of tablet 00:00: mouth in [address] morning [place] and 1 tablet in the evening. Take with meals. carvediloL 2021-05 Yes [id number] 25mg Take 1 U nivers 25 mg 1-03 tablet by ity of tablet 00:00: mouth in [address] morning [place] and 1 tablet in the evening. Take with meals. ondansetron 2021-05- No [id number] 4mg Take 1 [facility] 4 mg 05-15 tablet by ity of disintegrat 00:00: 00:00 mouth [place] tablet 00 :00 every 8 Medica l (eight) Branch hours as needed for Nausea and Vomiting (N/V). ketorolac 2021-05- No [id number] 10mg Take 1 Univers 10 mg 05-15 tablet by ity of tablet 00:00: 00:00 mouth [place] 00 :00 every 6 Medical (six) Branch hours as needed for Pain (scale 7-10). proMETHazin 2021-05- No [id number] 25mg Take 1 Univers e 25 mg 05-15 tablet by ity of tablet 00:00: 00:00 mouth [place] 00 :00 every 6 Medical (six) Branch hours as needed for N/V unresponsi ve to Ondansetro n. cephALEXin 2021-05- Yes [id number] 500mg Take 1 Univers 500 mg 05-15 capsule by ity of capsule 00:00: 05:59 mouth 4 [place] 00 :00 (four) Medical times Branch daily for 3 days. cephALEXin 2021-05- Yes [id number] 500mg Take 1 [facility] 500 mg 05-15 capsule by ity of capsule 00:00: 05:59 mouth 4 [place] 00 :00 (four) Medical times Branch daily for 3 days. cephALEXin 2021-05- Yes [id number] 500mg Take 1 Univers 500 mg 05-15 capsule by ity of capsule 00:00: 05:59 mouth 4 [place] 00 :00 (four) Medical times Branch daily for 3 days. predniSONE 2021-05- Yes [id number] 20mg Take 1 Univers 20 mg 0-03-15 [...] IV ity of PF 16:00: 16:00 Push, [place] injection 00 :00 ONCE, 1 Medical 10 mg dose, On [facility] 03/11/22 at 1100, 1 mL diphenhydrA 2021-05 No 25mg 25 mg, Uni vers MINE 0-30 10-30 Slow IV ity of (BENADRYL) 15:46: 16:00 [place], [place] injection 00 :00 ONCE, 1 Medical 25 mg dose, On [facility] 03/11/22 at 1100, STAT NaCl 0.9% 2021-05 No 1000mL at 999 Uni vers (NS) IV 0-30 10-30 mL/hr, ity of infusion 15:45: 16:04 [place] 1,000 mL 00 :00 s, ONCE, 1 Medic al dose, On [facility] 03/11/22 at 1045, Routine butalbital- 2021-05- No 1{tbl} 1 tablet, Univers acetaminoph 0-30 10-30 Oral, ity of en-caff 15:00: 15:05 ONCE, 1 [place] (ESGIC) 00 :00 dose, On Medical 50-325-40 Sun [place] mg tablet 1 03/11/22 tablet at 1015, [place] ketorolac 2021-05- No 15mg 15 mg, Unive rs (TORADOL) 0-30 10-30 Slow IV ity of injection 14:45: 15:05 Push, [place] 15 mg 00 :00 ONCE, 1 Medical dose, On [facility] 03/11/22 at 0945, [place] proMETHazin 2021-05- No 12.5mg 12.5 mg, Univers e 0-30 10-30 IV ity of (PHENERGAN) 14:45: 15:04 Piggyback, [place] 12.5 mg in 00 :00 ONCE, 1 Medica l NaCl 0.9% dose, On [place] (NS) 50 mL Sun IV 03/11/22 piggyback at 0945, [place] proMETHazin 2021-05 Yes [id number] 25mg Take 1 Univers e 25 mg 0-30 tablet by ity of tablet 00:00: mouth [place] 00 every 6 Medical (six) Branch hours as needed for Nausea and Vomiting (N/V). methocarbam 2021-05 Yes [id number] 500mg Take 1 Univers oL 500 mg 0-30 tablet by ity o f tablet 00:00: mouth 3 [place] 00 (three) Medical times Branch daily as needed for Pain (scale 7-10). proMETHazin 2021-05 Yes [id number] 25mg Take 1 Univers e 25 mg 0-30 tablet by ity of tablet 00:00: mouth [place] 00 every 6 Medical (six) Branch hours as needed for Nausea and Vomiting (N/V). methocarbam 2021-05 Yes [id number] 500mg Take 1 Univers oL 500 mg 0-30 tablet by ity o f tablet 00:00: mouth 3 00 (three) Medical times Branch daily as needed for Pain (scale 7-10). proMETHazin 2021-05 Yes [id number] 25mg Take 1 Univers e 25 mg 0-30 tablet by ity of tablet 00:00: mouth [place] 00 every 6 Medical (six) Branch hours as needed for Nausea and Vomiting (N/V). methocarbam 2021-05 Yes [id number] 500mg Take 1 Univers oL 500 mg 0-30 tablet by ity o f tablet 00:00: mouth 3 00 (three) Medical times Branch daily as needed for Pain (scale 7-10). proMETHazin 2021-05 Yes [id number] 25mg Take 1 Univers e 25 mg 0-30 tablet by ity of tablet 00:00: mouth [place] 00 every 6 Medical (six) Branch hours as needed for Nausea and Vomiting (N/V). methocarbam 2021-05 Yes [id number] 500mg Take 1 Univers oL 500 mg 0-30 tablet by ity o f tablet 00:00: mouth 3 00 (three) Medical times Branch daily as needed for Pain (scale 7-10). proMETHazin 2021-05 Yes [id number] 25mg Take 1 Univers e 25 mg 0-30 tablet by ity of tablet 00:00: mouth [place] 00 every 6 Medical (six) Branch hours as needed for Nausea and Vomiting (N/V). methocarbam 2021-05 Yes [id number] 500mg Take 1 Univers oL 500 mg 0-30 tablet by ity o f tablet 00:00: mouth 3 (three) Medical times Branch daily as needed for Pain (scale 7-10). proMETHazin 2021-05 Yes [id number] 25mg Take 1 Univers e 25 mg 0-30 tablet by ity of tablet 00:00: mouth [place] 00 every 6 Medical (six) Branch hours as needed for Nausea and Vomiting (N/V). methocarbam 2021-05 Yes [id number] 500mg Take 1 Univers oL 500 mg 0-30 tablet by ity o f tablet 00:00: mouth 3 (three) Medical times Branch daily as needed for Pain (scale 7-10). proMETHazin 2021-05 Yes [id number] 25mg Take 1 Univers e 25 mg 0-30 tablet by ity of tablet 00:00: mouth [place] 00 every 6 Medical (six) Branch hours as needed for Nausea and Vomiting (N/V). methocarbam 2021-05 Yes [id number] 500mg Take 1 Univers oL 500 mg 0-30 tablet by ity o f tablet 00:00: mouth (three) Medical times Branch daily as needed for Pain (scale 7-10). proMETHazin 2021-05 Yes [id number] 25mg Take 1 Univers e 25 mg 0-30 tablet by ity of tablet 00:00: mouth [place] 00 every 6 Medical (six) Branch hours as needed for Nausea and Vomiting (N/V). methocarbam 2021-05 Yes [id number] 500mg Take 1 Univers oL 500 mg 0-30 tablet by ity o f tablet 00:00: mouth (three) Medical times Branch daily as needed for Pain (scale 7-10). proMETHazin 2021-05 Yes [id number] 25mg Take 1 Univers e 25 mg 0-30 tablet by ity of tablet 00:00: mouth [place] 00 every 6 Medical (six) Branch hours as needed for Nausea and Vomiting (N/V). methocarbam 2021-05 Yes [id number] 500mg Take 1 Univers oL 500 mg 0-30 tablet by ity o f tablet 00:00: mouth 3 (three) Medical times Branch daily as needed for Pain (scale 7-10). proMETHazin 2021-05 Yes [id number] 25mg Take 1 Univers e 25 mg 0-30 tablet by ity of tablet 00:00: mouth [place] 00 every 6 Medical (six) Branch hours as needed for Nausea and Vomiting (N/V). methocarbam 2021-05 Yes [id number] 500mg Take 1 Univers oL 500 mg 0-30 tablet by ity o f tablet 00:00: mouth 3 [place] 00 (three) Medical times Branch daily as needed for Pain (scale 7-10). proMETHazin 2021-05 Yes [id number] 25mg Take 1 Univers e 25 mg 0-30 tablet by ity of tablet 00:00: mouth [place] 00 every 6 Medical (six) Branch hours as needed for Nausea and Vomiting (N/V). methocarbam 2021-05 Yes [id number] 500mg Take 1 Univers oL 500 mg 0-30 tablet by ity o f tablet 00:00: mouth 3 [place] 00 (three) Medical times Branch daily as needed for Pain (scale 7-10). proMETHazin 2021-05 Yes [id number] 25mg Take 1 Univers e 25 mg 0-30 tablet by ity of tablet 00:00: mouth [place] 00 every 6 Medical (six) Branch hours as needed for Nausea and Vomiting (N/V). proMETHazin 2021-05 Yes [id number] 25mg Take 1 Univers e 25 mg 0-30 tablet by ity of tablet 00:00: mouth [place] 00 every 6 Medical (six) Branch hours as needed for Nausea and Vomiting (N/V). proMETHazin 2021-05 Yes [id number] 25mg Take 1 Univers e 25 mg 0-30 tablet by ity of tablet 00:00: mouth [place] 00 every 6 Medical (six) Branch hours as needed for Nausea and Vomiting (N/V). proMETHazin 2021-05 Yes [id number] 25mg Take 1 Univers e 25 mg 0-30 tablet by ity of tablet 00:00: mouth [place] 00 every 6 Medical (six) Branch hours as needed for Nausea and Vomiting (N/V). proMETHazin 2021-05 Yes [id number] 25mg Take 1 Univers e 25 mg 0-30 tablet by ity of tablet 00:00: mouth [place] 00 every 6 Medical (six) Branch hours as needed for Nausea and Vomiting (N/V). proMETHazin 2021-05 Yes [id number] 25mg Take 1 Univers e 25 mg 0-30 tablet by ity of tablet 00:00: mouth [place] 00 every 6 Medical (six) Branch hours as needed for Nausea and Vomiting (N/V). proMETHazin 2021-05 Yes [id number] 25mg Take 1 Univers e 25 mg 0-30 tablet by ity of tablet 00:00: mouth [place] 00 every 6 Medical (six) Branch hours as needed for Nausea and Vomiting (N/V). proMETHazin 2021-05 Yes [id number] 25mg Take 1 Univers e 25 mg 0-30 tablet by ity of tablet 00:00: mouth [place] 00 every 6 Medical (six) Branch hours as needed for Nausea and Vomiting (N/V). proMETHazin 2021-05 Yes [id number] 25mg Take 1 Univers e 25 mg 0-30 tablet by ity of tablet 00:00: mouth [place] 00 every 6 Medical (six) Branch hours as needed for Nausea and Vomiting (N/V). proMETHazin 2021-05 Yes [id number] 25mg Take 1 Univers e 25 mg 0-30 tablet by ity of tablet 00:00: mouth [place] 00 every 6 Medical (six) Branch hours as needed for Nausea and Vomiting (N/V). proMETHazin 2021-05 Yes [id number] 25mg Take 1 Univers e 25 mg 0-30 tablet by ity of tablet 00:00: mouth [place] 00 every 6 Medical (six) Branch hours as needed for Nausea and Vomiting (N/V). methocarbam 2021-05- No [id number] 500mg Take 1 Univers oL 500 mg 0-30 11-26 tablet by ity of tablet 00:00: 00:00 mouth 3 [place] 00 :00 (three) Medical times Branch daily as needed for Pain (scale 7-10). topiramate 2021-05 Yes [id number] 100mg Take 4 Univers 25 mg 0-21 tablets by ity of tablet 00:00: mouth in [place] 00 the Medical morning. Branch topiramate 2021-05 Yes [id number] 100mg Take 4 Univers 25 mg 0-21 tablets by ity of tablet 00:00: mouth in [place] 00 the Medical morning. Branch topiramate 2021-05 Yes [id number] 100mg Take 4 Univers 25 mg 0-21 tablets by ity of tablet 00:00: mouth in [place] 00 the Medical morning. Branch topiramate 2-1 Yes [id number] 100mg Take 4 Univers 25 mg 0-21 tablets by ity of tablet 00:00: mouth in [place] 00 the Medical morning. Branch topiramate 2-1 Yes [id number] 100mg Take 4 Univers 25 mg 0-21 tablets by ity of tablet 00:00: mouth in [place] 00 the Medical morning. Branch topiramate 2-1 Yes [id number] 100mg Take 4 Univers 25 mg 0-21 tablets by ity of tablet 00:00: mouth in [place] 00 the Medical morning. Branch topiramate 2-1 Yes [id number] 100mg Take 4 Univers 25 mg 0-21 tablets by ity of tablet 00:00: mouth in [place] 00 the Medical morning. Branch topiramate 2-1 Yes [id number] 100mg Take 4 Univers 25 mg 0-21 tablets by ity of tablet 00:00: mouth in [place] 00 the Medical morning. Branch topiramate 2021-1 Yes [id number] 100mg Take 4 Univers 25 mg 0-21 tablets by ity of tablet 00:00: mouth in [place] the Medical morning. Branch topiramate 2-1 Yes [id number] 100mg Take 4 Univers 25 mg 0-21 tablets by ity of tablet 00:00: mouth in [place] 00 the Medical morning. Branch topiramate 2-1 Yes [id number] 100mg Take 4 Univers 25 mg 0-21 tablets by ity of tablet 00:00: mouth in [place] 00 the Medical morning. Branch topiramate 2-1 Yes [id number] 100mg Take 4 Univers 25 mg 0-21 tablets by ity of tablet 00:00: mouth in [place] the Medical morning. Branch topiramate 2-1 Yes [id number] 100mg Take 4 Univers 25 mg 0-21 tablets by ity of tablet 00:00: mouth in [place] 00 the Medical morning. Branch topiramate 2022-1 Yes [id number] 100mg Take 4 Univers 25 mg 0-21 tablets by ity of tablet 00:00: mouth in [place] 00 the Medical morning. Branch topiramate 2022-1 Yes [id number] 100mg Take 4 Univers 25 mg 0-21 tablets by ity of tablet 00:00: mouth in [place] 00 the Medical morning. Branch topiramate 2022-1 Yes [id number] 100mg Take 4 Univers 25 mg 0-21 tablets by ity of tablet 00:00: mouth in [place] 00 the Medical morning. Branch topiramate 2021-05 Yes [id number] 100mg Take 4 Univers 25 mg 0-21 tablets by ity of tablet 00:00: mouth in [place] 00 the Medical morning. Branch topiramate 2021-05 Yes [id number] 100mg Take 4 Univers 25 mg 0-21 tablets by ity of tablet 00:00: mouth in [place] 00 the Medical morning. Branch topiramate 2021-05 Yes [id number] 100mg Take 4 Univers 25 mg 0-21 tablets by ity of tablet 00:00: mouth in [place] 00 the Medical morning. Branch topiramate 2021-05 Yes [id number] 100mg Take 4 Univers 25 mg 0-21 tablets by ity of tablet 00:00: mouth in [place] 00 the Medical morning. Branch topiramate 2021-05 Yes [id number] 100mg Take 4 Univers 25 mg 0-21 tablets by ity of tablet 00:00: mouth in [place] 00 the Medical morning. Branch topiramate 2021-05 Yes [id number] 100mg Take 4 Univers 25 mg 0-21 tablets by ity of tablet 00:00: mouth in [place] 00 the Medical morning. Branch topiramate 2021-05 Yes [id number] 100mg Take 4 Univers 25 mg 0-21 tablets by ity of tablet 00:00: mouth in [place] 00 the Medical morning. Branch diphenhydrA 2021-05- No 25mg Take 25 mg Univers MINE 25 mg 0-18 10-18 by mouth ity of capsule 09:39: 00:00 every 6 [place] 59 :00 (six) Medical hours as Branch needed for Allergies. diphenhydrA 2021-05- No 25mg Take 25 mg Univers MINE 25 mg 0-18 10-18 by mouth ity of capsule 09:39: 00:00 every 6 [place] 59 :00 (six) Medical hours as Branch needed for Allergies. diphenhydrA 2021-05- No 25mg Take 25 mg Univers MINE 25 mg 0-18 10-18 by mouth ity of capsule 09:39: 00:00 every 6 [place] 59 :00 (six) Medical hours as Branch [...] 28 :00 Medical Branch albuterol 2021-05 Yes [id number] 2{puff} Inhale 2 Univers 90 0-18 Puffs ity of mcg/actuati 00:00: every 6 [place] on inhaler 00 (six) Medical hours as Branch needed for Wheezing or Shortness of Breath. albuterol 2021-05 Yes [id number] 2{puff} Inhale 2 Univers 90 0-18 Puffs ity of mcg/actuati 00:00: every 6 [place] as on inhaler 00 (six) Medical hours as Branch needed for Wheezing or Shortness of Breath. albuterol 2021-05 Yes [id number] 2{puff} Inhale 2 Univers 90 0-18 Puffs ity of mcg/actuati 00:00: every 6 [place] on inhaler 00 (six) Medical hours as Branch needed for Wheezing or Shortness of Breath. albuterol 2021-05 Yes [id number] 2{puff} Inhale 2 Univers 90 0-18 Puffs ity of mcg/actuati 00:00: every 6 [place] on inhaler 00 (six) Medical hours as Branch needed for Wheezing or Shortness of Breath. albuterol 2021-05 Yes [id number] 2{puff} Inhale 2 Univers 90 0-18 Puffs ity of mcg/actuati 00:00: every 6 [place] on inhaler 00 (six) Medical hours as Branch needed for Wheezing or Shortness of Breath. albuterol 2021-05 Yes [id number] 2{puff} Inhale 2 Univers 90 0-18 Puffs ity of mcg/actuati 00:00: every 6 [place] as on inhaler 00 (six) Medical hours as Branch needed for Wheezing or Shortness of Breath. albuterol 2021-05 Yes [id number] 2{puff} Inhale 2 Univers 90 0-18 Puffs ity of mcg/actuati 00:00: every 6 [place] on inhaler 00 (six) Medical hours as Branch needed for Wheezing or Shortness of Breath. albuterol 2021-05 Yes [id number] 2{puff} Inhale 2 Univers 90 0-18 Puffs ity of mcg/actuati 00:00: every 6 [place] as on inhaler 00 (six) Medical hours as Branch needed for Wheezing or Shortness of Breath. albuterol 2021-05 Yes [id number] 2{puff} Inhale 2 Univers 90 0-18 Puffs ity of mcg/actuati 00:00: every 6 [place] as on inhaler 00 (six) Medical hours as Branch needed for Wheezing or Shortness of Breath. albuterol 2021-05 Yes [id number] 2{puff} Inhale 2 Univers 90 0-18 Puffs ity of mcg/actuati 00:00: every 6 [place] as on inhaler 00 (six) Medical hours as Branch needed for Wheezing or Shortness of Breath. albuterol 2021-05 Yes [id number] 2{puff} Inhale 2 Univers 90 0-18 Puffs ity of mcg/actuati 00:00: every 6 [place] as on inhaler 00 (six) Medical hours as Branch needed for Wheezing or Shortness of Breath. albuterol 2021-05 Yes [id number] 2{puff} Inhale 2 Univers 90 0-18 Puffs ity of mcg/actuati 00:00: every 6 [place] as on inhaler 00 (six) Medical hours as Branch needed for Wheezing or Shortness of Breath. albuterol 2021-05 Yes [id number] 2{puff} Inhale 2 Univers 90 0-18 Puffs ity of mcg/actuati 00:00: every 6 [place] as on inhaler 00 (six) Medical hours as Branch needed for Wheezing or Shortness of Breath. albuterol 2021-05 Yes [id number] 2{puff} Inhale 2 Univers 90 0-18 Puffs ity of mcg/actuati 00:00: every 6 [place] as on inhaler 00 (six) Medical hours as Branch needed for Wheezing or Shortness of Breath. albuterol 2021-05 Yes [id number] 2{puff} Inhale 2 Univers 90 0-18 Puffs ity of mcg/actuati 00:00: every 6 [place] as on inhaler 00 (six) Medical hours as Branch needed for Wheezing or Shortness of Breath. albuterol 2021-05 Yes [id number] 2{puff} Inhale 2 Univers 90 0-18 Puffs ity of mcg/actuati 00:00: every 6 [place] as on inhaler 00 (six) Medical hours as Branch needed for Wheezing or Shortness of Breath. albuterol 2021-05 Yes [id number] 2{puff} Inhale 2 Univers 90 0-18 Puffs ity of mcg/actuati 00:00: every 6 [place] on inhaler 00 (six) Medical hours as Branch needed for Wheezing or Shortness of Breath. albuterol 2021-05 Yes [id number] 2{puff} Inhale 2 Univers 90 0-18 Puffs ity of mcg/actuati 00:00: every 6 [place] on inhaler 00 (six) Medical hours as Branch needed for Wheezing or Shortness of Breath. albuterol 2021-05 Yes [id number] 2{puff} Inhale 2 Univers 90 0-18 Puffs ity of mcg/actuati 00:00: every 6 [place] on inhaler 00 (six) Medical hours as Branch needed for Wheezing or Shortness of Breath. albuterol 2021-05 Yes [id number] 2{puff} Inhale 2 Univers 90 0-18 Puffs ity of mcg/actuati 00:00: every 6 [place] as on inhaler 00 (six) Medical hours as Branch needed for Wheezing or Shortness of Breath. albuterol 2021-05 Yes [id number] 2{puff} Inhale 2 Univers 90 0-18 Puffs ity of mcg/actuati 00:00: every 6 [place] as on inhaler 00 (six) Medical hours as Branch needed for Wheezing or Shortness of Breath. albuterol 2021-05 Yes [id number] 2{puff} Inhale 2 Univers 90 0-18 Puffs ity of mcg/actuati 00:00: every 6 [place] as on inhaler 00 (six) Medical hours as Branch needed for Wheezing or Shortness of Breath. albuterol 2021-05 Yes [id number] 2{puff} Inhale 2 Univers 90 0-18 Puffs ity of mcg/actuati 00:00: every 6 [place] as on inhaler 00 (six) Medical hours as Branch needed for Wheezing or Shortness of Breath. albuterol 2021-05 Yes [id number] 2{puff} Inhale 2 Univers 90 0-18 Puffs ity of mcg/actuati 00:00: every 6 [place] as on inhaler 00 (six) Medical hours as Branch needed for Wheezing or Shortness of Breath. albuterol 2021-05 Yes [id number] 2{puff} Inhale 2 Univers 90 0-18 Puffs ity of mcg/actuati 00:00: every 6 [place] as on inhaler 00 (six) Medical hours as Branch needed for Wheezing or Shortness of Breath. albuterol 2021-05 Yes [id number] 2{puff} Inhale 2 Univers 90 0-18 Puffs ity of mcg/actuati 00:00: every 6 [place] as on inhaler 00 (six) Medical hours as Branch needed for Wheezing or Shortness of Breath. albuterol 2021-05 Yes [id number] 2{puff} Inhale 2 Univers 90 0-18 Puffs ity of mcg/actuati 00:00: every 6 [place] as on inhaler 00 (six) Medical hours as Branch needed for Wheezing or Shortness of Breath. albuterol 2021-05 Yes [id number] 2{puff} Inhale 2 Univers 90 0-18 Puffs [...] a 24 hour period. benzonatate 2021-05- Yes [id number] 200mg Take 1 Univers 200 mg 0-18 10-26 capsule by ity of capsule 00:00: 04:59 mouth 3 [place] 00 :00 (three) Medical times Branch daily as needed for Cough for up to 7 days. benzonatate 2021-05- Yes [id number] 200mg Take 1 Univers 200 mg 0-18 10-26 capsule by ity of capsule 00:00: 04:59 mouth 3 [place] 00 :00 (three) Medical times Branch daily as needed for Cough for up to 7 days. benzonatate 2021-05- Yes [id number] 200mg Take 1 Univers 200 mg 0-18 10-26 capsule by ity of capsule 00:00: 04:59 mouth 3 [place] 00 :00 (three) Medical times Branch daily as needed for Cough for up to 7 days. benzonatate 2021-05- Yes [id number] 200mg Take 1 Univers 200 mg 0-18 10-26 capsule by ity of capsule 00:00: 04:59 mouth 3 [place] 00 :00 (three) Medical times Branch daily as needed for Cough for up to 7 days. benzonatate 2021-05- Yes [id number] 200mg Take 1 Univers 200 mg 0-18 - capsule by ity of capsule 00:00: 04:59 mouth 3 [place] 00 :00 (three) Medical times [place] daily as needed for Cough for up to 7 days. benzonatate 2021-05- Yes [id number] 200mg Take 1 Univers 200 mg 0-18 - capsule by ity of capsule 00:00: 04:59 mouth 3 [place] 00 :00 (three) Medical times Branch daily as needed for Cough for up to 7 days. SUMAtriptan 2021-05- Yes [id number] 50mg Take 1 Univers 50 mg 0-18 - 9105 tablet by ity of tablet 00:00: 04:59 mouth [place] 00 :00 now for 1 Medical dose. Branch SUMAtriptan 2021-05- Yes [id number] 50mg Take 1 Univers 50 mg 0-18 - 9105 tablet by ity of tablet 00:00: 04:59 mouth [place] 00 :00 now for 1 Medical dose. Branch butalbital- 2021-05- No 1{tbl} 1 tablet, Univers acetaminoph 0-12 10-12 Oral, ity of en-caff 08:15: 08:09 ONCE, 1 [place] (ESGIC) 00 :00 dose, On Medical 50-325-40 [...] IV ity of (BENADRYL) 06:30: 06:38 Push, [place] injection 00 :00 ONCE, 1 Medical 25 mg dose, On Branch 02/21/22 at 0130, STAT FENTanyl PF 2021-05 No 50ug 50 mcg, Un sushant (SUBLIMAZE 002-18 Slow IV ity o f (PF)) 20:30: 19:44 [place], [place] injection 00 :00 ONCE, 1 Medical 50 mcg dose, On Branch [place] 02/18/22 at 1530, Routine ketorolac 2021-05 No [...] 1 Medical 50 mcg dose, On Branch [place] 02/18/22 at 1300, Routine ondansetron 2021-05- No 4mg 4 mg, Slow Univers (ZOFRAN 02-18 IV [place], ity of (PF)) 17:15: 17:27 ONCE, 1 [place] injection 4 00 :00 dose, On Medi yessi mg [facility] 02/18/22 at 1215, [place] morpHINE (2 2021- No 4mg 4 mg, Slow Univers mg/mL) 01-18 IV [place], ity of injection 4 15:15: 14:49 ONCE, 1 [place] mg 00 :00 dose, On Medical [facility] 01/18/22 Branch at 1015, STAT ondansetron 2021- No 4mg 4 mg, Slow Univers (ZOFRAN 01-18 IV [place], ity of (PF)) 13:30: 13:33 ONCE, 1 [place] injection 4 00 :00 dose, On Medi yessi mg [facility] 01/18/22 Branch at 0830, [place] morpHINE (4 2021-2021- No 4mg 4 mg, Slow Univers mg/mL) 01-18 IV [place], ity of injection 4 13:30: 13:34 ONCE, 1 [place] mg 00 :00 dose, On Medical [facility] 01/18/22 Branch at 0830, STAT morpHINE [...] Branch at 0630, [place] iodixanoL 2021- No [id number] 80mL 80 mL, U nivers (VISIPAQUE 01-18 [...] Indication s: acute pain ondansetron 0 Yes [id number] 4mg Take 1 Univers 4 mg 9-08 [id number] tablet by ity of disintegrat 00:00: mouth [place] ing tablet 00 every 8 Medica l (eight) Branch hours as needed for Nausea and Vomiting (N/V). ibuprofen 2022-0 Yes [id number] 600mg Take 1 Univers 600 mg 9-08 [id number] tablet by ity of tablet 00:00: mouth [place] 00 every 6 Medical (six) Branch hours as needed for Pain (scale 4-6). traMADoL 50 2-0 Yes [id number] 50mg Take 1 Univ ers mg tablet 9-08 tablet by ity o f 00:00: mouth [place] 00 every 6 Medical (six) Branch hours as needed for Pain (scale 7-10). Indication s: acute pain ondansetron 2-0 Yes [id number] 4mg Take 1 Univers 4 mg 9-08 [id number] tablet by ity of disintegrat 00:00: mouth [place] ing tablet 00 every 8 Medica l (eight) Branch hours as needed for Nausea and Vomiting (N/V). ibuprofen 2-0 Yes [id number] 600mg Take 1 [facility] 600 mg 9-08 [id number] tablet by ity of tablet 00:00: mouth [place] 00 every 6 Medical (six) Branch hours as needed for Pain (scale 4-6). traMADoL 50 2-0 Yes [id number] 50mg Take 1 [facility] ers mg tablet 9-08 tablet by ity o f 00:00: mouth [place] 00 every 6 Medical (six) Branch hours as needed for Pain (scale 7-10). Indication s: acute pain ondansetron 2-0 Yes [id number] 4mg Take 1 [facility] 4 mg 9-08 [id number] tablet by ity of disintegrat 00:00: mouth [place] ing tablet 00 every 8 Medica l (eight) Branch hours as needed for Nausea and Vomiting (N/V). ibuprofen 2022-0 Yes [id number] 600mg Take 1 [facility] 600 mg 9-08 [id number] tablet by ity of tablet 00:00: mouth [place] 00 every 6 Medical (six) Branch hours as needed for Pain (scale 4-6). traMADoL 50 2022-0 Yes [id number] 50mg Take 1 [facility] ers mg tablet 9-08 tablet by ity o f 00:00: mouth [place] 00 every 6 Medical (six) Branch hours as needed for Pain (scale 7-10). Indication s: acute pain ondansetron 2022-0 Yes [id number] 4mg Take 1 [facility] 4 mg 9-08 [id number] tablet by ity of disintegrat 00:00: mouth [place] ing tablet 00 every 8 Medica l (eight) Branch hours as needed for Nausea and Vomiting (N/V). ibuprofen 2-0 Yes [id number] 600mg Take 1 [facility] 600 mg 9-08 [id number] tablet by ity of tablet 00:00: mouth [place] 00 every 6 Medical (six) Branch hours as needed for Pain (scale 4-6). traMADoL 50 2021-0 Yes [id number] 50mg Take 1 [facility] ers mg tablet 9-08 tablet by ity o f 00:00: mouth [place] 00 every 6 Medical (six) Branch hours as needed for Pain (scale 7-10). Indication s: acute pain ondansetron 2021-0 Yes [id number] 4mg Take 1 [facility] 4 mg 9-08 [id number] tablet by ity of disintegrat 00:00: mouth [place] ing tablet 00 every 8 Medica l (eight) Branch hours as needed for Nausea and Vomiting (N/V). ibuprofen 2021-0 Yes [id number] 600mg Take 1 [facility] 600 mg 9-08 [id number] tablet by ity of tablet 00:00: mouth [place] 00 every 6 Medical (six) Branch hours as needed for Pain (scale 4-6). traMADoL 50 2021-0 Yes [id number] 50mg Take 1 [facility] ers mg tablet 9-08 tablet by ity o f 00:00: mouth [place] 00 every 6 Medical (six) Branch hours as needed for Pain (scale 7-10). Indication s: acute pain ondansetron 2-0 Yes [id number] 4mg Take 1 [facility] 4 mg 9-08 [id number] tablet by ity of disintegrat 00:00: mouth [place] ing tablet 00 every 8 Medica l (eight) Branch hours as needed for Nausea and Vomiting (N/V). ibuprofen 2022-0 Yes [id number] 600mg Take 1 [facility] 600 mg 9-08 [id number] tablet by ity of tablet 00:00: mouth [place] 00 every 6 Medical (six) Branch hours as needed for Pain (scale 4-6). traMADoL 50 2021-0 Yes [id number] 50mg Take 1 [facility] ers mg tablet 9-08 tablet by ity o f 00:00: mouth [place] 00 every 6 Medical (six) Branch hours as needed for Pain (scale 7-10). Indication s: acute pain ondansetron 2021-0 Yes [id number] 4mg Take 1 [facility] 4 mg - [id number] tablet by ity of disintegrat 00:00: mouth [place] ing tablet 00 every 8 Medica l (eight) Branch hours as needed for Nausea and Vomiting (N/V). ibuprofen 2021-0 Yes [id number] 600mg Take 1 [facility] 600 mg - [id number] tablet by ity of tablet 00:00: mouth [place] 00 every 6 Medical (six) Branch hours as needed for Pain (scale 4-6). traMADoL 50 2021-0 Yes [id number] 50mg Take 1 [facility] ers mg tablet 01-18 tablet by ity o f 00:00: mouth [place] 00 every 6 Medical (six) Branch hours as needed for Pain (scale 7-10). Indication s: acute pain ondansetron 2021-0 Yes [id number] 4mg Take 1 [facility] 4 mg - [id number] tablet by ity of disintegrat 00:00: mouth [place] ing tablet 00 every 8 Medica l (eight) Branch hours as needed for Nausea and Vomiting (N/V). ibuprofen 2021-0 Yes [id number] 600mg Take 1 [facility] 600 mg 01-18 [id number] tablet by ity of tablet 00:00: mouth [...] s: acute pain ondansetron 2021-0 2022- No [id number] 4mg Take 1 [facility] 4 mg -02-27 [id number] tablet by ity of disintegrat 00:00: 00:00 [place] tablet 00 :00 every 8 Medica l (eight) Branch hours as needed for Nausea and Vomiting (N/V). ibuprofen 2021-0 2022- No [id number] 600mg Take 1 [facility] 600 mg -02-27 [id number] tablet by ity o f tablet 00:00: [...] Indication s: acute pain ondansetron 2021-2021- No [id number] 4mg Take 1 [facility] 4 mg 9-12 20- [id number] tablet by ity of disintegrat 00:00: 00:00 [place] tablet 00 :00 every 8 Medica l (eight) Branch hours as needed for Nausea and Vomiting (N/V). ibuprofen 2021-2021- No [id number] 600mg Take 1 [facility] 600 mg -02-27 [id number] tablet by ity o f tablet 00:00: [...] Indication s: acute pain ondansetron 2021-2021- No [id number] 4mg Take 1 [facility] 4 mg -02-27 [id number] tablet by ity of disintegrat 00:00: 00:00 [place] tablet 00 :00 every 8 Medica l (eight) Branch hours as needed for Nausea and Vomiting (N/V). ibuprofen 2021-2021- No [id number] 600mg Take 1 [facility] 600 mg 9-02-27 [id number] tablet by ity o f tablet 00:00: [...] Indication s: acute pain ondansetron 2021- No [id number] 4mg Take 1 [facility] 4 mg 01-18 [id number] tablet by ity of disintegrat 00:00: 00:00 [place] tablet 00 :00 every 8 Medica l (eight) Branch hours as needed for Nausea and Vomiting (N/V). ibuprofen 2021- No [id number] 600mg Take 1 [facility] 600 mg 01-18 [id number] tablet by ity o f tablet 00:00: 00:00 mouth [place] 00 :00 every 6 Medical (six) Branch hours as needed for Pain (scale 4-6). predniSONE 2021- No [id number] 40mg Take 2 [facility] 20 mg 01-16 tablets by ity of tablet 00:00: 04:59 mouth in [place] 00 :00 the Medical morning Branch for 7 days. predniSONE 2021-2021- No [id number] 40mg Take 2 [facility] 20 mg 01-16 tablets by ity of tablet 00:00: 04:59 mouth in [place] 00 :00 the [facility] Branch for 7 days. morpHINE (4 2021- No 4mg 4 mg, Slow [facility] mg/mL) 01-15 IV [place], ity of injection 4 16:15: 15:28 ONCE, 1 [place] mg 00 :00 dose, On Medical 01/15/22 Branch at 1115, [place] proMETHazin No 12.5mg 12.5 mg, Univers e 01-15 IV ity of (PHENERGAN) 15:30: 15:28 [place], [place] 12.5 mg in 00 :00 ONCE, 1 [...] at 0915, 1 mL proMETHazin 0 Yes [id number] 25mg Take 1 [facility] e 25 mg 9-05 tablet by ity of tablet 00:00: mouth [place] 00 every 6 Medical (six) Branch hours as needed for Nausea and Vomiting (N/V). proMETHazin 2021-0 Yes [id number] 25mg Take 1 [facility] e 25 mg 9-05 tablet by ity of tablet 00:00: mouth [place] 00 every 6 Medical (six) Branch hours as needed for Nausea and Vomiting (N/V). proMETHazin 2021-0 Yes [id number] 25mg Take 1 [facility] e 25 mg 9-05 tablet by ity of tablet 00:00: mouth [place] 00 every 6 Medical (six) Branch hours as needed for Nausea and Vomiting (N/V). proMETHazin 2021-0 Yes [id number] 25mg Take 1 [facility] e 25 mg 9-05 tablet by ity of tablet 00:00: mouth [place] 00 every 6 Medical (six) Branch hours as needed for Nausea and Vomiting (N/V). proMETHazin 2021-0 Yes [id number] 25mg Take 1 [facility] e 25 mg 9-05 tablet by ity of tablet 00:00: mouth [place] 00 every 6 Medical (six) Branch hours as needed for Nausea and Vomiting (N/V). proMETHazin 2022-0 Yes [id number] 25mg Take 1 [facility] e 25 mg 9-05 tablet by ity of tablet 00:00: mouth [place] 00 every 6 Medical (six) Branch hours as needed for Nausea and Vomiting (N/V). proMETHazin Yes [id number] 25mg Take 1 [facility] e 25 mg 9-05 tablet by ity of tablet 00:00: mouth [place] 00 every 6 Medical (six) Branch hours as needed for Nausea and Vomiting (N/V). proMETHazin Yes [id number] 25mg Take 1 [facility] e 25 mg 9-05 tablet by ity of tablet 00:00: mouth [place] 00 every 6 Medical (six) Branch hours as needed for Nausea and Vomiting (N/V). proMETHazin Yes [id number] 25mg Take 1 [facility] e 25 mg 9-05 tablet by ity of tablet 00:00: mouth [place] 00 every 6 Medical (six) Branch hours as needed for Nausea and Vomiting (N/V). proMETHazin 2021- No [id number] 25mg Take 1 [facility] e 25 mg 9-05 10-18 tablet by ity of tablet 00:00: 00:00 mouth [place] 00 :00 every 6 Medical (six) Branch hours as needed for Nausea and Vomiting (N/V). proMETHazin 2021- No [id number] 25mg Take 1 [facility] e 25 mg 9-05 10-18 tablet by ity of tablet 00:00: 00:00 mouth [place] 00 :00 every 6 Medical (six) Branch hours as needed for Nausea and Vomiting (N/V). proMETHazin 2021- No [id number] 25mg Take 1 [facility] e 25 mg 9-05 10-18 tablet by ity of tablet 00:00: 00:00 mouth [place] 00 :00 every 6 Medical (six) Branch hours as needed for Nausea and Vomiting (N/V). proMETHazin 2021- No [id number] 25mg Take 1 Univers e 25 mg [...] IV ity of (BENADRYL) 23:45: 23:51 [place], [place] injection 00 :00 ONCE, 1 Medical 25 mg dose, On Branch [facility] 01/08/22 at 1845, STAT dexamethaso 2021- No 10mg 10 mg, Uni vers ne sod phos 01-08 Slow IV ity of PF 23:45: 23:50 [place], [place] injection 00 :00 ONCE, 1 Medical 10 mg dose, On Branch [facility] 01/08/22 at 1845, 1 mL ketorolac 2021- No 30mg 30 mg, Unive rs (TORADOL) 01-08 Slow IV ity of injection 23:45: 23:51 [place], [place] 30 mg 00 :00 ONCE, 1 Medical dose, On Branch [facility] 01/08/22 at 1845, [place] ondansetron Yes [id number] 4mg Take 1 [facility] 4 mg 8-29 tablet by ity of disintegrat 00:00: mouth [place] ing tablet 00 every 8 Medica l (eight) Branch hours as needed for Nausea and Vomiting (N/V). acetaminoph 0 Yes [id number] 650mg Take 1 [facility] en (TYLENOL 8-29 tablet by ity of ARTHRITIS 00:00: mouth [place] PAIN) 650 00 every 8 Medical mg CR (eight) Branch tablet hours as needed for Pain. ketorolac 0 Yes [id number] 10mg Take 1 [facility] nivers 10 mg 8-29 tablet by ity of tablet 00:00: mouth [place] 00 every 6 Medical (six) Branch hours as needed for Pain (scale 4-6) or Pain (scale 7-10). metaxalone 2022-0 Yes [id number] 800mg Take 1 [facility] (SKELAXIN) 8-29 tablet by ity of 800 mg 00:00: mouth in [place] tablet 00 the Medical morning Branch and 1 tablet at noon and 1 tablet in the evening. ondansetron 2022-0 Yes [id number] 4mg Take 1 [facility] 4 mg 8-29 tablet by ity of disintegrat 00:00: mouth [place] ing tablet 00 every 8 Medica l (eight) Branch hours as needed for Nausea and Vomiting (N/V). acetaminoph 2022-0 Yes [id number] 650mg Take 1 [facility] en (TYLENOL 8-29 tablet by ity of ARTHRITIS 00:00: mouth [place] PAIN) 650 00 every 8 Medical mg CR (eight) Branch tablet hours as needed for Pain. ketorolac 2022-0 Yes [id number] 10mg Take 1 U nivers 10 mg 8-29 tablet by ity of tablet 00:00: mouth [place] 00 every 6 Medical (six) Branch hours as needed for Pain (scale 4-6) or Pain (scale 7-10). metaxalone 2-0 Yes [id number] 800mg Take 1 [facility] (SKELAXIN) 8-29 tablet by ity of 800 mg 00:00: mouth in [place] tablet 00 the Medical morning Branch and 1 tablet at noon and 1 tablet in the evening. ondansetron 2-0 Yes [id number] 4mg Take 1 [facility] 4 mg 8-29 tablet by ity of disintegrat 00:00: mouth [place] ing tablet 00 every 8 Medica l (eight) Branch hours as needed for Nausea and Vomiting (N/V). acetaminoph 2-0 Yes [id number] 650mg Take 1 [facility] en (TYLENOL 8-29 tablet by ity of ARTHRITIS 00:00: mouth [place] PAIN) 650 00 every 8 Medical mg CR (eight) Branch tablet hours as needed for Pain. ketorolac 2022-0 Yes [id number] 10mg Take 1 U nivers 10 mg 8-29 tablet by ity of tablet 00:00: mouth [place] 00 every 6 Medical (six) Branch hours as needed for Pain (scale 4-6) or Pain (scale 7-10). metaxalone 2022-0 Yes [id number] 800mg Take 1 [facility] (SKELAXIN) 8-29 tablet by ity of 800 mg 00:00: mouth in [place] tablet 00 the Medical morning Branch and 1 tablet at noon and 1 tablet in the evening. ondansetron 2022-0 Yes [id number] 4mg Take 1 [facility] 4 mg 8-29 tablet by ity of disintegrat 00:00: mouth [place] ing tablet 00 every 8 Medica l (eight) Branch hours as needed for Nausea and Vomiting (N/V). acetaminoph 2022-0 Yes [id number] 650mg Take 1 [facility] en (TYLENOL 8-29 tablet by ity of ARTHRITIS 00:00: mouth [place] PAIN) 650 00 every 8 Medical mg CR (eight) Branch tablet hours as needed for Pain. ketorolac 2022-0 Yes [id number] 10mg Take 1 U nivers 10 mg 8-29 tablet by ity of tablet 00:00: mouth [place] 00 every 6 Medical (six) Branch hours as needed for Pain (scale 4-6) or Pain (scale 7-10). metaxalone 2-0 Yes [id number] 800mg Take 1 [facility] (SKELAXIN) 8-29 tablet by ity of 800 mg 00:00: mouth in [place] tablet 00 the Medical morning Branch and 1 tablet at noon and 1 tablet in the evening. ondansetron 2-0 Yes [id number] 4mg Take 1 [facility] 4 mg 8-29 tablet by ity of disintegrat 00:00: mouth [place] ing tablet 00 every 8 Medica l (eight) Branch hours as needed for Nausea and Vomiting (N/V). acetaminoph 2-0 Yes [id number] 650mg Take 1 [facility] en (TYLENOL 8-29 tablet by ity of ARTHRITIS 00:00: mouth [place] PAIN) 650 00 every 8 Medical mg CR (eight) Branch tablet hours as needed for Pain. ketorolac 2022-0 Yes [id number] 10mg Take 1 U nivers 10 mg 8-29 tablet by ity of tablet 00:00: mouth [place] 00 every 6 Medical (six) Branch hours as needed for Pain (scale 4-6) or Pain (scale 7-10). metaxalone 2022-0 Yes [id number] 800mg Take 1 [facility] (SKELAXIN) 8-29 tablet by ity of 800 mg 00:00: mouth in [place] tablet 00 the Medical morning Branch and 1 tablet at noon and 1 tablet in the evening. ondansetron 2022-0 Yes [id number] 4mg Take 1 [facility] 4 mg 8-29 tablet by ity of disintegrat 00:00: mouth [place] ing tablet 00 every 8 Medica l (eight) Branch hours as needed for Nausea and Vomiting (N/V). acetaminoph 2022-0 Yes [id number] 650mg Take 1 [facility] en (TYLENOL 8-29 tablet by ity of ARTHRITIS 00:00: mouth [place] PAIN) 650 00 every 8 Medical mg CR (eight) Branch tablet hours as needed for Pain. ketorolac 2022-0 Yes [id number] 10mg Take 1 U nivers 10 mg 8-29 tablet by ity of tablet 00:00: mouth [place] 00 every 6 Medical (six) Branch hours as needed for Pain (scale 4-6) or Pain (scale 7-10). metaxalone 2022-0 Yes [id number] 800mg Take 1 [facility] (SKELAXIN) 8-29 tablet by ity of 800 mg 00:00: mouth in [place] tablet 00 the Medical morning Branch and 1 tablet at noon and 1 tablet in the evening. ondansetron 2-0 Yes [id number] 4mg Take 1 [facility] 4 mg 8-29 tablet by ity of disintegrat 00:00: mouth [place] ing tablet 00 every 8 Medica l (eight) Branch hours as needed for Nausea and Vomiting (N/V). acetaminoph 2022-0 Yes [id number] 650mg Take 1 [facility] en (TYLENOL 8-29 tablet by ity of ARTHRITIS 00:00: mouth [place] PAIN) 650 00 every 8 Medical mg CR (eight) Branch tablet hours as needed for Pain. ketorolac 2022-0 Yes [id number] 10mg Take 1 U nivers 10 mg 8-29 tablet by ity of tablet 00:00: mouth [place] 00 every 6 Medical (six) Branch hours as needed for Pain (scale 4-6) or Pain (scale 7-10). metaxalone 2022-0 Yes [id number] 800mg Take 1 [facility] (SKELAXIN) 8-29 tablet by ity of 800 mg 00:00: mouth in [place] tablet 00 the Medical morning Branch and 1 tablet at noon and 1 tablet in the evening. ondansetron 2022-0 Yes [id number] 4mg Take 1 [facility] 4 mg 8-29 tablet by ity of disintegrat 00:00: mouth [place] ing tablet 00 every 8 Medica l (eight) Branch hours as needed for Nausea and Vomiting (N/V). acetaminoph 2022-0 Yes [id number] 650mg Take 1 [facility] en (TYLENOL 8-29 tablet by ity of ARTHRITIS 00:00: mouth [place] PAIN) 650 00 every 8 Medical mg CR (eight) Branch tablet hours as needed for Pain. ketorolac 2022-0 Yes [id number] 10mg Take 1 U nivers 10 mg 8-29 tablet by ity of tablet 00:00: mouth [place] 00 every 6 Medical (six) Branch hours as needed for Pain (scale 4-6) or Pain (scale 7-10). metaxalone 2022-0 Yes [id number] 800mg Take 1 [facility] (SKELAXIN) 8-29 tablet by ity of 800 mg 00:00: mouth in [place] tablet 00 the Medical morning Branch and 1 tablet at noon and 1 tablet in the evening. ondansetron 2-0 Yes [id number] 4mg Take 1 [facility] 4 mg 8-29 tablet by ity of disintegrat 00:00: mouth [place] ing tablet 00 every 8 Medica l (eight) Branch hours as needed for Nausea and Vomiting (N/V). acetaminoph 2022-0 Yes [id number] 650mg Take 1 [facility] en (TYLENOL 8-29 tablet by ity of ARTHRITIS 00:00: mouth [place] PAIN) 650 00 every 8 Medical mg CR (eight) Branch tablet hours as needed for Pain. ketorolac 2022-0 Yes [id number] 10mg Take 1 U nivers 10 mg 8-29 tablet by ity of tablet 00:00: mouth [place] 00 every 6 Medical (six) Branch hours as needed for Pain (scale 4-6) or Pain (scale 7-10). metaxalone 2022-0 Yes [id number] 800mg Take 1 [facility] (SKELAXIN) 8-29 tablet by ity of 800 mg 00:00: mouth in [place] tablet 00 the Medical morning Branch and 1 tablet at noon and 1 tablet in the evening. ondansetron 2021-0 Yes [id number] 4mg Take 1 [facility] 4 mg 8-29 tablet by ity of disintegrat 00:00: mouth [place] ing tablet 00 every 8 Medica l (eight) Branch hours as needed for Nausea and Vomiting (N/V). acetaminoph 2021-0 Yes [id number] 650mg Take 1 [facility] en (TYLENOL 8-29 tablet by ity of ARTHRITIS 00:00: mouth [place] PAIN) 650 00 every 8 Medical mg CR (eight) Branch tablet hours as needed for Pain. ketorolac 2021-0 Yes [id number] 10mg Take 1 U nivers 10 mg 8-29 tablet by ity of tablet 00:00: mouth [place] 00 every 6 Medical (six) Branch hours as needed for Pain (scale 4-6) or Pain (scale 7-10). metaxalone 2021-0 Yes [id number] 800mg Take 1 [facility] (SKELAXIN) 8-29 tablet by ity of 800 mg 00:00: mouth in [place] tablet 00 the Medical morning Branch and 1 tablet at noon and 1 tablet in the evening. acetaminoph 2021-0 Yes [id number] 650mg Take 1 [facility] en (TYLENOL 8-29 tablet by ity of ARTHRITIS 00:00: mouth [place] PAIN) 650 00 every 8 Medical mg CR (eight) Branch tablet hours as needed for Pain. acetaminoph 2021-0 Yes [id number] 650mg Take 1 [facility] en (TYLENOL 8-29 tablet by ity of ARTHRITIS 00:00: mouth [place] PAIN) 650 00 every 8 Medical mg CR (eight) Branch tablet hours as needed for Pain. acetaminoph 2021-0 Yes [id number] 650mg Take 1 [facility] en (TYLENOL 8-29 tablet by ity of ARTHRITIS 00:00: mouth [place] PAIN) 650 00 every 8 Medical mg CR (eight) Branch tablet hours as needed for Pain. acetaminoph 2021-0 Yes [id number] 650mg Take 1 [facility] en (TYLENOL 8-29 tablet by ity of ARTHRITIS 00:00: mouth [place] PAIN) 650 00 every 8 Medical mg CR (eight) Branch tablet hours as needed for Pain. acetaminoph 2021-0 Yes [id number] 650mg Take 1 [facility] en (TYLENOL 8-29 tablet by ity of ARTHRITIS 00:00: mouth [place] PAIN) 650 00 every 8 Medical mg CR (eight) Branch tablet hours as needed for Pain. acetaminoph 2021-0 Yes [id number] 650mg Take 1 [facility] en (TYLENOL 8-29 tablet by ity of ARTHRITIS 00:00: mouth [place] PAIN) 650 00 every 8 Medical mg CR (eight) Branch tablet hours as needed for Pain. acetaminoph 2021-0 Yes [id number] 650mg Take 1 [facility] en (TYLENOL 8-29 tablet by ity of ARTHRITIS 00:00: mouth [place] PAIN) 650 00 every 8 Medical mg CR (eight) Branch tablet hours as needed for Pain. acetaminoph 0 Yes [id number] 650mg Take 1 [facility] en (TYLENOL 8-29 tablet by ity of ARTHRITIS 00:00: mouth [place] PAIN) 650 00 every 8 Medical mg CR (eight) Branch tablet hours as needed for Pain. acetaminoph 0 Yes [id number] 650mg Take 1 [facility] en (TYLENOL 8-29 tablet by ity of ARTHRITIS 00:00: mouth [place] PAIN) 650 00 every 8 Medical mg CR (eight) Branch tablet hours as needed for Pain. acetaminoph 0 Yes [id number] 650mg Take 1 [facility] en (TYLENOL 8-29 tablet by ity of ARTHRITIS 00:00: mouth [place] PAIN) 650 00 every 8 Medical mg CR (eight) Branch tablet hours as needed for Pain. acetaminoph 0 Yes [id number] 650mg Take 1 [facility] en (TYLENOL 8-29 tablet by ity of ARTHRITIS 00:00: mouth [place] PAIN) 650 00 every 8 Medical mg CR (eight) Branch tablet hours as needed for Pain. acetaminoph 0 Yes [id number] 650mg Take 1 [facility] en (TYLENOL 8-29 tablet by ity of ARTHRITIS 00:00: mouth [place] PAIN) 650 00 every 8 Medical mg CR (eight) Branch tablet hours as needed for Pain. acetaminoph 0 Yes [id number] 650mg Take 1 [facility] en (TYLENOL 8-29 tablet by ity of ARTHRITIS 00:00: mouth [place] PAIN) 650 00 every 8 Medical mg CR (eight) Branch tablet hours as needed for Pain. acetaminoph 2021-0 Yes [id number] 650mg Take 1 [facility] en (TYLENOL 8-29 tablet by ity of ARTHRITIS 00:00: mouth [place] PAIN) 650 00 every 8 Medical mg CR (eight) Branch tablet hours as needed for Pain. acetaminoph 2021-0 Yes [id number] 650mg Take 1 Univers en (TYLENOL 8-29 tablet by ity of ARTHRITIS 00:00: mouth [place] PAIN) 650 00 every 8 Medical mg CR (eight) Branch tablet hours as needed for Pain. acetaminoph 0 Yes [id number] 650mg Take 1 [facility] en (TYLENOL 8-29 tablet by ity of ARTHRITIS 00:00: mouth [place] PAIN) 650 00 every 8 Medical mg CR (eight) Branch tablet hours as needed for Pain. acetaminoph 0 Yes [id number] 650mg Take 1 [facility] en (TYLENOL 8-29 tablet by ity of ARTHRITIS 00:00: mouth [place] PAIN) 650 00 every 8 Medical mg CR (eight) Branch tablet hours as needed for Pain. acetaminoph 2021- No [id number] 650mg Take 1 Univers en (TYLENOL 8-29 11-26 tablet by it y of ARTHRITIS 00:00: 00:00 mouth [place] PAIN) 650 00 :00 every 8 Medical mg CR (eight) Branch tablet hours as needed for Pain. ondansetron 2021- No [id number] 4mg Take 1 [facility] 4 mg 8-29 10-18 tablet by ity of disintegrat 00:00: 00:00 [place] tablet 00 :00 every 8 Medica l (eight) Branch hours as needed for Nausea and Vomiting (N/V). ketorolac 2021- No [id number] 10mg Take 1 [facility] 10 mg 8-29 10-18 tablet by ity of tablet 00:00: 00:00 mouth [place] 00 :00 every 6 Medical (six) Branch hours as needed for Pain (scale 4-6) or Pain (scale 7-10). metaxalone 2021- No [id number] 800mg Take 1 [facility] (SKELAXIN) 8-29 10-18 tablet by ity of 800 mg 00:00: 00:00 mouth in [place] tablet 00 :00 the Medical morning Branch and 1 tablet at noon and 1 tablet in the evening. ondansetron 2021-2021- No [id number] 4mg Take 1 [facility] 4 mg 8-29 10-18 tablet by ity of disintegrat 00:00: 00:00 [place] tablet 00 :00 every 8 Medica l (eight) Branch hours as needed for Nausea and Vomiting (N/V). ketorolac 2022-0 2021- No [id number] 10mg Take 1 [facility] 10 mg 8-29 10-18 tablet by ity of tablet 00:00: 00:00 mouth [place] 00 :00 every 6 Medical (six) Branch hours as needed for Pain (scale 4-6) or Pain (scale 7-10). metaxalone 2021-0 2021- No [id number] 800mg Take 1 [facility] (SKELAXIN) 8-29 10-18 tablet by ity of 800 mg 00:00: 00:00 mouth in [place] tablet 00 :00 the Medical morning Branch and 1 tablet at noon and 1 tablet in the evening. ondansetron 2021-0 2021- No [id number] 4mg Take 1 [facility] 4 mg 8-29 10-18 tablet by ity of disintegrat 00:00: 00:00 [place] tablet 00 :00 every 8 Medica l (eight) Branch hours as needed for Nausea and Vomiting (N/V). ketorolac 2021-0 2021- No [id number] 10mg Take 1 [facility] 10 mg 8-29 10-18 tablet by ity of tablet 00:00: 00:00 mouth [place] 00 :00 every 6 Medical (six) Branch hours as needed for Pain (scale 4-6) or Pain (scale 7-10). metaxalone 2021-0 2021- No [id number] 800mg Take 1 [facility] (SKELAXIN) 8-29 10-18 tablet by ity of 800 mg 00:00: 00:00 mouth in [place] tablet 00 :00 the Medical morning Branch and 1 tablet at noon and 1 tablet in the evening. ondansetron 2-0 2021- No [id number] 4mg Take 1 [facility] 4 mg 8-29 10-18 tablet by ity of disintegrat 00:00: 00:00 [place] tablet 00 :00 every 8 Medica l (eight) Branch hours as needed for Nausea and Vomiting (N/V). ketorolac 2022-0 2021- No [id number] 10mg Take 1 [facility] 10 mg 8-29 10-18 tablet by ity of tablet 00:00: 00:00 mouth [place] 00 :00 every 6 Medical (six) Branch hours as needed for Pain (scale 4-6) or Pain (scale 7-10). metaxalone 2-0 2021- No [id number] 800mg Take 1 [facility] (SKELAXIN) 8-29 10-18 [...] mouth. ity of supp. no.8 15:08: 00:00 [place] (TRAZAMINE 46 :00 Medical ORAL) Branch diphenhydrA [...] Yes Univers INHALE 8-02 ity of 13:03: [place] [address] Medical Branch diphenhydrA Yes 25mg Take 25 mg Univers MINE 25 mg 8-02 by mouth ity o f capsule 13:03: every 6 [place] [address] (six) Medical hours as Branch needed for Allergies. carbamazepi Yes Take by Uni vers ne 8-02 mouth. ity of (TEGRETOL 13:03: [place] ORAL) 04 Medical Branch citalopram Yes Take by Univ ers hydrobromid 8-02 mouth. ity of e 13:03: [place] (CITALOPRAM 04 Medical ORAL) Branch ALBUTEROL Yes Univers INHALE 8 ity of 13:03: [place] [address] Medical Branch diphenhydrA Yes 25mg Take 25 mg [facility] MINE 25 mg 12-12 by mouth ity o f capsule 13:03: every 6 [place] [address] (six) Medical hours as Branch needed for Allergies. carbamazepi Yes Take by Uni vers ne 8-02 mouth. ity of (TEGRETOL 13:03: [place] ORAL) Medical Branch citalopram Yes Take by Univ ers hydrobromid 8-02 mouth. ity of e 13:03: [place] (CITALOPRAM 04 Medical ORAL) Branch ALBUTEROL Yes Univers INHALE 12-12 ity of 13:03: [place] [address] Medical Branch diphenhydrA Yes 25mg Take 25 mg [facility] MINE 25 mg 802 by mouth ity o f capsule 13:03: every 6 [place] [address] (six) Medical hours as Branch needed for Allergies. carbamazepi Yes Take by [facility] vers ne 8-02 mouth. ity of (TEGRETOL 13:03: [place] ORAL) 04 Medical Branch citalopram Yes Take by Univ ers hydrobromid 8-02 mouth. ity of e 13:03: [place] (CITALOPRAM 04 Medical ORAL) Branch ALBUTEROL Yes [facility] INHALE 8 ity of 13:03: [place] [address] Medical Branch diphenhydrA Yes 25mg Take 25 mg [facility] MINE 25 mg 802 by mouth ity o f capsule 13:03: every 6 [place] 04 (six) Medical hours as Branch needed for Allergies. carbamazepi 0 Yes Take by Uni vers ne 8-02 mouth. ity of (TEGRETOL 13:03: [place] ORAL) 04 Medical Branch citalopram Yes Take by Univ ers hydrobromid 8-02 mouth. ity of e 13:03: [place] (CITALOPRAM 04 Medical ORAL) Branch ALBUTEROL 0 Yes [facility] INHALE 8-02 ity of 13:03: [place] [address] Medical Branch diphenhydrA 0 Yes 25mg Take 25 mg [facility] MINE 25 mg 802 by mouth ity o f capsule 13:03: every 6 [place] [address] (six) Medical hours as Branch needed for Allergies. carbamazepi 0 Yes Take by Uni vers ne 8-02 mouth. ity of (TEGRETOL 13:03: [place] ORAL) 04 Medical Branch citalopram Yes Take by Univ ers hydrobromid 8-02 mouth. ity of e 13:03: [place] (CITALOPRAM 04 Medical ORAL) Branch ALBUTEROL 0 Yes Univers INHALE 8 ity of 13:03: [place] [address] Medical Branch diphenhydrA 0 Yes 25mg Take 25 mg [facility] MINE 25 mg 8 by mouth ity o f capsule 13:03: every 6 [place] [address] (six) Medical hours as Branch needed for Allergies. carbamazepi 0 Yes Take by Uni vers ne 8-02 mouth. ity of (TEGRETOL 13:03: [place] ORAL) 04 Medical Branch citalopram Yes Take by Univ ers hydrobromid 8-02 mouth. ity of e 13:03: [place] (CITALOPRAM 04 Medical ORAL) Branch ALBUTEROL 0 Yes [facility] INHALE 8-02 ity of 13:03: [place] [address] Medical Branch diphenhydrA 0 Yes 25mg Take 25 mg [facility] MINE 25 mg 802 by mouth ity o f capsule 13:03: every 6 [place] [address] (six) Medical hours as Branch needed for Allergies. carbamazepi 0 Yes Take by Uni vers ne 8-02 mouth. ity of (TEGRETOL 13:03: [place] ORAL) 04 Medical Branch citalopram 0 Yes Take by Univ ers hydrobromid 8-02 mouth. ity of e 13:03: [place] (CITALOPRAM 04 Medical ORAL) Branch ALBUTEROL Yes [facility] INHALE 12-12 ity of 13:03: [place] Medical Branch diphenhydrA Yes 25mg Take 25 mg [facility] MINE 25 mg 02 by mouth ity o f capsule 13:03: every 6 [place] [address] (six) Medical hours as Branch needed for Allergies. carbamazepi Yes Take by Uni vers ne 8-02 mouth. ity of (TEGRETOL 13:03: [place] ORAL) Medical Branch citalopram Yes Take by Univ ers hydrobromid 8-02 mouth. ity of e 13:03: [place] (CITALOPRAM 04 Medical ORAL) Branch ALBUTEROL Yes [facility] INHALE 12-12 ity of 13:03: [place] [address] Medical Branch diphenhydrA Yes 25mg Take 25 mg [facility] MINE 25 mg 12-12 by mouth ity o f capsule 13:03: every 6 [place] [address] (six) Medical hours as Branch needed for Allergies. carbamazepi Yes Take by Uni vers ne 8-02 mouth. ity of (TEGRETOL 13:03: [place] ORAL) Medical Branch citalopram Yes Take by Univ ers hydrobromid 8-02 mouth. ity of e 13:03: [place] (CITALOPRAM 04 Medical ORAL) Branch ALBUTEROL Yes [facility] INHALE 12-12 ity of 13:03: [place] [address] Medical Branch diphenhydrA Yes 25mg Take 25 mg [facility] MINE 25 mg 02 by mouth ity o f capsule 13:03: every 6 [place] [address] (six) Medical hours as Branch needed for Allergies. carbamazepi Yes Take by Uni vers ne 8-02 mouth. ity of (TEGRETOL 13:03: [place] ORAL) 04 Medical Branch citalopram Yes Take by Univ ers hydrobromid 8-02 mouth. ity of e 13:03: [place] (CITALOPRAM 04 Medical ORAL) Branch ALBUTEROL Yes [facility] INHALE 8 ity of 13:03: [place] [address] Medical Branch ALBUTEROL Yes [facility] INHALE 8-02 ity of 13:03: [address] ALBUTEROL Yes [facility] INHALE 8-02 ity of 13:03: [address] ALBUTEROL Yes [facility] INHALE 8-02 ity of 13:03: [address] ALBUTEROL Yes [facility] INHALE 8-02 ity of 13:03: [address] ALBUTEROL Yes [facility] INHALE 8-02 ity of 13:03: [address] ALBUTEROL Yes Univers INHALE 8-02 ity of 13:03: [address] ALBUTEROL Yes Univers INHALE 8-02 ity of 13:03: [address] ALBUTEROL Yes [facility] INHALE 8-02 ity of 13:03: [address] ALBUTEROL Yes Univers INHALE 8-02 ity of 13:03: [address] ALBUTEROL Yes Univers INHALE 8-02 ity of 13:03: [address] ALBUTEROL Yes Univers INHALE 8-02 ity of 13:03: [address] ALBUTEROL Yes Univers INHALE 8-02 ity of 13:03: [address] ALBUTEROL Yes Univers INHALE 8-02 ity of 13:03: [address] ALBUTEROL Yes Univers INHALE 8-02 ity of 13:03: [address] traZODone Yes [id number] 50mg Take 1 U nivers 50 mg 8-02 tablet by ity of tablet 00:00: mouth at [place] 00 bedtime. [facility] SERTraline Yes [id number] 50mg Take 1 Univers (ZOLOFT) 50 8-02 tablet by ity [facility] mg tablet 00:00: [facility] Branch traZODone Yes [id number] 50mg Take 1 U nivers 50 mg 8-02 tablet by ity of tablet 00:00: mouth at [place] 00 bedtime. [facility] SERTraline Yes [id number] 50mg Take 1 Univers (ZOLOFT) 50 8-02 tablet by ity of mg tablet 00:00: mouth [place] 00 the Medical morning. Branch traZODone 2021-0 Yes [id number] 50mg Take 1 U nivers 50 mg 8-02 tablet by ity of tablet 00:00: mouth at [place] 00 bedtime. Medical Branch SERTraline 2021-0 Yes 50mg Take 1 Univers (ZOLOFT) 50 8-02 tablet by ity of mg tablet 00:00: mouth [place] 00 the Medical morning. Branch traZODone 2021-0 Yes [id number] 50mg Take 1 U nivers 50 mg 8-02 tablet by ity of tablet 00:00: mouth at [place] 00 bedtime. Medical Branch SERTraline 0 Yes 50mg Take 1 Univers (ZOLOFT) 50 8-02 tablet by ity of mg tablet 00:00: mouth [place] 00 the Medical morning. Branch traZODone 2021-0 Yes [id number] 50mg Take 1 U nivers 50 mg 8-02 tablet by ity of tablet 00:00: mouth at [place] 00 bedtime. Medical Branch SERTraline 2021-0 Yes 50mg Take 1 Univers (ZOLOFT) 50 8-02 tablet by ity of mg tablet 00:00: mouth [place] 00 the Medical morning. Branch traZODone 2021-0 Yes [id number] 50mg Take 1 U nivers 50 mg 8-02 tablet by ity of tablet 00:00: mouth at [place] 00 bedtime. Medical Branch SERTraline 2021-0 Yes 50mg Take 1 Univers (ZOLOFT) 50 8-02 tablet by ity of mg tablet 00:00: mouth [place] 00 the Medical morning. Branch traZODone 2021-0 Yes [id number] 50mg Take 1 U nivers 50 mg 8-02 tablet by ity of tablet 00:00: mouth at [place] 00 bedtime. Medical Branch SERTraline 2021-0 Yes 50mg Take 1 Univers (ZOLOFT) 50 8-02 tablet by ity of mg tablet 00:00: mouth in [place] 00 the Medical morning. Branch traZODone 2021-0 Yes [id number] 50mg Take 1 U nivers 50 mg 8-02 tablet by ity of tablet 00:00: mouth at [place] 00 bedtime. Medical Branch SERTraline 0 Yes [id number] 50mg Take 1 Univers (ZOLOFT) 50 8-02 tablet by ity of mg tablet 00:00: mouth [place] 00 the Medical morning. Branch traZODone 0 Yes [id number] 50mg Take 1 U nivers 50 mg 8-02 tablet by ity of tablet 00:00: mouth at [place] 00 bedtime. Medical Branch SERTraline 0 Yes [id number] 50mg Take 1 Univers (ZOLOFT) 50 8-02 tablet by ity of mg tablet 00:00: mouth in [place] 00 the Medical morning. Branch traZODone 0 Yes [id number] 50mg Take 1 U nivers 50 mg 8-02 tablet by ity of tablet 00:00: mouth at [place] 00 bedtime. Medical Branch SERTraline 0 Yes [id number] 50mg Take 1 Univers (ZOLOFT) 50 8-02 tablet by ity of mg tablet 00:00: mouth in [place] 00 the Medical morning. Branch traZODone 0 Yes [id number] 50mg Take 1 U nivers 50 mg 8-02 tablet by ity of tablet 00:00: mouth at [place] 00 bedtime. Medical Branch SERTraline Yes [id number] 50mg Take 1 Univers (ZOLOFT) 50 8-02 tablet by ity of mg tablet 00:00: mouth [place] 00 the Medical morning. Branch traZODone 2021- No [id number] 50mg Take 1 Univers 50 mg 8-02 10-18 tablet by ity of tablet 00:00: 00:00 mouth at [place] 00 :00 bedtime. Medical Branch SERTraline 0 2021- No [id number] 50mg Take 1 Univers (ZOLOFT) 50 8-02 10-18 tablet by it y of mg tablet 00:00: 00:00 mouth in [place] as 00 :00 the Medical morning. Branch traZODone 2021- No [id number] 50mg Take 1 Univers 50 mg 8-02 10-18 tablet by ity of tablet 00:00: 00:00 mouth at [place] 00 :00 bedtime. Medical Branch SERTraline 2021- No [id number] 50mg Take 1 Univers (ZOLOFT) 50 8- 10-18 tablet by it y of mg tablet 00:00: 00:00 mouth in [facility] as 00 :00 the Medical morning. Branch traZODone 2021- No [id number] 50mg Take 1 Univers 50 mg 8- 10-18 tablet by ity of tablet 00:00: 00:00 mouth at [place] 00 :00 bedtime. Medical Branch SERTraline 2021- No [id number] 50mg Take 1 Univers (ZOLOFT) 50 8- 10-18 tablet by it y of mg tablet 00:00: 00:00 mouth in [facility] as 00 :00 the Medical morning. Branch traZODone 2021- No [id number] 50mg Take 1 Univers 50 mg 8- 10-18 tablet by ity of tablet 00:00: 00:00 mouth at [place] 00 :00 bedtime. Medical Branch SERTraline 2021- No [id number] 50mg Take 1 Univers (ZOLOFT) 50 8- 10-18 tablet by it y of mg tablet 00:00: 00:00 mouth in [facility] as 00 :00 the Medical morning. Branch sulfamethox 2021- No [id number] 1{tbl} Take 1 Univers azole-trime -06 20-06 tablet by it y of thoprim 00:00: 04:59 mouth in [place] (BACTRIM 00 :00 the Medical DS) 800-160 morning Branc h mg per and 1 tablet tablet in the evening. Do all this for 3 days. ibuprofen Yes [id number] 600mg Take 1 Univers 600 mg 7-15 tablet by ity of tablet 00:00: mouth [place] [address] every 6 Medical (six) Branch hours as needed for Pain (scale 4-6). ibuprofen 2021-0 Yes [id number] 600mg Take 1 Univers 600 mg 7-15 tablet by ity of tablet 00:00: mouth [place] [address] every 6 Medical (six) Branch hours as needed for Pain (scale 4-6). ibuprofen 2021-0 Yes [id number] 600mg Take 1 [facility] 600 mg 7-15 tablet by ity of tablet 00:00: mouth [place] 00 every 6 Medical (six) Branch hours as needed for Pain (scale 4-6). ibuprofen 2022-0 Yes [id number] 600mg Take 1 Univers 600 mg 7-15 tablet by ity of tablet 00:00: mouth [place] 00 every 6 Medical (six) Branch hours as needed for Pain (scale 4-6). ibuprofen 2022-0 Yes [id number] 600mg Take 1 [facility] 600 mg 7-15 tablet by ity of tablet 00:00: mouth [place] 00 every 6 Medical (six) Branch hours as needed for Pain (scale 4-6). ibuprofen 2022-0 Yes [id number] 600mg Take 1 [facility] 600 mg 7-15 tablet by ity of tablet 00:00: mouth [place] 00 every 6 Medical (six) Branch hours as needed for Pain (scale 4-6). ibuprofen 2022-0 Yes [id number] 600mg Take 1 [facility] 600 mg 7-15 tablet by ity of tablet 00:00: mouth [place] 00 every 6 Medical (six) Branch hours as needed for Pain (scale 4-6). ibuprofen 2-0 Yes [id number] 600mg Take 1 [facility] 600 mg 7-15 tablet by ity of tablet 00:00: mouth [place] 00 every 6 Medical (six) Branch hours as needed for Pain (scale 4-6). ibuprofen 2022-0 Yes [id number] 600mg Take 1 [facility] 600 mg 7-15 tablet by ity of tablet 00:00: mouth [place] 00 every 6 Medical (six) Branch hours as needed for Pain (scale 4-6). ibuprofen 2022-0 Yes [id number] 600mg Take 1 [facility] 600 mg 7-15 tablet by ity of tablet 00:00: mouth [place] 00 every 6 Medical (six) Branch hours as needed for Pain (scale 4-6). ibuprofen 2022-0 Yes [id number] 600mg Take 1 [facility] 600 mg 7-15 tablet by ity of tablet 00:00: mouth [place] 00 every 6 Medical (six) Branch hours as needed for Pain (scale 4-6). ibuprofen 2022-0 2022- No [id number] 600mg Take 1 [facility] 600 mg 7-15 10-18 tablet by ity of tablet 00:00: 00:00 mouth [place] 00 :00 every 6 Medical (six) Branch hours as needed for Pain (scale 4-6). ibuprofen 2021-0 2021- No [id number] 600mg Take 1 [facility] 600 mg 7-15 10-18 tablet by ity of tablet 00:00: 00:00 mouth [place] 00 :00 every 6 Medical (six) Branch hours as needed for Pain (scale 4-6). ibuprofen 2021-0 2021- No [id number] 600mg Take 1 [facility] 600 mg 7-15 10-18 tablet by ity of tablet 00:00: 00:00 mouth [place] 00 :00 every 6 Medical (six) Branch hours as needed for Pain (scale 4-6). ibuprofen 2021-0 2021- No [id number] 600mg Take 1 Univers 600 mg 7-15 [...] Indication s: acute pain bromphenira 2021-0 Yes [id number] 5mL Take 5 mL Univers mine-pseudo 7-09 by mouth 4 it y of ephedrine-D 00:00: (four) [place] M (BROMFED 00 times Medical DM) 2-30-10 daily as Bran ch mg/5 mL needed for syrup Congestion /Allergies or Cough. naproxen 2021-0 Yes [id number] 500mg Take 1 U nivers 500 mg 7-09 tablet by ity of tablet 00:00: mouth [place] 00 every 8 Medical (eight) Branch hours as needed for Pain (scale 4-6). cyclobenzap 2021-0 Yes [id number] 10mg Take 1 Univers rine 10 mg 7-09 tablet by ity of tablet 00:00: mouth at [place] 00 bedtime as Medical needed for Branch Muscle Spasms. bromphenira 2021-0 Yes [id number] 5mL Take 5 mL Univers mine-pseudo 7-09 by mouth 4 it y of ephedrine-D 00:00: (four) [place] M (BROMFED 00 times Medical DM) 2-30-10 daily as Bran ch mg/5 mL needed for syrup Congestion /Allergies or Cough. naproxen 2022-0 Yes [id number] 500mg Take 1 U nivers 500 mg 7-09 tablet by ity of tablet 00:00: mouth [place] 00 every 8 Medical (eight) Branch hours as needed for Pain (scale 4-6). cyclobenzap 2022-0 Yes [id number] 10mg Take 1 Univers rine 10 mg 7-09 tablet by ity of tablet 00:00: mouth at [place] 00 bedtime as Medical needed for Branch Muscle Spasms. bromphenira 2022-0 Yes [id number] 5mL Take 5 mL Univers mine-pseudo 7-09 by mouth 4 it y of ephedrine-D 00:00: (four) [place] M (BROMFED 00 times Medical DM) 2-30-10 daily as Bran ch mg/5 mL needed for syrup Congestion /Allergies or Cough. naproxen 2-0 Yes [id number] 500mg Take 1 U nivers 500 mg 7-09 tablet by ity of tablet 00:00: mouth [place] 00 every 8 Medical (eight) Branch hours as needed for Pain (scale 4-6). cyclobenzap 2022-0 Yes [id number] 10mg Take 1 Univers rine 10 mg 7-09 tablet by ity of tablet 00:00: mouth at [place] 00 bedtime as Medical needed for Branch Muscle Spasms. bromphenira 2022-0 Yes [id number] 5mL Take 5 mL Univers mine-pseudo 7-09 by mouth 4 it y of ephedrine-D 00:00: (four) [place] M (BROMFED 00 times Medical DM) 2-30-10 daily as Bran ch mg/5 mL needed for syrup Congestion /Allergies or Cough. naproxen 2022-0 Yes [id number] 500mg Take 1 U nivers 500 mg 7-09 tablet by ity of tablet 00:00: mouth [place] 00 every 8 Medical (eight) Branch hours as needed for Pain (scale 4-6). cyclobenzap 2022-0 Yes [id number] 10mg Take 1 Univers rine 10 mg 7-09 tablet by ity of tablet 00:00: mouth at [place] 00 bedtime as Medical needed for Branch Muscle Spasms. bromphenira 2021-0 Yes [id number] 5mL Take 5 mL Univers mine-pseudo 7-09 by mouth 4 it y of ephedrine-D 00:00: (four) [place] M (BROMFED 00 times Medical DM) 2-30-10 daily as Bran ch mg/5 mL needed for syrup Congestion /Allergies or Cough. naproxen 2021-0 Yes [id number] 500mg Take 1 U nivers 500 mg 7-09 tablet by ity of tablet 00:00: mouth [place] 00 every 8 Medical (eight) Branch hours as needed for Pain (scale 4-6). cyclobenzap 2021-0 Yes [id number] 10mg Take 1 Univers rine 10 mg 7-09 tablet by ity of tablet 00:00: mouth at [place] 00 bedtime as Medical needed for Branch Muscle Spasms. bromphenira 2021-0 Yes [id number] 5mL Take 5 mL Univers mine-pseudo 7-09 by mouth 4 it y of ephedrine-D 00:00: (four) [place] M (BROMFED 00 times Medical DM) 2-30-10 daily as Bran ch mg/5 mL needed for syrup Congestion /Allergies or Cough. naproxen 2021-0 Yes [id number] 500mg Take 1 U nivers 500 mg 7-09 tablet by ity of tablet 00:00: mouth [place] 00 every 8 Medical (eight) Branch hours as needed for Pain (scale 4-6). cyclobenzap 2021-0 Yes [id number] 10mg Take 1 Univers rine 10 mg 7-09 tablet by ity of tablet 00:00: mouth at [place] 00 bedtime as Medical needed for Branch Muscle Spasms. bromphenira 2021-0 Yes [id number] 5mL Take 5 mL Univers mine-pseudo 7-09 by mouth 4 it y of ephedrine-D 00:00: (four) [place] M (BROMFED 00 times Medical DM) 2-30-10 daily as Bran ch mg/5 mL needed for syrup Congestion /Allergies or Cough. naproxen 2-0 Yes [id number] 500mg Take 1 U nivers 500 mg 7-09 tablet by ity of tablet 00:00: mouth [place] 00 every 8 Medical (eight) Branch hours as needed for Pain (scale 4-6). cyclobenzap 2021-0 Yes [id number] 10mg Take 1 Univers rine 10 mg 7-09 tablet by ity of tablet 00:00: mouth at [place] 00 bedtime as Medical needed for Branch Muscle Spasms. bromphenira 2021-0 Yes [id number] 5mL Take 5 mL Univers mine-pseudo 7-09 by mouth 4 it y of ephedrine-D 00:00: (four) [place] M (BROMFED 00 times Medical DM) 2-30-10 daily as Bran ch mg/5 mL needed for syrup Congestion /Allergies or Cough. naproxen 2021-0 Yes [id number] 500mg Take 1 U nivers 500 mg 7-09 tablet by ity of tablet 00:00: mouth [place] 00 every 8 Medical (eight) Branch hours as needed for Pain (scale 4-6). cyclobenzap 2021-0 Yes [id number] 10mg Take 1 Univers rine 10 mg 7-09 tablet by ity of tablet 00:00: mouth at [place] 00 bedtime as Medical needed for Branch Muscle Spasms. bromphenira 2021-0 Yes [id number] 5mL Take 5 mL Univers mine-pseudo 7-09 by mouth 4 it y of ephedrine-D 00:00: (four) [place] M (BROMFED 00 times Medical DM) 2-30-10 daily as Bran ch mg/5 mL needed for syrup Congestion /Allergies or Cough. naproxen 2021-0 Yes [id number] 500mg Take 1 U nivers 500 mg 7-09 tablet by ity of tablet 00:00: mouth [place] 00 every 8 Medical (eight) Branch hours as needed for Pain (scale 4-6). cyclobenzap 2021-0 Yes [id number] 10mg Take 1 Univers rine 10 mg 7-09 tablet by ity of tablet 00:00: mouth at [place] 00 bedtime as Medical needed for Branch Muscle Spasms. bromphenira 2-0 Yes [id number] 5mL Take 5 mL Univers mine-pseudo 7-09 by mouth 4 it y of ephedrine-D 00:00: (four) [place] M (BROMFED 00 times Medical DM) 2-30-10 daily as Bran ch mg/5 mL needed for syrup Congestion /Allergies or Cough. naproxen 2022-0 Yes [id number] 500mg Take 1 U nivers 500 mg 7-09 tablet by ity of tablet 00:00: mouth [place] 00 every 8 Medical (eight) Branch hours as needed for Pain (scale 4-6). cyclobenzap 2021-0 Yes [id number] 10mg Take 1 Univers rine 10 mg 7-09 tablet by ity of tablet 00:00: mouth at [place] 00 bedtime as Medical needed for Branch Muscle Spasms. bromphenira 2021-0 Yes [id number] 5mL Take 5 mL Univers mine-pseudo 7-09 by mouth 4 it y of ephedrine-D 00:00: (four) [place] M (BROMFED 00 times Medical DM) 2-30-10 daily as Bran ch mg/5 mL needed for syrup Congestion /Allergies or Cough. naproxen 2021-0 Yes [id number] 500mg Take 1 U nivers 500 mg 7-09 tablet by ity of tablet 00:00: mouth [place] 00 every 8 Medical (eight) Branch hours as needed for Pain (scale 4-6). cyclobenzap 2021-0 Yes [id number] 10mg Take 1 Univers rine 10 mg 7-09 tablet by ity of tablet 00:00: mouth at [place] 00 bedtime as Medical needed for Branch Muscle Spasms. bromphenira 2021-0 Yes [id number] 5mL Take 5 mL Univers mine-pseudo 7-09 by mouth 4 it y of ephedrine-D 00:00: (four) [place] M (BROMFED 00 times Medical DM) 2-30-10 daily as Bran ch mg/5 mL needed for syrup Congestion /Allergies or Cough. bromphenira 2021-0 Yes [id number] 5mL Take 5 mL Univers mine-pseudo 7-09 by mouth 4 it y of ephedrine-D 00:00: (four) [place] M (BROMFED 00 times Medical DM) 2-30-10 daily as Bran ch mg/5 mL needed for syrup Congestion /Allergies or Cough. bromphenira 2021-0 Yes [id number] 5mL Take 5 mL Univers mine-pseudo 7-09 by mouth 4 it y of ephedrine-D 00:00: (four) [place] M (BROMFED 00 times Medical DM) 2-30-10 daily as Bran ch mg/5 mL needed for syrup Congestion /Allergies or Cough. bromphenira 2022-0 Yes [id number] 5mL Take 5 mL Univers mine-pseudo 7-09 by mouth 4 it y of ephedrine-D 00:00: (four) [place] M (BROMFED 00 times Medical DM) 2-30-10 daily as Bran ch mg/5 mL needed for syrup Congestion /Allergies or Cough. bromphenira 2-0 Yes [id number] 5mL Take 5 mL Univers mine-pseudo 7-09 by mouth 4 it y of ephedrine-D 00:00: (four) [place] M (BROMFED 00 times Medical DM) 2-30-10 daily as Bran ch mg/5 mL needed for syrup Congestion /Allergies or Cough. bromphenira 2021-0 Yes [id number] 5mL Take 5 mL Univers mine-pseudo 7-09 by mouth 4 it y of ephedrine-D 00:00: (four) [place] M (BROMFED 00 times Medical DM) 2-30-10 daily as Bran ch mg/5 mL needed for syrup Congestion /Allergies or Cough. bromphenira 2021-0 Yes [id number] 5mL Take 5 mL Univers mine-pseudo 7-09 by mouth 4 it y of ephedrine-D 00:00: (four) [place] M (BROMFED 00 times Medical DM) 2-30-10 daily as Bran ch mg/5 mL needed for syrup Congestion /Allergies or Cough. bromphenira 2021-0 Yes [id number] 5mL Take 5 mL Univers mine-pseudo 7-09 by mouth 4 it y of ephedrine-D 00:00: (four) [place] (BROMFED 00 times Medical DM) 2-30-10 daily as Bran ch mg/5 mL needed for syrup Congestion /Allergies or Cough. bromphenira 2-0 Yes [id number] 5mL Take 5 mL [facility] mine-pseudo 7-09 by mouth 4 it y of ephedrine-D 00:00: (four) [place] (BROMFED 00 times Medical DM) 2-30-10 daily as Bran ch mg/5 mL needed for syrup Congestion /Allergies or Cough. bromphenira 2022-0 Yes [id number] 5mL Take 5 mL [facility] mine-pseudo 7-09 by mouth 4 it y of ephedrine-D 00:00: (four) [place] (BROMFED 00 times Medical DM) 2-30-10 daily as Bran ch mg/5 mL needed for syrup Congestion /Allergies or Cough. bromphenira 2021-0 Yes [id number] 5mL Take 5 mL [facility] mine-pseudo 7-09 by mouth 4 it y of ephedrine-D 00:00: (four) [place] (BROMFED 00 times Medical DM) 2-30-10 daily as Bran ch mg/5 mL needed for syrup Congestion /Allergies or Cough. bromphenira 2021-0 Yes [id number] 5mL Take 5 mL [facility] mine-pseudo 7-09 by mouth 4 it y of ephedrine-D 00:00: (four) [place] (BROMFED 00 times Medical DM) 2-30-10 daily as Bran ch mg/5 mL needed for syrup Congestion /Allergies or Cough. bromphenira 2021-0 Yes [id number] 5mL Take 5 mL [facility] mine-pseudo 7-09 by mouth 4 it y of ephedrine-D 00:00: (four) [place] (BROMFED 00 times Medical DM) 2-30-10 daily as Bran ch mg/5 mL needed for syrup Congestion /Allergies or Cough. bromphenira 2021-0 Yes [id number] 5mL Take 5 mL [facility] mine-pseudo 7-09 by mouth 4 it y of ephedrine-D 00:00: (four) [place] (BROMFED 00 times Medical DM) 2-30-10 daily as Bran ch mg/5 mL needed for syrup Congestion /Allergies or Cough. bromphenira 2021- No [id number] 5mL Take 5 mL [facility] mine-pseudo 7-09 11-12 by mouth 4 i ty of ephedrine-D 00:00: 00:00 (four) [place] M (BROMFED 00 :00 times Medical DM) 2-30-10 daily as Bran ch mg/5 mL needed for syrup Congestion /Allergies or Cough. naproxen 2021- No [id number] 500mg Take 1 [facility] 500 mg 11-18 10-18 tablet by ity of tablet 00:00: 00:00 mouth [place] 00 :00 every 8 Medical (eight) Branch hours as needed for Pain (scale 4-6). cyclobenzap No [id number] 10mg Take 1 Univers rine 10 mg 7- 10-18 tablet by ity of tablet 00:00: 00:00 mouth at [place] 00 :00 bedtime as Medical needed for Branch Muscle Spasms. naproxen 2021- No [id number] 500mg Take 1 [facility] 500 mg 7- 10-18 tablet by ity of tablet 00:00: 00:00 mouth [place] 00 :00 every 8 Medical (eight) Branch hours as needed for Pain (scale 4-6). cyclobenzap 2021- No [id number] 10mg Take 1 [facility] rine 10 mg 7- 10-18 tablet by ity of tablet 00:00: 00:00 mouth at [place] 00 :00 bedtime as Medical needed for Branch Muscle Spasms. naproxen 2021- No [id number] 500mg Take 1 [facility] 500 mg 7- 10-18 tablet by ity of tablet 00:00: 00:00 mouth [place] 00 :00 every 8 Medical (eight) Branch hours as needed for Pain (scale 4-6). cyclobenzap 2021- No [id number] 10mg Take 1 [facility] rine 10 mg 7- 10-18 tablet by ity of tablet 00:00: 00:00 mouth at [place] 00 :00 bedtime as Medical needed for Branch Muscle Spasms. naproxen No [id number] 500mg Take 1 [facility] 500 mg 7- 10-18 tablet by ity of tablet 00:00: 00:00 mouth [place] 00 :00 every 8 Medical (eight) Branch hours as needed for Pain (scale 4-6). cyclobenzap No [id number] 10mg Take 1 [facility] rine 10 mg 7- 10-18 tablet by ity of tablet 00:00: 00:00 mouth at [place] 00 :00 bedtime as Medical needed for Branch Muscle Spasms. ibuprofen Yes [id number] 605mg Take 30.25 Univers 100 mg/5 mL 6-15 mL by ity of oral 00:00: mouth [place] 00 every 6 Medica l (six) Branch hours as needed for Pain (scale 4-6) or Temp > 38.5 C. ibuprofen 2021-0 Yes [id number] 605mg Take 30.25 Univers 100 mg/5 mL 6-15 mL by ity of oral 00:00: mouth [place] suspension 00 every 6 Medica l (six) Branch hours as needed for Pain (scale 4-6) or Temp > 38.5 C. ibuprofen 2021-0 Yes [id number] 605mg Take 30.25 [facility] 100 mg/5 mL 6-15 mL by ity of oral 00:00: mouth [place] suspension 00 every 6 Medica l (six) Branch hours as needed for Pain (scale 4-6) or Temp > 38.5 C. ibuprofen 2021-0 Yes [id number] 605mg Take 30.25 [facility] 100 mg/5 mL 6-15 mL by ity of oral 00:00: mouth [place] suspension 00 every 6 Medica l (six) Branch hours as needed for Pain (scale 4-6) or Temp > 38.5 C. ibuprofen 2021-0 Yes [id number] 605mg Take 30.25 [facility] 100 mg/5 mL 6-15 mL by ity of oral 00:00: mouth [place] suspension 00 every 6 Medica l (six) Branch hours as needed for Pain (scale 4-6) or Temp > 38.5 C. ibuprofen 2021-0 Yes [id number] 605mg Take 30.25 [facility] 100 mg/5 mL 6-15 mL by ity of oral 00:00: mouth [place] suspension 00 every 6 Medica l (six) Branch hours as needed for Pain (scale 4-6) or Temp > 38.5 C. ibuprofen 2021-0 Yes [id number] 605mg Take 30.25 [facility] 100 mg/5 mL 6-15 mL by ity of oral 00:00: mouth [place] suspension 00 every 6 Medica l (six) Branch hours as needed for Pain (scale 4-6) or Temp > 38.5 C. ibuprofen 2021-0 Yes [id number] 605mg Take 30.25 [facility] 100 mg/5 mL 6-15 mL by ity of oral 00:00: mouth [place] suspension 00 every 6 Medica l (six) Branch hours as needed for Pain (scale 4-6) or Temp > 38.5 C. ibuprofen 2021-0 Yes [id number] 605mg Take 30.25 [facility] 100 mg/5 mL 6-15 mL by ity of oral 00:00: mouth [place] suspension 00 every 6 Medica l (six) Branch hours as needed for Pain (scale 4-6) or Temp > 38.5 C. ibuprofen 0 Yes [id number] 605mg Take 30.25 [facility] 100 mg/5 mL 6-15 mL by ity of oral 00:00: mouth [place] suspension 00 every 6 Medica l (six) Branch hours as needed for Pain (scale 4-6) or Temp > 38.5 C. ibuprofen 0 Yes [id number] 605mg Take 30.25 [facility] 100 mg/5 mL 6-15 mL by ity of oral 00:00: mouth [place] suspension 00 every 6 Medica l (six) Branch hours as needed for Pain (scale 4-6) or Temp > 38.5 C. ibuprofen 2021- No [id number] 605mg Take 30.25 [facility] 100 mg/5 mL 6-15 10-18 mL by ity of oral 00:00: 00:00 mouth [place] suspension 00 :00 every 6 Medica l (six) Branch hours as needed for Pain (scale 4-6) or Temp > 38.5 C. ibuprofen 2021- No [id number] 605mg Take 30.25 [facility] 100 mg/5 mL 6-15 10-18 mL by ity of oral 00:00: 00:00 mouth [place] suspension 00 :00 every 6 Medica l (six) Branch hours as needed for Pain (scale 4-6) or Temp > 38.5 C. ibuprofen 2021- No [id number] 605mg Take 30.25 [facility] 100 mg/5 mL 6-15 10-18 mL by ity of oral 00:00: 00:00 mouth [place] suspension 00 :00 every 6 Medica l (six) Branch hours as needed for Pain (scale 4-6) or Temp > 38.5 C. ibuprofen 2021- No [id number] 605mg Take 30.25 [facility] 100 mg/5 mL 6-15 10-18 mL by ity of oral 00:00: 00:00 mouth [place] suspension 00 :00 every 6 Medica l (six) Branch hours as needed for Pain (scale 4-6) or Temp > 38.5 C. acetaminoph 0 2021- No [id number] 608mg Take 19 mL [facility] en 160 mg/5 6-15 08-02 by mouth ity of mL liquid 00:00: 00:00 [place] 6 [place] 00 :[place] (six) Medical hours as Branch needed for Fever. DULoxetine 0 Yes [facility] 60 mg 5-27 ity of capsule 00:00: [place] [address] Medical Branch DULoxetine 2021-0 Yes [facility] 60 mg 5-27 ity of capsule 00:00: [place] [address] Medical Branch DULoxetine 2021-0 Yes [facility] 60 mg 5-27 ity of capsule 00:00: [place] [address] [facility] Branch DULoxetine 2021-0 Yes [facility] 60 mg 5-27 ity of capsule 00:00: [place] [address] [facility] Branch DULoxetine 2021-0 Yes [facility] 60 mg 5-27 ity of capsule 00:00: [place] [address] [facility] Branch DULoxetine 2021-0 Yes [facility] 60 mg 5-27 ity of capsule 00:00: [place] [address] [facility] Branch DULoxetine 2021-0 Yes [facility] 60 mg 5-27 ity of capsule 00:00: [place] [address] [facility] Branch DULoxetine 2021-0 Yes [facility] 60 mg 5-27 ity of capsule 00:00: [place] [address] [facility] Branch DULoxetine 2021-0 Yes [facility] 60 mg 5-27 ity of capsule 00:00: [place] [address] Medical Branch DULoxetine 2021-0 Yes [facility] 60 mg 5-27 ity of capsule 00:00: [place] [address] [facility] Branch DULoxetine 2021-0 Yes [facility] 60 mg 5-27 ity of capsule 00:00: [place] 00 Medical Branch DULoxetine 2021-0 2- No Univer s 60 mg 5-27 10-18 ity of capsule 00:00: 00:00 [place] 00 :00 Medical Branch DULoxetine 2-0 2- No Univer s 60 mg 5-27 10-18 ity of capsule 00:00: 00:00 [place] 00 :00 Medical Branch DULoxetine 2-0 2- No Univer s 60 mg 5-27 10-18 ity of capsule 00:00: 00:00 [place] 00 :00 Medical Branch DULoxetine 2-0 2- No Univer s 60 mg 5-27 10-18 ity of capsule 00:00: 00:00 [place] 00 :00 Medical Branch traZODone 2021-0 2021- No Univers 50 mg 5-27 08 ity of tablet 00:00: 00:00 [place] 00 :00 Medical Branch mometasone 2021-0 Yes [id number] 1{spray Use 1 Univers 50 5-19 } [place] in ity of mcg/actuati 00:00: each [place] on nasal 00 nostril 2 Medica l spray (two) Branch times daily. mometasone 2021-0 Yes [id number] 1{spray Use 1 [facility] 50 5-19 } [place] in ity of mcg/actuati 00:00: each [place] on nasal 00 nostril 2 Medica l spray (two) Branch times daily. mometasone 2021-0 Yes [id number] 1{spray Use 1 [facility] 50 5-19 } [place] in ity of mcg/actuati 00:00: each [place] on nasal 00 nostril 2 Medica l spray (two) Branch times daily. mometasone 2021-0 Yes [id number] 1{spray Use 1 [facility] 50 5-19 } [place] in ity of mcg/actuati 00:00: each [place] on nasal 00 nostril 2 Medica l spray (two) Branch times daily. mometasone 2021-0 Yes [id number] 1{spray Use 1 [facility] 50 5-19 } [place] in ity of mcg/actuati 00:00: each [place] on nasal 00 nostril 2 Medica l spray (two) Branch times daily. mometasone 2021-0 Yes [id number] 1{spray Use 1 [facility] 50 5-19 } [place] in ity of mcg/actuati 00:00: each [place] on nasal 00 nostril 2 Medica l spray (two) Branch times daily. mometasone 2021-0 Yes [id number] 1{spray Use 1 [facility] 50 5-19 } [place] in ity of mcg/actuati 00:00: each [place] on nasal 00 nostril 2 Medica l spray (two) Branch times daily. mometasone 2021-0 Yes [id number] 1{spray Use 1 [facility] 50 5-19 } [place] in ity of mcg/actuati 00:00: each [place] on nasal 00 nostril 2 Medica l spray (two) Branch times daily. mometasone 2021-0 Yes [id number] 1{spray Use 1 [facility] 50 5-19 } [place] in ity of mcg/actuati 00:00: each [place] on nasal 00 nostril 2 Medica l spray (two) Branch times daily. mometasone Yes [id number] 1{spray Use 1 [facility] 50 5-19 } [place] in ity of mcg/actuati 00:00: each [place] on nasal 00 nostril 2 Medica l spray (two) Branch times daily. mometasone Yes [id number] 1{spray Use 1 [facility] 50 5-19 } [place] in ity of mcg/actuati 00:00: each [place] on nasal 00 nostril 2 Medica l spray (two) Branch times daily. mometasone 2021- No [id number] 1{spray Use 1 [facility] 50 5-19 10-18 } [place] in ity of mcg/actuati 00:00: 00:00 each [place] on nasal 00 :00 nostril 2 Medica l spray (two) Branch times daily. mometasone 2021- No [id number] 1{spray Use 1 [facility] 50 5-19 10-18 } [place] in ity of mcg/actuati 00:00: 00:00 each [place] on nasal 00 :00 nostril 2 Medica l spray (two) Branch times daily. mometasone 2021- No [id number] 1{spray Use 1 [facility] 50 5-19 10-18 } [place] in ity of mcg/actuati 00:00: 00:00 each [place] on nasal 00 :00 nostril 2 Medica l spray (two) Branch times daily. mometasone 2021- No [id number] 1{spray Use 1 [facility] 50 5-19 10-18 } [place] in ity of mcg/actuati 00:00: 00:00 each [place] on nasal 00 :00 nostril 2 Medica l spray (two) Branch times daily. cetirizine Yes [id number] 10mg Take 1 U nivers (ZYRTEC) 10 5-16 tablet by ity of mg tablet 00:00: mouth [place] 00 daily. Medical Branch cetirizine Yes [id number] 10mg Take 1 U nivers (ZYRTEC) 10 5-16 tablet by ity of mg tablet 00:00: mouth [place] 00 daily. Medical Branch cetirizine Yes [id number] 10mg Take 1 U nivers (ZYRTEC) 10 5-16 tablet by ity of mg tablet 00:00: mouth [place] 00 daily. Medical Branch cetirizine Yes [id number] 10mg Take 1 U nivers (ZYRTEC) 10 5-16 tablet by ity of mg tablet 00:00: mouth [place] 00 daily. Medical Branch cetirizine Yes [id number] 10mg Take 1 U nivers (ZYRTEC) 10 5-16 tablet by ity of mg tablet 00:00: mouth [place] 00 daily. [facility] Branch cetirizine Yes [id number] 10mg Take 1 U nivers (ZYRTEC) 10 5-16 tablet by ity of mg tablet 00:00: mouth [place] 00 daily. [facility] Branch cetirizine Yes [id number] 10mg Take 1 U nivers (ZYRTEC) 10 5-16 tablet by ity of mg tablet 00:00: mouth [place] 00 daily. Medical Branch cetirizine Yes [id number] 10mg Take 1 U nivers (ZYRTEC) 10 5-16 tablet by ity of mg tablet 00:00: mouth [place] 00 daily. [facility] Branch cetirizine Yes [id number] 10mg Take 1 U nivers (ZYRTEC) 10 5-16 tablet by ity of mg tablet 00:00: mouth [place] 00 daily. Medical Branch cetirizine Yes [id number] 10mg Take 1 U nivers (ZYRTEC) 10 5-16 tablet by ity of mg tablet 00:00: mouth [place] 00 daily. [facility] Branch cetirizine Yes [id number] 10mg Take 1 U nivers (ZYRTEC) 10 5-16 tablet by ity of mg tablet 00:00: mouth [place] 00 daily. [facility] Branch cetirizine 2021- No [id number] 10mg Take 1 [facility] (ZYRTEC) 10 5-16 10-18 tablet by it y of mg tablet 00:00: 00:00 mouth [place] 00 :00 daily. Medical Branch cetirizine 2021- No [id number] 10mg Take 1 [facility] (ZYRTEC) 10 5-16 10-18 tablet by it y of mg tablet 00:00: 00:00 mouth [place] 00 :00 daily. Medical Branch cetirizine 2021- No [id number] 10mg Take 1 [facility] (ZYRTEC) 10 5-16 10-18 tablet by it y of mg tablet 00:00: 00:00 mouth [place] 00 :00 daily. Medical Branch cetirizine 2021- No [id number] 10mg Take 1 [facility] (ZYRTEC) 10 5-16 10-18 tablet by it y of mg tablet 00:00: 00:00 mouth [place] 00 :00 daily. Medical Branch DULoxetine 2022-0 Yes [facility] 30 mg 5-09 ity of capsule 00:00: [place] 00 Medical Branch gabapentin 2022-0 Yes [facility] 300 mg 5-09 ity of capsule 00:00: [place] 00 Medical Branch ondansetron 2022-0 Yes Univer s 4 mg tablet 5-09 ity of 00:00: [place] 00 Medical Branch DULoxetine 2022-0 Yes [facility] 30 mg 5-09 ity of capsule 00:00: [place] 00 Medical Branch gabapentin 2022-0 Yes [facility] 300 mg 5-09 ity of capsule 00:00: [place] 00 Medical Branch ondansetron 2022-0 Yes Univer s 4 mg tablet 5-09 ity of 00:00: [place] 00 Medical Branch DULoxetine 2022-0 Yes [facility] 30 mg 5-09 ity of capsule 00:00: [place] 00 Medical Branch gabapentin 2022-0 Yes [facility] 300 mg 5-09 ity of capsule 00:00: [place] 00 Medical Branch ondansetron 2022-0 Yes Univer s 4 mg tablet 5-09 ity of 00:00: [place] 00 Medical Branch DULoxetine 2022-0 Yes [facility] 30 mg 5-09 ity of capsule 00:00: [place] 00 Medical Branch gabapentin 2022-0 Yes [facility] 300 mg 5-09 ity of capsule 00:00: [place] 00 Medical Branch ondansetron 2022-0 Yes Univer s 4 mg tablet 5-09 ity of 00:00: [place] 00 Medical Branch DULoxetine 2022-0 Yes [facility] 30 mg 5-09 ity of capsule 00:00: [place] 00 Medical Branch gabapentin 2022-0 Yes [facility] 300 mg 5-09 ity of capsule 00:00: [place] 00 Medical Branch ondansetron 2022-0 Yes Univer s 4 mg tablet 5-09 ity of 00:00: [place] 00 Medical Branch DULoxetine 2022-0 Yes [facility] 30 mg 5-09 ity of capsule 00:00: [place] 00 Medical Branch gabapentin 2022-0 Yes [facility] 300 mg 5-09 ity of capsule 00:00: [place] 00 Medical Branch ondansetron 2022-0 Yes Univer s 4 mg tablet 5-09 ity of 00:00: [place] 00 Medical Branch DULoxetine 2022-0 Yes [facility] 30 mg 5-09 ity of capsule 00:00: [place] [address] Medical Branch gabapentin 2022-0 Yes [facility] 300 mg 5-09 ity of capsule 00:00: [place] [facility] ondansetron 2022-0 Yes Univer s 4 mg tablet 5-09 ity of 00:00: [place] [address] Medical Branch DULoxetine 2022-0 Yes [facility] 30 mg 5-09 ity of capsule 00:00: [place] 00 Medical Branch gabapentin 2022-0 Yes [facility] 300 mg 5-09 ity of capsule 00:00: [place] [address] Medical Branch ondansetron 2022-0 Yes Univer s 4 mg tablet 5-09 ity of 00:00: [place] [address] Medical Branch DULoxetine 2022-0 Yes [facility] 30 mg 5-09 ity of capsule 00:00: [place] [address] Medical Branch gabapentin 2022-0 Yes [facility] 300 mg 5-09 ity of capsule 00:00: [place] 00 Medical Branch ondansetron 2022-0 Yes Univer s 4 mg tablet 5-09 ity of 00:00: [place] 00 Medical Branch DULoxetine 2022-0 Yes [facility] 30 mg 5-09 ity of capsule 00:00: [place] [address] Medical Branch gabapentin 2022-0 Yes [facility] 300 mg 5-09 ity of capsule 00:00: [place] 00 Medical Branch ondansetron 2022-0 Yes Univer s 4 mg tablet 5-09 ity of 00:00: [place] [address] Medical Branch DULoxetine 2022-0 Yes [facility] 30 mg 5-09 ity of capsule 00:00: [place] [address] Medical Branch gabapentin 2022-0 Yes [facility] 300 mg 5-09 ity of capsule 00:00: [place] 00 Medical Branch ondansetron 2022-0 Yes Univer s 4 mg tablet 09-18 ity of 00:00: [place] 00 Medical Branch DULoxetine 2022-0 2- No Univer s 30 mg 09-18 ity of capsule 00:00: 00:00 [place] 00 :00 Medical Branch gabapentin 2022-0 2022- No Univer s 300 mg 09-18 ity of capsule 00:00: 00:00 [place] 00 :00 Medical Branch ondansetron 2022-0 2022- No Unive rs 4 mg tablet 09-18 ity of 00:00: 00:00 [place] 00 :00 Medical Branch DULoxetine 2022-0 2- No Univer s 30 mg 09-18 ity of capsule 00:00: 00:00 [place] 00 :00 Medical Branch gabapentin 2022-0 2- No Univer s 300 mg 09-18 ity of capsule 00:00: 00:00 [place] 00 :00 Medical Branch ondansetron 2022-0 2- No Unive rs 4 mg tablet 09-18 ity of 00:00: 00:00 [place] 00 :00 Medical Branch DULoxetine 2022-0 2- No Univer s 30 mg 09-18 ity of capsule 00:00: 00:00 [place] 00 :00 Medical Branch gabapentin 2022-0 2- No Univer s 300 mg 09-18 ity of capsule 00:00: 00:00 [place] 00 :00 Medical Branch ondansetron 2022-0 2- No Unive rs 4 mg tablet 09-18 ity of 00:00: 00:00 [place] 00 :00 Medical Branch DULoxetine 2022-0 2022- No Univer s 30 mg 09-18 ity of capsule 00:00: 00:00 [place] 00 :00 Medical Branch gabapentin 2022-0 2022- No Univer s 300 mg 09-18 ity of capsule 00:00: 00:00 [place] 00 :00 Medical Branch ondansetron 2022-0 2022- No Unive rs 4 mg tablet 09-18 ity of 00:00: 00:00 [place] 00 :00 Medical Branch amLODIPine 2022-0 Yes Univers 5 mg tablet 09-01 ity of 00:00: [place] 00 Medical Branch amLODIPine 2022-0 Yes 5mg Take 5 mg Un sushant 5 mg tablet 4-22 by mouth. ity of 00:00: [place] [facility] amLODIPine 2022-0 Yes Univers 5 mg tablet 4-22 ity of 00:00: [place] [facility] amLODIPine 2022-0 Yes 5mg Take 5 mg Un sushant 5 mg tablet 4-22 by mouth. ity of 00:00: [place] [facility] amLODIPine 2022-0 Yes Univers 5 mg tablet 4-22 ity of 00:00: [place] [facility] amLODIPine 2022-0 Yes 5mg Take 5 mg Un sushant 5 mg tablet 4-22 by mouth. ity of 00:00: [place] [facility] amLODIPine 2022-0 Yes Univers 5 mg tablet 4-22 ity of 00:00: [place] [facility] amLODIPine 2022-0 Yes 5mg Take 5 mg Un sushant 5 mg tablet 4-22 by mouth. ity of 00:00: [place] [facility] amLODIPine 2022-0 Yes Univers 5 mg tablet 4-22 ity of 00:00: [place] [facility] amLODIPine 2022-0 Yes 5mg Take 5 mg Un sushant 5 mg tablet 4-22 by mouth. ity of 00:00: [place] [facility] amLODIPine 2022-0 Yes Univers 5 mg tablet 4-22 ity of 00:00: [place] [facility] amLODIPine 2022-0 Yes 5mg Take 5 mg Un sushant 5 mg tablet 4-22 by mouth. ity of 00:00: [place] [facility] amLODIPine 2022-0 Yes Univers 5 mg tablet 4-22 ity of 00:00: [place] [facility] amLODIPine 2022-0 Yes 5mg Take 5 mg Un sushant 5 mg tablet 4-22 by mouth. ity of 00:00: [place] [facility] amLODIPine 2022-0 Yes Univers 5 mg tablet 4-22 ity of 00:00: [place] [facility] amLODIPine 2022-0 Yes 5mg Take 5 mg Un sushant 5 mg tablet 4-22 by mouth. ity of 00:00: [place] [facility] amLODIPine 2022-0 Yes Univers 5 mg tablet 4-22 ity of 00:00: [place] [facility] amLODIPine 2022-0 Yes 5mg Take 5 mg Un sushant 5 mg tablet 4-22 by mouth. ity of 00:00: [place] 00 Medical Branch amLODIPine 2022-0 Yes Univers 5 mg tablet 09-01 ity of 00:00: [place] 00 Medical Branch amLODIPine 2022-0 Yes 5mg Take 5 mg Un sushant 5 mg tablet 22 by mouth. ity of 00:00: [place] 00 Medical Branch amLODIPine 2022-0 Yes Univers 5 mg tablet 09-01 ity of 00:00: [place] 00 Medical Branch amLODIPine 2022-0 Yes 5mg Take 5 mg Un sushant 5 mg tablet 09-01 by mouth. ity of 00:00: [place] 00 Medical Branch amLODIPine 2022-0 2022- No Univer s 5 mg tablet 09-01 ity of 00:00: 00:00 [place] 00 :00 Medical Branch amLODIPine 2022-0 2022- No 5mg Take 5 mg U nivers 5 mg tablet 09-01 by mouth. it y of 00:00: 00:00 [place] 00 :00 Medical Branch amLODIPine 2022-0 2022- No Univer s 5 mg tablet 09-01 ity of 00:00: 00:00 [place] 00 :00 Medical Branch amLODIPine 2022-0 2022- No 5mg Take 5 mg U nivers 5 mg tablet 09-01 by mouth. it y of 00:00: 00:00 [place] 00 :00 Medical Branch amLODIPine 2022-0 2022- No Univer s 5 mg tablet 09-01 ity of 00:00: 00:00 [place] 00 :00 Medical Branch amLODIPine 2022-0 2022- No 5mg Take 5 mg U nivers 5 mg tablet 09-01 by mouth. it y of 00:00: 00:00 [place] 00 :00 Medical Branch amLODIPine 2022-0 2022- No Univer s 5 mg tablet 09-01 ity of 00:00: 00:00 [place] 00 :00 Medical Branch amLODIPine 2022-0 2022- No 5mg Take 5 mg U nivers 5 mg tablet 09-0118 by mouth. it y of 00:00: 00:00 [place] 00 :00 Medical Branch buPROPion 2022-0 Yes Univers XL 150 mg -20 ity of 24 hr 00:00: [place] tablet 00 Medical Branch buPROPion Yes Univers [...] ity of 24 hr 00:00: [place] tablet [facility] Branch buPROPion Yes Univers XL 150 mg 4-20 ity of 24 hr 00:00: [place] tablet [facility] Branch buPROPion Yes Univers XL 150 mg 4-20 ity of 24 hr 00:00: [place] tablet [facility] Branch buPROPion Yes Univers XL 150 mg 4-20 ity of 24 hr 00:00: [place] tablet [facility] Branch buPROPion 2022- No 150mg Take 150 Un sushant XL 150 mg 4-20 04-21 mg by ity of 24 hr 00:00: 04:59 mouth. [place] tablet 00 :00 [facility] Branch buPROPion 2022- No 150mg Take 150 Un sushant XL 150 mg 4-20 04-21 mg by ity of 24 hr 00:00: 04:59 mouth. [place] tablet 00 :00 [facility] Branch buPROPion 2022- No 150mg Take 150 Un sushant XL 150 mg 4-20 04-21 mg by ity of 24 hr 00:00: 04:59 mouth. [place] tablet 00 :00 [facility] Branch buPROPion 2022- No 150mg Take 150 Un sushant XL 150 mg 4-20 04-21 mg by ity of 24 hr 00:00: 04:59 mouth. [place] tablet 00 :00 [facility] Branch buPROPion 2022- No 150mg Take [...] buPROPion 2021- No 150mg Take 150 Un sushnat XL 150 mg 4-20 10-18 mg by [...] tablet by ity o f 00:00: mouth [place] (two) Medical times Branch daily. carvediloL 2020-05 Yes 25mg Take 1 Unive rs 25 mg 2-30 tablet by ity of tablet 00:00: mouth [place] (two) Medical times Branch daily with meals. losartan 50 2020-05 Yes 50mg Take 1 Univ ers mg tablet 2-30 tablet by ity o f 00:00: mouth [place] (two) Medical times Branch daily. carvediloL 2020-05- No 25mg Take 1 Univ ers 25 mg 2-30 10-18 tablet by ity of tablet 00:00: 00:00 mouth 2 [place] 00 :00 (two) Medical times Branch daily with meals. losartan 50 2020-05- No 50mg Take 1 Uni vers mg tablet 2-30 10-18 tablet by ity of 00:00: 00:00 mouth 2 [place] 00 :00 (two) Medical times Branch daily. carvediloL 2020-05- No 25mg Take 1 Univ ers 25 mg 2-30 10-18 tablet by ity of tablet 00:00: 00:[address] [place] [address] 00 :00 (two) Medical times Branch daily with meals. losartan 50 2020-05- No 50mg Take 1 Uni vers mg tablet 2-30 10-18 tablet by ity of 00:00: 00:00 mouth 2 [place] 00 :00 (two) Medical times Branch daily. carvediloL 2020-2021- No 25mg Take 1 Univ ers 25 mg 2-30 10-18 tablet by ity of tablet 00:00: 00:00 mouth 2 [place] 00 :00 (two) Medical times Branch daily with meals. losartan 50 2020-2021- No 50mg Take 1 Uni vers mg tablet 2-30 10-18 tablet by ity of 00:00: 00:00 mouth 2 [place] 00 :00 (two) Medical times Branch daily. [...] Medical 20 mg QPM Branch methocarbam Yes [employer] of 500mg Take 1 Univers oL 4-08 [...] Ordered Filled Immunization Date Status Comments [facility] e Immunization Name Name Influenza Virus [...] Universit y of Vaccine [facility], 00:00:00 [place] Me dical Preserv and ABX Branch Free [...] Universit y of Vaccine [facility] IM, 00:00:00 [place] Me dical Preserv and ABX Branch Free 6 MO-64 YRS Influenza Virus 2021-06-11 Completed Universit y of Vaccine 00:00:00 [facility] Influenza Virus 2021-06-11 Completed Universit y of Vaccine 00:00:00 [facility] Influenza Virus 2021-06-11 Completed Universit y of Vaccine 00:00:00 [facility] Influenza Virus 2021-06-11 Completed Universit y of Vaccine 00:00:00 [facility] Influenza Virus 2021-06-11 Completed Universit y of Vaccine 00:00:00 [facility] Influenza Virus 2021-06-11 Completed Universit y of Vaccine 00:00:00 [facility] Influenza Virus 2021-06-11 Completed Universit y of Vaccine 00:00:00 [facility] Influenza Virus 2021-06-11 Completed Universit y of Vaccine 00:00:00 [facility] Influenza Virus 2021-06-11 Completed Universit y of Vaccine 00:00:00 [facility] Influenza Virus 2021-06-11 Completed Universit y of Vaccine 00:00:00 [facility] Influenza Virus 2021-06-11 Completed Universit y of Vaccine 00:00:00 [facility] Influenza Virus 2021-06-11 Completed Universit y of Vaccine 00:00:00 [facility] Branch Influenza Virus 2021-06-11 Completed Universit y of Vaccine 00:00:00 [facility] Branch Influenza Virus 2021-06-11 Completed Universit y of Vaccine 00:00:00 [facility] Branch Influenza Virus 2021-06-11 Completed Universit y of Vaccine 00:00:00 [facility] Branch Influenza Virus 2021-06-11 Completed Universit y of Vaccine 00:00:00 [facility] Influenza Virus 2021-06-11 Completed Universit y of Vaccine 00:00:00 [facility] Branch Influenza Virus 2021-06-11 Completed Universit y of Vaccine 00:00:00 [facility] Branch Influenza Virus 2021-06-11 Completed Universit y of Vaccine 00:00:00 [facility] Influenza Virus 2021-06-11 Completed Universit y of Vaccine 00:00:00 [facility] Branch Influenza Virus 2021-06-11 Completed Universit y of Vaccine 00:00:00 [facility] Influenza Virus 2021-06-11 Completed Universit y of Vaccine 00:00:00 [facility] Influenza Virus 2021-06-11 Completed Universit y of Vaccine 00:00:00 [facility] Branch Influenza Virus 2021-06-11 Completed Universit y of Vaccine 00:00:00 [facility] Branch Influenza Virus 2021-06-11 Completed Universit y of Vaccine 00:00:00 [facility] Branch Influenza Virus 2021-06-11 Completed Universit y of Vaccine 00:00:00 [facility] Branch Influenza Virus 2021-06-11 Completed Universit y of Vaccine 00:00:00 [facility] Branch Influenza Virus 2021-06-11 Completed Universit y of Vaccine 00:00:00 [facility] Branch Influenza Virus 2021-06-11 Completed Universit y of Vaccine 00:00:00 [place] [facility] Branch Influenza Virus 2021-06-11 Completed Universit y of Vaccine 00:00:00 [facility] Branch Influenza Virus 2021-06-11 Completed Universit y of Vaccine 00:00:00 [facility] Branch Influenza Virus 2021-06-11 Completed Universit y of Vaccine 00:00:00 [place] [facility] Branch Influenza Virus 2021-06-11 Completed Universit y of Vaccine 00:00:00 [facility] Influenza Virus 2021-06-11 Completed Universit y of Vaccine 00:00:00 [facility] Influenza Virus 2021-06-11 Completed Universit y of Vaccine 00:00:00 [facility] Influenza Virus 2021-06-11 Completed Universit y of Vaccine 00:00:00 [facility] Influenza Virus 2021-06-11 Completed Universit y of Vaccine 00:00:00 [facility] Influenza Virus 2021-06-11 Completed Universit y of Vaccine 00:00:00 [facility] Influenza Virus 2021-06-11 Completed Universit y of Vaccine 00:00:00 [facility] Influenza Virus 2020-05-19 Completed Universit y of Vaccine 00:00:00 [facility] Influenza Virus 2020-05-19 Completed Universit y of Vaccine 00:00:00 [facility] Influenza Virus 2020-05-19 Completed Universit y of Vaccine 00:00:00 [facility] Influenza Virus 2020-05-19 Completed Universit y of Vaccine 00:00:00 [place] [facility] Influenza Virus 2020-05-19 Completed Universit y of Vaccine 00:00:00 [facility] Influenza Virus 2020-05-19 Completed Universit y of Vaccine 00:00:00 [facility] Influenza Virus 2020-05-19 Completed Universit y of Vaccine 00:00:00 [facility] Influenza Virus 2020-05-19 Completed Universit y of Vaccine 00:00:00 [facility] Influenza Virus 2020-05-19 Completed Universit y of Vaccine 00:00:00 [facility] Influenza Virus 2020-05-19 Completed Universit y of Vaccine 00:00:00 [facility] Influenza Virus 2020-05-19 Completed Universit y of Vaccine 00:00:00 [facility] Influenza Virus 2020-05-19 Completed [facility]it [facility] of Vaccine 00:00:00 [place] [facility] Influenza Virus 2020-05-19 Completed [facility]it y of Vaccine 00:00:00 [place] [facility] Influenza Virus 2020-05-19 Completed [facility]it y of Vaccine 00:00:00 [place] [facility] Influenza Virus 2020-05-19 Completed [facility]it y of Vaccine 00:00:00 [place] [facility] Influenza Virus 2020-05-19 Completed [facility]it y of Vaccine 00:00:00 [facility] Influenza Virus 2020-05-19 Completed Universit y of Vaccine 00:00:00 [facility] Influenza Virus 2020-05-19 Completed Universit y of Vaccine 00:00:00 [facility] Influenza Virus 2020-05-19 Completed Universit y of Vaccine 00:00:00 [facility] Influenza Virus 2020-05-19 Completed Universit y of Vaccine 00:00:00 [facility] Influenza Virus 2020-05-19 Completed Universit y of Vaccine 00:00:00 [facility] Influenza Virus 2020-05-19 Completed Universit y of Vaccine 00:00:00 [facility] Influenza Virus 2020-05-19 Completed Universit y of Vaccine 00:00:00 [facility] Influenza Virus 2020-05-19 Completed Universit y of Vaccine 00:00:00 [facility] Influenza Virus 2020-05-19 Completed Universit y of Vaccine 00:00:00 [facility] Influenza Virus 2020-05-19 Completed Universit y of Vaccine 00:00:00 [facility] Influenza Virus 2020-05-19 Completed Universit y of Vaccine 00:00:00 [facility] Influenza Virus 2020-05-19 Completed Universit y of Vaccine 00:00:00 [facility] Influenza Virus 2020-05-19 Completed [facility]it y of Vaccine 00:00:00 [facility] Influenza Virus 2020-05-19 Completed Universit y of Vaccine 00:00:00 [facility] Influenza Virus 2020-05-19 Completed Universit y of Vaccine 00:00:00 [facility] Influenza Virus 2020-05-19 Completed [facility]it y of Vaccine 00:00:00 [facility] Influenza Virus 2020-05-19 Completed [facility]it y of Vaccine 00:00:00 [facility] Influenza Virus 2020-05-19 Completed [facility]it y of Vaccine 00:00:00 [facility] Influenza Virus 2020-05-19 Completed [facility] of Vaccine 00:00:00 [place] [facility] Influenza Virus 2020-05-19 Completed Universit y of Vaccine 00:00:00 [facility] Influenza Virus 2020-05-19 Completed Universit y of Vaccine 00:00:00 [facility] Influenza Virus 2020-05-19 Completed [facility]it y of Vaccine 00:00:00 [facility] Influenza Virus 2020-05-19 Completed [facility]it y of Vaccine 00:00:00 [facility] Influenza Virus 2020-05-19 Completed Universit y of Vaccine 00:00:00 [facility] Influenza Virus 2020-05-16 Completed Universit [...] 2019-05-21 Completed University of VACCINE 00:00:00 [facility] TDAP (ADACEL) 2019-05-21 Completed University of VACCINE 00:00:00 [facility] TDAP (ADACEL) 2019-05-21 Completed University of VACCINE 00:00:00 [facility] TDAP (ADACEL) 2019-05-21 Completed University of VACCINE 00:00:00 [facility] TDAP (ADACEL) 2019-05-21 Completed University of VACCINE 00:00:00 [facility] TDAP (ADACEL) 2019-05-21 Completed University of VACCINE 00:00:00 [facility] TDAP (ADACEL) 2019-05-21 Completed University of VACCINE 00:00:00 [facility] TDAP (ADACEL) 2019-05-21 Completed University of VACCINE 00:00:00 [facility] TDAP (ADACEL) 2019-05-21 Completed University of VACCINE 00:00:00 [facility] TDAP (ADACEL) 2019-05-21 Completed University of VACCINE 00:00:00 [facility] TDAP (ADACEL) 2019-05-21 Completed University of VACCINE 00:00:00 [facility] TDAP (ADACEL) 2019-05-21 Completed University of VACCINE 00:00:00 [facility] TDAP (ADACEL) 2019-05-21 Completed University of VACCINE 00:00:00 [facility] TDAP (ADACEL) 2019-05-21 Completed University of VACCINE 00:00:00 [facility] TDAP (ADACEL) 2019-05-21 Completed University of VACCINE 00:00:00 [facility] TDAP (ADACEL) 2019-05-21 Completed [facility] of VACCINE 00:00:00 [facility] TDAP (ADACEL) 2019-05-21 Completed University of VACCINE 00:00:00 [facility] TDAP (ADACEL) 2019-05-21 Completed University of VACCINE 00:00:00 [facility] TDAP (ADACEL) 2019-05-21 Completed [facility] of VACCINE 00:00:00 [facility] TDAP (ADACEL) 2019-05-21 Completed [facility] of VACCINE 00:00:00 [facility] TDAP (ADACEL) 2019-05-21 Completed University of VACCINE 00:00:00 [facility] TDAP (ADACEL) 2019-05-21 Completed University of VACCINE 00:00:00 [facility] TDAP (ADACEL) 2019-05-21 Completed University of VACCINE 00:00:00 [facility] TDAP (ADACEL) 2019-05-21 Completed University of VACCINE 00:00:00 [facility] TDAP (ADACEL) 2019-05-21 Completed University of VACCINE 00:00:00 [facility] TDAP (ADACEL) 2019-05-21 Completed University of VACCINE 00:00:00 [facility] TDAP (ADACEL) 2019-05-21 Completed University of VACCINE 00:00:00 [facility] TDAP (ADACEL) 2019-05-21 Completed University of VACCINE 00:00:00 [facility] TDAP (ADACEL) 2019-05-21 Completed University of VACCINE 00:00:00 [facility] TDAP (ADACEL) 2019-05-21 Completed University of VACCINE 00:00:00 [facility] TDAP (ADACEL) 2019-05-21 Completed University of VACCINE 00:00:00 [facility] TDAP (ADACEL) 2019-05-21 Completed University of VACCINE 00:00:00 [facility] TDAP (ADACEL) 2019-05-21 Completed University of VACCINE 00:00:00 [facility] TDAP (ADACEL) 2019-05-21 Completed University of VACCINE 00:00:00 [facility] TDAP (ADACEL) 2019-05-21 Completed University of VACCINE 00:00:00 [facility] TDAP (ADACEL) 2019-05-21 Completed University of VACCINE 00:00:00 [facility] TDAP (ADACEL) 2019-05-21 Completed University of VACCINE 00:00:00 [facility] TDAP (ADACEL) 2019-05-21 Completed University of VACCINE 00:00:00 [facility] TDAP (ADACEL) 2019-05-21 Completed University of VACCINE 00:00:00 [facility] TDAP (ADACEL) 2019-05-21 Completed University of VACCINE 00:00:00 [facility] Influenza Virus 2019-02-06 Completed Universit [...] y of Vaccine Quad .5 mL 00:00:00 [facility] Influenza Virus 2019-02-06 Completed [facility]it y of Vaccine Quad .5 mL 00:00:00 [facility] Influenza Virus 2019-02-06 Completed [facility]it y of Vaccine Quad .5 mL 00:00:00 [facility] Influenza Virus 2019-02-06 Completed [facility]it y of Vaccine Quad .5 mL 00:00:00 [facility] Influenza Virus 2019-02-06 Completed [facility]it y of Vaccine Quad .5 mL 00:00:00 [facility] Influenza Virus 2019-02-06 Completed [facility]it y of Vaccine Quad .5 mL 00:00:00 [facility] Influenza Virus 2019-02-06 [...] y of Vaccine Quad .5 mL 00:00:00 [facility] Influenza Virus [...] y of Vaccine Quad .5 mL 00:00:00 [facility] Influenza Virus 2019-02-06 Completed [facility]it y of Vaccine Quad .5 mL 00:00:00 [place] [facility] Influenza Virus 2019-02-06 Completed [facility]it y of Vaccine Quad .5 mL 00:00:00 [place] [facility] Influenza Virus 2019-02-06 Completed [facility]it y of Vaccine Quad .5 mL 00:00:00 [facility] Influenza Virus 2019-02-06 Completed Universit y of Vaccine Quad .5 mL 00:00:00 [facility] 6+ MO Branch Influenza Virus 2019-02-06 Completed Universit y of Vaccine Quad .5 mL 00:00:00 [facility] Influenza Virus 2019-02-06 Completed [facility]it y of Vaccine Quad .5 mL 00:00:00 [facility] Influenza Virus 2019-02-06 Completed [facility]it y of Vaccine Quad .5 mL 00:00:00 [facility] Influenza Virus 2019-02-06 Completed [facility]it y of Vaccine Quad .5 mL 00:00:00 [facility] Influenza Virus 2019-02-06 Completed [facility]it y of Vaccine Quad .5 mL 00:00:00 [facility] Influenza Virus 2019-02-06 Completed [facility]it y of Vaccine Quad .5 mL 00:00:00 [facility] Influenza Virus 2019-02-06 Completed [facility]it y of Vaccine Quad .5 mL 00:00:00 [place] [facility] Influenza Virus 2019-02-06 Completed Universit y of Vaccine Quad .5 mL 00:00:00 [facility] Influenza Virus 2019-02-06 Completed [facility]it y of Vaccine Quad .5 mL 00:00:00 [facility] Influenza Virus 2019-02-06 Completed [facility]it y of Vaccine Quad .5 mL 00:00:00 [facility] Influenza Virus 2019-02-06 Completed [facility]it y of Vaccine Quad .5 mL 00:00:00 [facility] Influenza Virus 2019-02-06 Completed [facility]it y of Vaccine Quad .5 mL 00:00:00 [facility] Influenza Virus 2019-02-06 Completed [facility]it y of Vaccine Quad .5 mL 00:00:00 [facility] Influenza Virus 2019-02-06 Completed [facility]it y of Vaccine Quad .5 mL 00:00:00 [facility] Influenza Virus 2019-02-06 Completed [facility]it y of Vaccine Quad .5 mL 00:00:00 [facility] IM 6+ MO Branch Vital Signs Vital Name Observation Time Observation Value Comments Source Systolic blood 2022-05-05 22:05:00 126 mm[Hg] Univer sity of pressure [facility] Diastolic blood 2022-05-05 22:05:00 75 mm[Hg] Unive rsity of [facility] Heart rate 2022-05-05 22:05:00 99 /min [facility] ty [facility] Respiratory rate 2022-05-05 22:05:00 16 /min [facility] acute hospital Oxygen saturation in 2022-05-05 22:05:00 99 /min [facility] Arterial blood by [facility] Pulse oximetry Branch Body temperature 2022-05-05 18:24:00 37.11 Irene [facility] acute [facility] Body height 2022-05-05 18:24:00 [facility]9 [facility] Body weight 2022-05-05 18:24:00 54.432 kg [facility] acute hospital BMI 2022-05-05 18:24:00 22.67 kg/m2 [facility] acute hospital Systolic blood 2022-04-26 14:28:00 135 mm[Hg] Univer sity of pressure [facility] Diastolic blood 2022-04-26 14:28:00 95 mm[Hg] Unive rsity of pressure [facility] Heart rate 2022-04-26 14:28:00 93 /min [facility] Body temperature 2022-04-26 14:28:00 36.89 [facility] 2022-04-26 14:28:00 18 /min [facility] of [facility] Body height 2022-04-26 14:28:00 154.9 [...] 00:21:00 151 mm[Hg] Univer sity of pressure [facility] Diastolic blood 2022-04-26 00:21:00 98 mm[Hg] Unive rsity of pressure [facility] Heart rate 2022-04-26 00:21:00 98 /min Universi ty of [facility] Body temperature 2022-04-26 00:21:00 36.72 Irene Univ ersity of [facility] Respiratory rate 2022-04-26 00:21:00 18 /min Univ ersity of [facility] Body height 2022-04-26 00:21:00 154.9 cm Universi ty [facility] Body weight 2022-04-26 00:21:00 54.432 kg [facility]i ty [facility] BMI 2022-04-26 00:21:00 22.67 kg/m2 Universi ty of [facility] Oxygen saturation in 2022-04-26 00:21:00 100 /min [facility]ial blood by [place] [facility] P[facility]xim[facility] Systolic blood 2022-04-09 14:39:00 122 mm[Hg] Univer sity of pressure [facility] Diastolic blood 2022-04-09 14:39:00 84 mm[Hg] Unive rsity of pressure [facility] Heart rate 2022-04-09 14:39:00 96 /min [facility]i ty [facility] Body height 2022-04-09 14:39:00 154.9 cm [facility] Body weight 2022-04-09 14:39:00 60.328 kg [facility] BMI 2022-04-09 14:39:00 25.13 kg/m2 [facility]i ty of [facility] Oxygen saturation in 2022-04-09 14:39:00 98 /min [facility]terial blood by [place] [facility] P[facility]xim[facility] Systolic blood 2022-04-07 22:43:36 131 mm[Hg] Univer sity of pressure [facility] Diastolic blood 2022-04-07 22:43:36 83 mm[Hg] Unive rsity of pressure [facility] Heart rate 2022-04-07 22:43:36 113 /min Universi ty of [facility] Respiratory rate 2022-04-07 22:43:36 18 /min Univ ersity of [facility] Oxygen saturation in 2022-04-07 22:43:36 97 /min University of Arterial blood by [facility] Pulse oximetry Branch Body temperature 2022-04-07 19:41:00 37.17 Irene Univ ersity of [facility] Body height 2022-04-07 19:41:00 154.9 cm Universi ty of [facility] Body weight 2022-04-07 19:41:00 60.328 kg [facility]i ty of [facility] BMI 2022-04-07 19:41:00 25.13 kg/m2 [facility] ty [facility] Systolic blood 2022-03-24 19:00:00 125 mm[Hg] Univer sity of pressure [facility] Diastolic blood 2022-03-24 19:00:00 86 mm[Hg] Unive rsity of pressure [facility] Heart rate 2022-03-24 19:00:00 93 /min Universi ty of [facility] Respiratory rate 2022-03-24 19:00:00 17 /min Univ ersity of [facility] Oxygen saturation in 2022-03-24 19:00:00 97 /min University of Arterial blood by [facility] Pulse oximetry Branch Body temperature 2022-03-24 13:33:00 36.78 Irene Univ ersity of [facility] Systolic blood 2022-03-15 19:23:00 128 mm[Hg] Univer sity of pressure [facility] Diastolic blood 2022-03-15 19:23:00 89 mm[Hg] Unive rsity of pressure [facility] Heart rate 2022-03-15 19:23:00 104 /min Universi ty of [facility] Body weight 2022-03-15 19:23:00 60.328 kg Universi ty of [facility] BMI 2022-03-15 19:23:00 25.13 kg/m2 [facility] ty [facility] Oxygen saturation in 2022-03-15 19:23:00 98 /min University of Arterial blood by [employer] [facility]ess[facility] Pulse oximetry Branch Systolic blood 2022-03-15 15:02:00 115 mm[Hg] Univer sity of pressure [facility] Diastolic blood 2022-03-15 15:02:00 70 mm[Hg] Unive rsity of pressure [facility] Heart rate 2022-03-15 15:02:00 85 /min Universi ty of [facility] Respiratory rate 2022-03-15 15:02:00 20 /min Univ ersity of [facility] Oxygen saturation in 2022-03-15 15:02:00 99 /min University of Arterial blood by [employer] yessi Pulse oximetry Branch Body temperature 2022-03-15 13:38:00 36.94 Irene Univ ersity of [facility] Body height 2022-03-15 13:38:00 154.9 cm Universi ty [facility] Body weight 2022-03-15 13:38:00 54.432 kg [facility]i ty [facility] BMI 2022-03-15 13:38:00 22.67 kg/m2 [facility] ty [facility] Systolic blood 2022-03-11 16:30:00 124 mm[Hg] Univer sity of pressure [facility] Diastolic blood 2022-03-11 16:30:00 88 mm[Hg] Unive rsity of pressure [facility] Heart rate 2022-03-11 16:30:00 93 /min [facility]i ty [facility] Body temperature 2022-03-11 16:30:00 36.67 Irene Univ ersity of [facility] Respiratory rate 2022-03-11 16:30:00 14 /min Univ ersity of [facility] Oxygen saturation in 2022-03-11 16:30:00 100 /min University of Arterial blood by [employer] yessi Pulse oximetry Branch Body height 2022-03-11 14:19:00 154.9 cm [facility]i ty [facility] Body weight 2022-03-11 14:19:00 58.968 kg [facility]i ty [facility] BMI 2022-03-11 14:19:00 24.56 kg/m2 [facility] ty [facility] Systolic blood 2022-02-27 14:14:00 140 [...] 100 /min University of Arterial blood by [employer] [facility] Pulse oximetry Branch Systolic blood 2022-02-27 13:19:00 131 mm[Hg] Univer sity of pressure [facility] Diastolic blood 2022-02-27 13:19:00 86 mm[Hg] Unive rsity of pressure [facility] Heart rate 2022-02-27 13:19:00 102 [...] 99 /min University of Arterial blood by [employer] [facility] Pulse oximetry Branch Systolic blood 2022-02-21 08:06:00 135 mm[Hg] Univer sity of pressure [facility] Diastolic blood 2022-02-21 08:06:00 97 mm[Hg] Unive rsity of pressure [facility] Heart rate 2022-02-21 08:06:00 98 /min [facility]i ty [facility] Respiratory rate 2022-02-21 08:06:00 16 /min Univ ersity of [facility] Oxygen saturation in 2022-02-21 08:06:00 97 /min University of Arterial blood by [employer] [facility] Pulse oximetry Branch Body temperature 2022-02-21 06:16:00 36.94 Irene Univ ersity of [facility] Body height 2022-02-21 06:16:00 154.9 cm [facility]i ty [facility] Body weight 2022-02-21 06:16:00 60.963 kg [facility] BMI 2022-02-21 06:16:00 25.39 kg/m2 [facility] ty [facility] Systolic blood 2022 20:08:00 136 mm[Hg] Univer sity of pressure [facility] Diastolic blood 2022 20:08:00 96 mm[Hg] Unive rsity of pressure [facility] Heart rate 2022 20:08:00 100 /min [facility]i ty [facility] Respiratory rate 2022 20:08:00 20 /min Univ ersity of [facility] Oxygen saturation in 2022 20:08:00 98 /min University Arterial blood by [facility] Pulse oximetry Branch Body temperature 2022 16:56:00 37.06 Irene Univ ersity of [facility] Body weight 2022 16:56:00 54.432 kg [facility]i ty [facility] BMI 2022 16:56:00 22.67 kg/m2 [facility] Systolic blood 2022-02-05 14:31:00 128 mm[Hg] Univer sity of pressure [facility] Diastolic blood 2022-02-05 14:31:00 84 mm[Hg] Unive rsity of pressure [facility] Heart rate 2022-02-05 14:31:00 86 /min [facility]i ty [facility] Body temperature 2022-02-05 14:31:00 37.89 Irene Univ ersity of [facility] Respiratory rate 2022-02-05 14:31:00 18 /min Univ ersity of [facility] Body height 2022-02-05 14:31:00 154.9 cm [facility]i ty [facility] Body weight 2022-02-05 14:31:00 54.432 kg [facility]i ty [facility] BMI 2022-02-05 14:31:00 22.67 kg/m2 [facility] ty [facility] Oxygen saturation in 2022-02-05 14:31:00 98 /min University of Arterial blood by [facility] yessi Pulse oximetry Branch Systolic blood 2022-01-18 14:50:00 144 mm[Hg] Univer sity of pressure [facility] Diastolic blood 2022-01-18 14:50:00 92 mm[Hg] Unive rsity of pressure [facility] Heart rate 2022-01-18 14:50:00 94 /min Universi ty of [facility] Respiratory rate 2022-01-18 14:50:00 20 /min Univ ersity of [facility] Oxygen saturation in 2022-01-18 14:50:00 99 /min University of Arterial blood by [facility] Pulse oximetry Branch Body weight 2022-01-18 10:18:00 54.432 kg Universi ty of [facility] BMI 2022-01-18 10:18:00 22.67 kg/m2 [facility] ty [facility] Body temperature 2022-01-18 10:15:00 36.72 Irene Univ ersity [facility] Systolic blood 2022-01-15 15:48:26 125 mm[Hg] Univer sity of pressure [facility] Diastolic blood 2022-01-15 15:48:26 85 mm[Hg] Unive rsity of pressure [facility] Heart rate 2022-01-15 15:48:26 95 /min [facility]i ty [facility] Respiratory rate 2022-01-15 15:48:26 18 /min Univ ersity [facility] Oxygen saturation in 2022-01-15 15:48:26 98 /min University of Arterial blood by [facility] Pulse oximetry Branch Body temperature 2022-01-15 13:32:00 37.11 Irene Univ [facility] Body height 2022-01-15 13:32:00 154.9 cm [facility] ty [facility] Body weight 2022-01-15 13:32:00 54.432 kg [facility] ty [facility] BMI 2022-01-15 13:32:00 22.67 kg/m2 [facility] Systolic blood 2022-01-09 00:37:11 127 mm[Hg] Univer sity of pressure [facility] Diastolic blood 2022-01-09 00:37:11 90 mm[Hg] Unive rsity of pressure [facility] Heart rate 2022-01-09 00:37:11 94 /min Universi ty of [facility] Body temperature 2022-01-09 00:37:11 37.11 [facility] Respiratory rate 2022-01-09 00:37:11 16 /min [facility] in 2022-01-09 00:37:11 97 /min [facility] Arterial blood by [facility] Pulse oximetry Branch Body height 2022-01-08 23:03:00 154.9 cm Universi ty of [facility] Body weight 2022-01-08 23:03:00 58.06 kg Universi ty [facility] BMI 2022-01-08 23:03:00 24.19 kg/m2 [facility] acute hospital Systolic blood 2021-12-12 18:00:00 126 mm[Hg] Univer sity of [facility] Diastolic blood 2021-12-12 18:00:00 87 mm[Hg] Unive rsity of [facility] Heart rate 2021-12-12 18:00:00 86 /min Universi ty [facility] Body temperature 2021-12-12 18:00:00 36.89 [facility] Res[facility] 2021-12-12 18:00:00 18 /min [facility] Body height 2021-12-12 18:00:00 154.9 cm Universi ty [facility] Body weight 2021-12-12 18:00:00 57.153 kg Universi ty [facility] BMI 2021-12-12 18:00:00 23.81 kg/m2 [facility] acute hospital Procedures Procedure Date / Time Performing Clinician Source Performed COMP. METABOLIC PANEL 2022-05-05 19:14:00 Karon Norton [facility] ([id number]) [facility] CBC WITH DIFF 2022-05-05 19:14:00 Karon Norton [facility] POCT TEST 2022-05-05 19:00:00 Karon Norton [facility] URINALYSIS 2022-05-05 18:58:00 Karon Norton [facility] CT ABDOMEN PELVIS WO 2022-04-26 15:11:00 Zion Bridges [facility] CONTRAST [facility] COMP. METABOLIC PANEL 2022-04-26 14:49:00 Zion Bridges [facility] ([id number]) [facility] [place] CBC WITH DIFF 2022-04-26 14:49[facility]22-04-26 14:49:00 Singer [facility] POCT TEST 2022-04-26 14:45:00 Zion Bridges [facility] acute hospital CONSENT/REFUSAL FOR 2022-04-26 14:22:29 Doctor Unassigned, No [facility] [place] [facility] Name [facility] POCT TEST 2022-04-26 01:22:00 Zion Bridges [facility] acute hospital ASSIGNMENT OF BENEFITS 2022-04-26 00:54:02 Doctor Unassigned, No [facility] URINALYSIS 2022-04-26 00:45:00 Singer [facility] CONSENT/REFUSAL FOR 2022-04-26 00:16:47 Doctor Unassigned, No [facility] [place] [facility] BASIC METABOLIC PANEL 2022-04-07 22:35:00 Olamide Garvin [facility] (NA, K, CL, CO2, Medical Branch GLUCOSE, BUN, CREATININE, CA) CBC WITH DIFF 2022-04-07 22:35:00 Olamide Garvin [facility] URINALYSIS 2022-04-07 21:36:00 Olamide Garvin [facility] URINE DRUG (IMMUNOASSAY) 2022-04-07 21:36:00 Olamide Garvin [facility] [place] - COMPREHENSIVE DR[facility] Medical Bra nch SCREEN W/O REFLEX CONSENT/REFUSAL FOR 2022-04-07 19:29:15 Doctor Unassigned, No [facility] [place] [facility]AT[facility] POCT TEST 2022-03-24 14:07:00 Kellie Duncan [facility] CONSENT/REFUSAL FOR 2022-03-24 13:27:20 Doctor Unassigned, No [facility] [place] [facility]REAT[facility] Name Medical [place] ABDOMEN PELVIS WO 2022-03-15 14:09:04 Anna Gould [facility] URINALYSIS 2022-03-15 13:53:00 Anna Gould [facility] POCT TEST 2022-03-15 13:52:00 Anna Gould [facility] CONSENT/REFUSAL FOR 2022-03-15 13:37:02 Doctor Unassigned, No [facility] [place] DIAG[facility] TREATMENT Name [facility] POCT TEST 2022-03-11 14:59:00 Angelica Viveros [facility] FLU VACC (), 6 2022-02-27 13:34:55 Vijay Martinez [facility] MO-64 YRS, .5ML, IM, Medical Bra nc QUAD (FLUCELVAX) NOTICE OF PRIVACY 2022-02-21 06:06:30 Doctor Unassigned, No [facility] PRACTICES [facility] Medical [place] CONSENT/REFUSAL FOR 2022-02-21 06:03:41 Doctor Unassigned, No [facility] [place] [facility]REAT[facility] Name [facility] XR ANKLE <3 VW RIGHT 2022 17:56:42 Maggie Hamilton [facility] ABDOMEN PELVIS W 2022 17:44:17 Maggie Hamilton [facility] CT TRAUMA CERVICAL SPINE 2022 17:43:49 Maggie Hamilton [facility] WO CONTRAST [facility] POCT TEST 2022 17:27:00 Maggie Hamilton [facility] COMP. METABOLIC PANEL 2022 17:17:00 Maggie Hamilton [facility] ([id number]) [facility] CBC WITH DIFF 2022 17:17:00 Maggie Hamilton [facility] CONSENT/REFUSAL FOR 2022 16:53:13 Doctor Unassigned, No [facility] [place] [facility]RE[facility] Name [facility] US GALL BLADDER 2022-01-18 12:31:09 Bernardo Levy [place] [facility] [place] [facility] US PELVIS COMPLETE WITH 2022-01-18 12:21:13 Melvin Zhao [facility] TRANSVAGINAL [facility] CT ABDOMEN PELVIS W 2022-01-18 11:20:50 Melvin Zhao [facility] CONTRAST [facility] POCT TEST 2022-01-18 10:57:00 Jayy Kennedy [facility] COVID-19 (ID NOW RAPID 2022-01-18 10:57:00 Jayy Kennedy [facility] TESTING) Medical Branch URINALYSIS 2022-01-18 10:47:00 Jayy Kennedy [facility] LIPASE 2022-01-18 10:29:00 Jayy Kennedy [facility] TEST, SERUM 2022-01-18 10:29:00 KennedyJayy [facility] HEPATIC FUNCTION PANEL 2022-01-18 10:29:00 Jayy Kennedy [facility] ([id number]) (ALB,T.PRO,BILI [facility] T,BU/BC,ALT,AST,ALK PHOS) BASIC METABOLIC PANEL 2022-01-18 10:29:00 Jayy Kennedy [facility] (NA, K, CL, CO2, Medical Branch GLUCOSE, BUN, CREATININE, CA) CBC WITH DIFF 2022-01-18 10:29:00 Jayy Kennedy [facility] CONSENT/REFUSAL FOR 2022-01-18 10:13:31 Doctor Unassigned, No [facility] [place] [facility]RE[facility] Name [facility] CT HEAD WO CONTRAST 2022-01-15 15:22:29 Danita [facility] TEST, SERUM 2022-01-15 14:36:00 Danita [facility] BASIC METABOLIC PANEL 2022-01-15 14:36:00 Danita [facility] (NA, K, CL, CO2, [facility] GLUCOSE, BUN, CREATININE, CA) CBC WITH DIFF 2022-01-15 14:36:[address] [facility] CONSENT/REFUSAL FOR 2022-01-15 13:28:12 Doctor Unassigned, No [facility] Name Medical Branch XR CERVICAL SPINE 4 VW 2022-01-09 00:29:16 Gabriela Humebrto [facility] XR LUMBAR SPINE 4 VW 2022-01-09 00:29:16 Humberto Ochoa [facility] XR SPINE THORACIC 3 VW 2022-01-09 00:29:16 Gabriela [facility] URINALYSIS 2022-01-08 23:50:00 Gabriela Humberto [facility] CONSENT/REFUSAL FOR 2022-01-08 22:51:08 Doctor Unassigned, No Un [facility] DIAGNOSIS AND TREATMENT Name [facility] Branch GALV ONLY - VAGINAL 2021-12-12 18:37:00 [facility]ENS BY [facility] Medical [facility] ACID TESTING URINE CULTURE 2021-12-12 18:32:00 [facility] POCT TEST 2021-12-12 18:31:00 [facility] POCT URINALYSIS W/O 2021-12-12 18:31:00 [facility] SPECIFIC GRAVITY [facility] Plan of Care Planned Activity Planned Date Details Comments Source Future Scheduled 2029-05-21 DTaP,Tdap,and Td [facility] Test 00:00:00 Vaccines (2 - Td) Medical Br anch [code = DTaP,Tdap,and Td Vaccines (2 - Td)] Future Scheduled 2021-09-06 Depression screening [facility] Test 00:00:00 (procedure) [code = Medical Branch [id number]] Future Scheduled 2016-02-19 Screening for [facility] Test 00:00:00 malignant neoplasm Medical B ranch of cervix (procedure) [code = 735578075] Future Scheduled 2013 Hepatitis C [facility] Test 00:00:00 screening Medical Branch (procedure) [code = 359339665] Future Scheduled 2011 SARS-CoV-2 [facility] Test 00:00:00 (COVID-19) Vaccine Medical B ranch (1) [code = SARS-CoV-2 (COVID-19) Vaccine (1)] Future Scheduled 2006 HPV VACCINES (1 - [facility] [place] Test 00:00:00 2-dose series) [code Medical Branch = HPV VACCINES (1 - 2-dose series)] Encounters Start End Encounter Admission Attending Care Care Encounter Source Date/Time Date/Time Type Type Clinicians Facility Department ID 2021-03-14 Emergency [facility] [id number] Univers 03:14:31 ity of [facility] 2021-03-13 Emergency [facility] [id number] Univers 20:05:20 ity of [facility] 2021-03-13 Emergency [facility] [id number] Univers 12:48:28 ity of [facility] 2021-03-13 Emergency [facility] [id number] Univers 02:43:51 ity of [facility] 2021-03-13 Emergency [facility] [id number] Univers 00:27:09 ity of [facility] 2021-03-12 Emergency [facility] [id number] Univers 22:10:36 ity of [facility] 2021-03-12 Emergency [facility] [id number] Univers 20:04:05 ity of [facility] 2021-03-12 Emergency [facility] [id number] Univers 15:25:05 ity of [facility] 2021-03-12 Emergency [facility] [id number] Univers 11:43:36 ity of [facility] 2021-03-12 Emergency [facility] [id number] Univers 07:41:37 ity of [facility] 2021-03-12 Emergency [facility] [id number] Univers 05:43:47 ity of [facility] 2021-03-12 Emergency [facility] [id number] Univers 03:43:41 ity of [facility] 2021-03-12 Emergency [facility] [id number] Univers 01:31:27 ity of [facility] 2021-03-12 Emergency X [facility] ERT [id number] Univers 00:56:44 ity of [facility] 2021-03-12 Emergency [facility] [id number] Univers 00:56:31 ity of [facility] 2021-03-11 Emergency [facility] [id number] Univers 17:47:02 ity of [facility] 2021-03-11 Emergency [facility] [id number] Univers 16:27:15 ity of [facility] 2021-03-11 Emergency [facility] [id number] Univers 12:00:58 ity of [facility] 2021-03-11 Emergency [facility] [id number] Univers 10:33:59 ity of [facility] 2021-03-11 Emergency [facility] [id number] Univers 01:36:52 ity of [facility] 2021-03-10 Emergency [facility] [id number] Univers 23:35:34 ity of [facility] 2021-03-10 Emergency [facility] [id number] Univers 19:06:16 ity of [facility] 2021-03-10 Emergency [facility] [id number] Univers 12:39:47 ity of [facility] 2021-03-10 Emergency [facility] [id number] Univers 06:54:04 ity of [facility] 2021-03-09 Outpatient P [facility] CHRIS [id number] Univers 13:25:44 ity of [facility] 2021-03-09 Outpatient P [facility] [id number] Univers 13:08:01 ity of [facility] 2021-03-09 Outpatient P [facility] [id number] Univers 12:37:25 ity of [facility] 2021-03-09 Outpatient P [facility] [id number] Univers 11:51:20 ity of [facility] 2022-05-29 2022-05-29 Outpatient R LEXY [facility] [id number] Univers 08:00:00 08:00:00 KASSANDRAAUGUSTO lechuga [facility] 2022-05-15 2022-05-15 Outpatient R ANGELA [facility] [id number] Univers 09:20:00 09:20:00 BENNETT ity [facility] 2022-05-11 2022-05-11 Outpatient R LEXY [facility] [id number] Univers 09:30:00 09:30:00 KASSANDRA ity [facility] 2022-05-05 2022-05-05 Emergency X NORTON, [facility] ERT [id number] Univers 12:26:00 16:11:00 KARON ity [facility] 2022-05-05 2022-05-05 [facility] 1.2.840.114 [id number] Univers 12:26:00 16:11:00 Karon LULU 350.1.13.10 i ty [facility] 4.2.7.2.686 [facility] [id number] [address] 2022-05-01 2022-05-01 Outpatient R PRASANNA VARGAS [facility] [id number] Univers 00:00:00 00:00:00 ankush [facility] 2022-04-26 2022-04-26 Emergency X [facility] ERT [id number] Univers 08:30:00 09:59:00 ZION chino [facility] 2022-04-26 2022-04-26 Emergency [facility] 1.2.917.087 [id number] Univers 08:30:00 09:59:00 Zion LAWSON 350.1.13.10 i ty of [place] 4.2.7.2.686 [facility] [id number] [address] 2022-04-25 2022-04-25 Emergency [facility] ERT [id number] Univers 18:23:00 21:55:00 KENNEDY cihno [facility] 2022-04-25 2022-04-25 Emergency [facility] 1.2.009.837 [id number] Univers 18:23:00 21:55:00 Kennedy LAWSON 350.1.13.10 i ty of [facility] 4.2.7.2.[address] [place] [id number] 2022-04-19 2022-04-19 Outpatient R JC [facility] [id number] Univers 10:00:00 10:00:00 JEREMY chino [facility] 2022-04-12 2022-04-12 Telephone [facility] 1.2.638.577 [id number] Univers 00:00:00 00:00:00 Buru Buru 350.1.13.10 it y of [place] 4.2.7.2.686 Martin as TOÑO?BLEA [id number] [address] [facility] 2022-04-11 2022-04-11 Telephone Patti [facility] 1.2.840.114 [id number] Univers 00:00:00 00:00:00 [facility] [employer] 350.1.13.10 ity of [facility] 4.2.7.2.686 [place] as TOÑO?BLEA [id number] [address] [facility] 2022-04-10 2022-04-10 Telephone [facility] 1.2.692.620 [id number] Univers 00:00:00 00:00:00 Kassandra HEALTH 350.1.13.10 it y of [facility] 4.2.7.2.686 [place] TOÑO?BLEA [id number] [address] 2022-04-09 2022-04-09 Office [facility] 1.2.840.114 [id number] Univers 09:30:00 09:30:00 Visit Buru Buru 350.1.13.10 it y of [place] 4.2.7.2.686 [place] as TOÑO?BLEA [id number] [address] 2022-04-09 2022-04-09 [facility] [id number] Univers 09:30:00 09:21:44 KASSANDRA lechuga [facility] 2022-04-07 2022-04-[address] [facility] ERT [id number] Univers 13:41:00 17:49:00 OLAMIDE lechuga [facility] 2022-04-07 2022-04-07 Emergency [facility] 1.2.064.573 [id number] Univers 13:41:00 17:49:00 Olamide LAWSON 350.1.13.10 ity of [place].2.686 [place] [id number] [address] 2022-04-04 2022-04-04 Telephone [facility] 1.2.113.014 [id number] Univers 00:00:00 00:00:00 Kassandra HEALTH 350.1.13.10 it y of [place] 4.2.7.2.686 [place] as TOÑO?BLEA [id number] [address] [facility] 2022-04-02 2022-04-02 Outpatient Farzana PUGH [facility] [id number] Univers 10:30:00 10:30:00 KASSANDRA hirenchino [facility] 2022-03-28 2022-03-28 Patient Doctor [facility] 1.2.840.114 [id number] Univers 00:00:00 00:00:00 Secure [facility] 350.1.13.10 ity of [place] 4.2.7.2.686 [place] TOÑO?BLEA [id number] [address] 2022-03-24 2022-03-24 Emergency X [facility], [facility] ERT [id number] Univers 07:35:00 13:11:00 KELLIE lechuga [facility] 2022-03-24 2022-03-24 [facility] 1.2.323.466 [id number] Univers 07:35:00 13:11:00 Kellie LAWSON 350.1.13.10 ity of [facility] 4.2.7.2.686 [place] [facility] [id number] [address] 2022-03-23 2022-03-23 Outpatient Farzana PUGH [facility] [id number] Univers 10:30:00 10:30:00 KASSANDRA ankush [facility] 2022-03-23 2022-03-23 Telephone [facility] 1.2.840.114 [id number] Univers 00:00:00 00:00:00 [facility] 350.1.13.10 ity of [place] 4.2.7.2.686 [place] as TOÑO?BLEA [id number] [address] 2022-03-22 2022-03-22 Telephone [facility] 1.2.840.114 [id number] Univers 00:00:00 00:00:00 [facility] 350.1.13.10 ity of [place] 4.2.7.2.686 [place] TOÑO?BLEA [id number] [address] 2022-03-22 2022-03-22 Refill [facility] 1.2.840.114 [id number] Univers 00:00:00 00:00:00 [facility] 350.1.13.10 ity of [place] 4.2.7.2.686 [place] as TOÑO?BLEA [id number] [address] 2022-03-21 2022-03-21 Telephone [facility] 1.2.840.114 [id number] Univers 00:00:00 00:00:00 [facility] 350.1.13.10 ity of [place] 4.2.7.2.686 [place] as TOÑO?BLEA [id number] [address] 2022-03-15 2022-03-15 Outpatient R ARJUN [facility] [id number] Univers 14:00:00 14:36:19 REJI maradiagay o f [facility] 2022-03-15 2022-03-15 Office [facility] 1.2.840.114 [id number] Univers 14:00:00 14:36:19 Visit Reji [place] 350.1.13.10 [facility] 4.2.7.2.686 [facility] [id number] [facility] 059 [facility] 2022-03-15 2022-03-15 Emergency X DARRIAN [facility] ERT [id number] Univers 08:40:00 10:47:00 ANNA lechuga [facility] 2022-03-15 2022-03-15 Emergency [facility] 1.2.840.114 [id number] Univers 08:40:00 10:47:00 Anna [facility] SERVICESDAYAMI 350.1.13.10 i ty of [place].2.686 [place] [id number] [address] 2022-03-14 2022-03-14 Outpatient R PRASANNA VARGAS [facility] [id number] Univers 10:30:00 10:30:00 ity [facility] 2022-03-11 2022-03-11 Emergency X FELICE [facility] ERT [id number] Univers 09:22:00 12:15:00 SHINTA itchino [facility] 2022-03-11 2022-03-11 Emergency [facility] 1.2.840.114 [id number] Univers 09:22:00 12:15:00 Shinta [place] 350.1.13.10 i ty of [place] 4.2.7.2.686 [place] [id number] [address] 2022-03-06 2022-03-06 Outpatient R LEXY [facility] [id number] Univers 08:30:00 08:30:00 KASSANDRA chino [facility] 2022-03-02 2022-03-02 Telephone [facility] 1.2.840.114 [id number] Univers 00:00:00 00:00:00 [facility] 350.1.13.10 ity of [place] 4.2.7.2.686 [place] TOÑO?BLEA [id number] Ca whit OCAS[address] [facility] 2022-02-27 2022-02-27 Outpatient R LEXY [facility] [id number] Univers 09:30:00 09:49:42 KASSANDRA chino [facility] 2022-02-27 2022-02-27 Office [facility] 1.2.840.114 [id number] Univers 09:30:00 09:49:42 Visit [facility] 350.1.13.10 it y of [facility] 4.2.7.2.686 [place] TOÑO?BLEA [id number] Ca whit [place] [address] [place] [address] [facility] 2022-02-27 2022-02-27 Office [facility] 1.2.840.114 [id number] Univers 08:00:00 09:12:17 Visit [facility] 350.1.13.10 it y of [facility] 4.2.7.2.686 [place] TOÑO?BLEA [id number] Ca dicaliyah [facility] [facility] [facility] 2022-02-26 2022-02-26 Outpatient [facility] [id number] Univers 11:30:00 11:30:00 KASSANDRA lechuga [facility] 2022-02-21 2022-02-21 Emergency [facility] ERT [id number] Univers 01:20:00 03:44:00 MAGGIE maradiagachino [facility] 2022-02-21 2022-02-21 Emergency [facility] 1.2.840.114 [id number] Univers 01:20:00 03:44:00 Maggie LAWSON 350.1.13.10 ity of [place].2.686 [place] [id number] [facility] [address] [place] 2022-02-19 2022-02-19 Patient [facility] 1.2.840.114 [id number] Univers 00:00:00 00:00:00 Secure Msg Kendal Amaral HEALTH 350.1.13.10 ity of [place] 4.2.7.2.686 [place] TOÑO?BLEA [id number] [address] [facility] 2022-02-19 2022-02-19 Patient [facility] 1.2.840.114 [id number] Univers 00:00:00 00:00:00 Secure Msg Kendal Amaral HEALTH 350.1.13.10 ity of [place] 4.2.7.2.686 [place] TOÑO?BLEA [id number] [address] 2022-02-19 2022-02-19 Patient Suzette [facility] 1.2.658.450 [id number] Univers 00:00:00 00:00:00 Secure Msg Ade N FLACO 350.1.13.10 ity of [facility] 4.[place].7.2.686 [place] [phone] [facility] [address] [place] 2022 2022 Emergency [facility] ERT [id number] Univers 11:58:00 15:13:00 MAGGIE lechuga [facility] 2022 2022 Emergency [facility] 1.2.840.114 [id number] Univers 11:58:00 15:13:00 Maggie LAWSON 350.1.13.[address] [facility] 4.2.7.2.686 [place] [id number] [facility] [address] [place] 2022-02-09 2022-02-09 Outpatient R ELAGRACIE, [facility] [id number] Univers 09:00:00 09:00:00 CRICKET ankush o f [facility] 2022-02-06 2022-02-06 [facility] [id number] Univers 10:00:00 10:00:00 VIJAY maradiagachino [facility] 2022-02-05 2022-02-05 Nurse Nurse, F[facility] 1.2.840.114 [id number] Univers 09:45:00 10:05:00 Visit Mitchell [facility] 350.1.13.10 ity [facility] 4.2.7.2.686 [place] TOÑO?BLEA [id number] Ca whit OCASIOEY [address] MEDICAL OFFICE BUILDING 2022-02-05 2022-02-05 Outpatient R [facility] [id number] Univers 09:20:00 09:20:00 FLACO ankush o f [facility] 2022-01-26 2022-01-26 Prasanna Gimenez [facility] 1.2.185.355 [id number] Univers 00:00:00 00:00:00 Management Jm LAWSON 350.1.13.[address] [facility] 4.2.7.2.686 [place] [facility] [id number] Ca dicaliyah [facility] [address] BUILDING 2022-01-22 2022-01-22 Outpatient [facility] [id number] Univers 11:00:00 11:00:00 VIJAY lechuga [facility] 2022-01-18 2022-01-18 Emergency X GARDENIA [facility] ERT [id number] Univers 05:17:00 10:25:00 BERNARDO lechuga [facility] 2022-01-18 2022-01-18 Emergency Jayy Kennedy W [facility] 1.2.840.11 [id number] Univers 05:17:00 10:25:00 Bernardo Levy [facility] 350.1.13.10 [place].2.686 [place] [id number] [facility] [address] 2022-01-15 2022-01-15 Emergency X DANITA [facility] ERT [id number] Univers 08:34:00 10:49:00 MAURA itchino [facility] 2022-01-15 2022-01-15 Emergency Larry Perez [facility] 1.2.840.1 [id number] Univers 08:34:00 10:49:00 Maura Samayoa Lee [place] 350.1.13.10 ity of [place].2.7.2.686 [place] [id number] [place] [address] [place] 2022-01-08 2022-01-08 Emergency X GABRIELA, [facility] ERT [id number] Univers 18:04:00 20:09:00 [facility] 2022-01-08 Emergency Gabriela, [facility] 1.2.840.114 [id number] Univers 18:04:00 20:09:00 Humberto LAWSON 350.1.13.10 i ty of [place].2.7.2.686 [place] [id number] [place] [address] [place] 2021-12-12 2021-12-12 Outpatient Farzana CARNES [facility] [id number] Univers 13:30:00 13:40:21 TETO [facility] 2021-12-12 2021-12-12 Office Prasanna Vargas [facility] 1.2.840.114 [id number] Univers 13:30:00 13:40:21 Visit Teto Carnes 350.1.13.[address] [facility] 4.2.7.2.686 [place] [id number] [address] 2021-12-12 2021-12-12 Outpatient Farzana CARNES [facility] [id number] Univers 13:30:00 13:40:21 TETO lechuga [facility] 2021-12-12 2021-12-12 Outpatient Farzana CARNES [facility] [id number] Univers 13:30:00 13:40:21 TETO [facility] 2021-12-11 2021-12-11 Outpatient R SUZETTE, [facility] [id number] Univers 16:15:00 16:15:00 ADE [facility] 2021-12-05 2021-12-05 Outpatient R LYSSA, [facility] [id number] Univers 14:15:00 14:15:00 ROMULO [facility] 2021-11-28 2021-11-28 Emergency X NORTON, [facility] ERT [id number] Univers 08:49:00 11:02:00 KARON [facility] 2021-11-28 2021-11-28 Emergency [facility] 1.2.840.114 [id number] Univers 08:49:00 11:02:00 Karon [place] 350.1.13.10 i ty of HEMET 4.2.7.2.686 [facility] [id number] [address] 2021-11-24 2021-11-24 Emergency X DEV, K [facility] ERT [id number] Univers 18:14:00 21:04:00 [facility] 2021-11-24 2021-11-24 Emergency Dev, Kaycee [facility] 1.2.840.114 [id number] Univers 18:14:00 21:04:00 Sharlene [place] 350.1.13.10 i ty of HEMET 4.2.7.2.686 [facility] [id number] [address] 2021-11-24 2021-11-24 [facility] 1.2.840.114 [id number] Univers 00:00:00 00:00:00 Cricket Lopez EDUCATION SUPERVISOR 350.1.13.10 ity [facility] 4.2.7.2.686 Martin as MATERNAL [id number] Med ical & CHILD 107 [facility] 2021-11-20 2021-11-20 [facility] 1.2.840.114 [id number] Univers 00:00:00 00:00:00 Secure Msg [place] [facility] [id number] ity of [place] 4.2.7.2.686 Martin as TOÑO?BLEA [phone] Me dical MIKI [address] [facility] 2021-11-19 2021-11-19 Anastasia JORDAN Santacruz 1.2.840.114 [id number] Univers 00:00:00 00:00:00 (Out) Leslie ARCE 350.1.13.10 it y of HOSPITAL 4.2.7.2.686 Martin as [id number] [address] 2021-11-18 2021-11-18 [facility]patient [facility] [id number] Univers 10:41:40 23:59:00 FLACO hirenchino o f [facility] 2021-11-18 2021-11-18 [facility] 1.2.890.714 [id number] Univers 10:41:40 23:59:00 Encounter [facility] 350.1.13.10 ity of [place] 4.2.7.2.686 [place] as TOÑO?BLEA [phone] Ca dicaliyah [place] 808 [facility] 2021-11-18 2021-11-[address] [facility] 1.2.840.114 [id number] Univers 10:20:00 10:53:20 [facility] 350.1.13.10 i ty of [place] 4.2.7.2.686 [place] as TOÑO?BLEA [id number] Ca dicaliyah [place] 370 [facility] 2021-11-09 2021-11-09 Outpatient [facility] [id number] Univers 10:30:00 10:30:00 CELINA maradiagay of [facility] 2021-10-25 2021-10-25 Urgent Ileana Medrano [facility] 1.2.840.114 [id number] Univers 13:20:00 13:20:00 Care [facility] 350.1.13.10 ity of [place] 4.2.7.2.686 [place] as TOÑO?BLEA [id number] Ca dical MIKI 370 [facility] 2021-10-25 2021-10-25 Outpatient R MITCHELL [facility] [id number] Univers 13:20:00 12:47:59 ILEANA chino [facility] 2021-10-25 2021-10-25 Patient Juan [facility] 1.2.840.114 [id number] Univers 00:00:00 00:00:00 Secure Msg Vijay HEALTH 350.1.13.10 ity of [place] 4.2.7.2.686 [place] as TOOÑ?BLEA [id number] [facility] [address] [place] [facility] 2021-10-25 2021-10-25 Telephone Juan [facility] 1.2.901.176 [id number] Univers 00:00:00 00:00:00 Vijay HEALTH 350.1.13.10 it y of [place] 4.2.7.2.686 [place] as TOÑO?BLEA [id number] [facility] 044 [facility] 2021-10-25 2021-10-25 Telephone Provider, [facility] 1.2.840.114 [id number] Univers 00:00:00 00:00:00 Ang Db HEALTH 350.1.13.10 it y of Urgent Care [place] 4.2.7.2.686 [place] TOÑO?BLEA [id number] [facility] 370 [facility] 2021-10-25 2021-10-25 Telephone Nurse, [facility] 1.2.840.114 [id number] Univers 00:00:00 00:00:00 Db Urgent HEALTH 350.1.13.10 ity of Care [place] 4.2.7.2.686 [place] as TOÑO?BLEA [id number] [address] [facility] 2021-10-24 2021-10-24 Outpatient Farzana OMALLEY [facility] [id number] Univers 10:15:00 10:15:00 ROMULO lechuga [facility] 2021-10-24 2021-10-24 Outpatient Farzana OMALLEY [facility] [id number] Univers 10:15:00 10:15:00 ROMULO lechuga [facility] 2021-10-11 2021-10-11 Outpatient Farzana OMALLEY [facility] [id number] Univers 09:30:00 09:30:00 ROMULO ity of [facility] 2021-10-10 2021-10-10 Outpatient R PRASANNA VARGAS [facility] [id number] Univers 13:30:00 13:30:00 ity of [facility] 2021-10-10 2021-10-10 Outpatient R PRASANNA VARGAS [facility] [id number] Univers 13:30:00 13:30:00 ity of [facility] 2021-10-10 2021-10-10 Outpatient R PRASANNA VARGAS [facility] [id number] Univers 13:30:00 13:30:00 ity of [facility] 2021-10-10 2021-10-10 Outpatient R PRASANNA VARGAS [facility] [id number] Univers 13:30:00 13:30:00 ity of [facility] 2021-10-10 2021-10-10 [facility] [id number] Univers 13:30:00 13:30:00 ity of [facility] 2021-10-10 2021-10-10 Outpatient R PRASANNA VARGAS [facility] [id number] Univers 13:30:00 13:30:00 ity of [facility] 2021-10-10 2021-10-10 Outpatient R PRASANNA VARGAS [facility] [id number] Univers 13:30:00 13:30:00 ity [facility] 2021-10-05 2021-10-05 [facility] 1.2.840.114 [id number] Univers 00:00:00 00:00:00 Secure Msg Edmonds [facility] 350.1.13.10 ity of [place] 4.2.7.2.686 [place] as TOÑO?BLEA [phone] [address] [facility] 2021-10-05 2021-10-05 Patient Robb [facility] 1.2.840.114 [id number] Univers 00:00:00 00:00:00 Secure Msg Kendal Amaral [facility] 350.1.13.10 [facility]y [facility] 4.2.7.2.686 [place] TOÑO?BLEA [phone] [address] MEDICAL OFFICE BUILDING 2021-10-04 2021-10-04 Pre Visit HILARIO Rodriguez 1.2.505.822 [id number] Univers 00:00:00 00:00:00 Outreach Melia TELLO 350.1.13.10 [place] of [place] [id number] [place] [address] [place] 2021-09-28 2021-09-28 Office [facility] 1.2.840.114 [id number] Univers 13:30:00 13:45:00 Visit Celina WATERSY 350.1.13.10 ity of [place] 4.2.7.2.686 [place] [id number] [address] 2021-09-28 2021-09-28 Outpatient R APURVA [facility] [id number] Univers 13:30:00 13:30:00 CELINA [facility] 2021-09-28 2021-09-28 Out[facility] [id number] Univers 13:30:00 13:30:00 CELINA chino [facility] 2021-09-28 2021-09-28 Patient [facility] 1.2.840.114 [id number] Univers 00:00:00 00:00:00 Secure Msg Celina WATERSY 350.1.13.10 it[place] of [place] 4[place].7.2.[place] [phone] [address] 2021-09-27 2021-09-27 Outpatient Farzana CARNES [facility] [id number] Univers 14:00:00 14:00:00 TETO lechuga [facility] 2021-09-27 2021-09-27 Outpatient Farzana PENNINGTON [facility] [id number] Univers 09:30:00 09:30:00 DANIA lechuga [facility] 2021-09-27 2021-09-27 Outpatient Farzana PENNINGTON [facility] [id number] Univers 09:30:00 09:30:00 DANIA lechuga [facility] 2021-09-27 2021-09-27 Outpatient Farzana PNENINGTON [facility] [id number] Univers 09:30:00 09:30:00 DANIA itchino [facility] 2021-09-26 2021-09-26 Outpatient R BRANDON, [facility] [id number] Univers 10:45:00 10:45:00 CRICKET ity o [facility] 2021-09-26 2021-09-26 Outpatient R BRANDON, [facility] [id number] Univers 10:45:00 10:45:00 CRICKET ity o [facility] 2021-09-26 2021-09-26 [facility] 1.2.840.114 [id number] Univers 00:00:00 00:00:00 Secure [facility] HEALTH 350.1.13.10 ity of [place] 4.2.7.2.686 [place] TOÑO?BLEA [id number] [facility] [address] [place] [facility] 2021-09-26 2021-09-26 Patient Juan [facility] 1.2.840.114 [id number] Univers 00:00:00 00:00:00 [facility] 350.1.13.10 ity of [place] 4.2.7.2.686 [place] TOÑO?BLEA [phone] [facility] [address] [place] [facility] 2021-09-25 2021-09-25 Urgent Lopez Boydy [facility] 1.2.840. 114 [id number] Univers 10:20:00 11:10:42 Care Mitchell [facility] 350.1.13.10 ity of [place] 4.2.7.2.686 [place] TOÑO?BLEA [id number] [facility] [address] [place] [facility] 2021-09-25 2021-09-25 Outpatient R OLIVER, [facility] [id number] Univers 10:20:00 11:10:42 FLACO fitzpatrick [facility] 2021-09-25 2021-09-25 Outpatient R OLIVER [facility] [id number] Univers 10:20:00 10:20:00 FLACO fitzpatrick [facility] 2021-09-25 2021-09-25 Outpatient R PRASANNA VARGAS [facility] [id number] Univers 10:00:00 10:00:00 ity of [facility] 2021-09-25 2021-09-25 Telephone Oliver [facility] 1.2.840.114 [id number] Univers 00:00:00 00:00:00 Flaco [facility] 350.1.13.10 i ty of [place] 4.2.7.2.686 [place] TOÑO?BLEA [phone] Ca dicaliyah [place] [address] [place] [facility] 2021-09-25 2021-09-25 Patient Prasanna Vargas [facility] 1.2.497.833 [id number] Univers 00:00:00 00:00:00 Secure Msg Cam [place] 350.1.13.10 ity of [place] PROFESS[place] [phone] [facility] 134 [facility] 2021-09-25 2021-09-25 Telephone [facility] 1.2.840.114 [id number] Univers 00:00:00 00:00:00 Cricket Lopez EDUCATION SUPERVISOR 350.1.13.10 ity of [facility] 4.2.7.2.686 [place] as MATERNAL [phone] Med ical & CHILD 107 [facility] 2021-09-25 2021-09-25 Telephone Apurva [facility] 1.2.447.388 [id number] Univers 00:00:00 00:00:00 Celina SAM 350.1.13.10 ity of [facility] 4.2.7.2.686 [place] [phone] [address] 2021-09-15 2021-09-15 Patient Robb [facility] 1.2.840.114 [id number] Univers 00:00:00 00:00:00 Secure Msg Kendal M HEALTH 350.1.13.10 ity of [place] 4.2.7.2.686 [place] TOÑO?BLEA [id number] Ca dicaliyah [place] [address] [place] [facility] 2021-09-15 2021-09-15 Patient Robb [facility] 1.2.840.114 [id number] Univers 00:00:00 00:00:00 Secure Msg Kendal Amaral HEALTH 350.1.13.10 ity of [place] 4.2.7.2.686 [place] TOÑO?BLEA [id number] Ca whit [address] [facility] 2021-09-15 2021-09-15 Patient Robb [facility] 1.2.840.114 [id number] Univers 00:00:00 00:00:00 Secure Msg Kendal Amaral HEALTH 350.1.13.10 ity of [place] 4.2.7.2.686 [place] TOÑO?BLEA [phone] Ca alessandra[address] [facility] 2021-09-14 2021-09-14 Patient Juan [facility] 1.2.840.114 [id number] Univers 00:00:00 00:00:00 Secure Msg Vijay HEALTH 350.1.13.10 ity of [place] 4.2.7.2.686 [place] TOÑO?BLEA [phone] [address] [facility] 2021-09-12 2021-09-12 Outpatient Farzana MIXON [facility] [id number] Univers 10:30:00 10:30:00 CELINA lechuga [facility] 2021-09-12 2021-09-12 Outpatient Farzana MIXON [facility] [id number] Univers 10:30:00 10:30:00 CELINA lechuga [facility] 2021-09-12 2021-09-12 Patient Meet [facility] 1.2.840.114 [id number] Univers 00:00:00 00:00:00 Secure Msg Daniel OLSENPEC 350.1.13.10 ity of [place] [id number] [facility] AND [address] [facility] 2021-09-12 2021-09-12 Orders Doctor ORTEGA 1.2.840.114 [id number] Univers 00:00:00 00:00:00 Only Unassigned, YAZMIN 350.1.13.10 ity of [place] [facility] 4.2.7.2.686 [place] as [phone] [address] 2021-09-12 2021-09-12 Patient Juan [facility] 1.2.840.114 [id number] Univers 00:00:00 00:00:00 Secure Msg Vijay HEALTH 350.1.13.10 ity of [place] 4.2.7.2.686 [place] TOÑO?BLEA [phone] Ca whit [place] [address] [place] [facility] 2021-09-05 2021-09-05 Patient Juan [facility] 1.2.840.114 [id number] Univers 00:00:00 00:00:00 Secure Msg Vijay HEALTH 350.1.13.10 ity of [place] 4.2.7.2.686 [place] TOÑO?BLEA [phone] Ca whit [place] 044 [facility] 2021-09-04 2021-09-04 Patient Juan [facility] 1.2.840.114 [id number] Univers 00:00:00 00:00:00 Secure Msg Vijay HEALTH 350.1.13.10 ity of [place] 4.2.7.2.686 [place] TOÑO?BLEA [phone] Ca whit [place] 044 [facility] 2021-08-25 2021-08-25 Telephone [facility] 1.2.840.114 [id number] Univers 00:00:00 00:00:00 Dania L HEALTH 350.1.13.10 it y of [place] 4.2.7.2.686 [place] TOÑO?BLEA [phone] Ca whit [place] [address] [place] [facility] 2021-08-25 2021-08-25 Patient [facility] 1.2.840.114 [id number] Univers 00:00:00 00:00:00 Secure Msg Vijay HEALTH 350.1.13.10 ity of [place] 4.2.7.2.686 [place] TOÑO?BLEA [phone] Ca whit [place] [address] [place] [facility] 2021-08-24 2021-08-24 Telephone [facility] 1.2.896.202 [id number] Univers 00:00:00 00:00:00 Vijay HEALTH 350.1.13.10 it y of [place] 4.2.7.2.686 [place] TOÑO?BLEA [phone] Me whit [place] [address] [place] [address] MEDICAL OFFICE BUILDING 2021-08-24 2021-08-24 Patient Juan [facility] 1.2.840.114 [id number] Univers 00:00:00 00:00:00 Secure Msg Vijay HEALTH 350.1.13.10 ity of [place] 4.2.7.2.686 [place] TOÑO?BLEA [phone] Me whit [place] [address] [place] [address] [facility] 2021-08-23 2021-08-23 Patient Juan [facility] 1.2.840.114 [id number] Univers 00:00:00 00:00:00 Secure Msg Vijay HEALTH 350.1.13.10 ity of [place] 4.2.7.2.686 [place] TOÑO?BLEA [phone] Ca whit [place] [address] [place] [address] [facility] 2021-08-23 2021-08-23 Telephone [facility] 1.2.803.685 [id number] Univers 00:00:00 00:00:00 Vijay HEALTH 350.1.13.10 it y of [place] 4.2.7.2.686 [place] as TOÑO?BLEA [phone] Ca whit [place] [address] [place] [address] [facility] 2021-08-22 2021-08-22 [facility]phone [facility] 1.2.983.180 [id number] Univers 00:00:00 00:00:00 Vijay HEALTH 350.1.13.10 it y of [place] 4.2.7.2.686 [place] as TOÑO?BLEA [phone] Ca whit [place] [address] [place] [address] [facility] 2021-08-22 2021-08-22 Patient Jaja [facility] 1.2.840.114 [id number] Univers 00:00:00 00:00:00 Secure Msg Hallie HEALTH 350.1.13.10 ity of [place] 4.2.7.2.686 [place] as TOÑO?BLEA [phone] Ca whit [place] [address] [place] [address] [facility] 2021-08-18 2021-08-18 Telephone [facility] 1.2.965.747 [id number] Univers 00:00:00 00:00:00 Vijay HEALTH 350.1.13.10 it y [facility] 4.2.7.2.686 [place] TOÑO?BLEA [phone] Ca whit [place] 044 [facility] 2021-08-17 2021-08-17 Outpatient Farzana MIXON [facility] [id number] Univers 09:00:00 09:00:00 CELINA ankush [facility] 2021-08-17 2021-08-17 Outpatient [facility] [id number] Univers 09:00:00 09:00:00 CELINA [facility] 2021-08-16 2021-08-16 Patient [facility] 1.2.840.114 [id number] Univers 00:00:00 00:00:00 Secure Msg Vijay HEALTH 350.1.13.10 ity of [place] 4.2.7.2.686 [place] as TOÑO?BLEA [phone] Ca whit [place] 044 [facility] 2021-08-15 2021-08-15 Office [facility] 1.2.840.114 [id number] Univers 15:30:00 16:16:42 Visit [facility] HEALTH 350.1.13.10 it y of [place] 4.2.7.2.686 [place] TOÑO?BLEA [phone] Ca whit [place] 198 [facility] 2021-08-15 2021-08-15 Outpatient Farzana KIM [facility] [id number] Univers 15:30:00 16:16:42 [facility] 2021-08-15 Outpatient Fazrana KIM [facility] [id number] Univers 15:30:00 15:30:00 ADÁN [facility] 2021-08-15 2021-08-15 Outpatient Farzana KIM [facility] [id number] Univers 15:30:00 15:30:00 ADÁN [facility] 2021-08-15 2021-08-15 Outpatient [facility]ana [facility] [id number] Univers 15:30:00 15:30:00 ADÁN ity [facility] 2021-08-15 2021-08-15 Emergency Aj SAMAYOA [facility] ERT [id number] Univers 09:27:00 12:26:00 MAURA lechuga [facility] 2021-08-15 2021-08-15 Emergency Danita [facility] 1.2.010.784 [id number] Univers 09:27:00 12:26:00 Maura LAWSON 350.1.13.10 ity of [place] 4[place]2.7.2.686 [place] [facility] [id number] [address] 2021-08-15 2021-08-15 Emergency Aj SAMAYOA [facility] ERT [id number] Univers 09:27:00 12:26:00 MAURA lechuga [facility] 2021-08-14 2021-08-14 Outpatient R JUAN [facility] [id number] Univers 13:25:00 23:59:00 VIJAY lechuga [facility] 2021-08-14 2021-08-14 Outpatient R JUAN [facility] [id number] Univers 13:25:00 23:59:00 VIJAY lechuga [facility] 2021-08-14 2021-08-14 Outpatient R JUAN [facility] [id number] Univers 13:25:00 13:25:00 VIJAY lechuga [facility] 2021-08-14 2021-08-14 Outpatient R JUAN [facility] [id number] Univers 12:19:07 13:24:00 VIJAY lechuga [facility] 2021-08-14 2021-08-14 Outpatient R JUAN [facility] [id number] Univers 12:19:07 13:24:00 VIJAY lechuga [facility] 2021-08-14 2021-08-14 [employer], Ang - Db [facility] 1.2.840.1 14 [id number] Univers 12:30:00 13:01:24 Visit Vijay Martinez 350.1.13.10 ity of [place] 4.2.7.2.686 [place] as TOÑO?BLEA [phone] Ca alessandra[address] MEDICAL OFFICE BUILDING 2021-08-14 2021-08-14 [employer], Ang - Db [facility] 1.2.840.1 14 [id number] Univers 12:30:00 12:45:00 Visit Vijay Martinez 350.1.13.10 ity of [place] 4.2.7.2.686 [place] as TOÑO?BLEA [id number] Ca whit [place] 353 [facility] 2021-08-14 2021-08-14 Office [facility] 1.2.840.114 [id number] Univers 11:30:00 12:31:12 Visit Vijay [facility] 350.1.13.10 it y of [place] 4.2.7.2.686 [place] as TOÑO?BLEA [id number] Ca whit OCASIO[address] [facility] 2021-08-14 2021-08-14 [facility] [id number] Univers 11:30:00 12:31:12 VIJAY lechuga [facility] 2021-08-14 2021-08-14 [facility] 1.2.840.114 [id number] Univers 00:00:00 00:00:00 Secure Msg Vijay [employer] 350.1.13.10 ity of [place] 4.2.7.2.686 [place] as TOÑO?BLEA [id number] [address] 2021-08-09 2021-08-09 Outpatient R JUDY [facility] [id number] Univers 14:45:00 14:45:00 ADÁN ity [facility] 2021-08-09 2021-08-09 Telephone [facility] 1.2.535.813 [id number] Univers 00:00:00 00:00:00 Vijay [employer] 350.1.13.10 it y of [place] 4.2.7.2.686 [place] as TOÑO?BLEA [phone] [facility] [address] [facility] 2021-08-08 2021-08-08 Outpatient [facility] [id number] Univers 11:30:00 23:59:00 VIJAY lechuga [facility] 2021-08-08 2021-08-08 [facility] 1.2.840.114 [id number] Univers 11:30:00 23:59:00 Encounter Vijay PETTY 350.1.13.10 ity of [place] 4.2.7.2.686 [place] as TOÑO?BLEA [id number] Ca alessandraaliyah [place] 8[address] [facility] 2021-08-08 2021-08-08 Outpatient [facility] [id number] Univers 11:15:00 11:15:00 VIJAY lechuga [facility] 2021-08-08 2021-08-08 Out[facility] [id number] Univers 11:00:00 11:00:00 VIJAY lechuga [facility] 2021-08-08 2021-08-08 Patient Doctor ORTEGA 1.2.840.114 [id number] Univers 00:00:00 00:00:00 Secure Msg Unassigned, YAZMIN 350.1.13.10 ity of [place] [facility] 4.2.7.2.686 [place] as [phone] [address] 2021-08-07 2021-08-07 Office [facility] 1.2.840.114 [id number] Univers 09:30:00 10:23:21 Visit Vijay PETTY 350.1.13.10 it y of [place] 4.2.7.2.686 [place] as TOÑO?BLEA [id number] Ca alessandraaliyah OCASIO 044 [facility] 2021-08-07 2021-08-07 Outpatient [facility] [id number] Univers 09:30:00 10:23:21 VIJAY lechuga [facility] 2021-08-07 2021-08-07 Outpatient [facility] [id number] Univers 09:30:00 09:30:00 VIJAY lechuga [facility] 2021-08-07 2021-08-07 [facility] 1.2.840.114 [id number] Univers 00:00:00 00:00:00 Secure Msg Vijay HEALTH 350.1.13.10 ity [facility] 4.2.7.2.686 [place] TOÑO?BLEA [phone] Ca whit [address] [facility] 2021-08-07 2021-08-07 Patient Juan [facility] 1.2.840.114 [id number] Univers 00:00:00 00:00:00 Secure Msg Vijay HEALTH 350.1.13.10 ity of [place] 4.2.7.2.686 [place] as TOÑO?BLEA [id number] [address] [facility] 2021-08-07 2021-08-07 Patient Apurva [facility] 1.2.840.114 [id number] Univers 00:00:00 00:00:00 Secure Msg Celina RAMIREZTANY 350.1.13.10 ity of [facility] 4.2.7.2.686 [place] [phone] [address] 2021-08-04 2021-08-04 Outpatient R SHADIA [facility] [id number] Univers 10:00:00 10:00:00 PETRA ity [facility] 2021-08-04 2021-08-04 Patient Juan [facility] 1.2.840.114 [id number] Univers 00:00:00 00:00:00 Secure Msg Vijay HEALTH 350.1.13.10 ity of [place] 4.2.7.2.686 [place] as TOÑO?BLEA [id number] [address] [facility] 2021-08-03 2021-08-03 Office SOURAV Diaz 1.2.840.114 [id number] Univers 11:00:00 12:48:43 Visit Jayy Dowling 350.1.13.10 it y of [facility] 4.2.7.2.686 Martin as BANK [phone] [facility]. [address] 2021-08-03 2021-08-03 Outpatient R EMILY [facility] [id number] Univers 11:00:00 12:48:43 JAYY lechuga [facility] 2021-08-03 2021-08-03 Outpatient R EMILY [facility] [id number] Univers 11:00:00 11:00:00 JAYY lechuga [facility] 2021-08-03 2021-08-03 [facility] 1.2.840.114 [id number] Univers 00:00:00 00:00:00 Secure Mslaila SAM 350.1.13.10 ity of [facility] 4[place].2.686 [place] [id number] [address] 2021-08-02 2021-08-02 [facility] [id number] Univers 00:00:00 00:00:00 Vijay HEALTH 350.1.13.10 it [facility] 4.2.7.2.686 [place] as TOÑO?BLEA [phone] Ca whit OCASIO[address] 2021-07-21 2021-07-21 Outpatient R DARRION WYATT [facility] [id number] Univers 08:00:00 08:52:53 DARRION WYATT [facility] 2021-07-17 2021-07-17 Outpatient R JUAN [facility] [id number] Univers 11:30:00 11:30:00 VIJAY [facility] 2021-06-19 2021-06-19 [facility] [id number] Univers 00:00:00 00:00:00 Vijay PETTY 350.1.13.10 it y of [place] 4.2.7.2.686 [place] as TOÑO?BLEA [phone] Ca alessandra[address] 2021-06-09 2021-06-09 [facility]phone [facility] [id number] Univers 00:00:00 00:00:00 Reji LULU 350.1.13.10 it[place] [phone] Ca whit TORRES 059 [facility] 2021-06-06 2021-06-06 Outpatient Farzana CARNES [facility] [id number] Univers 11:15:00 11:15:00 TETO lechuga [facility] 2021-06-06 2021-06-06 Outpatient Farzana CARNES [facility] [id number] Univers 11:15:00 11:15:00 TETO lechuga [facility] 2021-06-02 2021-06-02 Outpatient R CRISTINA [facility] [id number] Univers 15:45:00 15:45:00 WONDIFUL ity o f [facility] 2021-05-31 2021-05-31 Outpatient R JUAN [facility] [id number] Univers 10:00:00 10:46:31 VIJAY lechuga [facility] 2021-05-31 2021-05-31 Office [facility] 1.2.840.114 [id number] Univers 10:00:00 10:46:31 Visit Vijay HEALTH 350.1.13.10 it y of [place] 4.2.7.2.686 [place] as TOÑO?BLEA [phone] [facility] 044 [facility] 2021-05-31 2021-05-31 Outpatient R VÍCTORKassanrda [facility] [id number] Univers 10:00:00 10:46:31 VIJAY lechuga [facility] 2021-05-31 2021-05-31 Orders Doctor JORDAN 1.2.840.114 [id number] Univers 00:00:00 00:00:00 Only Unassigned, YAZMIN 350.1.13.10 ity of [place] [facility] 4.2.7.2.686 Martin as [phone] [address] 2021-05-26 2021-05-26 Telephone Yaneli [facility] 1.2.842.559 [id number] Univers 00:00:00 00:00:00 Skylar A HEALTH 350.1.13.10 i ty of [place] 4.2.7.2.686 Martin as TOÑO?BLEA [phone] [facility] 044 [facility] 2021-05-26 2021-05-26 Patient Prasanna Vargas [facility] 1.2.864.590 [id number] Univers 00:00:00 00:00:00 Secure Msg Cam [facility] 350.1.13.10 ity of [place] [phone] Me dical NAL 134 [facility] 2021-05-25 2021-05-25 Telemedici [facility] 1.2.840.114 [id number] Univers 14:00:00 14:30:00 ne Visit Skylar Cannon [facility] 350.1.13.10 ity of [place] 4.2.7.2.686 [place] as TOÑO?BLEA [phone] Ca alessandraaliyah KNEY 044 [facility] 2021-05-25 2021-05-25 Out[facility] [id number] Univers 14:00:00 14:00:00 SKYLAR itchino [facility] 2021-05-25 2021-05-25 Outpatient [facility] [id number] Univers 14:00:00 14:00:00 SKYLAR [facility] 2021-05-24 2021-05-24 [facility] 1.2.676.644 [id number] Univers 00:00:00 00:00:00 Rad [place] 350.1.13.10 it[place] of [place] [phone] Ca alessandraaliyah NAL 059 [facility] 2021-05-23 2021-05-23 Outpatient R [facility] [id number] Univers 10:00:00 10:00:00 ity [facility] 2021-05-23 2021-05-23 Outpatient R [facility] [id number] Univers 10:00:00 10:00:00 ity [facility] 2021-05-16 2021-05-16 Outpatient [facility] [id number] Univers 09:00:00 09:00:00 [facility] 2021-[facility]-12 2021-05-12 Orders Doctor ORTEGA 1.2.840.114 [id number] Univers 00:00:00 00:00:00 Only Unassigned, YAZMIN 350.1.13.10 ity of [place] [facility] 4.2.7.2.686 [place] as [phone] [address] 2021-05-10 2021-05-10 Outpatient [facility] [id number] Univers 13:00:00 13:00:00 WONDIFUL ity o f [facility] 2021-05-10 2021-05-10 Outpatient R CRISTINA [facility] [id number] Univers 13:00:00 13:00:00 WONDIFUL ity o f [facility] 2021-05-09 2021-05-09 Telephone Prasanna Vargas [facility] 1.2.840.114 [id number] Univers 00:00:00 00:00:00 Cam LULU 350.1.13.10 i ty [facility] 4.2.7.2.[place] [phone] [facility] 134 [facility] 2021-05-09 2021-05-09 Patient [facility] 1.2.840.114 [id number] Univers 00:00:00 00:00:00 Secure Msg Sendil [facility] [place] 350.1.13.10 ity of [facility] 4.2.7.2.[place] [phone] [place] 467319 [facility] 2021-05-08 2021-05-08 Outpatient R [facility] [id number] Univers 16:00:00 16:00:00 JEDAYANA lechuga [facility] 2021-05-08 2021-05-08 Outpatient R [facility] [id number] Univers 16:00:00 16:00:00 JEDAYANA lechuga [facility] 2021-05-08 2021-05-08 Patient [facility] 1.2.840.114 [id number] Univers 00:00:00 00:00:00 Secure Msg Sendil [facility] [place] 350.1.13.10 ity [facility] 4.2.7.2.[place] [phone] Ca dical NAL 9 [facility] 2021-05-08 2021-05-08 Patient [facility] 1.2.840.114 [id number] Univers 00:00:00 00:00:00 Secure Msg Sendil [facility] [place] 350.1.13.10 ity of [place] 4.2.7.2.[place] [phone] [facility] NAL 059 [facility] 2021-05-03 2021-05-03 Outpatient R ARJUN [facility] [id number] Univers 11:15:36 23:59:00 REJI ity o f [facility] 2021-05-03 2021-05-03 [facility] 1.2.840.114 [id number] Univers 11:15:36 23:59:00 Encounter Reji [place] 350.1.13.10 ity of [place].2.7.2.[place] [phone] [facility] 846 [facility] 2021-05-03 2021-05-03 Telephone [facility] 1.2.840.114 [id number] Univers 00:00:00 00:00:00 Wondiful A HEALTH 350.1.13.10 ity [facility] 4.2.7.2.686 [place] as TOÑO?BLEA [phone] [address] [facility] 2021-05-02 2021-05-02 Telephone [facility] 1.2.782.041 [id number] Univers 00:00:00 00:00:00 Rad [place] 350.1.13.10 ity of [facility] 4.2.7.2.686 [place] [phone] [facility] 059 [facility] 2021-05-02 2021-05-02 Patient [facility] 1.2.840.114 [id number] Univers 00:00:00 00:00:00 Secure Msg Wondiful A HEALTH 350.1.13.10 ity of [place] 4.2.7.2.686 [place] as TOÑO?BLEA [phone] [address] MEDICAL [facility] 2021-05-02 2021-05-02 Telephone [facility] 1.2.840.114 [id number] Univers 00:00:00 00:00:00 Wondiful A HEALTH 350.1.13.10 ity of [place] 4.2.7.2.686 [place] as TOÑO?BLEA [id number] Ca dicaliyah [place] [address] [place] [facility]ICAL [facility] 2021-05-02 2021-05-02 Patient Ponce [facility] 1.2.840.114 [id number] Univers 00:00:00 00:00:00 Secure Msg Rad [place] 350.1.13.10 ity of [place] 4[place].2.[place] [phone] Ca dical NAL 059 [facility] 2021-04-27 2021-04-27 Emergency X [facility] ERT [id number] Univers 14:24:00 15:49:00 MAGGIE ity [facility] 2021-04-27 2021-04-27 Emergency [facility] 1.2.840.114 [id number] Univers 14:24:00 15:49:00 Maggie [place] 350.1.13.10 ity of [place] 4.2.7.2.686 [place] [phone] [facility] [address] [place] 2021-04-27 2021-04-27 Laboratory Only, Ang Db Test [facility] 1.2.8 40.114 [id number] Univers 11:15:00 11:30:00 Only Unknown, Attending HEALTH 350.1.13.10 ity of [place] 4.2.7.2.686 [place] TOÑO?BLEA [id number] Ca whit [place] 370 [facility] 2021-04-27 2021-04-27 Outpatient R SIL [facility] [id number] Univers 11:15:00 11:15:00 THONY ity [facility] 2021-04-27 2021-04-27 Orders Doctor ORTEGA 1.2.840.114 [id number] Univers 00:00:00 00:00:00 Only Unassigned, YAZMIN 350.1.13.10 ity of [place] [facility] 4.2.7.2.686 [place] as [phone] [facility] [address] [place] 2021-04-20 2021-04-20 Outpatient R JUSTINE [facility] [id number] Univers 15:00:00 15:00:00 [facility] 2021-04-13 2021-04-13 Patient Cristina [facility] 1.2.840.114 [id number] Univers 00:00:00 00:00:00 Secure Msg Wondiful A HEALTH 350.1.13.10 ity of [place] 4.2.7.2.686 [place] as TOÑO?BLEA [id number] [address] [facility] 2021-04-12 2021-04-12 Telephone Cristina [facility] 1.2.840.114 [id number] Univers 00:00:00 00:00:00 Wondiful A HEALTH 350.1.13.10 ity of [place] 4.2.7.2.686 Martin as TOÑO?BLEA [id number] [address] 2021-03-27 2021-03-27 Telephone Prasanna Vargas [facility] 1.2.840.114 [id number] Univers 00:00:00 00:00:00 Cam [place] 350.1.13.10 i ty of [place] 4.2.7.2.[place] [phone] [address] 2021-03-23 2021-03-23 Outpatient R KAVYA [facility] [id number] Univers 13:30:00 13:30:00 CHILVANA ity o f [facility] 2021-03-23 2021-03-23 Outpatient R KAVYA [facility] [id number] Univers 13:30:00 13:30:00 CHILVANA ity o f [facility] 2021-03-22 2021-03-22 Outpatient R ADITYA MEEKS [facility] [id number] Univers 09:20:00 09:20:00 ADITYA MEEKS [facility] 2021-03-22 2021-03-22 Outpatient R NEHEMIAH MEEKSALEz [facility] [id number] Univers 09:20:00 09:20:00 ADITYA MEEKS [facility] 2021-03-20 2021-03-20 Outpatient R CRISTINA [facility] [id number] Univers 00:00:00 00:00:00 WONDIFUL ity o f [facility] 2021-03-18 2021-03-18 Case [facility] 1.2.840.114 [id number] Univers 00:00:00 00:00:00 Management Wondiful A HEALTH 350.1.13.10 ity of [place] 4.2.7.2.686 [place] TOÑO?BLEA [phone] Ca whit [place] [address] [place] [address] [facility]ICAL [facility] 2021-03-16 2021-03-16 Corporate Legal Intern Lab, Ang - Db [facility] 1.2.840.1 14 [id number] Univers 11:16:07 11:31:07 Visit Claudette Evans HEALTH 350.1.13.1 0 ity of [place] 4.2.7.2.686 [place] as TOÑO?BLEA [phone] Ca whit [place] 353 [facility] 2021-03-16 2021-03-16 Outpatient [facility] [id number] Univers 11:30:00 11:30:00 WONDIFUL ity o f [facility] 2021-03-16 2021-03-16 Outpatient [facility] [id number] Univers 11:00:00 11:14:45 WONDIFUL ity o f [facility] 2021-03-16 2021-03-16 Office [facility] 1.2.840.114 [id number] Univers 10:00:58 11:14:45 Visit Wonlgful A HEALTH 350.1.13.10 ity of [place] 4.2.7.2.686 [place] as TOÑO?BLEA [phone] Ca whit [place] [address] [place] [address] [facility] 2021-03-16 2021-03-16 Patient [facility] 1.2.840.114 [id number] Univers 00:00:00 00:00:00 Secure Msg Wondiful A HEALTH 350.1.13.10 ity of [place] 4.2.7.2.686 [place] as TOÑO?BLEA [phone] Ca whit [place] [address] [place] [address] [facility] 2021-03-02 2021-03-02 Outpatient R CRISTINA [facility] [id number] Univers 16:15:00 16:15:00 WONDIFUL ity o f [facility] 2021-02-28 2021-02-28 Outpatient [facility] [id number] Univers 18:30:00 18:30:00 ILEANA lechuga [facility] 2021-02-28 2021-02-28 Telephone [facility] 1.2.840.114 [id number] Univers 00:00:00 00:00:00 Wondiful A Health 350.1.13.10 ity of [place] 4.2.7.2.686 Martin as Toño?Blea [phone] [facility] 044 [facility] Office [facility] 2021-02-27 2021-02-27 Outpatient R STEPHANY [facility] [id number] Univers 09:00:00 09:00:00 AMELIA lechuga [facility] 2021-02-23 2021-02-23 Telephone [facility] 1.2.840.114 [id number] Univers 00:00:00 00:00:00 Wondiful A Health 350.1.13.10 ity of [place] 4.2.7.2.686 [place] as Toño?Blea [phone] [facility] 044 [facility] Office [facility] 2021-02-10 2021-02-10 Emergency Kaycee Méndez [facility] 1.2.840.114 [id number] Univers 18:12:00 23:39:00 Sharlene [place] 350.1.13.10 i ty of [place].2.7.2.686 [place] [id number] [facility] [address] [place] 2021-02-09 2021-02-09 [facility] 1.2.271.606 [id number] Univers 13:40:00 23:59:00 Encounter Wondiful A Health 350.1.13.10 ity of [place] 4.2.7.2.686 [place] as Toño?Blea [phone] [facility] [address] [place] Medical Office [facility] 2021-02-09 2021-02-09 Corporate Legal Intern Lab, Ang - Db [facility] 1.2.840.1 14 [id number] Univers 13:49:05 14:04:05 Visit Claudette [facility] 350.1.13.1 0 ity of [place] 4.2.7.2.686 [place] as Toño?Blea [phone] Ca whit ocasio [address] [place] Medical Office [facility] 2021-02-09 2021-02-09 Office [facility] 1.2.840.114 [id number] Univers 12:23:13 13:47:12 Visit Claudette A Health 350.1.13.10 ity of [place] 4.2.7.2.686 [place] as Toño?Blea [phone] [address] Office [facility] 2021-02-09 2021-02-09 Outpatient R CRISTINA [facility] [id number] Univers 13:00:00 13:00:00 WONDIFUL ity o f [facility] 2021-02-08 2021-02-08 Outpatient R ADITYA MEEKS [facility] [id number] Univers 10:20:00 10:20:00 ADITYA MEEKS [facility] 2021-02-02 2021-02-02 Outpatient R YANELI [facility] [id number] Univers 10:30:00 10:30:00 SKYLAR chino [facility] 2021-02-02 2021-02-02 Telephone [facility] 1.2.840.114 [id number] Univers 00:00:00 00:00:00 Claudette A Health 350.1.13.10 ity of [place] 4.2.7.2.686 [place] as Toño?Blea [phone] [address] Office [facility] 2021-02-01 2021-02-01 Outpatient R YANELI [facility] [id number] Univers 08:30:00 08:30:00 SKYLAR [facility] 2021-01-31 2021-01-31 Urgent [facility] 1.2.840.114 [id number] Univers 18:44:04 19:41:26 Care [facility] 350.1.13.10 i ty of [place] 4.2.7.2.686 [place] as Toño?Blea [phone] Ca dicaliyah [place] [address] [place] Medical Office [facility] 2021-01-31 2021-01-31 Outpatient R OLIVER [facility] [id number] Univers 19:00:00 19:00:00 FLACO lechuga o f [facility] 2021-01-31 2021-01-31 Telephone [facility] 1.2.840.114 [id number] Univers 00:00:00 00:00:00 Wondiful A Health 350.1.13.10 ity of [place] 4.2.7.2.686 [place] as Toño?Blea [phone] [facility] 044 [facility] Office [facility] 2021-01-30 2021-01-30 Telephone [facility] 1.2.038.492 [id number] Univers 00:00:00 00:00:00 Sendil Cuate [place] 350.1.13.10 ity of [place].2.686 [place] [phone] Ca whit nal 059 [facility] 2021-01-26 2021-01-26 [facility] [id number] Univers 14:00:00 14:00:00 SENDIL ankush [facility] 2021-01-25 2021-01-25 Outpatient R [facility] [id number] Univers 15:00:00 15:00:00 ity [facility] 2021-01-20 2021-01-20 Telemedici [facility] ..840.114 [id number] Univers 16:51:22 17:12:41 ne Visit Skylar A Health 350.1.13.10 ity of [place] 4.2.7.2.686 [place] as Toño?Blea [phone] Ca dicaliyah [place] 044 [facility] Office [facility] 2021-01-20 2021-01-20 Outpatient [facility] [id number] Univers 16:30:00 16:30:00 SKYLARLEE lechuga [facility] 2021-01-19 2021-01-19 Outpatient [facility] [id number] Univers 10:15:00 10:15:00 KAYLEY ity [facility] 2021-01-14 2021-01-14 JORDAN Guzman 1.2.840.114 [id number] Univers 00:00:00 00:00:00 Management Kassandra ARCE 350.1.13.10 ity of [facility] 4.2.7.2.686 [place] as [phone] [facility] [address] 2021-01-12 2021-01-12 Emergency [facility] 1.2.758.639 [id number] Univers 16:10:00 19:45:00 Karin [place] 350.1.13.10 i ty [facility] 4.2.7.2.[place] [phone] [facility] [address] [place] 2021-01-12 2021-01-12 Outpatient Farzana [facility] [id number] Univers 15:20:00 15:20:00 ILEANA [facility] 2021-01-12 2021-01-12 Urgent Thony Johnson [facility] 1.2.840.114 [id number] Univers 14:46:57 15:06:57 [facility] 350.1.13.10 ity [facility] 4.2.7.2.686 [place] Toño?Blea [id number] [facility] [address] [place] Medical Office Building 2020-12-26 2020-12-26 Outpatient Farzana [facility] [id number] Univers 15:30:00 16:13:32 SENDIL ankush [facility] 2020-12-26 2020-12-26 [facility] 1.2.840.114 [id number] Univers 15:30:00 16:13:32 Visit Rad [place] 350.1.13.[address] [facility] 4.2.7.2.686 [place] [facility] [phone] Ca whit [facility] [address] BUILDING 2020-12-26 2020-12-26 Office [facility] 1.2.840.114 [id number] Univers 15:00:32 16:13:32 Visit Sendil [place]uate [place] [facility].13.10 [facility] 4.2.7.2.686 Terrie dailey Professio [phone] Ca dical nal 059 [address] Building 2020-12-26 2020-12-26 Outpatient R PONCE, [facility] [id number] Univers 15:30:00 15:30:00 SENDIL itchino [facility] 2020-11-22 2020-11-22 Outpatient [facility] [id number] Univers 11:00:00 11:00:00 CELINA lechuga [facility] 2020-11-10 2020-11-10 Urgent Dennis Alissa [facility] 1.2.840.114 [id number] 18:42:46 19:53:43 Care [facility] 350.1.13.10 [place] 4.2.7.2.686 Professio [phone] nal 0[address] 2020-11-10 2020-11-10 Outpatient R [facility] [id number] Univers 19:00:00 19:00:00 ity [facility] 2020-10-31 2020-10-31 Emergency Kaycee Méndez [facility] 1.2.840.114 [id number] 18:52:00 22:15:00 Sharlene [place] 350.1.13.10 [place] 4.2.7.2.686 [place] [id number] [id number] 2020-10-31 2020-10-31 Outpatient R [facility] [id number] Univers 19:00:00 19:00:00 BEBA lechuga o f [facility] 2020-10-31 2020-10-31 Orders Doctor JORDAN 1.2.840.114 [id number] 00:00:00 00:00:00 Only Unassigned, YAZMIN 350.1.13.10 [place] [facility] 4.2.7.2.686 [id number] 2020-10-20 2020-10-20 Emergency Kaycee Méndez [facility] 1.2.840.114 [id number] 14:02:00 17:13:00 Sharlene [place] 350.1.13.10 [place] 4.2.7.2.686 [place] [id number] 084 2020-10-14 2020-10-14 Hospital Prasanna Vargas [facility] 1.2.840.114 [id number] 10:00:00 23:59:00 Encounter Jm [place] 350.1.13.10 [place] 4.2.7.2.686 [place] [id number] 2020-10-14 2020-10-14 Outpatient Farzana MIXON [facility] [id number] Univers 13:30:00 13:30:00 CELINA [facility] 2020-10-09 2020-10-09 Emergency [facility] 1.2.421.258 [id number] 12:00:00 15:57:00 Anna [place] 350.1.13.10 [place] 4.2.7.2.686 [place] [id number] 4 2020-10-06 2020-10-06 Office Orlando Vargasen [facility] 1.2.730.502 [id number] 08:53:00 09:46:44 Visit Jm [place] 350.1.13.10 [place] 4.2.7.2.686 Professio [phone] nal 134 Building 2020-10-06 2020-10-06 Outpatient PRASANNA LOOMIS [facility] [id number] Univers 09:30:00 09:30:00 [facility] 2020-10-04 2020-10-04 Outpatient Farzana MIXNO [facility] [id number] Univers 14:00:00 14:00:00 CELINA chino [facility] 2020-09-30 2020-09-30 Outpatient Farzana MIXON [facility] [id number] Univers 10:30:00 10:30:00 CELINA [facility] 2020-09-29 2020-09-29 Outpatient Farzana SHAY [facility] [id number] Univers 13:45:00 13:45:00 PREET [facility] 2020-09-06 2020-09-06 Outpatient PRASANNA LOOMIS [facility] [id number] Univers 15:30:00 15:30:00 [facility] 2020-09-02 2020-09-02 Outpatient R DARRION WYATT [facility] [id number] Univers 15:40:00 15:40:00 DARRION WYATT [facility] 2020-08-31 2020-08-31 Outpatient R PONCE [facility] [id number] Univers 10:30:00 10:30:00 [facility] 2020-08-18 2020-08-18 Outpatient R PRASANNA VARGAS [facility] [id number] Univers 09:30:00 09:30:00 ity [facility] 2020-08-11 2020-08-11 Outpatient R ALICIA PRASANNA [facility] [id number] Univers 13:30:00 13:30:00 [facility] 2020-08-04 2020-08-04 Outpatient R JUSTINE [facility] [id number] Univers 14:00:00 14:00:00 [facility] 2020-07-28 2020-07-28 Outpatient R PONCE [facility] [id number] Univers 10:30:00 10:30:00 [facility] 2020-06-30 2020-06-30 Outpatient Farzana EVANS [facility] [id number] Univers 16:15:00 16:15:00 WONDIFUL ity o f [facility] 2020-06-17 2020-06-17 Outpatient DARRION QUIROZ [facility] [id number] Univers 15:00:00 15:00:00 DARRION WYATT [facility] 2020-06-16 2020-06-16 Outpatient R PONCE [facility] [id number] Univers 15:30:00 15:30:00 [facility] 2020-06-09 2020-06-09 Outpatient NI YUNG [facility] [id number] Univers 12:30:00 12:30:00 ity [facility] 2020-06-08 2020-06-08 Outpatient NI YUNG [facility] [id number] Univers 08:00:00 08:00:00 ity [facility] 2020-06-02 2020-06-02 Outpatient R PONCE [facility] [id number] Univers 09:00:00 09:00:00 SENDIL [facility] 2020-05-28 2020-05-28 Outpatient R NATASHA, [facility] [id number] Univers 10:00:00 10:00:00 BEBA ity o f [facility] 2020-05-24 2020-05-24 Outpatient R NI DISLA [facility] [id number] Univers 10:00:00 10:00:00 [facility] 2020-05-19 2020-05-19 Outpatient R OSITO HITCHCOCK [facility] [id number] Univers 16:30:00 16:30:00 [facility] 2020-05-17 2020-05-17 Outpatient R DARRION WYATT [facility] [id number] Univers 13:00:00 13:00:00 DARRION WYATT [facility] 2020-05-16 2020-05-16 Outpatient R CRISTINA [facility] [id number] Univers 16:00:00 16:00:00 WONDIFUL ity o f [facility] 2020-05-08 2020-05-08 Emergency X VIRGIE [facility] ERT [id number] Univers 10:24:00 13:03:00 OLAMIDE [facility] 2020-05-03 2020-05-03 Outpatient R CRISTINA [facility] [id number] Univers 15:00:00 15:00:00 WONDIFUL ity o f [facility] 2020-04-30 2020-05-01 Outpatient X KAVYA [facility] JOSÉ MANUEL [id number] Univers 11:14:00 15:50:00 RODRIGUEZ [facility] 2020-04-30 2020-04-30 Outpatient R JASPAL [facility] [id number] Univers 10:20:00 10:20:00 ROSALES [facility] 2020-04-30 2020-04-30 Outpatient R JASPAL [facility] [id number] Univers 10:15:00 [facility]15[facility] 2020-04[facility]28 Outpatient R LAUREN HITCHCOCKSIR [facility] [id number] Univers 14:00[facility]00 [facility] 2020-04-25 Outpatient R CRISTINA, [facility] [id number] Univers 16:15:00 16:15:00 WONDIFUL ity o f [facility] 2020-04-18 2020-04-18 Outpatient R CORETTAOSITO [facility] [id number] Univers 10:00:00 10:00:00 ity [facility] 2020-04-15 2020-04-15 Outpatient R PONCE [facility] [id number] Univers 10:30:00 10:30:00 [facility]12 2020-04-13 Outpatient X DELUNAMARICRUZ [facility] [id number] Univers 13:38:00 16:25:[facility]17 2020-03-17 Outpatient R DEYVI [facility] [id number] Univers 16:15:00 16:15:00 [facility] 2020-03-04 2020-03-04 Refill [facility] [id number] 00:00:00 00:00:00 MULTISPEC [id number] IALTY [id number] CENTER [id number] [facility] 2020-02-25 2020-02-25 Outpatient R CORETTA OSITO [facility] [id number] Univers 16:00[facility]00 [facility] Outpatient R DEYVI [facility] [id number] Univers 14:00[facility]00 [facility]00[facility] 2020-[facility]-08 Outpatient R PRASANNA VARGAS [facility] [id number] Univers 10:30[facility] 2020-02-04 Outpatient R CORETTAJACOBR [facility] [id number] Univers 13:30:00 13:30:00 ity [facility] 2020-01-23 2020-01-23 Outpatient R [facility] [id number] Univers 10:15:00 10:15:00 [facility] 2020-01-21 2020-01-21 Outpatient R OSITO HITCHCOCK [facility] [id number] Univers 13:00:00 [facility]00[facility] 2020-01-14 Outpatient R OSITO HITCHCOCK [facility] [id number] Univers 16:00:00 16:00:00 [facility] 2020-01-05 2020-01-05 Outpatient R PRASANNA VARGAS [facility] [id number] Univers 13:45:00 13:45:00 [facility] 2019-12-03 2019-12-03 Outpatient R AKINSIPE, [facility] [id number] Univers 10:30:00 10:30:00 CRICKET ity o f [facility] 2019-11-27 2019-11-27 Outpatient R VANAPHAN, [facility] [id number] Univers 11:00:00 11:00:00 [facility] 2019-11-25 2019-11-25 Outpatient R VANAPHAN, [facility] [id number] Univers 08:00:00 08:00:00 [facility] 2019-11-18 2019-11-18 Outpatient R VANAPHAN, [facility] [id number] Univers 10:00:00 10:00:00 [facility] 2019-09-02 2019-09-02 Outpatient R AKINSIPE, [facility] [id number] Univers 11:00:00 11:00:00 CRICKET ity o f [facility] 2019-08-14 2019-08-14 Outpatient R VANAPHAN, [facility] [id number] Univers 10:15:00 10:15:00 [facility] 2019-08-13 2019-08-13 Outpatient R AKINSIPE, [facility] [id number] Univers 11:00:00 11:00:00 CRICKET ity o f [facility] 2019-08-12 2019-08-12 Outpatient R [facility] [id number] Univers 09:00:00 09:00:00 [facility] 2019-07-20 2019-07-20 Outpatient PRASANNA HERRERA [facility] CHRIS [id number] Univers 16:06:00 16:06:00 [facility] 2019-07-20 2019-07-20 Outpatient R BRANDON [facility] [id number] Univers 08:15:00 08:15:00 CRICKET ity o f [facility] 2019-07-13 2019-07-13 Outpatient R BRANDON [facility] [id number] Univers 08:00:00 08:00:00 CRICKET ity o f [facility] 2019-07-12 2019-07-12 Outpatient P PRASANNA VARGAS [facility] [id number] Univers 13:39:00 13:39:00 [facility] 2019-07-06 2019-07-06 Outpatient R BRANDON [facility] [id number] Univers 13:00:00 13:00:00 CRICKET lechuga o [facility] 2019-06-13 2019-06-13 Emergency X MARGARITA [facility] ERT [id number] Univers 10:40:46 12:35:00 WATHEALI [facility] 2019-05-13 2019-05-14 Outpatient PRASANNA HERRERA [facility] [id number] Univers 23:07:00 09:15:00 [facility] Results Test Description Test Time Test Comments Results Result Comments Source COMP. METABOLIC PANEL (45615) 2022-05-05 19:35:37 Test Item Value Reference Range Interpretation Comme nts NA (test code = 1131065475) 139 mmol/L 135-145 K (test code = 7066901288) 4.4 mmol/L 3.5-5.0 CL (test code = 0668399902) 104 mmol/L 98-108 CO2 TOTAL (test code = 4279824872) 22 mmol/L 23-31 L AGAP (test code = 4716209897) 2-16 BUN (test code = 1770745462) 11 mg/dL 7-23 GLUCOSE (test code = 4587229335) 95 mg/dL 70-110 CREATININE (test code = 0.71 mg/dL 0.50-1.04 1439500898) TOTAL BILI (test code = 0.4 mg/dL 0.1-1.3 4395171936) CALCIUM (test code = 2713014791) 9.1 mg/dL 8.6-10.6 T PROTEIN (test code = 7869089529) 7.9 g/dL 6.3-8.2 ALBUMIN (test code = 3265440680) 4.7 g/dL 3.5-5.0 ALK PHOS (test code = 6409901795) 114 U/L 34-122 ALTv (test code = 1742-6) 21 U/L 5-35 AST(SGOT) (test code = 0686499893) 21 U/L 13-40 eGFR (test code = 8167303613) mL/min/1.73m2 WESLEY (test code = WESLEY) Association [...] tests). Lab Interpretation (test code = Abnormal 73202-7Formerly [facility] WITH [id number] 19:25:37 Test Item Value Reference Range Interpretation [...] RDW-SD (test code = 41.7 fL 39.0-49.9 29134-2) RDW-CV (test code = 12.7 % 12.0-15.5 788-0) PLT (test code = See_Comment H [Automated 777-3) message] The sy stem which generated this result transmitted reference range : 166 - 358 10*3/ ?L. The reference r david was not used to interpret this result as normal/abnormal . MPV (test code = 8.8 fL 9.5-12.9 L 14695-7) NRBC/100 WBC (test See_Comment [Automat ed code = 5364240079) message] The system which generated this result transmitted reference range : 0.0 - 10.0 /100 WBCs. The refer ence range was not u sed to interpret th is result as normal/abnormal . NRBC x10^3 (test code See_Comment [Auto mated = 7008577493) message] The s ystem which generated this result transmitted reference range : 10*3/?L. The reference range was not used to interpret this result as normal/abnormal . GRAN MAT (NEUT) % 56.1 % (test code = 770-8) IMM GRAN % (test code 0.40 % = 0807020488) LYMPH % (test code = 29.9 % 736-9) MONO % (test code = 5.4 % 5905-5) EOS % (test code = 7.8 % 713-8) BASO % (test code = 0.4 % 706-2) GRAN MAT x10^3(ANC) 3.75 10*3/uL 1.88-7.09 (test code = 0674141000) IMM GRAN x10^3 (test 0.03 10*3/uL 0.00-0.06 code = 8517848807) LYMPH x10^3 (test code 2.00 10*3/uL 1.32-3.29 = 731-0) MONO x10^3 (test code 0.36 10*3/uL 0.33-0.92 = 742-7) EOS x10^3 (test code = 0.52 10*3/uL 0.03-0.39 H 711-2) BASO x10^3 (test code 0.03 10*3/uL 0.01-0.07 = 704-7) Lab Interpretation Abnormal (test code = 22544-6) [id number] 19:00:00 Test Item Value Reference Range Interpretation Comments POCT PREG (test code = 1605) negative On board controls acceptable with present C Line (test code = 3574) POCT PREG LOT # (test code = 3575) [id number] POCT PREG TEST DATE (test 08-11-2023 code = 3576) Lab Interpretation (test code = Normal 31742-4) [facility] [id number] 15:21:11 Test Item Value Reference Range Interpretation Comments WBC (test code = See_Comment [Automated 7232-2) message] The sy stem which generated this result transmitted reference range : 4.30 - 11.10 10*3/?L. The reference range was not used to interpret this result as normal/abnormal . RBC (test code = See_Comment [Automated 862-8) message] The sy stem which generated this [...] RDW-SD (test code = 42.6 fL 39.0-49.9 26185-3) RDW-CV (test code = 12.9 % 12.0-15.5 788-0) PLT (test code = See_Comment H [Automated 777-3) message] The sy stem which generated this result transmitted reference range : 166 - 358 10*3/ ?L. The reference r david was not used to interpret this result as normal/abnormal . MPV (test code = 9.1 fL 9.5-12.9 L 72381-3) NRBC/100 WBC (test See_Comment [Automat ed code = 6879729691) message] The system which generated this result transmitted reference range : 0.0 - 10.0 /100 WBCs. The refer ence range was not u sed to interpret th is result as normal/abnormal . NRBC x10^3 (test code See_Comment [Auto mated = 3642244389) message] The s ystem which generated this result transmitted reference range : 10*3/?L. The reference range was not used to interpret this result as normal/abnormal . GRAN MAT (NEUT) % 56.8 % (test code = 770-8) IMM GRAN % (test code 0.30 % = 2491273313) LYMPH % (test code = 29.5 % 736-9) MONO % (test code = 4.3 % 5905-5) EOS % (test code = 8.3 % 713-8) BASO % (test code = 0.8 % 706-2) GRAN MAT x10^3(ANC) 3.57 10*3/uL 1.88-7.09 (test code = 1831183923) IMM GRAN x10^3 (test 0.00-0.06 code = 2384107766) LYMPH x10^3 (test code 1.85 10*3/uL 1.32-3.29 = 731-0) MONO x10^3 (test code 0.27 10*3/uL 0.33-0.92 L = 742-7) EOS x10^3 (test code = 0.52 10*3/uL 0.03-0.39 H 711-2) BASO x10^3 (test code 0.05 10*3/uL 0.01-0.07 = 704-7) Lab Interpretation Abnormal (test code = 27503-8) [facility]. METABOLIC PANEL (76828)2022-04-26 15:12:13 Test Item Value Reference Range Interpretation Comments NA (test code = 141 mmol/L 135-145 4587660861) K (test code = 3.4 mmol/L 3.5-5.0 L 1352979468) CL (test code = 104 mmol/L 98-108 9669652543) CO2 TOTAL (test code = 23 mmol/L 23-31 7479115870) AGAP (test code = 2-16 3574715249) BUN (test code = 9 mg/dL 7-23 9532267570) GLUCOSE (test code = 101 mg/dL 70-110 8141174276) CREATININE (test code = 0.82 mg/dL 0.50-1.04 3752827283) TOTAL BILI (test code = 0.7 mg/dL 0.1-1.8 3715260701) CALCIUM (test code = 9.3 mg/dL 8.6-10.6 2325761348) T PROTEIN (test code = 8.1 g/dL 6.3-8.2 8295065547) ALBUMIN (test code = 4.7 g/dL 3.5-5.0 6494656109) ALK PHOS (test code = 108 U/L 34-122 4135237431) ALTv (test code = 24 U/L 5-35 1742-6) AST(SGOT) (test code = 49 U/L 13-40 H 0379125353) eGFR (test code = mL/min/1.73m2 2326448476) WESLEY (test code = WESLEY) Association of [...] tests). Lab Interpretation Abnormal (test code = 70085-9) [facility] [id number] 14:45:00 Test Item Value Reference Range Interpretation Comments POCT PREG (test code = 1605) negative On board controls acceptable with present C Line (test code = 3574) POCT PREG LOT # (test code = 3575) [id number] POCT PREG TEST DATE (test 08/11/2023 code = 3576) Lab Interpretation (test code = Normal 92609-9) [facility] [id number] 01:22:00 Test Item Value Reference Range Interpretation Comments POCT PREG (test code = 1605) Negative On board controls acceptable with Present C Line (test code = 3574) POCT PREG LOT # (test code = 3575) [id number] POCT PREG TEST DATE (test 08-11-2023 code = 3576) Lab Interpretation (test code = Normal 24972-7) [facility] METABOLIC PANEL (NA, K, CL, CO2, GLUCOSE, BUN, CREATININE, CA)2022-04-07 23:01:10 Test Item Value Reference Range Interpretation Comments NA (test code = 138 mmol/L 135-145 5291185343) K (test code = 4.3 mmol/L 3.5-5.0 9165578322) CL (test code = 107 mmol/L 98-108 7758742621) CO2 TOTAL (test code = 20 mmol/L 23-31 L 3938484465) AGAP (test code = 2-16 3828880201) BUN (test code = 9 mg/dL 7-23 2662216390) GLUCOSE (test code = 204 mg/dL 70-110 H 3387450687) CREATININE (test code = 0.74 mg/dL 0.50-1.04 4112381502) CALCIUM (test code = 9.1 mg/dL 8.6-10.6 4630038785) eGFR (test code = mL/min/1.73m2 3484816842) WESLEY (test code = WESLEY) Association of [...] tests). Lab Interpretation Abnormal (test code = 48225-5) [facility] WITH [id number] 22:57:34 Test Item Value Reference Range Interpretation Comments WBC (test code = See_Comment [Automated 90-2) message] The sy stem which generated this [...] RDW-SD (test code = 42.9 fL 39.0-49.9 87426-2) RDW-CV (test code = 13.4 % 12.0-15.5 788-0) PLT (test code = See_Comment H [Automated 777-3) message] The sy stem which generated this result transmitted reference range : 166 - 358 10*3/ ?L. The reference r david was not used to interpret this result as normal/abnormal . MPV (test code = 8.9 fL 9.5-12.9 L 85805-0) NRBC/100 WBC (test See_Comment [Automat ed code = 1841117579) message] The system which generated this result transmitted reference range : 0.0 - 10.0 /100 WBCs. The refer ence range was not u sed to interpret th is result as normal/abnormal . NRBC x10^3 (test code See_Comment [Auto mated = 7528180451) message] The s ystem which generated this result transmitted reference range : 10*3/?L. The reference range was not used to interpret this result as normal/abnormal . GRAN MAT (NEUT) % 88.7 % (test code = 770-8) IMM GRAN % (test code 0.70 % = 5479860101) LYMPH % (test code = 9.4 % 736-9) MONO % (test code = 0.9 % 5905-5) EOS % (test code = 0.1 % 713-8) BASO % (test code = 0.2 % 706-2) GRAN MAT x10^3(ANC) 7.81 10*3/uL 1.88-7.09 H (test code = 6189670699) IMM GRAN x10^3 (test 0.06 10*3/uL 0.00-0.06 code = 3969166779) LYMPH x10^3 (test code 0.83 10*3/uL 1.32-3.29 L = 731-0) MONO x10^3 (test code 0.08 10*3/uL 0.33-0.92 L = 742-7) EOS x10^3 (test code = 0.03-0.39 L 711-2) BASO x10^3 (test code 0.01-0.07 = 704-7) Lab Interpretation Abnormal (test code = 09200-6) [facility] [id number] 14:07:00 Test Item Value Reference Range Interpretation Comments POCT PREG (test code = 1605) negative On board controls acceptable with present C Line (test code = 3574) POCT PREG LOT # (test code = 3575) [id number] POCT PREG TEST DATE (test 08/11/2023 code = 3576) Lab Interpretation (test code = Normal 39712-2) [facility] [id number] 13:52:00 Test Item Value Reference Range Interpretation Comments POCT PREG (test code = 1605) negative On board controls acceptable with C present Line (test code = 3574) Lab Interpretation (test code = Normal 56678-6) [facility] [id number] 14:59:00 Test Item Value Reference Range Interpretation Comments POCT PREG (test code = 1605) negative On board controls acceptable with yes C Line (test code = 3574) POCT PREG LOT # (test code = 3575) [id number] POCT PREG TEST DATE (test 07/11/2023 code = 3576) Lab Interpretation (test code = Normal 19336-3) [facility]. METABOLIC PANEL (16122)2022 17:51:43 Test Item Value Reference Range Interpretation Comments NA (test code = 139 mmol/L 135-145 5306085857) K (test code = 4.1 mmol/L 3.5-5 9588433278) CL (test code = 104 mmol/L 98-108 6271199426) CO2 TOTAL (test code = 22 mmol/L 23-31 L 9975845022) AGAP (test code = 2-16 4547386507) BUN (test code = 7 mg/dL 7-23 1173118607) GLUCOSE (test code = 114 mg/dL 70-110 H 2366419506) CREATININE (test code = 0.69 mg/dL 0.5-1.04 7260610677) TOTAL BILI (test code = 0.4 mg/dL 0.1-1.2 2527414399) CALCIUM (test code = 9.7 mg/dL 8.6-10.6 0014392663) T PROTEIN (test code = 7.2 g/dL 6.3-8.2 5984098098) ALBUMIN (test code = 4.6 g/dL 3.5-5 2593615746) ALK PHOS (test code = 65 U/L 34-122 7334999139) ALTv (test code = 15 U/L 5-35 1742-6) AST(SGOT) (test code = 19 U/L 13-40 3516355321) eGFR (test code = mL/min/1.73m2 6895290280) WESLEY (test code = WESLEY) Association of [...] tests). Lab Interpretation Abnormal (test code = 37542-9) [facility] WITH [id number] 17:40:24 Test Item Value Reference Range Interpretation Comments WBC (test code = See_Comment [Automated 1502-2) message] The sy stem which generated this result transmitted reference range : 4.30 - 11.10 10*3/?L. The reference range was not used to interpret this result as normal/abnormal . RBC (test code = See_Comment [Automated 349-0) message] The sy stem which generated this [...] RDW-SD (test code = 43.1 fL 39-49.9 35802-7) RDW-CV (test code = 13.2 % 12-15.5 788-0) PLT (test code = See_Comment [Automated 777-3) message] The sy stem which generated this result transmitted reference range : 166 - 358 10*3/ ?L. The reference r david was not used to interpret this result as normal/abnormal . MPV (test code = 9.5 fL 9.5-12.9 60141-3) NRBC/100 WBC (test See_Comment [Automat ed code = 0576275149) message] The system which generated this result transmitted reference range : 0.0 - 10.0 /100 WBCs. The refer ence range was not u sed to interpret th is result as normal/abnormal . NRBC x10^3 (test code See_Comment [Auto mated = 6417571340) message] The s ystem which generated this result transmitted reference range : 10*3/?L. The reference range was not used to interpret this result as normal/abnormal . GRAN MAT (NEUT) % 57.8 % (test code = 770-8) IMM GRAN % (test code 0.20 % = 6910787581) LYMPH % (test code = 30.8 % 736-9) MONO % (test code = 5.1 % 5905-5) EOS % (test code = 5.6 % 713-8) BASO % (test code = 0.5 % 706-2) GRAN MAT x10^3(ANC) 3.61 10*3/uL 1.88-7.09 (test code = 4974294385) IMM GRAN x10^3 (test 0-0.06 code = 9383030065) LYMPH x10^3 (test code 1.92 10*3/uL 1.32-3.29 = 731-0) MONO x10^3 (test code 0.32 10*3/uL 0.33-0.92 L = 742-7) EOS x10^3 (test code = 0.35 10*3/uL 0.03-0.39 711-2) BASO x10^3 (test code 0.03 10*3/uL 0.01-0.07 = 704-7) Lab Interpretation Abnormal (test code = 77302-0) [facility] [id number] 17:27:00 Test Item Value Reference Range Interpretation Comments POCT PREG (test code = 1605) negative On board controls acceptable with present C Line (test code = 3574) POCT PREG LOT # (test code = 3575) [id number] POCT PREG TEST DATE (test code = 3576) Lab Interpretation (test code = Normal 91158-2) [facility] 12:45:21 Test Item Value Reference Range Interpretation Comments LIPASE (test code = 4409535654) 41 U/L 0-220 Lab Interpretation (test code = Normal 51832-8) [facility] [id number] 10:57:00 Test Item Value Reference Range Interpretation Comments POCT PREG (test code = 1605) Negative On board controls acceptable with Present C Line (test code = 3574) POCT PREG LOT # (test code = 3575) [id number] POCT PREG TEST DATE (test 03/12/2023 code = 3576) Lab Interpretation (test code = Normal 44491-3) [facility] (NA, K, CL, CO2, GLUCOSE, BUN, CREATININE, CA)2022-01-18 10:56:51 Test Item Value Reference Range Interpretation Comments NA (test code = 137 mmol/L 135-145 5815505104) K (test code = 4.6 mmol/L 3.5-5 Slight 7710885673) hemolysis CL (test code = 108 mmol/L 98-108 6744480602) CO2 TOTAL (test code 22 mmol/L 23-31 L = 8450411316) AGAP (test code = 2-16 5088721068) BUN (test code = 11 mg/dL 7-23 Slight 2945828479) hemolysis GLUCOSE (test code = 83 mg/dL 70-110 3448114059) CREATININE (test code 0.68 mg/dL 0.5-1.04 = 6931592215) CALCIUM (test code = 8.8 mg/dL 8.6-10.6 3196651192) eGFR (test code = mL/min/1.73m2 1782324686) WESLEY (test code = WESLEY) Association of [...] tests). Lab Interpretation Abnormal (test code = 78130-5) [facility] (44714[facility] (ALB,T.PRO,BILI T,BU/BC,ALT,AST,ALK PHOS)2022-01-18 10:56:51 Test Item Value Reference Range Interpretation Comments TOTAL BILI (test code = 9567882460) 0.6 mg/dL 0.1-1.1 BILI UNCON (test code = 6656811175) 0.1 mg/dL 0.1-1.1 BILI CONJ (test code = 5042167580) 0.0 mg/dL 0-0.3 T PROTEIN (test code = 3801431542) 8.6 g/dL 6.3-8.2 H ALBUMIN (test code = 0709449119) 5.1 g/dL 3.5-5 H ALK PHOS (test code = 9215328683) 79 U/L 34-122 ALTv (test code = 1742-6) 117 U/L 5-35 H AST(SGOT) (test code = 9857334790) 163 U/L 13-40 H Lab Interpretation (test code = Abnormal 13116-9) [facility], [id number] 10:54:25 Test Item Value Reference Range Interpretation Comments PREG SERUM (test code Negative = 4361758162) WESLEY (test code = WESLEY) Less than 10 IU/L. ?If low titer or ectopic is suspected, resubmit specimen in 48-72 hours. [facility] WITH [id number] 10:40:49 Test Item Value Reference Range Interpretation Comments WBC (test code = See_Comment [Automated 0390-2) message] The sy stem which generated this result transmitted reference range : 4.30 - 11.10 10*3/?L. The reference range was not used to interpret this result as normal/abnormal . RBC (test code = See_Comment [Automated 828-8) message] The sy stem which generated this [...] RDW-SD (test code = 45.3 fL 39-49.9 14177-7) RDW-CV (test code = 14.5 % 12-15.5 788-0) PLT (test code = See_Comment [Automated 787-3) message] The sy stem which generated this result transmitted reference range : 166 - 358 10*3/ ?L. The reference r david was not used to interpret this result as normal/abnormal . MPV (test code = 9.5 fL 9.5-12.9 97692-8) NRBC/100 WBC (test See_Comment [Automat ed code = 5475362569) message] The system which generated this result transmitted reference range : 0.0 - 10.0 /100 WBCs. The refer ence range was not u sed to interpret th is result as normal/abnormal . NRBC x10^3 (test code See_Comment [Auto mated = 6138292626) message] The s ystem which generated this result transmitted reference range : 10*3/?L. The reference range was not used to interpret this result as normal/abnormal . GRAN MAT (NEUT) % 47.6 % (test code = 770-8) IMM GRAN % (test code 0.60 % = 5771737545) LYMPH % (test code = 39.9 % 736-9) MONO % (test code = 5.9 % 5905-5) EOS % (test code = 5.3 % 713-8) BASO % (test code = 0.7 % 706-2) GRAN MAT x10^3(ANC) 4.45 10*3/uL 1.88-7.09 (test code = 6219840405) IMM GRAN x10^3 (test 0.06 10*3/uL 0-0.06 code = 7979330066) LYMPH x10^3 (test code 3.74 10*3/uL 1.32-3.29 H = 731-0) MONO x10^3 (test code 0.55 10*3/uL 0.33-0.92 = 742-7) EOS x10^3 (test code = 0.50 10*3/uL 0.03-0.39 H 711-2) BASO x10^3 (test code 0.07 10*3/uL 0.01-0.07 = 704-7) Lab Interpretation Abnormal (test code = 56432-4) [facility] [id number] 18:31:00 Test Item Value Reference Range Interpretation Comments POCT PREG (test code = 1605) Negative On board controls acceptable with C Yes Line (test code = 3574) POCT PREG LOT # (test code = 3575) POCT PREG TEST DATE (test code = 3576) [facility]/O SPECIFIC [id number] 18:31:00 Test Item Value Reference Range Interpretation [...] code = 3257) Trace Negative - Negative [facility]"
[2022-05-24] MEDS ORDERED: ONDANSETRON 4 MG/2 ML VIAL ONE (08:25)
[2022-05-24] MEDS ORDERED: MORPHINE 4 MG/ML SYR ONE (08:25)
[2022-05-24] MEDS ORDERED: NA CHLORIDE 0.9% 1,000 ML ONE (08:25)
[2022-05-24 08:39] LABS: Urine Blood Trace-intact (Negative); Urine Glucose Negative (Negative); Urine Protein Negative (Negative); Urine pH 6.5 (5.0-7.0)
--- NOTE | 2022-05-24 08:47 | RAD REPORT ---
EXAM DESCRIPTION: RAD - Ankle Right 3 View - 05/24/2022 8:33 am CLINICAL HISTORY: Right ankle pain FINDINGS: No fracture or dislocation is seen.
--- NOTE | 2022-05-24 10:06 | RAD REPORT ---
EXAM DESCRIPTION: CT - Abdomen Pelvis W Contrast - 05/24/2022 9:33 am CLINICAL HISTORY: Abdominal pain/epigastric pain/blunt trauma COMPARISON: 2021 TECHNIQUE: Computed axial tomography of the abdomen pelvis was obtained. 100 cc Isovue-300 was admin istered intravenously. Oral contrast was not requested which limits evaluation of bowel and appendix All CT scans are performed using dose optimization technique as appropriate and may include automated exposure control or mA/KV adjustment according to patient size. FINDINGS: Small bilateral renal calculi. Bilateral extrarenal pelves. The liver, spleen, pancreas and adrenals unremarkable Bladder appears unremarkable Normal appendix. No evidence of diverticulitis. No adnexal mass. No ascites. No hematoma seen IMPRESSION: Small bilateral renal calculi No acute traumatic injury visualized
--- NOTE | 2022-05-24 10:32 | EDPHYS ---
Physician Documentation [facility] Name: Natanael Dyson Age: 27 yrs Sex: Female : 1995 Arrival Date: 05/24/2022 Time: 07:55 Bed 12 Private MD: ED Physician Justin Estrella HPI: 05/24 11:34 This 27 yrs old Female presents to ER via Ambulatory with complaints of Fall Injury, kb Nausea. 11:34 Details of fall: The patient fell from an upright position. Onset: The symptoms/episode kb began/occurred just prior to arrival. Associated injuries: The patient sustained injury to the abdomen, specifically the epigastric area, tenderness, right ankle, ecchymosis, painful injury, swelling. Severity of symptoms: At their worst the symptoms were severe, in the emergency department the symptoms are unchanged. The patient has not experienced similar symptoms in the past. The patient has not recently seen a physician. Pt reports she was walking outside and forgot about the slope so she fell and rolled down. Reports right ankle pain and epigastric pain where something, maybe a stick, stabbed her in the abdomen. 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 - Social history:: Smoking status: Patient denies any tobacco usage or history of. ROS: 11:30 Constitutional: Negative for fever, chills, and weight loss. kb 11:30 Abdomen/GI: Positive for abdominal pain. 11:30 MS/extremity: Positive for pain, swelling, tenderness, of the right ankle. 11:30 All other systems are negative. Exam: 11:33 Constitutional: This is a well developed, well nourished patient who is awake, alert, kb and in no acute distress. Head/Face: Normocephalic, atraumatic. ENT: Moist Mucous membranes Cardiovascular: Regular rate and rhythm with a normal S1 and S2. No gallops, murmurs, or rubs. No pulse deficits. Respiratory: Respirations even and unlabored. No increased work of breathing. Talking in full sentences Skin: Warm, dry with normal turgor. Normal color. Neuro: Awake and alert, GCS 15, oriented to person, place, time, and situation. Moves all extremities. Normal gait. Psych: Awake, alert, with orientation to person, place and time. Behavior, mood, and affect are within normal limits. 11:33 Abdomen/GI: Inspection: abdomen appears normal, Bowel sounds: normal, Palpation: soft, in all quadrants, severe abdominal tenderness, in the epigastric area. 11:33 Musculoskeletal/extremity: Extremities: grossly normal except: noted in the right ankle: ecchymosis, pain, swelling, tenderness, ROM: limited active range of motion due to pain, Circulation is intact in all extremities. Sensation intact. Weight bearing: is unable to bear weight. Vital Signs: 08:01 BP 143 / 99; Pulse 122; Resp 16 S; Temp 97.1(TE); Pulse Ox 97% ; Weight 56.7 kg (R); aa5 Height 5 ft. 1 in. (154.94 cm) (R); 08:55 BP 135 / 85; Pulse 120; Resp 15; Pulse Ox 100% ; Pain 9/10; jl7 10:30 BP 129 / 89; Pulse 103; Resp 15; Pulse Ox 100% ; Pain 5/10; jl7 08:01 Body Mass Index 23.62 (56.70 kg, 154.94 cm) aa5 MDM: 08:03 Patient medically screened. kb 11:32 Differential diagnosis: laceration, multiple trauma, sprain, strain, organ damage from kb blunt trauma. Data reviewed: vital signs, nurses notes. I considered the following discharge prescriptions or medication management in the emergency department I discussed and recommended Over The Counter medications. Test considered but Not performed: Labs: labs considered, but CT normal. Counseling: I had a detailed discussion with the patient and/or guardian regarding: the historical points, exam findings, and any diagnostic results supporting the discharge/admit diagnosis, lab results, radiology results, the need for outpatient follow up, a family practitioner, to return to the emergency department if symptoms worsen or persist or if there are any questions or concerns that arise at home. 05/24 08:40 Order name: Urine Dipstick-Ancillary; Complete Time: 08:43 EDMS 05/24 08:54 Order name: Urine --Ancillary (enter results); Complete Time: 09:08 em1 05/24 08:20 Order name: CT Abd/Pelvis - IV Contrast Only; Complete Time: 10:06 kb 05/24 08:20 Order name: Ankle Right 3 View XRAY; Complete Time: 08:52 kb 05/24 08:20 Order name: IV Start; Complete Time: 08:52 kb 05/24 08:20 Order name: Urine Dipstick-Ancillary (obtain specimen); Complete Time: 08:52 kb 05/24 08:20 Order name: Urine Test (obtain specimen); Complete Time: 08:52 kb 05/24 10:28 Order name: Klaus Wrap; Complete Time: 10:47 kb Administered Medications: 08:45 Drug: NS 0.9% 1000 ml Route: IV; Rate: 1000 ml; Site: left antecubital; jl7 10:10 Follow up: Response: No adverse reaction; IV Status: Completed infusion; IV Intake: jl7 1000ml 08:45 Drug: Zofran (Ondansetron) 4 mg Route: IVP; Site: left antecubital; jl7 09:15 Follow up: Response: No adverse reaction; Nausea is decreased jl7 08:47 Drug: morphine 4 mg Route: IVP; Infused Over: 4 mins; Site: left antecubital; jl7 09:15 Follow up: Response: No adverse reaction; Pain is decreased jl7 10:32 Drug: Ketorolac 15 mg Route: IVP; Site: left antecubital; jl7 10:47 Follow up: Response: Medication administered at discharge. jl7 Disposition Summary: 05/24/22 10:31 Discharge Ordered Location: Home kb Condition: Stable kb Diagnosis - Fall on same level from slipping, tripping and stumbling without subsequent kb striking against object - Upper abdominal pain, unspecified kb - Sprain of ankle kb Followup: kb - With: Emergency Department - When: As needed - Reason: Worsening of condition Followup: kb - With: Private Physician - When: 2 - 3 days - Reason: Recheck today's complaints, Continuance of care, Re-evaluation by your physician Discharge Instructions: - Discharge Summary Sheet kb - Blunt Abdominal Trauma kb - Ankle Sprain, [id number] kb Forms: - Medication Reconciliation Form kb - Thank You Letter kb - Antibiotic Education kb - Prescription Opioid Use kb Prescriptions: - Diclofenac Sodium 75 mg Oral tablet,delayed release (DR/EC) - take 1 tablet by ORAL route 2 times per day As needed; 30 tablet; Refills: 0, kb Product Selection Permitted Addendum: 05/25/2022 13:30 Co-signature as Attending Physician, Justin Estrella MD I agree with the assessment and c lara plan of care. Signatures: Dispatcher [employer] Bobbi Guzman, POWER SYSTEMS ENGINEER-C POWER SYSTEMS ENGINEER-Justin Lopez MD MD cha Calderon, Audri, RN RN aa5 Matty Bee RN RN jl7
--- NOTE | 2022-05-24 10:32 | ER ---
Nurse's Notes [facility] Name: Natanael Dyson Age: 27 yrs Sex: Female : 1995 Arrival Date: 05/24/2022 Time: 07:55 Bed 12 Private MD: Diagnosis: Fall on same level from slipping, tripping and stumbling without subsequent striking against object;Upper abdominal pain, unspecified;Sprain of ankle Presentation: 05/24 08:01 Chief complaint: Patient states: "I fell going outside around 5 am, I forgot there was aa5 a slope and I rolled down and hit my stomach with a stick and rolled my left ankle". Coronavirus screen: At this time, the client does not indicate any symptoms associated with coronavirus-19. Ebola Screen: Patient denies travel to an Ebola-affected area in the 21 days before illness onset. Initial Sepsis Screen: Does the patient meet any 2 criteria? No. Patient's initial sepsis screen is negative. Does the patient have a suspected source of infection? No. Patient's initial sepsis screen is negative. Risk Assessment: Do you want to hurt yourself or someone else? Patient reports no desire to harm self or others. Onset of symptoms was May 24, 2022. 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 - Social history:: Smoking status: Patient denies any tobacco usage or history of. Screenin:40 [facility] ED Fall Risk Assessment (Adult) History of falling in the last 3 months, jl7 including since admission No falls in past 3 months (0 pts) Confusion or Disorientation No (0 pts) Intoxicated or Sedated No (0 pts) Impaired Gait No (0 pts) Mobility Assist Device Used No (0 pt) Altered Elimination No (0 pt) Score/Fall Risk Level 0 - 2 = Low Risk Oriented to surroundings. Abuse screen: Denies threats or abuse. Denies injuries from another. Nutritional screening: No deficits noted. Tuberculosis screening: No symptoms or risk factors identified. Assessment: 08:40 General: Appears in no apparent distress. uncomfortable, Behavior is calm, cooperative, jl7 appropriate for age. Pain: Complains of pain in right upper quadrant and right ankle Pain currently is 9 out of 10 on a pain scale. Pain began 4 hours ago. Is continuous. Neuro: Level of Consciousness is awake, alert, obeys commands, Oriented to person, place, time, situation. Cardiovascular: Patient's skin is warm and dry. Respiratory: Airway is patent Respiratory effort is even, unlabored, Respiratory pattern is regular, symmetrical. GI: Reports nausea. Derm: Skin is pink, warm \\T\\ dry. Vital Signs: 08:01 BP 143 / 99; Pulse 122; Resp 16 S; Temp 97.1(TE); Pulse Ox 97% ; Weight 56.7 kg (R); aa5 Height 5 ft. 1 in. (154.94 cm) (R); 08:55 BP 135 / 85; Pulse 120; Resp 15; Pulse Ox 100% ; Pain 9/10; jl7 10:30 BP 129 / 89; Pulse 103; Resp 15; Pulse Ox 100% ; Pain 5/10; jl7 08:01 Body Mass Index 23.62 (56.70 kg, 154.94 cm) aa5 ED Course: 07:55 Patient arrived in ED. as 08:01 Arm band placed on. aa5 08:03 Bobbi Vang FNP-C [facility]. kb 08:03 Justin Estrella MD is Attending Physician. kb 08:03 Triage completed. aa5 08:20 Matty Bee, ROSEY is Primary Nurse. jl7 08:35 Ankle Right 3 View XRAY In Process Unspecified. EDMS 08:35 Missed attempt(s): 20 gauge in right antecubital area. Bleeding controlled, band aid jl7 applied, catheter tip intact. 08:40 Patient has correct armband on for positive identification. Bed in low position. Call jl7 light in reach. Side rails up X 1. Pulse ox on. NIBP on. Warm blanket given. 08:40 Inserted saline lock: 22 gauge in left antecubital area, using aseptic technique. jl7 09:35 CT Abd/Pelvis - IV Contrast Only In Process Unspecified. EDMS 10:40 No provider procedures requiring assistance completed. IV discontinued, intact, jl7 bleeding controlled, No redness/swelling at site. Pressure dressing applied. Klaus wrap to right ankle. Administered Medications: 08:45 Drug: NS 0.9% 1000 ml Route: IV; Rate: 1000 ml; Site: left antecubital; jl7 10:10 Follow up: Response: No adverse reaction; IV Status: Completed infusion; IV Intake: jl7 1000ml 08:45 Drug: Zofran (Ondansetron) 4 mg Route: IVP; Site: left antecubital; jl7 09:15 Follow up: Response: No adverse reaction; Nausea is decreased jl7 08:47 Drug: morphine 4 mg Route: IVP; Infused Over: 4 mins; Site: left antecubital; jl7 09:15 Follow up: Response: No adverse reaction; Pain is decreased jl7 10:32 Drug: Ketorolac 15 mg Route: IVP; Site: left antecubital; jl7 10:47 Follow up: Response: Medication administered at discharge. jl7 Medication: 10:49 VIS not applicable for this client. jl7 Intake: 10:10 IV: 1000ml; Total: 1000ml. jl7 Outcome: 10:31 Discharge ordered by MD. kb 10:40 Discharged to home ambulatory, with crutches. jl7 10:40 Condition: stable 10:40 Discharge instructions given to patient, Instructed on discharge instructions, follow up and referral plans. medication usage, crutch walking, Demonstrated understanding of instructions, follow-up care, medications, crutch walking, Prescriptions given X 1. 10:49 Patient left the ED. jl7 Signatures: Dispatcher [employer] EDMS Bobbi Vang, ABBI WEAVER TIRE CORD-Anum Rodríguez Audri, RN RN aa5 Matty Bee RN RN jl7
[2022-05-24] MEDS ORDERED: KETOROLAC 30 MG/ML INJ ONE (10:33)
[2022-05-24 11:07] VITALS: TEMP 97.1
[2022-05-24 11:11] VITALS: O2SAT 100
[2022-05-24 11:16] VITALS: BP 129/89
== END 2022-05-24 10:49 | disposition home or self-care (01) ==
LOC: ER 07:52
DX: S93.402A Sprain of unspecified ligament of left ankle, initial encounter (principal); R10.13 Epigastric pain; W01.0XXA Fall on same level from slipping, tripping and stumbling without subsequent striking against object, initial encounter; Z88.8 Allergy status to other drugs, medicaments and biological substances
CPT/HCPCS: 96361; 81025; 81003; 74177; 73610; 96375; 96374; 99284; Q9967; J7030; J2405

== ENCOUNTER 2022-07-02 06:50 | Emergency (ER) | payer OTHER ==
--- OUTSIDE RECORDS SUMMARY | 2022-07-02 07:08 | XMS REPORT | Continuity of Care Document ---
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 tablet by ity of tablet 00:00: mouth in [place] 00 the Medical morning Branch and 1 tablet in the evening. Take with meals. ondansetron 2021-05 Yes [id number] 4mg Take 1 [facility] 4 mg 1-03 tablet by ity of disintegrat 00:00: mouth [place] ing tablet 00 every 8 Medica l (eight) Branch hours as needed for Nausea and Vomiting (N/V). ketorolac 2021-05 Yes [id number] 10mg Take 1 [facility] 10 mg 1-03 tablet by ity of tablet 00:00: mouth [place] 00 every 6 Medical (six) Branch hours as needed for Pain (scale 7-10). proMETHazin 2021-05 Yes [id number] 25mg Take 1 [facility] e 25 mg 1-03 tablet by ity of tablet 00:00: mouth [place] 00 every 6 Medical (six) Branch hours as needed for N/V unresponsi ve to Ondansetro n. carvediloL 2021-05 Yes [id number] 25mg Take 1 [facility] 25 mg 1-03 tablet by ity of tablet 00:00: mouth in [place] 00 the Medical morning Branch and 1 tablet in the evening. Take with meals. ondansetron 2021-05 Yes [id number] 4mg Take 1 [facility] 4 mg 1-03 tablet by ity of disintegrat 00:00: mouth [place] ing tablet 00 every 8 Medica l (eight) Branch hours as needed for Nausea and Vomiting (N/V). ketorolac 2021-05 Yes [id number] 10mg Take 1 [facility] 10 mg 1-03 tablet by ity of tablet 00:00: mouth [place] 00 every 6 Medical (six) Branch hours as needed for Pain (scale 7-10). proMETHazin 2021-05 Yes [id number] 25mg Take 1 [facility] e 25 mg 1-03 tablet by ity of tablet 00:00: mouth [place] 00 every 6 Medical (six) Branch hours as needed for N/V unresponsi ve to Ondansetro n. carvediloL 2021-05 Yes [id number] 25mg Take 1 [facility] 25 mg 1-03 tablet by ity of tablet 00:00: mouth in [place] 00 the Medical morning Branch and 1 tablet in the evening. Take with meals. ondansetron 2021-05 Yes [id number] 4mg Take 1 [facility] 4 mg 1-03 tablet by ity of disintegrat 00:00: mouth [place] ing tablet 00 every 8 Medica l (eight) Branch hours as needed for Nausea and Vomiting (N/V). ketorolac 2021-05 Yes [id number] 10mg Take 1 [facility] 10 mg 1-03 tablet by ity of tablet 00:00: mouth [place] 00 every 6 Medical (six) Branch hours as needed for Pain (scale 7-10). proMETHazin 2021-05 Yes [id number] 25mg Take 1 [facility] e 25 mg 1-03 tablet by ity of tablet 00:00: mouth [place] 00 every 6 Medical (six) Branch hours as needed for N/V unresponsi ve to Ondansetro n. carvediloL 2021-05 Yes [id number] 25mg Take 1 [facility] 25 mg 1-03 tablet by ity of tablet 00:00: mouth in [place] 00 the Medical morning Branch and 1 tablet in the evening. Take with meals. ondansetron 2021-05 Yes [id number] 4mg Take 1 [facility] 4 mg 1-03 tablet by ity of disintegrat 00:00: mouth [place] ing tablet 00 every 8 Medica l (eight) Branch hours as needed for Nausea and Vomiting (N/V). ketorolac 2021-05 Yes [id number] 10mg Take 1 [facility] 10 mg 1-03 tablet by ity of tablet 00:00: mouth [place] 00 every 6 Medical (six) Branch hours as needed for Pain (scale 7-10). proMETHazin 2021-05 Yes [id number] 25mg Take 1 [facility] e 25 mg 1-03 tablet by ity of tablet 00:00: mouth [place] 00 every 6 Medical (six) Branch hours as needed for N/V unresponsi ve to Ondansetro n. carvediloL 2021-05 Yes [id number] 25mg Take 1 [facility] 25 mg 1-03 tablet by ity of tablet 00:00: mouth in [place] 00 the Medical morning Branch and 1 tablet in the evening. Take with meals. ondansetron 2021-05 Yes [id number] 4mg Take 1 [facility] 4 mg 1-03 tablet by ity of disintegrat 00:00: mouth [place] ing tablet 00 every 8 Medica l (eight) Branch hours as needed for Nausea and Vomiting (N/V). ketorolac 2021-05 Yes [id number] 10mg Take 1 [facility] 10 mg 1-03 tablet by ity of tablet 00:00: mouth [place] 00 every 6 Medical (six) Branch hours as needed for Pain (scale 7-10). proMETHazin 2021-05 Yes [id number] 25mg Take 1 [facility] e 25 mg 1-03 tablet by ity of tablet 00:00: mouth [place] 00 every 6 Medical (six) Branch hours as needed for N/V unresponsi ve to Ondansetro n. carvediloL 2021-05 Yes [id number] 25mg Take 1 [facility] 25 mg 1-03 tablet by ity of tablet 00:00: mouth in [place] 00 the Medical morning Branch and 1 tablet in the evening. Take with meals. ondansetron 2021-05 Yes [id number] 4mg Take 1 [facility] 4 mg 1-03 tablet by ity of disintegrat 00:00: mouth [place] ing tablet 00 every 8 Medica l (eight) Branch hours as needed for Nausea and Vomiting (N/V). ketorolac 2021-05 Yes [id number] 10mg Take 1 [facility] 10 mg 1-03 tablet by ity of tablet 00:00: mouth [place] 00 every 6 Medical (six) Branch hours as needed for Pain (scale 7-10). proMETHazin 2021-05 Yes [id number] 25mg Take 1 [facility] e 25 mg 1-03 tablet by ity of tablet 00:00: mouth [place] 00 every 6 Medical (six) Branch hours as needed for N/V unresponsi ve to Ondansetro n. carvediloL 2021-05 Yes [id number] 25mg Take 1 [facility] 25 mg 1-03 tablet by ity of tablet 00:00: mouth in [place] 00 the Medical morning Branch and 1 tablet in the evening. Take with meals. ondansetron 2021-05 Yes [id number] 4mg Take 1 [facility] 4 mg 1-03 tablet by ity of disintegrat 00:00: mouth [place] ing tablet 00 every 8 Medica l (eight) Branch hours as needed for Nausea and Vomiting (N/V). ketorolac 2021-05 Yes [id number] 10mg Take 1 [facility] 10 mg 1-03 tablet by ity of tablet 00:00: mouth [place] 00 every 6 Medical (six) Branch hours as needed for Pain (scale 7-10). proMETHazin 2021-05 Yes [id number] 25mg Take 1 [facility] e 25 mg 1-03 tablet by ity of tablet 00:00: mouth [place] 00 every 6 Medical (six) Branch hours as needed for N/V unresponsi ve to Ondansetro n. carvediloL 2021-05 Yes [id number] 25mg Take 1 [facility] 25 mg 1-03 tablet by ity of tablet 00:00: mouth in [place] 00 the Medical morning Branch and 1 tablet in the evening. Take with meals. ondansetron 2021-05 Yes [id number] 4mg Take 1 [facility] 4 mg 1-03 tablet by ity of disintegrat 00:00: mouth [place] ing tablet 00 every 8 Medica l (eight) Branch hours as needed for Nausea and Vomiting (N/V). ketorolac 2021-05 Yes [id number] 10mg Take 1 [facility] 10 mg 1-03 tablet by ity of tablet 00:00: mouth [place] 00 every 6 Medical (six) Branch hours as needed for Pain (scale 7-10). proMETHazin 2021-05 Yes [id number] 25mg Take 1 [facility] e 25 mg 1-03 tablet by ity of tablet 00:00: mouth [place] 00 every 6 Medical (six) Branch hours as needed for N/V unresponsi ve to Ondansetro n. carvediloL 2021-05 Yes [id number] 25mg Take 1 [facility] 25 mg 1-03 tablet by ity of tablet 00:00: mouth in [place] 00 the Medical morning Branch and 1 tablet in the evening. Take with meals. carvediloL 2021-05 Yes [id number] 25mg Take 1 [facility] 25 mg 1-03 tablet by ity of tablet 00:00: mouth in [place] 00 the Medical morning Branch and 1 tablet in the evening. Take with meals. carvediloL 2021-05 Yes [id number] 25mg Take 1 [facility] 25 mg 1-03 tablet by ity of tablet 00:00: mouth in [place] [address] the Medical morning Branch and 1 tablet in the evening. Take with meals. carvediloL 2021-05 Yes [id number] 25mg Take 1 [facility] 25 mg 1-03 tablet by ity of tablet 00:00: mouth in [place] [address] the Medical morning Branch and 1 tablet in the evening. Take with meals. carvediloL 2021-05 Yes [id number] 25mg Take 1 [facility] 25 mg 1-03 tablet by ity of tablet 00:00: mouth in [place] [address] the Medical morning [place] and 1 tablet in the evening. Take with meals. carvediloL 2021-05 Yes [id number] 25mg Take 1 [facility] 25 mg 1-03 tablet by ity of tablet 00:00: mouth in [place] [address] the Medical morning [place] and 1 tablet in the evening. Take with meals. carvediloL 2021-05 Yes [id number] 25mg Take 1 [facility] 25 mg 1-03 tablet by ity of tablet 00:00: mouth in [place] [address] the Medical morning [place] and 1 tablet in the evening. Take with meals. carvediloL 2021-05 Yes [id number] 25mg Take 1 [facility] 25 mg 1-03 tablet by ity of tablet 00:00: mouth in [place] [address] the Medical morning [place] and 1 tablet in the evening. Take with meals. carvediloL 2021-05 Yes [id number] 25mg Take 1 [facility] 25 mg 1-03 tablet by ity of tablet 00:00: mouth in [place] [address] the Medical morning [place] and 1 tablet in the evening. Take with meals. carvediloL 2021-05 Yes [id number] 25mg Take 1 [facility] 25 mg 1-03 tablet by ity of tablet 00:00: mouth in [place] [address] the Medical morning Branch and 1 tablet in the evening. Take with meals. carvediloL 2021-05 Yes [id number] 25mg Take 1 [facility] 25 mg 1-03 tablet by ity of tablet 00:00: mouth in [place] [address] the Medical morning [place] and 1 tablet in the evening. Take with meals. carvediloL 2021-05 Yes [id number] 25mg Take 1 [facility] 25 mg 1-03 tablet by ity of tablet 00:00: mouth in [place] [address] the Medical morning Branch and 1 tablet in the evening. Take with meals. carvediloL 2021-05 Yes [id number] 25mg Take 1 [facility] 25 mg 1-03 tablet by ity of tablet 00:00: mouth in [place] 00 the Medical morning Branch and 1 tablet in the evening. Take with meals. carvediloL 2021-05 Yes [id number] 25mg Take 1 [facility] 25 mg 1-03 tablet by ity of tablet 00:00: mouth in [place] 00 the Medical morning Branch and 1 tablet in the evening. Take with meals. ondansetron 2021-05- No [id number] 4mg Take 1 [facility] 4 mg -07 21- tablet by ity of disintegrat 00:00: 00:00 [place] tablet 00 :00 every 8 Medica l (eight) Branch hours as needed for Nausea and Vomiting (N/V). ketorolac 2021-05- No [id number] 10mg Take 1 [facility] 10 mg 05-15 tablet by ity of tablet 00:00: 00:00 mouth [place] 00 :00 every 6 Medical (six) Branch hours as needed for Pain (scale 7-10). proMETHazin 2021-05- No [id number] 25mg Take 1 [facility] e 25 mg 05-15 tablet by ity of tablet 00:00: 00:00 mouth [place] 00 :00 every 6 Medical (six) Branch hours as needed for N/V unresponsi ve to Ondansetro n. cephALEXin 2021-05- No [id number] 500mg Take 1 [facility] 500 mg 05-15 capsule by ity of capsule 00:00: 05:59 mouth 4 [place] 00 :00 (four) Medical times Branch daily for 3 days. cephALEXin 2021-05- No [id number] 500mg Take 1 [facility] 500 mg -07 21- capsule by ity of capsule 00:00: 05:59 mouth 4 [place] 00 :00 (four) Medical times Branch daily for 3 days. cephALEXin 2021-05- No [id number] 500mg Take 1 [facility] 500 mg 05-15- capsule by ity of capsule 00:00: 05:59 mouth 4 [place] 00 :00 (four) Medical times Branch daily for 3 days. predniSONE 2021-05 No [id number] 20mg Take 1 [facility] 20 mg 0-31 -03 tablet by ity of tablet 00:00: 04:59 mouth in [place] 00 :00 the [facility] for 2 days. methocarbam 2021-05 No 500mg 500 mg, U nivers oL 0-30 10-30 Oral, ity of (ROBAXIN) 16:45: 17:08 ONCE, 1 [place] 500 00 :00 dose, On Medic al mg [facility] 03/11/22 at 1200, [place] dexamethaso 2021-05 No 10mg 10 mg, Uni vers ne sod phos 0-30 10-30 Slow IV ity of PF 16:00: 16:00 [place], [place] injection 00 :00 ONCE, 1 Medical 10 mg dose, On [facility] 03/11/22 at 1100, 1 mL diphenhydrA 2021-05 No 25mg 25 mg, Uni vers MINE 0-30 10-30 Slow IV ity of (BENADRYL) 15:46: 16:00 [place], [place] injection 00 :00 ONCE, 1 Medical 25 mg dose, On [facility] 03/11/22 at 1100, STAT NaCl 0.9% 2021-05 No 1000mL at 999 Uni vers (NS) IV 0-30 10-30 mL/hr, ity of infusion 15:45: 16:04 [place] 1,000 mL 00 :00 s, ONCE, 1 Medic al dose, On [facility] 03/11/22 at 1045, Routine butalbital- 2021-05- No 1{tbl} 1 tablet, Univers acetaminoph 0-30 10-30 Oral, ity of en-caff 15:00: 15:05 ONCE, 1 [place] (ESGIC) 00 :00 dose, On Medical 50-325-40 Sun [place] mg tablet 1 03/11/22 tablet at 1015, [place] ketorolac 2021-05 No 15mg 15 mg, Unive rs (TORADOL) 0-30 10-30 Slow IV ity of injection 14:45: 15:05 [place], [place] 15 mg 00 :00 ONCE, 1 Medical dose, On [facility] 03/11/22 at 0945, [place] proMETHazin 2021-05 12.5mg 12.5 mg, Univers e 0-30 10-30 IV ity of (PHENERGAN) 14:45: 15:04 Piggyback, [place] 12.5 mg in 00 :00 ONCE, 1 Medica l NaCl 0.9% dose, On Branch (NS) 50 mL [place] IV 03/11/22 piggyback at 0945, [place] proMETHazin 2021-05 Yes [id number] 25mg Take 1 [facility] e 25 mg 0-30 tablet by ity of tablet 00:00: mouth [place] 00 every 6 Medical (six) Branch hours as needed for Nausea and Vomiting (N/V). methocarbam 2021-05 Yes [id number] 500mg Take 1 [facility] oL 500 mg 0-30 tablet by ity o f tablet 00:00: mouth 3 [place] 00 (three) Medical times Branch daily as needed for Pain (scale 7-10). proMETHazin 2021-05 Yes [id number] 25mg Take 1 [facility] e 25 mg 0-30 tablet by ity of tablet 00:00: mouth [place] 00 every 6 Medical (six) Branch hours as needed for Nausea and Vomiting (N/V). methocarbam 2021-05 Yes [id number] 500mg Take 1 [facility] oL 500 mg 0-30 tablet by ity o f tablet 00:00: mouth 3 [place] 00 (three) Medical times Branch daily as needed for Pain (scale 7-10). proMETHazin 2021-05 Yes [id number] 25mg Take 1 [facility] e 25 mg 0-30 tablet by ity of tablet 00:00: mouth [place] 00 every 6 Medical (six) Branch hours as needed for Nausea and Vomiting (N/V). methocarbam 2021-05 Yes [id number] 500mg Take 1 [facility] oL 500 mg 0-30 tablet by ity o f tablet 00:00: mouth 3 [place] 00 (three) Medical times Branch daily as needed for Pain (scale 7-10). proMETHazin 2021-05 Yes [id number] 25mg Take 1 [facility] e 25 mg 0-30 tablet by ity of tablet 00:00: mouth [place] 00 every 6 Medical (six) Branch hours as needed for Nausea and Vomiting (N/V). methocarbam 2021-05 Yes [id number] 500mg Take 1 [facility] oL 500 mg 0-30 tablet by ity o f tablet 00:00: mouth 3 [place] 00 (three) Medical times Branch daily as needed for Pain (scale 7-10). proMETHazin 2021-05 Yes [id number] 25mg Take 1 [facility] e 25 mg 0-30 tablet by ity of tablet 00:00: mouth [place] 00 every 6 Medical (six) Branch hours as needed for Nausea and Vomiting (N/V). methocarbam 2021-05 Yes [id number] 500mg Take 1 [facility] oL 500 mg 0-30 tablet by ity o f tablet 00:00: mouth 3 00 (three) Medical times Branch daily as needed for Pain (scale 7-10). proMETHazin 2021-05 Yes [id number] 25mg Take 1 [facility] e 25 mg 0-30 tablet by ity of tablet 00:00: mouth [place] 00 every 6 Medical (six) Branch hours as needed for Nausea and Vomiting (N/V). methocarbam 2021-05 Yes [id number] 500mg Take 1 [facility] oL 500 mg 0-30 tablet by ity o f tablet 00:00: mouth 3 (three) Medical times Branch daily as needed for Pain (scale 7-10). proMETHazin 2021-05 Yes [id number] 25mg Take 1 [facility] e 25 mg 0-30 tablet by ity of tablet 00:00: mouth [place] 00 every 6 Medical (six) Branch hours as needed for Nausea and Vomiting (N/V). methocarbam 2021-05 Yes [id number] 500mg Take 1 [facility] oL 500 mg 0-30 tablet by ity o f tablet 00:00: mouth 3 (three) Medical times Branch daily as needed for Pain (scale 7-10). proMETHazin 2021-05 Yes [id number] 25mg Take 1 [facility] e 25 mg 0-30 tablet by ity of tablet 00:00: mouth [place] 00 every 6 Medical (six) Branch hours as needed for Nausea and Vomiting (N/V). methocarbam 2021-05 Yes [id number] 500mg Take 1 [facility] oL 500 mg 0-30 tablet by ity o f tablet 00:00: mouth 3 00 (three) Medical times Branch daily as needed for Pain (scale 7-10). proMETHazin 2021-05 Yes [id number] 25mg Take 1 [facility] e 25 mg 0-30 tablet by ity of tablet 00:00: mouth [place] 00 every 6 Medical (six) Branch hours as needed for Nausea and Vomiting (N/V). methocarbam 2021-05 Yes [id number] 500mg Take 1 [facility] oL 500 mg 0-30 tablet by ity o f tablet 00:00: mouth 3 [place] 00 (three) Medical times Branch daily as needed for Pain (scale 7-10). proMETHazin 2021-05 Yes [id number] 25mg Take 1 [facility] e 25 mg 0-30 tablet by ity of tablet 00:00: mouth [place] 00 every 6 Medical (six) Branch hours as needed for Nausea and Vomiting (N/V). methocarbam 2021-05 Yes [id number] 500mg Take 1 [facility] oL 500 mg 0-30 tablet by ity o f tablet 00:00: mouth 3 [place] 00 (three) Medical times Branch daily as needed for Pain (scale 7-10). proMETHazin 2021-05 Yes [id number] 25mg Take 1 [facility] e 25 mg 0-30 tablet by ity of tablet 00:00: mouth [place] 00 every 6 Medical (six) Branch hours as needed for Nausea and Vomiting (N/V). methocarbam 2021-05 Yes [id number] 500mg Take 1 [facility] oL 500 mg 0-30 tablet by ity o f tablet 00:00: mouth 3 [place] 00 (three) Medical times Branch daily as needed for Pain (scale 7-10). proMETHazin 2021-05 Yes [id number] 25mg Take 1 [facility] e 25 mg 0-30 tablet by ity of tablet 00:00: mouth [place] 00 every 6 Medical (six) Branch hours as needed for Nausea and Vomiting (N/V). proMETHazin 2021-05 Yes [id number] 25mg Take 1 [facility] e 25 mg 0-30 tablet by ity of tablet 00:00: mouth [place] 00 every 6 Medical (six) Branch hours as needed for Nausea and Vomiting (N/V). proMETHazin 2021-05 Yes [id number] 25mg Take 1 [facility] e 25 mg 0-30 tablet by ity of tablet 00:00: mouth [place] 00 every 6 Medical (six) Branch hours as needed for Nausea and Vomiting (N/V). proMETHazin 2021-05 Yes [id number] 25mg Take 1 [facility] e 25 mg 0-30 tablet by ity of tablet 00:00: mouth [place] 00 every 6 Medical (six) Branch hours as needed for Nausea and Vomiting (N/V). proMETHazin 2021-05 Yes [id number] 25mg Take 1 [facility] e 25 mg 0-30 tablet by ity of tablet 00:00: mouth [place] 00 every 6 Medical (six) Branch hours as needed for Nausea and Vomiting (N/V). proMETHazin 2021-05 Yes [id number] 25mg Take 1 [facility] e 25 mg 0-30 tablet by ity of tablet 00:00: mouth [place] 00 every 6 Medical (six) Branch hours as needed for Nausea and Vomiting (N/V). proMETHazin 2021-05 Yes [id number] 25mg Take 1 [facility] e 25 mg 0-30 tablet by ity of tablet 00:00: mouth [place] 00 every 6 Medical (six) Branch hours as needed for Nausea and Vomiting (N/V). proMETHazin 2021-05 Yes [id number] 25mg Take 1 [facility] e 25 mg 0-30 tablet by ity of tablet 00:00: mouth [place] 00 every 6 Medical (six) Branch hours as needed for Nausea and Vomiting (N/V). proMETHazin 2021-05 Yes [id number] 25mg Take 1 [facility] e 25 mg 0-30 tablet by ity of tablet 00:00: mouth [place] 00 every 6 Medical (six) Branch hours as needed for Nausea and Vomiting (N/V). proMETHazin 2021-05 Yes [id number] 25mg Take 1 [facility] e 25 mg 0-30 tablet by ity of tablet 00:00: mouth [place] 00 every 6 Medical (six) Branch hours as needed for Nausea and Vomiting (N/V). proMETHazin 2021-05 Yes [id number] 25mg Take 1 [facility] e 25 mg 0-30 tablet by ity of tablet 00:00: mouth [place] 00 every 6 Medical (six) Branch hours as needed for Nausea and Vomiting (N/V). proMETHazin 2021-05 Yes [id number] 25mg Take 1 [facility] e 25 mg 0-30 tablet by ity of tablet 00:00: mouth [place] 00 every 6 Medical (six) Branch hours as needed for Nausea and Vomiting (N/V). proMETHazin 2021-05 Yes [id number] 25mg Take 1 [facility] e 25 mg 0-30 tablet by ity of tablet 00:00: mouth [place] 00 every 6 Medical (six) Branch hours as needed for Nausea and Vomiting (N/V). methocarbam 2021-05- No [id number] 500mg Take 1 [facility] oL 500 mg 0-30 11-26 tablet by ity of tablet 00:00: 00:00 mouth 3 [place] 00 :00 (three) Medical times Branch daily as needed for Pain (scale 7-10). topiramate 2021-05 Yes [id number] 100mg Take 4 [facility] 25 mg 0-21 tablets by ity of tablet 00:00: mouth in [place] 00 the Medical morning. Branch topiramate 2021-05 Yes [id number] 100mg Take 4 [facility] 25 mg 0-21 tablets by ity of tablet 00:00: mouth in [place] 00 the Medical morning. [place] topiramate 2021-05 Yes [id number] 100mg Take 4 [facility] 25 mg 0-21 tablets by ity of tablet 00:00: mouth in [place] 00 the Medical morning. Branch topiramate 2021-05 Yes [id number] 100mg Take 4 [facility] 25 mg 0-21 tablets by ity of tablet 00:00: mouth in [place] 00 the Medical morning. Branch topiramate 2021-05 Yes [id number] 100mg Take 4 [facility] 25 mg 0-21 tablets by ity of tablet 00:00: mouth in [place] 00 the Medical morning. Branch topiramate 2021-05 Yes [id number] 100mg Take 4 [facility] 25 mg 0-21 tablets by ity of tablet 00:00: mouth in [place] 00 the Medical morning. Branch topiramate 2021-05 Yes [id number] 100mg Take 4 [facility] 25 mg 0-21 tablets by ity of tablet 00:00: mouth in [place] 00 the Medical morning. Branch topiramate 2021-05 Yes [id number] 100mg Take 4 [facility] 25 mg 0-21 tablets by ity of tablet 00:00: mouth in [place] 00 the Medical morning. Branch topiramate 2021-05 Yes [id number] 100mg Take 4 [facility] 25 mg 0-21 tablets by ity of tablet 00:00: mouth in [place] 00 the Medical morning. Branch topiramate 2021-05 Yes [id number] 100mg Take 4 [facility] 25 mg 0-21 tablets by ity of tablet 00:00: mouth in [place] 00 the Medical morning. Branch topiramate 2-1 Yes [id number] 100mg Take 4 [facility] 25 mg 0-21 tablets by ity of tablet 00:00: mouth in [place] 00 the Medical morning. Branch topiramate 2-1 Yes [id number] 100mg Take 4 [facility] 25 mg 0-21 tablets by ity of tablet 00:00: mouth in [place] 00 the Medical morning. Branch topiramate 2021-1 Yes [id number] 100mg Take 4 [facility] 25 mg 0-21 tablets by ity of tablet 00:00: mouth in [place] 00 the Medical morning. Branch topiramate 2-1 Yes [id number] 100mg Take 4 [facility] 25 mg 0-21 tablets by ity of tablet 00:00: mouth in [place] 00 the Medical morning. Branch topiramate 2-1 Yes [id number] 100mg Take 4 [facility] 25 mg 0-21 tablets by ity of tablet 00:00: mouth in [place] the Medical morning. Branch topiramate 2021-1 Yes [id number] 100mg Take 4 [facility] 25 mg 0-21 tablets by ity of tablet 00:00: mouth in [place] the Medical morning. Branch topiramate 2021-1 Yes [id number] 100mg Take 4 [facility] 25 mg 0-21 tablets by ity of tablet 00:00: mouth in [place] the Medical morning. Branch topiramate 2-1 Yes [id number] 100mg Take 4 [facility] 25 mg 0-21 tablets by ity of tablet 00:00: mouth in [place] the Medical morning. Branch topiramate 2-1 Yes [id number] 100mg Take 4 [facility] 25 mg 0-21 tablets by ity of tablet 00:00: mouth in [place] the Medical morning. Branch topiramate 2-1 Yes [id number] 100mg Take 4 [facility] 25 mg 0-21 tablets by ity of tablet 00:00: mouth in [place] 00 the Medical morning. Branch topiramate 2022-1 Yes [id number] 100mg Take 4 [facility] 25 mg 0-21 tablets by ity of tablet 00:00: mouth in [place] 00 the Medical morning. Branch topiramate 2-1 Yes [id number] 100mg Take 4 [facility] 25 mg 0-21 tablets by ity of tablet 00:00: mouth in [place] 00 the Medical morning. Branch topiramate 2022-1 Yes [id number] 100mg Take 4 [facility] 25 mg 0-21 tablets by ity of tablet 00:00: mouth in [place] 00 the Medical morning. Branch topiramate 2021-05 Yes [id number] 100mg Take 4 [facility] 25 mg 0-21 tablets by ity of tablet 00:00: mouth in [place] 00 the Medical morning. Branch topiramate 2021-05 Yes [id number] 100mg Take 4 [facility] 25 mg 0-21 [...] 28 :00 Medical Branch albuterol 2021-05 Yes [id number] 2{puff} Inhale 2 Univers 90 0-18 Puffs ity of mcg/actuati 00:00: every 6 [place] as on inhaler 00 (six) Medical hours as Branch needed for Wheezing or Shortness of Breath. albuterol 2021-05 Yes [id number] 2{puff} Inhale 2 [facility] 90 0-18 Puffs ity of mcg/actuati 00:00: every 6 [place] on inhaler 00 (six) Medical hours as Branch needed for Wheezing or Shortness of Breath. albuterol 2021-05 Yes [id number] 2{puff} Inhale 2 [facility] 90 0-18 Puffs ity of mcg/actuati 00:00: every 6 [place] on inhaler 00 (six) Medical hours as Branch needed for Wheezing or Shortness of Breath. albuterol 2021-05 Yes [id number] 2{puff} Inhale 2 [facility] 90 0-18 Puffs ity of mcg/actuati 00:00: every 6 [place] on inhaler 00 (six) Medical hours as Branch needed for Wheezing or Shortness of Breath. albuterol 2021-05 Yes [id number] 2{puff} Inhale 2 [facility] 90 0-18 Puffs ity of mcg/actuati 00:00: every 6 [place] on inhaler 00 (six) Medical hours as Branch needed for Wheezing or Shortness of Breath. albuterol 2021-05 Yes [id number] 2{puff} Inhale 2 Univers 90 0-18 Puffs ity of mcg/actuati 00:00: every 6 [place] on inhaler 00 (six) Medical hours as Branch needed for Wheezing or Shortness of Breath. albuterol 2021-05 Yes [id number] 2{puff} Inhale 2 Univers 90 0-18 Puffs ity of mcg/actuati 00:00: every 6 [place] as on inhaler 00 (six) Medical hours as Branch needed for Wheezing or Shortness of Breath. albuterol 2021-05 Yes [id number] 2{puff} Inhale 2 Univers 90 0-18 Puffs ity of mcg/actuati 00:00: every 6 [place] as on inhaler 00 (six) Medical hours as Branch needed for Wheezing or Shortness of Breath. albuterol 2021-05 Yes [id number] 2{puff} Inhale 2 [facility] 90 0-18 Puffs ity of mcg/actuati 00:00: every 6 [place] on inhaler 00 (six) Medical hours as Branch needed for Wheezing or Shortness of Breath. albuterol 2021-05 Yes [id number] 2{puff} Inhale 2 [facility] 90 0-18 Puffs ity of mcg/actuati 00:00: every 6 [place] on inhaler 00 (six) Medical hours as Branch needed for Wheezing or Shortness of Breath. albuterol 2021-05 Yes [id number] 2{puff} Inhale 2 [facility] 90 0-18 Puffs ity of mcg/actuati 00:00: every 6 [place] on inhaler 00 (six) Medical hours as Branch needed for Wheezing or Shortness of Breath. albuterol 2021-05 Yes [id number] 2{puff} Inhale 2 [facility] 90 0-18 Puffs ity of mcg/actuati 00:00: every 6 [place] as on inhaler 00 (six) Medical hours as Branch needed for Wheezing or Shortness of Breath. albuterol 2021-05 Yes [id number] 2{puff} Inhale 2 [facility] 90 0-18 Puffs ity of mcg/actuati 00:00: every 6 [place] on inhaler 00 (six) Medical hours as Branch needed for Wheezing or Shortness of Breath. albuterol 2021-05 Yes [id number] 2{puff} Inhale 2 [facility] 90 0-18 Puffs ity of mcg/actuati 00:00: every 6 [place] on inhaler 00 (six) Medical hours as Branch needed for Wheezing or Shortness of Breath. albuterol 2021-05 Yes [id number] 2{puff} Inhale 2 [facility] 90 0-18 Puffs ity of mcg/actuati 00:00: every 6 [place] on inhaler 00 (six) Medical hours as Branch needed for Wheezing or Shortness of Breath. albuterol 2021-05 Yes [id number] 2{puff} Inhale 2 [facility] 90 0-18 Puffs ity of mcg/actuati 00:00: every 6 [place] on inhaler 00 (six) Medical hours as Branch needed for Wheezing or Shortness of Breath. albuterol 2021-05 Yes [id number] 2{puff} Inhale 2 [facility] 90 0-18 Puffs ity of mcg/actuati 00:00: every 6 [place] on inhaler 00 (six) Medical hours as Branch needed for Wheezing or Shortness of Breath. albuterol 2021-05 Yes [id number] 2{puff} Inhale 2 [facility] 90 0-18 Puffs ity of mcg/actuati 00:00: every 6 [place] on inhaler 00 (six) Medical hours as Branch needed for Wheezing or Shortness of Breath. albuterol 2021-05 Yes [id number] 2{puff} Inhale 2 [facility] 90 0-18 Puffs ity of mcg/actuati 00:00: every 6 [place] on inhaler 00 (six) Medical hours as Branch needed for Wheezing or Shortness of Breath. albuterol 2021-05 Yes [id number] 2{puff} Inhale 2 [facility] 90 0-18 Puffs ity of mcg/actuati 00:00: every 6 [place] on inhaler 00 (six) Medical hours as Branch needed for Wheezing or Shortness of Breath. albuterol 2021-05 Yes [id number] 2{puff} Inhale 2 [facility] 90 0-18 Puffs ity of mcg/actuati 00:00: every 6 [place] on inhaler 00 (six) Medical hours as Branch needed for Wheezing or Shortness of Breath. albuterol 2021-05 Yes [id number] 2{puff} Inhale 2 [facility] 90 0-18 Puffs ity of mcg/actuati 00:00: every 6 [place] on inhaler 00 (six) Medical hours as Branch needed for Wheezing or Shortness of Breath. albuterol 2021-05 Yes [id number] 2{puff} Inhale 2 [facility] 90 0-18 Puffs ity of mcg/actuati 00:00: every 6 [place] on inhaler 00 (six) Medical hours as Branch needed for Wheezing or Shortness of Breath. albuterol 2021-05 Yes [id number] 2{puff} Inhale 2 [facility] 90 0-18 Puffs ity of mcg/actuati 00:00: every 6 [place] on inhaler 00 (six) Medical hours as Branch needed for Wheezing or Shortness of Breath. albuterol 2021-05 Yes [id number] 2{puff} Inhale 2 [facility] 90 0-18 Puffs ity of mcg/actuati 00:00: every 6 [place] on inhaler 00 (six) Medical hours as Branch needed for Wheezing or Shortness of Breath. albuterol 2021-05 Yes [id number] 2{puff} Inhale 2 [facility] 90 0-18 Puffs ity of mcg/actuati 00:00: every 6 [place] on inhaler 00 (six) Medical hours as Branch needed for Wheezing or Shortness of Breath. albuterol 2021-05 Yes [id number] 2{puff} Inhale 2 [facility] 90 0-18 Puffs ity of mcg/actuati 00:00: every 6 [place] on inhaler 00 (six) Medical hours as Branch needed for Wheezing or Shortness of Breath. albuterol 2021-05 Yes [id number] 2{puff} Inhale 2 [facility] 90 0-18 Puffs ity of mcg/actuati 00:00: every 6 [place] on inhaler 00 (six) Medical hours as Branch needed for Wheezing or Shortness of Breath. albuterol 2021-05 Yes [id number] 2{puff} Inhale 2 [facility] 90 0-18 Puffs ity of mcg/actuati 00:00: every 6 [place] on inhaler 00 (six) Medical hours as Branch needed for Wheezing or Shortness of Breath. albuterol 2021-05 Yes [id number] 2{puff} Inhale 2 [facility] 90 0-18 Puffs [...] in a 24 hour period. benzonatate 2021-05- No [id number] 200mg Take 1 [facility] 200 mg 0-18 10-26 capsule by ity of capsule 00:00: 04:59 mouth 3 [place] 00 :00 (three) Medical times Branch daily as needed for Cough for up to 7 days. benzonatate 2021-05- No [id number] 200mg Take 1 [facility] 200 mg 0-18 10-26 capsule by ity of capsule 00:00: 04:59 mouth 3 [place] 00 :00 (three) Medical times Branch daily as needed for Cough for up to 7 days. benzonatate 2021-05- No [id number] 200mg Take 1 [facility] 200 mg 0-18 10-26 capsule by ity of capsule 00:00: 04:59 mouth 3 [place] 00 :00 (three) Medical times Branch daily as needed for Cough for up to 7 days. benzonatate 2021-05- No [id number] 200mg Take 1 [facility] 200 mg 0-18 10-26 capsule by ity of capsule 00:00: 04:59 mouth 3 [place] 00 :00 (three) Medical times Branch daily as needed for Cough for up to 7 days. benzonatate 2021-05- No [id number] 200mg Take 1 [facility] 200 mg 0-18 10-26 capsule by ity of capsule 00:00: 04:59 mouth 3 [place] 00 :00 (three) Medical times Branch daily as needed for Cough for up to 7 days. benzonatate 2021-05- No [id number] 200mg Take 1 [facility] 200 mg 003-07 capsule by ity of capsule 00:00: 04:59 mouth 3 [place] 00 :00 (three) Medical times [place] daily as needed for Cough for up to 7 days. SUMAtriptan 2021-05- No [id number] 50mg Take 1 [facility] 50 mg 002-28 9105 tablet by ity of tablet 00:00: 04:59 mouth [place] 00 :[place] now for 1 Medical dose. [place] SUMAtriptan 2021-05- No [id number] 50mg Take 1 [facility] 50 mg 002-28 9105 tablet by ity of tablet 00:00: 04:59 mouth [place] 00 :00 now for 1 Medical dose. [place] butalbital- 2021-05- No 1{tbl} 1 tablet, Univers acetaminoph 0-12 Oral, ity of en-caff 08:15: 08:09 ONCE, 1 [place] (ESGIC) 00 :00 dose, On Medical 50-325-40 Wed Branch mg tablet 1 02/21/22 tablet at 0315, [place] butorphanol 2021-05 No 1mg 1 mg, IV U nivers (STADOL) 0-12 Push, ity of injection 1 08:15: 07:28 ONCE, 1 [place] mg 00 :00 dose, On Medical Wed Branch 02/21/22 at 0315, Routine NaCl 0.9% 2021-05 No 1000mL at 999 Uni vers (NS) bolus 0- 10-12 mL/hr, ity of infusion 07:15: 08:40 1,000 mL, [place] as 1,000 mL 00 :00 IV Medical Infusion, Branch ONCE, 1 dose, On 02/21/22 at 0215, [place] proMETHazin 2021-05 No 12.5mg 12.5 mg, Univers e 0-12 10-12 IV ity of (PHENERGAN) 06:30: 06:38 Piggyback, [place] 12.5 mg in 00 :00 ONCE, 1 Medica l NaCl 0.9% dose, On Branch (NS) 50 mL Wed IV 02/21/22 piggyback at 0130, [place] dexamethaso 2021-05- No 10mg 10 mg, Uni vers ne sod phos 002-21 Slow IV ity of PF 06:30: 06:38 Push, [place] injection 00 :00 ONCE, 1 Medical 10 mg dose, On [facility] 02/21/22 at 0130, 1 mL ketorolac 2021-05 No 15mg 15 mg, Unive rs (TORADOL) 002-21 Slow IV ity of injection 06:30: 06:38 Push, [place] 15 mg 00 :00 ONCE, 1 Medical dose, On [facility] 02/21/22 at 0130, [place] diphenhydrA 2021-05 No 25mg 25 mg, Uni vers MINE 002-21 Slow IV ity of (BENADRYL) 06:30: 06:38 Push, [place] injection 00 :00 ONCE, 1 Medical 25 mg dose, On [facility] 02/21/22 at 0130, [place] FENTanyl PF 2021-05 No 50ug 50 mcg, Un sushant (SUBLIMAZE 002-18 Slow IV ity o f (PF)) 20:30: 19:44 Push, [place] injection 00 :00 ONCE, 1 Medical 50 mcg dose, On [facility] 02/18/22 at 1530, Routine ketorolac 2021-05 No 30mg 30 mg, Unive rs (TORADOL) 002-18 Slow IV ity of injection 20:15: 20:09 Push, [place] 30 mg 00 :00 ONCE, 1 Medical dose, On [facility] 02/18/22 at 1515, [place] iopamidol 2021-05- No 60mL 60 mL, Un sushant (ISOVUE 002-18 Intravenou ity o f 370-500 mL) 19:30: 17:30 s, ONCE, 1 [place] injection 00 :00 dose, On Medica l 60 mL [facility] 02/18/22 at 1430, Routine proMETHazin 2021-05 No 12.5mg 12.5 mg, Univers e 002-18 IV ity of (PHENERGAN) 18:15: 18:19 Piggyback, [place] 12.5 mg in 00 :00 ONCE, 1 Medica l NaCl 0.9% dose, On Branch (NS) 50 mL Sun IV 02/18/22 at piggyback 1315, [place] FENTanyl PF 2021-05- No 50ug 50 mcg, Un sushant (SUBLIMAZE 02-18 Slow IV ity o f (PF)) 18:00: 17:26 Push, [place] injection 00 :00 ONCE, 1 Medical 50 mcg dose, On Branch [place] 02/18/22 at 1300, Routine ondansetron 2021-05- No 4mg 4 mg, Slow Univers (ZOFRAN 02-18 IV Push, ity of (PF)) 17:15: 17:27 ONCE, 1 [place] injection 4 00 :00 dose, On Medi yessi mg [place] Branch 02/18/22 at 1215, [place] morpHINE (2 2021- No 4mg 4 mg, Slow Univers mg/mL) 01-18 IV Push, ity of injection 4 15:15: 14:49 ONCE, 1 [place] mg 00 :00 dose, On [facility] 01/18/22 Branch at 1015, [place] ondansetron 2021- No 4mg 4 mg, Slow Univers (ZOFRAN 01-18 IV Push, ity of (PF)) 13:30: 13:33 ONCE, 1 [place] injection 4 00 :00 dose, On Medi yessi mg [facility] 01/18/22 Branch at 0830, [place] morpHINE (4 2021-2021- No 4mg 4 mg, Slow Univers mg/mL) 01-18 IV Push, ity of injection 4 13:30: 13:34 ONCE, 1 [place] mg 00 :00 dose, On [facility] 01/18/22 Branch at 0830, STAT morpHINE (4 2021-2021- No 4mg 4 mg, Slow Univers mg/mL) 01-18 IV Push, ity of injection 4 12:30: 11:39 ONCE, 1 [place] mg 00 :00 dose, On [facility] 01/18/22 Branch at 0730, STAT famotidine [...] Branch at 0630, [place] iodixanoL 2021- No [id number] 80mL 80 mL, U nivers (VISIPAQUE 01-18 [...] Indication s: acute pain ondansetron 2021-0 Yes [id number] 4mg Take 1 [facility] 4 mg 01-18 [id number] tablet by ity of disintegrat 00:00: mouth [place] ing tablet 00 every 8 Medica l (eight) Branch hours as needed for Nausea and Vomiting (N/V). ibuprofen 2021-0 Yes [id number] 600mg Take 1 [facility] 600 mg 01-18 [id number] tablet by ity of tablet 00:00: mouth [place] 00 every 6 Medical (six) Branch hours as needed for Pain (scale 4-6). traMADoL 50 2-0 Yes [id number] 50mg Take 1 Univ ers mg tablet 9-08 tablet by ity o f 00:00: mouth [place] 00 every 6 Medical (six) Branch hours as needed for Pain (scale 7-10). Indication s: acute pain ondansetron 2022-0 Yes [id number] 4mg Take 1 [facility] 4 mg 9-08 [id number] tablet by ity of disintegrat 00:00: mouth [place] ing tablet 00 every 8 Medica l (eight) Branch hours as needed for Nausea and Vomiting (N/V). ibuprofen 2022-0 Yes [id number] 600mg Take 1 [facility] 600 mg 9-08 [id number] tablet by ity of tablet 00:00: mouth [place] 00 every 6 Medical (six) Branch hours as needed for Pain (scale 4-6). traMADoL 50 2021-0 Yes [id number] 50mg Take 1 Univ ers mg tablet 9-08 tablet by ity o f 00:00: mouth [place] 00 every 6 Medical (six) Branch hours as needed for Pain (scale 7-10). Indication s: acute pain ondansetron 2-0 Yes [id number] 4mg Take 1 [facility] 4 mg 9-08 [id number] tablet by ity of disintegrat 00:00: mouth [place] ing tablet 00 every 8 Medica l (eight) Branch hours as needed for Nausea and Vomiting (N/V). ibuprofen 2022-0 Yes [id number] 600mg Take 1 [facility] 600 mg 9-08 [id number] tablet by ity of tablet 00:00: mouth [place] 00 every 6 Medical (six) Branch hours as needed for Pain (scale 4-6). traMADoL 50 2-0 Yes [id number] 50mg Take 1 Univ ers mg tablet 9-08 tablet by ity o f 00:00: mouth [place] 00 every 6 Medical (six) Branch hours as needed for Pain (scale 7-10). Indication s: acute pain ondansetron 2022-0 Yes [id number] 4mg Take 1 [facility] 4 mg 9-08 [id number] tablet by ity of disintegrat 00:00: mouth [place] ing tablet 00 every 8 Medica l (eight) Branch hours as needed for Nausea and Vomiting (N/V). ibuprofen 2022-0 Yes [id number] 600mg Take 1 [facility] 600 mg 9-08 [id number] tablet by ity of tablet 00:00: mouth [place] 00 every 6 Medical (six) Branch hours as needed for Pain (scale 4-6). traMADoL 50 2021-0 Yes [id number] 50mg Take 1 Univ ers mg tablet 9-08 tablet by ity o f 00:00: mouth [place] 00 every 6 Medical (six) Branch hours as needed for Pain (scale 7-10). Indication s: acute pain ondansetron 2022-0 Yes [id number] 4mg Take 1 [facility] 4 mg 9-08 [id number] tablet by ity of disintegrat 00:00: mouth [place] ing tablet 00 every 8 Medica l (eight) Branch hours as needed for Nausea and Vomiting (N/V). ibuprofen 2021-0 Yes [id number] 600mg Take 1 [facility] 600 mg 9-08 [id number] tablet by ity of tablet 00:00: mouth [place] 00 every 6 Medical (six) Branch hours as needed for Pain (scale 4-6). traMADoL 50 2021-0 Yes [id number] 50mg Take 1 Univ ers mg tablet 9-08 tablet by ity o f 00:00: mouth [place] 00 every 6 Medical (six) Branch hours as needed for Pain (scale 7-10). Indication s: acute pain ondansetron 2021-0 Yes [id number] 4mg Take 1 [facility] 4 mg 9-08 [id number] tablet by ity of disintegrat 00:00: mouth [place] ing tablet 00 every 8 Medica l (eight) Branch hours as needed for Nausea and Vomiting (N/V). ibuprofen 2-0 Yes [id number] 600mg Take 1 [facility] 600 mg 9-08 [id number] tablet by ity of tablet 00:00: mouth [place] 00 every 6 Medical (six) Branch hours as needed for Pain (scale 4-6). traMADoL 50 2021-0 Yes [id number] 50mg Take 1 Univ ers mg tablet 9-08 tablet by ity o f 00:00: mouth [place] 00 every 6 Medical (six) Branch hours as needed for Pain (scale 7-10). Indication s: acute pain ondansetron 2-0 Yes [id number] 4mg Take 1 Univers 4 mg 9-08 [id number] tablet by ity of disintegrat 00:00: mouth [place] ing tablet 00 every 8 Medica l (eight) Branch hours as needed for Nausea and Vomiting (N/V). ibuprofen 2021-0 Yes [id number] 600mg Take 1 [facility] 600 mg 9- 034332 tablet by ity of tablet 00:00: mouth [place] 00 every 6 Medical (six) Branch hours as needed for Pain (scale 4-6). traMADoL 50 2021-0 Yes [id number] 50mg Take 1 Univ ers mg tablet 9-08 tablet by ity o f 00:00: mouth [place] 00 every 6 Medical (six) Branch hours as needed for Pain (scale 7-10). Indication s: acute pain ondansetron 2021-0 Yes [id number] 4mg Take 1 Univers 4 mg - [id number] tablet by ity of disintegrat 00:00: mouth [place] ing tablet 00 every 8 Medica l (eight) Branch hours as needed for Nausea and Vomiting (N/V). ibuprofen 2021-0 Yes [id number] 600mg Take 1 [facility] 600 mg - [id number] tablet by ity of tablet 00:00: mouth [place] 00 every 6 Medical (six) Branch hours as needed for Pain (scale 4-6). traMADoL 50 0 2021- No [id number] 50mg Take 1 Uni vers mg tablet 01-1818 tablet by ity of 00:00: 00:00 mouth [place] 00 :00 every 6 Medical (six) Branch hours as needed for Pain (scale 7-10). Indication s: acute pain ondansetron 2021-2021- No [id number] 4mg Take 1 [facility] 4 mg 01-18 [id number] tablet by ity of disintegrat 00:00: 00:00 mouth [place] ing tablet 00 :00 every 8 Medica l (eight) Branch hours as needed for Nausea and Vomiting (N/V). ibuprofen 2021-0 2021- No [id number] 600mg Take 1 [facility] 600 mg 01-18 [id number] tablet by ity o f tablet 00:00: 00:00 mouth [place] 00 :00 every 6 Medical (six) Branch hours as needed for Pain (scale 4-6). traMADoL 50 0 2021- No [id number] 50mg Take 1 Uni vers mg tablet 01-1818 tablet by ity of 00:00: 00:00 mouth [place] 00 :00 every 6 Medical (six) Branch hours as needed for Pain (scale 7-10). Indication s: acute pain ondansetron 2021-0 2021- No [id number] 4mg Take 1 [facility] 4 mg 9-12 20-18 [id number] tablet by ity of disintegrat 00:00: 00:00 mouth [place] ing tablet 00 :00 every 8 Medica l (eight) Branch hours as needed for Nausea and Vomiting (N/V). ibuprofen 2021-2021- No [id number] 600mg Take 1 [facility] 600 mg 9-02-27 [id number] tablet by ity o f tablet 00:00: [...] Indication s: acute pain ondansetron 2021-2021- No [id number] 4mg Take 1 Univers 4 mg 9-02-27 [id number] tablet by ity of disintegrat 00:00: 00:00 mouth [place] ing tablet 00 :00 every 8 Medica l (eight) Branch hours as needed for Nausea and Vomiting (N/V). ibuprofen 2021-2- No [id number] 600mg Take 1 [facility] 600 mg -02-27 [id number] tablet by ity o f tablet 00:00: 00:00 mouth [place] 00 :00 every 6 Medical (six) Branch hours as needed for Pain (scale 4-6). traMADoL 50 2021-0 2- No [id number] 50mg Take 1 Uni vers mg tablet 01-1818 tablet by ity of 00:00: 00:00 mouth [place] 00 :00 every 6 Medical (six) Branch hours as needed for Pain (scale 7-10). Indication s: acute pain ondansetron 2021-0 2- No [id number] 4mg Take 1 Univers 4 mg 9-02-27 [id number] tablet by ity of disintegrat 00:00: 00:00 mouth [place] ing tablet 00 :00 every 8 Medica l (eight) Branch hours as needed for Nausea and Vomiting (N/V). ibuprofen 2021- No [id number] 600mg Take 1 [facility] 600 mg 01-18 [id number] tablet by ity o f tablet 00:00: 00:00 mouth [place] 00 :00 every 6 Medical (six) Branch hours as needed for Pain (scale 4-6). predniSONE 2021- No [id number] 40mg Take 2 [facility] 20 mg 01-16 tablets by ity of tablet 00:00: 04:59 mouth in [place] 00 :00 the Medical morning Branch for 7 days. predniSONE 2021- No [id number] 40mg Take 2 [facility] 20 mg 01-16 tablets by ity of tablet 00:00: 04:59 mouth in [place] 00 :00 the Medical morning Branch for 7 days. morpHINE (4 2021- No 4mg 4 mg, Slow Univers mg/mL) 01-15 IV Push, ity of injection 4 16:15: 15:28 ONCE, 1 [place] mg 00 :00 dose, On Medical [facility] 01/15/22 Branch at 1115, [place] proMETHazin No 12.5mg 12.5 mg, Univers e 01-15 IV ity of (PHENERGAN) 15:30: 15:28 [place], [place] 12.5 mg in 00 :00 ONCE, 1 Medica l NaCl 0.9% dose, On Branch (NS) 50 mL [facility] 01/15/22 IV at 1030, piggyback [place] NaCl [...] [place] mg 00 :00 dose, On Medical Sat01/15/22 Branch at 1000, [place] ondansetron 2021- No [...] Sat01/15/22 at 0915, 1 mL proMETHazin Yes [id number] 25mg Take 1 Univers e 25 mg 9-05 tablet by ity of tablet 00:00: mouth [place] 00 every 6 Medical (six) Branch hours as needed for Nausea and Vomiting (N/V). proMETHazin 2021-0 Yes [id number] 25mg Take 1 Univers e 25 mg 9-05 tablet by ity of tablet 00:00: mouth [place] 00 every 6 Medical (six) Branch hours as needed for Nausea and Vomiting (N/V). proMETHazin 2021-0 Yes [id number] 25mg Take 1 Univers e 25 mg 9-05 tablet by ity of tablet 00:00: mouth [place] 00 every 6 Medical (six) Branch hours as needed for Nausea and Vomiting (N/V). proMETHazin 2021-0 Yes [id number] 25mg Take 1 Univers e 25 mg 9-05 tablet by ity of tablet 00:00: mouth [place] 00 every 6 Medical (six) Branch hours as needed for Nausea and Vomiting (N/V). proMETHazin 2021-0 Yes [id number] 25mg Take 1 Univers e 25 mg 9-05 tablet by ity of tablet 00:00: mouth [place] 00 every 6 Medical (six) Branch hours as needed for Nausea and Vomiting (N/V). proMETHazin 2021-0 Yes [id number] 25mg Take 1 Univers e 25 mg 9-05 tablet by ity of tablet 00:00: mouth [place] 00 every 6 Medical (six) Branch hours as needed for Nausea and Vomiting (N/V). proMETHazin 2021-0 Yes [id number] 25mg Take 1 Univers e 25 mg 9-05 tablet by ity of tablet 00:00: mouth [place] 00 every 6 Medical (six) Branch hours as needed for Nausea and Vomiting (N/V). proMETHazin Yes [id number] 25mg Take 1 Univers e 25 mg 9-05 tablet by ity of tablet 00:00: mouth [place] 00 every 6 Medical (six) Branch hours as needed for Nausea and Vomiting (N/V). proMETHazin Yes [id number] 25mg Take 1 Univers e 25 mg 9-05 tablet by ity of tablet 00:00: mouth [place] 00 every 6 Medical (six) Branch hours as needed for Nausea and Vomiting (N/V). proMETHazin 2021- No [id number] 25mg Take 1 Univers e 25 mg 9-05 10-18 tablet by ity of tablet 00:00: 00:00 mouth [place] 00 :00 every 6 Medical (six) Branch hours as needed for Nausea and Vomiting (N/V). proMETHazin 2021- No [id number] 25mg Take 1 Univers e 25 mg 9-05 10-18 tablet by ity of tablet 00:00: 00:00 mouth [place] 00 :00 every 6 Medical (six) Branch hours as needed for Nausea and Vomiting (N/V). proMETHazin 2021- No [id number] 25mg Take 1 Univers e 25 mg 9-05 10-18 tablet by ity of tablet 00:00: 00:00 mouth [place] 00 :00 every 6 Medical (six) Branch hours as needed for Nausea and Vomiting (N/V). proMETHazin 2021- No [id number] 25mg Take 1 Univers e 25 mg [...] tablet Mon Branch 4 mg 01/08/22 at 2044, Routine HYDROcodone 2021- No 1{tbl} 1 tablet, [...] 1 Medical 10 mg dose, On Branch 01/08/22 at 1845, 1 mL ketorolac 2021- No 30mg 30 mg, Unive rs (TORADOL) 01-08 Slow IV ity of injection 23:45: 23:51 Push, [place] 30 mg 00 :00 ONCE, 1 Medical dose, On Branch 01/08/22 at 1845, [place] ondansetron Yes [id number] 4mg Take 1 Univers 4 mg 8-29 tablet by ity of disintegrat 00:00: mouth [place] ing tablet 00 every 8 Medica l (eight) Branch hours as needed for Nausea and Vomiting (N/V). acetaminoph Yes [id number] 650mg Take 1 Univers en (TYLENOL 8-29 tablet by ity of ARTHRITIS 00:00: mouth [place] PAIN) 650 00 every 8 Medical mg CR (eight) Branch tablet hours as needed for Pain. ketorolac 0 Yes [id number] 10mg Take 1 U nivers 10 mg 8-29 tablet by ity of tablet 00:00: mouth [place] 00 every 6 Medical (six) Branch hours as needed for Pain (scale 4-6) or Pain (scale 7-10). metaxalone 0 Yes [id number] 800mg Take 1 Univers (SKELAXIN) 8-29 tablet by ity of 800 mg 00:00: mouth in [place] tablet 00 the Medical morning Branch and 1 tablet at noon and 1 tablet in the evening. ondansetron 2022-0 Yes [id number] 4mg Take 1 Univers 4 mg 8-29 tablet by ity of disintegrat 00:00: mouth [place] ing tablet 00 every 8 Medica l (eight) Branch hours as needed for Nausea and Vomiting (N/V). acetaminoph 2022-0 Yes [id number] 650mg Take 1 Univers en (TYLENOL 8-29 tablet by ity of ARTHRITIS 00:00: mouth [place] PAIN) 650 00 every 8 Medical mg CR (eight) Branch tablet hours as needed for Pain. ketorolac 2022-0 Yes [id number] 10mg Take 1 U nivers 10 mg 8-29 tablet by ity of tablet 00:00: mouth [place] 00 every 6 Medical (six) Branch hours as needed for Pain (scale 4-6) or Pain (scale 7-10). metaxalone 2022-0 Yes [id number] 800mg Take 1 Univers (SKELAXIN) 8-29 tablet by ity of 800 mg 00:00: mouth in [place] tablet 00 the Medical morning Branch and 1 tablet at noon and 1 tablet in the evening. ondansetron 2-0 Yes [id number] 4mg Take 1 Univers 4 mg 8-29 tablet by ity of disintegrat 00:00: mouth [place] ing tablet 00 every 8 Medica l (eight) Branch hours as needed for Nausea and Vomiting (N/V). acetaminoph 2-0 Yes [id number] 650mg Take 1 Univers en (TYLENOL 8-29 tablet by ity of ARTHRITIS 00:00: mouth [place] PAIN) 650 00 every 8 Medical mg CR (eight) Branch tablet hours as needed for Pain. ketorolac 2022-0 Yes [id number] 10mg Take 1 U nivers 10 mg 8-29 tablet by ity of tablet 00:00: mouth [place] 00 every 6 Medical (six) Branch hours as needed for Pain (scale 4-6) or Pain (scale 7-10). metaxalone 2022-0 Yes [id number] 800mg Take 1 Univers (SKELAXIN) 8-29 tablet by ity of 800 mg 00:00: mouth in [place] tablet 00 the Medical morning Branch and 1 tablet at noon and 1 tablet in the evening. ondansetron 2022-0 Yes [id number] 4mg Take 1 [facility] 4 mg 8-29 tablet by ity of disintegrat 00:00: mouth [place] ing tablet 00 every 8 Medica l (eight) Branch hours as needed for Nausea and Vomiting (N/V). acetaminoph 2022-0 Yes [id number] 650mg Take 1 Univers en (TYLENOL 8-29 tablet by ity of ARTHRITIS 00:00: mouth [place] PAIN) 650 00 every 8 Medical mg CR (eight) Branch tablet hours as needed for Pain. ketorolac 2022-0 Yes [id number] 10mg Take 1 U nivers 10 mg 8-29 tablet by ity of tablet 00:00: mouth [place] 00 every 6 Medical (six) Branch hours as needed for Pain (scale 4-6) or Pain (scale 7-10). metaxalone 2022-0 Yes [id number] 800mg Take 1 Univers (SKELAXIN) 8-29 tablet by ity of 800 mg 00:00: mouth in [place] tablet 00 the Medical morning Branch and 1 tablet at noon and 1 tablet in the evening. ondansetron 2-0 Yes [id number] 4mg Take 1 Univers 4 mg 8-29 tablet by ity of disintegrat 00:00: mouth [place] ing tablet 00 every 8 Medica l (eight) Branch hours as needed for Nausea and Vomiting (N/V). acetaminoph 2-0 Yes [id number] 650mg Take 1 Univers en (TYLENOL 8-29 tablet by ity of ARTHRITIS 00:00: mouth [place] PAIN) 650 00 every 8 Medical mg CR (eight) Branch tablet hours as needed for Pain. ketorolac 2022-0 Yes [id number] 10mg Take 1 U nivers 10 mg 8-29 tablet by ity of tablet 00:00: mouth [place] 00 every 6 Medical (six) Branch hours as needed for Pain (scale 4-6) or Pain (scale 7-10). metaxalone 2022-0 Yes [id number] 800mg Take 1 Univers (SKELAXIN) 8-29 tablet by ity of 800 mg 00:00: mouth in [place] tablet 00 the Medical morning Branch and 1 tablet at noon and 1 tablet in the evening. ondansetron 2022-0 Yes [id number] 4mg Take 1 [facility] 4 mg 8-29 tablet by ity of disintegrat 00:00: mouth [place] ing tablet 00 every 8 Medica l (eight) Branch hours as needed for Nausea and Vomiting (N/V). acetaminoph 2022-0 Yes [id number] 650mg Take 1 [facility] en (TYLENOL 8-29 tablet by ity of ARTHRITIS 00:00: mouth [place] PAIN) 650 00 every 8 Medical mg CR (eight) Branch tablet hours as needed for Pain. ketorolac 2022-0 Yes [id number] 10mg Take 1 [facility] n[facility] 10 mg 8-29 tablet by ity of tablet 00:00: mouth [place] 00 every 6 Medical (six) Branch hours as needed for Pain (scale 4-6) or Pain (scale 7-10). metaxalone 2022-0 Yes [id number] 800mg Take 1 [facility] (SKELAXIN) 8-29 tablet by ity of 800 mg 00:00: mouth in [place] tablet 00 the Medical morning Branch and 1 tablet at noon and 1 tablet in the evening. ondansetron 2-0 Yes [id number] 4mg Take 1 [facility] 4 mg 8-29 tablet by ity of disintegrat 00:00: mouth [place] ing tablet 00 every 8 Medica l (eight) Branch hours as needed for Nausea and Vomiting (N/V). acetaminoph 2-0 Yes [id number] 650mg Take 1 [facility] en (TYLENOL 8-29 tablet by ity of ARTHRITIS 00:00: mouth [place] PAIN) 650 00 every 8 Medical mg CR (eight) Branch tablet hours as needed for Pain. ketorolac 2022-0 Yes [id number] 10mg Take 1 [facility] nivers 10 mg 8-29 tablet by ity of tablet 00:00: mouth [place] 00 every 6 Medical (six) Branch hours as needed for Pain (scale 4-6) or Pain (scale 7-10). metaxalone 2022-0 Yes [id number] 800mg Take 1 [facility] (SKELAXIN) 8-29 tablet by ity of 800 mg 00:00: mouth in [place] tablet 00 the Medical morning Branch and 1 tablet at noon and 1 tablet in the evening. ondansetron 2022-0 Yes [id number] 4mg Take 1 [facility] 4 mg 8-29 tablet by ity of disintegrat 00:00: mouth [place] ing tablet 00 every 8 Medica l (eight) Branch hours as needed for Nausea and Vomiting (N/V). acetaminoph 2022-0 Yes [id number] 650mg Take 1 [facility] en (TYLENOL 8-29 tablet by ity of ARTHRITIS 00:00: mouth [place] PAIN) 650 00 every 8 Medical mg CR (eight) Branch tablet hours as needed for Pain. ketorolac 2022-0 Yes [id number] 10mg Take 1 [facility] nivers 10 mg 8-29 tablet by ity of tablet 00:00: mouth [place] 00 every 6 Medical (six) Branch hours as needed for Pain (scale 4-6) or Pain (scale 7-10). metaxalone 2022-0 Yes [id number] 800mg Take 1 [facility] (SKELAXIN) 8-29 tablet by ity of 800 mg 00:00: mouth in [place] tablet 00 the Medical morning Branch and 1 tablet at noon and 1 tablet in the evening. ondansetron 2-0 Yes [id number] 4mg Take 1 [facility] 4 mg 8-29 tablet by ity of disintegrat 00:00: mouth [place] ing tablet 00 every 8 Medica l (eight) Branch hours as needed for Nausea and Vomiting (N/V). acetaminoph 2-0 Yes [id number] 650mg Take 1 [facility] en (TYLENOL 8-29 tablet by ity of ARTHRITIS 00:00: mouth [place] PAIN) 650 00 every 8 Medical mg CR (eight) Branch tablet hours as needed for Pain. ketorolac 2022-0 Yes [id number] 10mg Take 1 [facility] n[facility] 10 mg 8-29 tablet by ity of tablet 00:00: mouth [place] 00 every 6 Medical (six) Branch hours as needed for Pain (scale 4-6) or Pain (scale 7-10). metaxalone 2022-0 Yes [id number] 800mg Take 1 [facility] (SKELAXIN) 8-29 tablet by ity of 800 mg 00:00: mouth in [place] tablet 00 the Medical morning Branch and 1 tablet at noon and 1 tablet in the evening. ondansetron 2022-0 Yes [id number] 4mg Take 1 [facility] 4 mg 8-29 tablet by ity of disintegrat 00:00: mouth [place] ing tablet 00 every 8 Medica l (eight) Branch hours as needed for Nausea and Vomiting (N/V). acetaminoph 2022-0 Yes [id number] 650mg Take 1 [facility] en (TYLENOL 8-29 tablet by ity of ARTHRITIS 00:00: mouth [place] PAIN) 650 00 every 8 Medical mg CR (eight) Branch tablet hours as needed for Pain. ketorolac 2021-0 Yes [id number] 10mg Take 1 [facility] 10 mg 8-29 tablet by ity of tablet 00:00: mouth [place] 00 every 6 Medical (six) Branch hours as needed for Pain (scale 4-6) or Pain (scale 7-10). metaxalone 2021-0 Yes [id number] 800mg Take 1 [facility] (SKELAXIN) 8-29 tablet by ity of 800 mg 00:00: mouth in [place] tablet 00 the Medical morning Branch and 1 tablet at noon and 1 tablet in the evening. acetaminoph 0 Yes [id number] 650mg Take 1 [facility] en (TYLENOL 8-29 tablet by ity of ARTHRITIS 00:00: mouth [place] PAIN) 650 00 every 8 Medical mg CR (eight) Branch tablet hours as needed for Pain. acetaminoph 0 Yes [id number] 650mg Take 1 [facility] en (TYLENOL 8-29 tablet by ity of ARTHRITIS 00:00: mouth [place] PAIN) 650 00 every 8 Medical mg CR (eight) Branch tablet hours as needed for Pain. acetaminoph 0 Yes [id number] 650mg Take 1 [facility] en (TYLENOL 8-29 tablet by ity of ARTHRITIS 00:00: mouth [place] PAIN) 650 00 every 8 Medical mg CR (eight) Branch tablet hours as needed for Pain. acetaminoph 0 Yes [id number] 650mg Take 1 [facility] en (TYLENOL 8-29 tablet by ity of ARTHRITIS 00:00: mouth [place] PAIN) 650 00 every 8 Medical mg CR (eight) Branch tablet hours as needed for Pain. acetaminoph 0 Yes [id number] 650mg Take 1 [facility] en (TYLENOL 8-29 tablet by ity of ARTHRITIS 00:00: mouth [place] PAIN) 650 00 every 8 Medical mg CR (eight) Branch tablet hours as needed for Pain. acetaminoph 2021-0 Yes [id number] 650mg Take 1 [facility] en (TYLENOL 8-29 tablet by ity of ARTHRITIS 00:00: mouth [place] PAIN) 650 00 every 8 Medical mg CR (eight) Branch tablet hours as needed for Pain. acetaminoph 2021-0 Yes [id number] 650mg Take 1 [facility] en (TYLENOL 8-29 tablet by ity of ARTHRITIS 00:00: mouth [place] PAIN) 650 00 every 8 Medical mg CR (eight) Branch tablet hours as needed for Pain. acetaminoph 2021-0 Yes [id number] 650mg Take 1 [facility] en (TYLENOL 8-29 tablet by ity of ARTHRITIS 00:00: mouth [place] PAIN) 650 00 every 8 Medical mg CR (eight) Branch tablet hours as needed for Pain. acetaminoph 0 Yes [id number] 650mg Take 1 [facility] en (TYLENOL 8-29 tablet by ity of ARTHRITIS 00:00: mouth [place] PAIN) 650 00 every 8 Medical mg CR (eight) Branch tablet hours as needed for Pain. acetaminoph 0 Yes [id number] 650mg Take 1 [facility] en (TYLENOL 8-29 tablet by ity of ARTHRITIS 00:00: mouth [place] PAIN) 650 00 every 8 Medical mg CR (eight) Branch tablet hours as needed for Pain. acetaminoph 0 Yes [id number] 650mg Take 1 [facility] en (TYLENOL 8-29 tablet by ity of ARTHRITIS 00:00: mouth [place] PAIN) 650 00 every 8 Medical mg CR (eight) Branch tablet hours as needed for Pain. acetaminoph 0 Yes [id number] 650mg Take 1 [facility] en (TYLENOL 8-29 tablet by ity of ARTHRITIS 00:00: mouth [place] PAIN) 650 00 every 8 Medical mg CR (eight) Branch tablet hours as needed for Pain. acetaminoph 0 Yes [id number] 650mg Take 1 [facility] en (TYLENOL 8-29 tablet by ity of ARTHRITIS 00:00: mouth [place] PAIN) 650 00 every 8 Medical mg CR (eight) Branch tablet hours as needed for Pain. acetaminoph 2021-0 Yes [id number] 650mg Take 1 [facility] en (TYLENOL 8-29 tablet by ity of ARTHRITIS 00:00: mouth [place] PAIN) 650 00 every 8 Medical mg CR (eight) Branch tablet hours as needed for Pain. acetaminoph 2021-0 Yes [id number] 650mg Take 1 [facility] en (TYLENOL 8-29 tablet by ity of ARTHRITIS 00:00: mouth [place] PAIN) 650 00 every 8 Medical mg CR (eight) Branch tablet hours as needed for Pain. acetaminoph 2021-0 Yes [id number] 650mg Take 1 [facility] en (TYLENOL 8-29 tablet by ity of ARTHRITIS 00:00: mouth [place] PAIN) 650 00 every 8 Medical mg CR (eight) Branch tablet hours as needed for Pain. acetaminoph 2021-0 Yes [id number] 650mg Take 1 [facility] en (TYLENOL 8-29 tablet by ity of ARTHRITIS 00:00: mouth [place] PAIN) 650 00 every 8 Medical mg CR (eight) Branch tablet hours as needed for Pain. acetaminoph 2021- No [id number] 650mg Take 1 [facility] en (TYLENOL 8-29 11-26 tablet by it y of ARTHRITIS 00:00: 00:00 mouth [place] PAIN) 650 00 :00 every 8 Medical mg CR (eight) Branch tablet hours as needed for Pain. ondansetron 2021- No [id number] 4mg Take 1 [facility] 4 mg 8-29 10-18 tablet by ity of disintegrat 00:00: 00:00 [place] tablet 00 :00 every 8 Medica l (eight) Branch hours as needed for Nausea and Vomiting (N/V). ketorolac 2021- No [id number] 10mg Take 1 [facility] 10 mg 8-29 10-18 tablet by ity of tablet 00:00: 00:00 mouth [place] 00 :00 every 6 Medical (six) Branch hours as needed for Pain (scale 4-6) or Pain (scale 7-10). metaxalone 2021- No [id number] 800mg Take 1 [facility] (SKELAXIN) 8-29 10-18 tablet by ity of 800 mg 00:00: 00:00 mouth in [place] tablet 00 :00 the Medical morning Branch and 1 tablet at noon and 1 tablet in the evening. ondansetron 2021-0 2021- No [id number] 4mg Take 1 [facility] 4 mg 8-29 10-18 tablet by ity of disintegrat 00:00: 00:00 mouth [place] ing tablet 00 :00 every 8 Medica l (eight) Branch hours as needed for Nausea and Vomiting (N/V). ketorolac 2021-0 2021- No [id number] 10mg Take 1 [facility] 10 mg 8-29 10-18 tablet by ity of tablet 00:00: 00:00 mouth [place] 00 :00 every 6 Medical (six) Branch hours as needed for Pain (scale 4-6) or Pain (scale 7-10). metaxalone 2021-0 2021- No [id number] 800mg Take 1 [facility] (SKELAXIN) 8-29 10-18 tablet by ity of 800 mg 00:00: 00:00 mouth in [place] tablet 00 :00 the Medical morning Branch and 1 tablet at noon and 1 tablet in the evening. ondansetron 2022-0 202- No [id number] 4mg Take 1 [facility] 4 mg 8-29 10-18 tablet by ity of disintegrat 00:00: 00:00 mouth [place] tablet 00 :00 every 8 Medica l (eight) Branch hours as needed for Nausea and Vomiting (N/V). ketorolac 2021-0 2021- No [id number] 10mg Take 1 [facility] 10 mg 8-29 10-18 tablet by ity of tablet 00:00: 00:00 mouth [place] 00 :00 every 6 Medical (six) Branch hours as needed for Pain (scale 4-6) or Pain (scale 7-10). metaxalone 2021-0 2021- No [id number] 800mg Take 1 [facility] (SKELAXIN) 8-29 10-18 tablet by ity of 800 mg 00:00: 00:00 mouth in [place] tablet 00 :00 the Medical morning Branch and 1 tablet at noon and 1 tablet in the evening. ondansetron 2-0 2021- No [id number] 4mg Take 1 [facility] 4 mg 8-29 10-18 tablet by ity of disintegrat 00:00: 00:00 mouth [place] tablet 00 :00 every 8 Medica l (eight) Branch hours as needed for Nausea and Vomiting (N/V). ketorolac 2022-0 2- No [id number] 10mg Take 1 [facility] 10 mg 8-29 10-18 tablet by ity of tablet 00:00: 00:00 mouth [place] 00 :00 every 6 Medical (six) Branch hours as needed for Pain (scale 4-6) or Pain (scale 7-10). metaxalone 2022-0 2022- No [id number] 800mg Take 1 [facility] (SKELAXIN) 8-29 10-18 [...] 12 Medical (twelve) Branch hours. metroNIDAZO 2021-0 2022- No 500mg Take 1 Un sushant LE 500 mg 8-08 10-18 tablet by ity of tablet 00:00: 00:00 mouth [place] 00 :00 every 12 Medical (twelve) Branch hours. metroNIDAZO 2021-0 202- No 500mg Take 1 Un sushant LE 500 mg 8-08 10-18 tablet by ity of tablet 00:00: 00:00 mouth [place] 00 :00 every 12 Medical (twelve) Branch hours. metroNIDAZO 2021-0 202- No 500mg Take 1 Un sushant LE [...] 2021- No Take by Un sushant ietary 8- 08-02 mouth. ity of supp. no.8 15:08: 00:00 [place] (TRAZAMINE 46 :00 Medical ORAL) Branch diphenhydrA Yes 25mg Take 25 mg [facility] MINE 25 mg 12-12 by mouth ity o f capsule 13:03: every 6 [place] 04 (six) Medical hours as Branch needed for Allergies. carbamazepi 0 Yes Take by Uni vers ne - mouth. ity of (TEGRETOL 13:03: [place] ORAL) 04 Medical Branch citalopram Yes Take by Univ ers hydrobromid 02 mouth. ity of e 13:03: [place] (CITALOPRAM 04 Medical ORAL) Branch ALBUTEROL 0 Yes [facility] INHALE 8 ity of 13:03: [place] 04 Medical Branch diphenhydrA 0 Yes 25mg [...] Yes [facility] INHALE 8-02 ity of 13:03: [place] [address] Medical Branch diphenhydrA 0 Yes 25mg Take 25 mg [facility] MINE 25 mg 802 by mouth ity o f capsule 13:03: every 6 [place] [address] (six) Medical hours as Branch needed for Allergies. carbamazepi 0 Yes Take by [facility] vers ne 8-02 mouth. ity of (TEGRETOL 13:03: [place] ORAL) Medical Branch citalopram Yes Take by Univ ers hydrobromid 8-02 mouth. ity of e 13:03: [place] (CITALOPRAM 04 Medical ORAL) Branch ALBUTEROL 0 Yes [facility] INHALE 8-02 ity of 13:03: [place] [address] Medical Branch diphenhydrA 0 Yes 25mg Take 25 mg [facility] MINE 25 mg 802 by mouth ity o f capsule 13:03: every 6 [place] [address] (six) Medical hours as Branch needed for Allergies. carbamazepi 0 Yes Take by [facility] vers ne 8-02 mouth. ity of (TEGRETOL 13:03: [place] ORAL) 04 Medical Branch citalopram Yes Take by Univ ers hydrobromid 8-02 mouth. ity of e 13:03: [place] (CITALOPRAM 04 Medical ORAL) Branch ALBUTEROL 0 Yes [facility] INHALE 8-02 ity of 13:03: [place] [address] Medical Branch diphenhydrA 0 Yes 25mg Take 25 mg [facility] MINE 25 mg 802 by mouth ity o f capsule 13:03: every 6 [place] [address] (six) Medical hours as Branch needed for Allergies. carbamazepi 0 Yes Take by [facility] vers ne 8-02 mouth. ity of (TEGRETOL 13:03: [place] ORAL) 04 Medical Branch citalopram 0 Yes Take by Univ ers hydrobromid 8-02 mouth. ity of e 13:03: [place] (CITALOPRAM 04 Medical ORAL) Branch ALBUTEROL 0 Yes [facility] INHALE 8 ity of 13:03: [place] [address] Medical Branch diphenhydrA 0 Yes 25mg Take 25 mg [facility] MINE 25 mg 802 by mouth ity o f capsule 13:03: every 6 [place] [address] (six) Medical hours as Branch needed for Allergies. carbamazepi 0 Yes Take by [facility] vers ne 8-02 mouth. ity of (TEGRETOL 13:03: [place] ORAL) 04 Medical Branch citalopram Yes Take by Univ ers hydrobromid 8-02 mouth. ity of e 13:03: [place] (CITALOPRAM 04 Medical ORAL) Branch ALBUTEROL Yes [facility] INHALE 8 ity of 13:03: [place] [address] Medical Branch diphenhydrA Yes 25mg Take 25 mg [facility] MINE 25 mg 12-12 by mouth ity o f capsule 13:03: every 6 [place] [address] (six) Medical hours as Branch needed for Allergies. carbamazepi 0 Yes Take by [facility] vers ne 8-02 mouth. ity of (TEGRETOL 13:03: [place] ORAL) 04 Medical Branch citalopram Yes Take by Univ ers hydrobromid 8-02 mouth. ity of e 13:03: [place] (CITALOPRAM 04 Medical ORAL) Branch ALBUTEROL Yes [facility] INHALE 8 ity of 13:03: [place] [address] Medical Branch diphenhydrA Yes 25mg Take 25 mg [facility] MINE 25 mg 12-12 by mouth ity o f capsule 13:03: every 6 [place] [address] (six) Medical hours as Branch needed for Allergies. carbamazepi Yes Take by [facility] vers ne 8-02 mouth. ity of (TEGRETOL 13:03: [place] ORAL) 04 Medical Branch citalopram Yes Take by Univ ers hydrobromid 8-02 mouth. ity of e 13:03: [place] (CITALOPRAM 04 Medical ORAL) Branch ALBUTEROL 0 Yes [facility] INHALE 8 ity of 13:03: [place] [address] Medical Branch diphenhydrA 2022-0 Yes 25mg Take 25 mg [facility] MINE 25 mg 8-02 by mouth ity o f capsule 13:03: every 6 [place] [address] (six) Medical hours as Branch needed for Allergies. carbamazepi 0 Yes Take by [facility] vers ne 8-02 mouth. ity of (TEGRETOL 13:03: [place] ORAL) 04 Medical Branch citalopram Yes Take by Univ ers hydrobromid 8-02 mouth. ity of e 13:03: [place] (CITALOPRAM 04 Medical ORAL) Branch ALBUTEROL 0 Yes [facility] INHALE 8-02 ity of 13:03: [place] [address] Medical Branch diphenhydrA Yes 25mg Take 25 mg [facility] MINE 25 mg 8-02 by mouth ity o f capsule 13:03: every 6 [place] [address] (six) Medical hours as Branch needed for Allergies. carbamazepi Yes Take by [facility] vers ne 8-02 mouth. ity of (TEGRETOL 13:03: [place] ORAL) Medical Branch citalopram Yes Take by Univ ers hydrobromid 8-02 mouth. ity of e 13:03: [place] (CITALOPRAM 04 Medical ORAL) Branch ALBUTEROL Yes [facility] INHALE 8 ity of 13:03: [address] Branch diphenhydrA Yes 25mg Take 25 mg [facility] MINE 25 mg 02 by mouth ity o f capsule 13:03: every 6 [place] [address] (six) Medical hours as Branch needed for Allergies. carbamazepi Yes Take by [facility] vers ne 8-02 mouth. ity of (TEGRETOL 13:03: [place] ORAL) Medical Branch citalopram Yes Take by Univ ers hydrobromid 8-02 mouth. ity of e 13:03: [place] (CITALOPRAM 04 Medical ORAL) Branch ALBUTEROL 0 Yes [facility] INHALE 8-02 ity of 13:03: [place] [address] Medical Branch ALBUTEROL 0 Yes [facility] INHALE 8- ity of 13:03: [place] [address] Medical Branch ALBUTEROL 0 Yes [facility] INHALE 8- ity of 13:03: [place] [address] Medical Branch ALBUTEROL 0 Yes [facility] INHALE 8- ity of 13:03: [address] ALBUTEROL Yes [facility] INHALE 8-02 ity of 13:03: [address] ALBUTEROL Yes [facility] INHALE 8-02 ity of 13:03: [address] ALBUTEROL Yes [facility] INHALE 8-02 ity of 13:03: [address] ALBUTEROL Yes [facility] INHALE 8-02 ity of 13:03: [address] ALBUTEROL Yes [facility] INHALE 8-02 ity of 13:03: [address] ALBUTEROL Yes [facility] INHALE 8-02 ity of 13:03: [address] ALBUTEROL Yes [facility] INHALE 8-02 ity of 13:03: [address] ALBUTEROL Yes [facility] INHALE 8-02 ity of 13:03: [address] ALBUTEROL Yes [facility] INHALE 8-02 ity of 13:03: [address] ALBUTEROL Yes [facility] INHALE 8-02 ity of 13:03: [address] ALBUTEROL Yes [facility] INHALE 8-02 ity of 13:03: [address] traZODone Yes [id number] 50mg Take 1 U nivers 50 mg 8-02 tablet by ity of tablet 00:00: mouth at [place] 00 bedtime. Medical Branch SERTraline Yes [id number] 50mg Take 1 [facility] (ZOLOFT) 50 8-02 tablet by ity of mg tablet 00:00: mouth [place] 00 the Medical morning. Branch traZODone Yes [id number] 50mg Take 1 U nivers 50 mg 8-02 tablet by ity of tablet 00:00: mouth at [place] 00 bedtime. [facility] Branch SERTraline Yes [id number] 50mg Take 1 [facility] (ZOLOFT) 50 8-02 tablet by ity of mg tablet 00:00: mouth [place] 00 the Medical morning. Branch traZODone Yes [id number] 50mg Take 1 U nivers 50 mg 8-02 tablet by ity of tablet 00:00: mouth at [place] 00 bedtime. Medical Branch SERTraline 2021-0 Yes [id number] 50mg Take 1 [facility] (ZOLOFT) 50 8-02 tablet by ity of mg tablet 00:00: mouth [place] 00 the Medical morning. Branch traZODone 2021-0 Yes [id number] 50mg Take 1 U nivers 50 mg 8-02 tablet by ity of tablet 00:00: mouth at [place] 00 bedtime. Medical Branch SERTraline 2021-0 Yes 50mg Take 1 [facility] (ZOLOFT) 50 8-02 tablet by ity of mg tablet 00:00: mouth [place] 00 the Medical morning. Branch traZODone 2021-0 Yes [id number] 50mg Take 1 U nivers 50 mg 8-02 tablet by ity of tablet 00:00: mouth at [place] 00 bedtime. Medical Branch SERTraline 2021-0 Yes [id number] 50mg Take 1 [facility] (ZOLOFT) 50 8-02 tablet by ity of mg tablet 00:00: mouth [place] 00 the Medical morning. Branch traZODone 2021-0 Yes [id number] 50mg Take 1 U nivers 50 mg 8-02 tablet by ity of tablet 00:00: mouth at [place] 00 bedtime. Medical Branch SERTraline 2021-0 Yes [id number] 50mg Take 1 [facility] (ZOLOFT) 50 8-02 tablet by ity of mg tablet 00:00: mouth [place] 00 the Medical morning. Branch traZODone 2021-0 Yes [id number] 50mg Take 1 U nivers 50 mg 8-02 tablet by ity of tablet 00:00: mouth at [place] 00 bedtime. Medical Branch SERTraline 2021-0 Yes [id number] 50mg Take 1 [facility] (ZOLOFT) 50 8-02 tablet by ity of mg tablet 00:00: mouth [place] 00 the Medical morning. Branch traZODone 2021-0 Yes [id number] 50mg Take 1 U nivers 50 mg 8-02 tablet by ity of tablet 00:00: mouth at [place] 00 bedtime. Medical Branch SERTraline 2021-0 Yes [id number] 50mg Take 1 [facility] (ZOLOFT) 50 8-02 tablet by ity of mg tablet 00:00: mouth [place] 00 the Medical morning. Branch traZODone 0 Yes [id number] 50mg Take 1 U nivers 50 mg 8-02 tablet by ity of tablet 00:00: mouth at [place] 00 bedtime. Medical Branch SERTraline Yes [id number] 50mg Take 1 [facility] (ZOLOFT) 50 8-02 tablet by ity of mg tablet 00:00: mouth [place] 00 the Medical morning. Branch traZODone 0 Yes [id number] 50mg Take 1 U nivers 50 mg 8-02 tablet by ity of tablet 00:00: mouth at [place] 00 bedtime. Medical Branch SERTraline Yes [id number] 50mg Take 1 [facility] (ZOLOFT) 50 8-02 tablet by ity of mg tablet 00:00: mouth [place] 00 the Medical morning. Branch traZODone Yes [id number] 50mg Take 1 U nivers 50 mg 8-02 tablet by ity of tablet 00:00: mouth at [place] 00 bedtime. Medical Branch SERTraline Yes [id number] 50mg Take 1 [facility] (ZOLOFT) 50 8-02 tablet by ity of mg tablet 00:00: mouth in [place] 00 the Medical morning. Branch traZODone 2021- No [id number] 50mg Take 1 [facility] 50 mg 8-02 10-18 tablet by ity of tablet 00:00: 00:00 mouth at [place] 00 :00 bedtime. Medical Branch SERTraline 2021- No [id number] 50mg Take 1 [facility] (ZOLOFT) 50 8-02 10-18 tablet by it y of mg tablet 00:00: 00:00 mouth in [place] as 00 :00 the Medical morning. Branch traZODone 2021- No [id number] 50mg Take 1 [facility] 50 mg 8-02 10-18 tablet by ity of tablet 00:00: 00:00 mouth at [place] 00 :00 bedtime. Medical Branch SERTraline 2021- No [id number] 50mg Take 1 [facility] (ZOLOFT) 50 8-02 10-18 tablet by it y of mg tablet 00:00: 00:00 mouth in [place] as 00 :00 the Medical morning. Branch traZODone 2021- No [id number] 50mg Take 1 [facility] 50 mg 8- 10-18 tablet by ity of tablet 00:00: 00:00 mouth at [place] 00 :00 bedtime. Medical Branch SERTraline 2021- No [id number] 50mg Take 1 [facility] (ZOLOFT) 50 8- 10-18 tablet by it y of mg tablet 00:00: 00:00 mouth in [facility] as 00 :00 the Medical morning. Branch traZODone 2021- No [id number] 50mg Take 1 [facility] 50 mg 8- 10-18 tablet by ity of tablet 00:00: 00:00 mouth at [place] 00 :00 bedtime. Medical Branch SERTraline 2021- No [id number] 50mg Take 1 [facility] (ZOLOFT) 50 8- 10-18 tablet by it y of mg tablet 00:00: 00:00 mouth in [facility] as 00 :00 the Medical morning. Branch sulfamethox 2021- No [id number] 1{tbl} Take 1 [facility] azole-trime - 08-06 tablet by it y of thoprim 00:00: 04:59 mouth in [place] (BACTRIM 00 :00 the Medical DS) 800-160 morning Branc h mg per and 1 tablet tablet in the evening. Do all this for 3 days. ibuprofen 0 Yes [id number] 600mg Take 1 [facility] 600 mg 7-15 tablet by ity of tablet 00:00: mouth [place] [address] every 6 Medical (six) Branch hours as needed for Pain (scale 4-6). ibuprofen 2021-0 Yes [id number] 600mg Take 1 [facility] 600 mg 7-15 tablet by ity of tablet 00:00: mouth [place] 00 every 6 Medical (six) Branch hours as needed for Pain (scale 4-6). ibuprofen 2021-0 Yes [id number] 600mg Take 1 [facility] 600 mg 7-15 tablet by ity of tablet 00:00: mouth [place] 00 every 6 Medical (six) Branch hours as needed for Pain (scale 4-6). ibuprofen 2021-0 Yes [id number] 600mg Take 1 [facility] 600 mg 7-15 tablet by ity of tablet 00:00: mouth [place] [address] every 6 Medical (six) Branch hours as needed for Pain (scale 4-6). ibuprofen 2022-0 Yes [id number] 600mg Take 1 [facility] 600 mg 7-15 tablet by ity of tablet 00:00: mouth [place] 00 every 6 Medical (six) Branch hours as needed for Pain (scale 4-6). ibuprofen 2022-0 Yes [id number] 600mg Take 1 [facility] 600 mg 7-15 tablet by ity of tablet 00:00: mouth [place] 00 every 6 Medical (six) Branch hours as needed for Pain (scale 4-6). ibuprofen 2022-0 Yes [id number] 600mg Take 1 [facility] 600 mg 7-15 tablet by ity of tablet 00:00: mouth [place] 00 every 6 Medical (six) Branch hours as needed for Pain (scale 4-6). ibuprofen 2022-0 Yes [id number] 600mg Take 1 [facility] 600 mg 7-15 tablet by ity of tablet 00:00: mouth [place] 00 every 6 Medical (six) Branch hours as needed for Pain (scale 4-6). ibuprofen 2022-0 Yes [id number] 600mg Take 1 [facility] 600 mg 7-15 tablet by ity of tablet 00:00: mouth [place] 00 every 6 Medical (six) Branch hours as needed for Pain (scale 4-6). ibuprofen 2022-0 Yes [id number] 600mg Take 1 [facility] 600 mg 7-15 tablet by ity of tablet 00:00: mouth [place] 00 every 6 Medical (six) Branch hours as needed for Pain (scale 4-6). ibuprofen 2022-0 Yes [id number] 600mg Take 1 [facility] 600 mg 7-15 tablet by ity of tablet 00:00: mouth [place] 00 every 6 Medical (six) Branch hours as needed for Pain (scale 4-6). ibuprofen 2022-0 2022- No [id number] 600mg Take 1 [facility] 600 mg 7-15 10-18 tablet by ity of tablet 00:00: 00:00 mouth [place] 00 :00 every 6 Medical (six) Branch hours as needed for Pain (scale 4-6). ibuprofen 2022-0 2022- No [id number] 600mg Take 1 [facility] 600 mg 7-15 10-18 tablet by ity of tablet 00:00: 00:00 mouth [place] 00 :00 every 6 Medical (six) Branch hours as needed for Pain (scale 4-6). ibuprofen 2022-0 2021- No [id number] 600mg Take 1 [facility] 600 mg 7-15 10-18 tablet by ity of tablet 00:00: 00:00 mouth [place] 00 :00 every 6 Medical (six) Branch hours as needed for Pain (scale 4-6). ibuprofen 2021-0 2021- No [id number] 600mg Take 1 [facility] 600 mg 7-15 [...] Indication s: acute pain bromphenira 2021-0 Yes [id number] 5mL Take 5 mL [facility] mine-pseudo 7-09 by mouth 4 it y of ephedrine-D 00:00: (four) [place] (BROMFED 00 times Medical DM) 2-30-10 daily as Bran ch mg/5 mL needed for syrup Congestion /Allergies or Cough. naproxen 2021-0 Yes [id number] 500mg Take 1 U nivers 500 mg 7-09 tablet by ity of tablet 00:00: mouth [place] 00 every 8 Medical (eight) Branch hours as needed for Pain (scale 4-6). cyclobenzap 2021-0 Yes [id number] 10mg Take 1 [facility] rine 10 mg 7-09 tablet by ity of tablet 00:00: mouth at [place] 00 bedtime as Medical needed for Branch Muscle Spasms. bromphenira 2021-0 Yes [id number] 5mL Take 5 mL [facility] mine-pseudo 7-09 by mouth 4 it y of ephedrine-D 00:00: (four) [place] (BROMFED 00 times Medical DM) 2-30-10 daily as Bran ch mg/5 mL needed for syrup Congestion /Allergies or Cough. naproxen 2021-0 Yes [id number] 500mg Take 1 [facility] n[facility] 500 mg 7-09 tablet by ity of tablet 00:00: mouth [place] 00 every 8 Medical (eight) Branch hours as needed for Pain (scale 4-6). cyclobenzap 2021-0 Yes [id number] 10mg Take 1 [facility] rine 10 mg 7-09 tablet by ity of tablet 00:00: mouth at [place] 00 bedtime as Medical needed for Branch Muscle Spasms. bromphenira 2021-0 Yes [id number] 5mL Take 5 mL [facility] mine-pseudo 7-09 by mouth 4 it y of ephedrine-D 00:00: (four) [place] (BROMFED 00 times Medical DM) 2-30-10 daily as Bran ch mg/5 mL needed for syrup Congestion /Allergies or Cough. naproxen 2021-0 Yes [id number] 500mg Take 1 [facility] 500 mg 7-09 tablet by ity of tablet 00:00: mouth [place] 00 every 8 Medical (eight) Branch hours as needed for Pain (scale 4-6). cyclobenzap 2021-0 Yes [id number] 10mg Take 1 [facility] rine 10 mg 7-09 tablet by ity of tablet 00:00: mouth at [place] 00 bedtime as Medical needed for Branch Muscle Spasms. bromphenira 2021-0 Yes [id number] 5mL Take 5 mL [facility] mine-pseudo 7-09 by mouth 4 it y of ephedrine-D 00:00: (four) [place] (BROMFED 00 times Medical DM) 2-30-10 daily as Bran ch mg/5 mL needed for syrup Congestion /Allergies or Cough. naproxen 2021-0 Yes [id number] 500mg Take 1 [facility] 500 mg 7-09 tablet by ity of tablet 00:00: mouth [place] 00 every 8 Medical (eight) Branch hours as needed for Pain (scale 4-6). cyclobenzap 2021-0 Yes [id number] 10mg Take 1 [facility] rine 10 mg 7-09 tablet by ity of tablet 00:00: mouth at [place] 00 bedtime as Medical needed for Branch Muscle Spasms. bromphenira 2-0 Yes [id number] 5mL Take 5 mL [facility] mine-pseudo 7-09 by mouth 4 it y of ephedrine-D 00:00: (four) [place] (BROMFED 00 times Medical DM) 2-30-10 daily as Bran ch mg/5 mL needed for syrup Congestion /Allergies or Cough. naproxen 2022-0 Yes [id number] 500mg Take 1 [facility] 500 mg 7-09 tablet by ity of tablet 00:00: mouth [place] 00 every 8 Medical (eight) Branch hours as needed for Pain (scale 4-6). cyclobenzap 2-0 Yes [id number] 10mg Take 1 [facility] rine 10 mg 7-09 tablet by ity of tablet 00:00: mouth at [place] 00 bedtime as Medical needed for Branch Muscle Spasms. bromphenira 2021-0 Yes [id number] 5mL Take 5 mL [facility] mine-pseudo 7-09 by mouth 4 it y of ephedrine-D 00:00: (four) [place] (BROMFED 00 times Medical DM) 2-30-10 daily as Bran ch mg/5 mL needed for syrup Congestion /Allergies or Cough. naproxen 2021-0 Yes [id number] 500mg Take 1 [facility] 500 mg 7-09 tablet by ity of tablet 00:00: mouth [place] 00 every 8 Medical (eight) Branch hours as needed for Pain (scale 4-6). cyclobenzap 2021-0 Yes [id number] 10mg Take 1 [facility] rine 10 mg 7-09 tablet by ity of tablet 00:00: mouth at [place] 00 bedtime as Medical needed for Branch Muscle Spasms. bromphenira 2021-0 Yes [id number] 5mL Take 5 mL [facility] mine-pseudo 7-09 by mouth 4 it y of ephedrine-D 00:00: (four) [place] (BROMFED 00 times Medical DM) 2-30-10 daily as Bran ch mg/5 mL needed for syrup Congestion /Allergies or Cough. naproxen 2-0 Yes [id number] 500mg Take 1 [facility] 500 mg 7-09 tablet by ity of tablet 00:00: mouth [place] 00 every 8 Medical (eight) Branch hours as needed for Pain (scale 4-6). cyclobenzap 2022-0 Yes [id number] 10mg Take 1 [facility] rine 10 mg 7-09 tablet by ity of tablet 00:00: mouth at [place] 00 bedtime as Medical needed for Branch Muscle Spasms. bromphenira 2022-0 Yes [id number] 5mL Take 5 mL [facility] mine-pseudo 7-09 by mouth 4 it y of ephedrine-D 00:00: (four) [place] (BROMFED 00 times Medical DM) 2-30-10 daily as Bran ch mg/5 mL needed for syrup Congestion /Allergies or Cough. naproxen 2-0 Yes [id number] 500mg Take 1 [facility] n[facility] 500 mg 7-09 tablet by ity of tablet 00:00: mouth [place] 00 every 8 Medical (eight) Branch hours as needed for Pain (scale 4-6). cyclobenzap 2021-0 Yes [id number] 10mg Take 1 [facility] rine 10 mg 7-09 tablet by ity of tablet 00:00: mouth at [place] 00 bedtime as Medical needed for Branch Muscle Spasms. bromphenira 2021-0 Yes [id number] 5mL Take 5 mL [facility] mine-pseudo 7-09 by mouth 4 it y of ephedrine-D 00:00: (four) [place] (BROMFED 00 times Medical DM) 2-30-10 daily as Bran ch mg/5 mL needed for syrup Congestion /Allergies or Cough. naproxen 2021-0 Yes [id number] 500mg Take 1 [facility] n[facility] 500 mg 7-09 tablet by ity of tablet 00:00: mouth [place] 00 every 8 Medical (eight) Branch hours as needed for Pain (scale 4-6). cyclobenzap 2021-0 Yes [id number] 10mg Take 1 [facility] rine 10 mg 7-09 tablet by ity of tablet 00:00: mouth at [place] 00 bedtime as Medical needed for Branch Muscle Spasms. bromphenira 2-0 Yes [id number] 5mL Take 5 mL [facility] mine-pseudo 7-09 by mouth 4 it y of ephedrine-D 00:00: (four) [place] (BROMFED 00 times Medical DM) 2-30-10 daily as Bran ch mg/5 mL needed for syrup Congestion /Allergies or Cough. naproxen 2022-0 Yes [id number] 500mg Take 1 [facility] 500 mg 7-09 tablet by ity of tablet 00:00: mouth [place] 00 every 8 Medical (eight) Branch hours as needed for Pain (scale 4-6). cyclobenzap 2022-0 Yes [id number] 10mg Take 1 [facility] rine 10 mg 7-09 tablet by ity of tablet 00:00: mouth at [place] 00 bedtime as Medical needed for Branch Muscle Spasms. bromphenira 2021-0 Yes [id number] 5mL Take 5 mL [facility] mine-pseudo 7-09 by mouth 4 it y of ephedrine-D 00:00: (four) [place] (BROMFED 00 times Medical DM) 2-30-10 daily as Bran ch mg/5 mL needed for syrup Congestion /Allergies or Cough. naproxen 0 Yes [id number] 500mg Take 1 [facility] 500 mg 7-09 tablet by ity of tablet 00:00: mouth [place] 00 every 8 Medical (eight) Branch hours as needed for Pain (scale 4-6). cyclobenzap 0 Yes [id number] 10mg Take 1 [facility] rine 10 mg 7-09 tablet by ity of tablet 00:00: mouth at [place] 00 bedtime as Medical needed for Branch Muscle Spasms. bromphenira 0 Yes [id number] 5mL Take 5 mL [facility] mine-pseudo 7-09 by mouth 4 it y of ephedrine-D 00:00: (four) [place] (BROMFED 00 times Medical DM) 2-30-10 daily as Bran ch mg/5 mL needed for syrup Congestion /Allergies or Cough. bromphenira 0 Yes [id number] 5mL Take 5 mL [facility] mine-pseudo 7-09 by mouth 4 it y of ephedrine-D 00:00: (four) [place] (BROMFED 00 times Medical DM) 2-30-10 daily as Bran ch mg/5 mL needed for syrup Congestion /Allergies or Cough. bromphenira 2021-0 Yes [id number] 5mL Take 5 mL [facility] mine-pseudo 7-09 by mouth 4 it y of ephedrine-D 00:00: (four) [place] (BROMFED 00 times Medical DM) 2-30-10 daily as Bran ch mg/5 mL needed for syrup Congestion /Allergies or Cough. bromphenira 2021-0 Yes [id number] 5mL Take 5 mL [facility] mine-pseudo 7-09 by mouth 4 it y of ephedrine-D 00:00: (four) [place] (BROMFED 00 times Medical DM) 2-30-10 daily as Bran ch mg/5 mL needed for syrup Congestion /Allergies or Cough. bromphenira 2-0 Yes [id number] 5mL Take 5 mL [facility] mine-pseudo 7-09 by mouth 4 it y of ephedrine-D 00:00: (four) [place] (BROMFED 00 times Medical DM) 2-30-10 daily as Bran ch mg/5 mL needed for syrup Congestion /Allergies or Cough. bromphenira 2021-0 Yes [id number] 5mL Take 5 mL [facility] mine-pseudo 7-09 by mouth 4 it y of ephedrine-D 00:00: (four) [place] (BROMFED 00 times Medical DM) 2-30-10 daily as Bran ch mg/5 mL needed for syrup Congestion /Allergies or Cough. bromphenira 2021-0 Yes [id number] 5mL Take 5 mL [facility] mine-pseudo 7-09 by mouth 4 it y of ephedrine-D 00:00: (four) [place] (BROMFED 00 times Medical DM) 2-30-10 daily as Bran ch mg/5 mL needed for syrup Congestion /Allergies or Cough. bromphenira 2021-0 Yes [id number] 5mL Take 5 mL [facility] mine-pseudo 7-09 by mouth 4 it y of ephedrine-D 00:00: (four) [place] (BROMFED 00 times Medical DM) 2-30-10 daily as Bran ch mg/5 mL needed for syrup Congestion /Allergies or Cough. bromphenira 2021-0 Yes [id number] 5mL Take 5 mL [facility] mine-pseudo 7-09 by mouth 4 it y of ephedrine-D 00:00: (four) [place] (BROMFED 00 times Medical DM) 2-30-10 daily as Bran ch mg/5 mL needed for syrup Congestion /Allergies or Cough. bromphenira 2021-0 Yes [id number] 5mL Take 5 mL [facility] mine-pseudo 7-09 by mouth 4 it y of ephedrine-D 00:00: (four) [place] (BROMFED 00 times Medical DM) 2-30-10 daily as Bran ch mg/5 mL needed for syrup Congestion /Allergies or Cough. bromphenira 2-0 Yes [id number] 5mL Take 5 mL [facility] mine-pseudo 7-09 by mouth 4 it y of ephedrine-D 00:00: (four) [place] (BROMFED 00 times Medical DM) 2-30-10 daily as Bran ch mg/5 mL needed for syrup Congestion /Allergies or Cough. bromphenira 2021-0 Yes [id number] 5mL Take 5 mL [facility] mine-pseudo 7-09 by mouth 4 it y of ephedrine-D 00:00: (four) [place] (BROMFED 00 times Medical DM) 2-30-10 daily as Bran ch mg/5 mL needed for syrup Congestion /Allergies or Cough. bromphenira 2021-0 Yes [id number] 5mL Take 5 mL [facility] mine-pseudo 7-09 by mouth 4 it y of ephedrine-D 00:00: (four) [place] (BROMFED 00 times Medical DM) 2-30-10 daily as Bran ch mg/5 mL needed for syrup Congestion /Allergies or Cough. bromphenira 2021-0 Yes [id number] 5mL Take 5 mL [facility] mine-pseudo 7-09 by mouth 4 it y of ephedrine-D 00:00: (four) [place] (BROMFED 00 times Medical DM) 2-30-10 daily as Bran ch mg/5 mL needed for syrup Congestion /Allergies or Cough. bromphenira 2021- No [id number] 5mL Take 5 mL [facility] mine-pseudo 7 11-12 by mouth 4 i ty of ephedrine-D 00:00: 00:00 (four) [place] M (BROMFED 00 :00 times Medical DM) 2-30-10 daily as Bran ch mg/5 mL needed for syrup Congestion /Allergies or Cough. naproxen 2021- No [id number] 500mg Take 1 [facility] 500 mg 11-18 10-18 tablet by ity of tablet 00:00: 00:00 mouth [place] 00 :00 every 8 Medical (eight) Branch hours as needed for Pain (scale 4-6). cyclobenzap 2021- No [id number] 10mg Take 1 [facility] rine 10 mg 11-18 10-18 tablet by ity of tablet 00:00: 00:00 mouth at [place] 00 :00 bedtime as Medical needed for Branch Muscle Spasms. naproxen No [id number] 500mg Take 1 [facility] 500 mg 7-09 10-18 tablet by ity of tablet 00:00: 00:00 mouth [place] 00 :00 every 8 Medical (eight) Branch hours as needed for Pain (scale 4-6). cyclobenzap 2021- No [id number] 10mg Take 1 [facility] rine 10 mg 7-09 10-18 tablet by ity of tablet 00:00: 00:00 mouth at [place] 00 :00 bedtime as Medical needed for Branch Muscle Spasms. naproxen No [id number] 500mg Take 1 [facility] 500 mg 7-09 10-18 tablet by ity of tablet 00:00: 00:00 mouth [place] 00 :00 every 8 Medical (eight) Branch hours as needed for Pain (scale 4-6). cyclobenzap No [id number] 10mg Take 1 [facility] rine 10 mg 7- 10-18 tablet by ity of tablet 00:00: 00:00 mouth at [place] 00 :00 bedtime as Medical needed for Branch Muscle Spasms. naproxen No [id number] 500mg Take 1 [facility] 500 mg 7-09 10-18 tablet by ity of tablet 00:00: 00:00 mouth [place] 00 :00 every 8 Medical (eight) Branch hours as needed for Pain (scale 4-6). cyclobenzap 2021- No [id number] 10mg Take 1 [facility] rine 10 mg 7- 10-18 tablet by ity of tablet 00:00: 00:00 mouth at [place] 00 :00 bedtime as Medical needed for Branch Muscle Spasms. ibuprofen Yes [id number] 605mg Take 30.25 [facility] 100 mg/5 mL 6-15 mL by ity of oral 00:00: mouth [place] suspension 00 every 6 Medica l (six) Branch hours as needed for Pain (scale 4-6) or Temp > 38.5 C. ibuprofen Yes [id number] 605mg Take 30.25 [facility] 100 mg/5 mL 6-15 mL by ity of oral 00:00: mouth [place] suspension 00 every 6 Medica l (six) Branch hours as needed for Pain (scale 4-6) or Temp > 38.5 C. ibuprofen 2021-0 Yes [id number] 605mg Take 30.25 [facility] 100 mg/5 mL 6-15 mL by ity of oral 00:00: mouth [place] suspension 00 every 6 Medica l (six) Branch hours as needed for Pain (scale 4-6) or Temp > 38.5 C. ibuprofen 2021-0 Yes [id number] 605mg Take 30.25 [facility] 100 mg/5 mL 6-15 mL by ity of oral 00:00: mouth [place] suspension 00 every 6 Medica l (six) Branch hours as needed for Pain (scale 4-6) or Temp > 38.5 C. ibuprofen 2021-0 Yes [id number] 605mg Take 30.25 [facility] 100 mg/5 mL 6-15 mL by ity of oral 00:00: mouth [place] suspension 00 every 6 Medica l (six) Branch hours as needed for Pain (scale 4-6) or Temp > 38.5 C. ibuprofen 2021-0 Yes [id number] 605mg Take 30.25 [facility] 100 mg/5 mL 6-15 mL by ity of oral 00:00: mouth [place] suspension 00 every 6 Medica l (six) Branch hours as needed for Pain (scale 4-6) or Temp > 38.5 C. ibuprofen 2021-0 Yes [id number] 605mg Take 30.25 [facility] 100 mg/5 mL 6-15 mL by ity of oral 00:00: mouth [place] suspension 00 every 6 Medica l (six) Branch hours as needed for Pain (scale 4-6) or Temp > 38.5 C. ibuprofen 2021-0 Yes [id number] 605mg Take 30.25 [facility] 100 mg/5 mL 6-15 mL by ity of oral 00:00: mouth [place] suspension 00 every 6 Medica l (six) Branch hours as needed for Pain (scale 4-6) or Temp > 38.5 C. ibuprofen 2021-0 Yes [id number] 605mg Take 30.25 [facility] 100 mg/5 mL 6-15 mL by ity of oral 00:00: mouth [place] suspension 00 every 6 Medica l (six) Branch hours as needed for Pain (scale 4-6) or Temp > 38.5 C. ibuprofen 2021-0 Yes [id number] 605mg Take 30.25 [facility] 100 mg/5 mL 6-15 mL by ity of oral 00:00: mouth [place] suspension 00 every 6 Medica l (six) Branch hours as needed for Pain (scale 4-6) or Temp > 38.5 C. ibuprofen Yes [id number] 605mg Take 30.25 [facility] 100 mg/5 mL 6-15 mL by ity of oral 00:00: mouth [place] suspension 00 every 6 Medica l (six) Branch hours as needed for Pain (scale 4-6) or Temp > 38.5 C. ibuprofen 2021- No [id number] 605mg Take 30.25 [facility] 100 mg/5 mL 6-15 10-18 mL by ity of oral 00:00: 00:00 mouth [place] suspension 00 :00 every 6 Medica l (six) Branch hours as needed for Pain (scale 4-6) or Temp > 38.5 C. ibuprofen 2021- No [id number] 605mg Take 30.25 [facility] 100 mg/5 mL 6-15 10-18 mL by ity of oral 00:00: 00:00 mouth [place] suspension 00 :00 every 6 Medica l (six) Branch hours as needed for Pain (scale 4-6) or Temp > 38.5 C. ibuprofen 2021- No [id number] 605mg Take 30.25 [facility] 100 mg/5 mL 6-15 10-18 mL by ity of oral 00:00: 00:00 mouth [place] suspension 00 :00 every 6 Medica l (six) Branch hours as needed for Pain (scale 4-6) or Temp > 38.5 C. ibuprofen 2021- No [id number] 605mg Take 30.25 [facility] 100 mg/5 mL 6-15 10-18 mL by ity of oral 00:00: 00:00 mouth [place] suspension 00 :00 every 6 Medica l (six) Branch hours as needed for Pain (scale 4-6) or Temp > 38.5 C. acetaminoph 2021- No [id number] 608mg Take 19 mL [facility] en 160 mg/5 6-15 08-02 by mouth ity of mL liquid 00:00: 00:00 every 6 [place] 00 :00 (six) Medical hours as Branch needed for Fever. DULoxetine 0 Yes [facility] 60 mg 5-27 ity of capsule 00:00: [place] 00 Medical Branch DULoxetine 2021-0 Yes [facility] 60 mg 5-27 ity of capsule 00:00: [place] 00 Medical Branch DULoxetine 2-0 Yes [facility] 60 mg 5-27 ity of capsule 00:00: [place] [address] Medical Branch DULoxetine 2-0 Yes [facility] 60 mg 5-27 ity of capsule 00:00: [place] [address] Medical Branch DULoxetine 2021-0 Yes [facility] 60 mg 5-27 ity of capsule 00:00: [place] [address] Medical Branch DULoxetine 2021-0 Yes [facility] 60 mg 5-27 ity of capsule 00:00: [place] [address] Medical Branch DULoxetine 2021-0 Yes [facility] 60 mg 5-27 ity of capsule 00:00: [place] [address] Medical Branch DULoxetine 2021-0 Yes [facility] 60 mg 5-27 ity of capsule 00:00: [place] [address] Medical Branch DULoxetine 2021-0 Yes [facility] 60 mg 5-27 ity of capsule 00:00: [place] [address] Medical Branch DULoxetine 2021-0 Yes [facility] 60 mg 5-27 ity of capsule 00:00: [place] [address] Medical Branch DULoxetine 2021-0 Yes [facility] 60 mg 5-27 ity of capsule 00:00: [place] 00 Medical Branch DULoxetine 2021-0 2022- No Univer s 60 mg 5-27 10-18 ity of capsule 00:00: 00:00 [place] 00 :00 Medical Branch DULoxetine 2-0 2- No Univer s 60 mg 5-27 10-18 ity of capsule 00:00: 00:00 [place] 00 :00 Medical Branch DULoxetine 2-0 2022- No Univer s 60 mg 5-27 10-18 ity of capsule 00:00: 00:00 [place] 00 :00 Medical Branch DULoxetine 2-0 2022- No Univer s 60 mg 5-27 10-18 ity of capsule 00:00: 00:00 [place] 00 :00 Medical Branch traZODone 2021-0 2- No [facility] 50 mg 5-27 08-02 ity of tablet 00:00: 00:00 [place] 00 :00 Medical Branch mometasone 2-0 Yes [id number] 1{spray Use 1 [facility] 50 5-19 } [place] in ity of mcg/actuati 00:00: each [place] on nasal 00 nostril 2 Medica l spray (two) Branch times daily. mometasone 2021-0 Yes [id number] 1{spray Use 1 [facility] 50 5-19 } [place] in ity of mcg/actuati 00:00: each [place] on nasal 00 nostril 2 Medica l spray (two) Branch times daily. mometasone 2021-0 Yes [id number] 1{spray Use 1 [facility] 50 5-19 } [place] in ity of mcg/actuati 00:00: each [place] on nasal 00 nostril 2 Medica l spray (two) Branch times daily. mometasone 2021-0 Yes [id number] 1{spray Use 1 [facility] 50 5-19 } [place] in ity of mcg/actuati 00:00: each [place] on nasal 00 nostril 2 Medica l spray (two) Branch times daily. mometasone 2021-0 Yes [id number] 1{spray Use 1 [facility] 50 5-19 } [place] in ity of mcg/actuati 00:00: each [place] on nasal 00 nostril 2 Medica l spray (two) Branch times daily. mometasone 2021-0 Yes [id number] 1{spray Use 1 [facility] 50 5-19 } [place] in ity of mcg/actuati 00:00: each [place] on nasal 00 nostril 2 Medica l spray (two) Branch times daily. mometasone 2021-0 Yes [id number] 1{spray Use 1 [facility] 50 5-19 } [place] in ity of mcg/actuati 00:00: each [place] on nasal 00 nostril 2 Medica l spray (two) Branch times daily. mometasone 2021-0 Yes [id number] 1{spray Use 1 [facility] 50 5-19 } [place] in ity of mcg/actuati 00:00: each [place] on nasal 00 nostril 2 Medica l spray (two) Branch times daily. mometasone 2021-0 Yes [id number] 1{spray Use 1 [facility] 50 5-19 } [place] in ity of mcg/actuati 00:00: each [place] on nasal 00 nostril 2 Medica l spray (two) Branch times daily. mometasone 2021-0 Yes [id number] 1{spray Use 1 [facility] 50 5-19 } [place] in ity of mcg/actuati 00:00: each [place] on nasal 00 nostril 2 Medica l spray (two) Branch times daily. mometasone Yes [id number] 1{spray Use 1 [facility] 50 5-19 } [place] in ity of mcg/actuati 00:00: each [place] on nasal 00 nostril 2 Medica l spray (two) Branch times daily. mometasone 2021- No [id number] 1{spray Use 1 [facility] 50 5-19 10-18 } [place] in ity of mcg/actuati 00:00: 00:00 each [place] on nasal 00 :00 nostril 2 Medica l spray (two) Branch times daily. mometasone 2021- No [id number] 1{spray Use 1 [facility] 50 5-19 10-18 } [place] in ity of mcg/actuati 00:00: 00:00 each [place] on nasal 00 :00 nostril 2 Medica l spray (two) Branch times daily. mometasone 2021- No [id number] 1{spray Use 1 [facility] 50 5-19 10-18 } [place] in ity of mcg/actuati 00:00: 00:00 each [place] on nasal 00 :00 nostril 2 Medica l spray (two) Branch times daily. mometasone 2021- No [id number] 1{spray Use 1 [facility] 50 5-19 10-18 } [place] in ity of mcg/actuati 00:00: 00:00 each [place] on nasal 00 :00 nostril 2 Medica l spray (two) Branch times daily. cetirizine Yes [id number] 10mg Take 1 U nivers (ZYRTEC) 10 5-16 tablet by ity of mg tablet 00:00: mouth [place] 00 daily. Medical Branch cetirizine Yes [id number] 10mg Take 1 U nivers (ZYRTEC) 10 5-16 tablet by ity of mg tablet 00:00: mouth [place] 00 daily. Medical Branch cetirizine Yes [id number] 10mg Take 1 U nivers (ZYRTEC) 10 5-16 tablet by ity of mg tablet 00:00: mouth 00 daily. Medical Branch cetirizine Yes [id number] 10mg Take 1 U nivers (ZYRTEC) 10 5-16 tablet by ity of mg tablet 00:00: mouth [place] 00 daily. [facility] cetirizine Yes [id number] 10mg Take 1 U nivers (ZYRTEC) 10 5-16 tablet by ity of mg tablet 00:00: mouth [place] 00 daily. [facility] Branch cetirizine Yes [id number] 10mg Take 1 U nivers (ZYRTEC) 10 5-16 tablet by ity of mg tablet 00:00: mouth [place] 00 daily. [facility] Branch cetirizine Yes [id number] 10mg Take 1 U nivers (ZYRTEC) 10 5-16 tablet by ity of mg tablet 00:00: mouth [place] 00 daily. [facility] cetirizine Yes [id number] 10mg Take 1 U nivers (ZYRTEC) 10 5-16 tablet by ity of mg tablet 00:00: mouth [place] 00 daily. [facility] cetirizine Yes [id number] 10mg Take 1 U nivers (ZYRTEC) 10 5-16 tablet by ity of mg tablet 00:00: mouth [place] 00 daily. [facility] cetirizine Yes [id number] 10mg Take 1 U nivers (ZYRTEC) 10 5-16 tablet by ity of mg tablet 00:00: mouth [place] 00 daily. [facility] cetirizine Yes [id number] 10mg Take 1 U nivers (ZYRTEC) 10 5-16 tablet by ity of mg tablet 00:00: mouth [place] 00 daily. [facility] cetirizine 2021- No [id number] 10mg Take 1 Univers (ZYRTEC) 10 5-16 10-18 tablet by it y of mg tablet 00:00: 00:00 mouth [place] 00 :00 daily. [facility] cetirizine 2021- No [id number] 10mg Take 1 [facility] (ZYRTEC) 10 5-16 10-18 tablet by it y of mg tablet 00:00: 00:00 mouth [place] 00 :00 daily. [facility] cetirizine 2021- No [id number] 10mg Take 1 [facility] (ZYRTEC) 10 5-16 10-18 tablet by it y of mg tablet 00:00: 00:00 mouth [place] 00 :00 daily. Medical Branch cetirizine 2-0 2- No [id number] 10mg Take 1 [facility] (ZYRTEC) 10 5-16 10-18 tablet by it y of mg tablet 00:00: 00:00 mouth [place] 00 :00 daily. Medical Branch DULoxetine 2-0 Yes [facility] 30 mg 5-09 ity of capsule 00:00: [place] 00 Medical Branch gabapentin 2022-0 Yes [facility] 300 mg 5-09 ity of capsule 00:00: [place] 00 Medical Branch ondansetron 2-0 Yes Univer s 4 mg tablet 5-09 ity of 00:00: [place] 00 Medical Branch DULoxetine 2-0 Yes [facility] 30 mg 5-09 ity of capsule 00:00: [place] 00 Medical Branch gabapentin 2022-0 Yes [facility] 300 mg 5-09 ity of capsule 00:00: [place] 00 Medical Branch ondansetron 2022-0 Yes Univer s 4 mg tablet 5-09 ity of 00:00: [place] 00 Medical Branch DULoxetine 2-0 Yes Univers [...] 30 mg 5-09 ity of capsule 00:00: [place] [address] Medical Branch gabapentin 2022-0 Yes [facility] 300 mg 5-09 ity of capsule 00:00: [place] 00 Medical Branch ondansetron 2022-0 Yes Univer s 4 mg tablet 5-09 ity of 00:00: [place] 00 Medical Branch DULoxetine 2022-0 2022- No Univer s 30 mg 5-09 10-18 ity of capsule 00:00: 00:00 [place] 00 :00 Medical Branch gabapentin 2022-0 2022- No Univer s 300 mg 5-09 10-18 ity of capsule 00:00: 00:00 [place] [...] mg tablet 4-22 ity of 00:00: [place] 00 Medical Branch amLODIPine 2022-0 Yes 5mg Take 5 mg Un sushant 5 mg tablet 4-22 by mouth. ity of 00:00: [place] 00 Medical Branch amLODIPine 2022-0 Yes Univers 5 mg tablet 4-22 ity of 00:00: [place] 00 Medical Branch [...] ity of 00:00: [place] Medical Branch amLODIPine 2-0 Yes Univers 5 [...] of 00:00: [place] 00 Medical Branch amLODIPine 2-0 Yes [facility] 5 mg tablet 09-01 ity [...] 00:00 [place] 00 :00 Medical Branch buPROPion 2-0 Yes [facility] XL 150 mg 4-20 ity of 24 hr 00:00: [place] tablet 00 Medical Branch buPROPion 2-0 Yes [facility] XL 150 mg 4-20 ity of 24 hr 00:00: [place] tablet 00 Medical Branch buPROPion 2-0 Yes [facility] XL 150 mg 4-20 ity of 24 hr 00:00: [place] tablet 00 Medical Branch buPROPion 2022-0 Yes [facility] XL 150 mg 4-20 ity of 24 hr 00:00: [place] tablet 00 Medical Branch buPROPion Yes [facility] XL 150 mg 4-20 ity of 24 hr 00:00: [place] tablet [facility] Branch buPROPion Yes Univers XL 150 mg 4-20 ity of 24 hr 00:00: [place] tablet [facility] Branch buPROPion Yes [facility] XL 150 mg 4-20 ity of 24 hr 00:00: [place] tablet [facility] Branch buPROPion Yes [facility] XL 150 mg 4-20 ity of 24 hr 00:00: [place] tablet [facility] Branch buPROPion Yes [facility] XL 150 mg 4-20 ity of 24 hr 00:00: [place] tablet [facility] Branch buPROPion Yes [facility] XL 150 mg 4-20 ity of 24 hr 00:00: [place] tablet [facility] Branch buPROPion Yes Univers XL 150 mg 4-20 ity of 24 hr 00:00: [place] tablet [facility] Branch buPROPion 2022- No 150mg Take 150 Un sushant XL 150 mg 4-20 04-21 mg by ity of 24 hr 00:00: 04:59 mouth. [place] tablet 00 :00 [facility] buPROPion 2022- No 150mg Take 150 Un sushant XL 150 mg 4-20 04-21 mg by ity of 24 hr 00:00: 04:59 mouth. [place] tablet 00 :00 [facility] buPROPion 2022- No 150mg Take 150 Un sushant XL 150 mg 4-20 04-21 mg by ity of 24 hr 00:00: 04:59 mouth. [place] tablet 00 :00 [facility] Branch buPROPion 2022- No 150mg Take 150 Un sushant XL 150 mg 4-20 04-21 mg by ity of 24 hr 00:00: 04:59 mouth. [place] tablet 00 :00 [facility] buPROPion 2022- No 150mg Take 150 Un sushant XL 150 mg 4-20 04-21 mg by ity of 24 hr 00:00: 04:59 mouth. [place] tablet 00 :00 [facility] buPROPion 3- No 150mg Take 150 Un [...] :00 Medical Branch buPROPion 0 2021- No 150mg Take 150 Un sushant XL 150 mg 4-20 10-18 mg by ity of 24 hr 00:00: 00:00 mouth. [place] tablet 00 :00 [facility] buPROPion 0 2021- No Univers XL 150 mg 4-20 10-18 ity of 24 hr 00:00: 00:00 [place] tablet 00 :00 [facility] buPROPion 0 2021- No 150mg Take 150 Un sushant [...] mouth. [place] tablet 00 : Medical Branch buPROPion 2021- No Univers XL [...] by ity of tablet 00:00: mouth 2 [place] 00 (two) Medical times Branch daily with meals. losartan 50 2020- Yes 50mg Take 1 Univ ers mg tablet 2-30 tablet by ity o f 00:00: mouth 2 [place] 00 (two) Medical times Branch daily. carvediloL 2020-2021- [...] :00 (two) Medical times Branch daily. FLUoxetine 2021-0 Yes Other 20mg Take 1 Univ ers [...] Medical 20 mg QPM Branch methocarbam Yes Pharmacy Stock Clerk of 500mg Take 1 Univers oL 4-08 [...] ity of mg tablet 00:00: mouth 2 [place] (two) Medical times Branch daily. lidocaine 5 Yes Renal colic 1{patch Apply 1 Univers % (700 3-12 on right } Patch to ity o f mg/patch) 00:00: side area(s) [place] patch 00 every 24 Medical (twenty-fo Branch ur) hours as needed for Localized pain. topiramate Yes 25mg Take 1 Unive rs 25 mg 1-05 tablet by ity of tablet 00:00: mouth 2 [place] (two) Medical times Branch daily. Immunizations Ordered Filled Immunization Date Status Comments [facility] e Immunization Name Name Influenza Virus 2022-02-27 [...] 2021-06-11 Completed Universit y of Vaccine 00:00:00 [facility] Influenza Virus 2021-06-11 Completed Universit y of Vaccine 00:00:00 [facility] Influenza Virus 2021-06-11 Completed Universit y of Vaccine 00:00:00 [facility] Influenza Virus 2021-06-11 Completed Universit y of Vaccine 00:00:00 [facility] Influenza Virus 2021-06-11 Completed Universit y of Vaccine 00:00:00 [facility] Influenza Virus 2021-06-11 Completed Universit y of Vaccine 00:00:00 [facility] Influenza Virus 2021-06-11 Completed Universit y of Vaccine 00:00:00 [facility] Influenza Virus 2021-06-11 Completed Universit y of Vaccine 00:00:00 [facility] Influenza Virus 2021-06-11 Completed Universit y of Vaccine 00:00:00 [facility] Influenza Virus 2021-06-11 Completed Universit y of Vaccine 00:00:00 [facility] Influenza Virus 2021-06-11 Completed Universit y of Vaccine 00:00:00 [facility] Influenza Virus 2021-06-11 Completed Universit y of Vaccine 00:00:00 [facility] Influenza Virus 2021-06-11 Completed Universit y of Vaccine 00:00:00 [facility] Influenza Virus 2021-06-11 Completed Universit y of Vaccine 00:00:00 [facility] Influenza Virus 2021-06-11 Completed Universit y of Vaccine 00:00:00 [facility] Influenza Virus 2021-06-11 Completed Universit y of Vaccine 00:00:00 [facility] Influenza Virus 2021-06-11 Completed Universit y of Vaccine 00:00:00 [facility] Influenza Virus 2021-06-11 Completed Universit y of Vaccine 00:00:00 [facility] Influenza Virus 2021-06-11 Completed Universit y of Vaccine 00:00:00 [facility] Influenza Virus 2021-06-11 Completed Universit y of Vaccine 00:00:00 [facility] Influenza Virus 2021-06-11 Completed Universit y of Vaccine 00:00:00 [facility] Influenza Virus 2021-06-11 Completed Universit y of Vaccine 00:00:00 [facility] Influenza Virus 2021-06-11 Completed Universit y of Vaccine 00:00:00 [facility] Influenza Virus 2021-06-11 Completed Universit y of Vaccine 00:00:00 [facility] Influenza Virus 2021-06-11 Completed Universit y of Vaccine 00:00:00 [facility] Influenza Virus 2021-06-11 Completed Universit y of Vaccine 00:00:00 [facility] Influenza Virus 2021-06-11 Completed Universit y of Vaccine 00:00:00 [facility] Influenza Virus 2021-06-11 Completed Universit y of Vaccine 00:00:00 [facility] Influenza Virus 2021-06-11 Completed Universit y of Vaccine 00:00:00 [facility] Influenza Virus 2021-06-11 Completed Universit y of Vaccine 00:00:00 [facility] Influenza Virus 2021-06-11 Completed Universit y of Vaccine 00:00:00 [facility] Influenza Virus 2021-06-11 Completed Universit y of Vaccine 00:00:00 [facility] Influenza Virus 2021-06-11 Completed Universit y of Vaccine 00:00:00 [facility] Influenza Virus 2021-06-11 Completed Universit y of Vaccine 00:00:00 [facility] Influenza Virus 2021-06-11 Completed Universit y of Vaccine 00:00:00 [facility] Influenza Virus 2021-06-11 Completed Universit y of Vaccine 00:00:00 [facility] Influenza Virus 2021-06-11 Completed Universit y of Vaccine 00:00:00 [facility] Influenza Virus 2021-06-11 Completed Universit y of Vaccine 00:00:00 [facility] Influenza Virus 2021-06-11 Completed Universit y of Vaccine 00:00:00 [facility] Influenza Virus 2021-06-11 Completed Universit y of Vaccine 00:00:00 [facility] Influenza Virus 2021-06-11 Completed Universit y of Vaccine 00:00:00 [facility] Influenza Virus 2020-05-19 Completed Universit y of Vaccine 00:00:00 [facility] Influenza Virus 2020-05-19 Completed Universit y of Vaccine 00:00:00 [facility] Influenza Virus 2020-05-19 Completed Universit y of Vaccine 00:00:00 [facility] Influenza Virus 2020-05-19 Completed Universit y of Vaccine 00:00:00 [facility] Influenza Virus 2020-05-19 Completed Universit y of Vaccine 00:00:00 [facility] Influenza Virus 2020-05-19 Completed Universit y of Vaccine 00:00:00 [facility] Influenza Virus 2020-05-19 Completed Universit y of Vaccine 00:00:00 [facility] Influenza Virus 2020-05-19 Completed Universit y of Vaccine 00:00:00 [facility] Influenza Virus 2020-05-19 Completed Universit y of Vaccine 00:00:00 [facility] Influenza Virus 2020-05-19 Completed Universit y of Vaccine 00:00:00 [place] [facility] Influenza Virus 2020-05-19 Completed Universit y of Vaccine 00:00:00 [place] [facility] Influenza Virus 2020-05-19 Completed Universit y of Vaccine 00:00:00 [place] [facility] Influenza Virus 2020-05-19 Completed Universit y of Vaccine 00:00:00 [place] [facility] Influenza Virus 2020-05-19 Completed Universit y of Vaccine 00:00:00 [facility] Branch Influenza Virus 2020-05-19 Completed Universit y of Vaccine 00:00:00 [place] [facility] Influenza Virus 2020-05-19 Completed Universit y of Vaccine 00:00:00 [place] [facility] Influenza Virus 2020-05-19 Completed Universit y of Vaccine 00:00:00 [place] [facility] Influenza Virus 2020-05-19 Completed Universit y of Vaccine 00:00:00 [place] [facility] Influenza Virus 2020-05-19 Completed Universit y of Vaccine 00:00:00 [place] [facility] Influenza Virus 2020-05-19 Completed Universit y of Vaccine 00:00:00 [facility] Branch Influenza Virus 2020-05-19 Completed Universit y of Vaccine 00:00:00 [place] [facility] Influenza Virus 2020-05-19 Completed Universit y of Vaccine 00:00:00 [place] [facility] Influenza Virus 2020-05-19 Completed Universit y of Vaccine 00:00:00 [facility] Branch Influenza Virus 2020-05-19 Completed Universit y of Vaccine 00:00:00 [place] [facility] Influenza Virus 2020-05-19 Completed Universit y of Vaccine 00:00:00 [facility] Branch Influenza Virus 2020-05-19 Completed Universit y of Vaccine 00:00:00 [facility] Branch Influenza Virus 2020-05-19 Completed Universit y of Vaccine 00:00:00 [place] [facility] Influenza Virus 2020-05-19 Completed Universit y of Vaccine 00:00:00 [place] [facility] Influenza Virus 2020-05-19 Completed Universit y of Vaccine 00:00:00 [place] [facility] Influenza Virus 2020-05-19 Completed Universit y of Vaccine 00:00:00 [place] [facility] Influenza Virus 2020-05-19 Completed Universit y of Vaccine 00:00:00 [place] [facility] Influenza Virus 2020-05-19 Completed Universit y of Vaccine 00:00:00 [place] [facility] Influenza Virus 2020-05-19 Completed Universit y of Vaccine 00:00:00 [place] [facility] Influenza Virus 2020-05-19 Completed Universit y of Vaccine 00:00:00 [place] [facility] Influenza Virus 2020-05-19 Completed Universit y of Vaccine 00:00:00 [place] [facility] Influenza Virus 2020-05-19 Completed Universit y of Vaccine 00:00:00 [place] [facility] Influenza Virus 2020-05-19 Completed Universit y of Vaccine 00:00:00 [facility] Influenza Virus 2020-05-19 Completed Universit y of Vaccine 00:00:00 [facility] Influenza Virus 2020-05-19 Completed Universit y of Vaccine 00:00:00 [facility] Influenza Virus 2020-05-19 Completed Universit y of Vaccine 00:00:00 [facility] Influenza Virus 2020-05-19 Completed Universit y of Vaccine 00:00:00 [facility] Influenza Virus 2020-05-19 Completed Universit y of Vaccine 00:00:00 [facility] Influenza Virus 2020-05-16 Completed Universit y of [...] (ADACEL) 2019-05-21 Completed University of VACCINE 00:00:00 [facility] TDAP (ADACEL) 2019-05-21 Completed University of VACCINE 00:00:00 [facility] TDAP (ADACEL) 2019-05-21 Completed University of VACCINE 00:00:00 [facility] Branch TDAP (ADACEL) 2019-05-21 Completed University of VACCINE 00:00:00 [facility] TDAP (ADACEL) 2019-05-21 Completed University of VACCINE 00:00:00 [facility] Branch TDAP (ADACEL) 2019-05-21 Completed University of VACCINE 00:00:00 [facility] Branch TDAP (ADACEL) 2019-05-21 Completed University of VACCINE 00:00:00 [facility] Branch TDAP (ADACEL) 2019-05-21 Completed University of VACCINE 00:00:00 [facility] Branch TDAP (ADACEL) 2019-05-21 Completed University of VACCINE 00:00:00 [facility] Branch TDAP (ADACEL) 2019-05-21 Completed University of VACCINE 00:00:00 [facility] Branch TDAP (ADACEL) 2019-05-21 Completed University of VACCINE 00:00:00 [facility] Branch TDAP (ADACEL) 2019-05-21 Completed University of [...] 2019-05-21 Completed University of VACCINE 00:00:00 [facility] Branch TDAP (ADACEL) 2019-05-21 Completed University of VACCINE 00:00:00 [facility] Branch TDAP (ADACEL) 2019-05-21 Completed University of VACCINE 00:00:00 [facility] Branch TDAP (ADACEL) 2019-05-21 Completed University of VACCINE 00:00:00 [facility] Branch TDAP (ADACEL) 2019-05-21 Completed University of VACCINE 00:00:00 [facility] Branch TDAP (ADACEL) 2019-05-21 Completed University of VACCINE 00:00:00 [facility] Branch TDAP (ADACEL) 2019-05-21 Completed University of VACCINE 00:00:00 [facility] Branch TDAP (ADACEL) 2019-05-21 Completed University of VACCINE 00:00:00 [facility] Branch TDAP (ADACEL) 2019-05-21 Completed University of VACCINE 00:00:00 [facility] Branch TDAP (ADACEL) 2019-05-21 Completed University of VACCINE 00:00:00 [place] [facility] TDAP (ADACEL) 2019-05-21 Completed University of VACCINE 00:00:00 [facility] Branch TDAP (ADACEL) 2019-05-21 Completed University of [...] (ADACEL) 2019-05-21 Completed University of VACCINE 00:00:00 [facility] TDAP (ADACEL) 2019-05-21 Completed University of VACCINE 00:00:00 [facility] Branch TDAP (ADACEL) 2019-05-21 Completed University of VACCINE 00:00:00 [facility] Branch TDAP (ADACEL) 2019-05-21 Completed University of VACCINE 00:00:00 [facility] TDAP (ADACEL) 2019-05-21 Completed University of VACCINE 00:00:00 [facility] TDAP (ADACEL) 2019-05-21 Completed University of VACCINE 00:00:00 [facility] TDAP (ADACEL) 2019-05-21 Completed University of VACCINE 00:00:00 [facility] TDAP (ADACEL) 2019-05-21 Completed University of VACCINE 00:00:00 [facility] TDAP (ADACEL) 2019-05-21 Completed University of VACCINE 00:00:00 [facility] Influenza Virus 2019-02-06 Completed Universit y of [...] mL 00:00:00 [place] [facility] 6[facility] MO [facility] Vital Signs Vital Name Observation Time Observation Value Comments Source Systolic blood 2022-06-23 15:26:00 111 mm[Hg] Univer sity of pressure [facility] Diastolic blood 2022-06-23 15:26:00 75 mm[Hg] Unive rsity of pressure [facility] Heart rate 2022-06-23 15:26:00 108 /min Universi ty of [place] [facility] Body temperature 2022-06-23 15:26:00 36.83 Irene Univ ersity of [place] [facility] Respiratory rate 2022-06-23 15:26:00 18 /min Univ ersity of [place] [facility] Body height 2022-06-23 15:26:00 154.9 cm Universi ty of [place] [facility] Body weight 2022-06-23 15:26:00 71.385 kg Universi ty of [place] [facility] BMI 2022-06-23 15:26:00 29.74 kg/m2 Universi ty of [place] [facility] Oxygen saturation in 2022-06-23 15:26:00 99 /min University of Arterial blood by [facility] Pulse oximetry Branch Systolic blood 2022-05-05 22:05:00 126 mm[Hg] Univer sity of pressure [place] [facility] Diastolic blood 2022-05-05 22:05:00 75 mm[Hg] Unive rsity of pressure [place] [facility] Heart rate 2022-05-05 22:05:00 99 /min Universi ty of [place] [facility] Respiratory rate 2022-05-05 22:05:00 16 /min Univ ersity of [place] [facility] Oxygen saturation in 2022-05-05 22:05:00 99 /min University of Arterial blood by [facility] Pulse oximetry Branch Body temperature 2022-05-05 18:24:00 37.11 Irene Univ ersity of [place] [facility] Body height 2022-05-05 18:24:00 154.9 cm Universi ty of [place] [facility] Body weight 2022-05-05 18:24:00 54.432 kg Universi ty of [place] [facility] BMI 2022-05-05 18:24:00 22.67 kg/m2 [facility]i ty [facility] [place] [facility] Systolic blood 2022-04-26 14:28:00 135 mm[Hg] Univer sity of pressure [place] [facility] Diastolic blood 2022-04-26 14:28:00 95 mm[Hg] Unive rsity of pressure [place] [facility] Heart rate 2022-04-26 14:28:00 93 /min Universi ty of [place] [facility] Body temperature 2022-04-26 14:28:00 36.89 Irene Univ ersity of [place] [facility] Respiratory rate 2022-04-26 14:28:00 18 /min Univ ersity of [place] [facility] Body height 2022-04-26 14:28:00 154.9 cm Universi ty [facility] [place] [facility] Body weight 2022-04-26 14:28:00 54.432 kg Universi ty [facility] [place] [facility] BMI 2022-04-26 14:28:00 22.67 kg/m2 Universi ty of [place] [facility] Oxygen saturation in 2022-04-26 14:28:00 [...] 2022-04-26 00:21:00 154.9 cm Universi ty of [place] [facility] Body weight 2022-04-26 00:21:00 54.432 kg Universi ty of [place] [facility] BMI 2022-04-26 00:21:00 22.67 kg/m2 Universi ty [facility] [place] [facility] Oxygen saturation in 2022-04-26 00:21:00 100 /min University of Arterial blood by [place] [facility] Pulse oximetry Branch Systolic blood 2022-04-09 14:39:00 122 mm[Hg] Univer sity of pressure [place] [facility] Diastolic blood 2022-04-09 14:39:00 84 mm[Hg] Unive rsity of pressure [place] [facility] Heart rate 2022-04-09 14:39:00 96 /min Universi ty [facility] [place] [facility] Body height 2022-04-09 14:39:00 154.9 cm Universi ty [facility] [place] [facility] Body weight 2022-04-09 14:39:00 60.328 kg Universi ty of [place] [facility] BMI 2022-04-09 14:39:00 25.13 kg/m2 [...] 97 /min University of Arterial blood by [facility] Pulse oximetry Branch Body temperature [...] 97 /min University of Arterial blood by [facility] Pulse oximetry Branch Body temperature [...] 2022-03-15 19:23:00 25.13 kg/m2 [facility] [place] [facility] Oxygen saturation in 2022-03-15 19:23:00 98 /min University of Arterial blood by [place] [employer] [facility] Pulse oximetry Branch Systolic blood 2022-03-15 15:02:00 115 mm[Hg] Univer sity of pressure [place] [facility] Diastolic blood 2022-03-15 15:02:00 70 mm[Hg] Unive rsity of pressure [place] [facility] Heart rate 2022-03-15 15:02:00 85 /min Universi ty [facility] [place] [facility] Respiratory rate 2022-03-15 15:02:00 20 /min Univ ersity of [place] [facility] Oxygen saturation in 2022-03-15 15:02:00 99 /min University of Arterial blood by [place] [employer] [facility] Pulse oximetry Branch Body temperature 2022-03-15 13:38:00 36.94 Irene Univ ersity of [place] [facility] Body height 2022-03-15 13:38:00 154.9 cm Universi ty [facility] [place] [facility] Body weight 2022-03-15 13:38:00 54.432 kg [facility]i [facility] [place] [facility] BMI 2022-03-15 13:38:00 22.67 kg/m2 [facility] [place] [facility] Systolic blood 2022-03-11 16:30:00 124 [...] /min University of Arterial blood by [place] [employer] [facility] Pulse oximetry Branch Body height 2022-03-11 14:19:00 154.9 cm Universi [facility] [place] [facility] Body weight 2022-03-11 14:19:00 58.968 [...] 100 /min University of Arterial blood by [employer] yessi Pulse oximetry Branch Systolic blood 2022-02-27 13:19:00 131 mm[Hg] Univer sity of pressure [place] [facility] Diastolic blood 2022-02-27 13:19:00 86 [...] /min University of Arterial blood by [place] [employer] [facility] Pulse oximetry Branch Systolic blood 2022-02-21 08:06:00 135 mm[Hg] Univer sity of pressure [place] [facility] Diastolic blood 2022-02-21 08:06:00 97 mm[Hg] Unive rsity of pressure [place] [facility] Heart rate 2022-02-21 08:06:00 98 /min Universi ty [facility] [place] [facility] Respiratory rate 2022-02-21 08:06:00 16 /min Univ ersity of [place] [facility] Oxygen saturation in 2022-02-21 08:06:00 97 /min University of Arterial blood by [place] Medi yessi Pulse oxim[facility] Branch Body temperature 2022-02-21 [...] 98 /min University of Arterial blood by [facility] Pulse oximetry Branch Body temperature 2022 16:56:00 37.06 Irene Univ ersity of [place] [facility] Body weight 2022 16:56:00 54.432 kg Universi ty [facility] [place] [facility] BMI 2022 16:56:00 22.67 kg/m2 [facility] [place] [facility] Systolic blood 2022-02-05 14:31:00 128 mm[Hg] Univer sity of pressure [place] [facility] Diastolic blood 2022-02-05 14:31:00 84 mm[Hg] Unive rsity of pressure [place] [facility] Heart rate 2022-02-05 14:31:00 86 /min [facility]i ty [facility] [place] [facility] Body temperature 2022-02-05 14:31:00 37.89 Irene Univ ersity [facility] [place] [facility] Respiratory rate 2022-02-05 14:31:00 18 /min Univ ersity of [place] [facility] Body height 2022-02-05 14:31:00 154.9 cm [facility]i ty [facility] [place] [facility] Body weight 2022-02-05 14:31:00 54.432 kg [facility]i ty [facility] [place] [facility] BMI 2022-02-05 14:31:00 22.67 kg/m2 Universi ty [facility] [place] [facility] Oxygen saturation in 2022-02-05 14:31:00 98 /min University of Arterial blood by [facility] yessi Pulse oximetry Branch Systolic blood 2022-01-18 14:50:00 144 mm[Hg] Univer sity of pressure [place] [facility] Diastolic blood 2022-01-18 14:50:00 92 mm[Hg] Unive rsity of pressure [place] [facility] Heart rate 2022-01-18 14:50:00 94 /min Universi ty [facility] [place] [facility] Respiratory rate 2022-01-18 14:50:00 20 /min Univ ersity of [place] [facility] Oxygen saturation in 2022-01-18 14:50:00 99 /min University of Arterial blood by [facility] Pulse oximetry Branch Body weight [...] 98 /min University of Arterial blood by [facility] Pulse oximetry Branch Body temperature [...] Diastolic blood 2022-01-09 00:37:11 90 [facility]Hg[facility]22-01-09 00:37:11 94 /min Universi ty [facility] Body temperature 2022-01-09 00:37:11 37.11 Irene [facility] Respiratory rate 2022-01-09 00:37:11 16 /min [facility] Oxygen saturation in 2022-01-09 00:37:11 97 /min [facility] blood by [facility] Pulse oximetry Branch Body height 2022-01-08 23:03:00 154.9 cm Universi ty [facility] Body weight 2022-01-08 23:03:00 58.06 kg Universi [facility] BMI 2022-01-08 23:03:00 24.19 kg/m2 [facility] Systolic blood 2021-12-12 18:00:00 126 mm[Hg] Univer sit of [facility] Diastolic blood 2021-12-12 18:00:00 87 mm[Hg] [facility] Heart rate 2021-12-12 18:00:00 86 /min Universi ty [facility] Body temperature 2021-12-12 18:00:00 36.89 Irene [facility] Respiratory rate 2021-12-12 18:00:00 18 /min [facility] Body height 2021-12-12 18:00:00 154.9 cm Universi [facility] Body weight 2021-12-12 18:00:00 [facility] BMI 2021-12-12 18:00:00 23.81 kg/m2 [facility] Procedures Procedure Date / Time Performing Clinician Source Performed POCT MOLECULAR STREP 2022-06-23 16:06:00 Unknown, Attending [facility] ASSIGNMENT OF BENEFITS 2022-06-23 15:18:28 Doctor Unassigned, No [facility] COMP. METABOLIC PANEL 2022-05-05 19:14:00 Karon Norton [facility] ([id number]) [facility] CBC WITH DIFF 2022-05-05 19:14:00 Karon Norton [facility] POCT TEST 2022-05-05 19:00:00 Karon Norton [facility] URINALYSIS 2022-05-05 18:58:00 Karon Norton [facility] CT ABDOMEN PELVIS WO 2022-04-26 15:11:00 Zion Bridges [facility] CONTRAST [facility] COMP. METABOLIC PANEL 2022-04-26 14:49:00 Zion Bridges [facility] ([id number]) [facility] CBC WITH DIFF 2022-04-26 14:49:00 Singer [facility] URINALYSIS 2022-04-26 14:49:00 Singer [facility] POCT TEST 2022-04-26 14:45:00 Singer Zion [facility] CONSENT/REFUSAL FOR 2022-04-26 14:22:29 Doctor Unassigned, No [facility] [place] DI[facility]NOS[facility] AND TREATMENT Name [facility] POCT TEST 2022-04-26 01:22:00 Zion Bridges [facility] ASSIGNMENT OF BENEFITS 2022-04-26 00:54:02 Doctor Unassigned, No [facility] URINALYSIS 2022-04-26 00:45:00 [facility] [facility] CONSENT/REFUSAL FOR 2022-04-26 00:16:47 Doctor Unassigned, No [facility] [place] [facility] Name [facility] BASIC METABOLIC PANEL 2022-04-07 22:35:00 Olamide Garvin [facility] (NA, K, CL, CO2, Medical Branch GLUCOSE, BUN, CREATININE, CA) CBC WITH DIFF 2022-04-07 22:35:00 Olamide Garvin [facility] URINALYSIS 2022-04-07 21:36:00 Olamide Garvin [facility] URINE DRUG (IMMUNOASSAY) 2022-04-07 21:36:00 Olamide Garvin [facility] [place] - COMPREHENSIVE DRUG Medical Bra nch SCREEN W/O REFLEX CONSENT/REFUSAL FOR 2022-04-07 19:29:15 Doctor Unassigned, No [facility] [place] [facility] Name Medical Branch POCT TEST 2022-03-24 14:07:00 Kellie Duncan [facility] CONSENT/REFUSAL FOR 2022-03-24 13:27:20 Doctor Unassigned, No [facility] [place] [facility]RE[facility] Name [facility] CT ABDOMEN PELVIS WO 2022-03-15 14:09:04 Anna Gould [facility] URINALYSIS 2022-03-15 13:53:00 Anna Gould [facility] POCT TEST 2022-03-15 13:52:00 Anna Gould [facility] CONSENT/REFUSAL FOR 2022-03-15 13:37:02 Doctor Unassigned, No [facility] [place] [facility]REAT[facility] Name [facility] POCT TEST 2022-03-11 14:59:00 Angelica Viveros [facility] FLU VACC ([id number]), 6 2022-02-27 13:34:55 Vijay Martinez [facility] MO-64 YRS, .5ML, IM, Medical Bra [facility] QUAD (FLUCELVAX) NOTICE OF PRIVACY 2022-02-21 06:06:30 Doctor Unassigned, No [facility] PRACTICES [facility] CONSENT/REFUSAL FOR 2022-02-21 06:03:41 Doctor Unassigned, No [facility] [place] [facility] Name [facility] XR ANKLE <3 VW RIGHT 2022 17:56:42 Maggie Hamilton [facility] CT ABDOMEN PELVIS W 2022 17:44:17 Maggie Hamilton [facility] CT TRAUMA CERVICAL SPINE 2022 17:43:49 Maggie Hamilton [facility] WO CONTRAST [facility] POCT TEST 2022 17:27:00 Maggie Hamilton [facility] COMP. METABOLIC PANEL 2022 17:17:00 Maggie Hamilton [facility] ([id number]) [facility] CBC WITH DIFF 2022 17:17:00 Maggie Hamilton [facility] CONSENT/REFUSAL FOR 2022 16:53:13 Doctor Unassigned, No Un [facility] DIAGNOSIS AND TREATMENT Name Medical Branch US GALL BLADDER 2022-01-18 12:31:09 Bernardo Levy [facility] US PELVIS COMPLETE WITH 2022-01-18 12:21:13 Melvin Zhao [facility] TRANSVAGINAL [facility] CT ABDOMEN PELVIS W 2022-01-18 11:20:50 Melvin Zhao [facility] CONTRAST [facility] POCT TEST 2022-01-18 10:57:00 Jayy Kennedy [facility] COVID-19 (ID NOW RAPID 2022-01-18 10:57:00 Jayy Kennedy [facility] TESTING) [facility] URINALYSIS 2022-01-18 10:47:00 Jayy Kennedy [facility] LIPASE 2022-01-18 10:29:00 Jayy Kennedy [facility] TEST, SERUM 2022-01-18 10:29:00 Jayy Kennedy [facility] HEPATIC FUNCTION PANEL 2022-01-18 10:29:00 Jayy Kennedy [facility] ([id number]) (ALB,T.PRO,BILI [facility] T,BU/BC,ALT,AST,ALK PHOS) BASIC METABOLIC PANEL 2022-01-18 10:29:00 Jayy Kennedy [facility] (NA, K, CL, CO2, Medical Branch GLUCOSE, BUN, CREATININE, CA) CBC WITH DIFF 2022-01-18 10:29:00 Jayy Kennedy [facility] CONSENT/REFUSAL FOR 2022-01-18 10:13:31 Doctor Unassigned, No Un [facility] DIAGNOSIS AND TREATMENT Name Medical Branch CT HEAD WO CONTRAST 2022-01-15 15:22:29 Danita [facility] TEST, SERUM 2022-01-15 14:36:00 Danita [facility] BASIC METABOLIC PANEL 2022-01-15 14:36:00 Danita [facility] (NA, K, CL, CO2, [facility] GLUCOSE, BUN, CREATININE, CA) CBC WITH DIFF 2022-01-15 14:36:00 Maura Samayoa [facility] CONSENT/REFUSAL FOR 2022-01-15 13:28:12 Doctor Unassigned, No [facility] Name Medical Branch XR CERVICAL SPINE 4 VW 2022-01-09 00:29:16 Gabriela [facility] XR LUMBAR SPINE 4 VW 2022-01-09 00:29:16 Gabriela [facility] XR SPINE THORACIC 3 VW 2022-01-09 00:29:16 Gabriela [facility] URINALYSIS 2022-01-08 23:50:00 Gabriela [facility] CONSENT/REFUSAL FOR 2022-01-08 22:51:08 Doctor Unassigned, No [facility] Name [facility] GALV ONLY - VAGINAL 2021-12-12 18:37:00 Khang [facility] PATHOGENS BY NUCLEIC Medical [facility] ACID TESTING URINE CULTURE 2021-12-12 18:32:00 [facility] POCT TEST 2021-12-12 18:31:00 [facility] POCT URINALYSIS W/O 2021-12-12 18:31:00 [facility] SPECIFIC GRAVITY [facility] Plan of Care Planned Activity Planned Date Details Comments Source Future Scheduled 2029-05-21 DTaP,Tdap,and Td [facility] Test 00:00:00 Vaccines (2 - Td) Medical Br anch [code = DTaP,Tdap,and Td Vaccines (2 - Td)] Future Scheduled 2021-09-06 Depression screening [facility] Test 00:00:00 (procedure) [code = Medical Branch 506960921] Future Scheduled 2016-02-19 Screening for [facility] Test 00:00:00 malignant neoplasm Medical B ranch of cervix (procedure) [code = 097872255] Future Scheduled 2013 Hepatitis C [facility] Test 00:00:00 screening Medical Branch (procedure) [code = 292511967] Future Scheduled 2011 SARS-CoV-2 [facility] Test 00:00:00 (COVID-19) Vaccine Medical B patricia (1) [code = SARS-CoV-2 (COVID-19) Vaccine (1)] Future Scheduled 2006 HPV VACCINES (1 - Univer [facility] Test 00:00:00 2-dose series) [code Medical Branch = HPV VACCINES (1 - 2-dose series)] Encounters Start End Encounter Admission Attending Care Care Encounter Source Date/Time Date/Time Type Type Clinicians Facility Department ID 2021-03-14 Emergency [facility] [id number] Univers 03:14:31 ity of [facility] 2021-03-13 Emergency [facility] [id number] Univers 20:05:20 ity of [facility] 2021-03-13 Emergency [facility] [id number] Univers 12:48:28 ity of [facility] 2021-03-13 Emergency [facility] [id number] Univers 02:43:51 ity of [facility] 2021-03-13 Emergency [facility] [id number] Univers 00:27:09 ity of [facility] 2021-03-12 Emergency [facility] [id number] Univers 22:10:36 ity of [facility] 2021-03-12 Emergency [facility] [id number] Univers 20:04:05 ity of [facility] 2021-03-12 Emergency [facility] [id number] Univers 15:25:05 ity of [facility] 2021-03-12 Emergency [facility] [id number] Univers 11:43:36 ity of [facility] 2021-03-12 Emergency [facility] [id number] Univers 07:41:37 ity of [facility] 2021-03-12 Emergency [facility] [id number] Univers 05:43:47 ity of [facility] 2021-03-12 Emergency [facility] [id number] Univers 03:43:41 ity of [facility] 2021-03-12 Emergency [facility] [id number] Univers 01:31:27 ity of [facility] 2021-03-12 Emergency X [facility] ERT [id number] Univers 00:56:44 ity of [facility] 2021-03-12 Emergency [facility] [id number] Univers 00:56:31 ity of [facility] 2021-03-11 Emergency [facility] [id number] Univers 17:47:02 ity of [facility] 2021-03-11 Emergency [facility] [id number] Univers 16:27:15 ity of [facility] 2021-03-11 Emergency [facility] [id number] Univers 12:00:58 ity of [facility] 2021-03-11 Emergency [facility] [id number] Univers 10:33:59 ity of [facility] 2021-03-11 Emergency [facility] [id number] Univers 01:36:52 ity of [facility] 2021-03-10 Emergency [facility] [id number] Univers 23:35:34 ity of [facility] 2021-03-10 Emergency [facility] [id number] Univers 19:06:16 ity of [facility] 2021-03-10 Emergency [facility] [id number] Univers 12:39:47 ity of [facility] 2021-03-10 Emergency [facility] [id number] Univers 06:54:04 ity of [facility] 2021-03-09 Outpatient P [facility] CHRIS [id number] Univers 13:25:44 ity of [facility] 2021-03-09 Outpatient P [facility] [id number] Univers 13:08:01 ity of [facility] 2021-03-09 Outpatient P [facility] [id number] Univers 12:37:25 ity of [facility] 2021-03-09 Outpatient P [facility] [id number] Univers 11:51:20 ity of [facility] 2022-06-23 2022-06-23 Outpatient R DANITA [facility] [id number] Univers 09:20:00 10:27:39 OMAYEMI ity of [facility] 2022-06-23 2022-06-23 Urgent Paul Samayoa [facility] 1.2.840. [id number] Univers 09:20:00 10:27:39 Care Unknown, Attending HEALTH 350.1.13.10 ity of [place] 4.2.7.2.686 Martin as TOÑO?BLEA [id number] [place] whit [address] MEDICAL OFFICE BUILDING 2022-06-23 2022-06-23 Orders Doctor JORDAN 1.2.840.114 [id number] Univers 00:00:00 00:00:00 Only Unassigned, YAZMIN 350.1.13.10 ity of [place] [facility] 4.2.7.2.686 [place] as [id number] [facility] [address] 2022-06-15 2022-06-15 Outpatient Farzana GREENE [facility] [id number] Univers 09:40:00 09:40:00 JEREMY [facility] 2022-05-29 2022-05-29 Outpatient [facility] [id number] Univers 08:00:00 08:00:00 KASSANDRA [facility] 2022-05-15 2022-05-15 Outpatient Farzana MILLER [facility] [id number] Univers 09:20:00 09:20:00 BENNETT [facility] 2022-05-11 2022-05-11 Outpatient [facility] [id number] Univers 09:30:00 09:30:00 KASSANDRA [facility] 2022-05-05 2022-05-05 Emergency X ERROL, [facility] ERT [id number] Univers 12:26:00 16:11:00 KARON [facility] 2022-05-05 2022-05-05 Emergency [facility] 1.2.840.114 [id number] Univers 12:26:00 16:11:00 Karon LULU 350.1.13.10 i ty [facility] 4.2.7.2.686 [place] [id number] [facility] [address] 2022-05-01 2022-05-01 Outpatient PRASANNA LOOMIS [facility] [id number] Univers 00:00:00 00:00:00 [facility] 2022-04-26 2022-04-26 Emergency X SINGER [facility] ERT [id number] Univers 08:30:00 09:59:00 ZION [facility] 2022-04-26 2022-04-26 Emergency [facility] 1.2.132.037 [id number] Univers 08:30:00 09:59:00 Zion LAWSON 350.1.13.10 i ty of [place] 4.2.7.2.686 [facility] [id number] [address] 2022-04-25 2022-04-25 Emergency X [facility] [id number] Univers 18:23:00 21:55:00 CYNVANESA lechuga [facility] 2022-04-25 2022-04-25 Emergency [facility] [id number] [id number] Univers 18:23:00 21:55:00 Kennedy LAWSON 350.1.13.10 i ty of [place] 4.2.7.2.686 [facility] [id number] [address] 2022-04-19 2022-04-19 Outpatient [facility] [id number] Univers 10:00:00 10:00:00 JEREMY ankush [facility] 2022-04-12 2022-04-12 Telephone [facility] 1.2.177.351 [id number] Univers 00:00:00 00:00:00 GetNinjas 350.1.13.10 it y of [facility] 4.2.7.2.686 [place] as TOÑO?BLEA [id number] [address] 2022-04-11 2022-04-11 Telephone [facility] 1.2.840.114 [id number] Univers 00:00:00 00:00:00 Darrion Symbiotec Pharmalab [facility] 350.1.13.10 ity of [place] 4.2.7.2.686 Martin as TOÑO?BLEA [id number] [address] 2022-04-10 2022-04-10 Telephone [facility] 1.2.778.576 [id number] Univers 00:00:00 00:00:00 GetNinjas 350.1.13.10 it y of [facility] 4.2.7.2.686 [place] as TOÑO?BLEA [id number] [facility] MEDICAL OFFICE [facility] 2022-04-09 2022-04-09 Office [facility]RE[facility] 1.2.840.114 [id number] Univers 09:30:00 09:30:00 Visit GetNinjas 350.1.13.10 it y of [facility] 4.2.7.2.686 [place] as TOÑO?BLEA [id number] N[place] whit [address] OFFICE [facility] 2022-04-09 2022-04-09 Outpatient R LEXY [facility] [id number] Univers 09:30:00 09:21:44 [facility] 2022-04-07 2022-04-07 Emergency X [facility] ERT [id number] Univers 13:41:00 17:49:00 OLAMIDE hiren[facility] 2022-04-07 2022-04-07 Emergency [facility] 1.2.520.358 [id number] Univers 13:41:00 17:49:00 Olamide Mosqueda [place] 350.1.13.10 ity of [place] 4.2.7.2.686 [place] [id number] [address] 2022-04-04 2022-04-04 Telephone [facility] 1.2.439.254 [id number] Univers 00:00:00 00:00:00 GetNinjas 350.1.13.10 it y of [place] 4.2.7.2.686 Martin as TOÑO?BLEA [id number] Nc whit [address] OFFICE [facility] 2022-04-02 2022-04-02 Outpatient R LEXY [facility] [id number] Univers 10:30:00 10:30:00 [facility] 2022-03-28 2022-03-28 Patient Doctor [facility] 1.2.840.114 [id number] Univers 00:00:00 00:00:00 Secure M[facility] HEALTH 350.1.13.10 ity of [place] [facility] 4.2.7.2.686 [place] as TOÑO?BLEA [id number] [place] whit [address] MEDICAL OFFICE [facility] 2022-03-24 2022-03-24 Emergency X PERLA, [facility] ERT [id number] Univers 07:35:00 13:11:00 KELLIE hirenchino [facility] 2022-03-24 2022-03-24 Emergency [facility] [id number] [id number] Univers 07:35:00 13:11:00 Kellie E LULU 350.1.13.10 ity of [place] 4.2.7.2.686 [place] [facility] [id number] [address] 2022-03-23 2022-03-23 Outpatient [facility] [id number] [facility] 10:30:00 10:30:00 KASSANDRA lechuga [facility] 2022-03-23 2022-03-23 Telephone [facility] 1.2.840.114 [id number] Univers 00:00:00 00:00:00 [facility] 350.1.13.10 ity of [place] 4.2.7.2.686 Martin as TOÑO?BLEA [id number] [address] OFFICE [facility] 2022-03-22 2022-03-22 Telephone [facility] 1.2.840.114 [id number] Univers 00:00:00 00:00:00 [facility] 350.1.13.10 ity of [place] 4.2.7.2.686 Martin as TOÑO?BLEA [id number] [address] 2022-03-22 2022-03-22 Refill [facility] 1.2.840.114 [id number] Univers 00:00:00 00:00:00 [facility] 350.1.13.10 ity of [place] 4.2.7.2.686 Martin as TOÑO?BLEA [id number] [address] 2022-03-21 2022-03-21 Telephone [facility] 1.2.840.114 [id number] Univers 00:00:00 00:00:00 [facility] 350.1.13.10 ity of [place] 4.2.7.2.686 [place] as TOÑO?BLEA [id number] Nc dical KNEY [address] MEDICAL OFFICE [facility] 2022-03-15 2022-03-15 Outpatient R ARJUN [facility] [id number] Univers 14:00:00 14:36:19 BINPEARL lechuga o f [facility] 2022-03-15 2022-03-15 Office [facility]RE[facility] 1.2.840.114 [id number] Univers 14:00:00 14:36:19 Visit Reji LAWSON 350.1.13.10 ity of [place] 4.2.7.2.686 [place] [id number] Nc dicaliyah NAL 059 [facility] 2022-03-15 2022-03-15 Emergency X BRYANNA [facility] ERT [id number] Univers 08:40:00 10:47:00 ANNA [facility] 2022-03-15 2022-03-15 Emergency Bry[facility]RE[facility] 1.2.840.114 [id number] Univers 08:40:00 10:47:00 Anna LAWSON 350.1.13.10 i ty of [place] 4.2.7.2.686 [place] [id number] [address] 2022-03-14 2022-03-14 Outpatient R PRASANNA VARGAS [facility] [id number] Univers 10:30:00 10:30:00 [facility] 2022-03-11 2022-03-11 Emergency X FELICE [facility] ERT [id number] Univers 09:22:00 12:15:00 ANGELICA [facility] 2022-03-11 2022-03-11 Emergency [facility] 1.2.840.114 [id number] Univers 09:22:00 12:15:00 Angelica LAWSON 350.1.13.10 i ty of [place] 4.2.7.2.686 [place] [id number] [address] 2022-03-06 2022-03-06 Outpatient R LEXY [facility] [id number] Univers 08:30:00 08:30:00 KASSANDRA [facility] 2022-03-02 2022-03-02 Telephone Yoselin [facility] 1.2.840.114 [id number] Univers 00:00:00 00:00:00 [facility] 350.1.13.10 ity of [place] 4.2.7.2.686 Martin as TOÑO?BLEA [id number] [place] whit [address] OFFICE [facility] 2022-02-27 2022-02-27 Outpatient R LEXY [facility] [id number] Univers 09:30:00 09:49:42 KASSANDRA itchino [facility] 2022-02-27 2022-02-27 Office [facility] 1.2.840.114 [id number] Univers 09:30:00 09:49:[address] [facility] 350.1.13.10 it y of [place] 4.2.7.2.686 Martin as TOÑO?BLEA [id number] [address] OFFICE [facility] 2022-02-27 2022-02-27 Office Juan [facility] 1.2.840.114 [id number] Univers 08:00:00 09:12:17 Visit [facility] 350.1.13.10 it y of [place] 4.2.7.2.686 [place] as TOÑO?BLEA [id number] Nc whit [facility] 044 [facility] OFFICE [facility] 2022-02-26 2022-02-26 Outpatient R LEXY [facility] [id number] Univers 11:30:00 11:30:00 KASSANDRA lechuga [facility] 2022-02-21 2022-02-21 Emergency X ALFONSO [facility] ERT [id number] Univers 01:20:00 03:44:00 MAGGIE lechuga [facility] 2022-02-21 2022-02-21 Emergency [facility] 1.2.840.114 [id number] Univers 01:20:00 03:44:00 Maggie LAWSON 350.1.13.10 ity [facility] 4.2.7.2.686 [place] [facility] [id number] [address] 2022-02-19 2022-02-19 Patient Robb [facility] 1.2.840.114 [id number] Univers 00:00:00 00:00:00 Secure Msg Kendal Chavez [facility] 350.1.13.10 ity of [place] 4.2.7.2.686 Martin as TOÑO?BLEA [id number] [address] OFFICE [facility] 2022-02-19 2022-02-19 Patient Robb [facility] 1.2.840.114 [id number] Univers 00:00:00 00:00:00 Secure Msg Kendal Chavez [facility] 350.1.13.10 ity of [place] 4.2.7.2.686 Martin as TOÑO?BLEA [id number] [address] OFFICE [facility] 2022-02-19 2022-02-19 Patient Suzette [facility] 1.2.274.976 [id number] Univers 00:00:00 00:00:00 Secure Msg Ade SAM 350.1.13.10 ity of [facility] 4.2.7.2.[place] [id number] [facility] [address] 2022 2022 Emergency X [facility]FONSOREHAB[facility] ERT [id number] Univers 11:58:00 15:13:00 MAGGIE [facility] 2022 2022 Emergency [facility]RE[facility] 1.2.840.114 [id number] Univers 11:58:00 15:13:00 Maggie [facility] 350.1.13.10 ity of [place] 4.2.7.2.686 [place] [facility] [id number] [facility] [address] 2022-02-09 2022-02-09 Outpatient R BRANDON [facility] [id number] Univers 09:00:00 09:00:00 CIRCKET davis [facility] 2022-02-06 2022-02-06 Outpatient R JUAN [facility] [id number] Univers 10:00:00 10:00:00 VIJAY lechuga [facility] 2022-02-05 2022-02-05 Nurse Nurse, F[facility] 1.2.840.114 [id number] Univers 09:45:00 10:05:00 Visit Song, [facility] 350.1.13.10 ity of [facility] 4.2.7.2.686 [place] as TOÑO?BLEA [id number] [place] dicaliyah KNEY [address] MEDICAL OFFICE BUILDING 2022-02-05 2022-02-05 Outpatient R OLIVER, [facility] [id number] Univers 09:20:00 09:20:00 FLACO lechuga o f [facility] 2022-01-26 2022-01-26 Case Prasanna Vargas [facility] 1.2.284.304 [id number] Univers 00:00:00 00:00:00 Management Cam [facility] 350.1.13.10 ity [facility] 4.2.7.2.686 [place] [id number] [place] whit TORRES [address] BUILDING 2022-01-22 2022-01-22 Outpatient R JUAN [facility] [id number] Univers 11:00:00 11:00:00 VIJAY lechuga [facility] 2022-01-18 2022-01-18 Emergency X GARDENIA [facility] ERT [id number] Univers 05:17:00 10:25:00 BERNARDO lechuga [facility] 2022-01-18 2022-01-18 Emergency KennedyJayy W TRAUMA 1.2.840.11 [id number] Univers 05:17:00 10:25:00 Bernardo Levy [facility] 350.1.13.10 ity [place].2.686 [place] [id number] [facility] [address] 2022-01-15 2022-01-15 Emergency X DANITA [facility] ERT [id number] Univers 08:34:00 10:49:00 MAURA lechuga [facility] 2022-01-15 2022-01-15 Emergency Larry Perez R [facility] 1.2.840.1 [id number] Univers 08:34:00 10:49:00 Maura Samayoa 350.1.13.10 ity of [facility] 4.2.7.2.686 [place] [id number] [facility] [address] 2022-01-08 2022-01-08 Emergency X GABRIELA [facility] ERT [id number] Univers 18:04:00 20:09:00 HUMBERTO [facility] 2022-01-08 2022-01-08 Emergency [facility] ..[id number] Univers 18:04:00 20:09:00 Humberto LAWSON [id number] i ty [facility] [id number] [id number] [place] [id number] [place] 2021-12-12 2021-12-12 Outpatient R DEYVI, [facility] [id number] Univers 13:30:00 [facility]:40:[facility] 2021-12-12 2021-12-12 Office Prasanna Vargas [facility] 1..[id number] Univers 13:30:00 13:40:21 Visit T[facility] Carnes [id number] [id number] [id number] [place] [address] 2021-12-12 2021-12-12 Outpatient R DEYVI [facility] [id number] Univers 13:30:00 13:40:21 [facility] 2021-12-12 2021-12-12 Outpatient R DEYVI, [facility] [id number] Univers 13:30:00 13:40:21 [facility] 2021-12-11 2021-12-11 Outpatient R SUZETTE, [facility] [id number] Univers 16:15:00 16:15:00 ADE [facility] 2021-12-05 2021-12-05 Outpatient R LYSSA, [facility] [id number] Univers 14:15:00 14:15:00 ROMULO [facility] 2021-11-28 2021-11-28 Emergency X ERROL, [facility] ERT [id number] Univers 08:49:00 11:02:00 KARON [facility] 2021-11-28 2021-11-28 Emergency [facility] ..840.114 [id number] Univers 08:49:00 11:02:00 Karon LAWSON 350.1.13.10 i ty of [place] 4.2.7.2.686 [facility] [id number] [address] 2021-11-24 2021-11-24 Emergency X Kaycee MÉNDEZ [facility] ERT [id number] Univers 18:14:00 21:04:00 ity of [facility] 2021-11-24 2021-11-24 Emergency Dev [facility] 1.2.840.114 [id number] Univers 18:14:00 21:04:00 Sharlene [facility] 350.1.13.10 i ty of [place] 4.2.7.2.686 [facility] [id number] [address] 2021-11-24 2021-11-24 Telephone [facility] 1.2.840.114 [id number] Univers 00:00:00 00:00:00 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 350.1.13.10 ity [facility] 4.2.7.2.686 [place] as MATERNAL [id number] [facility] ical & CHILD [address] [place] [address] 2021-11-20 2021-11-20 Patient Robb [facility] 1.2.840.114 [id number] Univers 00:00:00 00:00:00 Secure [facility] 350.1.13.10 ity [facility] 4.2.7.2.686 Martin as TOÑO?BLEA [phone] Nc whit [address] MEDICAL OFFICE BUILDING 2021-11-19 2021-11-19 Letter JORDAN Santacruz 1.2.840.114 [id number] Univers 00:00:00 00:00:00 (Out) Leslie ARCE 350.1.13.10 it y of [facility] 4.2.7.2.686 Martin as [phone] [address] 2021-11-18 2021-11-18 Outpatient R OLIVER [facility] [id number] Univers 10:41:40 23:59:00 FLACO lechuga o f [facility] 2021-11-18 2021-11-18 [facility] 1.2.683.573 [id number] Univers 10:41:40 23:59:00 Encounter [facility] 350.1.13.10 ity of [place] 4.2.7.2.686 Martin as TOÑO?BLEA [id number] Nc whit [place] [address] MEDICAL OFFICE [facility] 2021-11-18 2021-11-18 Urgent [facility] 1.2.840.114 [id number] Univers 10:20:00 10:53:20 Care [facility] 350.1.13.10 i ty of [place] 4.2.7.2.686 Martin as TOÑO?BLEA [phone] Nc whit [facility] [address] [facility] OFFICE [facility] 2021-11-09 2021-11-09 Outpatient R APURVA [facility] [id number] Univers 10:30:00 10:30:00 CELINA lechuga [facility] 2021-10-25 2021-10-25 Urgent Ileana Medrano [facility] 1..840.114 [id number] Univers 13:20:00 13:20:00 Care [facility] 350.1.13.10 ity of [facility] 4.2.7.2.686 Martin as TOÑO?BLEA [id number] [facility] [address] [facility] 2021-10-25 2021-10-25 Outpatient Farzana MEDRANO [facility] [id number] Univers 13:20:00 12:47:59 ILEANA lechuga [facility] 2021-10-25 2021-10-25 [facility] 1.2.840.114 [id number] Univers 00:00:00 00:00:00 Secure Msg Vijay HEALTH 350.1.13.10 ity of [place] 4.2.7.2.686 Martin as TOÑO?BLEA [id number] Nc whit [place] [address] [facility] 2021-10-25 2021-10-25 Telephone Juan [facility] 1.2.911.310 [id number] Univers 00:00:00 00:00:00 Vijay HEALTH 350.1.13.10 it y of [place] 4.2.7.2.686 Martin as TOÑO?BLEA [id number] Nc whit [place] [address] [facility] OFFICE [facility] 2021-10-25 2021-10-25 Telephone Provider, [facility] 1.2.840.114 [id number] Univers 00:00:00 00:00:00 Ang Db HEALTH 350.1.13.10 it y of [facility]gent [facility] 4.2.7.2.686 [place] TOÑO?BLEA [phone] Nc whit [place] [address] [facility] OFFICE [facility] 2021-10-25 2021-10-25 Telephone Nurse, [facility] 1.2.840.114 [id number] Univers 00:00:00 00:00:00 Db Urgent HEALTH 350.1.13.10 ity of Care [place] 4.2.7.2.686 Martin as TOÑO?BLEA [id number] Nc whit [facility] [address] [facility] 2021-10-24 2021-10-24 Outpatient Farzana OMALLEY [facility] [id number] Univers 10:15:00 10:15:00 [facility] 2021-10-24 2021-10-24 Outpatient Farzana OMALLEY [facility] [id number] Univers 10:15:00 10:15:00 [facility] 2021-10-11 2021-10-11 Outpatient Farzana OMALLEY [facility] [id number] Univers 09:30:00 09:30:00 [facility] 2021-10-10 2021-10-10 Outpatient PRASANNA LOOMIS [facility] [id number] Univers 13:30:00 13:30:[facility] 2021-10-10 2021-10-10 Outpatient Farzana VARGAS PRASANNA [facility] [id number] Univers 13:30:00 13:30:00 [facility] 2021-10-10 2021-10-10 Out[facility] [id number] Univers 13:30:00 13:30:00 [facility] 2021-10-10 2021-10-10 Outpatient PRASANNA LOOMIS [facility] [id number] Univers 13:30:00 13:30:00 ity of [facility] 2021-10-10 2021-10-10 Outpatient R PRASANNA VARGAS [facility] [id number] Univers 13:30:00 13:30:00 ity of [facility] 2021-10-10 2021-10-10 Outpatient [facility] [id number] Univers 13:30:00 13:30:00 ity of [facility] 2021-10-10 2021-10-10 Outpatient R PRASANNA VARGAS [facility] [id number] Univers 13:30:00 13:30:00 ity of [facility] 2021-10-05 2021-10-05 Patient Zamudio [facility] 1.2.840.114 [id number] Univers 00:00:00 00:00:00 Secure g Kendal Chavez HEALTH 350.1.13.10 ity of [place] 4.2.7.2.686 Martin as TOÑO?BLEA [phone] [address] MEDICAL OFFICE [facility] 2021-10-05 2021-10-05 Patient Robb [facility] 1.2.840.114 [id number] Univers 00:00:00 00:00:00 Secure Msg Kendal Chavez HEALTH 350.1.13.10 ity of [place] 4.2.7.2.686 [place] as TOÑO?BLEA [id number] [address] OFFICE [facility] 2021-10-04 2021-10-04 Pre Visit HILARIO Rodriguez 1.2.925.970 [id number] Univers 00:00:00 00:00:00 Outreach Melia TELLO 350.1.13.10 it[place] of [place]2.[place].2.[place] [id number] [facility] [address] 2021-09-28 2021-09-28 Office Apurva [facility] 1.2.840.114 [id number] Univers 13:30:00 13:45:00 Visit Celina SAM 350.1.13.10 it[place] of [place].2.[place] [id number] [facility] [address] 2021-09-28 2021-09-28 Outpatient R APURVA [facility] [id number] Univers 13:30:00 13:30:00 CELINA [facility] 2021-09-28 2021-09-28 Outpatient R APURVA [facility] [id number] Univers 13:30:00 13:30:00 CELINA [facility] 2021-09-28 2021-09-28 Patient Apurva [facility] 1.2.840.114 [id number] Univers 00:00:00 00:00:00 Secure Msg Celina A FLACO 350.1.13.10 ity of [facility] 4.2.7.2.686 [place] [phone] [address] 2021-09-27 2021-09-27 Outpatient R DEYVI [facility] [id number] Univers 14:00:00 14:00:00 TETO [facility] 2021-09-27 2021-09-27 [facility] [id number] Univers 09:30:00 09:30:00 [facility] 2021-09-27 2021-09-27 Outpatient R ADITI [facility] [id number] Univers 09:30:00 09:30:00 [facility] 2021-09-27 2021-09-27 [facility] [id number] Univers 09:30:00 09:30:00 [facility] 2021-09-26 2021-09-26 Outpatient R BRANDON, [facility] [id number] Univers 10:45:00 10:45:00 CRICKET ity o [facility] 2021-09-26 2021-09-26 Outpatient R AKINLYNSEY, [facility] [id number] Univers 10:45:00 10:45:00 CRICKET ity o [facility] 2021-09-26 2021-09-26 Patient Víctorkassandra [facility] 1.2.840.114 [id number] Univers 00:00:00 00:00:00 Secure Msg Vijay HEALTH 350.1.13.10 ity of [place] 4.2.7.2.686 Martin as TOÑO?BLEA [id number] [facility] [address] MEDICAL OFFICE [facility] 2021-09-26 2021-09-26 Patient Juan [facility] 1.2.840.114 [id number] Univers 00:00:00 00:00:00 Secure Msg Vijay HEALTH 350.1.13.10 ity of [facility] 4.2.7.2.686 [place] as TOÑO?BLEA [id number] [facility] 0[address] [facility] OFFICE [facility] 2021-09-25 2021-09-25 Urgent Noelle Boydtany [facility] 1.2.840. 114 [id number] Univers 10:20:00 11:10:42 Care [facility] 350.1.13.10 ity of [place] 4.2.7.2.686 [place] as TOÑO?BLEA [id number] [facility] [address] [facility] 2021-09-25 2021-09-25 Outpatient R [facility] [id number] Univers 10:20:00 11:10:42 FLACO ankush o f [facility] 2021-09-25 2021-09-25 Outpatient R [facility] [id number] Univers 10:20:00 10:20:00 [facility] ankush o [facility] 2021-09-25 2021-09-25 Outpatient R PRASANNA VARGAS [facility] [id number] Univers 10:00:00 10:00:00 ity of [facility] 2021-09-25 2021-09-25 Telephone [facility] 1.2.840.114 [id number] Univers 00:00:00 00:00:00 [facility] 350.1.13.10 i ty of [place] 4.2.7.2.686 [place] as TOÑO?BLEA [phone] [facility] 370 [facility] OFFICE [facility] 2021-09-25 2021-09-25 Patient Prasanna Vargas [facility] 1.2.830.659 [id number] Univers 00:00:00 00:00:00 Secure Msg Cam [facility] 350.1.13.10 ity of [place] 4.2.7.2.686 [place] [phone] Nc dical NAL 134 [facility] 2021-09-25 2021-09-25 Telephone Addisonhayleygracie [facility] 1.2.840.114 [id number] Univers 00:00:00 00:00:00 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 350.1.13.10 ity of [facility] 4.2.7.2.686 Martin as MATERNAL [id number] [facility] ical & CHILD [address] [place] [address] 2021-09-25 2021-09-25 Telephone Apurva [facility] 1.2.865.295 [id number] Univers 00:00:00 00:00:00 Celina Cannon FLACO 350.1.13.10 ity of [facility] 4.2.7.2.686 [place] [id number] [address] 2021-09-15 2021-09-15 Patient Robb [facility] 1.2.840.114 [id number] Univers 00:00:00 00:00:00 Secure Msg Kendal Munir HEALTH 350.1.13.10 ity of [place] 4.2.7.2.686 Martin as TOÑO?BLEA [id number] Nc dical KNEY [address] MEDICAL OFFICE [facility] 2021-09-15 2021-09-15 Patient Zamudio [facility] 1.2.840.114 [id number] Univers 00:00:00 00:00:00 Secure Msg Kendal Munir HEALTH 350.1.13.10 ity of [facility] 4.2.7.2.686 [place] as TOÑO?BLEA [id number] Nc dical KNEY 044 [facility] OFFICE [facility] 2021-09-15 2021-09-15 Patient Robb [facility] 1.2.840.114 [id number] Univers 00:00:00 00:00:00 Secure Msg Kendal M HEALTH 350.1.13.10 ity of [facility] 4.2.7.2.686 [place] as TOÑO?BLEA [id number] Nc dical KNEY 044 [facility] OFFICE [facility] 2021-09-14 2021-09-14 Patient Juan [facility] 1.2.840.114 [id number] Univers 00:00:00 00:00:00 Secure Msg Vijay HEALTH 350.1.13.10 ity of [place] 4.2.7.2.686 Martin as TOÑO?BLEA [phone] Nc whit [address] MEDICAL OFFICE [facility] 2021-09-12 2021-09-12 Outpatient Farzana MIXON [facility] [id number] Univers 10:30:00 10:30:00 CELINA ity [facility] 2021-09-12 2021-09-12 [facility] [id number] Univers 10:30:00 10:30:00 CELINA chino [facility] 2021-09-12 2021-09-12 Patient Meet [facility] 1.2.840.114 [id number] Univers 00:00:00 00:00:00 Secure Msg [facility] 350.1.13.10 ity of [place] 4.2.7.2.686 [place] [facility] [id number] [facility] AND DEPEW [address] [facility] 2021-09-12 2021-09-12 Orders Doctor JORDAN 1.2.840.114 [id number] Univers 00:00:00 00:00:00 Only Unassigned, YAZMIN 350.1.13.10 ity of [place] [facility] 4.2.7.2.686 Martin as [id number] [facility] [address] 2021-09-12 2021-09-12 Patient Juan [facility] 1.2.840.114 [id number] Univers 00:00:00 00:00:00 Secure Msg Vijay HEALTH 350.1.13.10 ity of [facility] 4.2.7.2.686 [place] as TOÑO?BLEA [phone] Nc whit [place] [address] [place] [address] MEDICAL OFFICE BUILDING 2021-09-05 2021-09-05 Patient Juan [facility] 1.2.840.114 [id number] Univers 00:00:00 00:00:00 Secure Msg Vijay HEALTH 350.1.13.10 ity of [facility] 4.2.7.2.686 [place] as TOÑO?BLEA [phone] Me whit [place] [address] [place] [address] MEDICAL OFFICE [facility] 2021-09-04 2021-09-04 Patient Juan [facility] 1.2.840.114 [id number] Univers 00:00:00 00:00:00 Secure Msg Vijay HEALTH 350.1.13.10 ity of [place] 4.2.7.2.686 Martin as TOÑO?BLEA [id number] Nc whit [place] [address] MEDICAL OFFICE [facility] 2021-08-25 2021-08-25 Telephone Aditi [facility] 1.2.840.114 [id number] Univers 00:00:00 00:00:00 Dania L HEALTH 350.1.13.10 it y of [place] 4.2.7.2.686 Martin as TOÑO?BLEA [id number] Nc whit [place] [address] [facility] OFFICE [facility] 2021-08-25 2021-08-25 Patient Juan [facility] 1.2.840.114 [id number] Univers 00:00:00 00:00:00 Secure Msg Vijay HEALTH 350.1.13.10 ity of [place] 4.2.7.2.686 Martin as TOÑO?BLEA [phone] Nc whit [place] 0[address] [facility] OFFICE [facility] 2021-08-24 2021-08-24 Telephone Juan [facility] 1.2.499.189 [id number] Univers 00:00:00 00:00:00 Vijay HEALTH 350.1.13.10 it y of [place] 4.2.7.2.686 [place] as TOÑO?BLEA [phone] Nc whit [place] [address] MEDICAL OFFICE [facility] 2021-08-24 2021-08-24 Patient [facility] 1.2.840.114 [id number] Univers 00:00:00 00:00:00 Secure Msg Vijay HEALTH 350.1.13.10 ity of [place] 4.2.7.2.686 Martin as TOÑO?BLEA [phone] Nc whit [place] [address] [place] [address] OFFICE [facility] 2021-08-23 2021-08-23 Patient Juan [facility] 1.2.840.114 [id number] Univers 00:00:00 00:00:00 Secure Msg Vijay HEALTH 350.1.13.10 ity of [place] 4.2.7.2.686 Martin as TOÑO?BLEA [id number] Nc whit [place] [address] [place] [address] MEDICAL OFFICE [facility] 2021-08-23 2021-08-23 Telephone [facility] 1.2.106.786 [id number] Univers 00:00:00 00:00:00 Vijay HEALTH 350.1.13.10 it y of [place] 4.2.7.2.686 Martin as TOÑO?BLEA [phone] Nc whit [place] [address] [place] [address] MEDICAL OFFICE [facility] 2021-08-22 2021-08-22 Telephone [facility] 1.2.816.929 [id number] Univers 00:00:00 00:00:00 Vijay HEALTH 350.1.13.10 it y of [place] 4.2.7.2.686 Martin as TOÑO?BLEA [phone] Nc whit [address] OFFICE [facility] 2021-08-22 2021-08-22 Patient [facility] 1.2.840.114 [id number] Univers 00:00:00 00:00:00 Secure Ms Hallie HEALTH 350.1.13.10 ity of [place] 4.2.7.2.686 Martin as TOÑO?BLEA [id number] Nc whit [place] [address] [place] [address] OFFICE [facility] 2021-08-18 2021-08-18 Telephone [facility] 1.2.026.433 [id number] Univers 00:00:00 00:00:00 Vijay HEALTH 350.1.13.10 it y of [place] 4.2.7.2.686 Martin as TOÑO?BLEA [id number] Nc whit [place] [address] [place] [address] OFFICE [facility] 2021-08-17 2021-08-17 Outpatient Farzana MIXON [facility] [id number] Univers 09:00:00 09:00:00 CELINA lechuga [facility] 2021-08-17 2021-08-17 Outpatient Farzana MIXON [facility] [id number] Univers 09:00:00 09:00:00 CELINA lechuga [facility] 2021-08-16 2021-08-16 Patient [facility] 1.2.840.114 [id number] Univers 00:00:00 00:00:00 Secure [facility] 350.1.13.10 ity of [place] 4.2.7.2.686 Martin as TOÑO?BLEA [id number] Nc whit [place] [address] [facility] OFFICE [facility] 2021-08-15 2021-08-15 Office [facility] 1.2.840.114 [id number] Univers 15:30:00 16:16:42 Visit [facility] 350.1.13.10 it y of [place] 4.2.7.2.686 Martin as TOÑO?BLEA [phone] Nc dicaliyah [place] [address] [facility] 2021-08-15 2021-08-15 Outpatient Farzana KIM [facility] [id number] Univers 15:30:00 16:16:42 [facility] 2021-08-15 2021-08-15 Outpatient Farzana KIM [facility] [id number] Univers 15:30:00 15:30:00 [facility] 2021-08-15 2021-08-15 [facility] [id number] Univers 15:30:00 15:30:00 [facility] 2021-08-15 2021-08-15 Outpatient Farzana [facility] [id number] Univers 15:30:00 15:30:00 [facility] 2021-08-15 2021-08-15 Emergency Aj [facility] ERT [id number] Univers 09:27:00 12:26:00 [facility] 2021-08-15 2021-08-15 Emergency [facility] 1.2.236.183 [id number] Univers 09:27:00 12:26:00 Maura White LULU 350.1.13.10 ity kenan [place] 4.2.7.2.686 [facility] [id number] [address] 2021-08-15 2021-08-15 Emergency Aj [facility] ERT [id number] Univers 09:27:00 12:26:00 [facility] 2021-08-14 2021-08-14 Outpatient R JUAN [facility] [id number] Univers 13:25:00 23:59:00 VIJAY lechuga [facility] 2021-08-14 2021-08-14 Outpatient R JUAN [facility] [id number] Univers 13:25:00 23:59:00 VIJAY lechuga [facility] 2021-08-14 2021-08-14 Outpatient R JUAN [facility] [id number] Univers 13:25:00 13:25:00 VIJAY lechuga [facility] 2021-08-14 2021-08-14 Outpatient R JUAN [facility] [id number] Univers 12:19:07 13:24:00 VIJAY lechuga [facility] 2021-08-14 2021-08-14 Outpatient R JUAN [facility] [id number] Univers 12:19:07 13:24:00 VIJAY lechuga [facility] 2021-08-14 2021-08-14 [facility], Ang - Db [facility] 1.2.840.1 14 [id number] Univers 12:30:00 13:01:24 Visit Vijay Martinez 350.1.13.10 ity of [place] 4.2.7.2.686 Martin as TOÑO?BLEA [phone] [facility] [address] MEDICAL OFFICE [facility] 2021-08-14 2021-08-14 [facility], Ang - Db [facility] 1.2.840.1 14 [id number] Univers 12:30:00 12:45:00 Visit Vijay Martinez 350.1.13.10 ity of [place] 4.2.7.2.686 Martin as TOÑO?BLEA [id number] [facility] [address] MEDICAL OFFICE [facility] 2021-08-14 2021-08-14 Office Juan [facility] 1.2.840.114 [id number] Univers 11:30:00 12:31:12 Visit Vijay PETTY 350.1.13.10 it y of [place] 4.2.7.2.686 Martin as TOÑO?BLEA [id number] [facility] [address] MEDICAL OFFICE BUILDING 2021-08-14 2021-08-14 Outpatient R JUAN [facility] [id number] Univers 11:30:00 12:31:12 VIJAY lechuga [facility] 2021-08-14 2021-08-14 Patient [facility] 1.2.840.114 [id number] Univers 00:00:00 00:00:00 Secure Msg Vijay [facility] 350.1.13.10 ity of [place] 4.2.7.2.686 Martin as TOÑO?BLEA [phone] Nc whit [place] [address] [facility] OFFICE [facility] 2021-08-09 2021-08-09 Outpatient R JUDY [facility] [id number] Univers 14:45:00 14:45:00 ADÁN chino [facility] 2021-08-09 2021-08-09 Telephone VíctorkassandraREHABIL[facility] 1.2.608.575 [id number] Univers 00:00:00 00:00:00 Vijay [facility] 350.1.13.10 it y of [place] 4.2.7.2.686 Martin as TOÑO?BLEA [id number] Nc whit [facility] 044 [facility] OFFICE [facility] 2021-08-08 2021-08-08 Outpatient R JUAN [facility] [id number] Univers 11:30:00 23:59:00 VIJAY lechuga [facility] 2021-08-08 2021-08-08 Hospital [facility] 1.2.840.114 [id number] Univers 11:30:00 23:59:00 Encounter VijayCount includes the [facility] [id number] ity [facility] [id number] Martin as TOÑO?BLEA [phone] [place] alessandraaliyah [place] 808 [facility] OFFICE [facility] 2021-08-08 2021-08-08 Outpatient R JUAN [facility] [id number] Univers 11:15:00 11:15:00 VIJAY lechuga [facility] 2021-08-08 2021-08-08 Outpatient R JUAN [facility] [id number] Univers 11:00:00 11:00:00 VIJAY lechuga [facility] 2021-08-08 2021-08-08 Patient Doctor JORDAN 1.2.840.114 [id number] Univers 00:00:00 00:00:00 Secure Msg Unassigned, YAZMIN [id number] [facility] [id number] Martin as [phone] [address] 2021-08-07 2021-08-07 Office Juan [facility] 1.2.840.114 [id number] Univers 09:30:00 10:23:21 Visit Vijay HEALTH [id number] it y of [place] [id number] Martin as TOÑO?BLEA [id number] [address] OFFICE [facility] 2021-08-07 2021-08-07 Outpatient R JUAN [facility] [id number] Univers 09:30:00 10:23:21 VIJAY lechuga [facility] 2021-08-07 2021-08-07 Outpatient R JUAN [facility] [id number] Univers 09:30:00 09:30:00 VIJAY hirenchino [facility] 2021-08-07 2021-08-07 [facility] 1.2.840.114 [id number] Univers 00:00:00 00:00:00 Secure Msg Vijay HEALTH [id number] ity of [place] [id number] Martin as TOÑO?BLEA [id number] [address] OFFICE [facility] 2021-08-07 2021-08-07 Patient Víctorkassandra [facility] 1.2.840.114 [id number] Univers 00:00:00 00:00:00 Secure Msg Vijay HEALTH [id number] ity of [place] [id number] Martin as TOÑO?BLEA [id number] [address] OFFICE [facility] 2021-08-07 2021-08-07 Patient Apurva [facility] [facility] 1.2.840.114 [id number] Univers 00:00:00 00:00:00 Secure Msg Celina Cannon FLACO 350.1.13.10 ity of [facility] 4.2.7.2.686 [place] [id number] [address] 2021-08-04 2021-08-04 Outpatient R SHADIA [facility] [id number] Univers 10:00:00 10:00:00 PETRA ity of [facility] 2021-08-04 2021-08-04 Patient Juan [facility] 1.2.840.114 [id number] Univers 00:00:00 00:00:00 Secure Msg Vijay HEALTH 350.1.13.10 ity of [facility] 4.2.7.2.686 [place] TOÑO?BLEA [id number] [address] MEDICAL OFFICE BUILDING 2021-08-03 2021-08-03 Office SOURAV Diaz 1.2.840.114 [id number] Univers 11:00:00 12:48:43 Visit Jayy Y 350.1.13.10 it y of [facility] 4.2.7.2.686 [place] as BANK [phone] [facility] [address] [place] [address] 2021-08-03 2021-08-03 Outpatient [facility] [id number] Univers 11:00:00 12:48:43 JAYY ity [facility] 2021-08-03 2021-08-03 Outpatient R [facility] [id number] Univers 11:00:00 11:00:00 JAYY ity [facility] 2021-08-03 2021-08-03 Patient Apurva [facility] 1.2.840.114 [id number] Univers 00:00:00 00:00:00 Secure Msg Celina A FLACO 350.1.13.10 ity of [facility] 4.2.7.2.[place] [phone] [address] 2021-08-02 2021-08-02 Telephone Juan [facility] 1.2.182.185 [id number] Univers 00:00:00 00:00:00 Vijay HEALTH 350.1.13.10 it y of [facility] 4.2.7.2.686 [place] as TOÑO?BLEA [phone] Nc dic[address] MEDICAL OFFICE BUILDING 2021-07-21 2021-07-21 Outpatient R YOSELIN, DARRION [facility] [id number] Univers 08:00:00 08:52:53 DARRION WYATT chino [facility] 2021-07-17 2021-07-17 Outpatient R JUAN [facility] [id number] Univers 11:30:00 11:30:00 VIJAY itchino [facility] 2021-06-19 2021-06-19 Telephone [facility] 1.2.763.657 [id number] Univers 00:00:00 00:00:00 Vijay MeshApp 350.1.13.10 it y of [facility] 4.2.7.2.686 [place] TOÑO?BLEA [phone] [place] dicaliyah KNEY [address] MEDICAL OFFICE BUILDING 2021-06-09 2021-06-09 Telephone [facility] 1.2.838.625 [id number] Univers 00:00:00 00:00:00 Reji [place] 350.1.13.10 ity of [place].2.7.2.686 [place] [phone] Nc alessandraaliyah MELISSA 059 [facility] 2021-06-06 2021-06-06 Outpatient R DEYVI [facility] [id number] Univers 11:15:00 11:15:00 TETO lechuga [facility] 2021-06-06 2021-06-06 Outpatient R DEYVI [facility] [id number] Univers 11:15:00 11:15:00 TETO lechuga [facility] 2021-06-02 2021-06-02 Outpatient R CRISTINA [facility] [id number] Univers 15:45:00 15:45:00 WONDIFUL ity o f [facility] 2021-05-31 2021-05-31 Outpatient R JUAN [facility] [id number] Univers 10:00:00 10:46:31 VIJAY lechuga [facility] 2021-05-31 2021-05-31 Office [facility] 1.2.840.114 [id number] Univers 10:00:00 10:46:31 Visit Vijay [facility] 350.1.13.10 it y of [facility] 4.2.7.2.686 [place] TOÑO?BLEA [phone] [facility] 044 [facility] OFFICE [facility] 2021-05-31 2021-05-31 Outpatient R JUAN [facility] [id number] Univers 10:00:00 10:46:31 VIJAY hirenchino [facility] 2021-05-31 2021-05-31 Orders Doctor JORDAN 1.2.840.114 [id number] Univers 00:00:00 00:00:00 Only Unassigned, YAZMIN 350.1.13.10 ity of [place] [facility] 4.2.7.2.686 Martin as [id number] [address] 2021-05-26 2021-05-26 Telephone [facility] 1.2.864.715 [id number] Univers 00:00:00 00:00:00 Skylar A HEALTH 350.1.13.10 i ty of [place] 4.2.7.2.686 [place] as TOÑO?BLEA [id number] [address] OFFICE [facility] 2021-05-26 2021-05-26 Patient Prasanna Vargas [facility] 1.2.430.027 [id number] Univers 00:00:00 00:00:00 Secure Msg Cam [facility] 350.1.13.10 ity of [place].2.7.2.[place] [phone] [facility] 134 [facility] 2021-05-25 2021-05-25 Telemedici [facility] 1.2.840.114 [id number] Univers 14:00:00 14:30:00 ne Visit Skylar A HEALTH 350.1.13.10 ity of [place] 4.2.7.2.686 [place] as TOÑO?BLEA [id number] [address] 2021-05-25 2021-05-25 Outpatient R YANELI [facility] [id number] Univers 14:00:00 14:00:00 SKYLAR lechuga [facility] 2021-05-25 2021-05-25 Outpatient R YANELI [facility] [id number] Univers 14:00:00 14:00:00 SKYLAR lechuga [facility] 2021-05-24 2021-05-24 Telephone Ponce [facility] 1.2.734.966 [id number] Univers 00:00:00 00:00:00 Rad LAWSON 350.1.13.10 ity of [place] 4.2.7.2.[place] [phone] Nc dical NAL 059 [facility] 2021-05-23 2021-05-23 Outpatient R [facility] [id number] Univers 10:00:00 10:00:00 ity [facility] 2021-05-23 2021-05-23 Outpatient R [facility] [id number] Univers 10:00:00 10:00:00 [facility] 2021-05-16 2021-05-16 Outpatient [facility] [id number] Univers 09:00:00 09:00:00 TETO [facility] 2021-05-12 2021-05-12 Orders Doctor JORDAN 1.2.840.114 [id number] Univers 00:00:00 00:00:00 Only Unassigned, YAZMIN 350.1.13.[address] [facility] 4.2.7.2.686 [place] as [phone] [address] 2021-05-10 2021-05-10 Outpatient R CRISTINA [facility] [id number] Univers 13:00:00 13:00:00 WONDIFUL ity o f [facility] 2021-05-10 2021-05-10 Outpatient [facility] [id number] Univers 13:00:00 13:00:00 WONDIFUL ity o f [facility] 2021-05-09 2021-05-09 Telephone Prasanna Vargas [facility] 1.2.840.114 [id number] Univers 00:00:00 00:00:00 Jm [place] 350.1.13.10 i ty of [facility] [place].2.7.2.[place] [phone] Nc dical NAL 134 [facility] 2021-05-09 2021-05-09 Patient Ponce [facility] 1.2.840.114 [id number] Univers 00:00:00 00:00:00 Secure Msg Rad [place] 350.1.13.10 ity of [facility] 4.2.7.2.[place] [phone] Nc dical NAL 059 [facility] 2021-05-08 2021-05-08 Outpatient R YASMEEN [facility] [id number] Univers 16:00:00 16:00:00 JE ity [facility] 2021-05-08 2021-05-08 Outpatient R [facility] [id number] Univers 16:00:00 16:00:00 JE ankush [facility] 2021-05-08 2021-05-08 Patient [facility] 1.2.840.114 [id number] Univers 00:00:00 00:00:00 Secure Msg Rad [place] 350.1.13.10 ity of [facility] 4.2.7.2.[place] [phone] Nc dical NAL 059 [facility] 2021-05-08 2021-05-08 Patient Ponce [facility] 1.2.840.114 [id number] Univers 00:00:00 00:00:00 Secure Msg Rad [place] 350.1.13.10 ity of [place] 4.2.7.2.686 [place] [phone] Nc dical NAL 059 [facility] 2021-05-03 2021-05-03 Outpatient R ARJUN [facility] [id number] Univers 11:15:36 23:59:00 REJI lechuga o f [facility] 2021-05-03 2021-05-03 [facility] 1.2.840.114 [id number] Univers 11:15:36 23:59:00 Encounter Reji [place] 350.1.13.10 ity of [facility] 4.2.7.2.[place] [phone] Nc dical NAL 846 [facility] 2021-05-03 2021-05-03 Telephone Cristina [facility] 1.2.840.114 [id number] Univers 00:00:00 00:00:00 Wondiful A HEALTH 350.1.13.10 ity of [place] 4.2.7.2.686 [place] as TOÑO?BLEA [id number] [address] OFFICE [facility] 2021-05-02 2021-05-02 Tele[facility] 1.2.646.595 [id number] Univers 00:00:00 00:00:00 Sendil [facility] [place] 350.1.13.10 ity of [facility] 4.2.7.2.[place] [phone] [address] 2021-05-02 2021-05-02 Patient [facility] 1.2.840.114 [id number] Univers 00:00:00 00:00:00 Secure Msg Wondiful A HEALTH 350.1.13.10 ity of [facility] 4.2.7.2.686 [place] as TOÑO?BLEA [id number] [address] 2021-05-02 2021-05-02 Telephone [facility] 1.2.840.114 [id number] Univers 00:00:00 00:00:00 Wondiful A HEALTH 350.1.13.10 ity of [place] 4.2.7.2.686 [place] as TOÑO?BLEA [phone] [address] OFFICE [facility] 2021-05-02 2021-05-02 Patient [facility] 1.2.840.114 [id number] Univers 00:00:00 00:00:00 Secure Msg Sendil [facility] [place] 350.1.13.10 ity of [facility] 4.2.[place] [phone] [address] 2021-04-27 2021-04-27 Emergency X ALFONSO ARDAISY ERT [id number] Univers 14:24:00 15:49:00 MAGGIE itchino [facility] 2021-04-27 2021-04-27 Emergency Alfonso [facility] 1.2.840.114 [id number] Univers 14:24:00 15:49:00 Maggie [place] 350.1.13.10 ity of [facility] 4.2.7.2.686 [place] [phone] [facility] [address] [place] 2021-04-27 2021-04-27 Laboratory Only, Ang Db Test [facility] 1.2.8 40.114 [id number] Univers 11:15:00 11:30:00 Only Unknown, Attending HEALTH 350.1.13.10 ity of CyrilglennThony chavez [facility] 4.2.7.2.686 [place] TOÑO?BLEA [phone] [facility] [address] MEDICAL OFFICE BUILDING 2021-04-27 2021-04-27 Outpatient R SIL [facility] [id number] Univers 11:15:00 11:15:00 RANIA ity of [facility] 2021-04-27 2021-04-27 Orders Doctor ORTEGA 1.2.840.114 [id number] Univers 00:00:00 00:00:00 Only Unassigned, YAZMIN 350.1.13.10 ity of [place] [facility] 4.2.7.2.686 [place] as [phone] [facility] [address] 2021-04-20 2021-04-20 Outpatient R JUSTINE [facility] [id number] Univers 15:00:00 15:00:00 SCOTT ity of [facility] 2021-04-13 2021-04-13 Patient Cristina [facility] 1.2.840.114 [id number] Univers 00:00:00 00:00:00 Secure Msg Wondiful A HEALTH 350.1.13.10 ity of [place] 4.2.7.2.686 [place] as TOÑO?BLEA [phone] [place] alessandraaliyah [place] [address] [place] MEDICAL OFFICE BUILDING 2021-04-12 2021-04-12 Telephone Cristina [facility] 1.2.840.114 [id number] Univers 00:00:00 00:00:00 Wondiful A HEALTH 350.1.13.10 ity of [place] 4.2.7.2.686 [place] as TOÑO?BLEA [phone] [facility] 044 [facility] OFFICE [facility] 2021-03-27 2021-03-27 Telephone Prasanna Vargas [facility] 1.2.840.114 [id number] Univers 00:00:00 00:00:00 Cam [place] 350.1.13.10 i ty of [place] 4[place]2.7.2.[place] [phone] [address] 2021-03-23 2021-03-23 Outpatient R KAVYA [facility] [id number] Univers 13:30:00 13:30:00 CHILVANA ity o f [facility] 2021-03-23 2021-03-23 Outpatient R KAVYA [facility] [id number] Univers 13:30:00 13:30:00 CHILVANA ity o f [facility] 2021-03-22 2021-03-22 Outpatient R [facility]NA [facility] [id number] Univers 09:20:00 09:20:00 JEANNA [facility] ity [facility] 2021-03-22 2021-03-22 Outpatient R JEANNA [facility] [id number] Univers 09:20:00 09:20:00 KILEY [facility] 2021-03-20 2021-03-20 Outpatient R CRISTINA [facility] [id number] Univers 00:00:00 00:00:00 WONDIFUL ity o f [facility] 2021-03-18 2021-03-18 Case [facility] 1.2.840.114 [id number] Univers 00:00:00 00:00:00 Management Wondiful A HEALTH 350.1.13.10 ity of [place] 4.2.7.2.686 [place] as TOÑO?BLEA [id number] [address] 2021-03-16 2021-03-16 [facility], Ang - Db [facility] 1.2.840.1 [id number] Univers 11:16:07 11:31:07 Visit Claudette Evans A HEALTH 350.1.13.1 0 ity of [place] 4.2.7.2.686 [place] as TOÑO?BLEA [phone] Nc whit [place] [address] [place] MEDICAL OFFICE [facility] 2021-03-16 2021-03-16 Outpatient R CRISTINA [facility] [id number] Univers 11:30:00 11:30:00 WONDIFUL ity o f [facility] 2021-03-16 2021-03-16 Outpatient R CRISTINA [facility] [id number] Univers 11:00:00 11:14:45 WONDIFUL ity o f [facility] 2021-03-16 2021-03-16 Office [facility] 1.2.840.114 [id number] Univers 10:00:58 11:14:45 Visit Wondiful A HEALTH 350.1.13.10 ity of [place] 4.2.7.2.686 [place] as TOÑO?BLEA [phone] Nc whit [address] OFFICE [facility] 2021-03-16 2021-03-16 Patient Cristina [facility] 1.2.840.114 [id number] Univers 00:00:00 00:00:00 Secure Msg Wondiful A HEALTH 350.1.13.10 ity of [place] 4.2.7.2.686 [place] as TOÑO?BLEA [phone] Nc whit [place] [address] [place] [address] OFFICE [facility] 2021-03-02 2021-03-02 Outpatient R CRISTINA [facility] [id number] Univers 16:15:00 16:15:00 WONDIFUL ity o [facility] 2021-02-28 2021-02-28 Outpatient R MITCHELL [facility] [id number] Univers 18:30:00 18:30:00 ILEANA ity of [facility] 2021-02-28 2021-02-28 Telephone [facility] 1.2.840.114 [id number] Univers 00:00:00 00:00:00 Wondiful A Health 350.1.13.10 ity of [place] 4.2.7.2.686 [place] as Toño?Blea [phone] Nc whit [address] Office [facility] 2021-02-27 2021-02-27 Outpatient R STEPHANY [facility] [id number] Univers 09:00:00 09:00:00 AMELIA lechuga of [facility] 2021-02-23 2021-02-23 Telephone [facility] 1.2.840.114 [id number] Univers 00:00:00 00:00:00 Wondiful A Health 350.1.13.10 ity of [place] 4.2.7.2.686 [place] as Toño?Blea [id number] Nc whit [place] [address] [place] Medical Office [facility] 2021-02-10 2021-02-10 Emergency Kaycee Méndez [facility] 1.2.840.114 [id number] Univers 18:12:00 23:39:00 Sharlene [place] 350.1.13.10 i ty of [place] 4.2.7.2.686 [place] [phone] [facility] [address] [place] 2021-02-09 2021-02-09 Hospital [facility] 1.2.623.621 [id number] Univers 13:40:00 23:59:00 Encounter Wondiful A Health 350.1.13.10 ity of [place] 4.2.7.2.686 [place] as Toño?Blea [phone] Nc whit [place] [address] [place] Medical Office [facility] 2021-02-09 2021-02-09 [facility], Ang - Db [facility] 1.2.840.1 14 [id number] Univers 13:49:05 14:04:05 Visit Claudette Evans [facility] 350.1.13.1 0 ity of [place] 4.2.7.2.686 [place] as Toño?Blea [phone] Nc whit [place] [address] [place] Medical Office Building 2021-02-09 2021-02-09 Office [facility]RE[facility] 1.2.840.114 [id number] Univers 12:23:13 13:47:12 Visit Wondiful A Health 350.1.13.10 ity of [place] 4.2.7.2.686 [place] as Toño?Blea [phone] Nc whit [place] 044 [facility] Office [facility] 2021-02-09 2021-02-09 Outpatient R CRISTINA [facility] [id number] Univers 13:00:00 13:00:00 WONDIFUL ity o f [facility] 2021-02-08 2021-02-08 Outpatient R NEHEMIAH MEEKSCTEz [facility] [id number] Univers 10:20:00 10:20:00 ADITYA MEEKS [facility] 2021-02-02 2021-02-02 Outpatient [facility] [id number] Univers 10:30:00 10:30:00 SKYLARLEE lechuga [facility] 2021-02-02 2021-02-02 Telephone [facility] 1.2.840.114 [id number] Univers 00:00:00 00:00:00 Wondiful A Health 350.1.13.10 ity of [place] 4.2.7.2.686 [place] as Toño?Blea [phone] [address] Medical Office [facility] 2021-02-01 2021-02-01 Outpatient R [facility] [id number] Univers 08:30:00 08:30:00 SKYLAR chino [facility] 2021-01-31 2021-01-31 [facility] 1.2.840.114 [id number] Univers 18:44:04 19:41:26 Care [facility] Health 350.1.13.10 i ty of [place] 4.2.7.2.686 [place] as Toño?Blea [phone] [facility] [address] [place] Medical Office [facility] 2021-01-31 2021-01-31 Outpatient R [facility] [id number] Univers 19:00:00 19:00:00 FLACO ity o f [facility] 2021-01-31 2021-01-31 Telephone [facility] 1.2.840.114 [id number] Univers 00:00:00 00:00:00 Wondiful A Health 350.1.13.10 ity of [place] 4.2.7.2.686 [place] as Toño?Blea [id number] [address] Medical Office Building 2021-01-30 2021-01-30 Telephone [facility] 1.2.526.234 [id number] Univers 00:00:00 00:00:00 Sendil Cuate Lawson 350.1.13.10 ity of [place].2.[place].2.[place] [phone] [place] whit melissa [address] [facility] 2021-01-26 2021-01-26 Outpatient [facility] [id number] Univers 14:00:00 14:00:00 SENDIL ity [facility] 2021-01-25 2021-01-25 Outpatient R [facility] [id number] Univers 15:00:00 15:00:00 [facility] 2021-01-20 2021-01-20 Telemedici [facility]RE[facility] 1.2.840.114 [id number] Univers 16:51:22 17:12:41 ne Visit [facility] 350.1.13.10 ity [facility] 4.2.7.2.686 [place] Toño?Blea [phone] [facility] [address] [place] Medical Office [facility] 2021-01-20 2021-01-20 Outpatient R [facility]IL[facility] [id number] Univers 16:30:00 16:30:00 SKYLAR [facility] 2021-01-19 2021-01-19 Outpatient R L[facility]ILUTHERAN [facility] [id number] Univers 10:15:00 10:15:00 KAYLEY [facility] 2021-01-14 2021-01-14 JORDAN Guzman 1.2.840.114 [id number] Univers 00:00:00 00:00:00 Management Kassandra ARCE 350.1.13.10 ity of [facility] 4.2.7.2.686 [place] as [phone] [address] 2021-01-12 2021-01-12 Emergency [facility] 1.2.844.505 [id number] Univers 16:10:00 19:45:00 Karin [place] 350.1.13.10 i ty of [place] 4.2.[place].2.[place] [phone] [facility] [address] [place] 2021-01-12 2021-01-12 Outpatient R MITCHELL [facility] [id number] Univers 15:20:00 15:20:00 ILEANA [facility] 2021-01-12 2021-01-12 Urgent Thony Johnson [facility] 1.2.840.114 [id number] Univers 14:46:57 15:06:57 Noelle Mitchell [facility] 350.1.13.10 ity [facility] 4.2.7.2.686 [place] as Toño?Blea [id number] [address] Office [facility] 2020-12-26 2020-12-26 Outpatient R [facility] [id number] Univers 15:30:00 16:13:32 SENDIL [facility] 2020-12-26 2020-12-26 Office [facility] 1.2.840.114 [id number] Univers 15:30:00 16:13:32 Visit Sendmn Cuate LAWSON 350.1.13.10 ity [facility] 4.2.7.2.[place] [facility] [phone] [facility] 059 [facility] 2020-12-26 2020-12-26 Office [facility] 1.2.840.114 [id number] Univers 15:00:32 16:13:32 Visit Rad Lawson 350.1.13.10 ity [facility] 4.2.7.2.[place] [phone] [facility] nal 9 [facility] 2020-12-26 2020-12-26 Outpatient R PONCE [facility] [id number] Univers 15:30:00 15:30:00 SENDIL [facility] 2020-11-22 2020-11-22 Outpatient R APURVA [facility] [id number] Univers 11:00:00 11:00:00 CELINA lechuga [facility] 2020-11-10 2020-11-10 Urgent Dennis Alissa [facility] 1.2.840.114 [id number] 18:42:46 19:53:43 [facility] 350.1.13.10 [place] 4.2.7.2.686 Professio [phone] nal [address] Office [address] One 2020-11-10 2020-11-10 Outpatient R [facility] [id number] Univers 19:00:00 19:00:00 ity [facility] 2020-10-31 2020-10-31 Emergency Dev, K [facility] 1.2.840.114 [id number] 18:52:00 22:15:00 Sharlene Lulu 350.1.13.10 [place] 4.2.7.2.686 [place] [phone] [id number] 2020-10-31 2020-10-31 Outpatient R [facility]AL[facility] [id number] Univers 19:00:00 19:00:00 BEBA ankush davis [facility] 2020-10-31 2020-10-31 Orders Doctor JORDAN 1.2.840.114 [id number] 00:00:00 00:00:00 Only Unassigned, YAZMIN 350.1.13.10 [place] [facility] 4.2.7.2.686 [id number] 2020-10-20 2020-10-20 Emergency Dev Kaycee [facility] [id number] 14:02:00 17:13:00 Sharlene Lawson [id number] [place] [id number] [place] [id number] 2020-10-14 2020-10-14 [facility] Prasanna Vargas [facility] [id number] 10:00:00 23:59:00 Encounter Jm Lawson [id number] [place] [id number] [place] [id number] 2020-10-14 2020-10-14 [facility] [id number] Univers 13:30:00 13:30:00 CELINA lechuga [facility] 2020-10-09 2020-10-09 [facility] [id number] 12:00:00 15:57:00 Anna Lawson [id number] [place] 4.2.7.2.686 [place] [id number] 2020-10-06 2020-10-06 Office Prasanna Vargas [facility] [id number] 08:53:00 09:46:44 Visit Jm Lawson [id number] [place] 4.2.7.2.686 [facility] [id number] nal 134 Building 2020-10-06 2020-10-06 Outpatient R PRASANNA VARGAS [facility] [id number] Univers 09:30:00 [facility]-10-04 2020-10-04 Outpatient Farzana MIXON [facility] [id number] Univers 14:00:00 [facility]00[facility] 2020-[facility]-30 Outpatient Farzana MIXON [facility] [id number] Univers 10:30:00 10:30:[facility] 2020-09-29 2020-09-29 Outpatient Farzana SHAY [facility] [id number] Univers 13:45:00 13:45:00 PREET [facility] 2020-09-06 2020-09-06 Outpatient Farzana VARGAS PRASANNA [facility] [id number] Univers 15:30:00 15:30:00 [facility] 2020-09-02 2020-09-02 Outpatient R DARRION WYATT [facility] [id number] Univers 15:40:00 15:40:00 DARRION WYATT [facility] 2020-08-31 2020-08-31 Outpatient R PONCE [facility] [id number] Univers 10:30:00 10:30:00 SENDIL [facility] 2020-08-18 2020-08-18 Outpatient Farzana VARGAS PRASANNA [facility] [id number] Univers 09:30:00 09:30:00 [facility] [facility] 2020-08-11 2020-08-11 Outpatient Farzana VAGRAS PRASANNA [facility] [id number] Univers 13:30:00 13:30:00 [facility] 2020-08-04 2020-08-04 Outpatient R JUSTINE [facility] [id number] Univers 14:00:00 14:00:00 SCOTT ity [facility] 2020-07-28 2020-07-28 Outpatient R PONCE [facility] [id number] Univers 10:30:00 10:30:00 SENDIL ity [facility] 2020-06-30 2020-06-30 Outpatient R CRISTINA [facility] [id number] Univers 16:15:00 16:15:00 WONDIFUL ity o f [facility] 2020-06-17 2020-06-17 Outpatient R DARRION WYATT [facility] [id number] Univers 15:00:00 15:00:00 [facility]ION W[facility]ATT [facility] 2020-06-16 2020-06-16 Outpatient R PONCE [facility] [id number] Univers 15:30:00 15:30:00 SENDIL [facility] 2020-06-09 2020-06-09 Outpatient R NI DISLA [facility] [id number] Univers 12:30:00 12:30:00 ity [facility] 2020-06-08 2020-06-08 Outpatient R NI DISLA [facility] [id number] Univers 08:00:00 08:00:00 ity [facility] 2020-06-02 2020-06-02 Outpatient R PONCE [facility] [id number] Univers 09:00:00 09:00:00 SENDIL ity [facility] 2020-05-28 2020-05-28 Outpatient R NATASHA [facility] [id number] Univers 10:00:00 10:00:00 BEBA ity o f [facility] 2020-05-24 2020-05-24 Outpatient R NI DISLA [facility] [id number] Univers 10:00:00 10:00:00 ity [facility] 2020-05-19 2020-05-19 Outpatient R OSITO HITCHCOCK [facility] [id number] Univers 16:30:00 16:30:00 ity [facility] 2020-05-17 2020-05-17 Outpatient R DARRION WYATT [facility] [id number] Univers 13:00:00 13:00:00 DARRION WYATT chino [facility] 2020-05-16 2020-05-16 Outpatient R CRISTINA [facility] [id number] Univers 16:00:00 16:00:00 WONDIFUL ity o f [facility] 2020-05-08 2020-05-08 Emergency X VIRGIE [facility] ERT [id number] Univers 10:24:00 13:03:00 OLAMIDE chino [facility] 2020-05-03 2020-05-03 Outpatient R CRISTINA, [facility] [id number] Univers 15:00:00 15:00:00 WONDIFUL ity o f [facility] 2020-04-30 2020-05-01 Outpatient X KAVYA [facility] JOSÉ MANUEL [id number] Univers 11:14:00 15:50:00 RODRIGUEZ [facility] 2020-04-30 2020-04-30 Outpatient R JASPAL [facility] [id number] Univers 10:20:00 10:20:00 ROSALES [facility] 2020-04-30 2020-04-30 Outpatient R JASPAL [facility] [id number] Univers 10:15:00 10:15:00 ROSALES [facility] 2020-04-28 2020-04-28 Outpatient R OSITO HITCHCOCK [facility] [id number] Univers 14:00:00 14:00:00 [facility] 2020-04-25 2020-04-25 Outpatient R CRISTINA, [facility] [id number] Univers 16:15:00 16:15:00 WONDIFUL ity o f [facility] 2020-04-18 2020-04-18 Outpatient R OSITO HITCHCOCK [facility] [id number] Univers 10:00:00 10:00:00 [facility] 2020-04-15 2020-04-15 Outpatient R PONCE [facility] [id number] Univers 10:30:00 10:30:00 SENDIL [facility] 2020-04-12 2020-04-13 Outpatient X MARICRUZ DELUNA [facility] [id number] Univers 13:38:00 16:25:00 [facility] 2020-03-17 2020-03-17 Outpatient R DEYVI [facility] [id number] Univers 16:15:00 16:15:00 [facility] 2020-03-04 2020-03-04 Refill Coretta [facility] [id number] 00:00:00 00:00:00 MULTISPEC [id number] IALTY [id number] [place] [id number] [facility] 2020-02-25 2020-02-25 Outpatient R CORETTA OSITO [facility] [id number] Univers 16:00:00 16:00:00 [facility] 2020 2020 Outpatient R DEYVI [facility] [id number] Univers 14:00:00 14:00:00 [facility] 2020-02-08 2020-02-08 Outpatient R PRASANNA VARGAS [facility] [id number] Univers 10:30:00 10:30:00 [facility] 2020-02-04 2020-02-04 Outpatient R CORETTA OSITO [facility] [id number] Univers 13:30:00 13:30:00 [facility] 2020-01-23 2020-01-23 Outpatient R [facility] [id number] Univers 10:15:00 10:15:00 [facility] 2020-01-21 2020-01-21 Outpatient R CORETTA OSITO [facility] [id number] Univers 13:00:00 13:00:00 [facility] 2020-01-14 2020-01-14 Outpatient R CORETTA OSITO [facility] [id number] Univers 16:00:00 16:00:00 [facility] 2020-01-05 2020-01-05 Outpatient R PRASANNA VARGAS [facility] [id number] Univers 13:45:00 13:45:00 [facility] 2019-12-03 2019-12-03 Outpatient R AKINSIPE, [facility] [id number] Univers 10:30:00 10:30:00 CRICKET ity o f [facility] 2019-11-27 2019-11-27 Outpatient R MANUELAPHAN, [facility] [id number] Univers 11:00:00 11:00:00 [facility] 2019-11-25 2019-11-25 Outpatient R VANAPHAN, [facility] [id number] Univers 08:00:00 08:00:00 [facility] 2019-11-18 2019-11-18 Outpatient R VANAPHAN, [facility] [id number] Univers 10:00:00 10:00:00 [facility] 2019-09-02 2019-09-02 Outpatient R AKINSIPE, [facility] [id number] Univers 11:00:00 11:00:00 CRICKET ity o f [facility] 2019-08-14 2019-08-14 Outpatient R MANUELAPHAN, [facility] [id number] Univers 10:15:00 10:15:00 [facility] 2019-08-13 2019-08-13 Outpatient R AKINSIPE, [facility] [id number] Univers 11:00:00 11:00:00 CRICKET ity o f [facility] 2019-08-12 2019-08-12 Outpatient R [facility] [id number] Univers 09:00:00 09:00:00 [facility] 2019-07-20 2019-07-20 Outpatient PRASANNA HERRERA [facility] CHRIS [id number] Univers 16:06:00 16:06:00 [facility] 2019-07-20 2019-07-20 Outpatient R AKINSIPE, [facility] [id number] Univers 08:15:00 08:15:00 CRICKET ity o f [facility] 2019-07-13 2019-07-13 Outpatient R AKINSIPE, [facility] [id number] Univers 08:00:00 08:00:00 CRICKET ity o f [facility] 2019-07-12 2019-07-12 Outpatient PRASANNA HERRERA [facility] [id number] Univers 13:39:00 13:39:00 [facility] 2019-07-06 2019-07-06 Outpatient R BRANDON, [facility] [id number] Univers 13:00:00 13:00:00 CRICKET lechuga o susan [facility] 2019-06-13 2019-06-13 Emergency X MARGARITA [facility] ERT [id number] Univers 10:40:46 12:35:00 SARAHI [facility] 2019-05-13 2019-05-14 Outpatient P PRASANNA VARGAS [facility] [id number] Univers 23:07:00 09:15:00 [facility] Results Test Description Test Time Test Comments Results Result Comments Source POCT MOLECULAR STREP 2022-06-23 16:14:38 Test Item Value Reference Range Interpretation Comme nts POCT Molecular Strep (test code = 66221-3) Negative Negative Lab Interpretation (test code = 40916-4) [id number][facility]2022-05-05 19:35:37 Test Item Value Reference Range Interpretation Comments NA (test code = 139 mmol/L 135-145 5036282658) K (test code = 4.4 mmol/L 3.5-5.0 4169903032) CL (test code = 104 mmol/L 98-108 2412311785) CO2 TOTAL (test code = 22 mmol/L 23-31 L 5271856314) AGAP (test code = 2-16 7669101901) BUN (test code = 11 mg/dL 7-23 9307439559) GLUCOSE (test code = 95 mg/dL 70-110 8964948697) CREATININE (test code = 0.71 mg/dL 0.50-1.04 4117666218) TOTAL BILI (test code = 0.4 mg/dL 0.1-1.5 9274665495) CALCIUM (test code = 9.1 mg/dL 8.6-10.6 2781031770) T PROTEIN (test code = 7.9 g/dL 6.3-8.2 2452320936) ALBUMIN (test code = 4.7 g/dL 3.5-5.0 2005086497) ALK PHOS (test code = 114 U/L 34-122 4279229732) ALTv (test code = 21 U/L 5-35 1742-6) AST(SGOT) (test code = 21 U/L 13-40 4872618482) eGFR (test code = mL/min/1.73m2 1410880215) WESLEY (test code = WESLEY) Association of [...] tests). Lab Interpretation Abnormal (test code = 45020-0) [facility] WITH [id number] 19:25:37 Test Item Value Reference Range Interpretation Comments WBC (test code = See_Comment [Automated 4271-2) message] The sy stem which generated this result transmitted reference range : 4.30 - 11.10 10*3/?L. The reference range was not used to interpret this result as normal/abnormal . RBC (test code = See_Comment [Automated 050-8) message] The sy stem which generated this [...] RDW-SD (test code = 41.7 fL 39.0-49.9 79112-1) RDW-CV (test code = 12.7 % 12.0-15.5 788-0) PLT (test code = See_Comment H [Automated 777-3) message] The sy stem which generated this result transmitted reference range : 166 - 358 10*3/ ?L. The reference r david was not used to interpret this result as normal/abnormal . MPV (test code = 8.8 fL 9.5-12.9 L 18325-5) NRBC/100 WBC (test See_Comment [Automat ed code = 6448281964) message] The system which generated this result transmitted reference range : 0.0 - 10.0 /100 WBCs. The refer ence range was not u sed to interpret th is result as normal/abnormal . NRBC x10^3 (test code See_Comment [Auto mated = 5714908103) message] The s ystem which generated this result transmitted reference range : 10*3/?L. The reference range was not used to interpret this result as normal/abnormal . GRAN MAT (NEUT) % 56.1 % (test code = 770-8) IMM GRAN % (test code 0.40 % = 7414896839) LYMPH % (test code = 29.9 % 736-9) MONO % (test code = 5.4 % 5905-5) EOS % (test code = 7.8 % 713-8) BASO % (test code = 0.4 % 706-2) GRAN MAT x10^3(ANC) 3.75 10*3/uL 1.88-7.09 (test code = 8496840969) IMM GRAN x10^3 (test 0.03 10*3/uL 0.00-0.06 code = 0974760311) LYMPH x10^3 (test code 2.00 10*3/uL 1.32-3.29 = 731-0) MONO x10^3 (test code 0.36 10*3/uL 0.33-0.92 = 742-7) EOS x10^3 (test code = 0.52 10*3/uL 0.03-0.39 H 711-2) BASO x10^3 (test code 0.03 10*3/uL 0.01-0.07 = 704-7) Lab Interpretation Abnormal (test code = 30767-9) [id number] 19:00:00 Test Item Value Reference Range Interpretation Comments POCT PREG (test code = 1605) negative On board controls acceptable with present C Line (test code = 3574) POCT PREG LOT # (test code = 3575) [id number] POCT PREG TEST DATE (test 08-11-2023 code = 3576) Lab Interpretation (test code = Normal 78343-5) [facility] [id number] 15:21:11 Test Item Value Reference Range Interpretation Comments WBC (test code = See_Comment [Automated 8766-2) message] The sy stem which generated this result transmitted reference range : 4.30 - 11.10 10*3/?L. The reference range was not used to interpret this result as normal/abnormal . RBC (test code = See_Comment [Automated 496-8) message] The sy stem which generated this [...] RDW-SD (test code = 42.6 fL 39.0-49.9 08887-5) RDW-CV (test code = 12.9 % 12.0-15.5 788-0) PLT (test code = See_Comment H [Automated 777-3) message] The sy stem which generated this result transmitted reference range : 166 - 358 10*3/ ?L. The reference r david was not used to interpret this result as normal/abnormal . MPV (test code = 9.1 fL 9.5-12.9 L 46141-4) NRBC/100 WBC (test See_Comment [Automat ed code = 5740288232) message] The system which generated this result transmitted reference range : 0.0 - 10.0 /100 WBCs. The refer ence range was not u sed to interpret th is result as normal/abnormal . NRBC x10^3 (test code See_Comment [Auto mated = 3802143204) message] The s ystem which generated this result transmitted reference range : 10*3/?L. The reference range was not used to interpret this result as normal/abnormal . GRAN MAT (NEUT) % 56.8 % (test code = 770-8) IMM GRAN % (test code 0.30 % = 0157171094) LYMPH % (test code = 29.5 % 736-9) MONO % (test code = 4.3 % 5905-5) EOS % (test code = 8.3 % 713-8) BASO % (test code = 0.8 % 706-2) GRAN MAT x10^3(ANC) 3.57 10*3/uL 1.88-7.09 (test code = 3622611633) IMM GRAN x10^3 (test 0.00-0.06 code = 6991805341) LYMPH x10^3 (test code 1.85 10*3/uL 1.32-3.29 = 731-0) MONO x10^3 (test code 0.27 10*3/uL 0.33-0.92 L = 742-7) EOS x10^3 (test code = 0.52 10*3/uL 0.03-0.39 H 711-2) BASO x10^3 (test code 0.05 10*3/uL 0.01-0.07 = 704-7) Lab Interpretation Abnormal (test code = 49686-4) [facility]. METABOLIC PANEL ([id number])2022-04-26 15:12:13 Test Item Value Reference Range Interpretation Comments NA (test code = 141 mmol/L 135-145 5355441295) K (test code = 3.4 mmol/L 3.5-5.0 L 3184030533) CL (test code = 104 mmol/L 98-108 7208449834) CO2 TOTAL (test code = 23 mmol/L 23-31 1445804577) AGAP (test code = 2-16 3551312402) BUN (test code = 9 mg/dL 7-23 6320008786) GLUCOSE (test code = 101 mg/dL 70-110 9560713235) CREATININE (test code = 0.82 mg/dL 0.50-1.04 6067377193) TOTAL BILI (test code = 0.7 mg/dL 0.1-1.6 7132959490) CALCIUM (test code = 9.3 mg/dL 8.6-10.6 8730541844) T PROTEIN (test code = 8.1 g/dL 6.3-8.2 1502242288) ALBUMIN (test code = 4.7 g/dL 3.5-5.0 7288995572) ALK PHOS (test code = 108 U/L 34-122 0566863306) ALTv (test code = 24 U/L 5-35 1742-6) AST(SGOT) (test code = 49 U/L 13-40 H 8157749079) eGFR (test code = mL/min/1.73m2 3032533259) WESLEY (test code = WESLEY) Association of [...] tests). Lab Interpretation Abnormal (test code = 38483-1) [facility] [id number] 14:45:00 Test Item Value Reference Range Interpretation Comments POCT PREG (test code = 1605) negative On board controls acceptable with present C Line (test code = 3574) POCT PREG LOT # (test code = 3575) [id number] POCT PREG TEST DATE (test 08/11/2023 code = 3576) Lab Interpretation (test code = Normal 43474-3) [facility] [id number] 01:22:00 Test Item Value Reference Range Interpretation Comments POCT PREG (test code = 1605) Negative On board controls acceptable with Present C Line (test code = 3574) POCT PREG LOT # (test code = 3575) [id number] POCT PREG TEST DATE (test 08-11-2023 code = 3576) Lab Interpretation (test code = Normal 66538-4) [facility] [place] [place] METABOLIC PANEL (NA, K, CL, CO2, GLUCOSE, BUN, CREATININE, CA)2022-04-07 23:01:10 Test Item Value Reference Range Interpretation Comments NA (test code = 138 mmol/L 135-145 7232549510) K (test code = 4.3 mmol/L 3.5-5.0 5457693214) CL (test code = 107 mmol/L 98-108 6484980488) CO2 TOTAL (test code = 20 mmol/L 23-31 L 8947311275) AGAP (test code = 2-16 4263621269) BUN (test code = 9 mg/dL 7-23 5342573482) GLUCOSE (test code = 204 mg/dL 70-110 H 7655605109) CREATININE (test code = 0.74 mg/dL 0.50-1.04 1547269683) CALCIUM (test code = 9.1 mg/dL 8.6-10.6 9263975544) eGFR (test code = mL/min/1.73m2 9569063651) WESLEY (test code = WESLEY) Association of [...] tests). Lab Interpretation Abnormal (test code = 91738-0) [facility] WITH [id number] 22:57:34 Test Item Value Reference Range Interpretation [...] RDW-SD (test code = 42.9 fL 39.0-49.9 23821-4) RDW-CV (test code = 13.4 % 12.0-15.5 788-0) PLT (test code = See_Comment H [Automated 777-3) message] The sy stem which generated this result transmitted reference range : 166 - 358 10*3/ ?L. The reference r david was not used to interpret this result as normal/abnormal . MPV (test code = 8.9 fL 9.5-12.9 L 94048-5) NRBC/100 WBC (test See_Comment [Automat ed code = 2530172523) message] The system which generated this result transmitted reference range : 0.0 - 10.0 /100 WBCs. The refer ence range was not u sed to interpret th is result as normal/abnormal . NRBC x10^3 (test code See_Comment [Auto mated = 0525922369) message] The s ystem which generated this result transmitted reference range : 10*3/?L. The reference range was not used to interpret this result as normal/abnormal . GRAN MAT (NEUT) % 88.7 % (test code = 770-8) IMM GRAN % (test code 0.70 % = 8660103017) LYMPH % (test code = 9.4 % 736-9) MONO % (test code = 0.9 % 5905-5) EOS % (test code = 0.1 % 713-8) BASO % (test code = 0.2 % 706-2) GRAN MAT x10^3(ANC) 7.81 10*3/uL 1.88-7.09 H (test code = 7778377057) IMM GRAN x10^3 (test 0.06 10*3/uL 0.00-0.06 code = 3082013058) LYMPH x10^3 (test code 0.83 10*3/uL 1.32-3.29 L = 731-0) MONO x10^3 (test code 0.08 10*3/uL 0.33-0.92 L = 742-7) EOS x10^3 (test code = 0.03-0.39 L 711-2) BASO x10^3 (test code 0.01-0.07 = 704-7) Lab Interpretation Abnormal (test code = 23236-2) [facility] [id number] 14:07:00 Test Item Value Reference Range Interpretation Comments POCT PREG (test code = 1605) negative On board controls acceptable with present C Line (test code = 3574) POCT PREG LOT # (test code = 3575) [id number] POCT PREG TEST DATE (test 08/11/2023 code = 3576) Lab Interpretation (test code = Normal 20349-0) [facility] [id number] 13:52:00 Test Item Value Reference Range Interpretation Comments POCT PREG (test code = 1605) negative On board controls acceptable with C present Line (test code = 3574) Lab Interpretation (test code = Normal 65177-3) [facility] [id number] 14:59:00 Test Item Value Reference Range Interpretation Comments POCT PREG (test code = 1605) negative On board controls acceptable with yes C Line (test code = 3574) POCT PREG LOT # (test code = 3575) [id number] POCT PREG TEST DATE (test 07/11/2023 code = 3576) Lab Interpretation (test code = Normal 66715-6) [facility]. METABOLIC PANEL (17860)2022 17:51:43 Test Item Value Reference Range Interpretation Comments NA (test code = 139 mmol/L 135-145 3682577229) K (test code = 4.1 mmol/L 3.5-5 3282331702) CL (test code = 104 mmol/L 98-108 9118140468) CO2 TOTAL (test code = 22 mmol/L 23-31 L 5446878067) AGAP (test code = 2-16 1050406002) BUN (test code = 7 mg/dL 7-23 5658829505) GLUCOSE (test code = 114 mg/dL 70-110 H 8600323292) CREATININE (test code = 0.69 mg/dL 0.5-1.04 0365121796) TOTAL BILI (test code = 0.4 mg/dL 0.1-1.4 1592682027) CALCIUM (test code = 9.7 mg/dL 8.6-10.6 1485400547) T PROTEIN (test code = 7.2 g/dL 6.3-8.2 0438267888) ALBUMIN (test code = 4.6 g/dL 3.5-5 0777015827) ALK PHOS (test code = 65 U/L 34-122 1965012319) ALTv (test code = 15 U/L 5-35 1742-6) AST(SGOT) (test code = 19 U/L 13-40 6137246753) eGFR (test code = mL/min/1.73m2 0011071976) WESLEY (test code = WESLEY) Association of [...] tests). Lab Interpretation Abnormal (test code = 61419-2) [facility] WITH [id number] 17:40:24 Test Item Value Reference Range Interpretation Comments WBC (test code = See_Comment [Automated 5368-2) message] The sy stem which generated this result transmitted reference range : 4.30 - 11.10 10*3/?L. The reference range was not used to interpret this result as normal/abnormal . RBC (test code = See_Comment [Automated 008-8) message] The sy stem which generated this [...] RDW-SD (test code = 43.1 fL 39-49.9 61337-9) RDW-CV (test code = 13.2 % 12-15.5 788-0) PLT (test code = See_Comment [Automated 117-3) message] The sy stem which generated this result transmitted reference range : 166 - 358 10*3/ ?L. The reference r david was not used to interpret this result as normal/abnormal . MPV (test code = 9.5 fL 9.5-12.9 09264-0) NRBC/100 WBC (test See_Comment [Automat ed code = 8809956661) message] The system which generated this result transmitted reference range : 0.0 - 10.0 /100 WBCs. The refer ence range was not u sed to interpret th is result as normal/abnormal . NRBC x10^3 (test code See_Comment [Auto mated = 3213154337) message] The s ystem which generated this result transmitted reference range : 10*3/?L. The reference range was not used to interpret this result as normal/abnormal . GRAN MAT (NEUT) % 57.8 % (test code = 770-8) IMM GRAN % (test code 0.20 % = 8454707594) LYMPH % (test code = 30.8 % 736-9) MONO % (test code = 5.1 % 5905-5) EOS % (test code = 5.6 % 713-8) BASO % (test code = 0.5 % 706-2) GRAN MAT x10^3(ANC) 3.61 10*3/uL 1.88-7.09 (test code = 7944933220) IMM GRAN x10^3 (test 0-0.06 code = 5827523478) LYMPH x10^3 (test code 1.92 10*3/uL 1.32-3.29 = 731-0) MONO x10^3 (test code 0.32 10*3/uL 0.33-0.92 L = 742-7) EOS x10^3 (test code = 0.35 10*3/uL 0.03-0.39 711-2) BASO x10^3 (test code 0.03 10*3/uL 0.01-0.07 = 704-7) Lab Interpretation Abnormal (test code = 76107-0) [facility] [id number] 17:27:00 Test Item Value Reference Range Interpretation Comments POCT PREG (test code = 1605) negative On board controls acceptable with present C Line (test code = 3574) POCT PREG LOT # (test code = 3575) [id number] POCT PREG TEST DATE (test code = 3576) Lab Interpretation (test code = Normal 02898-7) [facility] 12:45:21 Test Item Value Reference Range Interpretation Comments LIPASE (test code = 3290048710) 41 U/L 0-220 Lab Interpretation (test code = Normal 02478-1) [facility] [id number] 10:57:00 Test Item Value Reference Range Interpretation Comments POCT PREG (test code = 1605) Negative On board controls acceptable with Present C Line (test code = 3574) POCT PREG LOT # (test code = 3575) [id number] POCT PREG TEST DATE (test 03/12/2023 code = 3576) Lab Interpretation (test code = Normal 09551-0) [facility] (NA, K, CL, CO2, GLUCOSE, BUN, CREATININE, CA)2022-01-18 10:56:51 Test Item Value Reference Range Interpretation Comments NA (test code = 137 mmol/L 135-145 9889056003) K (test code = 4.6 mmol/L 3.5-5 Slight 2740681517) hemolysis CL (test code = 108 mmol/L 98-108 7439602584) CO2 TOTAL (test code 22 mmol/L 23-31 L = 3145918227) AGAP (test code = 2-16 6578344201) BUN (test code = 11 mg/dL 7-23 Slight 5843116842) hemolysis GLUCOSE (test code = 83 mg/dL 70-110 6744289829) CREATININE (test code 0.68 mg/dL 0.5-1.04 = 1098489751) CALCIUM (test code = 8.8 mg/dL 8.6-10.6 1089615274) eGFR (test code = mL/min/1.73m2 0481272215) WESLEY (test code = WESLEY) Association of [...] tests). Lab Interpretation Abnormal (test code = 69837-7) [facility]31868[facility] (ALB,T.PRO,BILI T,BU/BC,ALT,AST,ALK PHOS)2022-01-18 10:56:51 Test Item Value Reference Range Interpretation Comments TOTAL BILI (test code = 2792579486) 0.6 mg/dL 0.1-1.1 BILI UNCON (test code = 9939276217) 0.1 mg/dL 0.1-1.1 BILI CONJ (test code = 7971879907) 0.0 mg/dL 0-0.3 T PROTEIN (test code = 6836179445) 8.6 g/dL 6.3-8.2 H ALBUMIN (test code = 9418349238) 5.1 g/dL 3.5-5 H ALK PHOS (test code = 4379689612) 79 U/L 34-122 ALTv (test code = 1742-6) 117 U/L 5-35 H AST(SGOT) (test code = 3233677080) 163 U/L 13-40 H Lab Interpretation (test code = Abnormal 12823-1) [id number] 10:54:25 Test Item Value Reference Range Interpretation Comments PREG SERUM (test code Negative = 7471647464) WESLEY (test code = WESLEY) Less than 10 IU/L. ?If low titer or ectopic is suspected, resubmit specimen in 48-72 hours. [facility] [id number] 10:40:49 Test Item Value Reference Range Interpretation Comments WBC (test code = See_Comment [Automated 0190-2) message] The sy stem which generated this result transmitted reference range : 4.30 - 11.10 10*3/?L. The reference range was not used to interpret this result as normal/abnormal . RBC (test code = See_Comment [Automated 859-8) message] The sy stem which generated this [...] RDW-SD (test code = 45.3 fL 39-49.9 72810-5) RDW-CV (test code = 14.5 % 12-15.5 788-0) PLT (test code = See_Comment [Automated 777-3) message] The sy stem which generated this result transmitted reference range : 166 - 358 10*3/ ?L. The reference r david was not used to interpret this result as normal/abnormal . MPV (test code = 9.5 fL 9.5-12.9 07244-3) NRBC/100 WBC (test See_Comment [Automat ed code = 9053935036) message] The system which generated this result transmitted reference range : 0.0 - 10.0 /100 WBCs. The refer ence range was not u sed to interpret th is result as normal/abnormal . NRBC x10^3 (test code See_Comment [Auto mated = 1030928231) message] The s ystem which generated this result transmitted reference range : 10*3/?L. The reference range was not used to interpret this result as normal/abnormal . GRAN MAT (NEUT) % 47.6 % (test code = 770-8) IMM GRAN % (test code 0.60 % = 2729176975) LYMPH % (test code = 39.9 % 736-9) MONO % (test code = 5.9 % 5905-5) EOS % (test code = 5.3 % 713-8) BASO % (test code = 0.7 % 706-2) GRAN MAT x10^3(ANC) 4.45 10*3/uL 1.88-7.09 (test code = 3437659963) IMM GRAN x10^3 (test 0.06 10*3/uL 0-0.06 code = 2534346992) LYMPH x10^3 (test code 3.74 10*3/uL 1.32-3.29 H = 731-0) MONO x10^3 (test code 0.55 10*3/uL 0.33-0.92 = 742-7) EOS x10^3 (test code = 0.50 10*3/uL 0.03-0.39 H 711-2) BASO x10^3 (test code 0.07 10*3/uL 0.01-0.07 = 704-7) Lab Interpretation Abnormal (test code = 62619-0) [facility] [id number] 18:31:00 Test Item Value Reference Range Interpretation Comments POCT PREG (test code = 1605) Negative On board controls acceptable with C Yes Line (test code = 3574) POCT PREG LOT # (test code = 3575) POCT PREG TEST DATE (test code = 3576) [facility] URINALYSIS W/O SPECIFIC [id number] 18:31:00 Test Item Value Reference Range Interpretation Comments POCT PH U (test code = 3254) 5 mg/dl 5-8 POCT U LEUK EST (test code = Neg Negative - Negative 3263) POCT U NIT (test code = 3262) Neg Negative - Negative POCT U PROT (test code = 1979) Trace Negative - Negative POCT U GLU (test code = 8276) Neg Negative - Negative POCT U KETONE (test code = 5818) Neg Negative - Negative POCT U BLD (test code = 7857) Trace Negative - Negative [facility]"
[2022-07-02 07:41] LABS: Urine Blood Trace-intact (Negative); Urine Glucose Negative (Negative); Urine Protein 1+ (Negative); Urine pH 7.5 (5.0-7.0)
[2022-07-02] MEDS ORDERED: FAMOTIDINE 20 MG/2 ML VIAL IV ONE (07:55)
[2022-07-02] MEDS ORDERED: NA CHLORIDE 0.9% 1,000 ML ONE (07:55)
[2022-07-02] MEDS ORDERED: ONDANSETRON 4 MG (ODT) TAB ONE (07:56)
[2022-07-02 08:01] LABS: Absolute Lymphocytes (CBC) 1.7 K/uL (0.7-4.9); Hematocrit 41.3 % (36.0-45.0); Lymphocytes % 26.5 % (15.3-44.8); MCV 85.9 fL (80-100); MPV 7.1 fL (7.6-11.3); RBC Red Blood Cell Count 4.81 M/uL (3.86-4.86)
[2022-07-02 08:16] LABS: Albumin 4.1 g/dL (3.4-5.0); Bilirubin Total 0.7 mg/dL (0.2-1.0)
[2022-07-02 08:17] LABS: Potassium 3.8 mmol/L (3.5-5.1)
[2022-07-02] MEDS ORDERED: MORPHINE 4 MG/ML SYR ONE (08:49)
[2022-07-02] MEDS ORDERED: ONDANSETRON 4 MG/2 ML VIAL ONE ×2 (08:49→10:09)
--- NOTE | 2022-07-02 08:55 | RAD REPORT ---
EXAM DESCRIPTION: CT - Abdomen Pelvis W Contrast - 07/02/2022 8:39 am CLINICAL HISTORY: Abdominal pain COMPARISON: May 2022 TECHNIQUE: Computed axial tomography of the abdomen pelvis was obtained. 90 cc Isovue-300 was admini stered intravenously. Oral contrast was not requested which limits evaluation of bowel and appendix All CT scans are performed using dose optimization technique as appropriate and may include automated exposure control or mA/KV adjustment according to patient size. FINDINGS: Small bilateral renal calculi. No hydronephrosis The liver, spleen, pancreas and adrenals are unremarkable Normal appendix No evidence of diverticulitis. Small umbilical hernia contains fat. 2 centimeter left ovarian cyst without significant free fluid IMPRESSION: 2 centimeter left ovarian cyst without significant free fluid Small nonobstructing renal calculi
[2022-07-02] MEDS ORDERED: FENTANYL CITR 100 MCG/2 ML ONE (10:09)
--- NOTE | 2022-07-02 10:37 | EDPHYS ---
Physician Documentation [facility] Name: Natanael Dyson Age: 27 yrs Sex: Female : 1995 Arrival Date: 07/02/2022 Time: 06:55 Bed 5 Private MD: ROMAN Physician Justin Estrella HPI: 07/02 09:42 This 27 yrs old Female presents to ER via Ambulatory with complaints of rudolph Abdominal Pain, Nausea/Vomiting. 09:42 The patient presents to the emergency department with nausea, vomiting, abdominal pain, rudolph of the right upper quadrant, left upper quadrant, right lower quadrant and left lower quadrant. Onset: The symptoms/episode began/occurred 2 day(s) ago. 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 - Social history:: Smoking status: Patient reports the use of cigarette tobacco products, Patient/guardian denies using alcohol. ROS: 09:43 Constitutional: Negative for fever, chills, and weight loss, Eyes: Negative for injury, rudolph pain, redness, and discharge, ENT: Negative for injury, pain, and discharge, Neck: Negative for injury, pain, and swelling, Cardiovascular: Negative for chest pain, palpitations, and edema, Respiratory: Negative for shortness of breath, cough, wheezing, and pleuritic chest pain, Back: Negative for injury and pain, : Negative for injury, bleeding, discharge, and swelling, MS/Extremity: Negative for injury and deformity, Skin: Negative for injury, rash, and discoloration, Neuro: Negative for headache, weakness, numbness, tingling, and seizure, Psych: Negative for depression, anxiety, suicide ideation, homicidal ideation, and hallucinations, Allergy/Immunology: Negative for hives, rash, and allergies, Endocrine: Negative for neck swelling, polydipsia, polyuria, polyphagia, and marked weight changes, Hematologic/Lymphatic: Negative for swollen nodes, abnormal bleeding, and unusual bruising. 09:43 Abdomen/GI: Positive for abdominal pain, nausea and vomiting, of the epigastric area, right upper quadrant and left upper quadrant. Exam: 09:43 Constitutional: This is a well developed, well nourished patient who is awake, alert, rudolph and in no acute distress. Head/Face: Normocephalic, atraumatic. Eyes: Pupils equal round and reactive to light, extra-ocular motions intact. Lids and lashes normal. Conjunctiva and sclera are non-icteric and not injected. Cornea within normal limits. Periorbital areas with no swelling, redness, or edema. ENT: Nares patent. No nasal discharge, no septal abnormalities noted. Tympanic membranes are normal and external auditory canals are clear. Oropharynx with no redness, swelling, or masses, exudates, or evidence of obstruction, uvula midline. Mucous membranes moist. Neck: Trachea midline, no thyromegaly or masses palpated, and no cervical lymphadenopathy. Supple, full range of motion without nuchal rigidity, or vertebral point tenderness. No Meningismus. Chest/axilla: Normal chest wall appearance and motion. Nontender with no deformity. No lesions are appreciated. Cardiovascular: Regular rate and rhythm with a normal S1 and S2. No gallops, murmurs, or rubs. Normal PMI, no JVD. No pulse deficits. Respiratory: Lungs have equal breath sounds bilaterally, clear to auscultation and percussion. No rales, rhonchi or wheezes noted. No increased work of breathing, no retractions or nasal flaring. Back: No spinal tenderness. No costovertebral tenderness. Full range of motion. Female : Normal external genitalia. Skin: Warm, dry with normal turgor. Normal color with no rashes, no lesions, and no evidence of cellulitis. MS/ Extremity: Pulses equal, no cyanosis. Neurovascular intact. Full, normal range of motion. Neuro: Awake and alert, GCS 15, oriented to person, place, time, and situation. Cranial nerves II-XII grossly intact. Motor strength 5/5 in all extremities. Sensory grossly intact. Cerebellar exam normal. Normal gait. Psych: Awake, alert, with orientation to person, place and time. Behavior, mood, and affect are within normal limits. 09:43 Abdomen/GI: Inspection: distension, that is mild, Bowel sounds: normal, Palpation: mild abdominal tenderness, in the epigastric area, right upper quadrant and left upper quadrant, Liver: no appreciated palpable abnormalities, Hernia: not appreciated. Vital Signs: 07:58 BP 122 / 89; Pulse 97; Resp 18; Temp 98.7; Pulse Ox 98% on R/A; Weight 63.5 kg; Height ld1 5 ft. 2 in. (157.48 cm); Pain 9/10; 08:54 BP 132 / 80; Pulse 82; Resp 16; Pulse Ox 100% ; bp 09:45 BP 125 / 78; Pulse 88; Resp 18; Pulse Ox 100% on R/A; Pain 8/10; ld1 10:21 BP 133 / 88; Pulse 88; Resp 18; Pulse Ox 98% on R/A; Pain 9/10; ld1 10:41 BP 122 / 79; Pulse 77; Resp 18; Pulse Ox 99% on R/A; Pain 4/10; ld1 07:58 Body Mass Index 25.61 (63.50 kg, 157.48 cm) ld1 MDM: 07:11 Patient medically screened. [facility] 09:44 Differential diagnosis: Nonspecific abd pain, gastritis, cholecystitis, pancreatitis, rudolph appendicitis, diverticulitis, viral gastroenteritis, gastroenteritis. Data reviewed: vital signs, nurses notes, lab test result(s), radiologic studies, CT scan, ultrasound. Consideration of Admission/Observation Escalation of care including admission/observation considered. Care significantly affected by the following chronic conditions: asthma. migraines, uti. 07/02 07:12 Order name: CBC with Diff [facility] 07/02 07:12 Order name: CMP [facility] 07/02 07:12 Order name: Lipase [facility] 07/02 07:41 Order name: Urine Dipstick-Ancillary; Complete Time: 07:42 EDAR 07/02 08:03 Order name: CBC with Automated Diff; Complete Time: 09:28 EDAR 07/02 08:13 Order name: Urine --Ancillary (enter results) 07/02 07:42 Order name: CT Abd/Pelvis - IV Contrast Only [facility] 07/02 08:17 Order name: Comprehensive Metabolic Panel; Complete Time: 09:28 EDAR 07/02 08:17 Order name: Lipase; Complete Time: 09:28 EDAR 07/02 08:37 Order name: Urine --Ancillary; Complete Time: 09:28 EDAR 07/02 08:55 Order name: CT; Complete Time: 09:28 EDMS 07/02 09:08 Order name: Strep ld1 07/02 09:35 Order name: Group A Streptococcus Rapid Sc; Complete Time: 09:54 EDMS 07/02 09:42 Order name: US Abdomen Limited [facility] 07/02 07:12 Order name: IV Saline Lock; Complete Time: 07:57 [facility] 07/02 07:12 Order name: Labs collected and sent; Complete Time: 07:57 [facility] 07/02 07:12 Order name: Urine Dipstick-Ancillary (obtain specimen); Complete Time: 07:41 [facility] 07/02 07:12 Order name: Urine Test (obtain specimen); Complete Time: 07:41 [facility] 07/02 10:51 Order name: EDAR Administered Medications: 07:57 Drug: NS 0.9% 1000 ml Route: IV; Rate: 1 bolus; Site: right forearm; ld1 10:49 Follow up: IV Status: Completed infusion; IV Intake: 1000ml bp 07:57 Drug: Pepcid (famotidine) 20 mg Route: IVP; Site: right forearm; ld1 10:49 Follow up: Response: No adverse reaction bp 07:57 Drug: Zofran (Ondansetron) 4 mg Route: IVP; Site: right forearm; ld1 10:49 Follow up: Response: No adverse reaction bp 10:21 Drug: fentaNYL (PF) 50 mcg Route: IVP; Site: right forearm; ld1 10:48 Follow up: Response: No adverse reaction bp 10:21 Drug: Zofran (Ondansetron) 4 mg Route: IVP; Site: right forearm; ld1 10:49 Follow up: Response: No adverse reaction bp Disposition Summary: 07/02/22 10:36 Discharge Ordered Location: Home rudolph Problem: new rudolph Symptoms: have improved rudolph Condition: Stable rudolph Diagnosis - Abdominal pain, unspecified rudolph - Vomiting rudolph - Other and unspecified ovarian cysts rudolph Followup: rudolph - With: Private Physician - When: 2 - 3 days - Reason: Recheck today's complaints, Continuance of care, Re-evaluation by your physician Followup: rudolph - With: Sandrita Colón MD - When: 2 - 3 days - Reason: Recheck today's complaints, Re-evaluation by your physician Followup: rudolph - With: Rome Win MD - When: 2 - 3 days - Reason: Recheck today's complaints, Re-evaluation by your physician Discharge Instructions: - Discharge Summary Sheet rudolph - Abdominal Pain, Adult rudolph - Vomiting, Adult rudolph - Ovarian Cyst rudolph - Ovarian Cyst, [id number] rudolph Forms: - Medication Reconciliation Form rudolph - Thank You Letter rudolph - Antibiotic Education rudolph - Prescription Opioid Use rudolph - Work release form ss Prescriptions: - Pepcid 20 mg Oral Tablet - take 1 tablet by ORAL route every 12 hours for 21 days; 42 tablet; Refills: 0, [facility] Product Selection Permitted - Zofran 4 mg Oral Tablet - take 1 tablet by ORAL route every 12 hours As needed; 20 tablet; Refills: 0, [facility] Product Selection Permitted - dicyclomine 20 mg Oral Tablet - take 1 tablet by ORAL route 4 times per day; 28 tablet; Refills: 0, Product rudolph Selection Permitted Signatures: Dispatcher [employer] Justin Pinto MD MD cha Smirch, Shelby, RN RN ss Kellie Hernandez RN RN ld1 Jayy Wooten RN
--- NOTE | 2022-07-02 10:37 | ER ---
Nurse's Notes [facility] Name: Natanael Dyson Age: 27 yrs Sex: Female : 1995 Arrival Date: 07/02/2022 Time: 06:55 Bed 5 Private MD: Diagnosis: Abdominal pain, unspecified;Vomiting;Other and unspecified ovarian cysts Presentation: 07/02 07:10 Chief complaint: Patient states: Abdominal pain X 3 days. Pt reports pain increasing ld1 this morning. C/O abdominal pain, N/V/. 07:10 Method Of Arrival: Ambulatory ld1 07:10 Coronavirus screen: At this time, the client does not indicate any symptoms associated ld1 with coronavirus-19. Ebola Screen: No symptoms or risks identified at this time. Initial Sepsis Screen: Does the patient meet any 2 criteria? No. Patient's initial sepsis screen is negative. Does the patient have a suspected source of infection? No. Patient's initial sepsis screen is negative. Risk Assessment: Do you want to hurt yourself or someone else? Patient reports no desire to harm self or others. Onset of symptoms was July 02, 2022. 07:10 Acuity: THIERNO 3 ld1 Triage Assessment: 07:10 General: Appears in no apparent distress. comfortable, Behavior is agitated, crying, ld1 fussy. Pain: Complains of pain in abdomen Pain does not radiate. Pain currently is 8 out of 10 on a pain scale. EENT: No signs and/or symptoms were reported regarding the EENT system. Neuro: Level of Consciousness is awake, alert, obeys commands, Oriented to person, place, time, situation. Cardiovascular: Capillary refill < 3 seconds Patient's skin is warm and dry. Respiratory: Airway is patent Respiratory effort is even, unlabored. GI: Abdomen is round non-distended, Reports lower abdominal pain, upper abdominal pain, nausea, vomiting. : No signs and/or symptoms were reported regarding the genitourinary system. Derm: No signs and/or symptoms reported regarding the dermatologic system. Musculoskeletal: No signs and/or symptoms reported regarding the musculoskeletal system. 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 - Social history:: Smoking status: Patient reports the use of cigarette tobacco products, Patient/guardian denies using alcohol. Screenin:58 [facility] ED Fall Risk Assessment (Adult) History of falling in the last 3 months, ld1 including since admission No falls in past 3 months (0 pts). Abuse screen: Denies threats or abuse. Denies injuries from another. Nutritional screening: No deficits noted. Tuberculosis screening: No symptoms or risk factors identified. Assessment: 07:58 General: Appears in no apparent distress. uncomfortable, Behavior is anxious, crying, ld1 fussy. Pain: Complains of pain in right upper quadrant and left upper quadrant Pain radiates to right lower quadrant Pain currently is 9 out of 10 on a pain scale. Quality of pain is described as. Neuro: Level of Consciousness is awake, alert, obeys commands, Oriented to person, place, time, situation, Appropriate for age. Cardiovascular: Capillary refill < 3 seconds Patient's skin is warm and dry. Respiratory: Airway is patent Respiratory effort is even, unlabored. GI: Abdomen is round non-distended, Bowel sounds present X 4 quads. Abd is soft Abdomen is tender to palpation X 4 quads. : No signs and/or symptoms were reported regarding the genitourinary system. EENT: No signs and/or symptoms were reported regarding the EENT system. Derm: No signs and/or symptoms reported regarding the dermatologic system. Musculoskeletal: No signs and/or symptoms reported regarding the musculoskeletal system. 08:55 Reassessment: PT RETURNED FROM CT. bp 09:45 Reassessment: pt continuously requesting pain medication - ERP notified. Patient states ld1 symptoms have not improved. 09:45 Reassessment: No changes from previously documented assessment. Patient and/or family ld1 updated on plan of care and expected duration. Pain level reassessed. Patient is alert, oriented x 3, equal unlabored respirations, skin warm/dry/pink. 10:41 Reassessment: Patient appears in no apparent distress at this time. Patient and/or ld1 family updated on plan of care and expected duration. Pain level reassessed. Patient is alert, oriented x 3, equal unlabored respirations, skin warm/dry/pink. Patient states symptoms have improved. 10:48 Reassessment: PT DC HOME AMBULATORY Patient denies pain at this time. bp Vital Signs: 07:58 BP 122 / 89; Pulse 97; Resp 18; Temp 98.7; Pulse Ox 98% on R/A; Weight 63.5 kg; Height ld1 5 ft. 2 in. (157.48 cm); Pain 9/10; 08:54 BP 132 / 80; Pulse 82; Resp 16; Pulse Ox 100% ; bp 09:45 BP 125 / 78; Pulse 88; Resp 18; Pulse Ox 100% on R/A; Pain 8/10; ld1 10:21 BP 133 / 88; Pulse 88; Resp 18; Pulse Ox 98% on R/A; Pain 9/10; ld1 10:41 BP 122 / 79; Pulse 77; Resp 18; Pulse Ox 99% on R/A; Pain 4/10; ld1 07:58 Body Mass Index 25.61 (63.50 kg, 157.48 cm) ld1 ED Course: 06:55 Patient arrived in ED. [email or web address] 07:11 Justin Estrella MD is Attending Physician. rudolph 07:19 Arm band placed on right wrist. ss 07:57 Inserted saline lock: 20 gauge in right forearm, using aseptic technique. Blood ld1 collected. 07:58 Patient has correct armband on for positive identification. Placed in gown. Bed in low ld1 position. Call light in reach. Side rails up X2. 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 Pulse ox on. NIBP on. Door closed. Noise minimized. Warm blanket given. 07:58 No provider procedures requiring assistance completed. ld1 09:01 Kellie Hernandez, ROSEY is Primary Nurse. ld1 09:10 Triage completed. ld1 10:36 Sandrita Colón MD is Referral Physician. rudolph 10:36 Rome Win MD is Referral Physician. rudolph 10:42 IV discontinued, intact, bleeding controlled, No redness/swelling at site. ld1 Administered Medications: 07:57 Drug: NS 0.9% 1000 ml Route: IV; Rate: 1 bolus; Site: right forearm; ld1 10:49 Follow up: IV Status: Completed infusion; IV Intake: 1000ml bp 07:57 Drug: Pepcid (famotidine) 20 mg Route: IVP; Site: right forearm; ld1 10:49 Follow up: Response: No adverse reaction bp 07:57 Drug: Zofran (Ondansetron) 4 mg Route: IVP; Site: right forearm; ld1 10:49 Follow up: Response: No adverse reaction bp 10:21 Drug: fentaNYL (PF) 50 mcg Route: IVP; Site: right forearm; ld1 10:48 Follow up: Response: No adverse reaction bp 10:21 Drug: Zofran (Ondansetron) 4 mg Route: IVP; Site: right forearm; ld1 10:49 Follow up: Response: No adverse reaction bp Medication: 07:58 VIS not applicable for this client. ld1 Intake: 10:49 IV: 1000ml; Total: 1000ml. bp Outcome: 10:36 Discharge ordered by . rudolph 10:41 Discharged to home ambulatory. ld1 10:41 Condition: stable 10:41 Discharge instructions given to patient, Instructed on discharge instructions, follow up and referral plans. medication usage, Demonstrated understanding of instructions, follow-up care, medications, Prescriptions given X 3. 11:00 Patient left the ED. ld1 Signatures: Justin Estrella MD MD cha Smirch, Shelby, RN RN ss Peltier, Brian, RN RN bp Dibbern, Lauren, RN RN ld1 Gisela Trujillo jj6
--- NOTE | 2022-07-02 10:50 | RAD REPORT ---
EXAM DESCRIPTION: US - Abdomen Exam Limited - 07/02/2022 10:17 am CLINICAL HISTORY: Abdominal pain. COMPARISON: 2019 FINDINGS: The gallbladder wall is not thickened. A gallstone is not seen. 2 millimeter gallbladder polyp The biliary tree is normal caliber. IMPRESSION: Unremarkable gallbladder ultrasound.
[2022-07-02 11:18] VITALS: TEMP 98.7
[2022-07-02 11:23] VITALS: BP 122/79; O2SAT 99
== END 2022-07-02 11:00 | disposition home or self-care (01) ==
LOC: ER 06:50
DX: R10.13 Epigastric pain (principal); R11.2 Nausea with vomiting, unspecified; N83.299 Other ovarian cyst, unspecified side; Z72.0 Tobacco use; Z88.8 Allergy status to other drugs, medicaments and biological substances
CPT/HCPCS: 96361; 87070; 85025; 36415; 81025; 87081; 81003; 83690; 80053; 74177; 76705; 96375; 96374; 99284; Q9967; Q0162; J3010; J7030; J2405 ×2

== ENCOUNTER 2022-10-23 08:13 | Emergency (ER) | payer OTHER ==
--- OUTSIDE RECORDS SUMMARY | 2022-10-23 08:39 | XMS REPORT | Continuity of Care Document ---
:1995 Author Organization [facility] t Address [address] [place] [address] [address] [place] [address] Care Team Providers Name Role Phone Jc FELIX, Lian Primary Care Physician PRASANNA VARGAS Attending Clinician Unavailable REJI DÍAZ Attending Clinician Unavailable Carina FELIX, Gurjit Attending Clinician CELINA FINNEY Attending Clinician Unavailable Ponce FELIX, Rad RauschHPilar Attending Clinician KASSANDRA PUGH Attending Clinician Unavailable KENNEDY WHITLEY Attending Clinician Unavailable Kennedy Butler Attending Clinician Doctor Unassigned, [place] Attending Clinician Unavailable MANJU NWEELL Attending Clinician Unavailable SandownManju Martinez Attending Clinician CARI KAUR Attending Clinician Unavailable Cari Silvestre Attending Clinician Unknown, Attending Attending Clinician Unavailable PAUL SAMAYOA Attending Clinician Unavailable Paul Hunt Attending Clinician LIAN GREENE Attending Clinician Unavailable BENNETT MILLER Attending Clinician Unavailable KARON NORTON Attending Clinician Unavailable Karon Rosario Attending Clinician ZION BRIDGES Attending Clinician Unavailable Zion Bridges DO Attending Clinician Darrion Wyatt MD Attending Clinician OLAMIDE GARVIN Attending Clinician Unavailable Virgie POSADAS, Olamide Mosqueda Attending Clinician KELLIE DUNCAN Attending Clinician Unavailable Kellie Duncan MD Attending Clinician Reji Díaz MD Attending Clinician ANNA GOULD Attending Clinician Unavailable Anna Gould DO Attending Clinician ANGELICA VIVEROS Attending Clinician Unavailable Felice TANDEM MILL STICKER, Shinjarad Attending Clinician DARRION WYATT Attending Clinician Unavailable DARRION WYATT Attending Clinician Unavailable VIJAY MARTINEZ Attending Clinician Unavailable Juan TANDEM MILL STICKER, Vijay Attending Clinician MAGGIE HAMILTON Attending Clinician Unavailable Maggie Hamilton DO Attending Clinician Kendal Zamudio LVN Attending Clinician Unavailable Suzette FELIX, Ade Chen Attending Clinician CRICKET YANEZ Attending Clinician Unavailable [...] Clinician Unavailable Kaycee Soares Attending Clinician Akinsipe WHCNP, Cricket Lopez Attending Clinician [phone] Leslie Santacruz RN Attending Clinician Unavailable Oliver TANDEM MILL STICKER, Flaco Attending Clinician CELINA MIXON Attending Clinician Unavailable Provider, [facility] Attending Clinician Unavailable Melia Rodriguez MA Attending Clinician Unavailable Celina Mixon MD Attending Clinician DANIA PENNINGTON Attending Clinician Unavailable Daniel Dsouza MD Attending Clinician Dania Pennington MD Attending Clinician Hallie Wilkinson RN Attending Clinician Unavailable Judy MOREL, Adán S Attending Clinician ADÁN KIM Attending Clinician Unavailable Lab, Ang - Db Attending Clinician Unavailable PETRA RENO Attending Clinician Unavailable Jayy Diaz MD Attending Clinician JAYY DIAZ Attending Clinician Unavailable CLAUDETTE EVANS Attending Clinician Unavailable Skylar Rico Attending Clinician SKYLAR CALLOWAY Attending Clinician Unavailable JE ARANA Attending Clinician Unavailable Claudette Evans MD Attending Clinician Only, Filippo Shirley Test Attending Clinician Unavailable EbThony Julio Attending Clinician THONY JOHNSON Attending Clinician Unavailable SCOTT FLETCHER Attending Clinician Unavailable PINO HOFF Attending Clinician Unavailable ATANASOV, STRAHIL T Attending Clinician Unavailable ATANASOV, STRAHIL T Attending Clinician Unavailable AMELIA HAMMOND Attending Clinician Unavailable RAD SERRA Attending Clinician Unavailable KAYLEY SANDOVAL Attending Clinician Unavailable Kassandra Robledo RN Attending Clinician Unavailable Karin Alvarado Attending Clinician Dennis TANDEM MILL STICKER, Alissa Attending Clinician Anna Kim MD Attending Clinician PREET SHAY [...] Type Policy Number Effective Date Expiration Date [facility] [id number] 2019 MEDICAID 00:00:00 Problems Condition Condition Condition Status Onset Resolution Last Treating Co mments Source Name Details Category Date Date Treatment Clinician Date Influenza Influenza Disease Active 2021-05 Uni vers vaccine vaccine 0-18 ity of needed needed 00:00: [address] Myalgia Myalgia Disease Active 2021-05 Univers 0-18 ity of 00:00: [address] Acute Acute Disease Active 2021-05 Univers cough cough 0-18 ity of 00:00: [place] [facility] Hx of Hx of Disease Active 2021-05 Univers extrinsic extrinsic 0-18 ity of asthma asthma 00:00: [place] [facility] Breast Breast Disease Active Univers pain in pain in 12-17 ity of female female 00:00: [place] [facility] Anxiety Anxiety Disease Active Univers disorder, disorder, 8 it[place] unspecif[place] [facility] Generalize Generalize Disease Active U nivers d anxiety d anxiety 4-20 ity of disorder disorder 00:00: [place] [facility] Nephrolith Nephrolith Disease Active U nivers iasis iasis 4-20 ity of 00:00: [place] [facility] Paresthesi Paresthesi Disease Active U nivers a [...] it y of headache headache 00:00: [place] [facility] Family Family Disease Active Univers history of history of 3-07 it y of dementia dementia 00:00: Medical Branch B12 B12 Disease Active 2020-05 Univers deficiency deficiency 1-06 it y of (suboptima [place]suboptima [place] 00 Medical <400) <400) Branch Trouble in Trouble in Disease Active U nivers sleeping sleeping 4-27 ity of 00:00: Medical Branch Tachycardi Tachycardi Disease Active 2019-05 U nivers a a 2-01 ity of 00:00: Medical Branch Allergies, Adverse Reactions, Alerts Allergy Allergy Status Severity Reaction(s) Onset Inactive Treating Comm ents Source Name Type Date Date Clinician METOCLOP DRUG Active Low Anxiety Univers RAMIDE INGREDI 8-29 ity of 00:00: Medical Branch Metoclop Propensi Active Anxiety Unive rs ramide ty to 8-29 ity of adverse 00:00: [place] reaction 00 Medical s Branch Metoclop Propensi Active Anxiety Unive rs ramide ty to 8-29 ity of adverse 00:00: [place] reaction 00 Medical s to Branch drug Prochlor Propensi Active Hives Tolerates Uni vers [...] DRUG Active Low Rash 2019- Univers INGREDI - ity of 00:00: [place] 00 Medical Branch Metoclop Propensi Active Anxiety 2019-0 Patient Univ ers ramide ty to 3 [...] Comment [place] [facility] Exposure to 2022-08-26 2022-09-05 Not sure [facility] SARS-CoV-2 00:00:00 09:28:00 [facility] (event) Branch Alcohol intake 2022-07-31 2022-07-31 Ex-drinker University of 00:00:00 00:00:00 (finding) [facility] Tobacco use and 2021-12-12 2021-12-12 Smokeless tobacco Un iversity of exposure 00:00:00 00:00:00 non-user [place] [facility] [place] History SDOH 2019-02-06 2019-02-06 1 University o f Alcohol Frequency 00:00:00 00:00:00 [facility] Sex Assigned At [birth year] Universit y of 00:00:00 00:00:00 [facility] Smoking Status Start Date Stop Date Source Never smoked tobacco [facility] Medications Ordered Filled Start Stop Current Ordering Indication Dosage Frequency Signature Comments Components Source Medication Medication Date Date Medication? Clinician (SIG) Name Name mirtazapine Yes 15mg Take 1 Univ ers 15 mg 5-12 tablet by ity of tablet 00:00: mouth at [place] 00 bedtime. Medical Branch meloxicam Yes 15mg Take 1 Univer s 15 mg 5-09 tablet by ity of tablet 00:00: mouth in [place] 00 the Medical morning. Branch meloxicam 0 Yes 15mg Take 1 Univer s 15 mg 5-09 tablet by ity of tablet 00:00: mouth in [place] [address] the morning. Branch verapamil 0 Yes 120mg Take 1 Unive rs SR 120 mg 5-08 tablet by ity o f ER tablet 00:00: mouth in [facility] the morning. Branch verapamil 2022-0 Yes 120mg Take 1 Unive rs SR 120 mg 5-08 tablet by ity o f ER tablet 00:00: mouth in [place] [address] the morning. Branch OLANZapine 0 Yes 10mg Take 1 Unive rs 10 mg 4-27 tablet by ity of tablet 00:00: mouth in [place] [address] the morning. Branch cloNIDine Yes TAKE 1-2 Univ ers 0.1 mg 4-27 TABLETS BY ity of tablet 00:00: MOUTH AT [place] [address] BEDTIME Medical NEEDED FOR Branch SLEEP AND ANXIETY OLANZapine 0 Yes 10mg Take 1 Unive rs 10 mg 4-27 tablet by ity of tablet 00:00: mouth in [place] the morning. Branch cloNIDine Yes TAKE 1-2 Univ ers 0.1 mg 4-27 TABLETS BY ity of tablet 00:00: MOUTH AT [place] [address] BEDTIME Medical NEEDED FOR Branch SLEEP AND ANXIETY NaCl 0.9% 2022- No 1000mL at 999 Uni vers (NS) bolus 09-05- mL/hr, ity of infusion 18:15: 18:08 1,000 mL, [place] 1,000 mL 00 :00 IV Medical Infusion, Branch ONCE, 1 dose, On Sat09/05/22 at 1315, STAT acetaminoph 2022- No 650mg 650 mg, U nivers en 09-05 Oral, ity of (TYLENOL) 17:30: 17:24 ONCE, 1 [place] tablet 650 00 :00 dose, On Medic al mg Sat [place] 09/05/22 at 1230, [place] ondansetron 2022- No 4mg 4 mg, Slow Univers (ZOFRAN 09-05 IV Push, ity of (PF)) 17:15: 17:23 ONCE, 1 [place] injection 4 00 :00 dose, On Medi yessi mg Sat [place] 09/05/22 at 1215, [place] magnesium 2022- No 2g 2 g, IV Univ ers sulfate in 09-05 Piggyback, it y of water 2 16:15: 16:10 Administer [place] gram/50 mL 00 :00 over 30 Medica l (4 %) Minutes, Branch infusion 2 ONCE, 1 g dose, On Sat09/05/22 at 1115, Routine diphenhydrA 2022- No 25mg 25 mg, Uni vers MINE 09-05 Slow IV ity of (BENADRYL) 16:00: 16:01 Push, [place] injection 00 :00 ONCE, 1 Medical 25 mg dose, On Sat09/05/22 at 1100, STAT ketorolac 2022- No 30mg 30 mg, Unive rs (TORADOL) 09-05 Slow IV ity of injection 15:30: 14:38 Push, [place] 30 mg 00 :00 ONCE, 1 Medical dose, On Branch Sat09/05/22 at 1030, Routine NaCl 0.9% 2022- No 1000mL at 999 Uni vers (NS) bolus 09-05 mL/hr, ity of infusion 15:00: 17:12 1,000 mL, [place] 1,000 mL 00 :00 IV Medical Infusion, Branch ONCE, 1 dose, On Sat09/05/22 at 1000, STAT methylpredn 2022- No 125mg 125 mg, U nivers isolone sod 09-05 Intravenou i ty of succ 14:45: 14:35 s, ONCE, 1 [place] (SOLU-MEDRO 00 :00 dose, On Medi yessi L) Wed Branch injection 09/05/22 at 125 mg 0945, 2 mL butalbital- 2022- No 1{tbl} 1 tablet, Univers acetaminoph 09-05 Oral, ity of en-caff 14:00: 14:34 ONCE, 1 [place] (ESGIC) 00 :00 dose, On Medical 50-325-40 Wed Branch mg tablet 1 09/05/22 at tablet 0900, [place] diphenhydrA 2022- No 25mg 25 mg, Uni vers MINE 09-05 Slow IV ity of (BENADRYL) 14:00: 14:39 Push, [place] injection 00 :00 ONCE, 1 Medical 25 mg dose, On Branch 09/05/22 at 0900, STAT proMETHazin 2022-0 2022- No 12.5mg 12.5 mg, Univers e 09-05 IV ity of (PHENERGAN) 14:00: 14:40 [place]gy[place], [place] 12.5 mg in 00 :00 ONCE, 1 Medica l NaCl 0.9% dose, On Branch (NS) 50 mL Sat IV 09/05/22 at piggyback 0900, [place] carvediloL 2022-0 Yes [id number] 25mg Take 1 U nivers 25 mg 4-26 tablet by ity of tablet 00:00: mouth in [address] and 1 tablet in the evening. Take with meals. losartan 50 2022-0 Yes [id number] 50mg Take 1 Univers mg tablet 4-26 tablet by ity o f 00:00: mouth in [address] and 1 tablet in the evening. carvediloL 2022-0 Yes [id number] 25mg Take 1 U nivers 25 mg 4-26 tablet by ity of tablet 00:00: mouth in [address] and 1 tablet in the evening. Take with meals. losartan 50 2022-0 Yes [id number] 50mg Take 1 Univers mg tablet 4-26 tablet by ity o f 00:00: mouth in [address] and 1 tablet in the evening. carvediloL 3-0 Yes [id number] 25mg Take 1 U nivers 25 mg 4-26 tablet by ity of tablet 00:00: mouth in [address] and 1 tablet in the evening. Take with meals. losartan 50 2022-0 Yes [id number] 50mg Take 1 Univers mg tablet 4-26 tablet by ity o f 00:00: mouth in [address] and 1 tablet in the evening. carvediloL 3-0 Yes [id number] 25mg Take 1 U nivers 25 mg 4-26 tablet by ity of tablet 00:00: mouth in [address] and 1 tablet in the evening. Take with meals. losartan 50 2023-0 Yes [id number] 50mg Take 1 Univers mg tablet 4-26 tablet by ity o f 00:00: mouth in [place] 00 the Medical morning Branch and 1 tablet in the evening. carvediloL 2023-0 Yes [id number] 25mg Take 1 U nivers 25 mg 4-26 tablet by ity of tablet 00:00: mouth in [place] 00 the Medical morning Branch and 1 tablet in the evening. Take with meals. losartan 50 2023-0 Yes [id number] 50mg Take 1 Univers mg tablet 4-26 tablet by ity o f 00:00: mouth in [place] 00 the Medical morning Branch and 1 tablet in the evening. carvediloL 2023-0 Yes [id number] 25mg Take 1 U nivers 25 mg 4-26 tablet by ity of tablet 00:00: mouth in [place] 00 the Medical morning Branch and 1 tablet in the evening. Take with meals. losartan 50 2023-0 Yes [id number] 50mg Take 1 Univers mg tablet 4-26 tablet by ity o f 00:00: mouth in [place] 00 the Medical morning Branch and 1 tablet in the evening. ibuprofen 2023-0 Yes 800mg Take 1 Unive rs 800 mg 3-26 tablet by ity of tablet 00:00: mouth (three) Medical times Branch daily as needed. cyclobenzap 2023-0 Yes 10mg Take 1 Univ ers rine 10 mg 3-26 tablet by ity of tablet 00:00: mouth (three) Medical times Branch daily as needed. ibuprofen 2023-0 Yes 800mg Take 1 Unive rs 800 mg 3-26 tablet by ity of tablet 00:00: mouth (three) Medical times Branch daily as needed. cyclobenzap 2023-0 Yes 10mg Take 1 Univ ers rine 10 mg 3-26 tablet by ity of tablet 00:00: mouth (three) Medical times Branch daily as needed. ibuprofen 2023-0 Yes 800mg Take 1 Unive rs 800 mg 3-26 tablet by ity of tablet 00:00: mouth 3 (three) Medical times Branch daily as needed. cyclobenzap 2023-0 Yes 10mg Take 1 Univ ers rine 10 mg 3-26 tablet by ity of tablet 00:00: mouth 3 (three) Medical times Branch daily as needed. ibuprofen 2023-0 Yes 800mg Take 1 Unive rs 800 mg 3-26 tablet by ity of tablet 00:00: mouth (three) Medical times Branch daily as needed. cyclobenzap 2023-0 Yes 10mg Take 1 Univ ers rine 10 mg 3-26 tablet by ity of tablet 00:00: mouth (three) Medical times Branch daily as needed. ibuprofen 2023-0 Yes 800mg Take 1 Unive rs 800 mg 3-26 tablet by ity of tablet 00:00: mouth (three) Medical times Branch daily as needed. cyclobenzap 2023-0 Yes 10mg Take 1 Univ ers rine 10 mg 3-26 tablet by ity of tablet 00:00: mouth (three) Medical times Branch daily as needed. ibuprofen 2023-0 Yes 800mg Take 1 Unive rs 800 mg 3-26 tablet by ity of tablet 00:00: mouth (three) Medical times Branch daily as needed. cyclobenzap 2023-0 Yes 10mg Take 1 Univ ers rine 10 mg 3-26 tablet by ity of tablet 00:00: mouth (three) Medical times Branch daily as needed. ibuprofen 2023-0 Yes 800mg Take 1 Unive rs 800 mg 3-26 tablet by ity of tablet 00:00: mouth (three) Medical times Branch daily as needed. cyclobenzap 2023-0 Yes 10mg Take 1 Univ ers rine 10 mg 3-26 tablet by ity of tablet 00:00: mouth (three) Medical times Branch daily as needed. ibuprofen 2023-0 Yes 800mg Take 1 Unive rs 800 mg 3-26 tablet by ity of tablet 00:00: mouth (three) Medical times Branch daily as needed. cyclobenzap 2023-0 Yes 10mg Take 1 Univ ers rine 10 mg 3-26 tablet by ity of tablet 00:00: mouth (three) Medical times Branch daily as needed. ibuprofen 2023-0 Yes 800mg Take 1 Unive rs 800 mg 3-26 tablet by ity of tablet 00:00: mouth 3 (three) Medical times Branch daily as needed. cyclobenzap 2023-0 Yes 10mg Take 1 Univ ers rine 10 mg 3-26 tablet by ity of tablet 00:00: mouth 3 [place] 00 (three) Medical times Branch daily as needed. maalox:diph 0 2022- No 15mL 15 mL, Uni vers enhydrAMINE 08-01 Oral, ity of :lidocaine 00:45: 00:44 ONCE, 1 [place] 2 % viscous 00 :00 dose, On Medi yessi 1:1:1 Tue Branch ([facility] 07/31/22 at [facility]) 1944, [place] oral suspension 15 mL ketorolac 0 2022- No 15mg 15 mg, Unive rs (TORADOL) 08-01 Slow IV ity of injection 00:15: 00:44 Push, [place] 15 mg 00 :00 ONCE, 1 Medical dose, On Branch [facility] 07/31/22 at 1914, Routine ondansetron 0 2022- No 4mg 4 mg, Slow Univers (ZOFRAN 08-01 IV Push, ity of (PF)) 00:15: 00:46 ONCE, 1 [place] injection 4 00 :00 dose, On [facility] yessi mg e Branch 07/31/22 at 1914, [place] famotidine 0 2022- No 20mg 20 mg, Univ ers (PEPCID 08-01 Slow IV ity of (PF)) 00:15: 00:46 [place], [place] injection 00 :00 ONCE, 1 Medical 20 mg dose, On Branch [facility] 07/31/22 at 1914, [place] ondansetron 2022-0 Yes [id number] 4mg Take 1 Univers 4 mg 3-21 tablet by ity of disintegrat 00:00: mouth [place] ing tablet 00 every 8 Medica l (eight) Branch hours as needed for Nausea and Vomiting (N/V). sucralfate 2023-0 Yes [id number] 1g Take 1 U nivers 1 gram 3-21 tablet by ity of tablet 00:00: mouth [place] 00 before Medical meals and Branch at bedtime. ondansetron 3-0 Yes [id number] 4mg Take 1 Univers 4 mg 3-21 tablet by ity of disintegrat 00:00: mouth [place] ing tablet 00 every 8 Medica l (eight) Branch hours as needed for Nausea and Vomiting (N/V). sucralfate 2022-0 Yes [id number] 1g Take 1 U nivers 1 gram 3-21 tablet by ity of tablet 00:00: mouth [place] 00 before Medical meals and Branch at bedtime. ondansetron 2023-0 Yes [id number] 4mg Take 1 Univers 4 mg 3-21 tablet by ity of disintegrat 00:00: mouth [place] ing tablet 00 every 8 Medica l (eight) Branch hours as needed for Nausea and Vomiting (N/V). sucralfate 2023-0 Yes [id number] 1g Take 1 U nivers 1 gram 3-21 tablet by ity of tablet 00:00: mouth [place] 00 before Medical meals and Branch at bedtime. ondansetron 2023-0 Yes [id number] 4mg Take 1 Univers 4 mg 3-21 tablet by ity of disintegrat 00:00: mouth [place] ing tablet 00 every 8 Medica l (eight) Branch hours as needed for Nausea and Vomiting (N/V). sucralfate 2023-0 Yes [id number] 1g Take 1 U nivers 1 gram 3-21 tablet by ity of tablet 00:00: mouth [place] 00 before Medical meals and Branch at bedtime. ondansetron 2023-0 Yes [id number] 4mg Take 1 Univers 4 mg 3-21 tablet by ity of disintegrat 00:00: mouth [place] ing tablet 00 every 8 Medica l (eight) Branch hours as needed for Nausea and Vomiting (N/V). sucralfate 2023-0 Yes [id number] 1g Take 1 U nivers 1 gram 3-21 tablet by ity of tablet 00:00: mouth [place] 00 before Medical meals and Branch at bedtime. ondansetron 2023-0 Yes [id number] 4mg Take 1 Univers 4 mg 3-21 tablet by ity of disintegrat 00:00: mouth [place] ing tablet 00 every 8 Medica l (eight) Branch hours as needed for Nausea and Vomiting (N/V). sucralfate 2023-0 Yes [id number] 1g Take 1 U nivers 1 gram 3-21 tablet by ity of tablet 00:00: mouth [place] 00 before Medical meals and Branch at bedtime. ondansetron 2023-0 Yes [id number] 4mg Take 1 Univers 4 mg 3-21 tablet by ity of disintegrat 00:00: mouth [place] ing tablet 00 every 8 Medica l (eight) Branch hours as needed for Nausea and Vomiting (N/V). sucralfate 2023-0 Yes [id number] 1g Take 1 U nivers 1 gram 3-21 tablet by ity of tablet 00:00: mouth [place] 00 before Medical meals and Branch at bedtime. ondansetron 2023-0 Yes [id number] 4mg Take 1 Univers 4 mg 3-21 tablet by ity of disintegrat 00:00: mouth [place] ing tablet 00 every 8 Medica l (eight) Branch hours as needed for Nausea and Vomiting (N/V). sucralfate 2023-0 Yes [id number] 1g Take 1 U nivers 1 gram 3-21 tablet by ity of tablet 00:00: mouth [place] 00 before Medical meals and Branch at bedtime. ondansetron 2023-0 Yes [id number] 4mg Take 1 Univers 4 mg 3-21 tablet by ity of disintegrat 00:00: mouth [place] ing tablet 00 every 8 Medica l (eight) Branch hours as needed for Nausea and Vomiting (N/V). sucralfate 2023-0 Yes [id number] 1g Take 1 U nivers 1 gram 3-21 tablet by ity of tablet 00:00: mouth [place] 00 before Medical meals and Branch at bedtime. ondansetron 2023-0 Yes [id number] 4mg Take 1 Univers 4 mg 3-21 tablet by ity of disintegrat 00:00: mouth [place] ing tablet 00 every 8 Medica l (eight) Branch hours as needed for Nausea and Vomiting (N/V). sucralfate 2023-0 Yes [id number] 1g Take 1 U nivers 1 gram 3-21 tablet by ity of tablet 00:00: mouth [place] 00 before Medical meals and Branch at bedtime. ondansetron 2023-0 Yes [id number] 4mg Take 1 Univers 4 mg 3-21 tablet by ity of disintegrat 00:00: mouth [place] ing tablet 00 every 8 Medica l (eight) Branch hours as needed for Nausea and Vomiting (N/V). sucralfate 2023-0 Yes [id number] 1g Take 1 U nivers 1 gram 3-21 tablet by ity of tablet 00:00: mouth [place] 00 before Medical meals and Branch at bedtime. pantoprazol 2023-0 2023- Yes [id number] 40mg Take 1 Univers e 40 mg EC 3-21 04-05 tablet by ity of tablet 00:00: 04:59 mouth in [place] 00 :00 the Medical morning Branch for 14 days. pantoprazol 2023-0 2023- Yes [id number] 40mg Take 1 Univers e 40 mg EC 3-21 04-05 tablet by ity of tablet 00:00: 04:59 mouth in [place] 00 :00 the Medical morning Branch for 14 days. tamsulosin 2023-0 Yes .4mg Take 1 Unive rs 0.4 mg 24 3-15 capsule by ity of hr capsule 00:00: mouth in [place] 00 the Medical morning. Branch tamsulosin 2023-0 Yes .4mg Take 1 Unive rs 0.4 mg 24 3-15 capsule by ity of hr capsule 00:00: mouth in [place] 00 the Medical morning. Branch tamsulosin 2023-0 Yes .4mg Take 1 Unive rs 0.4 mg 24 3-15 capsule by ity of hr capsule 00:00: mouth in [place] 00 the Medical morning. Branch tamsulosin 2023-0 Yes .4mg Take 1 Unive rs 0.4 mg 24 3-15 capsule by ity of hr capsule 00:00: mouth in [place] 00 the Medical morning. Branch tamsulosin 2023-0 Yes .4mg Take 1 Unive rs 0.4 mg 24 3-15 capsule by ity of hr capsule 00:00: mouth in [place] 00 the Medical morning. Branch tamsulosin 2023-0 Yes .4mg Take 1 Unive rs 0.4 mg 24 3-15 capsule by ity of hr capsule 00:00: mouth in [place] 00 the Medical morning. Branch tamsulosin 2023-0 Yes .4mg Take 1 Unive rs 0.4 mg 24 3-15 capsule by ity of hr capsule 00:00: mouth in [place] 00 the Medical morning. Branch tamsulosin 2023-0 Yes .4mg Take 1 Unive rs 0.4 mg 24 3-15 capsule by ity of hr capsule 00:00: mouth in [place] 00 the Medical morning. Branch tamsulosin 2023-0 Yes .4mg Take 1 Unive rs 0.4 mg 24 3-15 capsule by ity of hr capsule 00:00: mouth in [place] 00 the Medical morning. Branch traMADoL 50 3-0 Yes 50mg Take 1 Univ ers mg tablet 3-13 tablet by ity o f 00:00: mouth. [place] [facility] traMADoL 50 2023-0 Yes 50mg Take 1 Univ ers mg tablet 3-13 tablet by ity o f 00:00: mouth. [place] [facility] traMADoL 50 3-0 Yes 50mg Take 1 Univ ers mg tablet 3-13 tablet by ity o f 00:00: mouth. [place] [facility] traMADoL 50 3-0 Yes 50mg Take 1 Univ ers mg tablet 3-13 tablet by ity o f 00:00: mouth. [place] [facility] traMADoL 50 3-0 Yes 50mg Take 1 Univ ers mg tablet 3-13 tablet by ity o f 00:00: mouth. [place] [facility] traMADoL 50 3-0 Yes 50mg Take 1 Univ ers mg tablet 3-13 tablet by ity o f 00:00: mouth. [place] [facility] traMADoL 50 3-0 Yes 50mg Take 1 Univ ers mg tablet 3-13 tablet by ity o f 00:00: mouth. [place] [facility] traMADoL 50 3-0 Yes 50mg Take 1 Univ ers mg tablet 3-13 tablet by ity o f 00:00: mouth. [place] [facility] traMADoL 50 3-0 Yes 50mg Take 1 Univ ers mg tablet 3-13 tablet by ity o f 00:00: mouth. [place] [facility] ibuprofen 2023-0 Yes [id number] 600mg Take 1 Univers 600 mg 3-05 [id number] tablet by ity of tablet 00:00: mouth [place] every 6 Medical (six) Branch hours as needed for Pain (scale 4-6). ibuprofen 2023-0 Yes [id number] 600mg Take 1 Univers 600 mg 3-05 [id number] tablet by ity of tablet 00:00: mouth [place] [address] every 6 Medical (six) Branch hours as needed for Pain (scale 4-6). ibuprofen 2023-0 Yes [id number] 600mg Take 1 Univers 600 mg 3-05 [id number] tablet by ity of tablet 00:00: mouth [place] [address] every 6 Medical (six) Branch hours as needed for Pain (scale 4-6). ibuprofen 2023-0 3- No [id number] 600mg Take 1 Univers 600 mg 07-15 [id number] tablet by ity o f tablet 00:00: 00:00 mouth [place] 00 :00 every 6 Medical (six) Branch hours as needed for Pain (scale 4-6). citalopram 2023-0 Yes 10mg Take 1 Unive rs 10 mg 2-17 tablet by ity of tablet 00:00: mouth in [place] 00 the Medical morning. Branch QUEtiapine 3-0 Yes Univers 400 mg 2-17 ity of tablet 00:00: [place] 00 Medical Branch gabapentin 2023-0 Yes Univers 600 mg 2-17 ity of tablet 00:00: [place] 00 Medical Branch citalopram 2023-0 Yes 10mg Take 1 Unive rs 10 mg 2-17 tablet by ity of tablet 00:00: mouth in [place] the Medical morning. Branch QUEtiapine 3-0 Yes Univers 400 mg 2-17 ity of tablet 00:00: [place] 00 Medical Branch gabapentin 2023-0 Yes [facility] 600 mg 2-17 ity of tablet 00:00: [place] 00 [facility] citalopram 2023-0 Yes 10mg Take 1 [facility] 10 mg 2-17 tablet by ity of tablet 00:00: mouth in [place] the Medical morning. Branch QUEtiapine 3-0 Yes [facility] 400 mg 2-17 ity of tablet 00:00: [place] 00 [facility] gabapentin 2023-0 Yes [facility] 600 mg 2-17 ity of tablet 00:00: [place] 00 [facility] citalopram 2023-0 Yes 10mg Take 1 [facility] 10 mg 2-17 tablet by ity of tablet 00:00: mouth in [place] the [facility] morning. Branch QUEtiapine 2023-0 Yes [facility] 400 mg 2-17 ity of tablet 00:00: [place] 00 [facility] gabapentin 2023-0 Yes [facility] 600 mg 2-17 ity of tablet 00:00: [place] 00 [facility] citalopram 2023-0 Yes 10mg Take 1 [facility] 10 mg 2-17 tablet by ity of tablet 00:00: mouth in [place] the Medical morning. Branch QUEtiapine 2023-0 Yes [facility] 400 mg 2-17 ity of tablet 00:00: [place] 00 [facility] gabapentin 2023-0 Yes [facility] 600 mg 2-17 ity of tablet 00:00: [place] 00 [facility] citalopram 2023-0 Yes 10mg Take 1 [facility] 10 mg 2-17 tablet by ity of tablet 00:00: mouth in [place] the Medical morning. Branch QUEtiapine 2023-0 Yes [facility] 400 mg 2-17 ity of tablet 00:00: [place] 00 [facility] gabapentin 2023-0 Yes [facility] 600 mg 2-17 ity of tablet 00:00: [place] 00 [facility] citalopram 2023-0 Yes 10mg Take 1 [facility] 10 mg 2-17 tablet by ity of tablet 00:00: mouth in [place] the Medical morning. Branch QUEtiapine 2023-0 Yes [facility] 400 mg 2-17 ity of tablet 00:00: [place] 00 [facility] gabapentin 2023-0 Yes [facility] 600 mg 2-17 ity of tablet 00:00: [place] 00 [facility] citalopram 2023-0 Yes 10mg Take 1 [facility] 10 mg 2-17 tablet by ity of tablet 00:00: mouth in [place] the Medical morning. Branch QUEtiapine 2023-0 Yes [facility] 400 mg 2-17 ity of tablet 00:00: [place] 00 [facility] gabapentin 2023-0 Yes [facility] 600 mg 2-17 ity of tablet 00:00: [place] 00 [facility] citalopram 2023-0 Yes 10mg Take 1 [facility] 10 mg 2-17 tablet by ity of tablet 00:00: mouth in [place] the Medical morning. Branch QUEtiapine 2023-0 Yes [facility] 400 mg 2-17 ity of tablet 00:00: [place] 00 [facility] gabapentin 2023-0 Yes [facility] 600 mg 2-17 ity of tablet 00:00: [place] 00 [facility] methylPREDN 2023-0 Yes [id number] Take by [facility] ISolone 2-11 mouth ity of (MEDROL, 00:00: SEE-INSTRU [place] ANABELA,) 4 mg 00 CTIONS. Medica l tablets follow Branch package directions methylPREDN 2023-0 Yes [id number] Take by [facility] ISolone 2-11 mouth ity of (MEDROL, 00:00: SEE-INSTRU [place] A[place]ELA,) 4 mg 00 CTIONS. Medica l tablets follow Branch package directions methylPREDN 2023-0 Yes [id number] Take by [facility] ISolone 2-11 mouth ity of (MEDROL, 00:00: SEE-INSTRU [place],) 4 mg 00 CTIONS. Medica l tablets follow Branch package directions methylPREDN 2023-0 Yes [id number] Take by [facility] ISolone 2-11 mouth ity of (MEDROL, 00:00: SEE-INSTRU [place],) 4 mg 00 CTIONS. Medica l tablets follow Branch package directions methylPREDN 2023-0 Yes [id number] Take by [facility] ISolone 2-11 mouth ity of (MEDROL, 00:00: SEE-INSTRU [place],) 4 mg 00 CTIONS. Medica l tablets follow Branch package directions methylPREDN 2023-0 Yes [id number] Take by [facility] ISolone 2-11 mouth ity of (MEDROL, 00:00: SEE-INSTRU [place],) 4 mg 00 CTIONS. Medica l tablets follow Branch package directions methylPREDN 2023-0 Yes [id number] Take by [facility] ISolone 2-11 mouth ity of (MEDROL, 00:00: SEE-INSTRU [place],) 4 mg 00 CTIONS. Medica l tablets follow Branch package directions methylPREDN 2023-0 Yes [id number] Take by [facility] ISolone 2-11 mouth ity of (MEDROL, 00:00: SEE-INSTRU [place],) 4 mg 00 CTIONS. Medica l tablets follow Branch package directions methylPREDN 2023-0 Yes [id number] Take by [facility] ISolone 2-11 mouth ity of (MEDROL, 00:00: SEE-INSTRU [place],) 4 mg 00 CTIONS. Medica l tablets follow Branch package directions methylPREDN 2023-0 Yes [id number] Take by [facility] ISolone 2-11 mouth ity of (MEDROL, 00:00: SEE-INSTRU [place],) 4 mg 00 CTIONS. Medica l tablets follow Branch package directions methylPREDN 2023-0 Yes [id number] Take by [facility] ISolone 2-11 mouth ity of (MEDROL, 00:00: SEE-INSTRU [place],) 4 mg 00 CTIONS. Medica l tablets follow Branch package directions methylPREDN 2023-0 Yes [id number] Take by [facility] ISolone 2-11 mouth ity of (MEDROL, 00:00: SEE-INSTRU [place],) 4 mg 00 CTIONS. Medica l tablets follow Branch package directions methylPREDN 2022-0 Yes [id number] Take by [facility] ISolone 2-11 mouth ity of (MEDROL, 00:00: SEE-INSTRU [place],) 4 mg 00 CTIONS. Medica l tablets follow Branch package directions methylPREDN 2022-0 Yes [id number] Take by [facility] ISolone 2-11 mouth ity of (MEDROL, 00:00: SEE-INSTRU [place],) 4 mg 00 CTIONS. Medica l tablets follow Branch package directions bromphenira 2022- No [id number] 5mL Take 5 mL [facility] mine-pseudo 06-23 by mouth 4 i ty of ephedrine-D 00:00: 05:59 (four) [place] M (BROMFED 00 :00 times Medical DM) 2-30-10 daily as Bran ch mg/5 mL needed for syrup Cold symptoms for up to 10 days. methocarbam 2022- No [id number] 750mg Take 1 [facility] oL 750 mg 06-23 [id number] tablet by it y of tablet 00:00: 05:59 mouth 4 [place] 00 :00 (four) Medical times Branch daily for 7 days. magnesium 2021-05 No 2g 2 g, IV Univ ers sulfate in 07-06- Piggyback, it y of water 2 21:00: 21:15 Administer [place] as gram/50 mL 00 :00 over 15 Medica l (4 %) Minutes, Branch infusion 2 ONCE, 1 g dose, On 05/05/22 at 1500, [place] butalbital- 2021-05- No 1{tbl} 1 tablet, [facility] acetaminoph 07-06- Oral, ity of en-caff 20:15: 20:56 ONCE, [...] 1000mL at 999 Uni vers (NS) bolus 2-24 12-24 mL/hr, ity of infusion 20:00: 21:45 [...] No 4mg 4 mg, Slow [facility] (ZOFRAN 2-24 12-24 IV Push, ity of (PF)) 19:15: 19:45 ONCE, 1 [place] injection 4 00 :00 dose, On Medi yessi mg Sat Branch 05/05/22 at 1315, [place] ketorolac 2021-05- No 30mg 30 mg, Unive rs (TORADOL) 2-24 12-24 Slow IV ity of injection 19:15: 19:44 Push, [place] 30 mg 00 :00 ONCE, 1 Medical dose, On Branch 05/05/22 at 1315, Routine butalbital- 2021-05 Yes [id number] 1{tbl} Take 1 [facility] acetaminoph 2-24 tablet by ity of en-caff 00:00: mouth [place] 50-325-40 00 every 4 Medical mg tablet (four) Branch hours as needed for Pain (scale 7-10). butalbital- 2021-05 Yes [id number] 1{tbl} Take 1 [facility] acetaminoph 2-24 tablet by ity of en-caff 00:00: mouth [place] 50-325-40 00 every 4 Medical mg tablet (four) Branch hours as needed for Pain (scale 7-10). butalbital- 2021-05 Yes [id number] 1{tbl} Take 1 [facility] acetaminoph 2-24 tablet by ity of en-caff 00:00: mouth [place] 50-325-40 00 every 4 Medical mg tablet (four) Branch hours as needed for Pain (scale 7-10). butalbital- 2021-05 Yes [id number] 1{tbl} Take 1 [facility] acetaminoph 2-24 tablet by ity of en-caff 00:00: mouth [place] 50-325-40 00 every 4 Medical mg tablet (four) Branch hours as needed for Pain (scale 7-10). butalbital2021-05 Yes [id number] 1{tbl} Take 1 [facility] acetaminoph 2-24 tablet by ity of en-caff 00:00: mouth [place] 50-325-40 00 every 4 Medical mg tablet (four) Branch hours as needed for Pain (scale 7-10). butalbital2021-05 Yes [id number] 1{tbl} Take 1 [facility] acetaminoph 2-24 tablet by ity of en-caff 00:00: mouth [place] 50-325-40 00 every 4 Medical mg tablet (four) Branch hours as needed for Pain (scale 7-10). butalbital2021-05 Yes [id number] 1{tbl} Take 1 [facility] acetaminoph 2-24 tablet by ity of en-caff 00:00: mouth [place] 50-325-40 00 every 4 Medical mg tablet (four) Branch hours as needed for Pain (scale 7-10). butalbital2021-05 Yes [id number] 1{tbl} Take 1 [facility] acetaminoph 2-24 tablet by ity of en-caff 00:00: mouth [place] 50-325-40 00 every 4 Medical mg tablet (four) Branch hours as needed for Pain (scale 7-10). butalbital2021-05 Yes [id number] 1{tbl} Take 1 [facility] acetaminoph 2-24 tablet by ity of en-caff 00:00: mouth [place] 50-325-40 00 every 4 Medical mg tablet (four) Branch hours as needed for Pain (scale 7-10). butalbital2021-05 Yes [id number] 1{tbl} Take 1 [facility] acetaminoph 2-24 tablet by ity of en-caff 00:00: mouth [place] 50-325-40 00 every 4 Medical mg tablet (four) Branch hours as needed for Pain (scale 7-10). butalbital- 2021-05 Yes [id number] 1{tbl} Take 1 [facility] acetaminoph 2-24 tablet by ity of en-caff 00:00: mouth [place] 50-325-40 00 every 4 Medical mg tablet (four) Branch hours as needed for Pain (scale 7-10). butalbital- 2021-05 Yes [id number] 1{tbl} Take 1 [facility] acetaminoph 2-24 tablet by ity of en-caff 00:00: mouth [place] 50-325-40 00 every 4 Medical mg tablet (four) Branch hours as needed for Pain (scale 7-10). butalbital- 2021-05 Yes [id number] 1{tbl} Take 1 [facility] acetaminoph 2-24 tablet by ity of en-caff 00:00: mouth [place] 50-325-40 00 every 4 Medical mg tablet (four) Branch hours as needed for Pain (scale 7-10). butalbital- 2021-05 Yes [id number] 1{tbl} Take 1 [facility] acetaminoph 2-24 tablet by ity of en-caff 00:00: mouth [place] 50-325-40 00 every 4 Medical mg tablet (four) Branch hours as needed for Pain (scale 7-10). butalbital- 2021-05 Yes [id number] 1{tbl} Take 1 [facility] acetaminoph 2-24 tablet by ity of en-caff 00:00: mouth [place] 50-325-40 00 every 4 Medical mg tablet (four) Branch hours as needed for Pain (scale 7-10). butalbital2021-05 Yes [id number] 1{tbl} Take 1 [facility] acetaminoph 2-24 tablet by ity of en-caff 00:00: mouth [place] 50-325-40 00 every 4 Medical mg tablet (four) Branch hours as needed for Pain (scale 7-10). HYDROcodone 2021-05 1{tbl} 1 tablet, Univers -acetaminop 2-15 12-15 Oral, ity of hen (NORCO) 16:30: 15:23 ONCE, 1 [place] 10-325 mg 00 :00 dose, On Medica l tablet 1 [place] Branch tablet 04/26/22 at 1030, Routine diphenhydrA 2021-05 No 25mg 25 mg, Uni vers MINE 2-15 12-15 Oral, ity of (BENADRYL) 15:45: 15:53 ONCE, 1 [place] tablet 25 00 :00 dose, On Medica l mg [facility] Branch 04/26/22 at 0945, [place] NaCl 0.9% 2021-05 No 1000mL at 999 Uni vers (NS) bolus 2-15 12-15 mL/hr, ity of infusion 15:45: 15:55 1,000 mL, [place] 1,000 mL 00 :00 IV Medical Piggyback, Branch ONCE, 1 dose, On [place] 04/26/22 at 0945, STAT ondansetron 2021-05 No 4mg 4 mg, Slow [facility] (ZOFRAN 2-15 12-15 IV Push, ity of (PF)) 14:45: 14:52 ONCE, 1 [place] injection 4 00 :00 dose, On Medi yessi mg [facility] Branch 04/26/22 at 0845, Routine cephALEXin 2021-05- No [id number] 500mg Take 1 [facility] (KEFLEX) 2-15 12-23 [...] for Nausea and Vomiting (N/V). ondansetron 2021- Yes 4mg Take 1 Univ ers (ZOFRAN) [...] needed for Nausea and Vomiting (N/V). ondansetron 2021-05- No 4mg Take 1 Uni vers (ZOFRAN) 4 30 -21 tablet by ity of mg tablet 00:00: 00:00 mouth [place] 00 :00 every 8 Medical (eight) Branch hours as needed for Nausea and Vomiting (N/V). galcanezuma 2021-05 Yes [id number] 120mg inject 120 [facility] b-gnlm 1-28 mg under ity of prefilled 00:00: [place] (EMGALITY) 00 once every Med ical subcutaneou month. Branch s injection galcanezuma 2021-05 Yes [id number] 120mg inject 120 [facility] b-gnlm 1-28 mg under ity of prefilled 00:00: [place] (EMGALITY) 00 once every Med ical subcutaneou month. Branch s injection galcanezuma 2021-05 Yes [id number] 120mg inject 120 [facility] b-gnlm 1-28 mg under ity of prefilled 00:00: [place] (EMGALITY) 00 once every Med ical subcutaneou month. Branch s injection galcanezuma 2021-05 Yes [id number] 120mg inject 120 [facility] b-gnlm 1-28 mg under ity of prefilled 00:00: [place] (EMGALITY) 00 once every Med ical subcutaneou month. Branch s injection galcanezuma 2021-05 Yes [id number] 120mg inject 120 [facility] b-gnlm 1-28 mg under ity of prefilled 00:00: [place] (EMGALITY) 00 once every Med ical subcutaneou month. Branch s injection galcanezuma 2021-05 Yes [id number] 120mg inject 120 [facility] b-gnlm 1-28 mg under ity of prefilled 00:00: [place] (EMGALITY) 00 once every Med ical subcutaneou month. Branch s injection galcanezuma 2021-05 Yes [id number] 120mg inject 120 [facility] b-gnlm 1-28 mg under ity of prefilled 00:00: [place] (EMGALITY) 00 once every Med ical subcutaneou month. Branch s injection galcanezuma 2021-05 Yes [id number] 120mg inject 120 [facility] b-gnlm 1-28 mg under ity of prefilled 00:00: [place] (EMGALITY) 00 once every Med ical subcutaneou month. Branch s injection galcanezuma 2021-05 Yes [id number] 120mg inject 120 [facility] b-gnlm 1-28 mg under ity of prefilled 00:00: [place] (EMGALITY) 00 once every Med ical subcutaneou month. Branch s injection galcanezuma 2021-05 Yes [id number] 120mg inject 120 [facility] b-gnlm 1-28 mg under ity of prefilled 00:00: the [place] (EMGALITY) 00 once every Med ical subcutaneou month. Branch s injection galcanezuma 2021-05 Yes [id number] 120mg inject 120 [facility] b-gnlm 1-28 mg under ity of prefilled 00:00: [place] (EMGALITY) 00 once every Med ical subcutaneou month. Branch s injection galcanezuma 2021-05 Yes [id number] 120mg inject 120 [facility] b-gnlm 1-28 mg under ity of prefilled 00:00: the [place] (EMGALITY) 00 once every Med ical subcutaneou month. Branch s injection galcanezuma 2021-05 Yes [id number] 120mg inject 120 [facility] b-gnlm 1-28 mg under ity of prefilled 00:00: the [place] (EMGALITY) 00 once every Med ical subcutaneou month. Branch s injection galcanezuma 2021-05 Yes [id number] 120mg inject 120 [facility] b-gnlm 1-28 mg under ity of prefilled 00:00: the [place] (EMGALITY) 00 once every Med ical subcutaneou month. Branch s injection galcanezuma 2021-05 Yes [id number] 120mg inject 120 [facility] b-gnlm 1-28 mg under ity of prefilled 00:00: the [place] (EMGALITY) 00 once every Med ical subcutaneou month. Branch s injection galcanezuma 2021-05 Yes [id number] 120mg inject 120 [facility] b-gnlm 1-28 mg under ity of prefilled 00:00: the [place] (EMGALITY) 00 once every Med ical subcutaneou month. Branch s injection galcanezuma 2021-05 Yes [id number] 120mg inject 120 [facility] b-gnlm 1-28 mg under ity of prefilled 00:00: the [place] (EMGALITY) 00 once every Med ical subcutaneou month. Branch s injection galcanezuma 2021-05 Yes [id number] 120mg inject 120 [facility] b-gnlm 1-28 mg under ity of prefilled 00:00: the [place] (EMGALITY) 00 once every Med ical subcutaneou month. Branch s injection galcanezuma 2021-05 Yes [id number] 120mg inject 120 [facility] b-gnlm 1-28 mg under ity of prefilled 00:00: the [place] (EMGALITY) 00 once every Med ical subcutaneou month. Branch s injection galcanezuma 2021-05 Yes [id number] 120mg inject 120 [facility] b-gnlm 1-28 mg under ity of prefilled 00:00: the [place] (EMGALITY) 00 once every Med ical subcutaneou month. Branch s injection galcanezuma 2021-05 Yes [id number] 120mg inject 120 [facility] b-gnlm 1-28 mg under ity of prefilled 00:00: the [place] (EMGALITY) 00 once every Med ical subcutaneou month. Branch s injection galcanezuma 2021-05 Yes [id number] 120mg inject 120 [facility] b-gnlm 1-28 mg under ity of prefilled 00:00: the [place] (EMGALITY) 00 once every Med ical subcutaneou month. Branch s injection galcanezuma 2021-05 Yes [id number] 120mg inject 120 [facility] b-gnlm 1-28 mg under ity of prefilled 00:00: the [place] (EMGALITY) 00 once every Med ical subcutaneou month. Branch s injection galcanezuma 2021-05 Yes [id number] 120mg inject 120 [facility] b-gnlm 1-28 mg under ity of prefilled 00:00: the [place] (EMGALITY) 00 once every Med ical subcutaneou month. Branch s injection galcanezuma 2021-05 Yes [id number] 120mg inject 120 [facility] b-gnlm 1-28 mg under ity of prefilled 00:00: the [place] (EMGALITY) 00 once every Med ical subcutaneou month. Branch s injection galcanezuma 2021-05 Yes [id number] 120mg inject 120 [facility] b-gnlm 1-28 mg under ity of prefilled 00:00: the [place] (EMGALITY) 00 once every Med ical subcutaneou month. Branch s injection galcanezuma 2021-05 Yes [id number] 120mg inject 120 [facility] b-gnlm 1-28 mg under ity of prefilled 00:00: the [place] (EMGALITY) 00 once every Med ical subcutaneou month. Branch s injection methocarbam 2021-05 Yes 1000mg 1,000 mg, Univers oL 06-08 Intravenou ity of (ROBAXIN) 04:00: s, Q8H, [place] injection 00 First dose Medi yessi 1,000 mg on Sat Branch 04/07/22 at 2200, Until Discontinu ed, Routine ketorolac 2021-05- No 30mg 30 mg, Unive [...] dose, On Medica l tablet 1 Sat [place] tablet 04/07/22 at 1830, Routine diphenhydrA 2021-05- [...] dose, On 04/07/22 at 1715, [place] ketorolac 2021-05- No 15mg 15 mg, [...] On Branch 03/24/22 at 0930, STAT ondansetron 2022-1 2022- No 4mg 4 mg, Slow [facility] (ZOFRAN 05-24 IV Push, ity of (PF)) 15:30: 14:25 ONCE, 1 [place] injection 4 00 :00 dose, On Medi yessi mg Sat Branch 03/24/22 at 0930, [place] NaCl 0.9% 2021-05- No 1000mL at 999 Uni vers (NS) IV 05-24 mL/hr, ity of infusion 15:15: 17:25 Intravenou [place] 1,000 mL 00 :00 s, ONCE, 1 Medic al dose, On Branch 03/24/22 at 0915, [place] magnesium 2021-05- No 2g 2 g, IV Univ ers sulfate in 05-24 Piggyback, it y of water 2 15:00: 14:47 Administer [place] gram/50 mL 00 :00 over 20 Medica l (4 %) Minutes, Branch infusion 2 ONCE, 1 g dose, On 03/24/22 at 0900, Routine dexamethaso 2021-05- No 6mg 6 mg, Slow [facility] ne [...] 13 :00 Medical Branch rizatriptan 2021-05 Yes [id number] 10mg Take 1 [facility] 10 mg 1-12 tablet by ity of tablet 00:00: mouth as [place] 00 needed for Medical Migraine. Branch May repeat in 2 hours if needed Butalbital- 2021-05 Yes [id number] 1{capsu Take 1 [facility] Acetaminoph 1-12 le} [...] daily. Indication s: headache rizatriptan 2021-05 Yes [id number] 10mg Take 1 [facility] 10 mg 1-12 tablet by ity of tablet 00:00: mouth as [place] 00 needed for Medical Migraine. Branch May repeat in 2 hours if needed Butalbital- 2021-05 Yes [id number] 1{capsu Take 1 [facility] Acetaminoph 1-12 le} [...] daily. Indication s: headache rizatriptan 2021-05 Yes [id number] 10mg Take 1 [facility] 10 mg 1-12 tablet by ity of tablet 00:00: mouth as [place] 00 needed for Medical Migraine. Branch May repeat in 2 hours if needed Butalbital- 2021-05 Yes [id number] 1{capsu Take 1 [facility] Acetaminoph 1-12 le} [...] daily. Indication s: headache rizatriptan 2021-05 Yes [id number] 10mg Take 1 [facility] 10 mg 1-12 tablet by ity of tablet 00:00: mouth as [place] 00 needed for Medical Migraine. Branch May repeat in 2 hours if needed Butalbital- 2021-05 Yes [id number] 1{capsu Take 1 [facility] Acetaminoph 1-12 le} capsule by it y of en-Caff 00:00: mouth [place] (FIORICET) 00 every 6 Medica l 50-300-40 (six) Branch mg per hours as capsule needed for Other (headache) . rizatriptan 2021-05 Yes [id number] 10mg Take 1 [facility] 10 mg 1-12 tablet by ity of tablet 00:00: mouth as [place] 00 needed for Medical Migraine. Branch May repeat in 2 hours if needed Butalbital- 2021-05 Yes [id number] 1{capsu Take 1 [facility] Acetaminoph 1-12 le} capsule by it y of en-Caff 00:00: mouth [place] (FIORICET) 00 every 6 Medica l 50-300-40 (six) Branch mg per hours as capsule needed for Other (headache) . rizatriptan 2021-05 Yes [id number] 10mg Take 1 [facility] 10 mg 1-12 tablet by ity of tablet 00:00: mouth as [place] 00 needed for Medical Migraine. Branch May repeat in 2 hours if needed Butalbital- 2021-05 Yes [id number] 1{capsu Take 1 [facility] Acetaminoph 1-12 le} capsule by it y of en-Caff 00:00: mouth [place] (FIORICET) 00 every 6 Medica l 50-300-40 (six) Branch mg per hours as capsule needed for Other (headache) . rizatriptan 2021-05 Yes [id number] 10mg Take 1 [facility] 10 mg 1-12 tablet by ity of tablet 00:00: mouth as [place] 00 needed for Medical Migraine. Branch May repeat in 2 hours if needed Butalbital- 2021-05 Yes [id number] 1{capsu Take 1 [facility] Acetaminoph 1-12 le} capsule by it y of en-Caff 00:00: mouth [place] (FIORICET) 00 every 6 Medica l 50-300-40 (six) Branch mg per hours as capsule needed for Other (headache) . rizatriptan 2021-05 Yes [id number] 10mg Take 1 [facility] 10 mg 1-12 tablet by ity of tablet 00:00: mouth as [place] 00 needed for Medical Migraine. Branch May repeat in 2 hours if needed Butalbital- 2021-05 Yes [id number] 1{capsu Take 1 [facility] Acetaminoph 1-12 le} capsule by it y of en-Caff 00:00: mouth [place] (FIORICET) 00 every 6 Medica l 50-300-40 (six) Branch mg per hours as capsule needed for Other (headache) . rizatriptan 2021-05 Yes [id number] 10mg Take 1 [facility] 10 mg 1-12 tablet by ity of tablet 00:00: mouth as [place] 00 needed for Medical Migraine. Branch May repeat in 2 hours if needed Butalbital- 2021-05 Yes [id number] 1{capsu Take 1 [facility] Acetaminoph 1-12 le} capsule by it y of en-Caff 00:00: mouth [place] (FIORICET) 00 every 6 Medica l 50-300-40 (six) Branch mg per hours as capsule needed for Other (headache) . rizatriptan 2021-05 Yes [id number] 10mg Take 1 [facility] 10 mg 1-12 tablet by ity of tablet 00:00: mouth as [place] 00 needed for Medical Migraine. Branch May repeat in 2 hours if needed Butalbital- 2021-05 Yes [id number] 1{capsu Take 1 [facility] Acetaminoph 1-12 le} capsule by it y of en-Caff 00:00: mouth [place] (FIORICET) 00 every 6 Medica l 50-300-40 (six) Branch mg per hours as capsule needed for Other (headache) . rizatriptan 2021-05 Yes [id number] 10mg Take 1 [facility] 10 mg 1-12 tablet by ity of tablet 00:00: mouth as [place] 00 needed for Medical Migraine. Branch May repeat in 2 hours if needed Butalbital- 2021-05 Yes [id number] 1{capsu Take 1 Univers Acetaminoph 1-12 le} capsule by it y of en-Caff 00:00: mouth [place] (FIORICET) 00 every 6 Medica l 50-300-40 (six) Branch mg per hours as capsule needed for Other (headache) . rizatriptan 2021-05 Yes [id number] 10mg Take 1 [facility] 10 mg 1-12 tablet by ity of tablet 00:00: mouth as [place] 00 needed for Medical Migraine. Branch May repeat in 2 hours if needed Butalbital- 2021-05 Yes [id number] 1{capsu Take 1 [facility] Acetaminoph 1-12 le} capsule by it y of en-Caff 00:00: mouth [place] (FIORICET) 00 every 6 Medica l 50-300-40 (six) Branch mg per hours as capsule needed for Other (headache) . rizatriptan 2021-05 Yes [id number] 10mg Take 1 [facility] 10 mg 1-12 tablet by ity of tablet 00:00: mouth as [place] 00 needed for Medical Migraine. Branch May repeat in 2 hours if needed Butalbital- 2021-05 Yes [id number] 1{capsu Take 1 [facility] Acetaminoph 1-12 le} capsule by it y of en-Caff 00:00: mouth [place] (FIORICET) 00 every 6 Medica l 50-300-40 (six) Branch mg per hours as capsule needed for Other (headache) . rizatriptan 2021-05 Yes [id number] 10mg Take 1 [facility] 10 mg 1-12 tablet by ity of tablet 00:00: mouth as [place] 00 needed for Medical Migraine. Branch May repeat in 2 hours if needed Butalbital- 2021-05 Yes [id number] 1{capsu Take 1 [facility] Acetaminoph 1-12 le} capsule by it y of en-Caff 00:00: mouth [place] (FIORICET) 00 every 6 Medica l 50-300-40 (six) Branch mg per hours as capsule needed for Other (headache) . rizatriptan 2021-05 Yes [id number] 10mg Take 1 [facility] 10 mg 1-12 tablet by ity of tablet 00:00: mouth as [place] 00 needed for Medical Migraine. Branch May repeat in 2 hours if needed Butalbital- 2021-05 Yes [id number] 1{capsu Take 1 [facility] Acetaminoph 1-12 le} capsule by it y of en-Caff 00:00: mouth [place] (FIORICET) 00 every 6 Medica l 50-300-40 (six) Branch mg per hours as capsule needed for Other (headache) . rizatriptan 2021-05 Yes [id number] 10mg Take 1 [facility] 10 mg 1-12 tablet by ity of tablet 00:00: mouth as [place] 00 needed for Medical Migraine. Branch May repeat in 2 hours if needed Butalbital- 2021-05 Yes [id number] 1{capsu Take 1 [facility] Acetaminoph 1-12 le} capsule by it y of en-Caff 00:00: mouth [place] (FIORICET) 00 every 6 Medica l 50-300-40 (six) Branch mg per hours as capsule needed for Other (headache) . rizatriptan 2021-05 Yes [id number] 10mg Take 1 [facility] 10 mg 1-12 tablet by ity of tablet 00:00: mouth as [place] 00 needed for Medical Migraine. Branch May repeat in 2 hours if needed Butalbital- 2021-05 Yes [id number] 1{capsu Take 1 [facility] Acetaminoph 1-12 le} capsule by it y of en-Caff 00:00: mouth [place] (FIORICET) 00 every 6 Medica l 50-300-40 (six) Branch mg per hours as capsule needed for Other (headache) . rizatriptan 2021-05 Yes [id number] 10mg Take 1 [facility] 10 mg 1-12 tablet by ity of tablet 00:00: mouth as [place] 00 needed for Medical Migraine. Branch May repeat in 2 hours if needed Butalbital- 2021-05 Yes [id number] 1{capsu Take 1 [facility] Acetaminoph 1-12 le} capsule by it y of en-Caff 00:00: mouth [place] (FIORICET) 00 every 6 Medica l 50-300-40 (six) Branch mg per hours as capsule needed for Other (headache) . rizatriptan 2021-05 Yes [id number] 10mg Take 1 [facility] 10 mg 1-12 tablet by ity of tablet 00:00: mouth as [place] 00 needed for Medical Migraine. Branch May repeat in 2 hours if needed Butalbital- 2021-05 Yes [id number] 1{capsu Take 1 [facility] Acetaminoph 1-12 le} capsule by it y of en-Caff 00:00: mouth [place] (FIORICET) 00 every 6 Medica l 50-300-40 (six) Branch mg per hours as capsule needed for Other (headache) . rizatriptan 2021-05 Yes [id number] 10mg Take 1 [facility] 10 mg 1-12 tablet by ity of tablet 00:00: mouth as [place] 00 needed for Medical Migraine. Branch May repeat in 2 hours if needed Butalbital- 2021-05 Yes [id number] 1{capsu Take 1 [facility] Acetaminoph 1-12 le} capsule by it y of en-Caff 00:00: mouth [place] (FIORICET) 00 every 6 Medica l 50-300-40 (six) Branch mg per hours as capsule needed for Other (headache) . rizatriptan 2021-05 Yes [id number] 10mg Take 1 [facility] 10 mg 1-12 tablet by ity of tablet 00:00: mouth as [place] 00 needed for Medical Migraine. Branch May repeat in 2 hours if needed Butalbital- 2021-05 Yes [id number] 1{capsu Take 1 [facility] Acetaminoph 1-12 le} capsule by it y of en-Caff 00:00: mouth [place] (FIORICET) 00 every 6 Medica l 50-300-40 (six) Branch mg per hours as capsule needed for Other (headache) . rizatriptan 2021-05 Yes [id number] 10mg Take 1 [facility] 10 mg 1-12 tablet by ity of tablet 00:00: mouth as [place] 00 needed for Medical Migraine. Branch May repeat in 2 hours if needed Butalbital- 2021-05 Yes [id number] 1{capsu Take 1 [facility] Acetaminoph 1-12 le} capsule by it y of en-Caff 00:00: mouth [place] (FIORICET) 00 every 6 Medica l 50-300-40 (six) Branch mg per hours as capsule needed for Other (headache) . rizatriptan 2021-05 Yes [id number] 10mg Take 1 [facility] 10 mg 1-12 tablet by ity of tablet 00:00: mouth as [place] 00 needed for Medical Migraine. Branch May repeat in 2 hours if needed Butalbital- 2021-05 Yes [id number] 1{capsu Take 1 [facility] Acetaminoph 1-12 le} capsule by it y of en-Caff 00:00: mouth [place] (FIORICET) 00 every 6 Medica l 50-300-40 (six) Branch mg per hours as capsule needed for Other (headache) . rizatriptan 2021-05 Yes [id number] 10mg Take 1 [facility] 10 mg 1-12 tablet by ity of tablet 00:00: mouth as [place] 00 needed for Medical Migraine. Branch May repeat in 2 hours if needed Butalbital- 2021-05 Yes [id number] 1{capsu Take 1 [facility] Acetaminoph 1-12 le} capsule by it y of en-Caff 00:00: mouth [place] (FIORICET) 00 every 6 Medica l 50-300-40 (six) Branch mg per hours as capsule needed for Other (headache) . rizatriptan 2021-05 Yes [id number] 10mg Take 1 [facility] 10 mg 1-12 tablet by ity of tablet 00:00: mouth as [place] 00 needed for Medical Migraine. Branch May repeat in 2 hours if needed Butalbital- 2021-05 Yes [id number] 1{capsu Take 1 [facility] Acetaminoph 1-12 le} capsule by it y of en-Caff 00:00: mouth [place] (FIORICET) 00 every 6 Medica l 50-300-40 (six) Branch mg per hours as capsule needed for Other (headache) . rizatriptan 2021-05 Yes [id number] 10mg Take 1 [facility] 10 mg 1-12 tablet by ity of tablet 00:00: mouth as [place] 00 needed for Medical Migraine. Branch May repeat in 2 hours if needed Butalbital- 2021-05 Yes [id number] 1{capsu Take 1 [facility] Acetaminoph 1-12 le} capsule by it y of en-Caff 00:00: mouth [place] (FIORICET) 00 every 6 Medica l 50-300-40 (six) Branch mg per hours as capsule needed for Other (headache) . rizatriptan 2021-05 Yes [id number] 10mg Take 1 [facility] 10 mg 1-12 tablet by ity of tablet 00:00: mouth as [place] 00 needed for Medical Migraine. Branch May repeat in 2 hours if needed Butalbital- 2021-05 Yes [id number] 1{capsu Take 1 [facility] Acetaminoph 1-12 le} capsule by it y of en-Caff 00:00: mouth [place] (FIORICET) 00 every 6 Medica l 50-300-40 (six) Branch mg per hours as capsule needed for Other (headache) . rizatriptan 2021-05 Yes [id number] 10mg Take 1 [facility] 10 mg 1-12 tablet by ity of tablet 00:00: mouth as [place] 00 needed for Medical Migraine. Branch May repeat in 2 hours if needed Butalbital- 2021-05 Yes [id number] 1{capsu Take 1 [facility] Acetaminoph 1-12 le} capsule by it y of en-Caff 00:00: mouth [place] (FIORICET) 00 every 6 Medica l 50-300-40 (six) Branch mg per hours as capsule needed for Other (headache) . rizatriptan 2021-05 Yes [id number] 10mg Take 1 [facility] 10 mg 1-12 tablet by ity of tablet 00:00: mouth as [place] 00 needed for Medical Migraine. Branch May repeat in 2 hours if needed Butalbital- 2021-05 Yes [id number] 1{capsu Take 1 [facility] Acetaminoph 1-12 le} capsule by it y of en-Caff 00:00: mouth [place] (FIORICET) 00 every 6 Medica l 50-300-40 (six) Branch mg per hours as capsule needed for Other (headache) . rizatriptan 2021-05 Yes [id number] 10mg Take 1 [facility] 10 mg 1-12 tablet by ity of tablet 00:00: mouth as [place] 00 needed for Medical Migraine. Branch May repeat in 2 hours if needed Butalbital- 2021-05 Yes [id number] 1{capsu Take 1 [facility] Acetaminoph 1-12 le} capsule by it y of en-Caff 00:00: mouth [place] (FIORICET) 00 every 6 Medica l 50-300-40 (six) Branch mg per hours as capsule needed for Other (headache) . rizatriptan 2021-05 Yes [id number] 10mg Take 1 [facility] 10 mg 1-12 tablet by ity of tablet 00:00: mouth as [place] 00 needed for Medical Migraine. Branch May repeat in 2 hours if needed Butalbital- 2021-05 Yes [id number] 1{capsu Take 1 [facility] Acetaminoph 1-12 le} [...] ONCE, 1 Medical 50 mcg dose, On Pending [facility] To [facility] 03/15/22 at 1030, Routine proMETHazin 2021-05 No 25mg 25 mg, Uni vers e 05-15 Oral, ity of (PHENERGAN) 14:45: 14:55 ONCE, 1 [place] 25 00 :00 dose, On Medica l mg [facility] 03/15/22 at 0945, [place] FENTanyl PF 2021-05 No 50ug 50 mcg, Un sushant (SUBLIMAZE 05-15 Slow IV ity o f (PF)) 14:45: 13:58 Push, [place] injection 00 :00 ONCE, 1 Medical 50 mcg dose, On Branch [facility] 03/15/22 at 0945, Routine ondansetron 2021-05 No 4mg 4 mg, Slow Univers (ZOFRAN 05-15 IV Push, ity of (PF)) 14:00: 13:58 ONCE, 1 [place] injection 4 00 :00 dose, On Medi yessi mg [facility] 03/15/22 at 0900, [place] ondansetron 2021-05 Yes [id number] 4mg Take 1 [facility] 4 mg -03 tablet by ity of disintegrat 00:00: mouth [place] ing tablet 00 every 8 Medica l (eight) Branch hours as needed for Nausea and Vomiting (N/V). ketorolac 2021-05 Yes [id number] 10mg Take 1 U nivers 10 mg -03 tablet by ity of tablet 00:00: mouth [place] 00 every 6 Medical (six) Branch hours as needed for Pain (scale 7-10). proMETHazin 2021-05 Yes [id number] 25mg Take 1 Univers e 25 mg 1-03 tablet by ity of tablet 00:00: mouth [place] 00 every 6 Medical (six) Branch hours as needed for N/V unresponsi ve to Ondansetro n. ondansetron 2021-05 Yes [id number] 4mg Take 1 [facility] 4 mg 1-03 tablet by ity of disintegrat 00:00: mouth [place] ing tablet 00 every 8 Medica l (eight) Branch hours as needed for Nausea and Vomiting (N/V). ketorolac 2021-05 Yes [id number] 10mg Take 1 U nivers 10 mg 1-03 tablet by ity of tablet 00:00: mouth [place] 00 every 6 Medical (six) Branch hours as needed for Pain (scale 7-10). proMETHazin 2021-05 Yes [id number] 25mg Take 1 Univers e 25 mg 1-03 tablet by ity of tablet 00:00: mouth [place] 00 every 6 Medical (six) Branch hours as needed for N/V unresponsi ve to Ondansetro n. carvediloL 2021-05 Yes [id number] 25mg Take 1 U nivers 25 mg 1-03 tablet by ity of tablet 00:00: mouth in [place] 00 the Medical morning Branch and 1 tablet in the evening. Take with meals. ondansetron 2021-05 Yes [id number] 4mg Take 1 [facility] 4 mg 1-03 tablet by ity of disintegrat 00:00: mouth [place] ing tablet 00 every 8 Medica l (eight) Branch hours as needed for Nausea and Vomiting (N/V). ketorolac 2021-05 Yes [id number] 10mg Take 1 U nivers 10 mg 1-03 tablet by ity of tablet 00:00: mouth [place] 00 every 6 Medical (six) Branch hours as needed for Pain (scale 7-10). proMETHazin 2021-05 Yes [id number] 25mg Take 1 Univers e 25 mg 1-03 tablet by ity of tablet 00:00: mouth [place] 00 every 6 Medical (six) Branch hours as needed for N/V unresponsi ve to Ondansetro n. carvediloL 2021-05 Yes [id number] 25mg Take 1 U nivers 25 mg 1-03 tablet by ity of tablet 00:00: mouth in [place] 00 the Medical morning Branch and 1 tablet in the evening. Take with meals. ondansetron 2021-05 Yes [id number] 4mg Take 1 [facility] 4 mg 1-03 tablet by ity of disintegrat 00:00: mouth [place] ing tablet 00 every 8 Medica l (eight) Branch hours as needed for Nausea and Vomiting (N/V). ketorolac 2021-05 Yes [id number] 10mg Take 1 U nivers 10 mg 1-03 tablet by ity of tablet 00:00: mouth [place] 00 every 6 Medical (six) Branch hours as needed for Pain (scale 7-10). proMETHazin 2021-05 Yes [id number] 25mg Take 1 Univers e 25 mg 1-03 tablet by ity of tablet 00:00: mouth [place] 00 every 6 Medical (six) Branch hours as needed for N/V unresponsi ve to Ondansetro n. carvediloL 2021-05 Yes [id number] 25mg Take 1 U nivers 25 mg 1-03 tablet by ity of tablet 00:00: mouth in [place] 00 the Medical morning Branch and 1 tablet in the evening. Take with meals. ondansetron 2021-05 Yes [id number] 4mg Take 1 [facility] 4 mg 1-03 tablet by ity of disintegrat 00:00: mouth [place] ing tablet 00 every 8 Medica l (eight) Branch hours as needed for Nausea and Vomiting (N/V). ketorolac 2021-05 Yes [id number] 10mg Take 1 U nivers 10 mg 1-03 tablet by ity of tablet 00:00: mouth [place] 00 every 6 Medical (six) Branch hours as needed for Pain (scale 7-10). proMETHazin 2021-05 Yes [id number] 25mg Take 1 Univers e 25 mg 1-03 tablet by ity of tablet 00:00: mouth [place] 00 every 6 Medical (six) Branch hours as needed for N/V unresponsi ve to Ondansetro n. carvediloL 2021-05 Yes [id number] 25mg Take 1 U nivers 25 mg 1-03 tablet by ity of tablet 00:00: mouth in [place] 00 the Medical morning Branch and 1 tablet in the evening. Take with meals. ondansetron 2021-05 Yes [id number] 4mg Take 1 [facility] 4 mg 1-03 tablet by ity of disintegrat 00:00: mouth [place] ing tablet 00 every 8 Medica l (eight) Branch hours as needed for Nausea and Vomiting (N/V). ketorolac 2021-05 Yes [id number] 10mg Take 1 U nivers 10 mg 1-03 tablet by ity of tablet 00:00: mouth [place] 00 every 6 Medical (six) Branch hours as needed for Pain (scale 7-10). proMETHazin 2021-05 Yes [id number] 25mg Take 1 Univers e 25 mg 1-03 tablet by ity of tablet 00:00: mouth [place] 00 every 6 Medical (six) Branch hours as needed for N/V unresponsi ve to Ondansetro n. carvediloL 2021-05 Yes [id number] 25mg Take 1 U nivers 25 mg 1-03 tablet by ity of tablet 00:00: mouth in [place] 00 the Medical morning Branch and 1 tablet in the evening. Take with meals. ondansetron 2021-05 Yes [id number] 4mg Take 1 [facility] 4 mg 1-03 tablet by ity of disintegrat 00:00: mouth [place] ing tablet 00 every 8 Medica l (eight) Branch hours as needed for Nausea and Vomiting (N/V). ketorolac 2021-05 Yes [id number] 10mg Take 1 U nivers 10 mg 1-03 tablet by ity of tablet 00:00: mouth [place] 00 every 6 Medical (six) Branch hours as needed for Pain (scale 7-10). proMETHazin 2021-05 Yes [id number] 25mg Take 1 Univers e 25 mg 1-03 tablet by ity of tablet 00:00: mouth [place] 00 every 6 Medical (six) Branch hours as needed for N/V unresponsi ve to Ondansetro n. carvediloL 2021-05 Yes [id number] 25mg Take 1 U nivers 25 mg 1-03 tablet by ity of tablet 00:00: mouth in [place] 00 the Medical morning Branch and 1 tablet in the evening. Take with meals. ondansetron 2021-05 Yes [id number] 4mg Take 1 [facility] 4 mg 1-03 tablet by ity of disintegrat 00:00: mouth [place] ing tablet 00 every 8 Medica l (eight) Branch hours as needed for Nausea and Vomiting (N/V). ketorolac 2021-05 Yes [id number] 10mg Take 1 U nivers 10 mg 1-03 tablet by ity of tablet 00:00: mouth [place] 00 every 6 Medical (six) Branch hours as needed for Pain (scale 7-10). proMETHazin 2021-05 Yes [id number] 25mg Take 1 Univers e 25 mg 1-03 tablet by ity of tablet 00:00: mouth [place] 00 every 6 Medical (six) Branch hours as needed for N/V unresponsi ve to Ondansetro n. carvediloL 2021-05 Yes [id number] 25mg Take 1 U nivers 25 mg 1-03 tablet by ity of tablet 00:00: mouth in [place] 00 the Medical morning Branch and 1 tablet in the evening. Take with meals. ondansetron 2021-05 Yes [id number] 4mg Take 1 [facility] 4 mg 1-03 tablet by ity of disintegrat 00:00: mouth [place] ing tablet 00 every 8 Medica l (eight) Branch hours as needed for Nausea and Vomiting (N/V). ketorolac 2021-05 Yes [id number] 10mg Take 1 U nivers 10 mg 1-03 tablet by ity of tablet 00:00: mouth [place] 00 every 6 Medical (six) Branch hours as needed for Pain (scale 7-10). proMETHazin 2021-05 Yes [id number] 25mg Take 1 Univers e 25 mg 1-03 tablet by ity of tablet 00:00: mouth [place] 00 every 6 Medical (six) Branch hours as needed for N/V unresponsi ve to Ondansetro n. carvediloL 2021-05 Yes [id number] 25mg Take 1 U nivers 25 mg 1-03 tablet by ity of tablet 00:00: mouth in [place] 00 the Medical morning Branch and 1 tablet in the evening. Take with meals. ondansetron 2021-05 Yes [id number] 4mg Take 1 [facility] 4 mg 1-03 tablet by ity of disintegrat 00:00: mouth [place] ing tablet 00 every 8 Medica l (eight) Branch hours as needed for Nausea and Vomiting (N/V). ketorolac 2021-05 Yes [id number] 10mg Take 1 U nivers 10 mg 1-03 tablet by ity of tablet 00:00: mouth [place] 00 every 6 Medical (six) Branch hours as needed for Pain (scale 7-10). proMETHazin 2021-05 Yes [id number] 25mg Take 1 Univers e 25 mg 1-03 tablet by ity of tablet 00:00: mouth [place] 00 every 6 Medical (six) Branch hours as needed for N/V unresponsi ve to Ondansetro n. carvediloL 2021-05 Yes [id number] 25mg Take 1 U nivers 25 mg 1-03 tablet by ity of tablet 00:00: mouth in [place] 00 the Medical morning Branch and 1 tablet in the evening. Take with meals. carvediloL 2021-05 Yes [id number] 25mg Take 1 U nivers 25 mg 1-03 tablet by ity of tablet 00:00: mouth in [place] 00 the Medical morning Branch and 1 tablet in the evening. Take with meals. carvediloL 2021-05 Yes [id number] 25mg Take 1 U nivers 25 mg 1-03 tablet by ity of tablet 00:00: mouth in [place] 00 the Medical morning Branch and 1 tablet in the evening. Take with meals. carvediloL 2021-05 Yes [id number] 25mg Take 1 U nivers 25 mg 1-03 tablet by ity of tablet 00:00: mouth in [place] 00 the Medical morning Branch and 1 tablet in the evening. Take with meals. carvediloL 2021-05 Yes [id number] 25mg Take 1 U nivers 25 mg 1-03 tablet by ity of tablet 00:00: mouth in [place] 00 the Medical morning Branch and 1 tablet in the evening. Take with meals. carvediloL 2021-05 Yes [id number] 25mg Take 1 U nivers 25 mg 1-03 tablet by ity of tablet 00:00: mouth in [place] 00 the Medical morning Branch and 1 tablet in the evening. Take with meals. carvediloL 2021-05 Yes [id number] 25mg Take 1 U nivers 25 mg 1-03 tablet by ity of tablet 00:00: mouth in [place] 00 the Medical morning Branch and 1 tablet in the evening. Take with meals. carvediloL 2021-05 Yes [id number] 25mg Take 1 U nivers 25 mg 1-03 tablet by ity of tablet 00:00: mouth in [place] [address] the Medical morning Branch and 1 tablet in the evening. Take with meals. carvediloL 2021-05 Yes [id number] 25mg Take 1 U nivers 25 mg 1-03 tablet by ity of tablet 00:00: mouth in [place] [address] the Medical morning Branch and 1 tablet in the evening. Take with meals. carvediloL 2021-05 Yes [id number] 25mg Take 1 U nivers 25 mg 1-03 tablet by ity of tablet 00:00: mouth in [place] [address] the Medical morning [place] and 1 tablet in the evening. Take with meals. carvediloL 2021-05 Yes [id number] 25mg Take 1 U nivers 25 mg 1-03 tablet by ity of tablet 00:00: mouth in [place] [address] the Medical morning [place] and 1 tablet in the evening. Take with meals. carvediloL 2021-05 Yes [id number] 25mg Take 1 U nivers 25 mg 1-03 tablet by ity of tablet 00:00: mouth in [place] [address] the Medical morning [place] and 1 tablet in the evening. Take with meals. carvediloL 2021-05 Yes [id number] 25mg Take 1 U nivers 25 mg 1-03 tablet by ity of tablet 00:00: mouth in [place] [address] the Medical morning [place] and 1 tablet in the evening. Take with meals. carvediloL 2021-05 Yes [id number] 25mg Take 1 U nivers 25 mg 1-03 tablet by ity of tablet 00:00: mouth in [place] [address] the Medical morning [place] and 1 tablet in the evening. Take with meals. carvediloL 2021-05 Yes [id number] 25mg Take 1 U nivers 25 mg 1-03 tablet by ity of tablet 00:00: mouth in [place] [address] the Medical morning [place] and 1 tablet in the evening. Take with meals. carvediloL 2021-05 Yes [id number] 25mg Take 1 U nivers 25 mg 1-03 tablet by ity of tablet 00:00: mouth in [place] [address] the Medical morning [place] and 1 tablet in the evening. Take with meals. carvediloL 2021-05 Yes [id number] 25mg Take 1 U nivers 25 mg 1-03 tablet by ity of tablet 00:00: mouth in [place] 00 the Medical morning Branch and 1 tablet in the evening. Take with meals. carvediloL 2021-05 Yes [id number] 25mg Take 1 U nivers 25 mg 1-03 tablet by ity of tablet 00:00: mouth in [place] 00 the Medical morning Branch and 1 tablet in the evening. Take with meals. carvediloL 2021-05 Yes [id number] 25mg Take 1 U nivers 25 mg 1-03 tablet by ity of tablet 00:00: mouth in [place] 00 the Medical morning Branch and 1 tablet in the evening. Take with meals. carvediloL 2021-05 Yes [id number] 25mg Take 1 U nivers 25 mg 1-03 tablet by ity of tablet 00:00: mouth in [place] 00 the Medical morning Branch and 1 tablet in the evening. Take with meals. carvediloL 2021-05 Yes [id number] 25mg Take 1 U nivers 25 mg 1-03 tablet by ity of tablet 00:00: mouth in [place] 00 the [facility] morning [place] and 1 tablet in the evening. Take with meals. carvediloL 2021-05 Yes [id number] 25mg Take 1 U nivers 25 mg 1-03 tablet by ity of tablet 00:00: mouth in [place] 00 the [facility] morning [place] and 1 tablet in the evening. Take with meals. carvediloL 2021-05- No [id number] 25mg Take 1 Univers 25 mg 1-03 04-26 tablet by ity of tablet 00:00: 00:00 mouth in [place] 00 :00 the [facility] morning [place] and 1 tablet in the evening. Take with meals. carvediloL 2021-05- No [id number] 25mg Take 1 Univers 25 mg 1-03 04-26 tablet by ity of tablet 00:00: 00:00 mouth in [place] 00 :00 the [facility] morning [place] and 1 tablet in the evening. Take with meals. ondansetron 2021-05- No [id number] 4mg Take 1 [facility] 4 mg 1-03 11-26 tablet by ity of disintegrat 00:00: 00:00 [place] 00 :00 every 8 Medica l (eight) Branch hours as needed for Nausea and Vomiting (N/V). ketorolac 2021-05- No [id number] 10mg Take 1 [facility] 10 mg 1-03 11-26 tablet by ity of tablet 00:00: 00:00 mouth [place] 00 :00 every 6 Medical (six) Branch hours as needed for Pain (scale 7-10). proMETHazin 2021-05- No [id number] 25mg Take 1 Univers e 25 mg 05-15 tablet by ity of tablet 00:00: 00:00 mouth [place] 00 :00 every 6 Medical (six) Branch hours as needed for N/V unresponsi ve to Ondansetro n. cephALEXin 2021-05- No [id number] 500mg Take 1 [facility] 500 mg 05-15 capsule by ity of capsule 00:00: 05:59 mouth 4 [place] 00 :00 (four) Medical times Branch daily for 3 days. cephALEXin 2021-05- No [id number] 500mg Take 1 [facility] 500 mg 05-15 capsule by ity of capsule 00:00: 05:59 mouth 4 [place] 00 :00 (four) Medical times Branch daily for 3 days. cephALEXin 2021-05- No [id number] 500mg Take 1 [facility] 500 mg 05-15 capsule by ity of capsule 00:00: 05:59 mouth 4 [place] 00 :00 (four) Medical times Branch daily for 3 days. predniSONE 2021-05- No [id number] 20mg Take 1 [facility] 20 mg 03-15 tablet by ity of tablet 00:00: 04:59 [...] IV ity of PF 16:00: 16:00 Push, [place] injection 00 :00 ONCE, 1 Medical 10 mg dose, On Branch 03/11/22 at 1100, 1 mL diphenhydrA 2021-05- No 25mg 25 mg, Uni vers MINE 0-30 10-30 Slow IV ity of (BENADRYL) 15:46: 16:00 Push, [place] injection 00 :00 ONCE, 1 Medical 25 mg dose, On [facility] 03/11/22 at 1100, STAT NaCl 0.9% 2021-05 No 1000mL at 999 Uni vers (NS) IV 0-30 10-30 mL/hr, ity of infusion 15:45: 16:04 [place]ven[place] 1,000 mL 00 :00 s, ONCE, 1 Medic al dose, On Branch [place] 03/11/22 at 1045, Routine butalbital- 2021-05- No [...] 00 :00 ONCE, 1 Medical dose, On [facility] 03/11/22 at 0945, [place] proMETHazin 2021-05 No 12.5mg 12.5 mg, Univers e 0-30 10-30 IV ity of (PHENERGAN) 14:45: 15:04 Piggyback, [place] 12.5 mg in 00 :00 ONCE, 1 Medica l NaCl 0.9% dose, On Branch (NS) 50 mL Sun IV 03/11/22 piggyback at 0945, [place] proMETHazin 2021-05 Yes [id number] 25mg Take 1 Univers e 25 mg 0-30 tablet by ity of tablet 00:00: mouth [place] 00 every 6 Medical (six) Branch hours as needed for Nausea and Vomiting (N/V). methocarbam 2021-05 Yes [id number] 500mg Take 1 Univers oL 500 mg 0-30 tablet by ity o f tablet 00:00: mouth 3 [place] 00 (three) Medical times Branch daily as needed for Pain (scale 7-10). proMETHazin 2021-05 Yes [id number] 25mg Take 1 Univers e 25 mg 0-30 tablet by ity of tablet 00:00: mouth [place] 00 every 6 Medical (six) Branch hours as needed for Nausea and Vomiting (N/V). methocarbam 2021-05 Yes [id number] 500mg Take 1 Univers oL 500 mg 0-30 tablet by ity o f tablet 00:00: mouth 3 [place] 00 (three) Medical times Branch daily as needed for Pain (scale 7-10). proMETHazin 2021-05 Yes [id number] 25mg Take 1 Univers e 25 mg 0-30 tablet by ity of tablet 00:00: mouth [place] 00 every 6 Medical (six) Branch hours as needed for Nausea and Vomiting (N/V). methocarbam 2021-05 Yes [id number] 500mg Take 1 Univers oL 500 mg 0-30 tablet by ity o f tablet 00:00: mouth 3 [place] 00 (three) Medical times Branch daily as needed for Pain (scale 7-10). proMETHazin 2021-05 Yes [id number] 25mg Take 1 Univers e 25 mg 0-30 tablet by ity of tablet 00:00: mouth [place] 00 every 6 Medical (six) Branch hours as needed for Nausea and Vomiting (N/V). methocarbam 2021-05 Yes [id number] 500mg Take 1 Univers oL 500 mg 0-30 tablet by ity o f tablet 00:00: mouth 3 [place] 00 (three) Medical times Branch daily as needed for Pain (scale 7-10). proMETHazin 2021-05 Yes [id number] 25mg Take 1 Univers e 25 mg 0-30 tablet by ity of tablet 00:00: mouth [place] 00 every 6 Medical (six) Branch hours as needed for Nausea and Vomiting (N/V). methocarbam 2021-05 Yes [id number] 500mg Take 1 Univers oL 500 mg 0-30 tablet by ity o f tablet 00:00: mouth 3 [place] 00 (three) Medical times Branch daily as needed for Pain (scale 7-10). proMETHazin 2021-05 Yes [id number] 25mg Take 1 Univers e 25 mg 0-30 tablet by ity of tablet 00:00: mouth [place] 00 every 6 Medical (six) Branch hours as needed for Nausea and Vomiting (N/V). methocarbam 2021-05 Yes [id number] 500mg Take 1 Univers oL 500 mg 0-30 tablet by ity o f tablet 00:00: mouth 3 [place] 00 (three) Medical times Branch daily as needed for Pain (scale 7-10). proMETHazin 2021-05 Yes [id number] 25mg Take 1 Univers e 25 mg 0-30 tablet by ity of tablet 00:00: mouth [place] 00 every 6 Medical (six) Branch hours as needed for Nausea and Vomiting (N/V). methocarbam 2021-05 Yes [id number] 500mg Take 1 Univers oL 500 mg 0-30 tablet by ity o f tablet 00:00: mouth 3 [place] 00 (three) Medical times Branch daily as needed for Pain (scale 7-10). proMETHazin 2021-05 Yes [id number] 25mg Take 1 Univers e 25 mg 0-30 tablet by ity of tablet 00:00: mouth [place] 00 every 6 Medical (six) Branch hours as needed for Nausea and Vomiting (N/V). methocarbam 2021-05 Yes [id number] 500mg Take 1 Univers oL 500 mg 0-30 tablet by ity o f tablet 00:00: mouth 3 00 (three) Medical times Branch daily as needed for Pain (scale 7-10). proMETHazin 2021-05 Yes [id number] 25mg Take 1 Univers e 25 mg 0-30 tablet by ity of tablet 00:00: mouth [place] 00 every 6 Medical (six) Branch hours as needed for Nausea and Vomiting (N/V). methocarbam 2021-05 Yes [id number] 500mg Take 1 Univers oL 500 mg 0-30 tablet by ity o f tablet 00:00: mouth 3 00 (three) Medical times Branch daily as needed for Pain (scale 7-10). proMETHazin 2021-05 Yes [id number] 25mg Take 1 Univers e 25 mg 0-30 tablet by ity of tablet 00:00: mouth [place] 00 every 6 Medical (six) Branch hours as needed for Nausea and Vomiting (N/V). methocarbam 2021-05 Yes [id number] 500mg Take 1 Univers oL 500 mg 0-30 tablet by ity o f tablet 00:00: mouth 3 [place] 00 (three) Medical times Branch daily as needed for Pain (scale 7-10). proMETHazin 2021-05 Yes [id number] 25mg Take 1 [facility] e 25 mg 0-30 tablet by ity of tablet 00:00: mouth [place] 00 every 6 Medical (six) Branch hours as needed for Nausea and Vomiting (N/V). methocarbam 2021-05 Yes [id number] 500mg Take 1 [facility] oL 500 mg 0-30 tablet by ity o f tablet 00:00: mouth 3 [place] 00 (three) Medical times Branch daily as needed for Pain (scale 7-10). proMETHazin 2021-05 Yes [id number] 25mg Take 1 [facility] e 25 mg 0-30 tablet by ity of tablet 00:00: mouth [place] 00 every 6 Medical (six) Branch hours as needed for Nausea and Vomiting (N/V). proMETHazin 2021-05 Yes [id number] 25mg Take 1 [facility] e 25 mg 0-30 tablet by ity of tablet 00:00: mouth [place] 00 every 6 Medical (six) Branch hours as needed for Nausea and Vomiting (N/V). proMETHazin 2021-05 Yes [id number] 25mg Take 1 [facility] e 25 mg 0-30 tablet by ity of tablet 00:00: mouth [place] 00 every 6 Medical (six) Branch hours as needed for Nausea and Vomiting (N/V). proMETHazin 2021-05 Yes [id number] 25mg Take 1 [facility] e 25 mg 0-30 tablet by ity of tablet 00:00: mouth [place] 00 every 6 Medical (six) Branch hours as needed for Nausea and Vomiting (N/V). proMETHazin 2021-05 Yes [id number] 25mg Take 1 [facility] e 25 mg 0-30 tablet by ity of tablet 00:00: mouth [place] 00 every 6 Medical (six) Branch hours as needed for Nausea and Vomiting (N/V). proMETHazin 2021-05 Yes [id number] 25mg Take 1 [facility] e 25 mg 0-30 tablet by ity of tablet 00:00: mouth [place] 00 every 6 Medical (six) Branch hours as needed for Nausea and Vomiting (N/V). proMETHazin 2021-05 Yes [id number] 25mg Take 1 [facility] e 25 mg 0-30 tablet by ity of tablet 00:00: mouth [place] 00 every 6 Medical (six) Branch hours as needed for Nausea and Vomiting (N/V). proMETHazin 2021-05 Yes [id number] 25mg Take 1 [facility] e 25 mg 0-30 tablet by ity of tablet 00:00: mouth [place] 00 every 6 Medical (six) Branch hours as needed for Nausea and Vomiting (N/V). proMETHazin 2021-05 Yes [id number] 25mg Take 1 [facility] e 25 mg 0-30 tablet by ity of tablet 00:00: mouth [place] 00 every 6 Medical (six) Branch hours as needed for Nausea and Vomiting (N/V). proMETHazin 2021-05 Yes [id number] 25mg Take 1 [facility] e 25 mg 0-30 tablet by ity of tablet 00:00: mouth [place] 00 every 6 Medical (six) Branch hours as needed for Nausea and Vomiting (N/V). proMETHazin 2021-05 Yes [id number] 25mg Take 1 [facility] e 25 mg 0-30 tablet by ity of tablet 00:00: mouth [place] 00 every 6 Medical (six) Branch hours as needed for Nausea and Vomiting (N/V). proMETHazin 2021-05 Yes [id number] 25mg Take 1 [facility] e 25 mg 0-30 tablet by ity of tablet 00:00: mouth [place] 00 every 6 Medical (six) Branch hours as needed for Nausea and Vomiting (N/V). proMETHazin 2021-05 Yes [id number] 25mg Take 1 [facility] e 25 mg 0-30 tablet by ity of tablet 00:00: mouth [place] 00 every 6 Medical (six) Branch hours as needed for Nausea and Vomiting (N/V). proMETHazin 2021-05 Yes [id number] 25mg Take 1 [facility] e 25 mg 0-30 tablet by ity of tablet 00:00: mouth [place] 00 every 6 Medical (six) Branch hours as needed for Nausea and Vomiting (N/V). proMETHazin 2021-05 Yes [id number] 25mg Take 1 [facility] e 25 mg 0-30 tablet by ity of tablet 00:00: mouth [place] 00 every 6 Medical (six) Branch hours as needed for Nausea and Vomiting (N/V). proMETHazin 2021-05 Yes [id number] 25mg Take 1 [facility] e 25 mg 0-30 tablet by ity of tablet 00:00: mouth [place] 00 every 6 Medical (six) Branch hours as needed for Nausea and Vomiting (N/V). proMETHazin 2021-05 Yes [id number] 25mg Take 1 [facility] e 25 mg 0-30 tablet by ity of tablet 00:00: mouth [place] 00 every 6 Medical (six) Branch hours as needed for Nausea and Vomiting (N/V). proMETHazin 2021-05- No [id number] 25mg Take 1 [facility] e 25 mg 0-30 03-21 tablet by ity of tablet 00:00: 00:00 mouth [place] 00 :00 every 6 Medical (six) Branch hours as needed for Nausea and Vomiting (N/V). methocarbam 2021-05- No [id number] 500mg Take 1 [facility] oL 500 mg 0-30 11-26 tablet by ity of tablet 00:00: 00:00 mouth 3 [place] 00 :00 (three) Medical times Branch daily as needed for Pain (scale 7-10). topiramate 2021-05 Yes [id number] 100mg Take 4 [facility] 25 mg 0-21 tablets by ity of tablet 00:00: mouth in [place] the Medical morning. [place] topiramate 2021-05 Yes [id number] 100mg Take 4 [facility] 25 mg 0-21 tablets by ity of tablet 00:00: mouth in [place] the Medical morning. [place] topiramate 2021-05 Yes [id number] 100mg Take 4 [facility] 25 mg 0-21 tablets by ity of tablet 00:00: mouth in [place] the Medical morning. [place] topiramate 2021-05 Yes [id number] 100mg Take 4 [facility] 25 mg 0-21 tablets by ity of tablet 00:00: mouth in [place] the Medical morning. [place] topiramate 2021-05 Yes [id number] 100mg Take 4 [facility] 25 mg 0-21 tablets by ity of tablet 00:00: mouth in [place] the Medical morning. [place] topiramate 2021-05 Yes [id number] 100mg Take 4 [facility] 25 mg 0-21 tablets by ity of tablet 00:00: mouth in [place] the Medical morning. Branch topiramate 2021-05 Yes [id number] 100mg Take 4 [facility] 25 mg 0-21 tablets by ity of tablet 00:00: mouth in [place] the Medical morning. [place] topiramate 2021-05 Yes [id number] 100mg Take 4 [facility] 25 mg 0-21 tablets by ity of tablet 00:00: mouth in [place] 00 the Medical morning. Branch topiramate 2-1 Yes [id number] 100mg Take 4 [facility] 25 mg 0-21 tablets by ity of tablet 00:00: mouth in [place] the Medical morning. Branch topiramate 2-1 Yes [id number] 100mg Take 4 [facility] 25 mg 0-21 tablets by ity of tablet 00:00: mouth in [place] the Medical morning. Branch topiramate 2-1 Yes [id number] 100mg Take 4 [facility] 25 mg 0-21 tablets by ity of tablet 00:00: mouth in [place] the Medical morning. Branch topiramate 2-1 Yes [id number] 100mg Take 4 [facility] 25 mg 0-21 tablets by ity of tablet 00:00: mouth in [place] the Medical morning. Branch topiramate 2-1 Yes [id number] 100mg Take 4 [facility] 25 mg 0-21 tablets by ity of tablet 00:00: mouth in [place] the Medical morning. Branch topiramate 2021-1 Yes [id number] 100mg Take 4 [facility] 25 mg 0-21 tablets by ity of tablet 00:00: mouth in [place] the Medical morning. Branch topiramate 2-1 Yes [id number] 100mg Take 4 [facility] 25 mg 0-21 tablets by ity of tablet 00:00: mouth in [place] the Medical morning. Branch topiramate 2-1 Yes [id number] 100mg Take 4 [facility] 25 mg 0-21 tablets by ity of tablet 00:00: mouth in [place] the Medical morning. Branch topiramate 2-1 Yes [id number] 100mg Take 4 [facility] 25 mg 0-21 tablets by ity of tablet 00:00: mouth in [place] the Medical morning. Branch topiramate 2-1 Yes [id number] 100mg Take 4 [facility] 25 mg 0-21 tablets by ity of tablet 00:00: mouth in [place] the Medical morning. Branch topiramate 2022-1 Yes [id number] 100mg Take 4 [facility] 25 mg 0-21 tablets by ity of tablet 00:00: mouth in [place] 00 the Medical morning. Branch topiramate 2022-1 Yes [id number] 100mg Take 4 [facility] 25 mg 0-21 tablets by ity of tablet 00:00: mouth in [place] 00 the Medical morning. Branch topiramate 2022-1 Yes [id number] 100mg Take 4 [facility] 25 mg 0-21 tablets by ity of tablet 00:00: mouth in [place] the Medical morning. Branch topiramate 2021-1 Yes [id number] 100mg Take 4 [facility] 25 mg 0-21 tablets by ity of tablet 00:00: mouth in [place] the Medical morning. Branch topiramate 2021-1 Yes [id number] 100mg Take 4 [facility] 25 mg 0-21 tablets by ity of tablet 00:00: mouth in [place] the Medical morning. Branch topiramate 2021-1 Yes [id number] 100mg Take 4 [facility] 25 mg 0-21 tablets by ity of tablet 00:00: mouth in [place] the Medical morning. Branch topiramate 2021-1 Yes [id number] 100mg Take 4 [facility] 25 mg 0-21 tablets by ity of tablet 00:00: mouth in [place] the Medical morning. Branch topiramate 2021-1 Yes [id number] 100mg Take 4 [facility] 25 mg 0-21 tablets by ity of tablet 00:00: mouth in [place] the Medical morning. Branch topiramate 2021- Yes [id number] 100mg Take 4 [facility] 25 mg 0-21 tablets by ity of tablet 00:00: mouth in [place] the Medical morning. Branch topiramate 2021- Yes [id number] 100mg Take 4 [facility] 25 mg 0-21 tablets by ity of tablet 00:00: mouth in [place] the Medical morning. Branch topiramate 2021-1 Yes [id number] 100mg Take 4 [facility] 25 mg 0-21 tablets by ity of tablet 00:00: mouth in [place] the Medical morning. Branch topiramate 2-1 Yes [id number] 100mg Take 4 [facility] 25 mg 0-21 tablets by ity of tablet 00:00: mouth in [place] the Medical morning. Branch topiramate 2-1 Yes [id number] 100mg Take 4 [facility] 25 mg 0-21 tablets by ity of tablet 00:00: mouth in [place] the Medical morning. Branch topiramate 2-1 Yes [id number] 100mg Take 4 [facility] 25 mg 0-21 tablets by ity of tablet 00:00: mouth in [place] the Medical morning. Branch topiramate 2021-1 Yes [id number] 100mg Take 4 [facility] 25 mg 0-21 tablets by ity of tablet 00:00: mouth in [place] 00 the Medical morning. Branch topiramate 2021-05 Yes [id number] 100mg Take 4 [facility] 25 mg 0-21 tablets by ity of tablet 00:00: mouth in [place] 00 the Medical morning. Branch topiramate 2021-05 Yes [id number] 100mg Take 4 [facility] 25 mg 0-21 tablets by ity of tablet 00:00: mouth in [place] 00 the Medical morning. Branch topiramate 2021- Yes [id number] 100mg Take 4 [facility] 25 mg 0-21 tablets by ity of tablet 00:00: mouth in [place] 00 the Medical morning. Branch topiramate 2021-05 Yes [id number] 100mg Take 4 [facility] 25 mg 0-21 tablets by ity of tablet 00:00: mouth in [place] 00 the Medical morning. Branch topiramate 2021- Yes [id number] 100mg Take 4 [facility] 25 mg 0-21 tablets by ity of tablet 00:00: mouth in [place] 00 the Medical morning. Branch topiramate 2021- Yes [id number] 100mg Take 4 [facility] 25 mg 0-21 tablets by ity of tablet 00:00: mouth in [place] the Medical morning. Branch topiramate 2021-05 Yes [id number] 100mg Take 4 [facility] 25 mg 0-21 [...] 28 :00 Medical Branch albuterol 2021-05 Yes [id number] 2{puff} Inhale 2 [facility] 90 0-18 Puffs ity of mcg/actuati 00:00: every 6 [place] as on inhaler 00 (six) Medical hours as Branch needed for Wheezing or Shortness of Breath. albuterol 2021-05 Yes [id number] 2{puff} Inhale 2 [facility] 90 0-18 Puffs ity of mcg/actuati 00:00: every 6 [place] as on inhaler 00 (six) Medical hours as Branch needed for Wheezing or Shortness of Breath. albuterol 2021-05 Yes [id number] 2{puff} Inhale 2 [facility] 90 0-18 Puffs ity of mcg/actuati 00:00: every 6 [place] as on inhaler 00 (six) Medical hours as Branch needed for Wheezing or Shortness of Breath. albuterol 2021-05 Yes [id number] 2{puff} Inhale 2 [facility] 90 0-18 Puffs ity of mcg/actuati 00:00: every 6 [place] on inhaler 00 (six) Medical hours as Branch needed for Wheezing or Shortness of Breath. albuterol 2021-05 Yes [id number] 2{puff} Inhale 2 [facility] 90 0-18 Puffs ity of mcg/actuati 00:00: every 6 [place] on inhaler 00 (six) Medical hours as Branch needed for Wheezing or Shortness of Breath. albuterol 2021-05 Yes [id number] 2{puff} Inhale 2 [facility] 90 0-18 Puffs ity of mcg/actuati 00:00: every 6 [place] on inhaler 00 (six) Medical hours as Branch needed for Wheezing or Shortness of Breath. albuterol 2021-05 Yes [id number] 2{puff} Inhale 2 [facility] 90 0-18 Puffs ity of mcg/actuati 00:00: every 6 [place] on inhaler 00 (six) Medical hours as Branch needed for Wheezing or Shortness of Breath. albuterol 2021-05 Yes [id number] 2{puff} Inhale 2 [facility] 90 0-18 Puffs ity of mcg/actuati 00:00: every 6 [place] on inhaler 00 (six) Medical hours as Branch needed for Wheezing or Shortness of Breath. albuterol 2021-05 Yes [id number] 2{puff} Inhale 2 [facility] 90 0-18 Puffs ity of mcg/actuati 00:00: every 6 [place] on inhaler 00 (six) Medical hours as Branch needed for Wheezing or Shortness of Breath. albuterol 2021-05 Yes [id number] 2{puff} Inhale 2 [facility] 90 0-18 Puffs ity of mcg/actuati 00:00: every 6 [place] as on inhaler 00 (six) Medical hours as Branch needed for Wheezing or Shortness of Breath. albuterol 2021-05 Yes [id number] 2{puff} Inhale 2 [facility] 90 0-18 Puffs ity of mcg/actuati 00:00: every 6 [place] on inhaler 00 (six) Medical hours as Branch needed for Wheezing or Shortness of Breath. albuterol 2021-05 Yes [id number] 2{puff} Inhale 2 [facility] 90 0-18 Puffs ity of mcg/actuati 00:00: every 6 [place] on inhaler 00 (six) Medical hours as Branch needed for Wheezing or Shortness of Breath. albuterol 2021-05 Yes [id number] 2{puff} Inhale 2 [facility] 90 0-18 Puffs ity of mcg/actuati 00:00: every 6 [place] on inhaler 00 (six) Medical hours as Branch needed for Wheezing or Shortness of Breath. albuterol 2021-05 Yes [id number] 2{puff} Inhale 2 [facility] 90 0-18 Puffs ity of mcg/actuati 00:00: every 6 [place] on inhaler 00 (six) Medical hours as Branch needed for Wheezing or Shortness of Breath. albuterol 2021-05 Yes [id number] 2{puff} Inhale 2 [facility] 90 0-18 Puffs ity of mcg/actuati 00:00: every 6 [place] on inhaler 00 (six) Medical hours as Branch needed for Wheezing or Shortness of Breath. albuterol 2021-05 Yes [id number] 2{puff} Inhale 2 [facility] 90 0-18 Puffs ity of mcg/actuati 00:00: every 6 [place] on inhaler 00 (six) Medical hours as Branch needed for Wheezing or Shortness of Breath. albuterol 2021-05 Yes [id number] 2{puff} Inhale 2 [facility] 90 0-18 Puffs ity of mcg/actuati 00:00: every 6 [place] on inhaler 00 (six) Medical hours as Branch needed for Wheezing or Shortness of Breath. albuterol 2021-05 Yes [id number] 2{puff} Inhale 2 [facility] 90 0-18 Puffs ity of mcg/actuati 00:00: every 6 [place] on inhaler 00 (six) Medical hours as Branch needed for Wheezing or Shortness of Breath. albuterol 2021-05 Yes [id number] 2{puff} Inhale 2 [facility] 90 0-18 Puffs ity of mcg/actuati 00:00: every 6 [place] on inhaler 00 (six) Medical hours as Branch needed for Wheezing or Shortness of Breath. albuterol 2021-05 Yes [id number] 2{puff} Inhale 2 [facility] 90 0-18 Puffs ity of mcg/actuati 00:00: every 6 [place] on inhaler 00 (six) Medical hours as Branch needed for Wheezing or Shortness of Breath. albuterol 2021-05 Yes [id number] 2{puff} Inhale 2 [facility] 90 0-18 Puffs ity of mcg/actuati 00:00: every 6 [place] on inhaler 00 (six) Medical hours as Branch needed for Wheezing or Shortness of Breath. albuterol 2021-05 Yes [id number] 2{puff} Inhale 2 [facility] 90 0-18 Puffs ity of mcg/actuati 00:00: every 6 [place] on inhaler 00 (six) Medical hours as Branch needed for Wheezing or Shortness of Breath. albuterol 2021-05 Yes [id number] 2{puff} Inhale 2 [facility] 90 0-18 Puffs ity of mcg/actuati 00:00: every 6 [place] on inhaler 00 (six) Medical hours as Branch needed for Wheezing or Shortness of Breath. albuterol 2021-05 Yes [id number] 2{puff} Inhale 2 [facility] 90 0-18 Puffs ity of mcg/actuati 00:00: every 6 [place] on inhaler 00 (six) Medical hours as Branch needed for Wheezing or Shortness of Breath. albuterol 2021-05 Yes [id number] 2{puff} Inhale 2 [facility] 90 0-18 Puffs ity of mcg/actuati 00:00: every 6 [place] on inhaler 00 (six) Medical hours as Branch needed for Wheezing or Shortness of Breath. albuterol 2021-05 Yes [id number] 2{puff} Inhale 2 [facility] 90 0-18 Puffs ity of mcg/actuati 00:00: every 6 [place] on inhaler 00 (six) Medical hours as Branch needed for Wheezing or Shortness of Breath. albuterol 2021-05 Yes [id number] 2{puff} Inhale 2 [facility] 90 0-18 Puffs ity of mcg/actuati 00:00: every 6 [place] on inhaler 00 (six) Medical hours as Branch needed for Wheezing or Shortness of Breath. albuterol 2021-05 Yes [id number] 2{puff} Inhale 2 [facility] 90 0-18 Puffs ity of mcg/actuati 00:00: every 6 [place] on inhaler 00 (six) Medical hours as Branch needed for Wheezing or Shortness of Breath. albuterol 2021-05 Yes [id number] 2{puff} Inhale 2 [facility] 90 0-18 Puffs ity of mcg/actuati 00:00: every 6 [place] on inhaler 00 (six) Medical hours as Branch needed for Wheezing or Shortness of Breath. albuterol 2021-05 Yes [id number] 2{puff} Inhale 2 [facility] 90 0-18 Puffs ity of mcg/actuati 00:00: every 6 [place] on inhaler 00 (six) Medical hours as Branch needed for Wheezing or Shortness of Breath. albuterol 2021-05 Yes [id number] 2{puff} Inhale 2 [facility] 90 0-18 Puffs ity of mcg/actuati 00:00: every 6 [place] on inhaler 00 (six) Medical hours as Branch needed for Wheezing or Shortness of Breath. albuterol 2021-05 Yes [id number] 2{puff} Inhale 2 [facility] 90 0-18 Puffs ity of mcg/actuati 00:00: every 6 [place] on inhaler 00 (six) Medical hours as Branch needed for Wheezing or Shortness of Breath. albuterol 2021-05 Yes [id number] 2{puff} Inhale 2 [facility] 90 0-18 Puffs ity of mcg/actuati 00:00: every 6 [place] as on inhaler 00 (six) Medical hours as Branch needed for Wheezing or Shortness of Breath. albuterol 2021-05 Yes [id number] 2{puff} Inhale 2 [facility] 90 0-18 Puffs ity of mcg/actuati 00:00: every 6 [place] on inhaler 00 (six) Medical hours as Branch needed for Wheezing or Shortness of Breath. albuterol 2021-05 Yes [id number] 2{puff} Inhale 2 [facility] 90 0-18 Puffs ity of mcg/actuati 00:00: every 6 [place] on inhaler 00 (six) Medical hours as Branch needed for Wheezing or Shortness of Breath. albuterol 2021-05 Yes [id number] 2{puff} Inhale 2 [facility] 90 0-18 Puffs ity of mcg/actuati 00:00: every 6 [place] on inhaler 00 (six) Medical hours as Branch needed for Wheezing or Shortness of Breath. albuterol 2021-05 Yes [id number] 2{puff} Inhale 2 [facility] 90 0-18 Puffs ity of mcg/actuati 00:00: every 6 [place] on inhaler 00 (six) Medical hours as Branch needed for Wheezing or Shortness of Breath. albuterol 2021-05 Yes [id number] 2{puff} Inhale 2 [facility] 90 0-18 Puffs ity of mcg/actuati 00:00: every 6 [place] on inhaler 00 (six) Medical hours as Branch needed for Wheezing or Shortness of Breath. albuterol 2021-05 Yes [id number] 2{puff} Inhale 2 [facility] 90 0-18 Puffs ity of mcg/actuati 00:00: every 6 [place] on inhaler 00 (six) Medical hours as Branch needed for Wheezing or Shortness of Breath. albuterol 2021-05 Yes [id number] 2{puff} Inhale 2 [facility] 90 0-18 Puffs ity of mcg/actuati 00:00: every 6 [place] on inhaler 00 (six) Medical hours as Branch needed for Wheezing or Shortness of Breath. albuterol 2021-05 Yes [id number] 2{puff} Inhale 2 [facility] 90 0-18 Puffs ity of mcg/actuati 00:00: every 6 [place] on inhaler 00 (six) Medical hours as Branch needed for Wheezing or Shortness of Breath. albuterol 2021-05 Yes [id number] 2{puff} Inhale 2 [facility] 90 0-18 Puffs ity of mcg/actuati 00:00: every 6 [place] on inhaler 00 (six) Medical hours as Branch needed for Wheezing or Shortness of Breath. albuterol 2021-05 Yes [id number] 2{puff} Inhale 2 [facility] 90 0-18 Puffs ity of mcg/actuati 00:00: every 6 [place] on inhaler 00 (six) Medical hours as Branch needed for Wheezing or Shortness of Breath. albuterol 2021-05 Yes [id number] 2{puff} Inhale 2 [facility] 90 0-18 Puffs ity of mcg/actuati 00:00: every 6 [place] on inhaler 00 (six) Medical hours as Branch needed for Wheezing or Shortness of Breath. albuterol 2021-05 Yes [id number] 2{puff} Inhale 2 [facility] 90 0-18 Puffs [...] a 24 hour period. benzonatate 2021-05- No [id number] 200mg Take 1 [facility] 200 mg 0-18 10-26 capsule by ity of capsule 00:00: 04:59 mouth 3 [place] 00 :00 (three) Medical times Branch daily as needed for Cough for up to 7 days. benzonatate 2021-05- No [id number] 200mg Take 1 [facility] 200 mg 0-18 10-26 capsule by ity of capsule 00:00: 04:59 mouth 3 [place] 00 :00 (three) Medical times Branch daily as needed for Cough for up to 7 days. benzonatate 2021-05- No [id number] 200mg Take 1 [facility] 200 mg 0-18 10-26 capsule by ity of capsule 00:00: 04:59 mouth 3 [place] 00 :00 (three) Medical times Branch daily as needed for Cough for up to 7 days. benzonatate 2021-05- No [id number] 200mg Take 1 [facility] 200 mg 0-18 10-26 capsule by ity of capsule 00:00: 04:59 mouth 3 [place] 00 :00 (three) Medical times Branch daily as needed for Cough for up to 7 days. benzonatate 2021-05 No [id number] 200mg Take 1 [facility] 200 mg 0-18 10-26 capsule by ity of capsule 00:00: 04:59 mouth 3 [place] 00 :00 (three) Medical times Branch daily as needed for Cough for up to 7 days. benzonatate 2021-05 No [id number] 200mg Take 1 [facility] 200 mg 0-18 - capsule by ity of capsule 00:00: 04:59 mouth 3 [place] 00 :00 (three) Medical times Branch daily as needed for Cough for up to 7 days. SUMAtriptan 2021-05 No [id number] 50mg Take 1 [facility] 50 mg 0-18 - 9105 tablet by ity of tablet 00:00: 04:59 mouth [place] 00 :[place] now for 1 Medical dose. [place] SUMAtriptan 2021-05 No [id number] 50mg Take 1 [facility] 50 mg 0-18 - 9105 tablet by ity of tablet 00:00: 04:59 mouth [place] 00 :[place] now for 1 Medical dose. Branch butalbital- 2021-05- No 1{tbl} 1 tablet, [facility] acetaminoph 0-12 10-12 Oral, ity of en-caff 08:15: 08:09 ONCE, 1 [place] (ESGIC) 00 :00 dose, On Medical 50-325-40 Sat Branch mg tablet 1 02/21/22 tablet at [...] Medical Infusion, Branch ONCE, 1 dose, On Sat02/21/22 at 0215, [place] proMETHazin 2021-05- No 12.5mg [...] IV ity of PF 06:30: 06:38 [place], [place] injection 00 :00 ONCE, 1 Medical 10 mg dose, On Branch Sat02/21/22 at 0130, 1 mL ketorolac 2021-05 No 15mg 15 mg, Unive rs (TORADOL) 002-21 Slow IV ity of injection 06:30: 06:38 [place], [place] 15 mg 00 :00 ONCE, 1 Medical dose, On Branch 02/21/22 at 0130, [place] diphenhydrA 2021-05 No 25mg 25 mg, Uni vers MINE 02-21 Slow IV ity of (BENADRYL) 06:30: 06:38 [place], [place] injection 00 :00 ONCE, 1 Medical 25 mg dose, On Branch 02/21/22 at 0130, [place] FENTanyl PF 2021-05 No 50ug 50 mcg, Un sushant (SUBLIMAZE 002-18 Slow IV ity o f (PF)) 20:30: 19:44 [place], [place] injection 00 :00 ONCE, 1 Medical 50 mcg dose, On Branch 02/18/22 at 1530, Routine ketorolac 2021-05- No 30mg 30 mg, Unive rs (TORADOL) 002-18 Slow IV ity of injection 20:15: 20:09 [place], [place] 30 mg 00 :00 ONCE, 1 Medical dose, On Branch 02/18/22 at 1515, [place] iopamidol 2021-05- No [id number] 60mL 60 mL, Un sushant (ISOVUE 002-18 Intravenou ity o f 370-500 mL) 19:30: 17:30 s, ONCE, 1 [place] injection 00 :00 dose, On Medica l 60 mL [place] Branch 02/18/22 at 1430, Routine proMETHazin 2021-05 No 12.5mg 12.5 mg, Univers e 02-18 IV ity of (PHENERGAN) 18:15: 18:19 [place], [place] 12.5 mg in 00 :00 ONCE, 1 Medica l NaCl 0.9% dose, On Branch (NS) 50 mL [place] IV 02/18/22 at piggyback 1315, [place] FENTanyl PF 2021-05 No 50ug 50 mcg, Un sushant (SUBLIMAZE 02-18 Slow IV ity o f (PF)) 18:00: 17:26 [place], [place] injection 00 :00 ONCE, 1 Medical 50 mcg dose, On Branch [place] 02/18/22 at 1300, Routine ondansetron 2021-05 No 4mg 4 mg, Slow [facility] (ZOFRAN 02-18 IV [place], ity of (PF)) 17:15: 17:27 ONCE, 1 [place] injection 4 00 :00 dose, On Medi yessi mg [facility] 02/18/22 at 1215, [place] morpHINE (2 No 4mg 4 mg, Slow Univers mg/mL) 01-18 IV [place], ity of injection 4 15:15: 14:49 ONCE, 1 [place] mg 00 :00 dose, On [facility] 01/18/22 Branch at 1015, STAT ondansetron 2021- No 4mg 4 mg, Slow Univers (ZOFRAN 01-18 IV [place], ity of (PF)) 13:30: 13:33 ONCE, 1 [place] injection 4 00 :00 dose, On Medi yessi mg [facility] 01/18/22 Branch at 0830, [place] morpHINE (4 2021- No 4mg 4 mg, Slow [facility] mg/mL) 01-18 IV [place], ity of injection 4 13:30: 13:34 ONCE, 1 [place] mg 00 :00 dose, On [facility] 01/18/22 Branch at 0830, STAT morpHINE (4 0 2021- No 4mg 4 [...] Branch at 0630, [place] iodixanoL 2021- No [id number] 80mL 80 mL, U nivers (VISIPAQUE 01-18 [...] Indication s: acute pain ondansetron 2022-0 Yes [id number] 4mg Take 1 [facility] 4 mg 9-08 [id number] tablet by ity of disintegrat 00:00: mouth [place] ing tablet 00 every 8 Medica l (eight) Branch hours as needed for Nausea and Vomiting (N/V). ibuprofen 2022-0 Yes [id number] 600mg Take 1 [facility] 600 mg 9-08 [id number] tablet by ity of tablet 00:00: mouth [place] 00 every 6 Medical (six) Branch hours as needed for Pain (scale 4-6). traMADoL 50 2021-0 Yes [id number] 50mg Take 1 Univ ers mg tablet 9-08 tablet by ity o f 00:00: mouth [place] 00 every 6 Medical (six) Branch hours as needed for Pain (scale 7-10). Indication s: acute pain ondansetron 2022-0 Yes [id number] 4mg Take 1 [facility] 4 mg 9-08 [id number] tablet by ity of disintegrat 00:00: mouth [place] ing tablet 00 every 8 Medica l (eight) Branch hours as needed for Nausea and Vomiting (N/V). ibuprofen 2022-0 Yes [id number] 600mg Take 1 [facility] 600 mg 9-08 [id number] tablet by ity of tablet 00:00: mouth [place] 00 every 6 Medical (six) Branch hours as needed for Pain (scale 4-6). traMADoL 50 2022-0 Yes [id number] 50mg Take 1 [facility] mg tablet 9-08 tablet by ity o f 00:00: mouth [place] 00 every 6 Medical (six) Branch hours as needed for Pain (scale 7-10). Indication s: acute pain ondansetron 2022-0 Yes [id number] 4mg Take 1 [facility] 4 mg 9-08 [id number] tablet by ity of disintegrat 00:00: mouth [place] ing tablet 00 every 8 Medica l (eight) Branch hours as needed for Nausea and Vomiting (N/V). ibuprofen 2022-0 Yes [id number] 600mg Take 1 [facility] 600 mg 9-08 [id number] tablet by ity of tablet 00:00: mouth [place] 00 every 6 Medical (six) Branch hours as needed for Pain (scale 4-6). traMADoL 50 2022-0 Yes [id number] 50mg Take 1 [facility] mg tablet 9-08 tablet by ity o f 00:00: mouth [place] 00 every 6 Medical (six) Branch hours as needed for Pain (scale 7-10). Indication s: acute pain ondansetron 2022-0 Yes [id number] 4mg Take 1 [facility] 4 mg 9-08 [id number] tablet by ity of disintegrat 00:00: mouth [place] ing tablet 00 every 8 Medica l (eight) Branch hours as needed for Nausea and Vomiting (N/V). ibuprofen 2022-0 Yes [id number] 600mg Take 1 [facility] 600 mg 9-08 [id number] tablet by ity of tablet 00:00: mouth [place] 00 every 6 Medical (six) Branch hours as needed for Pain (scale 4-6). traMADoL 50 2022-0 Yes [id number] 50mg Take 1 [facility] mg tablet 9-08 tablet by ity o f 00:00: mouth [place] 00 every 6 Medical (six) Branch hours as needed for Pain (scale 7-10). Indication s: acute pain ondansetron 2022-0 Yes [id number] 4mg Take 1 [facility] 4 mg 9-08 [id number] tablet by ity of disintegrat 00:00: mouth [place] ing tablet 00 every 8 Medica l (eight) Branch hours as needed for Nausea and Vomiting (N/V). ibuprofen 2022-0 Yes [id number] 600mg Take 1 [facility] 600 mg 9-08 [id number] tablet by ity of tablet 00:00: mouth [place] 00 every 6 Medical (six) Branch hours as needed for Pain (scale 4-6). traMADoL 50 2022-0 Yes [id number] 50mg Take 1 [facility] ers mg tablet 9-08 tablet by ity o f 00:00: mouth [place] 00 every 6 Medical (six) Branch hours as needed for Pain (scale 7-10). Indication s: acute pain ondansetron 2022-0 Yes [id number] 4mg Take 1 [facility] 4 mg 9-08 [id number] tablet by ity of disintegrat 00:00: mouth [place] ing tablet 00 every 8 Medica l (eight) Branch hours as needed for Nausea and Vomiting (N/V). ibuprofen 2022-0 Yes [id number] 600mg Take 1 [facility] 600 mg 9-08 [id number] tablet by ity of tablet 00:00: mouth [place] 00 every 6 Medical (six) Branch hours as needed for Pain (scale 4-6). traMADoL 50 2021-0 Yes [id number] 50mg Take 1 [facility] mg tablet 9-08 tablet by ity o f 00:00: mouth [place] 00 every 6 Medical (six) Branch hours as needed for Pain (scale 7-10). Indication s: acute pain ondansetron 2021-0 Yes [id number] 4mg Take 1 [facility] 4 mg 9-08 [id number] tablet by ity of disintegrat 00:00: mouth [place] ing tablet 00 every 8 Medica l (eight) Branch hours as needed for Nausea and Vomiting (N/V). ibuprofen 2021-0 Yes [id number] 600mg Take 1 [facility] 600 mg 9-08 [id number] tablet by ity of tablet 00:00: mouth [place] 00 every 6 Medical (six) Branch hours as needed for Pain (scale 4-6). traMADoL 50 2021-0 Yes [id number] 50mg Take 1 [facility] ers mg tablet 9-08 tablet by ity o f 00:00: mouth [place] 00 every 6 Medical (six) Branch hours as needed for Pain (scale 7-10). Indication s: acute pain ondansetron 2021-0 Yes [id number] 4mg Take 1 [facility] 4 mg 9- 918034 tablet by ity of disintegrat 00:00: mouth [place] ing tablet 00 every 8 Medica l (eight) Branch hours as needed for Nausea and Vomiting (N/V). ibuprofen 2021-0 Yes [id number] 600mg Take 1 [facility] 600 mg 9- [id number] tablet by ity of tablet 00:00: mouth [place] 00 every 6 Medical (six) Branch hours as needed for Pain (scale 4-6). traMADoL 50 2021-0 2021- No [id number] 50mg Take 1 [facility] vers mg tablet 9-12 20-18 tablet by ity of 00:00: 00:00 mouth [place] 00 :00 every 6 Medical (six) Branch hours as needed for Pain (scale 7-10). Indication s: acute pain ondansetron 2021-0 2021- No [id number] 4mg Take 1 [facility] 4 mg 9-08 10-18 [id number] tablet by [facility] of disintegrat 00:00: 00:00 [place] tablet 00 :00 every 8 Medica l (eight) Branch hours as needed for Nausea and Vomiting (N/V). ibuprofen 2021- No [id number] 600mg Take 1 [facility] 600 mg 01-18 [id number] tablet by ity o f tablet 00:00: [...] Indication s: acute pain ondansetron 2021-2021- No [id number] 4mg Take 1 [facility] 4 mg 01-18 [id number] tablet by [facility] of disintegrat 00:00: 00:00 [place] tablet 00 :00 every 8 Medica l (eight) Branch hours as needed for Nausea and Vomiting (N/V). ibuprofen 2021- No [id number] 600mg Take 1 [facility] 600 mg 01-18 [id number] tablet by ity o f tablet 00:00: [...] Indication s: acute pain ondansetron 2021- No [id number] 4mg Take 1 [facility] 4 mg 01-18 [id number] tablet by [facility] of disintegrat 00:00: 00:00 mouth [place] tablet 00 :00 every 8 Medica l (eight) Branch hours as needed for Nausea and Vomiting (N/V). ibuprofen 2021- No [id number] 600mg Take 1 [facility] 600 mg 01-18 [id number] tablet by ity o f tablet 00:00: [...] Indication s: acute pain ondansetron 2021- No [id number] 4mg Take 1 [facility] 4 mg 01-18 [id number] tablet by [facility] of disintegrat 00:00: 00:00 mouth [place] tablet 00 :00 every 8 Medica l (eight) Branch hours as needed for Nausea and Vomiting (N/V). ibuprofen 2021- No [id number] 600mg Take 1 [facility] 600 mg 01-18 [id number] tablet by ity o f tablet 00:00: 00:00 mouth [place] 00 :00 every 6 Medical (six) Branch hours as needed for Pain (scale 4-6). predniSONE 2021- No [id number] 40mg Take 2 [facility] 20 mg 01-16 tablets by ity of tablet 00:00: 04:59 mouth in [place] 00 :00 the Medical morning Branch for 7 days. predniSONE 2021- No [id number] 40mg Take 2 [facility] 20 mg 01-16 tablets by ity of tablet 00:00: 04:59 mouth in [place] 00 :00 the [facility] Branch for 7 days. morpHINE (4 [...] mg Sat01/15/22 Branch at 0915, [place] dexamethaso 2021- No 10mg 10 mg, Uni vers ne sod phos 01-15 Slow IV ity of PF 14:15: 14:37 Push, [place] injection 00 :00 ONCE, 1 Medical 10 mg dose, On Branch Sat01/15/22 at 0915, 1 mL proMETHazin 2021-0 Yes [id number] 25mg Take 1 Univers e 25 mg 9-05 tablet by ity of tablet 00:00: mouth [place] 00 every 6 Medical (six) Branch hours as needed for Nausea and Vomiting (N/V). proMETHazin 2021-0 Yes [id number] 25mg Take 1 [facility] e 25 mg 9-05 tablet by ity of tablet 00:00: mouth [place] 00 every 6 Medical (six) Branch hours as needed for Nausea and Vomiting (N/V). proMETHazin 2021-0 Yes [id number] 25mg Take 1 [facility] e 25 mg 9-05 tablet by ity of tablet 00:00: mouth [place] 00 every 6 Medical (six) Branch hours as needed for Nausea and Vomiting (N/V). proMETHazin 2-0 Yes [id number] 25mg Take 1 [facility] e 25 mg 9-05 tablet by ity of tablet 00:00: mouth [place] 00 every 6 Medical (six) Branch hours as needed for Nausea and Vomiting (N/V). proMETHazin 2021-0 Yes [id number] 25mg Take 1 [facility] e 25 mg 9-05 tablet by ity of tablet 00:00: mouth [place] 00 every 6 Medical (six) Branch hours as needed for Nausea and Vomiting (N/V). proMETHazin 2021-0 Yes [id number] 25mg Take 1 [facility] e 25 mg 9-05 tablet by ity of tablet 00:00: mouth [place] 00 every 6 Medical (six) Branch hours as needed for Nausea and Vomiting (N/V). proMETHazin 2021-0 Yes [id number] 25mg Take 1 [facility] e 25 mg 9-05 tablet by ity of tablet 00:00: mouth [place] 00 every 6 Medical (six) Branch hours as needed for Nausea and Vomiting (N/V). proMETHazin 2021-0 Yes [id number] 25mg Take 1 [facility] e 25 mg 9-05 tablet by ity of tablet 00:00: mouth [place] 00 every 6 Medical (six) Branch hours as needed for Nausea and Vomiting (N/V). proMETHazin 2021-0 Yes [id number] 25mg Take 1 [facility] e 25 mg 9-05 tablet by ity of tablet 00:00: mouth [place] 00 every 6 Medical (six) Branch hours as needed for Nausea and Vomiting (N/V). proMETHazin 2021-0 2021- No [id number] 25mg Take 1 [facility] e 25 mg 9-05 10-18 tablet by ity of tablet 00:00: 00:00 mouth [place] 00 :00 every 6 Medical (six) Branch hours as needed for Nausea and Vomiting (N/V). proMETHazin 2021-0 2022- No [id number] 25mg Take 1 [facility] e 25 mg 9-05 10-18 tablet by ity of tablet 00:00: 00:00 mouth [place] 00 :00 every 6 Medical (six) Branch hours as needed for Nausea and Vomiting (N/V). proMETHazin 2021-0 2022- No [id number] 25mg Take 1 [facility] e 25 mg 9-05 10-18 tablet by ity of tablet 00:00: 00:00 mouth [place] 00 :00 every 6 Medical (six) Branch hours as needed for Nausea and Vomiting (N/V). proMETHazin 2021-0 2022- No [id number] 25mg Take 1 [facility] e 25 mg [...] 4 mg 01/08/22 at 2045, Routine HYDROcodone 0 2021- No 1{tbl} 1 tablet, Univers -acetaminop [...] On Branch 01/08/22 at 1845, [place] ondansetron 0 Yes [id number] 4mg Take 1 [facility] 4 mg 8-29 tablet by ity of disintegrat 00:00: mouth [place] ing tablet 00 every 8 Medica l (eight) Branch hours as needed for Nausea and Vomiting (N/V). acetaminoph 2021-0 Yes [id number] 650mg Take 1 [facility] en (TYLENOL 8-29 tablet by ity of ARTHRITIS 00:00: mouth [place] PAIN) 650 00 every 8 Medical mg CR (eight) Branch tablet hours as needed for Pain. ketorolac 2021-0 Yes [id number] 10mg Take 1 [facility] n[facility] 10 mg 8-29 tablet by ity of tablet 00:00: mouth [place] 00 every 6 Medical (six) Branch hours as needed for Pain (scale 4-6) or Pain (scale 7-10). metaxalone 2021-0 Yes [id number] 800mg Take 1 [facility] (SKELAXIN) 8-29 tablet by ity of 800 mg 00:00: mouth in [place] tablet 00 the Medical morning Branch and 1 tablet at noon and 1 tablet in the evening. ondansetron 2021-0 Yes [id number] 4mg Take 1 [facility] 4 mg 8-29 tablet by ity of disintegrat 00:00: mouth [place] ing tablet 00 every 8 Medica l (eight) Branch hours as needed for Nausea and Vomiting (N/V). acetaminoph 2021-0 Yes [id number] 650mg Take 1 [facility] en (TYLENOL 8-29 tablet by ity of ARTHRITIS 00:00: mouth [place] PAIN) 650 00 every 8 Medical mg CR (eight) Branch tablet hours as needed for Pain. ketorolac 2021-0 Yes [id number] 10mg Take 1 [facility] nivers 10 mg 8-29 tablet by ity of tablet 00:00: mouth [place] 00 every 6 Medical (six) Branch hours as needed for Pain (scale 4-6) or Pain (scale 7-10). metaxalone 2021-0 Yes [id number] 800mg Take 1 [facility] (SKELAXIN) 8-29 tablet by ity of 800 mg 00:00: mouth in [place] tablet 00 the Medical morning Branch and 1 tablet at noon and 1 tablet in the evening. ondansetron 2021-0 Yes [id number] 4mg Take 1 [facility] 4 mg 8-29 tablet by ity of disintegrat 00:00: mouth [place] ing tablet 00 every 8 Medica l (eight) Branch hours as needed for Nausea and Vomiting (N/V). acetaminoph 202-0 Yes [id number] 650mg Take 1 [facility] en (TYLENOL 8-29 tablet by ity of ARTHRITIS 00:00: mouth [place] PAIN) 650 00 every 8 Medical mg CR (eight) Branch tablet hours as needed for Pain. ketorolac 2021-0 Yes [id number] 10mg Take 1 U nivers 10 mg 8-29 tablet by ity of tablet 00:00: mouth [place] 00 every 6 Medical (six) Branch hours as needed for Pain (scale 4-6) or Pain (scale 7-10). metaxalone 2022-0 Yes [id number] 800mg Take 1 [facility] (SKELAXIN) 8-29 tablet by ity of 800 mg 00:00: mouth in [place] tablet 00 the Medical morning Branch and 1 tablet at noon and 1 tablet in the evening. ondansetron 2022-0 Yes [id number] 4mg Take 1 [facility] 4 mg 8-29 tablet by ity of disintegrat 00:00: mouth [place] ing tablet 00 every 8 Medica l (eight) Branch hours as needed for Nausea and Vomiting (N/V). acetaminoph 2022-0 Yes [id number] 650mg Take 1 [facility] en (TYLENOL 8-29 tablet by ity of ARTHRITIS 00:00: mouth [place] PAIN) 650 00 every 8 Medical mg CR (eight) Branch tablet hours as needed for Pain. ketorolac 2022-0 Yes [id number] 10mg Take 1 U nivers 10 mg 8-29 tablet by ity of tablet 00:00: mouth [place] 00 every 6 Medical (six) Branch hours as needed for Pain (scale 4-6) or Pain (scale 7-10). metaxalone 2022-0 Yes [id number] 800mg Take 1 [facility] (SKELAXIN) 8-29 tablet by ity of 800 mg 00:00: mouth in [place] tablet 00 the Medical morning Branch and 1 tablet at noon and 1 tablet in the evening. ondansetron 2022-0 Yes [id number] 4mg Take 1 [facility] 4 mg 8-29 tablet by ity of disintegrat 00:00: mouth [place] ing tablet 00 every 8 Medica l (eight) Branch hours as needed for Nausea and Vomiting (N/V). acetaminoph 2022-0 Yes [id number] 650mg Take 1 [facility] en (TYLENOL 8-29 tablet by ity of ARTHRITIS 00:00: mouth [place] PAIN) 650 00 every 8 Medical mg CR (eight) Branch tablet hours as needed for Pain. ketorolac 2022-0 Yes [id number] 10mg Take 1 U nivers 10 mg 8-29 tablet by ity of tablet 00:00: mouth [place] 00 every 6 Medical (six) Branch hours as needed for Pain (scale 4-6) or Pain (scale 7-10). metaxalone 2022-0 Yes [id number] 800mg Take 1 [facility] (SKELAXIN) 8-29 tablet by ity of 800 mg 00:00: mouth in [place] tablet 00 the Medical morning Branch and 1 tablet at noon and 1 tablet in the evening. ondansetron 2022-0 Yes [id number] 4mg Take 1 [facility] 4 mg 8-29 tablet by ity of disintegrat 00:00: mouth [place] ing tablet 00 every 8 Medica l (eight) Branch hours as needed for Nausea and Vomiting (N/V). acetaminoph 2022-0 Yes [id number] 650mg Take 1 [facility] en (TYLENOL 8-29 tablet by ity of ARTHRITIS 00:00: mouth [place] PAIN) 650 00 every 8 Medical mg CR (eight) Branch tablet hours as needed for Pain. ketorolac 2022-0 Yes [id number] 10mg Take 1 U nivers 10 mg 8-29 tablet by ity of tablet 00:00: mouth [place] 00 every 6 Medical (six) Branch hours as needed for Pain (scale 4-6) or Pain (scale 7-10). metaxalone 2-0 Yes [id number] 800mg Take 1 [facility] (SKELAXIN) 8-29 tablet by ity of 800 mg 00:00: mouth in [place] tablet 00 the Medical morning Branch and 1 tablet at noon and 1 tablet in the evening. ondansetron 2-0 Yes [id number] 4mg Take 1 [facility] 4 mg 8-29 tablet by ity of disintegrat 00:00: mouth [place] ing tablet 00 every 8 Medica l (eight) Branch hours as needed for Nausea and Vomiting (N/V). acetaminoph 2022-0 Yes [id number] 650mg Take 1 [facility] en (TYLENOL 8-29 tablet by ity of ARTHRITIS 00:00: mouth [place] PAIN) 650 00 every 8 Medical mg CR (eight) Branch tablet hours as needed for Pain. ketorolac 2022-0 Yes [id number] 10mg Take 1 U nivers 10 mg 8-29 tablet by ity of tablet 00:00: mouth [place] 00 every 6 Medical (six) Branch hours as needed for Pain (scale 4-6) or Pain (scale 7-10). metaxalone 2022-0 Yes [id number] 800mg Take 1 [facility] (SKELAXIN) 8-29 tablet by ity of 800 mg 00:00: mouth in [place] tablet 00 the Medical morning Branch and 1 tablet at noon and 1 tablet in the evening. ondansetron 2022-0 Yes [id number] 4mg Take 1 [facility] 4 mg 8-29 tablet by ity of disintegrat 00:00: mouth [place] ing tablet 00 every 8 Medica l (eight) Branch hours as needed for Nausea and Vomiting (N/V). acetaminoph 2022-0 Yes [id number] 650mg Take 1 [facility] en (TYLENOL 8-29 tablet by ity of ARTHRITIS 00:00: mouth [place] PAIN) 650 00 every 8 Medical mg CR (eight) Branch tablet hours as needed for Pain. ketorolac 2022-0 Yes [id number] 10mg Take 1 U nivers 10 mg 8-29 tablet by ity of tablet 00:00: mouth [place] 00 every 6 Medical (six) Branch hours as needed for Pain (scale 4-6) or Pain (scale 7-10). metaxalone 2022-0 Yes [id number] 800mg Take 1 [facility] (SKELAXIN) 8-29 tablet by ity of 800 mg 00:00: mouth in [place] tablet 00 the Medical morning Branch and 1 tablet at noon and 1 tablet in the evening. ondansetron 2-0 Yes [id number] 4mg Take 1 [facility] 4 mg 8-29 tablet by ity of disintegrat 00:00: mouth [place] ing tablet 00 every 8 Medica l (eight) Branch hours as needed for Nausea and Vomiting (N/V). acetaminoph 2022-0 Yes [id number] 650mg Take 1 [facility] en (TYLENOL 8-29 tablet by ity of ARTHRITIS 00:00: mouth [place] PAIN) 650 00 every 8 Medical mg CR (eight) Branch tablet hours as needed for Pain. ketorolac 2022-0 Yes [id number] 10mg Take 1 U nivers 10 mg 8-29 tablet by ity of tablet 00:00: mouth [place] 00 every 6 Medical (six) Branch hours as needed for Pain (scale 4-6) or Pain (scale 7-10). metaxalone 2022-0 Yes [id number] 800mg Take 1 [facility] (SKELAXIN) 8-29 tablet by ity of 800 mg 00:00: mouth in [place] tablet 00 the Medical morning Branch and 1 tablet at noon and 1 tablet in the evening. ondansetron 2021-0 Yes [id number] 4mg Take 1 [facility] 4 mg 8-29 tablet by ity of disintegrat 00:00: mouth [place] ing tablet 00 every 8 Medica l (eight) Branch hours as needed for Nausea and Vomiting (N/V). acetaminoph 2021-0 Yes [id number] 650mg Take 1 [facility] en (TYLENOL 8-29 tablet by ity of ARTHRITIS 00:00: mouth [place] PAIN) 650 00 every 8 Medical mg CR (eight) Branch tablet hours as needed for Pain. ketorolac 2021-0 Yes [id number] 10mg Take 1 U nivers 10 mg 8-29 tablet by ity of tablet 00:00: mouth [place] 00 every 6 Medical (six) Branch hours as needed for Pain (scale 4-6) or Pain (scale 7-10). metaxalone 2021-0 Yes [id number] 800mg Take 1 [facility] (SKELAXIN) 8-29 tablet by ity of 800 mg 00:00: mouth in [place] tablet 00 the Medical morning Branch and 1 tablet at noon and 1 tablet in the evening. acetaminoph 2021-0 Yes [id number] 650mg Take 1 [facility] en (TYLENOL 8-29 tablet by ity of ARTHRITIS 00:00: mouth [place] PAIN) 650 00 every 8 Medical mg CR (eight) Branch tablet hours as needed for Pain. acetaminoph 2021-0 Yes [id number] 650mg Take 1 [facility] en (TYLENOL 8-29 tablet by ity of ARTHRITIS 00:00: mouth [place] PAIN) 650 00 every 8 Medical mg CR (eight) Branch tablet hours as needed for Pain. acetaminoph 2021-0 Yes [id number] 650mg Take 1 [facility] en (TYLENOL 8-29 tablet by ity of ARTHRITIS 00:00: mouth [place] PAIN) 650 00 every 8 Medical mg CR (eight) Branch tablet hours as needed for Pain. acetaminoph 2021-0 Yes [id number] 650mg Take 1 [facility] en (TYLENOL 8-29 tablet by ity of ARTHRITIS 00:00: mouth [place] PAIN) 650 00 every 8 Medical mg CR (eight) Branch tablet hours as needed for Pain. acetaminoph 2021-0 Yes [id number] 650mg Take 1 [facility] en (TYLENOL 8-29 tablet by ity of ARTHRITIS 00:00: mouth [place] PAIN) 650 00 every 8 Medical mg CR (eight) Branch tablet hours as needed for Pain. acetaminoph 2021-0 Yes [id number] 650mg Take 1 [facility] en (TYLENOL 8-29 tablet by ity of ARTHRITIS 00:00: mouth [place] PAIN) 650 00 every 8 Medical mg CR (eight) Branch tablet hours as needed for Pain. acetaminoph 0 Yes [id number] 650mg Take 1 [facility] en (TYLENOL 8-29 tablet by ity of ARTHRITIS 00:00: mouth [place] PAIN) 650 00 every 8 Medical mg CR (eight) Branch tablet hours as needed for Pain. acetaminoph 2021-0 Yes [id number] 650mg Take 1 [facility] en (TYLENOL 8-29 tablet by ity of ARTHRITIS 00:00: mouth [place] PAIN) 650 00 every 8 Medical mg CR (eight) Branch tablet hours as needed for Pain. acetaminoph 0 Yes [id number] 650mg Take 1 [facility] en (TYLENOL 8-29 tablet by ity of ARTHRITIS 00:00: mouth [place] PAIN) 650 00 every 8 Medical mg CR (eight) Branch tablet hours as needed for Pain. acetaminoph 0 Yes [id number] 650mg Take 1 [facility] en (TYLENOL 8-29 tablet by ity of ARTHRITIS 00:00: mouth [place] PAIN) 650 00 every 8 Medical mg CR (eight) Branch tablet hours as needed for Pain. acetaminoph 0 Yes [id number] 650mg Take 1 [facility] en (TYLENOL 8-29 tablet by ity of ARTHRITIS 00:00: mouth [place] PAIN) 650 00 every 8 Medical mg CR (eight) Branch tablet hours as needed for Pain. acetaminoph 2021-0 Yes [id number] 650mg Take 1 [facility] en (TYLENOL 8-29 tablet by ity of ARTHRITIS 00:00: mouth [place] PAIN) 650 00 every 8 Medical mg CR (eight) Branch tablet hours as needed for Pain. acetaminoph 2021-0 Yes [id number] 650mg Take 1 [facility] en (TYLENOL 8-29 tablet by ity of ARTHRITIS 00:00: mouth [place] PAIN) 650 00 every 8 Medical mg CR (eight) Branch tablet hours as needed for Pain. acetaminoph 0 Yes [id number] 650mg Take 1 [facility] en (TYLENOL 8-29 tablet by ity of ARTHRITIS 00:00: mouth [place] PAIN) 650 00 every 8 Medical mg CR (eight) Branch tablet hours as needed for Pain. acetaminoph 0 Yes [id number] 650mg Take 1 [facility] en (TYLENOL 8-29 tablet by ity of ARTHRITIS 00:00: mouth [place] PAIN) 650 00 every 8 Medical mg CR (eight) Branch tablet hours as needed for Pain. acetaminoph Yes [id number] 650mg Take 1 [facility] en (TYLENOL 8-29 tablet by ity of ARTHRITIS 00:00: mouth [place] PAIN) 650 00 every 8 Medical mg CR (eight) Branch tablet hours as needed for Pain. acetaminoph Yes [id number] 650mg Take 1 [facility] en (TYLENOL 8-29 tablet by ity of ARTHRITIS 00:00: mouth [place] PAIN) 650 00 every 8 Medical mg CR (eight) Branch tablet hours as needed for Pain. acetaminoph 2021- No [id number] 650mg Take 1 [facility] en (TYLENOL 8-29 11-26 tablet by it y of ARTHRITIS 00:00: 00:00 mouth [place] PAIN) 650 00 :00 every 8 Medical mg CR (eight) Branch tablet hours as needed for Pain. ondansetron 2021- No [id number] 4mg Take 1 [facility] 4 mg 8-29 10-18 tablet by ity of disintegrat 00:00: 00:00 [place] tablet 00 :00 every 8 Medica l (eight) Branch hours as needed for Nausea and Vomiting (N/V). ketorolac 0 2- No [id number] 10mg Take 1 [facility] 10 mg 8-29 10-18 tablet by ity of tablet 00:00: 00:00 mouth [place] 00 :00 every 6 Medical (six) Branch hours as needed for Pain (scale 4-6) or Pain (scale 7-10). metaxalone 2021- No [id number] 800mg Take 1 [facility] (SKELAXIN) 8-29 10-18 tablet by ity of 800 mg 00:00: 00:00 mouth in [place] tablet 00 :00 the Medical morning Branch and 1 tablet at noon and 1 tablet in the evening. ondansetron 2022-0 2022- No [id number] 4mg Take 1 [facility] 4 mg 8-29 10-18 tablet by ity of disintegrat 00:00: 00:00 mouth [place] tablet 00 :00 every 8 Medica l (eight) Branch hours as needed for Nausea and Vomiting (N/V). ketorolac 2022-0 2022- No [id number] 10mg Take 1 [facility] 10 mg 8-29 10-18 tablet by ity of tablet 00:00: 00:00 mouth [place] 00 :00 every 6 Medical (six) Branch hours as needed for Pain (scale 4-6) or Pain (scale 7-10). metaxalone 2022-0 2022- No [id number] 800mg Take 1 [facility] (SKELAXIN) 8-29 10-18 tablet by ity of 800 mg 00:00: 00:00 mouth in [place] tablet 00 :00 the Medical morning Branch and 1 tablet at noon and 1 tablet in the evening. ondansetron 2022-0 2022- No [id number] 4mg Take 1 [facility] 4 mg 8-29 10-18 tablet by ity of disintegrat 00:00: 00:00 mouth [place] tablet 00 :00 every 8 Medica l (eight) Branch hours as needed for Nausea and Vomiting (N/V). ketorolac 2022-0 2022- No [id number] 10mg Take 1 [facility] 10 mg 8-29 10-18 tablet by ity of tablet 00:00: 00:00 mouth [place] 00 :00 every 6 Medical (six) Branch hours as needed for Pain (scale 4-6) or Pain (scale 7-10). metaxalone 2022-0 2022- No [id number] 800mg Take 1 [facility] (SKELAXIN) 8-29 10-18 tablet by ity of 800 mg 00:00: 00:00 mouth in [place] tablet 00 :00 the Medical morning Branch and 1 tablet at noon and 1 tablet in the evening. ondansetron 2022-0 2022- No [id number] 4mg Take 1 [facility] 4 mg 8-29 10-18 tablet by ity of disintegrat 00:00: 00:00 mouth [place] tablet 00 :00 every 8 Medica l (eight) Branch hours as needed for Nausea and Vomiting (N/V). ketorolac 2021-0 2021- No [id number] 10mg Take 1 [facility] 10 mg 8-29 10-18 tablet by ity of tablet 00:00: 00:00 mouth [place] 00 :00 every 6 Medical (six) Branch hours as needed for Pain (scale 4-6) or Pain (scale 7-10). metaxalone 2021-0 2021- No [id number] 800mg Take 1 [facility] (SKELAXIN) 8-29 10-18 [...] ity o f capsule 13:03: every 6 [place] [address] (six) Medical hours as Branch needed for Allergies. carbamazepi Yes Take by Uni vers ne 8-02 mouth. ity of (TEGRETOL 13:03: [place] ORAL) Medical Branch citalopram Yes Take by Univ ers hydrobromid 8-02 mouth. ity of e 13:03: [place] (CITALOPRAM 04 Medical ORAL) Branch ALBUTEROL Yes Univers INHALE 8 ity of 13:03: [address] Branch diphenhydrA Yes 25mg Take 25 mg [facility] MINE 25 mg 12-12 by mouth ity o f capsule 13:03: every 6 [place] [address] (six) Medical hours as Branch needed for Allergies. carbamazepi Yes Take by Uni vers ne 8-02 mouth. ity of (TEGRETOL 13:03: [place] ORAL) Medical Branch citalopram Yes Take by Univ ers hydrobromid 8-02 mouth. ity of e 13:03: [place] (CITALOPRAM 04 Medical ORAL) Branch ALBUTEROL Yes [facility] INHALE 802 ity of 13:03: [address] Branch diphenhydrA Yes 25mg Take 25 mg [facility] MINE 25 mg 802 by mouth ity o f capsule 13:03: every 6 [place] [address] (six) Medical hours as Branch needed for Allergies. carbamazepi Yes Take by Uni vers ne 8-02 mouth. ity of (TEGRETOL 13:03: [place] ORAL) 04 Medical Branch citalopram Yes Take by Univ ers hydrobromid 8-02 mouth. ity of e 13:03: [place] (CITALOPRAM 04 Medical ORAL) Branch ALBUTEROL Yes [facility] INHALE 8-02 ity of 13:03: [place] [address] Medical Branch diphenhydrA Yes 25mg Take 25 mg [facility] MINE 25 mg 8-02 by mouth ity o f capsule 13:03: every 6 [place] [address] (six) Medical hours as Branch needed for Allergies. carbamazepi 0 Yes Take by [facility] vers ne 8-02 mouth. ity of (TEGRETOL 13:03: [place] ORAL) Medical Branch citalopram Yes Take by Univ ers hydrobromid 8-02 mouth. ity of e 13:03: [place] (CITALOPRAM 04 Medical ORAL) Branch ALBUTEROL Yes Univers INHALE 8- ity of 13:03: [place] [address] Medical Branch diphenhydrA Yes 25mg Take 25 mg Univers MINE 25 mg 802 by mouth ity o f capsule 13:03: every 6 [place] [address] (six) Medical hours as Branch needed for Allergies. carbamazepi Yes Take by Uni vers ne 8-02 mouth. ity of (TEGRETOL 13:03: [place] ORAL) Medical Branch citalopram Yes Take by Univ ers hydrobromid 8-02 mouth. ity of e 13:03: [place] (CITALOPRAM 04 Medical ORAL) Branch ALBUTEROL 0 Yes [facility] INHALE 8 ity of 13:03: [place] [address] Medical Branch diphenhydrA Yes 25mg Take 25 mg [facility] MINE 25 mg 8-02 by mouth ity o f capsule 13:03: every 6 [place] [address] (six) Medical hours as Branch needed for Allergies. carbamazepi Yes Take by Uni vers ne 8-02 mouth. ity of (TEGRETOL 13:03: [place] ORAL) Medical Branch citalopram Yes Take by Univ ers hydrobromid 8-02 mouth. ity of e 13:03: [place] (CITALOPRAM 04 Medical ORAL) Branch ALBUTEROL 0 Yes [facility] INHALE 802 ity of 13:03: [place] [address] Medical Branch diphenhydrA Yes 25mg Take 25 mg [facility] MINE 25 mg 8-02 by mouth ity o f capsule 13:03: every 6 [place] [address] (six) Medical hours as Branch needed for Allergies. carbamazepi 2022-0 Yes Take by [facility] vers ne 8-02 mouth. ity of (TEGRETOL 13:03: [place] ORAL) Medical Branch citalopram Yes Take by Univ ers hydrobromid 8-02 mouth. ity of e 13:03: [place] (CITALOPRAM 04 Medical ORAL) Branch ALBUTEROL 0 Yes [facility] INHALE 802 ity of 13:03: [place] [facility] diphenhydrA 0 Yes 25mg Take 25 mg [facility] MINE 25 mg 802 by mouth ity o f capsule 13:03: every 6 [place] [address] (six) Medical hours as Branch needed for Allergies. carbamazepi Yes Take by [facility] vers ne 8-02 mouth. ity of (TEGRETOL 13:03: [place] ORAL) Medical Branch citalopram Yes Take by Univ ers hydrobromid 8-02 mouth. ity of e 13:03: [place] (CITALOPRAM 04 Medical ORAL) Branch ALBUTEROL Yes [facility] INHALE 8 ity of 13:03: [place] [address] Medical Branch diphenhydrA Yes 25mg Take 25 mg [facility] MINE 25 mg 802 by mouth ity o f capsule 13:03: every 6 [place] [address] (six) Medical hours as Branch needed for Allergies. carbamazepi Yes Take by [facility] vers ne 8-02 mouth. ity of (TEGRETOL 13:03: [place] ORAL) Medical Branch citalopram Yes Take by Univ ers hydrobromid 8-02 mouth. ity of e 13:03: [place] (CITALOPRAM 04 Medical ORAL) Branch ALBUTEROL 0 Yes [facility] INHALE 8 ity of 13:03: [place] [address] Medical Branch diphenhydrA Yes 25mg Take 25 mg [facility] MINE 25 mg 802 by mouth ity o f capsule 13:03: every 6 [place] [address] (six) Medical hours as Branch needed for Allergies. carbamazepi 0 Yes Take by [facility] vers ne 8-02 mouth. ity of (TEGRETOL 13:03: [place] ORAL) 04 Medical Branch citalopram Yes Take by Univ ers hydrobromid 8-02 mouth. ity of e 13:03: [place] (CITALOPRAM 04 Medical ORAL) [place] ALBUTEROL Yes Univers INHALE 8-02 ity of 13:03: [address] ALBUTEROL Yes [facility] INHALE 8-02 ity of 13:03: [address] ALBUTEROL Yes [facility] INHALE 8-02 ity of 13:03: [address] ALBUTEROL Yes [facility] INHALE 8-02 ity of 13:03: [address] ALBUTEROL Yes [facility] INHALE 8-02 ity of 13:03: [address] ALBUTEROL Yes [facility] INHALE 8-02 ity of 13:03: [address] ALBUTEROL Yes [facility] INHALE 8-02 ity of 13:03: [address] ALBUTEROL Yes [facility] INHALE 8-02 ity of 13:03: [address] ALBUTEROL Yes [facility] INHALE 8-02 ity of 13:03: [address] ALBUTEROL Yes [facility] INHALE 8-02 ity of 13:03: [address] ALBUTEROL Yes [facility] INHALE 8-02 ity of 13:03: [address] ALBUTEROL Yes [facility] INHALE 8-02 ity of 13:03: [address] ALBUTEROL Yes [facility] INHALE 8-02 ity of 13:03: [address] ALBUTEROL Yes [facility] INHALE 8-02 ity of 13:03: [address] ALBUTEROL Yes Univers INHALE 8-02 ity of 13:03: [address] traZODone Yes [id number] 50mg Take 1 U nivers 50 mg 8-02 tablet by ity of tablet 00:00: mouth at [place] 00 bedtime. [facility] Branch SERTraline Yes [id number] 50mg Take 1 Univers (ZOLOFT) 50 8-02 tablet by ity of mg tablet 00:00: [place] 00 the Medical morning. Branch traZODone Yes [id number] 50mg Take 1 U nivers 50 mg 8-02 tablet by ity of tablet 00:00: mouth at [place] 00 bedtime. Medical Branch SERTraline 2021-0 Yes 50mg Take 1 Univers (ZOLOFT) 50 8-02 tablet by ity of mg tablet 00:00: mouth [place] 00 the Medical morning. Branch traZODone 2021-0 Yes [id number] 50mg Take 1 U nivers 50 mg 8-02 tablet by ity of tablet 00:00: mouth at [place] 00 bedtime. Medical Branch SERTraline 2021-0 Yes 50mg Take 1 Univers (ZOLOFT) 50 8-02 tablet by ity of mg tablet 00:00: mouth [place] 00 the Medical morning. Branch traZODone 2021-0 Yes [id number] 50mg Take 1 U nivers 50 mg 8-02 tablet by ity of tablet 00:00: mouth at [place] 00 bedtime. Medical Branch SERTraline 0 Yes 50mg Take 1 Univers (ZOLOFT) 50 8-02 tablet by ity of mg tablet 00:00: mouth [place] 00 the Medical morning. Branch traZODone 0 Yes [id number] 50mg Take 1 U nivers 50 mg 8-02 tablet by ity of tablet 00:00: mouth at [place] 00 bedtime. Medical Branch SERTraline 0 Yes [id number] 50mg Take 1 Univers (ZOLOFT) 50 8-02 tablet by ity of mg tablet 00:00: mouth [place] 00 the Medical morning. Branch traZODone 2021-0 Yes [id number] 50mg Take 1 U nivers 50 mg 8-02 tablet by ity of tablet 00:00: mouth at [place] 00 bedtime. Medical Branch SERTraline 0 Yes [id number] 50mg Take 1 Univers (ZOLOFT) 50 8-02 tablet by ity of mg tablet 00:00: mouth [place] 00 the Medical morning. Branch traZODone 2021-0 Yes [id number] 50mg Take 1 U nivers 50 mg 8-02 tablet by ity of tablet 00:00: mouth at [place] 00 bedtime. Medical Branch SERTraline 2021-0 Yes [id number] 50mg Take 1 Univers (ZOLOFT) 50 8-02 tablet by ity of mg tablet 00:00: mouth in [place] 00 the Medical morning. Branch traZODone 0 Yes [id number] 50mg Take 1 U nivers 50 mg 8-02 tablet by ity of tablet 00:00: mouth at [place] 00 bedtime. Medical Branch SERTraline 0 Yes [id number] 50mg Take 1 Univers (ZOLOFT) 50 8-02 tablet by ity of mg tablet 00:00: mouth in [place] 00 the Medical morning. Branch traZODone 0 Yes [id number] 50mg Take 1 U nivers 50 mg 8-02 tablet by ity of tablet 00:00: mouth at [place] 00 bedtime. Medical Branch SERTraline 0 Yes [id number] 50mg Take 1 Univers (ZOLOFT) 50 8-02 tablet by ity of mg tablet 00:00: mouth in [place] 00 the Medical morning. Branch traZODone 0 Yes [id number] 50mg Take 1 U nivers 50 mg 8-02 tablet by ity of tablet 00:00: mouth at [place] 00 bedtime. Medical Branch SERTraline 0 Yes [id number] 50mg Take 1 Univers (ZOLOFT) 50 8-02 tablet by ity of mg tablet 00:00: mouth [place] 00 the Medical morning. Branch traZODone 0 Yes [id number] 50mg Take 1 U nivers 50 mg 8-02 tablet by ity of tablet 00:00: mouth at [place] 00 bedtime. Medical Branch SERTraline 0 Yes [id number] 50mg Take 1 Univers (ZOLOFT) 50 8-02 tablet by ity of mg tablet 00:00: mouth [place] 00 the Medical morning. Branch traZODone 0 2021- No [id number] 50mg Take 1 Univers 50 mg 8-02 10-18 tablet by ity of tablet 00:00: 00:00 mouth at [place] 00 :00 bedtime. Medical Branch SERTraline 0 2021- No [id number] 50mg Take 1 Univers (ZOLOFT) 50 8-02 10-18 tablet by it y of mg tablet 00:00: 00:00 mouth in [place] as 00 :00 the Medical morning. Branch traZODone 2021- No [id number] 50mg Take 1 Univers 50 mg 8- 10-18 tablet by ity of tablet 00:00: 00:00 mouth at [place] 00 :00 bedtime. Medical Branch SERTraline 2021- No [id number] 50mg Take 1 Univers (ZOLOFT) 50 8- 10-18 tablet by it y of mg tablet 00:00: 00:[address] [facility] as 00 :00 the Medical morning. Branch traZODone 2021- No [id number] 50mg Take 1 Univers 50 mg 8- 10-18 tablet by ity of tablet 00:00: 00:00 mouth at [place] 00 :00 bedtime. Medical Branch SERTraline 2021- No [id number] 50mg Take 1 Univers (ZOLOFT) 50 8- 10-18 tablet by it y of mg tablet 00:00: 00:[address] [facility] as 00 :00 the Medical morning. Branch traZODone 2021- No [id number] 50mg Take 1 Univers 50 mg 8- 10-18 tablet by ity of tablet 00:00: 00:00 mouth at [place] 00 :00 bedtime. Medical Branch SERTraline 2021- No [id number] 50mg Take 1 Univers (ZOLOFT) 50 8- 10-18 tablet by it y of mg tablet 00:00: 00:[address] [facility] as 00 :00 the Medical morning. Branch sulfamethox 2021- No [id number] 1{tbl} Take 1 Univers azole-trime 12-12- tablet by it y of thoprim 00:00: 04:59 mouth in [place] (BACTRIM 00 :00 the Medical DS) 800-160 morning Branc h mg per and 1 tablet tablet in the evening. Do all this for 3 days. ibuprofen Yes [id number] 600mg Take 1 Univers 600 mg 7-15 tablet by ity of tablet 00:00: mouth [place] [address] every 6 Medical (six) Branch hours as needed for Pain (scale 4-6). ibuprofen Yes [id number] 600mg Take 1 Univers 600 mg 7-15 tablet by ity of tablet 00:00: mouth [place] [address] every 6 Medical (six) Branch hours as needed for Pain (scale 4-6). ibuprofen 2022-0 Yes [id number] 600mg Take 1 Univers 600 mg 7-15 tablet by ity of tablet 00:00: mouth [place] 00 every 6 Medical (six) Branch hours as needed for Pain (scale 4-6). ibuprofen 2022-0 Yes [id number] 600mg Take 1 Univers 600 mg 7-15 tablet by ity of tablet 00:00: mouth [place] 00 every 6 Medical (six) Branch hours as needed for Pain (scale 4-6). ibuprofen 2022-0 Yes [id number] 600mg Take 1 [facility] 600 mg 7-15 tablet by ity of tablet 00:00: mouth [place] 00 every 6 Medical (six) Branch hours as needed for Pain (scale 4-6). ibuprofen 2022-0 Yes [id number] 600mg Take 1 Univers 600 mg 7-15 tablet by ity of tablet 00:00: mouth [place] 00 every 6 Medical (six) Branch hours as needed for Pain (scale 4-6). ibuprofen 2022-0 Yes [id number] 600mg Take 1 [facility] 600 mg 7-15 tablet by ity of tablet 00:00: mouth [place] 00 every 6 Medical (six) Branch hours as needed for Pain (scale 4-6). ibuprofen 2022-0 Yes [id number] 600mg Take 1 [facility] 600 mg 7-15 tablet by ity of tablet 00:00: mouth [place] 00 every 6 Medical (six) Branch hours as needed for Pain (scale 4-6). ibuprofen 2022-0 Yes [id number] 600mg Take 1 Univers 600 mg 7-15 tablet by ity of tablet 00:00: mouth [place] 00 every 6 Medical (six) Branch hours as needed for Pain (scale 4-6). ibuprofen 2022-0 Yes [id number] 600mg Take 1 [facility] 600 mg 7-15 tablet by ity of tablet 00:00: mouth [place] 00 every 6 Medical (six) Branch hours as needed for Pain (scale 4-6). ibuprofen 2022-0 Yes [id number] 600mg Take 1 Univers 600 mg 7-15 tablet by ity of tablet 00:00: mouth [place] 00 every 6 Medical (six) Branch hours as needed for Pain (scale 4-6). ibuprofen 2022-0 2022- No [id number] 600mg Take 1 Univers 600 mg 7-15 10-18 tablet by ity of tablet 00:00: 00:00 mouth [place] 00 :00 every 6 Medical (six) Branch hours as needed for Pain (scale 4-6). ibuprofen 2021- No [id number] 600mg Take 1 [facility] 600 mg 7-15 10-18 tablet by ity of tablet 00:00: 00:00 mouth [place] 00 :00 every 6 Medical (six) Branch hours as needed for Pain (scale 4-6). ibuprofen 2021- No [id number] 600mg Take 1 [facility] 600 mg 7-15 10-18 tablet by ity of tablet 00:00: 00:00 mouth [place] 00 :00 every 6 Medical (six) Branch hours as needed for Pain (scale 4-6). ibuprofen 2021- No [id number] 600mg Take 1 Univers 600 mg 7-15 [...] Indication s: acute pain bromphenira 0 Yes [id number] 5mL Take 5 mL Univers mine-pseudo 11-18 by mouth 4 it y of ephedrine-D 00:00: (four) [place] M (BROMFED 00 times Medical DM) 2-30-10 daily as Bran ch mg/5 mL needed for syrup Congestion /Allergies or Cough. naproxen 2021-0 Yes [id number] 500mg Take 1 U nivers 500 mg 7-09 tablet by ity of tablet 00:00: mouth [place] 00 every 8 Medical (eight) Branch hours as needed for Pain (scale 4-6). cyclobenzap 2021-0 Yes [id number] 10mg Take 1 Univers rine 10 mg 7-09 tablet by ity of tablet 00:00: mouth at [place] 00 bedtime as Medical needed for Branch Muscle Spasms. bromphenira 2021-0 Yes [id number] 5mL Take 5 mL Univers mine-pseudo 7-09 by mouth 4 it y of ephedrine-D 00:00: (four) [place] M (BROMFED 00 times Medical DM) 2-30-10 daily as Bran ch mg/5 mL needed for syrup Congestion /Allergies or Cough. naproxen 2-0 Yes [id number] 500mg Take 1 U nivers 500 mg 7-09 tablet by ity of tablet 00:00: mouth [place] 00 every 8 Medical (eight) Branch hours as needed for Pain (scale 4-6). cyclobenzap 2021-0 Yes [id number] 10mg Take 1 Univers rine 10 mg 7-09 tablet by ity of tablet 00:00: mouth at [place] 00 bedtime as Medical needed for Branch Muscle Spasms. bromphenira 2021-0 Yes [id number] 5mL Take 5 mL Univers mine-pseudo 7-09 by mouth 4 it y of ephedrine-D 00:00: (four) [place] M (BROMFED 00 times Medical DM) 2-30-10 daily as Bran ch mg/5 mL needed for syrup Congestion /Allergies or Cough. naproxen 2021-0 Yes [id number] 500mg Take 1 U nivers 500 mg 7-09 tablet by ity of tablet 00:00: mouth [place] 00 every 8 Medical (eight) Branch hours as needed for Pain (scale 4-6). cyclobenzap 2021-0 Yes [id number] 10mg Take 1 Univers rine 10 mg 7-09 tablet by ity of tablet 00:00: mouth at [place] 00 bedtime as Medical needed for Branch Muscle Spasms. bromphenira 2021-0 Yes [id number] 5mL Take 5 mL [facility] mine-pseudo 7-09 by mouth 4 it y of ephedrine-D 00:00: (four) [place] M (BROMFED 00 times Medical DM) 2-30-10 daily as Bran ch mg/5 mL needed for syrup Congestion /Allergies or Cough. naproxen 2-0 Yes [id number] 500mg Take 1 U nivers 500 mg 7-09 tablet by ity of tablet 00:00: mouth [place] 00 every 8 Medical (eight) Branch hours as needed for Pain (scale 4-6). cyclobenzap 2022-0 Yes [id number] 10mg Take 1 Univers rine 10 mg 7-09 tablet by ity of tablet 00:00: mouth at [place] 00 bedtime as Medical needed for Branch Muscle Spasms. bromphenira 2021-0 Yes [id number] 5mL Take 5 mL Univers mine-pseudo 7-09 by mouth 4 it y of ephedrine-D 00:00: (four) [place] M (BROMFED 00 times Medical DM) 2-30-10 daily as Bran ch mg/5 mL needed for syrup Congestion /Allergies or Cough. naproxen 2021-0 Yes [id number] 500mg Take 1 U nivers 500 mg 7-09 tablet by ity of tablet 00:00: mouth [place] 00 every 8 Medical (eight) Branch hours as needed for Pain (scale 4-6). cyclobenzap 2021-0 Yes [id number] 10mg Take 1 Univers rine 10 mg 7-09 tablet by ity of tablet 00:00: mouth at [place] 00 bedtime as Medical needed for Branch Muscle Spasms. bromphenira 2021-0 Yes [id number] 5mL Take 5 mL Univers mine-pseudo 7-09 by mouth 4 it y of ephedrine-D 00:00: (four) [place] M (BROMFED 00 times Medical DM) 2-30-10 daily as Bran ch mg/5 mL needed for syrup Congestion /Allergies or Cough. naproxen 2021-0 Yes [id number] 500mg Take 1 U nivers 500 mg 7-09 tablet by ity of tablet 00:00: mouth [place] 00 every 8 Medical (eight) Branch hours as needed for Pain (scale 4-6). cyclobenzap 2021-0 Yes [id number] 10mg Take 1 Univers rine 10 mg 7-09 tablet by ity of tablet 00:00: mouth at [place] 00 bedtime as Medical needed for Branch Muscle Spasms. bromphenira 2021-0 Yes [id number] 5mL Take 5 mL Univers mine-pseudo 7-09 by mouth 4 it y of ephedrine-D 00:00: (four) [place] M (BROMFED 00 times Medical DM) 2-30-10 daily as Bran ch mg/5 mL needed for syrup Congestion /Allergies or Cough. naproxen 2021-0 Yes [id number] 500mg Take 1 U nivers 500 mg 7-09 tablet by ity of tablet 00:00: mouth [place] 00 every 8 Medical (eight) Branch hours as needed for Pain (scale 4-6). cyclobenzap 2022-0 Yes [id number] 10mg Take 1 Univers rine 10 mg 7-09 tablet by ity of tablet 00:00: mouth at [place] 00 bedtime as Medical needed for Branch Muscle Spasms. bromphenira 2022-0 Yes [id number] 5mL Take 5 mL Univers mine-pseudo 7-09 by mouth 4 it y of ephedrine-D 00:00: (four) [place] M (BROMFED 00 times Medical DM) 2-30-10 daily as Bran ch mg/5 mL needed for syrup Congestion /Allergies or Cough. naproxen 2-0 Yes [id number] 500mg Take 1 U nivers 500 mg 7-09 tablet by ity of tablet 00:00: mouth [place] 00 every 8 Medical (eight) Branch hours as needed for Pain (scale 4-6). cyclobenzap 2-0 Yes [id number] 10mg Take 1 Univers rine 10 mg 7-09 tablet by ity of tablet 00:00: mouth at [place] 00 bedtime as Medical needed for Branch Muscle Spasms. bromphenira 2-0 Yes [id number] 5mL Take 5 mL Univers mine-pseudo 7-09 by mouth 4 it y of ephedrine-D 00:00: (four) [place] M (BROMFED 00 times Medical DM) 2-30-10 daily as Bran ch mg/5 mL needed for syrup Congestion /Allergies or Cough. naproxen 2022-0 Yes [id number] 500mg Take 1 U nivers 500 mg 7-09 tablet by ity of tablet 00:00: mouth [place] 00 every 8 Medical (eight) Branch hours as needed for Pain (scale 4-6). cyclobenzap 2022-0 Yes [id number] 10mg Take 1 Univers rine 10 mg 7-09 tablet by ity of tablet 00:00: mouth at [place] 00 bedtime as Medical needed for Branch Muscle Spasms. bromphenira 2022-0 Yes [id number] 5mL Take 5 mL Univers mine-pseudo 7-09 by mouth 4 it y of ephedrine-D 00:00: (four) [place] M (BROMFED 00 times Medical DM) 2-30-10 daily as Bran ch mg/5 mL needed for syrup Congestion /Allergies or Cough. naproxen 2021-0 Yes [id number] 500mg Take 1 U nivers 500 mg 7-09 tablet by ity of tablet 00:00: mouth [place] 00 every 8 Medical (eight) Branch hours as needed for Pain (scale 4-6). cyclobenzap 2021-0 Yes [id number] 10mg Take 1 Univers rine 10 mg 7-09 tablet by ity of tablet 00:00: mouth at [place] 00 bedtime as Medical needed for Branch Muscle Spasms. bromphenira 2021-0 Yes [id number] 5mL Take 5 mL [facility] mine-pseudo 7-09 by mouth 4 it y of ephedrine-D 00:00: (four) [place] M (BROMFED 00 times Medical DM) 2-30-10 daily as Bran ch mg/5 mL needed for syrup Congestion /Allergies or Cough. naproxen 2021-0 Yes [id number] 500mg Take 1 U nivers 500 mg 7-09 tablet by ity of tablet 00:00: mouth [place] 00 every 8 Medical (eight) Branch hours as needed for Pain (scale 4-6). cyclobenzap 2021-0 Yes [id number] 10mg Take 1 Univers rine 10 mg 7-09 tablet by ity of tablet 00:00: mouth at [place] 00 bedtime as Medical needed for Branch Muscle Spasms. bromphenira 2021-0 Yes [id number] 5mL Take 5 mL Univers mine-pseudo 7-09 by mouth 4 it y of ephedrine-D 00:00: (four) [place] M (BROMFED 00 times Medical DM) 2-30-10 daily as Bran ch mg/5 mL needed for syrup Congestion /Allergies or Cough. bromphenira 2021-0 Yes [id number] 5mL Take 5 mL Univers mine-pseudo 7-09 by mouth 4 it y of ephedrine-D 00:00: (four) [place] M (BROMFED 00 times Medical DM) 2-30-10 daily as Bran ch mg/5 mL needed for syrup Congestion /Allergies or Cough. bromphenira 2021-0 Yes [id number] 5mL Take 5 mL Univers mine-pseudo 7-09 by mouth 4 it y of ephedrine-D 00:00: (four) [place] (BROMFED 00 times Medical DM) 2-30-10 daily as Bran ch mg/5 mL needed for syrup Congestion /Allergies or Cough. bromphenira 2-0 Yes [id number] 5mL Take 5 mL Univers mine-pseudo 7-09 by mouth 4 it y of ephedrine-D 00:00: (four) [place] M (BROMFED 00 times Medical DM) 2-30-10 daily as Bran ch mg/5 mL needed for syrup Congestion /Allergies or Cough. bromphenira 2021-0 Yes [id number] 5mL Take 5 mL Univers mine-pseudo 7-09 by mouth 4 it y of ephedrine-D 00:00: (four) [place] (BROMFED 00 times Medical DM) 2-30-10 daily as Bran ch mg/5 mL needed for syrup Congestion /Allergies or Cough. bromphenira 2021-0 Yes [id number] 5mL Take 5 mL Univers mine-pseudo 7-09 by mouth 4 it y of ephedrine-D 00:00: (four) [place] M (BROMFED 00 times Medical DM) 2-30-10 daily as Bran ch mg/5 mL needed for syrup Congestion /Allergies or Cough. bromphenira 2021-0 Yes [id number] 5mL Take 5 mL Univers mine-pseudo 7-09 by mouth 4 it y of ephedrine-D 00:00: (four) [place] (BROMFED 00 times Medical DM) 2-30-10 daily as Bran ch mg/5 mL needed for syrup Congestion /Allergies or Cough. bromphenira 2021-0 Yes [id number] 5mL Take 5 mL Univers mine-pseudo 7-09 by mouth 4 it y of ephedrine-D 00:00: (four) [place] (BROMFED 00 times Medical DM) 2-30-10 daily as Bran ch mg/5 mL needed for syrup Congestion /Allergies or Cough. bromphenira 2022-0 Yes [id number] 5mL Take 5 mL Univers mine-pseudo 7-09 by mouth 4 it y of ephedrine-D 00:00: (four) [place] (BROMFED 00 times Medical DM) 2-30-10 daily as Bran ch mg/5 mL needed for syrup Congestion /Allergies or Cough. bromphenira 2021-0 Yes [id number] 5mL Take 5 mL Univers mine-pseudo 7-09 by mouth 4 it y of ephedrine-D 00:00: (four) [place] (BROMFED 00 times Medical DM) 2-30-10 daily as Bran ch mg/5 mL needed for syrup Congestion /Allergies or Cough. bromphenira 2021-0 Yes [id number] 5mL Take 5 mL Univers mine-pseudo 7-09 by mouth 4 it y of ephedrine-D 00:00: (four) [place] M (BROMFED 00 times Medical DM) 2-30-10 daily as Bran ch mg/5 mL needed for syrup Congestion /Allergies or Cough. bromphenira 2021-0 Yes [id number] 5mL Take 5 mL [facility] mine-pseudo 7-09 by mouth 4 it y of ephedrine-D 00:00: (four) [place] (BROMFED 00 times Medical DM) 2-30-10 daily as Bran ch mg/5 mL needed for syrup Congestion /Allergies or Cough. bromphenira 2021-0 Yes [id number] 5mL Take 5 mL [facility] mine-pseudo 7-09 by mouth 4 it y of ephedrine-D 00:00: (four) [place] (BROMFED 00 times Medical DM) 2-30-10 daily as Bran ch mg/5 mL needed for syrup Congestion /Allergies or Cough. bromphenira 2021-0 Yes [id number] 5mL Take 5 mL [facility] mine-pseudo 7- by mouth 4 it y of ephedrine-D 00:00: (four) [place] (BROMFED 00 times Medical DM) 2-30-10 daily as Bran ch mg/5 mL needed for syrup Congestion /Allergies or Cough. bromphenira 0 2021- No [id number] 5mL Take 5 mL [facility] mine-pseudo 7-09 11-12 by mouth 4 i ty of ephedrine-D 00:00: 00:00 (four) [place] as M (BROMFED 00 :00 times Medical DM) 2-30-10 daily as Bran ch mg/5 mL needed for syrup Congestion /Allergies or Cough. naproxen 2021- No [id number] 500mg Take 1 [facility] 500 mg 7-09 10-18 tablet by ity of tablet 00:00: 00:00 mouth [place] 00 :00 every 8 Medical (eight) Branch hours as needed for Pain (scale 4-6). cyclobenzap No [id number] 10mg Take 1 [facility] rine 10 mg 7-09 10-18 tablet by ity of tablet 00:00: 00:00 mouth at [place] 00 :00 bedtime as Medical needed for Branch Muscle Spasms. naproxen No [id number] 500mg Take 1 [facility] 500 mg 7-09 10-18 tablet by ity of tablet 00:00: 00:00 mouth [place] 00 :00 every 8 Medical (eight) Branch hours as needed for Pain (scale 4-6). cyclobenzap No [id number] 10mg Take 1 Univers rine 10 mg 7-09 10-18 tablet by ity of tablet 00:00: 00:00 mouth at [place] 00 :00 bedtime as Medical needed for Branch Muscle Spasms. naproxen No [id number] 500mg Take 1 [facility] 500 mg 7-09 10-18 tablet by ity of tablet 00:00: 00:00 mouth [place] 00 :00 every 8 Medical (eight) Branch hours as needed for Pain (scale 4-6). cyclobenzap No [id number] 10mg Take 1 Univers rine 10 mg 7-09 10-18 tablet by ity of tablet 00:00: 00:00 mouth at [place] 00 :00 bedtime as Medical needed for Branch Muscle Spasms. naproxen No [id number] 500mg Take 1 [facility] 500 mg 7-09 10-18 tablet by ity of tablet 00:00: 00:00 mouth [place] 00 :00 every 8 Medical (eight) Branch hours as needed for Pain (scale 4-6). cyclobenzap No [id number] 10mg Take 1 Univers rine 10 mg 7-09 10-18 tablet by ity of tablet 00:00: 00:00 mouth at [place] 00 :00 bedtime as Medical needed for Branch Muscle Spasms. ibuprofen 2021- Yes [id number] 605mg Take 30.25 Univers 100 mg/5 mL 6-15 mL by ity of oral 00:00: mouth [place] suspension 00 every 6 Medica l (six) Branch hours as needed for Pain (scale 4-6) or Temp > 38.5 C. ibuprofen 2022-0 Yes [id number] 605mg Take 30.25 Univers 100 mg/5 mL 6-15 mL by ity of oral 00:00: mouth [place] 00 every 6 Medica l (six) Branch hours as needed for Pain (scale 4-6) or Temp > 38.5 C. ibuprofen 2022-0 Yes [id number] 605mg Take 30.25 [facility] 100 mg/5 mL 6-15 mL by ity of oral 00:00: mouth [place] suspension 00 every 6 Medica l (six) Branch hours as needed for Pain (scale 4-6) or Temp > 38.5 C. ibuprofen 2022-0 Yes [id number] 605mg Take 30.25 Univers 100 mg/5 mL 6-15 mL by ity of oral 00:00: mouth [place] suspension 00 every 6 Medica l (six) Branch hours as needed for Pain (scale 4-6) or Temp > 38.5 C. ibuprofen 2022-0 Yes [id number] 605mg Take 30.25 [facility] 100 mg/5 mL 6-15 mL by ity of oral 00:00: mouth [place] suspension 00 every 6 Medica l (six) Branch hours as needed for Pain (scale 4-6) or Temp > 38.5 C. ibuprofen 2022-0 Yes [id number] 605mg Take 30.25 [facility] 100 mg/5 mL 6-15 mL by ity of oral 00:00: mouth [place] suspension 00 every 6 Medica l (six) Branch hours as needed for Pain (scale 4-6) or Temp > 38.5 C. ibuprofen 2022-0 Yes [id number] 605mg Take 30.25 [facility] 100 mg/5 mL 6-15 mL by ity of oral 00:00: mouth [place] suspension 00 every 6 Medica l (six) Branch hours as needed for Pain (scale 4-6) or Temp > 38.5 C. ibuprofen 2022-0 Yes [id number] 605mg Take 30.25 [facility] 100 mg/5 mL 6-15 mL by ity of oral 00:00: mouth [place] suspension 00 every 6 Medica l (six) Branch hours as needed for Pain (scale 4-6) or Temp > 38.5 C. ibuprofen 0 Yes [id number] 605mg Take 30.25 [facility] 100 mg/5 mL 6-15 mL by ity of oral 00:00: mouth [place] suspension 00 every 6 Medica l (six) Branch hours as needed for Pain (scale 4-6) or Temp > 38.5 C. ibuprofen 0 Yes [id number] 605mg Take 30.25 [facility] 100 mg/5 mL 6-15 mL by ity of oral 00:00: mouth [place] suspension 00 every 6 Medica l (six) Branch hours as needed for Pain (scale 4-6) or Temp > 38.5 C. ibuprofen Yes [id number] 605mg Take 30.25 [facility] 100 mg/5 mL 6-15 mL by ity of oral 00:00: mouth [place] suspension 00 every 6 Medica l (six) Branch hours as needed for Pain (scale 4-6) or Temp > 38.5 C. ibuprofen 2021- No [id number] 605mg Take 30.25 [facility] 100 mg/5 mL 6-15 10-18 mL by ity of oral 00:00: 00:00 mouth [place] suspension 00 :00 every 6 Medica l (six) Branch hours as needed for Pain (scale 4-6) or Temp > 38.5 C. ibuprofen 2021- No [id number] 605mg Take 30.25 [facility] 100 mg/5 mL 6-15 10-18 mL by ity of oral 00:00: 00:00 mouth [place] suspension 00 :00 every 6 Medica l (six) Branch hours as needed for Pain (scale 4-6) or Temp > 38.5 C. ibuprofen 2021-2021- No [id number] 605mg Take 30.25 [facility] 100 mg/5 mL 6-15 10-18 mL by ity of oral 00:00: 00:00 mouth [place] suspension 00 :00 every 6 Medica l (six) Branch hours as needed for Pain (scale 4-6) or Temp > 38.5 C. ibuprofen 2021- No [id number] 605mg Take 30.25 [facility] 100 mg/5 mL 6-15 10-18 mL by ity of oral 00:00: 00:00 mouth [place] suspension 00 :00 every 6 Medica l (six) Branch hours as needed for Pain (scale 4-6) or Temp > 38.5 C. acetaminoph 2021-0 2021- No [id number] 608mg Take 19 mL [facility] en 160 mg/5 6-15 08-02 by mouth ity of mL liquid 00:00: 00:00 [place] 6 [place] 00 :[place] (six) Medical hours as Branch needed for Fever. DULoxetine 2021-0 Yes [facility] 60 mg 5-27 ity of capsule 00:00: [place] 00 Medical Branch DULoxetine 2021-0 Yes [facility] 60 mg 5-27 ity of capsule 00:00: [place] [address] Medical Branch DULoxetine 2021-0 Yes [facility] 60 mg 5-27 ity of capsule 00:00: [place] [address] [facility] Branch DULoxetine 2021-0 Yes [facility] 60 mg 5-27 ity of capsule 00:00: [place] [address] [facility] Branch DULoxetine 2021-0 Yes [facility] 60 mg 5-27 ity of capsule 00:00: [place] [address] [facility] Branch DULoxetine 2021-0 Yes [facility] 60 mg 5-27 ity of capsule 00:00: [place] [address] [facility] Branch DULoxetine 2-0 Yes [facility] 60 mg 5-27 ity of capsule 00:00: [place] [address] [facility] Branch DULoxetine 2-0 Yes [facility] 60 mg 5-27 ity of capsule 00:00: [place] [address] [facility] Branch DULoxetine 2-0 Yes [facility] 60 mg 5-27 ity of capsule 00:00: [place] [address] [facility] Branch DULoxetine 2-0 Yes [facility] 60 mg 5-27 ity of capsule 00:00: [place] 00 Medical Branch DULoxetine 2-0 Yes [facility] 60 mg 5-27 ity of capsule 00:00: [place] [address] [facility] Branch DULoxetine 2-0 2- No Univer s 60 mg 5-27 10-18 ity of capsule 00:00: 00:00 [place] 00 :00 Medical Branch DULoxetine 2-0 2- No Univer s 60 mg 5-27 10-18 ity of capsule 00:00: 00:00 [place] 00 :00 Medical Branch DULoxetine 2-0 2- No Univer s 60 mg 5-27 10-18 ity of capsule 00:00: 00:00 [place] 00 :00 Medical Branch DULoxetine 2021- No Univer s 60 mg 5-27 10-18 ity of capsule 00:00: 00:00 [place] 00 :00 Medical Branch traZODone 2021- No [facility] 50 mg 5-27 08-02 ity of tablet 00:00: 00:00 [place] 00 :00 Medical Branch mometasone 0 Yes [id number] 1{spray Use 1 [facility] 50 5-19 } [place] in ity of mcg/actuati 00:00: each [place] on nasal 00 nostril 2 Medica l spray (two) Branch times daily. mometasone Yes [id number] 1{spray Use 1 [facility] 50 5-19 } [place] in ity of mcg/actuati 00:00: each [place] on nasal 00 nostril 2 Medica l spray (two) Branch times daily. mometasone Yes [id number] 1{spray Use 1 [facility] 50 5-19 } [place] in ity of mcg/actuati 00:00: each [place] on nasal 00 nostril 2 Medica l spray (two) Branch times daily. mometasone Yes [id number] 1{spray Use 1 [facility] 50 5-19 } [place] in ity of mcg/actuati 00:00: each [place] on nasal 00 nostril 2 Medica l spray (two) Branch times daily. mometasone Yes [id number] 1{spray Use 1 [facility] 50 5-19 } [place] in ity of mcg/actuati 00:00: each [place] on nasal 00 nostril 2 Medica l spray (two) Branch times daily. mometasone Yes [id number] 1{spray Use 1 [facility] 50 5-19 } [place] in ity of mcg/actuati 00:00: each [place] on nasal 00 nostril 2 Medica l spray (two) Branch times daily. mometasone Yes [id number] 1{spray Use 1 [facility] 50 5-19 } [place] in ity of mcg/actuati 00:00: each [place] on nasal 00 nostril 2 Medica l spray (two) Branch times daily. mometasone Yes [id number] 1{spray Use 1 [facility] 50 5-19 } [place] in ity of mcg/actuati 00:00: each [place] on nasal 00 nostril 2 Medica l spray (two) Branch times daily. mometasone Yes [id number] 1{spray Use 1 [facility] 50 5-19 } [place] in ity of mcg/actuati 00:00: each on nasal 00 nostril 2 Medica l spray (two) Branch times daily. mometasone Yes [id number] 1{spray Use 1 [facility] 50 5-19 } [place] in ity of mcg/actuati 00:00: each on nasal 00 nostril 2 Medica l spray (two) Branch times daily. mometasone Yes [id number] 1{spray Use 1 [facility] 50 5-19 } [place] in ity of mcg/actuati 00:00: each on nasal 00 nostril 2 Medica l spray (two) Branch times daily. mometasone 2021- No [id number] 1{spray Use 1 [facility] 50 5-19 10-18 } [place] in ity of mcg/actuati 00:00: 00:00 each on nasal 00 :00 nostril 2 Medica l spray (two) Branch times daily. mometasone 2021- No [id number] 1{spray Use 1 [facility] 50 5-19 10-18 } [place] in ity of mcg/actuati 00:00: 00:00 each on nasal 00 :00 nostril 2 Medica l spray (two) Branch times daily. mometasone 2021- No [id number] 1{spray Use 1 [facility] 50 5-19 10-18 } [place] in ity of mcg/actuati 00:00: 00:00 each [place] on nasal 00 :00 nostril 2 Medica l spray (two) Branch times daily. mometasone 2021- No [id number] 1{spray Use 1 [facility] 50 5-19 10-18 } [place] in ity of mcg/actuati 00:00: 00:00 each [place] on nasal 00 :00 nostril 2 Medica l spray (two) Branch times daily. cetirizine Yes [id number] 10mg Take 1 U nivers (ZYRTEC) 10 5-16 tablet by ity of mg tablet 00:00: mouth [place] 00 daily. Medical Branch cetirizine Yes [id number] 10mg Take 1 U nivers (ZYRTEC) 10 5-16 tablet by ity of mg tablet 00:00: mouth [place] 00 daily. Medical Branch cetirizine Yes [id number] 10mg Take 1 U nivers (ZYRTEC) 10 5-16 tablet by ity of mg tablet 00:00: mouth [place] 00 daily. Medical Branch cetirizine Yes [id number] 10mg Take 1 U nivers (ZYRTEC) 10 5-16 tablet by ity of mg tablet 00:00: mouth [place] 00 daily. Medical Branch cetirizine Yes [id number] 10mg Take 1 U nivers (ZYRTEC) 10 5-16 tablet by ity of mg tablet 00:00: mouth [place] 00 daily. Medical Branch cetirizine Yes [id number] 10mg Take 1 U nivers (ZYRTEC) 10 5-16 tablet by ity of mg tablet 00:00: mouth [place] 00 daily. Medical Branch cetirizine Yes [id number] 10mg Take 1 U nivers (ZYRTEC) 10 5-16 tablet by ity of mg tablet 00:00: mouth [place] 00 daily. Medical Branch cetirizine Yes [id number] 10mg Take 1 U nivers (ZYRTEC) 10 5-16 tablet by ity of mg tablet 00:00: mouth [place] 00 daily. Medical Branch cetirizine Yes [id number] 10mg Take 1 U nivers (ZYRTEC) 10 5-16 tablet by ity of mg tablet 00:00: mouth [place] 00 daily. Medical Branch cetirizine Yes [id number] 10mg Take 1 U nivers (ZYRTEC) 10 5-16 tablet by ity of mg tablet 00:00: mouth [place] 00 daily. Medical Branch cetirizine Yes [id number] 10mg Take 1 U nivers (ZYRTEC) 10 5-16 tablet by ity of mg tablet 00:00: mouth [place] 00 daily. Medical Branch cetirizine 2021- No [id number] 10mg Take 1 [facility] (ZYRTEC) 10 5-16 10-18 tablet by it y of mg tablet 00:00: 00:00 mouth [place] 00 :00 daily. Medical Branch cetirizine 2021-2021- No [id number] 10mg Take 1 [facility] (ZYRTEC) 10 5-16 10-18 tablet by it y of mg tablet 00:00: 00:00 mouth [place] 00 :00 daily. Medical Branch cetirizine 2021- No [id number] 10mg Take 1 [facility] (ZYRTEC) 10 5-16 10-18 tablet by it y of mg tablet 00:00: 00:00 mouth [place] 00 :00 daily. Medical Branch cetirizine 2021- No [id number] 10mg Take 1 [facility] (ZYRTEC) 10 5-16 [...] mg tablet 5-09 ity of 00:00: [place] [facility] DULoxetine 2022-0 Yes [facility] 30 mg 5-09 ity of capsule 00:00: [place] 00 [facility] gabapentin 2022-0 Yes [facility] 300 mg 5-09 ity of capsule 00:00: [place] 00 [facility] ondansetron 2022-0 Yes Univer s 4 mg tablet 5-09 ity of 00:00: [place] [facility] DULoxetine 2022-0 Yes [facility] 30 mg 5-09 ity of capsule 00:00: [place] [address] [facility] Branch gabapentin 2022-0 Yes [facility] 300 mg 5-09 ity of capsule 00:00: [place] [address] [facility] Branch ondansetron 2022-0 Yes Univer s 4 mg tablet 5-09 ity of 00:00: [place] [address] [facility] Branch DULoxetine 2022-0 Yes [facility] 30 mg 5-09 ity of capsule 00:00: [place] [address] [facility] Branch gabapentin 2022-0 Yes [facility] 300 mg 5-09 ity of capsule 00:00: [place] 00 Medical Branch ondansetron 2022-0 Yes Univer s 4 mg tablet 5-09 ity of 00:00: [place] [address] [facility] Branch DULoxetine 2022-0 Yes [facility] 30 mg 5-09 ity of capsule 00:00: [place] [address] [facility] Branch gabapentin 2022-0 Yes [facility] 300 mg 5-09 ity of capsule 00:00: [place] 00 Medical Branch ondansetron 2022-0 Yes Univer s 4 mg tablet 5-09 ity of 00:00: [place] [address] [facility] Branch DULoxetine 2022-0 Yes [facility] 30 mg 5-09 ity of capsule 00:00: [place] [address] [facility] Branch gabapentin 2022-0 Yes [facility] 300 mg 5-09 ity of capsule 00:00: [place] [address] [facility] Branch ondansetron 2022-0 Yes Univer s 4 mg tablet 5-09 ity of 00:00: [place] [address] [facility] Branch DULoxetine 2022-0 Yes [facility] 30 mg 5-09 ity of capsule 00:00: [place] [address] [facility] Branch gabapentin 2022-0 Yes [facility] 300 mg 09-18 ity of capsule 00:00: [place] 00 Medical Branch ondansetron 2022-0 Yes Univer s 4 mg tablet 09-18 ity of 00:00: [place] 00 [facility] Branch [...] 2022- No Unive rs 4 mg tablet 5-09 10-18 ity of 00:00: 00:00 [place] 00 :00 [...] amLODIPine 2022-0 Yes [facility] 5 mg tablet -22 ity of 00:00: [place] 00 Medical Branch amLODIPine 2022-0 Yes 5mg Take 5 mg Un sushant 5 mg tablet 22 by mouth. ity of 00:00: [place] 00 Medical Branch amLODIPine 2022-0 Yes [facility] 5 mg tablet 4-22 ity of 00:00: [place] 00 [facility] amLODIPine 2022-0 Yes 5mg Take 5 mg Un sushant 5 mg tablet 22 by mouth. ity of 00:00: [place] 00 Medical Branch amLODIPine 2022-0 Yes [facility] 5 mg tablet -22 ity of 00:00: [place] 00 [facility] amLODIPine 2022-0 Yes 5mg Take 5 mg Un sushant 5 mg tablet -22 by mouth. ity of 00:00: [place] 00 Medical Branch amLODIPine 2022-0 2022- No Univer s 5 mg tablet 09-01 10-18 ity of 00:00: 00:00 [place] 00 :00 Medical Branch amLODIPine 2022-0 2022- No 5mg Take 5 mg U nivers 5 mg tablet 09-01 10-18 by mouth. it y of 00:00: 00:00 [place] 00 :00 Medical Branch amLODIPine 2022-0 2022- No Univer s 5 mg tablet 09-01 10-18 ity of 00:00: 00:00 [place] 00 :00 Medical Branch amLODIPine 2022-0 2022- No 5mg Take 5 mg U nivers 5 mg tablet 09-01 10-18 by mouth. it y of 00:00: 00:00 [place] 00 :00 Medical Branch amLODIPine 2022-0 2022- No Univer s 5 mg tablet 09-01 10-18 ity of 00:00: 00:00 [place] 00 :00 Medical Branch amLODIPine 2022-0 2022- No 5mg Take 5 mg U nivers 5 mg tablet 09-01 10-18 by mouth. it y of 00:00: 00:00 [place] 00 :00 Medical Branch amLODIPine 2022-0 2022- No Univer s 5 mg tablet 09-01 10-18 ity of 00:00: 00:00 [place] 00 :00 Medical Branch amLODIPine 2022-0 2022- No 5mg Take 5 mg U nivers 5 mg tablet 09-01 10-18 by mouth. it y of 00:00: 00:00 [place] 00 :00 Medical Branch buPROPion Yes Univers [...] 00:00: 04:59 mouth. [place] tablet 00 :00 [facility] Branch buPROPion 2022- No 150mg Take 150 Un sushant XL 150 mg 4-20 04-21 mg by ity of 24 hr 00:00: 04:59 mouth. [place] tablet 00 :00 [facility] Branch buPROPion 3- No 150mg Take 150 Un sushant XL 150 mg 4-20 04-21 mg by ity of 24 hr 00:00: 04:59 mouth. [place] tablet 00 :00 [facility] Branch buPROPion 3- No 150mg Take 150 [...] tablet 00 :00 Medical Branch buPROPion 0 2- No 150mg Take 150 Un sushant XL 150 mg 4-20 10-18 mg by ity of 24 hr 00:00: 00:00 mouth. [place] tablet 00 :00 Medical Branch buPROPion 0 2021- No Univers XL 150 mg 4-20 10-18 ity of 24 hr 00:00: 00:00 [place] tablet 00 :00 Medical Branch buPROPion 2021-0 2021- No 150mg Take 150 Un sushant [...] tablet by ity of tablet 00:00: mouth ([facility]) Medical times Branch daily with meals. losartan [...] ity of tablet 00:00: mouth [place] 00 (two) Medical times Branch daily with meals. losartan 50 2020-05 Yes 50mg Take 1 Univ ers mg tablet 2-30 tablet by ity o f 00:00: mouth 2 [place] 00 (two) Medical times Branch daily. carvediloL 2020-05 Yes 25mg Take 1 Unive rs 25 mg 2-30 tablet by ity of tablet 00:00: mouth [place] (two) Medical times Branch daily with meals. losartan 50 2020-05 Yes 50mg Take 1 Univ ers mg tablet 2-30 tablet by ity o f 00:00: mouth [place] (two) Medical times Branch daily. carvediloL 2020-05- [...] 00 :00 (two) Medical times Branch daily. Immunizations Ordered Filled Immunization Date Status Comments [facility] e Immunization Name Name Influenza Virus [...] Branch Free 6 MO-64 YRS Influenza Virus 2022-02-21 Completed Universit y of Vaccine Quad .5 mL 00:00:00 [place] [facility] 6+ MO Branch Influenza Virus 2022-02-21 Completed Universit y of Vaccine Quad .5 mL 00:00:00 [place] [facility] IM 6+ MO Branch Influenza Virus 2022-02-21 Completed Universit y of Vaccine Quad .5 mL 00:00:00 [place] [facility] IM 6+ MO Branch Influenza Virus 2022-02-21 Completed Universit y of Vaccine Quad .5 mL 00:00:00 [place] [facility] IM 6+ MO Branch Influenza Virus 2022-02-21 Completed Universit y of Vaccine Quad .5 mL 00:00:00 [place] [facility] IM 6+ MO Branch Influenza Virus 2022-02-21 Completed Universit y of Vaccine Quad .5 mL 00:00:00 [place] [facility] IM 6+ MO Branch Influenza Virus 2022-02-21 Completed Universit y of Vaccine Quad .5 mL 00:00:00 [facility] IM 6+ MO Branch Influenza Virus 2022-02-21 Completed Universit y of Vaccine Quad .5 mL 00:00:00 [facility] IM 6+ MO Branch Influenza Virus 2022-02-21 Completed Universit y of Vaccine Quad .5 mL 00:00:00 [facility] IM 6+ MO Branch Influenza Virus 2021-06-11 Completed Universit y of Vaccine 00:00:00 [facility] Influenza Virus 2021-06-11 Completed Universit y of Vaccine 00:00:00 [facility] Influenza Virus 2021-06-11 Completed Universit y of Vaccine 00:00:00 [facility] Influenza Virus 2021-06-11 Completed Universit y of Vaccine 00:00:00 [facility] Influenza Virus 2021-06-11 Completed Universit y of Vaccine 00:00:00 [facility] Influenza Virus 2021-06-11 Completed Universit y of Vaccine 00:00:00 [facility] Influenza Virus 2021-06-11 Completed Universit y of Vaccine 00:00:00 [facility] Influenza Virus 2021-06-11 Completed Universit y of Vaccine 00:00:00 [facility] Influenza Virus 2021-06-11 Completed Universit y of Vaccine 00:00:00 [facility] Influenza Virus 2021-06-11 Completed Universit y of Vaccine 00:00:00 [facility] Influenza Virus 2021-06-11 Completed Universit y of Vaccine 00:00:00 [facility] Influenza Virus 2021-06-11 Completed Universit y of Vaccine 00:00:00 [facility] Influenza Virus 2021-06-11 Completed Universit y of Vaccine 00:00:00 [facility] Influenza Virus 2021-06-11 Completed Universit y of Vaccine 00:00:00 [facility] Influenza Virus 2021-06-11 Completed Universit y of Vaccine 00:00:00 [facility] Influenza Virus 2021-06-11 Completed Universit y of Vaccine 00:00:00 [facility] Influenza Virus 2021-06-11 Completed Universit y of Vaccine 00:00:00 [facility] Influenza Virus 2021-06-11 Completed Universit y of Vaccine 00:00:00 [facility] Influenza Virus 2021-06-11 Completed Universit y of Vaccine 00:00:00 [facility] Influenza Virus 2021-06-11 Completed Universit y of Vaccine 00:00:00 [facility] Influenza Virus 2021-06-11 Completed Universit y of Vaccine 00:00:00 [facility] Influenza Virus 2021-06-11 Completed Universit y of Vaccine 00:00:00 [facility] Influenza Virus 2021-06-11 Completed Universit y of Vaccine 00:00:00 [facility] Influenza Virus 2021-06-11 Completed Universit y of Vaccine 00:00:00 [facility] Influenza Virus 2021-06-11 Completed Universit y of Vaccine 00:00:00 [facility] Influenza Virus 2021-06-11 Completed Universit y of Vaccine 00:00:00 [facility] Influenza Virus 2021-06-11 Completed Universit y of Vaccine 00:00:00 [facility] Influenza Virus 2021-06-11 Completed Universit y of Vaccine 00:00:00 [facility] Influenza Virus 2021-06-11 Completed Universit y of Vaccine 00:00:00 [facility] Influenza Virus 2021-06-11 Completed Universit y of Vaccine 00:00:00 [facility] Influenza Virus 2021-06-11 Completed Universit y of Vaccine 00:00:00 [facility] Influenza Virus 2021-06-11 Completed Universit y of Vaccine 00:00:00 [facility] Influenza Virus 2021-06-11 Completed Universit y of Vaccine 00:00:00 [facility] Influenza Virus 2021-06-11 Completed Universit y of Vaccine 00:00:00 [facility] Influenza Virus 2021-06-11 Completed Universit y of Vaccine 00:00:00 [facility] Influenza Virus 2021-06-11 Completed Universit y of Vaccine 00:00:00 [facility] Influenza Virus 2021-06-11 Completed Universit y of Vaccine 00:00:00 [facility] Influenza Virus 2021-06-11 Completed Universit y of Vaccine 00:00:00 [facility] Influenza Virus 2021-06-11 Completed Universit y of Vaccine 00:00:00 [facility] Influenza Virus 2021-06-11 Completed Universit y of Vaccine 00:00:00 [facility] Influenza Virus 2021-06-11 Completed Universit y of Vaccine 00:00:00 [facility] Influenza Virus 2021-06-11 Completed Universit y of Vaccine 00:00:00 [facility] Influenza Virus 2021-06-11 Completed Universit y of Vaccine 00:00:00 [facility] Influenza Virus 2021-06-11 Completed Universit y of Vaccine 00:00:00 [facility] Influenza Virus 2021-06-11 Completed Universit y of Vaccine 00:00:00 [facility] Influenza Virus 2021-06-11 Completed Universit y of Vaccine 00:00:00 [facility] Influenza Virus 2021-06-11 Completed Universit y of Vaccine 00:00:00 [facility] Influenza Virus 2021-06-11 Completed Universit y of Vaccine 00:00:00 [facility] Influenza Virus 2021-06-11 Completed Universit y of Vaccine Quad .5 mL 00:00:00 [facility] 6+ MO Branch Influenza Virus 2021-06-11 Completed Universit y of Vaccine 00:00:00 [facility] Influenza Virus 2021-06-11 Completed Universit y of Vaccine Quad .5 mL 00:00:00 [facility] IM 6+ MO Branch Influenza Virus 2021-06-11 Completed Universit y of Vaccine 00:00:00 [facility] Influenza Virus 2021-06-11 Completed Universit y of Vaccine Quad .5 mL 00:00:00 [facility] IM 6+ MO Branch Influenza Virus 2021-06-11 Completed Universit y of Vaccine 00:00:00 [facility] Influenza Virus 2021-06-11 Completed Universit y of Vaccine Quad .5 mL 00:00:00 [place] [facility] IM 6+ MO Branch Influenza Virus 2021-06-11 Completed Universit y of Vaccine 00:00:00 [facility] Influenza Virus 2021-06-11 Completed Universit y of Vaccine Quad .5 mL 00:00:00 [facility] IM 6+ MO Branch Influenza Virus 2021-06-11 Completed Universit y of Vaccine 00:00:00 [facility] Influenza Virus 2021-06-11 Completed Universit y of Vaccine Quad .5 mL 00:00:00 [place] [facility] IM 6+ MO Branch Influenza Virus 2021-06-11 Completed Universit y of Vaccine 00:00:00 [facility] Influenza Virus 2021-06-11 Completed Universit y of Vaccine Quad .5 mL 00:00:00 [place] [facility] IM 6+ MO Branch Influenza Virus 2021-06-11 Completed Universit y of Vaccine 00:00:00 [facility] Influenza Virus 2021-06-11 Completed Universit y of Vaccine Quad .5 mL 00:00:00 [facility] 6+ MO Branch Influenza Virus 2021-06-11 Completed Universit y of Vaccine 00:00:00 [facility] Influenza Virus 2021-06-11 Completed Universit y of Vaccine Quad .5 mL 00:00:00 [facility] 6+ MO Branch Influenza Virus 2020-05-19 Completed Universit y of Vaccine 00:00:00 [facility] Influenza Virus 2020-05-19 Completed Universit y of Vaccine 00:00:00 [facility] Influenza Virus 2020-05-19 Completed Universit y of Vaccine 00:00:00 [facility] Influenza Virus 2020-05-19 Completed Universit y of Vaccine 00:00:00 [facility] Influenza Virus 2020-05-19 Completed Universit y of Vaccine 00:00:00 [facility] Influenza Virus 2020-05-19 Completed Universit y of Vaccine 00:00:00 [facility] Influenza Virus 2020-05-19 Completed Universit y of Vaccine 00:00:00 [facility] Influenza Virus 2020-05-19 Completed Universit y of Vaccine 00:00:00 [facility] Influenza Virus 2020-05-19 Completed Universit y of Vaccine 00:00:00 [facility] Influenza Virus 2020-05-19 Completed Universit y of Vaccine 00:00:00 [facility] Influenza Virus 2020-05-19 Completed Universit y of Vaccine 00:00:00 [facility] Influenza Virus 2020-05-19 Completed Universit y of Vaccine 00:00:00 [facility] Influenza Virus 2020-05-19 Completed Universit y of Vaccine 00:00:00 [facility] Influenza Virus 2020-05-19 Completed Universit y of Vaccine 00:00:00 [facility] Influenza Virus 2020-05-19 Completed Universit y of Vaccine 00:00:00 [facility] Influenza Virus 2020-05-19 Completed Universit y of Vaccine 00:00:00 [facility] Influenza Virus 2020-05-19 Completed Universit y of Vaccine 00:00:00 [facility] Influenza Virus 2020-05-19 Completed Universit y of Vaccine 00:00:00 [facility] Influenza Virus 2020-05-19 Completed Universit y of Vaccine 00:00:00 [facility] Influenza Virus 2020-05-19 Completed Universit y of Vaccine 00:00:00 [facility] Influenza Virus 2020-05-19 Completed Universit y of Vaccine 00:00:00 [place] [facility] Branch Influenza Virus 2020-05-19 Completed Universit y of Vaccine 00:00:00 [place] [facility] Influenza Virus 2020-05-19 Completed Universit y of Vaccine 00:00:00 [facility] Influenza Virus 2020-05-19 Completed Universit y of Vaccine 00:00:00 [facility] Influenza Virus 2020-05-19 Completed Universit y of Vaccine 00:00:00 [facility] Influenza Virus 2020-05-19 Completed Universit y of Vaccine 00:00:00 [facility] Influenza Virus 2020-05-19 Completed Universit y of Vaccine 00:00:00 [facility] Influenza Virus 2020-05-19 Completed Universit y of Vaccine 00:00:00 [facility] Influenza Virus 2020-05-19 Completed Universit y of Vaccine 00:00:00 [facility] Influenza Virus 2020-05-19 Completed Universit y of Vaccine 00:00:00 [facility] Influenza Virus 2020-05-19 Completed Universit y of Vaccine 00:00:00 [facility] Influenza Virus 2020-05-19 Completed [facility]it y of Vaccine 00:00:00 [place] [facility] Influenza Virus 2020-05-19 Completed Universit y of Vaccine 00:00:00 [facility] Influenza Virus 2020-05-19 Completed Universit y of Vaccine 00:00:00 [facility] Influenza Virus 2020-05-19 Completed Universit y of Vaccine 00:00:00 [facility] Influenza Virus 2020-05-19 Completed Universit y of Vaccine 00:00:00 [facility] Influenza Virus 2020-05-19 Completed Universit y of Vaccine 00:00:00 [facility] Influenza Virus 2020-05-19 Completed Universit y of Vaccine 00:00:00 [facility] Influenza Virus 2020-05-19 Completed Universit y of Vaccine 00:00:00 [facility] Influenza Virus 2020-05-19 Completed Universit y of Vaccine 00:00:00 [facility] Influenza Virus 2020-05-19 Completed Universit y of Vaccine 00:00:00 [facility] Influenza Virus 2020-05-19 Completed Universit y of Vaccine 00:00:00 [facility] Influenza Virus 2020-05-19 Completed Universit y of Vaccine 00:00:00 [facility] Influenza Virus 2020-05-19 Completed Universit y of Vaccine 00:00:00 [facility] Influenza Virus 2020-05-19 Completed Universit y of Vaccine 00:00:00 [facility] Influenza Virus 2020-05-19 Completed Universit y of Vaccine 00:00:00 [facility] Influenza Virus 2020-05-19 Completed Universit y of Vaccine 00:00:00 [facility] Influenza Virus 2020-05-19 Completed Universit y of Vaccine 00:00:00 [facility] Influenza Virus 2020-05-19 Completed Universit y of Vaccine 00:00:00 [facility] Influenza Virus 2020-05-19 Completed Universit y of Vaccine 00:00:00 [facility] Influenza Virus 2020-05-19 Completed Universit y of Vaccine 00:00:00 [facility] Influenza Virus 2020-05-19 Completed Universit y of Vaccine 00:00:00 [facility] Influenza Virus 2020-05-19 Completed Universit y of Vaccine 00:00:00 [facility] Influenza Virus 2020-05-19 Completed Universit y of Vaccine 00:00:00 [facility] Influenza Virus 2020-05-19 Completed Universit y of Vaccine 00:00:00 [facility] Influenza Virus 2020-05-19 Completed Universit y of Vaccine 00:00:00 [facility] Influenza Virus 2020-05-16 Completed Universit y of [...] (ADACEL) 2019-05-21 Completed University of VACCINE 00:00:00 [facility] TDAP (ADACEL) 2019-05-21 Completed University of VACCINE 00:00:00 [facility] TDAP (ADACEL) 2019-05-21 Completed University of VACCINE [...] of VACCINE 00:00:00 [facility] TDAP (ADACEL) 2019-05-21 Completed University of VACCINE 00:00:00 [facility] TDAP (ADACEL) 2019-05-21 Completed University of VACCINE 00:00:00 [facility] TDAP (ADACEL) 2019-05-21 Completed University of VACCINE 00:00:00 [facility] TDAP (ADACEL) 2019-05-21 Completed University of VACCINE 00:00:00 [facility] TDAP (ADACEL) 2019-05-21 Completed University of VACCINE 00:00:00 [facility] TDAP (ADACEL) 2019-05-21 Completed University of VACCINE 00:00:00 [facility] TDAP (ADACEL) 2019-05-21 Completed University of VACCINE 00:00:00 [facility] TDAP (ADACEL) 2019-05-21 Completed University of VACCINE 00:00:00 [facility] TDAP (ADACEL) 2019-05-21 Completed University [...] of VACCINE 00:00:00 [facility] TDAP (ADACEL) 2019-05-21 Completed University of VACCINE 00:00:00 [facility] TDAP (ADACEL) 2019-05-21 Completed University of VACCINE 00:00:00 [facility] TDAP (ADACEL) 2019-05-21 Completed University of VACCINE 00:00:00 [facility] TDAP (ADACEL) 2019-05-21 Completed University of VACCINE 00:00:00 [facility] TDAP (ADACEL) 2019-05-21 Completed University of VACCINE 00:00:00 [facility] TDAP (ADACEL) 2019-05-21 Completed University of VACCINE 00:00:00 [facility] TDAP (ADACEL) 2019-05-21 Completed University of VACCINE 00:00:00 [facility] TDAP (ADACEL) 2019-05-21 Completed University of VACCINE 00:00:00 [facility] TDAP (ADACEL) 2019-05-21 Completed University of VACCINE 00:00:00 [facility] TDAP (ADACEL) 2019-05-21 Completed University of VACCINE 00:00:00 [facility] TDAP (ADACEL) 2019-05-21 Completed University of VACCINE 00:00:00 [facility] TDAP (ADACEL) 2019-05-21 Completed University of VACCINE 00:00:00 [facility] TDAP (ADACEL) 2019-05-21 Completed University of VACCINE 00:00:00 [facility] TDAP (ADACEL) 2019-05-21 Completed University of VACCINE 00:00:00 [facility] TDAP (ADACEL) 2019-05-21 Completed University of VACCINE 00:00:00 [facility] TDAP (ADACEL) 2019-05-21 Completed University [...] (ADACEL) 2019-05-21 Completed University of VACCINE 00:00:00 [facility] TDAP (ADACEL) 2019-05-21 Completed University of VACCINE 00:00:00 [facility] TDAP (ADACEL) 2019-05-21 Completed University of VACCINE 00:00:00 [facility] TDAP (ADACEL) 2019-05-21 Completed University of VACCINE 00:00:00 [facility] TDAP (ADACEL) 2019-05-21 Completed University of VACCINE 00:00:00 [facility] TDAP (ADACEL) 2019-05-21 Completed University of VACCINE 00:00:00 [facility] TDAP (ADACEL) 2019-05-21 Completed University of VACCINE 00:00:00 [facility] TDAP (ADACEL) 2019-05-21 Completed University of VACCINE 00:00:00 [facility] TDAP (ADACEL) 2019-05-21 Completed University of VACCINE 00:00:00 [facility] TDAP (ADACEL) 2019-05-21 Completed University of VACCINE 00:00:00 [facility] TDAP (ADACEL) 2019-05-21 Completed University of VACCINE 00:00:00 [facility] Influenza Virus 2019-02-06 Completed Universit y of [...] Vaccine Quad .5 mL 00:00:00 [facility] Influenza Virus 2019-02-06 Completed Universit y of Vaccine Quad .5 mL 00:00:00 [facility] Influenza Virus 2019-02-06 [...] y of Vaccine Quad .5 mL 00:00:00 [facility] 6+ MO [facility] Influenza Virus 2019-02-06 Completed Universit y of Vaccine Quad .5 mL 00:00:00 [facility] Influenza Virus 2019-02-06 Completed Universit y of Vaccine Quad .5 mL 00:00:00 [facility] Influenza Virus 2019-02-06 Completed Universit y of Vaccine Quad .5 mL 00:00:00 [facility] Influenza Virus 2019-02-06 Completed Universit y of Vaccine Quad .5 mL 00:00:00 [facility] Influenza Virus 2019-02-06 [...] Vaccine Quad .5 mL 00:00:00 [facility] Influenza Virus 2019-02-06 Completed Universit y of Vaccine Quad .5 mL 00:00:00 [facility] Influenza Virus 2019-02-06 Completed Universit y of Vaccine Quad .5 mL 00:00:00 [facility] 6+ MO Branch Influenza Virus 2019-02-06 Completed Universit y of Vaccine Quad .5 mL 00:00:00 [facility] IM 6+ MO Branch Influenza Virus 2019-02-06 Completed Universit y of Vaccine Quad .5 mL 00:00:00 [facility] 6+ MO Branch Influenza Virus 2019-02-06 Completed Universit y of Vaccine Quad .5 mL 00:00:00 [facility] 6+ MO Branch Influenza Virus 2019-02-06 Completed Universit y of Vaccine Quad .5 mL 00:00:00 [facility] 6+ MO Branch Influenza Virus 2019-02-06 Completed Universit y of Vaccine Quad .5 mL 00:00:00 [facility] 6+ MO Branch Influenza Virus 2019-02-06 Completed Universit y of Vaccine Quad .5 mL 00:00:00 [facility] 6+ MO Branch Influenza Virus 2019-02-06 Completed Universit y of Vaccine Quad .5 mL 00:00:00 [facility] 6+ MO Branch Influenza Virus 2019-02-06 Completed Universit y of Vaccine Quad .5 mL 00:00:00 [facility] 6+ MO Branch Influenza Virus 2019-02-06 Completed Universit y of Vaccine Quad .5 mL 00:00:00 [facility] 6+ MO Branch Influenza Virus 2019-02-06 Completed Universit y of Vaccine Quad .5 mL 00:00:00 [facility] 6+ MO [place] Vital Signs Vital Name Observation Time Observation Value Comments Source Systolic blood 2022-09-05 17:22:00 139 mm[Hg] Univer sity of pressure [facility] Diastolic blood 2022-09-05 17:22:00 91 mm[Hg] Unive rsity of pressure [facility] Heart rate 2022-09-05 17:22:00 120 [facility] Respiratory rate 2022-09-05 17:22:00 18 /min [facility] Oxygen saturation in 2022-09-05 17:22:00 99 /min [facility] Arterial blood by [facility] Pulse oximetry Branch Body temperature 2022-09-05 13:43:00 37.11 Irene Univ ersity of [facility] Body weight 2022-09-05 13:43:00 68.04 kg Universi ty of [facility] BMI 2022-09-05 13:43:00 28.34 kg/m2 [facility] ty [facility] Systolic blood 2022-08-01 00:49:00 138 mm[Hg] Univer sity of pressure [facility] Diastolic blood 2022-08-01 00:49:00 104 mm[Hg] Unive rsity of pressure [facility] Heart rate 2022-08-01 00:49:00 108 /min [facility]i ty [facility] Respiratory rate 2022-08-01 00:49:00 18 /min Univ ersity [facility] Oxygen saturation in 2022-08-01 00:49:00 99 /min University of Arterial blood by [facility] Pulse oximetry Branch Body temperature 2022-07-31 22:52:00 37.11 Irene [facility] Body height 2022-07-31 22:52:00 154.9 cm [facility] Body weight 2022-07-31 22:52:00 68.04 kg [facility] BMI 2022-07-31 22:52:00 28.34 kg/m2 [facility] Systolic blood 2022-07-15 15:32:00 130 mm[Hg] Univer sity of pressure [facility] Diastolic blood 2022-07-15 15:32:00 90 mm[Hg] Unive rsity of pressure [facility] Heart rate 2022-07-15 15:31:00 81 /min [facility]i ty [facility] Body temperature 2022-07-15 15:31:00 36.94 Irene [facility] Respiratory rate 2022-07-15 15:31:00 16 /min Univ [facility] Body weight 2022-07-15 15:31:00 68.493 kg [facility] BMI 2022-07-15 15:31:00 28.53 kg/m2 [facility] Oxygen saturation in 2022-07-15 15:31:00 99 /min University of Arterial blood by [facility] Pulse oximetry Branch Systolic blood 2022-06-23 15:26:00 111 mm[Hg] Univer sity of pressure [facility] Diastolic blood 2022-06-23 15:26:00 75 mm[Hg] Unive rsity of pressure [facility] Heart rate 2022-06-23 15:26:00 108 /min [facility] ty [facility] Body temperature 2022-06-23 15:26:00 36.83 Irene [facility] Respiratory rate 2022-06-23 15:26:00 18 /min Univ [facility] Body height 2022-06-23 15:26:00 154.9 cm [facility] Body weight 2022-06-23 15:26:00 71.385 kg [facility] BMI 2022-06-23 15:26:00 29.74 kg/m2 [facility] Oxygen saturation in 2022-06-23 15:26:00 99 /min University of Arterial blood by [facility] Pulse oximetry Branch Systolic blood 2022-05-05 22:05:00 126 mm[Hg] Univer sity of pressure [facility] Diastolic blood 2022-05-05 22:05:00 75 mm[Hg] Unive rsity of pressure [facility] Heart rate 2022-05-05 22:05:00 99 /min [facility]i ty [facility] Respiratory rate 2022-05-05 22:05:00 16 /min Univ ersity [facility] Oxygen saturation in 2022-05-05 22:05:00 99 /min University of Arterial blood by [facility] Pulse oximetry Branch Body temperature 2022-05-05 18:24:00 37.11 Irene Univ [facility] Body height 2022-05-05 18:24:00 154.9 cm [facility]i ty [facility] Body weight 2022-05-05 18:24:00 54.432 kg [facility] ty [facility] BMI 2022-05-05 18:24:00 22.67 kg/m2 [facility] Systolic blood 2022-04-26 14:28:00 135 mm[Hg] Univer sity of pressure [facility] Diastolic blood 2022-04-26 14:28:00 95 mm[Hg] Unive rsity of pressure [facility] Heart rate 2022-04-26 14:28:00 93 /min [facility]i ty [facility] Body temperature 2022-04-26 14:28:00 36.89 Irene Univ [facility] Respiratory rate 2022-04-26 14:28:00 18 /min Univ ersity [facility] Body height 2022-04-26 14:28:00 154.9 cm [facility] Body weight 2022-04-26 14:28:00 54.432 kg [facility] ty [facility] BMI 2022-04-26 14:28:00 22.67 kg/m2 [facility] Oxygen saturation in 2022-04-26 14:28:00 100 /min University of Arterial blood by [place] [employer] [facility] Pulse oximetry Branch Systolic blood 2022-04-26 00:21:00 151 mm[Hg] Univer sity of pressure [facility] Diastolic blood 2022-04-26 00:21:00 98 mm[Hg] Unive rsity of pressure [facility] Heart rate 2022-04-26 00:21:00 98 /min [facility] Body temperature 2022-04-26 00:21:00 36.72 Irene [facility] Respiratory rate 2022-04-26 00:21:00 18 /min Univ [facility] Body height 2022-04-26 00:21:00 154.9 cm [facility] Body weight 2022-04-26 00:21:00 54.432 kg [facility] BMI 2022-04-26 00:21:00 22.67 kg/m2 [facility] Oxygen saturation in 2022-04-26 00:21:00 100 /min University of Arterial blood by [place] [employer] [facility] Pulse oximetry Branch Systolic blood 2022-04-09 14:39:00 122 mm[Hg] Univer sity of pressure [facility] Diastolic blood 2022-04-09 14:39:00 84 mm[Hg] Unive rsity of pressure [facility] Heart rate 2022-04-09 14:39:00 96 /min [facility]i ty [facility] Body height 2022-04-09 14:39:00 154.9 cm [facility] Body weight 2022-04-09 14:39:00 60.328 kg [facility] BMI 2022-04-09 14:39:00 25.13 kg/m2 [facility] Oxygen saturation in 2022-04-09 14:39:00 98 /min University of Arterial blood by [facility] Pulse oximetry Branch Systolic blood 2022-04-07 22:43:36 131 mm[Hg] Univer sity of pressure [facility] Diastolic blood 2022-04-07 22:43:36 83 mm[Hg] Unive rsity of pressure [facility] Heart rate 2022-04-07 22:43:36 113 /min [facility] ty [facility] Respiratory rate 2022-04-07 22:43:36 18 /min Univ ersity [facility] Oxygen saturation in 2022-04-07 22:43:36 97 /min University of Arterial blood by [facility] Pulse oximetry Branch Body temperature 2022-04-07 19:41:00 37.17 Irene [facility] Body height 2022-04-07 19:41:00 154.9 cm [facility] Body weight 2022-04-07 19:41:00 60.328 kg [facility] BMI 2022-04-07 19:41:00 25.13 kg/m2 [facility] Systolic blood 2022-03-24 19:00:00 125 mm[Hg] Univer sity of pressure [facility] Diastolic blood 2022-03-24 19:00:00 86 mm[Hg] Unive rsity of pressure [facility] Heart rate 2022-03-24 19:00:00 93 /min [facility] Respiratory rate 2022-03-24 19:00:00 17 /min Univ [facility] Oxygen saturation in 2022-03-24 19:00:00 97 /min University of Arterial blood by [facility] Pulse oximetry Branch Body temperature 2022-03-24 13:33:00 36.78 Irene Univ [facility] Systolic blood 2022-03-15 19:23:00 128 mm[Hg] Univer sity of pressure [facility] Diastolic blood 2022-03-15 19:23:00 89 mm[Hg] Unive rsity of pressure [facility] Heart rate 2022-03-15 19:23:00 104 /min [facility] Body weight 2022-03-15 19:23:00 60.328 kg [facility] BMI 2022-03-15 19:23:00 25.13 kg/m2 [facility] Oxygen saturation in 2022-03-15 19:23:00 98 /min University of Arterial blood by [place] [employer] [facility] Pulse oxim[facility] Branch Systolic blood 2022-03-15 [...] /min University of Arterial blood by [place] [employer] [facility] Pulse oximetry Branch Body temperature 2022-03-15 [...] /min University of Arterial blood by [place] [employer] Pulse oximetry Branch Body height 2022-03-11 14:19:00 [...] 100 /min University of Arterial blood by [facility] Pulse oximetry Branch Systolic blood 2022-02-27 13:19:00 [...] 99 /min University of Arterial blood by [facility] Pulse oximetry Branch Systolic blood 2022-02-21 08:06:00 [...] 97 /min University of Arterial blood by [facility] Pulse oximetry Branch Body temperature 2022-02-21 06:16:00 [...] 98 /min University of Arterial blood by [facility] Pulse oximetry Branch Body temperature 2022 16:56:00 [...] 98 /min University of Arterial blood by [facility] yessi Pulse oximetry Branch Systolic blood 2022-01-18 14:50:00 144 mm[Hg] Univer sity of pressure [facility] Diastolic blood 2022-01-18 14:50:00 92 mm[Hg] Unive rsity of pressure [facility] Heart rate 2022-01-18 14:50:00 94 /min [facility]i ty [facility] Respiratory rate 2022-01-18 14:50:00 20 /min Univ ersity of [facility] Oxygen saturation in 2022-01-18 14:50:00 99 /min University of Arterial blood by [facility] Pulse oximetry Branch Body weight 2022-01-18 10:18:00 54.432 kg [facility] ty [facility] BMI 2022-01-18 10:18:00 22.67 kg/m2 [...] 15:48:26 18 /min Univ [facility] Oxygen saturation in 2022-01-15 15:48:26 98 /min University of Arterial blood by [facility] Pulse oximetry Branch Body temperature 2022-01-15 13:32:00 37.11 Irene Univ [facility] Body height 2022-01-15 13:32:00 154.9 cm [facility] Body weight 2022-01-15 13:32:00 54.432 kg [facility] BMI 2022-01-15 13:32:00 22.67 kg/m2 [facility] Systolic blood 2022-01-09 00:37:11 127 mm[Hg] Univer sity of pressure [facility] Diastolic blood 2022-01-09 00:37:11 90 mm[Hg] Unive rsity of pressure [facility] Heart rate 2022-01-09 00:37:11 94 /min [facility] ty [facility] [place] [facility] [place] Body temperature 2022-01-09 00:37:11 37.11 Irene Univ ersity of [facility] Respiratory rate 2022-01-09 00:37:11 16 /min [facility] Oxygen saturation in 2022-01-09 00:37:11 97 /min University Arterial blood by [facility] Pulse oximetry Branch Body height 2022-01-08 23:03:00 154.9 cm [facility] [place] Body weight 2022-01-08 23:03:00 58.06 kg [facility] [place] BMI 2022-01-08 23:03:00 24.19 kg/m2 [facility] Systolic blood 2021-12-12 18:00:00 126 mm[Hg] Univer sity of [facility] Diastolic blood 2021-12-12 18:00:00 87 mm[Hg] Unive rsity of [facility] Heart rate 2021-12-12 18:00:00 86 /min [facility] ty [facility] [place] [facility] [place] Body temperature 2021-12-12 18:00:00 36.89 Irene [facility] [place] [facility] [place] Respiratory rate 2021-12-12 18:00:00 18 /min Univ ersity of [facility] Body height 2021-12-12 18:00:00 154.9 cm [facility] [place] Body weight 2021-12-12 18:00:00 57.153 kg [facility] BMI 2021-12-12 18:00:00 23.81 kg/m2 Universi ty of [facility] Procedures Procedure Date / Time Performing Clinician Source Performed CONSENT/REFUSAL FOR 2022-09-05 13:42:02 Doctor Unassigned, No Un [facility] DIAGNOSIS AND TREATMENT Name Medical Branch LIPASE 2022-07-31 23:13:00 Manju Newell [facility] TEST, SERUM 2022-07-31 23:13:00 Manju Newell Un [facility] COMP. METABOLIC PANEL 2022-07-31 23:13:00 Manju Newell Un [facility] ([id number]) [facility] CBC WITH DIFF 2022-07-31 23:13:00 Manju Newell [facility] CONSENT/REFUSAL FOR 2022-07-31 22:49:17 Doctor Unassigned, No Un [facility] DIAGNOSIS AND TREATMENT Name [facility] XR ANKLE 3+ VW RIGHT 2022-07-15 16:00:00 Cari Kaur [facility] XR FOOT 3+ VW RIGHT 2022-07-15 16:00:00 Cari Kaur [facility] XR FOOT 3+ VW RIGHT 2022-07-15 16:00:00 Cari Kaur [facility] PATIENT FINANCIAL 2022-07-15 15:25:53 Doctor Unassigned, No [facility] POLICY Name [facility] POCT MOLECULAR STREP 2022-06-23 16:06:00 Unknown, Attending [facility] ASSIGNMENT OF BENEFITS 2022-06-23 15:18:28 Doctor Unassigned, No [facility] COMP. METABOLIC PANEL 2022-05-05 19:14:00 [id number] CBC WITH DIFF 2022-05-05 19:14:00 Karon Norton [facility] POCT TEST 2022-05-05 19:00:00 Karon Norton [facility] URINALYSIS 2022-05-05 18:58:00 Karon Norton [facility] CT ABDOMEN PELVIS WO 2022-04-26 15:11:[address] [facility] CONTRAST [facility] COMP. METABOLIC PANEL 2022-04-26 14:49:00 Zion Bridges [facility] ([id number]) [facility] CBC WITH DIFF 2022-04-26 14:49:00 [facility] URINALYSIS 2022-04-26 14:49:00 [facility] POCT TEST 2022-04-26 14:45:00 Zion Bridges [facility] CONSENT/REFUSAL FOR 2022-04-26 14:22:29 Doctor Unassigned, No Un [facility] [place] DIAGNOSIS AND TREATMENT Name [facility] POCT TEST 2022-04-26 01:22:00 Singer [facility] ASSIGNMENT OF BENEFITS 2022-04-26 00:54:02 Doctor Unassigned, No [facility] URINALYSIS 2022-04-26 00:45:00 Singer [facility] CONSENT/REFUSAL FOR 2022-04-26 00:16:47 Doctor Unassigned, No [facility] [place] [facility] BASIC METABOLIC PANEL 2022-04-07 22:35:00 Olamide Garvin [facility] (NA, K, CL, CO2, Medical Branch GLUCOSE, BUN, CREATININE, CA) CBC WITH DIFF 2022-04-07 22:35:00 Olamide Garvin [facility] URINALYSIS 2022-04-07 21:36:00 Olamide Garvin [facility] URINE DRUG (IMMUNOASSAY) 2022-04-07 21:36:00 Olamide Garvin [facility] [place] - COMPREHENSIVE DRUG Medical [facility] nch SCREEN W/O REFLEX CONSENT/REFUSAL FOR 2022-04-07 19:29:15 Doctor Unassigned, No [facility] [place] DIAGNOSIS AND TREATMENT [facility] POCT TEST 2022-03-24 14:07:00 Kellie Duncan [facility]REFUSAL FOR 2022-03-24 13:27:20 Doctor Unassigned, No [facility] [place] DIAGNOSIS AND TREATMENT [facility] CT ABDOMEN PELVIS WO 2022-03-15 14:09:04 Anna Gould [facility] CONTRAST [facility] URINALYSIS 2022-03-15 13:53:00 Anna Gould [facility] POCT TEST 2022-03-15 13:52:00 Anna Gould [facility] CONSENT/REFUSAL FOR 2022-03-15 13:37:02 Doctor Unassigned, No [facility] [place] DIAGNOSIS AND TREATMENT Name Medical [place] POCT TEST 2022-03-11 14:59:00 Angelica Viveros [facility] FLU VACC ([id number]), 6 2022-02-27 13:34:55 Vijay Martinez [facility] MO-64 YRS, .5ML, IM, Medical [facility] QUAD (FLUCELVAX) NOTICE OF PRIVACY 2022-02-21 06:06:30 Doctor Unassigned, No [facility] PRACTICES [facility] CONSENT/REFUSAL FOR 2022-02-21 06:03:41 Doctor Unassigned, No [facility] [place] DIAGNOSIS AND TREATMENT Name [facility] XR ANKLE <3 VW RIGHT 2022 17:56:42 Maggie Hamilton [facility] CT ABDOMEN PELVIS W 2022 17:44:17 Maggie Hamilton [facility] CT TRAUMA CERVICAL SPINE 2022 17:43:49 Maggei Hamilton [facility] POCT TEST 2022 17:27:00 Maggie Hamilton [facility] COMP. METABOLIC PANEL 2022 17:17:00 Maggie Hamilton [facility] ([id number]) [facility] CBC WITH DIFF 2022 17:17:00 Maggie Hamilton [facility] CONSENT/REFUSAL FOR 2022 16:53:13 Doctor Unassigned, No [facility] [place] DIAGNOSIS AND TREATMENT Name [facility] US GALL BLADDER 2022-01-18 12:31:09 Bernardo Levy [place] o [facility] US PELVIS COMPLETE WITH 2022-01-18 12:21:13 Melvin Zhao [facility] TRANSVAGINAL [facility] CT ABDOMEN PELVIS W 2022-01-18 11:20:[address] [facility] CONTRAST [facility] POCT TEST 2022-01-18 10:57:00 Jayy Kennedy [facility] COVID-19 (ID NOW RAPID 2022-01-18 10:57:00 Jayy Kennedy [facility] TESTING) Medical Branch URINALYSIS 2022-01-18 10:47:00 Jayy Kennedy [facility] LIPASE 2022-01-18 10:29:00 Jayy Kennedy [facility] TEST, SERUM 2022-01-18 10:29:00 Haroon Kennedyian [facility] HEPATIC FUNCTION PANEL 2022-01-18 10:29:00 Jayy Kennedy [facility] ([id number]) (ALB,T.PRO,BILI Medical Branch T,BU/BC,ALT,AST,ALK PHOS) BASIC METABOLIC PANEL 2022-01-18 10:29:00 KennedyHaroonJayy [facility] (NA, K, CL, CO2, Medical Branch GLUCOSE, BUN, CREATININE, CA) CBC WITH DIFF 2022-01-18 10:29:00 Jayy Kennedy [facility] CONSENT/REFUSAL FOR 2022-01-18 10:13:31 Doctor Unassigned, No [facility] Name [facility] CT HEAD WO CONTRAST 2022-01-15 15:22:29 Danita [facility] TEST, SERUM 2022-01-15 14:36:00 Danita [facility] BASIC METABOLIC PANEL 2022-01-15 14:36:00 Danita [facility] (NA, K, CL, CO2, [facility] GLUCOSE, BUN, CREATININE, CA) CBC WITH DIFF 2022-01-15 14:36:00 Danita [facility] CONSENT/REFUSAL FOR 2022-01-15 13:28:12 Doctor Unassigned, No [facility] Name [facility] XR CERVICAL SPINE 4 VW 2022-01-09 00:29:16 Gabriela [facility] XR LUMBAR SPINE 4 VW 2022-01-09 00:29:16 Gabriela [facility] XR SPINE THORACIC 3 VW 2022-01-09 00:29:16 Humberto Ochoa [facility] URINALYSIS 2022-01-08 23:50:00 Humberto Ochoa [facility] CONSENT/REFUSAL FOR 2022-01-08 22:51:08 Doctor Unassigned, No Un [facility] DIAGNOSIS AND TREATMENT Name Medical Branch GALV ONLY - VAGINAL 2021-12-12 18:37:00 Prasanna Vargas [facility] PATHOGENS BY NUCLEIC Medical [facility] ACID TESTING URINE CULTURE 2021-12-12 18:32:00 Prasanna Vargas [place] o [facility] POCT TEST 2021-12-12 18:31:00 Prasanna Vargas [facility] POCT URINALYSIS W/O 2021-12-12 18:31:00 Prasanna Vargas [facility] SPECIFIC GRAVITY [facility] Encounters Start End Encounter Admission Attending Care Care Encounter Source Date/Time Date/Time Type Type Clinicians Facility Department ID 2021-03-14 Emergency [facility] [id number] Univers 03:14:31 ity of [facility] 2021-03-13 Emergency [facility] [id number] Univers 20:05:20 ity of [facility] 2021-03-13 Emergency [facility] [id number] Univers 12:48:28 ity of [facility] 2021-03-13 Emergency [facility] [id number] Univers 02:43:51 ity of [facility] 2021-03-13 Emergency [facility] [id number] Univers 00:27:09 ity of [facility] 2021-03-12 Emergency [facility] [id number] Univers 22:10:36 ity of [facility] 2021-03-12 Emergency [facility] [id number] Univers 20:04:05 ity of [facility] 2021-03-12 Emergency [facility] [id number] Univers 15:25:05 ity of [facility] 2021-03-12 Emergency [facility] [id number] Univers 11:43:36 ity of [facility] 2021-03-12 Emergency [facility] [id number] Univers 07:41:37 ity of [facility] 2021-03-12 Emergency [facility] [id number] Univers 05:43:47 ity of [facility] 2021-03-12 Emergency [facility] [id number] Univers 03:43:41 ity of [facility] 2021-03-12 Emergency [facility] [id number] Univers 01:31:27 ity of [facility] 2021-03-12 Emergency X [facility] ERT [id number] Univers 00:56:44 ity of [facility] 2021-03-12 Emergency [facility] [id number] Univers 00:56:31 ity of [facility] 2021-03-11 Emergency [facility] [id number] Univers 17:47:02 ity of [facility] 2021-03-11 Emergency [facility] [id number] Univers 16:27:15 ity of [facility] 2021-03-11 Emergency [facility] [id number] Univers 12:00:58 ity of [facility] 2021-03-11 Emergency [facility] [id number] Univers 10:33:59 ity of [facility] 2021-03-11 Emergency [facility] [id number] Univers 01:36:52 ity of [facility] 2021-03-10 Emergency [facility] [id number] Univers 23:35:34 ity of [facility] 2021-03-10 Emergency [facility] [id number] Univers 19:06:16 ity of [facility] 2021-03-10 Emergency [facility] [id number] Univers 12:39:47 ity of [facility] 2021-03-10 Emergency [facility] [id number] Univers 06:54:04 ity of [facility] 2021-03-09 Outpatient P [facility] CHRIS [id number] Univers 13:25:44 ity of [facility] 2021-03-09 Outpatient P [facility] [id number] Univers 13:08:01 ity of [facility] 2021-03-09 Outpatient P [facility] [id number] Univers 12:37:25 ity of [facility] 2021-03-09 Outpatient P [facility] [id number] Univers 11:51:20 ity of [facility] 2022-10-03 2022-10-03 Letter Gurjit Lim [facility] 1.2.840.114 [id number] Univers 00:00:00 00:00:00 (Out) HEALTH 350.1.13.10 it y of [place] 4.2.7.2.686 [place] as TOÑO?BLEA [id number] [address] OFFICE [facility] 2022-10-02 2022-10-02 Outpatient R SHARMIN [facility] [id number] Univers 10:00:00 10:00:00 , CELINA it y of [facility] 2022-10-01 2022-10-01 Outpatient R ARJUN [facility] [id number] Univers 09:40:00 09:40:00 BINPEARL ankush o f [facility] 2022-09-25 2022-09-25 Telephone [facility] 1..907.672 [id number] Univers 00:00:00 00:00:00 Rad [place] 350.1.13.10 ity [facility] 4.2.7.2.[place] [id number] [address] 2022-09-21 2022-09-21 Outpatient R LEXY [facility] [id number] Univers 09:30:00 09:30:00 KASSANDRA ity of [facility] 2022-09-21 2022-09-21 Letter [facility] 1..840.114 [id number] Univers 00:00:00 00:00:00 (Out) [facility] 350.1.13.10 it y of [place] 4.2.7.2.686 Martin as TOÑO?BLEA [id number] [address] 2022-09-21 2022-09-21 Telephone [facility] 1.2.566.373 [id number] Univers 00:00:00 00:00:00 [facility] 350.1.13.10 it y of [place] 4.2.7.2.686 [place] as TOÑO?BLEA [id number] Ct dical KNEY [address] [place] [address] 2022-09-14 2022-09-14 Outpatient R LEXY [facility] [id number] Univers 09:30:00 09:30:00 KASSANDRA lechuga [facility] 2022-09-12 2022-09-12 Telephone [facility] 1.2.370.345 [id number] Univers 00:00:00 00:00:00 KassandraGeorge Mobile 350.1.13.10 it y of [place] 4.2.7.2.686 [place] as TOÑO?BLEA [id number] [address] 2022-09-07 2022-09-07 Outpatient R [facility] [id number] Univers 11:30:00 11:30:00 KASSANDRA [facility] 2022-09-05 2022-09-05 Emergency X [facility] ERT [id number] Univers 08:44:00 13:15:00 KENNEDY [facility] 2022-09-05 2022-09-05 Emergency [facility] 1.2.008.038 [id number] Univers 08:44:00 13:15:00 Cynise DIXONDAYAMI 350.1.13.10 i ty of [place] 4.2.7.2.686 [place] [id number] [address] 2022-09-04 2022-09-04 Telephone [facility] 1.2.116.814 [id number] Univers 00:00:00 00:00:00 [facility] 350.1.13.10 it y of [facility] 4.2.7.2.686 [place] as TOÑO?BLEA [id number] Ct whit [place] [address] [place] [address] 2022-09-04 2022-09-04 Patient Ponce [facility] 1.2.840.114 [id number] Univers 00:00:00 00:00:00 Secure Mslaila [place] 350.1.13.10 ity of [place].2.7.2.686 [place] [id number] Ct dicaliyah [facility] 059 [facility] 2022-08-29 2022-08-29 Outpatient R SHARMIN [facility] [id number] Univers 09:00:00 09:00:00 , CELINA it y of [facility] 2022-08-14 2022-08-14 Patient Doctor [facility] 1.2.840.114 [id number] Univers 00:00:00 00:00:00 Secure Msg Unassigned, HEALTH 350.1.13.10 ity of [place] 4.2.7.2.686 [place] as TOÑO?BLEA [id number] Ct dicaliyah [place] 092 [facility] OFFICE [facility] 2022-07-31 2022-07-31 Emergency X [place], [facility] ERT [id number] Univers 17:56:00 20:30:00 SCOTTIECLARENCEFRANDY it y [facility] 2022-07-31 2022-07-31 Emergency [facility] 1.2.542.290 [id number] Univers 17:56:00 20:30:00 Manju [place] 350.1.13.10 ity of [facility] 4.2.7.2.686 [place] [facility] [id number] [address] 2022-07-15 2022-07-15 Outpatient R [facility] [id number] Univers 09:46:45 23:59:00 CARI fitzpatrick f [facility] 2022-07-15 2022-07-15 [facility] 1.2.840.114 [id number] Univers 09:46:45 23:59:00 Encounter Cari Farmer [facility] 350.1.13.10 ity of [facility] 4.2.7.2.686 [place] as TOÑO?BLEA [id number] Ct dicaliyah [place] 808 [facility] 2022-07-15 2022-07-15 [facility] 1.2.840.114 [id number] Univers 09:46:45 23:59:00 Encounter Cari Farmer HEALTH 350.1.13.10 ity of [facility] 4.2.7.2.686 [place] as TOÑO?BLEA [id number] Ct dicaliyah [place] 808 [facility] 2022-07-15 2022-07-15 Urgent Cari Kaur [facility] 1.2.840 .114 [id number] Univers 09:20:00 10:29:17 Care Unknown, Attending HEALTH 350.1.13.10 ity of [facility] 4.2.7.2.686 [place] TOÑO?BLEA [id number] [address] MEDICAL OFFICE [facility] 2022-07-15 2022-07-15 Orders Doctor JORDAN 1.2.840.114 [id number] Univers 00:00:00 00:00:00 Only Unassigned, YAZMIN 350.1.13.10 ity of [place] [facility] 4.2.7.2.686 [place] as [id number] [address] 2022-06-23 2022-06-23 Outpatient [facility] [id number] Univers 09:20:00 10:27:39 [facility] 2022-06-23 2022-06-23 Urgent [facility] 1.2.840. 114 [id number] Univers 09:20:00 10:27:39 Care Unknown, Attending HEALTH 350.1.13.10 ity of [facility] 4.2.7.2.686 [place] as TOÑO?BLEA [id number] [address] MEDICAL OFFICE [facility] 2022-06-23 2022-06-23 Orders Doctor JORDAN 1.2.840.114 [id number] Univers 00:00:00 00:00:00 Only Unassigned, YAZMIN 350.1.13.10 ity of [place] [facility] 4.2.7.2.686 [place] as [id number] [address] 2022-06-15 2022-06-15 Outpatient R [facility] [id number] Univers 09:40:00 09:40:00 LIAN [facility] 2022-05-29 2022-05-29 Outpatient Farzana [facility] [id number] Univers 08:00:00 08:00:00 KASSANDRA [facility] 2022-05-15 2022-05-15 Outpatient R [facility] [id number] Univers 09:20:00 09:20:00 BENNETT lechuga [facility] 2022-05-11 2022-05-11 Outpatient R LEXY [facility] [id number] Univers 09:30:00 09:30:00 KASSANDRA lechuga [facility] 2022-05-05 2022-05-05 Emergency X ERROL [facility] ERT [id number] Univers 12:26:00 16:11:00 KARON lechuga [facility] 2022-05-05 2022-05-05 Emergency Errol, [facility] 1.2.840.114 [id number] Univers 12:26:00 16:11:00 Karon LAWSON 350.1.13.10 i ty of [place] 4.2.7.2.686 [facility] [id number] [address] 2022-05-01 2022-05-01 Outpatient R PRASANNA VARGAS [facility] [id number] Univers 00:00:00 00:00:00 ity [facility] 2022-04-26 2022-04-26 Emergency X BRIDGES, [facility] ERT [id number] Univers 08:30:00 09:59:00 ZION lechuga [facility] 2022-04-26 2022-04-26 Emergency Brid[facility] 1.2.017.870 [id number] Univers 08:30:00 09:59:00 Zion LAWSON 350.1.13.10 i ty of [facility] 4.2.7.2.686 [facility] [id number] [address] 2022-04-25 2022-04-25 Emergency X GUTIERREZ, [facility] ERT [id number] Univers 18:23:00 21:55:00 KENNEDY itchino [facility] 2022-04-25 2022-04-25 Emergency GutierrezLOVEL[facility] 1.2.851.723 [id number] Univers 18:23:00 21:55:00 Kennedy [place] 350.1.13.10 i ty of [facility] 4.2.7.2.686 [facility] [id number] [address] 2022-04-19 2022-04-19 Outpatient R JC, [facility] [id number] Univers 10:00:00 10:00:00 LIAN lechuga [facility] 2022-04-12 2022-04-12 Telephone [facility] 1.2.722.939 [id number] Univers 00:00:00 00:00:00 [facility] 350.1.13.10 it y of [place] 4.2.7.2.686 [place] as TOÑO?BLEA [id number] [address] OFFICE [facility] 2022-04-11 2022-04-11 Telephone [facility]EL[facility] 1.2.840.114 [id number] Univers 00:00:00 00:00:00 [facility] 350.1.13.10 ity of [place] 4.2.7.2.686 [place] as TOÑO?BLEA [id number] [address] OFFICE [facility] 2022-04-10 2022-04-10 Telephone [facility] 1.2.778.633 [id number] Univers 00:00:00 00:00:00 [facility] 350.1.13.10 it y of [place] 4.2.7.2.686 [place] as TOÑO?BLEA [id number] [address] OFFICE [facility] 2022-04-09 2022-04-09 Office [facility] 1.2.840.114 [id number] Univers 09:30:00 09:30:00 Visit [facility] 350.1.13.10 it y of [place] 4.2.7.2.686 [place] as TOÑO?BLEA [id number] [address] OFFICE [facility] 2022-04-09 2022-04-09 Outpatient R LEXY [facility] [id number] Univers 09:30:00 09:21:44 KASSANDRAAUGUSTO maradiagachino [facility] 2022-04-07 2022-04-07 Emergency X VIRGIE [facility] ERT [id number] Univers 13:41:00 17:49:00 OLAMIDE lechuga [facility] 2022-04-07 2022-04-07 Emergency Vir[facility] 1.2.824.756 [id number] Univers 13:41:00 17:49:00 Olamide Laila LAWSON 350.1.13.10 ity of [facility] 4.2.7.2.686 [facility] [id number] [address] 2022-04-04 2022-04-04 Telephone [facility] 1.2.597.358 [id number] Univers 00:00:00 00:00:00 KassandraAdvanced [employer] 350.1.13.10 it y of [facility] 4.2.7.2.686 [place] as TOÑO?BLEA [id number] [address] OFFICE [facility] 2022-04-02 2022-04-02 Outpatient R LEXY [facility] [id number] Univers 10:30:00 10:30:00 KASSANDRA itchino [facility] 2022-03-28 2022-03-28 Patient Doctor [facility] 1.2.840.114 [id number] Univers 00:00:00 00:00:00 Secure Ms [facility] 350.1.13.10 ity of [place] 4.2.7.2.686 [place] as TOÑO?BLEA [id number] [address] 2022-03-24 2022-03-24 Emergency X PERLA, [facility] ERT [id number] Univers 07:35:00 13:11:00 KELLIE lechuga [facility] 2022-03-24 2022-03-24 [facility] 1.2.590.188 [id number] Univers 07:35:00 13:11:00 Kellie [place] 350.1.13.10 ity of [place] 4.2.7.2.686 [facility] [id number] [address] 2022-03-23 2022-03-23 Outpatient R LEXY [facility] [id number] Univers 10:30:00 10:30:00 KASSANDRA ankush [facility] 2022-03-23 2022-03-23 Telephone [facility] 1.2.840.114 [id number] Univers 00:00:00 00:00:00 [facility] 350.1.13.10 ity of [place] 4.2.7.2.686 [place] as TOÑO?BLEA [id number] [facility] 2022-03-22 2022-03-22 Telephone [facility] 1.2.840.114 [id number] Univers 00:00:00 00:00:00 [facility] 350.1.13.10 ity of [place] 4.2.7.2.686 [place] as TOÑO?BLEA [id number] [facility] [address] 2022-03-22 2022-03-22 Refill [facility] 1.2.840.114 [id number] Univers 00:00:00 00:00:00 [facility] 350.1.13.10 ity of [place] 4.2.7.2.686 [place] as TOÑO?BLEA [id number] [address] 2022-03-21 2022-03-21 Telephone [facility] 1.2.840.114 [id number] Univers 00:00:00 00:00:00 [facility] 350.1.13.10 ity of [place] 4.2.7.2.686 [place] as TOÑO?BLEA [id number] [address] 2022-03-15 2022-03-15 Outpatient R [facility] [id number] Univers 14:00:00 14:36:19 REJI lechuga o f [facility] 2022-03-15 2022-03-15 Office [facility] 1.2.840.114 [id number] Univers 14:00:00 14:36:19 Visit Reji [place] 350.1.13.10 ity of [place].2.7.2.[place] [id number] Ct whit Schroeder9 [facility] 2022-03-15 2022-03-15 Emergency X DARRIAN [facility] ERT [id number] Univers 08:40:00 10:47:00 ANNA ity of [facility] 2022-03-15 2022-03-15 Emergency EllisFormerly [facility] 1.2.840.114 [id number] Univers 08:40:00 10:47:00 Anna LAWSON 350.1.13.10 i ty of [facility] 4.2.7.2.686 [facility] [id number] [address] 2022-03-14 2022-03-14 Outpatient R PRASANNA VARGAS [facility] [id number] Univers 10:30:00 10:30:00 ity [facility] 2022-03-11 2022-03-11 Emergency X REGINEBILLLOVELACE [facility] ERT [id number] Univers 09:22:00 12:15:00 [facility]22-[facility]-11 2022-03-11 Emergency FeliceL[facility]EL[facility] 1.2.840.114 [id number] Univers 09:22:00 12:15:00 Shinjarad [place] 350.1.13.10 i ty of [facility] 4.2.7.2.686 [facility] [id number] [address] 2022-03-06 2022-03-06 Outpatient R LEXY [facility] [id number] Univers 08:30:00 08:30:00 KASSANDRA [facility] 2022-03-02 2022-03-02 Telephone [facility] 1.2.840.114 [id number] Univers 00:00:00 00:00:00 Darrion Playnery [facility] 350.1.13.10 ity of [place] 4.2.7.2.686 [place] as TOÑO?BLEA [id number] [address] MEDICAL OFFICE [facility] 2022-02-27 2022-02-27 Outpatient R LEXY [facility] [id number] Univers 09:30:00 09:49:42 KASSANDRA [facility] 2022-02-27 2022-02-27 Office [facility] 1.2.840.114 [id number] Univers 09:30:00 09:49:42 Visit KassandraGeorge [employer] [id number] it y of [facility] [id number] Martin as TOÑO?BLEA [phone] [address] OFFICE [facility] 2022-02-27 2022-02-27 Office [facility] 1.2.840.114 [id number] Univers 08:00:00 09:12:17 Visit Vijay PETTY [id number] it y of [place] [id number] Martin as TOÑO?BLEA [phone] [address] OFFICE [facility] 2022-02-26 2022-02-26 [facility] [id number] Univers 11:30:00 11:30:00 KASSANDRA le[facility]uga [facility] 2022-02-21 2022-02-21 Emergency X [facility] ERT [id number] Univers 01:20:00 03:44:00 MAGGIE lechuga [facility] 2022-02-21 2022-02-21 Emergency [facility] 1.2.840.114 [id number] Univers 01:20:00 03:44:00 [facility] [id number] ity of [place] [id number] [place] [facility] [phone] [address] 2022-02-19 2022-02-19 Patient [facility] 1.2.840.114 [id number] Univers 00:00:00 00:00:00 Secure Msg Kendal Amaral HEALTH 350.1.13.10 ity of [place] 4.2.7.2.686 [place] TOÑO?BLEA [phone] [address] OFFICE [facility] 2022-02-19 2022-02-19 Patient [facility] 1.2.840.114 [id number] Univers 00:00:00 00:00:00 Secure Msg Kendal Amaral HEALTH 350.1.13.10 ity of [place] 4.2.7.2.686 [place] TOÑO?BLEA [phone] [address] OFFICE [facility] 2022-02-19 2022-02-19 Patient Suzette [facility] 1.2.768.938 [id number] Univers 00:00:00 00:00:00 Secure Msg Ade WATERSY 350.1.13.10 ity of [facility] 4.2.7.2.686 [place] [phone] [facility] [address] 2022 2022 Emergency X [facility] ERT [id number] Univers 11:58:00 15:13:00 MAGGIE [facility] 2022 2022 Emergency [facility] 1.2.840.114 [id number] Univers 11:58:00 15:13:00 Maggie LAWSON 350.1.13.10 ity kenan B[place] 4.2.7.2.686 [place] [facility] [phone] [facility] [address] 2022-02-09 2022-02-09 [facility] [id number] Univers 09:00:00 09:00:00 CRICKET lechuga o f [facility] 2022-02-06 2022-02-06 Outpatient R [facility] [id number] Univers 10:00:00 10:00:00 VIJAY lechuga [facility] 2022-02-05 2022-02-05 Nurse Nurse, Filippo [facility] 1.2.840.114 [id number] Univers 09:45:00 10:05:00 Visit [facility] 350.1.13.10 itNadiya 4.2.7.2.686 [place] as TOÑO?BLEA [phone] [facility] [address] MEDICAL OFFICE BUILDING 2022-02-05 2022-02-05 Outpatient R OLIVER [facility] [id number] Univers 09:20:00 09:20:00 FLACO lechuga o f [facility] 2022-01-26 2022-01-26 Case Alicia Prasanna [facility] 1.2.102.006 [id number] Univers 00:00:00 00:00:00 Management Jm LAWSON 350.1.13.10 ity kenan BISHOP 4.2.7.2.686 [facility] [phone] [address] dicaliyah [facility] [address] BUILDING 2022-01-22 2022-01-22 Outpatient [facility] [id number] Univers 11:00:00 11:00:00 VIJAY [facility] 2022-01-18 2022-01-18 Emergency X GARDENIA, [facility] ERT [id number] Univers 05:17:00 10:25:00 BERNARDO ity [facility] 2022-01-18 2022-01-18 Emergency Jayy Kennedy TRAUMA 1.2.840.11 [id number] Univers 05:17:00 10:25:00 Bernardo Levy [place] 350.1.13.10 [facility]2.7.2.686 [facility] [phone] [facility] [address] 2022-01-15 2022-01-15 Emergency X [facility] ERT [id number] Univers 08:34:00 10:49:00 MAURA lechuga [facility] 2022-01-15 2022-01-15 Emergency Larry Perez R [facility] 1.2.840.1 14 [id number] Univers 08:34:00 10:49:00 Maura Samayoa [facility].13.10 [facility] 4.2.7.2.686 [facility] [phone] [facility] [address] 2022-01-08 2022-01-08 Emergency X GABRIELA, [facility] ERT [id number] Univers 18:04:00 20:09:00 HUMBERTO [facility] 2022-01-08 2022-01-08 Emergency [facility] 1.2.840.114 [id number] Univers 18:04:00 20:09:00 Humberto LAWSON 350.1.13.10 i ty [facility] 4.2.7.2.686 [facility] [phone] [place] [address] 2021-12-12 2021-12-12 Outpatient R DEYVI [facility] [id number] Univers 13:30:00 13:40:21 TETO lechuga [facility] 2021-12-12 2021-12-12 Office Prasanna Vargas [facility] 1.2.840.114 [id number] Univers 13:30:00 13:40:21 Visit Teto Carnes 350.1.13.10 [facility] 4.2.7.2.686 [phone] dical [address] 2021-12-12 2021-12-12 Outpatient R DEYVI, [facility] [id number] Univers 13:30:00 13:40:[facility] 2021-12-12 2021-12-12 Outpatient R DEYVI, [facility] [id number] Univers 13:30:00 13:40:21 [facility] 2021-12-11 2021-12-11 Outpatient R SUZETTE, [facility] [id number] Univers 16:15:00 16:15:00 ADEFormerly [facility] 2021-12-05 2021-12-05 Outpatient R LYSSA, [facility] [id number] Univers 14:15:00 14:15:00 ROMULO [facility] 2021-11-28 2021-11-28 Emergency X ERROL, [facility] ERT [id number] Univers 08:49:00 11:02:00 KARON [facility] 2021-11-28 2021-11-28 Emergency [facility] 1.2.840.114 [id number] Univers 08:49:00 11:02:00 Karon LLUU 350.1.13.10 i ty of [place] 4.2.7.2.686 [facility] [phone] [address] 2021-11-24 2021-11-24 Emergency X DEV, K [facility] ERT [id number] Univers 18:14:00 21:04:00 [facility] 2021-11-24 2021-11-24 Emergency Dev, K [facility] 1.2.840.114 [id number] Univers 18:14:00 21:04:00 Sharlene LAWSON 350.1.13.10 i ty of [place] 4.2.7.2.686 [facility] [phone] [address] 2021-11-24 2021-11-24 Telephone Akinsigracie, [facility] 1.2.840.114 [id number] Univers 00:00:00 00:00:00 Cricket C COIL FORMER 350.1.13.10 ity of [facility] 4.2.7.2.686 Martin as MATERNAL [id number] Med ical & CHILD 107 [facility] 2021-11-20 2021-11-20 Patient Robb [facility] 1.2.840.114 [id number] Univers 00:00:00 00:00:00 Secure Msg Kendal [facility] 350.1.13.10 ity of [place] 4.2.7.2.686 Martin as TOÑO?BLEA [phone] Ct whit MINOR [address] MEDICAL OFFICE BUILDING 2021-11-19 2021-11-19 Letter NoamJORDAN 1.2.840.114 [id number] Univers 00:00:00 00:00:00 (Out) Leslie ARCE 350.1.13.10 it y of [facility] 4.2.7.2.686 [place] as [id number] [address] 2021-11-18 2021-11-18 Outpatient R [facility] [id number] Univers 10:41:40 23:59:00 FLACO lechuga o f [facility] 2021-11-18 2021-11-18 Hospital [facility] 1.2.090.869 [id number] Univers 10:41:40 23:59:00 Encounter [facility] 350.1.13.10 ity of [place] 4.2.7.2.686 [place] as TOÑO?BLEA [phone] Ct whit [place] [facility] [facility] OFFICE [facility] 2021-11-18 2021-11-18 Urgent [facility] 1.2.840.114 [id number] Univers 10:20:00 10:53:20 Care [facility] 350.1.13.10 i ty of [place] 4.2.7.2.686 [place] as TOÑO?BLEA [phone] Ct whit [place] [address] [facility] OFFICE [facility] 2021-11-09 2021-11-09 Outpatient R APURVA [facility] [id number] Univers 10:30:00 10:30:00 CELINA lechuga [facility] 2021-10-25 2021-10-25 Urgent MitchellRamseyIleana [facility] 1.2.840.114 [id number] Univers 13:20:00 13:20:00 Care Flaco Boyd HEALTH 350.1.13.10 ity of [place] 4.2.7.2.686 [place] as TOÑO?BLEA [phone] [facility] [address] MEDICAL OFFICE [facility] 2021-10-25 2021-10-25 Outpatient R MITCHELL [facility] [id number] Univers 13:20:00 12:47:59 ILEANA ity [facility] 2021-10-25 2021-10-25 Patient Juan [facility] 1.2.840.114 [id number] Univers 00:00:00 00:00:00 Secure Msg Vijay HEALTH 350.1.13.10 ity of [place] 4.2.7.2.686 [place] as TOÑO?BLEA [phone] [facility] [address] [facility] OFFICE [facility] 2021-10-25 2021-10-25 Telephone Juan [facility] 1.2.774.994 [id number] Univers 00:00:00 00:00:00 Vijay HEALTH 350.1.13.10 it y of [place] 4.2.7.2.686 [place] as TOÑO?BLEA [phone] [facility] [address] [facility] OFFICE [facility] 2021-10-25 2021-10-25 Telephone Provider, [facility] 1.2.840.114 [id number] Univers 00:00:00 00:00:00 Ang Db HEALTH 350.1.13.10 it y of Urgent Care [place] 4.2.7.2.686 [place] TOÑO?BLEA [phone] [facility] [address] MEDICAL OFFICE [facility] 2021-10-25 2021-10-25 Telephone Nurse, Filippo [facility] 1.2.840.114 [id number] Univers 00:00:00 00:00:00 Db Urgent HEALTH 350.1.13.10 ity of Care [place] 4.2.7.2.686 [place] as TOÑO?BLEA [phone] [facility] [address] MEDICAL OFFICE [facility] 2021-10-24 2021-10-24 Outpatient R LYSSA [facility] [id number] Univers 10:15:00 10:15:00 ROMULO [facility] 2021-10-24 2021-10-24 Outpatient Farzana OMALLEY [facility] [id number] Univers 10:15:00 10:15:00 [facility] 2021-10-11 2021-10-11 Outpatient Farzana OMALLEY [facility] [id number] Univers 09:30:00 09:30:00 [facility] 2021-10-10 2021-10-10 Outpatient R PRASANNA VARGAS [facility] [id number] Univers 13:30:00 13:30:00 ity [facility] 2021-10-10 2021-10-10 Outpatient R ALICIA PRASANNA [facility] [id number] Univers 13:30:00 13:30:[facility] 2021-10-10 2021-10-10 Outpatient R ALICIA [facility] [id number] Univers 13:30:00 13:30:[facility] 2021-10-10 2021-10-10 Outpatient R PRASANNA VARGAS [facility] [id number] Univers 13:30:00 13:30:00 [facility] 2021-10-10 2021-10-10 Out[facility] [id number] Univers 13:30:00 13:30:00 [facility] 2021-10-10 2021-10-10 Outpatient Farzana VARGAS PRASANNA [facility] [id number] Univers 13:30:00 13:30:00 [facility] 2021-10-10 2021-10-10 Outpatient R ALICIA [facility] [id number] Univers 13:30:00 13:30:00 [facility] 2021-10-05 2021-10-05 Patient Robb [facility] 1.2.840.114 [id number] Univers 00:00:00 00:00:00 Secure [facility] 350.1.13.10 ity [facility] 4.2.7.2.686 [place] as TOÑO?BLEA [phone] [address] MEDICAL OFFICE [facility] 2021-10-05 2021-10-05 Patient Robb [facility] 1.2.840.114 [id number] Univers 00:00:00 00:00:00 Secure Msg Kendal PETTY 350.1.13.10 ity of [place] 4.2.7.2.686 [place] as TOÑO?BLEA [phone] [address] MEDICAL OFFICE [facility] 2021-10-04 2021-10-04 Pre Visit HILARIO Rodriguez 1.2.595.367 [id number] Univers 00:00:00 00:00:00 Outreach Melia TELLO 350.1.13.10 ity of [place] 4.2.7.2.686 [place] [phone] [place] [address] [place] 2021-09-28 2021-09-28 Office [facility] 1.2.840.114 [id number] Univers 13:30:00 13:45:00 Visit Celina A FLACO 350.1.13.10 ity of [facility] 4.2.7.2.686 [place] [id number] [address] 2021-09-28 2021-09-28 Outpatient R APURVA [facility] [id number] Univers 13:30:00 13:30:00 CELINA [facility] 2021-09-28 2021-09-28 Outpatient R APURVA [facility] [id number] Univers 13:30:00 13:30:00 CELINA [facility] 2021-09-28 2021-09-28 Patient [facility] 1.2.840.114 [id number] Univers 00:00:00 00:00:00 Secure Msg Celina Cannon FLACO 350.1.13.10 ity of [facility] 4.2.7.2.686 [place] [id number] [address] 2021-09-27 2021-09-27 Outpatient R DEYVI [facility] [id number] Univers 14:00:00 14:00:00 TETO ity [facility] 2021-09-27 2021-09-27 Outpatient R ADITI [facility] [id number] Univers 09:30:00 09:30:00 DANIA ity [facility] 2021-09-27 2021-09-27 Outpatient R ADITI [facility] [id number] Univers 09:30:00 09:30:00 DANIA itchino [facility] 2021-09-27 2021-09-27 Outpatient R ADITI [facility] [id number] Univers 09:30:00 09:30:00 DANIA ity [facility] 2021-09-26 2021-09-26 Outpatient R AKINLYNSEY, [facility] [id number] Univers 10:45:00 10:45:00 CRICKET ity o f [facility] 2021-09-26 2021-09-26 Outpatient R AKINEVENSPE, [facility] [id number] Univers 10:45:00 10:45:00 CRICKET ity o f [facility] 2021-09-26 2021-09-26 Patient [facility] 1.2.840.114 [id number] Univers 00:00:00 00:00:00 Secure [facility] HEALTH 350.1.13.10 ity of [place] 4.2.7.2.686 [place] as TOÑO?BLEA [phone] [address] MEDICAL OFFICE [facility] 2021-09-26 2021-09-26 Patient Juan [facility] 1.2.840.114 [id number] Univers 00:00:00 00:00:00 Secure [facility] HEALTH 350.1.13.10 ity of [place] 4.2.7.2.686 [place] as TOÑO?BLEA [phone] [facility] [address] MEDICAL OFFICE [facility] 2021-09-25 2021-09-25 Urgent OliverFlaco patton [facility] 1.2.840. 114 [id number] Univers 10:20:00 11:10:42 Care Mitchell, Ileana HEALTH 350.1.13.10 ity of [place] 4.2.7.2.686 [place] as TOÑO?BLEA [phone] [facility] [address] MEDICAL OFFICE BUILDING 2021-09-25 2021-09-25 Outpatient R OLIVER [facility] [id number] Univers 10:20:00 11:10:42 FLACO lechuga o susan [facility] 2021-09-25 2021-09-25 Outpatient R OLIVER [facility] [id number] Univers 10:20:00 10:20:00 FLACO hireny o f [facility] 2021-09-25 2021-09-25 Outpatient R PRASANNA VARGAS [facility] [id number] Univers 10:00:00 10:00:00 ity of [facility] 2021-09-25 2021-09-25 Telephone [facility] 1.2.840.114 [id number] Univers 00:00:00 00:00:00 [facility] 350.1.13.10 i ty of [place] 4.2.7.2.686 [place] as TOÑO?BLEA [phone] Ct dical KNEY [address] MEDICAL OFFICE [facility] 2021-09-25 2021-09-25 Patient AliciaPrasanna [facility] 1.2.974.586 [id number] Univers 00:00:00 00:00:00 Secure Msg [facility] 350.1.13.10 ity of [place] 4.2.7.2.686 [place] [phone] Ct dical [facility] 134 [facility] 2021-09-25 2021-09-25 Telephone Brandon [facility] 1.2.840.114 [id number] Univers 00:00:00 00:00:00 Cricket Lopez COIL FORMER 350.1.13.10 ity of [facility] 4.2.7.2.686 [place] as MATERNAL [phone] Med ical & CHILD [address] [place] [address] 2021-09-25 2021-09-25 Telephone Apurva [facility] 1.2.419.624 [id number] Univers 00:00:00 00:00:00 Celina SAM 350.1.13.10 ity of [facility] 4.2.7.2.686 [place] [id number] [address] 2021-09-15 2021-09-15 Patient Robb [facility] 1.2.840.114 [id number] Univers 00:00:00 00:00:00 Secure Msg Kendal Amaral HEALTH 350.1.13.10 ity of [place] 4.2.7.2.686 [place] as TOÑO?BLEA [id number] [address] OFFICE [facility] 2021-09-15 2021-09-15 Patient [facility] 1.2.840.114 [id number] Univers 00:00:00 00:00:00 Secure Msg Kendal Amaral HEALTH 350.1.13.10 ity of [place] 4.2.7.2.686 [place] as TOÑO?BLEA [id number] [address] OFFICE [facility] 2021-09-15 2021-09-15 Patient [facility] 1.2.840.114 [id number] Univers 00:00:00 00:00:00 Secure Msg Kendal Amaral HEALTH 350.1.13.10 ity of [place] 4.2.7.2.686 [place] TOÑO?BLEA [phone] [address] OFFICE [facility] 2021-09-14 2021-09-14 Patient Juan [facility] 1.2.840.114 [id number] Univers 00:00:00 00:00:00 Secure Msg Vijay HEALTH 350.1.13.10 ity of [place] 4.2.7.2.686 [place] as TOÑO?BLEA [id number] [address] OFFICE [facility] 2021-09-12 2021-09-12 Outpatient Farzana MIXON [facility] [id number] Univers 10:30:00 10:30:00 CELINA lechuga [facility] 2021-09-12 2021-09-12 Outpatient Farzana MIXON [facility] [id number] Univers 10:30:00 10:30:00 CELINA lechuga [facility] 2021-09-12 2021-09-12 Patient Meet [facility] 1.2.840.114 [id number] Univers 00:00:00 00:00:00 Secure Msg Daniel MULTISPEC 350.1.13.10 ity of [place]2.[place].2.[place] [phone] [facility] AND WEI [address] [facility] 2021-09-12 2021-09-12 Orders Doctor JORDAN 1.2.840.114 [id number] Univers 00:00:00 00:00:00 Only Unassigned, YAZMIN 350.1.13.10 ity of [facility] 4.2.7.2.686 [place] as [phone] [facility] [address] 2021-09-12 2021-09-12 Patient Juan [facility] 1.2.840.114 [id number] Univers 00:00:00 00:00:00 Secure Msg Vijay HEALTH 350.1.13.10 ity of [place] 4.2.7.2.686 [place] as TOÑO?BLEA [phone] Ct dicaliyah [place] [address] MEDICAL OFFICE BUILDING 2021-09-05 2021-09-05 Patient Juan [facility] 1.2.840.114 [id number] Univers 00:00:00 00:00:00 Secure Msg Vijay HEALTH 350.1.13.10 ity of [place] 4.2.7.2.686 [place] as TOÑO?BLEA [id number] Ct dicaliyah [place] [address] MEDICAL OFFICE BUILDING 2021-09-04 2021-09-04 Patient Juan [facility] 1.2.840.114 [id number] Univers 00:00:00 00:00:00 Secure Msg Vijay HEALTH 350.1.13.10 ity of [place] 4.2.7.2.686 Martin as TOÑO?BLEA [id number] Ct dicaliyah [place] [address] MEDICAL OFFICE BUILDING 2021-08-25 2021-08-25 Telephone [place] [facility] 1.2.840.114 [id number] Univers 00:00:00 00:00:00 Dania L HEALTH 350.1.13.10 it y of [place] 4.2.7.2.686 [place] as TOÑO?BLEA [phone] Ct dical MIKI [address] MEDICAL OFFICE BUILDING 2021-08-25 2021-08-25 Patient Juan [facility] 1.2.840.114 [id number] Univers 00:00:00 00:00:00 Secure Msg Vijay HEALTH 350.1.13.10 ity of [place] 4.2.7.2.686 [place] as TOÑO?BLEA [phone] Ct whit [place] [address] [place] [address] MEDICAL OFFICE [facility] 2021-08-24 2021-08-24 Telephone Juan [facility] 1.2.566.648 [id number] Univers 00:00:00 00:00:00 Vijay HEALTH 350.1.13.10 it y of [place] 4.2.7.2.686 [place] as TOÑO?BLEA [phone] Ct whit [address] MEDICAL OFFICE [facility] 2021-08-24 2021-08-24 Patient [facility] 1.2.840.114 [id number] Univers 00:00:00 00:00:00 Secure Msg Vijay HEALTH 350.1.13.10 ity of [place] 4.2.7.2.686 [place] as TOÑO?BLEA [id number] Ct whit [place] OFFICE [facility] 2021-08-23 2021-08-23 Patient [facility] 1.2.840.114 [id number] Univers 00:00:00 00:00:00 Secure Msg Vijay HEALTH 350.1.13.10 ity of [place] 4.2.7.2.686 [place] TOÑO?BLEA [phone] [facility] [address] OFFICE [facility] 2021-08-23 2021-08-23 Telephone [facility] 1.2.188.925 [id number] Univers 00:00:00 00:00:00 Vijay HEALTH 350.1.13.10 it y of [place] 4.2.7.2.686 [place] as TOÑO?BLEA [id number] Ct whit [address] OFFICE [facility] 2021-08-22 2021-08-22 Telephone [facility] 1.2.231.168 [id number] Univers 00:00:00 00:00:00 Vijay HEALTH 350.1.13.10 it y of [place] 4.2.7.2.686 [place] as TOÑO?BLEA [id number] [facility] IV[address] MEDICAL OFFICE [facility] 2021-08-22 2021-08-22 Patient Jaja [facility] 1.2.840.114 [id number] Univers 00:00:00 00:00:00 Secure Msg Hallie HEALTH 350.1.13.10 ity of [place] 4.2.7.2.686 [place] as TOÑO?BLEA [phone] Ct whit [place] [facility] [facility] OFFICE [facility] 2021-08-18 2021-08-18 Telephone Juan [facility] 1.2.853.699 [id number] Univers 00:00:00 00:00:00 Vijay HEALTH 350.1.13.10 it y of [place] 4.2.7.2.686 [place] as TOÑO?BLEA [phone] Ct whit [place] [address] [place] [address] 2021-08-17 2021-08-17 Outpatient Farzana MIXON [facility] [id number] Univers 09:00:00 09:00:00 CELINA lechuga [facility] 2021-08-17 2021-08-17 Outpatient Farzana MIXON [facility] [id number] Univers 09:00:00 09:00:00 CELINA lechuga [facility] 2021-08-16 2021-08-16 Patient [facility] 1.2.840.114 [id number] Univers 00:00:00 00:00:00 Secure [facility] Vijay HEALTH 350.1.13.10 ity of [place] 4.2.7.2.686 [place] as TOÑO?BLEA [phone] Ct whit [place] [address] [place] [address] 2021-08-15 2021-08-15 Office [facility] 1.2.840.114 [id number] Univers 15:30:00 16:16:42 Visit [facility] HEALTH 350.1.13.10 it y of [place] 4.2.7.2.686 [place] as TOÑO?BLEA [phone] Ct whit [place] [address] [facility] OFFICE [facility] 2021-08-15 2021-08-15 Outpatient [facility] [id number] Univers 15:30:00 16:16:42 ADÁN lechuga [facility] 2021-08-15 2021-08-15 Outpatient [facility]zana [facility] [id number] Univers 15:30:00 15:30:00 ADÁN lechuga [facility] 2021-08-15 2021-08-15 Outpatient Farzana KIM [facility] [id number] Univers 15:30:00 15:30:00 ADÁN lechuga [facility] 2021-08-15 2021-08-15 Outpatient Farzana KIM [facility] [id number] Univers 15:30:00 15:30:00 ADÁN chino [facility] 2021-08-15 2021-08-15 Emergency Aj [facility] [id number] Univers 09:27:00 12:26:00 MAURA [facility] 2021-08-15 2021-08-15 [facility] [id number] Univers 09:27:00 12:26:00 Maura [facility]DAYAMI [id number] [facility] [id number] [facility] [id number] [place] [id number] [place] 2021-08-15 2021-08-15 Emergency Aj [facility] [id number] Univers 09:27:00 12:26:00 MAURA [facility] 2021-08-14 2021-08-14 Outpatient Farzana MARTINEZ [facility] [id number] Univers 13:25:00 23:59:00 VIJAY [facility]uga [facility] 2021-08-14 2021-08-14 Outpatient Farzana MARTINEZ [facility] [id number] Univers 13:25:00 23:59:00 VIJAYLAVINIA lechuga [facility] 2021-08-14 2021-08-14 Outpatient Farzana MARTINEZ [facility] [id number] Univers 13:25:00 13:25:00 VIJAY le[facility]uga [facility] 2021-08-14 2021-08-14 Outpatient Farzana MARTINEZ [facility] [id number] Univers 12:19:07 13:24:00 VIJAY le[facility]uga [facility] 2021-08-14 2021-08-14 Outpatient Farzana MARTINEZ [facility] [id number] Univers 12:19:07 13:24:00 VIJAYLAVINIA le[facility]uga [facility] 2021-08-142021-08-14 Supervisor [employer] Ang - Db [facility] [id number] Univers 12:30:00 13:01:24 Visit Vijay Martinez [id number] ity of [place] [id number] Martin as TOÑO?BLEA [id number] Ct whit [address] [place] MEDICAL OFFICE [facility] 2021-08-14 2021-08-14 Supervisor [employer] Ang - Db [facility] 1.2.840.1 [id number] Univers 12:30:00 12:45:00 Visit Vijay Martinez [id number] ity of [place] [id number] Martin as TOÑO?BLEA [id number] Ct whit [place] [place] MEDICAL OFFICE [facility] 2021-08-14 2021-08-14 Office Juan [facility] [id number] Univers 11:30:00 12:31:12 Visit Vijay [facility] [id number] it y of [place] [id number] Martin as TOÑO?BLEA [id number] Ct whit MINOR 044 [facility] OFFICE [facility] 2021-08-14 2021-08-14 Outpatient R JUAN [facility] [id number] Univers 11:30:00 12:31:12 VIJAY lechuga of [facility] 2021-08-14 2021-08-14 Patient Víctorkathy [facility] 1.2.840.114 [id number] Univers 00:00:00 00:00:00 Secure Msg Vijay ezTaxi 350.1.13.10 ity of [place] 4.2.7.2.686 Martin as TOÑO?BLEA [id number] Ct whit [address] MEDICAL OFFICE [facility] 2021-08-09 2021-08-09 Outpatient R JUDY [facility] [id number] Univers 14:45:00 14:45:00 ADÁN ity of [facility] 2021-08-09 2021-08-09 Telephone Juan [facility] 1.2.592.463 [id number] Univers 00:00:00 00:00:00 Vijay HEALTH 350.1.13.10 it y of [facility] 4.2.7.2.686 [place] as TOÑO?BLEA [phone] Ct whit [place] [address] [place] MEDICAL OFFICE [facility] 2021-08-08 2021-08-08 [facility] [id number] Univers 11:30:00 23:59:00 VIJAY lechuga [facility] 2021-08-08 2021-08-08 [facility] 1.2.840.114 [id number] Univers 11:30:00 23:59:00 Encounter Vijay [facility] 350.1.13.10 ity of [place] 4.2.7.2.686 [place] as TOÑO?BLEA [phone] Ct whit [place] [facility] [facility] OFFICE [facility] 2021-08-08 2021-08-08 [facility] [id number] Univers 11:15:00 11:15:00 VIJAY lechuga [facility] 2021-08-08 2021-08-08 [facility] [id number] Univers 11:00:00 11:00:00 VIJAY lechuga [facility] 2021-08-08 2021-08-08 Patient Doctor JORDAN 1.2.840.114 [id number] Univers 00:00:00 00:00:00 Secure Msg Unassigned, YAZMIN 350.1.13.10 ity of [place] [facility] 4.2.7.2.686 [place] as [phone] [address] 2021-08-07 2021-08-07 Office [facility] 1.2.840.114 [id number] Univers 09:30:00 10:23:21 Visit Vijay [facility] 350.1.13.10 it y of [place] 4.2.7.2.686 [place] as TOÑO?BLEA [phone] Ct whit [place] [facility] OFFICE [facility] 2021-08-07 2021-08-07 [facility] [id number] Univers 09:30:00 10:23:21 VIJAY lechuga [facility] 2021-08-07 2021-08-07 Out[facility] [id number] Univers 09:30:00 09:30:00 VIJAY ity of [facility] 2021-08-07 2021-08-07 Patient Juan [facility] 1.2.840.114 [id number] Univers 00:00:00 00:00:00 Secure Msg Vijay HEALTH 350.1.13.10 ity of [place] 4.2.7.2.686 [place] as TOÑO?BLEA [id number] [address] MEDICAL OFFICE [facility] 2021-08-07 2021-08-07 Patient Juan [facility] 1.2.840.114 [id number] Univers 00:00:00 00:00:00 Secure Msg Vijay HEALTH 350.1.13.10 ity of [place] 4.2.7.2.686 [place] as TOÑO?BLEA [id number] [address] OFFICE [facility] 2021-08-07 2021-08-07 Patient Apurva [facility] 1.2.840.114 [id number] Univers 00:00:00 00:00:00 Secure Msg Celina SAM 350.1.13.10 ity of [place].2.[place] [id number] [address] 2021-08-04 2021-08-04 Outpatient R SHADIA [facility] [id number] Univers 10:00:00 10:00:00 PETRA ity of [facility] 2021-08-04 2021-08-04 [facility] 1.2.840.114 [id number] Univers 00:00:00 00:00:00 Secure Msg Vijay HEALTH 350.1.13.10 ity of [place] 4.2.7.2.686 [place] as TOÑO?BLEA [id number] [address] OFFICE [facility] 2021-08-03 2021-08-03 Office SOURAV Diaz 1.2.840.114 [id number] Univers 11:00:00 12:48:43 Visit Jayy Dowling 350.1.13.10 it y of [facility] 4.2.7.2.686 [place] as BANK [id number] [address] 2021-08-03 2021-08-03 Outpatient R EMILY [facility] [id number] Univers 11:00:00 12:48:43 JAYY lechuga [facility] 2021-08-03 2021-08-03 Outpatient [facility] [id number] Univers 11:00:00 11:00:00 JAYY chino [facility] 2021-08-03 2021-08-03 Patient [facility] 1.2.840.114 [id number] Univers 00:00:00 00:00:00 Secure Msg Celina Cannon FLACO 350.1.13.10 ity of [facility] 4.2.7.2.686 [place] [id number] [address] 2021-08-02 2021-08-02 Telephone [facility] 1.2.480.948 [id number] Univers 00:00:00 00:00:00 Vijay HEALTH 350.1.13.10 it y of [place] 4.2.7.2.686 [place] as TOÑO?BLEA [phone] Ct alessandra[address] MEDICAL OFFICE [facility] 2021-07-21 2021-07-21 Outpatient R DARRION WYATT [facility] [id number] Univers 08:00:00 08:52:53 DARRION WYATT [facility] 2021-07-17 2021-07-17 Outpatient R JUAN [facility] [id number] Univers 11:30:00 11:30:00 VIJAY maradiagachino [facility] 2021-06-19 2021-06-19 Telephone [facility] 1.2.817.616 [id number] Univers 00:00:00 00:00:00 Vijay HEALTH 350.1.13.10 it y of [facility] 4.2.7.2.686 [place] as TOÑO?BLEA [phone] Ct alessandra[address] MEDICAL OFFICE [facility] 2021-06-09 2021-06-09 Telephone [facility] 1.2.102.328 [id number] Univers 00:00:00 00:00:00 Reji LAWSON 350.1.13.10 ity of [place].2.7.2.686 [place] [phone] Me dical NAL [address] [facility] 2021-06-06 2021-06-06 Outpatient R DEYVI [facility] [id number] Univers 11:15:00 11:15:00 TETO lechuga [facility] 2021-06-06 2021-06-06 Outpatient R MANUELCHRISTOPHERZAMZAM [facility] [id number] Univers 11:15:00 11:15:00 TETO lechuga [facility] 2021-06-02 2021-06-02 Outpatient R CRISTINA [facility] [id number] Univers 15:45:00 15:45:00 WONDIFUL ity o f [facility] 2021-05-31 2021-05-31 Outpatient [facility] [id number] Univers 10:00:00 10:46:31 VIJAY maradiagachino [facility] 2021-05-31 2021-05-31 Office [facility] 1.2.840.114 [id number] Univers 10:00:00 10:46:31 Visit Vijay ezTaxi 350.1.13.10 it y of [place] 4.2.7.2.686 [place] as TOÑO?BLEA [phone] Ct dical IVÁNEY [address] [place] MEDICAL OFFICE [facility] 2021-05-31 2021-05-31 Outpatient R JUAN [facility] [id number] Univers 10:00:00 10:46:31 VIJAY maradiagachino [facility] 2021-05-31 2021-05-31 Orders Doctor ORTEGA 1.2.840.114 [id number] Univers 00:00:00 00:00:00 Only Unassigned, YAZMIN 350.1.13.10 ity of [place] [facility] 4.2.7.2.686 [place] as [id number] [address] 2021-05-26 2021-05-26 Telephone Yaneli [facility] 1.2.609.329 [id number] Univers 00:00:00 00:00:00 Skylar A HEALTH 350.1.13.10 i ty of [place] 4.2.7.2.686 [place] as TOÑO?BLEA [id number] [facility] 0[facility] OFFICE [facility] 2021-05-26 2021-05-26 Patient Prasanna Vargas [facility] 1.2.711.570 [id number] Univers 00:00:00 00:00:00 Secure Msg Jm LAW[place] 350.1.13.10 ity of [place].2.7.2.[place] [id number] Ct dicak NAL 134 [facility] 2021-05-25 2021-05-25 Telemedici [facility] 1.2.840.114 [id number] Univers 14:00:00 14:30:00 ne Visit [facility] 350.1.13.10 ity [facility] 4.2.7.2.686 [place] as TOÑO?BLEA [phone] [facility] 044 [facility] 2021-05-25 2021-05-25 [facility] [id number] Univers 14:00:00 14:00:00 [facility] 2021-05-25 2021-05-25 Outpatient [facility] [id number] Univers 14:00:00 14:00:00 [facility] 2021-05-24 2021-05-24 Telephone [facility] 1.2.695.989 [id number] Univers 00:00:00 00:00:00 Sendzohra LAW[place] 350.1.13.10 ity [facility] [place].2.[place] [phone] [facility] 059 [facility] 2021-05-23 2021-05-23 Outpatient R [facility] [id number] Univers 10:00:00 10:00:00 [facility] 2021-05-23 2021-05-23 Outpatient R [facility] [id number] Univers 10:00:00 10:00:00 [facility] 2021-05-16 2021-05-16 Outpatient R DEYVI [facility] [id number] Univers 09:00:00 09:00:00 TETO [facility] 2021-05-12 2021-05-12 Orders Doctor JORDAN 1.2.840.114 [id number] Univers 00:00:00 00:00:00 Only Unassigned, YAZMIN 350.1.13.10 ity of [place] [facility] 4.2.7.2.686 [place] as [phone] [address] 2021-05-10 2021-05-10 Outpatient R [facility] [id number] Univers 13:00:00 13:00:00 WONDIFUL ity o f [facility] 2021-05-10 2021-05-10 Outpatient R CRISTINA [facility] [id number] Univers 13:00:00 13:00:00 WONDIFUL ity o f [facility] 2021-05-09 2021-05-09 Telephone Vargas Prasanna [facility] 1.2.840.114 [id number] Univers 00:00:00 00:00:00 Jm [place] 350.1.13.10 i ty [facility] [place].2.[place] [phone] Ct dical NAL 134 [facility] 2021-05-09 2021-05-09 [facility] 1.2.840.114 [id number] Univers 00:00:00 00:00:00 Secure Msg Rad [place] 350.1.13.10 ity [facility] [place]2.7.2.[place] [phone] Me dical NAL 059 [facility] 2021-05-08 2021-05-08 Outpatient R YASMEEN [facility] [id number] Univers 16:00:00 16:00:00 JE ankush [facility] 2021-05-08 2021-05-08 Outpatient R [facility] [id number] Univers 16:00:00 16:00:00 JE ankush [facility] 2021-05-08 2021-05-08 Patient [facility] 1.2.840.114 [id number] Univers 00:00:00 00:00:00 Secure Msg Rad [place] 350.1.13.10 ity of [place].2.[place] [id number] [facility] 059 [facility] 2021-05-08 2021-05-08 Patient [facility] 1.2.840.114 [id number] Univers 00:00:00 00:00:00 Secure Msg Sendil [facility] [place] 350.1.13.10 ity of [facility] 4.2.7.2.686 [place] [id number] [facility] 059 [facility] 2021-05-03 2021-05-03 Outpatient R [facility] [id number] Univers 11:15:36 23:59:00 REJI maradiagay o f [facility] 2021-05-03 2021-05-03 [facility] 1.2.840.114 [id number] Univers 11:15:36 23:59:00 Encounter Reji [place] 350.1.13.10 ity of [place] 4.2.7.2.686 [place] [phone] [facility] 846 [facility] 2021-05-03 2021-05-03 Telephone [facility] 1.2.840.114 [id number] Univers 00:00:00 00:00:00 Wondiful A HEALTH 350.1.13.10 ity of [facility] 4.2.7.2.686 [place] TOÑO?BLEA [phone] [facility] 044 [facility] 2021-05-02 2021-05-02 Telephone [facility] 1.2.777.012 [id number] Univers 00:00:00 00:00:00 Sendil [facility] [place] 350.1.13.10 ity of [place] [facility] 4.2.7.2.686 [place] [id number] [facility] 059 [facility] 2021-05-02 2021-05-02 Patient [facility] 1.2.840.114 [id number] Univers 00:00:00 00:00:00 Secure Msg Wondiful A HEALTH 350.1.13.10 ity of [place] 4.2.7.2.686 [place] as TOÑO?BLEA [phone] Ct dicaliyah [place] [address] [place] MEDICAL OFFICE [facility] 2021-05-02 2021-05-02 Telephone Cristina [facility] 1.2.840.114 [id number] Univers 00:00:00 00:00:00 Wondiful A HEALTH 350.1.13.10 ity of [place] 4.2.7.2.686 [place] as TOÑO?BLEA [phone] Ct dicaliyah [facility] [address] [place] MEDICAL OFFICE [facility] 2021-05-02 2021-05-02 Patient Ponce, [facility] 1.2.840.114 [id number] Univers 00:00:00 00:00:00 Secure Msg Rad [place] 350.1.13.10 ity of [place].2.7.2.686 [place] [facility] [phone] Ct dical NAL 059 [facility] 2021-04-27 2021-04-27 Emergency X [facility] ERT [id number] Univers 14:24:00 15:49:00 MAGGIE lechuga [facility] 2021-04-27 2021-04-27 Emergency [facility] 1.2.840.114 [id number] Univers 14:24:00 15:49:00 Maggie [place] 350.1.13.10 ity of [place] 4.2.7.2.686 [place] [phone] [facility] [address] [place] 2021-04-27 2021-04-27 Laboratory Only, Ang Db Test [facility] 1.2.8 40.114 [id number] Univers 11:15:00 11:30:00 Only Unknown, Attending HEALTH 350.1.13.10 ity of [place] 4.2.7.2.686 [place] TOÑO?BLEA [id number] Ct dicaliyah [place] 370 [facility] OFFICE [facility] 2021-04-27 2021-04-27 Outpatient R SIL [facility] [id number] Univers 11:15:00 11:15:00 THONY lechuga [facility] 2021-04-27 2021-04-27 Orders Doctor ORTEGA 1.2.840.114 [id number] Univers 00:00:00 00:00:00 Only Unassigned, YAZMIN 350.1.13.10 ity of [place] [facility] 4.2.7.2.686 [place] as [phone] [address] 2021-04-20 2021-04-20 Outpatient R JUSTINE [facility] [id number] Univers 15:00:00 15:00:00 SCOTT ity of [facility] 2021-04-13 2021-04-13 Patient [facility] 1.2.840.114 [id number] Univers 00:00:00 00:00:00 Secure Msg Wondiful A HEALTH 350.1.13.10 ity of [place] 4.2.7.2.686 [place] as TOÑO?BLEA [phone] [address] MEDICAL OFFICE [facility] 2021-04-12 2021-04-12 Telephone [facility] 1.2.840.114 [id number] Univers 00:00:00 00:00:00 Wondiful A HEALTH 350.1.13.10 ity of [place] 4.2.7.2.686 [place] as TOÑO?BLEA [id number] [address] OFFICE [facility] 2021-03-27 2021-03-27 Telephone Prasanna Vargas [facility] 1.2.840.114 [id number] Univers 00:00:00 00:00:00 Cam [facility] 350.1.13.10 i ty of [place] 4.2.7.2.[place] [phone] [address] 2021-03-23 2021-03-23 Outpatient R KAVYA [facility] [id number] Univers 13:30:00 13:30:00 CHILVANA ity o f [facility] 2021-03-23 2021-03-23 Outpatient R KAVYA [facility] [id number] Univers 13:30:00 13:30:00 CHILVANA ity o f [facility] 2021-03-22 2021-03-22 Outpatient R ADITYA MEEKS [facility] [id number] Univers 09:20:00 09:20:00 ADITYA MEEKS [facility] 2021-03-22 2021-03-22 Outpatient R NEHEMIAH MEEKSVAEz [facility] [id number] Univers 09:20:00 09:20:00 ADITYA MEEKS [facility] 2021-03-20 2021-03-20 Outpatient R CRISTINA [facility] [id number] Univers 00:00:00 00:00:00 WONDIFUL ity o f [facility] 2021-03-18 2021-03-18 Case [facility] 1.2.840.114 [id number] Univers 00:00:00 00:00:00 Management Wondiful A HEALTH 350.1.13.10 ity of [place] 4.2.7.2.686 [place] TOÑO?BLEA [id number] [address] MEDICAL OFFICE [facility] 2021-03-16 2021-03-16 Supervisor [employer], [facility] 1.2.840.1 14 [id number] Univers 11:16:07 11:31:07 Visit Claudette Evans A HEALTH 350.1.13.1 0 ity of [place] 4.2.7.2.686 [place] TOÑO?BLEA [phone] [facility] [address] [place] MEDICAL OFFICE [facility] 2021-03-16 2021-03-16 Outpatient R CRISTINA [facility] [id number] Univers 11:30:00 11:30:00 WONDIFUL ity o f [facility] 2021-03-16 2021-03-16 Outpatient R CRISTINA [facility] [id number] Univers 11:00:00 11:14:45 WONDIFUL ity o f [facility] 2021-03-16 2021-03-16 Office [facility] 1.2.840.114 [id number] Univers 10:00:58 11:14:45 Visit Wondiful A HEALTH 350.1.13.10 ity of [place] 4.2.7.2.686 [place] as TOÑO?BLEA [id number] [address] MEDICAL OFFICE [facility] 2021-03-16 2021-03-16 Patient [facility] 1.2.840.114 [id number] Univers 00:00:00 00:00:00 Secure Msg Wondiful A HEALTH 350.1.13.10 ity of [facility] 4.2.7.2.686 [place] as TOÑO?BLEA [id number] [address] MEDICAL OFFICE [facility] 2021-03-02 2021-03-02 Outpatient R [facility] [id number] Univers 16:15:00 16:15:00 WONDIFUL ity o f [facility] 2021-02-28 2021-02-28 Outpatient R [facility] [id number] Univers 18:30:00 18:30:00 ILEANA itchino [facility] 2021-02-28 2021-02-28 Telephone [facility] 1.2.840.114 [id number] Univers 00:00:00 00:00:00 Wondiful A Health 350.1.13.10 ity of [place] 4.2.7.2.686 Martin as Toño?Blea [id number] [address] Office [facility] 2021-02-27 2021-02-27 Outpatient R [facility] [id number] Univers 09:00:00 09:00:00 [facility] 2021-02-23 2021-02-23 Telephone [facility] 1..840.114 [id number] Univers 00:00:00 00:00:00 Wondiful A Health 350.1.13.10 ity of [place] 4.2.7.2.686 Martin as Toño?Blea [phone] [address] Medical Office [facility] 2021-02-10 2021-02-10 Emergency Kaycee Méndez [facility] 1..840.114 [id number] Univers 18:12:00 23:39:00 Sharlene [place] 350.1.13.10 i ty of [place] 4.2.7.2.686 [place] [phone] [facility] [address] [place] [address] 2021-02-09 2021-02-09 Hospital [facility] 1.2.931.053 [id number] Univers 13:40:00 23:59:00 Encounter Wondiful A Health 350.1.13.10 ity of [place] 4.2.7.2.686 Martin as Toño?Blea [phone] Ct whit [place] 809 [facility] Office [facility] 2021-02-09 2021-02-09 Supervisor [employer], Ang - Db [facility] 1.2.840.1 14 [id number] Univers 13:49:05 14:04:05 Visit Claudette Evans [facility] Health 350.1.13.1 0 ity of [place] 4.2.7.2.686 Martin as Toño?Blea [phone] Ct whit [place] 353 [facility] Office [facility] 2021-02-09 2021-02-09 Office [facility] 1.2.840.114 [id number] Univers 12:23:13 13:47:12 Visit Wondiful A Health 350.1.13.10 ity of [place] 4.2.7.2.686 Martin as Toño?Blea [id number] Ct whit [place] 044 [facility] Office [facility] 2021-02-09 2021-02-09 Outpatient R CRISTINA [facility] [id number] Univers 13:00:00 13:00:00 WONDIFUL ity o f [facility] 2021-02-08 2021-02-08 Outpatient R ADITYA MEEKS [facility] [id number] Univers 10:20:00 10:20:00 ADITYA MEEKS [facility] 2021-02-02 2021-02-02 Outpatient R YANELI [facility] [id number] Univers 10:30:00 10:30:00 SKYLAR lechuga [facility] 2021-02-02 2021-02-02 Telephone [facility] 1.2.840.114 [id number] Univers 00:00:00 00:00:00 Wondiful A Health 350.1.13.10 ity of [place] 4.2.7.2.686 Martin as Toño?Blea [phone] Ct whit [place] 044 [facility] Office [facility] 2021-02-01 2021-02-01 Outpatient [facility] [id number] Univers 08:30:00 08:30:00 SKYLAR ity of [facility] 2021-01-31 2021-01-31 Urgent [facility] 1.2.840.114 [id number] Univers 18:44:04 19:41:26 Care [facility] 350.1.13.10 i ty of [place] 4.2.7.2.686 [place] as Toño?Blea [phone] Ct dicaliyah [place] [address] [place] Medical Office [facility] 2021-01-31 2021-01-31 Outpatient R [facility] [id number] Univers 19:00:00 19:00:00 FLACO hireny o f [facility] 2021-01-31 2021-01-31 Telephone [facility] 1.2.840.114 [id number] Univers 00:00:00 00:00:00 Wondiful A Health 350.1.13.10 ity of [place] 4.2.7.2.686 Martin as Toño?Blea [id number] Ct whit [place] 044 [facility] Office [facility] 2021-01-30 2021-01-30 Telephone [facility] 1.2.476.274 [id number] Univers 00:00:00 00:00:00 Sendil Cuate [place] 350.1.13.10 ity of [place] 4.2.7.2.686 [place] Profess[place] [phone] Ct dicaliyah [place] 059 [facility] 2021-01-26 2021-01-26 Outpatient [facility] [id number] Univers 14:00:00 14:00:00 SENDIL ity [facility] 2021-01-25 2021-01-25 Outpatient R [facility] [id number] Univers 15:00:00 15:00:00 ity [facility] 2021-01-20 2021-01-20 Telemedici [facility] 1.2.840.114 [id number] Univers 16:51:22 17:12:41 ne Visit Skylar A Health 350.1.13.10 ity of [place] 4.2.7.2.686 Martin as Toño?Blea [id number] Ct whit [facility] [address] [place] [facility] 2021-01-20 2021-01-20 Outpatient [facility] [id number] Univers 16:30:00 16:30:00 SKYLAR ity [facility] 2021-01-19 2021-01-19 Outpatient [facility] [id number] Univers 10:15:00 10:15:00 [facility] 2021-01-14 2021-01-14 Donlado RobledoJORDAN 1.2.840.114 [id number] Univers 00:00:00 00:00:00 Management Kassandra Robert YAZMIN 350.1.13.10 ity [facility] 4.2.7.2.686 [place] as [phone] [facility] [address] [place] 2021-01-12 2021-01-12 Emergency [facility] [id number] Univers 16:10:00 19:45:00 Karin Lawson [id number] i ty [facility] [id number] [phone] [facility] [address] 2021-01-12 2021-01-12 Outpatient [facility] [id number] Univers 15:20:00 15:20:00 [facility] 2021-01-12 2021-01-12 Urgent Thony Johnson [facility] [id number] Univers 14:46:57 15:06:57 Noelle [facility] [id number] ity of [place] [id number] Matrin as Toño?Blea [phone] Ct whit moe [address] [place] [facility] 2020-12-26 2020-12-26 [facility] [id number] Univers 15:30:00 16:13:32 [facility] 2020-12-26 2020-12-26 [facility] [id number] Univers 15:30:00 16:13:32 Visit Sendil Cuate LULU [id number] ity [id number] [phone] Ct dical NAL 9 [facility] 2020-12-26 2020-12-26 [facility] [id number] [id number] Univers 15:00:32 16:13:32 Visit Sendil Cuate Lulu [id number] ity [facility] [id number] [id number] [address] 2020-12-26 2020-12-26 [facility] [id number] Univers 15:30:00 15:30:00 SENDIL [facility] 2020-11-22 2020-11-22 [facility] [id number] Univers 11:00:00 11:00:00 CELINA lechuga [facility] 2020-11-10 2020-11-10 Urgent Alissa Collins [facility] 1.2.840.114 [id number] 18:42:46 19:53:43 [facility] 350.1.13.10 [place] 4.2.7.2.686 [facility] [id number] nal [address] 2020-11-10 2020-11-10 Outpatient R [facility] [id number] Univers 19:00[facility]00 [facility]-10-[facility] 2020-10-31 Emergency Kaycee Méndez [facility] [id number] 18:52:00 22:15:00 Sharlene Lawson 350.1.13.10 [place] 4.2.7.2.686 [place] [id number] 2020-10-31 2020-10-31 Outpatient R NATASHA [facility] [id number] Univers 19:00:00 19:00:00 CARI lechuga o f [facility] 2020-10-31 2020-10-31 Orders Doctor ORTEGA [id number] 00:00:00 00:00:00 Only Unassigned, YAZMIN 350.1.13.10 [facility] 4.2.7.2.686 [id number] 2020-10-20 2020-10-20 Emergency Kaycee Méndez [facility] 1.2.840.114 [id number] 14:02:00 17:13:00 Sharlene Lawson 350.1.13.10 [place] 4.2.7.2.686 [place] [id number] 2020-10-14 2020-10-14 Hospital Prasanna Vargas [facility] 1.2.840.114 [id number] 10:00:00 23:59:00 Encounter Jm Lawson 350.1.13.10 [place] 4.2.7.2.686 [place] [id number] 2020-10-14 2020-10-14 Outpatient Farzana MIXON [facility] [id number] Univers 13:30:00 13:30:00 CELINA [facility] 2020-10-09 2020-10-09 Emergency [facility] [id number] 12:00:00 15:57:00 Anna Lawson 350.1.13.10 [place] 4.2.7.2.686 [place] [id number] 2020-10-06 2020-10-06 Office Prasanna Vargas [facility] [id number] 08:53:00 09:46:44 Visit Jm Lawson 350.1.13.10 [place] 4.2.7.2.686 [facility] [id number] [address] 2020-10-06 2020-10-06 Outpatient Farzana PRASANNA VARGAS [facility] [id number] Univers 09:30:00 09:30:00 ankush [facility] 2020-10-04 2020-10-04 Outpatient Farzana MIXON [facility] [id number] Univers 14:00:00 14:00:00 CELINA lechuga [facility] 2020-09-30 2020-09-30 Outpatient Farzana MIXON [facility] [id number] Univers 10:30:00 10:30:00 [facility] 2020-09-29 2020-09-29 Outpatient R JASPAL [facility] [id number] Univers 13:45:00 13:45:00 PREET [facility]ch[facility] 2020-09-06 2020-09-06 Outpatient R PRASANNA VARGAS [facility] [id number] Univers 15:30:00 15:30:00 ity [facility] 2020-09-02 2020-09-02 Outpatient DARRION QUIROZ [facility] [id number] Univers 15:40:00 15:40:00 DARRION WYATT [facility] 2020-08-31 2020-08-31 Outpatient Farzana SERRA [facility] [id number] Univers 10:30:00 10:30:00 SENDIL it[facility] 2020-08-18 2020-08-18 Outpatient Fazrana PRASANNA VARGAS [facility] [id number] Univers 09:30:00 09:30:00 ity [facility] 2020-08-11 2020-08-11 Outpatient Farzana PRASANNA VARGAS [facility] [id number] Univers 13:30:00 13:30:00 [facility] 2020-08-04 2020-08-04 Outpatient R JUSTINE [facility] [id number] Univers 14:00:00 14:00:00 [facility] 2020-07-28 2020-07-28 Outpatient R PONCE [facility] [id number] Univers 10:30:00 10:30:00 [facility] 2020-06-30 2020-06-30 Outpatient R CRISTINA [facility] [id number] Univers 16:15:00 16:15:00 WONDIFUL ity o f [facility] 2020-06-17 2020-06-17 Outpatient DARRION QUIROZ [facility] [id number] Univers 15:00:00 15:00:00 DARRION WYATT [facility] 2020-06-16 2020-06-16 Outpatient Farzana SERRA [facility] [id number] Univers 15:30:00 15:30:00 SENDIL it[facility] 2020-06-09 2020-06-09 Outpatient R NI DISLA [facility] [id number] Univers 12:30:00 12:30:00 ity [facility] 2020-06-08 2020-06-08 Outpatient R NI DISLA [facility] [id number] Univers 08:00:00 08:00:00 ity [facility] 2020-06-02 2020-06-02 Outpatient R PONCE [facility] [id number] Univers 09:00:00 09:00:00 [facility] 2020-05-28 2020-05-28 Outpatient R NATASHA [facility] [id number] Univers 10:00:00 10:00:00 CARI ity o f [facility] 2020-05-24 2020-05-24 Outpatient R NI DISLA [facility] [id number] Univers 10:00:00 10:00:00 [facility] 2020-05-19 2020-05-19 Outpatient R JACKLAURENOSITO [facility] [id number] Univers 16:30:00 16:30:00 [facility] 2020-05-17 2020-05-17 Outpatient R DARRION WYATT [facility] [id number] Univers 13:00:00 13:00:00 DARRION WYATT [facility] 2020-05-16 2020-05-16 Outpatient R CRISTINA [facility] [id number] Univers 16:00:00 16:00:00 WONDIFUL ity o f [facility] 2020-05-08 2020-05-08 Emergency X VIRGIE [facility] ERT [id number] Univers 10:24:00 13:03:00 OLAMIDE [facility] 2020-05-03 2020-05-03 Outpatient R CRISTINA [facility] [id number] Univers 15:00:00 15:00:00 WONDIFUL ity o f [facility] 2020-04-30 2020-05-01 Outpatient X KAVYA [facility] JOSÉ MANUEL [id number] Univers 11:14:00 15:50:00 RODRIGUEZ [facility] 2020-04-30 2020-04-30 Outpatient R JASPAL [facility] [id number] Univers 10:20:00 10:20:00 [facility] 2020-04-30 2020-04-30 Outpatient R JASPAL [facility] [id number] Univers 10:15:00 10:15:00 [facility]ES [facility] 2020-04-28 2020-04-28 Outpatient R JACK OSITO [facility] [id number] Univers 14:00:00 14:00:00 [facility] 2020-04-25 2020-04-25 Outpatient R CRISTINA [facility] [id number] Univers 16:15:00 16:15:00 WONDIFUL ity o f [facility] 2020-04-18 2020-04-18 Outpatient R JACK OSITO [facility] [id number] Univers 10:00:00 10:00:00 [facility] 2020-04-15 2020-04-15 Outpatient R PONCE [facility] [id number] Univers 10:30:00 10:30:00 [facility] 2020-04-12 2020-04-13 Outpatient X MARICRUZ DELUNA [facility] [id number] Univers 13:38:00 16:25:00 [facility] 2020-03-17 2020-03-17 Outpatient R DEYVI [facility] [id number] Univers 16:15:00 16:15:00 TETO [facility] 2020-03-04 2020-03-04 Mando Hitchcock [facility] [id number] [id number] 00:00:00 00:00:00 MULTISPEC 350.1.13.10 [place] 4.2.7.2.686 CENTER [id number] [facility] 2020-02-25 2020-02-25 Outpatient R LAUREN HITCHCOCKSIR [facility] [id number] Univers 16:00:00 16:00:00 [facility] 2020 2020 Outpatient R DEYVI [facility] [id number] Univers 14:00:00 14:00:00 [facility] 2020-02-08 2020-02-08 Outpatient R PRASANNA VARGAS [facility] [id number] Univers 10:30:00 10:30:00 [facility] 2020-02-04 2020-02-04 Outpatient R OSITO HITCHCOCK [facility] [id number] Univers 13:30:00 13:30:00 [facility] 2020-01-23 2020-01-23 Outpatient R [facility] [id number] Univers 10:15:00 10:15:00 [facility] 2020-01-21 2020-01-21 Outpatient R JACKOSITO [facility] [id number] Univers 13:00:00 13:00:00 [facility] 2020-01-14 2020-01-14 Outpatient R JACKJACOBR [facility] [id number] Univers 16:00:00 16:00:00 [facility] 2020-01-05 2020-01-05 Outpatient R PRASANNA VARGAS [facility] [id number] Univers 13:45:00 13:45:00 [facility] 2019-12-03 2019-12-03 Outpatient R AKINSIPE, [facility] [id number] Univers 10:30:00 10:30:00 CRICKET ity o f [facility] 2019-11-27 2019-11-27 Outpatient R VANAPHAN, [facility] [id number] Univers 11:00:00 11:00:00 [facility] 2019-11-25 2019-11-25 Outpatient R VANAPHAN, [facility] [id number] Univers 08:00:00 08:00:00 [facility] 2019-11-18 2019-11-18 Outpatient R VANAPHAN, [facility] [id number] Univers 10:00:00 10:00:00 [facility] 2019-09-02 2019-09-02 Outpatient R AKINSIPE, [facility] [id number] Univers 11:00:00 11:00:00 CRICKET ity o f [facility] 2019-08-14 2019-08-14 Outpatient R VANAPHAN, [facility] [id number] Univers 10:15:00 10:15:00 TETO [facility] 2019-08-13 2019-08-13 Outpatient R AKINSIPE, [facility] [id number] Univers 11:00:00 11:00:00 CRICKET lechuga o f [facility] 2019-08-12 2019-08-12 Outpatient R [facility] [id number] Univers 09:00:00 09:00:00 [facility] 2019-07-20 2019-07-20 Outpatient P PRASANNA VARGAS [facility] CHRIS [id number] Univers 16:06:00 16:06:00 [facility] 2019-07-20 2019-07-20 Outpatient R AKINSIPE, [facility] [id number] Univers 08:15:00 08:15:00 CRICKET lechuga o f [facility] 2019-07-13 2019-07-13 Outpatient R AKINSIPE, [facility] [id number] Univers 08:00:00 08:00:00 CRICKET lechuga o f [facility] 2019-07-12 2019-07-12 Outpatient P PRASANNA VARGAS [facility] CH[facility] [id number] Univers 13:39:00 13:39:00 [facility] 2019-07-06 2019-07-06 Outpatient R AKINSIPE, [facility] [id number] Univers 13:00:00 13:00:00 CRICKET davis [facility] 2019-06-13 2019-06-13 Emergency X YARIMA, [facility] ERT [id number] Univers 10:40:46 12:35:00 SARAHI [facility] 2019-05-13 2019-05-14 Outpatient P PRASANNA VARGAS [facility] CHRIS [id number] Univers 23:07:00 09:15:00 [facility] Results Test Description Test Time Test Comments Results Result Comments Source TEST, SERUM 2022-08-01 00:23:34 Test Item Value Reference Range Interpretation Comme nts PREG SERUM (test code = 7340340206) Negative WESLEY (test code = WESLEY) Less than 10 IU/L. ?If low titer or ectopic is suspected, resubmit specimen in 48-72 hours. [facility] METABOLIC PANEL ([id number])2022-07-31 23:58:12 Test Item Value Reference Range Interpretation Comments NA (test code = 140 mmol/L 135-145 0924842347) K (test code = 3.6 mmol/L 3.5-5.0 2737047601) CL (test code = 106 mmol/L 98-108 6630775155) CO2 TOTAL (test code = 21 mmol/L 23-31 L 3147870665) AGAP (test code = 13 2-16 0513049797) BUN (test code = 8 mg/dL 7-23 7642539326) GLUCOSE (test code = 90 mg/dL 70-110 5433940201) CREATININE (test code = 0.90 mg/dL 0.50-1.04 5942442245) TOTAL BILI (test code = 0.5 mg/dL 0.1-1.5 7702931232) CALCIUM (test code = 9.0 mg/dL 8.6-10.6 2717151222) T PROTEIN (test code = 7.8 g/dL 6.3-8.2 0769439933) ALBUMIN (test code = 4.6 g/dL 3.5-5.0 0834237291) ALK PHOS (test code = 63 U/L 34-122 4490658718) ALTv (test code = 23 U/L 5-35 1742-6) AST(SGOT) (test code = 27 U/L 13-40 0736259187) eGFR (test code = 75.1 mL/min/1.73m2 9598722982) WESLEY (test code = WESLEY) Association of [...] tests). Lab Interpretation Abnormal (test code = 68996-1) [facility] Test Item Value Reference Range Interpretation Comments LIPASE (test code = 8901971196) 55 U/L 0-220 Lab Interpretation (test code = Normal 35872-1) [facility] WITH [id number] 23:47:31 Test Item Value Reference Range Interpretation Comments WBC (test code = 5.64 See_Comment [Automated 2693-2) message] The sy stem which generated this result transmitted reference range : 4.30 - 11.10 10*3/?L. The reference range was not used to interpret this result as normal/abnormal . RBC (test code = 4.51 See_Comment [Automated 029-8) message] The sy stem which generated this result transmitted reference range : 3.93 - 5.25 10*6/?L. The reference range was not used to interpret this result as normal/abnormal . HGB (test code = 13.0 g/dL 11.6-15.0 718-7) HCT (test code = 39.9 % 35.7-45.2 4544-3) MCV (test code = 88.5 fL 80.6-95.5 787-2) MCH (test code = 28.8 pg 25.9-32.8 785-6) MCHC (test code = 32.6 g/dL 31.6-35.1 786-4) RDW-SD (test code = 42.5 fL 39.0-49.9 54822-0) RDW-CV (test code = 13.0 % 12.0-15.5 788-0) PLT (test code = 339 See_Comment [Automated 777-3) message] The sy stem which generated this result transmitted reference range : 166 - 358 10*3/ ?L. The reference r dvaid was not used to interpret this result as normal/abnormal . MPV (test code = 9.4 fL 9.5-12.9 L 96000-5) NRBC/100 WBC (test 0.0 See_Comment [Automat ed code = 4822249151) message] The system which generated this result transmitted reference range : 0.0 - 10.0 /100 WBCs. The refer ence range was not u sed to interpret th is result as normal/abnormal . NRBC x10^3 (test code See_Comment [Auto mated = 1386178226) message] The s ystem which generated this result transmitted reference range : 10*3/?L. The reference range was not used to interpret this result as normal/abnormal . GRAN MAT (NEUT) % 51.2 % (test code = 770-8) IMM GRAN % (test code 0.20 % = 9111682414) LYMPH % (test code = 36.5 % 736-9) MONO % (test code = 5.7 % 5905-5) EOS % (test code = 5.9 % 713-8) BASO % (test code = 0.5 % 706-2) GRAN MAT x10^3(ANC) 2.89 10*3/uL 1.88-7.09 (test code = 1892867152) IMM GRAN x10^3 (test 0.00-0.06 code = 1102322756) LYMPH x10^3 (test code 2.06 10*3/uL 1.32-3.29 = 731-0) MONO x10^3 (test code 0.32 10*3/uL 0.33-0.92 L = 742-7) EOS x10^3 (test code = 0.33 10*3/uL 0.03-0.39 711-2) BASO x10^3 (test code 0.03 10*3/uL 0.01-0.07 = 704-7) Lab Interpretation Abnormal (test code = 97860-0) [facility] [id number] 16:14:38 Test Item Value Reference Range Interpretation Comments POCT Molecular Strep (test code = Negative Negative 34767-2) Lab Interpretation (test code = Normal 02112-1) [facility]. METABOLIC PANEL ([id number])2022-05-05 19:35:37 Test Item Value Reference Range Interpretation Comments NA (test code = 139 mmol/L 135-145 4087109837) K (test code = 4.4 mmol/L 3.5-5.0 8642789348) CL (test code = 104 mmol/L 98-108 7837268346) CO2 TOTAL (test code = 22 mmol/L 23-31 L 9369384401) AGAP (test code = 2-16 2372183335) BUN (test code = 11 mg/dL 7-23 5609939864) GLUCOSE (test code = 95 mg/dL 70-110 0046567510) CREATININE (test code = 0.71 mg/dL 0.50-1.04 8013877140) TOTAL BILI (test code = 0.4 mg/dL 0.1-1.2 5654852241) CALCIUM (test code = 9.1 mg/dL 8.6-10.6 9947988771) T PROTEIN (test code = 7.9 g/dL 6.3-8.2 4736687504) ALBUMIN (test code = 4.7 g/dL 3.5-5.0 1577797279) ALK PHOS (test code = 114 U/L 34-122 7450168826) ALTv (test code = 21 U/L 5-35 1742-6) AST(SGOT) (test code = 21 U/L 13-40 4213069033) eGFR (test code = mL/min/1.73m2 5802202189) WESLEY (test code = WESLEY) Association of [...] tests). Lab Interpretation Abnormal (test code = 59329-0) [facility] WITH [id number] 19:25:37 Test Item Value Reference Range Interpretation Comments WBC (test code = See_Comment [Automated 0894-2) message] The sy stem which generated this result transmitted reference range : 4.30 - 11.10 10*3/?L. The reference range was not used to interpret this result as normal/abnormal . RBC (test code = See_Comment [Automated 720-8) message] The sy stem which generated this [...] RDW-SD (test code = 41.7 fL 39.0-49.9 35269-2) RDW-CV (test code = 12.7 % 12.0-15.5 788-0) PLT (test code = See_Comment H [Automated 777-3) message] The sy stem which generated this result transmitted reference range : 166 - 358 10*3/ ?L. The reference r david was not used to interpret this result as normal/abnormal . MPV (test code = 8.8 fL 9.5-12.9 L 26903-0) NRBC/100 WBC (test See_Comment [Automat ed code = 5301383452) message] The system which generated this result transmitted reference range : 0.0 - 10.0 /100 WBCs. The refer ence range was not u sed to interpret th is result as normal/abnormal . NRBC x10^3 (test code See_Comment [Auto mated = 7403943750) message] The s ystem which generated this result transmitted reference range : 10*3/?L. The reference range was not used to interpret this result as normal/abnormal . GRAN MAT (NEUT) % 56.1 % (test code = 770-8) IMM GRAN % (test code 0.40 % = 8640131103) LYMPH % (test code = 29.9 % 736-9) MONO % (test code = 5.4 % 5905-5) EOS % (test code = 7.8 % 713-8) BASO % (test code = 0.4 % 706-2) GRAN MAT x10^3(ANC) 3.75 10*3/uL 1.88-7.09 (test code = 3533477704) IMM GRAN x10^3 (test 0.03 10*3/uL 0.00-0.06 code = 8984444121) LYMPH x10^3 (test code 2.00 10*3/uL 1.32-3.29 = 731-0) MONO x10^3 (test code 0.36 10*3/uL 0.33-0.92 = 742-7) EOS x10^3 (test code = 0.52 10*3/uL 0.03-0.39 H 711-2) BASO x10^3 (test code 0.03 10*3/uL 0.01-0.07 = 704-7) Lab Interpretation Abnormal (test code = 70686-6) [facility] [id number] 19:00:00 Test Item Value Reference Range Interpretation Comments POCT PREG (test code = 1605) negative On board controls acceptable with present C Line (test code = 3574) POCT PREG LOT # (test code = 3575) [id number] POCT PREG TEST DATE (test 08-11-2023 code = 3576) Lab Interpretation (test code = Normal 42941-4) [facility] [id number] 15:21:11 Test Item Value Reference Range Interpretation Comments WBC (test code = See_Comment [Automated 0090-2) message] The sy stem which generated this result transmitted reference range : 4.30 - 11.10 10*3/?L. The reference range was not used to interpret this result as normal/abnormal . RBC (test code = See_Comment [Automated 579-8) message] The sy stem which generated this [...] RDW-SD (test code = 42.6 fL 39.0-49.9 81163-2) RDW-CV (test code = 12.9 % 12.0-15.5 788-0) PLT (test code = See_Comment H [Automated 497-3) message] The sy stem which generated this result transmitted reference range : 166 - 358 10*3/ ?L. The reference r david was not used to interpret this result as normal/abnormal . MPV (test code = 9.1 fL 9.5-12.9 L 38182-8) NRBC/100 WBC (test See_Comment [Automat ed code = 8907094315) message] The system which generated this result transmitted reference range : 0.0 - 10.0 /100 WBCs. The refer ence range was not u sed to interpret th is result as normal/abnormal . NRBC x10^3 (test code See_Comment [Auto mated = 6870917305) message] The s ystem which generated this result transmitted reference range : 10*3/?L. The reference range was not used to interpret this result as normal/abnormal . GRAN MAT (NEUT) % 56.8 % (test code = 770-8) IMM GRAN % (test code 0.30 % = 9613337589) LYMPH % (test code = 29.5 % 736-9) MONO % (test code = 4.3 % 5905-5) EOS % (test code = 8.3 % 713-8) BASO % (test code = 0.8 % 706-2) GRAN MAT x10^3(ANC) 3.57 10*3/uL 1.88-7.09 (test code = 3167501089) IMM GRAN x10^3 (test 0.00-0.06 code = 0396961174) LYMPH x10^3 (test code 1.85 10*3/uL 1.32-3.29 = 731-0) MONO x10^3 (test code 0.27 10*3/uL 0.33-0.92 L = 742-7) EOS x10^3 (test code = 0.52 10*3/uL 0.03-0.39 H 711-2) BASO x10^3 (test code 0.05 10*3/uL 0.01-0.07 = 704-7) Lab Interpretation Abnormal (test code = 60230-4) [facility]. METABOLIC PANEL ([id number])2022-04-26 15:12:13 Test Item Value Reference Range Interpretation Comments NA (test code = 141 mmol/L 135-145 1464446846) K (test code = 3.4 mmol/L 3.5-5.0 L 3565276222) CL (test code = 104 mmol/L 98-108 7140111840) CO2 TOTAL (test code = 23 mmol/L 23-31 4990144269) AGAP (test code = 2-16 6516475640) BUN (test code = 9 mg/dL 7-23 7236777893) GLUCOSE (test code = 101 mg/dL 70-110 2332180858) CREATININE (test code = 0.82 mg/dL 0.50-1.04 8962576226) TOTAL BILI (test code = 0.7 mg/dL 0.1-1.2 2888422959) CALCIUM (test code = 9.3 mg/dL 8.6-10.6 5677595334) T PROTEIN (test code = 8.1 g/dL 6.3-8.2 5624586874) ALBUMIN (test code = 4.7 g/dL 3.5-5.0 6394731410) ALK PHOS (test code = 108 U/L 34-122 2702167421) ALTv (test code = 24 U/L 5-35 1742-6) AST(SGOT) (test code = 49 U/L 13-40 H 4956134651) eGFR (test code = mL/min/1.73m2 6338177377) WESLEY (test code = WESLEY) Association of [...] tests). Lab Interpretation Abnormal (test code = 02834-1) [facility] [id number] 14:45:00 Test Item Value Reference Range Interpretation Comments POCT PREG (test code = 1605) negative On board controls acceptable with present C Line (test code = 3574) POCT PREG LOT # (test code = 3575) [id number] POCT PREG TEST DATE (test 08/11/2023 code = 3576) Lab Interpretation (test code = Normal 53669-3) [facility] [id number] 01:22:00 Test Item Value Reference Range Interpretation Comments POCT PREG (test code = 1605) Negative On board controls acceptable with Present C Line (test code = 3574) POCT PREG LOT # (test code = 3575) [id number] POCT PREG TEST DATE (test 08-11-2023 code = 3576) Lab Interpretation (test code = Normal 29081-4) [facility] METABOLIC PANEL (NA, K, CL, CO2, GLUCOSE, BUN, CREATININE, CA)2022-04-07 23:01:10 Test Item Value Reference Range Interpretation Comments NA (test code = 138 mmol/L 135-145 1262255176) K (test code = 4.3 mmol/L 3.5-5.0 1388400273) CL (test code = 107 mmol/L 98-108 9800806319) CO2 TOTAL (test code = 20 mmol/L 23-31 L 8666934920) AGAP (test code = 2-16 6550941232) BUN (test code = 9 mg/dL 7-23 4022356348) GLUCOSE (test code = 204 mg/dL 70-110 H 1543823405) CREATININE (test code = 0.74 mg/dL 0.50-1.04 7454307089) CALCIUM (test code = 9.1 mg/dL 8.6-10.6 2221727925) eGFR (test code = mL/min/1.73m2 4483533005) WESLEY (test code = WESLEY) Association of [...] tests). Lab Interpretation Abnormal (test code = 73698-7) [facility] WITH [id number] 22:57:34 Test Item Value Reference Range Interpretation Comments WBC (test code = See_Comment [Automated 7827-2) message] The sy stem which generated this result transmitted reference range : 4.30 - 11.10 10*3/?L. The reference range was not used to interpret this result as normal/abnormal . RBC (test code = See_Comment [Automated 791-7) message] The sy stem which generated this [...] RDW-SD (test code = 42.9 fL 39.0-49.9 86649-4) RDW-CV (test code = 13.4 % 12.0-15.5 788-0) PLT (test code = See_Comment H [Automated 777-3) message] The sy stem which generated this result transmitted reference range : 166 - 358 10*3/ ?L. The reference r david was not used to interpret this result as normal/abnormal . MPV (test code = 8.9 fL 9.5-12.9 L 30314-7) NRBC/100 WBC (test See_Comment [Automat ed code = 2287300931) message] The system which generated this result transmitted reference range : 0.0 - 10.0 /100 WBCs. The refer ence range was not u sed to interpret th is result as normal/abnormal . NRBC x10^3 (test code See_Comment [Auto mated = [id number]) message] The s ystem which generated this result transmitted reference range : 10*3/?L. The reference range was not used to interpret this result as normal/abnormal . GRAN MAT (NEUT) % 88.7 % (test code = 770-8) IMM GRAN % (test code 0.70 % = [id number]) LYMPH % (test code = 9.4 % 736-9) MONO % (test code = 0.9 % 5905-5) EOS % (test code = 0.1 % 713-8) BASO % (test code = 0.2 % 706-2) GRAN MAT x10^3(ANC) 7.81 10*3/uL 1.88-7.09 H (test code = [id number]) IMM GRAN x10^3 (test 0.06 10*3/uL 0.00-0.06 code = [id number]) LYMPH x10^3 (test code 0.83 10*3/uL 1.32-3.29 L = 731-0) MONO x10^3 (test code 0.08 10*3/uL 0.33-0.92 L = 742-7) EOS x10^3 (test code = 0.03-0.39 L 711-2) BASO x10^3 (test code 0.01-0.07 = 704-7) Lab Interpretation Abnormal (test code = 87742-0) [facility] [id number] 14:07:00 Test Item Value Reference Range Interpretation Comments POCT PREG (test code = 1605) negative On board controls acceptable with present C Line (test code = 3574) POCT PREG LOT # (test code = 3575) [id number] POCT PREG TEST DATE (test 08/11/2023 code = 3576) Lab Interpretation (test code = Normal 99740-7) [facility] [id number] 13:52:00 Test Item Value Reference Range Interpretation Comments POCT PREG (test code = 1605) negative On board controls acceptable with C present Line (test code = 3574) Lab Interpretation (test code = Normal 81692-8) [facility] [id number] 14:59:00 Test Item Value Reference Range Interpretation Comments POCT PREG (test code = 1605) negative On board controls acceptable with yes C Line (test code = 3574) POCT PREG LOT # (test code = 3575) [id number] POCT PREG TEST DATE (test 07/11/2023 code = 3576) Lab Interpretation (test code = Normal 27961-7) [facility]. METABOLIC PANEL (56832)2022 17:51:43 Test Item Value Reference Range Interpretation Comments NA (test code = 139 mmol/L 135-145 3238351072) K (test code = 4.1 mmol/L 3.5-5 4692277354) CL (test code = 104 mmol/L 98-108 0887919994) CO2 TOTAL (test code = 22 mmol/L 23-31 L 2724500533) AGAP (test code = 2-16 9340414170) BUN (test code = 7 mg/dL 7-23 5373236017) GLUCOSE (test code = 114 mg/dL 70-110 H 2577934842) CREATININE (test code = 0.69 mg/dL 0.5-1.04 2702465267) TOTAL BILI (test code = 0.4 mg/dL 0.1-1.1 6907722496) CALCIUM (test code = 9.7 mg/dL 8.6-10.6 4412999310) T PROTEIN (test code = 7.2 g/dL 6.3-8.2 1176954968) ALBUMIN (test code = 4.6 g/dL 3.5-5 6749841400) ALK PHOS (test code = 65 U/L 34-122 6217457921) ALTv (test code = 15 U/L 5-35 2-6) AST(SGOT) (test code = 19 U/L 13-40 4424045354) eGFR (test code = mL/min/1.73m2 7724626606) WESLEY (test code = WESLEY) Association of [...] tests). Lab Interpretation Abnormal (test code = 44089-8) [facility] WITH [id number] 17:40:24 Test Item Value Reference Range Interpretation [...] RDW-SD (test code = 43.1 fL 39-49.9 52885-1) RDW-CV (test code = 13.2 % 12-15.5 788-0) PLT (test code = See_Comment [Automated 777-3) message] The sy stem which generated this result transmitted reference range : 166 - 358 10*3/ ?L. The reference r david was not used to interpret this result as normal/abnormal . MPV (test code = 9.5 fL 9.5-12.9 12592-1) NRBC/100 WBC (test See_Comment [Automat ed code = 4415992879) message] The system which generated this result transmitted reference range : 0.0 - 10.0 /100 WBCs. The refer ence range was not u sed to interpret th is result as normal/abnormal . NRBC x10^3 (test code See_Comment [Auto mated = 3868432573) message] The s ystem which generated this result transmitted reference range : 10*3/?L. The reference range was not used to interpret this result as normal/abnormal . GRAN MAT (NEUT) % 57.8 % (test code = 770-8) IMM GRAN % (test code 0.20 % = 9629608526) LYMPH % (test code = 30.8 % 736-9) MONO % (test code = 5.1 % 5905-5) EOS % (test code = 5.6 % 713-8) BASO % (test code = 0.5 % 706-2) GRAN MAT x10^3(ANC) 3.61 10*3/uL 1.88-7.09 (test code = 0623962090) IMM GRAN x10^3 (test 0-0.06 code = 4918541163) LYMPH x10^3 (test code 1.92 10*3/uL 1.32-3.29 = 731-0) MONO x10^3 (test code 0.32 10*3/uL 0.33-0.92 L = 742-7) EOS x10^3 (test code = 0.35 10*3/uL 0.03-0.39 711-2) BASO x10^3 (test code 0.03 10*3/uL 0.01-0.07 = 704-7) Lab Interpretation Abnormal (test code = 65936-8) [facility] [id number] 17:27:00 Test Item Value Reference Range Interpretation Comments POCT PREG (test code = 1605) negative On board controls acceptable with present C Line (test code = 3574) POCT PREG LOT # (test code = 3575) [id number] POCT PREG TEST DATE (test code = 3576) Lab Interpretation (test code = Normal 23712-6) [facility] Test Item Value Reference Range Interpretation Comments LIPASE (test code = 0744512887) 41 U/L 0-220 Lab Interpretation (test code = Normal 00061-1) [facility] [id number] 10:57:00 Test Item Value Reference Range Interpretation Comments POCT PREG (test code = 1605) Negative On board controls acceptable with Present C Line (test code = 3574) POCT PREG LOT # (test code = 3575) [id number] POCT PREG TEST DATE (test 03/12/2023 code = 3576) Lab Interpretation (test code = Normal 44903-5) [facility] METABOLIC PANEL (NA, K, CL, CO2, GLUCOSE, BUN, CREATININE, CA)2022-01-18 10:56:51 Test Item Value Reference Range Interpretation Comments NA (test code = 137 mmol/L 135-145 2644140969) K (test code = 4.6 mmol/L 3.5-5 Slight 3371652038) hemolysis CL (test code = 108 mmol/L 98-108 0030938531) CO2 TOTAL (test code 22 mmol/L 23-31 L = 2323663341) AGAP (test code = 2-16 3225878856) BUN (test code = 11 mg/dL 7-23 Slight 8186002704) hemolysis GLUCOSE (test code = 83 mg/dL 70-110 6349666630) CREATININE (test code 0.68 mg/dL 0.5-1.04 = 7727524529) CALCIUM (test code = 8.8 mg/dL 8.6-10.6 9199690018) eGFR (test code = mL/min/1.73m2 6718843584) WESLEY (test code = WESLEY) Association of [...] tests). Lab Interpretation Abnormal (test code = 01703-4) [facility] (ALB,T.PRO,BILI T,BU/BC,ALT,AST,ALK PHOS)2022-01-18 10:56:51 Test Item Value Reference Range Interpretation Comments TOTAL BILI (test code = 6524074948) 0.6 mg/dL 0.1-1.1 BILI UNCON (test code = 7544370676) 0.1 mg/dL 0.1-1.1 BILI CONJ (test code = 3295115745) 0.0 mg/dL 0-0.3 T PROTEIN (test code = 7111168753) 8.6 g/dL 6.3-8.2 H ALBUMIN (test code = 1592729485) 5.1 g/dL 3.5-5 H ALK PHOS (test code = 7064628332) 79 U/L 34-122 ALTv (test code = 1742-6) 117 U/L 5-35 H AST(SGOT) (test code = 1493945604) 163 U/L 13-40 H Lab Interpretation (test code = Abnormal 85788-4) [facility] [id number] 10:54:25 Test Item Value Reference Range Interpretation Comments PREG SERUM (test code Negative = 9224673613) WESLEY (test code = WESLEY) Less than 10 IU/L. ?If low titer or ectopic is suspected, resubmit specimen in 48-72 hours. [facility] [id number] 10:40:49 Test Item Value Reference Range Interpretation [...] RDW-SD (test code = 45.3 fL 39-49.9 86737-2) RDW-CV (test code = 14.5 % 12-15.5 788-0) PLT (test code = See_Comment [Automated 777-3) message] The sy stem which generated this result transmitted reference range : 166 - 358 10*3/ ?L. The reference r david was not used to interpret this result as normal/abnormal . MPV (test code = 9.5 fL 9.5-12.9 26985-8) NRBC/100 WBC (test See_Comment [Automat ed code = 4548619444) message] The system which generated this result transmitted reference range : 0.0 - 10.0 /100 WBCs. The refer ence range was not u sed to interpret th is result as normal/abnormal . NRBC x10^3 (test code See_Comment [Auto mated = 5364641835) message] The s ystem which generated this result transmitted reference range : 10*3/?L. The reference range was not used to interpret this result as normal/abnormal . GRAN MAT (NEUT) % 47.6 % (test code = 770-8) IMM GRAN % (test code 0.60 % = 4219373809) LYMPH % (test code = 39.9 % 736-9) MONO % (test code = 5.9 % 5905-5) EOS % (test code = 5.3 % 713-8) BASO % (test code = 0.7 % 706-2) GRAN MAT x10^3(ANC) 4.45 10*3/uL 1.88-7.09 (test code = 0854576986) IMM GRAN x10^3 (test 0.06 10*3/uL 0-0.06 code = 3837658229) LYMPH x10^3 (test code 3.74 10*3/uL 1.32-3.29 H = 731-0) MONO x10^3 (test code 0.55 10*3/uL 0.33-0.92 = 742-7) EOS x10^3 (test code = 0.50 10*3/uL 0.03-0.39 H 711-2) BASO x10^3 (test code 0.07 10*3/uL 0.01-0.07 = 704-7) Lab Interpretation Abnormal (test code = 30758-7) [facility] [id number] 18:31:00 Test Item Value Reference Range Interpretation Comments POCT PREG (test code = 1605) Negative On board controls acceptable with C Yes Line (test code = 3574) POCT PREG LOT # (test code = 3575) POCT PREG TEST DATE (test code = 3576) [facility] URINALYSIS W/O SPECIFIC [id number] 18:31:00 Test Item Value Reference Range Interpretation [...] = 3257) Trace Negative - Negative [facility]"
--- NOTE | 2022-10-23 08:56 | RAD REPORT ---
EXAM DESCRIPTION: CT - CTHCSPWOC - 10/23/2022 8:42 am CLINICAL HISTORY: Trauma, head and neck injury. fall, head injury, syncope, neck pain COMPARISON: Neck Angio dated 12/24/2021; Neck Angio dated 05/10/2020 TECHNIQUE: Axial 5 mm thick images of the head were obtained. Axial 2 mm thick images of the cervical spine were obtained with sagittal and coronal reconstruction images generated and reviewed. All CT scans are performed using dose optimization technique as appropriate and may include automated exposure control or mA/KV adjustment according to patient size. FINDINGS: CT HEAD WITHOUT CONTRAST: No acute hemorrhage, hydrocephalus or extra-axial collection is identified.No areas of brain edema or midline shift. The paranasal sinuses and mastoids are clear.The calvarium is intact. CT CERVICAL SPINE WITHOUT CONTRAST: No fracture or subluxation.No prevertebral soft tissues swelling is identified. IMPRESSION: No acute intracranial or cervical spine findings.
[2022-10-23] MEDS ORDERED: KETOROLAC 30 MG/ML INJ ONE (09:02)
[2022-10-23 09:29] LABS: Absolute Lymphocytes (CBC) 1.3 K/uL (0.7-4.9); Hematocrit 42.6 % (36.0-45.0); Lymphocytes % 16.9 % (15.3-44.8); MCV 86.4 fL (80-100); MPV 7.7 fL (7.6-11.3); RBC Red Blood Cell Count 4.93 M/uL (3.86-4.86)
[2022-10-23] MEDS ORDERED: ONDANSETRON 4 MG/2 ML VIAL ONE (09:32)
[2022-10-23] MEDS ORDERED: MORPHINE 4 MG/ML SYR ONE (09:32)
[2022-10-23 09:34] LABS: Protime INR 0.97
[2022-10-23 09:49] LABS: ALT/SGPT 37 U/L (13-56); AST/SGOT 26 U/L (15-37); Albumin 4.2 g/dL (3.4-5.0); Alkaline Phosphatase 108 U/L (45-117); BUN Blood Urea Nitrogen 7 mg/dL (7-18); Bicarbonate 26 mEq/L (21-32); Bilirubin Total 0.3 mg/dL (0.2-1.0); Glomerular Filtration Rate 110 ml/min (=/>90); Glucose Level 102 mg/dL (74-106); Magnesium 2.3 mg/dL (1.6-2.4); NT PRO-BNP 25 pg/mL (<125); Potassium 3.9 mEq/L (3.5-5.1); Protein, Total 8.6 g/dL (6.4-8.2); Sodium Level 139 mEq/L (136-145); Troponin High Sensitivity 3.4 pg/mL (<58.9)
--- NOTE | 2022-10-23 09:51 | RAD REPORT ---
EXAM DESCRIPTION: RAD - Chest Single View - 10/23/2022 9:43 am CLINICAL HISTORY: syncope COMPARISON: Chest Single View dated 01/26/2022; Chest Single View dated 01/06/2022; Chest Single View dated 12/24/2021; Chest Single View dated 08/13/2020 FINDINGS: Lines: None. Lungs: No evidence of edema or pneumonia. Pleural: No significant pleural effusions or pneumothorax. Cardiac: The heart size is within normal limits. Mediastinum: Within normal limits. Bones: No acute fractures. Other: None IMPRESSION: No acute cardiopulmonary disease.
--- NOTE | 2022-10-23 09:51 | RAD REPORT ---
EXAM DESCRIPTION: RAD - Shoulder Right 2 View - 10/23/2022 9:43 am CLINICAL HISTORY: fall, pain COMPARISON: No comparisons FINDINGS/IMPRESSION: No acute fracture. No malalignment. No significant focal degenerative changes.
[2022-10-23 09:52] LABS: Bilirubin Direct < 0.1 mg/dL (0-0.2); Bilirubin Indirect, Calculated ND mg/dL (0.2-0.8)
[2022-10-23] MEDS ORDERED: ACETAMINOPHEN 500 MG TAB ONE (10:12)
[2022-10-23] MEDS ORDERED: DIPHENHYDRAMINE 50 MG/ML VIAL ONE (10:12)
[2022-10-23] MEDS ORDERED: DIAZEPAM 10 MG/2 ML INJ SYRINGE ONE (11:04)
--- NOTE | 2022-10-23 11:14 | EDPHYS ---
Physician Documentation [facility] Name: Natanael Dyson Age: 27 yrs Sex: Female : 1995 Arrival Date: 10/23/2022 Time: 08: Bed 7 Private MD: ED Physician Neto Dean HPI: 10/23 08:25 This 27 yrs old Female presents to ER via EMS with complaints of Syncope. jmm 08:25 The patient has experienced syncope, collapsed. Onset: The symptoms/episode jmm began/occurred acutely, just prior to arrival. Duration: This was a single episode. This is a 27 year old female with a history of asthma, that presents to the ED with complaints of neck pain, right shoulder pain after a fall which occurred secondary to a syncope episode which occurred just prior to arrival. . Historical: - Allergies: 08:24 Compazine; bp 08:24 Reglan; bp 08:57 Ketorolac; bp - PMHx: 08:24 Carcinoma of breast; Asthma; Kidney stone; Migraine; UTI; Cerebrovascular accident; bp - PSHx: 08:24 section; tubal ligation; bp - Immunization history:: Adult Immunizations up to date. - Social history:: Smoking status: Patient denies any tobacco usage or history of. ROS: 08:25 Constitutional: Negative for fever, chills, and weight loss, Cardiovascular: Negative jmm for chest pain, palpitations, and edema, Respiratory: Negative for shortness of breath, cough, wheezing, and pleuritic chest pain. 08:25 Neck: Positive for pain with movement. 08:25 Neuro: Positive for syncope. 08:25 All other systems are negative. Exam: 08:25 Constitutional: This is a well developed, well nourished patient who is awake, alert, jmm and in no acute distress. Head/Face: atraumatic. Eyes: EOMI, no conjunctival erythema appreciated ENT: Moist Mucus Membranes 08:25 Chest/axilla: Normal chest wall appearance and motion. Cardiovascular: Regular rate and rhythm. No edema appreciated Respiratory: Normal respirations, no respiratory distress appreciated Abdomen/GI: Non distended Back: Normal ROM Skin: General appearance color normal MS/ Extremity: Moves all extremities, no obvious deformities appreciated, no edema noted to the lower extremities Neuro: Awake and alert Psych: Behavior is normal, Mood is normal, Patient is cooperative and pleasant 08:25 Neck: 08:25 Musculoskeletal/extremity: right anterior shoulder ttp, full [employer] strength, painful abduction, NVI. 08:25 Skin: Appearance: Color: normal in color. 08:25 Neuro: Orientation: is normal, Mentation: is normal, Memory: is normal. 08:25 Psych: Behavior/mood is pleasant, cooperative. Vital Signs: 08:23 BP 138 / 95; Pulse 113; Resp 18; Temp 98; Pulse Ox 99% ; bp 09:33 BP 138 / 106; Pulse 98; Resp 18; Pulse Ox 99% on R/A; ld1 10:06 Pulse 93; Resp 17; Pulse Ox 98% on R/A; ld1 MDM: 08:28 Patient medically screened. [facility] 11:11 Differential Diagnosis: cerebrovascular accident, idiopathic syncope, seizure, jmm vasovagal episode. Data reviewed: vital signs, nurses notes, radiologic studies, CT scan, plain films. Consideration of Admission/Observation Patient was admitted/placed on observation. Escalation of care including admission/observation considered. Counseling: I had a detailed discussion with the patient and/or guardian regarding: the historical points, exam findings, and any diagnostic results supporting the discharge/admit diagnosis, radiology results, the need for outpatient follow up, to return to the emergency department if symptoms worsen or persist or if there are any questions or concerns that arise at home. 10/23 08:25 Order name: Basic Metabolic Panel; Complete Time: 09:54 [facility] 10/23 08:25 Order name: CBC with Diff; Complete Time: 09:47 [facility] 10/23 08:25 Order name: LFT's; Complete Time: 09:54 [facility] 10/23 08:25 Order name: Magnesium; Complete Time: 09:54 [facility] 10/23 08:25 Order name: NT PRO-BNP; Complete Time: 09:54 [facility] 10/23 08:25 Order name: PT-INR; Complete Time: 09:47 [facility] 10/23 08:25 Order name: Troponin HS; Complete Time: 09:54 [facility] 10/23 08:25 Order name: XRAY Chest (1 view); Complete Time: 09:54 [facility] 10/23 08:28 Order name: CT Head C Spine; Complete Time: 09:14 [facility] 10/23 08:45 Order name: Shoulder Right (2 View) XRAY; Complete Time: 09:54 [facility] 10/23 08:25 Order name: EKG; Complete Time: 08:26 [facility] 10/23 08:25 Order name: Cardiac monitoring; Complete Time: 08:36 [facility] 10/23 08:25 Order name: EKG - Nurse/Tech; Complete Time: 08:36 [facility] 10/23 08:25 Order name: IV Saline Lock; Complete Time: 09:28 [facility] 10/23 08:25 Order name: Labs collected and sent; Complete Time: 09:28 [facility] 10/23 08:25 Order name: O2 Per Protocol; Complete Time: 08:28 [facility] 10/23 08:25 Order name: O2 Sat Monitoring; Complete Time: 08:28 [facility] 10/23 09:55 Order name: Sling; Complete Time: 10:39 jmm Administered Medications: 09:27 Not Given (Patient Refused): Ketorolac IVP 30 mg IVP once bp 09:27 Drug: morphine IVP or IV 4 mg Route: IVP; Infused Over: 4 mins; Site: left antecubital; bp 10:24 Follow up: Response: No adverse reaction bp 09:27 Drug: Ondansetron IVP 4 mg Route: IVP; Site: left antecubital; bp 10:24 Follow up: Response: No adverse reaction bp 10:10 Drug: Acetaminophen PO 650 mg Route: PO; bp 10:25 Follow up: Response: No adverse reaction bp 10:10 Drug: diphenhydrAMINE IVP 12.5 mg Route: IVP; Site: left antecubital; bp 10:25 Follow up: Response: No adverse reaction bp 11:02 Drug: Diazepam IVP 2 mg Route: IVP; Site: left antecubital; bp 11:02 Follow up: Response: No adverse reaction bp Disposition: 11:18 Co-signature as Attending Physician, Neto BRYSON was immediately available on-site ms3 in the Emergency Department for consultation in the care of the patient. Disposition Summary: 10/23/22 11:13 Discharge Ordered Location: Home [facility] Condition: Stable jm Diagnosis - Sprain of shoulder joint jmm - Syncope jmm Followup: m - With: Private Physician - When: 2 - 3 days - Reason: Recheck today's complaints, Continuance of care, Re-evaluation by your physician Followup: [facility] - With: Jose Luis Engel MD - When: 2 - 3 days - Reason: Recheck today's complaints, Continuance of care, Re-evaluation by your physician Discharge Instructions: - Discharge Summary Sheet jmm - Syncope jmm - Shoulder Sprain [facility] Forms: - Medication Reconciliation Form [facility] - Thank You Letter leeann - Antibiotic Education ruth - Prescription Opioid Use [facility] Prescriptions: - Zanaflex 4 mg Oral Tablet - take 1 tablet by ORAL route every 8 hours As needed; 20 tablet; Refills: 0, jmm Product Selection Permitted Signatures: Dispatcher [employer] EDMS Kolton Nazario PA PA Jayy Monzon, RN RN Neto Garcia DO DO ms3 Kellie Dean RN RN ld1
--- NOTE | 2022-10-23 11:14 | ER ---
Nurse's Notes [facility] Name: Natanael Dyson Age: 27 yrs Sex: Female : 1995 Arrival Date: 10/23/2022 Time: 08:13 Bed 7 Private MD: Diagnosis: Sprain of shoulder joint;Syncope Presentation: 10/23 08:23 Chief complaint: EMS states: SYNCOPAL FALL AT HOME WITH HEAD AND C-SPINE PAIN. bp Coronavirus screen: At this time, the client does not indicate any symptoms associated with coronavirus-19. Ebola Screen: No symptoms or risks identified at this time. Initial Sepsis Screen: Does the patient meet any 2 criteria? HR > 90 bpm. No. Patient's initial sepsis screen is negative. Does the patient have a suspected source of infection? No. Patient's initial sepsis screen is negative. Risk Assessment: Do you want to hurt yourself or someone else? Patient reports no desire to harm self or others. Onset of symptoms was October 23, 2022 at 08:00. 08:23 Method Of Arrival: EMS: [facility] bp 08:23 Acuity: THIERNO 3 bp Triage Assessment: 08:24 General: Appears uncomfortable, Behavior is cooperative, appropriate for age, anxious. bp Pain: Complains of pain in head and back of neck. EENT: No deficits noted. Neuro: Level of Consciousness is awake, alert, obeys commands, Oriented to Appropriate for age Reports dizziness, a syncopal episode. Cardiovascular: Rhythm is sinus tachycardia. Respiratory: No deficits noted. GI: No signs and/or symptoms were reported involving the gastrointestinal system. : No signs and/or symptoms were reported regarding the genitourinary system. Derm: No deficits noted. Musculoskeletal: No deficits noted. Historical: - Allergies: 08:24 Compazine; bp 08:24 Reglan; bp 08:57 Ketorolac; bp - PMHx: 08:24 Carcinoma of breast; Asthma; Kidney stone; Migraine; UTI; Cerebrovascular accident; bp - PSHx: 08:24 section; tubal ligation; bp - Immunization history:: Adult Immunizations up to date. - Social history:: Smoking status: Patient denies any tobacco usage or history of. Screenin:27 [facility] ED Fall Risk Assessment (Adult) History of falling in the last 3 months, bp including since admission No falls in past 3 months (0 pts). Abuse screen: Denies threats or abuse. Denies injuries from another. Nutritional screening: No deficits noted. Tuberculosis screening: No symptoms or risk factors identified. Assessment: 08:27 General: SEE TRIAGE NOTE. bp Vital Signs: 08:23 BP 138 / 95; Pulse 113; Resp 18; Temp 98; Pulse Ox 99% ; bp 09:33 BP 138 / 106; Pulse 98; Resp 18; Pulse Ox 99% on R/A; ld1 10:06 Pulse 93; Resp 17; Pulse Ox 98% on R/A; ld1 ED Course: 08:22 Patient arrived in ED. kj1 08:23 Jayy Wooten, ROSEY is Primary Nurse. bp 08:23 Kolton Nazario PA is PHCP. jmm 08:23 Neto Dean DO is Attending Physician. jmm 08:24 Triage completed. bp 08:27 Arm band placed on. bp 08:27 Patient has correct armband on for positive identification. Bed in low position. Call bp light in reach. Side rails up X2. 08:44 CT Head C Spine In Process Unspecified. EDMS 09:20 Inserted saline lock: 22 gauge in left antecubital area, using aseptic technique. Blood bp collected. 09:45 XRAY Chest (1 view) In Process Unspecified. EDMS 09:45 Shoulder Right (2 View) XRAY In Process Unspecified. EDMS 10:39 Sling applied to right arm. bp 11:13 Jose Luis Engel MD is Referral Physician. jmm 11:20 No provider procedures requiring assistance completed. IV discontinued, intact, ld1 bleeding controlled, No redness/swelling at site. Administered Medications: 09:27 Not Given (Patient Refused): Ketorolac IVP 30 mg IVP once bp 09:27 Drug: morphine IVP or IV 4 mg Route: IVP; Infused Over: 4 mins; Site: left antecubital; bp 10:24 Follow up: Response: No adverse reaction bp 09:27 Drug: Ondansetron IVP 4 mg Route: IVP; Site: left antecubital; bp 10:24 Follow up: Response: No adverse reaction bp 10:10 Drug: Acetaminophen PO 650 mg Route: PO; bp 10:25 Follow up: Response: No adverse reaction bp 10:10 Drug: diphenhydrAMINE IVP 12.5 mg Route: IVP; Site: left antecubital; bp 10:25 Follow up: Response: No adverse reaction bp 11:02 Drug: Diazepam IVP 2 mg Route: IVP; Site: left antecubital; bp 11:02 Follow up: Response: No adverse reaction bp Medication: 08:27 VIS not applicable for this client. bp Outcome: 11:13 Discharge ordered by . leeann 11:20 Discharged to home ambulatory. ld1 11:20 Condition: stable 11:20 Discharge instructions given to patient, family, Instructed on discharge instructions, follow up and referral plans. medication usage, Demonstrated understanding of instructions, follow-up care, medications, Prescriptions given X 1. 11:21 Patient left the ED. ld1 Signatures: Dispatcher [employer] EDMS Kolton Nazario PA PA jmm Peltier, Brian, RN RN Samantha Cervantes kj1 Kellie Dean RN RN ld1
[2022-10-23 13:07] VITALS: BP 138/106; O2SAT 99
--- NOTE | 2022-10-24 08:20 | EKG ---
Test Date: 2022-10-23 Test Time: 08:32:09 Paper Rewinder Operator: Ez HORNER MEASUREMENT RESULTS: Intervals: Rate: 96 LA: 140 QRSD: 86 QT: 350 QTc: 442 [place]: P: 28 LA: 140 QRS: 81 T: 35 INTERPRETIVE STATEMENTS: Normal sinus rhythm Normal ECG Compared to ECG 01/26/2022 08:34:57 Sinus tachycardia no longer present Myocardial infarct finding no longer present Electronically Signed On 10-24-22 08:17:36 CDT by Murphy Vines
== END 2022-10-23 11:21 | disposition home or self-care (01) ==
LOC: ER 08:13
DX: S43.401A Unspecified sprain of right shoulder joint, initial encounter (principal); Z88.8 Allergy status to other drugs, medicaments and biological substances; Z86.73 Personal history of transient ischemic attack (TIA), and cerebral infarction without residual deficits; Z85.3 Personal history of malignant neoplasm of breast
CPT/HCPCS: 93005; 85025; 80048; 36415; 83735; 85610; 80076; 84484; 83880; 70450; 72125; 71045; 73030; 96375; 96374; 99285; J1200; J3360; J2405

== ENCOUNTER 2022-11-10 07:19 | Emergency (ER) | payer OTHER ==
[2022-11-10 07:40] LABS: Specific Gravity 1.024 (1.005-1.030)
--- OUTSIDE RECORDS SUMMARY | 2022-11-10 07:41 | XMS REPORT | Continuity of Care Document ---
:1995 Author Organization [facility] t Address [address] [place] [address] [address] [place] [address] Care Team Providers Name Role Phone JEREMY GREENE Primary Care Physician Unavailable PRASANNA VARGAS Attending Clinician Unavailable JEREMY GREENE Attending Clinician Unavailable JEREMY GREENE Attending Clinician Unavailable VIJAY MARTINEZ Attending Clinician Unavailable REJI DÍAZ Attending Clinician Unavailable Gurjit Lim MD Attending Clinician CELINA FINNEY Attending Clinician Unavailable Ponce FELIX, Rad K.HPilar Attending Clinician KASSANDRA PUGH Attending Clinician Unavailable KENNEDY WHITLEY Attending Clinician Unavailable Kennedy Butler Attending Clinician Doctor Unassigned, [place] Attending Clinician Unavailable MANJU NEWLEL Attending Clinician Unavailable Manju Giraldo Attending Clinician CARI KAUR Attending Clinician Unavailable Cari Silvestre Attending Clinician Unknown, Attending Attending Clinician Unavailable PAUL SAMAYOA Attending Clinician Unavailable Paul Hunt Attending Clinician BENNETT MILLER Attending Clinician Unavailable KARON NORTON [...] Clinician ANGELICA VIVEROS Attending Clinician Unavailable Felice FIELD RADIO OPERATOR, Angelica Attending Clinician DARRION WYATT Attending Clinician Unavailable DARRION WYATT Attending Clinician Unavailable Vijay Teran Attending Clinician [...] Clinician Akinsipe WHCNP, Cricket Lopez Attending Clinician [phone] [phone] CURRIE, Leslie Attending Clinician Unavailable Flaco Katz Attending Clinician [...] Only, Filippo Shirley Test Attending Clinician Unavailable EbraThony Cardoso Attending Clinician THONY JOHNSON Attending Clinician Unavailable SCOTT FLETCHER Attending Clinician Unavailable PINO HOFF Attending Clinician Unavailable ATANASOV, STRAHIL T Attending Clinician Unavailable ATANASOV, STRAHIL T Attending Clinician Unavailable AMELIA HAMMOND Attending Clinician Unavailable RAD SERRA Attending Clinician Unavailable KAYLEY SANDOVAL Attending Clinician Unavailable Kassandra Robeldo RN Attending Clinician Unavailable Karin Alvarado Attending Clinician Dennis FIELD RADIO OPERATOR, Alissa Attending Clinician Anna Kim MD Attending [...] Date Expiration Date [facility] [id number] 2019 MEDICAID 00:00:00 Problems Condition Condition Condition Status Onset Resolution Last Treating Co mments Source Name Details Category Date Date Treatment Clinician Date Influenza Influenza Disease Active 2021-05 Uni vers vaccine vaccine 0-18 ity of needed needed 00:00: [address] Myalgia Myalgia Disease Active 2021-05 Univers 0-18 ity of 00:00: [address] Acute Acute Disease Active 2021-05 Univers cough cough 0-18 ity of 00:00: [address] Hx of Hx of Disease Active 2021-05 Univers extrinsic extrinsic 0-18 ity of asthma asthma 00:00: [place] [facility] Breast Breast Disease Active Univers pain in pain in 12-17 ity of female female 00:00: [place] [facility] Anxiety Anxiety Disease Active Univers disorder, disorder, 12-17 ity of unspecif[place] [facility] Generalize Generalize Disease Active U nivers d anxiety d anxiety 4-20 ity of disorder disorder 00:00: [place] [facility] Nephrolith Nephrolith Disease Active U nivers iasis iasis 4-20 ity of 00:00: [place] [facility] Paresthesi Paresthesi Disease Active U nivers a [...] History SDOH University o f Alcohol Std [place] [facility] Drinks Branch History SDOH University o f Alcohol Binge [place] [facility] History SDOH University o f Alcohol Comment [place] Med ical Branch Exposure to 2022-08-26 2022-09-05 Not sure [facility] SARS-CoV-2 00:00:00 09:28:00 [facility] (event) Branch Alcohol intake 2022-07-31 2022-07-31 Ex-drinker University of 00:00:00 00:00:00 (finding) [facility] [place] [facility] Tobacco use and 2021-12-12 2021-12-12 Smokeless tobacco Un iversity of exposure 00:00:00 00:00:00 non-user [place] [facility] [place] History SDOH 2019-02-06 2019-02-06 1 University o f Alcohol Frequency 00:00:00 00:00:00 [facility] Sex Assigned At [birth year] Universit y of 00:00:00 00:00:00 [facility] [place] [facility] Smoking Status Start Date Stop Date Source Never smoked tobacco [facility] Medications Ordered Filled Start Stop Current Ordering Indication Dosage Frequency Signature Comments Components Source Medication Medication Date Date Medication? Clinician (SIG) Name Name mirtazapine Yes 15mg Take 1 Univ ers 15 mg 5-12 tablet by ity of tablet 00:00: mouth at [place] 00 bedtime. Medical Branch mirtazapine Yes 15mg Take 1 Univ ers 15 mg 5-12 tablet by ity of tablet 00:00: mouth at [place] 00 bedtime. Medical Branch meloxicam 2023-0 Yes 15mg Take 1 Univer s 15 mg 5-09 tablet by ity of tablet 00:00: mouth in [place] 00 the Medical morning. Branch meloxicam 2023-0 Yes 15mg Take 1 Univer s 15 mg 5-09 tablet by ity of tablet 00:00: mouth in [place] 00 the Medical morning. Branch meloxicam 2023-0 Yes 15mg Take 1 Univer s 15 mg 5-09 tablet by ity of tablet 00:00: mouth in [place] 00 the Medical morning. Branch verapamil 2023-0 Yes 120mg Take 1 Unive rs SR 120 mg 5-08 tablet by ity o f ER tablet 00:00: mouth in [facility] 00 the Medical morning. Branch verapamil 2023-0 Yes 120mg Take 1 Unive rs SR 120 mg 5-08 tablet by ity o f ER tablet 00:00: mouth in [facility] 00 the Medical morning. Branch verapamil 2023-0 Yes 120mg Take 1 Unive rs SR 120 mg 5-08 tablet by ity o f ER tablet 00:00: mouth in [facility] 00 the Medical morning. Branch OLANZapine 2022-0 Yes 10mg Take 1 Unive rs 10 mg 4-27 tablet by ity of tablet 00:00: mouth in [place] 00 the Medical morning. Branch cloNIDine 2022-0 Yes TAKE 1-2 Univ ers 0.1 mg 4-27 TABLETS BY ity of tablet 00:00: MOUTH AT [place] [address] BEDTIME Medical NEEDED FOR Branch SLEEP AND ANXIETY OLANZapine 2022-0 Yes 10mg Take 1 Unive rs 10 mg 4-27 tablet by ity of tablet 00:00: mouth in [place] the Medical morning. Branch cloNIDine 2022-0 Yes TAKE 1-2 Univ ers 0.1 mg 4-27 TABLETS BY ity of tablet 00:00: MOUTH AT [place] [address] BEDTIME Medical NEEDED FOR Branch SLEEP AND ANXIETY OLANZapine 3-0 Yes 10mg Take 1 Unive rs 10 mg 4-27 tablet by ity of tablet 00:00: mouth in [place] 00 the Medical morning. Branch cloNIDine 2022-0 Yes TAKE 1-2 Univ ers 0.1 mg 4-27 TABLETS BY ity of tablet 00:00: MOUTH AT [place] [address] BEDTIME Medical NEEDED FOR Branch SLEEP AND ANXIETY NaCl 0.9% 2022-0 2022- No 1000mL at 999 Uni vers (NS) bolus 09-05 mL/hr, ity of infusion 18:15: 18:08 1,000 mL, [place] 1,000 mL 00 :00 IV Medical Infusion, Branch ONCE, 1 dose, On Sat09/05/22 at 1315, STAT acetaminoph 2022- No 650mg 650 mg, U nivers en 09-05 Oral, ity of (TYLENOL) 17:30: 17:24 ONCE, 1 [place] tablet 650 00 :00 dose, On Medic al mg Sat09/05/22 at 1230, [place] ondansetron 2022- No 4mg 4 mg, Slow Univers (ZOFRAN 09-05 IV Push, ity of (PF)) 17:15: 17:23 ONCE, 1 [place] injection 4 00 :00 dose, On Medi yessi mg Sat09/05/22 at 1215, [place] magnesium 2022- No 2g [...] 00 :00 ONCE, 1 Medical dose, On Sat09/05/22 at 1030, Routine NaCl 0.9% 2022- No 1000mL at 999 Uni vers (NS) bolus 09-05 mL/hr, ity of infusion 15:00: 17:12 1,000 mL, [place] 1,000 mL 00 :00 IV Medical Infusion, Branch ONCE, 1 dose, On Sat09/05/22 at 1000, STAT methylpredn 2022- No 125mg 125 mg, U nivers isolone sod 09-05 Intravenou i ty of succ 14:45: 14:35 s, ONCE, 1 [place] (SOLU-MEDRO 00 :00 dose, On Medi yessi L) Wed Branch injection 09/05/22 at 125 mg 0945, 2 mL butalbital- 2022- No 1{tbl} 1 tablet, Univers acetaminoph 09-05 Oral, ity of en-caff 14:00: 14:34 ONCE, 1 [place] (ESGIC) 00 :00 dose, On Medical 50-325-40 Wed Branch mg tablet 1 09/05/22 at tablet 0900, [place] diphenhydrA 2022- No 25mg 25 mg, Uni vers MINE 09-05 Slow IV ity of (BENADRYL) 14:00: 14:39 Push, [place] injection 00 :00 ONCE, 1 Medical 25 mg dose, On Branch 09/05/22 at 0900, STAT proMETHazin 2022- No 12.5mg 12.5 mg, Univers e 09-05 IV ity of (PHENERGAN) 14:00: 14:40 Piggy[place], [place] 12.5 mg in 00 :00 ONCE, 1 Medica l NaCl 0.9% dose, On Branch (NS) 50 mL [facility] IV 09/05/22 at piggyback 0900, [place] carvediloL 2022-0 Yes [id number] 25mg Take 1 U nivers 25 mg 4-26 tablet by ity of tablet 00:00: mouth in [place] [address] the morning [place] and 1 tablet in the evening. Take with meals. losartan 50 2022-0 Yes [id number] 50mg Take 1 Univers mg tablet 4-26 tablet by ity o f 00:00: mouth in [place] [address] the morning [place] and 1 tablet in the evening. carvediloL 2022-0 Yes [id number] 25mg Take 1 U nivers 25 mg 4-26 tablet by ity of tablet 00:00: mouth in [address] morning [place] and 1 tablet in the evening. Take with meals. losartan 50 2023-0 Yes [id number] 50mg Take 1 Univers mg tablet 4-26 tablet by ity o f 00:00: mouth in [place] [address] the Medical morning Branch and 1 tablet in the evening. carvediloL 2023-0 Yes [id number] 25mg Take 1 U nivers 25 mg 4-26 tablet by ity of tablet 00:00: mouth in [place] [address] the Medical morning Branch and 1 tablet in the evening. Take with meals. losartan 50 3-0 Yes [id number] 50mg Take 1 Univers mg tablet 4-26 tablet by ity o f 00:00: mouth in [place] [address] the Medical morning Branch and 1 tablet in the evening. carvediloL 2023-0 Yes [id number] 25mg Take 1 U nivers 25 mg 4-26 tablet by ity of tablet 00:00: mouth in [place] [address] the Medical morning [place] and 1 tablet in the evening. Take with meals. losartan 50 3-0 Yes [id number] 50mg Take 1 Univers mg tablet 4-26 tablet by ity o f 00:00: mouth in [place] [address] the Medical morning Branch and 1 tablet in the evening. carvediloL 2023-0 Yes [id number] 25mg Take 1 U nivers 25 mg 4-26 tablet by ity of tablet 00:00: mouth in [place] [address] the [facility] morning [place] and 1 tablet in the evening. Take with meals. losartan 50 3-0 Yes [id number] 50mg Take 1 Univers mg tablet 4-26 tablet by ity o f 00:00: mouth in [place] [address] the Medical morning [place] and 1 tablet in the evening. carvediloL 2023-0 Yes [id number] 25mg Take 1 U nivers 25 mg 4-26 tablet by ity of tablet 00:00: mouth in [place] [address] the [facility] morning [place] and 1 tablet in the evening. Take with meals. losartan 50 3-0 Yes [id number] 50mg Take 1 Univers mg tablet 4-26 tablet by ity o f 00:00: mouth in [place] [address] the [facility] morning [place] and 1 tablet in the evening. carvediloL 2023-0 Yes [id number] 25mg Take 1 U nivers 25 mg 4-26 tablet by ity of tablet 00:00: mouth in [address] morning [place] and 1 tablet in the evening. Take with meals. losartan 50 3-0 Yes [id number] 50mg Take 1 Univers mg tablet 4-26 tablet by ity o f 00:00: mouth in the Medical morning Branch and 1 tablet in the evening. carvediloL 2023-0 Yes [id number] 25mg Take 1 U nivers 25 mg 4-26 tablet by ity of tablet 00:00: mouth in 00 the Medical morning Branch and 1 tablet in the evening. Take with meals. losartan 50 2023-0 Yes [id number] 50mg Take 1 Univers mg tablet 4-26 tablet by ity o f 00:00: mouth in the Medical morning Branch and 1 tablet [...] by ity of tablet 00:00: mouth 3 00 (three) Medical times Branch daily as needed. cyclobenzap 2022-0 Yes 10mg Take 1 Univ ers rine 10 mg 3-26 tablet by ity of tablet 00:00: mouth 3 00 (three) Medical times Branch daily as needed. maalox:diph 2022-0 2022- No 15mL 15 mL, Uni vers enhydrAMINE 08-01 Oral, ity of :lidocaine 00:45: 00:44 ONCE, 1 [place] 2 % viscous 00 :00 dose, On Medi yessi 1:1:1 [facility] Branch ([facility] 07/31/[address] [facility]) 1944, [place] oral suspension 15 mL ketorolac 2022-0 2022- No 15mg 15 mg, Unive rs (TORADOL) 08-01 Slow IV ity of injection 00:15: 00:44 [place], [place] 15 mg 00 :00 ONCE, 1 Medical dose, On Branch [facility] 07/31/22 at 1914, Routine ondansetron 2022-0 2022- No 4mg 4 mg, Slow Univers (ZOFRAN 08-01 IV Push, ity of (PF)) 00:15: 00:46 ONCE, 1 [place] injection 4 00 :00 dose, On [facility] mg [facility] Branch 07/31/22 at 1914, [place] famotidine 2022-0 2022- No 20mg 20 mg, Univ ers (PEPCID 08-01 Slow IV ity of (PF)) 00:15: 00:46 [place], [place] injection 00 :00 ONCE, 1 Medical 20 mg dose, On Branch [facility] 07/31/22 at 1914, [place] ondansetron 2022-0 Yes [id number] 4mg Take 1 Univers 4 mg 3-21 tablet by ity of disintegrat 00:00: mouth [place] ing tablet 00 every 8 Medica l (eight) Branch hours as needed for Nausea and Vomiting (N/V). sucralfate 3-0 Yes [id number] 1g Take 1 U nivers 1 gram 3-21 tablet by ity of tablet 00:00: mouth [place] 00 before Medical meals and Branch at bedtime. ondansetron 2023-0 Yes [id number] 4mg Take 1 Univers 4 mg 3-21 tablet by ity of disintegrat 00:00: mouth [place] ing tablet 00 every 8 Medica l (eight) Branch hours as needed for Nausea and Vomiting (N/V). sucralfate 2023-0 Yes [id number] 1g Take 1 U nivers 1 gram 3-21 tablet by ity of tablet 00:00: mouth [place] 00 before Medical meals and Branch at bedtime. ondansetron 2023-0 Yes [id number] 4mg Take 1 Univers 4 mg 3-21 tablet by ity of disintegrat 00:00: mouth [place] ing tablet 00 every 8 Medica l (eight) Branch hours as needed for Nausea and Vomiting (N/V). sucralfate 2023-0 Yes [id number] 1g Take 1 U nivers 1 gram 3-21 tablet by ity of tablet 00:00: mouth [place] 00 before Medical meals and Branch at bedtime. ondansetron 2023-0 Yes [id number] 4mg Take 1 Univers 4 mg 3-21 tablet by ity of disintegrat 00:00: mouth [place] ing tablet 00 every 8 Medica l (eight) Branch hours as needed for Nausea and Vomiting (N/V). sucralfate 2023-0 Yes [id number] 1g Take 1 U nivers 1 gram 3-21 tablet by ity of tablet 00:00: mouth [place] 00 before Medical meals and Branch at bedtime. ondansetron 2023-0 Yes [id number] 4mg Take 1 Univers 4 mg 3-21 tablet by ity of disintegrat 00:00: mouth [place] ing tablet 00 every 8 Medica l (eight) Branch hours as needed for Nausea and Vomiting (N/V). sucralfate 2023-0 Yes [id number] 1g Take 1 U nivers 1 gram 3-21 tablet by ity of tablet 00:00: mouth [place] 00 before Medical meals and Branch at bedtime. ondansetron 2023-0 Yes [id number] 4mg Take 1 Univers 4 mg 3-21 tablet by ity of disintegrat 00:00: mouth [place] ing tablet 00 every 8 Medica l (eight) Branch hours as needed for Nausea and Vomiting (N/V). sucralfate 2023-0 Yes [id number] 1g Take 1 U nivers 1 gram 3-21 tablet by ity of tablet 00:00: mouth [place] 00 before Medical meals and Branch at bedtime. ondansetron 2023-0 Yes [id number] 4mg Take 1 Univers 4 mg 3-21 tablet by ity of disintegrat 00:00: mouth [place] ing tablet 00 every 8 Medica l (eight) Branch hours as needed for Nausea and Vomiting (N/V). sucralfate 2023-0 Yes [id number] 1g Take 1 U nivers 1 gram 3-21 tablet by ity of tablet 00:00: mouth [place] 00 before Medical meals and Branch at bedtime. ondansetron 2023-0 Yes [id number] 4mg Take 1 Univers 4 mg 3-21 tablet by ity of disintegrat 00:00: mouth [place] ing tablet 00 every 8 Medica l (eight) Branch hours as needed for Nausea and Vomiting (N/V). sucralfate 2023-0 Yes [id number] 1g Take 1 U nivers 1 gram 3-21 tablet by ity of tablet 00:00: mouth [place] 00 before Medical meals and Branch at bedtime. ondansetron 2023-0 Yes [id number] 4mg Take 1 Univers 4 mg 3-21 tablet by ity of disintegrat 00:00: mouth [place] ing tablet 00 every 8 Medica l (eight) Branch hours as needed for Nausea and Vomiting (N/V). sucralfate 2023-0 Yes [id number] 1g Take 1 U nivers 1 gram 3-21 tablet by ity of tablet 00:00: mouth [place] 00 before Medical meals and Branch at bedtime. ondansetron 2023-0 Yes [id number] 4mg Take 1 Univers 4 mg 3-21 tablet by ity of disintegrat 00:00: mouth [place] ing tablet 00 every 8 Medica l (eight) Branch hours as needed for Nausea and Vomiting (N/V). sucralfate 2023-0 Yes [id number] 1g Take 1 U nivers 1 gram 3-21 tablet by ity of tablet 00:00: mouth [place] 00 before Medical meals and Branch at bedtime. ondansetron 2023-0 Yes [id number] 4mg Take 1 Univers 4 mg 3-21 tablet by ity of disintegrat 00:00: mouth [place] ing tablet 00 every 8 Medica l (eight) Branch hours as needed for Nausea and Vomiting (N/V). sucralfate 2023-0 Yes [id number] 1g Take 1 U nivers 1 gram 3-21 tablet by ity of tablet 00:00: mouth [place] 00 before Medical meals and Branch at bedtime. ondansetron 2023-0 Yes [id number] 4mg Take 1 Univers 4 mg 3-21 tablet by ity of disintegrat 00:00: mouth [place] ing tablet 00 every 8 Medica l (eight) Branch hours as needed for Nausea and Vomiting (N/V). sucralfate 2023-0 Yes [id number] 1g Take 1 U nivers 1 gram 3-21 tablet by ity of tablet 00:00: mouth [place] 00 before Medical meals and Branch at bedtime. ondansetron 2023-0 Yes [id number] 4mg Take 1 Univers 4 mg 3-21 tablet by ity of disintegrat 00:00: mouth [place] ing tablet 00 every 8 Medica l (eight) Branch hours as needed for Nausea and Vomiting (N/V). sucralfate 2023-0 Yes [id number] 1g Take 1 U nivers 1 gram 3-21 tablet by ity of tablet 00:00: mouth [place] 00 before Medical meals and Branch at bedtime. pantoprazol 2023-0 2023- No [id number] 40mg Take 1 Univers e 40 mg EC 3-21 04-05 tablet by ity of tablet 00:00: 04:59 mouth in [place] 00 :00 the Medical morning Branch for 14 days. pantoprazol 2023-0 3- No [id number] 40mg Take 1 Univers e 40 mg [...] tablet by ity o f 00:00: mouth. [place] [facility] traMADoL 50 2023-0 Yes 50mg Take 1 Univ ers mg tablet 3-13 tablet by ity o f 00:00: mouth. [place] [facility] Branch traMADoL 50 2023-0 Yes 50mg Take 1 Univ ers mg tablet 3-13 tablet by ity o f 00:00: mouth. Medical Branch traMADoL 50 2023-0 Yes 50mg Take 1 Univ ers mg tablet 3-13 tablet by ity o f 00:00: mouth. Medical Branch traMADoL 50 3-0 Yes 50mg Take 1 Univ ers mg tablet 3-13 tablet by ity o f 00:00: mouth. Medical Branch traMADoL 50 3-0 Yes 50mg Take 1 Univ ers mg tablet 3-13 tablet by ity o f 00:00: mouth. Medical Branch traMADoL 50 3-0 Yes 50mg Take 1 Univ ers mg tablet 3-13 tablet by ity o f 00:00: mouth. [place] [facility] traMADoL 50 3-0 Yes 50mg Take 1 Univ ers mg tablet 3-13 tablet by ity o f 00:00: mouth. Medical Branch traMADoL 50 3-0 Yes 50mg Take 1 Univ ers mg tablet 3-13 tablet by ity o f 00:00: mouth. Medical Branch traMADoL 50 2022-0 Yes 50mg Take 1 Univ ers mg tablet 3-13 tablet by ity o f 00:00: mouth. Medical Branch traMADoL 50 3-0 Yes 50mg Take 1 Univ ers mg tablet 3-13 tablet by ity o f 00:00: mouth. [place] [facility] Branch ibuprofen 2023-0 Yes [id number] 600mg Take 1 Univers 600 mg 3-05 [id number] tablet by ity of tablet 00:00: mouth [place] [address] every 6 Medical (six) Branch hours as needed for Pain (scale 4-6). ibuprofen 2023-0 Yes [id number] 600mg Take 1 Univers 600 mg 3-05 [id number] tablet by ity of tablet 00:00: mouth [place] [address] every 6 Medical (six) Branch hours as needed for Pain (scale 4-6). ibuprofen 2023-0 Yes [id number] 600mg Take 1 Univers 600 mg 3-05 [id number] tablet by ity of tablet 00:00: mouth [place] [address] every 6 Medical (six) Branch hours as needed for Pain (scale 4-6). ibuprofen 2023-0 2023- No [id number] 600mg Take 1 Univers 600 mg 3-05 03-21 [id number] tablet by ity o f tablet 00:00: 00:00 mouth [place] 00 :00 every 6 Medical (six) Branch hours as needed for Pain (scale 4-6). citalopram 2023-0 Yes 10mg Take 1 Unive rs 10 mg 2-17 tablet by ity of tablet 00:00: mouth in [place] the Medical morning. Branch QUEtiapine 2023-0 Yes Univers 400 mg 2-17 ity of tablet 00:00: [place] 00 Medical Branch gabapentin 2023-0 Yes Univers 600 mg 2-17 ity of tablet 00:00: [place] 00 Medical Branch citalopram 2023-0 Yes 10mg Take 1 Unive rs 10 mg 2-17 tablet by ity of tablet 00:00: mouth in [place] the Medical morning. Branch QUEtiapine 2023-0 Yes Univers 400 mg 2-17 ity of tablet 00:00: [place] 00 Medical Branch gabapentin 2023-0 Yes Univers 600 mg 2-17 ity of tablet 00:00: [place] 00 Medical Branch citalopram 2023-0 Yes 10mg Take 1 Unive rs 10 mg 2-17 tablet by ity of tablet 00:00: mouth in [place] the Medical morning. Branch QUEtiapine 2023-0 Yes Univers 400 mg 2-17 ity of tablet 00:00: [place] 00 Medical Branch gabapentin 2023-0 Yes Univers 600 mg 2-17 ity of tablet 00:00: [place] 00 Medical Branch citalopram 2023-0 Yes 10mg Take 1 Unive rs 10 mg 2-17 tablet by ity of tablet 00:00: mouth in [place] the Medical morning. Branch QUEtiapine 2023-0 Yes Univers 400 mg 2-17 ity of tablet 00:00: [place] 00 Medical Branch gabapentin 2023-0 Yes Univers 600 mg 2-17 ity of tablet 00:00: [place] 00 Medical Branch citalopram 2023-0 Yes 10mg Take 1 Unive rs 10 mg 2-17 tablet by ity of tablet 00:00: mouth in [place] the Medical morning. Branch QUEtiapine 2023-0 Yes Univers 400 mg 2-17 ity of tablet 00:00: [place] 00 Medical Branch gabapentin 2023-0 Yes Univers 600 mg 2-17 ity of tablet 00:00: [place] 00 Medical Branch citalopram 2023-0 Yes 10mg Take 1 Unive rs 10 mg 2-17 tablet by ity of tablet 00:00: mouth in [place] the Medical morning. Branch QUEtiapine 2023-0 Yes Univers 400 mg 2-17 ity of tablet 00:00: [place] 00 Medical Branch gabapentin 2023-0 Yes Univers 600 mg 2-17 ity of tablet 00:00: [place] 00 Medical Branch citalopram 2023-0 Yes 10mg Take 1 Unive rs 10 mg 2-17 tablet by ity of tablet 00:00: mouth in [place] the Medical morning. Branch QUEtiapine 2023-0 Yes Univers 400 mg 2-17 ity of tablet 00:00: [place] 00 Medical Branch gabapentin 2023-0 Yes Univers 600 mg 2-17 ity of tablet 00:00: [place] 00 Medical Branch citalopram 2023-0 Yes 10mg Take 1 Unive rs 10 mg 2-17 tablet by ity of tablet 00:00: mouth in [place] the Medical morning. Branch QUEtiapine 2023-0 Yes Univers 400 mg 2-17 ity of tablet 00:00: [place] 00 Medical Branch gabapentin 2023-0 Yes Univers 600 mg 2-17 ity of tablet 00:00: [place] 00 Medical Branch citalopram 2023-0 Yes 10mg Take 1 Unive rs 10 mg 2-17 tablet by ity of tablet 00:00: mouth in [place] the Medical morning. Branch QUEtiapine 2023-0 Yes Univers 400 mg 2-17 ity of tablet 00:00: [place] 00 Medical Branch gabapentin 2023-0 Yes Univers 600 mg 2-17 ity of tablet 00:00: [place] 00 Medical Branch citalopram 2023-0 Yes 10mg Take 1 Unive rs 10 mg 2-17 tablet by ity of tablet 00:00: mouth in [place] the Medical morning. Branch QUEtiapine 2023-0 Yes Univers 400 mg 2-17 ity of tablet 00:00: [place] 00 Medical Branch gabapentin 2023-0 Yes Univers 600 mg 2-17 ity of tablet 00:00: [place] 00 Medical Branch citalopram 2023-0 Yes 10mg Take 1 Unive rs 10 mg 2-17 tablet by ity of tablet 00:00: mouth in [place] the Medical morning. Branch QUEtiapine 2023-0 Yes Univers 400 mg 2-17 ity of tablet 00:00: [place] 00 Medical Branch gabapentin 2023-0 Yes Univers 600 mg 2-17 ity of tablet 00:00: [place] 00 Medical Branch methylPREDN 2023-0 Yes [id number] Take by Univers ISolone 2-11 mouth ity of (MEDROL, 00:00: SEE-INSTRU [place] ANABELA,) 4 mg 00 CTIONS. Medica l tablets follow Branch package directions methylPREDN 2023-0 Yes [id number] Take by Univers ISolone 2-11 mouth ity of (MEDROL, 00:00: SEE-INSTRU [place]ELA,) 4 mg 00 CTIONS. Medica l tablets follow Branch package directions methylPREDN 2023-0 Yes [id number] Take by Univers ISolone 2-11 mouth ity of (MEDROL, 00:00: SEE-INSTRU [place] ANABELA,) 4 mg 00 CTIONS. Medica l tablets follow Branch package directions methylPREDN 2023-0 Yes [id number] Take by Univers ISolone 2-11 mouth ity of (MEDROL, 00:00: SEE-INSTRU [place]ELA,) 4 mg 00 CTIONS. Medica l tablets follow Branch package directions methylPREDN 2023-0 Yes [id number] Take by Univers ISolone 2-11 mouth ity of (MEDROL, 00:00: SEE-INSTRU [place]ELA,) 4 mg 00 CTIONS. Medica l tablets follow Branch package directions methylPREDN 2023-0 Yes [id number] Take by Univers ISolone 2-11 mouth ity of (MEDROL, 00:00: SEE-INSTRU [place] ANABELA,) 4 mg 00 CTIONS. Medica l tablets follow Branch package directions methylPREDN 2023-0 Yes [id number] Take by [facility] ISolone 2-11 mouth ity of (MEDROL, 00:00: SEE-INSTRU [place] ANABLEA,) 4 mg 00 CTIONS. Medica l tablets follow Branch package directions methylPREDN 2023-0 Yes [id number] Take by [facility] ISolone 2-11 mouth ity of (MEDROL, 00:00: SEE-INSTRU [place] ANABELA,) 4 mg 00 CTIONS. Medica l tablets follow Branch package directions methylPREDN 2023-0 Yes [id number] Take by [facility] ISolone 2-11 mouth ity of (MEDROL, 00:00: SEE-INSTRU [place] A[place]BELA,) 4 mg 00 CTIONS. Medica l tablets follow Branch package directions methylPREDN 2023-0 Yes [id number] Take by [facility] ISolone 2-11 mouth ity of (MEDROL, 00:00: SEE-INSTRU [place] ANABELA,) 4 mg 00 CTIONS. Medica l tablets follow Branch package directions methylPREDN 3-0 Yes [id number] Take by [facility] ISolone 06-23 mouth ity of (MEDROL, 00:00: SEE-INSTRU [place] ANABELA,) 4 mg 00 CTIONS. Medica l tablets follow Branch package directions methylPREDN 3-0 Yes [id number] Take by [facility] ISolone 06-23 mouth ity of (MEDROL, 00:00: SEE-INSTRU [place] A[place]BELA,) 4 mg 00 CTIONS. Medica l tablets follow Branch package directions methylPREDN 3-0 Yes [id number] Take by [facility] ISolone 11 mouth ity of (MEDROL, 00:00: SEE-INSTRU [place]BELA,) 4 mg 00 CTIONS. Medica l tablets follow Branch package directions methylPREDN 3-0 Yes [id number] Take by [facility] ISolone 06-23 mouth ity of (MEDROL, 00:00: SEE-INSTRU [place] ANABELA,) 4 mg 00 CTIONS. Medica l tablets follow Branch package directions bromphenira 2022- No [id number] 5mL Take 5 mL [facility] mine-pseudo 06-23 by mouth 4 i ty of ephedrine-D 00:00: 05:59 (four) [place] M (BROMFED 00 :00 times Medical DM) 2-30-10 daily as Bran ch mg/5 mL needed for syrup Cold symptoms for up to 10 days. methocarbam 2022- No [id number] 750mg Take 1 [facility] oL 750 mg 06-23 [id number] tablet by it y of tablet 00:00: [...] IV ity of PF 20:15: 21:00 [place], [place] injection 00 :00 ONCE, 1 Medical 10 [...] IV ity of (BENADRYL) 19:15: 19:42 [place], [place] injection 00 :00 ONCE, 1 Medical 25 mg dose, On Branch 05/05/22 at 1315, STAT ondansetron 2021-05- No 4mg 4 mg, Slow [facility] (ZOFRAN 2- 12-24 IV [place], ity of (PF)) 19:15: 19:45 ONCE, 1 [place] injection 4 00 :00 dose, On Medi yessi mg Sat Branch 05/05/22 at 1315, [place] ketorolac 2021-05- No 30mg 30 mg, Unive rs (TORADOL) 2-24 12-24 Slow IV ity of injection 19:15: 19:44 [place], [place] 30 mg 00 :00 ONCE, 1 Medical dose, On Branch 05/05/22 at 1315, Routine butalbital- 2021-05 Yes [id number] 1{tbl} Take 1 [facility] acetaminoph 2-24 tablet by ity of en-caff 00:00: mouth [place] 50-325-40 00 every 4 Medical mg tablet (four) Branch hours as needed for Pain (scale 7-10). butalbital- 2021-05 Yes [id number] 1{tbl} Take 1 [facility] acetaminoph 2-24 tablet by ity of en-caff 00:00: mouth [place] 50-325-40 00 every 4 Medical mg tablet (four) Branch hours as needed for Pain (scale 7-10). butalbital- 2021-05 Yes [id number] 1{tbl} Take 1 [facility] acetaminoph 2-24 tablet by ity of en-caff 00:00: mouth [place] 50-325-40 00 every 4 Medical mg tablet (four) Branch hours as needed for Pain (scale 7-10). butalbital- 2021-05 Yes [id number] 1{tbl} Take 1 [facility] acetaminoph 2-24 tablet by ity of en-caff 00:00: mouth [place] 50-325-40 00 every 4 Medical mg tablet (four) Branch hours as needed for Pain (scale 7-10). butalbital- 2021-05 Yes [id number] 1{tbl} Take 1 [facility] acetaminoph 2-24 tablet by ity of en-caff 00:00: mouth [place] 50-325-40 00 every 4 Medical mg tablet (four) Branch hours as needed for Pain (scale 7-10). butalbital- 2021-05 Yes [id number] 1{tbl} Take 1 [facility] acetaminoph 2-24 tablet by ity of en-caff 00:00: mouth [place] 50-325-40 00 every 4 Medical mg tablet (four) Branch hours as needed for Pain (scale 7-10). butalbital2021-05 Yes [id number] 1{tbl} Take 1 [facility] acetaminoph 2-24 tablet by ity of en-caff 00:00: mouth [place] 50-325-40 00 every 4 Medical mg tablet (four) Branch hours as needed for Pain (scale 7-10). butalbital- 2021-05 Yes [id number] 1{tbl} Take 1 [facility] acetaminoph 2-24 tablet by ity of en-caff 00:00: mouth [place] 50-325-40 00 every 4 Medical mg tablet (four) Branch hours as needed for Pain (scale 7-10). butalbital- 2021-05 Yes [id number] 1{tbl} Take 1 [facility] acetaminoph 2-24 tablet by ity of en-caff 00:00: mouth [place] 50-325-40 00 every 4 Medical mg tablet (four) Branch hours as needed for Pain (scale 7-10). butalbital2021-05 Yes [id number] 1{tbl} Take 1 [facility] acetaminoph 2-24 tablet by ity of en-caff 00:00: mouth [place] 50-325-40 00 every 4 Medical mg tablet (four) Branch hours as needed for Pain (scale 7-10). butalbital2021-05 Yes [id number] 1{tbl} Take 1 [facility] acetaminoph 2-24 tablet by ity of en-caff 00:00: mouth [place] 50-325-40 00 every 4 Medical mg tablet (four) Branch hours as needed for Pain (scale 7-10). butalbital2021-05 Yes [id number] 1{tbl} Take 1 [facility] acetaminoph 2-24 tablet by ity of en-caff 00:00: mouth [place] 50-325-40 00 every 4 Medical mg tablet (four) Branch hours as needed for Pain (scale 7-10). butalbital2021-05 Yes [id number] 1{tbl} Take 1 [facility] acetaminoph 2-24 tablet by ity of en-caff 00:00: mouth [place] 50-325-40 00 every 4 Medical mg tablet (four) Branch hours as needed for Pain (scale 7-10). butalbital2021-05 Yes [id number] 1{tbl} Take 1 [facility] acetaminoph 2-24 tablet by ity of en-caff 00:00: mouth [place] 50-325-40 00 every 4 Medical mg tablet (four) Branch hours as needed for Pain (scale 7-10). butalbital2021-05 Yes [id number] 1{tbl} Take 1 [facility] acetaminoph 2-24 tablet by ity of en-caff 00:00: mouth [place] 50-325-40 00 every 4 Medical mg tablet (four) Branch hours as needed for Pain (scale 7-10). butalbital2021-05 Yes [id number] 1{tbl} Take 1 [facility] acetaminoph 2-24 tablet [...] 00 :00 dose, On Medica l mg [facility] Branch 04/26/22 at 0945, [place] NaCl 0.9% 2021-05 No 1000mL at 999 Uni vers (NS) bolus 215 12-15 mL/hr, ity of infusion 15:45: 15:55 1,000 mL, [place] as 1,000 mL 00 :00 IV Medical Piggyback, Branch ONCE, 1 dose, On [place] 04/26/22 at 0945, STAT ondansetron 2021-05 No 4mg 4 mg, Slow [facility] (ZOFRAN 2-15 12-15 IV [place], ity of (PF)) 14:45: 14:52 ONCE, 1 [place] injection 4 00 :00 dose, On Medi yessi mg [facility] Branch 04/26/22 at 0845, Routine cephALEXin 2021-05- No [id number] 500mg Take 1 [facility] (KEFLEX) 2-15 12-23 capsule by ity of 500 mg 00:00: 05:59 mouth in [place] capsule 00 :00 the Medical morning Branch [...] needed for Nausea and Vomiting (N/V). ondansetron 2021-1 Yes 4mg Take 1 Univ ers (ZOFRAN) [...] 4mg Take 1 Uni vers (ZOFRAN) 4 1-30 03-21 tablet by ity of mg tablet 00:00: 00:00 mouth [place] 00 :00 every 8 Medical (eight) Branch hours as needed for Nausea and Vomiting (N/V). galcanezuma 2021-05 Yes [id number] 120mg inject 120 Univers b-gnlm 1-28 mg under ity of prefilled 00:00: [place] (EMGALITY) 00 once every Med ical subcutaneou month. Branch s injection galcanezuma 2021-05 Yes [id number] 120mg inject 120 [facility] b-gnlm 1-28 mg under ity of prefilled 00:00: [place] (EMGALITY) 00 once every Med ical subcutaneou month. Branch s injection galcanezuma 2021-05 Yes [id number] 120mg inject 120 [facility] b-gnlm 1-28 mg under ity of prefilled 00:00: [place] (EMGALITY) 00 once every Med ical subcutaneou month. Branch s injection galcanezuma 2021-05 Yes [id number] 120mg inject 120 [facility] b-gnlm 1-28 mg under ity of prefilled 00:00: [place] (EMGALITY) 00 once every Med ical subcutaneou month. Branch s injection galcanezuma 2021-05 Yes [id number] 120mg inject 120 [facility] b-gnlm 1-28 mg under ity of prefilled 00:00: [place] (EMGALITY) 00 once every Med ical subcutaneou month. Branch s injection galcanezuma 2021-05 Yes [id number] 120mg inject 120 [facility] b-gnlm 1-28 mg under ity of prefilled 00:00: [place] (EMGALITY) 00 once every Med ical subcutaneou month. Branch s injection galcanezuma 2021-05 Yes [id number] 120mg inject 120 [facility] b-gnlm 1-28 mg under ity of prefilled 00:00: [place] (EMGALITY) 00 once every Med ical subcutaneou month. Branch s injection galcanezuma 2021-05 Yes [id number] 120mg inject 120 [facility] b-gnlm 1-28 mg under ity of prefilled 00:00: [place] (EMGALITY) 00 once every Med ical subcutaneou month. Branch s injection galcanezuma 2021-05 Yes [id number] 120mg inject 120 [facility] b-gnlm 1-28 mg under ity of prefilled 00:00: the [place] (EMGALITY) 00 once every Med ical subcutaneou month. Branch s injection galcanezuma 2021-05 Yes [id number] 120mg inject 120 [facility] b-gnlm 1-28 mg under ity of prefilled 00:00: [place] (EMGALITY) 00 once every Med ical subcutaneou month. Branch s injection galcanezuma 2021-05 Yes [id number] 120mg inject 120 [facility] b-gnlm 1-28 mg under ity of prefilled 00:00: the [place] (EMGALITY) 00 once every Med ical subcutaneou month. Branch s injection galcanezuma 2021-05 Yes [id number] 120mg inject 120 [facility] b-gnlm 1-28 mg under ity of prefilled 00:00: the [place] (EMGALITY) 00 once every Med ical subcutaneou month. Branch s injection galcanezuma 2021-05 Yes [id number] 120mg inject 120 [facility] b-gnlm 1-28 mg under ity of prefilled 00:00: the [place] (EMGALITY) 00 once every Med ical subcutaneou month. Branch s injection galcanezuma 2021-05 Yes [id number] 120mg inject 120 [facility] b-gnlm 1-28 mg under ity of prefilled 00:00: [place] (EMGALITY) 00 once every Med ical subcutaneou month. Branch s injection galcanezuma 2021-05 Yes [id number] 120mg inject 120 [facility] b-gnlm 1-28 mg under ity of prefilled 00:00: the [place] (EMGALITY) 00 once every Med ical subcutaneou month. Branch s injection galcanezuma 2021-05 Yes [id number] 120mg inject 120 [facility] b-gnlm 1-28 mg under ity of prefilled 00:00: the [place] (EMGALITY) 00 once every Med ical subcutaneou month. Branch s injection galcanezuma 2021-05 Yes [id number] 120mg inject 120 [facility] b-gnlm 1-28 mg under ity of prefilled 00:00: the [place] (EMGALITY) 00 once every Med ical subcutaneou month. Branch s injection galcanezuma 2021-05 Yes [id number] 120mg inject 120 [facility] b-gnlm 1-28 mg under ity of prefilled 00:00: the [place] (EMGALITY) 00 once every Med ical subcutaneou month. Branch s injection galcanezuma 2021-05 Yes [id number] 120mg inject 120 [facility] b-gnlm 1-28 mg under ity of prefilled 00:00: [place] (EMGALITY) 00 once every Med ical subcutaneou month. Branch s injection galcanezuma 2021-05 Yes [id number] 120mg inject 120 [facility] b-gnlm 1-28 mg under ity of prefilled 00:00: the [place] (EMGALITY) 00 once every Med ical subcutaneou month. Branch s injection galcanezuma 2021-05 Yes [id number] 120mg inject 120 [facility] b-gnlm 1-28 mg under ity of prefilled 00:00: the [place] (EMGALITY) 00 once every Med ical subcutaneou month. Branch s injection galcanezuma 2021-05 Yes [id number] 120mg inject 120 [facility] b-gnlm 1-28 mg under ity of prefilled 00:00: the [place] (EMGALITY) 00 once every Med ical subcutaneou month. Branch s injection galcanezuma 2021-05 Yes [id number] 120mg inject 120 [facility] b-gnlm 1-28 mg under ity of prefilled 00:00: the [place] (EMGALITY) 00 once every Med ical subcutaneou month. Branch s injection galcanezuma 2021-05 Yes [id number] 120mg inject 120 [facility] b-gnlm 1-28 mg under ity of prefilled 00:00: the [place] (EMGALITY) 00 once every Med ical subcutaneou month. Branch s injection galcanezuma 2021-05 Yes [id number] 120mg inject 120 [facility] b-gnlm 1-28 mg under ity of prefilled 00:00: the [place] (EMGALITY) 00 once every Med ical subcutaneou month. Branch s injection galcanezuma 2021-05 Yes [id number] 120mg inject 120 [facility] b-gnlm 1-28 mg under ity of prefilled 00:00: the [place] (EMGALITY) 00 once every Med ical subcutaneou month. Branch s injection galcanezuma 2021-05 Yes [id number] 120mg inject 120 [facility] b-gnlm 1-28 mg under ity of prefilled 00:00: the [place] (EMGALITY) 00 once every Med ical subcutaneou month. Branch s injection galcanezuma 2021-05 Yes [id number] 120mg inject 120 [facility] b-gnlm 1-28 mg under ity of prefilled 00:00: the [place] (EMGALITY) 00 once every Med ical subcutaneou month. Branch s injection galcanezuma 2021-05 Yes [id number] 120mg inject 120 [facility] b-gnlm 1-28 mg under ity of prefilled 00:00: [place] (EMGALITY) 00 once every Med ical subcutaneou month. Branch s injection methocarbam 2021-05 Yes 1000mg 1,000 mg, Univers oL -27 Intravenou ity of (ROBAXIN) 04:00: s, Q8H, [place] injection 00 First dose Medi yessi 1,000 mg on Sat Branch 04/07/22 at 2200, Until Discontinu ed, Routine ketorolac 2022-1 2022- No 30mg 30 mg, Unive rs [...] 13 :00 Medical Branch rizatriptan 2021-05 Yes [id number] 10mg Take 1 [facility] 10 mg 1-12 tablet by ity of tablet 00:00: mouth as [place] 00 needed for Medical Migraine. Branch May repeat in 2 hours if needed Butalbital- 2021-05 Yes [id number] 1{capsu Take 1 [facility] Acetaminoph 1-12 le} [...] daily. Indication s: headache rizatriptan 2021-05 Yes [id number] 10mg Take 1 [facility] 10 mg 1-12 tablet by ity of tablet 00:00: mouth as [place] 00 needed for Medical Migraine. Branch May repeat in 2 hours if needed Butalbital- 2021-05 Yes [id number] 1{capsu Take 1 [facility] Acetaminoph 1-12 le} [...] daily. Indication s: headache rizatriptan 2021-05 Yes [id number] 10mg Take 1 [facility] 10 mg 1-12 tablet by ity of tablet 00:00: mouth as [place] 00 needed for Medical Migraine. Branch May repeat in 2 hours if needed Butalbital- 2021-05 Yes [id number] 1{capsu Take 1 [facility] Acetaminoph 1-12 le} [...] daily. Indication s: headache rizatriptan 2021-05 Yes [id number] 10mg Take 1 [facility] 10 mg 1-12 tablet by ity of tablet 00:00: mouth as [place] 00 needed for Medical Migraine. Branch May repeat in 2 hours if needed Butalbital- 2021-05 Yes [id number] 1{capsu Take 1 [facility] Acetaminoph 1-12 le} capsule by it y of en-Caff 00:00: mouth [place] (FIORICET) 00 every 6 Medica l 50-300-40 (six) Branch mg per hours as capsule needed for Other (headache) . rizatriptan 2021-05 Yes [id number] 10mg Take 1 Univers 10 mg 1-12 tablet by ity of tablet 00:00: mouth as [place] 00 needed for Medical Migraine. Branch May repeat in 2 hours if needed Butalbital- 2021-05 Yes [id number] 1{capsu Take 1 [facility] Acetaminoph 1-12 le} capsule by it y of en-Caff 00:00: mouth [place] (FIORICET) 00 every 6 Medica l 50-300-40 (six) Branch mg per hours as capsule needed for Other (headache) . rizatriptan 2021-05 Yes [id number] 10mg Take 1 Univers 10 mg 1-12 tablet by ity of tablet 00:00: mouth as [place] 00 needed for Medical Migraine. Branch May repeat in 2 hours if needed Butalbital- 2021-05 Yes [id number] 1{capsu Take 1 [facility] Acetaminoph 1-12 le} capsule by it y of en-Caff 00:00: mouth [place] (FIORICET) 00 every 6 Medica l 50-300-40 (six) Branch mg per hours as capsule needed for Other (headache) . rizatriptan 2021-05 Yes [id number] 10mg Take 1 Univers 10 mg 1-12 tablet by ity of tablet 00:00: mouth as [place] 00 needed for Medical Migraine. Branch May repeat in 2 hours if needed Butalbital- 2021-05 Yes [id number] 1{capsu Take 1 [facility] Acetaminoph 1-12 le} capsule by it y of en-Caff 00:00: mouth [place] (FIORICET) 00 every 6 Medica l 50-300-40 (six) Branch mg per hours as capsule needed for Other (headache) . rizatriptan 2021-05 Yes [id number] 10mg Take 1 Univers 10 mg 1-12 tablet by ity of tablet 00:00: mouth as [place] 00 needed for Medical Migraine. Branch May repeat in 2 hours if needed Butalbital- 2021-05 Yes [id number] 1{capsu Take 1 [facility] Acetaminoph 1-12 le} capsule by it y of en-Caff 00:00: mouth [place] (FIORICET) 00 every 6 Medica l 50-300-40 (six) Branch mg per hours as capsule needed for Other (headache) . rizatriptan 2021-05 Yes [id number] 10mg Take 1 Univers 10 mg 1-12 tablet by ity of tablet 00:00: mouth as [place] 00 needed for Medical Migraine. Branch May repeat in 2 hours if needed Butalbital- 2021-05 Yes [id number] 1{capsu Take 1 [facility] Acetaminoph 1-12 le} capsule by it y of en-Caff 00:00: mouth [place] (FIORICET) 00 every 6 Medica l 50-300-40 (six) Branch mg per hours as capsule needed for Other (headache) . rizatriptan 2021-05 Yes [id number] 10mg Take 1 Univers 10 mg 1-12 tablet by ity of tablet 00:00: mouth as [place] 00 needed for Medical Migraine. Branch May repeat in 2 hours if needed Butalbital- 2021-05 Yes [id number] 1{capsu Take 1 [facility] Acetaminoph 1-12 le} capsule by it y of en-Caff 00:00: mouth [place] (FIORICET) 00 every 6 Medica l 50-300-40 (six) Branch mg per hours as capsule needed for Other (headache) . rizatriptan 2021-05 Yes [id number] 10mg Take 1 Univers 10 mg 1-12 tablet by ity of tablet 00:00: mouth as [place] 00 needed for Medical Migraine. Branch May repeat in 2 hours if needed Butalbital- 2021-05 Yes [id number] 1{capsu Take 1 [facility] Acetaminoph 1-12 le} capsule by it y of en-Caff 00:00: mouth [place] (FIORICET) 00 every 6 Medica l 50-300-40 (six) Branch mg per hours as capsule needed for Other (headache) . rizatriptan 2021-05 Yes [id number] 10mg Take 1 Univers 10 mg 1-12 tablet by ity of tablet 00:00: mouth as [place] 00 needed for Medical Migraine. Branch May repeat in 2 hours if needed Butalbital- 2021-05 Yes [id number] 1{capsu Take 1 Univers Acetaminoph 1-12 le} capsule by it y of en-Caff 00:00: mouth [place] (FIORICET) 00 every 6 Medica l 50-300-40 (six) Branch mg per hours as capsule needed for Other (headache) . rizatriptan 2021-05 Yes [id number] 10mg Take 1 Univers 10 mg 1-12 tablet by ity of tablet 00:00: mouth as [place] 00 needed for Medical Migraine. Branch May repeat in 2 hours if needed Butalbital- 2021-05 Yes [id number] 1{capsu Take 1 Univers Acetaminoph 1-12 le} capsule by it y of en-Caff 00:00: mouth [place] (FIORICET) 00 every 6 Medica l 50-300-40 (six) Branch mg per hours as capsule needed for Other (headache) . rizatriptan 2021-05 Yes [id number] 10mg Take 1 [facility] 10 mg 1-12 tablet by ity of tablet 00:00: mouth as [place] 00 needed for Medical Migraine. Branch May repeat in 2 hours if needed Butalbital- 2021-05 Yes [id number] 1{capsu Take 1 [facility] Acetaminoph 1-12 le} capsule by it y of en-Caff 00:00: mouth [place] (FIORICET) 00 every 6 Medica l 50-300-40 (six) Branch mg per hours as capsule needed for Other (headache) . rizatriptan 2021-05 Yes [id number] 10mg Take 1 [facility] 10 mg 1-12 tablet by ity of tablet 00:00: mouth as [place] 00 needed for Medical Migraine. Branch May repeat in 2 hours if needed Butalbital- 2021-05 Yes [id number] 1{capsu Take 1 Univers Acetaminoph 1-12 le} capsule by it y of en-Caff 00:00: mouth [place] (FIORICET) 00 every 6 Medica l 50-300-40 (six) Branch mg per hours as capsule needed for Other (headache) . rizatriptan 2021-05 Yes [id number] 10mg Take 1 [facility] 10 mg 1-12 tablet by ity of tablet 00:00: mouth as [place] 00 needed for Medical Migraine. Branch May repeat in 2 hours if needed Butalbital- 2021-05 Yes [id number] 1{capsu Take 1 [facility] Acetaminoph 1-12 le} capsule by it y of en-Caff 00:00: mouth [place] (FIORICET) 00 every 6 Medica l 50-300-40 (six) Branch mg per hours as capsule needed for Other (headache) . rizatriptan 2021-05 Yes [id number] 10mg Take 1 Univers 10 mg 1-12 tablet by ity of tablet 00:00: mouth as [place] 00 needed for Medical Migraine. Branch May repeat in 2 hours if needed Butalbital- 2021-05 Yes [id number] 1{capsu Take 1 [facility] Acetaminoph 1-12 le} capsule by it y of en-Caff 00:00: mouth [place] (FIORICET) 00 every 6 Medica l 50-300-40 (six) Branch mg per hours as capsule needed for Other (headache) . rizatriptan 2021-05 Yes [id number] 10mg Take 1 [facility] 10 mg 1-12 tablet by ity of tablet 00:00: mouth as [place] 00 needed for Medical Migraine. Branch May repeat in 2 hours if needed Butalbital- 2021-05 Yes [id number] 1{capsu Take 1 Univers Acetaminoph 1-12 le} capsule by it y of en-Caff 00:00: mouth [place] (FIORICET) 00 every 6 Medica l 50-300-40 (six) Branch mg per hours as capsule needed for Other (headache) . rizatriptan 2021-05 Yes [id number] 10mg Take 1 [facility] 10 mg 1-12 tablet by ity of tablet 00:00: mouth as [place] 00 needed for Medical Migraine. Branch May repeat in 2 hours if needed Butalbital- 2021-05 Yes [id number] 1{capsu Take 1 [facility] Acetaminoph 1-12 le} capsule by it y of en-Caff 00:00: mouth [place] (FIORICET) 00 every 6 Medica l 50-300-40 (six) Branch mg per hours as capsule needed for Other (headache) . rizatriptan 2021-05 Yes [id number] 10mg Take 1 [facility] 10 mg 1-12 tablet by ity of tablet 00:00: mouth as [place] 00 needed for Medical Migraine. Branch May repeat in 2 hours if needed Butalbital- 2021-05 Yes [id number] 1{capsu Take 1 [facility] Acetaminoph 1-12 le} capsule by it y of en-Caff 00:00: mouth [place] (FIORICET) 00 every 6 Medica l 50-300-40 (six) Branch mg per hours as capsule needed for Other (headache) . rizatriptan 2021-05 Yes [id number] 10mg Take 1 [facility] 10 mg 1-12 tablet by ity of tablet 00:00: mouth as [place] 00 needed for Medical Migraine. Branch May repeat in 2 hours if needed Butalbital- 2021-05 Yes [id number] 1{capsu Take 1 [facility] Acetaminoph 1-12 le} capsule by it y of en-Caff 00:00: mouth [place] (FIORICET) 00 every 6 Medica l 50-300-40 (six) Branch mg per hours as capsule needed for Other (headache) . rizatriptan 2021-05 Yes [id number] 10mg Take 1 [facility] 10 mg 1-12 tablet by ity of tablet 00:00: mouth as [place] 00 needed for Medical Migraine. Branch May repeat in 2 hours if needed Butalbital- 2021-05 Yes [id number] 1{capsu Take 1 [facility] Acetaminoph 1-12 le} capsule by it y of en-Caff 00:00: mouth [place] (FIORICET) 00 every 6 Medica l 50-300-40 (six) Branch mg per hours as capsule needed for Other (headache) . rizatriptan 2021-05 Yes [id number] 10mg Take 1 [facility] 10 mg 1-12 tablet by ity of tablet 00:00: mouth as [place] 00 needed for Medical Migraine. Branch May repeat in 2 hours if needed Butalbital- 2021-05 Yes [id number] 1{capsu Take 1 [facility] Acetaminoph 1-12 le} capsule by it y of en-Caff 00:00: mouth [place] (FIORICET) 00 every 6 Medica l 50-300-40 (six) Branch mg per hours as capsule needed for Other (headache) . rizatriptan 2021-05 Yes [id number] 10mg Take 1 [facility] 10 mg 1-12 tablet by ity of tablet 00:00: mouth as [place] 00 needed for Medical Migraine. Branch May repeat in 2 hours if needed Butalbital- 2021-05 Yes [id number] 1{capsu Take 1 [facility] Acetaminoph 1-12 le} capsule by it y of en-Caff 00:00: mouth [place] (FIORICET) 00 every 6 Medica l 50-300-40 (six) Branch mg per hours as capsule needed for Other (headache) . rizatriptan 2021-05 Yes [id number] 10mg Take 1 [facility] 10 mg 1-12 tablet by ity of tablet 00:00: mouth as [place] 00 needed for Medical Migraine. Branch May repeat in 2 hours if needed Butalbital- 2021-05 Yes [id number] 1{capsu Take 1 [facility] Acetaminoph 1-12 le} capsule by it y of en-Caff 00:00: mouth [place] (FIORICET) 00 every 6 Medica l 50-300-40 (six) Branch mg per hours as capsule needed for Other (headache) . rizatriptan 2021-05 Yes [id number] 10mg Take 1 [facility] 10 mg 1-12 tablet by ity of tablet 00:00: mouth as [place] 00 needed for Medical Migraine. Branch May repeat in 2 hours if needed Butalbital- 2021-05 Yes [id number] 1{capsu Take 1 [facility] Acetaminoph 1-12 le} capsule by it y of en-Caff 00:00: mouth [place] (FIORICET) 00 every 6 Medica l 50-300-40 (six) Branch mg per hours as capsule needed for Other (headache) . rizatriptan 2021-05 Yes [id number] 10mg Take 1 [facility] 10 mg 1-12 tablet by ity of tablet 00:00: mouth as [place] 00 needed for Medical Migraine. Branch May repeat in 2 hours if needed Butalbital- 2021-05 Yes [id number] 1{capsu Take 1 [facility] Acetaminoph 1-12 le} capsule by it y of en-Caff 00:00: mouth [place] (FIORICET) 00 every 6 Medica l 50-300-40 (six) Branch mg per hours as capsule needed for Other (headache) . rizatriptan 2021-05 Yes [id number] 10mg Take 1 [facility] 10 mg 1-12 tablet by ity of tablet 00:00: mouth as [place] 00 needed for Medical Migraine. Branch May repeat in 2 hours if needed Butalbital- 2021-05 Yes [id number] 1{capsu Take 1 [facility] Acetaminoph 1-12 le} capsule by it y of en-Caff 00:00: mouth [place] (FIORICET) 00 every 6 Medica l 50-300-40 (six) Branch mg per hours as capsule needed for Other (headache) . rizatriptan 2021-05 Yes [id number] 10mg Take 1 [facility] 10 mg 1-12 tablet by ity of tablet 00:00: mouth as [place] 00 needed for Medical Migraine. Branch May repeat in 2 hours if needed Butalbital- 2021-05 Yes [id number] 1{capsu Take 1 Univers Acetaminoph 1-12 le} capsule by it y of en-Caff 00:00: mouth [place] (FIORICET) 00 every 6 Medica l 50-300-40 (six) Branch mg per hours as capsule needed for Other (headache) . rizatriptan 2021-05 Yes [id number] 10mg Take 1 [facility] 10 mg 1-12 tablet by ity of tablet 00:00: mouth as [place] 00 needed for Medical Migraine. Branch May repeat in 2 hours if needed Butalbital- 2021-05 Yes [id number] 1{capsu Take 1 [facility] Acetaminoph 1-12 le} capsule by it y of en-Caff 00:00: mouth [place] (FIORICET) 00 every 6 Medica l 50-300-40 (six) Branch mg per hours as capsule needed for Other (headache) . rizatriptan 2021-05 Yes [id number] 10mg Take 1 [facility] 10 mg 1-12 tablet by ity of tablet 00:00: mouth as [place] 00 needed for Medical Migraine. Branch May repeat in 2 hours if needed Butalbital- 2021-05 Yes [id number] 1{capsu Take 1 [facility] Acetaminoph 1-12 le} capsule by it y of en-Caff 00:00: mouth [place] (FIORICET) 00 every 6 Medica l 50-300-40 (six) Branch mg per hours as capsule needed for Other (headache) . rizatriptan 2021-05 Yes [id number] 10mg Take 1 [facility] 10 mg 1-12 tablet by ity of tablet 00:00: mouth as [place] 00 needed for Medical Migraine. Branch May repeat in 2 hours if needed Butalbital- 2021-05 Yes [id number] 1{capsu Take 1 [facility] Acetaminoph 1-12 le} capsule by it y of en-Caff 00:00: mouth [place] (FIORICET) 00 every 6 Medica l 50-300-40 (six) Branch mg per hours as capsule needed for Other (headache) . rizatriptan 2021-05 Yes [id number] 10mg Take 1 [facility] 10 mg 1-12 tablet by ity of tablet 00:00: mouth as [place] 00 needed for Medical Migraine. Branch May repeat in 2 hours if needed Butalbital- 2021-05 Yes [id number] 1{capsu Take 1 [facility] Acetaminoph 1-12 le} [...] ONCE, 1 Medical 50 mcg dose, On [facility] 03/15/22 at 1030, Routine proMETHazin 2021-05 No 25mg 25 mg, Uni vers e 05-15 Oral, ity of (PHENERGAN) 14:45: 14:55 ONCE, 1 [place] tablet 25 00 :00 dose, On Medica l mg [facility] 03/15/22 at 0945, [place] FENTanyl PF 2021-05 No 50ug 50 mcg, Un sushant (SUBLIMAZE 05-15 Slow IV ity o f (PF)) 14:45: 13:58 Push, [place] injection 00 :00 ONCE, 1 Medical 50 mcg dose, On Branch [facility] 03/15/22 at 0945, Routine ondansetron 2021-05 No 4mg 4 mg, Slow Univers (ZOFRAN 1-03 11-03 IV Push, ity of (PF)) 14:00: 13:58 ONCE, 1 [place] injection 4 00 :00 dose, On Medi yessi mg [facility] 03/15/22 at 0900, [place] ondansetron 2021-05 Yes [id number] 4mg Take 1 [facility] 4 mg 1-03 tablet by ity of disintegrat 00:00: mouth [place] ing tablet 00 every 8 Medica l (eight) Branch hours as needed for Nausea and Vomiting (N/V). ketorolac 2021-05 Yes [id number] 10mg Take 1 U nivers 10 mg 1-03 tablet by ity of tablet 00:00: mouth [place] 00 every 6 Medical (six) Branch hours as needed for Pain (scale 7-10). proMETHazin 2021-05 Yes [id number] 25mg Take 1 Univers e 25 mg 1-03 tablet by ity of tablet 00:00: mouth [place] 00 every 6 Medical (six) Branch hours as needed for N/V unresponsi ve to Ondansetro n. ondansetron 2021-05 Yes [id number] 4mg Take 1 [facility] 4 mg 1-03 tablet by ity of disintegrat 00:00: mouth [place] ing tablet 00 every 8 Medica l (eight) Branch hours as needed for Nausea and Vomiting (N/V). ketorolac 2021-05 Yes [id number] 10mg Take 1 U nivers 10 mg 1-03 tablet by ity of tablet 00:00: mouth [place] 00 every 6 Medical (six) Branch hours as needed for Pain (scale 7-10). proMETHazin 2021-05 Yes [id number] 25mg Take 1 Univers e 25 mg 1-03 tablet by ity of tablet 00:00: mouth [place] 00 every 6 Medical (six) Branch hours as needed for N/V unresponsi ve to Ondansetro n. carvediloL 2021-05 Yes [id number] 25mg Take 1 U nivers 25 mg 1-03 tablet by ity of tablet 00:00: mouth in [place] 00 the Medical morning Branch and 1 tablet in the evening. Take with meals. ondansetron 2021-05 Yes [id number] 4mg Take 1 [facility] 4 mg 1-03 tablet by ity of disintegrat 00:00: mouth [place] ing tablet 00 every 8 Medica l (eight) Branch hours as needed for Nausea and Vomiting (N/V). ketorolac 2021-05 Yes [id number] 10mg Take 1 U nivers 10 mg 1-03 tablet by ity of tablet 00:00: mouth [place] 00 every 6 Medical (six) Branch hours as needed for Pain (scale 7-10). proMETHazin 2021-05 Yes [id number] 25mg Take 1 Univers e 25 mg 1-03 tablet by ity of tablet 00:00: mouth [place] 00 every 6 Medical (six) Branch hours as needed for N/V unresponsi ve to Ondansetro n. carvediloL 2021-05 Yes [id number] 25mg Take 1 U nivers 25 mg 1-03 tablet by ity of tablet 00:00: mouth in [place] 00 the Medical morning Branch and 1 tablet in the evening. Take with meals. ondansetron 2021-05 Yes [id number] 4mg Take 1 [facility] 4 mg 1-03 tablet by ity of disintegrat 00:00: mouth [place] ing tablet 00 every 8 Medica l (eight) Branch hours as needed for Nausea and Vomiting (N/V). ketorolac 2021-05 Yes [id number] 10mg Take 1 U nivers 10 mg 1-03 tablet by ity of tablet 00:00: mouth [place] 00 every 6 Medical (six) Branch hours as needed for Pain (scale 7-10). proMETHazin 2021-05 Yes [id number] 25mg Take 1 Univers e 25 mg 1-03 tablet by ity of tablet 00:00: mouth [place] 00 every 6 Medical (six) Branch hours as needed for N/V unresponsi ve to Ondansetro n. carvediloL 2021-05 Yes [id number] 25mg Take 1 U nivers 25 mg 1-03 tablet by ity of tablet 00:00: mouth in [place] 00 the Medical morning Branch and 1 tablet in the evening. Take with meals. ondansetron 2021-05 Yes [id number] 4mg Take 1 [facility] 4 mg 1-03 tablet by ity of disintegrat 00:00: mouth [place] ing tablet 00 every 8 Medica l (eight) Branch hours as needed for Nausea and Vomiting (N/V). ketorolac 2021-05 Yes [id number] 10mg Take 1 U nivers 10 mg 1-03 tablet by ity of tablet 00:00: mouth [place] 00 every 6 Medical (six) Branch hours as needed for Pain (scale 7-10). proMETHazin 2021-05 Yes [id number] 25mg Take 1 Univers e 25 mg 1-03 tablet by ity of tablet 00:00: mouth [place] 00 every 6 Medical (six) Branch hours as needed for N/V unresponsi ve to Ondansetro n. carvediloL 2021-05 Yes [id number] 25mg Take 1 U nivers 25 mg 1-03 tablet by ity of tablet 00:00: mouth in [place] 00 the Medical morning Branch and 1 tablet in the evening. Take with meals. ondansetron 2021-05 Yes [id number] 4mg Take 1 Univers 4 mg 1-03 tablet by ity of disintegrat 00:00: mouth [place] ing tablet 00 every 8 Medica l (eight) Branch hours as needed for Nausea and Vomiting (N/V). ketorolac 2021-05 Yes [id number] 10mg Take 1 U nivers 10 mg 1-03 tablet by ity of tablet 00:00: mouth [place] 00 every 6 Medical (six) Branch hours as needed for Pain (scale 7-10). proMETHazin 2021-05 Yes [id number] 25mg Take 1 Univers e 25 mg 1-03 tablet by ity of tablet 00:00: mouth [place] 00 every 6 Medical (six) Branch hours as needed for N/V unresponsi ve to Ondansetro n. carvediloL 2021-05 Yes [id number] 25mg Take 1 U nivers 25 mg 1-03 tablet by ity of tablet 00:00: mouth in [place] 00 the Medical morning Branch and 1 tablet in the evening. Take with meals. ondansetron 2021-05 Yes [id number] 4mg Take 1 [facility] 4 mg 1-03 tablet by ity of disintegrat 00:00: mouth [place] ing tablet 00 every 8 Medica l (eight) Branch hours as needed for Nausea and Vomiting (N/V). ketorolac 2021-05 Yes [id number] 10mg Take 1 U nivers 10 mg 1-03 tablet by ity of tablet 00:00: mouth [place] 00 every 6 Medical (six) Branch hours as needed for Pain (scale 7-10). proMETHazin 2021-05 Yes [id number] 25mg Take 1 Univers e 25 mg 1-03 tablet by ity of tablet 00:00: mouth [place] 00 every 6 Medical (six) Branch hours as needed for N/V unresponsi ve to Ondansetro n. carvediloL 2021-05 Yes [id number] 25mg Take 1 U nivers 25 mg 1-03 tablet by ity of tablet 00:00: mouth in [place] 00 the Medical morning Branch and 1 tablet in the evening. Take with meals. ondansetron 2021-05 Yes [id number] 4mg Take 1 [facility] 4 mg 1-03 tablet by ity of disintegrat 00:00: mouth [place] ing tablet 00 every 8 Medica l (eight) Branch hours as needed for Nausea and Vomiting (N/V). ketorolac 2021-05 Yes [id number] 10mg Take 1 U nivers 10 mg 1-03 tablet by ity of tablet 00:00: mouth [place] 00 every 6 Medical (six) Branch hours as needed for Pain (scale 7-10). proMETHazin 2021-05 Yes [id number] 25mg Take 1 Univers e 25 mg 1-03 tablet by ity of tablet 00:00: mouth [place] 00 every 6 Medical (six) Branch hours as needed for N/V unresponsi ve to Ondansetro n. carvediloL 2021-05 Yes [id number] 25mg Take 1 U nivers 25 mg 1-03 tablet by ity of tablet 00:00: mouth in [place] 00 the Medical morning Branch and 1 tablet in the evening. Take with meals. ondansetron 2021-05 Yes [id number] 4mg Take 1 [facility] 4 mg 1-03 tablet by ity of disintegrat 00:00: mouth [place] ing tablet 00 every 8 Medica l (eight) Branch hours as needed for Nausea and Vomiting (N/V). ketorolac 2021-05 Yes [id number] 10mg Take 1 U nivers 10 mg 1-03 tablet by ity of tablet 00:00: mouth [place] 00 every 6 Medical (six) Branch hours as needed for Pain (scale 7-10). proMETHazin 2021-05 Yes [id number] 25mg Take 1 Univers e 25 mg 1-03 tablet by ity of tablet 00:00: mouth [place] 00 every 6 Medical (six) Branch hours as needed for N/V unresponsi ve to Ondansetro n. carvediloL 2021-05 Yes [id number] 25mg Take 1 U nivers 25 mg 1-03 tablet by ity of tablet 00:00: mouth in [place] 00 the Medical morning Branch and 1 tablet in the evening. Take with meals. ondansetron 2021-05 Yes [id number] 4mg Take 1 [facility] 4 mg 1-03 tablet by ity of disintegrat 00:00: mouth [place] ing tablet 00 every 8 Medica l (eight) Branch hours as needed for Nausea and Vomiting (N/V). ketorolac 2021-05 Yes [id number] 10mg Take 1 U nivers 10 mg 1-03 tablet by ity of tablet 00:00: mouth [place] 00 every 6 Medical (six) Branch hours as needed for Pain (scale 7-10). proMETHazin 2021-05 Yes [id number] 25mg Take 1 Univers e 25 mg 1-03 tablet by ity of tablet 00:00: mouth [place] 00 every 6 Medical (six) Branch hours as needed for N/V unresponsi ve to Ondansetro n. carvediloL 2021-05 Yes [id number] 25mg Take 1 U nivers 25 mg 1-03 tablet by ity of tablet 00:00: mouth in [place] 00 the [facility] morning Branch and 1 tablet in the evening. Take with meals. carvediloL 2021-05 Yes [id number] 25mg Take 1 U nivers 25 mg 1-03 tablet by ity of tablet 00:00: mouth in [place] 00 the [facility] morning Branch and 1 tablet in the evening. Take with meals. carvediloL 2021-05 Yes [id number] 25mg Take 1 U nivers 25 mg 1-03 tablet by ity of tablet 00:00: mouth in [place] 00 the [facility] morning Branch and 1 tablet in the evening. Take with meals. carvediloL 2021-05 Yes [id number] 25mg Take 1 U nivers 25 mg 1-03 tablet by ity of tablet 00:00: mouth in [place] 00 the [facility] morning Branch and 1 tablet in the evening. Take with meals. carvediloL 2021-05 Yes [id number] 25mg Take 1 U nivers 25 mg 1-03 tablet by ity of tablet 00:00: mouth in [place] 00 the Medical morning Branch and 1 tablet in the evening. Take with meals. carvediloL 2021-05 Yes [id number] 25mg Take 1 U nivers 25 mg 1-03 tablet by ity of tablet 00:00: mouth in [place] 00 the Medical morning Branch and 1 tablet in the evening. Take with meals. carvediloL 2021-05 Yes [id number] 25mg Take 1 U nivers 25 mg 1-03 tablet by ity of tablet 00:00: mouth in [place] [address] the Medical morning Branch and 1 tablet in the evening. Take with meals. carvediloL 2021-05 Yes [id number] 25mg Take 1 U nivers 25 mg 1-03 tablet by ity of tablet 00:00: mouth in [place] [address] the Medical morning Branch and 1 tablet in the evening. Take with meals. carvediloL 2021-05 Yes [id number] 25mg Take 1 U nivers 25 mg 1-03 tablet by ity of tablet 00:00: mouth in [place] [address] the Medical morning [place] and 1 tablet in the evening. Take with meals. carvediloL 2021-05 Yes [id number] 25mg Take 1 U nivers 25 mg 1-03 tablet by ity of tablet 00:00: mouth in [place] [address] the Medical morning [place] and 1 tablet in the evening. Take with meals. carvediloL 2021-05 Yes [id number] 25mg Take 1 U nivers 25 mg 1-03 tablet by ity of tablet 00:00: mouth in [place] [address] the Medical morning [place] and 1 tablet in the evening. Take with meals. carvediloL 2021-05 Yes [id number] 25mg Take 1 U nivers 25 mg 1-03 tablet by ity of tablet 00:00: mouth in [place] [address] the Medical morning Branch and 1 tablet in the evening. Take with meals. carvediloL 2021-05 Yes [id number] 25mg Take 1 U nivers 25 mg 1-03 tablet by ity of tablet 00:00: mouth in [place] [address] the Medical morning Branch and 1 tablet in the evening. Take with meals. carvediloL 2021-05 Yes [id number] 25mg Take 1 U nivers 25 mg 1-03 tablet by ity of tablet 00:00: mouth in [place] [address] the Medical morning [place] and 1 tablet in the evening. Take with meals. carvediloL 2021-05 Yes [id number] 25mg Take 1 U nivers 25 mg 1-03 tablet by ity of tablet 00:00: mouth in [place] 00 the Medical morning Branch and 1 tablet in the evening. Take with meals. carvediloL 2021-05 Yes [id number] 25mg Take 1 U nivers 25 mg 1-03 tablet by ity of tablet 00:00: mouth in [place] 00 the Medical morning Branch and 1 tablet in the evening. Take with meals. carvediloL 2021-05 Yes [id number] 25mg Take 1 U nivers 25 mg 1-03 tablet by ity of tablet 00:00: mouth in [place] 00 the Medical morning Branch and 1 tablet in the evening. Take with meals. carvediloL 2021-05 Yes [id number] 25mg Take 1 U nivers 25 mg 1-03 tablet by ity of tablet 00:00: mouth in [place] [address] the Medical morning Branch and 1 tablet in the evening. Take with meals. carvediloL 2021-05 Yes [id number] 25mg Take 1 U nivers 25 mg 1-03 tablet by ity of tablet 00:00: mouth in [place] [address] the Medical morning [place] and 1 tablet in the evening. Take with meals. carvediloL 2021-05 Yes [id number] 25mg Take 1 U nivers 25 mg 1-03 tablet by ity of tablet 00:00: mouth in [place] [address] the Medical morning Branch and 1 tablet in the evening. Take with meals. carvediloL 2021-05 Yes [id number] 25mg Take 1 U nivers 25 mg 1-03 tablet by ity of tablet 00:00: mouth in [place] [address] the Medical morning Branch and 1 tablet in the evening. Take with meals. carvediloL 2021-05 Yes [id number] 25mg Take 1 U nivers 25 mg 1-03 tablet by ity of tablet 00:00: mouth in [place] 00 the Medical morning Branch and 1 tablet in the evening. Take with meals. carvediloL 2021-05- No [id number] 25mg Take 1 [facility] 25 mg 1-03 04-26 tablet by ity of tablet 00:00: 00:00 mouth in [place] 00 :00 the Medical morning Branch and 1 tablet in the evening. Take with meals. carvediloL 2021-05- No [id number] 25mg Take 1 [facility] 25 mg 1-03 04-26 tablet by ity of tablet 00:00: 00:00 mouth in [place] 00 :00 the Medical morning Branch and 1 tablet in the evening. Take with meals. ondansetron 2021-05- No [id number] 4mg Take 1 [facility] 4 mg 05-15 tablet by ity of disintegrat 00:00: 00:00 [place] tablet 00 :00 every 8 Medica l (eight) Branch hours as needed for Nausea and Vomiting (N/V). ketorolac 2021-05- No [id number] 10mg Take 1 [facility] 10 mg 05-15 tablet by ity of tablet 00:00: 00:00 mouth [place] 00 :00 every 6 Medical (six) Branch hours as needed for Pain (scale 7-10). proMETHazin 2021-05- No [id number] 25mg Take 1 Univers e 25 mg 05-15 tablet by ity of tablet 00:00: 00:00 mouth [place] 00 :00 every 6 Medical (six) Branch hours as needed for N/V unresponsi ve to Ondansetro n. cephALEXin 2021-05- No [id number] 500mg Take 1 [facility] 500 mg 05-15 capsule by ity of capsule 00:00: 05:59 mouth 4 [place] 00 :00 (four) Medical times Branch daily for 3 days. cephALEXin 2021-05- No [id number] 500mg Take 1 [facility] 500 mg 05-15 capsule by ity of capsule 00:00: 05:59 mouth 4 [place] 00 :00 (four) Medical times Branch daily for 3 days. cephALEXin 2021-05- No [id number] 500mg Take 1 [facility] 500 mg 05-15 capsule by ity of capsule 00:00: 05:59 mouth 4 [place] 00 :00 (four) Medical times Branch daily for 3 days. predniSONE 2021-05- No [id number] 20mg Take 1 [facility] 20 mg 0-31 03-15 tablet by ity of tablet 00:00: 04:59 mouth in [place] 00 :00 the Medical morning Branch for 2 days. methocarbam 2021-05- No 500mg 500 mg, U nivers oL 0-30 10-30 Oral, ity of (ROBAXIN) 16:45: 17:08 ONCE, 1 [place] 500 00 :00 dose, On Medic al mg [facility] [place] 03/11/22 at 1200, [place] dexamethaso 2021-05- No 10mg 10 mg, Uni vers ne sod phos 0-30 10-30 Slow IV ity of PF 16:00: 16:00 Push, [place] injection 00 :00 ONCE, 1 Medical 10 mg dose, On [facility] 03/11/22 at 1100, 1 mL diphenhydrA 2021-05- No 25mg 25 mg, Uni vers MINE 0-30 10-30 Slow IV ity of (BENADRYL) 15:46: 16:00 Push, [place] injection 00 :00 ONCE, 1 Medical 25 mg dose, On [facility] 03/11/22 at 1100, STAT NaCl 0.9% 2021-05 No 1000mL at 999 Uni vers (NS) IV 0-30 10-30 mL/hr, ity of infusion 15:45: 16:04 [place] 1,000 mL 00 :00 s, ONCE, 1 Medic al dose, On [facility] 03/11/22 at 1045, Routine butalbital- 2021-05- [...] 00 :00 ONCE, 1 Medical dose, On [facility] 03/11/22 at 0945, [place] proMETHazin 2021-05- No 12.5mg 12.5 mg, Univers e 0-30 10-30 IV ity of (PHENERGAN) 14:45: 15:04 Piggyback, [place] 12.5 mg in 00 :00 ONCE, 1 Medica l NaCl 0.9% dose, On [place] (NS) 50 mL Sun IV 03/11/22 piggyback at 0945, [place] proMETHazin 2021-05 Yes [id number] 25mg Take 1 Univers e 25 mg 0-30 tablet by ity of tablet 00:00: mouth [place] 00 every 6 Medical (six) Branch hours as needed for Nausea and Vomiting (N/V). methocarbam 2021-05 Yes [id number] 500mg Take 1 Univers oL 500 mg 0-30 tablet by ity o f tablet 00:00: mouth 3 [place] 00 (three) Medical times Branch daily as needed for Pain (scale 7-10). proMETHazin 2021-05 Yes [id number] 25mg Take 1 Univers e 25 mg 0-30 tablet by ity of tablet 00:00: mouth [place] 00 every 6 Medical (six) Branch hours as needed for Nausea and Vomiting (N/V). methocarbam 2021-05 Yes [id number] 500mg Take 1 Univers oL 500 mg 0-30 tablet by ity o f tablet 00:00: mouth 3 [place] 00 (three) Medical times Branch daily as needed for Pain (scale 7-10). proMETHazin 2021-05 Yes [id number] 25mg Take 1 Univers e 25 mg 0-30 tablet by ity of tablet 00:00: mouth [place] 00 every 6 Medical (six) Branch hours as needed for Nausea and Vomiting (N/V). methocarbam 2021-05 Yes [id number] 500mg Take 1 Univers oL 500 mg 0-30 tablet by ity o f tablet 00:00: mouth 3 [place] 00 (three) Medical times Branch daily as needed for Pain (scale 7-10). proMETHazin 2021-05 Yes [id number] 25mg Take 1 Univers e 25 mg 0-30 tablet by ity of tablet 00:00: mouth [place] 00 every 6 Medical (six) Branch hours as needed for Nausea and Vomiting (N/V). methocarbam 2021-05 Yes [id number] 500mg Take 1 Univers oL 500 mg 0-30 tablet by ity o f tablet 00:00: mouth 3 [place] 00 (three) Medical times Branch daily as needed for Pain (scale 7-10). proMETHazin 2021-05 Yes [id number] 25mg Take 1 Univers e 25 mg 0-30 tablet by ity of tablet 00:00: mouth [place] 00 every 6 Medical (six) Branch hours as needed for Nausea and Vomiting (N/V). methocarbam 2021-05 Yes [id number] 500mg Take 1 Univers oL 500 mg 0-30 tablet by ity o f tablet 00:00: mouth 3 [place] 00 (three) Medical times Branch daily as needed for Pain (scale 7-10). proMETHazin 2021-05 Yes [id number] 25mg Take 1 Univers e 25 mg 0-30 tablet by ity of tablet 00:00: mouth [place] 00 every 6 Medical (six) Branch hours as needed for Nausea and Vomiting (N/V). methocarbam 2021-05 Yes [id number] 500mg Take 1 [facility] oL 500 mg 0-30 tablet by ity o f tablet 00:00: mouth 3 00 (three) Medical times Branch daily as needed for Pain (scale 7-10). proMETHazin 2021-05 Yes [id number] 25mg Take 1 Univers e 25 mg 0-30 tablet by ity of tablet 00:00: mouth [place] 00 every 6 Medical (six) Branch hours as needed for Nausea and Vomiting (N/V). methocarbam 2021-05 Yes [id number] 500mg Take 1 Univers oL 500 mg 0-30 tablet by ity o f tablet 00:00: mouth 3 00 (three) Medical times Branch daily as needed for Pain (scale 7-10). proMETHazin 2021-05 Yes [id number] 25mg Take 1 Univers e 25 mg 0-30 tablet by ity of tablet 00:00: mouth [place] 00 every 6 Medical (six) Branch hours as needed for Nausea and Vomiting (N/V). methocarbam 2021-05 Yes [id number] 500mg Take 1 Univers oL 500 mg 0-30 tablet by ity o f tablet 00:00: mouth 3 00 (three) Medical times Branch daily as needed for Pain (scale 7-10). proMETHazin 2021-05 Yes [id number] 25mg Take 1 Univers e 25 mg 0-30 tablet by ity of tablet 00:00: mouth [place] 00 every 6 Medical (six) Branch hours as needed for Nausea and Vomiting (N/V). methocarbam 2021-05 Yes [id number] 500mg Take 1 Univers oL 500 mg 0-30 tablet by ity o f tablet 00:00: mouth 3 [place] 00 (three) Medical times Branch daily as needed for Pain (scale 7-10). proMETHazin 2021-05 Yes [id number] 25mg Take 1 Univers e 25 mg 0-30 tablet by ity of tablet 00:00: mouth [place] 00 every 6 Medical (six) Branch hours as needed for Nausea and Vomiting (N/V). methocarbam 2021-05 Yes [id number] 500mg Take 1 Univers oL 500 mg 0-30 tablet by ity o f tablet 00:00: mouth 3 [place] 00 (three) Medical times Branch daily as needed for Pain (scale 7-10). proMETHazin 2021-05 Yes [id number] 25mg Take 1 Univers e 25 mg 0-30 tablet by ity of tablet 00:00: mouth [place] 00 every 6 Medical (six) Branch hours as needed for Nausea and Vomiting (N/V). methocarbam 2021-05 Yes [id number] 500mg Take 1 [facility] oL 500 mg 0-30 tablet by ity o f tablet 00:00: mouth 3 00 (three) Medical times Branch daily as needed for Pain (scale 7-10). proMETHazin 2021-05 Yes [id number] 25mg Take 1 Univers e 25 mg 0-30 tablet by ity of tablet 00:00: mouth [place] 00 every 6 Medical (six) Branch hours as needed for Nausea and Vomiting (N/V). proMETHazin 2021-05 Yes [id number] 25mg Take 1 Univers e 25 mg 0-30 tablet by ity of tablet 00:00: mouth [place] 00 every 6 Medical (six) Branch hours as needed for Nausea and Vomiting (N/V). proMETHazin 2021-05 Yes [id number] 25mg Take 1 Univers e 25 mg 0-30 tablet by ity of tablet 00:00: mouth [place] 00 every 6 Medical (six) Branch hours as needed for Nausea and Vomiting (N/V). proMETHazin 2021-05 Yes [id number] 25mg Take 1 Univers e 25 mg 0-30 tablet by ity of tablet 00:00: mouth [place] 00 every 6 Medical (six) Branch hours as needed for Nausea and Vomiting (N/V). proMETHazin 2021-05 Yes [id number] 25mg Take 1 Univers e 25 mg 0-30 tablet by ity of tablet 00:00: mouth [place] 00 every 6 Medical (six) Branch hours as needed for Nausea and Vomiting (N/V). proMETHazin 2021-05 Yes [id number] 25mg Take 1 Univers e 25 mg 0-30 tablet by ity of tablet 00:00: mouth [place] 00 every 6 Medical (six) Branch hours as needed for Nausea and Vomiting (N/V). proMETHazin 2021-05 Yes [id number] 25mg Take 1 Univers e 25 mg 0-30 tablet by ity of tablet 00:00: mouth [place] 00 every 6 Medical (six) Branch hours as needed for Nausea and Vomiting (N/V). proMETHazin 2021-05 Yes [id number] 25mg Take 1 Univers e 25 mg 0-30 tablet by ity of tablet 00:00: mouth [place] 00 every 6 Medical (six) Branch hours as needed for Nausea and Vomiting (N/V). proMETHazin 2021-05 Yes [id number] 25mg Take 1 Univers e 25 mg 0-30 tablet by ity of tablet 00:00: mouth [place] 00 every 6 Medical (six) Branch hours as needed for Nausea and Vomiting (N/V). proMETHazin 2021-05 Yes [id number] 25mg Take 1 Univers e 25 mg 0-30 tablet by ity of tablet 00:00: mouth [place] 00 every 6 Medical (six) Branch hours as needed for Nausea and Vomiting (N/V). proMETHazin 2021-05 Yes [id number] 25mg Take 1 Univers e 25 mg 0-30 tablet by ity of tablet 00:00: mouth [place] 00 every 6 Medical (six) Branch hours as needed for Nausea and Vomiting (N/V). proMETHazin 2021-05 Yes [id number] 25mg Take 1 Univers e 25 mg 0-30 tablet by ity of tablet 00:00: mouth [place] 00 every 6 Medical (six) Branch hours as needed for Nausea and Vomiting (N/V). proMETHazin 2021-05 Yes [id number] 25mg Take 1 Univers e 25 mg 0-30 tablet by ity of tablet 00:00: mouth [place] 00 every 6 Medical (six) Branch hours as needed for Nausea and Vomiting (N/V). proMETHazin 2021-05 Yes [id number] 25mg Take 1 Univers e 25 mg 0-30 tablet by ity of tablet 00:00: mouth [place] 00 every 6 Medical (six) Branch hours as needed for Nausea and Vomiting (N/V). proMETHazin 2021-05 Yes [id number] 25mg Take 1 Univers e 25 mg 0-30 tablet by ity of tablet 00:00: mouth [place] 00 every 6 Medical (six) Branch hours as needed for Nausea and Vomiting (N/V). proMETHazin 2021-05 Yes [id number] 25mg Take 1 Univers e 25 mg 0-30 tablet by ity of tablet 00:00: mouth [place] 00 every 6 Medical (six) Branch hours as needed for Nausea and Vomiting (N/V). proMETHazin 2021-05 Yes [id number] 25mg Take 1 [facility] e 25 mg 0-30 tablet by ity of tablet 00:00: mouth [place] 00 every 6 Medical (six) Branch hours as needed for Nausea and Vomiting (N/V). proMETHazin 2021-05- No [id number] 25mg Take 1 [facility] e 25 mg 0-30 03-21 tablet by ity of tablet 00:00: 00:00 mouth [place] 00 :00 every 6 Medical (six) Branch hours as needed for Nausea and Vomiting (N/V). methocarbam 2021-05- No [id number] 500mg Take 1 [facility] oL 500 mg 0-30 11-26 tablet by ity of tablet 00:00: 00:00 mouth 3 [place] 00 :00 (three) Medical times Branch daily as needed for Pain (scale 7-10). topiramate 2021-05 Yes [id number] 100mg Take 4 [facility] 25 mg 0-21 tablets by ity of tablet 00:00: mouth in [place] 00 the Medical morning. Branch topiramate 2021-05 Yes [id number] 100mg Take 4 [facility] 25 mg 0-21 tablets by ity of tablet 00:00: mouth in [place] 00 the Medical morning. Branch topiramate 2021-05 Yes [id number] 100mg Take 4 [facility] 25 mg 0-21 tablets by ity of tablet 00:00: mouth in [place] 00 the Medical morning. Branch topiramate 2021-05 Yes [id number] 100mg Take 4 [facility] 25 mg 0-21 tablets by ity of tablet 00:00: mouth in [place] 00 the Medical morning. Branch topiramate 2021-05 Yes [id number] 100mg Take 4 [facility] 25 mg 0-21 tablets by ity of tablet 00:00: mouth in [place] the Medical morning. Branch topiramate 2021-1 Yes [id number] 100mg Take 4 [facility] 25 mg 0-21 tablets by ity of tablet 00:00: mouth in [place] the Medical morning. Branch topiramate 2021-1 Yes [id number] 100mg Take 4 [facility] 25 mg 0-21 tablets by ity of tablet 00:00: mouth in [place] the Medical morning. Branch topiramate 2021-1 Yes [id number] 100mg Take 4 [facility] 25 mg 0-21 tablets by ity of tablet 00:00: mouth in [place] the Medical morning. Branch topiramate 2021-1 Yes [id number] 100mg Take 4 [facility] 25 mg 0-21 tablets by ity of tablet 00:00: mouth in [place] the Medical morning. Branch topiramate 2021-1 Yes [id number] 100mg Take 4 [facility] 25 mg 0-21 tablets by ity of tablet 00:00: mouth in [place] the Medical morning. Branch topiramate 2021- Yes [id number] 100mg Take 4 [facility] 25 mg 0-21 tablets by ity of tablet 00:00: mouth in [place] the Medical morning. Branch topiramate 2021- Yes [id number] 100mg Take 4 [facility] 25 mg 0-21 tablets by ity of tablet 00:00: mouth in [place] the Medical morning. Branch topiramate 2021-1 Yes [id number] 100mg Take 4 [facility] 25 mg 0-21 tablets by ity of tablet 00:00: mouth in [place] the Medical morning. Branch topiramate 2-1 Yes [id number] 100mg Take 4 [facility] 25 mg 0-21 tablets by ity of tablet 00:00: mouth in [place] the Medical morning. Branch topiramate 2-1 Yes [id number] 100mg Take 4 [facility] 25 mg 0-21 tablets by ity of tablet 00:00: mouth in [place] the Medical morning. Branch topiramate 2-1 Yes [id number] 100mg Take 4 [facility] 25 mg 0-21 tablets by ity of tablet 00:00: mouth in [place] the Medical morning. Branch topiramate 2021-1 Yes [id number] 100mg Take 4 [facility] 25 mg 0-21 tablets by ity of tablet 00:00: mouth in [place] 00 the Medical morning. Branch topiramate 2-1 Yes [id number] 100mg Take 4 [facility] 25 mg 0-21 tablets by ity of tablet 00:00: mouth in [place] the Medical morning. Branch topiramate 2-1 Yes [id number] 100mg Take 4 [facility] 25 mg 0-21 tablets by ity of tablet 00:00: mouth in [place] the Medical morning. Branch topiramate 2-1 Yes [id number] 100mg Take 4 [facility] 25 mg 0-21 tablets by ity of tablet 00:00: mouth in [place] the Medical morning. Branch topiramate 2-1 Yes [id number] 100mg Take 4 [facility] 25 mg 0-21 tablets by ity of tablet 00:00: mouth in [place] the Medical morning. Branch topiramate 2-1 Yes [id number] 100mg Take 4 [facility] 25 mg 0-21 tablets by ity of tablet 00:00: mouth in [place] the Medical morning. Branch topiramate 2021-1 Yes [id number] 100mg Take 4 [facility] 25 mg 0-21 tablets by ity of tablet 00:00: mouth in [place] the Medical morning. Branch topiramate 2-1 Yes [id number] 100mg Take 4 [facility] 25 mg 0-21 tablets by ity of tablet 00:00: mouth in [place] the Medical morning. Branch topiramate 2-1 Yes [id number] 100mg Take 4 [facility] 25 mg 0-21 tablets by ity of tablet 00:00: mouth in [place] the Medical morning. Branch topiramate 2-1 Yes [id number] 100mg Take 4 [facility] 25 mg 0-21 tablets by ity of tablet 00:00: mouth in [place] the Medical morning. Branch topiramate 2-1 Yes [id number] 100mg Take 4 [facility] 25 mg 0-21 tablets by ity of tablet 00:00: mouth in [place] the Medical morning. Branch topiramate 2022-1 Yes [id number] 100mg Take 4 [facility] 25 mg 0-21 tablets by ity of tablet 00:00: mouth in [place] 00 the Medical morning. Branch topiramate 2022-1 Yes [id number] 100mg Take 4 [facility] 25 mg 0-21 tablets by ity of tablet 00:00: mouth in [place] 00 the Medical morning. Branch topiramate 2022-1 Yes [id number] 100mg Take 4 [facility] 25 mg 0-21 tablets by ity of tablet 00:00: mouth in [place] the Medical morning. Branch topiramate 2021-1 Yes [id number] 100mg Take 4 [facility] 25 mg 0-21 tablets by ity of tablet 00:00: mouth in [place] the Medical morning. Branch topiramate 2021-1 Yes [id number] 100mg Take 4 [facility] 25 mg 0-21 tablets by ity of tablet 00:00: mouth in [place] the Medical morning. Branch topiramate 2021-1 Yes [id number] 100mg Take 4 [facility] 25 mg 0-21 tablets by ity of tablet 00:00: mouth in [place] the Medical morning. Branch topiramate 2021-1 Yes [id number] 100mg Take 4 [facility] 25 mg 0-21 tablets by ity of tablet 00:00: mouth in [place] the Medical morning. Branch topiramate 2021-1 Yes [id number] 100mg Take 4 [facility] 25 mg 0-21 tablets by ity of tablet 00:00: mouth in [place] the Medical morning. Branch topiramate 2021- Yes [id number] 100mg Take 4 [facility] 25 mg 0-21 tablets by ity of tablet 00:00: mouth in [place] the Medical morning. Branch topiramate 2021- Yes [id number] 100mg Take 4 [facility] 25 mg 0-21 tablets by ity of tablet 00:00: mouth in [place] the Medical morning. Branch topiramate 2021-1 Yes [id number] 100mg Take 4 [facility] 25 mg 0-21 tablets by ity of tablet 00:00: mouth in [place] the Medical morning. Branch topiramate 2-1 Yes [id number] 100mg Take 4 [facility] 25 mg 0-21 tablets by ity of tablet 00:00: mouth in [place] the Medical morning. Branch topiramate 2-1 Yes [id number] 100mg Take 4 [facility] 25 mg 0-21 tablets by ity of tablet 00:00: mouth in [place] the Medical morning. Branch topiramate 2-1 Yes [id number] 100mg Take 4 [facility] 25 mg 0-21 tablets by ity of tablet 00:00: mouth in [place] the Medical morning. Branch topiramate 2021-1 Yes [id number] 100mg Take 4 [facility] 25 mg 0-21 tablets by ity of tablet 00:00: mouth in [place] the Medical morning. Branch diphenhydrA 2021-05- No 25mg Take 25 mg [facility] MINE 25 mg 0-18 10-18 by mouth ity of capsule 09:39: 00:00 every 6 [place] 59 :00 (six) Medical hours as Branch needed for Allergies. diphenhydrA 2021-05- No 25mg Take 25 mg [facility] MINE 25 mg 0-18 10-18 by mouth ity of capsule 09:39: 00:00 every 6 [place] 59 :00 (six) Medical hours as Branch [...] ity of capsule 09:39: 00:00 every 6 [place] 59 :00 (six) Medical hours as Branch [...] 28 :00 Medical Branch albuterol 2021-05 Yes [id number] 2{puff} Inhale 2 [facility] 90 0-18 Puffs ity of mcg/actuati 00:00: every 6 [place] on inhaler 00 (six) Medical hours as Branch needed for Wheezing or Shortness of Breath. albuterol 2021-05 Yes [id number] 2{puff} Inhale 2 [facility] 90 0-18 Puffs ity of mcg/actuati 00:00: every 6 [place] on inhaler 00 (six) Medical hours as Branch needed for Wheezing or Shortness of Breath. albuterol 2021-05 Yes [id number] 2{puff} Inhale 2 [facility] 90 0-18 Puffs ity of mcg/actuati 00:00: every 6 [place] on inhaler 00 (six) Medical hours as Branch needed for Wheezing or Shortness of Breath. albuterol 2021-05 Yes [id number] 2{puff} Inhale 2 [facility] 90 0-18 Puffs ity of mcg/actuati 00:00: every 6 [place] on inhaler 00 (six) Medical hours as Branch needed for Wheezing or Shortness of Breath. albuterol 2021-05 Yes [id number] 2{puff} Inhale 2 [facility] 90 0-18 Puffs ity of mcg/actuati 00:00: every 6 [place] on inhaler 00 (six) Medical hours as Branch needed for Wheezing or Shortness of Breath. albuterol 2021-05 Yes [id number] 2{puff} Inhale 2 [facility] 90 0-18 Puffs ity of mcg/actuati 00:00: every 6 [place] on inhaler 00 (six) Medical hours as Branch needed for Wheezing or Shortness of Breath. albuterol 2021-05 Yes [id number] 2{puff} Inhale 2 [facility] 90 0-18 Puffs ity of mcg/actuati 00:00: every 6 [place] on inhaler 00 (six) Medical hours as Branch needed for Wheezing or Shortness of Breath. albuterol 2021-05 Yes [id number] 2{puff} Inhale 2 [facility] 90 0-18 Puffs ity of mcg/actuati 00:00: every 6 [place] on inhaler 00 (six) Medical hours as Branch needed for Wheezing or Shortness of Breath. albuterol 2021-05 Yes [id number] 2{puff} Inhale 2 [facility] 90 0-18 Puffs ity of mcg/actuati 00:00: every 6 [place] on inhaler 00 (six) Medical hours as Branch needed for Wheezing or Shortness of Breath. albuterol 2021-05 Yes [id number] 2{puff} Inhale 2 [facility] 90 0-18 Puffs ity of mcg/actuati 00:00: every 6 [place] on inhaler 00 (six) Medical hours as Branch needed for Wheezing or Shortness of Breath. albuterol 2021-05 Yes [id number] 2{puff} Inhale 2 [facility] 90 0-18 Puffs ity of mcg/actuati 00:00: every 6 [place] on inhaler 00 (six) Medical hours as Branch needed for Wheezing or Shortness of Breath. albuterol 2021-05 Yes [id number] 2{puff} Inhale 2 [facility] 90 0-18 Puffs ity of mcg/actuati 00:00: every 6 [place] on inhaler 00 (six) Medical hours as Branch needed for Wheezing or Shortness of Breath. albuterol 2021-05 Yes [id number] 2{puff} Inhale 2 [facility] 90 0-18 Puffs ity of mcg/actuati 00:00: every 6 [place] on inhaler 00 (six) Medical hours as Branch needed for Wheezing or Shortness of Breath. albuterol 2021-05 Yes [id number] 2{puff} Inhale 2 [facility] 90 0-18 Puffs ity of mcg/actuati 00:00: every 6 [place] on inhaler 00 (six) Medical hours as Branch needed for Wheezing or Shortness of Breath. albuterol 2021-05 Yes [id number] 2{puff} Inhale 2 [facility] 90 0-18 Puffs ity of mcg/actuati 00:00: every 6 [place] on inhaler 00 (six) Medical hours as Branch needed for Wheezing or Shortness of Breath. albuterol 2021-05 Yes [id number] 2{puff} Inhale 2 [facility] 90 0-18 Puffs ity of mcg/actuati 00:00: every 6 [place] on inhaler 00 (six) Medical hours as Branch needed for Wheezing or Shortness of Breath. albuterol 2021-05 Yes [id number] 2{puff} Inhale 2 [facility] 90 0-18 Puffs ity of mcg/actuati 00:00: every 6 [place] on inhaler 00 (six) Medical hours as Branch needed for Wheezing or Shortness of Breath. albuterol 2021-05 Yes [id number] 2{puff} Inhale 2 [facility] 90 0-18 Puffs ity of mcg/actuati 00:00: every 6 [place] on inhaler 00 (six) Medical hours as Branch needed for Wheezing or Shortness of Breath. albuterol 2021-05 Yes [id number] 2{puff} Inhale 2 [facility] 90 0-18 Puffs ity of mcg/actuati 00:00: every 6 [place] on inhaler 00 (six) Medical hours as Branch needed for Wheezing or Shortness of Breath. albuterol 2021-05 Yes [id number] 2{puff} Inhale 2 [facility] 90 0-18 Puffs ity of mcg/actuati 00:00: every 6 [place] on inhaler 00 (six) Medical hours as Branch needed for Wheezing or Shortness of Breath. albuterol 2021-05 Yes [id number] 2{puff} Inhale 2 [facility] 90 0-18 Puffs ity of mcg/actuati 00:00: every 6 [place] on inhaler 00 (six) Medical hours as Branch needed for Wheezing or Shortness of Breath. albuterol 2021-05 Yes [id number] 2{puff} Inhale 2 [facility] 90 0-18 Puffs ity of mcg/actuati 00:00: every 6 [place] on inhaler 00 (six) Medical hours as Branch needed for Wheezing or Shortness of Breath. albuterol 2021-05 Yes [id number] 2{puff} Inhale 2 [facility] 90 0-18 Puffs ity of mcg/actuati 00:00: every 6 [place] on inhaler 00 (six) Medical hours as Branch needed for Wheezing or Shortness of Breath. albuterol 2021-05 Yes [id number] 2{puff} Inhale 2 [facility] 90 0-18 Puffs ity of mcg/actuati 00:00: every 6 [place] on inhaler 00 (six) Medical hours as Branch needed for Wheezing or Shortness of Breath. albuterol 2021-05 Yes [id number] 2{puff} Inhale 2 [facility] 90 0-18 Puffs ity of mcg/actuati 00:00: every 6 [place] on inhaler 00 (six) Medical hours as Branch needed for Wheezing or Shortness of Breath. albuterol 2021-05 Yes [id number] 2{puff} Inhale 2 [facility] 90 0-18 Puffs ity of mcg/actuati 00:00: every 6 [place] on inhaler 00 (six) Medical hours as Branch needed for Wheezing or Shortness of Breath. albuterol 2021-05 Yes [id number] 2{puff} Inhale 2 [facility] 90 0-18 Puffs ity of mcg/actuati 00:00: every 6 [place] on inhaler 00 (six) Medical hours as Branch needed for Wheezing or Shortness of Breath. albuterol 2021-05 Yes [id number] 2{puff} Inhale 2 [facility] 90 0-18 Puffs ity of mcg/actuati 00:00: every 6 [place] on inhaler 00 (six) Medical hours as Branch needed for Wheezing or Shortness of Breath. albuterol 2021-05 Yes [id number] 2{puff} Inhale 2 [facility] 90 0-18 Puffs ity of mcg/actuati 00:00: every 6 [place] on inhaler 00 (six) Medical hours as Branch needed for Wheezing or Shortness of Breath. albuterol 2021-05 Yes [id number] 2{puff} Inhale 2 [facility] 90 0-18 Puffs ity of mcg/actuati 00:00: every 6 [place] on inhaler 00 (six) Medical hours as Branch needed for Wheezing or Shortness of Breath. albuterol 2021-05 Yes [id number] 2{puff} Inhale 2 [facility] 90 0-18 Puffs ity of mcg/actuati 00:00: every 6 [place] on inhaler 00 (six) Medical hours as Branch needed for Wheezing or Shortness of Breath. albuterol 2021-05 Yes [id number] 2{puff} Inhale 2 [facility] 90 0-18 Puffs ity of mcg/actuati 00:00: every 6 [place] on inhaler 00 (six) Medical hours as Branch needed for Wheezing or Shortness of Breath. albuterol 2021-05 Yes [id number] 2{puff} Inhale 2 [facility] 90 0-18 Puffs ity of mcg/actuati 00:00: every 6 [place] on inhaler 00 (six) Medical hours as Branch needed for Wheezing or Shortness of Breath. albuterol 2021-05 Yes [id number] 2{puff} Inhale 2 [facility] 90 0-18 Puffs ity of mcg/actuati 00:00: every 6 [place] on inhaler 00 (six) Medical hours as Branch needed for Wheezing or Shortness of Breath. albuterol 2021-05 Yes [id number] 2{puff} Inhale 2 [facility] 90 0-18 Puffs ity of mcg/actuati 00:00: every 6 [place] on inhaler 00 (six) Medical hours as Branch needed for Wheezing or Shortness of Breath. albuterol 2021-05 Yes [id number] 2{puff} Inhale 2 [facility] 90 0-18 Puffs ity of mcg/actuati 00:00: every 6 [place] on inhaler 00 (six) Medical hours as Branch needed for Wheezing or Shortness of Breath. albuterol 2021-05 Yes [id number] 2{puff} Inhale 2 [facility] 90 0-18 Puffs ity of mcg/actuati 00:00: every 6 [place] on inhaler 00 (six) Medical hours as Branch needed for Wheezing or Shortness of Breath. albuterol 2021-05 Yes [id number] 2{puff} Inhale 2 [facility] 90 0-18 Puffs ity of mcg/actuati 00:00: every 6 [place] on inhaler 00 (six) Medical hours as Branch needed for Wheezing or Shortness of Breath. albuterol 2021-05 Yes [id number] 2{puff} Inhale 2 [facility] 90 0-18 Puffs ity of mcg/actuati 00:00: every 6 [place] on inhaler 00 (six) Medical hours as Branch needed for Wheezing or Shortness of Breath. albuterol 2021-05 Yes [id number] 2{puff} Inhale 2 [facility] 90 0-18 Puffs ity of mcg/actuati 00:00: every 6 [place] on inhaler 00 (six) Medical hours as Branch needed for Wheezing or Shortness of Breath. albuterol 2021-05 Yes [id number] 2{puff} Inhale 2 [facility] 90 0-18 Puffs ity of mcg/actuati 00:00: every 6 [place] on inhaler 00 (six) Medical hours as Branch needed for Wheezing or Shortness of Breath. albuterol 2021-05 Yes [id number] 2{puff} Inhale 2 [facility] 90 0-18 Puffs ity of mcg/actuati 00:00: every 6 [place] on inhaler 00 (six) Medical hours as Branch needed for Wheezing or Shortness of Breath. albuterol 2021-05 Yes [id number] 2{puff} Inhale 2 [facility] 90 0-18 Puffs ity of mcg/actuati 00:00: every 6 [place] on inhaler 00 (six) Medical hours as Branch needed for Wheezing or Shortness of Breath. albuterol 2021-05 Yes [id number] 2{puff} Inhale 2 [facility] 90 0-18 Puffs ity of mcg/actuati 00:00: every 6 [place] on inhaler 00 (six) Medical hours as Branch needed for Wheezing or Shortness of Breath. albuterol 2021-05 Yes [id number] 2{puff} Inhale 2 [facility] 90 0-18 Puffs ity of mcg/actuati 00:00: every 6 [place] on inhaler 00 (six) Medical hours as Branch needed for Wheezing or Shortness of Breath. albuterol 2021-05 Yes [id number] 2{puff} Inhale 2 [facility] 90 0-18 Puffs ity of mcg/actuati 00:00: every 6 [place] on inhaler 00 (six) Medical hours as Branch needed for Wheezing or Shortness of Breath. albuterol 2021-05 Yes [id number] 2{puff} Inhale 2 [facility] 90 0-18 Puffs [...] a 24 hour period. benzonatate 2021-05- No [id number] 200mg Take 1 [facility] 200 mg 0-18 10-26 capsule by ity of capsule 00:00: 04:59 mouth 3 [place] 00 :00 (three) Medical times Branch daily as needed for Cough for up to 7 days. benzonatate 2021-05- No [id number] 200mg Take 1 [facility] 200 mg 0-18 10-26 capsule by ity of capsule 00:00: 04:59 mouth 3 [place] 00 :00 (three) Medical times Branch daily as needed for Cough for up to 7 days. benzonatate 2021-05- No [id number] 200mg Take 1 [facility] 200 mg 0-18 10-26 capsule by ity of capsule 00:00: 04:59 mouth 3 [place] 00 :00 (three) Medical times Branch daily as needed for Cough for up to 7 days. benzonatate 2021-05- No [id number] 200mg Take 1 [facility] 200 mg 0-18 10-26 capsule by ity of capsule 00:00: 04:59 mouth 3 [place] 00 :00 (three) Medical times Branch daily as needed for Cough for up to 7 days. benzonatate 2021-05- No [id number] 200mg Take 1 [facility] 200 mg 0-18 10-26 capsule by ity of capsule 00:00: 04:59 mouth 3 [place] 00 :00 (three) Medical times Branch daily as needed for Cough for up to 7 days. benzonatate 2021-05- No [id number] 200mg Take 1 [facility] 200 mg 0-18 10-26 capsule by ity of capsule 00:00: 04:59 mouth 3 [place] 00 :00 (three) Medical times Branch daily as needed for Cough for up to 7 days. SUMAtriptan 2021-05 No [id number] 50mg Take 1 [facility] 50 mg [id number] tablet by ity of tablet 00:00: 04:59 mouth [place] 00 :00 now for 1 Medical dose. [place] SUMAtriptan 2021-05 No [id number] 50mg Take 1 [facility] 50 mg 002-28 [id number] tablet by ity of tablet 00:00: 04:59 mouth [place] 00 :00 now for 1 Medical dose. [place] butalbital- 2021-05- No 1{tbl} 1 tablet, Univers acetaminoph 0- 10-12 Oral, ity of en-caff 08:15: 08:09 ONCE, 1 [place] (ESGIC) 00 :00 dose, On Medical 50-325-40 Wed Branch mg tablet 1 02/21/22 tablet at 0315, [place] butorphanol 2021-05 No 1mg 1 mg, IV U nivers (STADOL) 0 10-12 Push, ity of injection 1 08:15: 07:28 ONCE, 1 [place] mg 00 :00 dose, On Medical Wed Branch 02/21/22 at 0315, Routine NaCl 0.9% 2021-05 1000mL at 999 Uni vers (NS) bolus 0- 10-12 mL/hr, ity of infusion 07:15: 08:40 1,000 mL, [place] 1,000 mL 00 :00 IV Medical Infusion, Branch ONCE, 1 dose, On [facility] 02/21/22 at 0215, [place] proMETHazin 2021-05 No 12.5mg 12.5 mg, Univers e 0-12 -12 IV ity of (PHENERGAN) 06:30: 06:38 Piggyback, [place] 12.5 mg in 00 :00 ONCE, 1 Medica l NaCl 0.9% dose, On [place] (NS) 50 mL Wed IV 02/21/22 piggyback at 0130, [place] dexamethaso 2021-05 No 10mg 10 mg, Uni vers ne sod phos 0-12 10-12 Slow IV ity of PF 06:30: 06:38 Push, [place] injection 00 :00 ONCE, 1 Medical 10 mg dose, On Branch 02/21/22 at 0130, 1 mL ketorolac 2021-05- No 15mg 15 mg, Unive rs (TORADOL) 002-21 Slow IV ity of injection 06:30: 06:38 Push, [place] 15 mg 00 :00 ONCE, 1 Medical dose, On Branch [facility] 02/21/22 at 0130, [place] diphenhydrA 2021-05- No 25mg 25 mg, Uni vers MINE 002-21 Slow IV ity of (BENADRYL) 06:30: 06:38 Push, [place] injection 00 :00 ONCE, 1 Medical 25 mg dose, On Branch 02/21/22 at 0130, [place] FENTanyl PF 2021-05 No 50ug 50 mcg, Un sushant (SUBLIMAZE 02-18 Slow IV ity o f (PF)) 20:30: 19:44 Push, [place] injection 00 :00 ONCE, 1 Medical 50 mcg dose, On Branch [place] 02/18/22 at 1530, Routine ketorolac 2021-05 No 30mg 30 mg, Unive rs (TORADOL) 002-18 Slow IV ity of injection 20:15: 20:09 Push, [place] 30 mg 00 :00 ONCE, 1 Medical dose, On Branch [place] 02/18/22 at 1515, [place] iopamidol 2021-05- No [id number] 60mL 60 mL, Un sushant (ISOVUE 02-18 Intravenou ity o f 370-500 mL) 19:30: 17:30 s, ONCE, 1 [place] injection 00 :00 dose, On Medica l 60 mL Sun Branch 02/18/22 at 1430, Routine proMETHazin 2021-05- No 12.5mg 12.5 mg, Univers e 002-18 IV ity of (PHENERGAN) 18:15: 18:19 Piggyback, [place] 12.5 mg in 00 :00 ONCE, 1 Medica l NaCl 0.9% dose, On Branch (NS) 50 mL Sun IV 02/18/22 at piggyback 1315, [place] FENTanyl PF 2022-1 2022- No 50ug 50 mcg, Un sushant (SUBLIMAZE 02-18 Slow IV ity o f (PF)) 18:00: 17:26 [place], [place] injection 00 :00 ONCE, 1 Medical 50 mcg dose, On [facility] 02/18/22 at 1300, Routine ondansetron 2021-05- No 4mg 4 mg, Slow Univers (ZOFRAN 02-18 IV Push, ity of (PF)) 17:15: 17:27 ONCE, 1 [place] injection 4 00 :00 dose, On Medi yessi mg [facility] 02/18/22 at 1215, [place] morpHINE (2 2021- No 4mg 4 mg, Slow Univers mg/mL) 01-18 IV Push, ity of injection 4 15:15: 14:49 ONCE, 1 [place] mg 00 :00 dose, On [facility] 01/18/22 Branch at 1015, STAT ondansetron 2021- No 4mg 4 mg, Slow Univers (ZOFRAN 01-18 IV Push, ity of (PF)) 13:30: 13:33 ONCE, 1 [place] injection 4 00 :00 dose, On Medi yessi mg [facility] 01/18/22 Branch at 0830, [place] morpHINE (4 2021- No 4mg 4 mg, Slow Univers mg/mL) 01-18 IV Push, ity of injection 4 13:30: 13:34 ONCE, 1 [place] mg 00 :[place] dose, On [facility] 01/18/22 Branch at 0830, STAT morpHINE (4 2021- No 4mg 4 mg, Slow Univers mg/mL) 01-18 IV Push, ity of injection 4 12:30: 11:39 ONCE, 1 [place] mg 00 :[place] dose, On [facility] 01/18/22 Branch at 0730, STAT famotidine 2021-2021- No 20mg 20 mg, Univ ers (PEPCID 01-18 Slow IV ity of (PF)) 11:30: 10:52 Push, [place] injection 00 :00 ONCE, 1 Medical 20 mg dose, On [facility] 01/18/22 at 0630, [place] ondansetron 2021- No 4mg 4 mg, Slow Univers (ZOFRAN 01-18 IV Push, ity of (PF)) 11:30: 10:52 ONCE, 1 [place] injection 4 00 :00 dose, On Medi yessi mg [facility] 01/18/22 Branch at 0630, [place] iodixanoL 2021- No [id number] 80mL 80 mL, U nivers (VISIPAQUE 01-18 [...] [place] 01/18/22 at 0615, [place] morpHINE (4 No 4mg 4 mg, [...] Indication s: acute pain ondansetron 0 Yes [id number] 4mg Take 1 [facility] 4 mg 01-18 [id number] tablet by ity of disintegrat 00:00: mouth [place] ing tablet 00 every 8 Medica l (eight) Branch hours as needed for Nausea and Vomiting (N/V). ibuprofen 2021-0 Yes [id number] 600mg Take 1 [facility] 600 mg 01-18 [id number] tablet by ity of tablet 00:00: mouth [place] 00 every 6 Medical (six) Branch hours as needed for Pain (scale 4-6). traMADoL 50 2021-0 Yes [id number] 50mg Take 1 Univ ers mg tablet -08 tablet by ity o f 00:00: mouth [place] 00 every 6 Medical (six) Branch hours as needed for Pain (scale 7-10). Indication s: acute pain ondansetron 2022-0 Yes [id number] 4mg Take 1 [facility] 4 mg 9-08 [id number] tablet by ity of disintegrat 00:00: mouth [place] ing tablet 00 every 8 Medica l (eight) Branch hours as needed for Nausea and Vomiting (N/V). ibuprofen 2022-0 Yes [id number] 600mg Take 1 [facility] 600 mg 9-08 [id number] tablet by ity of tablet 00:00: mouth [place] 00 every 6 Medical (six) Branch hours as needed for Pain (scale 4-6). traMADoL 50 2021-0 Yes [id number] 50mg Take 1 Univ ers mg tablet 9-08 tablet by ity o f 00:00: mouth [place] 00 every 6 Medical (six) Branch hours as needed for Pain (scale 7-10). Indication s: acute pain ondansetron 2-0 Yes [id number] 4mg Take 1 [facility] 4 mg 9-08 [id number] tablet by ity of disintegrat 00:00: mouth [place] ing tablet 00 every 8 Medica l (eight) Branch hours as needed for Nausea and Vomiting (N/V). ibuprofen 2-0 Yes [id number] 600mg Take 1 [facility] 600 mg 9-08 [id number] tablet by ity of tablet 00:00: mouth [place] 00 every 6 Medical (six) Branch hours as needed for Pain (scale 4-6). traMADoL 50 2021-0 Yes [id number] 50mg Take 1 Univ ers mg tablet 9-08 tablet by ity o f 00:00: mouth [place] 00 every 6 Medical (six) Branch hours as needed for Pain (scale 7-10). Indication s: acute pain ondansetron 2022-0 Yes [id number] 4mg Take 1 [facility] 4 mg 9-08 [id number] tablet by ity of disintegrat 00:00: mouth [place] ing tablet 00 every 8 Medica l (eight) Branch hours as needed for Nausea and Vomiting (N/V). ibuprofen 2022-0 Yes [id number] 600mg Take 1 [facility] 600 mg 9-08 [id number] tablet by ity of tablet 00:00: mouth [place] 00 every 6 Medical (six) Branch hours as needed for Pain (scale 4-6). traMADoL 50 2021-0 Yes [id number] 50mg Take 1 [facility] ers mg tablet 9-08 tablet by ity o f 00:00: mouth [place] 00 every 6 Medical (six) Branch hours as needed for Pain (scale 7-10). Indication s: acute pain ondansetron 2022-0 Yes [id number] 4mg Take 1 [facility] 4 mg 9-08 [id number] tablet by ity of disintegrat 00:00: mouth [place] ing tablet 00 every 8 Medica l (eight) Branch hours as needed for Nausea and Vomiting (N/V). ibuprofen 2022-0 Yes [id number] 600mg Take 1 [facility] 600 mg 9-08 [id number] tablet by ity of tablet 00:00: mouth [place] 00 every 6 Medical (six) Branch hours as needed for Pain (scale 4-6). traMADoL 50 2-0 Yes [id number] 50mg Take 1 [facility] ers mg tablet 9-08 tablet by ity o f 00:00: mouth [place] 00 every 6 Medical (six) Branch hours as needed for Pain (scale 7-10). Indication s: acute pain ondansetron 2022-0 Yes [id number] 4mg Take 1 [facility] 4 mg 9-08 [id number] tablet by ity of disintegrat 00:00: mouth [place] ing tablet 00 every 8 Medica l (eight) Branch hours as needed for Nausea and Vomiting (N/V). ibuprofen 2022-0 Yes [id number] 600mg Take 1 [facility] 600 mg 9-08 [id number] tablet by ity of tablet 00:00: mouth [place] 00 every 6 Medical (six) Branch hours as needed for Pain (scale 4-6). traMADoL 50 2022-0 Yes [id number] 50mg Take 1 [facility] ers mg tablet 9-08 tablet by ity o f 00:00: mouth [place] 00 every 6 Medical (six) Branch hours as needed for Pain (scale 7-10). Indication s: acute pain ondansetron 2022-0 Yes [id number] 4mg Take 1 [facility] 4 mg 9-08 [id number] tablet by ity of disintegrat 00:00: mouth [place] ing tablet 00 every 8 Medica l (eight) Branch hours as needed for Nausea and Vomiting (N/V). ibuprofen 2022-0 Yes [id number] 600mg Take 1 [facility] 600 mg 9-08 [id number] tablet by ity of tablet 00:00: mouth [place] 00 every 6 Medical (six) Branch hours as needed for Pain (scale 4-6). traMADoL 50 0 Yes [id number] 50mg Take 1 [facility] ers mg tablet 9-08 tablet by ity o f 00:00: mouth [place] 00 every 6 Medical (six) Branch hours as needed for Pain (scale 7-10). Indication s: acute pain ondansetron 0 Yes [id number] 4mg Take 1 [facility] 4 mg 9- [id number] tablet by ity of disintegrat 00:00: mouth [place] ing tablet 00 every 8 Medica l (eight) Branch hours as needed for Nausea and Vomiting (N/V). ibuprofen Yes [id number] 600mg Take 1 [facility] 600 mg 9- [id number] tablet by ity of tablet 00:00: mouth [place] 00 every 6 Medical (six) Branch hours as needed for Pain (scale 4-6). traMADoL 50 2021- No [id number] 50mg Take 1 [facility] vers mg tablet 01-18-18 tablet by ity of 00:00: 00:00 mouth [place] 00 :00 every 6 Medical (six) Branch hours as needed for Pain (scale 7-10). Indication s: acute pain ondansetron 2021- No [id number] 4mg Take 1 [facility] 4 mg -02-27 [id number] tablet by it[facility] of disintegrat 00:00: 00:00 [place] tablet 00 :00 every 8 Medica l (eight) Branch hours as needed for Nausea and Vomiting (N/V). ibuprofen 2021- No [id number] 600mg Take 1 [facility] 600 mg 9- 10-18 [id number] tablet by ity o f tablet 00:00: 00:00 mouth [place] 00 :00 every 6 Medical (six) Branch hours as needed for Pain (scale 4-6). traMADoL 50 2021- No [id number] 50mg Take 1 [facility] vers mg tablet 9- 10-18 tablet by ity of 00:00: 00:00 mouth [place] 00 :00 every 6 Medical (six) Branch hours as needed for Pain (scale 7-10). Indication s: acute pain ondansetron 2021- No [id number] 4mg Take 1 [facility] 4 mg 9-08 10-18 [id number] tablet by it[facility] of disintegrat 00:00: 00:00 [place] tablet 00 :00 every 8 Medica l (eight) Branch hours as needed for Nausea and Vomiting (N/V). ibuprofen 2021- No [id number] 600mg Take 1 [facility] 600 mg 01-18 [id number] tablet by ity o f tablet 00:00: [...] Indication s: acute pain ondansetron 2021-2021- No [id number] 4mg Take 1 [facility] 4 mg 01-18 [id number] tablet by it[facility] of disintegrat 00:00: 00:00 [place] tablet 00 :00 every 8 Medica l (eight) Branch hours as needed for Nausea and Vomiting (N/V). ibuprofen 2021- No [id number] 600mg Take 1 [facility] 600 mg 01-18 [id number] tablet by ity o f tablet 00:00: [...] Indication s: acute pain ondansetron 2021-2021- No [id number] 4mg Take 1 [facility] 4 mg 01-18 [id number] tablet by ity of disintegrat 00:00: 00:00 [place] tablet 00 :00 every 8 Medica l (eight) Branch hours as needed for Nausea and Vomiting (N/V). ibuprofen 2021-2- No [id number] 600mg Take 1 [facility] 600 mg 01-18 [id number] tablet by ity o f tablet 00:00: 00:00 mouth [place] 00 :00 every 6 Medical (six) Branch hours as needed for Pain (scale 4-6). predniSONE 2021- No [id number] 40mg Take 2 [facility] 20 mg 01-16 tablets by ity of tablet 00:00: 04:59 mouth in [place] 00 :00 the Medical morning Branch for 7 days. predniSONE 2021-2021- No [id number] 40mg Take 2 [facility] 20 mg 01-16 tablets by ity of tablet 00:00: 04:59 mouth in [place] 00 :00 the [facility] Branch for 7 days. morpHINE (4 2021- No 4mg 4 mg, Slow [facility] mg/mL) 01-15 IV Push, ity of injection 4 16:15: 15:28 ONCE, 1 [place] mg 00 :00 dose, On Medical Sat01/15/22 Branch at 1115, [place] proMETHazin No 12.5mg [...] 10 mg, Uni vers ne sod phos 01-15-05 Slow IV ity of PF 14:15: 14:37 Push, [place] injection 00 :00 ONCE, 1 Medical 10 mg dose, On Branch 01/15/22 at 0915, 1 mL proMETHazin 0 Yes [id number] 25mg Take 1 [facility] e 25 mg 9-05 tablet by ity of tablet 00:00: mouth [place] 00 every 6 Medical (six) Branch hours as needed for Nausea and Vomiting (N/V). proMETHazin 2021-0 Yes [id number] 25mg Take 1 [facility] e 25 mg 9-05 tablet by ity of tablet 00:00: mouth [place] 00 every 6 Medical (six) Branch hours as needed for Nausea and Vomiting (N/V). proMETHazin 0 Yes [id number] 25mg Take 1 [facility] e 25 mg 9-05 tablet by ity of tablet 00:00: mouth [place] 00 every 6 Medical (six) Branch hours as needed for Nausea and Vomiting (N/V). proMETHazin 2021-0 Yes [id number] 25mg Take 1 [facility] e 25 mg 9-05 tablet by ity of tablet 00:00: mouth [place] 00 every 6 Medical (six) Branch hours as needed for Nausea and Vomiting (N/V). proMETHazin 2021-0 Yes [id number] 25mg Take 1 [facility] e 25 mg 9-05 tablet by ity of tablet 00:00: mouth [place] 00 every 6 Medical (six) Branch hours as needed for Nausea and Vomiting (N/V). proMETHazin 2021-0 Yes [id number] 25mg Take 1 [facility] e 25 mg 9-05 tablet by ity of tablet 00:00: mouth [place] 00 every 6 Medical (six) Branch hours as needed for Nausea and Vomiting (N/V). proMETHazin 2021-0 Yes [id number] 25mg Take 1 [facility] e 25 mg 9-05 tablet by ity of tablet 00:00: mouth [place] 00 every 6 Medical (six) Branch hours as needed for Nausea and Vomiting (N/V). proMETHazin 2021-0 Yes [id number] 25mg Take 1 [facility] e 25 mg 9-05 tablet by ity of tablet 00:00: mouth [place] 00 every 6 Medical (six) Branch hours as needed for Nausea and Vomiting (N/V). proMETHazin 2021- Yes [id number] 25mg Take 1 [facility] e 25 mg 9-05 tablet by ity of tablet 00:00: mouth [place] 00 every 6 Medical (six) Branch hours as needed for Nausea and Vomiting (N/V). proMETHazin 2021- No [id number] 25mg Take 1 [facility] e 25 mg 9-05 10-18 tablet by ity of tablet 00:00: 00:00 mouth [place] 00 :00 every 6 Medical (six) Branch hours as needed for Nausea and Vomiting (N/V). proMETHazin 2021- No [id number] 25mg Take 1 [facility] e 25 mg 9-05 10-18 tablet by ity of tablet 00:00: 00:00 mouth [place] 00 :00 every 6 Medical (six) Branch hours as needed for Nausea and Vomiting (N/V). proMETHazin 2021- No [id number] 25mg Take 1 [facility] e 25 mg 9-05 10-18 tablet by ity of tablet 00:00: 00:00 mouth [place] 00 :00 every 6 Medical (six) Branch hours as needed for Nausea and Vomiting (N/V). proMETHazin 2021- No [id number] 25mg Take 1 [facility] e 25 mg [...] 2021- No 1{tbl} 1 tablet, Univers -acetaminop 8-30 08-30 Oral, ity of hen (NORCO 00:45: 00:37 ONCE, 1 [place] as 5) 5-325 mg 00 :00 dose, On Medi yessi tablet 1 Mon Branch tablet 8/29/22 at 1945, [place] diphenhydrA 2021- No 25mg [...] 01/08/22 at 1845, [place] ondansetron 0 Yes [id number] 4mg Take 1 [facility] 4 mg 8-29 tablet by ity of disintegrat 00:00: mouth [place] ing tablet 00 every 8 Medica l (eight) Branch hours as needed for Nausea and Vomiting (N/V). acetaminoph Yes [id number] 650mg Take 1 [facility] en (TYLENOL 8-29 tablet by ity of ARTHRITIS 00:00: mouth [place] PAIN) 650 00 every 8 Medical mg CR (eight) Branch tablet hours as needed for Pain. ketorolac 0 Yes [id number] 10mg Take 1 [facility] n[facility] 10 mg 8-29 tablet by ity of tablet 00:00: mouth [place] 00 every 6 Medical (six) Branch hours as needed for Pain (scale 4-6) or Pain (scale 7-10). metaxalone 0 Yes [id number] 800mg Take 1 [facility] (SKELAXIN) 8-29 tablet by ity of 800 mg 00:00: mouth in [place] tablet 00 the Medical morning Branch and 1 tablet at noon and 1 tablet in the evening. ondansetron 0 Yes [id number] 4mg Take 1 [facility] 4 mg 8-29 tablet by ity of disintegrat 00:00: mouth [place] ing tablet 00 every 8 Medica l (eight) Branch hours as needed for Nausea and Vomiting (N/V). acetaminoph 2022-0 Yes [id number] 650mg Take 1 [facility] en (TYLENOL 8-29 tablet by ity of ARTHRITIS 00:00: mouth [place] PAIN) 650 00 every 8 Medical mg CR (eight) Branch tablet hours as needed for Pain. ketorolac 2022-0 Yes [id number] 10mg Take 1 U nivers 10 mg 8-29 tablet by ity of tablet 00:00: mouth [place] 00 every 6 Medical (six) Branch hours as needed for Pain (scale 4-6) or Pain (scale 7-10). metaxalone 2022-0 Yes [id number] 800mg Take 1 [facility] (SKELAXIN) 8-29 tablet by ity of 800 mg 00:00: mouth in [place] tablet 00 the Medical morning Branch and 1 tablet at noon and 1 tablet in the evening. ondansetron 2-0 Yes [id number] 4mg Take 1 [facility] 4 mg 8-29 tablet by ity of disintegrat 00:00: mouth [place] ing tablet 00 every 8 Medica l (eight) Branch hours as needed for Nausea and Vomiting (N/V). acetaminoph 2-0 Yes [id number] 650mg Take 1 [facility] en (TYLENOL 8-29 tablet by ity of ARTHRITIS 00:00: mouth [place] PAIN) 650 00 every 8 Medical mg CR (eight) Branch tablet hours as needed for Pain. ketorolac 2022-0 Yes [id number] 10mg Take 1 U nivers 10 mg 8-29 tablet by ity of tablet 00:00: mouth [place] 00 every 6 Medical (six) Branch hours as needed for Pain (scale 4-6) or Pain (scale 7-10). metaxalone 2022-0 Yes [id number] 800mg Take 1 [facility] (SKELAXIN) 8-29 tablet by ity of 800 mg 00:00: mouth in [place] tablet 00 the Medical morning Branch and 1 tablet at noon and 1 tablet in the evening. ondansetron 2022-0 Yes [id number] 4mg Take 1 [facility] 4 mg 8-29 tablet by ity of disintegrat 00:00: mouth [place] ing tablet 00 every 8 Medica l (eight) Branch hours as needed for Nausea and Vomiting (N/V). acetaminoph 2022-0 Yes [id number] 650mg Take 1 [facility] en (TYLENOL 8-29 tablet by ity of ARTHRITIS 00:00: mouth [place] PAIN) 650 00 every 8 Medical mg CR (eight) Branch tablet hours as needed for Pain. ketorolac 2022-0 Yes [id number] 10mg Take 1 U nivers 10 mg 8-29 tablet by ity of tablet 00:00: mouth [place] 00 every 6 Medical (six) Branch hours as needed for Pain (scale 4-6) or Pain (scale 7-10). metaxalone 202-0 Yes [id number] 800mg Take 1 [facility] (SKELAXIN) 8-29 tablet by ity of 800 mg 00:00: mouth in [place] tablet 00 the Medical morning Branch and 1 tablet at noon and 1 tablet in the evening. ondansetron 2021-0 Yes [id number] 4mg Take 1 [facility] 4 mg 8-29 tablet by ity of disintegrat 00:00: mouth [place] ing tablet 00 every 8 Medica l (eight) Branch hours as needed for Nausea and Vomiting (N/V). acetaminoph 2021-0 Yes [id number] 650mg Take 1 [facility] en (TYLENOL 8-29 tablet by ity of ARTHRITIS 00:00: mouth [place] PAIN) 650 00 every 8 Medical mg CR (eight) Branch tablet hours as needed for Pain. ketorolac 2021-0 Yes [id number] 10mg Take 1 U nivers 10 mg 8-29 tablet by ity of tablet 00:00: mouth [place] 00 every 6 Medical (six) Branch hours as needed for Pain (scale 4-6) or Pain (scale 7-10). metaxalone 2-0 Yes [id number] 800mg Take 1 [facility] (SKELAXIN) 8-29 tablet by ity of 800 mg 00:00: mouth in [place] tablet 00 the Medical morning Branch and 1 tablet at noon and 1 tablet in the evening. ondansetron 2022-0 Yes [id number] 4mg Take 1 [facility] 4 mg 8-29 tablet by ity of disintegrat 00:00: mouth [place] ing tablet 00 every 8 Medica l (eight) Branch hours as needed for Nausea and Vomiting (N/V). acetaminoph 2022-0 Yes [id number] 650mg Take 1 [facility] en (TYLENOL 8-29 tablet by ity of ARTHRITIS 00:00: mouth [place] PAIN) 650 00 every 8 Medical mg CR (eight) Branch tablet hours as needed for Pain. ketorolac 202-0 Yes [id number] 10mg Take 1 U nivers 10 mg 8-29 tablet by ity of tablet 00:00: mouth [place] 00 every 6 Medical (six) Branch hours as needed for Pain (scale 4-6) or Pain (scale 7-10). metaxalone 2021-0 Yes [id number] 800mg Take 1 [facility] (SKELAXIN) 8-29 tablet by ity of 800 mg 00:00: mouth in [place] tablet 00 the Medical morning Branch and 1 tablet at noon and 1 tablet in the evening. ondansetron 2021-0 Yes [id number] 4mg Take 1 [facility] 4 mg 8-29 tablet by ity of disintegrat 00:00: mouth [place] ing tablet 00 every 8 Medica l (eight) Branch hours as needed for Nausea and Vomiting (N/V). acetaminoph 2021-0 Yes [id number] 650mg Take 1 [facility] en (TYLENOL 8-29 tablet by ity of ARTHRITIS 00:00: mouth [place] PAIN) 650 00 every 8 Medical mg CR (eight) Branch tablet hours as needed for Pain. ketorolac 2021-0 Yes [id number] 10mg Take 1 U nivers 10 mg 8-29 tablet by ity of tablet 00:00: mouth [place] 00 every 6 Medical (six) Branch hours as needed for Pain (scale 4-6) or Pain (scale 7-10). metaxalone 2021-0 Yes [id number] 800mg Take 1 [facility] (SKELAXIN) 8-29 tablet by ity of 800 mg 00:00: mouth in [place] tablet 00 the Medical morning Branch and 1 tablet at noon and 1 tablet in the evening. ondansetron 2022-0 Yes [id number] 4mg Take 1 [facility] 4 mg 8-29 tablet by ity of disintegrat 00:00: mouth [place] ing tablet 00 every 8 Medica l (eight) Branch hours as needed for Nausea and Vomiting (N/V). acetaminoph 2021-0 Yes [id number] 650mg Take 1 [facility] en (TYLENOL 8-29 tablet by ity of ARTHRITIS 00:00: mouth [place] PAIN) 650 00 every 8 Medical mg CR (eight) Branch tablet hours as needed for Pain. ketorolac 2022-0 Yes [id number] 10mg Take 1 U nivers 10 mg 8-29 tablet by ity of tablet 00:00: mouth [place] 00 every 6 Medical (six) Branch hours as needed for Pain (scale 4-6) or Pain (scale 7-10). metaxalone 202-0 Yes [id number] 800mg Take 1 [facility] (SKELAXIN) 8-29 tablet by ity of 800 mg 00:00: mouth in [place] tablet 00 the Medical morning Branch and 1 tablet at noon and 1 tablet in the evening. ondansetron 2021-0 Yes [id number] 4mg Take 1 [facility] 4 mg 8-29 tablet by ity of disintegrat 00:00: mouth [place] ing tablet 00 every 8 Medica l (eight) Branch hours as needed for Nausea and Vomiting (N/V). acetaminoph 2021-0 Yes [id number] 650mg Take 1 [facility] en (TYLENOL 8-29 tablet by ity of ARTHRITIS 00:00: mouth [place] PAIN) 650 00 every 8 Medical mg CR (eight) Branch tablet hours as needed for Pain. ketorolac 2021-0 Yes [id number] 10mg Take 1 U nivers 10 mg 8-29 tablet by ity of tablet 00:00: mouth [place] 00 every 6 Medical (six) Branch hours as needed for Pain (scale 4-6) or Pain (scale 7-10). metaxalone 2-0 Yes [id number] 800mg Take 1 [facility] (SKELAXIN) 8-29 tablet by ity of 800 mg 00:00: mouth in [place] tablet 00 the Medical morning Branch and 1 tablet at noon and 1 tablet in the evening. ondansetron 2022-0 Yes [id number] 4mg Take 1 [facility] 4 mg 8-29 tablet by ity of disintegrat 00:00: mouth [place] ing tablet 00 every 8 Medica l (eight) Branch hours as needed for Nausea and Vomiting (N/V). acetaminoph 2022-0 Yes [id number] 650mg Take 1 [facility] en (TYLENOL 8-29 tablet by ity of ARTHRITIS 00:00: mouth [place] PAIN) 650 00 every 8 Medical mg CR (eight) Branch tablet hours as needed for Pain. ketorolac 2021-0 Yes [id number] 10mg Take 1 U nivers 10 mg 8-29 tablet by ity of tablet 00:00: mouth [place] 00 every 6 Medical (six) Branch hours as needed for Pain (scale 4-6) or Pain (scale 7-10). metaxalone 2021-0 Yes [id number] 800mg Take 1 [facility] (SKELAXIN) 8-29 tablet by ity of 800 mg 00:00: mouth in [place] tablet 00 the Medical morning Branch and 1 tablet at noon and 1 tablet in the evening. acetaminoph 2021-0 Yes [id number] 650mg Take 1 [facility] en (TYLENOL 8-29 tablet by ity of ARTHRITIS 00:00: mouth [place] PAIN) 650 00 every 8 Medical mg CR (eight) Branch tablet hours as needed for Pain. acetaminoph 2021-0 Yes [id number] 650mg Take 1 [facility] en (TYLENOL 8-29 tablet by ity of ARTHRITIS 00:00: mouth [place] PAIN) 650 00 every 8 Medical mg CR (eight) Branch tablet hours as needed for Pain. acetaminoph 0 Yes [id number] 650mg Take 1 [facility] en (TYLENOL 8-29 tablet by ity of ARTHRITIS 00:00: mouth [place] PAIN) 650 00 every 8 Medical mg CR (eight) Branch tablet hours as needed for Pain. acetaminoph 2021-0 Yes [id number] 650mg Take 1 [facility] en (TYLENOL 8-29 tablet by ity of ARTHRITIS 00:00: mouth [place] PAIN) 650 00 every 8 Medical mg CR (eight) Branch tablet hours as needed for Pain. acetaminoph 0 Yes [id number] 650mg Take 1 [facility] en (TYLENOL 8-29 tablet by ity of ARTHRITIS 00:00: mouth [place] PAIN) 650 00 every 8 Medical mg CR (eight) Branch tablet hours as needed for Pain. acetaminoph 2021-0 Yes [id number] 650mg Take 1 [facility] en (TYLENOL 8-29 tablet by ity of ARTHRITIS 00:00: mouth [place] PAIN) 650 00 every 8 Medical mg CR (eight) Branch tablet hours as needed for Pain. acetaminoph 2021-0 Yes [id number] 650mg Take 1 [facility] en (TYLENOL 8-29 tablet by ity of ARTHRITIS 00:00: mouth [place] PAIN) 650 00 every 8 Medical mg CR (eight) Branch tablet hours as needed for Pain. acetaminoph 2021-0 Yes [id number] 650mg Take 1 [facility] en (TYLENOL 8-29 tablet by ity of ARTHRITIS 00:00: mouth [place] PAIN) 650 00 every 8 Medical mg CR (eight) Branch tablet hours as needed for Pain. acetaminoph 0 Yes [id number] 650mg Take 1 [facility] en (TYLENOL 8-29 tablet by ity of ARTHRITIS 00:00: mouth [place] PAIN) 650 00 every 8 Medical mg CR (eight) Branch tablet hours as needed for Pain. acetaminoph 0 Yes [id number] 650mg Take 1 [facility] en (TYLENOL 8-29 tablet by ity of ARTHRITIS 00:00: mouth [place] PAIN) 650 00 every 8 Medical mg CR (eight) Branch tablet hours as needed for Pain. acetaminoph 0 Yes [id number] 650mg Take 1 [facility] en (TYLENOL 8-29 tablet by ity of ARTHRITIS 00:00: mouth [place] PAIN) 650 00 every 8 Medical mg CR (eight) Branch tablet hours as needed for Pain. acetaminoph 0 Yes [id number] 650mg Take 1 [facility] en (TYLENOL 8-29 tablet by ity of ARTHRITIS 00:00: mouth [place] PAIN) 650 00 every 8 Medical mg CR (eight) Branch tablet hours as needed for Pain. acetaminoph 0 Yes [id number] 650mg Take 1 [facility] en (TYLENOL 8-29 tablet by ity of ARTHRITIS 00:00: mouth [place] PAIN) 650 00 every 8 Medical mg CR (eight) Branch tablet hours as needed for Pain. acetaminoph 0 Yes [id number] 650mg Take 1 [facility] en (TYLENOL 8-29 tablet by ity of ARTHRITIS 00:00: mouth [place] PAIN) 650 00 every 8 Medical mg CR (eight) Branch tablet hours as needed for Pain. acetaminoph 0 Yes [id number] 650mg Take 1 [facility] en (TYLENOL 8-29 tablet by ity of ARTHRITIS 00:00: mouth [place] PAIN) 650 00 every 8 Medical mg CR (eight) Branch tablet hours as needed for Pain. acetaminoph 2021-0 Yes [id number] 650mg Take 1 [facility] en (TYLENOL 8-29 tablet by ity of ARTHRITIS 00:00: mouth [place] PAIN) 650 00 every 8 Medical mg CR (eight) Branch tablet hours as needed for Pain. acetaminoph 2021-0 Yes [id number] 650mg Take 1 [facility] en (TYLENOL 8-29 tablet by ity of ARTHRITIS 00:00: mouth [place] PAIN) 650 00 every 8 Medical mg CR (eight) Branch tablet hours as needed for Pain. acetaminoph 2- No [id number] 650mg Take 1 [facility] en (TYLENOL 8-29 11-26 tablet by it y of ARTHRITIS 00:00: 00:00 mouth [place] PAIN) 650 00 :00 every 8 Medical mg CR (eight) Branch tablet hours as needed for Pain. ondansetron 2021-0 2- No [id number] 4mg Take 1 [facility] 4 mg 8-29 10-18 tablet by ity of disintegrat 00:00: 00:00 [place] tablet 00 :00 every 8 Medica l (eight) Branch hours as needed for Nausea and Vomiting (N/V). ketorolac 2021-0 2021- No [id number] 10mg Take 1 [facility] 10 mg 8-29 10-18 tablet by ity of tablet 00:00: 00:00 mouth [place] 00 :00 every 6 Medical (six) Branch hours as needed for Pain (scale 4-6) or Pain (scale 7-10). metaxalone 2021-0 2021- No [id number] 800mg Take 1 [facility] (SKELAXIN) 8-29 10-18 tablet by ity of 800 mg 00:00: 00:00 mouth in [place] tablet 00 :00 the Medical morning Branch and 1 tablet at noon and 1 tablet in the evening. ondansetron 2021-0 2021- No [id number] 4mg Take 1 [facility] 4 mg 8-29 10-18 tablet by ity of disintegrat 00:00: 00:00 [place] tablet 00 :00 every 8 Medica l (eight) Branch hours as needed for Nausea and Vomiting (N/V). ketorolac 2-0 2- No [id number] 10mg Take 1 [facility] 10 mg 8-29 10-18 tablet by ity of tablet 00:00: 00:00 mouth [place] 00 :00 every 6 Medical (six) Branch hours as needed for Pain (scale 4-6) or Pain (scale 7-10). metaxalone 2022-0 2022- No [id number] 800mg Take 1 [facility] (SKELAXIN) 8-29 10-18 tablet by ity of 800 mg 00:00: 00:00 mouth in [place] tablet 00 :00 the Medical morning Branch and 1 tablet at noon and 1 tablet in the evening. ondansetron 2022-0 2022- No [id number] 4mg Take 1 [facility] 4 mg 8-29 10-18 tablet by ity of disintegrat 00:00: 00:00 [place] tablet 00 :00 every 8 Medica l (eight) Branch hours as needed for Nausea and Vomiting (N/V). ketorolac 2022-0 2022- No [id number] 10mg Take 1 [facility] 10 mg 8-29 10-18 tablet by ity of tablet 00:00: 00:00 mouth [place] 00 :00 every 6 Medical (six) Branch hours as needed for Pain (scale 4-6) or Pain (scale 7-10). metaxalone 2021-0 2021- No [id number] 800mg Take 1 [facility] (SKELAXIN) 8-29 10-18 tablet by ity of 800 mg 00:00: 00:00 mouth in [place] tablet 00 :00 the Medical morning Branch and 1 tablet at noon and 1 tablet in the evening. ondansetron 2022-0 2021- No [id number] 4mg Take 1 [facility] 4 mg 8-29 10-18 tablet by ity of disintegrat 00:00: 00:00 [place] tablet 00 :00 every 8 Medica l (eight) Branch hours as needed for Nausea and Vomiting (N/V). ketorolac 2022-0 2022- No [id number] 10mg Take 1 [facility] 10 mg 8-29 10-18 tablet by ity of tablet 00:00: 00:00 mouth [place] 00 :00 every 6 Medical (six) Branch hours as needed for Pain (scale 4-6) or Pain (scale 7-10). metaxalone 2022-0 2022- No [id number] 800mg Take 1 [facility] (SKELAXIN) 8-29 10-18 [...] No Take by Un sushant ietary 8- 08- mouth. ity of supp. no.8 15:08: 00:00 [place] (TRAZAMINE 46 :00 Medical ORAL) Branch diphenhydrA 0 Yes 25mg Take 25 mg Univers MINE 25 mg 12-12 by mouth ity o f capsule 13:03: every 6 [place] 04 (six) Medical hours as Branch needed for Allergies. carbamazepi 0 Yes Take by Uni vers ne 8 mouth. ity of (TEGRETOL 13:03: [place] ORAL) 04 Medical Branch citalopram Yes Take by [place] [...] hydrobromid 8-02 mouth. ity of e 13:03: [place] (CITALOPRAM 04 Medical ORAL) Branch ALBUTEROL Yes Univers INHALE 8 ity of 13:03: Medical Branch diphenhydrA Yes 25mg Take 25 mg [facility] MINE 25 mg 02 by mouth ity o f capsule 13:03: every 6 [place] [address] (six) Medical hours as Branch needed for Allergies. carbamazepi Yes Take by Uni vers ne 8-02 mouth. ity of (TEGRETOL 13:03: [place] ORAL) Medical Branch citalopram Yes Take by Univ ers hydrobromid 8-02 mouth. ity of e 13:03: [place] (CITALOPRAM 04 Medical ORAL) Branch ALBUTEROL Yes [facility] INHALE 12-12 ity of 13:03: [place] [address] Medical Branch diphenhydrA Yes 25mg Take 25 mg [facility] MINE 25 mg 12-12 by mouth ity o f capsule 13:03: every 6 [place] [address] (six) Medical hours as Branch needed for Allergies. carbamazepi Yes Take by Uni vers ne 8-02 mouth. ity of (TEGRETOL 13:03: [place] ORAL) Medical Branch citalopram Yes Take by Univ ers hydrobromid 8-02 mouth. ity of e 13:03: [place] (CITALOPRAM 04 Medical ORAL) Branch ALBUTEROL Yes [facility] INHALE 12-12 ity of 13:03: [place] [address] Medical Branch diphenhydrA Yes 25mg Take 25 mg [facility] MINE 25 mg 02 by mouth ity o f capsule 13:03: every 6 [place] [address] (six) Medical hours as Branch needed for Allergies. carbamazepi Yes Take by Uni vers ne 8-02 mouth. ity of (TEGRETOL 13:03: [place] ORAL) 04 Medical Branch citalopram Yes Take by [facility] ers hydrobromid 8-02 mouth. ity of e 13:03: [place] (CITALOPRAM 04 Medical ORAL) Branch ALBUTEROL Yes Univers INHALE 8 ity of 13:03: [place] [address] Medical Branch diphenhydrA Yes 25mg Take 25 mg Univers MINE 25 mg 8-02 by mouth ity o f capsule 13:03: every 6 [place] [address] (six) Medical hours as Branch needed for Allergies. carbamazepi Yes Take by Uni vers ne 8-02 mouth. ity of (TEGRETOL 13:03: [place] ORAL) Medical Branch citalopram Yes Take by Univ ers hydrobromid 8- mouth. ity of e 13:03: [place] (CITALOPRAM 04 Medical ORAL) Branch ALBUTEROL 0 Yes [facility] INHALE 8 ity of 13:03: Medical Branch diphenhydrA Yes 25mg Take 25 mg [facility] MINE 25 mg 12-12 by mouth ity o f capsule 13:03: every 6 [place] [address] (six) Medical hours as Branch needed for Allergies. carbamazepi Yes Take by Uni vers ne 8- mouth. ity of (TEGRETOL 13:03: [place] ORAL) Medical Branch citalopram Yes Take by [facility] ers hydrobromid 8- mouth. ity of e 13:03: [place] (CITALOPRAM 04 Medical ORAL) Branch ALBUTEROL Yes [facility] INHALE 12-12 ity of 13:03: [place] [address] Medical Branch diphenhydrA Yes 25mg Take 25 mg [facility] MINE 25 mg 12-12 by mouth ity o f capsule 13:03: every 6 [place] [address] (six) Medical hours as Branch needed for Allergies. carbamazepi Yes Take by Uni vers ne 8- mouth. ity of (TEGRETOL 13:03: [place] ORAL) Medical Branch citalopram Yes Take by [facility] ers hydrobromid 8-02 mouth. ity of e 13:03: [place] (CITALOPRAM 04 Medical ORAL) Branch ALBUTEROL 0 Yes [facility] INHALE 8 ity of 13:03: [place] [address] Medical Branch diphenhydrA Yes 25mg Take 25 mg [facility] MINE 25 mg 802 by mouth ity o f capsule 13:03: every 6 [place] [address] (six) Medical hours as Branch needed for Allergies. carbamazepi 0 Yes Take by Uni vers ne 8-02 mouth. ity of (TEGRETOL 13:03: [place] ORAL) Medical Branch citalopram Yes Take by [facility] ers hydrobromid 8-02 mouth. ity of e 13:03: [place] (CITALOPRAM 04 Medical ORAL) Branch ALBUTEROL 0 Yes [facility] INHALE 8-02 ity of 13:03: [address] Branch diphenhydrA 0 Yes 25mg Take 25 mg [facility] MINE 25 mg 802 by mouth ity o f capsule 13:03: every 6 [place] [address] (six) Medical hours as Branch needed for Allergies. carbamazepi 0 Yes Take by Uni vers ne 8-02 mouth. ity of (TEGRETOL 13:03: [place] ORAL) Medical Branch citalopram Yes Take by [facility] ers hydrobromid 8-02 mouth. ity of e 13:03: [place] (CITALOPRAM 04 Medical ORAL) [place] ALBUTEROL Yes [facility] INHALE 8- ity of 13:03: [address] diphenhydrA Yes 25mg Take 25 mg [facility] MINE 25 mg 02 by mouth ity o f capsule 13:03: every 6 [place] [address] (six) Medical hours as Branch needed for Allergies. carbamazepi 0 Yes Take by Uni vers ne 8-02 mouth. ity of (TEGRETOL 13:03: [place] ORAL) [address] [place] [address] citalopram Yes Take by [facility] ers hydrobromid 8-02 mouth. ity of e 13:03: [place] (CITALOPRAM 04 Medical ORAL) Branch ALBUTEROL Yes [facility] INHALE 8-02 ity of 13:03: [address] Branch ALBUTEROL Yes [facility] INHALE 8-02 ity of 13:03: [address] Branch ALBUTEROL Yes [facility] INHALE 8-02 ity of 13:03: [address] ALBUTEROL 0 Yes [facility] INHALE 8-02 ity of 13:03: [address] ALBUTEROL 0 Yes [facility] INHALE 8-02 ity of 13:03: [place] [facility] ALBUTEROL Yes Univers INHALE 8-02 ity of 13:03: [address] ALBUTEROL Yes [facility] INHALE 8-02 ity of 13:03: [place] [facility] ALBUTEROL Yes [facility] INHALE 8-02 ity of 13:03: [place] [facility] ALBUTEROL Yes Univers INHALE 8-02 ity of 13:03: [place] [facility] ALBUTEROL Yes [facility] INHALE 8-02 ity of 13:03: [place] [facility] ALBUTEROL Yes [facility] INHALE 8-02 ity of 13:03: [place] [facility] ALBUTEROL Yes [facility] INHALE 8-02 ity of 13:03: [place] [facility] ALBUTEROL Yes Univers INHALE 8-02 ity of 13:03: [place] [facility] ALBUTEROL Yes [facility] INHALE 8-02 ity of 13:03: [place] [facility] ALBUTEROL Yes Univers INHALE 8-02 ity of 13:03: [place] [facility] traZODone Yes [id number] 50mg Take 1 U nivers 50 mg 8-02 tablet by ity of tablet 00:00: mouth at [place] 00 bedtime. Medical Branch SERTraline Yes [id number] 50mg Take 1 Univers (ZOLOFT) 50 8-02 tablet by ity of mg tablet 00:00: mouth [place] 00 the Medical morning. Branch traZODone Yes [id number] 50mg Take 1 U nivers 50 mg 8-02 tablet by ity of tablet 00:00: mouth at [place] 00 bedtime. Medical Branch SERTraline Yes [id number] 50mg Take 1 Univers (ZOLOFT) 50 8-02 tablet by ity of mg tablet 00:00: mouth [place] 00 the Medical morning. Branch traZODone 0 Yes [id number] 50mg Take 1 U nivers 50 mg 8-02 tablet by ity of tablet 00:00: mouth at [place] 00 bedtime. Medical Branch SERTraline Yes [id number] 50mg Take 1 Univers (ZOLOFT) 50 8-02 tablet by ity of mg tablet 00:00: mouth [place] 00 the Medical morning. Branch traZODone 2021-0 Yes [id number] 50mg Take 1 U nivers 50 mg 8-02 tablet by ity of tablet 00:00: mouth at [place] 00 bedtime. Medical Branch SERTraline 2021-0 Yes 50mg Take 1 Univers (ZOLOFT) 50 8-02 tablet by ity of mg tablet 00:00: mouth [place] 00 the Medical morning. Branch traZODone 2021-0 Yes [id number] 50mg Take 1 U nivers 50 mg 8-02 tablet by ity of tablet 00:00: mouth at [place] 00 bedtime. Medical Branch SERTraline 2021-0 Yes 50mg Take 1 [facility] (ZOLOFT) 50 8-02 tablet by ity of mg tablet 00:00: mouth [place] 00 the Medical morning. Branch traZODone 2021-0 Yes [id number] 50mg Take 1 U nivers 50 mg 8-02 tablet by ity of tablet 00:00: mouth at [place] 00 bedtime. Medical Branch SERTraline 2021-0 Yes 50mg Take 1 Univers (ZOLOFT) 50 8-02 tablet by ity of mg tablet 00:00: mouth [place] 00 the Medical morning. Branch traZODone 2021-0 Yes [id number] 50mg Take 1 U nivers 50 mg 8-02 tablet by ity of tablet 00:00: mouth at [place] 00 bedtime. Medical Branch SERTraline 2021-0 Yes [id number] 50mg Take 1 Univers (ZOLOFT) 50 8-02 tablet by ity of mg tablet 00:00: mouth [place] 00 the Medical morning. Branch traZODone 2021-0 Yes [id number] 50mg Take 1 U nivers 50 mg 8-02 tablet by ity of tablet 00:00: mouth at [place] 00 bedtime. Medical Branch SERTraline 2021-0 Yes [id number] 50mg Take 1 Univers (ZOLOFT) 50 8-02 tablet by ity of mg tablet 00:00: mouth [place] 00 the Medical morning. Branch traZODone 2021-0 Yes [id number] 50mg Take 1 U nivers 50 mg 8-02 tablet by ity of tablet 00:00: mouth at [place] 00 bedtime. Medical Branch SERTraline Yes [id number] 50mg Take 1 Univers (ZOLOFT) 50 8-02 tablet by ity of mg tablet 00:00: mouth [place] 00 the Medical morning. Branch traZODone Yes [id number] 50mg Take 1 U nivers 50 mg 8-02 tablet by ity of tablet 00:00: mouth at [place] 00 bedtime. Medical Branch SERTraline Yes [id number] 50mg Take 1 Univers (ZOLOFT) 50 8-02 tablet by ity of mg tablet 00:00: mouth [place] 00 the Medical morning. Branch traZODone Yes [id number] 50mg Take 1 U nivers 50 mg 8-02 tablet by ity of tablet 00:00: mouth at [place] 00 bedtime. Medical Branch SERTraline Yes [id number] 50mg Take 1 Univers (ZOLOFT) 50 8-02 tablet by ity of mg tablet 00:00: mouth in [facility] 00 the Medical morning. Branch traZODone 2021- No [id number] 50mg Take 1 Univers 50 mg 8-02 10-18 tablet by ity of tablet 00:00: 00:00 mouth at [place] 00 :00 bedtime. Medical Branch SERTraline 2021- No [id number] 50mg Take 1 Univers (ZOLOFT) 50 8-02 10-18 tablet by it y of mg tablet 00:00: 00:00 mouth in [place] 00 :00 the Medical morning. Branch traZODone 2021- No [id number] 50mg Take 1 Univers 50 mg 8-02 10-18 tablet by ity of tablet 00:00: 00:00 mouth at [place] 00 :00 bedtime. Medical Branch SERTraline 2021- No [id number] 50mg Take 1 Univers (ZOLOFT) 50 8-02 10-18 tablet by it y of mg tablet 00:00: 00:00 mouth in [place] 00 :00 the Medical morning. Branch traZODone 2021- No [id number] 50mg Take 1 Univers 50 mg 8-02 10-18 tablet by ity of tablet 00:00: 00:00 mouth at [place] 00 :00 bedtime. Medical Branch SERTraline 2021- No [id number] 50mg Take 1 Univers (ZOLOFT) 50 8- 10-18 tablet by it y of mg tablet 00:00: 00:00 mouth in [place] 00 :00 the Medical morning. Branch traZODone 2021- No [id number] 50mg Take 1 Univers 50 mg 8- 10-18 tablet by ity of tablet 00:00: 00:00 mouth at [place] 00 :00 bedtime. Medical Branch SERTraline 2021- No [id number] 50mg Take 1 Univers (ZOLOFT) 50 8- 10-18 tablet by it y of mg tablet 00:00: 00:00 mouth in [place] 00 :00 the Medical morning. Branch sulfamethox 2021- No [id number] 1{tbl} Take 1 Univers azole-trime - 08-06 tablet by it y of thoprim 00:00: 04:59 mouth in [place] (BACTRIM 00 :00 the Medical DS) 800-160 morning Branc h mg per and 1 tablet tablet in the evening. Do all this for 3 days. ibuprofen 2021-0 Yes [id number] 600mg Take 1 [facility] 600 mg 7-15 tablet by ity of tablet 00:00: mouth [place] 00 every 6 Medical (six) Branch hours as needed for Pain (scale 4-6). ibuprofen 2021-0 Yes [id number] 600mg Take 1 [facility] 600 mg 7-15 tablet by ity of tablet 00:00: mouth [place] 00 every 6 Medical (six) Branch hours as needed for Pain (scale 4-6). ibuprofen 2021-0 Yes [id number] 600mg Take 1 [facility] 600 mg 7-15 tablet by ity of tablet 00:00: mouth [place] 00 every 6 Medical (six) Branch hours as needed for Pain (scale 4-6). ibuprofen 2021-0 Yes [id number] 600mg Take 1 [facility] 600 mg 7-15 tablet by ity of tablet 00:00: mouth [place] 00 every 6 Medical (six) Branch hours as needed for Pain (scale 4-6). ibuprofen 2021-0 Yes [id number] 600mg Take 1 [facility] 600 mg 7-15 tablet by ity of tablet 00:00: mouth [place] 00 every 6 Medical (six) Branch hours as needed for Pain (scale 4-6). ibuprofen 2022-0 Yes [id number] 600mg Take 1 [facility] 600 mg 7-15 tablet by ity of tablet 00:00: mouth [place] 00 every 6 Medical (six) Branch hours as needed for Pain (scale 4-6). ibuprofen 2022-0 Yes [id number] 600mg Take 1 [facility] 600 mg 7-15 tablet by ity of tablet 00:00: mouth [place] 00 every 6 Medical (six) Branch hours as needed for Pain (scale 4-6). ibuprofen 2022-0 Yes [id number] 600mg Take 1 [facility] 600 mg 7-15 tablet by ity of tablet 00:00: mouth [place] 00 every 6 Medical (six) Branch hours as needed for Pain (scale 4-6). ibuprofen 2022-0 Yes [id number] 600mg Take 1 [facility] 600 mg 7-15 tablet by ity of tablet 00:00: mouth [place] 00 every 6 Medical (six) Branch hours as needed for Pain (scale 4-6). ibuprofen 2022-0 Yes [id number] 600mg Take 1 [facility] 600 mg 7-15 tablet by ity of tablet 00:00: mouth [place] 00 every 6 Medical (six) Branch hours as needed for Pain (scale 4-6). ibuprofen 2022-0 Yes [id number] 600mg Take 1 [facility] 600 mg 7-15 tablet by ity of tablet 00:00: mouth [place] 00 every 6 Medical (six) Branch hours as needed for Pain (scale 4-6). ibuprofen 2022-0 2022- No [id number] 600mg Take 1 [facility] 600 mg 7-15 10-18 tablet by ity of tablet 00:00: 00:00 mouth [place] 00 :00 every 6 Medical (six) Branch hours as needed for Pain (scale 4-6). ibuprofen 2022-0 2022- No [id number] 600mg Take 1 [facility] 600 mg 7-15 10-18 tablet by ity of tablet 00:00: 00:00 mouth [place] 00 :00 every 6 Medical (six) Branch hours as needed for Pain (scale 4-6). ibuprofen 2022-0 2022- No [id number] 600mg Take 1 [facility] 600 mg 7-15 10-18 tablet by ity of tablet 00:00: 00:00 mouth [place] 00 :00 every 6 Medical (six) Branch hours as needed for Pain (scale 4-6). ibuprofen 2021- No [id number] 600mg Take 1 [facility] 600 mg 7-15 [...] Indication s: acute pain bromphenira 2021-0 Yes [id number] 5mL Take 5 mL Univers mine-pseudo 7-09 by mouth 4 it y of ephedrine-D 00:00: (four) [place] M (BROMFED 00 times Medical DM) 2-30-10 daily as Bran ch mg/5 mL needed for syrup Congestion /Allergies or Cough. naproxen 2021-0 Yes [id number] 500mg Take 1 U nivers 500 mg 7-09 tablet by ity of tablet 00:00: mouth [place] 00 every 8 Medical (eight) Branch hours as needed for Pain (scale 4-6). cyclobenzap 2021-0 Yes [id number] 10mg Take 1 Univers rine 10 mg 7-09 tablet by ity of tablet 00:00: mouth at [place] 00 bedtime as Medical needed for Branch Muscle Spasms. bromphenira 2021-0 Yes [id number] 5mL Take 5 mL Univers mine-pseudo 7-09 by mouth 4 it y of ephedrine-D 00:00: (four) [place] M (BROMFED 00 times Medical DM) 2-30-10 daily as Bran ch mg/5 mL needed for syrup Congestion /Allergies or Cough. naproxen 2021-0 Yes [id number] 500mg Take 1 U nivers 500 mg 7-09 tablet by ity of tablet 00:00: mouth [place] 00 every 8 Medical (eight) Branch hours as needed for Pain (scale 4-6). cyclobenzap 2021-0 Yes [id number] 10mg Take 1 Univers rine 10 mg 7-09 tablet by ity of tablet 00:00: mouth at [place] 00 bedtime as Medical needed for Branch Muscle Spasms. bromphenira 2021-0 Yes [id number] 5mL Take 5 mL [facility] mine-pseudo 7-09 by mouth 4 it y of ephedrine-D 00:00: (four) [place] M (BROMFED 00 times Medical DM) 2-30-10 daily as Bran ch mg/5 mL needed for syrup Congestion /Allergies or Cough. naproxen 2021-0 Yes [id number] 500mg Take 1 U nivers 500 mg 7-09 tablet by ity of tablet 00:00: mouth [place] 00 every 8 Medical (eight) Branch hours as needed for Pain (scale 4-6). cyclobenzap 2021-0 Yes [id number] 10mg Take 1 Univers rine 10 mg 7-09 tablet by ity of tablet 00:00: mouth at [place] 00 bedtime as Medical needed for Branch Muscle Spasms. bromphenira 2021-0 Yes [id number] 5mL Take 5 mL Univers mine-pseudo 7-09 by mouth 4 it y of ephedrine-D 00:00: (four) [place] M (BROMFED 00 times Medical DM) 2-30-10 daily as Bran ch mg/5 mL needed for syrup Congestion /Allergies or Cough. naproxen 2021-0 Yes [id number] 500mg Take 1 U nivers 500 mg 7-09 tablet by ity of tablet 00:00: mouth [place] 00 every 8 Medical (eight) Branch hours as needed for Pain (scale 4-6). cyclobenzap 2021-0 Yes [id number] 10mg Take 1 Univers rine 10 mg 7-09 tablet by ity of tablet 00:00: mouth at [place] 00 bedtime as Medical needed for Branch Muscle Spasms. bromphenira 2-0 Yes [id number] 5mL Take 5 mL Univers mine-pseudo 7-09 by mouth 4 it y of ephedrine-D 00:00: (four) [place] M (BROMFED 00 times Medical DM) 2-30-10 daily as Bran ch mg/5 mL needed for syrup Congestion /Allergies or Cough. naproxen 2022-0 Yes [id number] 500mg Take 1 U nivers 500 mg 7-09 tablet by ity of tablet 00:00: mouth [place] 00 every 8 Medical (eight) Branch hours as needed for Pain (scale 4-6). cyclobenzap 2021-0 Yes [id number] 10mg Take 1 Univers rine 10 mg 7-09 tablet by ity of tablet 00:00: mouth at [place] 00 bedtime as Medical needed for Branch Muscle Spasms. bromphenira 2021-0 Yes [id number] 5mL Take 5 mL Univers mine-pseudo 7-09 by mouth 4 it y of ephedrine-D 00:00: (four) [place] M (BROMFED 00 times Medical DM) 2-30-10 daily as Bran ch mg/5 mL needed for syrup Congestion /Allergies or Cough. naproxen 2021-0 Yes [id number] 500mg Take 1 U nivers 500 mg 7-09 tablet by ity of tablet 00:00: mouth [place] 00 every 8 Medical (eight) Branch hours as needed for Pain (scale 4-6). cyclobenzap 2021-0 Yes [id number] 10mg Take 1 Univers rine 10 mg 7-09 tablet by ity of tablet 00:00: mouth at [place] 00 bedtime as Medical needed for Branch Muscle Spasms. bromphenira 2021-0 Yes [id number] 5mL Take 5 mL Univers mine-pseudo 7-09 by mouth 4 it y of ephedrine-D 00:00: (four) [place] M (BROMFED 00 times Medical DM) 2-30-10 daily as Bran ch mg/5 mL needed for syrup Congestion /Allergies or Cough. naproxen 2-0 Yes [id number] 500mg Take 1 U nivers 500 mg 7-09 tablet by ity of tablet 00:00: mouth [place] 00 every 8 Medical (eight) Branch hours as needed for Pain (scale 4-6). cyclobenzap 2022-0 Yes [id number] 10mg Take 1 Univers rine 10 mg 7-09 tablet by ity of tablet 00:00: mouth at [place] 00 bedtime as Medical needed for Branch Muscle Spasms. bromphenira 2022-0 Yes [id number] 5mL Take 5 mL Univers mine-pseudo 7-09 by mouth 4 it y of ephedrine-D 00:00: (four) [place] M (BROMFED 00 times Medical DM) 2-30-10 daily as Bran ch mg/5 mL needed for syrup Congestion /Allergies or Cough. naproxen 2022-0 Yes [id number] 500mg Take 1 U nivers 500 mg 7-09 tablet by ity of tablet 00:00: mouth [place] 00 every 8 Medical (eight) Branch hours as needed for Pain (scale 4-6). cyclobenzap 2021-0 Yes [id number] 10mg Take 1 Univers rine 10 mg 7-09 tablet by ity of tablet 00:00: mouth at [place] 00 bedtime as Medical needed for Branch Muscle Spasms. bromphenira 202-0 Yes [id number] 5mL Take 5 mL Univers mine-pseudo 7-09 by mouth 4 it y of ephedrine-D 00:00: (four) [place] M (BROMFED 00 times Medical DM) 2-30-10 daily as Bran ch mg/5 mL needed for syrup Congestion /Allergies or Cough. naproxen 2021-0 Yes [id number] 500mg Take 1 U nivers 500 mg 7-09 tablet by ity of tablet 00:00: mouth [place] 00 every 8 Medical (eight) Branch hours as needed for Pain (scale 4-6). cyclobenzap 2021-0 Yes [id number] 10mg Take 1 Univers rine 10 mg 7-09 tablet by ity of tablet 00:00: mouth at [place] 00 bedtime as Medical needed for Branch Muscle Spasms. bromphenira 2021-0 Yes [id number] 5mL Take 5 mL [facility] mine-pseudo 7-09 by mouth 4 it y of ephedrine-D 00:00: (four) [place] M (BROMFED 00 times Medical DM) 2-30-10 daily as Bran ch mg/5 mL needed for syrup Congestion /Allergies or Cough. naproxen 2-0 Yes [id number] 500mg Take 1 U nivers 500 mg 7-09 tablet by ity of tablet 00:00: mouth [place] 00 every 8 Medical (eight) Branch hours as needed for Pain (scale 4-6). cyclobenzap 2022-0 Yes [id number] 10mg Take 1 Univers rine 10 mg 7-09 tablet by ity of tablet 00:00: mouth at [place] 00 bedtime as Medical needed for Branch Muscle Spasms. bromphenira 2022-0 Yes [id number] 5mL Take 5 mL Univers mine-pseudo 7-09 by mouth 4 it y of ephedrine-D 00:00: (four) [place] M (BROMFED 00 times Medical DM) 2-30-10 daily as Bran ch mg/5 mL needed for syrup Congestion /Allergies or Cough. naproxen 2021-0 Yes [id number] 500mg Take 1 U nivers 500 mg 7-09 tablet by ity of tablet 00:00: mouth [place] 00 every 8 Medical (eight) Branch hours as needed for Pain (scale 4-6). cyclobenzap 2021-0 Yes [id number] 10mg Take 1 Univers rine 10 mg 7-09 tablet by ity of tablet 00:00: mouth at [place] 00 bedtime as Medical needed for Branch Muscle Spasms. bromphenira 2021-0 Yes [id number] 5mL Take 5 mL [facility] mine-pseudo 7-09 by mouth 4 it y of ephedrine-D 00:00: (four) [place] M (BROMFED 00 times Medical DM) 2-30-10 daily as Bran ch mg/5 mL needed for syrup Congestion /Allergies or Cough. bromphenira 2021-0 Yes [id number] 5mL Take 5 mL Univers mine-pseudo 7-09 by mouth 4 it y of ephedrine-D 00:00: (four) [place] M (BROMFED 00 times Medical DM) 2-30-10 daily as Bran ch mg/5 mL needed for syrup Congestion /Allergies or Cough. bromphenira 2021-0 Yes [id number] 5mL Take 5 mL Univers mine-pseudo 7-09 by mouth 4 it y of ephedrine-D 00:00: (four) [place] M (BROMFED 00 times Medical DM) 2-30-10 daily as Bran ch mg/5 mL needed for syrup Congestion /Allergies or Cough. bromphenira 2021-0 Yes [id number] 5mL Take 5 mL Univers mine-pseudo 7-09 by mouth 4 it y of ephedrine-D 00:00: (four) [place] M (BROMFED 00 times Medical DM) 2-30-10 daily as Bran ch mg/5 mL needed for syrup Congestion /Allergies or Cough. bromphenira 2021-0 Yes [id number] 5mL Take 5 mL [facility] mine-pseudo 7-09 by mouth 4 it y of ephedrine-D 00:00: (four) [place] M (BROMFED 00 times Medical DM) 2-30-10 daily as Bran ch mg/5 mL needed for syrup Congestion /Allergies or Cough. bromphenira 2-0 Yes [id number] 5mL Take 5 mL [facility] mine-pseudo 7-09 by mouth 4 it y of ephedrine-D 00:00: (four) [place] M (BROMFED 00 times Medical DM) 2-30-10 daily as Bran ch mg/5 mL needed for syrup Congestion /Allergies or Cough. bromphenira 2022-0 Yes [id number] 5mL Take 5 mL [facility] mine-pseudo 7-09 by mouth 4 it y of ephedrine-D 00:00: (four) [place] M (BROMFED 00 times Medical DM) 2-30-10 daily as Bran ch mg/5 mL needed for syrup Congestion /Allergies or Cough. bromphenira 2021-0 Yes [id number] 5mL Take 5 mL [facility] mine-pseudo 7-09 by mouth 4 it y of ephedrine-D 00:00: (four) [place] M (BROMFED 00 times Medical DM) 2-30-10 daily as Bran ch mg/5 mL needed for syrup Congestion /Allergies or Cough. bromphenira 2-0 Yes [id number] 5mL Take 5 mL [facility] mine-pseudo 7-09 by mouth 4 it y of ephedrine-D 00:00: (four) [place] M (BROMFED 00 times Medical DM) 2-30-10 daily as Bran ch mg/5 mL needed for syrup Congestion /Allergies or Cough. bromphenira 2022-0 Yes [id number] 5mL Take 5 mL [facility] mine-pseudo 7-09 by mouth 4 it y of ephedrine-D 00:00: (four) [place] M (BROMFED 00 times Medical DM) 2-30-10 daily as Bran ch mg/5 mL needed for syrup Congestion /Allergies or Cough. bromphenira 2022-0 Yes [id number] 5mL Take 5 mL [facility] mine-pseudo 7-09 by mouth 4 it y of ephedrine-D 00:00: (four) [place] M (BROMFED 00 times Medical DM) 2-30-10 daily as Bran ch mg/5 mL needed for syrup Congestion /Allergies or Cough. bromphenira 2021-0 Yes [id number] 5mL Take 5 mL [facility] mine-pseudo 7-09 by mouth 4 it y of ephedrine-D 00:00: (four) [place] M (BROMFED 00 times Medical DM) 2-30-10 daily as Bran ch mg/5 mL needed for syrup Congestion /Allergies or Cough. bromphenira 2021-0 Yes [id number] 5mL Take 5 mL [facility] mine-pseudo 7-09 by mouth 4 it y of ephedrine-D 00:00: (four) [place] M (BROMFED 00 times Medical DM) 2-30-10 daily as Bran ch mg/5 mL needed for syrup Congestion /Allergies or Cough. bromphenira 2021-0 Yes [id number] 5mL Take 5 mL [facility] mine-pseudo 7-09 by mouth 4 it y of ephedrine-D 00:00: (four) [place] M (BROMFED 00 times Medical DM) 2-30-10 daily as Bran ch mg/5 mL needed for syrup Congestion /Allergies or Cough. bromphenira 2021- No [id number] 5mL Take 5 mL [facility] mine-pseudo 7-09 11-12 by mouth 4 i ty of ephedrine-D 00:00: 00:00 (four) [place] M (BROMFED 00 :00 times Medical DM) 2-30-10 daily as Bran ch mg/5 mL needed for syrup Congestion /Allergies or Cough. naproxen 2021- No [id number] 500mg Take 1 [facility] 500 mg 7-09 10-18 tablet by ity of tablet 00:00: 00:00 mouth [place] 00 :00 every 8 Medical (eight) Branch hours as needed for Pain (scale 4-6). cyclobenzap 2021-2021- No [id number] 10mg Take 1 Univers rine 10 mg 7-09 10-18 tablet by ity of tablet 00:00: 00:00 mouth at [place] 00 :00 bedtime as Medical needed for Branch Muscle Spasms. naproxen 2021-2021- No [id number] 500mg Take 1 [facility] 500 mg 7-09 10-18 tablet by ity of tablet 00:00: 00:00 mouth [place] 00 :00 every 8 Medical (eight) Branch hours as needed for Pain (scale 4-6). cyclobenzap 2021- No [id number] 10mg Take 1 Univers rine 10 mg 7- 10-18 tablet by ity of tablet 00:00: 00:00 mouth at [place] 00 :00 bedtime as Medical needed for Branch Muscle Spasms. naproxen 2021- No [id number] 500mg Take 1 [facility] 500 mg 7- 10-18 tablet by ity of tablet 00:00: 00:00 mouth [place] 00 :00 every 8 Medical (eight) Branch hours as needed for Pain (scale 4-6). cyclobenzap 2021- No [id number] 10mg Take 1 Univers rine 10 mg 7- 10-18 tablet by ity of tablet 00:00: 00:00 mouth at [place] 00 :00 bedtime as Medical needed for Branch Muscle Spasms. naproxen 2021- No [id number] 500mg Take 1 [facility] 500 mg 7- 10-18 tablet by ity of tablet 00:00: 00:00 mouth [place] 00 :00 every 8 Medical (eight) Branch hours as needed for Pain (scale 4-6). cyclobenzap 2021- No [id number] 10mg Take 1 Univers rine 10 mg 7- 10-18 tablet by ity of tablet 00:00: 00:00 mouth at [place] 00 :00 bedtime as Medical needed for Branch Muscle Spasms. ibuprofen Yes [id number] 605mg Take 30.25 Univers 100 mg/5 mL 6-15 mL by ity of oral 00:00: mouth [place] 00 every 6 Medica l (six) Branch hours as needed for Pain (scale 4-6) or Temp > 38.5 C. ibuprofen Yes [id number] 605mg Take 30.25 Univers 100 mg/5 mL 6-15 mL by ity of oral 00:00: mouth [place] suspension 00 every 6 Medica l (six) Branch hours as needed for Pain (scale 4-6) or Temp > 38.5 C. ibuprofen Yes [id number] 605mg Take 30.25 [facility] 100 mg/5 mL 6-15 mL by ity of oral 00:00: mouth [place] suspension 00 every 6 Medica l (six) Branch hours as needed for Pain (scale 4-6) or Temp > 38.5 C. ibuprofen 2022-0 Yes [id number] 605mg Take 30.25 [facility] 100 mg/5 mL 6-15 mL by ity of oral 00:00: mouth [place] suspension 00 every 6 Medica l (six) Branch hours as needed for Pain (scale 4-6) or Temp > 38.5 C. ibuprofen 202-0 Yes [id number] 605mg Take 30.25 [facility] 100 mg/5 mL 6-15 mL by ity of oral 00:00: mouth [place] suspension 00 every 6 Medica l (six) Branch hours as needed for Pain (scale 4-6) or Temp > 38.5 C. ibuprofen 2021-0 Yes [id number] 605mg Take 30.25 [facility] 100 mg/5 mL 6-15 mL by ity of oral 00:00: mouth [place] suspension 00 every 6 Medica l (six) Branch hours as needed for Pain (scale 4-6) or Temp > 38.5 C. ibuprofen 2021-0 Yes [id number] 605mg Take 30.25 [facility] 100 mg/5 mL 6-15 mL by ity of oral 00:00: mouth [place] suspension 00 every 6 Medica l (six) Branch hours as needed for Pain (scale 4-6) or Temp > 38.5 C. ibuprofen 2021-0 Yes [id number] 605mg Take 30.25 [facility] 100 mg/5 mL 6-15 mL by ity of oral 00:00: mouth [place] suspension 00 every 6 Medica l (six) Branch hours as needed for Pain (scale 4-6) or Temp > 38.5 C. ibuprofen 2022-0 Yes [id number] 605mg Take 30.25 [facility] 100 mg/5 mL 6-15 mL by ity of oral 00:00: mouth [place] suspension 00 every 6 Medica l (six) Branch hours as needed for Pain (scale 4-6) or Temp > 38.5 C. ibuprofen 2022-0 Yes [id number] 605mg Take 30.25 [facility] 100 mg/5 mL 6-15 mL by ity of oral 00:00: mouth [place] suspension 00 every 6 Medica l (six) Branch hours as needed for Pain (scale 4-6) or Temp > 38.5 C. ibuprofen 0 Yes [id number] 605mg Take 30.25 [facility] 100 mg/5 mL 6-15 mL by ity of oral 00:00: mouth [place] suspension 00 every 6 Medica l (six) Branch hours as needed for Pain (scale 4-6) or Temp > 38.5 C. ibuprofen 0 2021- No [id number] 605mg Take 30.25 [facility] 100 mg/5 mL 6-15 10-18 mL by ity of oral 00:00: 00:00 mouth [place] suspension 00 :00 every 6 Medica l (six) Branch hours as needed for Pain (scale 4-6) or Temp > 38.5 C. ibuprofen 2021-0 2021- No [id number] 605mg Take 30.25 [facility] 100 mg/5 mL 6-15 10-18 mL by ity of oral 00:00: 00:00 mouth [place] suspension 00 :00 every 6 Medica l (six) Branch hours as needed for Pain (scale 4-6) or Temp > 38.5 C. ibuprofen 0 2021- No [id number] 605mg Take 30.25 [facility] 100 mg/5 mL 6-15 10-18 mL by ity of oral 00:00: 00:00 mouth [place] suspension 00 :00 every 6 Medica l (six) Branch hours as needed for Pain (scale 4-6) or Temp > 38.5 C. ibuprofen 2021- No [id number] 605mg Take 30.25 [facility] 100 mg/5 mL 6-15 10-18 mL by ity of oral 00:00: 00:00 mouth [place] suspension 00 :00 every 6 Medica l (six) Branch hours as needed for Pain (scale 4-6) or Temp > 38.5 C. acetaminoph 2021- No [id number] 608mg Take 19 mL [facility] en 160 mg/5 6-15 08- by mouth ity of mL liquid 00:00: 00:00 [place] 6 [place] 00 :[place] (six) Medical hours as Branch needed for Fever. DULoxetine 0 Yes [facility] 60 mg 5-27 ity of capsule 00:00: Medical Branch DULoxetine 0 Yes [facility] 60 mg 5-27 ity of capsule 00:00: [place] 00 [facility] Branch DULoxetine 2-0 Yes [facility] 60 mg 5-27 ity of capsule 00:00: [place] 00 Medical Branch DULoxetine 2022-0 Yes [facility] 60 mg 5-27 ity of capsule 00:00: [place] 00 Medical Branch DULoxetine 2-0 Yes [facility] 60 mg 5-27 ity of capsule 00:00: [place] 00 Medical Branch DULoxetine 2022-0 Yes [facility] 60 mg 5-27 ity of capsule 00:00: [place] [address] Medical Branch DULoxetine 2022-0 Yes [facility] 60 mg 5-27 ity of capsule 00:00: [place] [address] Medical Branch DULoxetine 2-0 Yes [facility] 60 mg 5-27 ity of capsule 00:00: [place] [address] Medical Branch DULoxetine 2-0 Yes [facility] 60 mg 5-27 ity of capsule 00:00: [place] [address] Medical Branch DULoxetine 2-0 Yes [facility] 60 mg 5-27 ity of capsule 00:00: [place] [address] Medical Branch DULoxetine 2-0 Yes [facility] 60 mg 5-27 ity of capsule 00:00: [place] [address] Medical Branch DULoxetine 2021-0 2- No Univer s 60 mg 5-27 10-18 ity of capsule 00:00: 00:00 [place] 00 :00 Medical Branch DULoxetine 2-0 2022- No Univer s 60 mg 5-27 10-18 ity of capsule 00:00: 00:00 [place] 00 :00 Medical Branch DULoxetine 2-0 2022- No Univer s 60 mg 5-27 10-18 ity of capsule 00:00: 00:00 [place] 00 :00 Medical Branch DULoxetine 2022-0 2022- No Univer s 60 mg 5-27 10-18 ity of capsule 00:00: 00:00 [place] 00 :00 Medical Branch traZODone 2-0 2022- No [facility] 50 mg 5-27 08-02 ity of tablet 00:00: 00:00 [place] 00 :00 Medical Branch mometasone 2021-0 Yes [id number] 1{spray Use 1 [facility] 50 5-19 } [place] in ity of mcg/actuati 00:00: each [place] on nasal 00 nostril 2 Medica l spray (two) Branch times daily. mometasone 2021-0 Yes [id number] 1{spray Use 1 [facility] 50 5-19 } [place] in ity of mcg/actuati 00:00: each [place] on nasal 00 nostril 2 Medica l spray (two) Branch times daily. mometasone 2021-0 Yes [id number] 1{spray Use 1 [facility] 50 5-19 } [place] in ity of mcg/actuati 00:00: each [place] on nasal 00 nostril 2 Medica l spray (two) Branch times daily. mometasone 2021-0 Yes [id number] 1{spray Use 1 [facility] 50 5-19 } [place] in ity of mcg/actuati 00:00: each [place] on nasal 00 nostril 2 Medica l spray (two) Branch times daily. mometasone 2021-0 Yes [id number] 1{spray Use 1 [facility] 50 5-19 } [place] in ity of mcg/actuati 00:00: each [place] on nasal 00 nostril 2 Medica l spray (two) Branch times daily. mometasone 2021-0 Yes [id number] 1{spray Use 1 [facility] 50 5-19 } [place] in ity of mcg/actuati 00:00: each [place] on nasal 00 nostril 2 Medica l spray (two) Branch times daily. mometasone 2021-0 Yes [id number] 1{spray Use 1 [facility] 50 5-19 } [place] in ity of mcg/actuati 00:00: each [place] on nasal 00 nostril 2 Medica l spray (two) Branch times daily. mometasone 2021-0 Yes [id number] 1{spray Use 1 [facility] 50 5-19 } [place] in ity of mcg/actuati 00:00: each [place] on nasal 00 nostril 2 Medica l spray (two) Branch times daily. mometasone 2021-0 Yes [id number] 1{spray Use 1 [facility] 50 5-19 } [place] in ity of mcg/actuati 00:00: each [place] on nasal 00 nostril 2 Medica l spray (two) Branch times daily. mometasone 2021-0 Yes [id number] 1{spray Use 1 [facility] 50 5-19 } [place] in ity of mcg/actuati 00:00: each [place] on nasal 00 nostril 2 Medica l spray (two) Branch times daily. mometasone 2021-0 Yes [id number] 1{spray Use 1 [facility] 50 5-19 } [place] in ity of mcg/actuati 00:00: each [place] on nasal 00 nostril 2 Medica l spray (two) Branch times daily. mometasone 2021- No [id number] 1{spray Use 1 [facility] 50 5-19 10-18 } [place] in ity of mcg/actuati 00:00: 00:00 each [place] on nasal 00 :00 nostril 2 Medica l spray (two) Branch times daily. mometasone 2021- No [id number] 1{spray Use 1 [facility] 50 5-19 10-18 } [place] in ity of mcg/actuati 00:00: 00:00 each [place] on nasal 00 :00 nostril 2 Medica l spray (two) Branch times daily. mometasone 2021- No [id number] 1{spray Use 1 [facility] 50 5-19 10-18 } [place] in ity of mcg/actuati 00:00: 00:00 each [place] on nasal 00 :00 nostril 2 Medica l spray (two) Branch times daily. mometasone 2021- No [id number] 1{spray Use 1 [facility] 50 5-19 10-18 } [place] in ity of mcg/actuati 00:00: 00:00 each [place] on nasal 00 :00 nostril 2 Medica l spray (two) Branch times daily. cetirizine Yes [id number] 10mg Take 1 U nivers (ZYRTEC) 10 5-16 tablet by ity of mg tablet 00:00: mouth [place] 00 daily. Medical Branch cetirizine Yes [id number] 10mg Take 1 U nivers (ZYRTEC) 10 5-16 tablet by ity of mg tablet 00:00: mouth [place] 00 daily. Medical Branch cetirizine Yes [id number] 10mg Take 1 U nivers (ZYRTEC) 10 5-16 tablet by ity of mg tablet 00:00: mouth [place] 00 daily. Medical Branch cetirizine Yes [id number] 10mg Take 1 U nivers (ZYRTEC) 10 5-16 tablet by ity of mg tablet 00:00: mouth [place] 00 daily. Medical Branch cetirizine Yes [id number] 10mg Take 1 U nivers (ZYRTEC) 10 5-16 tablet by ity of mg tablet 00:00: mouth [place] 00 daily. [facility] Branch cetirizine Yes [id number] 10mg Take 1 U nivers (ZYRTEC) 10 5-16 tablet by ity of mg tablet 00:00: mouth [place] 00 daily. [facility] Branch cetirizine Yes [id number] 10mg Take 1 U nivers (ZYRTEC) 10 5-16 tablet by ity of mg tablet 00:00: mouth [place] 00 daily. [facility] Branch cetirizine Yes [id number] 10mg Take 1 U nivers (ZYRTEC) 10 5-16 tablet by ity of mg tablet 00:00: mouth [place] 00 daily. [facility] Branch cetirizine Yes [id number] 10mg Take 1 U nivers (ZYRTEC) 10 5-16 tablet by ity of mg tablet 00:00: mouth [place] 00 daily. [facility] Branch cetirizine Yes [id number] 10mg Take 1 U nivers (ZYRTEC) 10 5-16 tablet by ity of mg tablet 00:00: mouth [place] 00 daily. [facility] Branch cetirizine Yes [id number] 10mg Take 1 U nivers (ZYRTEC) 10 5-16 tablet by ity of mg tablet 00:00: mouth [place] 00 daily. [facility] cetirizine 2021- No [id number] 10mg Take 1 Univers (ZYRTEC) 10 5-16 10-18 tablet by it y of mg tablet 00:00: 00:00 mouth [place] 00 :00 daily. [facility] Branch cetirizine 2021- No [id number] 10mg Take 1 [facility] (ZYRTEC) 10 5-16 10-18 tablet by it y of mg tablet 00:00: 00:00 mouth [place] 00 :00 daily. [facility] cetirizine 2021- No [id number] 10mg Take 1 [facility] (ZYRTEC) 10 5-16 10-18 tablet by it y of mg tablet 00:00: 00:00 mouth [place] 00 :00 daily. [facility] cetirizine 2021- No [id number] 10mg Take 1 [facility] (ZYRTEC) 10 5-16 10-18 tablet by it y of mg tablet 00:00: 00:00 mouth [place] 00 :00 daily. Medical Branch DULoxetine 2022-0 Yes [facility] 30 mg 5-09 ity of capsule 00:00: [place] 00 Medical Branch gabapentin 2022-0 Yes [facility] 300 mg 5-09 ity of capsule 00:00: [place] 00 Medical Branch ondansetron 2022-0 Yes Univer s 4 mg tablet 5-09 ity of 00:00: [place] 00 Medical Branch DULoxetine 2022-0 Yes [facility] 30 mg 5-09 ity of capsule 00:00: [place] 00 Medical Branch gabapentin 2022-0 Yes [facility] 300 mg 5-09 ity of capsule 00:00: [place] 00 Medical Branch ondansetron 2022-0 Yes Univer s 4 mg tablet 5-09 ity of 00:00: [place] 00 Medical Branch DULoxetine 2022-0 Yes [facility] 30 mg 5-09 ity of capsule 00:00: [place] 00 Medical Branch gabapentin 2022-0 Yes [facility] 300 mg 5-09 ity of capsule 00:00: [place] 00 Medical Branch ondansetron 2022-0 Yes Univer s 4 mg tablet 5-09 ity of 00:00: [place] 00 Medical Branch DULoxetine 2022-0 Yes [facility] 30 mg 5-09 ity of capsule 00:00: [place] 00 Medical Branch gabapentin 2022-0 Yes [facility] 300 mg 5-09 ity of capsule 00:00: [place] 00 Medical Branch ondansetron 2022-0 Yes Univer s 4 mg tablet 5-09 ity of 00:00: [place] 00 Medical Branch DULoxetine 2022-0 Yes [facility] 30 mg 5-09 ity of capsule 00:00: [place] 00 Medical Branch gabapentin 2022-0 Yes [facility] 300 mg 5-09 ity of capsule 00:00: [place] 00 Medical Branch ondansetron 2022-0 Yes Univer s 4 mg tablet 5-09 ity of 00:00: [place] 00 Medical Branch DULoxetine 2022-0 Yes [facility] 30 mg 5-09 ity of capsule 00:00: [place] [address] Medical Branch gabapentin 2022-0 Yes [facility] 300 mg 5-09 ity of capsule 00:00: [place] 00 Medical Branch ondansetron 2022-0 Yes Univer s 4 mg tablet 5-09 ity of 00:00: [place] 00 Medical Branch DULoxetine 2022-0 Yes [facility] 30 mg 5-09 ity of capsule 00:00: [place] 00 Medical Branch gabapentin 2022-0 Yes [facility] 300 mg 5-09 ity of capsule 00:00: [place] 00 Medical Branch ondansetron 2022-0 Yes Univer s 4 mg tablet 5-09 ity of 00:00: [place] [address] Medical Branch DULoxetine 2022-0 Yes [facility] 30 mg 5-09 ity of capsule 00:00: [place] 00 Medical Branch gabapentin 2022-0 Yes [facility] 300 mg 5-09 ity of capsule 00:00: [place] [address] Medical Branch ondansetron 2022-0 Yes Univer s 4 mg tablet 5-09 ity of 00:00: [place] [address] Medical Branch DULoxetine 2022-0 Yes [facility] 30 mg 5-09 ity of capsule 00:00: [place] [address] Medical Branch gabapentin 2022-0 Yes [facility] 300 mg 5-09 ity of capsule 00:00: [place] [address] Medical Branch ondansetron 2022-0 Yes Univer s 4 mg tablet 5-09 ity of 00:00: [place] [address] Medical Branch DULoxetine 2022-0 Yes [facility] 30 mg 5-09 ity of capsule 00:00: [place] [address] Medical Branch gabapentin 2022-0 Yes [facility] 300 mg 5-09 ity of capsule 00:00: [place] 00 Medical Branch ondansetron 2022-0 Yes Univer s 4 mg tablet 5-09 ity of 00:00: [place] [address] Medical Branch DULoxetine 2022-0 Yes [facility] 30 mg 5-09 ity of capsule 00:00: [place] [address] Medical Branch gabapentin 2022-0 Yes [facility] 300 mg 5-09 ity of capsule 00:00: [place] 00 Medical Branch ondansetron 2022-0 Yes Univer s 4 mg tablet 5-09 ity of 00:00: [place] [address] Medical Branch DULoxetine 2022-0 2022- No Univer s 30 mg 5-01 20- ity of capsule 00:00: 00:00 [place] 00 :00 Medical Branch gabapentin 2022-0 2022- No Univer s 300 mg -02-27 ity of capsule 00:00: 00:00 [place] 00 :00 Medical Branch ondansetron 2022-0 2022- No Unive rs 4 mg tablet [id number] ity of 00:00: 00:00 [place] 00 :00 Medical Branch DULoxetine 2022-0 2- No Univer s 30 mg 09-18 ity of capsule 00:00: 00:00 [place] 00 :00 Medical Branch gabapentin 2022-0 2022- No Univer s 300 mg 09-18 ity of capsule 00:00: 00:00 [place] 00 :00 Medical Branch ondansetron 2022-0 2022- No Unive rs 4 mg tablet 09-18 ity of 00:00: 00:00 [place] 00 :00 Medical Branch DULoxetine 2022-0 2- No Univer s 30 mg 09-18 ity of capsule 00:00: 00:00 [place] 00 :00 Medical Branch gabapentin 2022-0 2- No Univer s 300 mg 09-18 ity of capsule 00:00: 00:00 [place] 00 :00 Medical Branch ondansetron 2022-0 2- No Unive rs 4 mg tablet 09-18 ity of 00:00: 00:00 [place] 00 :00 Medical Branch DULoxetine 2022-0 2- No Univer s 30 mg 09-18 ity of capsule 00:00: 00:00 [place] 00 :00 Medical Branch gabapentin 2022-0 2- No Univer s 300 mg 09-18 ity of capsule 00:00: 00:00 [place] 00 :00 Medical Branch ondansetron 2022-0 2- No Unive rs 4 mg tablet 09-18 ity of 00:00: 00:00 [place] 00 :00 Medical Branch amLODIPine 2022-0 Yes [facility] 5 mg tablet 4-22 ity of 00:00: [place] 00 Medical Branch amLODIPine 2022-0 Yes 5mg Take 5 mg Un sushant 5 mg tablet 4-22 by mouth. ity of 00:00: [place] 00 Medical Branch amLODIPine 2022-0 Yes Univers 5 mg tablet 4-22 ity of 00:00: [place] 00 Medical Branch amLODIPine 2022-0 Yes 5mg Take 5 mg Un sushant 5 mg tablet 4-22 by mouth. ity of 00:00: [place] 00 Medical Branch amLODIPine 2022-0 Yes Univers 5 mg tablet 4-22 ity of 00:00: [place] [address] Medical Branch amLODIPine 2022-0 Yes 5mg Take 5 mg Un sushant 5 mg tablet 4-22 by mouth. ity of 00:00: [place] [facility] Branch amLODIPine 2022-0 Yes Univers 5 mg tablet 4-22 ity of 00:00: [place] [facility] amLODIPine 2022-0 Yes 5mg Take 5 mg Un sushant 5 mg tablet 4-22 by mouth. ity of 00:00: [place] [facility] amLODIPine 2022-0 Yes Univers 5 mg tablet 4-22 ity of 00:00: [place] [facility] amLODIPine 2022-0 Yes 5mg Take 5 mg Un sushant 5 mg tablet 4-22 by mouth. ity of 00:00: [place] [facility] amLODIPine 2022-0 Yes Univers 5 mg tablet 4-22 ity of 00:00: [place] [facility] amLODIPine 2022-0 Yes 5mg Take 5 mg Un sushatn 5 mg tablet 4-22 by mouth. ity of 00:00: [place] [facility] amLODIPine 2022-0 Yes Univers 5 mg tablet 4-22 ity of 00:00: [place] [facility] amLODIPine 2022-0 Yes 5mg Take 5 mg Un sushant 5 mg tablet 4-22 by mouth. ity of 00:00: [place] [facility] amLODIPine 2022-0 Yes Univers 5 mg tablet 4-22 ity of 00:00: [place] [facility] amLODIPine 2022-0 Yes 5mg Take 5 mg Un sushant 5 mg tablet 4-22 by mouth. ity of 00:00: [place] [facility] amLODIPine 2022-0 Yes Univers 5 mg tablet 4-22 ity of 00:00: [place] [facility] amLODIPine 2022-0 Yes 5mg Take 5 mg Un sushant 5 mg tablet 4-22 by mouth. ity of 00:00: [place] [facility] amLODIPine 2022-0 Yes Univers 5 mg tablet 4-22 ity of 00:00: [place] [facility] amLODIPine 2022-0 Yes 5mg Take 5 mg Un sushant 5 mg tablet 4-22 by mouth. ity of 00:00: [place] [facility] amLODIPine 2022-0 Yes Univers 5 mg tablet 4-22 ity of 00:00: [place] [facility] amLODIPine 2022-0 Yes 5mg Take 5 mg Un sushant 5 mg tablet 4-22 by mouth. ity of 00:00: [place] 00 Medical Branch amLODIPine 2022-0 2022- No Univer s 5 mg tablet 09-0118 ity of 00:00: 00:00 [place] 00 :00 Medical Branch amLODIPine 2022-0 2022- No 5mg Take 5 mg U nivers 5 mg tablet 09-0118 by mouth. it y of 00:00: 00:00 [place] 00 :00 Medical Branch amLODIPine 2022-0 2022- No Univer s 5 mg tablet 09-0118 ity of 00:00: 00:00 [place] 00 :00 Medical Branch amLODIPine 2022-0 2022- No 5mg Take 5 mg U nivers 5 mg tablet 09-01 by mouth. it y of 00:00: 00:00 [place] 00 :00 Medical Branch amLODIPine 2022-0 2022- No Univer s 5 mg tablet 09-01 ity of 00:00: 00:00 [place] 00 :00 Medical Branch amLODIPine 2022-0 2022- No 5mg Take 5 mg U nivers 5 mg tablet 09-01 by mouth. it y of 00:00: 00:00 [place] 00 :00 Medical Branch amLODIPine 2022-0 2022- No Univer s 5 mg tablet 09-01 ity of 00:00: 00:00 [place] 00 :00 Medical Branch amLODIPine 2022-0 2022- No 5mg Take 5 mg U nivers 5 mg tablet 09-0118 by mouth. it y of 00:00: 00:00 [place] 00 :00 Medical Branch buPROPion 2-0 Yes [...] ity of 24 hr 00:00: [place] tablet [facility] Branch buPROPion 2022- No 150mg Take 150 Un sushant XL 150 mg 4-20 04-21 mg by ity of 24 hr 00:00: 04:59 mouth. [place] tablet 00 :00 [facility] Branch buPROPion 2022- No 150mg Take 150 Un sushant XL 150 mg 4-20 04-21 mg by ity of 24 hr 00:00: 04:59 mouth. [place] tablet 00 :00 [facility] Branch buPROPion 2022- No 150mg Take 150 Un ssuhant XL 150 mg 4-20 04-21 mg by ity of 24 hr 00:00: 04:59 mouth. [place] tablet 00 :00 [facility] Branch buPROPion 2022- No 150mg Take 150 Un sushant XL 150 mg 4-20 04-21 mg by ity of 24 hr 00:00: 04:59 mouth. [place] tablet 00 :00 Medical Branch buPROPion 2022- No 150mg Take 150 Un sushant XL 150 mg 4-20 04-21 mg by ity of 24 hr 00:00: 04:59 mouth. [place] tablet 00 :00 [facility] Branch buPROPion 2022- No 150mg Take 150 Un sushant XL 150 mg 4-20 04-21 mg by ity of 24 hr 00:00: 04:59 mouth. [place] tablet 00 :00 [facility] Branch buPROPion 2022- No 150mg [...] by ity o f 00:00: mouth 2 [place] 00 (two) Medical times Branch daily. carvediloL 2020-2021- No 25mg Take 1 Univ ers 25 mg 2-30 10-18 tablet by ity of tablet 00:00: 00:00 mouth 2 [place] 00 :00 (two) Medical times Branch daily with meals. losartan 50 2020-05- No 50mg Take 1 Uni vers mg tablet 2-30 10-18 tablet by ity of 00:00: 00:00 mouth 2 [place] 00 :00 (two) Medical times Branch daily. carvediloL 2020-05- No 25mg Take 1 Univ ers 25 mg 2-30 10-18 tablet by ity of tablet 00:00: 00:00 mouth 2 [place] 00 :00 (two) Medical times Branch daily with meals. losartan 50 2020-05- No 50mg Take 1 Uni vers mg tablet 2-30 10-18 tablet by ity of 00:00: 00:00 mouth 2 [place] 00 :00 (two) Medical times Branch daily. carvediloL 2020-05- No 25mg Take 1 Univ ers 25 mg 2-30 10-18 tablet by ity of tablet 00:00: 00:00 mouth 2 [place] 00 :00 (two) Medical times Branch daily with meals. losartan 50 2020-05- No 50mg Take 1 Uni vers mg tablet 2-30 10-18 tablet by ity of 00:00: 00:00 mouth 2 [place] 00 :00 (two) Medical times Branch daily. carvediloL 2020-05- No 25mg Take 1 Univ ers 25 mg 2-30 10-18 tablet by ity of tablet 00:00: 00:00 mouth 2 [place] 00 :00 (two) Medical times Branch daily with meals. losartan 50 2020-05- No 50mg Take 1 Uni vers mg tablet 2-30 10-18 tablet by ity of 00:00: 00:00 mouth 2 [place] 00 :00 (two) Medical times Branch daily. Immunizations Ordered Filled Immunization Date Status Comments [facility] e Immunization Name Name Influenza Virus 2022-02-27 Completed Universit y of Vaccine Quad IM, 00:00:00 [place] Me dical Preserv and ABX Branch Free [...] y of Vaccine Quad .5 mL 00:00:00 [facility] 6+ MO Branch Influenza Virus 2022-02-21 Completed Universit y of Vaccine Quad .5 mL 00:00:00 [facility] 6+ MO Branch Influenza Virus 2022-02-21 Completed Universit y of Vaccine Quad .5 mL 00:00:00 [facility] 6+ MO Branch Influenza Virus 2021-06-11 Completed Universit y of Vaccine 00:00:00 [facility] [place] [facility] Influenza Virus 2021-06-11 Completed Universit y of Vaccine 00:00:00 [facility] [place] [facility] Influenza Virus 2021-06-11 Completed Universit y of Vaccine 00:00:00 [facility] [place] [facility] Influenza Virus 2021-06-11 Completed Universit y of Vaccine 00:00:00 [facility] [place] [facility] Influenza Virus 2021-06-11 Completed Universit y of Vaccine 00:00:00 [facility] [place] [facility] Influenza Virus 2021-06-11 Completed Universit y of Vaccine 00:00:00 [facility] [place] [facility] Influenza Virus 2021-06-11 Completed Universit y of Vaccine 00:00:00 [facility] [place] [facility] Influenza Virus 2021-06-11 Completed Universit y of Vaccine 00:00:00 [facility] [place] [facility] Influenza Virus 2021-06-11 Completed Universit y of Vaccine 00:00:00 [facility] [place] [facility] Influenza Virus 2021-06-11 Completed Universit y of Vaccine 00:00:00 [facility] [place] [facility] Influenza Virus 2021-06-11 Completed Universit y of Vaccine 00:00:00 [facility] [place] [facility] Influenza Virus 2021-06-11 Completed Universit y of Vaccine 00:00:00 [facility] [place] [facility] Influenza Virus 2021-06-11 Completed Universit y of Vaccine 00:00:00 [facility] [place] [facility] Influenza Virus 2021-06-11 Completed Universit y of Vaccine 00:00:00 [facility] [place] [facility] Influenza Virus 2021-06-11 Completed Universit y of Vaccine 00:00:00 [facility] [place] [facility] Influenza Virus 2021-06-11 Completed Universit y of Vaccine 00:00:00 [facility] [place] [facility] Influenza Virus 2021-06-11 Completed Universit y of Vaccine 00:00:00 [facility] [place] [facility] Influenza Virus 2021-06-11 Completed Universit y of Vaccine 00:00:00 [facility] [place] [facility] Influenza Virus 2021-06-11 Completed Universit y of Vaccine 00:00:00 [facility] [place] [facility] Influenza Virus 2021-06-11 Completed Universit y of Vaccine 00:00:00 [facility] [place] [facility] Influenza Virus 2021-06-11 Completed Universit y of Vaccine 00:00:00 [facility] [place] [facility] Influenza Virus 2021-06-11 Completed Universit y of Vaccine 00:00:00 [facility] [place] [facility] Influenza Virus 2021-06-11 Completed Universit y of Vaccine 00:00:00 [facility] [place] [facility] Influenza Virus 2021-06-11 Completed Universit y of Vaccine 00:00:00 [facility] [place] [facility] Influenza Virus 2021-06-11 Completed Universit y of Vaccine 00:00:00 [facility] [place] [facility] Influenza Virus 2021-06-11 Completed Universit y of Vaccine 00:00:00 [facility] [place] [facility] Influenza Virus 2021-06-11 Completed Universit y of Vaccine 00:00:00 [facility] [place] [facility] Influenza Virus 2021-06-11 Completed Universit y of Vaccine 00:00:00 [facility] [place] [facility] Influenza Virus 2021-06-11 Completed Universit y of Vaccine 00:00:00 [facility] [place] [facility] Influenza Virus 2021-06-11 Completed Universit y of Vaccine 00:00:00 [facility] [place] [facility] Influenza Virus 2021-06-11 Completed Universit y of Vaccine 00:00:00 [facility] [place] [facility] Influenza Virus 2021-06-11 Completed Universit y of Vaccine 00:00:00 [facility] [place] [facility] Influenza Virus 2021-06-11 Completed Universit y of Vaccine 00:00:00 [facility] [place] [facility] Influenza Virus 2021-06-11 Completed Universit y of Vaccine 00:00:00 [facility] [place] [facility] Influenza Virus 2021-06-11 Completed Universit y of Vaccine 00:00:00 [facility] [place] [facility] Influenza Virus 2021-06-11 Completed Universit y of Vaccine 00:00:00 [facility] [place] [facility] Influenza Virus 2021-06-11 Completed Universit y of Vaccine 00:00:00 [facility] [place] [facility] Influenza Virus 2021-06-11 Completed Universit y of Vaccine 00:00:00 [facility] [place] [facility] Influenza Virus 2021-06-11 Completed Universit y of Vaccine 00:00:00 [facility] [facility] [facility] Influenza Virus 2021-06-11 Completed Universit y of Vaccine 00:00:00 [facility] Influenza Virus 2021-06-11 Completed Universit y of Vaccine 00:00:00 [facility] Influenza Virus 2021-06-11 Completed Universit y of Vaccine 00:00:00 [facility] Influenza Virus 2021-06-11 Completed Universit y of Vaccine 00:00:00 [facility] Influenza Virus 2021-06-11 Completed [facility]it y of Vaccine 00:00:00 [facility] Influenza Virus 2021-06-11 Completed Universit y of Vaccine 00:00:00 [facility] Influenza Virus 2021-06-11 Completed Universit y of Vaccine 00:00:00 [facility] Influenza Virus 2021-06-11 Completed [facility]it y of Vaccine 00:00:00 [facility] Influenza Virus 2021-06-11 Completed Universit y of Vaccine 00:00:00 [facility] Influenza Virus 2021-06-11 Completed Universit y of Vaccine Quad .5 mL 00:00:00 [facility] 6+ MO Branch Influenza Virus 2021-06-11 Completed Universit y of Vaccine 00:00:00 [facility] Influenza Virus 2021-06-11 Completed Universit y of Vaccine Quad .5 mL 00:00:00 [facility] 6+ MO Branch Influenza Virus 2021-06-11 Completed [facility]it y of Vaccine 00:00:00 [facility] Influenza Virus 2021-06-11 Completed Universit y of Vaccine Quad .5 mL 00:00:00 [facility] 6+ MO Branch Influenza Virus 2021-06-11 Completed [facility]it y of Vaccine 00:00:00 [facility] Influenza Virus 2021-06-11 Completed Universit y of Vaccine Quad .5 mL 00:00:00 [facility] 6+ MO Branch Influenza Virus 2021-06-11 Completed [facility]it y of Vaccine 00:00:00 [facility] Influenza Virus 2021-06-11 Completed Universit y of Vaccine Quad .5 mL 00:00:00 [facility] IM 6+ MO Branch Influenza Virus 2021-06-11 Completed [facility]it y of Vaccine 00:00:00 [facility] Influenza Virus 2021-06-11 Completed [facility]it y of Vaccine Quad .5 mL 00:00:00 [facility] 6[facility] Influenza Virus 2021-06-11 Completed [facility]it y of Vaccine 00:00:00 [facility] Influenza Virus 2021-06-11 Completed [facility]it y of Vaccine Quad .5 mL 00:00:00 [facility] 6[facility] MO [facility] Influenza Virus 2021-06-11 Completed [facility]it y of Vaccine 00:00:00 [facility] Influenza Virus 2021-06-11 Completed [facility]it y of Vaccine Quad .5 mL 00:00:00 [facility] 6+ MO Branch Influenza Virus 2021-06-11 Completed [facility]it y of Vaccine 00:00:00 [facility] Influenza Virus 2021-06-11 Completed [facility]it y of Vaccine Quad .5 mL 00:00:00 [facility] 6+ MO Branch Influenza Virus 2021-06-11 Completed [facility]it y of Vaccine 00:00:00 [facility] Influenza Virus 2021-06-11 Completed [facility]it y of Vaccine Quad .5 mL 00:00:00 [facility] 6+ MO Branch Influenza Virus 2021-06-11 Completed [facility]it y of Vaccine 00:00:00 [facility] Influenza Virus 2021-06-11 Completed [facility]it y of Vaccine Quad .5 mL 00:00:00 [facility] 6+ MO Branch Influenza Virus 2020-05-19 Completed [facility]it y of Vaccine 00:00:00 [facility] Influenza Virus 2020-05-19 Completed [facility]it y of Vaccine 00:00:00 [facility] Influenza Virus 2020-05-19 Completed [facility]it y of Vaccine 00:00:00 [facility] Influenza Virus 2020-05-19 Completed [facility]it y of Vaccine 00:00:00 [facility] Influenza Virus 2020-05-19 Completed [facility]it y of Vaccine 00:00:00 [facility] Influenza Virus 2020-05-19 Completed [facility]it y of Vaccine 00:00:00 [facility] Influenza Virus 2020-05-19 Completed [facility]it y of Vaccine 00:00:00 [facility] Influenza Virus 2020-05-19 Completed [facility]it y of Vaccine 00:00:00 [facility] Influenza Virus 2020-05-19 Completed [facility]it y of Vaccine 00:00:00 [facility] Influenza Virus 2020-05-19 Completed [facility]it y of Vaccine 00:00:00 [facility] Influenza Virus 2020-05-19 Completed [facility]it y of Vaccine 00:00:00 [facility] Influenza Virus 2020-05-19 Completed [facility]it y of Vaccine 00:00:00 [facility] Influenza Virus 2020-05-19 Completed [facility]it y of Vaccine 00:00:00 [facility] Influenza Virus 2020-05-19 Completed [facility]it y of Vaccine 00:00:00 [facility] Influenza Virus 2020-05-19 Completed [facility]it y of Vaccine 00:00:00 [facility] Influenza Virus 2020-05-19 Completed [facility]it y of Vaccine 00:00:00 [facility] Influenza Virus 2020-05-19 Completed [facility]it y of Vaccine 00:00:00 [facility] Influenza Virus 2020-05-19 Completed [facility]it y of Vaccine 00:00:00 [facility] Influenza Virus 2020-05-19 Completed [facility]it y of Vaccine 00:00:00 [facility] Influenza Virus 2020-05-19 Completed [facility]it y of Vaccine 00:00:00 [facility] Influenza Virus 2020-05-19 Completed [facility]it y of Vaccine 00:00:00 [facility] Influenza Virus 2020-05-19 Completed [facility]it y of Vaccine 00:00:00 [facility] Influenza Virus 2020-05-19 Completed [facility]it y of Vaccine 00:00:00 [facility] Influenza Virus 2020-05-19 Completed [facility]it y of Vaccine 00:00:00 [facility] Influenza Virus 2020-05-19 Completed [facility]it y of Vaccine 00:00:00 [facility] Influenza Virus 2020-05-19 Completed [facility]it y of Vaccine 00:00:00 [facility] Influenza Virus 2020-05-19 Completed [facility]it y of Vaccine 00:00:00 [facility] Influenza Virus 2020-05-19 Completed [facility]it y of Vaccine 00:00:00 [facility] Influenza Virus 2020-05-19 Completed [facility]it y of Vaccine 00:00:00 [facility] Influenza Virus 2020-05-19 Completed [facility]it y of Vaccine 00:00:00 [facility] Influenza Virus 2020-05-19 Completed [facility]it y of Vaccine 00:00:00 [facility] Influenza Virus 2020-05-19 Completed [facility]it y of Vaccine 00:00:00 [facility] Influenza Virus 2020-05-19 Completed [facility]it y of Vaccine 00:00:00 [facility] Influenza Virus 2020-05-19 Completed [facility] Vaccine 00:00:00 [facility] Influenza Virus 2020-05-19 Completed [facility]it y of Vaccine 00:00:00 [facility] Influenza Virus 2020-05-19 Completed [facility]it y of Vaccine 00:00:00 [facility] Influenza Virus 2020-05-19 Completed [facility]it y of Vaccine 00:00:00 [facility] Influenza Virus 2020-05-19 Completed [facility]it y of Vaccine 00:00:00 [facility] Influenza Virus 2020-05-19 Completed [facility]it y of Vaccine 00:00:00 [facility] Influenza Virus 2020-05-19 Completed [facility]it y of Vaccine 00:00:00 [facility] Influenza Virus 2020-05-19 Completed [facility]it y of Vaccine 00:00:00 [facility] Influenza Virus 2020-05-19 Completed [facility]it y of Vaccine 00:00:00 [facility] Influenza Virus 2020-05-19 Completed [facility]it y of Vaccine 00:00:00 [facility] Influenza Virus 2020-05-19 Completed [facility]it y of Vaccine 00:00:00 [facility] Influenza Virus 2020-05-19 Completed [facility]it y of Vaccine 00:00:00 [facility] Influenza Virus 2020-05-19 Completed [facility]it y of Vaccine 00:00:00 [facility] Influenza Virus 2020-05-19 Completed [facility]it y of Vaccine 00:00:00 [facility] Influenza Virus 2020-05-19 Completed [facility]it y of Vaccine 00:00:00 [facility] Influenza Virus 2020-05-19 Completed [facility]it y of Vaccine 00:00:00 [facility] Influenza Virus 2020-05-19 Completed [facility]it y of Vaccine 00:00:00 [facility] Influenza Virus 2020-05-19 Completed [facility]it y of Vaccine 00:00:00 [facility] Influenza Virus 2020-05-19 Completed [facility]it y of Vaccine 00:00:00 [facility] Influenza Virus 2020-05-19 Completed [facility]it y of Vaccine 00:00:00 [facility] Influenza Virus 2020-05-19 Completed [facility]it y of Vaccine 00:00:00 [facility] Influenza Virus 2020-05-19 Completed [facility]it y of Vaccine 00:00:00 [facility] Influenza Virus 2020-05-19 Completed [facility]it y of Vaccine 00:00:00 [facility] Influenza Virus 2020-05-19 Completed [facility]it y of Vaccine 00:00:00 [facility] Influenza Virus 2020-05-19 Completed [facility]it y of Vaccine 00:00:00 [facility] Influenza Virus 2020-05-16 Completed Universit y of Vaccine Recomb Quad 00:00:00 [facility] IM, Preserv and ABX Branc [...] Completed University of VACCINE 00:00:00 [facility] TDAP (ADACEL) 2019-05-21 Completed University of VACCINE 00:00:00 [facility] TDAP (ADACEL) 2019-05-21 Completed University of VACCINE 00:00:00 [facility] TDAP (ADACEL) 2019-05-21 Completed University of VACCINE 00:00:00 [facility] TDAP (ADACEL) 2019-05-21 Completed University of VACCINE 00:00:00 [facility] TDAP (ADACEL) 2019-05-21 Completed University of VACCINE 00:00:00 [facility] TDAP (ADACEL) 2019-05-21 Completed University of VACCINE 00:00:00 [facility] TDAP (ADACEL) 2019-05-21 Completed University of VACCINE 00:00:00 [facility] TDAP (ADACEL) 2019-05-21 Completed University of VACCINE 00:00:00 [facility] TDAP (ADACEL) 2019-05-21 Completed University of VACCINE 00:00:00 [facility] TDAP (ADACEL) 2019-05-21 Completed University of VACCINE 00:00:00 [facility] TDAP (ADACEL) 2019-05-21 Completed University of VACCINE 00:00:00 [facility] TDAP (ADACEL) 2019-05-21 Completed University of VACCINE 00:00:00 [facility] TDAP (ADACEL) 2019-05-21 Completed University of VACCINE 00:00:00 [facility] TDAP (ADACEL) 2019-05-21 Completed University of VACCINE 00:00:00 [facility] TDAP (ADACEL) 2019-05-21 Completed University of VACCINE 00:00:00 [facility] TDAP (ADACEL) 2019-05-21 Completed University of VACCINE 00:00:00 [facility] TDAP (ADACEL) 2019-05-21 Completed University of VACCINE 00:00:00 [facility] TDAP (ADACEL) 2019-05-21 Completed University of VACCINE 00:00:00 [facility] TDAP (ADACEL) 2019-05-21 Completed University of VACCINE 00:00:00 [facility] TDAP (ADACEL) 2019-05-21 Completed University of VACCINE 00:00:00 [facility] TDAP (ADACEL) 2019-05-21 Completed University of VACCINE 00:00:00 [facility] TDAP (ADACEL) 2019-05-21 Completed University of VACCINE 00:00:00 [facility] TDAP (ADACEL) 2019-05-21 Completed University of VACCINE 00:00:00 [facility] TDAP (ADACEL) 2019-05-21 Completed University of VACCINE 00:00:00 [facility] TDAP (ADACEL) 2019-05-21 Completed University of VACCINE 00:00:00 [facility] TDAP (ADACEL) 2019-05-21 Completed University of VACCINE 00:00:00 [facility] TDAP (ADACEL) 2019-05-21 Completed University of VACCINE 00:00:00 [facility] TDAP (ADACEL) 2019-05-21 Completed University of VACCINE 00:00:00 [facility] TDAP (ADACEL) 2019-05-21 Completed University of VACCINE 00:00:00 [facility] TDAP (ADACEL) 2019-05-21 Completed University of VACCINE 00:00:00 [facility] TDAP (ADACEL) 2019-05-21 Completed University of VACCINE 00:00:00 [facility] TDAP (ADACEL) 2019-05-21 Completed University of VACCINE 00:00:00 [facility] TDAP (ADACEL) 2019-05-21 Completed University of VACCINE 00:00:00 [facility] TDAP (ADACEL) 2019-05-21 Completed University of VACCINE 00:00:00 [facility] TDAP (ADACEL) 2019-05-21 Completed University of VACCINE 00:00:00 [facility] TDAP (ADACEL) 2019-05-21 Completed University of VACCINE 00:00:00 [facility] TDAP (ADACEL) 2019-05-21 Completed University of VACCINE 00:00:00 [facility] TDAP (ADACEL) 2019-05-21 Completed University of VACCINE 00:00:00 [facility] TDAP (ADACEL) 2019-05-21 Completed University of VACCINE 00:00:00 [facility] TDAP (ADACEL) 2019-05-21 Completed University of VACCINE 00:00:00 [facility] TDAP (ADACEL) 2019-05-21 Completed University of VACCINE 00:00:00 [facility] TDAP (ADACEL) 2019-05-21 Completed University of VACCINE 00:00:00 [facility] TDAP (ADACEL) 2019-05-21 Completed University of VACCINE 00:00:00 [facility] TDAP (ADACEL) 2019-05-21 Completed University of VACCINE 00:00:00 [facility] TDAP (ADACEL) 2019-05-21 Completed University of VACCINE 00:00:00 [facility] TDAP (ADACEL) 2019-05-21 Completed University of VACCINE 00:00:00 [facility] TDAP (ADACEL) 2019-05-21 Completed University of VACCINE 00:00:00 [facility] TDAP (ADACEL) 2019-05-21 Completed University of VACCINE 00:00:00 [facility] TDAP (ADACEL) 2019-05-21 Completed University of VACCINE 00:00:00 [facility] TDAP (ADACEL) 2019-05-21 Completed University of VACCINE 00:00:00 [facility] TDAP (ADACEL) 2019-05-21 Completed University of VACCINE 00:00:00 [facility] TDAP (ADACEL) 2019-05-21 Completed University of VACCINE 00:00:00 [facility] TDAP (ADACEL) 2019-05-21 Completed University of VACCINE 00:00:00 [facility] TDAP (ADACEL) 2019-05-21 Completed University of VACCINE 00:00:00 [facility] TDAP (ADACEL) 2019-05-21 Completed University of VACCINE 00:00:00 [facility] TDAP (ADACEL) 2019-05-21 Completed University of VACCINE 00:00:00 [facility] TDAP (ADACEL) 2019-05-21 Completed University of VACCINE 00:00:00 [facility] Influenza Virus 2019-02-06 Completed Universit y [...] y of Vaccine Quad .5 mL 00:00:00 [facility] Influenza Virus 2019-02-06 Completed [facility]it y of Vaccine Quad .5 mL 00:00:00 [facility]+ MO [facility] Influenza Virus 2019-02-06 Completed [facility]it y of Vaccine Quad .5 mL 00:00:00 [facility] 6+ [facility] Influenza Virus 2019-02-06 Completed [facility]it y of Vaccine Quad .5 mL 00:00:00 [facility]+ MO [facility] Influenza Virus 2019-02-06 Completed [facility]it y of Vaccine Quad .5 mL 00:00:00 [facility] 6+ [facility] Influenza Virus 2019-02-06 Completed [facility]it y of Vaccine Quad .5 mL 00:00:00 [facility]+ MO [facility] Influenza Virus 2019-02-06 Completed [facility]it y of Vaccine Quad .5 mL 00:00:00 [facility] 6+ [facility] Influenza Virus [...] y of Vaccine Quad .5 mL 00:00:00 [facility] 6+ [facility] Influenza Virus 2019-02-06 Completed [facility] y of Vaccine Quad .5 mL 00:00:00 [facility] Influenza Virus 2019-02-06 Completed [facility]it y of Vaccine Quad .5 mL 00:00:00 [facility] 6+ [facility] Influenza Virus 2019-02-06 Completed [facility] y of Vaccine Quad .5 mL 00:00:00 [facility] 6[facility] Influenza Virus 2019-02-06 Completed [facility]it y of Vaccine Quad .5 mL 00:00:00 [facility] 6+ MO [facility] Influenza Virus 2019-02-06 Completed [facility] y of Vaccine Quad .5 mL 00:00:00 [facility] 6[facility] Influenza Virus 2019-02-06 Completed [facility]it y of Vaccine Quad .5 mL 00:00:00 [facility] 6+ [facility] Influenza Virus 2019-02-06 Completed [facility]it y of Vaccine Quad .5 mL 00:00:00 [facility] 6+ [facility] Influenza Virus 2019-02-06 Completed [facility]it y of Vaccine Quad .5 mL 00:00:00 [facility]+ MO [facility] Influenza Virus 2019-02-06 Completed [facility]it y of Vaccine Quad .5 mL 00:00:00 [facility]+ MO [facility] Influenza Virus 2019-02-06 Completed [facility] y of Vaccine Quad .5 mL 00:00:00 [facility] 6+ MO [facility] Influenza Virus 2019-02-06 Completed [facility]it y of Vaccine Quad .5 mL 00:00:00 [facility]+ MO [facility] Influenza Virus 2019-02-06 Completed [facility]it y of Vaccine Quad .5 mL 00:00:00 [facility] 6+ MO [facility] Influenza Virus 2019-02-06 Completed [facility]it y of Vaccine Quad .5 mL 00:00:00 [facility] 6+ MO [facility] Influenza Virus 2019-02-06 Completed [facility]it y of Vaccine Quad .5 mL 00:00:00 [facility] 6[facility] MO [facility] Influenza Virus 2019-02-06 Completed [facility]it y of Vaccine Quad .5 mL 00:00:00 [facility] 6[facility] Influenza Virus 2019-02-06 Completed [facility]it y of Vaccine Quad .5 mL 00:00:00 [facility] 6+ MO [facility] Influenza Virus 2019-02-06 Completed [facility]it y of Vaccine Quad .5 mL 00:00:00 [facility]+ MO [facility] Influenza Virus 2019-02-06 Completed [facility]it y of Vaccine Quad .5 mL 00:00:00 [facility] 6[facility] Influenza Virus 2019-02-06 Completed [facility]it y of Vaccine Quad .5 mL 00:00:00 [facility] 6+ MO [facility] Influenza Virus [...] y of Vaccine Quad .5 mL 00:00:00 [facility] 6[facility] Influenza Virus 2019-02-06 Completed [facility]it y of Vaccine Quad .5 mL 00:00:00 [facility] 6[facility] Influenza Virus 2019-02-06 Completed [facility]it y of Vaccine Quad .5 mL 00:00:00 [facility] 6[facility] MO [facility] Influenza Virus 2019-02-06 Completed [facility]it y of Vaccine Quad .5 mL 00:00:00 [facility] 6[facility] Influenza Virus 2019-02-06 Completed [facility]it y of Vaccine Quad .5 mL 00:00:00 [facility] 6+ MO [facility] Influenza Virus [...] y of Vaccine Quad .5 mL 00:00:00 [facility] 6+ [facility] Influenza Virus [...] y of Vaccine Quad .5 mL 00:00:00 [facility] 6[facility] MO [facility] Influenza Virus 2019-02-06 Completed Universit y of Vaccine Quad .5 mL 00:00:00 [facility] IM 6+ MO Branch Vital Signs Vital Name Observation Time Observation Value Comments Source Systolic blood 2022-09-05 17:22:00 139 mm[Hg] Univer sity of pressure [facility] Diastolic blood 2022-09-05 17:22:00 91 mm[Hg] Unive rsity of [facility] Heart rate 2022-09-05 17:22:00 120 /min Universi ty [facility] Respiratory rate 2022-09-05 17:22:00 18 /min [facility] in 2022-09-05 17:22:00 99 /min [facility] Arterial blood by [facility] Pulse oximetry Branch Body temperature 2022-09-05 13:43:00 37.11 [facility] Body weight 2022-09-05 13:43:00 68.04 kg [facility] BMI 2022-09-05 13:43:00 28.34 kg/m2 [facility] Systolic blood 2022-08-01 00:49:00 138 mm[Hg] Univer sity of pressure [facility] Diastolic blood 2022-08-01 00:49:00 104 mm[Hg] Unive rsity of pressure [facility] Heart rate 2022-08-01 00:49:00 108 /min Universi ty [facility] Respiratory rate 2022-08-01 00:49:00 18 /min [facility] Oxygen saturation in 2022-08-01 00:49:00 99 /min University of Arterial blood by [facility] Pulse oximetry Branch Body temperature 2022-07-31 22:52:00 37.11 [facility] ersity of [facility] Body height 2022-07-31 22:52:00 154.9 cm Universi ty of [facility] Body weight 2022-07-31 22:52:00 68.04 kg Universi ty of [facility] BMI 2022-07-31 22:52:00 28.34 kg/m2 [facility]i ty of [facility] Systolic blood 2022-07-15 15:32:00 130 mm[Hg] Univer sity of pressure [facility] Diastolic blood 2022-07-15 15:32:00 90 mm[Hg] Unive rsity of pressure [facility] Heart rate 2022-07-15 15:31:00 81 /min [facility]i ty of [facility] Body temperature 2022-07-15 15:31:00 36.94 [facility] ersity of [facility] Respiratory rate 2022-07-15 15:31:00 16 /min Univ ersity of [facility] Body weight 2022-07-15 15:31:00 68.493 kg [facility]i ty of [facility] BMI 2022-07-15 15:31:00 28.53 kg/m2 [facility]i ty of [facility] Oxygen saturation in 2022-07-15 15:31:00 99 /min University of Arterial blood by [facility] Pulse oximetry Branch Systolic blood 2022-06-23 15:26:00 111 mm[Hg] Univer sity of pressure [facility] Diastolic blood 2022-06-23 15:26:00 75 mm[Hg] Unive rsity of pressure [facility] Heart rate 2022-06-23 15:26:00 108 /min [facility]i ty of [facility] Body temperature 2022-06-23 15:26:00 36.83 [facility] ersity of [facility] Respiratory rate 2022-06-23 15:26:00 18 /min Univ ersity of [facility] Body height 2022-06-23 15:26:00 154.9 cm [facility]i ty [facility] Body weight 2022-06-23 15:26:00 71.385 kg Universi ty of [facility] BMI 2022-06-23 15:26:00 29.74 kg/m2 [facility] ty [facility] Oxygen saturation in 2022-06-23 15:26:00 99 /min [facility] of Arterial blood by [facility] P[facility]xim[facility] Systolic blood 2022-05-05 22:05:00 126 mm[Hg] Univer sity of pressure [facility] Diastolic blood 2022-05-05 22:05:00 75 mm[Hg] Unive rsity of pressure [facility] Heart rate 2022-05-05 22:05:00 99 /min Universi ty of [facility] Respiratory rate 2022-05-05 22:05:00 16 /min [facility] Oxygen saturation in 2022-05-05 22:05:00 99 /min [facility] by [place] [facility] P[facility] oxim[facility] Body temperature 2022-05-05 18:24:00 37.11 Irene [facility] Body height 2022-05-05 18:24:00 154.9 cm [facility] Body weight 2022-05-05 18:24:00 54.432 kg [facility] BMI 2022-05-05 18:24:00 22.67 kg/m2 [facility] Systolic blood 2022-04-26 14:28:00 135 mm[Hg] [facility] [place] [facility] Diastolic blood 2022-04-26 14:28:00 95 mm[Hg] [facility] Heart rate 2022-04-26 14:28:00 93 /min [facility] Body temperature 2022-04-26 14:28:00 36.89 Irene [facility] Respiratory rate 2022-04-26 14:28:00 18 /min [facility] Body height 2022-04-26 14:28:00 154.9 cm [facility] Body weight 2022-04-26 14:28:00 54.432 kg [facility] BMI 2022-04-26 14:28:00 22.67 kg/m2 [facility] Oxygen saturation in 2022-04-26 14:28:00 100 /min [facility] by [place] [facility] Systolic blood 2022-04-26 00:21:00 151 mm[Hg] [facility] Diastolic blood 2022-04-26 00:21:00 98 mm[Hg] [facility] Heart rate 2022-04-26 00:21:00 98 /min [facility] Body temperature 2022-04-26 00:21:00 36.72 Irene [facility] [place] [facility] Respiratory rate 2022-04-26 00:21:00 18 /min [facility] Body height 2022-04-26 00:21:00 154.9 cm [facility] Body weight 2022-04-26 00:21:00 54.432 kg [facility] BMI 2022-04-26 00:21:00 22.67 kg/m2 [facility] Oxygen saturation in 2022-04-26 00:21:00 100 /min [facility] [place] [facility] Systolic blood 2022-04-09 14:39:00 122 mm[Hg] [facility] Diastolic blood 2022-04-09 14:39:00 84 mm[Hg] [facility] Heart rate 2022-04-09 14:39:00 96 [...] 2022-04-07 22:43:36 113 /min [facility] [place] [facility] Respiratory rate 2022-04-07 22:43:36 18 /min [facility] Oxygen saturation in 2022-04-07 22:43:36 97 /min [facility] [place] [facility] Body temperature 2022-04-07 19:41:00 37.17 Irene [facility] Body height 2022-04-07 19:41:00 154.9 cm [facility] Body weight 2022-04-07 19:41:00 60.328 kg [facility] [place] [facility] BMI 2022-04-07 19:41:00 25.13 kg/m2 [facility] [place] [facility] Systolic blood 2022-03-24 19:00:00 125 mm[Hg] [facility] [place] [facility] Diastolic blood 2022-03-24 19:00:00 86 mm[Hg] [facility] [place] [facility] Heart rate 2022-03-24 19:00:00 93 /min [facility] Respiratory rate 2022-03-24 19:00:00 17 /min [facility] [place] [facility] Oxygen saturation in 2022-03-24 19:00:00 97 /min [facility] by [place] [facility] Body temperature 2022-03-24 13:33:00 36.78 Irene [facility] [place] [facility] Systolic blood 2022-03-15 19:23:00 128 mm[Hg] [facility] Diastolic blood 2022-03-15 19:23:00 89 mm[Hg] [facility] [place] [facility] Heart rate 2022-03-15 19:23:00 104 /min [facility] [place] [facility] Body weight 2022-03-15 19:23:00 60.328 kg [facility] [place] [facility] BMI 2022-03-15 19:23:00 25.13 kg/m2 [facility] [place] [facility] Oxygen saturation in 2022-03-15 19:23:00 98 /min [facility] [place] [facility] Systolic blood 2022-03-15 15:02:00 115 mm[Hg] [facility] [place] [facility] Diastolic blood 2022-03-15 15:02:00 70 mm[Hg] [facility] [place] [facility] Heart rate 2022-03-15 15:02:00 85 /min [facility] [place] [facility] Respiratory rate 2022-03-15 15:02:00 20 /min [facility] [place] [facility] Oxygen saturation in 2022-03-15 15:02:00 99 /min [facility] [place] [facility] Body temperature 2022-03-15 13:38:00 36.94 Irene [facility] [place] [facility] Body height 2022-03-15 13:38:00 154.9 cm [facility] [place] [facility] Body weight 2022-03-15 13:38:00 54.432 kg [facility] [place] [facility] BMI 2022-03-15 13:38:00 22.67 kg/m2 [facility] [place] [facility] Systolic blood 2022-03-11 16:30:00 124 mm[Hg] [facility] [place] [facility] Diastolic blood 2022-03-11 16:30:00 88 mm[Hg] [facility] [place] [facility] Heart rate 2022-03-11 16:30:00 93 /min [facility] [place] [facility] Body temperature 2022-03-11 16:30:00 36.67 Irene [facility] [place] [facility] Respiratory rate 2022-03-11 16:30:00 14 /min [facility] [place] [facility] Oxygen saturation in 2022-03-11 16:30:00 100 /min [facility] blood by [facility] Pulse oxim[facility] Branch Body height 2022-03-11 14:19:00 154.9 cm [facility] [place] [facility] Body weight 2022-03-11 14:19:00 58.968 kg [facility] [place] [facility] BMI 2022-03-11 14:19:00 24.56 kg/m2 [facility] [place] [facility] Systolic blood 2022-02-27 14:14:00 140 mm[Hg] [facility] [place] [facility] Diastolic blood 2022-02-27 14:14:00 90 mm[Hg] [facility] [place] [facility] Heart rate 2022-02-27 14:14:00 103 /min [facility] [place] [facility] Body height 2022-02-27 14:14:00 154.9 cm [facility] [place] [facility] Body weight 2022-02-27 14:14:00 59.194 kg [facility] [place] [facility] BMI 2022-02-27 14:14:00 24.66 kg/m2 [facility] [place] [facility] Oxygen saturation in 2022-02-27 14:14:00 100 /min [facility] [place] [facility] Systolic blood 2022-02-27 13:19:00 131 mm[Hg] [facility] [place] [facility] Diastolic blood 2022-02-27 13:19:00 86 mm[Hg] [facility] [place] [facility] Heart rate 2022-02-27 13:19:00 102 /min [facility] [place] [facility] Body temperature 2022-02-27 13:19:00 36.33 Irene [facility] [place] [facility] Body height 2022-02-27 13:19:00 154.9 cm [facility] [place] [facility] Body weight 2022-02-27 13:19:00 58.968 kg [facility] [place] [facility] BMI 2022-02-27 13:19:00 24.56 kg/m2 [facility] [place] [facility] Oxygen saturation in 2022-02-27 13:19:00 99 /min [facility] [place] [facility] Systolic blood 2022-02-21 08:06:00 135 mm[Hg] [facility] [place] [facility] Diastolic blood 2022-02-21 08:06:00 97 mm[Hg] [facility] [place] [facility] Heart rate 2022-02-21 08:06:00 98 /min [facility] [place] [facility] Respiratory rate 2022-02-21 08:06:00 16 /min [facility] [place] [facility] Oxygen saturation in 2022-02-21 08:06:00 97 /min [facility] [place] [facility] Body temperature 2022-02-21 06:16:00 36.94 Irene [facility] [place] [facility] Body height 2022-02-21 06:16:00 154.9 cm [facility] Body weight 2022-02-21 06:16:00 60.963 kg [facility] BMI 2022-02-21 06:16:00 25.39 kg/m2 [facility] [place] [facility] Systolic blood 2022 20:08:00 136 mm[Hg] [facility] Diastolic blood 2022 20:08:00 96 mm[Hg] [facility] Heart rate 2022 20:08:00 100 /min [facility] Respiratory rate 2022 20:08:00 20 /min [facility] Oxygen saturation in 2022 20:08:00 98 /min [facility]ter[facility] blood by [facility] Pulse oxim[facility] Branch Body temperature 2022 16:56:00 37.06 Irene [facility] Body weight 2022 16:56:00 54.432 kg [facility] BMI 2022 16:56:00 22.67 kg/m2 [facility] Systolic blood 2022-02-05 14:31:00 128 mm[Hg] [facility] Diastolic blood 2022-02-05 14:31:00 84 mm[Hg] [facility] Heart rate 2022-02-05 14:31:00 86 /min [facility] Body temperature 2022-02-05 14:31:00 37.89 Irene [facility] Respiratory rate 2022-02-05 14:31:00 18 /min [facility] Body height 2022-02-05 14:31:00 154.9 cm [facility] Body weight 2022-02-05 14:31:00 54.432 kg [facility] BMI 2022-02-05 14:31:00 22.67 kg/m2 [facility] Oxygen saturation in 2022-02-05 14:31:00 98 /min [facility] [place] [facility] Systolic blood 2022-01-18 14:50:00 144 mm[Hg] [facility] Diastolic blood 2022-01-18 14:50:00 92 mm[Hg] [facility] Heart rate 2022-01-18 14:50:00 94 /min [facility] Respiratory rate 2022-01-18 14:50:00 20 /min [facility] Oxygen saturation in 2022-01-18 14:50:00 99 /min [facility] blood by [place] [employer] P[facility] oxim[facility] Body weight 2022-01-18 10:18:00 54.432 kg [facility] [place] [facility] BMI 2022-01-18 10:18:00 22.67 kg/m2 [facility] [place] [facility] Body temperature 2022-01-18 10:15:00 36.72 Irene [facility] [place] [facility] Systolic blood 2022-01-15 15:48:26 125 mm[Hg] [facility] [place] [facility] Diastolic blood 2022-01-15 15:48:26 85 mm[Hg] [facility] [place] [facility] Heart rate 2022-01-15 15:48:26 95 /min [facility] [place] [facility] Respiratory rate 2022-01-15 15:48:26 18 /min [facility] [place] [facility] Oxygen saturation in 2022-01-15 15:48:26 98 /min [facility] by [place] [facility] Body temperature 2022-01-15 13:32:00 37.11 Irene [facility] [place] [facility] Body height 2022-01-15 13:32:00 154.9 cm [facility] [place] [facility] Body weight 2022-01-15 13:32:00 54.432 kg [facility] [place] [facility] BMI 2022-01-15 13:32:00 22.67 kg/m2 [facility] [place] [facility] Systolic blood 2022-01-09 00:37:11 127 mm[Hg] [facility] [place] [facility] Diastolic blood 2022-01-09 00:37:11 90 mm[Hg] [facility] [place] [facility] Heart rate 2022-01-09 00:37:11 94 /min [facility] [place] [facility] Body temperature 2022-01-09 00:37:11 37.11 Irene [facility] [place] [facility] Respiratory rate 2022-01-09 00:37:11 16 /min [facility] Oxygen saturation in 2022-01-09 00:37:11 97 /min [facility] Arterial blood by [facility] Pulse oximetry Branch Body height 2022-01-08 23:03:00 154.9 cm Universi [facility] Body weight 2022-01-08 23:03:00 58.06 kg Universi [facility] BMI 2022-01-08 23:03:00 24.19 kg/m2 [facility] Systolic blood 2021-12-12 18:00:00 126 mm[Hg] Univer [facility]ity of pressure [facility] Diastolic blood 2021-12-12 18:00:00 87 mm[Hg] Unive rsity of [facility] Heart rate 2021-12-12 18:00:00 86 /min [facility] Body temperature 2021-12-12 18:00:00 36.89 Irene [facility] Respiratory rate 2021-12-12 18:00:00 18 /min [facility] Body height 2021-12-12 18:00:00 154.9 cm [facility] Body weight 2021-12-12 18:00:00 57.153 kg [facility] BMI 2021-12-12 18:00:00 23.81 kg/m2 [facility] Procedures Procedure Date / Time Performing Clinician Source Performed CONSENT/REFUSAL FOR 2022-09-05 13:42:02 Doctor Unassigned, No [facility] [place] [facility] TREAT[facility] Name [facility] LIPASE 2022-07-31 23:13:00 Manju Newell [facility] TEST, SERUM 2022-07-31 23:13:00 [facility]OLIC PAN[facility] 2022-07-31 23:13:00 [facility] [place] ([id number] CBC WITH DIFF 2022-07-31 23:13:00 Manju Newell [facility] CONSENT/REFUSAL FOR 2022-07-31 22:49:17 Doctor Unassigned, No Un [facility] DIAGNOSIS AND TREATMENT Name [facility] XR ANKLE 3+ VW RIGHT 2022-07-15 16:00:00 Cari Kaur [facility] XR FOOT 3+ VW RIGHT 2022-07-15 16:00:[address] [facility] XR FOOT 3+ VW RIGHT 2022-07-15 16:00:00 [facility] PATIENT FINANCIAL 2022-07-15 15:25:53 Doctor Unassigned, No [facility] POLICY [facility] POCT MOLECULAR STREP 2022-06-23 16:06:00 Unknown, Attending [facility] ASSIGNMENT OF BENEFITS 2022-06-23 15:18:28 Doctor Unassigned, No [facility] COMP. METABOLIC PANEL 2022-05-05 19:14:00 Karon Norton [facility] ([id number]) [facility] CBC WITH DIFF 2022-05-05 19:14:00 [facility] 2022-05-05 19:00:00 Karon Norton [facility] URINALYSIS 2022-05-05 18:58:[address] [facility] 2022-04-26 15:11:00 Zion Bridges [facility] COMP. METABOLIC PANEL 2022-04-26 14:49:00 [facility] ([id number]) [facility] CBC WITH DIFF 2022-04-26 14:49:00 Zion Bridges [facility] URINALYSIS 2022-04-26 14:49:00 Zion Bridges [facility] POCT TEST 2022-04-26 14:45:00 Zion Bridges [facility] CONSENT/REFUSAL FOR 2022-04-26 14:22:29 Doctor Unassigned, No [facility] DIAGNOSIS AND TREATMENT [facility] POCT TEST 2022-04-26 01:22:00 Zion Bridges [facility] ASSIGNMENT OF BENEFITS 2022-04-26 00:54:02 Doctor Unassigned, No [facility] URINALYSIS 2022-04-26 00:45:00 Zion Bridges [facility] CONSENT/REFUSAL FOR 2022-04-26 00:16:47 Doctor Unassigned, No [facility] [place] [facility]REAT[facility] Name [facility] BASIC METABOLIC PANEL 2022-04-07 22:35:00 Olamide Garvin [facility] (NA, K, CL, CO2, Medical Branch GLUCOSE, BUN, CREATININE, CA) CBC WITH DIFF 2022-04-07 22:35:00 Olamide Garvin [facility] URINALYSIS 2022-04-07 21:36:00 Olamide Garvin [facility] URINE DRUG (IMMUNOASSAY) 2022-04-07 21:36:00 Olamide Garvin [facility] [place] - COMPREHENSIVE DRUG Medical [facility] SCREEN W/O REFLEX CONSENT/REFUSAL FOR 2022-04-07 19:29:15 Doctor Unassigned, No [facility] [place] [facility]REAT[facility] POCT TEST 2022-03-24 14:07:00 Kellie [facility] CONSENT/REFUSAL FOR 2022-03-24 13:27:20 Doctor Unassigned, No [facility] [place] DI[facility]NOSIS AND TREATMENT Name [facility] CT ABDOMEN PELVIS WO 2022-03-15 14:09:04 Anna Gould [facility] CONTRAST [facility] URINALYSIS 2022-03-15 13:53:00 Anna Gould [facility] POCT TEST 2022-03-15 13:52:00 Anna Gould [facility] CONSENT/REFUSAL FOR 2022-03-15 13:37:02 Doctor Unassigned, No [facility] [place] DIAGNOSIS AND TREATMENT [facility] POCT TEST 2022-03-11 14:59:00 Angelica Viveros [facility] ty [facility] FLU VACC ([id number]), 6 2022-02-27 13:34:55 Vijay Martinez [facility] MO-64 YRS, .5ML, IM, Medical Bra [facility] QUAD (FLUCELVAX) NOTICE OF PRIVACY 2022-02-21 06:06:30 Doctor Unassigned, No Univ [facility] PRACTICES Name Medical Branch CONSENT/REFUSAL FOR 2022-02-21 06:03:41 Doctor Unassigned, No [facility] [place] DIAGNOSIS AND TREATMENT Name [facility] XR ANKLE <3 VW RIGHT 2022 17:56:42 Maggie Hamilton [facility] CT ABDOMEN PELVIS W 2022 17:44:17 Maggie Hamilton [facility] CT TRAUMA CERVICAL SPINE 2022 17:43:49 Maggie Hamilton [facility] CONTRAST [facility] POCT TEST 2022 17:27:00 Maggie Hamilton [facility] COMP. METABOLIC PANEL 2022 17:17:00 Maggie Hamilton [facility] ([id number]) Medical Branch CBC WITH DIFF 2022 17:17:00 Maggie Hamilton [facility] CONSENT/REFUSAL FOR 2022 16:53:13 Doctor Unassigned, No [facility] Name Medical Branch US GALL BLADDER 2022-01-18 12:31:09 Bernardo Levy Arthur o [facility] US PELVIS COMPLETE WITH 2022-01-18 12:21:13 Melvin Zhao [facility] TRANSVAGINAL [facility] CT ABDOMEN PELVIS W 2022-01-18 11:20:50 Melvin Zhao [facility] CONTRAST [facility] POCT TEST 2022-01-18 10:57:00 Jayy Kennedy [facility] COVID-19 (ID NOW RAPID 2022-01-18 10:57:00 Jayy Kennedy [facility] TESTING) Medical Branch URINALYSIS 2022-01-18 10:47:00 Jayy Kennedy Arthur o f [place] [facility] LIPASE 2022-01-18 10:29:00 Jayy Kennedy Arthur o [facility] TEST, SERUM 2022-01-18 10:29:00 Jayy Kennedy [facility] HEPATIC FUNCTION PANEL 2022-01-18 10:29:00 Jayy Kennedy [facility] ([id number]) (ALB,T.PRO,BILI Medical Branch T,BU/BC,ALT,AST,ALK PHOS) BASIC METABOLIC PANEL 2022-01-18 10:29:00 Jayy Kennedy [facility] (NA, K, CL, CO2, Medical Branch GLUCOSE, BUN, CREATININE, CA) CBC WITH DIFF 2022-01-18 10:29:00 Jayy Kennedy [facility] CONSENT/REFUSAL FOR 2022-01-18 10:13:31 Doctor Unassigned, No Un iversity [facility] DIAGNOSIS AND TREATMENT Name [facility] CT HEAD WO CONTRAST 2022-01-15 15:22:29 Danita [facility] TEST, SERUM 2022-01-15 14:36:00 Danita [facility] BASIC METABOLIC PANEL 2022-01-15 14:36:00 [facility] (NA, K, CL, CO2, Medical Branch GLUCOSE, BUN, CREATININE, CA) CBC WITH DIFF 2022-01-15 14:36:00 Danita [facility] CONSENT/REFUSAL FOR 2022-01-15 13:28:12 Doctor Unassigned, No [facility] Name [facility] XR CERVICAL SPINE 4 VW 2022-01-09 [facility]:29[facility]W 2022-01-09 [facility]:29[facility]ACIC 3 VW 2022-01-09 00:29[facility]22-01-08 [facility] 2022-01-08 22:51:08 Doctor Unassigned, No [facility] Name [facility] GALV ONLY - VAGINAL 2021-12-12 18:37:00 Prasanna Vargas [facility] PATHOGENS BY NUCLEIC Medical [facility] ACID TESTING URINE CULTURE 2021-12-12 18:32:00 Prasanna Vargas [facility] POCT TEST 2021-12-12 18:31:00 Alicia Prasanna [facility] POCT URINALYSIS W/O 2021-12-12 18:31:00 Prasanna Vargas [facility] [place] SPECIFIC [facility] Branch Encounters Start End Encounter Admission Attending Care Care Encounter Source Date/Time Date/Time Type Type Clinicians Facility Department ID 2021-03-14 Emergency [facility] [id number] Univers 03:14:31 ity of [facility] 2021-03-13 Emergency [facility] [id number] Univers 20:05:20 ity of [facility] 2021-03-13 Emergency [facility] [id number] Univers 12:48:28 ity of [facility] 2021-03-13 Emergency [facility] [id number] Univers 02:43:51 ity of [facility] 2021-03-13 Emergency [facility] [id number] Univers 00:27:09 ity of [facility] 2021-03-12 Emergency [facility] [id number] Univers 22:10:36 ity of [facility] 2021-03-12 Emergency [facility] [id number] Univers 20:04:05 ity of [facility] 2021-03-12 Emergency [facility] [id number] Univers 15:25:05 ity of [facility] 2021-03-12 Emergency [facility] [id number] Univers 11:43:36 ity of [facility] 2021-03-12 Emergency [facility] [id number] Univers 07:41:37 ity of [facility] 2021-03-12 Emergency [facility] [id number] Univers 05:43:47 ity of [facility] 2021-03-12 Emergency [facility] [id number] Univers 03:43:41 ity of [facility] 2021-03-12 Emergency [facility] [id number] Univers 01:31:27 ity of [facility] 2021-03-12 Emergency X [facility] [id number] Univers 00:56:44 ity of [facility] 2021-03-12 Emergency [facility] [id number] Univers 00:56:31 ity of [facility] 2021-03-11 Emergency [facility] [id number] Univers 17:47:02 ity of [facility] 2021-03-11 Emergency [facility] [id number] Univers 16:27:15 ity of [facility] 2021-03-11 Emergency [facility] [id number] Univers 12:00:58 ity of [facility] 2021-03-11 Emergency [facility] [id number] Univers 10:33:59 ity of [facility] 2021-03-11 Emergency [facility] [id number] Univers 01:36:52 ity of [facility] 2021-03-10 Emergency [facility] [id number] Univers 23:35:34 ity of [facility] 2021-03-10 Emergency [facility] [id number] Univers 19:06:16 ity of [facility] 2021-03-10 Emergency [facility] [id number] Univers 12:39:47 ity of [facility] 2021-03-10 Emergency [facility] [id number] Univers 06:54:04 ity of [facility] 2021-03-09 Outpatient P [facility] [id number] Univers 13:25:44 ity of [facility] 2021-03-09 Outpatient P [facility] [id number] Univers 13:08:01 ity of [facility] 2021-03-09 Outpatient P [facility] [id number] Univers 12:37:25 ity of [facility] 2021-03-09 [place] [facility] CHRIS [id number] Univers 11:51:20 it of [facility] 2022-11-09 2022-11-09 Outpatient SFA [facility] [id number] Willis 15:26:18 15:26:18 0630 F Jeffery 2022-11-06 2022-11-06 Outpatient R JUAN [facility] [id number] Univers 13:00:00 13:00:00 VIJAY ity [facility] 2022-10-29 2022-10-29 Patient [facility] 1.2.840.114 [id number] Univers 00:00:00 00:00:00 Secure [facility] 350.1.13.10 ity [facility] 4.2.7.2.686 [place] as TOÑO?BLEA [id number] [address] MEDICAL OFFICE BUILDING 2022-10-03 2022-10-03 Letter Gurjit Lim [facility] 1.2.840.114 [id number] Univers 00:00:00 00:00:00 (Out) HEALTH 350.1.13.10 it y of [place] 4.2.7.2.686 Martin as TOÑO?BLEA [id number] Ar dicaliyah [place] 092 [facility] OFFICE [facility] 2022-10-02 2022-10-02 Outpatient R SHARMIN [facility] [id number] Univers 10:00:00 10:00:00 , CELINA it y of [facility] 2022-10-01 2022-10-01 Outpatient R ARJUN [facility] [id number] Univers 09:40:00 09:40:00 REJI lechuga o f [facility] 2022-09-25 2022-09-25 Telephone [facility] 1..784.194 [id number] Univers 00:00:00 00:00:00 Rad Cuello [place] 350.1.13.10 ity of [place].2.7.2.[place] [id number] Ar whit [facility] 059 [facility] 2022-09-21 2022-09-21 Outpatient R LEXY [facility] [id number] Univers 09:30:00 09:30:00 KASSANDRA ity of [facility] 2022-09-21 2022-09-21 Letter [facility] 1..840.114 [id number] Univers 00:00:00 00:00:00 (Out) [employer] 350.1.13.10 it y [facility] 4.2.7.2.686 [place] TOÑO?BLEA [id number] Ar dicaliyah [address] 2022-09-21 2022-09-21 Telephone [facility] 1.2.954.391 [id number] Univers 00:00:00 00:00:00 Kassandra HEALTH 350.1.13.10 it y of [place] 4.2.7.2.686 [place] as TOÑO?BLEA [id number] Ar dical MIKI 2 [facility] 2022-09-21 2022-09-21 Telephone [facility] 1.2.773.581 [id number] Univers 00:00:00 00:00:00 [employer] 350.1.13.10 it y of [place] 4.2.7.2.686 [place] as TOÑO?BLEA [id number] [address] 2022-09-14 2022-09-14 Outpatient R LEXY [facility] [id number] Univers 09:30:00 09:30:00 KASSANDRA [facility] 2022-09-12 2022-09-12 Telephone [facility] 1.2.868.462 [id number] Univers 00:00:00 00:00:00 [employer] 350.1.13.10 it y [facility] 4.2.7.2.686 [place] TOÑO?BLEA [id number] [address] 2022-09-07 2022-09-07 Out[facility] [id number] Univers 11:30:00 11:30:00 [facility] 2022-09-05 2022-09-05 Emergency X [facility] ERT [id number] Univers 08:44:00 13:15:00 KENNEDY [facility] 2022-09-05 2022-09-05 Emergency [facility] 1.2.637.849 [id number] Univers 08:44:00 13:15:00 Cynvanesa [place] 350.1.13.10 i ty of [place] 4.2.7.2.[place] [id number] [address] 2022-09-04 2022-09-04 Telephone [facility] 1.2.640.815 [id number] Univers 00:00:00 00:00:00 [employer] 350.1.13.10 it y of [facility] 4.2.7.2.686 [place] as TOÑO?BLEA [id number] [address] 2022-09-04 2022-09-04 Patient Ponce [facility] 1.2.840.114 [id number] Univers 00:00:00 00:00:00 Secure Msg Rad Cuello [place] 350.1.13.10 ity of [facility] 4.2.7.2.686 [place] [facility] [id number] Ar dicaliyah NAL 059 [facility] 2022-08-29 2022-08-29 Outpatient R SHARMIN [facility] [id number] Univers 09:00:00 09:00:00 , CELINA it y of [facility] 2022-08-14 2022-08-14 Patient Doctor [facility] 1.2.840.114 [id number] Univers 00:00:00 00:00:00 Secure Msg Unassigned, [facility] 350.1.13.10 ity of [place] 4.2.7.2.686 [place] as TOÑO?BLEA [id number] Ar dicaliyah MINOR 092 [facility] OFFICE [facility] 2022-07-31 2022-07-31 Emergency X [facility] ERT [id number] Univers 17:56:00 20:30:00 MANJU it y of [facility] 2022-07-31 2022-07-31 Emergency [facility] 1.2.401.560 [id number] Univers 17:56:00 20:30:00 Manju LAWSON 350.1.13.10 ity of [facility] 4.2.7.2.686 [place] [id number] [facility] 084 [place] 2022-07-15 2022-07-15 Outpatient R [facility] [id number] Univers 09:46:45 23:59:00 CARI lechuga o f [facility] 2022-07-15 2022-07-15 [facility] 1.2.840.114 [id number] Univers 09:46:45 23:59:00 Encounter [employer] 350.1.13.10 ity of [place] 4.2.7.2.686 [place] as TOÑO?BLEA [id number] Ar dicaliyah [place] 808 [facility] OFFICE [facility] 2022-07-15 2022-07-15 [facility] 1.2.840.114 [id number] Univers 09:46:45 23:59:00 Encounter [facility] 350.1.13.10 ity of [place] 4.2.7.2.686 [place] as TOÑO?BLEA [id number] Ar whit [place] 808 [facility] OFFICE [facility] 2022-07-15 2022-07-15 Urgent Cari Kaur [facility] 1.2.840 .114 [id number] Univers 09:20:00 10:29:17 Care Unknown, Attending HEALTH 350.1.13.10 ity of [place] 4.2.7.2.686 [place] as TOÑO?BLEA [id number] Ar whit [place] 370 [facility] OFFICE [facility] 2022-07-15 2022-07-15 Orders Doctor JORDAN 1.2.840.114 [id number] Univers 00:00:00 00:00:00 Only Unassigned, YAZMIN 350.1.13.10 ity of [place] [facility] 4.2.7.2.686 Martin as [id number] [address] 2022-06-23 2022-06-23 Outpatient [facility] [id number] Univers 09:20:00 10:27:39 [facility] 2022-06-23 2022-06-23 [facility]gent [facility] 1.2.840. 114 [id number] Univers 09:20:00 10:27:39 Care Unknown, Attending HEALTH 350.1.13.10 ity of [place] 4.2.7.2.686 Martin as TOÑO?BLEA [id number] [address] 2022-06-23 2022-06-23 Orders Doctor JORDAN 1.2.840.114 [id number] Univers 00:00:00 00:00:00 Only Unassigned, YAZMIN 350.1.13.10 ity of [place] [facility]OSPITAL 4.2.7.2.686 Martin as [id number] [address] 2022-06-15 2022-06-15 Outpatient [facility] [id number] Univers 09:40:00 09:40:00 JEREMY [facility] 2022-05-29 2022-05-29 Outpatient R LEXY [facility] [id number] Univers 08:00:00 08:00:00 KASSANDRA chino [facility] 2022-05-15 2022-05-15 Outpatient R ANGELA, [facility] [id number] Univers 09:20:00 09:20:00 BENNETT lechuga [facility] 2022-05-11 2022-05-11 Outpatient R PUGH [facility] [id number] Univers 09:30:00 09:30:00 KASSANDRA chino [facility] 2022-05-05 2022-05-05 Emergency X NORTON, [facility] ERT [id number] Univers 12:26:00 16:11:00 KARON lechuga [facility] 2022-05-05 2022-05-05 Emergency [facility] 1.2.840.114 [id number] Univers 12:26:00 16:11:00 Karon LAWSON 350.1.13.10 i ty of [place] 4.2.7.2.686 [facility] [id number] [address] 2022-05-01 2022-05-01 Outpatient R PRASANNA VARGAS [facility] [id number] Univers 00:00:00 00:00:00 ankush [facility] 2022-04-26 2022-04-26 Emergency X BRIDGES, [facility] ERT [id number] Univers 08:30:00 09:59:00 ZION lechuga [facility] 2022-04-26 2022-04-26 Emergency [facility] 1.2.949.104 [id number] Univers 08:30:00 09:59:00 Zion LAWSON 350.1.13.10 i ty of [place] 4.2.7.2.686 [facility] [id number] [address] 2022-04-25 2022-04-25 Emergency X [facility] ERT [id number] Univers 18:23:00 21:55:00 CYNVANESA itchino [facility] 2022-04-25 2022-04-25 Emergency [facility] 1.2.344.262 [id number] Univers 18:23:00 21:55:00 Cynvanesa [place] 350.1.13.10 i ty of [facility] 4.2.7.2.686 [place] [id number] [address] 2022-04-19 2022-04-19 Outpatient Farzana GREENE [facility] [id number] Univers 10:00:00 10:00:00 JEREMY lechuga [facility] 2022-04-12 2022-04-12 Telephone [facility] 1.2.360.659 [id number] Univers 00:00:00 00:00:00 [employer] 350.1.13.10 it y of [place] 4.2.7.2.686 [place] as TOÑO?BLEA [id number] [address] OFFICE [facility] 2022-04-11 2022-04-11 Telephone [facility] 1.2.840.114 [id number] Univers 00:00:00 00:00:00 [facility] 350.1.13.10 ity of [facility] 4.2.7.2.686 [place] as TOÑO?BLEA [id number] [address] OFFICE [facility] 2022-04-10 2022-04-10 Telephone [facility] 1.2.746.761 [id number] Univers 00:00:00 00:00:00 [employer] 350.1.13.10 it y of [place] 4.2.7.2.686 [place] as TOÑO?BLEA [id number] [address] OFFICE [facility] 2022-04-09 2022-04-09 Office [facility] 1.2.840.114 [id number] Univers 09:30:00 09:30:00 Visit [employer] 350.1.13.10 it y of [place] 4.2.7.2.686 [place] as TOÑO?BLEA [id number] [address] OFFICE [facility] 2022-04-09 2022-04-09 Outpatient R LEXY [facility] [id number] Univers 09:30:00 09:21:44 KASSANDRA lechuga [facility] 2022-04-07 2022-04-07 Emergency X [facility] ERT [id number] Univers 13:41:00 17:49:00 OLAMIDE ity [facility] 2022-04-07 2022-04-07 Emergency [facility] 1.2.138.441 [id number] Univers 13:41:00 17:49:00 Olamide LAWSON 350.1.13.10 ity of [place] 4.2.7.2.686 [facility] [id number] [address] 2022-04-04 2022-04-04 Telephone [facility] 1.2.042.765 [id number] Univers 00:00:00 00:00:00 [employer] 350.1.13.10 it y of [place] 4.2.7.2.686 Martin as TOÑO?BLEA [id number] [address] MEDICAL OFFICE [facility] 2022-04-02 2022-04-02 Outpatient [facility] [id number] Univers 10:30:00 10:30:00 [facility]22-03-28 2022-03-28 Patient Doctor [facility] 1.2.840.114 [id number] Univers 00:00:00 00:00:00 Secure Msg Unassigned, HEALTH 350.1.13.10 ity of [place] [facility] 4.2.7.2.686 [place] as TOÑO?BLEA [id number] [address] OFFICE [facility] 2022-03-24 2022-03-24 Emergency X PERLA, [facility] ERT [id number] Univers 07:35:00 13:11:00 KELLIE ankush [facility] 2022-03-24 2022-03-24 [facility] 1.2.160.251 [id number] Univers 07:35:00 13:11:00 Kellie LAWSON 350.1.13.10 ity of [facility] 4.2.7.2.686 [facility] [id number] [address] 2022-03-23 2022-03-23 Outpatient [facility] [id number] Univers 10:30:00 10:30:00 KASSANDRA itchino of [facility] 2022-03-23 2022-03-23 Telephone [facility] 1.2.840.114 [id number] Univers 00:00:00 00:00:00 [facility] 350.1.13.10 ity of [place] 4.2.7.2.686 [place] as TOÑO?BLEA [id number] [address] OFFICE [facility] 2022-03-22 2022-03-22 Telephone [facility] 1.2.840.114 [id number] Univers 00:00:00 00:00:00 [facility] 350.1.13.10 ity of [facility] 4.2.7.2.686 [place] as TOÑO?BLEA [id number] [address] 2022-03-22 2022-03-22 Refill [facility] 1.2.840.114 [id number] Univers 00:00:00 00:00:00 [facility] 350.1.13.10 ity of [place] 4.2.7.2.686 [place] as TOÑO?BLEA [id number] [address] 2022-03-21 2022-03-21 Telephone [facility] 1.2.840.114 [id number] Univers 00:00:00 00:00:00 [facility] 350.1.13.10 ity of [facility] 4.2.7.2.686 [place] as TOÑO?BLEA [id number] [address] 2022-03-15 2022-03-15 Outpatient R ARJUN [facility] [id number] Univers 14:00:00 14:36:19 REJI lechuga o f [facility] 2022-03-15 2022-03-15 Office [facility] 1.2.840.114 [id number] Univers 14:00:00 14:36:19 Visit Reji LAWSON 350.1.13.10 ity of [place].2.7.2.686 [place] [id number] [place] 446399 [facility] 2022-03-15 2022-03-15 Emergency X BRYANNA [facility] ERT [id number] Univers 08:40:00 10:47:00 ANNA [facility] 2022-03-15 2022-03-15 Emergency [facility] 1.2.840.114 [id number] Univers 08:40:00 10:47:00 Anna LAWSON 350.1.13.10 i ty of [facility] 4.2.7.2.686 [facility] [id number] [address] 2022-03-14 2022-03-14 Outpatient R ALICIA PRASANNA [facility] [id number] Univers 10:30:00 10:30:00 [facility] 2022-03-11 2022-03-11 Emergency X [facility] ERT [id number] Univers 09:22:00 12:15:00 SHINTA [facility] 2022-03-11 2022-03-11 Emergency [facility] 1.2.840.114 [id number] Univers 09:22:00 12:15:00 Angelica [facility] 350.1.13.10 i ty of [place] 4.2.7.2.686 [facility] [id number] [address] 2022-03-06 2022-03-06 Outpatient Farzana PUGH [facility] [id number] Univers 08:30:00 08:30:00 [facility] 2022-03-02 2022-03-02 Telephone [facility] 1.2.840.114 [id number] Univers 00:00:00 00:00:00 [facility] 350.1.13.10 ity of [place] 4.2.7.2.686 [place] as TOÑO?BLEA [id number] Ar whit [place] [address] [place] [address] MEDICAL OFFICE BUILDING 2022-02-27 2022-02-27 Outpatient Farzana PUGH [facility] [id number] Univers 09:30:00 09:49:42 KASSANDRA [facility] 2022-02-27 2022-02-27 Office [facility] 1.2.840.114 [id number] Univers 09:30:00 09:49:42 Visit Kassandra [facility] 350.1.13.10 it y of [facility] 4.2.7.2.686 [place] TOÑO?BLEA 137.2271868 Ar whit [place] 092 [facility] OFFICE [facility] 2022-02-27 2022-02-27 Office Juan [facility] 1.2.840.114 [id number] Univers 08:00:00 09:12:17 Visit Vijay [facility] 350.1.13.10 it y of [facility] 4.2.7.2.686 [place] as TOÑO?BLEA 329.0944103 Ar whit [place] 044 [facility] 2022-02-26 2022-02-26 Outpatient R LEXY [facility] [id number] Univers 11:30:00 11:30:00 KASSANDRA [facility] 2022-02-21 2022-02-21 Emergency X [facility] ERT [id number] Univers 01:20:00 03:44:00 MAGGIE ankush [facility] 2022-02-21 2022-02-21 Emergency [facility] 1.2.840.114 [id number] Univers 01:20:00 03:44:00 Maggie Farmer [facility] 350.1.13.10 ity of [place] 4.2.7.2.686 [place] [facility] [id number] [address] 2022-02-19 2022-02-19 Patient [facility] 1.2.840.114 [id number] Univers 00:00:00 00:00:00 Secure Kendal [facility] 350.1.13.10 ity of [place] 4.2.7.2.686 [place] TOÑO?BLEA [id number] Ar whit [place] [address] [place] [address] 2022-02-19 2022-02-19 Patient Robb [facility] 1.2.840.114 [id number] Univers 00:00:00 00:00:00 Secure Msg Kendal Amaral HEALTH 350.1.13.10 ity of [place] 4.2.7.2.686 [place] TOÑO?BLEA [id number] Ar whit [place] 044 [facility] OFFICE [facility] 2022-02-192022-02-19 Patient Suzette [facility] 1.2.147.255 [id number] Univers 00:00:00 00:00:00 Secure Msg Ade Chen FLACO 350.1.13.10 ity of [place].2.686 [place] [id number] [facility] [address] 2022 2022 Emergency X [facility] ERT [id number] Univers 11:58:00 15:13:00 MAGGIE lechuga [facility] 2022 2022 Emergency [facility] 1.2.840.114 [id number] Univers 11:58:00 15:13:00 Maggie LAWSON 350.1.13.10 ity of [facility] 4.2.7.2.686 [facility] 524.1379013 [facility] [address] 2022-02-09 2022-02-09 Outpatient R BRANDON, [facility] [id number] Univers 09:00:00 09:00:00 CRICKET davis [facility] 2022-02-06 2022-02-06 Outpatient R JUAN [facility] [id number] Univers 10:00:00 10:00:00 VIJAY lechuga [facility] 2022-02-05 2022-02-05 Nurse Nurse, [facility] 1.2.840.114 [id number] Univers 09:45:00 10:05:00 [facility] 350.1.13.10 ity of [place] 4.2.7.2.686 [place] TOÑO?BLEA [id number] [address] MEDICAL OFFICE BUILDING 2022-02-05 2022-02-05 Outpatient R OLIVER [facility] [id number] Univers 09:20:00 09:20:00 FLACO davis [facility] 2022-01-26 2022-01-26 Case Prasanna Vargas [facility] 1.2.679.323 [id number] Univers 00:00:00 00:00:00 Management Cam [place] 350.1.13.10 ity of [facility] 4.2.7.2.686 [place] [id number] Ar dical [address] 2022-01-22 2022-01-22 Outpatient R JUAN [facility] [id number] Univers 11:00:00 11:00:00 VIJAY itchino [facility] 2022-01-18 2022-01-18 Emergency X SUSANAVALENTIN, [facility] ERT [id number] Univers 05:17:00 10:25:00 BERNARDO ity [facility] 2022-01-18 2022-01-18 Emergency Jayy Kennedy TRAU[facility] 1.2.840.11 4 [id number] Univers 05:17:00 10:25:00 Bernardo Levy [place] 350.1.13.10 [place]2.7.2.686 [place] [id number] [address] 2022-01-15 2022-01-15 Emergency X DANITA [facility] ERT [id number] Univers 08:34:00 10:49:00 MAURA lechuga [facility] 2022-01-15 2022-01-15 Emergency AnaLarry newberry R [facility] 1.2.840.1 14 [id number] Univers 08:34:00 10:49:00 Maura Samayoa 350.1.13.10 itchino [facility] 4.2.7.2.686 [facility] [id number] [address] 2022-01-08 2022-01-08 Emergency X GABRIELA, [facility] ERT [id number] Univers 18:04:00 20:09:00 HUMBERTO [facility] 2022-01-08 2022-01-08 Emergency [facility] 1.2.840.114 [id number] Univers 18:04:00 20:09:00 Humberto LAWSON 350.1.13.10 i ty [facility] 4.2.7.2.686 [facility] [id number] [address] 2021-12-12 2021-12-12 Outpatient R DEYVI [facility] [id number] Univers 13:30:00 13:40:21 [facility] 2021-12-12 2021-12-12 Office Prasanna Vargas [facility] 1.2.840.114 [id number] Univers 13:30:00 13:40:21 Visit Teto Carnes 350.1.13.10 ity of [place] 4.2.7.2.686 [place] [facility] [id number] Ar dical [address] 2021-12-12 2021-12-12 Outpatient R DEYVI, [facility] [id number] Univers 13:30:00 13:40:21 TETO [facility] 2021-12-12 2021-12-12 Outpatient R DEYVI, [facility] [id number] Univers 13:30:00 13:40:21 [facility] 2021-12-11 2021-12-11 Outpatient R SUZETTE, [facility] [id number] Univers 16:15:00 16:15:00 ADE [facility] 2021-12-05 2021-12-05 Outpatient R LYSSA, [facility] [id number] Univers 14:15:00 14:15:00 ROMULO [facility] 2021-11-28 2021-11-28 Emergency X OTONIEL, [facility] ERT [id number] Univers 08:49:00 11:02:00 KARON [facility] 2021-11-28 2021-11-28 [facility] 1.2.840.114 [id number] Univers 08:49:00 11:02:00 Karon LAWSON 350.1.13.10 i ty of [place] 4.2.7.2.686 [place] [id number] [facility] [address] 2021-11-24 2021-11-24 Emergency X ALLYSON K [facility] ERT [id number] Univers 18:14:00 21:04:00 ity [facility] 2021-11-24 2021-11-24 Emergency Kaycee Méndez [facility] 1.2.840.114 [id number] Univers 18:14:00 21:04:00 Sharlene LAWSON 350.1.13.10 i ty of [place] [phone] [facility] [address] 2021-11-24 2021-11-24 Telephone Brandon [facility] 1.2.840.114 [id number] Univers 00:00:00 00:00:00 Cricket Lopez WING COMMANDER 350.1.13.10 ity of [facility] 4.2.7.2.686 [place] MATERNAL [phone] Med ical & CHILD 107 [facility] 2021-11-20 2021-11-20 [facility] 1.2.840.114 [id number] Univers 00:00:00 00:00:00 [facility] 350.1.13.10 ity of [place] 4.2.7.2.686 [place] as TOÑO?BLEA [phone] Ar whit [facility] [address] MEDICAL OFFICE BUILDING 2021-11-19 2021-11-19 Letter JORDAN Santacruz 1.2.840.114 [id number] Univers 00:00:00 00:00:00 (Out) Leslie YAZMIN 350.1.13.10 it y of [facility] 4.2.7.2.686 [place] as [phone] [facility] [address] 2021-11-18 2021-11-[address] [facility] [id number] Univers 10:41:40 23:59:00 FLACO lechuga o f [facility] 2021-11-18 2021-11-18 [facility] [id number] Univers 10:41:40 23:59:00 Encounter [facility] 350.1.13.10 ity of [place] 4.2.7.2.686 [place] as TOÑO?BLEA [phone] Ar dical MIKI [address] MEDICAL OFFICE BUILDING 2021-11-18 2021-11-18 Urgent [facility] 1.2.840.114 [id number] Univers 10:20:00 10:53:20 Care [facility] 350.1.13.10 i ty of [place] 4.2.7.2.686 [place] as TOÑO?BLEA [phone] Me dicaliyah [facility] [address] MEDICAL OFFICE [facility] 2021-11-09 2021-11-09 Outpatient R APURVA [facility] [id number] Univers 10:30:00 10:30:00 CELINA hirenchino [facility] 2021-10-25 2021-10-25 Urgent Ileana Medrano [facility] 1.2.840.114 [id number] Univers 13:20:00 13:20:00 Care Flaco Boyd HEALTH 350.1.13.10 ity of [place] 4.2.7.2.686 Martin as TOÑO?BLEA [phone] [address] OFFICE [facility] 2021-10-25 2021-10-25 Outpatient R MITCHELL [facility] [id number] Univers 13:20:00 12:47:59 ILEANAYOGI lechuga [facility] 2021-10-25 2021-10-25 Patient Juan [facility] 1.2.840.114 [id number] Univers 00:00:00 00:00:00 Secure Msg Vijay HEALTH 350.1.13.10 ity of [place] 4.2.7.2.686 [place] as TOÑO?BLEA [phone] [facility] 044 [facility] OFFICE [facility] 2021-10-25 2021-10-25 Telephone Juan [facility] [id number] Univers 00:00:00 00:00:00 Vijay HEALTH 350.1.13.10 it y of [place] 4.2.7.2.686 [place] as TOÑO?BLEA [phone] [facility] [address] MEDICAL OFFICE [facility] 2021-10-25 2021-10-25 Telephone Provider, [facility] 1.2.840.114 [id number] Univers 00:00:00 00:00:00 Ang Db HEALTH 350.1.13.10 it y of Urgent Care [place] 4.2.7.2.686 [place] TOÑO?BLEA [phone] [facility] [address] MEDICAL OFFICE [facility] 2021-10-25 2021-10-25 Telephone Nurse, Filippo [facility] 1.2.840.114 [id number] Univers 00:00:00 00:00:00 Db Urgent HEALTH 350.1.13.10 ity of [facility] 4.2.7.2.686 [place] TOÑO?BLEA [phone] Ar whit [place] [address] [place] [address] MEDICAL OFFICE BUILDING 2021-10-24 2021-10-24 Outpatient Farzana AVANILISAJESSICA [facility] [id number] Univers 10:15:00 10:15:00 [facility] 2021-10-24 2021-10-24 Outpatient R LYSSA [facility] [id number] Univers 10:15:00 10:15:00 [facility] 2021-10-11 2021-10-11 Outpatient R LYSSA [facility] [id number] Univers 09:30:00 09:30:00 [facility] 2021-10-10 2021-10-10 Outpatient [facility] [id number] Univers 13:30:00 13:30:00 ity [facility] 2021-10-10 2021-10-10 Outpatient R VARGAS [facility] [id number] Univers 13:30:00 13:30:00 ity [facility] 2021-10-10 2021-10-10 Outpatient Farzana VARGAS [facility] [id number] Univers 13:30:00 13:30:00 ity [facility] 2021-10-10 2021-10-10 Outpatient Farzana [facility] [id number] Univers 13:30:00 13:30:00 ity [facility] 2021-10-10 2021-10-10 Outpatient R PRASANNA VARGAS [facility] [id number] Univers 13:30:00 13:30:00 ity [facility] 2021-10-10 2021-10-10 Outpatient Farzana VARGAS [facility] [id number] Univers 13:30:00 13:30:00 ity [facility] 2021-10-10 2021-10-10 Outpatient Farzana VARGAS [facility] [id number] Univers 13:30:00 13:30:00 ity [facility] 2021-10-05 2021-10-05 Patient Robb TNDAISY 1.2.840.114 [id number] Univers 00:00:00 00:00:00 Secure g Kendal Amaral HEALTH 350.1.13.10 ity of [place] 4.2.7.2.686 [place] TOÑO?BLEA [id number] [address] MEDICAL OFFICE BUILDING 2021-10-05 2021-10-05 Patient Robb [facility] 1.2.840.114 [id number] Univers 00:00:00 00:00:00 Secure Mslaila Amaral HEALTH 350.1.13.10 ity of [place] 4.2.7.2.686 [place] TOÑO?BLEA [phone] [address] OFFICE [facility] 2021-10-04 2021-10-04 Pre Visit HILARIO Rodriguez 1.2.477.926 [id number] Univers 00:00:00 00:00:00 Outreach Melia TELLO 350.1.13.10 [place] [phone] [facility] [address] 2021-09-28 2021-09-28 [facility] 1.2.840.114 [id number] Univers 13:30:00 13:45:00 Visit Celina RAMIREZTANY 350.1.13.10 it[place] of [place] 4.2.7.2.686 [place] [id number] [facility] [address] 2021-09-28 2021-09-28 Outpatient R APURVA [facility] [id number] Univers 13:30:00 13:30:00 CELINA ity [facility] 2021-09-28 2021-09-28 Outpatient R APURVA [facility] [id number] Univers 13:30:00 13:30:00 CELINA ity [facility] 2021-09-28 2021-09-28 [facility] 1.2.840.114 [id number] Univers 00:00:00 00:00:00 Secure Msg Celina RAMIREZTANY 350.1.13.10 ity of [place] 4.2.7.2.686 [place] [phone] [address] 2021-09-27 2021-09-27 Outpatient R DEYVI [facility] [id number] Univers 14:00:00 14:00:00 TETO lechuga [facility] 2021-09-27 2021-09-27 Outpatient R ADITI [facility] [id number] Univers 09:30:00 09:30:00 DANIA chino [facility] 2021-09-27 2021-09-27 Outpatient R ADITI [facility] [id number] Univers 09:30:00 09:30:00 [facility] 2021-09-27 2021-09-27 Outpatient R ADITI [facility] [id number] Univers 09:30:00 09:30:00 [facility] 2021-09-26 2021-09-26 Outpatient R AKINSIMALIK, [facility] [id number] Univers 10:45:00 10:45:00 CRICKET ity o [facility] 2021-09-26 2021-09-26 Outpatient R AKINSIPE, [facility] [id number] Univers 10:45:00 10:45:00 CRICKET ity o [facility] 2021-09-26 2021-09-26 Patient [facility] 1.2.840.114 [id number] Univers 00:00:00 00:00:00 [facility] 350.1.13.10 ity of [place] 4.2.7.2.686 [place] TOÑO?BLEA [id number] [address] MEDICAL OFFICE [facility] 2021-09-26 2021-09-26 Patient Juan [facility] 1.2.840.114 [id number] Univers 00:00:00 00:00:00 Secure Msg Vijay HEALTH 350.1.13.10 ity of [place] 4.2.7.2.686 [place] TOÑO?BLEA [id number] [address] 2021-09-25 2021-09-25 Urgent Flaco Boyd [facility] 1.2.840. 114 [id number] Univers 10:20:00 11:10:42 Care Mitchell [facility] 350.1.13.10 ity of [place] 4.2.7.2.686 [place] TOÑO?BLEA [id number] [address] OFFICE [facility] 2021-09-25 2021-09-[address] [facility] [id number] Univers 10:20:00 11:10:42 FLACO ity o f [facility] 2021-09-25 2021-09-[address] [facility] [id number] Univers 10:20:00 10:20:00 FLACO ity o f [facility] [place] [facility] 2021-09-25 2021-09-25 Outpatient R PRASANNA VARGAS [facility] [id number] Univers 10:00:00 10:00:00 ity of [facility] [place] [facility] 2021-09-25 2021-09-25 Telephone [facility] 1..840.114 [id number] Univers 00:00:00 00:00:00 [facility] 350.1.13.10 i ty of [place] 4.2.7.2.686 [place] TOÑO?BLEA [phone] [address] OFFICE [facility] 2021-09-25 2021-09-25 Patient Prasanna Vargas [facility] 1.2.391.770 [id number] Univers 00:00:00 00:00:00 Secure Msg Cam [place] 350.1.13.10 ity of [place] 4.2.7.2.686 [place] PROFESS[place] [phone] [address] 2021-09-25 2021-09-25 Telephone [facility] 1.2.840.114 [id number] Univers 00:00:00 00:00:00 Cricket C WING COMMANDER 350.1.13.10 ity of [facility] 4.2.7.2.686 [place] as MATERNAL [phone] Med ical & CHILD 107 [facility] 2021-09-25 2021-09-25 Telephone Apurva [facility] 1.2.645.964 [id number] Univers 00:00:00 00:00:00 Celinarobbie SAM 350.1.13.10 ity of [place] 4.2.7.2.686 [place] [phone] [address] 2021-09-15 2021-09-15 Patient Robb [facility] 1.2.840.114 [id number] Univers 00:00:00 00:00:00 Secure Msg Kendal Amaral HEALTH 350.1.13.10 ity of [place] 4.2.7.2.686 [place] TOÑO?BLEA [phone] [address] MEDICAL OFFICE [facility] 2021-09-15 2021-09-15 Patient Robb [facility] 1.2.840.114 [id number] Univers 00:00:00 00:00:00 Secure Msg Kendal Amaral HEALTH 350.1.13.10 ity of [place] 4.2.7.2.686 [place] TOÑO?BLEA [id number] [address] MEDICAL OFFICE [facility] 2021-09-15 2021-09-15 Patient [facility] 1.2.840.114 [id number] Univers 00:00:00 00:00:00 Secure Mslaila Amaral HEALTH 350.1.13.10 ity of [place] 4.2.7.2.686 [place] TOÑO?BLEA [id number] [address] OFFICE [facility] 2021-09-14 2021-09-14 Patient Juan [facility] 1.2.840.114 [id number] Univers 00:00:00 00:00:00 Secure Mslaila Penaloza HEALTH 350.1.13.10 ity of [place] 4.2.7.2.686 [place] TOÑO?BLEA [phone] [address] OFFICE [facility] 2021-09-12 2021-09-12 Outpatient Farzana MIXON [facility] [id number] Univers 10:30:00 10:30:00 CELINA lechuga [facility] 2021-09-12 2021-09-12 Outpatient Farzana MIXON [facility] [id number] Univers 10:30:00 10:30:00 CELINA lechuga [facility] 2021-09-12 2021-09-12 Patient Meet [facility] 1.2.840.114 [id number] Univers 00:00:00 00:00:00 Secure Msg Daniel MULTISPEC 350.1.13.10 ity of [place]2.[place].2.686 [place] [phone] [facility] [place] [address] [facility] 2021-09-12 2021-09-12 Orders Doctor JORDAN 1.2.840.114 [id number] Univers 00:00:00 00:00:00 Only Unassigned, YAZMIN 350.1.13.10 ity of [place] [facility] 4.2.7.2.686 [place] [phone] [place] [address] [address] 2021-09-12 2021-09-12 Patient Juan [facility] 1.2.840.114 [id number] Univers 00:00:00 00:00:00 Secure Msg Vijay HEALTH 350.1.13.10 [facility] 4.2.7.2.686 [place] TOÑO?BLEA [id number] [address] MEDICAL OFFICE BUILDING 2021-09-05 2021-09-05 Patient Juan [facility] 1.2.840.114 [id number] Univers 00:00:00 00:00:00 Secure Msg Vijay HEALTH 350.1.13.10 ity of [place] 4.2.7.2.686 [place] TOÑO?BLEA [id number] [address] MEDICAL OFFICE BUILDING 2021-09-04 2021-09-04 Patient Juan [facility] 1.2.840.114 [id number] Univers 00:00:00 00:00:00 Secure Msg Vijay HEALTH 350.1.13.10 ity of [place] 4.2.7.2.686 [place] TOÑO?BLEA [id number] [address] MEDICAL OFFICE BUILDING 2021-08-25 2021-08-25 Telephone Aditi [facility] 1.2.840.114 [id number] Univers 00:00:00 00:00:00 Dania L HEALTH 350.1.13.10 it y of [place] 4.2.7.2.686 [place] TOÑO?BLEA [id number] Me whit [place] [address] MEDICAL OFFICE BUILDING 2021-08-25 2021-08-25 Patient Juan [facility] 1.2.840.114 [id number] Univers 00:00:00 00:00:00 Secure Msg Vijay HEALTH 350.1.13.10 ity of [place] 4.2.7.2.686 [place] TOÑO?BLEA [phone] Me whit [place] 044 [facility] OFFICE [facility] 2021-08-24 2021-08-24 Telephone [facility] 1.2.121.761 [id number] Univers 00:00:00 00:00:00 Vijay HEALTH 350.1.13.10 it y of [place] 4.2.7.2.686 [place] TOÑO?BLEA [id number] Me whit [place] 044 [facility] OFFICE [facility] 2021-08-24 2021-08-24 Patient Juan [facility] 1.2.840.114 [id number] Univers 00:00:00 00:00:00 Secure Msg Vijay HEALTH 350.1.13.10 ity of [place] 4.2.7.2.686 [place] TOÑO?BLEA [phone] Ar whit [place] 044 [facility] OFFICE [facility] 2021-08-23 2021-08-23 Patient [facility] 1.2.840.114 [id number] Univers 00:00:00 00:00:00 Secure Msg Vijay HEALTH 350.1.13.10 ity of [place] 4.2.7.2.686 [place] TOÑO?BLEA [phone] Me whit [place] 044 [facility] OFFICE [facility] 2021-08-23 2021-08-23 Telephone [facility] 1.2.455.302 [id number] Univers 00:00:00 00:00:00 Vijay HEALTH 350.1.13.10 it y of [place] 4.2.7.2.686 [place] TOÑO?BLEA [id number] Ar whit [place] 044 [facility] OFFICE [facility] 2021-08-22 2021-08-22 Telephone [facility] 1.2.444.037 [id number] Univers 00:00:00 00:00:00 Vijay HEALTH 350.1.13.10 it y of [place] 4.2.7.2.686 [place] TOÑO?BLEA [phone] Ar dical MIKI [address] MEDICAL OFFICE [facility] 2021-08-22 2021-08-22 Patient Jaja [facility] 1.2.840.114 [id number] Univers 00:00:00 00:00:00 Secure Msg Hallie HEALTH 350.1.13.10 ity of [place] 4.2.7.2.686 [place] TOÑO?BLEA [phone] Ar dicaliyah [place] [address] MEDICAL OFFICE [facility] 2021-08-18 2021-08-18 Telephone Juan [facility] 1.2.265.261 [id number] Univers 00:00:00 00:00:00 Vijay HEALTH 350.1.13.10 it y of [place] 4.2.7.2.686 [place] TOÑO?BLEA [phone] Ar dicaliyah [place] [address] [place] [address] OFFICE [facility] 2021-08-17 2021-08-17 Outpatient Farzana MIXON [facility] [id number] Univers 09:00:00 09:00:00 CELINA ankush [facility] 2021-08-17 2021-08-17 Outpatient Farzana MIXON [facility] [id number] Univers 09:00:00 09:00:00 CELINA hirenchino [facility] 2021-08-16 2021-08-16 Patient [facility] 1.2.840.114 [id number] Univers 00:00:00 00:00:00 Secure [facility] HEALTH 350.1.13.10 ity of [place] 4.2.7.2.686 [place] TOÑO?BLEA [phone] Ar dicaliyah [place] 044 [facility] OFFICE [facility] 2021-08-15 2021-08-15 Office [facility] 1.2.840.114 [id number] Univers 15:30:00 16:16:42 Visit [facility] 350.1.13.10 it y of [place] 4.2.7.2.686 [place] TOÑO?BLEA [phone] Ar dicaliyah [place] [address] [place] [address] MEDICAL OFFICE BUILDING 2021-08-15 2021-08-15 Outpatient Farzana KIM [facility] [id number] Univers 15:30:00 16:16:42 ADÁN chino [facility] 2021-08-15 2021-08-15 Outpatient Farzana KIM [facility] [id number] Univers 15:30:00 15:30:00 ADÁN chino [facility] 2021-08-15 2021-08-15 Outpatient Farzana KIM [facility] [id number] Univers 15:30:00 15:30:00 ADÁN chino [facility] 2021-08-15 2021-08-15 Outpatient Farazna KIM [facility] [id number] Univers 15:30:00 15:30:00 [facility] 2021-08-15 2021-08-15 [facility] [id number] Univers 09:27:00 12:26:00 MAURA hirenchino [facility] 2021-08-15 2021-08-15 Emergency [facility] 1.2.403.201 [id number] Univers 09:27:00 12:26:00 [place] 350.1.13.10 [facility] 4.2.7.2.686 [facility] [phone] [place] [address] 2021-08-15 2021-08-15 Emergency [facility] [id number] Univers 09:27:00 12:26:00 MAURA maradiagachino [facility] 2021-08-14 2021-08-14 Outpatient Farzana MARTINEZ [facility] [id number] Univers 13:25:00 23:59:00 VIJAYLAVINIA lechuga [facility] 2021-08-14 2021-08-14 Outpatient Farzana MARTINEZ [facility] [id number] Univers 13:25:00 23:59:00 VIJAY ankush [facility] 2021-08-14 2021-08-14 Outpatient Farzana MARTINEZ [facility] [id number] Univers 13:25:00 13:25:00 VIJAY maradiagachino [facility] 2021-08-14 2021-08-14 Outpatient Farzana MARTINEZ [facility] [id number] Univers 12:19:07 13:24:00 VIJAY lechuga [facility] 2021-08-14 2021-08-14 Outpatient R JUAN [facility] [id number] Univers 12:19:07 13:24:00 VIJAY lechuga [facility] 2021-08-14 2021-08-14 Research Assistant Member Lab, Ang [facility] 1.2.840.1 14 [id number] Univers 12:30:00 13:01:24 Visit Vijay Martinez 350.1.13.10 ity of [place] 4.2.7.2.686 [place] as TOÑO?BLEA [phone] [address] OFFICE [facility] 2021-08-14 2021-08-14 Research Assistant Member Lab, On license of [facility] 1.2.840.1 14 [id number] Univers 12:30:00 12:45:00 Visit Vijay Martinez HEALTH 350.1.13.10 ity of [place] 4.2.7.2.686 [place] as TOÑO?BLEA [phone] [facility] [address] OFFICE [facility] 2021-08-14 2021-08-14 Office [facility] 1.2.840.114 [id number] Univers 11:30:00 12:31:12 Visit Vijay PETTY 350.1.13.10 it y of [place] 4.2.7.2.686 [place] TOÑO?BLEA [id number] [facility] [address] OFFICE [facility] 2021-08-14 2021-08-14 Outpatient R VÍCTORKassandra [facility] [id number] Univers 11:30:00 12:31:12 VIJAY lechuga [facility] 2021-08-14 2021-08-14 Patient Juan [facility] 1.2.840.114 [id number] Univers 00:00:00 00:00:00 Secure Msg Vijay HEALTH 350.1.13.10 ity of [place] 4.2.7.2.686 [place] as TOÑO?BLEA [id number] [address] OFFICE [facility] 2021-08-09 2021-08-09 Outpatient R JUDY [facility] [id number] Univers 14:45:00 14:45:00 ADÁNOVI lechuga [facility] 2021-08-09 2021-08-09 Telephone [facility] 1.2.374.159 [id number] Univers 00:00:00 00:00:00 Vijay PETTY 350.1.13.10 it y [facility] 4.2.7.2.686 [place] TOÑO?BLEA [phone] Ar dicaliyah AMARJITMOE 044 [facility] OFFICE [facility] 2021-08-08 2021-08-08 [facility] [id number] Univers 11:30:00 23:59:00 VIJAY lechuga [facility] 2021-08-08 2021-08-08 [facility] 1.2.840.114 [id number] Univers 11:30:00 23:59:00 Encounter Vijay [facility] 350.1.13.10 ity of [place] 4.2.7.2.686 [place] as TOÑO?BLEA [phone] Ar alessandrapa AMARJITMOE 808 [facility] OFFICE [facility] 2021-08-08 2021-08-08 Outpatient [facility] [id number] Univers 11:15:00 11:15:00 VIJAY lechuga [facility] 2021-08-08 2021-08-08 Out[facility] [id number] Univers 11:00:00 11:00:00 VIJAY lechuga [facility] 2021-08-08 2021-08-08 Patient Doctor JORDAN 1.2.840.114 [id number] Univers 00:00:00 00:00:00 Secure Msg Unassigned, YAZMIN 350.1.13.10 ity of [place] [facility] 4.2.7.2.686 [place] as [phone] [address] 2021-08-07 2021-08-07 [facility] 1.2.840.114 [id number] Univers 09:30:00 10:23:21 Visit Vijay [facility] 350.1.13.10 it y of [place] 4.2.7.2.686 [place] TOÑO?BLEA [id number] Ar dical AMARJIT [address] MEDICAL OFFICE [facility] 2021-08-07 2021-08-07 Outpatient R JUAN [facility] [id number] Univers 09:30:00 10:23:21 VIJAY lechuga [facility] 2021-08-07 2021-08-07 Outpatient R JUAN [facility] [id number] Univers 09:30:00 09:30:00 VIJAY lechuga of [facility] 2021-08-07 2021-08-07 Patient Juan [facility] 1.2.840.114 [id number] Univers 00:00:00 00:00:00 Secure Msg Vijay HEALTH 350.1.13.10 ity of [place] 4.2.7.2.686 [place] TOÑO?BLEA [phone] [facility] [address] OFFICE [facility] 2021-08-07 2021-08-07 Patient Juan [facility] 1.2.840.114 [id number] Univers 00:00:00 00:00:00 Secure Msg Vijay HEALTH 350.1.13.10 ity of [place] 4.2.7.2.686 [place] TOÑO?BLEA [id number] [address] OFFICE [facility] 2021-08-07 2021-08-07 Patient Apurva [facility] 1.2.840.114 [id number] Univers 00:00:00 00:00:00 Secure Msg Celina Kassandra FLACO 350.1.13.10 ity of [place].2.[place] [id number] [address] 2021-08-04 2021-08-04 Outpatient R SHADIA [facility] [id number] Univers 10:00:00 10:00:00 PETRA ity of [facility] 2021-08-04 2021-08-04 Patient [facility] 1.2.840.114 [id number] Univers 00:00:00 00:00:00 Secure Msg Vijay HEALTH 350.1.13.10 ity of [place] 4.2.7.2.686 [place] TOÑO?BLEA [id number] [address] MEDICAL OFFICE [facility] 2021-08-03 2021-08-03 Office SOURAV Diaz 1.2.840.114 [id number] Univers 11:00:00 12:48:43 Visit Jayy Dowling 350.1.13.10 it y of [place] 4.2.7.2.686 [place] as BANK [phone] [facility]. [address] 2021-08-03 2021-08-03 Outpatient R EMILY [facility] [id number] Univers 11:00:00 12:48:43 JAYYBELKYS lechuga [facility] 2021-08-03 2021-08-03 [facility] [id number] Univers 11:00:00 11:00:00 JAYY [facility] 2021-08-03 2021-08-03 Patient Apurva [facility] 1.2.840.114 [id number] Univers 00:00:00 00:00:00 Secure Msg Celina Kassandra SAM 350.1.13.10 ity of [facility] 4.2.7.2.686 [place] [id number] [address] 2021-08-02 2021-08-02 Telephone [facility] 1.2.524.500 [id number] Univers 00:00:00 00:00:00 Vijay [employer] 350.1.13.10 it y of [place] 4.2.7.2.686 [place] TOÑO?BLEA [phone] Ar whit [address] MEDICAL OFFICE BUILDING 2021-07-21 2021-07-21 Outpatient R DARRION WYATT [facility] [id number] Univers 08:00:00 08:52:53 DARRION WYATT itchino [facility] 2021-07-17 2021-07-17 Outpatient R JUAN [facility] [id number] Univers 11:30:00 11:30:00 VIJAY lechuga [facility] 2021-06-19 2021-06-19 Telephone [facility] 1.2.246.340 [id number] Univers 00:00:00 00:00:00 Vijay HEALTH 350.1.13.10 it y [facility] 4.2.7.2.686 [place] TOÑO?BLEA [phone] [address] MEDICAL OFFICE [facility] 2021-06-09 2021-06-09 Telephone [facility] 1.2.009.121 [id number] Univers 00:00:00 00:00:00 Reji LAWSON 350.1.13.10 ity of [place].2.[place] [phone] [facility] 059 [facility] 2021-06-06 2021-06-06 Outpatient R DEYVI [facility] [id number] Univers 11:15:00 11:15:00 TETO itchino [facility] 2021-06-06 2021-06-06 Outpatient R DEYVI [facility] [id number] Univers 11:15:00 11:15:00 TETO hirenchino [facility] 2021-06-02 2021-06-02 [facility] [id number] Univers 15:45:00 15:45:00 WONDIFUL ity o f [facility] 2021-05-31 2021-05-31 [facility] [id number] Univers 10:00:00 10:46:31 VIJAY hirenchino [facility] 2021-05-31 2021-05-31 Office [facility] [id number] [id number] Univers 10:00:00 10:46:31 Visit [facility] 350.1.13.10 it y of [place] 4.2.7.2.686 [place] as TOÑO?BLEA [phone] [address] OFFICE [facility] 2021-05-31 2021-05-31 [facility] [id number] Univers 10:00:00 10:46:31 VIJYA maradiagachino [facility] 2021-05-31 2021-05-31 Orders Doctor ORTEGA [id number] Univers 00:00:00 00:00:00 Only Unassigned, YAZMIN 350.1.13.10 ity of [place] [facility] 4.2.7.2.686 [place] as [phone] [address] 2021-05-26 2021-05-26 Telephone Yaneli [facility] [id number] Univers 00:00:00 00:00:00 Skylar Kassandra HEALTH 350.1.13.10 i ty of [facility] 4.2.7.2.686 [place] TOÑO?BLEA [phone] [facility] AMARJIT 044 [facility] OFFICE [facility] 2021-05-26 2021-05-26 Patient Prasanna Vargas [facility] [id number] Univers 00:00:00 00:00:00 Secure Msg Cam [facility] 350.1.13.10 [facility] 4.2.7.[place] [phone] Ar dicaliyah NAL 134 [facility] 2021-05-25 2021-05-25 Telemedici [facility] 1.2.840.114 [id number] Univers 14:00:00 14:30:00 ne Visit Skylar Cannon HEALTH 350.1.13.10 ity of [place] 4.2.7.2.686 [place] as TOÑO?BLEA [phone] [facility] 044 [facility] OFFICE [facility] 2021-05-25 2021-05-25 Outpatient R YANELIGALION [facility] [id number] Univers 14:00:00 14:00:00 [facility] 2021-05-25 2021-05-[address] [facility] [id number] Univers 14:00:00 14:00:00 [facility] 2021-05-24 2021-05-24 Telephone [facility] 1.2.469.806 [id number] Univers 00:00:00 00:00:00 Sendil Cuate [place] 350.1.13.10 ity [facility] [place] [phone] Ar dicpa NAL 059 [facility] 2021-05-23 2021-05-23 Outpatient R [facility] [id number] Univers 10:00:00 10:00:00 ity [facility] 2021-05-23 2021-05-23 Outpatient R [facility] [id number] Univers 10:00:00 10:00:00 ity of [facility] 2021-05-16 2021-05-16 Outpatient R DEYVI [facility] [id number] Univers 09:00:00 09:00:00 TETO ity [facility] 2021-05-12 2021-05-12 Orders Doctor JORDAN 1.2.840.114 [id number] Univers 00:00:00 00:00:00 Only Unassigned, YAZMIN 350.1.13.10 ity of [facility] 4.2.7.2.686 [place] as [phone] [address] 2021-05-10 2021-05-10 [facility] [id number] Univers 13:00:00 13:00:00 WONDIFUL ity o f [facility] 2021-05-10 2021-05-10 [facility] [id number] Univers 13:00:00 13:00:00 WONDIFUL ity o f [facility] 2021-05-09 2021-05-09 Telephone Prasanna Vargas [facility] 1.2.840.114 [id number] Univers 00:00:00 00:00:00 Jm [place] 350.1.13.10 i ty of [place].7.2.[place] [phone] Ar dical NAL 134 [facility] 2021-05-09 2021-05-09 Patient [facility] 1.2.840.114 [id number] Univers 00:00:00 00:00:00 Secure Msg Rad [place] 350.1.13.10 ity [facility] 4.2.7.2.[place] [phone] Ar dical NAL 059 [facility] 2021-05-08 2021-05-08 Outpatient Farzana ARANA [facility] [id number] Univers 16:00:00 16:00:00 JE lechuga [facility] 2021-05-08 2021-05-08 Outpatient Farzana ARANA [facility] [id number] Univers 16:00:00 16:00:00 JE ity [facility] 2021-05-08 2021-05-08 [facility] 1.2.840.114 [id number] Univers 00:00:00 00:00:00 Secure Msg Rad [place] 350.1.13.10 ity of [place].2.[place] [phone] [facility] 059 [facility] 2021-05-08 2021-05-08 Patient [facility] 1.2.840.114 [id number] Univers 00:00:00 00:00:00 Secure Msg Rda RauschHPilar [place] 350.1.13.10 ity of [facility] 4.2.[place].2.[place] [phone] [place] 446399 [facility] 2021-05-03 2021-05-03 Out[facility] [id number] Univers 11:15:36 23:59:00 REJI lechuga o f [facility] 2021-05-03 2021-05-03 [facility] 1.2.840.114 [id number] Univers 11:15:36 23:59:00 Encounter Reji [place] 350.1.13.10 ity [facility] [place] [phone] [facility] 846 [facility] 2021-05-03 2021-05-03 Telephone [facility] 1.2.840.114 [id number] Univers 00:00:00 00:00:00 Wondiful A HEALTH 350.1.13.10 ity of [facility] 4.2.7.2.686 [place] TOÑO?BLEA [phone] [address] 2021-05-02 2021-05-02 Telephone [facility] 1.2.040.102 [id number] Univers 00:00:00 00:00:00 Rad [place] 350.1.13.10 ity of [place].2.[place] [phone] [facility] 059 [facility] 2021-05-02 2021-05-02 Patient Cristina [facility] 1.2.840.114 [id number] Univers 00:00:00 00:00:00 Secure Msg Wondiful A HEALTH 350.1.13.10 ity [facility] 4.2.7.2.686 [place] TOÑO?BLEA [phone] [facility] 044 [facility] OFFICE [facility] 2021-05-02 2021-05-02 Telephone Cristina [facility] 1.2.840.114 [id number] Univers 00:00:00 00:00:00 Wondiful A HEALTH 350.1.13.10 ity of [facility] 4.2.7.2.686 [place] TOÑO?BLEA [phone] [facility] 044 [facility] OFFICE [facility] 2021-05-02 2021-05-02 Patient Ponce [facility] 1.2.840.114 [id number] Univers 00:00:00 00:00:00 Secure Msg Rad [place] 350.1.13.10 ity of [facility] 4.2.7.2.[place] [facility] [phone] Ar dical NAL 059 [facility] 2021-04-27 2021-04-27 Emergency [facility] ERT [id number] Univers 14:24:00 15:49:00 MAGGIE ity [facility] 2021-04-27 2021-04-27 Emergency Alfonso [facility] 1.2.840.114 [id number] Univers 14:24:00 15:49:00 Maggie [place] 350.1.13.10 ity of [facility] 4.2.7.2.[place] [phone] [facility] [address] 2021-04-27 2021-04-27 Laboratory Only, Ang Db Test [facility] 1.2.8 40.114 [id number] Univers 11:15:00 11:30:00 Only Unknown, Attending HEALTH 350.1.13.10 ity of [place] 4.2.7.2.686 [place] TOÑO?BLEA [phone] Ar dical [facility] [address] MEDICAL OFFICE BUILDING 2021-04-27 2021-04-27 Outpatient R SIL, [facility] [id number] Univers 11:15:00 11:15:00 THONY ity of [facility] 2021-04-27 2021-04-27 Orders Doctor JORDAN 1.2.840.114 [id number] Univers 00:00:00 00:00:00 Only Unassigned, YAZMIN 350.1.13.10 ity of [place] [facility] 4.2.7.2.686 [place] as [phone] [address] 2021-04-20 2021-04-20 Outpatient R JUSTINE, [facility] [id number] Univers 15:00:00 15:00:00 SCOTT ity [facility] 2021-04-13 2021-04-13 Patient [facility] 1.2.840.114 [id number] Univers 00:00:00 00:00:00 Secure Msg Wondiful A HEALTH 350.1.13.10 ity of [place] 4.2.7.2.686 [place] as TOÑO?BLEA [phone] [facility] 044 [facility] OFFICE [facility] 2021-04-12 2021-04-12 Telephone Cristina [facility] 1.2.840.114 [id number] Univers 00:00:00 00:00:00 Wondiful A HEALTH 350.1.13.10 ity of [facility] 4.2.7.2.686 [place] TOÑO?BLEA [phone] [facility] 044 [facility] OFFICE [facility] 2021-03-27 2021-03-27 Telephone Prasanna Vargas [facility] 1.2.840.114 [id number] Univers 00:00:00 00:00:00 Cam [place] 350.1.13.10 i ty of [place].2.[place] [phone] [facility] 134 [facility] 2021-03-23 2021-03-23 Outpatient R KAVYA [facility] [id number] Univers 13:30:00 13:30:00 CHIMADDIE lechuga o f [facility] 2021-03-23 2021-03-23 Outpatient R KAVYA [facility] [id number] Univers 13:30:00 13:30:00 CHILVANA ity o f [facility] 2021-03-22 2021-03-22 Outpatient R ADITYA MEEKS [facility] [id number] Univers 09:20:00 09:20:00 ADITYA MEEKS itchino [facility] 2021-03-22 2021-03-22 [facility] [id number] Univers 09:20:00 09:20:00 ADITYA MEEKS itchino [facility] 2021-03-20 2021-03-20 Outpatient R CRISTINA [facility] [id number] Univers 00:00:00 00:00:00 WONDIFUL ity o f [facility] 2021-03-18 2021-03-18 Case [facility] 1.2.840.114 [id number] Univers 00:00:00 00:00:00 Management Wondiful A HEALTH 350.1.13.10 ity of [place] 4.2.7.2.686 [place] TOÑO?BLEA [phone] [facility] [address] MEDICAL OFFICE [facility] 2021-03-16 2021-03-16 Research Assistant Member Lab, [facility] 1.2.840.1 14 [id number] [facility] 11:16:07 11:31:07 Visit CristinaClaudette A HEALTH 350.1.13.1 0 ity of [place] 4.2.7.2.686 [place] TOÑO?BLEA [phone] Ar alessandraaliyah [place] [address] [place] [address] MEDICAL OFFICE BUILDING 2021-03-16 2021-03-16 Outpatient R CRISTINA [facility] [id number] Univers 11:30:00 11:30:00 WONDIFUL ity o susan [facility] 2021-03-16 2021-03-16 Outpatient R CRISTINA [facility] [id number] Univers 11:00:00 11:14:45 WONDIFUL ity o susan [facility] 2021-03-16 2021-03-16 Office [facility] 1.2.840.114 [id number] Univers 10:00:58 11:14:45 Visit Wondiful A HEALTH 350.1.13.10 ity of [place] 4.2.7.2.686 [place] TOÑO?BLEA [id number] [address] OFFICE [facility] 2021-03-16 2021-03-16 Patient [facility] 1.2.840.114 [id number] Univers 00:00:00 00:00:00 Secure Msg Wondiful A HEALTH 350.1.13.10 ity of [place] 4.2.7.2.686 [place] TOÑO?BLEA [phone] [address] 2021-03-02 2021-03-02 Outpatient R CRISTINA [facility] [id number] Univers 16:15:00 16:15:00 WONDIFUL ity o f [facility] 2021-02-28 2021-02-28 Outpatient R MITCHELL [facility] [id number] Univers 18:30:00 18:30:00 [facility] 2021-02-28 2021-02-28 Telephone [facility] 1..840.114 [id number] Univers 00:00:00 00:00:00 Wondiful A Health 350.1.13.10 ity of [place] 4.2.7.2.686 [place] as Toño?Blea [id number] [address] 2021-02-27 2021-02-27 Outpatient R STEPHANY [facility] [id number] Univers 09:00:00 09:00:00 AMELIA ity [facility] 2021-02-23 2021-02-23 Telephone [facility] 1..840.114 [id number] Univers 00:00:00 00:00:00 Wondiful A Health 350.1.13.10 ity of [place] 4.2.7.2.686 [place] Toño?Blea [id number] [address] 2021-02-10 2021-02-10 Emergency Kaycee Méndez [facility] 1..840.114 [id number] Univers 18:12:00 23:39:00 Sharlene [place] 350.1.13.10 i ty of [place] 4.2.7.2.686 [place] [phone] [facility] [address] 2021-02-09 2021-02-09 Hospital [facility] 1.2.254.884 [id number] Univers 13:40:00 23:59:00 Encounter Wondiful A Health 350.1.13.10 ity of [place] 4.2.7.2.686 [place] Toño?Blea [phone] Ar whit [place] [address] Medical Office [facility] 2021-02-09 2021-02-09 Research Assistant Member Lab, Ang - Db [facility] 1.2.840.1 [id number] Univers 13:49:05 14:04:05 Visit CristinaClaudette Kassandra Health 350.1.13.1 0 ity of [place] 4.2.7.2.686 [place] Toño?Blea [phone] Ar dicaliyah [place] [address] [facility] 2021-02-09 2021-02-09 Office [facility] 1.2.840.114 [id number] [facility] 12:23:13 13:47:12 Visit Brandenful A Health 350.1.13.10 ity of [place] 4.2.7.2.686 [place] as Toño?Blea [phone] Ar whit [place] 044 [facility] Office [facility] 2021-02-09 2021-02-09 Outpatient R CRISTINA [facility] [id number] Univers 13:00:00 13:00:00 WONDIFUL ity o f [facility] 2021-02-08 2021-02-08 Outpatient R ADITYA MEEKS [facility] [id number] Univers 10:20:00 10:20:00 ADITYA MEEKS [facility] 2021-02-02 2021-02-02 Outpatient R YANELI [facility] [id number] Univers 10:30:00 10:30:00 SKYLAR lechuga [facility] 2021-02-02 2021-02-02 Telephone [facility] 1.2.840.114 [id number] Univers 00:00:00 00:00:00 Wondiful A Health 350.1.13.10 ity of [place] 4.2.7.2.686 [place] Toño?Blea [phone] Ar whit [place] 044 [facility] Office [facility] 2021-02-01 2021-02-01 Outpatient R YANELI [facility] [id number] Univers 08:30:00 08:30:00 SKYLAR ity of [facility] 2021-01-31 2021-01-31 Urgent [facility] 1.2.840.114 [id number] Univers 18:44:04 19:41:26 Care [facility] 350.1.13.10 i ty of [place] 4.2.7.2.686 [place] Toño?Blea [phone] [facility] [place] 370 [facility] Office [facility] 2021-01-31 2021-01-31 Out[facility] [id number] Univers 19:00:00 19:00:00 FLACO ity o f [facility] 2021-01-31 2021-01-31 Telephone [facility] .2.840.114 [id number] Univers 00:00:00 00:00:00 Wondiful A Health 350.1.13.10 ity of [place] 4.2.7.2.686 [place] Toño?Blea [id number] [facility] 044 [facility] Office [facility] 2021-01-30 2021-01-30 Telephone [facility] 1.2.161.642 [id number] Univers 00:00:00 00:00:00 Sendil MiracleHPilar [place] 350.1.13.10 ity of [place].2.[place].2.[place] [phone] Ar dicaliyah nal 059 [facility] 2021-01-26 2021-01-26 Outpatient [facility] [id number] Univers 14:00:00 14:00:00 SENDIL ity of [facility] 2021-01-25 2021-01-25 Outpatient R [facility] [id number] Univers 15:00:00 15:00:00 ity of [facility] 2021-01-20 2021-01-20 Telemedici [facility] 1.2.840.114 [id number] Univers 16:51:22 17:12:41 ne Visit Skylar [facility] 350.1.13.10 ity of [place] 4.2.7.2.686 [place] Toño?Blea [phone] Ar alessandraaliyah [facility] [address] Medical Office [facility] 2021-01-20 2021-01-20 Outpatient [facility] [id number] Univers 16:30:00 16:30:00 [facility] 2021-01-19 2021-01-19 Outpatient [facility] [id number] Univers 10:15:00 10:15:00 KAYLEY [facility] 2021-01-14 2021-01-14 JORDAN Guzman 1.2.840.114 [id number] Univers 00:00:00 00:00:00 Management Kassandra Robert YAZMIN 350.1.13.10 ity of [facility] 4.2.7.2.686 [place] as [phone] [facility] [address] 2021-01-12 2021-01-12 Emergency [facility] 1.2.053.711 [id number] Univers 16:10:00 19:45:00 Karin Lawson 350.1.13.10 i ty [facility] 4.2.7.2.686 [place] [phone] [facility] [address] 2021-01-12 2021-01-12 Outpatient Farzana MEDRANO [facility] [id number] Univers 15:20:00 15:20:00 [facility]ANA [facility] 2021-01-12 2021-01-12 Urgent Cyrilzahida Bjenrique [facility] 1.2.840.114 [id number] Univers 14:46:57 15:06:57 Noelle MedranoIleana Lanzaloya.com 350.1.13.10 ity of [place] 4.2.7.2.686 Amrtin as Toño?Blea [phone] Ar alessandraaliyah amarjit [address] [facility] 2020-12-26 2020-12-26 Outpatient R PONCE [facility] [id number] Univers 15:30:00 16:13:32 SENDIL ity [facility] 2020-12-26 2020-12-26 Office [facility] 1.2.840.114 [id number] Univers 15:30:00 16:13:32 Visit Sendil Cuate [place] 350.1.13.10 ity [facility] 4.2.7.2.[place] [phone] Ar dic[address] 2020-12-26 2020-12-26 Office [facility] 1.2.840.114 [id number] Univers 15:00:32 16:13:32 Visit Sendil Cuate Lawson 350.1.13.10 ity [facility] 4.2.7.2.[place] [phone] Ar dic[address] 2020-12-26 2020-12-26 Outpatient [facility] [id number] Univers 15:30:00 15:30:00 SENDIL [facility] 2020-11-22 2020-11-22 Outpatient R APURVA [facility] [id number] Univers 11:00:00 11:00:00 CELINA [facility] 2020-11-10 2020-11-10 Urgent Alissa Collins [facility] 1.2.840.114 [id number] 18:42:46 19:53:43 [facility] 350.1.13.10 [place] 4.2.7.2.686 Professio [phone] nal [address] 2020-11-10 2020-11-10 Outpatient R [facility] [id number] Univers 19:00:00 19:00:00 ity [facility] 2020-10-31 2020-10-31 Emergency Kaycee Méndez [facility] 1.2.840.114 [id number] 18:52:00 22:15:00 Sharlene [place] 350.1.13.10 [place] 4.2.7.2.686 [place] [id number] 084 2020-10-31 2020-10-31 Outpatient R NATASHA [facility] [id number] Univers 19:00:00 19:00:00 CARI lechuga o susan [facility] 2020-10-31 2020-10-31 Orders Doctor JORDAN 1.2.840.114 [id number] 00:00:00 00:00:00 Only Unassigned, YAZMIN 350.1.13.10 [place] [facility] 4.2.7.2.686 [id number] 2020-10-20 2020-10-20 Emergency Kaycee Méndez [facility] 1.2.840.114 [id number] 14:02:00 17:13:00 Sharlene [place] 350.1.13.10 [place] 4.2.7.2.686 [place] [id number] 084 2020-10-14 2020-10-14 Hospital Alicia Prasanna [facility] 1.2.840.114 [id number] 10:00:00 23:59:00 Encounter Jm [place] 350.1.13.10 [place] 4.2.7.2.686 [place] [id number] 806 2020-10-14 2020-10-14 Outpatient Farzana MIXON [facility] [id number] Univers 13:30:00 13:30:00 CELINA lechuga [facility] 2020-10-09 2020-10-09 Emergency [facility] 1.2.481.811 [id number] 12:00:00 15:57:00 Anna Lawson 350.1.13.10 [place] 4.2.7.2.686 [place] [id number] 4 2020-10-06 2020-10-06 Office Prasanna Vargas [facility] 1.2.371.879 [id number] 08:53:00 09:46:44 Visit Jm [place] 350.1.13.10 [place] 4.2.7.2.686 [facility] [phone] [address] 2020-10-06 2020-10-06 Outpatient Farzana VARGAS PRASANNA [facility] [id number] Univers 09:30:00 09:30:00 ankush [facility] 2020-10-04 2020-10-04 Outpatient R APURVA [facility] [id number] Univers 14:00:00 14:00:00 CELINA [facility] 2020-09-30 2020-09-30 Outpatient R APURVA [facility] [id number] Univers 10:30:00 10:30:00 CELINA [facility] 2020-09-29 2020-09-29 Outpatient Farzana SHAY [facility] [id number] Univers 13:45:00 13:45:00 PREET [facility] 2020-09-06 2020-09-06 Outpatient R ALICIAPRASANNA [facility] [id number] Univers 15:30:00 15:30:00 [facility] 2020-09-02 2020-09-02 Outpatient DARRION QUIROZ [facility] [id number] Univers 15:40:00 15:40:00 DARRION WYATT [facility] 2020-08-31 2020-08-31 Outpatient Farzana SERRA [facility] [id number] Univers 10:30:00 10:30:00 S[facility]IL [facility] 2020-08-18 2020-08-18 Outpatient Farzana VARGAS PRASANNA [facility] [id number] Univers 09:30:00 09:30:00 [facility] 2020-08-11 2020-08-11 Outpatient Farzana VARGAS PRASANNA [facility] [id number] Univers 13:30:00 13:30:00 [facility] 2020-08-04 2020-08-04 Outpatient Farzana FLETCHER [facility] [id number] Univers 14:00:00 14:00:00 SCOTT [facility] 2020-07-28 2020-07-28 Outpatient Farzana SERRA [facility] [id number] Univers 10:30:00 10:30:00 SENDIL [facility] 2020-06-30 2020-06-30 Outpatient Farzana EVANS [facility] [id number] Univers 16:15:00 16:15:00 WONDIFUL ity o f [facility] 2020-06-17 2020-06-17 Outpatient DARRION QUIROZ [facility] [id number] Univers 15:00:00 15:00:00 DARRION WYATT [facility] 2020-06-16 2020-06-16 Outpatient Farzana SERRA [facility] [id number] Univers 15:30:00 15:30:00 SENDIL [facility] 2020-06-09 2020-06-09 Outpatient R NAIFNI [facility] [id number] Univers 12:30:00 12:30:00 [facility] 2020-06-08 2020-06-08 Outpatient R NAIFNATHALIAE [facility] [id number] Univers 08:00:00 08:00:00 [facility] 2020-06-02 2020-06-02 Outpatient Farzana SERRA [facility] [id number] Univers 09:00:00 09:00:00 SENDIL [facility] 2020-05-28 2020-05-28 Outpatient Farzana KAUR [facility] [id number] Univers 10:00:00 10:00:00 CARI ity o f [facility] 2020-05-24 2020-05-24 Outpatient Farzana DISLANATHALIAE [facility] [id number] Univers 10:00:00 10:00:00 [facility] 2020-05-19 2020-05-19 Outpatient OSITO AMARO [facility] [id number] Univers 16:30:00 16:30:00 [facility] 2020-05-17 2020-05-17 Outpatient DARRION QUIROZ [facility] [id number] Univers 13:00:00 13:00:00 DARRION WYATT [facility] 2020-05-16 2020-05-16 Outpatient Farzana EVANS [facility] [id number] Univers 16:00:00 16:00:00 WONDIFUL ity o f [facility] 2020-05-08 2020-05-08 Emergency X VIRGIE [facility] ERT [id number] Univers 10:24:00 13:03:00 OLAMIDE [facility] 2020-05-03 2020-05-03 Outpatient Farzana EVANS [facility] [id number] Univers 15:00:00 15:00:00 WONDIFUL ity o f [facility] 2020-04-30 2020-05-01 Outpatient X KAVYA [facility] JOSÉ MANUEL [id number] Univers 11:14:00 15:50:00 RODRIGUEZ ity [facility] 2020-04-30 2020-04-30 Outpatient R JASPAL, [facility] [id number] Univers 10:20:00 10:20:00 [facility]ES [facility] 2020-04-30 2020-04-30 Outpatient R JASPAL, [facility] [id number] Univers 10:15:00 10:15:00 ROSALES [facility] 2020-04-28 2020-04-28 Outpatient R OSITO HITCHCOCK [facility] [id number] Univers 14:00:00 14:00:00 [facility] 2020-04-25 2020-04-25 Outpatient R CRISTINA, [facility] [id number] Univers 16:15:00 16:15:00 WONDIFUL ity o f [facility] 2020-04-18 2020-04-18 Outpatient R OSITO HITCHCOCK [facility] [id number] Univers 10:00:00 10:00:00 [facility] 2020-04-15 2020-04-15 Outpatient R PONCE, [facility] [id number] Univers 10:30:00 10:30:00 SENDIL [facility] 2020-04-12 2020-04-13 Outpatient X MARICRUZ DELUNA [facility] [id number] Univers 13:38:00 16:25:00 [facility] 2020-03-17 2020-03-17 Outpatient R DEYVI, [facility] [id number] Univers 16:15:00 16:15:00 TETO [facility] 2020-03-04 2020-03-04 RefOsito Centeno [facility] [id number] 00:00:00 00:00:00 MULTISPEC [id number] IALTY [id number] [place] [id number] [facility] 2020-02-25 2020-02-25 Outpatient R JACOB HITCHCOCKR [facility] [id number] Univers 16:00:00 16:00:00 [facility] R MANUELGRACE [facility] [id number] Univers 14:00:00 14:00:00 [facility] 2020-02-08 2020-02-08 Outpatient R PRASANNA VARGAS [facility] [id number] Univers 10:30:00 10:30:00 [facility] 2020-02-04 2020-02-04 Outpatient R JACOB HITCHCOCKR [facility] [id number] Univers 13:30:00 13:30:00 [facility] 2020-01-23 2020-01-23 Outpatient R [facility] [id number] Univers 10:15:00 10:15:00 [facility] 2020-01-21 2020-01-21 Outpatient R JACOB HITCHCOCKR [facility] [id number] Univers 13:00:00 13:00:00 [facility] 2020-01-14 2020-01-14 Outpatient R OSITO HITCHCOCK [facility] [id number] Univers 16:00:00 16:00:00 [facility] 2020-01-05 2020-01-05 Outpatient R PRASANNA VARGAS [facility] [id number] Univers 13:45:00 13:45:00 [facility] 2019-12-03 2019-12-03 Outpatient R AKINSIPE, [facility] [id number] Univers 10:30:00 10:30:00 CRICKET ity o f [facility] 2019-11-27 2019-11-27 Outpatient R DEYVI [facility] [id number] Univers 11:00:00 11:00:00 [facility] 2019-11-25 2019-11-25 Outpatient R DEYVI [facility] [id number] Univers 08:00:00 08:00:00 [facility] 2019-11-18 2019-11-18 Outpatient R DEYVI [facility] [id number] Univers 10:00:00 10:00:00 [facility] 2019-09-02 2019-09-02 Outpatient R AKINSIPE, [facility] [id number] Univers 11:00:00 11:00:00 CRICKET ity o f [facility] 2019-08-14 2019-08-14 Outpatient R DEYVI, [facility] [id number] Univers 10:15:00 10:15:00 TETO [facility] 2019-08-13 2019-08-13 Outpatient R AKINSIPE, [facility] [id number] Univers 11:00:00 11:00:00 CRICKET ity o f [facility] 2019-08-12 2019-08-12 Outpatient R [facility] [id number] Univers 09:00:00 09:00:00 [facility] 2019-07-20 2019-07-20 Outpatient P PRASANNA VARGAS [facility] [id number] Univers 16:06:00 16:06:00 [facility] 2019-07-20 2019-07-20 Outpatient R AKINSIPE, [facility] [id number] Univers 08:15:00 08:15:00 CRICKET ity o f [facility] 2019-07-13 2019-07-13 Outpatient R AKINSIPE, [facility] [id number] Univers 08:00:00 08:00:00 CRICKET ity o f [facility] 2019-07-12 2019-07-12 Outpatient PRASANNA HERRERA [facility] [id number] Univers 13:39:00 13:39:00 [facility] 2019-07-06 2019-07-06 Outpatient R AKINSIPE, [facility] [id number] Univers 13:00:00 13:00:00 CRICKET ity o f [facility] 2019-06-13 2019-06-13 Emergency X YARIMA, [facility] ERT [id number] Univers 10:40:46 12:35:00 SARAHI [facility] 2019-05-13 2019-05-14 Outpatient P PRASANNA VARGAS [facility] [id number] Univers 23:07:00 09:15:00 [facility] Results Test Description Test Time Test Comments Results Result Comments Source TEST, SERUM 2022-08-01 00:23:34 Test Item Value Reference Range Interpretation Comme nts PREG SERUM (test code = 8721604700) Negative WESLEY (test code = WESLEY) Less than 10 IU/L. ?If low titer or ectopic is suspected, resubmit specimen in 48-72 hours. [facility]. METABOLIC PANEL ([id number])2022-07-31 23:58:12 Test Item Value Reference Range Interpretation Comments NA (test code = 140 mmol/L 135-145 7348287891) K (test code = 3.6 mmol/L 3.5-5.0 1910273553) CL (test code = 106 mmol/L 98-108 5705723946) CO2 TOTAL (test code = 21 mmol/L 23-31 L 0487314423) AGAP (test code = 13 2-16 0617763541) BUN (test code = 8 mg/dL 7-23 7469768777) GLUCOSE (test code = 90 mg/dL 70-110 7375236463) CREATININE (test code = 0.90 mg/dL 0.50-1.04 2444592257) TOTAL BILI (test code = 0.5 mg/dL 0.1-1.0 5038875147) CALCIUM (test code = 9.0 mg/dL 8.6-10.6 1705882099) T PROTEIN (test code = 7.8 g/dL 6.3-8.2 9970540394) ALBUMIN (test code = 4.6 g/dL 3.5-5.0 7348436249) ALK PHOS (test code = 63 U/L 34-122 7903019845) ALTv (test code = 23 U/L 5-35 1742-6) AST(SGOT) (test code = 27 U/L 13-40 9958121395) eGFR (test code = 75.1 mL/min/1.73m2 6411597873) WESLEY (test code = WESLEY) Association of [...] tests). Lab Interpretation Abnormal (test code = 11322-5) [facility] Test Item Value Reference Range Interpretation Comments LIPASE (test code = 2192491340) 55 U/L 0-220 Lab Interpretation (test code = Normal 56388-0) [facility] WITH [id number] 23:47:31 Test Item Value Reference Range Interpretation Comments WBC (test code = 5.64 See_Comment [Automated 7218-2) message] The sy stem which generated this result transmitted reference range : 4.30 - 11.10 10*3/?L. The reference range was not used to interpret this result as normal/abnormal . RBC (test code = 4.51 See_Comment [Automated 782-9) message] The sy stem which generated this [...] RDW-SD (test code = 42.5 fL 39.0-49.9 60371-8) RDW-CV (test code = 13.0 % 12.0-15.5 788-0) PLT (test code = 339 See_Comment [Automated 777-3) message] The sy stem which generated this result transmitted reference range : 166 - 358 10*3/ ?L. The reference r david was not used to interpret this result as normal/abnormal . MPV (test code = 9.4 fL 9.5-12.9 L 03877-3) NRBC/100 WBC (test 0.0 See_Comment [Automat ed code = 3259972237) message] The system which generated this result transmitted reference range : 0.0 - 10.0 /100 WBCs. The refer ence range was not u sed to interpret th is result as normal/abnormal . NRBC x10^3 (test code See_Comment [Auto mated = 6707945949) message] The s ystem which generated this result transmitted reference range : 10*3/?L. The reference range was not used to interpret this result as normal/abnormal . GRAN MAT (NEUT) % 51.2 % (test code = 770-8) IMM GRAN % (test code 0.20 % = 1682262253) LYMPH % (test code = 36.5 % 736-9) MONO % (test code = 5.7 % 5905-5) EOS % (test code = 5.9 % 713-8) BASO % (test code = 0.5 % 706-2) GRAN MAT x10^3(ANC) 2.89 10*3/uL 1.88-7.09 (test code = 4089741748) IMM GRAN x10^3 (test 0.00-0.06 code = 6956112802) LYMPH x10^3 (test code 2.06 10*3/uL 1.32-3.29 = 731-0) MONO x10^3 (test code 0.32 10*3/uL 0.33-0.92 L = 742-7) EOS x10^3 (test code = 0.33 10*3/uL 0.03-0.39 711-2) BASO x10^3 (test code 0.03 10*3/uL 0.01-0.07 = 704-7) Lab Interpretation Abnormal (test code = 33729-7) [id number] 16:14:38 Test Item Value Reference Range Interpretation Comments POCT Molecular Strep (test code = Negative Negative 30420-6) Lab Interpretation (test code = Normal 41936-1) [facility]. METABOLIC PANEL ([id number])2022-05-05 19:35:37 Test Item Value Reference Range Interpretation Comments NA (test code = 139 mmol/L 135-145 3217776504) K (test code = 4.4 mmol/L 3.5-5.0 2491464660) CL (test code = 104 mmol/L 98-108 7239311339) CO2 TOTAL (test code = 22 mmol/L 23-31 L 9640681103) AGAP (test code = 2-16 9103736226) BUN (test code = 11 mg/dL 7-23 9476850129) GLUCOSE (test code = 95 mg/dL 70-110 3594535529) CREATININE (test code = 0.71 mg/dL 0.50-1.04 3566690277) TOTAL BILI (test code = 0.4 mg/dL 0.1-1.8 4760074727) CALCIUM (test code = 9.1 mg/dL 8.6-10.6 7063827478) T PROTEIN (test code = 7.9 g/dL 6.3-8.2 7819127596) ALBUMIN (test code = 4.7 g/dL 3.5-5.0 3073252686) ALK PHOS (test code = 114 U/L 34-122 0003087645) ALTv (test code = 21 U/L 5-35 1742-6) AST(SGOT) (test code = 21 U/L 13-40 3938440974) eGFR (test code = mL/min/1.73m2 9171589439) WESLEY (test code = WESLEY) Association of [...] tests). Lab Interpretation Abnormal (test code = 09364-0) [facility] WITH [id number] 19:25:37 Test Item Value Reference Range Interpretation Comments WBC (test code = See_Comment [Automated 3082-2) message] The sy stem which generated this result transmitted reference range : 4.30 - 11.10 10*3/?L. The reference range was not used to interpret this result as normal/abnormal . RBC (test code = See_Comment [Automated 981-8) message] The sy stem which generated this [...] RDW-SD (test code = 41.7 fL 39.0-49.9 73305-5) RDW-CV (test code = 12.7 % 12.0-15.5 788-0) PLT (test code = See_Comment H [Automated 777-3) message] The sy stem which generated this result transmitted reference range : 166 - 358 10*3/ ?L. The reference r david was not used to interpret this result as normal/abnormal . MPV (test code = 8.8 fL 9.5-12.9 L 49647-1) NRBC/100 WBC (test See_Comment [Automat ed code = 0929533893) message] The system which generated this result transmitted reference range : 0.0 - 10.0 /100 WBCs. The refer ence range was not u sed to interpret th is result as normal/abnormal . NRBC x10^3 (test code See_Comment [Auto mated = 1737617553) message] The s ystem which generated this result transmitted reference range : 10*3/?L. The reference range was not used to interpret this result as normal/abnormal . GRAN MAT (NEUT) % 56.1 % (test code = 770-8) IMM GRAN % (test code 0.40 % = 2789722871) LYMPH % (test code = 29.9 % 736-9) MONO % (test code = 5.4 % 5905-5) EOS % (test code = 7.8 % 713-8) BASO % (test code = 0.4 % 706-2) GRAN MAT x10^3(ANC) 3.75 10*3/uL 1.88-7.09 (test code = 3235359193) IMM GRAN x10^3 (test 0.03 10*3/uL 0.00-0.06 code = 5224146791) LYMPH x10^3 (test code 2.00 10*3/uL 1.32-3.29 = 731-0) MONO x10^3 (test code 0.36 10*3/uL 0.33-0.92 = 742-7) EOS x10^3 (test code = 0.52 10*3/uL 0.03-0.39 H 711-2) BASO x10^3 (test code 0.03 10*3/uL 0.01-0.07 = 704-7) Lab Interpretation Abnormal (test code = 89279-8) [id number] 19:00:00 Test Item Value Reference Range Interpretation Comments POCT PREG (test code = 1605) negative On board controls acceptable with present C Line (test code = 3574) POCT PREG LOT # (test code = 3575) [id number] POCT PREG TEST DATE (test 08-11-2023 code = 3576) Lab Interpretation (test code = Normal 83586-5) [facility] WITH [id number] 15:21:11 Test Item Value Reference Range Interpretation Comments WBC (test code = See_Comment [Automated 3518-2) message] The sy stem which generated this result transmitted reference range : 4.30 - 11.10 10*3/?L. The reference range was not used to interpret this result as normal/abnormal . RBC (test code = See_Comment [Automated 419-8) message] The sy stem which generated this [...] RDW-SD (test code = 42.6 fL 39.0-49.9 31542-0) RDW-CV (test code = 12.9 % 12.0-15.5 788-0) PLT (test code = See_Comment H [Automated 707-3) message] The sy stem which generated this result transmitted reference range : 166 - 358 10*3/ ?L. The reference r david was not used to interpret this result as normal/abnormal . MPV (test code = 9.1 fL 9.5-12.9 L 80470-0) NRBC/100 WBC (test See_Comment [Automat ed code = 8777715945) message] The system which generated this result transmitted reference range : 0.0 - 10.0 /100 WBCs. The refer ence range was not u sed to interpret th is result as normal/abnormal . NRBC x10^3 (test code See_Comment [Auto mated = 8849597304) message] The s ystem which generated this result transmitted reference range : 10*3/?L. The reference range was not used to interpret this result as normal/abnormal . GRAN MAT (NEUT) % 56.8 % (test code = 770-8) IMM GRAN % (test code 0.30 % = 9280931004) LYMPH % (test code = 29.5 % 736-9) MONO % (test code = 4.3 % 5905-5) EOS % (test code = 8.3 % 713-8) BASO % (test code = 0.8 % 706-2) GRAN MAT x10^3(ANC) 3.57 10*3/uL 1.88-7.09 (test code = 6339849688) IMM GRAN x10^3 (test 0.00-0.06 code = 5707980328) LYMPH x10^3 (test code 1.85 10*3/uL 1.32-3.29 = 731-0) MONO x10^3 (test code 0.27 10*3/uL 0.33-0.92 L = 742-7) EOS x10^3 (test code = 0.52 10*3/uL 0.03-0.39 H 711-2) BASO x10^3 (test code 0.05 10*3/uL 0.01-0.07 = 704-7) Lab Interpretation Abnormal (test code = 25702-0) [facility]. METABOLIC PANEL ([id number])2022-04-26 15:12:13 Test Item Value Reference Range Interpretation Comments NA (test code = 141 mmol/L 135-145 9902409645) K (test code = 3.4 mmol/L 3.5-5.0 L 3379679383) CL (test code = 104 mmol/L 98-108 9140180157) CO2 TOTAL (test code = 23 mmol/L 23-31 7913618086) AGAP (test code = 2-16 3303813160) BUN (test code = 9 mg/dL 7-23 5234801849) GLUCOSE (test code = 101 mg/dL 70-110 8315235969) CREATININE (test code = 0.82 mg/dL 0.50-1.04 4603869664) TOTAL BILI (test code = 0.7 mg/dL 0.1-1.6 9913800520) CALCIUM (test code = 9.3 mg/dL 8.6-10.6 7484352775) T PROTEIN (test code = 8.1 g/dL 6.3-8.2 2527880918) ALBUMIN (test code = 4.7 g/dL 3.5-5.0 1087430849) ALK PHOS (test code = 108 U/L 34-122 1756392082) ALTv (test code = 24 U/L 5-35 1742-6) AST(SGOT) (test code = 49 U/L 13-40 H 6537533866) eGFR (test code = mL/min/1.73m2 6084491808) WESLEY (test code = WESLYE) Association of Glomerular Filtration Rate (GFR) and [...] tests). Lab Interpretation Abnormal (test code = 86159-6) [facility] [id number] 14:45:00 Test Item Value Reference Range Interpretation Comments POCT PREG (test code = 1605) negative On board controls acceptable with present C Line (test code = 3574) POCT PREG LOT # (test code = 3575) [id number] POCT PREG TEST DATE (test 08/11/2023 code = 3576) Lab Interpretation (test code = Normal 28019-5) [facility] [id number] 01:22:00 Test Item Value Reference Range Interpretation Comments POCT PREG (test code = 1605) Negative On board controls acceptable with Present C Line (test code = 3574) POCT PREG LOT # (test code = 3575) [id number] POCT PREG TEST DATE (test 08-11-2023 code = 3576) Lab Interpretation (test code = Normal 47839-7) [facility] METABOLIC PANEL (NA, K, CL, CO2, GLUCOSE, BUN, CREATININE, CA)2022-04-07 23:01:10 Test Item Value Reference Range Interpretation Comments NA (test code = 138 mmol/L 135-145 3399140873) K (test code = 4.3 mmol/L 3.5-5.0 8715662350) CL (test code = 107 mmol/L 98-108 5603368580) CO2 TOTAL (test code = 20 mmol/L 23-31 L 2108058788) AGAP (test code = 2-16 6763399903) BUN (test code = 9 mg/dL 7-23 8662877541) GLUCOSE (test code = 204 mg/dL 70-110 H 8822769839) CREATININE (test code = 0.74 mg/dL 0.50-1.04 6296566092) CALCIUM (test code = 9.1 mg/dL 8.6-10.6 9235904843) eGFR (test code = mL/min/1.73m2 1562041107) WESLEY (test code = WESLEY) Association of [...] tests). Lab Interpretation Abnormal (test code = 59207-0) [facility] WITH [id number] 22:57:34 Test Item Value Reference Range Interpretation Comments WBC (test code = See_Comment [Automated 8683-2) message] The sy stem which generated this [...] RDW-SD (test code = 42.9 fL 39.0-49.9 73129-6) RDW-CV (test code = 13.4 % 12.0-15.5 788-0) PLT (test code = See_Comment H [Automated 777-3) message] The sy stem which generated this result transmitted reference range : 166 - 358 10*3/ ?L. The reference r david was not used to interpret this result as normal/abnormal . MPV (test code = 8.9 fL 9.5-12.9 L 44006-1) NRBC/100 WBC (test See_Comment [Automat ed code = 7018827036) message] The system which generated this result transmitted reference range : 0.0 - 10.0 /100 WBCs. The refer ence range was not u sed to interpret th is result as normal/abnormal . NRBC x10^3 (test code See_Comment [Auto mated = 9461659767) message] The s ystem which generated this result transmitted reference range : 10*3/?L. The reference range was not used to interpret this result as normal/abnormal . GRAN MAT (NEUT) % 88.7 % (test code = 770-8) IMM GRAN % (test code 0.70 % = 1048379327) LYMPH % (test code = 9.4 % 736-9) MONO % (test code = 0.9 % 5905-5) EOS % (test code = 0.1 % 713-8) BASO % (test code = 0.2 % 706-2) GRAN MAT x10^3(ANC) 7.81 10*3/uL 1.88-7.09 H (test code = 5691927610) IMM GRAN x10^3 (test 0.06 10*3/uL 0.00-0.06 code = 7823924156) LYMPH x10^3 (test code 0.83 10*3/uL 1.32-3.29 L = 731-0) MONO x10^3 (test code 0.08 10*3/uL 0.33-0.92 L = 742-7) EOS x10^3 (test code = 0.03-0.39 L 711-2) BASO x10^3 (test code 0.01-0.07 = 704-7) Lab Interpretation Abnormal (test code = 57796-7) [facility] [id number] 14:07:00 Test Item Value Reference Range Interpretation Comments POCT PREG (test code = 1605) negative On board controls acceptable with present C Line (test code = 3574) POCT PREG LOT # (test code = 3575) [id number] POCT PREG TEST DATE (test 08/11/2023 code = 3576) Lab Interpretation (test code = Normal 82003-8) [facility] [id number] 13:52:00 Test Item Value Reference Range Interpretation Comments POCT PREG (test code = 1605) negative On board controls acceptable with C present Line (test code = 3574) Lab Interpretation (test code = Normal 06697-1) [facility] [id number] 14:59:00 Test Item Value Reference Range Interpretation Comments POCT PREG (test code = 1605) negative On board controls acceptable with yes C Line (test code = 3574) POCT PREG LOT # (test code = 3575) [id number] POCT PREG TEST DATE (test 07/11/2023 code = 3576) Lab Interpretation (test code = Normal 43689-4) [facility]. METABOLIC PANEL (34438)2022 17:51:43 Test Item Value Reference Range Interpretation Comments NA (test code = 139 mmol/L 135-145 8963107859) K (test code = 4.1 mmol/L 3.5-5 1180735640) CL (test code = 104 mmol/L 98-108 4616965808) CO2 TOTAL (test code = 22 mmol/L 23-31 L 7503199035) AGAP (test code = 2-16 1764033503) BUN (test code = 7 mg/dL 7-23 8524146014) GLUCOSE (test code = 114 mg/dL 70-110 H 8628855281) CREATININE (test code = 0.69 mg/dL 0.5-1.04 8603482496) TOTAL BILI (test code = 0.4 mg/dL 0.1-1.8 9503914727) CALCIUM (test code = 9.7 mg/dL 8.6-10.6 2800194392) T PROTEIN (test code = 7.2 g/dL 6.3-8.2 0771410835) ALBUMIN (test code = 4.6 g/dL 3.5-5 3810013370) ALK PHOS (test code = 65 U/L 34-122 2605162946) ALTv (test code = 15 U/L 5-35 1742-6) AST(SGOT) (test code = 19 U/L 13-40 2605580039) eGFR (test code = mL/min/1.73m2 5511381587) WESLEY (test code = WESLEY) Association of [...] tests). Lab Interpretation Abnormal (test code = 80024-9) [facility] WITH [id number] 17:40:24 Test Item Value Reference Range Interpretation [...] RDW-SD (test code = 43.1 fL 39-49.9 07486-0) RDW-CV (test code = 13.2 % 12-15.5 788-0) PLT (test code = See_Comment [Automated 777-3) message] The sy stem which generated this result transmitted reference range : 166 - 358 10*3/ ?L. The reference r david was not used to interpret this result as normal/abnormal . MPV (test code = 9.5 fL 9.5-12.9 64446-0) NRBC/100 WBC (test See_Comment [Automat ed code = 6279356713) message] The system which generated this result transmitted reference range : 0.0 - 10.0 /100 WBCs. The refer ence range was not u sed to interpret th is result as normal/abnormal . NRBC x10^3 (test code See_Comment [Auto mated = 1344264108) message] The s ystem which generated this result transmitted reference range : 10*3/?L. The reference range was not used to interpret this result as normal/abnormal . GRAN MAT (NEUT) % 57.8 % (test code = 770-8) IMM GRAN % (test code 0.20 % = 1741283937) LYMPH % (test code = 30.8 % 736-9) MONO % (test code = 5.1 % 5905-5) EOS % (test code = 5.6 % 713-8) BASO % (test code = 0.5 % 706-2) GRAN MAT x10^3(ANC) 3.61 10*3/uL 1.88-7.09 (test code = 5931781622) IMM GRAN x10^3 (test 0-0.06 code = 1169067673) LYMPH x10^3 (test code 1.92 10*3/uL 1.32-3.29 = 731-0) MONO x10^3 (test code 0.32 10*3/uL 0.33-0.92 L = 742-7) EOS x10^3 (test code = 0.35 10*3/uL 0.03-0.39 711-2) BASO x10^3 (test code 0.03 10*3/uL 0.01-0.07 = 704-7) Lab Interpretation Abnormal (test code = 64258-1) [id number] 17:27:00 Test Item Value Reference Range Interpretation Comments POCT PREG (test code = 1605) negative On board controls acceptable with present C Line (test code = 3574) POCT PREG LOT # (test code = 3575) [id number] POCT PREG TEST DATE (test code = 3576) Lab Interpretation (test code = Normal 16727-6) [facility] 12:45:21 Test Item Value Reference Range Interpretation Comments LIPASE (test code = 0640453915) 41 U/L 0-220 Lab Interpretation (test code = Normal 34985-6) [facility] [id number] 10:57:00 Test Item Value Reference Range Interpretation Comments POCT PREG (test code = 1605) Negative On board controls acceptable with Present C Line (test code = 3574) POCT PREG LOT # (test code = 3575) [id number] POCT PREG TEST DATE (test 03/12/2023 code = 3576) Lab Interpretation (test code = Normal 32339-3) [facility] METABOLIC PANEL (NA, K, CL, CO2, GLUCOSE, BUN, CREATININE, CA)2022-01-18 10:56:51 Test Item Value Reference Range Interpretation Comments NA (test code = 137 mmol/L 135-145 7291753474) K (test code = 4.6 mmol/L 3.5-5 Slight 7559057536) hemolysis CL (test code = 108 mmol/L 98-108 3311935388) CO2 TOTAL (test code 22 mmol/L 23-31 L = 7679320104) AGAP (test code = 2-16 3850735251) BUN (test code = 11 mg/dL 7-23 Slight 4099081529) hemolysis GLUCOSE (test code = 83 mg/dL 70-110 6422486355) CREATININE (test code 0.68 mg/dL 0.5-1.04 = 4486896896) CALCIUM (test code = 8.8 mg/dL 8.6-10.6 9134508288) eGFR (test code = mL/min/1.73m2 1975329520) WESLEY (test code = WESLEY) Association of [...] tests). Lab Interpretation Abnormal (test code = 80586-3) [facility]22688[facility] (ALB,T.PRO,BILI T,BU/BC,ALT,AST,ALK PHOS)2022-01-18 10:56:51 Test Item Value Reference Range Interpretation Comments TOTAL BILI (test code = 8668389571) 0.6 mg/dL 0.1-1.1 BILI UNCON (test code = 6898833191) 0.1 mg/dL 0.1-1.1 BILI CONJ (test code = 8516219598) 0.0 mg/dL 0-0.3 T PROTEIN (test code = 4817885524) 8.6 g/dL 6.3-8.2 H ALBUMIN (test code = 8323782421) 5.1 g/dL 3.5-5 H ALK PHOS (test code = 6590697416) 79 U/L 34-122 ALTv (test code = 1742-6) 117 U/L 5-35 H AST(SGOT) (test code = 6939558330) 163 U/L 13-40 H Lab Interpretation (test code = Abnormal 59379-2) [facility] [id number] 10:54:25 Test Item Value Reference Range Interpretation Comments PREG SERUM (test code Negative = 3984306159) WESLEY (test code = WESLEY) Less than 10 IU/L. ?If low titer or ectopic is suspected, resubmit specimen in 48-72 hours. [facility] WITH [id number] 10:40:49 Test Item Value Reference Range Interpretation [...] RDW-SD (test code = 45.3 fL 39-49.9 43157-8) RDW-CV (test code = 14.5 % 12-15.5 788-0) PLT (test code = See_Comment [Automated 777-3) message] The sy stem which generated this result transmitted reference range : 166 - 358 10*3/ ?L. The reference r david was not used to interpret this result as normal/abnormal . MPV (test code = 9.5 fL 9.5-12.9 22267-7) NRBC/100 WBC (test See_Comment [Automat ed code = 2624978120) message] The system which generated this result transmitted reference range : 0.0 - 10.0 /100 WBCs. The refer ence range was not u sed to interpret th is result as normal/abnormal . NRBC x10^3 (test code See_Comment [Auto mated = 3896384253) message] The s ystem which generated this result transmitted reference range : 10*3/?L. The reference range was not used to interpret this result as normal/abnormal . GRAN MAT (NEUT) % 47.6 % (test code = 770-8) IMM GRAN % (test code 0.60 % = 4206076106) LYMPH % (test code = 39.9 % 736-9) MONO % (test code = 5.9 % 5905-5) EOS % (test code = 5.3 % 713-8) BASO % (test code = 0.7 % 706-2) GRAN MAT x10^3(ANC) 4.45 10*3/uL 1.88-7.09 (test code = 8362421844) IMM GRAN x10^3 (test 0.06 10*3/uL 0-0.06 code = [id number]) LYMPH x10^3 (test code 3.74 10*3/uL 1.32-3.29 H = 731-0) MONO x10^3 (test code 0.55 10*3/uL 0.33-0.92 = 742-7) EOS x10^3 (test code = 0.50 10*3/uL 0.03-0.39 H 711-2) BASO x10^3 (test code 0.07 10*3/uL 0.01-0.07 = 704-7) Lab Interpretation Abnormal (test code = 17497-7) [facility] [id number] 18:31:00 Test Item Value Reference Range Interpretation Comments POCT PREG (test code = 1605) Negative On board controls acceptable with C Yes Line (test code = 3574) POCT PREG LOT # (test code = 3575) POCT PREG TEST DATE (test code = 3576) [facility] URINALYSIS W/O SPECIFIC [id number] 18:31:00 Test Item Value Reference Range Interpretation [...] code = 3257) Trace Negative - Negative [facility]"
[2022-11-10 07:50] LABS: Specific Gravity 1.024 (1.005-1.030); Urine Bacteria 20-50 /HPF (<20); Urine Bilirubin NEGATIVE (Negative); Urine Blood 2+ (Negative); Urine Clarity Extremely Turbid (Clear); Urine Color Yellow (Yellow); Urine Glucose NEGATIVE (Negative); Urine Mucus 3+ /HPF (None Seen); Urine Protein 1+ (Negative); Urine Urobilinogen Normal (Normal)
[2022-11-10 07:56] LABS: Absolute Lymphocytes (CBC) 1.6 K/uL (0.7-4.9); Hematocrit 43.4 % (36.0-45.0); Lymphocytes % 33.2 % (15.3-44.8); MCV 86.9 fL (80-100); MPV 7.5 fL (7.6-11.3); RBC Red Blood Cell Count 4.99 M/uL (3.86-4.86)
[2022-11-10] MEDS ORDERED: NA CHLORIDE 0.9% 1,000 ML ONE ×2 (07:59→09:53)
[2022-11-10] MEDS ORDERED: ONDANSETRON 4 MG/2 ML VIAL ONE ×2 (07:59→08:18)
[2022-11-10] MEDS ORDERED: MORPHINE 4 MG/ML SYR ONE ×2 (07:59→08:18)
[2022-11-10 08:12] LABS: Albumin 4.4 g/dL (3.4-5.0); Bilirubin Total 0.4 mg/dL (0.2-1.0); Protein, Total 8.6 g/dL (6.4-8.2)
[2022-11-10 08:13] LABS: Potassium 3.5 mEq/L (3.5-5.1)
--- NOTE | 2022-11-10 08:23 | RAD REPORT ---
EXAM DESCRIPTION: CT - Stone Protocol - 11/10/2022 8:00 am CLINICAL HISTORY: right flank pain COMPARISON: Abdomen Pelvis W Contrast dated 07/02/2022; Abdomen Pelvis W Contrast dated 05/24/2022 ; Abdomen Pelvis W Contrast dated 03/22/2022; Stone Protocol dated 02/17/2022 TECHNIQUE: Thin cut axial CT imaging of the abdomen and pelvis was performed without IV contrast. Mu ltiplanar reformats were generated and reviewed. All CT scans are performed using dose optimization technique as appropriate and may include automated exposure control or mA/KV adjustment according to patient size. FINDINGS: No suspicious findings in the lung bases. The liver, spleen, and pancreas show no suspicious findings. Gallbladder and biliary tree are also wi thout suspicious finding. Symmetric renal contour, without suspicious parenchymal findings within limits of noncontrast techniq ue. No hydroureteronephrosis. 4 millimeter right superior pole calculus. No dilated bowel loops or bowel wall thickening. No free air, free fluid or inflammatory stranding. N o hernia, mass or bulky lymphadenopathy. The urinary bladder is without significant finding. No suspicious bony findings. IMPRESSION: No acute intra-abdominal process. Nonobstructing right superior renal pole 4 millimeter calculus.
[2022-11-10] MEDS ORDERED: CEFTRIAXONE 1000 MG/VIAL ONE (09:02)
[2022-11-10] MEDS ORDERED: HYDROMORPHONE HCL 1 MG/ML INJ ONE (10:02)
--- NOTE | 2022-11-10 11:21 | ER ---
Nurse's Notes [facility] Name: Natanael Dyson Age: 27 yrs Sex: Female : 1995 Arrival Date: 11/10/2022 Time: 07:19 Bed 4 Private MD: Diagnosis: UTI/ Urinary tract infection, site not specified Presentation: 11/10 07:28 Chief complaint: Patient states: R flank pain that began 2 days ago. Pt reports that it ss feels similar to previous kidney stones she has had. Coronavirus screen: Client denies travel out of the [place] in the last 14 days. Ebola Screen: Patient denies exposure to infectious person. Patient denies travel to an Ebola-affected area in the 21 days before illness onset. Initial Sepsis Screen: Does the patient meet any 2 criteria? No. Patient's initial sepsis screen is negative. Does the patient have a suspected source of infection? No. Patient's initial sepsis screen is negative. Risk Assessment: Do you want to hurt yourself or someone else? Patient reports no desire to harm self or others. Onset of symptoms was November 09, 2022. 07:28 Method Of Arrival: Ambulatory ss 07:28 Acuity: THIERNO 3 ss Historical: - Allergies: 07:29 Compazine; ss 07:29 Ketorolac; ss 07:29 Reglan; ss - PMHx: 07:29 Asthma; Carcinoma of breast; Cerebrovascular accident; Kidney stone; Migraine; UTI; ss - PSHx: 07:29 section; tubal ligation; ss - Immunization history:: Adult Immunizations unknown. - Social history:: Smoking status: unknown. - Family history:: not pertinent. - Hospitalizations: : No recent hospitalization is reported. Screenin:58 [facility] ED Fall Risk Assessment (Adult) History of falling in the last 3 months, ph including since admission No falls in past 3 months (0 pts) Confusion or Disorientation No (0 pts) Intoxicated or Sedated No (0 pts) Impaired Gait No (0 pts) Mobility Assist Device Used No (0 pt) Altered Elimination No (0 pt) Score/Fall Risk Level 0 - 2 = Low Risk Oriented to surroundings, Maintained a safe environment, Hourly rounding (assess needs \T\ fall precautionary measures) done. Abuse screen: Denies threats or abuse. Denies injuries from another. Nutritional screening: No deficits noted. Tuberculosis screening: No symptoms or risk factors identified. Assessment: 07:56 General: Appears in no apparent distress. comfortable, Behavior is calm, cooperative, ph appropriate for age. Pain: Complains of pain in right low back Pain radiates to right lower quadrant. Neuro: Level of Consciousness is awake, alert, obeys commands, Oriented to person, place, time, situation. Neuro: Bradford Agitation-Sedation Scale (RASS): 0 - Alert and Calm. Cardiovascular: Capillary refill < 3 seconds in bilateral fingers Patient's skin is warm and dry. Respiratory: Airway is patent Respiratory effort is even, unlabored. GI: Abdomen is non-distended, Reports lower abdominal pain, nausea, vomiting. : Reports pain in right flank(s), lower quadrant(s) in lower back. Derm: Skin is pink, warm \T\ dry. 11:39 Reassessment: Patient appears in no apparent distress at this time. Patient and/or ph family updated on plan of care and expected duration. Pain level reassessed. Patient is alert, oriented x 3, equal unlabored respirations, skin warm/dry/pink. Pt c/o itching to arm, above IV site after receiving IVP phenergan, ERP notified, verbal order given to IVP Benadryl 25 mg. Vital Signs: 07:28 BP 142 / 94; Pulse 129; Resp 16; Temp 98.2(TE); Pulse Ox 100% on R/A; Weight 63.5 kg; ss Height 5 ft. 1 in. ; Pain 8/10; 08:15 BP 133 / 96; Pulse 108; Resp 18; Pulse Ox 100% on R/A; ph 09:30 BP 130 / 87; Pulse 97; Resp 18; Pulse Ox 98% on R/A; ph 10:30 BP 124 / 91; Pulse 98; Resp 16; Pulse Ox 100% on R/A; ph 11:40 BP 128 / 78; Pulse 104; Resp 18; Pulse Ox 98% on R/A; ph 12:04 BP 132 / 78; Pulse 94; Resp 18; Temp 98.2; Pulse Ox 99% ; ph 07:28 Body Mass Index 26.45 (63.50 kg, 154.94 cm) ss 07:28 Pain Scale: Adult ss ED Course: 07:21 Patient arrived in ED. ts1 07:21 Harjit Samson MD is Attending Physician. rn 07:29 Triage completed. ss 07:29 Pam Frausto, ROSEY is Primary Nurse. ko1 07:29 Arm band placed on right wrist. ss 07:53 Urine collected: clean catch specimen, cloudy. mm9 07:54 Patient has correct armband on for positive identification. Bed in low position. Call mm9 light in reach. Side rails up X 1. Warm blanket given. Pulse ox on. NIBP on. 07:57 Initial lab(s) drawn, by me, sent to lab. Inserted saline lock: 22 gauge in right ph antecubital area, using aseptic technique. Blood collected. 08:00 CT Stone Protocol In Process Unspecified. EDMS 11:25 No provider procedures requiring assistance completed. IV discontinued, intact, ph bleeding controlled, No redness/swelling at site. Pressure dressing applied. Administered Medications: 07:55 Drug: NS 0.9% IV 1000 ml Route: IV; Rate: 1000 ml; Site: right antecubital; ph 10:15 Follow up: Response: No adverse reaction; IV Status: Completed infusion; IV Intake: ko1 1000ml 07:56 Drug: Ondansetron IVP 4 mg Route: IVP; Site: right antecubital; ph 07:56 Drug: morphine IVP or IV 4 mg Route: IVP; Infused Over: 4 mins; Site: right antecubital;ph 08:21 Drug: morphine IVP or IV 4 mg Route: IVP; Infused Over: 4 mins; Site: right antecubital;ph 10:16 Follow up: Response: No adverse reaction; Pain is unchanged, physician notified ko1 08:55 Drug: Rocephin - Rocephin (cefTRIAXone) IVPB 1 grams Route: IVPB; Infused Over: 30 ko1 mins; Site: left antecubital; 10:15 Follow up: Response: No adverse reaction ko1 09:45 Drug: NS 0.9% IV 1000 ml Route: IV; Rate: 1000 ml; Site: right antecubital; ko1 09:56 Drug: HYDROmorphone IVP 1 mg Route: IVP; Site: right antecubital; ko1 10:16 Follow up: Response: No adverse reaction; Pain is decreased ko1 11:25 Drug: Promethazine IVP 12.5 mg Route: IVP; Site: right antecubital; ph 11:25 Follow up: Response: No adverse reaction ph 11:25 Drug: HYDROcodone-acetaminophen PO 10 mg-325 mg 1 tabs Route: PO; ph 11:25 Follow up: Response: No adverse reaction ph 11:39 Drug: diphenhydrAMINE IVP 25 mg Route: IVP; Site: right antecubital; ph 12:04 Follow up: Response: No adverse reaction ph Medication: 07:57 VIS not applicable for this client. ph Intake: 10:15 IV: 1000ml; Total: 1000ml. ko1 Outcome: 11:20 Discharge ordered by . rn 12:05 Discharged to home ambulatory. ph 12:05 Condition: good 12:05 Discharge instructions given to patient, Instructed on discharge instructions, follow up and referral plans. medication usage, Demonstrated understanding of instructions, follow-up care, medications, Prescriptions given X 3. 12:05 Patient left the ED. ph Signatures: Dispatcher [employer] EDMS Harjit Samson MD MD rn Blanchard, Shelby RN Viktoriya Leon RN RN ph Oliver, Kathy, RN RN ko1 Martinez, Maria mm9 Lianne Vicente, IKER PAS ts1 Corrections: (The following items were deleted from the chart) 11:14 10:47 LACTATE+C.LAB.BRZ drawn and sent. ko1 EDMS
--- NOTE | 2022-11-10 11:21 | EDPHYS ---
Physician Documentation [facility] Name: Natanael Dyson Age: 27 yrs Sex: Female : 1995 Arrival Date: 11/10/2022 Time: 07:19 Bed 4 Private MD: ED Physician Harjit Samson HPI: 11/10 08:33 This 27 yrs old Female presents to ER via Ambulatory with complaints of Possible Kidney rn Stone. 08:33 The patient presents with pain that is acute. The symptoms are located in the low back. rn Onset: The symptoms/episode began/occurred yesterday. The pain does not radiate. Associated signs and symptoms: Pertinent positives: nausea, vomiting, Pertinent negatives: abdominal pain, fever, incontinence, urinary retention. Modifying factors: The patient symptoms are alleviated by nothing, the patient symptoms are aggravated by any movement. Severity of symptoms: At their worst the symptoms were moderate, in the emergency department the symptoms are unchanged. The patient has not experienced similar symptoms in the past. The patient has not recently seen a physician. Pt reports back pain, no fever, + nausea/vomiting, states feels like either UTI or another kidney stone. NO trauma. No chest pain. No sob. . Historical: - Allergies: 07:29 Compazine; ss 07:29 Ketorolac; ss 07:29 Reglan; ss - PMHx: 07:29 Asthma; Carcinoma of breast; Cerebrovascular accident; Kidney stone; Migraine; UTI; ss - PSHx: 07:29 section; tubal ligation; ss - Immunization history:: Adult Immunizations unknown. - Social history:: Smoking status: unknown. - Family history:: not pertinent. - Hospitalizations: : No recent hospitalization is reported. ROS: 08:33 Constitutional: Negative for fever, chills, and weight loss, Cardiovascular: Negative rn for chest pain, palpitations, and edema, Respiratory: Negative for shortness of breath, cough, wheezing, and pleuritic chest pain, Abdomen/GI: Negative for abdominal pain, diarrhea, and constipation, Back: + back pain : Negative for injury, bleeding, discharge, and swelling, MS/Extremity: Negative for injury and deformity, Skin: Negative for injury, rash, and discoloration, Neuro: Negative for headache, weakness, numbness, tingling, and seizure. Exam: 08:33 Constitutional: This is a well developed, well nourished patient who is awake, alert, rn walking to room without difficulty, covered in a blanket Cardiovascular: tachycardic, regular Respiratory: No increased work of breathing, no retractions or nasal flaring. Abdomen/GI: soft, non-tender Back: No spinal tenderness. No costovertebral tenderness. Full range of motion. Skin: Warm, dry MS/ Extremity: Pulses equal, no cyanosis. Vital Signs: 07:28 BP 142 / 94; Pulse 129; Resp 16; Temp 98.2(TE); Pulse Ox 100% on R/A; Weight 63.5 kg; ss Height 5 ft. 1 in. ; Pain 8/10; 08:15 BP 133 / 96; Pulse 108; Resp 18; Pulse Ox 100% on R/A; ph 09:30 BP 130 / 87; Pulse 97; Resp 18; Pulse Ox 98% on R/A; ph 10:30 BP 124 / 91; Pulse 98; Resp 16; Pulse Ox 100% on R/A; ph 11:40 BP 128 / 78; Pulse 104; Resp 18; Pulse Ox 98% on R/A; ph 12:04 BP 132 / 78; Pulse 94; Resp 18; Temp 98.2; Pulse Ox 99% ; ph 07:28 Body Mass Index 26.45 (63.50 kg, 154.94 cm) ss 07:28 Pain Scale: Adult ss MDM: 07:21 Patient medically screened. rn 10:26 ED course: txpmp checked, no active narcotic pain med prescriptions, will dc home with rn 12 tramadol. . 11:19 Differential diagnosis: Ureterolithiasis UTI. Data reviewed: vital signs, nurses notes, varnish thinner test result(s), radiologic studies, CT scan, and as a result, I will discharge patient. Counseling: I had a detailed discussion with the patient and/or guardian regarding: the historical points, exam findings, and any diagnostic results supporting the discharge/admit diagnosis, lab results, radiology results, the need for outpatient follow up, to return to the emergency department if symptoms worsen or persist or if there are any questions or concerns that arise at home. Response to treatment: the patient's symptoms have markedly improved after treatment, and as a result, I will discharge patient. Special discussion: I discussed with the patient/guardian in detail that at this point there is no indication for admission to the hospital. It is understood, however, that if the symptoms persist or worsen the patient needs to return immediately for re-evaluation. ED course: Pt with improvement of lactate, now normal range, pain improved, no stone, will dc home with abx and pain meds with prn zofran. . 11/10 07:22 Order name: Test, Urine; Complete Time: 08:09 rn 11/10 07:22 Order name: Urinalysis w/ reflexes; Complete Time: 08:09 rn 11/10 07:32 Order name: CBC with Diff; Complete Time: 08:09 rn 11/10 07:32 Order name: CMP; Complete Time: 08:15 rn 11/10 07:32 Order name: Lipase; Complete Time: 08:15 rn 11/10 07:32 Order name: Lactate w/ 2H reflex if indic.; Complete Time: 08:15 rn 11/10 11:11 Order name: Lactate Sepsis 2 HR Follow-up; Complete Time: 11:22 EDMS 11/10 07:32 Order name: CT Stone Protocol; Complete Time: 08:29 rn 11/10 07:32 Order name: IV Saline Lock; Complete Time: 07:55 rn 11/10 07:32 Order name: Labs collected and sent; Complete Time: 07:55 rn Administered Medications: 07:55 Drug: NS 0.9% IV 1000 ml Route: IV; Rate: 1000 ml; Site: right antecubital; ph 10:15 Follow up: Response: No adverse reaction; IV Status: Completed infusion; IV Intake: ko1 1000ml 07:56 Drug: Ondansetron IVP 4 mg Route: IVP; Site: right antecubital; ph 07:56 Drug: morphine IVP or IV 4 mg Route: IVP; Infused Over: 4 mins; Site: right antecubital;ph 08:21 Drug: morphine IVP or IV 4 mg Route: IVP; Infused Over: 4 mins; Site: right antecubital;ph 10:16 Follow up: Response: No adverse reaction; Pain is unchanged, physician notified ko1 08:55 Drug: Rocephin - Rocephin (cefTRIAXone) IVPB 1 grams Route: IVPB; Infused Over: 30 ko1 mins; Site: left antecubital; 10:15 Follow up: Response: No adverse reaction ko1 09:45 Drug: NS 0.9% IV 1000 ml Route: IV; Rate: 1000 ml; Site: right antecubital; ko1 09:56 Drug: HYDROmorphone IVP 1 mg Route: IVP; Site: right antecubital; ko1 10:16 Follow up: Response: No adverse reaction; Pain is decreased ko1 11:25 Drug: Promethazine IVP 12.5 mg Route: IVP; Site: right antecubital; ph 11:25 Follow up: Response: No adverse reaction ph 11:25 Drug: HYDROcodone-acetaminophen PO 10 mg-325 mg 1 tabs Route: PO; ph 11:25 Follow up: Response: No adverse reaction ph 11:39 Drug: diphenhydrAMINE IVP 25 mg Route: IVP; Site: right antecubital; ph 12:04 Follow up: Response: No adverse reaction ph Disposition Summary: 11/10/22 11:20 Discharge Ordered Location: Home rn Problem: new rn Symptoms: have improved rn Condition: Stable rn Diagnosis - UTI/ Urinary tract infection, site not specified rn Followup: rn - With: Private Physician - When: As needed - Reason: Recheck today's complaints, Re-evaluation by your physician Discharge Instructions: - Discharge Summary Sheet rn - Urinary Tract Infection, Adult rn Forms: - Medication Reconciliation Form rn - Thank You Letter rn - Antibiotic glaz[employer] furniture - Prescription Opioid Use rn - [email or web address] rn Prescriptions: - ondansetron 4 mg Oral Tablet,disintegrating - take 1 tablet by ORAL route every 8 hours As needed; 12 tablet; Refills: 0, rn Product Selection Permitted - Cipro 500 mg Oral Tablet - take 1 tablet by ORAL route every 12 hours for 7 days; 14 tablet; Refills: 0, rn Product Selection Permitted - Tramadol 50 mg Oral Tablet - take 1 tablet by ORAL route every 8 hours as needed; 12 tablet; Refills: 0, rn Product Selection Permitted Signatures: Dispatcher [employer] EDMS Harjit Samson MD MD rn Blanchard, Shelby RN RN Viktoriya Carson RN RN ph Oliver, Kathy, RN RN ko1 Corrections: (The following items were deleted from the chart) 11:14 10:12 LACTATE+C.LAB.BRZ ordered. EDMS EDMS
[2022-11-10] MEDS ORDERED: PROMETHAZINE INJ 25 MG/ML AMP ONE (11:24)
[2022-11-10] MEDS ORDERED: HYDROCODONE/APAP 10/325 TAB ONE (11:24)
[2022-11-10] MEDS ORDERED: DIPHENHYDRAMINE 50 MG/ML VIAL ONE (11:44)
[2022-11-10 12:10] VITALS: TEMP 98.2
[2022-11-10 12:18] VITALS: BP 132/78; O2SAT 99
== END 2022-11-10 12:05 | disposition home or self-care (01) ==
LOC: ER 07:19
DX: N39.0 Urinary tract infection, site not specified (principal); Z88.1 Allergy status to other antibiotic agents; Z88.8 Allergy status to other drugs, medicaments and biological substances; Z87.442 Personal history of urinary calculi
CPT/HCPCS: 85025; 81001; 36415; 81025; 83605 ×2; 83690; 80053; 76377; 74176; 99285; J2550; J1200; J1170; J2405 ×2; J7030 ×2; J0696

== ENCOUNTER 2022-11-15 20:12 | Emergency (ER) | payer OTHER ==
--- OUTSIDE RECORDS SUMMARY | 2022-11-15 20:28 | XMS REPORT | Continuity of Care Document ---
:1995 Author Organization [facility] t Address [address] [place] [address] [address] [place] [address] Care Team Providers Name Role Phone JEREMY [...] Unavailable Kennedy Butler Attending Clinician Doctor Unassigned, [place] Attending Clinician Unavailable MANJU NEWELL Attending Clinician Unavailable Manju Giraldo Attending Clinician [...] Clinician ANGELICA VIVEROS Attending Clinician Unavailable Felice POKE IN, Angelica Attending Clinician DARRION WYATT Attending Clinician [...] Clinician Akinsipe WHCNP, Cricket Lopez Attending Clinician [phone] Noam CURRIE, Leslie Attending Clinician Unavailable [...] Clinician JAYY DIAZ Attending Clinician Unavailable CLAUDETTE VEANS Attending Clinician Unavailable Skylar Rico Attending Clinician [...] Clinician Unavailable Karin Alvarado Attending Clinician Dennis POKE IN, Alissa Attending Clinician Anna Kim MD Attending [...] Number Effective Date Expiration Date [facility] [id number] 2019 MEDICAID 00:00:00 Problems Condition Condition Condition Status Onset Resolution Last Treating Co mments Source Name Details Category Date Date Treatment Clinician Date Influenza Influenza Disease Active 2021-05 Uni vers vaccine vaccine 0-18 ity of needed needed 00:00: [address] Myalgia Myalgia Disease Active 2021-05 Univers 0-18 ity of 00:00: [address] Acute Acute Disease Active 2021-05 Univers cough cough 0-18 ity of 00:00: [address] Hx of Hx of Disease Active 2021-05 Univers extrinsic extrinsic 0-18 ity of asthma asthma 00:00: [place] [facility] Breast Breast Disease Active Univers pain in pain in 12-17 ity of female female 00:00: [place] [facility] Anxiety Anxiety Disease Active Univers disorder, disorder, 12-17 ity [place]spec[place] [facility] Generalize Generalize Disease Active U nivers d anxiety d anxiety 4-20 ity of disorder disorder 00:00: [place] [facility] Nephrolith Nephrolith Disease Active U nivers iasis iasis 4-20 ity of 00:00: [place] [facility] Paresthesi Paresthesi Disease Active U nivers [...] History SDOH University o f Alcohol Std [place] [facility] Dr[facility] History SDOH University o f Alcohol Binge [place] [facility] History SDOH University o f Alcohol Comment [place] [facility] Exposure to 2022-08-26 2022-09-05 Not sure [facility] SARS-CoV-2 00:00:00 09:28:00 [facility] (event) Branch Alcohol intake 2022-07-31 2022-07-31 Ex-drinker University of 00:00:00 00:00:00 (finding) [facility] Tobacco use and 2021-12-12 2021-12-12 Smokeless tobacco Un iversity of exposure 00:00:00 00:00:00 non-user [place] [facility] [place] History SDOH 2019-02-06 2019-02-06 1 University o f Alcohol Frequency 00:00:00 00:00:00 [facility] Sex Ass[birth year] At [birth year] Universit y of 00:00:00 00:00:00 [facility] Smoking Status Start Date Stop Date Source Never smoked tobacco [facility] Medications Ordered Filled Start Stop Current Ordering Indication Dosage Frequency Signature Comments Components Source Medication Medication Date Date Medication? Clinician (SIG) Name Name mirtazapine Yes 15mg Take 1 Univ ers 15 mg 5-12 tablet by ity of tablet 00:00: mouth at [place] 00 bedtime. Medical Branch mirtazapine Yes 15mg Take 1 Univ ers 15 mg 5-12 tablet by ity of tablet 00:00: mouth at [place] 00 bedtime. Medical Branch meloxicam 2023-0 Yes 15mg Take 1 Univer s 15 mg 5-09 tablet by ity of tablet 00:00: mouth in [place] 00 the Medical morning. Branch meloxicam 2023-0 Yes 15mg Take 1 Univer s 15 mg 5-09 tablet by ity of tablet 00:00: mouth in [place] 00 the Medical morning. Branch meloxicam 2023-0 Yes 15mg Take 1 Univer s 15 mg 5-09 tablet by ity of tablet 00:00: mouth in [place] 00 the Medical morning. Branch verapamil 2023-0 Yes 120mg Take 1 Unive rs SR 120 mg 5-08 tablet by ity o f ER tablet 00:00: mouth in [facility] 00 the Medical morning. Branch verapamil 2023-0 Yes 120mg Take 1 Unive rs SR 120 mg 5-08 tablet by ity o f ER tablet 00:00: mouth in [facility] 00 the Medical morning. Branch verapamil 2023-0 Yes 120mg Take 1 Unive rs SR 120 mg 5-08 tablet by ity o f ER tablet 00:00: mouth in [facility] 00 the Medical morning. Branch OLANZapine 2022-0 Yes 10mg Take 1 Unive rs 10 mg 4-27 tablet by ity of tablet 00:00: mouth in [place] 00 the Medical morning. Branch cloNIDine 2022-0 Yes TAKE 1-2 Univ ers 0.1 mg 4-27 TABLETS BY ity of tablet 00:00: MOUTH AT [place] [address] BEDTIME Medical NEEDED FOR Branch SLEEP AND ANXIETY OLANZapine 2022-0 Yes 10mg Take 1 Unive rs 10 mg 4-27 tablet by ity of tablet 00:00: mouth in [place] the Medical morning. Branch cloNIDine 2022-0 Yes TAKE 1-2 Univ ers 0.1 mg 4-27 TABLETS BY ity of tablet 00:00: MOUTH AT [place] [address] BEDTIME Medical NEEDED FOR Branch SLEEP AND ANXIETY OLANZapine 3-0 Yes 10mg Take 1 Unive rs 10 mg 4-27 tablet by ity of tablet 00:00: mouth in [place] 00 the Medical morning. Branch cloNIDine 2022-0 Yes TAKE 1-2 Univ ers 0.1 mg 4-27 TABLETS BY ity of tablet 00:00: MOUTH AT [place] [address] BEDTIME Medical NEEDED FOR Branch SLEEP AND [...] of succ 14:45: 14:35 s, ONCE, 1 [place] (SOLU-MEDRO 00 :00 dose, On Medi yessi L) Wed Branch injection 09/05/22 at 125 mg 0945, 2 mL butalbital- 2022- No 1{tbl} 1 tablet, Univers acetaminoph 09-05 Oral, ity of en-caff 14:00: 14:34 ONCE, 1 [place] (ESGIC) 00 :00 dose, On Medical 50-325-40 [...] IV ity of (PHENERGAN) 14:00: 14:40 Piggy[place], [place] 12.5 mg in 00 :00 ONCE, 1 Medica l NaCl 0.9% dose, On Branch (NS) 50 mL [facility] IV 09/05/22 at piggyback 0900, [place] carvediloL 2022-0 Yes [id number] 25mg Take 1 U nivers 25 mg 4-26 tablet by ity of tablet 00:00: mouth in [place] [address] the morning [place] and 1 tablet in the evening. Take with meals. losartan 50 2022-0 Yes [id number] 50mg Take 1 Univers mg tablet 4-26 tablet by ity o f 00:00: mouth in [place] [address] the morning [place] and 1 tablet in the evening. carvediloL 2022-0 Yes [id number] 25mg Take 1 U nivers 25 mg 4-26 tablet by ity of tablet 00:00: mouth in [address] morning [place] and 1 tablet in the evening. Take with meals. losartan 50 2023-0 Yes [id number] 50mg Take 1 Univers mg tablet 4-26 tablet by ity o f 00:00: mouth in [place] [address] the Medical morning Branch and 1 tablet in the evening. carvediloL 2023-0 Yes [id number] 25mg Take 1 U nivers 25 mg 4-26 tablet by ity of tablet 00:00: mouth in [place] [address] the Medical morning Branch and 1 tablet in the evening. Take with meals. losartan 50 3-0 Yes [id number] 50mg Take 1 Univers mg tablet 4-26 tablet by ity o f 00:00: mouth in [place] [address] the Medical morning Branch and 1 tablet in the evening. carvediloL 2023-0 Yes [id number] 25mg Take 1 U nivers 25 mg 4-26 tablet by ity of tablet 00:00: mouth in [place] [address] the Medical morning [place] and 1 tablet in the evening. Take with meals. losartan 50 3-0 Yes [id number] 50mg Take 1 Univers mg tablet 4-26 tablet by ity o f 00:00: mouth in [place] [address] the Medical morning Branch and 1 tablet in the evening. carvediloL 2023-0 Yes [id number] 25mg Take 1 U nivers 25 mg 4-26 tablet by ity of tablet 00:00: mouth in [place] [address] [facility] morning [place] and 1 tablet in the evening. Take with meals. losartan 50 3-0 Yes [id number] 50mg Take 1 Univers mg tablet 4-26 tablet by ity o f 00:00: mouth in [place] [address] the Medical morning [place] and 1 tablet in the evening. carvediloL 2023-0 Yes [id number] 25mg Take 1 U nivers 25 mg 4-26 tablet by ity of tablet 00:00: mouth in [place] [address] the [facility] morning [place] and 1 tablet in the evening. Take with meals. losartan 50 3-0 Yes [id number] 50mg Take 1 Univers mg tablet 4-26 tablet by ity o f 00:00: mouth in [place] [address] the [facility] morning [place] and 1 tablet in the evening. carvediloL 2023-0 Yes [id number] 25mg Take 1 U nivers 25 mg 4-26 tablet by ity of tablet 00:00: mouth in [address] morning [place] and 1 tablet in the evening. Take with meals. losartan 50 3-0 Yes [id number] 50mg Take 1 Univers mg tablet 4-26 tablet by ity o f 00:00: mouth in the Medical morning Branch and 1 tablet in the evening. carvediloL 2023-0 Yes [id number] 25mg Take 1 U nivers 25 mg 4-26 tablet by ity of tablet 00:00: mouth in 00 the Medical morning Branch and 1 tablet in the evening. Take with meals. losartan 50 2023-0 Yes [id number] 50mg Take 1 Univers mg tablet 4-26 [...] 00 :00 dose, On Medi yessi 1:1:1 [facility] Branch ([facility] 07/31/22 at [facility]) 1944, [place] oral suspension 15 mL ketorolac 2022-0 2022- No 15mg 15 mg, Unive rs (TORADOL) 08-01 Slow IV ity of injection 00:15: 00:44 Push, [place] 15 mg 00 :00 ONCE, 1 Medical dose, On Branch [facility] 07/31/22 at 1914, Routine ondansetron 2022-0 2022- No 4mg 4 mg, Slow Univers (ZOFRAN 08-01 IV Push, ity of (PF)) 00:15: 00:46 ONCE, 1 [place] injection 4 00 :00 dose, On [facility] mg [facility] Branch 07/31/22 at 1914, [place] famotidine 2022-0 2022- No 20mg 20 mg, Univ ers (PEPCID 08-01 Slow IV ity of (PF)) 00:15: 00:46 Push, [place] injection 00 :00 ONCE, 1 Medical 20 mg dose, On Branch [facility] 07/31/22 at 1914, [place] ondansetron 2022-0 Yes [id number] 4mg Take 1 Univers 4 mg 3-21 tablet by ity of disintegrat 00:00: mouth [place] ing tablet 00 every 8 Medica l (eight) Branch hours as needed for Nausea and Vomiting (N/V). sucralfate 3-0 Yes [id number] 1g Take 1 U nivers 1 gram 3-21 tablet by ity of tablet 00:00: mouth [place] 00 before Medical meals and Branch at bedtime. ondansetron 2023-0 Yes [id number] 4mg Take 1 Univers 4 mg 3-21 tablet by ity of disintegrat 00:00: mouth [place] ing tablet 00 every 8 Medica l (eight) Branch hours as needed for Nausea and Vomiting (N/V). sucralfate 2023-0 Yes [id number] 1g Take 1 U nivers 1 gram 3-21 tablet by ity of tablet 00:00: mouth [place] 00 before Medical meals and Branch at bedtime. ondansetron 2023-0 Yes [id number] 4mg Take 1 Univers 4 mg 3-21 tablet by ity of disintegrat 00:00: mouth [place] ing tablet 00 every 8 Medica l (eight) Branch hours as needed for Nausea and Vomiting (N/V). sucralfate 2023-0 Yes [id number] 1g Take 1 U nivers 1 gram 3-21 tablet by ity of tablet 00:00: mouth [place] 00 before Medical meals and Branch at bedtime. ondansetron 2023-0 Yes [id number] 4mg Take 1 Univers 4 mg 3-21 tablet by ity of disintegrat 00:00: mouth [place] ing tablet 00 every 8 Medica l (eight) Branch hours as needed for Nausea and Vomiting (N/V). sucralfate 2023-0 Yes [id number] 1g Take 1 U nivers 1 gram 3-21 tablet by ity of tablet 00:00: mouth [place] 00 before Medical meals and Branch at bedtime. ondansetron 2023-0 Yes [id number] 4mg Take 1 Univers 4 mg 3-21 tablet by ity of disintegrat 00:00: mouth [place] ing tablet 00 every 8 Medica l (eight) Branch hours as needed for Nausea and Vomiting (N/V). sucralfate 2023-0 Yes [id number] 1g Take 1 U nivers 1 gram 3-21 tablet by ity of tablet 00:00: mouth [place] 00 before Medical meals and Branch at bedtime. ondansetron 2023-0 Yes [id number] 4mg Take 1 Univers 4 mg 3-21 tablet by ity of disintegrat 00:00: mouth [place] ing tablet 00 every 8 Medica l (eight) Branch hours as needed for Nausea and Vomiting (N/V). sucralfate 2023-0 Yes [id number] 1g Take 1 U nivers 1 gram 3-21 tablet by ity of tablet 00:00: mouth [place] 00 before Medical meals and Branch at bedtime. ondansetron 2023-0 Yes [id number] 4mg Take 1 Univers 4 mg 3-21 tablet by ity of disintegrat 00:00: mouth [place] ing tablet 00 every 8 Medica l (eight) Branch hours as needed for Nausea and Vomiting (N/V). sucralfate 2023-0 Yes [id number] 1g Take 1 U nivers 1 gram 3-21 tablet by ity of tablet 00:00: mouth [place] 00 before Medical meals and Branch at bedtime. ondansetron 2023-0 Yes [id number] 4mg Take 1 Univers 4 mg 3-21 tablet by ity of disintegrat 00:00: mouth [place] ing tablet 00 every 8 Medica l (eight) Branch hours as needed for Nausea and Vomiting (N/V). sucralfate 2023-0 Yes [id number] 1g Take 1 U nivers 1 gram 3-21 tablet by ity of tablet 00:00: mouth [place] 00 before Medical meals and Branch at bedtime. ondansetron 2023-0 Yes [id number] 4mg Take 1 Univers 4 mg 3-21 tablet by ity of disintegrat 00:00: mouth [place] ing tablet 00 every 8 Medica l (eight) Branch hours as needed for Nausea and Vomiting (N/V). sucralfate 2023-0 Yes [id number] 1g Take 1 U nivers 1 gram 3-21 tablet by ity of tablet 00:00: mouth [place] 00 before Medical meals and Branch at bedtime. ondansetron 2023-0 Yes [id number] 4mg Take 1 Univers 4 mg 3-21 tablet by ity of disintegrat 00:00: mouth [place] ing tablet 00 every 8 Medica l (eight) Branch hours as needed for Nausea and Vomiting (N/V). sucralfate 2023-0 Yes [id number] 1g Take 1 U nivers 1 gram 3-21 tablet by ity of tablet 00:00: mouth [place] 00 before Medical meals and Branch at bedtime. ondansetron 2023-0 Yes [id number] 4mg Take 1 Univers 4 mg 3-21 tablet by ity of disintegrat 00:00: mouth [place] ing tablet 00 every 8 Medica l (eight) Branch hours as needed for Nausea and Vomiting (N/V). sucralfate 2023-0 Yes [id number] 1g Take 1 U nivers 1 gram 3-21 tablet by ity of tablet 00:00: mouth [place] 00 before Medical meals and Branch at bedtime. ondansetron 2023-0 Yes [id number] 4mg Take 1 Univers 4 mg 3-21 tablet by ity of disintegrat 00:00: mouth [place] ing tablet 00 every 8 Medica l (eight) Branch hours as needed for Nausea and Vomiting (N/V). sucralfate 2023-0 Yes [id number] 1g Take 1 U nivers 1 gram 3-21 tablet by ity of tablet 00:00: mouth [place] 00 before Medical meals and Branch at bedtime. ondansetron 2023-0 Yes [id number] 4mg Take 1 Univers 4 mg 3-21 tablet by ity of disintegrat 00:00: mouth [place] ing tablet 00 every 8 Medica l (eight) Branch hours as needed for Nausea and Vomiting (N/V). sucralfate 2023-0 Yes [id number] 1g Take 1 U nivers 1 gram 3-21 tablet by ity of tablet 00:00: mouth [place] 00 before Medical meals and Branch at bedtime. pantoprazol 2023-0 2023- No [id number] 40mg Take 1 Univers e 40 mg EC 3-21 04-05 tablet by ity of tablet 00:00: 04:59 mouth in [place] 00 :00 the Medical morning Branch for 14 days. pantoprazol 2023-0 3- No [id number] 40mg Take 1 Univers e 40 mg [...] tablet by ity o f 00:00: mouth. [place] [facility] traMADoL 50 2023-0 Yes 50mg Take 1 Univ ers mg tablet 3-13 tablet by ity o f 00:00: mouth. [place] [facility] traMADoL 50 2023-0 Yes 50mg [...] tablet by ity o f 00:00: mouth. [place] [facility] traMADoL 50 3-0 Yes 50mg [...] tablet by ity o f 00:00: mouth. [place] [facility] ibuprofen 2023-0 Yes [id number] 600mg Take 1 Univers 600 mg 3-05 [id number] tablet by ity of tablet 00:00: mouth [place] [address] every 6 Medical (six) Branch hours as needed for Pain (scale 4-6). ibuprofen 2023-0 Yes [id number] 600mg Take 1 Univers 600 mg 3-05 [id number] tablet by ity of tablet 00:00: mouth [place] [address] every 6 Medical (six) Branch hours as needed for Pain (scale 4-6). ibuprofen 2023-0 Yes [id number] 600mg Take 1 Univers 600 mg 3-05 [id number] tablet by ity of tablet 00:00: mouth [place] [address] every 6 Medical (six) Branch hours as needed for Pain (scale 4-6). ibuprofen 2023-0 2023- No [id number] 600mg Take 1 Univers 600 mg 3-05 03-21 [id number] tablet by ity o f tablet 00:00: 00:00 mouth [place] 00 :00 every 6 Medical (six) Branch hours as needed for Pain (scale 4-6). citalopram 2023-0 Yes 10mg Take 1 Unive rs 10 mg 2-17 tablet by ity of tablet 00:00: mouth in [place] the Medical morning. Branch QUEtiapine 2023-0 Yes Univers 400 mg 2-17 ity of tablet 00:00: [place] 00 Medical Branch gabapentin 2023-0 Yes Univers 600 mg 2-17 ity of tablet 00:00: [place] 00 Medical Branch citalopram 2023-0 Yes 10mg Take 1 Unive rs 10 mg 2-17 tablet by ity of tablet 00:00: mouth in [place] the Medical morning. Branch QUEtiapine 2023-0 Yes Univers 400 mg 2-17 ity of tablet 00:00: [place] 00 Medical Branch gabapentin 2023-0 Yes Univers 600 mg 2-17 ity of tablet 00:00: [place] 00 Medical Branch citalopram 2023-0 Yes 10mg Take 1 Unive rs 10 mg 2-17 tablet by ity of tablet 00:00: mouth in [place] the Medical morning. Branch QUEtiapine 2023-0 Yes Univers 400 mg 2-17 ity of tablet 00:00: [place] 00 Medical Branch gabapentin 2023-0 Yes Univers 600 mg 2-17 ity of tablet 00:00: [place] 00 Medical Branch citalopram 2023-0 Yes 10mg Take 1 Unive rs 10 mg 2-17 tablet by ity of tablet 00:00: mouth in [place] the Medical morning. Branch QUEtiapine 2023-0 Yes Univers 400 mg 2-17 ity of tablet 00:00: [place] 00 Medical Branch gabapentin 2023-0 Yes Univers 600 mg 2-17 ity of tablet 00:00: [place] 00 Medical Branch citalopram 2023-0 Yes 10mg Take 1 Unive rs 10 mg 2-17 tablet by ity of tablet 00:00: mouth in [place] the Medical morning. Branch QUEtiapine 2023-0 Yes Univers 400 mg 2-17 ity of tablet 00:00: [place] 00 Medical Branch gabapentin 2023-0 Yes Univers 600 mg 2-17 ity of tablet 00:00: [place] 00 Medical Branch citalopram 2023-0 Yes 10mg Take 1 Unive rs 10 mg 2-17 tablet by ity of tablet 00:00: mouth in [place] the Medical morning. Branch QUEtiapine 2023-0 Yes Univers 400 mg 2-17 ity of tablet 00:00: [place] 00 Medical Branch gabapentin 2023-0 Yes Univers 600 mg 2-17 ity of tablet 00:00: [place] 00 Medical Branch citalopram 2023-0 Yes 10mg Take 1 Unive rs 10 mg 2-17 tablet by ity of tablet 00:00: mouth in [place] the Medical morning. Branch QUEtiapine 2023-0 Yes Univers 400 mg 2-17 ity of tablet 00:00: [place] 00 Medical Branch gabapentin 2023-0 Yes Univers 600 mg 2-17 ity of tablet 00:00: [place] 00 Medical Branch citalopram 2023-0 Yes 10mg Take 1 Unive rs 10 mg 2-17 tablet by ity of tablet 00:00: mouth in [place] the Medical morning. Branch QUEtiapine 2023-0 Yes Univers 400 mg 2-17 ity of tablet 00:00: [place] 00 Medical Branch gabapentin 2023-0 Yes Univers 600 mg 2-17 ity of tablet 00:00: [place] 00 Medical Branch citalopram 2023-0 Yes 10mg Take 1 Unive rs 10 mg 2-17 tablet by ity of tablet 00:00: mouth in [place] the Medical morning. Branch QUEtiapine 2023-0 Yes Univers 400 mg 2-17 ity of tablet 00:00: [place] 00 Medical Branch gabapentin 2023-0 Yes Univers 600 mg 2-17 ity of tablet 00:00: [place] 00 Medical Branch citalopram 2023-0 Yes 10mg Take 1 Unive rs 10 mg 2-17 tablet by ity of tablet 00:00: mouth in [place] the Medical morning. Branch QUEtiapine 2023-0 Yes Univers 400 mg 2-17 ity of tablet 00:00: [place] 00 Medical Branch gabapentin 2023-0 Yes Univers 600 mg 2-17 ity of tablet 00:00: [place] 00 Medical Branch citalopram 2023-0 Yes 10mg Take 1 Unive rs 10 mg 2-17 tablet by ity of tablet 00:00: mouth in [place] the Medical morning. Branch QUEtiapine 2023-0 Yes Univers 400 mg 2-17 ity of tablet 00:00: [place] 00 Medical Branch gabapentin 2023-0 Yes Univers 600 mg 2-17 ity of tablet 00:00: [place] 00 Medical Branch methylPREDN 2023-0 Yes [id number] Take by Univers ISolone 2-11 mouth ity of (MEDROL, 00:00: SEE-INSTRU [place] ANABELA,) 4 mg 00 CTIONS. Medica l tablets follow Branch package directions methylPREDN 2023-0 Yes [id number] Take by Univers ISolone 2-11 mouth ity of (MEDROL, 00:00: SEE-INSTRU [place],) 4 mg 00 CTIONS. Medica l tablets follow Branch package directions methylPREDN 2023-0 Yes [id number] Take by Univers ISolone 2-11 mouth ity of (MEDROL, 00:00: SEE-INSTRU [place],) 4 mg 00 CTIONS. Medica l tablets follow Branch package directions methylPREDN 2023-0 Yes [id number] Take by Univers ISolone 2-11 mouth ity of (MEDROL, 00:00: SEE-INSTRU [place],) 4 mg 00 CTIONS. Medica l tablets follow Branch package directions methylPREDN 2023-0 Yes [id number] Take by Univers ISolone 2-11 mouth ity of (MEDROL, 00:00: SEE-INSTRU [place],) 4 mg 00 CTIONS. Medica l tablets follow Branch package directions methylPREDN 2023-0 Yes [id number] Take by Univers ISolone 2-11 mouth ity of (MEDROL, 00:00: SEE-INSTRU [place],) 4 mg 00 CTIONS. Medica l tablets follow Branch package directions methylPREDN 2023-0 Yes [id number] Take by Univers ISolone 2-11 mouth ity of (MEDROL, 00:00: SEE-INSTRU [place],) 4 mg 00 CTIONS. Medica l tablets follow Branch package directions methylPREDN 2023-0 Yes [id number] Take by Univers ISolone 2-11 mouth ity of (MEDROL, 00:00: SEE-INSTRU [place],) 4 mg 00 CTIONS. Medica l tablets follow Branch package directions methylPREDN 2023-0 Yes [id number] Take by Univers ISolone 2-11 mouth ity of (MEDROL, 00:00: SEE-INSTRU [place],) 4 mg 00 CTIONS. Medica l tablets follow Branch package directions methylPREDN 2023-0 Yes [id number] Take by Univers ISolone 2-11 mouth ity of (MEDROL, 00:00: SEE-INSTRU [place],) 4 mg 00 CTIONS. Medica l tablets follow Branch package directions methylPREDN 3-0 Yes [id number] Take by Univers ISolone 06-23 mouth ity of (MEDROL, 00:00: SEE-INSTRU [place],) 4 mg 00 CTIONS. Medica l tablets follow Branch package directions methylPREDN 3-0 Yes [id number] Take by Univers ISolone 06-23 mouth ity of (MEDROL, 00:00: SEE-INSTRU [place],) 4 mg 00 CTIONS. Medica l tablets follow Branch package directions methylPREDN 3-0 Yes [id number] Take by Univers ISolone 11 mouth ity of (MEDROL, 00:00: SEE-INSTRU [place],) 4 mg 00 CTIONS. Medica l tablets follow Branch package directions methylPREDN 3-0 Yes [id number] Take by Univers ISolone 06-23 mouth ity of (MEDROL, 00:00: SEE-INSTRU [place],) 4 mg 00 CTIONS. Medica l tablets follow Branch package directions bromphenira 2022- No [id number] 5mL Take 5 mL Univers mine-pseudo 06-23 by mouth 4 i ty of ephedrine-D 00:00: 05:59 (four) [place] M (BROMFED 00 :00 times Medical DM) 2-30-10 daily as Bran ch mg/5 mL needed for syrup Cold symptoms for up to 10 days. methocarbam 2022- No [id number] 750mg Take 1 Univers oL 750 mg 06-23 [id number] tablet by it y of tablet 00:00: [...] IV ity of PF 20:15: 21:00 [place], [place] injection 00 :00 ONCE, 1 Medical 10 [...] IV ity of (BENADRYL) 19:15: 19:42 [place], [place] injection 00 :00 ONCE, 1 Medical 25 [...] 05/05/22 at 1315, Routine butalbital- 2021-05 Yes [id number] 1{tbl} Take 1 Univers acetaminoph 2-24 tablet by ity of en-caff 00:00: mouth [place] 50-325-40 00 every 4 Medical mg tablet (four) Branch hours as needed for Pain (scale 7-10). butalbital- 2021-05 Yes [id number] 1{tbl} Take 1 Univers acetaminoph 2-24 tablet by ity of en-caff 00:00: mouth [place] 50-325-40 00 every 4 Medical mg tablet (four) Branch hours as needed for Pain (scale 7-10). butalbital- 2021-05 Yes [id number] 1{tbl} Take 1 Univers acetaminoph 2-24 tablet by ity of en-caff 00:00: mouth [place] 50-325-40 00 every 4 Medical mg tablet (four) Branch hours as needed for Pain (scale 7-10). butalbital- 2021-05 Yes [id number] 1{tbl} Take 1 Univers acetaminoph 2-24 tablet by ity of en-caff 00:00: mouth [place] 50-325-40 00 every 4 Medical mg tablet (four) Branch hours as needed for Pain (scale 7-10). butalbital- 2021-05 Yes [id number] 1{tbl} Take 1 Univers acetaminoph 2-24 tablet by ity of en-caff 00:00: mouth [place] 50-325-40 00 every 4 Medical mg tablet (four) Branch hours as needed for Pain (scale 7-10). butalbital- 2021-05 Yes [id number] 1{tbl} Take 1 Univers acetaminoph 2-24 tablet by ity of en-caff 00:00: mouth [place] 50-325-40 00 every 4 Medical mg tablet (four) Branch hours as needed for Pain (scale 7-10). butalbital2021-05 Yes [id number] 1{tbl} Take 1 Univers acetaminoph 2-24 tablet by ity of en-caff 00:00: mouth [place] 50-325-40 00 every 4 Medical mg tablet (four) Branch hours as needed for Pain (scale 7-10). butalbital- 2021-05 Yes [id number] 1{tbl} Take 1 Univers acetaminoph 2-24 tablet by ity of en-caff 00:00: mouth [place] 50-325-40 00 every 4 Medical mg tablet (four) Branch hours as needed for Pain (scale 7-10). butalbital- 2021-05 Yes [id number] 1{tbl} Take 1 Univers acetaminoph 2-24 tablet by ity of en-caff 00:00: mouth [place] 50-325-40 00 every 4 Medical mg tablet (four) Branch hours as needed for Pain (scale 7-10). butalbital2021-05 Yes [id number] 1{tbl} Take 1 [facility] acetaminoph 2-24 tablet by ity of en-caff 00:00: mouth [place] 50-325-40 00 every 4 Medical mg tablet (four) Branch hours as needed for Pain (scale 7-10). butalbital2021-05 Yes [id number] 1{tbl} Take 1 [facility] acetaminoph 2-24 tablet by ity of en-caff 00:00: mouth [place] 50-325-40 00 every 4 Medical mg tablet (four) Branch hours as needed for Pain (scale 7-10). butalbital2021-05 Yes [id number] 1{tbl} Take 1 [facility] acetaminoph 2-24 tablet by ity of en-caff 00:00: mouth [place] 50-325-40 00 every 4 Medical mg tablet (four) Branch hours as needed for Pain (scale 7-10). butalbital2021-05 Yes [id number] 1{tbl} Take 1 [facility] acetaminoph 2-24 tablet by ity of en-caff 00:00: mouth [place] 50-325-40 00 every 4 Medical mg tablet (four) Branch hours as needed for Pain (scale 7-10). butalbital2021-05 Yes [id number] 1{tbl} Take 1 [facility] acetaminoph 2-24 tablet by ity of en-caff 00:00: mouth [place] 50-325-40 00 every 4 Medical mg tablet (four) Branch hours as needed for Pain (scale 7-10). butalbital2021-05 Yes [id number] 1{tbl} Take 1 [facility] acetaminoph 2-24 tablet by ity of en-caff 00:00: mouth [place] 50-325-40 00 every 4 Medical mg tablet (four) Branch hours as needed for Pain (scale 7-10). butalbital2021-05 Yes [id number] 1{tbl} Take 1 [facility] acetaminoph 2-24 tablet [...] 00 :00 dose, On Medica l mg [facility] 04/26/22 at 0945, [place] NaCl [...] 00 :00 dose, On Medi yessi mg [facility] 04/26/22 at 0845, Routine cephALEXin 2021-05- No [id number] 500mg Take 1 [facility] (KEFLEX) 2-15 12-23 capsule by ity of 500 mg 00:00: 05:59 mouth in [place] capsule 00 :00 the Medical morning Branch [...] Nausea and Vomiting (N/V). galcanezuma 2021-05 Yes [id number] 120mg inject 120 [facility] b-gnlm 1-28 mg under ity of prefilled 00:00: [place] (EMGALITY) 00 once every Med ical subcutaneou month. Branch s injection galcanezuma 2021-05 Yes [id number] 120mg inject 120 [facility] b-gnlm 1-28 mg under ity of prefilled 00:00: [place] (EMGALITY) 00 once every Med ical subcutaneou month. Branch s injection galcanezuma 2021-05 Yes [id number] 120mg inject 120 [facility] b-gnlm 1-28 mg under ity of prefilled 00:00: [place] (EMGALITY) 00 once every Med ical subcutaneou month. Branch s injection galcanezuma 2021-05 Yes [id number] 120mg inject 120 [facility] b-gnlm 1-28 mg under ity of prefilled 00:00: the [place] (EMGALITY) 00 once every Med ical subcutaneou month. Branch s injection galcanezuma 2021-05 Yes [id number] 120mg inject 120 [facility] b-gnlm 1-28 mg under ity of prefilled 00:00: [place] (EMGALITY) 00 once every Med ical subcutaneou month. Branch s injection galcanezuma 2021-05 Yes [id number] 120mg inject 120 [facility] b-gnlm 1-28 mg under ity of prefilled 00:00: the [place] (EMGALITY) 00 once every Med ical subcutaneou month. Branch s injection galcanezuma 2021-05 Yes [id number] 120mg inject 120 [facility] b-gnlm 1-28 mg under ity of prefilled 00:00: the [place] (EMGALITY) 00 once every Med ical subcutaneou month. Branch s injection galcanezuma 2021-05 Yes [id number] 120mg inject 120 [facility] b-gnlm 1-28 mg under ity of prefilled 00:00: the [place] (EMGALITY) 00 once every Med ical subcutaneou month. Branch s injection galcanezuma 2021-05 Yes [id number] 120mg inject 120 [facility] b-gnlm 1-28 mg under ity of prefilled 00:00: the [place] (EMGALITY) 00 once every Med ical subcutaneou month. Branch s injection galcanezuma 2021-05 Yes [id number] 120mg inject 120 [facility] b-gnlm 1-28 mg under ity of prefilled 00:00: the [place] (EMGALITY) 00 once every Med ical subcutaneou month. Branch s injection galcanezuma 2021-05 Yes [id number] 120mg inject 120 [facility] b-gnlm 1-28 mg under ity of prefilled 00:00: the [place] (EMGALITY) 00 once every Med ical subcutaneou month. Branch s injection galcanezuma 2021-05 Yes [id number] 120mg inject 120 [facility] b-gnlm 1-28 mg under ity of prefilled 00:00: the [place] (EMGALITY) 00 once every Med ical subcutaneou month. Branch s injection galcanezuma 2021-05 Yes [id number] 120mg inject 120 [facility] b-gnlm 1-28 mg under ity of prefilled 00:00: the [place] (EMGALITY) 00 once every Med ical subcutaneou month. Branch s injection galcanezuma 2021-05 Yes [id number] 120mg inject 120 [facility] b-gnlm 1-28 mg under ity of prefilled 00:00: the [place] (EMGALITY) 00 once every Med ical subcutaneou month. Branch s injection galcanezuma 2021-05 Yes [id number] 120mg inject 120 [facility] b-gnlm 1-28 mg under ity of prefilled 00:00: the [place] (EMGALITY) 00 once every Med ical subcutaneou month. Branch s injection galcanezuma 2021-05 Yes [id number] 120mg inject 120 [facility] b-gnlm 1-28 mg under ity of prefilled 00:00: the [place] (EMGALITY) 00 once every Med ical subcutaneou month. Branch s injection galcanezuma 2021-05 Yes [id number] 120mg inject 120 [facility] b-gnlm 1-28 mg under ity of prefilled 00:00: the [place] (EMGALITY) 00 once every Med ical subcutaneou month. Branch s injection galcanezuma 2021-05 Yes [id number] 120mg inject 120 [facility] b-gnlm 1-28 mg under ity of prefilled 00:00: the [place] (EMGALITY) 00 once every Med ical subcutaneou month. Branch s injection galcanezuma 2021-05 Yes [id number] 120mg inject 120 [facility] b-gnlm 1-28 mg under ity of prefilled 00:00: the [place] (EMGALITY) 00 once every Med ical subcutaneou month. Branch s injection galcanezuma 2021-05 Yes [id number] 120mg inject 120 [facility] b-gnlm 1-28 mg under ity of prefilled 00:00: the [place] (EMGALITY) 00 once every Med ical subcutaneou month. Branch s injection galcanezuma 2021-05 Yes [id number] 120mg inject 120 [facility] b-gnlm 1-28 mg under ity of prefilled 00:00: the [place] (EMGALITY) 00 once every Med ical subcutaneou month. Branch s injection galcanezuma 2021-05 Yes [id number] 120mg inject 120 [facility] b-gnlm 1-28 mg under ity of prefilled 00:00: the [place] (EMGALITY) 00 once every Med ical subcutaneou month. Branch s injection galcanezuma 2021-05 Yes [id number] 120mg inject 120 [facility] b-gnlm 1-28 mg under ity of prefilled 00:00: the [place] (EMGALITY) 00 once every Med ical subcutaneou month. Branch s injection galcanezuma 2021-05 Yes [id number] 120mg inject 120 [facility] b-gnlm 1-28 mg under ity of prefilled 00:00: the [place] (EMGALITY) 00 once every Med ical subcutaneou month. Branch s injection galcanezuma 2021-05 Yes [id number] 120mg inject 120 [facility] b-gnlm 1-28 mg under ity of prefilled 00:00: the [place] (EMGALITY) 00 once every Med ical subcutaneou month. Branch s injection galcanezuma 2021-05 Yes [id number] 120mg inject 120 [facility] b-gnlm 1-28 mg under ity of prefilled 00:00: the [place] (EMGALITY) 00 once every Med ical subcutaneou month. Branch s injection galcanezuma 2021-05 Yes [id number] 120mg inject 120 [facility] b-gnlm 1-28 mg under ity of prefilled 00:00: the [place] (EMGALITY) 00 once every Med ical subcutaneou month. Branch s injection galcanezuma 2021-05 Yes [id number] 120mg inject 120 [facility] b-gnlm 1-28 mg under ity of prefilled 00:00: the [place] (EMGALITY) 00 once every Med ical subcutaneou month. Branch s injection galcanezuma 2021-05 Yes [id number] 120mg inject 120 [facility] b-gnlm 1-28 mg [...] 13 :00 Medical Branch rizatriptan 2021-05 Yes [id number] 10mg Take 1 [facility] 10 mg 1-12 tablet by ity of tablet 00:00: mouth as [place] 00 needed for Medical Migraine. Branch May repeat in 2 hours if needed Butalbital- 2021-05 Yes [id number] 1{capsu Take 1 [facility] Acetaminoph 1-12 le} [...] daily. Indication s: headache rizatriptan 2021-05 Yes [id number] 10mg Take 1 [facility] 10 mg 1-12 tablet by ity of tablet 00:00: mouth as [place] 00 needed for Medical Migraine. Branch May repeat in 2 hours if needed Butalbital- 2021-05 Yes [id number] 1{capsu Take 1 [facility] Acetaminoph 1-12 le} [...] daily. Indication s: headache rizatriptan 2021-05 Yes [id number] 10mg Take 1 [facility] 10 mg 1-12 tablet by ity of tablet 00:00: mouth as [place] 00 needed for Medical Migraine. Branch May repeat in 2 hours if needed Butalbital- 2021-05 Yes [id number] 1{capsu Take 1 [facility] Acetaminoph 1-12 le} [...] daily. Indication s: headache rizatriptan 2021-05 Yes [id number] 10mg Take 1 [facility] 10 mg 1-12 tablet by ity of tablet 00:00: mouth as [place] 00 needed for Medical Migraine. Branch May repeat in 2 hours if needed Butalbital- 2021-05 Yes [id number] 1{capsu Take 1 [facility] Acetaminoph 1-12 le} capsule by it y of en-Caff 00:00: mouth [place] (FIORICET) 00 every 6 Medica l 50-300-40 (six) Branch mg per hours as capsule needed for Other (headache) . rizatriptan 2021-05 Yes [id number] 10mg Take 1 [facility] 10 mg 1-12 tablet by ity of tablet 00:00: mouth as [place] 00 needed for Medical Migraine. Branch May repeat in 2 hours if needed Butalbital- 2021-05 Yes [id number] 1{capsu Take 1 [facility] Acetaminoph 1-12 le} capsule by it y of en-Caff 00:00: mouth [place] (FIORICET) 00 every 6 Medica l 50-300-40 (six) Branch mg per hours as capsule needed for Other (headache) . rizatriptan 2021-05 Yes [id number] 10mg Take 1 [facility] 10 mg 1-12 tablet by ity of tablet 00:00: mouth as [place] 00 needed for Medical Migraine. Branch May repeat in 2 hours if needed Butalbital- 2021-05 Yes [id number] 1{capsu Take 1 [facility] Acetaminoph 1-12 le} capsule by it y of en-Caff 00:00: mouth [place] (FIORICET) 00 every 6 Medica l 50-300-40 (six) Branch mg per hours as capsule needed for Other (headache) . rizatriptan 2021-05 Yes [id number] 10mg Take 1 [facility] 10 mg 1-12 tablet by ity of tablet 00:00: mouth as [place] 00 needed for Medical Migraine. Branch May repeat in 2 hours if needed Butalbital- 2021-05 Yes [id number] 1{capsu Take 1 [facility] Acetaminoph 1-12 le} capsule by it y of en-Caff 00:00: mouth [place] (FIORICET) 00 every 6 Medica l 50-300-40 (six) Branch mg per hours as capsule needed for Other (headache) . rizatriptan 2021-05 Yes [id number] 10mg Take 1 [facility] 10 mg 1-12 tablet by ity of tablet 00:00: mouth as [place] 00 needed for Medical Migraine. Branch May repeat in 2 hours if needed Butalbital- 2021-05 Yes [id number] 1{capsu Take 1 [facility] Acetaminoph 1-12 le} capsule by it y of en-Caff 00:00: mouth [place] (FIORICET) 00 every 6 Medica l 50-300-40 (six) Branch mg per hours as capsule needed for Other (headache) . rizatriptan 2021-05 Yes [id number] 10mg Take 1 [facility] 10 mg 1-12 tablet by ity of tablet 00:00: mouth as [place] 00 needed for Medical Migraine. Branch May repeat in 2 hours if needed Butalbital- 2021-05 Yes [id number] 1{capsu Take 1 [facility] Acetaminoph 1-12 le} capsule by it y of en-Caff 00:00: mouth [place] (FIORICET) 00 every 6 Medica l 50-300-40 (six) Branch mg per hours as capsule needed for Other (headache) . rizatriptan 2021-05 Yes [id number] 10mg Take 1 [facility] 10 mg 1-12 tablet by ity of tablet 00:00: mouth as [place] 00 needed for Medical Migraine. Branch May repeat in 2 hours if needed Butalbital- 2021-05 Yes [id number] 1{capsu Take 1 [facility] Acetaminoph 1-12 le} capsule by it y of en-Caff 00:00: mouth [place] (FIORICET) 00 every 6 Medica l 50-300-40 (six) Branch mg per hours as capsule needed for Other (headache) . rizatriptan 2021-05 Yes [id number] 10mg Take 1 [facility] 10 mg 1-12 tablet by ity of tablet 00:00: mouth as [place] 00 needed for Medical Migraine. Branch May repeat in 2 hours if needed Butalbital- 2021-05 Yes [id number] 1{capsu Take 1 [facility] Acetaminoph 1-12 le} capsule by it y of en-Caff 00:00: mouth [place] (FIORICET) 00 every 6 Medica l 50-300-40 (six) Branch mg per hours as capsule needed for Other (headache) . rizatriptan 2021-05 Yes [id number] 10mg Take 1 [facility] 10 mg 1-12 tablet by ity of tablet 00:00: mouth as [place] 00 needed for Medical Migraine. Branch May repeat in 2 hours if needed Butalbital- 2021-05 Yes [id number] 1{capsu Take 1 [facility] Acetaminoph 1-12 le} capsule by it y of en-Caff 00:00: mouth [place] (FIORICET) 00 every 6 Medica l 50-300-40 (six) Branch mg per hours as capsule needed for Other (headache) . rizatriptan 2021-05 Yes [id number] 10mg Take 1 [facility] 10 mg 1-12 tablet by ity of tablet 00:00: mouth as [place] 00 needed for Medical Migraine. Branch May repeat in 2 hours if needed Butalbital- 2021-05 Yes [id number] 1{capsu Take 1 [facility] Acetaminoph 1-12 le} capsule by it y of en-Caff 00:00: mouth [place] (FIORICET) 00 every 6 Medica l 50-300-40 (six) Branch mg per hours as capsule needed for Other (headache) . rizatriptan 2021-05 Yes [id number] 10mg Take 1 [facility] 10 mg 1-12 tablet by ity of tablet 00:00: mouth as [place] 00 needed for Medical Migraine. Branch May repeat in 2 hours if needed Butalbital- 2021-05 Yes [id number] 1{capsu Take 1 [facility] Acetaminoph 1-12 le} capsule by it y of en-Caff 00:00: mouth [place] (FIORICET) 00 every 6 Medica l 50-300-40 (six) Branch mg per hours as capsule needed for Other (headache) . rizatriptan 2021-05 Yes [id number] 10mg Take 1 [facility] 10 mg 1-12 tablet by ity of tablet 00:00: mouth as [place] 00 needed for Medical Migraine. Branch May repeat in 2 hours if needed Butalbital- 2021-05 Yes [id number] 1{capsu Take 1 [facility] Acetaminoph 1-12 le} capsule by it y of en-Caff 00:00: mouth [place] (FIORICET) 00 every 6 Medica l 50-300-40 (six) Branch mg per hours as capsule needed for Other (headache) . rizatriptan 2021-05 Yes [id number] 10mg Take 1 [facility] 10 mg 1-12 tablet by ity of tablet 00:00: mouth as [place] 00 needed for Medical Migraine. Branch May repeat in 2 hours if needed Butalbital- 2021-05 Yes [id number] 1{capsu Take 1 [facility] Acetaminoph 1-12 le} capsule by it y of en-Caff 00:00: mouth [place] (FIORICET) 00 every 6 Medica l 50-300-40 (six) Branch mg per hours as capsule needed for Other (headache) . rizatriptan 2021-05 Yes [id number] 10mg Take 1 [facility] 10 mg 1-12 tablet by ity of tablet 00:00: mouth as [place] 00 needed for Medical Migraine. Branch May repeat in 2 hours if needed Butalbital- 2021-05 Yes [id number] 1{capsu Take 1 [facility] Acetaminoph 1-12 le} capsule by it y of en-Caff 00:00: mouth [place] (FIORICET) 00 every 6 Medica l 50-300-40 (six) Branch mg per hours as capsule needed for Other (headache) . rizatriptan 2021-05 Yes [id number] 10mg Take 1 [facility] 10 mg 1-12 tablet by ity of tablet 00:00: mouth as [place] 00 needed for Medical Migraine. Branch May repeat in 2 hours if needed Butalbital- 2021-05 Yes [id number] 1{capsu Take 1 [facility] Acetaminoph 1-12 le} capsule by it y of en-Caff 00:00: mouth [place] (FIORICET) 00 every 6 Medica l 50-300-40 (six) Branch mg per hours as capsule needed for Other (headache) . rizatriptan 2021-05 Yes [id number] 10mg Take 1 [facility] 10 mg 1-12 tablet by ity of tablet 00:00: mouth as [place] 00 needed for Medical Migraine. Branch May repeat in 2 hours if needed Butalbital- 2021-05 Yes [id number] 1{capsu Take 1 [facility] Acetaminoph 1-12 le} capsule by it y of en-Caff 00:00: mouth [place] (FIORICET) 00 every 6 Medica l 50-300-40 (six) Branch mg per hours as capsule needed for Other (headache) . rizatriptan 2021-05 Yes [id number] 10mg Take 1 [facility] 10 mg 1-12 tablet by ity of tablet 00:00: mouth as [place] 00 needed for Medical Migraine. Branch May repeat in 2 hours if needed Butalbital- 2021-05 Yes [id number] 1{capsu Take 1 [facility] Acetaminoph 1-12 le} capsule by it y of en-Caff 00:00: mouth [place] (FIORICET) 00 every 6 Medica l 50-300-40 (six) Branch mg per hours as capsule needed for Other (headache) . rizatriptan 2021-05 Yes [id number] 10mg Take 1 [facility] 10 mg 1-12 tablet by ity of tablet 00:00: mouth as [place] 00 needed for Medical Migraine. Branch May repeat in 2 hours if needed Butalbital- 2021-05 Yes [id number] 1{capsu Take 1 [facility] Acetaminoph 1-12 le} capsule by it y of en-Caff 00:00: mouth [place] (FIORICET) 00 every 6 Medica l 50-300-40 (six) Branch mg per hours as capsule needed for Other (headache) . rizatriptan 2021-05 Yes [id number] 10mg Take 1 [facility] 10 mg 1-12 tablet by ity of tablet 00:00: mouth as [place] 00 needed for Medical Migraine. Branch May repeat in 2 hours if needed Butalbital- 2021-05 Yes [id number] 1{capsu Take 1 [facility] Acetaminoph 1-12 le} capsule by it y of en-Caff 00:00: mouth [place] (FIORICET) 00 every 6 Medica l 50-300-40 (six) Branch mg per hours as capsule needed for Other (headache) . rizatriptan 2021-05 Yes [id number] 10mg Take 1 [facility] 10 mg 1-12 tablet by ity of tablet 00:00: mouth as [place] 00 needed for Medical Migraine. Branch May repeat in 2 hours if needed Butalbital- 2021-05 Yes [id number] 1{capsu Take 1 [facility] Acetaminoph 1-12 le} capsule by it y of en-Caff 00:00: mouth [place] (FIORICET) 00 every 6 Medica l 50-300-40 (six) Branch mg per hours as capsule needed for Other (headache) . rizatriptan 2021-05 Yes [id number] 10mg Take 1 [facility] 10 mg 1-12 tablet by ity of tablet 00:00: mouth as [place] 00 needed for Medical Migraine. Branch May repeat in 2 hours if needed Butalbital- 2021-05 Yes [id number] 1{capsu Take 1 [facility] Acetaminoph 1-12 le} capsule by it y of en-Caff 00:00: mouth [place] (FIORICET) 00 every 6 Medica l 50-300-40 (six) Branch mg per hours as capsule needed for Other (headache) . rizatriptan 2021-05 Yes [id number] 10mg Take 1 [facility] 10 mg 1-12 tablet by ity of tablet 00:00: mouth as [place] 00 needed for Medical Migraine. Branch May repeat in 2 hours if needed Butalbital- 2021-05 Yes [id number] 1{capsu Take 1 [facility] Acetaminoph 1-12 le} capsule by it y of en-Caff 00:00: mouth [place] (FIORICET) 00 every 6 Medica l 50-300-40 (six) Branch mg per hours as capsule needed for Other (headache) . rizatriptan 2021-05 Yes [id number] 10mg Take 1 [facility] 10 mg 1-12 tablet by ity of tablet 00:00: mouth as [place] 00 needed for Medical Migraine. Branch May repeat in 2 hours if needed Butalbital- 2021-05 Yes [id number] 1{capsu Take 1 [facility] Acetaminoph 1-12 le} capsule by it y of en-Caff 00:00: mouth [place] (FIORICET) 00 every 6 Medica l 50-300-40 (six) Branch mg per hours as capsule needed for Other (headache) . rizatriptan 2021-05 Yes [id number] 10mg Take 1 [facility] 10 mg 1-12 tablet by ity of tablet 00:00: mouth as [place] 00 needed for Medical Migraine. Branch May repeat in 2 hours if needed Butalbital- 2021-05 Yes [id number] 1{capsu Take 1 [facility] Acetaminoph 1-12 le} capsule by it y of en-Caff 00:00: mouth [place] (FIORICET) 00 every 6 Medica l 50-300-40 (six) Branch mg per hours as capsule needed for Other (headache) . rizatriptan 2021-05 Yes [id number] 10mg Take 1 [facility] 10 mg 1-12 tablet by ity of tablet 00:00: mouth as [place] 00 needed for Medical Migraine. Branch May repeat in 2 hours if needed Butalbital- 2021-05 Yes [id number] 1{capsu Take 1 [facility] Acetaminoph 1-12 le} capsule by it y of en-Caff 00:00: mouth [place] (FIORICET) 00 every 6 Medica l 50-300-40 (six) Branch mg per hours as capsule needed for Other (headache) . rizatriptan 2021-05 Yes [id number] 10mg Take 1 [facility] 10 mg 1-12 tablet by ity of tablet 00:00: mouth as [place] 00 needed for Medical Migraine. Branch May repeat in 2 hours if needed Butalbital- 2021-05 Yes [id number] 1{capsu Take 1 [facility] Acetaminoph 1-12 le} capsule by it y of en-Caff 00:00: mouth [place] (FIORICET) 00 every 6 Medica l 50-300-40 (six) Branch mg per hours as capsule needed for Other (headache) . rizatriptan 2021-05 Yes [id number] 10mg Take 1 [facility] 10 mg 1-12 tablet by ity of tablet 00:00: mouth as [place] 00 needed for Medical Migraine. Branch May repeat in 2 hours if needed Butalbital- 2021-05 Yes [id number] 1{capsu Take 1 [facility] Acetaminoph 1-12 le} capsule by it y of en-Caff 00:00: mouth [place] (FIORICET) 00 every 6 Medica l 50-300-40 (six) Branch mg per hours as capsule needed for Other (headache) . rizatriptan 2021-05 Yes [id number] 10mg Take 1 [facility] 10 mg 1-12 tablet by ity of tablet 00:00: mouth as [place] 00 needed for Medical Migraine. Branch May repeat in 2 hours if needed Butalbital- 2021-05 Yes [id number] 1{capsu Take 1 [facility] Acetaminoph 1-12 le} capsule by it y of en-Caff 00:00: mouth [place] (FIORICET) 00 every 6 Medica l 50-300-40 (six) Branch mg per hours as capsule needed for Other (headache) . rizatriptan 2021-05 Yes [id number] 10mg Take 1 [facility] 10 mg 1-12 tablet by ity of tablet 00:00: mouth as [place] 00 needed for Medical Migraine. Branch May repeat in 2 hours if needed Butalbital- 2021-05 Yes [id number] 1{capsu Take 1 [facility] Acetaminoph 1-12 le} capsule by it y of en-Caff 00:00: mouth [place] (FIORICET) 00 every 6 Medica l 50-300-40 (six) Branch mg per hours as capsule needed for Other (headache) . rizatriptan 2021-05 Yes [id number] 10mg Take 1 [facility] 10 mg 1-12 tablet by ity of tablet 00:00: mouth as [place] 00 needed for Medical Migraine. Branch May repeat in 2 hours if needed Butalbital- 2021-05 Yes [id number] 1{capsu Take 1 [facility] Acetaminoph 1-12 le} [...] ONCE, 1 Medical 50 mcg dose, On [facility] 03/15/22 at 1030, Routine proMETHazin 2021-05 No 25mg 25 mg, Uni vers e 05-15 Oral, ity of (PHENERGAN) 14:45: 14:55 ONCE, 1 [place] tablet 25 00 :00 dose, On Medica l mg [facility] 03/15/22 at 0945, [place] FENTanyl PF 2021-05 No 50ug 50 mcg, Un sushant (SUBLIMAZE 05-15 Slow IV ity o f (PF)) 14:45: 13:58 Push, [place] injection 00 :00 ONCE, 1 Medical 50 mcg dose, On Branch [facility] 03/15/22 at 0945, Routine ondansetron 2021-05 No 4mg 4 mg, Slow Univers (ZOFRAN 1-03 11-03 IV Push, ity of (PF)) 14:00: 13:58 ONCE, 1 [place] injection 4 00 :00 dose, On Medi yessi mg [facility] Branch 03/15/22 at 0900, [place] ondansetron 2021-05 Yes [id number] 4mg Take 1 Univers 4 mg 1-03 tablet by ity of disintegrat 00:00: mouth [place] ing tablet 00 every 8 Medica l (eight) Branch hours as needed for Nausea and Vomiting (N/V). ketorolac 2021-05 Yes [id number] 10mg Take 1 U nivers 10 mg 1-03 tablet by ity of tablet 00:00: mouth [place] 00 every 6 Medical (six) Branch hours as needed for Pain (scale 7-10). proMETHazin 2021-05 Yes [id number] 25mg Take 1 Univers e 25 mg 1-03 tablet by ity of tablet 00:00: mouth [place] 00 every 6 Medical (six) Branch hours as needed for N/V unresponsi ve to Ondansetro n. ondansetron 2021-05 Yes [id number] 4mg Take 1 [facility] 4 mg 1-03 tablet by ity of disintegrat 00:00: mouth [place] ing tablet 00 every 8 Medica l (eight) Branch hours as needed for Nausea and Vomiting (N/V). ketorolac 2021-05 Yes [id number] 10mg Take 1 U nivers 10 mg 1-03 tablet by ity of tablet 00:00: mouth [place] 00 every 6 Medical (six) Branch hours as needed for Pain (scale 7-10). proMETHazin 2021-05 Yes [id number] 25mg Take 1 Univers e 25 mg 1-03 tablet by ity of tablet 00:00: mouth [place] 00 every 6 Medical (six) Branch hours as needed for N/V unresponsi ve to Ondansetro n. carvediloL 2021-05 Yes [id number] 25mg Take 1 U nivers 25 mg 1-03 tablet by ity of tablet 00:00: mouth in [place] 00 the Medical morning Branch and 1 tablet in the evening. Take with meals. ondansetron 2021-05 Yes [id number] 4mg Take 1 [facility] 4 mg 1-03 tablet by ity of disintegrat 00:00: mouth [place] ing tablet 00 every 8 Medica l (eight) Branch hours as needed for Nausea and Vomiting (N/V). ketorolac 2021-05 Yes [id number] 10mg Take 1 U nivers 10 mg 1-03 tablet by ity of tablet 00:00: mouth [place] 00 every 6 Medical (six) Branch hours as needed for Pain (scale 7-10). proMETHazin 2021-05 Yes [id number] 25mg Take 1 Univers e 25 mg 1-03 tablet by ity of tablet 00:00: mouth [place] 00 every 6 Medical (six) Branch hours as needed for N/V unresponsi ve to Ondansetro n. carvediloL 2021-05 Yes [id number] 25mg Take 1 U nivers 25 mg 1-03 tablet by ity of tablet 00:00: mouth in [place] 00 the Medical morning Branch and 1 tablet in the evening. Take with meals. ondansetron 2021-05 Yes [id number] 4mg Take 1 [facility] 4 mg 1-03 tablet by ity of disintegrat 00:00: mouth [place] ing tablet 00 every 8 Medica l (eight) Branch hours as needed for Nausea and Vomiting (N/V). ketorolac 2021-05 Yes [id number] 10mg Take 1 U nivers 10 mg 1-03 tablet by ity of tablet 00:00: mouth [place] 00 every 6 Medical (six) Branch hours as needed for Pain (scale 7-10). proMETHazin 2021-05 Yes [id number] 25mg Take 1 Univers e 25 mg 1-03 tablet by ity of tablet 00:00: mouth [place] 00 every 6 Medical (six) Branch hours as needed for N/V unresponsi ve to Ondansetro n. carvediloL 2021-05 Yes [id number] 25mg Take 1 U nivers 25 mg 1-03 tablet by ity of tablet 00:00: mouth in [place] 00 the Medical morning Branch and 1 tablet in the evening. Take with meals. ondansetron 2021-05 Yes [id number] 4mg Take 1 [facility] 4 mg 1-03 tablet by [facility] of disintegrat 00:00: mouth [place] ing tablet 00 every 8 Medica l (eight) Branch hours as needed for Nausea and Vomiting (N/V). ketorolac 2021-05 Yes [id number] 10mg Take 1 [facility] 10 mg 1-03 tablet by it[facility] of tablet 00:00: mouth [place] 00 every 6 Medical (six) Branch hours as needed for Pain (scale 7-10). proMETHazin 2021-05 Yes [id number] 25mg Take 1 [facility] 25 mg 1-03 tablet by [facility] of tablet 00:00: mouth [place] 00 every 6 Medical (six) Branch hours as needed for N/V unresponsi ve to Ondansetro n. carvediloL 2021-05 Yes [id number] 25mg Take 1 [facility] 25 mg 1-03 tablet by [facility] of tablet 00:00: mouth in [place] 00 the Medical morning Branch and 1 tablet in the evening. Take with meals. ondansetron 2021-05 Yes [id number] 4mg Take 1 [facility] 4 mg 1-03 tablet by [facility] of disintegrat 00:00: mouth [place] ing tablet 00 every 8 Medica l (eight) Branch hours as needed for Nausea and Vomiting (N/V). ketorolac 2021-05 Yes [id number] 10mg Take 1 [facility] 10 mg 1-03 tablet by [facility] of tablet 00:00: mouth [place] 00 every 6 Medical (six) Branch hours as needed for Pain (scale 7-10). proMETHazin 2021-05 Yes [id number] 25mg Take 1 [facility] 25 mg 1-03 tablet by [facility] of tablet 00:00: mouth [place] 00 every 6 Medical (six) Branch hours as needed for N/V unresponsi ve to Ondansetro n. carvediloL 2021-05 Yes [id number] 25mg Take 1 [facility] 25 mg 1-03 tablet by [facility] of tablet 00:00: mouth in [place] 00 the Medical morning Branch and 1 tablet in the evening. Take with meals. ondansetron 2021-05 Yes [id number] 4mg Take 1 [facility] 4 mg 1-03 tablet by [facility] of disintegrat 00:00: mouth [place] ing tablet 00 every 8 Medica l (eight) Branch hours as needed for Nausea and Vomiting (N/V). ketorolac 2021-05 Yes [id number] 10mg Take 1 [facility] 10 mg 1-03 tablet by [facility] of tablet 00:00: mouth [place] 00 every 6 Medical (six) Branch hours as needed for Pain (scale 7-10). proMETHazin 2021-05 Yes [id number] 25mg Take 1 [facility] 25 mg 1-03 tablet by [facility] of tablet 00:00: mouth [place] 00 every 6 Medical (six) Branch hours as needed for N/V unresponsi ve to Ondansetro n. carvediloL 2021-05 Yes [id number] 25mg Take 1 [facility] 25 mg 1-03 tablet by [facility] of tablet 00:00: mouth in [place] 00 the Medical morning Branch and 1 tablet in the evening. Take with meals. ondansetron 2021-05 Yes [id number] 4mg Take 1 [facility] 4 mg 1-03 tablet by [facility] of disintegrat 00:00: mouth [place] ing tablet 00 every 8 Medica l (eight) Branch hours as needed for Nausea and Vomiting (N/V). ketorolac 2021-05 Yes [id number] 10mg Take 1 [facility] 10 mg 1-03 tablet by [facility] of tablet 00:00: mouth [place] 00 every 6 Medical (six) Branch hours as needed for Pain (scale 7-10). proMETHazin 2021-05 Yes [id number] 25mg Take 1 [facility] 25 mg 1-03 tablet by it[facility] of tablet 00:00: mouth [place] 00 every 6 Medical (six) Branch hours as needed for N/V unresponsi ve to Ondansetro n. carvediloL 2021-05 Yes [id number] 25mg Take 1 [facility] 25 mg 1-03 tablet by ity of tablet 00:00: mouth in [place] 00 the Medical morning Branch and 1 tablet in the evening. Take with meals. ondansetron 2021-05 Yes [id number] 4mg Take 1 [facility] 4 mg 1-03 tablet by ity of disintegrat 00:00: mouth [place] ing tablet 00 every 8 Medica l (eight) Branch hours as needed for Nausea and Vomiting (N/V). ketorolac 2021-05 Yes [id number] 10mg Take 1 [facility] 10 mg 1-03 tablet by ity of tablet 00:00: mouth [place] 00 every 6 Medical (six) Branch hours as needed for Pain (scale 7-10). proMETHazin 2021-05 Yes [id number] 25mg Take 1 [facility] 25 mg 1-03 tablet by [facility] of tablet 00:00: mouth [place] 00 every 6 Medical (six) Branch hours as needed for N/V unresponsi ve to Ondansetro n. carvediloL 2021-05 Yes [id number] 25mg Take 1 [facility] 25 mg 1-03 tablet by ity of tablet 00:00: mouth in [place] 00 the Medical morning Branch and 1 tablet in the evening. Take with meals. ondansetron 2021-05 Yes [id number] 4mg Take 1 [facility] 4 mg 1-03 tablet by it[facility] of disintegrat 00:00: mouth [place] ing tablet 00 every 8 Medica l (eight) Branch hours as needed for Nausea and Vomiting (N/V). ketorolac 2021-05 Yes [id number] 10mg Take 1 [facility] 10 mg 1-03 tablet by ity of tablet 00:00: mouth [place] 00 every 6 Medical (six) Branch hours as needed for Pain (scale 7-10). proMETHazin 2021-05 Yes [id number] 25mg Take 1 [facility] 25 mg 1-03 tablet by ity of tablet 00:00: mouth [place] 00 every 6 Medical (six) Branch hours as needed for N/V unresponsi ve to Ondansetro n. carvediloL 2021-05 Yes [id number] 25mg Take 1 [facility] 25 mg 1-03 tablet by ity of tablet 00:00: mouth in [place] 00 the [facility] morning Branch and 1 tablet in the evening. Take with meals. carvediloL 2021-05 Yes [id number] 25mg Take 1 [facility] n[facility] 25 mg 1-03 tablet by ity of tablet 00:00: mouth in [place] 00 the [facility] morning Branch and 1 tablet in the evening. Take with meals. carvediloL 2021-05 Yes [id number] 25mg Take 1 [facility] 25 mg 1-03 tablet by ity of tablet 00:00: mouth in [place] 00 the [facility] morning Branch and 1 tablet in the evening. Take with meals. carvediloL 2021-05 Yes [id number] 25mg Take 1 [facility] 25 mg 1-03 tablet by ity of tablet 00:00: mouth in [place] 00 the [facility] morning Branch and 1 tablet in the evening. Take with meals. carvediloL 2021-05 Yes [id number] 25mg Take 1 [facility] 25 mg 1-03 tablet by ity of tablet 00:00: mouth in [place] 00 the Medical morning Branch and 1 tablet in the evening. Take with meals. carvediloL 2021-05 Yes [id number] 25mg Take 1 [facility] 25 mg 1-03 tablet by ity of tablet 00:00: mouth in [place] 00 the Medical morning Branch and 1 tablet in the evening. Take with meals. carvediloL 2021-05 Yes [id number] 25mg Take 1 [facility] 25 mg 1-03 tablet by ity of tablet 00:00: mouth in [place] [address] the Medical morning Branch and 1 tablet in the evening. Take with meals. carvediloL 2021-05 Yes [id number] 25mg Take 1 [facility] 25 mg 1-03 tablet by ity of tablet 00:00: mouth in [place] [address] the Medical morning Branch and 1 tablet in the evening. Take with meals. carvediloL 2021-05 Yes [id number] 25mg Take 1 [facility] 25 mg 1-03 tablet by ity of tablet 00:00: mouth in [place] [address] the Medical morning [place] and 1 tablet in the evening. Take with meals. carvediloL 2021-05 Yes [id number] 25mg Take 1 [facility] 25 mg 1-03 tablet by ity of tablet 00:00: mouth in [place] [address] the Medical morning [place] and 1 tablet in the evening. Take with meals. carvediloL 2021-05 Yes [id number] 25mg Take 1 [facility] 25 mg 1-03 tablet by ity of tablet 00:00: mouth in [place] [address] the Medical morning [place] and 1 tablet in the evening. Take with meals. carvediloL 2021-05 Yes [id number] 25mg Take 1 [facility] 25 mg 1-03 tablet by ity of tablet 00:00: mouth in [place] [address] the Medical morning Branch and 1 tablet in the evening. Take with meals. carvediloL 2021-05 Yes [id number] 25mg Take 1 [facility] 25 mg 1-03 tablet by ity of tablet 00:00: mouth in [place] [address] the Medical morning Branch and 1 tablet in the evening. Take with meals. carvediloL 2021-05 Yes [id number] 25mg Take 1 [facility] 25 mg 1-03 tablet by ity of tablet 00:00: mouth in [place] [address] the Medical morning [place] and 1 tablet in the evening. Take with meals. carvediloL 2021-05 Yes [id number] 25mg Take 1 [facility] 25 mg 1-03 tablet by ity of tablet 00:00: mouth in [place] 00 the Medical morning Branch and 1 tablet in the evening. Take with meals. carvediloL 2021-05 Yes [id number] 25mg Take 1 [facility] 25 mg 1-03 tablet by ity of tablet 00:00: mouth in [place] 00 the Medical morning Branch and 1 tablet in the evening. Take with meals. carvediloL 2021-05 Yes [id number] 25mg Take 1 [facility] 25 mg 1-03 tablet by ity of tablet 00:00: mouth in [place] 00 the Medical morning Branch and 1 tablet in the evening. Take with meals. carvediloL 2021-05 Yes [id number] 25mg Take 1 [facility] 25 mg 1-03 tablet by ity of tablet 00:00: mouth in [place] [address] the Medical morning Branch and 1 tablet in the evening. Take with meals. carvediloL 2021-05 Yes [id number] 25mg Take 1 [facility] 25 mg 1-03 tablet by ity of tablet 00:00: mouth in [place] [address] the Medical morning [place] and 1 tablet in the evening. Take with meals. carvediloL 2021-05 Yes [id number] 25mg Take 1 [facility] 25 mg 1-03 tablet by ity of tablet 00:00: mouth in [place] [address] the Medical morning Branch and 1 tablet in the evening. Take with meals. carvediloL 2021-05 Yes [id number] 25mg Take 1 [facility] 25 mg 1-03 tablet by ity of tablet 00:00: mouth in [place] [address] the Medical morning Branch and 1 tablet in the evening. Take with meals. carvediloL 2021-05 Yes [id number] 25mg Take 1 [facility] 25 mg 1-03 tablet by ity of tablet 00:00: mouth in [place] 00 the Medical morning Branch and 1 tablet in the evening. Take with meals. carvediloL 2021-05- No [id number] 25mg Take 1 [facility] 25 mg 1-03 04-26 tablet by ity of tablet 00:00: 00:00 mouth in [place] 00 :00 the Medical morning Branch and 1 tablet in the evening. Take with meals. carvediloL 2021-05- No [id number] 25mg Take 1 [facility] 25 mg 1-03 04-26 tablet by ity of tablet 00:00: 00:00 mouth in [place] 00 :00 the Medical morning Branch and 1 tablet in the evening. Take with meals. ondansetron 2021-05- No [id number] 4mg Take 1 [facility] 4 mg 05-15 tablet by ity of disintegrat 00:00: 00:[place] 00 :00 every 8 Medica l (eight) Branch hours as needed for Nausea and Vomiting (N/V). ketorolac 2021-05- No [id number] 10mg Take 1 [facility] 10 mg 05-15 tablet by ity of tablet 00:00: 00:00 mouth [place] 00 :00 every 6 Medical (six) Branch hours as needed for Pain (scale 7-10). proMETHazin 2021-05- No [id number] 25mg Take 1 [facility] e 25 mg 05-15 tablet by ity of tablet 00:00: 00:00 mouth [place] 00 :00 every 6 Medical (six) Branch hours as needed for N/V unresponsi ve to Ondansetro n. cephALEXin 2021-05- No [id number] 500mg Take 1 [facility] 500 mg 05-15 capsule by ity of capsule 00:00: 05:59 mouth 4 [place] 00 :00 (four) Medical times Branch daily for 3 days. cephALEXin 2021-05- No [id number] 500mg Take 1 [facility] 500 mg 05-15 capsule by ity of capsule 00:00: 05:59 mouth 4 [place] 00 :00 (four) Medical times Branch daily for 3 days. cephALEXin 2021-05- No [id number] 500mg Take 1 [facility] 500 mg 05-15 capsule by ity of capsule 00:00: 05:59 mouth 4 [place] 00 :00 (four) Medical times Branch daily for 3 days. predniSONE 2021-05- No [id number] 20mg Take 1 [facility] 20 mg 0-31 03-15 tablet by ity of tablet 00:00: 04:59 mouth in [place] 00 :00 the Medical morning Branch for 2 days. methocarbam 2021-05- No 500mg 500 mg, U nivers oL 0-30 10-30 Oral, ity of (ROBAXIN) 16:45: 17:08 ONCE, 1 [place] :[place] dose, On Medic al mg [place] 03/11/22 at 1200, [place] dexamethaso 2021-05- No 10mg 10 mg, Uni vers ne sod phos 0-30 10-30 Slow IV ity of PF 16:00: 16:00 Push, [place] injection 00 :00 ONCE, 1 Medical 10 mg dose, On [facility] 03/11/22 at 1100, 1 mL diphenhydrA 2021-05- No 25mg 25 mg, Uni vers MINE 0-30 10-30 Slow IV ity of (BENADRYL) 15:46: 16:00 [place], [place] injection 00 :00 ONCE, 1 Medical 25 mg dose, On [facility] 03/11/22 at 1100, STAT NaCl 0.9% 2021-05 No 1000mL at 999 Uni vers (NS) IV 0-30 10-30 mL/hr, ity of infusion 15:45: 16:04 [place] 1,000 mL 00 :00 s, ONCE, 1 Medic al dose, On [facility] 03/11/22 at 1045, Routine butalbital- 2021-05- No [...] 00 :00 ONCE, 1 Medical dose, On [facility] 03/11/22 at 0945, [place] proMETHazin 2021-05- No 12.5mg 12.5 mg, Univers e 0-30 10-30 IV ity of (PHENERGAN) 14:45: 15:04 Piggyback, [place] 12.5 mg in 00 :00 ONCE, 1 Medica l NaCl 0.9% dose, On [place] (NS) 50 mL Sun IV 03/11/22 piggyback at 0945, [place] proMETHazin 2021-05 Yes [id number] 25mg Take 1 [facility] e 25 mg 0-30 tablet by ity of tablet 00:00: mouth [place] 00 every 6 Medical (six) Branch hours as needed for Nausea and Vomiting (N/V). methocarbam 2021-05 Yes [id number] 500mg Take 1 [facility] oL 500 mg 0-30 tablet by ity o f tablet 00:00: mouth 3 [place] 00 (three) Medical times Branch daily as needed for Pain (scale 7-10). proMETHazin 2021-05 Yes [id number] 25mg Take 1 [facility] e 25 mg 0-30 tablet by ity of tablet 00:00: mouth [place] 00 every 6 Medical (six) Branch hours as needed for Nausea and Vomiting (N/V). methocarbam 2021-05 Yes [id number] 500mg Take 1 [facility] oL 500 mg 0-30 tablet by ity o f tablet 00:00: mouth 3 [place] 00 (three) Medical times Branch daily as needed for Pain (scale 7-10). proMETHazin 2021-05 Yes [id number] 25mg Take 1 [facility] e 25 mg 0-30 tablet by ity of tablet 00:00: mouth [place] 00 every 6 Medical (six) Branch hours as needed for Nausea and Vomiting (N/V). methocarbam 2021-05 Yes [id number] 500mg Take 1 [facility] oL 500 mg 0-30 tablet by ity o f tablet 00:00: mouth 3 [place] 00 (three) Medical times Branch daily as needed for Pain (scale 7-10). proMETHazin 2021-05 Yes [id number] 25mg Take 1 [facility] e 25 mg 0-30 tablet by ity of tablet 00:00: mouth [place] 00 every 6 Medical (six) Branch hours as needed for Nausea and Vomiting (N/V). methocarbam 2021-05 Yes [id number] 500mg Take 1 [facility] oL 500 mg 0-30 tablet by ity o f tablet 00:00: mouth 3 [place] 00 (three) Medical times Branch daily as needed for Pain (scale 7-10). proMETHazin 2021-05 Yes [id number] 25mg Take 1 [facility] e 25 mg 0-30 tablet by ity of tablet 00:00: mouth [place] 00 every 6 Medical (six) Branch hours as needed for Nausea and Vomiting (N/V). methocarbam 2021-05 Yes [id number] 500mg Take 1 [facility] oL 500 mg 0-30 tablet by ity o f tablet 00:00: mouth 3 [place] 00 (three) Medical times Branch daily as needed for Pain (scale 7-10). proMETHazin 2021-05 Yes [id number] 25mg Take 1 [facility] e 25 mg 0-30 tablet by ity of tablet 00:00: mouth [place] 00 every 6 Medical (six) Branch hours as needed for Nausea and Vomiting (N/V). methocarbam 2021-05 Yes [id number] 500mg Take 1 [facility] oL 500 mg 0-30 tablet by ity o f tablet 00:00: mouth 3 00 (three) Medical times Branch daily as needed for Pain (scale 7-10). proMETHazin 2021-05 Yes [id number] 25mg Take 1 [facility] e 25 mg 0-30 tablet by ity of tablet 00:00: mouth [place] 00 every 6 Medical (six) Branch hours as needed for Nausea and Vomiting (N/V). methocarbam 2021-05 Yes [id number] 500mg Take 1 [facility] oL 500 mg 0-30 tablet by ity o f tablet 00:00: mouth 3 00 (three) Medical times Branch daily as needed for Pain (scale 7-10). proMETHazin 2021-05 Yes [id number] 25mg Take 1 [facility] e 25 mg 0-30 tablet by ity of tablet 00:00: mouth [place] 00 every 6 Medical (six) Branch hours as needed for Nausea and Vomiting (N/V). methocarbam 2021-05 Yes [id number] 500mg Take 1 [facility] oL 500 mg 0-30 tablet by ity o f tablet 00:00: mouth 3 00 (three) Medical times Branch daily as needed for Pain (scale 7-10). proMETHazin 2021-05 Yes [id number] 25mg Take 1 [facility] e 25 mg 0-30 tablet by ity of tablet 00:00: mouth [place] 00 every 6 Medical (six) Branch hours as needed for Nausea and Vomiting (N/V). methocarbam 2021-05 Yes [id number] 500mg Take 1 [facility] oL 500 mg 0-30 tablet by ity o f tablet 00:00: mouth 3 [place] 00 (three) Medical times Branch daily as needed for Pain (scale 7-10). proMETHazin 2021-05 Yes [id number] 25mg Take 1 [facility] e 25 mg 0-30 tablet by ity of tablet 00:00: mouth [place] 00 every 6 Medical (six) Branch hours as needed for Nausea and Vomiting (N/V). methocarbam 2021-05 Yes [id number] 500mg Take 1 [facility] oL 500 mg 0-30 tablet by ity o f tablet 00:00: mouth 3 [place] 00 (three) Medical times Branch daily as needed for Pain (scale 7-10). proMETHazin 2021-05 Yes [id number] 25mg Take 1 [facility] e 25 mg 0-30 tablet by ity of tablet 00:00: mouth [place] 00 every 6 Medical (six) Branch hours as needed for Nausea and Vomiting (N/V). methocarbam 2021-05 Yes [id number] 500mg Take 1 [facility] oL 500 mg 0-30 tablet by ity o f tablet 00:00: mouth 3 00 (three) Medical times Branch daily as needed for Pain (scale 7-10). proMETHazin 2021-05 Yes [id number] 25mg Take 1 [facility] e 25 mg 0-30 tablet by ity of tablet 00:00: mouth [place] 00 every 6 Medical (six) Branch hours as needed for Nausea and Vomiting (N/V). proMETHazin 2021-05 Yes [id number] 25mg Take 1 [facility] e 25 mg 0-30 tablet by ity of tablet 00:00: mouth [place] 00 every 6 Medical (six) Branch hours as needed for Nausea and Vomiting (N/V). proMETHazin 2021-05 Yes [id number] 25mg Take 1 [facility] e 25 mg 0-30 tablet by ity of tablet 00:00: mouth [place] 00 every 6 Medical (six) Branch hours as needed for Nausea and Vomiting (N/V). proMETHazin 2021-05 Yes [id number] 25mg Take 1 [facility] e 25 mg 0-30 tablet by ity of tablet 00:00: mouth [place] 00 every 6 Medical (six) Branch hours as needed for Nausea and Vomiting (N/V). proMETHazin 2021-05 Yes [id number] 25mg Take 1 [facility] e 25 mg 0-30 tablet by ity of tablet 00:00: mouth [place] 00 every 6 Medical (six) Branch hours as needed for Nausea and Vomiting (N/V). proMETHazin 2021-05 Yes [id number] 25mg Take 1 [facility] e 25 mg 0-30 tablet by ity of tablet 00:00: mouth [place] 00 every 6 Medical (six) Branch hours as needed for Nausea and Vomiting (N/V). proMETHazin 2021-05 Yes [id number] 25mg Take 1 [facility] e 25 mg 0-30 tablet by ity of tablet 00:00: mouth [place] 00 every 6 Medical (six) Branch hours as needed for Nausea and Vomiting (N/V). proMETHazin 2021-05 Yes [id number] 25mg Take 1 [facility] e 25 mg 0-30 tablet by ity of tablet 00:00: mouth [place] 00 every 6 Medical (six) Branch hours as needed for Nausea and Vomiting (N/V). proMETHazin 2021-05 Yes [id number] 25mg Take 1 [facility] e 25 mg 0-30 tablet by ity of tablet 00:00: mouth [place] 00 every 6 Medical (six) Branch hours as needed for Nausea and Vomiting (N/V). proMETHazin 2021-05 Yes [id number] 25mg Take 1 [facility] e 25 mg 0-30 tablet by ity of tablet 00:00: mouth [place] 00 every 6 Medical (six) Branch hours as needed for Nausea and Vomiting (N/V). proMETHazin 2021-05 Yes [id number] 25mg Take 1 [facility] e 25 mg 0-30 tablet by ity of tablet 00:00: mouth [place] 00 every 6 Medical (six) Branch hours as needed for Nausea and Vomiting (N/V). proMETHazin 2021-05 Yes [id number] 25mg Take 1 [facility] e 25 mg 0-30 tablet by ity of tablet 00:00: mouth [place] 00 every 6 Medical (six) Branch hours as needed for Nausea and Vomiting (N/V). proMETHazin 2021-05 Yes [id number] 25mg Take 1 [facility] e 25 mg 0-30 tablet by ity of tablet 00:00: mouth [place] 00 every 6 Medical (six) Branch hours as needed for Nausea and Vomiting (N/V). proMETHazin 2021-05 Yes [id number] 25mg Take 1 [facility] e 25 mg 0-30 tablet by ity of tablet 00:00: mouth [place] 00 every 6 Medical (six) Branch hours as needed for Nausea and Vomiting (N/V). proMETHazin 2021-05 Yes [id number] 25mg Take 1 [facility] e 25 mg 0-30 tablet by ity of tablet 00:00: mouth [place] 00 every 6 Medical (six) Branch hours as needed for Nausea and Vomiting (N/V). proMETHazin 2021-05 Yes [id number] 25mg Take 1 [facility] e 25 mg 0-30 tablet by ity of tablet 00:00: mouth [place] 00 every 6 Medical (six) Branch hours as needed for Nausea and Vomiting (N/V). proMETHazin 2021-05 Yes [id number] 25mg Take 1 [facility] e 25 mg 0-30 tablet by ity of tablet 00:00: mouth [place] 00 every 6 Medical (six) Branch hours as needed for Nausea and Vomiting (N/V). proMETHazin 2021-05- No [id number] 25mg Take 1 [facility] e 25 mg 0-30 03-21 tablet by ity of tablet 00:00: 00:00 mouth [place] 00 :00 every 6 Medical (six) Branch hours as needed for Nausea and Vomiting (N/V). methocarbam 2021-05- No [id number] 500mg Take 1 [facility] oL 500 mg 0-30 11-26 tablet by ity of tablet 00:00: 00:00 mouth 3 [place] 00 :00 (three) Medical times Branch daily as needed for Pain (scale 7-10). topiramate 2021-05 Yes [id number] 100mg Take 4 [facility] 25 mg 0-21 tablets by ity of tablet 00:00: mouth in [place] 00 the Medical morning. Branch topiramate 2021-05 Yes [id number] 100mg Take 4 [facility] 25 mg 0-21 tablets by ity of tablet 00:00: mouth in [place] 00 the Medical morning. Branch topiramate 2021-05 Yes [id number] 100mg Take 4 [facility] 25 mg 0-21 tablets by ity of tablet 00:00: mouth in [place] 00 the Medical morning. Branch topiramate 2021-05 Yes [id number] 100mg Take 4 [facility] 25 mg 0-21 tablets by ity of tablet 00:00: mouth in [place] 00 the Medical morning. Branch topiramate 2021-05 Yes [id number] 100mg Take 4 [facility] 25 mg 0-21 tablets by ity of tablet 00:00: mouth in [place] the Medical morning. Branch topiramate 2021-1 Yes [id number] 100mg Take 4 [facility] 25 mg 0-21 tablets by ity of tablet 00:00: mouth in [place] the Medical morning. Branch topiramate 2021-1 Yes [id number] 100mg Take 4 [facility] 25 mg 0-21 tablets by ity of tablet 00:00: mouth in [place] the Medical morning. Branch topiramate 2021-1 Yes [id number] 100mg Take 4 [facility] 25 mg 0-21 tablets by ity of tablet 00:00: mouth in [place] the Medical morning. Branch topiramate 2021-1 Yes [id number] 100mg Take 4 [facility] 25 mg 0-21 tablets by ity of tablet 00:00: mouth in [place] the Medical morning. Branch topiramate 2021-1 Yes [id number] 100mg Take 4 [facility] 25 mg 0-21 tablets by ity of tablet 00:00: mouth in [place] the Medical morning. Branch topiramate 2021- Yes [id number] 100mg Take 4 [facility] 25 mg 0-21 tablets by ity of tablet 00:00: mouth in [place] the Medical morning. Branch topiramate 2021- Yes [id number] 100mg Take 4 [facility] 25 mg 0-21 tablets by ity of tablet 00:00: mouth in [place] the Medical morning. Branch topiramate 2021-1 Yes [id number] 100mg Take 4 [facility] 25 mg 0-21 tablets by ity of tablet 00:00: mouth in [place] the Medical morning. Branch topiramate 2-1 Yes [id number] 100mg Take 4 [facility] 25 mg 0-21 tablets by ity of tablet 00:00: mouth in [place] the Medical morning. Branch topiramate 2-1 Yes [id number] 100mg Take 4 [facility] 25 mg 0-21 tablets by ity of tablet 00:00: mouth in [place] the Medical morning. Branch topiramate 2-1 Yes [id number] 100mg Take 4 [facility] 25 mg 0-21 tablets by ity of tablet 00:00: mouth in [place] the Medical morning. Branch topiramate 2021-1 Yes [id number] 100mg Take 4 [facility] 25 mg 0-21 tablets by ity of tablet 00:00: mouth in [place] 00 the Medical morning. Branch topiramate 2-1 Yes [id number] 100mg Take 4 [facility] 25 mg 0-21 tablets by ity of tablet 00:00: mouth in [place] the Medical morning. Branch topiramate 2-1 Yes [id number] 100mg Take 4 [facility] 25 mg 0-21 tablets by ity of tablet 00:00: mouth in [place] the Medical morning. Branch topiramate 2-1 Yes [id number] 100mg Take 4 [facility] 25 mg 0-21 tablets by ity of tablet 00:00: mouth in [place] the Medical morning. Branch topiramate 2-1 Yes [id number] 100mg Take 4 [facility] 25 mg 0-21 tablets by ity of tablet 00:00: mouth in [place] the Medical morning. Branch topiramate 2-1 Yes [id number] 100mg Take 4 [facility] 25 mg 0-21 tablets by ity of tablet 00:00: mouth in [place] the Medical morning. Branch topiramate 2021-1 Yes [id number] 100mg Take 4 [facility] 25 mg 0-21 tablets by ity of tablet 00:00: mouth in [place] the Medical morning. Branch topiramate 2-1 Yes [id number] 100mg Take 4 [facility] 25 mg 0-21 tablets by ity of tablet 00:00: mouth in [place] the Medical morning. Branch topiramate 2-1 Yes [id number] 100mg Take 4 [facility] 25 mg 0-21 tablets by ity of tablet 00:00: mouth in [place] the Medical morning. Branch topiramate 2-1 Yes [id number] 100mg Take 4 [facility] 25 mg 0-21 tablets by ity of tablet 00:00: mouth in [place] the Medical morning. Branch topiramate 2-1 Yes [id number] 100mg Take 4 [facility] 25 mg 0-21 tablets by ity of tablet 00:00: mouth in [place] the Medical morning. Branch topiramate 2022-1 Yes [id number] 100mg Take 4 [facility] 25 mg 0-21 tablets by ity of tablet 00:00: mouth in [place] 00 the Medical morning. Branch topiramate 2022-1 Yes [id number] 100mg Take 4 [facility] 25 mg 0-21 tablets by ity of tablet 00:00: mouth in [place] 00 the Medical morning. Branch topiramate 2022-1 Yes [id number] 100mg Take 4 [facility] 25 mg 0-21 tablets by ity of tablet 00:00: mouth in [place] the Medical morning. Branch topiramate 2021-1 Yes [id number] 100mg Take 4 [facility] 25 mg 0-21 tablets by ity of tablet 00:00: mouth in [place] the Medical morning. Branch topiramate 2021-1 Yes [id number] 100mg Take 4 [facility] 25 mg 0-21 tablets by ity of tablet 00:00: mouth in [place] the Medical morning. Branch topiramate 2021-1 Yes [id number] 100mg Take 4 [facility] 25 mg 0-21 tablets by ity of tablet 00:00: mouth in [place] the Medical morning. Branch topiramate 2021-1 Yes [id number] 100mg Take 4 [facility] 25 mg 0-21 tablets by ity of tablet 00:00: mouth in [place] the Medical morning. Branch topiramate 2021-1 Yes [id number] 100mg Take 4 [facility] 25 mg 0-21 tablets by ity of tablet 00:00: mouth in [place] the Medical morning. Branch topiramate 2021- Yes [id number] 100mg Take 4 [facility] 25 mg 0-21 tablets by ity of tablet 00:00: mouth in [place] the Medical morning. Branch topiramate 2021- Yes [id number] 100mg Take 4 [facility] 25 mg 0-21 tablets by ity of tablet 00:00: mouth in [place] the Medical morning. Branch topiramate 2021-1 Yes [id number] 100mg Take 4 [facility] 25 mg 0-21 tablets by ity of tablet 00:00: mouth in [place] the Medical morning. Branch topiramate 2-1 Yes [id number] 100mg Take 4 [facility] 25 mg 0-21 tablets by ity of tablet 00:00: mouth in [place] the Medical morning. Branch topiramate 2-1 Yes [id number] 100mg Take 4 [facility] 25 mg 0-21 tablets by ity of tablet 00:00: mouth in [place] the Medical morning. Branch topiramate 2-1 Yes [id number] 100mg Take 4 [facility] 25 mg 0-21 tablets by ity of tablet 00:00: mouth in [place] the Medical morning. Branch topiramate 2021-1 Yes [id number] 100mg Take 4 [facility] 25 mg 0-21 tablets by ity of tablet 00:00: mouth in [place] the Medical morning. Branch diphenhydrA 2021-05- No 25mg Take 25 mg [facility] MINE 25 mg 0-18 10-18 by mouth ity of capsule 09:39: 00:00 every 6 [place] 59 :00 (six) Medical hours as Branch needed for Allergies. diphenhydrA 2021-05- No 25mg Take 25 mg [facility] MINE 25 mg 0-18 10-18 by mouth ity of capsule 09:39: 00:00 every 6 [place] 59 :00 (six) Medical hours as Branch [...] ity of capsule 09:39: 00:00 every 6 [place] 59 :00 (six) Medical hours as Branch [...] 28 :00 Medical Branch albuterol 2021-05 Yes [id number] 2{puff} Inhale 2 [facility] 90 0-18 Puffs ity of mcg/actuati 00:00: every 6 [place] on inhaler 00 (six) Medical hours as Branch needed for Wheezing or Shortness of Breath. albuterol 2021-05 Yes [id number] 2{puff} Inhale 2 [facility] 90 0-18 Puffs ity of mcg/actuati 00:00: every 6 [place] on inhaler 00 (six) Medical hours as Branch needed for Wheezing or Shortness of Breath. albuterol 2021-05 Yes [id number] 2{puff} Inhale 2 [facility] 90 0-18 Puffs ity of mcg/actuati 00:00: every 6 [place] on inhaler 00 (six) Medical hours as Branch needed for Wheezing or Shortness of Breath. albuterol 2021-05 Yes [id number] 2{puff} Inhale 2 [facility] 90 0-18 Puffs ity of mcg/actuati 00:00: every 6 [place] on inhaler 00 (six) Medical hours as Branch needed for Wheezing or Shortness of Breath. albuterol 2021-05 Yes [id number] 2{puff} Inhale 2 [facility] 90 0-18 Puffs ity of mcg/actuati 00:00: every 6 [place] on inhaler 00 (six) Medical hours as Branch needed for Wheezing or Shortness of Breath. albuterol 2021-05 Yes [id number] 2{puff} Inhale 2 [facility] 90 0-18 Puffs ity of mcg/actuati 00:00: every 6 [place] on inhaler 00 (six) Medical hours as Branch needed for Wheezing or Shortness of Breath. albuterol 2021-05 Yes [id number] 2{puff} Inhale 2 [facility] 90 0-18 Puffs ity of mcg/actuati 00:00: every 6 [place] on inhaler 00 (six) Medical hours as Branch needed for Wheezing or Shortness of Breath. albuterol 2021-05 Yes [id number] 2{puff} Inhale 2 [facility] 90 0-18 Puffs ity of mcg/actuati 00:00: every 6 [place] on inhaler 00 (six) Medical hours as Branch needed for Wheezing or Shortness of Breath. albuterol 2021-05 Yes [id number] 2{puff} Inhale 2 [facility] 90 0-18 Puffs ity of mcg/actuati 00:00: every 6 [place] on inhaler 00 (six) Medical hours as Branch needed for Wheezing or Shortness of Breath. albuterol 2021-05 Yes [id number] 2{puff} Inhale 2 [facility] 90 0-18 Puffs ity of mcg/actuati 00:00: every 6 [place] on inhaler 00 (six) Medical hours as Branch needed for Wheezing or Shortness of Breath. albuterol 2021-05 Yes [id number] 2{puff} Inhale 2 [facility] 90 0-18 Puffs ity of mcg/actuati 00:00: every 6 [place] on inhaler 00 (six) Medical hours as Branch needed for Wheezing or Shortness of Breath. albuterol 2021-05 Yes [id number] 2{puff} Inhale 2 [facility] 90 0-18 Puffs ity of mcg/actuati 00:00: every 6 [place] on inhaler 00 (six) Medical hours as Branch needed for Wheezing or Shortness of Breath. albuterol 2021-05 Yes [id number] 2{puff} Inhale 2 [facility] 90 0-18 Puffs ity of mcg/actuati 00:00: every 6 [place] on inhaler 00 (six) Medical hours as Branch needed for Wheezing or Shortness of Breath. albuterol 2021-05 Yes [id number] 2{puff} Inhale 2 [facility] 90 0-18 Puffs ity of mcg/actuati 00:00: every 6 [place] on inhaler 00 (six) Medical hours as Branch needed for Wheezing or Shortness of Breath. albuterol 2021-05 Yes [id number] 2{puff} Inhale 2 [facility] 90 0-18 Puffs ity of mcg/actuati 00:00: every 6 [place] on inhaler 00 (six) Medical hours as Branch needed for Wheezing or Shortness of Breath. albuterol 2021-05 Yes [id number] 2{puff} Inhale 2 [facility] 90 0-18 Puffs ity of mcg/actuati 00:00: every 6 [place] on inhaler 00 (six) Medical hours as Branch needed for Wheezing or Shortness of Breath. albuterol 2021-05 Yes [id number] 2{puff} Inhale 2 [facility] 90 0-18 Puffs ity of mcg/actuati 00:00: every 6 [place] on inhaler 00 (six) Medical hours as Branch needed for Wheezing or Shortness of Breath. albuterol 2021-05 Yes [id number] 2{puff} Inhale 2 [facility] 90 0-18 Puffs ity of mcg/actuati 00:00: every 6 [place] on inhaler 00 (six) Medical hours as Branch needed for Wheezing or Shortness of Breath. albuterol 2021-05 Yes [id number] 2{puff} Inhale 2 [facility] 90 0-18 Puffs ity of mcg/actuati 00:00: every 6 [place] on inhaler 00 (six) Medical hours as Branch needed for Wheezing or Shortness of Breath. albuterol 2021-05 Yes [id number] 2{puff} Inhale 2 [facility] 90 0-18 Puffs ity of mcg/actuati 00:00: every 6 [place] on inhaler 00 (six) Medical hours as Branch needed for Wheezing or Shortness of Breath. albuterol 2021-05 Yes [id number] 2{puff} Inhale 2 [facility] 90 0-18 Puffs ity of mcg/actuati 00:00: every 6 [place] on inhaler 00 (six) Medical hours as Branch needed for Wheezing or Shortness of Breath. albuterol 2021-05 Yes [id number] 2{puff} Inhale 2 [facility] 90 0-18 Puffs ity of mcg/actuati 00:00: every 6 [place] on inhaler 00 (six) Medical hours as Branch needed for Wheezing or Shortness of Breath. albuterol 2021-05 Yes [id number] 2{puff} Inhale 2 [facility] 90 0-18 Puffs ity of mcg/actuati 00:00: every 6 [place] on inhaler 00 (six) Medical hours as Branch needed for Wheezing or Shortness of Breath. albuterol 2021-05 Yes [id number] 2{puff} Inhale 2 [facility] 90 0-18 Puffs ity of mcg/actuati 00:00: every 6 [place] on inhaler 00 (six) Medical hours as Branch needed for Wheezing or Shortness of Breath. albuterol 2021-05 Yes [id number] 2{puff} Inhale 2 [facility] 90 0-18 Puffs ity of mcg/actuati 00:00: every 6 [place] on inhaler 00 (six) Medical hours as Branch needed for Wheezing or Shortness of Breath. albuterol 2021-05 Yes [id number] 2{puff} Inhale 2 [facility] 90 0-18 Puffs ity of mcg/actuati 00:00: every 6 [place] as on inhaler 00 (six) Medical hours as Branch needed for Wheezing or Shortness of Breath. albuterol 2021-05 Yes [id number] 2{puff} Inhale 2 [facility] 90 0-18 Puffs ity of mcg/actuati 00:00: every 6 [place] on inhaler 00 (six) Medical hours as Branch needed for Wheezing or Shortness of Breath. albuterol 2021-05 Yes [id number] 2{puff} Inhale 2 [facility] 90 0-18 Puffs ity of mcg/actuati 00:00: every 6 [place] on inhaler 00 (six) Medical hours as Branch needed for Wheezing or Shortness of Breath. albuterol 2021-05 Yes [id number] 2{puff} Inhale 2 [facility] 90 0-18 Puffs ity of mcg/actuati 00:00: every 6 [place] on inhaler 00 (six) Medical hours as Branch needed for Wheezing or Shortness of Breath. albuterol 2021-05 Yes [id number] 2{puff} Inhale 2 [facility] 90 0-18 Puffs ity of mcg/actuati 00:00: every 6 [place] on inhaler 00 (six) Medical hours as Branch needed for Wheezing or Shortness of Breath. albuterol 2021-05 Yes [id number] 2{puff} Inhale 2 [facility] 90 0-18 Puffs ity of mcg/actuati 00:00: every 6 [place] on inhaler 00 (six) Medical hours as Branch needed for Wheezing or Shortness of Breath. albuterol 2021-05 Yes [id number] 2{puff} Inhale 2 [facility] 90 0-18 Puffs ity of mcg/actuati 00:00: every 6 [place] on inhaler 00 (six) Medical hours as Branch needed for Wheezing or Shortness of Breath. albuterol 2021-05 Yes [id number] 2{puff} Inhale 2 [facility] 90 0-18 Puffs ity of mcg/actuati 00:00: every 6 [place] on inhaler 00 (six) Medical hours as Branch needed for Wheezing or Shortness of Breath. albuterol 2021-05 Yes [id number] 2{puff} Inhale 2 [facility] 90 0-18 Puffs ity of mcg/actuati 00:00: every 6 [place] on inhaler 00 (six) Medical hours as Branch needed for Wheezing or Shortness of Breath. albuterol 2021-05 Yes [id number] 2{puff} Inhale 2 [facility] 90 0-18 Puffs ity of mcg/actuati 00:00: every 6 [place] on inhaler 00 (six) Medical hours as Branch needed for Wheezing or Shortness of Breath. albuterol 2021-05 Yes [id number] 2{puff} Inhale 2 [facility] 90 0-18 Puffs ity of mcg/actuati 00:00: every 6 [place] on inhaler 00 (six) Medical hours as Branch needed for Wheezing or Shortness of Breath. albuterol 2021-05 Yes [id number] 2{puff} Inhale 2 [facility] 90 0-18 Puffs ity of mcg/actuati 00:00: every 6 [place] on inhaler 00 (six) Medical hours as Branch needed for Wheezing or Shortness of Breath. albuterol 2021-05 Yes [id number] 2{puff} Inhale 2 [facility] 90 0-18 Puffs ity of mcg/actuati 00:00: every 6 [place] on inhaler 00 (six) Medical hours as Branch needed for Wheezing or Shortness of Breath. albuterol 2021-05 Yes [id number] 2{puff} Inhale 2 [facility] 90 0-18 Puffs ity of mcg/actuati 00:00: every 6 [place] on inhaler 00 (six) Medical hours as Branch needed for Wheezing or Shortness of Breath. albuterol 2021-05 Yes [id number] 2{puff} Inhale 2 [facility] 90 0-18 Puffs ity of mcg/actuati 00:00: every 6 [place] on inhaler 00 (six) Medical hours as Branch needed for Wheezing or Shortness of Breath. albuterol 2021-05 Yes [id number] 2{puff} Inhale 2 [facility] 90 0-18 Puffs ity of mcg/actuati 00:00: every 6 [place] on inhaler 00 (six) Medical hours as Branch needed for Wheezing or Shortness of Breath. albuterol 2021-05 Yes [id number] 2{puff} Inhale 2 [facility] 90 0-18 Puffs ity of mcg/actuati 00:00: every 6 [place] on inhaler 00 (six) Medical hours as Branch needed for Wheezing or Shortness of Breath. albuterol 2021-05 Yes [id number] 2{puff} Inhale 2 [facility] 90 0-18 Puffs ity of mcg/actuati 00:00: every 6 [place] on inhaler 00 (six) Medical hours as Branch needed for Wheezing or Shortness of Breath. albuterol 2021-05 Yes [id number] 2{puff} Inhale 2 [facility] 90 0-18 Puffs ity of mcg/actuati 00:00: every 6 [place] on inhaler 00 (six) Medical hours as Branch needed for Wheezing or Shortness of Breath. albuterol 2021-05 Yes [id number] 2{puff} Inhale 2 [facility] 90 0-18 Puffs ity of mcg/actuati 00:00: every 6 [place] on inhaler 00 (six) Medical hours as Branch needed for Wheezing or Shortness of Breath. albuterol 2021-05 Yes [id number] 2{puff} Inhale 2 [facility] 90 0-18 Puffs ity of mcg/actuati 00:00: every 6 [place] on inhaler 00 (six) Medical hours as Branch needed for Wheezing or Shortness of Breath. albuterol 2021-05 Yes [id number] 2{puff} Inhale 2 [facility] 90 0-18 Puffs [...] a 24 hour period. benzonatate 2021-05- No [id number] 200mg Take 1 [facility] 200 mg 0-18 10-26 capsule by ity of capsule 00:00: 04:59 mouth 3 [place] 00 :00 (three) Medical times Branch daily as needed for Cough for up to 7 days. benzonatate 2021-05- No [id number] 200mg Take 1 [facility] 200 mg 0-18 10-26 capsule by ity of capsule 00:00: 04:59 mouth 3 [place] 00 :00 (three) Medical times Branch daily as needed for Cough for up to 7 days. benzonatate 2021-05- No [id number] 200mg Take 1 [facility] 200 mg 0-18 10-26 capsule by ity of capsule 00:00: 04:59 mouth 3 [place] 00 :00 (three) Medical times Branch daily as needed for Cough for up to 7 days. benzonatate 2021-05- No [id number] 200mg Take 1 [facility] 200 mg 0-18 10-26 capsule by ity of capsule 00:00: 04:59 mouth 3 [place] 00 :00 (three) Medical times Branch daily as needed for Cough for up to 7 days. benzonatate 2021-05- No [id number] 200mg Take 1 [facility] 200 mg 0-18 10-26 capsule by ity of capsule 00:00: 04:59 mouth 3 [place] 00 :00 (three) Medical times Branch daily as needed for Cough for up to 7 days. benzonatate 2021-05- No [id number] 200mg Take 1 [facility] 200 mg 0-18 10-26 capsule by ity of capsule 00:00: 04:59 mouth 3 [place] 00 :00 (three) Medical times Branch daily as needed for Cough for up to 7 days. SUMAtriptan 2021-05 No [id number] 50mg Take 1 [facility] 50 mg [id number] tablet by ity of tablet 00:00: 04:59 mouth [place] 00 :[place] now for 1 Medical dose. [place] SUMAtriptan 2021-05 No [id number] 50mg Take 1 [facility] 50 mg 002-28 [id number] tablet by ity of tablet 00:00: 04:59 [place] 00 :[place] now for 1 Medical dose. [place] butalbital- 2021-05- No 1{tbl} 1 tablet, Univers [...] Medical Infusion, Branch ONCE, 1 dose, On [facility] 02/21/22 at 0215, [place] proMETHazin 2021-05 No 12.5mg 12.5 mg, Univers e 0-12 -12 IV ity of (PHENERGAN) 06:30: 06:38 Piggyback, [place] 12.5 mg in 00 :00 ONCE, 1 Medica l NaCl 0.9% dose, On [place] (NS) 50 mL Wed IV 02/21/22 piggyback [...] :00 ONCE, 1 Medical dose, On Branch [facility] 02/21/22 at 0130, [place] diphenhydrA 2021-05- No 25mg 25 mg, Uni vers MINE 002-21 Slow IV ity of (BENADRYL) 06:30: 06:38 [place], [place] injection 00 :00 ONCE, 1 Medical 25 mg dose, On Branch 02/21/22 at 0130, [place] FENTanyl PF 2021-05 No 50ug 50 mcg, Un sushant (SUBLIMAZE 02-18 Slow IV ity o f (PF)) 20:30: 19:44 Push, [place] injection 00 :00 ONCE, 1 Medical 50 mcg dose, On Branch [place] 02/18/22 at 1530, Routine ketorolac 2021-05 No 30mg 30 mg, Unive rs (TORADOL) 002-18 Slow IV ity of injection 20:15: 20:09 Push, [place] 30 mg 00 :00 ONCE, 1 Medical dose, On Branch [place] 02/18/22 at 1515, [place] iopamidol 2021-05- No [id number] 60mL 60 mL, Un sushant (ISOVUE 02-18 [...] ONCE, 1 Medical 50 mcg dose, On [facility] 02/18/22 at 1300, Routine ondansetron 2021-05- No 4mg 4 mg, Slow Univers (ZOFRAN 02-18 IV Push, ity of (PF)) 17:15: 17:27 ONCE, 1 [place] injection 4 00 :00 dose, On Medi yessi mg [facility] 02/18/22 at 1215, [place] morpHINE (2 2021- No 4mg 4 mg, Slow Univers mg/mL) 01-18 IV [place], ity of injection 4 15:15: 14:49 ONCE, 1 [place] mg 00 :00 dose, On [facility] 01/18/22 Branch at 1015, STAT ondansetron 2021- No 4mg 4 mg, Slow Univers (ZOFRAN 01-18 IV Push, ity of (PF)) 13:30: 13:33 ONCE, 1 [place] injection 4 00 :00 dose, On Medi yessi mg [facility] 01/18/22 Branch at 0830, [place] morpHINE (4 2021- No 4mg 4 mg, Slow Univers mg/mL) 01-18 IV Push, ity of injection 4 13:30: 13:34 ONCE, 1 [place] mg 00 :00 dose, On [facility] 01/18/22 Branch at 0830, STAT morpHINE (4 2021- No 4mg 4 mg, Slow Univers mg/mL) 01-18 IV Push, ity of injection 4 12:30: 11:39 ONCE, 1 [place] mg 00 :00 dose, On [facility] 01/18/22 Branch at 0730, STAT famotidine 2021-2021- No 20mg 20 mg, Univ ers (PEPCID 01-18 Slow IV ity of (PF)) 11:30: 10:52 Push, [place] injection 00 :00 ONCE, 1 Medical 20 mg dose, On [facility] 01/18/22 at 0630, [place] ondansetron 2021- No 4mg 4 mg, Slow Univers (ZOFRAN 01-18 IV Push, ity of (PF)) 11:30: 10:52 ONCE, 1 [place] injection 4 00 :00 dose, On Medi yessi mg [place] 01/18/22 Branch at 0630, [place] iodixanoL 2021- No [id number] 80mL 80 mL, U nivers (VISIPAQUE 01-18 [...] Indication s: acute pain ondansetron 0 Yes [id number] 4mg Take 1 Univers 4 mg 01-18 [id number] tablet by ity of disintegrat 00:00: mouth [place] ing tablet 00 every 8 Medica l (eight) Branch hours as needed for Nausea and Vomiting (N/V). ibuprofen 2021-0 Yes [id number] 600mg Take 1 [facility] 600 mg 01-18 [id number] tablet by ity of tablet 00:00: mouth [place] 00 every 6 Medical (six) Branch hours as needed for Pain (scale 4-6). traMADoL 50 2021-0 Yes [id number] 50mg Take 1 Univ ers mg tablet -08 tablet by ity o f 00:00: mouth [place] 00 every 6 Medical (six) Branch hours as needed for Pain (scale 7-10). Indication s: acute pain ondansetron 2022-0 Yes [id number] 4mg Take 1 Univers 4 mg 9-08 [id number] tablet by ity of disintegrat 00:00: mouth [place] ing tablet 00 every 8 Medica l (eight) Branch hours as needed for Nausea and Vomiting (N/V). ibuprofen 2022-0 Yes [id number] 600mg Take 1 [facility] 600 mg 9-08 [id number] tablet by ity of tablet 00:00: mouth [place] 00 every 6 Medical (six) Branch hours as needed for Pain (scale 4-6). traMADoL 50 2021-0 Yes [id number] 50mg Take 1 Univ ers mg tablet 9-08 tablet by ity o f 00:00: mouth [place] 00 every 6 Medical (six) Branch hours as needed for Pain (scale 7-10). Indication s: acute pain ondansetron 2-0 Yes [id number] 4mg Take 1 Univers 4 mg 9-08 [id number] tablet by ity of disintegrat 00:00: mouth [place] ing tablet 00 every 8 Medica l (eight) Branch hours as needed for Nausea and Vomiting (N/V). ibuprofen 2-0 Yes [id number] 600mg Take 1 [facility] 600 mg 9-08 [id number] tablet by ity of tablet 00:00: mouth [place] 00 every 6 Medical (six) Branch hours as needed for Pain (scale 4-6). traMADoL 50 2021-0 Yes [id number] 50mg Take 1 Univ ers mg tablet 9-08 tablet by ity o f 00:00: mouth [place] 00 every 6 Medical (six) Branch hours as needed for Pain (scale 7-10). Indication s: acute pain ondansetron 2022-0 Yes [id number] 4mg Take 1 Univers 4 mg 9-08 [id number] tablet by ity of disintegrat 00:00: mouth [place] ing tablet 00 every 8 Medica l (eight) Branch hours as needed for Nausea and Vomiting (N/V). ibuprofen 2022-0 Yes [id number] 600mg Take 1 [facility] 600 mg 9-08 [id number] tablet by ity of tablet 00:00: mouth [place] 00 every 6 Medical (six) Branch hours as needed for Pain (scale 4-6). traMADoL 50 2021-0 Yes [id number] 50mg Take 1 Univ ers mg tablet 9-08 tablet by ity o f 00:00: mouth [place] 00 every 6 Medical (six) Branch hours as needed for Pain (scale 7-10). Indication s: acute pain ondansetron 2022-0 Yes [id number] 4mg Take 1 Univers 4 mg 9-08 [id number] tablet by ity of disintegrat 00:00: mouth [place] ing tablet 00 every 8 Medica l (eight) Branch hours as needed for Nausea and Vomiting (N/V). ibuprofen 2022-0 Yes [id number] 600mg Take 1 Univers 600 mg 9-08 [id number] tablet by ity of tablet 00:00: mouth [place] 00 every 6 Medical (six) Branch hours as needed for Pain (scale 4-6). traMADoL 50 2-0 Yes [id number] 50mg Take 1 Univ ers mg tablet 9-08 tablet by ity o f 00:00: mouth [place] 00 every 6 Medical (six) Branch hours as needed for Pain (scale 7-10). Indication s: acute pain ondansetron 2022-0 Yes [id number] 4mg Take 1 Univers 4 mg 9-08 [id number] tablet by ity of disintegrat 00:00: mouth [place] ing tablet 00 every 8 Medica l (eight) Branch hours as needed for Nausea and Vomiting (N/V). ibuprofen 2022-0 Yes [id number] 600mg Take 1 Univers 600 mg 9-08 [id number] tablet by ity of tablet 00:00: mouth [place] 00 every 6 Medical (six) Branch hours as needed for Pain (scale 4-6). traMADoL 50 2022-0 Yes [id number] 50mg Take 1 Univ ers mg tablet 9-08 tablet by ity o f 00:00: mouth [place] 00 every 6 Medical (six) Branch hours as needed for Pain (scale 7-10). Indication s: acute pain ondansetron 2022-0 Yes [id number] 4mg Take 1 Univers 4 mg 9-08 [id number] tablet by ity of disintegrat 00:00: mouth [place] ing tablet 00 every 8 Medica l (eight) Branch hours as needed for Nausea and Vomiting (N/V). ibuprofen 2022-0 Yes [id number] 600mg Take 1 Univers 600 mg 9-08 [id number] tablet by ity of tablet 00:00: mouth [place] 00 every 6 Medical (six) Branch hours as needed for Pain (scale 4-6). traMADoL 50 0 Yes [id number] 50mg Take 1 Univ ers mg tablet 9-08 tablet by ity o f 00:00: mouth [place] 00 every 6 Medical (six) Branch hours as needed for Pain (scale 7-10). Indication s: acute pain ondansetron 0 Yes [id number] 4mg Take 1 Univers 4 mg 9- 131613 tablet by ity of disintegrat 00:00: mouth [place] ing tablet 00 every 8 Medica l (eight) Branch hours as needed for Nausea and Vomiting (N/V). ibuprofen Yes [id number] 600mg Take 1 [facility] 600 mg 9- [id number] tablet by ity of tablet 00:00: mouth [place] 00 every 6 Medical (six) Branch hours as needed for Pain (scale 4-6). traMADoL 50 2021- No [id number] 50mg Take 1 Uni vers mg tablet 01-18-18 tablet by ity of 00:00: 00:00 mouth [place] 00 :00 every 6 Medical (six) Branch hours as needed for Pain (scale 7-10). Indication s: acute pain ondansetron 2021- No [id number] 4mg Take 1 Univers 4 mg -02-27 [id number] tablet by ity of disintegrat 00:00: 00:00 mouth [place] ing tablet 00 :00 every 8 Medica l (eight) Branch hours as needed for Nausea and Vomiting (N/V). ibuprofen 2021- No [id number] 600mg Take 1 [facility] 600 mg 9- 10-18 [id number] tablet by ity o f tablet 00:00: [...] Indication s: acute pain ondansetron 2021- No [id number] 4mg Take 1 Univers 4 mg 9-08 10-18 [id number] tablet by ity of disintegrat 00:00: 00:00 mouth [place] ing tablet 00 :00 every 8 Medica l (eight) Branch hours as needed for Nausea and Vomiting (N/V). ibuprofen 2021- No [id number] 600mg Take 1 [facility] 600 mg 01-18 [id number] tablet by ity o f tablet 00:00: [...] Indication s: acute pain ondansetron 2021-2021- No [id number] 4mg Take 1 Univers 4 mg 01-18 [id number] tablet by ity of disintegrat 00:00: 00:00 mouth [place] ing tablet 00 :00 every 8 Medica l (eight) Branch hours as needed for Nausea and Vomiting (N/V). ibuprofen 2021- No [id number] 600mg Take 1 [facility] 600 mg 01-18 [id number] tablet by ity o f tablet 00:00: [...] Indication s: acute pain ondansetron 2021-2021- No [id number] 4mg Take 1 [facility] 4 mg 01-18 [id number] tablet by ity of disintegrat 00:00: 00:00 mouth [place] ing tablet 00 :00 every 8 Medica l (eight) Branch hours as needed for Nausea and Vomiting (N/V). ibuprofen 2021-2- No [id number] 600mg Take 1 [facility] 600 mg 01-18 [id number] tablet by ity o f tablet 00:00: 00:00 mouth [place] 00 :00 every 6 Medical (six) Branch hours as needed for Pain (scale 4-6). predniSONE 2021- No [id number] 40mg Take 2 Univers 20 mg 01-16 tablets by ity of tablet 00:00: 04:59 mouth in [place] 00 :00 the Medical morning Branch for 7 days. predniSONE 2021-2021- No [id number] 40mg Take 2 Univers 20 mg 01-16 tablets by ity of tablet 00:00: 04:59 mouth in [place] 00 :00 the [facility] Branch for 7 days. morpHINE (4 [...] at 0915, 1 mL proMETHazin 0 Yes [id number] 25mg Take 1 Univers e 25 mg 9-05 tablet by ity of tablet 00:00: mouth [place] 00 every 6 Medical (six) Branch hours as needed for Nausea and Vomiting (N/V). proMETHazin 2021-0 Yes [id number] 25mg Take 1 Univers e 25 mg 9-05 tablet by ity of tablet 00:00: mouth [place] 00 every 6 Medical (six) Branch hours as needed for Nausea and Vomiting (N/V). proMETHazin 0 Yes [id number] 25mg Take 1 Univers e 25 mg 9-05 tablet by ity of tablet 00:00: mouth [place] 00 every 6 Medical (six) Branch hours as needed for Nausea and Vomiting (N/V). proMETHazin 2021-0 Yes [id number] 25mg Take 1 Univers e 25 mg 9-05 tablet by ity of tablet 00:00: mouth [place] 00 every 6 Medical (six) Branch hours as needed for Nausea and Vomiting (N/V). proMETHazin 2021-0 Yes [id number] 25mg Take 1 Univers e 25 mg 9-05 tablet by ity of tablet 00:00: mouth [place] 00 every 6 Medical (six) Branch hours as needed for Nausea and Vomiting (N/V). proMETHazin 2021-0 Yes [id number] 25mg Take 1 Univers e 25 mg 9-05 tablet by ity of tablet 00:00: mouth [place] 00 every 6 Medical (six) Branch hours as needed for Nausea and Vomiting (N/V). proMETHazin 2021-0 Yes [id number] 25mg Take 1 Univers e 25 mg 9-05 tablet by ity of tablet 00:00: mouth [place] 00 every 6 Medical (six) Branch hours as needed for Nausea and Vomiting (N/V). proMETHazin 2021-0 Yes [id number] 25mg Take 1 Univers e 25 mg 9-05 tablet by ity of tablet 00:00: mouth [place] 00 every 6 Medical (six) Branch hours as needed for Nausea and Vomiting (N/V). proMETHazin 2021- Yes [id number] 25mg Take 1 Univers e 25 mg 9-05 tablet by ity of tablet 00:00: mouth [place] 00 every 6 Medical (six) Branch hours as needed for Nausea and Vomiting (N/V). proMETHazin 2021- No [id number] 25mg Take 1 Univers e 25 mg 9-05 10-18 tablet by ity of tablet 00:00: 00:00 mouth [place] 00 :00 every 6 Medical (six) Branch hours as needed for Nausea and Vomiting (N/V). proMETHazin 2021- No [id number] 25mg Take 1 [facility] 25 mg 9-05 10-18 tablet by ity of tablet 00:00: 00:00 mouth [place] 00 :00 every 6 Medical (six) Branch hours as needed for Nausea and Vomiting (N/V). proMETHazin 2021- No [id number] 25mg Take 1 [facility] e 25 mg 9-05 10-18 tablet by ity of tablet 00:00: 00:00 mouth [place] 00 :00 every 6 Medical (six) Branch hours as needed for Nausea and Vomiting (N/V). proMETHazin 2021- No [id number] 25mg Take 1 [facility] e 25 mg [...] 01/08/22 at 1845, [place] ondansetron 0 Yes [id number] 4mg Take 1 [facility] 4 mg 8-29 tablet by ity of disintegrat 00:00: mouth [place] ing tablet 00 every 8 Medica l (eight) Branch hours as needed for Nausea and Vomiting (N/V). acetaminoph Yes [id number] 650mg Take 1 [facility] en (TYLENOL 8-29 tablet by ity of ARTHRITIS 00:00: mouth [place] PAIN) 650 00 every 8 Medical mg CR (eight) Branch tablet hours as needed for Pain. ketorolac 0 Yes [id number] 10mg Take 1 [facility] n[facility] 10 mg 8-29 tablet by ity of tablet 00:00: mouth [place] 00 every 6 Medical (six) Branch hours as needed for Pain (scale 4-6) or Pain (scale 7-10). metaxalone 0 Yes [id number] 800mg Take 1 [facility] (SKELAXIN) 8-29 tablet by ity of 800 mg 00:00: mouth in [place] tablet 00 the Medical morning Branch and 1 tablet at noon and 1 tablet in the evening. ondansetron 0 Yes [id number] 4mg Take 1 [facility] 4 mg 8-29 tablet by ity of disintegrat 00:00: mouth [place] ing tablet 00 every 8 Medica l (eight) Branch hours as needed for Nausea and Vomiting (N/V). acetaminoph 2022-0 Yes [id number] 650mg Take 1 [facility] en (TYLENOL 8-29 tablet by ity of ARTHRITIS 00:00: mouth [place] PAIN) 650 00 every 8 Medical mg CR (eight) Branch tablet hours as needed for Pain. ketorolac 2022-0 Yes [id number] 10mg Take 1 [facility] 10 mg 8-29 tablet by ity of tablet 00:00: mouth [place] 00 every 6 Medical (six) Branch hours as needed for Pain (scale 4-6) or Pain (scale 7-10). metaxalone 2022-0 Yes [id number] 800mg Take 1 [facility] (SKELAXIN) 8-29 tablet by ity of 800 mg 00:00: mouth in [place] tablet 00 the Medical morning Branch and 1 tablet at noon and 1 tablet in the evening. ondansetron 2-0 Yes [id number] 4mg Take 1 [facility] 4 mg 8-29 tablet by ity of disintegrat 00:00: mouth [place] ing tablet 00 every 8 Medica l (eight) Branch hours as needed for Nausea and Vomiting (N/V). acetaminoph 2-0 Yes [id number] 650mg Take 1 [facility] en (TYLENOL 8-29 tablet by ity of ARTHRITIS 00:00: mouth [place] PAIN) 650 00 every 8 Medical mg CR (eight) Branch tablet hours as needed for Pain. ketorolac 2022-0 Yes [id number] 10mg Take 1 [facility] 10 mg 8-29 tablet by ity of tablet 00:00: mouth [place] 00 every 6 Medical (six) Branch hours as needed for Pain (scale 4-6) or Pain (scale 7-10). metaxalone 2022-0 Yes [id number] 800mg Take 1 [facility] (SKELAXIN) 8-29 tablet by ity of 800 mg 00:00: mouth in [place] tablet 00 the Medical morning Branch and 1 tablet at noon and 1 tablet in the evening. ondansetron 2022-0 Yes [id number] 4mg Take 1 [facility] 4 mg 8-29 tablet by ity of disintegrat 00:00: mouth [place] ing tablet 00 every 8 Medica l (eight) Branch hours as needed for Nausea and Vomiting (N/V). acetaminoph 2022-0 Yes [id number] 650mg Take 1 [facility] en (TYLENOL 8-29 tablet by ity of ARTHRITIS 00:00: mouth [place] PAIN) 650 00 every 8 Medical mg CR (eight) Branch tablet hours as needed for Pain. ketorolac 2022-0 Yes [id number] 10mg Take 1 [facility] 10 mg 8-29 tablet by ity of tablet 00:00: mouth [place] 00 every 6 Medical (six) Branch hours as needed for Pain (scale 4-6) or Pain (scale 7-10). metaxalone 202-0 Yes [id number] 800mg Take 1 [facility] (SKELAXIN) 8-29 tablet by ity of 800 mg 00:00: mouth in [place] tablet 00 the Medical morning Branch and 1 tablet at noon and 1 tablet in the evening. ondansetron 2021-0 Yes [id number] 4mg Take 1 [facility] 4 mg 8-29 tablet by ity of disintegrat 00:00: mouth [place] ing tablet 00 every 8 Medica l (eight) Branch hours as needed for Nausea and Vomiting (N/V). acetaminoph 2021-0 Yes [id number] 650mg Take 1 [facility] en (TYLENOL 8-29 tablet by ity of ARTHRITIS 00:00: mouth [place] PAIN) 650 00 every 8 Medical mg CR (eight) Branch tablet hours as needed for Pain. ketorolac 2021-0 Yes [id number] 10mg Take 1 [facility] 10 mg 8-29 tablet by ity of tablet 00:00: mouth [place] 00 every 6 Medical (six) Branch hours as needed for Pain (scale 4-6) or Pain (scale 7-10). metaxalone 2-0 Yes [id number] 800mg Take 1 [facility] (SKELAXIN) 8-29 tablet by ity of 800 mg 00:00: mouth in [place] tablet 00 the Medical morning Branch and 1 tablet at noon and 1 tablet in the evening. ondansetron 2022-0 Yes [id number] 4mg Take 1 [facility] 4 mg 8-29 tablet by ity of disintegrat 00:00: mouth [place] ing tablet 00 every 8 Medica l (eight) Branch hours as needed for Nausea and Vomiting (N/V). acetaminoph 2022-0 Yes [id number] 650mg Take 1 [facility] en (TYLENOL 8-29 tablet by ity of ARTHRITIS 00:00: mouth [place] PAIN) 650 00 every 8 Medical mg CR (eight) Branch tablet hours as needed for Pain. ketorolac 202-0 Yes [id number] 10mg Take 1 [facility] 10 mg 8-29 tablet by ity of tablet 00:00: mouth [place] 00 every 6 Medical (six) Branch hours as needed for Pain (scale 4-6) or Pain (scale 7-10). metaxalone 2021-0 Yes [id number] 800mg Take 1 [facility] (SKELAXIN) 8-29 tablet by ity of 800 mg 00:00: mouth in [place] tablet 00 the Medical morning Branch and 1 tablet at noon and 1 tablet in the evening. ondansetron 2021-0 Yes [id number] 4mg Take 1 [facility] 4 mg 8-29 tablet by ity of disintegrat 00:00: mouth [place] ing tablet 00 every 8 Medica l (eight) Branch hours as needed for Nausea and Vomiting (N/V). acetaminoph 2021-0 Yes [id number] 650mg Take 1 [facility] en (TYLENOL 8-29 tablet by ity of ARTHRITIS 00:00: mouth [place] PAIN) 650 00 every 8 Medical mg CR (eight) Branch tablet hours as needed for Pain. ketorolac 2021-0 Yes [id number] 10mg Take 1 [facility] 10 mg 8-29 tablet by ity of tablet 00:00: mouth [place] 00 every 6 Medical (six) Branch hours as needed for Pain (scale 4-6) or Pain (scale 7-10). metaxalone 2021-0 Yes [id number] 800mg Take 1 [facility] (SKELAXIN) 8-29 tablet by ity of 800 mg 00:00: mouth in [place] tablet 00 the Medical morning Branch and 1 tablet at noon and 1 tablet in the evening. ondansetron 2022-0 Yes [id number] 4mg Take 1 [facility] 4 mg 8-29 tablet by ity of disintegrat 00:00: mouth [place] ing tablet 00 every 8 Medica l (eight) Branch hours as needed for Nausea and Vomiting (N/V). acetaminoph 2021-0 Yes [id number] 650mg Take 1 [facility] en (TYLENOL 8-29 tablet by ity of ARTHRITIS 00:00: mouth [place] PAIN) 650 00 every 8 Medical mg CR (eight) Branch tablet hours as needed for Pain. ketorolac 2022-0 Yes [id number] 10mg Take 1 [facility] n[facility] 10 mg 8-29 tablet by ity of tablet 00:00: mouth [place] 00 every 6 Medical (six) Branch hours as needed for Pain (scale 4-6) or Pain (scale 7-10). metaxalone 202-0 Yes [id number] 800mg Take 1 [facility] (SKELAXIN) 8-29 tablet by ity of 800 mg 00:00: mouth in [place] tablet 00 the Medical morning Branch and 1 tablet at noon and 1 tablet in the evening. ondansetron 2021-0 Yes [id number] 4mg Take 1 [facility] 4 mg 8-29 tablet by ity of disintegrat 00:00: mouth [place] ing tablet 00 every 8 Medica l (eight) Branch hours as needed for Nausea and Vomiting (N/V). acetaminoph 2021-0 Yes [id number] 650mg Take 1 [facility] en (TYLENOL 8-29 tablet by ity of ARTHRITIS 00:00: mouth [place] PAIN) 650 00 every 8 Medical mg CR (eight) Branch tablet hours as needed for Pain. ketorolac 2021-0 Yes [id number] 10mg Take 1 [facility] 10 mg 8-29 tablet by ity of tablet 00:00: mouth [place] 00 every 6 Medical (six) Branch hours as needed for Pain (scale 4-6) or Pain (scale 7-10). metaxalone 2-0 Yes [id number] 800mg Take 1 [facility] (SKELAXIN) 8-29 tablet by ity of 800 mg 00:00: mouth in [place] tablet 00 the Medical morning Branch and 1 tablet at noon and 1 tablet in the evening. ondansetron 2022-0 Yes [id number] 4mg Take 1 [facility] 4 mg 8-29 tablet by ity of disintegrat 00:00: mouth [place] ing tablet 00 every 8 Medica l (eight) Branch hours as needed for Nausea and Vomiting (N/V). acetaminoph 2022-0 Yes [id number] 650mg Take 1 [facility] en (TYLENOL 8-29 tablet by ity of ARTHRITIS 00:00: mouth [place] PAIN) 650 00 every 8 Medical mg CR (eight) Branch tablet hours as needed for Pain. ketorolac 2021-0 Yes [id number] 10mg Take 1 [facility] 10 mg 8-29 tablet by ity of tablet 00:00: mouth [place] 00 every 6 Medical (six) Branch hours as needed for Pain (scale 4-6) or Pain (scale 7-10). metaxalone 2021-0 Yes [id number] 800mg Take 1 [facility] (SKELAXIN) 8-29 tablet by ity of 800 mg 00:00: mouth in [place] tablet 00 the Medical morning Branch and 1 tablet at noon and 1 tablet in the evening. acetaminoph 2021-0 Yes [id number] 650mg Take 1 [facility] en (TYLENOL 8-29 tablet by ity of ARTHRITIS 00:00: mouth [place] PAIN) 650 00 every 8 Medical mg CR (eight) Branch tablet hours as needed for Pain. acetaminoph 2021-0 Yes [id number] 650mg Take 1 [facility] en (TYLENOL 8-29 tablet by ity of ARTHRITIS 00:00: mouth [place] PAIN) 650 00 every 8 Medical mg CR (eight) Branch tablet hours as needed for Pain. acetaminoph 0 Yes [id number] 650mg Take 1 [facility] en (TYLENOL 8-29 tablet by ity of ARTHRITIS 00:00: mouth [place] PAIN) 650 00 every 8 Medical mg CR (eight) Branch tablet hours as needed for Pain. acetaminoph 2021-0 Yes [id number] 650mg Take 1 [facility] en (TYLENOL 8-29 tablet by ity of ARTHRITIS 00:00: mouth [place] PAIN) 650 00 every 8 Medical mg CR (eight) Branch tablet hours as needed for Pain. acetaminoph 0 Yes [id number] 650mg Take 1 [facility] en (TYLENOL 8-29 tablet by ity of ARTHRITIS 00:00: mouth [place] PAIN) 650 00 every 8 Medical mg CR (eight) Branch tablet hours as needed for Pain. acetaminoph 2021-0 Yes [id number] 650mg Take 1 [facility] en (TYLENOL 8-29 tablet by ity of ARTHRITIS 00:00: mouth [place] PAIN) 650 00 every 8 Medical mg CR (eight) Branch tablet hours as needed for Pain. acetaminoph 2021-0 Yes [id number] 650mg Take 1 [facility] en (TYLENOL 8-29 tablet by ity of ARTHRITIS 00:00: mouth [place] PAIN) 650 00 every 8 Medical mg CR (eight) Branch tablet hours as needed for Pain. acetaminoph 2021-0 Yes [id number] 650mg Take 1 [facility] en (TYLENOL 8-29 tablet by ity of ARTHRITIS 00:00: mouth [place] PAIN) 650 00 every 8 Medical mg CR (eight) Branch tablet hours as needed for Pain. acetaminoph 0 Yes [id number] 650mg Take 1 [facility] en (TYLENOL 8-29 tablet by ity of ARTHRITIS 00:00: mouth [place] PAIN) 650 00 every 8 Medical mg CR (eight) Branch tablet hours as needed for Pain. acetaminoph 0 Yes [id number] 650mg Take 1 [facility] en (TYLENOL 8-29 tablet by ity of ARTHRITIS 00:00: mouth [place] PAIN) 650 00 every 8 Medical mg CR (eight) Branch tablet hours as needed for Pain. acetaminoph 0 Yes [id number] 650mg Take 1 [facility] en (TYLENOL 8-29 tablet by ity of ARTHRITIS 00:00: mouth [place] PAIN) 650 00 every 8 Medical mg CR (eight) Branch tablet hours as needed for Pain. acetaminoph 0 Yes [id number] 650mg Take 1 [facility] en (TYLENOL 8-29 tablet by ity of ARTHRITIS 00:00: mouth [place] PAIN) 650 00 every 8 Medical mg CR (eight) Branch tablet hours as needed for Pain. acetaminoph 0 Yes [id number] 650mg Take 1 [facility] en (TYLENOL 8-29 tablet by ity of ARTHRITIS 00:00: mouth [place] PAIN) 650 00 every 8 Medical mg CR (eight) Branch tablet hours as needed for Pain. acetaminoph 0 Yes [id number] 650mg Take 1 [facility] en (TYLENOL 8-29 tablet by ity of ARTHRITIS 00:00: mouth [place] PAIN) 650 00 every 8 Medical mg CR (eight) Branch tablet hours as needed for Pain. acetaminoph 0 Yes [id number] 650mg Take 1 [facility] en (TYLENOL 8-29 tablet by ity of ARTHRITIS 00:00: mouth [place] PAIN) 650 00 every 8 Medical mg CR (eight) Branch tablet hours as needed for Pain. acetaminoph 2021-0 Yes [id number] 650mg Take 1 [facility] en (TYLENOL 8-29 tablet by ity of ARTHRITIS 00:00: mouth [place] PAIN) 650 00 every 8 Medical mg CR (eight) Branch tablet hours as needed for Pain. acetaminoph 2021-0 Yes [id number] 650mg Take 1 [facility] en (TYLENOL 8-29 tablet by ity of ARTHRITIS 00:00: mouth [place] PAIN) 650 00 every 8 Medical mg CR (eight) Branch tablet hours as needed for Pain. acetaminoph 2- No [id number] 650mg Take 1 [facility] en (TYLENOL 8-29 11-26 tablet by it y of ARTHRITIS 00:00: 00:00 mouth [place] PAIN) 650 00 :00 every 8 Medical mg CR (eight) Branch tablet hours as needed for Pain. ondansetron 2021-0 2- No [id number] 4mg Take 1 [facility] 4 mg 8-29 10-18 tablet by ity of disintegrat 00:00: 00:00 [place] tablet 00 :00 every 8 Medica l (eight) Branch hours as needed for Nausea and Vomiting (N/V). ketorolac 2021-0 2021- No [id number] 10mg Take 1 [facility] 10 mg 8-29 10-18 tablet by ity of tablet 00:00: 00:00 mouth [place] 00 :00 every 6 Medical (six) Branch hours as needed for Pain (scale 4-6) or Pain (scale 7-10). metaxalone 2021-0 2021- No [id number] 800mg Take 1 [facility] (SKELAXIN) 8-29 10-18 tablet by ity of 800 mg 00:00: 00:00 mouth in [place] tablet 00 :00 the Medical morning Branch and 1 tablet at noon and 1 tablet in the evening. ondansetron 2021-0 2021- No [id number] 4mg Take 1 [facility] 4 mg 8-29 10-18 tablet by ity of disintegrat 00:00: 00:00 [place] tablet 00 :00 every 8 Medica l (eight) Branch hours as needed for Nausea and Vomiting (N/V). ketorolac 2-0 2- No [id number] 10mg Take 1 [facility] 10 mg 8-29 10-18 tablet by ity of tablet 00:00: 00:00 mouth [place] 00 :00 every 6 Medical (six) Branch hours as needed for Pain (scale 4-6) or Pain (scale 7-10). metaxalone 2022-0 2022- No [id number] 800mg Take 1 [facility] (SKELAXIN) 8-29 10-18 tablet by ity of 800 mg 00:00: 00:00 mouth in [place] tablet 00 :00 the Medical morning Branch and 1 tablet at noon and 1 tablet in the evening. ondansetron 2022-0 2022- No [id number] 4mg Take 1 [facility] 4 mg 8-29 10-18 tablet by ity of disintegrat 00:00: 00:00 mouth [place] tablet 00 :00 every 8 Medica l (eight) Branch hours as needed for Nausea and Vomiting (N/V). ketorolac 2022-0 2022- No [id number] 10mg Take 1 [facility] 10 mg 8-29 10-18 tablet by ity of tablet 00:00: 00:00 mouth [place] 00 :00 every 6 Medical (six) Branch hours as needed for Pain (scale 4-6) or Pain (scale 7-10). metaxalone 2021-0 2021- No [id number] 800mg Take 1 [facility] (SKELAXIN) 8-29 10-18 tablet by ity of 800 mg 00:00: 00:00 mouth in [place] tablet 00 :00 the Medical morning Branch and 1 tablet at noon and 1 tablet in the evening. ondansetron 2022-0 2021- No [id number] 4mg Take 1 [facility] 4 mg 8-29 10-18 tablet by ity of disintegrat 00:00: 00:00 mouth [place] tablet 00 :00 every 8 Medica l (eight) Branch hours as needed for Nausea and Vomiting (N/V). ketorolac 2022-0 2022- No [id number] 10mg Take 1 [facility] 10 mg 8-29 10-18 tablet by ity of tablet 00:00: 00:00 mouth [place] 00 :00 every 6 Medical (six) Branch hours as needed for Pain (scale 4-6) or Pain (scale 7-10). metaxalone 2022-0 2022- No [id number] 800mg Take 1 [facility] (SKELAXIN) 8-29 10-18 [...] mouth. ity of supp. no.8 15:08: 00:00 [place] (TRAZAMINE 46 :00 Medical ORAL) Branch diphenhydrA 0 Yes 25mg Take 25 mg [facility] MINE 25 mg 12-12 by mouth ity o f capsule 13:03: every 6 [place] 04 (six) Medical hours as Branch needed for Allergies. carbamazepi 0 Yes Take by Uni vers ne 8 mouth. ity of (TEGRETOL 13:03: [place] ORAL) 04 Medical Branch citalopram Yes Take by [facility] ers hydrobromid 8 mouth. ity of [...] hydrobromid 8-02 mouth. ity of e 13:03: [place] (CITALOPRAM 04 Medical ORAL) Branch ALBUTEROL Yes Univers INHALE 8 ity of 13:03: Medical Branch diphenhydrA Yes 25mg Take 25 mg [facility] MINE 25 mg 02 by mouth ity o f capsule 13:03: every 6 [place] [address] (six) Medical hours as Branch needed for Allergies. carbamazepi Yes Take by [facility] vers ne 8-02 mouth. ity of (TEGRETOL 13:03: [place] ORAL) Medical Branch citalopram Yes Take by [facility] ers hydrobromid 8-02 mouth. ity of e 13:03: [place] (CITALOPRAM 04 Medical ORAL) Branch ALBUTEROL Yes [facility] INHALE 12-12 ity of 13:03: [place] [address] Medical Branch diphenhydrA Yes 25mg Take 25 mg [facility] MINE 25 mg 12-12 by mouth ity o f capsule 13:03: every 6 [place] [address] (six) Medical hours as Branch needed for Allergies. carbamazepi Yes Take by [facility] vers ne 8-02 mouth. ity of (TEGRETOL 13:03: [place] ORAL) Medical Branch citalopram Yes Take by [facility] ers hydrobromid 8-02 mouth. ity of e 13:03: [place] (CITALOPRAM 04 Medical ORAL) Branch ALBUTEROL Yes [facility] INHALE 12-12 ity of 13:03: [place] [address] Medical Branch diphenhydrA Yes 25mg Take 25 mg [facility] MINE 25 mg 02 by mouth ity o f capsule 13:03: every 6 [place] [address] (six) Medical hours as Branch needed for Allergies. carbamazepi Yes Take by [facility] vers ne 8-02 mouth. ity of (TEGRETOL 13:03: [place] ORAL) 04 Medical Branch citalopram Yes Take by [facility] ers hydrobromid 8-02 mouth. ity of e 13:03: [place] (CITALOPRAM 04 Medical ORAL) Branch ALBUTEROL Yes Univers INHALE 8 ity of 13:03: [place] [address] Medical Branch diphenhydrA Yes 25mg Take 25 mg [facility] MINE 25 mg 8-02 by mouth ity o f capsule 13:03: every 6 [place] [address] (six) Medical hours as Branch needed for Allergies. carbamazepi Yes Take by [facility] vers ne 8-02 mouth. ity of (TEGRETOL 13:03: [place] ORAL) Medical Branch citalopram Yes Take by [facility] ers hydrobromid 8- mouth. ity of e 13:03: [place] (CITALOPRAM 04 Medical ORAL) Branch ALBUTEROL 0 Yes [facility] INHALE 8 ity of 13:03: Medical Branch diphenhydrA Yes 25mg Take 25 mg [facility] MINE 25 mg 12-12 by mouth ity o f capsule 13:03: every 6 [place] [address] (six) Medical hours as Branch needed for Allergies. carbamazepi Yes Take by [facility] vers ne 8- mouth. ity of (TEGRETOL 13:03: [place] ORAL) Medical Branch citalopram Yes Take by [facility] ers hydrobromid 8- mouth. ity of e 13:03: [place] (CITALOPRAM 04 Medical ORAL) Branch ALBUTEROL Yes [facility] INHALE 12-12 ity of 13:03: [place] [address] Medical Branch diphenhydrA Yes 25mg Take 25 mg [facility] MINE 25 mg 12-12 by mouth ity o f capsule 13:03: every 6 [place] [address] (six) Medical hours as Branch needed for Allergies. carbamazepi Yes Take by [facility] vers ne 8- mouth. ity of (TEGRETOL 13:03: [place] ORAL) Medical Branch citalopram Yes Take by [facility] ers hydrobromid 8-02 mouth. ity of e 13:03: [place] (CITALOPRAM 04 Medical ORAL) Branch ALBUTEROL 0 Yes [facility] INHALE 8 ity of 13:03: [place] [address] Medical Branch diphenhydrA Yes 25mg Take 25 mg [facility] MINE 25 mg 802 by mouth ity o f capsule 13:03: every 6 [place] [address] (six) Medical hours as Branch needed for Allergies. carbamazepi 0 Yes Take by [facility] vers ne 8-02 mouth. ity of (TEGRETOL 13:03: [place] ORAL) Medical Branch citalopram Yes Take by [facility] ers hydrobromid 8-02 mouth. ity of e 13:03: [place] (CITALOPRAM 04 Medical ORAL) Branch ALBUTEROL 0 Yes [facility] INHALE 8-02 ity of 13:03: [address] Branch diphenhydrA 0 Yes 25mg Take 25 mg [facility] MINE 25 mg 802 by mouth ity o f capsule 13:03: every 6 [place] [address] (six) Medical hours as Branch needed for Allergies. carbamazepi 0 Yes Take by [facility] vers ne 8-02 mouth. ity of (TEGRETOL 13:03: [place] ORAL) Medical Branch citalopram Yes Take by [facility] ers hydrobromid 8-02 mouth. ity of e 13:03: [place] (CITALOPRAM 04 Medical ORAL) [place] ALBUTEROL Yes [facility] INHALE 8- ity of 13:03: [address] diphenhydrA Yes 25mg Take 25 mg [facility] MINE 25 mg 02 by mouth ity o f capsule 13:03: every 6 [place] [address] (six) Medical hours as Branch needed for Allergies. carbamazepi 0 Yes Take by [facility] vers ne 8-02 mouth. ity of (TEGRETOL 13:03: [place] ORAL) [address] [place] [id number] citalopram Yes Take by [facility] ers hydrobromid 8-02 mouth. ity of e 13:03: [place] (CITALOPRAM 04 Medical ORAL) Branch ALBUTEROL Yes [facility] INHALE 8-02 ity of 13:03: [address] Branch ALBUTEROL Yes [facility] INHALE 8-02 ity of 13:03: [address] Branch ALBUTEROL Yes [facility] INHALE 8-02 ity of 13:03: [address] ALBUTEROL 0 Yes [facility] INHALE 8-02 ity of 13:03: [address] ALBUTEROL 0 Yes [facility] INHALE 8-02 ity of 13:03: [place] [facility] ALBUTEROL Yes Univers INHALE 8-02 ity of 13:03: [address] ALBUTEROL Yes [facility] INHALE 8-02 ity of 13:03: [place] [facility] ALBUTEROL Yes Univers INHALE 8-02 ity of 13:03: [place] [facility] ALBUTEROL Yes Univers INHALE 8-02 ity of 13:03: [place] [facility] ALBUTEROL Yes Univers INHALE 8-02 ity of 13:03: [place] [facility] ALBUTEROL Yes [facility] INHALE 8-02 ity of 13:03: [place] [facility] ALBUTEROL Yes Univers INHALE 8-02 ity of 13:03: [place] [facility] ALBUTEROL Yes [facility] INHALE 8-02 ity of 13:03: [place] [facility] ALBUTEROL Yes [facility] INHALE 8-02 ity of 13:03: [place] [facility] ALBUTEROL Yes [facility] INHALE 8-02 ity of 13:03: [place] [facility] traZODone Yes [id number] 50mg Take 1 U nivers 50 mg 8-02 tablet by ity of tablet 00:00: mouth at [place] 00 bedtime. Medical Branch SERTraline Yes [id number] 50mg Take 1 [facility] (ZOLOFT) 50 8-02 tablet by ity of mg tablet 00:00: mouth [place] 00 the Medical morning. Branch traZODone Yes [id number] 50mg Take 1 U nivers 50 mg 8-02 tablet by ity of tablet 00:00: mouth at [place] 00 bedtime. Medical Branch SERTraline Yes [id number] 50mg Take 1 [facility] (ZOLOFT) 50 8-02 tablet by ity of mg tablet 00:00: mouth in [place] 00 the Medical morning. Branch traZODone 0 Yes [id number] 50mg Take 1 U nivers 50 mg 8-02 tablet by ity of tablet 00:00: mouth at [place] 00 bedtime. Medical Branch SERTraline Yes [id number] 50mg Take 1 [facility] (ZOLOFT) 50 8-02 tablet by ity of mg tablet 00:00: mouth [place] 00 the Medical morning. Branch traZODone 2021-0 Yes [id number] 50mg Take 1 U nivers 50 mg 8-02 tablet by ity of tablet 00:00: mouth at [place] 00 bedtime. Medical Branch SERTraline 2021-0 Yes 50mg Take 1 [facility] (ZOLOFT) 50 8-02 tablet by ity of mg tablet 00:00: mouth [place] 00 the Medical morning. Branch traZODone 2021-0 Yes [id number] 50mg Take 1 U nivers 50 mg 8-02 tablet by ity of tablet 00:00: mouth at [place] 00 bedtime. Medical Branch SERTraline 2021-0 Yes 50mg Take 1 [facility] (ZOLOFT) 50 8-02 tablet by ity of mg tablet 00:00: mouth [place] 00 the Medical morning. Branch traZODone 2021-0 Yes [id number] 50mg Take 1 U nivers 50 mg 8-02 tablet by ity of tablet 00:00: mouth at [place] 00 bedtime. Medical Branch SERTraline 2021-0 Yes 50mg Take 1 [facility] (ZOLOFT) 50 8-02 tablet by ity of mg tablet 00:00: mouth [place] 00 the Medical morning. Branch traZODone 2021-0 Yes [id number] 50mg Take 1 U nivers 50 mg 8-02 tablet by ity of tablet 00:00: mouth at [place] 00 bedtime. Medical Branch SERTraline 2021-0 Yes [id number] 50mg Take 1 [facility] (ZOLOFT) 50 8-02 tablet by ity of mg tablet 00:00: mouth [place] 00 the Medical morning. Branch traZODone 2021-0 Yes [id number] 50mg Take 1 U nivers 50 mg 8-02 tablet by ity of tablet 00:00: mouth at [place] 00 bedtime. Medical Branch SERTraline 2021-0 Yes [id number] 50mg Take 1 [facility] (ZOLOFT) 50 8-02 tablet by ity of mg tablet 00:00: mouth [place] 00 the Medical morning. Branch traZODone 2021-0 Yes [id number] 50mg Take 1 U nivers 50 mg 8-02 tablet by ity of tablet 00:00: mouth at [place] 00 bedtime. Medical Branch SERTraline Yes [id number] 50mg Take 1 [facility] (ZOLOFT) 50 8-02 tablet by ity of mg tablet 00:00: mouth in [place] 00 the Medical morning. Branch traZODone Yes [id number] 50mg Take 1 U nivers 50 mg 8-02 tablet by ity of tablet 00:00: mouth at [place] 00 bedtime. Medical Branch SERTraline Yes [id number] 50mg Take 1 [facility] (ZOLOFT) 50 8-02 tablet by ity of mg tablet 00:00: mouth in [place] 00 the Medical morning. Branch traZODone Yes [id number] 50mg Take 1 U nivers 50 mg 8-02 tablet by ity of tablet 00:00: mouth at [place] 00 bedtime. Medical Branch SERTraline Yes [id number] 50mg Take 1 [facility] (ZOLOFT) 50 8-02 tablet by ity of mg tablet 00:00: mouth in [facility] 00 the Medical morning. Branch traZODone 2021- No [id number] 50mg Take 1 [facility] 50 mg 8-02 10-18 tablet by ity of tablet 00:00: 00:00 mouth at [place] 00 :00 bedtime. Medical Branch SERTraline 2021- No [id number] 50mg Take 1 [facility] (ZOLOFT) 50 8-02 10-18 tablet by it y of mg tablet 00:00: 00:00 mouth in [place] 00 :00 the Medical morning. Branch traZODone 2021- No [id number] 50mg Take 1 [facility] 50 mg 8-02 10-18 tablet by [facility]y of tablet 00:00: 00:00 mouth at [place] 00 :00 bedtime. Medical Branch SERTraline 2021- No [id number] 50mg Take 1 [facility] (ZOLOFT) 50 8-02 10-18 tablet by it y of mg tablet 00:00: 00:00 mouth in [place] 00 :00 the Medical morning. Branch traZODone 2021- No [id number] 50mg Take 1 [facility] 50 mg 8-02 10-18 tablet by ity of tablet 00:00: 00:00 mouth at [place] 00 :00 bedtime. Medical Branch SERTraline 2021- No [id number] 50mg Take 1 [facility] (ZOLOFT) 50 8- 10-18 tablet by it y of mg tablet 00:00: 00:00 mouth in [place] 00 :00 the Medical morning. Branch traZODone 2021- No [id number] 50mg Take 1 [facility] 50 mg 8- 10-18 tablet by ity of tablet 00:00: 00:00 mouth at [place] 00 :00 bedtime. Medical Branch SERTraline 2021- No [id number] 50mg Take 1 [facility] (ZOLOFT) 50 8- 10-18 tablet by it y of mg tablet 00:00: 00:00 mouth in [place] 00 :00 the Medical morning. Branch sulfamethox 2021- No [id number] 1{tbl} Take 1 [facility] azole-trime - 08-06 tablet by it y of thoprim 00:00: 04:59 mouth in [place] (BACTRIM 00 :00 the Medical DS) 800-160 morning Branc h mg per and 1 tablet tablet in the evening. Do all this for 3 days. ibuprofen 2021-0 Yes [id number] 600mg Take 1 [facility] 600 mg 7-15 tablet by ity of tablet 00:00: mouth [place] 00 every 6 Medical (six) Branch hours as needed for Pain (scale 4-6). ibuprofen 2021-0 Yes [id number] 600mg Take 1 [facility] 600 mg 7-15 tablet by ity of tablet 00:00: mouth [place] 00 every 6 Medical (six) Branch hours as needed for Pain (scale 4-6). ibuprofen 2021-0 Yes [id number] 600mg Take 1 [facility] 600 mg 7-15 tablet by ity of tablet 00:00: mouth [place] 00 every 6 Medical (six) Branch hours as needed for Pain (scale 4-6). ibuprofen 2021-0 Yes [id number] 600mg Take 1 [facility] 600 mg 7-15 tablet by ity of tablet 00:00: mouth [place] 00 every 6 Medical (six) Branch hours as needed for Pain (scale 4-6). ibuprofen 2021-0 Yes [id number] 600mg Take 1 [facility] 600 mg 7-15 tablet by ity of tablet 00:00: mouth [place] 00 every 6 Medical (six) Branch hours as needed for Pain (scale 4-6). ibuprofen 2022-0 Yes [id number] 600mg Take 1 [facility] 600 mg 7-15 tablet by ity of tablet 00:00: mouth [place] 00 every 6 Medical (six) Branch hours as needed for Pain (scale 4-6). ibuprofen 2022-0 Yes [id number] 600mg Take 1 [facility] 600 mg 7-15 tablet by ity of tablet 00:00: mouth [place] 00 every 6 Medical (six) Branch hours as needed for Pain (scale 4-6). ibuprofen 2022-0 Yes [id number] 600mg Take 1 [facility] 600 mg 7-15 tablet by ity of tablet 00:00: mouth [place] 00 every 6 Medical (six) Branch hours as needed for Pain (scale 4-6). ibuprofen 2022-0 Yes [id number] 600mg Take 1 [facility] 600 mg 7-15 tablet by ity of tablet 00:00: mouth [place] 00 every 6 Medical (six) Branch hours as needed for Pain (scale 4-6). ibuprofen 2022-0 Yes [id number] 600mg Take 1 [facility] 600 mg 7-15 tablet by ity of tablet 00:00: mouth [place] 00 every 6 Medical (six) Branch hours as needed for Pain (scale 4-6). ibuprofen 2022-0 Yes [id number] 600mg Take 1 [facility] 600 mg 7-15 tablet by ity of tablet 00:00: mouth [place] 00 every 6 Medical (six) Branch hours as needed for Pain (scale 4-6). ibuprofen 2022-0 2022- No [id number] 600mg Take 1 [facility] 600 mg 7-15 10-18 tablet by ity of tablet 00:00: 00:00 mouth [place] 00 :00 every 6 Medical (six) Branch hours as needed for Pain (scale 4-6). ibuprofen 2022-0 2022- No [id number] 600mg Take 1 [facility] 600 mg 7-15 10-18 tablet by ity of tablet 00:00: 00:00 mouth [place] 00 :00 every 6 Medical (six) Branch hours as needed for Pain (scale 4-6). ibuprofen 2022-0 2022- No [id number] 600mg Take 1 [facility] 600 mg 7-15 10-18 tablet by ity of tablet 00:00: 00:00 mouth [place] 00 :00 every 6 Medical (six) Branch hours as needed for Pain (scale 4-6). ibuprofen 2021- No [id number] 600mg Take 1 [facility] 600 mg 7-15 [...] Indication s: acute pain bromphenira 2021-0 Yes [id number] 5mL Take 5 mL [facility] mine-pseudo 7-09 by mouth 4 it y of ephedrine-D 00:00: (four) [place] (BROMFED 00 times Medical DM) 2-30-10 daily as Bran ch mg/5 mL needed for syrup Congestion /Allergies or Cough. naproxen 2021-0 Yes [id number] 500mg Take 1 [facility] 500 mg 7-09 tablet by ity of tablet 00:00: mouth [place] 00 every 8 Medical (eight) Branch hours as needed for Pain (scale 4-6). cyclobenzap 2021-0 Yes [id number] 10mg Take 1 [facility] rine 10 mg 7-09 tablet by ity of tablet 00:00: mouth at [place] 00 bedtime as Medical needed for Branch Muscle Spasms. bromphenira 2021-0 Yes [id number] 5mL Take 5 mL [facility] mine-pseudo 7-09 by mouth 4 it y of ephedrine-D 00:00: (four) [place] (BROMFED 00 times Medical DM) 2-30-10 daily as Bran ch mg/5 mL needed for syrup Congestion /Allergies or Cough. naproxen 2021-0 Yes [id number] 500mg Take 1 [facility] 500 mg 7-09 tablet by ity of tablet 00:00: mouth [place] 00 every 8 Medical (eight) Branch hours as needed for Pain (scale 4-6). cyclobenzap 2021-0 Yes [id number] 10mg Take 1 [facility] rine 10 mg 7-09 tablet by ity of tablet 00:00: mouth at [place] 00 bedtime as Medical needed for Branch Muscle Spasms. bromphenira 2021-0 Yes [id number] 5mL Take 5 mL [facility] mine-pseudo 7-09 by mouth 4 it y of ephedrine-D 00:00: (four) [place] (BROMFED 00 times Medical DM) 2-30-10 daily as Bran ch mg/5 mL needed for syrup Congestion /Allergies or Cough. naproxen 2021-0 Yes [id number] 500mg Take 1 [facility] 500 mg 7-09 tablet by ity of tablet 00:00: mouth [place] 00 every 8 Medical (eight) Branch hours as needed for Pain (scale 4-6). cyclobenzap 2021-0 Yes [id number] 10mg Take 1 [facility] rine 10 mg 7-09 tablet by ity of tablet 00:00: mouth at [place] 00 bedtime as Medical needed for Branch Muscle Spasms. bromphenira 2021-0 Yes [id number] 5mL Take 5 mL [facility] mine-pseudo 7-09 by mouth 4 it y of ephedrine-D 00:00: (four) [place] (BROMFED 00 times Medical DM) 2-30-10 daily as Bran ch mg/5 mL needed for syrup Congestion /Allergies or Cough. naproxen 2021-0 Yes [id number] 500mg Take 1 [facility] 500 mg 7-09 tablet by ity of tablet 00:00: mouth [place] 00 every 8 Medical (eight) Branch hours as needed for Pain (scale 4-6). cyclobenzap 2021-0 Yes [id number] 10mg Take 1 [facility] rine 10 mg 7-09 tablet by ity of tablet 00:00: mouth at [place] 00 bedtime as Medical needed for Branch Muscle Spasms. bromphenira 2-0 Yes [id number] 5mL Take 5 mL [facility] mine-pseudo 7-09 by mouth 4 it y of ephedrine-D 00:00: (four) [place] (BROMFED 00 times Medical DM) 2-30-10 daily as Bran ch mg/5 mL needed for syrup Congestion /Allergies or Cough. naproxen 2022-0 Yes [id number] 500mg Take 1 [facility] 500 mg 7-09 tablet by ity of tablet 00:00: mouth [place] 00 every 8 Medical (eight) Branch hours as needed for Pain (scale 4-6). cyclobenzap 2021-0 Yes [id number] 10mg Take 1 [facility] rine 10 mg 7-09 tablet by ity of tablet 00:00: mouth at [place] 00 bedtime as Medical needed for Branch Muscle Spasms. bromphenira 2021-0 Yes [id number] 5mL Take 5 mL [facility] mine-pseudo 7-09 by mouth 4 it y of ephedrine-D 00:00: (four) [place] (BROMFED 00 times Medical DM) 2-30-10 daily as Bran ch mg/5 mL needed for syrup Congestion /Allergies or Cough. naproxen 2021-0 Yes [id number] 500mg Take 1 [facility] 500 mg 7-09 tablet by ity of tablet 00:00: mouth [place] 00 every 8 Medical (eight) Branch hours as needed for Pain (scale 4-6). cyclobenzap 2021-0 Yes [id number] 10mg Take 1 [facility] rine 10 mg 7-09 tablet by ity of tablet 00:00: mouth at [place] 00 bedtime as Medical needed for Branch Muscle Spasms. bromphenira 2021-0 Yes [id number] 5mL Take 5 mL [facility] mine-pseudo 7-09 by mouth 4 it y of ephedrine-D 00:00: (four) [place] (BROMFED 00 times Medical DM) 2-30-10 daily as Bran ch mg/5 mL needed for syrup Congestion /Allergies or Cough. naproxen 2-0 Yes [id number] 500mg Take 1 [facility] 500 mg 7-09 tablet by ity of tablet 00:00: mouth [place] 00 every 8 Medical (eight) Branch hours as needed for Pain (scale 4-6). cyclobenzap 2022-0 Yes [id number] 10mg Take 1 [facility] rine 10 mg 7-09 tablet by ity of tablet 00:00: mouth at [place] 00 bedtime as Medical needed for Branch Muscle Spasms. bromphenira 2022-0 Yes [id number] 5mL Take 5 mL [facility] mine-pseudo 7-09 by mouth 4 it y of ephedrine-D 00:00: (four) [place] (BROMFED 00 times Medical DM) 2-30-10 daily as Bran ch mg/5 mL needed for syrup Congestion /Allergies or Cough. naproxen 2022-0 Yes [id number] 500mg Take 1 [facility] 500 mg 7-09 tablet by ity of tablet 00:00: mouth [place] 00 every 8 Medical (eight) Branch hours as needed for Pain (scale 4-6). cyclobenzap 2021-0 Yes [id number] 10mg Take 1 [facility] rine 10 mg 7-09 tablet by ity of tablet 00:00: mouth at [place] 00 bedtime as Medical needed for Branch Muscle Spasms. bromphenira 202-0 Yes [id number] 5mL Take 5 mL [facility] mine-pseudo 7-09 by mouth 4 it y of ephedrine-D 00:00: (four) [place] (BROMFED 00 times Medical DM) 2-30-10 daily as Bran ch mg/5 mL needed for syrup Congestion /Allergies or Cough. naproxen 2021-0 Yes [id number] 500mg Take 1 [facility] 500 mg 7-09 tablet by ity of tablet 00:00: mouth [place] 00 every 8 Medical (eight) Branch hours as needed for Pain (scale 4-6). cyclobenzap 2021-0 Yes [id number] 10mg Take 1 [facility] rine 10 mg 7-09 tablet by ity of tablet 00:00: mouth at [place] 00 bedtime as Medical needed for Branch Muscle Spasms. bromphenira 2021-0 Yes [id number] 5mL Take 5 mL [facility] mine-pseudo 7-09 by mouth 4 it y of ephedrine-D 00:00: (four) [place] (BROMFED 00 times Medical DM) 2-30-10 daily as Bran ch mg/5 mL needed for syrup Congestion /Allergies or Cough. naproxen 2-0 Yes [id number] 500mg Take 1 [facility] n[facility] 500 mg 7-09 tablet by ity of tablet 00:00: mouth [place] 00 every 8 Medical (eight) Branch hours as needed for Pain (scale 4-6). cyclobenzap 2022-0 Yes [id number] 10mg Take 1 [facility] rine 10 mg 7-09 tablet by ity of tablet 00:00: mouth at [place] 00 bedtime as Medical needed for Branch Muscle Spasms. bromphenira 2022-0 Yes [id number] 5mL Take 5 mL [facility] mine-pseudo 7-09 by mouth 4 it y of ephedrine-D 00:00: (four) [place] (BROMFED 00 times Medical DM) 2-30-10 daily as Bran ch mg/5 mL needed for syrup Congestion /Allergies or Cough. naproxen 2021-0 Yes [id number] 500mg Take 1 [facility] 500 mg 7-09 tablet by ity of tablet 00:00: mouth [place] 00 every 8 Medical (eight) Branch hours as needed for Pain (scale 4-6). cyclobenzap 2021-0 Yes [id number] 10mg Take 1 [facility] rine 10 mg 7-09 tablet by ity of tablet 00:00: mouth at [place] 00 bedtime as Medical needed for Branch Muscle Spasms. bromphenira 2021-0 Yes [id number] 5mL Take 5 mL [facility] mine-pseudo 7-09 by mouth 4 it y of ephedrine-D 00:00: (four) [place] (BROMFED 00 times Medical DM) 2-30-10 daily as Bran ch mg/5 mL needed for syrup Congestion /Allergies or Cough. bromphenira 2021-0 Yes [id number] 5mL Take 5 mL [facility] mine-pseudo 7-09 by mouth 4 it y of ephedrine-D 00:00: (four) [place] (BROMFED 00 times Medical DM) 2-30-10 daily as Bran ch mg/5 mL needed for syrup Congestion /Allergies or Cough. bromphenira 2021-0 Yes [id number] 5mL Take 5 mL [facility] mine-pseudo 7-09 by mouth 4 it y of ephedrine-D 00:00: (four) [place] (BROMFED 00 times Medical DM) 2-30-10 daily as Bran ch mg/5 mL needed for syrup Congestion /Allergies or Cough. bromphenira 2021-0 Yes [id number] 5mL Take 5 mL [facility] mine-pseudo 7-09 by mouth 4 it y of ephedrine-D 00:00: (four) [place] (BROMFED 00 times Medical DM) 2-30-10 daily as Bran ch mg/5 mL needed for syrup Congestion /Allergies or Cough. bromphenira 2021-0 Yes [id number] 5mL Take 5 mL [facility] mine-pseudo 7-09 by mouth 4 it y of ephedrine-D 00:00: (four) [place] (BROMFED 00 times Medical DM) 2-30-10 daily as Bran ch mg/5 mL needed for syrup Congestion /Allergies or Cough. bromphenira 2-0 Yes [id number] 5mL Take 5 mL [facility] mine-pseudo 7-09 by mouth 4 it y of ephedrine-D 00:00: (four) [place] (BROMFED 00 times Medical DM) 2-30-10 daily as Bran ch mg/5 mL needed for syrup Congestion /Allergies or Cough. bromphenira 2022-0 Yes [id number] 5mL Take 5 mL [facility] mine-pseudo 7-09 by mouth 4 it y of ephedrine-D 00:00: (four) [place] (BROMFED 00 times Medical DM) 2-30-10 daily as Bran ch mg/5 mL needed for syrup Congestion /Allergies or Cough. bromphenira 2021-0 Yes [id number] 5mL Take 5 mL [facility] mine-pseudo 7-09 by mouth 4 it y of ephedrine-D 00:00: (four) [place] (BROMFED 00 times Medical DM) 2-30-10 daily as Bran ch mg/5 mL needed for syrup Congestion /Allergies or Cough. bromphenira 2-0 Yes [id number] 5mL Take 5 mL [facility] mine-pseudo 7-09 by mouth 4 it y of ephedrine-D 00:00: (four) [place] (BROMFED 00 times Medical DM) 2-30-10 daily as Bran ch mg/5 mL needed for syrup Congestion /Allergies or Cough. bromphenira 2022-0 Yes [id number] 5mL Take 5 mL [facility] mine-pseudo 7-09 by mouth 4 it y of ephedrine-D 00:00: (four) [place] (BROMFED 00 times Medical DM) 2-30-10 daily as Bran ch mg/5 mL needed for syrup Congestion /Allergies or Cough. bromphenira 2022-0 Yes [id number] 5mL Take 5 mL [facility] mine-pseudo 7-09 by mouth 4 it y of ephedrine-D 00:00: (four) [place] (BROMFED 00 times Medical DM) 2-30-10 daily as Bran ch mg/5 mL needed for syrup Congestion /Allergies or Cough. bromphenira 2021-0 Yes [id number] 5mL Take 5 mL [facility] mine-pseudo 7-09 by mouth 4 it y of ephedrine-D 00:00: (four) [place] (BROMFED 00 times Medical DM) 2-30-10 daily as Bran ch mg/5 mL needed for syrup Congestion /Allergies or Cough. bromphenira 2021-0 Yes [id number] 5mL Take 5 mL [facility] mine-pseudo 7-09 by mouth 4 it y of ephedrine-D 00:00: (four) [place] (BROMFED 00 times Medical DM) 2-30-10 daily as Bran ch mg/5 mL needed for syrup Congestion /Allergies or Cough. bromphenira 2021-0 Yes [id number] 5mL Take 5 mL [facility] mine-pseudo 7-09 by mouth 4 it y of ephedrine-D 00:00: (four) [place] (BROMFED 00 times Medical DM) 2-30-10 daily as Bran ch mg/5 mL needed for syrup Congestion /Allergies or Cough. bromphenira 2021- No [id number] 5mL Take 5 mL [facility] mine-pseudo 7-09 11-12 by mouth 4 i ty of ephedrine-D 00:00: 00:00 (four) [place] (BROMFED 00 :00 times Medical DM) 2-30-10 daily as Bran ch mg/5 mL needed for syrup Congestion /Allergies or Cough. naproxen 2021- No [id number] 500mg Take 1 [facility] 500 mg 7-09 10-18 tablet by ity of tablet 00:00: 00:00 mouth [place] 00 :00 every 8 Medical (eight) Branch hours as needed for Pain (scale 4-6). cyclobenzap 2021-2021- No [id number] 10mg Take 1 [facility] rine 10 mg 7-09 10-18 tablet by ity of tablet 00:00: 00:00 mouth at [place] 00 :00 bedtime as Medical needed for Branch Muscle Spasms. naproxen 2021-2021- No [id number] 500mg Take 1 [facility] 500 mg 7-09 10-18 tablet by ity of tablet 00:00: 00:00 mouth [place] 00 :00 every 8 Medical (eight) Branch hours as needed for Pain (scale 4-6). cyclobenzap 2021- No [id number] 10mg Take 1 [facility] rine 10 mg 7- 10-18 tablet by ity of tablet 00:00: 00:00 mouth at [place] 00 :00 bedtime as Medical needed for Branch Muscle Spasms. naproxen 2021- No [id number] 500mg Take 1 [facility] 500 mg 7- 10-18 tablet by ity of tablet 00:00: 00:00 mouth [place] 00 :00 every 8 Medical (eight) Branch hours as needed for Pain (scale 4-6). cyclobenzap 2021- No [id number] 10mg Take 1 [facility] rine 10 mg 7- 10-18 tablet by ity of tablet 00:00: 00:00 mouth at [place] 00 :00 bedtime as Medical needed for Branch Muscle Spasms. naproxen 2021- No [id number] 500mg Take 1 [facility] 500 mg 7- 10-18 tablet by ity of tablet 00:00: 00:00 mouth [place] 00 :00 every 8 Medical (eight) Branch hours as needed for Pain (scale 4-6). cyclobenzap 2021- No [id number] 10mg Take 1 [facility] rine 10 mg 7- 10-18 tablet by ity of tablet 00:00: 00:00 mouth at [place] 00 :00 bedtime as Medical needed for Branch Muscle Spasms. ibuprofen Yes [id number] 605mg Take 30.25 [facility] 100 mg/5 mL 6-15 mL by ity of oral 00:00: mouth [place] suspension 00 every 6 Medica l (six) Branch hours as needed for Pain (scale 4-6) or Temp > 38.5 C. ibuprofen Yes [id number] 605mg Take 30.25 [facility] 100 mg/5 mL 6-15 mL by ity of oral 00:00: mouth [place] suspension 00 every 6 Medica l (six) Branch hours as needed for Pain (scale 4-6) or Temp > 38.5 C. ibuprofen Yes [id number] 605mg Take 30.25 [facility] 100 mg/5 mL 6-15 mL by ity of oral 00:00: mouth [place] suspension 00 every 6 Medica l (six) Branch hours as needed for Pain (scale 4-6) or Temp > 38.5 C. ibuprofen 2022-0 Yes [id number] 605mg Take 30.25 [facility] 100 mg/5 mL 6-15 mL by ity of oral 00:00: mouth [place] suspension 00 every 6 Medica l (six) Branch hours as needed for Pain (scale 4-6) or Temp > 38.5 C. ibuprofen 202-0 Yes [id number] 605mg Take 30.25 [facility] 100 mg/5 mL 6-15 mL by ity of oral 00:00: mouth [place] suspension 00 every 6 Medica l (six) Branch hours as needed for Pain (scale 4-6) or Temp > 38.5 C. ibuprofen 2021-0 Yes [id number] 605mg Take 30.25 [facility] 100 mg/5 mL 6-15 mL by ity of oral 00:00: mouth [place] suspension 00 every 6 Medica l (six) Branch hours as needed for Pain (scale 4-6) or Temp > 38.5 C. ibuprofen 2021-0 Yes [id number] 605mg Take 30.25 [facility] 100 mg/5 mL 6-15 mL by ity of oral 00:00: mouth [place] suspension 00 every 6 Medica l (six) Branch hours as needed for Pain (scale 4-6) or Temp > 38.5 C. ibuprofen 2021-0 Yes [id number] 605mg Take 30.25 [facility] 100 mg/5 mL 6-15 mL by ity of oral 00:00: mouth [place] suspension 00 every 6 Medica l (six) Branch hours as needed for Pain (scale 4-6) or Temp > 38.5 C. ibuprofen 2022-0 Yes [id number] 605mg Take 30.25 [facility] 100 mg/5 mL 6-15 mL by ity of oral 00:00: mouth [place] suspension 00 every 6 Medica l (six) Branch hours as needed for Pain (scale 4-6) or Temp > 38.5 C. ibuprofen 2022-0 Yes [id number] 605mg Take 30.25 [facility] 100 mg/5 mL 6-15 mL by ity of oral 00:00: mouth [place] suspension 00 every 6 Medica l (six) Branch hours as needed for Pain (scale 4-6) or Temp > 38.5 C. ibuprofen 0 Yes [id number] 605mg Take 30.25 [facility] 100 mg/5 mL 6-15 mL by ity of oral 00:00: mouth [place] suspension 00 every 6 Medica l (six) Branch hours as needed for Pain (scale 4-6) or Temp > 38.5 C. ibuprofen 0 2021- No [id number] 605mg Take 30.25 [facility] 100 mg/5 mL 6-15 10-18 mL by ity of oral 00:00: 00:00 mouth [place] suspension 00 :00 every 6 Medica l (six) Branch hours as needed for Pain (scale 4-6) or Temp > 38.5 C. ibuprofen 2021-0 2021- No [id number] 605mg Take 30.25 [facility] 100 mg/5 mL 6-15 10-18 mL by ity of oral 00:00: 00:00 mouth [place] suspension 00 :00 every 6 Medica l (six) Branch hours as needed for Pain (scale 4-6) or Temp > 38.5 C. ibuprofen 0 2021- No [id number] 605mg Take 30.25 [facility] 100 mg/5 mL 6-15 10-18 mL by ity of oral 00:00: 00:00 mouth [place] suspension 00 :00 every 6 Medica l (six) Branch hours as needed for Pain (scale 4-6) or Temp > 38.5 C. ibuprofen 2021- No [id number] 605mg Take 30.25 [facility] 100 mg/5 mL 6-15 10-18 mL by ity of oral 00:00: 00:00 mouth [place] suspension 00 :00 every 6 Medica l (six) Branch hours as needed for Pain (scale 4-6) or Temp > 38.5 C. acetaminoph 2021- No [id number] 608mg Take 19 mL [facility] en 160 [...] 60 mg 5-27 ity of capsule 00:00: [place] 00 Medical Branch DULoxetine 2022-0 Yes [facility] 60 mg 5-27 ity of capsule 00:00: [place] 00 Medical Branch DULoxetine 2-0 Yes [facility] 60 mg 5-27 ity of capsule 00:00: [place] 00 Medical Branch DULoxetine 2022-0 Yes [facility] 60 mg 5-27 ity of capsule 00:00: [place] [address] Medical Branch DULoxetine 2022-0 Yes [facility] 60 mg 5-27 ity of capsule 00:00: [place] [address] Medical Branch DULoxetine 2-0 Yes [facility] 60 mg 5-27 ity of capsule 00:00: [place] [address] Medical Branch DULoxetine 2-0 Yes [facility] 60 mg 5-27 ity of capsule 00:00: [place] [address] Medical Branch DULoxetine 2-0 Yes [facility] 60 mg 5-27 ity of capsule 00:00: [place] [address] Medical Branch DULoxetine 2-0 Yes [facility] 60 mg 5-27 ity of capsule 00:00: [place] [address] Medical Branch DULoxetine 2021-0 2- No [facility] 60 mg 5-27 10-18 ity of capsule 00:00: 00:00 [place] 00 :00 Medical Branch DULoxetine 2-0 2022- No [facility] s 60 mg 5-27 10-18 ity of capsule 00:00: 00:00 [place] 00 :00 Medical Branch DULoxetine 2-0 2022- No [facility] s 60 mg 5-27 10-18 ity of capsule 00:00: 00:00 [place] 00 :00 Medical Branch DULoxetine 2022-0 2022- No [facility]iver s 60 mg 5-27 10-18 ity of capsule 00:00: 00:00 [place] 00 :00 Medical Branch traZODone 2-0 2022- No [facility] 50 mg 5-27 08-02 ity of tablet 00:00: 00:00 [place] 00 :00 Medical Branch mometasone 2021-0 Yes [id number] 1{spray Use 1 [facility] 50 5-19 } [place] in ity of mcg/actuati 00:00: each [place] on nasal 00 nostril 2 Medica l spray (two) Branch times daily. mometasone 2021-0 Yes [id number] 1{spray Use 1 [facility] 50 5-19 } [place] in ity of mcg/actuati 00:00: each [place] on nasal 00 nostril 2 Medica l spray (two) Branch times daily. mometasone 2021-0 Yes [id number] 1{spray Use 1 [facility] 50 5-19 } [place] in ity of mcg/actuati 00:00: each [place] on nasal 00 nostril 2 Medica l spray (two) Branch times daily. mometasone 2021-0 Yes [id number] 1{spray Use 1 [facility] 50 5-19 } [place] in ity of mcg/actuati 00:00: each [place] on nasal 00 nostril 2 Medica l spray (two) Branch times daily. mometasone 2021-0 Yes [id number] 1{spray Use 1 [facility] 50 5-19 } [place] in ity of mcg/actuati 00:00: each [place] on nasal 00 nostril 2 Medica l spray (two) Branch times daily. mometasone 2021-0 Yes [id number] 1{spray Use 1 [facility] 50 5-19 } [place] in ity of mcg/actuati 00:00: each [place] on nasal 00 nostril 2 Medica l spray (two) Branch times daily. mometasone 2021-0 Yes [id number] 1{spray Use 1 [facility] 50 5-19 } [place] in ity of mcg/actuati 00:00: each [place] on nasal 00 nostril 2 Medica l spray (two) Branch times daily. mometasone 2021-0 Yes [id number] 1{spray Use 1 [facility] 50 5-19 } [place] in ity of mcg/actuati 00:00: each [place] on nasal 00 nostril 2 Medica l spray (two) Branch times daily. mometasone 2021-0 Yes [id number] 1{spray Use 1 [facility] 50 5-19 } [place] in ity of mcg/actuati 00:00: each [place] on nasal 00 nostril 2 Medica l spray (two) Branch times daily. mometasone 2021-0 Yes [id number] 1{spray Use 1 [facility] 50 5-19 } [place] in ity of mcg/actuati 00:00: each [place] on nasal 00 nostril 2 Medica l spray (two) Branch times daily. mometasone 2021-0 Yes [id number] 1{spray Use 1 [facility] 50 5-19 } [place] in ity of mcg/actuati 00:00: each [place] on nasal 00 nostril 2 Medica l spray (two) Branch times daily. mometasone 2021- No [id number] 1{spray Use 1 [facility] 50 5-19 10-18 } [place] in ity of mcg/actuati 00:00: 00:00 each [place] on nasal 00 :00 nostril 2 Medica l spray (two) Branch times daily. mometasone 2021- No [id number] 1{spray Use 1 [facility] 50 5-19 10-18 } [place] in ity of mcg/actuati 00:00: 00:00 each [place] on nasal 00 :00 nostril 2 Medica l spray (two) Branch times daily. mometasone 2021- No [id number] 1{spray Use 1 [facility] 50 5-19 10-18 } [place] in ity of mcg/actuati 00:00: 00:00 each [place] on nasal 00 :00 nostril 2 Medica l spray (two) Branch times daily. mometasone 2021- No [id number] 1{spray Use 1 [facility] 50 5-19 10-18 } [place] in ity of mcg/actuati 00:00: 00:00 each [place] on nasal 00 :00 nostril 2 Medica l spray (two) Branch times daily. cetirizine Yes [id number] 10mg Take 1 U nivers (ZYRTEC) 10 5-16 tablet by ity of mg tablet 00:00: mouth [place] 00 daily. Medical Branch cetirizine Yes [id number] 10mg Take 1 U nivers (ZYRTEC) 10 5-16 tablet by ity of mg tablet 00:00: mouth [place] 00 daily. Medical Branch cetirizine Yes [id number] 10mg Take 1 U nivers (ZYRTEC) 10 5-16 tablet by ity of mg tablet 00:00: mouth [place] 00 daily. Medical Branch cetirizine Yes [id number] 10mg Take 1 U nivers (ZYRTEC) 10 5-16 tablet by ity of mg tablet 00:00: mouth [place] 00 daily. Medical Branch cetirizine Yes [id number] 10mg Take 1 U nivers (ZYRTEC) 10 5-16 tablet by ity of mg tablet 00:00: mouth [place] 00 daily. [facility] Branch cetirizine Yes [id number] 10mg Take 1 U nivers (ZYRTEC) 10 5-16 tablet by ity of mg tablet 00:00: mouth [place] 00 daily. [facility] Branch cetirizine Yes [id number] 10mg Take 1 U nivers (ZYRTEC) 10 5-16 tablet by ity of mg tablet 00:00: mouth [place] 00 daily. [facility] Branch cetirizine Yes [id number] 10mg Take 1 U nivers (ZYRTEC) 10 5-16 tablet by ity of mg tablet 00:00: mouth [place] 00 daily. [facility] Branch cetirizine Yes [id number] 10mg Take 1 U nivers (ZYRTEC) 10 5-16 tablet by ity of mg tablet 00:00: mouth [place] 00 daily. [facility] Branch cetirizine Yes [id number] 10mg Take 1 U nivers (ZYRTEC) 10 5-16 tablet by ity of mg tablet 00:00: mouth [place] 00 daily. [facility] cetirizine Yes [id number] 10mg Take 1 U nivers (ZYRTEC) 10 5-16 tablet by ity of mg tablet 00:00: mouth [place] 00 daily. [facility] cetirizine 2021- No [id number] 10mg Take 1 [facility] (ZYRTEC) 10 5-16 10-18 tablet by it y of mg tablet 00:00: 00:00 mouth [place] 00 :00 daily. [facility] cetirizine 2021- No [id number] 10mg Take 1 [facility] (ZYRTEC) 10 5-16 10-18 tablet by it y of mg tablet 00:00: 00:00 mouth [place] 00 :00 daily. [facility] cetirizine 2021- No [id number] 10mg Take 1 [facility] (ZYRTEC) 10 5-16 10-18 tablet by it y of mg tablet 00:00: 00:00 mouth [place] 00 :00 daily. [facility] cetirizine 2021- No [id number] 10mg Take 1 [facility] (ZYRTEC) 10 5-16 10-18 tablet by it y of mg tablet 00:00: 00:00 mouth [place] 00 :00 daily. [facility] DULoxetine 2022-0 Yes [facility] 30 mg 5-09 ity of capsule 00:00: [place] 00 [facility] gabapentin 2022-0 Yes Univers 300 mg 5-09 ity of capsule 00:00: [place] 00 [facility] ondansetron 2022-0 Yes Univer s 4 mg tablet 5-09 ity of 00:00: [place] 00 [facility] DULoxetine 2022-0 Yes [facility] 30 mg 5-09 ity of capsule 00:00: [place] 00 [facility] gabapentin 2022-0 Yes [facility] 300 mg 5-09 ity of capsule 00:00: [place] 00 [facility] ondansetron 2022-0 Yes Univer s 4 mg tablet 5-09 ity of 00:00: [place] 00 [facility] DULoxetine 2022-0 Yes [facility] 30 mg 5-09 ity of capsule 00:00: [place] 00 [facility] gabapentin 2022-0 Yes [facility] 300 mg 5-09 ity of capsule 00:00: [place] 00 [facility] ondansetron 2022-0 Yes Univer s 4 mg tablet 5-09 ity of 00:00: [place] 00 [facility] DULoxetine 2022-0 Yes [facility] 30 mg 5-09 ity of capsule 00:00: [place] 00 [facility] gabapentin 2022-0 Yes [facility] 300 mg 5-09 ity of capsule 00:00: [place] 00 [facility] ondansetron 2022-0 Yes Univer s 4 mg tablet 5-09 ity of 00:00: [place] 00 [facility] DULoxetine 2022-0 Yes [facility] 30 mg 5-09 ity of capsule 00:00: [place] 00 [facility] gabapentin 2022-0 Yes [facility] 300 mg 5-09 ity of capsule 00:00: [place] 00 [facility] ondansetron 2022-0 Yes Univer s 4 mg tablet 5-09 ity of 00:00: [place] 00 [facility] DULoxetine 2022-0 Yes [facility] 30 mg 5-09 ity of capsule 00:00: [place] [address] [facility] gabapentin 2022-0 Yes [facility] 300 mg 5-09 ity of capsule 00:00: [place] 00 [facility] ondansetron 2022-0 Yes Univer s 4 mg tablet 5-09 ity of 00:00: [place] 00 [facility] DULoxetine 2022-0 Yes [facility] 30 mg 5-09 ity of capsule 00:00: [place] 00 [facility] gabapentin 2022-0 Yes [facility] 300 mg 5-09 ity of capsule 00:00: [place] 00 [facility] ondansetron 2022-0 Yes Univer s 4 mg tablet 5-09 ity of 00:00: [place] [address] [facility] DULoxetine 2022-0 Yes [facility] 30 mg 5-09 ity of capsule 00:00: [place] 00 [facility] gabapentin 2022-0 Yes [facility] 300 mg 5-09 ity of capsule 00:00: [place] [address] [facility] ondansetron 2022-0 Yes Univer s 4 mg tablet 5-09 ity of 00:00: [place] [address] [facility] DULoxetine 2022-0 Yes [facility] 30 mg 5-09 ity of capsule 00:00: [place] [address] [facility] gabapentin 2022-0 Yes [facility] 300 mg 5-09 ity of capsule 00:00: [place] [address] [facility] ondansetron 2022-0 Yes Univer s 4 mg tablet 5-09 ity of 00:00: [place] [address] [facility] DULoxetine 2022-0 Yes [facility] 30 mg 5-09 ity of capsule 00:00: [place] [address] [facility] gabapentin 2022-0 Yes [facility] 300 mg 5-09 ity of capsule 00:00: [place] 00 [facility] ondansetron 2022-0 Yes Univer s 4 mg tablet 5-09 ity of 00:00: [place] [address] [facility] DULoxetine 2022-0 Yes [facility] 30 mg 5-09 ity of capsule 00:00: [place] [address] [facility] gabapentin 2022-0 Yes [facility] 300 mg 5-09 ity of capsule 00:00: [place] 00 [facility] ondansetron 2022-0 Yes Univer s 4 mg tablet 5-09 ity of 00:00: [place] [address] [facility] DULoxetine 2022-0 2022- No Univer s 30 mg 5-01 20- ity of capsule 00:00: 00:00 [place] 00 :00 Medical [facility] gabapentin 2022-0 2022- No Univer s 300 mg -02-27 ity of capsule 00:00: 00:00 [place] 00 :00 Medical [facility] ondansetron 2022-0 2022- No Unive rs 4 mg tablet [id number] ity of 00:00: 00:00 [place] 00 :00 Medical Branch DULoxetine 2022-0 2- No Univer s 30 mg 09-18 ity of capsule 00:00: 00:00 [place] 00 :00 [facility] gabapentin 2022-0 2022- No Univer s 300 mg 09-18 ity of capsule 00:00: 00:00 [place] 00 :00 [facility] ondansetron 2022-0 2022- No Unive rs 4 mg tablet 09-18 ity of 00:00: 00:00 [place] 00 :00 [facility] DULoxetine 2022-0 2- No Univer s 30 mg 09-18 ity of capsule 00:00: 00:00 [place] 00 :00 [facility] gabapentin 2022-0 2- No Univer s 300 mg 09-18 ity of capsule 00:00: 00:00 [place] 00 :00 [facility] ondansetron 2022-0 2- No Unive rs 4 mg tablet 09-18 ity of 00:00: 00:00 [place] 00 :00 [facility] DULoxetine 2022-0 2- No Univer s 30 mg 09-18 ity of capsule 00:00: 00:00 [place] 00 :00 [facility] gabapentin 2022-0 2- No Univer s 300 mg 09-18 ity of capsule 00:00: 00:00 [place] 00 :00 [facility] ondansetron 2022-0 2- No Unive rs 4 mg tablet 09-18 ity of 00:00: 00:00 [place] 00 :00 [facility] amLODIPine 2022-0 Yes Univers 5 mg tablet 4-22 ity of 00:00: [place] 00 [facility] amLODIPine 2022-0 Yes 5mg Take 5 mg Un sushant 5 mg tablet 4-22 by mouth. ity of 00:00: [place] 00 [facility] amLODIPine 2022-0 Yes [facility] 5 mg tablet 4-22 ity of 00:00: [place] 00 [facility] amLODIPine 2022-0 Yes 5mg Take 5 mg Un sushant 5 mg tablet 4-22 by mouth. ity of 00:00: [place] 00 [facility] amLODIPine 2022-0 Yes Univers 5 mg tablet 4-22 ity of 00:00: [place] [address] [facility] amLODIPine 2022-0 Yes 5mg Take 5 mg Un sushant 5 mg tablet 4-22 by mouth. ity of 00:00: [place] [facility] amLODIPine 2022-0 Yes [facility] 5 mg tablet 4-22 ity of 00:00: [place] [facility] amLODIPine 2022-0 Yes 5mg Take 5 mg Un sushant 5 mg tablet 4-22 by mouth. ity of 00:00: [place] [facility] amLODIPine 2022-0 Yes [facility] 5 mg tablet 4-22 ity of 00:00: [place] [facility] amLODIPine 2022-0 Yes 5mg Take 5 mg Un sushant 5 mg tablet 4-22 by mouth. ity of 00:00: [place] [facility] amLODIPine 2022-0 Yes Univers 5 mg tablet 4-22 ity of 00:00: [place] [facility] amLODIPine 2022-0 Yes 5mg Take 5 mg Un sushant 5 mg tablet 4-22 by mouth. ity of 00:00: [place] [facility] amLODIPine 2022-0 Yes [facility] 5 mg tablet 4-22 ity of 00:00: [place] [facility] amLODIPine 2022-0 Yes 5mg Take 5 mg Un sushant 5 mg tablet 4-22 by mouth. ity of 00:00: [place] [facility] amLODIPine 2022-0 Yes [facility] 5 mg tablet 4-22 ity of 00:00: [place] [facility] amLODIPine 2022-0 Yes 5mg Take 5 mg Un sushant 5 mg tablet 4-22 by mouth. ity of 00:00: [place] [facility] amLODIPine 2022-0 Yes [facility] 5 mg tablet 4-22 ity of 00:00: [place] [facility] amLODIPine 2022-0 Yes 5mg Take 5 mg Un sushant 5 mg tablet 4-22 by mouth. ity of 00:00: [place] [facility] amLODIPine 2022-0 Yes Univers 5 mg tablet 4-22 ity of 00:00: [place] [facility] amLODIPine 2022-0 Yes 5mg Take 5 mg Un sushant 5 mg tablet 4-22 by mouth. ity of 00:00: [place] [facility] amLODIPine 2022-0 Yes [facility] 5 mg tablet 4-22 ity of 00:00: [place] [facility] amLODIPine 2022-0 Yes 5mg Take 5 mg Un sushant 5 mg tablet 4-22 by mouth. ity of 00:00: [place] 00 [facility] amLODIPine 2022-0 2022- No Univer s 5 mg tablet 09-0118 ity of 00:00: 00:00 [place] 00 :00 [facility] amLODIPine 2022-0 2022- No 5mg Take 5 mg U nivers 5 mg tablet 09-0118 by mouth. it y of 00:00: 00:00 [place] 00 :00 [facility] amLODIPine 2022-0 2022- No Univer s 5 mg tablet 09-0118 ity of 00:00: 00:00 [place] 00 :00 [facility] amLODIPine 2022-0 2022- No 5mg Take 5 mg U nivers 5 mg tablet 09-01 by mouth. it y of 00:00: 00:00 [place] 00 :00 [facility] amLODIPine 2022-0 2022- No Univer s 5 mg tablet 09-01 ity of 00:00: 00:00 [place] 00 :00 [facility] amLODIPine 2022-0 2022- No 5mg Take 5 mg U nivers 5 mg tablet 09-01 by mouth. it y of 00:00: 00:00 [place] 00 :00 [facility] amLODIPine 2022-0 2022- No Univer s 5 mg tablet 09-01 ity of 00:00: 00:00 [place] 00 :00 [facility] amLODIPine 2022-0 2022- No 5mg Take 5 mg U nivers 5 mg tablet 09-0118 by mouth. it y of 00:00: 00:00 [place] 00 :00 [facility] buPROPion 2-0 Yes [...] ity of 24 hr 00:00: [place] tablet [facility] buPROPion 2022- No 150mg Take 150 Un sushant XL 150 mg 4-20 04-21 mg by ity of 24 hr 00:00: 04:59 mouth. [place] tablet 00 :00 [facility] buPROPion 2022- No 150mg Take 150 Un sushant XL 150 mg 4-20 04-21 mg by ity of 24 hr 00:00: 04:59 mouth. [place] tablet 00 :00 [facility] buPROPion 2022- No 150mg Take 150 Un sushant XL 150 mg 4-20 04-21 mg by ity of 24 hr 00:00: 04:59 mouth. [place] tablet 00 :00 [facility] buPROPion 2022- No 150mg Take 150 Un sushant XL 150 mg 4-20 04-21 mg by ity of 24 hr 00:00: 04:59 mouth. [place] tablet 00 :00 Medical [facility] buPROPion 2022- No 150mg Take 150 Un sushant XL 150 mg 4-20 04-21 mg by ity of 24 hr 00:00: 04:59 mouth. [place] tablet 00 :00 [facility] buPROPion 2022- No 150mg Take 150 Un sushant XL 150 mg 4-20 04-21 mg by ity of 24 hr 00:00: 04:59 mouth. [place] tablet 00 :00 [facility] buPROPion 2022- No 150mg Take 150 [...] by ity o f 00:00: mouth 2 [place] 00 (two) Medical times Branch daily. carvediloL 2020-2021- No 25mg Take 1 Univ ers 25 mg 2-30 10-18 tablet by ity of tablet 00:00: 00:00 mouth 2 [place] 00 :00 (two) Medical times Branch daily with meals. losartan 50 2020-05- No 50mg Take 1 Uni vers mg tablet 2-30 10-18 tablet by ity of 00:00: 00:00 mouth 2 [place] 00 :00 (two) Medical times Branch daily. carvediloL 2020-05- No 25mg Take 1 Univ ers 25 mg 2-30 10-18 tablet by ity of tablet 00:00: 00:00 mouth 2 [place] 00 :00 (two) Medical times Branch daily with meals. losartan 50 2020-05- No 50mg Take 1 Uni vers mg tablet 2-30 10-18 tablet by ity of 00:00: 00:00 mouth 2 [place] 00 :00 (two) Medical times Branch daily. carvediloL 2020-05- No 25mg Take 1 Univ ers 25 mg 2-30 10-18 tablet by ity of tablet 00:00: 00:00 mouth 2 [place] 00 :00 (two) Medical times Branch daily with meals. losartan 50 2020-05- No 50mg Take 1 Uni vers mg tablet 2-30 10-18 tablet by ity of 00:00: 00:00 mouth 2 [place] 00 :00 (two) Medical times Branch daily. carvediloL 2020-05- No 25mg Take 1 Univ ers 25 mg 2-30 10-18 tablet by ity of tablet 00:00: 00:00 mouth 2 [place] 00 :00 (two) Medical times Branch daily with meals. losartan 50 2020-05- No 50mg Take 1 Uni vers mg tablet 2-30 10-18 tablet by ity of 00:00: 00:00 mouth 2 [place] 00 :00 (two) Medical times Branch daily. Immunizations Ordered Filled Immunization Date Status Comments [facility] e Immunization Name Name Influenza Virus 2022-02-27 Completed Universit y of Vaccine Quad IM, 00:00:00 [place] Me dical Preserv and ABX Branch Free [...] y of Vaccine Quad .5 mL 00:00:00 [facility] 6+ MO Branch Influenza Virus 2022-02-21 Completed Universit y of Vaccine Quad .5 mL 00:00:00 [facility] 6+ MO Branch Influenza Virus 2022-02-21 Completed Universit y of Vaccine Quad .5 mL 00:00:00 [facility] 6+ MO Branch Influenza Virus 2021-06-11 Completed Universit y of Vaccine 00:00:00 [facility] Influenza Virus 2021-06-11 Completed Universit y of Vaccine 00:00:00 [facility] Influenza Virus 2021-06-11 Completed Universit y of Vaccine 00:00:00 [facility] Influenza Virus 2021-06-11 Completed Universit y of Vaccine 00:00:00 [facility] Influenza Virus 2021-06-11 Completed Universit y of Vaccine 00:00:00 [facility] Influenza Virus 2021-06-11 Completed Universit y of Vaccine 00:00:00 [facility] Influenza Virus 2021-06-11 Completed Universit y of Vaccine 00:00:00 [facility] Influenza Virus 2021-06-11 Completed Universit y of Vaccine 00:00:00 [facility] Influenza Virus 2021-06-11 Completed Universit y of Vaccine 00:00:00 [facility] Influenza Virus 2021-06-11 Completed Universit y of Vaccine 00:00:00 [facility] Influenza Virus 2021-06-11 Completed Universit y of Vaccine 00:00:00 [facility] Influenza Virus 2021-06-11 Completed Universit y of Vaccine 00:00:00 [facility] Influenza Virus 2021-06-11 Completed Universit y of Vaccine 00:00:00 [facility] Influenza Virus 2021-06-11 Completed Universit y of Vaccine 00:00:00 [facility] Influenza Virus 2021-06-11 Completed Universit y of Vaccine 00:00:00 [facility] Influenza Virus 2021-06-11 Completed Universit y of Vaccine 00:00:00 [facility] Influenza Virus 2021-06-11 Completed Universit y of Vaccine 00:00:00 [facility] Influenza Virus 2021-06-11 Completed Universit y of Vaccine 00:00:00 [facility] Influenza Virus 2021-06-11 Completed Universit y of Vaccine 00:00:00 [facility] Influenza Virus 2021-06-11 Completed Universit y of Vaccine 00:00:00 [facility] Influenza Virus 2021-06-11 Completed Universit y of Vaccine 00:00:00 [facility] Influenza Virus 2021-06-11 Completed Universit y of Vaccine 00:00:00 [facility] Influenza Virus 2021-06-11 Completed Universit y of Vaccine 00:00:00 [facility] Influenza Virus 2021-06-11 Completed Universit y of Vaccine 00:00:00 [facility] Influenza Virus 2021-06-11 Completed Universit y of Vaccine 00:00:00 [facility] Influenza Virus 2021-06-11 Completed Universit y of Vaccine 00:00:00 [facility] Influenza Virus 2021-06-11 Completed Universit y of Vaccine 00:00:00 [facility] Influenza Virus 2021-06-11 Completed Universit y of Vaccine 00:00:00 [facility] Influenza Virus 2021-06-11 Completed Universit y of Vaccine 00:00:00 [facility] Influenza Virus 2021-06-11 Completed Universit y of Vaccine 00:00:00 [facility] Influenza Virus 2021-06-11 Completed Universit y of Vaccine 00:00:00 [facility] Influenza Virus 2021-06-11 Completed Universit y of Vaccine 00:00:00 [facility] Influenza Virus 2021-06-11 Completed Universit y of Vaccine 00:00:00 [facility] Influenza Virus 2021-06-11 Completed Universit y of Vaccine 00:00:00 [facility] Influenza Virus 2021-06-11 Completed Universit y of Vaccine 00:00:00 [facility] Influenza Virus 2021-06-11 Completed Universit y of Vaccine 00:00:00 [facility] Influenza Virus 2021-06-11 Completed Universit y of Vaccine 00:00:00 [facility] Influenza Virus 2021-06-11 Completed Universit y of Vaccine 00:00:00 [facility] Influenza Virus 2021-06-11 Completed Universit y of Vaccine 00:00:00 [facility] Influenza Virus 2021-06-11 Completed Universit y of Vaccine 00:00:00 [facility] Influenza Virus 2021-06-11 Completed Universit y of Vaccine 00:00:00 [facility] Influenza Virus 2021-06-11 Completed Universit y of Vaccine 00:00:00 [facility] Influenza Virus 2021-06-11 Completed Universit y of Vaccine 00:00:00 [facility] Influenza Virus 2021-06-11 Completed Universit y of Vaccine 00:00:00 [facility] Influenza Virus 2021-06-11 Completed Universit y of Vaccine 00:00:00 [facility] Influenza Virus 2021-06-11 Completed Universit y of Vaccine 00:00:00 [facility] Influenza Virus 2021-06-11 Completed Universit y of Vaccine 00:00:00 [facility] Influenza Virus 2021-06-11 Completed Universit y of Vaccine 00:00:00 [facility] Influenza Virus 2021-06-11 Completed Universit y of Vaccine Quad .5 mL 00:00:00 [facility] 6+ MO Branch Influenza Virus 2021-06-11 Completed Universit y of Vaccine 00:00:00 [facility] Influenza Virus 2021-06-11 Completed Universit y of Vaccine Quad .5 mL 00:00:00 [facility] 6+ MO Branch Influenza Virus 2021-06-11 Completed Universit y of Vaccine 00:00:00 [facility] Influenza Virus 2021-06-11 Completed Universit y of Vaccine Quad .5 mL 00:00:00 [facility] 6+ [facility] Influenza Virus 2021-06-11 Completed Universit y of Vaccine 00:00:00 [facility] Influenza Virus 2021-06-11 Completed Universit y of Vaccine Quad .5 mL 00:00:00 [facility] 6+ [facility] Branch Influenza Virus 2021-06-11 Completed Universit y of Vaccine 00:00:00 [facility] Influenza Virus 2021-06-11 Completed Universit y of Vaccine Quad .5 mL 00:00:00 [facility] 6+ MO Branch Influenza Virus 2021-06-11 Completed Universit y of Vaccine 00:00:00 [facility] Influenza Virus 2021-06-11 Completed Universit y of Vaccine Quad .5 mL 00:00:00 [place] [facility] 6[facility] MO [facility] Influenza Virus 2021-06-11 Completed Universit y of Vaccine 00:00:00 [facility] Influenza Virus 2021-06-11 Completed Universit y of Vaccine Quad .5 mL 00:00:00 [place] [facility] 6[facility] MO [facility] Influenza Virus 2021-06-11 Completed Universit y of Vaccine 00:00:00 [facility] Influenza Virus 2021-06-11 Completed Universit y of Vaccine Quad .5 mL 00:00:00 [facility] 6+ [facility] Branch Influenza Virus 2021-06-11 Completed Universit y of Vaccine 00:00:00 [facility] Influenza Virus 2021-06-11 Completed Universit y of Vaccine Quad .5 mL 00:00:00 [facility] 6+ [facility] Branch Influenza Virus 2021-06-11 Completed Universit y of Vaccine 00:00:00 [facility] Influenza Virus 2021-06-11 Completed Universit y of Vaccine Quad .5 mL 00:00:00 [facility] 6+ [facility] Influenza Virus 2021-06-11 Completed Universit y of Vaccine 00:00:00 [facility] Influenza Virus 2021-06-11 Completed Universit y of Vaccine Quad .5 mL 00:00:00 [facility] 6+ [facility] Influenza Virus 2020-05-19 Completed Universit y of Vaccine 00:00:00 [facility] Influenza Virus 2020-05-19 Completed Universit y of Vaccine 00:00:00 [facility] Influenza Virus 2020-05-19 Completed Universit y of Vaccine 00:00:00 [facility] Influenza Virus 2020-05-19 Completed Universit y of Vaccine 00:00:00 [facility] Influenza Virus 2020-05-19 Completed Universit y of Vaccine 00:00:00 [facility] Influenza Virus 2020-05-19 Completed Universit y of Vaccine 00:00:00 [facility] Influenza Virus 2020-05-19 Completed Universit y of Vaccine 00:00:00 [facility] Influenza Virus 2020-05-19 Completed Universit y of Vaccine 00:00:00 [facility] Influenza Virus 2020-05-19 Completed Universit y of Vaccine 00:00:00 [facility] Influenza Virus 2020-05-19 Completed Universit y of Vaccine 00:00:00 [facility] Influenza Virus 2020-05-19 Completed Universit y of Vaccine 00:00:00 [facility] Influenza Virus 2020-05-19 Completed Universit y of Vaccine 00:00:00 [facility] Influenza Virus 2020-05-19 Completed Universit y of Vaccine 00:00:00 [facility] Influenza Virus 2020-05-19 Completed Universit y of Vaccine 00:00:00 [facility] Influenza Virus 2020-05-19 Completed Universit y of Vaccine 00:00:00 [facility] Influenza Virus 2020-05-19 Completed Universit y of Vaccine 00:00:00 [facility] Influenza Virus 2020-05-19 Completed Universit y of Vaccine 00:00:00 [facility] Influenza Virus 2020-05-19 Completed Universit y of Vaccine 00:00:00 [facility] Influenza Virus 2020-05-19 Completed Universit y of Vaccine 00:00:00 [facility] Influenza Virus 2020-05-19 Completed Universit y of Vaccine 00:00:00 [facility] Influenza Virus 2020-05-19 Completed Universit y of Vaccine 00:00:00 [facility] Influenza Virus 2020-05-19 Completed Universit y of Vaccine 00:00:00 [facility] Influenza Virus 2020-05-19 Completed Universit y of Vaccine 00:00:00 [facility] Influenza Virus 2020-05-19 Completed Universit y of Vaccine 00:00:00 [facility] Influenza Virus 2020-05-19 Completed Universit y of Vaccine 00:00:00 [facility] Influenza Virus 2020-05-19 Completed Universit y of Vaccine 00:00:00 [facility] Influenza Virus 2020-05-19 Completed Universit y of Vaccine 00:00:00 [facility] Influenza Virus 2020-05-19 Completed Universit y of Vaccine 00:00:00 [facility] Influenza Virus 2020-05-19 Completed Universit y of Vaccine 00:00:00 [facility] Influenza Virus 2020-05-19 Completed Universit y of Vaccine 00:00:00 [facility] Influenza Virus 2020-05-19 Completed Universit y of Vaccine 00:00:00 [facility] Influenza Virus 2020-05-19 Completed Universit y of Vaccine 00:00:00 [facility] Influenza Virus 2020-05-19 Completed Universit y of Vaccine 00:00:00 [facility] Influenza Virus 2020-05-19 Completed Universit y of Vaccine 00:00:00 [place] [facility] Influenza Virus 2020-05-19 Completed Universit y of Vaccine 00:00:00 [facility] Influenza Virus 2020-05-19 Completed Universit y of Vaccine 00:00:00 [facility] Influenza Virus 2020-05-19 Completed Universit y of Vaccine 00:00:00 [facility] Influenza Virus 2020-05-19 Completed Universit y of Vaccine 00:00:00 [facility] Influenza Virus 2020-05-19 Completed Universit y of Vaccine 00:00:00 [facility] Influenza Virus 2020-05-19 Completed Universit y of Vaccine 00:00:00 [facility] Influenza Virus 2020-05-19 Completed Universit y of Vaccine 00:00:00 [facility] Influenza Virus 2020-05-19 Completed Universit y of Vaccine 00:00:00 [facility] Influenza Virus 2020-05-19 Completed Universit y of Vaccine 00:00:00 [facility] Influenza Virus 2020-05-19 Completed Universit y of Vaccine 00:00:00 [facility] Influenza Virus 2020-05-19 Completed Universit y of Vaccine 00:00:00 [facility] Influenza Virus 2020-05-19 Completed Universit y of Vaccine 00:00:00 [facility] Influenza Virus 2020-05-19 Completed Universit y of Vaccine 00:00:00 [facility] Influenza Virus 2020-05-19 Completed Universit y of Vaccine 00:00:00 [facility] Influenza Virus 2020-05-19 Completed Universit y of Vaccine 00:00:00 [facility] Influenza Virus 2020-05-19 Completed Universit y of Vaccine 00:00:00 [facility] Influenza Virus 2020-05-19 Completed Universit y of Vaccine 00:00:00 [facility] Influenza Virus 2020-05-19 Completed Universit y of Vaccine 00:00:00 [facility] Influenza Virus 2020-05-19 Completed Universit y of Vaccine 00:00:00 [facility] Influenza Virus 2020-05-19 Completed Universit y of Vaccine 00:00:00 [facility] Influenza Virus 2020-05-19 Completed Universit y of Vaccine 00:00:00 [facility] Influenza Virus 2020-05-19 Completed Universit y of Vaccine 00:00:00 [facility] Influenza Virus 2020-05-19 Completed Universit y of Vaccine 00:00:00 [facility] Influenza Virus 2020-05-19 Completed Universit y of Vaccine 00:00:00 [facility] Influenza Virus 2020-05-16 Completed [facility]it y of Vaccine Recomb Quad 00:00:00 [facility] IM, Preserv and ABX Branc h Free [...] (ADACEL) 2019-05-21 Completed University of VACCINE 00:00:00 [facility] TDAP (ADACEL) 2019-05-21 Completed University of VACCINE 00:00:00 [facility] TDAP (ADACEL) 2019-05-21 Completed University of VACCINE 00:00:00 [facility] TDAP (ADACEL) 2019-05-21 Completed University of VACCINE 00:00:00 [facility] TDAP (ADACEL) 2019-05-21 Completed University of VACCINE 00:00:00 [facility] TDAP (ADACEL) 2019-05-21 Completed University of VACCINE 00:00:00 [facility] TDAP (ADACEL) 2019-05-21 Completed University of VACCINE 00:00:00 [facility] TDAP (ADACEL) 2019-05-21 Completed University of VACCINE 00:00:00 [facility] TDAP (ADACEL) 2019-05-21 Completed University of VACCINE 00:00:00 [facility] TDAP (ADACEL) 2019-05-21 Completed University of VACCINE 00:00:00 [facility] TDAP (ADACEL) 2019-05-21 Completed University of VACCINE 00:00:00 [facility] TDAP (ADACEL) 2019-05-21 Completed University of VACCINE 00:00:00 [facility] TDAP (ADACEL) 2019-05-21 Completed [facility] of VACCINE 00:00:00 [facility] TDAP (ADACEL) 2019-05-21 Completed [facility] of VACCINE 00:00:00 [facility] TDAP (ADACEL) 2019-05-21 Completed [facility] VACCINE 00:00:00 [facility] TDAP (ADACEL) 2019-05-21 Completed [facility] of VACCINE 00:00:00 [facility] TDAP (ADACEL) 2019-05-21 Completed [facility] of VACCINE 00:00:00 [facility] TDAP (ADACEL) 2019-05-21 Completed [facility] of VACCINE 00:00:00 [facility] TDAP (ADACEL) 2019-05-21 Completed [facility] of VACCINE 00:00:00 [facility] TDAP (ADACEL) 2019-05-21 Completed [facility] of VACCINE 00:00:00 [facility] TDAP (ADACEL) 2019-05-21 Completed [facility] of VACCINE 00:00:00 [facility] TDAP (ADACEL) 2019-05-21 Completed [facility] of VACCINE 00:00:00 [facility] TDAP (ADACEL) 2019-05-21 Completed [facility] of VACCINE 00:00:00 [facility] TDAP (ADACEL) 2019-05-21 Completed [facility] of VACCINE 00:00:00 [facility] TDAP (ADACEL) 2019-05-21 Completed [facility] of VACCINE 00:00:00 [facility] TDAP (ADACEL) 2019-05-21 Completed [facility] of VACCINE 00:00:00 [facility] TDAP (ADACEL) 2019-05-21 Completed University of VACCINE 00:00:00 [facility] TDAP (ADACEL) 2019-05-21 Completed University of VACCINE 00:00:00 [facility] TDAP (ADACEL) 2019-05-21 Completed [facility] of VACCINE 00:00:00 [facility] TDAP (ADACEL) 2019-05-21 Completed [facility] of VACCINE 00:00:00 [facility] TDAP (ADACEL) 2019-05-21 Completed [facility] of VACCINE 00:00:00 [facility] TDAP (ADACEL) 2019-05-21 Completed [facility] of VACCINE 00:00:00 [facility] TDAP (ADACEL) 2019-05-21 Completed [facility] of VACCINE 00:00:00 [facility] TDAP (ADACEL) 2019-05-21 Completed [facility] of VACCINE 00:00:00 [facility] TDAP (ADACEL) 2019-05-21 Completed [facility] of VACCINE 00:00:00 [facility] TDAP (ADACEL) 2019-05-21 Completed [facility] of VACCINE 00:00:00 [facility] TDAP (ADACEL) 2019-05-21 Completed [facility] of VACCINE 00:00:00 [facility] TDAP (ADACEL) 2019-05-21 Completed [facility] of VACCINE 00:00:00 [facility] TDAP (ADACEL) 2019-05-21 Completed [facility] of VACCINE 00:00:00 [facility] TDAP (ADACEL) 2019-05-21 Completed [facility] of VACCINE 00:00:00 [facility] TDAP (ADACEL) 2019-05-21 Completed [facility] of VACCINE 00:00:00 [facility] TDAP (ADACEL) 2019-05-21 Completed [facility] of VACCINE 00:00:00 [facility] TDAP (ADACEL) 2019-05-21 Completed [facility] of VACCINE 00:00:00 [facility] TDAP (ADACEL) 2019-05-21 Completed [facility] of VACCINE 00:00:00 [facility] TDAP (ADACEL) 2019-05-21 Completed [facility] of VACCINE 00:00:00 [facility] TDAP (ADACEL) 2019-05-21 Completed [facility] of VACCINE 00:00:00 [facility] TDAP (ADACEL) 2019-05-21 Completed [facility] of VACCINE 00:00:00 [facility] TDAP (ADACEL) 2019-05-21 Completed [facility] of VACCINE 00:00:00 [facility] TDAP (ADACEL) 2019-05-21 Completed [facility] of VACCINE 00:00:00 [facility] TDAP (ADACEL) 2019-05-21 Completed [facility] of VACCINE 00:00:00 [facility] TDAP (ADACEL) 2019-05-21 Completed [facility] of VACCINE 00:00:00 [facility] TDAP (ADACEL) 2019-05-21 Completed [facility] of VACCINE 00:00:00 [facility] TDAP (ADACEL) 2019-05-21 Completed [facility] of VACCINE 00:00:00 [facility] TDAP (ADACEL) 2019-05-21 Completed [facility] of VACCINE 00:00:00 [facility] TDAP (ADACEL) 2019-05-21 Completed [facility] of VACCINE 00:00:00 [facility] TDAP (ADACEL) 2019-05-21 Completed [facility] of VACCINE 00:00:00 [facility] TDAP (ADACEL) 2019-05-21 Completed [facility] of VACCINE 00:00:00 [facility] TDAP (ADACEL) 2019-05-21 Completed [facility] of VACCINE 00:00:00 [facility] Influenza Virus 2019-02-06 Completed Universit [...] y of Vaccine Quad .5 mL 00:00:00 [facility] Influenza Virus 2019-02-06 Completed [facility] of Vaccine Quad .5 mL 00:00:00 [facility] Influenza Virus 2019-02-06 Completed [facility] of Vaccine Quad .5 mL 00:00:00 [facility] Influenza Virus 2019-02-06 Completed [facility] of Vaccine Quad .5 mL 00:00:00 [facility] Influenza Virus 2019-02-06 Completed [facility] of Vaccine Quad .5 mL 00:00:00 [facility] Influenza Virus 2019-02-06 Completed [facility] of Vaccine Quad .5 mL 00:00:00 [facility] Influenza Virus 2019-02-06 Completed [facility] y of Vaccine Quad .5 mL 00:00:00 [facility] Influenza Virus [...] y of Vaccine Quad .5 mL 00:00:00 [facility] Influenza Virus 2019-02-06 Completed [facility] Vaccine Quad .5 mL 00:00:00 [facility] Influenza Virus 2019-02-06 Completed [facility]it y of Vaccine Quad .5 mL 00:00:00 [facility] Influenza Virus 2019-02-06 Completed [facility] y of Vaccine Quad .5 mL 00:00:00 [facility] Influenza Virus 2019-02-06 Completed [facility]it y of Vaccine Quad .5 mL 00:00:00 [facility] Influenza Virus 2019-02-06 Completed [facility] of Vaccine Quad .5 mL 00:00:00 [facility] Influenza Virus 2019-02-06 Completed [facility]it y of Vaccine Quad .5 mL 00:00:00 [facility] Influenza Virus 2019-02-06 Completed [facility] of Vaccine Quad .5 mL 00:00:00 [facility] Influenza Virus 2019-02-06 Completed [facility] Vaccine Quad .5 mL 00:00:00 [facility] Influenza Virus 2019-02-06 Completed [facility] of Vaccine Quad .5 mL 00:00:00 [facility] Influenza Virus 2019-02-06 Completed [facility] y of Vaccine Quad .5 mL 00:00:00 [facility] Influenza Virus 2019-02-06 Completed [facility]it y of Vaccine Quad .5 mL 00:00:00 [facility] Influenza Virus 2019-02-06 Completed [facility] y of Vaccine Quad .5 mL 00:00:00 [facility] Influenza Virus 2019-02-06 Completed [facility] y of Vaccine Quad .5 mL 00:00:00 [facility] Influenza Virus 2019-02-06 Completed [facility] y of Vaccine Quad .5 mL 00:00:00 [facility] Influenza Virus 2019-02-06 Completed [facility] y of Vaccine Quad .5 mL 00:00:00 [facility] Influenza Virus 2019-02-06 Completed [facility]it y of Vaccine Quad .5 mL 00:00:00 [facility] Influenza Virus 2019-02-06 Completed [facility] y of Vaccine Quad .5 mL 00:00:00 [facility] Influenza Virus 2019-02-06 Completed [facility] of Vaccine Quad .5 mL 00:00:00 [facility] Influenza Virus 2019-02-06 Completed [facility]it y of Vaccine Quad .5 mL 00:00:00 [facility] Influenza Virus [...] y of Vaccine Quad .5 mL 00:00:00 [facility] Influenza Virus 2019-02-06 Completed [facility]it y of Vaccine Quad .5 mL 00:00:00 [facility] Influenza Virus 2019-02-06 Completed [facility]it y of Vaccine Quad .5 mL 00:00:00 [facility] Influenza Virus 2019-02-06 Completed [facility]it y of Vaccine Quad .5 mL 00:00:00 [facility] Influenza Virus 2019-02-06 Completed [facility]it y of Vaccine Quad .5 mL 00:00:00 [facility] Influenza Virus [...] y of Vaccine Quad .5 mL 00:00:00 [facility] Influenza Virus [...] y of Vaccine Quad .5 mL 00:00:00 [facility] Influenza Virus 2019-02-06 Completed [facility]it y of Vaccine Quad .5 mL 00:00:00 [facility] IM 6+ MO [facility] Vital Signs Vital Name Observation Time Observation Value Comments Source Systolic blood 2022-09-05 17:22:00 139 mm[Hg] Univer sity of pressure [facility] Diastolic blood 2022-09-05 17:22:00 91 mm[Hg] Unive rsity of [facility] Heart rate 2022-09-05 17:22:00 120 /min Universi ty [facility] Respiratory rate 2022-09-05 17:22:00 18 /min [facility] in 2022-09-05 17:22:00 99 /min [facility] Arterial blood by [facility] Pulse oximetry Branch Body temperature 2022-09-05 13:43:00 37.11 [facility] Body weight 2022-09-05 13:43:00 [facility]04 [facility] BMI 2022-09-05 13:43:00 28.34 kg/m2 [facility] Systolic blood 2022-08-01 00:49:00 138 mm[Hg] Univer sity of pressure [facility] Diastolic blood 2022-08-01 00:49:00 104 mm[Hg] Unive rsity of pressure [facility] Heart rate 2022-08-01 00:49:00 108 /min Universi ty [facility] Respiratory rate 2022-08-01 00:49:00 18 /[facility] Oxygen saturation in 2022-08-01 00:49:00 99 /min University of Arterial blood by [facility] Pulse oximetry Branch Body temperature 2022-07-31 22:52:00 37.11 Irene Univ ersity of [facility] Body height 2022-07-31 22:52:00 154.9 cm Universi ty of [facility] Body weight 2022-07-31 22:52:00 68.04 kg [facility]i ty [facility] BMI 2022-07-31 22:52:00 28.34 kg/m2 [facility] Systolic blood 2022-07-15 15:32:00 130 mm[Hg] Univer sity of pressure [facility] Diastolic blood 2022-07-15 15:32:00 90 mm[Hg] Unive rsity of pressure [facility] Heart rate 2022-07-15 15:31:00 81 /min [facility]i ty [facility] Body temperature 2022-07-15 15:31:00 36.94 Irene Univ ersity of [facility] Respiratory rate 2022-07-15 15:31:00 16 /min Univ ersity of [facility] Body weight 2022-07-15 15:31:00 68.493 kg [facility]i [facility] BMI 2022-07-15 15:31:00 28.53 kg/m2 [facility] Oxygen saturation in 2022-07-15 15:31:00 99 /min University of Arterial blood by [facility] Pulse oximetry Branch Systolic blood 2022-06-23 15:26:00 111 mm[Hg] Univer sity of pressure [facility] Diastolic blood 2022-06-23 15:26:00 75 mm[Hg] Unive rsity of pressure [facility] Heart rate 2022-06-23 15:26:00 108 /min [facility]i ty [facility] Body temperature 2022-06-23 15:26:00 36.83 Irene Univ ersity of [facility] Respiratory rate 2022-06-23 15:26:00 18 /min Univ ersity of [facility] Body height 2022-06-23 15:26:00 154.9 cm [facility]i ty [facility] Body weight 2022-06-23 15:26:00 71.385 kg [facility]i [facility] BMI 2022-06-23 15:26:00 29.74 kg/m2 [...] /min University of Arterial blood by [place] [employer] yessi Pulse oximetry Branch Body temperature 2022-05-05 18:24:00 37.11 Irene Univ ersity of [facility] Body height 2022-05-05 18:24:00 154.9 cm Universi ty [facility] Body weight 2022-05-05 18:24:00 54.432 kg [facility]i ty [facility] BMI 2022-05-05 18:24:00 22.67 kg/m2 [facility] ty [facility] Systolic blood 2022-04-26 14:28:00 135 mm[Hg] Univer sity of pressure [facility] Diastolic blood 2022-04-26 14:28:00 95 [...] 100 /min University of Arterial blood by [place] [employer] yessi Pulse oximetry Branch Systolic blood 2022-04-26 00:21:00 151 mm[Hg] Univer sity of pressure [facility] Diastolic blood 2022-04-26 00:21:00 98 mm[Hg] Unive rsity of pressure [facility] Heart rate 2022-04-26 00:21:00 98 /min Universi ty of [facility] Body temperature 2022-04-26 00:21:00 36.72 Irene Univ ersity of [facility] Respiratory rate 2022-04-26 00:21:00 18 [...] 2022-04-07 22:43:36 113 /min [facility]i ty [facility] Respiratory rate 2022-04-07 22:43:36 18 /min Univ ersity of [facility] Oxygen saturation in 2022-04-07 22:43:36 97 /min University of Arterial blood by [place] [employer] yessi Pulse oximetry Branch Body temperature 2022-04-07 19:41:00 37.17 Irene Univ ersity of [facility] Body height 2022-04-07 19:41:00 154.9 cm [facility]i ty [facility] Body weight 2022-04-07 19:41:00 60.328 kg [facility]i ty [facility] BMI 2022-04-07 19:41:00 25.13 kg/m2 [facility] Systolic blood 2022-03-24 19:00:00 125 mm[Hg] Univer sity of pressure [facility] Diastolic blood 2022-03-24 19:00:00 86 mm[Hg] Unive rsity of pressure [facility] Heart rate 2022-03-24 19:00:00 93 /min Universi ty of [facility] Respiratory rate 2022-03-24 19:00:00 17 /min Univ ersity of [facility] Oxygen saturation in 2022-03-24 19:00:00 97 /min University of Arterial blood by [place] [employer] yessi Pulse oximetry Branch Body temperature 2022-03-24 13:33:00 36.78 Irene Univ ersity of [facility] Systolic blood 2022-03-15 19:23:00 128 mm[Hg] Univer sity of pressure [facility] Diastolic blood 2022-03-15 19:23:00 89 mm[Hg] Unive rsity of pressure [facility] Heart rate 2022-03-15 19:23:00 104 /min [facility]i ty of [facility] Body weight 2022-03-15 19:23:00 60.328 kg [facility]i ty of [facility] BMI 2022-03-15 19:23:00 25.13 kg/m2 [facility] ty [facility] Oxygen saturation in 2022-03-15 19:23:00 98 /min University of Arterial blood by [place] [employer] yessi Pulse oximetry Branch Systolic blood 2022-03-15 15:02:00 115 mm[Hg] Univer sity of pressure [facility] Diastolic blood 2022-03-15 15:02:00 70 mm[Hg] Unive rsity of pressure [facility] Heart rate 2022-03-15 15:02:00 85 /min [facility]i ty of [facility] Respiratory rate 2022-03-15 15:02:00 20 /min Univ ersity of [facility] Oxygen saturation in 2022-03-15 15:02:00 99 /min University of Arterial blood by [place] [employer] yessi Pulse oximetry Branch Body temperature 2022-03-15 13:38:00 36.94 Irene Univ ersity of [facility] Body height 2022-03-15 13:38:00 154.9 cm [facility]i ty [facility] Body weight 2022-03-15 13:38:00 54.432 kg [facility]i ty [facility] BMI 2022-03-15 13:38:00 22.67 kg/m2 [facility] Systolic blood 2022-03-11 16:30:00 124 mm[Hg] Univer sity of pressure [facility] Diastolic blood 2022-03-11 16:30:00 88 mm[Hg] Unive rsity of pressure [facility] Heart rate 2022-03-11 16:30:00 93 /min [facility]i ty [facility] Body temperature 2022-03-11 16:30:00 36.67 Irene Univ ersity of [facility] Respiratory rate 2022-03-11 16:30:00 14 /min Univ ersity of [facility] Oxygen saturation in 2022-03-11 16:30:00 100 /min University of Arterial blood by [facility] Pulse oximetry Branch Body height 2022-03-11 14:19:00 154.9 cm [facility]i ty [facility] Body weight 2022-03-11 14:19:00 58.968 kg [facility]i ty [facility] BMI 2022-03-11 14:19:00 24.56 kg/m2 [facility] Systolic blood 2022-02-27 14:14:00 140 mm[Hg] Univer sity of pressure [facility] Diastolic blood 2022-02-27 14:14:00 90 mm[Hg] Unive rsity of pressure [facility] Heart rate 2022-02-27 14:14:00 103 /min [facility]i ty [facility] Body height 2022-02-27 14:14:00 154.9 cm [facility] Body weight 2022-02-27 14:14:00 59.194 kg [facility] BMI 2022-02-27 14:14:00 24.66 kg/m2 [facility] Oxygen saturation in 2022-02-27 14:14:00 100 /min [facility] Arterial blood by [facility] Systolic blood 2022-02-27 13:19:00 131 mm[Hg] Univer sity of pressure [facility] Diastolic blood 2022-02-27 13:19:00 86 mm[Hg] Unive rsity of pressure [facility] Heart rate 2022-02-27 13:19:00 102 /min [facility]i ty [facility] Body temperature 2022-02-27 13:19:00 36.33 Irene Univ ersity [facility] Body height 2022-02-27 13:19:00 154.9 cm [facility] ty [facility] Body weight 2022-02-27 13:19:00 58.968 kg [facility]i ty [facility] BMI 2022-02-27 13:19:00 24.56 kg/m2 [facility] ty [facility] Oxygen saturation in 2022-02-27 13:19:00 99 /min [facility] Arterial blood by [facility] P[facility] Systolic blood 2022-02-21 08:06:00 135 mm[Hg] Univer sity of pressure [facility] Diastolic blood 2022-02-21 08:06:00 97 mm[Hg] Unive rsity of pressure [facility] Heart rate 2022-02-21 08:06:00 98 /min [facility]i ty [facility] Respiratory rate 2022-02-21 08:06:00 16 /min Univ ersity of [facility] Oxygen saturation in 2022-02-21 08:06:00 97 /min [facility] Arterial blood by [facility] Body temperature 2022-02-21 06:16:00 36.94 Irene Univ ersity of [facility] Body height 2022-02-21 06:16:00 154.9 cm Universi ty [facility] Body weight 2022-02-21 06:16:00 60.963 kg [facility]i ty [facility] BMI 2022-02-21 06:16:00 25.39 kg/m2 [facility] ty [facility] Systolic blood 2022 20:08:00 136 [...] 98 /min University of Arterial blood by [facility] Pulse oximetry Branch Body [...] 98 /min University of Arterial blood by [place] [employer] yessi Pulse oximetry Branch Systolic blood 2022-01-18 14:50:00 144 mm[Hg] Univer sity of pressure [facility] Diastolic blood 2022-01-18 14:50:00 92 mm[Hg] Unive rsity of pressure [facility] Heart rate 2022-01-18 14:50:00 94 /min Universi ty of [facility] Respiratory rate 2022-01-18 14:50:00 20 /min Univ ersity of [facility] Oxygen saturation in 2022-01-18 14:50:00 99 /min University of Arterial blood by [place] [employer] Pulse oximetry Branch Body weight 2022-01-18 10:18:00 54.432 kg [facility]i ty [facility] BMI 2022-01-18 10:18:00 22.67 kg/m2 [facility] ty [facility] Body temperature 2022-01-18 10:15:00 36.72 Irene Univ ersity [facility] Systolic blood 2022-01-15 15:48:26 125 mm[Hg] Univer sity of pressure [facility] Diastolic blood 2022-01-15 15:48:26 85 mm[Hg] Unive rsity of pressure [facility] Heart rate 2022-01-15 15:48:26 95 /min [facility]i ty [facility] Respiratory rate 2022-01-15 15:48:26 18 /min Univ ersity of [facility] Oxygen saturation in 2022-01-15 15:48:26 98 /min University of Arterial blood by [place] [employer] yessi Pulse oximetry Branch Body temperature 2022-01-15 13:32:00 37.11 Irene Univ ers[facility] Body height 2022-01-15 13:32:00 154.9 cm [facility]i ty [facility] Body weight 2022-01-15 13:32:00 54.432 kg [facility] ty [facility] BMI 2022-01-15 13:32:00 22.67 kg/m2 [facility] Systolic blood 2022-01-09 00:37:11 127 mm[Hg] Univer sity of pressure [facility] Diastolic blood 2022-01-09 00:37:11 90 mm[Hg] Unive rsity of pressure [facility] Heart rate 2022-01-09 00:37:11 94 /min [facility]i ty [facility] Body temperature 2022-01-09 00:37:11 37.11 Irene Univ ers[facility] Respiratory rate 2022-01-09 00:37:11 16 /min Univ ersity of [facility] Oxygen saturation in 2022-01-09 00:37:11 97 /min University of Arterial blood by [facility] Pulse oximetry Branch Body height 2022-01-08 23:03:00 154.9 cm Universi [facility] Body weight 2022-01-08 23:03:00 58.06 kg Universi [facility] BMI 2022-01-08 23:03:00 24.19 kg/m2 [facility] Systolic blood 2021-12-12 18:00:00 126 mm[Hg] Univer sity of pressure [facility] Diastolic blood 2021-12-12 18:00:00 87 mm[Hg] Unive rsity of [facility] Heart rate 2021-12-12 18:00:00 86 /min [facility] Body temperature 2021-12-12 18:00:00 36.89 Irene [facility] Respiratory rate 2021-12-12 18:00:00 18 /min [facility] Body height 2021-12-12 18:00:00 154.9 cm [facility] Body weight 2021-12-12 18:00:00 57.153 kg [facility] BMI 2021-12-12 18:00:00 23.81 kg/m2 [facility] Procedures Procedure Date / Time Performing Clinician Source Performed CONSENT/REFUSAL FOR 2022-09-05 13:42:02 Doctor Unassigned, No [facility] [place] [facility] TREATMENT Name [facility] LIPASE 2022-07-31 23:13:00 Manju Newell [facility] TEST, SERUM 2022-07-31 23:13:00 [facility] MET[facility]OLIC PANEL 2022-07-31 23:13:00 [facility] [place] [id number] CBC WITH DIFF 2022-07-31 23:13:00 Manju Newell [facility] CONSENT/REFUSAL FOR 2022-07-31 22:49:17 Doctor Unassigned, No Un iversity [facility] DIAGNOSIS AND TREATMENT Name [facility] XR ANKLE 3+ VW RIGHT 2022-07-15 16:00:00 Cari Kaur [facility] XR FOOT 3+ VW RIGHT 2022-07-15 16:00:00 Cari Kaur [facility] XR FOOT 3+ VW RIGHT 2022-07-15 16:00:[facility] [place] [facility] PATIENT FINANCIAL 2022-07-15 15:25:53 Doctor Unassigned, No [facility] POLICY [facility] POCT MOLECULAR STREP 2022-06-23 16:06:00 Unknown, Attending [facility] ASSIGNMENT OF BENEFITS 2022-06-23 15:18:28 Doctor Unassigned, No [facility] COMP. METABOLIC PANEL 2022-05-05 19:14:00 Karon Norton [facility] ([id number]) [facility] CBC WITH DIFF 2022-05-05 19:14:00 [facility] 2022-05-05 19:00:00 Karon Norton [facility] URINALYSIS 2022-05-05 18:58:[address] [facility] [facility]BDOMEN PELVIS WO 2022-04-26 15:11:00 Zion Bridges [facility] COMP. METABOLIC PANEL 2022-04-26 14:49:00 [facility] ([id number]) [facility] CBC WITH DIFF 2022-04-26 14:49:00 Zion Bridges [facility] URINALYSIS 2022-04-26 14:49:00 Zion Bridges [facility] POCT TEST 2022-04-26 14:45:00 Zion Bridges [facility] CONSENT/REFUSAL FOR 2022-04-26 14:22:29 Doctor Unassigned, No [facility] DIAGNOSIS AND TREATMENT [facility] POCT TEST 2022-04-26 01:22:00 Zion Bridges [facility] ASSIGNMENT OF BENEFITS 2022-04-26 00:54:02 Doctor Unassigned, No [facility] URINALYSIS 2022-04-26 00:45:00 Zion Bridges [facility] CONSENT/REFUSAL FOR 2022-04-26 00:16:47 Doctor Unassigned, No [facility] [place] [facility] TREATMENT Name [facility] BASIC METABOLIC PANEL 2022-04-07 22:35:00 Olamide Garvin [facility] (NA, K, CL, CO2, Medical Branch GLUCOSE, BUN, CREATININE, CA) CBC WITH DIFF 2022-04-07 22:35:00 Olamide Garvin [facility] URINALYSIS 2022-04-07 21:36:00 Olamide Garvin [facility] URINE DRUG (IMMUNOASSAY) 2022-04-07 21:36:00 Olamide Garvin [facility] [place] - COMPREHENSIVE DRUG Medical [facility] SCREEN W/O REFLEX CONSENT/REFUSAL FOR 2022-04-07 19:29:15 Doctor Unassigned, No [facility] [place] DIAGNOSIS AND TREATMENT [facility] POCT TEST 2022-03-24 14:07:00 Kellie Duncan [facility] CONSENT/REFUSAL FOR 2022-03-24 13:27:20 Doctor Unassigned, No [facility] [place] [facility] TREATMENT Name [facility] CT ABDOMEN PELVIS WO 2022-03-15 14:09:04 Anna Gould [facility] CONTRAST [facility] URINALYSIS 2022-03-15 13:53:00 Anna Gould [facility] POCT TEST 2022-03-15 13:52:00 Anna Gould [facility] CONSENT/REFUSAL FOR 2022-03-15 13:37:02 Doctor Unassigned, No [facility] [place] DIAGNOSIS AND TREATMENT [facility] POCT TEST 2022-03-11 14:59:[address] [facility] ty [facility] FLU VACC ([id number]), 6 2022-02-27 13:34:55 Vijay Martinez [facility] MO-64 YRS, .5ML, IM, Medical Bra [facility] QUAD (FLUCELVAX) NOTICE OF PRIVACY 2022-02-21 06:06:30 Doctor Unassigned, No [facility] PRACTICES Name Medical Branch CONSENT/REFUSAL FOR 2022-02-21 06:03:41 Doctor Unassigned, No [facility] [place] DIAGNOSIS AND TREATMENT Name Medical Branch XR ANKLE <3 VW RIGHT 2022 17:56:42 Maggie Hamilton [facility] CT ABDOMEN PELVIS W 2022 17:44:17 Maggie Hamilton [facility] CT TRAUMA CERVICAL SPINE 2022 17:43:49 Maggie Hamilton [facility] CONTRAST [facility] POCT TEST 2022 17:27:00 Maggie Hamilton [facility] COMP. METABOLIC PANEL 2022 17:17:00 Maggie Hamilton [facility] ([id number]) Medical Branch CBC WITH DIFF 2022 17:17:00 Maggie Hamilton [facility] CONSENT/REFUSAL FOR 2022 16:53:13 Doctor Unassigned, No [facility]AT[facility] Name Medical Branch US GALL BLADDER 2022-01-18 12:31:09 Bernardo Levy [place] [facility] US PELVIS COMPLETE WITH 2022-01-18 12:21:13 Melvin Zhao [facility] TRANSVAGINAL [facility] CT ABDOMEN PELVIS W 2022-01-18 11:20:50 Melvin Zhao [facility] CONTRAST [facility] POCT TEST 2022-01-18 10:57:00 Jayy Kennedy [facility] COVID-19 (ID NOW RAPID 2022-01-18 10:57:00 Jayy Kennedy [facility] TESTING) Medical Branch URINALYSIS 2022-01-18 10:47:00 Jayy Kennedy [place] [facility] [place] [facility] LIPASE 2022-01-18 10:29:00 Jayy Kennedy [place] [facility] TEST, SERUM 2022-01-18 10:29:00 Jayy Kennedy [facility] HEPATIC FUNCTION PANEL 2022-01-18 10:29:00 Jayy Kennedy [facility] ([id number]) (ALB,T.PRO,BILI Medical Branch T,BU/BC,ALT,AST,ALK PHOS) BASIC METABOLIC PANEL 2022-01-18 10:29:00 Jayy Kennedy [facility] (NA, K, CL, CO2, Medical Branch GLUCOSE, BUN, CREATININE, CA) CBC WITH DIFF 2022-01-18 10:29:00 Jayy Kennedy [facility] CONSENT/REFUSAL FOR 2022-01-18 10:13:31 Doctor Unassigned, No Un i[facility] DIAGNOSIS AND TREATMENT Name [facility] CT HEAD WO CONTRAST 2022-01-15 15:22:29 Danita [facility] TEST, SERUM 2022-01-15 14:36:00 Danita [facility] BASIC METABOLIC PANEL 2022-01-15 14:36:00 [facility] (NA, K, CL, CO2, Medical Branch GLUCOSE, BUN, CREATININE, CA) CBC WITH DIFF 2022-01-15 14:36:00 Danita [facility] CONSENT/REFUSAL FOR 2022-01-15 13:28:12 Doctor Unassigned, No [facility] TREATMENT Name [facility] XR CERVICAL SPINE 4 VW 2022-01-09 00:29:16 [facility] LUMBAR SPINE 4 VW 2022-01-09 00:29:16 [facility] SPINE THORACIC 3 VW 2022-01-09 00:29:16 [facility]IN[facility]IS 2022-01-08 23:50:[facility]USAL FOR 2022-01-08 22:51:08 Doctor Unassigned, No [facility] Name [facility] GALV ONLY - VAGINAL 2021-12-12 18:37:00 Prasanna Vargsa [facility] PATHOGENS BY NUCLEIC Medical [facility] ACID TESTING URINE CULTURE 2021-12-12 18:32:00 Prasanna Vargas [facility] POCT TEST 2021-12-12 18:31:00 Alicia Prasanna [facility] POCT URINALYSIS W/O 2021-12-12 18:31:00 Prasanna Vargas [facility] [place] SPECIFIC [facility] Branch Encounters Start End Encounter Admission Attending Care Care Encounter Source Date/Time Date/Time Type Type Clinicians Facility Department ID 2021-03-14 Emergency [facility] [id number] Univers 03:14:31 ity of [facility] 2021-03-13 Emergency [facility] [id number] Univers 20:05:20 ity of [facility] 2021-03-13 Emergency [facility] [id number] Univers 12:48:28 ity of [facility] 2021-03-13 Emergency [facility] [id number] Univers 02:43:51 ity of [facility] 2021-03-13 Emergency [facility] [id number] Univers 00:27:09 ity of [facility] 2021-03-12 Emergency [facility] [id number] Univers 22:10:36 ity of [facility] 2021-03-12 Emergency [facility] [id number] Univers 20:04:05 ity of [facility] 2021-03-12 Emergency [facility] [id number] Univers 15:25:05 ity of [facility] 2021-03-12 Emergency [facility] [id number] Univers 11:43:36 ity of [facility] 2021-03-12 Emergency [facility] [id number] Univers 07:41:37 ity of [facility] 2021-03-12 Emergency [facility] [id number] Univers 05:43:47 ity of [facility] 2021-03-12 Emergency [facility] [id number] Univers 03:43:41 ity of [facility] 2021-03-12 Emergency [facility] [id number] Univers 01:31:27 ity of [facility] 2021-03-12 Emergency X [facility] ERT [id number] Univers 00:56:44 ity of [facility] 2021-03-12 Emergency [facility] [id number] Univers 00:56:31 ity of [facility] 2021-03-11 Emergency [facility] [id number] Univers 17:47:02 ity of [facility] 2021-03-11 Emergency [facility] [id number] Univers 16:27:15 ity of [facility] 2021-03-11 Emergency [facility] [id number] Univers 12:00:58 ity of [facility] 2021-03-11 Emergency [facility] [id number] Univers 10:33:59 ity of [facility] 2021-03-11 Emergency [facility] [id number] Univers 01:36:52 ity of [facility] 2021-03-10 Emergency [facility] [id number] Univers 23:35:34 ity of [facility] 2021-03-10 Emergency [facility] [id number] Univers 19:06:16 ity of [facility] 2021-03-10 Emergency [facility] [id number] Univers 12:39:47 ity of [facility] 2021-03-10 Emergency [facility] [id number] Univers 06:54:04 ity of [facility] 2021-03-09 Outpatient P [facility] [id number] Univers 13:25:44 ity of [facility] 2021-03-09 Outpatient P [facility] [id number] Univers 13:08:01 ity of [facility] 2021-03-09 Outpatient P [facility] [id number] Univers 12:37:25 ity of [facility] 2021-03-09 Outpatient P [facility] CHRIS [id number] Univers 11:51:20 ity of [facility] 2022-11-15 2022-11-15 Outpatient R JC JEREMY [facility] [id number] Univers 09:40:00 09:40:00 JEREMY GREENEchino [facility] 2022-11-09 2022-11-09 Outpatient [facility] [id number] Willis 15:26:18 15:26:18 0630 F Jeffery 2022-11-06 2022-11-06 Outpatient R JUAN [facility] [id number] Univers 13:00:00 13:00:00 VIJAY lechuga [facility] 2022-10-29 2022-10-29 Patient Jc [facility] 1.2.840.114 [id number] Univers 00:00:00 00:00:00 Secure [facility] 350.1.13.10 ity of [place] 4.2.7.2.686 Martin as TOÑO?BLEA [id number] Ct dical KNEY 044 [facility] OFFICE [facility] 2022-10-03 2022-10-03 Letter Gurjit Lim [facility] ..840.114 [id number] Univers 00:00:00 00:00:00 (Out) HEALTH 350.1.13.10 it y of [place] 4.2.7.2.686 [place] as TOÑO?BLEA [id number] Ct dical MIKI 092 [facility] 2022-10-02 2022-10-02 Outpatient R SHARMIN [facility] [id number] Univers 10:00:00 10:00:00 , CELINA it y of [facility] 2022-10-01 2022-10-01 Outpatient R ARJUN [facility] [id number] Univers 09:40:00 09:40:00 REJI lechuga o f [facility] 2022-09-25 2022-09-25 Telephone [facility] ..[id number] Univers 00:00:00 00:00:00 Rad [facility] 350.1.13.10 [place]2.[id number] Ct whit TORRES 059 [facility] 2022-09-21 2022-09-21 Outpatient R LEXY [facility] [id number] Univers 09:30:00 09:30:00 KASSANDRA ity of [facility] 2022-09-21 2022-09-21 Letter [facility] ..840.114 [id number] Univers 00:00:00 00:00:00 (Out) [employer] HEALTH 350.1.13.10 it y of [place] 4.2.7.2.686 [place] as TOÑO?BLEA [id number] Ct dicaliyah [place] 092 [facility] 2022-09-21 2022-09-21 Telephone [facility] 1..711.306 [id number] Univers 00:00:00 00:00:00 Kassandra HEALTH 350.1.13.10 it y of [place] 4.2.7.2.686 [place] as TOÑO?BLEA [id number] Ct whit [address] 2022-09-21 2022-09-21 Telephone [facility] 1.2.989.413 [id number] Univers 00:00:00 00:00:00 Alloptic 350.1.13.10 it y of [place] 4.2.7.2.686 Mratin as TOÑO?BLEA [id number] Ct alessandra[address] 2022-09-14 2022-09-14 Outpatient R [facility] [id number] Univers 09:30:00 09:30:00 [facility] 2022-09-12 2022-09-12 Telephone [facility] 1..213.016 [id number] Univers 00:00:00 00:00:00 Alloptic 350.1.13.10 it y of [place] 4.2.7.2.686 [place] as TOÑO?BLEA [id number] [address] 2022-09-07 2022-09-07 Outpatient R [facility] [id number] Univers 11:30:00 11:30:00 [facility] 2022-09-05 2022-09-05 Emergency X [facility] ERT [id number] Univers 08:44:00 13:15:00 CYNVANESA [facility] 2022-09-05 2022-09-05 Emergency [facility] ..542.713 [id number] Univers 08:44:00 13:15:00 Cynise [place] 350.1.13.10 i ty of [place].2.7.2.[place] [id number] [address] 2022-09-04 2022-09-04 Telephone [facility] 1.2.191.607 [id number] Univers 00:00:00 00:00:00 Alloptic 350.1.13.10 it y of [place] 4.2.7.2.686 [place] as TOÑO?BLEA [id number] Ct whit [place] 192192 [facility] OFFICE [facility] 2022-09-04 2022-09-04 Patient Serra, [facility] 1.2.840.114 [id number] Univers 00:00:00 00:00:00 Secure Msg Sendzohra KayceePilarPauloPilar [place] 350.1.13.10 ity of [facility] 4.2.7.2.686 [place] [facility] [id number] Ct dical NAL 059 [facility] 2022-08-29 2022-08-29 Outpatient R SHARMIN [facility] [id number] Univers 09:00:00 09:00:00 , CELINA it y of [facility] 2022-08-14 2022-08-14 Patient Doctor [facility] 1.2.840.114 [id number] Univers 00:00:00 00:00:00 Secure Msg [facility] 350.1.13.10 ity of [place] [facility] 4.2.7.2.686 [place] as TOÑO?BLEA [id number] Ct dic[place] 104572 [facility] 2022-07-31 2022-07-31 Emergency [facility] [id number] Univers 17:56:00 20:30:00 MANJU it y [facility] 2022-07-31 2022-07-31 Emergency [facility] 1.2.566.011 [id number] Univers 17:56:00 20:30:00 Manju [place] 350.1.13.10 ity of [facility] 4.2.7.2.686 [place] [id number] [facility] 084 [place] 2022-07-15 2022-07-15 Outpatient R [facility] [id number] Univers 09:46:45 23:59:00 CARI davis [facility] 2022-07-15 2022-07-[address] [facility] 1.2.840.114 [id number] Univers 09:46:45 23:59:00 Encounter Cari Farmer [facility] 350.1.13.10 ity of [facility] 4.2.7.2.686 [place] TOÑO?BLEA [id number] [facility] 808 [facility] OFFICE [facility] 2022-07-15 2022-07-[address] [facility] 1.2.840.114 [id number] Univers 09:46:45 23:59:00 Encounter Cari Farmer [facility] 350.1.13.10 ity of [place] 4.2.7.2.686 [place] as TOÑO?BLEA [id number] [facility] 808 [facility] OFFICE [facility] 2022-07-15 2022-07-15 Urgent Cari Kaur [facility] 1.2.840 .114 [id number] Univers 09:20:00 10:29:17 Care Unknown, Attending HEALTH 350.1.13.10 ity of [place] 4.2.7.2.686 [place] as TOÑO?BLEA [id number] [address] OFFICE [facility] 2022-07-15 2022-07-15 Orders Doctor ORTEGA 1.2.840.114 [id number] Univers 00:00:00 00:00:00 Only Unassigned, YAZMIN 350.1.13.10 ity of [place] [facility] 4.2.7.2.686 [place] as [id number] [address] 2022-06-23 2022-06-23 Outpatient R NEGRITA [facility] [id number] Univers 09:20:00 10:27:39 [facility] ity of [facility] 2022-06-23 2022-06-23 Urgent [facility] 1.2.840. 114 [id number] Univers 09:20:00 10:27:39 Care Unknown, Attending HEALTH 350.1.13.10 ity of [place] 4.2.7.2.686 [place] as TOÑO?BLEA [id number] [address] OFFICE [facility] 2022-06-23 2022-06-23 Orders Doctor JORDAN 1.2.840.114 [id number] Univers 00:00:00 00:00:00 Only Unassigned, YAZMIN 350.1.13.10 ity of [place] [facility] 4.2.7.2.686 [place] as [id number] [address] 2022-06-152022-06-15 Outpatient R JC, [facility] [id number] Univers 09:40:00 09:40:00 JEREMY lechuga [facility] 2022-05-29 2022-05-29 Outpatient R PUGH, [facility] [id number] Univers 08:00:00 08:00:00 KASSANRDA lechuga [facility] 2022-05-15 2022-05-15 Outpatient R ANGELA, [facility] [id number] Univers 09:20:00 09:20:00 BENNETT lechuga [facility] 2022-05-11 2022-05-11 Outpatient R PUGH, [facility] [id number] Univers 09:30:00 09:30:00 KASSANDRA chino [facility] 2022-05-05 2022-05-05 Emergency X ERROL [facility] ERT [id number] Univers 12:26:00 16:11:00 KARON lechuga [facility] 2022-05-05 2022-05-05 Emergency [facility] 1.2.840.114 [id number] Univers 12:26:00 16:11:00 Karon LULU 350.1.13.10 i ty of [place] 4.2.7.2.686 [facility] [id number] [address] 2022-05-01 2022-05-01 Outpatient R PRASANNA VARGAS [facility] [id number] Univers 00:00:00 00:00:00 ankush [facility] 2022-04-26 2022-04-26 Emergency X SINGER [facility] ERT [id number] Univers 08:30:00 09:59:00 ZION lechuga [facility] 2022-04-26 2022-04-26 Emergency [facility] 1.2.261.501 [id number] Univers 08:30:00 09:59:00 Zion LULU 350.1.13.10 i ty of [place] 4.2.7.2.686 [facility] [id number] [address] 2022-04-25 2022-04-25 Emergency X GUTIERREZ, [facility] ERT [id number] Univers 18:23:00 21:55:00 KENNEDY lechuga [facility] 2022-04-25 2022-04-25 Emergency [facility] 1.2.772.589 [id number] Univers 18:23:00 21:55:00 Kennedy LAWSON 350.1.13.10 i ty of [facility] 4.2.7.2.686 [place] [id number] [address] 2022-04-19 2022-04-19 [facility] [id number] Univers 10:00:00 10:00:00 JEREMY lechuga [facility] 2022-04-12 2022-04-12 Telephone [facility] 1.2.365.169 [id number] Univers 00:00:00 00:00:00 Alloptic 350.1.13.10 it y of [facility] 4.2.7.2.686 [place] as TOÑO?BLEA [id number] [address] OFFICE [facility] 2022-04-11 2022-04-11 Telephone [facility] 1.2.840.114 [id number] Univers 00:00:00 00:00:00 Darrion Twist [facility] 350.1.13.10 ity of [place] 4.2.7.2.686 [place] as TOÑO?BLEA [id number] [address] OFFICE [facility] 2022-04-10 2022-04-10 Telephone [facility] 1.2.325.116 [id number] Univers 00:00:00 00:00:00 Alloptic 350.1.13.10 it y of [facility] 4.2.7.2.686 [place] as TOÑO?BLEA [id number] [address] OFFICE [facility] 2022-04-09 2022-04-09 Office [facility] 1.2.840.114 [id number] Univers 09:30:00 09:30:00 Visit Alloptic 350.1.13.10 it y of [place] 4.2.7.2.686 [place] as TOÑO?BLEA [id number] [address] OFFICE [facility] 2022-04-09 2022-04-09 Outpatient R LEXY [facility] [id number] Univers 09:30:00 09:21:44 KASSANDRAAUGUSTO lechuga [facility] 2022-04-07 2022-04-07 Emergency X VRIGIE, [facility] ERT [id number] Univers 13:41:00 17:49:00 OLAMIDEISMAEL lechuga [facility] 2022-04-07 2022-04-07 Emergency [facility] 1.2.725.146 [id number] Univers 13:41:00 17:49:00 Olamide Laila LULU 350.1.13.10 ity of [place] 4.2.7.2.686 [facility] [id number] [address] 2022-04-04 2022-04-04 Telephone [facility] 1.2.509.377 [id number] Univers 00:00:00 00:00:00 Kassandra HEALTH 350.1.13.10 it y of [place] 4.2.7.2.686 [place] as TOÑO?BLEA [id number] [address] MEDICAL OFFICE [facility] 2022-04-02 2022-04-02 Outpatient R LEXY [facility] [id number] Univers 10:30:00 10:30:00 KASSANDRA lechuga [facility] 2022-03-28 2022-03-28 Patient Doctor [facility] 1.2.840.114 [id number] Univers 00:00:00 00:00:00 Secure Msg Unassigned, HEALTH 350.1.13.10 ity of [place] 4.2.7.2.686 [place] as TOÑO?BLEA [id number] [address] MEDICAL OFFICE [facility] 2022-03-24 2022-03-24 Emergency X PERLA, [facility] ERT [id number] Univers 07:35:00 13:11:00 KELLIE lechuga [facility] 2022-03-24 2022-03-24 Emergency Perla, [facility] 1.2.827.811 [id number] Univers 07:35:00 13:11:00 Kellie LAWSON 350.1.13.10 ity of [facility] 4.2.7.2.686 [facility] [id number] [address] 2022-03-23 2022-03-23 Outpatient R LEXY [facility] [id number] Univers 10:30:00 10:30:00 KASSANDRA lechuga [facility] 2022-03-23 2022-03-23 [facility]phone [facility] 1.2.840.114 [id number] Univers 00:00:00 00:00:00 [facility] 350.1.13.10 ity of [place] 4.2.7.2.686 [place] as TOÑO?BLEA [id number] [address] 2022-03-22 2022-03-22 Telephone [facility] 1.2.840.114 [id number] Univers 00:00:00 00:00:00 [facility] 350.1.13.10 ity of [place] 4.2.7.2.686 [place] as TOÑO?BLEA [id number] [address] 2022-03-22 2022-03-22 Refill [facility] 1.2.840.114 [id number] Univers 00:00:00 00:00:00 [facility] 350.1.13.10 ity of [place] 4.2.7.2.686 [place] as TOÑO?BLEA [id number] [address] 2022-03-21 2022-03-21 Telephone [facility] 1.2.840.114 [id number] Univers 00:00:00 00:00:00 [facility] 350.1.13.10 ity of [place] 4.2.7.2.686 [place] as TOÑO?BLEA [phone] [address] 2022-03-15 2022-03-15 Outpatient R ARJUN [facility] [id number] Univers 14:00:00 14:36:19 REJI davis [facility] 2022-03-15 2022-03-15 Office [facility] 1.2.840.114 [id number] Univers 14:00:00 14:36:19 Visit Reji LAWSON [id number] it[facility] 4[place]2.[place].2.[place] [phone] alessandraaliyah TORRES [address] [facility] 2022-03-15 2022-03-15 Emergency X NAYANACAPRI [facility] ERT [id number] Univers 08:40:00 10:47:00 ANNA [facility] 2022-03-15 2022-03-15 Emergency [facility] 1.2.840.114 [id number] Univers 08:40:00 10:47:00 [facility] [id number] i ty of [facility] 4.2.7.2.686 [place] [phone] [address] 2022-03-14 2022-03-14 Outpatient PRASANNA LOOMIS [facility] [id number] Univers 10:30:00 10:30:00 ity [facility] 2022-03-11 2022-03-11 Emergency [facility] [id number] Univers 09:22:00 12:15:00 SHINTA [facility] 2022-03-11 2022-03-11 Emergency [facility] 1.2.840.114 [id number] Univers 09:22:00 12:15:00 Angelica LAWSON 350.1.13.10 i ty of [facility] 4.2.7.2.686 [place] [phone] [address] 2022-03-06 2022-03-06 Outpatient Farzana PUGH [facility] [id number] Univers 08:30:00 08:30:00 KASSANDRA [facility] 2022-03-02 2022-03-02 Telephone [facility] 1.2.840.114 [id number] Univers 00:00:00 00:00:00 [facility] 350.1.13.10 ity of [place] 4.2.7.2.686 [place] TOÑO?BLEA [phone] Ct alessandraaliyah [place] [address] MEDICAL OFFICE [facility] 2022-02-27 2022-02-27 Outpatient Farzana PUGH [facility] [id number] Univers 09:30:00 09:49:42 KASSANDRA lechuga [facility] 2022-02-27 2022-02-27 Office [facility] 1.2.840.114 [id number] Univers 09:30:00 09:49:42 Visit Kassandra [facility] 350.1.13.10 it y of [facility] 4.2.7.2.686 [place] TOÑO?BLEA [id number] Ct whit [place] [address] MEDICAL OFFICE [facility] 2022-02-27 2022-02-27 Office Juan [facility] 1.2.840.114 [id number] Univers 08:00:00 09:12:17 Visit Vijay [facility] 350.1.13.10 it y of [facility] 4.2.7.2.686 [place] TOÑO?BLEA [id number] Ct whit [place] [address] [facility] OFFICE [facility] 2022-02-26 2022-02-26 [facility] [id number] Univers 11:30:00 11:30:00 KASSANDRA [facility] 2022-02-21 2022-02-21 Emergency X [facility] ERT [id number] Univers 01:20:00 03:44:00 MAGGIE [facility] 2022-02-21 2022-02-21 Emergency [facility] 1.2.840.114 [id number] Univers 01:20:00 03:44:00 Maggie LAWSON 350.1.13.10 ity of [place] 4.2.7.2.686 [place] [facility] [id number] [facility] [address] 2022-02-19 2022-02-19 Patient [facility] 1.2.840.114 [id number] Univers 00:00:00 00:00:00 Secure Msg Kendal Amaral HEALTH 350.1.13.10 ity of [place] 4.2.7.2.686 [place] TOÑO?BLEA [id number] Ct whit [place] [address] [facility] OFFICE [facility] 2022-02-19 2022-02-19 Patient Robb [facility] 1.2.840.114 [id number] Univers 00:00:00 00:00:00 Secure Msg Kendal Amaral HEALTH 350.1.13.10 ity of [place] 4.2.7.2.686 [place] TOÑO?BLEA [id number] Me whit [place] [address] MEDICAL OFFICE BUILDING 2022-02-19 2022-02-19 Patient Suzette [facility] 1.2.634.056 [id number] Univers 00:00:00 00:00:00 Secure Msg Ade Chen FLACO 350.1.13.10 ity of [facility] 4.2.7.2.686 [place] [phone] [facility] [address] 2022 2022 Emergency X [facility] ERT [id number] Univers 11:58:00 15:13:00 MAGGIE lechuga [facility] 2022 2022 Emergency [facility] 1.2.840.114 [id number] Univers 11:58:00 15:13:00 Maggie [facility] 350.1.13.10 ity of [place] 4.2.7.2.686 [place] [facility] [phone] [facility] [address] 2022-02-09 2022-02-09 Outpatient R BRANDON [facility] [id number] Univers 09:00:00 09:00:00 CRICKET fitzpatrick [facility] 2022-02-06 2022-02-06 Outpatient R JUAN [facility] [id number] Univers 10:00:00 10:00:00 VIJAY lechuga [facility] 2022-02-05 2022-02-05 Nurse Nurse, Filippo [facility] 1.2.840.114 [id number] Univers 09:45:00 10:05:00 Visit Ileana Medrano [facility] 350.1.13.10 ity of [place] 4.2.7.2.686 [place] as TOÑO?BLEA [phone] Ct whit [place] [address] MEDICAL OFFICE [facility] 2022-02-05 2022-02-05 Outpatient R OLIVER [facility] [id number] Univers 09:20:00 09:20:00 FLACO davis [facility] 2022-01-26 2022-01-26 Prasanna Gimenez [facility] 1.2.600.222 [id number] Univers 00:00:00 00:00:00 Management Jm LAWSON 350.1.13.10 ity of [place] 4.2.7.2.686 [place] [id number] Ct dical [facility] [address] [facility] 2022-01-22 2022-01-22 Outpatient R JUAN, [facility] [id number] Univers 11:00:00 11:00:00 VIJAYLAVINIA lechuga [facility] 2022-01-18 2022-01-18 Emergency X GARDENIA [facility] ERT [id number] Univers 05:17:00 10:25:00 BERNARDO [facility] 2022-01-18 2022-01-18 Emergency KennedyJayy W TRAUMA 1.2.840.11 [id number] Univers 05:17:00 10:25:00 Bernardo Levy [employer] 350.1.13.10 ity [facility].2.7.2.686 [place] [phone] [facility] [address] 2022-01-15 2022-01-15 Emergency X [facility] ERT [id number] Univers 08:34:00 10:49:00 MAURA lechuga [facility] 2022-01-15 2022-01-15 Emergency Larry Perez R [facility] 1.2.840.1 14 [id number] Univers 08:34:00 10:49:00 Maura Samayoa 350.1.13.10 ity of [place] 4.2.7.2.686 [facility] [place] [phone] [address] 2022-01-08 2022-01-08 Emergency X GABRIELA, [facility] ERT [id number] Univers 18:04:00 20:09:00 HUMBERTO chino [facility] 2022-01-08 2022-01-08 Emergency [facility] 1.2.840.114 [id number] Univers 18:04:00 20:09:00 Humberto LAWSON 350.1.13.10 i ty of [place] 4.2.7.2.686 [place] [id number] [address] 2021-12-12 2021-12-12 Outpatient R DEYVI, [facility] [id number] Univers 13:30:00 13:40:21 TETO [facility] 2021-12-12 2021-12-12 Office Prasanna Vargas [facility] 1.2.840.114 [id number] Univers 13:30:00 13:40:21 Visit Teto Carnes 350.1.13.10 ity [facility] 4.2.7.2.686 [place] [facility] [id number] Ct dical [address] 2021-12-12 2021-12-12 Outpatient R DEYVI [facility] [id number] Univers 13:30:00 13:40:21 [facility] 2021-12-12 2021-12-12 Outpatient R DEYVI [facility] [id number] Univers 13:30:00 13:40:21 [facility] 2021-12-11 2021-12-11 Outpatient R SUZETTE, [facility] [id number] Univers 16:15:00 16:15:00 ADE [facility] 2021-12-05 2021-12-05 Outpatient R LYSSA, [facility] [id number] Univers 14:15:00 14:15:00 ROMULO [facility] 2021-11-28 2021-11-28 Emergency X ERROL, [facility] ERT [id number] Univers 08:49:00 11:02:00 KARON [facility] 2021-11-28 2021-11-28 Emergency Norotn, [facility] 1.2.840.114 [id number] Univers 08:49:00 11:02:00 Karon LAWSON 350.1.13.10 i ty [facility] 4.2.7.2.686 [place] [phone] [address] 2021-11-24 2021-11-24 Emergency X DEV, K [facility] ERT [id number] Univers 18:14:00 21:04:00 [facility] 2021-11-24 2021-11-24 Emergency Dev, K [facility] 1.2.840.114 [id number] Univers 18:14:00 21:04:00 Sharlene LAWSON 350.1.13.10 i ty of [place] 4.2.7.2.686 [place] [phone] [facility] [address] 2021-11-24 2021-11-24 Telephone [facility] 1.2.840.114 [id number] Univers 00:00:00 00:00:00 Cricket Lopez 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 ROOM 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 350.1.13.10 ity of [facility] 4.2.7.2.686 [place] MATERNAL [phone] Med ical & CHILD 107 [facility] 2021-11-20 2021-11-20 Patient Robb [facility] 1.2.840.114 [id number] Univers 00:00:00 00:00:00 Secure Ms Kendal [facility] 350.1.13.10 ity of [place] 4.2.7.2.686 [place] as TOÑO?BLEA [id number] Ct whit [place] [address] MEDICAL OFFICE BUILDING 2021-11-19 2021-11-19 Letter JORDAN Santacruz 1.2.840.114 [id number] Univers 00:00:00 00:00:00 (Out) Leslie YAZMIN 350.1.13.10 it y of [facility] 4.2.7.2.686 [place] as [id number] [facility] [address] 2021-11-18 2021-11-18 [facility] [id number] Univers 10:41:40 23:59:00 FLACO maradiagay o f [facility] 2021-11-18 2021-11-18 Hospital [facility] 1.2.917.577 [id number] Univers 10:41:40 23:59:00 Encounter Flaco HEALTH 350.1.13.10 ity of [place] 4.2.7.2.686 [place] as TOÑO?BLEA [id number] Ct whit [place] [address] MEDICAL OFFICE BUILDING 2021-11-18 2021-11-18 Urgent [facility] 1.2.840.114 [id number] Univers 10:20:00 10:53:20 Care Flaco HEALTH 350.1.13.10 i ty of [place] 4.2.7.2.686 [place] TOÑO?BLEA [phone] [facility] [address] MEDICAL OFFICE [facility] 2021-11-09 2021-11-09 Outpatient Farzana MIXON [facility] [id number] Univers 10:30:00 10:30:00 CELINA lechuga [facility] 2021-10-25 2021-10-25 Urgent Ileana Medrano [facility] 1.2.840.114 [id number] Univers 13:20:00 13:20:00 Care Oliver, [facility] 350.1.13.10 ity of [place] 4.2.7.2.686 [place] TOÑO?BLEA [id number] [address] MEDICAL OFFICE [facility] 2021-10-25 2021-10-25 Outpatient Farzana MEDRANO [facility] [id number] Univers 13:20:00 12:47:59 ILEANA lechuga [facility] 2021-10-25 2021-10-25 Patient Juan [facility] 1.2.840.114 [id number] Univers 00:00:00 00:00:00 Secure Msg Vijay HEALTH 350.1.13.10 ity of [place] 4.2.7.2.686 [place] TOÑO?BLEA [id number] [address] OFFICE [facility] 2021-10-25 2021-10-25 Telephone Juan [facility] 1.2.210.374 [id number] Univers 00:00:00 00:00:00 Vijay HEALTH 350.1.13.10 it y of [place] 4.2.7.2.686 [place] TOÑO?BLEA [id number] [facility] [address] [facility] OFFICE [facility] 2021-10-25 2021-10-25 Telephone Rina [facility] 1.2.840.114 [id number] Univers 00:00:00 00:00:00 Ang Db HEALTH 350.1.13.10 it y of [facility] [place] 4.2.7.2.686 [place] TOÑO?BLEA [id number] [address] MEDICAL OFFICE [facility] 2021-10-25 2021-10-25 Telephone Nurse, Filippo [facility] 1.2.840.114 [id number] Univers 00:00:00 00:00:00 Db Urgent HEALTH 350.1.13.10 ity of [facility] 4.2.7.2.686 [place] TOÑO?BLEA [id number] [address] MEDICAL OFFICE [facility] 2021-10-24 2021-10-24 Outpatient Farzana OMALLEY [facility] [id number] Univers 10:15:00 10:15:00 [facility] 2021-10-24 2021-10-24 Outpatient Farzana OMALLEY [facility] [id number] Univers 10:15:00 10:15:00 [facility] 2021-10-11 2021-10-11 Outpatient R LYSSA [facility] [id number] Univers 09:30:00 09:30:00 [facility] 2021-10-10 2021-10-10 Outpatient Farzana VARGAS PRASANNA [facility] [id number] Univers 13:30:00 13:30:00 ity [facility] 2021-10-10 2021-10-10 Outpatient R [facility] [id number] Univers 13:30:00 13:30:00 ity [facility] 2021-10-10 2021-10-10 Outpatient R ALICIA [facility] [id number] Univers 13:30:00 13:30:00 ity [facility] 2021-10-10 2021-10-10 Outpatient R ALICIA PRASANNA [facility] [id number] Univers 13:30:00 13:30:00 ity [facility] 2021-10-10 2021-10-10 Outpatient Farzana VARGAS PRASANNA [facility] [id number] Univers 13:30:00 13:30:00 ity [facility] 2021-10-10 2021-10-10 Outpatient R ALICIA [facility] [id number] Univers 13:30:00 13:30:00 ity [facility] 2021-10-102021-10-10 Outpatient R PRASANNA VARGAS [facility] [id number] Univers 13:30:00 13:30:00 ity of [facility] 2021-10-05 2021-10-05 Patient Robb [facility] 1.2.840.114 [id number] Univers 00:00:00 00:00:00 Secure Msg Kendal Amaral HEALTH 350.1.13.10 ity of [place] 4.2.7.2.686 [place] TOÑO?BLEA [id number] [address] MEDICAL OFFICE [facility] 2021-10-05 2021-10-05 Patient Robb [facility] 1.2.840.114 [id number] Univers 00:00:00 00:00:00 Secure Msg Kendal Amaral HEALTH 350.1.13.10 ity of [place] 4.2.7.2.686 [place] TOÑO?BLEA [id number] [address] OFFICE [facility] 2021-10-04 2021-10-04 Pre Visit HILARIO Rodriguez 1.2.079.190 [id number] Univers 00:00:00 00:00:00 Outreach Melia OMER 350.1.13.10 [place] of [place].2.[place] [id number] [facility] [address] 2021-09-28 2021-09-28 Office [facility] 1.2.840.114 [id number] Univers 13:30:00 13:45:00 Visit Celina SAM 350.1.13.10 ity of [place] 4.2.7.2.686 [place] [id number] [facility] [address] 2021-09-28 2021-09-28 Outpatient R APURVA [facility] [id number] Univers 13:30:00 13:30:00 CELINA lechuga [facility] 2021-09-28 2021-09-28 Outpatient R APURVA [facility] [id number] Univers 13:30:00 13:30:00 CELINA lechuga [facility] 2021-09-28 2021-09-28 Patient [facility] 1.2.840.114 [id number] Univers 00:00:00 00:00:00 Secure Msg Celina WATERSY 350.1.13.10 ity of [facility] 4.2.7.2.686 [place] [phone] [address] 2021-09-27 2021-09-27 Outpatient R DEYVI [facility] [id number] Univers 14:00:00 14:00:00 TETO [facility] 2021-09-27 2021-09-27 [facility] [id number] Univers 09:30:00 09:30:00 [facility] 2021-09-27 2021-09-27 [facility] [id number] Univers 09:30:00 09:30:00 [facility] 2021-09-27 2021-09-27 [facility] [id number] Univers 09:30:00 09:30:00 [facility] 2021-09-26 2021-09-26 Outpatient R AKINEVENSPE, [facility] [id number] Univers 10:45:00 10:45:00 CRICKETEMILIO lechuga [facility] 2021-09-26 2021-09-26 Outpatient R AKINSIPE, [facility] [id number] Univers 10:45:00 10:45:00 CRICKET maradiagay o [facility] 2021-09-26 2021-09-26 [facility] 1..840.114 [id number] Univers 00:00:00 00:00:00 Secure Msg Vijay HEALTH 350.1.13.10 ity of [facility] 4.2.7.2.686 [place] TOÑO?BLEA [id number] [address] MEDICAL OFFICE BUILDING 2021-09-26 2021-09-26 Patient Juan [facility] 1.2.840.114 [id number] Univers 00:00:00 00:00:00 Secure Msg Vijay HEALTH 350.1.13.10 ity of [place] 4.2.7.2.686 [place] TOÑO?BLEA [id number] Me dicaliyah [facility] [address] [facility] OFFICE [facility] 2021-09-25 2021-09-25 Urgent Flaco Boyd [facility] 1.2.840. 114 [id number] Univers 10:20:00 11:10:42 Care Mitchell [facility] 350.1.13.10 ity of [place] 4.2.7.2.686 [place] TOÑO?BLEA [id number] [facility] [address] [facility] OFFICE [facility] 2021-09-25 2021-09-25 Outpatient R [facility] [id number] Univers 10:20:00 11:10:42 [facility] o [facility] 2021-09-25 2021-09-25 Outpatient R [facility] [id number] Univers 10:20:00 10:20:00 [facility] o [facility] 2021-09-25 2021-09-25 Outpatient R PRASANNA VARGAS [facility] [id number] Univers 10:00:00 10:00:00 ity of [facility] 2021-09-25 2021-09-25 Telephone [facility] 1.2.840.114 [id number] Univers 00:00:00 00:00:00 [facility] 350.1.13.10 i ty of [place] 4.2.7.2.686 [place] TOÑO?BLEA [phone] [address] OFFICE [facility] 2021-09-25 2021-09-25 Patient Prasanna Vargas [facility] 1.2.700.524 [id number] Univers 00:00:00 00:00:00 Secure Msg Cam [place] 350.1.13.10 ity of [place] 4.2.7.2.686 [place] [id number] [facility] [address] [facility] 2021-09-25 2021-09-25 Telephone [employer] 1.2.840.114 [id number] Univers 00:00:00 00:00:00 Cricket C CONTROL ROOM 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 350.1.13.10 ity of [facility] 4.2.7.2.686 [place] as MATERNAL [phone] Med ical & CHILD [address] [place] [address] 2021-09-25 2021-09-25 Telephone Apurva [facility] 1.2.019.994 [id number] Univers 00:00:00 00:00:00 Celina SAM 350.1.13.10 ity of [facility] 4.2.7.2.686 [place] [phone] [address] 2021-09-15 2021-09-15 [facility] 1.2.840.114 [id number] Univers 00:00:00 00:00:00 Secure Msg Kendal Munir HEALTH 350.1.13.10 ity of [place] 4.2.7.2.686 [place] TOÑO?BLEA [id number] [address] OFFICE [facility] 2021-09-15 2021-09-15 [facility] 1.2.840.114 [id number] Univers 00:00:00 00:00:00 Secure Msg Kendal Amaral HEALTH 350.1.13.10 ity of [place] 4.2.7.2.686 [place] TOÑO?BLEA [id number] [address] OFFICE [facility] 2021-09-15 2021-09-15 Patient Robb [facility] 1.2.840.114 [id number] Univers 00:00:00 00:00:00 Secure Msg Kendal Amaral HEALTH 350.1.13.10 ity of [place] 4.2.7.2.686 [place] TOÑO?BLEA [id number] [address] MEDICAL OFFICE [facility] 2021-09-14 2021-09-14 Patient Juan [facility] 1.2.840.114 [id number] Univers 00:00:00 00:00:00 Secure Msg Vijay HEALTH 350.1.13.10 ity of [place] 4.2.7.2.686 [place] TOÑO?BLEA [id number] [address] OFFICE [facility] 2021-09-12 2021-09-12 [facility] [id number] Univers 10:30:00 10:30:00 CELINA lechuga [facility] 2021-09-12 2021-09-12 Outpatient R APURVA [facility] [id number] Univers 10:30:00 10:30:00 CELINA hirenchino [facility] 2021-09-12 2021-09-12 Patient Meet [facility] 1.2.840.114 [id number] Univers 00:00:00 00:00:00 Secure Msg Daniel MULTISPEC 350.1.13.10 ity of [place] 4.2.7.2.686 [place] [facility] [id number] [facility] AND [address] [facility] 2021-09-12 2021-09-12 Orders Doctor JORDAN 1.2.840.114 [id number] Univers 00:00:00 00:00:00 Only Unassigned, YAZMIN 350.1.13.10 [place]y [facility] 4.2.7.2.686 [place] as [phone] [facility] [address] 2021-09-12 2021-09-12 Patient Juan [facility] 1.2.840.114 [id number] Univers 00:00:00 00:00:00 Secure Msg Vijay HEALTH 350.1.13.10 ity of [place] 4.2.7.2.686 [place] as TOÑO?BLEA 636.6884981 Ct whit [address] MEDICAL OFFICE [facility] 2021-09-05 2021-09-05 Patient Juan [facility] 1.2.840.114 [id number] Univers 00:00:00 00:00:00 Secure Msg Vijay HEALTH 350.1.13.10 ity of [place] 4.2.7.2.686 [place] as TOÑO?BLEA [phone] Ct whit [address] MEDICAL OFFICE BUILDING 2021-09-04 2021-09-04 Patient Juan [facility] 1.2.840.114 [id number] Univers 00:00:00 00:00:00 Secure Msg Vijay HEALTH 350.1.13.10 ity of [place] 4.2.7.2.686 [place] as TOÑO?BLEA [phone] [address] MEDICAL OFFICE BUILDING 2021-08-25 2021-08-25 Telephone Aditi [facility] 1.2.840.114 [id number] Univers 00:00:00 00:00:00 Dania L HEALTH 350.1.13.10 it y of [place] 4.2.7.2.686 [place] as TOÑO?BLEA [id number] Ct whit [place] [address] MEDICAL OFFICE [facility] 2021-08-25 2021-08-25 Patient Juan [facility] 1.2.840.114 [id number] Univers 00:00:00 00:00:00 Secure Msg Vijay HEALTH 350.1.13.10 ity of [place] 4.2.7.2.686 [place] as TOÑO?BLEA [id number] Ct whit [place] [address] [facility] OFFICE [facility] 2021-08-24 2021-08-24 Telephone Juan [facility] 1.2.104.670 [id number] Univers 00:00:00 00:00:00 Vijay HEALTH 350.1.13.10 it y of [place] 4.2.7.2.686 [place] as TOÑO?BLEA [phone] Ct whit [place] [address] [facility] OFFICE [facility] 2021-08-24 2021-08-24 Patient Juan [facility] 1.2.840.114 [id number] Univers 00:00:00 00:00:00 Secure Msg Vijay HEALTH 350.1.13.10 ity of [place] 4.2.7.2.686 [place] as TOÑO?BLEA [phone] Ct whit [place] [address] [place] [address] OFFICE [facility] 2021-08-23 2021-08-23 Patient Juan [facility] 1.2.840.114 [id number] Univers 00:00:00 00:00:00 Secure Msg Vijay HEALTH 350.1.13.10 ity of [place] 4.2.7.2.686 [place] as TOÑO?BLEA [phone] Ct whit [place] [address] [place] [address] OFFICE [facility] 2021-08-23 2021-08-23 Telephone Juan [facility] [id number] Univers 00:00:00 00:00:00 Vijay HEALTH 350.1.13.10 it y of [place] 4.2.7.2.686 Martin as TOÑO?BLEA [phone] Me whit [place] [address] [place] [address] OFFICE [facility] 2021-08-22 2021-08-22 [facility] [id number] Univers 00:00:00 00:00:00 Vijay HEALTH 350.1.13.10 it y of [place] 4.2.7.2.686 Martin as TOÑO?BLEA [phone] Ct whit [address] OFFICE [facility] 2021-08-22 2021-08-22 Patient Jaja [facility] [id number] Univers 00:00:00 00:00:00 Secure Msg Hallie HEALTH 350.1.13.10 [facility] 4.2.7.2.686 Martin as TOÑO?BLEA [phone] Ct whit [address] OFFICE [facility] 2021-08-18 2021-08-18 [facility] [id number] Univers 00:00:00 00:00:00 Vijay HEALTH 350.1.13.10 it y of [place] 4.2.7.2.686 Martin as TOÑO?BLEA [phone] Ct whit [address] 2021-08-17 2021-08-17 Outpatient Fazrana MIXON [facility] [id number] Univers 09:00:00 09:00:00 CELINA itchino [facility] 2021-08-17 2021-08-17 Outpatient Farzana MIXON [facility] [id number] Univers 09:00:00 09:00:00 CELINA ankush [facility] 2021-08-16 2021-08-16 [facility] [id number] Univers 00:00:00 00:00:00 Secure Msg Vijay HEALTH 350.1.13.10 [facility] 4.2.7.2.686 Martin as TOÑO?BLEA [phone] Ct whit [address] OFFICE [facility] 2021-08-15 2021-08-15 Office [facility] [id number] Univers 15:30:00 16:16:42 Visit [facility] 350.1.13.10 it y of [place] 4.2.7.2.686 Martin as TOÑO?BLEA [phone] Ct whit [address] MEDICAL OFFICE BUILDING 2021-08-15 2021-08-15 Outpatient Farzana KIM [facility] [id number] Univers 15:30:00 16:16:42 [facility] 2021-08-15 2021-08-15 Outpatient Farzana KIM [facility] [id number] Univers 15:30:00 15:30:00 [facility] 2021-08-15 2021-08-15 Outpatient Farzana KIM [facility] [id number] Univers 15:30:00 15:30:00 [facility] 2021-08-15 2021-08-15 [id number] Univers 15:30:00 15:30:00 [facility] 2021-08-15 2021-08-15 [facility] [id number] Univers 09:27:00 12:26:00 MAURA lechuga [facility] 2021-08-15 2021-08-15 Emergency [facility] 1.2.063.853 [id number] Univers 09:27:00 12:26:00 Maura LAWSON 350.1.13.10 ity [facility] 4.2.7.2.686 [facility] [phone] [address] 2021-08-15 2021-08-15 Emergency Aj [facility] E[facility] [id number] Univers 09:27:00 12:26:00 MAURA lechuga [facility] 2021-08-14 2021-08-14 Outpatient Farzana MARTINEZ [facility] [id number] Univers 13:25:00 23:59:00 VIJAY lechuga [facility] 2021-08-14 2021-08-14 Outpatient Farzana MARTINEZ [facility] [id number] Univers 13:25:00 23:59:00 VIJAY lechuga [facility] 2021-08-14 2021-08-14 Outpatient Farzana MARTINEZ [facility] [id number] Univers 13:25:00 13:25:00 VIJAY lechuga [facility] 2021-08-14 2021-08-14 Outpatient R JUAN [facility] [id number] Univers 12:19:07 13:24:00 VIJAY lechuga [facility] 2021-08-14 2021-08-14 Outpatient R JUAN [facility] [id number] Univers 12:19:07 13:24:00 VIJAY lechuga [facility] 2021-08-14 2021-08-14 [employer], Ang [facility] 1.2.840.1 14 [id number] Univers 12:30:00 13:01:24 Visit Vijay Martinez 350.1.13.10 ity of [place] 4.2.7.2.686 Martin as TOÑO?BLEA [id number] [facility] [address] [facility] OFFICE [facility] 2021-08-14 2021-08-14 [employer] Lab, Ang - [facility] 1.2.840.1 14 [id number] Univers 12:30:00 12:45:00 Visit Vijay Martinez 350.1.13.10 ity of [place] 4.2.7.2.686 Martin as TOÑO?BLEA [id number] [facility] MOE [address] OFFICE [facility] 2021-08-14 2021-08-14 Office Juan [facility] 1.2.840.114 [id number] Univers 11:30:00 12:31:12 Visit Vijay BAILEY 350.1.13.10 it y of [place] 4.2.7.2.686 Martin as TOÑO?BLEA [id number] Ct whit [place] [address] [facility] OFFICE [facility] 2021-08-14 2021-08-14 Outpatient R JUAN [facility] [id number] Univers 11:30:00 12:31:12 VIJAY lechuga [facility] 2021-08-14 2021-08-14 Patient Juan [facility] 1.2.840.114 [id number] Univers 00:00:00 00:00:00 Secure Msg Vijay HEALTH 350.1.13.10 ity of [place] 4.2.7.2.686 Martin as TOÑO?BLEA [id number] Me whit [place] [address] MEDICAL OFFICE [facility] 2021-08-09 2021-08-09 Outpatient R JUDY [facility] [id number] Univers 14:45:00 14:45:00 ADÁN ankush [facility] 2021-08-09 2021-08-09 Telephone Víctorkathy [facility] 1.2.680.973 [id number] Univers 00:00:00 00:00:00 Vijay HEALTH 350.1.13.10 it y of [place] 4.2.7.2.686 Martin as TOÑO?BLEA [id number] Ct whit MINOR 044 [facility] 2021-08-08 2021-08-08 Outpatient R JUAN [facility] [id number] Univers 11:30:00 23:59:00 VIJAY hirenchino [facility] 2021-08-08 2021-08-08 Hospital [facility] 1.2.840.114 [id number] Univers 11:30:00 23:59:00 Encounter Vijay [facility] 350.1.13.10 ity of [place] 4.2.7.2.686 Martin as TOÑO?BLEA [phone] Ct whit [place] 808 [facility] 2021-08-08 2021-08-08 Outpatient R JUAN [facility] [id number] Univers 11:15:00 11:15:00 VIJAY hirenchino [facility] 2021-08-08 2021-08-08 Outpatient R JUAN [facility] [id number] Univers 11:00:00 11:00:00 VIJAY hirenchino [facility] 2021-08-08 2021-08-08 Patient Doctor JORDAN 1.2.840.114 [id number] Univers 00:00:00 00:00:00 Secure Msg Unassigned, YAZMIN 350.1.13.10 ity of [facility] 4.2.7.2.686 Martin as [id number] [address] 2021-08-07 2021-08-07 Office Juan [facility] 1.2.840.114 [id number] Univers 09:30:00 10:23:21 Visit Vijay HEALTH 350.1.13.10 it y of [facility] 4.2.7.2.686 [place] as TOÑO?BLEA [phone] Ct whit [address] OFFICE [facility] 2021-08-07 2021-08-07 Outpatient R JUAN [facility] [id number] Univers 09:30:00 10:23:21 VIJAY lechuga [facility] 2021-08-07 2021-08-07 Outpatient R JUAN [facility] [id number] Univers 09:30:00 09:30:00 VIJAY lechuga [facility] 2021-08-07 2021-08-07 [facility] 1.2.840.114 [id number] Univers 00:00:00 00:00:00 Secure Msg Vijay HEALTH 350.1.13.10 ity of [place] 4.2.7.2.686 [place] as TOÑO?BLEA [id number] [address] 2021-08-07 2021-08-07 Patient [facility] 1.2.840.114 [id number] Univers 00:00:00 00:00:00 Secure Msg Vijay HEALTH 350.1.13.10 ity of [place] 4.2.7.2.686 [place] as TOÑO?BLEA [id number] [address] 2021-08-07 2021-08-07 Patient Apurva [facility] 1.2.840.114 [id number] Univers 00:00:00 00:00:00 Secure Msg Celina A FLACO 350.1.13.10 ity of [facility] 4.2.7.2.686 [place] [id number] [address] 2021-08-04 2021-08-04 Outpatient R SHADIA [facility] [id number] Univers 10:00:00 10:00:00 PETRA ity [facility] 2021-08-04 2021-08-04 [facility] 1.2.840.114 [id number] Univers 00:00:00 00:00:00 Secure Msg Vijay HEALTH 350.1.13.10 ity of [place] 4.2.7.2.686 [place] as TOÑO?BLEA [id number] [address] MEDICAL OFFICE BUILDING 2021-08-03 2021-08-03 Office SOURAV Diaz 1.2.840.114 [id number] Univers 11:00:00 12:48:43 Visit Jayy Y 350.1.13.10 it y of [facility] 4.2.7.2.686 Martin as BANK [id number] [facility]. [address] 2021-08-03 2021-08-03 [facility] [id number] Univers 11:00:00 12:48:43 JAYYBELKYS lechuga [facility] 2021-08-03 2021-08-03 [facility] [id number] Univers 11:00:00 11:00:00 JAYY [facility] 2021-08-03 2021-08-03 Patient Apurva [facility] 1.2.840.114 [id number] Univers 00:00:00 00:00:00 Secure Msg Celina SAM 350.1.13.10 ity of [facility] 4.2.7.2.686 [place] [id number] [address] 2021-08-02 2021-08-02 Telephone Juan [facility] 1.2.072.044 [id number] Univers 00:00:00 00:00:00 [facility] 350.1.13.10 it y of [place] 4.2.7.2.686 [place] as TOÑO?BLEA [id number] [address] MEDICAL OFFICE [facility] 2021-07-21 2021-07-21 Outpatient R DARRION WYATT [facility] [id number] Univers 08:00:00 08:52:53 DARRION WYATT itchino [facility] 2021-07-17 2021-07-17 Outpatient R JUAN [facility] [id number] Univers 11:30:00 11:30:00 VIJAY lechuga [facility] 2021-06-19 2021-06-19 Telephone [facility] 1.2.198.365 [id number] Univers 00:00:00 00:00:00 Vijay [facility] 350.1.13.10 it y of [place] 4.2.7.2.686 [place] as TOÑO?BLEA [id number] [facility] [place] [address] [facility] OFFICE [facility] 2021-06-09 2021-06-09 Telephone [facility] 1.2.468.166 [id number] Univers 00:00:00 00:00:00 Qiangraheel [place] 350.1.13.10 ity of [facility] 4.2.7.2.686 [place] [id number] Ct whit [facility] 059 [facility] 2021-06-06 2021-06-06 Out[facility] [id number] Univers 11:15:00 11:15:00 TETO [facility] 2021-06-06 2021-06-06 Outpatient [facility] [id number] Univers 11:15:00 11:15:00 [facility] 2021-06-02 2021-06-02 Outpatient [facility] [id number] Univers 15:45:00 15:45:00 WONDIFUL ity o f [facility] 2021-05-31 2021-05-31 [facility] [id number] Univers 10:00:00 10:46:31 VIJAY chino [facility] 2021-05-31 2021-05-31 Office [facility] ..840.114 [id number] Univers 10:00:00 10:46:31 Visit [facility] 350.1.13.10 it y of [place] 4.2.7.2.686 [place] TOÑO?BLEA [id number] [address] OFFICE [facility] 2021-05-31 2021-05-31 Out[facility] [id number] Univers 10:00:00 10:46:31 VIJAY chino [facility] 2021-05-31 2021-05-31 Orders Doctor ORTEGA 1.2.840.114 [id number] Univers 00:00:00 00:00:00 Only Unassigned, YAZMIN 350.1.13.10 ity of [place] [facility] 4.2.7.2.686 Martin as [phone] [address] 2021-05-26 2021-05-26 Telephone Yaneli [facility] 1.2.179.987 [id number] Univers 00:00:00 00:00:00 Skylar A HEALTH 350.1.13.10 i ty of [facility] 4.2.7.2.686 [place] as TOÑO?BLEA [id number] [facility] [address] [facility] OFFICE [facility] 2021-05-26 2021-05-26 Patient Prasanna Vargas [facility] 1.2.764.898 [id number] Univers 00:00:00 00:00:00 Secure Msg Cam LULU 350.1.13.10 ity of [place].2.7.2.[place] [id number] [facility] 134 [facility] 2021-05-25 2021-05-25 Telemedici [facility] 1.2.840.114 [id number] Univers 14:00:00 14:30:00 ne Visit Skylar Cannon HEALTH 350.1.13.10 ity of [place] 4.2.7.2.686 [place] as TOÑO?BLEA [id number] [address] 2021-05-25 2021-05-25 Outpatient [facility] [id number] Univers 14:00:00 14:00:00 SKYLAR hirenchino [facility] 2021-05-25 2021-05-25 Out[facility] [id number] Univers 14:00:00 14:00:00 SKYLAR ity [facility] 2021-05-24 2021-05-24 Telephone [facility] 1.2.822.494 [id number] Univers 00:00:00 00:00:00 Sendil Cuate [place] 350.1.13.10 ity of [facility] 4.2.7.2.[place] [id number] [facility] 059 [facility] 2021-05-23 2021-05-23 Outpatient R [facility] [id number] Univers 10:00:00 10:00:00 ity of [facility] 2021-05-23 2021-05-23 Outpatient R [facility] [id number] Univers 10:00:00 10:00:00 ity [facility] 2021-05-16 2021-05-16 Outpatient R DEYVI, [facility] [id number] Univers 09:00:00 09:00:00 TETO ity [facility] 2021-05-12 2021-05-12 Orders Doctor JORDAN 1.2.840.114 [id number] Univers 00:00:00 00:00:00 Only Unassigned, YAZMIN 350.1.13.10 ity of [facility] 4.2.7.2.686 Martin as [id number] [address] 2021-05-10 2021-05-10 Outpatient [facility] [id number] Univers 13:00:00 13:00:00 WONDIFUL ity o f [facility] 2021-05-10 2021-05-10 Outpatient [facility] [id number] Univers 13:00:00 13:00:00 WONDIFUL ity o f [facility] 2021-05-09 2021-05-09 Telephone Prasanna Vargas [facility] 1.2.840.114 [id number] Univers 00:00:00 00:00:00 Cam LULU 350.1.13.10 i ty of [place].2.7.2.686 [place] [id number] Ct dical NAL 134 [facility] 2021-05-09 2021-05-09 Patient [facility] 1.2.840.114 [id number] Univers 00:00:00 00:00:00 Secure Mslaila LAWSON 350.1.13.10 ity of [facility] 4.2.7.2.686 [place] [phone] Ct dical NAL 059 [facility] 2021-05-08 2021-05-08 Outpatient [facility] [id number] Univers 16:00:00 16:00:00 JE lechuga [facility] 2021-05-08 2021-05-08 Outpatient R YASMEEN [facility] [id number] Univers 16:00:00 16:00:00 JEDAYANA lechuga [facility] 2021-05-08 2021-05-08 [facility] 1.2.840.114 [id number] Univers 00:00:00 00:00:00 Secure Msg Rad LAWSON 350.1.13.10 ity of [facility] 4.2.7.2.686 [place] [id number] Ct dical NAL 059 [facility] 2021-05-08 2021-05-08 Patient [facility] 1.2.840.114 [id number] Univers 00:00:00 00:00:00 Secure Msg Rad LAWSON 350.1.13.10 ity of [facility] 4.2.7.2.686 [place] [id number] Ct dical NAL 059 [facility] 2021-05-03 2021-05-03 Outpatient R [facility] [id number] Univers 11:15:36 23:59:00 REJI lechuga o f [facility] 2021-05-03 2021-05-03 [facility] 1.2.840.114 [id number] Univers 11:15:36 23:59:00 Encounter Reji LAWSON 350.1.13.10 ity of [place] 4.2.7.2.686 [place] [id number] Ct dical NAL 846 [facility] 2021-05-03 2021-05-03 Telephone [facility] 1.2.840.114 [id number] Univers 00:00:00 00:00:00 Wondiful A HEALTH 350.1.13.10 ity of [place] 4.2.7.2.686 [place] as TOÑO?BLEA [id number] Ct dical KNEY 044 [facility] 2021-05-02 2021-05-02 Telephone [facility] 1.2.417.379 [id number] Univers 00:00:00 00:00:00 Sendzohra LAWSON 350.1.13.10 ity of [place] 4.2.7.2.686 [place] [phone] [place] [id number] [facility] 2021-05-02 2021-05-02 Patient Cristina [facility] 1.2.840.114 [id number] Univers 00:00:00 00:00:00 Secure Msg Wondiful A HEALTH 350.1.13.10 ity of [facility] 4.2.7.2.686 [place] as TOÑO?BLEA [id number] [address] OFFICE [facility] 2021-05-02 2021-05-02 Telephone Cristina [facility] 1.2.840.114 [id number] Univers 00:00:00 00:00:00 Wondiful A HEALTH 350.1.13.10 ity of [facility] 4.2.7.2.686 [place] as TOÑO?BLEA [id number] [address] OFFICE [facility] 2021-05-02 2021-05-02 Patient Ponce, [facility] 1.2.840.114 [id number] Univers 00:00:00 00:00:00 Secure Msg Rad LAW[place] 350.1.13.10 ity of [facility] 4.2.7.2.686 [place] [id number] [address] 2021-04-27 2021-04-27 Emergency X [facility]OMIN[facility] ERT [id number] Univers 14:24:00 15:49:00 MAGGIE itchino of [facility] 2021-04-27 2021-04-27 Emergency Alfonso [facility] 1.2.840.114 [id number] Univers 14:24:00 15:49:00 Maggie LAWSON 350.1.13.10 ity of [facility] 4.2.7.2.686 [place] [id number] [address] 2021-04-27 2021-04-27 Laboratory Only, Ang Db Test [facility] 1.2.8 40.114 [id number] Univers 11:15:00 11:30:00 Only Unknown, Attending HEALTH 350.1.13.10 ity of [place] 4.2.7.2.686 [place] TOÑO?BLEA [id number] [facility] [place] [address] [facility] OFFICE [facility] 2021-04-27 2021-04-27 Outpatient R ELIZABETH [facility] [id number] Univers 11:15:00 11:15:00 RANJOSE ity of [facility] 2021-04-27 2021-04-27 Orders Doctor JORDAN 1.2.840.114 [id number] Univers 00:00:00 00:00:00 Only Unassigned, YAZMIN 350.1.13.10 ity of [place] [facility] 4.2.7.2.686 [place] as [id number] [address] 2021-04-20 2021-04-20 Outpatient R JUSTINE [facility] [id number] Univers 15:00:00 15:00:00 SCOTT ity of [facility] 2021-04-13 2021-04-13 Patient [facility] 1.2.840.114 [id number] Univers 00:00:00 00:00:00 Secure Msg Wondiful A HEALTH 350.1.13.10 ity of [facility] 4.2.7.2.686 [place] as TOÑO?BLEA [phone] Ct dicaliyah [place] [address] [facility] OFFICE [facility] 2021-04-12 2021-04-12 Telephone Cristina [facility] 1.2.840.114 [id number] Univers 00:00:00 00:00:00 Wondiful A HEALTH 350.1.13.10 ity of [facility] 4.2.7.2.686 [place] as TOÑO?BLEA [id number] Ct dicaliyah [place] [address] [facility] OFFICE [facility] 2021-03-27 2021-03-27 Telephone Prasanna Vargas [facility] 1.2.840.114 [id number] Univers 00:00:00 00:00:00 Cam [place] 350.1.13.10 i ty of [place]2.7.2.[place] [id number] Ct whit [facility] 134 [facility] 2021-03-23 2021-03-23 Outpatient R KAVYA [facility] [id number] Univers 13:30:00 13:30:00 CHILVANA ity o f [facility] 2021-03-23 2021-03-23 Outpatient R KAVYA [facility] [id number] Univers 13:30:00 13:30:00 CHILVANA ity o f [facility] 2021-03-22 2021-03-22 Outpatient R NEHEMIAH MEEKSMSEz [facility] [id number] Univers 09:20:00 09:20:00 ATAADITYA BRAGA itchino [facility] 2021-03-22 2021-03-22 Outpatient R [facility] [id number] Univers 09:20:00 09:20:00 JEANNA [facility] chino [facility] 2021-03-20 2021-03-20 Outpatient R CRISTINA [facility] [id number] Univers 00:00:00 00:00:00 WONDIFUL ity o [facility] 2021-03-18 2021-03-18 Donal[facility] 1.2.840.114 [id number] Univers 00:00:00 00:00:00 Management Wondiful A HEALTH 350.1.13.10 ity of [place] 4.2.7.2.686 [place] as TOÑO?BLEA [id number] [facility] [address] MEDICAL OFFICE [facility] 2021-03-16 2021-03-16 [employer] Lab, Ang - [facility] 1.2.840.1 14 [id number] Univers 11:16:07 11:31:07 Visit CristinaBrianlgbonnie A HEALTH 350.1.13.1 0 ity of [place] 4.2.7.2.686 [place] TOÑO?BLEA [phone] [facility] [address] MEDICAL OFFICE [facility] 2021-03-16 2021-03-16 Outpatient R CRISTINA [facility] [id number] Univers 11:30:00 11:30:00 WONDIFUL ity o f [facility] 2021-03-16 2021-03-16 [facility] [id number] Univers 11:00:00 11:14:45 WONDIFUL ity o f [facility] 2021-03-16 2021-03-16 Office [facility] 1.2.840.114 [id number] Univers 10:00:58 11:14:45 Visit Wondiful A HEALTH 350.1.13.10 ity of [place] 4.2.7.2.686 [place] TOÑO?BLEA [id number] [address] OFFICE [facility] 2021-03-16 2021-03-16 Patient [facility] 1.2.840.114 [id number] Univers 00:00:00 00:00:00 Secure Msg Wondiful A HEALTH 350.1.13.10 ity of [place] 4.2.7.2.686 [place] as TOÑO?BLEA [id number] [address] OFFICE [facility] 2021-03-02 2021-03-02 Outpatient [facility] [id number] Univers 16:15:00 16:15:00 WONDIFUL ity o f [facility] 2021-02-28 2021-02-28 Outpatient R MITCHELL [facility] [id number] Univers 18:30:00 18:30:00 ILEANA itchino [facility] 2021-02-28 2021-02-28 [facility] 1..840.114 [id number] Univers 00:00:00 00:00:00 Wondiful A Health 350.1.13.10 ity of [place] 4.2.7.2.686 [place] as Toño?Blea [phone] [address] Office [facility] 2021-02-27 2021-02-27 [facility] [id number] Univers 09:00:00 09:00:00 AMELIA itchino [facility] 2021-02-23 2021-02-23 Telephone [facility] 1..840.114 [id number] Univers 00:00:00 00:00:00 Wondiful A Health 350.1.13.10 ity of [place] 4.2.7.2.686 [place] as Toño?Blea [phone] Ct whit [place] [address] [facility] 2021-02-10 2021-02-10 Emergency Kaycee Méndez [facility] 1.2.840.114 [id number] Univers 18:12:00 23:39:00 Sharlene [place] 350.1.13.10 i ty of [place]2.7.2.686 [place] [phone] [facility] [address] 2021-02-09 2021-02-09 Hospital [facility] 1.2.875.554 [id number] Univers 13:40:00 23:59:00 Encounter Wondiful A Health 350.1.13.10 ity of [place] 4.2.7.2.686 [place] as Toño?Blea [id number] Ct whit [place] [address] Medical Office [facility] 2021-02-09 2021-02-09 [employer] Lab, Ang - Db [facility] 1.2.840.1 14 [id number] Univers 13:49:05 14:04:05 Visit Brian Evanslgbonnie A Health 350.1.13.1 0 ity of [place] 4.2.7.2.686 [place] as Toño?Blea [phone] Ct whit [place] [address] Medical Office [facility] 2021-02-09 2021-02-09 Office [facility] 1.2.840.114 [id number] Univers 12:23:13 13:47:12 Visit Wondiful A Health 350.1.13.10 ity of [place] 4.2.7.2.686 [place] as Toño?Blea [phone] Ct whit [place] [address] Medical Office [facility] 2021-02-09 2021-02-09 Outpatient R CRISTINA [facility] [id number] Univers 13:00:00 13:00:00 WONDIFUL ity o f [facility] 2021-02-08 2021-02-08 Outpatient R ADITYA MEEKS [facility] [id number] Univers 10:20:00 10:20:00 ADITYA MEEKS of [facility] 2021-02-02 2021-02-02 Outpatient R YANELI [facility] [id number] Univers 10:30:00 10:30:00 SKYLAR lechuga [facility] 2021-02-02 2021-02-02 Telephone [facility] 1.2.840.114 [id number] Univers 00:00:00 00:00:00 Wondiful [facility] [id number] ity of [place] [id number] Martin as Toño?Blea [phone] [facility] miki 044 [facility] 2021-02-01 2021-02-01 [facility] [id number] Univers 08:30:00 08:30:00 SKYLAR lechuga [facility] 2021-01-31 2021-01-31 Urgent [facility] [id number] Univers 18:44:04 19:41:26 Care [facility] [id number] i ty of [place] [id number] Martin as Toño?Blea [phone] [facility] miki 370 [facility] Office [facility] 2021-01-31 2021-01-31 [facility] [id number] Univers 19:00:00 19:00:00 FLACO ity o f [facility] 2021-01-31 2021-01-31 Telephone [facility] [id number] Univers 00:00:00 00:00:00 Wondiful [facility] [id number] ity of [place] [id number] Martin as Toño?Blea [phone] [facility] 2021-01-30 2021-01-30 Telephone [facility] [id number] Univers 00:00:00 00:00:00 Rad [place] [id number] [id number] [phone] [place] dical nal 059 [facility] 2021-01-26 2021-01-26 [facility] [id number] Univers 14:00:00 14:00:00 [facility]25 2021-01-25 Outpatient R [facility] [id number] Univers 15:00:00 15:00:00 ity [facility] 2021-01-20 2021-01-20 Telemedici [facility] [id number] Univers 16:51:22 17:12:41 ne Visit Skylar Bailey [id number] ity [facility] [id number] [place] as Toño?Blea [phone] [address] Medical Office Building 2021-01-20 2021-01-20 [facility] [id number] Univers 16:30:00 16:30:00 SKYLAR [facility] 2021-01-19 2021-01-19 [facility] [id number] Univers 10:15:00 10:15:00 KAYLEY [facility] 2021-01-14 2021-01-14 JORDAN Guzman 1.2.840.114 [id number] Univers 00:00:00 00:00:00 Management Kassandra ARCE [id number] ity [facility] [id number] Martin as [phone] [facility] [address] 2021-01-12 2021-01-12 Emergency [facility] [id number] Univers 16:10:00 19:45:00 Karin Lawson 350.1.13.10 i ty [facility] 4.2.7.2.686 [place] [facility] [phone] [facility] [address] 2021-01-12 2021-01-12 [facility] [id number] Univers 15:20:00 15:20:00 ILEANA [facility] 2021-01-12 2021-01-12 Urgent Elizabeth Bjjose [facility] 1.2.840.114 [id number] Univers 14:46:57 15:06:57 Ileana Beth [id number] ity of [place] 4.2.7.2.686 Martin as Toño?Blea [phone] [address] Office Building 2020-12-26 2020-12-26 Outpatient R POCNE [facility] [id number] Univers 15:30:00 16:13:32 SENDIL ity [facility] 2020-12-26 2020-12-26 [facility] 1.2.840.114 [id number] Univers 15:30:00 16:13:32 Visit Sendil Cuate LAWSON [id number] ity of [place].2.7.2.686 [place] [phone] dicmi NAL 9 [facility] 2020-12-26 2020-12-26 [facility] 1.2.840.114 [id number] Univers 15:00:32 16:13:32 Visit Sendco Cuate Lawson 350.1.13.10 ity [facility] 4.2.7.2.[place] Profess[phone] Ct dicmi nal 059 [address] [facility] 2020-12-26 2020-12-26 Outpatient R PONCE [facility] [id number] Univers 15:30:00 15:30:00 [facility] 2020-11-22 2020-11-22 Outpatient R APURVA [facility] [id number] Univers 11:00:00 11:00:00 CELINA lechuga [facility] 2020-11-10 2020-11-10 Urgent Alissa Collins [facility] 1.2.840.114 [id number] 18:42:46 19:53:43 [facility] [id number] [place] 4.2.7.2.686 Professio [phone] nal 044 Office Building One 2020-11-10 2020-11-10 Outpatient R [facility] [id number] Univers 19:00:00 19:00:00 ity of [facility] 2020-10-31 2020-10-31 Emergency Kaycee Méndez [facility] 1.2.840.114 [id number] 18:52:00 22:15:00 Sharlene Lulu [id number] [place] 4.2.7.2.686 [place] [phone] 084 2020-10-31 2020-10-31 Outpatient R NATASHA [facility] [id number] Univers 19:00:00 19:00:00 CARI lechuga o f [facility] 2020-10-31 2020-10-31 Orders Doctor JORDAN 1.2.840.114 [id number] 00:00:00 00:00:00 Only Unassigned, YAZMIN 350.1.13.10 [facility] 4.2.7.2.686 [id number] 009 2020-10-20 2020-10-20 Emergency Kaycee Méndez [facility] 1.2.840.114 [id number] 14:02:00 17:13:00 Sharlene Lawson [id number] [place] 4.2.7.2.686 [place] [id number] 084 2020-10-14 2020-10-14 Hospital Prasanna Vargas [facility] 1.2.840.114 [id number] 10:00:00 23:59:00 Encounter Jm Lawson 350.1.13.10 [place] 4.2.7.2.686 [place] [id number] 2020-10-14 2020-10-14 [facility] [id number] Univers 13:30:00 13:30:00 CELINA lechuga [facility] 2020-10-09 2020-10-09 [facility] [id number] [id number] 12:00:00 15:57:00 Anna Lawson [id number] [place] 4.2.7.2.686 [place] [id number] 084 2020-10-06 2020-10-06 Office VargasPrasanna [facility] 1.2.850.868 [id number] 08:53:00 09:46:44 Visit Jm Lawson 350.1.13.10 [place] 4.2.7.2.686 Professio [id number] [address] 2020-10-062020-10-06 Outpatient R PRASANNA VARGAS [facility] [id number] Univers 09:30:00 09:30:00 [facility] 2020-10-04 2020-10-04 Outpatient R APURVA [facility] [id number] Univers 14:00:00 14:00:00 [facility] 2020-09-30 2020-09-30 Outpatient R APURVA [facility] [id number] Univers 10:30:00 10:30:00 [facility] 2020-09-29 2020-09-29 Outpatient R JASPAL [facility] [id number] Univers 13:45:00 13:45:00 PREET [facility] 2020-09-06 2020-09-06 Outpatient R PRASANNA VARGAS [facility] [id number] Univers 15:30:00 15:30:00 [facility] 2020-09-02 2020-09-02 Outpatient R DARRION WYATT [facility] [id number] Univers 15:40:00 15:40:00 DARRION WYATT [facility] 2020-08-31 2020-08-31 Outpatient Farzana SERRA [facility] [id number] Univers 10:30:00 10:30:00 SENDIL [facility] 2020-08-18 2020-08-18 Outpatient Farzana VARGASPRASANNA [facility] [id number] Univers 09:30:00 09:30:00 [facility] 2020-08-11 2020-08-11 Outpatient Farznaa VARGASPRASANNA [facility] [id number] Univers 13:30:00 13:30:00 [facility] 2020-08-04 2020-08-04 Outpatient R JUSTINE [facility] [id number] Univers 14:00:00 14:00:00 SCOTT [facility] 2020-07-28 2020-07-28 Outpatient Farzana SERRA [facility] [id number] Univers 10:30:00 10:30:00 SENDIL [facility] 2020-06-30 2020-06-30 Outpatient R CRISTINA [facility] [id number] Univers 16:15:00 16:15:00 WONDIFUL ity o f [facility] 2020-06-17 2020-06-17 Outpatient DARRION QUIROZ [facility] [id number] Univers 15:00:00 15:00:00 DARRION WYATT [facility] 2020-06-16 2020-06-16 Outpatient Farzana SERRA [facility] [id number] Univers 15:30:00 15:30:00 [facility] 2020-06-09 2020-06-09 Outpatient R NAIFNI [facility] [id number] Univers 12:30:00 12:30:00 [facility] 2020-06-08 2020-06-08 Outpatient R NAIFNI [facility] [id number] Univers 08:00:00 08:00:00 [facility] 2020-06-02 2020-06-02 Outpatient Farzana SERRA [facility] [id number] Univers 09:00:00 09:00:00 SENDIL [facility] 2020-05-28 2020-05-28 Outpatient R NATASHA [facility] [id number] Univers 10:00:00 10:00:00 CARI ity o f [facility] 2020-05-24 2020-05-24 Outpatient R NAIFNI [facility] [id number] Univers 10:00:00 10:00:00 [facility] 2020-05-19 2020-05-19 Outpatient OSITO AMARO [facility] [id number] Univers 16:30:00 16:30:00 [facility] 2020-05-17 2020-05-17 Outpatient DARRION QUIROZ [facility] [id number] Univers 13:00:00 13:00:00 DARRION WYATT [facility] 2020-05-16 2020-05-16 Outpatient Farzana EVANS [facility] [id number] Univers 16:00:00 16:00:00 WONDIFUL ity o f [facility] 2020-05-08 2020-05-08 Emergency X DREVER, [facility] ERT [id number] Univers 10:24:00 13:03:00 OLAMIDE [facility] 2020-05-03 2020-05-03 Outpatient R CRISTINA [facility] [id number] Univers 15:00:00 15:00:00 WONDIFUL ity o f [facility] 2020-04-30 2020-05-01 Outpatient X KAVYA [facility] JOSÉ MANUEL [id number] Univers 11:14:00 15:50:00 RODRIGUEZ [facility] 2020-04-30 2020-04-30 Outpatient R JASPAL [facility] [id number] Univers 10:20:00 10:20:00 ROSALES [facility] 2020-04-30 2020-04-30 Outpatient R JASPAL [facility] [id number] Univers 10:15:00 10:15:00 [facility] 2020-04-28 2020-04-28 Outpatient R OSITO HITCHCOCK [facility] [id number] Univers 14:00:00 14:00:00 [facility] 2020-04-25 2020-04-25 Outpatient R CRISTINA, [facility] [id number] Univers 16:15:00 16:15:00 WONDIFUL ity o f [facility] 2020-04-18 2020-04-18 Outpatient R OSITO HITCHCOCK [facility] [id number] Univers 10:00:00 10:00:00 [facility] 2020-04-15 2020-04-15 Outpatient R PONCE, [facility] [id number] Univers 10:30:00 10:30:00 SENDIL [facility] 2020-04-12 2020-04-13 Outpatient X MARICRUZ DELUNA [facility] NATTY [id number] Univers 13:38:00 16:25:00 [facility] 2020-03-17 2020-03-17 Outpatient R DEYVI, [facility] [id number] Univers 16:15:00 16:15:00 TETO [facility] 2020-03-04 2020-03-04 Refill [facility] 1.2.840.114 [id number] 00:00:00 00:00:00 [facility] 350.1.13.10 [place] 4.2.7.2.686 [employer] [id number] [facility] 2020-02-25 2020-02-25 Outpatient R OSITO HITCHCOCK [facility] [id number] Univers 16:00:00 16:00:00 [facility] 2020 Outpatient R DEYVI [facility] [id number] Univers 14:00:00 14:00:00 [facility] 2020-02-08 2020-02-08 Outpatient R ALICIAPRASANNA [facility] [id number] Univers 10:30:00 10:30:00 [facility] 2020-02-04 2020-02-04 Outpatient R OSITO HITCHCOCK [facility] [id number] Univers 13:30:00 13:30:00 [facility] 2020-01-23 2020-01-23 Outpatient R [facility] [id number] Univers 10:15:00 10:15:00 [facility] 2020-01-21 2020-01-21 Outpatient R OSITO HITCHCOCK [facility] [id number] Univers 13:00:00 13:00:00 [facility] 2020-01-14 2020-01-14 Outpatient R OSITO HITCHCOCK [facility] [id number] Univers 16:00:00 16:00:00 [facility] 2020-01-05 2020-01-05 Outpatient R PRASANNA VARGAS [facility] [id number] Univers 13:45:00 13:45:00 [facility] 2019-12-03 2019-12-03 Outpatient R AKINSIPE, [facility] [id number] Univers 10:30:00 10:30:00 CRICKET lechuga o f [facility] 2019-11-27 2019-11-27 Outpatient R DEYVI [facility] [id number] Univers 11:00:00 [facility]:00[facility] 2019-11-25 Outpatient R DEYVI [facility] [id number] Univers 08:00:00 08:00:00 TETO [facility] 2019-11-18 2019-11-18 Outpatient R VANAPHAN, [facility] [id number] Univers 10:00:00 10:00:[facility] 2019-09-02 2019-09-02 Outpatient R AKINSIPE, [facility] [id number] Univers 11:00:00 11:00:00 CRICKET ity o f [facility] 2019-08-14 2019-08-14 Outpatient R VANAPHAN, [facility] [id number] Univers 10:15:00 10:15:00 TETO [facility] 2019-08-13 2019-08-13 Outpatient R AKINSIPE, [facility] [id number] Univers 11:00:00 11:00:00 CRICKET lechuga o f [facility] 2019-08-12 2019-08-12 Outpatient R [facility] [id number] Univers 09:00:00 09:00:00 [facility] 2019-07-20 2019-07-20 Outpatient P PRASANNA VARGAS [facility] CHRIS [id number] Univers 16:06:00 16:06:00 [facility] 2019-07-20 2019-07-20 Outpatient R AKINSIPE, [facility] [id number] Univers 08:15:00 08:15:00 CRICKET lechuga o f [facility] 2019-07-13 2019-07-13 Outpatient R AKINSIPE, [facility] [id number] Univers 08:00:00 08:00:00 CRICKET ity o f [facility] 2019-07-12 2019-07-12 Outpatient P PRASANNA VARGAS [facility] CHRIS [id number] Univers 13:39:00 13:39:00 [facility] 2019-07-06 2019-07-06 Outpatient R AKINSIPE, [facility] [id number] Univers 13:00:00 13:00:00 CRICKET maradiagay o f [facility] 2019-06-13 2019-06-13 Emergency X LAURENLEROYSAHRA, [facility] ERT [id number] Univers 10:40:46 12:35:00 SARAHI [facility] 2019-05-13 2019-05-14 Outpatient P PRASANNA VARGAS [facility] CHRIS [id number] Univers 23:07:00 09:15:00 [facility] Results Test Description Test Time Test Comments Results Result Comments Source TEST, SERUM 2022-08-01 00:23:34 Test Item Value Reference Range Interpretation Comme nts PREG SERUM (test code = 2714153111) Negative WESLEY (test code = WESLEY) Less than 10 IU/L. ?If low titer or ectopic is suspected, resubmit specimen in 48-72 hours. [facility] METABOLIC PANEL ([id number])2022-07-31 23:58:12 Test Item Value Reference Range Interpretation Comments NA (test code = 140 mmol/L 135-145 0856070271) K (test code = 3.6 mmol/L 3.5-5.0 0620963804) CL (test code = 106 mmol/L 98-108 2289196918) CO2 TOTAL (test code = 21 mmol/L 23-31 L 9238988622) AGAP (test code = 13 2-16 0703918158) BUN (test code = 8 mg/dL 7-23 6657276803) GLUCOSE (test code = 90 mg/dL 70-110 4280859515) CREATININE (test code = 0.90 mg/dL 0.50-1.04 3332438728) TOTAL BILI (test code = 0.5 mg/dL 0.1-1.0 3060927793) CALCIUM (test code = 9.0 mg/dL 8.6-10.6 5979860394) T PROTEIN (test code = 7.8 g/dL 6.3-8.2 3384715783) ALBUMIN (test code = 4.6 g/dL 3.5-5.0 7281818608) ALK PHOS (test code = 63 U/L 34-122 6934579709) ALTv (test code = 23 U/L 5-35 1742-6) AST(SGOT) (test code = 27 U/L 13-40 8213617208) eGFR (test code = 75.1 mL/min/1.73m2 9320804272) WESLEY (test code = WESLEY) Association of [...] tests). Lab Interpretation Abnormal (test code = 29272-8) [facility] HospitalLIPASE2023-03-21 23:57:32 Test Item Value Reference Range Interpretation Comments LIPASE (test code = 4019621527) 55 U/L 0-220 Lab Interpretation (test code = Normal 89883-3) [facility] HospitalCB WITH [id number] 23:47:31 Test Item Value Reference Range Interpretation Comments WBC (test code = 5.64 See_Comment [Automated 9567-2) message] The sy stem which generated this result transmitted reference range : 4.30 - 11.10 10*3/?L. The reference range was not used to interpret this result as normal/abnormal . RBC (test code = 4.51 See_Comment [Automated 327-9) message] The sy stem which generated this [...] RDW-SD (test code = 42.5 fL 39.0-49.9 78771-8) RDW-CV (test code = 13.0 % 12.0-15.5 788-0) PLT (test code = 339 See_Comment [Automated 777-3) message] The sy stem which generated this result transmitted reference range : 166 - 358 10*3/ ?L. The reference r david was not used to interpret this result as normal/abnormal . MPV (test code = 9.4 fL 9.5-12.9 L 22955-4) NRBC/100 WBC (test 0.0 See_Comment [Automat ed code = 2121557950) message] The system which generated this result transmitted reference range : 0.0 - 10.0 /100 WBCs. The refer ence range was not u sed to interpret th is result as normal/abnormal . NRBC x10^3 (test code See_Comment [Auto mated = 4586402774) message] The s ystem which generated this result transmitted reference range : 10*3/?L. The reference range was not used to interpret this result as normal/abnormal . GRAN MAT (NEUT) % 51.2 % (test code = 770-8) IMM GRAN % (test code 0.20 % = 3111866721) LYMPH % (test code = 36.5 % 736-9) MONO % (test code = 5.7 % 5905-5) EOS % (test code = 5.9 % 713-8) BASO % (test code = 0.5 % 706-2) GRAN MAT x10^3(ANC) 2.89 10*3/uL 1.88-7.09 (test code = 4406988828) IMM GRAN x10^3 (test 0.00-0.06 code = 9090641507) LYMPH x10^3 (test code 2.06 10*3/uL 1.32-3.29 = 731-0) MONO x10^3 (test code 0.32 10*3/uL 0.33-0.92 L = 742-7) EOS x10^3 (test code = 0.33 10*3/uL 0.03-0.39 711-2) BASO x10^3 (test code 0.03 10*3/uL 0.01-0.07 = 704-7) Lab Interpretation Abnormal (test code = 41149-0) [facility] HospitalPOCT MOLECULAR [id number] 16:14:38 Test Item Value Reference Range Interpretation Comments POCT Molecular Strep (test code = Negative Negative 51313-0) Lab Interpretation (test code = Normal 02603-6) [facility]. METABOLIC PANEL ([id number])2022-05-05 19:35:37 Test Item Value Reference Range Interpretation Comments NA (test code = 139 mmol/L 135-145 1313349695) K (test code = 4.4 mmol/L 3.5-5.0 6356214643) CL (test code = 104 mmol/L 98-108 4565037296) CO2 TOTAL (test code = 22 mmol/L 23-31 L 5670925488) AGAP (test code = 2-16 8604307709) BUN (test code = 11 mg/dL 7-23 9507767125) GLUCOSE (test code = 95 mg/dL 70-110 2379680827) CREATININE (test code = 0.71 mg/dL 0.50-1.04 2875393453) TOTAL BILI (test code = 0.4 mg/dL 0.1-1.3 8393000716) CALCIUM (test code = 9.1 mg/dL 8.6-10.6 2108865980) T PROTEIN (test code = 7.9 g/dL 6.3-8.2 7581473697) ALBUMIN (test code = 4.7 g/dL 3.5-5.0 4790130283) ALK PHOS (test code = 114 U/L 34-122 3926744510) ALTv (test code = 21 U/L 5-35 1742-6) AST(SGOT) (test code = 21 U/L 13-40 2764584021) eGFR (test code = mL/min/1.73m2 4660941528) WESLEY (test code = WESLEY) Association of [...] tests). Lab Interpretation Abnormal (test code = 86345-9) [facility] WITH [id number] 19:25:37 Test Item Value Reference Range Interpretation Comments WBC (test code = See_Comment [Automated 7251-2) message] The sy stem which generated this result transmitted reference range : 4.30 - 11.10 10*3/?L. The reference range was not used to interpret this result as normal/abnormal . RBC (test code = See_Comment [Automated 552-5) message] The sy stem which generated this [...] RDW-SD (test code = 41.7 fL 39.0-49.9 16155-1) RDW-CV (test code = 12.7 % 12.0-15.5 788-0) PLT (test code = See_Comment H [Automated 777-3) message] The sy stem which generated this result transmitted reference range : 166 - 358 10*3/ ?L. The reference r david was not used to interpret this result as normal/abnormal . MPV (test code = 8.8 fL 9.5-12.9 L 53818-3) NRBC/100 WBC (test See_Comment [Automat ed code = 1193721228) message] The system which generated this result transmitted reference range : 0.0 - 10.0 /100 WBCs. The refer ence range was not u sed to interpret th is result as normal/abnormal . NRBC x10^3 (test code See_Comment [Auto mated = 2627194667) message] The s ystem which generated this result transmitted reference range : 10*3/?L. The reference range was not used to interpret this result as normal/abnormal . GRAN MAT (NEUT) % 56.1 % (test code = 770-8) IMM GRAN % (test code 0.40 % = 3403355693) LYMPH % (test code = 29.9 % 736-9) MONO % (test code = 5.4 % 5905-5) EOS % (test code = 7.8 % 713-8) BASO % (test code = 0.4 % 706-2) GRAN MAT x10^3(ANC) 3.75 10*3/uL 1.88-7.09 (test code = 4866669800) IMM GRAN x10^3 (test 0.03 10*3/uL 0.00-0.06 code = 5276807100) LYMPH x10^3 (test code 2.00 10*3/uL 1.32-3.29 = 731-0) MONO x10^3 (test code 0.36 10*3/uL 0.33-0.92 = 742-7) EOS x10^3 (test code = 0.52 10*3/uL 0.03-0.39 H 711-2) BASO x10^3 (test code 0.03 10*3/uL 0.01-0.07 = 704-7) Lab Interpretation Abnormal (test code = 63961-9) [facility] HospitalPOCT [id number] 19:00:00 Test Item Value Reference Range Interpretation Comments POCT PREG (test code = 1605) negative On board controls acceptable with present C Line (test code = 3574) POCT PREG LOT # (test code = 3575) [id number] POCT PREG TEST DATE (test 08-11-2023 code = 3576) Lab Interpretation (test code = Normal 98590-1) [facility] WITH [id number] 15:21:11 Test Item Value Reference Range Interpretation Comments WBC (test code = See_Comment [Automated 8174-2) message] The sy stem which generated this result transmitted reference range : 4.30 - 11.10 10*3/?L. The reference range was not used to interpret this result as normal/abnormal . RBC (test code = See_Comment [Automated 730-8) message] The sy stem which generated this [...] RDW-SD (test code = 42.6 fL 39.0-49.9 09149-7) RDW-CV (test code = 12.9 % 12.0-15.5 788-0) PLT (test code = See_Comment H [Automated 777-3) message] The sy stem which generated this result transmitted reference range : 166 - 358 10*3/ ?L. The reference r david was not used to interpret this result as normal/abnormal . MPV (test code = 9.1 fL 9.5-12.9 L 81054-1) NRBC/100 WBC (test See_Comment [Automat ed code = 4055764091) message] The system which generated this result transmitted reference range : 0.0 - 10.0 /100 WBCs. The refer ence range was not u sed to interpret th is result as normal/abnormal . NRBC x10^3 (test code See_Comment [Auto mated = 0112499614) message] The s ystem which generated this result transmitted reference range : 10*3/?L. The reference range was not used to interpret this result as normal/abnormal . GRAN MAT (NEUT) % 56.8 % (test code = 770-8) IMM GRAN % (test code 0.30 % = 8531108494) LYMPH % (test code = 29.5 % 736-9) MONO % (test code = 4.3 % 5905-5) EOS % (test code = 8.3 % 713-8) BASO % (test code = 0.8 % 706-2) GRAN MAT x10^3(ANC) 3.57 10*3/uL 1.88-7.09 (test code = 1862425930) IMM GRAN x10^3 (test 0.00-0.06 code = 5042568738) LYMPH x10^3 (test code 1.85 10*3/uL 1.32-3.29 = 731-0) MONO x10^3 (test code 0.27 10*3/uL 0.33-0.92 L = 742-7) EOS x10^3 (test code = 0.52 10*3/uL 0.03-0.39 H 711-2) BASO x10^3 (test code 0.05 10*3/uL 0.01-0.07 = 704-7) Lab Interpretation Abnormal (test code = 49667-8) [facility]. METABOLIC PANEL ([id number])2022-04-26 15:12:13 Test Item Value Reference Range Interpretation Comments NA (test code = 141 mmol/L 135-145 8450061964) K (test code = 3.4 mmol/L 3.5-5.0 L 9983918216) CL (test code = 104 mmol/L 98-108 2436549287) CO2 TOTAL (test code = 23 mmol/L 23-31 9291179142) AGAP (test code = 2-16 0138500416) BUN (test code = 9 mg/dL 7-23 9234250156) GLUCOSE (test code = 101 mg/dL 70-110 6512422822) CREATININE (test code = 0.82 mg/dL 0.50-1.04 3714630776) TOTAL BILI (test code = 0.7 mg/dL 0.1-1.9 6484969690) CALCIUM (test code = 9.3 mg/dL 8.6-10.6 7473068288) T PROTEIN (test code = 8.1 g/dL 6.3-8.2 5601668819) ALBUMIN (test code = 4.7 g/dL 3.5-5.0 6620903873) ALK PHOS (test code = 108 U/L 34-122 4097166250) ALTv (test code = 24 U/L 5-35 1742-6) AST(SGOT) (test code = 49 U/L 13-40 H 1823810082) eGFR (test code = mL/min/1.73m2 9585174736) WESLEY (test code = WESLEY) Association of [...] tests). Lab Interpretation Abnormal (test code = 40527-6) [facility] [id number] 14:45:00 Test Item Value Reference Range Interpretation Comments POCT PREG (test code = 1605) negative On board controls acceptable with present C Line (test code = 3574) POCT PREG LOT # (test code = 3575) [id number] POCT PREG TEST DATE (test 08/11/2023 code = 3576) Lab Interpretation (test code = Normal 24727-4) [facility] [id number] 01:22:00 Test Item Value Reference Range Interpretation Comments POCT PREG (test code = 1605) Negative On board controls acceptable with Present C Line (test code = 3574) POCT PREG LOT # (test code = 3575) [id number] POCT PREG TEST DATE (test 08-11-2023 code = 3576) Lab Interpretation (test code = Normal 47686-0) [facility] (NA, K, CL, CO2, GLUCOSE, BUN, CREATININE, CA)2022-04-07 23:01:10 Test Item Value Reference Range Interpretation Comments NA (test code = 138 mmol/L 135-145 2913009617) K (test code = 4.3 mmol/L 3.5-5.0 1854461422) CL (test code = 107 mmol/L 98-108 3836731517) CO2 TOTAL (test code = 20 mmol/L 23-31 L 6649686482) AGAP (test code = 2-16 4986582471) BUN (test code = 9 mg/dL 7-23 2785048860) GLUCOSE (test code = 204 mg/dL 70-110 H [id number]) CREATININE (test code = 0.74 mg/dL 0.50-1.04 4904868095) CALCIUM (test code = 9.1 mg/dL 8.6-10.6 3997703791) eGFR (test code = mL/min/1.73m2 9760072368) WESLEY (test code = WESLEY) Association of [...] tests). Lab Interpretation Abnormal (test code = 40448-2) [facility] WITH [id number] 22:57:34 Test Item Value Reference Range Interpretation Comments WBC (test code = See_Comment [Automated 5190-2) message] The sy stem which generated this [...] RDW-SD (test code = 42.9 fL 39.0-49.9 28161-9) RDW-CV (test code = 13.4 % 12.0-15.5 788-0) PLT (test code = See_Comment H [Automated 777-3) message] The sy stem which generated this result transmitted reference range : 166 - 358 10*3/ ?L. The reference r david was not used to interpret this result as normal/abnormal . MPV (test code = 8.9 fL 9.5-12.9 L 50026-4) NRBC/100 WBC (test See_Comment [Automat ed code = [id number]) message] The system which generated this result transmitted reference range : 0.0 - 10.0 /100 WBCs. The refer ence range was not u sed to interpret th is result as normal/abnormal . NRBC x10^3 (test code See_Comment [Auto mated = 8311901217) message] The s ystem which generated this result transmitted reference range : 10*3/?L. The reference range was not used to interpret this result as normal/abnormal . GRAN MAT (NEUT) % 88.7 % (test code = 770-8) IMM GRAN % (test code 0.70 % = 4705221541) LYMPH % (test code = 9.4 % 736-9) MONO % (test code = 0.9 % 5905-5) EOS % (test code = 0.1 % 713-8) BASO % (test code = 0.2 % 706-2) GRAN MAT x10^3(ANC) 7.81 10*3/uL 1.88-7.09 H (test code = 1635718130) IMM GRAN x10^3 (test 0.06 10*3/uL 0.00-0.06 code = 3649368225) LYMPH x10^3 (test code 0.83 10*3/uL 1.32-3.29 L = 731-0) MONO x10^3 (test code 0.08 10*3/uL 0.33-0.92 L = 742-7) EOS x10^3 (test code = 0.03-0.39 L 711-2) BASO x10^3 (test code 0.01-0.07 = 704-7) Lab Interpretation Abnormal (test code = 92022-7) [facility] [id number] 14:07:00 Test Item Value Reference Range Interpretation Comments POCT PREG (test code = 1605) negative On board controls acceptable with present C Line (test code = 3574) POCT PREG LOT # (test code = 3575) [id number] POCT PREG TEST DATE (test 08/11/2023 code = 3576) Lab Interpretation (test code = Normal 85034-4) [facility] [id number] 13:52:00 Test Item Value Reference Range Interpretation Comments POCT PREG (test code = 1605) negative On board controls acceptable with C present Line (test code = 3574) Lab Interpretation (test code = Normal 81786-3) [facility] [id number] 14:59:00 Test Item Value Reference Range Interpretation Comments POCT PREG (test code = 1605) negative On board controls acceptable with yes C Line (test code = 3574) POCT PREG LOT # (test code = 3575) [id number] POCT PREG TEST DATE (test 07/11/2023 code = 3576) Lab Interpretation (test code = Normal 35771-6) [facility] METABOLIC PANEL (54978)2022 17:51:43 Test Item Value Reference Range Interpretation Comments NA (test code = 139 mmol/L 135-145 0039013629) K (test code = 4.1 mmol/L 3.5-5 4193748713) CL (test code = 104 mmol/L 98-108 8307404831) CO2 TOTAL (test code = 22 mmol/L 23-31 L 3794724400) AGAP (test code = 2-16 5224423297) BUN (test code = 7 mg/dL 7-23 9925819152) GLUCOSE (test code = 114 mg/dL 70-110 H 9358652193) CREATININE (test code = 0.69 mg/dL 0.5-1.04 8422596944) TOTAL BILI (test code = 0.4 mg/dL 0.1-1.6 4329560951) CALCIUM (test code = 9.7 mg/dL 8.6-10.6 0113298369) T PROTEIN (test code = 7.2 g/dL 6.3-8.2 2097235221) ALBUMIN (test code = 4.6 g/dL 3.5-5 0989092264) ALK PHOS (test code = 65 U/L 34-122 3992633918) ALTv (test code = 15 U/L 5-35 1742-6) AST(SGOT) (test code = 19 U/L 13-40 1988670800) eGFR (test code = mL/min/1.73m2 0599850912) WESLEY (test code = WESLEY) Association of [...] tests). Lab Interpretation Abnormal (test code = 62908-5) [facility] WITH [id number] 17:40:24 Test Item Value Reference Range Interpretation Comments WBC (test code = See_Comment [Automated 5024-2) message] The sy stem which generated this result transmitted reference range : 4.30 - 11.10 10*3/?L. The reference range was not used to interpret this result as normal/abnormal . RBC (test code = See_Comment [Automated 846-8) message] The sy stem which generated this [...] RDW-SD (test code = 43.1 fL 39-49.9 75431-3) RDW-CV (test code = 13.2 % 12-15.5 788-0) PLT (test code = See_Comment [Automated 267-3) message] The sy stem which generated this result transmitted reference range : 166 - 358 10*3/ ?L. The reference r david was not used to interpret this result as normal/abnormal . MPV (test code = 9.5 fL 9.5-12.9 07462-6) NRBC/100 WBC (test See_Comment [Automat ed code = 6004007854) message] The system which generated this result transmitted reference range : 0.0 - 10.0 /100 WBCs. The refer ence range was not u sed to interpret th is result as normal/abnormal . NRBC x10^3 (test code See_Comment [Auto mated = 5222560703) message] The s ystem which generated this result transmitted reference range : 10*3/?L. The reference range was not used to interpret this result as normal/abnormal . GRAN MAT (NEUT) % 57.8 % (test code = 770-8) IMM GRAN % (test code 0.20 % = 4431383281) LYMPH % (test code = 30.8 % 736-9) MONO % (test code = 5.1 % 5905-5) EOS % (test code = 5.6 % 713-8) BASO % (test code = 0.5 % 706-2) GRAN MAT x10^3(ANC) 3.61 10*3/uL 1.88-7.09 (test code = 0054311035) IMM GRAN x10^3 (test 0-0.06 code = 5352948729) LYMPH x10^3 (test code 1.92 10*3/uL 1.32-3.29 = 731-0) MONO x10^3 (test code 0.32 10*3/uL 0.33-0.92 L = 742-7) EOS x10^3 (test code = 0.35 10*3/uL 0.03-0.39 711-2) BASO x10^3 (test code 0.03 10*3/uL 0.01-0.07 = 704-7) Lab Interpretation Abnormal (test code = 10733-0) [facility] [id number] 17:27:00 Test Item Value Reference Range Interpretation Comments POCT PREG (test code = 1605) negative On board controls acceptable with present C Line (test code = 3574) POCT PREG LOT # (test code = 3575) [id number] POCT PREG TEST DATE (test code = 3576) Lab Interpretation (test code = Normal 96848-1) [id number] 12:45:21 Test Item Value Reference Range Interpretation Comments LIPASE (test code = 4150570350) 41 U/L 0-220 Lab Interpretation (test code = Normal 87379-4) [facility] [id number] 10:57:00 Test Item Value Reference Range Interpretation Comments POCT PREG (test code = 1605) Negative On board controls acceptable with Present C Line (test code = 3574) POCT PREG LOT # (test code = 3575) [id number] POCT PREG TEST DATE (test 03/12/2023 code = 3576) Lab Interpretation (test code = Normal 28478-9) [facility] (NA, K, CL, CO2, GLUCOSE, BUN, CREATININE, CA)2022-01-18 10:56:51 Test Item Value Reference Range Interpretation Comments NA (test code = 137 mmol/L 135-145 5117530286) K (test code = 4.6 mmol/L 3.5-5 Slight 7896889212) hemolysis CL (test code = 108 mmol/L 98-108 7822342242) CO2 TOTAL (test code 22 mmol/L 23-31 L = 1944510628) AGAP (test code = 2-16 3549438224) BUN (test code = 11 mg/dL 7-23 Slight 9318961191) hemolysis GLUCOSE (test code = 83 mg/dL 70-110 9406874933) CREATININE (test code 0.68 mg/dL 0.5-1.04 = 2390400190) CALCIUM (test code = 8.8 mg/dL 8.6-10.6 8279079091) eGFR (test code = mL/min/1.73m2 7799286880) WESLEY (test code = WESLEY) Association of [...] tests). Lab Interpretation Abnormal (test code = 67580-0) [facility] (17575) (ALB,T.PRO,BILI T,BU/BC,ALT,AST,ALK PHOS)2022-01-18 10:56:51 Test Item Value Reference Range Interpretation Comments TOTAL BILI (test code = 4860418531) 0.6 mg/dL 0.1-1.1 BILI UNCON (test code = 8972539915) 0.1 mg/dL 0.1-1.1 BILI CONJ (test code = 7018448860) 0.0 mg/dL 0-0.3 T PROTEIN (test code = 8297071547) 8.6 g/dL 6.3-8.2 H ALBUMIN (test code = 6721244068) 5.1 g/dL 3.5-5 H ALK PHOS (test code = 9825159050) 79 U/L 34-122 ALTv (test code = 1742-6) 117 U/L 5-35 H AST(SGOT) (test code = 2207987829) 163 U/L 13-40 H Lab Interpretation (test code = Abnormal 69742-0) [facility] TEST, [id number] 10:54:25 Test Item Value Reference Range Interpretation Comments PREG SERUM (test code Negative = 6645032759) WESLEY (test code = WESLEY) Less than 10 IU/L. ?If low titer or ectopic is suspected, resubmit specimen in 48-72 hours. [facility] WITH [id number] 10:40:49 Test Item Value Reference Range Interpretation [...] RDW-SD (test code = 45.3 fL 39-49.9 46041-1) RDW-CV (test code = 14.5 % 12-15.5 788-0) PLT (test code = See_Comment [Automated 777-3) message] The sy stem which generated this result transmitted reference range : 166 - 358 10*3/ ?L. The reference r david was not used to interpret this result as normal/abnormal . MPV (test code = 9.5 fL 9.5-12.9 03032-4) NRBC/100 WBC (test See_Comment [Automat ed code = 4374672527) message] The system which generated this result transmitted reference range : 0.0 - 10.0 /100 WBCs. The refer ence range was not u sed to interpret th is result as normal/abnormal . NRBC x10^3 (test code See_Comment [Auto mated = 1334685031) message] The s ystem which generated this result transmitted reference range : 10*3/?L. The reference range was not used to interpret this result as normal/abnormal . GRAN MAT (NEUT) % 47.6 % (test code = 770-8) IMM GRAN % (test code 0.60 % = 4044518877) LYMPH % (test code = 39.9 % 736-9) MONO % (test code = 5.9 % 5905-5) EOS % (test code = 5.3 % 713-8) BASO % (test code = 0.7 % 706-2) GRAN MAT x10^3(ANC) 4.45 10*3/uL 1.88-7.09 (test code = 0483299343) IMM GRAN x10^3 (test 0.06 10*3/uL 0-0.06 code = 3902914512) LYMPH x10^3 (test code 3.74 10*3/uL 1.32-3.29 H = 731-0) MONO x10^3 (test code 0.55 10*3/uL 0.33-0.92 = 742-7) EOS x10^3 (test code = 0.50 10*3/uL 0.03-0.39 H 711-2) BASO x10^3 (test code 0.07 10*3/uL 0.01-0.07 = 704-7) Lab Interpretation Abnormal (test code = 96280-5) [facility] [id number] 18:31:00 Test Item Value Reference Range Interpretation Comments POCT PREG (test code = 1605) Negative On board controls acceptable with C Yes Line (test code = 3574) POCT PREG LOT # (test code = 3575) POCT PREG TEST DATE (test code = 3576) [facility] URINALYSIS W/O SPECIFIC [id number] 18:31:00 Test Item Value Reference Range Interpretation [...] code = 3257) Trace Negative - Negative [facility]"
[2022-11-15] MEDS ORDERED: NA CHLORIDE 0.9% 1,000 ML ONE (21:14)
[2022-11-15] MEDS ORDERED: ONDANSETRON 4 MG/2 ML VIAL ONE ×2 (21:14→22:18)
[2022-11-15] MEDS ORDERED: MORPHINE 4 MG/ML SYR ONE ×2 (21:14→22:17)
[2022-11-15 21:30] LABS: Absolute Lymphocytes (CBC) 2.7 K/uL (0.7-4.9); Hematocrit 40.6 % (36.0-45.0); Lymphocytes % 35.5 % (15.3-44.8); MCV 85.8 fL (80-100); MPV 7.7 fL (7.6-11.3); RBC Red Blood Cell Count 4.73 M/uL (3.86-4.86)
[2022-11-15 21:31] LABS: Specific Gravity 1.023 (1.005-1.030)
[2022-11-15 21:41] LABS: Specific Gravity 1.023 (1.005-1.030); Urine Bacteria <20 /HPF (<20); Urine Bilirubin NEGATIVE (Negative); Urine Blood 3+ (OVER) (Negative); Urine Clarity Extremely Turbid (Clear); Urine Color Yellow (Yellow); Urine Crystals Unidentified Few /HPF (None Seen); Urine Glucose NEGATIVE (Negative); Urine Mucus 4+ /HPF (None Seen); Urine Protein 1+ (Negative); Urine RBC >50 /HPF (None Seen); Urine Urobilinogen Normal (Normal); Urine WBC Clump Rare /HPF (None Seen); Urine pH 5.5 (5.0-7.0)
[2022-11-15 21:52] LABS: Albumin 4.1 g/dL (3.4-5.0); Bilirubin Total 0.4 mg/dL (0.2-1.0); Potassium 3.1 mEq/L (3.5-5.1)
--- NOTE | 2022-11-15 22:47 | RAD REPORT ---
EXAM DESCRIPTION: CT - Stone Protocol - 11/15/2022 10:27 pm CLINICAL HISTORY: FLANK PAIN COMPARISON: Stone Protocol dated 11/10/2022; Abdomen Pelvis W Contrast dated 07/02/2022; Abdomen Pe lvis W Contrast dated 05/24/2022; Abdomen Pelvis W Contrast dated 03/22/2022 TECHNIQUE: Thin cut axial CT imaging of the abdomen and pelvis was performed without IV contrast. Mu ltiplanar reformats were generated and reviewed. All CT scans are performed using dose optimization technique as appropriate and may include automated exposure control or mA/KV adjustment according to patient size. FINDINGS: No suspicious findings in the lung bases. The liver, spleen, and pancreas show no suspicious findings. Gallbladder and biliary tree are also wi thout suspicious finding. Symmetric renal contour, without suspicious parenchymal findings within limits of noncontrast techniq ue. No hydroureteronephrosis. Right renal superior pole 3 millimeter nonobstructing calculus. No dilated bowel loops or bowel wall thickening. No free air, free fluid or inflammatory stranding. N o hernia, mass or bulky lymphadenopathy. The urinary bladder is without significant finding. No suspicious bony findings. IMPRESSION: Right renal superior pole 3 millimeter nonobstructing calculus. No other acute intra-abd ominal process.
[2022-11-15] MEDS ORDERED: HYDROMORPHONE HCL 1 MG/ML INJ ONE (22:58)
--- NOTE | 2022-11-15 23:50 | ER ---
Nurse's Notes [facility] Name: Natanael Dyson Age: 27 yrs Sex: Female : 1995 Arrival Date: 11/15/2022 Time: 20:12 Bed IW4 Private MD: Diagnosis: Calculus of kidney;UTI/ Urinary tract infection, site not specified Presentation: 11/15 20:46 Chief complaint: Patient states: UTI diagnosed 1 week ago. finished antibiotics this lg3 morning but i think its getting worse. Coronavirus screen: Client denies travel out of the [place] in the last 14 days. At this time, the client does not indicate any symptoms associated with coronavirus-19. Ebola Screen: No symptoms or risks identified at this time. Initial Sepsis Screen: Does the patient meet any 2 criteria? No. Patient's initial sepsis screen is negative. Does the patient have a suspected source of infection? No. Patient's initial sepsis screen is negative. Risk Assessment: Do you want to hurt yourself or someone else? Patient reports no desire to harm self or others. Onset of symptoms is unknown. 20:46 Method Of Arrival: Ambulatory lg3 20:46 Acuity: THIERNO 3 lg3 Triage Assessment: 20:47 General: Appears in no apparent distress. uncomfortable, Behavior is calm, cooperative. lg3 Pain: Complains of pain in abdomen and pelvis and back. Pain:. EENT: No deficits noted. No signs and/or symptoms were reported regarding the EENT system. Neuro: No deficits noted. Bradford Agitation-Sedation Scale (RASS): 0 - Alert and Calm Level of Consciousness is awake, alert, obeys commands, Oriented to person, place, time, situation. Cardiovascular: No deficits noted. Denies chest pain, shortness of breath, Capillary refill < 3 seconds Clubbing of nail beds is absent JVD is absent Patient's skin is warm and dry. Respiratory: No deficits noted. Airway is patent Respiratory effort is even, unlabored, Respiratory pattern is regular, symmetrical. GI: No deficits noted. Abdomen is round non-distended, Reports lower abdominal pain. : Reports cramping, pain urgency, urinary frequency. Derm: No deficits noted. No signs and/or symptoms reported regarding the dermatologic system. Skin is intact, is healthy with good turgor, Skin is dry, Skin is normal, Skin temperature is warm. Musculoskeletal: No deficits noted. No signs and/or symptoms reported regarding the musculoskeletal system. Circulation, motion, and sensation intact. Range of motion: intact in all extremities. 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 - Social history:: Smoking status: Patient denies any tobacco usage or history of. Patient/guardian denies using alcohol, street drugs. Screenin:50 [facility] ED Fall Risk Assessment (Adult) History of falling in the last 3 months, ha1 including since admission No falls in past 3 months (0 pts) Confusion or Disorientation No (0 pts) Intoxicated or Sedated No (0 pts) Impaired Gait No (0 pts) Score/Fall Risk Level 0 - 2 = Low Risk Oriented to surroundings, Maintained a safe environment, Educated pt \T\ family on fall prevention, incl call for assistance when getting out of bed. Abuse screen: Denies threats or abuse. Denies injuries from another. Nutritional screening: No deficits noted. Tuberculosis screening: No symptoms or risk factors identified. Assessment: 21:50 General: Appears uncomfortable, Behavior is crying. Pain: Complains of pain in back ha1 Pain does not radiate. Pain currently is 10 out of 10 on a pain scale. Neuro: Level of Consciousness is awake, alert, obeys commands, Oriented to person, place, time, situation. Cardiovascular: Patient's skin is warm and dry. Respiratory: Airway is patent Respiratory effort is even, unlabored, Respiratory pattern is regular, symmetrical. GI: Reports nausea. : Reports urgency. Musculoskeletal: Circulation, motion, and sensation intact. Range of motion: intact in all extremities. 22:50 Reassessment: Patient and/or family updated on plan of care and expected duration. Pain ha1 level reassessed. Patient is alert, oriented x 3, equal unlabored respirations, skin warm/dry/pink. pain 02/19. 23:50 Reassessment: Patient and/or family updated on plan of care and expected duration. Pain ha1 level reassessed. Patient is alert, oriented x 3, equal unlabored respirations, skin warm/dry/pink. pain 02/19. 11/16 00:28 Reassessment: Patient and/or family updated on plan of care and expected duration. Pain ha1 level reassessed. Patient is alert, oriented x 3, equal unlabored respirations, skin warm/dry/pink. Patient states feeling better. Patient states symptoms have improved. Vital Signs: 11/15 20:46 BP 133 / 99; Pulse 89; Resp 17 S; Temp 98.4(O); Pulse Ox 98% on R/A; Weight 58.97 kg lg3 (R); Height 5 ft. 1 in. (R); Pain 9/10; 22:00 BP 133 / 100; Pulse 91; Resp 18 S; Pulse Ox 100% on R/A; ha1 23:00 BP 126 / 93; Pulse 89; Resp 18 S; Pulse Ox 100% on R/A; ha1 23:30 BP 125 / 90; Pulse 85; Resp 16 S; Pulse Ox 100% on R/A; ha1 11/16 00:00 BP 126 / 75; Pulse 85; Resp 18 S; Pulse Ox 100% on R/A; ha1 11/15 20:46 Body Mass Index 24.56 (58.97 kg, 154.94 cm) lg3 11/15 20:46 Pain Scale: Adult lg3 ED Course: 11/15 20:22 Patient arrived in ED. jj6 20:26 Justin Curiel PA is PHCP. cp 20:26 Brodie Mota MD is Attending Physician. cp 20:47 Triage completed. lg3 20:47 Arm band placed on right wrist. lg3 20:50 Patient has correct armband on for positive identification. Placed in gown. Bed in low ha1 position. Call light in reach. Side rails up X 1. 21:22 Inserted saline lock: 22 gauge in right forearm, using aseptic technique. Blood sg5 collected. 22:07 Zainab Escamilla RN is Primary Nurse. ha1 22:29 CT Stone Protocol In Process Unspecified. EDMS 23:49 Tristan Moeller MD is Referral Physician. 11/16 00:28 No provider procedures requiring assistance completed. IV discontinued, intact, ha1 bleeding controlled, No redness/swelling at site. Pressure dressing applied. Administered Medications: 11/15 21:22 Drug: NS 0.9% IV 1000 ml Route: IV; Rate: 1 bolus; Site: right forearm; sg5 21:22 Drug: Ondansetron IVP 4 mg Route: IVP; Site: right forearm; sg5 21:23 Drug: morphine IVP or IV 4 mg Route: IVP; Infused Over: 4 mins; Site: right forearm; sg5 22:00 Follow up: Response: No adverse reaction; Pain is unchanged, physician notified; RASS: ha1 Alert and Calm (0) 22:10 Drug: Ondansetron IVP 4 mg Route: IVP; Site: right antecubital; ha1 11/16 00:23 Follow up: Response: No adverse reaction ha1 11/15 22:14 Drug: morphine IVP or IV 4 mg Route: IVP; Infused Over: 4 mins; Site: right antecubital;ha1 22:45 Follow up: Response: No adverse reaction; Pain is unchanged, physician notified; RASS: ha1 Alert and Calm (0) 22:52 Drug: HYDROmorphone IVP 1 mg Route: IVP; Site: right antecubital; ha1 23:10 Follow up: Response: No adverse reaction; Pain is unchanged, physician notified; RASS: ha1 Alert and Calm (0) 23:59 Drug: Rocephin IV 1 grams Route: IV; Rate: calculated rate; Site: right forearm; ha1 11/16 00:22 Follow up: Response: No adverse reaction; IV Status: Completed infusion; IV Intake: [id number] 00:10 Drug: HYDROmorphone IVP 1 mg Route: IVP; Site: right forearm; ha1 Medication: 00:29 VIS not applicable for this client. ha1 Intake: 00:22 IV: 50ml; Total: 50ml. ha1 Outcome: 11/15 23:50 Discharge ordered by . 11/16 00:29 Discharged to home ambulatory. ha1 Discharged to home ambulatory, with family. Condition: stable Discharge instructions given to patient, Instructed on discharge instructions, follow up and referral plans. medication usage, Demonstrated understanding of instructions, follow-up care, medications, Prescriptions given X 2. 00:33 Patient left the ED. ha1 Signatures: Dispatcher [employer] EDMS Justin Curiel PA PA cp Gibson, Lacie, RN RN lg3 Gisela [id number] Zainab Escamilla RN RN ha1 Anusha Prince RN RN sg5
--- NOTE | 2022-11-15 23:50 | EDPHYS ---
Physician Documentation [facility] Name: Natanael Dyson Age: 27 yrs Sex: Female : 1995 Arrival Date: 11/15/2022 Time: 20:12 Bed IW4 Private MD: ED Physician Brodie Mota HPI: 11/15 22:00 This 27 yrs old Female presents to ER via Ambulatory with complaints of Fever, General cp Weakness. 22:00 The patient reports fever, not measured (subjective). Onset: The symptoms/episode cp began/occurred this morning. 22:00 Associated signs and symptoms: Pertinent positives: nausea, vomiting, flank pain, cp Pertinent negatives: diarrhea. Patient reports she was diagnosed with UTI about 1 week ago and prescribed antibiotics which she took last dose this morning. Patient reports symptoms returned. 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 - Social history:: Smoking status: Patient denies any tobacco usage or history of. Patient/guardian denies using alcohol, street drugs. ROS: 22:05 Constitutional: Negative for fever, poor PO intake. cp 22:05 Eyes: Negative for injury, pain, redness, and discharge. cp 22:05 ENT: Negative for drainage from ear(s), ear pain, sore throat, difficulty swallowing, difficulty handling secretions. 22:05 Respiratory: Negative for cough, shortness of breath, wheezing. 22:05 Abdomen/GI: Positive for abdominal pain, nausea and vomiting, Negative for diarrhea, constipation. 22:05 Back: Positive for flank pain. 22:05 Neuro: Negative for altered mental status, dizziness, headache, weakness. 22:05 All other systems are negative. Exam: 22:10 Constitutional: The patient appears in no acute distress, alert, awake, non-toxic, well cp developed, well nourished, afebrile 22:10 Head/Face: Normocephalic, atraumatic. cp 22:10 Eyes: Periorbital structures: appear normal, Conjunctiva: normal, no exudate, no injection, Sclera: no appreciated abnormality, Lids and lashes: appear normal, bilaterally. 22:10 ENT: External ear(s): are unremarkable, Nose: is normal, Mouth: Lips: moist, Oral mucosa: pink and intact, moist, Posterior pharynx: is normal, airway is patent, no erythema, no exudate. 22:10 Neck: ROM/movement: is normal, is supple, without pain, no range of motions limitations, no meningismus. 22:10 Chest/axilla: Inspection: normal. 22:10 Cardiovascular: Rate: normal, Rhythm: regular. 22:10 Respiratory: the patient does not display signs of respiratory distress, Respirations: normal, no use of accessory muscles, no retractions, labored breathing, is not present, Breath sounds: are clear throughout, no decreased breath sounds, no stridor, no wheezing. 22:10 Abdomen/GI: Inspection: abdomen appears normal, Bowel sounds: active, all quadrants. 22:10 Back: pain, that is moderate, of the mid back area, ROM is painful, with all movement. 22:10 Neuro: Orientation: to person, place \T\ time. Mentation: is normal, Motor: moves all fours, strength is normal, Gait: is steady. Vital Signs: 20:46 BP 133 / 99; Pulse 89; Resp 17 S; Temp 98.4(O); Pulse Ox 98% on R/A; Weight 58.97 kg lg3 (R); Height 5 ft. 1 in. (R); Pain 9/10; 22:00 BP 133 / 100; Pulse 91; Resp 18 S; Pulse Ox 100% on R/A; ha1 23:00 BP 126 / 93; Pulse 89; Resp 18 S; Pulse Ox 100% on R/A; ha1 23:30 BP 125 / 90; Pulse 85; Resp 16 S; Pulse Ox 100% on R/A; ha1 11/16 00:00 BP 126 / 75; Pulse 85; Resp 18 S; Pulse Ox 100% on R/A; ha1 11/15 20:46 Body Mass Index 24.56 (58.97 kg, 154.94 cm) lg3 11/15 20:46 Pain Scale: Adult lg3 MDM: 11/15 21:03 Patient medically screened. cp 23:50 Data reviewed: vital signs, nurses notes, lab test result(s), radiologic studies, CT cp scan. 23:50 Differential diagnosis: UTI, sepsis, kidney stone. Consideration of cp Admission/Observation Escalation of care including admission/observation considered. I considered the following discharge prescriptions or medication management in the emergency department Medications were administered in the Emergency Department. See MAR. Counseling: I had a detailed discussion with the patient and/or guardian regarding: the historical points, exam findings, and any diagnostic results supporting the discharge/admit diagnosis, lab results, radiology results, to return to the emergency department if symptoms worsen or persist or if there are any questions or concerns that arise at home. Response to treatment: the patient's symptoms have markedly improved after treatment. Special discussion: Based on the patient's Hx, exam, and Dx evaluation, there is no indication for emergent surgery or inpatient Tx. It is understood by the patient/guardian that if the Sx's persist or worsen they need to return immediately for re-evaluation. 11/15 21:01 Order name: CBC with Diff; Complete Time: 22:42 cp 11/15 23:39 Interpretation: Normal except: EOSINOPHIL % 7.1. cp 11/15 21:01 Order name: CMP; Complete Time: 22:42 cp 11/15 22:42 Interpretation: Normal except: K 3.1; CRE 1.56; GFR 46; GLOB 3.9. 11/15 21:01 Order name: Lipase; Complete Time: 22:42 cp 11/15 21:01 Order name: Test, Urine; Complete Time: 21:42 cp 11/15 21:43 Interpretation: Reviewed. 11/15 21:01 Order name: Urinalysis w/ reflexes; Complete Time: 21:43 cp 11/15 21:43 Interpretation: Normal except: [facility] Extremely Turbid; UKET TRACE; UBLD 3+ (OVER); UPROT cp 1+; UESTR 250; UWBC 20-50; URBC >50; MUCUS 4+. 11/15 21:45 Order name: Urine Culture EDMS 11/15 21:44 Order name: CT Stone Protocol; Complete Time: 23:37 cp 11/15 21:01 Order name: IV Saline Lock; Complete Time: 21:22 cp 11/15 21:01 Order name: Labs collected and sent; Complete Time: : cp Administered Medications: 21:22 Drug: NS 0.9% IV 1000 ml Route: IV; Rate: 1 bolus; Site: right forearm; sg5 21:22 Drug: Ondansetron IVP 4 mg Route: IVP; Site: right forearm; sg5 21:23 Drug: morphine IVP or IV 4 mg Route: IVP; Infused Over: 4 mins; Site: right forearm; sg5 22:00 Follow up: Response: No adverse reaction; Pain is unchanged, physician notified; RASS: ha1 Alert and Calm (0) 22:10 Drug: Ondansetron IVP 4 mg Route: IVP; Site: right antecubital; 1 11/16 00:23 Follow up: Response: No adverse reaction [facility] 11/15 22:14 Drug: morphine IVP or IV 4 mg Route: IVP; Infused Over: 4 mins; Site: right antecubital;ha1 22:45 Follow up: Response: No adverse reaction; Pain is unchanged, physician notified; RASS: ha1 Alert and Calm (0) 22:52 Drug: HYDROmorphone IVP 1 mg Route: IVP; Site: right antecubital; ha1 23:10 Follow up: Response: No adverse reaction; Pain is unchanged, physician notified; RASS: ha1 Alert and Calm (0) 23:59 Drug: Rocephin IV 1 grams Route: IV; Rate: calculated rate; Site: right forearm; [facility] 11/16 00:22 Follow up: Response: No adverse reaction; IV Status: Completed infusion; IV Intake: [id number] 00:10 Drug: HYDROmorphone IVP 1 mg Route: IVP; Site: right forearm; ha1 Disposition Summary: 11/15/22 23:50 Discharge Ordered Location: Home cp Problem: an ongoing problem cp Symptoms: have improved cp Condition: Stable cp Diagnosis - Calculus of kidney cp - UTI/ Urinary tract infection, site not specified cp Followup: cp - With: Tristan Moeller MD - When: 2 - 3 days - Reason: Recheck today's complaints Discharge Instructions: - Discharge Summary Sheet cp - Kidney Stones cp - Urinary Tract Infection, Adult cp Forms: - Medication Reconciliation Form cp - Thank You Letter cp - Antibiotic Education cp - Prescription Opioid Use cp - [email or web address] cp Prescriptions: - Zofran 4 mg Oral Tablet - take 1 tablet by ORAL route every 12 hours As needed; 20 tablet; Refills: 0, cp Product Selection Permitted - cefpodoxime 200 mg Oral Tablet - take 1 tablet by ORAL route every 12 hours for 10 days with food; 20 tablet; cp Refills: 0, Product Selection Permitted Addendum: 11/20/2022 19:59 Co-signature as Attending Physician, Brodie Mota MD I agree with the assessment s p4 and plan of care. I reviewed the patient's care provided by the Advanced Practice Provider and agree with the diagnosis and treatment plan. Signatures: Dispatcher [employer] EDND Justin Curiel PA PA cp Gibson, Lacie, RN RN lg3 Zainab Escamilla RN RN ha1 Brodie Mota MD MD sp4 Anusha Prince RN RN sg5
[2022-11-15] MEDS ORDERED: NA CHLORIDE 0.9% 50 ML ONE (23:56)
[2022-11-15] MEDS ORDERED: CEFTRIAXONE 1000 MG/VIAL ONE (23:56)
[2022-11-16] MEDS ORDERED: HYDROMORPHONE HCL 1 MG/ML INJ ONE (00:23)
[2022-11-16 01:41] VITALS: TEMP 98.4
[2022-11-16 01:42] VITALS: O2SAT 100
[2022-11-16 01:46] VITALS: BP 126/75
== END 2022-11-16 00:33 | disposition home or self-care (01) ==
LOC: ER 20:12
DX: N39.0 Urinary tract infection, site not specified (principal); N20.0 Calculus of kidney; Z87.442 Personal history of urinary calculi; Z88.1 Allergy status to other antibiotic agents; Z88.8 Allergy status to other drugs, medicaments and biological substances
CPT/HCPCS: 87088; 85025; 81001; 87086; 36415; 81025; 83690; 80053; 76377; 74176; 99284; J1170 ×2; J2405 ×2; J7030; J0696

== ENCOUNTER 2022-11-17 07:44 | Emergency (ER) | payer OTHER ==
--- OUTSIDE RECORDS SUMMARY | 2022-11-17 08:04 | XMS REPORT | Continuity of Care Document ---
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, Angelica Attending Clinician DARRION WYATT Attending Clinician [...] Clinician Akinsipe WHCNP, Cricket Lopez Attending Clinician [phone] Noam CURRIE, Leslie Attending Clinician Unavailable [...] Clinician Unavailable Karin Alvarado Attending Clinician Dennis FORESTR[employer] FACULTY MEMBER, Alissa Attending Clinician Anna Kim MD Attending [...] Type Policy Number Effective Date Expiration Date [facility] [id number] 2019 MEDICAID 00:00:00 Problems Condition Condition Condition Status Onset Resolution Last Treating Co mments Source Name Details Category Date Date Treatment Clinician Date Influenza Influenza Disease Active 2021-05 Uni vers vaccine vaccine 0-18 ity of needed needed 00:00: [address] Myalgia Myalgia Disease Active 2021-05 Univers 0-18 ity of 00:00: [address] Acute Acute Disease Active 2021-05 Univers cough cough 0-18 ity of 00:00: [address] Hx of Hx of Disease Active 2021-05 Univers extrinsic extrinsic 0-18 ity of asthma asthma 00:00: [place] [facility] Breast Breast Disease Active Univers pain in pain in 12-17 ity of female female 00:00: [place] [facility] Anxiety Anxiety Disease Active Univers disorder, disorder, 12-17 ity [place] [facility] Generalize Generalize Disease Active U nivers d anxiety d anxiety 4-20 ity of disorder disorder 00:00: [place] [facility] Nephrolith Nephrolith Disease Active U nivers iasis iasis 4-20 ity of 00:00: [place] [facility] Paresthesi Paresthesi Disease Active U nivers [...] History SDOH University o f Alcohol Std [place] [facility] Drinks Branch History SDOH University o f Alcohol Binge [place] [facility] al [facility] History SDOH University o f Alcohol Comment [place] [facility] ical Branch Exposure to 2022-08-26 2022-09-05 Not sure [facility] SARS-CoV-2 00:00:00 09:28:00 [facility] (event) Branch Alcohol intake 2022-07-31 2022-07-31 Ex-drinker University of 00:00:00 00:00:00 (finding) [facility] Tobacco use and 2021-12-12 2021-12-12 Smokeless tobacco Un iversity of exposure 00:00:00 00:00:00 non-user [place] [facility] [place] History SDOH 2019-02-06 2019-02-06 1 University o f Alcohol Frequency 00:00:00 00:00:00 [facility] Sex Assigned At [birth year] Universit y of 00:00:00 00:00:[address] [facility] Smoking Status Start Date Stop Date Source Never smoked tobacco [facility] Medications Ordered Filled Start Stop Current Ordering Indication Dosage Frequency Signature Comments Components Source Medication Medication Date Date Medication? Clinician (SIG) Name Name mirtazapine Yes 15mg Take 1 Univ ers 15 mg 5-12 tablet by ity of tablet 00:00: mouth at [place] 00 bedtime. Medical Branch mirtazapine Yes 15mg Take 1 Univ ers 15 mg 5-12 tablet by ity of tablet 00:00: mouth at [place] 00 bedtime. Medical Branch meloxicam 2023-0 Yes 15mg Take 1 Univer s 15 mg 5-09 tablet by ity of tablet 00:00: mouth in [place] 00 the Medical morning. Branch meloxicam 2023-0 Yes 15mg Take 1 Univer s 15 mg 5-09 tablet by ity of tablet 00:00: mouth in [place] 00 the Medical morning. Branch meloxicam 2023-0 Yes 15mg Take 1 Univer s 15 mg 5-09 tablet by ity of tablet 00:00: mouth in [place] 00 the Medical morning. Branch verapamil 2023-0 Yes 120mg Take 1 Unive rs SR 120 mg 5-08 tablet by ity o f ER tablet 00:00: mouth in [facility] 00 the Medical morning. Branch verapamil 2023-0 Yes 120mg Take 1 Unive rs SR 120 mg 5-08 tablet by ity o f ER tablet 00:00: mouth in [facility] 00 the Medical morning. Branch verapamil 2023-0 Yes 120mg Take 1 Unive rs SR 120 mg 5-08 tablet by ity o f ER tablet 00:00: mouth in [facility] 00 the Medical morning. Branch OLANZapine 2022-0 Yes 10mg Take 1 Unive rs 10 mg 4-27 tablet by ity of tablet 00:00: mouth in [place] 00 the Medical morning. Branch cloNIDine 2022-0 Yes TAKE 1-2 Univ ers 0.1 mg 4-27 TABLETS BY ity of tablet 00:00: MOUTH AT [place] [address] BEDTIME Medical NEEDED FOR Branch SLEEP AND ANXIETY OLANZapine 2022-0 Yes 10mg Take 1 Unive rs 10 mg 4-27 tablet by ity of tablet 00:00: mouth in [place] the Medical morning. Branch cloNIDine 2022-0 Yes TAKE 1-2 Univ ers 0.1 mg 4-27 TABLETS BY ity of tablet 00:00: MOUTH AT [place] [address] BEDTIME Medical NEEDED FOR Branch SLEEP AND ANXIETY OLANZapine 3-0 Yes 10mg Take 1 Unive rs 10 mg 4-27 tablet by ity of tablet 00:00: mouth in [place] 00 the Medical morning. Branch cloNIDine 2022-0 Yes TAKE 1-2 Univ ers 0.1 mg 4-27 TABLETS BY ity of tablet 00:00: MOUTH AT [place] [address] BEDTIME Medical NEEDED FOR Branch SLEEP AND [...] of succ 14:45: 14:35 s, ONCE, 1 [place] (SOLU-MEDRO 00 :00 dose, On Medi yessi L) Wed Branch injection 09/05/22 at 125 mg 0945, 2 mL butalbital- 2022- No 1{tbl} 1 tablet, Univers acetaminoph 09-05 Oral, ity of en-caff 14:00: 14:34 ONCE, 1 [place] (ESGIC) 00 :00 dose, On Medical 50-325-40 [...] IV ity of (PHENERGAN) 14:00: 14:40 Piggyback, [place] 12.5 mg in 00 :00 ONCE, 1 Medica l NaCl 0.9% dose, On Branch (NS) 50 mL [facility] IV 09/05/22 at piggyback 0900, [place] carvediloL 2022-0 Yes [id number] 25mg Take 1 U nivers 25 mg 4-26 tablet by ity of tablet 00:00: mouth in [place] [address] the morning [place] and 1 tablet in the evening. Take with meals. losartan 50 2022-0 Yes [id number] 50mg Take 1 Univers mg tablet 4-26 tablet by ity o f 00:00: mouth in [place] [address] the morning [place] and 1 tablet in the evening. carvediloL 2022-0 Yes [id number] 25mg Take 1 U nivers 25 mg 4-26 tablet by ity of tablet 00:00: mouth in [address] morning [place] and 1 tablet in the evening. Take with meals. losartan 50 2023-0 Yes [id number] 50mg Take 1 Univers mg tablet 4-26 tablet by ity o f 00:00: mouth in [place] [address] the Medical morning Branch and 1 tablet in the evening. carvediloL 2023-0 Yes [id number] 25mg Take 1 U nivers 25 mg 4-26 tablet by ity of tablet 00:00: mouth in [place] [address] the Medical morning Branch and 1 tablet in the evening. Take with meals. losartan 50 3-0 Yes [id number] 50mg Take 1 Univers mg tablet 4-26 tablet by ity o f 00:00: mouth in [place] [address] the Medical morning Branch and 1 tablet in the evening. carvediloL 2023-0 Yes [id number] 25mg Take 1 U nivers 25 mg 4-26 tablet by ity of tablet 00:00: mouth in [place] [address] the Medical morning [place] and 1 tablet in the evening. Take with meals. losartan 50 3-0 Yes [id number] 50mg Take 1 Univers mg tablet 4-26 tablet by ity o f 00:00: mouth in [place] [address] the Medical morning Branch and 1 tablet in the evening. carvediloL 2023-0 Yes [id number] 25mg Take 1 U nivers 25 mg 4-26 tablet by ity of tablet 00:00: mouth in [place] [address] the [facility] morning [place] and 1 tablet in the evening. Take with meals. losartan 50 3-0 Yes [id number] 50mg Take 1 Univers mg tablet 4-26 tablet by ity o f 00:00: mouth in [place] [address] the Medical morning [place] and 1 tablet in the evening. carvediloL 2023-0 Yes [id number] 25mg Take 1 U nivers 25 mg 4-26 tablet by ity of tablet 00:00: mouth in [place] [address] the [facility] morning [place] and 1 tablet in the evening. Take with meals. losartan 50 3-0 Yes [id number] 50mg Take 1 Univers mg tablet 4-26 tablet by ity o f 00:00: mouth in [place] [address] the [facility] morning [place] and 1 tablet in the evening. carvediloL 2023-0 Yes [id number] 25mg Take 1 U nivers 25 mg 4-26 tablet by ity of tablet 00:00: mouth in [address] morning [place] and 1 tablet in the evening. Take with meals. losartan 50 3-0 Yes [id number] 50mg Take 1 Univers mg tablet 4-26 tablet by ity o f 00:00: mouth in the Medical morning Branch and 1 tablet in the evening. carvediloL 2023-0 Yes [id number] 25mg Take 1 U nivers 25 mg 4-26 tablet by ity of tablet 00:00: mouth in 00 the Medical morning Branch and 1 tablet in the evening. Take with meals. losartan 50 2023-0 Yes [id number] 50mg Take 1 Univers mg tablet 4-26 [...] 00 :00 dose, On Medi yessi 1:1:1 [facility] Branch (FIRST[facility]MOUT 07/31/22 at [facility]) [place], [place] oral suspension 15 mL ketorolac 2022-0 2022- No 15mg 15 mg, Unive rs (TORADOL) 08-01 Slow IV ity of injection 00:15: 00:44 Push, [place] 15 mg 00 :00 ONCE, 1 Medical dose, On Branch [facility] 07/31/22 at 1914, Routine ondansetron 2022-0 2022- No 4mg 4 mg, Slow Univers (ZOFRAN 08-01 IV [place], ity of (PF)) 00:15: 00:46 ONCE, 1 [place] injection 4 00 :00 dose, On [facility] mg [facility] Branch 07/31/22 at 1914, [place] famotidine 2022-0 2022- No 20mg 20 mg, Univ ers (PEPCID 08-01 Slow IV ity of (PF)) 00:15: 00:46 [place], [place] injection 00 :00 ONCE, 1 Medical 20 mg dose, On Branch [facility] 07/31/22 at 1914, [place] ondansetron 2022-0 Yes [id number] 4mg Take 1 Univers 4 mg 3-21 tablet by ity of disintegrat 00:00: mouth [place] ing tablet 00 every 8 Medica l (eight) Branch hours as needed for Nausea and Vomiting (N/V). sucralfate 3-0 Yes [id number] 1g Take 1 U nivers 1 gram 3-21 tablet by ity of tablet 00:00: mouth [place] 00 before Medical meals and Branch at bedtime. ondansetron 2023-0 Yes [id number] 4mg Take 1 Univers 4 mg 3-21 tablet by ity of disintegrat 00:00: mouth [place] ing tablet 00 every 8 Medica l (eight) Branch hours as needed for Nausea and Vomiting (N/V). sucralfate 2023-0 Yes [id number] 1g Take 1 U nivers 1 gram 3-21 tablet by ity of tablet 00:00: mouth [place] 00 before Medical meals and Branch at bedtime. ondansetron 2023-0 Yes [id number] 4mg Take 1 Univers 4 mg 3-21 tablet by ity of disintegrat 00:00: mouth [place] ing tablet 00 every 8 Medica l (eight) Branch hours as needed for Nausea and Vomiting (N/V). sucralfate 2023-0 Yes [id number] 1g Take 1 U nivers 1 gram 3-21 tablet by ity of tablet 00:00: mouth [place] 00 before Medical meals and Branch at bedtime. ondansetron 2023-0 Yes [id number] 4mg Take 1 Univers 4 mg 3-21 tablet by ity of disintegrat 00:00: mouth [place] ing tablet 00 every 8 Medica l (eight) Branch hours as needed for Nausea and Vomiting (N/V). sucralfate 2023-0 Yes [id number] 1g Take 1 U nivers 1 gram 3-21 tablet by ity of tablet 00:00: mouth [place] 00 before Medical meals and Branch at bedtime. ondansetron 2023-0 Yes [id number] 4mg Take 1 Univers 4 mg 3-21 tablet by ity of disintegrat 00:00: mouth [place] ing tablet 00 every 8 Medica l (eight) Branch hours as needed for Nausea and Vomiting (N/V). sucralfate 2023-0 Yes [id number] 1g Take 1 U nivers 1 gram 3-21 tablet by ity of tablet 00:00: mouth [place] 00 before Medical meals and Branch at bedtime. ondansetron 2023-0 Yes [id number] 4mg Take 1 Univers 4 mg 3-21 tablet by ity of disintegrat 00:00: mouth [place] ing tablet 00 every 8 Medica l (eight) Branch hours as needed for Nausea and Vomiting (N/V). sucralfate 2023-0 Yes [id number] 1g Take 1 U nivers 1 gram 3-21 tablet by ity of tablet 00:00: mouth [place] 00 before Medical meals and Branch at bedtime. ondansetron 2023-0 Yes [id number] 4mg Take 1 Univers 4 mg 3-21 tablet by ity of disintegrat 00:00: mouth [place] ing tablet 00 every 8 Medica l (eight) Branch hours as needed for Nausea and Vomiting (N/V). sucralfate 2023-0 Yes [id number] 1g Take 1 U nivers 1 gram 3-21 tablet by ity of tablet 00:00: mouth [place] 00 before Medical meals and Branch at bedtime. ondansetron 2023-0 Yes [id number] 4mg Take 1 Univers 4 mg 3-21 tablet by ity of disintegrat 00:00: mouth [place] ing tablet 00 every 8 Medica l (eight) Branch hours as needed for Nausea and Vomiting (N/V). sucralfate 2023-0 Yes [id number] 1g Take 1 U nivers 1 gram 3-21 tablet by ity of tablet 00:00: mouth [place] 00 before Medical meals and Branch at bedtime. ondansetron 2023-0 Yes [id number] 4mg Take 1 Univers 4 mg 3-21 tablet by ity of disintegrat 00:00: mouth [place] ing tablet 00 every 8 Medica l (eight) Branch hours as needed for Nausea and Vomiting (N/V). sucralfate 2023-0 Yes [id number] 1g Take 1 U nivers 1 gram 3-21 tablet by ity of tablet 00:00: mouth [place] 00 before Medical meals and Branch at bedtime. ondansetron 2023-0 Yes [id number] 4mg Take 1 Univers 4 mg 3-21 tablet by ity of disintegrat 00:00: mouth [place] ing tablet 00 every 8 Medica l (eight) Branch hours as needed for Nausea and Vomiting (N/V). sucralfate 2023-0 Yes [id number] 1g Take 1 U nivers 1 gram 3-21 tablet by ity of tablet 00:00: mouth [place] 00 before Medical meals and Branch at bedtime. ondansetron 2023-0 Yes [id number] 4mg Take 1 Univers 4 mg 3-21 tablet by ity of disintegrat 00:00: mouth [place] ing tablet 00 every 8 Medica l (eight) Branch hours as needed for Nausea and Vomiting (N/V). sucralfate 2023-0 Yes [id number] 1g Take 1 U nivers 1 gram 3-21 tablet by ity of tablet 00:00: mouth [place] 00 before Medical meals and Branch at bedtime. ondansetron 2023-0 Yes [id number] 4mg Take 1 Univers 4 mg 3-21 tablet by ity of disintegrat 00:00: mouth [place] ing tablet 00 every 8 Medica l (eight) Branch hours as needed for Nausea and Vomiting (N/V). sucralfate 2023-0 Yes [id number] 1g Take 1 U nivers 1 gram 3-21 tablet by ity of tablet 00:00: mouth [place] 00 before Medical meals and Branch at bedtime. ondansetron 2023-0 Yes [id number] 4mg Take 1 Univers 4 mg 3-21 tablet by ity of disintegrat 00:00: mouth [place] ing tablet 00 every 8 Medica l (eight) Branch hours as needed for Nausea and Vomiting (N/V). sucralfate 2023-0 Yes [id number] 1g Take 1 U nivers 1 gram 3-21 tablet by ity of tablet 00:00: mouth [place] 00 before Medical meals and Branch at bedtime. pantoprazol 2023-0 2023- No [id number] 40mg Take 1 Univers e 40 mg EC 3-21 04-05 tablet by ity of tablet 00:00: 04:59 mouth in [place] 00 :00 the Medical morning Branch for 14 days. pantoprazol 2023-0 3- No [id number] 40mg Take 1 Univers e 40 mg [...] tablet by ity o f 00:00: mouth. [place] [facility] traMADoL 50 2023-0 Yes 50mg Take 1 Univ ers mg tablet 3-13 tablet by ity o f 00:00: mouth. [place] [facility] traMADoL 50 2023-0 Yes 50mg [...] tablet by ity o f 00:00: mouth. [place] [facility] traMADoL 50 3-0 Yes 50mg [...] tablet by ity o f 00:00: mouth. [place] [facility] ibuprofen 2023-0 Yes [id number] 600mg Take 1 Univers 600 mg 3-05 [id number] tablet by ity of tablet 00:00: mouth [place] [address] every 6 Medical (six) Branch hours as needed for Pain (scale 4-6). ibuprofen 2023-0 Yes [id number] 600mg Take 1 Univers 600 mg 3-05 [id number] tablet by ity of tablet 00:00: mouth [place] [address] every 6 Medical (six) Branch hours as needed for Pain (scale 4-6). ibuprofen 2023-0 Yes [id number] 600mg Take 1 Univers 600 mg 3-05 [id number] tablet by ity of tablet 00:00: mouth [place] [address] every 6 Medical (six) Branch hours as needed for Pain (scale 4-6). ibuprofen 2023-0 2023- No [id number] 600mg Take 1 Univers 600 mg 3-05 03-21 [id number] tablet by ity o f tablet 00:00: 00:00 mouth [place] 00 :00 every 6 Medical (six) Branch hours as needed for Pain (scale 4-6). citalopram 2023-0 Yes 10mg Take 1 Unive rs 10 mg 2-17 tablet by ity of tablet 00:00: mouth in [place] the Medical morning. Branch QUEtiapine 2023-0 Yes Univers 400 mg 2-17 ity of tablet 00:00: [place] 00 Medical Branch gabapentin 2023-0 Yes Univers 600 mg 2-17 ity of tablet 00:00: [place] 00 Medical Branch citalopram 2023-0 Yes 10mg Take 1 Unive rs 10 mg 2-17 tablet by ity of tablet 00:00: mouth in [place] the Medical morning. Branch QUEtiapine 2023-0 Yes Univers 400 mg 2-17 ity of tablet 00:00: [place] 00 Medical Branch gabapentin 2023-0 Yes Univers 600 mg 2-17 ity of tablet 00:00: [place] 00 Medical Branch citalopram 2023-0 Yes 10mg Take 1 Unive rs 10 mg 2-17 tablet by ity of tablet 00:00: mouth in [place] the Medical morning. Branch QUEtiapine 2023-0 Yes Univers 400 mg 2-17 ity of tablet 00:00: [place] 00 Medical Branch gabapentin 2023-0 Yes Univers 600 mg 2-17 ity of tablet 00:00: [place] 00 Medical Branch citalopram 2023-0 Yes 10mg Take 1 Unive rs 10 mg 2-17 tablet by ity of tablet 00:00: mouth in [place] the Medical morning. Branch QUEtiapine 2023-0 Yes Univers 400 mg 2-17 ity of tablet 00:00: [place] 00 Medical Branch gabapentin 2023-0 Yes Univers 600 mg 2-17 ity of tablet 00:00: [place] 00 Medical Branch citalopram 2023-0 Yes 10mg Take 1 Unive rs 10 mg 2-17 tablet by ity of tablet 00:00: mouth in [place] the Medical morning. Branch QUEtiapine 2023-0 Yes Univers 400 mg 2-17 ity of tablet 00:00: [place] 00 Medical Branch gabapentin 2023-0 Yes Univers 600 mg 2-17 ity of tablet 00:00: [place] 00 Medical Branch citalopram 2023-0 Yes 10mg Take 1 Unive rs 10 mg 2-17 tablet by ity of tablet 00:00: mouth in [place] the Medical morning. Branch QUEtiapine 2023-0 Yes Univers 400 mg 2-17 ity of tablet 00:00: [place] 00 Medical Branch gabapentin 2023-0 Yes Univers 600 mg 2-17 ity of tablet 00:00: [place] 00 Medical Branch citalopram 2023-0 Yes 10mg Take 1 Unive rs 10 mg 2-17 tablet by ity of tablet 00:00: mouth in [place] the Medical morning. Branch QUEtiapine 2023-0 Yes Univers 400 mg 2-17 ity of tablet 00:00: [place] 00 Medical Branch gabapentin 2023-0 Yes Univers 600 mg 2-17 ity of tablet 00:00: [place] 00 Medical Branch citalopram 2023-0 Yes 10mg Take 1 Unive rs 10 mg 2-17 tablet by ity of tablet 00:00: mouth in [place] the Medical morning. Branch QUEtiapine 2023-0 Yes Univers 400 mg 2-17 ity of tablet 00:00: [place] 00 Medical Branch gabapentin 2023-0 Yes Univers 600 mg 2-17 ity of tablet 00:00: [place] 00 Medical Branch citalopram 2023-0 Yes 10mg Take 1 Unive rs 10 mg 2-17 tablet by ity of tablet 00:00: mouth in [place] the Medical morning. Branch QUEtiapine 2023-0 Yes Univers 400 mg 2-17 ity of tablet 00:00: [place] 00 Medical Branch gabapentin 2023-0 Yes Univers 600 mg 2-17 ity of tablet 00:00: [place] 00 Medical Branch citalopram 2023-0 Yes 10mg Take 1 Unive rs 10 mg 2-17 tablet by ity of tablet 00:00: mouth in [place] the Medical morning. Branch QUEtiapine 2023-0 Yes Univers 400 mg 2-17 ity of tablet 00:00: [place] 00 Medical Branch gabapentin 2023-0 Yes Univers 600 mg 2-17 ity of tablet 00:00: [place] 00 Medical Branch citalopram 2023-0 Yes 10mg Take 1 Unive rs 10 mg 2-17 tablet by ity of tablet 00:00: mouth in [place] the Medical morning. Branch QUEtiapine 2023-0 Yes Univers 400 mg 2-17 ity of tablet 00:00: [place] 00 Medical Branch gabapentin 2023-0 Yes Univers 600 mg 2-17 ity of tablet 00:00: [place] 00 Medical Branch methylPREDN 2023-0 Yes [id number] Take by Univers ISolone 2-11 mouth ity of (MEDROL, 00:00: SEE-INSTRU [place]A,) 4 mg 00 CTIONS. Medica l tablets follow Branch package directions methylPREDN 2023-0 Yes [id number] Take by Univers ISolone 2-11 mouth ity of (MEDROL, 00:00: SEE-INSTRU [place],) 4 mg 00 CTIONS. Medica l tablets follow Branch package directions methylPREDN 2023-0 Yes [id number] Take by Univers ISolone 2-11 mouth ity of (MEDROL, 00:00: SEE-INSTRU [place],) 4 mg 00 CTIONS. Medica l tablets follow Branch package directions methylPREDN 2023-0 Yes [id number] Take by Univers ISolone 2-11 mouth ity of (MEDROL, 00:00: SEE-INSTRU [place],) 4 mg 00 CTIONS. Medica l tablets follow Branch package directions methylPREDN 2023-0 Yes [id number] Take by Univers ISolone 2-11 mouth ity of (MEDROL, 00:00: SEE-INSTRU [place],) 4 mg 00 CTIONS. Medica l tablets follow Branch package directions methylPREDN 2023-0 Yes [id number] Take by Univers ISolone 2-11 mouth ity of (MEDROL, 00:00: SEE-INSTRU [place],) 4 mg 00 CTIONS. Medica l tablets follow Branch package directions methylPREDN 2023-0 Yes [id number] Take by Univers ISolone 2-11 mouth ity of (MEDROL, 00:00: SEE-INSTRU [place],) 4 mg 00 CTIONS. Medica l tablets follow Branch package directions methylPREDN 2023-0 Yes [id number] Take by Univers ISolone 2-11 mouth ity of (MEDROL, 00:00: SEE-INSTRU [place],) 4 mg 00 CTIONS. Medica l tablets follow Branch package directions methylPREDN 2023-0 Yes [id number] Take by Univers ISolone 2-11 mouth ity of (MEDROL, 00:00: SEE-INSTRU [place],) 4 mg 00 CTIONS. Medica l tablets follow Branch package directions methylPREDN 2023-0 Yes [id number] Take by Univers ISolone 2-11 mouth ity of (MEDROL, 00:00: SEE-INSTRU [place],) 4 mg 00 CTIONS. Medica l tablets follow Branch package directions methylPREDN 3-0 Yes [id number] Take by Univers ISolone 06-23 mouth ity of (MEDROL, 00:00: SEE-INSTRU [place],) 4 mg 00 CTIONS. Medica l tablets follow Branch package directions methylPREDN 3-0 Yes [id number] Take by Univers ISolone 06-23 mouth ity of (MEDROL, 00:00: SEE-INSTRU [place],) 4 mg 00 CTIONS. Medica l tablets follow Branch package directions methylPREDN 3-0 Yes [id number] Take by Univers ISolone 11 mouth ity of (MEDROL, 00:00: SEE-INSTRU [place],) 4 mg 00 CTIONS. Medica l tablets follow Branch package directions methylPREDN 3-0 Yes [id number] Take by Univers ISolone 06-23 mouth ity of (MEDROL, 00:00: SEE-INSTRU [place],) 4 mg 00 CTIONS. Medica l tablets follow Branch package directions bromphenira 2022- No [id number] 5mL Take 5 mL Univers mine-pseudo 06-23 by mouth 4 i ty of ephedrine-D 00:00: 05:59 (four) [place] (BROMFED 00 :00 times Medical DM) 2-30-10 daily as Bran ch mg/5 mL needed for syrup Cold symptoms for up to 10 days. methocarbam 2022- No [id number] 750mg Take 1 Univers oL 750 mg 06-23 [id number] tablet by it y of tablet 00:00: [...] IV ity of PF 20:15: 21:00 [place], [place] injection 00 :00 ONCE, 1 Medical 10 [...] IV ity of (BENADRYL) 19:15: 19:42 [place], [place] injection 00 :00 ONCE, 1 Medical 25 [...] 05/05/22 at 1315, Routine butalbital- 2021-05 Yes [id number] 1{tbl} Take 1 Univers acetaminoph 2-24 tablet by ity of en-caff 00:00: mouth [place] 50-325-40 00 every 4 Medical mg tablet (four) Branch hours as needed for Pain (scale 7-10). butalbital- 2021-05 Yes [id number] 1{tbl} Take 1 Univers acetaminoph 2-24 tablet by ity of en-caff 00:00: mouth [place] 50-325-40 00 every 4 Medical mg tablet (four) Branch hours as needed for Pain (scale 7-10). butalbital- 2021-05 Yes [id number] 1{tbl} Take 1 Univers acetaminoph 2-24 tablet by ity of en-caff 00:00: mouth [place] 50-325-40 00 every 4 Medical mg tablet (four) Branch hours as needed for Pain (scale 7-10). butalbital- 2021-05 Yes [id number] 1{tbl} Take 1 Univers acetaminoph 2-24 tablet by ity of en-caff 00:00: mouth [place] 50-325-40 00 every 4 Medical mg tablet (four) Branch hours as needed for Pain (scale 7-10). butalbital- 2021-05 Yes [id number] 1{tbl} Take 1 Univers acetaminoph 2-24 tablet by ity of en-caff 00:00: mouth [place] 50-325-40 00 every 4 Medical mg tablet (four) Branch hours as needed for Pain (scale 7-10). butalbital- 2021-05 Yes [id number] 1{tbl} Take 1 Univers acetaminoph 2-24 tablet by ity of en-caff 00:00: mouth [place] 50-325-40 00 every 4 Medical mg tablet (four) Branch hours as needed for Pain (scale 7-10). butalbital2021-05 Yes [id number] 1{tbl} Take 1 Univers acetaminoph 2-24 tablet by ity of en-caff 00:00: mouth [place] 50-325-40 00 every 4 Medical mg tablet (four) Branch hours as needed for Pain (scale 7-10). butalbital- 2021-05 Yes [id number] 1{tbl} Take 1 Univers acetaminoph 2-24 tablet by ity of en-caff 00:00: mouth [place] 50-325-40 00 every 4 Medical mg tablet (four) Branch hours as needed for Pain (scale 7-10). butalbital- 2021-05 Yes [id number] 1{tbl} Take 1 Univers acetaminoph 2-24 tablet by ity of en-caff 00:00: mouth [place] 50-325-40 00 every 4 Medical mg tablet (four) Branch hours as needed for Pain (scale 7-10). butalbital2021-05 Yes [id number] 1{tbl} Take 1 [facility] acetaminoph 2-24 tablet by ity of en-caff 00:00: mouth [place] 50-325-40 00 every 4 Medical mg tablet (four) Branch hours as needed for Pain (scale 7-10). butalbital2021-05 Yes [id number] 1{tbl} Take 1 [facility] acetaminoph 2-24 tablet by ity of en-caff 00:00: mouth [place] 50-325-40 00 every 4 Medical mg tablet (four) Branch hours as needed for Pain (scale 7-10). butalbital2021-05 Yes [id number] 1{tbl} Take 1 [facility] acetaminoph 2-24 tablet by ity of en-caff 00:00: mouth [place] 50-325-40 00 every 4 Medical mg tablet (four) Branch hours as needed for Pain (scale 7-10). butalbital2021-05 Yes [id number] 1{tbl} Take 1 [facility] acetaminoph 2-24 tablet by ity of en-caff 00:00: mouth [place] 50-325-40 00 every 4 Medical mg tablet (four) Branch hours as needed for Pain (scale 7-10). butalbital2021-05 Yes [id number] 1{tbl} Take 1 [facility] acetaminoph 2-24 tablet by ity of en-caff 00:00: mouth [place] 50-325-40 00 every 4 Medical mg tablet (four) Branch hours as needed for Pain (scale 7-10). butalbital2021-05 Yes [id number] 1{tbl} Take 1 [facility] acetaminoph 2-24 tablet by ity of en-caff 00:00: mouth [place] 50-325-40 00 every 4 Medical mg tablet (four) Branch hours as needed for Pain (scale 7-10). butalbital2021-05 Yes [id number] 1{tbl} Take 1 [facility] acetaminoph 2-24 tablet [...] 00 :00 dose, On Medica l mg [facility] 04/26/22 at 0945, [place] NaCl [...] 00 :00 dose, On Medi yessi mg [facility] Branch 04/26/22 at 0845, Routine cephALEXin 2021-05- No [id number] 500mg Take 1 [facility] (KEFLEX) 2-15 12-23 capsule by ity of 500 mg 00:00: 05:59 mouth in [place] capsule 00 :00 the Medical morning Branch [...] Nausea and Vomiting (N/V). galcanezuma 2021-05 Yes [id number] 120mg inject 120 [facility] b-gnlm 1-28 mg under ity of prefilled 00:00: [place] (EMGALITY) 00 once every Med ical subcutaneou month. Branch s injection galcanezuma 2021-05 Yes [id number] 120mg inject 120 [facility] b-gnlm 1-28 mg under ity of prefilled 00:00: [place] (EMGALITY) 00 once every Med ical subcutaneou month. Branch s injection galcanezuma 2021-05 Yes [id number] 120mg inject 120 [facility] b-gnlm 1-28 mg under ity of prefilled 00:00: [place] (EMGALITY) 00 once every Med ical subcutaneou month. Branch s injection galcanezuma 2021-05 Yes [id number] 120mg inject 120 [facility] b-gnlm 1-28 mg under ity of prefilled 00:00: [place] (EMGALITY) 00 once every Med ical subcutaneou month. Branch s injection galcanezuma 2021-05 Yes [id number] 120mg inject 120 [facility] b-gnlm 1-28 mg under ity of prefilled 00:00: [place] (EMGALITY) 00 once every Med ical subcutaneou month. Branch s injection galcanezuma 2021-05 Yes [id number] 120mg inject 120 [facility] b-gnlm 1-28 mg under ity of prefilled 00:00: [place] (EMGALITY) 00 once every Med ical subcutaneou month. Branch s injection galcanezuma 2021-05 Yes [id number] 120mg inject 120 [facility] b-gnlm 1-28 mg under ity of prefilled 00:00: [place] (EMGALITY) 00 once every Med ical subcutaneou month. Branch s injection galcanezuma 2021-05 Yes [id number] 120mg inject 120 [facility] b-gnlm 1-28 mg under ity of prefilled 00:00: [place] (EMGALITY) 00 once every Med ical subcutaneou month. Branch s injection galcanezuma 2021-05 Yes [id number] 120mg inject 120 [facility] b-gnlm 1-28 mg under ity of prefilled 00:00: [place] (EMGALITY) 00 once every Med ical subcutaneou month. Branch s injection galcanezuma 2021-05 Yes [id number] 120mg inject 120 [facility] b-gnlm 1-28 mg under ity of prefilled 00:00: [place] (EMGALITY) 00 once every Med ical subcutaneou month. Branch s injection galcanezuma 2021-05 Yes [id number] 120mg inject 120 [facility] b-gnlm 1-28 mg under ity of prefilled 00:00: [place] (EMGALITY) 00 once every Med ical subcutaneou month. Branch s injection galcanezuma 2021-05 Yes [id number] 120mg inject 120 [facility] b-gnlm 1-28 mg under ity of prefilled 00:00: [place] (EMGALITY) 00 once every Med ical subcutaneou month. Branch s injection galcanezuma 2021-05 Yes [id number] 120mg inject 120 [facility] b-gnlm 1-28 mg under ity of prefilled 00:00: the [place] (EMGALITY) 00 once every Med ical subcutaneou month. Branch s injection galcanezuma 2021-05 Yes [id number] 120mg inject 120 [facility] b-gnlm 1-28 mg under ity of prefilled 00:00: the [place] (EMGALITY) 00 once every Med ical subcutaneou month. Branch s injection galcanezuma 2021-05 Yes [id number] 120mg inject 120 [facility] b-gnlm 1-28 mg under ity of prefilled 00:00: the [place] (EMGALITY) 00 once every Med ical subcutaneou month. Branch s injection galcanezuma 2021-05 Yes [id number] 120mg inject 120 [facility] b-gnlm 1-28 mg under ity of prefilled 00:00: the [place] (EMGALITY) 00 once every Med ical subcutaneou month. Branch s injection galcanezuma 2021-05 Yes [id number] 120mg inject 120 [facility] b-gnlm 1-28 mg under ity of prefilled 00:00: the [place] (EMGALITY) 00 once every Med ical subcutaneou month. Branch s injection galcanezuma 2021-05 Yes [id number] 120mg inject 120 [facility] b-gnlm 1-28 mg under ity of prefilled 00:00: the [place] (EMGALITY) 00 once every Med ical subcutaneou month. Branch s injection galcanezuma 2021-05 Yes [id number] 120mg inject 120 [facility] b-gnlm 1-28 mg under ity of prefilled 00:00: the [place] (EMGALITY) 00 once every Med ical subcutaneou month. Branch s injection galcanezuma 2021-05 Yes [id number] 120mg inject 120 [facility] b-gnlm 1-28 mg under ity of prefilled 00:00: the [place] (EMGALITY) 00 once every Med ical subcutaneou month. Branch s injection galcanezuma 2021-05 Yes [id number] 120mg inject 120 [facility] b-gnlm 1-28 mg under ity of prefilled 00:00: the [place] (EMGALITY) 00 once every Med ical subcutaneou month. Branch s injection galcanezuma 2021-05 Yes [id number] 120mg inject 120 [facility] b-gnlm 1-28 mg under ity of prefilled 00:00: the [place] (EMGALITY) 00 once every Med ical subcutaneou month. Branch s injection galcanezuma 2021-05 Yes [id number] 120mg inject 120 [facility] b-gnlm 1-28 mg under ity of prefilled 00:00: the [place] (EMGALITY) 00 once every Med ical subcutaneou month. Branch s injection galcanezuma 2021-05 Yes [id number] 120mg inject 120 [facility] b-gnlm 1-28 mg under ity of prefilled 00:00: the [place] (EMGALITY) 00 once every Med ical subcutaneou month. Branch s injection galcanezuma 2021-05 Yes [id number] 120mg inject 120 [facility] b-gnlm 1-28 mg under ity of prefilled 00:00: the [place] (EMGALITY) 00 once every Med ical subcutaneou month. Branch s injection galcanezuma 2021-05 Yes [id number] 120mg inject 120 [facility] b-gnlm 1-28 mg under ity of prefilled 00:00: the [place] (EMGALITY) 00 once every Med ical subcutaneou month. Branch s injection galcanezuma 2021-05 Yes [id number] 120mg inject 120 [facility] b-gnlm 1-28 mg under ity of prefilled 00:00: the [place] (EMGALITY) 00 once every Med ical subcutaneou month. Branch s injection galcanezuma 2021-05 Yes [id number] 120mg inject 120 [facility] b-gnlm 1-28 mg under ity of prefilled 00:00: the [place] (EMGALITY) 00 once every Med ical subcutaneou month. Branch s injection galcanezuma 2021-05 Yes [id number] 120mg inject 120 [facility] b-gnlm 1-28 mg [...] 13 :00 Medical Branch rizatriptan 2021-05 Yes [id number] 10mg Take 1 [facility] 10 mg 1-12 tablet by ity of tablet 00:00: mouth as [place] 00 needed for Medical Migraine. Branch May repeat in 2 hours if needed Butalbital- 2021-05 Yes [id number] 1{capsu Take 1 [facility] Acetaminoph 1-12 le} [...] daily. Indication s: headache rizatriptan 2021-05 Yes [id number] 10mg Take 1 [facility] 10 mg 1-12 tablet by ity of tablet 00:00: mouth as [place] 00 needed for Medical Migraine. Branch May repeat in 2 hours if needed Butalbital- 2021-05 Yes [id number] 1{capsu Take 1 [facility] Acetaminoph 1-12 le} [...] daily. Indication s: headache rizatriptan 2021-05 Yes [id number] 10mg Take 1 [facility] 10 mg 1-12 tablet by ity of tablet 00:00: mouth as [place] 00 needed for Medical Migraine. Branch May repeat in 2 hours if needed Butalbital- 2021-05 Yes [id number] 1{capsu Take 1 [facility] Acetaminoph 1-12 le} [...] daily. Indication s: headache rizatriptan 2021-05 Yes [id number] 10mg Take 1 [facility] 10 mg 1-12 tablet by ity of tablet 00:00: mouth as [place] 00 needed for Medical Migraine. Branch May repeat in 2 hours if needed Butalbital- 2021-05 Yes [id number] 1{capsu Take 1 [facility] Acetaminoph 1-12 le} capsule by it y of en-Caff 00:00: mouth [place] (FIORICET) 00 every 6 Medica l 50-300-40 (six) Branch mg per hours as capsule needed for Other (headache) . rizatriptan 2021-05 Yes [id number] 10mg Take 1 [facility] 10 mg 1-12 tablet by ity of tablet 00:00: mouth as [place] 00 needed for Medical Migraine. Branch May repeat in 2 hours if needed Butalbital- 2021-05 Yes [id number] 1{capsu Take 1 [facility] Acetaminoph 1-12 le} capsule by it y of en-Caff 00:00: mouth [place] (FIORICET) 00 every 6 Medica l 50-300-40 (six) Branch mg per hours as capsule needed for Other (headache) . rizatriptan 2021-05 Yes [id number] 10mg Take 1 [facility] 10 mg 1-12 tablet by ity of tablet 00:00: mouth as [place] 00 needed for Medical Migraine. Branch May repeat in 2 hours if needed Butalbital- 2021-05 Yes [id number] 1{capsu Take 1 [facility] Acetaminoph 1-12 le} capsule by it y of en-Caff 00:00: mouth [place] (FIORICET) 00 every 6 Medica l 50-300-40 (six) Branch mg per hours as capsule needed for Other (headache) . rizatriptan 2021-05 Yes [id number] 10mg Take 1 [facility] 10 mg 1-12 tablet by ity of tablet 00:00: mouth as [place] 00 needed for Medical Migraine. Branch May repeat in 2 hours if needed Butalbital- 2021-05 Yes [id number] 1{capsu Take 1 [facility] Acetaminoph 1-12 le} capsule by it y of en-Caff 00:00: mouth [place] (FIORICET) 00 every 6 Medica l 50-300-40 (six) Branch mg per hours as capsule needed for Other (headache) . rizatriptan 2021-05 Yes [id number] 10mg Take 1 [facility] 10 mg 1-12 tablet by ity of tablet 00:00: mouth as [place] 00 needed for Medical Migraine. Branch May repeat in 2 hours if needed Butalbital- 2021-05 Yes [id number] 1{capsu Take 1 [facility] Acetaminoph 1-12 le} capsule by it y of en-Caff 00:00: mouth [place] (FIORICET) 00 every 6 Medica l 50-300-40 (six) Branch mg per hours as capsule needed for Other (headache) . rizatriptan 2021-05 Yes [id number] 10mg Take 1 [facility] 10 mg 1-12 tablet by ity of tablet 00:00: mouth as [place] 00 needed for Medical Migraine. Branch May repeat in 2 hours if needed Butalbital- 2021-05 Yes [id number] 1{capsu Take 1 [facility] Acetaminoph 1-12 le} capsule by it y of en-Caff 00:00: mouth [place] (FIORICET) 00 every 6 Medica l 50-300-40 (six) Branch mg per hours as capsule needed for Other (headache) . rizatriptan 2021-05 Yes [id number] 10mg Take 1 [facility] 10 mg 1-12 tablet by ity of tablet 00:00: mouth as [place] 00 needed for Medical Migraine. Branch May repeat in 2 hours if needed Butalbital- 2021-05 Yes [id number] 1{capsu Take 1 [facility] Acetaminoph 1-12 le} capsule by it y of en-Caff 00:00: mouth [place] (FIORICET) 00 every 6 Medica l 50-300-40 (six) Branch mg per hours as capsule needed for Other (headache) . rizatriptan 2021-05 Yes [id number] 10mg Take 1 [facility] 10 mg 1-12 tablet by ity of tablet 00:00: mouth as [place] 00 needed for Medical Migraine. Branch May repeat in 2 hours if needed Butalbital- 2021-05 Yes [id number] 1{capsu Take 1 [facility] Acetaminoph 1-12 le} capsule by it y of en-Caff 00:00: mouth [place] (FIORICET) 00 every 6 Medica l 50-300-40 (six) Branch mg per hours as capsule needed for Other (headache) . rizatriptan 2021-05 Yes [id number] 10mg Take 1 [facility] 10 mg 1-12 tablet by ity of tablet 00:00: mouth as [place] 00 needed for Medical Migraine. Branch May repeat in 2 hours if needed Butalbital- 2021-05 Yes [id number] 1{capsu Take 1 [facility] Acetaminoph 1-12 le} capsule by it y of en-Caff 00:00: mouth [place] (FIORICET) 00 every 6 Medica l 50-300-40 (six) Branch mg per hours as capsule needed for Other (headache) . rizatriptan 2021-05 Yes [id number] 10mg Take 1 [facility] 10 mg 1-12 tablet by ity of tablet 00:00: mouth as [place] 00 needed for Medical Migraine. Branch May repeat in 2 hours if needed Butalbital- 2021-05 Yes [id number] 1{capsu Take 1 [facility] Acetaminoph 1-12 le} capsule by it y of en-Caff 00:00: mouth [place] (FIORICET) 00 every 6 Medica l 50-300-40 (six) Branch mg per hours as capsule needed for Other (headache) . rizatriptan 2021-05 Yes [id number] 10mg Take 1 [facility] 10 mg 1-12 tablet by ity of tablet 00:00: mouth as [place] 00 needed for Medical Migraine. Branch May repeat in 2 hours if needed Butalbital- 2021-05 Yes [id number] 1{capsu Take 1 [facility] Acetaminoph 1-12 le} capsule by it y of en-Caff 00:00: mouth [place] (FIORICET) 00 every 6 Medica l 50-300-40 (six) Branch mg per hours as capsule needed for Other (headache) . rizatriptan 2021-05 Yes [id number] 10mg Take 1 [facility] 10 mg 1-12 tablet by ity of tablet 00:00: mouth as [place] 00 needed for Medical Migraine. Branch May repeat in 2 hours if needed Butalbital- 2021-05 Yes [id number] 1{capsu Take 1 [facility] Acetaminoph 1-12 le} capsule by it y of en-Caff 00:00: mouth [place] (FIORICET) 00 every 6 Medica l 50-300-40 (six) Branch mg per hours as capsule needed for Other (headache) . rizatriptan 2021-05 Yes [id number] 10mg Take 1 [facility] 10 mg 1-12 tablet by ity of tablet 00:00: mouth as [place] 00 needed for Medical Migraine. Branch May repeat in 2 hours if needed Butalbital- 2021-05 Yes [id number] 1{capsu Take 1 [facility] Acetaminoph 1-12 le} capsule by it y of en-Caff 00:00: mouth [place] (FIORICET) 00 every 6 Medica l 50-300-40 (six) Branch mg per hours as capsule needed for Other (headache) . rizatriptan 2021-05 Yes [id number] 10mg Take 1 [facility] 10 mg 1-12 tablet by ity of tablet 00:00: mouth as [place] 00 needed for Medical Migraine. Branch May repeat in 2 hours if needed Butalbital- 2021-05 Yes [id number] 1{capsu Take 1 [facility] Acetaminoph 1-12 le} capsule by it y of en-Caff 00:00: mouth [place] (FIORICET) 00 every 6 Medica l 50-300-40 (six) Branch mg per hours as capsule needed for Other (headache) . rizatriptan 2021-05 Yes [id number] 10mg Take 1 [facility] 10 mg 1-12 tablet by ity of tablet 00:00: mouth as [place] 00 needed for Medical Migraine. Branch May repeat in 2 hours if needed Butalbital- 2021-05 Yes [id number] 1{capsu Take 1 [facility] Acetaminoph 1-12 le} capsule by it y of en-Caff 00:00: mouth [place] (FIORICET) 00 every 6 Medica l 50-300-40 (six) Branch mg per hours as capsule needed for Other (headache) . rizatriptan 2021-05 Yes [id number] 10mg Take 1 [facility] 10 mg 1-12 tablet by ity of tablet 00:00: mouth as [place] 00 needed for Medical Migraine. Branch May repeat in 2 hours if needed Butalbital- 2021-05 Yes [id number] 1{capsu Take 1 [facility] Acetaminoph 1-12 le} capsule by it y of en-Caff 00:00: mouth [place] (FIORICET) 00 every 6 Medica l 50-300-40 (six) Branch mg per hours as capsule needed for Other (headache) . rizatriptan 2021-05 Yes [id number] 10mg Take 1 [facility] 10 mg 1-12 tablet by ity of tablet 00:00: mouth as [place] 00 needed for Medical Migraine. Branch May repeat in 2 hours if needed Butalbital- 2021-05 Yes [id number] 1{capsu Take 1 [facility] Acetaminoph 1-12 le} capsule by it y of en-Caff 00:00: mouth [place] (FIORICET) 00 every 6 Medica l 50-300-40 (six) Branch mg per hours as capsule needed for Other (headache) . rizatriptan 2021-05 Yes [id number] 10mg Take 1 [facility] 10 mg 1-12 tablet by ity of tablet 00:00: mouth as [place] 00 needed for Medical Migraine. Branch May repeat in 2 hours if needed Butalbital- 2021-05 Yes [id number] 1{capsu Take 1 [facility] Acetaminoph 1-12 le} capsule by it y of en-Caff 00:00: mouth [place] (FIORICET) 00 every 6 Medica l 50-300-40 (six) Branch mg per hours as capsule needed for Other (headache) . rizatriptan 2021-05 Yes [id number] 10mg Take 1 [facility] 10 mg 1-12 tablet by ity of tablet 00:00: mouth as [place] 00 needed for Medical Migraine. Branch May repeat in 2 hours if needed Butalbital- 2021-05 Yes [id number] 1{capsu Take 1 [facility] Acetaminoph 1-12 le} capsule by it y of en-Caff 00:00: mouth [place] (FIORICET) 00 every 6 Medica l 50-300-40 (six) Branch mg per hours as capsule needed for Other (headache) . rizatriptan 2021-05 Yes [id number] 10mg Take 1 [facility] 10 mg 1-12 tablet by ity of tablet 00:00: mouth as [place] 00 needed for Medical Migraine. Branch May repeat in 2 hours if needed Butalbital- 2021-05 Yes [id number] 1{capsu Take 1 [facility] Acetaminoph 1-12 le} capsule by it y of en-Caff 00:00: mouth [place] (FIORICET) 00 every 6 Medica l 50-300-40 (six) Branch mg per hours as capsule needed for Other (headache) . rizatriptan 2021-05 Yes [id number] 10mg Take 1 [facility] 10 mg 1-12 tablet by ity of tablet 00:00: mouth as [place] 00 needed for Medical Migraine. Branch May repeat in 2 hours if needed Butalbital- 2021-05 Yes [id number] 1{capsu Take 1 [facility] Acetaminoph 1-12 le} capsule by it y of en-Caff 00:00: mouth [place] (FIORICET) 00 every 6 Medica l 50-300-40 (six) Branch mg per hours as capsule needed for Other (headache) . rizatriptan 2021-05 Yes [id number] 10mg Take 1 [facility] 10 mg 1-12 tablet by ity of tablet 00:00: mouth as [place] 00 needed for Medical Migraine. Branch May repeat in 2 hours if needed Butalbital- 2021-05 Yes [id number] 1{capsu Take 1 [facility] Acetaminoph 1-12 le} capsule by it y of en-Caff 00:00: mouth [place] (FIORICET) 00 every 6 Medica l 50-300-40 (six) Branch mg per hours as capsule needed for Other (headache) . rizatriptan 2021-05 Yes [id number] 10mg Take 1 [facility] 10 mg 1-12 tablet by ity of tablet 00:00: mouth as [place] 00 needed for Medical Migraine. Branch May repeat in 2 hours if needed Butalbital- 2021-05 Yes [id number] 1{capsu Take 1 [facility] Acetaminoph 1-12 le} capsule by it y of en-Caff 00:00: mouth [place] (FIORICET) 00 every 6 Medica l 50-300-40 (six) Branch mg per hours as capsule needed for Other (headache) . rizatriptan 2021-05 Yes [id number] 10mg Take 1 [facility] 10 mg 1-12 tablet by ity of tablet 00:00: mouth as [place] 00 needed for Medical Migraine. Branch May repeat in 2 hours if needed Butalbital- 2021-05 Yes [id number] 1{capsu Take 1 [facility] Acetaminoph 1-12 le} capsule by it y of en-Caff 00:00: mouth [place] (FIORICET) 00 every 6 Medica l 50-300-40 (six) Branch mg per hours as capsule needed for Other (headache) . rizatriptan 2021-05 Yes [id number] 10mg Take 1 [facility] 10 mg 1-12 tablet by ity of tablet 00:00: mouth as [place] 00 needed for Medical Migraine. Branch May repeat in 2 hours if needed Butalbital- 2021-05 Yes [id number] 1{capsu Take 1 [facility] Acetaminoph 1-12 le} capsule by it y of en-Caff 00:00: mouth [place] (FIORICET) 00 every 6 Medica l 50-300-40 (six) Branch mg per hours as capsule needed for Other (headache) . rizatriptan 2021-05 Yes [id number] 10mg Take 1 [facility] 10 mg 1-12 tablet by ity of tablet 00:00: mouth as [place] 00 needed for Medical Migraine. Branch May repeat in 2 hours if needed Butalbital- 2021-05 Yes [id number] 1{capsu Take 1 [facility] Acetaminoph 1-12 le} capsule by it y of en-Caff 00:00: mouth [place] (FIORICET) 00 every 6 Medica l 50-300-40 (six) Branch mg per hours as capsule needed for Other (headache) . rizatriptan 2021-05 Yes [id number] 10mg Take 1 [facility] 10 mg 1-12 tablet by ity of tablet 00:00: mouth as [place] 00 needed for Medical Migraine. Branch May repeat in 2 hours if needed Butalbital- 2021-05 Yes [id number] 1{capsu Take 1 [facility] Acetaminoph 1-12 le} capsule by it y of en-Caff 00:00: mouth [place] (FIORICET) 00 every 6 Medica l 50-300-40 (six) Branch mg per hours as capsule needed for Other (headache) . rizatriptan 2021-05 Yes [id number] 10mg Take 1 [facility] 10 mg 1-12 tablet by ity of tablet 00:00: mouth as [place] 00 needed for Medical Migraine. Branch May repeat in 2 hours if needed Butalbital- 2021-05 Yes [id number] 1{capsu Take 1 [facility] Acetaminoph 1-12 le} capsule by it y of en-Caff 00:00: mouth [place] (FIORICET) 00 every 6 Medica l 50-300-40 (six) Branch mg per hours as capsule needed for Other (headache) . rizatriptan 2021-05 Yes [id number] 10mg Take 1 [facility] 10 mg 1-12 tablet by ity of tablet 00:00: mouth as [place] 00 needed for Medical Migraine. Branch May repeat in 2 hours if needed Butalbital- 2021-05 Yes [id number] 1{capsu Take 1 [facility] Acetaminoph 1-12 le} capsule by it y of en-Caff 00:00: mouth [place] (FIORICET) 00 every 6 Medica l 50-300-40 (six) Branch mg per hours as capsule needed for Other (headache) . rizatriptan 2021-05 Yes [id number] 10mg Take 1 [facility] 10 mg 1-12 tablet by ity of tablet 00:00: mouth as [place] 00 needed for Medical Migraine. Branch May repeat in 2 hours if needed Butalbital- 2021-05 Yes [id number] 1{capsu Take 1 [facility] Acetaminoph 1-12 le} [...] ONCE, 1 Medical 50 mcg dose, On [facility] 03/15/22 at 1030, Routine proMETHazin 2021-05 No 25mg 25 mg, Uni vers e 05-15 Oral, ity of (PHENERGAN) 14:45: 14:55 [place]CE, 1 [place] 25 00 :00 dose, On Medica l mg [facility] 03/15/22 at 0945, [place] FENTanyl PF 2021-05 No 50ug 50 mcg, Un sushant (SUBLIMAZE 05-15 Slow IV ity o f (PF)) 14:45: 13:58 Push, [place] injection 00 :00 ONCE, 1 Medical 50 mcg dose, On Branch [facility] 03/15/22 at 0945, Routine ondansetron 2021-05 No 4mg 4 mg, Slow Univers (ZOFRAN 1-03 11-03 IV Push, ity of (PF)) 14:00: 13:58 ONCE, 1 [place] injection 4 00 :00 dose, On Medi yessi mg [facility] 03/15/22 at 0900, [place] ondansetron 2021-05 Yes [id number] 4mg Take 1 Univers 4 mg 1-03 tablet by ity of disintegrat 00:00: mouth [place] ing tablet 00 every 8 Medica l (eight) Branch hours as needed for Nausea and Vomiting (N/V). ketorolac 2021-05 Yes [id number] 10mg Take 1 U nivers 10 mg 1-03 tablet by ity of tablet 00:00: mouth [place] 00 every 6 Medical (six) Branch hours as needed for Pain (scale 7-10). proMETHazin 2021-05 Yes [id number] 25mg Take 1 Univers e 25 mg 1-03 tablet by ity of tablet 00:00: mouth [place] 00 every 6 Medical (six) Branch hours as needed for N/V unresponsi ve to Ondansetro n. ondansetron 2021-05 Yes [id number] 4mg Take 1 [facility] 4 mg 1-03 tablet by ity of disintegrat 00:00: mouth [place] ing tablet 00 every 8 Medica l (eight) Branch hours as needed for Nausea and Vomiting (N/V). ketorolac 2021-05 Yes [id number] 10mg Take 1 U nivers 10 mg 1-03 tablet by ity of tablet 00:00: mouth [place] 00 every 6 Medical (six) Branch hours as needed for Pain (scale 7-10). proMETHazin 2021-05 Yes [id number] 25mg Take 1 Univers e 25 mg 1-03 tablet by ity of tablet 00:00: mouth [place] 00 every 6 Medical (six) Branch hours as needed for N/V unresponsi ve to Ondansetro n. carvediloL 2021-05 Yes [id number] 25mg Take 1 U nivers 25 mg 1-03 tablet by ity of tablet 00:00: mouth in [place] 00 the Medical morning Branch and 1 tablet in the evening. Take with meals. ondansetron 2021-05 Yes [id number] 4mg Take 1 [facility] 4 mg 1-03 tablet by ity of disintegrat 00:00: mouth [place] ing tablet 00 every 8 Medica l (eight) Branch hours as needed for Nausea and Vomiting (N/V). ketorolac 2021-05 Yes [id number] 10mg Take 1 U nivers 10 mg 1-03 tablet by ity of tablet 00:00: mouth [place] 00 every 6 Medical (six) Branch hours as needed for Pain (scale 7-10). proMETHazin 2021-05 Yes [id number] 25mg Take 1 Univers e 25 mg 1-03 tablet by ity of tablet 00:00: mouth [place] 00 every 6 Medical (six) Branch hours as needed for N/V unresponsi ve to Ondansetro n. carvediloL 2021-05 Yes [id number] 25mg Take 1 U nivers 25 mg 1-03 tablet by ity of tablet 00:00: mouth in [place] 00 the Medical morning Branch and 1 tablet in the evening. Take with meals. ondansetron 2021-05 Yes [id number] 4mg Take 1 [facility] 4 mg 1-03 tablet by ity of disintegrat 00:00: mouth [place] ing tablet 00 every 8 Medica l (eight) Branch hours as needed for Nausea and Vomiting (N/V). ketorolac 2021-05 Yes [id number] 10mg Take 1 U nivers 10 mg 1-03 tablet by ity of tablet 00:00: mouth [place] 00 every 6 Medical (six) Branch hours as needed for Pain (scale 7-10). proMETHazin 2021-05 Yes [id number] 25mg Take 1 Univers e 25 mg 1-03 tablet by ity of tablet 00:00: mouth [place] 00 every 6 Medical (six) Branch hours as needed for N/V unresponsi ve to Ondansetro n. carvediloL 2021-05 Yes [id number] 25mg Take 1 U nivers 25 mg 1-03 tablet by ity of tablet 00:00: mouth in [place] 00 the Medical morning Branch and 1 tablet in the evening. Take with meals. ondansetron 2021-05 Yes [id number] 4mg Take 1 [facility] 4 mg 1-03 tablet by [facility] of disintegrat 00:00: mouth [place] ing tablet 00 every 8 Medica l (eight) Branch hours as needed for Nausea and Vomiting (N/V). ketorolac 2021-05 Yes [id number] 10mg Take 1 [facility] 10 mg 1-03 tablet by ity of tablet 00:00: mouth [place] 00 every 6 Medical (six) Branch hours as needed for Pain (scale 7-10). proMETHazin 2021-05 Yes [id number] 25mg Take 1 [facility] e 25 mg 1-03 tablet by ity of tablet 00:00: mouth [place] 00 every 6 Medical (six) Branch hours as needed for N/V unresponsi ve to Ondansetro n. carvediloL 2021-05 Yes [id number] 25mg Take 1 [facility] 25 mg 1-03 tablet by ity of tablet 00:00: mouth in [place] 00 the Medical morning Branch and 1 tablet in the evening. Take with meals. ondansetron 2021-05 Yes [id number] 4mg Take 1 [facility] 4 mg 1-03 tablet by ity of disintegrat 00:00: mouth [place] ing tablet 00 every 8 Medica l (eight) Branch hours as needed for Nausea and Vomiting (N/V). ketorolac 2021-05 Yes [id number] 10mg Take 1 [facility] 10 mg 1-03 tablet by ity of tablet 00:00: mouth [place] 00 every 6 Medical (six) Branch hours as needed for Pain (scale 7-10). proMETHazin 2021-05 Yes [id number] 25mg Take 1 [facility] e 25 mg 1-03 tablet by ity of tablet 00:00: mouth [place] 00 every 6 Medical (six) Branch hours as needed for N/V unresponsi ve to Ondansetro n. carvediloL 2021-05 Yes [id number] 25mg Take 1 [facility] 25 mg 1-03 tablet by ity of tablet 00:00: mouth in [place] 00 the Medical morning Branch and 1 tablet in the evening. Take with meals. ondansetron 2021-05 Yes [id number] 4mg Take 1 [facility] 4 mg 1-03 tablet by ity of disintegrat 00:00: mouth [place] ing tablet 00 every 8 Medica l (eight) Branch hours as needed for Nausea and Vomiting (N/V). ketorolac 2021-05 Yes [id number] 10mg Take 1 [facility] 10 mg 1-03 tablet by it[facility] of tablet 00:00: mouth [place] 00 every 6 Medical (six) Branch hours as needed for Pain (scale 7-10). proMETHazin 2021-05 Yes [id number] 25mg Take 1 [facility] 25 mg 1-03 tablet by it[facility] of tablet 00:00: mouth [place] 00 every 6 Medical (six) Branch hours as needed for N/V unresponsi ve to Ondansetro n. carvediloL 2021-05 Yes [id number] 25mg Take 1 [facility] 25 mg 1-03 tablet by it[facility] of tablet 00:00: mouth in [place] 00 the Medical morning Branch and 1 tablet in the evening. Take with meals. ondansetron 2021-05 Yes [id number] 4mg Take 1 [facility] 4 mg 1-03 tablet by [facility] of disintegrat 00:00: mouth [place] ing tablet 00 every 8 Medica l (eight) Branch hours as needed for Nausea and Vomiting (N/V). ketorolac 2021-05 Yes [id number] 10mg Take 1 [facility] 10 mg 1-03 tablet by ity of tablet 00:00: mouth [place] 00 every 6 Medical (six) Branch hours as needed for Pain (scale 7-10). proMETHazin 2021-05 Yes [id number] 25mg Take 1 [facility] e 25 mg 1-03 tablet by it[facility] of tablet 00:00: mouth [place] 00 every 6 Medical (six) Branch hours as needed for N/V unresponsi ve to Ondansetro n. carvediloL 2021-05 Yes [id number] 25mg Take 1 [facility] 25 mg 1-03 tablet by ity of tablet 00:00: mouth in [place] 00 the Medical morning Branch and 1 tablet in the evening. Take with meals. ondansetron 2021-05 Yes [id number] 4mg Take 1 [facility] 4 mg 1-03 tablet by it[facility] of disintegrat 00:00: mouth [place] ing tablet 00 every 8 Medica l (eight) Branch hours as needed for Nausea and Vomiting (N/V). ketorolac 2021-05 Yes [id number] 10mg Take 1 [facility] 10 mg 1-03 tablet by ity of tablet 00:00: mouth [place] 00 every 6 Medical (six) Branch hours as needed for Pain (scale 7-10). proMETHazin 2021-05 Yes [id number] 25mg Take 1 [facility] e 25 mg 1-03 tablet by ity of tablet 00:00: mouth [place] 00 every 6 Medical (six) Branch hours as needed for N/V unresponsi ve to Ondansetro n. carvediloL 2021-05 Yes [id number] 25mg Take 1 [facility] 25 mg 1-03 tablet by ity of tablet 00:00: mouth in [place] 00 the Medical morning Branch and 1 tablet in the evening. Take with meals. ondansetron 2021-05 Yes [id number] 4mg Take 1 [facility] 4 mg 1-03 tablet by ity of disintegrat 00:00: mouth [place] ing tablet 00 every 8 Medica l (eight) Branch hours as needed for Nausea and Vomiting (N/V). ketorolac 2021-05 Yes [id number] 10mg Take 1 [facility] 10 mg 1-03 tablet by ity of tablet 00:00: mouth [place] 00 every 6 Medical (six) Branch hours as needed for Pain (scale 7-10). proMETHazin 2021-05 Yes [id number] 25mg Take 1 [facility] 25 mg 1-03 tablet by ity of tablet 00:00: mouth [place] 00 every 6 Medical (six) Branch hours as needed for N/V unresponsi ve to Ondansetro n. carvediloL 2021-05 Yes [id number] 25mg Take 1 [facility] 25 mg 1-03 tablet by ity of tablet 00:00: mouth in [place] 00 the [facility] morning Branch and 1 tablet in the evening. Take with meals. carvediloL 2021-05 Yes [id number] 25mg Take 1 [facility] n[facility] 25 mg 1-03 tablet by ity of tablet 00:00: mouth in [place] 00 the [facility] morning Branch and 1 tablet in the evening. Take with meals. carvediloL 2021-05 Yes [id number] 25mg Take 1 [facility] n[facility] 25 mg 1-03 tablet by ity of tablet 00:00: mouth in [place] 00 the [facility] morning Branch and 1 tablet in the evening. Take with meals. carvediloL 2021-05 Yes [id number] 25mg Take 1 [facility] n[facility] 25 mg 1-03 tablet by ity of tablet 00:00: mouth in [place] 00 the [facility] morning Branch and 1 tablet in the evening. Take with meals. carvediloL 2021-05 Yes [id number] 25mg Take 1 [facility] 25 mg 1-03 tablet by ity of tablet 00:00: mouth in [place] 00 the Medical morning Branch and 1 tablet in the evening. Take with meals. carvediloL 2021-05 Yes [id number] 25mg Take 1 [facility] 25 mg 1-03 tablet by ity of tablet 00:00: mouth in [place] 00 the Medical morning Branch and 1 tablet in the evening. Take with meals. carvediloL 2021-05 Yes [id number] 25mg Take 1 [facility] 25 mg 1-03 tablet by ity of tablet 00:00: mouth in [place] [address] the Medical morning Branch and 1 tablet in the evening. Take with meals. carvediloL 2021-05 Yes [id number] 25mg Take 1 [facility] 25 mg 1-03 tablet by ity of tablet 00:00: mouth in [place] [address] the Medical morning Branch and 1 tablet in the evening. Take with meals. carvediloL 2021-05 Yes [id number] 25mg Take 1 [facility] 25 mg 1-03 tablet by ity of tablet 00:00: mouth in [place] [address] the Medical morning [place] and 1 tablet in the evening. Take with meals. carvediloL 2021-05 Yes [id number] 25mg Take 1 [facility] 25 mg 1-03 tablet by ity of tablet 00:00: mouth in [place] [address] the Medical morning [place] and 1 tablet in the evening. Take with meals. carvediloL 2021-05 Yes [id number] 25mg Take 1 [facility] 25 mg 1-03 tablet by ity of tablet 00:00: mouth in [place] [address] the Medical morning [place] and 1 tablet in the evening. Take with meals. carvediloL 2021-05 Yes [id number] 25mg Take 1 [facility] 25 mg 1-03 tablet by ity of tablet 00:00: mouth in [place] [address] the Medical morning Branch and 1 tablet in the evening. Take with meals. carvediloL 2021-05 Yes [id number] 25mg Take 1 [facility] 25 mg 1-03 tablet by ity of tablet 00:00: mouth in [place] [address] the Medical morning Branch and 1 tablet in the evening. Take with meals. carvediloL 2021-05 Yes [id number] 25mg Take 1 [facility] 25 mg 1-03 tablet by ity of tablet 00:00: mouth in [place] [address] the Medical morning [place] and 1 tablet in the evening. Take with meals. carvediloL 2021-05 Yes [id number] 25mg Take 1 [facility] 25 mg 1-03 tablet by ity of tablet 00:00: mouth in [place] 00 the Medical morning Branch and 1 tablet in the evening. Take with meals. carvediloL 2021-05 Yes [id number] 25mg Take 1 [facility] 25 mg 1-03 tablet by ity of tablet 00:00: mouth in [place] 00 the Medical morning Branch and 1 tablet in the evening. Take with meals. carvediloL 2021-05 Yes [id number] 25mg Take 1 [facility] 25 mg 1-03 tablet by ity of tablet 00:00: mouth in [place] 00 the Medical morning Branch and 1 tablet in the evening. Take with meals. carvediloL 2021-05 Yes [id number] 25mg Take 1 [facility] 25 mg 1-03 tablet by ity of tablet 00:00: mouth in [place] [address] the Medical morning Branch and 1 tablet in the evening. Take with meals. carvediloL 2021-05 Yes [id number] 25mg Take 1 [facility] 25 mg 1-03 tablet by ity of tablet 00:00: mouth in [place] [address] the Medical morning [place] and 1 tablet in the evening. Take with meals. carvediloL 2021-05 Yes [id number] 25mg Take 1 [facility] 25 mg 1-03 tablet by ity of tablet 00:00: mouth in [place] [address] the Medical morning Branch and 1 tablet in the evening. Take with meals. carvediloL 2021-05 Yes [id number] 25mg Take 1 [facility] 25 mg 1-03 tablet by ity of tablet 00:00: mouth in [place] [address] the Medical morning Branch and 1 tablet in the evening. Take with meals. carvediloL 2021-05 Yes [id number] 25mg Take 1 [facility] 25 mg 1-03 tablet by ity of tablet 00:00: mouth in [place] 00 the Medical morning Branch and 1 tablet in the evening. Take with meals. carvediloL 2021-05- No [id number] 25mg Take 1 [facility] 25 mg 1-03 04-26 tablet by ity of tablet 00:00: 00:00 mouth in [place] 00 :00 the Medical morning Branch and 1 tablet in the evening. Take with meals. carvediloL 2021-05- No [id number] 25mg Take 1 [facility] 25 mg 1-03 04-26 tablet by ity of tablet 00:00: 00:00 mouth in [place] 00 :00 the Medical morning Branch and 1 tablet in the evening. Take with meals. ondansetron 2021-05- No [id number] 4mg Take 1 [facility] 4 mg 05-15 tablet by ity of disintegrat 00:00: 00:00 [place] tablet 00 :00 every 8 Medica l (eight) Branch hours as needed for Nausea and Vomiting (N/V). ketorolac 2021-05- No [id number] 10mg Take 1 [facility] 10 mg 05-15 tablet by ity of tablet 00:00: 00:00 mouth [place] 00 :00 every 6 Medical (six) Branch hours as needed for Pain (scale 7-10). proMETHazin 2021-05- No [id number] 25mg Take 1 [facility] e 25 mg 05-15 tablet by ity of tablet 00:00: 00:00 mouth [place] 00 :00 every 6 Medical (six) Branch hours as needed for N/V unresponsi ve to Ondansetro n. cephALEXin 2021-05- No [id number] 500mg Take 1 [facility] 500 mg 05-15 capsule by ity of capsule 00:00: 05:59 mouth 4 [place] 00 :00 (four) Medical times Branch daily for 3 days. cephALEXin 2021-05- No [id number] 500mg Take 1 [facility] 500 mg 05-15 capsule by ity of capsule 00:00: 05:59 mouth 4 [place] 00 :00 (four) Medical times Branch daily for 3 days. cephALEXin 2021-05- No [id number] 500mg Take 1 [facility] 500 mg 05-15 capsule by ity of capsule 00:00: 05:59 mouth 4 [place] 00 :00 (four) Medical times Branch daily for 3 days. predniSONE 2021-05- No [id number] 20mg Take 1 [facility] 20 mg 0-31 03-15 tablet by ity of tablet 00:00: 04:59 mouth in [place] 00 :00 the Medical morning Branch for 2 days. methocarbam 2021-05- No 500mg 500 mg, U nivers oL 0-30 10-30 Oral, ity of (ROBAXIN) 16:45: 17:08 ONCE, 1 [place] :[place] dose, On Medic al mg Sun [place] 03/11/22 at 1200, [place] dexamethaso 2021-05- No 10mg 10 mg, Uni vers ne sod phos 0-30 10-30 Slow IV ity of PF 16:00: 16:00 Push, [place] injection 00 :00 ONCE, 1 Medical 10 mg dose, On [facility] 03/11/22 at 1100, 1 mL diphenhydrA 2021-05- No 25mg 25 mg, Uni vers MINE 0-30 10-30 Slow IV ity of (BENADRYL) 15:46: 16:00 [place], [place] injection 00 :00 ONCE, 1 Medical 25 mg dose, On [facility] 03/11/22 at 1100, STAT NaCl 0.9% 2021-05 No 1000mL at 999 Uni vers (NS) IV 0-30 10-30 mL/hr, ity of infusion 15:45: 16:04 Intravenou [place] 1,000 mL 00 :00 s, ONCE, 1 Medic al dose, On [facility] 03/11/22 at 1045, Routine butalbital- 2021-05- No [...] :00 ONCE, 1 Medical dose, On [facility] 03/11/22 at 0945, [place] proMETHazin 2021-05- No 12.5mg 12.5 mg, Univers e 0-30 10-30 IV ity of (PHENERGAN) 14:45: 15:04 Piggyback, [place] 12.5 mg in 00 :00 ONCE, 1 Medica l NaCl 0.9% dose, On [place] (NS) 50 mL Sun IV 03/11/22 piggyback at 0945, [place] proMETHazin 2021-05 Yes [id number] 25mg Take 1 [facility] e 25 mg 0-30 tablet by ity of tablet 00:00: mouth [place] 00 every 6 Medical (six) Branch hours as needed for Nausea and Vomiting (N/V). methocarbam 2021-05 Yes [id number] 500mg Take 1 [facility] oL 500 mg 0-30 tablet by ity o f tablet 00:00: mouth 3 [place] 00 (three) Medical times Branch daily as needed for Pain (scale 7-10). proMETHazin 2021-05 Yes [id number] 25mg Take 1 [facility] e 25 mg 0-30 tablet by ity of tablet 00:00: mouth [place] 00 every 6 Medical (six) Branch hours as needed for Nausea and Vomiting (N/V). methocarbam 2021-05 Yes [id number] 500mg Take 1 [facility] oL 500 mg 0-30 tablet by ity o f tablet 00:00: mouth 3 [place] 00 (three) Medical times Branch daily as needed for Pain (scale 7-10). proMETHazin 2021-05 Yes [id number] 25mg Take 1 [facility] e 25 mg 0-30 tablet by ity of tablet 00:00: mouth [place] 00 every 6 Medical (six) Branch hours as needed for Nausea and Vomiting (N/V). methocarbam 2021-05 Yes [id number] 500mg Take 1 [facility] oL 500 mg 0-30 tablet by ity o f tablet 00:00: mouth 3 [place] 00 (three) Medical times Branch daily as needed for Pain (scale 7-10). proMETHazin 2021-05 Yes [id number] 25mg Take 1 [facility] e 25 mg 0-30 tablet by ity of tablet 00:00: mouth [place] 00 every 6 Medical (six) Branch hours as needed for Nausea and Vomiting (N/V). methocarbam 2021-05 Yes [id number] 500mg Take 1 [facility] oL 500 mg 0-30 tablet by ity o f tablet 00:00: mouth 3 [place] 00 (three) Medical times Branch daily as needed for Pain (scale 7-10). proMETHazin 2021-05 Yes [id number] 25mg Take 1 [facility] e 25 mg 0-30 tablet by ity of tablet 00:00: mouth [place] 00 every 6 Medical (six) Branch hours as needed for Nausea and Vomiting (N/V). methocarbam 2021-05 Yes [id number] 500mg Take 1 [facility] oL 500 mg 0-30 tablet by ity o f tablet 00:00: mouth 3 [place] 00 (three) Medical times Branch daily as needed for Pain (scale 7-10). proMETHazin 2021-05 Yes [id number] 25mg Take 1 [facility] e 25 mg 0-30 tablet by ity of tablet 00:00: mouth [place] 00 every 6 Medical (six) Branch hours as needed for Nausea and Vomiting (N/V). methocarbam 2021-05 Yes [id number] 500mg Take 1 [facility] oL 500 mg 0-30 tablet by ity o f tablet 00:00: mouth 3 00 (three) Medical times Branch daily as needed for Pain (scale 7-10). proMETHazin 2021-05 Yes [id number] 25mg Take 1 [facility] e 25 mg 0-30 tablet by ity of tablet 00:00: mouth [place] 00 every 6 Medical (six) Branch hours as needed for Nausea and Vomiting (N/V). methocarbam 2021-05 Yes [id number] 500mg Take 1 [facility] oL 500 mg 0-30 tablet by ity o f tablet 00:00: mouth 3 00 (three) Medical times Branch daily as needed for Pain (scale 7-10). proMETHazin 2021-05 Yes [id number] 25mg Take 1 [facility] e 25 mg 0-30 tablet by ity of tablet 00:00: mouth [place] 00 every 6 Medical (six) Branch hours as needed for Nausea and Vomiting (N/V). methocarbam 2021-05 Yes [id number] 500mg Take 1 [facility] oL 500 mg 0-30 tablet by ity o f tablet 00:00: mouth 3 00 (three) Medical times Branch daily as needed for Pain (scale 7-10). proMETHazin 2021-05 Yes [id number] 25mg Take 1 [facility] e 25 mg 0-30 tablet by ity of tablet 00:00: mouth [place] 00 every 6 Medical (six) Branch hours as needed for Nausea and Vomiting (N/V). methocarbam 2021-05 Yes [id number] 500mg Take 1 [facility] oL 500 mg 0-30 tablet by ity o f tablet 00:00: mouth 3 [place] 00 (three) Medical times Branch daily as needed for Pain (scale 7-10). proMETHazin 2021-05 Yes [id number] 25mg Take 1 [facility] e 25 mg 0-30 tablet by ity of tablet 00:00: mouth [place] 00 every 6 Medical (six) Branch hours as needed for Nausea and Vomiting (N/V). methocarbam 2021-05 Yes [id number] 500mg Take 1 [facility] oL 500 mg 0-30 tablet by ity o f tablet 00:00: mouth 3 [place] 00 (three) Medical times Branch daily as needed for Pain (scale 7-10). proMETHazin 2021-05 Yes [id number] 25mg Take 1 [facility] e 25 mg 0-30 tablet by ity of tablet 00:00: mouth [place] 00 every 6 Medical (six) Branch hours as needed for Nausea and Vomiting (N/V). methocarbam 2021-05 Yes [id number] 500mg Take 1 [facility] oL 500 mg 0-30 tablet by ity o f tablet 00:00: mouth 3 00 (three) Medical times Branch daily as needed for Pain (scale 7-10). proMETHazin 2021-05 Yes [id number] 25mg Take 1 [facility] e 25 mg 0-30 tablet by ity of tablet 00:00: mouth [place] 00 every 6 Medical (six) Branch hours as needed for Nausea and Vomiting (N/V). proMETHazin 2021-05 Yes [id number] 25mg Take 1 [facility] e 25 mg 0-30 tablet by ity of tablet 00:00: mouth [place] 00 every 6 Medical (six) Branch hours as needed for Nausea and Vomiting (N/V). proMETHazin 2021-05 Yes [id number] 25mg Take 1 [facility] e 25 mg 0-30 tablet by ity of tablet 00:00: mouth [place] 00 every 6 Medical (six) Branch hours as needed for Nausea and Vomiting (N/V). proMETHazin 2021-05 Yes [id number] 25mg Take 1 [facility] e 25 mg 0-30 tablet by ity of tablet 00:00: mouth [place] 00 every 6 Medical (six) Branch hours as needed for Nausea and Vomiting (N/V). proMETHazin 2021-05 Yes [id number] 25mg Take 1 [facility] e 25 mg 0-30 tablet by ity of tablet 00:00: mouth [place] 00 every 6 Medical (six) Branch hours as needed for Nausea and Vomiting (N/V). proMETHazin 2021-05 Yes [id number] 25mg Take 1 [facility] e 25 mg 0-30 tablet by ity of tablet 00:00: mouth [place] 00 every 6 Medical (six) Branch hours as needed for Nausea and Vomiting (N/V). proMETHazin 2021-05 Yes [id number] 25mg Take 1 [facility] e 25 mg 0-30 tablet by ity of tablet 00:00: mouth [place] 00 every 6 Medical (six) Branch hours as needed for Nausea and Vomiting (N/V). proMETHazin 2021-05 Yes [id number] 25mg Take 1 [facility] e 25 mg 0-30 tablet by ity of tablet 00:00: mouth [place] 00 every 6 Medical (six) Branch hours as needed for Nausea and Vomiting (N/V). proMETHazin 2021-05 Yes [id number] 25mg Take 1 [facility] e 25 mg 0-30 tablet by ity of tablet 00:00: mouth [place] 00 every 6 Medical (six) Branch hours as needed for Nausea and Vomiting (N/V). proMETHazin 2021-05 Yes [id number] 25mg Take 1 [facility] e 25 mg 0-30 tablet by ity of tablet 00:00: mouth [place] 00 every 6 Medical (six) Branch hours as needed for Nausea and Vomiting (N/V). proMETHazin 2021-05 Yes [id number] 25mg Take 1 [facility] e 25 mg 0-30 tablet by ity of tablet 00:00: mouth [place] 00 every 6 Medical (six) Branch hours as needed for Nausea and Vomiting (N/V). proMETHazin 2021-05 Yes [id number] 25mg Take 1 [facility] e 25 mg 0-30 tablet by ity of tablet 00:00: mouth [place] 00 every 6 Medical (six) Branch hours as needed for Nausea and Vomiting (N/V). proMETHazin 2021-05 Yes [id number] 25mg Take 1 [facility] e 25 mg 0-30 tablet by ity of tablet 00:00: mouth [place] 00 every 6 Medical (six) Branch hours as needed for Nausea and Vomiting (N/V). proMETHazin 2021-05 Yes [id number] 25mg Take 1 [facility] e 25 mg 0-30 tablet by ity of tablet 00:00: mouth [place] 00 every 6 Medical (six) Branch hours as needed for Nausea and Vomiting (N/V). proMETHazin 2021-05 Yes [id number] 25mg Take 1 [facility] e 25 mg 0-30 tablet by ity of tablet 00:00: mouth [place] 00 every 6 Medical (six) Branch hours as needed for Nausea and Vomiting (N/V). proMETHazin 2021-05 Yes [id number] 25mg Take 1 [facility] e 25 mg 0-30 tablet by ity of tablet 00:00: mouth [place] 00 every 6 Medical (six) Branch hours as needed for Nausea and Vomiting (N/V). proMETHazin 2021-05 Yes [id number] 25mg Take 1 [facility] e 25 mg 0-30 tablet by ity of tablet 00:00: mouth [place] 00 every 6 Medical (six) Branch hours as needed for Nausea and Vomiting (N/V). proMETHazin 2021-05- No [id number] 25mg Take 1 [facility] e 25 mg 0-30 03-21 tablet by ity of tablet 00:00: 00:00 mouth [place] 00 :00 every 6 Medical (six) Branch hours as needed for Nausea and Vomiting (N/V). methocarbam 2021-05- No [id number] 500mg Take 1 [facility] oL 500 mg 0-30 11-26 tablet by ity of tablet 00:00: 00:00 mouth 3 [place] 00 :00 (three) Medical times Branch daily as needed for Pain (scale 7-10). topiramate 2021-05 Yes [id number] 100mg Take 4 [facility] 25 mg 0-21 tablets by ity of tablet 00:00: mouth in [place] 00 the Medical morning. Branch topiramate 2021-05 Yes [id number] 100mg Take 4 [facility] 25 mg 0-21 tablets by ity of tablet 00:00: mouth in [place] 00 the Medical morning. Branch topiramate 2021-05 Yes [id number] 100mg Take 4 [facility] 25 mg 0-21 tablets by ity of tablet 00:00: mouth in [place] 00 the Medical morning. Branch topiramate 2021-05 Yes [id number] 100mg Take 4 [facility] 25 mg 0-21 tablets by ity of tablet 00:00: mouth in [place] 00 the Medical morning. Branch topiramate 2021-05 Yes [id number] 100mg Take 4 [facility] 25 mg 0-21 tablets by ity of tablet 00:00: mouth in [place] the Medical morning. Branch topiramate 2021-1 Yes [id number] 100mg Take 4 [facility] 25 mg 0-21 tablets by ity of tablet 00:00: mouth in [place] the Medical morning. Branch topiramate 2021-1 Yes [id number] 100mg Take 4 [facility] 25 mg 0-21 tablets by ity of tablet 00:00: mouth in [place] the Medical morning. Branch topiramate 2021-1 Yes [id number] 100mg Take 4 [facility] 25 mg 0-21 tablets by ity of tablet 00:00: mouth in [place] the Medical morning. Branch topiramate 2021-1 Yes [id number] 100mg Take 4 [facility] 25 mg 0-21 tablets by ity of tablet 00:00: mouth in [place] the Medical morning. Branch topiramate 2021-1 Yes [id number] 100mg Take 4 [facility] 25 mg 0-21 tablets by ity of tablet 00:00: mouth in [place] the Medical morning. Branch topiramate 2021- Yes [id number] 100mg Take 4 [facility] 25 mg 0-21 tablets by ity of tablet 00:00: mouth in [place] the Medical morning. Branch topiramate 2021- Yes [id number] 100mg Take 4 [facility] 25 mg 0-21 tablets by ity of tablet 00:00: mouth in [place] the Medical morning. Branch topiramate 2021-1 Yes [id number] 100mg Take 4 [facility] 25 mg 0-21 tablets by ity of tablet 00:00: mouth in [place] the Medical morning. Branch topiramate 2-1 Yes [id number] 100mg Take 4 [facility] 25 mg 0-21 tablets by ity of tablet 00:00: mouth in [place] the Medical morning. Branch topiramate 2-1 Yes [id number] 100mg Take 4 [facility] 25 mg 0-21 tablets by ity of tablet 00:00: mouth in [place] the Medical morning. Branch topiramate 2-1 Yes [id number] 100mg Take 4 [facility] 25 mg 0-21 tablets by ity of tablet 00:00: mouth in [place] the Medical morning. Branch topiramate 2021-1 Yes [id number] 100mg Take 4 [facility] 25 mg 0-21 tablets by ity of tablet 00:00: mouth in [place] 00 the Medical morning. Branch topiramate 2-1 Yes [id number] 100mg Take 4 [facility] 25 mg 0-21 tablets by ity of tablet 00:00: mouth in [place] the Medical morning. Branch topiramate 2-1 Yes [id number] 100mg Take 4 [facility] 25 mg 0-21 tablets by ity of tablet 00:00: mouth in [place] the Medical morning. Branch topiramate 2-1 Yes [id number] 100mg Take 4 [facility] 25 mg 0-21 tablets by ity of tablet 00:00: mouth in [place] the Medical morning. Branch topiramate 2-1 Yes [id number] 100mg Take 4 [facility] 25 mg 0-21 tablets by ity of tablet 00:00: mouth in [place] the Medical morning. Branch topiramate 2-1 Yes [id number] 100mg Take 4 [facility] 25 mg 0-21 tablets by ity of tablet 00:00: mouth in [place] the Medical morning. Branch topiramate 2021-1 Yes [id number] 100mg Take 4 [facility] 25 mg 0-21 tablets by ity of tablet 00:00: mouth in [place] the Medical morning. Branch topiramate 2-1 Yes [id number] 100mg Take 4 [facility] 25 mg 0-21 tablets by ity of tablet 00:00: mouth in [place] the Medical morning. Branch topiramate 2-1 Yes [id number] 100mg Take 4 [facility] 25 mg 0-21 tablets by ity of tablet 00:00: mouth in [place] the Medical morning. Branch topiramate 2-1 Yes [id number] 100mg Take 4 [facility] 25 mg 0-21 tablets by ity of tablet 00:00: mouth in [place] the Medical morning. Branch topiramate 2-1 Yes [id number] 100mg Take 4 [facility] 25 mg 0-21 tablets by ity of tablet 00:00: mouth in [place] the Medical morning. Branch topiramate 2022-1 Yes [id number] 100mg Take 4 [facility] 25 mg 0-21 tablets by ity of tablet 00:00: mouth in [place] 00 the Medical morning. Branch topiramate 2022-1 Yes [id number] 100mg Take 4 [facility] 25 mg 0-21 tablets by ity of tablet 00:00: mouth in [place] 00 the Medical morning. Branch topiramate 2022-1 Yes [id number] 100mg Take 4 [facility] 25 mg 0-21 tablets by ity of tablet 00:00: mouth in [place] the Medical morning. Branch topiramate 2021-1 Yes [id number] 100mg Take 4 [facility] 25 mg 0-21 tablets by ity of tablet 00:00: mouth in [place] the Medical morning. Branch topiramate 2021-1 Yes [id number] 100mg Take 4 [facility] 25 mg 0-21 tablets by ity of tablet 00:00: mouth in [place] the Medical morning. Branch topiramate 2021-1 Yes [id number] 100mg Take 4 [facility] 25 mg 0-21 tablets by ity of tablet 00:00: mouth in [place] the Medical morning. Branch topiramate 2021-1 Yes [id number] 100mg Take 4 [facility] 25 mg 0-21 tablets by ity of tablet 00:00: mouth in [place] the Medical morning. Branch topiramate 2021-1 Yes [id number] 100mg Take 4 [facility] 25 mg 0-21 tablets by ity of tablet 00:00: mouth in [place] the Medical morning. Branch topiramate 2021- Yes [id number] 100mg Take 4 [facility] 25 mg 0-21 tablets by ity of tablet 00:00: mouth in [place] the Medical morning. Branch topiramate 2021- Yes [id number] 100mg Take 4 [facility] 25 mg 0-21 tablets by ity of tablet 00:00: mouth in [place] the Medical morning. Branch topiramate 2021-1 Yes [id number] 100mg Take 4 [facility] 25 mg 0-21 tablets by ity of tablet 00:00: mouth in [place] the Medical morning. Branch topiramate 2-1 Yes [id number] 100mg Take 4 [facility] 25 mg 0-21 tablets by ity of tablet 00:00: mouth in [place] the Medical morning. Branch topiramate 2-1 Yes [id number] 100mg Take 4 [facility] 25 mg 0-21 tablets by ity of tablet 00:00: mouth in [place] the Medical morning. Branch topiramate 2-1 Yes [id number] 100mg Take 4 [facility] 25 mg 0-21 tablets by ity of tablet 00:00: mouth in [place] the Medical morning. Branch topiramate 2021-1 Yes [id number] 100mg Take 4 [facility] 25 mg 0-21 tablets by ity of tablet 00:00: mouth in [place] the Medical morning. Branch diphenhydrA 2021-05- No 25mg Take 25 mg [facility] MINE 25 mg 0-18 10-18 by mouth ity of capsule 09:39: 00:00 every 6 [place] 59 :00 (six) Medical hours as Branch needed for Allergies. diphenhydrA 2021-05- No 25mg Take 25 mg [facility] MINE 25 mg 0-18 10-18 by mouth ity of capsule 09:39: 00:00 every 6 [place] 59 :00 (six) Medical hours as Branch [...] ity of capsule 09:39: 00:00 every 6 [place] 59 :00 (six) Medical hours as Branch [...] 28 :00 Medical Branch albuterol 2021-05 Yes [id number] 2{puff} Inhale 2 [facility] 90 0-18 Puffs ity of mcg/actuati 00:00: every 6 [place] as on inhaler 00 (six) Medical hours as Branch needed for Wheezing or Shortness of Breath. albuterol 2021-05 Yes [id number] 2{puff} Inhale 2 [facility] 90 0-18 Puffs ity of mcg/actuati 00:00: every 6 [place] as on inhaler 00 (six) Medical hours as Branch needed for Wheezing or Shortness of Breath. albuterol 2021-05 Yes [id number] 2{puff} Inhale 2 [facility] 90 0-18 Puffs ity of mcg/actuati 00:00: every 6 [place] on inhaler 00 (six) Medical hours as Branch needed for Wheezing or Shortness of Breath. albuterol 2021-05 Yes [id number] 2{puff} Inhale 2 [facility] 90 0-18 Puffs ity of mcg/actuati 00:00: every 6 [place] on inhaler 00 (six) Medical hours as Branch needed for Wheezing or Shortness of Breath. albuterol 2021-05 Yes [id number] 2{puff} Inhale 2 [facility] 90 0-18 Puffs ity of mcg/actuati 00:00: every 6 [place] on inhaler 00 (six) Medical hours as Branch needed for Wheezing or Shortness of Breath. albuterol 2021-05 Yes [id number] 2{puff} Inhale 2 [facility] 90 0-18 Puffs ity of mcg/actuati 00:00: every 6 [place] on inhaler 00 (six) Medical hours as Branch needed for Wheezing or Shortness of Breath. albuterol 2021-05 Yes [id number] 2{puff} Inhale 2 [facility] 90 0-18 Puffs ity of mcg/actuati 00:00: every 6 [place] on inhaler 00 (six) Medical hours as Branch needed for Wheezing or Shortness of Breath. albuterol 2021-05 Yes [id number] 2{puff} Inhale 2 [facility] 90 0-18 Puffs ity of mcg/actuati 00:00: every 6 [place] on inhaler 00 (six) Medical hours as Branch needed for Wheezing or Shortness of Breath. albuterol 2021-05 Yes [id number] 2{puff} Inhale 2 [facility] 90 0-18 Puffs ity of mcg/actuati 00:00: every 6 [place] on inhaler 00 (six) Medical hours as Branch needed for Wheezing or Shortness of Breath. albuterol 2021-05 Yes [id number] 2{puff} Inhale 2 [facility] 90 0-18 Puffs ity of mcg/actuati 00:00: every 6 [place] on inhaler 00 (six) Medical hours as Branch needed for Wheezing or Shortness of Breath. albuterol 2021-05 Yes [id number] 2{puff} Inhale 2 [facility] 90 0-18 Puffs ity of mcg/actuati 00:00: every 6 [place] on inhaler 00 (six) Medical hours as Branch needed for Wheezing or Shortness of Breath. albuterol 2021-05 Yes [id number] 2{puff} Inhale 2 [facility] 90 0-18 Puffs ity of mcg/actuati 00:00: every 6 [place] on inhaler 00 (six) Medical hours as Branch needed for Wheezing or Shortness of Breath. albuterol 2021-05 Yes [id number] 2{puff} Inhale 2 [facility] 90 0-18 Puffs ity of mcg/actuati 00:00: every 6 [place] on inhaler 00 (six) Medical hours as Branch needed for Wheezing or Shortness of Breath. albuterol 2021-05 Yes [id number] 2{puff} Inhale 2 [facility] 90 0-18 Puffs ity of mcg/actuati 00:00: every 6 [place] on inhaler 00 (six) Medical hours as Branch needed for Wheezing or Shortness of Breath. albuterol 2021-05 Yes [id number] 2{puff} Inhale 2 [facility] 90 0-18 Puffs ity of mcg/actuati 00:00: every 6 [place] on inhaler 00 (six) Medical hours as Branch needed for Wheezing or Shortness of Breath. albuterol 2021-05 Yes [id number] 2{puff} Inhale 2 [facility] 90 0-18 Puffs ity of mcg/actuati 00:00: every 6 [place] on inhaler 00 (six) Medical hours as Branch needed for Wheezing or Shortness of Breath. albuterol 2021-05 Yes [id number] 2{puff} Inhale 2 [facility] 90 0-18 Puffs ity of mcg/actuati 00:00: every 6 [place] on inhaler 00 (six) Medical hours as Branch needed for Wheezing or Shortness of Breath. albuterol 2021-05 Yes [id number] 2{puff} Inhale 2 [facility] 90 0-18 Puffs ity of mcg/actuati 00:00: every 6 [place] on inhaler 00 (six) Medical hours as Branch needed for Wheezing or Shortness of Breath. albuterol 2021-05 Yes [id number] 2{puff} Inhale 2 [facility] 90 0-18 Puffs ity of mcg/actuati 00:00: every 6 [place] on inhaler 00 (six) Medical hours as Branch needed for Wheezing or Shortness of Breath. albuterol 2021-05 Yes [id number] 2{puff} Inhale 2 [facility] 90 0-18 Puffs ity of mcg/actuati 00:00: every 6 [place] as on inhaler 00 (six) Medical hours as Branch needed for Wheezing or Shortness of Breath. albuterol 2021-05 Yes [id number] 2{puff} Inhale 2 [facility] 90 0-18 Puffs ity of mcg/actuati 00:00: every 6 [place] on inhaler 00 (six) Medical hours as Branch needed for Wheezing or Shortness of Breath. albuterol 2021-05 Yes [id number] 2{puff} Inhale 2 [facility] 90 0-18 Puffs ity of mcg/actuati 00:00: every 6 [place] on inhaler 00 (six) Medical hours as Branch needed for Wheezing or Shortness of Breath. albuterol 2021-05 Yes [id number] 2{puff} Inhale 2 [facility] 90 0-18 Puffs ity of mcg/actuati 00:00: every 6 [place] on inhaler 00 (six) Medical hours as Branch needed for Wheezing or Shortness of Breath. albuterol 2021-05 Yes [id number] 2{puff} Inhale 2 [facility] 90 0-18 Puffs ity of mcg/actuati 00:00: every 6 [place] on inhaler 00 (six) Medical hours as Branch needed for Wheezing or Shortness of Breath. albuterol 2021-05 Yes [id number] 2{puff} Inhale 2 [facility] 90 0-18 Puffs ity of mcg/actuati 00:00: every 6 [place] on inhaler 00 (six) Medical hours as Branch needed for Wheezing or Shortness of Breath. albuterol 2021-05 Yes [id number] 2{puff} Inhale 2 [facility] 90 0-18 Puffs ity of mcg/actuati 00:00: every 6 [place] on inhaler 00 (six) Medical hours as Branch needed for Wheezing or Shortness of Breath. albuterol 2021-05 Yes [id number] 2{puff} Inhale 2 [facility] 90 0-18 Puffs ity of mcg/actuati 00:00: every 6 [place] on inhaler 00 (six) Medical hours as Branch needed for Wheezing or Shortness of Breath. albuterol 2021-05 Yes [id number] 2{puff} Inhale 2 [facility] 90 0-18 Puffs ity of mcg/actuati 00:00: every 6 [place] on inhaler 00 (six) Medical hours as Branch needed for Wheezing or Shortness of Breath. albuterol 2021-05 Yes [id number] 2{puff} Inhale 2 [facility] 90 0-18 Puffs ity of mcg/actuati 00:00: every 6 [place] on inhaler 00 (six) Medical hours as Branch needed for Wheezing or Shortness of Breath. albuterol 2021-05 Yes [id number] 2{puff} Inhale 2 [facility] 90 0-18 Puffs ity of mcg/actuati 00:00: every 6 [place] on inhaler 00 (six) Medical hours as Branch needed for Wheezing or Shortness of Breath. albuterol 2021-05 Yes [id number] 2{puff} Inhale 2 [facility] 90 0-18 Puffs ity of mcg/actuati 00:00: every 6 [place] on inhaler 00 (six) Medical hours as Branch needed for Wheezing or Shortness of Breath. albuterol 2021-05 Yes [id number] 2{puff} Inhale 2 [facility] 90 0-18 Puffs ity of mcg/actuati 00:00: every 6 [place] on inhaler 00 (six) Medical hours as Branch needed for Wheezing or Shortness of Breath. albuterol 2021-05 Yes [id number] 2{puff} Inhale 2 [facility] 90 0-18 Puffs ity of mcg/actuati 00:00: every 6 [place] on inhaler 00 (six) Medical hours as Branch needed for Wheezing or Shortness of Breath. albuterol 2021-05 Yes [id number] 2{puff} Inhale 2 [facility] 90 0-18 Puffs ity of mcg/actuati 00:00: every 6 [place] on inhaler 00 (six) Medical hours as Branch needed for Wheezing or Shortness of Breath. albuterol 2021-05 Yes [id number] 2{puff} Inhale 2 [facility] 90 0-18 Puffs ity of mcg/actuati 00:00: every 6 [place] on inhaler 00 (six) Medical hours as Branch needed for Wheezing or Shortness of Breath. albuterol 2021-05 Yes [id number] 2{puff} Inhale 2 [facility] 90 0-18 Puffs ity of mcg/actuati 00:00: every 6 [place] on inhaler 00 (six) Medical hours as Branch needed for Wheezing or Shortness of Breath. albuterol 2021-05 Yes [id number] 2{puff} Inhale 2 [facility] 90 0-18 Puffs ity of mcg/actuati 00:00: every 6 [place] on inhaler 00 (six) Medical hours as Branch needed for Wheezing or Shortness of Breath. albuterol 2021-05 Yes [id number] 2{puff} Inhale 2 [facility] 90 0-18 Puffs ity of mcg/actuati 00:00: every 6 [place] on inhaler 00 (six) Medical hours as Branch needed for Wheezing or Shortness of Breath. albuterol 2021-05 Yes [id number] 2{puff} Inhale 2 [facility] 90 0-18 Puffs ity of mcg/actuati 00:00: every 6 [place] on inhaler 00 (six) Medical hours as Branch needed for Wheezing or Shortness of Breath. albuterol 2021-05 Yes [id number] 2{puff} Inhale 2 [facility] 90 0-18 Puffs ity of mcg/actuati 00:00: every 6 [place] on inhaler 00 (six) Medical hours as Branch needed for Wheezing or Shortness of Breath. albuterol 2021-05 Yes [id number] 2{puff} Inhale 2 [facility] 90 0-18 Puffs ity of mcg/actuati 00:00: every 6 [place] on inhaler 00 (six) Medical hours as Branch needed for Wheezing or Shortness of Breath. albuterol 2021-05 Yes [id number] 2{puff} Inhale 2 [facility] 90 0-18 Puffs ity of mcg/actuati 00:00: every 6 [place] on inhaler 00 (six) Medical hours as Branch needed for Wheezing or Shortness of Breath. albuterol 2021-05 Yes [id number] 2{puff} Inhale 2 [facility] 90 0-18 Puffs ity of mcg/actuati 00:00: every 6 [place] as on inhaler 00 (six) Medical hours as Branch needed for Wheezing or Shortness of Breath. albuterol 2021-05 Yes [id number] 2{puff} Inhale 2 [facility] 90 0-18 Puffs ity of mcg/actuati 00:00: every 6 [place] on inhaler 00 (six) Medical hours as Branch needed for Wheezing or Shortness of Breath. albuterol 2021-05 Yes [id number] 2{puff} Inhale 2 [facility] 90 0-18 Puffs ity of mcg/actuati 00:00: every 6 [place] on inhaler 00 (six) Medical hours as Branch needed for Wheezing or Shortness of Breath. albuterol 2021-05 Yes [id number] 2{puff} Inhale 2 [facility] 90 0-18 Puffs ity of mcg/actuati 00:00: every 6 [place] on inhaler 00 (six) Medical hours as Branch needed for Wheezing or Shortness of Breath. albuterol 2021-05 Yes [id number] 2{puff} Inhale 2 [facility] 90 0-18 Puffs [...] a 24 hour period. benzonatate 2021-05- No [id number] 200mg Take 1 [facility] 200 mg 0-18 10-26 capsule by ity of capsule 00:00: 04:59 mouth 3 [place] 00 :00 (three) Medical times Branch daily as needed for Cough for up to 7 days. benzonatate 2021-05- No [id number] 200mg Take 1 [facility] 200 mg 0-18 10-26 capsule by ity of capsule 00:00: 04:59 mouth 3 [place] 00 :00 (three) Medical times Branch daily as needed for Cough for up to 7 days. benzonatate 2021-05- No [id number] 200mg Take 1 [facility] 200 mg 0-18 10-26 capsule by ity of capsule 00:00: 04:59 mouth 3 [place] 00 :00 (three) Medical times Branch daily as needed for Cough for up to 7 days. benzonatate 2021-05- No [id number] 200mg Take 1 [facility] 200 mg 0-18 10-26 capsule by ity of capsule 00:00: 04:59 mouth 3 [place] 00 :00 (three) Medical times Branch daily as needed for Cough for up to 7 days. benzonatate 2021-05- No [id number] 200mg Take 1 [facility] 200 mg 0-18 10-26 capsule by ity of capsule 00:00: 04:59 mouth 3 [place] 00 :00 (three) Medical times Branch daily as needed for Cough for up to 7 days. benzonatate 2021-05- No [id number] 200mg Take 1 [facility] 200 mg 0-18 10-26 capsule by ity of capsule 00:00: 04:59 mouth 3 [place] 00 :00 (three) Medical times Branch daily as needed for Cough for up to 7 days. SUMAtriptan 2021-05 No [id number] 50mg Take 1 [facility] 50 mg [id number] tablet by ity of tablet 00:00: 04:59 [place] 00 :[place] now for 1 Medical dose. [place] SUMAtriptan 2021-05 No [id number] 50mg Take 1 [facility] 50 mg 002-28 [id number] tablet by ity of tablet 00:00: 04:59 [place] 00 :00 now for 1 Medical dose. [place] butalbital- 2021-05- No 1{tbl} 1 tablet, Univers [...] Medical Infusion, Branch ONCE, 1 dose, On [facility] 02/21/22 at 0215, [place] proMETHazin 2021-05 No 12.5mg 12.5 mg, Univers e 0-12 -12 IV ity of (PHENERGAN) 06:30: 06:38 Piggyback, [place] 12.5 mg in 00 :00 ONCE, 1 Medica l NaCl 0.9% dose, On [place] (NS) 50 mL Wed IV 02/21/22 piggyback [...] :00 ONCE, 1 Medical dose, On Branch [facility] 02/21/22 at 0130, [place] diphenhydrA 2021-05- No 25mg 25 mg, Uni vers MINE 002-21 Slow IV ity of (BENADRYL) 06:30: 06:38 [place], [place] injection 00 :00 ONCE, 1 Medical 25 mg dose, On Branch 02/21/22 at 0130, [place] FENTanyl PF 2021-05 No 50ug 50 mcg, Un sushant (SUBLIMAZE 02-18 Slow IV ity o f (PF)) 20:30: 19:44 [place], [place] injection 00 :00 ONCE, 1 Medical 50 mcg dose, On Branch [place] 02/18/22 at 1530, Routine ketorolac 2021-05 No 30mg 30 mg, Unive rs (TORADOL) 002-18 Slow IV ity of injection 20:15: 20:09 Push, [place] 30 mg 00 :00 ONCE, 1 Medical dose, On Branch [place] 02/18/22 at 1515, [place] iopamidol 2021-05- No [id number] 60mL 60 mL, Un sushant (ISOVUE 02-18 [...] 1 Medical 50 mcg dose, On [facility] 02/18/22 at 1300, Routine ondansetron 2021-05- No 4mg 4 mg, Slow Univers (ZOFRAN 02-18 IV Push, ity of (PF)) 17:15: 17:27 ONCE, 1 [place] injection 4 00 :00 dose, On Medi yessi mg [facility] 02/18/22 at 1215, [place] morpHINE (2 2021- No 4mg 4 mg, Slow Univers mg/mL) 01-18 IV Push, ity of injection 4 15:15: 14:49 ONCE, 1 [place] mg 00 :00 dose, On [facility] 01/18/22 Branch at 1015, STAT ondansetron 2021- No 4mg 4 mg, Slow Univers (ZOFRAN 01-18 IV Push, ity of (PF)) 13:30: 13:33 ONCE, 1 [place] injection 4 00 :00 dose, On Medi yessi mg [facility] 01/18/22 Branch at 0830, [place] morpHINE (4 2021- No 4mg 4 mg, Slow Univers mg/mL) 01-18 IV Push, ity of injection 4 13:30: 13:34 ONCE, 1 [place] mg 00 :00 dose, On [facility] 01/18/22 Branch at 0830, STAT morpHINE (4 2021- No 4mg 4 mg, Slow Univers mg/mL) 01-18 IV Push, ity of injection 4 12:30: 11:39 ONCE, 1 [place] mg 00 :00 dose, On [facility] 01/18/22 Branch at 0730, STAT famotidine 2021-2021- No 20mg 20 mg, Univ ers (PEPCID 01-18 Slow IV ity of (PF)) 11:30: 10:52 Push, [place] injection 00 :00 ONCE, 1 Medical 20 mg dose, On [facility] 01/18/22 at 0630, [place] ondansetron 2021- No 4mg 4 mg, Slow Univers (ZOFRAN 01-18 IV Push, ity of (PF)) 11:30: 10:52 ONCE, 1 [place] injection 4 00 :00 dose, On Medi yessi mg [place] 01/18/22 Branch at 0630, [place] iodixanoL 2021- No [id number] 80mL 80 mL, U nivers (VISIPAQUE 01-18 [...] Indication s: acute pain ondansetron 0 Yes [id number] 4mg Take 1 [facility] 4 mg 01-18 [id number] tablet by ity of disintegrat 00:00: mouth [place] ing tablet 00 every 8 Medica l (eight) Branch hours as needed for Nausea and Vomiting (N/V). ibuprofen 2021-0 Yes [id number] 600mg Take 1 [facility] 600 mg 01-18 [id number] tablet by ity of tablet 00:00: mouth [place] 00 every 6 Medical (six) Branch hours as needed for Pain (scale 4-6). traMADoL 50 2021-0 Yes [id number] 50mg Take 1 Univ ers mg tablet -08 tablet by ity o f 00:00: mouth [place] 00 every 6 Medical (six) Branch hours as needed for Pain (scale 7-10). Indication s: acute pain ondansetron 2022-0 Yes [id number] 4mg Take 1 Univers 4 mg 9-08 [id number] tablet by ity of disintegrat 00:00: mouth [place] ing tablet 00 every 8 Medica l (eight) Branch hours as needed for Nausea and Vomiting (N/V). ibuprofen 2022-0 Yes [id number] 600mg Take 1 [facility] 600 mg 9-08 [id number] tablet by ity of tablet 00:00: mouth [place] 00 every 6 Medical (six) Branch hours as needed for Pain (scale 4-6). traMADoL 50 2021-0 Yes [id number] 50mg Take 1 Univ ers mg tablet 9-08 tablet by ity o f 00:00: mouth [place] 00 every 6 Medical (six) Branch hours as needed for Pain (scale 7-10). Indication s: acute pain ondansetron 2-0 Yes [id number] 4mg Take 1 Univers 4 mg 9-08 [id number] tablet by ity of disintegrat 00:00: mouth [place] ing tablet 00 every 8 Medica l (eight) Branch hours as needed for Nausea and Vomiting (N/V). ibuprofen 2-0 Yes [id number] 600mg Take 1 [facility] 600 mg 9-08 [id number] tablet by ity of tablet 00:00: mouth [place] 00 every 6 Medical (six) Branch hours as needed for Pain (scale 4-6). traMADoL 50 2021-0 Yes [id number] 50mg Take 1 Univ ers mg tablet 9-08 tablet by ity o f 00:00: mouth [place] 00 every 6 Medical (six) Branch hours as needed for Pain (scale 7-10). Indication s: acute pain ondansetron 2022-0 Yes [id number] 4mg Take 1 Univers 4 mg 9-08 [id number] tablet by ity of disintegrat 00:00: mouth [place] ing tablet 00 every 8 Medica l (eight) Branch hours as needed for Nausea and Vomiting (N/V). ibuprofen 2022-0 Yes [id number] 600mg Take 1 [facility] 600 mg 9-08 [id number] tablet by ity of tablet 00:00: mouth [place] 00 every 6 Medical (six) Branch hours as needed for Pain (scale 4-6). traMADoL 50 2021-0 Yes [id number] 50mg Take 1 Univ ers mg tablet 9-08 tablet by ity o f 00:00: mouth [place] 00 every 6 Medical (six) Branch hours as needed for Pain (scale 7-10). Indication s: acute pain ondansetron 2022-0 Yes [id number] 4mg Take 1 Univers 4 mg 9-08 [id number] tablet by ity of disintegrat 00:00: mouth [place] ing tablet 00 every 8 Medica l (eight) Branch hours as needed for Nausea and Vomiting (N/V). ibuprofen 2022-0 Yes [id number] 600mg Take 1 [facility] 600 mg 9-08 [id number] tablet by ity of tablet 00:00: mouth [place] 00 every 6 Medical (six) Branch hours as needed for Pain (scale 4-6). traMADoL 50 2-0 Yes [id number] 50mg Take 1 Univ ers mg tablet 9-08 tablet by ity o f 00:00: mouth [place] 00 every 6 Medical (six) Branch hours as needed for Pain (scale 7-10). Indication s: acute pain ondansetron 2022-0 Yes [id number] 4mg Take 1 Univers 4 mg 9-08 [id number] tablet by ity of disintegrat 00:00: mouth [place] ing tablet 00 every 8 Medica l (eight) Branch hours as needed for Nausea and Vomiting (N/V). ibuprofen 2022-0 Yes [id number] 600mg Take 1 [facility] 600 mg 9-08 [id number] tablet by ity of tablet 00:00: mouth [place] 00 every 6 Medical (six) Branch hours as needed for Pain (scale 4-6). traMADoL 50 2022-0 Yes [id number] 50mg Take 1 Univ ers mg tablet 9-08 tablet by ity o f 00:00: mouth [place] 00 every 6 Medical (six) Branch hours as needed for Pain (scale 7-10). Indication s: acute pain ondansetron 2022-0 Yes [id number] 4mg Take 1 Univers 4 mg 9-08 [id number] tablet by ity of disintegrat 00:00: mouth [place] ing tablet 00 every 8 Medica l (eight) Branch hours as needed for Nausea and Vomiting (N/V). ibuprofen 2022-0 Yes [id number] 600mg Take 1 [facility] 600 mg 9-08 [id number] tablet by ity of tablet 00:00: mouth [place] 00 every 6 Medical (six) Branch hours as needed for Pain (scale 4-6). traMADoL 50 0 Yes [id number] 50mg Take 1 Univ ers mg tablet 9-08 tablet by ity o f 00:00: mouth [place] 00 every 6 Medical (six) Branch hours as needed for Pain (scale 7-10). Indication s: acute pain ondansetron 0 Yes [id number] 4mg Take 1 Univers 4 mg 9- [id number] tablet by ity of disintegrat 00:00: mouth [place] ing tablet 00 every 8 Medica l (eight) Branch hours as needed for Nausea and Vomiting (N/V). ibuprofen Yes [id number] 600mg Take 1 [facility] 600 mg 9- [id number] tablet by ity of tablet 00:00: mouth [place] 00 every 6 Medical (six) Branch hours as needed for Pain (scale 4-6). traMADoL 50 2021- No [id number] 50mg Take 1 Uni vers mg tablet 01-18-18 tablet by ity of 00:00: 00:00 mouth [place] 00 :00 every 6 Medical (six) Branch hours as needed for Pain (scale 7-10). Indication s: acute pain ondansetron 2021- No [id number] 4mg Take 1 Univers 4 mg -02-27 [id number] tablet by ity of disintegrat 00:00: 00:00 mouth [place] ing tablet 00 :00 every 8 Medica l (eight) Branch hours as needed for Nausea and Vomiting (N/V). ibuprofen 2021- No [id number] 600mg Take 1 [facility] 600 mg 9- 10-18 [id number] tablet by ity o f tablet 00:00: [...] Indication s: acute pain ondansetron 2021- No [id number] 4mg Take 1 [facility] 4 mg 9-08 10-18 [id number] tablet by ity of disintegrat 00:00: 00:00 mouth [place] ing tablet 00 :00 every 8 Medica l (eight) Branch hours as needed for Nausea and Vomiting (N/V). ibuprofen 2021- No [id number] 600mg Take 1 [facility] 600 mg 01-18 [id number] tablet by ity o f tablet 00:00: [...] Indication s: acute pain ondansetron 2021-2021- No [id number] 4mg Take 1 [facility] 4 mg 01-18 [id number] tablet by ity of disintegrat 00:00: 00:00 mouth [place] ing tablet 00 :00 every 8 Medica l (eight) Branch hours as needed for Nausea and Vomiting (N/V). ibuprofen 2021- No [id number] 600mg Take 1 [facility] 600 mg 01-18 [id number] tablet by ity o f tablet 00:00: [...] Indication s: acute pain ondansetron 2021-2021- No [id number] 4mg Take 1 [facility] 4 mg 01-18 [id number] tablet by ity of disintegrat 00:00: 00:00 mouth [place] ing tablet 00 :00 every 8 Medica l (eight) Branch hours as needed for Nausea and Vomiting (N/V). ibuprofen 2021-2- No [id number] 600mg Take 1 [facility] 600 mg 01-18 [id number] tablet by ity o f tablet 00:00: 00:00 mouth [place] 00 :00 every 6 Medical (six) Branch hours as needed for Pain (scale 4-6). predniSONE 2021- No [id number] 40mg Take 2 Univers 20 mg 01-16 tablets by ity of tablet 00:00: 04:59 mouth in [place] 00 :00 the Medical morning Branch for 7 days. predniSONE 2021-2021- No [id number] 40mg Take 2 Univers 20 mg 01-16 tablets by ity of tablet 00:00: 04:59 mouth in [place] 00 :00 the [facility] Branch for 7 days. morpHINE (4 2021- [...] at 0915, 1 mL proMETHazin 0 Yes [id number] 25mg Take 1 Univers e 25 mg 9-05 tablet by ity of tablet 00:00: mouth [place] 00 every 6 Medical (six) Branch hours as needed for Nausea and Vomiting (N/V). proMETHazin 2021-0 Yes [id number] 25mg Take 1 Univers e 25 mg 9-05 tablet by ity of tablet 00:00: mouth [place] 00 every 6 Medical (six) Branch hours as needed for Nausea and Vomiting (N/V). proMETHazin 0 Yes [id number] 25mg Take 1 Univers e 25 mg 9-05 tablet by ity of tablet 00:00: mouth [place] 00 every 6 Medical (six) Branch hours as needed for Nausea and Vomiting (N/V). proMETHazin 2021-0 Yes [id number] 25mg Take 1 Univers e 25 mg 9-05 tablet by ity of tablet 00:00: mouth [place] 00 every 6 Medical (six) Branch hours as needed for Nausea and Vomiting (N/V). proMETHazin 2021-0 Yes [id number] 25mg Take 1 Univers e 25 mg 9-05 tablet by ity of tablet 00:00: mouth [place] 00 every 6 Medical (six) Branch hours as needed for Nausea and Vomiting (N/V). proMETHazin 2021-0 Yes [id number] 25mg Take 1 Univers e 25 mg 9-05 tablet by ity of tablet 00:00: mouth [place] 00 every 6 Medical (six) Branch hours as needed for Nausea and Vomiting (N/V). proMETHazin 2021-0 Yes [id number] 25mg Take 1 Univers e 25 mg 9-05 tablet by ity of tablet 00:00: mouth [place] 00 every 6 Medical (six) Branch hours as needed for Nausea and Vomiting (N/V). proMETHazin 2021-0 Yes [id number] 25mg Take 1 Univers e 25 mg 9-05 tablet by ity of tablet 00:00: mouth [place] 00 every 6 Medical (six) Branch hours as needed for Nausea and Vomiting (N/V). proMETHazin 2021- Yes [id number] 25mg Take 1 Univers e 25 mg 9-05 tablet by ity of tablet 00:00: mouth [place] 00 every 6 Medical (six) Branch hours as needed for Nausea and Vomiting (N/V). proMETHazin 2021- No [id number] 25mg Take 1 Univers e 25 mg 9-05 10-18 tablet by ity of tablet 00:00: 00:00 mouth [place] 00 :00 every 6 Medical (six) Branch hours as needed for Nausea and Vomiting (N/V). proMETHazin 2021- No [id number] 25mg Take 1 [facility] e 25 mg 9-05 10-18 tablet by ity of tablet 00:00: 00:00 mouth [place] 00 :00 every 6 Medical (six) Branch hours as needed for Nausea and Vomiting (N/V). proMETHazin 2021- No [id number] 25mg Take 1 [facility] e 25 mg 9-05 10-18 tablet by ity of tablet 00:00: 00:00 mouth [place] 00 :00 every 6 Medical (six) Branch hours as needed for Nausea and Vomiting (N/V). proMETHazin 2021- No [id number] 25mg Take 1 [facility] e 25 mg [...] 01/08/22 at 1845, [place] ondansetron 0 Yes [id number] 4mg Take 1 [facility] 4 mg 8-29 tablet by ity of disintegrat 00:00: mouth [place] ing tablet 00 every 8 Medica l (eight) Branch hours as needed for Nausea and Vomiting (N/V). acetaminoph Yes [id number] 650mg Take 1 [facility] en (TYLENOL 8-29 tablet by ity of ARTHRITIS 00:00: mouth [place] PAIN) 650 00 every 8 Medical mg CR (eight) Branch tablet hours as needed for Pain. ketorolac 0 Yes [id number] 10mg Take 1 [facility] 10 mg 8-29 tablet by ity of tablet 00:00: mouth [place] 00 every 6 Medical (six) Branch hours as needed for Pain (scale 4-6) or Pain (scale 7-10). metaxalone 0 Yes [id number] 800mg Take 1 [facility] (SKELAXIN) 8-29 tablet by ity of 800 mg 00:00: mouth in [place] tablet 00 the Medical morning Branch and 1 tablet at noon and 1 tablet in the evening. ondansetron 0 Yes [id number] 4mg Take 1 [facility] 4 mg 8-29 tablet by ity of disintegrat 00:00: mouth [place] ing tablet 00 every 8 Medica l (eight) Branch hours as needed for Nausea and Vomiting (N/V). acetaminoph 2022-0 Yes [id number] 650mg Take 1 [facility] en (TYLENOL 8-29 tablet by ity of ARTHRITIS 00:00: mouth [place] PAIN) 650 00 every 8 Medical mg CR (eight) Branch tablet hours as needed for Pain. ketorolac 2022-0 Yes [id number] 10mg Take 1 [facility] 10 mg 8-29 tablet by ity of tablet 00:00: mouth [place] 00 every 6 Medical (six) Branch hours as needed for Pain (scale 4-6) or Pain (scale 7-10). metaxalone 2022-0 Yes [id number] 800mg Take 1 [facility] (SKELAXIN) 8-29 tablet by ity of 800 mg 00:00: mouth in [place] tablet 00 the Medical morning Branch and 1 tablet at noon and 1 tablet in the evening. ondansetron 2-0 Yes [id number] 4mg Take 1 [facility] 4 mg 8-29 tablet by ity of disintegrat 00:00: mouth [place] ing tablet 00 every 8 Medica l (eight) Branch hours as needed for Nausea and Vomiting (N/V). acetaminoph 2-0 Yes [id number] 650mg Take 1 [facility] en (TYLENOL 8-29 tablet by ity of ARTHRITIS 00:00: mouth [place] PAIN) 650 00 every 8 Medical mg CR (eight) Branch tablet hours as needed for Pain. ketorolac 2022-0 Yes [id number] 10mg Take 1 [facility] 10 mg 8-29 tablet by ity of tablet 00:00: mouth [place] 00 every 6 Medical (six) Branch hours as needed for Pain (scale 4-6) or Pain (scale 7-10). metaxalone 2022-0 Yes [id number] 800mg Take 1 [facility] (SKELAXIN) 8-29 tablet by ity of 800 mg 00:00: mouth in [place] tablet 00 the Medical morning Branch and 1 tablet at noon and 1 tablet in the evening. ondansetron 2022-0 Yes [id number] 4mg Take 1 [facility] 4 mg 8-29 tablet by ity of disintegrat 00:00: mouth [place] ing tablet 00 every 8 Medica l (eight) Branch hours as needed for Nausea and Vomiting (N/V). acetaminoph 2022-0 Yes [id number] 650mg Take 1 [facility] en (TYLENOL 8-29 tablet by ity of ARTHRITIS 00:00: mouth [place] PAIN) 650 00 every 8 Medical mg CR (eight) Branch tablet hours as needed for Pain. ketorolac 2022-0 Yes [id number] 10mg Take 1 [facility] 10 mg 8-29 tablet by ity of tablet 00:00: mouth [place] 00 every 6 Medical (six) Branch hours as needed for Pain (scale 4-6) or Pain (scale 7-10). metaxalone 202-0 Yes [id number] 800mg Take 1 [facility] (SKELAXIN) 8-29 tablet by ity of 800 mg 00:00: mouth in [place] tablet 00 the Medical morning Branch and 1 tablet at noon and 1 tablet in the evening. ondansetron 2021-0 Yes [id number] 4mg Take 1 [facility] 4 mg 8-29 tablet by ity of disintegrat 00:00: mouth [place] ing tablet 00 every 8 Medica l (eight) Branch hours as needed for Nausea and Vomiting (N/V). acetaminoph 2021-0 Yes [id number] 650mg Take 1 [facility] en (TYLENOL 8-29 tablet by ity of ARTHRITIS 00:00: mouth [place] PAIN) 650 00 every 8 Medical mg CR (eight) Branch tablet hours as needed for Pain. ketorolac 2021-0 Yes [id number] 10mg Take 1 [facility] 10 mg 8-29 tablet by ity of tablet 00:00: mouth [place] 00 every 6 Medical (six) Branch hours as needed for Pain (scale 4-6) or Pain (scale 7-10). metaxalone 2-0 Yes [id number] 800mg Take 1 [facility] (SKELAXIN) 8-29 tablet by ity of 800 mg 00:00: mouth in [place] tablet 00 the Medical morning Branch and 1 tablet at noon and 1 tablet in the evening. ondansetron 2022-0 Yes [id number] 4mg Take 1 [facility] 4 mg 8-29 tablet by ity of disintegrat 00:00: mouth [place] ing tablet 00 every 8 Medica l (eight) Branch hours as needed for Nausea and Vomiting (N/V). acetaminoph 2022-0 Yes [id number] 650mg Take 1 [facility] en (TYLENOL 8-29 tablet by ity of ARTHRITIS 00:00: mouth [place] PAIN) 650 00 every 8 Medical mg CR (eight) Branch tablet hours as needed for Pain. ketorolac 202-0 Yes [id number] 10mg Take 1 [facility] 10 mg 8-29 tablet by ity of tablet 00:00: mouth [place] 00 every 6 Medical (six) Branch hours as needed for Pain (scale 4-6) or Pain (scale 7-10). metaxalone 2021-0 Yes [id number] 800mg Take 1 [facility] (SKELAXIN) 8-29 tablet by ity of 800 mg 00:00: mouth in [place] tablet 00 the Medical morning Branch and 1 tablet at noon and 1 tablet in the evening. ondansetron 2021-0 Yes [id number] 4mg Take 1 [facility] 4 mg 8-29 tablet by ity of disintegrat 00:00: mouth [place] ing tablet 00 every 8 Medica l (eight) Branch hours as needed for Nausea and Vomiting (N/V). acetaminoph 2021-0 Yes [id number] 650mg Take 1 [facility] en (TYLENOL 8-29 tablet by ity of ARTHRITIS 00:00: mouth [place] PAIN) 650 00 every 8 Medical mg CR (eight) Branch tablet hours as needed for Pain. ketorolac 2021-0 Yes [id number] 10mg Take 1 [facility] 10 mg 8-29 tablet by ity of tablet 00:00: mouth [place] 00 every 6 Medical (six) Branch hours as needed for Pain (scale 4-6) or Pain (scale 7-10). metaxalone 2021-0 Yes [id number] 800mg Take 1 [facility] (SKELAXIN) 8-29 tablet by ity of 800 mg 00:00: mouth in [place] tablet 00 the Medical morning Branch and 1 tablet at noon and 1 tablet in the evening. ondansetron 2022-0 Yes [id number] 4mg Take 1 [facility] 4 mg 8-29 tablet by ity of disintegrat 00:00: mouth [place] ing tablet 00 every 8 Medica l (eight) Branch hours as needed for Nausea and Vomiting (N/V). acetaminoph 2021-0 Yes [id number] 650mg Take 1 [facility] en (TYLENOL 8-29 tablet by ity of ARTHRITIS 00:00: mouth [place] PAIN) 650 00 every 8 Medical mg CR (eight) Branch tablet hours as needed for Pain. ketorolac 2022-0 Yes [id number] 10mg Take 1 [facility] 10 mg 8-29 tablet by ity of tablet 00:00: mouth [place] 00 every 6 Medical (six) Branch hours as needed for Pain (scale 4-6) or Pain (scale 7-10). metaxalone 202-0 Yes [id number] 800mg Take 1 [facility] (SKELAXIN) 8-29 tablet by ity of 800 mg 00:00: mouth in [place] tablet 00 the Medical morning Branch and 1 tablet at noon and 1 tablet in the evening. ondansetron 2021-0 Yes [id number] 4mg Take 1 [facility] 4 mg 8-29 tablet by ity of disintegrat 00:00: mouth [place] ing tablet 00 every 8 Medica l (eight) Branch hours as needed for Nausea and Vomiting (N/V). acetaminoph 2021-0 Yes [id number] 650mg Take 1 [facility] en (TYLENOL 8-29 tablet by ity of ARTHRITIS 00:00: mouth [place] PAIN) 650 00 every 8 Medical mg CR (eight) Branch tablet hours as needed for Pain. ketorolac 2021-0 Yes [id number] 10mg Take 1 [facility] 10 mg 8-29 tablet by ity of tablet 00:00: mouth [place] 00 every 6 Medical (six) Branch hours as needed for Pain (scale 4-6) or Pain (scale 7-10). metaxalone 2-0 Yes [id number] 800mg Take 1 [facility] (SKELAXIN) 8-29 tablet by ity of 800 mg 00:00: mouth in [place] tablet 00 the Medical morning Branch and 1 tablet at noon and 1 tablet in the evening. ondansetron 2022-0 Yes [id number] 4mg Take 1 [facility] 4 mg 8-29 tablet by ity of disintegrat 00:00: mouth [place] ing tablet 00 every 8 Medica l (eight) Branch hours as needed for Nausea and Vomiting (N/V). acetaminoph 2022-0 Yes [id number] 650mg Take 1 [facility] en (TYLENOL 8-29 tablet by ity of ARTHRITIS 00:00: mouth [place] PAIN) 650 00 every 8 Medical mg CR (eight) Branch tablet hours as needed for Pain. ketorolac 2021-0 Yes [id number] 10mg Take 1 [facility] 10 mg 8-29 tablet by ity of tablet 00:00: mouth [place] 00 every 6 Medical (six) Branch hours as needed for Pain (scale 4-6) or Pain (scale 7-10). metaxalone 2021-0 Yes [id number] 800mg Take 1 [facility] (SKELAXIN) 8-29 tablet by ity of 800 mg 00:00: mouth in [place] tablet 00 the Medical morning Branch and 1 tablet at noon and 1 tablet in the evening. acetaminoph 2021-0 Yes [id number] 650mg Take 1 [facility] en (TYLENOL 8-29 tablet by ity of ARTHRITIS 00:00: mouth [place] PAIN) 650 00 every 8 Medical mg CR (eight) Branch tablet hours as needed for Pain. acetaminoph 2021-0 Yes [id number] 650mg Take 1 [facility] en (TYLENOL 8-29 tablet by ity of ARTHRITIS 00:00: mouth [place] PAIN) 650 00 every 8 Medical mg CR (eight) Branch tablet hours as needed for Pain. acetaminoph 0 Yes [id number] 650mg Take 1 [facility] en (TYLENOL 8-29 tablet by ity of ARTHRITIS 00:00: mouth [place] PAIN) 650 00 every 8 Medical mg CR (eight) Branch tablet hours as needed for Pain. acetaminoph 2021-0 Yes [id number] 650mg Take 1 [facility] en (TYLENOL 8-29 tablet by ity of ARTHRITIS 00:00: mouth [place] PAIN) 650 00 every 8 Medical mg CR (eight) Branch tablet hours as needed for Pain. acetaminoph 0 Yes [id number] 650mg Take 1 [facility] en (TYLENOL 8-29 tablet by ity of ARTHRITIS 00:00: mouth [place] PAIN) 650 00 every 8 Medical mg CR (eight) Branch tablet hours as needed for Pain. acetaminoph 2021-0 Yes [id number] 650mg Take 1 [facility] en (TYLENOL 8-29 tablet by ity of ARTHRITIS 00:00: mouth [place] PAIN) 650 00 every 8 Medical mg CR (eight) Branch tablet hours as needed for Pain. acetaminoph 2021-0 Yes [id number] 650mg Take 1 [facility] en (TYLENOL 8-29 tablet by ity of ARTHRITIS 00:00: mouth [place] PAIN) 650 00 every 8 Medical mg CR (eight) Branch tablet hours as needed for Pain. acetaminoph 2021-0 Yes [id number] 650mg Take 1 [facility] en (TYLENOL 8-29 tablet by ity of ARTHRITIS 00:00: mouth [place] PAIN) 650 00 every 8 Medical mg CR (eight) Branch tablet hours as needed for Pain. acetaminoph 0 Yes [id number] 650mg Take 1 [facility] en (TYLENOL 8-29 tablet by ity of ARTHRITIS 00:00: mouth [place] PAIN) 650 00 every 8 Medical mg CR (eight) Branch tablet hours as needed for Pain. acetaminoph 0 Yes [id number] 650mg Take 1 [facility] en (TYLENOL 8-29 tablet by ity of ARTHRITIS 00:00: mouth [place] PAIN) 650 00 every 8 Medical mg CR (eight) Branch tablet hours as needed for Pain. acetaminoph 0 Yes [id number] 650mg Take 1 [facility] en (TYLENOL 8-29 tablet by ity of ARTHRITIS 00:00: mouth [place] PAIN) 650 00 every 8 Medical mg CR (eight) Branch tablet hours as needed for Pain. acetaminoph 0 Yes [id number] 650mg Take 1 [facility] en (TYLENOL 8-29 tablet by ity of ARTHRITIS 00:00: mouth [place] PAIN) 650 00 every 8 Medical mg CR (eight) Branch tablet hours as needed for Pain. acetaminoph 0 Yes [id number] 650mg Take 1 [facility] en (TYLENOL 8-29 tablet by ity of ARTHRITIS 00:00: mouth [place] PAIN) 650 00 every 8 Medical mg CR (eight) Branch tablet hours as needed for Pain. acetaminoph 0 Yes [id number] 650mg Take 1 [facility] en (TYLENOL 8-29 tablet by ity of ARTHRITIS 00:00: mouth [place] PAIN) 650 00 every 8 Medical mg CR (eight) Branch tablet hours as needed for Pain. acetaminoph 0 Yes [id number] 650mg Take 1 [facility] en (TYLENOL 8-29 tablet by ity of ARTHRITIS 00:00: mouth [place] PAIN) 650 00 every 8 Medical mg CR (eight) Branch tablet hours as needed for Pain. acetaminoph 2021-0 Yes [id number] 650mg Take 1 [facility] en (TYLENOL 8-29 tablet by ity of ARTHRITIS 00:00: mouth [place] PAIN) 650 00 every 8 Medical mg CR (eight) Branch tablet hours as needed for Pain. acetaminoph 2021-0 Yes [id number] 650mg Take 1 [facility] en (TYLENOL 8-29 tablet by ity of ARTHRITIS 00:00: mouth [place] PAIN) 650 00 every 8 Medical mg CR (eight) Branch tablet hours as needed for Pain. acetaminoph 2- No [id number] 650mg Take 1 [facility] en (TYLENOL 8-29 11-26 tablet by it y of ARTHRITIS 00:00: 00:00 mouth [place] PAIN) 650 00 :00 every 8 Medical mg CR (eight) Branch tablet hours as needed for Pain. ondansetron 2021-0 2- No [id number] 4mg Take 1 [facility] 4 mg 8-29 10-18 tablet by ity of disintegrat 00:00: 00:00 [place] ing tablet 00 :00 every 8 Medica l (eight) Branch hours as needed for Nausea and Vomiting (N/V). ketorolac 2021-0 2021- No [id number] 10mg Take 1 [facility] 10 mg 8-29 10-18 tablet by ity of tablet 00:00: 00:00 mouth [place] 00 :00 every 6 Medical (six) Branch hours as needed for Pain (scale 4-6) or Pain (scale 7-10). metaxalone 2021-0 2021- No [id number] 800mg Take 1 [facility] (SKELAXIN) 8-29 10-18 tablet by ity of 800 mg 00:00: 00:00 mouth in [place] tablet 00 :00 the Medical morning Branch and 1 tablet at noon and 1 tablet in the evening. ondansetron 2021-0 2021- No [id number] 4mg Take 1 [facility] 4 mg 8-29 10-18 tablet by ity of disintegrat 00:00: 00:00 [place] ing tablet 00 :00 every 8 Medica l (eight) Branch hours as needed for Nausea and Vomiting (N/V). ketorolac 2-0 2- No [id number] 10mg Take 1 [facility] 10 mg 8-29 10-18 tablet by ity of tablet 00:00: 00:00 mouth [place] 00 :00 every 6 Medical (six) Branch hours as needed for Pain (scale 4-6) or Pain (scale 7-10). metaxalone 2022-0 2022- No [id number] 800mg Take 1 [facility] (SKELAXIN) 8-29 10-18 tablet by ity of 800 mg 00:00: 00:00 mouth in [place] tablet 00 :00 the Medical morning Branch and 1 tablet at noon and 1 tablet in the evening. ondansetron 2022-0 2022- No [id number] 4mg Take 1 [facility] 4 mg 8-29 10-18 tablet by ity of disintegrat 00:00: 00:00 mouth [place] tablet 00 :00 every 8 Medica l (eight) Branch hours as needed for Nausea and Vomiting (N/V). ketorolac 2022-0 2022- No [id number] 10mg Take 1 [facility] 10 mg 8-29 10-18 tablet by ity of tablet 00:00: 00:00 mouth [place] 00 :00 every 6 Medical (six) Branch hours as needed for Pain (scale 4-6) or Pain (scale 7-10). metaxalone 2021-0 2021- No [id number] 800mg Take 1 [facility] (SKELAXIN) 8-29 10-18 tablet by ity of 800 mg 00:00: 00:00 mouth in [place] tablet 00 :00 the Medical morning Branch and 1 tablet at noon and 1 tablet in the evening. ondansetron 2022-0 2021- No [id number] 4mg Take 1 [facility] 4 mg 8-29 10-18 tablet by ity of disintegrat 00:00: 00:00 mouth [place] tablet 00 :00 every 8 Medica l (eight) Branch hours as needed for Nausea and Vomiting (N/V). ketorolac 2022-0 2022- No [id number] 10mg Take 1 [facility] 10 mg 8-29 10-18 tablet by ity of tablet 00:00: 00:00 mouth [place] 00 :00 every 6 Medical (six) Branch hours as needed for Pain (scale 4-6) or Pain (scale 7-10). metaxalone 2022-0 2022- No [id number] 800mg Take 1 [facility] (SKELAXIN) 8-29 10-18 [...] mouth. ity of supp. no.8 15:08: 00:00 [place] (TRAZAMINE 46 :00 Medical ORAL) Branch diphenhydrA 0 Yes 25mg Take 25 mg [facility] MINE 25 mg 12-12 by mouth ity o f capsule 13:03: every 6 [place] 04 (six) Medical hours as Branch needed for Allergies. carbamazepi 0 Yes Take by Uni vers ne 8 mouth. ity of (TEGRETOL 13:03: [place] ORAL) 04 Medical Branch citalopram Yes Take by [facility] ers hydrobromid 8 mouth. ity of e [...] hydrobromid 8-02 mouth. ity of e 13:03: [place] (CITALOPRAM 04 Medical ORAL) Branch ALBUTEROL Yes [facility] INHALE 8 ity of 13:03: Medical Branch diphenhydrA Yes 25mg Take 25 mg [facility] MINE 25 mg 02 by mouth ity o f capsule 13:03: every 6 [place] [address] (six) Medical hours as Branch needed for Allergies. carbamazepi Yes Take by [facility] vers ne 8-02 mouth. ity of (TEGRETOL 13:03: [place] ORAL) Medical Branch citalopram Yes Take by [facility] ers hydrobromid 8-02 mouth. ity of e 13:03: [place] (CITALOPRAM 04 Medical ORAL) Branch ALBUTEROL Yes [facility] INHALE 12-12 ity of 13:03: [place] [address] Medical Branch diphenhydrA Yes 25mg Take 25 mg [facility] MINE 25 mg 12-12 by mouth ity o f capsule 13:03: every 6 [place] [address] (six) Medical hours as Branch needed for Allergies. carbamazepi Yes Take by [facility] vers ne 8-02 mouth. ity of (TEGRETOL 13:03: [place] ORAL) Medical Branch citalopram Yes Take by [facility] ers hydrobromid 8-02 mouth. ity of e 13:03: [place] (CITALOPRAM 04 Medical ORAL) Branch ALBUTEROL Yes [facility] INHALE 12-12 ity of 13:03: [place] [address] Medical Branch diphenhydrA Yes 25mg Take 25 mg [facility] MINE 25 mg 02 by mouth ity o f capsule 13:03: every 6 [place] [address] (six) Medical hours as Branch needed for Allergies. carbamazepi Yes Take by [facility] vers ne 8-02 mouth. ity of (TEGRETOL 13:03: [place] ORAL) 04 Medical Branch citalopram Yes Take by [facility] ers hydrobromid 8-02 mouth. ity of e 13:03: [place] (CITALOPRAM 04 Medical ORAL) Branch ALBUTEROL Yes [facility] INHALE 8 ity of 13:03: [place] [address] Medical Branch diphenhydrA Yes 25mg Take 25 mg [facility] MINE 25 mg 8-02 by mouth ity o f capsule 13:03: every 6 [place] [address] (six) Medical hours as Branch needed for Allergies. carbamazepi Yes Take by [facility] vers ne 8-02 mouth. ity of (TEGRETOL 13:03: [place] ORAL) Medical Branch citalopram Yes Take by [facility] ers hydrobromid 8- mouth. ity of e 13:03: [place] (CITALOPRAM 04 Medical ORAL) Branch ALBUTEROL 0 Yes [facility] INHALE 8 ity of 13:03: Medical Branch diphenhydrA Yes 25mg Take 25 mg [facility] MINE 25 mg 12-12 by mouth ity o f capsule 13:03: every 6 [place] [address] (six) Medical hours as Branch needed for Allergies. carbamazepi Yes Take by [facility] vers ne 8- mouth. ity of (TEGRETOL 13:03: [place] ORAL) Medical Branch citalopram Yes Take by [facility] ers hydrobromid 8- mouth. ity of e 13:03: [place] (CITALOPRAM 04 Medical ORAL) Branch ALBUTEROL Yes [facility] INHALE 12-12 ity of 13:03: [place] [address] Medical Branch diphenhydrA Yes 25mg Take 25 mg [facility] MINE 25 mg 12-12 by mouth ity o f capsule 13:03: every 6 [place] [address] (six) Medical hours as Branch needed for Allergies. carbamazepi Yes Take by [facility] vers ne 8- mouth. ity of (TEGRETOL 13:03: [place] ORAL) Medical Branch citalopram Yes Take by [facility] ers hydrobromid 8-02 mouth. ity of e 13:03: [place] (CITALOPRAM 04 Medical ORAL) Branch ALBUTEROL 0 Yes [facility] INHALE 8 ity of 13:03: [place] [address] Medical Branch diphenhydrA Yes 25mg Take 25 mg [facility] MINE 25 mg 802 by mouth ity o f capsule 13:03: every 6 [place] [address] (six) Medical hours as Branch needed for Allergies. carbamazepi 0 Yes Take by [facility] vers ne 8-02 mouth. ity of (TEGRETOL 13:03: [place] ORAL) Medical Branch citalopram Yes Take by [facility] ers hydrobromid 8-02 mouth. ity of e 13:03: [place] (CITALOPRAM 04 Medical ORAL) Branch ALBUTEROL 0 Yes [facility] INHALE 8-02 ity of 13:03: [address] Branch diphenhydrA 0 Yes 25mg Take 25 mg [facility] MINE 25 mg 802 by mouth ity o f capsule 13:03: every 6 [place] [address] (six) Medical hours as Branch needed for Allergies. carbamazepi 0 Yes Take by [facility] vers ne 8-02 mouth. ity of (TEGRETOL 13:03: [place] ORAL) Medical Branch citalopram Yes Take by [facility] ers hydrobromid 8-02 mouth. ity of e 13:03: [place] (CITALOPRAM 04 Medical ORAL) [place] ALBUTEROL Yes Univers INHALE 8- ity of 13:03: [address] diphenhydrA Yes 25mg Take 25 mg [facility] MINE 25 mg 02 by mouth ity o f capsule 13:03: every 6 [place] [address] (six) Medical hours as Branch needed for Allergies. carbamazepi 0 Yes Take by [facility] vers ne 8-02 mouth. ity of (TEGRETOL 13:03: [place] ORAL) [address] [place] [address] citalopram Yes Take by [facility] ers hydrobromid 8-02 mouth. ity of e 13:03: [place] (CITALOPRAM 04 Medical ORAL) Branch ALBUTEROL Yes [facility] INHALE 8-02 ity of 13:03: [address] Branch ALBUTEROL Yes [facility] INHALE 8-02 ity of 13:03: [address] Branch ALBUTEROL Yes [facility] INHALE 8-02 ity of 13:03: [address] ALBUTEROL 0 Yes [facility] INHALE 8-02 ity of 13:03: [address] ALBUTEROL 0 Yes [facility] INHALE 8-02 ity of 13:03: [place] [facility] ALBUTEROL Yes Univers INHALE 8-02 ity of 13:03: [address] ALBUTEROL Yes [facility] INHALE 8-02 ity of 13:03: [place] [facility] ALBUTEROL Yes [facility] INHALE 8-02 ity of 13:03: [place] [facility] ALBUTEROL Yes [facility] INHALE 8-02 ity of 13:03: [place] [facility] ALBUTEROL Yes [facility] INHALE 8-02 ity of 13:03: [place] [facility] ALBUTEROL Yes [facility] INHALE 8-02 ity of 13:03: [place] [facility] ALBUTEROL Yes [facility] INHALE 8-02 ity of 13:03: [place] [facility] ALBUTEROL Yes [facility] INHALE 8-02 ity of 13:03: [place] [facility] ALBUTEROL Yes [facility] INHALE 8-02 ity of 13:03: [place] [facility] ALBUTEROL Yes [facility] INHALE 8-02 ity of 13:03: [place] [facility] traZODone Yes [id number] 50mg Take 1 U nivers 50 mg 8-02 tablet by ity of tablet 00:00: mouth at [place] 00 bedtime. Medical Branch SERTraline Yes [id number] 50mg Take 1 [facility] (ZOLOFT) 50 8-02 tablet by ity of mg tablet 00:00: mouth [place] 00 the Medical morning. Branch traZODone Yes [id number] 50mg Take 1 U nivers 50 mg 8-02 tablet by ity of tablet 00:00: mouth at [place] 00 bedtime. Medical Branch SERTraline Yes [id number] 50mg Take 1 [facility] (ZOLOFT) 50 8-02 tablet by ity of mg tablet 00:00: mouth [place] 00 the Medical morning. Branch traZODone 0 Yes [id number] 50mg Take 1 U nivers 50 mg 8-02 tablet by ity of tablet 00:00: mouth at [place] 00 bedtime. Medical Branch SERTraline Yes [id number] 50mg Take 1 [facility] (ZOLOFT) 50 8-02 tablet by ity of mg tablet 00:00: mouth [place] 00 the Medical morning. Branch traZODone 2021-0 Yes [id number] 50mg Take 1 U nivers 50 mg 8-02 tablet by ity of tablet 00:00: mouth at [place] 00 bedtime. Medical Branch SERTraline 2021-0 Yes 50mg Take 1 [facility] (ZOLOFT) 50 8-02 tablet by ity of mg tablet 00:00: mouth [place] 00 the Medical morning. Branch traZODone 2021-0 Yes [id number] 50mg Take 1 U nivers 50 mg 8-02 tablet by ity of tablet 00:00: mouth at [place] 00 bedtime. Medical Branch SERTraline 2021-0 Yes 50mg Take 1 [facility] (ZOLOFT) 50 8-02 tablet by ity of mg tablet 00:00: mouth [place] 00 the Medical morning. Branch traZODone 2021-0 Yes [id number] 50mg Take 1 U nivers 50 mg 8-02 tablet by ity of tablet 00:00: mouth at [place] 00 bedtime. Medical Branch SERTraline 2021-0 Yes 50mg Take 1 [facility] (ZOLOFT) 50 8-02 tablet by ity of mg tablet 00:00: mouth [place] 00 the Medical morning. Branch traZODone 2021-0 Yes [id number] 50mg Take 1 U nivers 50 mg 8-02 tablet by ity of tablet 00:00: mouth at [place] 00 bedtime. Medical Branch SERTraline 2021-0 Yes [id number] 50mg Take 1 [facility] (ZOLOFT) 50 8-02 tablet by ity of mg tablet 00:00: mouth [place] 00 the Medical morning. Branch traZODone 2021-0 Yes [id number] 50mg Take 1 U nivers 50 mg 8-02 tablet by ity of tablet 00:00: mouth at [place] 00 bedtime. Medical Branch SERTraline 2021-0 Yes [id number] 50mg Take 1 [facility] (ZOLOFT) 50 8-02 tablet by ity of mg tablet 00:00: mouth [place] 00 the Medical morning. Branch traZODone 2021-0 Yes [id number] 50mg Take 1 U nivers 50 mg 8-02 tablet by ity of tablet 00:00: mouth at [place] 00 bedtime. Medical Branch SERTraline Yes [id number] 50mg Take 1 [facility] (ZOLOFT) 50 8-02 tablet by ity of mg tablet 00:00: mouth [place] 00 the Medical morning. Branch traZODone Yes [id number] 50mg Take 1 U nivers 50 mg 8-02 tablet by ity of tablet 00:00: mouth at [place] 00 bedtime. Medical Branch SERTraline Yes [id number] 50mg Take 1 [facility] (ZOLOFT) 50 8-02 tablet by ity of mg tablet 00:00: mouth [place] 00 the Medical morning. Branch traZODone Yes [id number] 50mg Take 1 U nivers 50 mg 8-02 tablet by ity of tablet 00:00: mouth at [place] 00 bedtime. Medical Branch SERTraline Yes [id number] 50mg Take 1 [facility] (ZOLOFT) 50 8-02 tablet by ity of mg tablet 00:00: mouth in [facility] 00 the Medical morning. Branch traZODone 2021- No [id number] 50mg Take 1 [facility] 50 mg 8-02 10-18 tablet by ity of tablet 00:00: 00:00 mouth at [place] 00 :00 bedtime. Medical Branch SERTraline 2021- No [id number] 50mg Take 1 [facility] (ZOLOFT) 50 8-02 10-18 tablet by it y of mg tablet 00:00: 00:00 mouth in [place] 00 :00 the Medical morning. Branch traZODone 2021- No [id number] 50mg Take 1 [facility] 50 mg 8-02 10-18 tablet by ity of tablet 00:00: 00:00 mouth at [place] 00 :00 bedtime. Medical Branch SERTraline 2021- No [id number] 50mg Take 1 [facility] (ZOLOFT) 50 8-02 10-18 tablet by it y of mg tablet 00:00: 00:00 mouth in [place] 00 :00 the Medical morning. Branch traZODone 2021- No [id number] 50mg Take 1 [facility] 50 mg 8-02 10-18 tablet by ity of tablet 00:00: 00:00 mouth at [place] 00 :00 bedtime. Medical Branch SERTraline 2021- No [id number] 50mg Take 1 [facility] (ZOLOFT) 50 8- 10-18 tablet by it y of mg tablet 00:00: 00:00 mouth in [place] 00 :00 the Medical morning. Branch traZODone 2021- No [id number] 50mg Take 1 [facility] 50 mg 8- 10-18 tablet by ity of tablet 00:00: 00:00 mouth at [place] 00 :00 bedtime. Medical Branch SERTraline 2021- No [id number] 50mg Take 1 [facility] (ZOLOFT) 50 8- 10-18 tablet by it y of mg tablet 00:00: 00:00 mouth in [place] 00 :00 the Medical morning. Branch sulfamethox 2021- No [id number] 1{tbl} Take 1 [facility] azole-trime - 08-06 tablet by it y of thoprim 00:00: 04:59 mouth in [place] (BACTRIM 00 :00 the Medical DS) 800-160 morning Branc h mg per and 1 tablet tablet in the evening. Do all this for 3 days. ibuprofen 2021-0 Yes [id number] 600mg Take 1 [facility] 600 mg 7-15 tablet by ity of tablet 00:00: mouth [place] 00 every 6 Medical (six) Branch hours as needed for Pain (scale 4-6). ibuprofen 2021-0 Yes [id number] 600mg Take 1 [facility] 600 mg 7-15 tablet by ity of tablet 00:00: mouth [place] 00 every 6 Medical (six) Branch hours as needed for Pain (scale 4-6). ibuprofen 2021-0 Yes [id number] 600mg Take 1 [facility] 600 mg 7-15 tablet by ity of tablet 00:00: mouth [place] 00 every 6 Medical (six) Branch hours as needed for Pain (scale 4-6). ibuprofen 2021-0 Yes [id number] 600mg Take 1 [facility] 600 mg 7-15 tablet by ity of tablet 00:00: mouth [place] 00 every 6 Medical (six) Branch hours as needed for Pain (scale 4-6). ibuprofen 2021-0 Yes [id number] 600mg Take 1 [facility] 600 mg 7-15 tablet by ity of tablet 00:00: mouth [place] 00 every 6 Medical (six) Branch hours as needed for Pain (scale 4-6). ibuprofen 2022-0 Yes [id number] 600mg Take 1 [facility] 600 mg 7-15 tablet by ity of tablet 00:00: mouth [place] 00 every 6 Medical (six) Branch hours as needed for Pain (scale 4-6). ibuprofen 2022-0 Yes [id number] 600mg Take 1 [facility] 600 mg 7-15 tablet by ity of tablet 00:00: mouth [place] 00 every 6 Medical (six) Branch hours as needed for Pain (scale 4-6). ibuprofen 2022-0 Yes [id number] 600mg Take 1 [facility] 600 mg 7-15 tablet by ity of tablet 00:00: mouth [place] 00 every 6 Medical (six) Branch hours as needed for Pain (scale 4-6). ibuprofen 2022-0 Yes [id number] 600mg Take 1 [facility] 600 mg 7-15 tablet by ity of tablet 00:00: mouth [place] 00 every 6 Medical (six) Branch hours as needed for Pain (scale 4-6). ibuprofen 2022-0 Yes [id number] 600mg Take 1 [facility] 600 mg 7-15 tablet by ity of tablet 00:00: mouth [place] 00 every 6 Medical (six) Branch hours as needed for Pain (scale 4-6). ibuprofen 2022-0 Yes [id number] 600mg Take 1 [facility] 600 mg 7-15 tablet by ity of tablet 00:00: mouth [place] 00 every 6 Medical (six) Branch hours as needed for Pain (scale 4-6). ibuprofen 2022-0 2022- No [id number] 600mg Take 1 [facility] 600 mg 7-15 10-18 tablet by ity of tablet 00:00: 00:00 mouth [place] 00 :00 every 6 Medical (six) Branch hours as needed for Pain (scale 4-6). ibuprofen 2022-0 2022- No [id number] 600mg Take 1 [facility] 600 mg 7-15 10-18 tablet by ity of tablet 00:00: 00:00 mouth [place] 00 :00 every 6 Medical (six) Branch hours as needed for Pain (scale 4-6). ibuprofen 2022-0 2022- No [id number] 600mg Take 1 [facility] 600 mg 7-15 10-18 tablet by ity of tablet 00:00: 00:00 mouth [place] 00 :00 every 6 Medical (six) Branch hours as needed for Pain (scale 4-6). ibuprofen 2021- No [id number] 600mg Take 1 [facility] 600 mg 7-15 [...] Indication s: acute pain bromphenira 2021-0 Yes [id number] 5mL Take 5 mL [facility] mine-pseudo 7-09 by mouth 4 it y of ephedrine-D 00:00: (four) [place] (BROMFED 00 times Medical DM) 2-30-10 daily as Bran ch mg/5 mL needed for syrup Congestion /Allergies or Cough. naproxen 2021-0 Yes [id number] 500mg Take 1 [facility] 500 mg 7-09 tablet by ity of tablet 00:00: mouth [place] 00 every 8 Medical (eight) Branch hours as needed for Pain (scale 4-6). cyclobenzap 2021-0 Yes [id number] 10mg Take 1 [facility] rine 10 mg 7-09 tablet by ity of tablet 00:00: mouth at [place] 00 bedtime as Medical needed for Branch Muscle Spasms. bromphenira 2021-0 Yes [id number] 5mL Take 5 mL [facility] mine-pseudo 7-09 by mouth 4 it y of ephedrine-D 00:00: (four) [place] (BROMFED 00 times Medical DM) 2-30-10 daily as Bran ch mg/5 mL needed for syrup Congestion /Allergies or Cough. naproxen 2021-0 Yes [id number] 500mg Take 1 [facility] 500 mg 7-09 tablet by ity of tablet 00:00: mouth [place] 00 every 8 Medical (eight) Branch hours as needed for Pain (scale 4-6). cyclobenzap 2021-0 Yes [id number] 10mg Take 1 [facility] rine 10 mg 7-09 tablet by ity of tablet 00:00: mouth at [place] 00 bedtime as Medical needed for Branch Muscle Spasms. bromphenira 2021-0 Yes [id number] 5mL Take 5 mL [facility] mine-pseudo 7-09 by mouth 4 it y of ephedrine-D 00:00: (four) [place] (BROMFED 00 times Medical DM) 2-30-10 daily as Bran ch mg/5 mL needed for syrup Congestion /Allergies or Cough. naproxen 2021-0 Yes [id number] 500mg Take 1 [facility] 500 mg 7-09 tablet by ity of tablet 00:00: mouth [place] 00 every 8 Medical (eight) Branch hours as needed for Pain (scale 4-6). cyclobenzap 2021-0 Yes [id number] 10mg Take 1 [facility] rine 10 mg 7-09 tablet by ity of tablet 00:00: mouth at [place] 00 bedtime as Medical needed for Branch Muscle Spasms. bromphenira 2021-0 Yes [id number] 5mL Take 5 mL [facility] mine-pseudo 7-09 by mouth 4 it y of ephedrine-D 00:00: (four) [place] (BROMFED 00 times Medical DM) 2-30-10 daily as Bran ch mg/5 mL needed for syrup Congestion /Allergies or Cough. naproxen 2021-0 Yes [id number] 500mg Take 1 [facility] 500 mg 7-09 tablet by ity of tablet 00:00: mouth [place] 00 every 8 Medical (eight) Branch hours as needed for Pain (scale 4-6). cyclobenzap 2021-0 Yes [id number] 10mg Take 1 [facility] rine 10 mg 7-09 tablet by ity of tablet 00:00: mouth at [place] 00 bedtime as Medical needed for Branch Muscle Spasms. bromphenira 2-0 Yes [id number] 5mL Take 5 mL [facility] mine-pseudo 7-09 by mouth 4 it y of ephedrine-D 00:00: (four) [place] (BROMFED 00 times Medical DM) 2-30-10 daily as Bran ch mg/5 mL needed for syrup Congestion /Allergies or Cough. naproxen 2022-0 Yes [id number] 500mg Take 1 [facility] 500 mg 7-09 tablet by ity of tablet 00:00: mouth [place] 00 every 8 Medical (eight) Branch hours as needed for Pain (scale 4-6). cyclobenzap 2021-0 Yes [id number] 10mg Take 1 [facility] rine 10 mg 7-09 tablet by ity of tablet 00:00: mouth at [place] 00 bedtime as Medical needed for Branch Muscle Spasms. bromphenira 2021-0 Yes [id number] 5mL Take 5 mL [facility] mine-pseudo 7-09 by mouth 4 it y of ephedrine-D 00:00: (four) [place] (BROMFED 00 times Medical DM) 2-30-10 daily as Bran ch mg/5 mL needed for syrup Congestion /Allergies or Cough. naproxen 2021-0 Yes [id number] 500mg Take 1 [facility] 500 mg 7-09 tablet by ity of tablet 00:00: mouth [place] 00 every 8 Medical (eight) Branch hours as needed for Pain (scale 4-6). cyclobenzap 2021-0 Yes [id number] 10mg Take 1 [facility] rine 10 mg 7-09 tablet by ity of tablet 00:00: mouth at [place] 00 bedtime as Medical needed for Branch Muscle Spasms. bromphenira 2021-0 Yes [id number] 5mL Take 5 mL [facility] mine-pseudo 7-09 by mouth 4 it y of ephedrine-D 00:00: (four) [place] (BROMFED 00 times Medical DM) 2-30-10 daily as Bran ch mg/5 mL needed for syrup Congestion /Allergies or Cough. naproxen 2-0 Yes [id number] 500mg Take 1 [facility] 500 mg 7-09 tablet by ity of tablet 00:00: mouth [place] 00 every 8 Medical (eight) Branch hours as needed for Pain (scale 4-6). cyclobenzap 2022-0 Yes [id number] 10mg Take 1 [facility] rine 10 mg 7-09 tablet by ity of tablet 00:00: mouth at [place] 00 bedtime as Medical needed for Branch Muscle Spasms. bromphenira 2022-0 Yes [id number] 5mL Take 5 mL [facility] mine-pseudo 7-09 by mouth 4 it y of ephedrine-D 00:00: (four) [place] (BROMFED 00 times Medical DM) 2-30-10 daily as Bran ch mg/5 mL needed for syrup Congestion /Allergies or Cough. naproxen 2022-0 Yes [id number] 500mg Take 1 [facility] 500 mg 7-09 tablet by ity of tablet 00:00: mouth [place] 00 every 8 Medical (eight) Branch hours as needed for Pain (scale 4-6). cyclobenzap 2021-0 Yes [id number] 10mg Take 1 [facility] rine 10 mg 7-09 tablet by ity of tablet 00:00: mouth at [place] 00 bedtime as Medical needed for Branch Muscle Spasms. bromphenira 202-0 Yes [id number] 5mL Take 5 mL [facility] mine-pseudo 7-09 by mouth 4 it y of ephedrine-D 00:00: (four) [place] (BROMFED 00 times Medical DM) 2-30-10 daily as Bran ch mg/5 mL needed for syrup Congestion /Allergies or Cough. naproxen 2021-0 Yes [id number] 500mg Take 1 [facility] n[facility] 500 mg 7-09 tablet by ity of tablet 00:00: mouth [place] 00 every 8 Medical (eight) Branch hours as needed for Pain (scale 4-6). cyclobenzap 2021-0 Yes [id number] 10mg Take 1 [facility] rine 10 mg 7-09 tablet by ity of tablet 00:00: mouth at [place] 00 bedtime as Medical needed for Branch Muscle Spasms. bromphenira 2021-0 Yes [id number] 5mL Take 5 mL [facility] mine-pseudo 7-09 by mouth 4 it y of ephedrine-D 00:00: (four) [place] (BROMFED 00 times Medical DM) 2-30-10 daily as Bran ch mg/5 mL needed for syrup Congestion /Allergies or Cough. naproxen 2-0 Yes [id number] 500mg Take 1 [facility] n[facility] 500 mg 7-09 tablet by ity of tablet 00:00: mouth [place] 00 every 8 Medical (eight) Branch hours as needed for Pain (scale 4-6). cyclobenzap 2022-0 Yes [id number] 10mg Take 1 [facility] rine 10 mg 7-09 tablet by ity of tablet 00:00: mouth at [place] 00 bedtime as Medical needed for Branch Muscle Spasms. bromphenira 2022-0 Yes [id number] 5mL Take 5 mL [facility] mine-pseudo 7-09 by mouth 4 it y of ephedrine-D 00:00: (four) [place] (BROMFED 00 times Medical DM) 2-30-10 daily as Bran ch mg/5 mL needed for syrup Congestion /Allergies or Cough. naproxen 2021-0 Yes [id number] 500mg Take 1 [facility] n[facility] 500 mg 7-09 tablet by ity of tablet 00:00: mouth [place] 00 every 8 Medical (eight) Branch hours as needed for Pain (scale 4-6). cyclobenzap 2021-0 Yes [id number] 10mg Take 1 [facility] rine 10 mg 7-09 tablet by ity of tablet 00:00: mouth at [place] 00 bedtime as Medical needed for Branch Muscle Spasms. bromphenira 2021-0 Yes [id number] 5mL Take 5 mL [facility] mine-pseudo 7-09 by mouth 4 it y of ephedrine-D 00:00: (four) [place] (BROMFED 00 times Medical DM) 2-30-10 daily as Bran ch mg/5 mL needed for syrup Congestion /Allergies or Cough. bromphenira 2021-0 Yes [id number] 5mL Take 5 mL [facility] mine-pseudo 7-09 by mouth 4 it y of ephedrine-D 00:00: (four) [place] (BROMFED 00 times Medical DM) 2-30-10 daily as Bran ch mg/5 mL needed for syrup Congestion /Allergies or Cough. bromphenira 2021-0 Yes [id number] 5mL Take 5 mL [facility] mine-pseudo 7-09 by mouth 4 it y of ephedrine-D 00:00: (four) [place] (BROMFED 00 times Medical DM) 2-30-10 daily as Bran ch mg/5 mL needed for syrup Congestion /Allergies or Cough. bromphenira 2021-0 Yes [id number] 5mL Take 5 mL [facility] mine-pseudo 7-09 by mouth 4 it y of ephedrine-D 00:00: (four) [place] (BROMFED 00 times Medical DM) 2-30-10 daily as Bran ch mg/5 mL needed for syrup Congestion /Allergies or Cough. bromphenira 2021-0 Yes [id number] 5mL Take 5 mL [facility] mine-pseudo 7-09 by mouth 4 it y of ephedrine-D 00:00: (four) [place] (BROMFED 00 times Medical DM) 2-30-10 daily as Bran ch mg/5 mL needed for syrup Congestion /Allergies or Cough. bromphenira 2-0 Yes [id number] 5mL Take 5 mL [facility] mine-pseudo 7-09 by mouth 4 it y of ephedrine-D 00:00: (four) [place] (BROMFED 00 times Medical DM) 2-30-10 daily as Bran ch mg/5 mL needed for syrup Congestion /Allergies or Cough. bromphenira 2022-0 Yes [id number] 5mL Take 5 mL [facility] mine-pseudo 7-09 by mouth 4 it y of ephedrine-D 00:00: (four) [place] (BROMFED 00 times Medical DM) 2-30-10 daily as Bran ch mg/5 mL needed for syrup Congestion /Allergies or Cough. bromphenira 2021-0 Yes [id number] 5mL Take 5 mL [facility] mine-pseudo 7-09 by mouth 4 it y of ephedrine-D 00:00: (four) [place] (BROMFED 00 times Medical DM) 2-30-10 daily as Bran ch mg/5 mL needed for syrup Congestion /Allergies or Cough. bromphenira 2-0 Yes [id number] 5mL Take 5 mL [facility] mine-pseudo 7-09 by mouth 4 it y of ephedrine-D 00:00: (four) [place] (BROMFED 00 times Medical DM) 2-30-10 daily as Bran ch mg/5 mL needed for syrup Congestion /Allergies or Cough. bromphenira 2022-0 Yes [id number] 5mL Take 5 mL [facility] mine-pseudo 7-09 by mouth 4 it y of ephedrine-D 00:00: (four) [place] (BROMFED 00 times Medical DM) 2-30-10 daily as Bran ch mg/5 mL needed for syrup Congestion /Allergies or Cough. bromphenira 2022-0 Yes [id number] 5mL Take 5 mL [facility] mine-pseudo 7-09 by mouth 4 it y of ephedrine-D 00:00: (four) [place] (BROMFED 00 times Medical DM) 2-30-10 daily as Bran ch mg/5 mL needed for syrup Congestion /Allergies or Cough. bromphenira 2021-0 Yes [id number] 5mL Take 5 mL [facility] mine-pseudo 7-09 by mouth 4 it y of ephedrine-D 00:00: (four) [place] (BROMFED 00 times Medical DM) 2-30-10 daily as Bran ch mg/5 mL needed for syrup Congestion /Allergies or Cough. bromphenira 2021-0 Yes [id number] 5mL Take 5 mL [facility] mine-pseudo 7-09 by mouth 4 it y of ephedrine-D 00:00: (four) [place] (BROMFED 00 times Medical DM) 2-30-10 daily as Bran ch mg/5 mL needed for syrup Congestion /Allergies or Cough. bromphenira 2021-0 Yes [id number] 5mL Take 5 mL [facility] mine-pseudo 7-09 by mouth 4 it y of ephedrine-D 00:00: (four) [place] (BROMFED 00 times Medical DM) 2-30-10 daily as Bran ch mg/5 mL needed for syrup Congestion /Allergies or Cough. bromphenira 2021- No [id number] 5mL Take 5 mL [facility] mine-pseudo 7-09 11-12 by mouth 4 i ty of ephedrine-D 00:00: 00:00 (four) [place] (BROMFED 00 :00 times Medical DM) 2-30-10 daily as Bran ch mg/5 mL needed for syrup Congestion /Allergies or Cough. naproxen 2021- No [id number] 500mg Take 1 [facility] 500 mg 7-09 10-18 tablet by ity of tablet 00:00: 00:00 mouth [place] 00 :00 every 8 Medical (eight) Branch hours as needed for Pain (scale 4-6). cyclobenzap 2021-2021- No [id number] 10mg Take 1 [facility] rine 10 mg 7-09 10-18 tablet by ity of tablet 00:00: 00:00 mouth at [place] 00 :00 bedtime as Medical needed for Branch Muscle Spasms. naproxen 2021-2021- No [id number] 500mg Take 1 [facility] 500 mg 7-09 10-18 tablet by ity of tablet 00:00: 00:00 mouth [place] 00 :00 every 8 Medical (eight) Branch hours as needed for Pain (scale 4-6). cyclobenzap 2021- No [id number] 10mg Take 1 [facility] rine 10 mg 7- 10-18 tablet by ity of tablet 00:00: 00:00 mouth at [place] 00 :00 bedtime as Medical needed for Branch Muscle Spasms. naproxen 2021- No [id number] 500mg Take 1 [facility] 500 mg 7- 10-18 tablet by ity of tablet 00:00: 00:00 mouth [place] 00 :00 every 8 Medical (eight) Branch hours as needed for Pain (scale 4-6). cyclobenzap 2021- No [id number] 10mg Take 1 [facility] rine 10 mg 7- 10-18 tablet by ity of tablet 00:00: 00:00 mouth at [place] 00 :00 bedtime as Medical needed for Branch Muscle Spasms. naproxen 2021- No [id number] 500mg Take 1 [facility] 500 mg 7- 10-18 tablet by ity of tablet 00:00: 00:00 mouth [place] 00 :00 every 8 Medical (eight) Branch hours as needed for Pain (scale 4-6). cyclobenzap 2021- No [id number] 10mg Take 1 [facility] rine 10 mg 7- 10-18 tablet by ity of tablet 00:00: 00:00 mouth at [place] 00 :00 bedtime as Medical needed for Branch Muscle Spasms. ibuprofen Yes [id number] 605mg Take 30.25 [facility] 100 mg/5 mL 6-15 mL by ity of oral 00:00: mouth [place] suspension 00 every 6 Medica l (six) Branch hours as needed for Pain (scale 4-6) or Temp > 38.5 C. ibuprofen Yes [id number] 605mg Take 30.25 [facility] 100 mg/5 mL 6-15 mL by ity of oral 00:00: mouth [place] suspension 00 every 6 Medica l (six) Branch hours as needed for Pain (scale 4-6) or Temp > 38.5 C. ibuprofen Yes [id number] 605mg Take 30.25 [facility] 100 mg/5 mL 6-15 mL by ity of oral 00:00: mouth [place] suspension 00 every 6 Medica l (six) Branch hours as needed for Pain (scale 4-6) or Temp > 38.5 C. ibuprofen 2022-0 Yes [id number] 605mg Take 30.25 [facility] 100 mg/5 mL 6-15 mL by ity of oral 00:00: mouth [place] suspension 00 every 6 Medica l (six) Branch hours as needed for Pain (scale 4-6) or Temp > 38.5 C. ibuprofen 202-0 Yes [id number] 605mg Take 30.25 [facility] 100 mg/5 mL 6-15 mL by ity of oral 00:00: mouth [place] suspension 00 every 6 Medica l (six) Branch hours as needed for Pain (scale 4-6) or Temp > 38.5 C. ibuprofen 2021-0 Yes [id number] 605mg Take 30.25 [facility] 100 mg/5 mL 6-15 mL by ity of oral 00:00: mouth [place] suspension 00 every 6 Medica l (six) Branch hours as needed for Pain (scale 4-6) or Temp > 38.5 C. ibuprofen 2021-0 Yes [id number] 605mg Take 30.25 [facility] 100 mg/5 mL 6-15 mL by ity of oral 00:00: mouth [place] suspension 00 every 6 Medica l (six) Branch hours as needed for Pain (scale 4-6) or Temp > 38.5 C. ibuprofen 2021-0 Yes [id number] 605mg Take 30.25 [facility] 100 mg/5 mL 6-15 mL by ity of oral 00:00: mouth [place] suspension 00 every 6 Medica l (six) Branch hours as needed for Pain (scale 4-6) or Temp > 38.5 C. ibuprofen 2022-0 Yes [id number] 605mg Take 30.25 [facility] 100 mg/5 mL 6-15 mL by ity of oral 00:00: mouth [place] suspension 00 every 6 Medica l (six) Branch hours as needed for Pain (scale 4-6) or Temp > 38.5 C. ibuprofen 2022-0 Yes [id number] 605mg Take 30.25 [facility] 100 mg/5 mL 6-15 mL by ity of oral 00:00: mouth [place] suspension 00 every 6 Medica l (six) Branch hours as needed for Pain (scale 4-6) or Temp > 38.5 C. ibuprofen 0 Yes [id number] 605mg Take 30.25 [facility] 100 mg/5 mL 6-15 mL by ity of oral 00:00: mouth [place] suspension 00 every 6 Medica l (six) Branch hours as needed for Pain (scale 4-6) or Temp > 38.5 C. ibuprofen 0 2021- No [id number] 605mg Take 30.25 [facility] 100 mg/5 mL 6-15 10-18 mL by ity of oral 00:00: 00:00 mouth [place] suspension 00 :00 every 6 Medica l (six) Branch hours as needed for Pain (scale 4-6) or Temp > 38.5 C. ibuprofen 2021-0 2021- No [id number] 605mg Take 30.25 [facility] 100 mg/5 mL 6-15 10-18 mL by ity of oral 00:00: 00:00 mouth [place] suspension 00 :00 every 6 Medica l (six) Branch hours as needed for Pain (scale 4-6) or Temp > 38.5 C. ibuprofen 0 2021- No [id number] 605mg Take 30.25 [facility] 100 mg/5 mL 6-15 10-18 mL by ity of oral 00:00: 00:00 mouth [place] suspension 00 :00 every 6 Medica l (six) Branch hours as needed for Pain (scale 4-6) or Temp > 38.5 C. ibuprofen 2021- No [id number] 605mg Take 30.25 [facility] 100 mg/5 mL 6-15 10-18 mL by ity of oral 00:00: 00:00 mouth [place] suspension 00 :00 every 6 Medica l (six) Branch hours as needed for Pain (scale 4-6) or Temp > 38.5 C. acetaminoph 2021- No [id number] 608mg Take 19 mL [facility] en 160 [...] 60 mg 5-27 ity of capsule 00:00: [place] 00 Medical Branch DULoxetine 2022-0 Yes [facility] 60 mg 5-27 ity of capsule 00:00: [place] 00 Medical Branch DULoxetine 2-0 Yes [facility] 60 mg 5-27 ity of capsule 00:00: [place] 00 Medical Branch DULoxetine 2022-0 Yes [facility] 60 mg 5-27 ity of capsule 00:00: [place] [address] Medical Branch DULoxetine 2022-0 Yes [facility] 60 mg 5-27 ity of capsule 00:00: [place] [address] Medical Branch DULoxetine 2-0 Yes [facility] 60 mg 5-27 ity of capsule 00:00: [place] [address] Medical Branch DULoxetine 2-0 Yes [facility] 60 mg 5-27 ity of capsule 00:00: [place] [address] Medical Branch DULoxetine 2-0 Yes [facility] 60 mg 5-27 ity of capsule 00:00: [place] [address] Medical Branch DULoxetine 2-0 Yes [facility] 60 mg 5-27 ity of capsule 00:00: [place] [address] Medical Branch DULoxetine 2021-0 2- No Univer s 60 mg 5-27 10-18 ity of capsule 00:00: 00:00 [place] 00 :00 Medical Branch DULoxetine 2-0 2022- No Univer s 60 mg 5-27 10-18 ity of capsule 00:00: 00:00 [place] 00 :00 Medical Branch DULoxetine 2-0 2022- No Univer s 60 mg 5-27 10-18 ity of capsule 00:00: 00:00 [place] 00 :00 Medical Branch DULoxetine 2022-0 2022- No Univer s 60 mg 5-27 10-18 ity of capsule 00:00: 00:00 [place] 00 :00 Medical Branch traZODone 2-0 2022- No [facility] 50 mg 5-27 08-02 ity of tablet 00:00: 00:00 [place] 00 :00 Medical Branch mometasone 2021-0 Yes [id number] 1{spray Use 1 [facility] 50 5-19 } [place] in ity of mcg/actuati 00:00: each [place] on nasal 00 nostril 2 Medica l spray (two) Branch times daily. mometasone 2021-0 Yes [id number] 1{spray Use 1 [facility] 50 5-19 } [place] in ity of mcg/actuati 00:00: each [place] on nasal 00 nostril 2 Medica l spray (two) Branch times daily. mometasone 2021-0 Yes [id number] 1{spray Use 1 [facility] 50 5-19 } [place] in ity of mcg/actuati 00:00: each [place] on nasal 00 nostril 2 Medica l spray (two) Branch times daily. mometasone 2021-0 Yes [id number] 1{spray Use 1 [facility] 50 5-19 } [place] in ity of mcg/actuati 00:00: each [place] on nasal 00 nostril 2 Medica l spray (two) Branch times daily. mometasone 2021-0 Yes [id number] 1{spray Use 1 [facility] 50 5-19 } [place] in ity of mcg/actuati 00:00: each [place] on nasal 00 nostril 2 Medica l spray (two) Branch times daily. mometasone 2021-0 Yes [id number] 1{spray Use 1 [facility] 50 5-19 } [place] in ity of mcg/actuati 00:00: each [place] on nasal 00 nostril 2 Medica l spray (two) Branch times daily. mometasone 2021-0 Yes [id number] 1{spray Use 1 [facility] 50 5-19 } [place] in ity of mcg/actuati 00:00: each [place] on nasal 00 nostril 2 Medica l spray (two) Branch times daily. mometasone 2021-0 Yes [id number] 1{spray Use 1 [facility] 50 5-19 } [place] in ity of mcg/actuati 00:00: each [place] on nasal 00 nostril 2 Medica l spray (two) Branch times daily. mometasone 2021-0 Yes [id number] 1{spray Use 1 [facility] 50 5-19 } [place] in ity of mcg/actuati 00:00: each [place] on nasal 00 nostril 2 Medica l spray (two) Branch times daily. mometasone 2021-0 Yes [id number] 1{spray Use 1 [facility] 50 5-19 } [place] in ity of mcg/actuati 00:00: each [place] on nasal 00 nostril 2 Medica l spray (two) Branch times daily. mometasone 2021-0 Yes [id number] 1{spray Use 1 [facility] 50 5-19 } [place] in ity of mcg/actuati 00:00: each [place] on nasal 00 nostril 2 Medica l spray (two) Branch times daily. mometasone 2021- No [id number] 1{spray Use 1 [facility] 50 5-19 10-18 } [place] in ity of mcg/actuati 00:00: 00:00 each [place] on nasal 00 :00 nostril 2 Medica l spray (two) Branch times daily. mometasone 2021- No [id number] 1{spray Use 1 [facility] 50 5-19 10-18 } [place] in ity of mcg/actuati 00:00: 00:00 each [place] on nasal 00 :00 nostril 2 Medica l spray (two) Branch times daily. mometasone 2021- No [id number] 1{spray Use 1 [facility] 50 5-19 10-18 } [place] in ity of mcg/actuati 00:00: 00:00 each [place] on nasal 00 :00 nostril 2 Medica l spray (two) Branch times daily. mometasone 2021- No [id number] 1{spray Use 1 [facility] 50 5-19 10-18 } [place] in ity of mcg/actuati 00:00: 00:00 each [place] on nasal 00 :00 nostril 2 Medica l spray (two) Branch times daily. cetirizine Yes [id number] 10mg Take 1 U nivers (ZYRTEC) 10 5-16 tablet by ity of mg tablet 00:00: mouth [place] 00 daily. Medical Branch cetirizine Yes [id number] 10mg Take 1 U nivers (ZYRTEC) 10 5-16 tablet by ity of mg tablet 00:00: mouth [place] 00 daily. Medical Branch cetirizine Yes [id number] 10mg Take 1 U nivers (ZYRTEC) 10 5-16 tablet by ity of mg tablet 00:00: mouth [place] 00 daily. Medical Branch cetirizine Yes [id number] 10mg Take 1 U nivers (ZYRTEC) 10 5-16 tablet by ity of mg tablet 00:00: mouth [place] 00 daily. Medical Branch cetirizine Yes [id number] 10mg Take 1 U nivers (ZYRTEC) 10 5-16 tablet by ity of mg tablet 00:00: mouth [place] 00 daily. [facility] Branch cetirizine Yes [id number] 10mg Take 1 U nivers (ZYRTEC) 10 5-16 tablet by ity of mg tablet 00:00: mouth [place] 00 daily. [facility] Branch cetirizine Yes [id number] 10mg Take 1 U nivers (ZYRTEC) 10 5-16 tablet by ity of mg tablet 00:00: mouth [place] 00 daily. [facility] Branch cetirizine Yes [id number] 10mg Take 1 U nivers (ZYRTEC) 10 5-16 tablet by ity of mg tablet 00:00: mouth [place] 00 daily. [facility] Branch cetirizine Yes [id number] 10mg Take 1 U nivers (ZYRTEC) 10 5-16 tablet by ity of mg tablet 00:00: mouth [place] 00 daily. [facility] cetirizine Yes [id number] 10mg Take 1 U nivers (ZYRTEC) 10 5-16 tablet by ity of mg tablet 00:00: mouth [place] 00 daily. [facility] cetirizine Yes [id number] 10mg Take 1 U nivers (ZYRTEC) 10 5-16 tablet by ity of mg tablet 00:00: mouth [place] 00 daily. [facility] cetirizine 2021- No [id number] 10mg Take 1 [facility] (ZYRTEC) 10 5-16 10-18 tablet by it y of mg tablet 00:00: 00:00 mouth [place] 00 :00 daily. [facility] cetirizine 2021- No [id number] 10mg Take 1 [facility] (ZYRTEC) 10 5-16 10-18 tablet by it y of mg tablet 00:00: 00:00 mouth [place] 00 :00 daily. [facility] cetirizine 2021- No [id number] 10mg Take 1 [facility] (ZYRTEC) 10 5-16 10-18 tablet by it y of mg tablet 00:00: 00:00 mouth [place] 00 :00 daily. [facility] cetirizine 2021- No [id number] 10mg Take 1 Univers (ZYRTEC) 10 5-16 10-18 tablet by it y of mg tablet 00:00: 00:00 mouth [place] 00 :00 daily. [facility] DULoxetine 2022-0 Yes [facility] 30 mg 5-09 ity of capsule 00:00: [place] 00 [facility] gabapentin 2022-0 Yes [facility] 300 mg 5-09 ity of capsule 00:00: [place] 00 [facility] ondansetron 2022-0 Yes Univer s 4 mg tablet 5-09 ity of 00:00: [place] 00 [facility] DULoxetine 2022-0 Yes [facility] 30 mg 5-09 ity of capsule 00:00: [place] 00 [facility] gabapentin 2022-0 Yes [facility] 300 mg 5-09 ity of capsule 00:00: [place] 00 [facility] ondansetron 2022-0 Yes Univer s 4 mg tablet 5-09 ity of 00:00: [place] 00 [facility] DULoxetine 2022-0 Yes [facility] 30 mg 5-09 ity of capsule 00:00: [place] 00 [facility] gabapentin 2022-0 Yes [facility] 300 mg 5-09 ity of capsule 00:00: [place] 00 [facility] ondansetron 2022-0 Yes Univer s 4 mg tablet 5-09 ity of 00:00: [place] 00 [facility] DULoxetine 2022-0 Yes [facility] 30 mg 5-09 ity of capsule 00:00: [place] 00 [facility] gabapentin 2022-0 Yes [facility] 300 mg 5-09 ity of capsule 00:00: [place] 00 [facility] ondansetron 2022-0 Yes Univer s 4 mg tablet 5-09 ity of 00:00: [place] 00 [facility] DULoxetine 2022-0 Yes [facility] 30 mg 5-09 ity of capsule 00:00: [place] 00 [facility] gabapentin 2022-0 Yes [facility] 300 mg 5-09 ity of capsule 00:00: [place] 00 [facility] ondansetron 2022-0 Yes Univer s 4 mg tablet 5-09 ity of 00:00: [place] 00 [facility] DULoxetine 2022-0 Yes [facility] 30 mg 5-09 ity of capsule 00:00: [place] [id number] [facility] Branch gabapentin 2022-0 Yes [facility] 300 mg 5-09 ity of capsule 00:00: [place] 00 [facility] ondansetron 2022-0 Yes Univer s 4 mg tablet 5-09 ity of 00:00: [place] 00 [facility] DULoxetine 2022-0 Yes [facility] 30 mg 5-09 ity of capsule 00:00: [place] 00 [facility] gabapentin 2022-0 Yes [facility] 300 mg 5-09 ity of capsule 00:00: [place] 00 [facility] ondansetron 2022-0 Yes Univer s 4 mg tablet 5-09 ity of 00:00: [place] [id number] Medical Branch DULoxetine 2022-0 Yes [facility] 30 mg 5-09 ity of capsule 00:00: [place] 00 [facility] gabapentin 2022-0 Yes [facility] 300 mg 5-09 ity of capsule 00:00: [place] [address] Medical Branch ondansetron 2022-0 Yes Univer s 4 mg tablet 5-09 ity of 00:00: [place] [address] [facility] Branch DULoxetine 2022-0 Yes [facility] 30 mg 5-09 ity of capsule 00:00: [place] [address] [facility] Branch gabapentin 2022-0 Yes [facility] 300 mg 5-09 ity of capsule 00:00: [place] [address] [facility] Branch ondansetron 2022-0 Yes Univer s 4 mg tablet 5-09 ity of 00:00: [place] [address] [facility] Branch DULoxetine 2022-0 Yes [facility] 30 mg 5-09 ity of capsule 00:00: [place] [address] [facility] Branch gabapentin 2022-0 Yes [facility] 300 mg 5-09 ity of capsule 00:00: [place] 00 [facility] ondansetron 2022-0 Yes Univer s 4 mg tablet 5-09 ity of 00:00: [place] [address] Medical Branch DULoxetine 2022-0 Yes [facility] 30 mg 5-09 ity of capsule 00:00: [place] [address] [facility] Branch gabapentin 2022-0 Yes [facility] 300 mg 5-09 ity of capsule 00:00: [place] 00 [facility] Branch ondansetron 2022-0 Yes Univer s 4 mg tablet 5-09 ity of 00:00: [place] [address] Medical Branch DULoxetine 2022-0 2022- No Univer s 30 mg 5-01 20- ity of capsule 00:00: 00:00 [place] 00 :00 Medical Branch gabapentin 2022-0 2022- No Univer s 300 mg -02-27 ity of capsule 00:00: 00:00 [place] 00 :00 Medical Branch ondansetron 2022-0 2022- No Unive rs 4 mg tablet [id number] ity of 00:00: 00:00 [place] 00 :00 Medical Branch DULoxetine 2022-0 2- No Univer s 30 mg 09-18 ity of capsule 00:00: 00:00 [place] 00 :00 Medical Branch gabapentin 2022-0 2022- No Univer s 300 mg 09-18 ity of capsule 00:00: 00:00 [place] 00 :00 Medical Branch ondansetron 2022-0 2022- No Unive rs 4 mg tablet 09-18 ity of 00:00: 00:00 [place] 00 :00 Medical Branch DULoxetine 2022-0 2- No Univer s 30 mg 09-18 ity of capsule 00:00: 00:00 [place] 00 :00 Medical Branch gabapentin 2022-0 2- No Univer s 300 mg 09-18 ity of capsule 00:00: 00:00 [place] 00 :00 Medical Branch ondansetron 2022-0 2- No Unive rs 4 mg tablet 09-18 ity of 00:00: 00:00 [place] 00 :00 Medical Branch DULoxetine 2022-0 2- No Univer s 30 mg 09-18 ity of capsule 00:00: 00:00 [place] 00 :00 Medical Branch gabapentin 2022-0 2- No Univer s 300 mg 09-18 ity of capsule 00:00: 00:00 [place] 00 :00 Medical Branch ondansetron 2022-0 2- No Unive rs 4 mg tablet 09-18 ity of 00:00: 00:00 [place] 00 :00 Medical Branch amLODIPine 2022-0 Yes Univers 5 mg tablet 4-22 ity of 00:00: [place] 00 [facility] amLODIPine 2022-0 Yes 5mg Take 5 mg Un sushant 5 mg tablet 4-22 by mouth. ity of 00:00: [place] 00 [facility] amLODIPine 2022-0 Yes Univers 5 mg tablet 4-22 ity of 00:00: [place] 00 [facility] amLODIPine 2022-0 Yes 5mg Take 5 mg Un sushant 5 mg tablet 4-22 by mouth. ity of 00:00: [place] 00 [facility] amLODIPine 2022-0 Yes Univers 5 mg tablet 4-22 ity of 00:00: [place] [address] [facility] Branch amLODIPine 2022-0 Yes 5mg Take 5 mg Un sushant 5 mg tablet 4-22 by mouth. ity of 00:00: [place] [facility] amLODIPine 2022-0 Yes [facility] 5 mg tablet 4-22 ity of 00:00: [place] [facility] amLODIPine 2022-0 Yes 5mg Take 5 mg Un ssuhant 5 mg tablet 4-22 by mouth. ity of 00:00: [place] [facility] amLODIPine 2022-0 Yes [facility] 5 mg tablet 4-22 ity of 00:00: [place] [facility] amLODIPine 2022-0 Yes 5mg Take 5 mg Un sushant 5 mg tablet 4-22 by mouth. ity of 00:00: [place] [facility] amLODIPine 2022-0 Yes Univers 5 mg tablet 4-22 ity of 00:00: [place] [facility] amLODIPine 2022-0 Yes 5mg Take 5 mg Un sushant 5 mg tablet 4-22 by mouth. ity of 00:00: [place] [facility] amLODIPine 2022-0 Yes [facility] 5 mg tablet 4-22 ity of 00:00: [place] [facility] amLODIPine 2022-0 Yes 5mg Take 5 mg Un sushant 5 mg tablet 4-22 by mouth. ity of 00:00: [place] [facility] amLODIPine 2022-0 Yes Univers 5 mg tablet 4-22 ity of 00:00: [place] [facility] amLODIPine 2022-0 Yes 5mg Take 5 mg Un sushant 5 mg tablet 4-22 by mouth. ity of 00:00: [place] [facility] amLODIPine 2022-0 Yes Univers 5 mg tablet 4-22 ity of 00:00: [place] [facility] amLODIPine 2022-0 Yes 5mg Take 5 mg Un sushant 5 mg tablet 4-22 by mouth. ity of 00:00: [place] [facility] amLODIPine 2022-0 Yes Univers 5 mg tablet 4-22 ity of 00:00: [place] [facility] amLODIPine 2022-0 Yes 5mg Take 5 mg Un sushant 5 mg tablet 4-22 by mouth. ity of 00:00: [place] [facility] amLODIPine 2022-0 Yes Univers 5 mg tablet 4-22 ity of 00:00: [place] [facility] amLODIPine 2022-0 Yes 5mg Take 5 mg Un sushant 5 mg tablet 4-22 by mouth. ity of 00:00: [place] 00 [facility] Branch amLODIPine 2022-0 2022- No Univer s 5 mg tablet 09-0118 ity of 00:00: 00:00 [place] 00 :00 Medical Branch amLODIPine 2022-0 2022- No 5mg Take 5 mg U nivers 5 mg tablet 09-0118 by mouth. it y of 00:00: 00:00 [place] 00 :00 Medical Branch amLODIPine 2022-0 2022- No Univer s 5 mg tablet 09-0118 ity of 00:00: 00:00 [place] 00 :00 Medical Branch amLODIPine 2022-0 2022- No 5mg Take 5 mg U nivers 5 mg tablet 09-01 by mouth. it y of 00:00: 00:00 [place] 00 :00 Medical Branch amLODIPine 2022-0 2022- No Univer s 5 mg tablet 09-01 ity of 00:00: 00:00 [place] 00 :00 Medical Branch amLODIPine 2022-0 2022- No 5mg Take 5 mg U nivers 5 mg tablet 09-01 by mouth. it y of 00:00: 00:00 [place] 00 :00 Medical Branch amLODIPine 2022-0 2022- No Univer s 5 mg tablet 09-01 ity of 00:00: 00:00 [place] 00 :00 Medical Branch amLODIPine 2022-0 2022- No 5mg Take 5 mg U nivers 5 mg tablet 09-0118 by mouth. it y of 00:00: 00:00 [place] 00 :00 Medical Branch buPROPion 2-0 Yes [...] ity of 24 hr 00:00: [place] tablet [facility] buPROPion 2022- No 150mg Take 150 Un sushant XL 150 mg 4-20 04-21 mg by ity of 24 hr 00:00: 04:59 mouth. [place] tablet 00 :00 [facility] buPROPion 2022- No 150mg Take 150 Un sushant XL 150 mg 4-20 04-21 mg by ity of 24 hr 00:00: 04:59 mouth. [place] tablet 00 :00 [facility] buPROPion 2022- No 150mg Take 150 Un sushant XL 150 mg 4-20 04-21 mg by ity of 24 hr 00:00: 04:59 mouth. [place] tablet 00 :00 [facility] buPROPion 2022- No 150mg Take 150 Un sushant XL 150 mg 4-20 04-21 mg by ity of 24 hr 00:00: 04:59 mouth. [place] tablet 00 :00 Medical Branch buPROPion 2022- No 150mg Take 150 Un sushant XL 150 mg 4-20 04-21 mg by ity of 24 hr 00:00: 04:59 mouth. [place] tablet 00 :00 [facility] buPROPion 2022- No 150mg Take 150 Un sushant XL 150 mg 4-20 04-21 mg by ity of 24 hr 00:00: 04:59 mouth. [place] tablet 00 :00 [facility] buPROPion 2022- No 150mg [...] by ity o f 00:00: mouth 2 [place] 00 (two) Medical times Branch daily. carvediloL 2020-2021- No 25mg Take 1 Univ ers 25 mg 2-30 10-18 tablet by ity of tablet 00:00: 00:00 mouth 2 [place] 00 :00 (two) Medical times Branch daily with meals. losartan 50 2020-05- No 50mg Take 1 Uni vers mg tablet 2-30 10-18 tablet by ity of 00:00: 00:00 mouth 2 [place] 00 :00 (two) Medical times Branch daily. carvediloL 2020-05- No 25mg Take 1 Univ ers 25 mg 2-30 10-18 tablet by ity of tablet 00:00: 00:00 mouth 2 [place] 00 :00 (two) Medical times Branch daily with meals. losartan 50 2020-05- No 50mg Take 1 Uni vers mg tablet 2-30 10-18 tablet by ity of 00:00: 00:00 mouth 2 [place] 00 :00 (two) Medical times Branch daily. carvediloL 2020-05- No 25mg Take 1 Univ ers 25 mg 2-30 10-18 tablet by ity of tablet 00:00: 00:00 mouth 2 [place] 00 :00 (two) Medical times Branch daily with meals. losartan 50 2020-05- No 50mg Take 1 Uni vers mg tablet 2-30 10-18 tablet by ity of 00:00: 00:00 mouth 2 [place] 00 :00 (two) Medical times Branch daily. carvediloL 2020-05- No 25mg Take 1 Univ ers 25 mg 2-30 10-18 tablet by ity of tablet 00:00: 00:00 mouth 2 [place] 00 :00 (two) Medical times Branch daily with meals. losartan 50 2020-05- No 50mg Take 1 Uni vers mg tablet 2-30 10-18 tablet by ity of 00:00: 00:00 mouth 2 [place] 00 :00 (two) Medical times Branch daily. Immunizations Ordered Filled Immunization Date Status Comments [facility] e Immunization Name Name Influenza Virus 2022-02-27 Completed Universit y of Vaccine Quad IM, 00:00:00 [place] Me dical Preserv and ABX Branch Free [...] [facility] 6+ MO Branch Influenza Virus 2022-02-21 Completed Universit y of Vaccine Quad .5 mL 00:00:00 [facility] 6+ MO Branch Influenza Virus 2022-02-21 Completed Universit y of Vaccine Quad .5 mL 00:00:00 [facility] 6+ MO Branch Influenza Virus 2021-06-11 Completed Universit y of Vaccine 00:00:00 [facility] Influenza Virus 2021-06-11 Completed Universit y of Vaccine 00:00:00 [facility] Influenza Virus 2021-06-11 Completed Universit y of Vaccine 00:00:00 [facility] Influenza Virus 2021-06-11 Completed Universit y of Vaccine 00:00:00 [facility] Influenza Virus 2021-06-11 Completed Universit y of Vaccine 00:00:00 [facility] Influenza Virus 2021-06-11 Completed Universit y of Vaccine 00:00:00 [facility] Influenza Virus 2021-06-11 Completed Universit y of Vaccine 00:00:00 [facility] Influenza Virus 2021-06-11 Completed Universit y of Vaccine 00:00:00 [facility] Influenza Virus 2021-06-11 Completed Universit y of Vaccine 00:00:00 [facility] Influenza Virus 2021-06-11 Completed Universit y of Vaccine 00:00:00 [facility] Influenza Virus 2021-06-11 Completed Universit y of Vaccine 00:00:00 [facility] Influenza Virus 2021-06-11 Completed Universit y of Vaccine 00:00:00 [facility] Influenza Virus 2021-06-11 Completed Universit y of Vaccine 00:00:00 [facility] Influenza Virus 2021-06-11 Completed Universit y of Vaccine 00:00:00 [facility] Influenza Virus 2021-06-11 Completed Universit y of Vaccine 00:00:00 [facility] Influenza Virus 2021-06-11 Completed Universit y of Vaccine 00:00:00 [facility] Influenza Virus 2021-06-11 Completed Universit y of Vaccine 00:00:00 [facility] Influenza Virus 2021-06-11 Completed Universit y of Vaccine 00:00:00 [facility] Influenza Virus 2021-06-11 Completed Universit y of Vaccine 00:00:00 [facility] Influenza Virus 2021-06-11 Completed Universit y of Vaccine 00:00:00 [facility] Influenza Virus 2021-06-11 Completed Universit y of Vaccine 00:00:00 [facility] Influenza Virus 2021-06-11 Completed Universit y of Vaccine 00:00:00 [facility] Influenza Virus 2021-06-11 Completed Universit y of Vaccine 00:00:00 [facility] Influenza Virus 2021-06-11 Completed Universit y of Vaccine 00:00:00 [facility] Influenza Virus 2021-06-11 Completed Universit y of Vaccine 00:00:00 [facility] Influenza Virus 2021-06-11 Completed Universit y of Vaccine 00:00:00 [facility] Influenza Virus 2021-06-11 Completed Universit y of Vaccine 00:00:00 [facility] Influenza Virus 2021-06-11 Completed Universit y of Vaccine 00:00:00 [facility] Influenza Virus 2021-06-11 Completed Universit y of Vaccine 00:00:00 [facility] Influenza Virus 2021-06-11 Completed Universit y of Vaccine 00:00:00 [facility] Influenza Virus 2021-06-11 Completed Universit y of Vaccine 00:00:00 [facility] Influenza Virus 2021-06-11 Completed Universit y of Vaccine 00:00:00 [facility] Influenza Virus 2021-06-11 Completed Universit y of Vaccine 00:00:00 [facility] Influenza Virus 2021-06-11 Completed Universit y of Vaccine 00:00:00 [facility] Influenza Virus 2021-06-11 Completed Universit y of Vaccine 00:00:00 [facility] Influenza Virus 2021-06-11 Completed Universit y of Vaccine 00:00:00 [facility] Influenza Virus 2021-06-11 Completed Universit y of Vaccine 00:00:00 [facility] Influenza Virus 2021-06-11 Completed Universit y of Vaccine 00:00:00 [facility] Influenza Virus 2021-06-11 Completed Universit y of Vaccine 00:00:00 [facility] Influenza Virus 2021-06-11 Completed Universit y of Vaccine 00:00:00 [facility] Influenza Virus 2021-06-11 Completed Universit y of Vaccine 00:00:00 [facility] Influenza Virus 2021-06-11 Completed Universit y of Vaccine 00:00:00 [facility] Influenza Virus 2021-06-11 Completed Universit y of Vaccine 00:00:00 [facility] Influenza Virus 2021-06-11 Completed Universit y of Vaccine 00:00:00 [facility] Influenza Virus 2021-06-11 Completed Universit y of Vaccine 00:00:00 [facility] Influenza Virus 2021-06-11 Completed Universit y of Vaccine 00:00:00 [facility] Influenza Virus 2021-06-11 Completed Universit y of Vaccine 00:00:00 [facility] Influenza Virus 2021-06-11 Completed Universit y of Vaccine 00:00:00 [facility] Influenza Virus 2021-06-11 Completed Universit y of Vaccine Quad .5 mL 00:00:00 [facility] 6+ MO Branch Influenza Virus 2021-06-11 Completed Universit y of Vaccine 00:00:00 [facility] Influenza Virus 2021-06-11 Completed Universit y of Vaccine Quad .5 mL 00:00:00 [facility] 6+ MO Branch Influenza Virus 2021-06-11 Completed Universit y of Vaccine 00:00:00 [facility] Influenza Virus 2021-06-11 Completed Universit y of Vaccine Quad .5 mL 00:00:00 [facility] 6+ MO Branch Influenza Virus 2021-06-11 Completed Universit y of Vaccine 00:00:00 [facility] Influenza Virus 2021-06-11 Completed Universit y of Vaccine Quad .5 mL 00:00:00 [facility] 6+ MO Branch Influenza Virus 2021-06-11 Completed Universit y of Vaccine 00:00:00 [facility] Influenza Virus 2021-06-11 Completed Universit y of Vaccine Quad .5 mL 00:00:00 [facility] 6+ MO Branch Influenza Virus 2021-06-11 Completed Universit y of Vaccine 00:00:00 [facility] Influenza Virus 2021-06-11 Completed Universit y of Vaccine Quad .5 mL 00:00:00 [place] [facility] 6+ MO Branch Influenza Virus 2021-06-11 Completed Universit y of Vaccine 00:00:00 [facility] Influenza Virus 2021-06-11 Completed Universit y of Vaccine Quad .5 mL 00:00:00 [place] [facility] IM 6+ MO Branch Influenza Virus 2021-06-11 Completed Universit y of Vaccine 00:00:00 [facility] Influenza Virus 2021-06-11 Completed Universit y of Vaccine Quad .5 mL 00:00:00 [facility] 6+ MO Branch Influenza Virus 2021-06-11 Completed Universit y of Vaccine 00:00:00 [facility] Influenza Virus 2021-06-11 Completed Universit y of Vaccine Quad .5 mL 00:00:00 [facility] 6+ MO Branch Influenza Virus 2021-06-11 Completed Universit y of Vaccine 00:00:00 [facility] Influenza Virus 2021-06-11 Completed Universit y of Vaccine Quad .5 mL 00:00:00 [facility] 6+ MO Branch Influenza Virus 2021-06-11 Completed Universit y of Vaccine 00:00:00 [facility] Influenza Virus 2021-06-11 Completed Universit y of Vaccine Quad .5 mL 00:00:00 [facility] 6+ MO Branch Influenza Virus 2020-05-19 Completed Universit y of Vaccine 00:00:00 [facility] Influenza Virus 2020-05-19 Completed Universit y of Vaccine 00:00:00 [facility] Influenza Virus 2020-05-19 Completed Universit y of Vaccine 00:00:00 [facility] Influenza Virus 2020-05-19 Completed Universit y of Vaccine 00:00:00 [facility] Influenza Virus 2020-05-19 Completed Universit y of Vaccine 00:00:00 [facility] Influenza Virus 2020-05-19 Completed Universit y of Vaccine 00:00:00 [facility] Influenza Virus 2020-05-19 Completed Universit y of Vaccine 00:00:00 [facility] Influenza Virus 2020-05-19 Completed Universit y of Vaccine 00:00:00 [facility] Influenza Virus 2020-05-19 Completed Universit y of Vaccine 00:00:00 [facility] Influenza Virus 2020-05-19 Completed Universit y of Vaccine 00:00:00 [facility] Influenza Virus 2020-05-19 Completed Universit y of Vaccine 00:00:00 [facility] Influenza Virus 2020-05-19 Completed Universit y of Vaccine 00:00:00 [facility] Influenza Virus 2020-05-19 Completed Universit y of Vaccine 00:00:00 [facility] Influenza Virus 2020-05-19 Completed Universit y of Vaccine 00:00:00 [facility] Influenza Virus 2020-05-19 Completed Universit y of Vaccine 00:00:00 [facility] Influenza Virus 2020-05-19 Completed Universit y of Vaccine 00:00:00 [facility] Influenza Virus 2020-05-19 Completed Universit y of Vaccine 00:00:00 [facility] Influenza Virus 2020-05-19 Completed Universit y of Vaccine 00:00:00 [facility] Influenza Virus 2020-05-19 Completed Universit y of Vaccine 00:00:00 [facility] Influenza Virus 2020-05-19 Completed Universit y of Vaccine 00:00:00 [facility] Influenza Virus 2020-05-19 Completed Universit y of Vaccine 00:00:00 [facility] Influenza Virus 2020-05-19 Completed Universit y of Vaccine 00:00:00 [facility] Influenza Virus 2020-05-19 Completed Universit y of Vaccine 00:00:00 [facility] Influenza Virus 2020-05-19 Completed Universit y of Vaccine 00:00:00 [facility] Influenza Virus 2020-05-19 Completed Universit y of Vaccine 00:00:00 [facility] Influenza Virus 2020-05-19 Completed Universit y of Vaccine 00:00:00 [facility] Influenza Virus 2020-05-19 Completed Universit y of Vaccine 00:00:00 [facility] Influenza Virus 2020-05-19 Completed Universit y of Vaccine 00:00:00 [facility] Influenza Virus 2020-05-19 Completed Universit y of Vaccine 00:00:00 [facility] Influenza Virus 2020-05-19 Completed Universit y of Vaccine 00:00:00 [facility] Influenza Virus 2020-05-19 Completed Universit y of Vaccine 00:00:00 [facility] Influenza Virus 2020-05-19 Completed Universit y of Vaccine 00:00:00 [facility] Influenza Virus 2020-05-19 Completed Universit y of Vaccine 00:00:00 [facility] Influenza Virus 2020-05-19 Completed Universit y of Vaccine 00:00:00 [place] [facility] Influenza Virus 2020-05-19 Completed Universit y of Vaccine 00:00:00 [facility] Influenza Virus 2020-05-19 Completed Universit y of Vaccine 00:00:00 [facility] Influenza Virus 2020-05-19 Completed Universit y of Vaccine 00:00:00 [facility] Influenza Virus 2020-05-19 Completed Universit y of Vaccine 00:00:00 [facility] Influenza Virus 2020-05-19 Completed Universit y of Vaccine 00:00:00 [facility] Influenza Virus 2020-05-19 Completed Universit y of Vaccine 00:00:00 [facility] Influenza Virus 2020-05-19 Completed Universit y of Vaccine 00:00:00 [facility] Influenza Virus 2020-05-19 Completed Universit y of Vaccine 00:00:00 [facility] Influenza Virus 2020-05-19 Completed [facility] of Vaccine 00:00:00 [facility] Influenza Virus 2020-05-19 Completed [facility] of Vaccine 00:00:00 [facility] Influenza Virus 2020-05-19 Completed [facility] of Vaccine 00:00:00 [facility] Influenza Virus 2020-05-19 Completed [facility] of Vaccine 00:00:00 [facility] Influenza Virus 2020-05-19 Completed [facility] y of Vaccine 00:00:00 [facility] Influenza Virus 2020-05-19 Completed [facility] y of Vaccine 00:00:00 [facility] Influenza Virus 2020-05-19 Completed [facility] y of Vaccine 00:00:00 [facility] Influenza Virus 2020-05-19 Completed [facility] y of Vaccine 00:00:00 [facility] Influenza Virus 2020-05-19 Completed [facility] y of Vaccine 00:00:00 [facility] Influenza Virus 2020-05-19 Completed [facility] y of Vaccine 00:00:00 [facility] Influenza Virus 2020-05-19 Completed [facility] y of Vaccine 00:00:00 [facility] Influenza Virus 2020-05-19 Completed [facility] y of Vaccine 00:00:00 [facility] Influenza Virus 2020-05-19 Completed [facility] y of Vaccine 00:00:00 [facility] Influenza Virus 2020-05-19 Completed [facility] y of Vaccine 00:00:00 [facility] Influenza Virus 2020-05-19 Completed [facility] y of Vaccine 00:00:00 [facility] Influenza Virus 2020-05-19 Completed [facility]it y of Vaccine 00:00:00 [facility] Influenza Virus 2020-05-16 Completed [facility]it y of Vaccine Recomb Quad 00:00:00 [facility] IM, Preserv and ABX Branc [...] (ADACEL) 2019-05-21 Completed University of VACCINE 00:00:00 [facility] TDAP (ADACEL) 2019-05-21 Completed [facility] of VACCINE 00:00:00 [facility] TDAP (ADACEL) 2019-05-21 Completed [facility] of VACCINE 00:00:00 [facility] TDAP (ADACEL) 2019-05-21 Completed [facility] of VACCINE 00:00:00 [facility] TDAP (ADACEL) 2019-05-21 Completed [facility] of VACCINE 00:00:00 [facility] TDAP (ADACEL) 2019-05-21 Completed University of VACCINE 00:00:00 [facility] TDAP (ADACEL) 2019-05-21 Completed [facility] of VACCINE 00:00:00 [facility] TDAP (ADACEL) 2019-05-21 Completed University of VACCINE 00:00:00 [facility] TDAP (ADACEL) 2019-05-21 Completed University of VACCINE 00:00:00 [facility] TDAP (ADACEL) 2019-05-21 Completed [facility] of VACCINE 00:00:00 [facility] TDAP (ADACEL) 2019-05-21 Completed [facility] of VACCINE 00:00:00 [facility] TDAP (ADACEL) 2019-05-21 Completed [facility] of VACCINE 00:00:00 [facility] TDAP (ADACEL) 2019-05-21 Completed University of VACCINE 00:00:00 [facility] TDAP (ADACEL) 2019-05-21 Completed [facility] of VACCINE 00:00:00 [facility] TDAP (ADACEL) 2019-05-21 Completed [facility] VACCINE 00:00:00 [facility] TDAP (ADACEL) 2019-05-21 Completed [facility] of VACCINE 00:00:00 [facility] TDAP (ADACEL) 2019-05-21 Completed [facility] of VACCINE 00:00:00 [facility] TDAP (ADACEL) 2019-05-21 Completed [facility] of VACCINE 00:00:00 [facility] TDAP (ADACEL) 2019-05-21 Completed [facility] of VACCINE 00:00:00 [facility] TDAP (ADACEL) 2019-05-21 Completed [facility] of VACCINE 00:00:00 [facility] TDAP (ADACEL) 2019-05-21 Completed [facility] of VACCINE 00:00:00 [facility] TDAP (ADACEL) 2019-05-21 Completed [facility] of VACCINE 00:00:00 [facility] TDAP (ADACEL) 2019-05-21 Completed [facility] of VACCINE 00:00:00 [facility] TDAP (ADACEL) 2019-05-21 Completed [facility] of VACCINE 00:00:00 [facility] TDAP (ADACEL) 2019-05-21 Completed [facility] of VACCINE 00:00:00 [facility] TDAP (ADACEL) 2019-05-21 Completed [facility] of VACCINE 00:00:00 [facility] TDAP (ADACEL) 2019-05-21 Completed [facility] of VACCINE 00:00:00 [facility] TDAP (ADACEL) 2019-05-21 Completed [facility] of VACCINE 00:00:00 [facility] TDAP (ADACEL) 2019-05-21 Completed [facility] of VACCINE 00:00:00 [facility] TDAP (ADACEL) 2019-05-21 Completed [facility] of VACCINE 00:00:00 [facility] TDAP (ADACEL) 2019-05-21 Completed [facility] of VACCINE 00:00:00 [facility] TDAP (ADACEL) 2019-05-21 Completed [facility] of VACCINE 00:00:00 [facility] TDAP (ADACEL) 2019-05-21 Completed [facility] of VACCINE 00:00:00 [facility] TDAP (ADACEL) 2019-05-21 Completed [facility] of VACCINE 00:00:00 [facility] TDAP (ADACEL) 2019-05-21 Completed [facility] of VACCINE 00:00:00 [facility] TDAP (ADACEL) 2019-05-21 Completed [facility] of VACCINE 00:00:00 [facility] TDAP (ADACEL) 2019-05-21 Completed [facility] of VACCINE 00:00:00 [facility] TDAP (ADACEL) 2019-05-21 Completed [facility] of VACCINE 00:00:00 [facility] TDAP (ADACEL) 2019-05-21 Completed [facility] of VACCINE 00:00:00 [facility] TDAP (ADACEL) 2019-05-21 Completed [facility] of VACCINE 00:00:00 [facility] TDAP (ADACEL) 2019-05-21 Completed [facility] of VACCINE 00:00:00 [facility] TDAP (ADACEL) 2019-05-21 Completed [facility] of VACCINE 00:00:00 [facility] TDAP (ADACEL) 2019-05-21 Completed [facility] of VACCINE 00:00:00 [facility] TDAP (ADACEL) 2019-05-21 Completed [facility] of VACCINE 00:00:00 [facility] TDAP (ADACEL) 2019-05-21 Completed [facility] of VACCINE 00:00:00 [facility] TDAP (ADACEL) 2019-05-21 Completed [facility] of VACCINE 00:00:00 [facility] TDAP (ADACEL) 2019-05-21 Completed [facility] of VACCINE 00:00:00 [facility] TDAP (ADACEL) 2019-05-21 Completed [facility] of VACCINE 00:00:00 [facility] TDAP (ADACEL) 2019-05-21 Completed [facility] of VACCINE 00:00:00 [facility] TDAP (ADACEL) 2019-05-21 Completed [facility] of VACCINE 00:00:00 [facility] TDAP (ADACEL) 2019-05-21 Completed [facility] of VACCINE 00:00:00 [facility] TDAP (ADACEL) 2019-05-21 Completed [facility] of VACCINE 00:00:00 [facility] TDAP (ADACEL) 2019-05-21 Completed [facility] of VACCINE 00:00:00 [facility] TDAP (ADACEL) 2019-05-21 Completed [facility] of VACCINE 00:00:00 [facility] TDAP (ADACEL) 2019-05-21 Completed [facility] of VACCINE 00:00:00 [facility] TDAP (ADACEL) 2019-05-21 Completed [facility] of VACCINE 00:00:00 [facility] TDAP (ADACEL) 2019-05-21 Completed [facility] of VACCINE 00:00:00 [facility] TDAP (ADACEL) 2019-05-21 Completed [facility] of VACCINE 00:00:00 [facility] Influenza Virus 2019-02-06 Completed Universit [...] y of Vaccine Quad .5 mL 00:00:00 [facility] Influenza Virus 2019-02-06 Completed [facility] y of Vaccine Quad .5 mL 00:00:00 [facility] Influenza Virus 2019-02-06 Completed [facility] of Vaccine Quad .5 mL 00:00:00 [facility] 6[facility] Influenza Virus 2019-02-06 Completed [facility] of Vaccine Quad .5 mL 00:00:00 [facility] Influenza Virus 2019-02-06 Completed [facility] of Vaccine Quad .5 mL 00:00:00 [facility] 6[facility] Influenza Virus 2019-02-06 Completed [facility] of Vaccine Quad .5 mL 00:00:00 [facility] Influenza Virus 2019-02-06 Completed [facility] of Vaccine Quad .5 mL 00:00:00 [facility] 6[facility] Influenza Virus [...] y of Vaccine Quad .5 mL 00:00:00 [facility] 6[facility] Influenza Virus 2019-02-06 Completed [facility] of Vaccine Quad .5 mL 00:00:00 [facility] 6[facility] Influenza Virus 2019-02-06 Completed [facility]it y of Vaccine Quad .5 mL 00:00:00 [facility] 6[facility] Influenza Virus 2019-02-06 Completed [facility] of Vaccine Quad .5 mL 00:00:00 [facility] 6[facility] Influenza Virus 2019-02-06 Completed [facility] y of Vaccine Quad .5 mL 00:00:00 [facility] 6+ [facility] Influenza Virus 2019-02-06 Completed [facility] of Vaccine Quad .5 mL 00:00:00 [facility] 6+ [facility] Influenza Virus 2019-02-06 Completed [facility] y of Vaccine Quad .5 mL 00:00:00 [facility] 6+ [facility] Influenza Virus 2019-02-06 Completed [facility] of Vaccine Quad .5 mL 00:00:00 [facility] 6[facility] Influenza Virus 2019-02-06 Completed [facility] of Vaccine Quad .5 mL 00:00:00 [facility]+ [facility] Influenza Virus 2019-02-06 Completed [facility] of Vaccine Quad .5 mL 00:00:00 [facility] Influenza Virus 2019-02-06 Completed [facility] of Vaccine Quad .5 mL 00:00:00 [facility]+ [facility] Influenza Virus 2019-02-06 Completed [facility] of Vaccine Quad .5 mL 00:00:00 [facility]+ [facility] Influenza Virus 2019-02-06 Completed [facility] of Vaccine Quad .5 mL 00:00:00 [facility] 6+ [facility] Influenza Virus 2019-02-06 Completed [facility] of Vaccine Quad .5 mL 00:00:00 [facility] 6+ [facility] Influenza Virus 2019-02-06 Completed [facility] of Vaccine Quad .5 mL 00:00:00 [facility] 6+ [facility] Influenza Virus 2019-02-06 Completed [facility] of Vaccine Quad .5 mL 00:00:00 [facility] 6+ [facility] Influenza Virus 2019-02-06 Completed [facility] y of Vaccine Quad .5 mL 00:00:00 [facility] 6[facility] Influenza Virus 2019-02-06 Completed [facility] of Vaccine Quad .5 mL 00:00:00 [facility] 6+ [facility] Influenza Virus 2019-02-06 Completed [facility] of Vaccine Quad .5 mL 00:00:00 [facility] 6+ [facility] Influenza Virus 2019-02-06 Completed [facility] y of Vaccine Quad .5 mL 00:00:00 [facility] 6+ [facility] Influenza Virus [...] y of Vaccine Quad .5 mL 00:00:00 [facility] 6+ [facility] Influenza Virus 2019-02-06 Completed [facility] of Vaccine Quad .5 mL 00:00:00 [facility] 6[facility] Influenza Virus 2019-02-06 Completed [facility] y of Vaccine Quad .5 mL 00:00:00 [facility] 6[facility] Influenza Virus 2019-02-06 Completed [facility] y of Vaccine Quad .5 mL 00:00:00 [facility] 6+ [facility] Influenza Virus 2019-02-06 Completed [facility] of Vaccine Quad .5 mL 00:00:00 [facility] 6+ [facility] Influenza Virus [...] y of Vaccine Quad .5 mL 00:00:00 [facility] 6+ [facility] Influenza Virus [...] y of Vaccine Quad .5 mL 00:00:00 [facility] 6[facility] Influenza Virus 2019-02-06 Completed [facility]it y of Vaccine Quad .5 mL 00:00:00 [facility] IM 6+ MO Branch Vital Signs Vital Name Observation Time Observation Value Comments Source Systolic blood 2022-09-05 17:22:00 139 mm[Hg] Univer sity of pressure [facility] Diastolic blood 2022-09-05 17:22:00 91 mm[Hg] [facility] 2022-09-05 17:22:00 120 /min Universi ty [facility] Respiratory rate 2022-09-05 17:22:00 18 /min [facility] Oxygen saturation in 2022-09-05 17:22:00 99 /min [facility] Arterial blood by [facility] Pulse oximetry Branch Body temperature 2022-09-05 13:43:00 37.11 Irene [facility] Body weight 2022-09-05 13:43:00 68.04 kg [facility] BMI 2022-09-05 13:43:00 28.34 kg/m2 [facility] Systolic blood 2022-08-01 00:49:00 138 mm[Hg] Univer sity of pressure [facility] Diastolic blood 2022-08-01 00:49:00 104 mm[Hg] Unive rsity of pressure [facility] Heart rate 2022-08-01 00:49:00 108 /min Universi ty [facility] Respiratory rate 2022-08-01 00:49:00 18 /min [facility] Oxygen saturation in 2022-08-01 00:49:00 99 /min University of Arterial blood by [facility] Pulse oximetry Branch Body temperature 2022-07-31 22:52:00 37.11 Irene Univ ersity of [facility] Body height 2022-07-31 22:52:00 154.9 cm Universi ty of [facility] Body weight 2022-07-31 22:52:00 68.04 kg [facility]i ty [facility] BMI 2022-07-31 22:52:00 28.34 kg/m2 [facility] Systolic blood 2022-07-15 15:32:00 130 mm[Hg] Univer sity of pressure [facility] Diastolic blood 2022-07-15 15:32:00 90 mm[Hg] Unive rsity of pressure [facility] Heart rate 2022-07-15 15:31:00 81 /min [facility]i ty [facility] Body temperature 2022-07-15 15:31:00 36.94 Irene Univ ersity of [facility] Respiratory rate 2022-07-15 15:31:00 16 /min Univ ersity of [facility] Body weight 2022-07-15 15:31:00 68.493 kg [facility] BMI 2022-07-15 15:31:00 28.53 kg/m2 [facility] Oxygen saturation in 2022-07-15 15:31:00 99 /min [facility] of Arterial blood by [facility] Pulse oximetry Branch Systolic blood 2022-06-23 15:26:00 111 mm[Hg] Univer sity of pressure [facility] Diastolic blood 2022-06-23 15:26:00 75 mm[Hg] Unive rsity of pressure [facility] Heart rate 2022-06-23 15:26:00 108 /min [facility]i ty of [facility] Body temperature 2022-06-23 15:26:00 36.83 Irene Univ ersity of [facility] Respiratory rate 2022-06-23 15:26:00 18 /min Univ ersity of [facility] Body height 2022-06-23 15:26:00 154.9 cm [facility]i ty [facility] Body weight 2022-06-23 15:26:00 71.385 kg [facility] BMI 2022-06-23 15:26:00 29.74 kg/m2 [...] /min University of Arterial blood by [place] [facility] Body temperature 2022-05-05 18:24:00 37.11 Irene Univ ersity of [facility] Body height 2022-05-05 18:24:00 154.9 cm [facility] ty [facility] Body weight 2022-05-05 18:24:00 54.432 kg [facility] BMI 2022-05-05 18:24:00 22.67 kg/m2 [facility] Systolic blood 2022-04-26 14:28:00 135 mm[Hg] Univer sity of pressure [facility] Diastolic blood 2022-04-26 14:28:00 95 [...] 100 /min [facility] of Arterial blood by [place] [facility] Systolic blood 2022-04-26 00:21:00 151 mm[Hg] Univer sity of pressure [facility] Diastolic blood 2022-04-26 00:21:00 98 mm[Hg] Unive rsity of pressure [facility] Heart rate 2022-04-26 00:21:00 98 /min Universi ty of [facility] Body temperature 2022-04-26 00:21:00 36.72 Irene Univ ersity of [facility] Respiratory rate 2022-04-26 00:21:00 18 [...] 2022-04-07 22:43:36 113 /min [facility]i ty of [facility] Respiratory rate 2022-04-07 22:43:36 18 /min Univ ersity of [facility] Oxygen saturation in 2022-04-07 22:43:36 97 /min [facility] Arterial blood by [place] [facility] P[facility] Body temperature 2022-04-07 19:41:00 37.17 Irene Univ ersity of [facility] Body height 2022-04-07 19:41:00 154.9 cm Universi ty [facility] Body weight 2022-04-07 19:41:00 60.328 kg [facility]i ty of [facility] BMI 2022-04-07 19:41:00 25.13 kg/m2 [facility] Systolic blood 2022-03-24 19:00:00 125 mm[Hg] Univer sity of pressure [facility] Diastolic blood 2022-03-24 19:00:00 86 mm[Hg] Unive rsity of pressure [facility] Heart rate 2022-03-24 19:00:00 93 /min [facility]i ty of [facility] Respiratory rate 2022-03-24 19:00:00 17 /min Univ ersity of [facility] Oxygen saturation in 2022-03-24 19:00:00 97 /min [facility] Arterial blood by [place] [facility] Body temperature 2022-03-24 13:33:00 36.78 Irene Univ ersity of [facility] Systolic blood 2022-03-15 19:23:00 128 mm[Hg] Univer sity of pressure [facility] Diastolic blood 2022-03-15 19:23:00 89 mm[Hg] Unive rsity of pressure [facility] Heart rate 2022-03-15 19:23:00 104 /min [facility]i ty of [facility] Body weight 2022-03-15 19:23:00 60.328 kg [facility]i ty of [facility] BMI 2022-03-15 19:23:00 25.13 kg/m2 [facility] ty of [facility] Oxygen saturation in 2022-03-15 19:23:00 98 /min [facility] Arterial blood by [place] [facility] Systolic blood 2022-03-15 15:02:00 115 mm[Hg] Univer sity of pressure [facility] Diastolic blood 2022-03-15 15:02:00 70 mm[Hg] Unive rsity of pressure [facility] Heart rate 2022-03-15 15:02:00 85 /min [facility]i ty of [facility] Respiratory rate 2022-03-15 15:02:00 20 /min Univ ersity of [facility] Oxygen saturation in 2022-03-15 15:02:00 99 /min [facility] of Arterial blood by [place] [facility] Body temperature 2022-03-15 13:38:00 36.94 Irene Univ ersity of [facility] Body height 2022-03-15 13:38:00 154.9 cm [facility]i ty of [facility] Body weight 2022-03-15 13:38:00 54.432 kg [facility]i ty [facility] BMI 2022-03-15 13:38:00 22.67 kg/m2 [facility] Systolic blood 2022-03-11 16:30:00 124 mm[Hg] Univer sity of pressure [facility] Diastolic blood 2022-03-11 16:30:00 88 mm[Hg] Unive rsity of pressure [facility] Heart rate 2022-03-11 16:30:00 93 /min [facility]i ty of [facility] Body temperature 2022-03-11 16:30:00 36.67 Irene Univ ersity of [facility] Respiratory rate 2022-03-11 16:30:00 14 /min Univ ersity of [facility] Oxygen saturation in 2022-03-11 16:30:00 100 /min University of Arterial blood by [facility] Pulse oximetry Branch Body height 2022-03-11 14:19:00 154.9 cm Universi ty of [facility] Body weight 2022-03-11 14:19:00 58.968 kg [facility]i ty of [facility] BMI 2022-03-11 14:19:00 24.56 kg/m2 [facility] Systolic blood 2022-02-27 14:14:00 140 mm[Hg] Univer sity of pressure [facility] Diastolic blood 2022-02-27 14:14:00 90 mm[Hg] Unive rsity of pressure [facility] Heart rate 2022-02-27 14:14:00 103 /min [facility]i ty of [facility] Body height 2022-02-27 14:14:00 154.9 cm [facility] Body weight 2022-02-27 14:14:00 59.194 kg [facility] BMI 2022-02-27 14:14:00 24.66 kg/m2 [facility] Oxygen saturation in 2022-02-27 14:14:00 100 /min [facility] Arterial blood by [place] [facility] Systolic blood 2022-02-27 13:19:00 131 mm[Hg] Univer sity of pressure [facility] Diastolic blood 2022-02-27 13:19:00 86 mm[Hg] Unive rsity of pressure [facility] Heart rate 2022-02-27 13:19:00 102 /min [facility]i ty [facility] Body temperature 2022-02-27 13:19:00 36.33 Irene Univ ersity of [facility] Body height 2022-02-27 13:19:00 154.9 cm [facility] ty [facility] Body weight 2022-02-27 13:19:00 58.968 kg [facility] ty [facility] BMI 2022-02-27 13:19:00 24.56 kg/m2 [facility] Oxygen saturation in 2022-02-27 13:19:00 99 /min [facility] Arterial blood by [place] [facility] Systolic blood 2022-02-21 08:06:00 135 mm[Hg] Univer sity of pressure [facility] Diastolic blood 2022-02-21 08:06:00 97 mm[Hg] Unive rsity of pressure [facility] Heart rate 2022-02-21 08:06:00 98 /min [facility]i ty of [facility] Respiratory rate 2022-02-21 08:06:00 16 /min Univ ersity of [facility] Oxygen saturation in 2022-02-21 08:06:00 97 /min [facility] Arterial blood by [place] [facility] Body temperature 2022-02-21 06:16:00 36.94 Irene Univ ersity of [facility] Body height 2022-02-21 06:16:00 154.9 cm [facility]i ty [facility] Body weight 2022-02-21 06:16:00 60.963 kg [facility] ty [facility] BMI 2022-02-21 06:16:00 25.39 kg/m2 [facility] ty of [facility] Systolic blood 2022 20:08:00 136 [...] 98 /min University of Arterial blood by [facility] Pulse oximetry Branch Body temperature 2022 [...] 98 /min [facility] Arterial blood by [place] [facility] Pulse o[facility] Systolic blood 2022-01-18 14:50:00 144 mm[Hg] Univer sity of pressure [facility] Diastolic blood 2022-01-18 14:50:00 92 mm[Hg] Unive rsity of pressure [facility] Heart rate 2022-01-18 14:50:00 94 /min [facility]i ty of [facility] Respiratory rate 2022-01-18 14:50:00 20 /min Univ ersity of [facility] Oxygen saturation in 2022-01-18 14:50:00 99 /min [facility] Arterial blood by [place] [facility] Body weight 2022-01-18 10:18:00 54.432 kg [facility]i ty [facility] BMI 2022-01-18 10:18:00 22.67 kg/m2 [facility] Body temperature 2022-01-18 10:15:00 36.72 Irene Univ ersity of [facility] Systolic blood 2022-01-15 15:48:26 125 mm[Hg] Univer sity of pressure [facility] Diastolic blood 2022-01-15 15:48:26 85 mm[Hg] Unive rsity of pressure [facility] Heart rate 2022-01-15 15:48:26 95 /min [facility]i ty [facility] Respiratory rate 2022-01-15 15:48:26 18 /min Univ ersity of [facility] Oxygen saturation in 2022-01-15 15:48:26 98 /min [facility] Arterial blood by [place] [facility] P[facility] Body temperature 2022-01-15 13:32:00 37.11 Irene Univ ersity of [facility] Body height 2022-01-15 13:32:00 154.9 cm [facility]i ty [facility] Body weight 2022-01-15 13:32:00 54.432 kg [facility] ty [facility] BMI 2022-01-15 13:32:00 22.67 kg/m2 [facility] Systolic blood 2022-01-09 00:37:11 127 mm[Hg] Univer sity of pressure [facility] Diastolic blood 2022-01-09 00:37:11 90 mm[Hg] Unive rsity of pressure [facility] Heart rate 2022-01-09 00:37:11 94 /min [facility]i ty of [facility] Body temperature 2022-01-09 00:37:11 37.11 Irene Univ ersity of [facility] Respiratory rate 2022-01-09 00:37:11 16 /min Univ ersity of [facility] Oxygen saturation in 2022-01-09 00:37:11 97 /min University of Arterial blood by [facility] Pulse oximetry Branch Body height 2022-01-08 23:03:00 154.9 cm Universi [facility] Body weight 2022-01-08 23:03:00 58.06 kg Universi [facility] BMI 2022-01-08 23:03:00 24.19 kg/m2 [facility] and [facility] Systolic blood 2021-12-12 18:00:00 126 mm[Hg] Univer sity of pressure [facility] Diastolic blood 2021-12-12 18:00:00 87 mm[Hg] [facility] Heart rate 2021-12-12 18:00:00 86 /min [facility] Body temperature 2021-12-12 18:00:00 36.89 Irene [facility] Respiratory rate 2021-12-12 18:00:00 18 /min [facility] Body height 2021-12-12 18:00:00 154.9 cm [facility] Body weight 2021-12-12 18:00:00 57.153 kg [facility] BMI 2021-12-12 18:00:00 23.81 kg/m2 [facility] Procedures Procedure Date / Time Performing Clinician Source Performed CONSENT/REFUSAL FOR 2022-09-05 13:42:02 Doctor Unassigned, No [facility] [place] DIAGNOSIS AND TREATMENT Name [facility] LIPASE 2022-07-31 23:13:00 Manju Newell [facility] TEST, SERUM 2022-07-31 23:13:00 [facility] COMP. METABOLIC PANEL 2022-07-31 23:13:00 Manju Newell [facility] [place] ([id number]) [facility] CBC WITH DIFF 2022-07-31 23:13:00 Manju Newell [facility] CONSENT/REFUSAL FOR 2022-07-31 22:49:17 Doctor Unassigned, No Un iversity [facility] DIAGNOSIS AND TREATMENT Name [facility] XR ANKLE 3+ VW RIGHT 2022-07-15 16:00:00 Cari Kaur [facility] XR FOOT 3+ VW RIGHT 2022-07-15 16:00:00 Cari Kaur [facility] XR FOOT 3+ VW RIGHT 2022-07-15 16:00:00 [facility] PATIENT FINANCIAL 2022-07-15 15:25:53 Doctor Unassigned, No [facility] POLICY [facility] POCT MOLECULAR STREP 2022-06-23 16:06:00 Unknown, Attending [facility] ASSIGNMENT OF BENEFITS 2022-06-23 15:18:28 Doctor Unassigned, No [facility] COMP. METABOLIC PANEL 2022-05-05 19:14:00 Karon Norton [facility] ([id number]) [facility] CBC WITH DIFF 2022-05-05 19:14:00 [facility] 2022-05-05 19:00:00 Karon Norton [facility] URINALYSIS 2022-05-05 18:58:[address] [facility] ABDOMEN PELVIS WO 2022-04-26 15:11:00 Zion Bridges [facility] COMP. METABOLIC PANEL 2022-04-26 14:49:00 Zion Bridges [facility] ([id number]) [facility] CBC WITH DIFF 2022-04-26 14:49:00 Zion Bridges [facility] URINALYSIS 2022-04-26 14:49:00 Zion Bridges [facility] POCT TEST 2022-04-26 14:45:00 Zion Bridges [facility] CONSENT/REFUSAL FOR 2022-04-26 14:22:29 Doctor Unassigned, No [facility] DIAGNOSIS AND TREATMENT [facility] POCT TEST 2022-04-26 01:22:00 Zion Bridges [facility] ASSIGNMENT OF BENEFITS 2022-04-26 00:54:02 Doctor Unassigned, No [facility] URINALYSIS 2022-04-26 00:45:00 Zion Bridges [facility] CONSENT/REFUSAL FOR 2022-04-26 00:16:47 Doctor Unassigned, No [facility] [place] DIAGNOSIS AND TREATMENT Name [facility] BASIC METABOLIC PANEL 2022-04-07 22:35:00 Olamide Garvin [facility] (NA, K, CL, CO2, Medical Branch GLUCOSE, BUN, CREATININE, CA) CBC WITH DIFF 2022-04-07 22:35:[address] [facility] URINALYSIS 2022-04-07 21:36:[address] [facility] URINE DRUG (IMMUNOASSAY) 2022-04-07 21:36:00 Olamide Garvin [facility] [place] - COMPREHENSIVE DRUG [facility] SCREEN W/O REFLEX CONSENT/REFUSAL FOR 2022-04-07 19:29:15 Doctor Unassigned, No [facility] [place] DIAGNOSIS AND TREATMENT [facility] POCT TEST 2022-03-24 14:07:00 Kellie Duncan [facility] CONSENT/REFUSAL FOR 2022-03-24 13:27:20 Doctor Unassigned, No [facility] [place] DIAGNOSIS AND TREATMENT Name [facility] CT ABDOMEN PELVIS WO 2022-03-15 14:09:04 Anna Gould [facility] CONTRAST [facility] URINALYSIS 2022-03-15 13:53:00 Anna Gould [facility] POCT TEST 2022-03-15 13:52:00 [facility] CONSENT/REFUSAL FOR 2022-03-15 13:37:02 Doctor Unassigned, No [facility] [place] DIAGNOSIS AND TREATMENT [facility] POCT TEST 2022-03-11 14:59:00 Angelica Viveros [facility] ty [facility] FLU VACC ([id number]), 6 2022-02-27 13:34:55 Vijay Martinez [facility] MO-64 YRS, .5ML, IM, Medical [facility] QUAD (FLUCELVAX) NOTICE OF PRIVACY 2022-02-21 06:06:30 Doctor Unassigned, No Univ [facility] PRACTICES Name Medical Branch CONSENT/REFUSAL FOR 2022-02-21 06:03:41 Doctor Unassigned, No [facility] [place] DIAGNOSIS AND TREATMENT Name Medical Branch XR ANKLE <3 VW RIGHT 2022 17:56:42 Maggie Hamilton [facility] CT ABDOMEN PELVIS W 2022 17:44:17 Maggie Hamilton [facility] CT TRAUMA CERVICAL SPINE 2022 17:43:49 Maggie Hamilton [facility] CONTRAST [facility] POCT TEST 2022 17:27:00 Maggie [facility] COMP. METABOLIC PANEL 2022 17:17:00 Maggie Hamilton [facility] ([id number]) Medical Branch CBC WITH DIFF 2022 17:17:00 Maggie Hamilton [facility] CONSENT/REFUSAL FOR 2022 16:53:13 Doctor Unassigned, No [facility] Name Medical Branch US GALL BLADDER 2022-01-18 12:31:09 Bernardo Levy [facility] US PELVIS COMPLETE WITH 2022-01-18 12:21:13 Melvin Zhao [facility] TRANSVAGINAL [facility] CT ABDOMEN PELVIS W 2022-01-18 11:20:50 Melvin Zhao [facility] CONTRAST [facility] POCT TEST 2022-01-18 10:57:00 Jayy Kennedy [facility] COVID-19 (ID NOW RAPID 2022-01-18 10:57:00 Jayy Kennedy [facility] TESTING) Medical Branch URINALYSIS 2022-01-18 10:47:00 Jayy Kennedy [facility] [place] [facility] LIPASE 2022-01-18 10:29:00 Jayy Kennedy [facility] TEST, SERUM 2022-01-18 10:29:00 Jayy Kennedy [facility] HEPATIC FUNCTION PANEL 2022-01-18 10:29:00 Jayy Kennedy [facility] ([id number]) (ALB,T.PRO,BILI Medical Branch T,BU/BC,ALT,AST,ALK PHOS) BASIC METABOLIC PANEL 2022-01-18 10:29:00 Jayy Kennedy [facility] (NA, K, CL, CO2, Medical Branch GLUCOSE, BUN, CREATININE, CA) CBC WITH DIFF 2022-01-18 10:29:00 Jayy Kennedy [facility] CONSENT/REFUSAL FOR 2022-01-18 10:13:31 Doctor Unassigned, No Un iversity [facility] DIAGNOSIS AND TREATMENT Name [facility] CT HEAD WO CONTRAST 2022-01-15 15:22:29 Danita [facility] TEST, SERUM 2022-01-15 14:36:00 Danita [facility] BASIC METABOLIC PANEL 2022-01-15 14:36:[address] [facility] (NA, K, CL, CO2, Medical Branch GLUCOSE, BUN, CREATININE, CA) CBC WITH DIFF 2022-01-15 14:36:00 Danita [facility] CONSENT/REFUSAL FOR 2022-01-15 13:28:12 Doctor Unassigned, No [facility] Name [facility] XR CERVICAL SPINE 4 VW 2022-01-09 00:29:16 [facility] LUMBAR SP[facility] 4 VW 2022-01-09 00:29:16 [facility] SPINE THORACIC 3 VW 2022-01-09 00:29:16 [facility]IS 2022-01-08 23:50:00 [facility] CONSENT/REFUSAL FOR 2022-01-08 22:51:08 Doctor Unassigned, No [facility] TREAT[facility] Name [facility] GALV ONLY - VAGINAL 2021-12-12 18:37:00 Prasanna Vargas [facility] PATHOGENS BY NUCLEIC [facility] ACID TESTING URINE CULTURE 2021-12-12 18:32:00 Prasanna Vargas [facility] POCT TEST 2021-12-12 18:31:00 [facility]ia [facility] POCT URINALYSIS W/O 2021-12-12 18:31:00 Prasanna Vargas [facility] [place] SPECIFIC [facility] Branch Encounters Start End Encounter Admission Attending Care Care Encounter Source Date/Time Date/Time Type Type Clinicians Facility Department ID 2021-03-[address] [facility] [id number] Univers 03:14:[address] [facility] 2021-03-[address] [facility] [id number] Univers 20:05:[address] [facility] 2021-03-[address] [facility] [id number] Univers 12:48:[address] [facility] 2021-03-[address] [facility] [id number] Univers 02:43:[address] [facility] 2021-03-[address] [facility] [id number] Univers 00:27:[address] [facility] 2021-03-[address] [facility] [id number] Univers 22:10:[address] [facility] 2021-03-[address] [facility] [id number] Univers 20:04:[address] [facility] 2021-03-[address] [facility] [id number] Univers 15:25:[address] [facility] 2021-03-[address] [facility] [id number] Univers 11:43:[address] [facility] 2021-03-[address] [facility] [id number] Univers 07:41:[address] [facility] 2021-03-[address] [facility] [id number] Univers 05:43:[address] [facility] 2021-03-[address] [facility] [id number] Univers 03:43:[address] [facility] 2021-03-[address] [facility] [id number] Univers 01:31:[address] [facility] 2021-03-12 Emergency X [facility] ERT [id number] Univers 00:56:[address] [facility] 2021-03-[address] [facility] [id number] Univers 00:56:[address] [facility] 2021-03-[address] [facility] [id number] Univers 17:47:[address] [facility] 2021-03-[address] [facility] [id number] Univers 16:27:[address] [facility] 2021-03-[address] [facility] [id number] Univers 12:00:[address] [facility] 2021-03-[address] [facility] [id number] Univers 10:33:[address] [facility] 2021-03-[address] [facility] [id number] Univers 01:36:[address] [facility] 2021-03-[address] [facility] [id number] Univers 23:35:[address] [facility] 2021-03-[address] [facility] [id number] Univers 19:06:[address] [facility] 2021-03-[address] [facility] [id number] Univers 12:39:[address] [facility] 2021-03-[address] [facility] [id number] Univers 06:54:[address] [facility] 2021-03-09 Outpatient P COMB CHRIS [id number] Univers 13:25:[address] [facility] 2021-03-09 Outpatient P COMB CHRIS [id number] Univers 13:08:[address] [facility] 2021-03-09 Outpatient P COMB CHRIS [id number] Univers 12:37:[address] [facility] 2021-03-09 Outpatient P [facility] CHRIS [id number] Univers 11:51:[address] [facility] 2022-11-15 2022-11-15 Outpatient R JC JEREMY [facility] [id number] Univers 09:40:00 09:40:00 JEREMY GREENEchino [facility] 2022-11-09 2022-11-[address] [facility] [id number] Willis 15:26:18 15:26:18 0630 F Jeffery 2022-11-06 2022-11-06 Outpatient R JUAN [facility] [id number] Univers 13:00:00 13:00:00 VIJAY lechuga [facility] 2022-10-29 2022-10-29 Patient Jc [facility] 1.2.840.114 [id number] Univers 00:00:00 00:00:00 Secure [facility] [id number] ity of [place] 4.2.7.2.686 Martin as TOÑO?BLEA [id number] Ri dical KNEY 044 [facility] OFFICE [facility] 2022-10-03 2022-10-03 Letter Gurjit Lim [facility] ..840.114 [id number] Univers 00:00:00 00:00:00 (Out) HEALTH [id number] it y of [place] 4.2.7.2.686 [place] as TOÑO?BLEA [id number] Ri dical MIKI 092 [facility] 2022-10-02 2022-10-02 Outpatient R SHARMIN [facility] [id number] Univers 10:00:00 10:00:00 , CELINA it y of [facility] 2022-10-01 2022-10-01 Outpatient R ARJUN [facility] [id number] Univers 09:40:00 09:40:[address] o f [facility] 2022-09-25 2022-09-25 Telephone [facility] ..[id number] Univers 00:00:00 00:00:00 Rad [facility] [id number] ity of [place].7.2.[place] [id number] Ri whit TORRES 059 [facility] 2022-09-21 2022-09-21 Outpatient R LEXY [facility] [id number] Univers 09:30:00 09:30:[address] [facility] 2022-09-21 2022-09-21 Letter [facility] ..840.114 [id number] Univers 00:00:00 00:00:00 (Out) [employer] HEALTH [id number] it y of [place] 4.2.7.2.686 [place] as TOÑO?BLEA [phone] Ri dicaliyah [place] 092 [facility] 2022-09-21 2022-09-21 Telephone [facility] 1..[id number] Univers 00:00:00 00:00:00 Kassandra HEALTH 350.1.13.10 it y of [place] 4.2.7.2.686 [place] as TOÑO?BLEA [phone] Ri whit [address] 2022-09-21 2022-09-21 Telephone [facility] 1.2.730.805 [id number] Univers 00:00:00 00:00:00 [employer] [id number] it y of [place] 4.2.7.2.686 [place] as TOÑO?BLEA [id number] Ri alessandra[address] 2022-09-14 2022-09-14 Outpatient R EMORY [facility] [id number] Univers 09:30:00 09:30:00 [facility] 2022-09-12 2022-09-12 Telephone [facility] 1..[id number] [id number] Univers 00:00:00 00:00:00 [employer] [id number] it y of [place] 4.2.7.2.686 Martin as TOÑO?BLEA [id number] [address] 2022-09-07 2022-09-07 Outpatient R [facility] [id number] Univers 11:30:00 11:30:00 [facility] 2022-09-05 2022-09-[address] [facility] ERT [id number] Univers 08:44:00 13:15:00 CYNVANESA [facility] 2022-09-05 2022-09-05 Emergency [facility] ..[id number] Univers 08:44:00 13:15:00 Cynise [place] 350.1.13.10 i ty of [place] 4.2.7.2.[place] [id number] [address] 2022-09-04 2022-09-04 Telephone [facility] 1.2.484.264 [id number] Univers 00:00:00 00:00:00 [employer] 350.1.13.10 it y of [place] 4.2.7.2.686 [place] as TOÑO?BLEA [id number] Ri whit [place] 518352 [facility] OFFICE [facility] 2022-09-04 2022-09-04 Patient Serra, [facility] 1.2.840.114 [id number] Univers 00:00:00 00:00:00 Secure Msg Sendzohra KayceePilarPauloPilar LAWSON 350.1.13.10 ity of [facility] 4.2.7.2.[address] [facility] [id number] Ri dical NAL 059 [facility] 2022-08-29 2022-08-29 Outpatient R SHARMIN [facility] [id number] Univers 09:00:00 09:00:00 , CELINA it y of [facility] 2022-08-14 2022-08-14 Patient Doctor [facility] 1.2.840.114 [id number] Univers 00:00:00 00:00:00 Secure Msg [facility] 350.1.13.10 ity of [place] [facility] 4.2.7.2.686 [place] TOÑO?BLEA [id number] Ri dic[place] 205722 [facility] 2022-07-31 2022-07-31 [facility] [id number] Univers 17:56:00 20:30:00 MANJU it y [facility] 2022-07-31 2022-07-31 Emergency [facility] 1.2.305.372 [id number] Univers 17:56:00 20:30:00 Manju LAWSON 350.1.13.10 ity of [facility] 4.2.7.2.[place] [id number] [facility] 084 [place] 2022-07-15 2022-07-15 Outpatient R [facility] [id number] Univers 09:46:45 23:59:[address] [facility] 2022-07-15 2022-07-15 Hospital [facility] 1.2.840.114 [id number] Univers 09:46:45 23:59:00 Encounter Cari Farmer [facility] 350.1.13.10 ity of [facility] 4.2.7.2.686 [place] as TOÑO?BLEA [id number] [facility] 808 [facility] OFFICE [facility] 2022-07-15 2022-07-15 Hospital [facility] 1.2.840.114 [id number] Univers 09:46:45 23:59:00 Encounter Cari Farmer [facility] 350.1.13.10 ity of [place] 4.2.7.2.686 Martin as TOÑO?BLEA [id number] [facility] 808 [facility] OFFICE [facility] 2022-07-15 2022-07-15 Urgent Cari Kaur [facility] 1.2.840 .114 [id number] Univers 09:20:00 10:29:17 Care Unknown, Attending HEALTH 350.1.13.10 ity of [place] 4.2.7.2.686 Martin as TOÑO?BLEA [id number] [address] OFFICE [facility] 2022-07-15 2022-07-15 Orders Doctor ORTEGA 1.2.840.114 [id number] Univers 00:00:00 00:00:00 Only Unassigned, YAZMIN 350.1.13.10 ity of [place] [facility] 4.2.7.2.686 Martin as [id number] [address] 2022-06-23 2022-06-23 Outpatient R NEGRITA [facility] [id number] Univers 09:20:00 10:27:39 [facility] ity of [facility] 2022-06-23 2022-06-23 Urgent [facility] 1.2.840. 114 [id number] Univers 09:20:00 10:27:39 Care Unknown, Attending HEALTH 350.1.13.10 ity of [place] 4.2.7.2.686 Martin as TOÑO?BLEA [id number] [address] OFFICE [facility] 2022-06-23 2022-06-23 Orders Doctor JORDAN 1.2.840.114 [id number] Univers 00:00:00 00:00:00 Only Unassigned, YAZMIN 350.1.13.10 ity of [place] [facility] 4.2.7.2.686 Martin as [id number] [address] 2022-06-152022-06-15 Outpatient R JC, [facility] [id number] Univers 09:40:00 09:40:00 JEREMY lechuga [facility] 2022-05-29 2022-05-29 Outpatient R PUGH, [facility] [id number] Univers 08:00:00 08:00:00 KASSANDRA lechuga [facility] 2022-05-15 2022-05-15 Outpatient R ANGELA, [facility] [id number] Univers 09:20:00 09:20:00 BENNETT lechuga [facility] 2022-05-11 2022-05-11 Outpatient R PUGH, [facility] [id number] Univers 09:30:00 09:30:00 KASSANDRA chino [facility] 2022-05-05 2022-05-05 Emergency X ERROL [facility] ERT [id number] Univers 12:26:00 16:11:00 KARON lechuga [facility] 2022-05-05 2022-05-05 Emergency [facility] 1.2.840.114 [id number] Univers 12:26:00 16:11:00 Karon LULU 350.1.13.10 i ty of [place] 4.2.7.2.686 [facility] [id number] [address] 2022-05-01 2022-05-01 Outpatient R PRASANNA VARGAS [facility] [id number] Univers 00:00:00 00:00:00 ankush [facility] 2022-04-26 2022-04-26 Emergency X SINGER [facility] ERT [id number] Univers 08:30:00 09:59:00 ZION lechuga [facility] 2022-04-26 2022-04-26 Emergency [facility] 1.2.959.211 [id number] Univers 08:30:00 09:59:00 Zion LULU 350.1.13.10 i ty of [place] 4.2.7.2.686 [facility] [id number] [address] 2022-04-25 2022-04-25 Emergency X GUTIERREZ, [facility] ERT [id number] Univers 18:23:00 21:55:00 KENNEDY lechuga [facility] 2022-04-25 2022-04-25 Emergency [facility] 1.2.910.103 [id number] Univers 18:23:00 21:55:00 Kennedy LAWSON 350.1.13.10 i ty of [facility] 4.2.7.2.686 [place] [id number] [address] 2022-04-19 2022-04-19 Outpatient [facility] [id number] Univers 10:00:00 10:00:00 JEREMY lechuga [facility] 2022-04-12 2022-04-12 Telephone [facility] 1.2.023.315 [id number] Univers 00:00:00 00:00:00 [employer] 350.1.13.10 it y of [facility] 4.2.7.2.686 [place] as TOÑO?BLEA [phone] [address] OFFICE [facility] 2022-04-11 2022-04-11 Telephone [facility] 1.2.840.114 [id number] Univers 00:00:00 00:00:00 Darrion Merge[employer]rs AG [facility] 350.1.13.10 ity of [place] 4.2.7.2.686 Matrin as TOÑO?BLEA [id number] [address] OFFICE [facility] 2022-04-10 2022-04-10 Telephone [facility] 1.2.053.084 [id number] Univers 00:00:00 00:00:00 [employer] 350.1.13.10 it y of [facility] 4.2.7.2.686 [place] as TOÑO?BLEA [phone] [address] OFFICE [facility] 2022-04-09 2022-04-09 Office [facility] 1.2.840.114 [id number] Univers 09:30:00 09:30:00 Visit [employer] 350.1.13.10 it y of [place] 4.2.7.2.686 Martin as TOÑO?BLEA [id number] [address] OFFICE [facility] 2022-04-09 2022-04-09 Outpatient R LEXY [facility] [id number] Univers 09:30:00 09:21:44 KASSANDRAAUGUSTO lechuga [facility] 2022-04-07 2022-04-07 Emergency X VIRGIE, [facility] ERT [id number] Univers 13:41:00 17:49:00 OLAMIDEISMAEL lechuga [facility] 2022-04-07 2022-04-07 Emergency [facility] 1.2.724.177 [id number] Univers 13:41:00 17:49:00 Olamide Laila LULU 350.1.13.10 ity of [place] 4.2.7.2.686 [facility] [id number] [address] 2022-04-04 2022-04-04 Telephone [facility] 1.2.866.392 [id number] Univers 00:00:00 00:00:00 Kassandra HEALTH 350.1.13.10 it y of [place] 4.2.7.2.686 [place] as TOÑO?BLEA [id number] [address] MEDICAL OFFICE [facility] 2022-04-02 2022-04-02 Outpatient R LEXY [facility] [id number] Univers 10:30:00 10:30:00 KASSANDRA lechuga [facility] 2022-03-28 2022-03-28 Patient Doctor [facility] 1.2.840.114 [id number] Univers 00:00:00 00:00:00 Secure Msg Unassigned, HEALTH 350.1.13.10 ity of [place] 4.2.7.2.686 [place] TOÑO?BLEA [id number] [address] MEDICAL OFFICE [facility] 2022-03-24 2022-03-24 Emergency X PERLA, [facility] ERT [id number] Univers 07:35:00 13:11:00 KELLIE lechuga [facility] 2022-03-24 2022-03-24 Emergency Perla, [facility] 1.2.234.742 [id number] Univers 07:35:00 13:11:00 Kellie LAWSON 350.1.13.10 ity [facility] 4.2.7.2.686 [facility] [id number] [address] 2022-03-23 2022-03-23 Outpatient R LEXY [facility] [id number] Univers 10:30:00 10:30:00 KASSANDRA lechuga [facility] 2022-03-23 2022-03-23 [facility]phone [facility] 1.2.840.114 [id number] Univers 00:00:00 00:00:00 [facility] 350.1.13.10 ity of [place] 4.2.7.2.686 [place] TOÑO?BLEA [id number] [address] 2022-03-22 2022-03-22 Telephone [facility] 1.2.840.114 [id number] Univers 00:00:00 00:00:00 [facility] 350.1.13.10 ity of [place] 4.2.7.2.686 [place] TOÑO?BLEA [id number] [address] 2022-03-22 2022-03-22 Refill [facility] 1.2.840.114 [id number] Univers 00:00:00 00:00:00 [facility] 350.1.13.10 ity of [place] 4.2.7.2.686 [place] TOÑO?BLEA [id number] [address] 2022-03-21 2022-03-21 Telephone [facility] 1.2.840.114 [id number] Univers 00:00:00 00:00:00 [facility] 350.1.13.10 ity of [place] 4.2.7.2.686 [place] TOÑO?BLEA [id number] [address] 2022-03-15 2022-03-15 Outpatient R ARJUN [facility] [id number] Univers 14:00:00 14:36:[address] [facility] 2022-03-15 2022-03-15 Office [facility] 1.2.840.114 [id number] Univers 14:00:00 14:36:19 Visit Reji LAWSON 350.1.13.10 ity of [facility] 4.2.7.2.686 [place] [phone] Ri alessandraaliyah TORRES [address] [facility] 2022-03-15 2022-03-15 Emergency X NAYANACAPRI [facility] ERT [id number] Univers 08:40:00 10:47:00 ANNA [facility] 2022-03-15 2022-03-15 Emergency [facility] 1.2.840.114 [id number] Univers 08:40:00 10:47:00 [facility] 350.1.13.10 i ty of [facility] 4.2.7.2.686 [place] [id number] [address] 2022-03-14 2022-03-14 Outpatient PRASANNA LOOMIS [facility] [id number] Univers 10:30:00 10:30:00 ity [facility] 2022-03-11 2022-03-11 Emergency X [facility]ICEDZ[facility] ERT [id number] Univers 09:22:00 12:15:00 SHINTA [facility] 2022-03-11 2022-03-11 Emergency FeliceD[facility] 1.2.840.114 [id number] Univers 09:22:00 12:15:00 Angelica LAWSON 350.1.13.10 i ty of [facility] 4.2.7.2.686 [place] [id number] [address] 2022-03-06 2022-03-06 Outpatient Farzana PUGH [facility] [id number] Univers 08:30:00 08:30:00 KASSANDRA [facility] 2022-03-02 2022-03-02 Telephone [facility] 1.2.840.114 [id number] Univers 00:00:00 00:00:00 [facility] 350.1.13.10 ity of [place] 4.2.7.2.686 [place] TOÑO?BLEA [id number] Ri alessandraaliyah [place] [address] [place] MEDICAL OFFICE [facility] 2022-02-27 2022-02-27 Outpatient Farzana PUGH [facility] [id number] Univers 09:30:00 09:49:42 KASSANDRA lechuga [facility] 2022-02-27 2022-02-27 Office PughDZILTH[facility] 1.2.840.114 [id number] Univers 09:30:00 09:49:42 Visit Kassandra [facility] 350.1.13.10 it y of [facility] 4.2.7.2.686 [place] TOÑO?BLEA [id number] Ri whit [place] [address] [place] MEDICAL OFFICE [facility] 2022-02-27 2022-02-27 Office Jaun [facility] 1.2.840.114 [id number] Univers 08:00:00 09:12:17 Visit Vijay [facility] 350.1.13.10 it y of [facility] 4.2.7.2.686 [place] TOÑO?BLEA [id number] Ri whit MINOR 044 [facility] OFFICE [facility] 2022-02-26 2022-02-26 Outpatient R [facility] [id number] Univers 11:30:00 11:30:00 KASSANDRA [facility] 2022-02-21 2022-02-21 Emergency X ALFONSODZIL[facility] ERT [id number] Univers 01:20:00 03:44:00 MAGGIE [facility] 2022-02-21 2022-02-21 Emergency Al[facility]DZ[facility] 1.2.840.114 [id number] Univers 01:20:00 03:44:00 Maggie LAWSON 350.1.13.10 ity of [place] 4.2.7.2.686 [place] [facility] [phone] [facility] [address] [place] 2022-02-19 2022-02-19 Patient [facility] 1.2.840.114 [id number] Univers 00:00:00 00:00:00 Secure Msg Kendal Amaral HEALTH 350.1.13.10 ity of [place] 4.2.7.2.686 [place] TOÑO?BLEA [id number] Ri whit [place] 044 [facility] OFFICE [facility] 2022-02-19 2022-02-19 Patient Robb [facility] 1.2.840.114 [id number] Univers 00:00:00 00:00:00 Secure Msg Kendal Amaral HEALTH 350.1.13.10 ity of [place] 4.2.7.2.686 [place] TOÑO?BLEA [phone] Me whit [place] [address] [place] MEDICAL OFFICE BUILDING 2022-02-19 2022-02-19 Patient Suzette [facility] 1.2.596.101 [id number] Univers 00:00:00 00:00:00 Secure Msg Ade Chen FLACO 350.1.13.10 ity of [facility] 4.2.7.2.686 [place] [id number] [facility] [address] [place] 2022 2022 Emergency X ALFONSODZIL[facility] ERT [id number] Univers 11:58:00 15:13:00 MAGGIE lechuga [facility] 2022 2022 Emergency [facility] 1.2.840.114 [id number] Univers 11:58:00 15:13:00 Maggie [facility] 350.1.13.10 ity of [place] 4.2.7.2.686 [place] [facility] [phone] [facility] [address] [place] 2022-02-09 2022-02-09 Outpatient R BRANDON [facility] [id number] Univers 09:00:00 09:00:[address] [facility] 2022-02-06 2022-02-06 Outpatient R JUAN [facility] [id number] Univers 10:00:00 10:00:00 VIJAY lechuga [facility] 2022-02-05 2022-02-05 Nurse Nurse, Filippo [facility] 1.2.840.114 [id number] Univers 09:45:00 10:05:00 Visit Ileana Medrano [facility] 350.1.13.10 ity of [place] 4.2.7.2.686 [place] TOÑO?BLEA [id number] Ri whit [place] [address] [place] MEDICAL OFFICE [facility] 2022-02-05 2022-02-05 Outpatient R OLIVER [facility] [id number] Univers 09:20:00 09:20:[address] [facility] 2022-01-26 2022-01-26 Prasanna Gimenez [facility] 1.2.582.027 [id number] Univers 00:00:00 00:00:00 Management Jm LAWSON 350.1.13.10 ity of [place] 4.2.7.2.686 [place] [id number] Ri dical [facility] 134 [facility] 2022-01-22 2022-01-22 Outpatient R JUAN, [facility] [id number] Univers 11:00:00 11:00:00 VIJAYLAVINIA lechuga [facility] 2022-01-18 2022-01-18 Emergency X GARDENIA [facility] ERT [id number] Univers 05:17:00 10:25:00 BERNARDO [facility] 2022-01-18 2022-01-18 Emergency KennedyJayy W TRAUMA 1.2.840.11 [id number] Univers 05:17:00 10:25:00 Bernardo Levy BRIST[place] 350.1.13.[address] [facility].2.7.2.686 [place] [id number] [facility] [address] [place] 2022-01-15 2022-01-15 Emergency X DANITADZILTH[facility] ERT [id number] Univers 08:34:00 10:49:00 MAURA lechuga [facility] 2022-01-15 2022-01-15 Emergency Larry Perez R [facility] 1.2.840.1 [id number] Univers 08:34:00 10:49:00 Maura Samayoa 350.1.13.10 ity of [place] 4.2.7.2.686 [facility] s [place] [id number] [address] 2022-01-08 2022-01-08 Emergency X GABRIELA, [facility] ERT [id number] Univers 18:04:00 20:09:00 HUMBERTO chino [facility] 2022-01-08 2022-01-08 Emergency GabrielaDZIL[facility] 1.2.840.114 [id number] Univers 18:04:00 20:09:00 Humberto LAWSON 350.1.13.10 i ty of [place] 4.2.7.2.686 [place] [id number] [address] 2021-12-12 2021-12-12 Outpatient R DEYVI, [facility] [id number] Univers 13:30:00 13:40:21 TETO [facility] 2021-12-12 2021-12-12 Office Prasanna Vargas [facility] 1.2.840.114 [id number] Univers 13:30:00 13:40:21 Visit Teto Carnes 350.1.13.10 ity [facility] 4.2.7.2.[address] [facility] [id number] Ri dical [address] 2021-12-12 2021-12-12 Outpatient R DEYVI [facility] [id number] Univers 13:30:00 13:40:[facility] 2021-12-12 2021-12-12 Outpatient R DEYVI [facility] [id number] Univers 13:30:00 13:40:21 [facility] 2021-12-11 2021-12-11 Outpatient R SUZETTE, [facility] [id number] Univers 16:15:00 16:15:00 ADE [facility] 2021-12-05 2021-12-05 Outpatient R LYSSA, [facility] [id number] Univers 14:15:00 14:15:00 ROMULO [facility] 2021-11-28 2021-11-28 Emergency X ERROL, [facility] ERT [id number] Univers 08:49:00 11:02:00 KARON [facility] 2021-11-28 2021-11-28 Emergency Norton, [facility] 1.2.840.114 [id number] Univers 08:49:00 11:02:00 Karon LAWSON 350.1.13.10 i ty [facility] 4.2.7.2.686 [place] [id number] [address] 2021-11-24 2021-11-24 Emergency X DEV, K [facility] ERT [id number] Univers 18:14:00 21:04:00 itFormerly [facility] 2021-11-24 2021-11-24 Emergency Dev, K [facility] 1.2.840.114 [id number] Univers 18:14:00 21:04:00 Sharlene LAWSON 350.1.13.10 i ty of [place] 4.2.7.2.686 [place] [phone] [facility] [address] [place] 2021-11-24 2021-11-24 Telephone [facility] 1.2.840.114 [id number] Univers 00:00:00 00:00:00 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 [facility] [address] [place] 2021-11-18 2021-11-18 Outpatient R [facility] [id number] Univers 10:41:40 23:59:00 FLACO maradiagay o f [facility] 2021-11-18 2021-11-18 Hospital [facility] 1.2.068.087 [id number] Univers 10:41:40 23:59:00 Encounter Flaco HEALTH 350.1.13.10 ity of [place] 4.2.7.2.686 [place] as TOÑO?BLEA [id number] Ri whit [place] [address] [place] MEDICAL OFFICE BUILDING 2021-11-18 2021-11-18 Urgent [facility] 1.2.840.114 [id number] Univers 10:20:00 10:53:20 Care Flaco HEALTH 350.1.13.10 i ty of [place] 4.2.7.2.686 [place] as TOÑO?BLEA [id number] [facility] [address] [place] MEDICAL OFFICE [facility] 2021-11-09 2021-11-09 Outpatient Farzana MIXON [facility] [id number] Univers 10:30:00 10:30:00 CELINA lechuga [facility] 2021-10-25 2021-10-25 Urgent Ileana Medrano [facility] 1.2.840.114 [id number] Univers 13:20:00 13:20:00 Care Oliver, [facility] 350.1.13.10 ity of [place] 4.2.7.2.686 [place] as TOÑO?BLEA [id number] [address] MEDICAL OFFICE [facility] 2021-10-25 2021-10-25 Outpatient Farzana MEDRANO [facility] [id number] Univers 13:20:00 12:47:59 ILEANA lechuga [facility] 2021-10-25 2021-10-25 Patient Juan [facility] 1.2.840.114 [id number] Univers 00:00:00 00:00:00 Secure Msg Vijay HEALTH 350.1.13.10 ity of [place] 4.2.7.2.686 [place] as TOÑO?BLEA [id number] [address] OFFICE [facility] 2021-10-25 2021-10-25 Telephone Juan [facility] 1.2.933.858 [id number] Univers 00:00:00 00:00:00 Vijay HEALTH 350.1.13.10 it y of [place] 4.2.7.2.686 [place] as TOÑO?BLEA [id number] [facility] 044 [facility] OFFICE [facility] 2021-10-25 2021-10-25 Telephone Rina [facility] 1.2.840.114 [id number] Univers 00:00:00 00:00:00 Ang Db HEALTH 350.1.13.10 it y of Urgent Care [place] 4.2.7.2.686 [place] TOÑO?BLEA [id number] [address] MEDICAL OFFICE [facility] 2021-10-25 2021-10-25 Telephone Nurse, Filippo [facility] 1.2.840.114 [id number] Univers 00:00:00 00:00:00 Db Urgent HEALTH 350.1.13.10 ity of [facility] 4.2.7.2.686 [place] as TOÑO?BLEA [id number] [address] MEDICAL OFFICE [facility] 2021-10-24 2021-10-24 Outpatient Farzana OMALLEY [facility] [id number] Univers 10:15:00 10:15:00 ROMULO itFormerly [facility] 2021-10-24 2021-10-24 Outpatient Farzana OMALLEY [facility] [id number] Univers 10:15:00 10:15:00 [facility] 2021-10-11 2021-10-11 Outpatient R LYSSA [facility] [id number] Univers 09:30:00 09:30:00 [facility] 2021-10-10 2021-10-10 Outpatient Farzana VARGAS PRASANNA [facility] [id number] Univers 13:30:00 13:30:00 ity [facility] 2021-10-10 2021-10-10 [facility] [id number] Univers 13:30:00 13:30:00 ity [facility] 2021-10-10 2021-10-10 Outpatient R ALICIA [facility] [id number] Univers 13:30:00 13:30:00 ity [facility] 2021-10-10 2021-10-10 Outpatient R ALICIA PRASANNA [facility] [id number] Univers 13:30:00 13:30:00 ity [facility] 2021-10-10 2021-10-10 Outpatient Farzana VARGAS PRASANNA [facility] [id number] Univers 13:30:00 13:30:00 ity [facility] 2021-10-10 2021-10-10 Outpatient R ALICIA [facility] [id number] Univers 13:30:00 13:30:00 ity [facility] 2021-10-102021-10-10 Outpatient R PRASANNA VARGAS [facility] [id number] Univers 13:30:00 13:30:[address] [facility] 2021-10-05 2021-10-05 Patient Robb [facility] 1.2.840.114 [id number] Univers 00:00:00 00:00:00 Secure Msg Kendal Amaral HEALTH 350.1.13.10 ity of [place] 4.2.7.2.686 [place] TOÑO?BLEA [id number] [address] MEDICAL OFFICE [facility] 2021-10-05 2021-10-05 Patient Robb [facility] 1.2.840.114 [id number] Univers 00:00:00 00:00:00 Secure Msg Kendal Amaral HEALTH 350.1.13.10 ity of [place] 4.2.7.2.686 [place] TOÑO?BLEA [id number] [address] OFFICE [facility] 2021-10-04 2021-10-04 Pre Visit HILARIO Rodriguez 1.2.459.268 [id number] Univers 00:00:00 00:00:00 Outreach Melia OMER 350.1.13.10 [place].2.[place] [phone] [facility] [address] [place] 2021-09-28 2021-09-28 Office [facility] 1.2.840.114 [id number] Univers 13:30:00 13:45:00 Visit Celina SAM 350.1.13.10 ity of [place] 4.2.7.2.686 [place] [id number] [facility] [address] [place] 2021-09-28 2021-09-28 Outpatient R APURVA [facility] [id number] Univers 13:30:00 13:30:00 CELINA lechuga [facility] 2021-09-28 2021-09-28 Outpatient R APURVA [facility] [id number] Univers 13:30:00 13:30:00 CELINA lechuga [facility] 2021-09-28 2021-09-28 Patient [facility] 1.2.840.114 [id number] Univers 00:00:00 00:00:00 Secure Msg Celina WATERSY 350.1.13.10 ity of [facility] 4.2.7.2.686 [place] [id number] [address] 2021-09-27 2021-09-27 Outpatient R DEYVI [facility] [id number] Univers 14:00:00 14:00:00 TETO [facility] 2021-09-27 2021-09-27 [facility] [id number] Univers 09:30:00 09:30:00 [facility] 2021-09-27 2021-09-27 Outpatient [facility] [id number] Univers 09:30:00 09:30:00 [facility] 2021-09-27 2021-09-27 Outpatient [facility] [id number] Univers 09:30:00 09:30:00 [facility] 2021-09-26 2021-09-26 Outpatient R AKINEVENSPE, [facility] [id number] Univers 10:45:00 10:45:00 CRICKETEMILIO lechuga [facility] 2021-09-26 2021-09-26 Outpatient R AKINSIPE, [facility] [id number] Univers 10:45:00 10:45:00 CRICKET maradiagay o [facility] 2021-09-26 2021-09-26 Patient [facility] 1..840.114 [id number] Univers 00:00:00 00:00:00 Secure Msg Vijay HEALTH 350.1.13.10 ity [facility] 4.2.7.2.686 [place] TOÑO?BLEA [id number] [address] MEDICAL OFFICE BUILDING 2021-09-26 2021-09-26 Patient Juan [facility] 1.2.840.114 [id number] Univers 00:00:00 00:00:00 Secure Msg Vijay HEALTH 350.1.13.10 ity of [place] 4.2.7.2.686 [place] as TOÑO?BLEA [id number] Me dicaliyah [facility] 044 [facility] OFFICE [facility] 2021-09-25 2021-09-25 Urgent Flaco Boyd [facility] 1.2.840. 114 [id number] Univers 10:20:00 11:10:42 Care Mitchell [facility] 350.1.13.10 ity of [place] 4.2.7.2.686 [place] as TOÑO?BLEA [id number] [facility] 370 [facility] OFFICE [facility] 2021-09-25 2021-09-25 Outpatient R [facility] [id number] Univers 10:20:00 11:10:42 [facility] 2021-09-25 2021-09-25 Outpatient R [facility] [id number] Univers 10:20:00 10:20:00 [facility] o [facility] 2021-09-25 2021-09-25 Outpatient R PRASANNA VARGAS [facility] [id number] Univers 10:00:00 10:00:[address] [facility] 2021-09-25 2021-09-25 Telephone [facility] 1.2.840.114 [id number] Univers 00:00:00 00:00:00 [facility] 350.1.13.10 i ty of [place] 4.2.7.2.686 [place] as TOÑO?BLEA [phone] [address] OFFICE [facility] 2021-09-25 2021-09-25 Patient Prasanna Vargas [facility] 1.2.772.014 [id number] Univers 00:00:00 00:00:00 Secure Msg Cam [place] 350.1.13.10 ity of [place] 4.2.7.2.[place] [id number] [facility] 134 [facility] 2021-09-25 2021-09-25 Telephone [facility] 1.2.840.114 [id number] Univers 00:00:00 00:00:00 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 350.1.13.10 ity of [facility] 4.2.7.2.686 [place] as MATERNAL [phone] Med ical & CHILD [address] [place] [address] 2021-09-25 2021-09-25 Telephone Apurva [facility] [id number] Univers 00:00:00 00:00:00 Celina SAM 350.1.13.10 ity of [facility] 4[place]2.7.2.686 [place] [phone] [address] 2021-09-15 2021-09-15 Patient [facility] 1.2.840.114 [id number] Univers 00:00:00 00:00:00 Secure Msg Kendal Munir HEALTH 350.1.13.10 ity of [place] 4.2.7.2.686 Martin as TOÑO?BLEA [phone] [address] OFFICE [facility] 2021-09-15 2021-09-15 Patient [facility] 1.2.840.114 [id number] Univers 00:00:00 00:00:00 Secure Msg Knedal Amaral HEALTH 350.1.13.10 ity of [place] 4.2.7.2.686 Martin as TOÑO?BLEA [phone] [address] OFFICE [facility] 2021-09-15 2021-09-15 Patient Robb [facility] 1.2.840.114 [id number] Univers 00:00:00 00:00:00 Secure Msg Kendal Amaral HEALTH 350.1.13.10 ity of [place] 4.2.7.2.686 Martin as TOÑO?BLEA [phone] [address] MEDICAL OFFICE [facility] 2021-09-14 2021-09-14 Patient Juan [facility] 1.2.840.114 [id number] Univers 00:00:00 00:00:00 Secure Msg Vijay HEALTH 350.1.13.10 ity of [place] 4.2.7.2.686 Martin as TOÑO?BLEA [phone] [address] OFFICE [facility] 2021-09-12 2021-09-12 [facility] [id number] Univers 10:30:00 10:30:00 CELINA lechuga [facility] 2021-09-12 2021-09-12 Outpatient R APURVA [facility] [id number] Univers 10:30:00 10:30:00 CELINA hirenchino [facility] 2021-09-12 2021-09-12 Patient Meet [facility] 1.2.840.114 [id number] Univers 00:00:00 00:00:00 Secure Msg Daniel MULTISPEC 350.1.13.10 ity of [place] 4.2.7.2.686 [place] [facility] [phone] [facility] AND [address] [facility] 2021-09-12 2021-09-12 Orders Doctor JORDAN 1.2.840.114 [id number] Univers 00:00:00 00:00:00 Only Unassigned, YAZMIN 350.1.13.10 [facility] 4.2.7.2.686 [place] as [phone] [facility] [address] 2021-09-12 2021-09-12 Patient Juan [facility] 1.2.840.114 [id number] Univers 00:00:00 00:00:00 Secure Msg Vijay HEALTH 350.1.13.10 ity of [place] 4.2.7.2.686 Martin as TOÑO?BLEA [phone] Ri whit [address] MEDICAL OFFICE [facility] 2021-09-05 2021-09-05 Patient Juan [facility] 1.2.840.114 [id number] Univers 00:00:00 00:00:00 Secure Msg Vijay HEALTH 350.1.13.10 ity of [place] 4.2.7.2.686 [place] as TOÑO?BLEA [phone] Ri whit [address] MEDICAL OFFICE BUILDING 2021-09-04 2021-09-04 Patient Juan [facility] 1.2.840.114 [id number] Univers 00:00:00 00:00:00 Secure Msg Vijay HEALTH 350.1.13.10 ity of [place] 4.2.7.2.686 [place] as TOÑO?BLEA [phone] [address] MEDICAL OFFICE BUILDING 2021-08-25 2021-08-25 Telephone Aditi [facility] 1.2.840.114 [id number] Univers 00:00:00 00:00:00 Dania L HEALTH 350.1.13.10 it y of [place] 4.2.7.2.686 [place] as TOÑO?BLEA [phone] Ri whit [place] [address] MEDICAL OFFICE [facility] 2021-08-25 2021-08-25 Patient Juan [facility] 1.2.840.114 [id number] Univers 00:00:00 00:00:00 Secure Msg Vijay HEALTH 350.1.13.10 ity of [place] 4.2.7.2.686 [place] as TOÑO?BLEA [phone] Ri whit [place] 044 [facility] OFFICE [facility] 2021-08-24 2021-08-24 Telephone Juan [facility] 1.2.658.776 [id number] Univers 00:00:00 00:00:00 Vijay HEALTH 350.1.13.10 it y of [place] 4.2.7.2.686 [place] as TOÑO?BLEA [phone] Ri whit [place] 044 [facility] OFFICE [facility] 2021-08-24 2021-08-24 Patient Juan [facility] 1.2.840.114 [id number] Univers 00:00:00 00:00:00 Secure Msg Vijay HEALTH 350.1.13.10 ity of [place] 4.2.7.2.686 [place] as TOÑO?BLEA [phone] Ri whit [place] [address] [place] [address] OFFICE [facility] 2021-08-23 2021-08-23 Patient Juan [facility] 1.2.840.114 [id number] Univers 00:00:00 00:00:00 Secure Msg Vijay HEALTH 350.1.13.10 ity of [place] 4.2.7.2.686 [place] TOÑO?BLEA [phone] Ri whit [place] [address] [place] [address] OFFICE [facility] 2021-08-23 2021-08-23 Telephone Juan [facility] 1.2.539.404 [id number] Univers 00:00:00 00:00:00 Vijay HEALTH 350.1.13.10 it y of [place] 4.2.7.2.686 [place] as TOÑO?BLEA [phone] Me whit [place] [address] [place] [address] OFFICE [facility] 2021-08-22 2021-08-22 Telephone [facility] 1.2.473.574 [id number] Univers 00:00:00 00:00:00 Vijay HEALTH 350.1.13.10 it y of [place] 4.2.7.2.686 [place] as TOÑO?BLEA [phone] Ri whit [address] OFFICE [facility] 2021-08-22 2021-08-22 Patient Jaja [facility] 1.2.840.114 [id number] Univers 00:00:00 00:00:00 Secure Msg Hallie HEALTH 350.1.13.10 [facility] 4.2.7.2.686 [place] TOÑO?BLEA [phone] Ri whit [address] OFFICE [facility] 2021-08-18 2021-08-18 Telephone [facility] 1.2.959.063 [id number] Univers 00:00:00 00:00:00 Vijay HEALTH 350.1.13.10 it y of [place] 4.2.7.2.686 [place] as TOÑO?BLEA [phone] Ri whit MIN[address] 2021-08-17 2021-08-17 Outpatient Farzana MIXON [facility] [id number] Univers 09:00:00 09:00:00 CELINA itchino [facility] 2021-08-17 2021-08-17 Outpatient Farzana MIXON [facility] [id number] Univers 09:00:00 09:00:00 CELINA ankush [facility] 2021-08-16 2021-08-16 Patient [facility] 1.2.840.114 [id number] Univers 00:00:00 00:00:00 Secure Msg Vijay HEALTH 350.1.13.10 ity [facility] 4.2.7.2.686 [place] TOÑO?BLEA [phone] Ri whit [address] OFFICE [facility] 2021-08-15 2021-08-15 Office [facility] 1.2.840.114 [id number] Univers 15:30:00 16:16:42 Visit [facility] 350.1.13.10 it y of [place] 4.2.7.2.686 [place] as TOÑO?BLEA [id number] Ri whit [address] MEDICAL OFFICE BUILDING 2021-08-15 2021-08-15 Outpatient Farzana KIM [facility] [id number] Univers 15:30:00 16:16:42 [facility] 2021-08-15 2021-08-15 Outpatient Farzana KIM [facility] [id number] Univers 15:30:00 15:30:00 [facility] 2021-08-15 2021-08-15 Outpatient Farzana KIM [facility] [id number] Univers 15:30:00 15:30:00 [facility] 2021-08-15 2021-08-15 Outpatient [facility]zana [facility] [id number] Univers 15:30:00 15:30:00 [facility] 2021-08-15 2021-08-15 Emergency X [facility] ERT [id number] Univers 09:27:00 12:26:00 MAURA lechuga [facility] 2021-08-15 2021-08-15 Emergency [facility] 1.2.400.528 [id number] Univers 09:27:00 12:26:00 Maura LAWSON 350.1.13.10 ity [facility] 4.2.7.2.686 [id number] [address] 2021-08-15 2021-08-15 Emergency Aj [facility]ADZ[facility] ERT [id number] Univers 09:27:00 12:26:00 MAURA lechuga [facility] 2021-08-14 2021-08-14 Outpatient Farzana MARTINEZ [facility] [id number] Univers 13:25:00 23:59:00 VIJAY lechuga [facility] 2021-08-14 2021-08-14 Outpatient Farzana MARTINEZ [facility] [id number] Univers 13:25:00 23:59:00 VIJAY lechuga [facility] 2021-08-14 2021-08-14 Outpatient Farzana MARTINEZ [facility] [id number] Univers 13:25:00 13:25:00 VIJAY lechuga [facility] 2021-08-14 2021-08-14 Outpatient R JUAN [facility] [id number] Univers 12:19:07 13:24:00 VIJAY lechuga [facility] 2021-08-14 2021-08-14 Outpatient R JUAN [facility] [id number] Univers 12:19:07 13:24:00 VIJAY lechuga [facility] 2021-08-14 2021-08-14 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, Ang [facility] 1.2.840.1 14 [id number] Univers 12:30:00 13:01:24 Visit Vijay Martinez 350.1.13.10 ity of [place] 4.2.7.2.686 [place] TOÑO?BLEA [id number] [facility]OR 353 [facility] OFFICE [facility] 2021-08-14 2021-08-14 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, Ang - [facility] 1.2.840.1 14 [id number] Univers 12:30:00 12:45:00 Visit Vijay Martinez 350.1.13.10 ity of [place] 4.2.7.2.686 [place] as TOÑO?BLEA [phone] [facility] MOE 353 [facility] OFFICE [facility] 2021-08-14 2021-08-14 Office Juan [facility] 1.2.840.114 [id number] Univers 11:30:00 12:31:12 Visit Vijay BAILEY 350.1.13.10 it y of [place] 4.2.7.2.686 [place] as TOÑO?BLEA [phone] Ri whit [place] 044 [facility] OFFICE [facility] 2021-08-14 2021-08-14 Outpatient R JUAN [facility] [id number] Univers 11:30:00 12:31:12 VIJAY lechuga [facility] 2021-08-14 2021-08-14 Patient Juan [facility] 1.2.840.114 [id number] Univers 00:00:00 00:00:00 Secure Msg Vijay HEALTH 350.1.13.10 ity of [place] 4.2.7.2.686 [place] as TOÑO?BLEA [phone] Me whit [place] [address] MEDICAL OFFICE [facility] 2021-08-09 2021-08-09 Outpatient R JUDY [facility] [id number] Univers 14:45:00 14:45:00 ADÁN ankush [facility] 2021-08-09 2021-08-09 Telephone Víctorkathy [facility] 1.2.443.259 [id number] Univers 00:00:00 00:00:00 Vjiay HEALTH 350.1.13.10 it y of [place] 4.2.7.2.686 [place] as TOÑO?BLEA [phone] Ri whit MINOR 044 [facility] 2021-08-08 2021-08-08 Outpatient R JUAN [facility] [id number] Univers 11:30:00 23:59:00 VIJAY hirenchino [facility] 2021-08-08 2021-08-08 Hospital [facility] 1.2.840.114 [id number] Univers 11:30:00 23:59:00 Encounter Vijay [facility] 350.1.13.10 ity of [place] 4.2.7.2.686 [place] as TOÑO?BLEA [id number] Ri whit [place] 808 [facility] 2021-08-08 2021-08-08 Outpatient R JUAN [facility] [id number] Univers 11:15:00 11:15:00 VIJAY hirenchino [facility] 2021-08-08 2021-08-08 Outpatient R JUAN [facility] [id number] Univers 11:00:00 11:00:00 VIJAY hirenchino [facility] 2021-08-08 2021-08-08 Patient Doctor JORDAN 1.2.840.114 [id number] Univers 00:00:00 00:00:00 Secure Msg Unassigned, YAZMIN 350.1.13.10 ity of [facility] 4.2.7.2.686 [place] as [phone] [address] 2021-08-07 2021-08-07 Office Juan [facility] 1.2.840.114 [id number] Univers 09:30:00 10:23:21 Visit Vijay HEALTH 350.1.13.10 it y [facility] 4.2.7.2.686 [place] TOÑO?BLEA [phone] Ri whit [address] OFFICE [facility] 2021-08-07 2021-08-07 Outpatient R JUAN [facility] [id number] Univers 09:30:00 10:23:21 VIJAY lechuga [facility] 2021-08-07 2021-08-07 Outpatient R JUAN [facility] [id number] Univers 09:30:00 09:30:00 VIJAY lechuga [facility] 2021-08-07 2021-08-07 Patient [facility] 1.2.840.114 [id number] Univers 00:00:00 00:00:00 Secure Msg Vijay HEALTH 350.1.13.10 ity of [place] 4.2.7.2.686 [place] as TOÑO?BLEA [id number] [address] 2021-08-07 2021-08-07 Patient [facility] 1.2.840.114 [id number] Univers 00:00:00 00:00:00 Secure Msg Vijay HEALTH 350.1.13.10 ity of [place] 4.2.7.2.686 [place] as TOÑO?BLEA [phone] [address] 2021-08-07 2021-08-07 Patient Apurva [facility] 1.2.840.114 [id number] Univers 00:00:00 00:00:00 Secure Msg Celina A FLACO 350.1.13.10 ity of [facility] 4.2.7.2.686 [place] [phone] [address] 2021-08-04 2021-08-04 Outpatient R SHADIA [facility] [id number] Univers 10:00:00 10:00:00 PETRA ity [facility] 2021-08-04 2021-08-04 Patient [facility] 1.2.840.114 [id number] Univers 00:00:00 00:00:00 Secure Msg Vijay HEALTH 350.1.13.10 ity of [place] 4.2.7.2.686 [place] as TOÑO?BLEA [id number] [address] MEDICAL OFFICE BUILDING 2021-08-03 2021-08-03 Office SOURAV Diaz 1.2.840.114 [id number] Univers 11:00:00 12:48:43 Visit Jayy Y 350.1.13.10 it y of [facility] 4.2.7.2.686 [place] as BANK [phone] [facility]. [address] 2021-08-03 2021-08-03 Outpatient R [facility] [id number] Univers 11:00:00 12:48:43 JAYYBELKYS lechuga [facility] 2021-08-03 2021-08-03 Outpatient R [facility] [id number] Univers 11:00:00 11:00:00 JAYY [facility] 2021-08-03 2021-08-03 Patient Apurva [facility] 1.2.840.114 [id number] Univers 00:00:00 00:00:00 Secure Msg Celina SAM 350.1.13.10 ity of [facility] 4.2.7.2.686 [place] [phone] [address] 2021-08-02 2021-08-02 Telephone Juan [facility] 1.2.452.024 [id number] Univers 00:00:00 00:00:00 [facility] 350.1.13.10 it y of [place] 4.2.7.2.686 [place] as TOÑO?BLEA [phone] [address] MEDICAL OFFICE [facility] 2021-07-21 2021-07-21 Outpatient R DARRION WYATT [facility] [id number] Univers 08:00:00 08:52:53 DARRION WYATT itchino [facility] 2021-07-17 2021-07-17 Outpatient R JUAN [facility] [id number] Univers 11:30:00 11:30:00 VIJAY lechuga [facility] 2021-06-19 2021-06-19 Telephone [facility] 1.2.468.955 [id number] Univers 00:00:00 00:00:00 Vijay [facility] 350.1.13.10 it y of [place] 4.2.7.2.686 [place] as TOÑO?BLEA [phone] [facility] [place] 044 [facility] OFFICE [facility] 2021-06-09 2021-06-09 Telephone [facility] 1.2.030.418 [id number] Univers 00:00:00 00:00:00 Qiangraheel [place] 350.1.13.10 ity of [facility] 4.2.7.2.[place] [phone] Ri whit [facility] 059 [facility] 2021-06-06 2021-06-06 Outpatient R [facility] [id number] Univers 11:15:00 11:15:00 TETO [facility] 2021-06-06 2021-06-06 Outpatient R [facility] [id number] Univers 11:15:00 11:15:00 [facility] 2021-06-02 2021-06-02 Outpatient R [facility] [id number] Univers 15:45:00 15:45:00 WONDIFUL ity o f [facility] 2021-05-31 2021-05-31 Outpatient R [facility] [id number] Univers 10:00:00 10:46:31 VIJAY chino [facility] 2021-05-31 2021-05-31 Office [facility] ..840.114 [id number] Univers 10:00:00 10:46:31 Visit [facility] 350.1.13.10 it y of [place] 4.2.7.2.686 [place] TOÑO?BLEA [phone] [address] OFFICE [facility] 2021-05-31 2021-05-31 Outpatient R [facility] [id number] Univers 10:00:00 10:46:31 VIJAY chino [facility] 2021-05-31 2021-05-31 Orders Doctor ORTEGA 1.2.840.114 [id number] Univers 00:00:00 00:00:00 Only Unassigned, YAZMIN 350.1.13.10 ity of [facility] 4.2.7.2.686 [place] as [id number] [address] 2021-05-26 2021-05-26 Telephone Yaneli [facility] 1.2.281.871 [id number] Univers 00:00:00 00:00:00 Skylar A HEALTH 350.1.13.10 i ty of [facility] 4.2.7.2.686 [place] as TOÑO?BLEA [phone] [facility] 044 [facility] OFFICE [facility] 2021-05-26 2021-05-26 Patient Prasanna Vargas [facility] 1.2.355.852 [id number] Univers 00:00:00 00:00:00 Secure Msg Cam LULU 350.1.13.10 ity of [place].7.2.[place] [phone] [facility] 134 [facility] 2021-05-25 2021-05-25 Telemedici [facility] 1.2.840.114 [id number] Univers 14:00:00 14:30:00 ne Visit Skylar Cannon HEALTH 350.1.13.10 ity of [place] 4.2.7.2.686 [place] TOÑO?BLEA [id number] [address] 2021-05-25 2021-05-25 Outpatient R [facility] [id number] Univers 14:00:00 14:00:00 SKYLAR hirenchino [facility] 2021-05-25 2021-05-25 Outpatient R [facility] [id number] Univers 14:00:00 14:00:00 SKYLAR ity [facility] 2021-05-24 2021-05-24 Telephone [facility] 1.2.030.108 [id number] Univers 00:00:00 00:00:00 Sendil Cuate [place] 350.1.13.10 ity of [facility] 4.2.7.2.[place] [phone] [facility] 059 [facility] 2021-05-23 2021-05-23 Outpatient R [facility] [id number] Univers 10:00:00 10:00:[address] [facility] 2021-05-23 2021-05-23 Outpatient R [facility] [id number] Univers 10:00:00 10:00:00 ity [facility] 2021-05-16 2021-05-16 Outpatient R DEYVI, [facility] [id number] Univers 09:00:00 09:00:00 ETTO ity [facility] 2021-05-12 2021-05-12 Orders Doctor JORDAN 1.2.840.114 [id number] Univers 00:00:00 00:00:00 Only Unassigned, YAZMIN 350.1.13.10 ity of [facility] 4.2.7.2.686 [place] as [id number] [address] 2021-05-10 2021-05-10 Outpatient R [facility] [id number] Univers 13:00:00 13:00:00 WONDIFUL ity o f [facility] 2021-05-10 2021-05-10 Outpatient R [facility] [id number] Univers 13:00:00 13:00:00 WONDIFUL ity o f [facility] 2021-05-09 2021-05-09 Telephone Prasanna Vargas [facility] 1.2.840.114 [id number] Univers 00:00:00 00:00:00 Cam LULU 350.1.13.10 i ty of [place] 4.2.7.2.[place] [phone] Ri dical NAL 134 [facility] 2021-05-09 2021-05-09 Patient [facility] 1.2.840.114 [id number] Univers 00:00:00 00:00:00 Secure Mslaila LAWSON 350.1.13.10 ity of [facility] 4.2.7.2.[place] [phone] Ri dical NAL 059 [facility] 2021-05-08 2021-05-08 Outpatient R [facility] [id number] Univers 16:00:00 16:00:00 JE lechuga [facility] 2021-05-08 2021-05-08 Outpatient R YASMEEN [facility] [id number] Univers 16:00:00 16:00:00 JEDAYANA lechuga [facility] 2021-05-08 2021-05-08 [facility] 1.2.840.114 [id number] Univers 00:00:00 00:00:00 Secure Msg Rad [place] 350.1.13.10 ity of [facility] 4.2.7.2.[place] [phone] Ri dical NAL 059 [facility] 2021-05-08 2021-05-08 Patient [facility] 1.2.840.114 [id number] Univers 00:00:00 00:00:00 Secure Msg Rad [place] 350.1.13.10 ity of [facility] 4.2.7.2.[place] [id number] Ri dical NAL 059 [facility] 2021-05-03 2021-05-03 Outpatient R [facility] [id number] Univers 11:15:36 23:59:[address] o f [facility] 2021-05-03 2021-05-03 [facility] 1.2.840.114 [id number] Univers 11:15:36 23:59:00 Encounter Reji [place] 350.1.13.10 ity of [place] 4.2.7.2.[place] [phone] Ri dical NAL 846 [facility] 2021-05-03 2021-05-03 Telephone Crist[facility] 1.2.840.114 [id number] Univers 00:00:00 00:00:00 Wondiful A HEALTH 350.1.13.10 ity of [place] 4.2.7.2.686 [place] as TOÑO?BLEA [phone] Ri dical KNEY 044 [facility] 2021-05-02 2021-05-02 Telephone [facility] 1.2.223.563 [id number] Univers 00:00:00 00:00:00 Sendzohra LAW[place] 350.1.13.10 ity of [place] 4.[place].7.2.[place] [phone] [place] 273689 [facility] 2021-05-02 2021-05-02 Patient Cristina [facility] 1.2.840.114 [id number] Univers 00:00:00 00:00:00 Secure Msg Wondiful A HEALTH 350.1.13.10 ity of [facility] 4.2.7.2.686 [place] TOÑO?BLEA [phone] [address] OFFICE [facility] 2021-05-02 2021-05-02 Telephone Cristina [facility] 1.2.840.114 [id number] Univers 00:00:00 00:00:00 Wondiful A HEALTH 350.1.13.10 ity of [facility] 4.2.7.2.686 [place] TOÑO?BLEA [phone] [address] OFFICE [facility] 2021-05-02 2021-05-02 Patient Ponce, [facility] 1.2.840.114 [id number] Univers 00:00:00 00:00:00 Secure Msg Rad [place] 350.1.13.10 ity of [facility] 4.2.7.2.[place] [phone] [address] 2021-04-27 2021-04-27 Emergency X ALFONSODZ[facility] ERT [id number] Univers 14:24:00 15:49:[address] [facility] 2021-04-27 2021-04-27 Emergency Alfonso [facility] 1.2.840.114 [id number] Univers 14:24:00 15:49:00 Maggie LAW[place] 350.1.13.10 ity of [facility] 4.2.7.2.[place] AMARILL[place] [id number] [address] 2021-04-27 2021-04-27 Laboratory Only, Ang Db Test [facility] 1.2.8 40.114 [id number] Univers 11:15:00 11:30:00 Only Unknown, Attending HEALTH 350.1.13.10 ity of [place] 4.2.7.2.686 [place] TOÑO?BLEA [phone] [facility] [place] 370 [facility] OFFICE [facility] 2021-04-27 2021-04-27 Outpatient R ELIZABETH [facility] [id number] Univers 11:15:00 11:15:[address] [facility] 2021-04-27 2021-04-27 Orders Doctor JORDAN 1.2.840.114 [id number] Univers 00:00:00 00:00:00 Only Unassigned, YAZMIN 350.1.13.10 ity of [place] [facility] 4.2.7.2.686 [place] as [phone] [address] 2021-04-20 2021-04-20 Outpatient R JUSTINE [facility] [id number] Univers 15:00:00 15:00:[address] [facility] 2021-04-13 2021-04-13 Patient [facility] 1.2.840.114 [id number] Univers 00:00:00 00:00:00 Secure Msg Wondiful A HEALTH 350.1.13.10 ity of [facility] 4.2.7.2.686 [place] TOÑO?BLEA [phone] Ri dicaliyah [place] 044 [facility] OFFICE [facility] 2021-04-12 2021-04-12 Telephone Cristina [facility] 1.2.840.114 [id number] Univers 00:00:00 00:00:00 Wondiful [facility] 350.1.13.10 [facility] 4.2.7.2.686 [place] TOÑO?BLEA [phone] Ri dicaliyah [place] 044 [facility] OFFICE [facility] 2021-03-27 2021-03-27 Telephone Prasanna Vargas [facility] 1.2.840.114 [id number] Univers 00:00:00 00:00:00 Cam [place] 350.1.13.10 i ty [place]2.[place].2.[place] [phone] Ri whit [facility] 134 [facility] 2021-03-23 2021-03-23 Outpatient R KAVYA [facility] [id number] Univers 13:30:00 13:30:00 [place] ity o f [facility] 2021-03-23 2021-03-23 Outpatient R KAVYA [facility] [id number] Univers 13:30:00 13:30:00 [place] ity o f [facility] 2021-03-22 2021-03-22 Outpatient R NEHEMIAH MEEKSINEz [facility] [id number] Univers 09:20:00 09:20:00 ATAADITYA BRAGA itchino [facility] 2021-03-22 2021-03-22 [facility] [id number] Univers 09:20:00 09:20:00 [facility] 2021-03-20 2021-03-20 Outpatient R CRISTINA [facility] [id number] Univers 00:00:00 00:00:00 WONDIFUL ity o [facility] 2021-03-18 2021-03-18 [facility] 1.2.840.114 [id number] Univers 00:00:00 00:00:00 Management Wondiful [facility] 350.1.13.10 ity of [place] 4.2.7.2.686 [place] as TOÑO?BLEA [id number] [facility] [address] [place] MEDICAL OFFICE [facility] 2021-03-16 2021-03-16 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, [place] - [facility] 1.2.840.1 [id number] Univers 11:16:07 11:31:07 Visit CristinaBrianlgbonnie [facility] 350.1.13.1 0 ity of [place] 4.2.7.2.686 [place] as TOÑO?BLEA [phone] [facility] [address] [place] MEDICAL OFFICE [facility] 2021-03-16 2021-03-16 Outpatient R CRISTINA [facility] [id number] Univers 11:30:00 11:30:00 W[address] ity o f [facility] 2021-03-16 2021-03-16 [facility] [id number] Univers 11:00:00 11:14:[address] o [address] [facility] 2021-03-16 2021-03-16 Office CristinaDZILTH[facility] [facility] 1.2.840.114 [id number] Univers 10:00:58 11:14:45 Visit Wondiful A HEALTH 350.1.13.10 ity of [place] 4.2.7.2.686 Martin as TOÑO?BLEA [phone] [address] OFFICE [facility] 2021-03-16 2021-03-16 Patient [facility] 1.2.840.114 [id number] Univers 00:00:00 00:00:00 Secure Msg Wondiful [facility] 350.1.13.10 ity of [place] 4.2.7.2.686 Martin as TOÑO?BLEA [phone] [address] OFFICE [facility] 2021-03-02 2021-03-02 [facility] [id number] Univers 16:15:00 16:15:00 WONDIFUL ity o f [facility] 2021-02-28 2021-02-28 Outpatient R MITCHELL [facility] [id number] Univers 18:30:00 18:30:00 ILEANA itchino [facility] 2021-02-28 2021-02-28 [facility] 1..840.114 [id number] Univers 00:00:00 00:00:00 Wondiful A [facility] [id number] ity of [place] [id number] [place] as Toño?Blea [phone] [address] Office [facility] 2021-02-27 2021-02-27 Outpatient [facility] [id number] Univers 09:00:00 09:00:00 AMELIA itchino [facility] 2021-02-23 2021-02-23 Telephone [facility] 1..840.114 [id number] Univers 00:00:00 00:00:00 Wondiful A [facility] [id number] ity of [place] [id number] Martin as Toño?Blea [phone] Ri whit [place] [address] [facility] [facility] 2021-02-10 2021-02-10 Emergency Kaycee Méndez [facility] 1.2.840.114 [id number] Univers 18:12:00 23:39:00 Sharlene [place] 350.1.13.10 i ty of [place].2.7.2.686 [place] [phone] [facility] [address] [place] 2021-02-09 2021-02-09 Hospital [facility] 1.2.563.916 [id number] Univers 13:40:00 23:59:00 Encounter Wondiful [facility] [id number] ity of [place] 4.2.7.2.686 [place] as Toño?Blea [phone] Ri whit [place] [address] [facility] 2021-02-09 2021-02-09 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, Ang - Db [facility] 1.2.840.1 [id number] Univers 13:49:05 14:04:05 Visit Brian Evanslgbonnie [facility] 350.1.13.1 0 ity of [place] 4.2.7.2.686 [place] as Toño?Blea [phone] Ri whit [place] [address] [facility] 2021-02-09 2021-02-09 Office [facility] 1.2.840.114 [id number] Univers 12:23:13 13:47:12 Visit Wondiful [facility] Health 350.1.13.10 ity of [place] 4.2.7.2.686 [place] as Toño?Blea [phone] Ri whit [place] [address] [facility] 2021-02-09 2021-02-09 Outpatient R CRISTINA [facility] [id number] Univers 13:00:00 13:00:00 W[address] ity o f [facility] 2021-02-08 2021-02-08 Outpatient R ADITYA MEEKS [facility] [id number] Univers 10:20:00 10:20:[address] [facility] 2021-02-02 2021-02-02 Outpatient R YANELI [facility] [id number] Univers 10:30:00 10:30:00 SKYLAR lechuga [facility] 2021-02-02 2021-02-02 Telephone [facility] 1.2.840.114 [id number] Univers 00:00:00 00:00:00 Wondiful A Health 350.1.13.10 ity of [place] 4.2.7.2.686 Martin as Toño?Blea [phone] [facility] mkii [address] [place] [facility] 2021-02-01 2021-02-01 Outpatient [facility] [id number] Univers 08:30:00 08:30:00 SKYLAR lechuga [facility] 2021-01-31 2021-01-31 Urgent [facility] 1.2.840.114 [id number] Univers 18:44:04 19:41:26 Care [facility] 350.1.13.10 i ty of [place] 4.2.7.2.686 [place] as Toño?Blea [phone] [facility] miki [address] [facility] Office [facility] 2021-01-31 2021-01-31 Outpatient R [facility] [id number] Univers 19:00:00 19:00:00 [address]ACO ity o f [facility] 2021-01-31 2021-01-31 Telephone [facility] 1.2.840.114 [id number] Univers 00:00:00 00:00:00 Wondiful [facility] Health 350.1.13.10 ity of [place] 4.2.7.2.686 [place] as Toño?Blea [phone] [facility] [place] [facility] 2021-01-30 2021-01-30 Telephone [facility] 1.2.124.103 [id number] Univers 00:00:00 00:00:00 Rad Metcalfton 350.1.13.10 it[place] of [place].7.2.[place] [phone] Ri dical nal 059 [facility] 2021-01-26 2021-01-26 Outpatient [facility] [id number] Univers 14:00:00 14:00:00 SENDIL itFormerly [facility] 2021-01-25 2021-01-25 Outpatient R [facility] [id number] Univers 15:00:00 15:00:00 ity [facility] 2021-01-20 2021-01-20 Telemedici [facility] 1.2.840.114 [id number] Univers 16:51:22 17:12:41 ne Visit Skylar Bailey 350.1.13.10 ity [facility] 4.2.7.2.686 [place] Toño?Blea [phone] [address] Medical Office Building 2021-01-20 2021-01-20 Outpatient R [facility] [id number] Univers 16:30:00 16:30:00 SKYLAR [facility] 2021-01-19 2021-01-19 Outpatient [facility] [id number] Univers 10:15:00 10:15:00 KAYLEY [facility] 2021-01-14 2021-01-14 JORDAN Guzman 1.2.840.114 [id number] Univers 00:00:00 00:00:00 Management Kassandra ARCE 350.1.13.10 ity [facility] 4.2.7.2.686 [place] as [phone] [facility] [address] 2021-01-12 2021-01-12 Emergency [facility] 1.2.622.325 [id number] Univers 16:10:00 19:45:00 Karin Lawson 350.1.13.10 i ty [facility] 4.2.7.2.686 [place] [facility] [phone] [facility] [address] 2021-01-12 2021-01-12 Outpatient Farzana [facility] [id number] Univers 15:20:00 15:20:00 ILEANA [facility] 2021-01-12 2021-01-12 Urgent Elizabeth Bjjose [facility] 1.2.840.114 [id number] Univers 14:46:57 15:06:57 Ileana Beth 350.1.13.10 ity of [place] 4.2.7.2.686 [place] as Toño?Blea [phone] [address] Office Building 2020-12-26 2020-12-26 Outpatient R PONCE [facility] [id number] Univers 15:30:00 16:13:32 SENDIL ity [facility] 2020-12-26 2020-12-26 [facility] 1.2.840.114 [id number] Univers 15:30:00 16:13:32 Visit Sendil Cuate LAWSON 350.1.13.10 ity of [place] 4.2.7.2.686 [place] [phone] Ri dicnj NAL 9 [facility] 2020-12-26 2020-12-26 Office [facility] 1.2.840.114 [id number] Univers 15:00:32 16:13:32 Visit Sendky Cuate Lawson 350.1.13.10 ity [facility] 4.2.7.2.686 [place] [phone] Ri dicnj nal [address] [facility] 2020-12-26 2020-12-26 Outpatient R PONCE [facility] [id number] Univers 15:30:00 15:30:00 SENDIL itFormerly [facility] 2020-11-22 2020-11-22 Outpatient R APURVA [facility] [id number] Univers 11:00:00 11:00:00 CELINA lechuga [facility] 2020-11-10 2020-11-10 Urgent Alissa Collins [facility] 1.2.840.114 [id number] 18:42:46 19:53:43 [facility] 350.1.13.10 [place] 4.2.7.2.686 Professio [phone] nal 0[address] Office Building One 2020-11-10 2020-11-10 Outpatient R [facility] [id number] Univers 19:00:00 19:00:[address] [facility] 2020-10-31 2020-10-31 Emergency Kaycee Méndez [facility] 1.2.840.114 [id number] 18:52:00 22:15:00 Sharlene Lulu 350.1.13.10 [place] 4.2.7.2.686 [place] [phone] [id number] 2020-10-31 2020-10-31 Outpatient R NATASHA [facility] [id number] Univers 19:00:00 19:00:00 CARI lechuga o f [facility] 2020-10-31 2020-10-31 Orders Doctor JORDAN 1.2.840.114 [id number] 00:00:00 00:00:00 Only Unassigned, YAZMIN 350.1.13.10 [facility] [id number] [id number] 2020-10-20 2020-10-20 Emergency Kaycee Méndez [facility] 1.2.840.114 [id number] 14:02:00 17:13:00 Sharlene Lawson 350.1.13.10 [place] 4.2.7.2.686 [place] [phone] 084 2020-10-14 2020-10-14 Hospital Prasanna Vargas [facility] 1.2.840.114 [id number] 10:00:00 23:59:00 Encounter Jm [place] 350.1.13.10 [place] 4.2.7.2.686 [place] [phone] 806 2020-10-14 2020-10-14 Outpatient [facility]zana [facility] [id number] Univers 13:30:00 13:30:00 CELINA lechuga [facility] 2020-10-09 2020-10-09 Emergency [facility] 1.2.908.499 [id number] 12:00:00 15:57:00 Anna Lawson 350.1.13.10 [place] 4.2.7.2.686 [place] [phone] 084 2020-10-06 2020-10-06 Office VargasPrasanna [facility] 1.2.910.853 [id number] 08:53:00 09:46:44 Visit Jm Lawson 350.1.13.10 [place] 4.2.7.2.[address] Profess[phone] 2020-10-062020-10-06 Outpatient R PRASANNA VARGAS [facility] [id number] Univers 09:30:00 09:30:00 [facility] 2020-10-04 2020-10-04 Outpatient R APURVA [facility] [id number] Univers 14:00:00 14:00:[facility] 2020-09-30 2020-09-30 Outpatient R APURVA [facility] [id number] Univers 10:30:00 10:30:00 [facility] 2020-09-29 2020-09-29 Outpatient R JASPAL [facility] [id number] Univers 13:45:00 13:45:00 PREET [facility] 2020-09-06 2020-09-06 Outpatient R PRASANNA VARGAS [facility] [id number] Univers 15:30:00 15:30:00 [facility] 2020-09-02 2020-09-02 Outpatient R DARRION WYATT [facility] [id number] Univers 15:40:00 15:40:00 DARRION WYATT [facility] 2020-08-31 2020-08-31 Outpatient Farzana SERRA [facility] [id number] Univers 10:30:00 10:30:00 SENDIL [facility] 2020-08-18 2020-08-18 Outpatient Farzana VARGASPRASANNA [facility] [id number] Univers 09:30:00 09:30:00 [facility] 2020-08-11 2020-08-11 Outpatient Farzana VARGASPRASANNA [facility] [id number] Univers 13:30:00 13:30:00 [facility] 2020-08-04 2020-08-04 Outpatient R JUSTINE [facility] [id number] Univers 14:00:00 14:00:00 SCOTT [facility] 2020-07-28 2020-07-28 Outpatient Farzana SERRA [facility] [id number] Univers 10:30:00 10:30:00 SENDIL [facility] 2020-06-30 2020-06-30 Outpatient R CRISTINA [facility] [id number] Univers 16:15:00 16:15:00 WONDIFUL ity o f [facility] 2020-06-17 2020-06-17 Outpatient DARRION QUIROZ [facility] [id number] Univers 15:00:00 15:00:00 DARRION WYATT [facility] 2020-06-16 2020-06-16 Outpatient Farzana SERRA [facility] [id number] Univers 15:30:00 15:30:00 SENDIL itFormerly [facility] 2020-06-09 2020-06-09 Outpatient R NAIFNI [facility] [id number] Univers 12:30:00 12:30:00 [facility] 2020-06-08 2020-06-08 Outpatient R NAIFNI [facility] [id number] Univers 08:00:00 08:00:00 [facility] 2020-06-02 2020-06-02 Outpatient Farzana SERRA [facility] [id number] Univers 09:00:00 09:00:00 SENDIL [facility] 2020-05-28 2020-05-28 Outpatient R NATASHA [facility] [id number] Univers 10:00:00 10:00:00 CARI ity o f [facility] 2020-05-24 2020-05-24 Outpatient R NAIFNI [facility] [id number] Univers 10:00:00 10:00:00 [facility] 2020-05-19 2020-05-19 Outpatient OSITO AMARO [facility] [id number] Univers 16:30:00 16:30:00 itFormerly [facility] 2020-05-17 2020-05-17 Outpatient DARRION QUIROZ [facility] [id number] Univers 13:00:00 13:00:00 DARRION WYATT [facility] 2020-05-16 2020-05-16 Outpatient Farzana EVANS [facility] [id number] Univers 16:00:00 16:00:00 WONDIFUL ity o f [facility] 2020-05-08 2020-05-08 Emergency X DREVER, [facility] ERT [id number] Univers 10:24:00 13:03:00 OLAMIDE [facility] 2020-05-03 2020-05-03 Outpatient R CRISTINA [facility] [id number] Univers 15:00:00 15:00:00 W[address]IF[address] ity o f [facility] 2020-04-30 2020-05-01 Outpatient X KAVYA [facility] JOSÉ MANUEL [id number] Univers 11:14:00 15:50:00 RODRIGUEZ [facility] 2020-04-30 2020-04-30 Outpatient R JASPAL [facility] [id number] Univers 10:20:00 10:20:00 ROSALES [facility] 2020-04-30 2020-04-30 Outpatient R JASPAL [facility] [id number] Univers 10:15:00 10:15:[facility] 2020-04-28 2020-04-28 Outpatient R OSITO HITCHCOCK [facility] [id number] Univers 14:00:00 14:00:00 itFormerly [facility] 2020-04-25 2020-04-25 Outpatient R CRISTINA, [facility] [id number] Univers 16:15:00 16:15:00 W[address]IF[address] ity o f [facility] 2020-04-18 2020-04-18 Outpatient R OSITO HITCHCOCK [facility] [id number] Univers 10:00:00 10:00:00 itFormerly [facility] 2020-04-15 2020-04-15 Outpatient R PONCE, [facility] [id number] Univers 10:30:00 10:30:00 SENDIL [facility] 2020-04-12 2020-04-13 Outpatient X MARICRUZ DELUNA [facility] NATTY [id number] Univers 13:38:00 16:25:00 itFormerly [facility] 2020-03-17 2020-03-17 Outpatient R DEYVI, [facility] [id number] Univers 16:15:00 16:15:00 TETO [facility] 2020-03-04 2020-03-04 Refill [facility] 1.2.840.114 [id number] 00:00:00 00:00:00 MULTISFORMERLY [facility] 350.1.13.10 IAL[place] 4.2.7.2.686 [place] [id number] [facility] 2020-02-25 2020-02-25 Outpatient R OSITO HITCHCOCK [facility] [id number] Univers 16:00:00 16:00:00 itFormerly [facility] 2020 2020 Outpatient R DEYVI [facility] [id number] Univers 14:00:00 14:00:00 [facility] 2020-02-08 2020-02-08 Outpatient R ALICIAPRASANNA [facility] [id number] Univers 10:30:00 10:30:00 [facility] 2020-02-04 2020-02-04 Outpatient R OSITO HITCHCOCK [facility] [id number] Univers 13:30:00 13:30:00 [facility] 2020-01-23 2020-01-23 Outpatient R [facility] [id number] Univers 10:15:00 10:15:00 [facility] 2020-01-21 2020-01-21 Outpatient R OSITO HITCHCOCK [facility] [id number] Univers 13:00:00 13:00:00 [facility] 2020-01-14 2020-01-14 Outpatient R OSITO HITCHCOCK [facility] [id number] Univers 16:00:00 16:00:00 [facility] 2020-01-05 2020-01-05 Outpatient R PRASANNA VARGAS [facility] [id number] Univers 13:45:00 13:45:00 itFormerly [facility] 2019-12-03 2019-12-03 Outpatient R AKINSIPE, [facility] [id number] Univers 10:30:00 10:30:00 [address]ET lechuga o f [facility] 2019-11-27 2019-11-27 Outpatient R DEYVI [facility] [id number] Univers 11:00:00 [facility]00[facility] 2019-11-25 Outpatient R DEYVI [facility] [id number] Univers 08:00:00 08:00:00 TETO [facility] 2019-11-18 2019-11-18 Outpatient R VANAPHAN, [facility] [id number] Univers 10:00:00 10:00:[facility] 2019-09-02 2019-09-02 Outpatient R AKINSIPE, [facility] [id number] Univers 11:00:00 11:00:[address] o f [facility] 2019-08-14 2019-08-14 Outpatient R VANAPHAN, [facility] [id number] Univers 10:15:00 10:15:00 TETO [facility] 2019-08-13 2019-08-13 Outpatient R AKINSIPE, [facility] [id number] Univers 11:00:00 11:00:[address] le[address]uga o f [facility] 2019-08-12 2019-08-12 Outpatient R [facility] [id number] Univers 09:00:00 09:00:00 [facility] 2019-07-20 2019-07-20 Outpatient P PRASANNA VARGAS [facility] CHRIS [id number] Univers 16:06:00 16:06:00 [facility] 2019-07-20 2019-07-20 Outpatient R AKINSIPE, [facility] [id number] Univers 08:15:00 08:15:[address]uga o f [facility] 2019-07-13 2019-07-13 Outpatient R AKINSIPE, [facility] [id number] Univers 08:00:00 08:00:[address]y o f [facility] 2019-07-12 2019-07-12 Outpatient P PRASANNA VARGAS [facility] CHRIS [id number] Univers 13:39:00 13:39:00 [facility] 2019-07-06 2019-07-06 Outpatient R AKINSIPE, [facility] [id number] Univers 13:00:00 13:00:00 [address]ICKET [address]ay o f [facility] 2019-06-13 2019-06-13 Emergency X LAURENLEROYSAHRA, [facility] ERT [id number] Univers 10:40:46 12:35:00 SARAHI [facility] 2019-05-13 2019-05-14 Outpatient P PRASANNA VARGAS [facility] CHRIS [id number] Univers 23:07:00 09:15:00 [facility] Results Test Description Test Time Test Comments Results Result Comments Source TEST, SERUM 2022-08-01 00:23:34 Test Item Value Reference Range Interpretation Comme nts PREG SERUM (test code = 0267679945) Negative WESLEY (test code = WESLEY) Less than 10 IU/L. ?If low titer or ectopic is suspected, resubmit specimen in 48-[address] [facility] ([id number])2022-07-31 23:58:12 Test Item Value Reference Range Interpretation Comments NA (test code = 140 mmol/L 135-145 8886953798) K (test code = 3.6 mmol/L 3.5-5.0 2884427165) CL (test code = 106 mmol/L 98-108 5041650470) CO2 TOTAL (test code = 21 mmol/L 23-31 L 8827715556) AGAP (test code = 13 2-16 5962058915) BUN (test code = 8 mg/dL 7-23 2119009191) GLUCOSE (test code = 90 mg/dL 70-110 3818338302) CREATININE (test code = 0.90 mg/dL 0.50-1.04 5852320483) TOTAL BILI (test code = 0.5 mg/dL 0.1-1.4 3562375163) CALCIUM (test code = 9.0 mg/dL 8.6-10.6 6829748215) T PROTEIN (test code = 7.8 g/dL 6.3-8.2 2914361400) ALBUMIN (test code = 4.6 g/dL 3.5-5.0 2314763763) ALK PHOS (test code = 63 U/L 34-122 4015083333) ALTv (test code = 23 U/L 5-35 1742-6) AST(SGOT) (test code = 27 U/L 13-40 1289426501) eGFR (test code = 75.1 mL/min/1.73m2 7498021824) WESLEY (test code = WESLEY) Association of [...] tests). Lab Interpretation Abnormal (test code = 74463-6) [facility] 23:57:32 Test Item Value Reference Range Interpretation Comments LIPASE (test code = 8330476743) 55 U/L 0-220 Lab Interpretation (test code = Normal 88482-9) [facility] WITH [id number] 23:47:31 Test Item Value Reference Range Interpretation Comments WBC (test code = 5.64 See_Comment [Automated 9302-2) message] The sy stem which generated this result transmitted reference range : 4.30 - 11.10 10*3/?L. The reference range was not used to interpret this result as normal/abnormal . RBC (test code = 4.51 See_Comment [Automated 365-0) message] The sy stem which generated this [...] RDW-SD (test code = 42.5 fL 39.0-49.9 33414-1) RDW-CV (test code = 13.0 % 12.0-15.5 788-0) PLT (test code = 339 See_Comment [Automated 777-3) message] The sy stem which generated this result transmitted reference range : 166 - 358 10*3/ ?L. The reference r david was not used to interpret this result as normal/abnormal . MPV (test code = 9.4 fL 9.5-12.9 L 86268-0) NRBC/100 WBC (test 0.0 See_Comment [Automat ed code = 4556637328) message] The system which generated this result transmitted reference range : 0.0 - 10.0 /100 WBCs. The refer ence range was not u sed to interpret th is result as normal/abnormal . NRBC x10^3 (test code See_Comment [Auto mated = 4539546429) message] The s ystem which generated this result transmitted reference range : 10*3/?L. The reference range was not used to interpret this result as normal/abnormal . GRAN MAT (NEUT) % 51.2 % (test code = 770-8) IMM GRAN % (test code 0.20 % = 1056172040) LYMPH % (test code = 36.5 % 736-9) MONO % (test code = 5.7 % 5905-5) EOS % (test code = 5.9 % 713-8) BASO % (test code = 0.5 % 706-2) GRAN MAT x10^3(ANC) 2.89 10*3/uL 1.88-7.09 (test code = 7656022297) IMM GRAN x10^3 (test 0.00-0.06 code = 6223008275) LYMPH x10^3 (test code 2.06 10*3/uL 1.32-3.29 = 731-0) MONO x10^3 (test code 0.32 10*3/uL 0.33-0.92 L = 742-7) EOS x10^3 (test code = 0.33 10*3/uL 0.03-0.39 711-2) BASO x10^3 (test code 0.03 10*3/uL 0.01-0.07 = 704-7) Lab Interpretation Abnormal (test code = 51161-4) [id number]:14:38 Test Item Value Reference Range Interpretation Comments POCT Molecular Strep (test code = Negative Negative 85219-2) Lab Interpretation (test code = Normal 65617-7) [facility]. METABOLIC PANEL ([id number])2022-05-05 19:35:37 Test Item Value Reference Range Interpretation Comments NA (test code = 139 mmol/L 135-145 7969489197) K (test code = 4.4 mmol/L 3.5-5.0 1008634230) CL (test code = 104 mmol/L 98-108 6205216574) CO2 TOTAL (test code = 22 mmol/L 23-31 L 5376645074) AGAP (test code = 2-16 9677576960) BUN (test code = 11 mg/dL 7-23 4797989968) GLUCOSE (test code = 95 mg/dL 70-110 9676621279) CREATININE (test code = 0.71 mg/dL 0.50-1.04 2857952619) TOTAL BILI (test code = 0.4 mg/dL 0.1-1.2 0119601430) CALCIUM (test code = 9.1 mg/dL 8.6-10.6 4194574573) T PROTEIN (test code = 7.9 g/dL 6.3-8.2 2560226638) ALBUMIN (test code = 4.7 g/dL 3.5-5.0 4251149928) ALK PHOS (test code = 114 U/L 34-122 [id number]) ALTv (test code = 21 U/L 5-35 1742-6) AST(SGOT) (test code = 21 U/L 13-40 5844018146) eGFR (test code = mL/min/1.73m2 1548713759) WESLEY (test code = WESLEY) Association of [...] tests). Lab Interpretation Abnormal (test code = 29511-7) [facility] WITH [id number] 19:25:37 Test Item Value Reference Range Interpretation Comments WBC (test code = See_Comment [Automated 9310-2) message] The sy stem which generated this result transmitted reference range : 4.30 - 11.10 10*3/?L. The reference range was not used to interpret this result as normal/abnormal . RBC (test code = See_Comment [Automated 734-8) message] The sy stem which generated this [...] RDW-SD (test code = 41.7 fL 39.0-49.9 90256-2) RDW-CV (test code = 12.7 % 12.0-15.5 788-0) PLT (test code = See_Comment H [Automated 777-3) message] The sy stem which generated this result transmitted reference range : 166 - 358 10*3/ ?L. The reference r david was not used to interpret this result as normal/abnormal . MPV (test code = 8.8 fL 9.5-12.9 L 93281-2) NRBC/100 WBC (test See_Comment [Automat ed code = 2169629972) message] The system which generated this result transmitted reference range : 0.0 - 10.0 /100 WBCs. The refer ence range was not u sed to interpret th is result as normal/abnormal . NRBC x10^3 (test code See_Comment [Auto mated = 9882455452) message] The s ystem which generated this result transmitted reference range : 10*3/?L. The reference range was not used to interpret this result as normal/abnormal . GRAN MAT (NEUT) % 56.1 % (test code = 770-8) IMM GRAN % (test code 0.40 % = 9076242193) LYMPH % (test code = 29.9 % 736-9) MONO % (test code = 5.4 % 5905-5) EOS % (test code = 7.8 % 713-8) BASO % (test code = 0.4 % 706-2) GRAN MAT x10^3(ANC) 3.75 10*3/uL 1.88-7.09 (test code = 5727638750) IMM GRAN x10^3 (test 0.03 10*3/uL 0.00-0.06 code = 8570465261) LYMPH x10^3 (test code 2.00 10*3/uL 1.32-3.29 = 731-0) MONO x10^3 (test code 0.36 10*3/uL 0.33-0.92 = 742-7) EOS x10^3 (test code = 0.52 10*3/uL 0.03-0.39 H 711-2) BASO x10^3 (test code 0.03 10*3/uL 0.01-0.07 = 704-7) Lab Interpretation Abnormal (test code = 04428-9[id number] Test Item Value Reference Range Interpretation Comments POCT PREG (test code = 1605) negative On board controls acceptable with present C Line (test code = 3574) POCT PREG LOT # (test code = 3575) [id number] POCT PREG TEST DATE (test 08-11-2023 code = 3576) Lab Interpretation (test code = Normal 41023-4) [facility] WITH [id number] 15:21:11 Test Item Value Reference Range Interpretation Comments WBC (test code = See_Comment [Automated 2805-2) message] The sy stem which generated this result transmitted reference range : 4.30 - 11.10 10*3/?L. The reference range was not used to interpret this result as normal/abnormal . RBC (test code = See_Comment [Automated 933-8) message] The sy stem which generated this [...] RDW-SD (test code = 42.6 fL 39.0-49.9 78760-9) RDW-CV (test code = 12.9 % 12.0-15.5 788-0) PLT (test code = See_Comment H [Automated 777-3) message] The sy stem which generated this result transmitted reference range : 166 - 358 10*3/ ?L. The reference r david was not used to interpret this result as normal/abnormal . MPV (test code = 9.1 fL 9.5-12.9 L 92939-3) NRBC/100 WBC (test See_Comment [Automat ed code = 3545251193) message] The system which generated this result transmitted reference range : 0.0 - 10.0 /100 WBCs. The refer ence range was not u sed to interpret th is result as normal/abnormal . NRBC x10^3 (test code See_Comment [Auto mated = 1290029426) message] The s ystem which generated this result transmitted reference range : 10*3/?L. The reference range was not used to interpret this result as normal/abnormal . GRAN MAT (NEUT) % 56.8 % (test code = 770-8) IMM GRAN % (test code 0.30 % = 4861172629) LYMPH % (test code = 29.5 % 736-9) MONO % (test code = 4.3 % 5905-5) EOS % (test code = 8.3 % 713-8) BASO % (test code = 0.8 % 706-2) GRAN MAT x10^3(ANC) 3.57 10*3/uL 1.88-7.09 (test code = 3573406768) IMM GRAN x10^3 (test 0.00-0.06 code = 6810985984) LYMPH x10^3 (test code 1.85 10*3/uL 1.32-3.29 = 731-0) MONO x10^3 (test code 0.27 10*3/uL 0.33-0.92 L = 742-7) EOS x10^3 (test code = 0.52 10*3/uL 0.03-0.39 H 711-2) BASO x10^3 (test code 0.05 10*3/uL 0.01-0.07 = 704-7) Lab Interpretation Abnormal (test code = 33903-7) [facility]. METABOLIC PANEL ([id number])2022-04-26 15:12:13 Test Item Value Reference Range Interpretation Comments NA (test code = 141 mmol/L 135-145 1519020420) K (test code = 3.4 mmol/L 3.5-5.0 L 2094012588) CL (test code = 104 mmol/L 98-108 5246384088) CO2 TOTAL (test code = 23 mmol/L 23-31 5530161885) AGAP (test code = 2-16 4182494382) BUN (test code = 9 mg/dL 7-23 2793216095) GLUCOSE (test code = 101 mg/dL 70-110 1973938145) CREATININE (test code = 0.82 mg/dL 0.50-1.04 8099100024) TOTAL BILI (test code = 0.7 mg/dL 0.1-1.8 6356013454) CALCIUM (test code = 9.3 mg/dL 8.6-10.6 3152798082) T PROTEIN (test code = 8.1 g/dL 6.3-8.2 6472761000) ALBUMIN (test code = 4.7 g/dL 3.5-5.0 5871247990) ALK PHOS (test code = 108 U/L 34-122 5011668379) ALTv (test code = 24 U/L 5-35 1742-6) AST(SGOT) (test code = 49 U/L 13-40 H 1410595452) eGFR (test code = mL/min/1.73m2 8305459713) WESLEY (test code = WESLEY) Association of [...] tests). Lab Interpretation Abnormal (test code = 11114-2) [facility] [id number] 14:45:00 Test Item Value Reference Range Interpretation Comments POCT PREG (test code = 1605) negative On board controls acceptable with present C Line (test code = 3574) POCT PREG LOT # (test code = 3575) [id number] POCT PREG TEST DATE (test 08/11/2023 code = 3576) Lab Interpretation (test code = Normal 50631-6) [facility] [id number] 01:22:00 Test Item Value Reference Range Interpretation Comments POCT PREG (test code = 1605) Negative On board controls acceptable with Present C Line (test code = 3574) POCT PREG LOT # (test code = 3575) [id number] POCT PREG TEST DATE (test 08-11-2023 code = 3576) Lab Interpretation (test code = Normal 10592-6) [facility] (NA, K, CL, CO2, GLUCOSE, BUN, CREATININE, CA)2022-04-07 23:01:10 Test Item Value Reference Range Interpretation Comments NA (test code = 138 mmol/L 135-145 6976929004) K (test code = 4.3 mmol/L 3.5-5.0 0096480128) CL (test code = 107 mmol/L 98-108 2112000908) CO2 TOTAL (test code = 20 mmol/L 23-31 L 4027379611) AGAP (test code = 2-16 0403607784) BUN (test code = 9 mg/dL 7-23 5750435402) GLUCOSE (test code = 204 mg/dL 70-110 H 6634180398) CREATININE (test code = 0.74 mg/dL 0.50-1.04 9479104782) CALCIUM (test code = 9.1 mg/dL 8.6-10.6 8691338510) eGFR (test code = mL/min/1.73m2 8892387449) WESLEY (test code = WESLEY) Association of [...] tests). Lab Interpretation Abnormal (test code = 68587-2) [facility] WITH [id number] 22:57:34 Test Item Value Reference Range Interpretation Comments WBC (test code = See_Comment [Automated 2190-2) message] The sy stem which generated this [...] RDW-SD (test code = 42.9 fL 39.0-49.9 19262-8) RDW-CV (test code = 13.4 % 12.0-15.5 788-0) PLT (test code = See_Comment H [Automated 777-3) message] The sy stem which generated this result transmitted reference range : 166 - 358 10*3/ ?L. The reference r david was not used to interpret this result as normal/abnormal . MPV (test code = 8.9 fL 9.5-12.9 L 98261-2) NRBC/100 WBC (test See_Comment [Automat ed code = 6527361352) message] The system which generated this result transmitted reference range : 0.0 - 10.0 /100 WBCs. The refer ence range was not u sed to interpret th is result as normal/abnormal . NRBC x10^3 (test code See_Comment [Auto mated = 2305763339) message] The s ystem which generated this result transmitted reference range : 10*3/?L. The reference range was not used to interpret this result as normal/abnormal . GRAN MAT (NEUT) % 88.7 % (test code = 770-8) IMM GRAN % (test code 0.70 % = 2203022972) LYMPH % (test code = 9.4 % 736-9) MONO % (test code = 0.9 % 5905-5) EOS % (test code = 0.1 % 713-8) BASO % (test code = 0.2 % 706-2) GRAN MAT x10^3(ANC) 7.81 10*3/uL 1.88-7.09 H (test code = 8748861843) IMM GRAN x10^3 (test 0.06 10*3/uL 0.00-0.06 code = 3484321460) LYMPH x10^3 (test code 0.83 10*3/uL 1.32-3.29 L = 731-0) MONO x10^3 (test code 0.08 10*3/uL 0.33-0.92 L = 742-7) EOS x10^3 (test code = 0.03-0.39 L 711-2) BASO x10^3 (test code 0.01-0.07 = 704-7) Lab Interpretation Abnormal (test code = 85780-9) [facility] [id number] 14:07:00 Test Item Value Reference Range Interpretation Comments POCT PREG (test code = 1605) negative On board controls acceptable with present C Line (test code = 3574) POCT PREG LOT # (test code = 3575) [id number] POCT PREG TEST DATE (test 08/11/2023 code = 3576) Lab Interpretation (test code = Normal 95328-1) [facility] [id number] 13:52:00 Test Item Value Reference Range Interpretation Comments POCT PREG (test code = 1605) negative On board controls acceptable with C present Line (test code = 3574) Lab Interpretation (test code = Normal 33077-4) [facility] [id number] 14:59:00 Test Item Value Reference Range Interpretation Comments POCT PREG (test code = 1605) negative On board controls acceptable with yes C Line (test code = 3574) POCT PREG LOT # (test code = 3575) [id number] POCT PREG TEST DATE (test 07/11/2023 code = 3576) Lab Interpretation (test code = Normal 26489-1) [facility] METABOLIC PANEL (96768)2022 17:51:43 Test Item Value Reference Range Interpretation Comments NA (test code = 139 mmol/L 135-145 7562782891) K (test code = 4.1 mmol/L 3.5-5 3773328564) CL (test code = 104 mmol/L 98-108 1269511484) CO2 TOTAL (test code = 22 mmol/L 23-31 L 1170454162) AGAP (test code = 2-16 6086062356) BUN (test code = 7 mg/dL 7-23 9401311990) GLUCOSE (test code = 114 mg/dL 70-110 H 7844819497) CREATININE (test code = 0.69 mg/dL 0.5-1.04 0977289766) TOTAL BILI (test code = 0.4 mg/dL 0.1-1.1 9068074306) CALCIUM (test code = 9.7 mg/dL 8.6-10.6 8670543256) T PROTEIN (test code = 7.2 g/dL 6.3-8.2 6416986386) ALBUMIN (test code = 4.6 g/dL 3.5-5 3603525975) ALK PHOS (test code = 65 U/L 34-122 4642033182) ALTv (test code = 15 U/L 5-35 1742-6) AST(SGOT) (test code = 19 U/L 13-40 0700054651) eGFR (test code = mL/min/1.73m2 5445796442) WESLEY (test code = WESLEY) Association of [...] tests). Lab Interpretation Abnormal (test code = 66913-3) [facility] WITH [id number] 17:40:24 Test Item Value Reference Range Interpretation Comments WBC (test code = See_Comment [Automated 4890-2) message] The sy stem which generated this result transmitted reference range : 4.30 - 11.10 10*3/?L. The reference range was not used to interpret this result as normal/abnormal . RBC (test code = See_Comment [Automated 323-8) message] The sy stem which generated this [...] RDW-SD (test code = 43.1 fL 39-49.9 02994-2) RDW-CV (test code = 13.2 % 12-15.5 788-0) PLT (test code = See_Comment [Automated 837-3) message] The sy stem which generated this result transmitted reference range : 166 - 358 10*3/ ?L. The reference r david was not used to interpret this result as normal/abnormal . MPV (test code = 9.5 fL 9.5-12.9 78570-4) NRBC/100 WBC (test See_Comment [Automat ed code = 4976752326) message] The system which generated this result transmitted reference range : 0.0 - 10.0 /100 WBCs. The refer ence range was not u sed to interpret th is result as normal/abnormal . NRBC x10^3 (test code See_Comment [Auto mated = 8011724661) message] The s ystem which generated this result transmitted reference range : 10*3/?L. The reference range was not used to interpret this result as normal/abnormal . GRAN MAT (NEUT) % 57.8 % (test code = 770-8) IMM GRAN % (test code 0.20 % = 9568239100) LYMPH % (test code = 30.8 % 736-9) MONO % (test code = 5.1 % 5905-5) EOS % (test code = 5.6 % 713-8) BASO % (test code = 0.5 % 706-2) GRAN MAT x10^3(ANC) 3.61 10*3/uL 1.88-7.09 (test code = 6210796519) IMM GRAN x10^3 (test 0-0.06 code = 7827899540) LYMPH x10^3 (test code 1.92 10*3/uL 1.32-3.29 = 731-0) MONO x10^3 (test code 0.32 10*3/uL 0.33-0.92 L = 742-7) EOS x10^3 (test code = 0.35 10*3/uL 0.03-0.39 711-2) BASO x10^3 (test code 0.03 10*3/uL 0.01-0.07 = 704-7) Lab Interpretation Abnormal (test code = 09445-8) [facility] [id number] 17:27:00 Test Item Value Reference Range Interpretation Comments POCT PREG (test code = 1605) negative On board controls acceptable with present C Line (test code = 3574) POCT PREG LOT # (test code = 3575) [id number] POCT PREG TEST DATE (test code = 3576) Lab Interpretation (test code = Normal 98429-4) [facility] 12[facility]45:21 Test Item Value Reference Range Interpretation Comments LIPASE (test code = 9681472622) 41 U/L 0-220 Lab Interpretation (test code = Normal 03986-6) [facility] [id number] 10:57:00 Test Item Value Reference Range Interpretation Comments POCT PREG (test code = 1605) Negative On board controls acceptable with Present C Line (test code = 3574) POCT PREG LOT # (test code = 3575) [id number] POCT PREG TEST DATE (test 03/12/2023 code = 3576) Lab Interpretation (test code = Normal 25403-7) [facility] (NA, K, CL, CO2, GLUCOSE, BUN, CREATININE, CA)2022-01-18 10:56:51 Test Item Value Reference Range Interpretation Comments NA (test code = 137 mmol/L 135-145 2390486685) K (test code = 4.6 mmol/L 3.5-5 Slight 0632825146) hemolysis CL (test code = 108 mmol/L 98-108 8928680754) CO2 TOTAL (test code 22 mmol/L 23-31 L = 1829148743) AGAP (test code = 2-16 8335754593) BUN (test code = 11 mg/dL 7-23 Slight 4663289240) hemolysis GLUCOSE (test code = 83 mg/dL 70-110 5558659183) CREATININE (test code 0.68 mg/dL 0.5-1.04 = 7530225466) CALCIUM (test code = 8.8 mg/dL 8.6-10.6 0313046435) eGFR (test code = mL/min/1.73m2 0083661377) WESLEY (test code = WESLEY) Association of [...] tests). Lab Interpretation Abnormal (test code = 74348-4) [facility]87548[facility] (ALB,T.PRO,BILI T,BU/BC,ALT,AST,ALK PHOS)2022-01-18 10:56:51 Test Item Value Reference Range Interpretation Comments TOTAL BILI (test code = 0250998073) 0.6 mg/dL 0.1-1.1 BILI UNCON (test code = 1016164445) 0.1 mg/dL 0.1-1.1 BILI CONJ (test code = 9087285418) 0.0 mg/dL 0-0.3 T PROTEIN (test code = 6504323012) 8.6 g/dL 6.3-8.2 H ALBUMIN (test code = 2275239495) 5.1 g/dL 3.5-5 H ALK PHOS (test code = 2050322256) 79 U/L 34-122 ALTv (test code = 1742-6) 117 U/L 5-35 H AST(SGOT) (test code = 0444809252) 163 U/L 13-40 H Lab Interpretation (test code = Abnormal 27411-8) [facility] [id number] 10:54:25 Test Item Value Reference Range Interpretation Comments PREG SERUM (test code Negative = 1572283225) WESLEY (test code = WESLEY) Less than 10 IU/L. ?If low titer or ectopic is suspected, resubmit specimen in 48-72 hours. [facility] WITH [id number] 10:40:49 Test Item Value Reference Range Interpretation [...] RDW-SD (test code = 45.3 fL 39-49.9 64168-0) RDW-CV (test code = 14.5 % 12-15.5 788-0) PLT (test code = See_Comment [Automated 777-3) message] The sy stem which generated this result transmitted reference range : 166 - 358 10*3/ ?L. The reference r david was not used to interpret this result as normal/abnormal . MPV (test code = 9.5 fL 9.5-12.9 07398-0) NRBC/100 WBC (test See_Comment [Automat ed code = 6786989304) message] The system which generated this result transmitted reference range : 0.0 - 10.0 /100 WBCs. The refer ence range was not u sed to interpret th is result as normal/abnormal . NRBC x10^3 (test code See_Comment [Auto mated = 3391981234) message] The s ystem which generated this result transmitted reference range : 10*3/?L. The reference range was not used to interpret this result as normal/abnormal . GRAN MAT (NEUT) % 47.6 % (test code = 770-8) IMM GRAN % (test code 0.60 % = 8225779615) LYMPH % (test code = 39.9 % 736-9) MONO % (test code = 5.9 % 5905-5) EOS % (test code = 5.3 % 713-8) BASO % (test code = 0.7 % 706-2) GRAN MAT x10^3(ANC) 4.45 10*3/uL 1.88-7.09 (test code = 0772961652) IMM GRAN x10^3 (test 0.06 10*3/uL 0-0.06 code = 1065471568) LYMPH x10^3 (test code 3.74 10*3/uL 1.32-3.29 H = 731-0) MONO x10^3 (test code 0.55 10*3/uL 0.33-0.92 = 742-7) EOS x10^3 (test code = 0.50 10*3/uL 0.03-0.39 H 711-2) BASO x10^3 (test code 0.07 10*3/uL 0.01-0.07 = 704-7) Lab Interpretation Abnormal (test code = 37256-7) [facility] [id number] 18:31:00 Test Item Value Reference Range Interpretation Comments POCT PREG (test code = 1605) Negative On board controls acceptable with C Yes Line (test code = 3574) POCT PREG LOT # (test code = 3575) POCT PREG TEST DATE (test code = 3576) [facility] URINALYSIS W/O SPECIFIC [id number] 18:31:00 Test Item Value Reference Range Interpretation [...] code = 3257) Trace Negative - Negative [facility]"
[2022-11-17] MEDS ORDERED: MORPHINE 4 MG/ML SYR ONE ×2 (08:09→09:44)
[2022-11-17] MEDS ORDERED: ONDANSETRON 4 MG/2 ML VIAL ONE (08:09)
[2022-11-17] MEDS ORDERED: NA CHLORIDE 0.9% 1,000 ML ONE (08:09)
[2022-11-17] MEDS ORDERED: CEFTRIAXONE 1000 MG/VIAL ONE (08:10)
[2022-11-17] MEDS ORDERED: NA CHLORIDE 0.9% 50 ML ONE (08:10)
[2022-11-17 08:57] LABS: Absolute Lymphocytes (CBC) 1.6 K/uL (0.7-4.9); Hematocrit 40.2 % (36.0-45.0); Lymphocytes % 31.7 % (15.3-44.8); MCV 86.1 fL (80-100); MPV 7.9 fL (7.6-11.3); RBC Red Blood Cell Count 4.67 M/uL (3.86-4.86)
[2022-11-17 09:05] LABS: Specific Gravity 1.017 (1.005-1.030)
[2022-11-17 09:32] LABS: Albumin 4.1 g/dL (3.4-5.0); Bilirubin Total 0.2 mg/dL (0.2-1.0); Protein, Total 7.8 g/dL (6.4-8.2)
[2022-11-17 09:39] LABS: Potassium 3.6 mEq/L (3.5-5.1)
--- NOTE | 2022-11-17 09:48 | RAD REPORT ---
EXAM DESCRIPTION: Fadia Sylvester (2 Views)11/17/2022 8:55 am CLINICAL HISTORY: Chest pain COMPARISON: October 2022 FINDINGS: The lungs appear clear of acute infiltrate. The heart is normal size IMPRESSION: No acute abnormalities displayed
[2022-11-17 09:55] LABS: Specific Gravity 1.017 (1.005-1.030); Urine Bacteria 20-50 /HPF (<20); Urine Bilirubin NEGATIVE (Negative); Urine Blood Trace (Negative); Urine Clarity Extremely Turbid (Clear); Urine Color Light-Yellow (Yellow); Urine Glucose NEGATIVE (Negative); Urine Mucus 4+ /HPF (None Seen); Urine Protein TRACE (Negative); Urine RBC <5 /HPF (None Seen); Urine Urobilinogen Normal (Normal); Urine WBC Clump Rare /HPF (None Seen)
--- NOTE | 2022-11-17 10:12 | RAD REPORT ---
EXAM DESCRIPTION: CT - Abdomen Pelvis W Contrast - 11/17/2022 9:59 am CLINICAL HISTORY: Abdominal pain/flank pain COMPARISON: none. TECHNIQUE: Computed axial tomography of the abdomen pelvis was obtained. 100 cc Isovue-300 was admin istered intravenously. Oral contrast was not requested which limits evaluation of bowel and appendix All CT scans are performed using dose optimization technique as appropriate and may include automated exposure control or mA/KV adjustment according to patient size. FINDINGS: The liver, spleen, pancreas, adrenal and left kidney appear unremarkable. 3 millimeter calculus right kidney. No hydronephrosis There is no evidence of diverticulitis. Normal appendix No adnexal mass. Small umbilical hernia IMPRESSION: 3 millimeter nonobstructing right renal calculus.
--- NOTE | 2022-11-17 10:20 | EDPHYS ---
Physician Documentation [facility] Name: Natanael Dyson Age: 27 yrs Sex: Female : 1995 Arrival Date: 11/17/2022 Time: 07:44 Bed 5 Private MD: ROMAN Physician Justin Estrella HPI: 11/17 09:37 This 27 yrs old Female presents to ER via Ambulatory with complaints of Pain rudolph With Urination, Low Back Pain. 09:37 The patient presents with pain that is acute, with no known mechanism of injury. The rudolph symptoms are located in the right mid back. The pain does not radiate. The problem was sustained from unknown cause. Onset: The symptoms/episode began/occurred 14 day(s) ago. Modifying factors: The patient symptoms are alleviated by nothing, the patient symptoms are aggravated by any movement, walking. Associated signs and symptoms: Pertinent positives: DYSURIA. Severity of symptoms: At their worst the symptoms were moderate, in the emergency department the symptoms are unchanged. The patient has experienced similar episodes in the past, multiple times. SECOND CUTTER: 10:57 LMP N/A - control method ap3 Historical: - Allergies: 07:58 Compazine; hb 07:58 Ketorolac; hb 07:58 Promethazine; hb 07:58 Reglan; hb - PMHx: 07:58 Asthma; Carcinoma of breast; Cerebrovascular accident; Kidney stone; Migraine; UTI; hb - PSHx: 07:58 section; tubal ligation; hb - Immunization history:: Adult Immunizations up to date. - Social history:: Smoking status: Patient denies any tobacco usage or history of. ROS: 09:39 Constitutional: Negative for fever, chills, and weight loss, Eyes: Negative for injury, rudolph pain, redness, and discharge, ENT: Negative for injury, pain, and discharge, Neck: Negative for injury, pain, and swelling, Cardiovascular: Negative for chest pain, palpitations, and edema, Respiratory: Negative for shortness of breath, cough, wheezing, and pleuritic chest pain, Abdomen/GI: Negative for abdominal pain, nausea, vomiting, diarrhea, and constipation, MS/Extremity: Negative for injury and deformity, Skin: Negative for injury, rash, and discoloration, Neuro: Negative for headache, weakness, numbness, tingling, and seizure, Psych: Negative for depression, anxiety, suicide ideation, homicidal ideation, and hallucinations, Allergy/Immunology: Negative for hives, rash, and allergies, Endocrine: Negative for neck swelling, polydipsia, polyuria, polyphagia, and marked weight changes, Hematologic/Lymphatic: Negative for swollen nodes, abnormal bleeding, and unusual bruising. 09:39 Back: Positive for pain at rest, pain with movement, flank pain, on the right. Exam: 09:39 Constitutional: This is a well developed, well nourished patient who is awake, alert, rudolph and in no acute distress. Head/Face: Normocephalic, atraumatic. Eyes: Pupils equal round and reactive to light, extra-ocular motions intact. Lids and lashes normal. Conjunctiva and sclera are non-icteric and not injected. Cornea within normal limits. Periorbital areas with no swelling, redness, or edema. ENT: Nares patent. No nasal discharge, no septal abnormalities noted. Tympanic membranes are normal and external auditory canals are clear. Oropharynx with no redness, swelling, or masses, exudates, or evidence of obstruction, uvula midline. Mucous membranes moist. Neck: Trachea midline, no thyromegaly or masses palpated, and no cervical lymphadenopathy. Supple, full range of motion without nuchal rigidity, or vertebral point tenderness. No Meningismus. Chest/axilla: Normal chest wall appearance and motion. Nontender with no deformity. No lesions are appreciated. Cardiovascular: Regular rate and rhythm with a normal S1 and S2. No gallops, murmurs, or rubs. Normal PMI, no JVD. No pulse deficits. Respiratory: Lungs have equal breath sounds bilaterally, clear to auscultation and percussion. No rales, rhonchi or wheezes noted. No increased work of breathing, no retractions or nasal flaring. Abdomen/GI: Soft, non-tender, with normal bowel sounds. No distension or tympany. No guarding or rebound. No evidence of tenderness throughout. Skin: Warm, dry with normal turgor. Normal color with no rashes, no lesions, and no evidence of cellulitis. MS/ Extremity: Pulses equal, no cyanosis. Neurovascular intact. Full, normal range of motion. Neuro: Awake and alert, GCS 15, oriented to person, place, time, and situation. Cranial nerves II-XII grossly intact. Motor strength 5/5 in all extremities. Sensory grossly intact. Cerebellar exam normal. Normal gait. Psych: Awake, alert, with orientation to person, place and time. Behavior, mood, and affect are within normal limits. 09:39 Back: pain, that is mild, that is moderate, of the right mid back and right low back, ROM is painful, with flexion, with extension, normal spinal alignment noted, CVA tenderness, that is mild, is noted on the right, muscle spasm, is not present. Vital Signs: 07:53 BP 144 / 89; Pulse 123; Resp 20; Temp 98.6; Pulse Ox 100% on R/A; Weight 58.97 kg; hb Height 5 ft. 1 in. ; Pain 10/10; 08:34 Pulse 97; Pulse Ox 100% on R/A; ap3 09:39 BP 149 / 59; Pulse 101; Resp 17; Pulse Ox 100% on R/A; ap3 10:57 BP 138 / 91; ap3 07:53 Body Mass Index 24.56 (58.97 kg, 154.94 cm) hb 07:53 Pain Scale: Adult hb MDM: 07:46 Patient medically screened. rudolph 09:41 Differential diagnosis: sciatica, Herniated disc UTI. Data reviewed: vital signs, [facility] nurses notes, lab test result(s), EKG, radiologic studies, CT scan, plain films. Consideration of Admission/Observation Escalation of care including admission/observation considered. I considered the following discharge prescriptions or medication management in the emergency department Medications were administered in the Emergency Department. See MAR. Test considered but Not performed: Ultrasound NO RENAL USG. Care significantly affected by the following chronic conditions: ASTHMA,BREAST CANCER, CVA, KIDNEY STONES. Counseling: I had a detailed discussion with the patient and/or guardian regarding: the historical points, exam findings, and any diagnostic results supporting the discharge/admit diagnosis, lab results, radiology results. 11/17 07:51 Order name: CBC with Diff; Complete Time: 10:18 [facility] 11/17 07:51 Order name: Comprehensive Metabolic Panel; Complete Time: 10:18 [facility] 11/17 07:51 Order name: Urinalysis w/ reflexes; Complete Time: 10:18 [facility] 11/17 07:51 Order name: PREGU; Complete Time: 10:18 [facility] 11/17 07:55 Order name: Blood Culture Adult (2) [facility] 11/17 07:55 Order name: Lactate w/ 2H reflex if indic.; Complete Time: 10:18 [facility] 11/17 07:55 Order name: Urine Culture [facility] 11/17 07:51 Order name: CT Abd/Pelvis - IV Contrast Only; Complete Time: 10:18 [facility] 11/17 07:55 Order name: Chest Pa And Lat (2 Views) XRAY; Complete Time: 10:18 [facility] Administered Medications: 07:53 CANCELLED (Duplicate Order): Ketorolac IVP 30 mg IVP once rudolph 08:41 Drug: Ondansetron IVP 4 mg Route: IVP; Site: right antecubital; ap3 10:56 Follow up: Response: No adverse reaction; Nausea is decreased ap3 08:41 Drug: morphine IVP or IV 4 mg Route: IVP; Infused Over: 4 mins; Site: right antecubital;ap3 10:56 Follow up: Response: No adverse reaction; Pain is decreased ap3 08:56 Drug: NS 0.9% IV 1000 ml Route: IV; Rate: 1 bolus; Site: right antecubital; ap3 10:56 Follow up: IV Status: Completed infusion ap3 08:56 Drug: Rocephin IV 1 grams Route: IV; Rate: per protocol; Site: right antecubital; ap3 10:56 Follow up: IV Status: Completed infusion ap3 08:57 Drug: NS 0.9% IV 1000 ml Route: IV; Rate: 1 bolus; Site: right antecubital; ap3 10:56 Follow up: IV Status: Completed infusion ap3 09:45 Drug: morphine IVP or IV 4 mg Route: IVP; Infused Over: 4 mins; Site: right antecubital;ap3 10:55 Follow up: Response: No adverse reaction; Pain is decreased ap3 Disposition Summary: 11/17/22 10:19 Discharge Ordered Location: Home rudolph Problem: new rudolph Symptoms: have improved rudolph Condition: Stable rudolph Diagnosis - Dysuria rudolph - Low back pain rudolph Followup: rudolph - With: Private Physician - When: 2 - 3 days - Reason: Recheck today's complaints, Continuance of care, Re-evaluation by your physician Followup: rudolph - With: Tristan Moeller MD - When: 2 - 3 days - Reason: Recheck today's complaints, Re-evaluation by your physician Discharge Instructions: - Discharge Summary Sheet rudolph - Acute Back Pain, Adult rudolph - Dysuria rudolph - Musculoskeletal Pain [facility] Forms: - Medication Reconciliation Form rudolph - Thank You Letter rudolph - Antibiotic Education rudolph - Prescription Opioid Use [facility] - [email or web address] [facility] Prescriptions: - Cipro 250 mg Oral Tablet - take 1 tablet by ORAL route every 12 hours; 14 tablet; Refills: 0, Product [facility] Selection Permitted - Ibuprofen 600 mg Oral Tablet - take 1 tablet by ORAL route every 8 hours As needed take with food; 21 tablet; rudolph Refills: 0, Product Selection Permitted Signatures: Dispatcher [employer] EDJustin Camacho MD MD cha Baxter, Heather, RN RN Ileana Negrete RN RN ap3 Corrections: (The following items were deleted from the chart) 07:53 07:51 Ketorolac IVP 30 mg IVP once ordered. rudolph [email or web address]
--- NOTE | 2022-11-17 10:20 | ER ---
Nurse's Notes [facility] Name: Natanael Dyson Age: 27 yrs Sex: Female : 1995 Arrival Date: 11/17/2022 Time: 07:44 Bed 5 Private MD: Diagnosis: Dysuria;Low back pain Presentation: 11/17 07:53 Chief complaint: Patient states: Pain with urination x 2 weeks, blood in urine x 3 hb days, severe back pain x 2 days. On ABX for UTI. Coronavirus screen: At this time, the client does not indicate any symptoms associated with coronavirus-19. Ebola Screen: No symptoms or risks identified at this time. Initial Sepsis Screen: Does the patient meet any 2 criteria? No. Patient's initial sepsis screen is negative. Does the patient have a suspected source of infection? No. Patient's initial sepsis screen is negative. Risk Assessment: Do you want to hurt yourself or someone else? Patient reports no desire to harm self or others. Onset of symptoms was November 03, 2022. 07:53 Method Of Arrival: Ambulatory 07:53 Acuity: THIERNO 3 hb Triage Assessment: 08:25 General: Appears uncomfortable, Behavior is calm, cooperative. Pain: Complains of pain ap3 in low back area Pain began approx 3 weeks ago. NEUROLOGY STROKE PHYSICIAN: 10:57 LMP N/A - control method ap3 Historical: - Allergies: 07:58 Compazine; hb 07:58 Ketorolac; hb 07:58 Promethazine; hb 07:58 Reglan; hb - PMHx: 07:58 Asthma; Carcinoma of breast; Cerebrovascular accident; Kidney stone; Migraine; UTI; hb - PSHx: 07:58 section; tubal ligation; hb - Immunization history:: Adult Immunizations up to date. - Social history:: Smoking status: Patient denies any tobacco usage or history of. Screenin:25 [facility] ED Fall Risk Assessment (Adult) History of falling in the last 3 months, ap3 including since admission No falls in past 3 months (0 pts). Abuse screen: Denies threats or abuse. Nutritional screening: No deficits noted. Tuberculosis screening: No symptoms or risk factors identified. Assessment: 08:26 General: Appears uncomfortable, Behavior is calm, cooperative, appropriate for age. ap3 Neuro: Level of Consciousness is awake, alert, obeys commands, Oriented to person, place, time, situation. Cardiovascular: Patient's skin is warm and dry. Respiratory: Airway is patent Respiratory effort is even, unlabored, Respiratory pattern is regular, symmetrical. : Reports pain with urination. Vital Signs: 07:53 BP 144 / 89; Pulse 123; Resp 20; Temp 98.6; Pulse Ox 100% on R/A; Weight 58.97 kg; hb Height 5 ft. 1 in. ; Pain 10/10; 08:34 Pulse 97; Pulse Ox 100% on R/A; ap3 09:39 BP 149 / 59; Pulse 101; Resp 17; Pulse Ox 100% on R/A; ap3 10:57 BP 138 / 91; ap3 07:53 Body Mass Index 24.56 (58.97 kg, 154.94 cm) hb 07:53 Pain Scale: Adult hb ED Course: 07:45 Patient arrived in ED. im 07:45 Justin Estrella MD is Attending Physician. rudolph 07:49 Ileana Negrete RN is Primary Nurse. ap3 07:57 Triage completed. hb 07:58 Arm band placed on. hb 08:25 Patient has correct armband on for positive identification. Bed in low position. Call ap3 light in reach. Side rails up X 1. Pulse ox on. NIBP on. Door closed. Noise minimized. 08:25 Missed attempt(s): 22 gauge in right antecubital area. Bleeding controlled, band aid ap3 applied, catheter tip intact. 08:57 Chest Pa And Lat (2 Views) XRAY In Process Unspecified. EDMS 08:57 Urine Culture Sent. ap3 08:57 PREGU Sent. ap3 08:57 Urinalysis w/ reflexes Sent. ap3 10:00 CT Abd/Pelvis - IV Contrast Only In Process Unspecified. EDMS 10:18 Tristan Moeller MD is Referral Physician. rudolph 10:56 No provider procedures requiring assistance completed. IV discontinued, intact, ap3 bleeding controlled, No redness/swelling at site. Pressure dressing applied. Administered Medications: 07:53 CANCELLED (Duplicate Order): Ketorolac IVP 30 mg IVP once rudolph 08:41 Drug: Ondansetron IVP 4 mg Route: IVP; Site: right antecubital; ap3 10:56 Follow up: Response: No adverse reaction; Nausea is decreased ap3 08:41 Drug: morphine IVP or IV 4 mg Route: IVP; Infused Over: 4 mins; Site: right antecubital;ap3 10:56 Follow up: Response: No adverse reaction; Pain is decreased ap3 08:56 Drug: NS 0.9% IV 1000 ml Route: IV; Rate: 1 bolus; Site: right antecubital; ap3 10:56 Follow up: IV Status: Completed infusion ap3 08:56 Drug: Rocephin IV 1 grams Route: IV; Rate: per protocol; Site: right antecubital; ap3 10:56 Follow up: IV Status: Completed infusion ap3 08:57 Drug: NS 0.9% IV 1000 ml Route: IV; Rate: 1 bolus; Site: right antecubital; ap3 10:56 Follow up: IV Status: Completed infusion ap3 09:45 Drug: morphine IVP or IV 4 mg Route: IVP; Infused Over: 4 mins; Site: right antecubital;ap3 10:55 Follow up: Response: No adverse reaction; Pain is decreased ap3 Medication: 10:57 VIS not applicable for this client. ap3 Outcome: 10:19 Discharge ordered by . rudolph 10:56 Discharged to home ambulatory. ap3 10:56 Condition: good 10:56 Discharge instructions given to patient, Instructed on discharge instructions, follow up and referral plans. medication usage, Demonstrated understanding of instructions, follow-up care, medications, Prescriptions given X 2. 11:02 Patient left the ED. ap3 Signatures: Dispatcher [employer] EDJustin Camacho MD MD cha Baxter, Heather, RN RN hb Prokisch, Amanda, RN RN ap3 Margie Nettles
[2022-11-17 12:18] VITALS: TEMP 98.6; O2SAT 100
[2022-11-17 12:42] VITALS: BP 138/91
== END 2022-11-17 11:02 | disposition home or self-care (01) ==
LOC: ER 07:44
DX: R30.0 Dysuria (principal); M54.50 Low back pain, unspecified; Z88.8 Allergy status to other drugs, medicaments and biological substances
CPT/HCPCS: 96365; 87040 ×2; 85025; 81001; 36415; 81025; 83605; 80053; 74177; 71046; 96375; 99284; 96366; Q9967; J2405; J7030; J0696

== ENCOUNTER 2022-12-01 02:35 | Inpatient (IN) | payer OTHER ==
--- OUTSIDE RECORDS SUMMARY | 2022-12-01 02:59 | XMS REPORT | Continuity of Care Document ---
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 Yes [facility] 600 mg 2-17 ity of tablet 00:00: [place] 00 [facility] citalopram 2023-0 Yes 10mg Take 1 [facility] rs 10 mg 2-17 tablet by ity of tablet 00:00: mouth in [place] the Medical morning. Branch QUEtiapine 2023-0 Yes [facility] 400 mg 2-17 ity of tablet 00:00: [place] 00 [facility] gabapentin 2023-0 Yes [facility] 600 mg 2-17 ity of tablet 00:00: [place] 00 [facility] citalopram 2023-0 Yes 10mg Take 1 [facility] rs 10 mg 2-17 tablet by ity of tablet 00:00: mouth in [place] the Medical morning. Branch QUEtiapine 2023-0 Yes [facility] 400 mg 2-17 ity of tablet 00:00: [place] 00 [facility] gabapentin 2023-0 Yes [facility] 600 mg 2-17 ity of tablet 00:00: [place] 00 [facility] citalopram 2023-0 Yes 10mg Take 1 [facility] rs 10 mg 2-17 tablet by ity of tablet 00:00: mouth in [place] the Medical morning. Branch QUEtiapine 2023-0 Yes [facility] 400 mg 2-17 ity of tablet 00:00: [place] 00 [facility] gabapentin 2023-0 Yes [facility] 600 mg 2-17 ity of tablet 00:00: [place] 00 [facility] citalopram 2023-0 Yes 10mg Take 1 [facility] rs 10 mg 2-17 tablet by ity of tablet 00:00: mouth in [place] the Medical morning. Branch QUEtiapine 2023-0 Yes [facility] 400 mg 2-17 ity of tablet 00:00: [place] 00 [facility] gabapentin 2023-0 Yes [facility] 600 mg 2-17 ity of tablet 00:00: [place] [id number] [facility] Branch citalopram 2023-0 Yes 10mg Take 1 [facility] rs 10 mg 2-17 tablet by ity of tablet 00:00: mouth in [place] the Medical morning. Branch QUEtiapine 2023-0 Yes [facility] 400 mg 2-17 ity of tablet 00:00: [place] 00 [facility] gabapentin 2023-0 Yes [facility] 600 mg 2-17 ity of tablet 00:00: [place] 00 [facility] citalopram 2023-0 Yes 10mg Take 1 [facility] rs 10 mg 2-17 tablet by ity of tablet 00:00: mouth in [place] the Medical morning. Branch QUEtiapine 2023-0 Yes [facility] 400 mg 2-17 ity of tablet 00:00: [place] 00 [facility] gabapentin 2023-0 Yes [facility] 600 mg 2-17 ity of tablet 00:00: [place] 00 [facility] citalopram 2023-0 Yes 10mg Take 1 [facility] rs 10 mg 2-17 tablet by ity of tablet 00:00: mouth in [place] the Medical morning. Branch QUEtiapine 2023-0 Yes [facility] 400 mg 2-17 ity of tablet 00:00: [place] 00 [facility] gabapentin 2023-0 Yes [facility] 600 mg 2-17 ity of tablet 00:00: [place] [id number] [facility] Branch citalopram 3-0 Yes 10mg Take 1 [facility] rs 10 mg 2-17 tablet by ity of tablet 00:00: mouth in [place] 00 the Medical morning. Branch QUEtiapine 2023-0 Yes [facility] 400 mg 2-17 ity of tablet 00:00: [place] [address] [facility] Branch gabapentin 2023-0 Yes [facility] 600 mg 2-17 ity of tablet 00:00: [place] [address] [facility] Branch methylPREDN 2023-0 Yes [id number] Take by [facility] ISolone 2-11 mouth ity of (MEDROL, 00:00: SEE-INSTRU [place],) 4 mg 00 CTIONS. Medica l tablets follow Branch package directions methylPREDN 2023-0 Yes [id number] Take by [facility] ISolone 2-11 mouth ity of (MEDROL, 00:00: SEE-INSTRU [place],) 4 mg 00 CTIONS. Medica l tablets follow Branch package directions methylPREDN 2023-0 Yes [id number] Take by [facility] ISolone 2-11 mouth ity of (MEDROL, 00:00: SEE-INSTRU [place],) 4 mg 00 CTIONS. Medica l tablets follow Branch package directions methylPREDN 2023-0 Yes [id number] Take by [facility] ISolone 2-11 mouth ity of (MEDROL, 00:00: SEE-INSTRU [place],) 4 mg 00 CTIONS. Medica l tablets follow Branch package directions methylPREDN 2023-0 Yes [id number] Take by [facility] ISolone 2-11 mouth ity of (MEDROL, 00:00: SEE-INSTRU [place],) 4 mg 00 CTIONS. Medica l tablets follow Branch package directions methylPREDN 2023-0 Yes [id number] Take by [facility] ISolone 2-11 mouth ity of (MEDROL, 00:00: SEE-INSTRU [place],) 4 mg 00 CTIONS. Medica l tablets follow Branch package directions methylPREDN 2023-0 Yes [id number] Take by [facility] ISolone 2-11 mouth ity of (MEDROL, 00:00: SEE-INSTRU [place],) 4 mg 00 CTIONS. Medica l tablets follow Branch package directions methylPREDN 2023-0 Yes [id number] Take by [facility] ISolone -11 mouth ity of (MEDROL, 00:00: SEE-INSTRU [place],) 4 mg 00 CTIONS. Medica l tablets follow Branch package directions methylPREDN 2023-0 Yes [id number] Take by [facility] ISolone 11 mouth ity of (MEDROL, 00:00: SEE-INSTRU [place],) 4 mg 00 CTIONS. Medica l tablets follow Branch package directions methylPREDN 2023-0 Yes [id number] Take by [facility] ISolone 11 mouth ity of (MEDROL, 00:00: SEE-INSTRU [place],) 4 mg 00 CTIONS. Medica l tablets follow Branch package directions methylPREDN 2023-0 Yes [id number] Take by [facility] ISolone 11 mouth ity of (MEDROL, 00:00: SEE-INSTRU [place],) 4 mg 00 CTIONS. Medica l tablets follow Branch package directions methylPREDN 2023-0 Yes [id number] Take by [facility] ISolone -11 mouth ity of (MEDROL, 00:00: SEE-INSTRU [place],) 4 mg 00 CTIONS. Medica l tablets follow Branch package directions methylPREDN 2023-0 Yes [id number] Take by [facility] ISolone 11 mouth ity of (MEDROL, 00:00: SEE-INSTRU [place],) 4 mg 00 CTIONS. Medica l tablets follow Branch package directions methylPREDN 2023-0 Yes [id number] Take by [facility] ISolone 11 mouth ity of (MEDROL, 00:00: SEE-INSTRU [place],) 4 mg 00 CTIONS. Medica l tablets follow Branch package directions bromphenira 2022-0 2022- No [id number] 5mL Take 5 mL [facility] mine-pseudo 06-23 by mouth 4 i ty of ephedrine-D 00:00: 05:59 (four) [place] M (BROMFED 00 :00 times Medical DM) 2-30-10 daily as Bran ch mg/5 mL needed for syrup Cold symptoms for up to 10 days. methocarbam 2023-0 3- No [id number] 750mg Take 1 [facility] oL 750 mg 06-23 [id number] tablet by it y of tablet 00:00: [...] 1 05/05/22 tablet at 1415, [place] dexamethaso 2021-05 No 10mg 10 mg, Uni vers ne sod phos 07-06 Slow IV ity of PF 20:15: 21:00 [place], [place] injection 00 :00 ONCE, 1 Medical 10 mg dose, On Branch 05/05/22 at 1415, 1 mL NaCl 0.9% 2021-05 No 1000mL at 999 Uni vers (NS) bolus 07-06-24 mL/hr, ity of infusion 20:00: 21:45 1,000 mL, [place] 1,000 mL 00 :00 IV Medical Infusion, Branch ONCE, 1 dose, On 05/05/22 at 1400, [place] diphenhydrA 2021-05 No 25mg 25 mg, Uni vers MINE 07-06- Slow IV ity of (BENADRYL) 19:15: 19:42 [place], [place] injection 00 :00 ONCE, 1 Medical 25 mg dose, On Branch 05/05/22 at 1315, STAT ondansetron 2021-05 No 4mg 4 mg, Slow [facility] (ZOFRAN 07-06 IV Push, ity of (PF)) 19:15: 19:45 ONCE, 1 [place] injection 4 00 :00 dose, On Medi yessi mg Sat Branch 05/05/22 at 1315, [place] ketorolac 2021-05 30mg 30 mg, Unive rs (TORADOL) 2-24 12-24 Slow IV ity of injection 19:15: 19:44 [place], [place] 30 mg 00 :00 ONCE, 1 Medical dose, On Branch 05/05/22 at 1315, Routine butalbital- 2021-05 Yes [id number] 1{tbl} Take 1 [facility] acetaminoph 2-24 tablet by ity of en-caff 00:00: mouth [place] 50-325-40 00 every 4 Medical mg tablet (four) Branch hours as needed for Pain (scale 7-10). butalbital- 2021-05 Yes [id number] 1{tbl} Take 1 [facility] acetaminoph 2-24 tablet by ity of en-caff 00:00: mouth [place] 50-325-40 00 every 4 Medical mg tablet (four) Branch hours as needed for Pain (scale 7-10). butalbital- 2021-05 Yes [id number] 1{tbl} Take 1 [facility] acetaminoph 2-24 tablet by ity of en-caff 00:00: mouth [place] 50-325-40 00 every 4 Medical mg tablet (four) Branch hours as needed for Pain (scale 7-10). butalbital- 2021-05 Yes [id number] 1{tbl} Take 1 [facility] acetaminoph 2-24 tablet by ity of en-caff 00:00: mouth [place] 50-325-40 00 every 4 Medical mg tablet (four) Branch hours as needed for Pain (scale 7-10). butalbital- 2021-05 Yes [id number] 1{tbl} Take 1 [facility] acetaminoph 2-24 tablet by ity of en-caff 00:00: mouth [place] 50-325-40 00 every 4 Medical mg tablet (four) Branch hours as needed for Pain (scale 7-10). butalbital- 2021-05 Yes [id number] 1{tbl} Take 1 [facility] acetaminoph 2-24 tablet by ity of en-caff 00:00: mouth [place] 50-325-40 00 every 4 Medical mg tablet (four) Branch hours as needed for Pain (scale 7-10). butalbital- 2021-05 Yes [id number] 1{tbl} Take 1 [facility] acetaminoph 2-24 tablet by ity of en-caff 00:00: mouth [place] 50-325-40 00 every 4 Medical mg tablet (four) Branch hours as needed for Pain (scale 7-10). butalbital- 2021-05 Yes [id number] 1{tbl} Take 1 [facility] acetaminoph 2-24 tablet by ity of en-caff 00:00: mouth [place] 50-325-40 00 every 4 Medical mg tablet (four) Branch hours as needed for Pain (scale 7-10). butalbital2021-05 Yes [id number] 1{tbl} Take 1 [facility] acetaminoph 2-24 tablet by ity of en-caff 00:00: mouth [place] 50-325-40 00 every 4 Medical mg tablet (four) Branch hours as needed for Pain (scale 7-10). butalbital- 2021-05 Yes [id number] 1{tbl} Take 1 [facility] acetaminoph 2-24 tablet by ity of en-caff 00:00: mouth [place] 50-325-40 00 every 4 Medical mg tablet (four) Branch hours as needed for Pain (scale 7-10). butalbital2021-05 Yes [id number] 1{tbl} Take 1 [facility] acetaminoph 2-24 tablet by ity of en-caff 00:00: mouth [place] 50-325-40 00 every 4 Medical mg tablet (four) Branch hours as needed for Pain (scale 7-10). butalbital2021-05 Yes [id number] 1{tbl} Take 1 [facility] acetaminoph 2-24 tablet by ity of en-caff 00:00: mouth [place] 50-325-40 00 every 4 Medical mg tablet (four) Branch hours as needed for Pain (scale 7-10). butalbital- 2021-05 Yes [id number] 1{tbl} Take 1 [facility] acetaminoph 2-24 tablet by ity of en-caff 00:00: mouth [place] 50-325-40 00 every 4 Medical mg tablet (four) Branch hours as needed for Pain (scale 7-10). butalbital2021-05 Yes [id number] 1{tbl} Take 1 [facility] acetaminoph 2-24 tablet by ity of en-caff 00:00: mouth [place] 50-325-40 00 every 4 Medical mg tablet (four) Branch hours as needed for Pain (scale 7-10). butalbital- 2021-05 Yes [id number] 1{tbl} Take 1 [facility] acetaminoph 2-24 tablet by ity of en-caff 00:00: mouth [place] 50-325-40 00 every 4 Medical mg tablet (four) Branch hours as needed for Pain (scale 7-10). butalbital- 2021-05 Yes [id number] 1{tbl} Take 1 [facility] acetaminoph 2-24 tablet [...] 00 :00 dose, On Medica l mg [facility] Branch 04/26/22 at 0945, [place] NaCl 0.9% 2021-05- No 1000mL at [...] 00 :00 dose, On Medi yessi mg [facility] Branch 04/26/22 at 0845, Routine cephALEXin 2021-05- No [id number] 500mg Take 1 Univers (KEFLEX) 2-15 12-23 [...] Nausea and Vomiting (N/V). galcanezuma 2021-05 Yes [id number] 120mg inject 120 [facility] b-gnlm 1-28 mg under ity of prefilled 00:00: [place] (EMGALITY) 00 once every Med ical subcutaneou month. Branch s injection galcanezuma 2021-05 Yes [id number] 120mg inject 120 [facility] b-gnlm 1-28 mg under ity of prefilled 00:00: [place] (EMGALITY) 00 once every Med ical subcutaneou month. Branch s injection galcanezuma 2021-05 Yes [id number] 120mg inject 120 [facility] b-gnlm 1-28 mg under ity of prefilled 00:00: [place] (EMGALITY) 00 once every Med ical subcutaneou month. Branch s injection galcanezuma 2021-05 Yes [id number] 120mg inject 120 [facility] b-gnlm 1-28 mg under ity of prefilled 00:00: [place] (EMGALITY) 00 once every Med ical subcutaneou month. Branch s injection galcanezuma 2021-05 Yes [id number] 120mg inject 120 [facility] b-gnlm 1-28 mg under ity of prefilled 00:00: [place] (EMGALITY) 00 once every Med ical subcutaneou month. Branch s injection galcanezuma 2021-05 Yes [id number] 120mg inject 120 [facility] b-gnlm 1-28 mg under ity of prefilled 00:00: [place] (EMGALITY) 00 once every Med ical subcutaneou month. Branch s injection galcanezuma 2021-05 Yes [id number] 120mg inject 120 [facility] b-gnlm 1-28 mg under ity of prefilled 00:00: [place] (EMGALITY) 00 once every Med ical subcutaneou month. Branch s injection galcanezuma 2021-05 Yes [id number] 120mg inject 120 [facility] b-gnlm 1-28 mg under ity of prefilled 00:00: [place] (EMGALITY) 00 once every Med ical subcutaneou month. Branch s injection galcanezuma 2021-05 Yes [id number] 120mg inject 120 [facility] b-gnlm 1-28 mg under ity of prefilled 00:00: [place] (EMGALITY) 00 once every Med ical subcutaneou month. Branch s injection galcanezuma 2021-05 Yes [id number] 120mg inject 120 [facility] b-gnlm 1-28 mg under ity of prefilled 00:00: [place] (EMGALITY) 00 once every Med ical subcutaneou month. Branch s injection galcanezuma 2021-05 Yes [id number] 120mg inject 120 [facility] b-gnlm 1-28 mg under ity of prefilled 00:00: [place] (EMGALITY) 00 once every Med ical subcutaneou month. Branch s injection galcanezuma 2021-05 Yes [id number] 120mg inject 120 [facility] b-gnlm 1-28 mg under ity of prefilled 00:00: [place] (EMGALITY) 00 once every Med ical subcutaneou month. Branch s injection galcanezuma 2021-05 Yes [id number] 120mg inject 120 [facility] b-gnlm 1-28 mg under ity of prefilled 00:00: [place] (EMGALITY) 00 once every Med ical subcutaneou month. Branch s injection galcanezuma 2021-05 Yes [id number] 120mg inject 120 [facility] b-gnlm 1-28 mg under ity of prefilled 00:00: [place] (EMGALITY) 00 once every Med ical subcutaneou month. Branch s injection galcanezuma 2021-05 Yes [id number] 120mg inject 120 [facility] b-gnlm 1-28 mg under ity of prefilled 00:00: [place] (EMGALITY) 00 once every Med ical subcutaneou month. Branch s injection galcanezuma 2021-05 Yes [id number] 120mg inject 120 [facility] b-gnlm 1-28 mg under ity of prefilled 00:00: [place] (EMGALITY) 00 once every Med ical subcutaneou month. Branch s injection galcanezuma 2021-05 Yes [id number] 120mg inject 120 [facility] b-gnlm 1-28 mg under ity of prefilled 00:00: [place] (EMGALITY) 00 once every Med ical subcutaneou month. Branch s injection galcanezuma 2021-05 Yes [id number] 120mg inject 120 [facility] b-gnlm 1-28 mg under ity of prefilled 00:00: [place] (EMGALITY) 00 once every Med ical subcutaneou month. Branch s injection galcanezuma 2021-05 Yes [id number] 120mg inject 120 [facility] b-gnlm 1-28 mg under ity of prefilled 00:00: [place] (EMGALITY) 00 once every Med ical subcutaneou month. Branch s injection galcanezuma 2021-05 Yes [id number] 120mg inject 120 [facility] b-gnlm 1-28 mg under ity of prefilled 00:00: [place] (EMGALITY) 00 once every Med ical subcutaneou month. Branch s injection galcanezuma 2021-05 Yes [id number] 120mg inject 120 [facility] b-gnlm 1-28 mg under ity of prefilled 00:00: [place] (EMGALITY) 00 once every Med ical subcutaneou month. Branch s injection galcanezuma 2021-05 Yes [id number] 120mg inject 120 [facility] b-gnlm 1-28 mg under ity of prefilled 00:00: [place] (EMGALITY) 00 once every Med ical subcutaneou month. Branch s injection galcanezuma 2021-05 Yes [id number] 120mg inject 120 [facility] b-gnlm 1-28 mg under ity of prefilled 00:00: [place] (EMGALITY) 00 once every Med ical subcutaneou month. Branch s injection galcanezuma 2021-05 Yes [id number] 120mg inject 120 [facility] b-gnlm 1-28 mg under ity of prefilled 00:00: [place] (EMGALITY) 00 once every Med ical subcutaneou month. Branch s injection galcanezuma 2021-05 Yes [id number] 120mg inject 120 [facility] b-gnlm 1-28 mg under ity of prefilled 00:00: [place] (EMGALITY) 00 once every Med ical subcutaneou month. Branch s injection galcanezuma 2021-05 Yes [id number] 120mg inject 120 [facility] b-gnlm 1-28 mg under ity of prefilled 00:00: [place] (EMGALITY) 00 once every Med ical subcutaneou month. Branch s injection galcanezuma 2021-05 Yes [id number] 120mg inject 120 [facility] b-gnlm 1-28 mg under ity of prefilled 00:00: [place] (EMGALITY) 00 once every Med ical subcutaneou month. Branch s injection galcanezuma 2021-05 Yes [id number] 120mg inject 120 [facility] b-gnlm 1-28 mg under ity of prefilled 00:00: [place] (EMGALITY) 00 once every Med ical subcutaneou month. Branch s injection galcanezuma 2021-05 Yes [id number] 120mg inject 120 [facility] b-gnlm 1-28 mg under ity of prefilled 00:00: [place] (EMGALITY) 00 once every Med ical subcutaneou month. Branch s injection galcanezuma 2021-05 Yes [id number] 120mg inject 120 [facility] b-gnlm 1-28 mg [...] of hen (NORCO) 00:30: 23:45 NOW, 1 [place] as 10-325 mg 00 :00 dose, On Medica l tablet 1 Sat [place] tablet 04/07/22 at 1830, Routine diphenhydrA 2021-05- No 12.5mg 12.5 mg, Univers MINE 06-07 Slow IV ity of (BENADRYL) 23:45: 23:46 [place], [place] injection 00 :00 ONCE, 1 Medical 12.5 [...] On Branch 03/24/22 at 0815, STAT ALBUTEROL 2021-05 No [facility] INHALE 05-24 ity of 07:58: 00:00 [place] 13 :00 Medical Branch rizatriptan 2021-05 Yes [id number] 10mg Take 1 [facility] 10 mg 1-12 tablet by ity of tablet 00:00: mouth as [place] 00 needed for Medical Migraine. Branch May repeat in 2 hours if needed Butalbital- 2021-05 Yes [id number] 1{capsu Take 1 Univers Acetaminoph 1-12 le} [...] daily. Indication s: headache rizatriptan 2021-05 Yes [id number] 10mg Take 1 [facility] 10 mg 1-12 tablet by ity of tablet 00:00: mouth as [place] 00 needed for Medical Migraine. Branch May repeat in 2 hours if needed Butalbital- 2021-05 Yes [id number] 1{capsu Take 1 [facility] Acetaminoph 1-12 le} [...] daily. Indication s: headache rizatriptan 2021-05 Yes [id number] 10mg Take 1 [facility] 10 mg 1-12 tablet by ity of tablet 00:00: mouth as [place] 00 needed for Medical Migraine. Branch May repeat in 2 hours if needed Butalbital- 2021-05 Yes [id number] 1{capsu Take 1 [facility] Acetaminoph 1-12 le} [...] daily. Indication s: headache rizatriptan 2021-05 Yes [id number] 10mg Take 1 [facility] 10 mg 1-12 tablet by ity of tablet 00:00: mouth as [place] 00 needed for Medical Migraine. Branch May repeat in 2 hours if needed Butalbital- 2021-05 Yes [id number] 1{capsu Take 1 Univers Acetaminoph 1-12 le} capsule by it y of en-Caff 00:00: mouth [place] (FIORICET) 00 every 6 Medica l 50-300-40 (six) Branch mg per hours as capsule needed for Other (headache) . rizatriptan 2021-05 Yes [id number] 10mg Take 1 Univers 10 mg 1-12 tablet by ity of tablet 00:00: mouth as [place] 00 needed for Medical Migraine. Branch May repeat in 2 hours if needed Butalbital- 2021-05 Yes [id number] 1{capsu Take 1 [facility] Acetaminoph 1-12 le} capsule by it y of en-Caff 00:00: mouth [place] (FIORICET) 00 every 6 Medica l 50-300-40 (six) Branch mg per hours as capsule needed for Other (headache) . rizatriptan 2021-05 Yes [id number] 10mg Take 1 [facility] 10 mg 1-12 tablet by ity of tablet 00:00: mouth as [place] 00 needed for Medical Migraine. Branch May repeat in 2 hours if needed Butalbital- 2021-05 Yes [id number] 1{capsu Take 1 Univers Acetaminoph 1-12 le} capsule by it y of en-Caff 00:00: mouth [place] (FIORICET) 00 every 6 Medica l 50-300-40 (six) Branch mg per hours as capsule needed for Other (headache) . rizatriptan 2021-05 Yes [id number] 10mg Take 1 Univers 10 mg 1-12 tablet by ity of tablet 00:00: mouth as [place] 00 needed for Medical Migraine. Branch May repeat in 2 hours if needed Butalbital- 2021-05 Yes [id number] 1{capsu Take 1 [facility] Acetaminoph 1-12 le} capsule by it y of en-Caff 00:00: mouth [place] (FIORICET) 00 every 6 Medica l 50-300-40 (six) Branch mg per hours as capsule needed for Other (headache) . rizatriptan 2021-05 Yes [id number] 10mg Take 1 [facility] 10 mg 1-12 tablet by ity of tablet 00:00: mouth as [place] 00 needed for Medical Migraine. Branch May repeat in 2 hours if needed Butalbital- 2021-05 Yes [id number] 1{capsu Take 1 [facility] Acetaminoph 1-12 le} capsule by it y of en-Caff 00:00: mouth [place] (FIORICET) 00 every 6 Medica l 50-300-40 (six) Branch mg per hours as capsule needed for Other (headache) . rizatriptan 2021-05 Yes [id number] 10mg Take 1 Univers 10 mg 1-12 tablet by ity of tablet 00:00: mouth as [place] 00 needed for Medical Migraine. Branch May repeat in 2 hours if needed Butalbital- 2021-05 Yes [id number] 1{capsu Take 1 Univers Acetaminoph 1-12 le} capsule by it y of en-Caff 00:00: mouth [place] (FIORICET) 00 every 6 Medica l 50-300-40 (six) Branch mg per hours as capsule needed for Other (headache) . rizatriptan 2021-05 Yes [id number] 10mg Take 1 Univers 10 mg 1-12 tablet by ity of tablet 00:00: mouth as [place] 00 needed for Medical Migraine. Branch May repeat in 2 hours if needed Butalbital- 2021-05 Yes [id number] 1{capsu Take 1 Univers Acetaminoph 1-12 le} capsule by it y of en-Caff 00:00: mouth [place] (FIORICET) 00 every 6 Medica l 50-300-40 (six) Branch mg per hours as capsule needed for Other (headache) . rizatriptan 2021-05 Yes [id number] 10mg Take 1 Univers 10 mg 1-12 tablet by ity of tablet 00:00: mouth as [place] 00 needed for Medical Migraine. Branch May repeat in 2 hours if needed Butalbital- 2021-05 Yes [id number] 1{capsu Take 1 Univers Acetaminoph 1-12 le} capsule by it y of en-Caff 00:00: mouth [place] (FIORICET) 00 every 6 Medica l 50-300-40 (six) Branch mg per hours as capsule needed for Other (headache) . rizatriptan 2021-05 Yes [id number] 10mg Take 1 Univers 10 mg 1-12 tablet by ity of tablet 00:00: mouth as [place] 00 needed for Medical Migraine. Branch May repeat in 2 hours if needed Butalbital- 2021-05 Yes [id number] 1{capsu Take 1 Univers Acetaminoph 1-12 le} capsule by it y of en-Caff 00:00: mouth [place] (FIORICET) 00 every 6 Medica l 50-300-40 (six) Branch mg per hours as capsule needed for Other (headache) . rizatriptan 2021-05 Yes [id number] 10mg Take 1 Univers 10 mg 1-12 tablet by ity of tablet 00:00: mouth as [place] 00 needed for Medical Migraine. Branch May repeat in 2 hours if needed Butalbital- 2021-05 Yes [id number] 1{capsu Take 1 Univers Acetaminoph 1-12 le} capsule by it y of en-Caff 00:00: mouth [place] (FIORICET) 00 every 6 Medica l 50-300-40 (six) Branch mg per hours as capsule needed for Other (headache) . rizatriptan 2021-05 Yes [id number] 10mg Take 1 Univers 10 mg 1-12 tablet by ity of tablet 00:00: mouth as [place] 00 needed for Medical Migraine. Branch May repeat in 2 hours if needed Butalbital- 2021-05 Yes [id number] 1{capsu Take 1 Univers Acetaminoph 1-12 le} capsule by it y of en-Caff 00:00: mouth [place] (FIORICET) 00 every 6 Medica l 50-300-40 (six) Branch mg per hours as capsule needed for Other (headache) . rizatriptan 2021-05 Yes [id number] 10mg Take 1 Univers 10 mg 1-12 tablet by ity of tablet 00:00: mouth as [place] 00 needed for Medical Migraine. Branch May repeat in 2 hours if needed Butalbital- 2021-05 Yes [id number] 1{capsu Take 1 Univers Acetaminoph 1-12 le} capsule by it y of en-Caff 00:00: mouth [place] (FIORICET) 00 every 6 Medica l 50-300-40 (six) Branch mg per hours as capsule needed for Other (headache) . rizatriptan 2021-05 Yes [id number] 10mg Take 1 Univers 10 mg 1-12 tablet by ity of tablet 00:00: mouth as [place] 00 needed for Medical Migraine. Branch May repeat in 2 hours if needed Butalbital- 2021-05 Yes [id number] 1{capsu Take 1 Univers Acetaminoph 1-12 le} capsule by it y of en-Caff 00:00: mouth [place] (FIORICET) 00 every 6 Medica l 50-300-40 (six) Branch mg per hours as capsule needed for Other (headache) . rizatriptan 2021-05 Yes [id number] 10mg Take 1 Univers 10 mg 1-12 tablet by ity of tablet 00:00: mouth as [place] 00 needed for Medical Migraine. Branch May repeat in 2 hours if needed Butalbital- 2021-05 Yes [id number] 1{capsu Take 1 [facility] Acetaminoph 1-12 le} capsule by it y of en-Caff 00:00: mouth [place] (FIORICET) 00 every 6 Medica l 50-300-40 (six) Branch mg per hours as capsule needed for Other (headache) . rizatriptan 2021-05 Yes [id number] 10mg Take 1 [facility] 10 mg 1-12 tablet by ity of tablet 00:00: mouth as [place] 00 needed for Medical Migraine. Branch May repeat in 2 hours if needed Butalbital- 2021-05 Yes [id number] 1{capsu Take 1 [facility] Acetaminoph 1-12 le} capsule by it y of en-Caff 00:00: mouth [place] (FIORICET) 00 every 6 Medica l 50-300-40 (six) Branch mg per hours as capsule needed for Other (headache) . rizatriptan 2021-05 Yes [id number] 10mg Take 1 [facility] 10 mg 1-12 tablet by ity of tablet 00:00: mouth as [place] 00 needed for Medical Migraine. Branch May repeat in 2 hours if needed Butalbital- 2021-05 Yes [id number] 1{capsu Take 1 [facility] Acetaminoph 1-12 le} capsule by it y of en-Caff 00:00: mouth [place] (FIORICET) 00 every 6 Medica l 50-300-40 (six) Branch mg per hours as capsule needed for Other (headache) . rizatriptan 2021-05 Yes [id number] 10mg Take 1 [facility] 10 mg 1-12 tablet by ity of tablet 00:00: mouth as [place] 00 needed for Medical Migraine. Branch May repeat in 2 hours if needed Butalbital- 2021-05 Yes [id number] 1{capsu Take 1 [facility] Acetaminoph 1-12 le} capsule by it y of en-Caff 00:00: mouth [place] (FIORICET) 00 every 6 Medica l 50-300-40 (six) Branch mg per hours as capsule needed for Other (headache) . rizatriptan 2021-05 Yes [id number] 10mg Take 1 [facility] 10 mg 1-12 tablet by ity of tablet 00:00: mouth as [place] 00 needed for Medical Migraine. Branch May repeat in 2 hours if needed Butalbital- 2021-05 Yes [id number] 1{capsu Take 1 [facility] Acetaminoph 1-12 le} capsule by it y of en-Caff 00:00: mouth [place] (FIORICET) 00 every 6 Medica l 50-300-40 (six) Branch mg per hours as capsule needed for Other (headache) . rizatriptan 2021-05 Yes [id number] 10mg Take 1 [facility] 10 mg 1-12 tablet by ity of tablet 00:00: mouth as [place] 00 needed for Medical Migraine. Branch May repeat in 2 hours if needed Butalbital- 2021-05 Yes [id number] 1{capsu Take 1 [facility] Acetaminoph 1-12 le} capsule by it y of en-Caff 00:00: mouth [place] (FIORICET) 00 every 6 Medica l 50-300-40 (six) Branch mg per hours as capsule needed for Other (headache) . rizatriptan 2021-05 Yes [id number] 10mg Take 1 [facility] 10 mg 1-12 tablet by ity of tablet 00:00: mouth as [place] 00 needed for Medical Migraine. Branch May repeat in 2 hours if needed Butalbital- 2021-05 Yes [id number] 1{capsu Take 1 [facility] Acetaminoph 1-12 le} capsule by it y of en-Caff 00:00: mouth [place] (FIORICET) 00 every 6 Medica l 50-300-40 (six) Branch mg per hours as capsule needed for Other (headache) . rizatriptan 2021-05 Yes [id number] 10mg Take 1 [facility] 10 mg 1-12 tablet by ity of tablet 00:00: mouth as [place] 00 needed for Medical Migraine. Branch May repeat in 2 hours if needed Butalbital- 2021-05 Yes [id number] 1{capsu Take 1 [facility] Acetaminoph 1-12 le} capsule by it y of en-Caff 00:00: mouth [place] (FIORICET) 00 every 6 Medica l 50-300-40 (six) Branch mg per hours as capsule needed for Other (headache) . rizatriptan 2021-05 Yes [id number] 10mg Take 1 [facility] 10 mg 1-12 tablet by ity of tablet 00:00: mouth as [place] 00 needed for Medical Migraine. Branch May repeat in 2 hours if needed Butalbital- 2021-05 Yes [id number] 1{capsu Take 1 [facility] Acetaminoph 1-12 le} capsule by it y of en-Caff 00:00: mouth [place] (FIORICET) 00 every 6 Medica l 50-300-40 (six) Branch mg per hours as capsule needed for Other (headache) . rizatriptan 2021-05 Yes [id number] 10mg Take 1 [facility] 10 mg 1-12 tablet by ity of tablet 00:00: mouth as [place] 00 needed for Medical Migraine. Branch May repeat in 2 hours if needed Butalbital- 2021-05 Yes [id number] 1{capsu Take 1 [facility] Acetaminoph 1-12 le} capsule by it y of en-Caff 00:00: mouth [place] (FIORICET) 00 every 6 Medica l 50-300-40 (six) Branch mg per hours as capsule needed for Other (headache) . rizatriptan 2021-05 Yes [id number] 10mg Take 1 [facility] 10 mg 1-12 tablet by ity of tablet 00:00: mouth as [place] 00 needed for Medical Migraine. Branch May repeat in 2 hours if needed Butalbital- 2021-05 Yes [id number] 1{capsu Take 1 [facility] Acetaminoph 1-12 le} capsule by it y of en-Caff 00:00: mouth [place] (FIORICET) 00 every 6 Medica l 50-300-40 (six) Branch mg per hours as capsule needed for Other (headache) . rizatriptan 2021-05 Yes [id number] 10mg Take 1 [facility] 10 mg 1-12 tablet by ity of tablet 00:00: mouth as [place] 00 needed for Medical Migraine. Branch May repeat in 2 hours if needed Butalbital- 2021-05 Yes [id number] 1{capsu Take 1 [facility] Acetaminoph 1-12 le} capsule by it y of en-Caff 00:00: mouth [place] (FIORICET) 00 every 6 Medica l 50-300-40 (six) Branch mg per hours as capsule needed for Other (headache) . rizatriptan 2021-05 Yes [id number] 10mg Take 1 [facility] 10 mg 1-12 tablet by ity of tablet 00:00: mouth as [place] 00 needed for Medical Migraine. Branch May repeat in 2 hours if needed Butalbital- 2021-05 Yes [id number] 1{capsu Take 1 [facility] Acetaminoph 1-12 le} capsule by it y of en-Caff 00:00: mouth [place] (FIORICET) 00 every 6 Medica l 50-300-40 (six) Branch mg per hours as capsule needed for Other (headache) . rizatriptan 2021-05 Yes [id number] 10mg Take 1 [facility] 10 mg 1-12 tablet by ity of tablet 00:00: mouth as [place] 00 needed for Medical Migraine. Branch May repeat in 2 hours if needed Butalbital- 2021-05 Yes [id number] 1{capsu Take 1 [facility] Acetaminoph 1-12 le} capsule by it y of en-Caff 00:00: mouth [place] (FIORICET) 00 every 6 Medica l 50-300-40 (six) Branch mg per hours as capsule needed for Other (headache) . rizatriptan 2021-05 Yes [id number] 10mg Take 1 [facility] 10 mg 1-12 tablet by ity of tablet 00:00: mouth as [place] 00 needed for Medical Migraine. Branch May repeat in 2 hours if needed Butalbital- 2021-05 Yes [id number] 1{capsu Take 1 [facility] Acetaminoph 1-12 le} capsule by it y of en-Caff 00:00: mouth [place] (FIORICET) 00 every 6 Medica l 50-300-40 (six) Branch mg per hours as capsule needed for Other (headache) . rizatriptan 2021-05 Yes [id number] 10mg Take 1 [facility] 10 mg 1-12 tablet by ity of tablet 00:00: mouth as [place] 00 needed for Medical Migraine. Branch May repeat in 2 hours if needed Butalbital- 2021-05 Yes [id number] 1{capsu Take 1 [facility] Acetaminoph 1-12 le} capsule by it y of en-Caff 00:00: mouth [place] (FIORICET) 00 every 6 Medica l 50-300-40 (six) Branch mg per hours as capsule needed for Other (headache) . rizatriptan 2021-05 Yes [id number] 10mg Take 1 [facility] 10 mg 1-12 tablet by ity of tablet 00:00: mouth as [place] 00 needed for Medical Migraine. Branch May repeat in 2 hours if needed Butalbital- 2021-05 Yes [id number] 1{capsu Take 1 [facility] Acetaminoph 1-12 le} capsule by it y of en-Caff 00:00: mouth [place] (FIORICET) 00 every 6 Medica l 50-300-40 (six) Branch mg per hours as capsule needed for Other (headache) . rizatriptan 2021-05 Yes [id number] 10mg Take 1 [facility] 10 mg 1-12 tablet by ity of tablet 00:00: mouth as [place] 00 needed for Medical Migraine. Branch May repeat in 2 hours if needed Butalbital- 2021-05 Yes [id number] 1{capsu Take 1 [facility] Acetaminoph 1-12 le} [...] 1 Medical 50 mcg dose, On Branch [facility] 03/15/22 at 1030, Routine proMETHazin 2021-05 No 25mg 25 mg, Uni vers e 05-15 Oral, ity of (PHENERGAN) 14:45: 14:55 ONCE, 1 [place] 25 00 :00 dose, On Medica l mg [facility] 03/15/22 at 0945, [place] FENTanyl PF 2021-05 No 50ug 50 mcg, Un sushant (SUBLIMAZE 05-15 Slow IV ity o f (PF)) 14:45: 13:58 Push, [place] injection 00 :00 ONCE, 1 Medical 50 mcg dose, On Branch [facility] 03/15/22 at 0945, Routine ondansetron 2021-05 No 4mg 4 mg, Slow Univers (ZOFRAN 05-15 IV Push, ity of (PF)) 14:00: 13:58 ONCE, 1 [place] injection 4 00 :00 dose, On Medi yessi mg [facility] 03/15/22 at 0900, [place] ondansetron 2021-05 Yes [id number] 4mg Take 1 [facility] 4 mg 03 tablet by ity of disintegrat 00:00: mouth [place] ing tablet 00 every 8 Medica l (eight) Branch hours as needed for Nausea and Vomiting (N/V). ketorolac 2021-05 Yes [id number] 10mg Take 1 U nivers 10 mg 1-03 tablet by ity of tablet 00:00: mouth [place] 00 every 6 Medical (six) Branch hours as needed for Pain (scale 7-10). proMETHazin 2021-05 Yes [id number] 25mg Take 1 [facility] e 25 mg 1-03 tablet by ity of tablet 00:00: mouth [place] 00 every 6 Medical (six) Branch hours as needed for N/V unresponsi ve to Ondansetro n. ondansetron 2021-05 Yes [id number] 4mg Take 1 [facility] 4 mg 1-03 tablet by ity of disintegrat 00:00: mouth [place] ing tablet 00 every 8 Medica l (eight) Branch hours as needed for Nausea and Vomiting (N/V). ketorolac 2021-05 Yes [id number] 10mg Take 1 U nivers 10 mg 1-03 tablet by ity of tablet 00:00: mouth [place] 00 every 6 Medical (six) Branch hours as needed for Pain (scale 7-10). proMETHazin 2021-05 Yes [id number] 25mg Take 1 [facility] e 25 mg 1-03 tablet by ity of tablet 00:00: mouth [place] 00 every 6 Medical (six) Branch hours as needed for N/V unresponsi ve to Ondansetro n. carvediloL 2021-05 Yes [id number] 25mg Take 1 U nivers 25 mg 1-03 tablet by ity of tablet 00:00: mouth in [place] 00 the Medical morning Branch and 1 tablet in the evening. Take with meals. ondansetron 2021-05 Yes [id number] 4mg Take 1 [facility] 4 mg 1-03 tablet by ity of disintegrat 00:00: mouth [place] ing tablet 00 every 8 Medica l (eight) Branch hours as needed for Nausea and Vomiting (N/V). ketorolac 2021-05 Yes [id number] 10mg Take 1 U nivers 10 mg 1-03 tablet by ity of tablet 00:00: mouth [place] 00 every 6 Medical (six) Branch hours as needed for Pain (scale 7-10). proMETHazin 2021-05 Yes [id number] 25mg Take 1 [facility] e 25 mg 1-03 tablet by ity of tablet 00:00: mouth [place] 00 every 6 Medical (six) Branch hours as needed for N/V unresponsi ve to Ondansetro n. carvediloL 2021-05 Yes [id number] 25mg Take 1 U nivers 25 mg 1-03 tablet by ity of tablet 00:00: mouth in [place] 00 the Medical morning Branch and 1 tablet in the evening. Take with meals. ondansetron 2021-05 Yes [id number] 4mg Take 1 [facility] 4 mg 1-03 tablet by ity of disintegrat 00:00: mouth [place] ing tablet 00 every 8 Medica l (eight) Branch hours as needed for Nausea and Vomiting (N/V). ketorolac 2021-05 Yes [id number] 10mg Take 1 U nivers 10 mg 1-03 tablet by ity of tablet 00:00: mouth [place] 00 every 6 Medical (six) Branch hours as needed for Pain (scale 7-10). proMETHazin 2021-05 Yes [id number] 25mg Take 1 [facility] e 25 mg 1-03 tablet by ity of tablet 00:00: mouth [place] 00 every 6 Medical (six) Branch hours as needed for N/V unresponsi ve to Ondansetro n. carvediloL 2021-05 Yes [id number] 25mg Take 1 U nivers 25 mg 1-03 tablet by ity of tablet 00:00: mouth in [place] 00 the Medical morning Branch and 1 tablet in the evening. Take with meals. ondansetron 2021-05 Yes [id number] 4mg Take 1 [facility] 4 mg 1-03 tablet by ity of disintegrat 00:00: mouth [place] ing tablet 00 every 8 Medica l (eight) Branch hours as needed for Nausea and Vomiting (N/V). ketorolac 2021-05 Yes [id number] 10mg Take 1 U nivers 10 mg 1-03 tablet by ity of tablet 00:00: mouth [place] 00 every 6 Medical (six) Branch hours as needed for Pain (scale 7-10). proMETHazin 2021-05 Yes [id number] 25mg Take 1 Univers e 25 mg 1-03 tablet by ity of tablet 00:00: mouth [place] 00 every 6 Medical (six) Branch hours as needed for N/V unresponsi ve to Ondansetro n. carvediloL 2021-05 Yes [id number] 25mg Take 1 U nivers 25 mg 1-03 tablet by ity of tablet 00:00: mouth in [place] 00 the Medical morning Branch and 1 tablet in the evening. Take with meals. ondansetron 2021-05 Yes [id number] 4mg Take 1 [facility] 4 mg 1-03 tablet by ity of disintegrat 00:00: mouth [place] ing tablet 00 every 8 Medica l (eight) Branch hours as needed for Nausea and Vomiting (N/V). ketorolac 2021-05 Yes [id number] 10mg Take 1 U nivers 10 mg 1-03 tablet by ity of tablet 00:00: mouth [place] 00 every 6 Medical (six) Branch hours as needed for Pain (scale 7-10). proMETHazin 2021-05 Yes [id number] 25mg Take 1 Univers e 25 mg 1-03 tablet by ity of tablet 00:00: mouth [place] 00 every 6 Medical (six) Branch hours as needed for N/V unresponsi ve to Ondansetro n. carvediloL 2021-05 Yes [id number] 25mg Take 1 U nivers 25 mg 1-03 tablet by ity of tablet 00:00: mouth in [place] 00 the Medical morning Branch and 1 tablet in the evening. Take with meals. ondansetron 2021-05 Yes [id number] 4mg Take 1 [facility] 4 mg 1-03 tablet by ity of disintegrat 00:00: mouth [place] ing tablet 00 every 8 Medica l (eight) Branch hours as needed for Nausea and Vomiting (N/V). ketorolac 2021-05 Yes [id number] 10mg Take 1 U nivers 10 mg 1-03 tablet by ity of tablet 00:00: mouth [place] 00 every 6 Medical (six) Branch hours as needed for Pain (scale 7-10). proMETHazin 2021-05 Yes [id number] 25mg Take 1 Univers e 25 mg 1-03 tablet by ity of tablet 00:00: mouth [place] 00 every 6 Medical (six) Branch hours as needed for N/V unresponsi ve to Ondansetro n. carvediloL 2021-05 Yes [id number] 25mg Take 1 U nivers 25 mg 1-03 tablet by ity of tablet 00:00: mouth in [place] 00 the Medical morning Branch and 1 tablet in the evening. Take with meals. ondansetron 2021-05 Yes [id number] 4mg Take 1 [facility] 4 mg 1-03 tablet by ity of disintegrat 00:00: mouth [place] ing tablet 00 every 8 Medica l (eight) Branch hours as needed for Nausea and Vomiting (N/V). ketorolac 2021-05 Yes [id number] 10mg Take 1 U nivers 10 mg 1-03 tablet by ity of tablet 00:00: mouth [place] 00 every 6 Medical (six) Branch hours as needed for Pain (scale 7-10). proMETHazin 2021-05 Yes [id number] 25mg Take 1 Univers e 25 mg 1-03 tablet by ity of tablet 00:00: mouth [place] 00 every 6 Medical (six) Branch hours as needed for N/V unresponsi ve to Ondansetro n. carvediloL 2021-05 Yes [id number] 25mg Take 1 U nivers 25 mg 1-03 tablet by ity of tablet 00:00: mouth in [place] 00 the Medical morning Branch and 1 tablet in the evening. Take with meals. ondansetron 2021-05 Yes [id number] 4mg Take 1 [facility] 4 mg 1-03 tablet by ity of disintegrat 00:00: mouth [place] ing tablet 00 every 8 Medica l (eight) Branch hours as needed for Nausea and Vomiting (N/V). ketorolac 2021-05 Yes [id number] 10mg Take 1 U nivers 10 mg 1-03 tablet by ity of tablet 00:00: mouth [place] 00 every 6 Medical (six) Branch hours as needed for Pain (scale 7-10). proMETHazin 2021-05 Yes [id number] 25mg Take 1 Univers e 25 mg 1-03 tablet by ity of tablet 00:00: mouth [place] 00 every 6 Medical (six) Branch hours as needed for N/V unresponsi ve to Ondansetro n. carvediloL 2021-05 Yes [id number] 25mg Take 1 U nivers 25 mg 1-03 tablet by ity of tablet 00:00: mouth in [place] 00 the Medical morning Branch and 1 tablet in the evening. Take with meals. ondansetron 2021-05 Yes [id number] 4mg Take 1 [facility] 4 mg 1-03 tablet by ity of disintegrat 00:00: mouth [place] ing tablet 00 every 8 Medica l (eight) Branch hours as needed for Nausea and Vomiting (N/V). ketorolac 2021-05 Yes [id number] 10mg Take 1 U nivers 10 mg 1-03 tablet by ity of tablet 00:00: mouth [place] 00 every 6 Medical (six) Branch hours as needed for Pain (scale 7-10). proMETHazin 2021-05 Yes [id number] 25mg Take 1 Univers e 25 mg 1-03 tablet by ity of tablet 00:00: mouth [place] 00 every 6 Medical (six) Branch hours as needed for N/V unresponsi ve to Ondansetro n. carvediloL 2021-05 Yes [id number] 25mg Take 1 U nivers 25 mg 1-03 tablet by ity of tablet 00:00: mouth in [place] [address] the Medical morning Branch and 1 tablet in the evening. Take with meals. carvediloL 2021-05 Yes [id number] 25mg Take 1 U nivers 25 mg 1-03 tablet by ity of tablet 00:00: mouth in [place] [address] the Medical morning Branch and 1 tablet in the evening. Take with meals. carvediloL 2021-05 Yes [id number] 25mg Take 1 U nivers 25 mg 1-03 tablet by ity of tablet 00:00: mouth in [place] [address] the Medical morning [place] and 1 tablet in the evening. Take with meals. carvediloL 2021-05 Yes [id number] 25mg Take 1 U nivers 25 mg 1-03 tablet by ity of tablet 00:00: mouth in [place] [address] the [facility] morning [place] and 1 tablet in the evening. Take with meals. carvediloL 2021-05 Yes [id number] 25mg Take 1 U nivers 25 mg 1-03 tablet by ity of tablet 00:00: mouth in [place] [address] the Medical morning Branch and 1 tablet in the evening. Take with meals. carvediloL 2021-05 Yes [id number] 25mg Take 1 U nivers 25 mg 1-03 tablet by ity of tablet 00:00: mouth in [place] [address] the [facility] morning [place] and 1 tablet in the evening. Take with meals. carvediloL 2021-05 Yes [id number] 25mg Take 1 U nivers 25 mg 1-03 tablet by ity of tablet 00:00: mouth in [place] [address] the Medical morning Branch and 1 tablet in the evening. Take with meals. carvediloL 2021-05 Yes [id number] 25mg Take 1 U nivers 25 mg 1-03 tablet by ity of tablet 00:00: mouth in [place] 00 the Medical morning Branch and 1 tablet in the evening. Take with meals. carvediloL 2021-05 Yes [id number] 25mg Take 1 U nivers 25 mg 1-03 tablet by ity of tablet 00:00: mouth in [place] 00 the Medical morning Branch and 1 tablet in the evening. Take with meals. carvediloL 2021-05 Yes [id number] 25mg Take 1 U nivers 25 mg 1-03 tablet by ity of tablet 00:00: mouth in [place] 00 the Medical morning Branch and 1 tablet in the evening. Take with meals. carvediloL 2021-05 Yes [id number] 25mg Take 1 U nivers 25 mg 1-03 tablet by ity of tablet 00:00: mouth in [place] [address] the Medical morning Branch and 1 tablet in the evening. Take with meals. carvediloL 2021-05 Yes [id number] 25mg Take 1 U nivers 25 mg 1-03 tablet by ity of tablet 00:00: mouth in [place] [address] the Medical morning [place] and 1 tablet in the evening. Take with meals. carvediloL 2021-05 Yes [id number] 25mg Take 1 U nivers 25 mg 1-03 tablet by ity of tablet 00:00: mouth in [place] [address] the Medical morning Branch and 1 tablet in the evening. Take with meals. carvediloL 2021-05 Yes [id number] 25mg Take 1 U nivers 25 mg 1-03 tablet by ity of tablet 00:00: mouth in [place] [address] the Medical morning [place] and 1 tablet in the evening. Take with meals. carvediloL 2021-05 Yes [id number] 25mg Take 1 U nivers 25 mg 1-03 tablet by ity of tablet 00:00: mouth in [place] [address] the Medical morning Branch and 1 tablet in the evening. Take with meals. carvediloL 2021-05 Yes [id number] 25mg Take 1 U nivers 25 mg 1-03 tablet by ity of tablet 00:00: mouth in [place] [address] the Medical morning [place] and 1 tablet in the evening. Take with meals. carvediloL 2021-05 Yes [id number] 25mg Take 1 U nivers 25 mg 1-03 tablet by ity of tablet 00:00: mouth in [place] [address] the [facility] morning [place] and 1 tablet in the evening. Take with meals. carvediloL 2021-05 Yes [id number] 25mg Take 1 U nivers 25 mg 1-03 tablet by ity of tablet 00:00: mouth in [place] [address] the [facility] and 1 tablet in the evening. Take with meals. carvediloL 2021-05 Yes [id number] 25mg Take 1 U nivers 25 mg 1-03 tablet by ity of tablet 00:00: mouth in [place] [address] the [facility] and 1 tablet in the evening. Take with meals. carvediloL 2021-05 Yes [id number] 25mg Take 1 U nivers 25 mg 1-03 tablet by ity of tablet 00:00: mouth in [place] [address] the [facility] and 1 tablet in the evening. Take with meals. carvediloL 2021-05 Yes [id number] 25mg Take 1 U nivers 25 mg 1-03 tablet by ity of tablet 00:00: mouth in [address] and 1 tablet in the evening. Take with meals. carvediloL 2021-05 Yes [id number] 25mg Take 1 U nivers 25 mg 1-03 tablet by ity of tablet 00:00: mouth in [address] and 1 tablet in the evening. Take with meals. carvediloL 2021-05- No [id number] 25mg Take 1 [facility] 25 mg 1-03 04-26 tablet by ity of tablet 00:00: 00:00 mouth in [place] 00 :00 the [facility] and 1 tablet in the evening. Take with meals. carvediloL 2021-05- No [id number] 25mg Take 1 [facility] 25 mg 1-03 04-26 tablet by ity of tablet 00:00: 00:00 mouth in [place] 00 :00 the [facility] and 1 tablet in the evening. Take with meals. ondansetron 2021-05- No [id number] 4mg Take 1 [facility] 4 mg 1-03 11-26 tablet by ity of disintegrat 00:00: 00:[place] 00 :00 every 8 Medica l (eight) Branch hours as needed for Nausea and Vomiting (N/V). ketorolac 2021-05- No [id number] 10mg Take 1 [facility] 10 mg 05-15 tablet by ity of tablet 00:00: 00:00 mouth [place] 00 :00 every 6 Medical (six) Branch hours as needed for Pain (scale 7-10). proMETHazin 2021-05- No [id number] 25mg Take 1 Univers e 25 mg 05-15 tablet by ity of tablet 00:00: 00:00 mouth [place] 00 :00 every 6 Medical (six) Branch hours as needed for N/V unresponsi ve to Ondansetro n. cephALEXin 2021-05- No [id number] 500mg Take 1 [facility] 500 mg 05-15 capsule by ity of capsule 00:00: 05:59 mouth 4 [place] 00 :00 (four) Medical times Branch daily for 3 days. cephALEXin 2021-05- No [id number] 500mg Take 1 [facility] 500 mg 05-15 capsule by ity of capsule 00:00: 05:59 mouth 4 [place] 00 :00 (four) Medical times Branch daily for 3 days. cephALEXin 2021-05- No [id number] 500mg Take 1 [facility] 500 mg 05-15 capsule by ity of capsule 00:00: 05:59 mouth 4 [place] 00 :00 (four) Medical times Branch daily for 3 days. predniSONE 2021-05- No [id number] 20mg Take 1 [facility] 20 mg 003-15 tablet by ity of tablet 00:00: 04:59 mouth in [place] 00 :00 the Medical morning Branch for 2 days. methocarbam 2021-05- No 500mg 500 mg, U nivers oL 0-30 10-30 Oral, ity of (ROBAXIN) 16:45: 17:08 ONCE, 1 [place] 00 :00 dose, On Medic al mg [facility] 03/11/22 at 1200, [place] dexamethaso 2021-05- No 10mg 10 mg, Uni vers ne sod phos 0-30 10-30 Slow IV ity of PF 16:00: 16:00 Push, [place] injection 00 :00 ONCE, 1 Medical 10 mg dose, On Branch [place] 03/11/22 at 1100, 1 mL diphenhydrA 2021-05 No 25mg 25 mg, Uni vers MINE 0-30 10-30 Slow IV ity of (BENADRYL) 15:46: 16:00 Push, [place] injection 00 :00 ONCE, 1 Medical 25 mg dose, On [facility] 03/11/22 at 1100, STAT NaCl 0.9% 2021-05 No 1000mL at 999 Uni vers (NS) IV 0-30 10-30 mL/hr, ity of infusion 15:45: 16:04 [place] 1,000 mL 00 :00 s, ONCE, 1 Medic al dose, On [facility] 03/11/22 at 1045, Routine butalbital- 2021-05- [...] 00 :00 ONCE, 1 Medical dose, On [facility] 03/11/22 at 0945, [place] proMETHazin 2021-05 No 12.5mg 12.5 mg, Univers e 0-30 10-30 IV ity of (PHENERGAN) 14:45: 15:04 Piggyback, [place] 12.5 mg in 00 :00 ONCE, 1 Medica l NaCl 0.9% dose, On Branch (NS) 50 mL Sun IV 03/11/22 piggyback at 0945, [place] proMETHazin 2021-05 Yes [id number] 25mg Take 1 Univers e 25 mg 0-30 tablet by ity of tablet 00:00: mouth [place] 00 every 6 Medical (six) Branch hours as needed for Nausea and Vomiting (N/V). methocarbam 2021-05 Yes [id number] 500mg Take 1 Univers oL 500 mg 0-30 tablet by ity o f tablet 00:00: mouth 3 [place] 00 (three) Medical times Branch daily as needed for Pain (scale 7-10). proMETHazin 2021-05 Yes [id number] 25mg Take 1 Univers e 25 mg 0-30 tablet by ity of tablet 00:00: mouth [place] 00 every 6 Medical (six) Branch hours as needed for Nausea and Vomiting (N/V). methocarbam 2021-05 Yes [id number] 500mg Take 1 Univers oL 500 mg 0-30 tablet by ity o f tablet 00:00: mouth 3 [place] 00 (three) Medical times Branch daily as needed for Pain (scale 7-10). proMETHazin 2021-05 Yes [id number] 25mg Take 1 Univers e 25 mg 0-30 tablet by ity of tablet 00:00: mouth [place] 00 every 6 Medical (six) Branch hours as needed for Nausea and Vomiting (N/V). methocarbam 2021-05 Yes [id number] 500mg Take 1 Univers oL 500 mg 0-30 tablet by ity o f tablet 00:00: mouth 3 00 (three) Medical times Branch daily as needed for Pain (scale 7-10). proMETHazin 2021-05 Yes [id number] 25mg Take 1 Univers e 25 mg 0-30 tablet by ity of tablet 00:00: mouth [place] 00 every 6 Medical (six) Branch hours as needed for Nausea and Vomiting (N/V). methocarbam 2021-05 Yes [id number] 500mg Take 1 Univers oL 500 mg 0-30 tablet by ity o f tablet 00:00: mouth 3 [place] 00 (three) Medical times Branch daily as needed for Pain (scale 7-10). proMETHazin 2021-05 Yes [id number] 25mg Take 1 Univers e 25 mg 0-30 tablet by ity of tablet 00:00: mouth [place] 00 every 6 Medical (six) Branch hours as needed for Nausea and Vomiting (N/V). methocarbam 2021-05 Yes [id number] 500mg Take 1 Univers oL 500 mg 0-30 tablet by ity o f tablet 00:00: mouth 3 [place] 00 (three) Medical times Branch daily as needed for Pain (scale 7-10). proMETHazin 2021-05 Yes [id number] 25mg Take 1 [facility] 25 mg 0-30 tablet by [facility] of tablet 00:00: mouth [place] 00 every 6 Medical (six) Branch hours as needed for Nausea and Vomiting (N/V). methocarbam 2021-05 Yes [id number] 500mg Take 1 [facility] oL 500 mg 0-30 tablet by ity o f tablet 00:00: mouth 3 00 (three) Medical times Branch daily as needed for Pain (scale 7-10). proMETHazin 2021-05 Yes [id number] 25mg Take 1 [facility] 25 mg 0-30 tablet by [facility] of tablet 00:00: mouth [place] 00 every 6 Medical (six) Branch hours as needed for Nausea and Vomiting (N/V). methocarbam 2021-05 Yes [id number] 500mg Take 1 [facility] oL 500 mg 0-30 tablet by ity o f tablet 00:00: mouth 3 (three) Medical times Branch daily as needed for Pain (scale 7-10). proMETHazin 2021-05 Yes [id number] 25mg Take 1 [facility] 25 mg 0-30 tablet by [facility] of tablet 00:00: mouth [place] 00 every 6 Medical (six) Branch hours as needed for Nausea and Vomiting (N/V). methocarbam 2021-05 Yes [id number] 500mg Take 1 [facility] oL 500 mg 0-30 tablet by ity o f tablet 00:00: mouth 00 (three) Medical times Branch daily as needed for Pain (scale 7-10). proMETHazin 2021-05 Yes [id number] 25mg Take 1 [facility] 25 mg 0-30 tablet by [facility] of tablet 00:00: mouth [place] 00 every 6 Medical (six) Branch hours as needed for Nausea and Vomiting (N/V). methocarbam 2021-05 Yes [id number] 500mg Take 1 [facility] oL 500 mg 0-30 tablet by ity o f tablet 00:00: mouth 3 00 (three) Medical times Branch daily as needed for Pain (scale 7-10). proMETHazin 2021-05 Yes [id number] 25mg Take 1 [facility] 25 mg 0-30 tablet by [facility] of tablet 00:00: mouth [place] 00 every 6 Medical (six) Branch hours as needed for Nausea and Vomiting (N/V). methocarbam 2021-05 Yes [id number] 500mg Take 1 [facility] oL 500 mg 0-30 tablet by ity o f tablet 00:00: mouth 3 [place] 00 (three) Medical times Branch daily as needed for Pain (scale 7-10). proMETHazin 2021-05 Yes [id number] 25mg Take 1 [facility] 25 mg 0-30 tablet by [facility] of tablet 00:00: mouth [place] 00 every 6 Medical (six) Branch hours as needed for Nausea and Vomiting (N/V). methocarbam 2021-05 Yes [id number] 500mg Take 1 [facility] oL 500 mg 0-30 tablet by ity o f tablet 00:00: mouth 3 [place] 00 (three) Medical times Branch daily as needed for Pain (scale 7-10). proMETHazin 2021-05 Yes [id number] 25mg Take 1 [facility] 25 mg 0-30 tablet by [facility] of tablet 00:00: mouth [place] 00 every 6 Medical (six) Branch hours as needed for Nausea and Vomiting (N/V). proMETHazin 2021-05 Yes [id number] 25mg Take 1 [facility] 25 mg 0-30 tablet by [facility] of tablet 00:00: mouth [place] 00 every 6 Medical (six) Branch hours as needed for Nausea and Vomiting (N/V). proMETHazin 2021-05 Yes [id number] 25mg Take 1 [facility] 25 mg 0-30 tablet by [facility] of tablet 00:00: mouth [place] 00 every 6 Medical (six) Branch hours as needed for Nausea and Vomiting (N/V). proMETHazin 2021-05 Yes [id number] 25mg Take 1 [facility] 25 mg 0-30 tablet by [facility] of tablet 00:00: mouth [place] 00 every 6 Medical (six) Branch hours as needed for Nausea and Vomiting (N/V). proMETHazin 2021-05 Yes [id number] 25mg Take 1 [facility] 25 mg 0-30 tablet by [facility] of tablet 00:00: mouth [place] 00 every 6 Medical (six) Branch hours as needed for Nausea and Vomiting (N/V). proMETHazin 2021-05 Yes [id number] 25mg Take 1 [facility] 25 mg 0-30 tablet by [facility]y of tablet 00:00: mouth [place] 00 every 6 Medical (six) Branch hours as needed for Nausea and Vomiting (N/V). proMETHazin 2021-05 Yes [id number] 25mg Take 1 [facility] 25 mg 0-30 tablet by [facility] of tablet 00:00: mouth [place] 00 every 6 Medical (six) Branch hours as needed for Nausea and Vomiting (N/V). proMETHazin 2021-05 Yes [id number] 25mg Take 1 [facility] 25 mg 0-30 tablet by [facility] of tablet 00:00: mouth [place] 00 every 6 Medical (six) Branch hours as needed for Nausea and Vomiting (N/V). proMETHazin 2021-05 Yes [id number] 25mg Take 1 [facility] 25 mg 0-30 tablet by [facility] of tablet 00:00: mouth [place] 00 every 6 Medical (six) Branch hours as needed for Nausea and Vomiting (N/V). proMETHazin 2021-05 Yes [id number] 25mg Take 1 [facility] 25 mg 0-30 tablet by [facility] of tablet 00:00: mouth [place] 00 every 6 Medical (six) Branch hours as needed for Nausea and Vomiting (N/V). proMETHazin 2021-05 Yes [id number] 25mg Take 1 [facility] 25 mg 0-30 tablet by [facility] of tablet 00:00: mouth [place] 00 every 6 Medical (six) Branch hours as needed for Nausea and Vomiting (N/V). proMETHazin 2021-05 Yes [id number] 25mg Take 1 [facility] 25 mg 0-30 tablet by [facility] of tablet 00:00: mouth [place] 00 every 6 Medical (six) Branch hours as needed for Nausea and Vomiting (N/V). proMETHazin 2021-05 Yes [id number] 25mg Take 1 [facility] 25 mg 0-30 tablet by [facility] of tablet 00:00: mouth [place] 00 every 6 Medical (six) Branch hours as needed for Nausea and Vomiting (N/V). proMETHazin 2021-05 Yes [id number] 25mg Take 1 [facility] 25 mg 0-30 tablet by [facility] of tablet 00:00: mouth [place] 00 every 6 Medical (six) Branch hours as needed for Nausea and Vomiting (N/V). proMETHazin 2021-05 Yes [id number] 25mg Take 1 [facility] 25 mg 0-30 tablet by [facility] of tablet 00:00: mouth [place] 00 every 6 Medical (six) Branch hours as needed for Nausea and Vomiting (N/V). proMETHazin 2021-05 Yes [id number] 25mg Take 1 [facility] 25 mg 0-30 tablet by [facility] of tablet 00:00: mouth [place] 00 every 6 Medical (six) Branch hours as needed for Nausea and Vomiting (N/V). proMETHazin 2021-05 Yes [id number] 25mg Take 1 [facility] 25 mg 0-30 tablet by [facility] of tablet 00:00: mouth [place] 00 every 6 Medical (six) Branch hours as needed for Nausea and Vomiting (N/V). proMETHazin 2021-05- No [id number] 25mg Take 1 [facility] e 25 mg 0-30 03-21 tablet by [facility] of tablet 00:00: 00:00 mouth [place] 00 :00 every 6 Medical (six) Branch hours as needed for Nausea and Vomiting (N/V). methocarbam 2021-05- No [id number] 500mg Take 1 [facility] oL 500 mg 0-30 11-26 tablet by it[facility] of tablet 00:00: 00:00 mouth 3 [place] 00 :00 (three) Medical times Branch daily as needed for Pain (scale 7-10). topiramate 2021-05 Yes [id number] 100mg Take 4 [facility] 25 mg 0-21 tablets by [facility] of tablet 00:00: mouth in [place] 00 the Medical morning. [place] topiramate 2021-05 Yes [id number] 100mg Take 4 [facility] 25 mg 0-21 tablets by [facility] of tablet 00:00: mouth in [place] 00 the Medical morning. [place] topiramate 2021-05 Yes [id number] 100mg Take 4 [facility] 25 mg 0-21 tablets by [facility] of tablet 00:00: mouth in [place] 00 the Medical morning. [place] topiramate 2021-05 Yes [id number] 100mg Take 4 [facility] 25 mg 0-21 tablets by [facility] of tablet 00:00: mouth in [place] 00 the Medical morning. [place] topiramate 2021-05 Yes [id number] 100mg Take 4 [facility] 25 mg 0-21 tablets by [facility] of tablet 00:00: mouth in [place] 00 the Medical morning. Branch topiramate 2021-05 Yes [id number] 100mg Take 4 [facility] 25 mg 0-21 tablets by [facility] of tablet 00:00: mouth in [place] 00 the Medical morning. [place] topiramate 2021-05 Yes [id number] 100mg Take 4 [facility] 25 mg 0-21 tablets by [facility] of tablet 00:00: mouth in [place] 00 the Medical morning. Branch topiramate 2021-05 Yes [id number] 100mg Take 4 [facility] 25 mg 0-21 tablets by [facility] of tablet 00:00: mouth in [place] 00 the Medical morning. Branch topiramate 2-1 Yes [id number] 100mg Take 4 [facility] 25 mg 0-21 tablets by [facility] of tablet 00:00: mouth in [place] 00 the Medical morning. Branch topiramate 2-1 Yes [id number] 100mg Take 4 [facility] 25 mg 0-21 tablets by [facility] of tablet 00:00: mouth in [place] 00 the Medical morning. Branch topiramate 2-1 Yes [id number] 100mg Take 4 [facility] 25 mg 0-21 tablets by [facility] of tablet 00:00: mouth in [place] 00 the Medical morning. Branch topiramate 2-1 Yes [id number] 100mg Take 4 [facility] 25 mg 0-21 tablets by [facility] of tablet 00:00: mouth in [place] 00 the Medical morning. Branch topiramate 2-1 Yes [id number] 100mg Take 4 [facility] 25 mg 0-21 tablets by [facility] of tablet 00:00: mouth in [place] 00 the Medical morning. Branch topiramate 2-1 Yes [id number] 100mg Take 4 [facility] 25 mg 0-21 tablets by [facility] of tablet 00:00: mouth in [place] 00 the Medical morning. Branch topiramate 2-1 Yes [id number] 100mg Take 4 [facility] 25 mg 0-21 tablets by [facility] of tablet 00:00: mouth in [place] 00 the Medical morning. Branch topiramate 2-1 Yes [id number] 100mg Take 4 [facility] 25 mg 0-21 tablets by [facility] of tablet 00:00: mouth in [place] 00 the Medical morning. Branch topiramate 2-1 Yes [id number] 100mg Take 4 [facility] 25 mg 0-21 tablets by [facility] of tablet 00:00: mouth in [place] 00 the Medical morning. Branch topiramate 2-1 Yes [id number] 100mg Take 4 [facility] 25 mg 0-21 tablets by [facility] of tablet 00:00: mouth in [place] 00 the Medical morning. Branch topiramate 2022-1 Yes [id number] 100mg Take 4 [facility] 25 mg 0-21 tablets by [facility] of tablet 00:00: mouth in [place] 00 the Medical morning. Branch topiramate 2-1 Yes [id number] 100mg Take 4 [facility] 25 mg 0-21 tablets by [facility] of tablet 00:00: mouth in [place] 00 the Medical morning. Branch topiramate 2-1 Yes [id number] 100mg Take 4 [facility] 25 mg 0-21 tablets by [facility] of tablet 00:00: mouth in [place] 00 the Medical morning. Branch topiramate 2-1 Yes [id number] 100mg Take 4 [facility] 25 mg 0-21 tablets by [facility] of tablet 00:00: mouth in [place] 00 the Medical morning. Branch topiramate 2-1 Yes [id number] 100mg Take 4 [facility] 25 mg 0-21 tablets by [facility] of tablet 00:00: mouth in [place] 00 the Medical morning. Branch topiramate 2-1 Yes [id number] 100mg Take 4 [facility] 25 mg 0-21 tablets by [facility]y of tablet 00:00: mouth in [place] 00 the Medical morning. Branch topiramate 2-1 Yes [id number] 100mg Take 4 [facility] 25 mg 0-21 tablets by ity of tablet 00:00: mouth in [place] 00 the Medical morning. Branch topiramate 2021-1 Yes [id number] 100mg Take 4 [facility] 25 mg 0-21 tablets by ity of tablet 00:00: mouth in [place] 00 the Medical morning. Branch topiramate 2-1 Yes [id number] 100mg Take 4 [facility] 25 mg 0-21 tablets by ity of tablet 00:00: mouth in [place] 00 the Medical morning. Branch topiramate 2-1 Yes [id number] 100mg Take 4 [facility] 25 mg 0-21 tablets by [facility]y of tablet 00:00: mouth in [place] 00 the Medical morning. Branch topiramate 2-1 Yes [id number] 100mg Take 4 [facility] 25 mg 0-21 tablets by ity of tablet 00:00: mouth in [place] 00 the Medical morning. Branch topiramate 2-1 Yes [id number] 100mg Take 4 [facility] 25 mg 0-21 tablets by ity of tablet 00:00: mouth in [place] 00 the Medical morning. Branch topiramate 2022-1 Yes [id number] 100mg Take 4 [facility] 25 mg 0-21 tablets by ity of tablet 00:00: mouth in [place] 00 the Medical morning. Branch topiramate 2-1 Yes [id number] 100mg Take 4 [facility] 25 mg 0-21 tablets by ity of tablet 00:00: mouth in [place] 00 the Medical morning. Branch topiramate 2022-1 Yes [id number] 100mg Take 4 [facility] 25 mg 0-21 tablets by ity of tablet 00:00: mouth in [place] 00 the Medical morning. Branch topiramate 2021-05 Yes [id number] 100mg Take 4 [facility] 25 mg 0-21 tablets by [facility]y of tablet 00:00: mouth in [place] 00 the Medical morning. Branch topiramate 2021- Yes [id number] 100mg Take 4 [facility] 25 mg 0-21 tablets by ity of tablet 00:00: mouth in [place] 00 the Medical morning. Branch topiramate 2021- Yes [id number] 100mg Take 4 [facility] 25 mg 0-21 tablets by ity of tablet 00:00: mouth in [place] 00 the Medical morning. Branch topiramate 2021- Yes [id number] 100mg Take 4 [facility] 25 mg 0-21 tablets by ity of tablet 00:00: mouth in [place] 00 the Medical morning. Branch topiramate 2021-05 Yes [id number] 100mg Take 4 [facility] 25 mg 0-21 tablets by ity of tablet 00:00: mouth in [place] 00 the Medical morning. Branch topiramate 2021-05 Yes [id number] 100mg Take 4 [facility] 25 mg 0-21 tablets by ity of tablet 00:00: mouth in [place] 00 the Medical morning. Branch topiramate 2021-05 Yes [id number] 100mg Take 4 [facility] 25 mg 0-21 tablets by ity of tablet 00:00: mouth in [place] 00 the Medical morning. Branch topiramate 2021-05 Yes [id number] 100mg Take 4 [facility] 25 mg 0-21 tablets by ity of tablet 00:00: mouth in [place] 00 the Medical morning. Branch topiramate 2021-05 Yes [id number] 100mg Take 4 [facility] 25 mg 0-21 tablets by ity of tablet 00:00: mouth in [place] 00 the Medical morning. Branch topiramate 2021-05 Yes [id number] 100mg Take 4 [facility] 25 mg 0-21 tablets by ity of tablet 00:00: mouth in [place] 00 the Medical morning. Branch diphenhydrA 2021-05- [...] 28 :00 Medical Branch albuterol 2021-05 Yes [id number] 2{puff} Inhale 2 [facility] 90 0-18 Puffs ity of mcg/actuati 00:00: every 6 [place] as on inhaler 00 (six) Medical hours as Branch needed for Wheezing or Shortness of Breath. albuterol 2021-05 Yes [id number] 2{puff} Inhale 2 [facility] 90 0-18 Puffs ity of mcg/actuati 00:00: every 6 [place] as on inhaler 00 (six) Medical hours as Branch needed for Wheezing or Shortness of Breath. albuterol 2021-05 Yes [id number] 2{puff} Inhale 2 [facility] 90 0-18 Puffs ity of mcg/actuati 00:00: every 6 [place] on inhaler 00 (six) Medical hours as Branch needed for Wheezing or Shortness of Breath. albuterol 2021-05 Yes [id number] 2{puff} Inhale 2 [facility] 90 0-18 Puffs ity of mcg/actuati 00:00: every 6 [place] on inhaler 00 (six) Medical hours as Branch needed for Wheezing or Shortness of Breath. albuterol 2021-05 Yes [id number] 2{puff} Inhale 2 [facility] 90 0-18 Puffs ity of mcg/actuati 00:00: every 6 [place] on inhaler 00 (six) Medical hours as Branch needed for Wheezing or Shortness of Breath. albuterol 2021-05 Yes [id number] 2{puff} Inhale 2 [facility] 90 0-18 Puffs ity of mcg/actuati 00:00: every 6 [place] on inhaler 00 (six) Medical hours as Branch needed for Wheezing or Shortness of Breath. albuterol 2021-05 Yes [id number] 2{puff} Inhale 2 [facility] 90 0-18 Puffs ity of mcg/actuati 00:00: every 6 [place] on inhaler 00 (six) Medical hours as Branch needed for Wheezing or Shortness of Breath. albuterol 2021-05 Yes [id number] 2{puff} Inhale 2 [facility] 90 0-18 Puffs ity of mcg/actuati 00:00: every 6 [place] on inhaler 00 (six) Medical hours as Branch needed for Wheezing or Shortness of Breath. albuterol 2021-05 Yes [id number] 2{puff} Inhale 2 [facility] 90 0-18 Puffs ity of mcg/actuati 00:00: every 6 [place] on inhaler 00 (six) Medical hours as Branch needed for Wheezing or Shortness of Breath. albuterol 2021-05 Yes [id number] 2{puff} Inhale 2 [facility] 90 0-18 Puffs ity of mcg/actuati 00:00: every 6 [place] on inhaler 00 (six) Medical hours as Branch needed for Wheezing or Shortness of Breath. albuterol 2021-05 Yes [id number] 2{puff} Inhale 2 [facility] 90 0-18 Puffs ity of mcg/actuati 00:00: every 6 [place] on inhaler 00 (six) Medical hours as Branch needed for Wheezing or Shortness of Breath. albuterol 2021-05 Yes [id number] 2{puff} Inhale 2 [facility] 90 0-18 Puffs ity of mcg/actuati 00:00: every 6 [place] on inhaler 00 (six) Medical hours as Branch needed for Wheezing or Shortness of Breath. albuterol 2021-05 Yes [id number] 2{puff} Inhale 2 [facility] 90 0-18 Puffs ity of mcg/actuati 00:00: every 6 [place] on inhaler 00 (six) Medical hours as Branch needed for Wheezing or Shortness of Breath. albuterol 2021-05 Yes [id number] 2{puff} Inhale 2 [facility] 90 0-18 Puffs ity of mcg/actuati 00:00: every 6 [place] on inhaler 00 (six) Medical hours as Branch needed for Wheezing or Shortness of Breath. albuterol 2021-05 Yes [id number] 2{puff} Inhale 2 [facility] 90 0-18 Puffs ity of mcg/actuati 00:00: every 6 [place] on inhaler 00 (six) Medical hours as Branch needed for Wheezing or Shortness of Breath. albuterol 2021-05 Yes [id number] 2{puff} Inhale 2 [facility] 90 0-18 Puffs ity of mcg/actuati 00:00: every 6 [place] on inhaler 00 (six) Medical hours as Branch needed for Wheezing or Shortness of Breath. albuterol 2021-05 Yes [id number] 2{puff} Inhale 2 [facility] 90 0-18 Puffs ity of mcg/actuati 00:00: every 6 [place] on inhaler 00 (six) Medical hours as Branch needed for Wheezing or Shortness of Breath. albuterol 2021-05 Yes [id number] 2{puff} Inhale 2 [facility] 90 0-18 Puffs ity of mcg/actuati 00:00: every 6 [place] on inhaler 00 (six) Medical hours as Branch needed for Wheezing or Shortness of Breath. albuterol 2021-05 Yes [id number] 2{puff} Inhale 2 [facility] 90 0-18 Puffs ity of mcg/actuati 00:00: every 6 [place] on inhaler 00 (six) Medical hours as Branch needed for Wheezing or Shortness of Breath. albuterol 2021-05 Yes [id number] 2{puff} Inhale 2 [facility] 90 0-18 Puffs ity of mcg/actuati 00:00: every 6 [place] on inhaler 00 (six) Medical hours as Branch needed for Wheezing or Shortness of Breath. albuterol 2021-05 Yes [id number] 2{puff} Inhale 2 [facility] 90 0-18 Puffs ity of mcg/actuati 00:00: every 6 [place] on inhaler 00 (six) Medical hours as Branch needed for Wheezing or Shortness of Breath. albuterol 2021-05 Yes [id number] 2{puff} Inhale 2 [facility] 90 0-18 Puffs ity of mcg/actuati 00:00: every 6 [place] on inhaler 00 (six) Medical hours as Branch needed for Wheezing or Shortness of Breath. albuterol 2021-05 Yes [id number] 2{puff} Inhale 2 [facility] 90 0-18 Puffs ity of mcg/actuati 00:00: every 6 [place] on inhaler 00 (six) Medical hours as Branch needed for Wheezing or Shortness of Breath. albuterol 2021-05 Yes [id number] 2{puff} Inhale 2 [facility] 90 0-18 Puffs ity of mcg/actuati 00:00: every 6 [place] on inhaler 00 (six) Medical hours as Branch needed for Wheezing or Shortness of Breath. albuterol 2021-05 Yes [id number] 2{puff} Inhale 2 [facility] 90 0-18 Puffs ity of mcg/actuati 00:00: every 6 [place] on inhaler 00 (six) Medical hours as Branch needed for Wheezing or Shortness of Breath. albuterol 2021-05 Yes [id number] 2{puff} Inhale 2 [facility] 90 0-18 Puffs ity of mcg/actuati 00:00: every 6 [place] on inhaler 00 (six) Medical hours as Branch needed for Wheezing or Shortness of Breath. albuterol 2021-05 Yes [id number] 2{puff} Inhale 2 [facility] 90 0-18 Puffs ity of mcg/actuati 00:00: every 6 [place] on inhaler 00 (six) Medical hours as Branch needed for Wheezing or Shortness of Breath. albuterol 2021-05 Yes [id number] 2{puff} Inhale 2 [facility] 90 0-18 Puffs ity of mcg/actuati 00:00: every 6 [place] on inhaler 00 (six) Medical hours as Branch needed for Wheezing or Shortness of Breath. albuterol 2021-05 Yes [id number] 2{puff} Inhale 2 [facility] 90 0-18 Puffs ity of mcg/actuati 00:00: every 6 [place] on inhaler 00 (six) Medical hours as Branch needed for Wheezing or Shortness of Breath. albuterol 2021-05 Yes [id number] 2{puff} Inhale 2 [facility] 90 0-18 Puffs ity of mcg/actuati 00:00: every 6 [place] on inhaler 00 (six) Medical hours as Branch needed for Wheezing or Shortness of Breath. albuterol 2021-05 Yes [id number] 2{puff} Inhale 2 [facility] 90 0-18 Puffs ity of mcg/actuati 00:00: every 6 [place] on inhaler 00 (six) Medical hours as Branch needed for Wheezing or Shortness of Breath. albuterol 2021-05 Yes [id number] 2{puff} Inhale 2 [facility] 90 0-18 Puffs ity of mcg/actuati 00:00: every 6 [place] on inhaler 00 (six) Medical hours as Branch needed for Wheezing or Shortness of Breath. albuterol 2021-05 Yes [id number] 2{puff} Inhale 2 [facility] 90 0-18 Puffs ity of mcg/actuati 00:00: every 6 [place] on inhaler 00 (six) Medical hours as Branch needed for Wheezing or Shortness of Breath. albuterol 2021-05 Yes [id number] 2{puff} Inhale 2 [facility] 90 0-18 Puffs ity of mcg/actuati 00:00: every 6 [place] on inhaler 00 (six) Medical hours as Branch needed for Wheezing or Shortness of Breath. albuterol 2021-05 Yes [id number] 2{puff} Inhale 2 [facility] 90 0-18 Puffs ity of mcg/actuati 00:00: every 6 [place] as on inhaler 00 (six) Medical hours as Branch needed for Wheezing or Shortness of Breath. albuterol 2021-05 Yes [id number] 2{puff} Inhale 2 [facility] 90 0-18 Puffs ity of mcg/actuati 00:00: every 6 [place] as on inhaler 00 (six) Medical hours as Branch needed for Wheezing or Shortness of Breath. albuterol 2021-05 Yes [id number] 2{puff} Inhale 2 [facility] 90 0-18 Puffs ity of mcg/actuati 00:00: every 6 [place] as on inhaler 00 (six) Medical hours as Branch needed for Wheezing or Shortness of Breath. albuterol 2021-05 Yes [id number] 2{puff} Inhale 2 [facility] 90 0-18 Puffs ity of mcg/actuati 00:00: every 6 [place] as on inhaler 00 (six) Medical hours as Branch needed for Wheezing or Shortness of Breath. albuterol 2021-05 Yes [id number] 2{puff} Inhale 2 [facility] 90 0-18 Puffs ity of mcg/actuati 00:00: every 6 [place] as on inhaler 00 (six) Medical hours as Branch needed for Wheezing or Shortness of Breath. albuterol 2021-05 Yes [id number] 2{puff} Inhale 2 [facility] 90 0-18 Puffs ity of mcg/actuati 00:00: every 6 [place] on inhaler 00 (six) Medical hours as Branch needed for Wheezing or Shortness of Breath. albuterol 2021-05 Yes [id number] 2{puff} Inhale 2 [facility] 90 0-18 Puffs ity of mcg/actuati 00:00: every 6 [place] as on inhaler 00 (six) Medical hours as Branch needed for Wheezing or Shortness of Breath. albuterol 2021-05 Yes [id number] 2{puff} Inhale 2 [facility] 90 0-18 Puffs ity of mcg/actuati 00:00: every 6 [place] as on inhaler 00 (six) Medical hours as Branch needed for Wheezing or Shortness of Breath. albuterol 2021-05 Yes [id number] 2{puff} Inhale 2 [facility] 90 0-18 Puffs ity of mcg/actuati 00:00: every 6 [place] as on inhaler 00 (six) Medical hours as Branch needed for Wheezing or Shortness of Breath. albuterol 2021-05 Yes [id number] 2{puff} Inhale 2 [facility] 90 0-18 Puffs ity of mcg/actuati 00:00: every 6 [place] as on inhaler 00 (six) Medical hours as Branch needed for Wheezing or Shortness of Breath. albuterol 2021-05 Yes [id number] 2{puff} Inhale 2 [facility] 90 0-18 Puffs ity of mcg/actuati 00:00: every 6 [place] as on inhaler 00 (six) Medical hours as Branch needed for Wheezing or Shortness of Breath. albuterol 2021-05 Yes [id number] 2{puff} Inhale 2 [facility] 90 0-18 Puffs ity of mcg/actuati 00:00: every 6 [place] as on inhaler 00 (six) Medical hours as Branch needed for Wheezing or Shortness of Breath. albuterol 2021-05 Yes [id number] 2{puff} Inhale 2 [facility] 90 0-18 Puffs ity of mcg/actuati 00:00: every 6 [place] as on inhaler 00 (six) Medical hours as Branch needed for Wheezing or Shortness of Breath. albuterol 2021-05 Yes [id number] 2{puff} Inhale 2 [facility] 90 0-18 Puffs [...] a 24 hour period. benzonatate 2021-05- No [id number] 200mg Take 1 [facility] 200 mg 0-18 10-26 capsule by ity of capsule 00:00: 04:59 mouth 3 [place] 00 :00 (three) Medical times Branch daily as needed for Cough for up to 7 days. benzonatate 2021-05- No [id number] 200mg Take 1 [facility] 200 mg 0-18 10-26 capsule by ity of capsule 00:00: 04:59 mouth 3 [place] 00 :00 (three) Medical times Branch daily as needed for Cough for up to 7 days. benzonatate 2021-05- No [id number] 200mg Take 1 [facility] 200 mg 0-18 10-26 capsule by ity of capsule 00:00: 04:59 mouth 3 [place] 00 :00 (three) Medical times Branch daily as needed for Cough for up to 7 days. benzonatate 2021-05- No [id number] 200mg Take 1 [facility] 200 mg 0-18 10-26 capsule by ity of capsule 00:00: 04:59 mouth 3 [place] 00 :00 (three) Medical times Branch daily as needed for Cough for up to 7 days. benzonatate 2021-05- No [id number] 200mg Take 1 [facility] 200 mg 0-18 10-26 capsule by ity of capsule 00:00: 04:59 mouth 3 [place] 00 :00 (three) Medical times Branch daily as needed for Cough for up to 7 days. benzonatate 2021-05- No [id number] 200mg Take 1 [facility] 200 mg 0-18 10-26 capsule by ity of capsule 00:00: 04:59 mouth 3 [place] 00 :00 (three) Medical times Branch daily as needed for Cough for up to 7 days. SUMAtriptan 2021-05- No [id number] 50mg Take 1 [facility] 50 mg 0-18 -05 tablet by it[facility] of tablet 00:00: 04:59 mouth [place] 00 :[place] now for 1 Medical dose. [place] SUMAtriptan 2021-05- No [id number] 50mg Take 1 [facility] 50 mg 0-18 - 9105 tablet by it[facility] of tablet 00:00: 04:[place] :[place] now for 1 Medical dose. [place] butalbital- 2021-05- No 1{tbl} 1 tablet, Univers [...] :00 ONCE, 1 Medical dose, On Branch [facility] 02/21/22 at 0130, [place] diphenhydrA 2021-05 No 25mg 25 mg, Uni vers MINE 002-21 Slow IV ity of (BENADRYL) 06:30: 06:38 [place], [place] injection 00 :00 ONCE, 1 Medical 25 mg dose, On Branch Sat02/21/22 at 0130, [place] FENTanyl PF 2021-05 No 50ug 50 mcg, Un sushant (SUBLIMAZE 002-18 Slow IV ity o f (PF)) 20:30: 19:44 [place], [place] injection 00 :00 ONCE, 1 Medical 50 mcg dose, On [facility] 02/18/22 at 1530, Routine ketorolac 2021-05 No 30mg 30 mg, Unive rs (TORADOL) 002-18 Slow IV ity of injection 20:15: 20:09 Push, [place] 30 mg 00 :00 ONCE, 1 Medical dose, On [facility] 02/18/22 at 1515, [place] iopamidol 2021-05 No [id number] 60mL 60 mL, Un sushant (ISOVUE 02-18 Intravenou ity o f 370-500 mL) 19:30: 17:30 s, ONCE, 1 [place] injection 00 :00 dose, On Medica l 60 mL [facility] 02/18/22 at 1430, Routine proMETHazin 2021-05 No 12.5mg 12.5 mg, Univers e 002-18 IV ity of (PHENERGAN) 18:15: 18:19 Piggyback, [place] 12.5 mg in 00 :00 ONCE, 1 Medica l NaCl 0.9% dose, On Branch (NS) 50 mL Sun IV 02/18/22 at piggyback 1315, [place] FENTanyl PF 2021-05 No 50ug 50 mcg, Un sushant (SUBLIMAZE 009 Slow IV ity o f (PF)) 18:00: 17:26 Push, [place] injection 00 :00 ONCE, 1 Medical 50 mcg dose, On Branch [facility] [place] 02/18/22 at 1300, Routine ondansetron 2021-05- No 4mg 4 mg, Slow Univers (ZOFRAN 02-18 IV Push, ity of (PF)) 17:15: 17:27 ONCE, 1 [place] injection 4 00 :00 dose, On Medi yessi mg [facility] 02/18/22 at 1215, [place] morpHINE (2 2021- No 4mg 4 mg, Slow Univers mg/mL) 01-18 IV Push, ity of injection 4 15:15: 14:49 ONCE, 1 [place] mg 00 :00 dose, On [facility] 01/18/22 Branch at 1015, STAT ondansetron 2021- No 4mg 4 mg, Slow Univers (ZOFRAN 01-18 IV Push, ity of (PF)) 13:30: 13:33 ONCE, 1 [place] injection 4 00 :00 dose, On Medi yessi mg [facility] 01/18/22 Branch at 0830, [place] morpHINE (4 2021-2021- No 4mg 4 mg, Slow Univers mg/mL) 01-18 IV Push, ity of injection 4 13:30: 13:34 ONCE, 1 [place] mg 00 :00 dose, On [facility] 01/18/22 Branch at 0830, STAT morpHINE (4 0 2021- No 4mg 4 mg, Slow Univers mg/mL) 01-18 IV Push, ity of injection 4 12:30: 11:39 ONCE, 1 [place] mg 00 :00 dose, On [facility] 01/18/22 Branch at 0730, STAT famotidine 2021-2021- No 20mg 20 mg, Univ ers (PEPCID 01-18 Slow IV ity of (PF)) 11:30: 10:52 Push, [place] injection 00 :00 ONCE, 1 Medical 20 mg dose, On Branch [facility] 01/18/22 at 0630, [place] ondansetron 2021-0 2022- No 4mg 4 mg, Slow Univers (ZOFRAN 01-18 IV Push, ity of (PF)) 11:30: 10:52 ONCE, 1 [place] injection 4 00 :00 dose, On Medi yessi mg [facility] 01/18/22 Branch at 0630, [place] iodixanoL 2021- No [id number] 80mL 80 mL, U nivers (VISIPAQUE 01-18 [...] 01/18/22 Branch at 0545, STAT traMADoL 50 0 Yes [id number] 50mg Take 1 Univ ers mg tablet 01-18 tablet by ity o f 00:00: mouth [place] 00 every 6 Medical (six) Branch hours as needed for Pain (scale 7-10). Indication s: acute pain ondansetron 0 Yes [id number] 4mg Take 1 Univers 4 mg 01-18 [id number] tablet by ity of disintegrat 00:00: mouth [place] ing tablet 00 every 8 Medica l (eight) Branch hours as needed for Nausea and Vomiting (N/V). ibuprofen 2021-0 Yes [id number] 600mg Take 1 [facility] 600 mg 01-18 [id number] tablet by ity of tablet 00:00: mouth [place] 00 every 6 Medical (six) Branch hours as needed for Pain (scale 4-6). traMADoL 50 2021-0 Yes [id number] 50mg Take 1 Univ ers mg tablet -08 tablet by ity o f 00:00: mouth [place] 00 every 6 Medical (six) Branch hours as needed for Pain (scale 7-10). Indication s: acute pain ondansetron 2022-0 Yes [id number] 4mg Take 1 Univers 4 mg 9-08 [id number] tablet by ity of disintegrat 00:00: mouth [place] ing tablet 00 every 8 Medica l (eight) Branch hours as needed for Nausea and Vomiting (N/V). ibuprofen 2022-0 Yes [id number] 600mg Take 1 Univers 600 mg 9-08 [id number] tablet by ity of tablet 00:00: mouth [place] 00 every 6 Medical (six) Branch hours as needed for Pain (scale 4-6). traMADoL 50 2021-0 Yes [id number] 50mg Take 1 Univ ers mg tablet 9-08 tablet by ity o f 00:00: mouth [place] 00 every 6 Medical (six) Branch hours as needed for Pain (scale 7-10). Indication s: acute pain ondansetron 2022-0 Yes [id number] 4mg Take 1 Univers 4 mg 9-08 [id number] tablet by ity of disintegrat 00:00: mouth [place] ing tablet 00 every 8 Medica l (eight) Branch hours as needed for Nausea and Vomiting (N/V). ibuprofen 2022-0 Yes [id number] 600mg Take 1 Univers 600 mg 9-08 [id number] tablet by ity of tablet 00:00: mouth [place] 00 every 6 Medical (six) Branch hours as needed for Pain (scale 4-6). traMADoL 50 2-0 Yes [id number] 50mg Take 1 Univ ers mg tablet 9-08 tablet by ity o f 00:00: mouth [place] 00 every 6 Medical (six) Branch hours as needed for Pain (scale 7-10). Indication s: acute pain ondansetron 2022-0 Yes [id number] 4mg Take 1 Univers 4 mg 9-08 [id number] tablet by ity of disintegrat 00:00: mouth [place] ing tablet 00 every 8 Medica l (eight) Branch hours as needed for Nausea and Vomiting (N/V). ibuprofen 2022-0 Yes [id number] 600mg Take 1 Univers 600 mg 9-08 [id number] tablet by ity of tablet 00:00: mouth [place] 00 every 6 Medical (six) Branch hours as needed for Pain (scale 4-6). traMADoL 50 2022-0 Yes [id number] 50mg Take 1 Univ ers mg tablet 9-08 tablet by ity o f 00:00: mouth [place] 00 every 6 Medical (six) Branch hours as needed for Pain (scale 7-10). Indication s: acute pain ondansetron 2022-0 Yes [id number] 4mg Take 1 Univers 4 mg 9-08 [id number] tablet by ity of disintegrat 00:00: mouth [place] ing tablet 00 every 8 Medica l (eight) Branch hours as needed for Nausea and Vomiting (N/V). ibuprofen 2022-0 Yes [id number] 600mg Take 1 Univers 600 mg 9-08 [id number] tablet by ity of tablet 00:00: mouth [place] 00 every 6 Medical (six) Branch hours as needed for Pain (scale 4-6). traMADoL 50 2021-0 Yes [id number] 50mg Take 1 Univ ers mg tablet 9-08 tablet by ity o f 00:00: mouth [place] 00 every 6 Medical (six) Branch hours as needed for Pain (scale 7-10). Indication s: acute pain ondansetron 2022-0 Yes [id number] 4mg Take 1 Univers 4 mg 9-08 [id number] tablet by ity of disintegrat 00:00: mouth [place] ing tablet 00 every 8 Medica l (eight) Branch hours as needed for Nausea and Vomiting (N/V). ibuprofen 2022-0 Yes [id number] 600mg Take 1 Univers 600 mg 9-08 [id number] tablet by ity of tablet 00:00: mouth [place] 00 every 6 Medical (six) Branch hours as needed for Pain (scale 4-6). traMADoL 50 2022-0 Yes [id number] 50mg Take 1 Univ ers mg tablet 9-08 tablet by ity o f 00:00: mouth [place] 00 every 6 Medical (six) Branch hours as needed for Pain (scale 7-10). Indication s: acute pain ondansetron 2022-0 Yes [id number] 4mg Take 1 Univers 4 mg 9-08 [id number] tablet by ity of disintegrat 00:00: mouth [place] ing tablet 00 every 8 Medica l (eight) Branch hours as needed for Nausea and Vomiting (N/V). ibuprofen 2022-0 Yes [id number] 600mg Take 1 Univers 600 mg 9-08 [id number] tablet by ity of tablet 00:00: mouth [place] 00 every 6 Medical (six) Branch hours as needed for Pain (scale 4-6). traMADoL 50 2021-0 Yes [id number] 50mg Take 1 Univ ers mg tablet 9-08 tablet by ity o f 00:00: mouth [place] 00 every 6 Medical (six) Branch hours as needed for Pain (scale 7-10). Indication s: acute pain ondansetron 2021-0 Yes [id number] 4mg Take 1 Univers 4 mg 9- [id number] tablet by ity of disintegrat 00:00: mouth [place] ing tablet 00 every 8 Medica l (eight) Branch hours as needed for Nausea and Vomiting (N/V). ibuprofen 2021-0 Yes [id number] 600mg Take 1 Univers 600 mg 9- [id number] tablet by ity of tablet 00:00: mouth [...] Indication s: acute pain ondansetron 2021-2021- No [id number] 4mg Take 1 Univers 4 mg -12 20- [id number] tablet by ity of disintegrat 00:00: 00:00 [place] ing tablet 00 :00 every 8 Medica l (eight) Branch hours as needed for Nausea and Vomiting (N/V). ibuprofen 2021-0 2021- No [id number] 600mg Take 1 Univers 600 mg 9-12 20- [id number] tablet by ity o f tablet 00:00: [...] s: acute pain ondansetron 2021-0 2021- No [id number] 4mg Take 1 Univers 4 mg 9-08 10-18 [id number] tablet by ity of disintegrat 00:00: 00:00 [place] tablet 00 :00 every 8 Medica l (eight) Branch hours as needed for Nausea and Vomiting (N/V). ibuprofen 2021-2021- No [id number] 600mg Take 1 Univers 600 mg 01-18 [id number] tablet by ity o f tablet 00:00: [...] Indication s: acute pain ondansetron 2021-2021- No [id number] 4mg Take 1 Univers 4 mg 01-18 [id number] tablet by ity of disintegrat 00:00: 00:00 [place] tablet 00 :00 every 8 Medica l (eight) Branch hours as needed for Nausea and Vomiting (N/V). ibuprofen 2021-2021- No [id number] 600mg Take 1 Univers 600 mg 01-18 [id number] tablet by ity o f tablet 00:00: [...] (scale 7-10). Indication s: acute pain ondansetron 2021-2- No [id number] 4mg Take 1 Univers 4 mg 01-18 [id number] tablet by ity of disintegrat 00:00: 00:00 [place] tablet 00 :00 every 8 Medica l (eight) Branch hours as needed for Nausea and Vomiting (N/V). ibuprofen 2021-2- No [id number] 600mg Take 1 Univers 600 mg 01-18 [id number] tablet by ity o f tablet 00:00: 00:00 mouth [place] 00 :00 every 6 Medical (six) Branch hours as needed for Pain (scale 4-6). predniSONE 2021-2021- No [id number] 40mg Take 2 Univers 20 mg 01-16 tablets by ity of tablet 00:00: 04:59 mouth in [place] 00 :00 the Medical [facility] Branch for 7 days. predniSONE 2021-2021- No [id number] 40mg Take 2 Univers 20 mg 01-16 tablets by ity of tablet 00:00: 04:59 mouth in [place] 00 :00 the [facility] Branch for 7 days. morpHINE (4 2021- No 4mg 4 mg, Slow Univers mg/mL) 01-15 IV Push, ity of injection 4 16:15: 15:28 ONCE, 1 [place] mg 00 :00 dose, On Medical [facility] 01/15/22 Branch at 1115, [place] proMETHazin No 12.5mg 12.5 mg, Univers e 01-15 IV ity of (PHENERGAN) 15:30: 15:28 Piggyback, [place] 12.5 mg in 00 :00 ONCE, 1 [...] [place] mg 00 :00 dose, On Medical [facility] 01/15/22 Branch at 1000, [place] ondansetron 2021- No 8mg 8 mg, Slow Univers (ZOFRAN 01-15 IV Push, ity of (PF)) 14:15: 14:37 ONCE, 1 [place] injection 8 00 :00 dose, On Medi yessi mg 01/15/22 Branch at 0915, [place] dexamethaso 2021-2021- No 10mg 10 mg, Uni vers ne sod phos 01-15 Slow IV ity of PF 14:15: 14:37 Push, [place] injection 00 :00 ONCE, 1 Medical 10 mg dose, On Branch 01/15/22 at 0915, 1 mL proMETHazin 2021-0 Yes [id number] 25mg Take 1 Univers e 25 mg 9-05 tablet by ity of tablet 00:00: mouth [place] 00 every 6 Medical (six) Branch hours as needed for Nausea and Vomiting (N/V). proMETHazin 2021-0 Yes [id number] 25mg Take 1 Univers e 25 mg 9-05 tablet by ity of tablet 00:00: mouth [place] 00 every 6 Medical (six) Branch hours as needed for Nausea and Vomiting (N/V). proMETHazin 2021-0 Yes [id number] 25mg Take 1 Univers e 25 mg 9-05 tablet by ity of tablet 00:00: mouth [place] 00 every 6 Medical (six) Branch hours as needed for Nausea and Vomiting (N/V). proMETHazin 2021-0 Yes [id number] 25mg Take 1 Univers e 25 mg 9-05 tablet by ity of tablet 00:00: mouth [place] 00 every 6 Medical (six) Branch hours as needed for Nausea and Vomiting (N/V). proMETHazin 2021-0 Yes [id number] 25mg Take 1 Univers e 25 mg 9-05 tablet by ity of tablet 00:00: mouth [place] 00 every 6 Medical (six) Branch hours as needed for Nausea and Vomiting (N/V). proMETHazin 2021-0 Yes [id number] 25mg Take 1 Univers e 25 mg 9-05 tablet by ity of tablet 00:00: mouth [place] 00 every 6 Medical (six) Branch hours as needed for Nausea and Vomiting (N/V). proMETHazin 2021-0 Yes [id number] 25mg Take 1 Univers e 25 mg 9-05 tablet by ity of tablet 00:00: mouth [place] 00 every 6 Medical (six) Branch hours as needed for Nausea and Vomiting (N/V). proMETHazin 2021-0 Yes [id number] 25mg Take 1 Univers e 25 mg 9-05 tablet by ity of tablet 00:00: mouth [place] 00 every 6 Medical (six) Branch hours as needed for Nausea and Vomiting (N/V). proMETHazin 2021- Yes [id number] 25mg Take 1 Univers e 25 mg 9-05 tablet by ity of tablet 00:00: mouth [place] 00 every 6 Medical (six) Branch hours as needed for Nausea and Vomiting (N/V). proMETHazin 2021- No [id number] 25mg Take 1 Univers e 25 mg 9-05 10-18 tablet by ity of tablet 00:00: 00:00 mouth [place] 00 :00 every 6 Medical (six) Branch hours as needed for Nausea and Vomiting (N/V). proMETHazin 2021- No [id number] 25mg Take 1 Univers e 25 mg 9-05 10-18 tablet by ity of tablet 00:00: 00:00 mouth [place] 00 :00 every 6 Medical (six) Branch hours as needed for Nausea and Vomiting (N/V). proMETHazin 2021- No [id number] 25mg Take 1 Univers e 25 mg 9-05 10-18 tablet by ity of tablet 00:00: 00:00 mouth [place] 00 :00 every 6 Medical (six) Branch hours as needed for Nausea and Vomiting (N/V). proMETHazin 2021- No [id number] 25mg Take 1 Univers e 25 mg 9-05 10-18 tablet by ity of tablet 00:00: 00:00 mouth [place] 00 :00 every 6 Medical (six) Branch hours as needed for Nausea and Vomiting (N/V). ondansetron No 4mg 4 mg, Univ ers (ZOFRAN-ODT 01-09 08-30 Oral, ity of ) 01:45: 00:56 ONCE, 1 [place] disintegrat 00 :00 dose, On Medi yessi ing tablet Mon Branch 4 mg 01/08/22 at 2044, Routine HYDROcodone 2021- No 1{tbl} 1 tablet, Univers -acetaminop 01-09 08-30 Oral, ity of hen (NORCO 00:45: 00:37 ONCE, 1 [place] 5) 5-325 mg 00 :00 dose, On Medi yessi tablet 1 Mon Branch tablet 01/08/22 at 1945, [place] diphenhydrA 0 2021- No 25mg 25 mg, Uni vers MINE 01-08 Slow IV ity of (BENADRYL) 23:45: 23:51 Push, [place] injection 00 :00 ONCE, 1 Medical 25 mg dose, On Branch Sat01/08/22 at 1845, STAT dexamethaso 2021- No 10mg 10 mg, Uni vers ne sod phos 01-08 Slow IV ity of PF 23:45: 23:50 Push, [place] injection 00 :00 ONCE, 1 Medical 10 mg dose, On Branch Sat01/08/22 at 1845, 1 mL ketorolac 2021- No 30mg 30 mg, Unive rs (TORADOL) 01-08 Slow IV ity of injection 23:45: 23:51 Push, [place] 30 mg 00 :00 ONCE, 1 Medical dose, On Branch Sat01/08/22 at 1845, [place] ondansetron 0 Yes [id number] 4mg Take 1 Univers 4 mg 8-29 tablet by ity of disintegrat 00:00: mouth [place] ing tablet 00 every 8 Medica l (eight) Branch hours as needed for Nausea and Vomiting (N/V). acetaminoph Yes [id number] 650mg Take 1 Univers en (TYLENOL 8-29 tablet by ity of ARTHRITIS 00:00: mouth [place] PAIN) 650 00 every 8 Medical mg CR (eight) Branch tablet hours as needed for Pain. ketorolac 0 Yes [id number] 10mg Take 1 U nivers 10 mg 8-29 tablet by ity of tablet 00:00: mouth [place] 00 every 6 Medical (six) Branch hours as needed for Pain (scale 4-6) or Pain (scale 7-10). metaxalone 2021-0 Yes [id number] 800mg Take 1 Univers (SKELAXIN) 8-29 tablet by ity of 800 mg 00:00: mouth in [place] tablet 00 the Medical morning Branch and 1 tablet at noon and 1 tablet in the evening. ondansetron 0 Yes [id number] 4mg Take 1 Univers 4 mg 8-29 tablet by ity of disintegrat 00:00: mouth [place] ing tablet 00 every 8 Medica l (eight) Branch hours as needed for Nausea and Vomiting (N/V). acetaminoph 2022-0 Yes [id number] 650mg Take 1 Univers en (TYLENOL 8-29 tablet by ity of ARTHRITIS 00:00: mouth [place] PAIN) 650 00 every 8 Medical mg CR (eight) Branch tablet hours as needed for Pain. ketorolac 2022-0 Yes [id number] 10mg Take 1 U nivers 10 mg 8-29 tablet by ity of tablet 00:00: mouth [place] 00 every 6 Medical (six) Branch hours as needed for Pain (scale 4-6) or Pain (scale 7-10). metaxalone 2022-0 Yes [id number] 800mg Take 1 Univers (SKELAXIN) 8-29 tablet by ity of 800 mg 00:00: mouth in [place] tablet 00 the Medical morning Branch and 1 tablet at noon and 1 tablet in the evening. ondansetron 2-0 Yes [id number] 4mg Take 1 Univers 4 mg 8-29 tablet by ity of disintegrat 00:00: mouth [place] ing tablet 00 every 8 Medica l (eight) Branch hours as needed for Nausea and Vomiting (N/V). acetaminoph 2-0 Yes [id number] 650mg Take 1 Univers en (TYLENOL 8-29 tablet by ity of ARTHRITIS 00:00: mouth [place] PAIN) 650 00 every 8 Medical mg CR (eight) Branch tablet hours as needed for Pain. ketorolac 2022-0 Yes [id number] 10mg Take 1 U nivers 10 mg 8-29 tablet by ity of tablet 00:00: mouth [place] 00 every 6 Medical (six) Branch hours as needed for Pain (scale 4-6) or Pain (scale 7-10). metaxalone 2022-0 Yes [id number] 800mg Take 1 Univers (SKELAXIN) 8-29 tablet by ity of 800 mg 00:00: mouth in [place] tablet 00 the Medical morning Branch and 1 tablet at noon and 1 tablet in the evening. ondansetron 2022-0 Yes [id number] 4mg Take 1 Univers 4 mg 8-29 tablet by ity of disintegrat 00:00: mouth [place] ing tablet 00 every 8 Medica l (eight) Branch hours as needed for Nausea and Vomiting (N/V). acetaminoph 2022-0 Yes [id number] 650mg Take 1 Univers en (TYLENOL 8-29 tablet by ity of ARTHRITIS 00:00: mouth [place] PAIN) 650 00 every 8 Medical mg CR (eight) Branch tablet hours as needed for Pain. ketorolac 2022-0 Yes [id number] 10mg Take 1 U nivers 10 mg 8-29 tablet by ity of tablet 00:00: mouth [place] 00 every 6 Medical (six) Branch hours as needed for Pain (scale 4-6) or Pain (scale 7-10). metaxalone 202-0 Yes [id number] 800mg Take 1 Univers (SKELAXIN) 8-29 tablet by ity of 800 mg 00:00: mouth in [place] tablet 00 the Medical morning Branch and 1 tablet at noon and 1 tablet in the evening. ondansetron 2021-0 Yes [id number] 4mg Take 1 Univers 4 mg 8-29 tablet by ity of disintegrat 00:00: mouth [place] ing tablet 00 every 8 Medica l (eight) Branch hours as needed for Nausea and Vomiting (N/V). acetaminoph 2021-0 Yes [id number] 650mg Take 1 Univers en (TYLENOL 8-29 tablet by ity of ARTHRITIS 00:00: mouth [place] PAIN) 650 00 every 8 Medical mg CR (eight) Branch tablet hours as needed for Pain. ketorolac 2021-0 Yes [id number] 10mg Take 1 U nivers 10 mg 8-29 tablet by ity of tablet 00:00: mouth [place] 00 every 6 Medical (six) Branch hours as needed for Pain (scale 4-6) or Pain (scale 7-10). metaxalone 2-0 Yes [id number] 800mg Take 1 Univers (SKELAXIN) 8-29 tablet by ity of 800 mg 00:00: mouth in [place] tablet 00 the Medical morning Branch and 1 tablet at noon and 1 tablet in the evening. ondansetron 2022-0 Yes [id number] 4mg Take 1 Univers 4 mg 8-29 tablet by ity of disintegrat 00:00: mouth [place] ing tablet 00 every 8 Medica l (eight) Branch hours as needed for Nausea and Vomiting (N/V). acetaminoph 2022-0 Yes [id number] 650mg Take 1 Univers en (TYLENOL 8-29 tablet by ity of ARTHRITIS 00:00: mouth [place] PAIN) 650 00 every 8 Medical mg CR (eight) Branch tablet hours as needed for Pain. ketorolac 2022-0 Yes [id number] 10mg Take 1 U nivers 10 mg 8-29 tablet by ity of tablet 00:00: mouth [place] 00 every 6 Medical (six) Branch hours as needed for Pain (scale 4-6) or Pain (scale 7-10). metaxalone 2022-0 Yes [id number] 800mg Take 1 Univers (SKELAXIN) 8-29 tablet by ity of 800 mg 00:00: mouth in [place] tablet 00 the Medical morning Branch and 1 tablet at noon and 1 tablet in the evening. ondansetron 2-0 Yes [id number] 4mg Take 1 Univers 4 mg 8-29 tablet by ity of disintegrat 00:00: mouth [place] ing tablet 00 every 8 Medica l (eight) Branch hours as needed for Nausea and Vomiting (N/V). acetaminoph 2021-0 Yes [id number] 650mg Take 1 Univers en (TYLENOL 8-29 tablet by ity of ARTHRITIS 00:00: mouth [place] PAIN) 650 00 every 8 Medical mg CR (eight) Branch tablet hours as needed for Pain. ketorolac 2-0 Yes [id number] 10mg Take 1 U nivers 10 mg 8-29 tablet by ity of tablet 00:00: mouth [place] 00 every 6 Medical (six) Branch hours as needed for Pain (scale 4-6) or Pain (scale 7-10). metaxalone 2-0 Yes [id number] 800mg Take 1 Univers (SKELAXIN) 8-29 tablet by ity of 800 mg 00:00: mouth in [place] tablet 00 the Medical morning Branch and 1 tablet at noon and 1 tablet in the evening. ondansetron 2022-0 Yes [id number] 4mg Take 1 Univers 4 mg 8-29 tablet by ity of disintegrat 00:00: mouth [place] ing tablet 00 every 8 Medica l (eight) Branch hours as needed for Nausea and Vomiting (N/V). acetaminoph 2022-0 Yes [id number] 650mg Take 1 Univers en (TYLENOL 8-29 tablet by ity of ARTHRITIS 00:00: mouth [place] PAIN) 650 00 every 8 Medical mg CR (eight) Branch tablet hours as needed for Pain. ketorolac 2022-0 Yes [id number] 10mg Take 1 U nivers 10 mg 8-29 tablet by ity of tablet 00:00: mouth [place] 00 every 6 Medical (six) Branch hours as needed for Pain (scale 4-6) or Pain (scale 7-10). metaxalone 2022-0 Yes [id number] 800mg Take 1 Univers (SKELAXIN) 8-29 tablet by ity of 800 mg 00:00: mouth in [place] tablet 00 the Medical morning Branch and 1 tablet at noon and 1 tablet in the evening. ondansetron 2022-0 Yes [id number] 4mg Take 1 Univers 4 mg 8-29 tablet by ity of disintegrat 00:00: mouth [place] ing tablet 00 every 8 Medica l (eight) Branch hours as needed for Nausea and Vomiting (N/V). acetaminoph 2022-0 Yes [id number] 650mg Take 1 Univers en (TYLENOL 8-29 tablet by ity of ARTHRITIS 00:00: mouth [place] PAIN) 650 00 every 8 Medical mg CR (eight) Branch tablet hours as needed for Pain. ketorolac 2022-0 Yes [id number] 10mg Take 1 U nivers 10 mg 8-29 tablet by ity of tablet 00:00: mouth [place] 00 every 6 Medical (six) Branch hours as needed for Pain (scale 4-6) or Pain (scale 7-10). metaxalone 2-0 Yes [id number] 800mg Take 1 Univers (SKELAXIN) 8-29 tablet by ity of 800 mg 00:00: mouth in [place] tablet 00 the Medical morning Branch and 1 tablet at noon and 1 tablet in the evening. ondansetron 2022-0 Yes [id number] 4mg Take 1 Univers 4 mg 8-29 tablet by ity of disintegrat 00:00: mouth [place] ing tablet 00 every 8 Medica l (eight) Branch hours as needed for Nausea and Vomiting (N/V). acetaminoph 2022-0 Yes [id number] 650mg Take 1 Univers en (TYLENOL 8-29 tablet by ity of ARTHRITIS 00:00: mouth [place] PAIN) 650 00 every 8 Medical mg CR (eight) Branch tablet hours as needed for Pain. ketorolac 2022-0 Yes [id number] 10mg Take 1 U nivers 10 mg 8-29 tablet by ity of tablet 00:00: mouth [place] 00 every 6 Medical (six) Branch hours as needed for Pain (scale 4-6) or Pain (scale 7-10). metaxalone 2021-0 Yes [id number] 800mg Take 1 Univers (SKELAXIN) 8-29 tablet by ity of 800 mg 00:00: mouth in [place] tablet 00 the Medical morning Branch and 1 tablet at noon and 1 tablet in the evening. acetaminoph 2021-0 Yes [id number] 650mg Take 1 Univers en (TYLENOL 8-29 tablet by ity of ARTHRITIS 00:00: mouth [place] PAIN) 650 00 every 8 Medical mg CR (eight) Branch tablet hours as needed for Pain. acetaminoph 2021-0 Yes [id number] 650mg Take 1 Univers en (TYLENOL 8-29 tablet by ity of ARTHRITIS 00:00: mouth [place] PAIN) 650 00 every 8 Medical mg CR (eight) Branch tablet hours as needed for Pain. acetaminoph 0 Yes [id number] 650mg Take 1 Univers en (TYLENOL 8-29 tablet by ity of ARTHRITIS 00:00: mouth [place] PAIN) 650 00 every 8 Medical mg CR (eight) Branch tablet hours as needed for Pain. acetaminoph 0 Yes [id number] 650mg Take 1 Univers en (TYLENOL 8-29 tablet by ity of ARTHRITIS 00:00: mouth [place] PAIN) 650 00 every 8 Medical mg CR (eight) Branch tablet hours as needed for Pain. acetaminoph 2021-0 Yes [id number] 650mg Take 1 Univers en (TYLENOL 8-29 tablet by ity of ARTHRITIS 00:00: mouth [place] PAIN) 650 00 every 8 Medical mg CR (eight) Branch tablet hours as needed for Pain. acetaminoph 2021-0 Yes [id number] 650mg Take 1 Univers en (TYLENOL 8-29 tablet by ity of ARTHRITIS 00:00: mouth [place] PAIN) 650 00 every 8 Medical mg CR (eight) Branch tablet hours as needed for Pain. acetaminoph 2021-0 Yes [id number] 650mg Take 1 Univers en (TYLENOL 8-29 tablet by ity of ARTHRITIS 00:00: mouth [place] PAIN) 650 00 every 8 Medical mg CR (eight) Branch tablet hours as needed for Pain. acetaminoph 0 Yes [id number] 650mg Take 1 Univers en (TYLENOL 8-29 tablet by ity of ARTHRITIS 00:00: mouth [place] PAIN) 650 00 every 8 Medical mg CR (eight) Branch tablet hours as needed for Pain. acetaminoph 0 Yes [id number] 650mg Take 1 Univers en (TYLENOL 8-29 tablet by ity of ARTHRITIS 00:00: mouth [place] PAIN) 650 00 every 8 Medical mg CR (eight) Branch tablet hours as needed for Pain. acetaminoph 0 Yes [id number] 650mg Take 1 Univers en (TYLENOL 8-29 tablet by ity of ARTHRITIS 00:00: mouth [place] PAIN) 650 00 every 8 Medical mg CR (eight) Branch tablet hours as needed for Pain. acetaminoph 0 Yes [id number] 650mg Take 1 Univers en (TYLENOL 8-29 tablet by ity of ARTHRITIS 00:00: mouth [place] PAIN) 650 00 every 8 Medical mg CR (eight) Branch tablet hours as needed for Pain. acetaminoph 0 Yes [id number] 650mg Take 1 Univers en (TYLENOL 8-29 tablet by ity of ARTHRITIS 00:00: mouth [place] PAIN) 650 00 every 8 Medical mg CR (eight) Branch tablet hours as needed for Pain. acetaminoph 0 Yes [id number] 650mg Take 1 Univers en (TYLENOL 8-29 tablet by ity of ARTHRITIS 00:00: mouth [place] PAIN) 650 00 every 8 Medical mg CR (eight) Branch tablet hours as needed for Pain. acetaminoph 0 Yes [id number] 650mg Take 1 Univers en (TYLENOL 8-29 tablet by ity of ARTHRITIS 00:00: mouth [place] PAIN) 650 00 every 8 Medical mg CR (eight) Branch tablet hours as needed for Pain. acetaminoph 0 Yes [id number] 650mg Take 1 Univers en (TYLENOL 8-29 tablet by ity of ARTHRITIS 00:00: mouth [place] PAIN) 650 00 every 8 Medical mg CR (eight) Branch tablet hours as needed for Pain. acetaminoph 0 Yes [id number] 650mg Take 1 [facility] en (TYLENOL 8-29 tablet by ity of ARTHRITIS 00:00: mouth [place] PAIN) 650 00 every 8 Medical mg CR (eight) Branch tablet hours as needed for Pain. acetaminoph 2021-0 Yes [id number] 650mg Take 1 [facility] en (TYLENOL 8-29 tablet by ity of ARTHRITIS 00:00: mouth [place] PAIN) 650 00 every 8 Medical mg CR (eight) Branch tablet hours as needed for Pain. acetaminoph 2021- No [id number] 650mg Take 1 [facility] en (TYLENOL 8-29 11-26 tablet by it y of ARTHRITIS 00:00: 00:00 mouth [place] PAIN) 650 00 :00 every 8 Medical mg CR (eight) Branch tablet hours as needed for Pain. ondansetron 2021-2021- No [id number] 4mg Take 1 [facility] 4 mg 8-29 10-18 tablet by ity of disintegrat 00:00: 00:00 [place] tablet 00 :00 every 8 Medica l (eight) Branch hours as needed for Nausea and Vomiting (N/V). ketorolac 2021-0 2021- No [id number] 10mg Take 1 [facility] 10 mg 8-29 10-18 tablet by ity of tablet 00:00: 00:00 mouth [place] 00 :00 every 6 Medical (six) Branch hours as needed for Pain (scale 4-6) or Pain (scale 7-10). metaxalone 2021-2021- No [id number] 800mg Take 1 [facility] (SKELAXIN) 8-29 10-18 tablet by ity of 800 mg 00:00: 00:00 mouth in [place] tablet 00 :00 the Medical morning Branch and 1 tablet at noon and 1 tablet in the evening. ondansetron 2021-0 2021- No [id number] 4mg Take 1 [facility] 4 mg 8-29 10-18 tablet by ity of disintegrat 00:00: 00:00 [place] tablet 00 :00 every 8 Medica l (eight) Branch hours as needed for Nausea and Vomiting (N/V). ketorolac 2021-0 2021- No [id number] 10mg Take 1 [facility] 10 mg 8-29 10-18 tablet by ity of tablet 00:00: 00:00 mouth [place] 00 :00 every 6 Medical (six) Branch hours as needed for Pain (scale 4-6) or Pain (scale 7-10). metaxalone 2022-0 2021- No [id number] 800mg Take 1 [facility] (SKELAXIN) 8-29 10-18 tablet by ity of 800 mg 00:00: 00:00 mouth in [place] tablet 00 :00 the Medical morning Branch and 1 tablet at noon and 1 tablet in the evening. ondansetron 2022-0 2022- No [id number] 4mg Take 1 [facility] 4 mg 8-29 10-18 tablet by ity of disintegrat 00:00: 00:00 mouth [place] tablet 00 :00 every 8 Medica l (eight) Branch hours as needed for Nausea and Vomiting (N/V). ketorolac 202-0 202- No [id number] 10mg Take 1 [facility] 10 mg 8-29 10-18 tablet by ity of tablet 00:00: 00:00 mouth [place] 00 :00 every 6 Medical (six) Branch hours as needed for Pain (scale 4-6) or Pain (scale 7-10). metaxalone 2021-0 2021- No [id number] 800mg Take 1 [facility] (SKELAXIN) 8-29 10-18 tablet by ity of 800 mg 00:00: 00:00 mouth in [place] tablet 00 :00 the Medical morning Branch and 1 tablet at noon and 1 tablet in the evening. ondansetron 2021-0 2021- No [id number] 4mg Take 1 [facility] 4 mg 8-29 10-18 tablet by ity of disintegrat 00:00: 00:00 mouth [place] tablet 00 :00 every 8 Medica l (eight) Branch hours as needed for Nausea and Vomiting (N/V). ketorolac 2022-0 2022- No [id number] 10mg Take 1 [facility] 10 mg 8-29 10-18 tablet by ity of tablet 00:00: 00:00 mouth [place] 00 :00 every 6 Medical (six) Branch hours as needed for Pain (scale 4-6) or Pain (scale 7-10). metaxalone 2022-0 202- No [id number] 800mg Take 1 [facility] (SKELAXIN) 8-29 10-18 [...] 12 Medical (twelve) Branch hours. metroNIDAZO 2021-0 2- No 500mg Take 1 Un sushant LE [...] ity o f capsule 13:03: every 6 [place] 04 (six) Medical hours as Branch needed for Allergies. carbamazepi 0 Yes Take by Uni vers ne 8 mouth. ity of (TEGRETOL 13:03: [place] ORAL) 04 Medical Branch citalopram Yes Take by [facility] ers hydrobromid 8 mouth. ity of e 13:03: [place] (CITALOPRAM 04 Medical ORAL) Branch ALBUTEROL 0 Yes [facility] INHALE 8-02 ity of 13:03: [place] 04 Medical Branch diphenhydrA 0 Yes 25mg Take 25 mg [facility] MINE 25 mg 12-12 by mouth ity o f capsule 13:03: every 6 [place] 04 (six) Medical hours as Branch needed for Allergies. carbamazepi 0 Yes Take by Uni vers ne 8- mouth. ity of (TEGRETOL 13:03: [place] ORAL) 04 Medical Branch citalopram 0 Yes Take by [facility] ers hydrobromid 8- mouth. ity of e 13:03: [place] (CITALOPRAM 04 Medical ORAL) Branch ALBUTEROL 0 Yes Univers INHALE 8 ity of 13:03: [place] [address] Medical Branch diphenhydrA 0 Yes 25mg Take 25 mg [facility] MINE 25 mg 802 by mouth ity o f capsule 13:03: every 6 [place] [address] (six) Medical hours as Branch needed for Allergies. carbamazepi 0 Yes Take by [facility] vers ne 8-02 mouth. ity of (TEGRETOL 13:03: [place] ORAL) 04 Medical Branch citalopram Yes Take by [facility] ers hydrobromid 8-02 mouth. ity of e 13:03: [place] (CITALOPRAM 04 Medical ORAL) Branch ALBUTEROL Yes [facility] INHALE 8 ity of 13:03: [place] [address] Medical Branch diphenhydrA Yes 25mg Take 25 mg [facility] MINE 25 mg 12-12 by mouth ity o f capsule 13:03: every 6 [place] [address] (six) Medical hours as Branch needed for Allergies. carbamazepi 0 Yes Take by [facility] vers ne 8-02 mouth. ity of (TEGRETOL 13:03: [place] ORAL) 04 Medical Branch citalopram Yes Take by [facility] ers hydrobromid 8-02 mouth. ity of e 13:03: [place] (CITALOPRAM 04 Medical ORAL) Branch ALBUTEROL 0 Yes Univers INHALE 8 ity of 13:03: [place] [address] Medical Branch diphenhydrA Yes 25mg Take 25 mg [facility] MINE 25 mg 12-12 by mouth ity o f capsule 13:03: every 6 [place] [address] (six) Medical hours as Branch needed for Allergies. carbamazepi 0 Yes Take by [facility] vers ne 8-02 mouth. ity of (TEGRETOL 13:03: [place] ORAL) 04 Medical Branch citalopram Yes Take by [facility] ers hydrobromid 8-02 mouth. ity of e 13:03: [place] (CITALOPRAM 04 Medical ORAL) Branch ALBUTEROL 0 Yes [facility] INHALE 8 ity of 13:03: [place] [address] Medical Branch diphenhydrA Yes 25mg Take 25 mg [facility] MINE 25 mg 8-02 by mouth ity o f capsule 13:03: every 6 [place] [address] (six) Medical hours as Branch needed for Allergies. carbamazepi Yes Take by Uni vers ne 8-02 mouth. ity of (TEGRETOL 13:03: [place] ORAL) 04 Medical Branch citalopram Yes Take by [facility] ers hydrobromid 8-02 mouth. ity of e 13:03: [place] (CITALOPRAM 04 Medical ORAL) Branch ALBUTEROL Yes [facility] INHALE 8- ity of 13:03: [place] [address] Medical Branch diphenhydrA Yes 25mg Take 25 mg [facility] MINE 25 mg 802 by mouth ity o f capsule 13:03: every 6 [place] [address] (six) Medical hours as Branch needed for Allergies. carbamazepi Yes Take by [facility] vers ne 8-02 mouth. ity of (TEGRETOL 13:03: [place] ORAL) Medical Branch citalopram Yes Take by [facility] ers hydrobromid 8-02 mouth. ity of e 13:03: [place] (CITALOPRAM 04 Medical ORAL) Branch ALBUTEROL Yes [facility] INHALE 12-12 ity of 13:03: [place] [address] Medical Branch diphenhydrA Yes 25mg Take 25 mg [facility] MINE 25 mg 02 by mouth ity o f capsule 13:03: every 6 [place] [address] (six) Medical hours as Branch needed for Allergies. carbamazepi Yes Take by [facility] vers ne 8-02 mouth. ity of (TEGRETOL 13:03: [place] ORAL) Medical Branch citalopram Yes Take by [facility] ers hydrobromid 8-02 mouth. ity of e 13:03: [place] (CITALOPRAM 04 Medical ORAL) Branch ALBUTEROL 0 Yes Univers INHALE 802 ity of 13:03: [place] [address] Medical Branch diphenhydrA Yes 25mg Take 25 mg [facility] MINE 25 mg 8-02 by mouth ity o f capsule 13:03: every 6 [place] [address] (six) Medical hours as Branch needed for Allergies. carbamazepi 0 Yes Take by [facility] vers ne 8-02 mouth. ity of (TEGRETOL 13:03: [place] ORAL) Medical Branch citalopram Yes Take by [facility] ers hydrobromid 8-02 mouth. ity of e 13:03: [place] (CITALOPRAM 04 Medical ORAL) Branch ALBUTEROL Yes Univers INHALE 8-02 ity of 13:03: [address] Branch diphenhydrA Yes 25mg Take 25 mg [facility] MINE 25 mg 802 by mouth ity o f capsule 13:03: every 6 [place] [address] (six) Medical hours as Branch needed for Allergies. carbamazepi Yes Take by Uni vers ne 8-02 mouth. ity of (TEGRETOL 13:03: [place] ORAL) [facility] Branch citalopram Yes Take by Univ ers hydrobromid 8-02 mouth. ity of e 13:03: [place] (CITALOPRAM 04 Medical ORAL) Branch ALBUTEROL Yes Univers INHALE 8-02 ity of 13:03: [address] diphenhydrA Yes 25mg Take 25 mg [facility] MINE 25 mg 02 by mouth ity o f capsule 13:03: every 6 [place] [address] (six) Medical hours as Branch needed for Allergies. carbamazepi Yes Take by Uni vers ne 8-02 mouth. ity of (TEGRETOL 13:03: [place] ORAL) [address] [place] [address] citalopram Yes Take by Univ ers hydrobromid 8-02 mouth. ity of e 13:03: [place] (CITALOPRAM 04 Medical ORAL) Branch ALBUTEROL Yes [facility] INHALE 8-02 ity of 13:03: [address] Branch ALBUTEROL Yes [facility] INHALE 8-02 ity of 13:03: [address] Branch ALBUTEROL Yes Univers INHALE 8-02 ity of 13:03: [address] Branch ALBUTEROL Yes Univers INHALE 8-02 ity of 13:03: [address] ALBUTEROL Yes Univers INHALE 8-02 ity of 13:03: [address] ALBUTEROL Yes Univers INHALE 8-02 ity of 13:03: [address] ALBUTEROL Yes [facility] INHALE 8-02 ity of 13:03: [address] ALBUTEROL Yes [facility] INHALE 8-02 ity of 13:03: [address] ALBUTEROL Yes [facility] INHALE 8-02 ity of 13:03: [place] [facility] ALBUTEROL Yes Univers INHALE 8-02 ity of 13:03: [place] [facility] ALBUTEROL Yes Univers INHALE 8-02 ity of 13:03: [place] [facility] ALBUTEROL Yes Univers INHALE 8-02 ity of 13:03: [place] [facility] ALBUTEROL Yes Univers INHALE 8-02 ity of 13:03: [address] ALBUTEROL Yes Univers INHALE 8-02 ity of 13:03: [address] ALBUTEROL Yes Univers INHALE 8-02 ity of 13:03: [place] [facility] traZODone Yes [id number] 50mg Take 1 U nivers 50 mg 8-02 tablet by ity of tablet 00:00: mouth at [place] 00 bedtime. Medical Branch SERTraline Yes [id number] 50mg Take 1 Univers (ZOLOFT) 50 8-02 tablet by ity of mg tablet 00:00: [place] 00 the Medical morning. Branch traZODone Yes [id number] 50mg Take 1 U nivers 50 mg 8-02 tablet by ity of tablet 00:00: mouth at [place] 00 bedtime. Medical Branch SERTraline Yes [id number] 50mg Take 1 [facility] (ZOLOFT) 50 8-02 tablet by ity of mg tablet 00:00: [place] 00 the Medical morning. Branch traZODone Yes [id number] 50mg Take 1 U nivers 50 mg 8-02 tablet by ity of tablet 00:00: mouth at [place] 00 bedtime. Medical Branch SERTraline Yes [id number] 50mg Take 1 [facility] (ZOLOFT) 50 8-02 tablet by ity of mg tablet 00:00: mouth [place] 00 the Medical morning. Branch traZODone Yes [id number] 50mg Take 1 U nivers 50 mg 8-02 tablet by ity of tablet 00:00: mouth at [place] 00 bedtime. Medical Branch SERTraline 0 Yes 50mg Take 1 [facility] (ZOLOFT) 50 8-02 tablet by ity of mg tablet 00:00: mouth [place] 00 the Medical morning. Branch traZODone 0 Yes [id number] 50mg Take 1 U nivers 50 mg 8-02 tablet by ity of tablet 00:00: mouth at [place] 00 bedtime. Medical Branch SERTraline 0 Yes 50mg Take 1 [facility] (ZOLOFT) 50 8-02 tablet by ity of mg tablet 00:00: mouth [place] 00 the Medical morning. Branch traZODone 0 Yes [id number] 50mg Take 1 U nivers 50 mg 8-02 tablet by ity of tablet 00:00: mouth at [place] 00 bedtime. Medical Branch SERTraline 0 Yes 50mg Take 1 [facility] (ZOLOFT) 50 8-02 tablet by ity of mg tablet 00:00: mouth [place] 00 the Medical morning. Branch traZODone 0 Yes [id number] 50mg Take 1 U nivers 50 mg 8-02 tablet by ity of tablet 00:00: mouth at [place] 00 bedtime. Medical Branch SERTraline 0 Yes 50mg Take 1 [facility] (ZOLOFT) 50 8-02 tablet by ity of mg tablet 00:00: [place] 00 the Medical morning. Branch traZODone 2021-0 Yes [id number] 50mg Take 1 U nivers 50 mg 8-02 tablet by ity of tablet 00:00: mouth at [place] 00 bedtime. Medical Branch SERTraline 0 Yes 50mg Take 1 [facility] (ZOLOFT) 50 8-02 tablet by ity of mg tablet 00:00: [place] 00 the Medical morning. Branch traZODone 2021-0 Yes [id number] 50mg Take 1 U nivers 50 mg 8-02 tablet by ity of tablet 00:00: mouth at [place] 00 bedtime. Medical Branch SERTraline 2021-0 Yes [id number] 50mg Take 1 [facility] (ZOLOFT) 50 8-02 tablet by ity of mg tablet 00:00: [place] 00 the Medical morning. Branch traZODone Yes [id number] 50mg Take 1 U nivers 50 mg 8-02 tablet by ity of tablet 00:00: mouth at [place] 00 bedtime. Medical Branch SERTraline Yes [id number] 50mg Take 1 [facility] (ZOLOFT) 50 8-02 tablet by ity of mg tablet 00:00: mouth [place] 00 the Medical morning. Branch traZODone Yes [id number] 50mg Take 1 U nivers 50 mg 8-02 tablet by ity of tablet 00:00: mouth at [place] 00 bedtime. Medical Branch SERTraline Yes [id number] 50mg Take 1 [facility] (ZOLOFT) 50 8-02 tablet by ity of mg tablet 00:00: [place] 00 the Medical morning. Branch traZODone 2021- No [id number] 50mg Take 1 [facility] 50 mg 8-02 10-18 tablet by ity of tablet 00:00: 00:00 mouth at [place] 00 :00 bedtime. Medical Branch SERTraline 2021- No [id number] 50mg Take 1 [facility] (ZOLOFT) 50 8-02 10-18 tablet by it y of mg tablet 00:00: 00:00 mouth in [place] 00 :00 the Medical morning. Branch traZODone 2021- No [id number] 50mg Take 1 [facility] 50 mg 8-02 10-18 tablet by ity of tablet 00:00: 00:00 mouth at [place] 00 :00 bedtime. Medical Branch SERTraline 2021- No [id number] 50mg Take 1 [facility] (ZOLOFT) 50 8-02 10-18 tablet by it y of mg tablet 00:00: 00:00 mouth in [place] 00 :00 the Medical morning. Branch traZODone 2021- No [id number] 50mg Take 1 [facility] 50 mg 8-02 10-18 tablet by ity of tablet 00:00: 00:00 mouth at [place] 00 :00 bedtime. [facility] Branch SERTraline 2021- No [id number] 50mg Take 1 [facility] (ZOLOFT) 50 12-12 10-18 tablet by it y of mg tablet 00:00: 00:00 mouth in [place] 00 :00 the Medical morning. Branch traZODone 2021- No [id number] 50mg Take 1 [facility] 50 mg 8- 10-18 tablet by ity of tablet 00:00: 00:00 mouth at [place] 00 :00 bedtime. Medical Branch SERTraline 2021- No [id number] 50mg Take 1 [facility] (ZOLOFT) 50 12-1218 tablet by it y of mg tablet 00:00: 00:00 mouth in [place] 00 :00 the Medical morning. Branch sulfamethox 2021- No [id number] 1{tbl} Take 1 [facility] azole-trime 12-12 tablet by it y of thoprim 00:00: 04:59 mouth in [place] (BACTRIM 00 :00 the Medical DS) 800-160 morning Branc h mg per and 1 tablet tablet in the evening. Do all this for 3 days. ibuprofen 0 Yes [id number] 600mg Take 1 [facility] 600 mg 7-15 tablet by ity of tablet 00:00: mouth [place] 00 every 6 Medical (six) Branch hours as needed for Pain (scale 4-6). ibuprofen 2021-0 Yes [id number] 600mg Take 1 [facility] 600 mg 7-15 tablet by ity of tablet 00:00: mouth [place] 00 every 6 Medical (six) Branch hours as needed for Pain (scale 4-6). ibuprofen 2021-0 Yes [id number] 600mg Take 1 [facility] 600 mg 7-15 tablet by ity of tablet 00:00: mouth [place] 00 every 6 Medical (six) Branch hours as needed for Pain (scale 4-6). ibuprofen 2021-0 Yes [id number] 600mg Take 1 [facility] 600 mg 7-15 tablet by ity of tablet 00:00: mouth [place] 00 every 6 Medical (six) Branch hours as needed for Pain (scale 4-6). ibuprofen 2021-0 Yes [id number] 600mg Take 1 [facility] 600 mg 7-15 tablet by ity of tablet 00:00: mouth [place] 00 every 6 Medical (six) Branch hours as needed for Pain (scale 4-6). ibuprofen 2022-0 Yes [id number] 600mg Take 1 [facility] 600 mg 7-15 tablet by ity of tablet 00:00: mouth [place] 00 every 6 Medical (six) Branch hours as needed for Pain (scale 4-6). ibuprofen 2022-0 Yes [id number] 600mg Take 1 [facility] 600 mg 7-15 tablet by ity of tablet 00:00: mouth [place] 00 every 6 Medical (six) Branch hours as needed for Pain (scale 4-6). ibuprofen 2022-0 Yes [id number] 600mg Take 1 [facility] 600 mg 7-15 tablet by ity of tablet 00:00: mouth [place] 00 every 6 Medical (six) Branch hours as needed for Pain (scale 4-6). ibuprofen 2022-0 Yes [id number] 600mg Take 1 [facility] 600 mg 7-15 tablet by ity of tablet 00:00: mouth [place] 00 every 6 Medical (six) Branch hours as needed for Pain (scale 4-6). ibuprofen 2022-0 Yes [id number] 600mg Take 1 [facility] 600 mg 7-15 tablet by ity of tablet 00:00: mouth [place] 00 every 6 Medical (six) Branch hours as needed for Pain (scale 4-6). ibuprofen 2022-0 Yes [id number] 600mg Take 1 [facility] 600 mg 7-15 tablet by ity of tablet 00:00: mouth [place] 00 every 6 Medical (six) Branch hours as needed for Pain (scale 4-6). ibuprofen 2022-0 2022- No [id number] 600mg Take 1 [facility] 600 mg 7-15 10-18 tablet by ity of tablet 00:00: 00:00 mouth [place] 00 :00 every 6 Medical (six) Branch hours as needed for Pain (scale 4-6). ibuprofen 2022-0 2022- No [id number] 600mg Take 1 [facility] 600 mg 7-15 10-18 tablet by ity of tablet 00:00: 00:00 mouth [place] 00 :00 every 6 Medical (six) Branch hours as needed for Pain (scale 4-6). ibuprofen 2022-0 2022- No [id number] 600mg Take 1 [facility] 600 mg 7-15 10-18 tablet by ity of tablet 00:00: 00:00 mouth [place] 00 :00 every 6 Medical (six) Branch hours as needed for Pain (scale 4-6). ibuprofen 2021-2021- No [id number] 600mg Take 1 [facility] 600 mg 7-15 [...] Indication s: acute pain bromphenira 2021-0 Yes [id number] 5mL Take 5 mL [facility] mine-pseudo 7-09 by mouth 4 it y of ephedrine-D 00:00: (four) [place] (BROMFED 00 times Medical DM) 2-30-10 daily as Bran ch mg/5 mL needed for syrup Congestion /Allergies or Cough. naproxen 2021-0 Yes [id number] 500mg Take 1 U nivers 500 mg 7-09 tablet by ity of tablet 00:00: mouth [place] 00 every 8 Medical (eight) Branch hours as needed for Pain (scale 4-6). cyclobenzap 2021-0 Yes [id number] 10mg Take 1 Univers rine 10 mg 7-09 tablet by ity of tablet 00:00: mouth at [place] 00 bedtime as Medical needed for Branch Muscle Spasms. bromphenira 2021-0 Yes [id number] 5mL Take 5 mL [facility] mine-pseudo 7-09 by mouth 4 it y of ephedrine-D 00:00: (four) [place] (BROMFED 00 times Medical DM) 2-30-10 daily as Bran ch mg/5 mL needed for syrup Congestion /Allergies or Cough. naproxen 2021-0 Yes [id number] 500mg Take 1 U nivers 500 mg 7-09 tablet by ity of tablet 00:00: mouth [place] 00 every 8 Medical (eight) Branch hours as needed for Pain (scale 4-6). cyclobenzap 2021-0 Yes [id number] 10mg Take 1 Univers rine 10 mg 7-09 tablet by ity of tablet 00:00: mouth at [place] 00 bedtime as Medical needed for Branch Muscle Spasms. bromphenira 2021-0 Yes [id number] 5mL Take 5 mL [facility] mine-pseudo 7-09 by mouth 4 it y of ephedrine-D 00:00: (four) [place] (BROMFED 00 times Medical DM) 2-30-10 daily as Bran ch mg/5 mL needed for syrup Congestion /Allergies or Cough. naproxen 2021-0 Yes [id number] 500mg Take 1 U nivers 500 mg 7-09 tablet by ity of tablet 00:00: mouth [place] 00 every 8 Medical (eight) Branch hours as needed for Pain (scale 4-6). cyclobenzap 2021-0 Yes [id number] 10mg Take 1 Univers rine 10 mg 7-09 tablet by ity of tablet 00:00: mouth at [place] 00 bedtime as Medical needed for Branch Muscle Spasms. bromphenira 2021-0 Yes [id number] 5mL Take 5 mL [facility] mine-pseudo 7-09 by mouth 4 it y of ephedrine-D 00:00: (four) [place] (BROMFED 00 times Medical DM) 2-30-10 daily as Bran ch mg/5 mL needed for syrup Congestion /Allergies or Cough. naproxen 2021-0 Yes [id number] 500mg Take 1 U nivers 500 mg 7-09 tablet by ity of tablet 00:00: mouth [place] 00 every 8 Medical (eight) Branch hours as needed for Pain (scale 4-6). cyclobenzap 2021-0 Yes [id number] 10mg Take 1 Univers rine 10 mg 7-09 tablet by ity of tablet 00:00: mouth at [place] 00 bedtime as Medical needed for Branch Muscle Spasms. bromphenira 2021-0 Yes [id number] 5mL Take 5 mL [facility] mine-pseudo 7-09 by mouth 4 it y of ephedrine-D 00:00: (four) [place] (BROMFED 00 times Medical DM) 2-30-10 daily as Bran ch mg/5 mL needed for syrup Congestion /Allergies or Cough. naproxen 2-0 Yes [id number] 500mg Take 1 U nivers 500 mg 7-09 tablet by ity of tablet 00:00: mouth [place] 00 every 8 Medical (eight) Branch hours as needed for Pain (scale 4-6). cyclobenzap 2022-0 Yes [id number] 10mg Take 1 Univers rine 10 mg 7-09 tablet by ity of tablet 00:00: mouth at [place] 00 bedtime as Medical needed for Branch Muscle Spasms. bromphenira 2021-0 Yes [id number] 5mL Take 5 mL [facility] mine-pseudo 7-09 by mouth 4 it y of ephedrine-D 00:00: (four) [place] (BROMFED 00 times Medical DM) 2-30-10 daily as Bran ch mg/5 mL needed for syrup Congestion /Allergies or Cough. naproxen 202-0 Yes [id number] 500mg Take 1 U nivers 500 mg 7-09 tablet by ity of tablet 00:00: mouth [place] 00 every 8 Medical (eight) Branch hours as needed for Pain (scale 4-6). cyclobenzap 2021-0 Yes [id number] 10mg Take 1 Univers rine 10 mg 7-09 tablet by ity of tablet 00:00: mouth at [place] 00 bedtime as Medical needed for Branch Muscle Spasms. bromphenira 2021-0 Yes [id number] 5mL Take 5 mL [facility] mine-pseudo 7-09 by mouth 4 it y of ephedrine-D 00:00: (four) [place] (BROMFED 00 times Medical DM) 2-30-10 daily as Bran ch mg/5 mL needed for syrup Congestion /Allergies or Cough. naproxen 2-0 Yes [id number] 500mg Take 1 U nivers 500 mg 7-09 tablet by ity of tablet 00:00: mouth [place] 00 every 8 Medical (eight) Branch hours as needed for Pain (scale 4-6). cyclobenzap 2022-0 Yes [id number] 10mg Take 1 Univers rine 10 mg 7-09 tablet by ity of tablet 00:00: mouth at [place] 00 bedtime as Medical needed for Branch Muscle Spasms. bromphenira 2022-0 Yes [id number] 5mL Take 5 mL [facility] mine-pseudo 7-09 by mouth 4 it y of ephedrine-D 00:00: (four) [place] (BROMFED 00 times Medical DM) 2-30-10 daily as Bran ch mg/5 mL needed for syrup Congestion /Allergies or Cough. naproxen 2-0 Yes [id number] 500mg Take 1 U nivers 500 mg 7-09 tablet by ity of tablet 00:00: mouth [place] 00 every 8 Medical (eight) Branch hours as needed for Pain (scale 4-6). cyclobenzap 2022-0 Yes [id number] 10mg Take 1 Univers rine 10 mg 7-09 tablet by ity of tablet 00:00: mouth at [place] 00 bedtime as Medical needed for Branch Muscle Spasms. bromphenira 2022-0 Yes [id number] 5mL Take 5 mL [facility] mine-pseudo 7-09 by mouth 4 it y of ephedrine-D 00:00: (four) [place] (BROMFED 00 times Medical DM) 2-30-10 daily as Bran ch mg/5 mL needed for syrup Congestion /Allergies or Cough. naproxen 2021-0 Yes [id number] 500mg Take 1 U nivers 500 mg 7-09 tablet by ity of tablet 00:00: mouth [place] 00 every 8 Medical (eight) Branch hours as needed for Pain (scale 4-6). cyclobenzap 2022-0 Yes [id number] 10mg Take 1 Univers rine 10 mg 7-09 tablet by ity of tablet 00:00: mouth at [place] 00 bedtime as Medical needed for Branch Muscle Spasms. bromphenira 2-0 Yes [id number] 5mL Take 5 mL [facility] mine-pseudo 7-09 by mouth 4 it y of ephedrine-D 00:00: (four) [place] (BROMFED 00 times Medical DM) 2-30-10 daily as Bran ch mg/5 mL needed for syrup Congestion /Allergies or Cough. naproxen 2022-0 Yes [id number] 500mg Take 1 U nivers 500 mg 7-09 tablet by ity of tablet 00:00: mouth [place] 00 every 8 Medical (eight) Branch hours as needed for Pain (scale 4-6). cyclobenzap 2022-0 Yes [id number] 10mg Take 1 Univers rine 10 mg 7-09 tablet by ity of tablet 00:00: mouth at [place] 00 bedtime as Medical needed for Branch Muscle Spasms. bromphenira 2022-0 Yes [id number] 5mL Take 5 mL [facility] mine-pseudo 7-09 by mouth 4 it y of ephedrine-D 00:00: (four) [place] (BROMFED 00 times Medical DM) 2-30-10 daily as Bran ch mg/5 mL needed for syrup Congestion /Allergies or Cough. naproxen 2021-0 Yes [id number] 500mg Take 1 U nivers 500 mg 7-09 tablet by ity of tablet 00:00: mouth [place] 00 every 8 Medical (eight) Branch hours as needed for Pain (scale 4-6). cyclobenzap 2021-0 Yes [id number] 10mg Take 1 Univers rine 10 mg 7-09 tablet by ity of tablet 00:00: mouth at [place] 00 bedtime as Medical needed for Branch Muscle Spasms. bromphenira 2021-0 Yes [id number] 5mL Take 5 mL [facility] mine-pseudo 7-09 by mouth 4 it y of ephedrine-D 00:00: (four) [place] (BROMFED 00 times Medical DM) 2-30-10 daily as Bran ch mg/5 mL needed for syrup Congestion /Allergies or Cough. bromphenira 2021-0 Yes [id number] 5mL Take 5 mL [facility] mine-pseudo 7-09 by mouth 4 it y of ephedrine-D 00:00: (four) [place] (BROMFED 00 times Medical DM) 2-30-10 daily as Bran ch mg/5 mL needed for syrup Congestion /Allergies or Cough. bromphenira 2021-0 Yes [id number] 5mL Take 5 mL [facility] mine-pseudo 7-09 by mouth 4 it y of ephedrine-D 00:00: (four) [place] (BROMFED 00 times Medical DM) 2-30-10 daily as Bran ch mg/5 mL needed for syrup Congestion /Allergies or Cough. bromphenira 2021-0 Yes [id number] 5mL Take 5 mL [facility] mine-pseudo 7-09 by mouth 4 it y of ephedrine-D 00:00: (four[place] ([place] 00 times Medical DM) 2-30-10 daily as [facility] ch mg/5 mL needed for syrup Congestion /Allergies or Cough. bromphenira 2021-0 Yes [id number] 5mL Take 5 mL [facility] mine-pseudo 7-09 by mouth 4 it y of ephedrine-D 00:00: (four[place] ([facility]OMF[place] 00 times Medical DM) 2-30-10 daily as Bran ch mg/5 mL needed for syrup Congestion /Allergies or Cough. bromphenira 2-0 Yes [id number] 5mL Take 5 mL [facility] mine-pseudo 7-09 by mouth 4 it y of ephedrine-D 00:00: (four[place] ([place]OMF[place] 00 times Medical DM) 2-30-10 daily as Bran ch mg/5 mL needed for syrup Congestion /Allergies or Cough. bromphenira 2-0 Yes [id number] 5mL Take 5 mL [facility] mine-pseudo 7-09 by mouth 4 it y of ephedrine-D 00:00: (four[place] ([facility]OMF[place] 00 times Medical DM) 2-30-10 daily as Bran ch mg/5 mL needed for syrup Congestion /Allergies or Cough. bromphenira 2021-0 Yes [id number] 5mL Take 5 mL [facility] mine-pseudo 7-09 by mouth 4 it y of ephedrine-D 00:00: (four[place] ([facility]OMFED 00 times Medical DM) 2-30-10 daily as Bran ch mg/5 mL needed for syrup Congestion /Allergies or Cough. bromphenira 2021-0 Yes [id number] 5mL Take 5 mL [facility] mine-pseudo 7-09 by mouth 4 it y of ephedrine-D 00:00: (four[place] ([facility]OMFED 00 times Medical DM) 2-30-10 daily as Bran ch mg/5 mL needed for syrup Congestion /Allergies or Cough. bromphenira 2021-0 Yes [id number] 5mL Take 5 mL [facility] mine-pseudo 7-09 by mouth 4 it y of ephedrine-D 00:00: (four[place] ([facility]OMFED 00 times Medical DM) 2-30-10 daily as Bran ch mg/5 mL needed for syrup Congestion /Allergies or Cough. bromphenira 2-0 Yes [id number] 5mL Take 5 mL [facility] mine-pseudo 7-09 by mouth 4 it y of ephedrine-D 00:00: (four[place] (BROMFED 00 times Medical DM) 2-30-10 daily as Bran ch mg/5 mL needed for syrup Congestion /Allergies or Cough. bromphenira 2022-0 Yes [id number] 5mL Take 5 mL [facility] mine-pseudo 7-09 by mouth 4 it y of ephedrine-D 00:00: (four) [place] (BROMFED 00 times Medical DM) 2-30-10 daily as Bran ch mg/5 mL needed for syrup Congestion /Allergies or Cough. bromphenira 2021-0 Yes [id number] 5mL Take 5 mL [facility] mine-pseudo 7-09 by mouth 4 it y of ephedrine-D 00:00: (four) [place] (BROMFED 00 times Medical DM) 2-30-10 daily as Bran ch mg/5 mL needed for syrup Congestion /Allergies or Cough. bromphenira 2021-0 Yes [id number] 5mL Take 5 mL [facility] mine-pseudo 7-09 by mouth 4 it y of ephedrine-D 00:00: (four[place] (BROMFED 00 times Medical DM) 2-30-10 daily as Bran ch mg/5 mL needed for syrup Congestion /Allergies or Cough. bromphenira 0 2021- No [id number] 5mL Take 5 mL [facility] mine-pseudo 7-09 11-12 by mouth 4 i ty of ephedrine-D 00:00: 00:00 (four) [place] (BROMFED 00 :00 times Medical DM) 2-30-10 daily as Bran ch mg/5 mL needed for syrup Congestion /Allergies or Cough. naproxen 2021-2021- No [id number] 500mg Take 1 [facility] 500 mg 7-09 10-18 tablet by ity of tablet 00:00: 00:00 mouth [place] 00 :00 every 8 Medical (eight) Branch hours as needed for Pain (scale 4-6). cyclobenzap 2021-2021- No [id number] 10mg Take 1 [facility] rine 10 mg 7-09 10-18 tablet by ity of tablet 00:00: 00:00 mouth at [place] 00 :00 bedtime as Medical needed for Branch Muscle Spasms. naproxen 2021-0 2021- No [id number] 500mg Take 1 [facility] 500 mg 7-09 10-18 tablet by ity of tablet 00:00: 00:00 mouth [place] 00 :00 every 8 Medical (eight) Branch hours as needed for Pain (scale 4-6). cyclobenzap 2021- No [id number] 10mg Take 1 [facility] rine 10 mg 7- 10-18 tablet by ity of tablet 00:00: 00:00 mouth at [place] 00 :00 bedtime as Medical needed for Branch Muscle Spasms. naproxen 2021- No [id number] 500mg Take 1 [facility] 500 mg 7- 10-18 tablet by ity of tablet 00:00: 00:00 mouth [place] 00 :00 every 8 Medical (eight) Branch hours as needed for Pain (scale 4-6). cyclobenzap 2021- No [id number] 10mg Take 1 [facility] rine 10 mg 7- 10-18 tablet by ity of tablet 00:00: 00:00 mouth at [place] 00 :00 bedtime as Medical needed for Branch Muscle Spasms. naproxen 2021- No [id number] 500mg Take 1 [facility] 500 mg 7- 10-18 tablet by ity of tablet 00:00: 00:00 mouth [place] 00 :00 every 8 Medical (eight) Branch hours as needed for Pain (scale 4-6). cyclobenzap 2021- No [id number] 10mg Take 1 [facility] rine 10 mg 7- 10-18 tablet by ity of tablet 00:00: 00:00 mouth at [place] 00 :00 bedtime as Medical needed for Branch Muscle Spasms. ibuprofen Yes [id number] 605mg Take 30.25 [facility] 100 mg/5 mL 6-15 mL by ity of oral 00:00: mouth [place] suspension 00 every 6 Medica l (six) Branch hours as needed for Pain (scale 4-6) or Temp > 38.5 C. ibuprofen Yes [id number] 605mg Take 30.25 [facility] 100 mg/5 mL 6-15 mL by ity of oral 00:00: mouth [place] suspension 00 every 6 Medica l (six) Branch hours as needed for Pain (scale 4-6) or Temp > 38.5 C. ibuprofen Yes [id number] 605mg Take 30.25 [facility] 100 mg/5 mL 6-15 mL by ity of oral 00:00: mouth [place] suspension 00 every 6 Medica l (six) Branch hours as needed for Pain (scale 4-6) or Temp > 38.5 C. ibuprofen 2-0 Yes [id number] 605mg Take 30.25 [facility] 100 mg/5 mL 6-15 mL by ity of oral 00:00: mouth [place] suspension 00 every 6 Medica l (six) Branch hours as needed for Pain (scale 4-6) or Temp > 38.5 C. ibuprofen 2021-0 Yes [id number] 605mg Take 30.25 [facility] 100 mg/5 mL 6-15 mL by ity of oral 00:00: mouth [place] suspension 00 every 6 Medica l (six) Branch hours as needed for Pain (scale 4-6) or Temp > 38.5 C. ibuprofen 2021-0 Yes [id number] 605mg Take 30.25 [facility] 100 mg/5 mL 6-15 mL by ity of oral 00:00: mouth [place] suspension 00 every 6 Medica l (six) Branch hours as needed for Pain (scale 4-6) or Temp > 38.5 C. ibuprofen 2021-0 Yes [id number] 605mg Take 30.25 [facility] 100 mg/5 mL 6-15 mL by ity of oral 00:00: mouth [place] suspension 00 every 6 Medica l (six) Branch hours as needed for Pain (scale 4-6) or Temp > 38.5 C. ibuprofen 2021-0 Yes [id number] 605mg Take 30.25 [facility] 100 mg/5 mL 6-15 mL by ity of oral 00:00: mouth [place] suspension 00 every 6 Medica l (six) Branch hours as needed for Pain (scale 4-6) or Temp > 38.5 C. ibuprofen 2021-0 Yes [id number] 605mg Take 30.25 [facility] 100 mg/5 mL 6-15 mL by ity of oral 00:00: mouth [place] suspension 00 every 6 Medica l (six) Branch hours as needed for Pain (scale 4-6) or Temp > 38.5 C. ibuprofen 2022-0 Yes [id number] 605mg Take 30.25 [facility] 100 mg/5 mL 6-15 mL by ity of oral 00:00: mouth [place] suspension 00 every 6 Medica l (six) Branch hours as needed for Pain (scale 4-6) or Temp > 38.5 C. ibuprofen 2022-0 Yes [id number] 605mg Take 30.25 [facility] 100 mg/5 mL 6-15 mL by ity of oral 00:00: mouth [place] suspension 00 every 6 Medica l (six) Branch hours as needed for Pain (scale 4-6) or Temp > 38.5 C. ibuprofen 2021- No [id number] 605mg Take 30.25 [facility] 100 mg/5 mL 6-15 10-18 mL by ity of oral 00:00: 00:00 mouth [place] suspension 00 :00 every 6 Medica l (six) Branch hours as needed for Pain (scale 4-6) or Temp > 38.5 C. ibuprofen 2021- No [id number] 605mg Take 30.25 [facility] 100 mg/5 mL 6-15 10-18 mL by ity of oral 00:00: 00:00 mouth [place] suspension 00 :00 every 6 Medica l (six) Branch hours as needed for Pain (scale 4-6) or Temp > 38.5 C. ibuprofen 2021- No [id number] 605mg Take 30.25 [facility] 100 mg/5 mL 6-15 10-18 mL by ity of oral 00:00: 00:00 mouth [place] suspension 00 :00 every 6 Medica l (six) Branch hours as needed for Pain (scale 4-6) or Temp > 38.5 C. ibuprofen 2021- No [id number] 605mg Take 30.25 [facility] 100 mg/5 mL 6-15 10-18 mL by ity of oral 00:00: 00:00 mouth [place] suspension 00 :00 every 6 Medica l (six) Branch hours as needed for Pain (scale 4-6) or Temp > 38.5 C. acetaminoph 2021- No [id number] 608mg Take 19 mL [facility] en 160 [...] 60 mg 5-27 ity of capsule 00:00: [place] 00 Medical Branch DULoxetine 2022-0 Yes [facility] 60 mg 5-27 ity of capsule 00:00: [place] 00 Medical Branch DULoxetine 2022-0 Yes [facility] 60 mg 5-27 ity of capsule 00:00: [place] 00 Medical Branch DULoxetine 2022-0 Yes [facility] 60 mg 5-27 ity of capsule 00:00: [place] 00 Medical Branch DULoxetine 2022-0 Yes [facility] 60 mg 5-27 ity of capsule 00:00: [place] 00 Medical Branch DULoxetine 2022-0 Yes [facility] 60 mg 5-27 ity of capsule 00:00: [place] 00 Medical Branch DULoxetine 2022-0 Yes [facility] 60 mg 5-27 ity of capsule 00:00: [place] 00 Medical Branch DULoxetine 2022-0 Yes [facility] 60 mg 5-27 ity of capsule 00:00: [place] 00 Medical Branch DULoxetine 2-0 Yes [facility] 60 mg 5-27 ity of capsule 00:00: [place] 00 Medical Branch DULoxetine 2-0 2022- No Univer s 60 mg 5-27 10-18 ity of capsule 00:00: 00:00 [place] 00 :00 Medical Branch DULoxetine 2-0 2022- No Univer s 60 mg 5-27 10-18 ity of capsule 00:00: 00:00 [place] 00 :00 Medical Branch DULoxetine 2022-0 2022- No Univer s 60 mg 5-27 10-18 ity of capsule 00:00: 00:00 [place] 00 :00 Medical Branch DULoxetine 2022-0 2022- No Univer s 60 mg 5-27 10-18 ity of capsule 00:00: 00:00 [place] 00 :00 Medical Branch traZODone 2022-0 2022- No Univers 50 mg 5-27 08-02 ity of tablet 00:00: 00:00 [place] 00 :00 Medical Branch mometasone 2-0 Yes [id number] 1{spray Use 1 Univers 50 5-19 } [place] in ity of mcg/actuati 00:00: each [place] on nasal 00 nostril 2 Medica l spray (two) Branch times daily. mometasone 2021-0 Yes [id number] 1{spray Use 1 Univers 50 5-19 } [place] in ity of mcg/actuati 00:00: each [place] on nasal 00 nostril 2 Medica l spray (two) Branch times daily. mometasone 2021-0 Yes [id number] 1{spray Use 1 [facility] 50 5-19 } [place] in ity of mcg/actuati 00:00: each [place] on nasal 00 nostril 2 Medica l spray (two) Branch times daily. mometasone 2021-0 Yes [id number] 1{spray Use 1 Univers 50 5-19 } [place] in ity of mcg/actuati 00:00: each [place] on nasal 00 nostril 2 Medica l spray (two) Branch times daily. mometasone 2021-0 Yes [id number] 1{spray Use 1 [facility] 50 5-19 } [place] in ity of mcg/actuati 00:00: each [place] on nasal 00 nostril 2 Medica l spray (two) Branch times daily. mometasone 2021-0 Yes [id number] 1{spray Use 1 [facility] 50 5-19 } [place] in ity of mcg/actuati 00:00: each [place] on nasal 00 nostril 2 Medica l spray (two) Branch times daily. mometasone 2021-0 Yes [id number] 1{spray Use 1 [facility] 50 5-19 } [place] in ity of mcg/actuati 00:00: each [place] on nasal 00 nostril 2 Medica l spray (two) Branch times daily. mometasone 2021-0 Yes [id number] 1{spray Use 1 [facility] 50 5-19 } [place] in ity of mcg/actuati 00:00: each [place] on nasal 00 nostril 2 Medica l spray (two) Branch times daily. mometasone 2021-0 Yes [id number] 1{spray Use 1 [facility] 50 5-19 } [place] in ity of mcg/actuati 00:00: each [place] on nasal 00 nostril 2 Medica l spray (two) Branch times daily. mometasone 2021-0 Yes [id number] 1{spray Use 1 [facility] 50 5-19 } [place] in ity of mcg/actuati 00:00: each [place] on nasal 00 nostril 2 Medica l spray (two) Branch times daily. mometasone 2021-0 Yes [id number] 1{spray Use 1 [facility] 50 5-19 } [place] in ity of mcg/actuati 00:00: each [place] on nasal 00 nostril 2 Medica l spray (two) Branch times daily. mometasone 2021- No [id number] 1{spray Use 1 [facility] 50 5-19 10-18 } [place] in ity of mcg/actuati 00:00: 00:00 each [place] on nasal 00 :00 nostril 2 Medica l spray (two) Branch times daily. mometasone 2021- No [id number] 1{spray Use 1 [facility] 50 5-19 10-18 } [place] in ity of mcg/actuati 00:00: 00:00 each [place] on nasal 00 :00 nostril 2 Medica l spray (two) Branch times daily. mometasone 2021- No [id number] 1{spray Use 1 [facility] 50 5-19 10-18 } [place] in ity of mcg/actuati 00:00: 00:00 each [place] on nasal 00 :00 nostril 2 Medica l spray (two) Branch times daily. mometasone 2021- No [id number] 1{spray Use 1 [facility] 50 5-19 10-18 } [place] in ity of mcg/actuati 00:00: 00:00 each [place] on nasal 00 :00 nostril 2 Medica l spray (two) Branch times daily. cetirizine Yes [id number] 10mg Take 1 U nivers (ZYRTEC) 10 5-16 tablet by ity of mg tablet 00:00: mouth [place] 00 daily. Medical Branch cetirizine Yes [id number] 10mg Take 1 U nivers (ZYRTEC) 10 5-16 tablet by ity of mg tablet 00:00: mouth [place] 00 daily. Medical Branch cetirizine Yes [id number] 10mg Take 1 U nivers (ZYRTEC) 10 5-16 tablet by ity of mg tablet 00:00: mouth [place] 00 daily. Medical Branch cetirizine Yes [id number] 10mg Take 1 U nivers (ZYRTEC) 10 5-16 tablet by ity of mg tablet 00:00: mouth [place] 00 daily. Medical Branch cetirizine Yes [id number] 10mg Take 1 U nivers (ZYRTEC) 10 5-16 tablet by ity of mg tablet 00:00: mouth [place] 00 daily. [facility] Branch cetirizine Yes [id number] 10mg Take 1 U nivers (ZYRTEC) 10 5-16 tablet by ity of mg tablet 00:00: mouth [place] 00 daily. [facility] Branch cetirizine Yes [id number] 10mg Take 1 U nivers (ZYRTEC) 10 5-16 tablet by ity of mg tablet 00:00: mouth [place] 00 daily. [facility] Branch cetirizine Yes [id number] 10mg Take 1 U nivers (ZYRTEC) 10 5-16 tablet by ity of mg tablet 00:00: mouth [place] 00 daily. [facility] Branch cetirizine Yes [id number] 10mg Take 1 U nivers (ZYRTEC) 10 5-16 tablet by ity of mg tablet 00:00: mouth [place] 00 daily. [facility] Branch cetirizine Yes [id number] 10mg Take 1 U nivers (ZYRTEC) 10 5-16 tablet by ity of mg tablet 00:00: mouth [place] 00 daily. [facility] Branch cetirizine Yes [id number] 10mg Take 1 U nivers (ZYRTEC) 10 5-16 tablet by ity of mg tablet 00:00: mouth [place] 00 daily. [facility] Branch cetirizine 2021- No [id number] 10mg Take 1 Univers (ZYRTEC) 10 5-16 10-18 tablet by it y of mg tablet 00:00: 00:00 mouth [place] 00 :00 daily. [facility] Branch cetirizine 2021- No [id number] 10mg Take 1 Univers (ZYRTEC) 10 5-16 10-18 tablet by it y of mg tablet 00:00: 00:00 mouth [place] 00 :00 daily. [facility] Branch cetirizine 2021- No [id number] 10mg Take 1 Univers (ZYRTEC) 10 5-16 10-18 tablet by it y of mg tablet 00:00: 00:00 mouth [place] 00 :00 daily. [facility] Branch cetirizine 2021- No [id number] 10mg Take 1 Univers (ZYRTEC) 10 5-16 [...] 4 mg tablet 5-09 ity of 00:00: [place] 00 Medical Branch DULoxetine 2022-0 Yes Univers 30 mg 5-09 ity of capsule 00:00: [place] 00 Medical Branch gabapentin 2022-0 Yes [facility] 300 mg 5-09 ity of capsule 00:00: [place] 00 Medical Branch ondansetron 2022-0 Yes Univer s 4 mg tablet 5-09 ity of 00:00: [place] 00 Medical Branch DULoxetine 2022-0 Yes [facility] 30 mg 5-09 ity of capsule 00:00: [place] 00 Medical Branch gabapentin 2022-0 Yes [facility] 300 mg 5-09 ity of capsule 00:00: [place] 00 Medical Branch ondansetron 2022-0 Yes Univer s 4 mg tablet 5-09 ity of 00:00: [place] 00 Medical Branch DULoxetine 2022-0 Yes [facility] 30 mg 5-09 ity of capsule 00:00: [place] 00 Medical Branch gabapentin 2022-0 Yes [facility] 300 mg 5-09 ity of capsule 00:00: [place] 00 Medical Branch ondansetron 2022-0 Yes Univer s 4 mg tablet 5-09 ity of 00:00: [place] 00 Medical Branch DULoxetine 2022-0 Yes Univers 30 mg 5-09 ity of capsule 00:00: [place] [id number] Medical Branch gabapentin 2022-0 Yes [facility] 300 mg 5-09 ity of capsule 00:00: [place] 00 Medical Branch ondansetron 2022-0 Yes Univer s 4 mg tablet 5-09 ity of 00:00: [place] 00 Medical Branch DULoxetine 2022-0 Yes [facility] 30 mg 5-09 ity of capsule 00:00: [place] 00 Medical Branch gabapentin 2022-0 Yes [facility] 300 mg 5-09 ity of capsule 00:00: [place] 00 Medical Branch ondansetron 2022-0 Yes Univer s 4 mg tablet 5-09 ity of 00:00: [place] 00 Medical Branch DULoxetine 2022-0 Yes [facility] 30 mg 5-09 ity of capsule 00:00: [place] [address] Medical Branch gabapentin 2022-0 Yes [facility] 300 mg 5-09 ity of capsule 00:00: [place] 00 Medical Branch ondansetron 2022-0 Yes Univer s 4 mg tablet 5-09 ity of 00:00: [place] [address] Medical Branch DULoxetine 2022-0 Yes [facility] 30 mg 5-09 ity of capsule 00:00: [place] [address] Medical Branch gabapentin 2022-0 Yes [facility] 300 mg 5-09 ity of capsule 00:00: [place] [address] Medical Branch ondansetron 2022-0 Yes Univer s 4 mg tablet 5-09 ity of 00:00: [place] [address] Medical Branch DULoxetine 2022-0 Yes [facility] 30 mg 5-09 ity of capsule 00:00: [place] [address] Medical Branch gabapentin 2022-0 Yes [facility] 300 mg 5-09 ity of capsule 00:00: [place] [address] Medical Branch ondansetron 2022-0 Yes Univer s 4 mg tablet 5-09 ity of 00:00: [place] [address] Medical Branch DULoxetine 2022-0 Yes Univers 30 mg 5-09 ity of capsule 00:00: [place] [address] Medical Branch gabapentin 2022-0 Yes Univers 300 mg 5-09 ity of capsule 00:00: [place] [address] Medical Branch ondansetron 2022-0 Yes Univer s 4 mg tablet 5-09 ity of 00:00: [place] [address] Medical Branch DULoxetine 2022-0 Yes Univers 30 mg 5-09 ity of capsule 00:00: [place] [address] Medical Branch gabapentin 2022-0 Yes [facility] 300 mg 5-09 ity of capsule 00:00: [place] [address] Medical Branch ondansetron 2022-0 Yes Univer s 4 mg tablet 5-09 ity of 00:00: [place] [address] Medical Branch DULoxetine 2022-0 2022- No Univer s 30 mg 5-09 - ity of capsule 00:00: 00:00 [place] 00 :00 Medical Branch gabapentin 2022-0 2022- No Univer s 300 mg 5-01 20- ity of capsule 00:00: 00:00 [place] 00 :00 Medical Branch ondansetron 2022-0 2022- No Unive rs 4 mg tablet -01 20- ity of 00:00: 00:00 [place] 00 :00 Medical Branch DULoxetine 2022-0 2022- No Univer s 30 mg 09-18 ity of capsule 00:00: 00:00 [place] 00 :00 Medical Branch gabapentin 2022-0 2022- No Univer s 300 mg 09-18 ity of capsule 00:00: 00:00 [place] 00 :00 Medical Branch ondansetron 2022-0 2022- No Unive rs 4 mg tablet 09-18 ity of 00:00: 00:00 [place] 00 :00 Medical Branch DULoxetine 2022-0 2022- No Univer s 30 mg 09-18 ity of capsule 00:00: 00:00 [place] 00 :00 Medical Branch gabapentin 2022-0 2022- No Univer s 300 mg 09-18 ity of capsule 00:00: 00:00 [place] 00 :00 Medical Branch ondansetron 2022-0 2- No Unive rs 4 mg tablet 09-18 ity of 00:00: 00:00 [place] 00 :00 Medical Branch DULoxetine 2022-0 2022- No Univer s 30 mg 09-18 ity of capsule 00:00: 00:00 [place] 00 :00 Medical Branch gabapentin 2022-0 2022- No Univer s 300 mg 09-18 ity of capsule 00:00: 00:00 [place] 00 :00 Medical Branch ondansetron 2022-0 2- No Unive rs 4 mg tablet 09-18 ity of 00:00: 00:00 [place] 00 :00 Medical Branch amLODIPine 2022-0 Yes Univers 5 mg tablet 4-22 ity of 00:00: [place] 00 Medical Branch amLODIPine 2022-0 Yes 5mg Take 5 mg Un sushant 5 mg tablet 4-22 by mouth. ity of 00:00: [place] 00 Medical Branch amLODIPine 2022-0 Yes Univers 5 mg tablet 4-22 ity of 00:00: [place] 00 Medical Branch amLODIPine 2022-0 Yes 5mg Take 5 mg Un sushant 5 mg tablet 4-22 by mouth. ity of 00:00: [place] 00 Medical Branch amLODIPine 2022-0 Yes Univers 5 mg tablet 4-22 ity of 00:00: [place] 00 Medical Branch amLODIPine 2022-0 Yes 5mg Take 5 mg Un sushant 5 mg tablet 4-22 by mouth. ity of 00:00: [place] [facility] Branch amLODIPine 2022-0 Yes Univers 5 mg tablet 4-22 ity of 00:00: [place] [facility] Branch amLODIPine 2022-0 Yes 5mg Take 5 mg Un sushant 5 mg tablet 4-22 by mouth. ity of 00:00: [place] [facility] Branch amLODIPine 2022-0 Yes Univers 5 mg tablet 4-22 ity of 00:00: [place] [facility] amLODIPine 2022-0 Yes 5mg Take 5 mg Un sushant 5 mg tablet 4-22 by mouth. ity of 00:00: [place] [facility] Branch amLODIPine 2022-0 Yes Univers 5 mg tablet 4-22 ity of 00:00: [place] [facility] amLODIPine 2022-0 Yes 5mg Take 5 mg Un sushant 5 mg tablet 4-22 by mouth. ity of 00:00: [place] [facility] Branch amLODIPine 2022-0 Yes Univers 5 mg tablet 4-22 ity of 00:00: [place] [facility] amLODIPine 2022-0 Yes 5mg Take 5 mg Un sushant 5 mg tablet 4-22 by mouth. ity of 00:00: [place] [facility] Branch amLODIPine 2-0 Yes Univers 5 mg tablet 4-22 ity of 00:00: [place] [facility] amLODIPine 2022-0 Yes 5mg Take 5 mg Un sushant 5 mg tablet 4-22 by mouth. ity of 00:00: [place] [facility] amLODIPine 2022-0 Yes Univers 5 mg tablet 4-22 ity of 00:00: [place] [facility] amLODIPine 2022-0 Yes 5mg Take 5 mg Un sushant 5 mg tablet 4-22 by mouth. ity of 00:00: [place] [facility] amLODIPine 2022-0 Yes Univers 5 mg tablet 4-22 ity of 00:00: [place] [facility] amLODIPine 2022-0 Yes 5mg Take 5 mg Un sushant 5 mg tablet 4-22 by mouth. ity of 00:00: [place] [facility] amLODIPine 2022-0 Yes Univers 5 mg tablet 4-22 ity of 00:00: [place] [facility] amLODIPine 2022-0 Yes 5mg Take 5 mg Un sushant 5 mg tablet 4-22 by mouth. ity of 00:00: [place] 00 Medical Branch amLODIPine 2-0 2022- No Univer s 5 mg tablet 09-01 ity of 00:00: 00:00 [place] 00 :00 Medical Branch amLODIPine 2022-0 2022- No 5mg Take 5 mg U nivers 5 mg tablet 09-01 by mouth. it y of 00:00: 00:00 [place] 00 :00 Medical Branch amLODIPine 2022-0 2022- No Univer s 5 mg tablet 09-01 ity of 00:00: 00:00 [place] 00 :00 Medical Branch amLODIPine 2022-0 2022- No 5mg Take 5 mg U nivers 5 mg tablet 09-01 by mouth. it y of 00:00: 00:00 [place] 00 :00 Medical Branch amLODIPine 2022-0 2022- No Univer s 5 mg tablet 09-01 ity of 00:00: 00:00 [place] 00 :00 Medical Branch amLODIPine 2022-0 2022- No 5mg Take 5 mg U nivers 5 mg tablet 09-01 by mouth. it y of 00:00: 00:00 [place] 00 :00 Medical Branch amLODIPine 2022-0 2022- No Univer s 5 mg tablet 09-01 ity of 00:00: 00:00 [place] 00 :00 Medical Branch amLODIPine 2022-0 2022- No 5mg Take 5 mg U nivers 5 mg tablet 09-01 by mouth. it y of 00:00: 00:00 [place] 00 :00 Medical Branch buPROPion 2021-0 Yes [...] 00:00: [place] tablet 00 Medical Branch buPROPion 2022-0 Yes [facility] XL 150 mg 4-20 ity of 24 hr 00:00: [place] tablet 00 Medical Branch buPROPion Yes [facility] XL 150 mg 4-20 ity of 24 hr 00:00: [place] tablet 00 Medical Branch buPROPion Yes [facility] XL 150 mg 4-20 ity of 24 hr 00:00: [place] tablet 00 [facility] Branch buPROPion Yes Univers XL 150 [...] 00:00: 04:59 mouth. [place] tablet 00 :00 [facility] Branch buPROPion 2022- No 150mg Take 150 Un sushant XL 150 mg 4-20 04-21 mg by ity of 24 hr 00:00: 04:59 mouth. [place] tablet 00 :00 [facility] Branch buPROPion 2022- No 150mg Take 150 Un sushant XL 150 mg 4-20 04-21 mg by ity of 24 hr 00:00: 04:59 mouth. [place] tablet 00 :00 [facility] buPROPion 3- No 150mg Take [...] 00:00: 04:59 mouth. [place] tablet 00 :00 [facility] Branch buPROPion 3- No 150mg Take 150 [...] [place] tablet 00 :00 Medical Branch buPROPion 2022-0 2022- No [facility] XL 150 mg 4-20 10-18 [...] by ity of 00:00: 00:00 mouth 2 [place] 00 :00 (two) Medical times Branch daily. carvediloL 2020-05- No 25mg Take 1 Univ ers 25 mg 2-30 10-18 tablet by ity of tablet 00:00: 00:00 mouth 2 [place] 00 :00 (two) Medical times Branch daily with meals. losartan 50 2020-05- No 50mg Take 1 Uni vers mg tablet 2-30 10-18 tablet by ity of 00:00: 00:00 mouth 2 [place] 00 :00 (two) Medical times Branch daily. carvediloL 2020-05- No 25mg Take 1 Univ ers 25 mg 2-30 10-18 tablet by ity of tablet 00:00: 00:00 mouth 2 [place] 00 :00 (two) Medical times Branch daily with meals. losartan 50 2020-05- No 50mg Take 1 Uni vers mg tablet 2-30 10-18 tablet by ity of 00:00: 00:00 mouth 2 [place] 00 :00 (two) Medical times Branch daily. carvediloL 2020-05- No 25mg Take 1 Univ ers 25 mg 2-30 10-18 tablet by ity of tablet 00:00: 00:00 mouth 2 [place] 00 :00 (two) Medical times Branch daily with meals. losartan 50 2020-05- No 50mg Take 1 Uni vers mg tablet 2-30 10-18 tablet by ity of 00:00: 00:00 mouth 2 [place] 00 :00 (two) Medical times Branch daily. Immunizations Ordered Filled Immunization Date Status Comments [facility] e Immunization Name Name Influenza Virus 2022-02-27 Completed [facility] Vaccine [facility], 00:00:00 [place] Me dical Preserv and ABX Branch Free [...] [facility]it [facility] of Vaccine [facility] IM, 00:00:00 [place] Me dical Preserv and ABX Branch Free 6 MO-64 YRS Influenza Virus 2022-02-27 Completed [facility]it y of Vaccine [facility], 00:00:00 [place] Me dical Preserv and ABX Branch Free 6 MO-64 YRS Influenza Virus 2022-02-27 Completed [facility]it y of Vaccine [facility] IM, 00:00:00 [place] Me dical Preserv and ABX Branch Free 6 MO-64 YRS Influenza Virus 2022-02-27 Completed [facility], 00:00:00 [place] [facility] and ABX Branch Free 6 MO-64 YRS Influenza Virus 2022-02-27 Completed [facility], 00:00:00 [place] [facility] Preserv and ABX Branch Free [...] [facility], 00:00:00 [place] [facility] Preserv and ABX Branch Free [...] Vaccine Quad .5 mL 00:00:00 [facility] 6+ MO Branch Influenza Virus 2022-02-21 Completed [facility] Vaccine Quad .5 mL 00:00:00 [facility] 6+ MO [facility] Influenza Virus 2022-02-21 Completed [facility] of Vaccine Quad .5 mL 00:00:00 [facility] 6+ MO Branch Influenza Virus 2022-02-21 Completed [facility] of Vaccine Quad .5 mL 00:00:00 [facility] IM 6+ MO Branch Influenza Virus 2022-02-21 Completed [facility] of Vaccine Quad .5 mL 00:00:00 [facility] 6+ MO Branch Influenza Virus 2021-06-11 Completed [facility]it [facility] of Vaccine 00:00:00 [facility] Influenza Virus 2021-06-11 Completed [facility] of Vaccine 00:00:00 [facility] Influenza Virus 2021-06-11 Completed [facility] of Vaccine 00:00:00 [facility] Influenza Virus 2021-06-11 Completed [facility] of Vaccine 00:00:00 [facility] Influenza Virus 2021-06-11 Completed [facility] of Vaccine 00:00:00 [facility] Influenza Virus 2021-06-11 Completed [facility] of Vaccine 00:00:00 [facility] Influenza Virus 2021-06-11 Completed [facility] of Vaccine 00:00:00 [facility] Influenza Virus 2021-06-11 Completed [facility] of Vaccine 00:00:00 [facility] Influenza Virus 2021-06-11 Completed [facility] of Vaccine 00:00:00 [facility] Influenza Virus 2021-06-11 Completed [facility] of Vaccine 00:00:00 [facility] Influenza Virus 2021-06-11 Completed [facility] of Vaccine 00:00:00 [facility] Influenza Virus 2021-06-11 Completed [facility] of Vaccine 00:00:00 [facility] Influenza Virus 2021-06-11 Completed [facility] of Vaccine 00:00:00 [facility] Influenza Virus 2021-06-11 Completed [facility] of Vaccine 00:00:00 [facility] Influenza Virus 2021-06-11 Completed [facility] of Vaccine 00:00:00 [facility] Influenza Virus 2021-06-11 Completed [facility] of Vaccine 00:00:00 [facility] Influenza Virus 2021-06-11 Completed [facility] of Vaccine 00:00:00 [facility] Influenza Virus 2021-06-11 Completed [facility] of Vaccine 00:00:00 [facility] Influenza Virus 2021-06-11 Completed [facility] of Vaccine 00:00:00 [facility] Influenza Virus 2021-06-11 Completed [facility] of Vaccine 00:00:00 [facility] Influenza Virus 2021-06-11 Completed [facility] of Vaccine 00:00:00 [facility] Influenza Virus 2021-06-11 Completed [facility] of Vaccine 00:00:00 [facility] Influenza Virus 2021-06-11 Completed [facility] of Vaccine 00:00:00 [facility] Influenza Virus 2021-06-11 Completed [facility] of Vaccine 00:00:00 [facility] Influenza Virus 2021-06-11 Completed [facility] of Vaccine 00:00:00 [facility] Influenza Virus 2021-06-11 Completed [facility] of Vaccine 00:00:00 [facility] Influenza Virus 2021-06-11 Completed [facility] of Vaccine 00:00:00 [facility] Influenza Virus 2021-06-11 Completed [facility] of Vaccine 00:00:00 [facility] Influenza Virus 2021-06-11 Completed [facility] of Vaccine 00:00:00 [facility] Influenza Virus 2021-06-11 Completed [facility] of Vaccine 00:00:00 [facility] Influenza Virus 2021-06-11 Completed [facility] of Vaccine 00:00:00 [facility] Influenza Virus 2021-06-11 Completed [facility] of Vaccine 00:00:00 [facility] Influenza Virus 2021-06-11 Completed [facility] of Vaccine 00:00:00 [facility] Influenza Virus 2021-06-11 Completed [facility] of Vaccine 00:00:00 [facility] Influenza Virus 2021-06-11 Completed [facility] of Vaccine 00:00:00 [facility] Influenza Virus 2021-06-11 Completed [facility] of Vaccine 00:00:00 [facility] Influenza Virus 2021-06-11 Completed [facility] of Vaccine 00:00:00 [facility] Influenza Virus 2021-06-11 Completed [facility] of Vaccine 00:00:00 [facility] Influenza Virus 2021-06-11 Completed [facility] y of Vaccine 00:00:00 [facility] Influenza Virus 2021-06-11 Completed [facility] of Vaccine 00:00:00 [facility] Influenza Virus 2021-06-11 Completed [facility] of Vaccine 00:00:00 [facility] Influenza Virus 2021-06-11 Completed [facility] y of Vaccine 00:00:00 [facility] Influenza Virus 2021-06-11 Completed [facility] of Vaccine 00:00:00 [facility] Influenza Virus 2021-06-11 Completed [facility] of Vaccine 00:00:00 [facility] Influenza Virus 2021-06-11 Completed [facility] y of Vaccine 00:00:00 [facility] Influenza Virus 2021-06-11 Completed [facility] y of Vaccine 00:00:00 [facility] Influenza Virus 2021-06-11 Completed [facility] y of Vaccine 00:00:00 [facility] Influenza Virus 2021-06-11 Completed [facility] y of Vaccine 00:00:00 [facility] Influenza Virus 2021-06-11 Completed [facility] of Vaccine Quad .5 mL 00:00:00 [facility] 6+ MO Branch Influenza Virus 2021-06-11 Completed [facility] y of Vaccine 00:00:00 [facility] Influenza Virus 2021-06-11 Completed [facility] of Vaccine Quad .5 mL 00:00:00 [facility] 6+ MO Branch Influenza Virus 2021-06-11 Completed [facility]it y of Vaccine 00:00:00 [facility] Influenza Virus 2021-06-11 Completed [facility] of Vaccine Quad .5 mL 00:00:00 [facility] 6+ MO Branch Influenza Virus 2021-06-11 Completed [facility] y of Vaccine 00:00:00 [facility] Influenza Virus 2021-06-11 Completed [facility] of Vaccine Quad .5 mL 00:00:00 [facility] IM 6+ MO Branch Influenza Virus 2021-06-11 Completed [facility] of Vaccine 00:00:00 [facility] Influenza Virus 2021-06-11 Completed [facility] of Vaccine Quad .5 mL 00:00:00 [facility] IM 6+ MO Branch Influenza Virus 2021-06-11 Completed [facility] y of Vaccine 00:00:00 [facility] Influenza Virus 2021-06-11 Completed [facility] of Vaccine Quad .5 mL 00:00:00 [facility] 6+ MO Branch Influenza Virus 2021-06-11 Completed [facility] y of Vaccine 00:00:00 [facility] Influenza Virus 2021-06-11 Completed [facility] of Vaccine Quad .5 mL 00:00:00 [facility] 6+ MO Branch Influenza Virus 2021-06-11 Completed [facility] y of Vaccine 00:00:00 [facility] Influenza Virus 2021-06-11 Completed [facility] of Vaccine Quad .5 mL 00:00:00 [facility] 6+ MO Branch Influenza Virus 2021-06-11 Completed [facility] y of Vaccine 00:00:00 [facility] Influenza Virus 2021-06-11 Completed [facility] of Vaccine Quad .5 mL 00:00:00 [facility] 6+ MO Branch Influenza Virus 2021-06-11 Completed [facility] y of Vaccine 00:00:00 [facility] Influenza Virus 2021-06-11 Completed [facility] of Vaccine Quad .5 mL 00:00:00 [facility] 6+ MO Branch Influenza Virus 2021-06-11 Completed [facility] y of Vaccine 00:00:00 [facility] Influenza Virus 2021-06-11 Completed [facility] of Vaccine Quad .5 mL 00:00:00 [facility] 6+ MO Branch Influenza Virus 2021-06-11 Completed [facility] y of Vaccine 00:00:00 [facility] Influenza Virus 2021-06-11 Completed [facility] of Vaccine Quad .5 mL 00:00:00 [facility] 6+ MO Branch Influenza Virus 2020-05-19 Completed [facility] of Vaccine 00:00:00 [facility] Influenza Virus 2020-05-19 Completed [facility] of Vaccine 00:00:00 [facility] Influenza Virus 2020-05-19 Completed [facility] y of Vaccine 00:00:00 [facility] Influenza Virus 2020-05-19 Completed [facility] of Vaccine 00:00:00 [facility] Influenza Virus 2020-05-19 Completed [facility] of Vaccine 00:00:00 [facility] Influenza Virus 2020-05-19 Completed [facility] of Vaccine 00:00:00 [facility] Influenza Virus 2020-05-19 Completed [facility] y of Vaccine 00:00:00 [facility] Influenza Virus 2020-05-19 Completed [facility] of Vaccine 00:00:00 [facility] Influenza Virus 2020-05-19 Completed [facility] of Vaccine 00:00:00 [facility] Influenza Virus 2020-05-19 Completed [facility] of Vaccine 00:00:00 [facility] Influenza Virus 2020-05-19 Completed [facility] of Vaccine 00:00:00 [facility] Influenza Virus 2020-05-19 Completed [facility] of Vaccine 00:00:00 [facility] Influenza Virus 2020-05-19 Completed [facility] of Vaccine 00:00:00 [facility] Influenza Virus 2020-05-19 Completed [facility] y of Vaccine 00:00:00 [facility] Influenza Virus 2020-05-19 Completed [facility] Vaccine 00:00:00 [facility] Influenza Virus 2020-05-19 Completed [facility] y of Vaccine 00:00:00 [facility] Influenza Virus 2020-05-19 Completed [facility] of Vaccine 00:00:00 [facility] Influenza Virus 2020-05-19 Completed [facility] Vaccine 00:00:00 [facility] Influenza Virus 2020-05-19 Completed [facility] y of Vaccine 00:00:00 [facility] Influenza Virus 2020-05-19 Completed [facility] y of Vaccine 00:00:00 [facility] Influenza Virus 2020-05-19 Completed [facility] y of Vaccine 00:00:00 [facility] Influenza Virus 2020-05-19 Completed [facility] y of Vaccine 00:00:00 [facility] Influenza Virus 2020-05-19 Completed [facility] y of Vaccine 00:00:00 [facility] Influenza Virus 2020-05-19 Completed [facility] y of Vaccine 00:00:00 [facility] Influenza Virus 2020-05-19 Completed [facility] of Vaccine 00:00:00 [facility] Influenza Virus 2020-05-19 Completed [facility] of Vaccine 00:00:00 [facility] Influenza Virus 2020-05-19 Completed [facility] y of Vaccine 00:00:00 [facility] Influenza Virus 2020-05-19 Completed [facility] of Vaccine 00:00:00 [facility] Influenza Virus 2020-05-19 Completed [facility] Vaccine 00:00:00 [facility] Influenza Virus 2020-05-19 Completed [facility] of Vaccine 00:00:00 [facility] Influenza Virus 2020-05-19 Completed [facility] Vaccine 00:00:00 [place] [facility] Influenza Virus 2020-05-19 Completed [facility] of Vaccine 00:00:00 [facility] Influenza Virus 2020-05-19 Completed [facility] of Vaccine 00:00:00 [facility] Influenza Virus 2020-05-19 Completed [facility] of Vaccine 00:00:00 [facility] Influenza Virus 2020-05-19 Completed [facility] of Vaccine 00:00:00 [facility] Influenza Virus 2020-05-19 Completed [facility] of Vaccine 00:00:00 [facility] Influenza Virus 2020-05-19 Completed [facility] Vaccine 00:00:00 [facility] Influenza Virus 2020-05-19 Completed [facility] Vaccine 00:00:00 [facility] Influenza Virus 2020-05-19 Completed [facility] of Vaccine 00:00:00 [facility] Influenza Virus 2020-05-19 Completed [facility] of Vaccine 00:00:00 [facility] Influenza Virus 2020-05-19 Completed [facility] of Vaccine 00:00:00 [facility] Influenza Virus 2020-05-19 Completed [facility] of Vaccine 00:00:00 [facility] Influenza Virus 2020-05-19 Completed [facility] of Vaccine 00:00:00 [facility] Influenza Virus 2020-05-19 Completed [facility] of Vaccine 00:00:00 [facility] Influenza Virus 2020-05-19 Completed [facility] of Vaccine 00:00:00 [facility] Influenza Virus 2020-05-19 Completed [facility] of Vaccine 00:00:00 [facility] Influenza Virus 2020-05-19 Completed [facility] of Vaccine 00:00:00 [facility] Influenza Virus 2020-05-19 Completed [facility] of Vaccine 00:00:00 [facility] Influenza Virus 2020-05-19 Completed [facility] of Vaccine 00:00:00 [facility] Influenza Virus 2020-05-19 Completed [facility] of Vaccine 00:00:00 [facility] Influenza Virus 2020-05-19 Completed [facility] of Vaccine 00:00:00 [facility] Influenza Virus 2020-05-19 Completed [facility] of Vaccine 00:00:00 [facility] Influenza Virus 2020-05-19 Completed [facility] of Vaccine 00:00:00 [facility] Influenza Virus 2020-05-19 Completed [facility] of Vaccine 00:00:00 [facility] Influenza Virus 2020-05-19 Completed [facility] of Vaccine 00:00:00 [facility] Influenza Virus 2020-05-19 Completed [facility] of Vaccine 00:00:00 [facility] Influenza Virus 2020-05-19 Completed [facility] of Vaccine 00:00:00 [facility] Influenza Virus 2020-05-19 Completed [facility] y of Vaccine 00:00:00 [facility] Influenza Virus 2020-05-19 Completed [facility] y of Vaccine 00:00:00 [facility] Influenza Virus 2020-05-16 Completed Universit y [...] Completed University of VACCINE 00:00:00 [facility] TDAP (ADACEL) 2019-05-21 Completed University of VACCINE 00:00:00 [facility] TDAP (ADACEL) 2019-05-21 Completed University of VACCINE 00:00:00 [facility] TDAP (ADACEL) 2019-05-21 Completed University of VACCINE 00:00:00 [facility] TDAP (ADACEL) 2019-05-21 Completed University of VACCINE 00:00:00 [facility] TDAP (ADACEL) 2019-05-21 Completed University of VACCINE 00:00:00 [facility] TDAP (ADACEL) 2019-05-21 Completed University of VACCINE 00:00:00 [facility] TDAP (ADACEL) 2019-05-21 Completed [facility] VACCINE 00:00:00 [facility] TDAP (ADACEL) 2019-05-21 Completed [facility] of VACCINE 00:00:00 [facility] TDAP (ADACEL) 2019-05-21 Completed [facility] of VACCINE 00:00:00 [facility] TDAP (ADACEL) 2019-05-21 Completed [facility] of VACCINE 00:00:00 [facility] TDAP (ADACEL) 2019-05-21 Completed [facility] of VACCINE 00:00:00 [facility] TDAP (ADACEL) 2019-05-21 Completed [facility] of VACCINE 00:00:00 [facility] TDAP (ADACEL) 2019-05-21 Completed University of VACCINE 00:00:00 [facility] TDAP (ADACEL) 2019-05-21 Completed [facility] of VACCINE 00:00:00 [facility] TDAP (ADACEL) 2019-05-21 Completed University of VACCINE 00:00:00 [facility] TDAP (ADACEL) 2019-05-21 Completed University of VACCINE 00:00:00 [facility] TDAP (ADACEL) 2019-05-21 Completed [facility] of VACCINE 00:00:00 [facility] TDAP (ADACEL) 2019-05-21 Completed [facility] of VACCINE 00:00:00 [facility] TDAP (ADACEL) 2019-05-21 Completed [facility] of VACCINE 00:00:00 [facility] TDAP (ADACEL) 2019-05-21 Completed [facility] of VACCINE 00:00:00 [facility] TDAP (ADACEL) 2019-05-21 Completed [facility] of VACCINE 00:00:00 [facility] TDAP (ADACEL) 2019-05-21 Completed [facility] of VACCINE 00:00:00 [facility] TDAP (ADACEL) 2019-05-21 Completed University of VACCINE 00:00:00 [facility] TDAP (ADACEL) 2019-05-21 Completed [facility] of VACCINE 00:00:00 [facility] TDAP (ADACEL) 2019-05-21 Completed [facility] of VACCINE 00:00:00 [facility] TDAP (ADACEL) 2019-05-21 Completed [facility] of VACCINE 00:00:00 [facility] TDAP (ADACEL) 2019-05-21 Completed [facility] of VACCINE 00:00:00 [facility] TDAP (ADACEL) 2019-05-21 Completed University of VACCINE 00:00:00 [facility] TDAP (ADACEL) 2019-05-21 Completed University [...] (ADACEL) 2019-05-21 Completed [facility] of VACCINE 00:00:00 [facility] TDAP (ADACEL) 2019-05-21 Completed [facility] of VACCINE 00:00:00 [facility] TDAP (ADACEL) 2019-05-21 Completed [facility] of VACCINE 00:00:00 [facility] TDAP (ADACEL) 2019-05-21 Completed [facility] of VACCINE 00:00:00 [facility] TDAP (ADACEL) 2019-05-21 Completed [facility] of VACCINE 00:00:00 [facility] TDAP (ADACEL) 2019-05-21 Completed [facility] of VACCINE 00:00:00 [facility] TDAP (ADACEL) 2019-05-21 Completed [facility] of VACCINE 00:00:00 [facility] TDAP (ADACEL) 2019-05-21 Completed [facility] of VACCINE 00:00:00 [facility] TDAP (ADACEL) 2019-05-21 Completed [facility] of VACCINE 00:00:00 [facility] TDAP (ADACEL) 2019-05-21 Completed [facility] of VACCINE 00:00:00 [facility] TDAP (ADACEL) 2019-05-21 Completed [facility] of VACCINE 00:00:00 [facility] TDAP (ADACEL) 2019-05-21 Completed [facility] of VACCINE 00:00:00 [facility] TDAP (ADACEL) 2019-05-21 Completed [facility] of VACCINE 00:00:00 [facility] TDAP (ADACEL) 2019-05-21 Completed [facility] of VACCINE 00:00:00 [facility] TDAP (ADACEL) 2019-05-21 Completed [facility] of VACCINE 00:00:00 [facility] TDAP (ADACEL) 2019-05-21 Completed [facility] of VACCINE 00:00:00 [facility] TDAP (ADACEL) 2019-05-21 Completed [facility] of VACCINE 00:00:00 [facility] TDAP (ADACEL) 2019-05-21 Completed University of VACCINE 00:00:00 [facility] TDAP (ADACEL) 2019-05-21 Completed University of VACCINE 00:00:00 [facility] TDAP (ADACEL) 2019-05-21 Completed [facility] of VACCINE 00:00:00 [facility] TDAP (ADACEL) 2019-05-21 Completed University of VACCINE 00:00:00 [facility] TDAP (ADACEL) 2019-05-21 Completed University of VACCINE 00:00:00 [facility] TDAP (ADACEL) 2019-05-21 Completed [facility] of VACCINE 00:00:00 [facility] TDAP (ADACEL) 2019-05-21 Completed University of VACCINE 00:00:00 [facility] TDAP (ADACEL) 2019-05-21 Completed [facility] of VACCINE 00:00:00 [facility] Influenza Virus 2019-02-06 Completed Universit [...] Vaccine Quad .5 mL 00:00:00 [facility] 6+ MO Branch Influenza Virus 2019-02-06 Completed [facility] of Vaccine Quad .5 mL 00:00:00 [facility] 6+ MO Branch Influenza Virus 2019-02-06 Completed [facility] of Vaccine Quad .5 mL 00:00:00 [facility] 6+ MO Branch Influenza Virus 2019-02-06 Completed [facility] of Vaccine Quad .5 mL 00:00:00 [facility] 6+ MO Branch Influenza Virus 2019-02-06 Completed [facility] of Vaccine Quad .5 mL 00:00:00 [facility] 6+ MO Branch Influenza Virus 2019-02-06 Completed [facility] of Vaccine Quad .5 mL 00:00:00 [facility] 6+ MO Branch Influenza Virus 2019-02-06 Completed [...] Vaccine Quad .5 mL 00:00:00 [facility] 6+ MO Branch Influenza Virus 2019-02-06 [...] Vaccine Quad .5 mL 00:00:00 [facility] 6+ MO Branch Influenza Virus 2019-02-06 [...] Vaccine Quad .5 mL 00:00:00 [facility] 6+ MO Branch Vital Signs Vital Name Observation Time Observation Value Comments Source Systolic blood 2022-11-21 21:40:00 122 mm[Hg] Univer sity of pressure [facility] Diastolic blood 2022-11-21 21:40:00 90 mm[Hg] Unive rsity of pressure [facility] Heart rate 2022-11-21 21:40:00 92 /min Universi ty of [facility] Respiratory rate 2022-11-21 21:40:00 16 /min Univ ersity of [facility] Oxygen saturation in 2022-11-21 21:40:00 99 /min [facility] of Arterial blood by [facility] P[facility] oximetry [facility] Body temperature 2022-11-21 18:07:00 37.28 Irene Univ [facility] of [facility] Body weight 2022-11-21 18:07:00 68.04 kg [facility] BMI 2022-11-21 18:07:00 28.34 kg/m2 [facility] Systolic blood 2022-09-05 17:22:00 139 mm[Hg] Univer sity of pressure [facility] Diastolic blood 2022-09-05 17:22:00 91 mm[Hg] Unive rsity of pressure [facility] Heart rate 2022-09-05 17:22:00 120 /min [facility] Respiratory rate 2022-09-05 17:22:00 18 /min Univ ersity of [facility] Oxygen saturation in 2022-09-05 17:22:00 99 /min University of Arterial blood by [facility] yessi Pulse oximetry Branch Body temperature 2022-09-05 13:43:00 37.11 Irene [facility] Body weight 2022-09-05 13:43:00 68.04 kg [facility] BMI 2022-09-05 13:43:00 28.34 kg/m2 [facility] Systolic blood 2022-08-01 00:49:00 138 mm[Hg] Univer sity of pressure [facility] Diastolic blood 2022-08-01 00:49:00 104 mm[Hg] Unive rsity of pressure [facility] Heart rate 2022-08-01 00:49:00 108 /min [facility] Respiratory rate 2022-08-01 00:49:00 18 /min Univ [facility] Oxygen saturation in 2022-08-01 00:49:00 99 /min [facility] [place] [facility] Body temperature 2022-07-31 22:52:00 37.11 Irene [facility] [place] [facility] Body height 2022-07-31 22:52:00 154.9 cm [facility] [place] [facility] Body weight 2022-07-31 22:52:00 68.04 kg [facility] [place] [facility] BMI 2022-07-31 22:52:00 28.34 kg/m2 [facility] [place] [facility] Systolic blood 2022-07-15 15:32:00 130 mm[Hg] Univer [facility]ity [facility] [place] [facility] Diastolic blood 2022-07-15 15:32:00 90 mm[Hg] Unive rsity [facility] [place] [facility] Heart rate 2022-07-15 15:31:00 81 /min [facility] [place] [facility] Body temperature 2022-07-15 15:31:00 36.94 Irene [facility] [place] [facility] Respiratory rate 2022-07-15 15:31:00 16 /min [facility] [place] [facility] Body weight 2022-07-15 15:31:00 68.493 kg [facility] [place] [facility] BMI 2022-07-15 15:31:00 28.53 kg/m2 [facility] [place] [facility] Oxygen saturation in 2022-07-15 15:31:00 99 /min [facility] [place] [facility] Systolic blood 2022-06-23 15:26:00 111 mm[Hg] [facility] Diastolic blood 2022-06-23 15:26:00 75 mm[Hg] [facility]ive [facility] Heart rate 2022-06-23 15:26:00 108 /min [facility] [place] [facility] Body temperature 2022-06-23 15:26:00 36.83 Irene [facility] [place] [facility] Respiratory rate 2022-06-23 15:26:00 18 /min [facility] [place] [facility] Body height 2022-06-23 15:26:00 154.9 cm [facility] [place] [facility] Body weight 2022-06-23 15:26:00 71.385 kg [facility] [place] [facility] BMI 2022-06-23 15:26:00 29.74 kg/m2 [facility] [place] [facility] Oxygen saturation in 2022-06-23 15:26:00 99 /min [facility] [place] [facility] Systolic blood 2022-05-05 22:05:00 126 mm[Hg] [facility] [place] [facility] Diastolic blood 2022-05-05 22:05:00 75 mm[Hg] [facility]ive [facility] [place] [facility] Heart rate 2022-05-05 22:05:00 99 /min [facility] [place] [facility] Respiratory rate 2022-05-05 22:05:00 16 /min [facility] [place] [facility] Oxygen saturation in 2022-05-05 22:05:00 99 /min [facility] [place] [facility] Body temperature 2022-05-05 18:24:00 37.11 Irene [facility] [place] [facility] Body height 2022-05-05 18:24:00 154.9 cm [facility] Body weight 2022-05-05 18:24:00 54.432 kg [facility] [place] [facility] BMI 2022-05-05 18:24:00 22.67 kg/m2 [facility] [place] [facility] Systolic blood 2022-04-26 14:28:00 135 mm[Hg] [facility] [place] [facility] Diastolic blood 2022-04-26 14:28:00 95 [...] 2022-04-26 00:21:00 36.72 Irene [facility] [place] [facility] Respiratory rate 2022-04-26 00:21:00 18 /min [facility] [place] [facility] Body height 2022-04-26 00:21:00 154.9 cm [facility] [place] [facility] Body weight 2022-04-26 00:21:00 54.432 kg [facility] [place] [facility] BMI 2022-04-26 00:21:00 22.67 kg/m2 [facility] [place] [facility] Oxygen saturation in 2022-04-26 00:21:00 100 /min [facility] [place] [facility] Systolic blood 2022-04-09 14:39:00 122 mm[Hg] [facility] [place] [facility] Diastolic blood 2022-04-09 14:39:00 84 mm[Hg] [facility]ive rs[facility] [place] [facility] Heart rate 2022-04-09 14:39:00 96 /min [facility] [place] [facility] Body height 2022-04-09 14:39:00 154.9 cm [facility] Body weight 2022-04-09 14:39:00 60.328 kg [facility] [place] [facility] BMI 2022-04-09 14:39:00 25.13 kg/m2 [facility] [place] [facility] Oxygen saturation in 2022-04-09 14:39:00 98 /min [facility] [place] [facility] Systolic blood 2022-04-07 22:43:36 131 mm[Hg] [facility] [place] [facility] Diastolic blood 2022-04-07 22:43:36 83 mm[Hg] [facility] [place] [facility] Heart rate 2022-04-07 22:43:36 113 /min [facility] [place] [facility] Respiratory rate 2022-04-07 22:43:36 18 /min [facility] [place] [facility] Oxygen saturation in 2022-04-07 22:43:36 97 /min [facility] [place] [facility] Body temperature 2022-04-07 19:41:00 37.17 Irene [facility] [place] [facility] Body height 2022-04-07 19:41:00 154.9 cm [facility] Body weight 2022-04-07 19:41:00 60.328 kg [facility] [place] [facility] BMI 2022-04-07 19:41:00 25.13 kg/m2 [facility] [place] [facility] Systolic blood 2022-03-24 19:00:00 125 mm[Hg] [facility] [place] [facility] Diastolic blood 2022-03-24 19:00:00 86 mm[Hg] [facility] [place] [facility] Heart rate 2022-03-24 19:00:00 93 /min [facility] [place] [facility] Respiratory rate 2022-03-24 19:00:00 17 /min [facility] [place] [facility] Oxygen saturation in 2022-03-24 19:00:00 97 /min [facility] [place] [facility] P[facility] Body temperature 2022-03-24 13:33:00 36.78 Irene [facility] [place] [facility] Systolic blood 2022-03-15 19:23:00 128 mm[Hg] [facility] [place] [facility] Diastolic blood 2022-03-15 19:23:00 89 mm[Hg] [facility] [place] [facility] Heart rate 2022-03-15 19:23:00 104 /min [facility] [place] [facility] Body weight 2022-03-15 19:23:00 60.328 kg [facility] [place] [facility] BMI 2022-03-15 19:23:00 25.13 kg/m2 [facility] [place] [facility] Oxygen saturation in 2022-03-15 19:23:00 98 /min [facility] [place] [facility] Systolic blood 2022-03-15 15:02:00 115 mm[Hg] [facility] [place] [facility] Diastolic blood 2022-03-15 15:02:00 70 mm[Hg] [facility] [place] [facility] Heart rate 2022-03-15 15:02:00 85 /min [facility] [place] [facility] Respiratory rate 2022-03-15 15:02:00 20 /min [facility] [place] [facility] Oxygen saturation in 2022-03-15 15:02:00 99 /min [facility] [place] [facility] Body temperature 2022-03-15 13:38:00 36.94 Irene [facility] [place] [facility] Body height 2022-03-15 13:38:00 154.9 cm [facility] [place] [facility] Body weight 2022-03-15 13:38:00 54.432 kg [facility] [place] [facility] BMI 2022-03-15 13:38:00 22.67 kg/m2 [facility] [place] [facility] Systolic blood 2022-03-11 16:30:00 124 mm[Hg] [facility] [place] [facility] Diastolic blood 2022-03-11 16:30:00 88 mm[Hg] [facility] [place] [facility] Heart rate 2022-03-11 16:30:00 93 /min [facility] [place] [facility] Body temperature 2022-03-11 16:30:00 36.67 Irene [facility] [place] [facility] Respiratory rate 2022-03-11 16:30:00 14 /min [facility] [place] [facility] Oxygen saturation in 2022-03-11 16:30:00 100 /min [facility] by [facility] P[facility] Body height 2022-03-11 14:19:00 154.9 cm [facility] [place] [facility] Body weight 2022-03-11 14:19:00 58.968 kg [facility] [place] [facility] BMI 2022-03-11 14:19:00 24.56 kg/m2 [facility] [place] [facility] Systolic blood 2022-02-27 14:14:00 140 mm[Hg] [facility] [place] [facility] Diastolic blood 2022-02-27 14:14:00 90 mm[Hg] [facility] [place] [facility] Heart rate 2022-02-27 14:14:00 103 /min [facility] [place] [facility] Body height 2022-02-27 14:14:00 154.9 cm [facility] [place] [facility] Body weight 2022-02-27 14:14:00 59.194 kg [facility] [place] [facility] BMI 2022-02-27 14:14:00 24.66 kg/m2 [facility] [place] [facility] Oxygen saturation in 2022-02-27 14:14:00 100 /min [facility] by [facility] P[facility] Systolic blood 2022-02-27 13:19:00 131 mm[Hg] [facility] [place] [facility] Diastolic blood 2022-02-27 13:19:00 86 mm[Hg] [facility] Heart rate 2022-02-27 13:19:00 102 /min [facility] [place] [facility] Body temperature 2022-02-27 13:19:00 36.33 Irene [facility] [place] [facility] Body height 2022-02-27 13:19:00 154.9 cm [facility] [place] [facility] Body weight 2022-02-27 13:19:00 58.968 kg [facility] [place] [facility] BMI 2022-02-27 13:19:00 24.56 kg/m2 [facility] [place] [facility] Oxygen saturation in 2022-02-27 13:19:00 99 /min [facility] [place] [facility] Systolic blood 2022-02-21 08:06:00 135 mm[Hg] [facility] [place] [facility] Diastolic blood 2022-02-21 08:06:00 97 mm[Hg] [facility]ive [facility] Heart rate 2022-02-21 08:06:00 98 /min [facility] [place] [facility] Respiratory rate 2022-02-21 08:06:00 16 /min [facility] [place] [facility] Oxygen saturation in 2022-02-21 08:06:00 97 /min [facility] [place] [facility] Pulse oximetry Branch Body temperature 2022-02-21 06:16:00 36.94 Irene [facility] [place] [facility] Body height 2022-02-21 06:16:00 154.9 cm [facility] Body weight 2022-02-21 06:16:00 60.963 kg [facility] [place] [facility] BMI 2022-02-21 06:16:00 25.39 kg/m2 [facility] [place] [facility] Systolic blood 2022 20:08:00 136 mm[Hg] [facility] [place] [facility] Diastolic blood 2022 20:08:00 96 mm[Hg] [facility]ive [facility] [place] [facility] Heart rate 2022 20:08:00 100 /min [facility] [place] [facility] Respiratory rate 2022 20:08:00 20 /min [facility] [place] [facility] Oxygen saturation in 2022 20:08:00 98 /min [facility] blood by [facility] yessi Pulse oximetry Branch Body temperature 2022 16:56:00 37.06 Irene [facility] [place] [facility] Body weight 2022 16:56:00 54.432 kg [facility] [place] [facility] BMI 2022 16:56:00 22.67 kg/m2 [facility] [place] [facility] Systolic blood 2022-02-05 14:31:00 128 mm[Hg] [facility] [place] [facility] Diastolic blood 2022-02-05 14:31:00 84 mm[Hg] [facility] [place] [facility] Heart rate 2022-02-05 14:31:00 86 /min [facility] [place] [facility] Body temperature 2022-02-05 14:31:00 37.89 Irene [facility] [place] [facility] Respiratory rate 2022-02-05 14:31:00 18 /min [facility] [place] [facility] Body height 2022-02-05 14:31:00 154.9 cm [facility] [place] [facility] Body weight 2022-02-05 14:31:00 54.432 kg [facility] [place] [facility] BMI 2022-02-05 14:31:00 22.67 kg/m2 [facility] [place] [facility] Oxygen saturation in 2022-02-05 14:31:00 98 /min [facility] blood by [facility] Pulse oximetry Branch Systolic blood 2022-01-18 14:50:00 144 mm[Hg] [facility] [place] [facility] Diastolic blood 2022-01-18 14:50:00 92 mm[Hg] [facility]ive [facility] [place] [facility] Heart rate 2022-01-18 14:50:00 94 /min [facility] [place] [facility] Respiratory rate 2022-01-18 14:50:00 20 /min [facility] [place] [facility] Oxygen saturation in 2022-01-18 14:50:00 99 /min [facility] blood by [facility] yessi Pulse oximetry Branch Body weight 2022-01-18 10:18:00 54.432 kg [facility] [place] [facility] BMI 2022-01-18 10:18:00 22.67 kg/m2 [facility] [place] [facility] Body temperature 2022-01-18 10:15:00 36.72 Irene [facility] [place] [facility] Systolic blood 2022-01-15 15:48:26 125 mm[Hg] [facility] [place] [facility] Diastolic blood 2022-01-15 15:48:26 85 mm[Hg] [facility] [place] [facility] Heart rate 2022-01-15 15:48:26 95 /min [facility] [place] [facility] Respiratory rate 2022-01-15 15:48:26 18 /min [facility] [place] [facility] Oxygen saturation in 2022-01-15 15:48:26 98 /min [facility] by [place] [employer] P[facility] o[facility] Body temperature 2022-01-15 13:32:00 37.11 Irene [facility] [place] [facility] Body height 2022-01-15 13:32:00 154.9 cm [facility] [place] [facility] Body weight 2022-01-15 13:32:00 54.432 kg [facility] [place] [facility] BMI 2022-01-15 13:32:00 22.67 kg/m2 [facility] [place] [facility] Systolic blood 2022-01-09 00:37:11 127 mm[Hg] [facility] [place] [facility] Diastolic blood 2022-01-09 00:37:11 90 mm[Hg] [facility] [place] [facility] Heart rate 2022-01-09 00:37:11 94 /min [facility] [place] [facility] Body temperature 2022-01-09 00:37:11 37.11 Irene [facility] [place] [facility] Respiratory rate 2022-01-09 00:37:11 16 /min [facility] [place] [facility] Oxygen saturation in 2022-01-09 00:37:11 97 /min [facility]ial blood by [employer] Pulse oxim[facility] Body height 2022-01-08 23:03:00 154.9 cm [facility] [place] [facility] Body weight 2022-01-08 23:03:00 58.06 kg [facility] [place] [facility] BMI 2022-01-08 23:03:00 24.19 kg/m2 [facility] [place] [facility] Systolic blood 2021-12-12 18:00:00 126 mm[Hg] Jamal sity of pressure [facility] Diastolic blood 2021-12-12 18:00:00 87 mm[Hg] Andreae rsity of pressure [facility] Heart rate 2021-12-12 18:00:00 86 /min [facility] Body temperature 2021-12-12 18:00:00 36.89 Irene [facility] 2021-12-12 18:00:00 18 /min [facility] Body height 2021-12-12 18:00:00 154.9 cm [facility] Body weight 2021-12-12 18:00:00 57.153 kg [facility] BMI 2021-12-12 18:00:00 23.81 kg/m2 [facility] Procedures Procedure Date / Time Performing Clinician Source Performed ASSIGNMENT OF BENEFITS 2022-11-21 19:49:02 Doctor Unassigned, No [facility] Name [facility] CONSENT/REFUSAL FOR 2022-11-21 18:03:25 Doctor Unassigned, No [facility] [place] [facility] CONSENT/REFUSAL FOR 2022-09-05 13:42:02 Doctor Unassigned, No [facility] [place] [facility] LIPASE 2022-07-31 23:13:00 Manju Newell [facility] TEST, SERUM 2022-07-31 23:13:00 [facility] COMP. METABOLIC PANEL 2022-07-31 23:13:00 [facility] [place] [id number] CBC WITH DIFF 2022-07-31 23:13:00 Manju Newell [facility] CONSENT/REFUSAL FOR 2022-07-31 22:49:17 Doctor [facility]igned, No [facility] XR ANKLE 3+ VW RIGHT 2022-07-15 16:00:00 [facility] FOOT [facility]+ VW RIGHT 2022-07-15 16:00:00 Cari Kaur [facility] XR FOOT 3+ VW RIGHT 2022-07-15 16:00:00 [facility] PATIENT FINANCIAL 2022-07-15 15:25:53 Doctor Unassigned, No [facility] POLICY [facility] POCT MOLECULAR STREP 2022-06-23 16:06:00 Unknown, Attending [facility] ASSIGNMENT OF BENEFITS 2022-06-23 15:18:28 Doctor Unassigned, No [facility] acute hospital COMP. METABOLIC PANEL 2022-05-05 19:14:00 Karon Norton [facility] ([id number]) [facility] CBC WITH DIFF 2022-05-05 [facility]:14[facility] 2022-05-05 19:00:00 Karon Norton [facility] URINALYSIS 2022-05-05 18:58:[facility] WO 2022-04-26 15:11:00 Zion Bridges [facility] CONTRAST [facility] COMP. METABOLIC PANEL 2022-04-26 14:49:00 [facility] ([id number]) [facility] CBC WITH DIFF 2022-04-26 14:49:00 Zion Bridges [facility] URINALYSIS 2022-04-26 14:49:00 Zion Bridges [facility] POCT TEST 2022-04-26 14:45:00 Zion Bridges [facility] CONSENT/REFUSAL FOR 2022-04-26 14:22:29 Doctor Un[facility]igned, No [facility] POCT TEST 2022-04-26 01:22:00 Zion Bridges [facility] ASSIGNMENT OF BENEFITS 2022-04-26 00:54:02 Doctor Unassigned, No General acute hospital URINALYSIS 2022-04-26 00:45:00 Singer [place] o [facility] CONSENT/REFUSAL FOR 2022-04-26 00:16:47 Doctor Unassigned, No [facility] [place] [facility] Name [facility] [place] BASIC METABOLIC PANEL 2022-04-07 22:35:00 Olamide [facility] (NA, K, CL, CO2, Medical Branch GLUCOSE, BUN, CREATININE, CA) CBC WITH DIFF 2022-04-07 22:35:00 Olamide Garvin [facility] URINALYSIS 2022-04-07 21:36:00 Olamide Garvin [facility] URINE DRUG (IMMUNOASSAY) 2022-04-07 21:36:00 Olamide Garvin [facility] [place] - COMPREHENSIVE DRUG Medical [facility] SCREEN W/O REFLEX CONSENT/REFUSAL FOR 2022-04-07 19:29:15 Doctor Unassigned, No [facility] [place] [facility] Name [facility] POCT TEST 2022-03-24 14:07:00 Kellie Duncan [facility] CONSENT/REFUSAL FOR 2022-03-24 13:27:20 Doctor Unassigned, No [facility] [place] [facility] Name [facility] CT ABDOMEN PELVIS WO 2022-03-15 14:09:04 Anna Gould [facility] CONTRAST [facility] URINALYSIS 2022-03-15 13:53:00 Anna Gould [facility] POCT TEST 2022-03-15 13:52:[address] [facility] CONSENT/REFUSAL FOR 2022-03-15 13:37:02 Doctor Unassigned, No [facility] [place] [facility] Name [facility] POCT TEST 2022-03-11 14:59:00 Angelica Viveros [facility] FLU VACC ([id number]), 6 2022-02-27 13:34:55 Vijay Martinez [facility] MO-64 YRS, .5ML, IM, Medical [facility] QUAD (FLUCELVAX) NOTICE OF PRIVACY 2022-02-21 06:06:30 Doctor Unassigned, No Univ [facility] PRACTICES Name Medical Branch CONSENT/REFUSAL FOR 2022-02-21 06:03:41 Doctor Unassigned, No [facility] [place] [facility] Name [facility] XR ANKLE <3 VW RIGHT 2022 17:56:42 Maggie Hamilton [facility] CT ABDOMEN PELVIS W 2022 17:44:17 Maggie Hamilton [facility] CT TRAUMA CERVICAL SPINE 2022 17:43:49 Maggie Hamilton [facility] WO CONTRAST [facility] POCT TEST 2022 17:27:[address] [facility] COMP. METABOLIC PANEL 2022 17:17:00 Maggie Hamilton [facility] ([id number]) Medical Branch CBC WITH DIFF 2022 17:17:00 Maggie Hamilton [facility] CONSENT/REFUSAL FOR 2022 16:53:13 Doctor Unassigned, No Un [facility] DIAGNOSIS AND TREATMENT Name Medical Branch US GALL BLADDER 2022-01-18 12:31:09 Bernardo Levy [facility] US PELVIS COMPLETE WITH 2022-01-18 12:21:13 Melvin Zhao [facility] TRANSVAGINAL [facility] CT ABDOMEN PELVIS W 2022-01-18 11:20:50 Melvin Zhao [facility] CONTRAST [facility] POCT TEST 2022-01-18 10:57:00 Jayy Kennedy [facility] COVID-19 (ID NOW RAPID 2022-01-18 10:57:00 Jayy Kennedy [facility] TESTING) Medical Branch URINALYSIS 2022-01-18 10:47:00 Jayy Kennedy [facility] LIPASE 2022-01-18 10:29:00 Jayy Kennedy [facility] TEST, SERUM 2022-01-18 10:29:00 Jayy Kennedy [facility] HEPATIC FUNCTION PANEL 2022-01-18 10:29:00 Jayy Kennedy [facility] ([id number]) (ALB,T.PRO,BILI Medical Branch T,BU/BC,ALT,AST,ALK PHOS) BASIC METABOLIC PANEL 2022-01-18 10:29:00 Jayy Kennedy [facility] (NA, K, CL, CO2, Medical Branch GLUCOSE, BUN, CREATININE, CA) CBC WITH DIFF 2022-01-18 10:29:00 Jayy Kennedy [facility] CONSENT/REFUSAL FOR 2022-01-18 10:13:31 Doctor Unassigned, No [facility] [place] [facility] Name [facility] CT HEAD WO CONTRAST 2022-01-15 15:22:29 Danita [facility] TEST, SERUM 2022-01-15 14:36:00 Danita [facility] BASIC METABOLIC PANEL 2022-01-15 14:36:00 Danita [facility] (NA, K, CL, CO2, [facility] GLUCOSE, BUN, CREATININE, CA) CBC WITH DIFF 2022-01-15 14:36:00 Danita [facility] CONSENT/REFUSAL FOR 2022-01-15 13:28:12 Doctor Unassigned, No [facility] [place] [facility] XR CERVICAL SPINE 4 VW 2022-01-09 00:29:16 Gabriela [facility] XR LUMBAR SPINE 4 VW 2022-01-09 00:29:16 Gabriela [facility] XR SPINE THORACIC 3 VW 2022-01-09 00:29:16 Gabriela [facility] URINALYSIS 2022-01-08 23:50:00 Gabriela [facility] CONSENT/REFUSAL FOR 2022-01-08 22:51:08 Doctor Unassigned, No [facility] Name [facility] GALV ONLY - VAGINAL 2021-12-12 18:37:00 Prasanna Vargas [facility] PATHOGENS BY [facility] ACID TESTING URINE CULTURE 2021-12-12 18:32:00 Prasanna Vargas [facility] POCT TEST 2021-12-12 18:31:00 Prasanna Vargas [facility] POCT URINALYSIS W/O 2021-12-12 18:31:00 Prasanna Vargas [facility] Encounters Start End Encounter Admission Attending Care Care Encounter Source Date/Time Date/Time Type Type Clinicians Facility Department ID 2021-03-14 Emergency [facility] [id number] Univers 03:14:31 it[facility] 2021-03-13 Emergency [facility] [id number] Univers 20:05:20 ity of [facility] 2021-03-13 Emergency [facility] [id number] Univers 12:48:28 ity of [facility] 2021-03-13 Emergency [facility] [id number] Univers 02:43:51 ity of [facility] 2021-03-13 Emergency [facility] [id number] Univers 00:27:09 ity of [facility] 2021-03-12 Emergency [facility] [id number] Univers 22:10:36 ity of [facility] 2021-03-12 Emergency [facility] [id number] Univers 20:04:05 ity of [facility] 2021-03-12 Emergency [facility] [id number] Univers 15:25:05 ity of [facility] 2021-03-12 Emergency [facility] [id number] Univers 11:43:36 ity of [facility] 2021-03-12 Emergency [facility] [id number] Univers 07:41:37 ity of [facility] 2021-03-12 Emergency [facility] [id number] Univers 05:43:47 ity of [facility] 2021-03-12 Emergency [facility] [id number] Univers 03:43:41 ity of [facility] 2021-03-12 Emergency [facility] [id number] Univers 01:31:27 ity of [facility] 2021-03-12 Emergency X [facility] ERT [id number] Univers 00:56:44 ity of [facility] 2021-03-12 Emergency [facility] [id number] Univers 00:56:31 ity of [facility] 2021-03-11 Emergency [facility] [id number] Univers 17:47:02 ity of [facility] 2021-03-11 Emergency [facility] [id number] Univers 16:27:15 ity of [facility] 2021-03-11 Emergency [facility] [id number] Univers 12:00:58 ity of [facility] 2021-03-11 Emergency [facility] [id number] Univers 10:33:59 ity of [facility] 2021-03-11 Emergency [facility] [id number] Univers 01:36:52 ity of [facility] 2021-03-10 Emergency [facility] [id number] Univers 23:35:34 ity of [facility] 2021-03-10 Emergency [facility] [id number] Univers 19:06:16 ity of [facility] 2021-03-10 Emergency [facility] [id number] Univers 12:39:47 ity of [facility] 2021-03-10 Emergency [facility] [id number] Univers 06:54:04 ity of [facility] 2021-03-09 Outpatient P [facility] CHRIS [id number] Univers 13:25:44 ity of [facility] 2021-03-09 Outpatient P [facility] CH[facility] [id number] Univers 13:08:01 ity of [facility] 2021-03-09 Outpatient P [facility] [id number] Univers 12:37:25 ity of [facility] 2021-03-09 Outpatient P [facility] [id number] Univers 11:51:20 ity of [facility] 2022-11-21 2022-11-21 Emergency X OSIRIS [facility] ERT [id number] Univers 13:08:00 16:45:00 MANJU it y of [facility] 2022-11-21 2022-11-21 Emergency Zino Bridges [facility] 1.2.840. 114 [id number] Univers 13:08:00 16:45:00 Manju Newell 350.1.13. 10 ity [facility] 4.2.7.2.686 [facility] [id number] [facility] [address] 2022-11-18 2022-11-[address] [facility] [id number] Willis 10:08:00 10:08:00 0709 F Jeffery 2022-11-15 2022-11-15 Outpatient R JEREMY GREENE [facility] [id number] Univers 09:40:00 09:40:00 JEREMY GREENE [facility] 2022-11-09 2022-11-[address] [facility] [id number] Willis 15:26:18 15:26:18 0630 F Jeffery 2022-11-06 2022-11-06 Outpatient R JUAN [facility] [id number] Univers 13:00:00 13:00:00 VIJAY lechuga [facility] 2022-10-29 2022-10-29 [facility] 1.2.840.114 [id number] Univers 00:00:00 00:00:00 Secure Msg [facility] 350.1.13.10 ity of [place] 4.2.7.2.686 [place] as TOÑO?BLEA [id number] Va dical KNEY [address] [place] [facility] 2022-10-03 2022-10-03 Letter Gurjit Lim [facility] 1.2.840.114 [id number] Univers 00:00:00 00:00:00 (Out) HEALTH 350.1.13.10 it y of [place] 4.2.7.2.686 [place] TOÑO?BLEA [id number] [place] dical K[place] [address] [place] [facility] 2022-10-02 2022-10-02 Outpatient R SHARMIN [facility] [id number] Univers 10:00:00 10:00:00 , CELINA it y [facility] 2022-10-01 2022-10-01 Outpatient R ARJUN [facility] [id number] Univers 09:40:00 09:40:00 REJI fitzpatrick f [facility] 2022-09-25 2022-09-25 Telephone oPnce [facility] .2.434.692 [id number] Univers 00:00:00 00:00:00 Rad Cuello [place] 350.1.13.10 ity of [place] [id number] [place] dical NAL 059 [facility] 2022-09-21 2022-09-21 Outpatient R LEXY [facility] [id number] Univers 09:30:00 09:30:00 [facility]-09-21 2022-09-21 Letter [facility] 1.2.840.114 [id number] Univers 00:00:00 00:00:00 (Out) Kassandra HEALTH 350.1.13.10 it y of [place] 4.2.7.2.686 [place] TOÑO?BLEA [id number] [address] [facility] 2022-09-21 2022-09-21 Telephone [facility] 1.2.876.823 [id number] Univers 00:00:00 00:00:00 Kassandra HEALTH 350.1.13.10 it y of [place] 4.2.7.2.686 [place] TOÑO?BLEA [id number] [address] 2022-09-21 2022-09-21 Telephone [facility] 1.2.403.886 [id number] Univers 00:00:00 00:00:00 KassandraYeelion 350.1.13.10 it y of [place] 4.2.7.2.686 [place] TOÑO?BLEA [id number] Va [address]ess[address] 2022-09-14 2022-09-14 [facility] [id number] Univers 09:30:00 09:30:00 KASSANDRA [facility] 2022-09-12 2022-09-12 Telephone [facility] 1.2.384.148 [id number] Univers 00:00:00 00:00:00 KassandraStatus4 350.1.13.10 it y of [place] 4.2.7.2.686 [place] TOÑO?BLEA [id number] [address] [facility] 2022-09-07 2022-09-07 Outpatient [facility] [id number] Univers 11:30:00 11:30:00 KASSANDRA [facility] 2022-09-05 2022-09-05 Emergency X GUTIERREZ [facility] ERT [id number] Univers 08:44:00 13:15:00 CYNISE [facility] 2022-09-05 2022-09-05 Emergency Gutierrez, [facility] 1.2.344.093 [id number] Univers 08:44:00 13:15:00 Tammieleonid LULU 350.1.13.10 i ty of [place]2.7.2.[place] [id number] [place] 7[address] [place] 2022-09-04 2022-09-04 Telephone [facility] 1.2.265.577 [id number] Univers 00:00:00 00:00:00 Kassandra HEALTH 350.1.13.10 it y of [place] 4.2.7.2.686 [place] as TOÑO?BLEA [id number] [address] [facility] 2022-09-04 2022-09-04 Patient Serra, [facility] 1.2.840.114 [id number] Univers 00:00:00 00:00:00 Secure Msg Rad LAWSON 350.1.13.10 ity [facility] 4.2.7.2.686 [place] [facility] [id number] Va dical NAL 059 [facility] 2022-08-29 2022-08-29 Outpatient R SHARMIN [facility] [id number] Univers 09:00:00 09:00:00 , CELINA it y of [facility] 2022-08-14 2022-08-14 Patient Doctor [facility] 1.2.840.114 [id number] Univers 00:00:00 00:00:00 Secure Msg Unassigned, [facility] 350.1.13.10 ity of [place] 4.2.7.2.686 [place] TOÑO?BLEA [id number] [address] [facility] 2022-07-31 2022-07-31 Emergency X RIDDLE, [facility] ERT [id number] Univers 17:56:00 20:30:00 MANJU it y of [facility] 2022-07-31 2022-07-31 Emergency Simpson, [facility] 1.2.669.581 [id number] Univers 17:56:00 20:30:00 Manju LAWSON 350.1.13.10 ity [facility] 4.2.7.2.686 [place] [id number] [facility] [address] [place] 2022-07-15 2022-07-15 [facility] 1.2.840.114 [id number] Univers 09:46:45 23:59:00 Encounter [facility] 350.1.13.10 ity of [place] 4.2.7.2.686 [place] as TOÑO?BLEA [id number] [facility] [address] [place] [facility] 2022-07-15 2022-07-15 Outpatient R [facility] [id number] Univers 09:46:45 23:59:00 CARI ity o f [facility] 2022-07-15 2022-07-15 [facility] 1.2.840.114 [id number] Univers 09:46:45 23:59:00 Encounter [facility] 350.1.13.10 ity of [place] 4.2.7.2.686 [place] TOÑO?BLEA [id number] [facility] 808 [facility] 2022-07-15 2022-07-15 Urgent NatashaCari draper [facility] 1.2.840 .114 [id number] Univers 09:20:00 10:29:17 Care Unknown, Attending [facility] 350.1.13.10 ity of [place] 4.2.7.2.686 [place] TOÑO?BLEA [id number] [facility] 370 [facility] 2022-07-15 2022-07-15 Orders Doctor JORDAN 1.2.840.114 [id number] Univers 00:00:00 00:00:00 Only Unassigned, YAZMIN 350.1.13.10 ity of [place] [facility] 4.2.7.2.686 [place] as [id number] [facility] [address] 2022-06-23 2022-06-23 Outpatient R DANITA [facility] [id number] Univers 09:20:00 10:27:39 OMAYEMI ity of [facility] 2022-06-23 2022-06-23 Urgent Paul Samayoa [facility] 1.2.840. 114 [id number] Univers 09:20:00 10:27:39 Care Unknown, Attending HEALTH 350.1.13.10 ity of [place] 4.2.7.2.686 [place] as TOÑO?BLEA [id number] Va whit [address] MEDICAL OFFICE BUILDING 2022-06-23 2022-06-23 Orders Doctor JORDAN 1.2.840.114 [id number] Univers 00:00:00 00:00:00 Only Unassigned, YAZMIN 350.1.13.10 ity of [facility] 4.2.7.2.686 [place] as [id number] [facility] [address] [place] 2022-06-15 2022-06-15 Outpatient R JC [facility] [id number] Univers 09:40:00 09:40:00 JEREMY [facility] 2022-05-29 2022-05-29 Outpatient Farzana [facility] [id number] Univers 08:00:00 08:00:00 [facility] 2022-[facility]-15 2022-05-15 Outpatient R ANGELA [facility] [id number] Univers 09:20:00 09:20:00 BENNETT [facility] 2022-05-11 2022-05-11 Outpatient Farzana [facility] [id number] Univers 09:30:00 09:30:00 [facility] 2022-05-05 2022-05-05 Emergency X NORTON, [facility] ERT [id number] Univers 12:26:00 16:11:00 KARON [facility] 2022-05-05 2022-05-[address] [facility] 1.2.840.114 [id number] Univers 12:26:00 16:11:00 Karon LAWSON 350.1.13.10 i ty of [place] 4.2.7.2.686 [place] [id number] [facility] [address] [place] 2022-05-01 2022-05-01 Outpatient R PRASANNA VARGAS [facility] [id number] Univers 00:00:00 00:00:00 [facility] 2022-04-26 2022-04-26 Emergency X [facility] ERT [id number] Univers 08:30:00 09:59:00 ZION lechuga [facility] 2022-04-26 2022-04-26 Emergency [facility] 1.2.161.177 [id number] Univers 08:30:00 09:59:00 Zion LAWSON 350.1.13.10 i ty of [place] 4.2.7.2.686 [facility] [id number] [address] 2022-04-25 2022-04-25 Emergency [facility] E[facility] [id number] Univers 18:23:00 21:55:00 KENNEDY lechuga [facility] 2022-04-25 2022-04-25 [facility] 1.2.975.713 [id number] Univers 18:23:00 21:55:00 Kennedy LAWSON 350.1.13.10 i ty of [place] [address].2.7.2.686 [facility] [id number] [address] 2022-04-19 2022-04-19 Outpatient [facility] [id number] Univers 10:00:00 10:00:00 JEREMY ity [facility] 2022-04-12 2022-04-12 Telephone [facility] 1.2.125.556 [id number] Univers 00:00:00 00:00:00 KassandraStatus4 350.1.13.10 it y of [place] 4.2.7.2.686 [place] as TOÑO?BLEA [id number] [address] 2022-04-11 2022-04-11 Telephone [facility] 1.2.840.114 [id number] Univers 00:00:00 00:00:00 [facility] 350.1.13.10 ity of [place] 4.2.7.2.686 [place] as TOÑO?BLEA [id number] [address] 2022-04-10 2022-04-10 Telephone [facility] 1.2.999.710 [id number] Univers 00:00:00 00:00:00 [employer] 350.1.13.10 it y of [facility] 4.2.7.2.686 [place] as TOÑO?BLEA [id number] [address] [facility] 2022-04-09 2022-04-09 Office [facility] 1.2.840.114 [id number] Univers 09:30:00 09:30:00 Visit [employer] 350.1.13.10 it y of [facility] 4.2.7.2.686 [place] as TOÑO?BLEA [id number] [address] [facility] 2022-04-09 2022-04-09 Outpatient R LEXY [facility] [id number] Univers 09:30:00 09:21:44 KASSANDRA [facility] 2022-04-07 2022-04-07 Emergency X [facility] ERT [id number] Univers 13:41:00 17:49:00 [facility] 2022-04-07 2022-04-07 Emergency [facility] 1.2.464.322 [id number] Univers 13:41:00 17:49:00 Olamide Mosqueda [facility] 350.1.13.10 ity of [place] 4.2.7.2.686 [place] [facility] [id number] [address] 2022-04-04 2022-04-04 Telephone [facility] 1.2.487.118 [id number] Univers 00:00:00 00:00:00 [employer] 350.1.13.10 it y of [facility] 4.2.7.2.686 [place] as TOÑO?BLEA [id number] [address] [facility] 2022-04-02 2022-04-02 Outpatient R LEXY [facility] [id number] Univers 10:30:00 10:30:00 KASSANDRA chino [facility] 2022-03-28 2022-03-28 Patient Doctor [facility] 1.2.840.114 [id number] Univers 00:00:00 00:00:00 Secure Msg Unassigned, HEALTH 350.1.13.10 ity of [place] 4.2.7.2.686 [place] as TOÑO?BLEA [id number] [address] 2022-03-24 2022-03-24 Emergency X PERLA, [facility] ERT [id number] Univers 07:35:00 13:11:00 KELLIE ity of [facility] 2022-03-24 2022-03-24 Emergency Perla, [facility] 1.2.914.012 [id number] Univers 07:35:00 13:11:00 Kellie Xavier L[place] 350.1.13.10 ity of [place] 4.2.7.2.686 [place] [id number] [address] 2022-03-23 2022-03-23 Outpatient [facility] [id number] Univers 10:30:00 10:30:00 KASSANDRA ity of [facility] 2022-03-23 2022-03-23 Telephone [facility] 1.2.840.114 [id number] Univers 00:00:00 00:00:00 [facility] 350.1.13.10 ity of [place] 4.2.7.2.686 [place] as TOÑO?BLEA [id number] [address] 2022-03-22 2022-03-22 Telephone [facility] 1.2.840.114 [id number] Univers 00:00:00 00:00:00 [facility] 350.1.13.10 ity of [facility] 4.2.7.2.686 [place] as TOÑO?BLEA [id number] [address] 2022-03-22 2022-03-22 Refill [facility] 1.2.840.114 [id number] Univers 00:00:00 00:00:00 [facility] 350.1.13.10 ity of [place] 4.2.7.2.686 [place] as TOÑO?BLEA [id number] [address] 2022-03-21 2022-03-21 Telephone [facility] 1.2.840.114 [id number] Univers 00:00:00 00:00:00 [facility] 350.1.13.10 ity of [facility] 4.2.7.2.686 [place] as TOÑO?BLEA [id number] [place] whit [place] 092 [facility] 2022-03-15 2022-03-15 Outpatient R ARJUN [facility] [id number] Univers 14:00:00 14:36:19 BINPEARL ity o f [facility] 2022-03-15 2022-03-15 Office [facility] 1.2.840.114 [id number] Univers 14:00:00 14:36:19 Visit Reji LAWSON 350.1.13.10 ity of [facility] [place].2.[place].2.[place] [id number] Va whit TORRES 059 [facility] 2022-03-15 2022-03-15 Emergency X BRYANNA [facility] ERT [id number] Univers 08:40:00 10:47:00 [facility] 2022-03-15 2022-03-15 Emergency Bry[facility]UN[facility] 1.2.840.114 [id number] Univers 08:40:00 10:47:00 Anna LAWSON 350.1.13.10 i ty of [facility] 4.2.7.2.686 [place] [id number] [address] 2022-03-14 2022-03-14 Outpatient R PRASANNA VARGAS [facility] [id number] Univers 10:30:00 10:30:00 ity of [facility] 2022-03-11 2022-03-11 Emergency X FELICE [facility] ERT [id number] Univers 09:22:00 12:15:00 SHINTA ity [facility] 2022-03-11 2022-03-11 Emergency FeliceUN[facility] 1.2.840.114 [id number] Univers 09:22:00 12:15:00 Angelica [facility] 350.1.13.10 i ty of [facility] [place] 4.2.7.2.[place] [id number] [address] 2022-03-06 2022-03-06 Outpatient R LEXY [facility] [id number] Univers 08:30:00 08:30:00 KASSANDRA lechuga [facility] 2022-03-02 2022-03-02 Telephone Yoselin [facility] 1.2.840.114 [id number] Univers 00:00:00 00:00:00 [facility] 350.1.13.10 ity of [place] 4.2.7.2.686 [place] TOÑO?BLEA [id number] [address] [facility] 2022-02-27 2022-02-27 Outpatient Farzana LEXY [facility] [id number] Univers 09:30:00 09:49:42 KASSANDRA lechuga [facility] 2022-02-27 2022-02-27 Office [facility] 1.2.840.114 [id number] Univers 09:30:00 09:49:42 Visit Kassandra Mbaobao 350.1.13.10 it y of [place] 4.2.7.2.686 [place] as TOÑO?BLEA [id number] [address] [facility] 2022-02-27 2022-02-27 Office [facility]UN[facility] 1.2.840.114 [id number] Univers 08:00:00 09:12:17 Visit [facility] 350.1.13.10 it y of [place] 4.2.7.2.686 [place] TOÑO?BLEA [id number] [address] [facility] 2022-02-26 2022-02-26 Outpatient Farzana PUGH [facility] [id number] Univers 11:30:00 11:30:00 KASSANDRA lechuga [facility] 2022-02-21 2022-02-21 Emergency X ALFONSO [facility] ERT [id number] Univers 01:20:00 03:44:00 MAGGIE lechuga [facility] 2022-02-21 2022-02-21 Emergency Al[facility]UN[facility] 1.2.840.114 [id number] Univers 01:20:00 03:44:00 Maggie LAWSON 350.1.13.10 ity of [place] 4.2.7.2.686 [facility] [id number] [place] 7[address] [place] 2022-02-19 2022-02-19 Patient Robb [facility] 1.2.840.114 [id number] Univers 00:00:00 00:00:00 Secure Msg Kendal Amaral HEALTH 350.1.13.10 ity of [place] 4.2.7.2.686 [place] as TOÑO?BLEA [id number] [address] [facility] 2022-02-19 2022-02-19 Patient [facility] 1.2.840.114 [id number] Univers 00:00:00 00:00:00 Secure Msg Kendal Amaral HEALTH 350.1.13.10 ity of [facility] 4.2.7.2.686 [place] as TOÑO?BLEA [id number] [address] 2022-02-19 2022-02-19 Patient Suzette [facility] 1.2.030.688 [id number] Univers 00:00:00 00:00:00 Secure Msg Ade SAM 350.1.13.10 ity of [facility] 4.[place].7.2.[place] [id number] [facility] [address] [place] 2022 2022 Emergency X [facility]ONSOUNM [facility] ERT [id number] Univers 11:58:00 15:13:00 MAGGIE [facility] 2022 2022 Emergency AlfonsoUNM [facility] 1.2.840.114 [id number] Univers 11:58:00 15:13:00 Maggie LAWSON 350.1.13.10 ity of [place] 4.2.7.2.686 [facility] [id number] [address] 2022-02-09 2022-02-09 Outpatient R BRANDON [facility] [id number] Univers 09:00:00 09:00:00 CRICKET davis [facility] 2022-02-06 2022-02-06 Outpatient R JUAN [facility] [id number] Univers 10:00:00 10:00:00 VIJAY lechuga [facility] 2022-02-05 2022-02-05 Nurse Nurse, F[facility] 1.2.840.114 [id number] Univers 09:45:00 10:05:00 Visit Ramsey [facility] 350.1.13.10 ity of [place] 4.2.7.2.686 [place] TOÑO?BLEA [id number] Va dical KNEY [address] [place] MEDICAL OFFICE BUILDING 2022-02-05 2022-02-05 Outpatient R OLIVER [facility] [id number] Univers 09:20:00 09:20:00 FLACO lechuga o f [facility] 2022-01-26 2022-01-26 Case Prasanna Vargas [facility] 1.2.819.440 [id number] Univers 00:00:00 00:00:00 Management Cam L[place] 350.1.13.10 ity of [facility] [place] 4.2.[place].2.[place] [id number] Va dical [facility] 134 [facility] 2022-01-22 2022-01-22 Outpatient R JUAN [facility] [id number] Univers 11:00:00 11:00:00 VIJAY lechuga [facility] 2022-01-18 2022-01-18 Emergency X GARDENIA [facility] ERT [id number] Univers 05:17:00 10:25:00 BERNARDO lechuga [facility] 2022-01-18 2022-01-18 Emergency KennedyJayy W TRAU[place] 1.2.840.11 [id number] Univers 05:17:00 10:25:00 Bernardo Levy [facility] 350.1.13.10 it[place] [id number] [address] 2022-01-15 2022-01-15 Emergency X DANITA [facility] ERT [id number] Univers 08:34:00 10:49:00 MAURA lechuga [facility] 2022-01-15 2022-01-15 Emergency Larry Perez R [facility] 1.2.840.1 14 [id number] Univers 08:34:00 10:49:00 Maura Samayoa [id number] [facility] [id number] [facility] [id number] [facility] [address] [place] 2022-01-08 2022-01-08 Emergency X GABRIELA, [facility] ERT [id number] Univers 18:04:00 20:09:00 HUMBERTO ity [facility] 2022-01-08 2022-01-08 [facility] 1.2.840.114 [id number] Univers 18:04:00 20:09:00 Humberto LAWSON [id number] i ty [facility] [id number] [facility] [id number] [address] 2021-12-12 2021-12-12 Outpatient Farzana CARNES [facility] [id number] Univers 13:30:00 [facility]:40:[facility]12-12 2021-12-12 Office Prasanna Vargas [facility] 1.2.840.114 [id number] Univers 13:30:00 13:40:21 [id number] PROFESSIO [id number] [place] [address] 2021-12-12 2021-12-12 Outpatient Farzana CARNES [facility] [id number] Univers 13:30:00 13:40:[facility] 2021-12-12 2021-12-12 Outpatient Farzana CARNES [facility] [id number] Univers 13:30:00 13:40:21 [facility] 2021-12-11 2021-12-11 Outpatient R SUZETTE [facility] [id number] Univers 16:15:00 16:15:00 ADE [facility] 2021-12-05 2021-12-05 Outpatient R LYSSA [facility] [id number] Univers 14:15:00 14:15:00 ROMULO [facility] 2021-11-28 2021-11-28 Emergency X NORTON, [facility] ERT [id number] Univers 08:49:00 11:02:00 KARON ity of [facility] 2021-11-28 2021-11-28 [facility] 1.2.840.114 [id number] Univers 08:49:00 11:02:00 Karon [place] [id number] i ty of [place] [id number] [facility] [id number] [address] 2021-11-24 2021-11-24 Emergency X EDV, K [facility] ERT [id number] Univers 18:14:00 21:04:00 ity of [facility] 2021-11-24 2021-11-24 Emergency Dev [facility] 1.2.840.114 [id number] Univers 18:14:00 21:04:00 Sharlene [place] [id number] i ty of [place] [id number] [facility] [phone] [address] 2021-11-24 2021-11-24 [facility]phone [facility] 1.2.840.114 [id number] Univers 00:00:00 00:00:00 Cricket Lopez CORPORATE DIRECTOR 350.1.13.10 ity [facility] 4.2.7.2.686 Martin as MATERNAL [phone] [facility] ical & CHILD [address] [place] [address] 2021-11-20 2021-11-20 Patient [facility] 1.2.840.114 [id number] Univers 00:00:00 00:00:00 Secure [facility] 350.1.13.[address] [facility] 4.2.7.2.686 Martin as TOÑO?BLEA [phone] [address] MEDICAL OFFICE BUILDING 2021-11-19 2021-11-19 Letter JORDAN Santacruz 1.2.840.114 [id number] Univers 00:00:00 00:00:00 (Out) Leslie ARCE 350.1.13.10 it y of [facility] 4.2.7.2.686 Martin as [id number] [address] 2021-11-18 2021-11-18 Outpatient [facility] [id number] Univers 10:41:40 23:59:00 FLACO lechuga o f [facility] 2021-11-18 2021-11-18 Hospital [facility] 1.2.577.752 [id number] Univers 10:41:40 23:59:00 Encounter [facility] 350.1.13.10 ity of [place] 4.2.7.2.686 Martin as TOÑO?BLEA [phone] Me dical MIKI [address] [place] [facility] 2021-11-18 2021-11-18 Urgent [facility] 1.2.840.114 [id number] Univers 10:20:00 10:53:20 Care [facility] 350.1.13.10 i ty of [place] 4.2.7.2.686 Martin as TOÑO?BLEA [id number] [place] dicaliyah [place] 370 [facility] 2021-11-09 2021-11-09 Outpatient R APURVA [facility] [id number] Univers 10:30:00 10:30:00 CELINA lechuga [facility] 2021-10-25 2021-10-25 Urgent Ileana Medrano [facility] ..840.114 [id number] Univers 13:20:00 13:20:00 Care Oliver [facility] 350.1.13.10 ity of [place] 4.2.7.2.686 Martin as TOÑO?BLEA [phone] Va whit [place] 370 [facility] 2021-10-25 2021-10-25 Outpatient R HARDEEP [facility] [id number] Univers 13:20:00 12:47:59 ILEANA lechuga [facility] 2021-10-25 2021-10-25 Patient Juan [facility] 1.2.840.114 [id number] Univers 00:00:00 00:00:00 Secure [facility] 350.1.13.10 ity of [place] 4.2.7.2.686 Martin as TOÑO?BLEA [phone] [place] dicaliyah [place] 044 [facility] 2021-10-25 2021-10-25 Telephone Cotta, [facility] 1.2.609.924 [id number] Univers 00:00:00 00:00:00 Vijay HEALTH 350.1.13.10 it y of [place] 4.2.7.2.686 Martin as TOÑO?BLEA [phone] Va whit [place] 044 [facility] 2021-10-25 2021-10-25 Telephone Provider, [facility] 1.2.840.114 [id number] Univers 00:00:00 00:00:00 Ang Db HEALTH 350.1.13.10 it y of Urgent Care [place] 4.2.7.2.686 [place] TOÑO?BLEA [phone] [facility] 370 [facility] 2021-10-25 2021-10-25 Telephone Nurse, [facility] 1.2.840.114 [id number] Univers 00:00:00 00:00:00 Db Urgent HEALTH 350.1.13.10 ity of Care [place] 4.2.7.2.686 Martin as TOÑO?BLEA [phone] [address] 2021-10-24 2021-10-24 Outpatient Farzana OMALLEY [facility] [id number] Univers 10:15:00 10:15:00 [facility] 2021-10-24 2021-10-24 Outpatient Farzana OMALLEY [facility] [id number] Univers 10:15:00 10:15:00 ROMULO [facility] 2021-10-11 2021-10-11 Outpatient Farzana OMALLEY [facility] [id number] Univers 09:30:00 09:30:00 ROMULO [facility] 2021-10-10 2021-10-10 Outpatient PRASANNA LOOMIS [facility] [id number] Univers 13:30:00 13:30:00 [facility] 2021-10-10 2021-10-10 Outpatient Farzana VARGAS PRASANNA [facility] [id number] Univers 13:30:00 13:30:00 [facility] 2021-10-10 2021-10-10 Outpatient Farzana VARGAS PRASANNA [facility] [id number] Univers 13:30:00 13:30:00 ity of [facility] 2021-10-10 2021-10-10 Outpatient R ALICIA [facility] [id number] Univers 13:30:00 13:30:00 ity of [facility] 2021-10-10 2021-10-10 Outpatient [facility] [id number] Univers 13:30:00 13:30:00 ity of [facility] 2021-10-10 2021-10-10 Outpatient R ALICIA [facility] [id number] Univers 13:30:00 13:30:00 ity of [facility] 2021-10-10 2021-10-10 Outpatient R ALICIA [facility] [id number] Univers 13:30:00 13:30:00 ity of [facility] 2021-10-05 2021-10-05 Patient Zamudio [facility] 1.2.840.114 [id number] Univers 00:00:00 00:00:00 Secure Msg Kendal Munir HEALTH 350.1.13.10 ity of [place] 4.2.7.2.686 Martin as TOÑO?BLEA [phone] [address] [facility] 2021-10-05 2021-10-05 Patient Robb [facility] 1.2.840.114 [id number] Univers 00:00:00 00:00:00 Secure Msg Kendal Amaral HEALTH 350.1.13.10 ity of [place] 4.2.7.2.686 [place] as TOÑO?BLEA [id number] [address] [facility] 2021-10-04 2021-10-04 Pre Visit HILARIO Rodriguez 1.2.333.603 [id number] Univers 00:00:00 00:00:00 Outreach Melia TELLO 350.1.13.10 ity of [place].2.[place] [phone] [address] 2021-09-28 2021-09-28 Office Apurva [facility] 1.2.840.114 [id number] Univers 13:30:00 13:45:00 Visit Celina SAM [facility].1.13.10 [facility] 4.2.7.2.686 [place] [id number] [address] 2021-09-28 2021-09-28 Outpatient [facility] [id number] Univers 13:30:00 13:30:00 CELINA [facility] 2021-09-28 2021-09-28 Outpatient R [facility] [id number] Univers 13:30:00 13:30:00 [facility] 2021-09-28 2021-09-28 Patient [facility] 1.2.840.114 [id number] Univers 00:00:00 00:00:00 Secure Msg Celina Cannon FLACO 350.1.13.10 [facility] 4.2.7.2.686 [place] [phone] [address] 2021-09-27 2021-09-27 Outpatient R DEYVI, [facility] [id number] Univers 14:00:00 14:00:00 TETO [facility] 2021-09-27 2021-09-27 Outpatient [facility] [id number] Univers 09:30:00 09:30:00 [facility] 2021-09-27 2021-09-27 Outpatient [facility] [id number] Univers 09:30:00 09:30:00 [facility] 2021-09-27 2021-09-27 Outpatient R ADITI, [facility] [id number] Univers 09:30:00 09:30:00 [facility] 2021-09-26 2021-09-26 Outpatient R AKINSIPE, [facility] [id number] Univers 10:45:00 10:45:00 CRICKET ity o f [facility] 2021-09-26 2021-09-26 Outpatient R AKINSIPE, [facility] [id number] Univers 10:45:00 10:45:00 CRICKET ity o f [facility] 2021-09-26 2021-09-26 Patient Juan [facility] 1.2.840.114 [id number] Univers 00:00:00 00:00:00 Secure [facility] 350.1.13.10 ity of [place] 4.2.7.2.686 Martin as TOÑO?BLEA [phone] Va whit [facility] [address] [place] [facility] 2021-09-26 2021-09-26 Patient Juan [facility] 1.2.840.114 [id number] Univers 00:00:00 00:00:00 Secure [facility] 350.1.13.10 ity of [place] 4.2.7.2.686 [place] as TOÑO?BLEA [phone] [address] 2021-09-25 2021-09-25 Urgent Oliver Flaco [facility] 1.2.840. 114 [id number] Univers 10:20:00 11:10:[address] [facility] 350.1.13.10 ity of [place] 4.2.7.2.686 [place] as TOÑO?BLEA [phone] [address] [facility] 2021-09-25 2021-09-25 Outpatient R OLIVER [facility] [id number] Univers 10:20:00 11:10:[address] [facility] 2021-09-25 2021-09-25 Outpatient R OLIVER [facility] [id number] Univers 10:20:00 10:20:[address] [facility] 2021-09-25 2021-09-25 Outpatient R ALICIA PRASANNA [facility] [id number] Univers 10:00:00 10:00:00 ity of [facility] 2021-09-25 2021-09-25 Telephone [facility] 1.2.840.114 [id number] Univers 00:00:00 00:00:00 [facility] 350.1.13.10 i ty of [place] 4.2.7.2.686 Martin as TOÑO?BLEA [phone] [address] [facility] 2021-09-25 2021-09-25 Patient Prasanna Vargas [facility] 1.2.375.952 [id number] Univers 00:00:00 00:00:00 Secure Msg Cam [place] 350.1.13.10 ity of [place].2.7.2.686 [place] [phone] [facility] 134 [facility] 2021-09-25 2021-09-25 Telephone Sushmagracie [facility] 1.2.840.114 [id number] Univers 00:00:00 00:00:00 Cricket Lopez CORPORATE DIRECTOR 350.1.13.10 ity of [facility] 4.2.7.2.686 Martin as MATERNAL [phone] Med ical & CHILD 107 [facility] 2021-09-25 2021-09-25 Telephone Apurva [facility] 1.2.014.257 [id number] Univers 00:00:00 00:00:00 Celina SAM 350.1.13.10 ity of [facility] 4.2.7.2.686 [place] [phone] [address] 2021-09-15 2021-09-15 Patient Robb [facility] 1.2.840.114 [id number] Univers 00:00:00 00:00:00 Secure Msg Kendal Munir HEALTH 350.1.13.10 ity of [place] 4.2.7.2.686 [place] as TOÑO?BLEA [phone] [facility] 044 [facility] 2021-09-15 2021-09-15 Patient Robb [facility] 1.2.840.114 [id number] Univers 00:00:00 00:00:00 Secure Msg Kendal Munir HEALTH 350.1.13.10 ity of [place] 4.2.7.2.686 Martin as TOÑO?BLEA [id number] [facility] 044 [facility] 2021-09-15 2021-09-15 Patient Robb [facility] 1.2.840.114 [id number] Univers 00:00:00 00:00:00 Secure Msg Kendal Munir HEALTH 350.1.13.10 ity of [facility] 4.2.7.2.686 [place] as TOÑO?BLEA [phone] [place] whit [place] [address] [place] [address] [facility] 2021-09-14 2021-09-14 Patient Juan [facility] 1.2.840.114 [id number] Univers 00:00:00 00:00:00 Secure Msg Vijay HEALTH 350.1.13.10 ity of [place] 4.2.7.2.686 Martin as TOÑO?BLEA [phone] [address] [facility] 2021-09-12 2021-09-12 Outpatient Farzana MIXON [facility] [id number] Univers 10:30:00 10:30:00 CELINA lechuga [facility] 2021-09-12 2021-09-12 Outpatient Farzana MIXON [facility] [id number] Univers 10:30:00 10:30:00 CELINA chino [facility] 2021-09-12 2021-09-12 Patient Meet [facility] 1.2.840.114 [id number] Univers 00:00:00 00:00:00 Secure Msg Daniel MULTISCHANTAL 350.1.13.10 ity of [place].2.686 [place] [phone] [facility] AND DAILEY [address] [facility] 2021-09-12 2021-09-12 Orders Doctor JORDAN 1.2.840.114 [id number] Univers 00:00:00 00:00:00 Only Unassigned, YAZMIN 350.1.13.10 ity of [place] [facility] 4.2.7.2.686 Martin as [phone] [facility] [address] 2021-09-12 2021-09-12 Patient Juan [facility] 1.2.840.114 [id number] Univers 00:00:00 00:00:00 Secure Msg Vijay HEALTH 350.1.13.10 ity of [place] 4.2.7.2.686 Martin as TOÑO?BLEA [phone] Va whit [address] [facility] 2021-09-05 2021-09-05 Patient Juan [facility] 1.2.840.114 [id number] Univers 00:00:00 00:00:00 Secure Msg Vijay HEALTH 350.1.13.10 ity of [place] 4.2.7.2.686 Martin as TOÑO?BLEA [phone] [place] dicaliyah [place] [address] [place] [facility] 2021-09-04 2021-09-04 Patient Juan [facility] 1.2.840.114 [id number] Univers 00:00:00 00:00:00 Secure Msg Vijay HEALTH 350.1.13.10 ity of [place] 4.2.7.2.686 Martin as TOÑO?BLEA [phone] Va whit [place] [address] [place] [facility] 2021-08-25 2021-08-25 Telephone Aditi [facility] 1.2.840.114 [id number] Univers 00:00:00 00:00:00 Dania L HEALTH 350.1.13.10 it y of [place] 4.2.7.2.686 [place] as TOÑO?BLEA [phone] [place] whit [place] 198 [facility] 2021-08-25 2021-08-25 Patient Juan [facility] 1.2.840.114 [id number] Univers 00:00:00 00:00:00 Secure Msg Vijay HEALTH 350.1.13.10 ity of [place] 4.2.7.2.686 Martin as TOÑO?BLEA [phone] Va whit [place] [address] [place] [address] [facility] 2021-08-24 2021-08-24 Telephone Juan [facility] 1.2.909.832 [id number] Univers 00:00:00 00:00:00 Vijay HEALTH 350.1.13.10 it y of [place] 4.2.7.2.686 [place] as TOÑO?BLEA [phone] [place] dicaliyah [place] 044 [facility] 2021-08-24 2021-08-24 Patient Juan [facility] 1.2.840.114 [id number] Univers 00:00:00 00:00:00 Secure Msg Vijay HEALTH 350.1.13.10 ity of [place] 4.2.7.2.686 Martin as TOÑO?BLEA [id number] Va dical MIKI [address] [place] [address] [facility] 2021-08-23 2021-08-23 Patient [facility] 1.2.840.114 [id number] Univers 00:00:00 00:00:00 Secure Msg Vijay HEALTH 350.1.13.10 ity of [place] 4.2.7.2.686 Martin as TOÑO?BLEA [phone] Va whit [place] [address] [place] [address] [facility] 2021-08-23 2021-08-23 Telephone [facility] 1.2.417.469 [id number] Univers 00:00:00 00:00:00 Vijay HEALTH 350.1.13.10 it y of [place] 4.2.7.2.686 Martin as TOÑO?BLEA [phone] Va whit [address] 2021-08-22 2021-08-22 Telephone [facility] 1.2.243.185 [id number] Univers 00:00:00 00:00:00 Vijay HEALTH 350.1.13.10 it y of [place] 4.2.7.2.686 Martin as TOÑO?BLEA [id number] Va whit [address] [facility] 2021-08-22 2021-08-22 Patient Jaja [facility] 1.2.840.114 [id number] Univers 00:00:00 00:00:00 Secure Msg Hallie HEALTH 350.1.13.10 ity of [place] 4.2.7.2.686 Martin as TOÑO?BLEA [phone] Va whit [address] [facility] 2021-08-18 2021-08-18 Telephone [facility] 1.2.900.790 [id number] Univers 00:00:00 00:00:00 Vijay HEALTH 350.1.13.10 it y of [place] 4.2.7.2.686 Martin as TOÑO?BLEA [id number] [address] [facility] 2021-08-17 2021-08-17 Outpatient Farzana MIXON [facility] [id number] Univers 09:00:00 09:00:00 CELINA lechuga of [facility] 2021-08-17 2021-08-17 Outpatient Farzana MIXON [facility] [id number] Univers 09:00:00 09:00:00 CELINA itchino [facility] 2021-08-16 2021-08-16 Patient Juan [facility] 1.2.840.114 [id number] Univers 00:00:00 00:00:00 Secure Msg Vijay Mbaobao 350.1.13.10 ity of [place] 4.2.7.2.686 Martin as TOÑO?BLEA [phone] Va alessandraaliyah MIKI 044 [facility] 2021-08-15 2021-08-15 Office [facility] 1.2.840.114 [id number] Univers 15:30:00 16:16:42 Visit [facility] 350.1.13.10 it y of [place] 4.2.7.2.686 [place] as TOÑO?BLEA [id number] Va alessandraaliyah IVÁNMARY 198 [facility] 2021-08-15 2021-08-15 Outpatient [facility] [id number] Univers 15:30:00 16:16:42 [facility] 2021-08-15 2021-08-15 Outpatient Farzana KIM [facility] [id number] Univers 15:30:00 15:30:00 [facility] 2021-08-15 2021-08-15 Outpatient Farzana KIM [facility] [id number] Univers 15:30:00 15:30:00 [facility] 2021-08-15 2021-08-15 Outpatient Farzana [facility] [id number] Univers 15:30:00 15:30:00 [facility] 2021-08-15 2021-08-15 Emergency X DANITA [facility] ERT [id number] Univers 09:27:00 12:26:00 MAURA lechuga [facility] 2021-08-15 2021-08-15 Emergency Danita [facility] 1.2.467.085 [id number] Univers 09:27:00 12:26:00 Maura LAWSON 350.1.13.10 ity of [place] 4.2.7.2.686 [place] [facility] [phone] [address] 2021-08-15 2021-08-15 Emergency X DANITA, [facility] ERT [id number] Univers 09:27:00 12:26:00 MAURA lechuga [facility] 2021-08-14 2021-08-14 Outpatient R JUNA [facility] [id number] Univers 13:25:00 23:59:00 VIJAY lechuga [facility] 2021-08-14 2021-08-14 Outpatient R JUAN [facility] [id number] Univers 13:25:00 23:59:00 VIJAY lechuga [facility] 2021-08-14 2021-08-14 Outpatient R JUAN [facility] [id number] Univers 13:25:00 13:25:00 VIJAY lechuga [facility] 2021-08-14 2021-08-14 Outpatient R JUAN [facility] [id number] Univers 12:19:07 13:24:00 VIJAY lechuga [facility] 2021-08-14 2021-08-14 Outpatient R JUAN [facility] [id number] Univers 12:19:07 13:24:00 VIJAY lechuga [facility] 2021-08-14 2021-08-14 [employer] Bever[employer] Check[employer] Lab, Ang - Db [facility] 1.2.840.1 14 [id number] Univers 12:30:00 13:01:24 Visit Vijay Martinez 350.1.13.10 ity of [facility] 4.2.7.2.686 [place] as TOÑO?BLEA [phone] [address] [facility] 2021-08-14 2021-08-14 Food And Beverage Checker Lab, Ang - Db [facility] 1.2.840.1 14 [id number] Univers 12:30:00 12:45:00 Visit Vijay Martinez 350.1.13.10 ity of [place] 4.2.7.2.686 Martin as TOÑO?BLEA [id number] [address] [facility] 2021-08-14 2021-08-14 Office [facility] 1.2.840.114 [id number] Univers 11:30:00 12:31:12 Visit Vijay HEALTH 350.1.13.10 it y of [facility] 4.2.7.2.686 Martin as TOÑO?BLEA [phone] Me whit [place] 044 [facility] 2021-08-14 2021-08-14 Outpatient R JUAN [facility] [id number] Univers 11:30:00 12:31:12 VIJAY lechuga [facility] 2021-08-14 2021-08-14 Patient [facility] 1.2.840.114 [id number] Univers 00:00:00 00:00:00 Secure Msg Vijay HEALTH 350.1.13.10 ity of [place] 4.2.7.2.686 Martin as TOÑO?BLEA [id number] Va whit [place] [address] [place] [address] [facility] 2021-08-09 2021-08-09 Outpatient R [facility] [id number] Univers 14:45:00 14:45:00 ADÁN itchino [facility] 2021-08-09 2021-08-09 Telephone [facility] 1.2.479.951 [id number] Univers 00:00:00 00:00:00 Vijay HEALTH 350.1.13.10 it y of [facility] 4.2.7.2.686 Martin as TOÑO?BLEA [phone] Va whit [place] 044 [facility] 2021-08-08 2021-08-08 Outpatient [facility] [id number] Univers 11:30:00 23:59:00 VIJAY ankush [facility] 2021-08-08 2021-08-08 Hospital [facility] 1.2.840.114 [id number] Univers 11:30:00 23:59:00 Encounter Vijay HEALTH 350.1.13.10 ity of [place] 4.2.7.2.686 [place] as TOÑO?BLEA [phone] [place] whit [place] 808 [facility] 2021-08-08 2021-08-08 Outpatient [facility] [id number] Univers 11:15:00 11:15:00 VIJAY lechuga [facility] 2021-08-08 2021-08-08 Outpatient R [facility] [id number] Univers 11:00:00 11:00:00 VIJAY lechuga [facility] 2021-08-08 2021-08-08 Patient Doctor ORTEGA 1.2.840.114 [id number] Univers 00:00:00 00:00:00 Secure Msg UnassYAZMIN orozco 350.1.13.10 ity of [facility] 4.2.7.2.686 [place] as [id number] [address] 2021-08-07 2021-08-07 Office [facility] 1.2.840.114 [id number] Univers 09:30:00 10:23:21 Visit Vijay PETTY 350.1.13.10 it y of [place] 4.2.7.2.686 Martin as TOÑO?BLEA [id number] [address] [facility] 2021-08-07 2021-08-07 Outpatient R JUAN [facility] [id number] Univers 09:30:00 10:23:21 VIJAY lechuga [facility] 2021-08-07 2021-08-07 Outpatient R JUAN [facility] [id number] Univers 09:30:00 09:30:00 VIJAY lechuga [facility] 2021-08-07 2021-08-07 Patient Víctorkathy [facility] 1.2.840.114 [id number] Univers 00:00:00 00:00:00 Secure Msg Vijay HEALTH 350.1.13.10 ity of [place] 4.2.7.2.686 Martin as TOÑO?BLEA [id number] [address] [facility] 2021-08-07 2021-08-07 Patient Juan [facility] 1.2.840.114 [id number] Univers 00:00:00 00:00:00 Secure Msg Vijay HEALTH 350.1.13.10 ity of [place] 4.2.7.2.686 Martin as TOÑO?BLEA [id number] [address] [facility] 2021-08-07 2021-08-07 Patient Apurva [facility] 1.2.840.114 [id number] Univers 00:00:00 00:00:00 Secure Msg Celina A FLACO 350.1.13.10 ity of [facility] [place].2.[phone] [address] 2021-08-04 2021-08-04 Outpatient R SHADIA [facility] [id number] Univers 10:00:00 10:00:00 PETRA ity of [facility] 2021-08-04 2021-08-04 [facility] 1.2.840.114 [id number] Univers 00:00:00 00:00:00 Secure Msg Vijay HEALTH 350.1.13.10 ity of [place] 4.2.7.2.686 [place] as TOÑO?BLEA [id number] [address] MEDICAL OFFICE BUILDING 2021-08-03 2021-08-03 Office JITENDRA Diaz 1.2.840.114 [id number] Univers 11:00:00 12:48:43 Visit Jayy Y 350.1.13.10 it y of [facility] 4.2.7.2.686 [place] as BANK [phone] [facility]. [address] [place] [address] 2021-08-03 2021-08-03 [facility] [id number] Univers 11:00:00 12:48:43 JAYY ity [facility] 2021-08-03 2021-08-03 [facility] [id number] Univers 11:00:00 11:00:00 JAYY ity [facility] 2021-08-03 2021-08-03 [facility] 1.2.840.114 [id number] Univers 00:00:00 00:00:00 Secure Msg Ceilna A FLACO 350.1.13.10 ity of [facility] 4.2.7.2.[place] [id number] [address] 2021-08-02 2021-08-02 Telephone Juan [facility] [id number] Univers 00:00:00 00:00:00 Vijay HEALTH 350.1.13.10 it y of [place] 4.2.7.2.686 [place] as TOÑO?BLEA [phone] [place] [facility] [place] [address] [facility] 2021-07-21 2021-07-21 Outpatient R DARRION WYATT [facility] [id number] Univers 08:00:00 08:52:53 YOSELIN, DARRION [facility] 2021-07-17 2021-07-17 Outpatient R JUAN [facility] [id number] Univers 11:30:00 11:30:00 VIJAY lechuga [facility] 2021-06-19 2021-06-19 [facility]phone [facility] 1.2.113.113 [id number] Univers 00:00:00 00:00:00 [facility] [facility] 350.1.13.10 it y of [place] 4.2.7.2.686 Martin as TOÑO?BLEA [phone] [facility] MIKI 044 [facility] 2021-06-09 2021-06-09 Telephone [facility] 1.2.017.585 [id number] Univers 00:00:00 00:00:00 Arleyraheel [place] 350.1.13.10 ity [facility] 4.2.7.2.686 [place] [id number] Va whit TORRES 059 [facility] 2021-06-06 2021-06-06 Outpatient R DEYVI [facility] [id number] Univers 11:15:00 11:15:00 TETO lechuga [facility] 2021-06-06 2021-06-06 Outpatient R DEYVI [facility] [id number] Univers 11:15:00 11:15:00 TETO lechuga [facility] 2021-06-02 2021-06-02 Outpatient R CRISTINA [facility] [id number] Univers 15:45:00 15:45:00 WONDIANITRA itchino o f [facility] 2021-05-31 2021-05-31 Outpatient [facility] [id number] Univers 10:00:00 10:46:31 VIJAY lechuga [facility] 2021-05-31 2021-05-31 Office [facility] 1.2.840.114 [id number] Univers 10:00:00 10:46:31 Visit Vijay HEALTH 350.1.13.10 it y of [facility] 4.2.7.2.686 [place]ni as TOÑO?BLEA [id number] [address] [facility] 2021-05-31 2021-05-31 Outpatient R JUAN [facility] [id number] Univers 10:00:00 10:46:31 VIJAY ity of [facility] 2021-05-31 2021-05-31 Orders Doctor JORDAN 1.2.840.114 [id number] Univers 00:00:00 00:00:00 Only Unassigned, YAZMIN 350.1.13.10 ity of [place] [facility] 4.2.7.2.686 [place] as [id number] [address] 2021-05-26 2021-05-26 [facility] 1.2.111.357 [id number] Univers 00:00:00 00:00:00 Skylar A HEALTH 350.1.13.10 i ty of [place] 4.2.7.2.686 [place] as TOÑO?BLEA [phone] [address] [facility] 2021-05-26 2021-05-26 Patient Prasanna Vargas [facility] 1.2.315.334 [id number] Univers 00:00:00 00:00:00 Secure Msg Cam [place] 350.1.13.10 ity of [place].2.7.2.686 [place] [id number] [address] 2021-05-25 2021-05-25 [facility]medici [facility] 1.2.840.114 [id number] Univers 14:00:00 14:30:00 ne Visit Skylar A HEALTH 350.1.13.10 ity of [facility] 4.2.7.2.686 [place] as TOÑO?BLEA [id number] [address] [facility] 2021-05-25 2021-05-25 Outpatient R [facility] [id number] Univers 14:00:00 14:00:00 SKYLAR ity of [facility] 2021-05-25 2021-05-25 Outpatient R YANELI, [facility] [id number] Univers 14:00:00 14:00:00 SKYLAR lechuga [facility] 2021-05-24 2021-05-24 Telephone Ponce [facility] 1.2.338.479 [id number] Univers 00:00:00 00:00:00 Rad [place] 350.1.13.10 ity [facility] 4.2.7.2.686 [place] [phone] Va dical [facility] 059 [facility] 2021-05-23 2021-05-23 Outpatient R [facility] [id number] Univers 10:00:00 10:00:[facility] 2021-05-23 2021-05-23 Outpatient R [facility] [id number] Univers 10:00:00 10:00:00 [facility] 2021-05-16 2021-05-16 Outpatient R [facility] [id number] Univers 09:00:00 09:00:00 TETO [facility] 2021-05-12 2021-05-12 Orders Doctor JORDAN 1.2.840.114 [id number] Univers 00:00:00 00:00:00 Only Unassigned, YAZMIN 350.1.13.10 ity of [place] [facility] 4.2.7.2.686 [place] as [phone] [address] 2021-05-10 2021-05-10 Outpatient R [facility] [id number] Univers 13:00:00 13:00:00 WONDIFUL ity o f [facility] 2021-05-10 2021-05-10 Outpatient R CRISTINA [facility] [id number] Univers 13:00:00 13:00:00 WONDIFUL ity o f [facility] 2021-05-09 2021-05-09 Telephone Prasanna Vargas [facility] 1.2.840.114 [id number] Univers 00:00:00 00:00:00 Jm [place] 350.1.13.10 i ty of [place] 4.2.7.2.686 [place] [phone] Va dical NAL 134 [facility] 2021-05-09 2021-05-09 Patient [facility] 1.2.840.114 [id number] Univers 00:00:00 00:00:00 Secure Msg Rad [place] 350.1.13.10 ity of [facility] 4.2.7.2.686 [place] [phone] Va dical NAL 059 [facility] 2021-05-08 2021-05-08 Outpatient R [facility] [id number] Univers 16:00:00 16:00:00 JE itchino [facility] 2021-05-08 2021-05-08 Outpatient R [facility] [id number] Univers 16:00:00 16:00:00 JEDAYANA lechuga [facility] 2021-05-08 2021-05-[address] [facility] 1.2.840.114 [id number] Univers 00:00:00 00:00:00 Secure Msg Rad [place] 350.1.13.10 ity of [place] 4.2.7.2.686 [place] [id number] Va dical NAL 059 [facility] 2021-05-08 2021-05-08 Patient [facility] 1.2.840.114 [id number] Univers 00:00:00 00:00:00 Secure Msg Rad [place] 350.1.13.10 ity of [facility] 4.2.7.2.686 [place] [phone] Va dical NAL 059 [facility] 2021-05-03 2021-05-03 Outpatient R [facility] [id number] Univers 11:15:36 23:59:00 REJI fitzpatrick f [facility] 2021-05-03 2021-05-03 [facility] 1.2.840.114 [id number] Univers 11:15:36 23:59:00 Encounter Reji [place] 350.1.13.10 ity of [facility] 4.2.7.2.686 [place] [id number] [facility] 846 [facility] 2021-05-03 2021-05-03 Telephone [facility] 1.2.840.114 [id number] Univers 00:00:00 00:00:00 Wondiful A HEALTH 350.1.13.10 ity of [place] 4.2.7.2.686 [place] as TOÑO?BLEA [phone] [address] [facility] 2021-05-02 2021-05-[address] [facility] 1.2.177.810 [id number] Univers 00:00:00 00:00:00 Sendil [facility] [place] 350.1.13.10 ity of [place] 4.2.7.2.686 [place] [id number] [place] 764009 [facility] 2021-05-02 2021-05-02 Patient [facility] 1.2.840.114 [id number] Univers 00:00:00 00:00:00 Secure Msg Wondiful A HEALTH 350.1.13.10 ity of [place] 4.2.7.2.686 [place] as TOÑO?BLEA [phone] [address] 2021-05-02 2021-05-02 Telephone [facility]UN[facility] 1.2.840.114 [id number] Univers 00:00:00 00:00:00 Wondiful A HEALTH 350.1.13.10 ity of [place] 4.2.7.2.686 [place] as TOÑO?BLEA [id number] [address] [facility] 2021-05-02 2021-05-[address] [facility] 1.2.840.114 [id number] Univers 00:00:00 00:00:00 Secure Msg Sendil [facility] [place] 350.1.13.10 ity of [place] 4.2.7.2.686 [place] [phone] [facility] 059 [facility] 2021-04-27 2021-04-27 Emergency X [facility]OUNM [facility] ERT [id number] Univers 14:24:00 15:49:00 MAGGIE ity of [facility] 2021-04-27 2021-04-27 Emergency Al[facility]UN[facility] 1.2.840.114 [id number] Univers 14:24:00 15:49:00 Maggie [place] 350.1.13.10 ity of [place] 4.2.7.2.686 [place] [facility] [id number] [facility] [address] [place] 2021-04-27 2021-04-27 Laboratory Only, Ang Db Test [facility] 1.2.8 40.114 [id number] Univers 11:15:00 11:30:00 Only Unknown, Attending HEALTH 350.1.13.10 ity of [place] 4.2.7.2.686 [place] TOÑO?BLEA [id number] [facility] [address] [place] MEDICAL OFFICE BUILDING 2021-04-27 2021-04-27 Outpatient R SIL [facility] [id number] Univers 11:15:00 11:15:00 THONY ity of [facility] 2021-04-27 2021-04-27 Orders Doctor JORDAN 1.2.840.114 [id number] Univers 00:00:00 00:00:00 Only Unassigned, YAZMIN 350.1.13.10 ity of [place] [facility] 4.2.7.2.686 [place] as [phone] [facility] [address] [place] 2021-04-20 2021-04-20 Outpatient R JUSTINE [facility] [id number] Univers 15:00:00 15:00:00 SCOTT ity of [facility] 2021-04-13 2021-04-13 Patient Cristina [facility] 1.2.840.114 [id number] Univers 00:00:00 00:00:00 Secure Msg Claudette A HEALTH 350.1.13.10 ity of [place] 4.2.7.2.686 [place] as TOÑO?BLEA [id number] [facility] [address] [place] MEDICAL OFFICE BUILDING 2021-04-12 2021-04-12 Telephone Cristina [facility] 1.2.840.114 [id number] Univers 00:00:00 00:00:00 Wondiful A HEALTH 350.1.13.10 ity of [facility] 4.2.7.2.686 [place] as TOÑO?BLEA [phone] [facility] KNEY 044 [facility] 2021-03-27 2021-03-27 Telephone Prasanna Vargas [facility] 1.2.840.114 [id number] Univers 00:00:00 00:00:00 Cam [place] 350.1.13.10 i ty of [facility] [place] 4.2.7.2.[place] [id number] [facility] 134 [facility] 2021-03-23 2021-03-23 Outpatient R KAVYA [facility] [id number] Univers 13:30:00 13:30:00 CHILVANA ity o f [facility] 2021-03-23 2021-03-23 Outpatient R KAVYA [facility] [id number] Univers 13:30:00 13:30:00 CHILVANA ity o f [facility] 2021-03-22 2021-03-22 Outpatient R JEANNA NEHEMIAHRIEz [facility] [id number] Univers 09:20:00 09:20:00 ATANAS, [facility] ity [facility] 2021-03-22 2021-03-22 Outpatient R JEANNA [facility] [id number] Univers 09:20:00 09:20:00 [facility], [facility] 2021-03-20 2021-03-20 Outpatient R CRISTINA [facility] [id number] Univers 00:00:00 00:00:00 WONDIFUL ity o f [facility] 2021-03-18 2021-03-18 Donaldo [facility]UN[facility] 1.2.840.114 [id number] Univers 00:00:00 00:00:00 Management Wondiful A HEALTH 350.1.13.10 ity of [facility] 4.2.7.2.686 [place] as TOÑO?BLEA [phone] [facility] 044 [facility] 2021-03-16 2021-03-16 Food And Beverage Checker Lab, Ang - [place] [facility] 1.2.840.1 14 [id number] Univers 11:16:07 11:31:07 Visit Claudette Evans A HEALTH 350.1.13.1 0 ity of [place] 4.2.7.2.686 [place] as TOÑO?BLEA [phone] [facility] [address] [place] MEDICAL [facility] 2021-03-16 2021-03-16 Outpatient R CRISTINA [facility] [id number] Univers 11:30:00 11:30:00 WONDIFUL ity o f [facility] 2021-03-16 2021-03-16 Outpatient [facility] [id number] Univers 11:00:00 11:14:45 WONDIFUL ity o f [facility] 2021-03-16 2021-03-16 Office [facility] 1.2.840.114 [id number] Univers 10:00:58 11:14:45 Visit Wondiful A HEALTH 350.1.13.10 ity of [place] 4.2.7.2.686 [place] as TOÑO?BLEA [phone] [facility] 044 [facility] 2021-03-16 2021-03-16 Patient Cristina [facility] 1.2.840.114 [id number] Univers 00:00:00 00:00:00 Secure Msg Wondiful A HEALTH 350.1.13.10 ity of [place] 4.2.7.2.686 [place] as TOÑO?BLEA [id number] [facility] 044 [facility] 2021-03-02 2021-03-02 Outpatient R CRISTINA [facility] [id number] Univers 16:15:00 16:15:00 WONDIFUL ity o f [facility] 2021-02-28 2021-02-28 Outpatient R HARDEEP [facility] [id number] Univers 18:30:00 18:30:00 ILEANA ity of [facility] 2021-02-28 2021-02-28 Telephone Cristina [facility] 1.2.840.114 [id number] Univers 00:00:00 00:00:00 Wondiful A Health 350.1.13.10 ity of [place] 4.2.7.2.686 Martin as Toño?Blea [phone] [place] whit [place] [address] [place] Medical Office [facility] 2021-02-27 2021-02-27 Outpatient R STEPHANY [facility] [id number] Univers 09:00:00 09:00:00 AMELIA lechuga of [facility] 2021-02-23 2021-02-23 Telephone [facility] 1.2.840.114 [id number] Univers 00:00:00 00:00:00 Wondiful A Health 350.1.13.10 ity of [place] 4.2.7.2.686 Martin as Toño?Blea [id number] [place] 0[address] [place] Medical Office [facility] 2021-02-10 2021-02-10 Emergency Kaycee Méndez [facility] 1.2.840.114 [id number] Univers 18:12:00 23:39:00 Sharlene [place] 350.1.13.10 i ty of [place] 4.2.7.2.686 [place] [phone] [facility] [address] [place] 2021-02-09 2021-02-09 Hospital [facility] 1.2.197.498 [id number] Univers 13:40:00 23:59:00 Encounter Wondiful A Health 350.1.13.10 ity of [place] 4.2.7.2.686 Martin as Toño?Blea [phone] [facility] [place] [address] [place] Medical Office [facility] 2021-02-09 2021-02-09 Food And Beverage Checker Lab, Ang - Db [facility] 1.2.840.1 14 [id number] Univers 13:49:05 14:04:05 Visit Brian Evanskacey A Health 350.1.13.1 0 ity of [place] 4.2.7.2.686 Martin as Toño?Blea [phone] [facility] [place] [address] [place] Medical Office Building 2021-02-09 2021-02-09 Office [facility] 1.2.840.114 [id number] Univers 12:23:13 13:47:12 Visit Wondiful A Health 350.1.13.10 ity of [place] 4.2.7.2.686 Martin as Toño?Blea [phone] [facility] [address] [place] Medical Office [facility] 2021-02-09 2021-02-09 Outpatient R CRISTINA [facility] [id number] Univers 13:00:00 13:00:00 WONDIFUL ity o f [facility] 2021-02-08 2021-02-08 Outpatient R NEHEMIAH MEEKSRIEz [facility] [id number] Univers 10:20:00 10:20:00 ANN-MARIEGERARDOJABIER [facility] 2021-02-02 2021-02-02 Outpatient R [facility] [id number] Univers 10:30:00 10:30:00 SYKLAR [facility] 2021-02-02 2021-02-02 Telephone Crist[facility]UN[facility] 1.2.840.114 [id number] Univers 00:00:00 00:00:00 Wondiful A Health 350.1.13.10 ity of [place] 4.2.7.2.686 Martin as Toño?Blea [phone] [address] Medical Office [facility] 2021-02-01 2021-02-01 Outpatient R [facility] [id number] Univers 08:30:00 08:30:00 SKYLAR [facility] 2021-01-31 2021-01-31 Urgent [facility] 1.2.840.114 [id number] Univers 18:44:04 19:41:26 Care [facility] 350.1.13.10 i ty of [place] 4.2.7.2.686 Martin as Toño?Blea [phone] [facility] [address] [place] Medical Office [facility] 2021-01-31 2021-01-31 Outpatient R OLIVER [facility] [id number] Univers 19:00:00 19:00:00 FLACO ity o f [facility] 2021-01-31 2021-01-31 Telephone Crist[facility]UN[facility] .2.840.114 [id number] Univers 00:00:00 00:00:00 Wondiful A Health 350.1.13.10 ity of [place] 4.2.7.2.686 [place] as Toño?Blea [phone] [place] dicaliyah [place] [address] [place] Medical Office [facility] 2021-01-30 2021-01-30 Telephone Ponce [facility] 1.2.978.928 [id number] Univers 00:00:00 00:00:00 Sendil Cuate [place] 350.1.13.10 ity of [place] 4.2.7.2.686 [place] ess[place] [id number] Va whit nal 059 [facility] 2021-01-26 2021-01-26 Outpatient [facility] [id number] Univers 14:00:00 14:00:00 SENDIL ity [facility] 2021-01-25 2021-01-25 Outpatient R [facility] [id number] Univers 15:00:00 15:00:00 ity [facility] 2021-01-20 2021-01-20 Telemedici YaneliUN[facility] 1.2.840.114 [id number] Univers 16:51:22 17:12:41 ne Visit Skylar Cannon [facility] 350.1.13.10 ity of [place] 4.2.7.2.686 Martin as Toño?Blea [phone] [address] Office [facility] 2021-01-20 2021-01-20 Outpatient R [facility] [id number] Univers 16:30:00 16:30:00 SKYLAR [facility] 2021-01-19 2021-01-19 Outpatient R [facility] [id number] Univers 10:15:00 10:15:00 KAYLEY ity [facility] 2021-01-14 2021-01-14 JORDAN Guzman 1.2.840.114 [id number] Univers 00:00:00 00:00:00 Management Kassandra Robert YAZMIN 350.1.13.10 ity of [facility] 4.2.7.2.686 [place] as [id number] [address] 2021-01-12 2021-01-12 Emergency [facility] 1.2.297.174 [id number] Univers 16:10:00 19:45:00 Karin Yanes [place] 350.1.13.10 i ty of [place] 4.2.7.2.686 [place] [phone] [address] 2021-01-12 2021-01-12 Outpatient R HARDEEP [facility] [id number] Univers 15:20:00 15:20:00 [facility] 2021-01-12 2021-01-12 Urgent Thony Johnson [facility] 1.2.840.114 [id number] Univers 14:46:57 15:06:57 Care Ileana Medrano [facility] 350.1.13.10 ity of [place] 4.2.7.2.686 Martin as Toño?Blea [phone] [address] Medical Office [facility] 2020-12-26 2020-12-26 Outpatient [facility] [id number] Univers 15:30:00 16:13:32 SENDIL [facility] 2020-12-26 2020-12-26 Office [facility] 1.2.840.114 [id number] Univers 15:30:00 16:13:32 Visit Sendzohra LAW[place] 350.1.13.10 ity of [place] 4.2.7.2.686 [place] [phone] [address] 2020-12-26 2020-12-26 Office [facility]Ronald [facility] 1.2.840.114 [id number] Univers 15:00:32 16:13:32 Visit Sendzohra Lawson 350.1.13.10 ity of [place] 4.2.7.2.686 [place] Profess[place] [id number] [address] 2020-12-26 2020-12-26 Outpatient R PONCE [facility] [id number] Univers 15:30:00 15:30:00 SENDIL [facility] 2020-11-22 2020-11-22 Outpatient R APURVA [facility] [id number] Univers 11:00:00 11:00:00 CELINA lechuga [facility] 2020-11-10 2020-11-10 Urgent Alissa Collins [facility] 1.2.840.114 [id number] 18:42:46 19:53:43 [facility] 350.1.13.10 [place] 4.2.7.2.686 [facility] [phone] nal [address] Office [address] One 2020-11-10 2020-11-10 Outpatient R [facility] [id number] Univers 19:00:00 19:00:00 itchino [facility] 2020-10-31 2020-10-31 Emergency Kaycee Méndez [facility] 1.2.840.114 [id number] 18:52:00 22:15:00 Sharlene [place] 350.1.13.10 [place] 4.2.7.2.686 [place] [id number] 2020-10-31 2020-10-31 Outpatient R [facility] [id number] Univers 19:00:00 19:00:00 CARI lechuga o f [facility] 2020-10-31 2020-10-31 Orders Doctor JORDAN 1.2.840.114 [id number] 00:00:00 00:00:00 Only Unassigned, YAZMIN 350.1.13.10 [place] [address].2.7.2.686 [id number] 2020-10-20 2020-10-20 Emergency Kaycee Méndez [facility] 1.2.840.114 [id number] 14:02:00 17:13:00 Sharlene [place] 350.1.13.10 [place] 4.2.7.2.686 [place] [id number] 084 2020-10-14 2020-10-14 [facility] Prasanna Vargas [facility] 1.2.840.114 [id number] 10:00:00 23:59:00 Encounter Jm [place] 350.1.13.10 [place] 4.2.7.2.686 [place] [id number] 2020-10-14 2020-10-14 Outpatient [facility] [id number] Univers 13:30:00 13:30:00 [facility] 2020-10-09 2020-10-09 Emergency [facility] 1.2.346.402 [id number] 12:00:00 15:57:00 Anna Lawson 350.1.13.10 [place] 4.2.7.2.686 [place] [id number] 084 2020-10-06 2020-10-06 Office Alicia [facility] 1.2.161.428 [id number] 08:53:00 09:46:44 Visit Jm Lawson 350.1.13.10 [place] 4.2.7.2.686 Professio [id number] nal 134 Building 2020-10-06 2020-10-06 Outpatient R PRASANNA VARGAS [facility] [id number] Univers 09:30:00 09:30:00 [facility] 2020-10-04 2020-10-04 Outpatient R APURVA [facility] [id number] Univers 14:00:00 14:00:00 CELINAMary [facility] 2020-09-30 2020-09-30 Outpatient R APURVA [facility] [id number] Univers 10:30:00 10:30:00 CELINA [facility] 2020-09-29 2020-09-29 Outpatient R JASPAL [facility] [id number] Univers 13:45:00 13:45:00 PREET [facility] 2020-09-06 2020-09-06 Outpatient R PRASANNA VARGAS [facility] [id number] Univers 15:30:00 15:30:00 [facility] 2020-09-02 2020-09-02 Outpatient R DARRION WYATT [facility] [id number] Univers 15:40:00 15:40:00 DARRION WYATT [facility] 2020-08-31 2020-08-31 Outpatient R PONCE [facility] [id number] Univers 10:30:00 10:30:00 SENDIL [facility] 2020-08-18 2020-08-18 Outpatient R PRASANNA VARGAS [facility] [id number] Univers 09:30:00 09:30:00 [facility] 2020-08-11 2020-08-11 Outpatient R PRASANNA VARGAS [facility] [id number] Univers 13:30:00 13:30:00 ity [facility] 2020-08-04 2020-08-04 Outpatient R JUSTINE [facility] [id number] Univers 14:00:00 14:00:00 SCOTT ity [facility] 2020-07-28 2020-07-28 Outpatient R PONCE [facility] [id number] Univers 10:30:00 10:30:00 SENDIL ity [facility] 2020-06-30 2020-06-30 Outpatient R CRISTINA [facility] [id number] Univers 16:15:00 16:15:00 WONDIFUL ity o f [facility] 2020-06-17 2020-06-17 Outpatient R DARRION WYATT [facility] [id number] Univers 15:00:00 15:00:00 [facility] 2020-06-16 Outpatient R PONCE [facility] [id number] Univers 15:30:00 15:30:00 [facility]09 2020-06-09 Outpatient R NI DISLA [facility] [id number] Univers 12:30:00 12:30:00 ity [facility] 2020-06-08 2020-06-08 Outpatient R NI DISLA [facility] [id number] Univers 08:00:00 08:00:00 ity [facility] 2020-06-02 2020-06-02 Outpatient R PONCE [facility] [id number] Univers 09:00:00 09:00:00 [facility] 2020-[facility]28 2020-05-28 Outpatient R NATASHA [facility] [id number] Univers 10:00:00 10:00:00 CARI ity o f [facility] 2020-05-24 2020-05-24 Outpatient R NI DISLA [facility] [id number] Univers 10:00:00 10:00:00 ity [facility] 2020-05-19 2020-05-19 Outpatient R CORETTAOSTIO Hui [facility] [id number] Univers 16:30:00 16:30:00 [facility] 2020-05-17 2020-05-17 Outpatient R DARRION WYATT [facility] [id number] Univers 13:00:00 13:00:00 DARRION WYATT [facility] 2020-05-16 2020-05-16 Outpatient R CRISTINA [facility] [id number] Univers 16:00:00 16:00:00 WONDIFUL ity o f [facility] 2020-05-08 2020-05-08 Emergency X VIRGIE, [facility] ERT [id number] Univers 10:24:00 13:03:00 OLAMIDE [facility] 2020-05-03 2020-05-03 Outpatient R CRISTINA [facility] [id number] Univers 15:00:00 15:00:00 WONDIFUL ity o f [facility] 2020-04-30 2020-05-01 Outpatient X KAVYA [facility] JOSÉ MANUEL [id number] Univers 11:14:00 15:50:00 RODRIGUEZ [facility] 2020-04-30 2020-04-30 Outpatient R JASPAL [facility] [id number] Univers 10:20:00 10:20:00 ROSALES [facility] 2020-04-30 2020-04-30 Outpatient R JASPAL [facility] [id number] Univers 10:15:00 10:15:00 ROSALES [facility] 2020-04-28 2020-04-28 Outpatient R CORETTA OSITO [facility] [id number] Univers 14:00:00 14:00:00 [facility] 2020-04-25 2020-04-25 Outpatient R CRISTINA [facility] [id number] Univers 16:15:00 16:15:00 WONDIFUL ity o f [facility] 2020-04-18 2020-04-18 Outpatient R CORETTA OSITO [facility] [id number] Univers 10:00:00 10:00:00 [facility] 2020-04-15 2020-04-15 Outpatient R PONCE [facility] [id number] Univers 10:30:00 10:30:00 SENDIL [facility] 2020-04-12 2020-04-13 Outpatient [facility] [id number] Univers 13:38:00 16:25:00 [facility] 2020-03-17 2020-03-17 Outpatient R DEYVI [facility] [id number] Univers [facility]:15[facility] 2020-[facility]-04 Refill [facility] [id number] 00:00:00 00:00:00 MULTISPEC [id number] IALTY [id number] CENTER [id number] [facility] 2020-02-25 2020-02-25 Outpatient R CORETTA OSITO [facility] [id number] Univers 16:00:00 16:00:00 [facility] 2020 2020 Outpatient R DEYVI [facility] [id number] Univers 14:00:00 14:00:00 TETO [facility] 2020-02-08 2020-02-08 Outpatient R PRASANNA VARGAS [facility] [id number] Univers 10:30:00 10:30:00 [facility] 2020-02-04 2020-02-04 Outpatient R CORETTA OSITO [facility] [id number] Univers 13:30:00 13:30:00 [facility] 2020-01-23 2020-01-23 Outpatient R [facility] [id number] Univers 10:15:00 10:15:00 [facility] 2020-01-21 2020-01-21 Outpatient R CORETTA OSITO [facility] [id number] Univers 13:00:00 13:00:00 [facility] 2020-01-14 2020-01-14 Outpatient R CORETTA OSITO [facility] [id number] Univers 16:00:00 16:00:00 [facility] 2020-01-05 2020-01-05 Outpatient R PRASANNA VARGAS [facility] [id number] Univers 13:45:00 13:45:00 [facility] 2019-12-03 2019-12-03 Outpatient R AKINSIPE, [facility] [id number] Univers 10:30:00 10:30:00 CRICKET ity o f [facility] 2019-11-27 2019-11-27 Outpatient R VANAPHAN, [facility] [id number] Univers 11:00:00 11:00:00 [facility] 2019-11-25 2019-11-25 Outpatient R VANAPHAN, [facility] [id number] Univers 08:00:00 08:00:00 [facility] 2019-11-18 2019-11-18 Outpatient R VANAPHAN, [facility] [id number] Univers 10:00:00 10:00:00 [facility] 2019-09-02 2019-09-02 Outpatient R AKINSIPE, [facility] [id number] Univers 11:00:00 11:00:00 CRICKET ity o f [facility] 2019-08-14 2019-08-14 Outpatient R VANAPHAN, [facility] [id number] Univers 10:15:00 10:15:00 [facility] 2019-08-13 2019-08-13 Outpatient R AKINSIPE, [facility] [id number] Univers 11:00:00 11:00:00 CRICKET ity o f [facility] 2019-08-12 2019-08-12 Outpatient R [facility] [id number] Univers 09:00:00 09:00:00 [facility] 2019-07-20 2019-07-20 Outpatient P PRASANNA VARGAS [facility] CHRIS [id number] Univers 16:06:00 16:06:00 [facility] 2019-07-20 2019-07-20 Outpatient R AKINSIPE, [facility] [id number] Univers 08:15:00 08:15:00 CRICKET ity o f [facility] 2019-07-13 2019-07-13 Outpatient R AKINSIPE, [facility] [id number] Univers 08:00:00 08:00:00 CRICKET ity o f [facility] 2019-07-12 2019-07-12 Outpatient P PRASANNA VARGAS [facility] CHRIS [id number] Univers 13:39:00 13:39:00 [facility] 2019-07-06 2019-07-06 Outpatient R BRANDON [facility] [id number] Univers 13:00:00 13:00:00 CRICKET lechuga o susan [facility] 2019-06-13 2019-06-13 Emergency X MARGARITA [facility] ERT [id number] Univers 10:40:46 12:35:00 WATHEALI [facility] 2019-05-13 2019-05-14 Outpatient P PRASANNA VARGAS [facility] CHRIS [id number] Univers 23:07:00 09:15:00 [facility] Results Test Description Test Time Test Comments Results Result Comments Source TEST, SERUM 2022-08-01 00:23:34 Test Item Value Reference Range Interpretation Comme nts PREG SERUM (test code = 5930500429) Negative WESLEY (test code = WESLEY) Less than 10 IU/L. ?If low titer or ectopic is suspected, resubmit specimen in 48-72 hours. [facility] ([id number])2022-07-31 23:58:12 Test Item Value Reference Range Interpretation Comments NA (test code = 140 mmol/L 135-145 7944115526) K (test code = 3.6 mmol/L 3.5-5.0 6189685384) CL (test code = 106 mmol/L 98-108 9806543099) CO2 TOTAL (test code = 21 mmol/L 23-31 L 3427487060) AGAP (test code = 13 2-16 8814275110) BUN (test code = 8 mg/dL 7-23 7158156416) GLUCOSE (test code = 90 mg/dL 70-110 6269209781) CREATININE (test code = 0.90 mg/dL 0.50-1.04 5863374411) TOTAL BILI (test code = 0.5 mg/dL 0.1-1.1 5113039680) CALCIUM (test code = 9.0 mg/dL 8.6-10.6 7698827817) T PROTEIN (test code = 7.8 g/dL 6.3-8.2 6858725795) ALBUMIN (test code = 4.6 g/dL 3.5-5.0 4017505787) ALK PHOS (test code = 63 U/L 34-122 4588553920) ALTv (test code = 23 U/L 5-35 1742-6) AST(SGOT) (test code = 27 U/L 13-40 2354181492) eGFR (test code = 75.1 mL/min/1.73m2 3113934465) WESLEY (test code = WESLEY) Association of [...] tests). Lab Interpretation Abnormal (test code = 67237-4) [facility]57[facility]32 Test Item Value Reference Range Interpretation Comments LIPASE (test code = 5848577615) 55 U/L 0-220 Lab Interpretation (test code = Normal 08725-4) [facility] WITH [id number] 23:47:31 Test Item Value Reference Range Interpretation Comments WBC (test code = 5.64 See_Comment [Automated 6690-2) message] The sy stem which generated this result transmitted reference range : 4.30 - 11.10 10*3/?L. The reference range was not used to interpret this result as normal/abnormal . RBC (test code = 4.51 See_Comment [Automated 789-8) message] The sy stem [...] RDW-SD (test code = 42.5 fL 39.0-49.9 35272-6) RDW-CV (test code = 13.0 % 12.0-15.5 788-0) PLT (test code = 339 See_Comment [Automated 777-3) message] The sy stem which generated this result transmitted reference range : 166 - 358 10*3/ ?L. The reference r david was not used to interpret this result as normal/abnormal . MPV (test code = 9.4 fL 9.5-12.9 L 25926-6) NRBC/100 WBC (test 0.0 See_Comment [Automat ed code = 9994826372) message] The system which generated this result transmitted reference range : 0.0 - 10.0 /100 WBCs. The refer ence range was not u sed to interpret th is result as normal/abnormal . NRBC x10^3 (test code See_Comment [Auto mated = 4449082016) message] The s ystem which generated this result transmitted reference range : 10*3/?L. The reference range was not used to interpret this result as normal/abnormal . GRAN MAT (NEUT) % 51.2 % (test code = 770-8) IMM GRAN % (test code 0.20 % = 3946886096) LYMPH % (test code = 36.5 % 736-9) MONO % (test code = 5.7 % 5905-5) EOS % (test code = 5.9 % 713-8) BASO % (test code = 0.5 % 706-2) GRAN MAT x10^3(ANC) 2.89 10*3/uL 1.88-7.09 (test code = 2694103113) IMM GRAN x10^3 (test 0.00-0.06 code = 8610933683) LYMPH x10^3 (test code 2.06 10*3/uL 1.32-3.29 = 731-0) MONO x10^3 (test code 0.32 10*3/uL 0.33-0.92 L = 742-7) EOS x10^3 (test code = 0.33 10*3/uL 0.03-0.39 711-2) BASO x10^3 (test code 0.03 10*3/uL 0.01-0.07 = 704-7) Lab Interpretation Abnormal (test code = 45996-1) [id number] 16:14:38 Test Item Value Reference Range Interpretation Comments POCT Molecular Strep (test code = Negative Negative 83081-0) Lab Interpretation (test code = Normal 89504-8) [facility] ([id number])2022-05-05 19:35:37 Test Item Value Reference Range Interpretation Comments NA (test code = 139 mmol/L 135-145 0923204936) K (test code = 4.4 mmol/L 3.5-5.0 4250730103) CL (test code = 104 mmol/L 98-108 7763965353) CO2 TOTAL (test code = 22 mmol/L 23-31 L 0469174191) AGAP (test code = 2-16 5229365881) BUN (test code = 11 mg/dL 7-23 2064670364) GLUCOSE (test code = 95 mg/dL 70-110 1959400728) CREATININE (test code = 0.71 mg/dL 0.50-1.04 7530939858) TOTAL BILI (test code = 0.4 mg/dL 0.1-1.5 9315644769) CALCIUM (test code = 9.1 mg/dL 8.6-10.6 0415794303) T PROTEIN (test code = 7.9 g/dL 6.3-8.2 3324084750) ALBUMIN (test code = 4.7 g/dL 3.5-5.0 0887396118) ALK PHOS (test code = 114 U/L 34-122 4313471067) ALTv (test code = 21 U/L 5-35 1742-6) AST(SGOT) (test code = 21 U/L 13-40 8748039582) eGFR (test code = mL/min/1.73m2 2897456377) WESLEY (test code = WESLEY) Association of [...] tests). Lab Interpretation Abnormal (test code = 52360-0) [facility] WITH [id number] 19:25:37 Test Item Value Reference Range Interpretation [...] RDW-SD (test code = 41.7 fL 39.0-49.9 24815-8) RDW-CV (test code = 12.7 % 12.0-15.5 788-0) PLT (test code = See_Comment H [Automated 777-3) message] The sy stem which generated this result transmitted reference range : 166 - 358 10*3/ ?L. The reference r david was not used to interpret this result as normal/abnormal . MPV (test code = 8.8 fL 9.5-12.9 L 32714-3) NRBC/100 WBC (test See_Comment [Automat ed code = 7954896376) message] The system which generated this result transmitted reference range : 0.0 - 10.0 /100 WBCs. The refer ence range was not u sed to interpret th is result as normal/abnormal . NRBC x10^3 (test code See_Comment [Auto mated = 1040239469) message] The s ystem which generated this result transmitted reference range : 10*3/?L. The reference range was not used to interpret this result as normal/abnormal . GRAN MAT (NEUT) % 56.1 % (test code = 770-8) IMM GRAN % (test code 0.40 % = 2657363530) LYMPH % (test code = 29.9 % 736-9) MONO % (test code = 5.4 % 5905-5) EOS % (test code = 7.8 % 713-8) BASO % (test code = 0.4 % 706-2) GRAN MAT x10^3(ANC) 3.75 10*3/uL 1.88-7.09 (test code = 9614665404) IMM GRAN x10^3 (test 0.03 10*3/uL 0.00-0.06 code = 1686367124) LYMPH x10^3 (test code 2.00 10*3/uL 1.32-3.29 = 731-0) MONO x10^3 (test code 0.36 10*3/uL 0.33-0.92 = 742-7) EOS x10^3 (test code = 0.52 10*3/uL 0.03-0.39 H 711-2) BASO x10^3 (test code 0.03 10*3/uL 0.01-0.07 = 704-7) Lab Interpretation Abnormal (test code = 25145-9) [facility] [id number] 19:00:00 Test Item Value Reference Range Interpretation Comments POCT PREG (test code = 1605) negative On board controls acceptable with present C Line (test code = 3574) POCT PREG LOT # (test code = 3575) [id number] POCT PREG TEST DATE (test 08-11-2023 code = 3576) Lab Interpretation (test code = Normal 39923-1) [facility] [id number] 15:21:11 Test Item Value Reference Range Interpretation Comments WBC (test code = See_Comment [Automated 9390-2) message] The sy stem which generated this [...] RDW-SD (test code = 42.6 fL 39.0-49.9 24300-9) RDW-CV (test code = 12.9 % 12.0-15.5 788-0) PLT (test code = See_Comment H [Automated 777-3) message] The sy stem which generated this result transmitted reference range : 166 - 358 10*3/ ?L. The reference r david was not used to interpret this result as normal/abnormal . MPV (test code = 9.1 fL 9.5-12.9 L 58114-8) NRBC/100 WBC (test See_Comment [Automat ed code = 6301851921) message] The system which generated this result transmitted reference range : 0.0 - 10.0 /100 WBCs. The refer ence range was not u sed to interpret th is result as normal/abnormal . NRBC x10^3 (test code See_Comment [Auto mated = 0945155836) message] The s ystem which generated this result transmitted reference range : 10*3/?L. The reference range was not used to interpret this result as normal/abnormal . GRAN MAT (NEUT) % 56.8 % (test code = 770-8) IMM GRAN % (test code 0.30 % = 9733426586) LYMPH % (test code = 29.5 % 736-9) MONO % (test code = 4.3 % 5905-5) EOS % (test code = 8.3 % 713-8) BASO % (test code = 0.8 % 706-2) GRAN MAT x10^3(ANC) 3.57 10*3/uL 1.88-7.09 (test code = 6468978649) IMM GRAN x10^3 (test 0.00-0.06 code = 8814203415) LYMPH x10^3 (test code 1.85 10*3/uL 1.32-3.29 = 731-0) MONO x10^3 (test code 0.27 10*3/uL 0.33-0.92 L = 742-7) EOS x10^3 (test code = 0.52 10*3/uL 0.03-0.39 H 711-2) BASO x10^3 (test code 0.05 10*3/uL 0.01-0.07 = 704-7) Lab Interpretation Abnormal (test code = 44075-0) [facility]. METABOLIC PANEL ([id number])2022-04-26 15:12:13 Test Item Value Reference Range Interpretation Comments NA (test code = 141 mmol/L 135-145 7360792122) K (test code = 3.4 mmol/L 3.5-5.0 L 4663479105) CL (test code = 104 mmol/L 98-108 6245557469) CO2 TOTAL (test code = 23 mmol/L 23-31 9824547480) AGAP (test code = 2-16 7086816702) BUN (test code = 9 mg/dL 7-23 2334316376) GLUCOSE (test code = 101 mg/dL 70-110 3886254014) CREATININE (test code = 0.82 mg/dL 0.50-1.04 8818382410) TOTAL BILI (test code = 0.7 mg/dL 0.1-1.3 3915051785) CALCIUM (test code = 9.3 mg/dL 8.6-10.6 5638848070) T PROTEIN (test code = 8.1 g/dL 6.3-8.2 8486291105) ALBUMIN (test code = 4.7 g/dL 3.5-5.0 1745261486) ALK PHOS (test code = 108 U/L 34-122 2732033353) ALTv (test code = 24 U/L 5-35 1742-6) AST(SGOT) (test code = 49 U/L 13-40 H 4715204970) eGFR (test code = mL/min/1.73m2 8899196686) WESLEY (test code = WESLEY) Association of [...] tests). Lab Interpretation Abnormal (test code = 97115-2) [facility] [id number] 14:45:00 Test Item Value Reference Range Interpretation Comments POCT PREG (test code = 1605) negative On board controls acceptable with present C Line (test code = 3574) POCT PREG LOT # (test code = 3575) [id number] POCT PREG TEST DATE (test 08/11/2023 code = 3576) Lab Interpretation (test code = Normal 93781-8) [facility] [id number] 01:22:00 Test Item Value Reference Range Interpretation Comments POCT PREG (test code = 1605) Negative On board controls acceptable with Present C Line (test code = 3574) POCT PREG LOT # (test code = 3575) [id number] POCT PREG TEST DATE (test 08-11-2023 code = 3576) Lab Interpretation (test code = Normal 55516-3) [facility] METABOLIC PANEL (NA, K, CL, CO2, GLUCOSE, BUN, CREATININE, CA)2022-04-07 23:01:10 Test Item Value Reference Range Interpretation Comments NA (test code = 138 mmol/L 135-145 9103194237) K (test code = 4.3 mmol/L 3.5-5.0 1548170894) CL (test code = 107 mmol/L 98-108 9473307288) CO2 TOTAL (test code = 20 mmol/L 23-31 L 7845787110) AGAP (test code = 2-16 0300930648) BUN (test code = 9 mg/dL 7-23 9029538799) GLUCOSE (test code = 204 mg/dL 70-110 H 9063330127) CREATININE (test code = 0.74 mg/dL 0.50-1.04 5513744888) CALCIUM (test code = 9.1 mg/dL 8.6-10.6 7379637380) eGFR (test code = mL/min/1.73m2 7745763163) WESLEY (test code = WESLEY) Association of [...] tests). Lab Interpretation Abnormal (test code = 04437-0) [facility] WITH [id number] 22:57:34 Test Item Value Reference Range Interpretation [...] RDW-SD (test code = 42.9 fL 39.0-49.9 08130-9) RDW-CV (test code = 13.4 % 12.0-15.5 788-0) PLT (test code = See_Comment H [Automated 777-3) message] The sy stem which generated this result transmitted reference range : 166 - 358 10*3/ ?L. The reference r david was not used to interpret this result as normal/abnormal . MPV (test code = 8.9 fL 9.5-12.9 L 95410-9) NRBC/100 WBC (test See_Comment [Automat ed code = 0580581630) message] The system which generated this result transmitted reference range : 0.0 - 10.0 /100 WBCs. The refer ence range was not u sed to interpret th is result as normal/abnormal . NRBC x10^3 (test code See_Comment [Auto mated = 5983741371) message] The s ystem which generated this result transmitted reference range : 10*3/?L. The reference range was not used to interpret this result as normal/abnormal . GRAN MAT (NEUT) % 88.7 % (test code = 770-8) IMM GRAN % (test code 0.70 % = 7221607418) LYMPH % (test code = 9.4 % 736-9) MONO % (test code = 0.9 % 5905-5) EOS % (test code = 0.1 % 713-8) BASO % (test code = 0.2 % 706-2) GRAN MAT x10^3(ANC) 7.81 10*3/uL 1.88-7.09 H (test code = 5224956914) IMM GRAN x10^3 (test 0.06 10*3/uL 0.00-0.06 code = 8080833625) LYMPH x10^3 (test code 0.83 10*3/uL 1.32-3.29 L = 731-0) MONO x10^3 (test code 0.08 10*3/uL 0.33-0.92 L = 742-7) EOS x10^3 (test code = 0.03-0.39 L 711-2) BASO x10^3 (test code 0.01-0.07 = 704-7) Lab Interpretation Abnormal (test code = 56772-6) [facility] [id number] 14:07:00 Test Item Value Reference Range Interpretation Comments POCT PREG (test code = 1605) negative On board controls acceptable with present C Line (test code = 3574) POCT PREG LOT # (test code = 3575) [id number] POCT PREG TEST DATE (test 08/11/2023 code = 3576) Lab Interpretation (test code = Normal 67674-0) [facility] [id number] 13:52:00 Test Item Value Reference Range Interpretation Comments POCT PREG (test code = 1605) negative On board controls acceptable with C present Line (test code = 3574) Lab Interpretation (test code = Normal 98528-1) [facility] [id number] 14:59:00 Test Item Value Reference Range Interpretation Comments POCT PREG (test code = 1605) negative On board controls acceptable with yes C Line (test code = 3574) POCT PREG LOT # (test code = 3575) [id number] POCT PREG TEST DATE (test 07/11/2023 code = 3576) Lab Interpretation (test code = Normal 45514-0) [facility] METABOLIC PANEL ([id number])2022 17:51:43 Test Item Value Reference Range Interpretation Comments NA (test code = 139 mmol/L 135-145 4985165836) K (test code = 4.1 mmol/L 3.5-5 9378040463) CL (test code = 104 mmol/L 98-108 9950207104) CO2 TOTAL (test code = 22 mmol/L 23-31 L 8253938151) AGAP (test code = 2-16 3661820901) BUN (test code = 7 mg/dL 7-23 3071795233) GLUCOSE (test code = 114 mg/dL 70-110 H 5895638065) CREATININE (test code = 0.69 mg/dL 0.5-1.04 9116820880) TOTAL BILI (test code = 0.4 mg/dL 0.1-1.3 7802708749) CALCIUM (test code = 9.7 mg/dL 8.6-10.6 2163824191) T PROTEIN (test code = 7.2 g/dL 6.3-8.2 0162973846) ALBUMIN (test code = 4.6 g/dL 3.5-5 8641189280) ALK PHOS (test code = 65 U/L 34-122 6062161231) ALTv (test code = 15 U/L 5-35 1742-6) AST(SGOT) (test code = 19 U/L 13-40 0022760480) eGFR (test code = mL/min/1.73m2 2659469964) WESLEY (test code = WESLEY) Association of [...] tests). Lab Interpretation Abnormal (test code = 70146-8) [facility] WITH [id number] 17:40:24 Test Item Value Reference Range Interpretation Comments WBC (test code = See_Comment [Automated 8189-2) message] The sy stem which generated this result transmitted reference range : 4.30 - 11.10 10*3/?L. The reference range was not used to interpret this result as normal/abnormal . RBC (test code = See_Comment [Automated 889-4) message] The sy stem which generated this [...] RDW-SD (test code = 43.1 fL 39-49.9 57088-9) RDW-CV (test code = 13.2 % 12-15.5 788-0) PLT (test code = See_Comment [Automated 777-3) message] The sy stem which generated this result transmitted reference range : 166 - 358 10*3/ ?L. The reference r david was not used to interpret this result as normal/abnormal . MPV (test code = 9.5 fL 9.5-12.9 19176-1) NRBC/100 WBC (test See_Comment [Automat ed code = 4430287091) message] The system which generated this result transmitted reference range : 0.0 - 10.0 /100 WBCs. The refer ence range was not u sed to interpret th is result as normal/abnormal . NRBC x10^3 (test code See_Comment [Auto mated = 2397672316) message] The s ystem which generated this result transmitted reference range : 10*3/?L. The reference range was not used to interpret this result as normal/abnormal . GRAN MAT (NEUT) % 57.8 % (test code = 770-8) IMM GRAN % (test code 0.20 % = 1316921469) LYMPH % (test code = 30.8 % 736-9) MONO % (test code = 5.1 % 5905-5) EOS % (test code = 5.6 % 713-8) BASO % (test code = 0.5 % 706-2) GRAN MAT x10^3(ANC) 3.61 10*3/uL 1.88-7.09 (test code = 6108694516) IMM GRAN x10^3 (test 0-0.06 code = 7133499706) LYMPH x10^3 (test code 1.92 10*3/uL 1.32-3.29 = 731-0) MONO x10^3 (test code 0.32 10*3/uL 0.33-0.92 L = 742-7) EOS x10^3 (test code = 0.35 10*3/uL 0.03-0.39 711-2) BASO x10^3 (test code 0.03 10*3/uL 0.01-0.07 = 704-7) Lab Interpretation Abnormal (test code = 28936-7) [facility] [id number] 17:27:00 Test Item Value Reference Range Interpretation Comments POCT PREG (test code = 1605) negative On board controls acceptable with present C Line (test code = 3574) POCT PREG LOT # (test code = 3575) [id number] POCT PREG TEST DATE (test code = 3576) Lab Interpretation (test code = Normal 22762-6) [facility] 12:45:21 Test Item Value Reference Range Interpretation Comments LIPASE (test code = 8892861261) 41 U/L 0-220 Lab Interpretation (test code = Normal 76594-0) [facility] [id number] 10:57:00 Test Item Value Reference Range Interpretation Comments POCT PREG (test code = 1605) Negative On board controls acceptable with Present C Line (test code = 3574) POCT PREG LOT # (test code = 3575) [id number] POCT PREG TEST DATE (test 03/12/2023 code = 3576) Lab Interpretation (test code = Normal 94952-3) [facility] (NA, K, CL, CO2, GLUCOSE, BUN, CREATININE, CA)2022-01-18 10:56:51 Test Item Value Reference Range Interpretation Comments NA (test code = 137 mmol/L 135-145 7044805930) K (test code = 4.6 mmol/L 3.5-5 Slight 5436486383) hemolysis CL (test code = 108 mmol/L 98-108 7425527873) CO2 TOTAL (test code 22 mmol/L 23-31 L = 4745287941) AGAP (test code = 2-16 8381483805) BUN (test code = 11 mg/dL 7-23 Slight 6812580065) hemolysis GLUCOSE (test code = 83 mg/dL 70-110 5102626556) CREATININE (test code 0.68 mg/dL 0.5-1.04 = 0564248069) CALCIUM (test code = 8.8 mg/dL 8.6-10.6 6460219452) eGFR (test code = mL/min/1.73m2 2605671168) WESLEY (test code = WESLEY) Association of [...] tests). Lab Interpretation Abnormal (test code = 08395-6) [facility] (ALB,T.PRO,BILI T,BU/BC,ALT,AST,ALK PHOS)2022-01-18 10:56:51 Test Item Value Reference Range Interpretation Comments TOTAL BILI (test code = 2856355020) 0.6 mg/dL 0.1-1.1 BILI UNCON (test code = 1314436838) 0.1 mg/dL 0.1-1.1 BILI CONJ (test code = 2839345898) 0.0 mg/dL 0-0.3 T PROTEIN (test code = 0900666028) 8.6 g/dL 6.3-8.2 H ALBUMIN (test code = 3603720994) 5.1 g/dL 3.5-5 H ALK PHOS (test code = 6215403332) 79 U/L 34-122 ALTv (test code = 1742-6) 117 U/L 5-35 H AST(SGOT) (test code = 6537415237) 163 U/L 13-40 H Lab Interpretation (test code = Abnormal 52888-3) [facility], [id number] 10:54:25 Test Item Value Reference Range Interpretation Comments PREG SERUM (test code Negative = 0592485375) WESLEY (test code = WESLEY) Less than 10 IU/L. ?If low titer or ectopic is suspected, resubmit specimen in 48-72 hours. [facility] WITH [id number] 10:40:49 Test Item Value Reference Range Interpretation Comments WBC (test code = See_Comment [Automated 8890-2) message] The sy stem which generated this result transmitted reference range : 4.30 - 11.10 10*3/?L. The reference range was not used to interpret this result as normal/abnormal . RBC (test code = See_Comment [Automated 489-8) message] The sy stem which generated this [...] RDW-SD (test code = 45.3 fL 39-49.9 66250-7) RDW-CV (test code = 14.5 % 12-15.5 788-0) PLT (test code = See_Comment [Automated 777-3) message] The sy stem which generated this result transmitted reference range : 166 - 358 10*3/ ?L. The reference r david was not used to interpret this result as normal/abnormal . MPV (test code = 9.5 fL 9.5-12.9 78043-9) NRBC/100 WBC (test See_Comment [Automat ed code = 5731755189) message] The system which generated this result transmitted reference range : 0.0 - 10.0 /100 WBCs. The refer ence range was not u sed to interpret th is result as normal/abnormal . NRBC x10^3 (test code See_Comment [Auto mated = 8838302176) message] The s ystem which generated this result transmitted reference range : 10*3/?L. The reference range was not used to interpret this result as normal/abnormal . GRAN MAT (NEUT) % 47.6 % (test code = 770-8) IMM GRAN % (test code 0.60 % = 1458133599) LYMPH % (test code = 39.9 % 736-9) MONO % (test code = 5.9 % 5905-5) EOS % (test code = 5.3 % 713-8) BASO % (test code = 0.7 % 706-2) GRAN MAT x10^3(ANC) 4.45 10*3/uL 1.88-7.09 (test code = 6506000550) IMM GRAN x10^3 (test 0.06 10*3/uL 0-0.06 code = 3269623599) LYMPH x10^3 (test code 3.74 10*3/uL 1.32-3.29 H = 731-0) MONO x10^3 (test code 0.55 10*3/uL 0.33-0.92 = 742-7) EOS x10^3 (test code = 0.50 10*3/uL 0.03-0.39 H 711-2) BASO x10^3 (test code 0.07 10*3/uL 0.01-0.07 = 704-7) Lab Interpretation Abnormal (test code = 97602-2) [facility] [id number] 18:31:00 Test Item Value Reference Range Interpretation Comments POCT PREG (test code = 1605) Negative On board controls acceptable with C Yes Line (test code = 3574) POCT PREG LOT # (test code = 3575) POCT PREG TEST DATE (test code = 3576) [facility] [id number] 18:31:00 Test Item Value Reference Range Interpretation [...] code = 3257) Trace Negative - Negative [facility]"
[2022-12-01 03:57] LABS: Absolute Lymphocytes (CBC) 2.3 K/uL (0.7-4.9); Hematocrit 40.8 % (36.0-45.0); Lymphocytes % 32.7 % (15.3-44.8); MCV 86.2 fL (80-100); MPV 7.5 fL (7.6-11.3); RBC Red Blood Cell Count 4.73 M/uL (3.86-4.86)
[2022-12-01 04:03] LABS: Specific Gravity 1.022 (1.005-1.030); Urine Bacteria None Seen /HPF (<20); Urine Bilirubin NEGATIVE (Negative); Urine Blood Trace (Negative); Urine Clarity Turbid (Clear); Urine Color Light-Yellow (Yellow); Urine Glucose NEGATIVE (Negative); Urine Mucus Slight /HPF (None Seen); Urine Protein NEGATIVE (Negative); Urine Urobilinogen Normal (Normal)
[2022-12-01] MEDS ORDERED: FAMOTIDINE 20 MG/2 ML VIAL IV ONE (04:07)
[2022-12-01] MEDS ORDERED: ONDANSETRON 4 MG/2 ML VIAL ONE ×3 (04:07→12:27)
[2022-12-01] MEDS ORDERED: NA CHLORIDE 0.9% 1,000 ML ONE (04:07)
[2022-12-01 04:32] LABS: Bilirubin Total 0.2 mg/dL (0.2-1.0); Potassium 3.3 mEq/L (3.5-5.1); Protein, Total 7.9 g/dL (6.4-8.2)
--- NOTE | 2022-12-01 05:41 | ER ---
Nurse's Notes [facility] Name: Natanael Dyson Age: 27 yrs Sex: Female : 1995 Arrival Date: 12/01/2022 Time: 02:35 Bed 18 Private MD: Diagnosis: Epigastric abdominal tenderness;Cholecystitis, unspecified;Other cholelithiasis with obstruction Presentation: 12/01 02:52 Chief complaint: Patient states: C/o of left upper abdominal pain. Vomiting x 3 days. pf1 Fever x 3 days. Chief complaint:. Coronavirus screen: Vaccine status: Patient reports being unvaccinated. Ebola Screen: No symptoms or risks identified at this time. Initial Sepsis Screen: Does the patient meet any 2 criteria? No. Patient's initial sepsis screen is negative. Risk Assessment: Do you want to hurt yourself or someone else? Patient reports no desire to harm self or others. Onset of symptoms was November 28, 2022. 02:52 Method Of Arrival: Ambulatory pf1 02:52 Acuity: THIERNO 3 pf1 05:56 Initial Sepsis Screen: Does the patient have a suspected source of infection? No. kl Patient's initial sepsis screen is negative. Triage Assessment: 02:55 General: Appears uncomfortable, well nourished, Behavior is calm. pf1 Historical: - PMHx: 02:55 Kidney stone; pf1 - Immunization history:: Adult Immunizations not up to date. - Social history:: Smoking status: Patient denies any tobacco usage or history of. Screenin:07 [facility] ED Fall Risk Assessment (Adult) History of falling in the last 3 months, kl including since admission No falls in past 3 months (0 pts) Confusion or Disorientation No (0 pts) Intoxicated or Sedated No (0 pts) Impaired Gait No (0 pts) Mobility Assist Device Used No (0 pt) Altered Elimination No (0 pt) Score/Fall Risk Level 0 - 2 = Low Risk Oriented to surroundings, Maintained a safe environment. Abuse screen: Denies threats or abuse. Nutritional screening: No deficits noted. Tuberculosis screening: No symptoms or risk factors identified. Assessment: 03:26 General: Appears uncomfortable, Behavior is calm, cooperative. Pain: Complains of pain kl in left upper quadrant Pain currently is 8 out of 10 on a pain scale. Pain began gradually, 2 hours ago. Neuro: No deficits noted. Cardiovascular: No deficits noted. Respiratory: No deficits noted. Airway is patent Trachea midline Respiratory effort is even, unlabored, Respiratory pattern is regular, symmetrical. GI: Bowel sounds present X 4 quads. Abd is soft Abdomen is tender to palpation X 4 quads. Reports nausea. 06:16 Reassessment: Patient states feeling better. Patient states symptoms have improved. Vital Signs: 02:52 BP 133 / 90; Pulse 119; Resp 18; Temp 99; Pulse Ox 100% ; Weight 68.95 kg; Height 5 ft. pf1 1 in. ; Pain 9/10; 04:07 BP 130 / 89; Pulse 79; Resp 16; Pulse Ox 99% on R/A; kl 06:16 BP 119 / 78; Pulse 80; Resp 15; Pulse Ox 99% on R/A; kl 02:52 Body Mass Index 28.72 (68.95 kg, 154.94 cm) pf1 02:52 Pain Scale: Adult pf1 ED Course: 02:36 Patient arrived in ED. [email or web address] 02:52 Justin Estrella MD is Attending Physician. rudolph 02:55 Triage completed. pf1 03:26 Abdomen Limited US In Process Unspecified. EDMS 03:30 Inserted saline lock: 22 gauge in right forearm, using aseptic technique. Blood kl collected. 03:35 Patient has correct armband on for positive identification. Placed in gown. Bed in low kl position. Side rails up X2. 05:15 CT Abd/Pelvis - IV Contrast Only In Process Unspecified. EDMS 05:39 Edgar Lora MD is Hospitalizing Provider. rudolph 05:56 No provider procedures requiring assistance completed. Patient admitted, IV remains in kl place. Administered Medications: 04:00 Drug: Ondansetron IVP 4 mg Route: IVP; Site: right forearm; kl 04:05 Drug: NS 0.9% IV 1000 ml Route: IV; Rate: 1 bolus; Site: right forearm; kl 04:05 Drug: Famotidine IVP 20 mg Route: IVP; Site: right forearm; kl 05:40 Drug: morphine IVP or IV 4 mg Route: IVP; Infused Over: 4 mins; Site: right forearm; kl 05:41 Not Given (Duplicate Order): NS 0.9% IV 1000 ml IV at 1 bolus Per protocol; 1000 mL kl bolus Outcome: 05:40 Decision to Hospitalize by Provider. rudolph 05:56 Admitted to Med/surg via wheelchair, room 216. 05:56 Condition: improved 05:56 Discharge instructions given to patient, Instructed on the need for admit, Demonstrated understanding of instructions. 06:17 Patient left the ED. papi Signatures: Dispatcher [employer] EDCari Holland RN RN kl Anderson, Corey, MD MD cha Jeffries, Jennifer jj6 Finley, Pamala, RN RN pf1 Corrections: (The following items were deleted from the chart) 02:56 02:55 PMHx: UTI; pf1 pf1 02:56 02:55 PMHx: Asthma; pf1 pf1 02:56 02:55 PMHx: Migraine; pf1 pf1 02:56 02:55 PMHx: Carcinoma of breast; pf1 pf1 02:56 02:55 PMHx: Cerebrovascular accident; pf1 pf1 02:56 02:55 PSHx: tubal ligation; pf1 pf1 02:56 02:55 PSHx: section; pf1 pf1
--- NOTE | 2022-12-01 05:41 | EDPHYS ---
Physician Documentation [facility] Name: Natanael Dyson Age: 27 yrs Sex: Female : 1995 Arrival Date: 12/01/2022 Time: 02:35 Bed 18 Private MD: ED Physician Justin Estrella HPI: 12/01 04:33 This 27 yrs old Female presents to ER via Ambulatory with complaints of rudolph Abdominal Pain. 04:33 The patient presents with abdominal pain in the epigastric area, in the upper abdomen, rudolph abdominal distention in the upper abdomen. Onset: The symptoms/episode began/occurred 3 day(s) ago. The symptoms do not radiate. Associated signs and symptoms: none. The symptoms are described as crampy. Modifying factors: The symptoms are alleviated by nothing. Severity of pain: At its worst the pain was mild in the emergency department the pain is unchanged. The patient has not experienced similar symptoms in the past. Historical: - PMHx: 02:55 Kidney stone; pf1 - Immunization history:: Adult Immunizations not up to date. - Social history:: Smoking status: Patient denies any tobacco usage or history of. ROS: 04:34 Constitutional: Negative for fever, chills, and weight loss, Eyes: Negative for injury, rudolph pain, redness, and discharge, ENT: Negative for injury, pain, and discharge, Neck: Negative for injury, pain, and swelling, Cardiovascular: Negative for chest pain, palpitations, and edema, Respiratory: Negative for shortness of breath, cough, wheezing, and pleuritic chest pain, Back: Negative for injury and pain, : Negative for injury, bleeding, discharge, and swelling, MS/Extremity: Negative for injury and deformity, Skin: Negative for injury, rash, and discoloration, Neuro: Negative for headache, weakness, numbness, tingling, and seizure. 04:34 Abdomen/GI: Positive for abdominal pain, nausea, of the epigastric area, right upper quadrant and left upper quadrant. Exam: 04:34 Constitutional: This is a well developed, well nourished patient who is awake, alert, rudolph and in no acute distress. Head/Face: Normocephalic, atraumatic. Eyes: Pupils equal round and reactive to light, extra-ocular motions intact. Lids and lashes normal. Conjunctiva and sclera are non-icteric and not injected. Cornea within normal limits. Periorbital areas with no swelling, redness, or edema. ENT: Nares patent. No nasal discharge, no septal abnormalities noted. Tympanic membranes are normal and external auditory canals are clear. Oropharynx with no redness, swelling, or masses, exudates, or evidence of obstruction, uvula midline. Mucous membranes moist. Neck: Trachea midline, no thyromegaly or masses palpated, and no cervical lymphadenopathy. Supple, full range of motion without nuchal rigidity, or vertebral point tenderness. No Meningismus. Chest/axilla: Normal chest wall appearance and motion. Nontender with no deformity. No lesions are appreciated. Cardiovascular: Regular rate and rhythm with a normal S1 and S2. No gallops, murmurs, or rubs. Normal PMI, no JVD. No pulse deficits. Respiratory: Lungs have equal breath sounds bilaterally, clear to auscultation and percussion. No rales, rhonchi or wheezes noted. No increased work of breathing, no retractions or nasal flaring. Back: No spinal tenderness. No costovertebral tenderness. Full range of motion. Skin: Warm, dry with normal turgor. Normal color with no rashes, no lesions, and no evidence of cellulitis. MS/ Extremity: Pulses equal, no cyanosis. Neurovascular intact. Full, normal range of motion. Neuro: Awake and alert, GCS 15, oriented to person, place, time, and situation. Cranial nerves II-XII grossly intact. Motor strength 5/5 in all extremities. Sensory grossly intact. Cerebellar exam normal. Normal gait. Psych: Awake, alert, with orientation to person, place and time. Behavior, mood, and affect are within normal limits. 04:34 Abdomen/GI: Inspection: distension, that is mild, Bowel sounds: normal, Palpation: mild abdominal tenderness, moderate abdominal tenderness, in the epigastric area, right upper quadrant and left upper quadrant, Liver: no appreciated palpable abnormalities, Hernia: not appreciated. Vital Signs: 02:52 BP 133 / 90; Pulse 119; Resp 18; Temp 99; Pulse Ox 100% ; Weight 68.95 kg; Height 5 ft. pf1 1 in. ; Pain 9/10; 04:07 BP 130 / 89; Pulse 79; Resp 16; Pulse Ox 99% on R/A; kl 06:16 BP 119 / 78; Pulse 80; Resp 15; Pulse Ox 99% on R/A; kl 02:52 Body Mass Index 28.72 (68.95 kg, 154.94 cm) pf1 02:52 Pain Scale: Adult pf1 MDM: 03:09 Patient medically screened. [facility] 04:36 Differential diagnosis: bowel obstruction, cholecystitis, Cholelithiasis, rudolph diverticulitis, Mesenteric ischemia or infarction, non-specific abd pain, pancreatitis, Peptic Ulcer Disease, Ureterolithiasis, urinary tract infection. Data reviewed: vital signs, nurses notes, lab test result(s), EKG, radiologic studies, CT scan, ultrasound. Consideration of Admission/Observation Escalation of care including admission/observation considered. I considered the following discharge prescriptions or medication management in the emergency department Medications were administered in the Emergency Department. See MAR. Test considered but Not performed: Ultrasound GALLBLADDER. Care significantly affected by the following chronic conditions: KIDNEY STONES. Counseling: I had a detailed discussion with the patient and/or guardian regarding: the historical points, exam findings, and any diagnostic results supporting the discharge/admit diagnosis, lab results, radiology results, the need for outpatient follow up, for definitive care, a family practitioner, a general surgeon. 12/01 02:55 Order name: CBC with Diff; Complete Time: 04:30 [facility] 12/01 02:55 Order name: CMP; Complete Time: 04:34 [facility] 12/01 02:55 Order name: Lipase; Complete Time: 04:34 [facility] 12/01 02:55 Order name: Test, Urine; Complete Time: 04:30 [facility] 12/01 02:55 Order name: Urinalysis w/ reflexes; Complete Time: 04:30 [facility] 12/01 02:55 Order name: Abdomen Limited US [facility] 12/01 03:43 Order name: CT Abd/Pelvis - IV Contrast Only [facility] 12/01 02:55 Order name: IV Saline Lock; Complete Time: 04:23 [facility] 12/01 02:55 Order name: Labs collected and sent; Complete Time: 04:23 [facility] Administered Medications: 04:00 Drug: Ondansetron IVP 4 mg Route: IVP; Site: right forearm; kl 04:05 Drug: NS 0.9% IV 1000 ml Route: IV; Rate: 1 bolus; Site: right forearm; kl 04:05 Drug: Famotidine IVP 20 mg Route: IVP; Site: right forearm; kl 05:40 Drug: morphine IVP or IV 4 mg Route: IVP; Infused Over: 4 mins; Site: right forearm; kl 05:41 Not Given (Duplicate Order): NS 0.9% IV 1000 ml IV at 1 bolus Per protocol; 1000 mL kl bolus Disposition Summary: 12/01/22 05:40 Hospitalization Ordered Hospitalization Status: Observation rudolph Provider: Edgar Lora cha Location: Telemetry/MedSurg (observation) rudolph Condition: Stable rudolph Problem: new rudolph Symptoms: have improved rudolph Bed/Room Type: Standard rudolph Room Assignment: 214(12/01/22 05:49) cg Diagnosis - Epigastric abdominal tenderness rudolph - Cholecystitis, unspecified rudolph - Other cholelithiasis with obstruction rudolph Discharge Instructions: - Discharge Summary Sheet rudolph - Abdominal Pain, Adult rudolph - Biliary Colic, Adult rudolph - Abdominal Pain, Adult, Ilug-vo-Dnas rudolph Forms: - Medication Reconciliation Form rudolph - SBAR form rudolph Prescriptions: - ondansetron 4 mg Oral Tablet,disintegrating - take 2 tablet by ORAL route every 6 hours for 5 days; 20 tablet; Refills: 0, rudolph Product Selection Permitted - Pepcid 20 mg Oral Tablet - take 1 tablet by ORAL route every 12 hours for 10 days; 20 tablet; Refills: 0, [facility] Product Selection Permitted - dicyclomine 20 mg Oral Tablet - take 1 tablet by ORAL route 4 times per day; 28 tablet; Refills: 0, Product rudolph Selection Permitted Signatures: Dispatcher [employer] Cari Chang RN RN kl Anderson, Corey, MD MD cha Garcia, Cindy, RN RN cg Finley, Pamala, RN RN pf1 Corrections: (The following items were deleted from the chart) 02:56 02:55 PMHx: UTI; pf1 pf1 02:56 02:55 PMHx: Asthma; pf1 pf1 02:56 02:55 PMHx: Migraine; pf1 pf1 02:56 02:55 PMHx: Carcinoma of breast; pf1 pf1 02:56 02:55 PMHx: Cerebrovascular accident; pf1 pf1 02:56 02:55 PSHx: tubal ligation; pf1 pf1 02:56 02:55 PSHx: section; pf1 pf1 05:49 05:40 rudolph cg
[2022-12-01] MEDS ORDERED: MORPHINE 4 MG/ML SYR ONE (05:46)
[2022-12-01] MEDS ORDERED: NA CHLORIDE 0.9% 100 ML ONE (06:09)
[2022-12-01] MEDS ORDERED: PIPERACIL/TAZO 3.375 GM VIAL IV ONE (06:10)
[2022-12-01 06:42] VITALS: BMI 28.7
[2022-12-01] MEDS ORDERED: MORPHINE 4 MG/ML SYR IV PRN (06:42)
[2022-12-01] MEDS ORDERED: ONDANSETRON 4 MG/2 ML VIAL IV PRN (06:42)
[2022-12-01] MEDS ORDERED: ACETAMINOPHEN 500 MG TAB PO PRN (06:42)
[2022-12-01] MEDS ORDERED: LORazepam 2 MG/ML VIAL IV ONE (07:26)
[2022-12-01] MEDS ORDERED: KCL 20 MEQ/100 mL IVPB 20 MEQ/100 ML BAG IV SCH (09:00)
[2022-12-01] MEDS ORDERED: FAMOTIDINE 20 MG/2 ML VIAL IV SCH (09:00)
[2022-12-01] MEDS ORDERED: NA CHLORIDE 0.9% 250 ML ONE ×2 (09:23→09:25)
[2022-12-01] MEDS ORDERED: Ringers Lactate 1,000 ML IV ONE (09:39)
[2022-12-01] MEDS: CEFOXITIN SODIUM 1 GM/VIAL ONE ×2 (10:08→10:15)
--- NOTE | 2022-12-01 10:08 | P.HP ---
Date of Service: 12/01/22 Chief complaint: Abdominal pain History of present Illness: Patient is a 27-year-old female who comes in with acute onset of postprandial epigastric abdominal pain going to the right side associated with nausea, vomiting, bloating, belching and heartburn. Patient denies any diarrhea or constipation. Patient denies any blood in her stool. Patient denies any dysuria or hematuria. Patient denies any sore throat, runny nose, cough, headaches, dizziness, or chest pain. Patient does occasionally have fever. Review of systems: Otherwise unremarkable Past medical history: Kidney stone, severe anxiety on multiple medications in the past Past surgical history: Negative Allergies: Reviewed Social history: Patient does not smoke or drink alcohol Family history: Noncontributory Vital signs: Stable, afebrile currently Physical exam: Awake, alert and oriented x3 Head and neck: No evidence of icterus, no neck masses, no JVD, throat clear and neck supple Chest: Clear Heart: S1-S2 Abdomen: Soft, nondistended, positive bowel sounds and tenderness in the right upper quadrant with minimal rebound, no rigidity or guarding Extremity: Neurovascular intact, nontender Neuro: Nonfocal Diagnostic data: CT of the abdomen and ultrasound reviewed with the radiologistgallstone in the neck of the gallbladder with borderline thickening of the gallbladder wall. LFTs are within normal limits white count is normal Assessment: Acute cholecystitis and cholelithiasis the patient with a history of severe anxiety Plan/recommendation: We will consult the hospitalist to manage her anxiety issues. N.p.o., IV fluids, IV antibiotics and to the OR for laparoscopic cholecystectomy, possible open. Patient understands risk, benefits and alternatives and agrees to procedure. CC:
[2022-12-01] MEDS ORDERED: propofoL 200 MG/20 ML VIAL IV ONE (10:09)
[2022-12-01] MEDS ORDERED: MIDAZOLAM HCL 2 MG/2 ML INJ ONE (10:09)
[2022-12-01] MEDS ORDERED: FENTANYL CITR 100 MCG/2 ML ONE ×2 (10:09→10:43)
[2022-12-01] MEDS ORDERED: ROCURONIUM 50 MG/5 ML VIAL IV ONE (10:09)
[2022-12-01] MEDS ORDERED: dexAMETHasone 10 MG/ML VIAL ONE (10:51)
--- NOTE | 2022-12-01 10:51 | RAD REPORT ---
EXAM DESCRIPTION: CT - Abdomen Pelvis W Contrast - 12/01/2022 5:14 am CLINICAL HISTORY: The patient is 27 years old and is Female; ABD PAIN TECHNIQUE: Axial computed tomography images of the abdomen and pelvis with intravenous contrast. S agittal and coronal reformatted images were created and reviewed. This CT exam was performed using one or more of the following dose reduction techniques: automated exposure control, adjustment of t he mA and/or kV according to patient size, and/or use of iterative reconstruction technique. COMPARISON: CT abdomen pelvis November 17, 2022. FINDINGS: Lung bases: Unremarkable. No mass. No consolidation. ABDOMEN: Liver: Unremarkable. No mass. Gallbladder and bile ducts: Unremarkable. No calcified stones. No ductal dilation. Pancreas: No findings to suggest acute pancreatitis. No mass visualized. No ductal dilation. Spleen: Unremarkable. No splenomegaly. Adrenals: Unremarkable. No mass. Kidneys and ureters: Punctate right nephrolithiasis. No hydronephrosis or ureter stone. Left kidney is unremarkable. Stomach and bowel: No bowel dilatation or obstruction. No bowel wall thickening. PELVIS: Appendix: The visualized appendix is normal. No pericecal inflammation to suggest acute appendici tis. Bladder: Unremarkable. No mass. Reproductive: 1.9 cm right ovarian corpus luteum. Left ovary and uterus are unremarkable. ABDOMEN and PELVIS: Intraperitoneal space: Unremarkable. No free air. No significant fluid collection. Bones/joints: No acute fracture. No dislocation. Soft tissues: Unremarkable. Vasculature: Unremarkable. No abdominal aortic aneurysm. Lymph nodes: No pathologically enlarged lymph nodes. IMPRESSION: 1. Punctate right nephrolithiasis. No hydronephrosis or ureter stone. 2. 1.9 cm right ovarian corpus luteum. No follow-up imaging recommended. Electronically signed by: Anusha Pratt MD 12/01/2022 6:49 AM CDT Due to temporary technical issues with the PACS/Fluency reporting system, reports are being signed by the in house radiologists without review as a courtesy to insure prompt reporting. The interpreting radiologist is fully responsible for the content of the report.
[2022-12-01] MEDS ORDERED: SUCCINYLCHOLINE 20 MG/ML (10 ML) IV ONE (10:54)
--- NOTE | 2022-12-01 11:10 | RAD REPORT ---
EXAM DESCRIPTION: US - Abdomen Exam Limited - 12/01/2022 3:24 am COMPARISON: None. CLINICAL HISTORY: HS MAIN ABD PAIN TECHNIQUE: Grayscale and color Doppler images of the gallbladder are provided for evaluation. FINDINGS: The gallbladder demonstrates stones near the fundus and gallbladder neck. Gallbladder wa ll thickness measures 3 mm. No intrahepatic biliary dilatation. The common bile duct measures 3 mm. Visualized portions of the liver are unremarkable. IMPRESSION: Cholelithiasis. Mild gallbladder wall thickening may be due to decompression or cholecys titis. Electronically signed by: Amos March MD 12/01/2022 4:56 AM CDT Due to temporary technical issues with the PACS/Fluency reporting system, reports are being signed by the in house radiologists without review as a courtesy to insure prompt reporting. The interpreting radiologist is fully responsible for the content of the report.
--- NOTE | 2022-12-01 11:26 | P.OP ---
Date of Service: 12/01/22 Preop diagnosis: Acute cholecystitis and cholelithiasis Postop diagnosis: Same Procedure performed: Laparoscopic cholecystectomy Surgeon: Edgar Lora MD Electronic Equipment Set Up Operator: Jessica CROOKS Estimated blood loss: Minimal Specimen: Gallbladder Findings: As above Anesthesia: General Complications: None Drains: None Fluids and blood products: Nonapplicable Disposition: Recovery room Operative note: Patient brought to the OR and placed in supine position. General anesthesia begun. Patient prepped and draped in the usual sterile fashion. Marcaine 0.5% infiltrated locally. 15 blade used to make a 1 cm supraumbilical midline incision. Subcutaneous tissue divided. Bleeding controlled with cautery. Fascia identified and divided. #1 Vicryl stay suture placed. Peritoneal cavity entered with sharp and blunt dissection. 12 mm trocar placed into the peritoneal cavity under direct vision. Pneumoperitoneum established. And then three 5 mm trocars placed under direct vision. 1 trocar placed in the epigastric region just under midline and 2 trocars placed in the right subcostal region. Laparoscopy revealed a slightly distended gallbladder with thick wall consistent with acute cholecystitis fundus identified and retracted superiorly. Infundibulum identified and retracted inferolaterally. Cystic duct and cystic artery clearly identified and clips placed and both structures divided. The gallbladder was somewhat intrahepatic. Cautery was used to remove the gallbladder from the liver bed. There was venous bleeding noted on the midportion of the liver bed. This was controlled with cautery. Gallbladder was retrieved to the umbilicus via Endo Catch bag. Right upper quadrant was irrigated effluent was clear and there was no evidence of any bleeding or bile leakage appreciated. However, was concerned about the venous bleeding on the liver bed. Therefore we placed Sherif and Surgicel to reinforce the cauterization of the tissue. There was no evidence of bleeding seen after careful watching of that area. Subsequently all trocars removed under direct vision. Stay sutures tied to each other to reapproximate the fascial defect. Subcutaneous wounds irrigated and bleeding controlled cautery. 3-O chromic used to approximate subcutaneous tissue and close skin. Sterile dressing applied and patient awakened. Patient taken to recovery room in good general condition. CC:
[2022-12-01] MEDS ORDERED: LORAZEPAM 1 MG TABLET PO PRN (11:29)
[2022-12-01] MEDS ORDERED: POTASSIUM 25 MEQ EFFERV TAB PO ONE (11:40)
[2022-12-01] MEDS: FENTANYL CITR 100 MCG/2 ML ONE ×4 (11:49→12:14)
[2022-12-01] MEDS ORDERED: HYDROMORPHONE HCL 1 MG/ML INJ ONE (12:39)
[2022-12-01] MEDS: Ringers Lactate 1,000 ML IV SCH ×2 (13:02→21:38)
[2022-12-01] MEDS: PIPER TAZO 3.375 GM in NA CHLORIDE 0.9% 100 ML IV SCH ×2 (13:02→21:42)
--- NOTE | 2022-12-01 14:23 | P.CNS ---
Date of Consult: 12/01/22 Reason for Consult: Medical Management Requesting Physician: Edgar Lora Chief Complaint: Abdominal Pain History of Present Illness: Ms. Natanael Dyson is a 27 year old female who has a past medical history of bipolar disorder, ADHD, and oppositional defiant disorder who was admitted to the [facility] under Dr. Lora's service for acute cholecystitis. Upon presentation, her abdominal ultrasound revealed, "cholelithiasis. Mild gallbladder wall thickening may be due to decompression or cholecystitis." Her CT abdomen/pelvis revealed, "1. Punctate right nephrolithiasis. No hydronephrosis or ureter stone. 2. 1.9 cm right ovarian corpus luteum. No follow-up imaging recommended." She underwent a laparoscopic cholecystectomy earlier today. Prior to presentation, she had experienced acuteonset abdominal pain, nausea, and vomiting. Currently, her primary symptom is abdominal pain and nausea. She denies any fevers, chills, chest pain, palpitations, shortness of breath, hematochezia, melena, dysuria, or any other symptoms. Internal Medicine was consulted for medical management. Allergies ketorolac [From Toradol] Allergy (Verified 12/01/22 06:33) Hives/Rash metoclopramide [From Reglan] Allergy (Verified 12/01/22 06:33) Hives/Rash prochlorperazine [From Compazine] Allergy (Verified 12/01/22 06:33) Hives/Rash Home medications list reviewed: No (Does not know meds) Home Medications: NK [No Home Meds] 12/01/22 - Past Medical/Surgical History -: Bipolar Disorder -: Oppositional Defiant Disorder -: ADHD -: -: tubal ligation - Social History Smoking Status: Unknown if ever smoked Place of Residence: Home Review of Systems 10-point ROS is otherwise unremarkable Gastrointestinal: Nausea, Vomiting, Abdominal Pain Physical Examination Temp Pulse Resp BP Pulse Ox 97 F 71 18 125/69 99 12/01/22 12:37 12/01/22 12:37 12/01/22 12:37 12/01/22 12:37 12/01/22 08:00 General: Alert, In no apparent distress, Oriented x3 HEENT: Atraumatic, Mucous membr. moist/pink, Sclerae nonicteric Neck: JVD not distended Respiratory: Clear to auscultation bilaterally, Normal air movement Cardiovascular: No edema, Regular rate/rhythm, Normal S1 S2, No gallops, No rubs, No murmurs Gastrointestinal: Hypoactive, Soft and benign, Non-distended, No rebound, No guarding, Tenderness (RUQ) Musculoskeletal: No clubbing Integumentary: No rashes Neurological: Normal speech, Normal affect Laboratory Data (last 24 hrs) 12/01/22 03:45: Sodium 139, Potassium 3.3 L, BUN 7, Creatinine 0.89, Glucose 103, Total Bilirubin 0.2, AST 23, ALT 26, Alkaline Phosphatase 89, Lipase 57 12/01/22 03:45: WBC 7.00, Hgb 13.6, Hct 40.8, Plt Count 381 Conclusions/Impression: DIAGNOSES: # Cholelithiasis with Acute Cholecystitis # Punctate Right Nephrolithiasis # Right Ovarian Corpus Luteum (1.9 cm) # Bipolar Disorder # ADHD # Oppositional Defiant Disorder # Microscopic Hematuria - likely due to Nephrolithiasis RECOMMENDATIONS: 1. Continue antibiotics for now 2. PRN pain control for post-operative pain 3. She does not know her home medications, but states that she is on "too many," and would "like to start fresh." - She states that she takes lorazepam 1 mg PO daily at home; however, on her PDMP review, she has never received a prescription for lorazepam - She was asked to have her take a picture of the bottle, which she agreed. However, she states that he is unable to locate the bottle 4. Benzodiazepines can be utilized for short-term severe panic attacks - If considering long-term control, consider starting escitalopram with PRN hydroxyzine (in place of PRN lorazepam) 5. Microscopic hematuria needs to be followed up with PCP 6. Consider Psychiatry consultation for additional recommendations. Thank you for this consultation. These recommendations were discussed with Dr. Lora. Internal Medicine will continue to follow along while hospitalized. Alfonso Sanders M.D.
[2022-12-01] MEDS: HYDROMORPHONE HCL 1 MG/ML INJ IV PRN ×3 (15:48→21:38)
[2022-12-01] MEDS: ESCITALOPRAM 20 MG TAB PO SCH (17:03)
[2022-12-01] MEDS: ONDANSETRON 4 MG/2 ML VIAL IV PRN (18:03)
[2022-12-01] MEDS: hydrOXYzine HCL 25 MG TAB PO PRN (21:45)
[2022-12-01] MEDS ORDERED: POTASSIUM CL SA 10 MEQ TAB PO ONE (22:00)
[2022-12-02] MEDS: HYDROCODONE/APAP 7.5/325 MG TAB PO PRN ×2 (03:36→22:42)
[2022-12-02] MEDS: PIPER TAZO 3.375 GM in NA CHLORIDE 0.9% 100 ML IV SCH ×3 (05:47→22:43)
[2022-12-02] MEDS: HYDROMORPHONE HCL 1 MG/ML INJ IV PRN ×6 (05:48→23:47)
[2022-12-02] MEDS: Ringers Lactate 1,000 ML IV SCH ×2 (05:56→15:39)
[2022-12-02 06:37] LABS: Absolute Lymphocytes (CBC) 1.8 K/uL (0.7-4.9); Lymphocytes % 16.5 % (15.3-44.8); MPV 7.8 fL (7.6-11.3); RBC Red Blood Cell Count 3.84 M/uL (3.86-4.86)
[2022-12-02 07:17] LABS: Potassium 3.6 mEq/L (3.5-5.1)
[2022-12-02] MEDS: ESCITALOPRAM 20 MG TAB PO SCH (07:49)
[2022-12-02] MEDS: ONDANSETRON 4 MG/2 ML VIAL IV PRN ×2 (09:23→19:42)
[2022-12-02] MEDS: PROMETHAZINE INJ 25 MG/ML AMP IV PRN ×3 (10:35→23:11)
--- NOTE | 2022-12-02 11:06 | PN ---
Date of Progress Note: 12/02/2022 Subjective: The patient is awake head. Complaining nausea, has not tolerated liquids yet. Has not vomited. Objective: Vital Signs: Stable. She is afebrile. Abdomen: Benign. Laboratory Data: Her white count is 11,000 with a slight left shift. Chemistry is essentially withi n normal limits. Assessment: Status post laparoscopic cholecystectomy for acute cholecystitis and cholelithiasis. Recommendations: We will keep the patient here today for empiric pain management as well as nausea m anagement and I encouraged p.o. intake, ambulation, and incentive spirometry. Antibiotics as ordered . /MODL Voice ID: [id number] Report ID: [id number]
--- NOTE | 2022-12-02 11:34 | RAD REPORT ---
EXAM DESCRIPTION: RAD - Abdomen 1 View (KUB) - 12/02/2022 11:14 am CLINICAL HISTORY: eval for post-op ileus COMPARISON: Abdomen Pelvis W Contrast dated 12/01/2022 FINDINGS: Nonobstructive bowel gas pattern. No acute osseous abnormality.Visualized lungs are unrema rkable.No abnormal calcifications. Surgical clips in right upper quadrant. IMPRESSION: Paucity of bowel gas without evidence of bowel obstruction.
[2022-12-02] MEDS: ACETAMINOPHEN 325 MG TABLET PO PRN (15:39)
--- NOTE | 2022-12-02 17:10 | P.PN ---
Subjective Date of Service: 12/02/22 Primary Care Provider: None Chief Complaint: Abdominal Pain POD # 1 from laparoscopic cholecystectomy. She reports that her pain is well- controlled, but she continues to experience nausea. She denies any chest pain, palpitations, or shortness of breath. Review of Systems 10-point ROS is otherwise unremarkable Gastrointestinal: Nausea, Abdominal Pain Physical Examination - Vital Signs Temperature: 99.1 F Blood Pressure: 116/78 Pulse: 91 Respirations: 16 Pulse Ox (%): 97 Assessment And Plan - Plan Physical Exam: General: Alert, In no apparent distress, Oriented x3 HEENT: Atraumatic, Mucous membr. moist/pink, Sclerae nonicteric Respiratory: Clear to auscultation bilaterally, Normal air movement Cardiovascular: No edema, Regular rate/rhythm, No murmurs Gastrointestinal: Hypoactive, Soft and benign, Non-distended, No rebound, No guarding, Tenderness (RUQ) Musculoskeletal: No clubbing Integumentary: No rashes Neurological: Normal speech, Normal affect DIAGNOSES: # Cholelithiasis with Acute Cholecystitis # Punctate Right Nephrolithiasis # Right Ovarian Corpus Luteum (1.9 cm) # Bipolar Disorder # ADHD # Oppositional Defiant Disorder # Microscopic Hematuria - likely due to Nephrolithiasis RECOMMENDATIONS: 1. Continue antibiotics 2. PRN pain control for post-operative pain 3. Benzodiazepines can be utilized for short-term severe panic attacks - If considering long-term control, consider starting escitalopram with PRN hydroxyzine (in place of PRN lorazepam) 4. Can add PRN prochlorperazine for nausea if ondansetron is not helping 5. Microscopic hematuria needs to be followed up with PCP 6. Consider Psychiatry consultation for additional recommendations. Thank you for this consultation. These recommendations were discussed with Dr. Lora. Internal Medicine will continue to follow along while hospitalized. Alfonso Sanders M.D.
[2022-12-02] MEDS: hydrOXYzine HCL 25 MG TAB PO PRN (23:11)
[2022-12-03] MEDS ORDERED: hydrOXYzine HCL 25 MG TAB PO ONE (00:40)
[2022-12-03] MEDS: Ringers Lactate 1,000 ML IV SCH ×2 (00:49→09:48)
[2022-12-03] MEDS: HYDROMORPHONE HCL 1 MG/ML INJ IV PRN ×6 (02:55→21:14)
[2022-12-03 03:07] LABS: Absolute Lymphocytes (CBC) 1.6 K/uL (0.7-4.9); Hematocrit 30.6 % (36.0-45.0); MCV 85.8 fL (80-100); MPV 7.8 fL (7.6-11.3); RBC Red Blood Cell Count 3.57 M/uL (3.86-4.86)
[2022-12-03 03:16] LABS: ALT/SGPT 126 U/L (13-56); AST/SGOT 145 U/L (15-37); Albumin 2.8 g/dL (3.4-5.0); Alkaline Phosphatase 87 U/L (45-117); Bicarbonate 29 mEq/L (21-32); Bilirubin Direct 0.5 mg/dL (0-0.2); Bilirubin Indirect, Calculated 0.4 mg/dL (0.2-0.8); Bilirubin Total 0.9 mg/dL (0.2-1.0); Glomerular Filtration Rate 102 ml/min (=/>90); Glucose Level 95 mg/dL (74-106); Potassium 3.1 mEq/L (3.5-5.1); Protein, Total 6.1 g/dL (6.4-8.2); Sodium Level 137 mEq/L (136-145)
[2022-12-03 03:18] LABS: BUN Blood Urea Nitrogen < 3 mg/dL (7-18)
[2022-12-03] MEDS: PIPER TAZO 3.375 GM in NA CHLORIDE 0.9% 100 ML IV SCH ×3 (05:31→21:10)
[2022-12-03] MEDS: HYDROCODONE/APAP 7.5/325 MG TAB PO PRN (05:31)
[2022-12-03] MEDS: PROMETHAZINE INJ 25 MG/ML AMP IV PRN ×3 (05:32→21:11)
--- NOTE | 2022-12-03 06:52 | P.PN ---
Date of Service: 12/03/22 Subjective: ROS: Physical Exam: GEN: Alert, oriented, NAD HEENT: Normal conjunctiva, sclera anicteric CV: Regular rate & rhythm, no edema Pulm: Nonlabored respiraitons on room air ABD: Soft, RUQ tenderness, nondistended MSK: No joint tenderness Integumentary: No rashes Neuro: Normal speech, normal affect vitals reviewed Problem List: 1. Cholelithiasis with Acute Cholecystitis 2. Punctate Right Nephrolithiasis 3. Right Ovarian Corpus Luteum (1.9 cm) 4. Bipolar Disorder 5. ADHD 6. Oppositional Defiant Disorder 7. Microscopic Hematuria - likely due to Nephrolithiasis PLAN 1. Continue Zosyn 2. PRN pain medication 3. Benzodiazepines can be utilized for short-term severe panic attacks - If considering long-term control, consider starting escitalopram with PRN hydroxyzine (in place of PRN lorazepam) 4. Can add PRN prochlorperazine for nausea if ondansetron is not helping 5. Microscopic hematuria needs to be followed up with PCP 6. Consider Psychiatry consultation for additional recommendations.
[2022-12-03] MEDS: ACETAMINOPHEN 325 MG TABLET PO PRN (07:39)
[2022-12-03] MEDS: ESCITALOPRAM 20 MG TAB PO SCH (07:54)
[2022-12-03] MEDS ORDERED: POTASSIUM CL SA 10 MEQ TAB PO ONE ×2 (09:00→21:00)
--- NOTE | 2022-12-03 11:24 | PN ---
Date of Progress Note: 12/03/2022 Subjective: The patient is awake. Had some nausea and vomiting yesterday, but today feels a little better, but still not quite good enough to go home. She is requiring nausea medications. She is devon erating some clear liquids better than yesterday. Pain in the right upper quadrant. Her LFTs did sh ow elevated AST and ALT, which are consistent with the extra cauterization that was utilized to try t o control the venous sinus bleeding on the patient's liver bed during surgery. Her total bilirubin a nd alkaline phosphatase are normal. Objective: Vital Signs: Stable. Her T-max is 99.8. Abdomen: Benign with minimal right upper quadrant tenderness. Laboratory Data: White count is 7.4, H and H are 7.7 and 30.6. AST and ALT are 145 and 126. Total bilirubin is 0.9 and alkaline phosphatase is 87. Assessment: Status post laparoscopic cholecystectomy and severe anxiety. Recommendations: Continue medical management for the anxiety, encourage ambulation and incentive spi rometry, ambulate more and then advance diet as tolerated. Likely discharge in the 24 hours. /MODL Voice ID: [id number] Report ID: [id number]
[2022-12-03 21:13] VITALS: O2SAT 94
[2022-12-04] MEDS: HYDROMORPHONE HCL 1 MG/ML INJ IV PRN ×4 (01:06→10:15)
[2022-12-04 03:24] LABS: Absolute Lymphocytes (CBC) 1.8 K/uL (0.7-4.9); Hematocrit 32.5 % (36.0-45.0); Lymphocytes % 19.9 % (15.3-44.8); MCV 85.7 fL (80-100); MPV 7.7 fL (7.6-11.3); RBC Red Blood Cell Count 3.79 M/uL (3.86-4.86)
[2022-12-04 03:43] LABS: Albumin 2.8 g/dL (3.4-5.0); Bilirubin Direct 0.5 mg/dL (0-0.2); Bilirubin Indirect, Calculated 0.5 mg/dL (0.2-0.8); Magnesium 1.7 mg/dL (1.6-2.4); Potassium 3.8 mEq/L (3.5-5.1); Protein, Total 6.7 g/dL (6.4-8.2)
[2022-12-04] MEDS: PROMETHAZINE INJ 25 MG/ML AMP IV PRN ×2 (04:21→10:22)
[2022-12-04] MEDS ORDERED: MAGNESIUM SULFATE 1 gm IVPB 1 GM/100 ML BAG IV ONE (04:44)
[2022-12-04 04:52] VITALS: TEMP 97.2
[2022-12-04] MEDS: PIPER TAZO 3.375 GM in NA CHLORIDE 0.9% 100 ML IV SCH (06:29)
[2022-12-04] MEDS: HYDROCODONE/APAP 7.5/325 MG TAB PO PRN (06:34)
[2022-12-04] MEDS: ESCITALOPRAM 20 MG TAB PO SCH (07:44)
[2022-12-04 07:57] VITALS: BP 140/92
[2022-12-04] MEDS ORDERED: POTASSIUM CL SA 10 MEQ TAB PO ONE (09:00)
[2022-12-04] MEDS: Ringers Lactate 1,000 ML IV SCH ×2 (10:00)
--- NOTE | 2022-12-04 11:14 | DS ---
Date of Discharge: 12/04/2022 Admitting Diagnoses: Acute cholecystitis and cholelithiasis. Discharge Diagnoses: Acute cholecystitis and cholelithiasis, severe anxiety. Hospital Course: The patient is a 27-year-old female, who was admitted with abdominal pain. Had a w orkup done, which revealed acute cholecystitis and cholelithiasis. She also has a history of severe anxiety. She underwent a cholecystectomy on Saturday morning. Postoperatively, she had complaints o f nausea and pain, which was managed accordingly. Hospice was consulted to manage her anxiety, which was done. Slowly, she started to have improvement in her pain management as well as she is tolerati ng a diet, which she is doing now. She is ambulating, pain controlled with p.o. pain medications. Sh ignacio is afebrile. She is tolerating diet. Therefore, the patient will be discharged to home. Disposition: Home. Condition: Stable. Discharge Instructions: Resume home medications and diet. Activity as tolerated. No heavy lifting. Remove outer dressing in the a.m., shower. Keep wound clean and dry. Follow up in my office in 1 week. Call for appointment. Augmentin, [place] 7.5, Colace as prescribed and called into the patient' s pharmacy, anti-anxiety medicine per the hospitalist team. DIOGO/LUNA Voice ID: [id number] Report ID: [id number]
== END 2022-12-04 12:46 | disposition home or self-care (01) | DRG 419 ==
LOC: ER 02:35 → 2ND 05:42 → OBSVTOIN 12-03 12:08
PROVIDERS: ADMIT Surgery; ATTEND Surgery
PROC: 0FT44ZZ Resection of Gallbladder, Percutaneous Endoscopic Approach (ICD-10-PCS; principal; 2022-12-03)
DX: K80.00 Calculus of gallbladder with acute cholecystitis without obstruction (principal); F41.9 Anxiety disorder, unspecified; R11.0 Nausea; N20.0 Calculus of kidney; N83.11 Corpus luteum cyst of right ovary; R31.29 Other microscopic hematuria; F31.9 Bipolar disorder, unspecified; F90.9 Attention-deficit hyperactivity disorder, unspecified type; F91.3 Oppositional defiant disorder; Z88.8 Allergy status to other drugs, medicaments and biological substances; Z98.51 Tubal ligation status
CPT/HCPCS: 36415; 74018; 74177; 76705; 80048; 80053; 80076; 81001; 81025; 83690; 83735; 84132; 85025; 88304; 94010; 96374; 96375; 99285; J0694; J1100; J1170; J2250; J2405; J2543; J2550; J2704; J3010; J3475; J3480; J7030; J7050; J7120; Q9967

== ENCOUNTER 2022-12-05 00:48 | Inpatient (IN) | payer OTHER ==
--- OUTSIDE RECORDS SUMMARY | 2022-12-05 01:09 | XMS REPORT | Continuity of Care Document ---
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 methylPREDN 2023-0 Yes [id number] Take by [facility] ISolone 2-11 mouth ity of (MEDROL, 00:00: SEE-INSTRU [place],) 4 mg 00 CTIONS. Medica l tablets follow Branch package directions methylPREDN 2023-0 Yes [id number] Take by [facility] ISolone 2-11 mouth ity of (MEDROL, 00:00: SEE-INSTRU [place]ELA,) 4 mg 00 CTIONS. Medica l tablets follow Branch package directions methylPREDN 2023-0 Yes [id number] Take by [facility] ISolone 06-23 mouth ity of (MEDROL, 00:00: SEE-INSTRU [place] ANABELA,) 4 mg 00 CTIONS. Medica l tablets follow [place] package directions bromphenira 2022- No [id number] 5mL Take 5 mL Univers mine-pseudo 06-23 by mouth 4 i ty of ephedrine-D 00:00: 05:59 (four) [place] as M (BROMFED 00 :00 times Medical DM) 230-10 daily as Bran ch mg/5 mL needed for syrup Cold symptoms for up to 10 days. methocarbam 2022- No [id number] 750mg Take 1 [facility] oL 750 mg 06-23 [id number] tablet by it y of tablet 00:00: [...] [place] butalbital- 2021-05- No 1{tbl} 1 tablet, [facility] acetaminoph 07-06 Oral, ity of en-caff 20:15: 20:56 ONCE, 1 [place] (ESGIC) 00 :00 dose, On Medical 50-325-40 Sat Branch mg tablet 1 05/05/22 tablet at 1415, [place] dexamethaso 2021-05 No 10mg 10 mg, Uni vers ne sod phos 07-06 12- Slow IV ity of PF 20:15: 21:00 Push, [place] injection 00 :00 ONCE, 1 Medical 10 mg dose, On Branch 05/05/22 at 1415, 1 mL NaCl 0.9% 2021-05 No 1000mL at 999 Uni vers (NS) bolus - 12-24 mL/hr, ity of infusion 20:00: 21:45 1,000 mL, [place] as 1,000 mL 00 :00 IV Medical Infusion, Branch ONCE, 1 dose, On 05/05/22 at 1400, [place] diphenhydrA 2021-05- No 25mg 25 mg, Uni vers MINE 07-06-24 Slow IV ity of (BENADRYL) 19:15: 19:42 [...] No 30mg 30 mg, Unive rs (TORADOL) 07-06 Slow IV ity of injection 19:15: 19:44 Push, [place] 30 mg 00 :00 ONCE, 1 Medical dose, On Branch 05/05/22 at 1315, Routine butalbital- 2021-05 Yes [id number] 1{tbl} Take 1 [facility] acetaminoph 2-24 tablet by ity of en-caff 00:00: mouth [place] 50-325-40 00 every 4 Medical mg tablet (four) Branch hours as needed for Pain (scale 7-10). butalbital- 2021-05 Yes [id number] 1{tbl} Take 1 [facility] acetaminoph 2-24 tablet by ity of en-caff 00:00: mouth [place] 50-325-40 00 every 4 Medical mg tablet (four) Branch hours as needed for Pain (scale 7-10). butalbital- 2021-05 Yes [id number] 1{tbl} Take 1 [facility] acetaminoph 2-24 tablet by ity of en-caff 00:00: mouth [place] 50-325-40 00 every 4 Medical mg tablet (four) Branch hours as needed for Pain (scale 7-10). butalbital- 2021-05 Yes [id number] 1{tbl} Take 1 [facility] acetaminoph 2-24 tablet by ity of en-caff 00:00: mouth [place] 50-325-40 00 every 4 Medical mg tablet (four) Branch hours as needed for Pain (scale 7-10). butalbital- 2021-05 Yes [id number] 1{tbl} Take 1 [facility] acetaminoph 2-24 tablet by ity of en-caff 00:00: mouth [place] 50-325-40 00 every 4 Medical mg tablet (four) Branch hours as needed for Pain (scale 7-10). butalbital- 2021-05 Yes [id number] 1{tbl} Take 1 [facility] acetaminoph 2-24 tablet by ity of en-caff 00:00: mouth [place] 50-325-40 00 every 4 Medical mg tablet (four) Branch hours as needed for Pain (scale 7-10). butalbital- 2021-05 Yes [id number] 1{tbl} Take 1 [facility] acetaminoph 2-24 tablet by ity of en-caff 00:00: mouth [place] 50-325-40 00 every 4 Medical mg tablet (four) Branch hours as needed for Pain (scale 7-10). butalbital- 2021-05 Yes [id number] 1{tbl} Take 1 [facility] acetaminoph 2-24 tablet by ity of en-caff 00:00: mouth [place] 50-325-40 00 every 4 Medical mg tablet (four) Branch hours as needed for Pain (scale 7-10). butalbital- 2021-05 Yes [id number] 1{tbl} Take 1 [facility] acetaminoph 2-24 tablet by ity of en-caff 00:00: mouth [place] 50-325-40 00 every 4 Medical mg tablet (four) Branch hours as needed for Pain (scale 7-10). butalbital- 2021-05 Yes [id number] 1{tbl} Take 1 [facility] acetaminoph 2-24 tablet by ity of en-caff 00:00: mouth [place] 50-325-40 00 every 4 Medical mg tablet (four) Branch hours as needed for Pain (scale 7-10). butalbital- 2021-05 Yes [id number] 1{tbl} Take 1 [facility] acetaminoph 2-24 tablet by ity of en-caff 00:00: mouth [place] 50-325-40 00 every 4 Medical mg tablet (four) Branch hours as needed for Pain (scale 7-10). butalbital2021-05 Yes [id number] 1{tbl} Take 1 [facility] acetaminoph 2-24 tablet by ity of en-caff 00:00: mouth [place] 50-325-40 00 every 4 Medical mg tablet (four) Branch hours as needed for Pain (scale 7-10). butalbital2021-05 Yes [id number] 1{tbl} Take 1 [facility] acetaminoph 2-24 tablet by ity of en-caff 00:00: mouth [place] 50-325-40 00 every 4 Medical mg tablet (four) Branch hours as needed for Pain (scale 7-10). butalbital2021-05 Yes [id number] 1{tbl} Take 1 [facility] acetaminoph 2-24 tablet by ity of en-caff 00:00: mouth [place] 50-325-40 00 every 4 Medical mg tablet (four) Branch hours as needed for Pain (scale 7-10). butalbital2021-05 Yes [id number] 1{tbl} Take 1 [facility] acetaminoph 2-24 tablet by ity of en-caff 00:00: mouth [place] 50-325-40 00 every 4 Medical mg tablet (four) Branch hours as needed for Pain (scale 7-10). butalbital2021-05 Yes [id number] 1{tbl} Take 1 [facility] acetaminoph 2-24 tablet [...] l mg [place]ie Branch 04/26/22 at 0945, [place] NaCl 0.9% 2021-05 No 1000mL at 999 Uni vers (NS) bolus 2-15 12-15 mL/hr, ity of infusion 15:45: 15:55 1,000 mL, [place] as 1,000 mL 00 :00 IV Medical Piggyback, Branch ONCE, 1 dose, On Kathie 04/26/22 at 0945, STAT ondansetron 2021-05- No 4mg 4 mg, Slow Univers (ZOFRAN 2- 12-15 IV Push, ity of (PF)) 14:45: 14:52 ONCE, 1 [place] injection 4 00 :00 dose, On Medi yessi mg Kathie Branch 04/26/22 at 0845, Routine cephALEXin 2021-05- No [id number] 500mg Take 1 Univers (KEFLEX) 2-15 05-04 capsule by ity of 500 mg 00:00: [...] Nausea and Vomiting (N/V). galcanezuma 2021-05 Yes [id number] 120mg inject 120 Univers b-gnlm 1-28 mg under ity of prefilled 00:00: [place] (EMGALITY) 00 once every Med ical subcutaneou month. Branch s injection galcanezuma 2021-05 Yes [id number] 120mg inject 120 [facility] b-gnlm 1-28 mg under ity of prefilled 00:00: the [place] (EMGALITY) 00 once every Med ical subcutaneou month. Branch s injection galcanezuma 2021-05 Yes [id number] 120mg inject 120 [facility] b-gnlm 1-28 mg under ity of prefilled 00:00: [place] (EMGALITY) 00 once every Med ical subcutaneou month. Branch s injection galcanezuma 2021-05 Yes [id number] 120mg inject 120 [facility] b-gnlm 1-28 mg under ity of prefilled 00:00: the [place] (EMGALITY) 00 once every Med ical subcutaneou month. Branch s injection galcanezuma 2021-05 Yes [id number] 120mg inject 120 [facility] b-gnlm 1-28 mg under ity of prefilled 00:00: [place] (EMGALITY) 00 once every Med ical subcutaneou month. Branch s injection galcanezuma 2021-05 Yes [id number] 120mg inject 120 [facility] b-gnlm 1-28 mg under ity of prefilled 00:00: [place] (EMGALITY) 00 once every Med ical subcutaneou month. Branch s injection galcanezuma 2021-05 Yes [id number] 120mg inject 120 [facility] b-gnlm 1-28 mg under ity of prefilled 00:00: the [place] (EMGALITY) 00 once every Med ical subcutaneou month. Branch s injection galcanezuma 2021-05 Yes [id number] 120mg inject 120 [facility] b-gnlm 1-28 mg under ity of prefilled 00:00: the [place] (EMGALITY) 00 once every Med ical subcutaneou month. Branch s injection galcanezuma 2021-05 Yes [id number] 120mg inject 120 [facility] b-gnlm 1-28 mg under ity of prefilled 00:00: the [place] (EMGALITY) 00 once every Med ical subcutaneou month. Branch s injection galcanezuma 2021-05 Yes [id number] 120mg inject 120 [facility] b-gnlm 1-28 mg under ity of prefilled 00:00: the [place] (EMGALITY) 00 once every Med ical subcutaneou month. Branch s injection galcanezuma 2021-05 Yes [id number] 120mg inject 120 [facility] b-gnlm 1-28 mg under ity of prefilled 00:00: the [place] (EMGALITY) 00 once every Med ical subcutaneou month. Branch s injection galcanezuma 2021-05 Yes [id number] 120mg inject 120 [facility] b-gnlm 1-28 mg under ity of prefilled 00:00: the [place] (EMGALITY) 00 once every Med ical subcutaneou month. Branch s injection galcanezuma 2021-05 Yes [id number] 120mg inject 120 [facility] b-gnlm 1-28 mg under ity of prefilled 00:00: the [place] (EMGALITY) 00 once every Med ical subcutaneou month. Branch s injection galcanezuma 2021-05 Yes [id number] 120mg inject 120 [facility] b-gnlm 1-28 mg under ity of prefilled 00:00: the [place] (EMGALITY) 00 once every Med ical subcutaneou month. Branch s injection galcanezuma 2021-05 Yes [id number] 120mg inject 120 [facility] b-gnlm 1-28 mg under ity of prefilled 00:00: the [place] (EMGALITY) 00 once every Med ical subcutaneou month. Branch s injection galcanezuma 2021-05 Yes [id number] 120mg inject 120 [facility] b-gnlm 1-28 mg under ity of prefilled 00:00: the [place] (EMGALITY) 00 once every Med ical subcutaneou month. Branch s injection galcanezuma 2021-05 Yes [id number] 120mg inject 120 [facility] b-gnlm 1-28 mg under ity of prefilled 00:00: the [place] (EMGALITY) 00 once every Med ical subcutaneou month. Branch s injection galcanezuma 2021-05 Yes [id number] 120mg inject 120 [facility] b-gnlm 1-28 mg under ity of prefilled 00:00: the [place] (EMGALITY) 00 once every Med ical subcutaneou month. Branch s injection galcanezuma 2021-05 Yes [id number] 120mg inject 120 [facility] b-gnlm 1-28 mg under ity of prefilled 00:00: the [place] (EMGALITY) 00 once every Med ical subcutaneou month. Branch s injection galcanezuma 2021-05 Yes [id number] 120mg inject 120 [facility] b-gnlm 1-28 mg under ity of prefilled 00:00: the [place] (EMGALITY) 00 once every Med ical subcutaneou month. Branch s injection galcanezuma 2021-05 Yes [id number] 120mg inject 120 [facility] b-gnlm 1-28 mg under ity of prefilled 00:00: the [place] (EMGALITY) 00 once every Med ical subcutaneou month. Branch s injection galcanezuma 2021-05 Yes [id number] 120mg inject 120 [facility] b-gnlm 1-28 mg under ity of prefilled 00:00: the [place] (EMGALITY) 00 once every Med ical subcutaneou month. Branch s injection galcanezuma 2021-05 Yes [id number] 120mg inject 120 [facility] b-gnlm 1-28 mg under ity of prefilled 00:00: the [place] (EMGALITY) 00 once every Med ical subcutaneou month. Branch s injection galcanezuma 2021-05 Yes [id number] 120mg inject 120 [facility] b-gnlm 1-28 mg under ity of prefilled 00:00: the [place] (EMGALITY) 00 once every Med ical subcutaneou month. Branch s injection galcanezuma 2021-05 Yes [id number] 120mg inject 120 [facility] b-gnlm 1-28 mg under ity of prefilled 00:00: the [place] (EMGALITY) 00 once every Med ical subcutaneou month. Branch s injection galcanezuma 2021-05 Yes [id number] 120mg inject 120 [facility] b-gnlm 1-28 mg under ity of prefilled 00:00: the [place] (EMGALITY) 00 once every Med ical subcutaneou month. Branch s injection galcanezuma 2021-05 Yes [id number] 120mg inject 120 [facility] b-gnlm 1-28 mg under ity of prefilled 00:00: the [place] (EMGALITY) 00 once every Med ical subcutaneou month. Branch s injection galcanezuma 2021-05 Yes [id number] 120mg inject 120 [facility] b-gnlm 1-28 mg under ity of prefilled 00:00: the [place] (EMGALITY) 00 once every Med ical subcutaneou month. Branch s injection galcanezuma 2021-05 Yes [id number] 120mg inject 120 [facility] b-gnlm 1-28 mg under ity of prefilled 00:00: the [place] (EMGALITY) 00 once every Med ical subcutaneou month. Branch s injection galcanezuma 2021-05 Yes [id number] 120mg inject 120 [facility] b-gnlm 1-28 mg under ity of prefilled 00:00: the [place] (EMGALITY) 00 once every Med ical subcutaneou month. Branch s injection galcanezuma 2021-05 Yes [id number] 120mg inject 120 [facility] b-gnlm 1-28 mg [...] 13 :00 Medical Branch rizatriptan 2021-05 Yes [id number] 10mg Take 1 [facility] 10 mg 1-12 tablet by ity of tablet 00:00: mouth as [place] 00 needed for Medical Migraine. Branch May repeat in 2 hours if needed Butalbital- 2021-05 Yes [id number] 1{capsu Take 1 [facility] Acetaminoph 1-12 le} [...] daily. Indication s: headache rizatriptan 2021-05 Yes [id number] 10mg Take 1 [facility] 10 mg 1-12 tablet by ity of tablet 00:00: mouth as [place] 00 needed for Medical Migraine. Branch May repeat in 2 hours if needed Butalbital- 2021-05 Yes [id number] 1{capsu Take 1 [facility] Acetaminoph 1-12 le} [...] daily. Indication s: headache rizatriptan 2021-05 Yes [id number] 10mg Take 1 [facility] 10 mg 1-12 tablet by ity of tablet 00:00: mouth as [place] 00 needed for Medical Migraine. Branch May repeat in 2 hours if needed Butalbital- 2021-05 Yes [id number] 1{capsu Take 1 [facility] Acetaminoph 1-12 le} [...] daily. Indication s: headache rizatriptan 2021-05 Yes [id number] 10mg Take 1 [facility] 10 mg 1-12 tablet by ity of tablet 00:00: mouth as [place] 00 needed for Medical Migraine. Branch May repeat in 2 hours if needed Butalbital- 2021-05 Yes [id number] 1{capsu Take 1 [facility] Acetaminoph 1-12 le} capsule by it y of en-Caff 00:00: mouth [place] (FIORICET) 00 every 6 Medica l 50-300-40 (six) Branch mg per hours as capsule needed for Other (headache) . rizatriptan 2021-05 Yes [id number] 10mg Take 1 [facility] 10 mg 1-12 tablet by ity of tablet 00:00: mouth as [place] 00 needed for Medical Migraine. Branch May repeat in 2 hours if needed Butalbital- 2021-05 Yes [id number] 1{capsu Take 1 [facility] Acetaminoph 1-12 le} capsule by it y of en-Caff 00:00: mouth [place] (FIORICET) 00 every 6 Medica l 50-300-40 (six) Branch mg per hours as capsule needed for Other (headache) . rizatriptan 2021-05 Yes [id number] 10mg Take 1 [facility] 10 mg 1-12 tablet by ity of tablet 00:00: mouth as [place] 00 needed for Medical Migraine. Branch May repeat in 2 hours if needed Butalbital- 2021-05 Yes [id number] 1{capsu Take 1 [facility] Acetaminoph 1-12 le} capsule by it y of en-Caff 00:00: mouth [place] (FIORICET) 00 every 6 Medica l 50-300-40 (six) Branch mg per hours as capsule needed for Other (headache) . rizatriptan 2021-05 Yes [id number] 10mg Take 1 [facility] 10 mg 1-12 tablet by ity of tablet 00:00: mouth as [place] 00 needed for Medical Migraine. Branch May repeat in 2 hours if needed Butalbital- 2021-05 Yes [id number] 1{capsu Take 1 [facility] Acetaminoph 1-12 le} capsule by it y of en-Caff 00:00: mouth [place] (FIORICET) 00 every 6 Medica l 50-300-40 (six) Branch mg per hours as capsule needed for Other (headache) . rizatriptan 2021-05 Yes [id number] 10mg Take 1 [facility] 10 mg 1-12 tablet by ity of tablet 00:00: mouth as [place] 00 needed for Medical Migraine. Branch May repeat in 2 hours if needed Butalbital- 2021-05 Yes [id number] 1{capsu Take 1 [facility] Acetaminoph 1-12 le} capsule by it y of en-Caff 00:00: mouth [place] (FIORICET) 00 every 6 Medica l 50-300-40 (six) Branch mg per hours as capsule needed for Other (headache) . rizatriptan 2021-05 Yes [id number] 10mg Take 1 [facility] 10 mg 1-12 tablet by ity of tablet 00:00: mouth as [place] 00 needed for Medical Migraine. Branch May repeat in 2 hours if needed Butalbital- 2021-05 Yes [id number] 1{capsu Take 1 [facility] Acetaminoph 1-12 le} capsule by it y of en-Caff 00:00: mouth [place] (FIORICET) 00 every 6 Medica l 50-300-40 (six) Branch mg per hours as capsule needed for Other (headache) . rizatriptan 2021-05 Yes [id number] 10mg Take 1 [facility] 10 mg 1-12 tablet by ity of tablet 00:00: mouth as [place] 00 needed for Medical Migraine. Branch May repeat in 2 hours if needed Butalbital- 2021-05 Yes [id number] 1{capsu Take 1 [facility] Acetaminoph 1-12 le} capsule by it y of en-Caff 00:00: mouth [place] (FIORICET) 00 every 6 Medica l 50-300-40 (six) Branch mg per hours as capsule needed for Other (headache) . rizatriptan 2021-05 Yes [id number] 10mg Take 1 [facility] 10 mg 1-12 tablet by ity of tablet 00:00: mouth as [place] 00 needed for Medical Migraine. Branch May repeat in 2 hours if needed Butalbital- 2021-05 Yes [id number] 1{capsu Take 1 [facility] Acetaminoph 1-12 le} capsule by it y of en-Caff 00:00: mouth [place] (FIORICET) 00 every 6 Medica l 50-300-40 (six) Branch mg per hours as capsule needed for Other (headache) . rizatriptan 2021-05 Yes [id number] 10mg Take 1 [facility] 10 mg 1-12 tablet by ity of tablet 00:00: mouth as [place] 00 needed for Medical Migraine. Branch May repeat in 2 hours if needed Butalbital- 2021-05 Yes [id number] 1{capsu Take 1 [facility] Acetaminoph 1-12 le} capsule by it y of en-Caff 00:00: mouth [place] (FIORICET) 00 every 6 Medica l 50-300-40 (six) Branch mg per hours as capsule needed for Other (headache) . rizatriptan 2021-05 Yes [id number] 10mg Take 1 [facility] 10 mg 1-12 tablet by ity of tablet 00:00: mouth as [place] 00 needed for Medical Migraine. Branch May repeat in 2 hours if needed Butalbital- 2021-05 Yes [id number] 1{capsu Take 1 [facility] Acetaminoph 1-12 le} capsule by it y of en-Caff 00:00: mouth [place] (FIORICET) 00 every 6 Medica l 50-300-40 (six) Branch mg per hours as capsule needed for Other (headache) . rizatriptan 2021-05 Yes [id number] 10mg Take 1 [facility] 10 mg 1-12 tablet by ity of tablet 00:00: mouth as [place] 00 needed for Medical Migraine. Branch May repeat in 2 hours if needed Butalbital- 2021-05 Yes [id number] 1{capsu Take 1 [facility] Acetaminoph 1-12 le} capsule by it y of en-Caff 00:00: mouth [place] (FIORICET) 00 every 6 Medica l 50-300-40 (six) Branch mg per hours as capsule needed for Other (headache) . rizatriptan 2021-05 Yes [id number] 10mg Take 1 [facility] 10 mg 1-12 tablet by ity of tablet 00:00: mouth as [place] 00 needed for Medical Migraine. Branch May repeat in 2 hours if needed Butalbital- 2021-05 Yes [id number] 1{capsu Take 1 [facility] Acetaminoph 1-12 le} capsule by it y of en-Caff 00:00: mouth [place] (FIORICET) 00 every 6 Medica l 50-300-40 (six) Branch mg per hours as capsule needed for Other (headache) . rizatriptan 2021-05 Yes [id number] 10mg Take 1 [facility] 10 mg 1-12 tablet by ity of tablet 00:00: mouth as [place] 00 needed for Medical Migraine. Branch May repeat in 2 hours if needed Butalbital- 2021-05 Yes [id number] 1{capsu Take 1 [facility] Acetaminoph 1-12 le} capsule by it y of en-Caff 00:00: mouth [place] (FIORICET) 00 every 6 Medica l 50-300-40 (six) Branch mg per hours as capsule needed for Other (headache) . rizatriptan 2021-05 Yes [id number] 10mg Take 1 [facility] 10 mg 1-12 tablet by ity of tablet 00:00: mouth as [place] 00 needed for Medical Migraine. Branch May repeat in 2 hours if needed Butalbital- 2021-05 Yes [id number] 1{capsu Take 1 [facility] Acetaminoph 1-12 le} capsule by it y of en-Caff 00:00: mouth [place] (FIORICET) 00 every 6 Medica l 50-300-40 (six) Branch mg per hours as capsule needed for Other (headache) . rizatriptan 2021-05 Yes [id number] 10mg Take 1 [facility] 10 mg 1-12 tablet by ity of tablet 00:00: mouth as [place] 00 needed for Medical Migraine. Branch May repeat in 2 hours if needed Butalbital- 2021-05 Yes [id number] 1{capsu Take 1 [facility] Acetaminoph 1-12 le} capsule by it y of en-Caff 00:00: mouth [place] (FIORICET) 00 every 6 Medica l 50-300-40 (six) Branch mg per hours as capsule needed for Other (headache) . rizatriptan 2021-05 Yes [id number] 10mg Take 1 [facility] 10 mg 1-12 tablet by ity of tablet 00:00: mouth as [place] 00 needed for Medical Migraine. Branch May repeat in 2 hours if needed Butalbital- 2021-05 Yes [id number] 1{capsu Take 1 [facility] Acetaminoph 1-12 le} capsule by it y of en-Caff 00:00: mouth [place] (FIORICET) 00 every 6 Medica l 50-300-40 (six) Branch mg per hours as capsule needed for Other (headache) . rizatriptan 2021-05 Yes [id number] 10mg Take 1 [facility] 10 mg 1-12 tablet by ity of tablet 00:00: mouth as [place] 00 needed for Medical Migraine. Branch May repeat in 2 hours if needed Butalbital- 2021-05 Yes [id number] 1{capsu Take 1 [facility] Acetaminoph 1-12 le} capsule by it y of en-Caff 00:00: mouth [place] (FIORICET) 00 every 6 Medica l 50-300-40 (six) Branch mg per hours as capsule needed for Other (headache) . rizatriptan 2021-05 Yes [id number] 10mg Take 1 [facility] 10 mg 1-12 tablet by ity of tablet 00:00: mouth as [place] 00 needed for Medical Migraine. Branch May repeat in 2 hours if needed Butalbital- 2021-05 Yes [id number] 1{capsu Take 1 [facility] Acetaminoph 1-12 le} capsule by it y of en-Caff 00:00: mouth [place] (FIORICET) 00 every 6 Medica l 50-300-40 (six) Branch mg per hours as capsule needed for Other (headache) . rizatriptan 2021-05 Yes [id number] 10mg Take 1 [facility] 10 mg 1-12 tablet by ity of tablet 00:00: mouth as [place] 00 needed for Medical Migraine. Branch May repeat in 2 hours if needed Butalbital- 2021-05 Yes [id number] 1{capsu Take 1 [facility] Acetaminoph 1-12 le} capsule by it y of en-Caff 00:00: mouth [place] (FIORICET) 00 every 6 Medica l 50-300-40 (six) Branch mg per hours as capsule needed for Other (headache) . rizatriptan 2021-05 Yes [id number] 10mg Take 1 [facility] 10 mg 1-12 tablet by ity of tablet 00:00: mouth as [place] 00 needed for Medical Migraine. Branch May repeat in 2 hours if needed Butalbital- 2021-05 Yes [id number] 1{capsu Take 1 [facility] Acetaminoph 1-12 le} capsule by it y of en-Caff 00:00: mouth [place] (FIORICET) 00 every 6 Medica l 50-300-40 (six) Branch mg per hours as capsule needed for Other (headache) . rizatriptan 2021-05 Yes [id number] 10mg Take 1 [facility] 10 mg 1-12 tablet by ity of tablet 00:00: mouth as [place] 00 needed for Medical Migraine. Branch May repeat in 2 hours if needed Butalbital- 2021-05 Yes [id number] 1{capsu Take 1 [facility] Acetaminoph 1-12 le} capsule by it y of en-Caff 00:00: mouth [place] (FIORICET) 00 every 6 Medica l 50-300-40 (six) Branch mg per hours as capsule needed for Other (headache) . rizatriptan 2021-05 Yes [id number] 10mg Take 1 [facility] 10 mg 1-12 tablet by ity of tablet 00:00: mouth as [place] 00 needed for Medical Migraine. Branch May repeat in 2 hours if needed Butalbital- 2021-05 Yes [id number] 1{capsu Take 1 [facility] Acetaminoph 1-12 le} capsule by it y of en-Caff 00:00: mouth [place] (FIORICET) 00 every 6 Medica l 50-300-40 (six) Branch mg per hours as capsule needed for Other (headache) . rizatriptan 2021-05 Yes [id number] 10mg Take 1 [facility] 10 mg 1-12 tablet by ity of tablet 00:00: mouth as [place] 00 needed for Medical Migraine. Branch May repeat in 2 hours if needed Butalbital- 2021-05 Yes [id number] 1{capsu Take 1 [facility] Acetaminoph 1-12 le} capsule by it y of en-Caff 00:00: mouth [place] (FIORICET) 00 every 6 Medica l 50-300-40 (six) Branch mg per hours as capsule needed for Other (headache) . rizatriptan 2021-05 Yes [id number] 10mg Take 1 [facility] 10 mg 1-12 tablet by ity of tablet 00:00: mouth as [place] 00 needed for Medical Migraine. Branch May repeat in 2 hours if needed Butalbital- 2021-05 Yes [id number] 1{capsu Take 1 [facility] Acetaminoph 1-12 le} capsule by it y of en-Caff 00:00: mouth [place] (FIORICET) 00 every 6 Medica l 50-300-40 (six) Branch mg per hours as capsule needed for Other (headache) . rizatriptan 2021-05 Yes [id number] 10mg Take 1 [facility] 10 mg 1-12 tablet by ity of tablet 00:00: mouth as [place] 00 needed for Medical Migraine. Branch May repeat in 2 hours if needed Butalbital- 2021-05 Yes [id number] 1{capsu Take 1 [facility] Acetaminoph 1-12 le} capsule by it y of en-Caff 00:00: mouth [place] (FIORICET) 00 every 6 Medica l 50-300-40 (six) Branch mg per hours as capsule needed for Other (headache) . rizatriptan 2021-05 Yes [id number] 10mg Take 1 [facility] 10 mg 1-12 tablet by ity of tablet 00:00: mouth as [place] 00 needed for Medical Migraine. Branch May repeat in 2 hours if needed Butalbital- 2021-05 Yes [id number] 1{capsu Take 1 [facility] Acetaminoph 1-12 le} capsule by it y of en-Caff 00:00: mouth [place] (FIORICET) 00 every 6 Medica l 50-300-40 (six) Branch mg per hours as capsule needed for Other (headache) . rizatriptan 2021-05 Yes [id number] 10mg Take 1 [facility] 10 mg 1-12 tablet by ity of tablet 00:00: mouth as [place] 00 needed for Medical Migraine. Branch May repeat in 2 hours if needed Butalbital- 2021-05 Yes [id number] 1{capsu Take 1 [facility] Acetaminoph 1-12 le} capsule by it y of en-Caff 00:00: mouth [place] (FIORICET) 00 every 6 Medica l 50-300-40 (six) Branch mg per hours as capsule needed for Other (headache) . rizatriptan 2021-05 Yes [id number] 10mg Take 1 [facility] 10 mg 1-12 tablet by ity of tablet 00:00: mouth as [place] 00 needed for Medical Migraine. Branch May repeat in 2 hours if needed Butalbital- 2021-05 Yes [id number] 1{capsu Take 1 [facility] Acetaminoph 1-12 le} capsule by it y of en-Caff 00:00: mouth [place] (FIORICET) 00 every 6 Medica l 50-300-40 (six) Branch mg per hours as capsule needed for Other (headache) . rizatriptan 2021-05 Yes [id number] 10mg Take 1 [facility] 10 mg 1-12 tablet by ity of tablet 00:00: mouth as [place] 00 needed for Medical Migraine. Branch May repeat in 2 hours if needed Butalbital- 2021-05 Yes [id number] 1{capsu Take 1 [facility] Acetaminoph 1-12 le} capsule by it y of en-Caff 00:00: mouth [place] (FIORICET) 00 every 6 Medica l 50-300-40 (six) Branch mg per hours as capsule needed for Other (headache) . rizatriptan 2021-05 Yes [id number] 10mg Take 1 [facility] 10 mg 1-12 tablet by ity of tablet 00:00: mouth as [place] 00 needed for Medical Migraine. Branch May repeat in 2 hours if needed Butalbital- 2021-05 Yes [id number] 1{capsu Take 1 [facility] Acetaminoph 1-12 le} capsule by it y of en-Caff 00:00: mouth [place] (FIORICET) 00 every 6 Medica l 50-300-40 (six) Branch mg per hours as capsule needed for Other (headache) . rizatriptan 2021-05 Yes [id number] 10mg Take 1 [facility] 10 mg 1-12 tablet by ity of tablet 00:00: mouth as [place] 00 needed for Medical Migraine. Branch May repeat in 2 hours if needed Butalbital- 2021-05 Yes [id number] 1{capsu Take 1 [facility] Acetaminoph 1-12 le} capsule by it y of en-Caff 00:00: mouth [place] (FIORICET) 00 every 6 Medica l 50-300-40 (six) Branch mg per hours as capsule needed for Other (headache) . rizatriptan 2021-05 Yes [id number] 10mg Take 1 [facility] 10 mg 1-12 tablet by ity of tablet 00:00: mouth as [place] 00 needed for Medical Migraine. Branch May repeat in 2 hours if needed Butalbital- 2021-05 Yes [id number] 1{capsu Take 1 [facility] Acetaminoph 1-12 le} [...] 50 mcg dose, On Branch [facility] 03/15/22 at 1030, Routine proMETHazin 2021-05 No 25mg 25 mg, Uni vers e 05-15 Oral, ity of (PHENERGAN) 14:45: 14:55 ONCE, 1 [place] tablet 25 00 :00 dose, On Medica l mg [facility] 03/15/22 at 0945, [place] FENTanyl PF 2021-05 No 50ug 50 mcg, Un sushant (SUBLIMAZE 05-15 Slow IV ity o f (PF)) 14:45: 13:58 Push, [place] injection 00 :00 ONCE, 1 Medical 50 mcg dose, On Branch [facility] 03/15/22 at 0945, Routine ondansetron 2021-05 No 4mg 4 mg, Slow Univers (ZOFRAN 05-15 IV Push, ity of (PF)) 14:00: 13:58 ONCE, 1 [place] injection 4 00 :00 dose, On Medi yessi mg [facility] 03/15/22 at 0900, [place] ondansetron 2021-05 Yes [id number] 4mg Take 1 [facility] 4 mg -03 tablet by ity of disintegrat 00:00: mouth [place] ing tablet 00 every 8 Medica l (eight) Branch hours as needed for Nausea and Vomiting (N/V). ketorolac 2021-05 Yes [id number] 10mg Take 1 U nivers 10 mg 1-03 tablet by ity of tablet 00:00: mouth [place] 00 every 6 Medical (six) Branch hours as needed for Pain (scale 7-10). proMETHazin 2021-05 Yes [id number] 25mg Take 1 [facility] e 25 mg 1-03 tablet by ity of tablet 00:00: mouth [place] 00 every 6 Medical (six) Branch hours as needed for N/V unresponsi ve to Ondansetro n. ondansetron 2021-05 Yes [id number] 4mg Take 1 [facility] 4 mg 1-03 tablet by ity of disintegrat 00:00: mouth [place] ing tablet 00 every 8 Medica l (eight) Branch hours as needed for Nausea and Vomiting (N/V). ketorolac 2021-05 Yes [id number] 10mg Take 1 U nivers 10 mg 1-03 tablet by ity of tablet 00:00: mouth [place] 00 every 6 Medical (six) Branch hours as needed for Pain (scale 7-10). proMETHazin 2021-05 Yes [id number] 25mg Take 1 [facility] e 25 mg 1-03 tablet by ity of tablet 00:00: mouth [place] 00 every 6 Medical (six) Branch hours as needed for N/V unresponsi ve to Ondansetro n. carvediloL 2021-05 Yes [id number] 25mg Take 1 U nivers 25 mg 1-03 tablet by ity of tablet 00:00: mouth in [place] 00 the Medical morning Branch and 1 tablet in the evening. Take with meals. ondansetron 2021-05 Yes [id number] 4mg Take 1 [facility] 4 mg 1-03 tablet by ity of disintegrat 00:00: mouth [place] ing tablet 00 every 8 Medica l (eight) Branch hours as needed for Nausea and Vomiting (N/V). ketorolac 2021-05 Yes [id number] 10mg Take 1 U nivers 10 mg 1-03 tablet by ity of tablet 00:00: mouth [place] 00 every 6 Medical (six) Branch hours as needed for Pain (scale 7-10). proMETHazin 2021-05 Yes [id number] 25mg Take 1 [facility] e 25 mg 1-03 tablet by ity of tablet 00:00: mouth [place] 00 every 6 Medical (six) Branch hours as needed for N/V unresponsi ve to Ondansetro n. carvediloL 2021-05 Yes [id number] 25mg Take 1 U nivers 25 mg 1-03 tablet by ity of tablet 00:00: mouth in [place] 00 the Medical morning Branch and 1 tablet in the evening. Take with meals. ondansetron 2021-05 Yes [id number] 4mg Take 1 [facility] 4 mg 1-03 tablet by ity of disintegrat 00:00: mouth [place] ing tablet 00 every 8 Medica l (eight) Branch hours as needed for Nausea and Vomiting (N/V). ketorolac 2021-05 Yes [id number] 10mg Take 1 U nivers 10 mg 1-03 tablet by ity of tablet 00:00: mouth [place] 00 every 6 Medical (six) Branch hours as needed for Pain (scale 7-10). proMETHazin 2021-05 Yes [id number] 25mg Take 1 [facility] e 25 mg 1-03 tablet by ity of tablet 00:00: mouth [place] 00 every 6 Medical (six) Branch hours as needed for N/V unresponsi ve to Ondansetro n. carvediloL 2021-05 Yes [id number] 25mg Take 1 U nivers 25 mg 1-03 tablet by ity of tablet 00:00: mouth in [place] 00 the Medical morning Branch and 1 tablet in the evening. Take with meals. ondansetron 2021-05 Yes [id number] 4mg Take 1 [facility] 4 mg 1-03 tablet by ity of disintegrat 00:00: mouth [place] ing tablet 00 every 8 Medica l (eight) Branch hours as needed for Nausea and Vomiting (N/V). ketorolac 2021-05 Yes [id number] 10mg Take 1 U nivers 10 mg 1-03 tablet by ity of tablet 00:00: mouth [place] 00 every 6 Medical (six) Branch hours as needed for Pain (scale 7-10). proMETHazin 2021-05 Yes [id number] 25mg Take 1 Univers e 25 mg 1-03 tablet by ity of tablet 00:00: mouth [place] 00 every 6 Medical (six) Branch hours as needed for N/V unresponsi ve to Ondansetro n. carvediloL 2021-05 Yes [id number] 25mg Take 1 U nivers 25 mg 1-03 tablet by ity of tablet 00:00: mouth in [place] 00 the Medical morning Branch and 1 tablet in the evening. Take with meals. ondansetron 2021-05 Yes [id number] 4mg Take 1 [facility] 4 mg 1-03 tablet by ity of disintegrat 00:00: mouth [place] ing tablet 00 every 8 Medica l (eight) Branch hours as needed for Nausea and Vomiting (N/V). ketorolac 2021-05 Yes [id number] 10mg Take 1 U nivers 10 mg 1-03 tablet by ity of tablet 00:00: mouth [place] 00 every 6 Medical (six) Branch hours as needed for Pain (scale 7-10). proMETHazin 2021-05 Yes [id number] 25mg Take 1 Univers e 25 mg 1-03 tablet by ity of tablet 00:00: mouth [place] 00 every 6 Medical (six) Branch hours as needed for N/V unresponsi ve to Ondansetro n. carvediloL 2021-05 Yes [id number] 25mg Take 1 U nivers 25 mg 1-03 tablet by ity of tablet 00:00: mouth in [place] 00 the Medical morning Branch and 1 tablet in the evening. Take with meals. ondansetron 2021-05 Yes [id number] 4mg Take 1 [facility] 4 mg 1-03 tablet by ity of disintegrat 00:00: mouth [place] ing tablet 00 every 8 Medica l (eight) Branch hours as needed for Nausea and Vomiting (N/V). ketorolac 2021-05 Yes [id number] 10mg Take 1 U nivers 10 mg 1-03 tablet by ity of tablet 00:00: mouth [place] 00 every 6 Medical (six) Branch hours as needed for Pain (scale 7-10). proMETHazin 2021-05 Yes [id number] 25mg Take 1 Univers e 25 mg 1-03 tablet by ity of tablet 00:00: mouth [place] 00 every 6 Medical (six) Branch hours as needed for N/V unresponsi ve to Ondansetro n. carvediloL 2021-05 Yes [id number] 25mg Take 1 U nivers 25 mg 1-03 tablet by ity of tablet 00:00: mouth in [place] 00 the Medical morning Branch and 1 tablet in the evening. Take with meals. ondansetron 2021-05 Yes [id number] 4mg Take 1 [facility] 4 mg 1-03 tablet by ity of disintegrat 00:00: mouth [place] ing tablet 00 every 8 Medica l (eight) Branch hours as needed for Nausea and Vomiting (N/V). ketorolac 2021-05 Yes [id number] 10mg Take 1 U nivers 10 mg 1-03 tablet by ity of tablet 00:00: mouth [place] 00 every 6 Medical (six) Branch hours as needed for Pain (scale 7-10). proMETHazin 2021-05 Yes [id number] 25mg Take 1 Univers e 25 mg 1-03 tablet by ity of tablet 00:00: mouth [place] 00 every 6 Medical (six) Branch hours as needed for N/V unresponsi ve to Ondansetro n. carvediloL 2021-05 Yes [id number] 25mg Take 1 U nivers 25 mg 1-03 tablet by ity of tablet 00:00: mouth in [place] 00 the Medical morning Branch and 1 tablet in the evening. Take with meals. ondansetron 2021-05 Yes [id number] 4mg Take 1 [facility] 4 mg 1-03 tablet by ity of disintegrat 00:00: mouth [place] ing tablet 00 every 8 Medica l (eight) Branch hours as needed for Nausea and Vomiting (N/V). ketorolac 2021-05 Yes [id number] 10mg Take 1 U nivers 10 mg 1-03 tablet by ity of tablet 00:00: mouth [place] 00 every 6 Medical (six) Branch hours as needed for Pain (scale 7-10). proMETHazin 2021-05 Yes [id number] 25mg Take 1 Univers e 25 mg 1-03 tablet by ity of tablet 00:00: mouth [place] 00 every 6 Medical (six) Branch hours as needed for N/V unresponsi ve to Ondansetro n. carvediloL 2021-05 Yes [id number] 25mg Take 1 U nivers 25 mg 1-03 tablet by ity of tablet 00:00: mouth in [place] 00 the Medical morning Branch and 1 tablet in the evening. Take with meals. ondansetron 2021-05 Yes [id number] 4mg Take 1 [facility] 4 mg 1-03 tablet by ity of disintegrat 00:00: mouth [place] ing tablet 00 every 8 Medica l (eight) Branch hours as needed for Nausea and Vomiting (N/V). ketorolac 2021-05 Yes [id number] 10mg Take 1 U nivers 10 mg 1-03 tablet by ity of tablet 00:00: mouth [place] 00 every 6 Medical (six) Branch hours as needed for Pain (scale 7-10). proMETHazin 2021-05 Yes [id number] 25mg Take 1 Univers e 25 mg 1-03 tablet by ity of tablet 00:00: mouth [place] 00 every 6 Medical (six) Branch hours as needed for N/V unresponsi ve to Ondansetro n. carvediloL 2021-05 Yes [id number] 25mg Take 1 U nivers 25 mg 1-03 tablet by ity of tablet 00:00: mouth in [place] 00 the Medical morning Branch and 1 tablet in the evening. Take with meals. carvediloL 2021-05 Yes [id number] 25mg Take 1 U nivers 25 mg 1-03 tablet by ity of tablet 00:00: mouth in [place] 00 the Medical morning Branch and 1 tablet in the evening. Take with meals. carvediloL 2021-05 Yes [id number] 25mg Take 1 U nivers 25 mg 1-03 tablet by ity of tablet 00:00: mouth in [place] 00 the Medical morning Branch and 1 tablet in the evening. Take with meals. carvediloL 2021-05 Yes [id number] 25mg Take 1 U nivers 25 mg 1-03 tablet by ity of tablet 00:00: mouth in [place] 00 the Medical morning Branch and 1 tablet in the evening. Take with meals. carvediloL 2021-05 Yes [id number] 25mg Take 1 U nivers 25 mg 1-03 tablet by ity of tablet 00:00: mouth in [place] 00 the Medical morning Branch and 1 tablet in the evening. Take with meals. carvediloL 2021-05 Yes [id number] 25mg Take 1 U nivers 25 mg 1-03 tablet by ity of tablet 00:00: mouth in [place] 00 the Medical morning Branch and 1 tablet in the evening. Take with meals. carvediloL 2021-05 Yes [id number] 25mg Take 1 U nivers 25 mg 1-03 tablet by ity of tablet 00:00: mouth in [place] 00 the Medical morning Branch and 1 tablet in the evening. Take with meals. carvediloL 2021-05 Yes [id number] 25mg Take 1 U nivers 25 mg 1-03 tablet by ity of tablet 00:00: mouth in [place] 00 the [facility] morning [place] and 1 tablet in the evening. Take with meals. carvediloL 2021-05 Yes [id number] 25mg Take 1 U nivers 25 mg 1-03 tablet by ity of tablet 00:00: mouth in [place] 00 the Medical morning Branch and 1 tablet in the evening. Take with meals. carvediloL 2021-05 Yes [id number] 25mg Take 1 U nivers 25 mg 1-03 tablet by ity of tablet 00:00: mouth in [place] 00 the Medical morning Branch and 1 tablet in the evening. Take with meals. carvediloL 2021-05 Yes [id number] 25mg Take 1 U nivers 25 mg 1-03 tablet by ity of tablet 00:00: mouth in [place] [address] the Medical morning Branch and 1 tablet in the evening. Take with meals. carvediloL 2021-05 Yes [id number] 25mg Take 1 U nivers 25 mg 1-03 tablet by ity of tablet 00:00: mouth in [place] [address] the Medical morning Branch and 1 tablet in the evening. Take with meals. carvediloL 2021-05 Yes [id number] 25mg Take 1 U nivers 25 mg 1-03 tablet by ity of tablet 00:00: mouth in [place] [address] the Medical morning [place] and 1 tablet in the evening. Take with meals. carvediloL 2021-05 Yes [id number] 25mg Take 1 U nivers 25 mg 1-03 tablet by ity of tablet 00:00: mouth in [place] [address] the Medical morning [place] and 1 tablet in the evening. Take with meals. carvediloL 2021-05 Yes [id number] 25mg Take 1 U nivers 25 mg 1-03 tablet by ity of tablet 00:00: mouth in [place] [address] the Medical morning Branch and 1 tablet in the evening. Take with meals. carvediloL 2021-05 Yes [id number] 25mg Take 1 U nivers 25 mg 1-03 tablet by ity of tablet 00:00: mouth in [place] [address] the Medical morning Branch and 1 tablet in the evening. Take with meals. carvediloL 2021-05 Yes [id number] 25mg Take 1 U nivers 25 mg 1-03 tablet by ity of tablet 00:00: mouth in [place] [address] the Medical morning Branch and 1 tablet in the evening. Take with meals. carvediloL 2021-05 Yes [id number] 25mg Take 1 U nivers 25 mg 1-03 tablet by ity of tablet 00:00: mouth in [place] 00 the Medical morning Branch and 1 tablet in the evening. Take with meals. carvediloL 2021-05 Yes [id number] 25mg Take 1 U nivers 25 mg 1-03 tablet by ity of tablet 00:00: mouth in [place] 00 the Medical morning Branch and 1 tablet in the evening. Take with meals. carvediloL 2021-05 Yes [id number] 25mg Take 1 U nivers 25 mg 1-03 tablet by ity of tablet 00:00: mouth in [place] 00 the [facility] morning Branch and 1 tablet in the evening. Take with meals. carvediloL 2021-05 Yes [id number] 25mg Take 1 U nivers 25 mg 1-03 tablet by ity of tablet 00:00: mouth in [place] 00 the Medical morning Branch and 1 tablet in the evening. Take with meals. carvediloL 2021-05 Yes [id number] 25mg Take 1 U nivers 25 mg 1-03 tablet by ity of tablet 00:00: mouth in [place] 00 the [facility] morning [place] and 1 tablet in the evening. Take with meals. carvediloL 2021-05- No [id number] 25mg Take 1 [facility] 25 mg 1-03 04-26 tablet by ity of tablet 00:00: 00:00 mouth in [place] 00 :00 the [facility] morning Branch and 1 tablet in the evening. Take with meals. carvediloL 2021-05- No [id number] 25mg Take 1 [facility] 25 mg 1-03 04-26 tablet by ity of tablet 00:00: 00:00 mouth in [place] 00 :00 the [facility] morning [place] and 1 tablet in the evening. Take with meals. ondansetron 2021-05- No [id number] 4mg Take 1 [facility] 4 mg 1-03 11-26 tablet by ity of disintegrat 00:00: 00:00 [place] tablet 00 :00 every 8 Medica l (eight) Branch hours as needed for Nausea and Vomiting (N/V). ketorolac 2021-05- No [id number] 10mg Take 1 [facility] 10 mg 1-03 11-26 tablet by ity of tablet 00:00: 00:00 mouth [place] 00 :00 every 6 Medical (six) Branch hours as needed for Pain (scale 7-10). proMETHazin 2021-05- No [id number] 25mg Take 1 Univers e 25 mg 05-15 tablet by ity of tablet 00:00: 00:00 mouth [place] 00 :00 every 6 Medical (six) Branch hours as needed for N/V unresponsi ve to Ondansetro n. cephALEXin 2021-05- No [id number] 500mg Take 1 [facility] 500 mg 05-15 capsule by ity of capsule 00:00: 05:59 mouth 4 [place] 00 :00 (four) Medical times Branch daily for 3 days. cephALEXin 2021-05- No [id number] 500mg Take 1 [facility] 500 mg 05-15 capsule by ity of capsule 00:00: 05:59 mouth 4 [place] 00 :00 (four) Medical times [place] daily for 3 days. cephALEXin 2021-05- No [id number] 500mg Take 1 [facility] 500 mg 05-15 capsule by ity of capsule 00:00: 05:59 mouth 4 [place] 00 :00 (four) Medical times [place] daily for 3 days. predniSONE 2021-05- No [id number] 20mg Take 1 [facility] 20 mg 03-15 tablet by ity of tablet 00:00: 04:59 mouth in [place] 00 :00 the Medical morning Branch for 2 days. methocarbam 2021-05 No 500mg 500 mg, U nivers oL 0-30 10-30 Oral, ity of (ROBAXIN) 16:45: 17:08 ONCE, 1 [place] 500 00 :00 dose, On Medic al mg [facility] 03/11/22 at 1200, [place] dexamethaso 2021-05 No 10mg 10 mg, Uni vers ne sod phos 0-30 10-30 Slow IV ity of PF 16:00: 16:00 Push, [place] injection 00 :00 ONCE, 1 Medical 10 mg dose, On [facility] 03/11/22 at 1100, 1 mL diphenhydrA 2021-05 No 25mg 25 mg, Uni vers MINE 0-30 10-30 Slow IV ity of (BENADRYL) 15:46: 16:00 [place], [place] injection 00 :00 ONCE, 1 Medical 25 mg dose, On [facility] 03/11/22 at 1100, STAT NaCl [...] :00 ONCE, 1 Medical dose, On Branch [facility] 03/11/22 at 0945, [place] proMETHazin 2021-05- No 12.5mg 12.5 mg, Univers e 0-30 10-30 IV ity of (PHENERGAN) 14:45: 15:04 [place], [place] 12.5 mg in 00 :00 ONCE, 1 Medica l NaCl 0.9% dose, On Branch (NS) 50 mL Sun IV 03/11/22 [place]gyback at 0945, [place] proMETHazin 2021-05 Yes [id number] 25mg Take 1 Univers e 25 mg 0-30 tablet by ity of tablet 00:00: mouth [place] 00 every 6 Medical (six) Branch hours as needed for Nausea and Vomiting (N/V). methocarbam 2021-05 Yes [id number] 500mg Take 1 [facility] oL 500 mg 0-30 tablet by ity o f tablet 00:00: mouth 3 [place] 00 (three) Medical times Branch daily as needed for Pain (scale 7-10). proMETHazin 2021-05 Yes [id number] 25mg Take 1 Univers e 25 mg 0-30 tablet by ity of tablet 00:00: mouth [place] 00 every 6 Medical (six) Branch hours as needed for Nausea and Vomiting (N/V). methocarbam 2021-05 Yes [id number] 500mg Take 1 [facility] oL 500 mg 0-30 tablet by ity o f tablet 00:00: mouth 3 [place] 00 (three) Medical times Branch daily as needed for Pain (scale 7-10). proMETHazin 2021-05 Yes [id number] 25mg Take 1 Univers e 25 mg 0-30 tablet by ity of tablet 00:00: mouth [place] 00 every 6 Medical (six) Branch hours as needed for Nausea and Vomiting (N/V). methocarbam 2021-05 Yes [id number] 500mg Take 1 [facility] oL 500 mg 0-30 tablet by ity o f tablet 00:00: mouth 3 [place] 00 (three) Medical times Branch daily as needed for Pain (scale 7-10). proMETHazin 2021-05 Yes [id number] 25mg Take 1 Univers e 25 mg 0-30 tablet by ity of tablet 00:00: mouth [place] 00 every 6 Medical (six) Branch hours as needed for Nausea and Vomiting (N/V). methocarbam 2021-05 Yes [id number] 500mg Take 1 [facility] oL 500 mg 0-30 tablet by ity o f tablet 00:00: mouth 3 00 (three) Medical times Branch daily as needed for Pain (scale 7-10). proMETHazin 2021-05 Yes [id number] 25mg Take 1 Univers e 25 mg 0-30 tablet by ity of tablet 00:00: mouth [place] 00 every 6 Medical (six) Branch hours as needed for Nausea and Vomiting (N/V). methocarbam 2021-05 Yes [id number] 500mg Take 1 [facility] oL 500 mg 0-30 tablet by ity o f tablet 00:00: mouth 3 [place] 00 (three) Medical times Branch daily as needed for Pain (scale 7-10). proMETHazin 2021-05 Yes [id number] 25mg Take 1 Univers e 25 mg 0-30 tablet by ity of tablet 00:00: mouth [place] 00 every 6 Medical (six) Branch hours as needed for Nausea and Vomiting (N/V). methocarbam 2021-05 Yes [id number] 500mg Take 1 [facility] oL 500 mg 0-30 tablet by ity o f tablet 00:00: mouth 3 [place] 00 (three) Medical times Branch daily as needed for Pain (scale 7-10). proMETHazin 2021-05 Yes [id number] 25mg Take 1 Univers e 25 mg 0-30 tablet by ity of tablet 00:00: mouth [place] 00 every 6 Medical (six) Branch hours as needed for Nausea and Vomiting (N/V). methocarbam 2021-05 Yes [id number] 500mg Take 1 [facility] oL 500 mg 0-30 tablet by ity o f tablet 00:00: mouth 3 [place] 00 (three) Medical times Branch daily as needed for Pain (scale 7-10). proMETHazin 2021-05 Yes [id number] 25mg Take 1 Univers e 25 mg 0-30 tablet by ity of tablet 00:00: mouth [place] 00 every 6 Medical (six) Branch hours as needed for Nausea and Vomiting (N/V). methocarbam 2021-05 Yes [id number] 500mg Take 1 Univers oL 500 mg 0-30 tablet by ity o f tablet 00:00: mouth 3 [place] 00 (three) Medical times Branch daily as needed for Pain (scale 7-10). proMETHazin 2021-05 Yes [id number] 25mg Take 1 Univers e 25 mg 0-30 tablet by ity of tablet 00:00: mouth [place] 00 every 6 Medical (six) Branch hours as needed for Nausea and Vomiting (N/V). methocarbam 2021-05 Yes [id number] 500mg Take 1 [facility] oL 500 mg 0-30 tablet by ity o f tablet 00:00: mouth 3 [place] 00 (three) Medical times Branch daily as needed for Pain (scale 7-10). proMETHazin 2021-05 Yes [id number] 25mg Take 1 Univers e 25 mg 0-30 tablet by ity of tablet 00:00: mouth [place] 00 every 6 Medical (six) Branch hours as needed for Nausea and Vomiting (N/V). methocarbam 2021-05 Yes [id number] 500mg Take 1 [facility] oL 500 mg 0-30 tablet by ity o f tablet 00:00: mouth 3 [place] 00 (three) Medical times Branch daily as needed for Pain (scale 7-10). proMETHazin 2021-05 Yes [id number] 25mg Take 1 Univers e 25 mg 0-30 tablet by ity of tablet 00:00: mouth [place] 00 every 6 Medical (six) Branch hours as needed for Nausea and Vomiting (N/V). methocarbam 2021-05 Yes [id number] 500mg Take 1 [facility] oL 500 mg 0-30 tablet by ity o f tablet 00:00: mouth 3 [place] 00 (three) Medical times Branch daily as needed for Pain (scale 7-10). proMETHazin 2021-05 Yes [id number] 25mg Take 1 Univers e 25 mg 0-30 tablet by ity of tablet 00:00: mouth [place] 00 every 6 Medical (six) Branch hours as needed for Nausea and Vomiting (N/V). proMETHazin 2021-05 Yes [id number] 25mg Take 1 Univers e 25 mg 0-30 tablet by ity of tablet 00:00: mouth [place] 00 every 6 Medical (six) Branch hours as needed for Nausea and Vomiting (N/V). proMETHazin 2021-05 Yes [id number] 25mg Take 1 Univers e 25 mg 0-30 tablet by ity of tablet 00:00: mouth [place] 00 every 6 Medical (six) Branch hours as needed for Nausea and Vomiting (N/V). proMETHazin 2021-05 Yes [id number] 25mg Take 1 Univers e 25 mg 0-30 tablet by ity of tablet 00:00: mouth [place] 00 every 6 Medical (six) Branch hours as needed for Nausea and Vomiting (N/V). proMETHazin 2021-05 Yes [id number] 25mg Take 1 Univers e 25 mg 0-30 tablet by ity of tablet 00:00: mouth [place] 00 every 6 Medical (six) Branch hours as needed for Nausea and Vomiting (N/V). proMETHazin 2021-05 Yes [id number] 25mg Take 1 Univers e 25 mg 0-30 tablet by ity of tablet 00:00: mouth [place] 00 every 6 Medical (six) Branch hours as needed for Nausea and Vomiting (N/V). proMETHazin 2021-05 Yes [id number] 25mg Take 1 Univers e 25 mg 0-30 tablet by ity of tablet 00:00: mouth [place] 00 every 6 Medical (six) Branch hours as needed for Nausea and Vomiting (N/V). proMETHazin 2021-05 Yes [id number] 25mg Take 1 Univers e 25 mg 0-30 tablet by ity of tablet 00:00: mouth [place] 00 every 6 Medical (six) Branch hours as needed for Nausea and Vomiting (N/V). proMETHazin 2021-05 Yes [id number] 25mg Take 1 Univers e 25 mg 0-30 tablet by ity of tablet 00:00: mouth [place] 00 every 6 Medical (six) Branch hours as needed for Nausea and Vomiting (N/V). proMETHazin 2021-05 Yes [id number] 25mg Take 1 Univers e 25 mg 0-30 tablet by ity of tablet 00:00: mouth [place] 00 every 6 Medical (six) Branch hours as needed for Nausea and Vomiting (N/V). proMETHazin 2021-05 Yes [id number] 25mg Take 1 Univers e 25 mg 0-30 tablet by ity of tablet 00:00: mouth [place] 00 every 6 Medical (six) Branch hours as needed for Nausea and Vomiting (N/V). proMETHazin 2021-05 Yes [id number] 25mg Take 1 Univers e 25 mg 0-30 tablet by ity of tablet 00:00: mouth [place] 00 every 6 Medical (six) Branch hours as needed for Nausea and Vomiting (N/V). proMETHazin 2021-05 Yes [id number] 25mg Take 1 [facility] e 25 mg 0-30 tablet by ity of tablet 00:00: mouth [place] 00 every 6 Medical (six) Branch hours as needed for Nausea and Vomiting (N/V). proMETHazin 2021-05 Yes [id number] 25mg Take 1 [facility] e 25 mg 0-30 tablet by ity of tablet 00:00: mouth [place] 00 every 6 Medical (six) Branch hours as needed for Nausea and Vomiting (N/V). proMETHazin 2021-05 Yes [id number] 25mg Take 1 [facility] e 25 mg 0-30 tablet by ity of tablet 00:00: mouth [place] 00 every 6 Medical (six) Branch hours as needed for Nausea and Vomiting (N/V). proMETHazin 2021-05 Yes [id number] 25mg Take 1 [facility] e 25 mg 0-30 tablet by ity of tablet 00:00: mouth [place] 00 every 6 Medical (six) Branch hours as needed for Nausea and Vomiting (N/V). proMETHazin 2021-05 Yes [id number] 25mg Take 1 [facility] e 25 mg 0-30 tablet by ity of tablet 00:00: mouth [place] 00 every 6 Medical (six) Branch hours as needed for Nausea and Vomiting (N/V). proMETHazin 2021-05- No [id number] 25mg Take 1 [facility] e 25 mg 0-30 03-21 tablet by ity of tablet 00:00: 00:00 mouth [place] 00 :00 every 6 Medical (six) Branch hours as needed for Nausea and Vomiting (N/V). methocarbam 2021-05- No [id number] 500mg Take 1 [facility] oL 500 mg 0-30 11-26 tablet by ity of tablet 00:00: 00:00 mouth 3 [place] 00 :00 (three) Medical times Branch daily as needed for Pain (scale 7-10). topiramate 2021-05 Yes [id number] 100mg Take 4 [facility] 25 mg 0-21 tablets by ity of tablet 00:00: mouth in [place] 00 the Medical morning. Branch topiramate 2021-05 Yes [id number] 100mg Take 4 [facility] 25 mg 0-21 tablets by ity of tablet 00:00: mouth in [place] 00 the Medical morning. Branch topiramate 2021-05 Yes [id number] 100mg Take 4 [facility] 25 mg 0-21 tablets by ity of tablet 00:00: mouth in [place] 00 the Medical morning. Branch topiramate 2021-05 Yes [id number] 100mg Take 4 [facility] 25 mg 0-21 tablets by ity of tablet 00:00: mouth in [place] 00 the Medical morning. Branch topiramate 2021-05 Yes [id number] 100mg Take 4 [facility] 25 mg 0-21 tablets by ity of tablet 00:00: mouth in [place] 00 the Medical morning. Branch topiramate 2021- Yes [id number] 100mg Take 4 [facility] 25 mg 0-21 tablets by ity of tablet 00:00: mouth in [place] 00 the Medical morning. Branch topiramate 2021-05 Yes [id number] 100mg Take 4 [facility] 25 mg 0-21 tablets by ity of tablet 00:00: mouth in [place] 00 the Medical morning. Branch topiramate 2021- Yes [id number] 100mg Take 4 [facility] 25 mg 0-21 tablets by ity of tablet 00:00: mouth in [place] 00 the Medical morning. Branch topiramate 2021- Yes [id number] 100mg Take 4 [facility] 25 mg 0-21 tablets by ity of tablet 00:00: mouth in [place] 00 the Medical morning. Branch topiramate 2022-1 Yes [id number] 100mg Take 4 [facility] 25 mg 0-21 tablets by ity of tablet 00:00: mouth in [place] 00 the Medical morning. Branch topiramate 2022-1 Yes [id number] 100mg Take 4 [facility] 25 mg 0-21 tablets by ity of tablet 00:00: mouth in [place] 00 the Medical morning. Branch topiramate 2022-1 Yes [id number] 100mg Take 4 [facility] 25 mg 0-21 tablets by ity of tablet 00:00: mouth in [place] 00 the Medical morning. Branch topiramate 2-1 Yes [id number] 100mg Take 4 [facility] 25 mg 0-21 tablets by ity of tablet 00:00: mouth in [place] 00 the Medical morning. Branch topiramate 2-1 Yes [id number] 100mg Take 4 [facility] 25 mg 0-21 tablets by ity of tablet 00:00: mouth in [place] 00 the Medical morning. Branch topiramate 2-1 Yes [id number] 100mg Take 4 [facility] 25 mg 0-21 tablets by ity of tablet 00:00: mouth in [place] 00 the Medical morning. Branch topiramate 2-1 Yes [id number] 100mg Take 4 [facility] 25 mg 0-21 tablets by ity of tablet 00:00: mouth in [place] 00 the Medical morning. Branch topiramate 2-1 Yes [id number] 100mg Take 4 [facility] 25 mg 0-21 tablets by ity of tablet 00:00: mouth in [place] 00 the Medical morning. Branch topiramate 2-1 Yes [id number] 100mg Take 4 [facility] 25 mg 0-21 tablets by ity of tablet 00:00: mouth in [place] 00 the Medical morning. Branch topiramate 2-1 Yes [id number] 100mg Take 4 [facility] 25 mg 0-21 tablets by ity of tablet 00:00: mouth in [place] 00 the Medical morning. Branch topiramate 2022-1 Yes [id number] 100mg Take 4 [facility] 25 mg 0-21 tablets by ity of tablet 00:00: mouth in [place] 00 the Medical morning. Branch topiramate 2022-1 Yes [id number] 100mg Take 4 [facility] 25 mg 0-21 tablets by ity of tablet 00:00: mouth in [place] 00 the Medical morning. Branch topiramate 2022-1 Yes [id number] 100mg Take 4 [facility] 25 mg 0-21 tablets by ity of tablet 00:00: mouth in [place] 00 the Medical morning. Branch topiramate 2-1 Yes [id number] 100mg Take 4 [facility] 25 mg 0-21 tablets by ity of tablet 00:00: mouth in [place] 00 the Medical morning. Branch topiramate 2-1 Yes [id number] 100mg Take 4 [facility] 25 mg 0-21 tablets by ity of tablet 00:00: mouth in [place] 00 the Medical morning. Branch topiramate 2-1 Yes [id number] 100mg Take 4 [facility] 25 mg 0-21 tablets by ity of tablet 00:00: mouth in [place] 00 the Medical morning. Branch topiramate 2-1 Yes [id number] 100mg Take 4 [facility] 25 mg 0-21 tablets by ity of tablet 00:00: mouth in [place] 00 the Medical morning. Branch topiramate 2-1 Yes [id number] 100mg Take 4 [facility] 25 mg 0-21 tablets by ity of tablet 00:00: mouth in [place] 00 the Medical morning. Branch topiramate 2-1 Yes [id number] 100mg Take 4 [facility] 25 mg 0-21 tablets by ity of tablet 00:00: mouth in [place] 00 the Medical morning. Branch topiramate 2-1 Yes [id number] 100mg Take 4 [facility] 25 mg 0-21 tablets by ity of tablet 00:00: mouth in [place] 00 the Medical morning. Branch topiramate 2-1 Yes [id number] 100mg Take 4 [facility] 25 mg 0-21 tablets by ity of tablet 00:00: mouth in [place] 00 the Medical morning. Branch topiramate 2-1 Yes [id number] 100mg Take 4 [facility] 25 mg 0-21 tablets by ity of tablet 00:00: mouth in [place] 00 the Medical morning. Branch topiramate 2022-1 Yes [id number] 100mg Take 4 [facility] 25 mg 0-21 tablets by ity of tablet 00:00: mouth in [place] 00 the Medical morning. Branch topiramate 2022-1 Yes [id number] 100mg Take 4 [facility] 25 mg 0-21 tablets by ity of tablet 00:00: mouth in [place] 00 the Medical morning. Branch topiramate 2022-1 Yes [id number] 100mg Take 4 [facility] 25 mg 0-21 tablets by ity of tablet 00:00: mouth in [place] 00 the Medical morning. Branch topiramate 2021- Yes [id number] 100mg Take 4 [facility] 25 mg 0-21 tablets by ity of tablet 00:00: mouth in [place] 00 the Medical morning. Branch topiramate 2021- Yes [id number] 100mg Take 4 [facility] 25 mg 0-21 tablets by ity of tablet 00:00: mouth in [place] 00 the Medical morning. Branch topiramate 2021- Yes [id number] 100mg Take 4 [facility] 25 mg 0-21 tablets by ity of tablet 00:00: mouth in [place] 00 the Medical morning. Branch topiramate 2021- Yes [id number] 100mg Take 4 [facility] 25 mg 0-21 tablets by ity of tablet 00:00: mouth in [place] 00 the Medical morning. Branch topiramate 2021- Yes [id number] 100mg Take 4 [facility] 25 mg 0-21 tablets by ity of tablet 00:00: mouth in [place] 00 the Medical morning. Branch topiramate 2021- Yes [id number] 100mg Take 4 [facility] 25 mg 0-21 tablets by ity of tablet 00:00: mouth in [place] 00 the Medical morning. Branch topiramate 2021-05 Yes [id number] 100mg Take 4 [facility] 25 mg 0-21 tablets by ity of tablet 00:00: mouth in [place] 00 the Medical morning. Branch topiramate 2021- Yes [id number] 100mg Take 4 [facility] 25 mg 0-21 tablets by ity of tablet 00:00: mouth in [place] 00 the Medical morning. Branch topiramate 2021- Yes [id number] 100mg Take 4 [facility] 25 mg 0-21 tablets by ity of tablet 00:00: mouth in [place] 00 the Medical morning. Branch topiramate 2021- Yes [id number] 100mg Take 4 [facility] 25 mg 0-21 tablets by ity of tablet 00:00: mouth in [place] 00 the Medical morning. Branch diphenhydrA 2021-2021- No 25mg Take 25 mg [facility] MINE 25 mg 0-18 10-18 by mouth ity of capsule 09:39: 00:00 every 6 [place] 59 :00 (six) Medical hours as Branch needed for Allergies. diphenhydrA 2021-2021- No 25mg Take 25 mg [facility] MINE 25 mg 0-18 10-18 by mouth ity of capsule 09:39: 00:00 every 6 [place] 59 :00 (six) Medical hours as Branch [...] 28 :00 Medical Branch albuterol 2021-05 Yes [id number] 2{puff} Inhale 2 [facility] 90 0-18 Puffs ity of mcg/actuati 00:00: every 6 [place] on inhaler 00 (six) Medical hours as Branch needed for Wheezing or Shortness of Breath. albuterol 2021-05 Yes [id number] 2{puff} Inhale 2 [facility] 90 0-18 Puffs ity of mcg/actuati 00:00: every 6 [place] on inhaler 00 (six) Medical hours as Branch needed for Wheezing or Shortness of Breath. albuterol 2021-05 Yes [id number] 2{puff} Inhale 2 [facility] 90 0-18 Puffs ity of mcg/actuati 00:00: every 6 [place] on inhaler 00 (six) Medical hours as Branch needed for Wheezing or Shortness of Breath. albuterol 2021-05 Yes [id number] 2{puff} Inhale 2 [facility] 90 0-18 Puffs ity of mcg/actuati 00:00: every 6 [place] on inhaler 00 (six) Medical hours as Branch needed for Wheezing or Shortness of Breath. albuterol 2021-05 Yes [id number] 2{puff} Inhale 2 [facility] 90 0-18 Puffs ity of mcg/actuati 00:00: every 6 [place] on inhaler 00 (six) Medical hours as Branch needed for Wheezing or Shortness of Breath. albuterol 2021-05 Yes [id number] 2{puff} Inhale 2 [facility] 90 0-18 Puffs ity of mcg/actuati 00:00: every 6 [place] on inhaler 00 (six) Medical hours as Branch needed for Wheezing or Shortness of Breath. albuterol 2021-05 Yes [id number] 2{puff} Inhale 2 [facility] 90 0-18 Puffs ity of mcg/actuati 00:00: every 6 [place] on inhaler 00 (six) Medical hours as Branch needed for Wheezing or Shortness of Breath. albuterol 2021-05 Yes [id number] 2{puff} Inhale 2 [facility] 90 0-18 Puffs ity of mcg/actuati 00:00: every 6 [place] inhaler 00 (six) Medical hours as Branch needed for Wheezing or Shortness of Breath. albuterol 2021-05 Yes [id number] 2{puff} Inhale 2 [facility] 90 0-18 Puffs ity of mcg/actuati 00:00: every 6 [place] inhaler 00 (six) Medical hours as Branch needed for Wheezing or Shortness of Breath. albuterol 2021-05 Yes [id number] 2{puff} Inhale 2 [facility] 90 0-18 Puffs ity of mcg/actuati 00:00: every 6 [place] inhaler 00 (six) Medical hours as Branch needed for Wheezing or Shortness of Breath. albuterol 2021-05 Yes [id number] 2{puff} Inhale 2 [facility] 90 0-18 Puffs ity of mcg/actuati 00:00: every 6 [place] inhaler 00 (six) Medical hours as Branch needed for Wheezing or Shortness of Breath. albuterol 2021-05 Yes [id number] 2{puff} Inhale 2 [facility] 90 0-18 Puffs ity of mcg/actuati 00:00: every 6 [place] on inhaler 00 (six) Medical hours as Branch needed for Wheezing or Shortness of Breath. albuterol 2021-05 Yes [id number] 2{puff} Inhale 2 [facility] 90 0-18 Puffs ity of mcg/actuati 00:00: every 6 [place] on inhaler 00 (six) Medical hours as Branch needed for Wheezing or Shortness of Breath. albuterol 2021-05 Yes [id number] 2{puff} Inhale 2 [facility] 90 0-18 Puffs ity of mcg/actuati 00:00: every 6 [place] on inhaler 00 (six) Medical hours as Branch needed for Wheezing or Shortness of Breath. albuterol 2021-05 Yes [id number] 2{puff} Inhale 2 [facility] 90 0-18 Puffs ity of mcg/actuati 00:00: every 6 [place] on inhaler 00 (six) Medical hours as Branch needed for Wheezing or Shortness of Breath. albuterol 2021-05 Yes [id number] 2{puff} Inhale 2 [facility] 90 0-18 Puffs ity of mcg/actuati 00:00: every 6 [place] on inhaler 00 (six) Medical hours as Branch needed for Wheezing or Shortness of Breath. albuterol 2021-05 Yes [id number] 2{puff} Inhale 2 [facility] 90 0-18 Puffs ity of mcg/actuati 00:00: every 6 [place] on inhaler 00 (six) Medical hours as Branch needed for Wheezing or Shortness of Breath. albuterol 2021-05 Yes [id number] 2{puff} Inhale 2 [facility] 90 0-18 Puffs ity of mcg/actuati 00:00: every 6 [place] on inhaler 00 (six) Medical hours as Branch needed for Wheezing or Shortness of Breath. albuterol 2021-05 Yes [id number] 2{puff} Inhale 2 [facility] 90 0-18 Puffs ity of mcg/actuati 00:00: every 6 [place] on inhaler 00 (six) Medical hours as Branch needed for Wheezing or Shortness of Breath. albuterol 2021-05 Yes [id number] 2{puff} Inhale 2 [facility] 90 0-18 Puffs ity of mcg/actuati 00:00: every 6 [place] on inhaler 00 (six) Medical hours as Branch needed for Wheezing or Shortness of Breath. albuterol 2021-05 Yes [id number] 2{puff} Inhale 2 [facility] 90 0-18 Puffs ity of mcg/actuati 00:00: every 6 [place] on inhaler 00 (six) Medical hours as Branch needed for Wheezing or Shortness of Breath. albuterol 2021-05 Yes [id number] 2{puff} Inhale 2 [facility] 90 0-18 Puffs ity of mcg/actuati 00:00: every 6 [place] on inhaler 00 (six) Medical hours as Branch needed for Wheezing or Shortness of Breath. albuterol 2021-05 Yes [id number] 2{puff} Inhale 2 [facility] 90 0-18 Puffs ity of mcg/actuati 00:00: every 6 [place] on inhaler 00 (six) Medical hours as Branch needed for Wheezing or Shortness of Breath. albuterol 2021-05 Yes [id number] 2{puff} Inhale 2 [facility] 90 0-18 Puffs ity of mcg/actuati 00:00: every 6 [place] on inhaler 00 (six) Medical hours as Branch needed for Wheezing or Shortness of Breath. albuterol 2021-05 Yes [id number] 2{puff} Inhale 2 [facility] 90 0-18 Puffs ity of mcg/actuati 00:00: every 6 [place] on inhaler 00 (six) Medical hours as Branch needed for Wheezing or Shortness of Breath. albuterol 2021-05 Yes [id number] 2{puff} Inhale 2 [facility] 90 0-18 Puffs ity of mcg/actuati 00:00: every 6 [place] on inhaler 00 (six) Medical hours as Branch needed for Wheezing or Shortness of Breath. albuterol 2021-05 Yes [id number] 2{puff} Inhale 2 [facility] 90 0-18 Puffs ity of mcg/actuati 00:00: every 6 [place] on inhaler 00 (six) Medical hours as Branch needed for Wheezing or Shortness of Breath. albuterol 2021-05 Yes [id number] 2{puff} Inhale 2 [facility] 90 0-18 Puffs ity of mcg/actuati 00:00: every 6 [place] on inhaler 00 (six) Medical hours as Branch needed for Wheezing or Shortness of Breath. albuterol 2021-05 Yes [id number] 2{puff} Inhale 2 [facility] 90 0-18 Puffs ity of mcg/actuati 00:00: every 6 [place] on inhaler 00 (six) Medical hours as Branch needed for Wheezing or Shortness of Breath. albuterol 2021-05 Yes [id number] 2{puff} Inhale 2 [facility] 90 0-18 Puffs ity of mcg/actuati 00:00: every 6 [place] on inhaler 00 (six) Medical hours as Branch needed for Wheezing or Shortness of Breath. albuterol 2021-05 Yes [id number] 2{puff} Inhale 2 [facility] 90 0-18 Puffs ity of mcg/actuati 00:00: every 6 [place] on inhaler 00 (six) Medical hours as Branch needed for Wheezing or Shortness of Breath. albuterol 2021-05 Yes [id number] 2{puff} Inhale 2 [facility] 90 0-18 Puffs ity of mcg/actuati 00:00: every 6 [place] on inhaler 00 (six) Medical hours as Branch needed for Wheezing or Shortness of Breath. albuterol 2021-05 Yes [id number] 2{puff} Inhale 2 [facility] 90 0-18 Puffs ity of mcg/actuati 00:00: every 6 [place] on inhaler 00 (six) Medical hours as Branch needed for Wheezing or Shortness of Breath. albuterol 2021-05 Yes [id number] 2{puff} Inhale 2 [facility] 90 0-18 Puffs ity of mcg/actuati 00:00: every 6 [place] on inhaler 00 (six) Medical hours as Branch needed for Wheezing or Shortness of Breath. albuterol 2021-05 Yes [id number] 2{puff} Inhale 2 [facility] 90 0-18 Puffs ity of mcg/actuati 00:00: every 6 [place] on inhaler 00 (six) Medical hours as Branch needed for Wheezing or Shortness of Breath. albuterol 2021-05 Yes [id number] 2{puff} Inhale 2 [facility] 90 0-18 Puffs ity of mcg/actuati 00:00: every 6 [place] on inhaler 00 (six) Medical hours as Branch needed for Wheezing or Shortness of Breath. albuterol 2021-05 Yes [id number] 2{puff} Inhale 2 [facility] 90 0-18 Puffs ity of mcg/actuati 00:00: every 6 [place] on inhaler 00 (six) Medical hours as Branch needed for Wheezing or Shortness of Breath. albuterol 2021-05 Yes [id number] 2{puff} Inhale 2 [facility] 90 0-18 Puffs ity of mcg/actuati 00:00: every 6 [place] on inhaler 00 (six) Medical hours as Branch needed for Wheezing or Shortness of Breath. albuterol 2021-05 Yes [id number] 2{puff} Inhale 2 [facility] 90 0-18 Puffs ity of mcg/actuati 00:00: every 6 [place] on inhaler 00 (six) Medical hours as Branch needed for Wheezing or Shortness of Breath. albuterol 2021-05 Yes [id number] 2{puff} Inhale 2 [facility] 90 0-18 Puffs ity of mcg/actuati 00:00: every 6 [place] on inhaler 00 (six) Medical hours as Branch needed for Wheezing or Shortness of Breath. albuterol 2021-05 Yes [id number] 2{puff} Inhale 2 [facility] 90 0-18 Puffs ity of mcg/actuati 00:00: every 6 [place] on inhaler 00 (six) Medical hours as Branch needed for Wheezing or Shortness of Breath. albuterol 2021-05 Yes [id number] 2{puff} Inhale 2 [facility] 90 0-18 Puffs ity of mcg/actuati 00:00: every 6 [place] on inhaler 00 (six) Medical hours as Branch needed for Wheezing or Shortness of Breath. albuterol 2021-05 Yes [id number] 2{puff} Inhale 2 [facility] 90 0-18 Puffs ity of mcg/actuati 00:00: every 6 [place] on inhaler 00 (six) Medical hours as Branch needed for Wheezing or Shortness of Breath. albuterol 2021-05 Yes [id number] 2{puff} Inhale 2 [facility] 90 0-18 Puffs ity of mcg/actuati 00:00: every 6 [place] on inhaler 00 (six) Medical hours as Branch needed for Wheezing or Shortness of Breath. albuterol 2021-05 Yes [id number] 2{puff} Inhale 2 [facility] 90 0-18 Puffs ity of mcg/actuati 00:00: every 6 [place] on inhaler 00 (six) Medical hours as Branch needed for Wheezing or Shortness of Breath. albuterol 2021-05 Yes [id number] 2{puff} Inhale 2 [facility] 90 0-18 Puffs ity of mcg/actuati 00:00: every 6 [place] on inhaler 00 (six) Medical hours as Branch needed for Wheezing or Shortness of Breath. albuterol 2021-05 Yes [id number] 2{puff} Inhale 2 [facility] 90 0-18 Puffs ity of mcg/actuati 00:00: every 6 [place] on inhaler 00 (six) Medical hours as Branch needed for Wheezing or Shortness of Breath. albuterol 2021-05 Yes [id number] 2{puff} Inhale 2 [facility] 90 0-18 Puffs ity of mcg/actuati 00:00: every 6 [place] on inhaler 00 (six) Medical hours as Branch needed for Wheezing or Shortness of Breath. albuterol 2021-05 Yes [id number] 2{puff} Inhale 2 [facility] 90 0-18 Puffs [...] a 24 hour period. benzonatate 2021-05- No [id number] 200mg Take 1 [facility] 200 mg 0-18 10-26 capsule by ity of capsule 00:00: 04:59 mouth 3 [place] 00 :00 (three) Medical times Branch daily as needed for Cough for up to 7 days. benzonatate 2021-05- No [id number] 200mg Take 1 [facility] 200 mg 0-18 10-26 capsule by ity of capsule 00:00: 04:59 mouth 3 [place] 00 :00 (three) Medical times Branch daily as needed for Cough for up to 7 days. benzonatate 2021-05- No [id number] 200mg Take 1 [facility] 200 mg 0-18 10-26 capsule by ity of capsule 00:00: 04:59 mouth 3 [place] 00 :00 (three) Medical times Branch daily as needed for Cough for up to 7 days. benzonatate 2021-05- No [id number] 200mg Take 1 [facility] 200 mg 0-18 10-26 capsule by ity of capsule 00:00: 04:59 mouth 3 [place] 00 :00 (three) Medical times Branch daily as needed for Cough for up to 7 days. benzonatate 2021-05- No [id number] 200mg Take 1 [facility] 200 mg 0-18 10-26 capsule by ity of capsule 00:00: 04:59 mouth 3 [place] 00 :00 (three) Medical times Branch daily as needed for Cough for up to 7 days. benzonatate 2021-05- No [id number] 200mg Take 1 [facility] 200 mg 0-18 10-26 capsule by ity of capsule 00:00: 04:59 mouth 3 [place] 00 :00 (three) Medical times [place] daily as needed for Cough for up to 7 days. SUMAtriptan 2021-05 No [id number] 50mg Take 1 [facility] 50 mg 0-27 02- 9105 tablet by ity of tablet 00:00: 04:59 mouth [place] 00 :00 now for 1 Medical dose. [place] SUMAtriptan 2021-05 No [id number] 50mg Take 1 [facility] 50 mg 0-18 - 9105 tablet by ity of tablet 00:00: 04:59 mouth [place] 00 :[place] now for 1 Medical dose. [place] butalbital- 2021-05 No 1{tbl} 1 tablet, Univers acetaminoph 0-12 -12 Oral, ity of en-caff 08:15: 08:09 ONCE, 1 [place] (ESGIC) 00 :00 dose, On Medical 50-325-40 Wed Branch mg tablet 1 02/21/22 tablet at 0315, [place] butorphanol 2021-05 No 1mg 1 mg, IV U nivers (STADOL) 0-12 -12 Push, ity of injection 1 08:15: 07:28 ONCE, 1 [place] mg 00 :00 dose, On Medical [facility] 02/21/22 at 0315, Routine NaCl 0.9% 2021-05 1000mL at 999 Uni vers (NS) bolus 0-12 10-12 mL/hr, ity of infusion 07:15: 08:40 1,000 mL, [place] 1,000 mL 00 :00 IV Medical Infusion, [place] ONCE, 1 dose, On [facility] 02/21/22 at 0215, [place] proMETHazin 2021-05 No 12.5mg 12.5 mg, Univers e 0-12 -12 IV ity of (PHENERGAN) 06:30: 06:38 Piggyback, [place] 12.5 mg in 00 :00 ONCE, 1 Medica l NaCl 0.9% dose, On [place] (NS) 50 mL Wed IV 02/21/22 piggyback [...] Medical dose, On Branch [facility] 02/21/22 at 0130, [place] diphenhydrA 2021-05 [...] 1 Medical 50 mcg dose, On Branch Er[place] 02/18/22 at 1530, Routine ketorolac 2021-05 No 30mg 30 mg, Unive rs (TORADOL) 02-18 Slow IV ity of injection 20:15: 20:09 Push, [place] 30 mg 00 :00 ONCE, 1 Medical dose, On Branch Errol 02/18/22 at 1515, [place] iopamidol 2021-05 No [id number] 60mL 60 mL, Un sushant (ISOVUE 02-18 [...] ONCE, 1 Medical 50 mcg dose, On [facility] 02/18/22 at 1300, Routine ondansetron 2021-05- No 4mg 4 mg, Slow Univers (ZOFRAN 02-18 IV Push, ity of (PF)) 17:15: 17:27 ONCE, 1 [place] injection 4 00 :00 dose, On Medi yessi mg [facility] 02/18/22 at 1215, [place] morpHINE (2 2021- No 4mg 4 mg, Slow Univers mg/mL) 01-18 IV Push, ity of injection 4 15:15: 14:49 ONCE, 1 [place] mg 00 :[place] dose, On [facility] 01/18/22 Branch at 1015, STAT ondansetron 2021- No 4mg 4 mg, Slow Univers (ZOFRAN 01-18 IV Push, ity of (PF)) 13:30: 13:33 ONCE, 1 [place] injection 4 00 :00 dose, On Medi yessi mg [facility] 01/18/22 Branch at 0830, [place] morpHINE (4 2021- No 4mg 4 mg, Slow Univers mg/mL) 01-18 IV Push, ity of injection 4 13:30: 13:34 ONCE, 1 [place] mg 00 :00 dose, On [facility] 01/18/22 Branch at 0830, STAT morpHINE (4 2021- No 4mg 4 mg, Slow Univers mg/mL) 01-18 IV Push, ity of injection 4 12:30: 11:39 ONCE, 1 [place] mg 00 :00 dose, On [facility] 01/18/22 Branch at 0730, STAT famotidine 2021- No 20mg 20 mg, Univ ers (PEPCID 01-18 Slow IV ity of (PF)) 11:30: 10:52 Push, [place] injection 00 :00 ONCE, 1 Medical 20 mg dose, On [facility] 01/18/22 at 0630, [place] ondansetron 2021- No 4mg 4 mg, Slow Univers (ZOFRAN 01-18 IV Push, ity of (PF)) 11:30: 10:52 ONCE, 1 [place] injection 4 00 :00 dose, On Medi yessi mg [place] 01/18/22 Branch at 0630, [place] iodixanoL 2021-0 2021- No [id number] 80mL 80 mL, U nivers (VISIPAQUE 01-18 [...] Indication s: acute pain ondansetron 0 Yes [id number] 4mg Take 1 Univers 4 mg 01-18 [id number] tablet by ity of disintegrat 00:00: mouth [place] ing tablet 00 every 8 Medica l (eight) Branch hours as needed for Nausea and Vomiting (N/V). ibuprofen 2021-0 Yes [id number] 600mg Take 1 [facility] 600 mg 01-18 [id number] tablet by ity of tablet 00:00: mouth [place] 00 every 6 Medical (six) Branch hours as needed for Pain (scale 4-6). traMADoL 50 2022-0 Yes [id number] 50mg Take 1 Univ ers mg tablet 9-08 tablet by ity o f 00:00: mouth [place] 00 every 6 Medical (six) Branch hours as needed for Pain (scale 7-10). Indication s: acute pain ondansetron 2022-0 Yes [id number] 4mg Take 1 Univers 4 mg 9-08 [id number] tablet by ity of disintegrat 00:00: mouth [place] ing tablet 00 every 8 Medica l (eight) Branch hours as needed for Nausea and Vomiting (N/V). ibuprofen 2022-0 Yes [id number] 600mg Take 1 [facility] 600 mg 9-08 [id number] tablet by ity of tablet 00:00: mouth [place] 00 every 6 Medical (six) Branch hours as needed for Pain (scale 4-6). traMADoL 50 2021-0 Yes [id number] 50mg Take 1 Univ ers mg tablet 9-08 tablet by ity o f 00:00: mouth [place] 00 every 6 Medical (six) Branch hours as needed for Pain (scale 7-10). Indication s: acute pain ondansetron 2022-0 Yes [id number] 4mg Take 1 Univers 4 mg 9-08 [id number] tablet by ity of disintegrat 00:00: mouth [place] ing tablet 00 every 8 Medica l (eight) Branch hours as needed for Nausea and Vomiting (N/V). ibuprofen 2022-0 Yes [id number] 600mg Take 1 [facility] 600 mg 9-08 [id number] tablet by ity of tablet 00:00: mouth [place] 00 every 6 Medical (six) Branch hours as needed for Pain (scale 4-6). traMADoL 50 2022-0 Yes [id number] 50mg Take 1 [facility] mg tablet 9-08 tablet by ity o f 00:00: mouth [place] 00 every 6 Medical (six) Branch hours as needed for Pain (scale 7-10). Indication s: acute pain ondansetron 2022-0 Yes [id number] 4mg Take 1 [facility] 4 mg 9-08 [id number] tablet by ity of disintegrat 00:00: mouth [place] ing tablet 00 every 8 Medica l (eight) Branch hours as needed for Nausea and Vomiting (N/V). ibuprofen 2022-0 Yes [id number] 600mg Take 1 [facility] 600 mg 9-08 [id number] tablet by ity of tablet 00:00: mouth [place] 00 every 6 Medical (six) Branch hours as needed for Pain (scale 4-6). traMADoL 50 2022-0 Yes [id number] 50mg Take 1 [facility] mg tablet 9-08 tablet by ity o f 00:00: mouth [place] 00 every 6 Medical (six) Branch hours as needed for Pain (scale 7-10). Indication s: acute pain ondansetron 2022-0 Yes [id number] 4mg Take 1 [facility] 4 mg 9-08 [id number] tablet by ity of disintegrat 00:00: mouth [place] ing tablet 00 every 8 Medica l (eight) Branch hours as needed for Nausea and Vomiting (N/V). ibuprofen 2022-0 Yes [id number] 600mg Take 1 [facility] 600 mg 9-08 [id number] tablet by ity of tablet 00:00: mouth [place] 00 every 6 Medical (six) Branch hours as needed for Pain (scale 4-6). traMADoL 50 2022-0 Yes [id number] 50mg Take 1 [facility] mg tablet 9-08 tablet by ity o f 00:00: mouth [place] 00 every 6 Medical (six) Branch hours as needed for Pain (scale 7-10). Indication s: acute pain ondansetron 2022-0 Yes [id number] 4mg Take 1 [facility] 4 mg 9-08 [id number] tablet by ity of disintegrat 00:00: mouth [place] ing tablet 00 every 8 Medica l (eight) Branch hours as needed for Nausea and Vomiting (N/V). ibuprofen 2022-0 Yes [id number] 600mg Take 1 [facility] 600 mg 9-08 [id number] tablet by ity of tablet 00:00: mouth [place] 00 every 6 Medical (six) Branch hours as needed for Pain (scale 4-6). traMADoL 50 2022-0 Yes [id number] 50mg Take 1 [facility] mg tablet 9-08 tablet by ity o f 00:00: mouth [place] 00 every 6 Medical (six) Branch hours as needed for Pain (scale 7-10). Indication s: acute pain ondansetron 2022-0 Yes [id number] 4mg Take 1 [facility] 4 mg 9-08 [id number] tablet by ity of disintegrat 00:00: mouth [place] ing tablet 00 every 8 Medica l (eight) Branch hours as needed for Nausea and Vomiting (N/V). ibuprofen 2022-0 Yes [id number] 600mg Take 1 [facility] 600 mg 9-08 [id number] tablet by ity of tablet 00:00: mouth [place] 00 every 6 Medical (six) Branch hours as needed for Pain (scale 4-6). traMADoL 50 2021-0 Yes [id number] 50mg Take 1 [facility] mg tablet 9-08 tablet by ity o f 00:00: mouth [place] 00 every 6 Medical (six) Branch hours as needed for Pain (scale 7-10). Indication s: acute pain ondansetron 0 Yes [id number] 4mg Take 1 [facility] 4 mg 9- [id number] tablet by ity of disintegrat 00:00: mouth [place] ing tablet 00 every 8 Medica l (eight) Branch hours as needed for Nausea and Vomiting (N/V). ibuprofen 0 Yes [id number] 600mg Take 1 [facility] 600 mg 9- [id number] tablet by ity of tablet 00:00: mouth [place] 00 every 6 Medical (six) Branch hours as needed for Pain (scale 4-6). traMADoL 50 2021- No [id number] 50mg Take 1 [facility] vers mg tablet 01-18-18 tablet by ity of 00:00: 00:00 mouth [place] 00 :00 every 6 Medical (six) Branch hours as needed for Pain (scale 7-10). Indication s: acute pain ondansetron 2021-2021- No [id number] 4mg Take 1 [facility] 4 mg 9-12 20- [id number] tablet by [facility] disintegrat 00:00: 00:00 [place] tablet 00 :00 every 8 Medica l (eight) Branch hours as needed for Nausea and Vomiting (N/V). ibuprofen 2021- No [id number] 600mg Take 1 [facility] 600 mg 9-12 20-18 [id number] tablet by ity o f tablet 00:00: 00:00 mouth [place] 00 :00 every 6 Medical (six) Branch hours as needed for Pain (scale 4-6). traMADoL 50 2021-0 2021- No [id number] 50mg Take 1 [facility] vers mg tablet - 10-18 tablet by ity of 00:00: 00:00 mouth [place] 00 :00 every 6 Medical (six) Branch hours as needed for Pain (scale 7-10). Indication s: acute pain ondansetron 2021- No [id number] 4mg Take 1 [facility] 4 mg 01-18 [id number] tablet by it[facility] of disintegrat 00:00: 00:00 [place] tablet 00 :00 every 8 Medica l (eight) Branch hours as needed for Nausea and Vomiting (N/V). ibuprofen 2021- No [id number] 600mg Take 1 [facility] 600 mg 01-18 [id number] tablet by ity o f tablet 00:00: [...] Indication s: acute pain ondansetron 2021- No [id number] 4mg Take 1 [facility] 4 mg 01-18 [id number] tablet by [facility] of disintegrat 00:00: 00:00 [place] tablet 00 :00 every 8 Medica l (eight) Branch hours as needed for Nausea and Vomiting (N/V). ibuprofen 2021- No [id number] 600mg Take 1 [facility] 600 mg 01-18 [id number] tablet by ity o f tablet 00:00: [...] Indication s: acute pain ondansetron 2021- No [id number] 4mg Take 1 [facility] 4 mg 01-18 [id number] tablet by [facility] of disintegrat 00:00: 00:00 [place] tablet 00 :00 every 8 Medica l (eight) Branch hours as needed for Nausea and Vomiting (N/V). ibuprofen 2021- No [id number] 600mg Take 1 [facility] 600 mg 01-18 [id number] tablet by ity o f tablet 00:00: 00:00 mouth [place] 00 :00 every 6 Medical (six) Branch hours as needed for Pain (scale 4-6). predniSONE 2021- No [id number] 40mg Take 2 [facility] 20 mg 01-16 tablets by ity of tablet 00:00: 04:59 mouth in [place] 00 :[address] [facility] Branch for 7 days. predniSONE 2021- No [id number] 40mg Take 2 [facility] 20 mg 01-16 tablets by ity of tablet 00:00: 04:59 mouth in [place] 00 :[address] [facility] Branch for 7 days. morpHINE (4 2021- No 4mg 4 mg, Slow [facility] mg/mL) 01-15 IV Push, ity of injection 4 16:15: 15:28 ONCE, 1 [place] mg 00 :00 dose, On Medical [facility] 01/15/22 Branch at 1115, [place] proMETHazin [...] Infusion, Branch ONCE, 1 dose, On [facility] 01/15/22 at 1000, [place] morpHINE (4 No 4mg 4 mg, Slow [facility] mg/mL) 01-15 IV Push, ity of injection 4 15:00: 14:37 ONCE, 1 [place] mg 00 :00 dose, On Medical [facility] 01/15/22 Branch at 1000, [place] ondansetron 2021- [...] 01/15/22 at 0915, 1 mL proMETHazin Yes [id number] 25mg Take 1 [facility] e 25 mg 9-05 tablet by ity of tablet 00:00: mouth [place] 00 every 6 Medical (six) Branch hours as needed for Nausea and Vomiting (N/V). proMETHazin 2021-0 Yes [id number] 25mg Take 1 [facility] e 25 mg 9-05 tablet by ity of tablet 00:00: mouth [place] 00 every 6 Medical (six) Branch hours as needed for Nausea and Vomiting (N/V). proMETHazin Yes [id number] 25mg Take 1 [facility] e 25 mg 9-05 tablet by ity of tablet 00:00: mouth [place] 00 every 6 Medical (six) Branch hours as needed for Nausea and Vomiting (N/V). proMETHazin 2021-0 Yes [id number] 25mg Take 1 [facility] e 25 mg 9-05 tablet by ity of tablet 00:00: mouth [place] 00 every 6 Medical (six) Branch hours as needed for Nausea and Vomiting (N/V). proMETHazin 2021-0 Yes [id number] 25mg Take 1 [facility] e 25 mg 9-05 tablet by ity of tablet 00:00: mouth [place] 00 every 6 Medical (six) Branch hours as needed for Nausea and Vomiting (N/V). proMETHazin 2021-0 Yes [id number] 25mg Take 1 [facility] e 25 mg 9-05 tablet by ity of tablet 00:00: mouth [place] 00 every 6 Medical (six) Branch hours as needed for Nausea and Vomiting (N/V). proMETHazin 2021-0 Yes [id number] 25mg Take 1 [facility] e 25 mg 9-05 tablet by ity of tablet 00:00: mouth [place] 00 every 6 Medical (six) Branch hours as needed for Nausea and Vomiting (N/V). proMETHazin Yes [id number] 25mg Take 1 [facility] e 25 mg 9-05 tablet by ity of tablet 00:00: mouth [place] 00 every 6 Medical (six) Branch hours as needed for Nausea and Vomiting (N/V). proMETHazin 0 Yes [id number] 25mg Take 1 [facility] e 25 mg 9-05 tablet by ity of tablet 00:00: mouth [place] 00 every 6 Medical (six) Branch hours as needed for Nausea and Vomiting (N/V). proMETHazin 2021- No [id number] 25mg Take 1 [facility] e 25 mg 9-05 10-18 tablet by ity of tablet 00:00: 00:00 mouth [place] 00 :00 every 6 Medical (six) Branch hours as needed for Nausea and Vomiting (N/V). proMETHazin 2021- No [id number] 25mg Take 1 [facility] e 25 mg 9-05 10-18 tablet by ity of tablet 00:00: 00:00 mouth [place] 00 :00 every 6 Medical (six) Branch hours as needed for Nausea and Vomiting (N/V). proMETHazin 2021- No [id number] 25mg Take 1 [facility] e 25 mg 9-05 10-18 tablet by ity of tablet 00:00: 00:00 mouth [place] 00 :00 every 6 Medical (six) Branch hours as needed for Nausea and Vomiting (N/V). proMETHazin 2021- No [id number] 25mg Take 1 [facility] e 25 mg 9-05 10-18 tablet by ity of tablet 00:00: 00:00 mouth [place] 00 :00 every 6 Medical (six) Branch hours as needed for Nausea and Vomiting (N/V). ondansetron 2021- No 4mg 4 mg, Univ ers (ZOFRAN-ODT -09 01-30 Oral, ity of ) 01:45: 00:56 ONCE, [...] On Branch Sat01/08/22 at 1845, [place] ondansetron Yes [id number] 4mg Take 1 [facility] 4 mg 8-29 tablet by ity of disintegrat 00:00: mouth [place] ing tablet 00 every 8 Medica l (eight) Branch hours as needed for Nausea and Vomiting (N/V). acetaminoph Yes [id number] 650mg Take 1 [facility] en (TYLENOL 8-29 tablet by ity of ARTHRITIS 00:00: mouth [place] PAIN) 650 00 every 8 Medical mg CR (eight) Branch tablet hours as needed for Pain. ketorolac 0 Yes [id number] 10mg Take 1 [facility] n[facility] 10 mg 8-29 tablet by ity of tablet 00:00: mouth [place] 00 every 6 Medical (six) Branch hours as needed for Pain (scale 4-6) or Pain (scale 7-10). metaxalone 0 Yes [id number] 800mg Take 1 [facility] (SKELAXIN) 8-29 tablet by ity of 800 mg 00:00: mouth in [place] tablet 00 the Medical morning Branch and 1 tablet at noon and 1 tablet in the evening. ondansetron 0 Yes [id number] 4mg Take 1 [facility] 4 mg 8-29 tablet by ity of disintegrat 00:00: mouth [place] ing tablet 00 every 8 Medica l (eight) Branch hours as needed for Nausea and Vomiting (N/V). acetaminoph 2022-0 Yes [id number] 650mg Take 1 [facility] en (TYLENOL 8-29 tablet by ity of ARTHRITIS 00:00: mouth [place] PAIN) 650 00 every 8 Medical mg CR (eight) Branch tablet hours as needed for Pain. ketorolac 2022-0 Yes [id number] 10mg Take 1 [facility] nivers 10 mg 8-29 tablet by ity of tablet 00:00: mouth [place] 00 every 6 Medical (six) Branch hours as needed for Pain (scale 4-6) or Pain (scale 7-10). metaxalone 2022-0 Yes [id number] 800mg Take 1 [facility] (SKELAXIN) 8-29 tablet by ity of 800 mg 00:00: mouth in [place] tablet 00 the Medical morning Branch and 1 tablet at noon and 1 tablet in the evening. ondansetron 2-0 Yes [id number] 4mg Take 1 [facility] 4 mg 8-29 tablet by ity of disintegrat 00:00: mouth [place] ing tablet 00 every 8 Medica l (eight) Branch hours as needed for Nausea and Vomiting (N/V). acetaminoph 2-0 Yes [id number] 650mg Take 1 [facility] en (TYLENOL 8-29 tablet by ity of ARTHRITIS 00:00: mouth [place] PAIN) 650 00 every 8 Medical mg CR (eight) Branch tablet hours as needed for Pain. ketorolac 2022-0 Yes [id number] 10mg Take 1 U nivers 10 mg 8-29 tablet by ity of tablet 00:00: mouth [place] 00 every 6 Medical (six) Branch hours as needed for Pain (scale 4-6) or Pain (scale 7-10). metaxalone 2022-0 Yes [id number] 800mg Take 1 [facility] (SKELAXIN) 8-29 tablet by ity of 800 mg 00:00: mouth in [place] tablet 00 the Medical morning Branch and 1 tablet at noon and 1 tablet in the evening. ondansetron 2022-0 Yes [id number] 4mg Take 1 [facility] 4 mg 8-29 tablet by ity of disintegrat 00:00: mouth [place] ing tablet 00 every 8 Medica l (eight) Branch hours as needed for Nausea and Vomiting (N/V). acetaminoph 2022-0 Yes [id number] 650mg Take 1 [facility] en (TYLENOL 8-29 tablet by ity of ARTHRITIS 00:00: mouth [place] PAIN) 650 00 every 8 Medical mg CR (eight) Branch tablet hours as needed for Pain. ketorolac 2022-0 Yes [id number] 10mg Take 1 U nivers 10 mg 8-29 tablet by ity of tablet 00:00: mouth [place] 00 every 6 Medical (six) Branch hours as needed for Pain (scale 4-6) or Pain (scale 7-10). metaxalone 2022-0 Yes [id number] 800mg Take 1 [facility] (SKELAXIN) 8-29 tablet by ity of 800 mg 00:00: mouth in [place] tablet 00 the Medical morning Branch and 1 tablet at noon and 1 tablet in the evening. ondansetron 2022-0 Yes [id number] 4mg Take 1 [facility] 4 mg 8-29 tablet by ity of disintegrat 00:00: mouth [place] ing tablet 00 every 8 Medica l (eight) Branch hours as needed for Nausea and Vomiting (N/V). acetaminoph 2022-0 Yes [id number] 650mg Take 1 [facility] en (TYLENOL 8-29 tablet by ity of ARTHRITIS 00:00: mouth [place] PAIN) 650 00 every 8 Medical mg CR (eight) Branch tablet hours as needed for Pain. ketorolac 2022-0 Yes [id number] 10mg Take 1 [facility] nivers 10 mg 8-29 tablet by ity of tablet 00:00: mouth [place] 00 every 6 Medical (six) Branch hours as needed for Pain (scale 4-6) or Pain (scale 7-10). metaxalone 2022-0 Yes [id number] 800mg Take 1 [facility] (SKELAXIN) 8-29 tablet by ity of 800 mg 00:00: mouth in [place] tablet 00 the Medical morning Branch and 1 tablet at noon and 1 tablet in the evening. ondansetron 2022-0 Yes [id number] 4mg Take 1 [facility] 4 mg 8-29 tablet by ity of disintegrat 00:00: mouth [place] ing tablet 00 every 8 Medica l (eight) Branch hours as needed for Nausea and Vomiting (N/V). acetaminoph 2-0 Yes [id number] 650mg Take 1 [facility] en (TYLENOL 8-29 tablet by ity of ARTHRITIS 00:00: mouth [place] PAIN) 650 00 every 8 Medical mg CR (eight) Branch tablet hours as needed for Pain. ketorolac 2021-0 Yes [id number] 10mg Take 1 U nivers 10 mg 8-29 tablet by ity of tablet 00:00: mouth [place] 00 every 6 Medical (six) Branch hours as needed for Pain (scale 4-6) or Pain (scale 7-10). metaxalone 2021-0 Yes [id number] 800mg Take 1 [facility] (SKELAXIN) 8-29 tablet by ity of 800 mg 00:00: mouth in [place] tablet 00 the Medical morning Branch and 1 tablet at noon and 1 tablet in the evening. ondansetron 2021-0 Yes [id number] 4mg Take 1 [facility] 4 mg 8-29 tablet by ity of disintegrat 00:00: mouth [place] ing tablet 00 every 8 Medica l (eight) Branch hours as needed for Nausea and Vomiting (N/V). acetaminoph 2021-0 Yes [id number] 650mg Take 1 [facility] en (TYLENOL 8-29 tablet by ity of ARTHRITIS 00:00: mouth [place] PAIN) 650 00 every 8 Medical mg CR (eight) Branch tablet hours as needed for Pain. ketorolac 2021-0 Yes [id number] 10mg Take 1 U nivers 10 mg 8-29 tablet by ity of tablet 00:00: mouth [place] 00 every 6 Medical (six) Branch hours as needed for Pain (scale 4-6) or Pain (scale 7-10). metaxalone 2-0 Yes [id number] 800mg Take 1 [facility] (SKELAXIN) 8-29 tablet by ity of 800 mg 00:00: mouth in [place] tablet 00 the Medical morning Branch and 1 tablet at noon and 1 tablet in the evening. ondansetron 2-0 Yes [id number] 4mg Take 1 [facility] 4 mg 8-29 tablet by ity of disintegrat 00:00: mouth [place] ing tablet 00 every 8 Medica l (eight) Branch hours as needed for Nausea and Vomiting (N/V). acetaminoph 202-0 Yes [id number] 650mg Take 1 [facility] en (TYLENOL 8-29 tablet by ity of ARTHRITIS 00:00: mouth [place] PAIN) 650 00 every 8 Medical mg CR (eight) Branch tablet hours as needed for Pain. ketorolac 2022-0 Yes [id number] 10mg Take 1 U nivers 10 mg 8-29 tablet by ity of tablet 00:00: mouth [place] 00 every 6 Medical (six) Branch hours as needed for Pain (scale 4-6) or Pain (scale 7-10). metaxalone 2022-0 Yes [id number] 800mg Take 1 [facility] (SKELAXIN) 8-29 tablet by ity of 800 mg 00:00: mouth in [place] tablet 00 the Medical morning Branch and 1 tablet at noon and 1 tablet in the evening. ondansetron 2-0 Yes [id number] 4mg Take 1 [facility] 4 mg 8-29 tablet by ity of disintegrat 00:00: mouth [place] ing tablet 00 every 8 Medica l (eight) Branch hours as needed for Nausea and Vomiting (N/V). acetaminoph 2021-0 Yes [id number] 650mg Take 1 [facility] en (TYLENOL 8-29 tablet by ity of ARTHRITIS 00:00: mouth [place] PAIN) 650 00 every 8 Medical mg CR (eight) Branch tablet hours as needed for Pain. ketorolac 2-0 Yes [id number] 10mg Take 1 U nivers 10 mg 8-29 tablet by ity of tablet 00:00: mouth [place] 00 every 6 Medical (six) Branch hours as needed for Pain (scale 4-6) or Pain (scale 7-10). metaxalone 2-0 Yes [id number] 800mg Take 1 [facility] (SKELAXIN) 8-29 tablet by ity of 800 mg 00:00: mouth in [place] tablet 00 the Medical morning Branch and 1 tablet at noon and 1 tablet in the evening. ondansetron 2022-0 Yes [id number] 4mg Take 1 [facility] 4 mg 8-29 tablet by ity of disintegrat 00:00: mouth [place] ing tablet 00 every 8 Medica l (eight) Branch hours as needed for Nausea and Vomiting (N/V). acetaminoph 2022-0 Yes [id number] 650mg Take 1 [facility] en (TYLENOL 8-29 tablet by ity of ARTHRITIS 00:00: mouth [place] PAIN) 650 00 every 8 Medical mg CR (eight) Branch tablet hours as needed for Pain. ketorolac 2021-0 Yes [id number] 10mg Take 1 U nivers 10 mg 8-29 tablet by ity of tablet 00:00: mouth [place] 00 every 6 Medical (six) Branch hours as needed for Pain (scale 4-6) or Pain (scale 7-10). metaxalone 2021-0 Yes [id number] 800mg Take 1 [facility] (SKELAXIN) 8-29 tablet by ity of 800 mg 00:00: mouth in [place] tablet 00 the Medical morning Branch and 1 tablet at noon and 1 tablet in the evening. acetaminoph 2021-0 Yes [id number] 650mg Take 1 [facility] en (TYLENOL 8-29 tablet by ity of ARTHRITIS 00:00: mouth [place] PAIN) 650 00 every 8 Medical mg CR (eight) Branch tablet hours as needed for Pain. acetaminoph 2021-0 Yes [id number] 650mg Take 1 [facility] en (TYLENOL 8-29 tablet by ity of ARTHRITIS 00:00: mouth [place] PAIN) 650 00 every 8 Medical mg CR (eight) Branch tablet hours as needed for Pain. acetaminoph 2021-0 Yes [id number] 650mg Take 1 [facility] en (TYLENOL 8-29 tablet by ity of ARTHRITIS 00:00: mouth [place] PAIN) 650 00 every 8 Medical mg CR (eight) Branch tablet hours as needed for Pain. acetaminoph 2021-0 Yes [id number] 650mg Take 1 [facility] en (TYLENOL 8-29 tablet by ity of ARTHRITIS 00:00: mouth [place] PAIN) 650 00 every 8 Medical mg CR (eight) Branch tablet hours as needed for Pain. acetaminoph 2021-0 Yes [id number] 650mg Take 1 [facility] en (TYLENOL 8-29 tablet by ity of ARTHRITIS 00:00: mouth [place] PAIN) 650 00 every 8 Medical mg CR (eight) Branch tablet hours as needed for Pain. acetaminoph 2021-0 Yes [id number] 650mg Take 1 [facility] en (TYLENOL 8-29 tablet by ity of ARTHRITIS 00:00: mouth [place] PAIN) 650 00 every 8 Medical mg CR (eight) Branch tablet hours as needed for Pain. acetaminoph 2021-0 Yes [id number] 650mg Take 1 [facility] en (TYLENOL 8-29 tablet by ity of ARTHRITIS 00:00: mouth [place] PAIN) 650 00 every 8 Medical mg CR (eight) Branch tablet hours as needed for Pain. acetaminoph 2021-0 Yes [id number] 650mg Take 1 [facility] en (TYLENOL 8-29 tablet by ity of ARTHRITIS 00:00: mouth [place] PAIN) 650 00 every 8 Medical mg CR (eight) Branch tablet hours as needed for Pain. acetaminoph 2021-0 Yes [id number] 650mg Take 1 [facility] en (TYLENOL 8-29 tablet by ity of ARTHRITIS 00:00: mouth [place] PAIN) 650 00 every 8 Medical mg CR (eight) Branch tablet hours as needed for Pain. acetaminoph 2021-0 Yes [id number] 650mg Take 1 [facility] en (TYLENOL 8-29 tablet by ity of ARTHRITIS 00:00: mouth [place] PAIN) 650 00 every 8 Medical mg CR (eight) Branch tablet hours as needed for Pain. acetaminoph 0 Yes [id number] 650mg Take 1 [facility] en (TYLENOL 8-29 tablet by ity of ARTHRITIS 00:00: mouth [place] PAIN) 650 00 every 8 Medical mg CR (eight) Branch tablet hours as needed for Pain. acetaminoph 0 Yes [id number] 650mg Take 1 [facility] en (TYLENOL 8-29 tablet by ity of ARTHRITIS 00:00: mouth [place] PAIN) 650 00 every 8 Medical mg CR (eight) Branch tablet hours as needed for Pain. acetaminoph 2021-0 Yes [id number] 650mg Take 1 [facility] en (TYLENOL 8-29 tablet by ity of ARTHRITIS 00:00: mouth [place] PAIN) 650 00 every 8 Medical mg CR (eight) Branch tablet hours as needed for Pain. acetaminoph 0 Yes [id number] 650mg Take 1 [facility] en (TYLENOL 8-29 tablet by ity of ARTHRITIS 00:00: mouth [place] PAIN) 650 00 every 8 Medical mg CR (eight) Branch tablet hours as needed for Pain. acetaminoph 2021-0 Yes [id number] 650mg Take 1 [facility] en (TYLENOL 8-29 tablet by ity of ARTHRITIS 00:00: mouth [place] PAIN) 650 00 every 8 Medical mg CR (eight) Branch tablet hours as needed for Pain. acetaminoph 2021-0 Yes [id number] 650mg Take 1 [facility] en (TYLENOL 8-29 tablet by ity of ARTHRITIS 00:00: mouth [place] PAIN) 650 00 every 8 Medical mg CR (eight) Branch tablet hours as needed for Pain. acetaminoph Yes [id number] 650mg Take 1 [facility] en (TYLENOL 8-29 tablet by ity of ARTHRITIS 00:00: mouth [place] PAIN) 650 00 every 8 Medical mg CR (eight) Branch tablet hours as needed for Pain. acetaminoph 2- No [id number] 650mg Take 1 [facility] en (TYLENOL 8-29 11-26 tablet by it y of ARTHRITIS 00:00: 00:00 mouth [place] PAIN) 650 00 :00 every 8 Medical mg CR (eight) Branch tablet hours as needed for Pain. ondansetron 2021-0 2- No [id number] 4mg Take 1 [facility] 4 mg 8-29 10-18 tablet by ity of disintegrat 00:00: 00:00 [place] tablet 00 :00 every 8 Medica l (eight) Branch hours as needed for Nausea and Vomiting (N/V). ketorolac 2021-2021- No [id number] 10mg Take 1 [facility] 10 mg 8-29 10-18 tablet by ity of tablet 00:00: 00:00 mouth [place] 00 :00 every 6 Medical (six) Branch hours as needed for Pain (scale 4-6) or Pain (scale 7-10). metaxalone 2021-0 2- No [id number] 800mg Take 1 [facility] (SKELAXIN) 8-29 10-18 tablet by ity of 800 mg 00:00: 00:00 mouth in [place] tablet 00 :00 the Medical morning Branch and 1 tablet at noon and 1 tablet in the evening. ondansetron 2021-0 2- No [id number] 4mg Take 1 [facility] 4 mg 8-29 10-18 tablet by ity of disintegrat 00:00: 00:00 [place] 00 :00 every 8 Medica l (eight) Branch hours as needed for Nausea and Vomiting (N/V). ketorolac 2-0 2022- No [id number] 10mg Take 1 [facility] 10 mg 8-29 10-18 tablet by ity of tablet 00:00: 00:00 mouth [place] 00 :00 every 6 Medical (six) Branch hours as needed for Pain (scale 4-6) or Pain (scale 7-10). metaxalone 2022-0 2022- No [id number] 800mg Take 1 [facility] (SKELAXIN) 8-29 10-18 tablet by ity of 800 mg 00:00: 00:00 mouth in [place] tablet 00 :00 the Medical morning Branch and 1 tablet at noon and 1 tablet in the evening. ondansetron 2022-0 2022- No [id number] 4mg Take 1 [facility] 4 mg 8-29 10-18 tablet by ity of disintegrat 00:00: 00:00 [place] 00 :00 every 8 Medica l (eight) Branch hours as needed for Nausea and Vomiting (N/V). ketorolac 2022-0 2022- No [id number] 10mg Take 1 [facility] 10 mg 8-29 10-18 tablet by ity of tablet 00:00: 00:00 mouth [place] 00 :00 every 6 Medical (six) Branch hours as needed for Pain (scale 4-6) or Pain (scale 7-10). metaxalone 2022-0 2022- No [id number] 800mg Take 1 [facility] (SKELAXIN) 8-29 10-18 tablet by ity of 800 mg 00:00: 00:00 mouth in [place] tablet 00 :00 the Medical morning Branch and 1 tablet at noon and 1 tablet in the evening. ondansetron 2022-0 2022- No [id number] 4mg Take 1 [facility] 4 mg 8-29 10-18 tablet by ity of disintegrat 00:00: 00:00 [place] 00 :00 every 8 Medica l (eight) Branch hours as needed for Nausea and Vomiting (N/V). ketorolac 2022-0 2022- No [id number] 10mg Take 1 [facility] 10 mg 8-29 10-18 tablet by ity of tablet 00:00: 00:00 mouth [place] 00 :00 every 6 Medical (six) Branch hours as needed for Pain (scale 4-6) or Pain (scale 7-10). metaxalone 2022-0 2022- No [id number] 800mg Take 1 [facility] (SKELAXIN) 8-29 10-18 [...] 2021- No Take by Un sushant ietary 812-12 mouth. ity of supp. no.8 15:08: 00:00 [...] Medical Branch citalopram 0 Yes Take by [facility] [place] [facility] ers hydrobromid 12-12 mouth. ity of e [...] Yes [facility] INHALE 8 ity of 13:03: [place] [address] Medical Branch diphenhydrA Yes 25mg Take 25 mg [facility] MINE 25 mg 802 by mouth ity o f capsule 13:03: every 6 [place] [address] (six) Medical hours as Branch needed for Allergies. carbamazepi 0 Yes Take by Uni vers ne 8-02 mouth. ity of (TEGRETOL 13:03: [place] ORAL) Medical Branch citalopram Yes Take by Univ ers hydrobromid 8-02 mouth. ity of e 13:03: [place] (CITALOPRAM 04 Medical ORAL) Branch ALBUTEROL Yes [facility] INHALE 8 ity of 13:03: [place] [address] Medical Branch diphenhydrA Yes 25mg Take 25 mg [facility] MINE 25 mg 802 by mouth ity o f capsule 13:03: every 6 [place] [address] (six) Medical hours as Branch needed for Allergies. carbamazepi 0 Yes Take by Uni vers ne 8-02 mouth. ity of (TEGRETOL 13:03: [place] ORAL) Medical Branch citalopram Yes Take by Univ ers hydrobromid 8-02 mouth. ity of e 13:03: [place] (CITALOPRAM 04 Medical ORAL) Branch ALBUTEROL Yes [facility] INHALE 8 ity of 13:03: [place] [address] Medical Branch diphenhydrA Yes 25mg Take 25 mg [facility] MINE 25 mg 802 by mouth ity o f capsule 13:03: every 6 [place] [address] (six) Medical hours as Branch needed for [...] ity o f capsule 13:03: every 6 [place] [address] (six) Medical hours as Branch needed for Allergies. carbamazepi Yes Take by [facility] vers ne 8-02 mouth. ity of (TEGRETOL 13:03: [place] ORAL) Medical Branch citalopram Yes Take by Univ ers hydrobromid 8-02 mouth. ity of e 13:03: [place] (CITALOPRAM 04 Medical ORAL) Branch ALBUTEROL Yes [facility] INHALE 8 ity of 13:03: [place] [address] Medical Branch diphenhydrA Yes 25mg Take 25 mg [facility] MINE 25 mg 12-12 by mouth ity o f capsule 13:03: every 6 [place] [address] (six) Medical hours as Branch needed for Allergies. carbamazepi Yes Take by Uni vers ne 8-02 mouth. ity of (TEGRETOL 13:03: [place] ORAL) Medical Branch citalopram Yes Take by Univ ers hydrobromid 8-02 mouth. ity of e 13:03: [place] (CITALOPRAM 04 Medical ORAL) Branch ALBUTEROL Yes [facility] INHALE 12-12 ity of 13:03: [place] [address] Medical Branch diphenhydrA Yes 25mg Take 25 mg [facility] MINE 25 mg 12-12 by mouth ity o f capsule 13:03: every 6 [place] [address] (six) Medical hours as Branch needed for Allergies. carbamazepi Yes Take by Uni vers ne 8-02 mouth. ity of (TEGRETOL 13:03: [place] ORAL) Medical Branch citalopram Yes Take by Univ ers hydrobromid 8-02 mouth. ity of e 13:03: [place] (CITALOPRAM 04 Medical ORAL) Branch ALBUTEROL Yes [facility] INHALE 8 ity of 13:03: [place] [address] Medical Branch diphenhydrA Yes 25mg Take 25 mg [facility] MINE 25 mg 8-02 by mouth ity o f capsule 13:03: every 6 [place] [address] (six) Medical hours as Branch needed for Allergies. carbamazepi Yes Take by Uni vers ne 8-02 mouth. ity of (TEGRETOL 13:03: [place] ORAL) Medical Branch citalopram Yes Take by [facility] [place] [facility] ers hydrobromid 8-02 mouth. ity of e 13:03: [place] (CITALOPRAM 04 Medical ORAL) Branch ALBUTEROL Yes [facility] INHALE 8-02 ity of 13:03: [place] [address] Medical Branch diphenhydrA Yes 25mg Take 25 mg [facility] MINE 25 mg 802 by mouth ity o f capsule 13:03: every 6 [place] 04 (six) Medical hours as Branch needed for Allergies. carbamazepi Yes Take by Uni vers ne 8-02 mouth. ity of (TEGRETOL 13:03: [place] ORAL) Medical Branch citalopram Yes Take by [facility] [place] [facility] ers hydrobromid 8-02 mouth. ity of e 13:03: [place] (CITALOPRAM 04 Medical ORAL) Branch ALBUTEROL Yes [facility] INHALE 8-02 ity of 13:03: [address] Branch diphenhydrA Yes 25mg Take 25 mg [facility] MINE 25 mg 802 by mouth ity o f capsule 13:03: every 6 [place] [address] (six) Medical hours as Branch needed for Allergies. carbamazepi Yes Take by Uni vers ne 8-02 mouth. ity of (TEGRETOL 13:03: [place] ORAL) Medical Branch citalopram Yes Take by [facility] [place] [facility] ers hydrobromid 8-02 mouth. ity of e 13:03: [place] (CITALOPRAM 04 Medical ORAL) Branch ALBUTEROL Yes [facility] INHALE 8-02 ity of 13:03: [place] Medical Branch ALBUTEROL Yes [facility] INHALE 8-02 ity of 13:03: [place] [facility] Branch ALBUTEROL Yes [facility] INHALE 8-02 ity of 13:03: [place] Medical Branch ALBUTEROL Yes [facility] INHALE 8-02 ity of 13:03: [place] [facility] Branch ALBUTEROL Yes [facility] INHALE 8-02 ity of 13:03: [place] [facility] Branch ALBUTEROL Yes Univers INHALE 8-02 ity of 13:03: [address] ALBUTEROL Yes [facility] INHALE 8-02 ity of 13:03: [address] ALBUTEROL Yes [facility] INHALE 8-02 ity of 13:03: [address] ALBUTEROL Yes [facility] INHALE 8-02 ity of 13:03: [address] ALBUTEROL Yes [facility] INHALE 8-02 ity of 13:03: [address] ALBUTEROL Yes [facility] INHALE 8-02 ity of 13:03: [address] ALBUTEROL Yes [facility] INHALE 8-02 ity of 13:03: [address] ALBUTEROL Yes [facility] INHALE 8-02 ity of 13:03: [address] ALBUTEROL Yes [facility] INHALE 8-02 ity of 13:03: [address] ALBUTEROL Yes Univers INHALE 8-02 ity of 13:03: [address] traZODone Yes [id number] 50mg Take 1 U nivers 50 mg 8-02 tablet by ity of tablet 00:00: mouth at [place] 00 bedtime. Medical Branch SERTraline Yes [id number] 50mg Take 1 Univers (ZOLOFT) 50 8-02 tablet by ity of mg tablet 00:00: mouth in [place] 00 the Medical morning. Branch traZODone Yes [id number] 50mg Take 1 U nivers 50 mg 8-02 tablet by ity of tablet 00:00: mouth at [place] 00 bedtime. Medical Branch SERTraline Yes [id number] 50mg Take 1 Univers (ZOLOFT) 50 8-02 tablet by ity of mg tablet 00:00: mouth in [place] 00 the Medical morning. Branch traZODone Yes [id number] 50mg Take 1 U nivers 50 mg 8-02 tablet by ity of tablet 00:00: mouth at [place] 00 bedtime. [facility] Branch SERTraline Yes [id number] 50mg Take 1 Univers (ZOLOFT) 50 8-02 tablet by ity of mg tablet 00:00: mouth in [place] 00 the Medical morning. Branch traZODone 2021-0 Yes [id number] 50mg Take 1 U nivers 50 mg 8-02 tablet by ity of tablet 00:00: mouth at [place] 00 bedtime. Medical Branch SERTraline 2021-0 Yes 50mg Take 1 Univers (ZOLOFT) 50 8-02 tablet by ity of mg tablet 00:00: mouth in [place] 00 the Medical morning. Branch traZODone 2021-0 Yes [id number] 50mg Take 1 U nivers 50 mg 8-02 tablet by ity of tablet 00:00: mouth at [place] 00 bedtime. Medical Branch SERTraline 2021-0 Yes 50mg Take 1 Univers (ZOLOFT) 50 8-02 tablet by ity of mg tablet 00:00: mouth in [place] 00 the Medical morning. Branch traZODone 2021-0 Yes [id number] 50mg Take 1 U nivers 50 mg 8-02 tablet by ity of tablet 00:00: mouth at [place] 00 bedtime. Medical Branch SERTraline 2021-0 Yes 50mg Take 1 Univers (ZOLOFT) 50 8-02 tablet by ity of mg tablet 00:00: mouth in [place] 00 the Medical morning. Branch traZODone 2021-0 Yes [id number] 50mg Take 1 U nivers 50 mg 8-02 tablet by ity of tablet 00:00: mouth at [place] 00 bedtime. Medical Branch SERTraline 2021-0 Yes 50mg Take 1 Univers (ZOLOFT) 50 8-02 tablet by ity of mg tablet 00:00: mouth in [place] 00 the Medical morning. Branch traZODone 2021-0 Yes [id number] 50mg Take 1 U nivers 50 mg 8-02 tablet by ity of tablet 00:00: mouth at [place] 00 bedtime. Medical Branch SERTraline 2021-0 Yes [id number] 50mg Take 1 Univers (ZOLOFT) 50 8-02 tablet by ity of mg tablet 00:00: mouth in [place] 00 the Medical morning. Branch traZODone 2021-0 Yes [id number] 50mg Take 1 U nivers 50 mg 8-02 tablet by ity of tablet 00:00: mouth at [place] 00 bedtime. Medical Branch SERTraline Yes [id number] 50mg Take 1 Univers (ZOLOFT) 50 8-02 tablet by ity of mg tablet 00:00: mouth in [place] 00 the Medical morning. Branch traZODone Yes [id number] 50mg Take 1 U nivers 50 mg 8-02 tablet by ity of tablet 00:00: mouth at [place] 00 bedtime. Medical Branch SERTraline Yes [id number] 50mg Take 1 Univers (ZOLOFT) 50 8-02 tablet by ity of mg tablet 00:00: mouth in [place] 00 the Medical morning. Branch traZODone Yes [id number] 50mg Take 1 U nivers 50 mg 8-02 tablet by ity of tablet 00:00: mouth at [place] 00 bedtime. [facility] Branch SERTraline Yes [id number] 50mg Take 1 Univers (ZOLOFT) 50 8-02 tablet by ity of mg tablet 00:00: mouth in [place] 00 the Medical morning. Branch traZODone 2021- No [id number] 50mg Take 1 Univers 50 mg 8-02 10-18 tablet by ity of tablet 00:00: 00:00 mouth at [place] 00 :00 bedtime. [facility] Branch SERTraline 2021- No [id number] 50mg Take 1 Univers (ZOLOFT) 50 8-02 10-18 tablet by it y of mg tablet 00:00: 00:00 mouth in [place] as 00 :00 the Medical morning. Branch traZODone 2021- No [id number] 50mg Take 1 Univers 50 mg 8-02 10-18 tablet by ity of tablet 00:00: 00:00 mouth at [place] 00 :00 bedtime. [facility] Branch SERTraline 2021- No [id number] 50mg Take 1 Univers (ZOLOFT) 50 8-02 10-18 tablet by it y of mg tablet 00:00: 00:00 mouth in [place] as 00 :00 the Medical morning. Branch traZODone 2021- No [id number] 50mg Take 1 Univers 50 mg 8-02 10-18 tablet by ity of tablet 00:00: 00:00 mouth at [place] 00 :00 bedtime. Medical Branch SERTraline 2021- No [id number] 50mg Take 1 Univers (ZOLOFT) 50 8- 10-18 tablet by it y of mg tablet 00:00: 00:00 mouth in [facility] as 00 :00 the Medical morning. Branch traZODone 2021-2021- No [id number] 50mg Take 1 Univers 50 mg 8- 10-18 tablet by ity of tablet 00:00: 00:00 mouth at [place] 00 :00 bedtime. Medical Branch SERTraline 2021-2021- No [id number] 50mg Take 1 Univers (ZOLOFT) 50 8- 10-18 tablet by it y of mg tablet 00:00: 00:00 mouth in [facility] as 00 :00 the Medical morning. Branch sulfamethox 2021-2021- No [id number] 1{tbl} Take 1 Univers azole-trime - 08-06 tablet by it y of thoprim 00:00: 04:59 mouth in [place] (BACTRIM 00 :00 the Medical DS) 800-160 morning Branc h mg per and 1 tablet tablet in the evening. Do all this for 3 days. ibuprofen 0 Yes [id number] 600mg Take 1 [facility] 600 mg 7-15 tablet by ity of tablet 00:00: mouth [place] 00 every 6 Medical (six) Branch hours as needed for Pain (scale 4-6). ibuprofen 2021-0 Yes [id number] 600mg Take 1 [facility] 600 mg 7-15 tablet by ity of tablet 00:00: mouth [place] [address] every 6 Medical (six) Branch hours as needed for Pain (scale 4-6). ibuprofen 2021-0 Yes [id number] 600mg Take 1 [facility] 600 mg 7-15 tablet by ity of tablet 00:00: mouth [place] [address] every 6 Medical (six) Branch hours as needed for Pain (scale 4-6). ibuprofen 2021-0 Yes [id number] 600mg Take 1 [facility] 600 mg 7-15 tablet by ity of tablet 00:00: mouth [place] 00 every 6 Medical (six) Branch hours as needed for Pain (scale 4-6). ibuprofen 2021-0 Yes [id number] 600mg Take 1 [facility] 600 mg 7-15 tablet by ity of tablet 00:00: mouth [place] 00 every 6 Medical (six) Branch hours as needed for Pain (scale 4-6). ibuprofen 2022-0 Yes [id number] 600mg Take 1 [facility] 600 mg 7-15 tablet by ity of tablet 00:00: mouth [place] 00 every 6 Medical (six) Branch hours as needed for Pain (scale 4-6). ibuprofen 2022-0 Yes [id number] 600mg Take 1 [facility] 600 mg 7-15 tablet by ity of tablet 00:00: mouth [place] 00 every 6 Medical (six) Branch hours as needed for Pain (scale 4-6). ibuprofen 2022-0 Yes [id number] 600mg Take 1 [facility] 600 mg 7-15 tablet by ity of tablet 00:00: mouth [place] 00 every 6 Medical (six) Branch hours as needed for Pain (scale 4-6). ibuprofen 2022-0 Yes [id number] 600mg Take 1 [facility] 600 mg 7-15 tablet by ity of tablet 00:00: mouth [place] 00 every 6 Medical (six) Branch hours as needed for Pain (scale 4-6). ibuprofen 2022-0 Yes [id number] 600mg Take 1 [facility] 600 mg 7-15 tablet by ity of tablet 00:00: mouth [place] 00 every 6 Medical (six) Branch hours as needed for Pain (scale 4-6). ibuprofen 2-0 Yes [id number] 600mg Take 1 [facility] 600 mg 7-15 tablet by ity of tablet 00:00: mouth [place] 00 every 6 Medical (six) Branch hours as needed for Pain (scale 4-6). ibuprofen 2022-0 2022- No [id number] 600mg Take 1 [facility] 600 mg 7-15 10-18 tablet by ity of tablet 00:00: 00:00 mouth [place] 00 :00 every 6 Medical (six) Branch hours as needed for Pain (scale 4-6). ibuprofen 2022-0 2022- No [id number] 600mg Take 1 [facility] 600 mg 7-15 10-18 tablet by ity of tablet 00:00: 00:00 mouth [place] 00 :00 every 6 Medical (six) Branch hours as needed for Pain (scale 4-6). ibuprofen 2022-0 2022- No [id number] 600mg Take 1 [facility] 600 mg 7-15 10-18 tablet by ity of tablet 00:00: 00:00 mouth [place] 00 :00 every 6 Medical (six) Branch hours as needed for Pain (scale 4-6). ibuprofen 2021- No [id number] 600mg Take 1 Univers 600 mg 7-15 [...] Indication s: acute pain bromphenira 0 Yes [id number] 5mL Take 5 mL Univers mine-pseudo 7-09 by mouth 4 it y of ephedrine-D 00:00: (four) [place] M (BROMFED 00 times Medical DM) 2-30-10 daily as Bran ch mg/5 mL needed for syrup Congestion /Allergies or Cough. naproxen 2021-0 Yes [id number] 500mg Take 1 U nivers 500 mg 7-09 tablet by ity of tablet 00:00: mouth [place] 00 every 8 Medical (eight) Branch hours as needed for Pain (scale 4-6). cyclobenzap 2021-0 Yes [id number] 10mg Take 1 Univers rine 10 mg 7-09 tablet by ity of tablet 00:00: mouth at [place] 00 bedtime as Medical needed for Branch Muscle Spasms. bromphenira 2021-0 Yes [id number] 5mL Take 5 mL Univers mine-pseudo 7-09 by mouth 4 it y of ephedrine-D 00:00: (four) [place] M (BROMFED 00 times Medical DM) 2-30-10 daily as Bran ch mg/5 mL needed for syrup Congestion /Allergies or Cough. naproxen 2021-0 Yes [id number] 500mg Take 1 U nivers 500 mg 7-09 tablet by ity of tablet 00:00: mouth [place] 00 every 8 Medical (eight) Branch hours as needed for Pain (scale 4-6). cyclobenzap 2021-0 Yes [id number] 10mg Take 1 Univers rine 10 mg 7-09 tablet by ity of tablet 00:00: mouth at [place] 00 bedtime as Medical needed for Branch Muscle Spasms. bromphenira 2021-0 Yes [id number] 5mL Take 5 mL Univers mine-pseudo 7-09 by mouth 4 it y of ephedrine-D 00:00: (four) [place] M (BROMFED 00 times Medical DM) 2-30-10 daily as Bran ch mg/5 mL needed for syrup Congestion /Allergies or Cough. naproxen 2021-0 Yes [id number] 500mg Take 1 U nivers 500 mg 7-09 tablet by ity of tablet 00:00: mouth [place] 00 every 8 Medical (eight) Branch hours as needed for Pain (scale 4-6). cyclobenzap 2021-0 Yes [id number] 10mg Take 1 Univers rine 10 mg 7-09 tablet by ity of tablet 00:00: mouth at [place] 00 bedtime as Medical needed for Branch Muscle Spasms. bromphenira 2021-0 Yes [id number] 5mL Take 5 mL Univers mine-pseudo 7-09 by mouth 4 it y of ephedrine-D 00:00: (four) [place] M (BROMFED 00 times Medical DM) 2-30-10 daily as Bran ch mg/5 mL needed for syrup Congestion /Allergies or Cough. naproxen 2021-0 Yes [id number] 500mg Take 1 U nivers 500 mg 7-09 tablet by ity of tablet 00:00: mouth [place] 00 every 8 Medical (eight) Branch hours as needed for Pain (scale 4-6). cyclobenzap 2021-0 Yes [id number] 10mg Take 1 Univers rine 10 mg 7-09 tablet by ity of tablet 00:00: mouth at [place] 00 bedtime as Medical needed for Branch Muscle Spasms. bromphenira 2021-0 Yes [id number] 5mL Take 5 mL Univers mine-pseudo 7-09 by mouth 4 it y of ephedrine-D 00:00: (four) [place] M (BROMFED 00 times Medical DM) 2-30-10 daily as Bran ch mg/5 mL needed for syrup Congestion /Allergies or Cough. naproxen 2-0 Yes [id number] 500mg Take 1 U nivers 500 mg 7-09 tablet by ity of tablet 00:00: mouth [place] 00 every 8 Medical (eight) Branch hours as needed for Pain (scale 4-6). cyclobenzap 2022-0 Yes [id number] 10mg Take 1 Univers rine 10 mg 7-09 tablet by ity of tablet 00:00: mouth at [place] 00 bedtime as Medical needed for Branch Muscle Spasms. bromphenira 2021-0 Yes [id number] 5mL Take 5 mL Univers mine-pseudo 7-09 by mouth 4 it y of ephedrine-D 00:00: (four) [place] M (BROMFED 00 times Medical DM) 2-30-10 daily as Bran ch mg/5 mL needed for syrup Congestion /Allergies or Cough. naproxen 2021-0 Yes [id number] 500mg Take 1 U nivers 500 mg 7-09 tablet by ity of tablet 00:00: mouth [place] 00 every 8 Medical (eight) Branch hours as needed for Pain (scale 4-6). cyclobenzap 2021-0 Yes [id number] 10mg Take 1 Univers rine 10 mg 7-09 tablet by ity of tablet 00:00: mouth at [place] 00 bedtime as Medical needed for Branch Muscle Spasms. bromphenira 2021-0 Yes [id number] 5mL Take 5 mL Univers mine-pseudo 7-09 by mouth 4 it y of ephedrine-D 00:00: (four) [place] M (BROMFED 00 times Medical DM) 2-30-10 daily as Bran ch mg/5 mL needed for syrup Congestion /Allergies or Cough. naproxen 2-0 Yes [id number] 500mg Take 1 U nivers 500 mg 7-09 tablet by ity of tablet 00:00: mouth [place] 00 every 8 Medical (eight) Branch hours as needed for Pain (scale 4-6). cyclobenzap 2022-0 Yes [id number] 10mg Take 1 Univers rine 10 mg 7-09 tablet by ity of tablet 00:00: mouth at [place] 00 bedtime as Medical needed for Branch Muscle Spasms. bromphenira 2022-0 Yes [id number] 5mL Take 5 mL Univers mine-pseudo 7-09 by mouth 4 it y of ephedrine-D 00:00: (four) [place] M (BROMFED 00 times Medical DM) 2-30-10 daily as Bran ch mg/5 mL needed for syrup Congestion /Allergies or Cough. naproxen 2-0 Yes [id number] 500mg Take 1 U nivers 500 mg 7-09 tablet by ity of tablet 00:00: mouth [place] 00 every 8 Medical (eight) Branch hours as needed for Pain (scale 4-6). cyclobenzap 2021-0 Yes [id number] 10mg Take 1 Univers rine 10 mg 7-09 tablet by ity of tablet 00:00: mouth at [place] 00 bedtime as Medical needed for Branch Muscle Spasms. bromphenira 2021-0 Yes [id number] 5mL Take 5 mL Univers mine-pseudo 7-09 by mouth 4 it y of ephedrine-D 00:00: (four) [place] M (BROMFED 00 times Medical DM) 2-30-10 daily as Bran ch mg/5 mL needed for syrup Congestion /Allergies or Cough. naproxen 2021-0 Yes [id number] 500mg Take 1 U nivers 500 mg 7-09 tablet by ity of tablet 00:00: mouth [place] 00 every 8 Medical (eight) Branch hours as needed for Pain (scale 4-6). cyclobenzap 2021-0 Yes [id number] 10mg Take 1 Univers rine 10 mg 7-09 tablet by ity of tablet 00:00: mouth at [place] 00 bedtime as Medical needed for Branch Muscle Spasms. bromphenira 2021-0 Yes [id number] 5mL Take 5 mL Univers mine-pseudo 7-09 by mouth 4 it y of ephedrine-D 00:00: (four) [place] M (BROMFED 00 times Medical DM) 2-30-10 daily as Bran ch mg/5 mL needed for syrup Congestion /Allergies or Cough. naproxen 2-0 Yes [id number] 500mg Take 1 U nivers 500 mg 7-09 tablet by ity of tablet 00:00: mouth [place] 00 every 8 Medical (eight) Branch hours as needed for Pain (scale 4-6). cyclobenzap 2-0 Yes [id number] 10mg Take 1 Univers rine 10 mg 7-09 tablet by ity of tablet 00:00: mouth at [place] 00 bedtime as Medical needed for Branch Muscle Spasms. bromphenira 2022-0 Yes [id number] 5mL Take 5 mL Univers mine-pseudo 7-09 by mouth 4 it y of ephedrine-D 00:00: (four) [place] M (BROMFED times Medical DM) 2-30-10 daily as Bran ch mg/5 mL needed for syrup Congestion /Allergies or Cough. naproxen 2021-0 Yes [id number] 500mg Take 1 U nivers 500 mg 7-09 tablet by ity of tablet 00:00: mouth [place] 00 every 8 Medical (eight) Branch hours as needed for Pain (scale 4-6). cyclobenzap 2021-0 Yes [id number] 10mg Take 1 Univers rine 10 mg 7-09 tablet by ity of tablet 00:00: mouth at [place] 00 bedtime as Medical needed for Branch Muscle Spasms. bromphenira 0 Yes [id number] 5mL Take 5 mL Univers mine-pseudo 7-09 by mouth 4 it y of ephedrine-D 00:00: (four) [place] M (BROMFED 00 times Medical DM) 2-30-10 daily as Bran ch mg/5 mL needed for syrup Congestion /Allergies or Cough. bromphenira 2021-0 Yes [id number] 5mL Take 5 mL Univers mine-pseudo 7-09 by mouth 4 it y of ephedrine-D 00:00: (four) [place] M (BROMFED 00 times Medical DM) 2-30-10 daily as Bran ch mg/5 mL needed for syrup Congestion /Allergies or Cough. bromphenira 2021-0 Yes [id number] 5mL Take 5 mL Univers mine-pseudo 7-09 by mouth 4 it y of ephedrine-D 00:00: (four) [place] M (BROMFED 00 times Medical DM) 2-30-10 daily as Bran ch mg/5 mL needed for syrup Congestion /Allergies or Cough. bromphenira 2021-0 Yes [id number] 5mL Take 5 mL Univers mine-pseudo 7-09 by mouth 4 it y of ephedrine-D 00:00: (four) [place] M (BROMFED 00 times Medical DM) 2-30-10 daily as Bran ch mg/5 mL needed for syrup Congestion /Allergies or Cough. bromphenira 2021-0 Yes [id number] 5mL Take 5 mL Univers mine-pseudo 7-09 by mouth 4 it y of ephedrine-D 00:00: (four) [place] M (BROMFED 00 times Medical DM) 2-30-10 daily as Bran ch mg/5 mL needed for syrup Congestion /Allergies or Cough. bromphenira 2021-0 Yes [id number] 5mL Take 5 mL Univers mine-pseudo 7-09 by mouth 4 it y of ephedrine-D 00:00: (four) [place] M (BROMFED 00 times Medical DM) 2-30-10 daily as Bran ch mg/5 mL needed for syrup Congestion /Allergies or Cough. bromphenira 2021-0 Yes [id number] 5mL Take 5 mL Univers mine-pseudo 7-09 by mouth 4 it y of ephedrine-D 00:00: (four) [place] M (BROMFED 00 times Medical DM) 2-30-10 daily as Bran ch mg/5 mL needed for syrup Congestion /Allergies or Cough. bromphenira 2021-0 Yes [id number] 5mL Take 5 mL Univers mine-pseudo 7-09 by mouth 4 it y of ephedrine-D 00:00: (four) [place] M (BROMFED 00 times Medical DM) 2-30-10 daily as Bran ch mg/5 mL needed for syrup Congestion /Allergies or Cough. bromphenira 2021-0 Yes [id number] 5mL Take 5 mL Univers mine-pseudo 7-09 by mouth 4 it y of ephedrine-D 00:00: (four) [place] M (BROMFED 00 times Medical DM) 2-30-10 daily as Bran ch mg/5 mL needed for syrup Congestion /Allergies or Cough. bromphenira 2021-0 Yes [id number] 5mL Take 5 mL [facility] mine-pseudo 7-09 by mouth 4 it y of ephedrine-D 00:00: (four) [place] (BROMFED 00 times Medical DM) 2-30-10 daily as Bran ch mg/5 mL needed for syrup Congestion /Allergies or Cough. bromphenira 2-0 Yes [id number] 5mL Take 5 mL Univers mine-pseudo 7-09 by mouth 4 it y of ephedrine-D 00:00: (four) [place] M (BROMFED 00 times Medical DM) 2-30-10 daily as Bran ch mg/5 mL needed for syrup Congestion /Allergies or Cough. bromphenira 2021-0 Yes [id number] 5mL Take 5 mL Univers mine-pseudo 7-09 by mouth 4 it y of ephedrine-D 00:00: (four) [place] (BROMFED 00 times Medical DM) 2-30-10 daily as Bran ch mg/5 mL needed for syrup Congestion /Allergies or Cough. bromphenira 2021-0 Yes [id number] 5mL Take 5 mL [facility] mine-pseudo 7-09 by mouth 4 it y of ephedrine-D 00:00: (four) [place] M (BROMFED 00 times Medical DM) 2-30-10 daily as Bran ch mg/5 mL needed for syrup Congestion /Allergies or Cough. bromphenira 2021-0 Yes [id number] 5mL Take 5 mL [facility] mine-pseudo 7-09 by mouth 4 it y of ephedrine-D 00:00: (four) [place] (BROMFED 00 times Medical DM) 2-30-10 daily as Bran ch mg/5 mL needed for syrup Congestion /Allergies or Cough. bromphenira 2021- No [id number] 5mL Take 5 mL [facility] mine-pseudo 7- 11-12 by mouth 4 i ty of ephedrine-D 00:00: 00:00 (four) [place] M (BROMFED 00 :00 times Medical DM) 2-30-10 daily as Bran ch mg/5 mL needed for syrup Congestion /Allergies or Cough. naproxen 2021-2021- No [id number] 500mg Take 1 [facility] 500 mg 7- 10-18 tablet by ity of tablet 00:00: 00:00 mouth [place] 00 :00 every 8 Medical (eight) Branch hours as needed for Pain (scale 4-6). cyclobenzap 2021-2021- No [id number] 10mg Take 1 Univers rine 10 mg 7- 10-18 tablet by ity of tablet 00:00: 00:00 mouth at [place] 00 :00 bedtime as Medical needed for Branch Muscle Spasms. naproxen 2021-0 2021- No [id number] 500mg Take 1 [facility] 500 mg 7- 10-18 tablet by ity of tablet 00:00: 00:00 mouth [place] 00 :00 every 8 Medical (eight) Branch hours as needed for Pain (scale 4-6). cyclobenzap No [id number] 10mg Take 1 Univers rine 10 mg 7- 10-18 tablet by ity of tablet 00:00: 00:00 mouth at [place] 00 :00 bedtime as Medical needed for Branch Muscle Spasms. naproxen No [id number] 500mg Take 1 [facility] 500 mg 7- 10-18 tablet by ity of tablet 00:00: 00:00 mouth [place] 00 :00 every 8 Medical (eight) Branch hours as needed for Pain (scale 4-6). cyclobenzap No [id number] 10mg Take 1 [facility] rine 10 mg 7- 10-18 tablet by ity of tablet 00:00: 00:00 mouth at [place] 00 :00 bedtime as Medical needed for Branch Muscle Spasms. naproxen No [id number] 500mg Take 1 [facility] 500 mg 7- 10-18 tablet by ity of tablet 00:00: 00:00 mouth [place] 00 :00 every 8 Medical (eight) Branch hours as needed for Pain (scale 4-6). cyclobenzap No [id number] 10mg Take 1 Univers rine 10 mg 7- 10-18 tablet by ity of tablet 00:00: 00:00 mouth at [place] 00 :00 bedtime as Medical needed for Branch Muscle Spasms. ibuprofen Yes [id number] 605mg Take 30.25 Univers 100 mg/5 mL 6-15 mL by ity of oral 00:00: mouth [place] suspension 00 every 6 Medica l (six) Branch hours as needed for Pain (scale 4-6) or Temp > 38.5 C. ibuprofen 0 Yes [id number] 605mg Take 30.25 Univers 100 mg/5 mL 6-15 mL by ity of oral 00:00: mouth [place] suspension 00 every 6 Medica l (six) Branch hours as needed for Pain (scale 4-6) or Temp > 38.5 C. ibuprofen 0 Yes [id number] 605mg Take 30.25 [facility] 100 mg/5 mL 6-15 mL by ity of oral 00:00: mouth [place] suspension 00 every 6 Medica l (six) Branch hours as needed for Pain (scale 4-6) or Temp > 38.5 C. ibuprofen 2022-0 Yes [id number] 605mg Take 30.25 [facility] 100 mg/5 mL 6-15 mL by ity of oral 00:00: mouth [place] suspension 00 every 6 Medica l (six) Branch hours as needed for Pain (scale 4-6) or Temp > 38.5 C. ibuprofen 2022-0 Yes [id number] 605mg Take 30.25 [facility] 100 mg/5 mL 6-15 mL by ity of oral 00:00: mouth [place] suspension 00 every 6 Medica l (six) Branch hours as needed for Pain (scale 4-6) or Temp > 38.5 C. ibuprofen 2022-0 Yes [id number] 605mg Take 30.25 [facility] 100 mg/5 mL 6-15 mL by ity of oral 00:00: mouth [place] suspension 00 every 6 Medica l (six) Branch hours as needed for Pain (scale 4-6) or Temp > 38.5 C. ibuprofen 2022-0 Yes [id number] 605mg Take 30.25 [facility] 100 mg/5 mL 6-15 mL by ity of oral 00:00: mouth [place] suspension 00 every 6 Medica l (six) Branch hours as needed for Pain (scale 4-6) or Temp > 38.5 C. ibuprofen 2022-0 Yes [id number] 605mg Take 30.25 [facility] 100 mg/5 mL 6-15 mL by ity of oral 00:00: mouth [place] suspension 00 every 6 Medica l (six) Branch hours as needed for Pain (scale 4-6) or Temp > 38.5 C. ibuprofen 2022-0 Yes [id number] 605mg Take 30.25 [facility] 100 mg/5 mL 6-15 mL by ity of oral 00:00: mouth [place] suspension 00 every 6 Medica l (six) Branch hours as needed for Pain (scale 4-6) or Temp > 38.5 C. ibuprofen 2022-0 Yes [id number] 605mg Take 30.25 [facility] 100 mg/5 mL 6-15 mL by ity of oral 00:00: mouth [place] suspension 00 every 6 Medica l (six) Branch hours as needed for Pain (scale 4-6) or Temp > 38.5 C. ibuprofen Yes [id number] 605mg Take 30.25 [facility] 100 mg/5 mL 6-15 mL by ity of oral 00:00: mouth [place] suspension 00 every 6 Medica l (six) Branch hours as needed for Pain (scale 4-6) or Temp > 38.5 C. ibuprofen 2021- No [id number] 605mg Take 30.25 [facility] 100 mg/5 mL 6-15 10-18 mL by ity of oral 00:00: 00:00 mouth [place] suspension 00 :00 every 6 Medica l (six) Branch hours as needed for Pain (scale 4-6) or Temp > 38.5 C. ibuprofen 2021- No [id number] 605mg Take 30.25 [facility] 100 mg/5 mL 6-15 10-18 mL by ity of oral 00:00: 00:00 mouth [place] suspension 00 :00 every 6 Medica l (six) Branch hours as needed for Pain (scale 4-6) or Temp > 38.5 C. ibuprofen 2021- No [id number] 605mg Take 30.25 [facility] 100 mg/5 mL 6-15 10-18 mL by ity of oral 00:00: 00:00 mouth [place] suspension 00 :00 every 6 Medica l (six) Branch hours as needed for Pain (scale 4-6) or Temp > 38.5 C. ibuprofen 2021- No [id number] 605mg Take 30.25 [facility] 100 mg/5 mL 6-15 10-18 mL by ity of oral 00:00: 00:00 mouth [place] suspension 00 :00 every 6 Medica l (six) Branch hours as needed for Pain (scale 4-6) or Temp > 38.5 C. acetaminoph 2021- No [id number] 608mg Take 19 mL [facility] en 160 mg/5 6-15 08-02 by mouth ity of mL liquid 00:00: 00:00 [place] 6 [place] 00 [place] (six) Medical hours as Branch needed for Fever. DULoxetine Yes [facility] 60 mg 5-27 ity of capsule 00:00: 00 Medical Branch DULoxetine 2022-0 Yes [facility] [...] capsule 00:00: [place] 00 [facility] DULoxetine 2021-0 Yes [facility] 60 mg 5-27 ity of capsule 00:00: [place] [address] Medical Branch DULoxetine 2021-0 Yes [facility] 60 mg 5-27 ity of capsule 00:00: [place] [address] Medical Branch DULoxetine 2021-0 Yes [facility] 60 mg 5-27 ity of capsule 00:00: [place] [address] Medical Branch DULoxetine 2021-0 Yes [facility] 60 mg 5-27 ity of capsule 00:00: [place] [address] Medical Branch DULoxetine 2021-0 Yes [facility] 60 mg 5-27 ity of capsule 00:00: [place] [address] Medical Branch DULoxetine 2021-0 Yes [facility] 60 mg 5-27 ity of capsule 00:00: [place] 00 Medical Branch DULoxetine 2021-0 2022- No Un[facility] 60 mg 5-27 10-18 ity of capsule 00:00: 00:00 [place] 00 :00 Medical Branch DULoxetine 2-0 2- [...] 00:00 [place] 00 :00 Medical Branch traZODone 2021-0 2- No [facility] 50 mg 5-27 08-02 ity of tablet 00:00: 00:00 [place] 00 :00 Medical Branch mometasone 2021-0 Yes [id number] 1{spray Use 1 [facility] 50 5-19 } [place] in ity of mcg/actuati 00:00: each [place] on nasal 00 nostril 2 Medica l spray (two) Branch times daily. mometasone 2021-0 Yes [id number] 1{spray Use 1 [facility] 50 5-19 } [place] in ity of mcg/actuati 00:00: each [place] on nasal 00 nostril 2 Medica l spray (two) Branch times daily. mometasone 2021-0 Yes [id number] 1{spray Use 1 [facility] 50 5-19 } [place] in ity of mcg/actuati 00:00: each [place] on nasal 00 nostril 2 Medica l spray (two) Branch times daily. mometasone 2021- Yes [id number] 1{spray Use 1 [facility] 50 5-19 } [place] in ity of mcg/actuati 00:00: each [place] on nasal 00 nostril 2 Medica l spray (two) Branch times daily. mometasone 2021- Yes [id number] 1{spray Use 1 [facility] 50 5-19 } [place] in ity of mcg/actuati 00:00: each [place] on nasal 00 nostril 2 Medica l spray (two) Branch times daily. mometasone 2021- Yes [id number] 1{spray Use 1 [facility] 50 5-19 } [place] in ity of mcg/actuati 00:00: each [place] on nasal 00 nostril 2 Medica l spray (two) Branch times daily. mometasone 2021-0 Yes [id number] 1{spray Use 1 [facility] 50 5-19 } [place] in ity of mcg/actuati 00:00: each [place] on nasal 00 nostril 2 Medica l spray (two) Branch times daily. mometasone 2021-0 Yes [id number] 1{spray Use 1 [facility] 50 5-19 } [place] in ity of mcg/actuati 00:00: each [place] on nasal 00 nostril 2 Medica l spray (two) Branch times daily. mometasone 2021-0 Yes [id number] 1{spray Use 1 [facility] 50 5-19 } [place] in ity of mcg/actuati 00:00: each [place] on nasal 00 nostril 2 Medica l spray (two) Branch times daily. mometasone 2021-0 Yes [id number] 1{spray Use 1 [facility] 50 5-19 } [place] in ity of mcg/actuati 00:00: each [place] on nasal 00 nostril 2 Medica l spray (two) Branch times daily. mometasone Yes [id number] 1{spray Use 1 [facility] 50 5-19 } [place] in ity of mcg/actuati 00:00: each [place] on nasal 00 nostril 2 Medica l spray (two) Branch times daily. mometasone 2021- No [id number] 1{spray Use 1 [facility] 50 5-19 10-18 } [place] in ity of mcg/actuati 00:00: 00:00 each [place] on nasal 00 :00 nostril 2 Medica l spray (two) Branch times daily. mometasone 2021- No [id number] 1{spray Use 1 [facility] 50 5-19 10-18 } [place] in ity of mcg/actuati 00:00: 00:00 each [place] on nasal 00 :00 nostril 2 Medica l spray (two) Branch times daily. mometasone 2021- No [id number] 1{spray Use 1 [facility] 50 5-19 10-18 } [place] in ity of mcg/actuati 00:00: 00:00 each [place] on nasal 00 :00 nostril 2 Medica l spray (two) Branch times daily. mometasone 2021- No [id number] 1{spray Use 1 [facility] 50 5-19 10-18 } [place] in ity of mcg/actuati 00:00: 00:00 each [place] on nasal 00 :00 nostril 2 Medica l spray (two) Branch times daily. cetirizine Yes [id number] 10mg Take 1 U nivers (ZYRTEC) 10 5-16 tablet by ity of mg tablet 00:00: mouth [place] 00 daily. Medical Branch cetirizine Yes [id number] 10mg Take 1 U nivers (ZYRTEC) 10 5-16 tablet by ity of mg tablet 00:00: mouth [place] 00 daily. Medical Branch cetirizine Yes [id number] 10mg Take 1 U nivers (ZYRTEC) 10 5-16 tablet by ity of mg tablet 00:00: mouth [place] 00 daily. Medical Branch cetirizine Yes [id number] 10mg Take 1 U nivers (ZYRTEC) 10 5-16 tablet by ity of mg tablet 00:00: mouth [place] 00 daily. [facility] cetirizine Yes [id number] 10mg Take 1 U nivers (ZYRTEC) 10 5-16 tablet by ity of mg tablet 00:00: mouth [place] 00 daily. [facility] Branch cetirizine Yes [id number] 10mg Take 1 U nivers (ZYRTEC) 10 5-16 tablet by ity of mg tablet 00:00: mouth [place] 00 daily. [facility] Branch cetirizine Yes [id number] 10mg Take 1 U nivers (ZYRTEC) 10 5-16 tablet by ity of mg tablet 00:00: mouth [place] 00 daily. [facility] Branch cetirizine Yes [id number] 10mg Take 1 U nivers (ZYRTEC) 10 5-16 tablet by ity of mg tablet 00:00: mouth [place] 00 daily. [facility] Branch cetirizine Yes [id number] 10mg Take 1 U nivers (ZYRTEC) 10 5-16 tablet by ity of mg tablet 00:00: mouth [place] 00 daily. [facility] Branch cetirizine Yes [id number] 10mg Take 1 U nivers (ZYRTEC) 10 5-16 tablet by ity of mg tablet 00:00: mouth [place] 00 daily. [facility] Branch cetirizine Yes [id number] 10mg Take 1 U nivers (ZYRTEC) 10 5-16 tablet by ity of mg tablet 00:00: mouth [place] 00 daily. [facility] Branch cetirizine 2021- No [id number] 10mg Take 1 Univers (ZYRTEC) 10 5-16 10-18 tablet by it y of mg tablet 00:00: 00:00 mouth [place] 00 :00 daily. [facility] Branch cetirizine 2021- No [id number] 10mg Take 1 [facility] (ZYRTEC) 10 5-16 10-18 tablet by it y of mg tablet 00:00: 00:00 mouth [place] 00 :00 daily. [facility] Branch cetirizine 2021- No [id number] 10mg Take 1 Univers (ZYRTEC) 10 5-16 10-18 tablet by it y of mg tablet 00:00: 00:00 mouth [place] 00 :00 daily. [facility] Branch cetirizine 2-0 2- No [id number] 10mg Take 1 [facility] (ZYRTEC) 10 5-16 [...] capsule 00:00: [place] 00 Medical Branch ondansetron 2-0 Yes Univer [...] 4 mg tablet 5-09 ity of 00:00: [place] [address] Medical Branch DULoxetine 2022-0 Yes [facility] 30 mg 5-09 ity of capsule 00:00: [place] [address] Medical Branch gabapentin 2022-0 Yes [facility] 300 mg 5-09 ity of capsule 00:00: [place] [address] Medical Branch ondansetron 2022-0 Yes Univer s 4 mg tablet 5-09 ity of 00:00: [place] [address] Medical Branch DULoxetine 2022-0 Yes [facility] 30 mg 5-09 ity of capsule 00:00: [place] [address] Medical Branch gabapentin 2022-0 Yes [facility] 300 mg 5-09 ity of capsule 00:00: [place] [address] Medical Branch ondansetron 2022-0 Yes Univer s 4 mg tablet 5-09 ity of 00:00: [place] [address] Medical Branch DULoxetine 2022-0 Yes [facility] 30 mg 5-09 ity of capsule 00:00: [place] [address] Medical Branch gabapentin 2022-0 Yes [facility] 300 mg 5-09 ity of capsule 00:00: [place] [address] Medical Branch ondansetron 2022-0 Yes Univer s 4 mg tablet 5-09 ity of 00:00: [place] [address] Medical Branch DULoxetine 2022-0 Yes [facility] 30 mg 5-09 ity of capsule 00:00: [place] [address] Medical Branch gabapentin 2022-0 Yes [facility] 300 mg 5-09 ity of capsule 00:00: [place] [address] Medical Branch ondansetron 2022-0 Yes Univer s 4 mg tablet 5-09 ity of 00:00: [place] [address] Medical Branch DULoxetine 2022-0 Yes [facility] 30 mg 5-09 ity of capsule 00:00: [place] [address] Medical Branch gabapentin 2022-0 Yes [facility] 300 mg 5-09 ity of capsule 00:00: [place] [address] Medical Branch ondansetron 2022-0 Yes Univer s 4 mg tablet 5-09 ity of 00:00: [place] [address] Medical Branch DULoxetine 2022-0 2022- No Univer s 30 mg 5-09 10-18 ity of capsule 00:00: 00:00 [place] 00 :00 Medical Branch gabapentin 2022-0 2022- No Univer s 300 mg 5-09 10-18 ity of capsule 00:00: 00:00 [place] 00 :00 Medical Branch ondansetron 2022-0 2022- No Unive rs 4 mg tablet 09-18 ity of 00:00: 00:00 [place] 00 :00 Medical Branch DULoxetine 2022-0 2- No Univer s 30 mg 09-18 ity of capsule 00:00: 00:00 [place] 00 :00 Medical Branch gabapentin 2022-0 2- No Univer s 300 mg 09-18 ity of capsule 00:00: 00:00 [place] 00 :00 Medical Branch ondansetron 2022-0 2022- No Unive rs 4 mg tablet 09-18 ity of 00:00: 00:00 [place] 00 :00 Medical Branch DULoxetine 2022-0 2- No Univer s 30 mg 09-18 ity of capsule 00:00: 00:00 [place] 00 :00 Medical Branch gabapentin 2022-0 2- No Univer s 300 mg 09-18 ity of capsule 00:00: 00:00 [place] 00 :00 Medical Branch ondansetron 2022-0 2- No Unive rs 4 mg tablet 09-18 ity of 00:00: 00:00 [place] 00 :00 Medical Branch DULoxetine 2022-0 2- No Univer s 30 mg 09-18 ity of capsule 00:00: 00:00 [place] 00 :00 Medical Branch gabapentin 2022-0 2- [...] 5 mg tablet 4-22 ity of 00:00: [place] 00 Medical Branch amLODIPine 2022-0 Yes 5mg Take 5 mg Un sushant 5 mg tablet 09-01 by mouth. ity of 00:00: [place] 00 Medical Branch amLODIPine 2022-0 2022- No [...] 00:00 [place] 00 :00 Medical Branch buPROPion 2022-0 Yes [...] ity of 24 hr 00:00: [place] tablet [facility] Branch buPROPion Yes Univers XL 150 mg 4-20 ity of 24 hr 00:00: [place] tablet Medical Branch buPROPion Yes [facility] XL 150 mg 4-20 ity of 24 hr 00:00: [place] tablet [facility] Branch buPROPion 2022- No 150mg Take 150 Un sushant XL 150 mg 4-20 04-21 mg by ity of 24 hr 00:00: 04:59 mouth. [place] tablet 00 :00 [facility] Branch buPROPion 2022- No 150mg Take 150 Un sushant XL 150 mg 4-20 04-21 mg by ity of 24 hr 00:00: 04:59 mouth. [place] tablet 00 :00 [facility] Branch buPROPion 2022- No 150mg Take 150 Un sushant XL 150 mg 4-20 04-21 mg by ity of 24 hr 00:00: 04:59 mouth. [place] tablet 00 :00 [facility] Branch buPROPion 2022- No 150mg Take 150 Un sushant XL 150 mg 4-20 04-21 mg by ity of 24 hr 00:00: 04:59 mouth. [place] tablet 00 :00 [facility] Branch buPROPion 2022- No 150mg Take 150 Un sushant XL 150 mg 4-20 04-21 mg by ity of 24 hr 00:00: 04:59 mouth. [place] tablet 00 :00 [facility] buPROPion 2022- No 150mg Take 150 Un sushant XL 150 mg 4-20 04-21 mg by ity of 24 hr 00:00: 04:59 mouth. [place] tablet 00 :00 [facility] Branch buPROPion 2022- No 150mg Take 150 [...] by ity o f 00:00: mouth 2 [place] 00 (two) Medical times Branch daily. carvediloL [...] Immunizations Ordered Filled Immunization Date Status Comments [facility] e Immunization Name Name Influenza Virus [...] [place] [facility] 6+ MO Branch Influenza Virus 2022-02-21 Completed Universit y of Vaccine Quad .5 mL 00:00:00 [place] [facility] 6+ MO Branch Influenza Virus 2022-02-21 Completed Universit y of Vaccine Quad .5 mL 00:00:00 [facility] 6+ MO Branch Influenza Virus 2021-06-11 Completed Universit y of Vaccine 00:00:00 [facility] Influenza Virus 2021-06-11 Completed Universit y of Vaccine 00:00:00 [facility] Influenza Virus 2021-06-11 Completed Universit y of Vaccine 00:00:00 [facility] Influenza Virus 2021-06-11 Completed Universit y of Vaccine 00:00:00 [facility] Influenza Virus 2021-06-11 Completed Universit y of Vaccine 00:00:00 [facility] Influenza Virus 2021-06-11 Completed Universit y of Vaccine 00:00:00 [facility] Influenza Virus 2021-06-11 Completed Universit y of Vaccine 00:00:00 [facility] Influenza Virus 2021-06-11 Completed Universit y of Vaccine 00:00:00 [facility] Influenza Virus 2021-06-11 Completed Universit y of Vaccine 00:00:00 [facility] Influenza Virus 2021-06-11 Completed Universit y of Vaccine 00:00:00 [facility] Influenza Virus 2021-06-11 Completed Universit y of Vaccine 00:00:00 [facility] Influenza Virus 2021-06-11 Completed Universit y of Vaccine 00:00:00 [facility] Influenza Virus 2021-06-11 Completed Universit y of Vaccine 00:00:00 [facility] Influenza Virus 2021-06-11 Completed Universit y of Vaccine 00:00:00 [facility] Influenza Virus 2021-06-11 Completed Universit y of Vaccine 00:00:00 [facility] Influenza Virus 2021-06-11 Completed Universit y of Vaccine 00:00:00 [facility] Influenza Virus 2021-06-11 Completed Universit y of Vaccine 00:00:00 [facility] Influenza Virus 2021-06-11 Completed Universit y of Vaccine 00:00:00 [facility] Influenza Virus 2021-06-11 Completed Universit y of Vaccine 00:00:00 [facility] Influenza Virus 2021-06-11 Completed Universit y of Vaccine 00:00:00 [facility] Influenza Virus 2021-06-11 Completed Universit y of Vaccine 00:00:00 [facility] Influenza Virus 2021-06-11 Completed Universit y of Vaccine 00:00:00 [facility] Influenza Virus 2021-06-11 Completed Universit y of Vaccine 00:00:00 [facility] Influenza Virus 2021-06-11 Completed Universit y of Vaccine 00:00:00 [facility] Influenza Virus 2021-06-11 Completed Universit y of Vaccine 00:00:00 [facility] Influenza Virus 2021-06-11 Completed Universit y of Vaccine 00:00:00 [facility] Influenza Virus 2021-06-11 Completed Universit y of Vaccine 00:00:00 [facility] Influenza Virus 2021-06-11 Completed Universit y of Vaccine 00:00:00 [facility] Influenza Virus 2021-06-11 Completed Universit y of Vaccine 00:00:00 [facility] Influenza Virus 2021-06-11 Completed Universit y of Vaccine 00:00:00 [facility] Influenza Virus 2021-06-11 Completed Universit y of Vaccine 00:00:00 [facility] Influenza Virus 2021-06-11 Completed Universit y of Vaccine 00:00:00 [facility] Influenza Virus 2021-06-11 Completed Universit y of Vaccine 00:00:00 [facility] Influenza Virus 2021-06-11 Completed Universit y of Vaccine 00:00:00 [facility] Influenza Virus 2021-06-11 Completed Universit y of Vaccine 00:00:00 [facility] Influenza Virus 2021-06-11 Completed Universit y of Vaccine 00:00:00 [facility] Influenza Virus 2021-06-11 Completed Universit y of Vaccine 00:00:00 [facility] Influenza Virus 2021-06-11 Completed Universit y of Vaccine 00:00:00 [facility] Influenza Virus 2021-06-11 Completed Universit y of Vaccine 00:00:00 [facility] Influenza Virus 2021-06-11 Completed Universit y of Vaccine 00:00:00 [facility] Influenza Virus 2021-06-11 Completed Universit y of Vaccine 00:00:00 [facility] Influenza Virus 2021-06-11 Completed Universit y of Vaccine 00:00:00 [facility] Influenza Virus 2021-06-11 Completed Universit y of Vaccine 00:00:00 [facility] Influenza Virus 2021-06-11 Completed Universit y of Vaccine 00:00:00 [facility] Influenza Virus 2021-06-11 Completed Universit y of Vaccine 00:00:00 [facility] Influenza Virus 2021-06-11 Completed Universit y of Vaccine 00:00:00 [facility] Influenza Virus 2021-06-11 Completed Universit y of Vaccine 00:00:00 [facility] Influenza Virus 2021-06-11 Completed Universit y of Vaccine 00:00:00 [facility] Influenza Virus 2021-06-11 Completed Universit y of Vaccine Quad .5 mL 00:00:00 [facility] 6+ MO Branch Influenza Virus 2021-06-11 Completed Universit y of Vaccine 00:00:00 [facility] Influenza Virus 2021-06-11 Completed Universit y of Vaccine Quad .5 mL 00:00:00 [facility] 6+ MO Branch Influenza Virus 2021-06-11 Completed Universit y of Vaccine 00:00:00 [facility] Influenza Virus 2021-06-11 Completed Universit y of Vaccine Quad .5 mL 00:00:00 [facility] 6+ MO Branch Influenza Virus 2021-06-11 Completed Universit y of Vaccine 00:00:00 [facility] Influenza Virus 2021-06-11 Completed Universit y of Vaccine Quad .5 mL 00:00:00 [facility] 6+ MO Branch Influenza Virus 2021-06-11 Completed Universit y of Vaccine 00:00:00 [facility] Influenza Virus 2021-06-11 Completed Universit y of Vaccine Quad .5 mL 00:00:00 [place] [facility] 6+ MO Branch Influenza Virus 2021-06-11 Completed Universit y of Vaccine 00:00:00 [facility] Influenza Virus 2021-06-11 Completed Universit y of Vaccine Quad .5 mL 00:00:00 [place] [facility] 6+ MO Branch Influenza Virus 2021-06-11 Completed Universit y of Vaccine 00:00:00 [facility] Influenza Virus 2021-06-11 Completed Universit y of Vaccine Quad .5 mL 00:00:00 [place] [facility] 6+ MO Branch Influenza Virus 2021-06-11 Completed Universit y of Vaccine 00:00:00 [facility] Influenza Virus 2021-06-11 Completed Universit y of Vaccine Quad .5 mL 00:00:00 [facility] 6+ MO Branch Influenza Virus 2021-06-11 Completed Universit y of Vaccine 00:00:00 [facility] Influenza Virus 2021-06-11 Completed Universit y of Vaccine Quad .5 mL 00:00:00 [facility] 6+ MO Branch Influenza Virus 2021-06-11 Completed Universit y of Vaccine 00:00:00 [facility] Influenza Virus 2021-06-11 Completed Universit y of Vaccine Quad .5 mL 00:00:00 [facility] 6+ MO Branch Influenza Virus 2021-06-11 Completed Universit y of Vaccine 00:00:00 [facility] Influenza Virus 2021-06-11 Completed Universit y of Vaccine Quad .5 mL 00:00:00 [facility] 6+ MO Branch Influenza Virus 2021-06-11 Completed Universit y of Vaccine 00:00:00 [facility] Influenza Virus 2021-06-11 Completed Universit y of Vaccine Quad .5 mL 00:00:00 [facility] 6+ MO Branch Influenza Virus 2021-06-11 Completed Universit y of Vaccine 00:00:00 [facility] Influenza Virus 2021-06-11 Completed Universit y of Vaccine Quad .5 mL 00:00:00 [place] [facility] 6+ MO Branch Influenza Virus 2020-05-19 Completed Universit y of Vaccine 00:00:00 [facility] Influenza Virus 2020-05-19 Completed Universit y of Vaccine 00:00:00 [facility] Influenza Virus 2020-05-19 Completed Universit y of Vaccine 00:00:00 [facility] Influenza Virus 2020-05-19 Completed Universit y of Vaccine 00:00:00 [facility] Influenza Virus 2020-05-19 Completed Universit y of Vaccine 00:00:00 [facility] Influenza Virus 2020-05-19 Completed Universit y of Vaccine 00:00:00 [facility] Influenza Virus 2020-05-19 Completed Universit y of Vaccine 00:00:00 [facility] Influenza Virus 2020-05-19 Completed Universit y of Vaccine 00:00:00 [facility] Influenza Virus 2020-05-19 Completed Universit y of Vaccine 00:00:00 [facility] Influenza Virus 2020-05-19 Completed Universit y of Vaccine 00:00:00 [facility] Influenza Virus 2020-05-19 Completed Universit y of Vaccine 00:00:00 [facility] Influenza Virus 2020-05-19 Completed Universit y of Vaccine 00:00:00 [facility] Influenza Virus 2020-05-19 Completed Universit y of Vaccine 00:00:00 [facility] Influenza Virus 2020-05-19 Completed Universit y of Vaccine 00:00:00 [facility] Influenza Virus 2020-05-19 Completed Universit y of Vaccine 00:00:00 [facility] Influenza Virus 2020-05-19 Completed Universit y of Vaccine 00:00:00 [facility] Influenza Virus 2020-05-19 Completed Universit y of Vaccine 00:00:00 [facility] Influenza Virus 2020-05-19 Completed Universit y of Vaccine 00:00:00 [facility] Influenza Virus 2020-05-19 Completed Universit y of Vaccine 00:00:00 [facility] Influenza Virus 2020-05-19 Completed Universit y of Vaccine 00:00:00 [facility] Influenza Virus 2020-05-19 Completed Universit y of Vaccine 00:00:00 [facility] Influenza Virus 2020-05-19 Completed Universit y of Vaccine 00:00:00 [facility] Influenza Virus 2020-05-19 Completed Universit y of Vaccine 00:00:00 [place] [facility] Influenza Virus 2020-05-19 Completed Universit y of Vaccine 00:00:00 [facility] Influenza Virus 2020-05-19 Completed Universit y of Vaccine 00:00:00 [facility] Influenza Virus 2020-05-19 Completed Universit y of Vaccine 00:00:00 [facility] Influenza Virus 2020-05-19 Completed Universit y of Vaccine 00:00:00 [facility] Influenza Virus 2020-05-19 Completed Universit y of Vaccine 00:00:00 [facility] Influenza Virus 2020-05-19 Completed Universit y of Vaccine 00:00:00 [facility] Influenza Virus 2020-05-19 Completed Universit y of Vaccine 00:00:00 [facility] Influenza Virus 2020-05-19 Completed Universit y of Vaccine 00:00:00 [facility] Influenza Virus 2020-05-19 Completed Universit y of Vaccine 00:00:00 [facility] Influenza Virus 2020-05-19 Completed Universit y of Vaccine 00:00:00 [facility] Influenza Virus 2020-05-19 Completed [facility] Vaccine 00:[facility]:00 [facility] [place] Influ[place] Virus 2020-05-19 Completed [facility] Vaccine 00:00:00 [facility] Influenza Virus 2020-05-19 Completed [facility] Vaccine 00:00:00 [facility] Influenza Virus 2020-05-19 Completed [facility] Vaccine 00:00:00 [facility] Influenza Virus 2020-05-19 Completed [facility] Vaccine 00:00:00 [facility] Influenza Virus 2020-05-19 Completed [facility] of Vaccine 00:00:00 [facility] Influenza Virus 2020-05-19 Completed [facility] of Vaccine 00:00:00 [facility] Influenza Virus 2020-05-19 Completed [facility] of Vaccine 00:00:00 [facility] Influenza Virus 2020-05-19 Completed [facility]it [facility] of Vaccine 00:00:00 [facility] Influenza Virus 2020-05-19 Completed [facility]it [facility] of Vaccine 00:00:00 [facility] Influenza Virus 2020-05-19 Completed [facility] of Vaccine 00:00:00 [facility] Influenza Virus 2020-05-19 Completed [facility] Vaccine 00:00:00 [place] [facility] Influenza Virus 2020-05-19 Completed [facility]it y of Vaccine 00:00:00 [facility] Influenza Virus 2020-05-19 Completed [facility]it [facility] of Vaccine 00:00:00 [facility] Influenza Virus 2020-05-19 Completed [facility] Vaccine 00:00:00 [place] [facility] Influenza Virus 2020-05-19 Completed [facility]it y of Vaccine 00:00:00 [facility] Influenza Virus 2020-05-19 Completed [facility]it y of Vaccine 00:00:00 [facility] Influenza Virus 2020-05-19 Completed [facility] of Vaccine 00:00:00 [facility] Influenza Virus 2020-05-19 Completed [facility]it [facility] of Vaccine 00:00:00 [facility] Influenza Virus 2020-05-19 Completed [facility]it [facility] of Vaccine 00:00:00 [facility] Influenza Virus 2020-05-19 Completed [facility] of Vaccine 00:00:00 [facility] Influenza Virus 2020-05-19 Completed [facility] of Vaccine 00:00:00 [facility] Influenza Virus 2020-05-19 Completed [facility]it [facility] of Vaccine 00:00:00 [facility] Influenza Virus 2020-05-19 Completed [facility]it [facility] of Vaccine 00:00:00 [facility] Influenza Virus 2020-05-19 Completed [facility]it [facility] of Vaccine 00:00:00 [facility] Influenza Virus 2020-05-19 Completed [facility] of Vaccine 00:00:00 [facility] Influenza Virus 2020-05-19 Completed [facility] of Vaccine 00:00:00 [facility] Influenza Virus 2020-05-16 Completed Universit y of [...] (ADACEL) 2019-05-21 Completed University of VACCINE 00:00:00 [facility] TDAP (ADACEL) 2019-05-21 Completed University of VACCINE 00:00:00 [facility] TDAP (ADACEL) 2019-05-21 Completed University of VACCINE 00:00:00 [facility] TDAP (ADACEL) 2019-05-21 Completed University of VACCINE 00:00:00 [facility] TDAP (ADACEL) 2019-05-21 Completed University of VACCINE 00:00:00 [facility] TDAP (ADACEL) 2019-05-21 Completed University of VACCINE 00:00:00 [facility] TDAP (ADACEL) 2019-05-21 Completed University of VACCINE 00:00:00 [facility] TDAP (ADACEL) 2019-05-21 Completed University of VACCINE 00:00:00 [facility] TDAP (ADACEL) 2019-05-21 Completed University of VACCINE 00:00:00 [facility] TDAP (ADACEL) 2019-05-21 Completed University of VACCINE 00:00:00 [facility] TDAP (ADACEL) 2019-05-21 Completed University of VACCINE 00:00:00 [facility] TDAP (ADACEL) 2019-05-21 Completed University of VACCINE 00:00:00 [facility] TDAP (ADACEL) 2019-05-21 Completed University of VACCINE 00:00:00 [facility] TDAP (ADACEL) 2019-05-21 Completed University of VACCINE 00:00:00 [facility] TDAP (ADACEL) 2019-05-21 Completed University of VACCINE 00:00:00 [facility] TDAP (ADACEL) 2019-05-21 Completed University of VACCINE 00:00:00 [facility] TDAP (ADACEL) 2019-05-21 Completed University of VACCINE 00:00:00 [facility] TDAP (ADACEL) 2019-05-21 Completed University of VACCINE 00:00:00 [facility] TDAP (ADACEL) 2019-05-21 Completed University of VACCINE 00:00:00 [facility] TDAP (ADACEL) 2019-05-21 Completed University of VACCINE 00:00:00 [facility] TDAP (ADACEL) 2019-05-21 Completed University of VACCINE [...] (ADACEL) 2019-05-21 Completed University of VACCINE 00:00:00 [facility] TDAP (ADACEL) 2019-05-21 Completed University of VACCINE 00:00:00 [facility] TDAP (ADACEL) 2019-05-21 Completed University of VACCINE 00:00:00 [facility] TDAP (ADACEL) 2019-05-21 Completed University of VACCINE 00:00:00 [facility] TDAP (ADACEL) 2019-05-21 Completed University of VACCINE 00:00:00 [facility] TDAP (ADACEL) 2019-05-21 Completed University of VACCINE 00:00:00 [facility] TDAP (ADACEL) 2019-05-21 Completed University of VACCINE 00:00:00 [facility] TDAP (ADACEL) 2019-05-21 Completed [facility] of VACCINE 00:00:00 [facility] Influenza Virus 2019-02-06 Completed Universit y of [...] Quad .5 mL 00:00:00 [facility] 6+ MO Branch Influenza Virus 2019-02-06 Completed [...] Vaccine Quad .5 mL 00:00:00 [place] [facility] 6+ MO [facility] Influenza Virus 2019-02-06 [...] 00:00:00 [place] [facility] 6+ [facility] Vital Signs Vital Name Observation Time Observation Value Comments Source Systolic blood 2022-11-21 21:40:00 122 mm[Hg] Univer sity of pressure [facility] Diastolic blood 2022-11-21 21:40:00 90 mm[Hg] Unive rsity of pressure [facility] Heart rate 2022-11-21 21:40:00 92 /[facility] Respiratory rate 2022-11-21 21:40:00 16 /min [facility] Oxygen saturation in 2022-11-21 21:40:00 99 /min University of Arterial blood by [employer] Pulse oximetry Branch Body temperature 2022-11-21 18:07:00 37.28 Irene [facility] Body weight 2022-11-21 18:07:00 68.04 kg [facility] BMI 2022-11-21 18:07:00 28.34 kg/m2 [facility] Systolic blood 2022-09-05 17:22:00 139 mm[Hg] Univer sity of pressure [facility] Diastolic blood 2022-09-05 17:22:00 91 mm[Hg] Unive rsity of pressure [facility] Heart rate 2022-09-05 17:22:00 120 /min [facility] Respiratory rate 2022-09-05 17:22:00 18 /min Univ ersity of [facility] Oxygen saturation in 2022-09-05 17:22:00 99 /min University of Arterial blood by [employer] Pulse oximetry Branch Body temperature 2022-09-05 13:43:00 37.11 Irene [facility] [place] [facility] Body weight 2022-09-05 13:43:00 68.04 kg [facility]i [facility] [place] [facility] BMI 2022-09-05 13:43:00 28.34 kg/m2 [facility] [place] [facility] Systolic blood 2022-08-01 00:49:00 138 mm[Hg] Univer sity of pressure [facility] Diastolic blood 2022-08-01 00:49:00 104 mm[Hg] Unive rsity of pressure [facility] Heart rate 2022-08-01 00:49:00 108 /min [facility] [place] [facility] Respiratory rate 2022-08-01 00:49:00 18 /min Univ [facility] [place] [facility] Oxygen saturation in 2022-08-01 00:49:00 99 /min [facility] Arterial blood by [employer] Pulse oximetry Branch Body temperature 2022-07-31 22:52:00 [...] 99 /min [facility] of Arterial blood by [employer] [facility] Pulse oximetry Branch Systolic blood 2022-06-23 15:26:00 111 mm[Hg] Univer sity of pressure [facility] Diastolic blood 2022-06-23 15:26:00 75 mm[Hg] Unive rsity of pressure [facility] Heart rate 2022-06-23 15:26:00 108 /min [facility] [place] [facility] Body temperature 2022-06-23 15:26:00 36.83 Irene [facility] [place] [facility] Respiratory rate 2022-06-23 15:26:00 18 /min [facility] [place] [facility] Body height 2022-06-23 15:26:00 154.9 cm [facility] [place] [facility] Body weight 2022-06-23 15:26:00 71.385 kg [facility] [place] [facility] BMI 2022-06-23 15:26:00 29.74 kg/m2 [facility] [place] [facility] Oxygen saturation in 2022-06-23 15:26:00 99 /min [facility] Arterial blood by [place] [employer] [facility] Pulse oximetry Branch Systolic blood 2022-05-05 22:05:00 126 mm[Hg] Univer sity of pressure [facility] Diastolic blood 2022-05-05 22:05:00 75 mm[Hg] Unive rsity of pressure [facility] Heart rate 2022-05-05 22:05:00 99 /min [facility]i [facility] [place] [facility] Respiratory rate 2022-05-05 22:05:00 16 /min Univ ers[facility] [place] [facility] Oxygen saturation in 2022-05-05 22:05:00 99 /min [facility] Arterial blood by [place] [employer] [facility] Pulse oximetry Branch Body temperature 2022-05-05 18:24:00 37.11 Irene [facility] [place] [facility] Body height 2022-05-05 18:24:00 154.9 cm [facility] [place] [facility] Body weight 2022-05-05 18:24:00 54.432 kg [facility] [place] [facility] BMI 2022-05-05 18:24:00 22.67 kg/m2 [facility] [place] [facility] Systolic blood 2022-04-26 14:28:00 135 mm[Hg] Univer sity of pressure [facility] Diastolic blood 2022-04-26 14:28:00 95 mm[Hg] Unive rsity of pressure [place] [facility] Heart rate 2022-04-26 14:28:00 93 /min [facility] [place] [facility] Body temperature 2022-04-26 14:28:00 36.89 Irene [facility] [place] [facility] Respiratory rate 2022-04-26 14:28:00 18 /min Univ ersity [facility] [place] [facility] Body height 2022-04-26 14:28:00 154.9 cm [facility] [place] [facility] Body weight 2022-04-26 14:28:00 54.432 kg [facility] [place] [facility] BMI 2022-04-26 14:28:00 22.67 kg/m2 [facility] [place] [facility] Oxygen saturation in 2022-04-26 14:28:00 100 /min [facility] Arterial blood by [place] [employer] [facility] Pulse oximetry Branch Systolic blood 2022-04-26 00:21:00 151 mm[Hg] Univer sity of pressure [facility] Diastolic blood 2022-04-26 00:21:00 98 mm[Hg] Unive rsity of pressure [facility] Heart rate 2022-04-26 00:21:00 98 /min [facility] [place] [facility] Body temperature 2022-04-26 00:21:00 36.72 Irene [facility] [place] [facility] Respiratory rate 2022-04-26 00:21:00 18 /min Univ [facility] [place] [facility] Body height 2022-04-26 00:21:00 154.9 cm [facility] [place] [facility] Body weight 2022-04-26 00:21:00 54.432 kg [facility] [place] [facility] BMI 2022-04-26 00:21:00 22.67 kg/m2 [...] of [place] Pulse oximetry [facility] Systolic blood 2022-04-07 22:43:36 [...] [facility] [place] [facility] Body temperature 2022-04-07 19:41:00 37.17 Irene [facility] [place] [facility] Body height 2022-04-07 19:41:00 154.9 cm [facility] [place] [facility] Body weight 2022-04-07 19:41:00 60.328 kg [facility] [place] [facility] BMI 2022-04-07 19:41:00 25.13 kg/m2 [facility] [place] [facility] Systolic blood 2022-03-24 19:00:00 125 mm[Hg] Univer sity of pressure [facility] Diastolic blood 2022-03-24 19:00:00 86 mm[Hg] Unive rsity of pressure [facility] Heart rate 2022-03-24 19:00:00 93 /min [facility] [place] [facility] Respiratory rate 2022-03-24 19:00:00 17 /min Univ ersity [facility] [place] [facility] Oxygen saturation in 2022-03-24 19:00:00 97 /min [facility] of Arterial blood by [facility] [place] Pulse oximetry Branch Body temperature 2022-03-24 13:33:00 36.78 Irene [facility] [place] [facility] Systolic blood 2022-03-15 19:23:00 128 mm[Hg] Univer sity of pressure [facility] Diastolic blood 2022-03-15 19:23:00 89 mm[Hg] Unive rsity of pressure [facility] Heart rate 2022-03-15 19:23:00 104 /min [facility] [place] [facility] Body weight 2022-03-15 19:23:00 60.328 kg [facility] [place] [facility] BMI 2022-03-15 19:23:00 25.13 kg/m2 [facility] [place] [facility] Oxygen saturation in 2022-03-15 19:23:00 98 /min [facility] Arterial blood by [place] [facility] [facility] Pulse oximetry Branch Systolic blood 2022-03-15 15:02:00 115 mm[Hg] Univer sity of pressure [facility] Diastolic blood 2022-03-15 15:02:00 70 mm[Hg] Unive rsity of pressure [facility] Heart rate 2022-03-15 15:02:00 85 /min [facility] [place] [facility] Respiratory rate 2022-03-15 15:02:00 20 /min Univ ers[facility] [place] [facility] Oxygen saturation in 2022-03-15 15:02:00 99 /min [facility] Arterial blood by [place] [facility] [facility] Pulse oximetry Branch Body temperature 2022-03-15 13:38:00 36.94 Irene [facility] [place] [facility] Body height 2022-03-15 13:38:00 154.9 cm [facility] [place] [facility] Body weight 2022-03-15 13:38:00 54.432 [...] 100 /min [facility] of Arterial blood by [employer] [facility] Pulse oximetry Branch Body height 2022-03-11 [...] 100 /min [facility] Arterial blood by [place] [employer] [facility] Pulse oximetry Branch Systolic blood 2022-02-27 13:19:00 131 mm[Hg] Univer sity of pressure [facility] Diastolic blood 2022-02-27 13:19:00 86 mm[Hg] Unive rsity of pressure [facility] Heart rate 2022-02-27 13:19:00 102 /min [facility] [place] [facility] Body temperature 2022-02-27 13:19:00 36.33 Irene [facility] [place] [facility] Body height 2022-02-27 13:19:00 154.9 cm [facility] [place] [facility] Body weight 2022-02-27 13:19:00 58.968 kg [facility] [place] [facility] BMI 2022-02-27 13:19:00 24.56 kg/m2 [facility] [place] [facility] Oxygen saturation in 2022-02-27 13:19:00 99 /min [facility] Arterial blood by [place] [facility] Pulse oximetry Branch Systolic blood 2022-02-21 [...] [facility] [place] [facility] Body temperature 2022-02-21 06:16:00 36.94 Irene [facility] [place] [facility] Body height 2022-02-21 06:16:00 154.9 cm [facility] [place] [facility] Body weight 2022-02-21 06:16:00 60.963 kg [facility] [place] [facility] BMI 2022-02-21 06:16:00 25.39 kg/m2 [facility] [place] [facility] Systolic blood 2022 20:08:00 136 mm[Hg] Univer sity of pressure [facility] Diastolic blood 2022 20:08:00 96 mm[Hg] Unive rsity of pressure [facility] Heart rate 2022 20:08:00 100 /min [facility] [place] [facility] Respiratory rate 2022 20:08:00 20 /min Univ [facility] [place] [facility] Oxygen saturation in 2022 20:08:00 98 /min [facility] of Arterial blood by [facility] [place] Pulse oximetry Branch Body temperature 2022 16:56:00 [...] 99 /min [facility] Arterial blood by [facility] [place] Pulse oximetry Branch Body weight 2022-01-18 10:18:00 54.432 kg [facility] [place] [facility] BMI 2022-01-18 10:18:00 22.67 kg/m2 [facility] [place] [facility] Body temperature 2022-01-18 10:15:00 36.72 Irene [facility] [place] [facility] Systolic blood 2022-01-15 15:48:26 125 mm[Hg] Univer sity of pressure [facility] Diastolic blood 2022-01-15 15:48:26 85 mm[Hg] Unive rsity of pressure [facility] Heart rate 2022-01-15 15:48:26 95 /min [facility] [place] [facility] Respiratory rate 2022-01-15 15:48:26 18 /min Univ [facility] [place] [facility] Oxygen saturation in 2022-01-15 15:48:26 98 /min [facility] of Arterial blood by [facility] [place] Pulse oximetry Branch Body temperature 2022-01-15 13:32:00 37.11 Irene [facility] [place] [facility] Body height 2022-01-15 13:32:00 154.9 cm [facility] [place] [facility] Body weight 2022-01-15 13:32:00 54.432 kg [facility] [place] [facility] [place] BMI 2022-01-15 13:32:00 22.67 kg/m2 Universi ty of [facility] Systolic blood 2022-01-09 00:37:11 127 mm[Hg] Univer sity of pressure [facility] Diastolic blood 2022-01-09 00:37:11 90 mm[Hg] Unive rsity of [facility] Heart rate 2022-01-09 00:37:11 94 /min Universi ty of [facility] Body temperature 2022-01-09 00:37:11 37.11 Irene Univ ersity of [facility] Respiratory rate 2022-01-09 00:37:11 16 /min [facility] Oxygen saturation in 2022-01-09 00:37:11 97 /min [facility] blood by [facility] Pulse oximetry [place] Body height 2022-01-08 23:03:00 154.9 cm Universi ty of [facility] Body weight 2022-01-08 23:03:00 58.06 kg Universi ty of [facility] BMI 2022-01-08 23:03:00 24.19 kg/m2 Universi ty of [facility] Systolic blood 2021-12-12 18:00:00 126 mm[Hg] Univer sity of [facility] Diastolic blood 2021-12-12 18:00:00 87 mm[Hg] Unive rsity of [facility] Heart rate 2021-12-12 18:00:00 86 /min Universi ty of [facility] Body temperature 2021-12-12 18:00:00 36.89 Irene Univ ersity of [facility] Respiratory rate 2021-12-12 18:00:00 18 /min Univ ersity of [facility] Body height 2021-12-12 18:00:00 154.9 cm Universi ty of [facility] Body weight 2021-12-12 18:00:00 57.153 kg Universi ty of [facility] BMI 2021-12-12 18:00:00 23.81 kg/m2 Universi ty [facility] Procedures Procedure Date / Time Performing Clinician Source Performed ASSIGNMENT OF BENEFITS 2022-11-21 19:49:02 Doctor Unassigned, No [facility] CONSENT/REFUSAL FOR 2022-11-21 18:03:25 Doctor Unassigned, No [facility] [place] DI[facility] TREATMENT Name [facility] CONSENT/REFUSAL FOR 2022-09-05 13:42:02 Doctor Unassigned, No [facility] [place] [facility]AT[facility] Name [facility] [place] LIPASE 2022-07-31 23:13:00 Manju Newell [facility] TEST, SERUM 2022-07-31 23:13:00 [facility] MET[facility]OLIC PANEL 2022-07-31 23:13:00 Manju Newell [facility] [place] ([id number]) [facility] CBC WITH DIFF 2022-07-31 23:13:00 [facility] CONSENT/REFUSAL FOR 2022-07-31 22:49:17 Doctor [facility]igned, [facility] [place] [facility] XR ANKLE 3+ VW RIGHT 2022-07-15 16:00:00 Cari Kaur [facility] XR FOOT 3+ VW RIGHT 2022-07-15 16:00:00 Cari Kaur [facility] XR FOOT 3+ VW RIGHT 2022-07-15 16:00:00 Cari Kaur [facility] PATIENT FINANCIAL 2022-07-15 15:25:53 Doctor Unassigned, No [facility] POLICY [facility] POCT MOLECULAR STREP 2022-06-23 16:06:00 Unknown, Attending [facility] ASSIGNMENT OF BENEFITS 2022-06-23 15:18:28 Doctor Unassigned, No [facility] COMP. METABOLIC PANEL 2022-05-05 19:14:00 Karon Norton [facility] ([id number]) [facility] CBC WITH DIFF 2022-05-05 19:14:00 Karon Norton [facility] POCT TEST 2022-05-05 19:00:00 Karon Norton [facility] URINALYSIS 2022-05-05 18:58:00 Karon Norton [facility] CT ABDOMEN PELVIS WO 2022-04-26 15:11:00 Zion Bridges [facility] CONTRAST [facility] COMP. METABOLIC PANEL 2022-04-26 14:49:00 Zion Bridges [facility] ([id number]) [facility] [place] CBC WITH DIFF 2022-04-26 14:49:00 [facility] URINALYSIS 2022-04-26 14:49:00 [facility] POCT TEST 2022-04-26 14:45:00 Zion Bridges [facility] CONSENT/REFUSAL FOR 2022-04-26 14:22:29 Doctor Unassigned, No [facility] [place] [facility] POCT TEST 2022-04-26 01:22:00 Zion Bridges [facility] ASSIGNMENT OF BENEFITS 2022-04-26 00:54:02 Doctor Unassigned, No [facility] URINALYSIS 2022-04-26 00:45:00 [facility] CONSENT/REFUSAL FOR 2022-04-26 00:16:47 Doctor Unassigned, No [facility] [place] [facility]ATMENT [facility] BASIC METABOLIC PANEL 2022-04-07 22:35:00 Olamide Garvin [facility] (NA, K, CL, CO2, Medical Branch GLUCOSE, BUN, CREATININE, CA) CBC WITH DIFF 2022-04-07 22:35:00 Olamide Garvin [facility] URINALYSIS 2022-04-07 21:36:00 Olamide Garvin [facility] URINE DRUG (IMMUNOASSAY) 2022-04-07 21:36:00 Olamide Garvin [facility] [place] - COMPREHENSIVE DRUG Medical [facility] SCREEN W/O REFLEX CONSENT/REFUSAL FOR 2022-04-07 19:29:15 Doctor Unassigned, No [facility] [place] [facility] POCT TEST 2022-03-24 14:07:00 Kellie Duncan [facility] CONSENT/REFUSAL FOR 2022-03-24 13:27:20 Doctor Unassigned, No [facility] [place] [facility] TREATMENT Name [facility] CT ABDOMEN PELVIS WO 2022-03-15 14:09:04 Anna Gould [facility] CONTRAST [facility] URINALYSIS 2022-03-15 13:53:00 [facility] POCT TEST 2022-03-15 13:52:00 Anna Gould [facility] CONSENT/REFUSAL FOR 2022-03-15 13:37:02 Doctor Unassigned, No [facility] [place] [facility] Name Medical [facility] POCT TEST 2022-03-11 14:59:00 Angelica Viveros [facility] FLU VACC (), 6 2022-02-27 13:34:55 Vijay Martinez [facility] MO-64 YRS, .5ML, IM, [facility] QUAD (FLUCELVAX) NOTICE OF PRIVACY 2022-02-21 06:06:30 Doctor Unassigned, No [facility] PRACTICES Name Medical Branch CONSENT/REFUSAL FOR 2022-02-21 06:03:41 Doctor Unassigned, No [facility] [place] [facility] Name [facility] XR ANKLE <3 VW RIGHT 2022 17:56:42 Maggie Hamilton [facility] CT ABDOMEN PELVIS W 2022 17:44:17 Maggie Hamilton [facility] CT TRAUMA CERVICAL SPINE 2022 17:43:[address] [facility] WO CONTRAST [facility] POCT TEST 2022 17:27:00 Maggie Hamilton [facility] COMP. METABOLIC PANEL 2022 17:17:00 Maggie Hamilton [facility] ([id number]) [facility] [place] CBC WITH DIFF 2022 17:17:00 Maggie [facility] CONSENT/REFUSAL FOR 2022 16:53:13 Doctor Unassigned, No [facility] [place] DI[facility]NOS[facility] AND TREATMENT Name [facility] US GALL BLADDER 2022-01-18 12:31:09 Bernardo Levy [facility] US PELVIS COMPLETE WITH 2022-01-18 12:21:13 Melvin Zhao [facility] TRANSVAGINAL [facility] CT ABDOMEN PELVIS W 2022-01-18 11:20:50 Melvin Zhao [facility] CONTRAST [facility] POCT TEST 2022-01-18 10:57:00 Jayy Kennedy [facility] COVID-19 (ID NOW RAPID 2022-01-18 10:57:00 Jayy Kennedy [facility] TESTING) Medical Branch URINALYSIS 2022-01-18 10:47:00 [facility] Center LIPASE 2022-01-18 10:29:00 Jayy Kennedy [facility] TEST, SERUM 2022-01-18 10:29:[address] [facility] HEPATIC FUNCTION PANEL 2022-01-18 10:29:00 Jayy Kennedy [facility] ([id number]) (ALB,T.PRO,BILI [facility] T,BU/BC,ALT,AST,ALK PHOS) BASIC METABOLIC PANEL 2022-01-18 10:29:00 Jayy Kennedy [facility] (NA, K, CL, CO2, Medical Branch GLUCOSE, BUN, CREATININE, CA) CBC WITH DIFF 2022-01-18 10:29:00 Jayy Kennedy [facility] CONSENT/REFUSAL FOR 2022-01-18 10:13:31 Doctor Unassigned, [facility] CT HEAD WO CONTRAST 2022-01-15 15:22:29 Danita [facility] TEST, SERUM 2022-01-15 14:36:00 Danita [facility] BASIC METABOLIC PANEL 2022-01-15 14:36:00 Danita [facility] (NA, K, CL, CO2, [facility] GLUCOSE, BUN, CREATININE, CA) CBC WITH DIFF 2022-01-15 14:36:00 Danita [facility] CONSENT/REFUSAL FOR 2022-01-15 13:28:12 Doctor Unassigned, [facility] Name [facility] XR CERVICAL SPINE 4 VW 2022-01-09 00:29:16 Gabriela Humberto [facility] XR LUMBAR SPINE 4 VW 2022-01-09 00:29:[address] [facility] XR SPINE THORACIC 3 VW 2022-01-09 00:29:16 Humberto Ochoa [facility] URINALYSIS 2022-01-08 23:50:00 Gabriela Humberto [facility] CONSENT/REFUSAL FOR 2022-01-08 22:51:08 Doctor Unassigned, No Un [facility] DIAGNOSIS AND TREATMENT Name Medical Branch GALV ONLY - VAGINAL 2021-12-12 18:37:00 Prasanna Vargas [facility] PATHOGENS BY NUCLEIC Medical [facility] ACID TESTING URINE CULTURE 2021-12-12 18:32:00 Prasanna Vargas [place] [facility] POCT TEST 2021-12-12 18:31:00 Prasanna Vargas [facility] POCT URINALYSIS W/O 2021-12-12 18:31:00 Prasanna Vargas [facility] SPECIFIC GRAVITY [facility] Encounters Start End Encounter Admission Attending Care Care Encounter Source Date/Time Date/Time Type Type Clinicians Facility Department ID 2021-03-14 Emergency [facility] [id number] Univers 03:14:31 ity of [facility] 2021-03-13 Emergency [facility] [id number] Univers 20:05:20 ity of [facility] 2021-03-13 Emergency [facility] [id number] Univers 12:48:28 ity of [facility] 2021-03-13 Emergency [facility] [id number] Univers 02:43:51 ity of [facility] 2021-03-13 Emergency [facility] [id number] Univers 00:27:09 ity of [facility] 2021-03-12 Emergency [facility] [id number] Univers 22:10:36 ity of [facility] 2021-03-12 Emergency [facility] [id number] Univers 20:04:05 ity of [facility] 2021-03-12 Emergency [facility] [id number] Univers 15:25:05 ity of [facility] 2021-03-12 Emergency [facility] [id number] Univers 11:43:36 ity of [facility] 2021-03-12 Emergency [facility] [id number] Univers 07:41:37 ity of [facility] 2021-03-12 Emergency [facility] [id number] Univers 05:43:47 ity of [facility] 2021-03-12 Emergency [facility] [id number] Univers 03:43:41 ity of [facility] 2021-03-12 Emergency [facility] [id number] Univers 01:31:27 ity of [facility] 2021-03-12 Emergency X [facility] ERT [id number] Univers 00:56:44 ity of [facility] 2021-03-12 Emergency [facility] [id number] Univers 00:56:31 ity of [facility] 2021-03-11 Emergency [facility] [id number] Univers 17:47:02 ity of [facility] 2021-03-11 Emergency [facility] [id number] Univers 16:27:15 ity of [facility] 2021-03-11 Emergency [facility] [id number] Univers 12:00:58 ity of [facility] 2021-03-11 Emergency [facility] [id number] Univers 10:33:59 ity of [facility] 2021-03-11 Emergency [facility] [id number] Univers 01:36:52 ity of [facility] 2021-03-10 Emergency [facility] [id number] Univers 23:35:34 ity of [facility] 2021-03-10 Emergency [facility] [id number] Univers 19:06:16 ity of [facility] 2021-03-10 Emergency [facility] [id number] Univers 12:39:47 ity of [facility] 2021-03-10 Emergency [facility] [id number] Univers 06:54:04 ity of [facility] 2021-03-09 Outpatient P [facility] CHRIS [id number] Univers 13:25:44 ity of [facility] 2021-03-09 Outpatient P [facility] CHRIS [id number] Univers 13:08:01 ity of [facility] 2021-03-09 Outpatient P [facility] CHRIS [id number] Univers 12:37:25 ity [facility] 2021-03-09 Outpatient P [facility] CHRIS [id number] Univers 11:51:20 ity [facility] 2022-11-21 2022-11-21 Emergency X OSIRIS [facility] ERT [id number] Univers 13:08:00 16:45:00 MANJU it y of [facility] 2022-11-21 2022-11-21 Emergency Singer Zion [facility] 1.2.840. 114 [id number] Univers 13:08:00 16:45:00 Manju Newell LULU 350.1.13. 10 ity of [place] 4.2.7.2.686 [place] [facility] [id number] [address] 2022-11-18 2022-11-18 Outpatient [facility] [id number] [place] 10:08:00 10:08:00 0[address] [place] 2022-11-15 2022-11-15 Outpatient R ISIDROLIAN Dowling [facility] [id number] Univers 09:40:00 09:40:00 ISIDROChino LIAN chino [facility] 2022-11-09 2022-11-09 Outpatient [facility] [id number] Willis 15:26:18 15:26:18 0630 [facility] 2022-11-06 2022-11-06 Outpatient R JUAN [facility] [id number] Univers 13:00:00 13:00:00 VIJAY ankush [facility] 2022-10-29 2022-10-29 Patient Jc [facility] 1.2.840.114 [id number] Univers 00:00:00 00:00:00 Secure Msg [facility] 350.1.13.10 ity kenan [place] 4.2.7.2.686 [place] TOÑO?BLEA [id number] [address] MEDICAL OFFICE BUILDING 2022-10-29 2022-10-29 Patient Prasanna Vargas [facility] 1.2.903.074 [id number] Univers 00:00:00 00:00:00 Secure Msg J[facility] 350.1.13.10 ity of [facility] 4.2.7.2.686 [place] [id number] Ct dical NAL 134 [facility] 2022-10-03 2022-10-03 Letter Gurjit Lim [facility] 1.2.840.114 [id number] Univers 00:00:00 00:00:00 (Out) HEALTH 350.1.13.10 it y of [place] 4.2.7.2.686 [place] TOÑO?BLEA [id number] [facility] IVÁN [address] [place] [address] OFFICE [facility] 2022-10-02 2022-10-02 Outpatient R SHARMIN [facility] [id number] Univers 10:00:00 10:00:00 , CELINA it y of [facility] 2022-10-01 2022-10-01 Outpatient R ARJUN [facility] [id number] Univers 09:40:00 09:40:00 REJI lechuga o f [facility] 2022-09-25 2022-09-25 [address] [facility] 1..370.304 [id number] Univers 00:00:00 00:00:00 Rad [place] 350.1.13.10 ity of [place] 4.2.7.2.686 [place] [id number] [facility] 059 [facility] 2022-09-21 2022-09-21 Outpatient R LEXY [facility] [id number] Univers 09:30:00 09:30:00 KASSANDRA ity of [facility] 2022-09-21 2022-09-21 Letter [facility] 1..840.114 [id number] Univers 00:00:00 00:00:00 (Out) Kassandra HEALTH 350.1.13.10 it y of [place] 4.2.7.2.686 [place] as TOÑO?BLEA [id number] [address] 2022-09-21 2022-09-21 [address] [facility] 1.2.478.491 [id number] Univers 00:00:00 00:00:00 Kassandra HEALTH 350.1.13.10 it y of [place] 4.2.7.2.686 Martin as TOÑO?BLEA [id number] Ct whit [address] OFFICE [facility] 2022-09-21 2022-09-21 Telephone [facility] 1.2.685.669 [id number] Univers 00:00:00 00:00:00 Meshify 350.1.13.10 it y of [place] 4.2.7.2.686 [place] TOÑO?BLEA [id number] [address] 2022-09-14 2022-09-14 Outpatient R [facility] [id number] Univers 09:30:00 09:30:00 KASSANDRA itchino [facility] 2022-09-12 2022-09-12 Telephone [facility] 1.2.783.794 [id number] Univers 00:00:00 00:00:00 Meshify 350.1.13.10 it y [facility] 4.2.7.2.686 [place] TOÑO?BLEA [id number] [address] 2022-09-07 2022-09-07 Outpatient R [facility] [id number] Univers 11:30:00 [facility]:30:[facility] 2022-09-05 2022-09-05 Emergency X [facility] ERT [id number] Univers 08:44:00 13:15:00 CYNVANESA [facility] 2022-09-05 2022-09-05 Emergency [facility] 1..353.543 [id number] Univers 08:44:00 13:15:00 Cynise MARIANNA 350.1.13.10 i ty of [place] 4.2.7.2.686 [place] [id number] [address] 2022-09-04 2022-09-04 Telephone [facility] 1.2.567.032 [id number] Univers 00:00:00 00:00:00 Kassandra HEALTH 350.1.13.10 it y of [place] 4.2.7.2.686 [place] as TOÑO?BLEA [id number] Ct dical [address] OFFICE [facility] 2022-09-04 2022-09-04 Patient Serra, [facility] 1.2.840.114 [id number] Univers 00:00:00 00:00:00 Secure Msg Sendzohra [place] 350.1.13.10 ity of [facility] 4.2.7.2.[address] [facility] [id number] Ct [facility] 059 [facility] 2022-08-29 2022-08-29 Outpatient R SHARMIN [facility] [id number] Univers 09:00:00 09:00:00 , CELINA it y of [facility] 2022-08-14 2022-08-14 Patient Doctor [facility] 1.2.840.114 [id number] Univers 00:00:00 00:00:00 Secure Msg Unassigned, [facility] 350.1.13.10 ity of [place] [facility] 4.2.7.2.686 [place] TOÑO?BLEA [id number] [place] [id number] [facility] 2022-07-31 2022-07-31 Emergency [facility] ERT [id number] Univers 17:56:00 20:30:00 CHRISTMARLENE it y of [facility] 2022-07-31 2022-07-31 Emergency [facility] 1.2.803.050 [id number] Univers 17:56:00 20:30:00 Christmarlene [place] 350.1.13.10 ity of [place] 4.2.7.2.686 [place] [id number] [facility] [address] [place] 2022-07-15 2022-07-15 [facility] 1.2.840.114 [id number] Univers 09:46:45 23:59:00 Encounter Cari [employer] HEALTH 350.1.13.10 ity of [place] 4.2.7.2.686 [place] as TOÑO?BLEA [id number] Ct dical MARY 808 [facility] OFFICE [facility] 2022-07-15 2022-07-15 [facility] 1.2.840.114 [id number] Univers 09:46:45 23:59:00 Encounter Cari J HEALTH 350.1.13.10 ity of [place] 4.2.7.2.686 [place] as TOÑO?BLEA [id number] Ct whit MARY 808 [facility] OFFICE [facility] 2022-07-15 2022-07-15 Outpatient R NATASHA [facility] [id number] Univers 09:46:45 23:59:00 CARI ity o f [facility] 2022-07-15 2022-07-15 Urgent Cari Kaur [facility] 1.2.840 .114 [id number] Univers 09:20:00 10:29:17 Care Unknown, Attending HEALTH 350.1.13.10 ity of [place] 4.2.7.2.686 [place] as TOÑO?BLEA [id number] [address] 2022-07-15 2022-07-15 Orders Doctor ORTEGA 1.2.840.114 [id number] Univers 00:00:00 00:00:00 Only Unassigned, YAZMIN 350.1.13.10 ity of [place] HOSPITAL 4.2.7.2.686 [place] as [id number] [address] 2022-06-23 2022-06-23 Outpatient R DANITASELECT [facility]ICAL [facility] [id number] Univers 09:20:00 10:27:39 OMAYEMI ity of [facility] 2022-06-23 2022-06-23 Urgent [facility] 1.2.840. 114 [id number] Univers 09:20:00 10:27:39 Care Unknown, Attending HEALTH 350.1.13.10 ity of [place] 4.2.7.2.686 [place] as TOÑO?BLEA [id number] [address] OFFICE [facility] 2022-06-23 2022-06-23 Orders Doctor JORDAN 1.2.840.114 [id number] Univers 00:00:00 00:00:00 Only Unassigned, YAZMIN 350.1.13.10 ity of [place] HOSPITAL 4.2.7.2.686 [place] as [id number] [address] 2022-06-15 2022-06-15 Outpatient R JC, [facility] [id number] Univers 09:40:00 09:40:00 LIAN chino [facility] 2022-05-29 2022-05-29 Outpatient R LEXY, [facility] [id number] Univers 08:00:00 08:00:00 KASSANDRA chino [facility] 2022-05-15 2022-05-15 Outpatient R ANGELA, [facility] [id number] Univers 09:20:00 09:20:00 BENNETT lechuga [facility] 2022-05-11 2022-05-11 Outpatient R PUGH, [facility] [id number] Univers 09:30:00 09:30:00 KASSANDRA [facility] 2022-05-05 2022-05-05 Emergency X ERROL [facility] ERT [id number] Univers 12:26:00 16:11:00 KARON [facility] 2022-05-05 2022-05-05 Emergency [facility] 1.2.840.114 [id number] Univers 12:26:00 16:11:00 Karon LULU 350.1.13.10 i ty of [place] 4.2.7.2.686 [facility] [id number] [address] 2022-05-01 2022-05-01 Outpatient R PRASANNA VARGAS [facility] [id number] Univers 00:00:00 00:00:00 [facility] 2022-04-26 2022-04-26 Emergency X SINGER [facility] ERT [id number] Univers 08:30:00 09:59:00 ZION chino [facility] 2022-04-26 2022-04-[address] [facility] 1.2.628.345 [id number] Univers 08:30:00 09:59:00 Zion LAWSON 350.1.13.10 i ty of [place] 4.2.7.2.686 [facility] [id number] [address] 2022-04-25 2022-04-25 Emergency X GUTIERREZ, [facility] ERT [id number] Univers 18:23:00 21:55:00 KENNEDY ity [facility] 2022-04-25 2022-04-25 Emergency GutierrezDR[facility] 1.2.644.110 [id number] Univers 18:23:00 21:55:00 Cynvanesa LAW[place] 350.1.13.10 i ty of [place] 4.2.7.2.686 [place] [id number] [address] 2022-04-19 2022-04-19 Outpatient Farzana GREENE [facility] [id number] Univers 10:00:00 10:00:00 LIAN ity [facility] 2022-04-12 2022-04-12 Telephone [facility] 1.2.553.354 [id number] Univers 00:00:00 00:00:00 Meshify 350.1.13.10 it y of [facility] 4.2.7.2.686 [place] as TOÑO?BLEA [id number] [address] OFFICE [facility] 2022-04-11 2022-04-11 [address] [facility] 1.2.840.114 [id number] Univers 00:00:00 00:00:00 [facility] 350.1.13.10 ity of [place] 4.2.7.2.686 [place] as TOÑO?BLEA [id number] [address] OFFICE [facility] 2022-04-10 2022-04-10 [address] [facility] 1.2.134.627 [id number] Univers 00:00:00 00:00:00 Meshify 350.1.13.10 it y of [facility] 4.2.7.2.686 [place] as TOÑO?BLEA [id number] [address] OFFICE [facility] 2022-04-09 2022-04-09 [address] [facility] 1.2.840.114 [id number] Univers 09:30:00 09:30:00 Visit Meshify 350.1.13.10 it y of [place] 4.2.7.2.686 [place] as TOÑO?BLEA [id number] [address] OFFICE [facility] 2022-04-09 2022-04-09 Outpatient R LEXY [facility] [id number] Univers 09:30:00 09:21:44 KASSANDRA lechuga [facility] 2022-04-07 2022-04-07 Emergency X VIRGIEDR. [facility] ERT [id number] Univers 13:41:00 17:49:00 OLAMIDE ankush [facility] 2022-04-07 2022-04-07 Emergency DrejadenDR. [facility] 1.2.402.175 [id number] Univers 13:41:00 17:49:00 Olamide Laila LULU 350.1.13.10 ity of [place] 4.2.7.2.686 [facility] [id number] [address] 2022-04-04 2022-04-04 Tele[address] [facility] 1.2.783.257 [id number] Univers 00:00:00 00:00:00 Kassandra HEALTH 350.1.13.10 it y of [facility] 4.2.7.2.686 [place] as TOÑO?BLEA [id number] [address] MEDICAL OFFICE [facility] 2022-04-02 2022-04-02 Outpatient R LEXY [facility] [id number] Univers 10:30:00 10:30:00 KASSANDRA lechuga [facility] 2022-03-28 2022-03-28 Patient Doctor [facility] 1.2.840.114 [id number] Univers 00:00:00 00:00:00 Secure Msg Unassigned, HEALTH 350.1.13.10 ity of [place] 4.2.7.2.686 [place] as TOÑO?BLEA [id number] [address] MEDICAL OFFICE [facility] 2022-03-24 2022-03-24 Emergency X PERLA, [facility] ERT [id number] Univers 07:35:00 13:11:00 KELLIE lechuga [facility] 2022-03-24 2022-03-24 Emergency Per[facility] 1.2.596.389 [id number] Univers 07:35:00 13:11:00 Kellie LAWSON 350.1.13.10 ity of [facility] 4.2.7.2.686 [facility] [id number] [address] 2022-03-23 2022-03-23 Outpatient R LEXY [facility] [id number] Univers 10:30:00 10:30:00 KASSANDRA lechuga [facility] 2022-03-23 2022-03-23 [facility] 1.2.840.114 [id number] Univers 00:00:00 00:00:00 [facility] 350.1.13.10 ity of [place] 4.2.7.2.686 [place] as TOÑO?BLEA [id number] [address] OFFICE [facility] 2022-03-22 2022-03-22 Telephone [facility] 1.2.840.114 [id number] Univers 00:00:00 00:00:00 [facility] 350.1.13.10 ity of [place] 4.2.7.2.686 [place] as TOÑO?BLEA [id number] [address] 2022-03-22 2022-03-22 Refill [facility] 1.2.840.114 [id number] Univers 00:00:00 00:00:00 [facility] 350.1.13.10 ity of [place] 4.2.7.2.686 [place] as TOÑO?BLEA [id number] [address] 2022-03-21 2022-03-21 Telephone [facility] 1.2.840.114 [id number] Univers 00:00:00 00:00:00 [facility] 350.1.13.10 ity of [place] 4.2.7.2.686 [place] as TOÑO?BLEA [id number] [address] 2022-03-15 2022-03-15 Outpatient R ARJUN [facility] [id number] Univers 14:00:00 14:36:19 REJI fitzpatrick f [facility] 2022-03-15 2022-03-15 Office [facility] 1.2.840.114 [id number] Univers 14:00:00 14:36:19 Visit Reji [place] 350.1.13.10 ity of [facility] 4.2.7.2.[place] [id number] Ct alessandraaliyah TORRES 059 [facility] 2022-03-15 2022-03-15 Emergency X NAYANAKATALINAFRANDY [facility] ERT [id number] Univers 08:40:00 10:47:00 ANNA [facility] 2022-03-15 2022-03-15 Emergency Bry[facility] 1.2.840.114 [id number] Univers 08:40:00 10:47:00 Anna MARIANNA 350.1.13.10 i ty of [place] 4.2.7.2.686 [place] [id number] [address] 2022-03-14 2022-03-14 Outpatient PRASANNA LOOMIS [facility] [id number] Univers 10:30:00 10:30:00 [facility] 2022-03-11 2022-03-11 Emergency X [facility]ICEDR[facility] ERT [id number] Univers 09:22:00 12:15:00 SHINTA [facility] 2022-03-11 2022-03-11 Emergency FeliceDR[facility] 1.2.840.114 [id number] Univers 09:22:00 12:15:00 Angelica MAR[place] 350.1.13.10 i ty of [facility] 4.2.7.2.[place] [id number] [address] 2022-03-06 2022-03-06 Outpatient Farzana PUGH [facility] [id number] Univers 08:30:00 08:30:00 KASSANDRA [facility] 2022-03-02 2022-03-02 [address] [facility] 1.2.840.114 [id number] Univers 00:00:00 00:00:00 [facility] 350.1.13.10 ity of [place] 4.2.7.2.686 [place] as TOÑO?BLEA [id number] Ct whit [place] [address] [place] MEDICAL OFFICE [facility] 2022-02-27 2022-02-27 Outpatient Farzana PUGH [facility] [id number] Univers 09:30:00 09:49:42 KASSANDRA lechuga [facility] 2022-02-27 2022-02-27 Office Lex[facility] 1.2.840.114 [id number] Univers 09:30:00 09:49:42 Visit Kassandra BAILEY 350.1.13.10 it y of [facility] 4.2.7.2.686 [place] as TOÑO?BLEA [id number] Ct whit [place] [address] [place] MEDICAL OFFICE [facility] 2022-02-27 2022-02-27 Office Juan [facility] 1.2.840.114 [id number] Univers 08:00:00 09:12:17 Visit Vjiay BAILEY 350.1.13.10 it y of [facility] 4.2.7.2.686 [place] as TOÑO?BLEA [id number] Ct whit MINOR 044 [facility] OFFICE [facility] 2022-02-26 2022-02-26 Outpatient R [facility] [id number] Univers 11:30[facility]00 [facility]30[facility]-21 Emergency [facility] [id number] Univers 01:20:00 03:44:00 MAGGIE [facility] 2022-02-21 2022-02-21 Emergency [facility] 1.2.840.114 [id number] Univers 01:20:00 03:44:00 Maggie LAWSON 350.1.13.10 ity of [place] 4.2.7.2.686 [place] [facility] [id number] [facility] [address] 2022-02-19 2022-02-19 [facility] 1.2.840.114 [id number] Univers 00:00:00 00:00:00 Secure Msg Kendal Amaral HEALTH 350.1.13.10 ity of [place] 4.2.7.2.686 Martin as TOÑO?BLEA [id number] Ct whit [place] [address] MEDICAL OFFICE [facility] 2022-02-19 2022-02-19 Patient Robb [facility] 1.2.840.114 [id number] Univers 00:00:00 00:00:00 Secure Msg Kendal Amaral HEALTH 350.1.13.10 ity of [place] 4.2.7.2.686 [place] as TOÑO?BLEA [id number] Me whit [place] [address] MEDICAL OFFICE BUILDING 2022-02-19 2022-02-19 Patient Suzette [facility] [id number] [id number] Univers 00:00:00 00:00:00 Secure Msg Ade Chen [place] 350.1.13.10 ity of [facility] 4.2.7.2.686 [place] [id number] [facility] [address] 2022 2022 Emergency X [facility] ERT [id number] Univers 11:58:00 15:13:00 MAGGIE elchuga [facility] 2022 2022 Emergency [facility] 1.2.840.114 [id number] Univers 11:58:00 15:13:00 [facility] 350.1.13.10 ity [facility] 4.2.7.2.686 [place] [facility] [id number] [facility] [address] 2022-02-09 2022-02-09 Outpatient R BRANDON, [facility] [id number] Univers 09:00:00 09:00:00 CRICKET davis [facility] 2022-02-06 2022-02-06 Outpatient R JUAN [facility] [id number] Univers 10:00:00 10:00:00 VIJAY lechuga [facility] 2022-02-05 2022-02-05 Nurse Nurse, Filippo [facility] 1.2.840.114 [id number] Univers 09:45:00 10:05:00 Visit Ileana Medrano [facility] 350.1.13.10 ity of [place] 4.2.7.2.686 [place] as TOÑO?BLEA [id number] Ct whit [place] [address] MEDICAL OFFICE [facility] 2022-02-05 2022-02-05 Outpatient R OLIVER [facility] [id number] Univers 09:20:00 09:20:00 FLACO davis [facility] 2022-01-26 2022-01-26 Prasanna Gimenez [facility] 1.2.205.058 [id number] Univers 00:00:00 00:00:00 Management Jm LAWSON 350.1.13.10 ity of [place] [id number] [facility] 134 [facility] 2022-01-22 2022-01-22 Outpatient R JUAN, [facility] [id number] Univers 11:00:00 11:00:00 VIJAY itchino [facility] 2022-01-18 2022-01-18 Emergency X SUSANAVALENTIN, [facility] ERT [id number] Univers 05:17:00 10:25:00 BERNARDO [facility] 2022-01-18 2022-01-18 Emergency KennedyJayy W TRAUMA 1.2.840.11 4 [id number] Univers 05:17:00 10:25:00 Bernardo Levy [place]ORE[place] 350.1.13.10 [place] [id number] [facility] [address] 2022-01-15 2022-01-15 Emergency X [facility] ERT [id number] Univers 08:34:00 10:49:00 MAURA lechuga [facility] 2022-01-15 2022-01-15 Emergency Larry Perez R [facility] 1.2.840.1 14 [id number] Univers 08:34:00 10:49:00 Maura Samayoa 350.1.13.10 ity of [place] 4.2.7.2.686 [facility] [id number] [address] 2022-01-08 2022-01-08 Emergency X GABRIELA, [facility] ERT [id number] Univers 18:04:00 20:09:00 HUMBERTO chino [facility] 2022-01-08 2022-01-08 Emergency [facility] 1.2.840.114 [id number] Univers 18:04:00 20:09:00 Humberto LAWSON 350.1.13.10 i ty of [place].7.2.[place] [id number] [address] 2021-12-12 2021-12-12 Outpatient R DEYVI, [facility] [id number] Univers 13:30:00 13:40:21 TETO [facility] 2021-12-12 2021-12-12 Office Prasanna Vargas [facility] 1.2.840.114 [id number] Univers 13:30:00 13:40:21 Visit Teto Carnes 350.1.13.10 ity [facility] 4.2.7.2.[address] [facility] [id number] Ct dical NAL 134 [facility] 2021-12-12 2021-12-12 Outpatient R DEYVI [facility] [id number] Univers 13:30:00 13:40:21 [facility] 2021-12-12 2021-12-12 Outpatient R DEYVI [facility] [id number] Univers 13:30:00 13:40:21 [facility] 2021-12-11 2021-12-11 Outpatient R SUZETTE, [facility] [id number] Univers 16:15:00 16:15:00 [facility] 2021-12-05 2021-12-05 Outpatient R LYSSA, [facility] [id number] Univers 14:15:00 14:15:00 ROMULO [facility] 2021-11-28 2021-11-28 Emergency X ERROL, [facility] ERT [id number] Univers 08:49:00 11:02:00 KARON [facility] 2021-11-28 2021-11-28 Emergency Norton, [facility] 1.2.840.114 [id number] Univers 08:49:00 11:02:00 Karon LAWSON 350.1.13.10 i ty [facility] [place] [id number] [facility] [address] 2021-11-24 2021-11-24 Emergency X DEV, K [facility] ERT [id number] Univers 18:14:00 21:04:00 [facility] 2021-11-24 2021-11-24 Emergency Dev, K [facility] 1.2.840.114 [id number] Univers 18:14:00 21:04:00 Sharlene LAWSON 350.1.13.10 i ty of [place].2.7.2.[place] [id number] [facility] [address] 2021-11-24 2021-11-24 Telephone Brandon [facility] 1.2.840.114 [id number] Univers 00:00:00 00:00:00 Cricket Lopez [employer] 350.1.13.10 ity of [facility] 4.2.7.2.686 Martin as MATERNAL [id number] Med ical & CHILD 107 [facility] 2021-11-20 2021-11-20 Patient Robb [facility] 1.2.840.114 [id number] Univers 00:00:00 00:00:00 Secure Msg Edmonds [facility] 350.1.13.10 ity of [place] 4.2.7.2.686 [place] as TOÑO?BLEA [id number] Ct whit MINOR [address] MEDICAL OFFICE BUILDING 2021-11-19 2021-11-19 Letter JORDAN Santacruz 1.2.840.114 [id number] Univers 00:00:00 00:00:00 (Out) Leslie YAZMIN 350.1.13.10 it y of [facility] 4.2.7.2.686 [place] as [id number] [facility] [address] 2021-11-18 2021-11-18 Outpatient R OLIVER [facility] [id number] Univers 10:41:40 23:59:00 FLACO ity o f [facility] 2021-11-18 2021-11-[address] [facility] 1.2.462.335 [id number] Univers 10:41:40 23:59:00 Encounter Flaco HEALTH 350.1.13.10 ity of [place] 4.2.7.2.686 [place] as TOÑO?BLEA [id number] Ct whit [place] [address] MEDICAL OFFICE BUILDING 2021-11-18 2021-11-[address] [facility] 1.2.840.114 [id number] Univers 10:20:00 10:53:20 Care Flaco HEALTH 350.1.13.10 i ty of [place] 4.2.7.2.686 [place] as TOÑO?BLEA [id number] [facility] [address] MEDICAL OFFICE [facility] 2021-11-09 2021-11-09 Outpatient Farzana MIXON [facility] [id number] Univers 10:30:00 10:30:00 CELINA lechuga [facility] 2021-10-25 2021-10-25 Urgent Ileana Medrano [facility] .2.840.114 [id number] Univers 13:20:00 13:20:00 Care [facility] 350.1.13.10 ity of [place] 4.2.7.2.686 [place] as TOÑO?BLEA [id number] [address] OFFICE [facility] 2021-10-25 2021-10-25 Outpatient Farzana MEDRANO [facility] [id number] [facility] 13:20:00 12:47:59 ILEANA lechuga [facility] 2021-10-25 2021-10-25 Patient Juan [facility] 1.2.840.114 [id number] Univers 00:00:00 00:00:00 Secure Msg Vijay HEALTH 350.1.13.10 ity of [place] 4.2.7.2.686 [place] as TOÑO?BLEA [id number] [address] OFFICE [facility] 2021-10-25 2021-10-25 Telephone Juan [facility] 1.2.758.092 [id number] Univers 00:00:00 00:00:00 Vijay HEALTH 350.1.13.10 it y of [place] 4.2.7.2.686 [place] as TOÑO?BLEA [id number] [address] OFFICE [facility] 2021-10-25 2021-10-25 Telephone Rina [facility] 1.2.840.114 [id number] Univers 00:00:00 00:00:00 Ang Db HEALTH 350.1.13.10 it y of [facility]gent [facility] [place] 4.2.7.2.686 [place] TOÑO?BLEA [id number] [address] OFFICE [facility] 2021-10-25 2021-10-25 Telephone Nurse, Filippo [facility] 1.2.840.114 [id number] Univers 00:00:00 00:00:00 Db Urgent HEALTH 350.1.13.10 ity of [facility] 4.2.7.2.686 [place] as TOÑO?BLEA [phone] [address] OFFICE [facility] 2021-10-24 2021-10-24 Outpatient Farzana OMALLEY [facility] [id number] Univers 10:15:00 10:15:00 [facility] 2021-10-24 2021-10-24 Outpatient Farzana OMALLEY [facility] [id number] Univers 10:15:00 10:15:00 [facility] 2021-10-11 2021-10-11 Outpatient Farzana OMALLEY [facility] [id number] Univers 09:30:00 09:30:00 ROMULO [facility] 2021-10-10 2021-10-10 Outpatient Farzana VARGAS [facility] [id number] Univers 13:30:00 13:30:00 ity [facility] 2021-10-10 2021-10-10 Outpatient R ALICIA PRASANNA [facility] [id number] Univers 13:30:00 13:30:00 [facility] 2021-10-10 2021-10-10 Outpatient R ALICIA [facility] [id number] Univers 13:30:00 13:30:00 ity [facility] 2021-10-10 2021-10-10 Outpatient R ALICIA [facility] [id number] Univers 13:30:00 13:30:00 ity [facility] 2021-10-10 2021-10-10 Outpatient R ALICIA [facility] [id number] Univers 13:30:00 13:30:00 [facility] 2021-10-10 2021-10-10 Outpatient R ALICIA [facility] [id number] Univers 13:30:00 13:30:00 ity [facility] 2021-10-10 2021-10-10 Outpatient R PARSANNA VARGAS [facility] [id number] Univers 13:30:00 13:30:00 ity of [facility] 2021-10-05 2021-10-05 Patient Robb [facility] 1.2.840.114 [id number] Univers 00:00:00 00:00:00 Secure g Kendal Amaral HEALTH 350.1.13.10 ity of [place] 4.2.7.2.686 [place] TOÑO?BLEA [id number] [address] MEDICAL OFFICE [facility] 2021-10-05 2021-10-05 Patient Robb [facility] 1.2.840.114 [id number] Univers 00:00:00 00:00:00 Secure Mslaila Amaral HEALTH 350.1.13.10 ity of [place] 4.2.7.2.686 [place] TOÑO?BLEA [id number] [address] OFFICE [facility] 2021-10-04 2021-10-04 Pre Visit HILARIO Rodriguez 1.2.892.397 [id number] Univers 00:00:00 00:00:00 Outreach Melia OMER 350.1.13.10 [place] [phone] [facility] [address] 2021-09-28 2021-09-28 Office [facility] 1.2.840.114 [id number] Univers 13:30:00 13:45:00 Visit Celina SAM 350.1.13.10 ity of [place].2.[place] [id number] [facility] [address] [place] 2021-09-28 2021-09-28 Outpatient R APURVA [facility] [id number] Univers 13:30:00 13:30:00 CELINA lechuga [facility] 2021-09-28 2021-09-28 Outpatient R [facility] [id number] Univers 13:30:00 13:30:00 CELINA lechuga [facility] 2021-09-28 2021-09-28 Patient [facility] 1.2.840.114 [id number] Univers 00:00:00 00:00:00 Secure Msg Celina SAM 350.1.13.10 ity of [facility] 4.[place].7.2.[place] [id number] [address] 2021-09-27 2021-09-27 Outpatient R DEYVI, [facility] [id number] Univers 14:00:00 14:00:00 TETO [facility] 2021-09-27 2021-09-27 Outpatient R [facility] [id number] Univers 09:30:00 09:30:00 [facility] 2021-09-27 2021-09-27 Outpatient R [facility] [id number] Univers 09:30:00 09:30:00 [facility] 2021-09-27 2021-09-27 Outpatient R [facility] [id number] Univers 09:30:00 09:30:00 [facility] 2021-09-26 2021-09-26 Outpatient R AKINEVENSMALIK, [facility] [id number] Univers 10:45:00 10:45:00 CRICKETEMILIO lechuga o [facility] 2021-09-26 2021-09-26 Outpatient R AKINSIPE, [facility] [id number] Univers 10:45:00 10:45:00 CRICKET maradiagay o [facility] 2021-09-26 2021-09-26 [facility] 1.2.840.114 [id number] Univers 00:00:00 00:00:00 Secure Msg ShopVisible 350.1.13.10 ity of [place] 4.2.7.2.686 [place] as TOÑO?BLEA [phone] Ct whit [place] [address] [place] [address] MEDICAL OFFICE BUILDING 2021-09-26 2021-09-26 Patient Juan [facility] 1.2.840.114 [id number] Univers 00:00:00 00:00:00 Secure Msg Vijay HEALTH 350.1.13.10 ity [facility] 4.2.7.2.686 [place] as TOÑO?BLEA [id number] Ct whit [place] 044 [facility] OFFICE [facility] 2021-09-25 2021-09-25 Urgent Flaco Boyd [facility] 1.2.840. 114 [id number] Univers 10:20:00 11:10:42 Care Mitchell [facility] 350.1.13.10 ity of [place] 4.2.7.2.686 [place] as TOÑO?BLEA [id number] [facility] Sciencesaliyah [facility] 370 [facility] 2021-09-25 2021-09-25 Outpatient R [facility] [id number] Univers 10:20:00 11:10:42 [facility] 2021-09-25 2021-09-[address] [facility] [id number] Univers 10:20:00 10:20:00 [facility] o [facility] 2021-09-25 2021-09-25 Outpatient R PRASANNA VARGAS [facility] [id number] Univers 10:00:00 10:00:00 ity of [facility] 2021-09-25 2021-09-[address] [facility] 1..840.114 [id number] Univers 00:00:00 00:00:00 [facility] 350.1.13.10 i ty of [place] 4.2.7.2.686 [place] as TOÑO?BLEA [id number] [facility] 370 [facility] 2021-09-25 2021-09-25 Patient Prasanna Vargas [facility] 1.2.592.971 [id number] Univers 00:00:00 00:00:00 Secure Msg Cam [place] 350.1.13.10 ity of [place].2.7.2.[place] [phone] Ct whit [facility] 134 [facility] 2021-09-25 2021-09-25 Telephone [facility] 1.2.840.114 [id number] Univers 00:00:00 00:00:00 Cricket C [employer] 350.1.13.10 ity of [facility] 4.2.7.2.686 [place] as MATERNAL [phone] Med ical & CHILD [address] [place] [address] 2021-09-25 2021-09-25 Telephone Apurva [facility] 1.2.241.497 [id number] Univers 00:00:00 00:00:00 Celina SAM 350.1.13.10 ity of [facility] 4.2.7.2.686 [place] [id number] [address] 2021-09-15 2021-09-15 Patient [facility] 1.2.840.114 [id number] Univers 00:00:00 00:00:00 Secure Msg Kendal Munir HEALTH 350.1.13.10 ity of [place] 4.2.7.2.686 [place] TOÑO?BLEA [id number] [address] MEDICAL OFFICE [facility] 2021-09-15 2021-09-15 Patient Robb [facility] 1.2.840.114 [id number] Univers 00:00:00 00:00:00 Secure Msg Kendal Amaral HEALTH 350.1.13.10 ity of [place] 4.2.7.2.686 [place] as TOÑO?BLEA [id number] [address] OFFICE [facility] 2021-09-15 2021-09-15 Patient Robb [facility] 1.2.840.114 [id number] Univers 00:00:00 00:00:00 Secure Msg Kendal Amaral HEALTH 350.1.13.10 ity of [place] 4.2.7.2.686 [place] TOÑO?BLEA [id number] [address] OFFICE [facility] 2021-09-14 2021-09-14 Patient Juan [facility] 1.2.840.114 [id number] Univers 00:00:00 00:00:00 Secure Msg Vijay HEALTH 350.1.13.10 ity of [place] 4.2.7.2.686 [place] as TOÑO?BLEA [id number] [address] OFFICE [facility] 2021-09-12 2021-09-12 Outpatient R [facility]UR[facility] [id number] Univers 10:30:00 10:30:00 CELINA lechuga of [facility] 2021-09-12 2021-09-12 Outpatient R APURVA [facility] [id number] Univers 10:30:00 10:30:00 CELINA ity of [facility] 2021-09-12 2021-09-12 Patient Meet [facility] 1.2.840.114 [id number] Univers 00:00:00 00:00:00 Secure Msg Daniel MULTISPEC 350.1.13.10 ity of [place]2.7.2.[place] [phone] [facility] AND [address] [facility] 2021-09-12 2021-09-12 Orders Doctor JORDAN 1.2.840.114 [id number] Univers 00:00:00 00:00:00 Only Unassigned, YAZMIN 350.1.13.10 [facility] 4.2.7.2.686 [place] [phone] [place] [address] [place] 2021-09-12 2021-09-12 Patient Juan [facility] 1.2.840.114 [id number] Univers 00:00:00 00:00:00 Secure Msg Vijay HEALTH 350.1.13.10 ity of [place] 4.2.7.2.686 [place] as TOÑO?BLEA [id number] [address] MEDICAL OFFICE BUILDING 2021-09-05 2021-09-05 Patient Juan [facility] 1.2.840.114 [id number] Univers 00:00:00 00:00:00 Secure Msg Vijay HEALTH 350.1.13.10 ity of [place] 4.2.7.2.686 [place] as TOÑO?BLEA [id number] [address] MEDICAL OFFICE BUILDING 2021-09-04 2021-09-04 Patient Juan [facility] 1.2.840.114 [id number] Univers 00:00:00 00:00:00 Secure Msg Vijay HEALTH 350.1.13.10 ity of [place] 4.2.7.2.686 [place] as TOÑO?BLEA [id number] [address] MEDICAL OFFICE BUILDING 2021-08-25 2021-08-25 Telephone Vikki [facility] 1.2.840.114 [id number] Univers 00:00:00 00:00:00 Dania L HEALTH 350.1.13.10 it y of [place] 4.2.7.2.686 [place] as TOÑO?BLEA [id number] Ct whit [place] [address] MEDICAL OFFICE [facility] 2021-08-25 2021-08-25 Patient Juan [facility] 1.2.840.114 [id number] Univers 00:00:00 00:00:00 Secure Msg Vijay HEALTH 350.1.13.10 ity of [place] 4.2.7.2.686 [place] as TOÑO?BLEA [id number] Ct whit [place] 044 [facility] OFFICE [facility] 2021-08-24 2021-08-24 Telephone Juan [facility] 1.2.116.309 [id number] Univers 00:00:00 00:00:00 Vijay HEALTH 350.1.13.10 it y of [place] 4.2.7.2.686 [place] as TOÑO?BLEA [phone] Ct whit [place] [address] [place] [address] OFFICE [facility] 2021-08-24 2021-08-24 Patient Juan [facility] 1.2.840.114 [id number] Univers 00:00:00 00:00:00 Secure Msg Vijay HEALTH 350.1.13.10 ity of [place] 4.2.7.2.686 [place] as TOÑO?BLEA [id number] Ct whit [place] [address] [place] [address] OFFICE [facility] 2021-08-23 2021-08-23 Patient Juan [facility] 1.2.840.114 [id number] Univers 00:00:00 00:00:00 Secure Msg Vijay HEALTH 350.1.13.10 ity of [place] 4.2.7.2.686 [place] as TOÑO?BLEA [id number] Ct whit [place] [address] [place] [address] OFFICE [facility] 2021-08-23 2021-08-23 Telephone Juan [facility] 1.2.738.797 [id number] Univers 00:00:00 00:00:00 Vijay HEALTH 350.1.13.10 it y of [place] 4.2.7.2.686 [place] TOÑO?BLEA [phone] Me whit [place] [address] [place] [address] OFFICE [facility] 2021-08-22 2021-08-22 [address] [facility] 1.2.628.574 [id number] Univers 00:00:00 00:00:00 Vijay HEALTH 350.1.13.10 it y of [place] 4.2.7.2.686 [place] as TOÑO?BLEA [phone] Ct whit MIN[address] OFFICE [facility] 2021-08-22 2021-08-22 Patient Jaja [facility] 1.2.840.114 [id number] Univers 00:00:00 00:00:00 Secure Msg Hallie HEALTH 350.1.13.10 ity of [place] 4.2.7.2.686 [place] as TOÑO?BLEA [id number] [address] OFFICE [facility] 2021-08-18 2021-08-18 Telephone [facility] 1.2.408.336 [id number] Univers 00:00:00 00:00:00 Vijay HEALTH 350.1.13.10 it y of [place] 4.2.7.2.686 [place] as TOÑO?BLEA [id number] [address] OFFICE [facility] 2021-08-17 2021-08-17 Outpatient Farzana MIXON [facility] [id number] Univers 09:00:00 09:00:00 CELINA lechuga [facility] 2021-08-17 2021-08-17 Outpatient Farzana MIXON [facility] [id number] Univers 09:00:00 09:00:00 CELINA lechuga [facility] 2021-08-16 2021-08-16 Patient [facility] 1.2.840.114 [id number] Univers 00:00:00 00:00:00 Secure Msg Vijay HEALTH 350.1.13.10 [facility] 4.2.7.2.686 [place] TOÑO?BLEA [id number] [address] OFFICE [facility] 2021-08-15 2021-08-15 Office [facility] 1.2.840.114 [id number] Univers 15:30:00 16:16:42 Visit [facility] 350.1.13.10 it y of [place] 4.2.7.2.686 [place] as TOÑO?BLEA [id number] Ct whit [address] MEDICAL OFFICE BUILDING 2021-08-15 2021-08-15 Outpatient Farzana KIM [facility] [id number] Univers 15:30:00 16:16:42 [facility] 2021-08-15 2021-08-15 Outpatient Farzana KIM [facility] [id number] Univers 15:30:00 15:30:00 [facility] 2021-08-15 2021-08-15 Outpatient Farzana KIM [facility] [id number] Univers 15:30:00 15:30:00 [facility] 2021-08-15 2021-08-15 Outpatient Farzana [facility] [id number] Univers 15:30:00 15:30:00 [facility] 2021-08-15 2021-08-15 Emergency X [facility] ERT [id number] Univers 09:27:00 12:26:00 MAURA hirenchino [facility] 2021-08-15 2021-08-15 [facility] 1.2.665.466 [id number] Univers 09:27:00 12:26:00 Maura LAWSON 350.1.13.10 ity [facility] 4.2.7.2.686 [facility] [id number] [address] 2021-08-15 2021-08-15 Emergency Aj [facility] ERT [id number] Univers 09:27:00 12:26:00 MAURA lechuga [facility] 2021-08-14 2021-08-14 Outpatient Farzana MARTINEZ [facility] [id number] Univers 13:25:00 23:59:00 VIJAY lechuga [facility] 2021-08-14 2021-08-14 Outpatient Farzana MARTINEZ [facility] [id number] Univers 13:25:00 23:59:00 VIJAY lechuga [facility] 2021-08-14 2021-08-14 Outpatient Farzana MARTINEZ [facility] [id number] Univers 13:25:00 13:25:00 VIJAY lechuga [facility] 2021-08-14 2021-08-14 Outpatient R JUAN [facility] [id number] Univers 12:19:07 13:24:00 VIJAY lechuga [facility] 2021-08-14 2021-08-14 Outpatient R JUAN [facility] [id number] Univers 12:19:07 13:24:00 VIJAY lechuga [facility] 2021-08-14 2021-08-14 [facility], [facility] [id number] Univers 12:30:00 13:01:24 Visit Vijay Martinez [id number] ity of [place] [id number] Martin as TOÑO?BLEA [id number] [facility] [address] [facility] [place] OFFICE [facility] 2021-08-14 2021-08-14 Athletic Trainer Lab, [facility] 1.2.840.1 [id number] Univers 12:30:00 12:45:00 Visit Vijay Martinez [id number] ity of [place] [id number] Martin as TOÑO?BLEA [id number] [facility] [address] [facility] [place] OFFICE [facility] 2021-08-14 2021-08-14 Office Juan [facility] [id number] Univers 11:30:00 12:31:12 Visit Vijay BAILEY [id number] it y of [place] [id number] Martin as TOÑO?BLEA [id number] [facility] [address] [facility] [place] OFFICE [facility] 2021-08-14 2021-08-14 Outpatient R JUAN [facility] [id number] Univers 11:30:00 12:31:12 VIJAY lechuga [facility] 2021-08-14 2021-08-14 Patient Juan [facility] [id number] Univers 00:00:00 00:00:00 Secure Msg Vijay HEALTH [id number] ity of [place] [id number] Martin as TOÑO?BLEA [id number] Me whit [place] [address] [place] MEDICAL OFFICE [facility] 2021-08-09 2021-08-09 Outpatient R JUDY [facility] [id number] Univers 14:45:00 14:45:00 ADÁN ankush [facility] 2021-08-09 2021-08-09 [facility] [id number] Univers 00:00:00 00:00:[address] [facility] 350.1.13.10 it y of [place] 4.2.7.2.686 Martin as TOÑO?BLEA [phone] Ct whit [place] 044 [facility] 2021-08-08 2021-08-08 Outpatient R JUAN [facility] [id number] Univers 11:30:00 23:59:00 VIJAY ankush [facility] 2021-08-08 2021-08-08 [facility] 1.2.840.114 [id number] Univers 11:30:00 23:59:00 Encounter Vijay [facility] 350.1.13.10 ity [facility] 4.2.7.2.686 [place] as TOÑO?BLEA [phone] Ct alessandraaliyah [place] 808 [facility] 2021-08-08 2021-08-08 Outpatient R JUAN [facility] [id number] Univers 11:15:00 11:15:00 VIJAY hirenchino [facility] 2021-08-08 2021-08-08 Outpatient R JUAN [facility] [id number] Univers 11:00:00 11:00:00 VIJAY hirenchino [facility] 2021-08-08 2021-08-08 Patient Doctor JORDAN 1.2.840.114 [id number] Univers 00:00:00 00:00:00 Secure Msg Unassigned, YAZMIN 350.1.13.10 ity of [facility] 4.2.7.2.686 [place] as [phone] [address] 2021-08-07 2021-08-07 Office [facility] 1.2.840.114 [id number] Univers 09:30:00 10:23:21 Visit Vijay HEALTH 350.1.13.10 it y of [place] 4.2.7.2.686 [place] as TOÑO?BLEA [id number] Ct whit MIN[address] OFFICE [facility] 2021-08-07 2021-08-07 Outpatient R JUAN [facility] [id number] Univers 09:30:00 10:23:21 VIJAY lechuga [facility] 2021-08-07 2021-08-07 Outpatient R JUAN [facility] [id number] Univers 09:30:00 09:30:00 VIJAY lechuga [facility] 2021-08-07 2021-08-07 Patient Juan [facility] 1.2.840.114 [id number] Univers 00:00:00 00:00:00 Secure Msg Vijay HEALTH 350.1.13.10 ity [facility] 4.2.7.2.686 [place] TOÑO?BLEA [id number] [address] OFFICE [facility] 2021-08-07 2021-08-07 Patient Juan [facility] 1.2.840.114 [id number] Univers 00:00:00 00:00:00 Secure Msg Vijay HEALTH 350.1.13.10 ity of [place] 4.2.7.2.686 [place] as TOÑO?BLEA [id number] [facility] Sciencesaliyah [address] 2021-08-07 2021-08-07 Patient Apurva [facility] 1.2.840.114 [id number] Univers 00:00:00 00:00:00 Secure Msg Celina A FLACO 350.1.13.10 ity of [place].2.686 [place] [id number] [address] 2021-08-04 2021-08-04 Outpatient R SHADIA [facility] [id number] Univers 10:00:00 10:00:00 PETRA ity [facility] 2021-08-04 2021-08-04 Patient [facility] 1.2.840.114 [id number] Univers 00:00:00 00:00:00 Secure Msg Vijay HEALTH 350.1.13.10 ity of [place] 4.2.7.2.686 Martin as TOÑO?BLEA [phone] Ct alessandra[address] MEDICAL OFFICE BUILDING 2021-08-03 2021-08-03 Office SOURAV Diaz 1.2.840.114 [id number] Univers 11:00:00 12:48:43 Visit Jayy Dowling 350.1.13.10 it y of [facility] 4.2.7.2.686 [place] as BANK [phone] [facility]. [address] 2021-08-03 2021-08-03 Outpatient R [facility] [id number] Univers 11:00:00 12:48:43 JAYY lechuga [facility] 2021-08-03 2021-08-03 Outpatient R EMILY [facility] [id number] Univers 11:00:00 11:00:00 JAYY lechuga [facility] 2021-08-03 2021-08-03 Patient Apurva [facility] 1.2.840.114 [id number] Univers 00:00:00 00:00:00 Secure Msg Celina SAM 350.1.13.10 ity of [facility] 4.2.7.2.686 [place] [phone] [address] 2021-08-02 2021-08-02 Telephone Juan [facility] 1.2.656.670 [id number] Univers 00:00:00 00:00:00 [facility] 350.1.13.10 it y of [place] 4.2.7.2.686 [place] as TOÑO?BLEA [id number] Ct alessandra[address] MEDICAL OFFICE [facility] 2021-07-21 2021-07-21 Outpatient R DARRION WYATT [facility] [id number] Univers 08:00:00 08:52:53 DARRION WYATT itchino [facility] 2021-07-17 2021-07-17 Outpatient R JUAN [facility] [id number] Univers 11:30:00 11:30:00 VIJAY lechuga [facility] 2021-06-19 2021-06-19 Telephone Juan [facility] 1.2.556.202 [id number] Univers 00:00:00 00:00:00 Vijay HEALTH 350.1.13.10 it y of [place] 4.2.7.2.686 [place] TOÑO?BLEA [phone] [address] MEDICAL OFFICE [facility] 2021-06-09 2021-06-09 Telephone [facility] 1.2.396.453 [id number] Univers 00:00:00 00:00:00 Qiakarmaraheel [place] 350.1.13.10 ity of [facility] 4.2.7.2.[place] [id number] [facility] 059 [facility] 2021-06-06 2021-06-06 Outpatient R DEYVI [facility] [id number] Univers 11:15:00 11:15:00 TETO [facility] 2021-06-06 2021-06-06 Outpatient R DEYVI [facility] [id number] Univers 11:15:00 11:15:00 [facility] 2021-06-02 2021-06-02 Outpatient R CRISTIN[facility]LECT [facility] [id number] Univers 15:45:00 15:45:00 WONDIFUL itchino o f [facility] 2021-05-31 2021-05-31 Outpatient R [facility] [id number] Univers 10:00:00 10:46:31 VIJAY chino [facility] 2021-05-31 2021-05-31 Office [facility] 1.2.840.114 [id number] Univers 10:00:00 10:46:31 Visit Vijay [facility] 350.1.13.10 it y of [place] 4.2.7.2.686 [place] TOÑO?BLEA [phone] [address] OFFICE [facility] 2021-05-31 2021-05-31 Outpatient R [facility] [id number] Univers 10:00:00 10:46:31 VIJAY chino [facility] 2021-05-31 2021-05-31 Orders Doctor ORTEGA 1.2.840.114 [id number] Univers 00:00:00 00:00:00 Only Unassigned, YAZMIN 350.1.13.10 ity of [place] [facility] 4.2.7.2.686 [place] as [phone] [address] 2021-05-26 2021-05-26 Telephone Yaneli [facility] 1.2.332.467 [id number] Univers 00:00:00 00:00:00 Skylar A HEALTH 350.1.13.10 i ty of [facility] 4.2.7.2.686 [place] as TOÑO?BLEA [id number] [facility] [address] [place] MEDICAL OFFICE [facility] 2021-05-26 2021-05-26 Patient Prasanna Vargas [facility] 1.2.572.687 [id number] Univers 00:00:00 00:00:00 Secure Msg Cam [facility] 350.1.13.10 ity of [place]2.[place] [id number] [facility] 134 [facility] 2021-05-25 2021-05-25 Telemedici YaneliDR. [facility]AN [facility] 1.2.840.114 [id number] Univers 14:00:00 14:30:00 ne Visit Skylar Cannon HEALTH 350.1.13.10 ity of [place] 4.2.7.2.686 [place] as TOÑO?BLEA [phone] [address] 2021-05-25 2021-05-25 Outpatient R YANELISELECT [facility] [id number] Univers 14:00:00 14:00:00 SKYLAR hirenchino [facility] 2021-05-25 2021-05-25 Outpatient R YANELISELECT [facility] [id number] Univers 14:00:00 14:00:00 SKYLAR ity [facility] 2021-05-24 2021-05-24 Tele[address] [facility] 1.2.270.576 [id number] Univers 00:00:00 00:00:00 Sendil Cuate [place] 350.1.13.10 ity of [place].2.[place] [id number] [facility] 059 [facility] 2021-05-23 2021-05-23 Outpatient R [facility] [id number] Univers 10:00:00 10:00:00 ity of [facility] 2021-05-23 2021-05-23 Outpatient R [facility] [id number] Univers 10:00:00 10:00:00 ity [facility] 2021-05-16 2021-05-16 Outpatient R DEYVI, [facility] [id number] Univers 09:00:00 09:00:00 TETO ity [facility] 2021-05-12 2021-05-12 Orders Doctor JORDAN 1.2.840.114 [id number] Univers 00:00:00 00:00:00 Only Unassigned, YAZMIN 350.1.13.10 ity of [facility] 4.2.7.2.686 [place] as [phone] [address] 2021-05-10 2021-05-10 Outpatient R CRISTINASELECT [facility] [id number] Univers 13:00:00 13:00:00 WONDIFUL ity o f [facility] 2021-05-10 2021-05-10 Outpatient R CRISTINASELECT [facility] [id number] Univers 13:00:00 13:00:00 WONDIFUL ity o f [facility] 2021-05-09 2021-05-09 Telephone Prasanna Vargas [facility] 1.2.840.114 [id number] Univers 00:00:00 00:00:00 Cam LULU 350.1.13.10 i ty of [place].2.7.2.[place] [id number] Ct dical NAL 134 [facility] 2021-05-09 2021-05-09 Patient [facility] 1.2.840.114 [id number] Univers 00:00:00 00:00:00 Secure Msg Rad LAWSON 350.1.13.10 ity of [facility] 4.2.7.2.[place] [id number] Ct dical NAL 059 [facility] 2021-05-08 2021-05-08 Outpatient R YASMEENSELECT [facility]ICAL [facility] [id number] Univers 16:00:00 16:00:00 JE lechuga [facility] 2021-05-08 2021-05-08 Outpatient R YASMEEN [facility] [id number] Univers 16:00:00 16:00:00 JE lechuga [facility] 2021-05-08 2021-05-08 Patient [facility] 1.2.840.114 [id number] Univers 00:00:00 00:00:00 Secure Msg Rad LAW[place] 350.1.13.10 ity of [facility] [place].2.[place] [phone] Ct dical NAL 059 [facility] 2021-05-08 2021-05-08 Patient [facility] 1.2.840.114 [id number] Univers 00:00:00 00:00:00 Secure Msg Rad [place] 350.1.13.10 ity of [facility] [place].2.[place] [phone] Ct dical NAL 059 [facility] 2021-05-03 2021-05-03 Outpatient R [facility] [id number] Univers 11:15:36 23:59:00 REJI lechuga o f [facility] 2021-05-03 2021-05-03 [facility] 1.2.840.114 [id number] Univers 11:15:36 23:59:00 Encounter Reji [place] 350.1.13.10 ity of [facility] [place] [id number] Ct dical NAL 846 [facility] 2021-05-03 2021-05-03 Telephone Crist[facility]DR[facility] 1.2.840.114 [id number] Univers 00:00:00 00:00:00 Wondiful A HEALTH 350.1.13.10 ity of [facility] 4.2.7.2.686 [place] as TOÑO?BLEA [id number] Ct dical KNEY 044 [facility] OFFICE [facility] 2021-05-02 2021-05-02 [address] [facility] 1.2.563.752 [id number] Univers 00:00:00 00:00:00 Rad [place] 350.1.13.10 ity of [place] 4.2.7.2.[place] [id number] [place] 134709 [facility] 2021-05-02 2021-05-02 Patient Cristina [facility] 1.2.840.114 [id number] Univers 00:00:00 00:00:00 Secure Msg Wondiful A HEALTH 350.1.13.10 ity of [facility] 4.2.7.2.686 [place] as TOÑO?BLEA [phone] [address] OFFICE [facility] 2021-05-02 2021-05-02 Telephone Cristina [facility] 1.2.840.114 [id number] Univers 00:00:00 00:00:00 Wondiful A HEALTH 350.1.13.10 ity of [facility] 4.2.7.2.686 [place] TOÑO?BLEA [id number] [address] OFFICE [facility] 2021-05-02 2021-05-02 Patient Ponce [facility] 1.2.840.114 [id number] Univers 00:00:00 00:00:00 Secure Msg Rad [place] 350.1.13.10 ity of [facility] [place] [id number] [address] 2021-04-27 2021-04-27 Emergency X [facility] ERT [id number] Univers 14:24:00 15:49:00 MAGGIE ity of [facility] 2021-04-27 2021-04-27 Emergency Al[facility]DR[facility] 1.2.840.114 [id number] Univers 14:24:00 15:49:00 Maggie LAW[place] 350.1.13.10 ity of [facility] [place] [id number] [address] 2021-04-27 2021-04-27 Laboratory Only, Ang Db Test [facility] 1.2.8 40.114 [id number] Univers 11:15:00 11:30:00 Only Unknown, Attending HEALTH 350.1.13.10 ity of Ebrahim, Rania [place] 4.2.7.2.686 [place] TOÑO?BLEA [phone] Ct dicaliyah [place] 370 [facility] OFFICE [facility] 2021-04-27 2021-04-27 Outpatient R SIL [facility] [id number] Univers 11:15:00 11:15:00 RANIA ity of [facility] 2021-04-27 2021-04-27 Orders Doctor JORDAN 1.2.840.114 [id number] Univers 00:00:00 00:00:00 Only Unassigned, YAZMIN 350.1.13.10 ity of [place] [facility] 4.2.7.2.686 [place] as [phone] [address] 2021-04-20 2021-04-20 Outpatient R JUSTINE [facility] [id number] Univers 15:00:00 15:00:00 SCOTT ity of [facility] 2021-04-13 2021-04-13 Patient Cristina [facility] 1.2.840.114 [id number] Univers 00:00:00 00:00:00 Secure Msg Wondiful A HEALTH 350.1.13.10 ity of [place] 4.2.7.2.686 [place] as TOÑO?BLEA [phone] Ct dicaliyah MINOREY 044 [facility] 2021-04-12 2021-04-12 Telephone Cristina [facility] 1.2.840.114 [id number] Univers 00:00:00 00:00:00 Wondiful A HEALTH 350.1.13.10 ity of [place] 4.2.7.2.686 [place] as TOÑO?BLEA [phone] Ct dicaliyah MINOREY 044 [facility] OFFICE [facility] 2021-03-27 2021-03-27 Telephone Prasanna Vargas [facility] 1.2.840.114 [id number] Univers 00:00:00 00:00:00 Cam [facility] 350.1.13.10 i ty of [place]2.7.2.[place] [id number] Ct dicaliyah TORRES 134 [facility] 2021-03-23 2021-03-23 Outpatient R KAVYA [facility] [id number] Univers 13:30:00 13:30:00 CHILVANA ity o f [facility] 2021-03-23 2021-03-23 Outpatient R KAVYA [facility] [id number] Univers 13:30:00 13:30:00 CHILVANA ity o f [facility] 2021-03-22 2021-03-22 Outpatient R NEHEMIAH MEEKSNCEz [facility] [id number] Univers 09:20:00 09:20:00 ATANASOVNEHEMIAHHIL ity [facility] 2021-03-22 2021-03-22 [facility] [id number] Univers 09:20:00 09:20:00 [facility] 2021-03-20 2021-03-20 Outpatient R CRISTINA [facility] [id number] Univers 00:00:00 00:00:00 WONDIFUL ity o [facility] 2021-03-18 2021-03-18 Donaldo [facility] 1.2.840.114 [id number] Univers 00:00:00 00:00:00 Management Wondiful A HEALTH 350.1.13.10 ity of [place] 4.2.7.2.686 [place] as TOÑO?BLEA [phone] [facility] [address] [place] MEDICAL OFFICE [facility] 2021-03-16 2021-03-16 Athletic Trainer Lab, Ang - [facility] 1.2.840.1 14 [id number] Univers 11:16:07 11:31:07 Visit Claudette Evans A HEALTH 350.1.13.1 0 ity of [place] 4.2.7.2.686 [place] as TOÑO?BLEA [id number] [facility] [address] [place] MEDICAL OFFICE [facility] 2021-03-16 2021-03-16 Outpatient R CRISTINA [facility] [id number] Univers 11:30:00 11:30:00 WONDIFUL ity o f [facility] 2021-03-16 2021-03-16 Outpatient Farzana EVANS [facility] [id number] Univers 11:00:00 11:14:45 WONDIFUL ity o f [facility] 2021-03-16 2021-03-16 Office [place] [facility] 1.2.840.114 [id number] Univers 10:00:58 11:14:45 Visit Wondiful A HEALTH 350.1.13.10 ity of [place] 4.2.7.2.686 [place] as TOÑO?BLEA [id number] Ct whit [address] MEDICAL OFFICE [facility] 2021-03-16 2021-03-16 Patient Crist[facility]DR[facility] 1.2.840.114 [id number] Univers 00:00:00 00:00:00 Secure Msg Wondiful A HEALTH 350.1.13.10 ity of [place] 4.2.7.2.686 [place] as TOÑO?BLEA [id number] [address] OFFICE [facility] 2021-03-02 2021-03-02 Outpatient R CRISTINASELECT [facility]ICAL [facility] [id number] Univers 16:15:00 16:15:00 WONDIFUL ity o f [facility] 2021-02-28 2021-02-28 Outpatient R MITCHELLSELECT MEDICAL [facility] [id number] Univers 18:30:00 18:30:00 ILEANA itchino [facility] 2021-02-28 2021-02-28 Telephone [facility] 1.2.840.114 [id number] Univers 00:00:00 00:00:00 Wondiful A Health 350.1.13.10 ity of [place] 4.2.7.2.686 [place] as Toño?Blea [id number] [address] 2021-02-27 2021-02-27 Outpatient R STEPHANYSELECT [facility]ICAL [facility] [id number] Univers 09:00:00 09:00:00 AMELIA itchino [facility] 2021-02-23 2021-02-23 Telephone [place] [facility] 1..840.114 [id number] Univers 00:00:00 00:00:00 Wondiful A Health 350.1.13.10 ity of [place] 4.2.7.2.686 [place] as Toño?Blea [phone] Ct whit [place] [address] [place] Medical Office Building 2021-02-10 2021-02-10 Emergency Kaycee Méndez [facility] 1.2.840.114 [id number] Univers 18:12:00 23:39:00 Sharlene [place] 350.1.13.10 i ty of [place] 4.2.7.2.686 [place] [id number] [facility] [address] [place] 2021-02-09 2021-02-09 Hospital [facility] 1.2.926.324 [id number] Univers 13:40:00 23:59:00 Encounter Wondiful A Health 350.1.13.10 ity of [place] 4.2.7.2.686 [place] as Toño?Blea [id number] Ct whit [place] [address] [place] Medical Office [facility] 2021-02-09 2021-02-09 Athletic Trainer Lab, Ang - Db [facility] 1.2.840.1 14 [id number] Univers 13:49:05 14:04:05 Visit Claudette Evans A Health 350.1.13.1 0 ity of [place] 4.2.7.2.686 [place] as Toño?Blea [phone] Ct whit [place] [address] [place] Medical Office [facility] 2021-02-09 2021-02-09 Office Crist[facility]DR[facility] 1.2.840.114 [id number] Univers 12:23:13 13:47:12 Visit Wondiful A Health 350.1.13.10 ity of [place] 4.2.7.2.686 Martin as Toño?Blea [id number] Ct whit [place] [address] [place] Medical Office [facility] 2021-02-09 2021-02-09 Outpatient R CRISTINA [facility] [id number] Univers 13:00:00 13:00:00 WONDIFUL ity o f [facility] 2021-02-08 2021-02-08 Outpatient R ADITYA MEEKS [facility] [id number] Univers 10:20:00 10:20:00 ADITYA MEEKS of [facility] 2021-02-02 2021-02-02 Outpatient R YANELI [facility] [id number] Univers 10:30:00 10:30:00 SKYLAR lechuga [facility] 2021-02-02 2021-02-02 Telephone [facility] 1.2.840.114 [id number] Univers 00:00:00 00:00:00 Wondiful A Health 350.1.13.10 ity of [place] 4.2.7.2.686 [place] Toño?Blea [id number] [facility] 044 [facility] Office [facility] 2021-02-01 2021-02-01 Outpatient R YANELISELECT [facility] [id number] Univers 08:30:00 08:30:00 SKYLAR lechuga [facility] 2021-01-31 2021-01-[address] [facility] 1.2.840.114 [id number] Univers 18:44:04 19:41:26 Care [facility] 350.1.13.10 i ty of [place] 4.2.7.2.686 [place] as Toño?Blea [id number] [facility] 370 [facility] Office [facility] 2021-01-31 2021-01-31 Outpatient R OLIVERSELECT [facility] [id number] Univers 19:00:00 19:00:00 FLACO ity o f [facility] 2021-01-31 2021-01-31 Telephone [facility] 1.2.840.114 [id number] Univers 00:00:00 00:00:00 Wondiful A Health 350.1.13.10 ity of [place] 4.2.7.2.686 [place] as Toño?Blea [phone] [facility] 044 [facility] Office [facility] 2021-01-30 2021-01-30 Telephone [facility] 1.2.045.928 [id number] Univers 00:00:00 00:00:00 Rad [place] 350.1.13.10 ity of [place].2.[place].2.[place] Profess[place] [phone] Ct dicaliyah nal 059 [facility] 2021-01-26 2021-01-26 Outpatient R PONCESELECT MEDICAL [facility] [id number] Univers 14:00:00 14:00:00 [facility] 2021-01-25 2021-01-25 Outpatient R [facility] [id number] Univers 15:00:00 15:00:00 ity [facility] 2021-01-20 2021-01-20 Telemedici Yan[facility]DR[facility] 1.2.840.114 [id number] Univers 16:51:22 17:12:41 ne Visit Skylar Bailey 350.1.13.10 ity [facility] 4.2.7.2.686 [place] Toño?Blea [phone] [address] Medical Office Building 2021-01-20 2021-01-20 Outpatient R YANELISELECT [facility] [id number] Univers 16:30:00 16:30:00 SKYLAR [facility] 2021-01-19 2021-01-19 Outpatient R LORISELECT [facility]ICAL [facility] [id number] Univers 10:15:00 10:15:00 KAYLEY [facility] 2021-01-14 2021-01-14 JORDAN Guzman 1.2.840.114 [id number] Univers 00:00:00 00:00:00 Management Kassandra ARCE 350.1.13.10 ity [facility] 4.2.7.2.686 [place] as [id number] [facility] 019 Branch 2021-01-12 2021-01-12 Emergency [facility] [id number] Univers 16:10:00 19:45:00 Karin Lawson [id number] [facility] 4.2.7.2.686 [place] [facility] [id number] [facility] 084 Branch 2021-01-12 2021-01-12 Outpatient Farzana [facility] [place] [id number] Univers 15:20:00 15:20:00 ILEANA [facility] 2021-01-12 2021-01-12 Urgent CyrilBj teaguejose [facility] 1.2.840.114 [id number] Univers 14:46:57 15:06:57 Ileana Beth [id number] ity [facility] [id number] [place] as Toño?Blea [id number] [address] [facility] 2020-12-26 2020-12-26 Outpatient R PONCE [facility] [id number] Univers 15:30:00 16:13:32 SENDIL ity [facility] 2020-12-26 2020-12-26 [facility] 1.2.840.114 [id number] Univers 15:30:00 16:13:32 Visit Sendzohra LAWSON 350.1.13.10 [place] [id number] dicaz N[place] 9 [facility] 2020-12-26 2020-12-26 [facility] [id number] [id number] Univers 15:00:32 16:13:32 Visit Sendzohra Lawson [id number] [facility] [id number] [place] dicaz nal 059 Branch [facility] 2020-12-26 2020-12-26 Outpatient R PONCE [facility] [id number] Univers 15:30:00 15:30:00 SENDIL ity [facility] 2020-11-22 2020-11-22 Outpatient R APURVA [facility] [id number] Univers 11:00:00 11:00:00 CELINA lechuga [facility] 2020-11-10 2020-11-10 Urgent Alissa Collins [facility] 1.2.840.114 [id number] 18:42:46 19:53:43 [facility] [id number] [place] [id number] Professio [id number] nal [address] 2020-11-10 2020-11-10 Outpatient R [facility] [id number] Univers 19:00:00 19:00:00 ity of [facility] 2020-10-31 2020-10-31 Emergency Kaycee Méndez [facility] [id number] 18:52:00 22:15:00 Sharlene Lulu 350.1.13.10 [place] 4.2.7.2.686 [place] [id number] 2020-10-31 2020-10-31 Outpatient R NATASHA [facility] [id number] Univers 19:00:00 19:00:00 CARI lechuga o susan [facility] 2020-10-31 2020-10-31 Orders Doctor JORDAN 1.2.840.114 [id number] 00:00:00 00:00:00 Only Unassigned, YAZMIN 350.1.13.10 [facility] 4.2.7.2.686 [id number] 2020-10-20 2020-10-20 Emergency Kaycee Méndez [facility] 1.2.840.114 [id number] 14:02:00 17:13:00 Sharlene Lawson 350.1.13.10 [place] 4.2.7.2.686 [place] [id number] 2020-10-14 2020-10-14 Hospital Prasanna Vargas [facility] 1.2.840.114 [id number] 10:00:00 23:59:00 Encounter Jm Lawson 350.1.13.10 [place] 4.2.7.2.686 [place] [id number] 2020-10-14 2020-10-14 Outpatient R APURVA [facility] [id number] Univers 13:30:00 13:30:00 CELINA lechuga [facility] 2020-10-09 2020-10-09 [facility] [id number] 12:00:00 15:57:00 Anna Lawson 350.1.13.10 [place] 4.2.7.2.686 [place] [id number] 2020-10-06 2020-10-06 Office Prasanna Vargas [facility] [id number] 08:53:00 09:46:44 Visit Jm Lawson 350.1.13.10 [place] 4.2.7.2.686 Professio [id number] [address] 2020-10-06 2020-10-06 Outpatient R PRASANNA VARGAS [facility] [id number] Univers 09:30:00 09:30:00 [facility] 2020-10-04 2020-10-04 Outpatient R APURVA [facility] [id number] Univers 14:00:00 [facility]:00:[facility] 2020-09-30 Outpatient R APURVA [facility] [id number] Univers 10:30:00 [facility]:30[facility] 2020-09-29 Outpatient R JASPAL [facility] [id number] Univers 13:45:00 13:45:00 PREET [facility] 2020-09-06 2020-09-06 Outpatient R PRASANNA VARGAS [facility] [id number] Univers 15:30:00 15:30:00 [facility] 2020-09-02 2020-09-02 Outpatient R DARRION WYATT [facility] [id number] Univers 15:40:00 15:40:00 DARRION WYATT [facility] 2020-08-31 2020-08-31 Outpatient R PONCE [facility] [id number] Univers 10:30:00 10:30:00 SENDIL [facility] 2020-08-18 2020-08-18 Outpatient Farzana VARGASPRASANNA [facility] [id number] Univers 09:30:00 09:30:00 [facility] 2020-08-11 2020-08-11 Outpatient Farzana VARGASPRASANNA [facility] [id number] Univers 13:30:00 13:30:00 [facility] 2020-08-04 2020-08-04 Outpatient R JUSTINE [facility] [id number] Univers 14:00:00 14:00:00 [facility] 2020-07-28 2020-07-28 Outpatient R PONCE [facility] [id number] Univers 10:30:00 10:30:00 SENDIL [facility] 2020-06-30 2020-06-30 Outpatient R CRISTINA [facility] [id number] Univers 16:15:00 16:15:00 WONDIFUL ity o f [facility] 2020-06-17 2020-06-17 Outpatient DARRION QUIROZ [facility] [id number] Univers 15:00:00 15:00:00 DARRION WYATT [facility] 2020-06-16 2020-06-16 Outpatient Farzana SERRA [facility] [id number] Univers 15:30:00 15:30:00 SENDIL [facility] 2020-06-09 2020-06-09 Outpatient Farzana DISLANI [facility] [id number] Univers 12:30:00 12:30:00 [facility] 2020-06-08 2020-06-08 Outpatient Farzana DISLANI [facility] [id number] Univers 08:00:00 08:00:00 [facility] 2020-06-02 2020-06-02 Outpatient Farzana SERRA [facility] [id number] Univers 09:00:00 09:00:00 SENDIL [facility] 2020-05-28 2020-05-28 Outpatient Farzana KAUR [facility] [id number] Univers 10:00:00 10:00:00 CARI ity o f [facility] 2020-05-24 2020-05-24 Outpatient Farzana DISLANI [facility] [id number] Univers 10:00:00 10:00:00 [facility] 2020-05-19 2020-05-19 Outpatient OSITO AMARO [facility] [id number] Univers 16:30:00 16:30:00 [facility] 2020-05-17 2020-05-17 Outpatient DARRION QUIROZ [facility] [id number] Univers 13:00:00 13:00:00 DARRION WYATT [facility] 2020-05-16 2020-05-16 Outpatient Farzana EVANS [facility] [id number] Univers 16:00:00 16:00:00 WONDIFUL ity o f [facility] 2020-05-08 2020-05-08 [facility] [id number] Univers 10:24:00 13:03:00 OLAMIDE [facility] 2020-05-03 2020-05-03 Outpatient R CRISTINA [facility] [id number] Univers 15:00:00 15:00:00 WONDIFUL ity o f [facility] 2020-04-30 2020-05-01 Outpatient X KAVYA, [facility] JOSÉ MANUEL [id number] Univers 11:14:00 15:50:00 RODRIGUEZ [facility] 2020-04-30 2020-04-30 Outpatient R JASPAL [facility] [id number] Univers 10:20:00 10:20:00 ROSALES [facility] 2020-04-30 2020-04-30 Outpatient R JASPAL [facility] [id number] Univers 10:15:00 10:15:[facility] 2020-04-28 2020-04-28 Outpatient R OSITO HITCHCOCK [facility] [id number] Univers 14:00:00 14:00:[facility] 2020-04-25 Outpatient R CRISTINA, [facility] [id number] Univers 16:15:00 16:15:00 WONDIFUL ity o f [facility] 2020-04-18 2020-04-18 Outpatient R OSITO HITCHCOCK [facility] [id number] Univers 10:00:00 10:00:00 [facility] 2020-04-15 2020-04-15 Outpatient R PONCE [facility] [id number] Univers 10:30:00 10:30:00 SENDIL [facility] 2020-04-12 2020-04-13 Outpatient X MARICRUZ DELUNA [facility] NATTY [id number] Univers 13:38:00 16:25:00 [facility] 2020-03-17 2020-03-17 Outpatient R DEYVI [facility] [id number] Univers 16:15:00 16:15:00 TETO [facility] 2020-03-04 2020-03-04 Refill Osito Hitchcock [facility] [id number] [id number] 00:00:00 00:00:00 MULTISPEC 350.1.13.10 [place] 4.2.7.2.686 [facility] [id number] [facility] 2020-02-25 2020-02-25 Outpatient R OSITO HITCHCOCK [facility] [id number] Univers 16:00:00 16:00:00 [facility] 2020 Outpatient R DEYVI [facility] [id number] Univers 14:00:00 14:00:00 [facility] 2020-02-08 2020-02-08 Outpatient R ALICIAPRASANNA [facility] [id number] Univers 10:30:00 10:30:00 [facility] 2020-02-04 2020-02-04 Outpatient R OSITO HITCHCOCK [facility] [id number] Univers 13:30:00 13:30:00 [facility] 2020-01-23 2020-01-23 Outpatient R [facility] [id number] Univers 10:15: 10:15:00 [facility] 2020-01-21 2020-01-21 Outpatient R OSITO HITCHCOCK [facility] [id number] Univers 13:00:00 13:00:00 [facility] 2020-01-14 2020-01-14 Outpatient R OSITO HITCHCOCK [facility] [id number] Univers 16:00:00 16:00:00 [facility] 2020-01-05 2020-01-05 Outpatient R VARGASPRASANNA [facility] [id number] Univers 13:45:00 13:45:00 [facility] 2019-12-03 2019-12-03 Outpatient R AKINSIPE, [facility] [id number] Univers 10:30:00 10:30:00 CRICKET lechuga o f [facility] 2019-11-27 2019-11-27 Outpatient R DEYVI [facility] [id number] Univers 11:00:00 11:00:00 [facility] 2019-11-25 2019-11-25 Outpatient R DEYVI [facility] [id number] Univers 08:00:00 08:00:00 [facility] 2019-11-18 2019-11-18 Outpatient R VANAPHAN, [facility] [id number] Univers 10:00:00 10:00:00 TETO [facility] 2019-09-02 2019-09-02 Outpatient R AKINSIPE, [facility] [id number] Univers 11:00:00 11:00:00 CRICKET maradiagay o f [facility] 2019-08-14 2019-08-14 Outpatient R VANAPHAN, [facility] [id number] Univers 10:15:00 10:15:00 TETO [facility] 2019-08-13 2019-08-13 Outpatient R AKINSIPE, [facility] [id number] Univers 11:00:00 11:00:00 CRICKET lechuga o susan [facility] 2019-08-12 2019-08-12 Outpatient R [facility] [id number] Univers 09:00:00 09:00:00 [facility] 2019-07-20 2019-07-20 Outpatient P PRASANNA VARGAS [facility] CHRIS [id number] Univers 16:06:00 16:06:00 [facility] 2019-07-20 2019-07-20 Outpatient R AKINSIPE, [facility] [id number] Univers 08:15:00 08:15:00 CRICKET lechuga o susan [facility] 2019-07-13 2019-07-13 Outpatient R AKINSIPE, [facility] [id number] Univers 08:00:00 08:00:00 CRICKET ity o susan [facility] 2019-07-12 2019-07-12 Outpatient P PRASANNA VARGAS [facility] CHRIS [id number] Univers 13:39:00 13:39:00 [facility] 2019-07-06 2019-07-06 Outpatient R AKINSIPE, [facility] [id number] Univers 13:00:00 13:00:00 CRICKET lechuga o [facility] 2019-06-13 2019-06-13 Emergency X LAURENLEROYSAHRA, [facility] ERT [id number] Univers 10:40:46 12:35:00 SARAHI [facility] 2019-05-13 2019-05-14 Outpatient P PRASANNA VARGAS [facility] CHRIS [id number] Univers 23:07:00 09:15:00 [facility] Results Test Description Test Time Test Comments Results Result Comments Source TEST, SERUM 2022-08-01 00:23:34 Test Item Value Reference Range Interpretation Comme nts PREG SERUM (test code = 5258100035) Negative WESLEY (test code = WESLEY) Less than 10 IU/L. ?If low titer or ectopic is suspected, resubmit specimen in 48-72 hours. [facility] ([id number])2022-07-31 23:58:12 Test Item Value Reference Range Interpretation Comments NA (test code = 140 mmol/L 135-145 7095410025) K (test code = 3.6 mmol/L 3.5-5.0 5067679103) CL (test code = 106 mmol/L 98-108 0324535090) CO2 TOTAL (test code = 21 mmol/L 23-31 L 4729886497) AGAP (test code = 13 2-16 0656844507) BUN (test code = 8 mg/dL 7-23 3882071301) GLUCOSE (test code = 90 mg/dL 70-110 8405581403) CREATININE (test code = 0.90 mg/dL 0.50-1.04 7185689703) TOTAL BILI (test code = 0.5 mg/dL 0.1-1.8 6729839269) CALCIUM (test code = 9.0 mg/dL 8.6-10.6 9510219873) T PROTEIN (test code = 7.8 g/dL 6.3-8.2 3280770815) ALBUMIN (test code = 4.6 g/dL 3.5-5.0 6905862525) ALK PHOS (test code = 63 U/L 34-122 8269438727) ALTv (test code = 23 U/L 5-35 1742-6) AST(SGOT) (test code = 27 U/L 13-40 5741134056) eGFR (test code = 75.1 mL/min/1.73m2 9445532244) WESLEY (test code = WESLEY) Association of [...] tests). Lab Interpretation Abnormal (test code = 59442-8) [facility]2023-03-21 23:57:32 Test Item Value Reference Range Interpretation Comments LIPASE (test code = 1483240395) 55 U/L 0-220 Lab Interpretation (test code = Normal 02795-4) [facility] Worth[facility] WITH [id number] 23:47:31 Test Item Value Reference Range Interpretation Comments WBC (test code = 5.64 See_Comment [Automated 2449-2) message] The sy stem which generated this result transmitted reference range : 4.30 - 11.10 10*3/?L. The reference range was not used to interpret this result as normal/abnormal . RBC (test code = 4.51 See_Comment [Automated 914-5) message] The sy stem which generated this [...] RDW-SD (test code = 42.5 fL 39.0-49.9 43602-1) RDW-CV (test code = 13.0 % 12.0-15.5 788-0) PLT (test code = 339 See_Comment [Automated 777-3) message] The sy stem which generated this result transmitted reference range : 166 - 358 10*3/ ?L. The reference r david was not used to interpret this result as normal/abnormal . MPV (test code = 9.4 fL 9.5-12.9 L 74760-9) NRBC/100 WBC (test 0.0 See_Comment [Automat ed code = 1583479785) message] The system which generated this result transmitted reference range : 0.0 - 10.0 /100 WBCs. The refer ence range was not u sed to interpret th is result as normal/abnormal . NRBC x10^3 (test code See_Comment [Auto mated = 1123148215) message] The s ystem which generated this result transmitted reference range : 10*3/?L. The reference range was not used to interpret this result as normal/abnormal . GRAN MAT (NEUT) % 51.2 % (test code = 770-8) IMM GRAN % (test code 0.20 % = 1876987647) LYMPH % (test code = 36.5 % 736-9) MONO % (test code = 5.7 % 5905-5) EOS % (test code = 5.9 % 713-8) BASO % (test code = 0.5 % 706-2) GRAN MAT x10^3(ANC) 2.89 10*3/uL 1.88-7.09 (test code = 2886658909) IMM GRAN x10^3 (test 0.00-0.06 code = 2046675643) LYMPH x10^3 (test code 2.06 10*3/uL 1.32-3.29 = 731-0) MONO x10^3 (test code 0.32 10*3/uL 0.33-0.92 L = 742-7) EOS x10^3 (test code = 0.33 10*3/uL 0.03-0.39 711-2) BASO x10^3 (test code 0.03 10*3/uL 0.01-0.07 = 704-7) Lab Interpretation Abnormal (test code = 05012-0) [facility] [id number] 16:14:38 Test Item Value Reference Range Interpretation Comments POCT Molecular Strep (test code = Negative Negative 71914-9) Lab Interpretation (test code = Normal 18107-2) [facility]OL[facility] PAN[facility] ([id number])2022-05-05 19:35:37 Test Item Value Reference Range Interpretation Comments NA (test code = 139 mmol/L 135-145 8818913764) K (test code = 4.4 mmol/L 3.5-5.0 2755381180) CL (test code = 104 mmol/L 98-108 0109342582) CO2 TOTAL (test code = 22 mmol/L 23-31 L 3107485196) AGAP (test code = 2-16 6559378154) BUN (test code = 11 mg/dL 7-23 0781143847) GLUCOSE (test code = 95 mg/dL 70-110 2455137443) CREATININE (test code = 0.71 mg/dL 0.50-1.04 4926519760) TOTAL BILI (test code = 0.4 mg/dL 0.1-1.4 7827307278) CALCIUM (test code = 9.1 mg/dL 8.6-10.6 7046939403) T PROTEIN (test code = 7.9 g/dL 6.3-8.2 7439525463) ALBUMIN (test code = 4.7 g/dL 3.5-5.0 8962576825) ALK PHOS (test code = 114 U/L 34-122 5738668023) ALTv (test code = 21 U/L 5-35 1742-6) AST(SGOT) (test code = 21 U/L 13-40 1816984551) eGFR (test code = mL/min/1.73m2 1430555435) WESLEY (test code = WESLEY) Association of [...] tests). Lab Interpretation Abnormal (test code = 26871-5) [facility] WITH [id number] 19:25:37 Test Item Value Reference Range Interpretation Comments WBC (test code = See_Comment [Automated 7783-2) message] The sy stem which generated this result transmitted reference range : 4.30 - 11.10 10*3/?L. The reference range was not used to interpret this result as normal/abnormal . RBC (test code = See_Comment [Automated 677-8) message] The sy stem which generated this [...] RDW-SD (test code = 41.7 fL 39.0-49.9 54991-5) RDW-CV (test code = 12.7 % 12.0-15.5 788-0) PLT (test code = See_Comment H [Automated 777-3) message] The sy stem which generated this result transmitted reference range : 166 - 358 10*3/ ?L. The reference r david was not used to interpret this result as normal/abnormal . MPV (test code = 8.8 fL 9.5-12.9 L 31743-3) NRBC/100 WBC (test See_Comment [Automat ed code = 6167355677) message] The system which generated this result transmitted reference range : 0.0 - 10.0 /100 WBCs. The refer ence range was not u sed to interpret th is result as normal/abnormal . NRBC x10^3 (test code See_Comment [Auto mated = 7460218960) message] The s ystem which generated this result transmitted reference range : 10*3/?L. The reference range was not used to interpret this result as normal/abnormal . GRAN MAT (NEUT) % 56.1 % (test code = 770-8) IMM GRAN % (test code 0.40 % = 1103867123) LYMPH % (test code = 29.9 % 736-9) MONO % (test code = 5.4 % 5905-5) EOS % (test code = 7.8 % 713-8) BASO % (test code = 0.4 % 706-2) GRAN MAT x10^3(ANC) 3.75 10*3/uL 1.88-7.09 (test code = 6241074737) IMM GRAN x10^3 (test 0.03 10*3/uL 0.00-0.06 code = 8390177885) LYMPH x10^3 (test code 2.00 10*3/uL 1.32-3.29 = 731-0) MONO x10^3 (test code 0.36 10*3/uL 0.33-0.92 = 742-7) EOS x10^3 (test code = 0.52 10*3/uL 0.03-0.39 H 711-2) BASO x10^3 (test code 0.03 10*3/uL 0.01-0.07 = 704-7) Lab Interpretation Abnormal (test code = 15650-0) [facility] [id number] 19:00:00 Test Item Value Reference Range Interpretation Comments POCT PREG (test code = 1605) negative On board controls acceptable with present C Line (test code = 3574) POCT PREG LOT # (test code = 3575) [id number] POCT PREG TEST DATE (test 08-11-2023 code = 3576) Lab Interpretation (test code = Normal 83649-9) [facility] WITH [id number] 15:21:11 Test Item Value Reference Range Interpretation Comments WBC (test code = See_Comment [Automated 5901-2) message] The sy stem which generated this result transmitted reference range : 4.30 - 11.10 10*3/?L. The reference range was not used to interpret this result as normal/abnormal . RBC (test code = See_Comment [Automated 571-8) message] The sy stem which generated this [...] RDW-SD (test code = 42.6 fL 39.0-49.9 10349-6) RDW-CV (test code = 12.9 % 12.0-15.5 788-0) PLT (test code = See_Comment H [Automated 777-3) message] The sy stem which generated this result transmitted reference range : 166 - 358 10*3/ ?L. The reference r david was not used to interpret this result as normal/abnormal . MPV (test code = 9.1 fL 9.5-12.9 L 58843-9) NRBC/100 WBC (test See_Comment [Automat ed code = 6180963674) message] The system which generated this result transmitted reference range : 0.0 - 10.0 /100 WBCs. The refer ence range was not u sed to interpret th is result as normal/abnormal . NRBC x10^3 (test code See_Comment [Auto mated = 1421935334) message] The s ystem which generated this result transmitted reference range : 10*3/?L. The reference range was not used to interpret this result as normal/abnormal . GRAN MAT (NEUT) % 56.8 % (test code = 770-8) IMM GRAN % (test code 0.30 % = 5081939799) LYMPH % (test code = 29.5 % 736-9) MONO % (test code = 4.3 % 5905-5) EOS % (test code = 8.3 % 713-8) BASO % (test code = 0.8 % 706-2) GRAN MAT x10^3(ANC) 3.57 10*3/uL 1.88-7.09 (test code = 1713924531) IMM GRAN x10^3 (test 0.00-0.06 code = 3624042185) LYMPH x10^3 (test code 1.85 10*3/uL 1.32-3.29 = 731-0) MONO x10^3 (test code 0.27 10*3/uL 0.33-0.92 L = 742-7) EOS x10^3 (test code = 0.52 10*3/uL 0.03-0.39 H 711-2) BASO x10^3 (test code 0.05 10*3/uL 0.01-0.07 = 704-7) Lab Interpretation Abnormal (test code = 45419-6) [facility] ([id number])2022-04-26 15:12:13 Test Item Value Reference Range Interpretation Comments NA (test code = 141 mmol/L 135-145 4969182397) K (test code = 3.4 mmol/L 3.5-5.0 L 8965191352) CL (test code = 104 mmol/L 98-108 5401300213) CO2 TOTAL (test code = 23 mmol/L 23-31 5263062208) AGAP (test code = 2-16 7778299573) BUN (test code = 9 mg/dL 7-23 4813251572) GLUCOSE (test code = 101 mg/dL 70-110 9118756964) CREATININE (test code = 0.82 mg/dL 0.50-1.04 1586135769) TOTAL BILI (test code = 0.7 mg/dL 0.1-1.7 5432890467) CALCIUM (test code = 9.3 mg/dL 8.6-10.6 6402551754) T PROTEIN (test code = 8.1 g/dL 6.3-8.2 8492864558) ALBUMIN (test code = 4.7 g/dL 3.5-5.0 3425212371) ALK PHOS (test code = 108 U/L 34-122 2409911642) ALTv (test code = 24 U/L 5-35 1742-6) AST(SGOT) (test code = 49 U/L 13-40 H 4317783021) eGFR (test code = mL/min/1.73m2 0773140446) WESLEY (test code = WESLEY) Association of [...] tests). Lab Interpretation Abnormal (test code = 45114-0) [facility] [id number] 14:45:00 Test Item Value Reference Range Interpretation Comments POCT PREG (test code = 1605) negative On board controls acceptable with present C Line (test code = 3574) POCT PREG LOT # (test code = 3575) [id number] POCT PREG TEST DATE (test 08/11/2023 code = 3576) Lab Interpretation (test code = Normal 63367-5) [facility] [id number] 01:22:00 Test Item Value Reference Range Interpretation Comments POCT PREG (test code = 1605) Negative On board controls acceptable with Present C Line (test code = 3574) POCT PREG LOT # (test code = 3575) [id number] POCT PREG TEST DATE (test 08-11-2023 code = 3576) Lab Interpretation (test code = Normal 30408-2) [facility] (NA, K, CL, CO2, GLUCOSE, BUN, CREATININE, CA)2022-04-07 23:01:10 Test Item Value Reference Range Interpretation Comments NA (test code = 138 mmol/L 135-145 4839936699) K (test code = 4.3 mmol/L 3.5-5.0 4004922695) CL (test code = 107 mmol/L 98-108 6469510694) CO2 TOTAL (test code = 20 mmol/L 23-31 L 7406904753) AGAP (test code = 2-16 7958160984) BUN (test code = 9 mg/dL 7-23 4280805861) GLUCOSE (test code = 204 mg/dL 70-110 H 9394317521) CREATININE (test code = 0.74 mg/dL 0.50-1.04 0980777954) CALCIUM (test code = 9.1 mg/dL 8.6-10.6 3537744431) eGFR (test code = mL/min/1.73m2 2365880808) WESLEY (test code = WESLEY) Association of [...] tests). Lab Interpretation Abnormal (test code = 25384-2) [facility] WITH [id number] 22:57:34 Test Item Value Reference Range Interpretation Comments WBC (test code = See_Comment [Automated 6790-2) message] The sy stem which generated this [...] RDW-SD (test code = 42.9 fL 39.0-49.9 89841-7) RDW-CV (test code = 13.4 % 12.0-15.5 788-0) PLT (test code = See_Comment H [Automated 777-3) message] The sy stem which generated this result transmitted reference range : 166 - 358 10*3/ ?L. The reference r david was not used to interpret this result as normal/abnormal . MPV (test code = 8.9 fL 9.5-12.9 L 63416-5) NRBC/100 WBC (test See_Comment [Automat ed code = 9853751368) message] The system which generated this result transmitted reference range : 0.0 - 10.0 /100 WBCs. The refer ence range was not u sed to interpret th is result as normal/abnormal . NRBC x10^3 (test code See_Comment [Auto mated = [id number]) message] The s ystem which generated this result transmitted reference range : 10*3/?L. The reference range was not used to interpret this result as normal/abnormal . GRAN MAT (NEUT) % 88.7 % (test code = 770-8) IMM GRAN % (test code 0.70 % = [id number]) LYMPH % (test code = 9.4 % 736-9) MONO % (test code = 0.9 % 5905-5) EOS % (test code = 0.1 % 713-8) BASO % (test code = 0.2 % 706-2) GRAN MAT x10^3(ANC) 7.81 10*3/uL 1.88-7.09 H (test code = [id number]) IMM GRAN x10^3 (test 0.06 10*3/uL 0.00-0.06 code = [id number]) LYMPH x10^3 (test code 0.83 10*3/uL 1.32-3.29 L = 731-0) MONO x10^3 (test code 0.08 10*3/uL 0.33-0.92 L = 742-7) EOS x10^3 (test code = 0.03-0.39 L 711-2) BASO x10^3 (test code 0.01-0.07 = 704-7) Lab Interpretation Abnormal (test code = 75108-1) [facility] [id number] 14:07:00 Test Item Value Reference Range Interpretation Comments POCT PREG (test code = 1605) negative On board controls acceptable with present C Line (test code = 3574) POCT PREG LOT # (test code = 3575) [id number] POCT PREG TEST DATE (test 08/11/2023 code = 3576) Lab Interpretation (test code = Normal 77371-4) [facility] [id number] 13:52:00 Test Item Value Reference Range Interpretation Comments POCT PREG (test code = 1605) negative On board controls acceptable with C present Line (test code = 3574) Lab Interpretation (test code = Normal 98134-5) [facility] [id number] 14:59:00 Test Item Value Reference Range Interpretation Comments POCT PREG (test code = 1605) negative On board controls acceptable with yes C Line (test code = 3574) POCT PREG LOT # (test code = 3575) [id number] POCT PREG TEST DATE (test 07/11/2023 code = 3576) Lab Interpretation (test code = Normal 89161-5) [facility] METABOLIC PANEL ([id number])2022 17:51:43 Test Item Value Reference Range Interpretation Comments NA (test code = 139 mmol/L 135-145 9768641581) K (test code = 4.1 mmol/L 3.5-5 5617855066) CL (test code = 104 mmol/L 98-108 0728000997) CO2 TOTAL (test code = 22 mmol/L 23-31 L 4316446386) AGAP (test code = 2-16 8566075258) BUN (test code = 7 mg/dL 7-23 2524149423) GLUCOSE (test code = 114 mg/dL 70-110 H 2649360395) CREATININE (test code = 0.69 mg/dL 0.5-1.04 3772396312) TOTAL BILI (test code = 0.4 mg/dL 0.1-1.9 0842437055) CALCIUM (test code = 9.7 mg/dL 8.6-10.6 8119321671) T PROTEIN (test code = 7.2 g/dL 6.3-8.2 4534025881) ALBUMIN (test code = 4.6 g/dL 3.5-5 7542958703) ALK PHOS (test code = 65 U/L 34-122 4190108427) ALTv (test code = 15 U/L 5-35 1742-6) AST(SGOT) (test code = 19 U/L 13-40 5370320148) eGFR (test code = mL/min/1.73m2 9843890353) WESLEY (test code = WESLEY) Association of [...] tests). Lab Interpretation Abnormal (test code = 46457-8) [facility] WITH [id number] 17:40:24 Test Item Value Reference Range Interpretation Comments WBC (test code = See_Comment [Automated 4513-2) message] The sy stem which generated this result transmitted reference range : 4.30 - 11.10 10*3/?L. The reference range was not used to interpret this result as normal/abnormal . RBC (test code = See_Comment [Automated 432-8) message] The sy stem which generated this [...] RDW-SD (test code = 43.1 fL 39-49.9 82209-0) RDW-CV (test code = 13.2 % 12-15.5 788-0) PLT (test code = See_Comment [Automated 117-3) message] The sy stem which generated this result transmitted reference range : 166 - 358 10*3/ ?L. The reference r david was not used to interpret this result as normal/abnormal . MPV (test code = 9.5 fL 9.5-12.9 88440-2) NRBC/100 WBC (test See_Comment [Automat ed code = 3433005750) message] The system which generated this result transmitted reference range : 0.0 - 10.0 /100 WBCs. The refer ence range was not u sed to interpret th is result as normal/abnormal . NRBC x10^3 (test code See_Comment [Auto mated = 1432494716) message] The s ystem which generated this result transmitted reference range : 10*3/?L. The reference range was not used to interpret this result as normal/abnormal . GRAN MAT (NEUT) % 57.8 % (test code = 770-8) IMM GRAN % (test code 0.20 % = 0204808879) LYMPH % (test code = 30.8 % 736-9) MONO % (test code = 5.1 % 5905-5) EOS % (test code = 5.6 % 713-8) BASO % (test code = 0.5 % 706-2) GRAN MAT x10^3(ANC) 3.61 10*3/uL 1.88-7.09 (test code = 5197833604) IMM GRAN x10^3 (test 0-0.06 code = 7089509637) LYMPH x10^3 (test code 1.92 10*3/uL 1.32-3.29 = 731-0) MONO x10^3 (test code 0.32 10*3/uL 0.33-0.92 L = 742-7) EOS x10^3 (test code = 0.35 10*3/uL 0.03-0.39 711-2) BASO x10^3 (test code 0.03 10*3/uL 0.01-0.07 = 704-7) Lab Interpretation Abnormal (test code = 86892-7) [id number] 17:27:00 Test Item Value Reference Range Interpretation Comments POCT PREG (test code = 1605) negative On board controls acceptable with present C Line (test code = 3574) POCT PREG LOT # (test code = 3575) [id number] POCT PREG TEST DATE (test code = 3576) Lab Interpretation (test code = Normal 20338-2) [facility] 12:45:21 Test Item Value Reference Range Interpretation Comments LIPASE (test code = 5897153508) 41 U/L 0-220 Lab Interpretation (test code = Normal 82404-4) [facility] [id number] 10:57:00 Test Item Value Reference Range Interpretation Comments POCT PREG (test code = 1605) Negative On board controls acceptable with Present C Line (test code = 3574) POCT PREG LOT # (test code = 3575) [id number] POCT PREG TEST DATE (test 03/12/2023 code = 3576) Lab Interpretation (test code = Normal 15254-0) [facility] METABOLIC PANEL (NA, K, CL, CO2, GLUCOSE, BUN, CREATININE, CA)2022-01-18 10:56:51 Test Item Value Reference Range Interpretation Comments NA (test code = 137 mmol/L 135-145 7209633357) K (test code = 4.6 mmol/L 3.5-5 Slight 5965262869) hemolysis CL (test code = 108 mmol/L 98-108 2454692686) CO2 TOTAL (test code 22 mmol/L 23-31 L = 3363203503) AGAP (test code = 2-16 5240824224) BUN (test code = 11 mg/dL 7-23 Slight 5724067097) hemolysis GLUCOSE (test code = 83 mg/dL 70-110 1101781654) CREATININE (test code 0.68 mg/dL 0.5-1.04 = 1571457887) CALCIUM (test code = 8.8 mg/dL 8.6-10.6 4257776970) eGFR (test code = mL/min/1.73m2 1602456887) WESLEY (test code = WESLEY) Association of [...] tests). Lab Interpretation Abnormal (test code = 07215-2) [facility] [place]74410[facility] (ALB,T.PRO,BILI T,BU/BC,ALT,AST,ALK PHOS)2022-01-18 10:56:51 Test Item Value Reference Range Interpretation Comments TOTAL BILI (test code = 8459280557) 0.6 mg/dL 0.1-1.1 BILI UNCON (test code = 3373321231) 0.1 mg/dL 0.1-1.1 BILI CONJ (test code = 3729978737) 0.0 mg/dL 0-0.3 T PROTEIN (test code = 9694717154) 8.6 g/dL 6.3-8.2 H ALBUMIN (test code = 5099209013) 5.1 g/dL 3.5-5 H ALK PHOS (test code = 6725578315) 79 U/L 34-122 ALTv (test code = 1742-6) 117 U/L 5-35 H AST(SGOT) (test code = 4662206443) 163 U/L 13-40 H Lab Interpretation (test code = Abnormal 30076-2) [facility], [id number] 10:54:25 Test Item Value Reference Range Interpretation Comments PREG SERUM (test code Negative = 1312201234) WESLEY (test code = WESLEY) Less than 10 IU/L. ?If low titer or ectopic is suspected, resubmit specimen in 48-72 hours. [facility] WITH [id number] 10:40:49 Test Item Value Reference Range Interpretation [...] RDW-SD (test code = 45.3 fL 39-49.9 77337-5) RDW-CV (test code = 14.5 % 12-15.5 788-0) PLT (test code = See_Comment [Automated 777-3) message] The sy stem which generated this result transmitted reference range : 166 - 358 10*3/ ?L. The reference r david was not used to interpret this result as normal/abnormal . MPV (test code = 9.5 fL 9.5-12.9 81647-5) NRBC/100 WBC (test See_Comment [Automat ed code = 5411139770) message] The system which generated this result transmitted reference range : 0.0 - 10.0 /100 WBCs. The refer ence range was not u sed to interpret th is result as normal/abnormal . NRBC x10^3 (test code See_Comment [Auto mated = 4322778945) message] The s ystem which generated this result transmitted reference range : 10*3/?L. The reference range was not used to interpret this result as normal/abnormal . GRAN MAT (NEUT) % 47.6 % (test code = 770-8) IMM GRAN % (test code 0.60 % = 1106337549) LYMPH % (test code = 39.9 % 736-9) MONO % (test code = 5.9 % 5905-5) EOS % (test code = 5.3 % 713-8) BASO % (test code = 0.7 % 706-2) GRAN MAT x10^3(ANC) 4.45 10*3/uL 1.88-7.09 (test code = 9814426897) IMM GRAN x10^3 (test 0.06 10*3/uL 0-0.06 code = 3701827505) LYMPH x10^3 (test code 3.74 10*3/uL 1.32-3.29 H = 731-0) MONO x10^3 (test code 0.55 10*3/uL 0.33-0.92 = 742-7) EOS x10^3 (test code = 0.50 10*3/uL 0.03-0.39 H 711-2) BASO x10^3 (test code 0.07 10*3/uL 0.01-0.07 = 704-7) Lab Interpretation Abnormal (test code = 05421-5) [facility] [id number] 18:31:00 Test Item Value Reference Range Interpretation Comments POCT PREG (test code = 1605) Negative On board controls acceptable with C Yes Line (test code = 3574) POCT PREG LOT # (test code = 3575) POCT PREG TEST DATE (test code = 3576) [facility] URINALYSIS W/O SPECIFIC [id number] 18:31:00 Test Item Value Reference Range Interpretation [...] Negative - Negative [facility] Notes Date/Time Note Provider Source 2022-12-03 Formatting of this note might be differe nt from the original. Blayne Silva RN [facility] 08:57:03-00:00 Patient has an appointment 12/12/22. Blayne Silva RN 12/03/2022 8:57 AM "
[2022-12-05] MEDS ORDERED: MORPHINE 4 MG/ML SYR ONE ×2 (01:11→02:21)
[2022-12-05] MEDS ORDERED: ONDANSETRON 4 MG/2 ML VIAL ONE ×2 (01:11→02:49)
[2022-12-05] MEDS ORDERED: NA CHLORIDE 0.9% 1,000 ML ONE ×3 (01:11→06:10)
[2022-12-05] MEDS ORDERED: NA CHLORIDE 0.9% 100 ML ONE ×2 (03:23→09:39)
[2022-12-05] MEDS ORDERED: VANCOMYCIN 1 GM/VIAL ONE (03:23)
[2022-12-05] MEDS ORDERED: NA CHLORIDE 0.9% 250 ML ONE (03:23)
[2022-12-05] MEDS ORDERED: PIPERACIL/TAZO 3.375 GM VIAL IV ONE ×2 (03:24→09:39)
[2022-12-05] MEDS ORDERED: IBUPROFEN 200 MG TAB PO ONE (03:47)
[2022-12-05] MEDS ORDERED: IBUPROFEN 400 MG TAB ONE (03:47)
[2022-12-05] MEDS ORDERED: HYDROCODONE/APAP 10/325 TAB ONE (03:48)
--- NOTE | 2022-12-05 04:14 | EDPHYS ---
Physician Documentation [facility] Name: Natanael Dyson Age: 27 yrs Sex: Female : 1995 Arrival Date: 12/05/2022 Time: 00:48 Bed 8 Private MD: ED Physician Brodie Mota HPI: 12/05 01:04 This 27 yrs old Female presents to ER via Unassigned with complaints of Vaginal kb Bleeding. 01:04 The patient presents with abdominal pain. Onset: The symptoms/episode began/occurred 3 kb day(s) ago. The symptoms do not radiate. Associated signs and symptoms: Pertinent positives: fever. The symptoms are described as constant. Modifying factors: The symptoms are alleviated by nothing, the symptoms are aggravated by movement, pressure. Severity of pain: At its worst the pain was moderate in the emergency department the pain is unchanged. The patient has not experienced similar symptoms in the past. The patient has been recently been admitted at [facility], was discharged earlier today. Pt reports she had her gallbladder removed 2 days ago and was discharged from the hospital today. Reports she came back for diffuse abd pain. Reports low grade fever at home as well. 05:19 History of cholecystectomy on 12/01/2022. 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 Last tetanus immunization: > 10 years ago Flu vaccine is not up to date. - Social history:: Smoking status: Patient denies any tobacco usage or history of. Patient/guardian denies using alcohol, street drugs. ROS: 01:03 Constitutional: Negative for fever, chills, and weight loss. kb 01:03 Abdomen/GI: Positive for abdominal pain, Negative for nausea, vomiting, and diarrhea. 01:03 All other systems are negative. 01:03 : Positive for vaginal bleeding. kb Exam: 01:03 Constitutional: This is a well developed, well nourished patient who is awake, alert, kb and in no acute distress. Head/Face: Normocephalic, atraumatic. ENT: Moist Mucous membranes Cardiovascular: Regular rate and rhythm with a normal S1 and S2. No gallops, murmurs, or rubs. No pulse deficits. Respiratory: Respirations even and unlabored. No increased work of breathing. Talking in full sentences Skin: Warm, dry with normal turgor. Normal color. MS/ Extremity: Pulses equal, no cyanosis. Neurovascular intact. Full, normal range of motion. Neuro: Awake and alert, GCS 15, oriented to person, place, time, and situation. Moves all extremities. Normal gait. 01:03 Abdomen/GI: Inspection: surgical dressings in place, intact, clean and dry, Bowel sounds: normal, Palpation: soft, in all quadrants, moderate abdominal tenderness, in all quadrants. Vital Signs: 01:05 BP 150 / 100; Pulse 110; Resp 20; Temp 99.8; Pulse Ox 99% on R/A; Weight 68.5 kg; pf1 Height 5 ft. 1 in. ; Pain 10/10; 01:42 BP 135 / 86; Pulse 98; Resp 20 S; Pulse Ox 98% on R/A; as6 02:59 BP 133 / 86; Pulse 91; Resp 18 S; Pulse Ox 96% on R/A; as6 03:25 Temp 100(O); as6 04:57 BP 136 / 87; Pulse 85; Resp 18 S; Pulse Ox 96% on R/A; as6 05:26 Temp 98.7(O); as6 01:05 Body Mass Index 28.53 (68.50 kg, 154.94 cm) pf1 01:05 Pain Scale: Adult pf1 MDM: 00:54 Patient medically screened. kb 01:05 Differential diagnosis: non-specific abd pain, pancreatitis, abscess, post surgical kb infection. Data reviewed: vital signs, nurses notes. 02:45 Transition of care: After a detail discussion of the patient's case, care is kb transferred to Brodie Mota MD. 03:55 ED course: CT report called in by Radiologist - NO PE, Pulmonary congestion, . ED sp4 course: Abscess collection in the gallbladder fossa , gas containing , possible seroma, or abscess. . 04:10 ED course: IMPRESSION: CTAngiography Chest With Intravenous Contrast: 1. No pulmonary sp4 embolic disease. 2. Findings which may be related to mild pulmonary congestion. Superimposed infection not excluded. 3. Right lower lobe consolidation (atelectasis and/or infiltrate). 4. Other findings as above. CTAbdomen and Pelvis With Intravenous Contrast: 1. Interval cholecystectomy. Gas containing fluid collection within the gallbladder fossa measuring approximately 7.1 x 2.6 x 5.6 cm. This may represent a developing abscess. An atypical appearing biloma or seroma with postoperative gas may also be considered. 2. Mild fullness of the right renal collecting system. No ureteral or bladder calculi. This appearance is nonspecific and could represent physiologic fullness. Please correlate clinically for urinary tract infection. 3. Other findings as above. THIS REPORT CONTAINS FINDINGS THAT MAYBE CRITICAL TO PATIENT CARE: The findings were verbally discussed via telephone conference with Dr. Brodie Mota on 12/05/2022 3:58 AM CDT. The results were acknowledged and understood.. 12/05 00:59 Order name: CBC with Diff; Complete Time: 05:09 kb 12/05 00:59 Order name: CMP; Complete Time: 05:09 kb 12/05 00:59 Order name: Lipase; Complete Time: 05:09 kb 12/05 00:59 Order name: Test, Urine; Complete Time: 05:09 kb 12/05 00:59 Order name: Urinalysis w/ reflexes; Complete Time: 05:09 kb 12/05 03:04 Order name: Blood Culture Adult (2) sp4 12/05 08:11 Order name: Blood Culture EDMS 12/05 00:59 Order name: CT Abd/Pelvis - IV Contrast Only kb 12/05 00:59 Order name: IV Saline Lock; Complete Time: 01:27 kb 12/05 00:59 Order name: Labs collected and sent; Complete Time: 01:27 kb Administered Medications: 01:20 Drug: NS 0.9% IV 1000 ml Route: IV; Rate: 1 bolus; Site: left forearm; as6 05:04 Follow up: Response: No adverse reaction; IV Status: Completed infusion; IV Intake: as6 1000ml 01:20 Drug: Ondansetron IVP 4 mg Route: IVP; Site: left forearm; as6 05:04 Follow up: Response: No adverse reaction as6 01:20 Drug: morphine IVP or IV 4 mg Route: IVP; Infused Over: 4 mins; Site: left forearm; as6 05:04 Follow up: Response: No adverse reaction as6 02:13 Drug: morphine IVP or IV 4 mg Route: IVP; Infused Over: 4 mins; Site: left forearm; as6 05:04 Follow up: Response: No adverse reaction as6 02:40 Drug: Ondansetron IVP 4 mg Route: IVP; Site: left forearm; as6 05:05 Follow up: Response: No adverse reaction as6 03:42 Drug: NS 0.9% IV 1000 ml Route: IV; Rate: 1 bolus; Site: left forearm; as6 05:05 Follow up: Response: No adverse reaction; IV Status: Completed infusion; IV Intake: as6 1000ml 03:42 Drug: Ibuprofen PO 600 mg Route: PO; as6 05:05 Follow up: Response: No adverse reaction as6 03:42 Drug: [place] PO 10 mg-325 mg 1 tabs Route: PO; as6 05:05 Follow up: Response: No adverse reaction as6 04:58 Drug: Piperacillin-Tazobactam IVPB 3.375 grams Route: IVPB; Infused Over: 60 mins; as6 Site: left forearm; 05:26 Follow up: Response: No adverse reaction; IV Status: Completed infusion; IV Intake: as6 100ml 04:58 Drug: vancoMYCIN IVPB 1 grams Route: IVPB; Infused Over: 2 hrs; Site: right forearm; as6 05:26 Follow up: Response: No adverse reaction; IV Status: Completed infusion; IV Intake: as6 250ml Disposition: 04:04 Co-signature as Attending Physician, Brodie Mota MD I agree with the assessment sp4 and plan of care. I reviewed the patient's care provided by Advanced Practice Provider \T\ agree w/ the diagnosis \T\ care plan. I personally saw the pt \T\ performed a substantive portion of the visit, incldng all aspects of the (History/Exam/Medical Decision Making). Disposition Summary: 12/05/22 04:14 Hospitalization Ordered Hospitalization Status: Inpatient Admission sp4 Provider: Ronald Hernandez sp4 Condition: Stable sp4 Problem: new sp4 Symptoms: have improved sp4 Bed/Room Type: Standard sp4 Location: Telemetry/MedSurg (Inpatient)(12/05/22 09:47) dw Room Assignment: [facility](12/05/22 09:48) dw Diagnosis - Pneumonia due to other specified bacteria sp4 - Right lower lung pneumonia, right lower lung consolidation, gallbladder fossa sp4 collection, postoperative complication, upper abdominal pain, right upper abdominal pain Forms: - Medication Reconciliation Form sp4 - SBAR form sp4 Signatures: Dispatcher [employer] EDBobbi Ramachandran, JEWEL BEARING DRILLER-C JEWEL BEARING DRILLER-Elizabeth Aden RN RN dw Katy Galeano RN RN eb1 Jacky Tamez RN RN as6 Olamide Caicedo RN RN pf1 Brodie Mota MD MD sp4 Corrections: (The following items were deleted from the chart) 04:34 04:14 Telemetry/MedSurg (Inpatient) sp4 eb1 04:34 04:14 sp4 eb1 09:47 04:34 [facility] ER HOLD eb1 dw 09:47 04:34 ERHOLD- eb1 dw 09:48 09:47 222 dw dw
--- NOTE | 2022-12-05 04:14 | ER ---
Nurse's Notes [facility] Name: Natanael Dyson Age: 27 yrs Sex: Female : 1995 Arrival Date: 12/05/2022 Time: 00:48 Bed 8 Private MD: Diagnosis: Pneumonia due to other specified bacteria;Right lower lung pneumonia, right lower lung consolidation, gallbladder fossa collection, postoperative complication, upper abdominal pain, right upper abdominal pain Presentation: 12/05 01:05 Chief complaint: Patient states: abdominal pain of 10, right shoulder blade pain with pf1 SOB, onset worse today, started on 12/01/22, S/P cholecystectomy on 12/01/[address] Geno corona. Patient also C/O vaginal bleeding,onset 1130 today, already had menstrual cycle on 11/24/22. Coronavirus screen: Vaccine status: Patient reports being unvaccinated. Client denies travel out of the [place] in the last 14 days. Client presents with at least one sign or symptom that may indicate coronavirus-19. Ebola Screen: Patient negative for fever greater than or equal to 101.5 degrees Fahrenheit, and additional compatible Ebola Virus Disease symptoms. Initial Sepsis Screen: Does the patient meet any 2 criteria? HR > 90 bpm. No. Patient's initial sepsis screen is negative. Does the patient have a suspected source of infection? No. Patient's initial sepsis screen is negative. Risk Assessment: Do you want to hurt yourself or someone else? Patient reports no desire to harm self or others. 01:05 Method Of Arrival: Ambulatory pf1 01:05 Acuity: THIERNO 3 pf1 01:46 Onset of symptoms was December 05, 2022. 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 Last tetanus immunization: > 10 years ago Flu vaccine is not up to date. - Social history:: Smoking status: Patient denies any tobacco usage or history of. Patient/guardian denies using alcohol, street drugs. Screenin:46 [facility] ED Fall Risk Assessment (Adult) Score/Fall Risk Level 0 - 2 = Low Risk. Abuse as6 screen: Denies threats or abuse. Denies injuries from another. Nutritional screening: No deficits noted. Tuberculosis screening: No symptoms or risk factors identified. Assessment: 01:10 General: Appears uncomfortable, Behavior is cooperative, crying. Pain: Complains of as6 pain in right upper quadrant Pain radiates to posterior aspect of right shoulder Quality of pain is described as sharp, shooting, stabbing. Neuro: Level of Consciousness is awake, alert, obeys commands, Oriented to person, place, time, situation. Cardiovascular: Capillary refill < 3 seconds Patient's skin is warm and dry. Respiratory: Respiratory effort is even, unlabored, Respiratory pattern is regular, symmetrical. Respiratory: Reports shortness of breath. GI: Reports upper abdominal pain. : Reports vaginal bleeding that is. 01:45 Reassessment: pt still c/o pain. provider aware. as6 Vital Signs: 01:05 BP 150 / 100; Pulse 110; Resp 20; Temp 99.8; Pulse Ox 99% on R/A; Weight 68.5 kg; pf1 Height 5 ft. 1 in. ; Pain 10/10; 01:42 BP 135 / 86; Pulse 98; Resp 20 S; Pulse Ox 98% on R/A; as6 02:59 BP 133 / 86; Pulse 91; Resp 18 S; Pulse Ox 96% on R/A; as6 03:25 Temp 100(O); as6 04:57 BP 136 / 87; Pulse 85; Resp 18 S; Pulse Ox 96% on R/A; as6 05:26 Temp 98.7(O); as6 01:05 Body Mass Index 28.53 (68.50 kg, 154.94 cm) pf1 01:05 Pain Scale: Adult pf1 ED Course: 00:52 Patient arrived in ED. mr 00:54 Bobbi Vang F[facility]-C [facility] kb 00:54 Brodie Mota MD is Attending Physician. kb 00:56 Jacky Tamez RN is Primary Nurse. as6 01:13 Triage completed. pf1 01:15 Inserted saline lock: 22 gauge in left forearm, using aseptic technique. Blood as6 collected. 01:42 Arm band placed on. as6 01:46 Bed in low position. Call light in reach. Side rails up X 1. as6 04:13 Ronald Hernandez is Hospitalizing Provider. sp4 04:56 No provider procedures requiring assistance completed. Inserted saline lock: 20 gauge as6 in right forearm, using aseptic technique. Blood collected. ultrasound guided, long catheter Patient admitted, IV remains in place. 04:57 Provided Education on: need for admit . as6 Administered Medications: 01:20 Drug: NS 0.9% IV 1000 ml Route: IV; Rate: 1 bolus; Site: left forearm; as6 05:04 Follow up: Response: No adverse reaction; IV Status: Completed infusion; IV Intake: as6 1000ml 01:20 Drug: Ondansetron IVP 4 mg Route: IVP; Site: left forearm; as6 05:04 Follow up: Response: No adverse reaction as6 01:20 Drug: morphine IVP or IV 4 mg Route: IVP; Infused Over: 4 mins; Site: left forearm; as6 05:04 Follow up: Response: No adverse reaction as6 02:13 Drug: morphine IVP or IV 4 mg Route: IVP; Infused Over: 4 mins; Site: left forearm; as6 05:04 Follow up: Response: No adverse reaction as6 02:40 Drug: Ondansetron IVP 4 mg Route: IVP; Site: left forearm; as6 05:05 Follow up: Response: No adverse reaction as6 03:42 Drug: NS 0.9% IV 1000 ml Route: IV; Rate: 1 bolus; Site: left forearm; as6 05:05 Follow up: Response: No adverse reaction; IV Status: Completed infusion; IV Intake: as6 1000ml 03:42 Drug: Ibuprofen PO 600 mg Route: PO; as6 05:05 Follow up: Response: No adverse reaction as6 03:42 Drug: [place] PO 10 mg-325 mg 1 tabs Route: PO; as6 05:05 Follow up: Response: No adverse reaction as6 04:58 Drug: Piperacillin-Tazobactam IVPB 3.375 grams Route: IVPB; Infused Over: 60 mins; as6 Site: left forearm; 05:26 Follow up: Response: No adverse reaction; IV Status: Completed infusion; IV Intake: as6 100ml 04:58 Drug: vancoMYCIN IVPB 1 grams Route: IVPB; Infused Over: 2 hrs; Site: right forearm; as6 05:26 Follow up: Response: No adverse reaction; IV Status: Completed infusion; IV Intake: as6 250ml Medication: 01:46 VIS not applicable for this client. as6 Intake: 05:04 IV: 1000ml; Total: 1000ml. as6 05:05 IV: 1000ml; Total: 2000ml. as6 05:26 IV: 250ml; Total: 2250ml. as6 05:26 IV: 100ml; Total: 2350ml. as6 Outcome: 04:14 Decision to Hospitalize by Provider. sp4 04:57 Admitted to ER Hold. Please see [facility] for further documentation. as6 04:57 Condition: stable 04:57 Instructed on the need for admit. 10:21 Patient left the ED. ko1 Signatures: Bobbi Vang, TOP DYEING MACHINE TENDER-C TOP DYEING MACHINE TENDER-Kymberly Shrestha SofialaloJacky draper, RN RN as6 Pam Frausto RN RN ko1 Olamide Caicedo RN RN pf1 Potepalov, Sergey, MD MD sp4
[2022-12-05 04:38] LABS: Absolute Lymphocytes (CBC) 1.5 K/uL (0.7-4.9); Albumin 3.2 g/dL (3.4-5.0); Bilirubin Total 0.6 mg/dL (0.2-1.0); Hematocrit 36.1 % (36.0-45.0); Lymphocytes % 16.7 % (15.3-44.8); MCV 85.9 fL (80-100); MPV 7.7 fL (7.6-11.3); Potassium 3.5 mEq/L (3.5-5.1); Protein, Total 7.6 g/dL (6.4-8.2); RBC Red Blood Cell Count 4.21 M/uL (3.86-4.86)
[2022-12-05] MEDS ORDERED: ALBUTEROL 2.5 MG/3 ML NEB SOL NEB PRN ×2 (04:47→17:00)
[2022-12-05] MEDS ORDERED: ACETAMINOPHEN 500 MG TAB PO PRN (04:47)
[2022-12-05] MEDS ORDERED: ZOLPIDEM TARTRATE 5 MG TABLET PO PRN (04:47)
[2022-12-05] MEDS ORDERED: NA CHLORIDE 0.9% 1,000 ML IV SCH ×2 (05:00→06:00)
--- NOTE | 2022-12-05 05:01 | P.HP ---
Certification for Inpatient Patient admitted to: Inpatient With expected LOS: <2 Midnights Patient will require the following post-hospital care: None Practitioner: I am a practitioner with admitting privileges, knowledge of patient current condition, hospital course, and medical plan of care. Services: Services provided to patient in accordance with Admission requirements found in Title 42 Section 412.3 of the Code of Federal Regulations Patient History Date of Service: 12/05/22 Reason for admission: Shortness of breath History of Present Illness: 27-year-old female with past medical history of Anxiety, Abdominal pain with recent Lap Choley 12/01/22 who comes in with post op pain abdominal pain, and shortness of breath. She reports being discharged at today, she reports having shortness of breath post operatively. She reports intermittent fever, chills. Dhe denies nausea, productive cough, dizziness or syncope. ED evaluation, CT ABD Pelvis, awaiting report, Lung consolidation, fluid collection noted around surgical site. Lab elevated AST/ALT chronically elevated, less than previous admissions. AST 48, ALT 97, NA 133, CBC unremarkable, UA Leuk 350, 3+ blood, turbid Allergies ketorolac [From Toradol] Allergy (Verified 12/01/22 06:33) Hives/Rash metoclopramide [From Reglan] Allergy (Verified 12/01/22 06:33) Hives/Rash prochlorperazine [From Compazine] Allergy (Verified 12/01/22 06:33) Hives/Rash Home Medications: Escitalopram Oxalate [Lexapro] 10 mg PO DAILY #30 tab 12/04/22 hydrOXYzine HCL [Atarax*] 25 mg PO Q6HP PRN #30 tab 12/04/22 - Past Medical/Surgical History -: Bipolar Disorder -: Oppositional Defiant Disorder -: ADHD -: Anxiety -: -: tubal ligation -: Lap Choley 12/01/2022 - Social History Smoking Status: Never smoker Alcohol use: No CD- Drugs: No Caffeine use: Yes Review of Systems 10-point ROS is otherwise unremarkable Physical Examination - Physical Exam General: Alert, In no apparent distress, Oriented x3 HEENT: Atraumatic, Normocephalic, PERRLA Neck: Supple, 2+ carotid pulse no bruit, JVD not distended Respiratory: Clear to auscultation bilaterally, Normal air movement Cardiovascular: No edema, Normal pulses, Regular rate/rhythm, Normal S1 S2 Capillary refill: <2 Seconds Gastrointestinal: Hypoactive, Other (post surgical lap incisons CDI, Dry dressing, obese abdomen, Post op tendernesss, ) Musculoskeletal: No clubbing, No swelling Integumentary: No rashes, No breakdown Neurological: Normal speech, Normal strength at 5/5 x4 extr, Cranial nerves 3-12 intact - Studies Laboratory Data (last 24 hrs) 12/05/22 01:18: Sodium 133 L, Potassium 3.5, BUN 6 L, Creatinine 0.67, Glucose 106, Total Bilirubin 0.6, AST 48 H, ALT 97 H, Alkaline Phosphatase 184 H, Lipase 17 12/05/22 01:18: WBC 9.00, Hgb 12.1 D, Hct 36.1, Plt Count 362 Assessment and Plan - Plan Assessment/Plan S/P Lab Choley 12/01/22 Post op PNA transmitinitis Post op Abdominal pain Abnormal CT Acute Cystitis UA Leuk 350, 3+ blood, turbid Anxiety DVT proplx Assessment/Plan admit to med surg, tele Post op PNA IV ABX Zosyn, ICS, instructed to OOB to chair CBC unremarkable transmitinitis Post op Abdominal pain S/P Lab Choley 12/01/[address] waiting on report Prn analgesic, Consult Surgeon trend AST/ALT Acute Cystitis UA Leuk 350, 3+ blood, turbid IVF, IV Cipro Anxiety resume home meds DVT proplx lovenox Cardiac diet Full Code Discharge Plan: Home Plan to discharge in: 48 Hours - Advance Directives Does patient have a Living Will: No Does patient have a Durable POA for Healthcare: No - Code Status/Comfort Care Code Status: Full Code Physician Review: Patient Assessed, Agree with Above Assessment and Plan Critical Care: Yes Time Spent Managing Pts Care (In Minutes): 55
[2022-12-05 05:06] LABS: Specific Gravity 1.018 (1.005-1.030); Urine Bilirubin NEGATIVE (Negative); Urine Blood 3+ (OVER) (Negative); Urine Clarity Extremely Turbid (Clear); Urine Color Light-Orange (Yellow); Urine Glucose NEGATIVE (Negative); Urine Protein TRACE (Negative); Urine Urobilinogen 2+ (Normal)
[2022-12-05 05:35] VITALS: BMI 28.5
[2022-12-05] MEDS: PIPER TAZO 3.375 GM in NA CHLORIDE 0.9% 100 ML IV SCH ×3 (09:00→17:47)
[2022-12-05] MEDS: LACTOBACILLUS/ACIDOPHILUS TAB PO SCH (09:00)
[2022-12-05] MEDS ORDERED: CIPROFLOXACIN 400mg IV 400 MG/200 ML BAG IV SCH (09:00)
[2022-12-05] MEDS: HYDROCODONE/APAP 7.5/325 MG TAB PO PRN (09:34)
[2022-12-05] MEDS ORDERED: HYDROCODONE/APAP 7.5/325 MG TAB ONE (09:38)
[2022-12-05] MEDS ORDERED: CIPROFLOXACIN 400mg IV 400 MG/200 ML BAG IV ONE (09:39)
[2022-12-05] MEDS: HYDROMORPHONE HCL 1 MG/ML INJ IV PRN ×3 (11:24→20:33)
--- NOTE | 2022-12-05 12:32 | RAD REPORT ---
EXAM DESCRIPTION: CT - Chest For Pe Angio - 12/05/2022 7:16 am CLINICAL HISTORY: ABD PAIN TECHNIQUE: Axial computed tomographic angiography images of the chest with intravenous contrast. S agittal and coronal reformatted images were created and reviewed. This CT exam was performed using one or more of the following dose reduction techniques: automated exposure control, adjustment of t he mA and/or kV according to patient size, and/or use of iterative reconstruction technique. MIP reconstructed images were created and reviewed. COMPARISON: No relevant prior studies available. FINDINGS: Pulmonary arteries: Unremarkable. No pulmonary arterial filling defects. Aorta: No acute findings. No thoracic aortic aneurysm. Lungs: Minimal interstitial thickening and scattered patchy groundglass opacities bilaterally. Mu ltifocal linear subsegmental atelectasis. Mild to moderate right lower lobe consolidation. Pleural space: Trace bilateral pleural fluid, right greater than left. No pneumothorax. Heart: Unremarkable. No cardiomegaly. No significant pericardial effusion. No evidence of RV dysfunction. Bones/joints: No acute fracture. No dislocation. Soft tissues: Unremarkable. Lymph nodes: Unremarkable. No enlarged lymph nodes. * A single impression for all exams can be found at the end of this report EXAM DESCRIPTION: CT Abdomen and Pelvis With Intravenous Contrast CLINICAL HISTORY: ABD PAIN TECHNIQUE: Axial computed tomography images of the abdomen and pelvis with intravenous contrast. S agittal and coronal reformatted images were created and reviewed. This CT exam was performed using one or more of the following dose reduction techniques: automated exposure control, adjustment of t he mA and/or kV according to patient size, and/or use of iterative reconstruction technique. COMPARISON: CT Abdomen Pelvis dated 12/01/2022 FINDINGS: ABDOMEN: Liver: Unremarkable. No mass. Gallbladder and bile ducts: Interval cholecystectomy. Gas containing fluid collection in the gall bladder fossa measuring approximately 7.1 x 2.6 x 5.6 cm. Mild to moderate surrounding infiltrative changes. No ductal dilation. Pancreas: Unremarkable. No mass. No ductal dilation. Spleen: Unremarkable. No splenomegaly. Adrenals: Unremarkable. No mass. Kidneys and ureters: Partially duplicated left renal collecting system. Small right renal calculu s. Minimal fullness of the right renal collecting system. No ureteral calculi. Stomach and bowel: Moderate stool in the proximal to mid large bowel. No obstruction. No apprec iable mucosal thickening. PELVIS: Appendix: Normal caliber appendix. No findings to suggest acute appendicitis. Bladder: Unremarkable. No mass. Reproductive: Unremarkable as visualized. ABDOMEN and PELVIS: Intraperitoneal space: Small amount of free fluid in the pelvis. No free air. Bones/joints: No acute fracture. No dislocation. Soft tissues: Postsurgical changes in the right abdominal wall. Scattered abdominal wall port sit es. Lower ventral abdominal wall transverse incisional scar. Vasculature: Unremarkable. No abdominal aortic aneurysm. Lymph nodes: Unremarkable. No enlarged lymph nodes. * A single impression for all exams can be found at the end of this report IMPRESSION: CT Angiography Chest With Intravenous Contrast: 1. No pulmonary embolic disease. 2. Findings which may be related to mild pulmonary congestion. Superimposed infection not exclude d. 3. Right lower lobe consolidation (atelectasis and/or infiltrate). 4. Other findings as above. CT Abdomen and Pelvis With Intravenous Contrast: 1. Interval cholecystectomy. Gas containing fluid collection within the gallbladder fossa measuri ng approximately 7.1 x 2.6 x 5.6 cm. This may represent a developing abscess. An atypical appeari ng biloma or seroma with postoperative gas may also be considered. 2. Mild fullness of the right renal collecting system. No ureteral or bladder calculi. This finn earance is nonspecific and could represent physiologic fullness. Please correlate clinically for ur inary tract infection. 3. Other findings as above. THIS REPORT CONTAINS FINDINGS THAT MAY BE CRITICAL TO PATIENT CARE: The findings were verbally discus sed via telephone conference with Dr. Brodie Mota on 12/05/2022 3:58 AM CDT. The results were ack nowledged and understood. Electronically signed by: Hany Ramos MD 12/05/2022 4:00 AM CDT Due to temporary technical issues with the PACS/Fluency reporting system, reports are being signed by the in house radiologist without review as a courtesy to ensure prompt reporting. The interpreting r adiologist is fully responsible for the content of the report.
--- NOTE | 2022-12-05 12:39 | RAD REPORT ---
EXAM DESCRIPTION: CT - Abdomen Pelvis W Contrast - 12/05/2022 7:15 am CLINICAL HISTORY: ABD PAIN TECHNIQUE: Axial computed tomographic angiography images of the chest with intravenous contrast. S agittal and coronal reformatted images were created and reviewed. This CT exam was performed using one or more of the following dose reduction techniques: automated exposure control, adjustment of t he mA and/or kV according to patient size, and/or use of iterative reconstruction technique. MIP reconstructed images were created and reviewed. COMPARISON: No relevant prior studies available. FINDINGS: Pulmonary arteries: Unremarkable. No pulmonary arterial filling defects. Aorta: No acute findings. No thoracic aortic aneurysm. Lungs: Minimal interstitial thickening and scattered patchy groundglass opacities bilaterally. Mu ltifocal linear subsegmental atelectasis. Mild to moderate right lower lobe consolidation. Pleural space: Trace bilateral pleural fluid, right greater than left. No pneumothorax. Heart: Unremarkable. No cardiomegaly. No significant pericardial effusion. No evidence of RV dysfunction. Bones/joints: No acute fracture. No dislocation. Soft tissues: Unremarkable. Lymph nodes: Unremarkable. No enlarged lymph nodes. * A single impression for all exams can be found at the end of this report EXAM DESCRIPTION: CT Abdomen and Pelvis With Intravenous Contrast CLINICAL HISTORY: ABD PAIN TECHNIQUE: Axial computed tomography images of the abdomen and pelvis with intravenous contrast. S agittal and coronal reformatted images were created and reviewed. This CT exam was performed using one or more of the following dose reduction techniques: automated exposure control, adjustment of t he mA and/or kV according to patient size, and/or use of iterative reconstruction technique. COMPARISON: CT Abdomen Pelvis dated 12/01/2022 FINDINGS: ABDOMEN: Liver: Unremarkable. No mass. Gallbladder and bile ducts: Interval cholecystectomy. Gas containing fluid collection in the gall bladder fossa measuring approximately 7.1 x 2.6 x 5.6 cm. Mild to moderate surrounding infiltrative changes. No ductal dilation. Pancreas: Unremarkable. No mass. No ductal dilation. Spleen: Unremarkable. No splenomegaly. Adrenals: Unremarkable. No mass. Kidneys and ureters: Partially duplicated left renal collecting system. Small right renal calculu s. Minimal fullness of the right renal collecting system. No ureteral calculi. Stomach and bowel: Moderate stool in the proximal to mid large bowel. No obstruction. No apprec iable mucosal thickening. PELVIS: Appendix: Normal caliber appendix. No findings to suggest acute appendicitis. Bladder: Unremarkable. No mass. Reproductive: Unremarkable as visualized. ABDOMEN and PELVIS: Intraperitoneal space: Small amount of free fluid in the pelvis. No free air. Bones/joints: No acute fracture. No dislocation. Soft tissues: Postsurgical changes in the right abdominal wall. Scattered abdominal wall port sit es. Lower ventral abdominal wall transverse incisional scar. Vasculature: Unremarkable. No abdominal aortic aneurysm. Lymph nodes: Unremarkable. No enlarged lymph nodes. * A single impression for all exams can be found at the end of this report IMPRESSION: CT Angiography Chest With Intravenous Contrast: 1. No pulmonary embolic disease. 2. Findings which may be related to mild pulmonary congestion. Superimposed infection not exclude d. 3. Right lower lobe consolidation (atelectasis and/or infiltrate). 4. Other findings as above. CT Abdomen and Pelvis With Intravenous Contrast: 1. Interval cholecystectomy. Gas containing fluid collection within the gallbladder fossa measuri ng approximately 7.1 x 2.6 x 5.6 cm. This may represent a developing abscess. An atypical appeari ng biloma or seroma with postoperative gas may also be considered. 2. Mild fullness of the right renal collecting system. No ureteral or bladder calculi. This finn earance is nonspecific and could represent physiologic fullness. Please correlate clinically for ur inary tract infection. 3. Other findings as above. THIS REPORT CONTAINS FINDINGS THAT MAY BE CRITICAL TO PATIENT CARE: The findings were verbally discus sed via telephone conference with Dr. Brodie Mota on 12/05/2022 3:58 AM CDT. The results were ack nowledged and understood. Electronically signed by: Hany Ramos MD 12/05/2022 4:00 AM CDT Due to temporary technical issues with the PACS/Fluency reporting system, reports are being signed by the in house radiologist without review as a courtesy to ensure prompt reporting. The interpreting r adiologist is fully responsible for the content of the report.
--- NOTE | 2022-12-05 13:30 | CON ---
Date of Consultation: 12/05/2022 Reason For Consultation: Abdominal pain. History Of Present Illness: The patient is a 27-year-old female, who came to the emergency room with abdominal pain and some shortness of breath and low grade temperature. She was worked up in the ER and I was consulted. The patient recently last Saturday had a laparoscopic cholecystectomy with intr ahepatic gallbladder and Surgicel was placed in the gallbladder fossa to help mitigate venous blood o ozing recurring. On the CAT scan, it shows a collection that could be early abscess; however, white count is normal and she is not spiking temperatures at this time. She also has shortness of breath. She states that she uses incentive spirometry; however, she is not able to pull enough volume for ef fective incentive spirometry. She does not have productive cough, dizziness. No sore throat, runny nose, headaches, or chest pain at this time. Review of Systems: Otherwise unremarkable. The abdominal pain is in the right upper quadrant. Past Medical History: Severe anxiety, history of kidney stones. Past Surgical History: Recent cholecystectomy. Allergies: REVIEWED AND INCLUDE TORADOL, REGLAN, AND COMPAZINE. Social History: The patient denies smoking or drinking alcohol. Family History: Noncontributory. Medications: The patient was on Augmentin, [place], Lexapro, and Atarax at home as well as Colace. Physical Examination: Vital Signs: Stable. Currently, she is afebrile, T-max was 100.0 early in the morning. General: She is awake and alert. Some anxiety present. No acute distress seen. Head and Neck: No masses. Chest: Clear. Heart: S1 and S2. Abdomen: Soft. Mild right upper quadrant tenderness. No rebound, rigidity, or guarding. Wounds ar e clean, dry, and intact. Extremity: Adequately perfused, nontender. Neuro: Nonfocal. Laboratory Data: White count is 9000. There is a left shift. Chemistry reviewed. Her AST and ALT are 48 and 97, much improved from yesterday and the day before. Alk phos is a little elevated at 184 , total bilirubin is 0.6. Lipase is 70. CT of the abdomen and pelvis reviewed with the radiologist, essentially there is a small collection of fluid with air in the gallbladder fossa which is consiste nt with blood clot and Surgicel that was placed during surgery. There are no other acute findings in the abdomen. On the chest, there is, however, atelectasis and possible infiltrate in the right lowe r lobe. Assessment: A 27-year-old female, status post laparoscopic cholecystectomy with anxiety, discharged yesterday, and returns to the emergency room with abdominal pain and shortness of breath. Recommendations: Admit, IV fluids, empiric antibiotics. Encourage incentive spirometry, ambulation, parenteral pain management, and antianxiety medicine per the hospitalist team. At this time, there is no urgent need for any surgical or IR intervention. The CAT scan was discussed in detail with Dr. Dey. Plan of care was discussed with Dr. Buenrostro. DIOGO/LUNA Voice ID: [id number] Report ID: [id number]
[2022-12-05] MEDS: ONDANSETRON 4 MG/2 ML VIAL IV PRN (15:50)
[2022-12-05] MEDS ORDERED: ALPRAZOLAM 0.5 MG TABLET PO PRN (16:34)
[2022-12-05] MEDS ORDERED: METRONIDAZOLE 500mg IVPB 500 MG/100 ML BAG IV SCH (17:00)
[2022-12-05] MEDS: NA CHLORIDE 0.9% 1,000 ML IV SCH (17:34)
[2022-12-06] MEDS: HYDROMORPHONE HCL 1 MG/ML INJ IV PRN ×6 (01:07→20:35)
[2022-12-06] MEDS: PIPER TAZO 3.375 GM in NA CHLORIDE 0.9% 100 ML IV SCH ×3 (01:07→17:11)
[2022-12-06] MEDS: ONDANSETRON 4 MG/2 ML VIAL IV PRN ×2 (01:07→21:18)
[2022-12-06 06:31] LABS: Absolute Lymphocytes (CBC) 1.3 K/uL (0.7-4.9); Hematocrit 31.3 % (36.0-45.0); Lymphocytes % 19.9 % (15.3-44.8); MCV 86.1 fL (80-100); MPV 7.5 fL (7.6-11.3); RBC Red Blood Cell Count 3.64 M/uL (3.86-4.86)
[2022-12-06 06:50] LABS: Albumin 2.6 g/dL (3.4-5.0); Bilirubin Direct 0.2 mg/dL (0-0.2); Bilirubin Indirect, Calculated 0.3 mg/dL (0.2-0.8); Bilirubin Total 0.5 mg/dL (0.2-1.0); Magnesium 1.7 mg/dL (1.6-2.4); Potassium 3.7 mEq/L (3.5-5.1); Protein, Total 6.4 g/dL (6.4-8.2)
[2022-12-06] MEDS ORDERED: MAGNESIUM SULFATE 1 gm IVPB 1 GM/100 ML BAG IV ONE (08:04)
[2022-12-06] MEDS ORDERED: POTASSIUM 25 MEQ EFFERV TAB PO ONE (08:06)
--- NOTE | 2022-12-06 08:23 | RAD REPORT ---
EXAM DESCRIPTION: RAD - Chest Single View - 12/06/2022 4:39 am CLINICAL HISTORY: pneumonia Chest pain. COMPARISON: Abdomen 1 View (KUB) dated 12/02/2022; Chest Pa And Lat (2 Views) dated 11/17/2022; Chest S vee View dated 10/23/2022; Chest Single View dated 01/26/2022; Chest For Pe Angio dated 12/05/2022 FINDINGS: Portable technique limits examination quality. Mild linear opacities in both lung bases likely represents subsegmental atelectasis. The heart is nor mal in size. No displaced fractures. IMPRESSION: Mild atelectasis in both lung bases.
[2022-12-06] MEDS: LACTOBACILLUS/ACIDOPHILUS TAB PO SCH (08:52)
[2022-12-06] MEDS ORDERED: BISACODYL E.C. 5 MG TAB PO PRN (09:04)
--- NOTE | 2022-12-06 10:57 | PN ---
Date of Progress Note: 12/06/2022 Subjective: The patient is complaining of a blister on the right side of her abdomen as well as cons tipation. No nausea or vomiting. Tolerating her diet. Still complaining of pain in the right upper quadrant, right lower lobe area. Objective: Vital Signs: Stable. She is currently afebrile. Abdomen: Benign. She does have a blister approximately 2 cm on the lateral wound. There is no surr ounding erythema, warmth, or edema; however, prior reaction to the Steri-Strips. The patient is stil l little anxious about going home because of the pain. Laboratory Data: Reviewed. Assessment: Status post laparoscopic cholecystectomy with severe anxiety, constipation currently. Recommendations: We will start her with mild laxative. If that does not work, she will need a suppo sitory. Continue current pain management and anti-anxiety medication as ordered. Discharge hopefull y in 24 hours. DIOGO/LUNA Voice ID: [id number] Report ID: [id number]
[2022-12-06] MEDS: NA CHLORIDE 0.9% 1,000 ML IV SCH (20:35)
[2022-12-07] MEDS: HYDROMORPHONE HCL 1 MG/ML INJ IV PRN ×4 (00:10→11:30)
[2022-12-07 01:11] VITALS: O2SAT 99
[2022-12-07] MEDS: PIPER TAZO 3.375 GM in NA CHLORIDE 0.9% 100 ML IV SCH ×2 (01:18→08:39)
[2022-12-07 03:50] LABS: Absolute Lymphocytes (CBC) 1.6 K/uL (0.7-4.9); Hematocrit 33.1 % (36.0-45.0); Lymphocytes % 18.7 % (15.3-44.8); MCV 86.8 fL (80-100); MPV 7.6 fL (7.6-11.3); RBC Red Blood Cell Count 3.82 M/uL (3.86-4.86)
[2022-12-07 04:02] LABS: Magnesium 1.9 mg/dL (1.6-2.4); Potassium 3.4 mEq/L (3.5-5.1)
[2022-12-07] MEDS: HYDROCODONE/APAP 7.5/325 MG TAB PO PRN (05:49)
[2022-12-07] MEDS: NA CHLORIDE 0.9% 1,000 ML IV SCH (08:34)
[2022-12-07] MEDS: LACTOBACILLUS/ACIDOPHILUS TAB PO SCH (08:39)
[2022-12-07 08:42] VITALS: BP 141/86; TEMP 96.9
[2022-12-07] MEDS ORDERED: POTASSIUM CL 40 MEQ in NA CHLORIDE 0.9% 500 ML IV SCH (09:00)
--- NOTE | 2022-12-07 11:10 | P.PN ---
Date of Service: 12/06/22 Subjective Pt is doing well with no new complaints Physical Examination - Vitals reviewed - Physical Exam General: Alert, In no apparent distress, Oriented x3 Respiratory: Clear to auscultation bilaterally Cardiovascular: Regular rate/rhythm Gastrointestinal: Hypoactive, post surgical lap incisons CDI, Dry dressing, obese abdomen, Post op tendernesss Musculoskeletal: No clubbing, No swelling Integumentary: No rashes, No breakdown Neurological: No focal deficits Assessment and Plan - Assesment Assessment/Plan S/P Lab Vandana 12/01/22 Post op Abdominal pain Anxiety - Plan Assessment/Plan 1. Continue with antibiotics 2. Patient having postop pain but otherwise there is unlikely to have pneumonia as her procalcitonin level is negative. Unlikely to have any significant infection. She most likely has atelectasis and she has been given an incentive spirometer. She can continue with pain control and DVT prophylaxis as she needs to walk around more than she has been in the hospital. And she has anxiety disorder for which she will give her Xanax and Lexapro at discharge. At this time patient is doing well and anticipate discharge home in the morning.
--- NOTE | 2022-12-07 11:13 | P.DS ---
Discharge Date: 12/07/22 Disposition: ROUTINE DISCHARGE Discharge Condition: GOOD Reason for Admission: Shortness of breath Brief History of Present Illness: Pt is a 27-year-old female with past medical history of Anxiety, Abdominal pain with recent laparoscopic cholecystectomy on 12/01/22 who comes in with post- op abdominal pain, and shortness of breath. She reports being discharged at 1p today, she reports having shortness of breath post operatively. She reports intermittent fever, chills. She denies nausea, productive cough, dizziness or syncope. Patient had atelectasis and a negative procalcitonin level. She was admitted to the hospital for better control of her abdominal pain and her anxiety disorder. Hospital Course: Clinically doing well and at this time patient is stable for discharge home. Continue with pain control and anxiolytics. Patient follow-up with general surgery and psychiatry. Vital Signs/Physical Exam: Temp Pulse Resp BP Pulse Ox 96.9 F 80 16 141/86 H 96 12/07/22 08:00 12/07/22 08:00 12/07/22 08:00 12/07/22 08:00 12/07/22 08:00 General: Alert, In no apparent distress, Oriented x3 Laboratory Data at Discharge: WBC 8.60 thou/uL (4.3-10.9) 12/07/22 02:52 Hgb 11.1 g/dL (12.0-15.0) L 12/07/22 02:52 Hct 33.1 % (36.0-45.0) L 12/07/22 02:52 Plt Count 354 thou/uL (152-406) 12/07/22 02:52 Sodium 134 mEq/L (136-145) L 12/07/22 02:52 Potassium 3.4 mEq/L (3.5-5.1) L 12/07/22 02:52 BUN 4 mg/dL (7-18) L 12/07/22 02:52 Creatinine 0.68 mg/dL (0.55-1.02) 12/07/22 02:52 Glucose 96 mg/dL (74-106) 12/07/22 02:52 Magnesium 1.9 mg/dL (1.6-2.4) 12/07/22 02:52 Total Bilirubin 0.5 mg/dL (0.2-1.0) 12/06/22 06:04 AST 46 U/L (15-37) H 12/06/22 06:04 ALT 75 U/L (13-56) H 12/06/22 06:04 Alkaline Phosphatase 222 U/L (45-117) H 12/06/22 06:04 Lipase 17 U/L (13-75) 12/05/22 01:18 Home Medications: Escitalopram Oxalate [Lexapro] 10 mg PO DAILY #30 tab 12/04/22 ALPRAZolam [Xanax*] 0.5 mg PO Q12HP PRN #30 tab 12/07/22 Amox/Clavulanate [Augmentin 875-125 Tab] 1 each PO BID #10 tab 12/07/22 New Medications: Amox/Clavulanate [Augmentin 875-125 Tab] 1 each PO BID #10 tab ALPRAZolam [Xanax*] 0.5 mg PO Q12HP PRN #30 tab PRN Reason: Anxiety Physician Discharge Instructions: OK TO DC IV AND DC HOME FOLLOW-UP WITH PRIMARY CARE PROVIDER IN 1-2 WEEKS FOLLOW-UP WITH Surgery IN 1-2 WEEKS RETURN TO THE ER IF symptoms worsen CALL DR. MENSAH AT [phone] IF ANY QUESTIONS REGARDING HOSPITAL STAY. PLEASE CALL THE FLOOR AT [phone] IF ANY MEDICATION OR NURSING QUESTIONS. Diet: Regular Activity: Fall precautions Time spent managing pt's care (in minutes): 35
--- NOTE | 2022-12-07 17:15 | PN ---
Date of Progress Note: 12/07/2022 Subjective: The patient is awake and alert. Feels much better. Tolerating diet. Pain is better. Objective: Vital Signs: Stable. Afebrile. Abdomen: Benign. Laboratory Data: Reviewed. Assessment: Status post laparoscopic cholecystectomy with atelectasis and anxiety. Recommendation: Patient cleared from Surgery standpoint for discharge. Follow up with me next week. Call for appointment. Prescriptions have been given and discharge instructions have been given. DIOGO/LUNA Voice ID: [id number] Report ID: [id number]
== END 2022-12-07 13:55 | disposition home or self-care (01) | DRG 948 ==
LOC: ER 00:48 → ERHOLD 04:40 → 4TH 10:00
PROVIDERS: ADMIT Hospitalist; ATTEND Hospitalist
DX: G89.18 Other acute postprocedural pain (principal); J98.11 Atelectasis; N30.00 Acute cystitis without hematuria; F41.9 Anxiety disorder, unspecified; K59.00 Constipation, unspecified; Z88.5 Allergy status to narcotic agent; Z88.8 Allergy status to other drugs, medicaments and biological substances; Z98.51 Tubal ligation status; Z90.49 Acquired absence of other specified parts of digestive tract; Z28.310 Unvaccinated for COVID-19; Z79.899 Other long term (current) drug therapy
CPT/HCPCS: 36415; 71045; 71275; 74177; 80048; 80053; 80076; 81003; 81025; 83690; 83735; 84145; 85025; 87040; 99285; J0744; J1170; J2405; J2543; J3475; J3480; J7030; J7040; J7050; Q9967

== ENCOUNTER 2022-12-19 04:16 | Emergency (ER) | payer OTHER ==
--- OUTSIDE RECORDS SUMMARY | 2022-12-19 04:34 | XMS REPORT | Continuity of Care Document ---
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 QUEtiapine 2023-0 Yes [facility] 400 mg 2-17 ity of tablet 00:00: [place] 00 [facility] gabapentin 2023-0 Yes [facility] 600 mg 2-17 ity of tablet 00:00: [place] 00 [facility] citalopram 2023-0 Yes 10mg Take 1 [facility] rs 10 mg 2-17 tablet by ity of tablet 00:00: mouth in [place] the Medical morning. Branch QUEtiapine 2023-0 Yes [facility] 400 mg 2-17 ity of tablet 00:00: [place] 00 [facility] gabapentin 2023-0 Yes [facility] 600 mg 2-17 ity of tablet 00:00: [place] [facility] citalopram 2023-0 Yes 10mg Take 1 [facility] rs 10 mg 2-17 tablet by ity of tablet 00:00: mouth in [place] the Medical morning. Branch QUEtiapine 2023-0 Yes [facility] 400 mg 2-17 ity of tablet 00:00: [place] 00 [facility] gabapentin 2023-0 Yes [facility] 600 mg 2-17 ity of tablet 00:00: [place] [id number] [facility] Branch citalopram 2023-0 Yes 10mg Take 1 Un[facility] rs 10 mg 2-17 tablet by ity of tablet 00:00: mouth in [place] the Medical morning. Branch QUEtiapine 2023-0 Yes [facility] 400 mg 2-17 ity of tablet 00:00: [place] [address] [facility] Branch gabapentin 2023-0 Yes [facility] 600 mg 2-17 ity of tablet 00:00: [place] [address] [facility] Branch citalopram 2023-0 Yes 10mg Take 1 [facility] rs 10 mg 2-17 tablet by ity of tablet 00:00: mouth in [place] the Medical morning. Branch QUEtiapine 2023-0 Yes [facility] 400 mg 2-17 ity of tablet 00:00: [place] [address] [facility] Branch gabapentin 2023-0 Yes [facility] 600 mg 2-17 ity of tablet 00:00: [place] [address] Medical Branch methylPREDN 2023-0 Yes [id number] Take by [facility] ISolone 2-11 mouth ity of (MEDROL, 00:00: SEE-INSTRU [place] ANABELA,) 4 mg 00 CTIONS. Medica l tablets follow Branch package directions methylPREDN 2023-0 Yes [id number] Take by [facility] ISolone 2-11 mouth ity of (MEDROL, 00:00: SEE-INSTRU [place] ANABELA,) 4 mg 00 CTIONS. Medica l tablets follow Branch package directions methylPREDN 2023-0 Yes [id number] Take by [facility] ISolone 2-11 mouth ity of (MEDROL, 00:00: SEE-INSTRU [place],) 4 mg 00 CTIONS. Medica l tablets follow Branch package directions methylPREDN 2023-0 Yes [id number] Take by [facility] ISolone 2-11 mouth ity of (MEDROL, 00:00: SEE-INSTRU [place],) 4 mg 00 CTIONS. Medica l tablets follow Branch package directions methylPREDN 2023-0 Yes [id number] Take by [facility] ISolone 2-11 mouth ity of (MEDROL, 00:00: SEE-INSTRU [place],) 4 mg 00 CTIONS. Medica l tablets follow Branch package directions methylPREDN 2023-0 Yes [id number] Take by [facility] ISolone 2-11 mouth ity of (MEDROL, 00:00: SEE-INSTRU [place],) 4 mg 00 CTIONS. Medica l tablets follow Branch package directions methylPREDN 2023-0 Yes [id number] Take by [facility] ISolone 2-11 mouth ity of (MEDROL, 00:00: SEE-INSTRU [place],) 4 mg 00 CTIONS. Medica l tablets follow Branch package directions methylPREDN 2023-0 Yes [id number] Take by [facility] ISolone 2-11 mouth ity of (MEDROL, 00:00: SEE-INSTRU [place]A,) 4 mg 00 CTIONS. Medica l tablets follow Branch package directions methylPREDN 2023-0 Yes [id number] Take by [facility] ISolone 2-11 mouth ity of (MEDROL, 00:00: SEE-INSTRU [place],) 4 mg 00 CTIONS. Medica l tablets follow Branch package directions methylPREDN 2023-0 Yes [id number] Take by [facility] ISolone 2-11 mouth ity of (MEDROL, 00:00: SEE-INSTRU [place],) 4 mg 00 CTIONS. Medica l tablets follow Branch package directions methylPREDN 2023-0 Yes [id number] Take by [facility] ISolone 2-11 mouth ity of (MEDROL, 00:00: SEE-INSTRU [place],) 4 mg 00 CTIONS. Medica l tablets follow Branch package directions methylPREDN 2023-0 Yes [id number] Take by [facility] ISolone 2-11 mouth ity of (MEDROL, 00:00: SEE-INSTRU [place],) 4 mg 00 CTIONS. Medica l tablets follow Branch package directions methylPREDN 2023-0 Yes [id number] Take by [facility] ISolone 2-11 mouth ity of (MEDROL, 00:00: SEE-INSTRU [place],) 4 mg 00 CTIONS. Medica l tablets follow Branch package directions methylPREDN Yes [id number] Take by [facility] ISolone 06-23 mouth ity of (MEDROL, 00:00: SEE-INSTRU [place]NABELA,) 4 mg 00 CTIONS. Medica l tablets follow Branch package directions bromphenira 2022- No [id number] 5mL Take 5 mL Univers mine-pseudo 06-23 by mouth 4 i ty of ephedrine-D 00:00: 05:59 (four) [place] (BROMFED 00 :00 times Medical DM) 230-10 daily as Bran ch mg/5 mL needed for syrup Cold symptoms for up to 10 days. methocarbam 2022- No [id number] 750mg Take 1 [facility] oL 750 mg 06-23 [id number] tablet by it y of tablet 00:00: 05:59 mouth 4 [place] 00 :00 (four) Medical times Branch daily for 7 days. magnesium 2021-05- No 2g 2 g, IV Univ ers sulfate in 07-06-24 Piggyback, it y of water 2 21:00: 21:15 Administer [place] as gram/50 mL 00 :00 over 15 Medica l (4 %) Minutes, Branch infusion 2 ONCE, 1 g dose, On 05/05/22 at 1500, [place] butalbital- 2021-05- No 1{tbl} 1 tablet, [facility] acetaminoph 07-06- Oral, ity of en-caff 20:15: 20:56 ONCE, 1 [place] (ESGIC) 00 :00 dose, On Medical 50-325-40 Sat Branch mg tablet 1 05/05/22 tablet at 1415, [place] dexamethaso 2021-05- No 10mg 10 mg, Uni vers ne sod phos 07-06 12-24 Slow IV ity of PF 20:15: [...] No 30mg 30 mg, Unive rs (TORADOL) 205-05 Slow IV ity of injection 19:15: 19:44 Push, [place] 30 mg 00 :00 ONCE, 1 Medical dose, On Branch 05/05/22 at 1315, Routine butalbital- 2021-05 Yes [id number] 1{tbl} Take 1 [facility] acetaminoph 2-24 tablet by ity of en-caff 00:00: mouth [place] 50-325-40 00 every 4 Medical mg tablet (four) Branch hours as needed for Pain (scale 7-10). butalbital- 2021-05 Yes [id number] 1{tbl} Take 1 [facility] acetaminoph 2-24 tablet by ity of en-caff 00:00: mouth [place] 50-325-40 00 every 4 Medical mg tablet (four) Branch hours as needed for Pain (scale 7-10). butalbital- 2021-05 Yes [id number] 1{tbl} Take 1 [facility] acetaminoph 2-24 tablet by ity of en-caff 00:00: mouth [place] 50-325-40 00 every 4 Medical mg tablet (four) Branch hours as needed for Pain (scale 7-10). butalbital- 2021-05 Yes [id number] 1{tbl} Take 1 [facility] acetaminoph 2-24 tablet by ity of en-caff 00:00: mouth [place] 50-325-40 00 every 4 Medical mg tablet (four) Branch hours as needed for Pain (scale 7-10). butalbital- 2021-05 Yes [id number] 1{tbl} Take 1 [facility] acetaminoph 2-24 tablet by ity of en-caff 00:00: mouth [place] 50-325-40 00 every 4 Medical mg tablet (four) Branch hours as needed for Pain (scale 7-10). butalbital- 2021-05 Yes [id number] 1{tbl} Take 1 [facility] acetaminoph 2-24 tablet by ity of en-caff 00:00: mouth [place] 50-325-40 00 every 4 Medical mg tablet (four) Branch hours as needed for Pain (scale 7-10). butalbital- 2021-05 Yes [id number] 1{tbl} Take 1 [facility] acetaminoph 2-24 tablet by ity of en-caff 00:00: mouth [place] 50-325-40 00 every 4 Medical mg tablet (four) Branch hours as needed for Pain (scale 7-10). butalbital2021-05 Yes [id number] 1{tbl} Take 1 [facility] acetaminoph 2-24 tablet by ity of en-caff 00:00: mouth [place] 50-325-40 00 every 4 Medical mg tablet (four) Branch hours as needed for Pain (scale 7-10). butalbital2021-05 Yes [id number] 1{tbl} Take 1 [facility] acetaminoph 2-24 tablet by ity of en-caff 00:00: mouth [place] 50-325-40 00 every 4 Medical mg tablet (four) Branch hours as needed for Pain (scale 7-10). butalbital2021-05 Yes [id number] 1{tbl} Take 1 [facility] acetaminoph 2-24 tablet by ity of en-caff 00:00: mouth [place] 50-325-40 00 every 4 Medical mg tablet (four) Branch hours as needed for Pain (scale 7-10). butalbital2021-05 Yes [id number] 1{tbl} Take 1 [facility] acetaminoph 2-24 tablet by ity of en-caff 00:00: mouth [place] 50-325-40 00 every 4 Medical mg tablet (four) Branch hours as needed for Pain (scale 7-10). butalbital2021-05 Yes [id number] 1{tbl} Take 1 [facility] acetaminoph 2-24 tablet by ity of en-caff 00:00: mouth [place] 50-325-40 00 every 4 Medical mg tablet (four) Branch hours as needed for Pain (scale 7-10). butalbital2021-05 Yes [id number] 1{tbl} Take 1 [facility] acetaminoph 2-24 tablet by ity of en-caff 00:00: mouth [place] 50-325-40 00 every 4 Medical mg tablet (four) Branch hours as needed for Pain (scale 7-10). butalbital2021-05 Yes [id number] 1{tbl} Take 1 [facility] acetaminoph 2-24 tablet by ity of en-caff 00:00: mouth [place] 50-325-40 00 every 4 Medical mg tablet (four) Branch hours as needed for Pain (scale 7-10). butalbital2021-05 Yes [id number] 1{tbl} Take 1 [facility] acetaminoph 2-24 tablet by ity of en-caff 00:00: mouth [place] 50-325-40 00 every 4 Medical mg tablet (four) Branch hours as needed for Pain (scale 7-10). butalbital2021-05 Yes [id number] 1{tbl} Take 1 [facility] acetaminoph 2-24 tablet by ity of en-caff 00:00: mouth [place] 50-325-40 00 every 4 Medical mg tablet (four) Branch hours as needed for Pain (scale 7-10). HYDROcodone 2021-05 No 1{tbl} 1 tablet, Univers -acetaminop 2-15 [...] :00 dose, On Medi yessi mg [facility] Branch 04/26/22 at 0845, Routine cephALEXin 2021-05 No [id number] 500mg Take 1 Univers (KEFLEX) 2-15 05-04 [...] Nausea and Vomiting (N/V). galcanezuma 2021-05 Yes [id number] 120mg inject 120 Univers b-gnlm 1-28 mg under ity of prefilled 00:00: [place] (EMGALITY) 00 once every Med ical subcutaneou month. Branch s injection galcanezuma 2021-05 Yes [id number] 120mg inject 120 [facility] b-gnlm 1-28 mg under ity of prefilled 00:00: [place] (EMGALITY) 00 once every Med ical subcutaneou month. Branch s injection galcanezuma 2021-05 Yes [id number] 120mg inject 120 [facility] b-gnlm 1-28 mg under ity of prefilled 00:00: [place] (EMGALITY) 00 once every Med ical subcutaneou month. Branch s injection galcanezuma 2021-05 Yes [id number] 120mg inject 120 [facility] b-gnlm 1-28 mg under ity of prefilled 00:00: [place] (EMGALITY) 00 once every Med ical subcutaneou month. Branch s injection galcanezuma 2021-05 Yes [id number] 120mg inject 120 [facility] b-gnlm 1-28 mg under ity of prefilled 00:00: [place] (EMGALITY) 00 once every Med ical subcutaneou month. Branch s injection galcanezuma 2021-05 Yes [id number] 120mg inject 120 [facility] b-gnlm 1-28 mg under ity of prefilled 00:00: [place] (EMGALITY) 00 once every Med ical subcutaneou month. Branch s injection galcanezuma 2021-05 Yes [id number] 120mg inject 120 [facility] b-gnlm 1-28 mg under ity of prefilled 00:00: [place] (EMGALITY) 00 once every Med ical subcutaneou month. Branch s injection galcanezuma 2021-05 Yes [id number] 120mg inject 120 [facility] b-gnlm 1-28 mg under ity of prefilled 00:00: [place] (EMGALITY) 00 once every Med ical subcutaneou month. Branch s injection galcanezuma 2021-05 Yes [id number] 120mg inject 120 [facility] b-gnlm 1-28 mg under ity of prefilled 00:00: [place] (EMGALITY) 00 once every Med ical subcutaneou month. Branch s injection galcanezuma 2021-05 Yes [id number] 120mg inject 120 [facility] b-gnlm 1-28 mg under ity of prefilled 00:00: [place] (EMGALITY) 00 once every Med ical subcutaneou month. Branch s injection galcanezuma 2021-05 Yes [id number] 120mg inject 120 [facility] b-gnlm 1-28 mg under ity of prefilled 00:00: [place] (EMGALITY) 00 once every Med ical subcutaneou month. Branch s injection galcanezuma 2021-05 Yes [id number] 120mg inject 120 [facility] b-gnlm 1-28 mg under ity of prefilled 00:00: [place] (EMGALITY) 00 once every Med ical subcutaneou month. Branch s injection galcanezuma 2021-05 Yes [id number] 120mg inject 120 [facility] b-gnlm 1-28 mg under ity of prefilled 00:00: [place] (EMGALITY) 00 once every Med ical subcutaneou month. Branch s injection galcanezuma 2021-05 Yes [id number] 120mg inject 120 [facility] b-gnlm 1-28 mg under ity of prefilled 00:00: [place] (EMGALITY) 00 once every Med ical subcutaneou month. Branch s injection galcanezuma 2021-05 Yes [id number] 120mg inject 120 [facility] b-gnlm 1-28 mg under ity of prefilled 00:00: [place] (EMGALITY) 00 once every Med ical subcutaneou month. Branch s injection galcanezuma 2021-05 Yes [id number] 120mg inject 120 [facility] b-gnlm 1-28 mg under ity of prefilled 00:00: [place] (EMGALITY) 00 once every Med ical subcutaneou month. Branch s injection galcanezuma 2021-05 Yes [id number] 120mg inject 120 [facility] b-gnlm 1-28 mg under ity of prefilled 00:00: [place] (EMGALITY) 00 once every Med ical subcutaneou month. Branch s injection galcanezuma 2021-05 Yes [id number] 120mg inject 120 [facility] b-gnlm 1-28 mg under ity of prefilled 00:00: [place] (EMGALITY) 00 once every Med ical subcutaneou month. Branch s injection galcanezuma 2021-05 Yes [id number] 120mg inject 120 [facility] b-gnlm 1-28 mg under ity of prefilled 00:00: the [place] (EMGALITY) 00 once every Med ical subcutaneou month. Branch s injection galcanezuma 2021-05 Yes [id number] 120mg inject 120 [facility] b-gnlm 1-28 mg under ity of prefilled 00:00: [place] (EMGALITY) 00 once every Med ical subcutaneou month. Branch s injection galcanezuma 2021-05 Yes [id number] 120mg inject 120 [facility] b-gnlm 1-28 mg under ity of prefilled 00:00: [place] (EMGALITY) 00 once every Med ical subcutaneou month. Branch s injection galcanezuma 2021-05 Yes [id number] 120mg inject 120 [facility] b-gnlm 1-28 mg under ity of prefilled 00:00: [place] (EMGALITY) 00 once every Med ical subcutaneou month. Branch s injection galcanezuma 2021-05 Yes [id number] 120mg inject 120 [facility] b-gnlm 1-28 mg under ity of prefilled 00:00: the [place] (EMGALITY) 00 once every Med ical subcutaneou month. Branch s injection galcanezuma 2021-05 Yes [id number] 120mg inject 120 [facility] b-gnlm 1-28 mg under ity of prefilled 00:00: the [place] (EMGALITY) 00 once every Med ical subcutaneou month. Branch s injection galcanezuma 2021-05 Yes [id number] 120mg inject 120 [facility] b-gnlm 1-28 mg under ity of prefilled 00:00: the [place] (EMGALITY) 00 once every Med ical subcutaneou month. Branch s injection galcanezuma 2021-05 Yes [id number] 120mg inject 120 [facility] b-gnlm 1-28 mg under ity of prefilled 00:00: the [place] (EMGALITY) 00 once every Med ical subcutaneou month. Branch s injection galcanezuma 2021-05 Yes [id number] 120mg inject 120 [facility] b-gnlm 1-28 mg under ity of prefilled 00:00: the [place] (EMGALITY) 00 once every Med ical subcutaneou month. Branch s injection galcanezuma 2021-05 Yes [id number] 120mg inject 120 [facility] b-gnlm 1-28 mg under ity of prefilled 00:00: the [place] (EMGALITY) 00 once every Med ical subcutaneou month. Branch s injection galcanezuma 2021-05 Yes [id number] 120mg inject 120 [facility] b-gnlm 1-28 mg under ity of prefilled 00:00: the [place] (EMGALITY) 00 once every Med ical subcutaneou month. Branch s injection galcanezuma 2021-05 Yes [id number] 120mg inject 120 [facility] b-gnlm 1-28 mg under ity of prefilled 00:00: the [place] (EMGALITY) 00 once every Med ical subcutaneou month. Branch s injection galcanezuma 2021-05 Yes [id number] 120mg inject 120 [facility] b-gnlm 1-28 mg under ity of prefilled 00:00: the [place] (EMGALITY) 00 once every Med ical subcutaneou month. Branch s injection methocarbam 2021-05 Yes 1000mg 1,000 mg, Univers oL 06-08 Intravenou ity of (ROBAXIN) 04:00: s, Q8H, [place] injection 00 First dose Medi yessi 1,000 mg on Sat [place] 04/07/22 at 2200, Until Discontinu ed, Routine [...] Branch tablet 04/07/22 at 1830, Routine diphenhydrA 2021-05 No 12.5mg 12.5 mg, Univers MINE 06-07 [...] 0815, STAT ALBUTEROL 2021-05 No [facility] INHALE -12 12 ity of 07:58: 00:00 [place] 13 :00 Medical Branch rizatriptan 2021-05 Yes [id number] 10mg Take 1 Univers 10 mg 1-12 tablet by ity of tablet 00:00: mouth as [place] 00 needed for Medical Migraine. Branch May repeat in 2 hours if needed Butalbital- 2021-05 Yes [id number] 1{capsu Take 1 Univers Acetaminoph 1-12 le} [...] daily. Indication s: headache rizatriptan 2021-05 Yes [id number] 10mg Take 1 [facility] 10 mg 1-12 tablet by ity of tablet 00:00: mouth as [place] 00 needed for Medical Migraine. Branch May repeat in 2 hours if needed Butalbital- 2021-05 Yes [id number] 1{capsu Take 1 [facility] Acetaminoph 1-12 le} [...] daily. Indication s: headache rizatriptan 2021-05 Yes [id number] 10mg Take 1 [facility] 10 mg 1-12 tablet by ity of tablet 00:00: mouth as [place] 00 needed for Medical Migraine. Branch May repeat in 2 hours if needed Butalbital- 2021-05 Yes [id number] 1{capsu Take 1 [facility] Acetaminoph 1-12 le} [...] daily. Indication s: headache rizatriptan 2021-05 Yes [id number] 10mg Take 1 [facility] 10 mg 1-12 tablet by ity of tablet 00:00: mouth as [place] 00 needed for Medical Migraine. Branch May repeat in 2 hours if needed Butalbital- 2021-05 Yes [id number] 1{capsu Take 1 [facility] Acetaminoph 1-12 le} capsule by it y of en-Caff 00:00: mouth [place] (FIORICET) 00 every 6 Medica l 50-300-40 (six) Branch mg per hours as capsule needed for Other (headache) . rizatriptan 2021-05 Yes [id number] 10mg Take 1 [facility] 10 mg 1-12 tablet by ity of tablet 00:00: mouth as [place] 00 needed for Medical Migraine. Branch May repeat in 2 hours if needed Butalbital- 2021-05 Yes [id number] 1{capsu Take 1 [facility] Acetaminoph 1-12 le} capsule by it y of en-Caff 00:00: mouth [place] (FIORICET) 00 every 6 Medica l 50-300-40 (six) Branch mg per hours as capsule needed for Other (headache) . rizatriptan 2021-05 Yes [id number] 10mg Take 1 [facility] 10 mg 1-12 tablet by ity of tablet 00:00: mouth as [place] 00 needed for Medical Migraine. Branch May repeat in 2 hours if needed Butalbital- 2021-05 Yes [id number] 1{capsu Take 1 [facility] Acetaminoph 1-12 le} capsule by it y of en-Caff 00:00: mouth [place] (FIORICET) 00 every 6 Medica l 50-300-40 (six) Branch mg per hours as capsule needed for Other (headache) . rizatriptan 2021-05 Yes [id number] 10mg Take 1 [facility] 10 mg 1-12 tablet by ity of tablet 00:00: mouth as [place] 00 needed for Medical Migraine. Branch May repeat in 2 hours if needed Butalbital- 2021-05 Yes [id number] 1{capsu Take 1 [facility] Acetaminoph 1-12 le} capsule by it y of en-Caff 00:00: mouth [place] (FIORICET) 00 every 6 Medica l 50-300-40 (six) Branch mg per hours as capsule needed for Other (headache) . rizatriptan 2021-05 Yes [id number] 10mg Take 1 [facility] 10 mg 1-12 tablet by ity of tablet 00:00: mouth as [place] 00 needed for Medical Migraine. Branch May repeat in 2 hours if needed Butalbital- 2021-05 Yes [id number] 1{capsu Take 1 Univers Acetaminoph 1-12 le} capsule by it y of en-Caff 00:00: mouth [place] (FIORICET) 00 every 6 Medica l 50-300-40 (six) Branch mg per hours as capsule needed for Other (headache) . rizatriptan 2021-05 Yes [id number] 10mg Take 1 [facility] 10 mg 1-12 tablet by ity of tablet 00:00: mouth as [place] 00 needed for Medical Migraine. Branch May repeat in 2 hours if needed Butalbital- 2021-05 Yes [id number] 1{capsu Take 1 [facility] Acetaminoph 1-12 le} capsule by it y of en-Caff 00:00: mouth [place] (FIORICET) 00 every 6 Medica l 50-300-40 (six) Branch mg per hours as capsule needed for Other (headache) . rizatriptan 2021-05 Yes [id number] 10mg Take 1 Univers 10 mg 1-12 tablet by ity of tablet 00:00: mouth as [place] 00 needed for Medical Migraine. Branch May repeat in 2 hours if needed Butalbital- 2021-05 Yes [id number] 1{capsu Take 1 [facility] Acetaminoph 1-12 le} capsule by it y of en-Caff 00:00: mouth [place] (FIORICET) 00 every 6 Medica l 50-300-40 (six) Branch mg per hours as capsule needed for Other (headache) . rizatriptan 2021-05 Yes [id number] 10mg Take 1 Univers 10 mg 1-12 tablet by ity of tablet 00:00: mouth as [place] 00 needed for Medical Migraine. Branch May repeat in 2 hours if needed Butalbital- 2021-05 Yes [id number] 1{capsu Take 1 [facility] Acetaminoph 1-12 le} capsule by it y of en-Caff 00:00: mouth [place] (FIORICET) 00 every 6 Medica l 50-300-40 (six) Branch mg per hours as capsule needed for Other (headache) . rizatriptan 2021-05 Yes [id number] 10mg Take 1 Univers 10 mg 1-12 tablet by ity of tablet 00:00: mouth as [place] 00 needed for Medical Migraine. Branch May repeat in 2 hours if needed Butalbital- 2021-05 Yes [id number] 1{capsu Take 1 Univers Acetaminoph 1-12 le} capsule by it y of en-Caff 00:00: mouth [place] (FIORICET) 00 every 6 Medica l 50-300-40 (six) Branch mg per hours as capsule needed for Other (headache) . rizatriptan 2021-05 Yes [id number] 10mg Take 1 Univers 10 mg 1-12 tablet by ity of tablet 00:00: mouth as [place] 00 needed for Medical Migraine. Branch May repeat in 2 hours if needed Butalbital- 2021-05 Yes [id number] 1{capsu Take 1 Univers Acetaminoph 1-12 le} capsule by it y of en-Caff 00:00: mouth [place] (FIORICET) 00 every 6 Medica l 50-300-40 (six) Branch mg per hours as capsule needed for Other (headache) . rizatriptan 2021-05 Yes [id number] 10mg Take 1 Univers 10 mg 1-12 tablet by ity of tablet 00:00: mouth as [place] 00 needed for Medical Migraine. Branch May repeat in 2 hours if needed Butalbital- 2021-05 Yes [id number] 1{capsu Take 1 Univers Acetaminoph 1-12 le} capsule by it y of en-Caff 00:00: mouth [place] (FIORICET) 00 every 6 Medica l 50-300-40 (six) Branch mg per hours as capsule needed for Other (headache) . rizatriptan 2021-05 Yes [id number] 10mg Take 1 Univers 10 mg 1-12 tablet by ity of tablet 00:00: mouth as [place] 00 needed for Medical Migraine. Branch May repeat in 2 hours if needed Butalbital- 2021-05 Yes [id number] 1{capsu Take 1 Univers Acetaminoph 1-12 le} capsule by it y of en-Caff 00:00: mouth [place] (FIORICET) 00 every 6 Medica l 50-300-40 (six) Branch mg per hours as capsule needed for Other (headache) . rizatriptan 2021-05 Yes [id number] 10mg Take 1 Univers 10 mg 1-12 tablet by ity of tablet 00:00: mouth as [place] 00 needed for Medical Migraine. Branch May repeat in 2 hours if needed Butalbital- 2021-05 Yes [id number] 1{capsu Take 1 Univers Acetaminoph 1-12 le} capsule by it y of en-Caff 00:00: mouth [place] (FIORICET) 00 every 6 Medica l 50-300-40 (six) Branch mg per hours as capsule needed for Other (headache) . rizatriptan 2021-05 Yes [id number] 10mg Take 1 Univers 10 mg 1-12 tablet by ity of tablet 00:00: mouth as [place] 00 needed for Medical Migraine. Branch May repeat in 2 hours if needed Butalbital- 2021-05 Yes [id number] 1{capsu Take 1 Univers Acetaminoph 1-12 le} capsule by it y of en-Caff 00:00: mouth [place] (FIORICET) 00 every 6 Medica l 50-300-40 (six) Branch mg per hours as capsule needed for Other (headache) . rizatriptan 2021-05 Yes [id number] 10mg Take 1 Univers 10 mg 1-12 tablet by ity of tablet 00:00: mouth as [place] 00 needed for Medical Migraine. Branch May repeat in 2 hours if needed Butalbital- 2021-05 Yes [id number] 1{capsu Take 1 Univers Acetaminoph 1-12 le} capsule by it y of en-Caff 00:00: mouth [place] (FIORICET) 00 every 6 Medica l 50-300-40 (six) Branch mg per hours as capsule needed for Other (headache) . rizatriptan 2021-05 Yes [id number] 10mg Take 1 [facility] 10 mg 1-12 tablet by ity of tablet 00:00: mouth as [place] 00 needed for Medical Migraine. Branch May repeat in 2 hours if needed Butalbital- 2021-05 Yes [id number] 1{capsu Take 1 [facility] Acetaminoph 1-12 le} capsule by it y of en-Caff 00:00: mouth [place] (FIORICET) 00 every 6 Medica l 50-300-40 (six) Branch mg per hours as capsule needed for Other (headache) . rizatriptan 2021-05 Yes [id number] 10mg Take 1 [facility] 10 mg 1-12 tablet by ity of tablet 00:00: mouth as [place] 00 needed for Medical Migraine. Branch May repeat in 2 hours if needed Butalbital- 2021-05 Yes [id number] 1{capsu Take 1 Univers Acetaminoph 1-12 le} capsule by it y of en-Caff 00:00: mouth [place] (FIORICET) 00 every 6 Medica l 50-300-40 (six) Branch mg per hours as capsule needed for Other (headache) . rizatriptan 2021-05 Yes [id number] 10mg Take 1 [facility] 10 mg 1-12 tablet by ity of tablet 00:00: mouth as [place] 00 needed for Medical Migraine. Branch May repeat in 2 hours if needed Butalbital- 2021-05 Yes [id number] 1{capsu Take 1 [facility] Acetaminoph 1-12 le} capsule by it y of en-Caff 00:00: mouth [place] (FIORICET) 00 every 6 Medica l 50-300-40 (six) Branch mg per hours as capsule needed for Other (headache) . rizatriptan 2021-05 Yes [id number] 10mg Take 1 [facility] 10 mg 1-12 tablet by ity of tablet 00:00: mouth as [place] 00 needed for Medical Migraine. Branch May repeat in 2 hours if needed Butalbital- 2021-05 Yes [id number] 1{capsu Take 1 [facility] Acetaminoph 1-12 le} capsule by it y of en-Caff 00:00: mouth [place] (FIORICET) 00 every 6 Medica l 50-300-40 (six) Branch mg per hours as capsule needed for Other (headache) . rizatriptan 2021-05 Yes [id number] 10mg Take 1 [facility] 10 mg 1-12 tablet by ity of tablet 00:00: mouth as [place] 00 needed for Medical Migraine. Branch May repeat in 2 hours if needed Butalbital- 2021-05 Yes [id number] 1{capsu Take 1 [facility] Acetaminoph 1-12 le} capsule by it y of en-Caff 00:00: mouth [place] (FIORICET) 00 every 6 Medica l 50-300-40 (six) Branch mg per hours as capsule needed for Other (headache) . rizatriptan 2021-05 Yes [id number] 10mg Take 1 [facility] 10 mg 1-12 tablet by ity of tablet 00:00: mouth as [place] 00 needed for Medical Migraine. Branch May repeat in 2 hours if needed Butalbital- 2021-05 Yes [id number] 1{capsu Take 1 [facility] Acetaminoph 1-12 le} capsule by it y of en-Caff 00:00: mouth [place] (FIORICET) 00 every 6 Medica l 50-300-40 (six) Branch mg per hours as capsule needed for Other (headache) . rizatriptan 2021-05 Yes [id number] 10mg Take 1 [facility] 10 mg 1-12 tablet by ity of tablet 00:00: mouth as [place] 00 needed for Medical Migraine. Branch May repeat in 2 hours if needed Butalbital- 2021-05 Yes [id number] 1{capsu Take 1 [facility] Acetaminoph 1-12 le} capsule by it y of en-Caff 00:00: mouth [place] (FIORICET) 00 every 6 Medica l 50-300-40 (six) Branch mg per hours as capsule needed for Other (headache) . rizatriptan 2021-05 Yes [id number] 10mg Take 1 [facility] 10 mg 1-12 tablet by ity of tablet 00:00: mouth as [place] 00 needed for Medical Migraine. Branch May repeat in 2 hours if needed Butalbital- 2021-05 Yes [id number] 1{capsu Take 1 [facility] Acetaminoph 1-12 le} capsule by it y of en-Caff 00:00: mouth [place] (FIORICET) 00 every 6 Medica l 50-300-40 (six) Branch mg per hours as capsule needed for Other (headache) . rizatriptan 2021-05 Yes [id number] 10mg Take 1 [facility] 10 mg 1-12 tablet by ity of tablet 00:00: mouth as [place] 00 needed for Medical Migraine. Branch May repeat in 2 hours if needed Butalbital- 2021-05 Yes [id number] 1{capsu Take 1 [facility] Acetaminoph 1-12 le} capsule by it y of en-Caff 00:00: mouth [place] (FIORICET) 00 every 6 Medica l 50-300-40 (six) Branch mg per hours as capsule needed for Other (headache) . rizatriptan 2021-05 Yes [id number] 10mg Take 1 [facility] 10 mg 1-12 tablet by ity of tablet 00:00: mouth as [place] 00 needed for Medical Migraine. Branch May repeat in 2 hours if needed Butalbital- 2021-05 Yes [id number] 1{capsu Take 1 [facility] Acetaminoph 1-12 le} capsule by it y of en-Caff 00:00: mouth [place] (FIORICET) 00 every 6 Medica l 50-300-40 (six) Branch mg per hours as capsule needed for Other (headache) . rizatriptan 2021-05 Yes [id number] 10mg Take 1 [facility] 10 mg 1-12 tablet by ity of tablet 00:00: mouth as [place] 00 needed for Medical Migraine. Branch May repeat in 2 hours if needed Butalbital- 2021-05 Yes [id number] 1{capsu Take 1 [facility] Acetaminoph 1-12 le} capsule by it y of en-Caff 00:00: mouth [place] (FIORICET) 00 every 6 Medica l 50-300-40 (six) Branch mg per hours as capsule needed for Other (headache) . rizatriptan 2021-05 Yes [id number] 10mg Take 1 [facility] 10 mg 1-12 tablet by ity of tablet 00:00: mouth as [place] 00 needed for Medical Migraine. Branch May repeat in 2 hours if needed Butalbital- 2021-05 Yes [id number] 1{capsu Take 1 [facility] Acetaminoph 1-12 le} capsule by it y of en-Caff 00:00: mouth [place] (FIORICET) 00 every 6 Medica l 50-300-40 (six) Branch mg per hours as capsule needed for Other (headache) . rizatriptan 2021-05 Yes [id number] 10mg Take 1 [facility] 10 mg 1-12 tablet by ity of tablet 00:00: mouth as [place] 00 needed for Medical Migraine. Branch May repeat in 2 hours if needed Butalbital- 2021-05 Yes [id number] 1{capsu Take 1 [facility] Acetaminoph 1-12 le} capsule by it y of en-Caff 00:00: mouth [place] (FIORICET) 00 every 6 Medica l 50-300-40 (six) Branch mg per hours as capsule needed for Other (headache) . rizatriptan 2021-05 Yes [id number] 10mg Take 1 [facility] 10 mg 1-12 tablet by ity of tablet 00:00: mouth as [place] 00 needed for Medical Migraine. Branch May repeat in 2 hours if needed Butalbital- 2021-05 Yes [id number] 1{capsu Take 1 [facility] Acetaminoph 1-12 le} capsule by it y of en-Caff 00:00: mouth [place] (FIORICET) 00 every 6 Medica l 50-300-40 (six) Branch mg per hours as capsule needed for Other (headache) . rizatriptan 2021-05 Yes [id number] 10mg Take 1 [facility] 10 mg 1-12 tablet by ity of tablet 00:00: mouth as [place] 00 needed for Medical Migraine. Branch May repeat in 2 hours if needed Butalbital- 2021-05 Yes [id number] 1{capsu Take 1 [facility] Acetaminoph 1-12 le} capsule by it y of en-Caff 00:00: mouth [place] (FIORICET) 00 every 6 Medica l 50-300-40 (six) Branch mg per hours as capsule needed for Other (headache) . rizatriptan 2021-05 Yes [id number] 10mg Take 1 [facility] 10 mg 1-12 tablet by ity of tablet 00:00: mouth as [place] 00 needed for Medical Migraine. Branch May repeat in 2 hours if needed Butalbital- 2021-05 Yes [id number] 1{capsu Take 1 [facility] Acetaminoph 1-12 le} capsule by it y of en-Caff 00:00: mouth [place] (FIORICET) 00 every 6 Medica l 50-300-40 (six) Branch mg per hours as capsule needed for Other (headache) . rizatriptan 2021-05 Yes [id number] 10mg Take 1 [facility] 10 mg 1-12 tablet by ity of tablet 00:00: mouth as [place] 00 needed for Medical Migraine. Branch May repeat in 2 hours if needed Butalbital- 2021-05 Yes [id number] 1{capsu Take 1 [facility] Acetaminoph 1-12 le} [...] 50mg Take 1 Univ ers 50 mg 09 tablet by ity of tablet 00:00: mouth as [place] 00 needed for Medical Migraine. Branch Take one tablet at onset of migraine, may take another tablet 2 hours after initial dose if no relief with first dose. DO NOT EXCEED 100mg in a 24 hour period. FENTanyl PF 2021-05- No 50ug 50 mcg, Un sushant (SUBLIMAZE 05-15 Slow IV ity o f (PF)) 15:30: 14:56 Push, [place] injection 00 :00 ONCE, 1 Medical 50 mcg dose, On Branch [facility] 03/15/22 at 1030, Routine proMETHazin 2021-05- No 25mg 25 mg, Uni vers e 05-15 Oral, ity of (PHENERGAN) 14:45: 14:55 ONCE, 1 [place] 25 00 :00 dose, On Medica l mg [facility] 03/15/22 at 0945, [place] FENTanyl PF 2021-05- No 50ug 50 mcg, Un sushant (SUBLIMAZE 05-15 Slow IV ity o f (PF)) 14:45: 13:58 Push, [place] injection 00 :00 ONCE, 1 Medical 50 mcg dose, On Branch [facility] 03/15/22 at 0945, Routine ondansetron 2021-05- No 4mg 4 mg, Slow Univers (ZOFRAN 05-15 IV [place], ity of (PF)) 14:00: 13:58 ONCE, 1 [place] injection 4 00 :00 dose, On Medi yessi mg [facility] 03/15/22 at 0900, [place] ondansetron 2021-05 Yes [id number] 4mg Take 1 [facility] 4 mg -03 tablet by ity of disintegrat 00:00: mouth [place] ing tablet 00 every 8 Medica l (eight) Branch hours as needed for Nausea and Vomiting (N/V). ketorolac 2021-05 Yes [id number] 10mg Take 1 U nivers 10 mg 1-03 tablet by ity of tablet 00:00: mouth [place] 00 every 6 Medical (six) Branch hours as needed for Pain (scale 7-10). proMETHazin 2021-05 Yes [id number] 25mg Take 1 Univers e 25 mg 1-03 tablet by ity of tablet 00:00: mouth [place] 00 every 6 Medical (six) Branch hours as needed for N/V unresponsi ve to Ondansetro n. ondansetron 2021-05 Yes [id number] 4mg Take 1 [facility] 4 mg 1-03 tablet by ity of disintegrat 00:00: mouth [place] ing tablet 00 every 8 Medica l (eight) Branch hours as needed for Nausea and Vomiting (N/V). ketorolac 2021-05 Yes [id number] 10mg Take 1 U nivers 10 mg 1-03 tablet by ity of tablet 00:00: mouth [place] 00 every 6 Medical (six) Branch hours as needed for Pain (scale 7-10). proMETHazin 2021-05 Yes [id number] 25mg Take 1 [facility] e 25 mg 1-03 tablet by ity of tablet 00:00: mouth [place] 00 every 6 Medical (six) Branch hours as needed for N/V unresponsi ve to Ondansetro n. carvediloL 2021-05 Yes [id number] 25mg Take 1 U nivers 25 mg 1-03 tablet by ity of tablet 00:00: mouth in [place] 00 the Medical morning Branch and 1 tablet in the evening. Take with meals. ondansetron 2021-05 Yes [id number] 4mg Take 1 [facility] 4 mg 1-03 tablet by ity of disintegrat 00:00: mouth [place] ing tablet 00 every 8 Medica l (eight) Branch hours as needed for Nausea and Vomiting (N/V). ketorolac 2021-05 Yes [id number] 10mg Take 1 U nivers 10 mg 1-03 tablet by ity of tablet 00:00: mouth [place] 00 every 6 Medical (six) Branch hours as needed for Pain (scale 7-10). proMETHazin 2021-05 Yes [id number] 25mg Take 1 Univers e 25 mg 1-03 tablet by ity of tablet 00:00: mouth [place] 00 every 6 Medical (six) Branch hours as needed for N/V unresponsi ve to Ondansetro n. carvediloL 2021-05 Yes [id number] 25mg Take 1 U nivers 25 mg 1-03 tablet by ity of tablet 00:00: mouth in [place] 00 the Medical morning Branch and 1 tablet in the evening. Take with meals. ondansetron 2021-05 Yes [id number] 4mg Take 1 [facility] 4 mg 1-03 tablet by ity of disintegrat 00:00: mouth [place] ing tablet 00 every 8 Medica l (eight) Branch hours as needed for Nausea and Vomiting (N/V). ketorolac 2021-05 Yes [id number] 10mg Take 1 U nivers 10 mg 1-03 tablet by ity of tablet 00:00: mouth [place] 00 every 6 Medical (six) Branch hours as needed for Pain (scale 7-10). proMETHazin 2021-05 Yes [id number] 25mg Take 1 Univers e 25 mg 1-03 tablet by ity of tablet 00:00: mouth [place] 00 every 6 Medical (six) Branch hours as needed for N/V unresponsi ve to Ondansetro n. carvediloL 2021-05 Yes [id number] 25mg Take 1 U nivers 25 mg 1-03 tablet by ity of tablet 00:00: mouth in [place] 00 the Medical morning Branch and 1 tablet in the evening. Take with meals. ondansetron 2021-05 Yes [id number] 4mg Take 1 [facility] 4 mg 1-03 tablet by ity of disintegrat 00:00: mouth [place] ing tablet 00 every 8 Medica l (eight) Branch hours as needed for Nausea and Vomiting (N/V). ketorolac 2021-05 Yes [id number] 10mg Take 1 U nivers 10 mg 1-03 tablet by ity of tablet 00:00: mouth [place] 00 every 6 Medical (six) Branch hours as needed for Pain (scale 7-10). proMETHazin 2021-05 Yes [id number] 25mg Take 1 Univers e 25 mg 1-03 tablet by ity of tablet 00:00: mouth [place] 00 every 6 Medical (six) Branch hours as needed for N/V unresponsi ve to Ondansetro n. carvediloL 2021-05 Yes [id number] 25mg Take 1 U nivers 25 mg 1-03 tablet by ity of tablet 00:00: mouth in [place] 00 the Medical morning Branch and 1 tablet in the evening. Take with meals. ondansetron 2021-05 Yes [id number] 4mg Take 1 [facility] 4 mg 1-03 tablet by ity of disintegrat 00:00: mouth [place] ing tablet 00 every 8 Medica l (eight) Branch hours as needed for Nausea and Vomiting (N/V). ketorolac 2021-05 Yes [id number] 10mg Take 1 U nivers 10 mg 1-03 tablet by ity of tablet 00:00: mouth [place] 00 every 6 Medical (six) Branch hours as needed for Pain (scale 7-10). proMETHazin 2021-05 Yes [id number] 25mg Take 1 Univers e 25 mg 1-03 tablet by ity of tablet 00:00: mouth [place] 00 every 6 Medical (six) Branch hours as needed for N/V unresponsi ve to Ondansetro n. carvediloL 2021-05 Yes [id number] 25mg Take 1 U nivers 25 mg 1-03 tablet by ity of tablet 00:00: mouth in [place] 00 the Medical morning Branch and 1 tablet in the evening. Take with meals. ondansetron 2021-05 Yes [id number] 4mg Take 1 [facility] 4 mg 1-03 tablet by ity of disintegrat 00:00: mouth [place] ing tablet 00 every 8 Medica l (eight) Branch hours as needed for Nausea and Vomiting (N/V). ketorolac 2021-05 Yes [id number] 10mg Take 1 U nivers 10 mg 1-03 tablet by ity of tablet 00:00: mouth [place] 00 every 6 Medical (six) Branch hours as needed for Pain (scale 7-10). proMETHazin 2021-05 Yes [id number] 25mg Take 1 Univers e 25 mg 1-03 tablet by ity of tablet 00:00: mouth [place] 00 every 6 Medical (six) Branch hours as needed for N/V unresponsi ve to Ondansetro n. carvediloL 2021-05 Yes [id number] 25mg Take 1 U nivers 25 mg 1-03 tablet by ity of tablet 00:00: mouth in [place] 00 the Medical morning Branch and 1 tablet in the evening. Take with meals. ondansetron 2021-05 Yes [id number] 4mg Take 1 [facility] 4 mg 1-03 tablet by ity of disintegrat 00:00: mouth [place] ing tablet 00 every 8 Medica l (eight) Branch hours as needed for Nausea and Vomiting (N/V). ketorolac 2021-05 Yes [id number] 10mg Take 1 U nivers 10 mg 1-03 tablet by ity of tablet 00:00: mouth [place] 00 every 6 Medical (six) Branch hours as needed for Pain (scale 7-10). proMETHazin 2021-05 Yes [id number] 25mg Take 1 Univers e 25 mg 1-03 tablet by ity of tablet 00:00: mouth [place] 00 every 6 Medical (six) Branch hours as needed for N/V unresponsi ve to Ondansetro n. carvediloL 2021-05 Yes [id number] 25mg Take 1 U nivers 25 mg 1-03 tablet by ity of tablet 00:00: mouth in [place] 00 the Medical morning Branch and 1 tablet in the evening. Take with meals. ondansetron 2021-05 Yes [id number] 4mg Take 1 [facility] 4 mg 1-03 tablet by ity of disintegrat 00:00: mouth [place] ing tablet 00 every 8 Medica l (eight) Branch hours as needed for Nausea and Vomiting (N/V). ketorolac 2021-05 Yes [id number] 10mg Take 1 U nivers 10 mg 1-03 tablet by ity of tablet 00:00: mouth [place] 00 every 6 Medical (six) Branch hours as needed for Pain (scale 7-10). proMETHazin 2021-05 Yes [id number] 25mg Take 1 Univers e 25 mg 1-03 tablet by ity of tablet 00:00: mouth [place] 00 every 6 Medical (six) Branch hours as needed for N/V unresponsi ve to Ondansetro n. carvediloL 2021-05 Yes [id number] 25mg Take 1 U nivers 25 mg 1-03 tablet by ity of tablet 00:00: mouth in [place] 00 the Medical morning Branch and 1 tablet in the evening. Take with meals. ondansetron 2021-05 Yes [id number] 4mg Take 1 Univers 4 mg 1-03 tablet by ity of disintegrat 00:00: mouth [place] ing tablet 00 every 8 Medica l (eight) Branch hours as needed for Nausea and Vomiting (N/V). ketorolac 2021-05 Yes [id number] 10mg Take 1 U nivers 10 mg 1-03 tablet by ity of tablet 00:00: mouth [place] 00 every 6 Medical (six) Branch hours as needed for Pain (scale 7-10). proMETHazin 2021-05 Yes [id number] 25mg Take 1 Univers e 25 mg 1-03 tablet by ity of tablet 00:00: mouth [place] 00 every 6 Medical (six) Branch hours as needed for N/V unresponsi ve to Ondansetro n. carvediloL 2021-05 Yes [id number] 25mg Take 1 U nivers 25 mg 1-03 tablet by ity of tablet 00:00: mouth in [place] 00 the Medical morning Branch and 1 tablet in the evening. Take with meals. carvediloL 2021-05 Yes [id number] 25mg Take 1 U nivers 25 mg 1-03 tablet by ity of tablet 00:00: mouth in [place] 00 the Medical morning Branch and 1 tablet in the evening. Take with meals. carvediloL 2021-05 Yes [id number] 25mg Take 1 U nivers 25 mg 1-03 tablet by ity of tablet 00:00: mouth in [place] 00 the Medical morning [place] and 1 tablet in the evening. Take with meals. carvediloL 2021-05 Yes [id number] 25mg Take 1 U nivers 25 mg 1-03 tablet by ity of tablet 00:00: mouth in [place] 00 the Medical morning [place] and 1 tablet in the evening. Take with meals. carvediloL 2021-05 Yes [id number] 25mg Take 1 U nivers 25 mg 1-03 tablet by ity of tablet 00:00: mouth in [place] 00 the Medical morning [place] and 1 tablet in the evening. Take with meals. carvediloL 2021-05 Yes [id number] 25mg Take 1 U nivers 25 mg 1-03 tablet by ity of tablet 00:00: mouth in [place] 00 the Medical morning Branch and 1 tablet in the evening. Take with meals. carvediloL 2021-05 Yes [id number] 25mg Take 1 U nivers 25 mg 1-03 tablet by ity of tablet 00:00: mouth in [place] [address] the [facility] morning [place] and 1 tablet in the evening. Take with meals. carvediloL 2021-05 Yes [id number] 25mg Take 1 U nivers 25 mg 1-03 tablet by ity of tablet 00:00: mouth in [place] 00 the [facility] morning [place] and 1 tablet in the evening. Take with meals. carvediloL 2021-05 Yes [id number] 25mg Take 1 U nivers 25 mg 1-03 tablet by ity of tablet 00:00: mouth in [place] [address] the Medical morning Branch and 1 tablet in the evening. Take with meals. carvediloL 2021-05 Yes [id number] 25mg Take 1 U nivers 25 mg 1-03 tablet by ity of tablet 00:00: mouth in [place] [address] the Medical morning Branch and 1 tablet in the evening. Take with meals. carvediloL 2021-05 Yes [id number] 25mg Take 1 U nivers 25 mg 1-03 tablet by ity of tablet 00:00: mouth in [place] [address] the Medical morning Branch and 1 tablet in the evening. Take with meals. carvediloL 2021-05 Yes [id number] 25mg Take 1 U nivers 25 mg 1-03 tablet by ity of tablet 00:00: mouth in [place] [address] the Medical morning Branch and 1 tablet in the evening. Take with meals. carvediloL 2021-05 Yes [id number] 25mg Take 1 U nivers 25 mg 1-03 tablet by ity of tablet 00:00: mouth in [place] [address] the Medical morning [place] and 1 tablet in the evening. Take with meals. carvediloL 2021-05 Yes [id number] 25mg Take 1 U nivers 25 mg 1-03 tablet by ity of tablet 00:00: mouth in [place] [address] the Medical morning [place] and 1 tablet in the evening. Take with meals. carvediloL 2021-05 Yes [id number] 25mg Take 1 U nivers 25 mg 1-03 tablet by ity of tablet 00:00: mouth in [place] [address] the Medical morning [place] and 1 tablet in the evening. Take with meals. carvediloL 2021-05 Yes [id number] 25mg Take 1 U nivers 25 mg 1-03 tablet by ity of tablet 00:00: mouth in [place] [address] the Medical morning [place] and 1 tablet in the evening. Take with meals. carvediloL 2021-05 Yes [id number] 25mg Take 1 U nivers 25 mg 1-03 tablet by ity of tablet 00:00: mouth in [place] [address] the Medical morning [place] and 1 tablet in the evening. Take with meals. carvediloL 2021-05 Yes [id number] 25mg Take 1 U nivers 25 mg 1-03 tablet by ity of tablet 00:00: mouth in [place] 00 the [facility] morning [place] and 1 tablet in the evening. Take with meals. carvediloL 2021-05 Yes [id number] 25mg Take 1 U nivers 25 mg 1-03 tablet by ity of tablet 00:00: mouth in [place] 00 the [facility] morning [place] and 1 tablet in the evening. Take with meals. carvediloL 2021-05 Yes [id number] 25mg Take 1 U nivers 25 mg 1-03 tablet by ity of tablet 00:00: mouth in [place] 00 the [facility] and 1 tablet in the evening. Take with meals. carvediloL 2021-05 Yes [id number] 25mg Take 1 U nivers 25 mg 1-03 tablet by ity of tablet 00:00: mouth in [place] 00 the [facility] and 1 tablet in the evening. Take with meals. carvediloL 2021-05 Yes [id number] 25mg Take 1 U nivers 25 mg 1-03 tablet by ity of tablet 00:00: mouth in [place] [address] the [facility] and 1 tablet in the evening. Take with meals. carvediloL 2021-05- No [id number] 25mg Take 1 Univers 25 mg 1-03 04-26 tablet by ity of tablet 00:00: 00:00 mouth in [place] 00 :00 the [facility] and 1 tablet in the evening. Take with meals. carvediloL 2021-05- No [id number] 25mg Take 1 Univers 25 mg 1-03 04-26 tablet by ity of tablet 00:00: 00:00 mouth in [place] 00 :00 the [facility] and 1 tablet in the evening. Take with meals. ondansetron 2021-05- No [id number] 4mg Take 1 [facility] 4 mg 1-03 11-26 tablet by ity of disintegrat 00:00: 00:00 [place] 00 :00 every 8 Medica l (eight) Branch hours as needed for Nausea and Vomiting (N/V). ketorolac 2021-05- No [id number] 10mg Take 1 [facility] 10 mg 1-03 11-26 tablet by ity of tablet 00:00: 00:00 mouth [place] 00 :00 every 6 Medical (six) Branch hours as needed for Pain (scale 7-10). proMETHazin 2021-05- No [id number] 25mg Take 1 Univers e 25 mg 05-15 tablet by ity of tablet 00:00: 00:00 mouth [place] 00 :00 every 6 Medical (six) Branch hours as needed for N/V unresponsi ve to Ondansetro n. cephALEXin 2021-05- No [id number] 500mg Take 1 [facility] 500 mg 05-15 capsule by ity of capsule 00:00: 05:59 mouth 4 [place] 00 :00 (four) Medical times [place] daily for 3 days. cephALEXin 2021-05- No [id number] 500mg Take 1 [facility] 500 mg 05-15 capsule by ity of capsule 00:00: 05:59 mouth 4 [place] 00 :00 (four) Medical times [place] daily for 3 days. cephALEXin 2021-05- No [id number] 500mg Take 1 [facility] 500 mg 05-15 capsule by ity of capsule 00:00: 05:59 mouth 4 [place] 00 :00 (four) Medical times [place] daily for 3 days. predniSONE 2021-05- No [id number] 20mg Take 1 Univers 20 mg 03-15 tablet by ity of tablet 00:00: 04:59 mouth in [place] 00 :00 the Medical morning Branch for 2 days. methocarbam 2021-05- No 500mg 500 mg, U nivers oL 0-30 10-30 Oral, ity of (ROBAXIN) 16:45: 17:08 ONCE, 1 [place] 00 :00 dose, On Medic al mg [facility] 03/11/22 at 1200, [place] dexamethaso 2021-05- No 10mg 10 mg, Uni vers ne sod phos 0-30 10-30 Slow IV ity of PF 16:00: 16:00 Push, [place] injection 00 :00 ONCE, 1 Medical 10 mg dose, On [facility] 03/11/22 at 1100, 1 mL diphenhydrA 2021-05- No 25mg 25 mg, Uni vers MINE 0-30 10-30 Slow IV ity of (BENADRYL) 15:46: 16:00 [place], [place] injection 00 :00 ONCE, 1 Medical 25 mg dose, On [facility] 03/11/22 at 1100, STAT NaCl 0.9% 2021-05 [...] 00 :00 ONCE, 1 Medical dose, On [facility] 03/11/22 at 0945, [place] proMETHazin 2021-05- No 12.5mg 12.5 mg, Univers e 0-30 10-30 IV ity of (PHENERGAN) 14:45: 15:04 Piggy[place], [place] 12.5 mg in 00 :00 ONCE, 1 Medica l NaCl 0.9% dose, On Branch (NS) 50 mL Sun IV 03/11/22 piggyback at 0945, [place] proMETHazin 2021-05 Yes [id number] 25mg Take 1 Univers e 25 mg 0-30 tablet by ity of tablet 00:00: mouth [place] 00 every 6 Medical (six) Branch hours as needed for Nausea and Vomiting (N/V). methocarbam 2021-05 Yes [id number] 500mg Take 1 Univers oL 500 mg 0-30 tablet by ity o f tablet 00:00: mouth 3 [place] 00 (three) Medical times Branch daily as needed for Pain (scale 7-10). proMETHazin 2021-05 Yes [id number] 25mg Take 1 Univers e 25 mg 0-30 tablet by ity of tablet 00:00: mouth [place] 00 every 6 Medical (six) Branch hours as needed for Nausea and Vomiting (N/V). methocarbam 2021-05 Yes [id number] 500mg Take 1 Univers oL 500 mg 0-30 tablet by ity o f tablet 00:00: mouth 3 [place] 00 (three) Medical times Branch daily as needed for Pain (scale 7-10). proMETHazin 2021-05 Yes [id number] 25mg Take 1 Univers e 25 mg 0-30 tablet by ity of tablet 00:00: mouth [place] 00 every 6 Medical (six) Branch hours as needed for Nausea and Vomiting (N/V). methocarbam 2021-05 Yes [id number] 500mg Take 1 Univers oL 500 mg 0-30 tablet by ity o f tablet 00:00: mouth 3 [place] 00 (three) Medical times Branch daily as needed for Pain (scale 7-10). proMETHazin 2021-05 Yes [id number] 25mg Take 1 Univers e 25 mg 0-30 tablet by ity of tablet 00:00: mouth [place] 00 every 6 Medical (six) Branch hours as needed for Nausea and Vomiting (N/V). methocarbam 2021-05 Yes [id number] 500mg Take 1 Univers oL 500 mg 0-30 tablet by ity o f tablet 00:00: mouth 3 00 (three) Medical times Branch daily as needed for Pain (scale 7-10). proMETHazin 2021-05 Yes [id number] 25mg Take 1 Univers e 25 mg 0-30 tablet by ity of tablet 00:00: mouth [place] 00 every 6 Medical (six) Branch hours as needed for Nausea and Vomiting (N/V). methocarbam 2021-05 Yes [id number] 500mg Take 1 Univers oL 500 mg 0-30 tablet by ity o f tablet 00:00: mouth 3 [place] 00 (three) Medical times Branch daily as needed for Pain (scale 7-10). proMETHazin 2021-05 Yes [id number] 25mg Take 1 Univers e 25 mg 0-30 tablet by ity of tablet 00:00: mouth [place] 00 every 6 Medical (six) Branch hours as needed for Nausea and Vomiting (N/V). methocarbam 2021-05 Yes [id number] 500mg Take 1 Univers oL 500 mg 0-30 tablet by ity o f tablet 00:00: mouth 3 [place] 00 (three) Medical times Branch daily as needed for Pain (scale 7-10). proMETHazin 2021-05 Yes [id number] 25mg Take 1 [facility] 25 mg 0-30 tablet by [facility] of tablet 00:00: mouth [place] 00 every 6 Medical (six) Branch hours as needed for Nausea and Vomiting (N/V). methocarbam 2021-05 Yes [id number] 500mg Take 1 [facility] oL 500 mg 0-30 tablet by ity o f tablet 00:00: mouth 3 [place] 00 (three) Medical times Branch daily as needed for Pain (scale 7-10). proMETHazin 2021-05 Yes [id number] 25mg Take 1 [facility] 25 mg 0-30 tablet by [facility] of tablet 00:00: mouth [place] 00 every 6 Medical (six) Branch hours as needed for Nausea and Vomiting (N/V). methocarbam 2021-05 Yes [id number] 500mg Take 1 [facility] oL 500 mg 0-30 tablet by it[facility] o f tablet 00:00: mouth 3 [place] 00 (three) Medical times Branch daily as needed for Pain (scale 7-10). proMETHazin 2021-05 Yes [id number] 25mg Take 1 [facility] 25 mg 0-30 tablet by [facility] of tablet 00:00: mouth [place] 00 every 6 Medical (six) Branch hours as needed for Nausea and Vomiting (N/V). methocarbam 2021-05 Yes [id number] 500mg Take 1 [facility] oL 500 mg 0-30 tablet by ity o f tablet 00:00: mouth 3 [place] 00 (three) Medical times Branch daily as needed for Pain (scale 7-10). proMETHazin 2021-05 Yes [id number] 25mg Take 1 [facility] 25 mg 0-30 tablet by [facility] of tablet 00:00: mouth [place] 00 every 6 Medical (six) Branch hours as needed for Nausea and Vomiting (N/V). methocarbam 2021-05 Yes [id number] 500mg Take 1 [facility] oL 500 mg 0-30 tablet by ity o f tablet 00:00: mouth 3 [place] 00 (three) Medical times Branch daily as needed for Pain (scale 7-10). proMETHazin 2021-05 Yes [id number] 25mg Take 1 [facility] 25 mg 0-30 tablet by [facility] of tablet 00:00: mouth [place] 00 every 6 Medical (six) Branch hours as needed for Nausea and Vomiting (N/V). methocarbam 2021-05 Yes [id number] 500mg Take 1 [facility] oL 500 mg 0-30 tablet by [facility]y o f tablet 00:00: mouth 3 [place] 00 (three) Medical times Branch daily as needed for Pain (scale 7-10). proMETHazin 2021-05 Yes [id number] 25mg Take 1 [facility] 25 mg 0-30 tablet by [facility] of tablet 00:00: mouth [place] 00 every 6 Medical (six) Branch hours as needed for Nausea and Vomiting (N/V). proMETHazin 2021-05 Yes [id number] 25mg Take 1 [facility] 25 mg 0-30 tablet by [facility] of tablet 00:00: mouth [place] 00 every 6 Medical (six) Branch hours as needed for Nausea and Vomiting (N/V). proMETHazin 2021-05 Yes [id number] 25mg Take 1 [facility] 25 mg 0-30 tablet by [facility] of tablet 00:00: mouth [place] 00 every 6 Medical (six) Branch hours as needed for Nausea and Vomiting (N/V). proMETHazin 2021-05 Yes [id number] 25mg Take 1 [facility] 25 mg 0-30 tablet by [facility] of tablet 00:00: mouth [place] 00 every 6 Medical (six) Branch hours as needed for Nausea and Vomiting (N/V). proMETHazin 2021-05 Yes [id number] 25mg Take 1 [facility] 25 mg 0-30 tablet by [facility] of tablet 00:00: mouth [place] 00 every 6 Medical (six) Branch hours as needed for Nausea and Vomiting (N/V). proMETHazin 2021-05 Yes [id number] 25mg Take 1 [facility] 25 mg 0-30 tablet by [facility] of tablet 00:00: mouth [place] 00 every 6 Medical (six) Branch hours as needed for Nausea and Vomiting (N/V). proMETHazin 2021-05 Yes [id number] 25mg Take 1 [facility] 25 mg 0-30 tablet by [facility] of tablet 00:00: mouth [place] 00 every 6 Medical (six) Branch hours as needed for Nausea and Vomiting (N/V). proMETHazin 2021-05 Yes [id number] 25mg Take 1 [facility] 25 mg 0-30 tablet by [facility] of tablet 00:00: mouth [place] 00 every 6 Medical (six) Branch hours as needed for Nausea and Vomiting (N/V). proMETHazin 2021-05 Yes [id number] 25mg Take 1 [facility] 25 mg 0-30 tablet by [facility] of tablet 00:00: mouth [place] 00 every 6 Medical (six) Branch hours as needed for Nausea and Vomiting (N/V). proMETHazin 2021-05 Yes [id number] 25mg Take 1 [facility] 25 mg 0-30 tablet by [facility] of tablet 00:00: mouth [place] 00 every 6 Medical (six) Branch hours as needed for Nausea and Vomiting (N/V). proMETHazin 2021-05 Yes [id number] 25mg Take 1 [facility] 25 mg 0-30 tablet by [facility] of tablet 00:00: mouth [place] 00 every 6 Medical (six) Branch hours as needed for Nausea and Vomiting (N/V). proMETHazin 2021-05 Yes [id number] 25mg Take 1 [facility] 25 mg 0-30 tablet by [facility] of tablet 00:00: mouth [place] 00 every 6 Medical (six) Branch hours as needed for Nausea and Vomiting (N/V). proMETHazin 2021-05 Yes [id number] 25mg Take 1 [facility] 25 mg 0-30 tablet by [facility] of tablet 00:00: mouth [place] 00 every 6 Medical (six) Branch hours as needed for Nausea and Vomiting (N/V). proMETHazin 2021-05 Yes [id number] 25mg Take 1 [facility] 25 mg 0-30 tablet by [facility] of tablet 00:00: mouth [place] 00 every 6 Medical (six) Branch hours as needed for Nausea and Vomiting (N/V). proMETHazin 2021-05 Yes [id number] 25mg Take 1 [facility] 25 mg 0-30 tablet by [facility] of tablet 00:00: mouth [place] 00 every 6 Medical (six) Branch hours as needed for Nausea and Vomiting (N/V). proMETHazin 2021-05 Yes [id number] 25mg Take 1 [facility] 25 mg 0-30 tablet by [facility] of tablet 00:00: mouth [place] 00 every 6 Medical (six) Branch hours as needed for Nausea and Vomiting (N/V). proMETHazin 2021-05 Yes [id number] 25mg Take 1 [facility] 25 mg 0-30 tablet by [facility] of tablet 00:00: mouth [place] 00 every 6 Medical (six) Branch hours as needed for Nausea and Vomiting (N/V). proMETHazin 2021-05- No [id number] 25mg Take 1 [facility] 25 mg 0-30 03-21 tablet by [facility] of tablet 00:00: 00:00 mouth [place] 00 :00 every 6 Medical (six) Branch hours as needed for Nausea and Vomiting (N/V). methocarbam 2021-05- No [id number] 500mg Take 1 [facility] oL 500 mg 0-30 11-26 tablet by [facility] of tablet 00:00: 00:00 mouth 3 [place] 00 :00 (three) Medical times Branch daily as needed for Pain (scale 7-10). topiramate 2021-05 Yes [id number] 100mg Take 4 [facility] 25 mg 0-21 tablets by [facility] of tablet 00:00: mouth in [place] 00 the Medical morning. [place] topiramate 2021-05 Yes [id number] 100mg Take 4 [facility] 25 mg 0-21 tablets by [facility] of tablet 00:00: mouth in [place] the Medical morning. [place] topiramate 2021-05 Yes [id number] 100mg Take 4 [facility] 25 mg 0-21 tablets by [facility] of tablet 00:00: mouth in [place] the Medical morning. [place] topiramate 2021-05 Yes [id number] 100mg Take 4 [facility] 25 mg 0-21 tablets by [facility] of tablet 00:00: mouth in [place] the Medical morning. [place] topiramate 2021-05 Yes [id number] 100mg Take 4 [facility] 25 mg 0-21 tablets by [facility] of tablet 00:00: mouth in [place] the Medical morning. [place] topiramate 2021-05 Yes [id number] 100mg Take 4 [facility] 25 mg 0-21 tablets by [facility] of tablet 00:00: mouth in [place] the Medical morning. [place] topiramate 2021-05 Yes [id number] 100mg Take 4 [facility] 25 mg 0-21 tablets by [facility] of tablet 00:00: mouth in [place] the Medical morning. [place] topiramate 2021-05 Yes [id number] 100mg Take 4 [facility] 25 mg 0-21 tablets by [facility] of tablet 00:00: mouth in [place] the Medical morning. [place] topiramate 2021-05 Yes [id number] 100mg Take 4 [facility] 25 mg 0-21 tablets by [facility] of tablet 00:00: mouth in [place] 00 the Medical morning. Branch topiramate 2-1 Yes [id number] 100mg Take 4 [facility] 25 mg 0-21 tablets by [facility] of tablet 00:00: mouth in [place] 00 the Medical morning. Branch topiramate 2-1 Yes [id number] 100mg Take 4 [facility] 25 mg 0-21 tablets by [facility] of tablet 00:00: mouth in [place] the Medical morning. Branch topiramate 2021-1 Yes [id number] 100mg Take 4 [facility] 25 mg 0-21 tablets by [facility] of tablet 00:00: mouth in [place] the Medical morning. Branch topiramate 2-1 Yes [id number] 100mg Take 4 [facility] 25 mg 0-21 tablets by [facility] of tablet 00:00: mouth in [place] the Medical morning. Branch topiramate 2-1 Yes [id number] 100mg Take 4 [facility] 25 mg 0-21 tablets by [facility] of tablet 00:00: mouth in [place] the Medical morning. Branch topiramate 2021-1 Yes [id number] 100mg Take 4 [facility] 25 mg 0-21 tablets by [facility] of tablet 00:00: mouth in [place] the Medical morning. Branch topiramate 2021-1 Yes [id number] 100mg Take 4 [facility] 25 mg 0-21 tablets by [facility] of tablet 00:00: mouth in [place] the Medical morning. Branch topiramate 2-1 Yes [id number] 100mg Take 4 [facility] 25 mg 0-21 tablets by [facility] of tablet 00:00: mouth in [place] the Medical morning. Branch topiramate 2-1 Yes [id number] 100mg Take 4 [facility] 25 mg 0-21 tablets by [facility] of tablet 00:00: mouth in [place] the Medical morning. Branch topiramate 2-1 Yes [id number] 100mg Take 4 [facility] 25 mg 0-21 tablets by [facility] of tablet 00:00: mouth in [place] the Medical morning. Branch topiramate 2022-1 Yes [id number] 100mg Take 4 [facility] 25 mg 0-21 tablets by [facility] of tablet 00:00: mouth in [place] 00 the Medical morning. Branch topiramate 2022-1 Yes [id number] 100mg Take 4 [facility] 25 mg 0-21 tablets by [facility]y of tablet 00:00: mouth in [place] 00 the Medical morning. Branch topiramate 2022-1 Yes [id number] 100mg Take 4 [facility] 25 mg 0-21 tablets by [facility] of tablet 00:00: mouth in [place] the Medical morning. Branch topiramate 2-1 Yes [id number] 100mg Take 4 [facility] 25 mg 0-21 tablets by [facility] of tablet 00:00: mouth in [place] the Medical morning. Branch topiramate 2021-1 Yes [id number] 100mg Take 4 [facility] 25 mg 0-21 tablets by [facility] of tablet 00:00: mouth in [place] the Medical morning. Branch topiramate 2021- Yes [id number] 100mg Take 4 [facility] 25 mg 0-21 tablets by [facility] of tablet 00:00: mouth in [place] the Medical morning. Branch topiramate 2021- Yes [id number] 100mg Take 4 [facility] 25 mg 0-21 tablets by [facility] of tablet 00:00: mouth in [place] the Medical morning. Branch topiramate 2021-1 Yes [id number] 100mg Take 4 [facility] 25 mg 0-21 tablets by [facility] of tablet 00:00: mouth in [place] the Medical morning. Branch topiramate 2021- Yes [id number] 100mg Take 4 [facility] 25 mg 0-21 tablets by [facility] of tablet 00:00: mouth in [place] the Medical morning. Branch topiramate 2021-1 Yes [id number] 100mg Take 4 [facility] 25 mg 0-21 tablets by [facility] of tablet 00:00: mouth in [place] the Medical morning. Branch topiramate 2-1 Yes [id number] 100mg Take 4 [facility] 25 mg 0-21 tablets by [facility] of tablet 00:00: mouth in [place] the Medical morning. Branch topiramate 2-1 Yes [id number] 100mg Take 4 [facility] 25 mg 0-21 tablets by [facility] of tablet 00:00: mouth in [place] the Medical morning. Branch topiramate 2-1 Yes [id number] 100mg Take 4 [facility] 25 mg 0-21 tablets by [facility] of tablet 00:00: mouth in [place] the Medical morning. Branch topiramate 2-1 Yes [id number] 100mg Take 4 [facility] 25 mg 0-21 tablets by [facility] of tablet 00:00: mouth in [place] 00 the Medical morning. Branch topiramate 2-1 Yes [id number] 100mg Take 4 [facility] 25 mg 0-21 tablets by [facility]y of tablet 00:00: mouth in [place] 00 the Medical morning. Branch topiramate 2021-05 Yes [id number] 100mg Take 4 [facility] 25 mg 0-21 tablets by [facility] of tablet 00:00: mouth in [place] the Medical morning. Branch topiramate 2021-05 Yes [id number] 100mg Take 4 [facility] 25 mg 0-21 tablets by [facility] of tablet 00:00: mouth in [place] the Medical morning. Branch topiramate 2021-05 Yes [id number] 100mg Take 4 [facility] 25 mg 0-21 tablets by [facility] of tablet 00:00: mouth in [place] the Medical morning. Branch topiramate 2021-05 Yes [id number] 100mg Take 4 [facility] 25 mg 0-21 tablets by [facility] of tablet 00:00: mouth in [place] 00 the Medical morning. Branch topiramate 2021-05 Yes [id number] 100mg Take 4 [facility] 25 mg 0-21 tablets by [facility] of tablet 00:00: mouth in [place] the Medical morning. Branch topiramate 2021-05 Yes [id number] 100mg Take 4 [facility] 25 mg 0-21 tablets by [facility] of tablet 00:00: mouth in [place] the Medical morning. Branch topiramate 2021-05 Yes [id number] 100mg Take 4 [facility] 25 mg 0-21 tablets by [facility]y of tablet 00:00: mouth in [place] the Medical morning. Branch topiramate 2021-05 Yes [id number] 100mg Take 4 [facility] 25 mg 0-21 tablets by [facility]y of tablet 00:00: mouth in [place] the Medical morning. Branch topiramate 2021-05 Yes [id number] 100mg Take 4 [facility] 25 mg 0-21 tablets by [facility]y of tablet 00:00: mouth in [place] the Medical morning. Branch topiramate 2021-05 Yes [id number] 100mg Take 4 [facility] 25 mg 0-21 tablets by [facility]y of tablet 00:00: mouth in [place] 00 the Medical morning. Branch diphenhydrA 2021-05- [...] 28 :00 Medical Branch albuterol 2021-05 Yes [id number] 2{puff} Inhale 2 [facility] 90 0-18 Puffs ity of mcg/actuati 00:00: every 6 [place] on inhaler 00 (six) Medical hours as Branch needed for Wheezing or Shortness of Breath. albuterol 2021-05 Yes [id number] 2{puff} Inhale 2 [facility] 90 0-18 Puffs ity of mcg/actuati 00:00: every 6 [place] on inhaler 00 (six) Medical hours as Branch needed for Wheezing or Shortness of Breath. albuterol 2021-05 Yes [id number] 2{puff} Inhale 2 [facility] 90 0-18 Puffs ity of mcg/actuati 00:00: every 6 [place] on inhaler 00 (six) Medical hours as Branch needed for Wheezing or Shortness of Breath. albuterol 2021-05 Yes [id number] 2{puff} Inhale 2 [facility] 90 0-18 Puffs ity of mcg/actuati 00:00: every 6 [place] on inhaler 00 (six) Medical hours as Branch needed for Wheezing or Shortness of Breath. albuterol 2021-05 Yes [id number] 2{puff} Inhale 2 [facility] 90 0-18 Puffs ity of mcg/actuati 00:00: every 6 [place] on inhaler 00 (six) Medical hours as Branch needed for Wheezing or Shortness of Breath. albuterol 2021-05 Yes [id number] 2{puff} Inhale 2 [facility] 90 0-18 Puffs ity of mcg/actuati 00:00: every 6 [place] on inhaler 00 (six) Medical hours as Branch needed for Wheezing or Shortness of Breath. albuterol 2021-05 Yes [id number] 2{puff} Inhale 2 [facility] 90 0-18 Puffs ity of mcg/actuati 00:00: every 6 [place] on inhaler 00 (six) Medical hours as Branch needed for Wheezing or Shortness of Breath. albuterol 2021-05 Yes [id number] 2{puff} Inhale 2 [facility] 90 0-18 Puffs ity of mcg/actuati 00:00: every 6 [place] as on inhaler 00 (six) Medical hours as Branch needed for Wheezing or Shortness of Breath. albuterol 2021-05 Yes [id number] 2{puff} Inhale 2 [facility] 90 0-18 Puffs ity of mcg/actuati 00:00: every 6 [place] on inhaler 00 (six) Medical hours as Branch needed for Wheezing or Shortness of Breath. albuterol 2021-05 Yes [id number] 2{puff} Inhale 2 [facility] 90 0-18 Puffs ity of mcg/actuati 00:00: every 6 [place] on inhaler 00 (six) Medical hours as Branch needed for Wheezing or Shortness of Breath. albuterol 2021-05 Yes [id number] 2{puff} Inhale 2 [facility] 90 0-18 Puffs ity of mcg/actuati 00:00: every 6 [place] as on inhaler 00 (six) Medical hours as Branch needed for Wheezing or Shortness of Breath. albuterol 2021-05 Yes [id number] 2{puff} Inhale 2 [facility] 90 0-18 Puffs ity of mcg/actuati 00:00: every 6 [place] on inhaler 00 (six) Medical hours as Branch needed for Wheezing or Shortness of Breath. albuterol 2021-05 Yes [id number] 2{puff} Inhale 2 [facility] 90 0-18 Puffs ity of mcg/actuati 00:00: every 6 [place] on inhaler 00 (six) Medical hours as Branch needed for Wheezing or Shortness of Breath. albuterol 2021-05 Yes [id number] 2{puff} Inhale 2 [facility] 90 0-18 Puffs ity of mcg/actuati 00:00: every 6 [place] on inhaler 00 (six) Medical hours as Branch needed for Wheezing or Shortness of Breath. albuterol 2021-05 Yes [id number] 2{puff} Inhale 2 [facility] 90 0-18 Puffs ity of mcg/actuati 00:00: every 6 [place] on inhaler 00 (six) Medical hours as Branch needed for Wheezing or Shortness of Breath. albuterol 2021-05 Yes [id number] 2{puff} Inhale 2 [facility] 90 0-18 Puffs ity of mcg/actuati 00:00: every 6 [place] on inhaler 00 (six) Medical hours as Branch needed for Wheezing or Shortness of Breath. albuterol 2021-05 Yes [id number] 2{puff} Inhale 2 [facility] 90 0-18 Puffs ity of mcg/actuati 00:00: every 6 [place] on inhaler 00 (six) Medical hours as Branch needed for Wheezing or Shortness of Breath. albuterol 2021-05 Yes [id number] 2{puff} Inhale 2 [facility] 90 0-18 Puffs ity of mcg/actuati 00:00: every 6 [place] on inhaler 00 (six) Medical hours as Branch needed for Wheezing or Shortness of Breath. albuterol 2021-05 Yes [id number] 2{puff} Inhale 2 [facility] 90 0-18 Puffs ity of mcg/actuati 00:00: every 6 [place] on inhaler 00 (six) Medical hours as Branch needed for Wheezing or Shortness of Breath. albuterol 2021-05 Yes [id number] 2{puff} Inhale 2 [facility] 90 0-18 Puffs ity of mcg/actuati 00:00: every 6 [place] on inhaler 00 (six) Medical hours as Branch needed for Wheezing or Shortness of Breath. albuterol 2021-05 Yes [id number] 2{puff} Inhale 2 [facility] 90 0-18 Puffs ity of mcg/actuati 00:00: every 6 [place] on inhaler 00 (six) Medical hours as Branch needed for Wheezing or Shortness of Breath. albuterol 2021-05 Yes [id number] 2{puff} Inhale 2 [facility] 90 0-18 Puffs ity of mcg/actuati 00:00: every 6 [place] on inhaler 00 (six) Medical hours as Branch needed for Wheezing or Shortness of Breath. albuterol 2021-05 Yes [id number] 2{puff} Inhale 2 [facility] 90 0-18 Puffs ity of mcg/actuati 00:00: every 6 [place] on inhaler 00 (six) Medical hours as Branch needed for Wheezing or Shortness of Breath. albuterol 2021-05 Yes [id number] 2{puff} Inhale 2 [facility] 90 0-18 Puffs ity of mcg/actuati 00:00: every 6 [place] on inhaler 00 (six) Medical hours as Branch needed for Wheezing or Shortness of Breath. albuterol 2021-05 Yes [id number] 2{puff} Inhale 2 [facility] 90 0-18 Puffs ity of mcg/actuati 00:00: every 6 [place] on inhaler 00 (six) Medical hours as Branch needed for Wheezing or Shortness of Breath. albuterol 2021-05 Yes [id number] 2{puff} Inhale 2 [facility] 90 0-18 Puffs ity of mcg/actuati 00:00: every 6 [place] on inhaler 00 (six) Medical hours as Branch needed for Wheezing or Shortness of Breath. albuterol 2021-05 Yes [id number] 2{puff} Inhale 2 [facility] 90 0-18 Puffs ity of mcg/actuati 00:00: every 6 [place] on inhaler 00 (six) Medical hours as Branch needed for Wheezing or Shortness of Breath. albuterol 2021-05 Yes [id number] 2{puff} Inhale 2 [facility] 90 0-18 Puffs ity of mcg/actuati 00:00: every 6 [place] on inhaler 00 (six) Medical hours as Branch needed for Wheezing or Shortness of Breath. albuterol 2021-05 Yes [id number] 2{puff} Inhale 2 [facility] 90 0-18 Puffs ity of mcg/actuati 00:00: every 6 [place] on inhaler 00 (six) Medical hours as Branch needed for Wheezing or Shortness of Breath. albuterol 2021-05 Yes [id number] 2{puff} Inhale 2 [facility] 90 0-18 Puffs ity of mcg/actuati 00:00: every 6 [place] on inhaler 00 (six) Medical hours as Branch needed for Wheezing or Shortness of Breath. albuterol 2021-05 Yes [id number] 2{puff} Inhale 2 [facility] 90 0-18 Puffs ity of mcg/actuati 00:00: every 6 [place] on inhaler 00 (six) Medical hours as Branch needed for Wheezing or Shortness of Breath. albuterol 2021-05 Yes [id number] 2{puff} Inhale 2 [facility] 90 0-18 Puffs ity of mcg/actuati 00:00: every 6 [place] on inhaler 00 (six) Medical hours as Branch needed for Wheezing or Shortness of Breath. albuterol 2021-05 Yes [id number] 2{puff} Inhale 2 [facility] 90 0-18 Puffs ity of mcg/actuati 00:00: every 6 [place] on inhaler 00 (six) Medical hours as Branch needed for Wheezing or Shortness of Breath. albuterol 2021-05 Yes [id number] 2{puff} Inhale 2 [facility] 90 0-18 Puffs ity of mcg/actuati 00:00: every 6 [place] on inhaler 00 (six) Medical hours as Branch needed for Wheezing or Shortness of Breath. albuterol 2021-05 Yes [id number] 2{puff} Inhale 2 [facility] 90 0-18 Puffs ity of mcg/actuati 00:00: every 6 [place] on inhaler 00 (six) Medical hours as Branch needed for Wheezing or Shortness of Breath. albuterol 2021-05 Yes [id number] 2{puff} Inhale 2 [facility] 90 0-18 Puffs ity of mcg/actuati 00:00: every 6 [place] on inhaler 00 (six) Medical hours as Branch needed for Wheezing or Shortness of Breath. albuterol 2021-05 Yes [id number] 2{puff} Inhale 2 [facility] 90 0-18 Puffs ity of mcg/actuati 00:00: every 6 [place] on inhaler 00 (six) Medical hours as Branch needed for Wheezing or Shortness of Breath. albuterol 2021-05 Yes [id number] 2{puff} Inhale 2 [facility] 90 0-18 Puffs ity of mcg/actuati 00:00: every 6 [place] on inhaler 00 (six) Medical hours as Branch needed for Wheezing or Shortness of Breath. albuterol 2021-05 Yes [id number] 2{puff} Inhale 2 [facility] 90 0-18 Puffs ity of mcg/actuati 00:00: every 6 [place] on inhaler 00 (six) Medical hours as Branch needed for Wheezing or Shortness of Breath. albuterol 2021-05 Yes [id number] 2{puff} Inhale 2 [facility] 90 0-18 Puffs ity of mcg/actuati 00:00: every 6 [place] on inhaler 00 (six) Medical hours as Branch needed for Wheezing or Shortness of Breath. albuterol 2021-05 Yes [id number] 2{puff} Inhale 2 [facility] 90 0-18 Puffs ity of mcg/actuati 00:00: every 6 [place] on inhaler 00 (six) Medical hours as Branch needed for Wheezing or Shortness of Breath. albuterol 2021-05 Yes [id number] 2{puff} Inhale 2 [facility] 90 0-18 Puffs ity of mcg/actuati 00:00: every 6 [place] on inhaler 00 (six) Medical hours as Branch needed for Wheezing or Shortness of Breath. albuterol 2021-05 Yes [id number] 2{puff} Inhale 2 [facility] 90 0-18 Puffs ity of mcg/actuati 00:00: every 6 [place] on inhaler 00 (six) Medical hours as Branch needed for Wheezing or Shortness of Breath. albuterol 2021-05 Yes [id number] 2{puff} Inhale 2 [facility] 90 0-18 Puffs ity of mcg/actuati 00:00: every 6 [place] on inhaler 00 (six) Medical hours as Branch needed for Wheezing or Shortness of Breath. albuterol 2021-05 Yes [id number] 2{puff} Inhale 2 [facility] 90 0-18 Puffs ity of mcg/actuati 00:00: every 6 [place] on inhaler 00 (six) Medical hours as Branch needed for Wheezing or Shortness of Breath. albuterol 2021-05 Yes [id number] 2{puff} Inhale 2 [facility] 90 0-18 Puffs ity of mcg/actuati 00:00: every 6 [place] on inhaler 00 (six) Medical hours as Branch needed for Wheezing or Shortness of Breath. albuterol 2021-05 Yes [id number] 2{puff} Inhale 2 [facility] 90 0-18 Puffs ity of mcg/actuati 00:00: every 6 [place] on inhaler 00 (six) Medical hours as Branch needed for Wheezing or Shortness of Breath. albuterol 2021-05 Yes [id number] 2{puff} Inhale 2 [facility] 90 0-18 Puffs ity of mcg/actuati 00:00: every 6 [place] on inhaler 00 (six) Medical hours as Branch needed for Wheezing or Shortness of Breath. albuterol 2021-05 Yes [id number] 2{puff} Inhale 2 [facility] 90 0-18 Puffs [...] a 24 hour period. benzonatate 2021-05- No [id number] 200mg Take 1 [facility] 200 mg 0-18 10-26 capsule by ity of capsule 00:00: 04:59 mouth 3 [place] 00 :00 (three) Medical times Branch daily as needed for Cough for up to 7 days. benzonatate 2021-05- No [id number] 200mg Take 1 [facility] 200 mg 0-18 10-26 capsule by ity of capsule 00:00: 04:59 mouth 3 [place] 00 :00 (three) Medical times Branch daily as needed for Cough for up to 7 days. benzonatate 2021-05- No [id number] 200mg Take 1 [facility] 200 mg 0-18 10-26 capsule by ity of capsule 00:00: 04:59 mouth 3 [place] 00 :00 (three) Medical times Branch daily as needed for Cough for up to 7 days. benzonatate 2021-05- No [id number] 200mg Take 1 [facility] 200 mg 0-18 10-26 capsule by ity of capsule 00:00: 04:59 mouth 3 [place] 00 :00 (three) Medical times Branch daily as needed for Cough for up to 7 days. benzonatate 2021-05- No [id number] 200mg Take 1 [facility] 200 mg 0-18 10-26 capsule by ity of capsule 00:00: 04:59 mouth 3 [place] 00 :00 (three) Medical times Branch daily as needed for Cough for up to 7 days. benzonatate 2021-05- No [id number] 200mg Take 1 [facility] 200 mg 0-18 10-26 capsule by ity of capsule 00:00: 04:59 mouth 3 [place] 00 :00 (three) Medical times [place] daily as needed for Cough for up to 7 days. SUMAtriptan 2021-05 No [id number] 50mg Take 1 [facility] 50 mg 0- 9105 tablet by [facility] of tablet 00:00: 04:59 mouth [place] 00 :[place] now for 1 Medical dose. [place] SUMAtriptan 2021-05 No [id number] 50mg Take 1 [facility] 50 mg [id number] tablet by it[facility] of tablet 00:00: 04:59 mouth [place] 00 :[place] now for 1 Medical dose. [place] butalbital- 2021-05 No 1{tbl} 1 tablet, [facility] acetaminoph 0-12 10-12 Oral, ity of en-caff 08:15: 08:09 ONCE, 1 [place] (ESGIC) 00 :00 dose, On Medical 50-325-40 [facility] Branch mg tablet 1 02/21/22 tablet at 0315, [place] butorphanol 2021-05 No 1mg 1 mg, IV U nivers (STADOL) 012 -12 Push, ity of injection 1 08:15: 07:28 ONCE, 1 [place] mg 00 :00 dose, On Medical [facility] 02/21/22 at 0315, Routine NaCl 0.9% 2021-05 No 1000mL at 999 Uni vers (NS) bolus 0-12 10-12 mL/hr, ity of infusion 07:15: 08:40 1,000 mL, [place] 1,000 mL 00 :00 IV Medical Infusion, [place] ONCE, 1 dose, On [facility] 02/21/22 at 0215, [place] proMETHazin 2021-05 No 12.5mg 12.5 mg, Univers e 0-12 10-12 IV ity of (PHENERGAN) 06:30: 06:38 Piggyback, [place] 12.5 mg in 00 :00 ONCE, 1 Medica l NaCl 0.9% dose, On [place] (NS) 50 mL [facility] IV 02/21/22 piggyback at 0130, [place] dexamethaso 2021-05 No 10mg 10 mg, Uni vers ne sod phos 0-12 10-12 Slow IV ity of PF 06:30: 06:38 Push, [place] injection 00 :00 ONCE, 1 Medical 10 mg dose, On Branch Sat02/21/22 at 0130, 1 mL ketorolac 2021-05- No 15mg 15 mg, Unive rs (TORADOL) 002-21 Slow IV ity of injection 06:30: 06:38 Push, [place] 15 mg 00 :00 ONCE, 1 Medical dose, On Branch Sat02/21/22 at 0130, [place] diphenhydrA 2021-05- No 25mg 25 mg, Uni vers MINE 02-21 Slow IV ity of (BENADRYL) 06:30: 06:38 Push, [place] injection 00 :00 ONCE, 1 Medical 25 mg dose, On Branch Sat02/21/22 at 0130, STAT FENTanyl PF 2021-05- No 50ug 50 mcg, Un sushant (SUBLIMAZE 02-18 Slow IV ity o f (PF)) 20:30: 19:44 Push, [place] injection 00 :00 ONCE, 1 Medical 50 mcg dose, On Branch [place] 02/18/22 at 1530, Routine ketorolac 2021-05 No 30mg 30 mg, Unive rs (TORADOL) 02-18 Slow IV ity of injection 20:15: 20:09 Push, [place] 30 mg 00 :00 ONCE, 1 Medical dose, On Branch [place] 02/18/22 at 1515, [place] iopamidol 2021-05 No [id number] 60mL 60 mL, Un sushant (ISOVUE 02-18 [...] 1 Medical 50 mcg dose, On Branch [place] 02/18/22 at 1300, Routine ondansetron 2021-05- No 4mg 4 mg, Slow Univers (ZOFRAN 02-18 IV Push, ity of (PF)) 17:15: 17:27 ONCE, 1 [place] injection 4 00 :00 dose, On Medi yessi mg [facility] 02/18/22 at 1215, [place] morpHINE (2 2021- No 4mg 4 mg, Slow Univers mg/mL) 01-18 IV Push, ity of injection 4 15:15: 14:49 ONCE, 1 [place] mg 00 :00 dose, On [facility] 01/18/22 Branch at 1015, STAT ondansetron 2021- No 4mg 4 mg, Slow Univers (ZOFRAN 01-18 IV Push, ity of (PF)) 13:30: 13:33 ONCE, 1 [place] injection 4 00 :00 dose, On Medi yessi mg [facility] 01/18/22 Branch at 0830, [place] morpHINE (4 2021- No 4mg 4 mg, Slow Univers mg/mL) 01-18 IV Push, ity of injection 4 13:30: 13:34 ONCE, 1 [place] mg 00 :00 dose, On [facility] 01/18/22 Branch at 0830, STAT morpHINE (4 2021- No 4mg 4 mg, Slow Univers mg/mL) 01-18 IV Push, ity of injection 4 12:30: 11:39 ONCE, 1 [place] mg 00 :00 dose, On [facility] 01/18/22 Branch at 0730, STAT famotidine 2021-2021- No 20mg 20 mg, Univ ers (PEPCID 01-18 Slow IV ity of (PF)) 11:30: 10:52 Push, [place] injection 00 :00 ONCE, 1 Medical 20 mg dose, On [facility] 01/18/22 at 0630, [place] ondansetron 2021- No 4mg 4 mg, Slow Univers (ZOFRAN 01-18 IV Push, ity of (PF)) 11:30: 10:52 ONCE, 1 [place] injection 4 00 :00 dose, On Medi yessi mg [place] 01/18/22 Branch at 0630, [place] iodixanoL 2021-0 2021- No [id number] 80mL 80 mL, U nivers (VISIPAQUE 01-18 [...] Indication s: acute pain ondansetron 2021-0 Yes [id number] 4mg Take 1 Univers 4 mg 01-18 [id number] tablet by ity of disintegrat 00:00: mouth [place] ing tablet 00 every 8 Medica l (eight) Branch hours as needed for Nausea and Vomiting (N/V). ibuprofen 2021-0 Yes [id number] 600mg Take 1 Univers 600 mg 01-18 [id number] tablet by ity of tablet 00:00: mouth [place] 00 every 6 Medical (six) Branch hours as needed for Pain (scale 4-6). traMADoL 50 2022-0 Yes [id number] 50mg Take 1 Univ ers mg tablet 9-08 tablet by ity o f 00:00: mouth [place] 00 every 6 Medical (six) Branch hours as needed for Pain (scale 7-10). Indication s: acute pain ondansetron 2022-0 Yes [id number] 4mg Take 1 Univers 4 mg 9-08 [id number] tablet by ity of disintegrat 00:00: mouth [place] ing tablet 00 every 8 Medica l (eight) Branch hours as needed for Nausea and Vomiting (N/V). ibuprofen 2022-0 Yes [id number] 600mg Take 1 Univers 600 mg 9-08 [id number] tablet by ity of tablet 00:00: mouth [place] 00 every 6 Medical (six) Branch hours as needed for Pain (scale 4-6). traMADoL 50 2021-0 Yes [id number] 50mg Take 1 Univ ers mg tablet 9-08 tablet by ity o f 00:00: mouth [place] 00 every 6 Medical (six) Branch hours as needed for Pain (scale 7-10). Indication s: acute pain ondansetron 2022-0 Yes [id number] 4mg Take 1 Univers 4 mg 9-08 [id number] tablet by ity of disintegrat 00:00: mouth [place] ing tablet 00 every 8 Medica l (eight) Branch hours as needed for Nausea and Vomiting (N/V). ibuprofen 2022-0 Yes [id number] 600mg Take 1 Univers 600 mg 9-08 [id number] tablet by ity of tablet 00:00: mouth [place] 00 every 6 Medical (six) Branch hours as needed for Pain (scale 4-6). traMADoL 50 2-0 Yes [id number] 50mg Take 1 Univ ers mg tablet 9-08 tablet by ity o f 00:00: mouth [place] 00 every 6 Medical (six) Branch hours as needed for Pain (scale 7-10). Indication s: acute pain ondansetron 2022-0 Yes [id number] 4mg Take 1 Univers 4 mg 9-08 [id number] tablet by ity of disintegrat 00:00: mouth [place] ing tablet 00 every 8 Medica l (eight) Branch hours as needed for Nausea and Vomiting (N/V). ibuprofen 2022-0 Yes [id number] 600mg Take 1 Univers 600 mg 9-08 [id number] tablet by ity of tablet 00:00: mouth [place] 00 every 6 Medical (six) Branch hours as needed for Pain (scale 4-6). traMADoL 50 2022-0 Yes [id number] 50mg Take 1 Univ ers mg tablet 9-08 tablet by ity o f 00:00: mouth [place] 00 every 6 Medical (six) Branch hours as needed for Pain (scale 7-10). Indication s: acute pain ondansetron 2022-0 Yes [id number] 4mg Take 1 Univers 4 mg 9-08 [id number] tablet by ity of disintegrat 00:00: mouth [place] ing tablet 00 every 8 Medica l (eight) Branch hours as needed for Nausea and Vomiting (N/V). ibuprofen 2022-0 Yes [id number] 600mg Take 1 Univers 600 mg 9-08 [id number] tablet by ity of tablet 00:00: mouth [place] 00 every 6 Medical (six) Branch hours as needed for Pain (scale 4-6). traMADoL 50 2-0 Yes [id number] 50mg Take 1 Univ ers mg tablet 9-08 tablet by ity o f 00:00: mouth [place] 00 every 6 Medical (six) Branch hours as needed for Pain (scale 7-10). Indication s: acute pain ondansetron 2022-0 Yes [id number] 4mg Take 1 Univers 4 mg 9-08 [id number] tablet by ity of disintegrat 00:00: mouth [place] ing tablet 00 every 8 Medica l (eight) Branch hours as needed for Nausea and Vomiting (N/V). ibuprofen 2022-0 Yes [id number] 600mg Take 1 Univers 600 mg 9-08 [id number] tablet by ity of tablet 00:00: mouth [place] 00 every 6 Medical (six) Branch hours as needed for Pain (scale 4-6). traMADoL 50 2022-0 Yes [id number] 50mg Take 1 Univ ers mg tablet 9-08 tablet by ity o f 00:00: mouth [place] 00 every 6 Medical (six) Branch hours as needed for Pain (scale 7-10). Indication s: acute pain ondansetron 2022-0 Yes [id number] 4mg Take 1 Univers 4 mg 9-08 [id number] tablet by ity of disintegrat 00:00: mouth [place] ing tablet 00 every 8 Medica l (eight) Branch hours as needed for Nausea and Vomiting (N/V). ibuprofen 2022-0 Yes [id number] 600mg Take 1 Univers 600 mg 9-08 [id number] tablet by ity of tablet 00:00: mouth [place] 00 every 6 Medical (six) Branch hours as needed for Pain (scale 4-6). traMADoL 50 0 Yes [id number] 50mg Take 1 Univ ers mg tablet 9-08 tablet by ity o f 00:00: mouth [place] 00 every 6 Medical (six) Branch hours as needed for Pain (scale 7-10). Indication s: acute pain ondansetron Yes [id number] 4mg Take 1 Univers 4 mg 9- [id number] tablet by ity of disintegrat 00:00: mouth [place] ing tablet 00 every 8 Medica l (eight) Branch hours as needed for Nausea and Vomiting (N/V). ibuprofen Yes [id number] 600mg Take 1 Univers 600 mg 9- [id number] tablet by ity of tablet 00:00: mouth [place] 00 every 6 Medical (six) Branch hours as needed for Pain (scale 4-6). traMADoL 50 2021- No [id number] 50mg Take 1 Uni vers mg tablet 01-18-18 tablet by ity of 00:00: 00:00 mouth [place] 00 :00 every 6 Medical (six) Branch hours as needed for Pain (scale 7-10). Indication s: acute pain ondansetron 2021- No [id number] 4mg Take 1 Univers 4 mg 9-02-27 [id number] tablet by ity of disintegrat 00:00: 00:00 [place] tablet 00 :00 every 8 Medica l (eight) Branch hours as needed for Nausea and Vomiting (N/V). ibuprofen 2021- No [id number] 600mg Take 1 Univers 600 mg 9- 10-18 [id number] tablet by ity o f tablet 00:00: [...] Indication s: acute pain ondansetron 2021-2021- No [id number] 4mg Take 1 Univers 4 mg 01-18 [id number] tablet by ity of disintegrat 00:00: 00:00 [place] tablet 00 :00 every 8 Medica l (eight) Branch hours as needed for Nausea and Vomiting (N/V). ibuprofen 2021- No [id number] 600mg Take 1 Univers 600 mg 01-18 [id number] tablet by ity o f tablet 00:00: [...] Indication s: acute pain ondansetron 2021- No [id number] 4mg Take 1 Univers 4 mg 01-18 [id number] tablet by ity of disintegrat 00:00: 00:00 [place] tablet 00 :00 every 8 Medica l (eight) Branch hours as needed for Nausea and Vomiting (N/V). ibuprofen 2021- No [id number] 600mg Take 1 Univers 600 mg 01-18 [id number] tablet by ity o f tablet 00:00: [...] Indication s: acute pain ondansetron 2021-2021- No [id number] 4mg Take 1 Univers 4 mg 01-18 [id number] tablet by ity of disintegrat 00:00: 00:00 [place] tablet 00 :00 every 8 Medica l (eight) Branch hours as needed for Nausea and Vomiting (N/V). ibuprofen 2021- No [id number] 600mg Take 1 Univers 600 mg 01-18 [id number] tablet by ity o f tablet 00:00: 00:00 mouth [place] 00 :00 every 6 Medical (six) Branch hours as needed for Pain (scale 4-6). predniSONE 2021- No [id number] 40mg Take 2 Univers 20 mg 01-16 tablets by ity of tablet 00:00: 04:59 mouth in [place] 00 :00 the [facility] for 7 days. predniSONE 2021- No [id number] 40mg Take 2 Univers 20 mg 01-16 tablets by ity of tablet 00:00: 04:59 mouth in [place] 00 :00 [facility] for 7 days. morpHINE (4 No 4mg 4 mg, Slow Univers mg/mL) 01-15 IV Push, ity of injection 4 16:15: 15:28 ONCE, 1 [place] mg 00 :00 dose, On Medical [facility] 01/15/22 Branch at 1115, [place] proMETHazin No 12.5mg 12.5 mg, Univers e 01-15 IV ity of (PHENERGAN) 15:30: 15:28 Piggyback, [place] 12.5 mg in 00 :00 ONCE, 1 Medica l NaCl 0.9% dose, On Branch (NS) 50 mL Sat01/15/22 IV at 1030, piggyback [place] NaCl 0.9% No 1000mL at 999 Uni vers (NS) bolus 01-15 mL/hr, ity of infusion 15:00: 15:38 1,000 mL, [place] 1,000 mL 00 :00 IV Medical Infusion, Branch ONCE, 1 dose, On [facility] 01/15/22 at 1000, [place] morpHINE (4 No 4mg 4 mg, Slow Univers mg/mL) 01-15 IV Push, ity of injection 4 15:00: 14:37 ONCE, 1 [place] mg 00 :00 dose, On Medical [facility] 01/15/22 Branch at 1000, [place] ondansetron 2021- [...] at 0915, 1 mL proMETHazin 0 Yes [id number] 25mg Take 1 Univers e 25 mg 9-05 tablet by ity of tablet 00:00: mouth [place] 00 every 6 Medical (six) Branch hours as needed for Nausea and Vomiting (N/V). proMETHazin 0 Yes [id number] 25mg Take 1 Univers e 25 mg 9-05 tablet by ity of tablet 00:00: mouth [place] 00 every 6 Medical (six) Branch hours as needed for Nausea and Vomiting (N/V). proMETHazin 2021-0 Yes [id number] 25mg Take 1 Univers e 25 mg 9-05 tablet by ity of tablet 00:00: mouth [place] 00 every 6 Medical (six) Branch hours as needed for Nausea and Vomiting (N/V). proMETHazin 2021-0 Yes [id number] 25mg Take 1 Univers e 25 mg 9-05 tablet by ity of tablet 00:00: mouth [place] 00 every 6 Medical (six) Branch hours as needed for Nausea and Vomiting (N/V). proMETHazin 2021-0 Yes [id number] 25mg Take 1 Univers e 25 mg 9-05 tablet by ity of tablet 00:00: mouth [place] 00 every 6 Medical (six) Branch hours as needed for Nausea and Vomiting (N/V). proMETHazin 2021-0 Yes [id number] 25mg Take 1 Univers e 25 mg 9-05 tablet by ity of tablet 00:00: mouth [place] 00 every 6 Medical (six) Branch hours as needed for Nausea and Vomiting (N/V). proMETHazin 2021-0 Yes [id number] 25mg Take 1 Univers e 25 mg 9-05 tablet by ity of tablet 00:00: mouth [place] 00 every 6 Medical (six) Branch hours as needed for Nausea and Vomiting (N/V). proMETHazin 0 Yes [id number] 25mg Take 1 Univers e 25 mg 9-05 tablet by ity of tablet 00:00: mouth [place] 00 every 6 Medical (six) Branch hours as needed for Nausea and Vomiting (N/V). proMETHazin 0 Yes [id number] 25mg Take 1 Univers e 25 mg 9-05 tablet by ity of tablet 00:00: mouth [place] 00 every 6 Medical (six) Branch hours as needed for Nausea and Vomiting (N/V). proMETHazin 2021- No [id number] 25mg Take 1 Univers e 25 mg 9-05 10-18 tablet by ity of tablet 00:00: 00:00 mouth [place] 00 :00 every 6 Medical (six) Branch hours as needed for Nausea and Vomiting (N/V). proMETHazin 2021- No [id number] 25mg Take 1 Univers e 25 mg 9-05 10-18 tablet by ity of tablet 00:00: 00:00 mouth [place] 00 :00 every 6 Medical (six) Branch hours as needed for Nausea and Vomiting (N/V). proMETHazin 2021- No [id number] 25mg Take 1 Univers e 25 mg 9-05 10-18 tablet by ity of tablet 00:00: 00:00 mouth [place] 00 :00 every 6 Medical (six) Branch hours as needed for Nausea and Vomiting (N/V). proMETHazin 2021- No [id number] 25mg Take 1 Univers e 25 mg [...] No 1{tbl} 1 tablet, Univers -acetaminop 8-30 Oral, ity of hen (NORCO 00:45: 00:37 [...] Branch 01/08/22 at 1845, [place] ondansetron Yes [id number] 4mg Take 1 Univers 4 mg 8-29 tablet by ity of disintegrat 00:00: mouth [place] ing tablet 00 every 8 Medica l (eight) Branch hours as needed for Nausea and Vomiting (N/V). acetaminoph Yes [id number] 650mg Take 1 Univers en (TYLENOL 8-29 tablet by ity of ARTHRITIS 00:00: mouth [place] PAIN) 650 00 every 8 Medical mg CR (eight) Branch tablet hours as needed for Pain. ketorolac 0 Yes [id number] 10mg Take 1 U nivers 10 mg 8-29 tablet by ity of tablet 00:00: mouth [place] 00 every 6 Medical (six) Branch hours as needed for Pain (scale 4-6) or Pain (scale 7-10). metaxalone 0 Yes [id number] 800mg Take 1 Univers (SKELAXIN) 8-29 tablet by ity of 800 mg 00:00: mouth in [place] tablet 00 the Medical morning Branch and 1 tablet at noon and 1 tablet in the evening. ondansetron 2022-0 Yes [id number] 4mg Take 1 Univers 4 mg 8-29 tablet by ity of disintegrat 00:00: mouth [place] ing tablet 00 every 8 Medica l (eight) Branch hours as needed for Nausea and Vomiting (N/V). acetaminoph 2-0 Yes [id number] 650mg Take 1 Univers en (TYLENOL 8-29 tablet by ity of ARTHRITIS 00:00: mouth [place] PAIN) 650 00 every 8 Medical mg CR (eight) Branch tablet hours as needed for Pain. ketorolac 2-0 Yes [id number] 10mg Take 1 U nivers 10 mg 8-29 tablet by ity of tablet 00:00: mouth [place] 00 every 6 Medical (six) Branch hours as needed for Pain (scale 4-6) or Pain (scale 7-10). metaxalone 2-0 Yes [id number] 800mg Take 1 Univers (SKELAXIN) 8-29 tablet by ity of 800 mg 00:00: mouth in [place] tablet 00 the Medical morning Branch and 1 tablet at noon and 1 tablet in the evening. ondansetron 2021-0 Yes [id number] 4mg Take 1 Univers 4 mg 8-29 tablet by ity of disintegrat 00:00: mouth [place] ing tablet 00 every 8 Medica l (eight) Branch hours as needed for Nausea and Vomiting (N/V). acetaminoph 2021-0 Yes [id number] 650mg Take 1 Univers en (TYLENOL 8-29 tablet by ity of ARTHRITIS 00:00: mouth [place] PAIN) 650 00 every 8 Medical mg CR (eight) Branch tablet hours as needed for Pain. ketorolac 2-0 Yes [id number] 10mg Take 1 U nivers 10 mg 8-29 tablet by ity of tablet 00:00: mouth [place] 00 every 6 Medical (six) Branch hours as needed for Pain (scale 4-6) or Pain (scale 7-10). metaxalone 2022-0 Yes [id number] 800mg Take 1 Univers (SKELAXIN) 8-29 tablet by ity of 800 mg 00:00: mouth in [place] tablet 00 the Medical morning Branch and 1 tablet at noon and 1 tablet in the evening. ondansetron 2022-0 Yes [id number] 4mg Take 1 Univers 4 mg 8-29 tablet by ity of disintegrat 00:00: mouth [place] ing tablet 00 every 8 Medica l (eight) Branch hours as needed for Nausea and Vomiting (N/V). acetaminoph 2022-0 Yes [id number] 650mg Take 1 Univers en (TYLENOL 8-29 tablet by ity of ARTHRITIS 00:00: mouth [place] PAIN) 650 00 every 8 Medical mg CR (eight) Branch tablet hours as needed for Pain. ketorolac 2022-0 Yes [id number] 10mg Take 1 U nivers 10 mg 8-29 tablet by ity of tablet 00:00: mouth [place] 00 every 6 Medical (six) Branch hours as needed for Pain (scale 4-6) or Pain (scale 7-10). metaxalone 2022-0 Yes [id number] 800mg Take 1 Univers (SKELAXIN) 8-29 tablet by ity of 800 mg 00:00: mouth in [place] tablet 00 the Medical morning Branch and 1 tablet at noon and 1 tablet in the evening. ondansetron 2-0 Yes [id number] 4mg Take 1 Univers 4 mg 8-29 tablet by ity of disintegrat 00:00: mouth [place] ing tablet 00 every 8 Medica l (eight) Branch hours as needed for Nausea and Vomiting (N/V). acetaminoph 2022-0 Yes [id number] 650mg Take 1 Univers en (TYLENOL 8-29 tablet by ity of ARTHRITIS 00:00: mouth [place] PAIN) 650 00 every 8 Medical mg CR (eight) Branch tablet hours as needed for Pain. ketorolac 2022-0 Yes [id number] 10mg Take 1 U nivers 10 mg 8-29 tablet by ity of tablet 00:00: mouth [place] 00 every 6 Medical (six) Branch hours as needed for Pain (scale 4-6) or Pain (scale 7-10). metaxalone 2022-0 Yes [id number] 800mg Take 1 Univers (SKELAXIN) 8-29 tablet by ity of 800 mg 00:00: mouth in [place] tablet 00 the Medical morning Branch and 1 tablet at noon and 1 tablet in the evening. ondansetron 2022-0 Yes [id number] 4mg Take 1 Univers 4 mg 8-29 tablet by ity of disintegrat 00:00: mouth [place] ing tablet 00 every 8 Medica l (eight) Branch hours as needed for Nausea and Vomiting (N/V). acetaminoph 2022-0 Yes [id number] 650mg Take 1 Univers en (TYLENOL 8-29 tablet by ity of ARTHRITIS 00:00: mouth [place] PAIN) 650 00 every 8 Medical mg CR (eight) Branch tablet hours as needed for Pain. ketorolac 2022-0 Yes [id number] 10mg Take 1 U nivers 10 mg 8-29 tablet by ity of tablet 00:00: mouth [place] 00 every 6 Medical (six) Branch hours as needed for Pain (scale 4-6) or Pain (scale 7-10). metaxalone 2022-0 Yes [id number] 800mg Take 1 Univers (SKELAXIN) 8-29 tablet by ity of 800 mg 00:00: mouth in [place] tablet 00 the Medical morning Branch and 1 tablet at noon and 1 tablet in the evening. ondansetron 2-0 Yes [id number] 4mg Take 1 Univers 4 mg 8-29 tablet by ity of disintegrat 00:00: mouth [place] ing tablet 00 every 8 Medica l (eight) Branch hours as needed for Nausea and Vomiting (N/V). acetaminoph 2-0 Yes [id number] 650mg Take 1 Univers en (TYLENOL 8-29 tablet by ity of ARTHRITIS 00:00: mouth [place] PAIN) 650 00 every 8 Medical mg CR (eight) Branch tablet hours as needed for Pain. ketorolac 2022-0 Yes [id number] 10mg Take 1 U nivers 10 mg 8-29 tablet by ity of tablet 00:00: mouth [place] 00 every 6 Medical (six) Branch hours as needed for Pain (scale 4-6) or Pain (scale 7-10). metaxalone 2022-0 Yes [id number] 800mg Take 1 Univers (SKELAXIN) 8-29 tablet by ity of 800 mg 00:00: mouth in [place] tablet 00 the Medical morning Branch and 1 tablet at noon and 1 tablet in the evening. ondansetron 2022-0 Yes [id number] 4mg Take 1 Univers 4 mg 8-29 tablet by ity of disintegrat 00:00: mouth [place] ing tablet 00 every 8 Medica l (eight) Branch hours as needed for Nausea and Vomiting (N/V). acetaminoph 2022-0 Yes [id number] 650mg Take 1 Univers en (TYLENOL 8-29 tablet by ity of ARTHRITIS 00:00: mouth [place] PAIN) 650 00 every 8 Medical mg CR (eight) Branch tablet hours as needed for Pain. ketorolac 2021-0 Yes [id number] 10mg Take 1 U nivers 10 mg 8-29 tablet by ity of tablet 00:00: mouth [place] 00 every 6 Medical (six) Branch hours as needed for Pain (scale 4-6) or Pain (scale 7-10). metaxalone 2021-0 Yes [id number] 800mg Take 1 Univers (SKELAXIN) 8-29 tablet by ity of 800 mg 00:00: mouth in [place] tablet 00 the Medical morning Branch and 1 tablet at noon and 1 tablet in the evening. ondansetron 2021-0 Yes [id number] 4mg Take 1 Univers 4 mg 8-29 tablet by ity of disintegrat 00:00: mouth [place] ing tablet 00 every 8 Medica l (eight) Branch hours as needed for Nausea and Vomiting (N/V). acetaminoph 2021-0 Yes [id number] 650mg Take 1 Univers en (TYLENOL 8-29 tablet by ity of ARTHRITIS 00:00: mouth [place] PAIN) 650 00 every 8 Medical mg CR (eight) Branch tablet hours as needed for Pain. ketorolac 2021-0 Yes [id number] 10mg Take 1 U nivers 10 mg 8-29 tablet by ity of tablet 00:00: mouth [place] 00 every 6 Medical (six) Branch hours as needed for Pain (scale 4-6) or Pain (scale 7-10). metaxalone 2021-0 Yes [id number] 800mg Take 1 Univers (SKELAXIN) 8-29 tablet by ity of 800 mg 00:00: mouth in [place] tablet 00 the Medical morning Branch and 1 tablet at noon and 1 tablet in the evening. ondansetron 2021-0 Yes [id number] 4mg Take 1 Univers 4 mg 8-29 tablet by ity of disintegrat 00:00: mouth [place] ing tablet 00 every 8 Medica l (eight) Branch hours as needed for Nausea and Vomiting (N/V). acetaminoph 2021-0 Yes [id number] 650mg Take 1 Univers en (TYLENOL 8-29 tablet by ity of ARTHRITIS 00:00: mouth [place] PAIN) 650 00 every 8 Medical mg CR (eight) Branch tablet hours as needed for Pain. ketorolac 2021-0 Yes [id number] 10mg Take 1 U nivers 10 mg 8-29 tablet by ity of tablet 00:00: mouth [place] 00 every 6 Medical (six) Branch hours as needed for Pain (scale 4-6) or Pain (scale 7-10). metaxalone 2021-0 Yes [id number] 800mg Take 1 Univers (SKELAXIN) 8-29 tablet by ity of 800 mg 00:00: mouth in [place] tablet 00 the Medical morning Branch and 1 tablet at noon and 1 tablet in the evening. acetaminoph 2021-0 Yes [id number] 650mg Take 1 Univers en (TYLENOL 8-29 tablet by ity of ARTHRITIS 00:00: mouth [place] PAIN) 650 00 every 8 Medical mg CR (eight) Branch tablet hours as needed for Pain. acetaminoph 2021-0 Yes [id number] 650mg Take 1 Univers en (TYLENOL 8-29 tablet by ity of ARTHRITIS 00:00: mouth [place] PAIN) 650 00 every 8 Medical mg CR (eight) Branch tablet hours as needed for Pain. acetaminoph 2021-0 Yes [id number] 650mg Take 1 Univers en (TYLENOL 8-29 tablet by ity of ARTHRITIS 00:00: mouth [place] PAIN) 650 00 every 8 Medical mg CR (eight) Branch tablet hours as needed for Pain. acetaminoph 2021-0 Yes [id number] 650mg Take 1 Univers en (TYLENOL 8-29 tablet by ity of ARTHRITIS 00:00: mouth [place] PAIN) 650 00 every 8 Medical mg CR (eight) Branch tablet hours as needed for Pain. acetaminoph 2021-0 Yes [id number] 650mg Take 1 Univers en (TYLENOL 8-29 tablet by ity of ARTHRITIS 00:00: mouth [place] PAIN) 650 00 every 8 Medical mg CR (eight) Branch tablet hours as needed for Pain. acetaminoph 2021-0 Yes [id number] 650mg Take 1 Univers en (TYLENOL 8-29 tablet by ity of ARTHRITIS 00:00: mouth [place] PAIN) 650 00 every 8 Medical mg CR (eight) Branch tablet hours as needed for Pain. acetaminoph 2021-0 Yes [id number] 650mg Take 1 Univers en (TYLENOL 8-29 tablet by ity of ARTHRITIS 00:00: mouth [place] PAIN) 650 00 every 8 Medical mg CR (eight) Branch tablet hours as needed for Pain. acetaminoph 2021-0 Yes [id number] 650mg Take 1 Univers en (TYLENOL 8-29 tablet by ity of ARTHRITIS 00:00: mouth [place] PAIN) 650 00 every 8 Medical mg CR (eight) Branch tablet hours as needed for Pain. acetaminoph 0 Yes [id number] 650mg Take 1 Univers en (TYLENOL 8-29 tablet by ity of ARTHRITIS 00:00: mouth [place] PAIN) 650 00 every 8 Medical mg CR (eight) Branch tablet hours as needed for Pain. acetaminoph 0 Yes [id number] 650mg Take 1 Univers en (TYLENOL 8-29 tablet by ity of ARTHRITIS 00:00: mouth [place] PAIN) 650 00 every 8 Medical mg CR (eight) Branch tablet hours as needed for Pain. acetaminoph 0 Yes [id number] 650mg Take 1 Univers en (TYLENOL 8-29 tablet by ity of ARTHRITIS 00:00: mouth [place] PAIN) 650 00 every 8 Medical mg CR (eight) Branch tablet hours as needed for Pain. acetaminoph 0 Yes [id number] 650mg Take 1 Univers en (TYLENOL 8-29 tablet by ity of ARTHRITIS 00:00: mouth [place] PAIN) 650 00 every 8 Medical mg CR (eight) Branch tablet hours as needed for Pain. acetaminoph 0 Yes [id number] 650mg Take 1 Univers en (TYLENOL 8-29 tablet by ity of ARTHRITIS 00:00: mouth [place] PAIN) 650 00 every 8 Medical mg CR (eight) Branch tablet hours as needed for Pain. acetaminoph 0 Yes [id number] 650mg Take 1 Univers en (TYLENOL 8-29 tablet by ity of ARTHRITIS 00:00: mouth [place] PAIN) 650 00 every 8 Medical mg CR (eight) Branch tablet hours as needed for Pain. acetaminoph 0 Yes [id number] 650mg Take 1 Univers en (TYLENOL 8-29 tablet by ity of ARTHRITIS 00:00: mouth [place] PAIN) 650 00 every 8 Medical mg CR (eight) Branch tablet hours as needed for Pain. acetaminoph 2022-0 Yes [id number] 650mg Take 1 Univers en (TYLENOL 8-29 tablet by ity of ARTHRITIS 00:00: mouth [place] PAIN) 650 00 every 8 Medical mg CR (eight) Branch tablet hours as needed for Pain. acetaminoph 0 Yes [id number] 650mg Take 1 Univers en (TYLENOL 8-29 tablet by ity of ARTHRITIS 00:00: mouth [place] PAIN) 650 00 every 8 Medical mg CR (eight) Branch tablet hours as needed for Pain. acetaminoph 2021- No [id number] 650mg Take 1 [facility] en (TYLENOL 8-29 11-26 tablet by it y of ARTHRITIS 00:00: 00:00 mouth [place] PAIN) 650 00 :00 every 8 Medical mg CR (eight) Branch tablet hours as needed for Pain. ondansetron 2021- No [id number] 4mg Take 1 [facility] 4 mg 8-29 10-18 tablet by ity of disintegrat 00:00: 00:[place] tablet 00 :00 every 8 Medica l (eight) Branch hours as needed for Nausea and Vomiting (N/V). ketorolac 2021- No [id number] 10mg Take 1 [facility] 10 mg 8-29 10-18 tablet by ity of tablet 00:00: 00:00 mouth [place] 00 :00 every 6 Medical (six) Branch hours as needed for Pain (scale 4-6) or Pain (scale 7-10). metaxalone 2021- No [id number] 800mg Take 1 [facility] (SKELAXIN) 8-29 10-18 tablet by ity of 800 mg 00:00: 00:00 mouth in [place] tablet 00 :00 the Medical morning Branch and 1 tablet at noon and 1 tablet in the evening. ondansetron 2021-0 2021- No [id number] 4mg Take 1 [facility] 4 mg 8-29 10-18 tablet by ity of disintegrat 00:00: 00:00 [place] tablet 00 :00 every 8 Medica l (eight) Branch hours as needed for Nausea and Vomiting (N/V). ketorolac 2021-0 2021- No [id number] 10mg Take 1 [facility] 10 mg 8-29 10-18 tablet by ity of tablet 00:00: 00:00 mouth [place] 00 :00 every 6 Medical (six) Branch hours as needed for Pain (scale 4-6) or Pain (scale 7-10). metaxalone 2022-0 2022- No [id number] 800mg Take 1 [facility] (SKELAXIN) 8-29 10-18 tablet by ity of 800 mg 00:00: 00:00 mouth in [place] tablet 00 :00 the Medical morning Branch and 1 tablet at noon and 1 tablet in the evening. ondansetron 2022-0 2022- No [id number] 4mg Take 1 [facility] 4 mg 8-29 10-18 tablet by ity of disintegrat 00:00: 00:00 [place] 00 :00 every 8 Medica l (eight) Branch hours as needed for Nausea and Vomiting (N/V). ketorolac 2022-0 2022- No [id number] 10mg Take 1 [facility] 10 mg 8-29 10-18 tablet by ity of tablet 00:00: 00:00 mouth [place] 00 :00 every 6 Medical (six) Branch hours as needed for Pain (scale 4-6) or Pain (scale 7-10). metaxalone 2022-0 2022- No [id number] 800mg Take 1 [facility] (SKELAXIN) 8-29 10-18 tablet by ity of 800 mg 00:00: 00:00 mouth in [place] tablet 00 :00 the Medical morning Branch and 1 tablet at noon and 1 tablet in the evening. ondansetron 2022-0 2022- No [id number] 4mg Take 1 [facility] 4 mg 8-29 10-18 tablet by ity of disintegrat 00:00: 00:00 [place] tablet 00 :00 every 8 Medica l (eight) Branch hours as needed for Nausea and Vomiting (N/V). ketorolac 2022-0 2022- No [id number] 10mg Take 1 [facility] 10 mg 8-29 10-18 tablet by ity of tablet 00:00: 00:00 mouth [place] 00 :00 every 6 Medical (six) Branch hours as needed for Pain (scale 4-6) or Pain (scale 7-10). metaxalone 2022-0 2022- No [id number] 800mg Take 1 [facility] (SKELAXIN) 8-29 10-18 [...] Medical Branch citalopram 0 Yes Take by [facility] ers hydrobromid 12-12 mouth. ity of [...] ity o f capsule 13:03: every 6 [place] [address] (six) Medical hours as Branch needed for Allergies. carbamazepi 0 Yes Take by Uni vers ne 8-02 mouth. ity of (TEGRETOL 13:03: [place] ORAL) Medical Branch citalopram Yes Take by [facility] ers hydrobromid 8-02 mouth. ity of e 13:03: [place] (CITALOPRAM 04 Medical ORAL) Branch ALBUTEROL Yes Univers INHALE 8 ity of 13:03: [place] [address] Medical Branch diphenhydrA Yes 25mg Take 25 mg [facility] MINE 25 mg 02 by mouth ity o f capsule 13:03: every 6 [place] [address] (six) Medical hours as Branch needed for Allergies. carbamazepi 0 Yes Take by Uni vers ne 8-02 mouth. ity of (TEGRETOL 13:03: [place] ORAL) Medical Branch citalopram Yes Take by Univ ers hydrobromid 8-02 mouth. ity of e 13:03: [place] (CITALOPRAM 04 Medical ORAL) Branch ALBUTEROL 0 Yes [facility] INHALE 8 ity of 13:03: [place] [address] Medical Branch diphenhydrA Yes 25mg Take 25 mg [facility] MINE 25 mg 802 by mouth ity o f capsule 13:03: every 6 [place] [address] (six) Medical hours as Branch needed for Allergies. carbamazepi 0 Yes Take by [facility] vers ne 8-02 mouth. ity of (TEGRETOL 13:03: [place] ORAL) 04 Medical Branch citalopram Yes Take by [facility] ers hydrobromid 8-02 mouth. ity of e 13:03: [place] (CITALOPRAM 04 Medical ORAL) Branch ALBUTEROL 0 Yes [facility] INHALE 802 ity of 13:03: [place] [address] Medical Branch diphenhydrA Yes 25mg Take 25 mg [facility] MINE 25 mg 802 by mouth ity o f capsule 13:03: every 6 [place] [address] (six) Medical hours as Branch needed for Allergies. carbamazepi Yes Take by Uni vers ne 8-02 mouth. ity of (TEGRETOL 13:03: [place] ORAL) Medical Branch citalopram Yes Take by Univ ers hydrobromid 8-02 mouth. ity of e 13:03: [place] (CITALOPRAM 04 Medical ORAL) Branch ALBUTEROL Yes [facility] INHALE 8 ity of 13:03: [place] [address] Medical Branch diphenhydrA Yes 25mg Take 25 mg [facility] MINE 25 mg 12-12 by mouth ity o f capsule 13:03: every 6 [place] [address] (six) Medical hours as Branch needed for Allergies. carbamazepi Yes Take by [facility] vers ne 8-02 mouth. ity of (TEGRETOL 13:03: [place] ORAL) Medical Branch citalopram Yes Take by Univ ers hydrobromid 8-02 mouth. ity of e 13:03: [place] (CITALOPRAM 04 Medical ORAL) Branch ALBUTEROL 0 Yes Univers INHALE 12-12 ity of 13:03: [place] [address] Medical Branch diphenhydrA Yes 25mg Take 25 mg [facility] MINE 25 mg 12-12 by mouth ity o f capsule 13:03: every 6 [place] [address] (six) Medical hours as Branch needed for Allergies. carbamazepi 0 Yes Take by Uni vers ne 8-02 mouth. ity of (TEGRETOL 13:03: [place] ORAL) Medical Branch citalopram Yes Take by [facility] ers hydrobromid 8-02 mouth. ity of e 13:03: [place] (CITALOPRAM 04 Medical ORAL) Branch ALBUTEROL 0 Yes [facility] INHALE 8 ity of 13:03: [place] [address] Medical Branch diphenhydrA Yes 25mg Take 25 [...] Yes [facility] INHALE 8-02 ity of 13:03: [place] [address] Medical Branch diphenhydrA 0 Yes 25mg Take [...] Yes [facility] INHALE 8-02 ity of 13:03: [address] Branch diphenhydrA Yes 25mg Take 25 mg [facility] MINE 25 mg 802 by mouth ity o f capsule 13:03: every 6 [place] [address] (six) Medical hours as Branch needed for Allergies. carbamazepi 0 Yes Take by [facility] vers ne 8-02 mouth. ity of (TEGRETOL 13:03: [place] ORAL) Medical Branch citalopram Yes Take by Univ ers hydrobromid 8-02 mouth. ity of e 13:03: [place] (CITALOPRAM 04 Medical ORAL) Branch ALBUTEROL Yes [facility] INHALE 8-02 ity of 13:03: [place] [address] Medical Branch ALBUTEROL Yes [facility] INHALE 8-02 ity of 13:03: [place] [address] Medical Branch ALBUTEROL 0 Yes [facility] INHALE 8-02 ity of 13:03: [place] [address] Medical Branch ALBUTEROL 0 Yes [facility] INHALE 8-02 ity of 13:03: [place] [address] Medical Branch ALBUTEROL 0 Yes [facility] INHALE 8-02 ity of 13:03: [address] ALBUTEROL Yes Univers INHALE 8-02 ity of 13:03: [address] ALBUTEROL Yes [facility] INHALE 8-02 ity of 13:03: [address] ALBUTEROL Yes Univers INHALE 8-02 ity of 13:03: [address] ALBUTEROL Yes Univers INHALE 8-02 ity of 13:03: [place] [facility] ALBUTEROL Yes Univers INHALE 8-02 ity of 13:03: [address] ALBUTEROL Yes Univers INHALE 8-02 ity of 13:03: [address] ALBUTEROL Yes [facility] INHALE 8-02 ity of 13:03: [address] ALBUTEROL Yes Univers INHALE 8-02 ity of 13:03: [address] ALBUTEROL Yes Univers INHALE 8-02 ity of 13:03: [address] ALBUTEROL Yes Univers INHALE 8-02 ity of 13:03: [address] traZODone Yes [id number] 50mg Take 1 U nivers 50 mg 8-02 tablet by ity of tablet 00:00: mouth at [place] 00 bedtime. [facility] Branch SERTraline Yes [id number] 50mg Take 1 Univers (ZOLOFT) 50 8-02 tablet by ity of mg tablet 00:00: [place] the Medical morning. Branch traZODone 0 Yes [id number] 50mg Take 1 U nivers 50 mg 8-02 tablet by ity of tablet 00:00: mouth at [place] 00 bedtime. [facility] Branch SERTraline Yes [id number] 50mg Take 1 Univers (ZOLOFT) 50 8-02 tablet by ity of mg tablet 00:00: [place] 00 the Medical morning. Branch traZODone Yes [id number] 50mg Take 1 U nivers 50 mg 8-02 tablet by ity of tablet 00:00: mouth at [place] 00 bedtime. [facility] Branch SERTraline 0 Yes [id number] 50mg Take 1 [facility] (ZOLOFT) 50 8-02 tablet by ity of mg tablet 00:00: mouth [place] 00 the Medical morning. Branch traZODone 2021-0 Yes [id number] 50mg Take 1 U nivers 50 mg 8-02 tablet by ity of tablet 00:00: mouth at [place] 00 bedtime. Medical Branch SERTraline 2021-0 Yes 50mg Take 1 [facility] (ZOLOFT) 50 8-02 tablet by ity of mg tablet 00:00: mouth [place] 00 the Medical morning. Branch traZODone 2021-0 Yes [id number] 50mg Take 1 U nivers 50 mg 8-02 tablet by ity of tablet 00:00: mouth at [place] 00 bedtime. Medical Branch SERTraline 0 Yes 50mg Take 1 [facility] (ZOLOFT) 50 8-02 tablet by ity of mg tablet 00:00: mouth [place] 00 the Medical morning. Branch traZODone 2021-0 Yes [id number] 50mg Take 1 U nivers 50 mg 8-02 tablet by ity of tablet 00:00: mouth at [place] 00 bedtime. Medical Branch SERTraline 0 Yes [id number] 50mg Take 1 [facility] (ZOLOFT) 50 8-02 tablet by ity of mg tablet 00:00: mouth [place] 00 the Medical morning. Branch traZODone 2021-0 Yes [id number] 50mg Take 1 U nivers 50 mg 8-02 tablet by ity of tablet 00:00: mouth at [place] 00 bedtime. Medical Branch SERTraline 2021-0 Yes 50mg Take 1 [facility] (ZOLOFT) 50 8-02 tablet by ity of mg tablet 00:00: mouth [place] 00 the Medical morning. Branch traZODone 2021-0 Yes [id number] 50mg Take 1 U nivers 50 mg 8-02 tablet by ity of tablet 00:00: mouth at [place] 00 bedtime. Medical Branch SERTraline 2021-0 Yes [id number] 50mg Take 1 [facility] (ZOLOFT) 50 8-02 tablet by ity of mg tablet 00:00: mouth [place] 00 the Medical morning. Branch traZODone 2021-0 Yes [id number] 50mg Take 1 U nivers 50 mg 8-02 tablet by ity of tablet 00:00: mouth at [place] 00 bedtime. Medical Branch SERTraline Yes [id number] 50mg Take 1 [facility] (ZOLOFT) 50 8-02 tablet by ity of mg tablet 00:00: mouth [place] 00 the Medical morning. Branch traZODone Yes [id number] 50mg Take 1 U nivers 50 mg 8-02 tablet by ity of tablet 00:00: mouth at [place] 00 bedtime. Medical Branch SERTraline Yes [id number] 50mg Take 1 [facility] (ZOLOFT) 50 8-02 tablet by ity of mg tablet 00:00: mouth [place] 00 the Medical morning. Branch traZODone Yes [id number] 50mg Take 1 U nivers 50 mg 8-02 tablet by ity of tablet 00:00: mouth at [place] 00 bedtime. Medical Branch SERTraline Yes [id number] 50mg Take 1 [facility] (ZOLOFT) 50 8-02 tablet by ity of mg tablet 00:00: mouth [place] 00 the Medical morning. Branch traZODone 2021- No [id number] 50mg Take 1 [facility] 50 mg 8-02 10-18 tablet by ity of tablet 00:00: 00:00 mouth at [place] 00 :00 bedtime. Medical Branch SERTraline 2021- No [id number] 50mg Take 1 [facility] (ZOLOFT) 50 8-02 10-18 tablet by it y of mg tablet 00:00: 00:00 mouth in [place] as 00 :00 the Medical morning. Branch traZODone 2021- No [id number] 50mg Take 1 [facility] 50 mg 8-02 10-18 tablet by ity of tablet 00:00: 00:00 mouth at [place] 00 :00 bedtime. Medical Branch SERTraline 2021- No [id number] 50mg Take 1 [facility] (ZOLOFT) 50 8-02 10-18 tablet by it y of mg tablet 00:00: 00:00 mouth in [place] as 00 :00 the Medical morning. Branch traZODone 2021- No [id number] 50mg Take 1 [facility] 50 mg 8-02 10-18 tablet by ity of tablet 00:00: 00:00 mouth at [place] 00 :00 bedtime. Medical Branch SERTraline 2021- No [id number] 50mg Take 1 [facility] (ZOLOFT) 50 12-12 tablet by it y of mg tablet 00:00: 00:00 mouth in [facility] as 00 :00 the Medical morning. Branch traZODone 2021- No [id number] 50mg Take 1 [facility] 50 mg 12-1218 tablet by ity of tablet 00:00: 00:00 mouth at [place] 00 :00 bedtime. Medical Branch SERTraline 2021- No [id number] 50mg Take 1 [facility] (ZOLOFT) 50 12-1218 tablet by it y of mg tablet 00:00: 00:00 mouth in [facility] as 00 :00 the Medical morning. Branch sulfamethox 2021- No [id number] 1{tbl} Take 1 Univers azole-trime 12-12 tablet by it y of thoprim 00:00: 04:59 mouth in [place] (BACTRIM 00 :00 the Medical DS) 800-160 morning Branc h mg per and 1 tablet tablet in the evening. Do all this for 3 days. ibuprofen 2021-0 Yes [id number] 600mg Take 1 [facility] 600 mg 7-15 tablet by ity of tablet 00:00: mouth [place] 00 every 6 Medical (six) Branch hours as needed for Pain (scale 4-6). ibuprofen 2021-0 Yes [id number] 600mg Take 1 [facility] 600 mg 7-15 tablet by ity of tablet 00:00: mouth [place] [address] every 6 Medical (six) Branch hours as needed for Pain (scale 4-6). ibuprofen 2021-0 Yes [id number] 600mg Take 1 [facility] 600 mg 7-15 tablet by ity of tablet 00:00: mouth [place] [address] every 6 Medical (six) Branch hours as needed for Pain (scale 4-6). ibuprofen 2021-0 Yes [id number] 600mg Take 1 [facility] 600 mg 7-15 tablet by ity of tablet 00:00: mouth [place] [address] every 6 Medical (six) Branch hours as needed for Pain (scale 4-6). ibuprofen 2021-0 Yes [id number] 600mg Take 1 [facility] 600 mg 7-15 tablet by ity of tablet 00:00: mouth [place] 00 every 6 Medical (six) Branch hours as needed for Pain (scale 4-6). ibuprofen 2022-0 Yes [id number] 600mg Take 1 [facility] 600 mg 7-15 tablet by ity of tablet 00:00: mouth [place] 00 every 6 Medical (six) Branch hours as needed for Pain (scale 4-6). ibuprofen 2-0 Yes [id number] 600mg Take 1 [facility] 600 mg 7-15 tablet by ity of tablet 00:00: mouth [place] 00 every 6 Medical (six) Branch hours as needed for Pain (scale 4-6). ibuprofen 2021-0 Yes [id number] 600mg Take 1 [facility] 600 mg 7-15 tablet by ity of tablet 00:00: mouth [place] 00 every 6 Medical (six) Branch hours as needed for Pain (scale 4-6). ibuprofen 2021-0 Yes [id number] 600mg Take 1 [facility] 600 mg 7-15 tablet by ity of tablet 00:00: mouth [place] 00 every 6 Medical (six) Branch hours as needed for Pain (scale 4-6). ibuprofen 2021-0 Yes [id number] 600mg Take 1 [facility] 600 mg 7-15 tablet by ity of tablet 00:00: mouth [place] 00 every 6 Medical (six) Branch hours as needed for Pain (scale 4-6). ibuprofen 2021-0 Yes [id number] 600mg Take 1 [facility] 600 mg 7-15 tablet by ity of tablet 00:00: mouth [place] 00 every 6 Medical (six) Branch hours as needed for Pain (scale 4-6). ibuprofen 2022-0 2022- No [id number] 600mg Take 1 [facility] 600 mg 7-15 10-18 tablet by ity of tablet 00:00: 00:00 mouth [place] 00 :00 every 6 Medical (six) Branch hours as needed for Pain (scale 4-6). ibuprofen 2022-0 2022- No [id number] 600mg Take 1 [facility] 600 mg 7-15 10-18 tablet by ity of tablet 00:00: 00:00 mouth [place] 00 :00 every 6 Medical (six) Branch hours as needed for Pain (scale 4-6). ibuprofen 2022-0 2022- No [id number] 600mg Take 1 [facility] 600 mg 7-15 10-18 tablet by ity of tablet 00:00: 00:00 mouth [place] 00 :00 every 6 Medical (six) Branch hours as needed for Pain (scale 4-6). ibuprofen 2021- No [id number] 600mg Take 1 [facility] 600 mg 7-15 10-18 tablet by ity of tablet 00:00: 00:00 mouth [place] 00 :00 every 6 Medical (six) Branch hours as needed for Pain (scale 4-6). acetaminoph 2021- No [id number] 1{tbl} Take 1 U nivers en-codeine 7-15 08- tablet by ity of 300-30 mg 00:00: 00:00 mouth [place] tablet 00 :00 every 4 Medical (four) Branch hours as needed for Pain (scale 4-6). Indication s: acute pain bromphenira 0 Yes [id number] 5mL Take 5 mL [facility] mine-pseudo 7-09 by mouth 4 it y of ephedrine-D 00:00: (four) [place] (BROMFED 00 times Medical DM) 2-30-10 daily as Bran ch mg/5 mL needed for syrup Congestion /Allergies or Cough. naproxen 2021-0 Yes [id number] 500mg Take 1 U nivers 500 mg 7-09 tablet by ity of tablet 00:00: mouth [place] 00 every 8 Medical (eight) Branch hours as needed for Pain (scale 4-6). cyclobenzap 2021-0 Yes [id number] 10mg Take 1 Univers rine 10 mg 7-09 tablet by ity of tablet 00:00: mouth at [place] 00 bedtime as Medical needed for Branch Muscle Spasms. bromphenira 2021-0 Yes [id number] 5mL Take 5 mL [facility] mine-pseudo 7-09 by mouth 4 it y of ephedrine-D 00:00: (four) [place] (BROMFED 00 times Medical DM) 2-30-10 daily as Bran ch mg/5 mL needed for syrup Congestion /Allergies or Cough. naproxen 2021-0 Yes [id number] 500mg Take 1 U nivers 500 mg 7-09 tablet by ity of tablet 00:00: mouth [place] 00 every 8 Medical (eight) Branch hours as needed for Pain (scale 4-6). cyclobenzap 2021-0 Yes [id number] 10mg Take 1 Univers rine 10 mg 7-09 tablet by ity of tablet 00:00: mouth at [place] 00 bedtime as Medical needed for Branch Muscle Spasms. bromphenira 2021-0 Yes [id number] 5mL Take 5 mL [facility] mine-pseudo 7-09 by mouth 4 it y of ephedrine-D 00:00: (four) [place] (BROMFED 00 times Medical DM) 2-30-10 daily as Bran ch mg/5 mL needed for syrup Congestion /Allergies or Cough. naproxen 2021-0 Yes [id number] 500mg Take 1 U nivers 500 mg 7-09 tablet by ity of tablet 00:00: mouth [place] 00 every 8 Medical (eight) Branch hours as needed for Pain (scale 4-6). cyclobenzap 2021-0 Yes [id number] 10mg Take 1 [facility] rine 10 mg 7-09 tablet by ity of tablet 00:00: mouth at [place] 00 bedtime as Medical needed for Branch Muscle Spasms. bromphenira 2021-0 Yes [id number] 5mL Take 5 mL [facility] mine-pseudo 7-09 by mouth 4 it y of ephedrine-D 00:00: (four) [place] (BROMFED 00 times Medical DM) 2-30-10 daily as Bran ch mg/5 mL needed for syrup Congestion /Allergies or Cough. naproxen 2021-0 Yes [id number] 500mg Take 1 U nivers 500 mg 7-09 tablet by ity of tablet 00:00: mouth [place] 00 every 8 Medical (eight) Branch hours as needed for Pain (scale 4-6). cyclobenzap 2021-0 Yes [id number] 10mg Take 1 Univers rine 10 mg 7-09 tablet by ity of tablet 00:00: mouth at [place] 00 bedtime as Medical needed for Branch Muscle Spasms. bromphenira 2021-0 Yes [id number] 5mL Take 5 mL [facility] mine-pseudo 7-09 by mouth 4 it y of ephedrine-D 00:00: (four) [place] (BROMFED 00 times Medical DM) 2-30-10 daily as Bran ch mg/5 mL needed for syrup Congestion /Allergies or Cough. naproxen 2021-0 Yes [id number] 500mg Take 1 U nivers 500 mg 7-09 tablet by ity of tablet 00:00: mouth [place] 00 every 8 Medical (eight) Branch hours as needed for Pain (scale 4-6). cyclobenzap 2022-0 Yes [id number] 10mg Take 1 Univers rine 10 mg 7-09 tablet by ity of tablet 00:00: mouth at [place] 00 bedtime as Medical needed for Branch Muscle Spasms. bromphenira 2022-0 Yes [id number] 5mL Take 5 mL [facility] mine-pseudo 7-09 by mouth 4 it y of ephedrine-D 00:00: (four) [place] (BROMFED 00 times Medical DM) 2-30-10 daily as Bran ch mg/5 mL needed for syrup Congestion /Allergies or Cough. naproxen 2-0 Yes [id number] 500mg Take 1 U nivers 500 mg 7-09 tablet by ity of tablet 00:00: mouth [place] 00 every 8 Medical (eight) Branch hours as needed for Pain (scale 4-6). cyclobenzap 2-0 Yes [id number] 10mg Take 1 Univers rine 10 mg 7-09 tablet by ity of tablet 00:00: mouth at [place] 00 bedtime as Medical needed for Branch Muscle Spasms. bromphenira 2-0 Yes [id number] 5mL Take 5 mL [facility] mine-pseudo 7-09 by mouth 4 it y of ephedrine-D 00:00: (four) [place] (BROMFED 00 times Medical DM) 2-30-10 daily as Bran ch mg/5 mL needed for syrup Congestion /Allergies or Cough. naproxen 2-0 Yes [id number] 500mg Take 1 U nivers 500 mg 7-09 tablet by ity of tablet 00:00: mouth [place] 00 every 8 Medical (eight) Branch hours as needed for Pain (scale 4-6). cyclobenzap 2022-0 Yes [id number] 10mg Take 1 Univers rine 10 mg 7-09 tablet by ity of tablet 00:00: mouth at [place] 00 bedtime as Medical needed for Branch Muscle Spasms. bromphenira 2022-0 Yes [id number] 5mL Take 5 mL [facility] mine-pseudo 7-09 by mouth 4 it y of ephedrine-D 00:00: (four) [place] (BROMFED 00 times Medical DM) 2-30-10 daily as Bran ch mg/5 mL needed for syrup Congestion /Allergies or Cough. naproxen 2-0 Yes [id number] 500mg Take 1 U nivers 500 mg 7-09 tablet by ity of tablet 00:00: mouth [place] 00 every 8 Medical (eight) Branch hours as needed for Pain (scale 4-6). cyclobenzap 2-0 Yes [id number] 10mg Take 1 Univers rine 10 mg 7-09 tablet by ity of tablet 00:00: mouth at [place] 00 bedtime as Medical needed for Branch Muscle Spasms. bromphenira 2-0 Yes [id number] 5mL Take 5 mL [facility] mine-pseudo 7-09 by mouth 4 it y of ephedrine-D 00:00: (four) [place] (BROMFED 00 times Medical DM) 2-30-10 daily as Bran ch mg/5 mL needed for syrup Congestion /Allergies or Cough. naproxen 2-0 Yes [id number] 500mg Take 1 U nivers 500 mg 7-09 tablet by ity of tablet 00:00: mouth [place] 00 every 8 Medical (eight) Branch hours as needed for Pain (scale 4-6). cyclobenzap 2021-0 Yes [id number] 10mg Take 1 Univers rine 10 mg 7-09 tablet by ity of tablet 00:00: mouth at [place] 00 bedtime as Medical needed for Branch Muscle Spasms. bromphenira 2-0 Yes [id number] 5mL Take 5 mL [facility] mine-pseudo 7-09 by mouth 4 it y of ephedrine-D 00:00: (four) [place] (BROMFED 00 times Medical DM) 2-30-10 daily as Bran ch mg/5 mL needed for syrup Congestion /Allergies or Cough. naproxen 2-0 Yes [id number] 500mg Take 1 U nivers 500 mg 7-09 tablet by ity of tablet 00:00: mouth [place] 00 every 8 Medical (eight) Branch hours as needed for Pain (scale 4-6). cyclobenzap 2022-0 Yes [id number] 10mg Take 1 Univers rine 10 mg 7-09 tablet by ity of tablet 00:00: mouth at [place] 00 bedtime as Medical needed for Branch Muscle Spasms. bromphenira 2022-0 Yes [id number] 5mL Take 5 mL [facility] mine-pseudo 7-09 by mouth 4 it y of ephedrine-D 00:00: (four) [place] (BROMFED 00 times Medical DM) 2-30-10 daily as Bran ch mg/5 mL needed for syrup Congestion /Allergies or Cough. naproxen 2021-0 Yes [id number] 500mg Take 1 U nivers 500 mg 7-09 tablet by ity of tablet 00:00: mouth [place] 00 every 8 Medical (eight) Branch hours as needed for Pain (scale 4-6). cyclobenzap 2021-0 Yes [id number] 10mg Take 1 Univers rine 10 mg 7-09 tablet by ity of tablet 00:00: mouth at [place] 00 bedtime as Medical needed for Branch Muscle Spasms. bromphenira 0 Yes [id number] 5mL Take 5 mL [facility] mine-pseudo 7-09 by mouth 4 it y of ephedrine-D 00:00: (four) [place] (BROMFED 00 times Medical DM) 2-30-10 daily as Bran ch mg/5 mL needed for syrup Congestion /Allergies or Cough. bromphenira 2021-0 Yes [id number] 5mL Take 5 mL [facility] mine-pseudo 7-09 by mouth 4 it y of ephedrine-D 00:00: (four) [place] (BROMFED 00 times Medical DM) 2-30-10 daily as Bran ch mg/5 mL needed for syrup Congestion /Allergies or Cough. bromphenira 2021-0 Yes [id number] 5mL Take 5 mL [facility] mine-pseudo 7-09 by mouth 4 it y of ephedrine-D 00:00: (four) [place] (BROMFED 00 times Medical DM) 2-30-10 daily as Bran ch mg/5 mL needed for syrup Congestion /Allergies or Cough. bromphenira 2021-0 Yes [id number] 5mL Take 5 mL [facility] mine-pseudo 7-09 by mouth 4 it y of ephedrine-D 00:00: (four) [place] (BROMFED 00 times Medical DM) 2-30-10 daily as Bran ch mg/5 mL needed for syrup Congestion /Allergies or Cough. bromphenira 2021-0 Yes [id number] 5mL Take 5 mL [facility] mine-pseudo 7-09 by mouth 4 it y of ephedrine-D 00:00: (four) [place] (BROMFED 00 times Medical DM) 2-30-10 daily as Bran ch mg/5 mL needed for syrup Congestion /Allergies or Cough. bromphenira 2021-0 Yes [id number] 5mL Take 5 mL [facility] mine-pseudo 7-09 by mouth 4 it y of ephedrine-D 00:00: (four) [place] (BROMFED 00 times Medical DM) 2-30-10 daily as Bran ch mg/5 mL needed for syrup Congestion /Allergies or Cough. bromphenira 2021-0 Yes [id number] 5mL Take 5 mL [facility] mine-pseudo 7-09 by mouth 4 it y of ephedrine-D 00:00: (four) [place] (BROMFED 00 times Medical DM) 2-30-10 daily as Bran ch mg/5 mL needed for syrup Congestion /Allergies or Cough. bromphenira 2021-0 Yes [id number] 5mL Take 5 mL [facility] mine-pseudo 7-09 by mouth 4 it y of ephedrine-D 00:00: (four) [place] (BROMFED 00 times Medical DM) 2-30-10 daily as Bran ch mg/5 mL needed for syrup Congestion /Allergies or Cough. bromphenira 2021-0 Yes [id number] 5mL Take 5 mL [facility] mine-pseudo 7-09 by mouth 4 it y of ephedrine-D 00:00: (four) [place] (BROMFED 00 times Medical DM) 2-30-10 daily as Bran ch mg/5 mL needed for syrup Congestion /Allergies or Cough. bromphenira 2021-0 Yes [id number] 5mL Take 5 mL [facility] mine-pseudo 7-09 by mouth 4 it y of ephedrine-D 00:00: (four) [place] (BROMFED 00 times Medical DM) 2-30-10 daily as Bran ch mg/5 mL needed for syrup Congestion /Allergies or Cough. bromphenira 2-0 Yes [id number] 5mL Take 5 mL [facility] mine-pseudo 7-09 by mouth 4 it y of ephedrine-D 00:00: (four) [place] (BROMFED 00 times Medical DM) 2-30-10 daily as Bran ch mg/5 mL needed for syrup Congestion /Allergies or Cough. bromphenira 2021-0 Yes [id number] 5mL Take 5 mL [facility] mine-pseudo 7-09 by mouth 4 it y of ephedrine-D 00:00: (four[place] (BROMFED 00 times Medical DM) 2-30-10 daily as Bran ch mg/5 mL needed for syrup Congestion /Allergies or Cough. bromphenira 2021-0 Yes [id number] 5mL Take 5 mL [facility] mine-pseudo 7-09 by mouth 4 it y of ephedrine-D 00:00: (four[place] (BROMFED 00 times Medical DM) 2-30-10 daily as Bran ch mg/5 mL needed for syrup Congestion /Allergies or Cough. bromphenira 2021-0 Yes [id number] 5mL Take 5 mL [facility] mine-pseudo 7-09 by mouth 4 it y of ephedrine-D 00:00: (four[place] (BROMFED 00 times Medical DM) 2-30-10 daily as Bran ch mg/5 mL needed for syrup Congestion /Allergies or Cough. bromphenira 2021- No [id number] 5mL Take 5 mL [facility] mine-pseudo 7- 11-12 by mouth 4 i ty of ephedrine-D 00:00: 00:00 (four) [place] M (BROMFED 00 :00 times Medical DM) 2-30-10 daily as Bran ch mg/5 mL needed for syrup Congestion /Allergies or Cough. naproxen 2021- No [id number] 500mg Take 1 [facility] 500 mg 7- 10-18 tablet by ity of tablet 00:00: 00:00 mouth [place] 00 :00 every 8 Medical (eight) Branch hours as needed for Pain (scale 4-6). cyclobenzap 2021-2021- No [id number] 10mg Take 1 [facility] rine 10 mg 7- 10-18 tablet by ity of tablet 00:00: 00:00 mouth at [place] 00 :00 bedtime as Medical needed for Branch Muscle Spasms. naproxen 2021-0 2021- No [id number] 500mg Take 1 [facility] 500 mg 7- 10-18 tablet by ity of tablet 00:00: 00:00 mouth [place] 00 :00 every 8 Medical (eight) Branch hours as needed for Pain (scale 4-6). cyclobenzap No [id number] 10mg Take 1 [facility] rine 10 mg 7 10-18 tablet by ity of tablet 00:00: 00:00 mouth at [place] 00 :00 bedtime as Medical needed for Branch Muscle Spasms. naproxen No [id number] 500mg Take 1 [facility] 500 mg 7 10-18 tablet by ity of tablet 00:00: 00:00 mouth [place] 00 :00 every 8 Medical (eight) Branch hours as needed for Pain (scale 4-6). cyclobenzap No [id number] 10mg Take 1 [facility] rine 10 mg 11-18 1018 tablet by ity of tablet 00:00: 00:00 mouth at [place] 00 :00 bedtime as Medical needed for Branch Muscle Spasms. naproxen No [id number] 500mg Take 1 [facility] 500 mg 7 10-18 tablet by ity of tablet 00:00: 00:00 mouth [place] 00 :00 every 8 Medical (eight) Branch hours as needed for Pain (scale 4-6). cyclobenzap No [id number] 10mg Take 1 [facility] rine 10 mg 11-1818 tablet by ity of tablet 00:00: 00:00 mouth at [place] 00 :00 bedtime as Medical needed for Branch Muscle Spasms. ibuprofen Yes [id number] 605mg Take 30.25 [facility] 100 mg/5 mL 6-15 mL by ity of oral 00:00: mouth [place] suspension 00 every 6 Medica l (six) Branch hours as needed for Pain (scale 4-6) or Temp > 38.5 C. ibuprofen 0 Yes [id number] 605mg Take 30.25 [facility] 100 mg/5 mL 6-15 mL by ity of oral 00:00: mouth [place] suspension 00 every 6 Medica l (six) Branch hours as needed for Pain (scale 4-6) or Temp > 38.5 C. ibuprofen Yes [id number] 605mg Take 30.25 [facility] 100 mg/5 mL 6-15 mL by ity of oral 00:00: mouth [place] suspension 00 every 6 Medica l (six) Branch hours as needed for Pain (scale 4-6) or Temp > 38.5 C. ibuprofen 2022-0 Yes [id number] 605mg Take 30.25 [facility] 100 mg/5 mL 6-15 mL by ity of oral 00:00: mouth [place] suspension 00 every 6 Medica l (six) Branch hours as needed for Pain (scale 4-6) or Temp > 38.5 C. ibuprofen 2022-0 Yes [id number] 605mg Take 30.25 [facility] 100 mg/5 mL 6-15 mL by ity of oral 00:00: mouth [place] suspension 00 every 6 Medica l (six) Branch hours as needed for Pain (scale 4-6) or Temp > 38.5 C. ibuprofen 2022-0 Yes [id number] 605mg Take 30.25 [facility] 100 mg/5 mL 6-15 mL by ity of oral 00:00: mouth [place] suspension 00 every 6 Medica l (six) Branch hours as needed for Pain (scale 4-6) or Temp > 38.5 C. ibuprofen 2022-0 Yes [id number] 605mg Take 30.25 [facility] 100 mg/5 mL 6-15 mL by ity of oral 00:00: mouth [place] suspension 00 every 6 Medica l (six) Branch hours as needed for Pain (scale 4-6) or Temp > 38.5 C. ibuprofen 2022-0 Yes [id number] 605mg Take 30.25 [facility] 100 mg/5 mL 6-15 mL by ity of oral 00:00: mouth [place] suspension 00 every 6 Medica l (six) Branch hours as needed for Pain (scale 4-6) or Temp > 38.5 C. ibuprofen 2022-0 Yes [id number] 605mg Take 30.25 [facility] 100 mg/5 mL 6-15 mL by ity of oral 00:00: mouth [place] suspension 00 every 6 Medica l (six) Branch hours as needed for Pain (scale 4-6) or Temp > 38.5 C. ibuprofen 2022-0 Yes [id number] 605mg Take 30.25 [facility] 100 mg/5 mL 6-15 mL by ity of oral 00:00: mouth [place] suspension 00 every 6 Medica l (six) Branch hours as needed for Pain (scale 4-6) or Temp > 38.5 C. ibuprofen Yes [id number] 605mg Take 30.25 [facility] 100 mg/5 mL 6-15 mL by ity of oral 00:00: mouth [place] suspension 00 every 6 Medica l (six) Branch hours as needed for Pain (scale 4-6) or Temp > 38.5 C. ibuprofen 2021- No [id number] 605mg Take 30.25 [facility] 100 mg/5 mL 6-15 10-18 mL by ity of oral 00:00: 00:00 mouth [place] suspension 00 :00 every 6 Medica l (six) Branch hours as needed for Pain (scale 4-6) or Temp > 38.5 C. ibuprofen 2021- No [id number] 605mg Take 30.25 [facility] 100 mg/5 mL 6-15 10-18 mL by ity of oral 00:00: 00:00 mouth [place] suspension 00 :00 every 6 Medica l (six) Branch hours as needed for Pain (scale 4-6) or Temp > 38.5 C. ibuprofen 2021- No [id number] 605mg Take 30.25 [facility] 100 mg/5 mL 6-15 10-18 mL by ity of oral 00:00: 00:00 mouth [place] suspension 00 :00 every 6 Medica l (six) Branch hours as needed for Pain (scale 4-6) or Temp > 38.5 C. ibuprofen 2021- No [id number] 605mg Take 30.25 [facility] 100 mg/5 mL 6-15 10-18 mL by ity of oral 00:00: 00:00 mouth [place] suspension 00 :00 every 6 Medica l (six) Branch hours as needed for Pain (scale 4-6) or Temp > 38.5 C. acetaminoph 2021- No [id number] 608mg Take 19 mL [facility] en 160 mg/5 6-15 08-02 by mouth ity of mL liquid 00:00: 00:00 every 6 [place] 00 :[place] (six) Medical hours as Branch needed for Fever. DULoxetine Yes [facility] 60 mg 5-27 ity of capsule 00:00: [place] 00 Medical Branch DULoxetine 2022-0 Yes [facility] 60 mg 5-27 ity of capsule 00:00: [place] 00 Medical Branch DULoxetine 2-0 Yes [facility] 60 mg 5-27 ity of capsule 00:00: [place] 00 Medical Branch DULoxetine 2-0 Yes [facility] 60 mg 5-27 ity of capsule 00:00: [place] [address] Medical Branch DULoxetine 2-0 Yes [facility] 60 mg 5-27 ity of capsule 00:00: [place] [address] Medical Branch DULoxetine 2-0 Yes [facility] 60 mg 5-27 ity of capsule 00:00: [place] [address] Medical Branch DULoxetine 2-0 Yes [facility] 60 mg 5-27 ity of capsule 00:00: [place] [address] Medical Branch DULoxetine 2-0 Yes [facility] 60 mg 5-27 ity of capsule 00:00: [place] [address] Medical Branch DULoxetine 2-0 Yes [facility] 60 mg 5-27 ity of capsule 00:00: [place] [address] Medical Branch DULoxetine 2-0 Yes [facility] 60 mg 5-27 ity of capsule 00:00: [place] [address] Medical Branch DULoxetine 2021-0 Yes [facility] 60 mg 5-27 ity of capsule 00:00: [place] 00 Medical Branch DULoxetine 2021-0 2022- No Univer s 60 mg 5-27 10-18 ity of capsule 00:00: 00:00 [place] 00 :00 Medical Branch DULoxetine 2-0 2022- No Univer s 60 mg 5-27 10-18 ity of capsule 00:00: 00:00 [place] 00 :00 Medical Branch DULoxetine 2-0 2022- No Univer s 60 mg 5-27 10-18 ity of capsule 00:00: 00:00 [place] 00 :00 Medical Branch DULoxetine 2-0 2022- No Univer s 60 mg 5-27 10-18 ity of capsule 00:00: 00:00 [place] 00 :00 Medical Branch traZODone 2-0 2022- No Univers 50 mg 5-27 08-02 ity of tablet 00:00: 00:00 [place] 00 :00 Medical Branch mometasone 2021-0 Yes [id number] 1{spray Use 1 [facility] 50 5-19 } [place] in ity of mcg/actuati 00:00: each [place] on nasal 00 nostril 2 Medica l spray (two) Branch times daily. mometasone 2021-0 Yes [id number] 1{spray Use 1 [facility] 50 5-19 } [place] in ity of mcg/actuati 00:00: each [place] on nasal 00 nostril 2 Medica l spray (two) Branch times daily. mometasone 2021-0 Yes [id number] 1{spray Use 1 [facility] 50 5-19 } [place] in ity of mcg/actuati 00:00: each [place] on nasal 00 nostril 2 Medica l spray (two) Branch times daily. mometasone 2021-0 Yes [id number] 1{spray Use 1 [facility] 50 5-19 } [place] in ity of mcg/actuati 00:00: each [place] on nasal 00 nostril 2 Medica l spray (two) Branch times daily. mometasone 2021-0 Yes [id number] 1{spray Use 1 [facility] 50 5-19 } [place] in ity of mcg/actuati 00:00: each [place] on nasal 00 nostril 2 Medica l spray (two) Branch times daily. mometasone 2021-0 Yes [id number] 1{spray Use 1 [facility] 50 5-19 } [place] in ity of mcg/actuati 00:00: each [place] on nasal 00 nostril 2 Medica l spray (two) Branch times daily. mometasone 2021-0 Yes [id number] 1{spray Use 1 [facility] 50 5-19 } [place] in ity of mcg/actuati 00:00: each [place] on nasal 00 nostril 2 Medica l spray (two) Branch times daily. mometasone 2021-0 Yes [id number] 1{spray Use 1 [facility] 50 5-19 } [place] in ity of mcg/actuati 00:00: each [place] on nasal 00 nostril 2 Medica l spray (two) Branch times daily. mometasone 2021-0 Yes [id number] 1{spray Use 1 [facility] 50 5-19 } [place] in ity of mcg/actuati 00:00: each [place] on nasal 00 nostril 2 Medica l spray (two) Branch times daily. mometasone 2021-0 Yes [id number] 1{spray Use 1 [facility] 50 5-19 } [place] in ity of mcg/actuati 00:00: each [place] on nasal 00 nostril 2 Medica l spray (two) Branch times daily. mometasone Yes [id number] 1{spray Use 1 [facility] 50 5-19 } [place] in ity of mcg/actuati 00:00: each [place] on nasal 00 nostril 2 Medica l spray (two) Branch times daily. mometasone 2021- No [id number] 1{spray Use 1 [facility] 50 5-19 10-18 } [place] in ity of mcg/actuati 00:00: 00:00 each [place] on nasal 00 :00 nostril 2 Medica l spray (two) Branch times daily. mometasone 2021- No [id number] 1{spray Use 1 [facility] 50 5-19 10-18 } [place] in ity of mcg/actuati 00:00: 00:00 each [place] on nasal 00 :00 nostril 2 Medica l spray (two) Branch times daily. mometasone 2021- No [id number] 1{spray Use 1 [facility] 50 5-19 10-18 } [place] in ity of mcg/actuati 00:00: 00:00 each [place] on nasal 00 :00 nostril 2 Medica l spray (two) Branch times daily. mometasone 2021- No [id number] 1{spray Use 1 [facility] 50 5-19 10-18 } [place] in ity of mcg/actuati 00:00: 00:00 each [place] on nasal 00 :00 nostril 2 Medica l spray (two) Branch times daily. cetirizine Yes [id number] 10mg Take 1 U nivers (ZYRTEC) 10 5-16 tablet by ity of mg tablet 00:00: mouth [place] 00 daily. Medical Branch cetirizine Yes [id number] 10mg Take 1 U nivers (ZYRTEC) 10 5-16 tablet by ity of mg tablet 00:00: mouth [place] 00 daily. Medical Branch cetirizine Yes [id number] 10mg Take 1 U nivers (ZYRTEC) 10 5-16 tablet by ity of mg tablet 00:00: mouth [place] 00 daily. Medical Branch cetirizine Yes [id number] 10mg Take 1 U nivers (ZYRTEC) 10 5-16 tablet by ity of mg tablet 00:00: mouth [place] 00 daily. [facility] Branch cetirizine Yes [id number] 10mg Take 1 U nivers (ZYRTEC) 10 5-16 tablet by ity of mg tablet 00:00: mouth [place] 00 daily. [facility] Branch cetirizine Yes [id number] 10mg Take 1 U nivers (ZYRTEC) 10 5-16 tablet by ity of mg tablet 00:00: mouth [place] 00 daily. [facility] Branch cetirizine Yes [id number] 10mg Take 1 U nivers (ZYRTEC) 10 5-16 tablet by ity of mg tablet 00:00: mouth [place] 00 daily. [facility] Branch cetirizine Yes [id number] 10mg Take 1 U nivers (ZYRTEC) 10 5-16 tablet by ity of mg tablet 00:00: mouth [place] 00 daily. [facility] Branch cetirizine Yes [id number] 10mg Take 1 U nivers (ZYRTEC) 10 5-16 tablet by ity of mg tablet 00:00: mouth [place] 00 daily. [facility] Branch cetirizine Yes [id number] 10mg Take 1 U nivers (ZYRTEC) 10 5-16 tablet by ity of mg tablet 00:00: mouth [place] 00 daily. [facility] Branch cetirizine Yes [id number] 10mg Take 1 U nivers (ZYRTEC) 10 5-16 tablet by ity of mg tablet 00:00: mouth [place] 00 daily. [facility] Branch cetirizine 2021- No [id number] 10mg Take 1 Univers (ZYRTEC) 10 5-16 10-18 tablet by it y of mg tablet 00:00: 00:00 mouth [place] 00 :00 daily. [facility] Branch cetirizine 2021- No [id number] 10mg Take 1 Univers (ZYRTEC) 10 5-16 10-18 tablet by it y of mg tablet 00:00: 00:00 mouth [place] 00 :00 daily. [facility] Branch cetirizine 2021- No [id number] 10mg Take 1 Univers (ZYRTEC) 10 5-16 10-18 tablet by it y of mg tablet 00:00: 00:00 mouth [place] 00 :00 daily. Medical Branch cetirizine 2-0 2022- No [id number] 10mg Take 1 Univers (ZYRTEC) 10 5-16 [...] 30 mg 5-09 ity of capsule 00:00: [place] [address] Medical Branch gabapentin 2022-0 Yes Univers 300 [...] 4 mg tablet 5-09 ity of 00:00: [place] [address] Medical Branch DULoxetine 2022-0 Yes [facility] 30 mg 5-09 ity of capsule 00:00: [place] [address] Medical Branch gabapentin 2022-0 Yes [facility] 300 mg 5-09 ity of capsule 00:00: [place] 00 Medical Branch ondansetron 2022-0 Yes Univer s 4 mg tablet 5-09 ity of 00:00: [place] 00 Medical Branch DULoxetine 2022-0 Yes [facility] 30 mg 5-09 ity of capsule 00:00: [place] [address] Medical Branch gabapentin 2022-0 Yes [facility] 300 mg 5-09 ity of capsule 00:00: [place] 00 Medical Branch ondansetron 2022-0 Yes Univer s 4 mg tablet 5-09 ity of 00:00: [place] [address] Medical Branch DULoxetine 2022-0 Yes [facility] 30 mg 5-09 ity of capsule 00:00: [place] [address] Medical Branch gabapentin 2022-0 Yes [facility] 300 mg 5-09 ity of capsule 00:00: [place] 00 Medical Branch ondansetron 2022-0 Yes Univer s 4 mg tablet 5-09 ity of 00:00: [place] [address] Medical Branch DULoxetine 2022-0 Yes [facility] 30 mg 5-09 ity of capsule 00:00: [place] [address] Medical Branch gabapentin 2022-0 Yes [facility] 300 mg 5-09 ity of capsule 00:00: [place] 00 Medical Branch ondansetron 2022-0 Yes Univer s 4 mg tablet 5-09 ity of 00:00: [place] 00 Medical Branch DULoxetine 2022-0 Yes [facility] 30 mg 5-09 ity of capsule 00:00: [place] [address] Medical Branch gabapentin 2022-0 Yes [facility] 300 mg 5-09 ity of capsule 00:00: [place] [address] Medical Branch ondansetron 2022-0 Yes Univer s 4 mg tablet 5-09 ity of 00:00: [place] [address] Medical Branch DULoxetine 2022-0 Yes [facility] 30 mg 5-09 ity of capsule 00:00: [place] [address] Medical Branch gabapentin 2022-0 Yes [facility] 300 mg 5-09 ity of capsule 00:00: [place] [address] Medical Branch ondansetron 2022-0 Yes Univer s 4 mg tablet 5-09 ity of 00:00: [place] [address] Medical Branch DULoxetine 2022-0 Yes [facility] 30 mg 5-09 ity of capsule 00:00: [place] [address] Medical Branch gabapentin 2022-0 Yes [facility] 300 mg 5-09 ity of capsule 00:00: [place] [address] Medical Branch ondansetron 2022-0 Yes Univer s 4 mg tablet 5-09 ity of 00:00: [place] [address] Medical Branch DULoxetine 2022-0 Yes [facility] 30 mg 5-09 ity of capsule 00:00: [place] [address] Medical Branch gabapentin 2022-0 Yes Univers 300 mg 5-09 ity of capsule 00:00: [place] [address] Medical Branch ondansetron 2022-0 Yes Univer s 4 mg tablet 5-09 ity of 00:00: [place] 00 Medical Branch DULoxetine 2022-0 2022- No Univer s 30 mg 5-09 10-18 ity of capsule 00:00: 00:00 [place] 00 :00 Medical Branch gabapentin 2022-0 2022- No Univer s 300 mg 5-09 10-18 ity of capsule 00:00: 00:00 [place] 00 :00 Medical Branch ondansetron 2022-0 2022- No Unive rs 4 mg tablet 09-18 ity of 00:00: 00:00 [place] 00 :00 Medical Branch DULoxetine 2022-0 2022- No Univer s 30 mg 09-18 ity of capsule 00:00: 00:00 [place] 00 :00 Medical Branch gabapentin 2022-0 2022- No Univer s 300 mg 09-18 ity of capsule 00:00: 00:00 [place] 00 :00 Medical Branch ondansetron 2022-0 2022- No Unive rs 4 mg tablet 09-18 ity of 00:00: 00:00 [place] 00 :00 Medical Branch DULoxetine 2022-0 2022- No Univer s 30 mg 09-18 ity of capsule 00:00: 00:00 [place] 00 :00 Medical Branch gabapentin 2022-0 2022- No Univer s 300 mg 09-18 ity of capsule 00:00: 00:00 [place] 00 :00 Medical Branch ondansetron 2022-0 2022- No Unive rs 4 mg tablet 09-18 ity of 00:00: 00:00 [place] 00 :00 Medical Branch DULoxetine 2022-0 2- No Univer s 30 mg 09-18 ity of capsule 00:00: 00:00 [place] 00 :00 Medical Branch gabapentin 2022-0 2022- No Univer s 300 mg 09-18 ity of capsule 00:00: 00:00 [place] 00 :00 Medical Branch ondansetron 2022-0 2022- No Unive rs 4 mg tablet 09-18 ity of 00:00: 00:00 [place] 00 :00 Medical Branch amLODIPine 2022-0 Yes Univers 5 mg tablet 4-22 ity of 00:00: [place] 00 Medical Branch amLODIPine 2022-0 Yes 5mg Take 5 mg Un sushant 5 mg tablet 4-22 by mouth. ity of 00:00: [place] 00 Medical Branch amLODIPine 2022-0 Yes Univers 5 mg tablet 4-22 ity of 00:00: [place] 00 Medical Branch amLODIPine 2022-0 Yes 5mg Take 5 mg Un sushant 5 mg tablet 4-22 by mouth. ity of 00:00: [place] 00 Medical Branch amLODIPine 2022-0 Yes Univers 5 mg tablet 4-22 ity of 00:00: [place] [facility] Branch amLODIPine 2022-0 Yes 5mg Take 5 mg Un sushant 5 mg tablet 4-22 by mouth. ity of 00:00: [place] [facility] Branch amLODIPine 2022-0 Yes Univers 5 mg tablet 4-22 ity of 00:00: [place] [facility] Branch amLODIPine 2022-0 Yes 5mg Take 5 mg Un sushant 5 mg tablet 4-22 by mouth. ity of 00:00: [place] [facility] Branch amLODIPine 2022-0 Yes Univers 5 mg tablet 4-22 ity of 00:00: [place] [facility] Branch amLODIPine 2022-0 Yes 5mg Take 5 mg Un sushant 5 mg tablet 4-22 by mouth. ity of 00:00: [place] [facility] Branch amLODIPine 2022-0 Yes Univers 5 mg tablet 4-22 ity of 00:00: [place] [facility] Branch amLODIPine 2022-0 Yes 5mg Take 5 mg Un sushant 5 mg tablet 4-22 by mouth. ity of 00:00: [place] [facility] Branch amLODIPine 2022-0 Yes Univers 5 mg tablet 4-22 ity of 00:00: [place] [facility] Branch amLODIPine 2022-0 Yes 5mg Take 5 mg Un sushant 5 mg tablet 4-22 by mouth. ity of 00:00: [place] [facility] amLODIPine 2022-0 Yes Univers 5 mg tablet 4-22 ity of 00:00: [place] [facility] Branch amLODIPine 2022-0 Yes 5mg Take 5 mg Un sushant 5 mg tablet 4-22 by mouth. ity of 00:00: [place] [facility] amLODIPine 2022-0 Yes Univers 5 mg tablet 4-22 ity of 00:00: [place] [facility] amLODIPine 2022-0 Yes 5mg Take 5 mg Un sushant 5 mg tablet 4-22 by mouth. ity of 00:00: [place] [facility] amLODIPine 2022-0 Yes Univers 5 mg tablet 4-22 ity of 00:00: [place] [facility] amLODIPine 2022-0 Yes 5mg Take 5 mg Un sushant 5 mg tablet 4-22 by mouth. ity of 00:00: [place] [facility] Branch amLODIPine 2022-0 Yes Univers 5 mg tablet 4-22 ity of 00:00: [place] 00 Medical Branch amLODIPine 2022-0 Yes 5mg Take 5 mg Un sushant 5 mg tablet 09-01 by mouth. ity of 00:00: [place] 00 Medical Branch amLODIPine 2022-0 2022- No Univer s 5 mg tablet 09-0118 ity of 00:00: 00:00 [place] 00 :00 Medical Branch amLODIPine 2022-0 2022- No 5mg Take 5 mg U nivers 5 mg tablet 09-0118 by mouth. it y of 00:00: 00:00 [place] 00 :00 Medical Branch amLODIPine 2022-0 2022- No Univer s 5 mg tablet 09-0118 ity of 00:00: 00:00 [place] 00 :00 Medical Branch amLODIPine 2022-0 2022- No 5mg Take 5 mg U nivers 5 mg tablet 09-01 by mouth. it y of 00:00: 00:00 [place] 00 :00 Medical Branch amLODIPine 2022-0 2022- No Univer s 5 mg tablet 09-01 ity of 00:00: 00:00 [place] 00 :00 Medical Branch amLODIPine 2022-0 2022- No 5mg Take 5 mg U nivers 5 mg tablet 09-01 by mouth. it y of 00:00: 00:00 [place] 00 :00 Medical Branch amLODIPine 2022-0 2022- No Univer s 5 mg tablet 09-01 ity of 00:00: 00:00 [place] 00 :00 Medical Branch amLODIPine 2022-0 2022- No 5mg Take 5 mg U nivers 5 mg tablet 09-0118 by mouth. it y of 00:00: 00:00 [place] 00 :00 Medical Branch buPROPion 2-0 Yes [...] of 24 hr 00:00: [place] tablet 00 [facility] Branch buPROPion 2022- No 150mg Take 150 Un sushant XL 150 mg 4-20 04-21 mg by ity of 24 hr 00:00: 04:59 mouth. [place] tablet 00 :00 Medical Branch buPROPion 2022- No 150mg Take 150 Un sushant XL 150 mg 4-20 04-21 mg by ity of 24 hr 00:00: 04:59 mouth. [place] tablet 00 :00 [facility] Branch buPROPion 2022- No 150mg Take [...] 00:00: 04:59 mouth. [place] tablet 00 :00 [facility] Branch buPROPion 3- No 150mg Take 150 Un sushant XL 150 mg 4-20 04-21 mg by ity of 24 hr 00:00: 04:59 mouth. [place] tablet 00 :00 [facility] Branch buPROPion 3- No 150mg Take [...] [place] 00 (two) Medical times Branch daily. carvediloL 2020-2021- No 25mg Take 1 Univ ers 25 mg 2-30 10-18 tablet by ity of tablet 00:00: 00:00 mouth 2 [place] 00 :00 (two) Medical times Branch daily with meals. losartan 50 2020-05- No 50mg Take 1 Uni vers mg tablet 2-30 10-18 tablet by ity of 00:00: 00:00 mouth 2 [place] 00 :00 (two) Medical times Branch daily. carvediloL 2020-2021- No 25mg Take 1 Univ ers 25 mg 2-30 10-18 tablet by ity of tablet 00:00: 00:00 mouth 2 [place] 00 :00 (two) Medical times Branch daily with meals. losartan 50 2020-05- No 50mg Take 1 Uni vers mg tablet 2-30 10-18 tablet by ity of 00:00: 00:00 mouth 2 [place] 00 :00 (two) Medical times Branch daily. carvediloL 2020-05- No 25mg Take 1 Univ ers 25 mg 2-30 10-18 tablet by ity of tablet 00:00: 00:00 mouth 2 [place] 00 :00 (two) Medical times Branch daily with meals. losartan 50 2020-05- No 50mg Take 1 Uni vers mg tablet 2-30 10-18 tablet by ity of 00:00: 00:00 mouth 2 [place] 00 :00 (two) Medical times Branch daily. carvediloL 2020-05- No 25mg Take 1 Univ ers 25 mg 2-30 10-18 tablet by ity of tablet 00:00: 00:00 mouth 2 [place] 00 :00 (two) Medical times Branch daily with meals. losartan 50 2020-05- No 50mg Take 1 Uni vers mg tablet 2-30 10-18 tablet by ity of 00:00: 00:00 mouth 2 [place] 00 :00 (two) Medical times Branch daily. Immunizations Ordered Filled Immunization Date Status Comments [facility] e Immunization Name Name Influenza Virus [...] [facility]it y of Vaccine [facility], 00:00:00 [place] Me dical Preserv and ABX Branch Free 6 MO-64 YRS Influenza Virus 2022-02-27 Completed [facility]it y of Vaccine [facility], 00:00:00 [place] Me dical Preserv and ABX Branch Free 6 MO-64 YRS Influenza Virus 2022-02-27 Completed Universit y of Vaccine [facility], 00:00:00 [place] Me dical Preserv and ABX Branch Free 6 MO-64 YRS Influenza Virus 2022-02-27 Completed Universit y of Vaccine [facility], 00:00:00 [place] Me dical Preserv and ABX Branch Free 6 MO-64 YRS Influenza Virus 2022-02-27 Completed Universit y of Vaccine [facility], 00:00:00 [place] Me dical Preserv and ABX Branch Free [...] Universit y of Vaccine [facility], 00:00:00 [place] Me dical Preserv and ABX Branch Free [...] Vaccine [facility] .5 mL 00:00:00 [place] Medical 6+ MO Branch Influenza Virus 2021-06-11 Completed Universit y of Vaccine 00:00:00 [facility] Influenza Virus 2021-06-11 Completed Universit y of Vaccine 00:00:00 [facility] Influenza Virus 2021-06-11 Completed Universit y of Vaccine 00:00:00 [facility] Influenza Virus 2021-06-11 Completed Universit y of Vaccine 00:00:00 [facility] Influenza Virus 2021-06-11 Completed Universit y of Vaccine 00:00:00 [facility] Influenza Virus 2021-06-11 Completed Universit y of Vaccine 00:00:00 [facility] Influenza Virus 2021-06-11 Completed Universit y of Vaccine 00:00:00 [facility] Influenza Virus 2021-06-11 Completed Universit y of Vaccine 00:00:00 [facility] Influenza Virus 2021-06-11 Completed Universit y of Vaccine 00:00:00 [facility] Influenza Virus 2021-06-11 Completed Universit y of Vaccine 00:00:00 [facility] Influenza Virus 2021-06-11 Completed Universit y of Vaccine 00:00:00 [facility] Influenza Virus 2021-06-11 Completed Universit y of Vaccine 00:00:00 [facility] Influenza Virus 2021-06-11 Completed Universit y of Vaccine 00:00:00 [facility] Influenza Virus 2021-06-11 Completed Universit y of Vaccine 00:00:00 [facility] Branch Influenza Virus 2021-06-11 Completed Universit y of Vaccine 00:00:00 [facility] Branch Influenza Virus 2021-06-11 Completed Universit y of Vaccine 00:00:00 [facility] Branch Influenza Virus 2021-06-11 Completed Universit y of Vaccine 00:00:00 [facility] Branch Influenza Virus 2021-06-11 Completed Universit y of Vaccine 00:00:00 [facility] Influenza Virus 2021-06-11 Completed Universit y of Vaccine 00:00:00 [facility] Influenza Virus 2021-06-11 Completed Universit y of Vaccine 00:00:00 [facility] Branch Influenza Virus 2021-06-11 Completed Universit y of Vaccine 00:00:00 [facility] Influenza Virus 2021-06-11 Completed Universit y of Vaccine 00:00:00 [facility] Influenza Virus 2021-06-11 Completed Universit y of Vaccine 00:00:00 [facility] Influenza Virus 2021-06-11 Completed Universit y of Vaccine 00:00:00 [facility] Influenza Virus 2021-06-11 Completed Universit y of Vaccine 00:00:00 [facility] Influenza Virus 2021-06-11 Completed Universit y of Vaccine 00:00:00 [facility] Branch Influenza Virus 2021-06-11 Completed Universit y of Vaccine 00:00:00 [facility] Branch Influenza Virus 2021-06-11 Completed Universit y of Vaccine 00:00:00 [facility] Branch Influenza Virus 2021-06-11 Completed Universit y of Vaccine 00:00:00 [facility] Influenza Virus 2021-06-11 Completed Universit y of Vaccine 00:00:00 [facility] Branch Influenza Virus 2021-06-11 Completed Universit y of Vaccine 00:00:00 [facility] Branch Influenza Virus 2021-06-11 Completed Universit y of Vaccine 00:00:00 [facility] Branch Influenza Virus 2021-06-11 Completed Universit y of Vaccine 00:00:00 [facility] Branch Influenza Virus 2021-06-11 Completed Universit y of Vaccine 00:00:00 [facility] Branch Influenza Virus 2021-06-11 Completed [facility]it y of Vaccine 00:00:00 [facility] Influenza Virus 2021-06-11 Completed Universit y of Vaccine 00:00:00 [facility] Influenza Virus 2021-06-11 Completed Universit y of Vaccine 00:00:00 [facility] Influenza Virus 2021-06-11 Completed Universit y of Vaccine 00:00:00 [facility] Influenza Virus 2021-06-11 Completed Universit y of Vaccine 00:00:00 [facility] Influenza Virus 2021-06-11 Completed Universit y of Vaccine 00:00:00 [facility] Influenza Virus 2021-06-11 Completed Universit y of Vaccine 00:00:00 [facility] Influenza Virus 2021-06-11 Completed Universit y of Vaccine 00:00:00 [facility] Influenza Virus 2021-06-11 Completed Universit y of Vaccine 00:00:00 [facility] Influenza Virus 2021-06-11 Completed Universit y of Vaccine 00:00:00 [facility] Influenza Virus 2021-06-11 Completed Universit y of Vaccine 00:00:00 [facility] Influenza Virus 2021-06-11 Completed Universit y of Vaccine 00:00:00 [facility] Influenza Virus 2021-06-11 Completed Universit y of Vaccine 00:00:00 [facility] Influenza Virus 2021-06-11 Completed Universit y of Vaccine 00:00:00 [facility] Influenza Virus 2021-06-11 Completed Universit y of Vaccine Quad .5 mL 00:00:00 [facility] 6+ MO Branch Influenza Virus 2021-06-11 Completed Universit y of Vaccine 00:00:00 [facility] Influenza Virus 2021-06-11 Completed Universit y of Vaccine Quad .5 mL 00:00:00 [facility] IM 6+ MO Branch Influenza Virus 2021-06-11 Completed Universit y of Vaccine 00:00:00 [facility] Influenza Virus 2021-06-11 Completed Universit y of Vaccine Quad .5 mL 00:00:00 [facility] IM 6+ MO Branch Influenza Virus 2021-06-11 Completed Universit y of Vaccine 00:00:00 [facility] Influenza Virus 2021-06-11 Completed Universit y of Vaccine Quad .5 mL 00:00:00 [facility] IM 6+ MO Branch Influenza Virus 2021-06-11 Completed Universit y of Vaccine 00:00:00 [facility] Influenza Virus 2021-06-11 Completed Universit y of Vaccine Quad .5 mL 00:00:00 [facility] 6+ MO Branch Influenza Virus 2021-06-11 Completed Universit y of Vaccine 00:00:00 [facility] Influenza Virus 2021-06-11 Completed Universit y of Vaccine Quad .5 mL 00:00:00 [facility] 6+ MO Branch Influenza Virus 2021-06-11 Completed Universit y of Vaccine 00:00:00 [facility] Influenza Virus 2021-06-11 Completed Universit y of Vaccine Quad .5 mL 00:00:00 [facility] 6+ MO Branch Influenza Virus 2021-06-11 Completed Universit y of Vaccine 00:00:00 [facility] Influenza Virus 2021-06-11 Completed Universit y of Vaccine Quad .5 mL 00:00:00 [facility] 6+ MO Branch Influenza Virus 2021-06-11 Completed Universit y of Vaccine 00:00:00 [facility] Influenza Virus 2021-06-11 Completed Universit y of Vaccine Quad .5 mL 00:00:00 [facility] 6+ MO Branch Influenza Virus 2021-06-11 Completed Universit y of Vaccine 00:00:00 [facility] Influenza Virus 2021-06-11 Completed Universit y of Vaccine Quad .5 mL 00:00:00 [facility] 6+ MO Branch Influenza Virus 2021-06-11 Completed Universit y of Vaccine 00:00:00 [facility] Influenza Virus 2021-06-11 Completed Universit y of Vaccine Quad .5 mL 00:00:00 [facility] 6+ MO Branch Influenza Virus 2021-06-11 Completed Universit y of Vaccine 00:00:00 [facility] Influenza Virus 2021-06-11 Completed Universit y of Vaccine Quad .5 mL 00:00:00 [facility] 6+ MO Branch Influenza Virus 2021-06-11 Completed Universit y of Vaccine 00:00:00 [facility] Influenza Virus 2021-06-11 Completed Universit y of Vaccine Quad .5 mL 00:00:00 [facility] 6+ MO Branch Influenza Virus 2020-05-19 Completed Universit y of Vaccine 00:00:00 [facility] Influenza Virus 2020-05-19 Completed Universit y of Vaccine 00:00:00 [facility] Influenza Virus 2020-05-19 Completed Universit y of Vaccine 00:00:00 [facility] Influenza Virus 2020-05-19 Completed Universit y of Vaccine 00:00:00 [facility] Influenza Virus 2020-05-19 Completed Universit y of Vaccine 00:00:00 [facility] Influenza Virus 2020-05-19 Completed Universit y of Vaccine 00:00:00 [facility] Influenza Virus 2020-05-19 Completed Universit y of Vaccine 00:00:00 [facility] Influenza Virus 2020-05-19 Completed Universit y of Vaccine 00:00:00 [facility] Influenza Virus 2020-05-19 Completed Universit y of Vaccine 00:00:00 [facility] Influenza Virus 2020-05-19 Completed Universit y of Vaccine 00:00:00 [facility] Influenza Virus 2020-05-19 Completed Universit y of Vaccine 00:00:00 [facility] Influenza Virus 2020-05-19 Completed Universit y of Vaccine 00:00:00 [facility] Influenza Virus 2020-05-19 Completed Universit y of Vaccine 00:00:00 [facility] Influenza Virus 2020-05-19 Completed Universit y of Vaccine 00:00:00 [facility] Influenza Virus 2020-05-19 Completed Universit y of Vaccine 00:00:00 [facility] Influenza Virus 2020-05-19 Completed Universit y of Vaccine 00:00:00 [facility] Influenza Virus 2020-05-19 Completed Universit y of Vaccine 00:00:00 [facility] Influenza Virus 2020-05-19 Completed Universit y of Vaccine 00:00:00 [facility] Influenza Virus 2020-05-19 Completed Universit y of Vaccine 00:00:00 [facility] Influenza Virus 2020-05-19 Completed Universit y of Vaccine 00:00:00 [facility] Influenza Virus 2020-05-19 Completed Universit y of Vaccine 00:00:00 [facility] Influenza Virus 2020-05-19 Completed Universit y of Vaccine 00:00:[address] [facility] [place] Influenza Virus 2020-05-19 Completed Universit y of Vaccine 00:00:00 [facility] Influenza Virus 2020-05-19 Completed Universit y of Vaccine 00:00:00 [facility] Influenza Virus 2020-05-19 Completed Universit y of Vaccine 00:00:[address] [facility] [place] Influenza Virus 2020-05-19 Completed Universit y of Vaccine 00:00:00 [facility] Influenza Virus 2020-05-19 Completed Universit y of Vaccine 00:00:[address] [facility] [place] Influenza Virus 2020-05-19 Completed Universit y of Vaccine 00:00:00 [facility] Branch Influenza Virus 2020-05-19 Completed Universit y of Vaccine 00:00:00 [facility] Branch Influenza Virus 2020-05-19 Completed Universit y of Vaccine 00:00:00 [facility] Branch Influenza Virus 2020-05-19 Completed Universit y of Vaccine 00:00:00 [facility] Influenza Virus 2020-05-19 Completed Universit y of Vaccine 00:00:00 [facility] Influenza Virus 2020-05-19 Completed Universit y of Vaccine 00:00:00 [facility] Branch Influenza Virus 2020-05-19 Completed Universit y of Vaccine 00:00:00 [facility] Branch Influenza Virus 2020-05-19 Completed Universit y of Vaccine 00:00:00 [facility] Branch Influenza Virus 2020-05-19 Completed Universit y of Vaccine 00:00:00 [facility] Influenza Virus 2020-05-19 Completed Universit y of Vaccine 00:00:00 [facility] Influenza Virus 2020-05-19 Completed Universit y of Vaccine 00:00:00 [facility] Branch Influenza Virus 2020-05-19 Completed Universit y of Vaccine 00:00:00 [facility] Influenza Virus 2020-05-19 Completed Universit y of Vaccine 00:00:00 [facility] Influenza Virus 2020-05-19 Completed Universit y of Vaccine 00:00:00 [facility] Influenza Virus 2020-05-19 Completed Universit y of Vaccine 00:00:00 [facility] Influenza Virus 2020-05-19 Completed Universit y of Vaccine 00:00:00 [facility] Influenza Virus 2020-05-19 Completed Universit y of Vaccine 00:00:[address] [place] [facility] [place] Influenza Virus 2020-05-19 Completed Universit y of Vaccine 00:00:00 [facility] Influenza Virus 2020-05-19 Completed Universit y of Vaccine 00:00:00 [facility] Influenza Virus 2020-05-19 Completed Universit y of Vaccine 00:00:00 [facility] Influenza Virus 2020-05-19 Completed Universit y of Vaccine 00:00:00 [facility] Influenza Virus 2020-05-19 Completed Universit y of Vaccine 00:00:00 [facility] Influenza Virus 2020-05-19 Completed Universit y of Vaccine 00:00:00 [facility] Influenza Virus 2020-05-19 Completed Universit y of Vaccine 00:00:00 [facility] Influenza Virus 2020-05-19 Completed Universit y of Vaccine 00:00:00 [facility] Influenza Virus 2020-05-19 Completed Universit y of Vaccine 00:00:00 [facility] Influenza Virus 2020-05-19 Completed Universit y of Vaccine 00:00:00 [facility] Influenza Virus 2020-05-19 Completed Universit y of Vaccine 00:00:00 [facility] Influenza Virus 2020-05-19 Completed Universit y of Vaccine 00:00:00 [facility] Influenza Virus 2020-05-19 Completed Universit y of Vaccine 00:00:00 [facility] Influenza Virus 2020-05-19 Completed Universit y of Vaccine 00:00:00 [facility] Influenza Virus 2020-05-19 Completed Universit y of Vaccine 00:00:00 [facility] Influenza Virus 2020-05-19 Completed Universit y of Vaccine 00:00:00 [facility] Influenza Virus 2020-05-16 Completed Universit y of [...] (ADACEL) 2019-05-21 Completed University of VACCINE 00:00:00 [facility] TDAP (ADACEL) 2019-05-21 Completed University of VACCINE 00:00:00 [facility] TDAP (ADACEL) 2019-05-21 Completed University of VACCINE 00:00:00 [facility] TDAP (ADACEL) 2019-05-21 Completed University of VACCINE 00:00:00 [facility] TDAP (ADACEL) 2019-05-21 Completed University of VACCINE 00:00:00 [facility] TDAP (ADACEL) 2019-05-21 Completed University of VACCINE 00:00:00 [facility] TDAP (ADACEL) 2019-05-21 Completed University of VACCINE 00:00:00 [facility] TDAP (ADACEL) 2019-05-21 Completed University of VACCINE 00:00:00 [facility] TDAP (ADACEL) 2019-05-21 Completed University of VACCINE 00:00:00 [facility] TDAP (ADACEL) 2019-05-21 Completed University of VACCINE 00:00:00 [facility] TDAP (ADACEL) 2019-05-21 Completed University of VACCINE 00:00:00 [facility] TDAP (ADACEL) 2019-05-21 Completed University of VACCINE 00:00:00 [facility] TDAP (ADACEL) 2019-05-21 Completed University of VACCINE 00:00:00 [facility] TDAP (ADACEL) 2019-05-21 Completed University of VACCINE 00:00:00 [facility] TDAP (ADACEL) 2019-05-21 Completed University of VACCINE 00:00:00 [facility] TDAP (ADACEL) 2019-05-21 Completed University of VACCINE 00:00:00 [facility] TDAP (ADACEL) 2019-05-21 Completed University of VACCINE 00:00:00 [facility] TDAP (ADACEL) 2019-05-21 Completed University of VACCINE 00:00:00 [facility] TDAP (ADACEL) 2019-05-21 Completed University of VACCINE 00:00:00 [facility] TDAP (ADACEL) 2019-05-21 Completed University of VACCINE 00:00:00 [facility] TDAP (ADACEL) 2019-05-21 Completed University of VACCINE 00:00:00 [facility] TDAP (ADACEL) 2019-05-21 Completed University of VACCINE 00:00:00 [facility] TDAP (ADACEL) 2019-05-21 Completed University of VACCINE 00:00:00 [facility] TDAP (ADACEL) 2019-05-21 Completed University of VACCINE 00:00:00 [facility] TDAP (ADACEL) 2019-05-21 Completed University of VACCINE 00:00:00 [facility] TDAP (ADACEL) 2019-05-21 Completed University of VACCINE 00:00:00 [facility] TDAP (ADACEL) 2019-05-21 Completed University of VACCINE 00:00:00 [facility] TDAP (ADACEL) 2019-05-21 Completed University of VACCINE 00:00:00 [facility] TDAP (ADACEL) 2019-05-21 Completed University of VACCINE 00:00:00 [facility] TDAP (ADACEL) 2019-05-21 Completed University of VACCINE 00:00:00 [facility] TDAP (ADACEL) 2019-05-21 Completed University of VACCINE 00:00:00 [facility] TDAP (ADACEL) 2019-05-21 Completed University of VACCINE 00:00:00 [facility] TDAP (ADACEL) 2019-05-21 Completed University of VACCINE 00:00:00 [facility] TDAP (ADACEL) 2019-05-21 Completed University of VACCINE 00:00:00 [facility] TDAP (ADACEL) 2019-05-21 Completed University of VACCINE 00:00:00 [facility] TDAP (ADACEL) 2019-05-21 Completed University of VACCINE 00:00:00 [facility] TDAP (ADACEL) 2019-05-21 Completed University of VACCINE 00:00:00 [facility] TDAP (ADACEL) 2019-05-21 Completed University of VACCINE 00:00:00 [facility] TDAP (ADACEL) 2019-05-21 Completed University of VACCINE 00:00:00 [facility] TDAP (ADACEL) 2019-05-21 Completed University of VACCINE 00:00:00 [facility] TDAP (ADACEL) 2019-05-21 Completed University of VACCINE 00:00:00 [facility] TDAP (ADACEL) 2019-05-21 Completed University of VACCINE 00:00:00 [facility] TDAP (ADACEL) 2019-05-21 Completed University of VACCINE 00:00:00 [facility] TDAP (ADACEL) 2019-05-21 Completed University of VACCINE 00:00:00 [facility] TDAP (ADACEL) 2019-05-21 Completed University of VACCINE 00:00:00 [facility] TDAP (ADACEL) 2019-05-21 Completed University of VACCINE 00:00:00 [facility] TDAP (ADACEL) 2019-05-21 Completed University of VACCINE 00:00:00 [facility] TDAP (ADACEL) 2019-05-21 Completed University of VACCINE 00:00:00 [facility] TDAP (ADACEL) 2019-05-21 Completed University of VACCINE 00:00:00 [facility] TDAP (ADACEL) 2019-05-21 Completed University of VACCINE 00:00:00 [facility] TDAP (ADACEL) 2019-05-21 Completed University of VACCINE 00:00:00 [facility] TDAP (ADACEL) 2019-05-21 Completed University of VACCINE 00:00:00 [facility] TDAP (ADACEL) 2019-05-21 Completed University of VACCINE 00:00:00 [facility] TDAP (ADACEL) 2019-05-21 Completed University of VACCINE 00:00:00 [facility] TDAP (ADACEL) 2019-05-21 Completed University of VACCINE 00:00:00 [facility] TDAP (ADACEL) 2019-05-21 Completed University of VACCINE 00:00:00 [facility] TDAP (ADACEL) 2019-05-21 Completed University of VACCINE 00:00:00 [facility] TDAP (ADACEL) 2019-05-21 Completed University of VACCINE 00:00:00 [facility] TDAP (ADACEL) 2019-05-21 Completed University of VACCINE 00:00:00 [facility] TDAP (ADACEL) 2019-05-21 Completed University of VACCINE 00:00:00 [facility] Influenza Virus 2019-02-06 Completed Universit y of Vaccine Quad .5 mL 00:00:00 [facility] 6+ MO Branch Influenza Virus 2019-02-06 Completed Universit y of Vaccine Quad .5 mL 00:00:00 [facility] IM 6+ MO Branch Influenza [...] Vaccine Quad .5 mL 00:00:00 [facility] 6+ MO [facility] Influenza Virus 2019-02-06 Completed Universit y of Vaccine Quad .5 mL 00:00:00 [facility] 6+ MO [facility] Influenza Virus 2019-02-06 Completed [facility]it y of Vaccine Quad .5 mL 00:00:00 [facility] 6+ MO [facility] Influenza Virus 2019-02-06 Completed [facility]it y of Vaccine Quad .5 mL 00:00:00 [facility] 6+ MO [facility] Influenza Virus 2019-02-06 Completed [facility]it y of Vaccine Quad .5 mL 00:00:00 [facility] 6+ MO [facility] Influenza Virus 2019-02-06 [...] y of Vaccine Quad .5 mL 00:00:00 [facility] 6+ MO Branch Influenza Virus 2019-02-06 Completed [...] 21:40:00 122 mm[Hg] Univer sity of pressure [facility] Diastolic blood 2022-11-21 21:40:00 90 mm[Hg] Unive rsity of pressure [facility] Heart rate 2022-11-21 21:40:00 92 /min [facility]i [facility] of [place] [facility] [place] Respiratory rate 2022-11-21 21:40:00 16 /min [facility] Oxygen saturation in 2022-11-21 21:40:00 99 /min University of Arterial blood by [place] [employer] [facility] Pulse oximetry Branch Body temperature 2022-11-21 18:07:00 37.28 Irene [facility] Body weight 2022-11-21 18:07:00 [facility] BMI 2022-11-21 18:07:00 28.34 [facility]m2 [facility] Systolic blood 2022-09-05 17:22:00 139 mm[Hg] Univer sity of pressure [facility] Branch Diastolic blood 2022-09-05 17:22:00 91 mm[Hg] Unive rsity of pressure [facility] Heart rate 2022-09-05 17:22:00 120 /min Universi ty of [facility] Respiratory rate 2022-09-05 17:22:00 18 /min Univ ersity of [facility] Oxygen saturation in 2022-09-05 17:22:00 99 /min University of Arterial blood by [facility] Pulse oximetry Branch Body temperature 2022-09-05 13:43:00 37.11 Irene Univ ersity of [facility] Body weight 2022-09-05 13:43:00 68.04 kg [facility]i ty of [facility] BMI 2022-09-05 13:43:00 28.34 kg/m2 [facility] Systolic blood 2022-08-01 00:49:00 138 mm[Hg] Univer sity of pressure [facility] Diastolic blood 2022-08-01 00:49:00 104 mm[Hg] Unive rsity of pressure [facility] Heart rate 2022-08-01 00:49:00 108 /min Universi ty of [facility] Respiratory rate 2022-08-01 00:49:00 18 /min Univ ersity of [facility] Oxygen saturation in 2022-08-01 00:49:00 99 /min University of Arterial blood by [facility] Pulse oximetry Branch Body temperature 2022-07-31 22:52:00 37.11 Irene Univ ersity of [facility] Body height 2022-07-31 22:52:00 154.9 cm [facility]i [facility] of [facility] Body weight 2022-07-31 22:52:00 68.04 kg [facility] BMI 2022-07-31 22:52:00 28.34 kg/m2 [facility] Systolic blood 2022-07-15 15:32:00 130 mm[Hg] Univer sity of pressure [facility] Diastolic blood 2022-07-15 15:32:00 90 mm[Hg] Unive rsity of pressure [facility] Heart rate 2022-07-15 15:31:00 81 /min Universi ty of [facility] Body temperature 2022-07-15 15:31:00 36.94 Irene Univ ersity of [facility] Respiratory rate 2022-07-15 15:31:00 16 /min Univ ersity of [facility] Body weight 2022-07-15 15:31:00 68.493 kg [facility] BMI 2022-07-15 15:31:00 28.53 kg/m2 [facility] Oxygen saturation in 2022-07-15 15:31:00 99 /min [facility] Arterial blood by [place] [facility]xim[facility] Systolic blood 2022-06-23 15:26:00 111 mm[Hg] Univer sity of pressure [facility] Diastolic blood 2022-06-23 15:26:00 75 mm[Hg] Unive rsity of pressure [facility] Heart rate 2022-06-23 15:26:00 108 /min [facility]i [facility] Body temperature 2022-06-23 15:26:00 36.83 Irene Univ ersity of [facility] Respiratory rate 2022-06-23 15:26:00 18 /min Univ ersity of [facility] Body height 2022-06-23 15:26:00 154.9 cm [facility] Body weight 2022-06-23 15:26:00 71.385 kg [facility] BMI 2022-06-23 15:26:00 29.74 kg/m2 [facility] Oxygen saturation in 2022-06-23 15:26:00 99 /min [facility] blood by [facility] Pulse oximetry Branch Systolic blood 2022-05-05 22:05:00 126 mm[Hg] [facility] Diastolic blood 2022-05-05 22:05:00 75 mm[Hg] [facility] Heart rate 2022-05-05 22:05:00 99 /min [facility] Respiratory rate 2022-05-05 22:05:00 16 /min [facility] Oxygen saturation in 2022-05-05 22:05:00 99 /min [facility] blood by [facility] Body temperature 2022-05-05 18:24:00 37.11 Irene [facility] Body height 2022-05-05 18:24:00 154.9 cm [facility] Body weight 2022-05-05 18:24:00 54.432 kg [facility] BMI 2022-05-05 18:24:00 22.67 kg/m2 [facility] Systolic blood 2022-04-26 14:28:00 135 mm[Hg] [facility] Diastolic blood 2022-04-26 14:28:00 95 mm[Hg] [facility] Heart rate 2022-04-26 14:28:00 93 /min [facility] Body temperature 2022-04-26 14:28:00 36.89 Irene [facility] Respiratory rate 2022-04-26 14:28:00 18 /min [facility] Body height 2022-04-26 14:28:00 154.9 cm [facility] Body weight 2022-04-26 14:28:00 54.432 kg [facility] BMI 2022-04-26 14:28:00 22.67 kg/m2 [facility] Oxygen saturation in 2022-04-26 14:28:00 100 /min [facility] [place] [employer] [facility] Pulse oxim[facility] Systolic blood 2022-04-26 00:21:00 151 mm[Hg] [facility] Diastolic blood 2022-04-26 00:21:00 98 mm[Hg] [facility] Heart rate 2022-04-26 00:21:00 98 /min [facility] Body temperature 2022-04-26 00:21:00 36.72 Irene [facility] Respiratory rate 2022-04-26 00:21:00 18 /min [facility] Body height 2022-04-26 00:21:00 154.9 cm [facility] Body weight 2022-04-26 00:21:00 54.432 kg [facility] BMI 2022-04-26 00:21:00 22.67 kg/m2 [facility] Oxygen saturation in 2022-04-26 00:21:00 100 /min [facility] [place] [facility] Systolic blood 2022-04-09 14:39:00 122 mm[Hg] [facility] Diastolic blood 2022-04-09 14:39:00 84 mm[Hg] [facility] Heart rate 2022-04-09 14:39:00 96 /min [facility] Body height 2022-04-09 14:39:00 154.9 cm [facility] Body weight 2022-04-09 14:39:00 60.328 kg [facility] BMI 2022-04-09 14:39:00 25.13 kg/m2 [facility] Oxygen saturation in 2022-04-09 14:39:00 98 /min [facility] by [facility] P[facility] oxim[facility] Systolic blood 2022-04-07 22:43:36 [...] 97 /min [facility] Body temperature 2022-04-07 19:41:00 37.17 Irene [facility] Body height 2022-04-07 19:41:00 154.9 cm [facility] Body weight 2022-04-07 19:41:00 60.328 kg [facility] BMI 2022-04-07 19:41:00 25.13 kg/m2 [facility] Systolic blood 2022-03-24 19:00:00 125 mm[Hg] [facility] Diastolic blood 2022-03-24 19:00:00 86 mm[Hg] [facility] Heart rate 2022-03-24 19:00:00 93 /min [facility] Respiratory rate 2022-03-24 19:00:00 17 /min [facility] Oxygen saturation in 2022-03-24 19:00:00 97 /min [facility] Body temperature 2022-03-24 13:33:00 36.78 Irene [facility] Systolic blood 2022-03-15 19:23:00 128 mm[Hg] [facility] Diastolic blood 2022-03-15 19:23:00 89 mm[Hg] [facility] Heart rate 2022-03-15 19:23:00 104 /min [facility] Body weight 2022-03-15 19:23:00 60.328 kg [facility] BMI 2022-03-15 19:23:00 25.13 kg/m2 [facility] Oxygen saturation in 2022-03-15 19:23:00 98 /min [facility] [place] [employer] [facility] Systolic blood 2022-03-15 15:02:00 115 mm[Hg] [facility] Diastolic blood 2022-03-15 15:02:00 70 mm[Hg] [facility] Heart rate 2022-03-15 15:02:00 85 /min [facility] Respiratory rate 2022-03-15 15:02:00 20 /min [facility] [place] [facility] Oxygen saturation in 2022-03-15 15:02:00 99 /min [facility] [place] [employer] [facility] Body temperature 2022-03-15 13:38:00 36.94 Irene [facility] Body height 2022-03-15 13:38:00 154.9 cm [facility] Body weight 2022-03-15 13:38:00 54.432 kg [facility] BMI 2022-03-15 13:38:00 22.67 kg/m2 [facility] Systolic blood 2022-03-11 16:30:00 124 mm[Hg] [facility] Diastolic blood 2022-03-11 16:30:00 88 mm[Hg] [facility] Heart rate 2022-03-11 16:30:00 93 /min [facility] Body temperature 2022-03-11 16:30:00 36.67 Irene [facility] Respiratory rate 2022-03-11 16:30:00 14 /min [facility] Oxygen saturation in 2022-03-11 16:30:00 100 /min [facility] [place] [employer] [facility] Body height 2022-03-11 14:19:00 154.9 cm [facility] Body weight 2022-03-11 14:19:00 58.968 kg [facility] BMI 2022-03-11 14:19:00 24.56 kg/m2 [facility] Systolic blood 2022-02-27 14:14:00 140 mm[Hg] [facility] Diastolic blood 2022-02-27 14:14:00 90 mm[Hg] [facility] Heart rate 2022-02-27 14:14:00 103 /min [facility] Body height 2022-02-27 14:14:00 154.9 cm [facility] Body weight 2022-02-27 14:14:00 59.194 kg [facility] BMI 2022-02-27 14:14:00 24.66 kg/m2 [facility] Oxygen saturation in 2022-02-27 14:14:00 100 /min [facility] [place] [facility] Systolic blood 2022-02-27 13:19:00 131 mm[Hg] [facility] Diastolic blood 2022-02-27 13:19:00 86 mm[Hg] [facility] Heart rate 2022-02-27 13:19:00 102 /min [facility] Body temperature 2022-02-27 13:19:00 36.33 Irene [facility] Body height 2022-02-27 13:19:00 154.9 cm [facility] Body weight 2022-02-27 13:19:00 58.968 kg [facility] BMI 2022-02-27 13:19:00 24.56 kg/m2 [facility] Oxygen saturation in 2022-02-27 13:19:00 99 /min [facility] [place] [facility] Systolic blood 2022-02-21 08:06:00 135 mm[Hg] [facility] Diastolic blood 2022-02-21 08:06:00 97 mm[Hg] [facility] Heart rate 2022-02-21 08:06:00 98 /min [facility] Respiratory rate 2022-02-21 08:06:00 16 /min [facility] Oxygen saturation in 2022-02-21 08:06:00 97 /min [facility] by [facility] Body temperature 2022-02-21 06:16:00 36.94 Irene [facility] Body height 2022-02-21 06:16:00 154.9 cm [facility] Body weight 2022-02-21 06:16:00 60.963 kg [facility] BMI 2022-02-21 06:16:00 25.39 kg/m2 [facility] Systolic blood 2022 20:08:00 136 mm[Hg] [facility] Diastolic blood 2022 20:08:00 96 mm[Hg] [facility] Heart rate 2022 20:08:00 100 /min [facility] Respiratory rate 2022 20:08:00 20 /min [facility] Oxygen saturation in 2022 20:08:00 98 /min [facility] by [facility] Body temperature 2022 16:56:00 37.06 Irene [facility] Body weight 2022 16:56:00 54.432 kg [facility] BMI 2022 16:56:00 22.67 kg/m2 [facility] Systolic blood 2022-02-05 14:31:00 128 mm[Hg] [facility] Diastolic blood 2022-02-05 14:31:00 84 mm[Hg] [facility] Heart rate 2022-02-05 14:31:00 86 /min [facility] Body temperature 2022-02-05 14:31:00 37.89 Irene [facility] Respiratory rate 2022-02-05 14:31:00 18 /min [facility] Body height 2022-02-05 14:31:00 154.9 cm [facility] Body weight 2022-02-05 14:31:00 54.432 kg [facility] BMI 2022-02-05 14:31:00 22.67 kg/m2 [facility] Oxygen saturation in 2022-02-05 14:31:00 98 /min [facility] by [facility] Systolic blood 2022-01-18 14:50:00 144 mm[Hg] [facility] Diastolic blood 2022-01-18 14:50:00 92 mm[Hg] [facility] Heart rate 2022-01-18 14:50:00 94 /min [facility] Respiratory rate 2022-01-18 14:50:00 20 /min [facility] Oxygen saturation in 2022-01-18 14:50:00 99 /min [facility] by [facility] Body weight 2022-01-18 10:18:00 54.432 kg [facility] BMI 2022-01-18 10:18:00 22.67 kg/m2 [facility] Body temperature 2022-01-18 10:15:00 36.72 Irene [facility] Systolic blood 2022-01-15 15:48:26 125 mm[Hg] [facility] Diastolic blood 2022-01-15 15:48:26 85 mm[Hg] [facility] Heart rate 2022-01-15 15:48:26 95 /min [facility] Respiratory rate 2022-01-15 15:48:26 18 /min [facility] Oxygen saturation in 2022-01-15 15:48:26 98 /min [facility] by [facility] Body temperature 2022-01-15 13:32:00 37.11 Irene [facility] Body height 2022-01-15 13:32:00 154.9 cm [facility] Body weight 2022-01-15 13:32:00 54.432 kg [facility] [place] [facility] [place] BMI 2022-01-15 13:32:00 22.67 kg/m2 [facility] of [facility] Systolic blood 2022-01-09 00:37:11 127 mm[Hg] Univer sity of pressure [facility] Diastolic blood 2022-01-09 00:37:11 90 mm[Hg] Unive rsity of [facility] Heart rate 2022-01-09 00:37:11 94 /min [facility]i ty of [facility] Body temperature 2022-01-09 00:37:11 37.11 Irene Univ ers[facility] of [facility] Respiratory rate 2022-01-09 00:37:11 16 /min [facility] Oxygen saturation in 2022-01-09 00:37:11 97 /min [facility] Arterial blood by [facility] Pulse oximetry Branch Body height 2022-01-08 23:03:00 154.9 cm [facility]i [facility] of [facility] Body weight 2022-01-08 23:03:00 58.06 kg [facility] of [facility] BMI 2022-01-08 23:03:00 24.19 kg/m2 [facility] of [facility] Systolic blood 2021-12-12 18:00:00 126 mm[Hg] Univer sity of [facility] Diastolic blood 2021-12-12 18:00:00 87 mm[Hg] Unive rsity of [facility] Heart rate 2021-12-12 18:00:00 86 /min [facility] of [facility] Body temperature 2021-12-12 18:00:00 36.89 Irene Univ ersity of [facility] Respiratory rate 2021-12-12 18:00:00 18 /min Univ ersity of [facility] Body height 2021-12-12 18:00:00 154.9 cm [facility] of [facility] Body weight 2021-12-12 18:00:00 57.153 kg [facility] of [facility] BMI 2021-12-12 18:00:00 23.81 kg/m2 [facility] Procedures Procedure Date / Time Performing Clinician Source Performed ASSIGNMENT OF BENEFITS 2022-11-21 19:49:02 Doctor Unassigned, No [facility] CONSENT/REFUSAL FOR 2022-11-21 18:03:25 Doctor Unassigned, No [facility] [place] [facility] CONSENT/REFUSAL FOR 2022-09-05 13:42:02 Doctor Unassigned, No [facility] [place] [facility] Name [facility] LIPASE 2022-07-31 23:13:00 Manju Newell [facility] TEST, SERUM 2022-07-31 23:13:00 [facility] METABOLIC PANEL 2022-07-31 23:13:00 Manju Newell Un iversity [facility] ([id number]) [facility] CBC WITH DIFF 2022-07-31 23:13:00 [facility] CONSENT/REFUSAL FOR 2022-07-31 22:49:17 Doctor [facility]igned, No [facility] XR ANKLE 3+ VW RIGHT 2022-07-15 16:00:00 Cari Kaur [facility] XR FOOT 3+ VW RIGHT 2022-07-15 16:00:00 NatashaCari draper [facility] XR FOOT 3+ VW RIGHT 2022-07-15 16:00:00 Cari Kaur [facility] PATIENT FINANCIAL 2022-07-15 15:25:53 Doctor Unassigned, No [facility] POLICY [facility] POCT MOLECULAR STREP 2022-06-23 16:06:00 Unknown, Attending [facility] ASSIGNMENT OF BENEFITS 2022-06-23 15:18:28 Doctor Unassigned, No [facility] COMP. METABOLIC PANEL 2022-05-05 19:14:00 Karon Norton [facility] ([id number]) [facility] CBC WITH DIFF 2022-05-05 19:14:[address] [facility] POCT TEST 2022-05-05 19:00:00 Karon Norton [facility] URINALYSIS 2022-05-05 18:58:[address] [facility] CT ABDOMEN PELVIS WO 2022-04-26 15:11:00 Zion Bridges [facility] CONTRAST [facility] COMP. METABOLIC PANEL 2022-04-26 14:49:00 Zion Bridges [facility] ([id number]) Medical [place] CBC WITH DIFF 2022-04-26 14:49:00 [facility] URINALYSIS 2022-04-26 14:49:00 Singer [facility] POCT TEST 2022-04-26 14:45:00 Zion Bridges [facility] CONSENT/REFUSAL FOR 2022-04-26 14:22:29 Doctor Unassigned, No [facility] [place] [facility] POCT TEST 2022-04-26 01:22:00 Zion Bridges [facility] ASSIGNMENT OF BENEFITS 2022-04-26 00:54:02 Doctor Unassigned, No [facility] URINALYSIS 2022-04-26 00:45:00 Singer [facility] CONSENT/REFUSAL FOR 2022-04-26 00:16:47 Doctor Unassigned, No [facility] [place] [facility] BASIC METABOLIC PANEL 2022-04-07 22:35:00 Olamide Garvin [facility] (NA, K, CL, CO2, Medical Branch GLUCOSE, BUN, CREATININE, CA) CBC WITH DIFF 2022-04-07 22:35:[address] [facility] URINALYSIS 2022-04-07 21:36:[address] [facility] URINE DRUG (IMMUNOASSAY) 2022-04-07 21:36:00 Olamide Garvin [facility] [place] - COMPREHENSIVE DRUG Medical Bra nch SCREEN W/O REFLEX CONSENT/REFUSAL FOR 2022-04-07 19:29:15 Doctor Unassigned, No [facility] [place] [facility] POCT TEST 2022-03-24 14:07:00 Kellie Duncan [facility] CONSENT/REFUSAL FOR 2022-03-24 13:27:20 Doctor Unassigned, No [facility] [place] [facility] Name Medical [facility] CT ABDOMEN PELVIS WO 2022-03-15 14:09:04 Anna Gould [facility] URINALYSIS 2022-03-15 13:53:00 Anna Gould [facility] POCT TEST 2022-03-15 13:52:00 Anna Gould [facility] CONSENT/REFUSAL FOR 2022-03-15 13:37:02 Doctor Unassigned, No [facility] [place] [facility] Name [facility] POCT TEST 2022-03-11 14:59:00 Angelica Viveros [facility] ty [facility] FLU VACC (), 6 2022-02-27 13:34:55 Vijay Martinez [facility] MO-64 YRS, .5ML, IM, Medical Bra [facility] QUAD (FLUCELVAX) NOTICE OF PRIVACY 2022-02-21 06:06:30 Doctor Unassigned, No [facility] PRACTICES Name [facility] CONSENT/REFUSAL FOR 2022-02-21 06:03:41 Doctor Unassigned, No [facility] [place] [facility] Name [facility] XR ANKLE <3 VW RIGHT 2022 17:56:42 Maggie Hamilton [facility] CT ABDOMEN PELVIS W 2022 17:44:17 Maggie Hamilton [facility] CT TRAUMA CERVICAL SPINE 2022 17:43:49 Maggie Hamilton [facility] WO CONTRAST [facility] POCT TEST 2022 17:27:00 Maggie Hamilton [facility] COMP. METABOLIC PANEL 2022 17:17:00 Maggie Hamilton [facility] ([id number]) [facility] CBC WITH DIFF 2022 17:17:00 Maggie Hamilton [facility] CONSENT/REFUSAL FOR 2022 16:53:13 Doctor Unassigned, No [facility] [place] [facility] Name [facility] US GALL BLADDER 2022-01-18 12:31:09 Bernardo Levy [place] [facility] US PELVIS COMPLETE WITH 2022-01-18 12:21:13 Melvin Zhao [facility] TRANSVAGINAL [facility] CT ABDOMEN PELVIS W 2022-01-18 11:20:50 Melvin Zhao [facility] CONTRAST [facility] POCT TEST 2022-01-18 10:57:00 Jayy Kennedy [facility] COVID-19 (ID NOW RAPID 2022-01-18 10:57:00 Jayy Kennedy [facility] TESTING) Medical Branch URINALYSIS 2022-01-18 10:47:00 Jayy Kennedy [facility] LIPASE 2022-01-18 10:29:00 Jayy Kennedy [facility] TEST, SERUM 2022-01-18 10:29:00 KennedyJayy [facility] HEPATIC FUNCTION PANEL 2022-01-18 10:29:00 Jayy Kennedy [facility] ([id number]) (ALB,T.PRO,BILI Medical Branch T,BU/BC,ALT,AST,ALK PHOS) BASIC METABOLIC PANEL 2022-01-18 10:29:00 Jayy Kennedy [facility] (NA, K, CL, CO2, Medical [facility] GLUCOSE, BUN, CREATININE, CA) CBC WITH DIFF 2022-01-18 10:29:00 Jayy Kennedy [facility] CONSENT/REFUSAL FOR 2022-01-18 10:13:31 Doctor Unassigned, No [facility] [place] [facility] Name [facility] CT HEAD WO CONTRAST 2022-01-15 15:22:29 Danita [facility] TEST, SERUM 2022-01-15 14:36:00 Danita [facility] BASIC METABOLIC PANEL 2022-01-15 14:36:00 Danita [facility] (NA, K, CL, CO2, [facility] GLUCOSE, BUN, CREATININE, CA) CBC WITH DIFF 2022-01-15 14:36:00 Danita [facility] CONSENT/REFUSAL FOR 2022-01-15 13:28:12 Doctor Unassigned, No [facility] Name Medical Branch XR CERVICAL SPINE 4 VW 2022-01-09 00:29:16 Humberto Ochoa [facility] XR LUMBAR SPINE 4 VW 2022-01-09 00:29:16 Humber[facility]cho[facility] SP[facility] THORACIC 3 VW 2022-01-09 00:29:16 Humberto Ochoa [facility] URINALYSIS 2022-01-08 23:50:[address] [facility] CONSENT/REFUSAL FOR 2022-01-08 22:51:08 Doctor Unassigned, No Un [facility] DIAGNOSIS AND TREATMENT Name Medical Branch GALV ONLY - VAGINAL 2021-12-12 18:37:00 Prasanna Vargas [facility] PATHOGENS BY [facility] ACID TESTING URINE CULTURE 2021-12-12 18:32:00 Prasanna Vargas [place] [facility] POCT TEST 2021-12-12 18:31:00 Prasanna Vargas [facility] POCT URINALYSIS W/O 2021-12-12 18:31:00 Prasanna Vargas [facility] SPECIFIC GRAVITY [facility] Encounters Start End Encounter Admission Attending Care Care Encounter Source Date/Time Date/Time Type Type Clinicians Facility Department ID 2021-03-14 Emergency [facility] [id number] Univers 03:14:31 ity of [facility] 2021-03-13 Emergency [facility] [id number] Univers 20:05:20 ity of [facility] 2021-03-13 Emergency [facility] [id number] Univers 12:48:28 ity of [facility] 2021-03-13 Emergency [facility] [id number] Univers 02:43:51 ity of [facility] 2021-03-13 Emergency [facility] [id number] Univers 00:27:09 ity of [facility] 2021-03-12 Emergency [facility] [id number] Univers 22:10:36 ity of [facility] 2021-03-12 Emergency [facility] [id number] Univers 20:04:05 ity of [facility] 2021-03-12 Emergency [facility] [id number] Univers 15:25:05 ity of [facility] 2021-03-12 Emergency [facility] [id number] Univers 11:43:36 ity of [facility] 2021-03-12 Emergency [facility] [id number] Univers 07:41:37 ity of [facility] 2021-03-12 Emergency [facility] [id number] Univers 05:43:47 ity of [facility] 2021-03-12 Emergency [facility] [id number] Univers 03:43:41 ity of [facility] 2021-03-12 Emergency [facility] [id number] Univers 01:31:27 ity of [facility] 2021-03-12 Emergency X [facility] [id number] Univers 00:56:44 ity of [facility] 2021-03-12 Emergency [facility] [id number] Univers 00:56:31 ity of [facility] 2021-03-11 Emergency [facility] [id number] Univers 17:47:02 ity of [facility] 2021-03-11 Emergency [facility] [id number] Univers 16:27:15 ity of [facility] 2021-03-11 Emergency [facility] [id number] Univers 12:00:58 ity of [facility] 2021-03-11 Emergency [facility] [id number] Univers 10:33:59 ity of [facility] 2021-03-11 Emergency [facility] [id number] Univers 01:36:52 ity of [facility] 2021-03-10 Emergency [facility] [id number] Univers 23:35:34 ity of [facility] 2021-03-10 Emergency [facility] [id number] Univers 19:06:16 ity of [facility] 2021-03-10 Emergency [facility] [id number] Univers 12:39:47 ity of [facility] 2021-03-10 Emergency [facility] [id number] Univers 06:54:04 ity of [facility] 2021-03-09 Outpatient P [facility] [id number] Univers 13:25:44 ity of [facility] 2021-03-09 Outpatient P [facility] [id number] Univers 13:08:01 ity of [facility] 2021-03-09 Outpatient P [facility] [id number] Univers 12:37:25 ity [facility] 2021-03-09 Outpatient P [facility] [id number] Univers 11:51:20 ity [facility] 2022-12-14 2022-12-14 Outpatient [facility] [id number] Willis 18:37:13 18:37:13 0804 F Jeffery 2022-12-13 2022-12-13 Outpatient ERICKSON_R [facility] [id number] [place] 00:00:00 00:00:00 [facility] 2022-12-12 2022-12-12 Outpatient R PRASANNA VARGAS [facility] [id number] Univers 09:30:00 09:30:00 ity [facility] 2022-11-21 2022-11-21 Emergency X OSIRIS [facility] ERT [id number] Univers 13:08:00 16:45:00 MANJU maradiaga [facility] 2022-11-21 2022-11-21 Emergency Zion Bridges [facility] 1.2.840. 114 [id number] Univers 13:08:00 16:45:00 Manju Newell 350.1.13. 10 [facility] 4.2.7.2.686 [facility] [id number] [place] [address] [place] 2022-11-18 2022-11-18 Outpatient [facility] [id number] Willis 10:08:00 10:08:00 0709 F Jeffery 2022-11-15 2022-11-15 Outpatient R JEREMY GREENE [facility] [id number] Univers 09:40:00 09:40:00 JEREMY GREENE [facility] 2022-11-09 2022-11-09 Outpatient [facility] [id number] Willis 15:26:18 15:26:18 0630 F Jeffery 2022-11-06 2022-11-06 Outpatient R JUAN [facility] [id number] Univers 13:00:00 13:00:00 VIJAY chino [facility] 2022-10-29 2022-10-29 Patient Jc [facility] 1..840.114 [id number] Univers 00:00:00 00:00:00 Secure Msg [facility] 350.1.13.10 ity of [place] 4.2.7.2.686 Martin as TOÑO?BLEA [phone] La dical MIKI 044 [facility] OFFICE [facility] 2022-10-29 2022-10-29 Patient Prasanna Vargas [facility] 1..348.019 [id number] Univers 00:00:00 00:00:00 Secure Msg Cam [facility] 350.1.13.10 ity [facility] 4.2.7.2.[place] [id number] La dical NAL 134 [facility] 2022-10-03 2022-10-03 Letter Gurjit Lim [facility] ..840.114 [id number] Univers 00:00:00 00:00:00 ([facility]) HEALTH 350.1.13.10 it y of [facility] 4.2.7.2.686 [place] TOÑO?BLEA [phone] La dicaliyah [place] 092 [facility] OFF[facility] 2022-10-02 2022-10-02 Outpatient R SHARMIN [facility] [id number] Univers 10:00:00 10:00:00 , CELINA magana [facility] 2022-10-01 2022-10-01 Outpatient R ARJUN [facility] [id number] Univers 09:40:00 09:40:00 REJI lechuga o f [facility] 2022-09-25 2022-09-25 Telephone Ponce [facility] 05.14.342.539 [id number] Univers 00:00:00 00:00:00 Rad [facility] 350.1.13.10 ity of [facility] 4.2.7.2.[place] [phone] La dicil NAL 059 [facility] 2022-09-21 2022-09-21 Outpatient R LEXY [facility] [id number] Univers 09:30:00 09:30:00 KSASANDRA lechuga [facility] 2022-09-21 2022-09-21 Letter [facility] 05.14.840.114 [id number] Univers 00:00:00 00:00:00 (Out) Kassandra HEALTH 350.1.13.10 it y of [place] 4.2.7.2.686 Martin as TOÑO?BLEA [id number] [address] OFFICE [facility] 2022-09-21 2022-09-21 Telephone [facility] 1.2.183.935 [id number] Univers 00:00:00 00:00:00 Kassandra HEALTH 350.1.13.10 it y of [place] 4.2.7.2.686 Martin as TOÑO?BLEA [id number] [address] 2022-09-21 2022-09-21 Telephone [facility] 1.2.872.166 [id number] Univers 00:00:00 00:00:00 Kassandra HEALTH 350.1.13.10 it y of [place] 4.2.7.2.686 Martin as TOÑO?BLEA [id number] [address] 2022-09-14 2022-09-14 [facility] [id number] Univers 09:30:00 09:30:00 KASSANDRA chino [facility] 2022-09-12 2022-09-12 [facility] 1..695.483 [id number] Univers 00:00:00 00:00:00 [employer] 350.1.13.10 it y of [place] 4.2.7.2.686 Martin as TOÑO?BLEA [id number] [address] OFFICE [facility] 2022-09-07 2022-09-07 Outpatient [facility] [id number] Univers 11:30:00 11:30:00 KASSANDRA [facility] 2022-09-05 2022-09-05 Emergency [id number] Univers 08:44:00 13:15:00 CYNISE chino [facility] 2022-09-05 2022-09-05 Emergency [facility] 1..727.931 [id number] Univers 08:44:00 13:15:00 Cynvanesa LAWSON 350.1.13.10 i ty of [place] 4.2.7.2.686 [facility] [id number] [address] 2022-09-04 2022-09-04 Telephone Lexy, [facility] 1.2.565.951 [id number] Univers 00:00:00 00:00:00 Kassandra HEALTH 350.1.13.10 it y of [place] 4.2.7.2.686 Martin as TOÑO?BLEA [id number] [address] OFFICE [facility] 2022-09-04 2022-09-04 Patient Serra, [facility] 1.2.840.114 [id number] Univers 00:00:00 00:00:00 Secure Msg Rad KayceePilarPauloPilar LULU 350.1.13.10 ity of [place] 4.2.[address] [facility] PROFESSIO [id number] La dical NAL 059 [facility] 2022-08-29 2022-08-29 Outpatient R SHARMIN [facility] [id number] Univers 09:00:00 09:00:00 , CELINA it y of [facility] 2022-08-14 2022-08-14 Patient Doctor [facility] 1.2.840.114 [id number] Univers 00:00:00 00:00:00 Secure Msg Unassigned, HEALTH 350.1.13.10 ity of [place] 4.2.7.2.686 Martin as TOÑO?BLEA [id number] La dic[address] OFFICE [facility] 2022-07-31 2022-07-31 Emergency X RIDDLE, [facility] ERT [id number] Univers 17:56:00 20:30:00 CHRISTCLARENCEER it y of [facility] 2022-07-31 2022-07-31 Emergency Elmira, [facility] 1.2.775.164 [id number] Univers 17:56:00 20:30:00 Manju LAWSON 350.1.13.10 ity of [facility] 4.2.7.2.686 [facility] [id number] [address] 2022-07-15 2022-07-15 Outpatient R [facility] [id number] Univers 09:46:45 23:59:00 CARI lechuga o f [facility] 2022-07-15 2022-07-15 [facility] 1.2.840.114 [id number] Univers 09:46:45 23:59:00 [facility] 350.1.13.10 ity of [facility] 4.2.7.2.686 [place] as TOÑO?BLEA [id number] [facility] [address] MEDICAL OFFICE [facility] 2022-07-15 2022-07-15 [facility] 1.2.840.114 [id number] Univers 09:46:45 23:59:00 Encounter Cari [facility] 350.1.13.10 ity of [facility] 4.2.7.2.686 [place] as TOÑO?BLEA [id number] [facility] [address] MEDICAL OFFICE [facility] 2022-07-15 2022-07-15 Urgent Cari Kaur [facility] 1.2.840 .114 [id number] Univers 09:20:00 10:29:17 Care Unknown, Attending HEALTH 350.1.13.10 ity of [facility] 4.2.7.2.686 [place] as TOÑO?BLEA [id number] [facility] [address] MEDICAL OFFICE [facility] 2022-07-15 2022-07-15 Orders Doctor JORDAN 1.2.840.114 [id number] Univers 00:00:00 00:00:00 Only Unassigned, YAZMIN 350.1.13.10 ity of [facility] 4.2.7.2.686 Martin as [id number] [facility] [address] 2022-06-23 2022-06-23 Outpatient R DANITA [facility] [id number] Univers 09:20:00 10:27:39 ROBERAYEMI ity of [facility] 2022-06-23 2022-06-23 Urgent RoberjaydaPaul shahid [facility] 1.2.840. 114 [id number] Univers 09:20:00 10:27:39 Care Unknown, Attending HEALTH 350.1.13.10 ity of [place] 4.2.7.2.686 [place] as TOÑO?BLEA [id number] La whit MARY [address] [place] [address] MEDICAL OFFICE BUILDING 2022-06-23 2022-06-23 Orders Doctor JORDAN 1.2.840.114 [id number] Univers 00:00:00 00:00:00 Only Unassigned, YAZMIN 350.1.13.10 ity of [place] [facility] 4.2.7.2.686 Martin as [id number] [facility] [address] 2022-06-15 2022-06-15 Outpatient R JC [facility] [id number] Univers 09:40:00 09:40:00 JEREMY [facility] 2022-05-29 2022-05-29 Outpatient Farzana [facility] [id number] Univers 08:00:00 08:00:00 [facility] 2022-05-15 2022-05-15 Outpatient Farzana MILLER [facility] [id number] Univers 09:20:00 09:20:00 BENNETT [facility] 2022-05-11 2022-05-11 Outpatient Farzana [facility] [id number] Univers 09:30:00 09:30:00 KASSANDRA [facility] 2022-05-05 2022-05-05 Emergency X ERROL, [facility] ERT [id number] Univers 12:26:00 16:11:00 KARON [facility] 2022-05-05 2022-05-05 Emergency [facility] 1.2.840.114 [id number] Univers 12:26:00 16:11:00 Karon LAWSON 350.1.13.10 i ty of [facility] 4.2.7.2.686 [place] [id number] [facility] [address] 2022-05-01 2022-05-01 Outpatient PRASANNA LOOMIS [facility] [id number] Univers 00:00:00 00:00:00 ity [facility] 2022-04-26 2022-04-26 Emergency X SINGER [facility] ERT [id number] Univers 08:30:00 09:59:00 ZION lechuga [facility] 2022-04-26 2022-04-26 Emergency [facility] 1.2.114.906 [id number] Univers 08:30:00 09:59:00 Zion LAWSON 350.1.13.10 i ty of [place] 4.2.7.2.686 [facility] [id number] [address] 2022-04-25 2022-04-[address] [facility] ERT [id number] Univers 18:23:00 21:55:00 CYNVANESA lechuga [facility] 2022-04-25 2022-04-25 Emergency [facility] 1.2.488.904 [id number] Univers 18:23:00 21:55:00 Kennedy LAWSON 350.1.13.10 i ty of [place] [address].2.7.2.686 [facility] [id number] [address] 2022-04-19 2022-04-19 Outpatient [facility] [id number] Univers 10:00:00 10:00:00 JEREMY ity [facility] 2022-04-12 2022-04-12 Telephone [facility] 1.2.543.336 [id number] Univers 00:00:00 00:00:00 GeoPage 350.1.13.10 it y of [place] 4.2.7.2.686 Martin as TOÑO?BLEA [id number] [address] OFFICE [facility] 2022-04-11 2022-04-11 Telephone [facility] 1.2.840.114 [id number] Univers 00:00:00 00:00:00 [employer]dimensional network logo [facility] 350.1.13.10 ity of [place] 4.2.7.2.686 Martin as TOÑO?BLEA [id number] [address] OFFICE [facility] 2022-04-10 2022-04-10 Telephone [facility] 1.2.340.705 [id number] Univers 00:00:00 00:00:00 GeoPage 350.1.13.10 it y of [place] 4.2.7.2.686 Martin as TOÑO?BLEA [id number] [address] OFFICE [facility] 2022-04-09 2022-04-09 Office [facility] 1.2.840.114 [id number] Univers 09:30:00 09:30:00 Visit [employer] 350.1.13.10 it y of [facility] 4.2.7.2.686 Martin as TOÑO?BLEA [id number] [address] OFFICE [facility] 2022-04-09 2022-04-09 Outpatient R LEXY [facility] [id number] Univers 09:30:00 09:21:44 KASSANDRA [facility] 2022-04-07 2022-04-07 [facility] [id number] Univers 13:41:00 17:49:00 OLAMIDE ankush [facility] 2022-04-07 2022-04-07 [facility] 1.2.402.217 [id number] Univers 13:41:00 17:49:00 Olamide Mosqueda [place] 350.1.13.10 ity of [place] 4.2.7.2.[address] [facility] [id number] [address] 2022-04-04 2022-04-04 Telephone [facility] 1.2.495.914 [id number] Univers 00:00:00 00:00:00 GeoPage 350.1.13.10 it y of [place] 4.2.7.2.686 Martin as TOÑO?BLEA [id number] [address] OFFICE [facility] 2022-04-02 2022-04-02 Outpatient R LEXY [facility] [id number] Univers 10:30:00 10:30:00 KASSANDRA [facility] 2022-03-28 2022-03-28 Patient Doctor [facility] 1.2.840.114 [id number] Univers 00:00:00 00:00:00 Secure Msg Unassigned, [facility] 350.1.13.10 ity of [place] 4.2.7.2.686 Martin as TOÑO?BLEA [id number] [address] 2022-03-24 2022-03-24 Emergency X PERLA, [facility] ERT [id number] Univers 07:35:00 13:11:00 KELLIE itchino [facility] 2022-03-24 2022-03-24 Emergency Perla, [facility] 1.2.353.612 [id number] Univers 07:35:00 13:11:00 Kellie LAWSON 350.1.13.10 ity of [place] 4.2.7.2.[address] [facility] [id number] [address] 2022-03-23 2022-03-23 Outpatient [facility] [id number] Univers 10:30:00 10:30:00 KASSANDRA lechuga [facility] 2022-03-23 2022-03-23 Telephone [facility] 1.2.840.114 [id number] Univers 00:00:00 00:00:00 [facility] 350.1.13.10 ity of [place] 4.2.7.2.686 Martin as TOÑO?BLEA [id number] [address] 2022-03-22 2022-03-22 Telephone [facility] 1.2.840.114 [id number] Univers 00:00:00 00:00:00 [facility] 350.1.13.10 ity of [place] 4.2.7.2.686 [place] as TOÑO?BLEA [id number] [address] 2022-03-22 2022-03-22 Refill [facility] 1.2.840.114 [id number] Univers 00:00:00 00:00:00 Darrion [employer] [facility] 350.1.13.10 ity of [facility] 4.2.7.2.686 [place] as TOÑO?BLEA [id number] [address] 2022-03-21 2022-03-21 Telephone [facility] 1.2.840.114 [id number] Univers 00:00:00 00:00:00 [facility] 350.1.13.10 ity of [facility] 4.2.7.2.686 [place] as TOÑO?BLEA [id number] La dicaliyah [place] 0[address] [facility] OFFICE [facility] 2022-03-15 2022-03-15 Outpatient R ARJUN [facility] [id number] Univers 14:00:00 14:36:19 REJI ity o f [facility] 2022-03-15 2022-03-15 Office [facility] 1.2.840.114 [id number] Univers 14:00:00 14:36:19 Visit Laithkarmaraheel LULU 350.1.13.10 ity of [facility] 4.2.7.2.686 [place] [id number] La dicaliyah NAL 059 [facility] 2022-03-15 2022-03-15 Emergency X BRYANNA [facility] ERT [id number] Univers 08:40:00 10:47:00 ANNA lechuga [facility] 2022-03-15 2022-03-15 Emergency [facility] 1.2.840.114 [id number] Univers 08:40:00 10:47:00 Anna LAWSON 350.1.13.10 i ty of [place] 4.2.7.2.686 [place] [id number] [address] 2022-03-14 2022-03-14 Outpatient R PRASANNA VARGAS [facility] [id number] Univers 10:30:00 10:30:00 ity of [facility] 2022-03-11 2022-03-11 Emergency X [facility] ERT [id number] Univers 09:22:00 12:15:00 SHINTA ity [facility] 2022-03-11 2022-03-11 Emergency [facility] 1.2.840.114 [id number] Univers 09:22:00 12:15:00 Angelica [facility] 350.1.13.10 i ty of [facility] 4.2.7.2.686 [place] [id number] [address] 2022-03-06 2022-03-06 Outpatient R LEXY [facility] [id number] Univers 08:30:00 08:30:00 KASSANDRA lechuga [facility] 2022-03-02 2022-03-02 Telephone Yoselin [facility] 1.2.840.114 [id number] Univers 00:00:00 00:00:00 [facility] 350.1.13.10 ity of [place] 4.2.7.2.686 [place] as TOÑO?BLEA [id number] La whit [address] MEDICAL OFFICE [facility] 2022-02-27 2022-02-27 Outpatient R LEXY [facility] [id number] Univers 09:30:00 09:49:42 KASSANDRA lechuga [facility] 2022-02-27 2022-02-27 Office [facility] 1.2.840.114 [id number] Univers 09:30:00 09:49:[address] [facility] 350.1.13.10 it y of [place] 4.2.7.2.686 [place] as TOÑO?BLEA [id number] La alessandra[address] OFFICE [facility] 2022-02-27 2022-02-27 Office Juan [facility] 1.2.840.114 [id number] Univers 08:00:00 09:12:17 Visit Formerly [facility] 350.1.13.10 it y of [place] 4.2.7.2.686 Martin as TOÑO?BLEA [id number] La whit [facility] 044 [facility] OFFICE [facility] 2022-02-26 2022-02-26 Outpatient R LEXY [facility] [id number] Univers 11:30:00 11:30:00 KASSANDRAAUGUSTO lechuga [facility] 2022-02-21 2022-02-21 Emergency X ALFONSO [facility] ERT [id number] Univers 01:20:00 03:44:00 MAGGIE lechuga [facility] 2022-02-21 2022-02-21 Emergency [facility] 1.2.840.114 [id number] Univers 01:20:00 03:44:00 Maggie LAWSON 350.1.13.10 ity of [place] 4.2.[address].2.[address] [facility] [id number] [address] 2022-02-19 2022-02-19 Patient Robb [facility] 1.2.840.114 [id number] Univers 00:00:00 00:00:00 Secure Msg Kendal Amaral [facility] 350.1.13.10 ity of [place] 4.2.7.2.686 Martin as TOÑO?BLEA [id number] [address] OFFICE [facility] 2022-02-19 2022-02-19 Patient Robb [facility] 1.2.840.114 [id number] Univers 00:00:00 00:00:00 Secure Mslaila Amaral [facility] 350.1.13.10 ity of [place] 4.2.7.2.686 Martin as TOÑO?BLEA [id number] [address] 2022-02-19 2022-02-19 Patient Suzette [facility] 1.2.755.574 [id number] Univers 00:00:00 00:00:00 Secure Msg Ade SAM 350.1.13.10 ity of [facility] 4.2.7.2.686 [place] [id number] [facility] [address] 2022 2022 Emergency X [facility] ERT [id number] Univers 11:58:00 15:13:00 MAGGIE [facility] 2022 2022 Emergency [facility] 1.2.840.114 [id number] Univers 11:58:00 15:13:00 Maggie LAWSON 350.1.13.10 ity of [place] 4.2.7.2.686 [facility] [id number] [facility] [address] 2022-02-09 2022-02-09 Outpatient R BRANDON [facility] [id number] Univers 09:00:00 09:00:00 CRICKET davis [facility] 2022-02-06 2022-02-06 Outpatient R JUAN [facility] [id number] Univers 10:00:00 10:00:00 VIJAY lechuga [facility] 2022-02-05 2022-02-05 Nurse Nurse, [facility] [id number] [id number] Univers 09:45:00 10:05:00 [facility] [id number] [place]y of [place] 4.2.7.2.686 [place] as TOÑO?BLEA [id number] La dical KNEY [address] MEDICAL OFFICE BUILDING 2022-02-05 2022-02-05 Outpatient R OLIVER [facility] [id number] Univers 09:20:00 09:20:00 FLACO lechuga o f [facility] 2022-01-26 2022-01-26 Case Prasanna Vargas [facility] [id number] Univers 00:00:00 00:00:00 Management Cam [place] [id number] [facility] [place] [id number] [facility] [address] [facility] 2022-01-22 2022-01-22 Outpatient R JUAN [facility] [id number] Univers 11:00:00 11:00:00 VIJAY lechuga [facility] 2022-01-18 2022-01-18 Emergency [facility] [id number] Univers 05:17:00 10:25:00 BERNARDO lechuga [facility] 2022-01-18 2022-01-18 Emergency Jayy Kennedy W TRAUMA 1.2.840.11 [id number] Univers 05:17:00 10:25:00 Bernardo Levy [facility] [id number] [place] [id number] [facility] [address] 2022-01-15 2022-01-15 Emergency X DANITA [facility] ERT [id number] Univers 08:34:00 10:49:00 MAURA lechuga [facility] 2022-01-15 2022-01-15 Emergency Larry Perez R [facility] 1.2.840.1 [id number] Univers 08:34:00 10:49:00 [facility] [id number] [facility] 4[place] [id number] [address] 2022-01-08 2022-01-08 Emergency X GABRIELA, [facility] ERT [id number] Univers 18:04:00 20:09:00 HUMBERTO [facility] 2022-01-08 2022-01-08 Emergency Gabriela, [facility] 1.2.840.114 [id number] Univers 18:04:00 20:09:00 Humberto LAWSON 350.1.13.10 i [facility] [id number] [id number] [address] 2021-12-12 2021-12-12 Outpatient R [facility] [facility] [id number] Univers 13:30:00 13:40:[facility] 2021-[facility]-12 2021-12-12 Office Prasanna Vargas [facility] 1.2.840.114 [id number] Univers 13:30:00 13:40:21 Visit [facility]10 [facility] 4.2.7.2.686 [facility] [phone] La dical [address] 2021-12-12 2021-12-12 Outpatient Farzana CARNES [facility] [id number] Univers 13:30:00 13:40:21 [facility] 2021-12-12 2021-12-12 Outpatient R DEYVI [facility] [id number] Univers 13:30:00 13:40:21 [facility] 2021-12-11 2021-12-11 Outpatient R SUZETTE [facility] [id number] Univers 16:15:00 16:15:00 ADE [facility] 2021-12-05 2021-12-05 Outpatient R LYSSA [facility] [id number] Univers 14:15:00 14:15:00 ROMULO [facility] 2021-11-28 2021-11-28 Emergency X NORTON, [facility] ERT [id number] Univers 08:49:00 11:02:00 KARON [facility] 2021-11-28 2021-11-28 Emergency [facility] 1.2.840.114 [id number] Univers 08:49:00 11:02:00 Karon LAWSON 350.1.13.10 i ty of [place] 4.2.7.2.686 [facility] [id number] [address] 2021-11-24 2021-11-24 Emergency X DEV, K [facility] ERT [id number] Univers 18:14:00 21:04:00 ity of [facility] 2021-11-24 2021-11-24 Emergency Kaycee Méndez [facility] 1.2.840.114 [id number] Univers 18:14:00 21:04:00 Sharlene LAWSON 350.1.13.10 i ty of [place] 4.2.7.2.686 [facility] [id number] [address] 2021-11-24 2021-11-24 Telephone [facility] 1.2.840.114 [id number] Univers 00:00:00 00:00:00 Cricket Lopez DIALYSIS CLINICAL MANAGER 350.1.13.10 ity [facility] 4.2.7.2.686 [place] as MATERNAL [phone] Med ical & CHILD 107 [facility] 2021-11-20 2021-11-20 Patient [facility] 1.2.840.114 [id number] Univers 00:00:00 00:00:00 Secure [facility] 350.1.13.10 ity [facility] 4.2.7.2.686 [place] as TOÑO?BLEA [phone] [address] MEDICAL OFFICE BUILDING 2021-11-19 2021-11-19 Letter JORDAN Santacruz 1.2.840.114 [id number] Univers 00:00:00 00:00:00 (Out) Leslie ARCE 350.1.13.10 it y of [facility] 4.2.7.2.686 Martin as [id number] [address] 2021-11-18 2021-11-18 Outpatient R OLIVER [facility] [id number] Univers 10:41:40 23:59:00 FLACO lechuga o f [facility] 2021-11-18 2021-11-18 Hospital [facility] 1.2.083.455 [id number] Univers 10:41:40 23:59:00 Encounter Flaco HEALTH 350.1.13.10 ity of [place] 4.2.7.2.686 Martin as TOÑO?BLEA [phone] Me whit [place] [address] [facility] OFFICE [facility] 2021-11-18 2021-11-18 Urgent [facility] 1.2.840.114 [id number] Univers 10:20:00 10:53:20 Care [facility] 350.1.13.10 i ty of [place] 4.2.7.2.686 Martin as TOÑO?BLEA [id number] La whit [facility] 370 [facility] 2021-11-09 2021-11-09 Outpatient Farzana MIXON [facility] [id number] Univers 10:30:00 10:30:00 CELINA lechuga [facility] 2021-10-25 2021-10-25 Urgent Ileana Medrano [facility] 1..840.114 [id number] Univers 13:20:00 13:20:00 Care Oliver [facility] 350.1.13.10 ity of [place] 4.2.7.2.686 Martin as TOÑO?BLEA [id number] La whit [facility] 370 [facility] 2021-10-25 2021-10-25 Outpatient Farzana MEDRANO [facility] [id number] Univers 13:20:00 12:47:59 ILEANA lechuga [facility] 2021-10-25 2021-10-25 Patient [facility] 1.2.840.114 [id number] Univers 00:00:00 00:00:00 [facility] 350.1.13.10 ity of [place] 4.2.7.2.686 Martin as TOÑO?BLEA [id number] La whit [place] [address] [facility] OFFICE [facility] 2021-10-25 2021-10-25 Telephone Juan [facility] 1.2.703.929 [id number] Univers 00:00:00 00:00:00 Vijay HEALTH 350.1.13.10 it y of [place] 4.2.7.2.686 Martin as TOÑO?BLEA [phone] La whit [place] [address] [place] MEDICAL OFFICE [facility] 2021-10-25 2021-10-25 Telephone Provider, [facility] 1.2.840.114 [id number] Univers 00:00:00 00:00:00 Ang Db HEALTH 350.1.13.10 it y of Urgent Care [place] 4.2.7.2.686 [place] TOÑO?BLEA [phone] La whit [place] [address] [facility] OFFICE [facility] 2021-10-25 2021-10-25 Telephone Nurse, [facility] 1.2.840.114 [id number] Univers 00:00:00 00:00:00 Db Urgent HEALTH 350.1.13.10 ity of Care [place] 4.2.7.2.686 Martin as TOÑO?BLEA [id number] La alessandra[address] OFFICE [facility] 2021-10-24 2021-10-24 Outpatient Farzana OMALLEY [facility] [id number] Univers 10:15:00 10:15:00 [facility] 2021-10-24 2021-10-24 Outpatient Farzana OMALLEY [facility] [id number] Univers 10:15:00 10:15:00 ROMULO [facility] 2021-10-11 2021-10-11 Outpatient Farzana OMALLEY [facility] [id number] Univers 09:30:00 09:30:00 ROMULO [facility] 2021-10-10 2021-10-10 Outpatient PRASANNA LOOMIS [facility] [id number] Univers 13:30:00 13:30:00 ity [facility] 2021-10-10 2021-10-10 Outpatient PRASANNA LOOMIS [facility] [id number] Univers 13:30:00 13:30:00 ity [facility] 2021-10-10 2021-10-10 Outpatient PRASANNA LOOMIS [facility] [id number] Univers 13:30:00 13:30:00 ity [facility] 2021-10-102021-10-10 Outpatient PRASANNA LOOMIS [facility] [id number] Univers 13:30:00 13:30:00 ity of [facility] 2021-10-10 2021-10-10 Outpatient R PRASANNA VARGAS [facility] [id number] Univers 13:30:00 13:30:00 ity of [facility] 2021-10-10 2021-10-10 [facility] [id number] Univers 13:30:00 13:30:00 ity of [facility] 2021-10-10 2021-10-10 Outpatient R [facility] [id number] Univers 13:30:00 13:30:00 ity of [facility] 2021-10-05 2021-10-05 Patient Robb [facility] 1.2.840.114 [id number] Univers 00:00:00 00:00:00 Secure Msg Kendal Amaral HEALTH 350.1.13.10 ity of [place] 4.2.7.2.686 [place] as TOÑO?BLEA [phone] [address] OFFICE [facility] 2021-10-05 2021-10-05 Patient Robb [facility] 1.2.840.114 [id number] Univers 00:00:00 00:00:00 Secure Msg Kendal Amaral HEALTH 350.1.13.10 ity of [place] 4.2.7.2.686 [place] as TOÑO?BLEA [id number] [address] OFFICE [facility] 2021-10-04 2021-10-04 Pre Visit HILARIO Rodriguez 1.2.592.115 [id number] Univers 00:00:00 00:00:00 Outreach Melia TELLO 350.1.13.10 [place] [phone] [address] 2021-09-28 2021-09-28 Office Apurva [facility] 1.2.840.114 [id number] Univers 13:30:00 13:45:00 Visit Celina SAM 350.1.13.10 it[place] of [place].2.[place] [id number] [address] 2021-09-28 2021-09-28 Outpatient R APURVA [facility] [id number] Univers 13:30:00 13:30:00 CELINA [facility] 2021-09-28 2021-09-28 Outpatient R APURVA [facility] [id number] Univers 13:30:00 13:30:00 CELINA [facility] 2021-09-28 2021-09-28 [facility] 1.2.840.114 [id number] Univers 00:00:00 00:00:00 Secure Msg Celina SAM 350.1.13.10 [facility] [place].7.2.686 [place] [phone] [address] 2021-09-27 2021-09-27 Outpatient R DEYVI [facility] [id number] Univers 14:00:00 14:00:00 TETO [facility] 2021-09-27 2021-09-27 [facility] [id number] Univers 09:30:00 09:30:00 [facility] 2021-09-27 2021-09-27 Outpatient R ADITI, [facility] [id number] Univers 09:30:00 09:30:00 [facility] 2021-09-27 2021-09-27 Outpatient R ADITI [facility] [id number] Univers 09:30:00 09:30:00 [facility] 2021-09-26 2021-09-26 Outpatient R AKINSIPE, [facility] [id number] Univers 10:45:00 10:45:00 CRICKET ity o [facility] 2021-09-26 2021-09-26 Outpatient R AKINSIPE, [facility] [id number] Univers 10:45:00 10:45:00 CRICKET ity o [facility] 2021-09-26 2021-09-26 [facility] 1.2.840.114 [id number] Univers 00:00:00 00:00:00 Secure [facility] 350.1.13.10 ity of [place] 4.2.7.2.686 [place] as TOÑO?BLEA [phone] [facility] [address] [facility] OFFICE [facility] 2021-09-26 2021-09-26 Patient Juan [facility] 1.2.840.114 [id number] Univers 00:00:00 00:00:00 Secure [facility] 350.1.13.10 ity of [place] 4.2.7.2.686 [place] as TOÑO?BLEA [phone] [facility] 044 [facility] 2021-09-25 2021-09-25 Urgent Flaco Boyd [facility] 1.2.840. 114 [id number] Univers 10:20:00 11:10:42 Care [facility] 350.1.13.10 ity of [place] 4.2.7.2.686 [place] as TOÑO?BLEA [id number] [address] 2021-09-25 2021-09-25 [facility] [id number] Univers 10:20:00 11:10:42 FLACO fitzpatrick [facility] 2021-09-25 2021-09-25 Out[facility] [id number] Univers 10:20:00 10:20:00 [facility] ankush o [facility] 2021-09-25 2021-09-25 Outpatient R PRASANNA VARGAS [facility] [id number] Univers 10:00:00 10:00:00 ity of [facility] 2021-09-25 2021-09-25 Telephone [facility] .2.840.114 [id number] Univers 00:00:00 00:00:00 [facility] 350.1.13.10 i ty of [place] 4.2.7.2.686 [place] as TOÑO?BLEA [id number] [address] 2021-09-25 2021-09-25 Patient Prasanna Vargas [facility] 1.2.681.988 [id number] Univers 00:00:00 00:00:00 Secure Msg Cam [place] 350.1.13.10 ity [facility] 4.2.7.2.686 [place] [phone] La dical NAL 134 [facility] 2021-09-25 2021-09-25 Telephone Sushmagracie [facility] 1.2.840.114 [id number] Univers 00:00:00 00:00:00 Cricket Lopez DIALYSIS CLINICAL MANAGER 350.1.13.10 ity of [facility] 4.2.7.2.686 [place] as MATERNAL [phone] Med ical & CHILD 107 [facility] 2021-09-25 2021-09-25 Telephone Apurva [facility] 1.2.386.150 [id number] Univers 00:00:00 00:00:00 Celina Cannon FLACO 350.1.13.10 ity of [facility] 4.[place].7.2.686 [place] [phone] [address] 2021-09-15 2021-09-15 Patient Robb [facility] 1.2.840.114 [id number] Univers 00:00:00 00:00:00 Secure Msg Kendal M HEALTH 350.1.13.10 [facility] 4.2.7.2.686 [place] as TOÑO?BLEA [phone] La dicaliyah EY [address] [place] MEDICAL OFFICE [facility] 2021-09-15 2021-09-15 Patient Robb [facility] 1.2.840.114 [id number] Univers 00:00:00 00:00:00 Secure Msg Kendal M HEALTH 350.1.13.10 ity of [place] 4.2.7.2.686 [place] as TOÑO?BLEA [id number] La dical EY [address] [facility] OFFICE [facility] 2021-09-15 2021-09-15 Patient Robb [facility] 1.2.840.114 [id number] Univers 00:00:00 00:00:00 Secure Msg Kendal M HEALTH 350.1.13.10 ity of [place] 4.2.7.2.686 [place] TOÑO?BLEA [phone] La dical EY [address] [place] [address] OFFICE [facility] 2021-09-14 2021-09-14 Patient Juan [facility] 1.2.840.114 [id number] Univers 00:00:00 00:00:00 Secure Msg Vijay HEALTH 350.1.13.10 ity of [place] 4.2.7.2.686 [place] as TOÑO?BLEA [phone] La alessandra[address] OFFICE [facility] 2021-09-12 2021-09-12 Outpatient Farzana MIXON [facility] [id number] Univers 10:30:00 10:30:00 CELINA lechuga [facility] 2021-09-12 2021-09-12 Outpatient Farzana MIXON [facility] [id number] Univers 10:30:00 10:30:00 CEILNA chino [facility] 2021-09-12 2021-09-12 Patient Meet [facility] 1.2.840.114 [id number] Univers 00:00:00 00:00:00 Secure Msg Daniel CRAIG 350.1.13.10 ity of [place] [phone] [facility] AND QUINTER [address] [place] [facility] 2021-09-12 2021-09-12 Orders Doctor JORDAN 1.2.840.114 [id number] Univers 00:00:00 00:00:00 Only Unassigned, YAZMIN 350.1.13.10 ity of [place] [facility] 4.2.7.2.686 Martin as [id number] [facility] [address] 2021-09-12 2021-09-12 Patient Juan [facility] 1.2.840.114 [id number] Univers 00:00:00 00:00:00 Secure Msg Vijay HEALTH 350.1.13.10 ity of [place] 4.2.7.2.686 [place] as TOÑO?BLEA [id number] La whit [place] [address] [place] [address] OFFICE [facility] 2021-09-05 2021-09-05 Patient Juan [facility] 1.2.840.114 [id number] Univers 00:00:00 00:00:00 Secure Msg Vijay HEALTH 350.1.13.10 ity of [place] 4.2.7.2.686 [place] as TOÑO?BLEA [id number] Me dical KNEY [address] [place] MEDICAL OFFICE BUILDING 2021-09-04 2021-09-04 Patient Juan [facility] 1.2.840.114 [id number] Univers 00:00:00 00:00:00 Secure Msg Vijay HEALTH 350.1.13.10 ity of [place] 4.2.7.2.686 [place] as TOÑO?BLEA [phone] Me dical KNEY [address] [place] MEDICAL OFFICE BUILDING 2021-08-25 2021-08-25 Telephone Aditi [facility] 1.2.840.114 [id number] Univers 00:00:00 00:00:00 Dania L HEALTH 350.1.13.10 it y of [place] 4.2.7.2.686 [place] TOÑO?BLEA [phone] Me dical KNEY [address] [facility] OFFICE [facility] 2021-08-25 2021-08-25 Patient Juan [facility] 1.2.840.114 [id number] Univers 00:00:00 00:00:00 Secure Msg Vijay HEALTH 350.1.13.10 ity of [place] 4.2.7.2.686 [place] as OTÑO?BLEA [phone] La dical KNEY [address] [facility] OFFICE [facility] 2021-08-24 2021-08-24 Telephone Juan [facility] 1.2.466.645 [id number] Univers 00:00:00 00:00:00 Vijay HEALTH 350.1.13.10 it y of [place] 4.2.7.2.686 [place] TOÑO?BLEA [id number] Me dical IVÁNEY [address] [place] MEDICAL OFFICE BUILDING 2021-08-24 2021-08-24 Patient Juan [facility] 1.2.840.114 [id number] Univers 00:00:00 00:00:00 Secure Msg Vijay HEALTH 350.1.13.10 ity of [place] 4.2.7.2.686 [place] as TOÑO?BLEA [phone] La dical KNMARY [address] [place] MEDICAL OFFICE [facility] 2021-08-23 2021-08-23 Patient [facility] 1.2.840.114 [id number] Univers 00:00:00 00:00:00 Secure Msg Vijay HEALTH 350.1.13.10 ity of [place] 4.2.7.2.686 [place] as TOÑO?BLEA [phone] La whit [place] [address] [place] [address] OFFICE [facility] 2021-08-23 2021-08-23 Telephone [facility] 1.2.179.659 [id number] Univers 00:00:00 00:00:00 Vijay HEALTH 350.1.13.10 it y of [place] 4.2.7.2.686 [place] as TOÑO?BLEA [id number] [facility] OC[address]IO[address] OFFICE [facility] 2021-08-22 2021-08-22 Telephone [facility] 1.2.504.607 [id number] Univers 00:00:00 00:00:00 Vijay HEALTH 350.1.13.10 it y of [place] 4.2.7.2.686 [place] as TOÑO?BLEA [id number] [facility] OCASIO[address] OFFICE [facility] 2021-08-22 2021-08-22 Patient [facility] 1.2.840.114 [id number] Univers 00:00:00 00:00:00 Secure Msg Hallie HEALTH 350.1.13.10 ity of [place] 4.2.7.2.686 [place] as TOÑO?BLEA [phone] [facility] [address] OFFICE [facility] 2021-08-18 2021-08-18 Telephone [facility] 1.2.751.791 [id number] Univers 00:00:00 00:00:00 Vijay HEALTH 350.1.13.10 it y of [place] 4.2.7.2.686 [place] as TOÑO?BLEA [phone] [facility] IVÁN[address] OFFICE [facility] 2021-08-17 2021-08-17 Outpatient Farzana MIXON [facility] [id number] Univers 09:00:00 09:00:00 CELINA lechuga [facility] 2021-08-17 2021-08-17 Outpatient Farzana MIXON [facility] [id number] Univers 09:00:00 09:00:00 CELINA ity [facility] 2021-08-16 2021-08-16 Patient Juan [facility] 1.2.840.114 [id number] Univers 00:00:00 00:00:00 Secure Msg Vijay PETTY 350.1.13.10 [facility]y [facility] 4.2.7.2.686 [place] as TOÑO?BLEA [id number] La alessandraaliyah MIKI [address] [facility] OFFICE [facility] 2021-08-15 2021-08-15 Office [facility] 1.2.840.114 [id number] Univers 15:30:00 16:16:42 Visit Adán [facility] 350.1.13.10 it y of [place] 4.2.7.2.686 [place] as TOÑO?BLEA [phone] La alessandraaliyah IVÁNMARY [address] [facility] OFFICE [facility] 2021-08-15 2021-08-15 [facility] [id number] Univers 15:30:00 16:16:42 [facility] 2021-08-15 2021-08-15 Outpatient Farzana KIM [facility] [id number] Univers 15:30:00 15:30:00 [facility] 2021-08-15 2021-08-15 [facility] [id number] Univers 15:30:00 15:30:00 [facility] 2021-08-15 2021-08-15 [facility]patient [facility] [id number] Univers 15:30:00 15:30:00 [facility] 2021-08-15 2021-08-15 Emergency Aj [facility] ERT [id number] Univers 09:27:00 12:26:00 [facility] 2021-08-15 2021-08-15 [facility] 1.2.632.293 [id number] Univers 09:27:00 12:26:00 Maura LAWSON 350.1.13.10 ity of [place] 4.2.7.2.686 [facility] [id number] [address] 2021-08-15 2021-08-15 Emergency X [facility] ERT [id number] Univers 09:27:00 12:26:00 MAURA lechuga [facility] 2021-08-14 2021-08-14 Outpatient R JUAN [facility] [id number] Univers 13:25:00 23:59:00 VIJAY lechuga [facility] 2021-08-14 2021-08-14 Outpatient R JUAN [facility] [id number] Univers 13:25:00 23:59:00 VIJAY lechuga [facility] 2021-08-14 2021-08-14 Outpatient R JUAN [facility] [id number] Univers 13:25:00 13:25:00 VIJAY lechuga [facility] 2021-08-14 2021-08-14 Outpatient R JUAN [facility] [id number] Univers 12:19:07 13:24:00 VIJAY lechuga [facility] 2021-08-14 2021-08-14 Outpatient R JUAN [facility] [id number] Univers 12:19:07 13:24:00 VIJAY lechuga [facility] 2021-08-14 2021-08-14 [employer], Ang - [facility] 1.2.840.1 14 [id number] Univers 12:30:00 13:01:24 Visit Vijay Martinez 350.1.13.10 ity of [place] 4.2.7.2.686 [place] as TOÑO?BLEA [id number] [address] OFFICE [facility] 2021-08-14 2021-08-14 [employer] [facility], Ang - Db [facility] 1.2.840.1 14 [id number] Univers 12:30:00 12:45:00 Visit Vijay Martinez 350.1.13.10 ity of [place] 4.2.7.2.686 [place] as TOÑO?BLEA [id number] [address] OFFICE [facility] 2021-08-14 2021-08-14 Office Víctorkassandra [facility] 1.2.840.114 [id number] Univers 11:30:00 12:31:12 Visit Vijay PETTY 350.1.13.10 it y of [place] 4.2.7.2.686 [place] as TOÑO?BLEA [id number] Me dicaliyah [place] [address] [place] MEDICAL OFFICE [facility] 2021-08-14 2021-08-14 Outpatient R JUAN [facility] [id number] Univers 11:30:00 12:31:12 VIJAY ankush [facility] 2021-08-14 2021-08-14 Patient [facility] [id number] [id number] Univers 00:00:00 00:00:00 Secure Msg Vijay HEALTH 350.1.13.10 ity of [place] 4.2.7.2.686 Martin as TOÑO?BLEA [id number] Me whit [place] 0[address] [facility] 2021-08-09 2021-08-09 Outpatient R JUDY [facility] [id number] Univers 14:45:00 14:45:00 ADÁN [facility] 2021-08-09 2021-08-09 Telephone [facility] [id number] Univers 00:00:00 00:00:00 Vijay HEALTH 350.1.13.10 it y of [place] [id number] Martin as TOÑO?BLEA [id number] Me whit [place] 044 [facility] 2021-08-08 2021-08-08 Outpatient R JUAN [facility] [id number] Univers 11:30:00 23:59:00 VIJAY lechuga [facility] 2021-08-08 2021-08-08 Hospital [facility] [id number] Univers 11:30:00 23:59:00 Encounter Vijay HEALTH 350.1.13.10 ity [facility] [id number] Martin as TOÑO?BLEA [id number] Me whit [place] 808 [facility] OFFICE [facility] 2021-08-08 2021-08-08 Outpatient R JUAN [facility] [id number] Univers 11:15:00 11:15:00 VIJAY lechuga [facility] 2021-08-08 2021-08-08 Outpatient R JUAN [facility] [id number] Univers 11:00:00 11:00:00 VIJAY lechuga [facility] 2021-08-08 2021-08-08 Patient Doctor JORDAN [id number] Univers 00:00:00 00:00:00 Secure Msg UnassignedYAZMIN 350.1.13.10 ity of [facility] [id number] Martin as [id number] [address] 2021-08-07 2021-08-07 Office Juan [facility] [id number] [id number] Univers 09:30:00 10:23:21 Visit Vijay PETTY 350.1.13.10 it y of [place] 4.2.7.2.686 Martin as TOÑO?BLEA [id number] [address] OFFICE [facility] 2021-08-07 2021-08-07 Outpatient R JUAN [facility] [id number] Univers 09:30:00 10:23:21 VIJAY lechuga [facility] 2021-08-07 2021-08-07 Outpatient R JUAN [facility] [id number] Univers 09:30:00 09:30:00 VIJAY lechuga [facility] 2021-08-07 2021-08-07 [facility] 1.2.840.114 [id number] Univers 00:00:00 00:00:00 Secure Msg Vijay HEALTH 350.1.13.10 ity of [place] 4.2.7.2.686 [place] as TOÑO?BLEA [phone] [address] OFFICE [facility] 2021-08-07 2021-08-07 Patient Juan [facility] 1.2.840.114 [id number] Univers 00:00:00 00:00:00 Secure Msg Vijay HEALTH 350.1.13.10 ity of [facility] 4.2.7.2.686 [place] TOÑO?BLEA [phone] [address] OFFICE [facility] 2021-08-07 2021-08-07 Patient Apurva [facility] 1.2.840.114 [id number] Univers 00:00:00 00:00:00 Secure Msg Celina A FLACO 350.1.13.10 ity of [facility] [place].2.[place] [phone] [address] 2021-08-04 2021-08-04 Outpatient R SHADIA [facility] [id number] Univers 10:00:00 10:00:00 PETRA ity [facility] 2021-08-04 2021-08-04 Patient Juan [facility] 1.2.840.114 [id number] Univers 00:00:00 00:00:00 Secure Msg Vijay HEALTH 350.1.13.10 ity of [place] 4.2.7.2.686 [place] as TOÑO?BLEA [phone] La whit [place] [address] [place] [address] MEDICAL OFFICE BUILDING 2021-08-03 2021-08-03 Office JITENDRA Diaz 1..840.114 [id number] Univers 11:00:00 12:48:43 Visit Jayy Y 350.1.13.10 it y of [facility] 4.2.7.2.686 Martin as BANK [phone] [facility]. [address] [place] [address] 2021-08-03 2021-08-03 [facility] [id number] Univers 11:00:00 12:48:43 JAYY ity [facility] 2021-08-03 2021-08-03 Out[facility] [id number] Univers 11:00:00 11:00:00 JAYY ity [facility] 2021-08-03 2021-08-03 Patient Apurva [facility] 1.2.840.114 [id number] Univers 00:00:00 00:00:00 Secure Msg Celina A FLACO 350.1.13.10 ity of [facility] [place].2.[place] [id number] [address] 2021-08-02 2021-08-02 Telephone [facility] 1.2.357.375 [id number] Univers 00:00:00 00:00:00 Vijay HEALTH 350.1.13.10 it y [facility] 4.2.7.2.686 [place] TOÑO?BLEA [phone] Me dical [address] MEDICAL OFFICE [facility] 2021-07-21 2021-07-21 Outpatient R YOSELINDARRION [facility] [id number] Univers 08:00:00 08:52:53 YOSELINDARRION [facility] 2021-07-17 2021-07-17 Outpatient R JUAN [facility] [id number] Univers 11:30:00 11:30:00 VIJAY chino [facility] 2021-06-19 2021-06-19 Telephone [facility] 1.2.481.027 [id number] Univers 00:00:00 00:00:00 Formerly [facility] 350.1.13.10 it y of [place] 4.2.7.2.686 Martni as TOÑO?BLEA [phone] [address] OFFICE [facility] 2021-06-09 2021-06-09 Telephone [facility] 1.2.281.164 [id number] Univers 00:00:00 00:00:00 Reji [place] 350.1.13.10 ity [facility] [place].2.7.2.[place] [id number] [place] 646179 [facility] 2021-06-06 2021-06-06 Outpatient R DEYVI [facility] [id number] Univers 11:15:00 11:15:00 TETO [facility] 2021-06-06 2021-06-06 Outpatient R DEYVI [facility] [id number] Univers 11:15:00 11:15:00 TETO [facility] 2021-06-02 2021-06-02 Outpatient R CRISTINA [facility] [id number] Univers 15:45:00 15:45:00 WONDIFUL itchino o f [facility] 2021-05-31 2021-05-31 Outpatient R JUAN [facility] [id number] Univers 10:00:00 10:46:31 VIJAY lechuga [facility] 2021-05-31 2021-05-31 Office [facility] 1.2.840.114 [id number] Univers 10:00:00 10:46:31 Visit Vijay HEALTH 350.1.13.10 it y of [place] 4.2.7.2.686 [place] TOÑO?BLEA [id number] [address] OFFICE [facility] 2021-05-31 2021-05-31 Outpatient R JUAN [facility] [id number] Univers 10:00:00 10:46:31 VIJAY ity of [facility] 2021-05-31 2021-05-31 Orders Doctor JORDAN 1.2.840.114 [id number] Univers 00:00:00 00:00:00 Only Unassigned, YAZMIN 350.1.13.10 ity of [place] [facility] 4.2.7.2.686 [place] as [id number] [address] 2021-05-26 2021-05-26 Telephone [facility] 1.2.099.546 [id number] Univers 00:00:00 00:00:00 Skylar A HEALTH 350.1.13.10 i ty of [place] 4.2.7.2.686 [place] as TOÑO?BLEA [phone] [address] OFFICE [facility] 2021-05-26 2021-05-26 Patient Prasanna Vargas [facility] 1.2.586.397 [id number] Univers 00:00:00 00:00:00 Secure Msg Cam LULU 350.1.13.10 ity of [place].2.7.2.[place] [id number] [address] 2021-05-25 2021-05-25 Telemedici [facility] 1.2.840.114 [id number] Univers 14:00:00 14:30:00 ne Visit Skylar A HEALTH 350.1.13.10 ity of [place] 4.2.7.2.686 [place] as TOÑO?BLEA [id number] [address] OFFICE [facility] 2021-05-25 2021-05-25 Outpatient R YANELI [facility] [id number] Univers 14:00:00 14:00:00 SKYLAR ity of [facility] 2021-05-25 2021-05-25 Out[facility] [id number] Univers 14:00:00 14:00:00 SKYLAR ity [facility] 2021-05-24 2021-05-24 Telephone Ponce [facility] 1.2.976.459 [id number] Univers 00:00:00 00:00:00 Rad LAWSON 350.1.13.10 ity of [place]2.7.2.[place] [id number] La dical NAL 059 [facility] 2021-05-23 2021-05-23 Outpatient R [facility] [id number] Univers 10:00:00 10:00:00 ity [facility] 2021-05-23 2021-05-23 Outpatient R [facility] [id number] Univers 10:00:00 10:00:00 [facility] 2021-05-16 2021-05-16 [facility] [id number] Univers 09:00:00 09:00:00 TETO [facility] 2021-05-12 2021-05-12 Orders Doctor JORDAN 1.2.840.114 [id number] Univers 00:00:00 00:00:00 Only Unassigned, YAZMIN 350.1.13.10 [facility] 4.2.7.2.686 [place] as [id number] [address] 2021-05-10 2021-05-10 Outpatient [facility] [id number] Univers 13:00:00 13:00:00 WONDIFUL ity o f [facility] 2021-05-10 2021-05-10 Outpatient [facility] [id number] Univers 13:00:00 13:00:00 WONDIFUL ity o f [facility] 2021-05-09 2021-05-09 Telephone Prasanna Vargas [facility] 1.2.840.114 [id number] Univers 00:00:00 00:00:00 Jm LAW[place] 350.1.13.10 i ty [facility] [place] [phone] La dical NAL 134 [facility] 2021-05-09 2021-05-09 Patient Ponce, [facility] 1.2.840.114 [id number] Univers 00:00:00 00:00:00 Secure Msg Rad LAWSON 350.1.13.10 ity [facility] 4.2.7.2.[place] [id number] La dical NAL 059 [facility] 2021-05-08 2021-05-08 Outpatient R YASMEEN [facility] [id number] Univers 16:00:00 16:00:00 JE ity [facility] 2021-05-08 2021-05-08 Outpatient R [facility] [id number] Univers 16:00:00 16:00:00 JE itchino [facility] 2021-05-08 2021-05-08 Patient [facility] 1.2.840.114 [id number] Univers 00:00:00 00:00:00 Secure Msg Rad LAWSON 350.1.13.10 ity of [place]2.7.2.[place] [id number] La dical NAL 059 [facility] 2021-05-08 2021-05-08 Patient [facility] 1.2.840.114 [id number] Univers 00:00:00 00:00:00 Secure Msg Rad LAWSON 350.1.13.10 ity [facility] 4.2.7.2.[place] [phone] La dical NAL 059 [facility] 2021-05-03 2021-05-03 Outpatient R ARJUN [facility] [id number] Univers 11:15:36 23:59:00 REJI lechuga o f [facility] 2021-05-03 2021-05-03 [facility] 1.2.840.114 [id number] Univers 11:15:36 23:59:00 Encounter Reji LAWSON 350.1.13.10 ity of [facility] 4.2.7.2.[place] [id number] La dical NAL 846 [facility] 2021-05-03 2021-05-03 Telephone [facility] 1.2.840.114 [id number] Univers 00:00:00 00:00:00 Wondiful A HEALTH 350.1.13.10 ity of [place] 4.2.7.2.686 [place] as TOÑO?BLEA [phone] [address] OFFICE [facility] 2021-05-02 2021-05-02 Telephone [facility] 1.2.190.416 [id number] Univers 00:00:00 00:00:00 Sendil [facility] [place] 350.1.13.10 ity of [place].7.2.[place] [phone] [address] 2021-05-02 2021-05-02 Patient [facility] 1.2.840.114 [id number] Univers 00:00:00 00:00:00 Secure Msg Wondiful A HEALTH 350.1.13.10 ity of [place] 4.2.7.2.686 [place] as TOÑO?BLEA [id number] [address] 2021-05-02 2021-05-02 Telephone [facility] 1.2.840.114 [id number] Univers 00:00:00 00:00:00 Wondiful A HEALTH 350.1.13.10 ity of [place] 4.2.7.2.686 [place] as TOÑO?BLEA [id number] [address] OFFICE [facility] 2021-05-02 2021-05-02 [facility] 1.2.840.114 [id number] Univers 00:00:00 00:00:00 Secure Msg Sendil [facility] [place] 350.1.13.10 ity of [place] 4.2.7.2.[place] [id number] [address] 2021-04-27 2021-04-27 Emergency X [facility] ERT [id number] Univers 14:24:00 15:49:00 MAGGIE lechuga of [facility] 2021-04-27 2021-04-27 Emergency [facility] 1.2.840.114 [id number] Univers 14:24:00 15:49:00 Maggie LAWSON 350.1.13.10 ity of [place] 4.2.7.2.686 [facility] [phone] [facility] [address] [place] 2021-04-27 2021-04-27 Laboratory Only, Ang Db Test [facility] 1.2.8 40.114 [id number] Univers 11:15:00 11:30:00 Only Unknown, Attending HEALTH 350.1.13.10 ity of Thony Johnson [place] 4.2.7.2.686 [place] TOÑO?BLEA [phone] La whit [facility] [address] [place] MEDICAL OFFICE BUILDING 2021-04-27 2021-04-27 Outpatient R SIL [facility] [id number] Univers 11:15:00 11:15:00 THONY ity of [facility] 2021-04-27 2021-04-27 Orders Doctor JORDAN 1.2.840.114 [id number] Univers 00:00:00 00:00:00 Only Unassigned, YAZMIN 350.1.13.10 ity of [place] [facility] 4.2.7.2.686 [place] as [phone] [facility] [address] [place] 2021-04-20 2021-04-20 Outpatient R JUSTINE [facility] [id number] Univers 15:00:00 15:00:00 SCOTT ity of [facility] 2021-04-13 2021-04-13 Patient Cristina [facility] 1.2.840.114 [id number] Univers 00:00:00 00:00:00 Secure Msg Wondiful A HEALTH 350.1.13.10 ity of [place] 4.2.7.2.686 [place] as TOÑO?BLEA [id number] La whit [place] [address] [place] MEDICAL OFFICE BUILDING 2021-04-12 2021-04-12 Telephone Cristina [facility] 1.2.840.114 [id number] Univers 00:00:00 00:00:00 Wondiful A HEALTH 350.1.13.10 ity of [place] 4.2.7.2.686 [place] as TOÑO?BLEA [phone] [facility] [address] [place] MEDICAL OFFICE BUILDING 2021-03-27 2021-03-27 Telephone Prasanna Vargas [facility] 1.2.840.114 [id number] Univers 00:00:00 00:00:00 Cam [facility] 350.1.13.10 i ty of [place].2.[place] [phone] [facility] 134 [facility] 2021-03-23 2021-03-23 Outpatient R KAVYA [facility] [id number] Univers 13:30:00 13:30:00 CHILVANA ity o f [facility] 2021-03-23 2021-03-23 Outpatient R KAVYA [facility] [id number] Univers 13:30:00 13:30:00 CHILVANA ity o f [facility] 2021-03-22 2021-03-22 Outpatient R [facility] [id number] Univers 09:20:00 09:20:00 ATAGERARDO [facility] 2021-03-22 2021-03-22 Outpatient R [facility]NA [facility] [id number] Univers 09:20:00 09:20:00 [facility] 2021-03-20 2021-03-20 Outpatient R CRISTINA [facility] [id number] Univers 00:00:00 00:00:00 WONDIFUL ity o f [facility] 2021-03-18 2021-03-18 [facility] 1.2.840.114 [id number] Univers 00:00:00 00:00:00 Management Wondiful A HEALTH 350.1.13.10 ity of [place] 4.2.7.2.686 [place] as TOÑO?BLEA [id number] [facility] [address] [place] MEDICAL OFFICE [facility] 2021-03-16 2021-03-16 [employer] Tender Lab, Ang - Casper [facility] 1.2.840.1 14 [id number] Univers 11:16:07 11:31:07 Visit Claudette Evans A HEALTH 350.1.13.1 0 ity of [place] 4.2.7.2.686 [place] as TOÑO?BLEA [phone] La whit [place] [address] [place] MEDICAL OFFICE [facility] 2021-03-16 2021-03-16 Outpatient R CRISTINA [facility] [id number] Univers 11:30:00 11:30:00 WONDIFUL ity o f [facility] 2021-03-16 2021-03-16 [facility] [id number] Univers 11:00:00 11:14:45 WONDIFUL ity o f [facility] 2021-03-16 2021-03-16 Office [facility] 1.2.840.114 [id number] Univers 10:00:58 11:14:45 Visit Wondiful A HEALTH 350.1.13.10 ity of [place] 4.2.7.2.686 [place] as TOÑO?BLEA [phone] La whit [place] 044 [facility] OFFICE [facility] 2021-03-16 2021-03-16 Patient [facility] 1.2.840.114 [id number] Univers 00:00:00 00:00:00 Secure Msg Wondiful A HEALTH 350.1.13.10 ity of [place] 4.2.7.2.686 [place] as TOÑO?BLEA [id number] La whit [place] 044 [facility] 2021-03-02 2021-03-02 Outpatient [facility] [id number] Univers 16:15:00 16:15:00 WONDIFUL ity o f [facility] 2021-02-28 2021-02-28 Outpatient R HARDEEP [facility] [id number] Univers 18:30:00 18:30:00 ILEANA itchino of [facility] 2021-02-28 2021-02-28 Telephone [facility] 1.2.840.114 [id number] Univers 00:00:00 00:00:00 Wondiful A Health 350.1.13.10 ity of [place] 4.2.7.2.686 [place] as Toño?Blea [phone] Me whit ocasioey [address] [place] Medical Office [facility] 2021-02-27 2021-02-27 Outpatient R STEPHANY [facility] [id number] Univers 09:00:00 09:00:00 AMELIA lechuga of [facility] 2021-02-23 2021-02-23 Telephone [facility] 1.2.840.114 [id number] Univers 00:00:00 00:00:00 Wondiful A Health 350.1.13.10 ity of [place] 4.2.7.2.686 [place] as Toño?Blea [phone] La dicaliyah [place] [address] [place] Medical Office [facility] 2021-02-10 2021-02-10 Emergency Kaycee Méndez [facility] 1.2.840.114 [id number] Univers 18:12:00 23:39:00 Sharlene [place] 350.1.13.10 i ty of [place] 4.2.7.2.[place] [phone] [facility] [address] [place] 2021-02-09 2021-02-09 Hospital [facility] 1.2.241.143 [id number] Univers 13:40:00 23:59:00 Encounter Wondiful A Health 350.1.13.10 ity of [place] 4.2.7.2.686 [place] as Toño?Blea [id number] La whit [place] [address] [place] Medical Office [facility] 2021-02-09 2021-02-09 [employer] Tender Lab, Ang - Db [facility] 1.2.840.1 14 [id number] Univers 13:49:05 14:04:05 Visit Brian Evanslgbonnie A Health 350.1.13.1 0 ity of [place] 4.2.7.2.686 [place] as Toño?Blea [id number] La whit [place] [address] [place] Medical Office Building 2021-02-09 2021-02-09 Office [facility] 1.2.840.114 [id number] Univers 12:23:13 13:47:12 Visit Wondiful A Health 350.1.13.10 ity of [place] 4.2.7.2.686 [place] as Toño?Blea [id number] [address] Medical Office [facility] 2021-02-09 2021-02-09 Outpatient R CRISTINA [facility] [id number] Univers 13:00:00 13:00:00 WONDIFUL ity o f [facility] 2021-02-08 2021-02-08 Outpatient R NEHEMIAH MEEKSWVEz [facility] [id number] Univers 10:20:00 10:20:00 [facility]NA [facility] 2021-02-02 2021-02-02 Out[facility] [id number] Univers 10:30:00 10:30:00 SKYLAR lechuga [facility] 2021-02-02 2021-02-02 Telephone [facility] 1..840.114 [id number] Univers 00:00:00 00:00:00 Wondiful A Health 350.1.13.10 ity of [place] 4.2.7.2.686 [place] as Toño?Blea [id number] [address] Office [facility] 2021-02-01 2021-02-01 Outpatient [facility] [id number] Univers 08:30:00 08:30:00 SKYLAR [facility] 2021-01-31 2021-01-31 [facility] 1.2.840.114 [id number] Univers 18:44:04 19:41:26 Care [facility] 350.1.13.10 i ty of [place] 4.2.7.2.686 [place] as Toño?Blea [phone] [address] Medical Office [facility] 2021-01-31 2021-01-31 Outpatient [facility] [id number] Univers 19:00:00 19:00:00 FLACO ity o f [facility] 2021-01-31 2021-01-31 Telephone [facility] .2.840.114 [id number] Univers 00:00:00 00:00:00 Wondiful A Health 350.1.13.10 ity of [place] 4.2.7.2.686 [place] Toño?Blea [id number] La dicaliyah [place] [address] [place] Medical Office [facility] 2021-01-30 2021-01-30 Telephone [facility] 1.2.661.834 [id number] Univers 00:00:00 00:00:00 Sendil Cuate Lawson 350.1.13.10 ity [facility] 4.2.7.2.686 [place] ess[place] [phone] La whit [facility] 059 [facility] 2021-01-26 2021-01-26 Out[facility] [id number] Univers 14:00:00 14:00:00 [facility] 2021-01-25 2021-01-25 Outpatient R [facility] [id number] Univers 15:00:00 15:00:00 [facility] 2021-01-20 2021-01-20 Telemedici [facility] 1.2.840.114 [id number] Univers 16:51:22 17:12:41 ne Visit Skylar Kassandra [facility] 350.1.13.10 [facility] 4.2.7.2.686 [place] Toño?Blea [phone] [address] Office [facility] 2021-01-20 2021-01-20 Outpatient [facility] [id number] Univers 16:30:00 16:30:00 SKYLAR [facility] 2021-01-19 2021-01-19 Outpatient [facility] [id number] Univers 10:15:00 10:15:00 KAYLEY [facility] 2021-01-14 2021-01-14 JORDAN Guzman 1.2.840.114 [id number] Univers 00:00:00 00:00:00 Management Kassandra ARCE 350.1.13.10 [facility] 4.2.7.2.686 [place] as [id number] [address] 2021-01-12 2021-01-12 Emergency [facility] 1.2.222.795 [id number] Univers 16:10:00 19:45:00 Karin [place] 350.1.13.10 i ty of [place] 4.2.7.2.[place] [phone] [facility] [address] [place] 2021-01-12 2021-01-12 Outpatient R HARDEEP [facility] [id number] Univers 15:20:00 15:20:00 ILEANA chino [facility] 2021-01-12 2021-01-12 Urgent Thony Johnson [facility] 1.2.840.114 [id number] Univers 14:46:57 15:06:57 Noelle Ileana Medrano [facility] 350.1.13.10 ity of [place] 4.2.7.2.686 [place] as Toño?Blea [phone] [address] Office [facility] 2020-12-26 2020-12-26 Outpatient [facility] [id number] Univers 15:30:00 16:13:32 SENDIL [facility] 2020-12-26 2020-12-26 Office [facility] 1.2.840.114 [id number] Univers 15:30:00 16:13:32 Visit Rad LAWSON 350.1.13.10 ity of [place]2.7.2.[place] [phone] [address] 2020-12-26 2020-12-26 Office [facility] 1.2.840.114 [id number] Univers 15:00:32 16:13:32 Visit Rad Lawson 350.1.13.10 ity of [place] 4.2.7.2.686 [place] [phone] La dicil nal [address] [place] [address] 2020-12-26 2020-12-26 Outpatient R PONCE [facility] [id number] Univers 15:30:00 15:30:00 SENDIL ankush [facility] 2020-11-22 2020-11-22 Outpatient Farzana MIXON [facility] [id number] Univers 11:00:00 11:00:00 CELINA lechuga [facility] 2020-11-10 2020-11-10 Urgent Alissa Collins [facility] 1.2.840.114 [id number] 18:42:46 19:53:43 [facility] [id number] [place] 4.2.7.2.686 [phone] nal [address] 2020-11-10 2020-11-10 Outpatient R [facility] [id number] Univers 19:00:00 19:00:00 ankush [facility] 2020-10-31 2020-10-31 Emergency Kaycee Méndez [facility] 1.2.840.114 [id number] 18:52:00 22:15:00 Sharlene Lawson [id number] [place] 4.2.7.2.686 [place] [id number] [id number] 2020-10-31 2020-10-31 Outpatient R NATASHA [facility] [id number] Univers 19:00:00 19:00:00 CARI davis [facility] 2020-10-31 2020-10-31 Orders Doctor JORDAN 1.2.840.114 [id number] 00:00:00 00:00:00 Only Unassigned, YAZMIN 350.1.13.10 Marks [facility] 4.2.7.2.686 [id number] 2020-10-20 2020-10-20 Emergency Dev, K [facility] 1.2.840.114 [id number] 14:02:00 17:13:00 Sharlene Lawson 350.1.13.10 [place] 4.2.7.2.686 [place] [id number] [id number] 2020-10-14 2020-10-14 [facility] Prasanna Vargas [facility] 1.2.840.114 [id number] 10:00:00 23:59:00 Remington Lawson 350.1.13.10 [place] 4.2.7.2.686 [place] [id number] 2020-10-14 2020-10-14 [facility] [id number] Univers 13:30:00 13:30:00 CELINA lechuga [facility] 2020-10-09 2020-10-09 [facility] [id number] 12:00:00 15:57:00 Anna Jamarcus Lulu 350.1.13.10 [place] 4.2.7.2.686 [place] [id number] 2020-10-06 2020-10-06 Office [facility] [id number] 08:53:00 09:46:44 Visit Jm Lawson 350.1.13.10 [place] 4.2.7.2.686 Professio [id number] nal 134 [facility] 2020-10-06 2020-10-06 Outpatient Farzana VARGAS PRASANNA [facility] [id number] Univers 09:30:00 09:30:00 [facility] 2020-10-04 2020-10-04 Outpatient Farzana MIXON [facility] [id number] Univers 14:00:00 14:00:00 [facility] 2020-09-30 Outpatient Farzana MIXON [facility] [id number] Univers 10:30:00 10:30:00 CELINA [facility] 2020-09-29 2020-09-29 Outpatient Farzana SHAY [facility] [id number] Univers 13:45:00 13:45:00 PREET [facility] 2020-09-06 2020-09-06 Outpatient Farzana VARGAS PRASANNA [facility] [id number] Univers 15:30:00 15:30:00 [facility] 2020-09-02 2020-09-02 Outpatient DARRION QUIROZ [facility] [id number] Univers 15:40:00 15:40:00 DARRION WYATT [facility] 2020-08-31 2020-08-31 Outpatient Farzana SERRA [facility] [id number] Univers 10:30:00 10:30:00 SENDIL [facility] 2020-08-18 2020-08-18 Outpatient Farzana VARGAS PRASANNA [facility] [id number] Univers 09:30:00 09:30:00 [facility] 2020-08-11 2020-08-11 Outpatient R PRASANNA VARGAS [facility] [id number] Univers 13:30:00 13:30:00 ity [facility] 2020-08-04 2020-08-04 Outpatient R JUSTINE [facility] [id number] Univers 14:00:00 14:00:00 SCOTT ity [facility] 2020-07-28 2020-07-28 Outpatient R PONCE [facility] [id number] Univers 10:30:00 10:30:00 [facility] 2020-06-30 Outpatient R CRISTINA [facility] [id number] Univers 16:15:00 16:15:00 WONDIFUL ity o f [facility] 2020-06-17 2020-06-17 Outpatient R DARRION WYATT [facility] [id number] Univers 15:00:00 15:00:00 DARRION WYATT [facility] 2020-06-16 2020-06-16 Outpatient R PONCE [facility] [id number] Univers 15:30:00 15:30:00 [facility] 2020-[facility]-09 2020-06-09 Outpatient R NI DISLA [facility] [id number] Univers 12:30:00 12:30:[facility] 2020-[facility] 2020-06-08 Outpatient R NI DISLA [facility] [id number] Univers 08:00:00 08:00:[facility] 2020-[facility] 2020-06-02 Outpatient R PONCE [facility] [id number] Univers 09:00:00 09:00:00 [facility] 2020-05-28 2020-05-28 Outpatient R NATASHA [facility] [id number] Univers 10:00:00 10:00:00 CARI ity o f [facility] 2020-05-24 2020-05-24 Outpatient R NI DISLA [facility] [id number] Univers 10:00:00 10:00:00 ity [facility] 2020-05-19 2020-05-19 Outpatient R OSITO HITCHCOCK [facility] [id number] Univers 16:30:00 [facility]30:[facility]-17 2020-05-17 Outpatient R DARRION WYATT [facility] [id number] Univers 13:00:00 13:00:00 DARRION WYATT [facility] 2020-05-16 2020-05-16 Outpatient R CRISTINA, [facility] [id number] Univers 16:00:00 16:00:00 WONDIFUL ity o f [facility] 2020-05-08 2020-05-08 Emergency X VIRGIE [facility] ERT [id number] Univers 10:24:00 13:03:00 OLAMIDE [facility] 2020-05-03 2020-05-03 Outpatient R CRISTINA [facility] [id number] Univers 15:00:00 15:00:00 WONDIFUL ity o f [facility] 2020-04-30 2020-05-01 Outpatient X HOFF, [facility] JOSÉ MANUEL [id number] Univers 11:14:00 15:50:00 RODRIGUEZ [facility] 2020-04-30 2020-04-30 Outpatient R JASPAL [facility] [id number] Univers 10:20:00 10:20:00 ROSALES [facility] 2020-04-30 2020-04-30 Outpatient R JASPAL [facility] [id number] Univers 10:15:00 10:15:00 ROSALES [facility] 2020-04-28 2020-04-28 Outpatient R OSITO HITCHCOCK [facility] [id number] Univers 14:00:00 [facility]:00:00 [facility]-04-[facility] 2020-04-25 Outpatient R CRISTINA [facility] [id number] Univers 16:15:00 16:15:00 WONDIFUL ity o f [facility] 2020-04-18 2020-04-18 Outpatient R CORETTA OSITO [facility] [id number] Univers 10:00:00 10:00:00 [facility] 2020-04-15 2020-04-15 Outpatient R PONCE [facility] [id number] Univers 10:30:00 10:30:00 SENDIL [facility] 2020-04-12 2020-04-13 [facility] [id number] Univers 13:38:00 16:25:00 [facility] 2020-03-17 2020-03-17 Outpatient Farzana CARNES [facility] [id number] Univers 16:15:00 16:15:00 [facility] 2020-03-04 2020-03-04 Refill Coretta [facility] [id number] 00:00:00 00:00:00 MULTISPEC 350.1.13.10 IALTY 4.2.7.2.686 CENTER [id number] [facility] 2020-02-25 2020-02-25 Outpatient Farzana HITCHCOCK OSITO [facility] [id number] Univers 16:00:00 16:00:00 [facility] 2020 2020 Outpatient Farzana CARNES [facility] [id number] Univers 14:00:00 [facility]00[facility] 2020-02-08 Outpatient PRASANNA LOOMIS [facility] [id number] Univers 10:30:00 10:30:00 [facility] 2020-02-04 2020-02-04 Outpatient R CORETTA OSITO [facility] [id number] Univers 13:30:00 13:30:00 [facility] 2020-01-23 2020-01-23 Outpatient R [facility] [id number] Univers 10:15:00 10:15:00 [facility] 2020-01-21 2020-01-21 Outpatient R CORETTA OSITO [facility] [id number] Univers 13:00:00 13:00:00 [facility] 2020-01-14 2020-01-14 Outpatient R CORETTA OSITO [facility] [id number] Univers 16:00:00 16:00:00 [facility] 2020-01-05 2020-01-05 Outpatient R PRASANNA VARGAS [facility] [id number] Univers 13:45:00 13:45:00 [facility] 2019-12-03 2019-12-03 Outpatient R AKINSIPE, [facility] [id number] Univers 10:30:00 10:30:00 CRICKET ity o f [facility] 2019-11-27 2019-11-27 Outpatient R VANAPHAN, [facility] [id number] Univers 11:00:00 11:00:00 [facility] 2019-11-25 2019-11-25 Outpatient R VANAPHAN, [facility] [id number] Univers 08:00:00 08:00:00 [facility] 2019-11-18 2019-11-18 Outpatient R VANAPHAN, [facility] [id number] Univers 10:00:00 10:00:00 [facility] 2019-09-02 2019-09-02 Outpatient R AKINSIPE, [facility] [id number] Univers 11:00:00 11:00:00 CRICKET maradiagay o susan [facility] 2019-08-14 2019-08-14 Outpatient R VANAPHAN, [facility] [id number] Univers 10:15:00 10:15:00 [facility] 2019-08-13 2019-08-13 Outpatient R AKINSIPE, [facility] [id number] Univers 11:00:00 11:00:00 CRICKET lechuga o susan [facility] 2019-08-12 2019-08-12 Outpatient R [facility] [id number] Univers 09:00:00 09:00:00 [facility] 2019-07-20 2019-07-20 Outpatient PRASANNA HERRERA [facility] CHRIS [id number] Univers 16:06:00 16:06:00 [facility] 2019-07-20 2019-07-20 Outpatient R AKINSIPE, [facility] [id number] Univers 08:15:00 08:15:00 CRICKET ity o f [facility] 2019-07-13 2019-07-13 Outpatient R AKINSIPE, [facility] [id number] Univers 08:00:00 08:00:00 CRICKET ity o f [facility] 2019-07-12 2019-07-12 Outpatient P PRASANNA VARGAS [facility] CHRIS [id number] Univers 13:39:00 13:39:00 [facility] 2019-07-06 2019-07-06 Outpatient R BRANDON [facility] [id number] Univers 13:00:00 13:00:00 CRICKET lechuga o susan [facility] 2019-06-13 2019-06-13 Emergency X MARGARITA [facility] ERT [id number] Univers 10:40:46 12:35:00 [facility]-05-[facility] 2019-05-14 Outpatient P PRASANNA VARGAS [facility] CHRIS [id number] Univers 23:07:00 09:15:00 [facility] Results Test Description Test Time Test Comments Results Result Comments Source TEST, SERUM 2022-08-01 00:23:34 Test Item Value Reference Range Interpretation Comme nts PREG SERUM (test code = 5125337120) Negative WESLEY (test code = WESLEY) Less than 10 IU/L. ?If low titer or ectopic is suspected, resubmit specimen in 48-[address] ([id number])2022-07-31 23:58:12 Test Item Value Reference Range Interpretation Comments NA (test code = 140 mmol/L 135-145 5314817955) K (test code = 3.6 mmol/L 3.5-5.0 4309385461) CL (test code = 106 mmol/L 98-108 2530052860) CO2 TOTAL (test code = 21 mmol/L 23-31 L 6589447394) AGAP (test code = 13 2-16 7839194638) BUN (test code = 8 mg/dL 7-23 7908835821) GLUCOSE (test code = 90 mg/dL 70-110 3636991791) CREATININE (test code = 0.90 mg/dL 0.50-1.04 4627109208) TOTAL BILI (test code = 0.5 mg/dL 0.1-1.8 9214022877) CALCIUM (test code = 9.0 mg/dL 8.6-10.6 5192694844) T PROTEIN (test code = 7.8 g/dL 6.3-8.2 3886020537) ALBUMIN (test code = 4.6 g/dL 3.5-5.0 0090089577) ALK PHOS (test code = 63 U/L 34-122 0106184569) ALTv (test code = 23 U/L 5-35 2-6) AST(SGOT) (test code = 27 U/L 13-40 5948154760) eGFR (test code = 75.1 mL/min/1.73m2 8049080293) WESLEY (test code = WESLEY) Association of [...] tests). Lab Interpretation Abnormal (test code = 62733-7) [facility] 23:57:32 Test Item Value Reference Range Interpretation Comments LIPASE (test code = 0993958747) 55 U/L 0-220 Lab Interpretation (test code = Normal 70625-8) [facility] [id number] 23:47:31 Test Item Value Reference Range Interpretation [...] RDW-SD (test code = 42.5 fL 39.0-49.9 30762-4) RDW-CV (test code = 13.0 % 12.0-15.5 788-0) PLT (test code = 339 See_Comment [Automated 777-3) message] The sy stem which generated this result transmitted reference range : 166 - 358 10*3/ ?L. The reference r david was not used to interpret this result as normal/abnormal . MPV (test code = 9.4 fL 9.5-12.9 L 11206-3) NRBC/100 WBC (test 0.0 See_Comment [Automat ed code = 1513706967) message] The system which generated this result transmitted reference range : 0.0 - 10.0 /100 WBCs. The refer ence range was not u sed to interpret th is result as normal/abnormal . NRBC x10^3 (test code See_Comment [Auto mated = 7180285122) message] The s ystem which generated this result transmitted reference range : 10*3/?L. The reference range was not used to interpret this result as normal/abnormal . GRAN MAT (NEUT) % 51.2 % (test code = 770-8) IMM GRAN % (test code 0.20 % = 8864942851) LYMPH % (test code = 36.5 % 736-9) MONO % (test code = 5.7 % 5905-5) EOS % (test code = 5.9 % 713-8) BASO % (test code = 0.5 % 706-2) GRAN MAT x10^3(ANC) 2.89 10*3/uL 1.88-7.09 (test code = 7335534616) IMM GRAN x10^3 (test 0.00-0.06 code = 1542118735) LYMPH x10^3 (test code 2.06 10*3/uL 1.32-3.29 = 731-0) MONO x10^3 (test code 0.32 10*3/uL 0.33-0.92 L = 742-7) EOS x10^3 (test code = 0.33 10*3/uL 0.03-0.39 711-2) BASO x10^3 (test code 0.03 10*3/uL 0.01-0.07 = 704-7) Lab Interpretation Abnormal (test code = 63502-9) [facility] [id number] 16:14:38 Test Item Value Reference Range Interpretation Comments POCT Molecular Strep (test code = Negative Negative 71709-5) Lab Interpretation (test code = Normal 56233-1) [facility] ([id number])2022-05-05 19:35:37 Test Item Value Reference Range Interpretation Comments NA (test code = 139 mmol/L 135-145 7469595568) K (test code = 4.4 mmol/L 3.5-5.0 0842446799) CL (test code = 104 mmol/L 98-108 1353356676) CO2 TOTAL (test code = 22 mmol/L 23-31 L 8648349086) AGAP (test code = 2-16 8185047113) BUN (test code = 11 mg/dL 7-23 1010164527) GLUCOSE (test code = 95 mg/dL 70-110 7216804870) CREATININE (test code = 0.71 mg/dL 0.50-1.04 8565570794) TOTAL BILI (test code = 0.4 mg/dL 0.1-1.9 6553023075) CALCIUM (test code = 9.1 mg/dL 8.6-10.6 7598429156) T PROTEIN (test code = 7.9 g/dL 6.3-8.2 9697337242) ALBUMIN (test code = 4.7 g/dL 3.5-5.0 3973469679) ALK PHOS (test code = 114 U/L 34-122 1107300810) ALTv (test code = 21 U/L 5-35 1742-6) AST(SGOT) (test code = 21 U/L 13-40 4316367363) eGFR (test code = mL/min/1.73m2 8109634702) WESLEY (test code = WESLEY) Association of [...] tests). Lab Interpretation Abnormal (test code = 61673-4) [facility] WITH [id number] 19:25:37 Test Item Value Reference Range Interpretation [...] RDW-SD (test code = 41.7 fL 39.0-49.9 10542-5) RDW-CV (test code = 12.7 % 12.0-15.5 788-0) PLT (test code = See_Comment H [Automated 777-3) message] The sy stem which generated this result transmitted reference range : 166 - 358 10*3/ ?L. The reference r david was not used to interpret this result as normal/abnormal . MPV (test code = 8.8 fL 9.5-12.9 L 64485-8) NRBC/100 WBC (test See_Comment [Automat ed code = 2308138978) message] The system which generated this result transmitted reference range : 0.0 - 10.0 /100 WBCs. The refer ence range was not u sed to interpret th is result as normal/abnormal . NRBC x10^3 (test code See_Comment [Auto mated = 7099859320) message] The s ystem which generated this result transmitted reference range : 10*3/?L. The reference range was not used to interpret this result as normal/abnormal . GRAN MAT (NEUT) % 56.1 % (test code = 770-8) IMM GRAN % (test code 0.40 % = 4897816093) LYMPH % (test code = 29.9 % 736-9) MONO % (test code = 5.4 % 5905-5) EOS % (test code = 7.8 % 713-8) BASO % (test code = 0.4 % 706-2) GRAN MAT x10^3(ANC) 3.75 10*3/uL 1.88-7.09 (test code = 2566656385) IMM GRAN x10^3 (test 0.03 10*3/uL 0.00-0.06 code = 4550075070) LYMPH x10^3 (test code 2.00 10*3/uL 1.32-3.29 = 731-0) MONO x10^3 (test code 0.36 10*3/uL 0.33-0.92 = 742-7) EOS x10^3 (test code = 0.52 10*3/uL 0.03-0.39 H 711-2) BASO x10^3 (test code 0.03 10*3/uL 0.01-0.07 = 704-7) Lab Interpretation Abnormal (test code = 15086-1) [facility] [id number] 19:00:00 Test Item Value Reference Range Interpretation Comments POCT PREG (test code = 1605) negative On board controls acceptable with present C Line (test code = 3574) POCT PREG LOT # (test code = 3575) [id number] POCT PREG TEST DATE (test 08-11-2023 code = 3576) Lab Interpretation (test code = Normal 37072-2) [facility] [id number] 15:21:11 Test Item Value Reference Range Interpretation Comments WBC (test code = See_Comment [Automated 0125-2) message] The sy stem which generated this result transmitted reference range : 4.30 - 11.10 10*3/?L. The reference range was not used to interpret this result as normal/abnormal . RBC (test code = See_Comment [Automated 915-8) message] The sy stem which generated this [...] RDW-SD (test code = 42.6 fL 39.0-49.9 27688-6) RDW-CV (test code = 12.9 % 12.0-15.5 788-0) PLT (test code = See_Comment H [Automated 777-3) message] The sy stem which generated this result transmitted reference range : 166 - 358 10*3/ ?L. The reference r david was not used to interpret this result as normal/abnormal . MPV (test code = 9.1 fL 9.5-12.9 L 79045-1) NRBC/100 WBC (test See_Comment [Automat ed code = 9617122146) message] The system which generated this result transmitted reference range : 0.0 - 10.0 /100 WBCs. The refer ence range was not u sed to interpret th is result as normal/abnormal . NRBC x10^3 (test code See_Comment [Auto mated = 5221962122) message] The s ystem which generated this result transmitted reference range : 10*3/?L. The reference range was not used to interpret this result as normal/abnormal . GRAN MAT (NEUT) % 56.8 % (test code = 770-8) IMM GRAN % (test code 0.30 % = 1646337736) LYMPH % (test code = 29.5 % 736-9) MONO % (test code = 4.3 % 5905-5) EOS % (test code = 8.3 % 713-8) BASO % (test code = 0.8 % 706-2) GRAN MAT x10^3(ANC) 3.57 10*3/uL 1.88-7.09 (test code = 4116253538) IMM GRAN x10^3 (test 0.00-0.06 code = 8152989250) LYMPH x10^3 (test code 1.85 10*3/uL 1.32-3.29 = 731-0) MONO x10^3 (test code 0.27 10*3/uL 0.33-0.92 L = 742-7) EOS x10^3 (test code = 0.52 10*3/uL 0.03-0.39 H 711-2) BASO x10^3 (test code 0.05 10*3/uL 0.01-0.07 = 704-7) Lab Interpretation Abnormal (test code = 38936-4) [facility] METABOLIC PANEL ([id number])2022-04-26 15:12:13 Test Item Value Reference Range Interpretation Comments NA (test code = 141 mmol/L 135-145 2523169643) K (test code = 3.4 mmol/L 3.5-5.0 L 4200562366) CL (test code = 104 mmol/L 98-108 5959424628) CO2 TOTAL (test code = 23 mmol/L 23-31 0183699420) AGAP (test code = 2-16 1412455458) BUN (test code = 9 mg/dL 7-23 7809902094) GLUCOSE (test code = 101 mg/dL 70-110 8935846526) CREATININE (test code = 0.82 mg/dL 0.50-1.04 0986194099) TOTAL BILI (test code = 0.7 mg/dL 0.1-1.0 9658383651) CALCIUM (test code = 9.3 mg/dL 8.6-10.6 4134615781) T PROTEIN (test code = 8.1 g/dL 6.3-8.2 6291455958) ALBUMIN (test code = 4.7 g/dL 3.5-5.0 9725049604) ALK PHOS (test code = 108 U/L 34-122 3543572614) ALTv (test code = 24 U/L 5-35 1742-6) AST(SGOT) (test code = 49 U/L 13-40 H 0197780330) eGFR (test code = mL/min/1.73m2 5770654023) WESLEY (test code = WESLEY) Association of [...] tests). Lab Interpretation Abnormal (test code = 26600-4) [facility] [id number] 14:45:00 Test Item Value Reference Range Interpretation Comments POCT PREG (test code = 1605) negative On board controls acceptable with present C Line (test code = 3574) POCT PREG LOT # (test code = 3575) [id number] POCT PREG TEST DATE (test 08/11/2023 code = 3576) Lab Interpretation (test code = Normal 13536-3) [facility] [id number] 01:22:00 Test Item Value Reference Range Interpretation Comments POCT PREG (test code = 1605) Negative On board controls acceptable with Present C Line (test code = 3574) POCT PREG LOT # (test code = 3575) [id number] POCT PREG TEST DATE (test 08-11-2023 code = 3576) Lab Interpretation (test code = Normal 51044-8) [facility] METABOLIC PANEL (NA, K, CL, CO2, GLUCOSE, BUN, CREATININE, CA)2022-04-07 23:01:10 Test Item Value Reference Range Interpretation Comments NA (test code = 138 mmol/L 135-145 5071903857) K (test code = 4.3 mmol/L 3.5-5.0 8376810048) CL (test code = 107 mmol/L 98-108 3435575797) CO2 TOTAL (test code = 20 mmol/L 23-31 L 9291440924) AGAP (test code = 2-16 3439752021) BUN (test code = 9 mg/dL 7-23 0599658067) GLUCOSE (test code = 204 mg/dL 70-110 H 0802650658) CREATININE (test code = 0.74 mg/dL 0.50-1.04 9431896704) CALCIUM (test code = 9.1 mg/dL 8.6-10.6 3067979779) eGFR (test code = mL/min/1.73m2 5422923123) WESLEY (test code = WESLEY) Association of [...] tests). Lab Interpretation Abnormal (test code = 99980-7) [facility] WITH [id number] 22:57:34 Test Item Value Reference Range Interpretation [...] RDW-SD (test code = 42.9 fL 39.0-49.9 01517-0) RDW-CV (test code = 13.4 % 12.0-15.5 788-0) PLT (test code = See_Comment H [Automated 777-3) message] The sy stem which generated this result transmitted reference range : 166 - 358 10*3/ ?L. The reference r david was not used to interpret this result as normal/abnormal . MPV (test code = 8.9 fL 9.5-12.9 L 13544-8) NRBC/100 WBC (test See_Comment [Automat ed code = 6782526907) message] The system which generated this result transmitted reference range : 0.0 - 10.0 /100 WBCs. The refer ence range was not u sed to interpret th is result as normal/abnormal . NRBC x10^3 (test code See_Comment [Auto mated = 8257191889) message] The s ystem which generated this result transmitted reference range : 10*3/?L. The reference range was not used to interpret this result as normal/abnormal . GRAN MAT (NEUT) % 88.7 % (test code = 770-8) IMM GRAN % (test code 0.70 % = 3084790138) LYMPH % (test code = 9.4 % 736-9) MONO % (test code = 0.9 % 5905-5) EOS % (test code = 0.1 % 713-8) BASO % (test code = 0.2 % 706-2) GRAN MAT x10^3(ANC) 7.81 10*3/uL 1.88-7.09 H (test code = 3533215818) IMM GRAN x10^3 (test 0.06 10*3/uL 0.00-0.06 code = 9792545225) LYMPH x10^3 (test code 0.83 10*3/uL 1.32-3.29 L = 731-0) MONO x10^3 (test code 0.08 10*3/uL 0.33-0.92 L = 742-7) EOS x10^3 (test code = 0.03-0.39 L 711-2) BASO x10^3 (test code 0.01-0.07 = 704-7) Lab Interpretation Abnormal (test code = 97350-6) [facility] [id number] 14:07:00 Test Item Value Reference Range Interpretation Comments POCT PREG (test code = 1605) negative On board controls acceptable with present C Line (test code = 3574) POCT PREG LOT # (test code = 3575) [id number] POCT PREG TEST DATE (test 08/11/2023 code = 3576) Lab Interpretation (test code = Normal 82837-1) [facility] [id number] 13:52:00 Test Item Value Reference Range Interpretation Comments POCT PREG (test code = 1605) negative On board controls acceptable with C present Line (test code = 3574) Lab Interpretation (test code = Normal 04270-7[id number] Test Item Value Reference Range Interpretation Comments POCT PREG (test code = 1605) negative On board controls acceptable with yes C Line (test code = 3574) POCT PREG LOT # (test code = 3575) [id number] POCT PREG TEST DATE (test 07/11/2023 code = 3576) Lab Interpretation (test code = Normal 64529-7) [facility]. METABOLIC PANEL ([id number] 17:51:43 Test Item Value Reference Range Interpretation Comments NA (test code = 139 mmol/L 135-145 [id number]) K (test code = 4.1 mmol/L 3.5-5 3710832347) CL (test code = 104 mmol/L 98-108 1131798506) CO2 TOTAL (test code = 22 mmol/L 23-31 L [id number]) AGAP (test code = 2-16 5366024193) BUN (test code = 7 mg/dL 7-23 4749416013) GLUCOSE (test code = 114 mg/dL 70-110 H 1684139128) CREATININE (test code = 0.69 mg/dL 0.5-1.04 2229805658) TOTAL BILI (test code = 0.4 mg/dL 0.1-1.1 1146793042) CALCIUM (test code = 9.7 mg/dL 8.6-10.6 6854652984) T PROTEIN (test code = 7.2 g/dL 6.3-8.2 9406684240) ALBUMIN (test code = 4.6 g/dL 3.5-5 8487526655) ALK PHOS (test code = 65 U/L 34-122 0739669483) ALTv (test code = 15 U/L 5-35 1742-6) AST(SGOT) (test code = 19 U/L 13-40 9013950509) eGFR (test code = mL/min/1.73m2 6873398254) WESLEY (test code = WESLEY) [employer] [...] tests). Lab Interpretation Abnormal (test code = 64459-1) [facility] WITH [id number] 17:40:24 Test Item Value Reference Range Interpretation Comments WBC (test code = See_Comment [Automated 9793-2) message] The sy stem which generated this result transmitted reference range : 4.30 - 11.10 10*3/?L. The reference range was not used to interpret this result as normal/abnormal . RBC (test code = See_Comment [Automated 951-8) message] The sy stem which generated this [...] RDW-SD (test code = 43.1 fL 39-49.9 68500-2) RDW-CV (test code = 13.2 % 12-15.5 788-0) PLT (test code = See_Comment [Automated 777-3) message] The sy stem which generated this result transmitted reference range : 166 - 358 10*3/ ?L. The reference r david was not used to interpret this result as normal/abnormal . MPV (test code = 9.5 fL 9.5-12.9 62923-4) NRBC/100 WBC (test See_Comment [Automat ed code = 8094923106) message] The system which generated this result transmitted reference range : 0.0 - 10.0 /100 WBCs. The refer ence range was not u sed to interpret th is result as normal/abnormal . NRBC x10^3 (test code See_Comment [Auto mated = 9458299175) message] The s ystem which generated this result transmitted reference range : 10*3/?L. The reference range was not used to interpret this result as normal/abnormal . GRAN MAT (NEUT) % 57.8 % (test code = 770-8) IMM GRAN % (test code 0.20 % = 7176559321) LYMPH % (test code = 30.8 % 736-9) MONO % (test code = 5.1 % 5905-5) EOS % (test code = 5.6 % 713-8) BASO % (test code = 0.5 % 706-2) GRAN MAT x10^3(ANC) 3.61 10*3/uL 1.88-7.09 (test code = 3799203310) IMM GRAN x10^3 (test 0-0.06 code = 1070140680) LYMPH x10^3 (test code 1.92 10*3/uL 1.32-3.29 = 731-0) MONO x10^3 (test code 0.32 10*3/uL 0.33-0.92 L = 742-7) EOS x10^3 (test code = 0.35 10*3/uL 0.03-0.39 711-2) BASO x10^3 (test code 0.03 10*3/uL 0.01-0.07 = 704-7) Lab Interpretation Abnormal (test code = 37334-5) [facility] [id number] 17:27:00 Test Item Value Reference Range Interpretation Comments POCT PREG (test code = 1605) negative On board controls acceptable with present C Line (test code = 3574) POCT PREG LOT # (test code = 3575) [id number] POCT PREG TEST DATE (test code = 3576) Lab Interpretation (test code = Normal 53351-6) [facility]45[facility]21 Test Item Value Reference Range Interpretation Comments LIPASE (test code = 9520758828) 41 U/L 0-220 Lab Interpretation (test code = Normal 78292-2) [facility] [id number] 10:57:00 Test Item Value Reference Range Interpretation Comments POCT PREG (test code = 1605) Negative On board controls acceptable with Present C Line (test code = 3574) POCT PREG LOT # (test code = 3575) [id number] POCT PREG TEST DATE (test 03/12/2023 code = 3576) Lab Interpretation (test code = Normal 68516-8) [facility] (NA, K, CL, CO2, GLUCOSE, BUN, CREATININE, CA)2022-01-18 10:56:51 Test Item Value Reference Range Interpretation Comments NA (test code = 137 mmol/L 135-145 1455066066) K (test code = 4.6 mmol/L 3.5-5 Slight 4398658878) hemolysis CL (test code = 108 mmol/L 98-108 8308160138) CO2 TOTAL (test code 22 mmol/L 23-31 L = 9549532769) AGAP (test code = 2-16 3069055200) BUN (test code = 11 mg/dL 7-23 Slight 3732721974) hemolysis GLUCOSE (test code = 83 mg/dL 70-110 4259678406) CREATININE (test code 0.68 mg/dL 0.5-1.04 = 9218262601) CALCIUM (test code = 8.8 mg/dL 8.6-10.6 0961610974) eGFR (test code = mL/min/1.73m2 9545505343) WESLEY (test code = WESLEY) Association of [...] tests). Lab Interpretation Abnormal (test code = 87867-2) [facility] (ALB,T.PRO,BILI T,BU/BC,ALT,AST,ALK PHOS)2022-01-18 10:56:51 Test Item Value Reference Range Interpretation Comments TOTAL BILI (test code = 5312601027) 0.6 mg/dL 0.1-1.1 BILI UNCON (test code = 3314432973) 0.1 mg/dL 0.1-1.1 BILI CONJ (test code = 1936125861) 0.0 mg/dL 0-0.3 T PROTEIN (test code = 7868898533) 8.6 g/dL 6.3-8.2 H ALBUMIN (test code = 6645753455) 5.1 g/dL 3.5-5 H ALK PHOS (test code = 1509258317) 79 U/L 34-122 ALTv (test code = 1742-6) 117 U/L 5-35 H AST(SGOT) (test code = 0659720439) 163 U/L 13-40 H Lab Interpretation (test code = Abnormal 26536-4) [facility], [id number] 10:54:25 Test Item Value Reference Range Interpretation Comments PREG SERUM (test code Negative = 8070712250) WESLEY (test code = WESLEY) Less than 10 IU/L. ?If low titer or ectopic is suspected, resubmit specimen in 48-[address] [facility] WITH [id number] 10:40:49 Test Item Value Reference Range Interpretation Comments WBC (test code = See_Comment [Automated 4889-2) message] The sy stem which generated this result transmitted reference range : 4.30 - 11.10 10*3/?L. The reference range was not used to interpret this result as normal/abnormal . RBC (test code = See_Comment [Automated 029-8) message] The sy stem [...] RDW-SD (test code = 45.3 fL 39-49.9 98196-6) RDW-CV (test code = 14.5 % 12-15.5 788-0) PLT (test code = See_Comment [Automated 412-3) message] The sy stem which generated this result transmitted reference range : 166 - 358 10*3/ ?L. The reference r david was not used to interpret this result as normal/abnormal . MPV (test code = 9.5 fL 9.5-12.9 15101-7) NRBC/100 WBC (test See_Comment [Automat ed code = 2991820284) message] The system which generated this result transmitted reference range : 0.0 - 10.0 /100 WBCs. The refer ence range was not u sed to interpret th is result as normal/abnormal . NRBC x10^3 (test code See_Comment [Auto mated = 3829814515) message] The s ystem which generated this result transmitted reference range : 10*3/?L. The reference range was not used to interpret this result as normal/abnormal . GRAN MAT (NEUT) % 47.6 % (test code = 770-8) IMM GRAN % (test code 0.60 % = 4491303825) LYMPH % (test code = 39.9 % 736-9) MONO % (test code = 5.9 % 5905-5) EOS % (test code = 5.3 % 713-8) BASO % (test code = 0.7 % 706-2) GRAN MAT x10^3(ANC) 4.45 10*3/uL 1.88-7.09 (test code = 8953192583) IMM GRAN x10^3 (test 0.06 10*3/uL 0-0.06 code = 5687123558) LYMPH x10^3 (test code 3.74 10*3/uL 1.32-3.29 H = 731-0) MONO x10^3 (test code 0.55 10*3/uL 0.33-0.92 = 742-7) EOS x10^3 (test code = 0.50 10*3/uL 0.03-0.39 H 711-2) BASO x10^3 (test code 0.07 10*3/uL 0.01-0.07 = 704-7) Lab Interpretation Abnormal (test code = 10393-2) [facility] [id number] 18:31:00 Test Item Value Reference Range Interpretation Comments POCT PREG (test code = 1605) Negative On board controls acceptable with C Yes Line (test code = 3574) POCT PREG LOT # (test code = 3575) POCT PREG TEST DATE (test code = 3576) [facility] SPECIFIC [id number] 18:31:00 Test Item Value Reference Range Interpretation [...] = 3257) Trace Negative - Negative [facility] Notes Date/Time Note Provider Source 2022-12-03 Formatting of this note might be differe nt from the original. Blayne Silva RN [facility] 08:57:03-00:00 Patient has an appointment 12/12/22. Blayne Silva RN 12/03/2022 8:57 AM "
[2022-12-19 05:20] LABS: Absolute Lymphocytes (CBC) 1.7 K/uL (0.7-4.9); MCV 84.9 fL (80-100); MPV 7.6 fL (7.6-11.3); Platelets 547 thou/uL (152-406); RBC Red Blood Cell Count 4.59 M/uL (3.86-4.86)
[2022-12-19] MEDS ORDERED: MORPHINE 4 MG/ML SYR ONE (05:23)
[2022-12-19] MEDS ORDERED: ONDANSETRON 4 MG/2 ML VIAL ONE (05:23)
[2022-12-19] MEDS ORDERED: NA CHLORIDE 0.9% 1,000 ML ONE (05:24)
[2022-12-19] MEDS ORDERED: FAMOTIDINE 20 MG/2 ML VIAL IV ONE (05:24)
[2022-12-19 05:38] LABS: Albumin 3.8 g/dL (3.4-5.0); Bilirubin Total 0.6 mg/dL (0.2-1.0); Protein, Total 8.4 g/dL (6.4-8.2)
[2022-12-19 05:40] LABS: Potassium 3.5 mEq/L (3.5-5.1)
[2022-12-19] MEDS ORDERED: PROMETHAZINE INJ 25 MG/ML AMP ONE (06:03)
--- NOTE | 2022-12-19 06:50 | EDPHYS ---
Physician Documentation [facility] Name: Natanael Dyson Age: 27 yrs Sex: Female : 1995 Arrival Date: 12/19/2022 Time: 04:16 Bed 6 Private MD: ED Physician Brodie Mota HPI: 12/19 04:20 This 27 yrs old Female presents to ER via Unassigned with complaints of Post sp4 Surgical Pain, Breathing Difficulty. 06:20 27-year-old female presents with acute onset of nausea vomiting diarrhea and shortness sp4 of breath. Patient has had laparoscopic cholecystectomy on 06/03/[address] Lora, for acute cholecystitis. Patient was subsequently admitted here on 12/05/2022 for worsening abdominal pain and shortness of breath. She was managed for pain and anxiety here in the hospital. And discharged on 12/07/2022. Today patient is presents with worsening mid abdominal pain, nausea vomiting and diarrhea. Also complained of shortness of breath. . Historical: - Allergies: 04:47 Reglan; jb4 04:47 Toradol; jb4 - PMHx: 04:47 Kidney stone; Anxiety; Depressive disorder; jb4 - PSHx: 04:47 Ligation of fallopian tube; Cholecystectomy; jb4 - Immunization history:: Adult Immunizations up to date. - Social history:: Smoking status: Patient denies any tobacco usage or history of. - Family history:: not pertinent. ROS: 06:20 Constitutional: Negative for fever, chills, and weight loss, Abdomen/GI: Positive sp4 nausea vomiting and diarrhea. Negative constipation 06:20 All other systems are negative. Exam: 06:20 Constitutional: This is a well developed, well nourished patient who is awake, alert, sp4 and in no acute distress. Anxious appearing female. Emotional upset Head/Face: Normocephalic, atraumatic. Eyes: Pupils equal round and reactive to light, extra-ocular motions intact. Lids and lashes normal. Conjunctiva and sclera are not injected. Cornea within normal limits. Periorbital areas with no swelling, redness, or edema. ENT: Nares patent. No nasal discharge, no septal abnormalities noted. Tympanic membranes are normal and external auditory canals are clear. Oropharynx with no redness, swelling, or masses, exudates, or evidence of obstruction, uvula midline. Mucous membranes moist. Neck: Trachea midline, no thyromegaly or masses palpated, and no cervical lymphadenopathy. Supple, full range of motion without nuchal rigidity, or vertebral point tenderness. Chest/axilla: Normal chest wall appearance and motion. Nontender with no deformity. No lesions are appreciated. Cardiovascular: Regular rate and rhythm with a normal S1 and S2. No gallops, murmurs, or rubs. Normal PMI, no JVD. No pulse deficits. Respiratory: Lungs have equal breath sounds bilaterally, clear to auscultation and percussion. No rales, rhonchi or wheezes noted. No increased work of breathing, no retractions or nasal flaring. Abdomen/GI: Soft, there is diffusely tender abdomen without rebound, there is postoperative laparoscopic incisions that are clean dry and intact. No distention, no rigidity Back: No spinal tenderness. No costovertebral tenderness. Skin: Warm, dry with normal turgor. Normal color with no rashes, no lesions, and no evidence of cellulitis. MS/ Extremity: Pulses equal, no cyanosis. Neurovascular intact. Full, normal range of motion. Neuro: Awake and alert, GCS 15, oriented to person, place, time, and situation. Cranial nerves II-XII grossly intact. Motor strength 5/5 in all extremities. Sensory grossly intact. Psych: Awake, alert, with orientation to person, place and time. Behavior, mood, and affect are within normal limits Vital Signs: 04:46 BP 133 / 86; Pulse 116; Resp 18; Temp 97.4(O); Pulse Ox 100% on R/A; Weight 64.5 kg jb4 (M); Height 5 ft. 1 in. ; Pain 9/10; 06:05 BP 114 / 84; Pulse 104; Resp 16; Pulse Ox 100% on R/A; jb4 06:30 BP 107 / 66; Pulse 85; Resp 16; Pulse Ox 99% on R/A; jb4 04:46 Body Mass Index 26.87 (64.50 kg, 154.94 cm) jb4 04:46 Pain Scale: Adult jb4 MDM: 04:28 Patient medically screened. sp4 06:39 ED course: TECHNIQUE: Non contrast CT of the abdomen and pelvis with coronal and sp4 sagittal reformats. All CT scans at this facility use dose modulation, iterative reconstruction, and/or weight based dosing when appropriate to reduce radiation dose to as low as reasonably achievable. COMPARISON: None. FINDINGS: Lower chest: Lung bases are clear. Abdomen/Pelvis: Liver: Unremarkable. Gallbladder: Fluid and gas within the gallbladder fossa with significantly decreased amount of gas compared to prior study. Pancreas: Within normal limits. Spleen: Within normal limits. Kidney: A 2 mm nonobstructing stone in the right kidney. Adrenal glands: Within normal limits. Vascular structures: Unremarkable. Bowel: No bowel distention. Appendix: Normal. Peritoneum: No free fluid or free air. Lymph Nodes: No lymphadenopathy. Reproductive: Unremarkable. Urinary bladder: Unremarkable. Osseous structures: Unremarkable. Soft tissues: Small fat-containing periumbilical hernia.. IMPRESSION: 1. Fluid and gas within the gallbladder fossa with significantly decreased amount of gas compared to prior study. 2. A 2 mm nonobstructing stone in the right kidney. . 06:47 Differential diagnosis: Anxiety Reaction pneumonia, Psychogenic Sepsis. Data reviewed: sp4 vital signs, old medical records, lab test result(s), radiologic studies, CT scan. ED course: Patient's CT reveals that gallbladder fossa fluid collection has improved. Patient's postop incisions look clean and dry. Patient CT revealed no emergent abnormality. Patient will be advised clear liquid diet for the next 24 hours as needed Phenergan for nausea Tylenol as needed for pain. Advised against opiates. . 12/19 04:47 Order name: CBC with Diff; Complete Time: 06:15 sp4 12/19 04:47 Order name: CMP; Complete Time: 06:15 sp4 12/19 04:47 Order name: Lipase; Complete Time: 06:15 sp4 12/19 04:47 Order name: CT Abd/Pelvis - Without Contrast sp4 12/19 04:47 Order name: IV Saline Lock; Complete Time: 05:29 sp4 12/19 04:47 Order name: Labs collected and sent; Complete Time: 05:29 sp4 Administered Medications: 04:50 Not Given (Allergic to medd): TORadol - Ketorolac IVP 30 mg IVP once jb4 05:25 Drug: NS 0.9% IV 1000 ml Route: IV; Rate: 1 bolus; Site: right forearm; jb4 05:25 Drug: Famotidine IVP 20 mg Route: IVP; Site: right forearm; jb4 05:25 Drug: Ondansetron IVP 8 mg Route: IVP; Site: right forearm; jb4 05:25 Drug: morphine IVP or IV 4 mg Route: IVP; Infused Over: 4 mins; Site: left forearm; jb4 06:05 Drug: Promethazine IM 25 mg Route: IM; Site: left gluteus; jb4 06:54 Drug: Acetaminophen PO 650 mg Route: PO; jb4 Disposition Summary: 12/19/22 06:49 Discharge Ordered Location: Home sp4 Problem: new sp4 Symptoms: have improved sp4 Condition: Stable sp4 Diagnosis - Nausea with vomiting, unspecified sp4 - Acute postoperative pain, diffuse abdominal pain, anxiety, nausea vomiting and sp4 diarrhea Followup: sp4 - With: Edgar Lora MD - When: 7 - 10 days - Reason: Recheck today's complaints Discharge Instructions: - Discharge Summary Sheet sp4 - Vomiting, Adult sp4 Forms: - Patient Portal Instructions sp4 Prescriptions: - promethazine 25 mg Oral Tablet - take 1 tablet by ORAL route every 6 hours As needed PRN nausea; 30 tablet; sp4 Refills: 0, Product Selection Permitted Signatures: Dispatcher [employer] Joss Caicedo RN RN jb4 Brodie Mota MD MD sp4
--- NOTE | 2022-12-19 06:50 | ER ---
Nurse's Notes [facility] Name: Natanael Dyson Age: 27 yrs Sex: Female : 1995 Arrival Date: 12/19/2022 Time: 04:16 Bed 6 Private MD: Diagnosis: Nausea with vomiting, unspecified;Acute postoperative pain, diffuse abdominal pain, anxiety, nausea vomiting and diarrhea Presentation: 12/19 04:46 Chief complaint: Patient states: I am having pain in my abdomen. It is worse when I jb4 breathe. I have been having N/V/D. I have been SOB since my surgery. Coronavirus screen: At this time, the client does not indicate any symptoms associated with coronavirus-19. Ebola Screen: No symptoms or risks identified at this time. Initial Sepsis Screen: Does the patient meet any 2 criteria? HR > 90 bpm. Yes Does the patient have a suspected source of infection? No. Patient's initial sepsis screen is negative. Risk Assessment: Do you want to hurt yourself or someone else? Patient reports no desire to harm self or others. Onset of symptoms was December 19, 2022. Transition of care: patient was not received from another setting of care. 04:46 Method Of Arrival: Ambulatory jb4 04:46 Acuity: THIERNO 3 jb4 Historical: - Allergies: 04:47 Reglan; jb4 04:47 Toradol; jb4 - PMHx: 04:47 Kidney stone; Anxiety; Depressive disorder; jb4 - PSHx: 04:47 Ligation of fallopian tube; Cholecystectomy; jb4 - Immunization history:: Adult Immunizations up to date. - Social history:: Smoking status: Patient denies any tobacco usage or history of. - Family history:: not pertinent. Screenin:48 [facility] ED Fall Risk Assessment (Adult) History of falling in the last 3 months, jb4 including since admission No falls in past 3 months (0 pts) Confusion or Disorientation No (0 pts). Abuse screen: Denies threats or abuse. Nutritional screening: No deficits noted. Tuberculosis screening: No symptoms or risk factors identified. Assessment: 04:48 General: Appears in no apparent distress. uncomfortable, Behavior is cooperative, jb4 crying. Pain: Complains of pain in right upper quadrant Pain does not radiate. Pain currently is 9 out of 10 on a pain scale. Neuro: Level of Consciousness is awake, alert, obeys commands, Oriented to person, place, time, situation. Cardiovascular: Patient's skin is warm and dry. Respiratory: Airway is patent Respiratory effort is even, unlabored, Respiratory pattern is regular, symmetrical. GI: Abdomen is flat, non-distended, Reports lower abdominal pain, upper abdominal pain, diarrhea, nausea, vomiting. : No signs and/or symptoms were reported regarding the genitourinary system. EENT: No signs and/or symptoms were reported regarding the EENT system. Derm: Skin is intact, Skin is pink, warm \T\ dry. Musculoskeletal: Circulation, motion, and sensation intact. Range of motion: intact in all extremities. 05:36 Reassessment: Patient appears in no apparent distress at this time. Patient and/or jb4 family updated on plan of care and expected duration. Pain level reassessed. Patient is alert, oriented x 3, equal unlabored respirations, skin warm/dry/pink. 07:07 Reassessment: Patient appears in no apparent distress at this time. Patient and/or jb4 family updated on plan of care and expected duration. Pain level reassessed. Patient is alert, oriented x 3, equal unlabored respirations, skin warm/dry/pink. Vital Signs: 04:46 BP 133 / 86; Pulse 116; Resp 18; Temp 97.4(O); Pulse Ox 100% on R/A; Weight 64.5 kg jb4 (M); Height 5 ft. 1 in. ; Pain 9/10; 06:05 BP 114 / 84; Pulse 104; Resp 16; Pulse Ox 100% on R/A; jb4 06:30 BP 107 / 66; Pulse 85; Resp 16; Pulse Ox 99% on R/A; jb4 04:46 Body Mass Index 26.87 (64.50 kg, 154.94 cm) jb4 04:46 Pain Scale: Adult jb4 ED Course: 04:19 Patient arrived in ED. jj6 04:20 Brodie Mota MD is Attending Physician. sp4 04:46 Joss Moffett, ROSEY is Primary Nurse. jb4 04:47 Triage completed. jb4 04:47 Arm band placed on right wrist. jb4 04:48 Patient has correct armband on for positive identification. Bed in low position. Call jb4 light in reach. Side rails up X 1. 05:48 CT Abd/Pelvis - Without Contrast In Process Unspecified. EDMS 06:30 No provider procedures requiring assistance completed. IV discontinued, intact, jb4 bleeding controlled, No redness/swelling at site. Pressure dressing applied. 06:48 Edgar Lora MD is Referral Physician. sp4 Administered Medications: 04:50 Not Given (Allergic to medd): TORadol - Ketorolac IVP 30 mg IVP once jb4 05:25 Drug: NS 0.9% IV 1000 ml Route: IV; Rate: 1 bolus; Site: right forearm; jb4 05:25 Drug: Famotidine IVP 20 mg Route: IVP; Site: right forearm; jb4 05:25 Drug: Ondansetron IVP 8 mg Route: IVP; Site: right forearm; jb4 05:25 Drug: morphine IVP or IV 4 mg Route: IVP; Infused Over: 4 mins; Site: left forearm; jb4 06:05 Drug: Promethazine IM 25 mg Route: IM; Site: left gluteus; jb4 06:54 Drug: Acetaminophen PO 650 mg Route: PO; jb4 Medication: 04:48 VIS not applicable for this client. jb4 Outcome: 06:49 Discharge ordered by . sp4 07:08 Discharged to home via wheelchair. jb4 07:08 Condition: stable 07:08 Discharge instructions given to patient, Instructed on discharge instructions, follow up and referral plans. medication usage, Demonstrated understanding of instructions, follow-up care, medications, Prescriptions given X 1. 07:08 Patient left the ED. jb4 Signatures: Dispatcher [employer] EDMS Joss Moffett, RN RN jb4 Gisela Trujillo jj6 Brodie Mota MD MD sp4
[2022-12-19] MEDS ORDERED: ACETAMINOPHEN 325 MG TABLET ONE (07:01)
[2022-12-19 07:14] VITALS: TEMP 97.4
[2022-12-19 07:17] VITALS: BP 107/66; O2SAT 99
--- NOTE | 2022-12-19 14:08 | RAD REPORT ---
EXAM DESCRIPTION: CT - Abdomen Pelvis Wo Contrast - 12/19/2022 7:06 am CLINICAL HISTORY: 27 years Female ABD PAIN TECHNIQUE: Non contrast CT of the abdomen and pelvis with coronal and sagittal reformats. All CT sca ns at this facility use dose modulation, iterative reconstruction, and/or weight based dosing when ap propriate to reduce radiation dose to as low as reasonably achievable. COMPARISON: None. FINDINGS: Lower chest: Lung bases are clear. Abdomen/Pelvis: Liver: Unremarkable. Gallbladder: Fluid and gas within the gallbladder fossa with significantly decreased amount of gas co mpared to prior study. Pancreas: Within normal limits. Spleen: Within normal limits. Kidney: A 2 mm nonobstructing stone in the right kidney. Adrenal glands: Within normal limits. Vascular structures: Unremarkable. Bowel: No bowel distention. Appendix: Normal. Peritoneum: No free fluid or free air. Lymph Nodes: No lymphadenopathy. Reproductive: Unremarkable. Urinary bladder: Unremarkable. Osseous structures: Unremarkable. Soft tissues: Small fat-containing periumbilical hernia.. IMPRESSION: 1. Fluid and gas within the gallbladder fossa with significantly decreased amount of gas compared to prior study. 2. A 2 mm nonobstructing stone in the right kidney. Electronically signed by: Elian Arroyo MD 12/19/2022 6:26 AM CDT Due to temporary technical issues with the PACS/Fluency reporting system, reports are being signed by the in house radiologist without review as a courtesy to ensure prompt reporting. The interpreting r adiologist is fully responsible for the content of the report.
== END 2022-12-19 07:08 | disposition home or self-care (01) ==
LOC: ER 04:16
DX: R11.2 Nausea with vomiting, unspecified (principal); G89.18 Other acute postprocedural pain; F41.9 Anxiety disorder, unspecified; R19.7 Diarrhea, unspecified; Z90.49 Acquired absence of other specified parts of digestive tract; Z88.5 Allergy status to narcotic agent; Z88.8 Allergy status to other drugs, medicaments and biological substances
CPT/HCPCS: 85025; 36415; 83690; 80053; 74176; J2550; J2405; J7030

== ENCOUNTER 2022-12-27 10:46 | Emergency (ER) | payer OTHER ==
--- OUTSIDE RECORDS SUMMARY | 2022-12-27 11:04 | XMS REPORT | Continuity of Care Document ---
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 methylPREDN 2023-0 Yes [id number] Take by [facility] ISolone 2-11 mouth ity of (MEDROL, 00:00: SEE-INSTRU [place],) 4 mg 00 CTIONS. Medica l tablets follow Branch package directions methylPREDN 2023-0 Yes [id number] Take by [facility] ISolone 2-11 mouth ity of (MEDROL, 00:00: SEE-INSTRU [place],) 4 mg 00 CTIONS. Medica l tablets follow Branch package directions methylPREDN 2023-0 Yes [id number] Take by [facility] ISolone 2-11 mouth ity of (MEDROL, 00:00: SEE-INSTRU [place],) 4 mg 00 CTIONS. Medica l tablets follow Branch package directions methylPREDN 2023-0 Yes [id number] Take by [facility] ISolone 2-11 mouth ity of (MEDROL, 00:00: SEE-INSTRU [place],) 4 mg 00 CTIONS. Medica l tablets follow Branch package directions methylPREDN 2023-0 Yes [id number] Take by [facility] ISolone 2-11 mouth ity of (MEDROL, 00:00: SEE-INSTRU [place],) 4 mg 00 CTIONS. Medica l tablets follow Branch package directions methylPREDN 2023-0 Yes [id number] Take by [facility] ISolone 2-11 mouth ity of (MEDROL, 00:00: SEE-INSTRU [place]A,) 4 mg 00 CTIONS. Medica l tablets follow Branch package directions methylPREDN 2023-0 Yes [id number] Take by [facility] ISolone 2-11 mouth ity of (MEDROL, 00:00: SEE-INSTRU [place],) 4 mg 00 CTIONS. Medica l tablets follow Branch package directions methylPREDN 2023-0 Yes [id number] Take by [facility] ISolone 2-11 mouth ity of (MEDROL, 00:00: SEE-INSTRU [place],) 4 mg 00 CTIONS. Medica l tablets follow Branch package directions methylPREDN 2023-0 Yes [id number] Take by [facility] ISolone 2-11 mouth ity of (MEDROL, 00:00: SEE-INSTRU [place],) 4 mg 00 CTIONS. Medica l tablets follow Branch package directions methylPREDN Yes [id number] Take by [facility] ISolone 06-23 mouth ity of (MEDROL, 00:00: SEE-INSTRU [place] ANA[place]ELA,) 4 mg 00 CTIONS. Medica l tablets follow Branch package directions bromphenira 2022- No [id number] 5mL Take 5 mL Univers mine-pseudo 06-23 by mouth 4 i ty of ephedrine-D 00:00: 05:59 (four) [place] as M (BROMFED 00 :00 times Medical DM) 230-10 daily as Bran ch mg/5 mL needed for syrup Cold symptoms for up to 10 days. methocarbam 2022- No [id number] 750mg Take 1 [facility] oL 750 mg 06-23 [id number] tablet by it y of tablet 00:00: [...] [place] butalbital- 2021-05- No 1{tbl} 1 tablet, [facility] acetaminoph 07-06- Oral, ity of en-caff 20:15: 20:56 ONCE, 1 [place] (ESGIC) 00 :00 dose, On Medical 50-325-40 [...] 05/05/22 at 1315, Routine butalbital- 2021-05 Yes [id number] 1{tbl} Take 1 [facility] acetaminoph 2-24 tablet by ity of en-caff 00:00: mouth [place] 50-325-40 00 every 4 Medical mg tablet (four) Branch hours as needed for Pain (scale 7-10). butalbital- 2021-05 Yes [id number] 1{tbl} Take 1 [facility] acetaminoph 2-24 tablet by ity of en-caff 00:00: mouth [place] 50-325-40 00 every 4 Medical mg tablet (four) Branch hours as needed for Pain (scale 7-10). butalbital- 2021-05 Yes [id number] 1{tbl} Take 1 [facility] acetaminoph 2-24 tablet by ity of en-caff 00:00: mouth [place] 50-325-40 00 every 4 Medical mg tablet (four) Branch hours as needed for Pain (scale 7-10). butalbital- 2021-05 Yes [id number] 1{tbl} Take 1 [facility] acetaminoph 2-24 tablet by ity of en-caff 00:00: mouth [place] 50-325-40 00 every 4 Medical mg tablet (four) Branch hours as needed for Pain (scale 7-10). butalbital- 2021-05 Yes [id number] 1{tbl} Take 1 [facility] acetaminoph 2-24 tablet by ity of en-caff 00:00: mouth [place] 50-325-40 00 every 4 Medical mg tablet (four) Branch hours as needed for Pain (scale 7-10). butalbital- 2021-05 Yes [id number] 1{tbl} Take 1 [facility] acetaminoph 2-24 tablet by ity of en-caff 00:00: mouth [place] 50-325-40 00 every 4 Medical mg tablet (four) Branch hours as needed for Pain (scale 7-10). butalbital- 2021-05 Yes [id number] 1{tbl} Take 1 [facility] acetaminoph 2-24 tablet by ity of en-caff 00:00: mouth [place] 50-325-40 00 every 4 Medical mg tablet (four) Branch hours as needed for Pain (scale 7-10). butalbital2021-05 Yes [id number] 1{tbl} Take 1 [facility] acetaminoph 2-24 tablet by ity of en-caff 00:00: mouth [place] 50-325-40 00 every 4 Medical mg tablet (four) Branch hours as needed for Pain (scale 7-10). butalbital2021-05 Yes [id number] 1{tbl} Take 1 [facility] acetaminoph 2-24 tablet by ity of en-caff 00:00: mouth [place] 50-325-40 00 every 4 Medical mg tablet (four) Branch hours as needed for Pain (scale 7-10). butalbital2021-05 Yes [id number] 1{tbl} Take 1 [facility] acetaminoph 2-24 tablet by ity of en-caff 00:00: mouth [place] 50-325-40 00 every 4 Medical mg tablet (four) Branch hours as needed for Pain (scale 7-10). butalbital2021-05 Yes [id number] 1{tbl} Take 1 [facility] acetaminoph 2-24 tablet by ity of en-caff 00:00: mouth [place] 50-325-40 00 every 4 Medical mg tablet (four) Branch hours as needed for Pain (scale 7-10). butalbital2021-05 Yes [id number] 1{tbl} Take 1 [facility] acetaminoph 2-24 tablet by ity of en-caff 00:00: mouth [place] 50-325-40 00 every 4 Medical mg tablet (four) Branch hours as needed for Pain (scale 7-10). butalbital2021-05 Yes [id number] 1{tbl} Take 1 [facility] acetaminoph 2-24 tablet by ity of en-caff 00:00: mouth [place] 50-325-40 00 every 4 Medical mg tablet (four) Branch hours as needed for Pain (scale 7-10). butalbital2021-05 Yes [id number] 1{tbl} Take 1 [facility] acetaminoph 2-24 tablet by ity of en-caff 00:00: mouth [place] 50-325-40 00 every 4 Medical mg tablet (four) Branch hours as needed for Pain (scale 7-10). butalbital2021-05 Yes [id number] 1{tbl} Take 1 [facility] acetaminoph 2-24 tablet by ity of en-caff 00:00: mouth [place] 50-325-40 00 every 4 Medical mg tablet (four) Branch hours as needed for Pain (scale 7-10). butalbital2021-05 Yes [id number] 1{tbl} Take 1 [facility] acetaminoph 2-24 tablet [...] dose, On Medi yessi mg [facility] Branch 04/26/22 at 0845, Routine cephALEXin 2021-05 No [id number] 500mg Take 1 Univers (KEFLEX) 2-15 05-04 [...] Nausea and Vomiting (N/V). galcanezuma 2021-05 Yes [id number] 120mg inject 120 [facility] b-gnlm 1-28 mg under ity of prefilled 00:00: [place] (EMGALITY) 00 once every Med ical subcutaneou month. Branch s injection galcanezuma 2021-05 Yes [id number] 120mg inject 120 [facility] b-gnlm 1-28 mg under ity of prefilled 00:00: [place] (EMGALITY) 00 once every Med ical subcutaneou month. Branch s injection galcanezuma 2021-05 Yes [id number] 120mg inject 120 [facility] b-gnlm 1-28 mg under ity of prefilled 00:00: [place] (EMGALITY) 00 once every Med ical subcutaneou month. Branch s injection galcanezuma 2021-05 Yes [id number] 120mg inject 120 [facility] b-gnlm 1-28 mg under ity of prefilled 00:00: [place] (EMGALITY) 00 once every Med ical subcutaneou month. Branch s injection galcanezuma 2021-05 Yes [id number] 120mg inject 120 [facility] b-gnlm 1-28 mg under ity of prefilled 00:00: [place] (EMGALITY) 00 once every Med ical subcutaneou month. Branch s injection galcanezuma 2021-05 Yes [id number] 120mg inject 120 [facility] b-gnlm 1-28 mg under ity of prefilled 00:00: [place] (EMGALITY) 00 once every Med ical subcutaneou month. Branch s injection galcanezuma 2021-05 Yes [id number] 120mg inject 120 [facility] b-gnlm 1-28 mg under ity of prefilled 00:00: [place] (EMGALITY) 00 once every Med ical subcutaneou month. Branch s injection galcanezuma 2021-05 Yes [id number] 120mg inject 120 [facility] b-gnlm 1-28 mg under ity of prefilled 00:00: [place] (EMGALITY) 00 once every Med ical subcutaneou month. Branch s injection galcanezuma 2021-05 Yes [id number] 120mg inject 120 [facility] b-gnlm 1-28 mg under ity of prefilled 00:00: [place] (EMGALITY) 00 once every Med ical subcutaneou month. Branch s injection galcanezuma 2021-05 Yes [id number] 120mg inject 120 [facility] b-gnlm 1-28 mg under ity of prefilled 00:00: [place] (EMGALITY) 00 once every Med ical subcutaneou month. Branch s injection galcanezuma 2021-05 Yes [id number] 120mg inject 120 [facility] b-gnlm 1-28 mg under ity of prefilled 00:00: [place] (EMGALITY) 00 once every Med ical subcutaneou month. Branch s injection galcanezuma 2021-05 Yes [id number] 120mg inject 120 [facility] b-gnlm 1-28 mg under ity of prefilled 00:00: [place] (EMGALITY) 00 once every Med ical subcutaneou month. Branch s injection galcanezuma 2021-05 Yes [id number] 120mg inject 120 [facility] b-gnlm 1-28 mg under ity of prefilled 00:00: [place] (EMGALITY) 00 once every Med ical subcutaneou month. Branch s injection galcanezuma 2021-05 Yes [id number] 120mg inject 120 [facility] b-gnlm 1-28 mg under ity of prefilled 00:00: [place] (EMGALITY) 00 once every Med ical subcutaneou month. Branch s injection galcanezuma 2021-05 Yes [id number] 120mg inject 120 [facility] b-gnlm 1-28 mg under ity of prefilled 00:00: [place] (EMGALITY) 00 once every Med ical subcutaneou month. Branch s injection galcanezuma 2021-05 Yes [id number] 120mg inject 120 [facility] b-gnlm 1-28 mg under ity of prefilled 00:00: [place] (EMGALITY) 00 once every Med ical subcutaneou month. Branch s injection galcanezuma 2021-05 Yes [id number] 120mg inject 120 [facility] b-gnlm 1-28 mg under ity of prefilled 00:00: [place] (EMGALITY) 00 once every Med ical subcutaneou month. Branch s injection galcanezuma 2021-05 Yes [id number] 120mg inject 120 [facility] b-gnlm 1-28 mg under ity of prefilled 00:00: [place] (EMGALITY) 00 once every Med ical subcutaneou month. Branch s injection galcanezuma 2021-05 Yes [id number] 120mg inject 120 [facility] b-gnlm 1-28 mg under ity of prefilled 00:00: [place] (EMGALITY) 00 once every Med ical subcutaneou month. Branch s injection galcanezuma 2021-05 Yes [id number] 120mg inject 120 [facility] b-gnlm 1-28 mg under ity of prefilled 00:00: [place] (EMGALITY) 00 once every Med ical subcutaneou month. Branch s injection galcanezuma 2021-05 Yes [id number] 120mg inject 120 [facility] b-gnlm 1-28 mg under ity of prefilled 00:00: [place] (EMGALITY) 00 once every Med ical subcutaneou month. Branch s injection galcanezuma 2021-05 Yes [id number] 120mg inject 120 [facility] b-gnlm 1-28 mg under ity of prefilled 00:00: [place] (EMGALITY) 00 once every Med ical subcutaneou month. Branch s injection galcanezuma 2021-05 Yes [id number] 120mg inject 120 [facility] b-gnlm 1-28 mg under ity of prefilled 00:00: [place] (EMGALITY) 00 once every Med ical subcutaneou month. Branch s injection galcanezuma 2021-05 Yes [id number] 120mg inject 120 [facility] b-gnlm 1-28 mg under ity of prefilled 00:00: [place] (EMGALITY) 00 once every Med ical subcutaneou month. Branch s injection galcanezuma 2021-05 Yes [id number] 120mg inject 120 [facility] b-gnlm 1-28 mg under ity of prefilled 00:00: [place] (EMGALITY) 00 once every Med ical subcutaneou month. Branch s injection galcanezuma 2021-05 Yes [id number] 120mg inject 120 [facility] b-gnlm 1-28 mg under ity of prefilled 00:00: [place] (EMGALITY) 00 once every Med ical subcutaneou month. Branch s injection galcanezuma 2021-05 Yes [id number] 120mg inject 120 [facility] b-gnlm 1-28 mg under ity of prefilled 00:00: [place] (EMGALITY) 00 once every Med ical subcutaneou month. Branch s injection galcanezuma 2021-05 Yes [id number] 120mg inject 120 [facility] b-gnlm 1-28 mg under ity of prefilled 00:00: [place] (EMGALITY) 00 once every Med ical subcutaneou month. Branch s injection galcanezuma 2021-05 Yes [id number] 120mg inject 120 [facility] b-gnlm 1-28 mg under ity of prefilled 00:00: [place] (EMGALITY) 00 once every Med ical subcutaneou month. Branch s injection galcanezuma 2021-05 Yes [id number] 120mg inject 120 [facility] b-gnlm 1-28 mg under ity of prefilled 00:00: [place] (EMGALITY) 00 once every Med ical subcutaneou month. Branch s injection galcanezuma 2021-05 Yes [id number] 120mg inject 120 [facility] b-gnlm 1-28 mg under ity of prefilled 00:00: [place] (EMGALITY) 00 once every Med ical subcutaneou month. Branch s injection methocarbam 2021-05 Yes 1000mg 1,000 mg, [facility] oL 06-08 Intravenou ity of (ROBAXIN) 04:00: s, Q8H, [place] injection 00 First dose Medi yessi 1,000 mg on Sat [place] 04/07/22 at 2200, Until Discontinu ed, Routine [...] 13 :00 Medical Branch rizatriptan 2021-05 Yes [id number] 10mg Take 1 [facility] 10 mg 1-12 tablet by ity of tablet 00:00: mouth as [place] 00 needed for Medical Migraine. Branch May repeat in 2 hours if needed Butalbital- 2021-05 Yes [id number] 1{capsu Take 1 [facility] Acetaminoph 1-12 le} [...] daily. Indication s: headache rizatriptan 2021-05 Yes [id number] 10mg Take 1 [facility] 10 mg 1-12 tablet by ity of tablet 00:00: mouth as [place] 00 needed for Medical Migraine. Branch May repeat in 2 hours if needed Butalbital- 2021-05 Yes [id number] 1{capsu Take 1 [facility] Acetaminoph 1-12 le} [...] daily. Indication s: headache rizatriptan 2021-05 Yes [id number] 10mg Take 1 [facility] 10 mg 1-12 tablet by ity of tablet 00:00: mouth as [place] 00 needed for Medical Migraine. Branch May repeat in 2 hours if needed Butalbital- 2021-05 Yes [id number] 1{capsu Take 1 [facility] Acetaminoph 1-12 le} [...] daily. Indication s: headache rizatriptan 2021-05 Yes [id number] 10mg Take 1 [facility] 10 mg 1-12 tablet by ity of tablet 00:00: mouth as [place] 00 needed for Medical Migraine. Branch May repeat in 2 hours if needed Butalbital- 2021-05 Yes [id number] 1{capsu Take 1 [facility] Acetaminoph 1-12 le} capsule by it y of en-Caff 00:00: mouth [place] (FIORICET) 00 every 6 Medica l 50-300-40 (six) Branch mg per hours as capsule needed for Other (headache) . rizatriptan 2021-05 Yes [id number] 10mg Take 1 [facility] 10 mg 1-12 tablet by ity of tablet 00:00: mouth as [place] 00 needed for Medical Migraine. Branch May repeat in 2 hours if needed Butalbital- 2021-05 Yes [id number] 1{capsu Take 1 [facility] Acetaminoph 1-12 le} capsule by it y of en-Caff 00:00: mouth [place] (FIORICET) 00 every 6 Medica l 50-300-40 (six) Branch mg per hours as capsule needed for Other (headache) . rizatriptan 2021-05 Yes [id number] 10mg Take 1 [facility] 10 mg 1-12 tablet by ity of tablet 00:00: mouth as [place] 00 needed for Medical Migraine. Branch May repeat in 2 hours if needed Butalbital- 2021-05 Yes [id number] 1{capsu Take 1 [facility] Acetaminoph 1-12 le} capsule by it y of en-Caff 00:00: mouth [place] (FIORICET) 00 every 6 Medica l 50-300-40 (six) Branch mg per hours as capsule needed for Other (headache) . rizatriptan 2021-05 Yes [id number] 10mg Take 1 [facility] 10 mg 1-12 tablet by ity of tablet 00:00: mouth as [place] 00 needed for Medical Migraine. Branch May repeat in 2 hours if needed Butalbital- 2021-05 Yes [id number] 1{capsu Take 1 [facility] Acetaminoph 1-12 le} capsule by it y of en-Caff 00:00: mouth [place] (FIORICET) 00 every 6 Medica l 50-300-40 (six) Branch mg per hours as capsule needed for Other (headache) . rizatriptan 2021-05 Yes [id number] 10mg Take 1 [facility] 10 mg 1-12 tablet by ity of tablet 00:00: mouth as [place] 00 needed for Medical Migraine. Branch May repeat in 2 hours if needed Butalbital- 2021-05 Yes [id number] 1{capsu Take 1 [facility] Acetaminoph 1-12 le} capsule by it y of en-Caff 00:00: mouth [place] (FIORICET) 00 every 6 Medica l 50-300-40 (six) Branch mg per hours as capsule needed for Other (headache) . rizatriptan 2021-05 Yes [id number] 10mg Take 1 [facility] 10 mg 1-12 tablet by ity of tablet 00:00: mouth as [place] 00 needed for Medical Migraine. Branch May repeat in 2 hours if needed Butalbital- 2021-05 Yes [id number] 1{capsu Take 1 [facility] Acetaminoph 1-12 le} capsule by it y of en-Caff 00:00: mouth [place] (FIORICET) 00 every 6 Medica l 50-300-40 (six) Branch mg per hours as capsule needed for Other (headache) . rizatriptan 2021-05 Yes [id number] 10mg Take 1 [facility] 10 mg 1-12 tablet by ity of tablet 00:00: mouth as [place] 00 needed for Medical Migraine. Branch May repeat in 2 hours if needed Butalbital- 2021-05 Yes [id number] 1{capsu Take 1 [facility] Acetaminoph 1-12 le} capsule by it y of en-Caff 00:00: mouth [place] (FIORICET) 00 every 6 Medica l 50-300-40 (six) Branch mg per hours as capsule needed for Other (headache) . rizatriptan 2021-05 Yes [id number] 10mg Take 1 [facility] 10 mg 1-12 tablet by ity of tablet 00:00: mouth as [place] 00 needed for Medical Migraine. Branch May repeat in 2 hours if needed Butalbital- 2021-05 Yes [id number] 1{capsu Take 1 [facility] Acetaminoph 1-12 le} capsule by it y of en-Caff 00:00: mouth [place] (FIORICET) 00 every 6 Medica l 50-300-40 (six) Branch mg per hours as capsule needed for Other (headache) . rizatriptan 2021-05 Yes [id number] 10mg Take 1 [facility] 10 mg 1-12 tablet by ity of tablet 00:00: mouth as [place] 00 needed for Medical Migraine. Branch May repeat in 2 hours if needed Butalbital- 2021-05 Yes [id number] 1{capsu Take 1 [facility] Acetaminoph 1-12 le} capsule by it y of en-Caff 00:00: mouth [place] (FIORICET) 00 every 6 Medica l 50-300-40 (six) Branch mg per hours as capsule needed for Other (headache) . rizatriptan 2021-05 Yes [id number] 10mg Take 1 Univers 10 mg 1-12 tablet by ity of tablet 00:00: mouth as [place] 00 needed for Medical Migraine. Branch May repeat in 2 hours if needed Butalbital- 2021-05 Yes [id number] 1{capsu Take 1 Univers Acetaminoph 1-12 le} capsule by it y of en-Caff 00:00: mouth [place] (FIORICET) 00 every 6 Medica l 50-300-40 (six) Branch mg per hours as capsule needed for Other (headache) . rizatriptan 2021-05 Yes [id number] 10mg Take 1 [facility] 10 mg 1-12 tablet by ity of tablet 00:00: mouth as [place] 00 needed for Medical Migraine. Branch May repeat in 2 hours if needed Butalbital- 2021-05 Yes [id number] 1{capsu Take 1 [facility] Acetaminoph 1-12 le} capsule by it y of en-Caff 00:00: mouth [place] (FIORICET) 00 every 6 Medica l 50-300-40 (six) Branch mg per hours as capsule needed for Other (headache) . rizatriptan 2021-05 Yes [id number] 10mg Take 1 [facility] 10 mg 1-12 tablet by ity of tablet 00:00: mouth as [place] 00 needed for Medical Migraine. Branch May repeat in 2 hours if needed Butalbital- 2021-05 Yes [id number] 1{capsu Take 1 [facility] Acetaminoph 1-12 le} capsule by it y of en-Caff 00:00: mouth [place] (FIORICET) 00 every 6 Medica l 50-300-40 (six) Branch mg per hours as capsule needed for Other (headache) . rizatriptan 2021-05 Yes [id number] 10mg Take 1 [facility] 10 mg 1-12 tablet by ity of tablet 00:00: mouth as [place] 00 needed for Medical Migraine. Branch May repeat in 2 hours if needed Butalbital- 2021-05 Yes [id number] 1{capsu Take 1 Univers Acetaminoph 1-12 le} capsule by it y of en-Caff 00:00: mouth [place] (FIORICET) 00 every 6 Medica l 50-300-40 (six) Branch mg per hours as capsule needed for Other (headache) . rizatriptan 2021-05 Yes [id number] 10mg Take 1 [facility] 10 mg 1-12 tablet by ity of tablet 00:00: mouth as [place] 00 needed for Medical Migraine. Branch May repeat in 2 hours if needed Butalbital- 2021-05 Yes [id number] 1{capsu Take 1 [facility] Acetaminoph 1-12 le} capsule by it y of en-Caff 00:00: mouth [place] (FIORICET) 00 every 6 Medica l 50-300-40 (six) Branch mg per hours as capsule needed for Other (headache) . rizatriptan 2021-05 Yes [id number] 10mg Take 1 [facility] 10 mg 1-12 tablet by ity of tablet 00:00: mouth as [place] 00 needed for Medical Migraine. Branch May repeat in 2 hours if needed Butalbital- 2021-05 Yes [id number] 1{capsu Take 1 [facility] Acetaminoph 1-12 le} capsule by it y of en-Caff 00:00: mouth [place] (FIORICET) 00 every 6 Medica l 50-300-40 (six) Branch mg per hours as capsule needed for Other (headache) . rizatriptan 2021-05 Yes [id number] 10mg Take 1 [facility] 10 mg 1-12 tablet by ity of tablet 00:00: mouth as [place] 00 needed for Medical Migraine. Branch May repeat in 2 hours if needed Butalbital- 2021-05 Yes [id number] 1{capsu Take 1 [facility] Acetaminoph 1-12 le} capsule by it y of en-Caff 00:00: mouth [place] (FIORICET) 00 every 6 Medica l 50-300-40 (six) Branch mg per hours as capsule needed for Other (headache) . rizatriptan 2021-05 Yes [id number] 10mg Take 1 [facility] 10 mg 1-12 tablet by ity of tablet 00:00: mouth as [place] 00 needed for Medical Migraine. Branch May repeat in 2 hours if needed Butalbital- 2021-05 Yes [id number] 1{capsu Take 1 [facility] Acetaminoph 1-12 le} capsule by it y of en-Caff 00:00: mouth [place] (FIORICET) 00 every 6 Medica l 50-300-40 (six) Branch mg per hours as capsule needed for Other (headache) . rizatriptan 2021-05 Yes [id number] 10mg Take 1 [facility] 10 mg 1-12 tablet by ity of tablet 00:00: mouth as [place] 00 needed for Medical Migraine. Branch May repeat in 2 hours if needed Butalbital- 2021-05 Yes [id number] 1{capsu Take 1 [facility] Acetaminoph 1-12 le} capsule by it y of en-Caff 00:00: mouth [place] (FIORICET) 00 every 6 Medica l 50-300-40 (six) Branch mg per hours as capsule needed for Other (headache) . rizatriptan 2021-05 Yes [id number] 10mg Take 1 [facility] 10 mg 1-12 tablet by ity of tablet 00:00: mouth as [place] 00 needed for Medical Migraine. Branch May repeat in 2 hours if needed Butalbital- 2021-05 Yes [id number] 1{capsu Take 1 [facility] Acetaminoph 1-12 le} capsule by it y of en-Caff 00:00: mouth [place] (FIORICET) 00 every 6 Medica l 50-300-40 (six) Branch mg per hours as capsule needed for Other (headache) . rizatriptan 2021-05 Yes [id number] 10mg Take 1 [facility] 10 mg 1-12 tablet by ity of tablet 00:00: mouth as [place] 00 needed for Medical Migraine. Branch May repeat in 2 hours if needed Butalbital- 2021-05 Yes [id number] 1{capsu Take 1 [facility] Acetaminoph 1-12 le} capsule by it y of en-Caff 00:00: mouth [place] (FIORICET) 00 every 6 Medica l 50-300-40 (six) Branch mg per hours as capsule needed for Other (headache) . rizatriptan 2021-05 Yes [id number] 10mg Take 1 [facility] 10 mg 1-12 tablet by ity of tablet 00:00: mouth as [place] 00 needed for Medical Migraine. Branch May repeat in 2 hours if needed Butalbital- 2021-05 Yes [id number] 1{capsu Take 1 [facility] Acetaminoph 1-12 le} capsule by it y of en-Caff 00:00: mouth [place] (FIORICET) 00 every 6 Medica l 50-300-40 (six) Branch mg per hours as capsule needed for Other (headache) . rizatriptan 2021-05 Yes [id number] 10mg Take 1 [facility] 10 mg 1-12 tablet by ity of tablet 00:00: mouth as [place] 00 needed for Medical Migraine. Branch May repeat in 2 hours if needed Butalbital- 2021-05 Yes [id number] 1{capsu Take 1 [facility] Acetaminoph 1-12 le} capsule by it y of en-Caff 00:00: mouth [place] (FIORICET) 00 every 6 Medica l 50-300-40 (six) Branch mg per hours as capsule needed for Other (headache) . rizatriptan 2021-05 Yes [id number] 10mg Take 1 [facility] 10 mg 1-12 tablet by ity of tablet 00:00: mouth as [place] 00 needed for Medical Migraine. Branch May repeat in 2 hours if needed Butalbital- 2021-05 Yes [id number] 1{capsu Take 1 [facility] Acetaminoph 1-12 le} capsule by it y of en-Caff 00:00: mouth [place] (FIORICET) 00 every 6 Medica l 50-300-40 (six) Branch mg per hours as capsule needed for Other (headache) . rizatriptan 2021-05 Yes [id number] 10mg Take 1 [facility] 10 mg 1-12 tablet by ity of tablet 00:00: mouth as [place] 00 needed for Medical Migraine. Branch May repeat in 2 hours if needed Butalbital- 2021-05 Yes [id number] 1{capsu Take 1 [facility] Acetaminoph 1-12 le} capsule by it y of en-Caff 00:00: mouth [place] (FIORICET) 00 every 6 Medica l 50-300-40 (six) Branch mg per hours as capsule needed for Other (headache) . rizatriptan 2021-05 Yes [id number] 10mg Take 1 [facility] 10 mg 1-12 tablet by ity of tablet 00:00: mouth as [place] 00 needed for Medical Migraine. Branch May repeat in 2 hours if needed Butalbital- 2021-05 Yes [id number] 1{capsu Take 1 [facility] Acetaminoph 1-12 le} capsule by it y of en-Caff 00:00: mouth [place] (FIORICET) 00 every 6 Medica l 50-300-40 (six) Branch mg per hours as capsule needed for Other (headache) . rizatriptan 2021-05 Yes [id number] 10mg Take 1 [facility] 10 mg 1-12 tablet by ity of tablet 00:00: mouth as [place] 00 needed for Medical Migraine. Branch May repeat in 2 hours if needed Butalbital- 2021-05 Yes [id number] 1{capsu Take 1 [facility] Acetaminoph 1-12 le} capsule by it y of en-Caff 00:00: mouth [place] (FIORICET) 00 every 6 Medica l 50-300-40 (six) Branch mg per hours as capsule needed for Other (headache) . rizatriptan 2021-05 Yes [id number] 10mg Take 1 [facility] 10 mg 1-12 tablet by ity of tablet 00:00: mouth as [place] 00 needed for Medical Migraine. Branch May repeat in 2 hours if needed Butalbital- 2021-05 Yes [id number] 1{capsu Take 1 [facility] Acetaminoph 1-12 le} capsule by it y of en-Caff 00:00: mouth [place] (FIORICET) 00 every 6 Medica l 50-300-40 (six) Branch mg per hours as capsule needed for Other (headache) . rizatriptan 2021-05 Yes [id number] 10mg Take 1 [facility] 10 mg 1-12 tablet by ity of tablet 00:00: mouth as [place] 00 needed for Medical Migraine. Branch May repeat in 2 hours if needed Butalbital- 2021-05 Yes [id number] 1{capsu Take 1 [facility] Acetaminoph 1-12 le} capsule by it y of en-Caff 00:00: mouth [place] (FIORICET) 00 every 6 Medica l 50-300-40 (six) Branch mg per hours as capsule needed for Other (headache) . rizatriptan 2021-05 Yes [id number] 10mg Take 1 [facility] 10 mg 1-12 tablet by ity of tablet 00:00: mouth as [place] 00 needed for Medical Migraine. Branch May repeat in 2 hours if needed Butalbital- 2021-05 Yes [id number] 1{capsu Take 1 [facility] Acetaminoph 1-12 le} capsule by it y of en-Caff 00:00: mouth [place] (FIORICET) 00 every 6 Medica l 50-300-40 (six) Branch mg per hours as capsule needed for Other (headache) . rizatriptan 2021-05 Yes [id number] 10mg Take 1 [facility] 10 mg 1-12 tablet by ity of tablet 00:00: mouth as [place] 00 needed for Medical Migraine. Branch May repeat in 2 hours if needed Butalbital- 2021-05 Yes [id number] 1{capsu Take 1 [facility] Acetaminoph 1-12 le} capsule by it y of en-Caff 00:00: mouth [place] (FIORICET) 00 every 6 Medica l 50-300-40 (six) Branch mg per hours as capsule needed for Other (headache) . rizatriptan 2021-05 Yes [id number] 10mg Take 1 [facility] 10 mg 1-12 tablet by ity of tablet 00:00: mouth as [place] 00 needed for Medical Migraine. Branch May repeat in 2 hours if needed Butalbital- 2021-05 Yes [id number] 1{capsu Take 1 [facility] Acetaminoph 1-12 le} capsule by it y of en-Caff 00:00: mouth [place] (FIORICET) 00 every 6 Medica l 50-300-40 (six) Branch mg per hours as capsule needed for Other (headache) . rizatriptan 2021-05 Yes [id number] 10mg Take 1 [facility] 10 mg 1-12 tablet by ity of tablet 00:00: mouth as [place] 00 needed for Medical Migraine. Branch May repeat in 2 hours if needed Butalbital- 2021-05 Yes [id number] 1{capsu Take 1 [facility] Acetaminoph 1-12 le} [...] 50 mcg dose, On Branch [facility] 03/15/22 at 1030, Routine proMETHazin 2021-05- No 25mg 25 mg, Uni vers e 05-15 Oral, ity of (PHENERGAN) 14:45: 14:55 ONCE, 1 [place] 25 00 :00 dose, On Medica l mg [facility] 03/15/22 at 0945, [place] FENTanyl PF 2021-05- No 50ug 50 mcg, Un sushant (SUBLIMAZE 05-15 Slow IV ity o f (PF)) 14:45: 13:58 Push, [place] injection 00 :00 ONCE, 1 Medical 50 mcg dose, On Branch [facility] 03/15/22 at 0945, Routine ondansetron 2021-05- No 4mg 4 mg, Slow Univers (ZOFRAN 05-15 IV Push, ity of (PF)) 14:00: 13:58 ONCE, 1 [place] injection 4 00 :00 dose, On Medi yessi mg [facility] 03/15/22 at 0900, [place] ondansetron 2021-05 Yes [id number] 4mg Take 1 [facility] 4 mg -03 tablet by ity of disintegrat 00:00: mouth [place] ing tablet 00 every 8 Medica l (eight) Branch hours as needed for Nausea and Vomiting (N/V). ketorolac 2021-05 Yes [id number] 10mg Take 1 U nivers 10 mg 1-03 tablet by ity of tablet 00:00: mouth [place] 00 every 6 Medical (six) Branch hours as needed for Pain (scale 7-10). proMETHazin 2021-05 Yes [id number] 25mg Take 1 Univers e 25 mg 1-03 tablet by ity of tablet 00:00: mouth [place] 00 every 6 Medical (six) Branch hours as needed for N/V unresponsi ve to Ondansetro n. ondansetron 2021-05 Yes [id number] 4mg Take 1 [facility] 4 mg 1-03 tablet by ity of disintegrat 00:00: mouth [place] ing tablet 00 every 8 Medica l (eight) Branch hours as needed for Nausea and Vomiting (N/V). ketorolac 2021-05 Yes [id number] 10mg Take 1 U nivers 10 mg 1-03 tablet by ity of tablet 00:00: mouth [place] 00 every 6 Medical (six) Branch hours as needed for Pain (scale 7-10). proMETHazin 2021-05 Yes [id number] 25mg Take 1 Univers e 25 mg 1-03 tablet by ity of tablet 00:00: mouth [place] 00 every 6 Medical (six) Branch hours as needed for N/V unresponsi ve to Ondansetro n. carvediloL 2021-05 Yes [id number] 25mg Take 1 U nivers 25 mg 1-03 tablet by ity of tablet 00:00: mouth in [place] 00 the Medical morning Branch and 1 tablet in the evening. Take with meals. ondansetron 2021-05 Yes [id number] 4mg Take 1 [facility] 4 mg 1-03 tablet by ity of disintegrat 00:00: mouth [place] ing tablet 00 every 8 Medica l (eight) Branch hours as needed for Nausea and Vomiting (N/V). ketorolac 2021-05 Yes [id number] 10mg Take 1 U nivers 10 mg 1-03 tablet by ity of tablet 00:00: mouth [place] 00 every 6 Medical (six) Branch hours as needed for Pain (scale 7-10). proMETHazin 2021-05 Yes [id number] 25mg Take 1 Univers e 25 mg 1-03 tablet by ity of tablet 00:00: mouth [place] 00 every 6 Medical (six) Branch hours as needed for N/V unresponsi ve to Ondansetro n. carvediloL 2021-05 Yes [id number] 25mg Take 1 U nivers 25 mg 1-03 tablet by ity of tablet 00:00: mouth in [place] 00 the Medical morning Branch and 1 tablet in the evening. Take with meals. ondansetron 2021-05 Yes [id number] 4mg Take 1 [facility] 4 mg 1-03 tablet by ity of disintegrat 00:00: mouth [place] ing tablet 00 every 8 Medica l (eight) Branch hours as needed for Nausea and Vomiting (N/V). ketorolac 2021-05 Yes [id number] 10mg Take 1 U nivers 10 mg 1-03 tablet by ity of tablet 00:00: mouth [place] 00 every 6 Medical (six) Branch hours as needed for Pain (scale 7-10). proMETHazin 2021-05 Yes [id number] 25mg Take 1 Univers e 25 mg 1-03 tablet by ity of tablet 00:00: mouth [place] 00 every 6 Medical (six) Branch hours as needed for N/V unresponsi ve to Ondansetro n. carvediloL 2021-05 Yes [id number] 25mg Take 1 U nivers 25 mg 1-03 tablet by ity of tablet 00:00: mouth in [place] 00 the Medical morning Branch and 1 tablet in the evening. Take with meals. ondansetron 2021-05 Yes [id number] 4mg Take 1 [facility] 4 mg 1-03 tablet by ity of disintegrat 00:00: mouth [place] ing tablet 00 every 8 Medica l (eight) Branch hours as needed for Nausea and Vomiting (N/V). ketorolac 2021-05 Yes [id number] 10mg Take 1 U nivers 10 mg 1-03 tablet by ity of tablet 00:00: mouth [place] 00 every 6 Medical (six) Branch hours as needed for Pain (scale 7-10). proMETHazin 2021-05 Yes [id number] 25mg Take 1 Univers e 25 mg 1-03 tablet by ity of tablet 00:00: mouth [place] 00 every 6 Medical (six) Branch hours as needed for N/V unresponsi ve to Ondansetro n. carvediloL 2021-05 Yes [id number] 25mg Take 1 U nivers 25 mg 1-03 tablet by ity of tablet 00:00: mouth in [place] 00 the Medical morning Branch and 1 tablet in the evening. Take with meals. ondansetron 2021-05 Yes [id number] 4mg Take 1 [facility] 4 mg 1-03 tablet by ity of disintegrat 00:00: mouth [place] ing tablet 00 every 8 Medica l (eight) Branch hours as needed for Nausea and Vomiting (N/V). ketorolac 2021-05 Yes [id number] 10mg Take 1 U nivers 10 mg 1-03 tablet by ity of tablet 00:00: mouth [place] 00 every 6 Medical (six) Branch hours as needed for Pain (scale 7-10). proMETHazin 2021-05 Yes [id number] 25mg Take 1 Univers e 25 mg 1-03 tablet by ity of tablet 00:00: mouth [place] 00 every 6 Medical (six) Branch hours as needed for N/V unresponsi ve to Ondansetro n. carvediloL 2021-05 Yes [id number] 25mg Take 1 U nivers 25 mg 1-03 tablet by ity of tablet 00:00: mouth in [place] 00 the Medical morning Branch and 1 tablet in the evening. Take with meals. ondansetron 2021-05 Yes [id number] 4mg Take 1 [facility] 4 mg 1-03 tablet by ity of disintegrat 00:00: mouth [place] ing tablet 00 every 8 Medica l (eight) Branch hours as needed for Nausea and Vomiting (N/V). ketorolac 2021-05 Yes [id number] 10mg Take 1 U nivers 10 mg 1-03 tablet by ity of tablet 00:00: mouth [place] 00 every 6 Medical (six) Branch hours as needed for Pain (scale 7-10). proMETHazin 2021-05 Yes [id number] 25mg Take 1 Univers e 25 mg 1-03 tablet by ity of tablet 00:00: mouth [place] 00 every 6 Medical (six) Branch hours as needed for N/V unresponsi ve to Ondansetro n. carvediloL 2021-05 Yes [id number] 25mg Take 1 U nivers 25 mg 1-03 tablet by ity of tablet 00:00: mouth in [place] 00 the Medical morning Branch and 1 tablet in the evening. Take with meals. ondansetron 2021-05 Yes [id number] 4mg Take 1 [facility] 4 mg 1-03 tablet by ity of disintegrat 00:00: mouth [place] ing tablet 00 every 8 Medica l (eight) Branch hours as needed for Nausea and Vomiting (N/V). ketorolac 2021-05 Yes [id number] 10mg Take 1 U nivers 10 mg 1-03 tablet by ity of tablet 00:00: mouth [place] 00 every 6 Medical (six) Branch hours as needed for Pain (scale 7-10). proMETHazin 2021-05 Yes [id number] 25mg Take 1 Univers e 25 mg 1-03 tablet by ity of tablet 00:00: mouth [place] 00 every 6 Medical (six) Branch hours as needed for N/V unresponsi ve to Ondansetro n. carvediloL 2021-05 Yes [id number] 25mg Take 1 U nivers 25 mg 1-03 tablet by ity of tablet 00:00: mouth in [place] 00 the Medical morning Branch and 1 tablet in the evening. Take with meals. ondansetron 2021-05 Yes [id number] 4mg Take 1 [facility] 4 mg 1-03 tablet by ity of disintegrat 00:00: mouth [place] ing tablet 00 every 8 Medica l (eight) Branch hours as needed for Nausea and Vomiting (N/V). ketorolac 2021-05 Yes [id number] 10mg Take 1 U nivers 10 mg 1-03 tablet by ity of tablet 00:00: mouth [place] 00 every 6 Medical (six) Branch hours as needed for Pain (scale 7-10). proMETHazin 2021-05 Yes [id number] 25mg Take 1 Univers e 25 mg 1-03 tablet by ity of tablet 00:00: mouth [place] 00 every 6 Medical (six) Branch hours as needed for N/V unresponsi ve to Ondansetro n. carvediloL 2021-05 Yes [id number] 25mg Take 1 U nivers 25 mg 1-03 tablet by ity of tablet 00:00: mouth in [place] 00 the Medical morning Branch and 1 tablet in the evening. Take with meals. ondansetron 2021-05 Yes [id number] 4mg Take 1 [facility] 4 mg 1-03 tablet by ity of disintegrat 00:00: mouth [place] ing tablet 00 every 8 Medica l (eight) Branch hours as needed for Nausea and Vomiting (N/V). ketorolac 2021-05 Yes [id number] 10mg Take 1 U nivers 10 mg 1-03 tablet by ity of tablet 00:00: mouth [place] 00 every 6 Medical (six) Branch hours as needed for Pain (scale 7-10). proMETHazin 2021-05 Yes [id number] 25mg Take 1 Univers e 25 mg 1-03 tablet by ity of tablet 00:00: mouth [place] 00 every 6 Medical (six) Branch hours as needed for N/V unresponsi ve to Ondansetro n. carvediloL 2021-05 Yes [id number] 25mg Take 1 U nivers 25 mg 1-03 tablet by ity of tablet 00:00: mouth in [place] 00 the Medical morning Branch and 1 tablet in the evening. Take with meals. carvediloL 2021-05 Yes [id number] 25mg Take 1 U nivers 25 mg 1-03 tablet by ity of tablet 00:00: mouth in [place] 00 the Medical morning Branch and 1 tablet in the evening. Take with meals. carvediloL 2021-05 Yes [id number] 25mg Take 1 U nivers 25 mg 1-03 tablet by ity of tablet 00:00: mouth in [place] 00 the Medical morning [place] and 1 tablet in the evening. Take with meals. carvediloL 2021-05 Yes [id number] 25mg Take 1 U nivers 25 mg 1-03 tablet by ity of tablet 00:00: mouth in [place] 00 the Medical morning [place] and 1 tablet in the evening. Take with meals. carvediloL 2021-05 Yes [id number] 25mg Take 1 U nivers 25 mg 1-03 tablet by ity of tablet 00:00: mouth in [place] 00 the Medical morning [place] and 1 tablet in the evening. Take with meals. carvediloL 2021-05 Yes [id number] 25mg Take 1 U nivers 25 mg 1-03 tablet by ity of tablet 00:00: mouth in [place] 00 the Medical morning Branch and 1 tablet in the evening. Take with meals. carvediloL 2021-05 Yes [id number] 25mg Take 1 U nivers 25 mg 1-03 tablet by ity of tablet 00:00: mouth in [place] [address] the [facility] morning [place] and 1 tablet in the evening. Take with meals. carvediloL 2021-05 Yes [id number] 25mg Take 1 U nivers 25 mg 1-03 tablet by ity of tablet 00:00: mouth in [place] 00 the [facility] morning [place] and 1 tablet in the evening. Take with meals. carvediloL 2021-05 Yes [id number] 25mg Take 1 U nivers 25 mg 1-03 tablet by ity of tablet 00:00: mouth in [place] [address] the Medical morning Branch and 1 tablet in the evening. Take with meals. carvediloL 2021-05 Yes [id number] 25mg Take 1 U nivers 25 mg 1-03 tablet by ity of tablet 00:00: mouth in [place] [address] the Medical morning Branch and 1 tablet in the evening. Take with meals. carvediloL 2021-05 Yes [id number] 25mg Take 1 U nivers 25 mg 1-03 tablet by ity of tablet 00:00: mouth in [place] [address] the Medical morning Branch and 1 tablet in the evening. Take with meals. carvediloL 2021-05 Yes [id number] 25mg Take 1 U nivers 25 mg 1-03 tablet by ity of tablet 00:00: mouth in [place] [address] the Medical morning Branch and 1 tablet in the evening. Take with meals. carvediloL 2021-05 Yes [id number] 25mg Take 1 U nivers 25 mg 1-03 tablet by ity of tablet 00:00: mouth in [place] [address] the Medical morning [place] and 1 tablet in the evening. Take with meals. carvediloL 2021-05 Yes [id number] 25mg Take 1 U nivers 25 mg 1-03 tablet by ity of tablet 00:00: mouth in [place] [address] the Medical morning [place] and 1 tablet in the evening. Take with meals. carvediloL 2021-05 Yes [id number] 25mg Take 1 U nivers 25 mg 1-03 tablet by ity of tablet 00:00: mouth in [place] [address] the Medical morning [place] and 1 tablet in the evening. Take with meals. carvediloL 2021-05 Yes [id number] 25mg Take 1 U nivers 25 mg 1-03 tablet by ity of tablet 00:00: mouth in [place] [address] the Medical morning [place] and 1 tablet in the evening. Take with meals. carvediloL 2021-05 Yes [id number] 25mg Take 1 U nivers 25 mg 1-03 tablet by ity of tablet 00:00: mouth in [place] [address] the Medical morning [place] and 1 tablet in the evening. Take with meals. carvediloL 2021-05 Yes [id number] 25mg Take 1 U nivers 25 mg 1-03 tablet by ity of tablet 00:00: mouth in [place] 00 the [facility] morning [place] and 1 tablet in the evening. Take with meals. carvediloL 2021-05 Yes [id number] 25mg Take 1 U nivers 25 mg 1-03 tablet by ity of tablet 00:00: mouth in [place] 00 the [facility] morning [place] and 1 tablet in the evening. Take with meals. carvediloL 2021-05 Yes [id number] 25mg Take 1 U nivers 25 mg 1-03 tablet by ity of tablet 00:00: mouth in [place] 00 the [facility] and 1 tablet in the evening. Take with meals. carvediloL 2021-05 Yes [id number] 25mg Take 1 U nivers 25 mg 1-03 tablet by ity of tablet 00:00: mouth in [place] 00 the [facility] and 1 tablet in the evening. Take with meals. carvediloL 2021-05 Yes [id number] 25mg Take 1 U nivers 25 mg 1-03 tablet by ity of tablet 00:00: mouth in [place] [address] the [facility] and 1 tablet in the evening. Take with meals. carvediloL 2021-05- No [id number] 25mg Take 1 Univers 25 mg 1-03 04-26 tablet by ity of tablet 00:00: 00:00 mouth in [place] 00 :00 the [facility] and 1 tablet in the evening. Take with meals. carvediloL 2021-05- No [id number] 25mg Take 1 [facility] 25 mg 1-03 04-26 tablet by ity of tablet 00:00: 00:00 mouth in [place] 00 :00 the [facility] and 1 tablet in the evening. Take with meals. ondansetron 2021-05- No [id number] 4mg Take 1 [facility] 4 mg 1-03 11-26 tablet by ity of disintegrat 00:00: 00:00 [place] tablet 00 :00 every 8 Medica l (eight) Branch hours as needed for Nausea and Vomiting (N/V). ketorolac 2021-05- No [id number] 10mg Take 1 [facility] 10 mg 1-03 11-26 tablet by ity of tablet 00:00: 00:00 mouth [place] 00 :00 every 6 Medical (six) Branch hours as needed for Pain (scale 7-10). proMETHazin 2021-05- No [id number] 25mg Take 1 Univers e 25 mg 05-15 tablet by ity of tablet 00:00: 00:00 mouth [place] 00 :00 every 6 Medical (six) Branch hours as needed for N/V unresponsi ve to Ondansetro n. cephALEXin 2021-05- No [id number] 500mg Take 1 [facility] 500 mg 05-15 capsule by ity of capsule 00:00: 05:59 mouth 4 [place] 00 :00 (four) Medical times [place] daily for 3 days. cephALEXin 2021-05- No [id number] 500mg Take 1 [facility] 500 mg 05-15 capsule by ity of capsule 00:00: 05:59 mouth 4 [place] 00 :00 (four) Medical times [place] daily for 3 days. cephALEXin 2021-05- No [id number] 500mg Take 1 [facility] 500 mg 05-15 capsule by ity of capsule 00:00: 05:59 mouth 4 [place] 00 :00 (four) Medical times [place] daily for 3 days. predniSONE 2021-05- No [id number] 20mg Take 1 Univers 20 mg 03-15 tablet by ity of tablet 00:00: 04:59 mouth in [place] 00 :00 the Medical morning Branch for 2 days. methocarbam 2021-05- No 500mg 500 mg, U nivers oL 0-30 10-30 Oral, ity of (ROBAXIN) 16:45: 17:08 ONCE, 1 [place] 00 :00 dose, On Medic al mg [facility] 03/11/22 at 1200, [place] dexamethaso 2021-05- No 10mg 10 mg, Uni vers ne sod phos 0-30 10-30 Slow IV ity of PF 16:00: 16:00 Push, [place] injection 00 :00 ONCE, 1 Medical 10 mg dose, On [facility] 03/11/22 at 1100, 1 mL diphenhydrA 2021-05- No 25mg 25 mg, Uni vers MINE 0-30 10-30 Slow IV ity of (BENADRYL) 15:46: 16:00 Push, [place] injection 00 :00 ONCE, 1 Medical 25 mg dose, On [facility] 03/11/22 at 1100, STAT NaCl [...] :00 ONCE, 1 Medical dose, On [facility] 03/11/22 at 0945, [place] proMETHazin 2021-05- No 12.5mg 12.5 mg, Univers e 0-30 10-30 IV ity of (PHENERGAN) 14:45: 15:04 [place], [place] 12.5 mg in 00 :00 ONCE, 1 Medica l NaCl 0.9% dose, On Branch (NS) 50 mL Sun IV 03/11/22 piggyback at 0945, [place] proMETHazin 2021-05 Yes [id number] 25mg Take 1 Univers e 25 mg 0-30 tablet by ity of tablet 00:00: mouth [place] 00 every 6 Medical (six) Branch hours as needed for Nausea and Vomiting (N/V). methocarbam 2021-05 Yes [id number] 500mg Take 1 Univers oL 500 mg 0-30 tablet by ity o f tablet 00:00: mouth 3 [place] 00 (three) Medical times Branch daily as needed for Pain (scale 7-10). proMETHazin 2021-05 Yes [id number] 25mg Take 1 Univers e 25 mg 0-30 tablet by ity of tablet 00:00: mouth [place] 00 every 6 Medical (six) Branch hours as needed for Nausea and Vomiting (N/V). methocarbam 2021-05 Yes [id number] 500mg Take 1 Univers oL 500 mg 0-30 tablet by ity o f tablet 00:00: mouth 3 [place] 00 (three) Medical times Branch daily as needed for Pain (scale 7-10). proMETHazin 2021-05 Yes [id number] 25mg Take 1 Univers e 25 mg 0-30 tablet by ity of tablet 00:00: mouth [place] 00 every 6 Medical (six) Branch hours as needed for Nausea and Vomiting (N/V). methocarbam 2021-05 Yes [id number] 500mg Take 1 Univers oL 500 mg 0-30 tablet by ity o f tablet 00:00: mouth 3 [place] 00 (three) Medical times Branch daily as needed for Pain (scale 7-10). proMETHazin 2021-05 Yes [id number] 25mg Take 1 Univers e 25 mg 0-30 tablet by ity of tablet 00:00: mouth [place] 00 every 6 Medical (six) Branch hours as needed for Nausea and Vomiting (N/V). methocarbam 2021-05 Yes [id number] 500mg Take 1 [facility] oL 500 mg 0-30 tablet by ity o f tablet 00:00: mouth 3 00 (three) Medical times Branch daily as needed for Pain (scale 7-10). proMETHazin 2021-05 Yes [id number] 25mg Take 1 Univers e 25 mg 0-30 tablet by ity of tablet 00:00: mouth [place] 00 every 6 Medical (six) Branch hours as needed for Nausea and Vomiting (N/V). methocarbam 2021-05 Yes [id number] 500mg Take 1 Univers oL 500 mg 0-30 tablet by ity o f tablet 00:00: mouth 3 [place] 00 (three) Medical times Branch daily as needed for Pain (scale 7-10). proMETHazin 2021-05 Yes [id number] 25mg Take 1 Univers e 25 mg 0-30 tablet by ity of tablet 00:00: mouth [place] 00 every 6 Medical (six) Branch hours as needed for Nausea and Vomiting (N/V). methocarbam 2021-05 Yes [id number] 500mg Take 1 Univers oL 500 mg 0-30 tablet by ity o f tablet 00:00: mouth 3 [place] 00 (three) Medical times Branch daily as needed for Pain (scale 7-10). proMETHazin 2021-05 Yes [id number] 25mg Take 1 Univers e 25 mg 0-30 tablet by ity of tablet 00:00: mouth [place] 00 every 6 Medical (six) Branch hours as needed for Nausea and Vomiting (N/V). methocarbam 2021-05 Yes [id number] 500mg Take 1 Univers oL 500 mg 0-30 tablet by ity o f tablet 00:00: mouth 3 [place] 00 (three) Medical times Branch daily as needed for Pain (scale 7-10). proMETHazin 2021-05 Yes [id number] 25mg Take 1 Univers e 25 mg 0-30 tablet by ity of tablet 00:00: mouth [place] 00 every 6 Medical (six) Branch hours as needed for Nausea and Vomiting (N/V). methocarbam 2021-05 Yes [id number] 500mg Take 1 Univers oL 500 mg 0-30 tablet by ity o f tablet 00:00: mouth 3 [place] 00 (three) Medical times Branch daily as needed for Pain (scale 7-10). proMETHazin 2021-05 Yes [id number] 25mg Take 1 Univers e 25 mg 0-30 tablet by ity of tablet 00:00: mouth [place] 00 every 6 Medical (six) Branch hours as needed for Nausea and Vomiting (N/V). methocarbam 2021-05 Yes [id number] 500mg Take 1 Univers oL 500 mg 0-30 tablet by ity o f tablet 00:00: mouth 3 [place] 00 (three) Medical times Branch daily as needed for Pain (scale 7-10). proMETHazin 2021-05 Yes [id number] 25mg Take 1 Univers e 25 mg 0-30 tablet by ity of tablet 00:00: mouth [place] 00 every 6 Medical (six) Branch hours as needed for Nausea and Vomiting (N/V). methocarbam 2021-05 Yes [id number] 500mg Take 1 Univers oL 500 mg 0-30 tablet by ity o f tablet 00:00: mouth 3 [place] 00 (three) Medical times Branch daily as needed for Pain (scale 7-10). proMETHazin 2021-05 Yes [id number] 25mg Take 1 Univers e 25 mg 0-30 tablet by ity of tablet 00:00: mouth [place] 00 every 6 Medical (six) Branch hours as needed for Nausea and Vomiting (N/V). methocarbam 2021-05 Yes [id number] 500mg Take 1 Univers oL 500 mg 0-30 tablet by ity o f tablet 00:00: mouth 3 [place] 00 (three) Medical times Branch daily as needed for Pain (scale 7-10). proMETHazin 2021-05 Yes [id number] 25mg Take 1 Univers e 25 mg 0-30 tablet by ity of tablet 00:00: mouth [place] 00 every 6 Medical (six) Branch hours as needed for Nausea and Vomiting (N/V). proMETHazin 2021-05 Yes [id number] 25mg Take 1 Univers e 25 mg 0-30 tablet by ity of tablet 00:00: mouth [place] 00 every 6 Medical (six) Branch hours as needed for Nausea and Vomiting (N/V). proMETHazin 2021-05 Yes [id number] 25mg Take 1 Univers e 25 mg 0-30 tablet by ity of tablet 00:00: mouth [place] 00 every 6 Medical (six) Branch hours as needed for Nausea and Vomiting (N/V). proMETHazin 2021-05 Yes [id number] 25mg Take 1 Univers e 25 mg 0-30 tablet by ity of tablet 00:00: mouth [place] 00 every 6 Medical (six) Branch hours as needed for Nausea and Vomiting (N/V). proMETHazin 2021-05 Yes [id number] 25mg Take 1 Univers e 25 mg 0-30 tablet by ity of tablet 00:00: mouth [place] 00 every 6 Medical (six) Branch hours as needed for Nausea and Vomiting (N/V). proMETHazin 2021-05 Yes [id number] 25mg Take 1 Univers e 25 mg 0-30 tablet by ity of tablet 00:00: mouth [place] 00 every 6 Medical (six) Branch hours as needed for Nausea and Vomiting (N/V). proMETHazin 2021-05 Yes [id number] 25mg Take 1 Univers e 25 mg 0-30 tablet by ity of tablet 00:00: mouth [place] 00 every 6 Medical (six) Branch hours as needed for Nausea and Vomiting (N/V). proMETHazin 2021-05 Yes [id number] 25mg Take 1 Univers e 25 mg 0-30 tablet by ity of tablet 00:00: mouth [place] 00 every 6 Medical (six) Branch hours as needed for Nausea and Vomiting (N/V). proMETHazin 2021-05 Yes [id number] 25mg Take 1 Univers e 25 mg 0-30 tablet by ity of tablet 00:00: mouth [place] 00 every 6 Medical (six) Branch hours as needed for Nausea and Vomiting (N/V). proMETHazin 2021-05 Yes [id number] 25mg Take 1 Univers e 25 mg 0-30 tablet by ity of tablet 00:00: mouth [place] 00 every 6 Medical (six) Branch hours as needed for Nausea and Vomiting (N/V). proMETHazin 2021-05 Yes [id number] 25mg Take 1 Univers e 25 mg 0-30 tablet by ity of tablet 00:00: mouth [place] 00 every 6 Medical (six) Branch hours as needed for Nausea and Vomiting (N/V). proMETHazin 2021-05 Yes [id number] 25mg Take 1 [facility] e 25 mg 0-30 tablet by ity of tablet 00:00: mouth [place] 00 every 6 Medical (six) Branch hours as needed for Nausea and Vomiting (N/V). proMETHazin 2021-05 Yes [id number] 25mg Take 1 [facility] e 25 mg 0-30 tablet by ity of tablet 00:00: mouth [place] 00 every 6 Medical (six) Branch hours as needed for Nausea and Vomiting (N/V). proMETHazin 2021-05 Yes [id number] 25mg Take 1 [facility] e 25 mg 0-30 tablet by ity of tablet 00:00: mouth [place] 00 every 6 Medical (six) Branch hours as needed for Nausea and Vomiting (N/V). proMETHazin 2021-05 Yes [id number] 25mg Take 1 [facility] e 25 mg 0-30 tablet by ity of tablet 00:00: mouth [place] 00 every 6 Medical (six) Branch hours as needed for Nausea and Vomiting (N/V). proMETHazin 2021-05 Yes [id number] 25mg Take 1 [facility] e 25 mg 0-30 tablet by ity of tablet 00:00: mouth [place] 00 every 6 Medical (six) Branch hours as needed for Nausea and Vomiting (N/V). proMETHazin 2021-05 Yes [id number] 25mg Take 1 [facility] e 25 mg 0-30 tablet by ity of tablet 00:00: mouth [place] 00 every 6 Medical (six) Branch hours as needed for Nausea and Vomiting (N/V). proMETHazin 2021-05- No [id number] 25mg Take 1 [facility] e 25 mg 0-30 03-21 tablet by ity of tablet 00:00: 00:00 mouth [place] 00 :00 every 6 Medical (six) Branch hours as needed for Nausea and Vomiting (N/V). methocarbam 2021-05- No [id number] 500mg Take 1 [facility] oL 500 mg 0-30 11-26 tablet by ity of tablet 00:00: 00:00 mouth 3 [place] 00 :00 (three) Medical times Branch daily as needed for Pain (scale 7-10). topiramate 2021-05 Yes [id number] 100mg Take 4 [facility] 25 mg 0-21 tablets by ity of tablet 00:00: mouth in [place] 00 the Medical morning. [place] topiramate 2021-05 Yes [id number] 100mg Take 4 [facility] 25 mg 0-21 tablets by ity of tablet 00:00: mouth in [place] the Medical morning. [place] topiramate 2021-05 Yes [id number] 100mg Take 4 [facility] 25 mg 0-21 tablets by ity of tablet 00:00: mouth in [place] the Medical morning. [place] topiramate 2021-05 Yes [id number] 100mg Take 4 [facility] 25 mg 0-21 tablets by ity of tablet 00:00: mouth in [place] the Medical morning. [place] topiramate 2021-05 Yes [id number] 100mg Take 4 [facility] 25 mg 0-21 tablets by ity of tablet 00:00: mouth in [place] the Medical morning. [place] topiramate 2021-05 Yes [id number] 100mg Take 4 [facility] 25 mg 0-21 tablets by ity of tablet 00:00: mouth in [place] the Medical morning. [place] topiramate 2021-05 Yes [id number] 100mg Take 4 [facility] 25 mg 0-21 tablets by ity of tablet 00:00: mouth in [place] the Medical morning. [place] topiramate 2021-05 Yes [id number] 100mg Take 4 [facility] 25 mg 0-21 tablets by ity of tablet 00:00: mouth in [place] the Medical morning. [place] topiramate 2021-05 Yes [id number] 100mg Take 4 [facility] 25 mg 0-21 tablets by ity of tablet 00:00: mouth in [place] 00 the Medical morning. Branch topiramate 2-1 Yes [id number] 100mg Take 4 [facility] 25 mg 0-21 tablets by ity of tablet 00:00: mouth in [place] 00 the Medical morning. Branch topiramate 2-1 Yes [id number] 100mg Take 4 [facility] 25 mg 0-21 tablets by ity of tablet 00:00: mouth in [place] the Medical morning. Branch topiramate 2021-1 Yes [id number] 100mg Take 4 [facility] 25 mg 0-21 tablets by ity of tablet 00:00: mouth in [place] the Medical morning. Branch topiramate 2-1 Yes [id number] 100mg Take 4 [facility] 25 mg 0-21 tablets by ity of tablet 00:00: mouth in [place] the Medical morning. Branch topiramate 2-1 Yes [id number] 100mg Take 4 [facility] 25 mg 0-21 tablets by ity of tablet 00:00: mouth in [place] the Medical morning. Branch topiramate 2021-1 Yes [id number] 100mg Take 4 [facility] 25 mg 0-21 tablets by ity of tablet 00:00: mouth in [place] the Medical morning. Branch topiramate 2021-1 Yes [id number] 100mg Take 4 [facility] 25 mg 0-21 tablets by ity of tablet 00:00: mouth in [place] the Medical morning. Branch topiramate 2-1 Yes [id number] 100mg Take 4 [facility] 25 mg 0-21 tablets by ity of tablet 00:00: mouth in [place] the Medical morning. Branch topiramate 2-1 Yes [id number] 100mg Take 4 [facility] 25 mg 0-21 tablets by ity of tablet 00:00: mouth in [place] the Medical morning. Branch topiramate 2-1 Yes [id number] 100mg Take 4 [facility] 25 mg 0-21 tablets by ity of tablet 00:00: mouth in [place] the Medical morning. Branch topiramate 2022-1 Yes [id number] 100mg Take 4 [facility] 25 mg 0-21 tablets by ity of tablet 00:00: mouth in [place] 00 the Medical morning. Branch topiramate 2022-1 Yes [id number] 100mg Take 4 [facility] 25 mg 0-21 tablets by ity of tablet 00:00: mouth in [place] 00 the Medical morning. Branch topiramate 2022-1 Yes [id number] 100mg Take 4 [facility] 25 mg 0-21 tablets by ity of tablet 00:00: mouth in [place] the Medical morning. Branch topiramate 2-1 Yes [id number] 100mg Take 4 [facility] 25 mg 0-21 tablets by ity of tablet 00:00: mouth in [place] the Medical morning. Branch topiramate 2021-1 Yes [id number] 100mg Take 4 [facility] 25 mg 0-21 tablets by ity of tablet 00:00: mouth in [place] the Medical morning. Branch topiramate 2021- Yes [id number] 100mg Take 4 [facility] 25 mg 0-21 tablets by ity of tablet 00:00: mouth in [place] the Medical morning. Branch topiramate 2021- Yes [id number] 100mg Take 4 [facility] 25 mg 0-21 tablets by ity of tablet 00:00: mouth in [place] the Medical morning. Branch topiramate 2021-1 Yes [id number] 100mg Take 4 [facility] 25 mg 0-21 tablets by ity of tablet 00:00: mouth in [place] the Medical morning. Branch topiramate 2021- Yes [id number] 100mg Take 4 [facility] 25 mg 0-21 tablets by ity of tablet 00:00: mouth in [place] the Medical morning. Branch topiramate 2021-1 Yes [id number] 100mg Take 4 [facility] 25 mg 0-21 tablets by ity of tablet 00:00: mouth in [place] the Medical morning. Branch topiramate 2-1 Yes [id number] 100mg Take 4 [facility] 25 mg 0-21 tablets by ity of tablet 00:00: mouth in [place] the Medical morning. Branch topiramate 2-1 Yes [id number] 100mg Take 4 [facility] 25 mg 0-21 tablets by ity of tablet 00:00: mouth in [place] the Medical morning. Branch topiramate 2-1 Yes [id number] 100mg Take 4 [facility] 25 mg 0-21 tablets by ity of tablet 00:00: mouth in [place] the Medical morning. Branch topiramate 2-1 Yes [id number] 100mg Take 4 [facility] 25 mg 0-21 tablets by ity of tablet 00:00: mouth in [place] 00 the Medical morning. Branch topiramate 2-1 Yes [id number] 100mg Take 4 [facility] 25 mg 0-21 tablets by ity of tablet 00:00: mouth in [place] 00 the Medical morning. Branch topiramate 2021-05 Yes [id number] 100mg Take 4 [facility] 25 mg 0-21 tablets by ity of tablet 00:00: mouth in [place] the Medical morning. Branch topiramate 2021-05 Yes [id number] 100mg Take 4 [facility] 25 mg 0-21 tablets by ity of tablet 00:00: mouth in [place] the Medical morning. Branch topiramate 2021-05 Yes [id number] 100mg Take 4 [facility] 25 mg 0-21 tablets by ity of tablet 00:00: mouth in [place] the Medical morning. Branch topiramate 2021-05 Yes [id number] 100mg Take 4 [facility] 25 mg 0-21 tablets by ity of tablet 00:00: mouth in [place] 00 the Medical morning. Branch topiramate 2021-05 Yes [id number] 100mg Take 4 [facility] 25 mg 0-21 tablets by ity of tablet 00:00: mouth in [place] the Medical morning. Branch topiramate 2021-05 Yes [id number] 100mg Take 4 [facility] 25 mg 0-21 tablets by ity of tablet 00:00: mouth in [place] the Medical morning. Branch topiramate 2021-05 Yes [id number] 100mg Take 4 [facility] 25 mg 0-21 tablets by ity of tablet 00:00: mouth in [place] the Medical morning. Branch topiramate 2021-05 Yes [id number] 100mg Take 4 [facility] 25 mg 0-21 tablets by ity of tablet 00:00: mouth in [place] the Medical morning. Branch topiramate 2021-05 Yes [id number] 100mg Take 4 [facility] 25 mg 0-21 tablets by ity of tablet 00:00: mouth in [place] the Medical morning. Branch topiramate 2021-05 Yes [id number] 100mg Take 4 [facility] 25 mg 0-21 [...] 28 :00 Medical Branch albuterol 2021-05 Yes [id number] 2{puff} Inhale 2 [facility] 90 0-18 Puffs ity of mcg/actuati 00:00: every 6 [place] on inhaler 00 (six) Medical hours as Branch needed for Wheezing or Shortness of Breath. albuterol 2021-05 Yes [id number] 2{puff} Inhale 2 [facility] 90 0-18 Puffs ity of mcg/actuati 00:00: every 6 [place] on inhaler 00 (six) Medical hours as Branch needed for Wheezing or Shortness of Breath. albuterol 2021-05 Yes [id number] 2{puff} Inhale 2 [facility] 90 0-18 Puffs ity of mcg/actuati 00:00: every 6 [place] on inhaler 00 (six) Medical hours as Branch needed for Wheezing or Shortness of Breath. albuterol 2021-05 Yes [id number] 2{puff} Inhale 2 [facility] 90 0-18 Puffs ity of mcg/actuati 00:00: every 6 [place] on inhaler 00 (six) Medical hours as Branch needed for Wheezing or Shortness of Breath. albuterol 2021-05 Yes [id number] 2{puff} Inhale 2 [facility] 90 0-18 Puffs ity of mcg/actuati 00:00: every 6 [place] on inhaler 00 (six) Medical hours as Branch needed for Wheezing or Shortness of Breath. albuterol 2021-05 Yes [id number] 2{puff} Inhale 2 [facility] 90 0-18 Puffs ity of mcg/actuati 00:00: every 6 [place] on inhaler 00 (six) Medical hours as Branch needed for Wheezing or Shortness of Breath. albuterol 2021-05 Yes [id number] 2{puff} Inhale 2 [facility] 90 0-18 Puffs ity of mcg/actuati 00:00: every 6 [place] on inhaler 00 (six) Medical hours as Branch needed for Wheezing or Shortness of Breath. albuterol 2021-05 Yes [id number] 2{puff} Inhale 2 [facility] 90 0-18 Puffs ity of mcg/actuati 00:00: every 6 [place] on inhaler 00 (six) Medical hours as Branch needed for Wheezing or Shortness of Breath. albuterol 2021-05 Yes [id number] 2{puff} Inhale 2 [facility] 90 0-18 Puffs ity of mcg/actuati 00:00: every 6 [place] on inhaler 00 (six) Medical hours as Branch needed for Wheezing or Shortness of Breath. albuterol 2021-05 Yes [id number] 2{puff} Inhale 2 [facility] 90 0-18 Puffs ity of mcg/actuati 00:00: every 6 [place] on inhaler 00 (six) Medical hours as Branch needed for Wheezing or Shortness of Breath. albuterol 2021-05 Yes [id number] 2{puff} Inhale 2 [facility] 90 0-18 Puffs ity of mcg/actuati 00:00: every 6 [place] on inhaler 00 (six) Medical hours as Branch needed for Wheezing or Shortness of Breath. albuterol 2021-05 Yes [id number] 2{puff} Inhale 2 [facility] 90 0-18 Puffs ity of mcg/actuati 00:00: every 6 [place] on inhaler 00 (six) Medical hours as Branch needed for Wheezing or Shortness of Breath. albuterol 2021-05 Yes [id number] 2{puff} Inhale 2 [facility] 90 0-18 Puffs ity of mcg/actuati 00:00: every 6 [place] on inhaler 00 (six) Medical hours as Branch needed for Wheezing or Shortness of Breath. albuterol 2021-05 Yes [id number] 2{puff} Inhale 2 [facility] 90 0-18 Puffs ity of mcg/actuati 00:00: every 6 [place] on inhaler 00 (six) Medical hours as Branch needed for Wheezing or Shortness of Breath. albuterol 2021-05 Yes [id number] 2{puff} Inhale 2 [facility] 90 0-18 Puffs ity of mcg/actuati 00:00: every 6 [place] on inhaler 00 (six) Medical hours as Branch needed for Wheezing or Shortness of Breath. albuterol 2021-05 Yes [id number] 2{puff} Inhale 2 [facility] 90 0-18 Puffs ity of mcg/actuati 00:00: every 6 [place] on inhaler 00 (six) Medical hours as Branch needed for Wheezing or Shortness of Breath. albuterol 2021-05 Yes [id number] 2{puff} Inhale 2 [facility] 90 0-18 Puffs ity of mcg/actuati 00:00: every 6 [place] on inhaler 00 (six) Medical hours as Branch needed for Wheezing or Shortness of Breath. albuterol 2021-05 Yes [id number] 2{puff} Inhale 2 [facility] 90 0-18 Puffs ity of mcg/actuati 00:00: every 6 [place] on inhaler 00 (six) Medical hours as Branch needed for Wheezing or Shortness of Breath. albuterol 2021-05 Yes [id number] 2{puff} Inhale 2 [facility] 90 0-18 Puffs ity of mcg/actuati 00:00: every 6 [place] on inhaler 00 (six) Medical hours as Branch needed for Wheezing or Shortness of Breath. albuterol 2021-05 Yes [id number] 2{puff} Inhale 2 [facility] 90 0-18 Puffs ity of mcg/actuati 00:00: every 6 [place] on inhaler 00 (six) Medical hours as Branch needed for Wheezing or Shortness of Breath. albuterol 2021-05 Yes [id number] 2{puff} Inhale 2 [facility] 90 0-18 Puffs ity of mcg/actuati 00:00: every 6 [place] on inhaler 00 (six) Medical hours as Branch needed for Wheezing or Shortness of Breath. albuterol 2021-05 Yes [id number] 2{puff} Inhale 2 [facility] 90 0-18 Puffs ity of mcg/actuati 00:00: every 6 [place] on inhaler 00 (six) Medical hours as Branch needed for Wheezing or Shortness of Breath. albuterol 2021-05 Yes [id number] 2{puff} Inhale 2 [facility] 90 0-18 Puffs ity of mcg/actuati 00:00: every 6 [place] on inhaler 00 (six) Medical hours as Branch needed for Wheezing or Shortness of Breath. albuterol 2021-05 Yes [id number] 2{puff} Inhale 2 [facility] 90 0-18 Puffs ity of mcg/actuati 00:00: every 6 [place] on inhaler 00 (six) Medical hours as Branch needed for Wheezing or Shortness of Breath. albuterol 2021-05 Yes [id number] 2{puff} Inhale 2 [facility] 90 0-18 Puffs ity of mcg/actuati 00:00: every 6 [place] on inhaler 00 (six) Medical hours as Branch needed for Wheezing or Shortness of Breath. albuterol 2021-05 Yes [id number] 2{puff} Inhale 2 [facility] 90 0-18 Puffs ity of mcg/actuati 00:00: every 6 [place] on inhaler 00 (six) Medical hours as Branch needed for Wheezing or Shortness of Breath. albuterol 2021-05 Yes [id number] 2{puff} Inhale 2 [facility] 90 0-18 Puffs ity of mcg/actuati 00:00: every 6 [place] on inhaler 00 (six) Medical hours as Branch needed for Wheezing or Shortness of Breath. albuterol 2021-05 Yes [id number] 2{puff} Inhale 2 [facility] 90 0-18 Puffs ity of mcg/actuati 00:00: every 6 [place] on inhaler 00 (six) Medical hours as Branch needed for Wheezing or Shortness of Breath. albuterol 2021-05 Yes [id number] 2{puff} Inhale 2 [facility] 90 0-18 Puffs ity of mcg/actuati 00:00: every 6 [place] as on inhaler 00 (six) Medical hours as Branch needed for Wheezing or Shortness of Breath. albuterol 2021-05 Yes [id number] 2{puff} Inhale 2 [facility] 90 0-18 Puffs ity of mcg/actuati 00:00: every 6 [place] on inhaler 00 (six) Medical hours as Branch needed for Wheezing or Shortness of Breath. albuterol 2021-05 Yes [id number] 2{puff} Inhale 2 [facility] 90 0-18 Puffs ity of mcg/actuati 00:00: every 6 [place] on inhaler 00 (six) Medical hours as Branch needed for Wheezing or Shortness of Breath. albuterol 2021-05 Yes [id number] 2{puff} Inhale 2 [facility] 90 0-18 Puffs ity of mcg/actuati 00:00: every 6 [place] on inhaler 00 (six) Medical hours as Branch needed for Wheezing or Shortness of Breath. albuterol 2021-05 Yes [id number] 2{puff} Inhale 2 [facility] 90 0-18 Puffs ity of mcg/actuati 00:00: every 6 [place] on inhaler 00 (six) Medical hours as Branch needed for Wheezing or Shortness of Breath. albuterol 2021-05 Yes [id number] 2{puff} Inhale 2 [facility] 90 0-18 Puffs ity of mcg/actuati 00:00: every 6 [place] on inhaler 00 (six) Medical hours as Branch needed for Wheezing or Shortness of Breath. albuterol 2021-05 Yes [id number] 2{puff} Inhale 2 [facility] 90 0-18 Puffs ity of mcg/actuati 00:00: every 6 [place] on inhaler 00 (six) Medical hours as Branch needed for Wheezing or Shortness of Breath. albuterol 2021-05 Yes [id number] 2{puff} Inhale 2 [facility] 90 0-18 Puffs ity of mcg/actuati 00:00: every 6 [place] on inhaler 00 (six) Medical hours as Branch needed for Wheezing or Shortness of Breath. albuterol 2021-05 Yes [id number] 2{puff} Inhale 2 [facility] 90 0-18 Puffs ity of mcg/actuati 00:00: every 6 [place] on inhaler 00 (six) Medical hours as Branch needed for Wheezing or Shortness of Breath. albuterol 2021-05 Yes [id number] 2{puff} Inhale 2 [facility] 90 0-18 Puffs ity of mcg/actuati 00:00: every 6 [place] on inhaler 00 (six) Medical hours as Branch needed for Wheezing or Shortness of Breath. albuterol 2021-05 Yes [id number] 2{puff} Inhale 2 [facility] 90 0-18 Puffs ity of mcg/actuati 00:00: every 6 [place] on inhaler 00 (six) Medical hours as Branch needed for Wheezing or Shortness of Breath. albuterol 2021-05 Yes [id number] 2{puff} Inhale 2 [facility] 90 0-18 Puffs ity of mcg/actuati 00:00: every 6 [place] on inhaler 00 (six) Medical hours as Branch needed for Wheezing or Shortness of Breath. albuterol 2021-05 Yes [id number] 2{puff} Inhale 2 [facility] 90 0-18 Puffs ity of mcg/actuati 00:00: every 6 [place] on inhaler 00 (six) Medical hours as Branch needed for Wheezing or Shortness of Breath. albuterol 2021-05 Yes [id number] 2{puff} Inhale 2 [facility] 90 0-18 Puffs ity of mcg/actuati 00:00: every 6 [place] on inhaler 00 (six) Medical hours as Branch needed for Wheezing or Shortness of Breath. albuterol 2021-05 Yes [id number] 2{puff} Inhale 2 [facility] 90 0-18 Puffs ity of mcg/actuati 00:00: every 6 [place] on inhaler 00 (six) Medical hours as Branch needed for Wheezing or Shortness of Breath. albuterol 2021-05 Yes [id number] 2{puff} Inhale 2 [facility] 90 0-18 Puffs ity of mcg/actuati 00:00: every 6 [place] on inhaler 00 (six) Medical hours as Branch needed for Wheezing or Shortness of Breath. albuterol 2021-05 Yes [id number] 2{puff} Inhale 2 [facility] 90 0-18 Puffs ity of mcg/actuati 00:00: every 6 [place] on inhaler 00 (six) Medical hours as Branch needed for Wheezing or Shortness of Breath. albuterol 2021-05 Yes [id number] 2{puff} Inhale 2 [facility] 90 0-18 Puffs ity of mcg/actuati 00:00: every 6 [place] on inhaler 00 (six) Medical hours as Branch needed for Wheezing or Shortness of Breath. albuterol 2021-05 Yes [id number] 2{puff} Inhale 2 [facility] 90 0-18 Puffs ity of mcg/actuati 00:00: every 6 [place] on inhaler 00 (six) Medical hours as Branch needed for Wheezing or Shortness of Breath. albuterol 2021-05 Yes [id number] 2{puff} Inhale 2 [facility] 90 0-18 Puffs ity of mcg/actuati 00:00: every 6 [place] on inhaler 00 (six) Medical hours as Branch needed for Wheezing or Shortness of Breath. albuterol 2021-05 Yes [id number] 2{puff} Inhale 2 [facility] 90 0-18 Puffs [...] a 24 hour period. benzonatate 2021-05- No [id number] 200mg Take 1 [facility] 200 mg 0-18 10-26 capsule by ity of capsule 00:00: 04:59 mouth 3 [place] 00 :00 (three) Medical times Branch daily as needed for Cough for up to 7 days. benzonatate 2021-05- No [id number] 200mg Take 1 [facility] 200 mg 0-18 10-26 capsule by ity of capsule 00:00: 04:59 mouth 3 [place] 00 :00 (three) Medical times Branch daily as needed for Cough for up to 7 days. benzonatate 2021-05- No [id number] 200mg Take 1 [facility] 200 mg 0-18 10-26 capsule by ity of capsule 00:00: 04:59 mouth 3 [place] 00 :00 (three) Medical times Branch daily as needed for Cough for up to 7 days. benzonatate 2021-05- No [id number] 200mg Take 1 [facility] 200 mg 0-18 10-26 capsule by ity of capsule 00:00: 04:59 mouth 3 [place] 00 :00 (three) Medical times Branch daily as needed for Cough for up to 7 days. benzonatate 2021-05- No [id number] 200mg Take 1 [facility] 200 mg 0-18 10-26 capsule by ity of capsule 00:00: 04:59 mouth 3 [place] 00 :00 (three) Medical times Branch daily as needed for Cough for up to 7 days. benzonatate 2021-05- No [id number] 200mg Take 1 [facility] 200 mg 0-18 10-26 capsule by ity of capsule 00:00: 04:59 mouth 3 [place] 00 :00 (three) Medical times [place] daily as needed for Cough for up to 7 days. SUMAtriptan 2021-05 No [id number] 50mg Take 1 [facility] 50 mg 0- 9105 tablet by ity of tablet 00:00: 04:59 mouth [place] 00 :[place] now for 1 Medical dose. [place] SUMAtriptan 2021-05 No [id number] 50mg Take 1 [facility] 50 mg [id number] tablet by ity of tablet 00:00: 04:59 mouth [place] 00 :[place] now for 1 Medical dose. [place] butalbital- 2021-05 No 1{tbl} 1 tablet, Univers acetaminoph 0-12 10-12 Oral, ity of en-caff 08:15: 08:09 ONCE, 1 [place] (ESGIC) 00 :00 dose, On Medical 50-325-40 [facility] Branch mg tablet 1 02/21/22 tablet at 0315, [place] butorphanol 2021-05 No 1mg 1 mg, IV U nivers (STADOL) 012 -12 Push, ity of injection 1 08:15: 07:28 ONCE, 1 [place] mg 00 :00 dose, On Medical [facility] 02/21/22 at 0315, Routine NaCl 0.9% 2021-05 No 1000mL at 999 Uni vers (NS) bolus 0-12 10-12 mL/hr, ity of infusion 07:15: 08:40 1,000 mL, [place] 1,000 mL 00 :00 IV Medical Infusion, [place] ONCE, 1 dose, On [facility] 02/21/22 at 0215, [place] proMETHazin 2021-05 No 12.5mg 12.5 mg, Univers e 0-12 10-12 IV ity of (PHENERGAN) 06:30: 06:38 Piggyback, [place] 12.5 mg in 00 :00 ONCE, 1 Medica l NaCl 0.9% dose, On [place] (NS) 50 mL [facility] IV 02/21/22 piggyback at 0130, [place] [...] IV ity of (BENADRYL) 06:30: 06:38 Push, [place] injection 00 :00 ONCE, 1 Medical 25 mg dose, On Branch Sat02/21/22 at 0130, [place] FENTanyl PF 2021-05- No 50ug 50 mcg, Un sushant (SUBLIMAZE 02-18 Slow IV ity o f (PF)) 20:30: 19:44 Push, [place] injection 00 :00 ONCE, 1 Medical 50 mcg dose, On Branch Ava 02/18/22 at 1530, Routine ketorolac 2021-05 No 30mg 30 mg, Unive rs (TORADOL) 02-18 Slow IV ity of injection 20:15: 20:09 Push, [place] 30 mg 00 :00 ONCE, 1 Medical dose, On Branch A[place] 02/18/22 at 1515, [place] iopamidol 2021-05 No [id number] 60mL 60 mL, Un sushant (ISOVUE 02-18 [...] 1 Medical 50 mcg dose, On Branch A[place] 02/18/22 at 1300, Routine ondansetron 2021-05- No 4mg 4 mg, Slow Univers (ZOFRAN 02-18 IV Push, ity of (PF)) 17:15: 17:27 ONCE, 1 [place] injection 4 00 :00 dose, On Medi yessi mg [facility] 02/18/22 at 1215, [place] morpHINE (2 2021- No 4mg 4 mg, Slow Univers mg/mL) 01-18 IV Push, ity of injection 4 15:15: 14:49 ONCE, 1 [place] mg 00 :00 dose, On [facility] 01/18/22 Branch at 1015, STAT ondansetron 2021- No 4mg 4 mg, Slow Univers (ZOFRAN 01-18 IV Push, ity of (PF)) 13:30: 13:33 ONCE, 1 [place] injection 4 00 :00 dose, On Medi yessi mg [facility] 01/18/22 Branch at 0830, [place] morpHINE (4 2021- No 4mg 4 mg, Slow Univers mg/mL) 01-18 IV Push, ity of injection 4 13:30: 13:34 ONCE, 1 [place] mg 00 :00 dose, On [facility] 01/18/22 Branch at 0830, STAT morpHINE (4 2021- No 4mg 4 mg, Slow Univers mg/mL) 01-18 IV Push, ity of injection 4 12:30: 11:39 ONCE, 1 [place] mg 00 :00 dose, On [facility] 01/18/22 Branch at 0730, STAT famotidine 2021-2021- No 20mg 20 mg, Univ ers (PEPCID 01-18 Slow IV ity of (PF)) 11:30: 10:52 Push, [place] injection 00 :00 ONCE, 1 Medical 20 mg dose, On [facility] 01/18/22 at 0630, [place] ondansetron 2021- No 4mg 4 mg, Slow Univers (ZOFRAN 01-18 IV Push, ity of (PF)) 11:30: 10:52 ONCE, 1 [place] injection 4 00 :00 dose, On Medi yessi mg [place] 01/18/22 Branch at 0630, [place] iodixanoL 2021-0 2021- No [id number] 80mL 80 mL, U nivers (VISIPAQUE 01-18 [...] Indication s: acute pain ondansetron 2021-0 Yes [id number] 4mg Take 1 Univers 4 mg 01-18 [id number] tablet by ity of disintegrat 00:00: mouth [place] ing tablet 00 every 8 Medica l (eight) Branch hours as needed for Nausea and Vomiting (N/V). ibuprofen 2021-0 Yes [id number] 600mg Take 1 [facility] 600 mg 01-18 [id number] tablet by ity of tablet 00:00: mouth [place] 00 every 6 Medical (six) Branch hours as needed for Pain (scale 4-6). traMADoL 50 2022-0 Yes [id number] 50mg Take 1 Univ ers mg tablet 9-08 tablet by ity o f 00:00: mouth [place] 00 every 6 Medical (six) Branch hours as needed for Pain (scale 7-10). Indication s: acute pain ondansetron 2022-0 Yes [id number] 4mg Take 1 Univers 4 mg 9-08 [id number] tablet by ity of disintegrat 00:00: mouth [place] ing tablet 00 every 8 Medica l (eight) Branch hours as needed for Nausea and Vomiting (N/V). ibuprofen 2022-0 Yes [id number] 600mg Take 1 [facility] 600 mg 9-08 [id number] tablet by ity of tablet 00:00: mouth [place] 00 every 6 Medical (six) Branch hours as needed for Pain (scale 4-6). traMADoL 50 2021-0 Yes [id number] 50mg Take 1 Univ ers mg tablet 9-08 tablet by ity o f 00:00: mouth [place] 00 every 6 Medical (six) Branch hours as needed for Pain (scale 7-10). Indication s: acute pain ondansetron 2022-0 Yes [id number] 4mg Take 1 Univers 4 mg 9-08 [id number] tablet by ity of disintegrat 00:00: mouth [place] ing tablet 00 every 8 Medica l (eight) Branch hours as needed for Nausea and Vomiting (N/V). ibuprofen 2022-0 Yes [id number] 600mg Take 1 Univers 600 mg 9-08 [id number] tablet by ity of tablet 00:00: mouth [place] 00 every 6 Medical (six) Branch hours as needed for Pain (scale 4-6). traMADoL 50 2-0 Yes [id number] 50mg Take 1 Univ ers mg tablet 9-08 tablet by ity o f 00:00: mouth [place] 00 every 6 Medical (six) Branch hours as needed for Pain (scale 7-10). Indication s: acute pain ondansetron 2022-0 Yes [id number] 4mg Take 1 [facility] 4 mg 9-08 [id number] tablet by ity of disintegrat 00:00: mouth [place] ing tablet 00 every 8 Medica l (eight) Branch hours as needed for Nausea and Vomiting (N/V). ibuprofen 2022-0 Yes [id number] 600mg Take 1 [facility] 600 mg 9-08 [id number] tablet by ity of tablet 00:00: mouth [place] 00 every 6 Medical (six) Branch hours as needed for Pain (scale 4-6). traMADoL 50 2022-0 Yes [id number] 50mg Take 1 [facility] ers mg tablet 9-08 tablet by ity o f 00:00: mouth [place] 00 every 6 Medical (six) Branch hours as needed for Pain (scale 7-10). Indication s: acute pain ondansetron 2022-0 Yes [id number] 4mg Take 1 [facility] 4 mg 9-08 [id number] tablet by ity of disintegrat 00:00: mouth [place] ing tablet 00 every 8 Medica l (eight) Branch hours as needed for Nausea and Vomiting (N/V). ibuprofen 2022-0 Yes [id number] 600mg Take 1 [facility] 600 mg 9-08 [id number] tablet by ity of tablet 00:00: mouth [place] 00 every 6 Medical (six) Branch hours as needed for Pain (scale 4-6). traMADoL 50 2-0 Yes [id number] 50mg Take 1 [facility] ers mg tablet 9-08 tablet by ity o f 00:00: mouth [place] 00 every 6 Medical (six) Branch hours as needed for Pain (scale 7-10). Indication s: acute pain ondansetron 2022-0 Yes [id number] 4mg Take 1 [facility] 4 mg 9-08 [id number] tablet by ity of disintegrat 00:00: mouth [place] ing tablet 00 every 8 Medica l (eight) Branch hours as needed for Nausea and Vomiting (N/V). ibuprofen 2022-0 Yes [id number] 600mg Take 1 [facility] 600 mg 9-08 [id number] tablet by ity of tablet 00:00: mouth [place] 00 every 6 Medical (six) Branch hours as needed for Pain (scale 4-6). traMADoL 50 2022-0 Yes [id number] 50mg Take 1 [facility] ers mg tablet 9-08 tablet by ity o f 00:00: mouth [place] 00 every 6 Medical (six) Branch hours as needed for Pain (scale 7-10). Indication s: acute pain ondansetron 2022-0 Yes [id number] 4mg Take 1 [facility] 4 mg 9-08 [id number] tablet by ity of disintegrat 00:00: mouth [place] ing tablet 00 every 8 Medica l (eight) Branch hours as needed for Nausea and Vomiting (N/V). ibuprofen 2022-0 Yes [id number] 600mg Take 1 [facility] 600 mg 9-08 [id number] tablet by ity of tablet 00:00: mouth [place] 00 every 6 Medical (six) Branch hours as needed for Pain (scale 4-6). traMADoL 50 0 Yes [id number] 50mg Take 1 [facility] ers mg tablet 9-08 tablet by ity o f 00:00: mouth [place] 00 every 6 Medical (six) Branch hours as needed for Pain (scale 7-10). Indication s: acute pain ondansetron Yes [id number] 4mg Take 1 [facility] 4 mg 9- [id number] tablet by ity of disintegrat 00:00: mouth [place] ing tablet 00 every 8 Medica l (eight) Branch hours as needed for Nausea and Vomiting (N/V). ibuprofen Yes [id number] 600mg Take 1 [facility] 600 mg 9- [id number] tablet by ity of tablet 00:00: mouth [place] 00 every 6 Medical (six) Branch hours as needed for Pain (scale 4-6). traMADoL 50 2021- No [id number] 50mg Take 1 [facility] vers mg tablet 01-18-18 tablet by ity of 00:00: 00:00 mouth [place] 00 :00 every 6 Medical (six) Branch hours as needed for Pain (scale 7-10). Indication s: acute pain ondansetron 2021- No [id number] 4mg Take 1 [facility] 4 mg 9-02-27 [id number] tablet by it[facility] of disintegrat 00:00: 00:00 [place] tablet 00 :00 every 8 Medica l (eight) Branch hours as needed for Nausea and Vomiting (N/V). ibuprofen 2021- No [id number] 600mg Take 1 [facility] 600 mg 9- 10-18 [id number] tablet by ity o f tablet 00:00: [...] Indication s: acute pain ondansetron 2021-2021- No [id number] 4mg Take 1 [facility] 4 mg 01-18 [id number] tablet by ity of disintegrat 00:00: 00:00 mouth [place] tablet 00 :00 every 8 Medica l (eight) Branch hours as needed for Nausea and Vomiting (N/V). ibuprofen 2021- No [id number] 600mg Take 1 [facility] 600 mg 01-18 [id number] tablet by ity o f tablet 00:00: [...] Indication s: acute pain ondansetron 2021- No [id number] 4mg Take 1 [facility] 4 mg 01-18 [id number] tablet by ity of disintegrat 00:00: 00:00 [place] tablet 00 :00 every 8 Medica l (eight) Branch hours as needed for Nausea and Vomiting (N/V). ibuprofen 2021- No [id number] 600mg Take 1 [facility] 600 mg 01-18 [id number] tablet by ity o f tablet 00:00: [...] Indication s: acute pain ondansetron 2021-2021- No [id number] 4mg Take 1 [facility] 4 mg 01-18 [id number] tablet by ity of disintegrat 00:00: 00:00 [place] tablet 00 :00 every 8 Medica l (eight) Branch hours as needed for Nausea and Vomiting (N/V). ibuprofen 2021- No [id number] 600mg Take 1 [facility] 600 mg 01-18 [id number] tablet by ity o f tablet 00:00: 00:00 mouth [place] 00 :00 every 6 Medical (six) Branch hours as needed for Pain (scale 4-6). predniSONE 2021- No [id number] 40mg Take 2 [facility] 20 mg 01-16 tablets by ity of tablet 00:00: 04:59 mouth in [place] 00 :00 [facility] for 7 days. predniSONE 2021- No [id number] 40mg Take 2 [facility] 20 mg 01-16 tablets by ity of tablet 00:00: 04:59 mouth in [place] 00 :00 [facility] for 7 days. morpHINE (4 No 4mg 4 mg, Slow [facility] mg/mL) 01-15 IV Push, ity of injection 4 16:15: 15:28 ONCE, 1 [place] mg 00 :00 dose, On Medical [facility] 01/15/22 Branch at 1115, [place] proMETHazin No [...] Medical Infusion, Branch ONCE, 1 dose, On [facility] 01/15/22 at 1000, [place] morpHINE (4 No 4mg 4 mg, Slow [facility] mg/mL) 01-15 IV Push, ity of injection 4 15:00: 14:37 ONCE, 1 [place] mg 00 :00 dose, On Medical [facility] 01/15/22 Branch at 1000, [place] ondansetron 2021- [...] at 0915, 1 mL proMETHazin 0 Yes [id number] 25mg Take 1 [facility] e 25 mg 9-05 tablet by ity of tablet 00:00: mouth [place] 00 every 6 Medical (six) Branch hours as needed for Nausea and Vomiting (N/V). proMETHazin 0 Yes [id number] 25mg Take 1 [facility] e 25 mg 9-05 tablet by ity of tablet 00:00: mouth [place] 00 every 6 Medical (six) Branch hours as needed for Nausea and Vomiting (N/V). proMETHazin 2021-0 Yes [id number] 25mg Take 1 [facility] e 25 mg 9-05 tablet by ity of tablet 00:00: mouth [place] 00 every 6 Medical (six) Branch hours as needed for Nausea and Vomiting (N/V). proMETHazin 2021-0 Yes [id number] 25mg Take 1 [facility] e 25 mg 9-05 tablet by ity of tablet 00:00: mouth [place] 00 every 6 Medical (six) Branch hours as needed for Nausea and Vomiting (N/V). proMETHazin 2021-0 Yes [id number] 25mg Take 1 [facility] e 25 mg 9-05 tablet by ity of tablet 00:00: mouth [place] 00 every 6 Medical (six) Branch hours as needed for Nausea and Vomiting (N/V). proMETHazin 2021-0 Yes [id number] 25mg Take 1 [facility] e 25 mg 9-05 tablet by ity of tablet 00:00: mouth [place] 00 every 6 Medical (six) Branch hours as needed for Nausea and Vomiting (N/V). proMETHazin 2021-0 Yes [id number] 25mg Take 1 [facility] e 25 mg 9-05 tablet by ity of tablet 00:00: mouth [place] 00 every 6 Medical (six) Branch hours as needed for Nausea and Vomiting (N/V). proMETHazin 0 Yes [id number] 25mg Take 1 [facility] e 25 mg 9-05 tablet by ity of tablet 00:00: mouth [place] 00 every 6 Medical (six) Branch hours as needed for Nausea and Vomiting (N/V). proMETHazin 0 Yes [id number] 25mg Take 1 [facility] e 25 mg 9-05 tablet by ity of tablet 00:00: mouth [place] 00 every 6 Medical (six) Branch hours as needed for Nausea and Vomiting (N/V). proMETHazin 2021- No [id number] 25mg Take 1 [facility] e 25 mg 9-05 10-18 tablet by ity of tablet 00:00: 00:00 mouth [place] 00 :00 every 6 Medical (six) Branch hours as needed for Nausea and Vomiting (N/V). proMETHazin 2021- No [id number] 25mg Take 1 [facility] e 25 mg 9-05 10-18 tablet by ity of tablet 00:00: 00:00 mouth [place] 00 :00 every 6 Medical (six) Branch hours as needed for Nausea and Vomiting (N/V). proMETHazin 2021- No [id number] 25mg Take 1 [facility] e 25 mg 9-05 10-18 tablet by ity of tablet 00:00: 00:00 mouth [place] 00 :00 every 6 Medical (six) Branch hours as needed for Nausea and Vomiting (N/V). proMETHazin 2021- No [id number] 25mg Take 1 [facility] e 25 mg [...] IV ity of PF 23:45: 23:50 [place], [place] injection 00 :00 ONCE, 1 Medical 10 mg dose, On Branch 01/08/22 at 1845, 1 mL ketorolac 2021- No 30mg 30 mg, Unive rs (TORADOL) 01-08 Slow IV ity of injection 23:45: 23:51 Push, [place] 30 mg 00 :00 ONCE, 1 Medical dose, On Branch 01/08/22 at 1845, [place] ondansetron Yes [id number] 4mg Take 1 [facility] 4 mg 8-29 tablet by ity of disintegrat 00:00: mouth [place] ing tablet 00 every 8 Medica l (eight) Branch hours as needed for Nausea and Vomiting (N/V). acetaminoph Yes [id number] 650mg Take 1 [facility] en (TYLENOL 8-29 tablet by ity of ARTHRITIS 00:00: mouth [place] PAIN) 650 00 every 8 Medical mg CR (eight) Branch tablet hours as needed for Pain. ketorolac 0 Yes [id number] 10mg Take 1 [facility] nivers 10 mg 8-29 tablet by ity of tablet 00:00: mouth [place] 00 every 6 Medical (six) Branch hours as needed for Pain (scale 4-6) or Pain (scale 7-10). metaxalone 0 Yes [id number] 800mg Take 1 [facility] (SKELAXIN) 8-29 tablet by ity of 800 mg 00:00: mouth in [place] tablet 00 the Medical morning Branch and 1 tablet at noon and 1 tablet in the evening. ondansetron 2022-0 Yes [id number] 4mg Take 1 [facility] 4 mg 8-29 tablet by ity of disintegrat 00:00: mouth [place] ing tablet 00 every 8 Medica l (eight) Branch hours as needed for Nausea and Vomiting (N/V). acetaminoph 2-0 Yes [id number] 650mg Take 1 [facility] en (TYLENOL 8-29 tablet by ity of ARTHRITIS 00:00: mouth [place] PAIN) 650 00 every 8 Medical mg CR (eight) Branch tablet hours as needed for Pain. ketorolac 2-0 Yes [id number] 10mg Take 1 U nivers 10 mg 8-29 tablet by ity of tablet 00:00: mouth [place] 00 every 6 Medical (six) Branch hours as needed for Pain (scale 4-6) or Pain (scale 7-10). metaxalone 2-0 Yes [id number] 800mg Take 1 [facility] (SKELAXIN) 8-29 tablet by ity of 800 mg 00:00: mouth in [place] tablet 00 the Medical morning Branch and 1 tablet at noon and 1 tablet in the evening. ondansetron 2021-0 Yes [id number] 4mg Take 1 [facility] 4 mg 8-29 tablet by ity of disintegrat 00:00: mouth [place] ing tablet 00 every 8 Medica l (eight) Branch hours as needed for Nausea and Vomiting (N/V). acetaminoph 2021-0 Yes [id number] 650mg Take 1 [facility] en (TYLENOL 8-29 tablet by ity of ARTHRITIS 00:00: mouth [place] PAIN) 650 00 every 8 Medical mg CR (eight) Branch tablet hours as needed for Pain. ketorolac 2-0 Yes [id number] 10mg Take 1 U nivers 10 mg 8-29 tablet by ity of tablet 00:00: mouth [place] 00 every 6 Medical (six) Branch hours as needed for Pain (scale 4-6) or Pain (scale 7-10). metaxalone 2022-0 Yes [id number] 800mg Take 1 [facility] (SKELAXIN) 8-29 tablet by ity of 800 mg 00:00: mouth in [place] tablet 00 the Medical morning Branch and 1 tablet at noon and 1 tablet in the evening. ondansetron 2022-0 Yes [id number] 4mg Take 1 [facility] 4 mg 8-29 tablet by ity of disintegrat 00:00: mouth [place] ing tablet 00 every 8 Medica l (eight) Branch hours as needed for Nausea and Vomiting (N/V). acetaminoph 2022-0 Yes [id number] 650mg Take 1 [facility] en (TYLENOL 8-29 tablet by ity of ARTHRITIS 00:00: mouth [place] PAIN) 650 00 every 8 Medical mg CR (eight) Branch tablet hours as needed for Pain. ketorolac 2022-0 Yes [id number] 10mg Take 1 U nivers 10 mg 8-29 tablet by ity of tablet 00:00: mouth [place] 00 every 6 Medical (six) Branch hours as needed for Pain (scale 4-6) or Pain (scale 7-10). metaxalone 2022-0 Yes [id number] 800mg Take 1 [facility] (SKELAXIN) 8-29 tablet by ity of 800 mg 00:00: mouth in [place] tablet 00 the Medical morning Branch and 1 tablet at noon and 1 tablet in the evening. ondansetron 2-0 Yes [id number] 4mg Take 1 [facility] 4 mg 8-29 tablet by ity of disintegrat 00:00: mouth [place] ing tablet 00 every 8 Medica l (eight) Branch hours as needed for Nausea and Vomiting (N/V). acetaminoph 2022-0 Yes [id number] 650mg Take 1 [facility] en (TYLENOL 8-29 tablet by ity of ARTHRITIS 00:00: mouth [place] PAIN) 650 00 every 8 Medical mg CR (eight) Branch tablet hours as needed for Pain. ketorolac 2022-0 Yes [id number] 10mg Take 1 U nivers 10 mg 8-29 tablet by ity of tablet 00:00: mouth [place] 00 every 6 Medical (six) Branch hours as needed for Pain (scale 4-6) or Pain (scale 7-10). metaxalone 2022-0 Yes [id number] 800mg Take 1 [facility] (SKELAXIN) 8-29 tablet by ity of 800 mg 00:00: mouth in [place] tablet 00 the Medical morning Branch and 1 tablet at noon and 1 tablet in the evening. ondansetron 2022-0 Yes [id number] 4mg Take 1 [facility] 4 mg 8-29 tablet by ity of disintegrat 00:00: mouth [place] ing tablet 00 every 8 Medica l (eight) Branch hours as needed for Nausea and Vomiting (N/V). acetaminoph 2022-0 Yes [id number] 650mg Take 1 [facility] en (TYLENOL 8-29 tablet by ity of ARTHRITIS 00:00: mouth [place] PAIN) 650 00 every 8 Medical mg CR (eight) Branch tablet hours as needed for Pain. ketorolac 2022-0 Yes [id number] 10mg Take 1 U nivers 10 mg 8-29 tablet by ity of tablet 00:00: mouth [place] 00 every 6 Medical (six) Branch hours as needed for Pain (scale 4-6) or Pain (scale 7-10). metaxalone 2022-0 Yes [id number] 800mg Take 1 [facility] (SKELAXIN) 8-29 tablet by ity of 800 mg 00:00: mouth in [place] tablet 00 the Medical morning Branch and 1 tablet at noon and 1 tablet in the evening. ondansetron 2-0 Yes [id number] 4mg Take 1 [facility] 4 mg 8-29 tablet by ity of disintegrat 00:00: mouth [place] ing tablet 00 every 8 Medica l (eight) Branch hours as needed for Nausea and Vomiting (N/V). acetaminoph 2-0 Yes [id number] 650mg Take 1 [facility] en (TYLENOL 8-29 tablet by ity of ARTHRITIS 00:00: mouth [place] PAIN) 650 00 every 8 Medical mg CR (eight) Branch tablet hours as needed for Pain. ketorolac 2022-0 Yes [id number] 10mg Take 1 U nivers 10 mg 8-29 tablet by ity of tablet 00:00: mouth [place] 00 every 6 Medical (six) Branch hours as needed for Pain (scale 4-6) or Pain (scale 7-10). metaxalone 2022-0 Yes [id number] 800mg Take 1 [facility] (SKELAXIN) 8-29 tablet by ity of 800 mg 00:00: mouth in [place] tablet 00 the Medical morning Branch and 1 tablet at noon and 1 tablet in the evening. ondansetron 2022-0 Yes [id number] 4mg Take 1 [facility] 4 mg 8-29 tablet by ity of disintegrat 00:00: mouth [place] ing tablet 00 every 8 Medica l (eight) Branch hours as needed for Nausea and Vomiting (N/V). acetaminoph 2022-0 Yes [id number] 650mg Take 1 [facility] en (TYLENOL 8-29 tablet by ity of ARTHRITIS 00:00: mouth [place] PAIN) 650 00 every 8 Medical mg CR (eight) Branch tablet hours as needed for Pain. ketorolac 2021-0 Yes [id number] 10mg Take 1 U nivers 10 mg 8-29 tablet by ity of tablet 00:00: mouth [place] 00 every 6 Medical (six) Branch hours as needed for Pain (scale 4-6) or Pain (scale 7-10). metaxalone 2021-0 Yes [id number] 800mg Take 1 [facility] (SKELAXIN) 8-29 tablet by ity of 800 mg 00:00: mouth in [place] tablet 00 the Medical morning Branch and 1 tablet at noon and 1 tablet in the evening. ondansetron 2021-0 Yes [id number] 4mg Take 1 [facility] 4 mg 8-29 tablet by ity of disintegrat 00:00: mouth [place] ing tablet 00 every 8 Medica l (eight) Branch hours as needed for Nausea and Vomiting (N/V). acetaminoph 2021-0 Yes [id number] 650mg Take 1 [facility] en (TYLENOL 8-29 tablet by ity of ARTHRITIS 00:00: mouth [place] PAIN) 650 00 every 8 Medical mg CR (eight) Branch tablet hours as needed for Pain. ketorolac 2021-0 Yes [id number] 10mg Take 1 U nivers 10 mg 8-29 tablet by ity of tablet 00:00: mouth [place] 00 every 6 Medical (six) Branch hours as needed for Pain (scale 4-6) or Pain (scale 7-10). metaxalone 2021-0 Yes [id number] 800mg Take 1 [facility] (SKELAXIN) 8-29 tablet by ity of 800 mg 00:00: mouth in [place] tablet 00 the Medical morning Branch and 1 tablet at noon and 1 tablet in the evening. ondansetron 2021-0 Yes [id number] 4mg Take 1 [facility] 4 mg 8-29 tablet by ity of disintegrat 00:00: mouth [place] ing tablet 00 every 8 Medica l (eight) Branch hours as needed for Nausea and Vomiting (N/V). acetaminoph 2021-0 Yes [id number] 650mg Take 1 [facility] en (TYLENOL 8-29 tablet by ity of ARTHRITIS 00:00: mouth [place] PAIN) 650 00 every 8 Medical mg CR (eight) Branch tablet hours as needed for Pain. ketorolac 2021-0 Yes [id number] 10mg Take 1 U nivers 10 mg 8-29 tablet by ity of tablet 00:00: mouth [place] 00 every 6 Medical (six) Branch hours as needed for Pain (scale 4-6) or Pain (scale 7-10). metaxalone 2021-0 Yes [id number] 800mg Take 1 [facility] (SKELAXIN) 8-29 tablet by ity of 800 mg 00:00: mouth in [place] tablet 00 the Medical morning Branch and 1 tablet at noon and 1 tablet in the evening. acetaminoph 2021-0 Yes [id number] 650mg Take 1 [facility] en (TYLENOL 8-29 tablet by ity of ARTHRITIS 00:00: mouth [place] PAIN) 650 00 every 8 Medical mg CR (eight) Branch tablet hours as needed for Pain. acetaminoph 2021-0 Yes [id number] 650mg Take 1 [facility] en (TYLENOL 8-29 tablet by ity of ARTHRITIS 00:00: mouth [place] PAIN) 650 00 every 8 Medical mg CR (eight) Branch tablet hours as needed for Pain. acetaminoph 2021-0 Yes [id number] 650mg Take 1 [facility] en (TYLENOL 8-29 tablet by ity of ARTHRITIS 00:00: mouth [place] PAIN) 650 00 every 8 Medical mg CR (eight) Branch tablet hours as needed for Pain. acetaminoph 2021-0 Yes [id number] 650mg Take 1 [facility] en (TYLENOL 8-29 tablet by ity of ARTHRITIS 00:00: mouth [place] PAIN) 650 00 every 8 Medical mg CR (eight) Branch tablet hours as needed for Pain. acetaminoph 2021-0 Yes [id number] 650mg Take 1 [facility] en (TYLENOL 8-29 tablet by ity of ARTHRITIS 00:00: mouth [place] PAIN) 650 00 every 8 Medical mg CR (eight) Branch tablet hours as needed for Pain. acetaminoph 2021-0 Yes [id number] 650mg Take 1 [facility] en (TYLENOL 8-29 tablet by ity of ARTHRITIS 00:00: mouth [place] PAIN) 650 00 every 8 Medical mg CR (eight) Branch tablet hours as needed for Pain. acetaminoph 2021-0 Yes [id number] 650mg Take 1 [facility] en (TYLENOL 8-29 tablet by ity of ARTHRITIS 00:00: mouth [place] PAIN) 650 00 every 8 Medical mg CR (eight) Branch tablet hours as needed for Pain. acetaminoph 2021-0 Yes [id number] 650mg Take 1 [facility] en (TYLENOL 8-29 tablet by ity of ARTHRITIS 00:00: mouth [place] PAIN) 650 00 every 8 Medical mg CR (eight) Branch tablet hours as needed for Pain. acetaminoph 0 Yes [id number] 650mg Take 1 [facility] en (TYLENOL 8-29 tablet by ity of ARTHRITIS 00:00: mouth [place] PAIN) 650 00 every 8 Medical mg CR (eight) Branch tablet hours as needed for Pain. acetaminoph 0 Yes [id number] 650mg Take 1 [facility] en (TYLENOL 8-29 tablet by ity of ARTHRITIS 00:00: mouth [place] PAIN) 650 00 every 8 Medical mg CR (eight) Branch tablet hours as needed for Pain. acetaminoph 0 Yes [id number] 650mg Take 1 [facility] en (TYLENOL 8-29 tablet by ity of ARTHRITIS 00:00: mouth [place] PAIN) 650 00 every 8 Medical mg CR (eight) Branch tablet hours as needed for Pain. acetaminoph 0 Yes [id number] 650mg Take 1 [facility] en (TYLENOL 8-29 tablet by ity of ARTHRITIS 00:00: mouth [place] PAIN) 650 00 every 8 Medical mg CR (eight) Branch tablet hours as needed for Pain. acetaminoph 0 Yes [id number] 650mg Take 1 [facility] en (TYLENOL 8-29 tablet by ity of ARTHRITIS 00:00: mouth [place] PAIN) 650 00 every 8 Medical mg CR (eight) Branch tablet hours as needed for Pain. acetaminoph 0 Yes [id number] 650mg Take 1 [facility] en (TYLENOL 8-29 tablet by ity of ARTHRITIS 00:00: mouth [place] PAIN) 650 00 every 8 Medical mg CR (eight) Branch tablet hours as needed for Pain. acetaminoph 0 Yes [id number] 650mg Take 1 [facility] en (TYLENOL 8-29 tablet by ity of ARTHRITIS 00:00: mouth [place] PAIN) 650 00 every 8 Medical mg CR (eight) Branch tablet hours as needed for Pain. acetaminoph 2022-0 Yes [id number] 650mg Take 1 [facility] en (TYLENOL 8-29 tablet by ity of ARTHRITIS 00:00: mouth [place] PAIN) 650 00 every 8 Medical mg CR (eight) Branch tablet hours as needed for Pain. acetaminoph 0 Yes [id number] 650mg Take 1 [facility] en (TYLENOL 8-29 tablet by ity of ARTHRITIS 00:00: mouth [place] PAIN) 650 00 every 8 Medical mg CR (eight) Branch tablet hours as needed for Pain. acetaminoph 2021- No [id number] 650mg Take 1 [facility] en (TYLENOL 8-29 11-26 tablet by it y of ARTHRITIS 00:00: 00:00 mouth [place] PAIN) 650 00 :00 every 8 Medical mg CR (eight) Branch tablet hours as needed for Pain. ondansetron 2021- No [id number] 4mg Take 1 [facility] 4 mg 8-29 10-18 tablet by ity of disintegrat 00:00: 00:00 [place] tablet 00 :00 every 8 Medica l (eight) Branch hours as needed for Nausea and Vomiting (N/V). ketorolac 2021- No [id number] 10mg Take 1 [facility] 10 mg 8-29 10-18 tablet by ity of tablet 00:00: 00:00 mouth [place] 00 :00 every 6 Medical (six) Branch hours as needed for Pain (scale 4-6) or Pain (scale 7-10). metaxalone 2021- No [id number] 800mg Take 1 [facility] (SKELAXIN) 8-29 10-18 tablet by ity of 800 mg 00:00: 00:00 mouth in [place] tablet 00 :00 the Medical morning Branch and 1 tablet at noon and 1 tablet in the evening. ondansetron 2021-0 2021- No [id number] 4mg Take 1 [facility] 4 mg 8-29 10-18 tablet by ity of disintegrat 00:00: 00:00 [place] tablet 00 :00 every 8 Medica l (eight) Branch hours as needed for Nausea and Vomiting (N/V). ketorolac 2021-0 2021- No [id number] 10mg Take 1 [facility] 10 mg 8-29 10-18 tablet by ity of tablet 00:00: 00:00 mouth [place] 00 :00 every 6 Medical (six) Branch hours as needed for Pain (scale 4-6) or Pain (scale 7-10). metaxalone 2022-0 2022- No [id number] 800mg Take 1 [facility] (SKELAXIN) 8-29 10-18 tablet by ity of 800 mg 00:00: 00:00 mouth in [place] tablet 00 :00 the Medical morning Branch and 1 tablet at noon and 1 tablet in the evening. ondansetron 2022-0 2022- No [id number] 4mg Take 1 [facility] 4 mg 8-29 10-18 tablet by ity of disintegrat 00:00: 00:00 [place] tablet 00 :00 every 8 Medica l (eight) Branch hours as needed for Nausea and Vomiting (N/V). ketorolac 2022-0 2022- No [id number] 10mg Take 1 [facility] 10 mg 8-29 10-18 tablet by ity of tablet 00:00: 00:00 mouth [place] 00 :00 every 6 Medical (six) Branch hours as needed for Pain (scale 4-6) or Pain (scale 7-10). metaxalone 2022-0 2022- No [id number] 800mg Take 1 [facility] (SKELAXIN) 8-29 10-18 tablet by ity of 800 mg 00:00: 00:00 mouth in [place] tablet 00 :00 the Medical morning Branch and 1 tablet at noon and 1 tablet in the evening. ondansetron 2022-0 2022- No [id number] 4mg Take 1 [facility] 4 mg 8-29 10-18 tablet by ity of disintegrat 00:00: 00:00 [place] tablet 00 :00 every 8 Medica l (eight) Branch hours as needed for Nausea and Vomiting (N/V). ketorolac 2022-0 2022- No [id number] 10mg Take 1 [facility] 10 mg 8-29 10-18 tablet by ity of tablet 00:00: 00:00 mouth [place] 00 :00 every 6 Medical (six) Branch hours as needed for Pain (scale 4-6) or Pain (scale 7-10). metaxalone 2022-0 2022- No [id number] 800mg Take 1 [facility] (SKELAXIN) 8-29 10-18 [...] Medical Branch citalopram 0 Yes Take by [facility] ers hydrobromid 12-12 mouth. ity [...] ity o f capsule 13:03: every 6 [place] [address] (six) Medical hours as Branch needed for Allergies. carbamazepi 0 Yes Take by Uni vers ne 8-02 mouth. ity of (TEGRETOL 13:03: [place] ORAL) Medical Branch citalopram Yes Take by Univ ers hydrobromid 8-02 mouth. ity of e 13:03: [place] (CITALOPRAM 04 Medical ORAL) Branch ALBUTEROL Yes Univers INHALE 8 ity of 13:03: [place] [address] Medical Branch diphenhydrA Yes 25mg Take 25 mg Univers MINE 25 mg 02 by mouth ity o f capsule 13:03: every 6 [place] [address] (six) Medical hours as Branch needed for Allergies. carbamazepi 0 Yes Take by Uni vers ne 8-02 mouth. ity of (TEGRETOL 13:03: [place] ORAL) Medical Branch citalopram Yes Take by Univ ers hydrobromid 8-02 mouth. ity of e 13:03: [place] (CITALOPRAM 04 Medical ORAL) Branch ALBUTEROL 0 Yes Univers INHALE 8 ity of 13:03: [place] [address] Medical Branch diphenhydrA Yes 25mg Take 25 mg [facility] MINE 25 mg 802 by mouth ity o f capsule 13:03: every 6 [place] [address] (six) Medical hours as Branch needed for Allergies. carbamazepi 0 Yes Take by Uni vers ne 8-02 mouth. ity of (TEGRETOL 13:03: [place] ORAL) 04 Medical Branch citalopram Yes Take by Univ ers hydrobromid 8-02 mouth. ity of e 13:03: [place] (CITALOPRAM 04 Medical ORAL) Branch ALBUTEROL 0 Yes Univers INHALE 802 ity of 13:03: [place] [address] Medical Branch diphenhydrA Yes 25mg Take 25 mg [facility] MINE 25 mg 802 by mouth ity o f capsule 13:03: every 6 [place] [address] (six) Medical hours as Branch needed for Allergies. carbamazepi Yes Take by Uni vers ne 8-02 mouth. ity of (TEGRETOL 13:03: [place] ORAL) Medical Branch citalopram Yes Take by Univ ers hydrobromid 8-02 mouth. ity of e 13:03: [place] (CITALOPRAM 04 Medical ORAL) Branch ALBUTEROL Yes [facility] INHALE 8 ity of 13:03: [place] [address] Medical Branch diphenhydrA Yes 25mg Take 25 mg [facility] MINE 25 mg 12-12 by mouth ity o f capsule 13:03: every 6 [place] [address] (six) Medical hours as Branch needed for Allergies. carbamazepi Yes Take by Uni vers ne 8-02 mouth. ity of (TEGRETOL 13:03: [place] ORAL) Medical Branch citalopram Yes Take by Univ ers hydrobromid 8-02 mouth. ity of e 13:03: [place] (CITALOPRAM 04 Medical ORAL) Branch ALBUTEROL 0 Yes [facility] INHALE 12-12 ity of 13:03: [place] [address] Medical Branch diphenhydrA Yes 25mg Take 25 mg [facility] MINE 25 mg 12-12 by mouth ity o f capsule 13:03: every 6 [place] [address] (six) Medical hours as Branch needed for Allergies. carbamazepi 0 Yes Take by Uni vers ne 8-02 mouth. ity of (TEGRETOL 13:03: [place] ORAL) Medical Branch citalopram Yes Take by Univ ers hydrobromid 8-02 mouth. ity of e 13:03: [place] (CITALOPRAM 04 Medical ORAL) Branch ALBUTEROL 0 Yes [facility] INHALE 8 ity of 13:03: [place] [address] Medical Branch diphenhydrA Yes 25mg Take 25 [...] Yes [facility] INHALE 8-02 ity of 13:03: [place] [address] Medical Branch diphenhydrA 0 Yes 25mg Take [...] Yes [facility] INHALE 8-02 ity of 13:03: [address] Branch diphenhydrA Yes 25mg Take 25 mg [facility] MINE 25 mg 802 by mouth ity o f capsule 13:03: every 6 [place] [address] (six) Medical hours as Branch needed for Allergies. carbamazepi 0 Yes Take by Uni vers ne 8-02 mouth. ity of (TEGRETOL 13:03: [place] ORAL) Medical Branch citalopram Yes Take by Univ ers hydrobromid 8-02 mouth. ity of e 13:03: [place] (CITALOPRAM 04 Medical ORAL) Branch ALBUTEROL Yes [facility] INHALE 8-02 ity of 13:03: [place] [address] Medical Branch ALBUTEROL Yes [facility] INHALE 8-02 ity of 13:03: [place] [address] Medical Branch ALBUTEROL 0 Yes [facility] INHALE 8-02 ity of 13:03: [place] [address] Medical Branch ALBUTEROL 0 Yes [facility] INHALE 8-02 ity of 13:03: [place] [address] Medical Branch ALBUTEROL 0 Yes [facility] INHALE 8-02 ity of 13:03: [address] ALBUTEROL Yes [facility] INHALE 8-02 ity of 13:03: [address] ALBUTEROL Yes [facility] INHALE 8-02 ity of 13:03: [address] ALBUTEROL Yes [facility] INHALE 8-02 ity of 13:03: [address] ALBUTEROL Yes [facility] INHALE 8-02 ity of 13:03: [place] [facility] ALBUTEROL Yes [facility] INHALE 8-02 ity of 13:03: [address] ALBUTEROL Yes [facility] INHALE 8-02 ity of 13:03: [address] ALBUTEROL Yes [facility] INHALE 8-02 ity of 13:03: [address] ALBUTEROL Yes [facility] INHALE 8-02 ity of 13:03: [address] ALBUTEROL Yes [facility] INHALE 8-02 ity of 13:03: [address] ALBUTEROL Yes [facility] INHALE 8-02 ity of 13:03: [address] traZODone Yes [id number] 50mg Take 1 U nivers 50 mg 8-02 tablet by ity of tablet 00:00: mouth at [place] 00 bedtime. [facility] Branch SERTraline Yes [id number] 50mg Take 1 Univers (ZOLOFT) 50 8-02 tablet by ity of mg tablet 00:00: [place] 00 the Medical morning. Branch traZODone 0 Yes [id number] 50mg Take 1 U nivers 50 mg 8-02 tablet by ity of tablet 00:00: mouth at [place] 00 bedtime. [facility] Branch SERTraline Yes [id number] 50mg Take 1 Univers (ZOLOFT) 50 8-02 tablet by ity of mg tablet 00:00: mouth [place] 00 the Medical morning. Branch traZODone Yes [id number] 50mg Take 1 U nivers 50 mg 8-02 tablet by ity of tablet 00:00: mouth at [place] 00 bedtime. [facility] Branch SERTraline 0 Yes [id number] 50mg Take 1 [facility] (ZOLOFT) 50 8-02 tablet by ity of mg tablet 00:00: mouth in [place] 00 the Medical morning. Branch traZODone 2021-0 Yes [id number] 50mg Take 1 U nivers 50 mg 8-02 tablet by ity of tablet 00:00: mouth at [place] 00 bedtime. Medical Branch SERTraline 2021-0 Yes 50mg Take 1 [facility] (ZOLOFT) 50 8-02 tablet by ity of mg tablet 00:00: mouth in [place] 00 the Medical morning. Branch traZODone 2021-0 Yes [id number] 50mg Take 1 U nivers 50 mg 8-02 tablet by ity of tablet 00:00: mouth at [place] 00 bedtime. Medical Branch SERTraline 0 Yes 50mg Take 1 [facility] (ZOLOFT) 50 8-02 tablet by ity of mg tablet 00:00: mouth in [place] 00 the Medical morning. Branch traZODone 2021-0 Yes [id number] 50mg Take 1 U nivers 50 mg 8-02 tablet by ity of tablet 00:00: mouth at [place] 00 bedtime. Medical Branch SERTraline 0 Yes [id number] 50mg Take 1 [facility] (ZOLOFT) 50 8-02 tablet by ity of mg tablet 00:00: mouth in [place] 00 the Medical morning. Branch traZODone 2021-0 Yes [id number] 50mg Take 1 U nivers 50 mg 8-02 tablet by ity of tablet 00:00: mouth at [place] 00 bedtime. Medical Branch SERTraline 2021-0 Yes 50mg Take 1 [facility] (ZOLOFT) 50 8-02 tablet by ity of mg tablet 00:00: mouth in [place] 00 the Medical morning. Branch traZODone 2021-0 Yes [id number] 50mg Take 1 U nivers 50 mg 8-02 tablet by ity of tablet 00:00: mouth at [place] 00 bedtime. Medical Branch SERTraline 2021-0 Yes [id number] 50mg Take 1 [facility] (ZOLOFT) 50 8-02 tablet by ity of mg tablet 00:00: mouth [place] 00 the Medical morning. Branch traZODone 2021-0 Yes [id number] 50mg Take 1 U nivers 50 mg 8-02 tablet by ity of tablet 00:00: mouth at [place] 00 bedtime. Medical Branch SERTraline Yes [id number] 50mg Take 1 [facility] (ZOLOFT) 50 8-02 tablet by ity of mg tablet 00:00: mouth in [place] 00 the Medical morning. Branch traZODone Yes [id number] 50mg Take 1 U nivers 50 mg 8-02 tablet by ity of tablet 00:00: mouth at [place] 00 bedtime. Medical Branch SERTraline Yes [id number] 50mg Take 1 [facility] (ZOLOFT) 50 8-02 tablet by ity of mg tablet 00:00: mouth in [place] 00 the Medical morning. Branch traZODone Yes [id number] 50mg Take 1 U nivers 50 mg 8-02 tablet by ity of tablet 00:00: mouth at [place] 00 bedtime. Medical Branch SERTraline Yes [id number] 50mg Take 1 [facility] (ZOLOFT) 50 8-02 tablet by ity of mg tablet 00:00: mouth in [place] 00 the Medical morning. Branch traZODone 2021- No [id number] 50mg Take 1 [facility] 50 mg 8-02 10-18 tablet by ity of tablet 00:00: 00:00 mouth at [place] 00 :00 bedtime. Medical Branch SERTraline 2021- No [id number] 50mg Take 1 [facility] (ZOLOFT) 50 8-02 10-18 tablet by it y of mg tablet 00:00: 00:00 mouth in [place] as 00 :00 the Medical morning. Branch traZODone 2021- No [id number] 50mg Take 1 [facility] 50 mg 8-02 10-18 tablet by ity of tablet 00:00: 00:00 mouth at [place] 00 :00 bedtime. Medical Branch SERTraline 2021- No [id number] 50mg Take 1 Univers (ZOLOFT) 50 8-02 10-18 tablet by it y of mg tablet 00:00: 00:00 mouth in [place] as 00 :00 the Medical morning. Branch traZODone 2021- No [id number] 50mg Take 1 [facility] 50 mg 8-02 10-18 tablet by ity of tablet 00:00: 00:00 mouth at [place] 00 :00 bedtime. Medical Branch SERTraline 2021- No [id number] 50mg Take 1 Univers (ZOLOFT) 50 12-12 tablet by it y of mg tablet 00:00: 00:00 mouth in [facility] as 00 :00 the Medical morning. Branch traZODone 2021- No [id number] 50mg Take 1 [facility] 50 mg 12-1218 tablet by ity of tablet 00:00: 00:00 mouth at [place] 00 :00 bedtime. Medical Branch SERTraline 2021- No [id number] 50mg Take 1 Univers (ZOLOFT) 50 12-1218 tablet by it y of mg tablet 00:00: 00:00 mouth in [facility] as 00 :00 the Medical morning. Branch sulfamethox 2021- No [id number] 1{tbl} Take 1 Univers azole-trime 12-12 tablet by it y of thoprim 00:00: 04:59 mouth in [place] (BACTRIM 00 :00 the Medical DS) 800-160 morning Branc h mg per and 1 tablet tablet in the evening. Do all this for 3 days. ibuprofen 2021-0 Yes [id number] 600mg Take 1 [facility] 600 mg 7-15 tablet by ity of tablet 00:00: mouth [place] 00 every 6 Medical (six) Branch hours as needed for Pain (scale 4-6). ibuprofen 2021-0 Yes [id number] 600mg Take 1 [facility] 600 mg 7-15 tablet by ity of tablet 00:00: mouth [place] [address] every 6 Medical (six) Branch hours as needed for Pain (scale 4-6). ibuprofen 2021-0 Yes [id number] 600mg Take 1 [facility] 600 mg 7-15 tablet by ity of tablet 00:00: mouth [place] [address] every 6 Medical (six) Branch hours as needed for Pain (scale 4-6). ibuprofen 2021-0 Yes [id number] 600mg Take 1 [facility] 600 mg 7-15 tablet by ity of tablet 00:00: mouth [place] [address] every 6 Medical (six) Branch hours as needed for Pain (scale 4-6). ibuprofen 2021-0 Yes [id number] 600mg Take 1 [facility] 600 mg 7-15 tablet by ity of tablet 00:00: mouth [place] 00 every 6 Medical (six) Branch hours as needed for Pain (scale 4-6). ibuprofen 2022-0 Yes [id number] 600mg Take 1 [facility] 600 mg 7-15 tablet by ity of tablet 00:00: mouth [place] 00 every 6 Medical (six) Branch hours as needed for Pain (scale 4-6). ibuprofen 2-0 Yes [id number] 600mg Take 1 [facility] 600 mg 7-15 tablet by ity of tablet 00:00: mouth [place] 00 every 6 Medical (six) Branch hours as needed for Pain (scale 4-6). ibuprofen 2021-0 Yes [id number] 600mg Take 1 [facility] 600 mg 7-15 tablet by ity of tablet 00:00: mouth [place] 00 every 6 Medical (six) Branch hours as needed for Pain (scale 4-6). ibuprofen 2021-0 Yes [id number] 600mg Take 1 [facility] 600 mg 7-15 tablet by ity of tablet 00:00: mouth [place] 00 every 6 Medical (six) Branch hours as needed for Pain (scale 4-6). ibuprofen 2021-0 Yes [id number] 600mg Take 1 [facility] 600 mg 7-15 tablet by ity of tablet 00:00: mouth [place] 00 every 6 Medical (six) Branch hours as needed for Pain (scale 4-6). ibuprofen 2021-0 Yes [id number] 600mg Take 1 [facility] 600 mg 7-15 tablet by ity of tablet 00:00: mouth [place] 00 every 6 Medical (six) Branch hours as needed for Pain (scale 4-6). ibuprofen 2022-0 2022- No [id number] 600mg Take 1 [facility] 600 mg 7-15 10-18 tablet by ity of tablet 00:00: 00:00 mouth [place] 00 :00 every 6 Medical (six) Branch hours as needed for Pain (scale 4-6). ibuprofen 2022-0 2022- No [id number] 600mg Take 1 [facility] 600 mg 7-15 10-18 tablet by ity of tablet 00:00: 00:00 mouth [place] 00 :00 every 6 Medical (six) Branch hours as needed for Pain (scale 4-6). ibuprofen 2022-0 2022- No [id number] 600mg Take 1 [facility] 600 mg 7-15 10-18 tablet by ity of tablet 00:00: 00:00 mouth [place] 00 :00 every 6 Medical (six) Branch hours as needed for Pain (scale 4-6). ibuprofen 2021- No [id number] 600mg Take 1 [facility] 600 mg 7-15 [...] Indication s: acute pain bromphenira 0 Yes [id number] 5mL Take 5 mL [facility] mine-pseudo 7-09 by mouth 4 it y of ephedrine-D 00:00: (four) [place] M (BROMFED 00 times Medical DM) 2-30-10 daily as Bran ch mg/5 mL needed for syrup Congestion /Allergies or Cough. naproxen 2021-0 Yes [id number] 500mg Take 1 U nivers 500 mg 7-09 tablet by ity of tablet 00:00: mouth [place] 00 every 8 Medical (eight) Branch hours as needed for Pain (scale 4-6). cyclobenzap 2021-0 Yes [id number] 10mg Take 1 Univers rine 10 mg 7-09 tablet by ity of tablet 00:00: mouth at [place] 00 bedtime as Medical needed for Branch Muscle Spasms. bromphenira 2021-0 Yes [id number] 5mL Take 5 mL [facility] mine-pseudo 7-09 by mouth 4 it y of ephedrine-D 00:00: (four) [place] M (BROMFED 00 times Medical DM) 2-30-10 daily as Bran ch mg/5 mL needed for syrup Congestion /Allergies or Cough. naproxen 2021-0 Yes [id number] 500mg Take 1 U nivers 500 mg 7-09 tablet by ity of tablet 00:00: mouth [place] 00 every 8 Medical (eight) Branch hours as needed for Pain (scale 4-6). cyclobenzap 2021-0 Yes [id number] 10mg Take 1 [facility] rine 10 mg 7-09 tablet by ity of tablet 00:00: mouth at [place] 00 bedtime as Medical needed for Branch Muscle Spasms. bromphenira 2021-0 Yes [id number] 5mL Take 5 mL [facility] mine-pseudo 7-09 by mouth 4 it y of ephedrine-D 00:00: (four) [place] M (BROMFED 00 times Medical DM) 2-30-10 daily as Bran ch mg/5 mL needed for syrup Congestion /Allergies or Cough. naproxen 2021-0 Yes [id number] 500mg Take 1 U nivers 500 mg 7-09 tablet by ity of tablet 00:00: mouth [place] 00 every 8 Medical (eight) Branch hours as needed for Pain (scale 4-6). cyclobenzap 2021-0 Yes [id number] 10mg Take 1 Univers rine 10 mg 7-09 tablet by ity of tablet 00:00: mouth at [place] 00 bedtime as Medical needed for Branch Muscle Spasms. bromphenira 2021-0 Yes [id number] 5mL Take 5 mL [facility] mine-pseudo 7-09 by mouth 4 it y of ephedrine-D 00:00: (four) [place] M (BROMFED 00 times Medical DM) 2-30-10 daily as Bran ch mg/5 mL needed for syrup Congestion /Allergies or Cough. naproxen 2021-0 Yes [id number] 500mg Take 1 U nivers 500 mg 7-09 tablet by ity of tablet 00:00: mouth [place] 00 every 8 Medical (eight) Branch hours as needed for Pain (scale 4-6). cyclobenzap 2021-0 Yes [id number] 10mg Take 1 [facility] rine 10 mg 7-09 tablet by ity of tablet 00:00: mouth at [place] 00 bedtime as Medical needed for Branch Muscle Spasms. bromphenira 2021-0 Yes [id number] 5mL Take 5 mL [facility] mine-pseudo 7-09 by mouth 4 it y of ephedrine-D 00:00: (four) [place] M (BROMFED 00 times Medical DM) 2-30-10 daily as Bran ch mg/5 mL needed for syrup Congestion /Allergies or Cough. naproxen 2021-0 Yes [id number] 500mg Take 1 U nivers 500 mg 7-09 tablet by ity of tablet 00:00: mouth [place] 00 every 8 Medical (eight) Branch hours as needed for Pain (scale 4-6). cyclobenzap 2022-0 Yes [id number] 10mg Take 1 [facility] rine 10 mg 7-09 tablet by ity of tablet 00:00: mouth at [place] 00 bedtime as Medical needed for Branch Muscle Spasms. bromphenira 2022-0 Yes [id number] 5mL Take 5 mL [facility] mine-pseudo 7-09 by mouth 4 it y of ephedrine-D 00:00: (four) [place] M (BROMFED 00 times Medical DM) 2-30-10 daily as Bran ch mg/5 mL needed for syrup Congestion /Allergies or Cough. naproxen 2-0 Yes [id number] 500mg Take 1 U nivers 500 mg 7-09 tablet by ity of tablet 00:00: mouth [place] 00 every 8 Medical (eight) Branch hours as needed for Pain (scale 4-6). cyclobenzap 2-0 Yes [id number] 10mg Take 1 [facility] rine 10 mg 7-09 tablet by ity of tablet 00:00: mouth at [place] 00 bedtime as Medical needed for Branch Muscle Spasms. bromphenira 2-0 Yes [id number] 5mL Take 5 mL [facility] mine-pseudo 7-09 by mouth 4 it y of ephedrine-D 00:00: (four) [place] M (BROMFED 00 times Medical DM) 2-30-10 daily as Bran ch mg/5 mL needed for syrup Congestion /Allergies or Cough. naproxen 2-0 Yes [id number] 500mg Take 1 U nivers 500 mg 7-09 tablet by ity of tablet 00:00: mouth [place] 00 every 8 Medical (eight) Branch hours as needed for Pain (scale 4-6). cyclobenzap 2022-0 Yes [id number] 10mg Take 1 [facility] rine 10 mg 7-09 tablet by ity of tablet 00:00: mouth at [place] 00 bedtime as Medical needed for Branch Muscle Spasms. bromphenira 2022-0 Yes [id number] 5mL Take 5 mL [facility] mine-pseudo 7-09 by mouth 4 it y of ephedrine-D 00:00: (four) [place] M (BROMFED 00 times Medical DM) 2-30-10 daily as Bran ch mg/5 mL needed for syrup Congestion /Allergies or Cough. naproxen 2-0 Yes [id number] 500mg Take 1 U nivers 500 mg 7-09 tablet by ity of tablet 00:00: mouth [place] 00 every 8 Medical (eight) Branch hours as needed for Pain (scale 4-6). cyclobenzap 2-0 Yes [id number] 10mg Take 1 Univers rine 10 mg 7-09 tablet by ity of tablet 00:00: mouth at [place] 00 bedtime as Medical needed for Branch Muscle Spasms. bromphenira 2-0 Yes [id number] 5mL Take 5 mL [facility] mine-pseudo 7-09 by mouth 4 it y of ephedrine-D 00:00: (four) [place] M (BROMFED 00 times Medical DM) 2-30-10 daily as Bran ch mg/5 mL needed for syrup Congestion /Allergies or Cough. naproxen 2-0 Yes [id number] 500mg Take 1 U nivers 500 mg 7-09 tablet by ity of tablet 00:00: mouth [place] 00 every 8 Medical (eight) Branch hours as needed for Pain (scale 4-6). cyclobenzap 2021-0 Yes [id number] 10mg Take 1 [facility] rine 10 mg 7-09 tablet by ity of tablet 00:00: mouth at [place] 00 bedtime as Medical needed for Branch Muscle Spasms. bromphenira 2-0 Yes [id number] 5mL Take 5 mL [facility] mine-pseudo 7-09 by mouth 4 it y of ephedrine-D 00:00: (four) [place] M (BROMFED 00 times Medical DM) 2-30-10 daily as Bran ch mg/5 mL needed for syrup Congestion /Allergies or Cough. naproxen 2-0 Yes [id number] 500mg Take 1 U nivers 500 mg 7-09 tablet by ity of tablet 00:00: mouth [place] 00 every 8 Medical (eight) Branch hours as needed for Pain (scale 4-6). cyclobenzap 2022-0 Yes [id number] 10mg Take 1 Univers rine 10 mg 7-09 tablet by ity of tablet 00:00: mouth at [place] 00 bedtime as Medical needed for Branch Muscle Spasms. bromphenira 2022-0 Yes [id number] 5mL Take 5 mL [facility] mine-pseudo 7-09 by mouth 4 it y of ephedrine-D 00:00: (four) [place] M (BROMFED 00 times Medical DM) 2-30-10 daily as Bran ch mg/5 mL needed for syrup Congestion /Allergies or Cough. naproxen 2021-0 Yes [id number] 500mg Take 1 U nivers 500 mg 7-09 tablet by ity of tablet 00:00: mouth [place] 00 every 8 Medical (eight) Branch hours as needed for Pain (scale 4-6). cyclobenzap 2021-0 Yes [id number] 10mg Take 1 [facility] rine 10 mg 7-09 tablet by ity of tablet 00:00: mouth at [place] 00 bedtime as Medical needed for Branch Muscle Spasms. bromphenira 0 Yes [id number] 5mL Take 5 mL [facility] mine-pseudo 7-09 by mouth 4 it y of ephedrine-D 00:00: (four) [place] M (BROMFED 00 times Medical DM) 2-30-10 daily as Bran ch mg/5 mL needed for syrup Congestion /Allergies or Cough. bromphenira 2021-0 Yes [id number] 5mL Take 5 mL [facility] mine-pseudo 7-09 by mouth 4 it y of ephedrine-D 00:00: (four) [place] M (BROMFED 00 times Medical DM) 2-30-10 daily as Bran ch mg/5 mL needed for syrup Congestion /Allergies or Cough. bromphenira 2021-0 Yes [id number] 5mL Take 5 mL [facility] mine-pseudo 7-09 by mouth 4 it y of ephedrine-D 00:00: (four) [place] M (BROMFED 00 times Medical DM) 2-30-10 daily as Bran ch mg/5 mL needed for syrup Congestion /Allergies or Cough. bromphenira 2021-0 Yes [id number] 5mL Take 5 mL [facility] mine-pseudo 7-09 by mouth 4 it y of ephedrine-D 00:00: (four) [place] M (BROMFED 00 times Medical DM) 2-30-10 daily as Bran ch mg/5 mL needed for syrup Congestion /Allergies or Cough. bromphenira 2021-0 Yes [id number] 5mL Take 5 mL [facility] mine-pseudo 7-09 by mouth 4 it y of ephedrine-D 00:00: (four) [place] M (BROMFED 00 times Medical DM) 2-30-10 daily as Bran ch mg/5 mL needed for syrup Congestion /Allergies or Cough. bromphenira 2021-0 Yes [id number] 5mL Take 5 mL [facility] mine-pseudo 7-09 by mouth 4 it y of ephedrine-D 00:00: (four) [place] M (BROMFED 00 times Medical DM) 2-30-10 daily as Bran ch mg/5 mL needed for syrup Congestion /Allergies or Cough. bromphenira 2021-0 Yes [id number] 5mL Take 5 mL [facility] mine-pseudo 7-09 by mouth 4 it y of ephedrine-D 00:00: (four) [place] M (BROMFED 00 times Medical DM) 2-30-10 daily as Bran ch mg/5 mL needed for syrup Congestion /Allergies or Cough. bromphenira 2021-0 Yes [id number] 5mL Take 5 mL [facility] mine-pseudo 7-09 by mouth 4 it y of ephedrine-D 00:00: (four) [place] (BROMFED 00 times Medical DM) 2-30-10 daily as Bran ch mg/5 mL needed for syrup Congestion /Allergies or Cough. bromphenira 2021-0 Yes [id number] 5mL Take 5 mL [facility] mine-pseudo 7-09 by mouth 4 it y of ephedrine-D 00:00: (four) [place] (BROMFED 00 times Medical DM) 2-30-10 daily as Bran ch mg/5 mL needed for syrup Congestion /Allergies or Cough. bromphenira 2021-0 Yes [id number] 5mL Take 5 mL [facility] mine-pseudo 7-09 by mouth 4 it y of ephedrine-D 00:00: (four) [place] (BROMFED 00 times Medical DM) 2-30-10 daily as Bran ch mg/5 mL needed for syrup Congestion /Allergies or Cough. bromphenira 2-0 Yes [id number] 5mL Take 5 mL [facility] mine-pseudo 7-09 by mouth 4 it y of ephedrine-D 00:00: (four) [place] (BROMFED 00 times Medical DM) 2-30-10 daily as Bran ch mg/5 mL needed for syrup Congestion /Allergies or Cough. bromphenira 2021-0 Yes [id number] 5mL Take 5 mL [facility] mine-pseudo 7-09 by mouth 4 it y of ephedrine-D 00:00: (four) [place] (BROMFED 00 times Medical DM) 2-30-10 daily as Bran ch mg/5 mL needed for syrup Congestion /Allergies or Cough. bromphenira 2021-0 Yes [id number] 5mL Take 5 mL [facility] mine-pseudo 7-09 by mouth 4 it y of ephedrine-D 00:00: (four) [place] (BROMFED 00 times Medical DM) 2-30-10 daily as Bran ch mg/5 mL needed for syrup Congestion /Allergies or Cough. bromphenira 2021-0 Yes [id number] 5mL Take 5 mL [facility] mine-pseudo 7-09 by mouth 4 it y of ephedrine-D 00:00: (four) [place] (BROMFED 00 times Medical DM) 2-30-10 daily as Bran ch mg/5 mL needed for syrup Congestion /Allergies or Cough. bromphenira 2021- No [id number] 5mL Take 5 mL [facility] mine-pseudo 7- 11-12 by mouth 4 i ty of ephedrine-D 00:00: 00:00 (four) [place] M (BROMFED 00 :00 times Medical DM) 2-30-10 daily as Bran ch mg/5 mL needed for syrup Congestion /Allergies or Cough. naproxen 2021- No [id number] 500mg Take 1 [facility] 500 mg 7- 10-18 tablet by ity of tablet 00:00: 00:00 mouth [place] 00 :00 every 8 Medical (eight) Branch hours as needed for Pain (scale 4-6). cyclobenzap 2021-2021- No [id number] 10mg Take 1 [facility] rine 10 mg 7- 10-18 tablet by ity of tablet 00:00: 00:00 mouth at [place] 00 :00 bedtime as Medical needed for Branch Muscle Spasms. naproxen 2021-0 2021- No [id number] 500mg Take 1 [facility] 500 mg 7- 10-18 tablet by ity of tablet 00:00: 00:00 mouth [place] 00 :00 every 8 Medical (eight) Branch hours as needed for Pain (scale 4-6). cyclobenzap No [id number] 10mg Take 1 [facility] rine 10 mg 7 10-18 tablet by ity of tablet 00:00: 00:00 mouth at [place] 00 :00 bedtime as Medical needed for Branch Muscle Spasms. naproxen No [id number] 500mg Take 1 [facility] 500 mg 7 10-18 tablet by ity of tablet 00:00: 00:00 mouth [place] 00 :00 every 8 Medical (eight) Branch hours as needed for Pain (scale 4-6). cyclobenzap No [id number] 10mg Take 1 [facility] rine 10 mg 11-18 1018 tablet by ity of tablet 00:00: 00:00 mouth at [place] 00 :00 bedtime as Medical needed for Branch Muscle Spasms. naproxen No [id number] 500mg Take 1 [facility] 500 mg 7 10-18 tablet by ity of tablet 00:00: 00:00 mouth [place] 00 :00 every 8 Medical (eight) Branch hours as needed for Pain (scale 4-6). cyclobenzap No [id number] 10mg Take 1 [facility] rine 10 mg 11-1818 tablet by ity of tablet 00:00: 00:00 mouth at [place] 00 :00 bedtime as Medical needed for Branch Muscle Spasms. ibuprofen Yes [id number] 605mg Take 30.25 Univers 100 mg/5 mL 6-15 mL by ity of oral 00:00: mouth [place] suspension 00 every 6 Medica l (six) Branch hours as needed for Pain (scale 4-6) or Temp > 38.5 C. ibuprofen 0 Yes [id number] 605mg Take 30.25 [facility] 100 mg/5 mL 6-15 mL by ity of oral 00:00: mouth [place] suspension 00 every 6 Medica l (six) Branch hours as needed for Pain (scale 4-6) or Temp > 38.5 C. ibuprofen Yes [id number] 605mg Take 30.25 [facility] 100 mg/5 mL 6-15 mL by ity of oral 00:00: mouth [place] suspension 00 every 6 Medica l (six) Branch hours as needed for Pain (scale 4-6) or Temp > 38.5 C. ibuprofen 2022-0 Yes [id number] 605mg Take 30.25 [facility] 100 mg/5 mL 6-15 mL by ity of oral 00:00: mouth [place] suspension 00 every 6 Medica l (six) Branch hours as needed for Pain (scale 4-6) or Temp > 38.5 C. ibuprofen 2022-0 Yes [id number] 605mg Take 30.25 [facility] 100 mg/5 mL 6-15 mL by ity of oral 00:00: mouth [place] suspension 00 every 6 Medica l (six) Branch hours as needed for Pain (scale 4-6) or Temp > 38.5 C. ibuprofen 2022-0 Yes [id number] 605mg Take 30.25 [facility] 100 mg/5 mL 6-15 mL by ity of oral 00:00: mouth [place] suspension 00 every 6 Medica l (six) Branch hours as needed for Pain (scale 4-6) or Temp > 38.5 C. ibuprofen 2022-0 Yes [id number] 605mg Take 30.25 [facility] 100 mg/5 mL 6-15 mL by ity of oral 00:00: mouth [place] suspension 00 every 6 Medica l (six) Branch hours as needed for Pain (scale 4-6) or Temp > 38.5 C. ibuprofen 2022-0 Yes [id number] 605mg Take 30.25 [facility] 100 mg/5 mL 6-15 mL by ity of oral 00:00: mouth [place] suspension 00 every 6 Medica l (six) Branch hours as needed for Pain (scale 4-6) or Temp > 38.5 C. ibuprofen 2022-0 Yes [id number] 605mg Take 30.25 [facility] 100 mg/5 mL 6-15 mL by ity of oral 00:00: mouth [place] suspension 00 every 6 Medica l (six) Branch hours as needed for Pain (scale 4-6) or Temp > 38.5 C. ibuprofen 2022-0 Yes [id number] 605mg Take 30.25 [facility] 100 mg/5 mL 6-15 mL by ity of oral 00:00: mouth [place] suspension 00 every 6 Medica l (six) Branch hours as needed for Pain (scale 4-6) or Temp > 38.5 C. ibuprofen Yes [id number] 605mg Take 30.25 [facility] 100 mg/5 mL 6-15 mL by ity of oral 00:00: mouth [place] suspension 00 every 6 Medica l (six) Branch hours as needed for Pain (scale 4-6) or Temp > 38.5 C. ibuprofen 2021- No [id number] 605mg Take 30.25 [facility] 100 mg/5 mL 6-15 10-18 mL by ity of oral 00:00: 00:00 mouth [place] suspension 00 :00 every 6 Medica l (six) Branch hours as needed for Pain (scale 4-6) or Temp > 38.5 C. ibuprofen 2021- No [id number] 605mg Take 30.25 [facility] 100 mg/5 mL 6-15 10-18 mL by ity of oral 00:00: 00:00 mouth [place] suspension 00 :00 every 6 Medica l (six) Branch hours as needed for Pain (scale 4-6) or Temp > 38.5 C. ibuprofen 2021- No [id number] 605mg Take 30.25 [facility] 100 mg/5 mL 6-15 10-18 mL by ity of oral 00:00: 00:00 mouth [place] suspension 00 :00 every 6 Medica l (six) Branch hours as needed for Pain (scale 4-6) or Temp > 38.5 C. ibuprofen 2021- No [id number] 605mg Take 30.25 [facility] 100 mg/5 mL 6-15 10-18 mL by ity of oral 00:00: 00:00 mouth [place] suspension 00 :00 every 6 Medica l (six) Branch hours as needed for Pain (scale 4-6) or Temp > 38.5 C. acetaminoph 2021- No [id number] 608mg Take 19 mL [facility] en 160 mg/5 6-15 08-02 by mouth ity of mL liquid 00:00: 00:00 [place] 6 [place] (six) Medical hours as Branch needed for Fever. DULoxetine Yes [facility] 60 mg 5-27 ity of capsule 00:00: [place] 00 Medical Branch DULoxetine 2022-0 Yes [facility] 60 mg 5-27 ity of capsule 00:00: [place] 00 [facility] DULoxetine 2-0 Yes [facility] 60 mg 5-27 ity of capsule 00:00: [place] 00 [facility] DULoxetine 2-0 Yes [facility] 60 mg 5-27 ity of capsule 00:00: [place] [address] [facility] Branch DULoxetine 2-0 Yes [facility] 60 mg 5-27 ity of capsule 00:00: [place] [address] [facility] Branch DULoxetine 2-0 Yes [facility] 60 mg 5-27 ity of capsule 00:00: [place] [address] [facility] Branch DULoxetine 2-0 Yes [facility] 60 mg 5-27 ity of capsule 00:00: [place] [address] [facility] Branch DULoxetine 2-0 Yes [facility] 60 mg 5-27 ity of capsule 00:00: [place] [address] [facility] Branch DULoxetine 2-0 Yes [facility] 60 mg 5-27 ity of capsule 00:00: [place] [address] [facility] Branch DULoxetine 2-0 Yes [facility] 60 mg 5-27 ity of capsule 00:00: [place] [address] [facility] Branch DULoxetine 2021-0 Yes [facility] 60 mg 5-27 ity of capsule 00:00: [place] 00 Medical Branch DULoxetine 2021-0 2022- No [...] [place] 00 :00 Medical [facility] traZODone 2-0 2022- No [facility] 50 mg 5-27 08-02 ity of tablet 00:00: 00:00 [place] 00 :00 Medical Branch mometasone 2021-0 Yes [id number] 1{spray Use 1 [facility] 50 5-19 } [place] in ity of mcg/actuati 00:00: each [place] on nasal 00 nostril 2 Medica l spray (two) Branch times daily. mometasone 2021-0 Yes [id number] 1{spray Use 1 [facility] 50 5-19 } [place] [facility] ity of mcg/actuati 00:00: each [place] on nasal 00 nostril 2 Medica l spray (two) Branch times daily. mometasone 2021-0 Yes [id number] 1{spray Use 1 [facility] 50 5-19 } [place] [facility] ity of mcg/actuati 00:00: each [place] on nasal 00 nostril 2 Medica l spray (two) Branch times daily. mometasone 2021-0 Yes [id number] 1{spray Use 1 [facility] 50 5-19 } [place] in ity of mcg/actuati 00:00: each [place] on nasal 00 nostril 2 Medica l spray (two) Branch times daily. mometasone 2021-0 Yes [id number] 1{spray Use 1 [facility] 50 5-19 } [place] [facility] ity of mcg/actuati 00:00: each [place] on nasal 00 nostril 2 Medica l spray (two) Branch times daily. mometasone 2021-0 Yes [id number] 1{spray Use 1 [facility] 50 5-19 } [place] in ity of mcg/actuati 00:00: each [place] on nasal 00 nostril 2 Medica l spray (two) Branch times daily. mometasone 2021-0 Yes [id number] 1{spray Use 1 [facility] 50 5-19 } [place] in ity of mcg/actuati 00:00: each [place] on nasal 00 nostril 2 Medica l spray (two) Branch times daily. mometasone 2021-0 Yes [id number] 1{spray Use 1 [facility] 50 5-19 } [place] in ity of mcg/actuati 00:00: each [place] on nasal 00 nostril 2 Medica l spray (two) Branch times daily. mometasone 2021-0 Yes [id number] 1{spray Use 1 [facility] 50 5-19 } [place] in ity of mcg/actuati 00:00: each [place] on nasal 00 nostril 2 Medica l spray (two) Branch times daily. mometasone 2021-0 Yes [id number] 1{spray Use 1 [facility] 50 5-19 } [place] in ity of mcg/actuati 00:00: each [place] on nasal 00 nostril 2 Medica l spray (two) Branch times daily. mometasone Yes [id number] 1{spray Use 1 [facility] 50 5-19 } [place] in ity of mcg/actuati 00:00: each [place] on nasal 00 nostril 2 Medica l spray (two) Branch times daily. mometasone 2021- No [id number] 1{spray Use 1 [facility] 50 5-19 10-18 } [place] [facility] ity of mcg/actuati 00:00: 00:00 each [place] on nasal 00 :00 nostril 2 Medica l spray (two) Branch times daily. mometasone 2021- No [id number] 1{spray Use 1 [facility] 50 5-19 10-18 } [place] [facility] ity of mcg/actuati 00:00: 00:00 each [place] on nasal 00 :00 nostril 2 Medica l spray (two) Branch times daily. mometasone 2021- No [id number] 1{spray Use 1 [facility] 50 5-19 10-18 } [place] [facility] ity of mcg/actuati 00:00: 00:00 each [place] on nasal 00 :00 nostril 2 Medica l spray (two) Branch times daily. mometasone 2021- No [id number] 1{spray Use 1 [facility] 50 5-19 10-18 } [place] [facility] ity of mcg/actuati 00:00: 00:00 each [place] on nasal 00 :00 nostril 2 Medica l spray (two) Branch times daily. cetirizine Yes [id number] 10mg Take 1 U nivers (ZYRTEC) 10 5-16 tablet by ity of mg tablet 00:00: mouth [place] 00 daily. Medical Branch cetirizine Yes [id number] 10mg Take 1 U nivers (ZYRTEC) 10 5-16 tablet by ity of mg tablet 00:00: mouth [place] 00 daily. Medical Branch cetirizine Yes [id number] 10mg Take 1 U nivers (ZYRTEC) 10 5-16 tablet by ity of mg tablet 00:00: mouth [place] 00 daily. Medical Branch cetirizine Yes [id number] 10mg Take 1 U nivers (ZYRTEC) 10 5-16 tablet by ity of mg tablet 00:00: mouth [place] 00 daily. [facility] cetirizine Yes [id number] 10mg Take 1 U nivers (ZYRTEC) 10 5-16 tablet by ity of mg tablet 00:00: mouth [place] 00 daily. [facility] Branch cetirizine Yes [id number] 10mg Take 1 U nivers (ZYRTEC) 10 5-16 tablet by ity of mg tablet 00:00: mouth [place] 00 daily. [facility] Branch cetirizine Yes [id number] 10mg Take 1 U nivers (ZYRTEC) 10 5-16 tablet by ity of mg tablet 00:00: mouth [place] 00 daily. [facility] Branch cetirizine Yes [id number] 10mg Take 1 U nivers (ZYRTEC) 10 5-16 tablet by ity of mg tablet 00:00: mouth [place] 00 daily. [facility] Branch cetirizine Yes [id number] 10mg Take 1 U nivers (ZYRTEC) 10 5-16 tablet by ity of mg tablet 00:00: mouth [place] 00 daily. [facility] cetirizine Yes [id number] 10mg Take 1 U nivers (ZYRTEC) 10 5-16 tablet by ity of mg tablet 00:00: mouth [place] 00 daily. [facility] Branch cetirizine Yes [id number] 10mg Take 1 U nivers (ZYRTEC) 10 5-16 tablet by ity of mg tablet 00:00: mouth [place] 00 daily. [facility] cetirizine 2021- No [id number] 10mg Take 1 Univers (ZYRTEC) 10 5-16 10-18 tablet by it y of mg tablet 00:00: 00:00 mouth [place] 00 :00 daily. [facility] Branch cetirizine 2021- No [id number] 10mg Take 1 Univers (ZYRTEC) 10 5-16 10-18 tablet by it y of mg tablet 00:00: 00:00 mouth [place] 00 :00 daily. [facility] Branch cetirizine 2021- No [id number] 10mg Take 1 Univers (ZYRTEC) 10 5-16 10-18 tablet by it y of mg tablet 00:00: 00:00 mouth [place] 00 :00 daily. Medical Branch cetirizine 2-0 2022- No [id number] 10mg Take 1 Univers (ZYRTEC) 10 5-16 [...] 30 mg 5-09 ity of capsule 00:00: [place] [address] Medical Branch gabapentin 2022-0 Yes Univers 300 [...] 4 mg tablet 5-09 ity of 00:00: [place] [address] Medical Branch DULoxetine 2022-0 Yes [facility] 30 mg 5-09 ity of capsule 00:00: [place] [address] Medical Branch gabapentin 2022-0 Yes [facility] 300 mg 5-09 ity of capsule 00:00: [place] 00 Medical Branch ondansetron 2022-0 Yes Univer s 4 mg tablet 5-09 ity of 00:00: [place] 00 Medical Branch DULoxetine 2022-0 Yes [facility] 30 mg 5-09 ity of capsule 00:00: [place] [address] Medical Branch gabapentin 2022-0 Yes [facility] 300 mg 5-09 ity of capsule 00:00: [place] 00 Medical Branch ondansetron 2022-0 Yes Univer s 4 mg tablet 5-09 ity of 00:00: [place] [address] Medical Branch DULoxetine 2022-0 Yes [facility] 30 mg 5-09 ity of capsule 00:00: [place] [address] Medical Branch gabapentin 2022-0 Yes [facility] 300 mg 5-09 ity of capsule 00:00: [place] 00 Medical Branch ondansetron 2022-0 Yes Univer s 4 mg tablet 5-09 ity of 00:00: [place] [address] Medical Branch DULoxetine 2022-0 Yes [facility] 30 mg 5-09 ity of capsule 00:00: [place] [address] Medical Branch gabapentin 2022-0 Yes [facility] 300 mg 5-09 ity of capsule 00:00: [place] 00 Medical Branch ondansetron 2022-0 Yes Univer s 4 mg tablet 5-09 ity of 00:00: [place] 00 Medical Branch DULoxetine 2022-0 Yes [facility] 30 mg 5-09 ity of capsule 00:00: [place] [address] Medical Branch gabapentin 2022-0 Yes [facility] 300 mg 5-09 ity of capsule 00:00: [place] [address] Medical Branch ondansetron 2022-0 Yes Univer s 4 mg tablet 5-09 ity of 00:00: [place] [address] Medical Branch DULoxetine 2022-0 Yes [facility] 30 mg 5-09 ity of capsule 00:00: [place] [address] Medical Branch gabapentin 2022-0 Yes [facility] 300 mg 5-09 ity of capsule 00:00: [place] [address] Medical Branch ondansetron 2022-0 Yes Univer s 4 mg tablet 5-09 ity of 00:00: [place] [address] Medical Branch DULoxetine 2022-0 Yes [facility] 30 mg 5-09 ity of capsule 00:00: [place] [address] Medical Branch gabapentin 2022-0 Yes [facility] 300 mg 5-09 ity of capsule 00:00: [place] [address] Medical Branch ondansetron 2022-0 Yes Univer s 4 mg tablet 5-09 ity of 00:00: [place] [address] Medical Branch DULoxetine 2022-0 Yes [facility] 30 mg 5-09 ity of capsule 00:00: [place] [address] Medical Branch gabapentin 2022-0 Yes [facility] 300 mg 5-09 ity of capsule 00:00: [place] [address] Medical Branch ondansetron 2022-0 Yes Univer s [...] [place] 00 :00 Medical Branch DULoxetine 2022-0 2022- No Univer s 30 mg 09-18 ity of capsule 00:00: 00:00 [place] 00 :00 Medical Branch gabapentin 2022-0 2022- No Univer s 300 mg 09-18 ity of capsule 00:00: 00:00 [place] 00 :00 Medical Branch ondansetron 2022-0 2022- No Unive rs 4 mg tablet 09-18 ity of 00:00: 00:00 [place] 00 :00 Medical Branch DULoxetine 2022-0 2022- [...] mg tablet 09-0118 ity of 00:00: 00:00 [place] 00 :00 Medical Branch amLODIPine 2022-0 2022- No 5mg Take 5 mg U nivers 5 mg tablet 09-0118 by mouth. it y of 00:00: 00:00 [place] 00 :00 Medical Branch amLODIPine 2022-0 2022- No Univer s 5 mg tablet 09-0118 ity of 00:00: 00:00 [place] 00 :00 [...] 00:00 [place] 00 :00 Medical Branch buPROPion 2-0 Yes [...] of 24 hr 00:00: [place] tablet 00 [facility] Branch buPROPion 2022- No 150mg Take 150 Un sushant XL 150 mg 4-20 04-21 mg by ity of 24 hr 00:00: 04:59 mouth. [place] tablet 00 :00 Medical Branch buPROPion 2022- No 150mg Take 150 Un sushant XL 150 mg 4-20 04-21 mg by ity of 24 hr 00:00: 04:59 mouth. [place] tablet 00 :00 [facility] Branch buPROPion 2022- No 150mg Take [...] 00:00: 04:59 mouth. [place] tablet 00 :00 [facility] Branch buPROPion 3- No 150mg Take 150 Un sushant XL 150 mg 4-20 04-21 mg by ity of 24 hr 00:00: 04:59 mouth. [place] tablet 00 :00 [facility] Branch buPROPion 3- No 150mg Take [...] by ity o f 00:00: mouth 2 [place] 00 (two) Medical times Branch daily. carvediloL [...] Ordered Filled Immunization Date Status Comments [facility] e Immunization Name Name Influenza Virus 2022-02-27 [...] Vaccine Quad .5 mL 00:00:00 [place] [facility] 6+ [place] [facility] Influenza Virus 2021-06-11 Completed Universit y of Vaccine 00:00:00 [facility] Influenza Virus 2021-06-11 Completed Universit y of Vaccine 00:00:00 [facility] Influenza Virus 2021-06-11 Completed Universit y of Vaccine 00:00:00 [facility] Influenza Virus 2021-06-11 Completed Universit y of Vaccine 00:00:00 [facility] Influenza Virus 2021-06-11 Completed Universit y of Vaccine 00:00:00 [facility] Influenza Virus 2021-06-11 Completed Universit y of Vaccine 00:00:00 [facility] Influenza Virus 2021-06-11 Completed Universit y of Vaccine 00:00:00 [facility] Influenza Virus 2021-06-11 Completed Universit y of Vaccine 00:00:00 [facility] Influenza Virus 2021-06-11 Completed Universit y of Vaccine 00:00:00 [facility] Influenza Virus 2021-06-11 Completed Universit y of Vaccine 00:00:00 [facility] Influenza Virus 2021-06-11 Completed Universit y of Vaccine 00:00:00 [facility] Influenza Virus 2021-06-11 Completed Universit y of Vaccine 00:00:00 [facility] Influenza Virus 2021-06-11 Completed Universit y of Vaccine 00:00:00 [facility] Influenza Virus 2021-06-11 Completed Universit y of Vaccine 00:00:00 [facility] Branch Influenza Virus 2021-06-11 Completed Universit y of Vaccine 00:00:00 [facility] Branch Influenza Virus 2021-06-11 Completed Universit y of Vaccine 00:00:00 [facility] Branch Influenza Virus 2021-06-11 Completed Universit y of Vaccine 00:00:00 [facility] Branch Influenza Virus 2021-06-11 Completed Universit y of Vaccine 00:00:00 [facility] Influenza Virus 2021-06-11 Completed Universit y of Vaccine 00:00:00 [facility] Influenza Virus 2021-06-11 Completed Universit y of Vaccine 00:00:00 [facility] Branch Influenza Virus 2021-06-11 Completed Universit y of Vaccine 00:00:00 [facility] Influenza Virus 2021-06-11 Completed Universit y of Vaccine 00:00:00 [facility] Influenza Virus 2021-06-11 Completed Universit y of Vaccine 00:00:00 [facility] Influenza Virus 2021-06-11 Completed Universit y of Vaccine 00:00:00 [facility] Influenza Virus 2021-06-11 Completed Universit y of Vaccine 00:00:00 [facility] Influenza Virus 2021-06-11 Completed Universit y of Vaccine 00:00:00 [facility] Branch Influenza Virus 2021-06-11 Completed Universit y of Vaccine 00:00:00 [facility] Branch Influenza Virus 2021-06-11 Completed Universit y of Vaccine 00:00:00 [facility] Branch Influenza Virus 2021-06-11 Completed Universit y of Vaccine 00:00:00 [facility] Branch Influenza Virus 2021-06-11 Completed Universit y of Vaccine 00:00:00 [facility] Branch Influenza Virus 2021-06-11 Completed Universit y of Vaccine 00:00:00 [facility] Branch Influenza Virus 2021-06-11 Completed Universit y of Vaccine 00:00:00 [place] [facility] Influenza Virus 2021-06-11 Completed Universit y of Vaccine 00:00:00 [facility] Branch Influenza Virus 2021-06-11 Completed Universit y of Vaccine 00:00:00 [facility] Branch Influenza Virus 2021-06-11 Completed Universit y of Vaccine 00:00:00 [place] [facility] Influenza Virus 2021-06-11 Completed Universit y of Vaccine 00:00:00 [facility] Influenza Virus 2021-06-11 Completed Universit y of Vaccine 00:00:00 [facility] Influenza Virus 2021-06-11 Completed Universit y of Vaccine 00:00:00 [facility] Influenza Virus 2021-06-11 Completed Universit y of Vaccine 00:00:00 [facility] Influenza Virus 2021-06-11 Completed Universit y of Vaccine 00:00:00 [facility] Influenza Virus 2021-06-11 Completed Universit y of Vaccine 00:00:00 [facility] Influenza Virus 2021-06-11 Completed Universit y of Vaccine 00:00:00 [facility] Influenza Virus 2021-06-11 Completed Universit y of Vaccine 00:00:00 [facility] Influenza Virus 2021-06-11 Completed Universit y of Vaccine 00:00:00 [facility] Influenza Virus 2021-06-11 Completed Universit y of Vaccine 00:00:00 [facility] Influenza Virus 2021-06-11 Completed Universit y of Vaccine 00:00:00 [facility] Influenza Virus 2021-06-11 Completed Universit y of Vaccine 00:00:00 [facility] Influenza Virus 2021-06-11 Completed Universit y of Vaccine 00:00:00 [facility] Influenza Virus 2021-06-11 Completed Universit y of Vaccine Quad .5 mL 00:00:00 [facility] 6+ MO Branch Influenza Virus 2021-06-11 Completed Universit y of Vaccine 00:00:00 [facility] Influenza Virus 2021-06-11 Completed Universit y of Vaccine Quad .5 mL 00:00:00 [facility] IM 6+ MO Branch Influenza Virus 2021-06-11 Completed Universit y of Vaccine 00:00:00 [facility] Influenza Virus 2021-06-11 Completed Universit y of Vaccine Quad .5 mL 00:00:00 [facility] IM 6+ MO Branch Influenza Virus 2021-06-11 Completed Universit y of Vaccine 00:00:00 [facility] Influenza Virus 2021-06-11 Completed Universit y of Vaccine Quad .5 mL 00:00:00 [facility] IM 6+ MO Branch Influenza Virus 2021-06-11 Completed Universit y of Vaccine 00:00:00 [facility] Influenza Virus 2021-06-11 Completed Universit y of Vaccine Quad .5 mL 00:00:00 [place] [facility] 6+ MO Branch Influenza Virus 2021-06-11 Completed Universit y of Vaccine 00:00:00 [facility] Influenza Virus 2021-06-11 Completed Universit y of Vaccine Quad .5 mL 00:00:00 [facility] 6+ MO Branch Influenza Virus 2021-06-11 Completed Universit y of Vaccine 00:00:00 [facility] Influenza Virus 2021-06-11 Completed Universit y of Vaccine Quad .5 mL 00:00:00 [facility] 6+ MO Branch Influenza Virus 2021-06-11 Completed Universit y of Vaccine 00:00:00 [facility] Influenza Virus 2021-06-11 Completed Universit y of Vaccine Quad .5 mL 00:00:00 [facility] 6+ MO Branch Influenza Virus 2021-06-11 Completed Universit y of Vaccine 00:00:00 [facility] Influenza Virus 2021-06-11 Completed Universit y of Vaccine Quad .5 mL 00:00:00 [facility] 6+ MO Branch Influenza Virus 2021-06-11 Completed Universit y of Vaccine 00:00:00 [facility] Influenza Virus 2021-06-11 Completed Universit y of Vaccine Quad .5 mL 00:00:00 [facility] 6+ MO Branch Influenza Virus 2021-06-11 Completed Universit y of Vaccine 00:00:00 [facility] Influenza Virus 2021-06-11 Completed Universit y of Vaccine Quad .5 mL 00:00:00 [facility] 6+ MO Branch Influenza Virus 2021-06-11 Completed Universit y of Vaccine 00:00:00 [facility] Influenza Virus 2021-06-11 Completed Universit y of Vaccine Quad .5 mL 00:00:00 [facility] 6+ MO Branch Influenza Virus 2021-06-11 Completed Universit y of Vaccine 00:00:00 [facility] Influenza Virus 2021-06-11 Completed Universit y of Vaccine Quad .5 mL 00:00:00 [facility] 6+ MO Branch Influenza Virus 2020-05-19 Completed Universit y of Vaccine 00:00:00 [facility] Influenza Virus 2020-05-19 Completed Universit y of Vaccine 00:00:00 [facility] Influenza Virus 2020-05-19 Completed Universit y of Vaccine 00:00:00 [facility] Influenza Virus 2020-05-19 Completed Universit y of Vaccine 00:00:00 [facility] Influenza Virus 2020-05-19 Completed Universit y of Vaccine 00:00:00 [facility] Influenza Virus 2020-05-19 Completed Universit y of Vaccine 00:00:00 [facility] Influenza Virus 2020-05-19 Completed Universit y of Vaccine 00:00:00 [facility] Influenza Virus 2020-05-19 Completed Universit y of Vaccine 00:00:00 [facility] Influenza Virus 2020-05-19 Completed Universit y of Vaccine 00:00:00 [facility] Influenza Virus 2020-05-19 Completed Universit y of Vaccine 00:00:00 [facility] Influenza Virus 2020-05-19 Completed Universit y of Vaccine 00:00:00 [facility] Influenza Virus 2020-05-19 Completed Universit y of Vaccine 00:00:00 [facility] Influenza Virus 2020-05-19 Completed Universit y of Vaccine 00:00:00 [facility] Influenza Virus 2020-05-19 Completed Universit y of Vaccine 00:00:00 [facility] Influenza Virus 2020-05-19 Completed Universit y of Vaccine 00:00:00 [facility] Influenza Virus 2020-05-19 Completed Universit y of Vaccine 00:00:00 [facility] Influenza Virus 2020-05-19 Completed Universit y of Vaccine 00:00:00 [facility] Influenza Virus 2020-05-19 Completed Universit y of Vaccine 00:00:00 [facility] Influenza Virus 2020-05-19 Completed Universit y of Vaccine 00:00:00 [facility] Influenza Virus 2020-05-19 Completed Universit y of Vaccine 00:00:00 [facility] Influenza Virus 2020-05-19 Completed Universit y of Vaccine 00:00:00 [facility] Influenza Virus 2020-05-19 Completed Universit y of Vaccine 00:00:[address] [place] [facility] Influenza Virus 2020-05-19 Completed Universit y of Vaccine 00:00:00 [facility] Influenza Virus 2020-05-19 Completed Universit y of Vaccine 00:00:00 [facility] Influenza Virus 2020-05-19 Completed Universit y of Vaccine 00:00:[address] [place] [facility] Influenza Virus 2020-05-19 Completed Universit y of Vaccine 00:00:00 [facility] Influenza Virus 2020-05-19 Completed Universit y of Vaccine 00:00:[address] [place] [facility] Influenza Virus 2020-05-19 Completed Universit y of Vaccine 00:00:00 [place] [facility] Influenza Virus 2020-05-19 Completed Universit y of Vaccine 00:00:00 [place] [facility] Influenza Virus 2020-05-19 Completed Universit y of Vaccine 00:00:00 [place] [facility] Influenza Virus 2020-05-19 Completed Universit y of Vaccine 00:00:00 [place] [facility] Influenza Virus 2020-05-19 Completed Universit y of Vaccine 00:00:00 [facility] Influenza Virus 2020-05-19 Completed Universit y of Vaccine 00:00:00 [place] [facility] Influenza Virus 2020-05-19 Completed Universit y of Vaccine 00:00:00 [place] [facility] Influenza Virus 2020-05-19 Completed Universit y of Vaccine 00:00:00 [facility] Influenza Virus 2020-05-19 Completed Universit y of Vaccine 00:00:00 [place] [facility] Influenza Virus 2020-05-19 Completed Universit y of Vaccine 00:00:00 [facility] Influenza Virus 2020-05-19 Completed Universit y of Vaccine 00:00:00 [facility] Influenza Virus 2020-05-19 Completed Universit y of Vaccine 00:00:00 [place] [facility] Influenza Virus 2020-05-19 Completed Universit y of Vaccine 00:00:00 [facility] Branch Influenza Virus 2020-05-19 Completed Universit y of Vaccine 00:00:00 [facility] Branch Influenza Virus 2020-05-19 Completed Universit y of Vaccine 00:00:00 [facility] Branch Influenza Virus 2020-05-19 Completed Universit y of Vaccine 00:00:00 [facility] Branch Influenza Virus 2020-05-19 Completed Universit y of Vaccine 00:00:[address] [facility] Influenza Virus 2020-05-19 Completed Universit y of Vaccine 00:00:00 [facility] Branch Influenza Virus 2020-05-19 Completed Universit y of Vaccine 00:00:00 [facility] Influenza Virus 2020-05-19 Completed Universit y of Vaccine 00:00:00 [facility] Influenza Virus 2020-05-19 Completed Universit y of Vaccine 00:00:00 [facility] Influenza Virus 2020-05-19 Completed Universit y of Vaccine 00:00:00 [facility] Influenza Virus 2020-05-19 Completed Universit y of Vaccine 00:00:00 [facility] Influenza Virus 2020-05-19 Completed Universit y of Vaccine 00:00:00 [facility] Influenza Virus 2020-05-19 Completed Universit y of Vaccine 00:00:00 [facility] Influenza Virus 2020-05-19 Completed Universit y of Vaccine 00:00:00 [facility] Influenza Virus 2020-05-19 Completed Universit y of Vaccine 00:00:00 [facility] Influenza Virus 2020-05-19 Completed Universit y of Vaccine 00:00:00 [facility] Influenza Virus 2020-05-19 Completed Universit y of Vaccine 00:00:00 [facility] Influenza Virus 2020-05-19 Completed Universit y of Vaccine 00:00:00 [facility] Influenza Virus 2020-05-19 Completed Universit y of Vaccine 00:00:00 [facility] Influenza Virus 2020-05-19 Completed Universit y of Vaccine 00:00:00 [facility] Influenza Virus 2020-05-19 Completed Universit y of Vaccine 00:00:00 [facility] Influenza Virus 2020-05-16 Completed Universit y of [...] Universit y of Vaccine Recomb Quad 00:00:00 [facility], Preserv and ABX Branc h Free 18-64 YRS TDAP (ADACEL) 2019-05-21 Completed University of VACCINE 00:00:00 [facility] TDAP (ADACEL) 2019-05-21 Completed University of VACCINE 00:00:00 [facility] TDAP (ADACEL) 2019-05-21 Completed University of VACCINE 00:00:00 [facility] TDAP (ADACEL) 2019-05-21 Completed University of VACCINE 00:00:00 [facility] TDAP (ADACEL) 2019-05-21 Completed University of VACCINE 00:00:00 [facility] TDAP (ADACEL) 2019-05-21 Completed University of VACCINE 00:00:00 [facility] TDAP (ADACEL) 2019-05-21 Completed University of VACCINE 00:00:00 [facility] Branch TDAP (ADACEL) 2019-05-21 Completed University of VACCINE 00:00:00 [facility] Branch TDAP (ADACEL) 2019-05-21 Completed University of VACCINE 00:00:00 [facility] TDAP (ADACEL) 2019-05-21 Completed University of VACCINE 00:00:00 [facility] TDAP (ADACEL) 2019-05-21 Completed University of VACCINE 00:00:00 [facility] TDAP (ADACEL) 2019-05-21 Completed University of VACCINE 00:00:00 [facility] Branch TDAP (ADACEL) 2019-05-21 Completed University of VACCINE 00:00:00 [facility] TDAP (ADACEL) 2019-05-21 Completed University of VACCINE 00:00:00 [facility] TDAP (ADACEL) 2019-05-21 Completed University of VACCINE 00:00:00 [facility] TDAP (ADACEL) 2019-05-21 Completed University of VACCINE 00:00:00 [facility] TDAP (ADACEL) 2019-05-21 Completed University of VACCINE 00:00:00 [facility] TDAP (ADACEL) 2019-05-21 Completed University of VACCINE 00:00:00 [facility] TDAP (ADACEL) 2019-05-21 Completed University of VACCINE 00:00:00 [facility] TDAP (ADACEL) 2019-05-21 Completed University of VACCINE 00:00:00 [facility] TDAP (ADACEL) 2019-05-21 Completed University of VACCINE 00:00:00 [facility] TDAP (ADACEL) 2019-05-21 Completed University of VACCINE 00:00:00 [facility] TDAP (ADACEL) 2019-05-21 Completed University of VACCINE 00:00:00 [facility] TDAP (ADACEL) 2019-05-21 Completed University of VACCINE 00:00:00 [facility] TDAP (ADACEL) 2019-05-21 Completed University of VACCINE 00:00:00 [facility] TDAP (ADACEL) 2019-05-21 Completed University of VACCINE 00:00:00 [facility] TDAP (ADACEL) 2019-05-21 Completed University of VACCINE 00:00:00 [facility] Branch TDAP (ADACEL) 2019-05-21 Completed University of VACCINE 00:00:00 [facility] Branch TDAP (ADACEL) 2019-05-21 Completed University of VACCINE 00:00:00 [facility] Branch TDAP (ADACEL) 2019-05-21 Completed University of VACCINE 00:00:00 [facility] Branch TDAP (ADACEL) 2019-05-21 Completed University of VACCINE 00:00:00 [facility] Branch TDAP (ADACEL) 2019-05-21 Completed University of VACCINE 00:00:00 [facility] Branch TDAP (ADACEL) 2019-05-21 Completed University of VACCINE 00:00:00 [facility] TDAP (ADACEL) 2019-05-21 Completed University of VACCINE 00:00:00 [facility] Branch TDAP (ADACEL) 2019-05-21 Completed University of VACCINE 00:00:00 [facility] Branch TDAP (ADACEL) 2019-05-21 Completed University of VACCINE 00:00:00 [facility] TDAP (ADACEL) 2019-05-21 Completed University of VACCINE 00:00:00 [facility] TDAP (ADACEL) 2019-05-21 Completed University of VACCINE 00:00:00 [facility] TDAP (ADACEL) 2019-05-21 Completed University of VACCINE 00:00:00 [facility] TDAP (ADACEL) 2019-05-21 Completed University of VACCINE 00:00:00 [facility] TDAP (ADACEL) 2019-05-21 Completed University of VACCINE 00:00:00 [facility] TDAP (ADACEL) 2019-05-21 Completed University of VACCINE 00:00:00 [facility] TDAP (ADACEL) 2019-05-21 Completed University of VACCINE 00:00:00 [facility] Branch TDAP (ADACEL) 2019-05-21 Completed University of VACCINE 00:00:00 [facility] Branch TDAP (ADACEL) 2019-05-21 Completed University of VACCINE 00:00:00 [facility] Branch TDAP (ADACEL) 2019-05-21 Completed University of VACCINE 00:00:00 [facility] Branch TDAP (ADACEL) 2019-05-21 Completed University of VACCINE 00:00:00 [facility] Branch TDAP (ADACEL) 2019-05-21 Completed University of VACCINE 00:00:00 [facility] TDAP (ADACEL) 2019-05-21 Completed University of VACCINE 00:00:00 [facility] TDAP (ADACEL) 2019-05-21 Completed University of VACCINE 00:00:00 [facility] TDAP (ADACEL) 2019-05-21 Completed University of VACCINE 00:00:00 [facility] TDAP (ADACEL) 2019-05-21 Completed University of VACCINE 00:00:00 [facility] TDAP (ADACEL) 2019-05-21 Completed University of VACCINE 00:00:00 [facility] TDAP (ADACEL) 2019-05-21 Completed University of VACCINE 00:00:00 [facility] TDAP (ADACEL) 2019-05-21 Completed University of VACCINE 00:00:00 [facility] TDAP (ADACEL) 2019-05-21 Completed University of VACCINE 00:00:00 [facility] TDAP (ADACEL) 2019-05-21 Completed University of VACCINE 00:00:00 [facility] TDAP (ADACEL) 2019-05-21 Completed University of VACCINE 00:00:00 [facility] TDAP (ADACEL) 2019-05-21 Completed University of VACCINE 00:00:00 [facility] TDAP (ADACEL) 2019-05-21 Completed University of VACCINE 00:00:00 [facility] Influenza Virus 2019-02-06 Completed Universit y of Vaccine Quad .5 mL 00:00:00 [facility] 6+ MO Branch Influenza Virus 2019-02-06 Completed Universit y of Vaccine Quad .5 mL 00:00:00 [facility] IM 6+ MO Branch Influenza [...] Vaccine Quad .5 mL 00:00:00 [facility] 6+ [place] [facility] Influenza Virus 2019-02-06 Completed Universit y of Vaccine Quad .5 mL 00:00:00 [facility] 6+ [place] [facility] Influenza Virus 2019-02-06 Completed Universit y of Vaccine Quad .5 mL 00:00:00 [facility] 6+ [place] [facility] Influenza Virus 2019-02-06 Completed Universit y of Vaccine Quad .5 mL 00:00:00 [facility] 6+ [place] [facility] Influenza Virus 2019-02-06 Completed Universit y of Vaccine Quad .5 mL 00:00:00 [facility] 6+ [place] [facility] Influenza Virus 2019-02-06 [...] Vaccine Quad .5 mL 00:00:00 [facility] 6+ MO Branch Influenza Virus 2019-02-06 Completed [...] Univer sity of pressure [facility] Diastolic blood 2022-11-21 21:40:00 90 mm[Hg] Unive rsity of pressure [facility] Heart rate 2022-11-21 21:40:00 92 /min Universi ty of [facility] [place] Respiratory rate 2022-11-21 21:40:00 16 /min [facility] Oxygen saturation in 2022-11-21 21:40:00 99 /min University of Arterial blood by [place] [employer] [facility] Pulse oximetry Branch Body temperature 2022-11-21 18:07:00 37.28 Irene [facility] Body weight 2022-11-21 18:07:00 68.04 kg [facility] BMI 2022-11-21 18:07:00 28.34 kg/m2 [facility] ty [facility] Systolic blood 2022-09-05 17:22:00 139 mm[Hg] Univer sity of pressure [facility] Branch Diastolic blood 2022-09-05 17:22:00 91 mm[Hg] Unive rsity of pressure [facility] Heart rate 2022-09-05 17:22:00 120 /min Universi ty of [facility] Respiratory rate 2022-09-05 17:22:00 18 /min Univ ersity of [facility] Oxygen saturation in 2022-09-05 17:22:00 99 /min University of Arterial blood by [facility] Pulse oximetry Branch Body temperature 2022-09-05 13:43:00 37.11 Irene Univ ersity of [facility] Body weight 2022-09-05 13:43:00 68.04 kg Universi ty of [facility] BMI 2022-09-05 13:43:00 28.34 kg/m2 Universi ty of [facility] Systolic blood 2022-08-01 00:49:00 138 mm[Hg] Univer sity of pressure [facility] Diastolic blood 2022-08-01 00:49:00 104 mm[Hg] Unive rsity of pressure [facility] Heart rate 2022-08-01 00:49:00 108 /min Universi ty of [facility] Respiratory rate 2022-08-01 00:49:00 18 /min Univ ersity of [facility] Oxygen saturation in 2022-08-01 00:49:00 99 /min University of Arterial blood by [facility] Pulse oximetry Branch Body temperature 2022-07-31 22:52:00 37.11 Irene Univ ersity of [facility] Body height 2022-07-31 22:52:00 154.9 cm Universi ty of [facility] Body weight 2022-07-31 22:52:00 68.04 kg Universi ty of [facility] BMI 2022-07-31 22:52:00 28.34 kg/m2 Universi ty [facility] Systolic blood 2022-07-15 15:32:00 130 mm[Hg] Univer sity of pressure [facility] Diastolic blood 2022-07-15 15:32:00 90 mm[Hg] Unive rsity of pressure [facility] Heart rate 2022-07-15 15:31:00 81 /min Universi ty of [facility] Body temperature 2022-07-15 15:31:00 36.94 Irene Univ ersity of [facility] Respiratory rate 2022-07-15 15:31:00 16 /min Univ ersity of [facility] Body weight 2022-07-15 15:31:00 68.493 kg Universi ty of [facility] BMI 2022-07-15 15:31:00 28.53 kg/m2 Universi ty of [facility] Oxygen saturation in 2022-07-15 15:31:00 99 /min [facility] Arterial blood by [facility] Systolic blood 2022-06-23 15:26:00 111 mm[Hg] Univer sity of pressure [facility] Diastolic blood 2022-06-23 15:26:00 75 mm[Hg] Unive rsity of pressure [facility] Heart rate 2022-06-23 15:26:00 108 /min Universi ty of [facility] Body temperature 2022-06-23 15:26:00 36.83 Irene Univ ersity of [facility] Respiratory rate 2022-06-23 15:26:00 18 /min Univ ersity of [facility] Body height 2022-06-23 15:26:00 154.9 cm Universi ty of [facility] Body weight 2022-06-23 15:26:00 71.385 kg Universi ty of [facility] BMI 2022-06-23 15:26:00 29.74 kg/m2 Universi ty of [facility] Oxygen saturation in 2022-06-23 15:26:00 99 /min University of Arterial blood by [facility] Pulse oximetry Branch Systolic blood 2022-05-05 22:05:00 126 mm[Hg] Univer sity of pressure [facility] Diastolic blood 2022-05-05 22:05:00 75 mm[Hg] Unive rsity of pressure [facility] Heart rate 2022-05-05 22:05:00 99 /min Universi ty of [facility] Respiratory rate 2022-05-05 22:05:00 16 /min Univ ersity of [facility] Oxygen saturation in 2022-05-05 22:05:00 99 /min University of Arterial blood by [facility] Pulse oximetry Branch Body temperature 2022-05-05 18:24:00 37.11 Irene Univ ersity of [facility] Body height 2022-05-05 18:24:00 154.9 cm Universi ty of [facility] Body weight 2022-05-05 18:24:00 54.432 kg Universi ty of [facility] BMI 2022-05-05 18:24:00 22.67 kg/m2 [facility]i ty of [facility] Systolic blood 2022-04-26 14:28:00 135 mm[Hg] Univer sity of pressure [facility] Diastolic blood 2022-04-26 14:28:00 95 mm[Hg] Unive rsity of pressure [facility] Heart rate 2022-04-26 14:28:00 93 /min Universi ty of [facility] Body temperature 2022-04-26 14:28:00 36.89 Irene Univ ersity of [facility] Respiratory rate 2022-04-26 14:28:00 18 /min Univ ersity of [facility] Body height 2022-04-26 14:28:00 154.9 cm Universi ty of [facility] Body weight 2022-04-26 14:28:00 54.432 kg Universi ty of [facility] BMI 2022-04-26 14:28:00 22.67 kg/m2 Universi ty of [facility] Oxygen saturation in 2022-04-26 14:28:00 100 /min University of Arterial blood by [place] [employer] [facility] Pulse oximetry Branch Systolic blood 2022-04-26 00:21:00 151 mm[Hg] Univer sity of pressure [facility] Diastolic blood 2022-04-26 00:21:00 98 mm[Hg] Unive rsity of pressure [facility] Heart rate 2022-04-26 00:21:00 98 /min Universi ty of [facility] Body temperature 2022-04-26 00:21:00 36.72 Irene Univ ersity of [facility] Respiratory rate 2022-04-26 00:21:00 18 /min Univ ersity of [facility] Body height 2022-04-26 00:21:00 154.9 cm Universi ty of [facility] Body weight 2022-04-26 00:21:00 54.432 kg Universi ty of [facility] BMI 2022-04-26 00:21:00 22.67 kg/m2 Universi ty of [facility] Oxygen saturation in 2022-04-26 00:21:00 100 /min [facility] Arterial blood by [facility] P[facility]xim[facility] Systolic blood 2022-04-09 14:39:00 122 mm[Hg] Univer sity of pressure [facility] Diastolic blood 2022-04-09 14:39:00 84 mm[Hg] Unive rsity of pressure [facility] Heart rate 2022-04-09 14:39:00 96 /min Universi ty of [facility] Body height 2022-04-09 14:39:00 154.9 cm Universi ty of [facility] Body weight 2022-04-09 14:39:00 60.328 kg Universi ty of [facility] BMI 2022-04-09 14:39:00 25.13 kg/m2 Universi ty of [facility] Oxygen saturation in 2022-04-09 14:39:00 98 /min University of Arterial blood by [facility] Pulse oximetry Branch Systolic blood 2022-04-07 22:43:36 [...] 97 /min University of Arterial blood by [facility] Pulse oximetry Branch Body temperature 2022-04-07 19:41:00 37.17 Irene Univ ersity of [facility] Body height 2022-04-07 19:41:00 154.9 cm Universi ty of [facility] Body weight 2022-04-07 19:41:00 60.328 kg Universi ty of [facility] BMI 2022-04-07 19:41:00 25.13 kg/m2 Universi ty of [facility] Systolic blood 2022-03-24 19:00:00 125 mm[Hg] Univer sity of pressure [facility] Diastolic blood 2022-03-24 19:00:00 86 mm[Hg] Unive rsity of pressure [facility] Heart rate 2022-03-24 19:00:00 93 /min Universi ty of [facility] Respiratory rate 2022-03-24 19:00:00 17 /min Univ ersity of [facility] Oxygen saturation in 2022-03-24 19:00:00 97 /min University of Arterial blood by [facility] Pulse oximetry Branch Body temperature 2022-03-24 13:33:00 36.78 Irene Univ ersity of [facility] Systolic blood 2022-03-15 19:23:00 128 mm[Hg] Univer sity of pressure [facility] Diastolic blood 2022-03-15 19:23:00 89 mm[Hg] Unive rsity of pressure [facility] Heart rate 2022-03-15 19:23:00 104 /min Universi ty of [facility] Body weight 2022-03-15 19:23:00 60.328 kg Universi ty of [facility] BMI 2022-03-15 19:23:00 25.13 kg/m2 Universi ty of [facility] Oxygen saturation in 2022-03-15 19:23:00 98 /min University of Arterial blood by [place] [employer] [facility] Pulse oximetry Branch Systolic blood 2022-03-15 15:02:00 115 mm[Hg] Univer sity of pressure [facility] Diastolic blood 2022-03-15 15:02:00 70 mm[Hg] Unive rsity of pressure [facility] Heart rate 2022-03-15 15:02:00 85 /min Universi ty of [facility] Respiratory rate 2022-03-15 15:02:00 20 /min Univ ersity of [facility] Oxygen saturation in 2022-03-15 15:02:00 99 /min University of Arterial blood by [place] [employer] [facility] Pulse oximetry Branch Body temperature 2022-03-15 13:38:00 36.94 Irene Univ ersity of [facility] Body height 2022-03-15 13:38:00 154.9 cm Universi ty of [facility] Body weight 2022-03-15 13:38:00 54.432 [...] 100 /min University of Arterial blood by [place] [employer] [facility] Pulse oximetry Branch Body height 2022-03-11 [...] 100 /min [facility] of Arterial blood by [place] [facility] Pulse oxim[facility] Branch Systolic blood [...] by [place] [facility] Pulse oxim[facility] Branch Systolic blood [...] 97 /min University of Arterial blood by [facility] Pulse oximetry Branch Body temperature 2022-02-21 06:16:00 36.94 Irene Univ ersity [facility] Body height 2022-02-21 06:16:00 154.9 cm Universi ty [facility] Body weight 2022-02-21 06:16:00 60.963 [...] 98 /min University of Arterial blood by [facility] Pulse oximetry Branch Body temperature 2022 [...] 98 /min University of Arterial blood by [facility] Pulse oximetry Branch Systolic blood 2022-01-18 14:50:00 [...] 99 /min University of Arterial blood by [facility] Pulse oximetry Branch Body weight 2022-01-18 [...] 98 /min University of Arterial blood by [facility] Pulse oximetry Branch Body temperature 2022-01-15 13:32:00 37.11 Irene Univ ersity [facility] Body height 2022-01-15 13:32:00 154.9 cm Universi ty of [facility] Body weight 2022-01-15 13:32:00 54.432 kg [facility]i ty [facility] [place] BMI 2022-01-15 13:32:00 22.67 kg/m2 Universi ty of [facility] Systolic blood 2022-01-09 00:37:11 127 mm[Hg] Univer sity of pressure [facility] Diastolic blood 2022-01-09 00:37:11 90 mm[Hg] Unive rsity of [facility] Heart rate 2022-01-09 00:37:11 94 /min Universi ty of [facility] Body temperature 2022-01-09 00:37:11 37.11 Irene Univ ersity of [facility] Respiratory rate 2022-01-09 00:37:11 16 /min [facility] Oxygen saturation in 2022-01-09 00:37:11 97 /min [facility] Arterial blood by [facility] Pulse oximetry Branch Body height 2022-01-08 23:03:00 154.9 cm Universi ty of [facility] Body weight 2022-01-08 23:03:00 58.06 kg Universi ty of [facility] BMI 2022-01-08 23:03:00 24.19 kg/m2 Universi ty of [facility] Systolic blood 2021-12-12 18:00:00 126 mm[Hg] Univer sity of [facility] Diastolic blood 2021-12-12 18:00:00 87 mm[Hg] Unive rsity of [facility] Heart rate 2021-12-12 18:00:00 86 /min Universi ty of [facility] Body temperature 2021-12-12 18:00:00 36.89 Irene Univ ersity of [facility] Respiratory rate 2021-12-12 18:00:00 18 /min Univ ersity of [facility] Body height 2021-12-12 18:00:00 154.9 cm Universi ty of [facility] Body weight 2021-12-12 18:00:00 57.153 kg Universi ty of [facility] BMI 2021-12-12 18:00:00 23.81 kg/m2 Universi ty of [facility] Procedures Procedure Date / Time Performing Clinician Source Performed ASSIGNMENT OF BENEFITS 2022-11-21 19:49:02 Doctor Unassigned, No [facility] CONSENT/REFUSAL FOR 2022-11-21 18:03:25 Doctor Unassigned, No [facility] [place] [facility] CONSENT/REFUSAL FOR 2022-09-05 13:42:02 Doctor Unassigned, No [facility] [place] [facility] Name [facility] LIPASE 2022-07-31 23:13:00 Manju Newell [facility] TEST, SERUM 2022-07-31 23:13:[address] [address] [facility] MET[facility]OLIC PANEL 2022-07-31 23:13:00 Manju Newell Un iversity [facility] ([id number]) [facility] CBC WITH DIFF 2022-07-31 23:13[facility]00 [facility] CONSENT/REFUSAL FOR 2022-07-31 22:49:17 [facility] XR ANKLE 3+ VW RIGHT 2022-07-15 16:00:00 Cari Kaur [facility] XR FOOT 3+ VW RIGHT 2022-07-15 16:00:00 NatashaCari draper [facility] XR FOOT 3+ VW RIGHT 2022-07-15 16:00:00 Cari Kaur [facility] PATIENT FINANCIAL 2022-07-15 15:25:53 Doctor Unassigned, No [facility] POLICY [facility] POCT MOLECULAR STREP 2022-06-23 16:06:00 Unknown, Attending [facility] ASSIGNMENT OF BENEFITS 2022-06-23 15:18:28 Doctor Unassigned, No [facility] COMP. METABOLIC PANEL 2022-05-05 19:14:00 Karon [facility] ([id number]) [facility] CBC WITH DIFF 2022-05-05 19:14:00 Karon Norton [facility] POCT TEST 2022-05-05 19:00:00 Karon Norton [facility] URINALYSIS 2022-05-05 18:58:00 Karon Norton [facility] CT ABDOMEN PELVIS WO 2022-04-26 15:11:00 [facility] Center CONTRAST [facility] COMP. METABOLIC PANEL 2022-04-26 14:49:00 Zion Bridges [facility] ([id number]) Medical [place] CBC WITH DIFF 2022-04-26 14:49:00 Singer [facility] URINALYSIS 2022-04-26 14:49:00 Singer [facility] POCT TEST 2022-04-26 14:45:00 Zion Bridges [facility] CONSENT/REFUSAL FOR 2022-04-26 14:22:29 Doctor Unassigned, No [facility] [place] [facility] POCT TEST 2022-04-26 01:22:00 Zion Bridges [facility] ASSIGNMENT OF BENEFITS 2022-04-26 00:54:02 Doctor Unassigned, No [facility] URINALYSIS 2022-04-26 00:45:00 Singer [facility] CONSENT/REFUSAL FOR 2022-04-26 00:16:47 Doctor Unassigned, No [facility] [place] [facility] TREAT[facility] BASIC METABOLIC PANEL 2022-04-07 22:35:00 Olamide Garvin [facility] (NA, K, CL, CO2, Medical Branch GLUCOSE, BUN, CREATININE, CA) CBC WITH DIFF 2022-04-07 22:35:00 Olamide Garvin [facility] URINALYSIS 2022-04-07 21:36:00 Olamide Garvin [facility] URINE DRUG (IMMUNOASSAY) 2022-04-07 21:36:00 Olamide Garvin [facility] [place] - COMPREHENSIVE DRUG Medical Bra nch SCREEN W/O REFLEX CONSENT/REFUSAL FOR 2022-04-07 19:29:15 Doctor Unassigned, No [facility] [place] [facility] POCT TEST 2022-03-24 14:07:00 Kellie Duncan [facility] CONSENT/REFUSAL FOR 2022-03-24 13:27:20 Doctor Unassigned, No [facility] [place] [facility]REAT[facility] Name Medical Branch CT ABDOMEN PELVIS WO 2022-03-15 14:09:04 Anna Gould [facility] URINALYSIS 2022-03-15 13:53:00 Anna Gould [facility] POCT TEST 2022-03-15 13:52:00 Anna Gould [facility] CONSENT/REFUSAL FOR 2022-03-15 13:37:02 Doctor Unassigned, No [facility] [place] DIAGNOSIS AND TREATMENT Name [facility] Branch POCT TEST 2022-03-11 14:59:00 Angelica Viveros [facility] ty [facility] FLU VACC (), 6 2022-02-27 13:34:55 Vijay Martinez [facility] [place]-64 YRS, .5ML, IM, Medical Bra [facility] QUAD (FLUCELVAX) NOTICE OF PRIVACY 2022-02-21 06:06:30 Doctor Unassigned, No [facility] PRACTICES Name [facility] CONSENT/REFUSAL FOR 2022-02-21 06:03:41 Doctor Unassigned, No [facility] [place] [facility] Name [facility] XR ANKLE <3 VW RIGHT 2022 17:56:42 Maggie Hamilton [facility] CT ABDOMEN PELVIS W 2022 17:44:17 Maggie Hamilton [facility] CT TRAUMA CERVICAL SPINE 2022 17:43:49 Maggie Hamilton [facility] WO CONTRAST [facility] POCT TEST 2022 17:27:00 Maggie Hamilton [facility] COMP. METABOLIC PANEL 2022 17:17:00 Maggie Hamilton [facility] ([id number]) [facility] CBC WITH DIFF 2022 17:17:00 Maggie Hamilton [facility] CONSENT/REFUSAL FOR 2022 16:53:13 Doctor Unassigned, No [facility] [place] [facility] Name [facility] US GALL BLADDER 2022-01-18 12:31:09 Bernardo Levy [place] [facility] US PELVIS COMPLETE WITH 2022-01-18 12:21:13 Melvin Zhao [facility] TRANSVAGINAL [facility] CT ABDOMEN PELVIS W 2022-01-18 11:20:50 Melvin Zhao [facility] CONTRAST [facility] POCT TEST 2022-01-18 10:57:00 Jayy Kennedy [facility] COVID-19 (ID NOW RAPID 2022-01-18 10:57:00 Jayy Kennedy [facility] TESTING) Medical Branch URINALYSIS 2022-01-18 10:47:00 Jayy Kennedy [facility] LIPASE 2022-01-18 10:29:00 Jayy Kennedy [facility] TEST, SERUM 2022-01-18 10:29:00 KennedyJayy [facility] HEPATIC FUNCTION PANEL 2022-01-18 10:29:00 Jayy Kennedy [facility] ([id number]) (ALB,T.PRO,BILI Medical Branch T,BU/BC,ALT,AST,ALK PHOS) BASIC METABOLIC PANEL 2022-01-18 10:29:00 Jayy Kennedy [facility] (NA, K, CL, CO2, Medical Branch GLUCOSE, BUN, CREATININE, CA) CBC WITH DIFF 2022-01-18 10:29:00 Jayy Kennedy [facility] CONSENT/REFUSAL FOR 2022-01-18 10:13:31 Doctor Unassigned, No [facility] [place] [facility] Name [facility] CT HEAD WO CONTRAST 2022-01-15 15:22:29 Danita [facility] TEST, SERUM 2022-01-15 14:36:00 Danita [facility] BASIC METABOLIC PANEL 2022-01-15 14:36:00 Danita [facility] (NA, K, CL, CO2, Medical Branch GLUCOSE, BUN, CREATININE, CA) CBC WITH DIFF 2022-01-15 14:36:00 Danita [facility] CONSENT/REFUSAL FOR 2022-01-15 13:28:12 Doctor Unassigned, No [facility] Name Medical Branch XR CERVICAL SPINE 4 VW 2022-01-09 00:29:16 Humberto Ochoa [facility] XR LUMBAR SPINE 4 VW 2022-01-09 00:29:16 Humberto [facility]cho[facility] SP[facility] THORACIC 3 VW 2022-01-09 00:29:16 Humberto Ochoa [facility] URINALYSIS 2022-01-08 23:50:00 Humberto Ochoa [facility] CONSENT/REFUSAL FOR 2022-01-08 22:51:08 Doctor Unassigned, No Un [facility] DIAGNOSIS AND TREATMENT Name Medical Branch GALV ONLY - VAGINAL 2021-12-12 18:37:00 Prasanna Vargas [facility] PATHOGENS BY [facility] ACID TESTING URINE CULTURE 2021-12-12 18:32:00 Prasanna Vargas [place] [facility] POCT TEST 2021-12-12 18:31:00 Prasanna Vargas [facility] POCT URINALYSIS W/O 2021-12-12 18:31:00 Prasanna Vargas [facility] SPECIFIC GRAVITY [facility] Encounters Start End Encounter Admission Attending Care Care Encounter Source Date/Time Date/Time Type Type Clinicians Facility Department ID 2021-03-14 Emergency [facility] [id number] Univers 03:14:31 ity of [facility] 2021-03-13 Emergency [facility] [id number] Univers 20:05:20 ity of [facility] 2021-03-13 Emergency [facility] [id number] Univers 12:48:28 ity of [facility] 2021-03-13 Emergency [facility] [id number] Univers 02:43:51 ity of [facility] 2021-03-13 Emergency [facility] [id number] Univers 00:27:09 ity of [facility] 2021-03-12 Emergency [facility] [id number] Univers 22:10:36 ity of [facility] 2021-03-12 Emergency [facility] [id number] Univers 20:04:05 ity of [facility] 2021-03-12 Emergency [facility] [id number] Univers 15:25:05 ity of [facility] 2021-03-12 Emergency [facility] [id number] Univers 11:43:36 ity of [facility] 2021-03-12 Emergency [facility] [id number] Univers 07:41:37 ity of [facility] 2021-03-12 Emergency [facility] [id number] Univers 05:43:47 ity of [facility] 2021-03-12 Emergency [facility] [id number] Univers 03:43:41 ity of [facility] 2021-03-12 Emergency [facility] [id number] Univers 01:31:27 ity of [facility] 2021-03-12 Emergency X [facility] ERT [id number] Univers 00:56:44 ity of [facility] 2021-03-12 Emergency [facility] [id number] Univers 00:56:31 ity of [facility] 2021-03-11 Emergency [facility] [id number] Univers 17:47:02 ity of [facility] 2021-03-11 Emergency [facility] [id number] Univers 16:27:15 ity of [facility] 2021-03-11 Emergency [facility] [id number] Univers 12:00:58 ity of [facility] 2021-03-11 Emergency [facility] [id number] Univers 10:33:59 ity of [facility] 2021-03-11 Emergency [facility] [id number] Univers 01:36:52 ity of [facility] 2021-03-10 Emergency [facility] [id number] Univers 23:35:34 ity of [facility] 2021-03-10 Emergency [facility] [id number] Univers 19:06:16 ity of [facility] 2021-03-10 Emergency [facility] [id number] Univers 12:39:47 ity of [facility] 2021-03-10 Emergency [facility] [id number] Univers 06:54:04 ity of [facility] 2021-03-09 Outpatient P [facility] CHRIS [id number] Univers 13:25:44 ity of [facility] 2021-03-09 Outpatient P [facility] [id number] Univers 13:08:01 ity of [facility] 2021-03-09 Outpatient P [facility] CHRIS [id number] Univers 12:37:25 ity [facility] 2021-03-09 Outpatient P [facility] CHRIS [id number] Univers 11:51:20 ity [facility] 2022-12-14 2022-12-14 Outpatient [facility] [id number] Willis 18:37:13 18:37:13 0804 F Jeffery 2022-12-13 2022-12-13 Outpatient ERICKSON_R [facility] [id number] Chase 00:00:00 00:00:00 [facility]03 [facility] 2022-12-12 2022-12-12 Outpatient R PRASANNA VARGAS [facility] [id number] Univers 09:30:00 09:30:00 ity [facility] 2022-11-21 2022-11-21 Emergency X OSIRIS [facility] ERT [id number] Univers 13:08:00 16:45:00 MANJU maradiaga [facility] 2022-11-21 2022-11-21 Emergency Zion Bridges [facility] 1.2.840. 114 [id number] Univers 13:08:00 16:45:00 Manju Newell 350.1.13. 10 [facility] 4.2.7.2.686 [facility] [id number] [place] [address] Branch 2022-11-18 2022-11-18 Outpatient [facility] [id number] Willis 10:08:00 10:08:00 0709 F Jeffery 2022-11-15 2022-11-15 Outpatient R JEREMY [facility]ENE [facility] [id number] Univers 09:40:00 09:40:[address] [facility] 2022-11-09 2022-11-09 Outpatient [facility] [id number] Willis 15:26:18 15:26:18 0630 F Jeffery 2022-11-06 2022-11-06 Outpatient R JUAN [facility] [id number] Univers 13:00:00 13:00:00 VIJAY chino [facility] 2022-10-29 2022-10-29 Patient Jc [facility] 1..840.114 [id number] Univers 00:00:00 00:00:00 Secure Msg [facility] 350.1.13.10 ity of [place] 4.2.7.2.686 Martin as TOÑO?BLEA [id number] Ma dical MIKI 044 [facility] OFFICE [facility] 2022-10-29 2022-10-29 Patient Prasanna Vargas [facility] 1..063.940 [id number] Univers 00:00:00 00:00:00 Secure Msg Cam [facility] 350.1.13.10 ity of [facility] 4.2.7.2.686 [place] [id number] Ma dical NAL 134 [facility] 2022-10-03 2022-10-03 Letter Gurjit Lim [facility] ..840.114 [id number] Univers 00:00:00 00:00:00 ([facility]) HEALTH 350.1.13.10 it y of [facility] 4.2.7.2.686 [place] as TOOÑ?BLEA [id number] Ma dicaliyah [place] 092 [facility] OFFICE [facility] 2022-10-02 2022-10-02 Outpatient R SHARMIN [facility] [id number] Univers 10:00:00 10:00:00 , CELINA magana [facility] 2022-10-01 2022-10-01 Outpatient R ARJUN [facility] [id number] Univers 09:40:00 09:40:00 REJI lechuga o f [facility] 2022-09-25 2022-09-25 Telephone Ponce [facility] [id number] Univers 00:00:00 00:00:00 Rad [facility] 350.1.13.10 ity of [facility] 4.2.7.2.686 [place] [id number] Ma dicme NAL 059 [facility] 2022-09-21 2022-09-21 Outpatient R LEXY [facility] [id number] Univers 09:30:00 09:30:00 KASSANDRA lechuga [facility] 2022-09-21 2022-09-21 [facility] 05.14.840.114 [id number] Univers 00:00:00 00:00:00 (Out) Kassandra HEALTH 350.1.13.10 it y of [place] 4.2.7.2.686 [place] as TOÑO?BLEA [id number] [address] OFFICE [facility] 2022-09-21 2022-09-21 Telephone [facility] 1.2.274.120 [id number] Univers 00:00:00 00:00:00 Kassandra HEALTH 350.1.13.10 it y of [place] 4.2.7.2.686 Martin as TOÑO?BLEA [id number] [address] 2022-09-21 2022-09-21 Telephone [facility] 1.2.075.437 [id number] Univers 00:00:00 00:00:00 Kassandra HEALTH 350.1.13.10 it y of [place] 4.2.7.2.686 [place] as TOÑO?BLEA [id number] [address] 2022-09-14 2022-09-14 [facility] [id number] Univers 09:30:00 09:30:00 KASSANDRA chino [facility] 2022-09-12 2022-09-12 [facility] 1..330.971 [id number] Univers 00:00:00 00:00:00 KassandraPoll Everywhere 350.1.13.10 it y of [place] 4.2.7.2.686 Martin as TOÑO?BLEA [id number] [address] OFFICE [facility] 2022-09-07 2022-09-07 [facility] [id number] Univers 11:30:00 11:30:[address] [facility] 2022-09-05 2022-09-05 Emergency X [facility] [id number] Univers 08:44:00 13:15:00 CYNISE chino [facility] 2022-09-05 2022-09-[address] [facility] 1..674.068 [id number] Univers 08:44:00 13:15:00 Cynvanesa LAWSON 350.1.13.10 i ty of [place] 4.2.7.2.686 [facility] [id number] [address] 2022-09-04 2022-09-04 Telephone Lexy, [facility] 1.2.893.297 [id number] Univers 00:00:00 00:00:00 Kassandra HEALTH 350.1.13.10 it y of [place] 4.2.7.2.686 Martin as TOÑO?BLEA [id number] [address] OFFICE [facility] 2022-09-04 2022-09-04 Patient Serra, [facility] 1.2.840.114 [id number] Univers 00:00:00 00:00:00 Secure Msg Rad KayceePilarPauloPilar LULU 350.1.13.10 ity of [place] 4.2.7.2.686 [facility] PROFESSIO [id number] Ma dical NAL 059 [facility] 2022-08-29 2022-08-29 Outpatient R SHARMIN [facility] [id number] Univers 09:00:00 09:00:00 , CELINA it y of [facility] 2022-08-14 2022-08-14 Patient Doctor [facility] 1.2.840.114 [id number] Univers 00:00:00 00:00:00 Secure Msg Unassigned, HEALTH 350.1.13.10 ity of [place] 4.2.7.2.686 [place] as TOÑO?BLEA [id number] Ma dic[address] OFFICE [facility] 2022-07-31 2022-07-31 Emergency X RIDDLE, [facility] ERT [id number] Univers 17:56:00 20:30:00 CHRISTCLARENCEER it y of [facility] 2022-07-31 2022-07-31 Emergency [place], [facility] 1.2.616.667 [id number] Univers 17:56:00 20:30:00 Manju LAWSON 350.1.13.10 ity of [facility] 4.2.7.2.686 [facility] [id number] [address] 2022-07-15 2022-07-15 Outpatient [facility] [id number] Univers 09:46:45 23:59:00 CARI lechuga o f [facility] 2022-07-15 2022-07-15 [facility] 1.2.840.114 [id number] Univers 09:46:45 23:59:00 Encounter [facility] 350.1.13.10 ity of [facility] 4.2.7.2.686 [place] as TOÑO?BLEA [id number] [facility] [address] [place] MEDICAL OFFICE [facility] 2022-07-15 2022-07-15 [facility] 1.2.840.114 [id number] Univers 09:46:45 23:59:00 Encounter Cari [facility] 350.1.13.10 ity of [facility] 4.2.7.2.686 [place] as TOÑO?BLEA [id number] [facility] [address] [place] MEDICAL OFFICE [facility] 2022-07-15 2022-07-15 Urgent Cari Kaur [facility] 1.2.840 .114 [id number] Univers 09:20:00 10:29:17 Care Unknown, Attending HEALTH 350.1.13.10 ity of [facility] 4.2.7.2.686 [place] as TOÑO?BLEA [id number] [facility] [address] [place] MEDICAL OFFICE [facility] 2022-07-15 2022-07-15 Orders Doctor JORDAN 1.2.840.114 [id number] Univers 00:00:00 00:00:00 Only Unassigned, YAZMIN 350.1.13.10 ity of [place] [facility] 4.2.7.2.686 Martin as [id number] [facility] [address] 2022-06-23 2022-06-23 Outpatient R DANITA [facility] [id number] Univers 09:20:00 10:27:39 ROBERAYEMI ity of [facility] 2022-06-23 2022-06-23 Urgent RoberjaydaPaul shahid [facility] 1.2.840. 114 [id number] Univers 09:20:00 10:27:39 Care Unknown, Attending HEALTH 350.1.13.10 ity of [place] 4.2.7.2.686 Martin as TOÑO?BLEA [id number] Ma whit MARY [address] [place] [address] MEDICAL OFFICE BUILDING 2022-06-23 2022-06-23 Orders Doctor JORDAN 1.2.840.114 [id number] Univers 00:00:00 00:00:00 Only Unassigned, YAZMIN 350.1.13.10 ity of [place] [facility] 4.2.7.2.686 Martin as [id number] [facility] [address] [place] 2022-06-15 2022-06-15 Outpatient R JC [facility] [id number] Univers 09:40:00 09:40:[address] [facility] 2022-05-29 2022-05-29 Outpatient Farzana [facility] [id number] Univers 08:00:00 08:00[facility] 2022-05-15 2022-05-15 Outpatient Farzana [facility] [id number] Univers 09:20:00 09:20:[address] [facility] 2022-05-11 2022-05-11 Outpatient Farzana [facility] [id number] Univers 09:30:00 09:30:[address] [facility] 2022-05-05 2022-05-05 Emergency X ERROL, [facility] ERT [id number] Univers 12:26:00 16:11:[address] [facility] 2022-05-05 2022-05-05 Emergency [facility] 1.2.840.114 [id number] Univers 12:26:00 16:11:00 Karon LAWSON 350.1.13.10 i ty of [facility] 4.2.7.2.686 [place] [id number] [facility] [address] [place] 2022-05-01 2022-05-01 Outpatient PRASANNA [facility] [id number] Univers 00:00:00 00:00:00 ity [facility] 2022-04-26 2022-04-26 Emergency X SINGER [facility] ERT [id number] Univers 08:30:00 09:59:00 ZION lechuga [facility] 2022-04-26 2022-04-26 Emergency [facility] 1.2.834.157 [id number] Univers 08:30:00 09:59:00 Zion LAWSON 350.1.13.10 i ty of [place] 4.2.7.2.686 [facility] [id number] [address] 2022-04-25 2022-04-25 Emergency X [facility] ERT [id number] Univers 18:23:00 21:55:00 CYNVANESA lechuga [facility] 2022-04-25 2022-04-[address] [facility] 1.2.504.641 [id number] Univers 18:23:00 21:55:00 Kennedy LAWSON 350.1.13.10 i ty of [place] [address].2.7.2.686 [facility] [id number] [address] 2022-04-19 2022-04-19 Outpatient [facility] [id number] Univers 10:00:00 10:00:00 JEREMY ity [facility] 2022-04-12 2022-04-12 Telephone [facility] 1.2.971.808 [id number] Univers 00:00:00 00:00:00 OuiCar 350.1.13.10 it y of [place] 4.2.7.2.686 Martin as TOÑO?BLEA [id number] [address] OFFICE [facility] 2022-04-11 2022-04-11 Telephone [facility] 1.2.840.114 [id number] Univers 00:00:00 00:00:00 [facility] Medical [facility] 350.1.13.10 ity of [place] 4.2.7.2.686 Martin as TOÑO?BLEA [id number] [address] OFFICE [facility] 2022-04-10 2022-04-10 Telephone [facility] 1.2.562.307 [id number] Univers 00:00:00 00:00:00 OuiCar 350.1.13.10 it y of [place] 4.2.7.2.686 Martin as TOÑO?BLEA [id number] [address] OFFICE [facility] 2022-04-09 2022-04-09 Office [facility] 1.2.840.114 [id number] Univers 09:30:00 09:30:00 Visit OuiCar 350.1.13.10 it y of [facility] 4.2.7.2.686 Martin as TOÑO?BLEA [id number] [address] OFFICE [facility] 2022-04-09 2022-04-09 Outpatient R LEXY [facility] [id number] Univers 09:30:00 09:21:[address] [facility] 2022-04-07 2022-04-07 Emergency X [facility] ERT [id number] Univers 13:41:00 17:49:00 OLAMIDE ankush [facility] 2022-04-07 2022-04-07 Emergency [facility] 1.2.084.299 [id number] Univers 13:41:00 17:49:00 Olamide Mosqueda [place] 350.1.13.10 ity of [place] 4.2.7.2.686 [place] [facility] [id number] [address] 2022-04-04 2022-04-04 Telephone [facility] 1.2.268.750 [id number] Univers 00:00:00 00:00:00 OuiCar 350.1.13.10 it y of [place] 4.2.7.2.686 [place] as TOÑO?BLEA [id number] [address] OFFICE [facility] 2022-04-02 2022-04-02 Outpatient R [facility] [id number] Univers 10:30:00 10:30:[address] [facility] 2022-03-28 2022-03-28 Patient Doctor [facility] 1.2.840.114 [id number] Univers 00:00:00 00:00:00 Secure Msg Unassigned, [facility] 350.1.13.10 ity of [place] 4.2.7.2.686 Martin as TOÑO?BLEA [id number] [address] 2022-03-24 2022-03-24 Emergency X PERLA, [facility] ERT [id number] Univers 07:35:00 13:11:00 KELLIE itchino [facility] 2022-03-24 2022-03-24 Emergency Perla, [facility] 1.2.121.738 [id number] Univers 07:35:00 13:11:00 Kellie LAWSON 350.1.13.10 ity of [place] 4.2.7.2.686 [place] [facility] [id number] [address] 2022-03-23 2022-03-23 Outpatient [facility] [id number] Univers 10:30:00 10:30:00 KASSANDRA lechuga [facility] 2022-03-23 2022-03-23 Telephone [facility] 1.2.840.114 [id number] Univers 00:00:00 00:00:00 [facility] [id number] ity of [place] [id number] Martin as TOÑO?BLEA [phone] [address] 2022-03-22 2022-03-22 Telephone [facility] [id number] Univers 00:00:00 00:00:00 [facility] [id number] ity of [place] [id number] Martin as TOÑO?BLEA [phone] [address] 2022-03-22 2022-03-22 Refill [facility] [id number] Univers 00:00:00 00:00:00 Darrion RF Code [facility] [id number] [facility] [id number] Martin as TOÑO?BLEA [id number] [address] 2022-03-21 2022-03-21 Telephone [facility] 1.2.840.114 [id number] Univers 00:00:00 00:00:00 [facility] 350.1.13.10 ity of [facility] 4.2.7.2.686 [place] TOÑO?BLEA [phone] Ma dicaliyah [place] 092 [facility] OFFICE [facility] 2022-03-15 2022-03-15 Outpatient R [facility] [id number] Univers 14:00:00 14:36:19 REJI ity o f [facility] 2022-03-15 2022-03-15 Office [facility] 1.2.840.114 [id number] Univers 14:00:00 14:36:19 Visit Laithkarmaraheel LUL[place] 350.1.13.10 ity of [facility] 4.2.7.2.686 [place] [phone] Ma dicaliyah NAL 059 [facility] 2022-03-15 2022-03-15 Emergency X BRYANNA [facility] ERT [id number] Univers 08:40:00 10:47:00 ANNA lechuga [facility] 2022-03-15 2022-03-15 Emergency [facility] 1.2.840.114 [id number] Univers 08:40:00 10:47:00 Anna LAWSON 350.1.13.10 i ty of [place] 4.2.7.2.686 [place] [id number] [address] 2022-03-14 2022-03-14 Outpatient R PRASANNA [facility] [id number] Univers 10:30:00 10:30:00 ity of [facility] 2022-03-11 2022-03-11 Emergency X [facility] ERT [id number] Univers 09:22:00 12:15:00 SHINTA ity [facility] 2022-03-11 2022-03-11 Emergency [facility] 1.2.840.114 [id number] Univers 09:22:00 12:15:00 [facility] 350.1.13.10 i ty of [facility] 4.2.7.2.686 [place] [id number] [address] 2022-03-06 2022-03-06 Outpatient R [facility] [id number] Univers 08:30:00 08:30:00 KASSANDRA lechuga [facility] 2022-03-02 2022-03-02 Telephone Yoselin [facility] 1.2.840.114 [id number] Univers 00:00:00 00:00:00 [facility] 350.1.13.10 ity of [place] 4.2.7.2.686 [place] TOÑO?BLEA [id number] Ma whit [address] MEDICAL OFFICE [facility] 2022-02-27 2022-02-27 Outpatient R [facility] [id number] Univers 09:30:00 09:49:42 KASSANDRA lechuga [facility] 2022-02-27 2022-02-27 Office [facility] 1.2.840.114 [id number] Univers 09:30:00 09:49:42 Visit [facility] 350.1.13.10 it y of [place] 4.2.7.2.686 [place] as TOÑO?BLEA [phone] Ma alessandra[address] OFFICE [facility] 2022-02-27 2022-02-27 Office Juan [facility] 1.2.840.114 [id number] Univers 08:00:00 09:12:17 Visit [facility] 350.1.13.10 it y of [place] 4.2.7.2.686 [place] as TOÑO?BLEA [id number] Ma whit [facility] 044 [facility] OFFICE [facility] 2022-02-26 2022-02-26 Outpatient R [facility] [id number] Univers 11:30:00 11:30:00 KASSANDRAAUGUSTO lechuga [facility] 2022-02-21 2022-02-21 Emergency X ALFONSO [facility] ERT [id number] Univers 01:20:00 03:44:00 MAGGIE lechuga [facility] 2022-02-21 2022-02-21 Emergency [facility] 1.2.840.114 [id number] Univers 01:20:00 03:44:00 Maggie LAWSON 350.1.13.10 ity of [place] 4.2.7.2.686 [place] [facility] [phone] [address] 2022-02-19 2022-02-19 Patient Robb [facility] 1.2.840.114 [id number] Univers 00:00:00 00:00:00 Secure Msg Kendal Amaral [facility] 350.1.13.10 ity of [place] 4.2.7.2.686 [place] TOÑO?BLEA [phone] [address] OFFICE [facility] 2022-02-19 2022-02-19 Patient Robb [facility] 1.2.840.114 [id number] Univers 00:00:00 00:00:00 Secure Mslaila Amaral [facility] 350.1.13.10 ity of [place] 4.2.7.2.686 [place] as TOÑO?BLEA [phone] [address] 2022-02-19 2022-02-19 Patient Suzette [facility] 1.2.225.716 [id number] Univers 00:00:00 00:00:00 Secure Msg Ade SAM 350.1.13.10 ity of [facility] 4.2.7.2.686 [place] [phone] [facility] [address] 2022 2022 Emergency X [facility] ERT [id number] Univers 11:58:00 15:13:[address] [facility] 2022 2022 Emergency [facility]UN[facility] 1.2.840.114 [id number] Univers 11:58:00 15:13:00 Maggie LAWSON 350.1.13.10 ity of [place] 4.2.7.2.686 [facility] [phone] [facility] [address] 2022-02-09 2022-02-09 Outpatient R [facility] [id number] Univers 09:00:00 09:00:00 CRICKET davis [facility] 2022-02-06 2022-02-06 Outpatient R [facility] [id number] Univers 10:00:00 10:00:00 VIJAY lechuga [facility] 2022-02-05 2022-02-05 Nurse Nurse, Filippo [facility] 1.2.840.114 [id number] Univers 09:45:00 10:05:00 Visit [facility] 350.1.13.10 ity of [place] 4.2.7.2.686 [place] as TOÑO?BLEA [id number] Ma dical KNEY [address] MEDICAL OFFICE BUILDING 2022-02-05 2022-02-05 Outpatient R [facility] [id number] Univers 09:20:00 09:20:00 FLACO lechuga o f [facility] 2022-01-26 2022-01-26 Case Prasanna Vargas [facility] 1.2.373.156 [id number] Univers 00:00:00 00:00:00 Management Cam LUL[place] 350.1.13.10 ity of [facility] 4.2.7.2.686 [place] [phone] [facility] [address] BU[facility] 2022-01-22 2022-01-22 Outpatient R [facility] [id number] Univers 11:00:00 11:00:00 VIJAY lechuga [facility] 2022-01-18 2022-01-18 Emergency X [facility] ERT [id number] Univers 05:17:00 10:25:00 BERNARDO lechuga [facility] 2022-01-18 2022-01-18 Emergency Jayy Kennedy W TRAUMA 1.2.840.11 [id number] Univers 05:17:00 10:25:00 Bernardo Levy [facility] 350.1.13.10 ity of 4.2.7.2.686 [place] [id number] [facility] [address] 2022-01-15 2022-01-15 Emergency X DANITA [facility] ERT [id number] Univers 08:34:00 10:49:00 MAURA lechuga [facility] 2022-01-15 2022-01-15 Emergency Larry Perez R [facility] 1.2.840.1 14 [id number] Univers 08:34:00 10:49:00 [facility]ara [facility] 350.1.13.10 ity of [facility] 4.2.7.2.686 [place] [phone] [address] 2022-01-08 2022-01-08 Emergency X GABRIELA, [facility] ERT [id number] Univers 18:04:00 20:09:[address] [facility] 2022-01-08 2022-01-08 Emergency Gabriela, [facility] 1.2.840.114 [id number] Univers 18:04:00 20:09:00 Humberto LAWSON 350.1.13.10 i [facility] 4.2.7.2.686 [place] C[place] [id number] [address] 2021-12-12 2021-12-12 Outpatient R [facility] [id number] Univers 13:30:00 13:40:21 [facility] 2021-12-12 2021-12-12 Office Prasanna Vargas [facility] 1.2.840.114 [id number] Univers 13:30:00 13:40:21 Visit [facility].10 [facility] 4.2.7.2.686 [facility] [id number] Ma dical [address] 2021-12-12 2021-12-12 Outpatient Farzana [facility] [id number] Univers 13:30:00 13:40:21 [facility] 2021-12-12 2021-12-12 Outpatient R [facility] [id number] Univers 13:30:00 13:40:21 [facility] 2021-12-11 2021-12-11 Outpatient R [facility] [id number] Univers 16:15:00 16:15:[address] [facility] 2021-12-05 2021-12-05 Outpatient R [facility] [id number] Univers 14:15:00 14:15:[address] [facility] 2021-11-28 2021-11-28 Emergency X NORTON, [facility] ERT [id number] Univers 08:49:00 11:02:[address] [facility] 2021-11-28 2021-11-28 Emergency [facility] 1.2.840.114 [id number] Univers 08:49:00 11:02:00 Karon LAWSON 350.1.13.10 i ty of [place] 4.2.7.2.686 [facility] [phone] [address] 2021-11-24 2021-11-24 Emergency X DEV, K [facility] ERT [id number] Univers 18:14:00 21:04:00 ity of [facility] 2021-11-24 2021-11-24 Emergency Kaycee Méndez [facility] 1.2.840.114 [id number] Univers 18:14:00 21:04:00 Sharlene LAWSON 350.1.13.10 i ty of [place] 4.2.7.2.686 [facility] [phone] [address] 2021-11-24 2021-11-24 Telephone [facility] 1.2.840.114 [id number] Univers 00:00:00 00:00:00 Cricket Lopez [employer] 350.1.13.10 ity [facility] 4.2.7.2.686 [place] as MATERNAL [phone] Med ical & CHILD 107 [facility] 2021-11-20 2021-11-20 Patient [facility] 1.2.840.114 [id number] Univers 00:00:00 00:00:00 Secure [facility] 350.1.13.10 ity [facility] 4.2.7.2.686 [place] as TOÑO?BLEA [id number] [address] MEDICAL OFFICE BUILDING 2021-11-19 2021-11-19 Letter JORDAN Santacruz 1.2.840.114 [id number] Univers 00:00:00 00:00:00 (Out) Leslie ARCE 350.1.13.10 it y of [facility] 4.2.7.2.686 Martin as [id number] [address] 2021-11-18 2021-11-18 Outpatient R [facility] [id number] Univers 10:41:40 23:59:00 FLACO lechuga o f [facility] 2021-11-18 2021-11-18 Hospital [facility] 1.2.808.474 [id number] Univers 10:41:40 23:59:00 Encounter Flaco HEALTH 350.1.13.10 ity of [place] 4.2.7.2.686 [place] as TOÑO?BLEA [phone] Me whit [place] 808 [facility] OFFICE [facility] 2021-11-18 2021-11-18 Urgent [facility] 1.2.840.114 [id number] Univers 10:20:00 10:53:20 Care [facility] 350.1.13.10 i ty of [place] 4.2.7.2.686 Martin as TOÑO?BLEA [phone] Ma whit [facility] 370 [facility] 2021-11-09 2021-11-09 Outpatient Farzana [facility] [id number] Univers 10:30:00 10:30:00 CELINA lechuga [facility] 2021-10-25 2021-10-25 Urgent Ileana Medrano [facility] 1..840.114 [id number] Univers 13:20:00 13:20:00 Care Oliver [facility] 350.1.13.10 ity of [place] 4.2.7.2.686 Martin as TOÑO?BLEA [phone] Ma whit [facility] 370 [facility] 2021-10-25 2021-10-25 Outpatient Farzana [facility] [id number] Univers 13:20:00 12:47:59 ILEANA lechuga [facility] 2021-10-25 2021-10-25 Patient [facility] 1.2.840.114 [id number] Univers 00:00:00 00:00:00 [facility] 350.1.13.10 ity of [place] 4.2.7.2.686 [place] as TOÑO?BLEA [id number] Ma whit [place] 044 [facility] OFFICE [facility] 2021-10-25 2021-10-25 Telephone Juan [facility] 1.2.532.107 [id number] Univers 00:00:00 00:00:00 Vijay HEALTH 350.1.13.10 it y of [place] 4.2.7.2.686 [place] as TOÑO?BLEA [id number] Ma whit [place] [address] MEDICAL OFFICE [facility] 2021-10-25 2021-10-25 Telephone Provider, [facility] 1.2.840.114 [id number] Univers 00:00:00 00:00:00 Ang Db HEALTH 350.1.13.10 it y of Urgent Care [place] 4.2.7.2.686 [place] TOÑO?BLEA [phone] Ma whit [place] 370 [facility] OFFICE [facility] 2021-10-25 2021-10-25 Telephone Nurse, [facility] 1.2.840.114 [id number] Univers 00:00:00 00:00:00 Db Urgent HEALTH 350.1.13.10 ity of Care [place] 4.2.7.2.686 [place] as TOÑO?BLEA [phone] Ma alessandra[address] OFFICE [facility] 2021-10-24 2021-10-24 Outpatient [facility] [id number] Univers 10:15:00 10:15:00 [facility] 2021-10-24 2021-10-24 Outpatient [facility] [id number] Univers 10:15:00 10:15:[address] [facility] 2021-10-11 2021-10-11 Outpatient Farzana [facility] [id number] Univers 09:30:00 09:30:[address] [facility] 2021-10-10 2021-10-10 Outpatient PRASANNA [facility] [id number] Univers 13:30:00 13:30:00 ity [facility] 2021-10-10 2021-10-10 Outpatient PRASANNA [facility] [id number] Univers 13:30:00 13:30:00 ity [facility] 2021-10-10 2021-10-10 Outpatient PRASANNA [facility] [id number] Univers 13:30:00 13:30:00 ity [facility] 2021-10-102021-10-10 Outpatient PRASANNA [facility] [id number] Univers 13:30:00 13:30:00 ity of [facility] 2021-10-10 2021-10-10 Outpatient R PRASANNA [facility] [id number] Univers 13:30:00 13:30:00 ity of [facility] 2021-10-10 2021-10-10 Outpatient [facility] [id number] Univers 13:30:00 13:30:00 ity of [facility] 2021-10-10 2021-10-10 Outpatient R ALICIA [facility] [id number] Univers 13:30:00 13:30:00 ity of [facility] 2021-10-05 2021-10-05 Patient Robb [facility] 1.2.840.114 [id number] Univers 00:00:00 00:00:00 Secure Msg Kendal Amaral HEALTH 350.1.13.10 ity of [place] 4.2.7.2.686 [place] as TOÑO?BLEA [id number] [address] OFFICE [facility] 2021-10-05 2021-10-05 Patient Robb [facility] 1.2.840.114 [id number] Univers 00:00:00 00:00:00 Secure Msg Kendal Amaral HEALTH 350.1.13.10 ity of [place] 4.2.7.2.686 [place] as TOÑO?BLEA [id number] [address] OFFICE [facility] 2021-10-04 2021-10-04 Pre Visit HILARIO Rodriguez 1.2.679.238 [id number] Univers 00:00:00 00:00:00 Outreach Melia TELLO 350.1.13.10 [place]y of [place].2.[place] [id number] [address] 2021-09-28 2021-09-28 Office Apurva [facility] 1.2.840.114 [id number] Univers 13:30:00 13:45:00 Visit Celina SAM 350.1.13.10 ity of [place] 4.2.7.2.686 [place] [id number] [address] 2021-09-28 2021-09-28 Outpatient R [facility] [id number] Univers 13:30:00 13:30:[address] [facility] 2021-09-28 2021-09-28 Outpatient R [facility] [id number] Univers 13:30:00 13:30:[address] [facility] 2021-09-28 2021-09-28 Patient [facility] 1.2.840.114 [id number] Univers 00:00:00 00:00:00 Secure Msg Celina SAM 350.1.13.10 [facility] 4.2.7.2.686 [place] [phone] [address] 2021-09-27 2021-09-27 Outpatient R [facility] [id number] Univers 14:00:00 14:00:[address] [facility] 2021-09-27 2021-09-27 [facility] [id number] Univers 09:30:00 09:30:00 [facility] 2021-09-27 2021-09-27 Outpatient R [facility] [id number] Univers 09:30:00 09:30:00 [facility] 2021-09-27 2021-09-27 Outpatient R ADITI [facility] [id number] Univers 09:30:00 09:30:00 [facility] 2021-09-26 2021-09-26 Outpatient R AKINSIPE[facility] [id number] Univers 10:45:00 10:45:00 CRICKET ity o [facility] 2021-09-26 2021-09-26 Outpatient R AK[facility] [id number] Univers 10:45:00 10:45:00 CRICKET ity o [facility] 2021-09-26 2021-09-26 [facility] 1.2.840.114 [id number] Univers 00:00:00 00:00:00 Secure [facility] 350.1.13.10 ity of [place] 4.2.7.2.686 [place] as TOÑO?BLEA [phone] [facility] 044 [facility] OFFICE [facility] 2021-09-26 2021-09-26 Patient Juan [facility] 1.2.840.114 [id number] Univers 00:00:00 00:00:00 Secure [facility] 350.1.13.10 ity of [place] 4.2.7.2.686 [place] as TOÑO?BLEA [id number] [facility] 044 [facility] 2021-09-25 2021-09-25 Urgent Flaco Boyd [facility] 1.2.840. 114 [id number] Univers 10:20:00 11:10:42 Care [facility] 350.1.13.10 ity of [place] 4.2.7.2.686 [place] as TOÑO?BLEA [id number] [address] 2021-09-25 2021-09-25 [facility] [id number] Univers 10:20:00 11:10:42 FLACO fitzpatrick [facility] 2021-09-25 2021-09-25 Outpatient [facility] [id number] Univers 10:20:00 10:20:00 [facility] ankush o [facility] 2021-09-25 2021-09-25 Outpatient R PRASANNA [facility] [id number] Univers 10:00:00 10:00:00 ity of [facility] 2021-09-25 2021-09-25 Telephone [facility] .2.840.114 [id number] Univers 00:00:00 00:00:00 [facility] 350.1.13.10 i ty of [place] 4.2.7.2.686 Martni as TOÑO?BLEA [id number] [address] 2021-09-25 2021-09-25 Patient Prasanna Vargas [facility] 1.2.633.982 [id number] Univers 00:00:00 00:00:00 Secure Msg Cam [place] 350.1.13.10 ity of [facility] 4.2.7.2.686 [place] BR[place] [phone] Ma dical NAL 134 [facility] 2021-09-25 2021-09-25 Telephone Sushmagracie [facility] 1.2.840.114 [id number] Univers 00:00:00 00:00:00 Cricket Lopez [employer]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 4.2.7.2.686 [place] as MATERNAL [phone] Med ical & CHILD 107 [facility] 2021-09-25 2021-09-25 Telephone Apurva [facility] 1.2.681.997 [id number] Univers 00:00:00 00:00:00 Celina Cannon FLACO 350.1.13.10 ity of [facility] 4.2.7.2.686 [place] [phone] [address] 2021-09-15 2021-09-15 Patient Robb [facility] 1.2.840.114 [id number] Univers 00:00:00 00:00:00 Secure Msg Kendal M HEALTH 350.1.13.10 ity [facility] 4.2.7.2.686 [place] TOÑO?BLEA [phone] Ma dicaliyah EY [address] MEDICAL OFFICE [facility] 2021-09-15 2021-09-15 Patient Robb [facility] 1.2.840.114 [id number] Univers 00:00:00 00:00:00 Secure Msg Kendal M HEALTH 350.1.13.10 ity of [place] 4.2.7.2.686 [place] as TOÑO?BLEA [phone] Ma dical EY 044 [facility] OFFICE [facility] 2021-09-15 2021-09-15 Patient Robb [facility] 1.2.840.114 [id number] Univers 00:00:00 00:00:00 Secure Msg Kendal M HEALTH 350.1.13.10 ity of [place] 4.2.7.2.686 [place] TOÑO?BLEA [id number] Ma dical EY [address] [place] [address] [address] [facility] 2021-09-14 2021-09-14 Patient Juan [facility] 1.2.840.114 [id number] Univers 00:00:00 00:00:00 Secure Msg Vijay HEALTH 350.1.13.10 ity of [place] 4.2.7.2.686 [place] as TOÑO?BLEA [phone] Ma alessandra[address] OFFICE [facility] 2021-09-12 2021-09-12 Outpatient Farzana [facility] [id number] Univers 10:30:00 10:30:00 CELINA lechuga [facility] 2021-09-12 2021-09-12 Outpatient Farzana [facility] [id number] Univers 10:30:00 10:30:00 CELINA chino [facility] 2021-09-12 2021-09-12 Patient Meet [facility] 1.2.840.114 [id number] Univers 00:00:00 00:00:00 Secure Msg Daniel CRAIG 350.1.13.10 ity of [place]2.[place].2.686 [place] MARGARET [phone] [facility] AND [facility] [address] [facility] 2021-09-12 2021-09-12 Orders Doctor JORDAN 1.2.840.114 [id number] Univers 00:00:00 00:00:00 Only Unassigned, YAZMIN 350.1.13.10 ity of [place] [facility] 4.2.7.2.686 Martin as [id number] [facility] [address] 2021-09-12 2021-09-12 Patient Juan [facility] 1.2.840.114 [id number] Univers 00:00:00 00:00:00 Secure Msg Vijay HEALTH 350.1.13.10 ity of [place] 4.2.7.2.686 [place] as TOÑO?BLEA [phone] Ma whit [place] [address] [place] [address] [facility] 2021-09-05 2021-09-05 Patient Juan [facility] 1.2.840.114 [id number] Univers 00:00:00 00:00:00 Secure Msg Vijay HEALTH 350.1.13.10 ity of [place] 4.2.7.2.686 [place] as TOÑO?BLEA [phone] Me dical KNEY [address] MEDICAL OFFICE BU[facility] 2021-09-04 2021-09-04 Patient Juan [facility] 1.2.840.114 [id number] Univers 00:00:00 00:00:00 Secure Msg Vijay HEALTH 350.1.13.10 ity of [place] 4.2.7.2.686 Martin as TOÑO?BLEA [phone] Me dical KNEY [address] [facility] 2021-08-25 2021-08-25 Telephone Aditi [facility] 1.2.840.114 [id number] Univers 00:00:00 00:00:00 Dania L HEALTH 350.1.13.10 it y of [place] 4.2.7.2.686 Martin as TOÑO?BLEA [phone] Me dical KNEY [address] [facility] OFFICE [facility] 2021-08-25 2021-08-25 Patient Juan [facility] [id number] [id number] Univers 00:00:00 00:00:00 Secure Msg Vijay HEALTH 350.1.13.10 ity of [place] 4.2.7.2.686 Martin as TOÑO?BLEA [phone] Ma dical KNEY [address] [facility] OFFICE [facility] 2021-08-24 2021-08-24 Telephone Juan [facility] [id number] Univers 00:00:00 00:00:00 Vijay HEALTH 350.1.13.10 it y of [place] 4.2.7.2.686 Martin as TOÑO?BLEA [phone] Me dical IVÁNEY [address] [place] [facility] 2021-08-24 2021-08-24 Patient Juan [facility] 1.2.840.114 [id number] Univers 00:00:00 00:00:00 Secure Msg Vijay HEALTH 350.1.13.10 ity of [place] 4.2.7.2.686 Martin as TOÑO?BLEA [phone] Ma dical KNMARY [address] [place] MEDICAL OFFICE [facility] 2021-08-23 2021-08-23 [facility].114 [id number] Univers 00:00:00 00:00:00 Secure Msg Vijay HEALTH 350.1.13.10 ity of [place] 4.2.7.2.686 Martin as TOÑO?BLEA [phone] Ma whit [facility] [address] [place] [address] [address] [facility] 2021-08-23 2021-08-23 Telephone [facility] [id number] Univers 00:00:00 00:00:00 Vijay HEALTH 350.1.13.10 it y of [place] 4.2.7.2.686 Martin as TOÑO?BLEA [phone] [facility] [address] OFFICE [facility] 2021-08-22 2021-08-22 Telephone [facility] 1.2.719.235 [id number] Univers 00:00:00 00:00:00 Vijay HEALTH 350.1.13.10 it y of [place] 4.2.7.2.686 Martin as TOÑO?BLEA [id number] [facility] [address] OFFICE [facility] 2021-08-22 2021-08-22 Patient [facility] 1.2.840.114 [id number] Univers 00:00:00 00:00:00 Secure Msg Hallie HEALTH 350.1.13.10 ity of [place] 4.2.7.2.686 Martin as TOÑO?BLEA [id number] [facility] [address] OFFICE [facility] 2021-08-18 2021-08-18 Telephone [facility] 1.2.281.728 [id number] Univers 00:00:00 00:00:00 Vijay HEALTH 350.1.13.10 it y of [place] 4.2.7.2.686 Martin as TOÑO?BLEA [phone] [facility] IVÁN[address] OFFICE [facility] 2021-08-17 2021-08-17 Outpatient Farzana [facility] [id number] Univers 09:00:00 09:00:00 CELINA lechuga [facility] 2021-08-17 2021-08-17 Outpatient Farzana [facility] [id number] Univers 09:00:00 09:00:00 CELINA ity [facility] 2021-08-16 2021-08-16 Patient Juan [facility] 1.2.840.114 [id number] Univers 00:00:00 00:00:00 Secure Msg Vijay PETTY 350.1.13.10 ity of [facility] 4.2.7.2.686 Martin as TOÑO?BLEA [id number] Ma alessandraaliyah MIKI 044 [facility] OFFICE [facility] 2021-08-15 2021-08-15 Office [facility] 1.2.840.114 [id number] Univers 15:30:00 16:16:42 Visit Adán [facility] 350.1.13.10 it y of [place] 4.2.7.2.686 Martin as TOÑO?BLEA [phone] Ma alessandraaliyah IVÁNMARY 198 [facility] OFFICE [facility] 2021-08-15 2021-08-15 [facility] [id number] Univers 15:30:00 16:16:42 [facility] 2021-08-15 2021-08-15 Outpatient Farzana [facility] [id number] Univers 15:30:00 15:30:00 [facility] 2021-08-15 2021-08-15 Outpatient [facility] [id number] Univers 15:30:00 15:30:00 [facility] 2021-08-15 2021-08-15 Outpatient [facility] [id number] Univers 15:30:00 15:30:00 [facility] 2021-08-15 2021-08-15 Emergency Aj [facility] ERT [id number] Univers 09:27:00 12:26:00 [facility] 2021-08-15 2021-08-15 [facility] 1.2.250.645 [id number] Univers 09:27:00 12:26:00 Maura LAWSON 350.1.13.10 ity of [place] 4.2.7.2.686 [facility] [id number] [address] 2021-08-15 2021-08-15 Emergency X [facility] ERT [id number] Univers 09:27:00 12:26:00 MAURA lechuga [facility] 2021-08-14 2021-08-14 Outpatient [facility] [id number] Univers 13:25:00 23:59:00 VIJAY lechuga [facility] 2021-08-14 2021-08-14 Outpatient R [facility] [id number] Univers 13:25:00 23:59:00 VIJAY lechuga [facility] 2021-08-14 2021-08-14 Outpatient R [facility] [id number] Univers 13:25:00 13:25:00 VIJAY lechuga [facility] 2021-08-14 2021-08-14 Outpatient R [facility] [id number] Univers 12:19:07 13:24:00 VIJAY lechuga [facility] 2021-08-14 2021-08-14 Outpatient R [facility] [id number] Univers 12:19:07 13:24:00 VIJAY lechuga [facility] 2021-08-14 2021-08-14 Junior Network Administrator Lab, Ang [facility] 1.2.840.1 14 [id number] Univers 12:30:00 13:01:24 Visit Vijay Martinez 350.1.13.10 ity of [place] 4.2.7.2.686 Martin as TOÑO?BLEA [phone] [address] OFFICE [facility] 2021-08-14 2021-08-14 Junior Network Administrator Lab, Ang - Db [facility] 1.2.840.1 14 [id number] Univers 12:30:00 12:45:00 Visit Vijay Martinez 350.1.13.10 ity of [place] 4.2.7.2.686 Martin as TOÑO?BLEA [phone] [address] OFFICE [facility] 2021-08-14 2021-08-14 Office Víctorkassandra [facility] 1.2.840.114 [id number] Univers 11:30:00 12:31:12 Visit Vijay PETTY 350.1.13.10 it y of [place] 4.2.7.2.686 Martin as TOÑO?BLEA [phone] Me dicaliyah [place] [address] [place] MEDICAL OFFICE [facility] 2021-08-14 2021-08-14 Outpatient R [facility] [id number] Univers 11:30:00 12:31:12 VIJAY ankush [facility] 2021-08-14 2021-08-14 [facility] 1.2.840.114 [id number] Univers 00:00:00 00:00:00 Secure Msg Vijay HEALTH 350.1.13.10 ity of [place] 4.2.7.2.686 Martin as TOÑO?BLEA [phone] Me whit [place] [address]44 [facility] OFFICE [facility] 2021-08-09 2021-08-09 Outpatient R [facility] [id number] Univers 14:45:00 14:45:[address] [facility] 2021-08-09 2021-08-09 Telephone [facility] 1.2.673.607 [id number] Univers 00:00:00 00:00:00 Vijay HEALTH 350.1.13.10 it y of [place] 4.2.7.2.686 Martin as TOÑO?BLEA [id number] Me whit [place] 044 [facility] 2021-08-08 2021-08-08 Outpatient R [facility] [id number] Univers 11:30:00 23:59:00 VIJAY lechuga [facility] 2021-08-08 2021-08-08 Hospital [facility] 1.2.840.114 [id number] Univers 11:30:00 23:59:00 Encounter Vijay HEALTH 350.1.13.10 ity [facility] 4.2.7.2.686 Martin as TOÑO?BLEA [phone] Me whit [place] 808 [facility] OFFICE [facility] 2021-08-08 2021-08-08 Outpatient R [facility] [id number] Univers 11:15:00 11:15:00 VIJAY lechuga [facility] 2021-08-08 2021-08-08 Outpatient R [facility] [id number] Univers 11:00:00 11:00:00 VIJAY lechuga [facility] 2021-08-08 2021-08-08 Patient Doctor JORDAN 1.2.840.114 [id number] Univers 00:00:00 00:00:00 Secure Msg UnassignedYAZMIN 350.1.13.10 ity of [facility][1] 4.2.7.2.686 Martin as [id number] [address] 2021-08-07 2021-08-07 Office Juan [facility] 1.2.840.114 [id number] Univers 09:30:00 10:23:21 Visit Vijay PETTY 350.1.13.10 it y of [place] 4.2.7.2.686 Martin as TOÑO?BLEA [id number] [address] OFFICE [facility] 2021-08-07 2021-08-07 Outpatient R [facility] [id number] Univers 09:30:00 10:23:21 VIJAY lechuga [facility] 2021-08-07 2021-08-07 Outpatient R [facility] [id number] Univers 09:30:00 09:30:00 VIJAY lechuga [facility] 2021-08-07 2021-08-07 [facility] 1.2.840.114 [id number] Univers 00:00:00 00:00:00 Secure Msg Vijay HEALTH 350.1.13.10 ity of [place] 4.2.7.2.686 Martin as TOÑO?BLEA [id number] [address] OFFICE [facility] 2021-08-07 2021-08-07 Patient Juan [facility] 1.2.840.114 [id number] Univers 00:00:00 00:00:00 Secure Msg Vijay HEALTH 350.1.13.10 ity of [facility] 4.2.7.2.686 Martin as TOÑO?BLEA [id number] [address] OFFICE [facility] 2021-08-07 2021-08-07 Patient Apurva [facility] 1.2.840.114 [id number] Univers 00:00:00 00:00:00 Secure Msg Celina A FLACO 350.1.13.10 ity of [facility] [place].2.7.2.[place] [id number] [address] 2021-08-04 2021-08-04 Outpatient R SHAD[facility] [id number] Univers 10:00:00 10:00:00 PETRA ity [facility] 2021-08-04 2021-08-04 Patient Juan [facility] 1.2.840.114 [id number] Univers 00:00:00 00:00:00 Secure Msg Vijay HEALTH 350.1.13.10 ity of [place] 4.2.7.2.686 Martin as TOÑO?BLEA [id number] Ma whit [place] [address] [place] [address] MEDICAL OFFICE BUILDING 2021-08-03 2021-08-03 Office JITENDRA Diaz 1..840.114 [id number] Univers 11:00:00 12:48:43 Visit Jayy Y 350.1.13.10 it y of [facility] 4.2.7.2.686 Martin as BANK [phone] [facility]. [address] [place] [address] 2021-08-03 2021-08-03 Outpatient [facility] [id number] Univers 11:00:00 12:48:43 JAYY ity [facility] 2021-08-03 2021-08-03 Outpatient R [facility] [id number] Univers 11:00:00 11:00:00 JAYY ity [facility] 2021-08-03 2021-08-03 Patient Apurva [facility] 1.2.840.114 [id number] Univers 00:00:00 00:00:00 Secure Msg Celina A FLACO 350.1.13.10 ity of [facility] 4.2.7.2.686 [place] [id number] [address] 2021-08-02 2021-08-02 Telephone [facility] 1.2.466.036 [id number] Univers 00:00:00 00:00:00 Vijay HEALTH 350.1.13.10 it y of [facility] 4.2.7.2.686 Martin as TOÑO?BLEA [phone] Me dical [address] MEDICAL OFFICE [facility] 2021-07-21 2021-07-21 Outpatient [facility] [id number] Univers 08:00:00 08:52:[address] [facility] 2021-07-17 2021-07-17 Outpatient R [facility] [id number] Univers 11:30:00 11:30:00 VIJAY chino [facility] 2021-06-19 2021-06-19 Telephone [facility] 1.2.434.722 [id number] Univers 00:00:00 00:00:00 [facility] 350.1.13.10 it y of [place] 4.2.7.2.686 Martin as TOÑO?BLEA [id number] [address] OFFICE [facility] 2021-06-09 2021-06-09 Telephone [facility] 1.2.449.198 [id number] Univers 00:00:00 00:00:00 Reji [place] 350.1.13.10 ity [facility] 4.2.7.2.686 [place] [id number] [place] [id number] [facility] 2021-06-06 2021-06-06 Outpatient R DEYVI [facility] [id number] Univers 11:15:00 11:15:[address] [facility] 2021-06-06 2021-06-06 Outpatient R DEYVI [facility] [id number] Univers 11:15:00 11:15:[address] [facility] 2021-06-02 2021-06-02 Outpatient R CRISTINA [facility] [id number] Univers 15:45:00 15:45:00 WONDIFUL itchino o f [facility] 2021-05-31 2021-05-31 Outpatient R [facility] [id number] Univers 10:00:00 10:46:31 VIJAY lechuga [facility] 2021-05-31 2021-05-31 Office [facility] 1.2.840.114 [id number] Univers 10:00:00 10:46:31 Visit Vijay HEALTH 350.1.13.10 it y of [place] 4.2.7.2.686 Martin as TOÑO?BLEA [id number] [address] OFFICE [facility] 2021-05-31 2021-05-31 Outpatient R [facility] [id number] Univers 10:00:00 10:46:31 VIJAY ity of [facility] 2021-05-31 2021-05-31 Orders Doctor JORDAN 1.2.840.114 [id number] Univers 00:00:00 00:00:00 Only Unassigned, YAZMIN 350.1.13.10 ity of [place] [facility] 4.2.7.2.686 Martin as [id number] [address] 2021-05-26 2021-05-26 Telephone [facility] 1.2.600.704 [id number] Univers 00:00:00 00:00:00 Skylar A HEALTH 350.1.13.10 i ty of [place] 4.2.7.2.686 Martin as TOÑO?BLEA [id number] [address] OFFICE [facility] 2021-05-26 2021-05-26 Patient Prasanna Vargas [facility] 1.2.822.633 [id number] Univers 00:00:00 00:00:00 Secure Msg Cam LULU 350.1.13.10 ity of [place] 4.2.7.2.686 [place] [id number] [address] 2021-05-25 2021-05-25 Telemedici [facility]eliUNION COUNTY [facility] 1.2.840.114 [id number] Univers 14:00:00 14:30:00 ne Visit Skylar A HEALTH 350.1.13.10 ity of [place] 4.2.7.2.686 Martin as TOÑO?BLEA [id number] [address] OFFICE [facility] 2021-05-25 2021-05-25 Outpatient R YANELI [facility] [id number] Univers 14:00:00 14:00:00 SKYLAR ity of [facility] 2021-05-25 2021-05-25 [facility] [id number] Univers 14:00:00 14:00:00 SKYLAR ity [facility] 2021-05-24 2021-05-24 Telephone Ponce [facility] 1.2.093.189 [id number] Univers 00:00:00 00:00:00 Rad LAWSON 350.1.13.10 ity of [place] 4.2.7.2.686 [place] [id number] Ma dical NAL 059 [facility] 2021-05-23 2021-05-23 Outpatient [facility] [id number] Univers 10:00:00 10:00:00 ity [facility] 2021-05-23 2021-05-23 Outpatient [facility] [id number] Univers 10:00:00 10:00:00 [facility] 2021-05-16 2021-05-16 Outpatient [facility] [id number] Univers 09:00:00 09:00:[address] [facility] 2021-05-12 2021-05-12 Orders Doctor JORDAN 1.2.840.114 [id number] Univers 00:00:00 00:00:00 Only Unassigned, YAZMIN 350.1.13.10 it[facility] 4.2.7.2.686 [place] as [id number] [address] 2021-05-10 2021-05-10 Outpatient [facility] [id number] Univers 13:00:00 13:00:00 WONDIFUL ity o f [facility] 2021-05-10 2021-05-10 Outpatient [facility] [id number] Univers 13:00:00 13:00:00 WONDIFUL ity o f [facility] 2021-05-09 2021-05-09 Telephone Prasanna Vargas [facility] 1.2.840.114 [id number] Univers 00:00:00 00:00:00 Jm [place] 350.1.13.10 i ty of [facility] 4.2.7.2.[place] [id number] Ma dical NAL 134 [facility] 2021-05-09 2021-05-09 Patient Ponce, [facility] 1.2.840.114 [id number] Univers 00:00:00 00:00:00 Secure Msg Rad [place] 350.1.13.10 ity of [facility] 4.2.7.2.686 [place] [phone] Ma dical NAL 059 [facility] 2021-05-08 2021-05-08 Outpatient [facility] [id number] Univers 16:00:00 16:00:00 JE ity [facility] 2021-05-08 2021-05-08 Outpatient R [facility] [id number] Univers 16:00:00 16:00:00 JE itchino [facility] 2021-05-08 2021-05-08 Patient [facility] 1.2.840.114 [id number] Univers 00:00:00 00:00:00 Secure Msg Rad [place] 350.1.13.10 ity of [place] 4.2.7.2.686 [place] [id number] Ma dical NAL 059 [facility] 2021-05-08 2021-05-08 Patient [facility] 1.2.840.114 [id number] Univers 00:00:00 00:00:00 Secure Msg Rad [place] 350.1.13.10 ity of [facility] 4.2.7.2.686 [place] [id number] Ma dical NAL 059 [facility] 2021-05-03 2021-05-03 Outpatient R ARJUN [facility] [id number] Univers 11:15:36 23:59:00 REJI lechuga o f [facility] 2021-05-03 2021-05-03 [facility] 1.2.840.114 [id number] Univers 11:15:36 23:59:00 Encounter Reji LAW[place] 350.1.13.10 ity of [facility] 4.2.7.2.686 [place] [id number] Ma dical NAL 846 [facility] 2021-05-03 2021-05-03 Telephone [facility] 1.2.840.114 [id number] Univers 00:00:00 00:00:00 Wondiful A HEALTH 350.1.13.10 ity of [place] 4.2.7.2.686 [place] as TOÑO?BLEA [id number] [address] OFFICE [facility] 2021-05-02 2021-05-02 Telephone [facility] 1.2.593.320 [id number] Univers 00:00:00 00:00:00 [facility]il [facility] [place] 350.1.13.10 ity of [place] 4.2.7.2.686 [place] [id number] [address] 2021-05-02 2021-05-02 Patient [facility] 1.2.840.114 [id number] Univers 00:00:00 00:00:00 Secure Msg Wondiful A HEALTH 350.1.13.10 ity of [place] 4.2.7.2.686 Martin as TOÑO?BLEA [id number] [address] 2021-05-02 2021-05-02 Telephone [facility]UN[facility] 1.2.840.114 [id number] Univers 00:00:00 00:00:00 Wondiful A HEALTH 350.1.13.10 ity of [place] 4.2.7.2.686 Martin as TOÑO?BLEA [phone] [address] OFFICE [facility] 2021-05-02 2021-05-02 [facility] 1.2.840.114 [id number] Univers 00:00:00 00:00:00 Secure Msg Sendil [facility] [place] 350.1.13.10 ity of [place] 4.2.7.2.686 [place] [id number] [address] 2021-04-27 2021-04-27 Emergency X [facility] ERT [id number] Univers 14:24:00 15:49:00 MAGGIE lechuga of [facility] 2021-04-27 2021-04-27 Emergency [facility]UNION [facility] 1.2.840.114 [id number] Univers 14:24:00 15:49:00 Maggie LAWSON 350.1.13.10 ity of [place] 4.2.7.2.686 [facility] [phone] [facility] [address] [place] 2021-04-27 2021-04-27 Laboratory Only, Ang Db Test [facility] 1.2.8 40.114 [id number] Univers 11:15:00 11:30:00 Only Unknown, Attending HEALTH 350.1.13.10 ity of Thony Johnson [place] 4.2.7.2.686 [place] TOÑO?BLEA [id number] Ma whit [facility] [address] MEDICAL OFFICE BUILDING 2021-04-27 2021-04-27 Outpatient R SIL [facility] [id number] Univers 11:15:00 11:15:00 THONY ity of [facility] 2021-04-27 2021-04-27 Orders Doctor JORDAN 1.2.840.114 [id number] Univers 00:00:00 00:00:00 Only Unassigned, YAZMIN 350.1.13.10 ity of [place] [facility] 4.2.7.2.686 Martin as [id number] [facility] [address] [place] 2021-04-20 2021-04-20 Outpatient R JUSTINE [facility] [id number] Univers 15:00:00 15:00:00 SCOTT ity of [facility] 2021-04-13 2021-04-13 Patient Cristina [facility] 1.2.840.114 [id number] Univers 00:00:00 00:00:00 Secure Msg Wondiful A HEALTH 350.1.13.10 ity of [place] 4.2.7.2.686 [place] as TOÑO?BLEA [id number] Ma whit [place] [address] MEDICAL OFFICE BUILDING 2021-04-12 2021-04-12 Telephone Cristina [facility] 1.2.840.114 [id number] Univers 00:00:00 00:00:00 Wondiful A HEALTH 350.1.13.10 ity of [place] 4.2.7.2.686 Martin as TOÑO?BLEA [id number] [facility] [address] MEDICAL OFFICE BUILDING 2021-03-27 2021-03-27 Telephone Prasanna Vargas [facility] 1.2.840.114 [id number] Univers 00:00:00 00:00:00 Cam [facility] 350.1.13.10 i ty of [place] 4.2.7.2.[place] [id number] [facility] 134 [facility] 2021-03-23 2021-03-23 Outpatient R KAVYA [facility] [id number] Univers 13:30:00 13:30:00 CHILVANA ity o f [facility] 2021-03-23 2021-03-23 Outpatient R KAVYA [facility] [id number] Univers 13:30:00 13:30:00 CHILVANA ity o f [facility] 2021-03-22 2021-03-22 Outpatient [facility] [id number] Univers 09:20:00 09:20:00 ATAGERARDO [facility] 2021-03-22 2021-03-22 Outpatient R [facility] [id number] Univers 09:20:00 09:20:00 [facility] 2021-03-20 2021-03-20 Outpatient R CRISTINA [facility] [id number] Univers 00:00:00 00:00:00 WONDIFUL ity o f [facility] 2021-03-18 2021-03-18 Donaldo [facility] 1.2.840.114 [id number] Univers 00:00:00 00:00:00 Management Wondiful A HEALTH 350.1.13.10 ity of [place] 4.2.7.2.686 Martin as TOÑO?BLEA [id number] [facility] [address] [place] MEDICAL OFFICE [facility] 2021-03-16 2021-03-16 Junior Network Administrator Lab, Ang - [place] [facility] 1.2.840.1 14 [id number] Univers 11:16:07 11:31:07 Visit Claudette Evans A HEALTH 350.1.13.1 0 ity of [place] 4.2.7.2.686 [place] as TOÑO?BLEA [id number] Ma whit [place] [address] [place] MEDICAL OFFICE [facility] 2021-03-16 2021-03-16 Outpatient R CRISTINA [facility] [id number] Univers 11:30:00 11:30:00 WONDIFUL ity o f [facility] 2021-03-16 2021-03-16 [facility] [id number] Univers 11:00:00 11:14:45 WONDIFUL ity o f [facility] 2021-03-16 2021-03-16 Office [facility] 1.2.840.114 [id number] Univers 10:00:58 11:14:45 Visit Wondiful A HEALTH 350.1.13.10 ity of [place] 4.2.7.2.686 [place] as TOÑO?BLEA [id number] Ma whit [place] 044 [facility] OFFICE [facility] 2021-03-16 2021-03-16 Patient [facility] 1.2.840.114 [id number] Univers 00:00:00 00:00:00 Secure Msg Wondiful A HEALTH 350.1.13.10 ity of [place] 4.2.7.2.686 [place] as TOÑO?BLEA [id number] Ma whit [place] 044 [facility] 2021-03-02 2021-03-02 Outpatient [facility] [id number] Univers 16:15:00 16:15:00 WONDIFUL ity o f [facility] 2021-02-28 2021-02-28 Outpatient R [facility] [id number] Univers 18:30:00 18:30:00 ILEANA itchino of [facility] 2021-02-28 2021-02-28 [facility] 1.2.840.114 [id number] Univers 00:00:00 00:00:00 Wondiful [facility] [id number] ity of [place] [id number] Martin as Toño?Blea [phone] Me whit ocasioey 044 [facility] 2021-02-27 2021-02-27 Outpatient R [facility] [id number] Univers 09:00:00 09:00:00 AMELIA lechuga of [facility] 2021-02-23 2021-02-[address] [facility] [id number] Univers 00:00:00 00:00:00 Wondiful [facility] [id number] [place]y of [place] [id number] Martin as Toño?Blea [phone] Ma dicaliyah livingston 044 [facility] 2021-02-10 2021-02-10 Emergency Kaycee Méndez [facility] [id number] Univers 18:12:00 23:39:00 Sharlene [place] 350.1.13.10 i [place]2.7.2.[place] [phone] [facility] [address] [place] 2021-02-09 2021-02-[address] 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 1.2.840.114 [id number] Univers 12:23:13 13:47:12 Visit Wondiful [facility] 350.1.13.10 ity of [place] [id number] Martin as Toño?Blea [phone] [address] [facility] System 2021-02-09 2021-02-09 Outpatient R [facility] [id number] Univers 13:00:00 13:00:00 WONDIFUL ity o f [facility] 2021-02-08 2021-02-08 Outpatient R NEHEMIAH [facility] [id number] Univers 10:20:00 10:20:00 [facility] 2021-02-02 2021-02-02 [facility] [id number] Univers 10:30:00 10:30:00 SKYLAR lechuga [facility] 2021-02-02 2021-02-02 [facility]phone [facility] 1..840.114 [id number] Univers 00:00:00 00:00:00 Wondiful [facility] 350.1.13.10 [place]y of [place] 4.2.7.2.686 Martin as Toño?Blea [phone] [address] Office [facility] 2021-02-01 2021-02-01 [facility] [id number] Univers 08:30:00 08:30:[address] [facility] 2021-01-31 2021-01-31 [facility] 1.2.840.114 [id number] Univers 18:44:04 19:41:26 Care [facility] [id number] i ty of [place] 4.2.7.2.686 Martin as Toño?Blea [phone] [address] Medical Office [facility] 2021-01-31 2021-01-31 Outpatient [facility] [id number] Univers 19:00:00 19:00:00 FLACO ity o f [facility] 2021-01-31 2021-01-31 Telephone [facility] .2.840.114 [id number] Univers 00:00:00 00:00:00 Wondiful [facility] 350.1.13.10 [place] of [place] 4.2.7.2.686 Martin as Toño?Blea [phone] Ma dicaliyah livingston [address] [place] Medical Office [facility] 2021-01-30 2021-01-30 Telephone [facility] 1.2.526.056 [id number] Univers 00:00:00 00:00:00 Sendil Cuate Lawson 350.1.13.10 ity [facility] 4.2.7.2.686 [place] dailey essio [phone] Ma whit [facility] 059 [facility] 2021-01-26 2021-01-26 Outpatient [facility] [id number] Univers 14:00:00 14:00:00 [facility]-01-[facility] 2021-01-25 [facility] [id number] Univers 15:00:00 15:00:00 [facility] 2021-01-20 2021-01-20 Telemedici [facility] 1.2.840.114 [id number] Univers 16:51:22 17:12:41 ne Visit Skylar Kassandra [facility] 350.1.13.10 [facility] 4.2.7.2.686 [place] as Toño?Blea [phone] [address] Office [facility] 2021-01-20 2021-01-20 Outpatient [facility] [id number] Univers 16:30:00 16:30:[address] [facility] 2021-01-19 2021-01-19 Outpatient [facility] [id number] Univers 10:15:00 10:15:00 [facility] 2021-01-14 2021-01-14 JORDAN Guzman 1.2.840.114 [id number] Univers 00:00:00 00:00:00 Management Kassandra ARCE 350.1.13.10 [facility] 4.2.7.2.686 [place] as [phone] [address] 2021-01-12 2021-01-12 Emergency [facility] [id number] [id number] Univers 16:10:00 19:45:00 Karin Lawson 350.1.13.10 i ty of [place]2.7.2.686 [place] [phone] [facility] [address] [place] 2021-01-12 2021-01-12 Outpatient R [facility] [id number] Univers 15:20:00 15:20:00 ILEANA chino [facility] 2021-01-12 2021-01-12 Urgent Thony Johnson [facility] 1.2.840.114 [id number] Univers 14:46:57 15:06:57 Noelle Ileana Medrano [facility] 350.1.13.10 ity of [place] 4.2.7.2.686 Martin as Toño?Blea [phone] [address] Office [facility] 2020-12-26 2020-12-26 Outpatient [facility] [id number] Univers 15:30:00 16:13:[address] [facility] 2020-12-26 2020-12-26 [facility] 1.2.840.114 [id number] Univers 15:30:00 16:13:32 Visit Rad LAWSON 350.1.13.10 ity of [place].2.7.2.686 [place] PROF[place] [phone] [address] 2020-12-26 2020-12-26 Office [facility] 1.2.840.114 [id number] Univers 15:00:32 16:13:32 Visit Rad Lawson 350.1.13.10 ity of [place].2.7.2.686 [place] Profess[place] [phone] Ma dicme nal [address] [place] [address] 2020-12-26 2020-12-26 Outpatient R [facility] [id number] Univers 15:30:00 15:30:00 SENDIL ankush [facility] 2020-11-22 2020-11-22 Outpatient Farzana [facility]IXON [facility] [id number] Univers 11:00:00 11:00:00 CELINA lechuga [facility] 2020-11-10 2020-11-10 Urgent Alissa Collins [facility] 1.2.840.114 [id number] 18:42:46 19:53:43 [facility] 350.1.13.10 Lulu 4.2.7.2.686 [facility] [phone] nal 0[address] 2020-11-10 2020-11-10 Outpatient [facility] [id number] Univers 19:00:00 19:00:00 ankush [facility] 2020-10-31 2020-10-31 Emergency Kaycee Méndez [facility] 1.2.840.114 [id number] 18:52:00 22:15:00 Sharlene Lawson 350.1.13.10 [place] 4.2.7.2.686 Dora [phone] 084 2020-10-31 2020-10-31 Outpatient R NATASHA [facility] [id number] Univers 19:00:00 19:00:00 CARI davis [facility] 2020-10-31 2020-10-31 Orders Doctor JORDAN 1.2.840.114 [id number] 00:00:00 00:00:00 Only Unassigned, YAZMIN 350.1.13.10 Hatley [facility] 4.2.7.2.686 [id number] [id number] 2020-10-20 2020-10-20 Emergency Dev, K [facility] 1.2.840.114 [id number] 14:02:00 17:13:00 Sharlene Lawson 350.1.13.10 [place] 4.2.7.2.686 [place]ora [phone] 084 2020-10-14 2020-10-14 [facility] Prasanna Vargas [facility] 1.2.840.114 [id number] 10:00:00 23:59:00 Remington Lawson 350.1.13.10 [place] 4.2.7.2.686 [place]ora [phone] [id number] 2020-10-14 2020-10-14 Out[facility] [id number] Univers 13:30:00 13:30:00 CELINA lechuga [facility] 2020-10-09 2020-10-09 Emergency [facility] 1.2.652.896 [id number] 12:00:00 15:57:00 Anna Jamarcus Lulu 350.1.13.10 [place] 4.2.7.2.686 [place] [phone] [id number] 2020-10-06 2020-10-06 Office Alicia [facility] 1.2.455.836 [id number] 08:53:00 09:46:44 Visit Jm Lawson 350.1.13.10 [place] 4.2.7.2.686 Professio [phone] nal 134 [facility] 2020-10-06 2020-10-06 Outpatient Farzana VARGAS [facility] [id number] Univers 09:30:00 09:30:[address] [facility] 2020-10-04 2020-10-04 Outpatient Farzana [facility] [id number] Univers 14:00:00 14:00:[facility] 2020-09-30 2020-09-30 Outpatient Farzana [facility] [id number] Univers 10:30:00 10:30:[address] [facility] 2020-09-29 2020-09-29 Outpatient Frazana SHAY [facility] [id number] Univers 13:45:00 13:45:[address] [facility] 2020-09-06 2020-09-06 Outpatient Farzana VARGAS [facility] [id number] Univers 15:30:00 15:30:[address] [facility] 2020-09-02 2020-09-02 Outpatient DARRION QUIROZ [facility] [id number] Univers 15:40:00 15:40:[address] [facility] 2020-08-31 2020-08-31 Outpatient Farzana SERRA [facility] [id number] Univers 10:30:00 10:30:[address] [facility] 2020-08-18 2020-08-18 Outpatient Farzana VARGAS [facility] [id number] Univers 09:30:00 09:30:[address] [facility] 2020-08-11 2020-08-11 Outpatient R PRASANNA VARGAS [facility] [id number] Univers 13:30:00 13:30:00 ity [facility] 2020-08-04 2020-08-04 Outpatient R JUSTINE [facility] [id number] Univers 14:00:00 14:00:00 SCOTT ity [facility] 2020-07-28 2020-07-28 Outpatient R [facility]CE [facility] [id number] Univers 10:30:00 10:30:00 [facility] 2020-06-30 2020-06-30 Outpatient R [facility] [id number] Univers 16:15:00 16:15:00 WONDIFUL ity o f [facility] 2020-06-17 2020-06-17 Outpatient R DARRION WYATT [facility] [id number] Univers 15:00:00 15:00:[address] [facility] 2020-06-16 2020-06-16 Outpatient R [facility] [id number] Univers 15:30:00 15:30:00 [facility] 2020-06-09 2020-06-09 Outpatient R NI DISLA [facility] [id number] Univers 12:30:00 12:30:00 [facility] 2020-06-08 2020-06-08 Outpatient R NI DISLA [facility] [id number] Univers 08:00:00 08:00:00 [facility] 2020-06-02 2020-06-02 Outpatient R P[facility]CE [facility] [id number] Univers 09:00:00 09:00:00 [facility] 2020-05-28 2020-05-28 Outpatient R NATASHA [facility] [id number] Univers 10:00:00 10:00:00 CARI ity o f [facility] 2020-05-24 2020-05-24 Outpatient R NI DISLA [facility] [id number] Univers 10:00:00 10:00:00 ity [facility] 2020-05-19 2020-05-19 Outpatient R OSITO [facility] [id number] Univers 16:30:00 16:30:00 [facility] 2020-05-17 2020-05-17 Outpatient R DARRION WYATT [facility] [id number] Univers 13:00:00 13:00:[address] [facility] 2020-05-16 2020-05-16 Outpatient R CRISTINA[facility] [id number] Univers 16:00:00 16:00:00 WONDIFUL ity o f [facility] 2020-05-08 2020-05-08 Emergency X VIRGIE [facility] ERT [id number] Univers 10:24:00 13:03:[address] [facility] 2020-05-03 2020-05-03 Outpatient R [facility] [id number] Univers 15:00:00 15:00:00 WONDIFUL ity o f [facility] 2020-04-30 2020-05-01 Outpatient X HOFF, [facility] JOSÉ MANUEL [id number] Univers 11:14:00 15:50:[address] [facility] 2020-04-30 2020-04-30 Outpatient R JASPAL [facility] [id number] Univers 10:20:00 10:20:[address] [facility] 2020-04-30 2020-04-30 Outpatient R JASPAL [facility] [id number] Univers 10:15:00 10:15:[address] [facility] 2020-04-28 2020-04-28 Outpatient R OSITO [facility] [id number] Univers 14:00:00 14:00:00 [facility] 2020-04-25 2020-04-25 Outpatient R [facility]INA [facility] [id number] Univers 16:15:00 16:15:00 WONDIFUL ity o f [facility] 2020-04-18 2020-04-18 Outpatient R CORETTA [facility] [id number] Univers 10:00:00 10:00:00 [facility] 2020-04-15 2020-04-15 Outpatient R PONCE [facility] [id number] Univers 10:30:00 10:30:[address] [facility] 2020-04-12 2020-04-13 [facility] [id number] Univers 13:38:00 16:25:[address] [facility] 2020-03-17 2020-03-17 Outpatient Farzana [facility] [id number] Univers 16:15:00 16:15:00 [facility] 2020-03-04 2020-03-04 Refill Coretta [facility] 1.2.840.114 [id number] 00:00:00 00:00:00 MULTISPEC 350.1.13.10 IALTY 4.2.7.2.686 CENTER [id number] [facility] 2020-02-25 2020-02-25 Outpatient Farzana HITCHCOCK [facility] [id number] Univers 16:00:00 16:00:[address] [facility] 2020 2020 Outpatient Farzana [facility] [id number] Univers 14:00:00 14:00:00 [facility] 2020-02-08 2020-02-08 Outpatient PRASANNA LOOMIS [facility] [id number] Univers 10:30:00 10:30:[address] [facility] 2020-02-04 2020-02-04 Outpatient R CORETTA [facility] [id number] Univers 13:30:00 13:30:[address] [facility] 2020-01-23 2020-01-23 Outpatient R [facility] [id number] Univers 10:15:00 10:15:[address] [facility] 2020-01-21 2020-01-21 Outpatient R CORETTA [facility] [id number] Univers 13:00:00 13:00:[address] [facility] 2020-01-14 2020-01-14 Outpatient R CORETTA [facility] [id number] Univers 16:00:00 16:00:[address] [facility] 2020-01-05 2020-01-05 Outpatient R PRASANNA VARGAS [facility] [id number] Univers 13:45:00 13:45:00 [facility] 2019-12-03 2019-12-03 Outpatient R AKINSIPE[facility] [id number] Univers 10:30:00 10:30:00 CRICKET ity o f [facility] 2019-11-27 2019-11-27 Outpatient R VANAPHAN, [facility] [id number] Univers 11:00:00 11:00:00 [facility] 2019-11-25 2019-11-25 Outpatient R VANAPHAN, [facility] [id number] Univers 08:00:00 08:00:00 [facility] 2019-11-18 2019-11-18 Outpatient R VANAPHAN, [facility] [id number] Univers 10:00:00 10:00:00 [facility] 2019-09-02 2019-09-02 Outpatient R AKINSIPE, [facility] [id number] Univers 11:00:00 11:00:00 CRICKET maradiagay o susan [facility] 2019-08-14 2019-08-14 Outpatient R VANAPHAN, [facility] [id number] Univers 10:15:00 10:15:00 [facility] 2019-08-13 2019-08-13 Outpatient R AKINSIPE, [facility] [id number] Univers 11:00:00 11:00:00 CRICKET lechuga o susan [facility] 2019-08-12 2019-08-12 Outpatient R [facility] [id number] Univers 09:00:00 09:00:[address] [facility] 2019-07-20 2019-07-20 Outpatient PRASANNA HERRERA [facility] CHRIS [id number] Univers 16:06:00 16:06:[address] [facility] 2019-07-20 2019-07-20 Outpatient R AKINSIPE, [facility] [id number] Univers 08:15:00 08:15:00 CRICKET ity o f [facility] 2019-07-13 2019-07-13 Outpatient R AKINSIPE, [facility] [id number] Univers 08:00:00 08:00:00 CRICKET ity o f [facility] 2019-07-12 2019-07-12 Outpatient P PRASANNA VARGAS [facility] CHRIS [id number] Univers 13:39:00 13:39:[address] [facility] 2019-07-06 2019-07-06 Outpatient R BRANDON [facility] [id number] Univers 13:00:00 13:00:00 CRICKET lechuga o susan [facility] 2019-06-13 2019-06-13 Emergency X MARGARITA [facility] ERT [id number] Univers 10:40:46 12:35:00 [facility] 2019-05-13 2019-05-14 Outpatient P PRASANNA VARGAS [facility] CHRIS [id number] Univers 23:07:00 09:15:[address] [facility] Results Test Description Test Time Test Comments Results Result Comments Source TEST, SERUM 2022-08-01 00:23:34 Test Item Value Reference Range Interpretation Comme nts PREG SERUM (test code = 4048433541) Negative WESLEY (test code = WESLEY) Less than 10 IU/L. ?If low titer or ectopic is suspected, resubmit specimen in 48-72 hours. [facility] ([id number])2022-07-31 23:58:12 Test Item Value Reference Range Interpretation Comments NA (test code = 140 mmol/L 135-145 1706011892) K (test code = 3.6 mmol/L 3.5-5.0 3099665669) CL (test code = 106 mmol/L 98-108 3717259497) CO2 TOTAL (test code = 21 mmol/L 23-31 L 6054112669) AGAP (test code = 13 2-16 7642153255) BUN (test code = 8 mg/dL 7-23 8278770666) GLUCOSE (test code = 90 mg/dL 70-110 3602328314) CREATININE (test code = 0.90 mg/dL 0.50-1.04 5378035225) TOTAL BILI (test code = 0.5 mg/dL 0.1-1.5 8792847303) CALCIUM (test code = 9.0 mg/dL 8.6-10.6 1010723429) T PROTEIN (test code = 7.8 g/dL 6.3-8.2 0759396847) ALBUMIN (test code = 4.6 g/dL 3.5-5.0 0642668019) ALK PHOS (test code = 63 U/L 34-122 7131910049) ALTv (test code = 23 U/L 5-35 2-6) AST(SGOT) (test code = 27 U/L 13-40 6255338105) eGFR (test code = 75.1 mL/min/1.73m2 1390342211) WESLEY (test code = WESLEY) Association of [...] tests). Lab Interpretation Abnormal (test code = 93993-6) [facility] 23:57:32 Test Item Value Reference Range Interpretation Comments LIPASE (test code = 4126772842) 55 U/L 0-220 Lab Interpretation (test code = Normal 45335-9) [facility] WITH [id number] 23:47:31 Test Item Value Reference Range Interpretation [...] RDW-SD (test code = 42.5 fL 39.0-49.9 68549-7) RDW-CV (test code = 13.0 % 12.0-15.5 788-0) PLT (test code = 339 See_Comment [Automated 777-3) message] The sy stem which generated this result transmitted reference range : 166 - 358 10*3/ ?L. The reference r david was not used to interpret this result as normal/abnormal . MPV (test code = 9.4 fL 9.5-12.9 L 08150-9) NRBC/100 WBC (test 0.0 See_Comment [Automat ed code = 6250807605) message] The system which generated this result transmitted reference range : 0.0 - 10.0 /100 WBCs. The refer ence range was not u sed to interpret th is result as normal/abnormal . NRBC x10^3 (test code See_Comment [Auto mated = 3273595095) message] The s ystem which generated this result transmitted reference range : 10*3/?L. The reference range was not used to interpret this result as normal/abnormal . GRAN MAT (NEUT) % 51.2 % (test code = 770-8) IMM GRAN % (test code 0.20 % = 9283675276) LYMPH % (test code = 36.5 % 736-9) MONO % (test code = 5.7 % 5905-5) EOS % (test code = 5.9 % 713-8) BASO % (test code = 0.5 % 706-2) GRAN MAT x10^3(ANC) 2.89 10*3/uL 1.88-7.09 (test code = 6909793558) IMM GRAN x10^3 (test 0.00-0.06 code = 0968401062) LYMPH x10^3 (test code 2.06 10*3/uL 1.32-3.29 = 731-0) MONO x10^3 (test code 0.32 10*3/uL 0.33-0.92 L = 742-7) EOS x10^3 (test code = 0.33 10*3/uL 0.03-0.39 711-2) BASO x10^3 (test code 0.03 10*3/uL 0.01-0.07 = 704-7) Lab Interpretation Abnormal (test code = 55679-3) [facility] [id number] 16:14:38 Test Item Value Reference Range Interpretation Comments POCT Molecular Strep (test code = Negative Negative 72596-7) Lab Interpretation (test code = Normal 29172-9) [facility]OL[facility] PANEL ([id number])2022-05-05 19:35:37 Test Item Value Reference Range Interpretation Comments NA (test code = 139 mmol/L 135-145 6961610171) K (test code = 4.4 mmol/L 3.5-5.0 2852853482) CL (test code = 104 mmol/L 98-108 1942866382) CO2 TOTAL (test code = 22 mmol/L 23-31 L 2260160721) AGAP (test code = 2-16 2328315721) BUN (test code = 11 mg/dL 7-23 6814216241) GLUCOSE (test code = 95 mg/dL 70-110 0563050810) CREATININE (test code = 0.71 mg/dL 0.50-1.04 8848719767) TOTAL BILI (test code = 0.4 mg/dL 0.1-1.6 5053980742) CALCIUM (test code = 9.1 mg/dL 8.6-10.6 1578903603) T PROTEIN (test code = 7.9 g/dL 6.3-8.2 1158780122) ALBUMIN (test code = 4.7 g/dL 3.5-5.0 1971859221) ALK PHOS (test code = 114 U/L 34-122 6055902970) ALTv (test code = 21 U/L 5-35 1742-6) AST(SGOT) (test code = 21 U/L 13-40 4560604874) eGFR (test code = mL/min/1.73m2 5629301686) WESLEY (test code = WESLEY) Association of [...] tests). Lab Interpretation Abnormal (test code = 76810-1) [facility] WITH [id number] 19:25:37 Test Item Value Reference Range Interpretation [...] RDW-SD (test code = 41.7 fL 39.0-49.9 54669-3) RDW-CV (test code = 12.7 % 12.0-15.5 788-0) PLT (test code = See_Comment H [Automated 777-3) message] The sy stem which generated this result transmitted reference range : 166 - 358 10*3/ ?L. The reference r david was not used to interpret this result as normal/abnormal . MPV (test code = 8.8 fL 9.5-12.9 L 56536-9) NRBC/100 WBC (test See_Comment [Automat ed code = 6841219912) message] The system which generated this result transmitted reference range : 0.0 - 10.0 /100 WBCs. The refer ence range was not u sed to interpret th is result as normal/abnormal . NRBC x10^3 (test code See_Comment [Auto mated = 0617737383) message] The s ystem which generated this result transmitted reference range : 10*3/?L. The reference range was not used to interpret this result as normal/abnormal . GRAN MAT (NEUT) % 56.1 % (test code = 770-8) IMM GRAN % (test code 0.40 % = 6805150936) LYMPH % (test code = 29.9 % 736-9) MONO % (test code = 5.4 % 5905-5) EOS % (test code = 7.8 % 713-8) BASO % (test code = 0.4 % 706-2) GRAN MAT x10^3(ANC) 3.75 10*3/uL 1.88-7.09 (test code = 7613725723) IMM GRAN x10^3 (test 0.03 10*3/uL 0.00-0.06 code = 4512761716) LYMPH x10^3 (test code 2.00 10*3/uL 1.32-3.29 = 731-0) MONO x10^3 (test code 0.36 10*3/uL 0.33-0.92 = 742-7) EOS x10^3 (test code = 0.52 10*3/uL 0.03-0.39 H 711-2) BASO x10^3 (test code 0.03 10*3/uL 0.01-0.07 = 704-7) Lab Interpretation Abnormal (test code = 65644-3) [facility] [id number] 19:00:00 Test Item Value Reference Range Interpretation Comments POCT PREG (test code = 1605) negative On board controls acceptable with present C Line (test code = 3574) POCT PREG LOT # (test code = 3575) [id number] POCT PREG TEST DATE (test 08-11-2023 code = 3576) Lab Interpretation (test code = Normal 16249-7) [facility] WITH [id number] 15:21:11 Test Item Value Reference Range Interpretation Comments WBC (test code = See_Comment [Automated 6094-2) message] The sy stem which generated this result transmitted reference range : 4.30 - 11.10 10*3/?L. The reference range was not used to interpret this result as normal/abnormal . RBC (test code = See_Comment [Automated 830-8) message] The sy stem which generated this [...] RDW-SD (test code = 42.6 fL 39.0-49.9 79577-3) RDW-CV (test code = 12.9 % 12.0-15.5 788-0) PLT (test code = See_Comment H [Automated 777-3) message] The sy stem which generated this result transmitted reference range : 166 - 358 10*3/ ?L. The reference r david was not used to interpret this result as normal/abnormal . MPV (test code = 9.1 fL 9.5-12.9 L 16833-4) NRBC/100 WBC (test See_Comment [Automat ed code = 4274592606) message] The system which generated this result transmitted reference range : 0.0 - 10.0 /100 WBCs. The refer ence range was not u sed to interpret th is result as normal/abnormal . NRBC x10^3 (test code See_Comment [Auto mated = 9504191812) message] The s ystem which generated this result transmitted reference range : 10*3/?L. The reference range was not used to interpret this result as normal/abnormal . GRAN MAT (NEUT) % 56.8 % (test code = 770-8) IMM GRAN % (test code 0.30 % = 1214051877) LYMPH % (test code = 29.5 % 736-9) MONO % (test code = 4.3 % 5905-5) EOS % (test code = 8.3 % 713-8) BASO % (test code = 0.8 % 706-2) GRAN MAT x10^3(ANC) 3.57 10*3/uL 1.88-7.09 (test code = 9192452519) IMM GRAN x10^3 (test 0.00-0.06 code = [id number]) LYMPH x10^3 (test code 1.85 10*3/uL 1.32-3.29 = 731-0) MONO x10^3 (test code 0.27 10*3/uL 0.33-0.92 L = 742-7) EOS x10^3 (test code = 0.52 10*3/uL 0.03-0.39 H 711-2) BASO x10^3 (test code 0.05 10*3/uL 0.01-0.07 = 704-7) Lab Interpretation Abnormal (test code = 46408-8) [facility]. METABOLIC PANEL (03260)2022-04-26 15:12:13 Test Item Value Reference Range Interpretation Comments NA (test code = 141 mmol/L 135-145 [id number]) K (test code = 3.4 mmol/L 3.5-5.0 L 9821545875) CL (test code = 104 mmol/L 98-108 3587998846) CO2 TOTAL (test code = 23 mmol/L 23-31 5002756765) AGAP (test code = 2-16 5252264876) BUN (test code = 9 mg/dL 7-23 1367527562) GLUCOSE (test code = 101 mg/dL 70-110 4226766803) CREATININE (test code = 0.82 mg/dL 0.50-1.04 8079100146) TOTAL BILI (test code = 0.7 mg/dL 0.1-1.2 0953035488) CALCIUM (test code = 9.3 mg/dL 8.6-10.6 4356156578) T PROTEIN (test code = 8.1 g/dL 6.3-8.2 5776266510) ALBUMIN (test code = 4.7 g/dL 3.5-5.0 1654802779) ALK PHOS (test code = 108 U/L 34-122 4405421755) ALTv (test code = 24 U/L 5-35 1742-6) AST(SGOT) (test code = 49 U/L 13-40 H 1024776006) eGFR (test code = mL/min/1.73m2 7626354024) WESLEY (test code = WESLEY) Association of [...] tests). Lab Interpretation Abnormal (test code = 11765-7) [facility] [id number] 14:45:00 Test Item Value Reference Range Interpretation Comments POCT PREG (test code = 1605) negative On board controls acceptable with present C Line (test code = 3574) POCT PREG LOT # (test code = 3575) [id number] POCT PREG TEST DATE (test 08/11/2023 code = 3576) Lab Interpretation (test code = Normal 45333-0) [facility] [id number] 01:22:00 Test Item Value Reference Range Interpretation Comments POCT PREG (test code = 1605) Negative On board controls acceptable with Present C Line (test code = 3574) POCT PREG LOT # (test code = 3575) [id number] POCT PREG TEST DATE (test 08-11-2023 code = 3576) Lab Interpretation (test code = Normal 96542-8) [facility] METABOLIC PANEL (NA, K, CL, CO2, GLUCOSE, BUN, CREATININE, CA)2022-04-07 23:01:10 Test Item Value Reference Range Interpretation Comments NA (test code = 138 mmol/L 135-145 7577806976) K (test code = 4.3 mmol/L 3.5-5.0 6590754798) CL (test code = 107 mmol/L 98-108 1133645448) CO2 TOTAL (test code = 20 mmol/L 23-31 L 5445434709) AGAP (test code = 2-16 4859636657) BUN (test code = 9 mg/dL 7-23 3348420983) GLUCOSE (test code = 204 mg/dL 70-110 H 9211483642) CREATININE (test code = 0.74 mg/dL 0.50-1.04 5223272723) CALCIUM (test code = 9.1 mg/dL 8.6-10.6 9225344351) eGFR (test code = mL/min/1.73m2 2668199501) WESLEY (test code = WESLEY) Association of [...] tests). Lab Interpretation Abnormal (test code = 11646-9) [facility] WITH [id number] 22:57:34 Test Item Value Reference Range Interpretation [...] RDW-SD (test code = 42.9 fL 39.0-49.9 62372-3) RDW-CV (test code = 13.4 % 12.0-15.5 788-0) PLT (test code = See_Comment H [Automated 777-3) message] The sy stem which generated this result transmitted reference range : 166 - 358 10*3/ ?L. The reference r david was not used to interpret this result as normal/abnormal . MPV (test code = 8.9 fL 9.5-12.9 L 66313-1) NRBC/100 WBC (test See_Comment [Automat ed code = 6796508093) message] The system which generated this result transmitted reference range : 0.0 - 10.0 /100 WBCs. The refer ence range was not u sed to interpret th is result as normal/abnormal . NRBC x10^3 (test code See_Comment [Auto mated = 6262712722) message] The s ystem which generated this result transmitted reference range : 10*3/?L. The reference range was not used to interpret this result as normal/abnormal . GRAN MAT (NEUT) % 88.7 % (test code = 770-8) IMM GRAN % (test code 0.70 % = 4906634570) LYMPH % (test code = 9.4 % 736-9) MONO % (test code = 0.9 % 5905-5) EOS % (test code = 0.1 % 713-8) BASO % (test code = 0.2 % 706-2) GRAN MAT x10^3(ANC) 7.81 10*3/uL 1.88-7.09 H (test code = 2442438160) IMM GRAN x10^3 (test 0.06 10*3/uL 0.00-0.06 code = 0441509326) LYMPH x10^3 (test code 0.83 10*3/uL 1.32-3.29 L = 731-0) MONO x10^3 (test code 0.08 10*3/uL 0.33-0.92 L = 742-7) EOS x10^3 (test code = 0.03-0.39 L 711-2) BASO x10^3 (test code 0.01-0.07 = 704-7) Lab Interpretation Abnormal (test code = 65108-1) [facility] [id number] 14:07:00 Test Item Value Reference Range Interpretation Comments POCT PREG (test code = 1605) negative On board controls acceptable with present C Line (test code = 3574) POCT PREG LOT # (test code = 3575) [id number] POCT PREG TEST DATE (test 08/11/2023 code = 3576) Lab Interpretation (test code = Normal 57949-7) [facility] [id number] 13:52:00 Test Item Value Reference Range Interpretation Comments POCT PREG (test code = 1605) negative On board controls acceptable with C present Line (test code = 3574) Lab Interpretation (test code = Normal 60076-7) [facility] [id number] 14:59:00 Test Item Value Reference Range Interpretation Comments POCT PREG (test code = 1605) negative On board controls acceptable with yes C Line (test code = 3574) POCT PREG LOT # (test code = 3575) [id number] POCT PREG TEST DATE (test 07/11/2023 code = 3576) Lab Interpretation (test code = Normal 70762-8) [facility]. METABOLIC PANEL (67166)2022 17:51:43 Test Item Value Reference Range Interpretation Comments NA (test code = 139 mmol/L 135-145 0332438360) K (test code = 4.1 mmol/L 3.5-5 0114705802) CL (test code = 104 mmol/L 98-108 6801226369) CO2 TOTAL (test code = 22 mmol/L 23-31 L 9797217436) AGAP (test code = 2-16 1187583897) BUN (test code = 7 mg/dL 7-23 8822509543) GLUCOSE (test code = 114 mg/dL 70-110 H 5028070102) CREATININE (test code = 0.69 mg/dL 0.5-1.04 2097255953) TOTAL BILI (test code = 0.4 mg/dL 0.1-1.7 3110689379) CALCIUM (test code = 9.7 mg/dL 8.6-10.6 7675929338) T PROTEIN (test code = 7.2 g/dL 6.3-8.2 4992293879) ALBUMIN (test code = 4.6 g/dL 3.5-5 3542392589) ALK PHOS (test code = 65 U/L 34-122 8630407912) ALTv (test code = 15 U/L 5-35 1742-6) AST(SGOT) (test code = 19 U/L 13-40 6547904274) eGFR (test code = mL/min/1.73m2 0928200742) WESLEY (test code = WESLEY) Association of [...] tests). Lab Interpretation Abnormal (test code = 02707-2) [facility] WITH [id number] 17:40:24 Test Item Value Reference Range Interpretation Comments WBC (test code = See_Comment [Automated 1237-2) message] The sy stem which generated this result transmitted reference range : 4.30 - 11.10 10*3/?L. The reference range was not used to interpret this result as normal/abnormal . RBC (test code = See_Comment [Automated 530-8) message] The sy stem which generated this [...] RDW-SD (test code = 43.1 fL 39-49.9 70780-7) RDW-CV (test code = 13.2 % 12-15.5 788-0) PLT (test code = See_Comment [Automated 777-3) message] The sy stem which generated this result transmitted reference range : 166 - 358 10*3/ ?L. The reference r david was not used to interpret this result as normal/abnormal . MPV (test code = 9.5 fL 9.5-12.9 92634-9) NRBC/100 WBC (test See_Comment [Automat ed code = 5390527157) message] The system which generated this result transmitted reference range : 0.0 - 10.0 /100 WBCs. The refer ence range was not u sed to interpret th is result as normal/abnormal . NRBC x10^3 (test code See_Comment [Auto mated = 0459058688) message] The s ystem which generated this result transmitted reference range : 10*3/?L. The reference range was not used to interpret this result as normal/abnormal . GRAN MAT (NEUT) % 57.8 % (test code = 770-8) IMM GRAN % (test code 0.20 % = 8223229574) LYMPH % (test code = 30.8 % 736-9) MONO % (test code = 5.1 % 5905-5) EOS % (test code = 5.6 % 713-8) BASO % (test code = 0.5 % 706-2) GRAN MAT x10^3(ANC) 3.61 10*3/uL 1.88-7.09 (test code = 8863833609) IMM GRAN x10^3 (test 0-0.06 code = 5971909858) LYMPH x10^3 (test code 1.92 10*3/uL 1.32-3.29 = 731-0) MONO x10^3 (test code 0.32 10*3/uL 0.33-0.92 L = 742-7) EOS x10^3 (test code = 0.35 10*3/uL 0.03-0.39 711-2) BASO x10^3 (test code 0.03 10*3/uL 0.01-0.07 = 704-7) Lab Interpretation Abnormal (test code = 84432-4) [facility] [id number] 17:27:00 Test Item Value Reference Range Interpretation Comments POCT PREG (test code = 1605) negative On board controls acceptable with present C Line (test code = 3574) POCT PREG LOT # (test code = 3575) [id number] POCT PREG TEST DATE (test code = 3576) Lab Interpretation (test code = Normal 95557-5) [facility] 12:45:21 Test Item Value Reference Range Interpretation Comments LIPASE (test code = 1938143534) 41 U/L 0-220 Lab Interpretation (test code = Normal 11429-3) [facility] [id number] 10:57:00 Test Item Value Reference Range Interpretation Comments POCT PREG (test code = 1605) Negative On board controls acceptable with Present C Line (test code = 3574) POCT PREG LOT # (test code = 3575) [id number] POCT PREG TEST DATE (test 03/12/2023 code = 3576) Lab Interpretation (test code = Normal 79180-3) [facility] (NA, K, CL, CO2, GLUCOSE, BUN, CREATININE, CA)2022-01-18 10:56:51 Test Item Value Reference Range Interpretation Comments NA (test code = 137 mmol/L 135-145 0658263652) K (test code = 4.6 mmol/L 3.5-5 Slight 2259150381) hemolysis CL (test code = 108 mmol/L 98-108 4736416119) CO2 TOTAL (test code 22 mmol/L 23-31 L = 1172816039) AGAP (test code = 2-16 1286324131) BUN (test code = 11 mg/dL 7-23 Slight 3835227443) hemolysis GLUCOSE (test code = 83 mg/dL 70-110 6246492406) CREATININE (test code 0.68 mg/dL 0.5-1.04 = 4948026385) CALCIUM (test code = 8.8 mg/dL 8.6-10.6 2607768955) eGFR (test code = mL/min/1.73m2 8150462149) WESLEY (test code = WESLEY) Association of [...] tests). Lab Interpretation Abnormal (test code = 10332-4) [facility] (47601[facility] (ALB,T.PRO,BILI T,BU/BC,ALT,AST,ALK PHOS)2022-01-18 10:56:51 Test Item Value Reference Range Interpretation Comments TOTAL BILI (test code = 3906765469) 0.6 mg/dL 0.1-1.1 BILI UNCON (test code = 2138606822) 0.1 mg/dL 0.1-1.1 BILI CONJ (test code = 8877385932) 0.0 mg/dL 0-0.3 T PROTEIN (test code = 1000799883) 8.6 g/dL 6.3-8.2 H ALBUMIN (test code = 6823551135) 5.1 g/dL 3.5-5 H ALK PHOS (test code = 9229390340) 79 U/L 34-122 ALTv (test code = 1742-6) 117 U/L 5-35 H AST(SGOT) (test code = 6791289392) 163 U/L 13-40 H Lab Interpretation (test code = Abnormal 39820-2) [facility], [id number] 10:54:25 Test Item Value Reference Range Interpretation Comments PREG SERUM (test code Negative = 7508571415) WESLEY (test code = WESLEY) Less than 10 IU/L. ?If low titer or ectopic is suspected, resubmit specimen in 48-72 hours. [facility] WITH [id number] 10:40:49 Test Item Value Reference Range Interpretation Comments WBC (test code = See_Comment [Automated 0471-2) message] The sy stem which generated this result transmitted reference range : 4.30 - 11.10 10*3/?L. The reference range was not used to interpret this result as normal/abnormal . RBC (test code = See_Comment [Automated 488-8) message] The sy stem which generated this [...] RDW-SD (test code = 45.3 fL 39-49.9 82158-8) RDW-CV (test code = 14.5 % 12-15.5 788-0) PLT (test code = See_Comment [Automated 375-3) message] The sy stem which generated this result transmitted reference range : 166 - 358 10*3/ ?L. The reference r david was not used to interpret this result as normal/abnormal . MPV (test code = 9.5 fL 9.5-12.9 64341-9) NRBC/100 WBC (test See_Comment [Automat ed code = 4987830546) message] The system which generated this result transmitted reference range : 0.0 - 10.0 /100 WBCs. The refer ence range was not u sed to interpret th is result as normal/abnormal . NRBC x10^3 (test code See_Comment [Auto mated = 4702224555) message] The s ystem which generated this result transmitted reference range : 10*3/?L. The reference range was not used to interpret this result as normal/abnormal . GRAN MAT (NEUT) % 47.6 % (test code = 770-8) IMM GRAN % (test code 0.60 % = 4531478736) LYMPH % (test code = 39.9 % 736-9) MONO % (test code = 5.9 % 5905-5) EOS % (test code = 5.3 % 713-8) BASO % (test code = 0.7 % 706-2) GRAN MAT x10^3(ANC) 4.45 10*3/uL 1.88-7.09 (test code = 1571847695) IMM GRAN x10^3 (test 0.06 10*3/uL 0-0.06 code = 0134608019) LYMPH x10^3 (test code 3.74 10*3/uL 1.32-3.29 H = 731-0) MONO x10^3 (test code 0.55 10*3/uL 0.33-0.92 = 742-7) EOS x10^3 (test code = 0.50 10*3/uL 0.03-0.39 H 711-2) BASO x10^3 (test code 0.07 10*3/uL 0.01-0.07 = 704-7) Lab Interpretation Abnormal (test code = 70255-1) [facility] [id number] 18:31:00 Test Item Value Reference Range Interpretation Comments POCT PREG (test code = 1605) Negative On board controls acceptable with C Yes Line (test code = 3574) POCT PREG LOT # (test code = 3575) POCT PREG TEST DATE (test code = 3576) [facility] W/O SPECIFIC [id number] 18:31:00 Test Item Value Reference Range Interpretation [...] - Negative [facility] Notes Date/Time Note Provider Source 2022-12-03 Formatting of this note might be differe nt from the original. Blayne Silva RN [facility] 08:57:03-00:00 Patient has an appointment 12/12/22. Blayne Silva RN 12/03/2022 8:57 AM "
[2022-12-27] MEDS ORDERED: ONDANSETRON 4 MG/2 ML VIAL ONE (11:08)
[2022-12-27] MEDS ORDERED: MORPHINE 4 MG/ML SYR ONE (11:08)
[2022-12-27] MEDS ORDERED: NA CHLORIDE 0.9% 1,000 ML ONE (11:08)
[2022-12-27 11:14] LABS: Absolute Lymphocytes (CBC) 2.1 K/uL (0.7-4.9); Hematocrit 38.3 % (36.0-45.0); Lymphocytes % 28.2 % (15.3-44.8); MCV 84.3 fL (80-100); MPV 8.1 fL (7.6-11.3); Platelets 407 thou/uL (152-406); RBC Red Blood Cell Count 4.54 M/uL (3.86-4.86)
[2022-12-27 11:15] LABS: Urine Bacteria None Seen /HPF (<20); Urine Bilirubin 1+ (Negative); Urine Blood Trace (Negative); Urine Clarity Extremely Turbid (Clear); Urine Color Yellow (Yellow); Urine Glucose NEGATIVE (Negative); Urine Mucus 4+ /HPF (None Seen); Urine Protein 1+ (Negative); Urine Urobilinogen Normal (Normal)
[2022-12-27 11:19] LABS: Specific Gravity > 1.030 (1.005-1.030)
[2022-12-27 11:21] LABS: Specific Gravity > 1.030 (1.005-1.030)
[2022-12-27 11:36] LABS: Albumin 4.1 g/dL (3.4-5.0); Bilirubin Total 0.6 mg/dL (0.2-1.0); Potassium 3.6 mEq/L (3.5-5.1)
--- NOTE | 2022-12-27 11:47 | RAD REPORT ---
EXAM DESCRIPTION: RADChest Single View12/27/2022 11:35 am CLINICAL HISTORY: PAIN COMPARISON: Chest Single View dated 12/06/2022; Abdomen 1 View (KUB) dated 12/02/2022; Chest Pa And La t (2 Views) dated 11/17/2022; Chest Single View dated 10/23/2022 TECHNIQUE: Portable AP view of the chest. FINDINGS: The lungs are clear. No pneumothorax or effusion. The cardiomediastinal contours are unrem arkable. IMPRESSION: No acute cardiopulmonary process.
--- NOTE | 2022-12-27 12:16 | RAD REPORT ---
EXAM DESCRIPTION: CT - Head C Spine Cap W Con - 12/27/2022 11:54 am CLINICAL HISTORY: PAIN COMPARISON: Head C Spine Cap W Con dated 02/18/2022; Head C Spine Cap W Con dated 11/18/2021; Head C Spine Cap W Con dated 08/01/2021; Head C Spine Cap W Con dated 11/15/2020 TECHNIQUE: Head and cervical spine CT images were obtained without IV contrast. Chest, abdomen, and pelvis CT images were obtained following intravenous administration of 100 mL Isovue-300. Multiplanar reformats were generated and reviewed. All CT scans are performed using dose optimization technique as appropriate and may include automated exposure control or mA/KV adjustment according to patient size. FINDINGS: CT HEAD: No intracranial hemorrhage, mass effect, or edema. No evidence of acute territorial infarct. No midli ne shift or abnormal fluid collection. The ventricles are normal in caliber and configuration for age . Basal cisterns are patent. Mastoid aircells and paranasal sinuses are clear. No acute skull fractur e. CT CERVICAL SPINE: No acute cervical spine fracture or subluxation. Vertebral body heights are well maintained. Facet lea ints are normal in alignment. No hyperattenuating canal hematoma. Prevertebral and paraspinous soft t issues are unremarkable. CT CHEST: No pneumothorax, pulmonary contusion or pleural fluid collection. No mediastinal hematoma and the aor ta and pulmonary arteries are unremarkable. No chest will mass or abnormal axillary finding. No displ aced rib fracture or other significant bony finding. CT ABDOMEN/ PELVIS: No evidence of traumatic injury to solid abdominal viscera. Gallbladder was surgically removed. Ill-d efined 3.8 x 3.0 cm collection in the gallbladder bed, suggests a seroma. No bowel injury or signific ant finding. No free air, free fluid or abnormal fat stranding. Right ovarian cyst or recently ruptur ed follicle. No urinary bladder abnormality. No significant bony finding. IMPRESSION: No acute traumatic findings. Sequelae of cholecystectomy with a lobulated fluid collection in the gallbladder bed as above, may re late to a postoperative seroma.
--- NOTE | 2022-12-27 12:33 | EDPHYS ---
Physician Documentation [facility] Name: Natanael Dyson Age: 27 yrs Sex: Female : 1995 Arrival Date: 12/27/2022 Time: 10:46 Bed 7 Private MD: ED Physician Justin Estrella HPI: 12/27 11:00 This 27 yrs old Female presents to ER via EMS with complaints of fall on [facility] stairs. 11:00 Trauma demographics: County: The injury occurred in [place]. Mechanism of injury: [facility] Fall:. Associated injuries: The patient sustained injury to the chest, injury to the abdomen, specifically the posterior aspect of left lateral abdomen, anterior aspect of left lateral abdomen, left upper quadrant and left lower quadrant, contusion, tenderness. Onset: The symptoms/episode began/occurred just prior to arrival. The patient presents with abdominal pain in the upper abdomen, in the lower abdomen, in the left upper quadrant, in the left lower quadrant. Onset: The symptoms/episode began/occurred just prior to arrival. The symptoms do not radiate. The patient or guardian reports chest pain that is located primarily in the anterior chest wall, left clavicle, anterior aspect of left upper chest, left lateral posterior chest, left lateral anterior chest and left breast. The chest pain is described as aching. Modifying factors: The symptoms are alleviated by remaining still, the symptoms are aggravated by breathing, cough, movement. Severity of pain: At its worst the pain was moderate in the emergency department the pain is unchanged. Historical: - Allergies: 10:50 Reglan; ap3 10:50 Toradol; ap3 - PMHx: 10:50 Anxiety; depressive disorder; Kidney stone; ap3 - PSHx: 10:50 Cholecystectomy; Ligation of fallopian tube; ap3 - Family history:: not pertinent. - Social history:: Smoking status: unknown. ROS: 11:00 Constitutional: Negative for fever, chills, and weight loss, Eyes: Negative for injury, rudolph pain, redness, and discharge, ENT: Negative for injury, pain, and discharge, Neck: Negative for injury, pain, and swelling, Cardiovascular: Negative for chest pain, palpitations, and edema, Abdomen/GI: Negative for abdominal pain, nausea, vomiting, diarrhea, and constipation, : Negative for injury, bleeding, discharge, and swelling, MS/Extremity: Negative for injury and deformity, Skin: Negative for injury, rash, and discoloration, Neuro: Negative for headache, weakness, numbness, tingling, and seizure, Psych: Negative for depression, anxiety, suicide ideation, homicidal ideation, and hallucinations, Allergy/Immunology: Negative for hives, rash, and allergies, Endocrine: Negative for neck swelling, polydipsia, polyuria, polyphagia, and marked weight changes, Hematologic/Lymphatic: Negative for swollen nodes, abnormal bleeding, and unusual bruising. 11:00 Respiratory: Positive for cough, with no reported sputum. 11:00 Abdomen/GI: Positive for abdominal pain, of the posterior aspect of left lateral abdomen, anterior aspect of left lateral abdomen, left upper quadrant and left lower quadrant. 11:00 Back: Positive for decreased range of motion, pain with movement, of the left low back and left mid back. Exam: 11:00 Constitutional: This is a well developed, well nourished patient who is awake, alert, rudolph and in no acute distress. Head/Face: Normocephalic, atraumatic. Eyes: Pupils equal round and reactive to light, extra-ocular motions intact. Lids and lashes normal. Conjunctiva and sclera are non-icteric and not injected. Cornea within normal limits. Periorbital areas with no swelling, redness, or edema. ENT: Nares patent. No nasal discharge, no septal abnormalities noted. Tympanic membranes are normal and external auditory canals are clear. Oropharynx with no redness, swelling, or masses, exudates, or evidence of obstruction, uvula midline. Mucous membranes moist. Neck: Trachea midline, no thyromegaly or masses palpated, and no cervical lymphadenopathy. Supple, full range of motion without nuchal rigidity, or vertebral point tenderness. No Meningismus. Chest/axilla: Normal chest wall appearance and motion. Nontender with no deformity. No lesions are appreciated. Back: No spinal tenderness. No costovertebral tenderness. Full range of motion. Skin: Warm, dry with normal turgor. Normal color with no rashes, no lesions, and no evidence of cellulitis. MS/ Extremity: Pulses equal, no cyanosis. Neurovascular intact. Full, normal range of motion. Neuro: Awake and alert, GCS 15, oriented to person, place, time, and situation. Cranial nerves II-XII grossly intact. Motor strength 5/5 in all extremities. Sensory grossly intact. Cerebellar exam normal. Normal gait. Psych: Awake, alert, with orientation to person, place and time. Behavior, mood, and affect are within normal limits. 11:00 Cardiovascular: Rate: tachycardic, actual rate is 136 bpm, Rhythm: regular, Pulses: Pulses are 4+ in bilateral radial, brachial, femoral, popliteal, posterior tibial and and dorsalis pedis arteries.. Heart sounds: normal, Edema: is not appreciated, JVD: is not appreciated. 11:00 Respiratory: the patient does not display signs of respiratory distress, Respirations: normal, Breath sounds: are clear throughout, Respiratory rate: 18 Vital Signs: 10:48 BP 142 / 99; Pulse 136; Resp 19; Temp 98.7; Pulse Ox 98% on R/A; Pain 10/10; ap3 11:49 BP 136 / 92; Pulse 115; Pulse Ox 98% on R/A; ap3 12:38 BP 124 / 86; Pulse 99; Resp 18; Pulse Ox 100% on R/A; ld1 10:48 Pain Scale: Adult ap3 MDM: 10:52 Patient medically screened. rudolph 11:04 Differential diagnosis: intra-abdominal injury, closed head injury, cardiac contusion, rudolph gastritis. Data reviewed: vital signs, nurses notes, EMS record, lab test result(s), radiologic studies, CT scan, plain films. Consideration of Admission/Observation Escalation of care including admission/observation considered. I considered the following discharge prescriptions or medication management in the emergency department Medications were administered in the Emergency Department. See MAR. Test considered but Not performed: Ultrasound no abd usg. Care significantly affected by the following chronic conditions: anxiety, depression, kidney stone. Counseling: I had a detailed discussion with the patient and/or guardian regarding the historical points, exam findings, and any diagnostic results supporting the discharge/admit diagnosis, lab results, radiology results. 12/27 10:54 Order name: CBC with Diff; Complete Time: 11:29 [facility] 12/27 10:54 Order name: Comprehensive Metabolic Panel; Complete Time: 11:39 [facility] 12/27 10:54 Order name: Lipase; Complete Time: 11:39 [facility] 12/27 10:54 Order name: Urinalysis w/ reflexes; Complete Time: 11:29 [facility] 12/27 10:54 Order name: PREGU; Complete Time: 11:29 [facility] 12/27 10:54 Order name: Chest Single View XRAY; Complete Time: 12:15 [facility] 12/27 10:54 Order name: CT Traumagram (Head C Spine CAP W Con); Complete Time: 12:24 [facility] 12/27 10:56 Order name: INCENTIVE SPIROMETRY rudolph Administered Medications: 11:07 Drug: NS 0.9% IV 1000 ml Route: IV; Rate: 1 bolus; Site: right antecubital; ap3 11:07 Drug: morphine IVP or IV 4 mg Route: IVP; Infused Over: 4 mins; Site: right antecubital;ap3 11:07 Drug: Ondansetron IVP 4 mg Route: IVP; Site: right antecubital; ap3 Disposition Summary: 12/27/22 12:32 Discharge Ordered Location: Home rudolph Problem: new rudolph Symptoms: have improved rudolph Condition: Stable rudolph Diagnosis - Fall (on) (from) other stairs and steps - 6 STEPS rudolph - Strain of muscle and tendon of back wall of thorax rudolph - Strain of muscle and tendon of front wall of thorax rudolph - Contusion of front wall of thorax rudolph - Contusion of left back wall of thorax rudolph Followup: rudolph - With: Private Physician - When: 2 - 3 days - Reason: Recheck today's complaints, Continuance of care, Re-evaluation by your physician Followup: rudolph - With: - When: 2 - 3 days - Reason: Recheck today's complaints, Re-evaluation by your physician Discharge Instructions: - Discharge Summary Sheet [facility] - Contusion rudolph - Chest Contusion, Adult rudolph - Fall Prevention in the Home, Adult rudolph - How to Use an Incentive Spirometer rudolph - Chest Contusion, Adult, [id number] rudolph - Fall Prevention in the Home, Adult, [id number] rudolph - Pulmonary Contusion, Adult rudolph - Blunt Chest Trauma [facility] - Incentive Spirometer Record [facility] Forms: - Medication Reconciliation Form [facility] - Thank You Letter [facility] - Antibiotic Education [facility] - Prescription Opioid Use [facility] - Patient Portal Instructions [facility] - Leadership Thank You Letter [facility] Prescriptions: - acetaminophen-codeine 300-30 mg Oral tablet - take 2 tablet by ORAL route 4 times per day; 20 tablet; Refills: 0, Product rudolph Selection Permitted - diclofenac sodium 50 mg Oral tablet, delayed release (enteric coated) - take 1 tablet by ORAL route 3 times per day; 21 tablet; Refills: 0, Product rudolph Selection Permitted - Cyclobenzaprine 5 mg Oral Tablet - take 1 tablet by ORAL route 3 times per day As needed; 15 tablet; Refills: 0, rudolph Product Selection Permitted Signatures: Dispatcher [employer] Justin Pinto, Ileana Martinez MD, cha, RN RN ap3
--- NOTE | 2022-12-27 12:33 | ER ---
Nurse's Notes [facility] Name: Natanael Dyson Age: 27 yrs Sex: Female : 1995 Arrival Date: 12/27/2022 Time: 10:46 Bed 7 Private MD: Diagnosis: Fall (on) (from) other stairs and steps-6 STEPS;Strain of muscle and tendon of back wall of thorax;Strain of muscle and tendon of front wall of thorax;Contusion of front wall of thorax;Contusion of left back wall of thorax Presentation: 12/27 10:48 Chief complaint: Patient states: she was carrying laundry today and fell on her left ap3 side. patient is complaining of left upper quadrant pain and is worried due to her having gallbladder sx approx 3 weeks ago. patient currently rates pain as a 10/10 on the pain scale. Coronavirus screen: At this time, the client does not indicate any symptoms associated with coronavirus-19. Ebola Screen: No symptoms or risks identified at this time. Initial Sepsis Screen: Does the patient meet any 2 criteria? HR > 90 bpm. Does the patient have a suspected source of infection? No. Patient's initial sepsis screen is negative. Risk Assessment: Do you want to hurt yourself or someone else? Patient reports no desire to harm self or others. Onset of symptoms was December 27, 2022. Care prior to arrival: Medication(s) given: zofran 4 mg, 25 fent x's 3 doses IV initiated. 20 GA, in the right antecubital area. 10:48 Method Of Arrival: EMS: [facility] ap3 10:48 Acuity: THIERNO 3 ap3 Triage Assessment: 10:50 General: Appears uncomfortable, Behavior is cooperative, appropriate for age, restless. ap3 Pain: Complains of pain in left upper quadrant Pain currently is 10 out of 10 on a pain scale. Pain began suddenly. Neuro: Level of Consciousness is awake, alert, obeys commands, Oriented to person, place, time, situation. Cardiovascular: Patient's skin is warm and dry. Respiratory: Airway is patent Respiratory effort is even, unlabored, Respiratory pattern is regular, symmetrical. GI: Reports upper abdominal pain. Historical: - Allergies: 10:50 Reglan; ap3 10:50 Toradol; ap3 - PMHx: 10:50 Anxiety; depressive disorder; Kidney stone; ap3 - PSHx: 10:50 Cholecystectomy; Ligation of fallopian tube; ap3 - Family history:: not pertinent. - Social history:: Smoking status: unknown. Screenin:51 [facility] ED Fall Risk Assessment (Adult) History of falling in the last 3 months, ap3 including since admission Yes- single mechanical fall (1 pt) Confusion or Disorientation No (0 pts) Intoxicated or Sedated No (0 pts) Impaired Gait No (0 pts) Mobility Assist Device Used No (0 pt) Altered Elimination No (0 pt). Abuse screen: Denies threats or abuse. Nutritional screening: No deficits noted. Tuberculosis screening: No symptoms or risk factors identified. Assessment: 11:50 Reassessment: Patient and/or family updated on plan of care and expected duration. Pain ap3 level reassessed. Patient is alert, oriented x 3, equal unlabored respirations, skin warm/dry/pink. Vital Signs: 10:48 BP 142 / 99; Pulse 136; Resp 19; Temp 98.7; Pulse Ox 98% on R/A; Pain 10/10; ap3 11:49 BP 136 / 92; Pulse 115; Pulse Ox 98% on R/A; ap3 12:38 BP 124 / 86; Pulse 99; Resp 18; Pulse Ox 100% on R/A; ld1 10:48 Pain Scale: Adult ap3 ED Course: 10:48 Patient arrived in ED. ap3 10:48 Edmond Koo MD is Attending Physician. rt 10:50 Triage completed. ap3 10:52 Attending Physician role handed off by Edmond Koo MD rudolph 10:52 Justin Estrella MD is Attending Physician. rudolph 10:52 Ileana Negrete, ROSEY is Primary Nurse. ap3 10:52 Arm band placed on right wrist. ap3 10:52 Bed in low position. Call light in reach. Side rails up X2. Pulse ox on. NIBP on. ap3 10:52 Maintain EMS IV. Dressing intact. Good blood return noted. Site clean \T\ dry. Gauge \T\ ap 3 site: 20g right ac. 11:04 PREGU Sent. ld1 11:04 Urinalysis w/ reflexes Sent. ld1 11:04 Lipase Sent. ld1 11:04 Comprehensive Metabolic Panel Sent. ld1 11:04 CBC with Diff Sent. ld1 11:37 Chest Single View XRAY In Process Unspecified. EDMS 11:55 CT Traumagram (Head C Spine CAP W Con) In Process Unspecified. EDMS 12:32 Edgar Lora MD is Referral Physician. [facility] 12:39 No provider procedures requiring assistance completed. IV discontinued, intact, ld1 bleeding controlled, No redness/swelling at site. Administered Medications: 11:07 Drug: NS 0.9% IV 1000 ml Route: IV; Rate: 1 bolus; Site: right antecubital; ap3 11:07 Drug: morphine IVP or IV 4 mg Route: IVP; Infused Over: 4 mins; Site: right antecubital;ap3 11:07 Drug: Ondansetron IVP 4 mg Route: IVP; Site: right antecubital; ap3 Medication: 11:49 VIS not applicable for this client. ap3 Outcome: 12:32 Discharge ordered by MD. [facility] 12:39 Discharged to home ambulatory. ld1 12:39 Condition: stable 12:39 Discharge instructions given to patient, Instructed on discharge instructions, follow up and referral plans. medication usage, Demonstrated understanding of instructions, follow-up care, medications, Prescriptions given X 3. 12:39 Patient left the ED. ld1 Signatures: Dispatcher [employer] Justin Pinto MD MD cha Prokisch, Amanda, RN RN ap3 Kellie Dean RN RN ld1 Edmond Koo MD MD rt
[2022-12-27 13:05] VITALS: TEMP 98.7
[2022-12-27 13:07] VITALS: BP 124/86; O2SAT 100
== END 2022-12-27 12:39 | disposition home or self-care (01) ==
LOC: ER 10:46
DX: S29.012A Strain of muscle and tendon of back wall of thorax, initial encounter (principal); S29.011A Strain of muscle and tendon of front wall of thorax, initial encounter; S20.212A Contusion of left front wall of thorax, initial encounter; S20.222A Contusion of left back wall of thorax, initial encounter; W10.8XXA Fall (on) (from) other stairs and steps, initial encounter; R05.9 Cough, unspecified; Z88.5 Allergy status to narcotic agent; Z88.8 Allergy status to other drugs, medicaments and biological substances
CPT/HCPCS: 85025; 81001; 36415; 81025; 83690; 80053; 70450; 72125; 71260; 74177; 71045; 96375; 96374; 99284; Q9967; J2405; J7030

== ENCOUNTER 2022-12-29 07:15 | Emergency (ER) | payer OTHER ==
--- OUTSIDE RECORDS SUMMARY | 2022-12-29 07:34 | XMS REPORT | Continuity of Care Document ---
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 00:00: SEE-INSTRU [place],) 4 mg 00 CTIONS. Medica l tablets follow Branch package directions methylPREDN 2023-0 Yes [id number] Take by [facility] ISolone 2-11 mouth ity of (MEDROL, 00:00: SEE-INSTRU [place],) 4 mg 00 CTIONS. Medica l tablets follow Branch package directions methylPREDN 2023-0 Yes [id number] Take by [facility] ISolone 2-11 mouth ity of (MEDROL, 00:00: SEE-INSTRU [place],) 4 mg 00 CTIONS. Medica l tablets follow Branch package directions methylPREDN 2023-0 Yes [id number] Take by [facility] ISolone 2-11 mouth ity of (MEDROL, 00:00: SEE-INSTRU [place],) 4 mg 00 CTIONS. Medica l tablets follow Branch package directions methylPREDN 2023-0 Yes [id number] Take by [facility] ISolone 2-11 mouth ity of (MEDROL, 00:00: SEE-INSTRU [place],) 4 mg 00 CTIONS. Medica l tablets follow Branch package directions methylPREDN 2023-0 Yes [id number] Take by [facility] ISolone 2-11 mouth ity of (MEDROL, 00:00: SEE-INSTRU [place],) 4 mg 00 CTIONS. Medica l tablets follow Branch package directions methylPREDN 2023-0 Yes [id number] Take by [facility] ISolone 2-11 mouth ity of (MEDROL, 00:00: SEE-INSTRU [place],) 4 mg 00 CTIONS. Medica l tablets follow Branch package directions methylPREDN 2023-0 Yes [id number] Take by [facility] ISolone 2-11 mouth ity of (MEDROL, 00:00: SEE-INSTRU [place],) 4 mg 00 CTIONS. Medica l tablets follow Branch package directions methylPREDN 2023-0 Yes [id number] Take by [facility] ISolone 2-11 mouth ity of (MEDROL, 00:00: SEE-INSTRU [place],) 4 mg 00 CTIONS. Medica l tablets follow Branch package directions methylPREDN 2023-0 Yes [id number] Take by [facility] ISolone 2-11 mouth ity of (MEDROL, 00:00: SEE-INSTRU [place],) 4 mg 00 CTIONS. Medica l tablets follow Branch package directions methylPREDN Yes [id number] Take by [facility] ISolone 06-23 mouth ity of (MEDROL, 00:00: SEE-INSTRU [place]ELA,) 4 mg 00 CTIONS. Medica l tablets follow Branch package directions bromphenira 2022- No [id number] 5mL Take 5 mL Univers mine-pseudo 06-23 by mouth 4 i ty of ephedrine-D 00:00: 05:59 (four) [place] as M (BROMFED 00 :00 times Medical DM) 230-10 daily as Bran ch mg/5 mL needed for syrup Cold symptoms for up to 10 days. methocarbam 2022- No [id number] 750mg Take 1 [facility] oL 750 mg 06-23 [id number] tablet by it y of tablet 00:00: [...] [place] butalbital- 2021-05- No 1{tbl} 1 tablet, [facility] acetaminoph 07-06- Oral, ity of en-caff 20:15: 20:56 ONCE, 1 [place] (ESGIC) 00 :00 dose, On Medical 50-325-40 [...] No 4mg 4 mg, Slow Univers (ZOFRAN 205-05 IV Push, ity of (PF)) 19:15: 19:45 ONCE, 1 [place] injection 4 00 :00 dose, On Medi yessi mg Sat Branch 05/05/22 at 1315, [place] ketorolac 2021-05- No 30mg 30 mg, Unive rs (TORADOL) 205-05 Slow IV ity of injection 19:15: 19:44 Push, [place] 30 mg 00 :00 ONCE, 1 Medical dose, On Branch 05/05/22 at 1315, Routine butalbital- 2021-05 Yes [id number] 1{tbl} Take 1 [facility] acetaminoph 2-24 tablet by ity of en-caff 00:00: mouth [place] 50-325-40 00 every 4 Medical mg tablet (four) Branch hours as needed for Pain (scale 7-10). butalbital- 2021-05 Yes [id number] 1{tbl} Take 1 [facility] acetaminoph 2-24 tablet by ity of en-caff 00:00: mouth [place] 50-325-40 00 every 4 Medical mg tablet (four) Branch hours as needed for Pain (scale 7-10). butalbital- 2021-05 Yes [id number] 1{tbl} Take 1 [facility] acetaminoph 2-24 tablet by ity of en-caff 00:00: mouth [place] 50-325-40 00 every 4 Medical mg tablet (four) Branch hours as needed for Pain (scale 7-10). butalbital- 2021-05 Yes [id number] 1{tbl} Take 1 [facility] acetaminoph 2-24 tablet by ity of en-caff 00:00: mouth [place] 50-325-40 00 every 4 Medical mg tablet (four) Branch hours as needed for Pain (scale 7-10). butalbital- 2021-05 Yes [id number] 1{tbl} Take 1 [facility] acetaminoph 2-24 tablet by ity of en-caff 00:00: mouth [place] 50-325-40 00 every 4 Medical mg tablet (four) Branch hours as needed for Pain (scale 7-10). butalbital- 2021-05 Yes [id number] 1{tbl} Take 1 [facility] acetaminoph 2-24 tablet by ity of en-caff 00:00: mouth [place] 50-325-40 00 every 4 Medical mg tablet (four) Branch hours as needed for Pain (scale 7-10). butalbital- 2021-05 Yes [id number] 1{tbl} Take 1 [facility] acetaminoph 2-24 tablet by ity of en-caff 00:00: mouth [place] 50-325-40 00 every 4 Medical mg tablet (four) Branch hours as needed for Pain (scale 7-10). butalbital2021-05 Yes [id number] 1{tbl} Take 1 [facility] acetaminoph 2-24 tablet by ity of en-caff 00:00: mouth [place] 50-325-40 00 every 4 Medical mg tablet (four) Branch hours as needed for Pain (scale 7-10). butalbital2021-05 Yes [id number] 1{tbl} Take 1 [facility] acetaminoph 2-24 tablet by ity of en-caff 00:00: mouth [place] 50-325-40 00 every 4 Medical mg tablet (four) Branch hours as needed for Pain (scale 7-10). butalbital2021-05 Yes [id number] 1{tbl} Take 1 [facility] acetaminoph 2-24 tablet by ity of en-caff 00:00: mouth [place] 50-325-40 00 every 4 Medical mg tablet (four) Branch hours as needed for Pain (scale 7-10). butalbital2021-05 Yes [id number] 1{tbl} Take 1 [facility] acetaminoph 2-24 tablet by ity of en-caff 00:00: mouth [place] 50-325-40 00 every 4 Medical mg tablet (four) Branch hours as needed for Pain (scale 7-10). butalbital2021-05 Yes [id number] 1{tbl} Take 1 [facility] acetaminoph 2-24 tablet by ity of en-caff 00:00: mouth [place] 50-325-40 00 every 4 Medical mg tablet (four) Branch hours as needed for Pain (scale 7-10). butalbital2021-05 Yes [id number] 1{tbl} Take 1 [facility] acetaminoph 2-24 tablet by ity of en-caff 00:00: mouth [place] 50-325-40 00 every 4 Medical mg tablet (four) Branch hours as needed for Pain (scale 7-10). butalbital2021-05 Yes [id number] 1{tbl} Take 1 [facility] acetaminoph 2-24 tablet by ity of en-caff 00:00: mouth [place] 50-325-40 00 every 4 Medical mg tablet (four) Branch hours as needed for Pain (scale 7-10). butalbital2021-05 Yes [id number] 1{tbl} Take 1 [facility] acetaminoph 2-24 tablet by ity of en-caff 00:00: mouth [place] 50-325-40 00 every 4 Medical mg tablet (four) Branch hours as needed for Pain (scale 7-10). butalbital2021-05 Yes [id number] 1{tbl} Take 1 Univers acetaminoph 2-24 tablet [...] Medi yessi mg [facility] Branch 04/26/22 at 0845, Routine cephALEXin 2021-05 No [id number] 500mg Take 1 Univers (KEFLEX) 2-05-04 capsule by ity of 500 mg 00:00: [...] Nausea and Vomiting (N/V). galcanezuma 2021-05 Yes [id number] 120mg inject 120 Univers b-gnlm 1-28 mg under ity of prefilled 00:00: [place] (EMGALITY) 00 once every Med ical subcutaneou month. Branch s injection galcanezuma 2021-05 Yes [id number] 120mg inject 120 [facility] b-gnlm 1-28 mg under ity of prefilled 00:00: [place] (EMGALITY) 00 once every Med ical subcutaneou month. Branch s injection galcanezuma 2021-05 Yes [id number] 120mg inject 120 [facility] b-gnlm 1-28 mg under ity of prefilled 00:00: [place] (EMGALITY) 00 once every Med ical subcutaneou month. Branch s injection galcanezuma 2021-05 Yes [id number] 120mg inject 120 [facility] b-gnlm 1-28 mg under ity of prefilled 00:00: [place] (EMGALITY) 00 once every Med ical subcutaneou month. Branch s injection galcanezuma 2021-05 Yes [id number] 120mg inject 120 [facility] b-gnlm 1-28 mg under ity of prefilled 00:00: [place] (EMGALITY) 00 once every Med ical subcutaneou month. Branch s injection galcanezuma 2021-05 Yes [id number] 120mg inject 120 [facility] b-gnlm 1-28 mg under ity of prefilled 00:00: [place] (EMGALITY) 00 once every Med ical subcutaneou month. Branch s injection galcanezuma 2021-05 Yes [id number] 120mg inject 120 [facility] b-gnlm 1-28 mg under ity of prefilled 00:00: [place] (EMGALITY) 00 once every Med ical subcutaneou month. Branch s injection galcanezuma 2021-05 Yes [id number] 120mg inject 120 [facility] b-gnlm 1-28 mg under ity of prefilled 00:00: [place] (EMGALITY) 00 once every Med ical subcutaneou month. Branch s injection galcanezuma 2021-05 Yes [id number] 120mg inject 120 [facility] b-gnlm 1-28 mg under ity of prefilled 00:00: [place] (EMGALITY) 00 once every Med ical subcutaneou month. Branch s injection galcanezuma 2021-05 Yes [id number] 120mg inject 120 [facility] b-gnlm 1-28 mg under ity of prefilled 00:00: [place] (EMGALITY) 00 once every Med ical subcutaneou month. Branch s injection galcanezuma 2021-05 Yes [id number] 120mg inject 120 [facility] b-gnlm 1-28 mg under ity of prefilled 00:00: [place] (EMGALITY) 00 once every Med ical subcutaneou month. Branch s injection galcanezuma 2021-05 Yes [id number] 120mg inject 120 [facility] b-gnlm 1-28 mg under ity of prefilled 00:00: [place] (EMGALITY) 00 once every Med ical subcutaneou month. Branch s injection galcanezuma 2021-05 Yes [id number] 120mg inject 120 [facility] b-gnlm 1-28 mg under ity of prefilled 00:00: [place] (EMGALITY) 00 once every Med ical subcutaneou month. Branch s injection galcanezuma 2021-05 Yes [id number] 120mg inject 120 [facility] b-gnlm 1-28 mg under ity of prefilled 00:00: [place] (EMGALITY) 00 once every Med ical subcutaneou month. Branch s injection galcanezuma 2021-05 Yes [id number] 120mg inject 120 [facility] b-gnlm 1-28 mg under ity of prefilled 00:00: [place] (EMGALITY) 00 once every Med ical subcutaneou month. Branch s injection galcanezuma 2021-05 Yes [id number] 120mg inject 120 [facility] b-gnlm 1-28 mg under ity of prefilled 00:00: [place] (EMGALITY) 00 once every Med ical subcutaneou month. Branch s injection galcanezuma 2021-05 Yes [id number] 120mg inject 120 [facility] b-gnlm 1-28 mg under ity of prefilled 00:00: [place] (EMGALITY) 00 once every Med ical subcutaneou month. Branch s injection galcanezuma 2021-05 Yes [id number] 120mg inject 120 [facility] b-gnlm 1-28 mg under ity of prefilled 00:00: [place] (EMGALITY) 00 once every Med ical subcutaneou month. Branch s injection galcanezuma 2021-05 Yes [id number] 120mg inject 120 [facility] b-gnlm 1-28 mg under ity of prefilled 00:00: the [place] (EMGALITY) 00 once every Med ical subcutaneou month. Branch s injection galcanezuma 2021-05 Yes [id number] 120mg inject 120 [facility] b-gnlm 1-28 mg under ity of prefilled 00:00: [place] (EMGALITY) 00 once every Med ical subcutaneou month. Branch s injection galcanezuma 2021-05 Yes [id number] 120mg inject 120 [facility] b-gnlm 1-28 mg under ity of prefilled 00:00: [place] (EMGALITY) 00 once every Med ical subcutaneou month. Branch s injection galcanezuma 2021-05 Yes [id number] 120mg inject 120 [facility] b-gnlm 1-28 mg under ity of prefilled 00:00: [place] (EMGALITY) 00 once every Med ical subcutaneou month. Branch s injection galcanezuma 2021-05 Yes [id number] 120mg inject 120 [facility] b-gnlm 1-28 mg under ity of prefilled 00:00: [place] (EMGALITY) 00 once every Med ical subcutaneou month. Branch s injection galcanezuma 2021-05 Yes [id number] 120mg inject 120 [facility] b-gnlm 1-28 mg under ity of prefilled 00:00: [place] (EMGALITY) 00 once every Med ical subcutaneou month. Branch s injection galcanezuma 2021-05 Yes [id number] 120mg inject 120 [facility] b-gnlm 1-28 mg under ity of prefilled 00:00: [place] (EMGALITY) 00 once every Med ical subcutaneou month. Branch s injection galcanezuma 2021-05 Yes [id number] 120mg inject 120 [facility] b-gnlm 1-28 mg under ity of prefilled 00:00: [place] (EMGALITY) 00 once every Med ical subcutaneou month. Branch s injection galcanezuma 2021-05 Yes [id number] 120mg inject 120 [facility] b-gnlm 1-28 mg under ity of prefilled 00:00: [place] (EMGALITY) 00 once every Med ical subcutaneou month. Branch s injection galcanezuma 2021-05 Yes [id number] 120mg inject 120 [facility] b-gnlm 1-28 mg under ity of prefilled 00:00: [place] (EMGALITY) 00 once every Med ical subcutaneou month. Branch s injection galcanezuma 2021-05 Yes [id number] 120mg inject 120 [facility] b-gnlm 1-28 mg under ity of prefilled 00:00: [place] (EMGALITY) 00 once every Med ical subcutaneou month. Branch s injection galcanezuma 2021-05 Yes [id number] 120mg inject 120 [facility] b-gnlm 1-28 mg under ity of prefilled 00:00: the [place] (EMGALITY) 00 once every Med ical subcutaneou month. Branch s injection galcanezuma 2021-05 Yes [id number] 120mg inject 120 [facility] b-gnlm 1-28 mg under ity of prefilled 00:00: [place] (EMGALITY) 00 once every Med ical subcutaneou month. Branch s injection methocarbam 2021-05 Yes 1000mg 1,000 mg, Univers oL 06-08 Intravenou ity of (ROBAXIN) 04:00: s, Q8H, [place] injection 00 First dose Medi yessi 1,000 mg on Sat [place] 04/07/22 at 2200, Until Discontinu ed, Routine [...] Branch 03/24/22 at 0815, STAT ALBUTEROL 2021-05 Univers INHALE -12 12 ity of 07:58: 00:00 [place] 13 :00 Medical Branch rizatriptan 2021-05 Yes [id number] 10mg Take 1 Univers 10 mg 1-12 tablet by ity of tablet 00:00: mouth as [place] 00 needed for Medical Migraine. Branch May repeat in 2 hours if needed Butalbital- 2021-05 Yes [id number] 1{capsu Take 1 Univers Acetaminoph 1-12 le} [...] daily. Indication s: headache rizatriptan 2021-05 Yes [id number] 10mg Take 1 [facility] 10 mg 1-12 tablet by ity of tablet 00:00: mouth as [place] 00 needed for Medical Migraine. Branch May repeat in 2 hours if needed Butalbital- 2021-05 Yes [id number] 1{capsu Take 1 Univers Acetaminoph 1-12 le} [...] daily. Indication s: headache rizatriptan 2021-05 Yes [id number] 10mg Take 1 Univers 10 mg 1-12 tablet by ity of tablet 00:00: mouth as [place] 00 needed for Medical Migraine. Branch May repeat in 2 hours if needed Butalbital- 2021-05 Yes [id number] 1{capsu Take 1 Univers Acetaminoph 1-12 le} [...] daily. Indication s: headache rizatriptan 2021-05 Yes [id number] 10mg Take 1 [facility] 10 mg 1-12 tablet by ity of tablet 00:00: mouth as [place] 00 needed for Medical Migraine. Branch May repeat in 2 hours if needed Butalbital- 2021-05 Yes [id number] 1{capsu Take 1 Univers Acetaminoph 1-12 le} capsule by it y of en-Caff 00:00: mouth [place] (FIORICET) 00 every 6 Medica l 50-300-40 (six) Branch mg per hours as capsule needed for Other (headache) . rizatriptan 2021-05 Yes [id number] 10mg Take 1 Univers 10 mg 1-12 tablet by ity of tablet 00:00: mouth as [place] 00 needed for Medical Migraine. Branch May repeat in 2 hours if needed Butalbital- 2021-05 Yes [id number] 1{capsu Take 1 Univers Acetaminoph 1-12 le} capsule by it y of en-Caff 00:00: mouth [place] (FIORICET) 00 every 6 Medica l 50-300-40 (six) Branch mg per hours as capsule needed for Other (headache) . rizatriptan 2021-05 Yes [id number] 10mg Take 1 Univers 10 mg 1-12 tablet by ity of tablet 00:00: mouth as [place] 00 needed for Medical Migraine. Branch May repeat in 2 hours if needed Butalbital- 2021-05 Yes [id number] 1{capsu Take 1 Univers Acetaminoph 1-12 le} capsule by it y of en-Caff 00:00: mouth [place] (FIORICET) 00 every 6 Medica l 50-300-40 (six) Branch mg per hours as capsule needed for Other (headache) . rizatriptan 2021-05 Yes [id number] 10mg Take 1 Univers 10 mg 1-12 tablet by ity of tablet 00:00: mouth as [place] 00 needed for Medical Migraine. Branch May repeat in 2 hours if needed Butalbital- 2021-05 Yes [id number] 1{capsu Take 1 Univers Acetaminoph 1-12 le} capsule by it y of en-Caff 00:00: mouth [place] (FIORICET) 00 every 6 Medica l 50-300-40 (six) Branch mg per hours as capsule needed for Other (headache) . rizatriptan 2021-05 Yes [id number] 10mg Take 1 [facility] 10 mg 1-12 tablet by ity of tablet 00:00: mouth as [place] 00 needed for Medical Migraine. Branch May repeat in 2 hours if needed Butalbital- 2021-05 Yes [id number] 1{capsu Take 1 Univers Acetaminoph 1-12 le} capsule by it y of en-Caff 00:00: mouth [place] (FIORICET) 00 every 6 Medica l 50-300-40 (six) Branch mg per hours as capsule needed for Other (headache) . rizatriptan 2021-05 Yes [id number] 10mg Take 1 Univers 10 mg 1-12 tablet by ity of tablet 00:00: mouth as [place] 00 needed for Medical Migraine. Branch May repeat in 2 hours if needed Butalbital- 2021-05 Yes [id number] 1{capsu Take 1 Univers Acetaminoph 1-12 le} capsule by it y of en-Caff 00:00: mouth [place] (FIORICET) 00 every 6 Medica l 50-300-40 (six) Branch mg per hours as capsule needed for Other (headache) . rizatriptan 2021-05 Yes [id number] 10mg Take 1 Univers 10 mg 1-12 tablet by ity of tablet 00:00: mouth as [place] 00 needed for Medical Migraine. Branch May repeat in 2 hours if needed Butalbital- 2021-05 Yes [id number] 1{capsu Take 1 Univers Acetaminoph 1-12 le} capsule by it y of en-Caff 00:00: mouth [place] (FIORICET) 00 every 6 Medica l 50-300-40 (six) Branch mg per hours as capsule needed for Other (headache) . rizatriptan 2021-05 Yes [id number] 10mg Take 1 Univers 10 mg 1-12 tablet by ity of tablet 00:00: mouth as [place] 00 needed for Medical Migraine. Branch May repeat in 2 hours if needed Butalbital- 2021-05 Yes [id number] 1{capsu Take 1 Univers Acetaminoph 1-12 le} capsule by it y of en-Caff 00:00: mouth [place] (FIORICET) 00 every 6 Medica l 50-300-40 (six) Branch mg per hours as capsule needed for Other (headache) . rizatriptan 2021-05 Yes [id number] 10mg Take 1 Univers 10 mg 1-12 tablet by ity of tablet 00:00: mouth as [place] 00 needed for Medical Migraine. Branch May repeat in 2 hours if needed Butalbital- 2021-05 Yes [id number] 1{capsu Take 1 Univers Acetaminoph 1-12 le} capsule by it y of en-Caff 00:00: mouth [place] (FIORICET) 00 every 6 Medica l 50-300-40 (six) Branch mg per hours as capsule needed for Other (headache) . rizatriptan 2021-05 Yes [id number] 10mg Take 1 Univers 10 mg 1-12 tablet by ity of tablet 00:00: mouth as [place] 00 needed for Medical Migraine. Branch May repeat in 2 hours if needed Butalbital- 2021-05 Yes [id number] 1{capsu Take 1 Univers Acetaminoph 1-12 le} capsule by it y of en-Caff 00:00: mouth [place] (FIORICET) 00 every 6 Medica l 50-300-40 (six) Branch mg per hours as capsule needed for Other (headache) . rizatriptan 2021-05 Yes [id number] 10mg Take 1 Univers 10 mg 1-12 tablet by ity of tablet 00:00: mouth as [place] 00 needed for Medical Migraine. Branch May repeat in 2 hours if needed Butalbital- 2021-05 Yes [id number] 1{capsu Take 1 Univers Acetaminoph 1-12 le} capsule by it y of en-Caff 00:00: mouth [place] (FIORICET) 00 every 6 Medica l 50-300-40 (six) Branch mg per hours as capsule needed for Other (headache) . rizatriptan 2021-05 Yes [id number] 10mg Take 1 Univers 10 mg 1-12 tablet by ity of tablet 00:00: mouth as [place] 00 needed for Medical Migraine. Branch May repeat in 2 hours if needed Butalbital- 2021-05 Yes [id number] 1{capsu Take 1 Univers Acetaminoph 1-12 le} capsule by it y of en-Caff 00:00: mouth [place] (FIORICET) 00 every 6 Medica l 50-300-40 (six) Branch mg per hours as capsule needed for Other (headache) . rizatriptan 2021-05 Yes [id number] 10mg Take 1 Univers 10 mg 1-12 tablet by ity of tablet 00:00: mouth as [place] 00 needed for Medical Migraine. Branch May repeat in 2 hours if needed Butalbital- 2021-05 Yes [id number] 1{capsu Take 1 Univers Acetaminoph 1-12 le} capsule by it y of en-Caff 00:00: mouth [place] (FIORICET) 00 every 6 Medica l 50-300-40 (six) Branch mg per hours as capsule needed for Other (headache) . rizatriptan 2021-05 Yes [id number] 10mg Take 1 [facility] 10 mg 1-12 tablet by ity of tablet 00:00: mouth as [place] 00 needed for Medical Migraine. Branch May repeat in 2 hours if needed Butalbital- 2021-05 Yes [id number] 1{capsu Take 1 Univers Acetaminoph 1-12 le} capsule by it y of en-Caff 00:00: mouth [place] (FIORICET) 00 every 6 Medica l 50-300-40 (six) Branch mg per hours as capsule needed for Other (headache) . rizatriptan 2021-05 Yes [id number] 10mg Take 1 Univers 10 mg 1-12 tablet by ity of tablet 00:00: mouth as [place] 00 needed for Medical Migraine. Branch May repeat in 2 hours if needed Butalbital- 2021-05 Yes [id number] 1{capsu Take 1 Univers Acetaminoph 1-12 le} capsule by it y of en-Caff 00:00: mouth [place] (FIORICET) 00 every 6 Medica l 50-300-40 (six) Branch mg per hours as capsule needed for Other (headache) . rizatriptan 2021-05 Yes [id number] 10mg Take 1 Univers 10 mg 1-12 tablet by ity of tablet 00:00: mouth as [place] 00 needed for Medical Migraine. Branch May repeat in 2 hours if needed Butalbital- 2021-05 Yes [id number] 1{capsu Take 1 Univers Acetaminoph 1-12 le} capsule by it y of en-Caff 00:00: mouth [place] (FIORICET) 00 every 6 Medica l 50-300-40 (six) Branch mg per hours as capsule needed for Other (headache) . rizatriptan 2021-05 Yes [id number] 10mg Take 1 Univers 10 mg 1-12 tablet by ity of tablet 00:00: mouth as [place] 00 needed for Medical Migraine. Branch May repeat in 2 hours if needed Butalbital- 2021-05 Yes [id number] 1{capsu Take 1 Univers Acetaminoph 1-12 le} capsule by it y of en-Caff 00:00: mouth [place] (FIORICET) 00 every 6 Medica l 50-300-40 (six) Branch mg per hours as capsule needed for Other (headache) . rizatriptan 2021-05 Yes [id number] 10mg Take 1 [facility] 10 mg 1-12 tablet by ity of tablet 00:00: mouth as [place] 00 needed for Medical Migraine. Branch May repeat in 2 hours if needed Butalbital- 2021-05 Yes [id number] 1{capsu Take 1 Univers Acetaminoph 1-12 le} capsule by it y of en-Caff 00:00: mouth [place] (FIORICET) 00 every 6 Medica l 50-300-40 (six) Branch mg per hours as capsule needed for Other (headache) . rizatriptan 2021-05 Yes [id number] 10mg Take 1 Univers 10 mg 1-12 tablet by ity of tablet 00:00: mouth as [place] 00 needed for Medical Migraine. Branch May repeat in 2 hours if needed Butalbital- 2021-05 Yes [id number] 1{capsu Take 1 Univers Acetaminoph 1-12 le} capsule by it y of en-Caff 00:00: mouth [place] (FIORICET) 00 every 6 Medica l 50-300-40 (six) Branch mg per hours as capsule needed for Other (headache) . rizatriptan 2021-05 Yes [id number] 10mg Take 1 Univers 10 mg 1-12 tablet by ity of tablet 00:00: mouth as [place] 00 needed for Medical Migraine. Branch May repeat in 2 hours if needed Butalbital- 2021-05 Yes [id number] 1{capsu Take 1 Univers Acetaminoph 1-12 le} capsule by it y of en-Caff 00:00: mouth [place] (FIORICET) 00 every 6 Medica l 50-300-40 (six) Branch mg per hours as capsule needed for Other (headache) . rizatriptan 2021-05 Yes [id number] 10mg Take 1 Univers 10 mg 1-12 tablet by ity of tablet 00:00: mouth as [place] 00 needed for Medical Migraine. Branch May repeat in 2 hours if needed Butalbital- 2021-05 Yes [id number] 1{capsu Take 1 Univers Acetaminoph 1-12 le} capsule by it y of en-Caff 00:00: mouth [place] (FIORICET) 00 every 6 Medica l 50-300-40 (six) Branch mg per hours as capsule needed for Other (headache) . rizatriptan 2021-05 Yes [id number] 10mg Take 1 Univers 10 mg 1-12 tablet by ity of tablet 00:00: mouth as [place] 00 needed for Medical Migraine. Branch May repeat in 2 hours if needed Butalbital- 2021-05 Yes [id number] 1{capsu Take 1 [facility] Acetaminoph 1-12 le} capsule by it y of en-Caff 00:00: mouth [place] (FIORICET) 00 every 6 Medica l 50-300-40 (six) Branch mg per hours as capsule needed for Other (headache) . rizatriptan 2021-05 Yes [id number] 10mg Take 1 [facility] 10 mg 1-12 tablet by ity of tablet 00:00: mouth as [place] 00 needed for Medical Migraine. Branch May repeat in 2 hours if needed Butalbital- 2021-05 Yes [id number] 1{capsu Take 1 [facility] Acetaminoph 1-12 le} capsule by it y of en-Caff 00:00: mouth [place] (FIORICET) 00 every 6 Medica l 50-300-40 (six) Branch mg per hours as capsule needed for Other (headache) . rizatriptan 2021-05 Yes [id number] 10mg Take 1 [facility] 10 mg 1-12 tablet by ity of tablet 00:00: mouth as [place] 00 needed for Medical Migraine. Branch May repeat in 2 hours if needed Butalbital- 2021-05 Yes [id number] 1{capsu Take 1 [facility] Acetaminoph 1-12 le} capsule by it y of en-Caff 00:00: mouth [place] (FIORICET) 00 every 6 Medica l 50-300-40 (six) Branch mg per hours as capsule needed for Other (headache) . rizatriptan 2021-05 Yes [id number] 10mg Take 1 [facility] 10 mg 1-12 tablet by ity of tablet 00:00: mouth as [place] 00 needed for Medical Migraine. Branch May repeat in 2 hours if needed Butalbital- 2021-05 Yes [id number] 1{capsu Take 1 [facility] Acetaminoph 1-12 le} capsule by it y of en-Caff 00:00: mouth [place] (FIORICET) 00 every 6 Medica l 50-300-40 (six) Branch mg per hours as capsule needed for Other (headache) . rizatriptan 2021-05 Yes [id number] 10mg Take 1 [facility] 10 mg 1-12 tablet by ity of tablet 00:00: mouth as [place] 00 needed for Medical Migraine. Branch May repeat in 2 hours if needed Butalbital- 2021-05 Yes [id number] 1{capsu Take 1 [facility] Acetaminoph 1-12 le} capsule by it y of en-Caff 00:00: mouth [place] (FIORICET) 00 every 6 Medica l 50-300-40 (six) Branch mg per hours as capsule needed for Other (headache) . rizatriptan 2021-05 Yes [id number] 10mg Take 1 [facility] 10 mg 1-12 tablet by ity of tablet 00:00: mouth as [place] 00 needed for Medical Migraine. Branch May repeat in 2 hours if needed Butalbital- 2021-05 Yes [id number] 1{capsu Take 1 [facility] Acetaminoph 1-12 le} capsule by it y of en-Caff 00:00: mouth [place] (FIORICET) 00 every 6 Medica l 50-300-40 (six) Branch mg per hours as capsule needed for Other (headache) . rizatriptan 2021-05 Yes [id number] 10mg Take 1 [facility] 10 mg 1-12 tablet by ity of tablet 00:00: mouth as [place] 00 needed for Medical Migraine. Branch May repeat in 2 hours if needed Butalbital- 2021-05 Yes [id number] 1{capsu Take 1 [facility] Acetaminoph 1-12 le} capsule by it y of en-Caff 00:00: mouth [place] (FIORICET) 00 every 6 Medica l 50-300-40 (six) Branch mg per hours as capsule needed for Other (headache) . rizatriptan 2021-05 Yes [id number] 10mg Take 1 [facility] 10 mg 1-12 tablet by ity of tablet 00:00: mouth as [place] 00 needed for Medical Migraine. Branch May repeat in 2 hours if needed Butalbital- 2021-05 Yes [id number] 1{capsu Take 1 [facility] Acetaminoph 1-12 le} capsule by it y of en-Caff 00:00: mouth [place] (FIORICET) 00 every 6 Medica l 50-300-40 (six) Branch mg per hours as capsule needed for Other (headache) . rizatriptan 2021-05 Yes [id number] 10mg Take 1 [facility] 10 mg 1-12 tablet by ity of tablet 00:00: mouth as [place] 00 needed for Medical Migraine. Branch May repeat in 2 hours if needed Butalbital- 2021-05 Yes [id number] 1{capsu Take 1 [facility] Acetaminoph 1-12 le} capsule by it y of en-Caff 00:00: mouth [place] (FIORICET) 00 every 6 Medica l 50-300-40 (six) Branch mg per hours as capsule needed for Other (headache) . rizatriptan 2021-05 Yes [id number] 10mg Take 1 [facility] 10 mg 1-12 tablet by ity of tablet 00:00: mouth as [place] 00 needed for Medical Migraine. Branch May repeat in 2 hours if needed Butalbital- 2021-05 Yes [id number] 1{capsu Take 1 [facility] Acetaminoph 1-12 le} capsule by it y of en-Caff 00:00: mouth [place] (FIORICET) 00 every 6 Medica l 50-300-40 (six) Branch mg per hours as capsule needed for Other (headache) . rizatriptan 2021-05 Yes [id number] 10mg Take 1 [facility] 10 mg 1-12 tablet by ity of tablet 00:00: mouth as [place] 00 needed for Medical Migraine. Branch May repeat in 2 hours if needed Butalbital- 2021-05 Yes [id number] 1{capsu Take 1 [facility] Acetaminoph 1-12 le} [...] 1 Medical 50 mcg dose, On Branch [facility] 03/15/22 at 1030, Routine proMETHazin 2021-05 No 25mg 25 mg, Uni vers e 05-15 Oral, ity of (PHENERGAN) 14:45: 14:55 ONCE, 1 [place] 25 00 :00 dose, On Medica l mg [facility] 03/15/22 at 0945, [place] FENTanyl PF 2021-05 No 50ug 50 mcg, Un sushant (SUBLIMAZE 05-15 Slow IV ity o f (PF)) 14:45: 13:58 Push, [place] injection 00 :00 ONCE, 1 Medical 50 mcg dose, On Branch [facility] 03/15/22 at 0945, Routine ondansetron 2021-05- No 4mg 4 mg, Slow Univers (ZOFRAN 05-15 IV Push, ity of (PF)) 14:00: 13:58 ONCE, 1 [place] injection 4 00 :00 dose, On Medi yessi mg [facility] 03/15/22 at 0900, [place] ondansetron 2021-05 Yes [id number] 4mg Take 1 [facility] 4 mg -03 tablet by ity of disintegrat 00:00: mouth [place] ing tablet 00 every 8 Medica l (eight) Branch hours as needed for Nausea and Vomiting (N/V). ketorolac 2021-05 Yes [id number] 10mg Take 1 U nivers 10 mg 1-03 tablet by ity of tablet 00:00: mouth [place] 00 every 6 Medical (six) Branch hours as needed for Pain (scale 7-10). proMETHazin 2021-05 Yes [id number] 25mg Take 1 Univers e 25 mg 1-03 tablet by ity of tablet 00:00: mouth [place] 00 every 6 Medical (six) Branch hours as needed for N/V unresponsi ve to Ondansetro n. ondansetron 2021-05 Yes [id number] 4mg Take 1 [facility] 4 mg 1-03 tablet by ity of disintegrat 00:00: mouth [place] ing tablet 00 every 8 Medica l (eight) Branch hours as needed for Nausea and Vomiting (N/V). ketorolac 2021-05 Yes [id number] 10mg Take 1 U nivers 10 mg 1-03 tablet by ity of tablet 00:00: mouth [place] 00 every 6 Medical (six) Branch hours as needed for Pain (scale 7-10). proMETHazin 2021-05 Yes [id number] 25mg Take 1 Univers e 25 mg 1-03 tablet by ity of tablet 00:00: mouth [place] 00 every 6 Medical (six) Branch hours as needed for N/V unresponsi ve to Ondansetro n. carvediloL 2021-05 Yes [id number] 25mg Take 1 U nivers 25 mg 1-03 tablet by ity of tablet 00:00: mouth in [place] 00 the Medical morning Branch and 1 tablet in the evening. Take with meals. ondansetron 2021-05 Yes [id number] 4mg Take 1 [facility] 4 mg 1-03 tablet by ity of disintegrat 00:00: mouth [place] ing tablet 00 every 8 Medica l (eight) Branch hours as needed for Nausea and Vomiting (N/V). ketorolac 2021-05 Yes [id number] 10mg Take 1 U nivers 10 mg 1-03 tablet by ity of tablet 00:00: mouth [place] 00 every 6 Medical (six) Branch hours as needed for Pain (scale 7-10). proMETHazin 2021-05 Yes [id number] 25mg Take 1 Univers e 25 mg 1-03 tablet by ity of tablet 00:00: mouth [place] 00 every 6 Medical (six) Branch hours as needed for N/V unresponsi ve to Ondansetro n. carvediloL 2021-05 Yes [id number] 25mg Take 1 U nivers 25 mg 1-03 tablet by ity of tablet 00:00: mouth in [place] 00 the Medical morning Branch and 1 tablet in the evening. Take with meals. ondansetron 2021-05 Yes [id number] 4mg Take 1 [facility] 4 mg 1-03 tablet by ity of disintegrat 00:00: mouth [place] ing tablet 00 every 8 Medica l (eight) Branch hours as needed for Nausea and Vomiting (N/V). ketorolac 2021-05 Yes [id number] 10mg Take 1 U nivers 10 mg 1-03 tablet by ity of tablet 00:00: mouth [place] 00 every 6 Medical (six) Branch hours as needed for Pain (scale 7-10). proMETHazin 2021-05 Yes [id number] 25mg Take 1 Univers e 25 mg 1-03 tablet by ity of tablet 00:00: mouth [place] 00 every 6 Medical (six) Branch hours as needed for N/V unresponsi ve to Ondansetro n. carvediloL 2021-05 Yes [id number] 25mg Take 1 U nivers 25 mg 1-03 tablet by ity of tablet 00:00: mouth in [place] 00 the Medical morning Branch and 1 tablet in the evening. Take with meals. ondansetron 2021-05 Yes [id number] 4mg Take 1 [facility] 4 mg 1-03 tablet by ity of disintegrat 00:00: mouth [place] ing tablet 00 every 8 Medica l (eight) Branch hours as needed for Nausea and Vomiting (N/V). ketorolac 2021-05 Yes [id number] 10mg Take 1 U nivers 10 mg 1-03 tablet by ity of tablet 00:00: mouth [place] 00 every 6 Medical (six) Branch hours as needed for Pain (scale 7-10). proMETHazin 2021-05 Yes [id number] 25mg Take 1 Univers e 25 mg 1-03 tablet by ity of tablet 00:00: mouth [place] 00 every 6 Medical (six) Branch hours as needed for N/V unresponsi ve to Ondansetro n. carvediloL 2021-05 Yes [id number] 25mg Take 1 U nivers 25 mg 1-03 tablet by ity of tablet 00:00: mouth in [place] 00 the Medical morning Branch and 1 tablet in the evening. Take with meals. ondansetron 2021-05 Yes [id number] 4mg Take 1 [facility] 4 mg 1-03 tablet by ity of disintegrat 00:00: mouth [place] ing tablet 00 every 8 Medica l (eight) Branch hours as needed for Nausea and Vomiting (N/V). ketorolac 2021-05 Yes [id number] 10mg Take 1 U nivers 10 mg 1-03 tablet by ity of tablet 00:00: mouth [place] 00 every 6 Medical (six) Branch hours as needed for Pain (scale 7-10). proMETHazin 2021-05 Yes [id number] 25mg Take 1 Univers e 25 mg 1-03 tablet by ity of tablet 00:00: mouth [place] 00 every 6 Medical (six) Branch hours as needed for N/V unresponsi ve to Ondansetro n. carvediloL 2021-05 Yes [id number] 25mg Take 1 U nivers 25 mg 1-03 tablet by ity of tablet 00:00: mouth in [place] 00 the Medical morning Branch and 1 tablet in the evening. Take with meals. ondansetron 2021-05 Yes [id number] 4mg Take 1 [facility] 4 mg 1-03 tablet by ity of disintegrat 00:00: mouth [place] ing tablet 00 every 8 Medica l (eight) Branch hours as needed for Nausea and Vomiting (N/V). ketorolac 2021-05 Yes [id number] 10mg Take 1 U nivers 10 mg 1-03 tablet by ity of tablet 00:00: mouth [place] 00 every 6 Medical (six) Branch hours as needed for Pain (scale 7-10). proMETHazin 2021-05 Yes [id number] 25mg Take 1 Univers e 25 mg 1-03 tablet by ity of tablet 00:00: mouth [place] 00 every 6 Medical (six) Branch hours as needed for N/V unresponsi ve to Ondansetro n. carvediloL 2021-05 Yes [id number] 25mg Take 1 U nivers 25 mg 1-03 tablet by ity of tablet 00:00: mouth in [place] 00 the Medical morning Branch and 1 tablet in the evening. Take with meals. ondansetron 2021-05 Yes [id number] 4mg Take 1 [facility] 4 mg 1-03 tablet by ity of disintegrat 00:00: mouth [place] ing tablet 00 every 8 Medica l (eight) Branch hours as needed for Nausea and Vomiting (N/V). ketorolac 2021-05 Yes [id number] 10mg Take 1 U nivers 10 mg 1-03 tablet by ity of tablet 00:00: mouth [place] 00 every 6 Medical (six) Branch hours as needed for Pain (scale 7-10). proMETHazin 2021-05 Yes [id number] 25mg Take 1 Univers e 25 mg 1-03 tablet by ity of tablet 00:00: mouth [place] 00 every 6 Medical (six) Branch hours as needed for N/V unresponsi ve to Ondansetro n. carvediloL 2021-05 Yes [id number] 25mg Take 1 U nivers 25 mg 1-03 tablet by ity of tablet 00:00: mouth in [place] 00 the Medical morning Branch and 1 tablet in the evening. Take with meals. ondansetron 2021-05 Yes [id number] 4mg Take 1 [facility] 4 mg 1-03 tablet by ity of disintegrat 00:00: mouth [place] ing tablet 00 every 8 Medica l (eight) Branch hours as needed for Nausea and Vomiting (N/V). ketorolac 2021-05 Yes [id number] 10mg Take 1 U nivers 10 mg 1-03 tablet by ity of tablet 00:00: mouth [place] 00 every 6 Medical (six) Branch hours as needed for Pain (scale 7-10). proMETHazin 2021-05 Yes [id number] 25mg Take 1 Univers e 25 mg 1-03 tablet by ity of tablet 00:00: mouth [place] 00 every 6 Medical (six) Branch hours as needed for N/V unresponsi ve to Ondansetro n. carvediloL 2021-05 Yes [id number] 25mg Take 1 U nivers 25 mg 1-03 tablet by ity of tablet 00:00: mouth in [place] 00 the Medical morning Branch and 1 tablet in the evening. Take with meals. ondansetron 2021-05 Yes [id number] 4mg Take 1 [facility] 4 mg 1-03 tablet by ity of disintegrat 00:00: mouth [place] ing tablet 00 every 8 Medica l (eight) Branch hours as needed for Nausea and Vomiting (N/V). ketorolac 2021-05 Yes [id number] 10mg Take 1 U nivers 10 mg 1-03 tablet by ity of tablet 00:00: mouth [place] 00 every 6 Medical (six) Branch hours as needed for Pain (scale 7-10). proMETHazin 2021-05 Yes [id number] 25mg Take 1 Univers e 25 mg 1-03 tablet by ity of tablet 00:00: mouth [place] 00 every 6 Medical (six) Branch hours as needed for N/V unresponsi ve to Ondansetro n. carvediloL 2021-05 Yes [id number] 25mg Take 1 U nivers 25 mg 1-03 tablet by ity of tablet 00:00: mouth in [place] 00 the Medical morning Branch and 1 tablet in the evening. Take with meals. carvediloL 2021-05 Yes [id number] 25mg Take 1 U nivers 25 mg 1-03 tablet by ity of tablet 00:00: mouth in [place] 00 the Medical morning Branch and 1 tablet in the evening. Take with meals. carvediloL 2021-05 Yes [id number] 25mg Take 1 U nivers 25 mg 1-03 tablet by ity of tablet 00:00: mouth in [place] 00 the Medical morning Branch and 1 tablet in the evening. Take with meals. carvediloL 2021-05 Yes [id number] 25mg Take 1 U nivers 25 mg 1-03 tablet by ity of tablet 00:00: mouth in [place] 00 the Medical morning Branch and 1 tablet in the evening. Take with meals. carvediloL 2021-05 Yes [id number] 25mg Take 1 U nivers 25 mg 1-03 tablet by ity of tablet 00:00: mouth in [place] 00 the Medical morning Branch and 1 tablet in the evening. Take with meals. carvediloL 2021-05 Yes [id number] 25mg Take 1 U nivers 25 mg 1-03 tablet by ity of tablet 00:00: mouth in [place] 00 the Medical morning Branch and 1 tablet in the evening. Take with meals. carvediloL 2021-05 Yes [id number] 25mg Take 1 U nivers 25 mg 1-03 tablet by ity of tablet 00:00: mouth in [place] 00 the Medical morning Branch and 1 tablet in the evening. Take with meals. carvediloL 2021-05 Yes [id number] 25mg Take 1 U nivers 25 mg 1-03 tablet by ity of tablet 00:00: mouth in [place] 00 the Medical morning [place] and 1 tablet in the evening. Take with meals. carvediloL 2021-05 Yes [id number] 25mg Take 1 U nivers 25 mg 1-03 tablet by ity of tablet 00:00: mouth in [place] [address] the Medical morning Branch and 1 tablet in the evening. Take with meals. carvediloL 2021-05 Yes [id number] 25mg Take 1 U nivers 25 mg 1-03 tablet by ity of tablet 00:00: mouth in [place] [address] the Medical morning Branch and 1 tablet in the evening. Take with meals. carvediloL 2021-05 Yes [id number] 25mg Take 1 U nivers 25 mg 1-03 tablet by ity of tablet 00:00: mouth in [place] [address] the Medical morning Branch and 1 tablet in the evening. Take with meals. carvediloL 2021-05 Yes [id number] 25mg Take 1 U nivers 25 mg 1-03 tablet by ity of tablet 00:00: mouth in [place] [address] the Medical morning [place] and 1 tablet in the evening. Take with meals. carvediloL 2021-05 Yes [id number] 25mg Take 1 U nivers 25 mg 1-03 tablet by ity of tablet 00:00: mouth in [place] [address] the Medical morning [place] and 1 tablet in the evening. Take with meals. carvediloL 2021-05 Yes [id number] 25mg Take 1 U nivers 25 mg 1-03 tablet by ity of tablet 00:00: mouth in [place] [address] the Medical morning [place] and 1 tablet in the evening. Take with meals. carvediloL 2021-05 Yes [id number] 25mg Take 1 U nivers 25 mg 1-03 tablet by ity of tablet 00:00: mouth in [place] [address] the Medical morning [place] and 1 tablet in the evening. Take with meals. carvediloL 2021-05 Yes [id number] 25mg Take 1 U nivers 25 mg 1-03 tablet by ity of tablet 00:00: mouth in [place] [address] the Medical morning [place] and 1 tablet in the evening. Take with meals. carvediloL 2021-05 Yes [id number] 25mg Take 1 U nivers 25 mg 1-03 tablet by ity of tablet 00:00: mouth in [place] [address] the Medical morning [place] and 1 tablet in the evening. Take with meals. carvediloL 2021-05 Yes [id number] 25mg Take 1 U nivers 25 mg 1-03 tablet by ity of tablet 00:00: mouth in [place] [address] the [facility] morning [place] and 1 tablet in the evening. Take with meals. carvediloL 2021-05 Yes [id number] 25mg Take 1 U nivers 25 mg 1-03 tablet by ity of tablet 00:00: mouth in [place] 00 the [facility] morning [place] and 1 tablet in the evening. Take with meals. carvediloL 2021-05 Yes [id number] 25mg Take 1 U nivers 25 mg 1-03 tablet by ity of tablet 00:00: mouth in [place] 00 the [facility] and 1 tablet in the evening. Take with meals. carvediloL 2021-05 Yes [id number] 25mg Take 1 U nivers 25 mg 1-03 tablet by ity of tablet 00:00: mouth in [place] 00 the [facility] and 1 tablet in the evening. Take with meals. carvediloL 2021-05 Yes [id number] 25mg Take 1 U nivers 25 mg 1-03 tablet by ity of tablet 00:00: mouth in [place] [address] the [facility] and 1 tablet in the evening. Take with meals. carvediloL 2021-05- No [id number] 25mg Take 1 Univers 25 mg 1-03 04-26 tablet by ity of tablet 00:00: 00:00 mouth in [place] 00 :00 the [facility] and 1 tablet in the evening. Take with meals. carvediloL 2021-05- No [id number] 25mg Take 1 [facility] 25 mg 1-03 04-26 tablet by ity of tablet 00:00: 00:00 mouth in [place] 00 :00 the [facility] and 1 tablet in the evening. Take with meals. ondansetron 2021-05- No [id number] 4mg Take 1 [facility] 4 mg 1-03 11-26 tablet by ity of disintegrat 00:00: 00:00 [place] 00 :00 every 8 Medica l (eight) Branch hours as needed for Nausea and Vomiting (N/V). ketorolac 2021-05- No [id number] 10mg Take 1 [facility] 10 mg 1-03 11-26 tablet by ity of tablet 00:00: 00:00 mouth [place] 00 :00 every 6 Medical (six) Branch hours as needed for Pain (scale 7-10). proMETHazin 2021-05- No [id number] 25mg Take 1 Univers e 25 mg 05-15 tablet by ity of tablet 00:00: 00:00 mouth [place] 00 :00 every 6 Medical (six) Branch hours as needed for N/V unresponsi ve to Ondansetro n. cephALEXin 2021-05- No [id number] 500mg Take 1 [facility] 500 mg 05-15 capsule by ity of capsule 00:00: 05:59 mouth 4 [place] 00 :00 (four) Medical times Branch daily for 3 days. cephALEXin 2021-05- No [id number] 500mg Take 1 [facility] 500 mg 05-15 capsule by ity of capsule 00:00: 05:59 mouth 4 [place] 00 :00 (four) Medical times [place] daily for 3 days. cephALEXin 2021-05- No [id number] 500mg Take 1 [facility] 500 mg 05-15 capsule by ity of capsule 00:00: 05:59 mouth 4 [place] 00 :00 (four) Medical times [place] daily for 3 days. predniSONE 2021-05- No [id number] 20mg Take 1 [facility] 20 mg 03-15 tablet by ity of tablet 00:00: 04:59 mouth in [place] 00 :00 the Medical morning Branch for 2 days. methocarbam 2021-05- No 500mg 500 mg, U nivers oL 0-30 10-30 Oral, ity of (ROBAXIN) 16:45: 17:08 ONCE, 1 [place] 00 :00 dose, On Medic al mg [facility] 03/11/22 at 1200, [place] dexamethaso 2021-05- No 10mg 10 mg, Uni vers ne sod phos 0-30 10-30 Slow IV ity of PF 16:00: 16:00 Push, [place] injection 00 :00 ONCE, 1 Medical 10 mg dose, On [facility] 03/11/22 at 1100, 1 mL diphenhydrA 2021-05- No 25mg 25 mg, Uni vers MINE 0-30 10-30 Slow IV ity of (BENADRYL) 15:46: 16:00 Push, [place] injection 00 :00 ONCE, 1 Medical 25 mg dose, On [facility] 03/11/22 at 1100, STAT NaCl 0.9% 2021-05 No 1000mL at 999 Uni vers (NS) IV 0-30 10-30 mL/hr, ity of infusion 15:45: 16:04 [place]ven[place] 1,000 mL 00 :00 s, ONCE, 1 Medic al dose, On [facility] 03/11/22 at 1045, Routine butalbital- 2021-05- No [...] 00 :00 ONCE, 1 Medical dose, On [facility] 03/11/22 at 0945, [place] proMETHazin 2021-05 No 12.5mg 12.5 mg, Univers e 0-30 10-30 IV ity of (PHENERGAN) 14:45: 15:04 Piggyback, [place] 12.5 mg in 00 :00 ONCE, 1 Medica l NaCl 0.9% dose, On Branch (NS) 50 mL Sun IV 03/11/22 piggyback at 0945, [place] proMETHazin 2021-05 Yes [id number] 25mg Take 1 Univers e 25 mg 0-30 tablet by ity of tablet 00:00: mouth [place] 00 every 6 Medical (six) Branch hours as needed for Nausea and Vomiting (N/V). methocarbam 2021-05 Yes [id number] 500mg Take 1 Univers oL 500 mg 0-30 tablet by ity o f tablet 00:00: mouth 3 [place] 00 (three) Medical times Branch daily as needed for Pain (scale 7-10). proMETHazin 2021-05 Yes [id number] 25mg Take 1 Univers e 25 mg 0-30 tablet by ity of tablet 00:00: mouth [place] 00 every 6 Medical (six) Branch hours as needed for Nausea and Vomiting (N/V). methocarbam 2021-05 Yes [id number] 500mg Take 1 [facility] oL 500 mg 0-30 tablet by ity o f tablet 00:00: mouth 3 [place] 00 (three) Medical times Branch daily as needed for Pain (scale 7-10). proMETHazin 2021-05 Yes [id number] 25mg Take 1 Univers e 25 mg 0-30 tablet by ity of tablet 00:00: mouth [place] 00 every 6 Medical (six) Branch hours as needed for Nausea and Vomiting (N/V). methocarbam 2021-05 Yes [id number] 500mg Take 1 Univers oL 500 mg 0-30 tablet by ity o f tablet 00:00: mouth 3 [place] 00 (three) Medical times Branch daily as needed for Pain (scale 7-10). proMETHazin 2021-05 Yes [id number] 25mg Take 1 Univers e 25 mg 0-30 tablet by ity of tablet 00:00: mouth [place] 00 every 6 Medical (six) Branch hours as needed for Nausea and Vomiting (N/V). methocarbam 2021-05 Yes [id number] 500mg Take 1 Univers oL 500 mg 0-30 tablet by ity o f tablet 00:00: mouth 3 00 (three) Medical times Branch daily as needed for Pain (scale 7-10). proMETHazin 2021-05 Yes [id number] 25mg Take 1 Univers e 25 mg 0-30 tablet by ity of tablet 00:00: mouth [place] 00 every 6 Medical (six) Branch hours as needed for Nausea and Vomiting (N/V). methocarbam 2021-05 Yes [id number] 500mg Take 1 Univers oL 500 mg 0-30 tablet by ity o f tablet 00:00: mouth 3 [place] 00 (three) Medical times Branch daily as needed for Pain (scale 7-10). proMETHazin 2021-05 Yes [id number] 25mg Take 1 Univers e 25 mg 0-30 tablet by ity of tablet 00:00: mouth [place] 00 every 6 Medical (six) Branch hours as needed for Nausea and Vomiting (N/V). methocarbam 2021-05 Yes [id number] 500mg Take 1 Univers oL 500 mg 0-30 tablet by ity o f tablet 00:00: mouth 3 [place] 00 (three) Medical times Branch daily as needed for Pain (scale 7-10). proMETHazin 2021-05 Yes [id number] 25mg Take 1 Univers e 25 mg 0-30 tablet by ity of tablet 00:00: mouth [place] 00 every 6 Medical (six) Branch hours as needed for Nausea and Vomiting (N/V). methocarbam 2021-05 Yes [id number] 500mg Take 1 Univers oL 500 mg 0-30 tablet by ity o f tablet 00:00: mouth 3 [place] 00 (three) Medical times Branch daily as needed for Pain (scale 7-10). proMETHazin 2021-05 Yes [id number] 25mg Take 1 Univers e 25 mg 0-30 tablet by ity of tablet 00:00: mouth [place] 00 every 6 Medical (six) Branch hours as needed for Nausea and Vomiting (N/V). methocarbam 2021-05 Yes [id number] 500mg Take 1 Univers oL 500 mg 0-30 tablet by ity o f tablet 00:00: mouth 3 [place] 00 (three) Medical times Branch daily as needed for Pain (scale 7-10). proMETHazin 2021-05 Yes [id number] 25mg Take 1 Univers e 25 mg 0-30 tablet by ity of tablet 00:00: mouth [place] 00 every 6 Medical (six) Branch hours as needed for Nausea and Vomiting (N/V). methocarbam 2021-05 Yes [id number] 500mg Take 1 Univers oL 500 mg 0-30 tablet by ity o f tablet 00:00: mouth 3 [place] 00 (three) Medical times Branch daily as needed for Pain (scale 7-10). proMETHazin 2021-05 Yes [id number] 25mg Take 1 Univers e 25 mg 0-30 tablet by ity of tablet 00:00: mouth [place] 00 every 6 Medical (six) Branch hours as needed for Nausea and Vomiting (N/V). methocarbam 2021-05 Yes [id number] 500mg Take 1 Univers oL 500 mg 0-30 tablet by ity o f tablet 00:00: mouth 3 [place] 00 (three) Medical times Branch daily as needed for Pain (scale 7-10). proMETHazin 2021-05 Yes [id number] 25mg Take 1 Univers e 25 mg 0-30 tablet by ity of tablet 00:00: mouth [place] 00 every 6 Medical (six) Branch hours as needed for Nausea and Vomiting (N/V). methocarbam 2021-05 Yes [id number] 500mg Take 1 Univers oL 500 mg 0-30 tablet by ity o f tablet 00:00: mouth 3 [place] 00 (three) Medical times Branch daily as needed for Pain (scale 7-10). proMETHazin 2021-05 Yes [id number] 25mg Take 1 Univers e 25 mg 0-30 tablet by ity of tablet 00:00: mouth [place] 00 every 6 Medical (six) Branch hours as needed for Nausea and Vomiting (N/V). proMETHazin 2021-05 Yes [id number] 25mg Take 1 Univers e 25 mg 0-30 tablet by ity of tablet 00:00: mouth [place] 00 every 6 Medical (six) Branch hours as needed for Nausea and Vomiting (N/V). proMETHazin 2021-05 Yes [id number] 25mg Take 1 Univers e 25 mg 0-30 tablet by ity of tablet 00:00: mouth [place] 00 every 6 Medical (six) Branch hours as needed for Nausea and Vomiting (N/V). proMETHazin 2021-05 Yes [id number] 25mg Take 1 Univers e 25 mg 0-30 tablet by ity of tablet 00:00: mouth [place] 00 every 6 Medical (six) Branch hours as needed for Nausea and Vomiting (N/V). proMETHazin 2021-05 Yes [id number] 25mg Take 1 Univers e 25 mg 0-30 tablet by ity of tablet 00:00: mouth [place] 00 every 6 Medical (six) Branch hours as needed for Nausea and Vomiting (N/V). proMETHazin 2021-05 Yes [id number] 25mg Take 1 Univers e 25 mg 0-30 tablet by ity of tablet 00:00: mouth [place] 00 every 6 Medical (six) Branch hours as needed for Nausea and Vomiting (N/V). proMETHazin 2021-05 Yes [id number] 25mg Take 1 Univers e 25 mg 0-30 tablet by ity of tablet 00:00: mouth [place] 00 every 6 Medical (six) Branch hours as needed for Nausea and Vomiting (N/V). proMETHazin 2021-05 Yes [id number] 25mg Take 1 [facility] e 25 mg 0-30 tablet by ity of tablet 00:00: mouth [place] 00 every 6 Medical (six) Branch hours as needed for Nausea and Vomiting (N/V). proMETHazin 2021-05 Yes [id number] 25mg Take 1 [facility] e 25 mg 0-30 tablet by ity of tablet 00:00: mouth [place] 00 every 6 Medical (six) Branch hours as needed for Nausea and Vomiting (N/V). proMETHazin 2021-05 Yes [id number] 25mg Take 1 [facility] e 25 mg 0-30 tablet by ity of tablet 00:00: mouth [place] 00 every 6 Medical (six) Branch hours as needed for Nausea and Vomiting (N/V). proMETHazin 2021-05 Yes [id number] 25mg Take 1 [facility] e 25 mg 0-30 tablet by ity of tablet 00:00: mouth [place] 00 every 6 Medical (six) Branch hours as needed for Nausea and Vomiting (N/V). proMETHazin 2021-05 Yes [id number] 25mg Take 1 [facility] e 25 mg 0-30 tablet by ity of tablet 00:00: mouth [place] 00 every 6 Medical (six) Branch hours as needed for Nausea and Vomiting (N/V). proMETHazin 2021-05 Yes [id number] 25mg Take 1 [facility] e 25 mg 0-30 tablet by ity of tablet 00:00: mouth [place] 00 every 6 Medical (six) Branch hours as needed for Nausea and Vomiting (N/V). proMETHazin 2021-05 Yes [id number] 25mg Take 1 [facility] e 25 mg 0-30 tablet by ity of tablet 00:00: mouth [place] 00 every 6 Medical (six) Branch hours as needed for Nausea and Vomiting (N/V). proMETHazin 2021-05 Yes [id number] 25mg Take 1 [facility] e 25 mg 0-30 tablet by ity of tablet 00:00: mouth [place] 00 every 6 Medical (six) Branch hours as needed for Nausea and Vomiting (N/V). proMETHazin 2021-05 Yes [id number] 25mg Take 1 [facility] e 25 mg 0-30 tablet by ity of tablet 00:00: mouth [place] 00 every 6 Medical (six) Branch hours as needed for Nausea and Vomiting (N/V). proMETHazin 2021-05 Yes [id number] 25mg Take 1 [facility] e 25 mg 0-30 tablet by ity of tablet 00:00: mouth [place] 00 every 6 Medical (six) Branch hours as needed for Nausea and Vomiting (N/V). proMETHazin 2021-05- No [id number] 25mg Take 1 [facility] e 25 mg 0-30 03-21 tablet by ity of tablet 00:00: 00:00 mouth [place] 00 :00 every 6 Medical (six) Branch hours as needed for Nausea and Vomiting (N/V). methocarbam 2021-05- No [id number] 500mg Take 1 [facility] oL 500 mg 0-30 11-26 tablet by ity of tablet 00:00: 00:00 mouth 3 [place] 00 :00 (three) Medical times Branch daily as needed for Pain (scale 7-10). topiramate 2021-05 Yes [id number] 100mg Take 4 [facility] 25 mg 0-21 tablets by ity of tablet 00:00: mouth in [place] the Medical morning. [place] topiramate 2021-05 Yes [id number] 100mg Take 4 [facility] 25 mg 0-21 tablets by ity of tablet 00:00: mouth in [place] the Medical morning. [place] topiramate 2021-05 Yes [id number] 100mg Take 4 [facility] 25 mg 0-21 tablets by ity of tablet 00:00: mouth in [place] the Medical morning. [place] topiramate 2021-05 Yes [id number] 100mg Take 4 [facility] 25 mg 0-21 tablets by ity of tablet 00:00: mouth in [place] the morning. [place] topiramate 2021-05 Yes [id number] 100mg Take 4 [facility] 25 mg 0-21 tablets by ity of tablet 00:00: mouth in [place] the Medical morning. [place] topiramate 2021-05 Yes [id number] 100mg Take 4 [facility] 25 mg 0-21 tablets by ity of tablet 00:00: mouth in [place] the Medical morning. [place] topiramate 2021-05 Yes [id number] 100mg Take 4 [facility] 25 mg 0-21 tablets by ity of tablet 00:00: mouth in [place] the morning. [place] topiramate 2021-05 Yes [id number] 100mg Take 4 [facility] 25 mg 0-21 tablets by ity of tablet 00:00: mouth in [place] the Medical morning. [place] topiramate 2021-05 Yes [id number] 100mg Take 4 [facility] 25 mg 0-21 tablets by ity of tablet 00:00: mouth in [place] 00 the Medical morning. Branch topiramate 2-1 Yes [id number] 100mg Take 4 [facility] 25 mg 0-21 tablets by ity of tablet 00:00: mouth in [place] the Medical morning. Branch topiramate 2-1 Yes [id number] 100mg Take 4 [facility] 25 mg 0-21 tablets by ity of tablet 00:00: mouth in [place] the Medical morning. Branch topiramate 2-1 Yes [id number] 100mg Take 4 [facility] 25 mg 0-21 tablets by ity of tablet 00:00: mouth in [place] the Medical morning. Branch topiramate 2-1 Yes [id number] 100mg Take 4 [facility] 25 mg 0-21 tablets by ity of tablet 00:00: mouth in [place] the Medical morning. Branch topiramate 2-1 Yes [id number] 100mg Take 4 [facility] 25 mg 0-21 tablets by ity of tablet 00:00: mouth in [place] the Medical morning. Branch topiramate 2021-1 Yes [id number] 100mg Take 4 [facility] 25 mg 0-21 tablets by ity of tablet 00:00: mouth in [place] the Medical morning. Branch topiramate 2-1 Yes [id number] 100mg Take 4 [facility] 25 mg 0-21 tablets by ity of tablet 00:00: mouth in [place] the Medical morning. Branch topiramate 2-1 Yes [id number] 100mg Take 4 [facility] 25 mg 0-21 tablets by ity of tablet 00:00: mouth in [place] the Medical morning. Branch topiramate 2-1 Yes [id number] 100mg Take 4 [facility] 25 mg 0-21 tablets by ity of tablet 00:00: mouth in [place] the Medical morning. Branch topiramate 2-1 Yes [id number] 100mg Take 4 [facility] 25 mg 0-21 tablets by ity of tablet 00:00: mouth in [place] the Medical morning. Branch topiramate 2022-1 Yes [id number] 100mg Take 4 [facility] 25 mg 0-21 tablets by ity of tablet 00:00: mouth in [place] 00 the Medical morning. Branch topiramate 2022-1 Yes [id number] 100mg Take 4 [facility] 25 mg 0-21 tablets by ity of tablet 00:00: mouth in [place] 00 the Medical morning. Branch topiramate 2022-1 Yes [id number] 100mg Take 4 [facility] 25 mg 0-21 tablets by ity of tablet 00:00: mouth in [place] the Medical morning. Branch topiramate 2021-1 Yes [id number] 100mg Take 4 [facility] 25 mg 0-21 tablets by ity of tablet 00:00: mouth in [place] the Medical morning. Branch topiramate 2021-1 Yes [id number] 100mg Take 4 [facility] 25 mg 0-21 tablets by ity of tablet 00:00: mouth in [place] the Medical morning. Branch topiramate 2021-1 Yes [id number] 100mg Take 4 [facility] 25 mg 0-21 tablets by ity of tablet 00:00: mouth in [place] the Medical morning. Branch topiramate 2021-1 Yes [id number] 100mg Take 4 [facility] 25 mg 0-21 tablets by ity of tablet 00:00: mouth in [place] the Medical morning. Branch topiramate 2021-1 Yes [id number] 100mg Take 4 [facility] 25 mg 0-21 tablets by ity of tablet 00:00: mouth in [place] the Medical morning. Branch topiramate 2021- Yes [id number] 100mg Take 4 [facility] 25 mg 0-21 tablets by ity of tablet 00:00: mouth in [place] the Medical morning. Branch topiramate 2021- Yes [id number] 100mg Take 4 [facility] 25 mg 0-21 tablets by ity of tablet 00:00: mouth in [place] the Medical morning. Branch topiramate 2021-1 Yes [id number] 100mg Take 4 [facility] 25 mg 0-21 tablets by ity of tablet 00:00: mouth in [place] the Medical morning. Branch topiramate 2-1 Yes [id number] 100mg Take 4 [facility] 25 mg 0-21 tablets by ity of tablet 00:00: mouth in [place] the Medical morning. Branch topiramate 2-1 Yes [id number] 100mg Take 4 [facility] 25 mg 0-21 tablets by ity of tablet 00:00: mouth in [place] the Medical morning. Branch topiramate 2-1 Yes [id number] 100mg Take 4 [facility] 25 mg 0-21 tablets by ity of tablet 00:00: mouth in [place] the Medical morning. Branch topiramate 2021-1 Yes [id number] 100mg Take 4 [facility] 25 mg 0-21 tablets by ity of tablet 00:00: mouth in [place] the Medical morning. Branch topiramate 2021-05 Yes [id number] 100mg Take 4 [facility] 25 mg 0-21 tablets by ity of tablet 00:00: mouth in [place] the Medical morning. Branch topiramate 2021-05 Yes [id number] 100mg Take 4 [facility] 25 mg 0-21 tablets by ity of tablet 00:00: mouth in [place] the Medical morning. Branch topiramate 2021-05 Yes [id number] 100mg Take 4 [facility] 25 mg 0-21 tablets by ity of tablet 00:00: mouth in [place] the Medical morning. Branch topiramate 2021-05 Yes [id number] 100mg Take 4 [facility] 25 mg 0-21 tablets by ity of tablet 00:00: mouth in [place] the Medical morning. Branch topiramate 2021-05 Yes [id number] 100mg Take 4 [facility] 25 mg 0-21 tablets by ity of tablet 00:00: mouth in [place] the Medical morning. Branch topiramate 2021-05 Yes [id number] 100mg Take 4 [facility] 25 mg 0-21 tablets by ity of tablet 00:00: mouth in [place] the Medical morning. Branch topiramate 2021-05 Yes [id number] 100mg Take 4 [facility] 25 mg 0-21 tablets by ity of tablet 00:00: mouth in [place] the Medical morning. Branch topiramate 2021-05 Yes [id number] 100mg Take 4 [facility] 25 mg 0-21 tablets by ity of tablet 00:00: mouth in [place] the Medical morning. Branch topiramate 2021-05 Yes [id number] 100mg Take 4 [facility] 25 mg 0-21 tablets by ity of tablet 00:00: mouth in [place] the Medical morning. Branch topiramate 2021-05 Yes [id number] 100mg Take 4 [facility] 25 mg 0-21 tablets by ity of tablet 00:00: mouth in [place] 00 the Medical morning. Branch diphenhydrA 2021-05- [...] 28 :00 Medical Branch albuterol 2021-05 Yes [id number] 2{puff} Inhale 2 [facility] 90 0-18 Puffs ity of mcg/actuati 00:00: every 6 [place] on inhaler 00 (six) Medical hours as Branch needed for Wheezing or Shortness of Breath. albuterol 2021-05 Yes [id number] 2{puff} Inhale 2 [facility] 90 0-18 Puffs ity of mcg/actuati 00:00: every 6 [place] on inhaler 00 (six) Medical hours as Branch needed for Wheezing or Shortness of Breath. albuterol 2021-05 Yes [id number] 2{puff} Inhale 2 [facility] 90 0-18 Puffs ity of mcg/actuati 00:00: every 6 [place] on inhaler 00 (six) Medical hours as Branch needed for Wheezing or Shortness of Breath. albuterol 2021-05 Yes [id number] 2{puff} Inhale 2 [facility] 90 0-18 Puffs ity of mcg/actuati 00:00: every 6 [place] on inhaler 00 (six) Medical hours as Branch needed for Wheezing or Shortness of Breath. albuterol 2021-05 Yes [id number] 2{puff} Inhale 2 [facility] 90 0-18 Puffs ity of mcg/actuati 00:00: every 6 [place] on inhaler 00 (six) Medical hours as Branch needed for Wheezing or Shortness of Breath. albuterol 2021-05 Yes [id number] 2{puff} Inhale 2 [facility] 90 0-18 Puffs ity of mcg/actuati 00:00: every 6 [place] on inhaler 00 (six) Medical hours as Branch needed for Wheezing or Shortness of Breath. albuterol 2021-05 Yes [id number] 2{puff} Inhale 2 [facility] 90 0-18 Puffs ity of mcg/actuati 00:00: every 6 [place] on inhaler 00 (six) Medical hours as Branch needed for Wheezing or Shortness of Breath. albuterol 2021-05 Yes [id number] 2{puff} Inhale 2 [facility] 90 0-18 Puffs ity of mcg/actuati 00:00: every 6 [place] on inhaler 00 (six) Medical hours as Branch needed for Wheezing or Shortness of Breath. albuterol 2021-05 Yes [id number] 2{puff} Inhale 2 [facility] 90 0-18 Puffs ity of mcg/actuati 00:00: every 6 [place] on inhaler 00 (six) Medical hours as Branch needed for Wheezing or Shortness of Breath. albuterol 2021-05 Yes [id number] 2{puff} Inhale 2 [facility] 90 0-18 Puffs ity of mcg/actuati 00:00: every 6 [place] on inhaler 00 (six) Medical hours as Branch needed for Wheezing or Shortness of Breath. albuterol 2021-05 Yes [id number] 2{puff} Inhale 2 [facility] 90 0-18 Puffs ity of mcg/actuati 00:00: every 6 [place] on inhaler 00 (six) Medical hours as Branch needed for Wheezing or Shortness of Breath. albuterol 2021-05 Yes [id number] 2{puff} Inhale 2 [facility] 90 0-18 Puffs ity of mcg/actuati 00:00: every 6 [place] on inhaler 00 (six) Medical hours as Branch needed for Wheezing or Shortness of Breath. albuterol 2021-05 Yes [id number] 2{puff} Inhale 2 [facility] 90 0-18 Puffs ity of mcg/actuati 00:00: every 6 [place] on inhaler 00 (six) Medical hours as Branch needed for Wheezing or Shortness of Breath. albuterol 2021-05 Yes [id number] 2{puff} Inhale 2 [facility] 90 0-18 Puffs ity of mcg/actuati 00:00: every 6 [place] on inhaler 00 (six) Medical hours as Branch needed for Wheezing or Shortness of Breath. albuterol 2021-05 Yes [id number] 2{puff} Inhale 2 [facility] 90 0-18 Puffs ity of mcg/actuati 00:00: every 6 [place] on inhaler 00 (six) Medical hours as Branch needed for Wheezing or Shortness of Breath. albuterol 2021-05 Yes [id number] 2{puff} Inhale 2 [facility] 90 0-18 Puffs ity of mcg/actuati 00:00: every 6 [place] on inhaler 00 (six) Medical hours as Branch needed for Wheezing or Shortness of Breath. albuterol 2021-05 Yes [id number] 2{puff} Inhale 2 [facility] 90 0-18 Puffs ity of mcg/actuati 00:00: every 6 [place] on inhaler 00 (six) Medical hours as Branch needed for Wheezing or Shortness of Breath. albuterol 2021-05 Yes [id number] 2{puff} Inhale 2 [facility] 90 0-18 Puffs ity of mcg/actuati 00:00: every 6 [place] on inhaler 00 (six) Medical hours as Branch needed for Wheezing or Shortness of Breath. albuterol 2021-05 Yes [id number] 2{puff} Inhale 2 [facility] 90 0-18 Puffs ity of mcg/actuati 00:00: every 6 [place] on inhaler 00 (six) Medical hours as Branch needed for Wheezing or Shortness of Breath. albuterol 2021-05 Yes [id number] 2{puff} Inhale 2 [facility] 90 0-18 Puffs ity of mcg/actuati 00:00: every 6 [place] on inhaler 00 (six) Medical hours as Branch needed for Wheezing or Shortness of Breath. albuterol 2021-05 Yes [id number] 2{puff} Inhale 2 [facility] 90 0-18 Puffs ity of mcg/actuati 00:00: every 6 [place] on inhaler 00 (six) Medical hours as Branch needed for Wheezing or Shortness of Breath. albuterol 2021-05 Yes [id number] 2{puff} Inhale 2 [facility] 90 0-18 Puffs ity of mcg/actuati 00:00: every 6 [place] on inhaler 00 (six) Medical hours as Branch needed for Wheezing or Shortness of Breath. albuterol 2021-05 Yes [id number] 2{puff} Inhale 2 [facility] 90 0-18 Puffs ity of mcg/actuati 00:00: every 6 [place] on inhaler 00 (six) Medical hours as Branch needed for Wheezing or Shortness of Breath. albuterol 2021-05 Yes [id number] 2{puff} Inhale 2 [facility] 90 0-18 Puffs ity of mcg/actuati 00:00: every 6 [place] on inhaler 00 (six) Medical hours as Branch needed for Wheezing or Shortness of Breath. albuterol 2021-05 Yes [id number] 2{puff} Inhale 2 [facility] 90 0-18 Puffs ity of mcg/actuati 00:00: every 6 [place] on inhaler 00 (six) Medical hours as Branch needed for Wheezing or Shortness of Breath. albuterol 2021-05 Yes [id number] 2{puff} Inhale 2 [facility] 90 0-18 Puffs ity of mcg/actuati 00:00: every 6 [place] on inhaler 00 (six) Medical hours as Branch needed for Wheezing or Shortness of Breath. albuterol 2021-05 Yes [id number] 2{puff} Inhale 2 [facility] 90 0-18 Puffs ity of mcg/actuati 00:00: every 6 [place] on inhaler 00 (six) Medical hours as Branch needed for Wheezing or Shortness of Breath. albuterol 2021-05 Yes [id number] 2{puff} Inhale 2 [facility] 90 0-18 Puffs ity of mcg/actuati 00:00: every 6 [place] on inhaler 00 (six) Medical hours as Branch needed for Wheezing or Shortness of Breath. albuterol 2021-05 Yes [id number] 2{puff} Inhale 2 [facility] 90 0-18 Puffs ity of mcg/actuati 00:00: every 6 [place] on inhaler 00 (six) Medical hours as Branch needed for Wheezing or Shortness of Breath. albuterol 2021-05 Yes [id number] 2{puff} Inhale 2 [facility] 90 0-18 Puffs ity of mcg/actuati 00:00: every 6 [place] on inhaler 00 (six) Medical hours as Branch needed for Wheezing or Shortness of Breath. albuterol 2021-05 Yes [id number] 2{puff} Inhale 2 [facility] 90 0-18 Puffs ity of mcg/actuati 00:00: every 6 [place] on inhaler 00 (six) Medical hours as Branch needed for Wheezing or Shortness of Breath. albuterol 2021-05 Yes [id number] 2{puff} Inhale 2 [facility] 90 0-18 Puffs ity of mcg/actuati 00:00: every 6 [place] on inhaler 00 (six) Medical hours as Branch needed for Wheezing or Shortness of Breath. albuterol 2021-05 Yes [id number] 2{puff} Inhale 2 [facility] 90 0-18 Puffs ity of mcg/actuati 00:00: every 6 [place] on inhaler 00 (six) Medical hours as Branch needed for Wheezing or Shortness of Breath. albuterol 2021-05 Yes [id number] 2{puff} Inhale 2 [facility] 90 0-18 Puffs ity of mcg/actuati 00:00: every 6 [place] on inhaler 00 (six) Medical hours as Branch needed for Wheezing or Shortness of Breath. albuterol 2021-05 Yes [id number] 2{puff} Inhale 2 [facility] 90 0-18 Puffs ity of mcg/actuati 00:00: every 6 [place] on inhaler 00 (six) Medical hours as Branch needed for Wheezing or Shortness of Breath. albuterol 2021-05 Yes [id number] 2{puff} Inhale 2 [facility] 90 0-18 Puffs ity of mcg/actuati 00:00: every 6 [place] on inhaler 00 (six) Medical hours as Branch needed for Wheezing or Shortness of Breath. albuterol 2021-05 Yes [id number] 2{puff} Inhale 2 [facility] 90 0-18 Puffs ity of mcg/actuati 00:00: every 6 [place] on inhaler 00 (six) Medical hours as Branch needed for Wheezing or Shortness of Breath. albuterol 2021-05 Yes [id number] 2{puff} Inhale 2 [facility] 90 0-18 Puffs ity of mcg/actuati 00:00: every 6 [place] on inhaler 00 (six) Medical hours as Branch needed for Wheezing or Shortness of Breath. albuterol 2021-05 Yes [id number] 2{puff} Inhale 2 [facility] 90 0-18 Puffs ity of mcg/actuati 00:00: every 6 [place] on inhaler 00 (six) Medical hours as Branch needed for Wheezing or Shortness of Breath. albuterol 2021-05 Yes [id number] 2{puff} Inhale 2 [facility] 90 0-18 Puffs ity of mcg/actuati 00:00: every 6 [place] on inhaler 00 (six) Medical hours as Branch needed for Wheezing or Shortness of Breath. albuterol 2021-05 Yes [id number] 2{puff} Inhale 2 [facility] 90 0-18 Puffs ity of mcg/actuati 00:00: every 6 [place] on inhaler 00 (six) Medical hours as Branch needed for Wheezing or Shortness of Breath. albuterol 2021-05 Yes [id number] 2{puff} Inhale 2 [facility] 90 0-18 Puffs ity of mcg/actuati 00:00: every 6 [place] on inhaler 00 (six) Medical hours as Branch needed for Wheezing or Shortness of Breath. albuterol 2021-05 Yes [id number] 2{puff} Inhale 2 [facility] 90 0-18 Puffs ity of mcg/actuati 00:00: every 6 [place] on inhaler 00 (six) Medical hours as Branch needed for Wheezing or Shortness of Breath. albuterol 2021-05 Yes [id number] 2{puff} Inhale 2 [facility] 90 0-18 Puffs ity of mcg/actuati 00:00: every 6 [place] on inhaler 00 (six) Medical hours as Branch needed for Wheezing or Shortness of Breath. albuterol 2021-05 Yes [id number] 2{puff} Inhale 2 [facility] 90 0-18 Puffs ity of mcg/actuati 00:00: every 6 [place] on inhaler 00 (six) Medical hours as Branch needed for Wheezing or Shortness of Breath. albuterol 2021-05 Yes [id number] 2{puff} Inhale 2 [facility] 90 0-18 Puffs ity of mcg/actuati 00:00: every 6 [place] on inhaler 00 (six) Medical hours as Branch needed for Wheezing or Shortness of Breath. albuterol 2021-05 Yes [id number] 2{puff} Inhale 2 [facility] 90 0-18 Puffs ity of mcg/actuati 00:00: every 6 [place] on inhaler 00 (six) Medical hours as Branch needed for Wheezing or Shortness of Breath. albuterol 2021-05 Yes [id number] 2{puff} Inhale 2 [facility] 90 0-18 Puffs ity of mcg/actuati 00:00: every 6 [place] on inhaler 00 (six) Medical hours as Branch needed for Wheezing or Shortness of Breath. albuterol 2021-05 Yes [id number] 2{puff} Inhale 2 Univers 90 0-18 Puffs [...] a 24 hour period. benzonatate 2021-05- No [id number] 200mg Take 1 [facility] 200 mg 0-18 10-26 capsule by ity of capsule 00:00: 04:59 mouth 3 [place] 00 :00 (three) Medical times Branch daily as needed for Cough for up to 7 days. benzonatate 2021-05- No [id number] 200mg Take 1 [facility] 200 mg 0-18 10-26 capsule by ity of capsule 00:00: 04:59 mouth 3 [place] 00 :00 (three) Medical times Branch daily as needed for Cough for up to 7 days. benzonatate 2021-05- No [id number] 200mg Take 1 [facility] 200 mg 0-18 10-26 capsule by ity of capsule 00:00: 04:59 mouth 3 [place] 00 :00 (three) Medical times Branch daily as needed for Cough for up to 7 days. benzonatate 2021-05- No [id number] 200mg Take 1 [facility] 200 mg 0-18 10-26 capsule by ity of capsule 00:00: 04:59 mouth 3 [place] 00 :00 (three) Medical times Branch daily as needed for Cough for up to 7 days. benzonatate 2021-05- No [id number] 200mg Take 1 [facility] 200 mg 0-18 10-26 capsule by ity of capsule 00:00: 04:59 mouth 3 [place] 00 :00 (three) Medical times Branch daily as needed for Cough for up to 7 days. benzonatate 2021-05- No [id number] 200mg Take 1 [facility] 200 mg 0-18 10-26 capsule by ity of capsule 00:00: 04:59 mouth 3 [place] 00 :00 (three) Medical times [place] daily as needed for Cough for up to 7 days. SUMAtriptan 2021-05 No [id number] 50mg Take 1 Univers 50 mg 002-28 tablet by ity of tablet 00:00: 04:59 mouth [place] 00 :[place] now for 1 Medical dose. [place] SUMAtriptan 2021-05 No [id number] 50mg Take 1 [facility] 50 mg [id number] tablet by ity of tablet 00:00: 04:59 [place] 00 :[place] now for 1 Medical dose. [place] butalbital- 2021-05- No 1{tbl} 1 tablet, Univers acetaminoph 0-12 10-12 Oral, ity of en-caff 08:15: 08:09 ONCE, 1 [place] (ESGIC) 00 :00 dose, On Medical 50-325-40 [facility] Branch mg tablet 1 02/21/22 tablet at 0315, [place] butorphanol 2021-05 No 1mg 1 mg, IV U nivers (STADOL) 012 -12 Push, ity of injection 1 08:15: 07:28 ONCE, 1 [place] mg 00 :00 dose, On Medical [facility] 02/21/22 at 0315, Routine NaCl 0.9% 2021-05 No 1000mL at 999 Uni vers (NS) bolus 0-12 10-12 mL/hr, ity of infusion 07:15: 08:40 1,000 mL, [place] 1,000 mL 00 :00 IV Medical Infusion, [place] ONCE, 1 dose, On Sat02/21/22 at 0215, [place] proMETHazin 2021-05 No 12.5mg 12.5 mg, Univers e 0-12 10-12 IV ity of (PHENERGAN) 06:30: 06:38 Piggyback, [place] 12.5 mg in 00 :00 ONCE, 1 Medica l NaCl 0.9% dose, On [place] (NS) 50 mL [facility] IV 02/21/22 piggyback at 0130, [place] dexamethaso 2021-05 No 10mg 10 mg, Uni vers ne sod phos 002-21 Slow IV ity of PF 06:30: 06:38 Push, [place] injection 00 :00 ONCE, 1 Medical 10 [...] IV ity of (BENADRYL) 06:30: 06:38 [place], [place] injection 00 :00 ONCE, 1 Medical 25 mg dose, On Branch 02/21/22 at 0130, STAT FENTanyl PF 2021-05- No 50ug 50 mcg, Un sushant (SUBLIMAZE 02-18 Slow IV ity o f (PF)) 20:30: 19:44 Push, [place] injection 00 :00 ONCE, 1 Medical 50 mcg dose, On Branch [place] 02/18/22 at 1530, Routine ketorolac 2021-05 No 30mg 30 mg, Unive rs (TORADOL) 02-18 Slow IV ity of injection 20:15: 20:09 Push, [place] 30 mg 00 :00 ONCE, 1 Medical dose, On Branch [place] 02/18/22 at 1515, [place] iopamidol 2021-05 No [id number] 60mL 60 mL, Un sushant (ISOVUE 02-18 [...] 1 Medical 50 mcg dose, On Branch [place] 02/18/22 at 1300, Routine ondansetron 2021-05- No 4mg 4 mg, Slow Univers (ZOFRAN 02-18 IV Push, ity of (PF)) 17:15: 17:27 ONCE, 1 [place] injection 4 00 :00 dose, On Medi yessi mg [facility] 02/18/22 at 1215, [place] morpHINE (2 2021- No 4mg 4 mg, Slow Univers mg/mL) 01-18 IV Push, ity of injection 4 15:15: 14:49 ONCE, 1 [place] mg 00 :[place] dose, On [facility] 01/18/22 Branch at 1015, STAT ondansetron 2021- [...] [place] mg [place] :[place] dose, On [facility] 01/18/22 Branch at 0830, STAT morpHINE (4 2021- No 4mg 4 mg, Slow Univers mg/mL) 01-18 IV Push, ity of injection 4 12:30: 11:39 ONCE, 1 [place] mg 00 :[place] dose, On [facility] 01/18/22 Branch at 0730, STAT famotidine 2021-2021- No 20mg 20 mg, Univ ers (PEPCID 01-18 Slow IV ity of (PF)) 11:30: 10:52 Push, [place] injection 00 :00 ONCE, 1 Medical 20 mg dose, On [facility] 01/18/22 at 0630, [place] ondansetron 2021- No 4mg 4 mg, Slow Univers (ZOFRAN 01-18 IV Push, ity of (PF)) 11:30: 10:52 ONCE, 1 [place] injection 4 00 :00 dose, On Medi yessi mg [place] 01/18/22 Branch at 0630, [place] iodixanoL 0 2021- No [id number] 80mL 80 mL, U nivers (VISIPAQUE 01-18 [...] Indication s: acute pain ondansetron 2021-0 Yes [id number] 4mg Take 1 Univers 4 mg 01-18 [id number] tablet by ity of disintegrat 00:00: mouth [place] ing tablet 00 every 8 Medica l (eight) Branch hours as needed for Nausea and Vomiting (N/V). ibuprofen 2021-0 Yes [id number] 600mg Take 1 [facility] 600 mg 01-18 [id number] tablet by ity of tablet 00:00: mouth [place] 00 every 6 Medical (six) Branch hours as needed for Pain (scale 4-6). traMADoL 50 2022-0 Yes [id number] 50mg Take 1 Univ ers mg tablet 9-08 tablet by ity o f 00:00: mouth [place] 00 every 6 Medical (six) Branch hours as needed for Pain (scale 7-10). Indication s: acute pain ondansetron 2022-0 Yes [id number] 4mg Take 1 Univers 4 mg 9-08 [id number] tablet by ity of disintegrat 00:00: mouth [place] ing tablet 00 every 8 Medica l (eight) Branch hours as needed for Nausea and Vomiting (N/V). ibuprofen 2022-0 Yes [id number] 600mg Take 1 Univers 600 mg 9-08 [id number] tablet by ity of tablet 00:00: mouth [place] 00 every 6 Medical (six) Branch hours as needed for Pain (scale 4-6). traMADoL 50 2021-0 Yes [id number] 50mg Take 1 Univ ers mg tablet 9-08 tablet by ity o f 00:00: mouth [place] 00 every 6 Medical (six) Branch hours as needed for Pain (scale 7-10). Indication s: acute pain ondansetron 2022-0 Yes [id number] 4mg Take 1 [facility] 4 mg 9-08 [id number] tablet by ity of disintegrat 00:00: mouth [place] ing tablet 00 every 8 Medica l (eight) Branch hours as needed for Nausea and Vomiting (N/V). ibuprofen 2022-0 Yes [id number] 600mg Take 1 [facility] 600 mg 9-08 [id number] tablet by ity of tablet 00:00: mouth [place] 00 every 6 Medical (six) Branch hours as needed for Pain (scale 4-6). traMADoL 50 2-0 Yes [id number] 50mg Take 1 [facility] ers mg tablet 9-08 tablet by ity o f 00:00: mouth [place] 00 every 6 Medical (six) Branch hours as needed for Pain (scale 7-10). Indication s: acute pain ondansetron 2022-0 Yes [id number] 4mg Take 1 [facility] 4 mg 9-08 [id number] tablet by ity of disintegrat 00:00: mouth [place] ing tablet 00 every 8 Medica l (eight) Branch hours as needed for Nausea and Vomiting (N/V). ibuprofen 2022-0 Yes [id number] 600mg Take 1 [facility] 600 mg 9-08 [id number] tablet by ity of tablet 00:00: mouth [place] 00 every 6 Medical (six) Branch hours as needed for Pain (scale 4-6). traMADoL 50 2022-0 Yes [id number] 50mg Take 1 [facility] ers mg tablet 9-08 tablet by ity o f 00:00: mouth [place] 00 every 6 Medical (six) Branch hours as needed for Pain (scale 7-10). Indication s: acute pain ondansetron 2022-0 Yes [id number] 4mg Take 1 [facility] 4 mg 9-08 [id number] tablet by ity of disintegrat 00:00: mouth [place] ing tablet 00 every 8 Medica l (eight) Branch hours as needed for Nausea and Vomiting (N/V). ibuprofen 2022-0 Yes [id number] 600mg Take 1 [facility] 600 mg 9-08 [id number] tablet by ity of tablet 00:00: mouth [place] 00 every 6 Medical (six) Branch hours as needed for Pain (scale 4-6). traMADoL 50 2-0 Yes [id number] 50mg Take 1 [facility] ers mg tablet 9-08 tablet by ity o f 00:00: mouth [place] 00 every 6 Medical (six) Branch hours as needed for Pain (scale 7-10). Indication s: acute pain ondansetron 2022-0 Yes [id number] 4mg Take 1 [facility] 4 mg 9-08 [id number] tablet by ity of disintegrat 00:00: mouth [place] ing tablet 00 every 8 Medica l (eight) Branch hours as needed for Nausea and Vomiting (N/V). ibuprofen 2022-0 Yes [id number] 600mg Take 1 [facility] 600 mg 9-08 [id number] tablet by ity of tablet 00:00: mouth [place] 00 every 6 Medical (six) Branch hours as needed for Pain (scale 4-6). traMADoL 50 2022-0 Yes [id number] 50mg Take 1 [facility] ers mg tablet 9-08 tablet by ity o f 00:00: mouth [place] 00 every 6 Medical (six) Branch hours as needed for Pain (scale 7-10). Indication s: acute pain ondansetron 2022-0 Yes [id number] 4mg Take 1 [facility] 4 mg 9-08 [id number] tablet by ity of disintegrat 00:00: mouth [place] ing tablet 00 every 8 Medica l (eight) Branch hours as needed for Nausea and Vomiting (N/V). ibuprofen 2022-0 Yes [id number] 600mg Take 1 [facility] 600 mg 9- [id number] tablet by ity of tablet 00:00: mouth [place] 00 every 6 Medical (six) Branch hours as needed for Pain (scale 4-6). traMADoL 50 0 Yes [id number] 50mg Take 1 [facility] ers mg tablet 9-08 tablet by ity o f 00:00: mouth [place] 00 every 6 Medical (six) Branch hours as needed for Pain (scale 7-10). Indication s: acute pain ondansetron Yes [id number] 4mg Take 1 [facility] 4 mg 9- [id number] tablet by ity of disintegrat 00:00: mouth [place] ing tablet 00 every 8 Medica l (eight) Branch hours as needed for Nausea and Vomiting (N/V). ibuprofen Yes [id number] 600mg Take 1 [facility] 600 mg 9- [id number] tablet by ity of tablet 00:00: mouth [place] 00 every 6 Medical (six) Branch hours as needed for Pain (scale 4-6). traMADoL 50 2021- No [id number] 50mg Take 1 [facility] vers mg tablet 01-1818 tablet by ity of 00:00: 00:00 mouth [place] 00 :00 every 6 Medical (six) Branch hours as needed for Pain (scale 7-10). Indication s: acute pain ondansetron 2021- No [id number] 4mg Take 1 [facility] 4 mg -02-27 [id number] tablet by ity of disintegrat 00:00: 00:00 [place] tablet 00 :00 every 8 Medica l (eight) Branch hours as needed for Nausea and Vomiting (N/V). ibuprofen 2021- No [id number] 600mg Take 1 [facility] 600 mg 9- 10-18 [id number] tablet by ity o f tablet 00:00: 00:00 mouth [place] 00 :00 every 6 Medical (six) Branch hours as needed for Pain (scale 4-6). traMADoL 50 2021- No [id number] 50mg Take 1 [facility] vers mg tablet 01-18 10-18 tablet by ity of 00:00: 00:00 mouth [place] 00 :00 every 6 Medical (six) Branch hours as needed for Pain (scale 7-10). Indication s: acute pain ondansetron 2021-2021- No [id number] 4mg Take 1 [facility] 4 mg 01-18 [id number] tablet by ity of disintegrat 00:00: 00:00 mouth [place] tablet 00 :00 every 8 Medica l (eight) Branch hours as needed for Nausea and Vomiting (N/V). ibuprofen 2021-2021- No [id number] 600mg Take 1 [facility] 600 mg 01-18 [id number] tablet by ity o f tablet 00:00: [...] Indication s: acute pain ondansetron 2021-2021- No [id number] 4mg Take 1 [facility] 4 mg 01-18 [id number] tablet by ity of disintegrat 00:00: 00:00 mouth [place] tablet 00 :00 every 8 Medica l (eight) Branch hours as needed for Nausea and Vomiting (N/V). ibuprofen 2021- No [id number] 600mg Take 1 [facility] 600 mg 01-18 [id number] tablet by ity o f tablet 00:00: [...] Indication s: acute pain ondansetron 2021-2021- No [id number] 4mg Take 1 [facility] 4 mg 01-18 [id number] tablet by ity of disintegrat 00:00: 00:00 mouth [place] tablet 00 :00 every 8 Medica l (eight) Branch hours as needed for Nausea and Vomiting (N/V). ibuprofen 2021- No [id number] 600mg Take 1 [facility] 600 mg 01-18 [id number] tablet by ity o f tablet 00:00: 00:00 mouth [place] 00 :00 every 6 Medical (six) Branch hours as needed for Pain (scale 4-6). predniSONE 2021- No [id number] 40mg Take 2 [facility] 20 mg 01-16 tablets by ity of tablet 00:00: 04:59 mouth in [place] 00 :00 the [facility] Branch for 7 days. predniSONE 2021- No [id number] 40mg Take 2 [facility] 20 mg 01-16 tablets by ity of tablet 00:00: 04:59 mouth in [place] 00 :00 [facility] for 7 days. morpHINE (4 No 4mg 4 mg, Slow [facility] mg/mL) 01-15 IV Push, ity of injection 4 16:15: 15:28 ONCE, 1 [place] mg 00 :00 dose, On Medical [facility] 01/15/22 Branch at 1115, [place] proMETHazin No 12.5mg 12.5 mg, Univers e 01-15 IV ity of (PHENERGAN) 15:30: 15:28 [place], [place] 12.5 mg in 00 :00 ONCE, 1 Medica l NaCl 0.9% dose, On Branch (NS) 50 mL [facility] 01/15/22 IV at 1030, piggyback [place] NaCl 0.9% No 1000mL at 999 Uni vers (NS) bolus 01-15 mL/hr, ity of infusion 15:00: 15:38 1,000 mL, [place] 1,000 mL 00 :00 IV Medical Infusion, Branch ONCE, 1 dose, On [facility] 01/15/22 at 1000, [place] morpHINE (4 No 4mg 4 mg, Slow [facility] mg/mL) 01-15 IV Push, ity of injection 4 15:00: 14:37 ONCE, 1 [place] mg 00 :00 dose, On Medical [facility] 01/15/22 Branch at 1000, [place] ondansetron 2021- [...] at 0915, 1 mL proMETHazin 0 Yes [id number] 25mg Take 1 [facility] e 25 mg 9-05 tablet by ity of tablet 00:00: mouth [place] 00 every 6 Medical (six) Branch hours as needed for Nausea and Vomiting (N/V). proMETHazin 2021-0 Yes [id number] 25mg Take 1 [facility] e 25 mg 9-05 tablet by ity of tablet 00:00: mouth [place] 00 every 6 Medical (six) Branch hours as needed for Nausea and Vomiting (N/V). proMETHazin 0 Yes [id number] 25mg Take 1 [facility] e 25 mg 9-05 tablet by ity of tablet 00:00: mouth [place] 00 every 6 Medical (six) Branch hours as needed for Nausea and Vomiting (N/V). proMETHazin 2021-0 Yes [id number] 25mg Take 1 [facility] e 25 mg 9-05 tablet by ity of tablet 00:00: mouth [place] 00 every 6 Medical (six) Branch hours as needed for Nausea and Vomiting (N/V). proMETHazin 2021-0 Yes [id number] 25mg Take 1 [facility] e 25 mg 9-05 tablet by ity of tablet 00:00: mouth [place] 00 every 6 Medical (six) Branch hours as needed for Nausea and Vomiting (N/V). proMETHazin 2021-0 Yes [id number] 25mg Take 1 [facility] e 25 mg 9-05 tablet by ity of tablet 00:00: mouth [place] 00 every 6 Medical (six) Branch hours as needed for Nausea and Vomiting (N/V). proMETHazin 2021-0 Yes [id number] 25mg Take 1 [facility] e 25 mg 9-05 tablet by ity of tablet 00:00: mouth [place] 00 every 6 Medical (six) Branch hours as needed for Nausea and Vomiting (N/V). proMETHazin 0 Yes [id number] 25mg Take 1 [facility] e 25 mg 9-05 tablet by ity of tablet 00:00: mouth [place] 00 every 6 Medical (six) Branch hours as needed for Nausea and Vomiting (N/V). proMETHazin 0 Yes [id number] 25mg Take 1 [facility] e 25 mg 9-05 tablet by ity of tablet 00:00: mouth [place] 00 every 6 Medical (six) Branch hours as needed for Nausea and Vomiting (N/V). proMETHazin 2021- No [id number] 25mg Take 1 [facility] e 25 mg 9-05 10-18 tablet by ity of tablet 00:00: 00:00 mouth [place] 00 :00 every 6 Medical (six) Branch hours as needed for Nausea and Vomiting (N/V). proMETHazin 2021- No [id number] 25mg Take 1 [facility] e 25 mg 9-05 10-18 tablet by ity of tablet 00:00: 00:00 mouth [place] 00 :00 every 6 Medical (six) Branch hours as needed for Nausea and Vomiting (N/V). proMETHazin 2021- No [id number] 25mg Take 1 [facility] e 25 mg 9-05 10-18 tablet by ity of tablet 00:00: 00:00 mouth [place] 00 :00 every 6 Medical (six) Branch hours as needed for Nausea and Vomiting (N/V). proMETHazin 2021- No [id number] 25mg Take 1 [facility] e 25 mg 9-05 10-18 tablet by ity of tablet 00:00: 00:00 mouth [place] 00 :00 every 6 Medical (six) Branch hours as needed for Nausea and Vomiting (N/V). ondansetron 2021- No 4mg 4 mg, Univ ers (ZOFRAN-ODT 01-09- Oral, ity of ) 01:45: 00:56 ONCE, [...] IV ity of (BENADRYL) 23:45: 23:51 Push, [place] injection 00 :00 ONCE, 1 Medical 25 mg dose, On Branch 01/08/22 at 1845, STAT dexamethaso 2021- No 10mg 10 mg, Uni vers ne sod phos 01-08 Slow IV ity of PF 23:45: 23:50 Push, [place] injection 00 :00 ONCE, 1 Medical 10 mg dose, On Branch 01/08/22 at 1845, 1 mL ketorolac 2021- No 30mg 30 mg, Unive rs (TORADOL) 01-08 Slow IV ity of injection 23:45: 23:51 [place], [place] 30 mg 00 :00 ONCE, 1 Medical dose, On Branch 01/08/22 at 1845, [place] ondansetron Yes [id number] 4mg Take 1 [facility] 4 mg 8-29 tablet by ity of disintegrat 00:00: mouth [place] ing tablet 00 every 8 Medica l (eight) Branch hours as needed for Nausea and Vomiting (N/V). acetaminoph 0 Yes [id number] 650mg Take 1 [facility] en (TYLENOL 8-29 tablet by ity of ARTHRITIS 00:00: mouth [place] PAIN) 650 00 every 8 Medical mg CR (eight) Branch tablet hours as needed for Pain. ketorolac 0 Yes [id number] 10mg Take 1 U nivers 10 mg 8-29 tablet by ity of tablet 00:00: mouth [place] 00 every 6 Medical (six) Branch hours as needed for Pain (scale 4-6) or Pain (scale 7-10). metaxalone 0 Yes [id number] 800mg Take 1 [facility] (SKELAXIN) 8-29 tablet by ity of 800 mg 00:00: mouth in [place] tablet 00 the Medical morning Branch and 1 tablet at noon and 1 tablet in the evening. ondansetron 0 Yes [id number] 4mg Take 1 [facility] 4 mg 8-29 tablet by ity of disintegrat 00:00: mouth [place] ing tablet 00 every 8 Medica l (eight) Branch hours as needed for Nausea and Vomiting (N/V). acetaminoph 2022-0 Yes [id number] 650mg Take 1 [facility] en (TYLENOL 8-29 tablet by ity of ARTHRITIS 00:00: mouth [place] PAIN) 650 00 every 8 Medical mg CR (eight) Branch tablet hours as needed for Pain. ketorolac 2022-0 Yes [id number] 10mg Take 1 U nivers 10 mg 8-29 tablet by ity of tablet 00:00: mouth [place] 00 every 6 Medical (six) Branch hours as needed for Pain (scale 4-6) or Pain (scale 7-10). metaxalone 2-0 Yes [id number] 800mg Take 1 [facility] (SKELAXIN) 8-29 tablet by ity of 800 mg 00:00: mouth in [place] tablet 00 the Medical morning Branch and 1 tablet at noon and 1 tablet in the evening. ondansetron 2-0 Yes [id number] 4mg Take 1 [facility] 4 mg 8-29 tablet by ity of disintegrat 00:00: mouth [place] ing tablet 00 every 8 Medica l (eight) Branch hours as needed for Nausea and Vomiting (N/V). acetaminoph 2021-0 Yes [id number] 650mg Take 1 [facility] en (TYLENOL 8-29 tablet by ity of ARTHRITIS 00:00: mouth [place] PAIN) 650 00 every 8 Medical mg CR (eight) Branch tablet hours as needed for Pain. ketorolac 2022-0 Yes [id number] 10mg Take 1 U nivers 10 mg 8-29 tablet by ity of tablet 00:00: mouth [place] 00 every 6 Medical (six) Branch hours as needed for Pain (scale 4-6) or Pain (scale 7-10). metaxalone 2022-0 Yes [id number] 800mg Take 1 [facility] (SKELAXIN) 8-29 tablet by ity of 800 mg 00:00: mouth in [place] tablet 00 the Medical morning Branch and 1 tablet at noon and 1 tablet in the evening. ondansetron 2022-0 Yes [id number] 4mg Take 1 [facility] 4 mg 8-29 tablet by ity of disintegrat 00:00: mouth [place] ing tablet 00 every 8 Medica l (eight) Branch hours as needed for Nausea and Vomiting (N/V). acetaminoph 2022-0 Yes [id number] 650mg Take 1 [facility] en (TYLENOL 8-29 tablet by ity of ARTHRITIS 00:00: mouth [place] PAIN) 650 00 every 8 Medical mg CR (eight) Branch tablet hours as needed for Pain. ketorolac 2022-0 Yes [id number] 10mg Take 1 U nivers 10 mg 8-29 tablet by ity of tablet 00:00: mouth [place] 00 every 6 Medical (six) Branch hours as needed for Pain (scale 4-6) or Pain (scale 7-10). metaxalone 2022-0 Yes [id number] 800mg Take 1 [facility] (SKELAXIN) 8-29 tablet by ity of 800 mg 00:00: mouth in [place] tablet 00 the Medical morning Branch and 1 tablet at noon and 1 tablet in the evening. ondansetron 2022-0 Yes [id number] 4mg Take 1 [facility] 4 mg 8-29 tablet by ity of disintegrat 00:00: mouth [place] ing tablet 00 every 8 Medica l (eight) Branch hours as needed for Nausea and Vomiting (N/V). acetaminoph 2022-0 Yes [id number] 650mg Take 1 [facility] en (TYLENOL 8-29 tablet by ity of ARTHRITIS 00:00: mouth [place] PAIN) 650 00 every 8 Medical mg CR (eight) Branch tablet hours as needed for Pain. ketorolac 2022-0 Yes [id number] 10mg Take 1 U nivers 10 mg 8-29 tablet by ity of tablet 00:00: mouth [place] 00 every 6 Medical (six) Branch hours as needed for Pain (scale 4-6) or Pain (scale 7-10). metaxalone 2022-0 Yes [id number] 800mg Take 1 [facility] (SKELAXIN) 8-29 tablet by ity of 800 mg 00:00: mouth in [place] tablet 00 the Medical morning Branch and 1 tablet at noon and 1 tablet in the evening. ondansetron 2022-0 Yes [id number] 4mg Take 1 [facility] 4 mg 8-29 tablet by ity of disintegrat 00:00: mouth [place] ing tablet 00 every 8 Medica l (eight) Branch hours as needed for Nausea and Vomiting (N/V). acetaminoph 2022-0 Yes [id number] 650mg Take 1 [facility] en (TYLENOL 8-29 tablet by ity of ARTHRITIS 00:00: mouth [place] PAIN) 650 00 every 8 Medical mg CR (eight) Branch tablet hours as needed for Pain. ketorolac 2022-0 Yes [id number] 10mg Take 1 U nivers 10 mg 8-29 tablet by ity of tablet 00:00: mouth [place] 00 every 6 Medical (six) Branch hours as needed for Pain (scale 4-6) or Pain (scale 7-10). metaxalone 2022-0 Yes [id number] 800mg Take 1 [facility] (SKELAXIN) 8-29 tablet by ity of 800 mg 00:00: mouth in [place] tablet 00 the Medical morning Branch and 1 tablet at noon and 1 tablet in the evening. ondansetron 2-0 Yes [id number] 4mg Take 1 [facility] 4 mg 8-29 tablet by ity of disintegrat 00:00: mouth [place] ing tablet 00 every 8 Medica l (eight) Branch hours as needed for Nausea and Vomiting (N/V). acetaminoph 2022-0 Yes [id number] 650mg Take 1 [facility] en (TYLENOL 8-29 tablet by ity of ARTHRITIS 00:00: mouth [place] PAIN) 650 00 every 8 Medical mg CR (eight) Branch tablet hours as needed for Pain. ketorolac 2022-0 Yes [id number] 10mg Take 1 U nivers 10 mg 8-29 tablet by ity of tablet 00:00: mouth [place] 00 every 6 Medical (six) Branch hours as needed for Pain (scale 4-6) or Pain (scale 7-10). metaxalone 2022-0 Yes [id number] 800mg Take 1 [facility] (SKELAXIN) 8-29 tablet by ity of 800 mg 00:00: mouth in [place] tablet 00 the Medical morning Branch and 1 tablet at noon and 1 tablet in the evening. ondansetron 2022-0 Yes [id number] 4mg Take 1 [facility] 4 mg 8-29 tablet by ity of disintegrat 00:00: mouth [place] ing tablet 00 every 8 Medica l (eight) Branch hours as needed for Nausea and Vomiting (N/V). acetaminoph 2022-0 Yes [id number] 650mg Take 1 [facility] en (TYLENOL 8-29 tablet by ity of ARTHRITIS 00:00: mouth [place] PAIN) 650 00 every 8 Medical mg CR (eight) Branch tablet hours as needed for Pain. ketorolac 202-0 Yes [id number] 10mg Take 1 U nivers 10 mg 8-29 tablet by ity of tablet 00:00: mouth [place] 00 every 6 Medical (six) Branch hours as needed for Pain (scale 4-6) or Pain (scale 7-10). metaxalone 2021-0 Yes [id number] 800mg Take 1 [facility] (SKELAXIN) 8-29 tablet by ity of 800 mg 00:00: mouth in [place] tablet 00 the Medical morning Branch and 1 tablet at noon and 1 tablet in the evening. ondansetron 2021-0 Yes [id number] 4mg Take 1 [facility] 4 mg 8-29 tablet by ity of disintegrat 00:00: mouth [place] ing tablet 00 every 8 Medica l (eight) Branch hours as needed for Nausea and Vomiting (N/V). acetaminoph 2021-0 Yes [id number] 650mg Take 1 [facility] en (TYLENOL 8-29 tablet by ity of ARTHRITIS 00:00: mouth [place] PAIN) 650 00 every 8 Medical mg CR (eight) Branch tablet hours as needed for Pain. ketorolac 2021-0 Yes [id number] 10mg Take 1 U nivers 10 mg 8-29 tablet by ity of tablet 00:00: mouth [place] 00 every 6 Medical (six) Branch hours as needed for Pain (scale 4-6) or Pain (scale 7-10). metaxalone 2021-0 Yes [id number] 800mg Take 1 [facility] (SKELAXIN) 8-29 tablet by ity of 800 mg 00:00: mouth in [place] tablet 00 the Medical morning Branch and 1 tablet at noon and 1 tablet in the evening. ondansetron 2021-0 Yes [id number] 4mg Take 1 [facility] 4 mg 8-29 tablet by ity of disintegrat 00:00: mouth [place] ing tablet 00 every 8 Medica l (eight) Branch hours as needed for Nausea and Vomiting (N/V). acetaminoph 202-0 Yes [id number] 650mg Take 1 Univers en (TYLENOL 8-29 tablet by ity of ARTHRITIS 00:00: mouth [place] PAIN) 650 00 every 8 Medical mg CR (eight) Branch tablet hours as needed for Pain. ketorolac 2021-0 Yes [id number] 10mg Take 1 U nivers 10 mg 8-29 tablet by ity of tablet 00:00: mouth [place] 00 every 6 Medical (six) Branch hours as needed for Pain (scale 4-6) or Pain (scale 7-10). metaxalone 2021-0 Yes [id number] 800mg Take 1 [facility] (SKELAXIN) 8-29 tablet by ity of 800 mg 00:00: mouth in [place] tablet 00 the Medical morning Branch and 1 tablet at noon and 1 tablet in the evening. acetaminoph 2021-0 Yes [id number] 650mg Take 1 Univers en (TYLENOL 8-29 tablet by ity of ARTHRITIS 00:00: mouth [place] PAIN) 650 00 every 8 Medical mg CR (eight) Branch tablet hours as needed for Pain. acetaminoph 2021-0 Yes [id number] 650mg Take 1 Univers en (TYLENOL 8-29 tablet by ity of ARTHRITIS 00:00: mouth [place] PAIN) 650 00 every 8 Medical mg CR (eight) Branch tablet hours as needed for Pain. acetaminoph 2021-0 Yes [id number] 650mg Take 1 [facility] en (TYLENOL 8-29 tablet by ity of ARTHRITIS 00:00: mouth [place] PAIN) 650 00 every 8 Medical mg CR (eight) Branch tablet hours as needed for Pain. acetaminoph 2021-0 Yes [id number] 650mg Take 1 [facility] en (TYLENOL 8-29 tablet by ity of ARTHRITIS 00:00: mouth [place] PAIN) 650 00 every 8 Medical mg CR (eight) Branch tablet hours as needed for Pain. acetaminoph 2021-0 Yes [id number] 650mg Take 1 [facility] en (TYLENOL 8-29 tablet by ity of ARTHRITIS 00:00: mouth [place] PAIN) 650 00 every 8 Medical mg CR (eight) Branch tablet hours as needed for Pain. acetaminoph 2021-0 Yes [id number] 650mg Take 1 [facility] en (TYLENOL 8-29 tablet by ity of ARTHRITIS 00:00: mouth [place] PAIN) 650 00 every 8 Medical mg CR (eight) Branch tablet hours as needed for Pain. acetaminoph 2021-0 Yes [id number] 650mg Take 1 [facility] en (TYLENOL 8-29 tablet by ity of ARTHRITIS 00:00: mouth [place] PAIN) 650 00 every 8 Medical mg CR (eight) Branch tablet hours as needed for Pain. acetaminoph 0 Yes [id number] 650mg Take 1 [facility] en (TYLENOL 8-29 tablet by ity of ARTHRITIS 00:00: mouth [place] PAIN) 650 00 every 8 Medical mg CR (eight) Branch tablet hours as needed for Pain. acetaminoph 0 Yes [id number] 650mg Take 1 [facility] en (TYLENOL 8-29 tablet by ity of ARTHRITIS 00:00: mouth [place] PAIN) 650 00 every 8 Medical mg CR (eight) Branch tablet hours as needed for Pain. acetaminoph 0 Yes [id number] 650mg Take 1 [facility] en (TYLENOL 8-29 tablet by ity of ARTHRITIS 00:00: mouth [place] PAIN) 650 00 every 8 Medical mg CR (eight) Branch tablet hours as needed for Pain. acetaminoph 0 Yes [id number] 650mg Take 1 [facility] en (TYLENOL 8-29 tablet by ity of ARTHRITIS 00:00: mouth [place] PAIN) 650 00 every 8 Medical mg CR (eight) Branch tablet hours as needed for Pain. acetaminoph 0 Yes [id number] 650mg Take 1 [facility] en (TYLENOL 8-29 tablet by ity of ARTHRITIS 00:00: mouth [place] PAIN) 650 00 every 8 Medical mg CR (eight) Branch tablet hours as needed for Pain. acetaminoph 0 Yes [id number] 650mg Take 1 [facility] en (TYLENOL 8-29 tablet by ity of ARTHRITIS 00:00: mouth [place] PAIN) 650 00 every 8 Medical mg CR (eight) Branch tablet hours as needed for Pain. acetaminoph 0 Yes [id number] 650mg Take 1 [facility] en (TYLENOL 8-29 tablet by ity of ARTHRITIS 00:00: mouth [place] PAIN) 650 00 every 8 Medical mg CR (eight) Branch tablet hours as needed for Pain. acetaminoph 0 Yes [id number] 650mg Take 1 [facility] en (TYLENOL 8-29 tablet by ity of ARTHRITIS 00:00: mouth [place] PAIN) 650 00 every 8 Medical mg CR (eight) Branch tablet hours as needed for Pain. acetaminoph Yes [id number] 650mg Take 1 [facility] en (TYLENOL 8-29 tablet by ity of ARTHRITIS 00:00: mouth [place] PAIN) 650 00 every 8 Medical mg CR (eight) Branch tablet hours as needed for Pain. acetaminoph Yes [id number] 650mg Take 1 [facility] en (TYLENOL 8-29 tablet by ity of ARTHRITIS 00:00: mouth [place] PAIN) 650 00 every 8 Medical mg CR (eight) Branch tablet hours as needed for Pain. acetaminoph 2021- No [id number] 650mg Take 1 [facility] en (TYLENOL 8-29 11-26 tablet by it y of ARTHRITIS 00:00: 00:00 mouth [place] PAIN) 650 00 :00 every 8 Medical mg CR (eight) Branch tablet hours as needed for Pain. ondansetron 2021- No [id number] 4mg Take 1 [facility] 4 mg 8-29 10-18 tablet by ity of disintegrat 00:00: 00:00 [place] tablet 00 :00 every 8 Medica l (eight) Branch hours as needed for Nausea and Vomiting (N/V). ketorolac 2021- No [id number] 10mg Take 1 [facility] 10 mg 8-29 10-18 tablet by ity of tablet 00:00: 00:00 mouth [place] 00 :00 every 6 Medical (six) Branch hours as needed for Pain (scale 4-6) or Pain (scale 7-10). metaxalone 2021- No [id number] 800mg Take 1 [facility] (SKELAXIN) 8-29 10-18 tablet by ity of 800 mg 00:00: 00:00 mouth in [place] tablet 00 :00 the Medical morning Branch and 1 tablet at noon and 1 tablet in the evening. ondansetron 2021-2021- No [id number] 4mg Take 1 [facility] 4 mg 8-29 10-18 tablet by ity of disintegrat 00:00: 00:00 [place] tablet 00 :00 every 8 Medica l (eight) Branch hours as needed for Nausea and Vomiting (N/V). ketorolac 2021-0 2021- No [id number] 10mg Take 1 [facility] 10 mg 8-29 10-18 tablet by ity of tablet 00:00: 00:00 mouth [place] 00 :00 every 6 Medical (six) Branch hours as needed for Pain (scale 4-6) or Pain (scale 7-10). metaxalone 2022-0 2022- No [id number] 800mg Take 1 [facility] (SKELAXIN) 8-29 10-18 tablet by ity of 800 mg 00:00: 00:00 mouth in [place] tablet 00 :00 the Medical morning Branch and 1 tablet at noon and 1 tablet in the evening. ondansetron 2022-0 2022- No [id number] 4mg Take 1 [facility] 4 mg 8-29 10-18 tablet by ity of disintegrat 00:00: 00:00 [place] tablet 00 :00 every 8 Medica l (eight) Branch hours as needed for Nausea and Vomiting (N/V). ketorolac 2022-0 2022- No [id number] 10mg Take 1 [facility] 10 mg 8-29 10-18 tablet by ity of tablet 00:00: 00:00 mouth [place] 00 :00 every 6 Medical (six) Branch hours as needed for Pain (scale 4-6) or Pain (scale 7-10). metaxalone 2022-0 2022- No [id number] 800mg Take 1 [facility] (SKELAXIN) 8-29 10-18 tablet by ity of 800 mg 00:00: 00:00 mouth in [place] tablet 00 :00 the Medical morning Branch and 1 tablet at noon and 1 tablet in the evening. ondansetron 2022-0 2022- No [id number] 4mg Take 1 [facility] 4 mg 8-29 10-18 tablet by ity of disintegrat 00:00: 00:00 [place] tablet 00 :00 every 8 Medica l (eight) Branch hours as needed for Nausea and Vomiting (N/V). ketorolac 2022-0 2022- No [id number] 10mg Take 1 [facility] 10 mg 8-29 10-18 tablet by ity of tablet 00:00: 00:00 mouth [place] 00 :00 every 6 Medical (six) Branch hours as needed for Pain (scale 4-6) or Pain (scale 7-10). metaxalone 2022-0 2022- No [id number] 800mg Take 1 [facility] (SKELAXIN) 8-29 10-18 [...] mouth. ity of supp. no.8 15:08: 00:00 [place] (TRAZAMINE 46 :00 Medical ORAL) Branch diphenhydrA 0 Yes 25mg Take 25 mg Univers MINE 25 mg 12-12 by mouth ity o f capsule 13:03: every 6 [place] 04 (six) Medical hours as Branch needed for Allergies. carbamazepi 0 Yes Take by [facility] vers ne 12-12 mouth. ity of (TEGRETOL 13:03: [place] ORAL) 04 Medical Branch citalopram 0 Yes Take by [facility] ers hydrobromid 12-12 mouth. ity of e 13:03: [place] (CITALOPRAM 04 Medical ORAL) Branch ALBUTEROL 0 Yes [facility] INHALE 12-12 ity of 13:03: [place] 04 Medical Branch diphenhydrA 2021-0 Yes 25mg Take 25 mg [facility] MINE 25 mg 12-12 by mouth ity o f capsule 13:03: every 6 [place] 04 (six) Medical hours as Branch needed for Allergies. carbamazepi 2021-0 Yes Take by Uni vers ne 12-12 mouth. ity of (TEGRETOL 13:03: [place] ORAL) Medical Branch citalopram Yes Take by [facility] ers hydrobromid 8-02 mouth. ity of e 13:03: [place] (CITALOPRAM 04 Medical ORAL) Branch ALBUTEROL 0 Yes [facility] INHALE 802 ity of 13:03: Medical Branch diphenhydrA 0 Yes 25mg Take 25 mg [facility] MINE 25 mg 802 by mouth ity o f capsule 13:03: every 6 [place] [address] (six) Medical hours as Branch needed for Allergies. carbamazepi 0 Yes Take by [facility] vers ne 8-02 mouth. ity of (TEGRETOL 13:03: [place] ORAL) Medical Branch citalopram Yes Take by [facility] ers hydrobromid 8-02 mouth. ity of e 13:03: [place] (CITALOPRAM 04 Medical ORAL) Branch ALBUTEROL Yes [facility] INHALE 8 ity of 13:03: [place] [address] Medical Branch diphenhydrA Yes 25mg Take 25 mg [facility] MINE 25 mg 02 by mouth ity o f capsule 13:03: every 6 [place] [address] (six) Medical hours as Branch needed for Allergies. carbamazepi 0 Yes Take by [facility] vers ne 8-02 mouth. ity of (TEGRETOL 13:03: [place] ORAL) 04 Medical Branch citalopram Yes Take by [facility] ers hydrobromid 8-02 mouth. ity of e 13:03: [place] (CITALOPRAM 04 Medical ORAL) Branch ALBUTEROL 0 Yes [facility] INHALE 8 ity of 13:03: [place] [address] Medical Branch diphenhydrA Yes 25mg Take 25 mg [facility] MINE 25 mg 802 by mouth ity o f capsule 13:03: every 6 [place] [address] (six) Medical hours as Branch needed for Allergies. carbamazepi 0 Yes Take by [facility] vers ne 8-02 mouth. ity of (TEGRETOL 13:03: [place] ORAL) 04 Medical Branch citalopram Yes Take by [facility] ers hydrobromid 8-02 mouth. ity of e 13:03: [place] (CITALOPRAM 04 Medical ORAL) Branch ALBUTEROL 0 Yes [facility] INHALE 8-02 ity of 13:03: [place] [address] Medical Branch diphenhydrA Yes 25mg Take 25 mg [facility] MINE 25 mg 802 by mouth ity o f capsule 13:03: every 6 [place] [address] (six) Medical hours as Branch needed for Allergies. carbamazepi Yes Take by [facility] vers ne 8-02 mouth. ity of (TEGRETOL 13:03: [place] ORAL) Medical Branch citalopram Yes Take by [facility] ers hydrobromid 8-02 mouth. ity of e 13:03: [place] (CITALOPRAM 04 Medical ORAL) Branch ALBUTEROL Yes [facility] INHALE 8 ity of 13:03: [place] [address] Medical Branch diphenhydrA Yes 25mg Take 25 mg [facility] MINE 25 mg 12-12 by mouth ity o f capsule 13:03: every 6 [place] [address] (six) Medical hours as Branch needed for Allergies. carbamazepi Yes Take by [facility] vers ne 8-02 mouth. ity of (TEGRETOL 13:03: [place] ORAL) Medical Branch citalopram Yes Take by [facility] ers hydrobromid 8-02 mouth. ity of e 13:03: [place] (CITALOPRAM 04 Medical ORAL) Branch ALBUTEROL Yes [facility] INHALE 12-12 ity of 13:03: [place] [address] Medical Branch diphenhydrA Yes 25mg Take 25 mg [facility] MINE 25 mg 02 by mouth ity o f capsule 13:03: every 6 [place] [address] (six) Medical hours as Branch needed for Allergies. carbamazepi 0 Yes Take by [facility] vers ne 8-02 mouth. ity of (TEGRETOL 13:03: [place] ORAL) 04 Medical Branch citalopram Yes Take by [facility] ers hydrobromid 8-02 mouth. ity of e 13:03: [place] (CITALOPRAM 04 Medical ORAL) Branch ALBUTEROL 0 Yes [facility] INHALE 8 ity of 13:03: [place] [address] Medical Branch diphenhydrA Yes 25mg Take 25 mg [facility] MINE 25 mg 802 by mouth ity o f capsule 13:03: every 6 [place] [address] (six) Medical hours as Branch needed for Allergies. carbamazepi 0 Yes Take by [facility] vers ne 8-02 mouth. ity of (TEGRETOL 13:03: [place] ORAL) 04 Medical Branch citalopram Yes Take by [facility] ers hydrobromid 8-02 mouth. ity of e 13:03: [place] (CITALOPRAM 04 Medical ORAL) Branch ALBUTEROL Yes [facility] INHALE 8-02 ity of 13:03: [place] [address] Medical Branch diphenhydrA 0 Yes 25mg Take 25 mg [facility] MINE 25 mg 802 by mouth ity o f capsule 13:03: every 6 [place] [address] (six) Medical hours as Branch needed for Allergies. carbamazepi Yes Take by [facility] vers ne 8-02 mouth. ity of (TEGRETOL 13:03: [place] ORAL) Medical Branch citalopram Yes Take by [facility] ers hydrobromid 8-02 mouth. ity of e 13:03: [place] (CITALOPRAM 04 Medical ORAL) Branch ALBUTEROL Yes [facility] INHALE 8-02 ity of 13:03: [address] Branch diphenhydrA Yes 25mg Take 25 mg [facility] MINE 25 mg 802 by mouth ity o f capsule 13:03: every 6 [place] [address] (six) Medical hours as Branch needed for Allergies. carbamazepi Yes Take by [facility] vers ne 8-02 mouth. ity of (TEGRETOL 13:03: [place] ORAL) Medical Branch citalopram Yes Take by [facility] ers hydrobromid 8-02 mouth. ity of e 13:03: [place] (CITALOPRAM 04 Medical ORAL) Branch ALBUTEROL Yes [facility] INHALE 8-02 ity of 13:03: [place] [address] Medical Branch ALBUTEROL Yes [facility] INHALE 8-02 ity of 13:03: [place] [address] Medical Branch ALBUTEROL 0 Yes [facility] INHALE 8-02 ity of 13:03: [place] [address] Medical Branch ALBUTEROL 0 Yes [facility] INHALE 8-02 ity of 13:03: [address] Branch ALBUTEROL 0 Yes Univers INHALE 8-02 ity of 13:03: [address] ALBUTEROL Yes Univers INHALE 8-02 ity of 13:03: [address] ALBUTEROL Yes Univers INHALE 8-02 ity of 13:03: [address] ALBUTEROL Yes [facility] INHALE 8-02 ity of 13:03: [place] [facility] ALBUTEROL Yes Univers INHALE 8-02 ity of 13:03: [place] [facility] ALBUTEROL Yes Univers INHALE 8-02 ity of 13:03: [address] ALBUTEROL Yes [facility] INHALE 8-02 ity of 13:03: [address] ALBUTEROL Yes Univers INHALE 8-02 ity of 13:03: [address] ALBUTEROL Yes Univers INHALE 8-02 ity of 13:03: [address] ALBUTEROL Yes Univers INHALE 8-02 ity of 13:03: [address] ALBUTEROL Yes Univers INHALE 8-02 ity of 13:03: [address] traZODone Yes [id number] 50mg Take 1 U nivers 50 mg 8-02 tablet by ity of tablet 00:00: mouth at [place] 00 bedtime. [facility] Branch SERTraline Yes [id number] 50mg Take 1 Univers (ZOLOFT) 50 8-02 tablet by ity of mg tablet 00:00: [place] 00 the Medical morning. Branch traZODone Yes [id number] 50mg Take 1 U nivers 50 mg 8-02 tablet by ity of tablet 00:00: mouth at [place] 00 bedtime. [facility] Branch SERTraline Yes [id number] 50mg Take 1 Univers (ZOLOFT) 50 8-02 tablet by ity of mg tablet 00:00: [place] 00 the Medical morning. Branch traZODone Yes [id number] 50mg Take 1 U nivers 50 mg 8-02 tablet by ity of tablet 00:00: mouth at [place] 00 bedtime. [facility] Branch SERTraline 0 Yes [id number] 50mg Take 1 Univers (ZOLOFT) 50 8-02 tablet by ity of mg tablet 00:00: [place] 00 the Medical morning. Branch traZODone 2021-0 Yes [id number] 50mg Take 1 U nivers 50 mg 8-02 tablet by ity of tablet 00:00: mouth at [place] 00 bedtime. Medical Branch SERTraline 2021-0 Yes 50mg Take 1 Univers (ZOLOFT) 50 8-02 tablet by ity of mg tablet 00:00: mouth [place] 00 the Medical morning. Branch traZODone 2021-0 Yes [id number] 50mg Take 1 U nivers 50 mg 8-02 tablet by ity of tablet 00:00: mouth at [place] 00 bedtime. Medical Branch SERTraline 2021-0 Yes 50mg Take 1 Univers (ZOLOFT) 50 8-02 tablet by ity of mg tablet 00:00: [place] 00 the Medical morning. Branch traZODone 2021-0 Yes [id number] 50mg Take 1 U nivers 50 mg 8-02 tablet by ity of tablet 00:00: mouth at [place] 00 bedtime. Medical Branch SERTraline 2021-0 Yes [id number] 50mg Take 1 Univers (ZOLOFT) 50 8-02 tablet by ity of mg tablet 00:00: mouth [place] 00 the Medical morning. Branch traZODone 2021-0 Yes [id number] 50mg Take 1 U nivers 50 mg 8-02 tablet by ity of tablet 00:00: mouth at [place] 00 bedtime. Medical Branch SERTraline 2021-0 Yes 50mg Take 1 Univers (ZOLOFT) 50 8-02 tablet by ity of mg tablet 00:00: [place] 00 the Medical morning. Branch traZODone 2021-0 Yes [id number] 50mg Take 1 U nivers 50 mg 8-02 tablet by ity of tablet 00:00: mouth at [place] 00 bedtime. Medical Branch SERTraline 2021-0 Yes [id number] 50mg Take 1 Univers (ZOLOFT) 50 8-02 tablet by ity of mg tablet 00:00: mouth [place] 00 the Medical morning. Branch traZODone 2021-0 Yes [id number] 50mg Take 1 U nivers 50 mg 8-02 tablet by ity of tablet 00:00: mouth at [place] 00 bedtime. Medical Branch SERTraline Yes [id number] 50mg Take 1 Univers (ZOLOFT) 50 8-02 tablet by ity of mg tablet 00:00: mouth [place] 00 the Medical morning. Branch traZODone Yes [id number] 50mg Take 1 U nivers 50 mg 8-02 tablet by ity of tablet 00:00: mouth at [place] 00 bedtime. Medical Branch SERTraline Yes [id number] 50mg Take 1 Univers (ZOLOFT) 50 8-02 tablet by ity of mg tablet 00:00: mouth [place] 00 the Medical morning. Branch traZODone Yes [id number] 50mg Take 1 U nivers 50 mg 8-02 tablet by ity of tablet 00:00: mouth at [place] 00 bedtime. Medical Branch SERTraline Yes [id number] 50mg Take 1 Univers (ZOLOFT) 50 8-02 tablet by ity of mg tablet 00:00: mouth [place] 00 the Medical morning. Branch traZODone 2021- No [id number] 50mg Take 1 Univers 50 mg 8-02 10-18 tablet by ity of tablet 00:00: 00:00 mouth at [place] 00 :00 bedtime. Medical Branch SERTraline 2021- No [id number] 50mg Take 1 Univers (ZOLOFT) 50 8-02 10-18 tablet by it y of mg tablet 00:00: 00:00 mouth in [place] as 00 :00 the Medical morning. Branch traZODone 2021- No [id number] 50mg Take 1 Univers 50 mg 8-02 10-18 tablet by ity of tablet 00:00: 00:00 mouth at [place] 00 :00 bedtime. Medical Branch SERTraline 2021- No [id number] 50mg Take 1 Univers (ZOLOFT) 50 8-02 10-18 tablet by it y of mg tablet 00:00: 00:00 mouth in [place] 00 :00 the Medical morning. Branch traZODone 2021- No [id number] 50mg Take 1 [facility] 50 mg 8-02 10-18 tablet by ity of tablet 00:00: 00:00 mouth at [place] 00 :00 bedtime. Medical Branch SERTraline 2021- No [id number] 50mg Take 1 Univers (ZOLOFT) 50 8- 10-18 tablet by it y of mg tablet 00:00: 00:00 mouth in [facility] as 00 :00 the Medical morning. Branch traZODone 2021-2021- No [id number] 50mg Take 1 Univers 50 mg 8- 10-18 tablet by ity of tablet 00:00: 00:00 mouth at [place] 00 :00 bedtime. Medical Branch SERTraline 2021- No [id number] 50mg Take 1 Univers (ZOLOFT) 50 8- 10-18 tablet by it y of mg tablet 00:00: 00:00 mouth in [facility] as 00 :00 the Medical morning. Branch sulfamethox 2021- No [id number] 1{tbl} Take 1 Univers azole-trime - 08-06 tablet by it y of thoprim 00:00: 04:59 mouth in [place] (BACTRIM 00 :00 the Medical DS) 800-160 morning Branc h mg per and 1 tablet tablet in the evening. Do all this for 3 days. ibuprofen 2021-0 Yes [id number] 600mg Take 1 [facility] 600 mg 7-15 tablet by ity of tablet 00:00: mouth [place] 00 every 6 Medical (six) Branch hours as needed for Pain (scale 4-6). ibuprofen 2021-0 Yes [id number] 600mg Take 1 [facility] 600 mg 7-15 tablet by ity of tablet 00:00: mouth [place] [address] every 6 Medical (six) Branch hours as needed for Pain (scale 4-6). ibuprofen 2021-0 Yes [id number] 600mg Take 1 [facility] 600 mg 7-15 tablet by ity of tablet 00:00: mouth [place] [address] every 6 Medical (six) Branch hours as needed for Pain (scale 4-6). ibuprofen 2021-0 Yes [id number] 600mg Take 1 [facility] 600 mg 7-15 tablet by ity of tablet 00:00: mouth [place] [address] every 6 Medical (six) Branch hours as needed for Pain (scale 4-6). ibuprofen 2021-0 Yes [id number] 600mg Take 1 [facility] 600 mg 7-15 tablet by ity of tablet 00:00: mouth [place] 00 every 6 Medical (six) Branch hours as needed for Pain (scale 4-6). ibuprofen 2-0 Yes [id number] 600mg Take 1 [facility] 600 mg 7-15 tablet by ity of tablet 00:00: mouth [place] 00 every 6 Medical (six) Branch hours as needed for Pain (scale 4-6). ibuprofen 2-0 Yes [id number] 600mg Take 1 [facility] 600 mg 7-15 tablet by ity of tablet 00:00: mouth [place] 00 every 6 Medical (six) Branch hours as needed for Pain (scale 4-6). ibuprofen 2021-0 Yes [id number] 600mg Take 1 [facility] 600 mg 7-15 tablet by ity of tablet 00:00: mouth [place] 00 every 6 Medical (six) Branch hours as needed for Pain (scale 4-6). ibuprofen 2021-0 Yes [id number] 600mg Take 1 [facility] 600 mg 7-15 tablet by ity of tablet 00:00: mouth [place] 00 every 6 Medical (six) Branch hours as needed for Pain (scale 4-6). ibuprofen 2021-0 Yes [id number] 600mg Take 1 [facility] 600 mg 7-15 tablet by ity of tablet 00:00: mouth [place] 00 every 6 Medical (six) Branch hours as needed for Pain (scale 4-6). ibuprofen 2021-0 Yes [id number] 600mg Take 1 [facility] 600 mg 7-15 tablet by ity of tablet 00:00: mouth [place] 00 every 6 Medical (six) Branch hours as needed for Pain (scale 4-6). ibuprofen 202-0 2022- No [id number] 600mg Take 1 [facility] 600 mg 7-15 10-18 tablet by ity of tablet 00:00: 00:00 mouth [place] 00 :00 every 6 Medical (six) Branch hours as needed for Pain (scale 4-6). ibuprofen 2022-0 2022- No [id number] 600mg Take 1 [facility] 600 mg 7-15 10-18 tablet by ity of tablet 00:00: 00:00 mouth [place] 00 :00 every 6 Medical (six) Branch hours as needed for Pain (scale 4-6). ibuprofen 2022-0 2022- No [id number] 600mg Take 1 [facility] 600 mg 7-15 10-18 tablet by ity of tablet 00:00: 00:00 mouth [place] 00 :00 every 6 Medical (six) Branch hours as needed for Pain (scale 4-6). ibuprofen 2021- No [id number] 600mg Take 1 [facility] 600 mg 7-15 [...] Indication s: acute pain bromphenira 0 Yes [id number] 5mL Take 5 mL Univers mine-pseudo 7-09 by mouth 4 it y of ephedrine-D 00:00: (four) [place] (BROMFED 00 times Medical DM) 2-30-10 daily as Bran ch mg/5 mL needed for syrup Congestion /Allergies or Cough. naproxen 2021-0 Yes [id number] 500mg Take 1 U nivers 500 mg 7-09 tablet by ity of tablet 00:00: mouth [place] 00 every 8 Medical (eight) Branch hours as needed for Pain (scale 4-6). cyclobenzap 2021-0 Yes [id number] 10mg Take 1 Univers rine 10 mg 7-09 tablet by ity of tablet 00:00: mouth at [place] 00 bedtime as Medical needed for Branch Muscle Spasms. bromphenira 2021-0 Yes [id number] 5mL Take 5 mL [facility] mine-pseudo 7-09 by mouth 4 it y of ephedrine-D 00:00: (four) [place] M (BROMFED 00 times Medical DM) 2-30-10 daily as Bran ch mg/5 mL needed for syrup Congestion /Allergies or Cough. naproxen 2021-0 Yes [id number] 500mg Take 1 U nivers 500 mg 7-09 tablet by ity of tablet 00:00: mouth [place] 00 every 8 Medical (eight) Branch hours as needed for Pain (scale 4-6). cyclobenzap 2021-0 Yes [id number] 10mg Take 1 Univers rine 10 mg 7-09 tablet by ity of tablet 00:00: mouth at [place] 00 bedtime as Medical needed for Branch Muscle Spasms. bromphenira 2021-0 Yes [id number] 5mL Take 5 mL [facility] mine-pseudo 7-09 by mouth 4 it y of ephedrine-D 00:00: (four) [place] M (BROMFED 00 times Medical DM) 2-30-10 daily as Bran ch mg/5 mL needed for syrup Congestion /Allergies or Cough. naproxen 2021-0 Yes [id number] 500mg Take 1 U nivers 500 mg 7-09 tablet by ity of tablet 00:00: mouth [place] 00 every 8 Medical (eight) Branch hours as needed for Pain (scale 4-6). cyclobenzap 2021-0 Yes [id number] 10mg Take 1 Univers rine 10 mg 7-09 tablet by ity of tablet 00:00: mouth at [place] 00 bedtime as Medical needed for Branch Muscle Spasms. bromphenira 2021-0 Yes [id number] 5mL Take 5 mL [facility] mine-pseudo 7-09 by mouth 4 it y of ephedrine-D 00:00: (four) [place] M (BROMFED 00 times Medical DM) 2-30-10 daily as Bran ch mg/5 mL needed for syrup Congestion /Allergies or Cough. naproxen 2021-0 Yes [id number] 500mg Take 1 U nivers 500 mg 7-09 tablet by ity of tablet 00:00: mouth [place] 00 every 8 Medical (eight) Branch hours as needed for Pain (scale 4-6). cyclobenzap 2021-0 Yes [id number] 10mg Take 1 Univers rine 10 mg 7-09 tablet by ity of tablet 00:00: mouth at [place] 00 bedtime as Medical needed for Branch Muscle Spasms. bromphenira 2021-0 Yes [id number] 5mL Take 5 mL [facility] mine-pseudo 7-09 by mouth 4 it y of ephedrine-D 00:00: (four) [place] M (BROMFED 00 times Medical DM) 2-30-10 daily as Bran ch mg/5 mL needed for syrup Congestion /Allergies or Cough. naproxen 2021-0 Yes [id number] 500mg Take 1 U nivers 500 mg 7-09 tablet by ity of tablet 00:00: mouth [place] 00 every 8 Medical (eight) Branch hours as needed for Pain (scale 4-6). cyclobenzap 2022-0 Yes [id number] 10mg Take 1 Univers rine 10 mg 7-09 tablet by ity of tablet 00:00: mouth at [place] 00 bedtime as Medical needed for Branch Muscle Spasms. bromphenira 2022-0 Yes [id number] 5mL Take 5 mL Univers mine-pseudo 7-09 by mouth 4 it y of ephedrine-D 00:00: (four) [place] M (BROMFED 00 times Medical DM) 2-30-10 daily as Bran ch mg/5 mL needed for syrup Congestion /Allergies or Cough. naproxen 2022-0 Yes [id number] 500mg Take 1 U nivers 500 mg 7-09 tablet by ity of tablet 00:00: mouth [place] 00 every 8 Medical (eight) Branch hours as needed for Pain (scale 4-6). cyclobenzap 2-0 Yes [id number] 10mg Take 1 Univers rine 10 mg 7-09 tablet by ity of tablet 00:00: mouth at [place] 00 bedtime as Medical needed for Branch Muscle Spasms. bromphenira 2-0 Yes [id number] 5mL Take 5 mL [facility] mine-pseudo 7-09 by mouth 4 it y of ephedrine-D 00:00: (four) [place] M (BROMFED 00 times Medical DM) 2-30-10 daily as Bran ch mg/5 mL needed for syrup Congestion /Allergies or Cough. naproxen 2022-0 Yes [id number] 500mg Take 1 U nivers 500 mg 7-09 tablet by ity of tablet 00:00: mouth [place] 00 every 8 Medical (eight) Branch hours as needed for Pain (scale 4-6). cyclobenzap 2022-0 Yes [id number] 10mg Take 1 Univers rine 10 mg 7-09 tablet by ity of tablet 00:00: mouth at [place] 00 bedtime as Medical needed for Branch Muscle Spasms. bromphenira 2022-0 Yes [id number] 5mL Take 5 mL [facility] mine-pseudo 7-09 by mouth 4 it y of ephedrine-D 00:00: (four) [place] M (BROMFED 00 times Medical DM) 2-30-10 daily as Bran ch mg/5 mL needed for syrup Congestion /Allergies or Cough. naproxen 2022-0 Yes [id number] 500mg Take 1 U nivers 500 mg 7-09 tablet by ity of tablet 00:00: mouth [place] 00 every 8 Medical (eight) Branch hours as needed for Pain (scale 4-6). cyclobenzap 2022-0 Yes [id number] 10mg Take 1 Univers rine 10 mg 7-09 tablet by ity of tablet 00:00: mouth at [place] 00 bedtime as Medical needed for Branch Muscle Spasms. bromphenira 2022-0 Yes [id number] 5mL Take 5 mL [facility] mine-pseudo 7-09 by mouth 4 it y of ephedrine-D 00:00: (four) [place] M (BROMFED 00 times Medical DM) 2-30-10 daily as Bran ch mg/5 mL needed for syrup Congestion /Allergies or Cough. naproxen 2-0 Yes [id number] 500mg Take 1 U nivers 500 mg 7-09 tablet by ity of tablet 00:00: mouth [place] 00 every 8 Medical (eight) Branch hours as needed for Pain (scale 4-6). cyclobenzap 2-0 Yes [id number] 10mg Take 1 Univers rine 10 mg 7-09 tablet by ity of tablet 00:00: mouth at [place] 00 bedtime as Medical needed for Branch Muscle Spasms. bromphenira 2-0 Yes [id number] 5mL Take 5 mL [facility] mine-pseudo 7-09 by mouth 4 it y of ephedrine-D 00:00: (four) [place] M (BROMFED 00 times Medical DM) 2-30-10 daily as Bran ch mg/5 mL needed for syrup Congestion /Allergies or Cough. naproxen 2022-0 Yes [id number] 500mg Take 1 U nivers 500 mg 7-09 tablet by ity of tablet 00:00: mouth [place] 00 every 8 Medical (eight) Branch hours as needed for Pain (scale 4-6). cyclobenzap 2022-0 Yes [id number] 10mg Take 1 Univers rine 10 mg 7-09 tablet by ity of tablet 00:00: mouth at [place] 00 bedtime as Medical needed for Branch Muscle Spasms. bromphenira 2022-0 Yes [id number] 5mL Take 5 mL [facility] mine-pseudo 7-09 by mouth 4 it y of ephedrine-D 00:00: (four) [place] (BROMFED 00 times Medical DM) 2-30-10 daily as Bran ch mg/5 mL needed for syrup Congestion /Allergies or Cough. naproxen 2021-0 Yes [id number] 500mg Take 1 U nivers 500 mg 7-09 tablet by ity of tablet 00:00: mouth [place] 00 every 8 Medical (eight) Branch hours as needed for Pain (scale 4-6). cyclobenzap 2021-0 Yes [id number] 10mg Take 1 Univers rine 10 mg 7-09 tablet by ity of tablet 00:00: mouth at [place] 00 bedtime as Medical needed for Branch Muscle Spasms. bromphenira 0 Yes [id number] 5mL Take 5 mL [facility] mine-pseudo 7-09 by mouth 4 it y of ephedrine-D 00:00: (four) [place] (BROMFED 00 times Medical DM) 2-30-10 daily as Bran ch mg/5 mL needed for syrup Congestion /Allergies or Cough. bromphenira 2021-0 Yes [id number] 5mL Take 5 mL [facility] mine-pseudo 7-09 by mouth 4 it y of ephedrine-D 00:00: (four) [place] (BROMFED 00 times Medical DM) 2-30-10 daily as Bran ch mg/5 mL needed for syrup Congestion /Allergies or Cough. bromphenira 2021-0 Yes [id number] 5mL Take 5 mL [facility] mine-pseudo 7-09 by mouth 4 it y of ephedrine-D 00:00: (four) [place] (BROMFED 00 times Medical DM) 2-30-10 daily as Bran ch mg/5 mL needed for syrup Congestion /Allergies or Cough. bromphenira 2021-0 Yes [id number] 5mL Take 5 mL [facility] mine-pseudo 7-09 by mouth 4 it y of ephedrine-D 00:00: (four) [place] (BROMFED 00 times Medical DM) 2-30-10 daily as Bran ch mg/5 mL needed for syrup Congestion /Allergies or Cough. bromphenira 2022-0 Yes [id number] 5mL Take 5 mL [facility] mine-pseudo 7-09 by mouth 4 it y of ephedrine-D 00:00: (four) [place] (BROMFED 00 times Medical DM) 2-30-10 daily as Bran ch mg/5 mL needed for syrup Congestion /Allergies or Cough. bromphenira 2021-0 Yes [id number] 5mL Take 5 mL [facility] mine-pseudo 7-09 by mouth 4 it y of ephedrine-D 00:00: (four) [place] M (BROMFED 00 times Medical DM) 2-30-10 daily as Bran ch mg/5 mL needed for syrup Congestion /Allergies or Cough. bromphenira 2021-0 Yes [id number] 5mL Take 5 mL [facility] mine-pseudo 7-09 by mouth 4 it y of ephedrine-D 00:00: (four) [place] (BROMFED 00 times Medical DM) 2-30-10 daily as Bran ch mg/5 mL needed for syrup Congestion /Allergies or Cough. bromphenira 2021-0 Yes [id number] 5mL Take 5 mL [facility] mine-pseudo 7-09 by mouth 4 it y of ephedrine-D 00:00: (four) [place] (BROMFED 00 times Medical DM) 2-30-10 daily as Bran ch mg/5 mL needed for syrup Congestion /Allergies or Cough. bromphenira 2021-0 Yes [id number] 5mL Take 5 mL [facility] mine-pseudo 7-09 by mouth 4 it y of ephedrine-D 00:00: (four) [place] (BROMFED 00 times Medical DM) 2-30-10 daily as Bran ch mg/5 mL needed for syrup Congestion /Allergies or Cough. bromphenira 2021-0 Yes [id number] 5mL Take 5 mL [facility] mine-pseudo 7-09 by mouth 4 it y of ephedrine-D 00:00: (four) [place] (BROMFED 00 times Medical DM) 2-30-10 daily as Bran ch mg/5 mL needed for syrup Congestion /Allergies or Cough. bromphenira 2-0 Yes [id number] 5mL Take 5 mL [facility] mine-pseudo 7-09 by mouth 4 it y of ephedrine-D 00:00: (four) [place] (BROMFED 00 times Medical DM) 2-30-10 daily as Bran ch mg/5 mL needed for syrup Congestion /Allergies or Cough. bromphenira 2021-0 Yes [id number] 5mL Take 5 mL [facility] mine-pseudo 7-09 by mouth 4 it y of ephedrine-D 00:00: (four) [place] (BROMFED 00 times Medical DM) 2-30-10 daily as Bran ch mg/5 mL needed for syrup Congestion /Allergies or Cough. bromphenira 2021-0 Yes [id number] 5mL Take 5 mL [facility] mine-pseudo 7-09 by mouth 4 it y of ephedrine-D 00:00: (four) [place] (BROMFED 00 times Medical DM) 2-30-10 daily as Bran ch mg/5 mL needed for syrup Congestion /Allergies or Cough. bromphenira 2021-0 Yes [id number] 5mL Take 5 mL [facility] mine-pseudo 7-09 by mouth 4 it y of ephedrine-D 00:00: (four) [place] (BROMFED 00 times Medical DM) 2-30-10 daily as Bran ch mg/5 mL needed for syrup Congestion /Allergies or Cough. bromphenira 2021- No [id number] 5mL Take 5 mL [facility] mine-pseudo 7- 11-12 by mouth 4 i ty of ephedrine-D 00:00: 00:00 (four) [place] M (BROMFED 00 :00 times Medical DM) 2-30-10 daily as Bran ch mg/5 mL needed for syrup Congestion /Allergies or Cough. naproxen 2021- No [id number] 500mg Take 1 [facility] 500 mg 7- 10-18 tablet by ity of tablet 00:00: 00:00 mouth [place] 00 :00 every 8 Medical (eight) Branch hours as needed for Pain (scale 4-6). cyclobenzap 2021-2021- No [id number] 10mg Take 1 [facility] rine 10 mg 7- 10-18 tablet by ity of tablet 00:00: 00:00 mouth at [place] 00 :00 bedtime as Medical needed for Branch Muscle Spasms. naproxen 2021-0 2021- No [id number] 500mg Take 1 [facility] 500 mg 7- 10-18 tablet by ity of tablet 00:00: 00:00 mouth [place] 00 :00 every 8 Medical (eight) Branch hours as needed for Pain (scale 4-6). cyclobenzap No [id number] 10mg Take 1 [facility] rine 10 mg 11-18-18 tablet by ity of tablet 00:00: 00:00 mouth at [place] 00 :00 bedtime as Medical needed for Branch Muscle Spasms. naproxen No [id number] 500mg Take 1 [facility] 500 mg 11-18-18 tablet by ity of tablet 00:00: 00:00 mouth [place] 00 :00 every 8 Medical (eight) Branch hours as needed for Pain (scale 4-6). cyclobenzap No [id number] 10mg Take 1 [facility] rine 10 mg 11-1818 tablet by ity of tablet 00:00: 00:00 mouth at [place] 00 :00 bedtime as Medical needed for Branch Muscle Spasms. naproxen No [id number] 500mg Take 1 [facility] 500 mg 11-1818 tablet by ity of tablet 00:00: 00:00 mouth [place] 00 :00 every 8 Medical (eight) Branch hours as needed for Pain (scale 4-6). cyclobenzap No [id number] 10mg Take 1 [facility] rine 10 mg 11-1818 tablet by ity of tablet 00:00: 00:00 mouth at [place] 00 :00 bedtime as Medical needed for Branch Muscle Spasms. ibuprofen Yes [id number] 605mg Take 30.25 [facility] 100 mg/5 mL 6-15 mL by ity of oral 00:00: mouth [place] suspension 00 every 6 Medica l (six) Branch hours as needed for Pain (scale 4-6) or Temp > 38.5 C. ibuprofen 0 Yes [id number] 605mg Take 30.25 [facility] 100 mg/5 mL 6-15 mL by ity of oral 00:00: mouth [place] suspension 00 every 6 Medica l (six) Branch hours as needed for Pain (scale 4-6) or Temp > 38.5 C. ibuprofen Yes [id number] 605mg Take 30.25 [facility] 100 mg/5 mL 6-15 mL by ity of oral 00:00: mouth [place] suspension 00 every 6 Medica l (six) Branch hours as needed for Pain (scale 4-6) or Temp > 38.5 C. ibuprofen 2022-0 Yes [id number] 605mg Take 30.25 [facility] 100 mg/5 mL 6-15 mL by ity of oral 00:00: mouth [place] suspension 00 every 6 Medica l (six) Branch hours as needed for Pain (scale 4-6) or Temp > 38.5 C. ibuprofen 2022-0 Yes [id number] 605mg Take 30.25 [facility] 100 mg/5 mL 6-15 mL by ity of oral 00:00: mouth [place] suspension 00 every 6 Medica l (six) Branch hours as needed for Pain (scale 4-6) or Temp > 38.5 C. ibuprofen 2022-0 Yes [id number] 605mg Take 30.25 [facility] 100 mg/5 mL 6-15 mL by ity of oral 00:00: mouth [place] suspension 00 every 6 Medica l (six) Branch hours as needed for Pain (scale 4-6) or Temp > 38.5 C. ibuprofen 2022-0 Yes [id number] 605mg Take 30.25 [facility] 100 mg/5 mL 6-15 mL by ity of oral 00:00: mouth [place] suspension 00 every 6 Medica l (six) Branch hours as needed for Pain (scale 4-6) or Temp > 38.5 C. ibuprofen 2022-0 Yes [id number] 605mg Take 30.25 [facility] 100 mg/5 mL 6-15 mL by ity of oral 00:00: mouth [place] suspension 00 every 6 Medica l (six) Branch hours as needed for Pain (scale 4-6) or Temp > 38.5 C. ibuprofen 2022-0 Yes [id number] 605mg Take 30.25 [facility] 100 mg/5 mL 6-15 mL by ity of oral 00:00: mouth [place] suspension 00 every 6 Medica l (six) Branch hours as needed for Pain (scale 4-6) or Temp > 38.5 C. ibuprofen 2022-0 Yes [id number] 605mg Take 30.25 [facility] 100 mg/5 mL 6-15 mL by ity of oral 00:00: mouth [place] suspension 00 every 6 Medica l (six) Branch hours as needed for Pain (scale 4-6) or Temp > 38.5 C. ibuprofen Yes [id number] 605mg Take 30.25 [facility] 100 mg/5 mL 6-15 mL by ity of oral 00:00: mouth [place] suspension 00 every 6 Medica l (six) Branch hours as needed for Pain (scale 4-6) or Temp > 38.5 C. ibuprofen 2021- No [id number] 605mg Take 30.25 [facility] 100 mg/5 mL 6-15 10-18 mL by ity of oral 00:00: 00:00 mouth [place] suspension 00 :00 every 6 Medica l (six) Branch hours as needed for Pain (scale 4-6) or Temp > 38.5 C. ibuprofen 2021- No [id number] 605mg Take 30.25 [facility] 100 mg/5 mL 6-15 10-18 mL by ity of oral 00:00: 00:00 mouth [place] suspension 00 :00 every 6 Medica l (six) Branch hours as needed for Pain (scale 4-6) or Temp > 38.5 C. ibuprofen 2021- No [id number] 605mg Take 30.25 [facility] 100 mg/5 mL 6-15 10-18 mL by ity of oral 00:00: 00:00 mouth [place] suspension 00 :00 every 6 Medica l (six) Branch hours as needed for Pain (scale 4-6) or Temp > 38.5 C. ibuprofen 2021- No [id number] 605mg Take 30.25 [facility] 100 mg/5 mL 6-15 10-18 mL by ity of oral 00:00: 00:00 mouth [place] suspension 00 :00 every 6 Medica l (six) Branch hours as needed for Pain (scale 4-6) or Temp > 38.5 C. acetaminoph 2- No [id number] 608mg Take 19 mL [facility] en 160 mg/5 6-15 08-02 by mouth ity of mL liquid 00:00: 00:00 [place] 6 [place] 00 :[place] (six) Medical hours as Branch needed for Fever. DULoxetine 0 Yes [facility] 60 mg 5-27 ity of capsule 00:00: [place] 00 Medical Branch DULoxetine 2-0 Yes [facility] 60 mg 5-27 ity of capsule 00:00: [place] 00 Medical Branch DULoxetine 2-0 Yes [facility] 60 mg 5-27 ity of capsule 00:00: [place] 00 Medical Branch DULoxetine 2-0 Yes [facility] 60 mg 5-27 ity of capsule 00:00: [place] [address] Medical Branch DULoxetine 2-0 Yes [facility] 60 mg 5-27 ity of capsule 00:00: [place] [address] Medical Branch DULoxetine 2-0 Yes [facility] 60 mg 5-27 ity of capsule 00:00: [place] [address] Medical Branch DULoxetine 2-0 Yes [facility] 60 mg 5-27 ity of capsule 00:00: [place] [address] Medical Branch DULoxetine 2-0 Yes [facility] 60 mg 5-27 ity of capsule 00:00: [place] [address] Medical Branch DULoxetine 2-0 Yes [facility] 60 mg 5-27 ity of capsule 00:00: [place] [address] Medical Branch DULoxetine 2-0 Yes [facility] 60 mg 5-27 ity of capsule 00:00: [place] [address] Medical Branch DULoxetine 2-0 Yes [facility] 60 mg 5-27 ity of capsule 00:00: [place] 00 Medical Branch DULoxetine 2021-0 2022- No [facility] 60 mg 5-27 10-18 ity of capsule 00:00: 00:00 [place] 00 :00 Medical Branch DULoxetine 2-0 2- No [facility] 60 mg 5-27 10-18 ity of capsule 00:00: 00:00 [place] 00 :00 Medical Branch DULoxetine 2-0 2022- No [facility] 60 mg 5-27 10-18 ity of capsule 00:00: 00:00 [place] 00 :00 Medical Branch DULoxetine 2-0 2022- No [facility] 60 mg 5-27 10-18 ity of capsule 00:00: 00:00 [place] 00 :00 Medical Branch traZODone 2021-0 2- No [facility] 50 mg 5-27 08-02 ity of tablet 00:00: 00:00 [place] 00 :00 Medical Branch mometasone 2021-0 Yes [id number] 1{spray Use 1 [facility] 50 5-19 } [place] in ity of mcg/actuati 00:00: each [place] on nasal 00 nostril 2 Medica l spray (two) Branch times daily. mometasone 2021-0 Yes [id number] 1{spray Use 1 [facility] 50 5-19 } [place] in ity of mcg/actuati 00:00: each [place] on nasal 00 nostril 2 Medica l spray (two) Branch times daily. mometasone 2021-0 Yes [id number] 1{spray Use 1 [facility] 50 5-19 } [place] in ity of mcg/actuati 00:00: each [place] on nasal 00 nostril 2 Medica l spray (two) Branch times daily. mometasone 2021-0 Yes [id number] 1{spray Use 1 [facility] 50 5-19 } [place] in ity of mcg/actuati 00:00: each [place] on nasal 00 nostril 2 Medica l spray (two) Branch times daily. mometasone 2021-0 Yes [id number] 1{spray Use 1 [facility] 50 5-19 } [place] in ity of mcg/actuati 00:00: each [place] on nasal 00 nostril 2 Medica l spray (two) Branch times daily. mometasone 2021-0 Yes [id number] 1{spray Use 1 [facility] 50 5-19 } [place] in ity of mcg/actuati 00:00: each [place] on nasal 00 nostril 2 Medica l spray (two) Branch times daily. mometasone 2021-0 Yes [id number] 1{spray Use 1 [facility] 50 5-19 } [place] in ity of mcg/actuati 00:00: each [place] on nasal 00 nostril 2 Medica l spray (two) Branch times daily. mometasone 2021-0 Yes [id number] 1{spray Use 1 [facility] 50 5-19 } [place] in ity of mcg/actuati 00:00: each [place] on nasal 00 nostril 2 Medica l spray (two) Branch times daily. mometasone 2021-0 Yes [id number] 1{spray Use 1 [facility] 50 5-19 } [place] in ity of mcg/actuati 00:00: each [place] on nasal 00 nostril 2 Medica l spray (two) Branch times daily. mometasone 2021-0 Yes [id number] 1{spray Use 1 [facility] 50 5-19 } [place] in ity of mcg/actuati 00:00: each [place] on nasal 00 nostril 2 Medica l spray (two) Branch times daily. mometasone Yes [id number] 1{spray Use 1 [facility] 50 5-19 } [place] in ity of mcg/actuati 00:00: each [place] on nasal 00 nostril 2 Medica l spray (two) Branch times daily. mometasone 2021- No [id number] 1{spray Use 1 [facility] 50 5-19 10-18 } [place] in ity of mcg/actuati 00:00: 00:00 each [place] on nasal 00 :00 nostril 2 Medica l spray (two) Branch times daily. mometasone 2021- No [id number] 1{spray Use 1 [facility] 50 5-19 10-18 } [place] in ity of mcg/actuati 00:00: 00:00 each [place] on nasal 00 :00 nostril 2 Medica l spray (two) Branch times daily. mometasone 2021- No [id number] 1{spray Use 1 [facility] 50 5-19 10-18 } [place] in ity of mcg/actuati 00:00: 00:00 each [place] on nasal 00 :00 nostril 2 Medica l spray (two) Branch times daily. mometasone 2021- No [id number] 1{spray Use 1 [facility] 50 5-19 10-18 } [place] in ity of mcg/actuati 00:00: 00:00 each [place] on nasal 00 :00 nostril 2 Medica l spray (two) Branch times daily. cetirizine Yes [id number] 10mg Take 1 U nivers (ZYRTEC) 10 5-16 tablet by ity of mg tablet 00:00: mouth [place] 00 daily. Medical Branch cetirizine Yes [id number] 10mg Take 1 [facility] nivers (ZYRTEC) 10 5-16 tablet by ity of mg tablet 00:00: mouth 00 daily. Medical Branch cetirizine Yes [id number] 10mg Take 1 [facility] nivers (ZYRTEC) 10 5-16 tablet by ity of mg tablet 00:00: mouth [place] 00 daily. Medical Branch cetirizine Yes [id number] 10mg Take 1 U nivers (ZYRTEC) 10 5-16 tablet by ity of mg tablet 00:00: mouth [place] 00 daily. [facility] Branch cetirizine Yes [id number] 10mg Take 1 U nivers (ZYRTEC) 10 5-16 tablet by ity of mg tablet 00:00: mouth [place] 00 daily. [facility] Branch cetirizine Yes [id number] 10mg Take 1 U nivers (ZYRTEC) 10 5-16 tablet by ity of mg tablet 00:00: mouth [place] 00 daily. [facility] Branch cetirizine Yes [id number] 10mg Take 1 U nivers (ZYRTEC) 10 5-16 tablet by ity of mg tablet 00:00: mouth [place] 00 daily. [facility] Branch cetirizine Yes [id number] 10mg Take 1 U nivers (ZYRTEC) 10 5-16 tablet by ity of mg tablet 00:00: mouth [place] 00 daily. [facility] Branch cetirizine Yes [id number] 10mg Take 1 U nivers (ZYRTEC) 10 5-16 tablet by ity of mg tablet 00:00: mouth [place] 00 daily. [facility] Branch cetirizine Yes [id number] 10mg Take 1 U nivers (ZYRTEC) 10 5-16 tablet by ity of mg tablet 00:00: mouth [place] 00 daily. [facility] Branch cetirizine Yes [id number] 10mg Take 1 U nivers (ZYRTEC) 10 5-16 tablet by ity of mg tablet 00:00: mouth [place] 00 daily. [facility] Branch cetirizine 2021- No [id number] 10mg Take 1 [facility] (ZYRTEC) 10 5-16 10-18 tablet by it y of mg tablet 00:00: 00:00 mouth [place] 00 :00 daily. [facility] Branch cetirizine 2021- No [id number] 10mg Take 1 [facility] (ZYRTEC) 10 5-16 10-18 tablet by it y of mg tablet 00:00: 00:00 mouth [place] 00 :00 daily. [facility] Branch cetirizine 2021- No [id number] 10mg Take 1 [facility] (ZYRTEC) 10 5-16 10-18 tablet by it y of mg tablet 00:00: 00:00 mouth [place] 00 :00 daily. Medical Branch cetirizine 2-0 2022- No [id number] 10mg Take 1 [facility] (ZYRTEC) 10 5-16 10-18 tablet by it y of mg tablet 00:00: 00:00 mouth [place] 00 :00 daily. Medical Branch DULoxetine 2022-0 Yes [facility] 30 mg 5-09 ity of capsule 00:00: [place] 00 Medical Branch gabapentin 2022-0 Yes [facility] 300 mg 5-09 ity of capsule 00:00: [place] 00 Medical Branch ondansetron 2022-0 Yes Un[facility] s 4 mg tablet 5-09 ity of 00:00: [place] 00 Medical Branch DULoxetine 2022-0 Yes [facility] 30 mg 5-09 ity of capsule 00:00: [place] 00 Medical Branch gabapentin 2022-0 Yes [facility] 300 mg 5-09 ity of capsule 00:00: [place] 00 Medical Branch ondansetron 2022-0 Yes Univer s 4 mg tablet 5-09 ity of 00:00: [place] 00 Medical Branch DULoxetine 2022-0 Yes [facility] 30 mg 5-09 ity of capsule 00:00: [place] [address] Medical Branch gabapentin 2022-0 Yes [facility] 300 mg 5-09 ity of capsule 00:00: [place] [address] Medical Branch ondansetron 2022-0 Yes Univer s 4 mg tablet 5-09 ity of 00:00: [place] 00 Medical Branch DULoxetine 2022-0 Yes [facility] 30 mg 5-09 ity of capsule 00:00: [place] [address] Medical Branch gabapentin 2022-0 Yes [facility] 300 mg 5-09 ity of capsule 00:00: [place] 00 Medical Branch ondansetron 2022-0 Yes Univer s 4 mg tablet 5-09 ity of 00:00: [place] 00 Medical Branch DULoxetine 2022-0 Yes [facility] 30 mg 5-09 ity of capsule 00:00: [place] [address] Medical Branch gabapentin 2022-0 Yes [facility] 300 mg 5-09 ity of capsule 00:00: [place] 00 Medical Branch ondansetron 2022-0 Yes Univer s 4 mg tablet 5-09 ity of 00:00: [place] [address] Medical Branch DULoxetine 2022-0 Yes [facility] 30 mg 5-09 ity of capsule 00:00: [place] [address] Medical Branch gabapentin 2022-0 Yes [facility] 300 mg 5-09 ity of capsule 00:00: [place] 00 Medical Branch ondansetron 2022-0 Yes Univer s 4 mg tablet 5-09 ity of 00:00: [place] [address] Medical Branch DULoxetine 2022-0 Yes [facility] 30 mg 5-09 ity of capsule 00:00: [place] [address] Medical Branch gabapentin 2022-0 Yes [facility] 300 mg 5-09 ity of capsule 00:00: [place] [address] Medical Branch ondansetron 2022-0 Yes Un[facility] s 4 mg tablet 5-09 ity of 00:00: [place] [address] Medical Branch DULoxetine 2022-0 Yes [facility] 30 mg 5-09 ity of capsule 00:00: [place] [address] Medical Branch gabapentin 2022-0 Yes [facility] 300 mg 5-09 ity of capsule 00:00: [place] [address] Medical Branch ondansetron 2022-0 Yes Univer s 4 mg tablet 5-09 ity of 00:00: [place] [address] Medical Branch DULoxetine 2022-0 Yes [facility] 30 mg 5-09 ity of capsule 00:00: [place] [address] Medical Branch gabapentin 2022-0 Yes [facility] 300 mg 5-09 ity of capsule 00:00: [place] [address] Medical Branch ondansetron 2022-0 Yes Univer s 4 mg tablet 5-09 ity of 00:00: [place] [address] Medical Branch DULoxetine 2022-0 Yes [facility] 30 mg 5-09 ity of capsule 00:00: [place] [address] Medical Branch gabapentin 2022-0 Yes [facility] 300 mg 5-09 ity of capsule 00:00: [place] [address] Medical Branch ondansetron 2022-0 Yes Univer s 4 mg tablet 5-09 ity of 00:00: [place] [address] Medical Branch DULoxetine 2022-0 Yes [facility] 30 mg 5-09 ity of capsule 00:00: [place] [address] Medical Branch gabapentin 2022-0 Yes [facility] 300 mg 5-09 ity of capsule 00:00: [place] [address] Medical Branch ondansetron 2022-0 Yes Univer s 4 mg tablet 5-09 ity of 00:00: [place] 00 Medical Branch DULoxetine 2022-0 2022- No Univer s 30 mg 5-09 10-18 ity of capsule 00:00: 00:00 [place] 00 :00 Medical Branch gabapentin 2022-0 2022- No Univer s 300 mg 5-09 10-18 ity of capsule 00:00: 00:00 [place] 00 :00 Medical Branch ondansetron 2022-0 2022- No Unive rs 4 mg tablet 09-18 ity of 00:00: 00:00 [place] 00 :00 Medical Branch DULoxetine 2022-0 2022- No Univer s 30 mg 09-18 ity of capsule 00:00: 00:00 [place] 00 :00 Medical Branch gabapentin 2022-0 2022- No Univer s 300 mg 09-18 ity of capsule 00:00: 00:00 [place] 00 :00 Medical Branch ondansetron 2022-0 2022- No Unive rs 4 mg tablet 09-18 ity of 00:00: 00:00 [place] 00 :00 Medical Branch DULoxetine 2022-0 2- No Univer s 30 mg 09-18 ity of capsule 00:00: 00:00 [place] 00 :00 Medical Branch gabapentin 2022-0 2- No Univer s 300 mg 09-18 ity of capsule 00:00: 00:00 [place] 00 :00 Medical Branch ondansetron 2022-0 2022- No Unive rs 4 mg tablet 09-18 ity of 00:00: 00:00 [place] 00 :00 Medical Branch DULoxetine 2022-0 2- No Univer s 30 mg 09-18 ity of capsule 00:00: 00:00 [place] 00 :00 Medical Branch gabapentin 2022-0 2022- No Univer s 300 mg 09-18 ity of capsule 00:00: 00:00 [place] 00 :00 Medical Branch ondansetron 2022-0 2022- No Unive rs 4 mg tablet 09-18 ity of 00:00: 00:00 [place] 00 :00 Medical Branch amLODIPine 2022-0 Yes [facility] 5 mg tablet 4-22 ity of 00:00: [place] 00 Medical Branch amLODIPine 2022-0 Yes 5mg Take 5 mg Un sushant 5 mg tablet 4-22 by mouth. ity of 00:00: [place] 00 Medical Branch amLODIPine 2022-0 Yes [facility] 5 mg tablet 4-22 ity of 00:00: [place] 00 Medical Branch amLODIPine 2022-0 Yes 5mg Take 5 mg Un sushant 5 mg tablet 4-22 by mouth. ity of 00:00: [place] 00 Medical Branch amLODIPine 2022-0 Yes [facility] 5 mg tablet 4-22 ity of 00:00: [place] [facility] Branch amLODIPine 2022-0 Yes 5mg Take 5 mg Un sushant 5 mg tablet 4-22 by mouth. ity of 00:00: [place] [facility] Branch amLODIPine 2022-0 Yes [facility] 5 mg tablet 4-22 ity of 00:00: [place] [facility] Branch amLODIPine 2022-0 Yes 5mg Take 5 mg Un sushant 5 mg tablet 4-22 by mouth. ity of 00:00: [place] [facility] Branch amLODIPine 2022-0 Yes [facility] 5 mg tablet 4-22 ity of 00:00: [place] [facility] Branch amLODIPine 2022-0 Yes 5mg Take 5 mg Un sushant 5 mg tablet 4-22 by mouth. ity of 00:00: [place] [facility] Branch amLODIPine 2022-0 Yes [facility] 5 mg tablet 4-22 ity of 00:00: [place] [facility] Branch amLODIPine 2022-0 Yes 5mg Take 5 mg Un sushant 5 mg tablet 4-22 by mouth. ity of 00:00: [place] [facility] Branch amLODIPine 2022-0 Yes [facility] 5 mg tablet 4-22 ity of 00:00: [place] [facility] Branch amLODIPine 2022-0 Yes 5mg Take 5 mg Un sushant 5 mg tablet 4-22 by mouth. ity of 00:00: [place] [facility] Branch amLODIPine 2022-0 Yes [facility] 5 mg tablet 4-22 ity of 00:00: [place] [facility] amLODIPine 2022-0 Yes 5mg Take 5 mg Un sushant 5 mg tablet 4-22 by mouth. ity of 00:00: [place] [facility] Branch amLODIPine 2022-0 Yes [facility] 5 mg tablet 4-22 ity of 00:00: [place] [facility] amLODIPine 2022-0 Yes 5mg Take 5 mg Un sushant 5 mg tablet 4-22 by mouth. ity of 00:00: [place] [facility] amLODIPine 2022-0 Yes [facility] 5 mg tablet 4-22 ity of 00:00: [place] [facility] amLODIPine 2022-0 Yes 5mg Take 5 mg Un sushant 5 mg tablet 4-22 by mouth. ity of 00:00: [place] [facility] amLODIPine 2022-0 Yes [facility] 5 mg tablet 4-22 ity of 00:00: [place] 00 Medical Branch amLODIPine 2022-0 Yes 5mg Take 5 mg Un sushant 5 mg tablet 09-01 by mouth. ity of 00:00: [place] 00 Medical Branch amLODIPine 2022-0 2022- No Univer s 5 mg tablet 09-01 ity of 00:00: 00:00 [place] 00 :00 Medical Branch amLODIPine 2022-0 2022- No 5mg Take 5 mg U nivers 5 mg tablet 09-01 by mouth. it y of 00:00: 00:00 [place] 00 :00 Medical Branch amLODIPine 2022-0 2022- No Univer s 5 mg tablet 09-01 ity of 00:00: 00:00 [place] 00 :00 Medical Branch amLODIPine 2022-0 2022- No 5mg Take 5 mg U nivers 5 mg tablet 09-01 by mouth. it y of 00:00: 00:00 [place] 00 :00 Medical Branch amLODIPine 2022-0 2022- No Univer s 5 mg tablet 09-01 ity of 00:00: 00:00 [place] 00 :00 Medical Branch amLODIPine 2022-0 2022- No 5mg Take 5 mg U nivers 5 mg tablet 09-01 by mouth. it y of 00:00: 00:00 [place] 00 :00 Medical Branch amLODIPine 2022-0 2022- No Univer s 5 mg tablet 09-01 ity of 00:00: 00:00 [place] 00 :00 Medical Branch amLODIPine 2022-0 2022- No 5mg Take 5 mg U nivers 5 mg tablet 09-01 by mouth. it y of 00:00: 00:00 [place] 00 :00 Medical Branch buPROPion 2-0 Yes [...] mg 4-20 ity of 24 hr 00:00: [place] tablet 00 Medical Branch buPROPion 2022-0 Yes [...] of 24 hr 00:00: [place] tablet 00 [facility] Branch buPROPion 2022- No 150mg Take 150 Un sushant XL 150 mg 4-20 04-21 mg by ity of 24 hr 00:00: 04:59 mouth. [place] tablet 00 :00 [facility] Branch buPROPion 2022- No 150mg Take 150 Un sushant XL 150 mg 4-20 04-21 mg by ity of 24 hr 00:00: 04:59 mouth. [place] tablet 00 :00 [facility] Branch buPROPion 2022- No 150mg [...] 00:00: 04:59 mouth. [place] tablet 00 :00 [facility] Branch buPROPion 3- No 150mg Take 150 Un sushant XL 150 mg 4-20 04-21 mg by ity of 24 hr 00:00: 04:59 mouth. [place] tablet 00 :00 [facility] buPROPion 2022- No 150mg Take [...] by ity o f 00:00: mouth 2 [place] 00 (two) Medical times Branch daily. carvediloL 2020-2021- No 25mg Take 1 [facility] ers 25 mg 2-30 10-18 tablet by ity of tablet 00:00: 00:00 mouth 2 [place] 00 :00 (two) Medical times Branch daily with meals. losartan 50 2020-2021- No 50mg Take 1 Uni vers mg tablet 2-30 10-18 tablet by ity of 00:00: 00:00 mouth 2 [place] 00 :00 (two) Medical times Branch daily. carvediloL 2020-2021- No 25mg Take 1 Univ ers 25 mg 2-30 10-18 tablet by ity of tablet 00:00: 00:00 mouth 2 [place] 00 :00 (two) Medical times Branch daily with meals. losartan 50 2020-05- No 50mg Take 1 [facility] vers mg tablet 2-30 10-18 tablet by ity of 00:00: 00:00 mouth 2 [place] 00 :00 (two) Medical times Branch daily. carvediloL 2020-05- No 25mg Take 1 Univ ers 25 mg 2-30 10-18 tablet by ity of tablet 00:00: 00:00 mouth 2 [place] 00 :00 (two) Medical times Branch daily with meals. losartan 50 2020-05- No 50mg Take 1 [facility] vers mg tablet 2-30 10-18 tablet by ity of 00:00: 00:00 mouth 2 [place] 00 :00 (two) Medical times Branch daily. carvediloL 2020-05- No 25mg Take 1 Univ ers 25 mg 2-30 10-18 tablet by ity of tablet 00:00: 00:00 mouth 2 [place] 00 :00 (two) Medical times Branch daily with meals. losartan 50 2020-05- No 50mg Take 1 [facility] vers mg tablet 2-30 10-18 tablet by ity of 00:00: 00:00 mouth 2 [place] 00 :00 (two) Medical times Branch daily. Immunizations Ordered Filled Immunization Date Status Comments [facility] e Immunization Name Name Influenza Virus [...] y of Vaccine Quad .5 mL 00:00:00 [place] [facility] 6+ MO Branch Influenza Virus 2021-06-11 Completed Universit y of Vaccine 00:00:00 [place] [facility] Influenza Virus 2021-06-11 Completed Universit y of Vaccine 00:00:00 [facility] Influenza Virus 2021-06-11 Completed Universit y of Vaccine 00:00:00 [facility] Influenza Virus 2021-06-11 Completed Universit y of Vaccine 00:00:00 [facility] Influenza Virus 2021-06-11 Completed Universit y of Vaccine 00:00:00 [facility] Influenza Virus 2021-06-11 Completed Universit y of Vaccine 00:00:00 [facility] Branch Influenza Virus 2021-06-11 Completed Universit y of Vaccine 00:00:00 [facility] Influenza Virus 2021-06-11 Completed Universit y of Vaccine 00:00:00 [facility] Influenza Virus 2021-06-11 Completed Universit y of Vaccine 00:00:00 [facility] Influenza Virus 2021-06-11 Completed Universit y of Vaccine 00:00:00 [facility] Influenza Virus 2021-06-11 Completed Universit y of Vaccine 00:00:00 [facility] Influenza Virus 2021-06-11 Completed Universit y of Vaccine 00:00:00 [facility] Influenza Virus 2021-06-11 Completed Universit y of Vaccine 00:00:00 [facility] Influenza Virus 2021-06-11 Completed Universit y of Vaccine 00:00:00 [facility] Influenza Virus 2021-06-11 Completed Universit y of Vaccine 00:00:00 [facility] Influenza Virus 2021-06-11 Completed Universit y of Vaccine 00:00:00 [facility] Influenza Virus 2021-06-11 Completed Universit y of Vaccine 00:00:00 [facility] Influenza Virus 2021-06-11 Completed Universit y of Vaccine 00:00:00 [facility] Influenza Virus 2021-06-11 Completed Universit y of Vaccine 00:00:00 [facility] Influenza Virus 2021-06-11 Completed Universit y of Vaccine 00:00:00 [facility] Influenza Virus 2021-06-11 Completed Universit y of Vaccine 00:00:00 [facility] Influenza Virus 2021-06-11 Completed Universit y of Vaccine 00:00:00 [facility] Influenza Virus 2021-06-11 Completed Universit y of Vaccine 00:00:00 [facility] Influenza Virus 2021-06-11 Completed Universit y of Vaccine 00:00:00 [facility] Influenza Virus 2021-06-11 Completed Universit y of Vaccine 00:00:00 [facility] Influenza Virus 2021-06-11 Completed Universit y of Vaccine 00:00:00 [facility] Influenza Virus 2021-06-11 Completed Universit y of Vaccine 00:00:00 [facility] Influenza Virus 2021-06-11 Completed Universit y of Vaccine 00:00:00 [facility] Influenza Virus 2021-06-11 Completed Universit y of Vaccine 00:00:00 [facility] Influenza Virus 2021-06-11 Completed Universit y of Vaccine 00:00:00 [facility] Influenza Virus 2021-06-11 Completed [facility] Vaccine 00:00:00 [facility] Influenza Virus 2021-06-11 Completed [facility] Vaccine 00:00:00 [facility] Influenza Virus 2021-06-11 Completed [facility] of Vaccine 00:00:00 [facility] Influenza Virus 2021-06-11 Completed [facility] y of Vaccine 00:00:00 [facility] Influenza Virus 2021-06-11 Completed [facility] Vaccine 00:00:00 [facility] Influenza Virus 2021-06-11 Completed [facility] of Vaccine 00:00:00 [facility] Influenza Virus 2021-06-11 Completed [facility] y of Vaccine 00:00:00 [facility] Influenza Virus 2021-06-11 Completed [facility] of Vaccine 00:00:00 [facility] Influenza Virus 2021-06-11 Completed [facility] y of Vaccine 00:00:00 [facility] Influenza Virus 2021-06-11 Completed [facility] y of Vaccine 00:00:00 [facility] Influenza Virus 2021-06-11 Completed [facility] y of Vaccine 00:00:00 [facility] Influenza Virus 2021-06-11 Completed [facility] y of Vaccine 00:00:00 [facility] Influenza Virus 2021-06-11 Completed [facility] y of Vaccine 00:00:00 [facility] Influenza Virus 2021-06-11 Completed [facility] y of Vaccine 00:00:00 [facility] Influenza Virus 2021-06-11 Completed [facility]it y of Vaccine 00:00:00 [facility] Influenza Virus 2021-06-11 Completed [facility] y of Vaccine 00:00:00 [facility] Influenza Virus 2021-06-11 Completed [facility]it y of Vaccine 00:00:00 [facility] Influenza Virus 2021-06-11 Completed [facility] y of Vaccine 00:00:00 [facility] Influenza Virus 2021-06-11 Completed [facility]it y of Vaccine Quad .5 mL 00:00:00 [facility] 6+ MO Branch Influenza Virus 2021-06-11 Completed [facility] y of Vaccine 00:00:00 [facility] Influenza Virus 2021-06-11 Completed [facility]it y of Vaccine Quad .5 mL 00:00:00 [facility] 6+ MO [facility] Influenza Virus 2021-06-11 Completed [facility] y of Vaccine 00:00:00 [facility] Influenza Virus 2021-06-11 Completed [facility]it y of Vaccine Quad .5 mL 00:00:00 [facility] 6+ MO [facility] Influenza Virus 2021-06-11 Completed [facility] y of Vaccine 00:00:00 [facility] Influenza Virus 2021-06-11 Completed [facility]it y of Vaccine Quad .5 mL 00:00:00 [facility] 6+ MO [facility] Influenza Virus 2021-06-11 Completed [facility] y of Vaccine 00:00:00 [facility] Influenza Virus 2021-06-11 Completed [facility] y of Vaccine Quad .5 mL 00:00:00 [facility] 6+ MO [facility] Influenza Virus 2021-06-11 Completed [facility] of Vaccine 00:00:00 [facility] Influenza Virus 2021-06-11 Completed [facility] y of Vaccine Quad .5 mL 00:00:00 [facility] 6+ MO [facility] Influenza Virus 2021-06-11 Completed [facility] y of Vaccine 00:00:00 [facility] Influenza Virus 2021-06-11 Completed [facility] y of Vaccine Quad .5 mL 00:00:00 [facility] 6+ MO [facility] Influenza Virus 2021-06-11 Completed [facility] of Vaccine 00:00:00 [facility] Influenza Virus 2021-06-11 Completed [facility] y of Vaccine Quad .5 mL 00:00:00 [facility] 6+ MO [facility] Influenza Virus 2021-06-11 Completed [facility] y of Vaccine 00:00:00 [facility] Influenza Virus 2021-06-11 Completed [facility]it y of Vaccine Quad .5 mL 00:00:00 [facility] 6+ MO [facility] Influenza Virus 2021-06-11 Completed [facility] of Vaccine 00:00:00 [facility] Influenza Virus 2021-06-11 Completed [facility] y of Vaccine Quad .5 mL 00:00:00 [facility] 6+ MO [facility] Influenza Virus 2021-06-11 Completed [facility] of Vaccine 00:00:00 [facility] Influenza Virus 2021-06-11 Completed [facility] y of Vaccine Quad .5 mL 00:00:00 [facility] 6+ MO [facility] Influenza Virus 2021-06-11 Completed [facility] y of Vaccine 00:00:00 [facility] Influenza Virus 2021-06-11 Completed [facility]it y of Vaccine Quad .5 mL 00:00:00 [facility] 6+ MO [facility] Influenza Virus 2021-06-11 Completed [facility] y of Vaccine 00:00:00 [facility] Influenza Virus 2021-06-11 Completed [facility] y of Vaccine Quad .5 mL 00:00:00 [facility] 6+ MO [facility] Influenza Virus 2020-05-19 Completed [facility] of Vaccine 00:00:00 [facility] Influenza Virus 2020-05-19 Completed [facility] of Vaccine 00:00:00 [facility] Influenza Virus 2020-05-19 Completed [facility] y of Vaccine 00:00:00 [facility] Influenza Virus 2020-05-19 Completed [facility] y of Vaccine 00:00:00 [facility] Influenza Virus 2020-05-19 Completed [facility] y of Vaccine 00:00:00 [facility] Influenza Virus 2020-05-19 Completed [facility] y of Vaccine 00:00:00 [facility] Influenza Virus 2020-05-19 Completed [facility] y of Vaccine 00:00:00 [facility] Influenza Virus 2020-05-19 Completed [facility]it y of Vaccine 00:00:00 [facility] Influenza Virus 2020-05-19 Completed [facility]it y of Vaccine 00:00:00 [facility] Influenza Virus 2020-05-19 Completed [facility] y of Vaccine 00:00:00 [facility] Influenza Virus 2020-05-19 Completed [facility] y of Vaccine 00:00:00 [facility] Influenza Virus 2020-05-19 Completed [facility] y of Vaccine 00:00:00 [facility] Influenza Virus 2020-05-19 Completed [facility] y of Vaccine 00:00:00 [facility] Influenza Virus 2020-05-19 Completed [facility] y of Vaccine 00:00:00 [facility] Influenza Virus 2020-05-19 Completed [facility] y of Vaccine 00:00:00 [facility] Influenza Virus 2020-05-19 Completed [facility] y of Vaccine 00:00:00 [facility] Influenza Virus 2020-05-19 Completed [facility] y of Vaccine 00:00:00 [facility] Influenza Virus 2020-05-19 Completed [facility] y of Vaccine 00:00:00 [facility] Influenza Virus 2020-05-19 Completed [facility] y of Vaccine 00:00:00 [facility] Influenza Virus 2020-05-19 Completed [facility] y of Vaccine 00:00:00 [facility] Influenza Virus 2020-05-19 Completed [facility] y of Vaccine 00:00:00 [facility] Influenza Virus 2020-05-19 Completed [facility] Vaccine 00:00:00 [facility] Influenza Virus 2020-05-19 Completed [facility] y of Vaccine 00:00:00 [facility] Influenza Virus 2020-05-19 Completed [facility] y of Vaccine 00:00:00 [facility] Influenza Virus 2020-05-19 Completed [facility]it y of Vaccine 00:00:00 [facility] Influenza Virus 2020-05-19 Completed [facility] y of Vaccine 00:00:00 [facility] Influenza Virus 2020-05-19 Completed [facility] of Vaccine 00:00:00 [facility] Influenza Virus 2020-05-19 Completed [facility] y of Vaccine 00:00:00 [facility] Influenza Virus 2020-05-19 Completed [facility] y of Vaccine 00:00:00 [facility] Influenza Virus 2020-05-19 Completed [facility] y of Vaccine 00:00:00 [facility] Influenza Virus 2020-05-19 Completed [facility] y of Vaccine 00:00:00 [facility] Influenza Virus 2020-05-19 Completed [facility]it y of Vaccine 00:00:00 [facility] Influenza Virus 2020-05-19 Completed [facility] y of Vaccine 00:00:00 [facility] Influenza Virus 2020-05-19 Completed [facility] y of Vaccine 00:00:00 [facility] Influenza Virus 2020-05-19 Completed [facility] y of Vaccine 00:00:00 [facility] Influenza Virus 2020-05-19 Completed [facility] y of Vaccine 00:00:00 [facility] Influenza Virus 2020-05-19 Completed [facility] y of Vaccine 00:00:00 [facility] Influenza Virus 2020-05-19 Completed [facility] y of Vaccine 00:00:00 [facility] Influenza Virus 2020-05-19 Completed [facility] y of Vaccine 00:00:00 [facility] Influenza Virus 2020-05-19 Completed [facility] y of Vaccine 00:00:00 [facility] Influenza Virus 2020-05-19 Completed [facility] y of Vaccine 00:00:00 [facility] Influenza Virus 2020-05-19 Completed [facility] y of Vaccine 00:00:00 [facility] Influenza Virus 2020-05-19 Completed [facility] y of Vaccine 00:00:00 [facility] Influenza Virus 2020-05-19 Completed [facility] of Vaccine 00:00:00 [facility] Influenza Virus 2020-05-19 Completed [facility] y of Vaccine 00:00:00 [facility] Influenza Virus 2020-05-19 Completed [facility] y of Vaccine 00:00:00 [facility] Influenza Virus 2020-05-19 Completed [facility] y of Vaccine 00:00:00 [facility] Influenza Virus 2020-05-19 Completed [facility] of Vaccine 00:00:00 [facility] Influenza Virus 2020-05-19 Completed [facility] y of Vaccine 00:00:00 [facility] Influenza Virus 2020-05-19 Completed [facility]it y of Vaccine 00:00:00 [facility] Influenza Virus 2020-05-19 Completed [facility] y of Vaccine 00:00:00 [facility] Influenza Virus 2020-05-19 Completed [facility]it y of Vaccine 00:00:00 [facility] Influenza Virus 2020-05-19 Completed [facility] y of Vaccine 00:00:00 [facility] Influenza Virus 2020-05-19 Completed [facility]it y of Vaccine 00:00:00 [facility] Influenza Virus 2020-05-19 Completed [facility] y of Vaccine 00:00:00 [facility] Influenza Virus 2020-05-19 Completed [facility] y of Vaccine 00:00:00 [facility] Influenza Virus 2020-05-19 Completed [facility] y of Vaccine 00:00:00 [facility] Influenza Virus 2020-05-19 Completed [facility] y of Vaccine 00:00:00 [facility] Influenza Virus 2020-05-19 Completed [facility] y of Vaccine 00:00:00 [facility] Influenza Virus 2020-05-19 Completed [facility] y of Vaccine 00:00:00 [facility] Influenza Virus 2020-05-16 Completed [facility]it y of [...] Universit y of Vaccine Recomb Quad 00:00:00 [facility], Preserv and ABX Bran h Free 18-64 YRS TDAP (ADACEL) 2019-05-21 Completed University of VACCINE 00:00:00 [facility] TDAP (ADACEL) 2019-05-21 Completed University of VACCINE 00:00:00 [facility] TDAP (ADACEL) 2019-05-21 Completed University of VACCINE 00:00:00 [facility] TDAP (ADACEL) 2019-05-21 Completed University of VACCINE 00:00:00 [facility] TDAP (ADACEL) 2019-05-21 Completed University of VACCINE 00:00:00 [facility] TDAP (ADACEL) 2019-05-21 Completed University of VACCINE 00:00:00 [facility] TDAP (ADACEL) 2019-05-21 Completed University of VACCINE 00:00:00 [facility] TDAP (ADACEL) 2019-05-21 Completed University of VACCINE 00:00:00 [facility] TDAP (ADACEL) 2019-05-21 Completed University of VACCINE 00:00:00 [facility] TDAP (ADACEL) 2019-05-21 Completed University of VACCINE 00:00:00 [facility] TDAP (ADACEL) 2019-05-21 Completed University of VACCINE 00:00:00 [facility] TDAP (ADACEL) 2019-05-21 Completed [facility] of VACCINE 00:00:00 [facility] TDAP (ADACEL) 2019-05-21 Completed University of VACCINE 00:00:00 [facility] TDAP (ADACEL) 2019-05-21 Completed University of VACCINE 00:00:00 [facility] TDAP (ADACEL) 2019-05-21 Completed University of VACCINE 00:00:00 [facility] TDAP (ADACEL) 2019-05-21 Completed [facility] of VACCINE 00:00:00 [facility] TDAP (ADACEL) 2019-05-21 Completed University of VACCINE 00:00:00 [facility] TDAP (ADACEL) 2019-05-21 Completed [facility] of VACCINE 00:00:00 [facility] TDAP (ADACEL) 2019-05-21 Completed University of VACCINE 00:00:00 [facility] TDAP (ADACEL) 2019-05-21 Completed University of VACCINE 00:00:00 [facility] TDAP (ADACEL) 2019-05-21 Completed University of VACCINE 00:00:00 [facility] TDAP (ADACEL) 2019-05-21 Completed [facility] of VACCINE 00:00:00 [facility] TDAP (ADACEL) 2019-05-21 Completed University of VACCINE 00:00:00 [facility] TDAP (ADACEL) 2019-05-21 Completed University of VACCINE 00:00:00 [facility] TDAP (ADACEL) 2019-05-21 Completed [facility] of VACCINE 00:00:00 [facility] TDAP (ADACEL) 2019-05-21 Completed [facility] of VACCINE 00:00:00 [facility] TDAP (ADACEL) 2019-05-21 Completed [facility] of VACCINE 00:00:00 [facility] TDAP (ADACEL) 2019-05-21 Completed [facility] of VACCINE 00:00:00 [facility] TDAP (ADACEL) 2019-05-21 Completed [facility] of VACCINE 00:00:00 [facility] TDAP (ADACEL) 2019-05-21 Completed University of VACCINE 00:00:00 [facility] TDAP (ADACEL) 2019-05-21 Completed [facility] of VACCINE 00:00:00 [facility] TDAP (ADACEL) 2019-05-21 Completed University of VACCINE 00:00:00 [facility] TDAP (ADACEL) 2019-05-21 Completed [facility] of VACCINE 00:00:00 [facility] TDAP (ADACEL) 2019-05-21 Completed University of VACCINE 00:00:00 [facility] TDAP (ADACEL) 2019-05-21 Completed [facility] of VACCINE 00:00:00 [facility] TDAP (ADACEL) 2019-05-21 Completed [facility] of VACCINE 00:00:00 [facility] TDAP (ADACEL) 2019-05-21 Completed [facility] of VACCINE 00:00:00 [facility] TDAP (ADACEL) 2019-05-21 Completed [facility] of VACCINE 00:00:00 [facility] TDAP (ADACEL) 2019-05-21 Completed [facility] of VACCINE 00:00:00 [facility] TDAP (ADACEL) 2019-05-21 Completed [facility] of VACCINE 00:00:00 [facility] TDAP (ADACEL) 2019-05-21 Completed [facility] of VACCINE 00:00:00 [facility] TDAP (ADACEL) 2019-05-21 Completed [facility] of VACCINE 00:00:00 [facility] TDAP (ADACEL) 2019-05-21 Completed University of VACCINE 00:00:00 [facility] TDAP (ADACEL) 2019-05-21 Completed University of VACCINE 00:00:00 [facility] TDAP (ADACEL) 2019-05-21 Completed University of VACCINE 00:00:00 [facility] TDAP (ADACEL) 2019-05-21 Completed University of VACCINE 00:00:00 [facility] TDAP (ADACEL) 2019-05-21 Completed University of VACCINE 00:00:00 [facility] TDAP (ADACEL) 2019-05-21 Completed University of VACCINE 00:00:00 [facility] TDAP (ADACEL) 2019-05-21 Completed University of VACCINE 00:00:00 [facility] TDAP (ADACEL) 2019-05-21 Completed University of VACCINE 00:00:00 [facility] TDAP (ADACEL) 2019-05-21 Completed University of VACCINE 00:00:00 [facility] TDAP (ADACEL) 2019-05-21 Completed University of VACCINE 00:00:00 [facility] TDAP (ADACEL) 2019-05-21 Completed University of VACCINE 00:00:00 [facility] TDAP (ADACEL) 2019-05-21 Completed University of VACCINE 00:00:00 [facility] TDAP (ADACEL) 2019-05-21 Completed University of VACCINE 00:00:00 [facility] TDAP (ADACEL) 2019-05-21 Completed University of VACCINE 00:00:00 [facility] TDAP (ADACEL) 2019-05-21 Completed University of VACCINE 00:00:00 [facility] TDAP (ADACEL) 2019-05-21 Completed University of VACCINE 00:00:00 [facility] TDAP (ADACEL) 2019-05-21 Completed University of VACCINE 00:00:00 [facility] TDAP (ADACEL) 2019-05-21 Completed University of VACCINE 00:00:00 [facility] Influenza Virus 2019-02-06 Completed Universit y of Vaccine Quad .5 mL 00:00:00 [facility] 6+ MO Branch Influenza Virus 2019-02-06 Completed Universit y of Vaccine Quad .5 mL 00:00:00 [facility] 6+ MO [facility] Influenza Virus 2019-02-06 Completed [facility]it y of Vaccine Quad .5 mL 00:00:00 [facility] 6[facility] Influenza Virus 2019-02-06 Completed [facility]it y of Vaccine Quad .5 mL 00:00:00 [facility] 6[facility] MO [facility] Influenza Virus 2019-02-06 Completed [facility] y of Vaccine Quad .5 mL 00:00:00 [facility] 6+ MO [facility] Influenza Virus [...] y of Vaccine Quad .5 mL 00:00:00 [facility] 6+ MO [facility] Influenza Virus 2019-02-06 Completed [facility]it y of Vaccine Quad .5 mL 00:00:00 [facility] 6+ MO [facility] Influenza Virus 2019-02-06 Completed [facility]it y of Vaccine Quad .5 mL 00:00:00 [facility] 6+ MO [facility] Influenza Virus 2019-02-06 Completed [facility] y of Vaccine Quad .5 mL 00:00:00 [facility] 6+ MO [facility] Influenza Virus 2019-02-06 Completed [facility]it y of Vaccine Quad .5 mL 00:00:00 [facility]+ MO [facility] Influenza Virus 2019-02-06 Completed [facility]it y of Vaccine Quad .5 mL 00:00:00 [facility]+ MO [facility] Influenza Virus 2019-02-06 Completed [facility] y of Vaccine Quad .5 mL 00:00:00 [facility] Influenza Virus 2019-02-06 Completed [facility]it y of Vaccine Quad .5 mL 00:00:00 [facility] 6[facility] Influenza Virus 2019-02-06 Completed [facility] y of Vaccine Quad .5 mL 00:00:00 [facility] 6[facility] MO [facility] Influenza Virus 2019-02-06 Completed [facility] y of Vaccine Quad .5 mL 00:00:00 [facility] 6[facility] Influenza Virus 2019-02-06 Completed [facility] y of Vaccine Quad .5 mL 00:00:00 [facility] 6[facility] MO [facility] Influenza Virus 2019-02-06 Completed [facility] y of Vaccine Quad .5 mL 00:00:00 [facility] 6[facility] MO [facility] Influenza Virus 2019-02-06 Completed [facility] y of Vaccine Quad .5 mL 00:00:00 [facility] 6[facility] MO [facility] Influenza Virus 2019-02-06 Completed [facility]it y of Vaccine Quad .5 mL 00:00:00 [facility] 6+ MO [facility] Influenza Virus 2019-02-06 Completed [facility] y of Vaccine Quad .5 mL 00:00:00 [facility] 6[facility] MO [facility] Influenza Virus 2019-02-06 Completed [facility]it y of Vaccine Quad .5 mL 00:00:00 [facility] 6[facility] MO [facility] Influenza Virus 2019-02-06 Completed [facility]it y of Vaccine Quad .5 mL 00:00:00 [facility] 6[facility] MO [facility] Influenza Virus 2019-02-06 Completed [facility]it y of Vaccine Quad .5 mL 00:00:00 [facility] 6[facility] MO [facility] Influenza Virus 2019-02-06 Completed [facility]it y of Vaccine Quad .5 mL 00:00:00 [facility] 6+ MO [facility] Influenza Virus 2019-02-06 Completed [facility]it y of Vaccine Quad .5 mL 00:00:00 [facility] 6+ MO [facility] Influenza Virus 2019-02-06 Completed [facility]it y of Vaccine Quad .5 mL 00:00:00 [facility] 6+ MO [facility] Influenza Virus 2019-02-06 Completed [facility]it y of Vaccine Quad .5 mL 00:00:00 [facility]+ MO [facility] Influenza Virus 2019-02-06 Completed [facility]it y of Vaccine Quad .5 mL 00:00:00 [facility] 6+ MO Branch Influenza Virus 2019-02-06 Completed Universit y of Vaccine Quad .5 mL 00:00:00 [facility] 6[facility] MO [facility] Influenza Virus 2019-02-06 Completed [facility]it y of Vaccine Quad .5 mL 00:00:00 [facility] 6+ MO [facility] Influenza Virus 2019-02-06 Completed [facility] y of Vaccine Quad .5 mL 00:00:00 [facility] 6[facility] MO [facility] Influenza Virus 2019-02-06 Completed [facility] y of Vaccine Quad .5 mL 00:00:00 [facility] 6+ MO [facility] Influenza Virus 2019-02-06 Completed [facility]it y of Vaccine Quad .5 mL 00:00:00 [facility] 6+ MO [facility] Influenza Virus 2019-02-06 Completed [facility]it y of Vaccine Quad .5 mL 00:00:00 [facility] 6+ MO Branch Influenza Virus [...] y of Vaccine Quad .5 mL 00:00:00 [facility] 6[facility] MO [facility] Influenza Virus 2019-02-06 Completed [facility] y of Vaccine Quad .5 mL 00:00:00 [facility] 6[facility] MO [facility] Influenza Virus 2019-02-06 Completed [facility]it y of Vaccine Quad .5 mL 00:00:00 [facility] 6[facility] MO [facility] Influenza Virus 2019-02-06 Completed [facility]it y of Vaccine Quad .5 mL 00:00:00 [facility] 6+ MO [facility] Influenza Virus 2019-02-06 Completed [facility] y of Vaccine Quad .5 mL 00:00:00 [facility] 6+ MO [facility] Influenza Virus 2019-02-06 [...] y of Vaccine Quad .5 mL 00:00:00 [facility] 6+ MO Branch Influenza Virus [...] y of Vaccine Quad .5 mL 00:00:00 [facility] 6+ MO [facility] Influenza Virus 2019-02-06 Completed Universit y of Vaccine Quad .5 mL 00:00:00 [facility] 6+ MO [facility] Vital Signs Vital Name Observation Time Observation Value Comments Source Systolic blood 2022-11-21 21:40:00 122 mm[Hg] Univer sity of pressure [facility] Diastolic blood 2022-11-21 21:40:00 90 mm[Hg] Unive rsity of pressure [facility] Heart rate 2022-11-21 21:40:00 92 /min Universi ty of [facility] Respiratory rate 2022-11-21 21:40:00 16 /min [facility] Oxygen saturation in 2022-11-21 21:40:00 99 /min University of Arterial blood by [facility] Pulse oximetry Branch Body temperature 2022-11-21 18:07:00 37.28 Irene [facility] Body weight 2022-11-21 18:07:00 68.04 [facility] BMI 2022-11-21 18:07:00 28.34 kg/m2 [facility] Systolic blood 2022-09-05 17:22:00 139 mm[Hg] Univer sity of pressure [facility] Diastolic blood 2022-09-05 17:22:00 91 mm[Hg] Unive rsity of pressure [facility] Heart rate 2022-09-05 17:22:00 120 /min Universi ty of [facility] Respiratory rate 2022-09-05 17:22:00 18 /min Univ ersity of [facility] Oxygen saturation in 2022-09-05 17:22:00 99 /min University of Arterial blood by [facility] Pulse oximetry Branch Body temperature 2022-09-05 13:43:00 37.11 Irene Univ ersity of [facility] Body weight 2022-09-05 13:43:00 68.04 kg [facility] BMI 2022-09-05 13:43:00 28.34 kg/m2 [facility] Systolic blood 2022-08-01 00:49:00 138 mm[Hg] [facility] Diastolic blood 2022-08-01 00:49:00 104 mm[Hg] [facility] Heart rate 2022-08-01 00:49:00 108 /min [facility] Respiratory rate 2022-08-01 00:49:00 18 /min [facility] Oxygen saturation in 2022-08-01 00:49:00 99 /min [facility] Arterial blood by [facility] Pulse oximetry Branch Body temperature 2022-07-31 22:52:00 37.11 Irene [facility] Body height 2022-07-31 22:52:00 154.9 cm [facility] Body weight 2022-07-31 22:52:00 68.04 kg [facility] BMI 2022-07-31 22:52:00 28.34 kg/m2 [facility] Systolic blood 2022-07-15 15:32:00 130 mm[Hg] [facility] Diastolic blood 2022-07-15 15:32:00 90 mm[Hg] [facility] Heart rate 2022-07-15 15:31:00 81 /min [facility] Body temperature 2022-07-15 15:31:00 36.94 Irene [facility] Respiratory rate 2022-07-15 15:31:00 16 /min [facility] Body weight 2022-07-15 15:31:00 68.493 kg [facility] BMI 2022-07-15 15:31:00 28.53 kg/m2 [facility] Oxygen saturation in 2022-07-15 15:31:00 99 /min [facility] Systolic blood 2022-06-23 15:26:00 111 mm[Hg] [facility] Diastolic blood 2022-06-23 15:26:00 75 mm[Hg] [facility] Heart rate 2022-06-23 15:26:00 108 /min [facility] Body temperature 2022-06-23 15:26:00 36.83 Irene [facility] Respiratory rate 2022-06-23 15:26:00 18 /min [facility] Body height 2022-06-23 15:26:00 154.9 cm [facility] Body weight 2022-06-23 15:26:00 71.385 kg [facility] BMI 2022-06-23 15:26:00 29.74 kg/m2 [facility] Oxygen saturation in 2022-06-23 15:26:00 99 /min [facility] by [facility] Pulse oximetry Branch Systolic blood 2022-05-05 22:05:00 126 mm[Hg] [facility] Diastolic blood 2022-05-05 22:05:00 75 mm[Hg] [facility] Heart rate 2022-05-05 22:05:00 99 /min [facility] Respiratory rate 2022-05-05 22:05:00 16 /min [facility] Oxygen saturation in 2022-05-05 22:05:00 99 /min [facility] by [facility] Pulse oximetry Branch Body temperature 2022-05-05 18:24:00 37.11 Irene [facility] Body height 2022-05-05 18:24:00 154.9 cm [facility] Body weight 2022-05-05 18:24:00 54.432 kg [facility] BMI 2022-05-05 18:24:00 22.67 kg/m2 [facility] Systolic blood 2022-04-26 14:28:00 135 mm[Hg] [facility] Diastolic blood 2022-04-26 14:28:00 95 mm[Hg] [facility] Heart rate 2022-04-26 14:28:00 93 /min [facility] Body temperature 2022-04-26 14:28:00 36.89 Irene [facility] Respiratory rate 2022-04-26 14:28:00 18 /min [facility] Body height 2022-04-26 14:28:00 154.9 cm [facility] Body weight 2022-04-26 14:28:00 54.432 kg [facility] BMI 2022-04-26 14:28:00 22.67 kg/m2 [facility] Oxygen saturation in 2022-04-26 14:28:00 100 /min [facility] [place] [employer] [facility] Pulse oximetry Branch Systolic blood 2022-04-26 00:21:00 151 mm[Hg] [facility] Diastolic blood 2022-04-26 00:21:00 98 mm[Hg] [facility] Heart rate 2022-04-26 00:21:00 98 /min [facility] Body temperature 2022-04-26 00:21:00 36.72 Irene [facility] Respiratory rate 2022-04-26 00:21:00 18 /min [facility] Body height 2022-04-26 00:21:00 154.9 cm [facility] Body weight 2022-04-26 00:21:00 54.432 kg [facility] BMI 2022-04-26 00:21:00 22.67 kg/m2 [facility] Oxygen saturation in 2022-04-26 00:21:00 100 /min [facility] Systolic blood 2022-04-09 14:39:00 122 mm[Hg] [facility] Diastolic blood 2022-04-09 14:39:00 84 mm[Hg] [facility] Heart rate 2022-04-09 14:39:00 96 /min [facility] Body height 2022-04-09 14:39:00 154.9 cm [facility] Body weight 2022-04-09 14:39:00 60.328 kg [facility] BMI 2022-04-09 14:39:00 25.13 kg/m2 [facility] Oxygen saturation in 2022-04-09 14:39:00 98 /min [facility] by [facility] Pulse oximetry Branch Systolic blood 2022-04-07 [...] 97 /min [facility] by [facility] Pulse oximetry Branch Body temperature 2022-04-07 19:41:00 37.17 Irene [facility] Body height 2022-04-07 19:41:00 154.9 cm [facility] Body weight 2022-04-07 19:41:00 60.328 kg [facility] BMI 2022-04-07 19:41:00 25.13 kg/m2 [facility] Systolic blood 2022-03-24 19:00:00 125 mm[Hg] [facility] Diastolic blood 2022-03-24 19:00:00 86 mm[Hg] [facility] Heart rate 2022-03-24 19:00:00 93 /min [facility] Respiratory rate 2022-03-24 19:00:00 17 /min [facility] Oxygen saturation in 2022-03-24 19:00:00 97 /min [facility] by [facility] Pulse oximetry Branch Body temperature 2022-03-24 13:33:00 36.78 Irene [facility] Systolic blood 2022-03-15 19:23:00 128 mm[Hg] [facility] Diastolic blood 2022-03-15 19:23:00 89 mm[Hg] [facility] Heart rate 2022-03-15 19:23:00 104 /min [facility] Body weight 2022-03-15 19:23:00 60.328 kg [facility] BMI 2022-03-15 19:23:00 25.13 kg/m2 [facility] Oxygen saturation in 2022-03-15 19:23:00 98 /min [facility] [place] [employer] [facility] Pulse oxim[facility] Systolic blood 2022-03-15 15:02:00 115 mm[Hg] [facility] Diastolic blood 2022-03-15 15:02:00 70 mm[Hg] [facility] Heart rate 2022-03-15 15:02:00 85 /min [facility] Respiratory rate 2022-03-15 15:02:00 20 /min [facility] Oxygen saturation in 2022-03-15 15:02:00 99 /min [facility] [place] [employer] [facility] P[facility] Body temperature 2022-03-15 13:38:00 36.94 Irene [facility] Body height 2022-03-15 13:38:00 154.9 cm [facility] Body weight 2022-03-15 13:38:00 54.432 kg [facility] BMI 2022-03-15 13:38:00 22.67 kg/m2 [facility] Systolic blood 2022-03-11 16:30:00 124 mm[Hg] [facility] Diastolic blood 2022-03-11 16:30:00 88 mm[Hg] [facility] Heart rate 2022-03-11 16:30:00 93 /min [facility] Body temperature 2022-03-11 16:30:00 36.67 Irene [facility] Respiratory rate 2022-03-11 16:30:00 14 /min [facility] Oxygen saturation in 2022-03-11 16:30:00 100 /min [facility] [place] [employer] [facility] P[facility] Body height 2022-03-11 14:19:00 154.9 cm [facility] Body weight 2022-03-11 14:19:00 58.968 kg [facility] BMI 2022-03-11 14:19:00 24.56 kg/m2 [facility] Systolic blood 2022-02-27 14:14:00 140 mm[Hg] [facility] Diastolic blood 2022-02-27 14:14:00 90 mm[Hg] [facility] Heart rate 2022-02-27 14:14:00 103 /min [facility] Body height 2022-02-27 14:14:00 154.9 cm [facility] Body weight 2022-02-27 14:14:00 59.194 kg [facility] BMI 2022-02-27 14:14:00 24.66 kg/m2 [facility] Oxygen saturation in 2022-02-27 14:14:00 100 /min [facility] by [facility] Pulse oximetry Branch Systolic blood 2022-02-27 13:19:00 131 mm[Hg] [facility] Diastolic blood 2022-02-27 13:19:00 86 mm[Hg] [facility] Heart rate 2022-02-27 13:19:00 102 /min [facility] Body temperature 2022-02-27 13:19:00 36.33 Irene [facility] Body height 2022-02-27 13:19:00 154.9 cm [facility] Body weight 2022-02-27 13:19:00 58.968 kg [facility] BMI 2022-02-27 13:19:00 24.56 kg/m2 [facility] Oxygen saturation in 2022-02-27 13:19:00 99 /min [facility]ter[facility] blood by [facility] Pulse oximetry Branch Systolic blood 2022-02-21 08:06:00 135 mm[Hg] [facility] Diastolic blood 2022-02-21 08:06:00 97 mm[Hg] [facility] Heart rate 2022-02-21 08:06:00 98 /min [facility] Respiratory rate 2022-02-21 08:06:00 16 /min [facility] Oxygen saturation in 2022-02-21 08:06:00 97 /min [facility] by [facility] Pulse oximetry Branch Body temperature 2022-02-21 06:16:00 36.94 Irene [facility] Body height 2022-02-21 06:16:00 154.9 cm [facility] Body weight 2022-02-21 06:16:00 60.963 kg [facility] BMI 2022-02-21 06:16:00 25.39 kg/m2 [facility] Systolic blood 2022 20:08:00 136 mm[Hg] [facility] Diastolic blood 2022 20:08:00 96 mm[Hg] [facility] Heart rate 2022 20:08:00 100 /min [facility] Respiratory rate 2022 20:08:00 20 /min [facility] Oxygen saturation in 2022 20:08:00 98 /min [facility] by [facility] Pulse oximetry Branch Body temperature 2022 16:56:00 37.06 Irene [facility] Body weight 2022 16:56:00 54.432 kg [facility] BMI 2022 16:56:00 22.67 kg/m2 [facility] Systolic blood 2022-02-05 14:31:00 128 mm[Hg] [facility] Diastolic blood 2022-02-05 14:31:00 84 mm[Hg] [facility] Heart rate 2022-02-05 14:31:00 86 /min [facility] Body temperature 2022-02-05 14:31:00 37.89 Irene [facility] Respiratory rate 2022-02-05 14:31:00 18 /min [facility] Body height 2022-02-05 14:31:00 154.9 cm [facility] Body weight 2022-02-05 14:31:00 54.432 kg [facility] BMI 2022-02-05 14:31:00 22.67 kg/m2 [facility] Oxygen saturation in 2022-02-05 14:31:00 98 /min [facility] by [facility] Pulse oximetry Branch Systolic blood 2022-01-18 14:50:00 144 mm[Hg] [facility] Diastolic blood 2022-01-18 14:50:00 92 mm[Hg] [facility] Heart rate 2022-01-18 14:50:00 94 /min [facility] Respiratory rate 2022-01-18 14:50:00 20 /min [facility] Oxygen saturation in 2022-01-18 14:50:00 99 /min [facility] by [facility] Pulse oximetry Branch Body weight 2022-01-18 10:18:00 54.432 kg [facility] BMI 2022-01-18 10:18:00 22.67 kg/m2 [facility] Body temperature 2022-01-18 10:15:00 36.72 Irene [facility] Systolic blood 2022-01-15 15:48:26 125 mm[Hg] [facility] Diastolic blood 2022-01-15 15:48:26 85 mm[Hg] [facility] Heart rate 2022-01-15 15:48:26 95 /min [facility] Respiratory rate 2022-01-15 15:48:26 18 /min [facility] Oxygen saturation in 2022-01-15 15:48:26 98 /min [facility] by [facility] Pulse oximetry Branch Body temperature 2022-01-15 13:32:00 37.11 Irene [facility] Body height 2022-01-15 13:32:00 154.9 cm [facility] Body weight 2022-01-15 13:32:00 54.432 kg [facility] BMI 2022-01-15 13:32:00 22.67 kg/m2 [facility] Systolic blood 2022-01-09 00:37:11 127 mm[Hg] [facility] Diastolic blood 2022-01-09 00:37:11 90 mm[Hg] [facility] Heart rate 2022-01-09 00:37:11 94 /min [facility] Body temperature 2022-01-09 00:37:11 37.11 Irene [facility] Respiratory rate 2022-01-09 00:37:11 16 /min [facility] Oxygen saturation in 2022-01-09 00:37:11 97 /min [facility] Arterial blood by [facility] Pulse oximetry Branch Body height 2022-01-08 23:03:00 154.9 cm [facility] Body weight 2022-01-08 23:03:00 58.06 kg [facility] [place] BMI 2022-01-08 23:03:00 24.19 kg/m2 [facility] Systolic blood 2021-12-12 18:00:00 126 mm[Hg] Univer sity of [facility] Diastolic blood 2021-12-12 18:00:00 87 mm[Hg] Unive rsity of [facility] Heart rate 2021-12-12 18:00:00 86 /min [facility] Body temperature 2021-12-12 18:00:00 36.89 Irene [facility] Respiratory rate 2021-12-12 18:00:00 18 /min [facility] Body height 2021-12-12 18:00:00 154.9 cm [facility] Body weight 2021-12-12 18:00:00 57.153 kg [facility] BMI 2021-12-12 18:00:00 23.81 kg/m2 [facility] Procedures Procedure Date / Time Performing Clinician Source Performed ASSIGNMENT OF BENEFITS 2022-11-21 19:49:02 Doctor Unassigned, No [facility] CONSENT/REFUSAL FOR 2022-11-21 18:03:25 Doctor Unassigned, No [facility] [place] [facility] CONSENT/REFUSAL FOR 2022-09-05 13:42:02 Doctor Unassigned, No [facility] [place] [facility] Name [facility] LIPASE 2022-07-31 23:13:00 Manju Newell [facility] TEST, SERUM 2022-07-31 23:13:00 [facility] MET[facility]OLIC PAN[facility] 2022-07-31 23:13:00 Manju Newell [facility] [place] ([id number]) [facility] CBC WITH DIFF 2022-07-31 23:13:00 [facility] CONSENT/REFUSAL FOR 2022-07-31 22:49:17 Doctor [facility]igned, No [facility] XR ANKLE 3+ VW RIGHT 2022-07-15 16:00:00 Cari Kaur [facility] XR FOOT 3+ VW RIGHT 2022-07-15 16:00:00 NatashaCari draper [facility] XR FOOT 3+ VW RIGHT 2022-07-15 16:00:00 Cari Kaur [facility] PATIENT FINANCIAL 2022-07-15 15:25:53 Doctor Unassigned, No [facility] POLICY [facility] POCT MOLECULAR STREP 2022-06-23 16:06:00 Unknown, Attending [facility] ASSIGNMENT OF BENEFITS 2022-06-23 15:18:28 Doctor Unassigned, No [facility] COMP. METABOLIC PANEL 2022-05-05 19:14:[address] [facility] ([id number]) [facility] CBC WITH DIFF 2022-05-05 19:14:00 Karon Norton [facility] POCT TEST 2022-05-05 19:00:00 Karon Norton [facility] URINALYSIS 2022-05-05 18:58:00 Karon Norton [facility] CT ABDOMEN PELVIS WO 2022-04-26 15:11:00 Zion Bridges [facility] CONTRAST [facility] COMP. METABOLIC PANEL 2022-04-26 14:49:00 Zion Bridges [facility] ([id number]) [facility] [place] CBC WITH DIFF 2022-04-26 14:49:00 [facility] 2022-04-26 14:49:00 Singer [facility] POCT TEST 2022-04-26 14:45:00 Zion Bridges [facility] CONSENT/REFUSAL FOR 2022-04-26 14:22:29 Doctor Unassigned, No [facility] [place] [facility] POCT TEST 2022-04-26 01:22:00 Zion Bridges [facility] ASSIGNMENT OF BENEFITS 2022-04-26 00:54:02 Doctor Unassigned, No [facility] URINALYSIS 2022-04-26 00:45:00 Singer [facility] CONSENT/REFUSAL FOR 2022-04-26 00:16:47 Doctor Unassigned, No [facility] [place] [facility] BASIC METABOLIC PANEL 2022-04-07 22:35:00 Olamide Garvin [facility] (NA, K, CL, CO2, [facility] GLUCOSE, BUN, CREATININE, CA) CBC WITH DIFF 2022-04-07 22:35:00 Olamide Garvin [facility] URINALYSIS 2022-04-07 21:36:00 Olamide Garvin [facility] URINE DRUG (IMMUNOASSAY) 2022-04-07 21:36:00 Olamide Garvin [facility] [place] - COMPREHENSIVE DRUG Medical Bra [facility] SCREEN W/O REFLEX CONSENT/REFUSAL FOR 2022-04-07 19:29:15 Doctor Unassigned, No [facility] [place] [facility] POCT TEST 2022-03-24 14:07:00 Kellie Duncan [facility] CONSENT/REFUSAL FOR 2022-03-24 13:27:20 Doctor Unassigned, No [facility] [place] [facility] Name [facility] [place] CT ABDOMEN PELVIS WO 2022-03-15 14:09:[address] [facility] URINALYSIS 2022-03-15 13:53:00 Anna Gould [facility] POCT TEST 2022-03-15 13:52:00 Anna Gould [facility] CONSENT/REFUSAL FOR 2022-03-15 13:37:02 Doctor Unassigned, No [facility] [place] [facility] Name [facility] POCT TEST 2022-03-11 14:59:00 Angelica Viveros [facility] FLU VACC (), 6 2022-02-27 13:34:55 Vijay Martinez [facility] MO-64 YRS, .5ML, IM, [facility] QUAD (FLUCELVAX) NOTICE OF PRIVACY 2022-02-21 06:06:30 Doctor Unassigned, No [facility] PRACTICES [facility] CONSENT/REFUSAL FOR 2022-02-21 06:03:41 Doctor Unassigned, No [facility] [place] [facility] Name [facility] XR ANKLE <3 VW RIGHT 2022 17:56:42 Maggie Hamilton [facility] CT ABDOMEN PELVIS W 2022 17:44:17 Maggie Hamilton [facility] CT TRAUMA CERVICAL SPINE 2022 17:43:49 Maggie Hamilton [facility] WO CONTRAST [facility] POCT TEST 2022 17:27:00 Maggie Hamilton [facility] COMP. METABOLIC PANEL 2022 17:17:00 Maggie Hamilton [facility] ([id number]) [facility] CBC WITH DIFF 2022 17:17:00 Maggie Hamilton [facility] CONSENT/REFUSAL FOR 2022 16:53:13 Doctor Unassigned, No [facility] [place] [facility] Name [facility] US GALL BLADDER 2022-01-18 12:31:09 Bernardo Levy [place] [facility] US PELVIS COMPLETE WITH 2022-01-18 12:21:13 Melvin Zhao [facility] TRANSVAGINAL [facility] CT ABDOMEN PELVIS W 2022-01-18 11:20:50 Melvin Zhao [facility] CONTRAST [facility] POCT TEST 2022-01-18 10:57:00 Jayy Kennedy [facility] COVID-19 (ID NOW RAPID 2022-01-18 10:57:00 Jayy Kennedy [facility] TESTING) [facility] URINALYSIS 2022-01-18 10:47:00 Jayy Kennedy [facility] LIPASE 2022-01-18 10:29:00 Jayy Kennedy [facility] TEST, SERUM 2022-01-18 10:29:00 [place] [facility] HEPATIC FUNCTION PANEL 2022-01-18 10:29:00 Jayy Kennedy [facility] ([id number]) (ALB,T.PRO,BILI [facility] T,BU/BC,ALT,AST,ALK PHOS) BASIC METABOLIC PANEL 2022-01-18 10:29:00 Jayy Kennedy [facility] (NA, K, CL, CO2, [facility] GLUCOSE, BUN, CREATININE, CA) CBC WITH DIFF 2022-01-18 10:29:00 Haroon Kennedyian Torrie [facility] CONSENT/REFUSAL FOR 2022-01-18 10:13:31 Doctor Unassigned, No [facility] [place] [facility] Name [facility] CT HEAD WO CONTRAST 2022-01-15 15:22:29 Danita [facility] TEST, SERUM 2022-01-15 14:36:00 Danita [facility] BASIC METABOLIC PANEL 2022-01-15 14:36:00 Danita [facility] (NA, K, CL, CO2, [facility] GLUCOSE, BUN, CREATININE, CA) CBC WITH DIFF 2022-01-15 14:36:00 Danita [facility] CONSENT/REFUSAL FOR 2022-01-15 13:28:12 Doctor Unassigned, No [facility] Name [facility] XR CERVICAL SPINE 4 VW 2022-01-09 00:29:16 Humberto Ochoa [facility] XR LUMBAR SPINE 4 VW 2022-01-09 00:29:16 [facility] THORACIC 3 VW 2022-01-09 00:29:16 Gabriela Humberto [facility] URINALYSIS 2022-01-08 23:50:00 Gabriela Humberto [facility] CONSENT/REFUSAL FOR 2022-01-08 22:51:08 Doctor Unassigned, No [facility] Name [facility] GALV ONLY - VAGINAL 2021-12-12 18:37:00 Prasanna Vargas [facility] PATHOGENS BY [facility] ACID TESTING URINE CULTURE 2021-12-12 18:32:00 Prasanna Vargas [place] [facility] POCT TEST 2021-12-12 18:31:00 Prasanna Vargas [facility] POCT URINALYSIS W/O 2021-12-12 18:31:00 Prasanna Vargas [facility] SPECIFIC GRAVITY [facility] Encounters Start End Encounter Admission Attending Care Care Encounter Source Date/Time Date/Time Type Type Clinicians Facility Department ID 2021-03-14 Emergency [facility] [facility] [id number] Univers 03:14:31 ity of [facility] 2021-03-13 Emergency [facility] [id number] Univers 20:05:20 ity of [facility] 2021-03-13 Emergency [facility] [id number] Univers 12:48:28 ity of [facility] 2021-03-13 Emergency [facility] [id number] Univers 02:43:51 ity of [facility] 2021-03-13 Emergency [facility] [id number] Univers 00:27:09 ity of [facility] 2021-03-12 Emergency [facility] [id number] Univers 22:10:36 ity of [facility] 2021-03-12 Emergency [facility] [id number] Univers 20:04:05 ity of [facility] 2021-03-12 Emergency [facility] [id number] Univers 15:25:05 ity of [facility] 2021-03-12 Emergency [facility] [id number] Univers 11:43:36 ity of [facility] 2021-03-12 Emergency [facility] [id number] Univers 07:41:37 ity of [facility] 2021-03-12 Emergency [facility] [id number] Univers 05:43:47 ity of [facility] 2021-03-12 Emergency [facility] [id number] Univers 03:43:41 ity of [facility] 2021-03-12 Emergency [facility] [id number] Univers 01:31:27 ity of [facility] 2021-03-12 Emergency X [facility] ERT [id number] Univers 00:56:44 ity of [facility] 2021-03-12 Emergency [facility] [id number] Univers 00:56:31 ity of [facility] 2021-03-11 Emergency [facility] [id number] Univers 17:47:02 ity of [facility] 2021-03-11 Emergency [facility] [id number] Univers 16:27:15 ity of [facility] 2021-03-11 Emergency [facility] [id number] Univers 12:00:58 ity of [facility] 2021-03-11 Emergency [facility] [id number] Univers 10:33:59 ity of [facility] 2021-03-11 Emergency [facility] [id number] Univers 01:36:52 ity of [facility] 2021-03-10 Emergency [facility] [id number] Univers 23:35:34 ity of [facility] 2021-03-10 Emergency [facility] [id number] Univers 19:06:16 ity of [facility] 2021-03-10 Emergency [facility] [id number] Univers 12:39:47 ity of [facility] 2021-03-10 Emergency [facility] [id number] Univers 06:54:04 ity of [facility] 2021-03-09 Outpatient P [facility] [id number] Univers 13:25:44 ity of [facility] 2021-03-09 Outpatient P [facility] [id number] Univers 13:08:01 ity of [facility] 2021-03-09 Outpatient P [facility] [id number] Univers 12:37:25 ity [facility] 2021-03-09 Outpatient P [facility]IS [id number] Univers 11:51:20 ity [facility] 2022-12-28 2022-12-28 Outpatient ERICKSON_R [facility] [id number] [place] 00:00:00 00:00:00 818 [facility] 2022-12-14 2022-12-14 Outpatient [facility] [id number] [place] 18:37:13 18:37:13 0804 [facility] 2022-12-13 2022-12-13 Outpatient ERICKSON_R [facility] [id number] [place] 00:00:00 00:00:00 803 [facility] 2022-12-12 2022-12-12 Outpatient R PRASANNA VARGAS [facility] [id number] Univers 09:30:00 09:30:00 ity [facility] 2022-11-21 2022-11-21 Emergency X OSIRIS [facility] ERT [id number] Univers 13:08:00 16:45:00 MANJU [facility] 2022-11-21 2022-11-21 Emergency Zion Bridges [facility] 1.2.840. 114 [id number] Univers 13:08:00 16:45:00 [facility] 350.1.13. 10 [facility] 4.2.7.2.686 [facility] [id number] [facility] 084 [place] 2022-11-18 2022-11-18 Outpatient [facility] [id number] [place] 10:08:00 10:08:00 0709 F Jeffery 2022-11-15 2022-11-15 Outpatient R LIAN GREENE [facility] [id number] Univers 09:40:00 09:40:00 LIAN GREENE itchino [facility] 2022-11-09 2022-11-09 Outpatient [facility] [id number] [place] 15:26:18 15:26:18 0630 F Rapelje 2022-11-06 2022-11-06 Outpatient R JUAN [facility] [id number] Univers 13:00:00 13:00:00 VIJAY lechuga of [facility] 2022-10-29 2022-10-29 Patient Jc [facility] 1.2.840.114 [id number] Univers 00:00:00 00:00:00 Secure Msg Lian HEALTH 350.1.13.10 ity of [place] 4.2.7.2.686 Martin as TOÑO?BLEA [id number] Vt dical MIKI 044 [facility] OFFICE [facility] 2022-10-29 2022-10-29 Patient Prasanna Vargas [facility] 1.2.016.092 [id number] Univers 00:00:00 00:00:00 Secure Msg Cam [place] 350.1.13.10 ity of [place].7.2.[place] [id number] Vt dical NAL 134 [facility] 2022-10-03 2022-10-03 Letter Gurjit Lim [facility] ..840.114 [id number] Univers 00:00:00 00:00:00 (Out) HEALTH 350.1.13.10 it y of [place] 4.2.7.2.686 Martin as TOÑO?BLEA [id number] Vt dicaliyah [place] 092 [facility] OFFICE [facility] 2022-10-02 2022-10-02 Outpatient R SHARMIN [facility] [id number] Univers 10:00:00 10:00:00 , CELINA it y of [facility] 2022-10-01 2022-10-01 Outpatient R ARUJN [facility] [id number] Univers 09:40:00 09:40:00 REJI lechuga o f [facility] 2022-09-25 2022-09-25 Telephone Ponce [facility] ..970.104 [id number] Univers 00:00:00 00:00:00 Rad Cuello [place] 350.1.13.10 [facility] 4.2.7.2.686 [place] [id number] Vt dical NAL 059 [facility] 2022-09-21 2022-09-21 [facility] [id number] Univers 09:30:00 09:30:00 KASSANDRA chino [facility] 2022-09-21 2022-09-[address] [facility] 1.2.840.114 [id number] Univers 00:00:00 00:00:00 (Out) Kassandra HEALTH 350.1.13.10 it y of [place] 4.2.7.2.686 [place] as TOÑO?BLEA [id number] [address] OFFICE [facility] 2022-09-21 2022-09-[address] [facility] 1.2.516.057 [id number] Univers 00:00:00 00:00:00 Kassandra HEALTH 350.1.13.10 it y of [place] 4.2.7.2.686 [place] as TOÑO?BLEA [id number] [address] 2022-09-21 2022-09-[address] [facility] 1.2.427.343 [id number] Univers 00:00:00 00:00:00 Kassandra HEALTH 350.1.13.10 it y of [place] 4.2.7.2.686 [place] as TOÑO?BLEA [id number] [address] 2022-09-14 2022-09-14 [facility] [id number] Univers 09:30:00 09:30:00 KASSANDRA chino [facility] 2022-09-12 2022-09-[address] [facility] 1.2.235.427 [id number] Univers 00:00:00 00:00:00 Kassandra HEALTH 350.1.13.10 it y of [place] 4.2.7.2.686 [place] as TOÑO?BLEA [id number] [address] 2022-09-07 2022-09-07 [facility] [id number] Univers 11:30:00 11:30:00 [facility] 2022-09-05 2022-09-05 Emergency X GUTIERREZ [facility] ERT [id number] Univers 08:44:00 13:15:00 CYNISE ity of [facility] 2022-09-05 2022-09-[address] [facility] 1.2.496.988 [id number] Univers 08:44:00 13:15:00 Cynise LULU 350.1.13.10 i ty of [place] 4.2.7.2.686 [place] [id number] [address] 2022-09-04 2022-09-04 Telephone Lexy [facility] 1.2.424.755 [id number] Univers 00:00:00 00:00:00 Kassandra HEALTH 350.1.13.10 it y of [place] 4.2.7.2.686 [place] as TOÑO?BLEA [id number] [address] OFFICE [facility] 2022-09-04 2022-09-04 Patient Ponce, [facility] 1..840.114 [id number] Univers 00:00:00 00:00:00 Secure Msg Rad Cuello LUL[place] 350.1.13.10 ity of [place] 4.2.7.2.686 [place] [facility] [phone] Vt dicaliyah [facility] 2022-08-29 2022-08-29 Outpatient R SHARMIN [facility] [id number] Univers 09:00:00 09:00:00 , CELINA it y of [facility] 2022-08-14 2022-08-14 Patient Doctor [facility] 1.2.840.114 [id number] Univers 00:00:00 00:00:00 Secure Msg Unassigned, HEALTH 350.1.13.10 ity of [place] 4.2.7.2.686 Martin as TOÑO?BLEA [id number] [address] MEDICAL OFFICE [facility] 2022-07-31 2022-07-31 Emergency X [facility] ERT [id number] Univers 17:56:00 20:30:00 MANJU it y of [facility] 2022-07-31 2022-07-31 [facility] 1.2.459.419 [id number] Univers 17:56:00 20:30:00 [facility] 350.1.13.10 ity of [place] 4.2.7.2.686 [place] [id number] [facility] [address] 2022-07-15 2022-07-15 Outpatient R [facility] [id number] [facility] 09:46:45 23:59:00 CARI ity o f [facility] 2022-07-15 2022-07-15 [facility] 1.2.840.114 [id number] Univers 09:46:45 23:59:00 Encounter [facility] 350.1.13.10 ity of [place] 4.2.7.2.686 [place] as TOÑO?BLEA [id number] [facility] [address] [place] MEDICAL OFFICE [facility] 2022-07-15 2022-07-15 [facility] 1.2.840.114 [id number] [facility] 09:46:45 23:59:00 Encounter [facility] 350.1.13.10 ity of [place] 4.2.7.2.686 [place] as TOÑO?BLEA [id number] [facility] [address] [place] MEDICAL OFFICE [facility] 2022-07-15 2022-07-15 Urgent [facility] 1.2.840 .114 [id number] [facility] 09:20:00 10:29:17 Care Unknown, Attending [facility] 350.1.13.10 ity of [place] 4.2.7.2.686 [place] as TOÑO?BLEA [id number] [facility] [address] [place] MEDICAL OFFICE BUILDING 2022-07-15 2022-07-15 Orders Doctor JORDAN 1.2.840.114 [id number] Univers 00:00:00 00:00:00 Only Unassigned, YAZMIN 350.1.13.10 ity of [place] [facility] 4.2.7.2.686 [place] as [id number] [facility] [address] 2022-06-23 2022-06-23 Outpatient [facility] [id number] Univers 09:20:00 10:27:39 [facility] 2022-[facility]-23 2022-06-23 Urgent Omaghomi, Omayemi [facility] 1.2.840. 114 [id number] Univers 09:20:00 10:27:39 Care Unknown, Attending HEALTH 350.1.13.10 [facility] 4.2.7.2.686 [place] as TOÑO?BLEA [id number] Vt dical [address] MEDICAL OFFICE BUILDING 2022-06-23 2022-06-23 Orders Doctor JORDAN 1.2.840.114 [id number] Univers 00:00:00 00:00:00 Only Unassigned, YAZMIN 350.1.13.10 ity of [facility] 4.2.7.2.686 [place] as [id number] [facility] [address] [place] 2022-06-15 2022-06-15 Outpatient Farzana GREENE [facility] [id number] Univers 09:40:00 09:40:00 LIAN [facility] 2022-05-29 2022-05-29 Outpatient Farzana PUGH [facility] [id number] Univers 08:00:00 08:00:00 [facility] 2022-05-15 2022-05-15 Outpatient Farzana MILLER [facility] [id number] Univers 09:20:00 09:20:00 BENNETT [facility] 2022-05-11 2022-05-11 Outpatient Farzana PUGH [facility] [id number] Univers 09:30:00 09:30:00 KASSANDRA [facility] 2022-05-05 2022-05-05 Emergency X ERROL [facility] ERT [id number] Univers 12:26:00 16:11:00 KARON [facility] 2022-05-05 2022-05-[address] [facility] 1.2.840.114 [id number] Univers 12:26:00 16:11:00 Karon METCALFDAYAMI 350.1.13.10 i ty [facility] 4.2.7.2.686 [place] [id number] [facility] [address] 2022-05-01 2022-05-01 Outpatient PRASANNA LOOMIS [facility] [id number] Univers 00:00:00 00:00:00 itchino [facility] 2022-04-26 2022-04-26 Emergency X SINGER [facility] ERT [id number] Univers 08:30:00 09:59:00 ZION lechuga [facility] 2022-04-26 2022-04-[address] 1.2.286.286 [id number] Univers 08:30:00 09:59:00 Zion LAWSON 350.1.13.10 i ty of [place] 4.2.7.2.686 [facility] [id number] [address] 2022-04-25 2022-04-25 Emergency X GUTIERREZ [facility] ERT [id number] Univers 18:23:00 21:55:00 KENNEDY lechuga [facility] 2022-04-25 2022-04-[address] [facility] 1.2.578.286 [id number] Univers 18:23:00 21:55:00 Kennedy [facility] 350.1.13.10 i ty of [place] 4.2.7.2.686 [facility] [id number] [address] 2022-04-19 2022-04-19 Outpatient R JC [facility] [id number] Univers 10:00:00 10:00:00 LIAN ankush [facility] 2022-04-12 2022-04-[address] [facility] 1.2.465.967 [id number] Univers 00:00:00 00:00:00 KassandraPortero 350.1.13.10 it y of [place] 4.2.7.2.686 [place] as TOÑO?BLEA [id number] [address] MEDICAL OFFICE [facility] 2022-04-11 2022-04-[address] [facility] 1.2.840.114 [id number] Univers 00:00:00 00:00:00 [facility] 350.1.13.10 ity of [place] 4.2.7.2.686 Martin as TOÑO?BLEA [id number] [address] MEDICAL OFFICE BUILDING 2022-04-10 2022-04-[address] [facility] 1.2.811.855 [id number] Univers 00:00:00 00:00:00 Banno 350.1.13.10 it y of [place] 4.2.7.2.686 Martin as TOÑO?BLEA [id number] [address] OFFICE [facility] 2022-04-09 2022-04-[address] [facility] 1.2.840.114 [id number] Univers 09:30:00 09:30:00 Visit Banno 350.1.13.10 it y of [place] 4.2.7.2.686 [place] as TOÑO?BLEA [id number] [address] OFFICE [facility] 2022-04-09 2022-04-09 Outpatient R LEXY [facility] [id number] Univers 09:30:00 09:21:44 KASSANDRA chino [facility] 2022-04-07 2022-04-07 Emergency X [facility] ERT [id number] Univers 13:41:00 17:49:00 OLAMIDE [facility] 2022-04-07 2022-04-07 Emergency [facility] 1.2.981.270 [id number] Univers 13:41:00 17:49:00 Olamidenoah LAWSON 350.1.13.10 ity of [place] 4.2.7.2.686 [place] [facility] [id number] [address] 2022-04-04 2022-04-[address] [facility] 1.2.326.858 [id number] Univers 00:00:00 00:00:00 Banno 350.1.13.10 it y of [place] 4.2.7.2.686 Martin as TOÑO?BLEA [id number] [address] OFFICE [facility] 2022-04-02 2022-04-02 [facility] [id number] Univers 10:30:00 10:30:00 KASSANDRA chino [facility] 2022-03-28 2022-03-28 Patient Doctor [facility] 1.2.840.114 [id number] Univers 00:00:00 00:00:00 Secure Msg Unassigned, [facility] 350.1.13.10 ity of [place] 4.2.7.2.686 Martin as TOÑO?BLEA [id number] [address] 2022-03-24 2022-03-24 Emergency X PERLA, [facility] ERT [id number] Univers 07:35:00 13:11:00 KELLIE ity [facility] 2022-03-24 2022-03-24 [facility] 1.2.290.607 [id number] Univers 07:35:00 13:11:00 Kellie Duc [place] 350.1.13.10 ity of [place] 4.2.7.2.686 [place] [id number] [address] 2022-03-23 2022-03-23 Outpatient [facility] [id number] [facility] 10:30:00 10:30:00 KASSANDRA ity [facility] 2022-03-23 2022-03-23 Telephone [facility] 1.2.840.114 [id number] Univers 00:00:00 00:00:00 [facility] 350.1.13.10 ity of [place] 4.2.7.2.686 Martin as TOÑO?BLEA [id number] [address] 2022-03-22 2022-03-22 Telephone [facility] 1.2.840.114 [id number] Univers 00:00:00 00:00:00 [facility] 350.1.13.10 ity of [place] 4.2.7.2.686 Martin as TOÑO?BLEA [id number] [address] 2022-03-22 2022-03-[address] [facility] 1.2.840.114 [id number] Univers 00:00:00 00:00:00 [facility] 350.1.13.10 ity of [place] 4.2.7.2.686 Martin as TOÑO?BLEA [id number] [address] [facility] 2022-03-21 2022-03-21 Telephone Yoselin [facility] 1.2.840.114 [id number] Univers 00:00:00 00:00:00 [facility] 350.1.13.10 ity of [place] 4.2.7.2.686 [place] as TOÑO?BLEA [id number] [facility] [address] 2022-03-15 2022-03-15 Outpatient R ARJUN [facility] [id number] Univers 14:00:00 14:36:19 BINPEARL ity o f [facility] 2022-03-15 2022-03-[address] [facility] 1.2.840.114 [id number] Univers 14:00:00 14:36:19 Visit Reji [place] 350.1.13.10 ity of [place] 4.2.7.2.686 [place] [facility] [id number] Vt whit [facility] 059 [facility] 2022-03-15 2022-03-15 Emergency X BRYANNA [facility] ERT [id number] Univers 08:40:00 10:47:00 ANNA chino [facility] 2022-03-15 2022-03-[address] [facility] 1.2.840.114 [id number] Univers 08:40:00 10:47:00 Anna [facility] 350.1.13.10 i ty of [place] 4.2.7.2.686 [place] [id number] [address] 2022-03-14 2022-03-14 Outpatient R PRASANNA VARGAS [facility] [id number] Univers 10:30:00 10:30:00 ity of [facility] 2022-03-11 2022-03-11 Emergency X FELICE [facility] ERT [id number] Univers 09:22:00 12:15:00 SHINBECCA itchino [facility] 2022-03-11 2022-03-[address] [facility] 1.2.840.114 [id number] Univers 09:22:00 12:15:00 Angelica [facility] 350.1.13.10 i ty of [place] 4.2.7.2.686 [place] [facility] [id number] [place] [id number] [place] 2022-03-06 2022-03-06 Outpatient Farzana PUGH [facility] [id number] Univers 08:30:00 08:30:00 KASSANDRA chino [facility] 2022-03-02 2022-03-02 Telephone Yoselin [facility] 1.2.840.114 [id number] Univers 00:00:00 00:00:00 [facility] 350.1.13.10 ity of [place] 4.2.7.2.686 Martin as TOÑO?BLEA [id number] [address] MEDICAL OFFICE [facility] 2022-02-27 2022-02-27 Outpatient Farzana PUGH [facility] [id number] Univers 09:30:00 09:49:42 KASSANDRA lechuga [facility] 2022-02-27 2022-02-[address] [facility] 1.2.840.114 [id number] Univers 09:30:00 09:49:42 Visit [facility] 350.1.13.10 it y of [place] 4.2.7.2.686 Martin as TOÑO?BLEA [phone] [address] OFFICE [facility] 2022-02-27 2022-02-[address] [facility] 1.2.840.114 [id number] Univers 08:00:00 09:12:17 Visit [facility] [id number] it y of [place] 4.2.7.2.686 [place] TOÑO?BLEA [phone] [address] MEDICAL OFFICE [facility] 2022-02-26 2022-02-26 Outpatient Farzana PUGH [facility] [id number] Univers 11:30:00 11:30:00 KASSANDRA lechuga [facility] 2022-02-21 2022-02-21 Emergency X ALFONSO [facility] ERT [id number] Univers 01:20:00 03:44:00 MAGGIE lechuga [facility] 2022-02-21 2022-02-[address] [facility] 1.2.840.114 [id number] Univers 01:20:00 03:44:00 Maggie LAWSON 350.1.13.10 ity of [place] 4.2.7.2.[place] [phone] [address] 2022-02-19 2022-02-19 Patient Robb [facility] 1.2.840.114 [id number] Univers 00:00:00 00:00:00 Secure Msg Kendal [facility] 350.1.13.10 ity of [place] 4.2.7.2.686 [place] as TOÑO?BLEA [phone] [address] OFFICE [facility] 2022-02-19 2022-02-[address] [facility] 1.2.840.114 [id number] Univers 00:00:00 00:00:00 Secure Msg Kendal Amaral HEALTH 350.1.13.10 ity of [place] 4.2.7.2.686 [place] as TOÑO?BLEA [phone] [address] 2022-02-19 2022-02-19 Patient Annie [facility] 1.2.578.295 [id number] Univers 00:00:00 00:00:00 Secure Msg Ade SAM 350.1.13.10 ity of [facility] 4.2.7.2.[place] [id number] [address] 2022 [address] ERT [id number] Univers 11:58:00 15:13:00 MAGGIE ity of [facility] 20[address] [facility] 1.2.840.114 [id number] Univers 11:58:00 15:13:00 Maggie LAWSON 350.1.13.10 ity of [place].2.[place] [id number] [address] 2022-02-09 2022-02-09 Outpatient R BRANDON, [facility] [id number] Univers 09:00:00 09:00:00 CRICKET davis [facility] 2022-02-06 2022-02-06 Outpatient R JUAN [facility] [id number] Univers 10:00:00 10:00:00 VIJAY lechuga [facility] 2022-02-05 2022-02-05 Nurse Nurse, Filippo [facility] 1.2.840.114 [id number] Univers 09:45:00 10:05:00 [facility] 350.1.13.10 ity of [place] 4.2.7.2.686 [place] as TOÑO?BLEA [phone] Vt dical KNEY [address] MEDICAL OFFICE BUILDING 2022-02-05 2022-02-05 Out[facility] [id number] Univers 09:20:00 09:20:00 FLACO lechuga o f [facility] 2022-01-26 2022-01-26 Case Prasanna Vargas [facility] 1.2.207.975 [id number] Univers 00:00:00 00:00:00 Management Cam [place] 350.1.13.10 ity [facility] 4.2.[place] [phone] Vt dical NAL [address] BUILDING 2022-01-22 2022-01-22 Outpatient R VÍCTORKassandra [facility] [id number] Univers 11:00:00 11:00:00 VIJAY lechuga [facility] 2022-01-18 2022-01-18 Emergency X GARDENIA [facility] ERT [id number] Univers 05:17:00 10:25:00 BERNARDO lechuga [facility] 2022-01-18 2022-01-18 Emergency Jayy Kennedy W TRAUMA 1.2.840.11 [id number] Univers 05:17:00 10:25:00 Bernardo Levy CENTER 350.1.13.10 [place] [id number] [address] 2022-01-15 2022-01-15 Emergency X DANITA [facility] ERT [id number] Univers 08:34:00 10:49:00 MAURA lechuga [facility] 2022-01-15 2022-01-15 Emergency Larry Perez R [facility] 1.2.840.1 14 [id number] Univers 08:34:00 10:49:00 Maura Samayoa LULU 350.1.13.10 ity [facility] 4.2.7.2.686 [facility] [id number] [address] 2022-01-08 2022-01-08 Emergency X GABRIELA, [facility] ERT [id number] Univers 18:04:00 20:09:00 HUMBERTO [facility] 2022-01-08 2022-01-[address] [facility] 1.2.840.114 [id number] Univers 18:04:00 20:09:00 Humberto LULU 350.1.13.10 i ty [facility] 4.2.7.2.686 [facility] [id number] [address] 2021-12-12 2021-12-12 Outpatient Farzana CARNES [facility] [id number] Univers 13:30:00 13:40:21 TETO [facility] 2021-12-12 2021-12-12 Office Prasanna Vargas [facility] 1.2.840.114 [id number] Univers 13:30:00 13:40:21 Visit Teto Carnes 350.1.13.10 ity [facility] 4.2.7.2.686 [facility] PROFESSIO [phone] Vt dic[address] 2021-12-12 2021-12-12 Outpatient Farzana CARNES [facility] [id number] Univers 13:30:00 13:40:21 TETO [facility] 2021-12-12 2021-12-12 Outpatient Farzana CARNES [facility] [id number] Univers 13:30:00 13:40:21 TETO [facility] 2021-12-11 2021-12-11 Outpatient Farzana BRADFORD [facility] [id number] Univers 16:15:00 16:15:00 ADE [facility] 2021-12-05 2021-12-05 Outpatient Farzana OMALLEY [facility] [id number] Univers 14:15:00 14:15:00 ROMULO [facility] 2021-11-28 2021-11-28 Emergency X ERROL [facility] ERT [id number] Univers 08:49:00 11:02:00 KARON chino [facility] 2021-11-28 2021-11-28 Emergency Errol [facility] 1.2.840.114 [id number] Univers 08:49:00 11:02:00 [facility] 350.1.13.10 i ty of [place] 4.2.7.2.686 [facility] [id number] [address] 2021-11-24 2021-11-24 Emergency X DEV, Kaycee [facility] ERT [id number] Univers 18:14:00 21:04:00 ity [facility] 2021-11-24 2021-11-24 Emergency Kaycee Méndez [facility] 1.2.840.114 [id number] Univers 18:14:00 21:04:00 Sharlene LAWSON 350.1.13.10 i ty of [place] 4.2.7.2.686 [facility] [id number] [address] 2021-11-24 2021-11-[address] [facility] 1.2.840.114 [id number] Univers 00:00:00 00:00:00 Cricket Lopez [employer] 350.1.13.10 ity [facility] 4.2.7.2.686 [place] as MATERNAL [id number] Med ical & CHILD 107 [facility] 2021-11-20 2021-11-[address] [facility] 1.2.840.114 [id number] Univers 00:00:00 00:00:00 Secure [facility] 350.1.13.10 ity [facility] 4.2.7.2.686 [place] as TOÑO?BLEA [id number] Vt whit [address] MEDICAL OFFICE BUILDING 2021-11-19 2021-11-19 Letter JORDAN Santacruz 1.2.840.114 [id number] Univers 00:00:00 00:00:00 (Out) Leslie ARCE 350.1.13.10 it y of [facility] 4.2.7.2.686 [place] as [id number] [address] 2021-11-18 2021-11-18 Out[facility] [id number] Univers 10:41:40 23:59:00 FLACO lechuga o f [facility] 2021-11-18 2021-11-18 Hospital [facility] 1.2.115.672 [id number] Univers 10:41:40 23:59:00 Encounter [facility] 350.1.13.10 ity of [place] 4.2.7.2.686 [place] as TOÑO?BLEA [id number] [facility] MARY [address] MEDICAL OFFICE [facility] 2021-11-18 2021-11-18 Urgent [facility] 1.2.840.114 [id number] Univers 10:20:00 10:53:20 Care [facility] 350.1.13.10 i ty of [place] 4.2.7.2.686 [place] as TOÑO?BLEA [id number] [facility] 370 [facility] OFFICE [facility] 2021-11-09 2021-11-09 Outpatient R [facility] [id number] Univers 10:30:00 10:30:00 CELINA lechuga [facility] 2021-10-25 2021-10-25 Urgent Ramsey Medranoanda [facility] ..840.114 [id number] Univers 13:20:00 13:20:00 Care [facility] 350..13.10 ity of [place] 4.2.7.2.686 [place] as TOÑO?BLEA [id number] [facility] [address] MEDICAL OFFICE [facility] 2021-10-25 2021-10-25 Outpatient R HARDEEP [facility] [id number] Univers 13:20:00 12:47:59 ILEANA lechuga [facility] 2021-10-25 2021-10-[address] [facility] 1.2.840.114 [id number] Univers 00:00:00 00:00:00 Secure [facility]Nicklaus [facility] Cuedd 350.1.13.10 ity [facility] 4.2.7.2.686 [place] TOÑO?BLEA [id number] Vt whit [place] [address] MEDICAL OFFICE [facility] 2021-10-25 2021-10-25 Telephone Cotta, [facility] 1.2.097.691 [id number] Univers 00:00:00 00:00:00 Vijay HEALTH 350.1.13.10 it y of [place] 4.2.7.2.686 [place] as TOÑO?BLEA [id number] Vt whit [place] [address] MEDICAL OFFICE [facility] 2021-10-25 2021-10-25 Telephone Provider, [facility] 1.2.840.114 [id number] Univers 00:00:00 00:00:00 Ang Db HEALTH 350.1.13.10 it y of Urgent Care [place] 4.2.7.2.686 [place] TOÑO?BLEA [id number] Vt whit [place] 370 [facility] OFFICE [facility] 2021-10-25 2021-10-25 Telephone Nurse, Filippo [facility] 1.2.840.114 [id number] Univers 00:00:00 00:00:00 Db Urgent HEALTH 350.1.13.10 ity of Care [place] 4.2.7.2.686 [place] as TOÑO?BLEA [id number] Vt whit [place] 370 [facility] OFFICE [facility] 2021-10-24 2021-10-24 Outpatient Farzana OMALLEY [facility] [id number] Univers 10:15:00 10:15:00 ROMULO [facility] 2021-10-24 2021-10-24 Outpatient Farzana OMALLEY [facility] [id number] Univers 10:15:00 10:15:00 ROMULO [facility] 2021-10-11 2021-10-11 Outpatient Farzana OMALLEY [facility] [id number] Univers 09:30:00 09:30:00 ROMULO [facility] 2021-10-10 2021-10-10 Outpatient PRASANNA LOOMIS [facility] [id number] Univers 13:30:00 13:30:00 ity [facility] 2021-10-10 2021-10-10 Outpatient PRASANNA LOOMIS [facility] [id number] Univers 13:30:00 13:30:00 ity [facility] 2021-10-10 2021-10-10 Outpatient R PRASANNA VARGAS [facility] [id number] Univers 13:30:00 13:30:00 ity of [facility] 2021-10-10 2021-10-10 Outpatient R PRASANNA VARGAS [facility] [id number] Univers 13:30:00 13:30:00 ity of [facility] 2021-10-10 2021-10-10 Outpatient R PRASANNA VARGAS [facility] [id number] Univers 13:30:00 13:30:00 ity of [facility] 2021-10-10 2021-10-10 Outpatient R ALICIA [facility] [id number] Univers 13:30:00 13:30:00 ity of [facility] 2021-10-10 2021-10-10 Outpatient R [facility] [id number] Univers 13:30:00 13:30:00 ity [facility] 2021-10-05 2021-10-05 Patient Robb [facility] 1.2.840.114 [id number] Univers 00:00:00 00:00:00 Secure Msg Kendal HEALTH 350.1.13.10 ity of [place] 4.2.7.2.686 [place] as TOÑO?BLEA [id number] [address] OFFICE [facility] 2021-10-05 2021-10-05 Patient Robb [facility] 1.2.840.114 [id number] Univers 00:00:00 00:00:00 Secure g Kendal Amaral HEALTH 350.1.13.10 ity of [place] 4.2.7.2.686 [place] as TOÑO?BLEA [id number] [address] MEDICAL OFFICE [facility] 2021-10-04 2021-10-04 Pre Visit HILARIO Rodriguez 1.2.214.186 [id number] Univers 00:00:00 00:00:00 Outreach Melia TELLO 350.1.13.10 ity of [place].2.[place] [id number] [address] 2021-09-28 2021-09-28 [facility] 1.2.840.114 [id number] Univers 13:30:00 13:45:00 Visit Celina Cannon FLACO 350.1.13.10 [facility] 4.2.7.2.686 [place] [id number] [address] 2021-09-28 2021-09-28 Outpatient [facility] [id number] Univers 13:30:00 13:30:00 CELINA [facility] 2021-09-28 2021-09-28 Outpatient R [facility] [id number] Univers 13:30:00 13:30:[facility] 2021-09-28 2021-09-28 Patient [facility] 1.2.840.114 [id number] Univers 00:00:00 00:00:00 Secure Msg Celina Cannon FLACO 350.1.13.10 [facility] 4.2.7.2.686 [place] [id number] [address] 2021-09-27 2021-09-27 Outpatient R DEYVI, [facility] [id number] Univers 14:00:00 14:00:00 TETO [facility] 2021-09-27 2021-09-27 [facility] [id number] Univers 09:30:00 09:30:00 [facility] 2021-09-27 2021-09-27 Out[facility] [id number] Univers 09:30:00 09:30:00 [facility] 2021-09-27 2021-09-27 Outpatient [facility] [id number] Univers 09:30:00 09:30:00 [facility] 2021-09-26 2021-09-26 Outpatient R BRANDON, [facility] [id number] Univers 10:45:00 10:45:00 CRICKET lechuga o f [facility] 2021-09-26 2021-09-26 Outpatient R AKINLYNSEY [facility] [id number] Univers 10:45:00 10:45:00 CRICKET ity o f [facility] 2021-09-26 2021-09-26 Patient Juan [facility] 1.2.840.114 [id number] Univers 00:00:00 00:00:00 Secure [facility] 350.1.13.10 ity of [place] 4.2.7.2.686 [place] TOÑO?BLEA [id number] [facility] [address] MEDICAL OFFICE [facility] 2021-09-26 2021-09-26 Patient Juan [facility] 1.2.840.114 [id number] Univers 00:00:00 00:00:00 Secure Ms Vijay HEALTH 350.1.13.10 ity of [place] 4.2.7.2.686 [place] as TOÑO?BLEA [id number] [address] OFFICE [facility] 2021-09-25 2021-09-25 Urgent Flaco Boyd [facility] 1.2.840. 114 [id number] Univers 10:20:00 11:10:[address] [facility] 350.1.13.10 ity of [place] 4.2.7.2.686 [place] as TOÑO?BLEA [id number] [facility] 370 [facility] OFFICE [facility] 2021-09-25 2021-09-25 Outpatient R OLIVER [facility] [id number] Univers 10:20:00 11:10:42 FLACO lechuga o [facility] 2021-09-25 2021-09-25 Outpatient R OLIVER, [facility] [id number] Univers 10:20:00 10:20:00 FLACO ity o f [facility] 2021-09-25 2021-09-25 Outpatient R PRASANNA VARGAS [facility] [id number] Univers 10:00:00 10:00:00 ity of [facility] 2021-09-25 2021-09-[address] [facility] 1.2.840.114 [id number] Univers 00:00:00 00:00:00 [facility] 350.1.13.10 i ty of [place] 4.2.7.2.686 [place] as TOÑO?BLEA [phone] Vt dical KNEY [address] MEDICAL OFFICE [facility] 2021-09-25 2021-09-25 Patient Prasanna Vargas [facility] 1.2.949.428 [id number] Univers 00:00:00 00:00:00 Secure Msg Cam [place] 350.1.13.10 ity of [place] 4.2.7.2.686 [place] [phone] Me dical NAL 134 [facility] 2021-09-25 2021-09-25 Telephone Brandon [facility] 1.2.840.114 [id number] Univers 00:00:00 00:00:00 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 350.1.13.10 ity of [facility] 4.2.7.2.686 [place] as MATERNAL [phone] Med ical & CHILD 107 [facility] 2021-09-25 2021-09-25 Telephone Apurva [facility] 1.2.239.751 [id number] Univers 00:00:00 00:00:00 Celina SAM 350.1.13.10 ity of [facility] 4.2.7.2.686 [place] [id number] [address] 2021-09-15 2021-09-15 Patient Robb [facility] 1.2.840.114 [id number] Univers 00:00:00 00:00:00 Secure Msg Kendal Munir HEALTH 350.1.13.10 ity of [place] 4.2.7.2.686 [place] as TOÑO?BLEA [id number] Vt dical KNEY 044 [facility] OFFICE [facility] 2021-09-15 2021-09-15 Patient Robb [facility] 1.2.840.114 [id number] Univers 00:00:00 00:00:00 Secure Msg Kendal M HEALTH 350.1.13.10 ity of [place] 4.2.7.2.686 [place] as TOÑO?BLEA 440.0632772 Vt dical IVÁNEY 044 [facility] OFFICE [facility] 2021-09-15 2021-09-15 Patient Robb [facility] 1.2.840.114 [id number] Univers 00:00:00 00:00:00 Secure Msg Kendal M HEALTH 350.1.13.10 ity [facility] 4.2.7.2.686 [place] as TOÑO?BLEA [phone] Vt whit [address] MEDICAL OFFICE [facility] 2021-09-14 2021-09-14 Patient Juan [facility] 1.2.840.114 [id number] Univers 00:00:00 00:00:00 Secure Msg Vijay HEALTH 350.1.13.10 ity [facility] 4.2.7.2.686 [place] as TOÑO?BLEA [id number] [address] OFFICE [facility] 2021-09-12 2021-09-12 Outpatient Farzana MIXON [facility] [id number] Univers 10:30:00 10:30:00 CELINA lechuga [facility] 2021-09-12 2021-09-12 Outpatient Farzana MIXON [facility] [id number] Univers 10:30:00 10:30:00 CELINA lechuga [facility] 2021-09-12 2021-09-[address] [facility] 1.2.840.114 [id number] Univers 00:00:00 00:00:00 Secure Msg Daniel CRAIG 350.1.13.10 ity of [place] 4.2.7.2.686 [place] [facility] [id number] [facility] [place] [address] [facility] 2021-09-12 2021-09-12 Orders Doctor JORDAN 1.2.840.114 [id number] Univers 00:00:00 00:00:00 Only Unassigned, YAZMIN 350.1.13.10 ity of [place] [facility] 4.2.7.2.686 [place] as [phone] [facility] [address] 2021-09-12 2021-09-12 Patient Juan [facility] 1.2.840.114 [id number] Univers 00:00:00 00:00:00 Secure Msg Vijay HEALTH 350.1.13.10 ity [facility] 4.2.7.2.686 [place] as TOÑO?BLEA [id number] Vt whit [address] MEDICAL OFFICE [facility] 2021-09-05 2021-09-05 Patient Juan [facility] 1.2.840.114 [id number] Univers 00:00:00 00:00:00 Secure Msg Vijay HEALTH 350.1.13.10 ity of [place] 4.2.7.2.686 [place] as TOÑO?BLEA [id number] Vt whit [place] [address] MEDICAL OFFICE [facility] 2021-09-04 2021-09-04 Patient Juan [facility] 1.2.840.114 [id number] Univers 00:00:00 00:00:00 Secure Msg Vijay HEALTH 350.1.13.10 ity of [place] 4.2.7.2.686 [place] as TOÑO?BLEA [id number] Vt whit [place] 044 [facility] OFFICE [facility] 2021-08-25 2021-08-25 Telephone Aditi [facility] 1.2.840.114 [id number] Univers 00:00:00 00:00:00 Dania L HEALTH 350.1.13.10 it y of [place] 4.2.7.2.686 [place] as TOÑO?BLEA 168.3527473 Vt whit [place] 198 [facility] OFFICE [facility] 2021-08-25 2021-08-25 Patient Juan [facility] 1.2.840.114 [id number] Univers 00:00:00 00:00:00 Secure Msg Vijay HEALTH 350.1.13.10 ity of [place] 4.2.7.2.686 [place] as TOÑO?BLEA 329.8642874 Vt whit [place] [address] MEDICAL OFFICE [facility] 2021-08-24 2021-08-24 Telephone Juan [facility] 1.2.473.780 [id number] Univers 00:00:00 00:00:00 Vijay HEALTH 350.1.13.10 it y of [place] 4.2.7.2.686 [place] as TOÑO?BLEA 295.8568582 Vt whit [place] [address] MEDICAL OFFICE [facility] 2021-08-24 2021-08-24 Patient Juan [facility] 1.2.840.114 [id number] Univers 00:00:00 00:00:00 Secure Msg Vijay HEALTH 350.1.13.10 ity of [place] 4.2.7.2.686 [place] as TOÑO?BLEA [id number] Me whit [place] [address] [place] [address] MEDICAL OFFICE [facility] 2021-08-23 2021-08-[address] [facility] 1.2.840.114 [id number] Univers 00:00:00 00:00:00 Secure Msg Ivjay HEALTH 350.1.13.10 ity of [place] 4.2.7.2.686 [place] as TOÑO?BLEA [phone] Me whit [place] [address] [place] [address] MEDICAL OFFICE [facility] 2021-08-23 2021-08-23 Telephone [facility] 1.2.849.832 [id number] Univers 00:00:00 00:00:00 Vijay HEALTH 350.1.13.10 it y of [place] 4.2.7.2.686 [place] as TOÑO?BLEA [phone] Me whit [place] [address] [place] [address] OFFICE [facility] 2021-08-22 2021-08-22 [facility]phone [facility] [id number] Univers 00:00:00 00:00:00 Vijay HEALTH 350.1.13.10 it y of [place] 4.2.7.2.686 Martin as TOÑO?BLEA [phone] Vt whit [place] [address] [place] [address] OFFICE [facility] 2021-08-22 2021-08-22 Patient Jaja [facility] [id number] Univers 00:00:00 00:00:00 Secure Ms Hallie HEALTH 350.1.13.10 ity of [place] 4.2.7.2.686 Martin as TOÑO?BLEA [phone] Vt whit [place] [address] [place] [address] OFFICE [facility] 2021-08-18 2021-08-18 [facility]phone [facility] [id number] Univers 00:00:00 00:00:00 Vijay HEALTH 350.1.13.10 it y of [place] 4.2.7.2.686 Martin as TOÑO?BLEA [phone] Vt whit [place] [address] [place] [address] OFFICE [facility] 2021-08-17 2021-08-17 Jeramy MIXON [facility] [id number] Univers 09:00:00 09:00:00 CELINA lechuga [facility] 2021-08-17 2021-08-17 Outpatient Farzana MIXON [facility] [id number] Univers 09:00:00 09:00:00 CELINA lechuga [facility] 2021-08-16 2021-08-16 Patient Juan [facility] [id number] [id number] Univers 00:00:00 00:00:00 Secure Ms Vijay Cuedd 350.1.13.10 ity of [place] 4.2.7.2.686 Martin as TOÑO?BLEA [phone] Vt alessandraaliyah MIKI [address] [place] [address] OFFICE [facility] 2021-08-15 2021-08-[address] [facility] [id number] [id number] Univers 15:30:00 16:16:42 Visit Adán Jones [facility] 350.1.13.10 it y of [place] 4.2.7.2.686 Martin as TOÑO?BLEA [phone] Vt whit [place] [address] [facility] OFFICE [facility] [place] 2021-08-15 2021-08-15 [facility] [id number] Univers 15:30:00 16:16:42 [facility] [place] [facility]15 2021-08-15 Outpatient [facility] [id number] Univers 15:30:00 15:30:00 ADÁN ity [facility] 2021-08-15 2021-08-15 Outpatient Farzana KIM [facility] [id number] Univers 15:30:00 15:30:00 [facility] [place] 2021-08-15 2021-08-15 Outpatient [facility]ana [facility] [id number] Univers 15:30:00 15:30:00 [facility] 2021-08-15 2021-08-15 Emergency X DANITA [facility] ERT [id number] Univers 09:27:00 12:26:00 MAURA lechuga [facility] 2021-08-15 2021-08-15 Emergency Danita [facility] 1.2.782.476 [id number] Univers 09:27:00 12:26:00 [place] 350.1.13.10 ity of [place] 4.2.7.2.686 [place] [facility] [id number] [address] 2021-08-15 2021-08-15 Emergency X DANITA [facility] ERT [id number] Univers 09:27:00 12:26:00 MAURA lechuga [facility] 2021-08-14 2021-08-14 Outpatient R JUAN [facility] [id number] Univers 13:25:00 23:59:00 VIJAY lechuga [facility] 2021-08-14 2021-08-14 Outpatient R VÍCTORKassandra [facility] [id number] Univers 13:25:00 23:59:00 VIJAY lechuga [facility] 2021-08-14 2021-08-14 Outpatient R JUAN [facility] [id number] Univers 13:25:00 13:25:00 VIJAY lechuga [facility] 2021-08-14 2021-08-14 Outpatient R JUAN [facility] [id number] Univers 12:19:07 13:24:00 VIJAY lechuga [facility] 2021-08-14 2021-08-14 Outpatient R JUAN [facility] [id number] Univers 12:19:07 13:24:00 VIJAY lechuga [facility] 2021-08-14 2021-08-14 Emotional Support Teacher Lab, Ang - Db [facility] 1.2.840.1 14 [id number] Univers 12:30:00 13:01:24 Visit VíctorVijay cannon [facility] 350.1.13.10 ity [facility] 4.2.7.2.686 [place] as TOÑO?BLEA [id number] [address] MEDICAL OFFICE [facility] [place] 2021-08-14 2021-08-14 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 [facility] 1.2.840.114 [id number] Univers 11:30:00 12:31:12 Visit Vijay HEALTH 350.1.13.10 it y [facility] 4.2.7.2.686 [place] TOÑO?BLEA [id number] Vt whit MINOR 044 [facility] OFFICE [facility] [place] 2021-08-14 2021-08-14 [facility] [id number] Univers 11:30:00 12:31:12 VIJAY itchino [facility] 2021-08-14 2021-08-14 Patient [facility] 1.2.840.114 [id number] Univers 00:00:00 00:00:00 Secure Msg Vijay HEALTH 350.1.13.10 ity of [place] 4.2.7.2.686 [place] as TOÑO?BLEA [id number] [address] OFFICE [facility] [place] 2021-08-09 2021-08-09 Outpatient [facility] [id number] Univers 14:45:00 14:45:00 ADÁN ity [facility] 2021-08-09 2021-08-09 Telephone [facility] 1.2.793.077 [id number] Univers 00:00:00 00:00:00 Vijay HEALTH 350.1.13.10 it y of [place] 4.2.7.2.686 [place] as TOÑO?BLEA [id number] [address] 2021-08-08 2021-08-08 Out[facility] [id number] Univers 11:30:00 23:59:00 VIJAY itchino [facility] 2021-08-08 2021-08-08 [facility] 1.2.840.114 [id number] Univers 11:30:00 23:59:00 Encounter Vijay HEALTH 350.1.13.10 ity of [place] 4.2.7.2.686 [place] as TOÑO?BLEA [id number] Vt whit MINOR 808 [facility] OFFICE [facility] [place] 2021-08-08 2021-08-08 Out[facility] [id number] Univers 11:15:00 11:15:00 VIJAY lechuga [facility] 2021-08-08 2021-08-08 Outpatient R VÍCTORKassandra [facility] [id number] Univers 11:00:00 11:00:00 VIJAY lechuga [facility] 2021-08-08 2021-08-08 Patient Doctor JORDAN 1.2.840.114 [id number] Univers 00:00:00 00:00:00 Secure Msg Unassigned, YAZMIN 350.1.13.10 ity of [facility] 4.2.7.2.686 [place] as [id number] [address] 2021-08-07 2021-08-07 Office Juan [facility] 1.2.840.114 [id number] Univers 09:30:00 10:23:21 Visit Vijay PETTY 350.1.13.10 it y [facility] 4.2.7.2.686 [place] TOÑO?BLEA [id number] Vt dicaliyah MINOR[address] MEDICAL OFFICE [facility] [place] 2021-08-07 2021-08-07 Outpatient R JUAN [facility] [id number] Univers 09:30:00 10:23:21 VIJAY lechuga [facility] 2021-08-07 2021-08-07 Outpatient R JUAN [facility] [id number] Univers 09:30:00 09:30:00 VIJAY lechuga [facility] 2021-08-07 2021-08-07 Patient Juan [facility] 1.2.840.114 [id number] Univers 00:00:00 00:00:00 Secure Msg Vijay HEALTH 350.1.13.10 ity [facility] 4.2.7.2.686 [place] TOÑO?BLEA [id number] Vt dicailyah MINOR[address] MEDICAL OFFICE BUILDING 2021-08-07 2021-08-07 Patient Juan [facility] 1.2.840.114 [id number] Univers 00:00:00 00:00:00 Secure Msg Vijay HEALTH 350.1.13.10 ity of [place] 4.2.7.2.686 [place] as TOÑO?BLEA [id number] Vt dical IVÁN[address] MEDICAL OFFICE BUILDING 2021-08-07 2021-08-07 Patient Apurva [facility] 1.2.840.114 [id number] Univers 00:00:00 00:00:00 Secure Msg Celina A FLACO 350.1.13.10 ity of [facility] 4.2.7.2.686 [place] [id number] [address] 2021-08-04 2021-08-04 Outpatient R SHADIA [facility] [id number] Univers 10:00:00 10:00:00 PETRA ity of [facility] 2021-08-04 2021-08-[address] [facility] 1.2.840.114 [id number] Univers 00:00:00 00:00:00 Secure Msg Vijay HEALTH 350.1.13.10 ity of [place] 4.2.7.2.686 [place] as TOÑO?BLEA [id number] [address] MEDICAL OFFICE BUILDING 2021-08-03 2021-08-03 Office SOURAV Diaz 1.2.840.114 [id number] Univers 11:00:00 12:48:43 Visit Jayy Y 350.1.13.10 it y of [facility] 4.2.7.2.686 Martin as BANK [id number] [address] 2021-08-03 2021-08-03 Outpatient R EMILY [facility] [id number] Univers 11:00:00 12:48:43 JAYYBELKYS maradiagay [facility] 2021-08-03 2021-08-03 Outpatient [facility] [id number] Univers 11:00:00 11:00:00 JAYY hireny [facility] 2021-08-03 2021-08-[address] [facility] 1.2.840.114 [id number] Univers 00:00:00 00:00:00 Secure Msg Celina A FLACO 350.1.13.10 ity of [facility] 4.2.7.2.686 [place] [id number] [address] 2021-08-02 2021-08-02 Telephone Juan [facility] 1.2.908.650 [id number] Univers 00:00:00 00:00:00 Vijay HEALTH 350.1.13.10 it y of [facility] 4.2.7.2.686 [place] TOÑO?BLEA [id number] [facility] IVÁN[address] 2021-07-21 2021-07-21 Outpatient R YOSELINDARRION [facility] [id number] Univers 08:00:00 08:52:53 DARRION WYATT chino [facility] 2021-07-17 2021-07-17 Outpatient R JUAN [facility] [id number] Univers 11:30:00 11:30:00 VIJAY [facility] 2021-06-19 2021-06-[address] [facility] 1.2.600.511 [id number] Univers 00:00:00 00:00:00 Vijay HEALTH 350.1.13.10 it y of [place] 4.2.7.2.686 Martni as TOÑO?BLEA [id number] [address] 2021-06-09 2021-06-[address] [facility] 1.2.803.570 [id number] Univers 00:00:00 00:00:00 Reji [place] 350.1.13.10 ity of [place].2.7.2.[place] [id number] [place] [id number] [facility] 2021-06-06 2021-06-06 Outpatient Farzana CARNES [facility] [id number] Univers 11:15:00 11:15:00 TETO lechuga [facility] 2021-06-06 2021-06-06 Outpatient R DEYVI [facility] [id number] Univers 11:15:00 11:15:00 TETO lechuga [facility] 2021-06-02 2021-06-02 Outpatient R CRISTINA [facility] [id number] Univers 15:45:00 15:45:00 WONDIFUL ity o f [facility] 2021-05-31 2021-05-31 [facility] [id number] Univers 10:00:00 10:46:31 VIJAY lechuga of [facility] 2021-05-31 2021-05-31 Office Víctorkassandra [facility] 1.2.840.114 [id number] Univers 10:00:00 10:46:31 Visit Vijay HEALTH 350.1.13.10 it y of [facility] 4.2.7.2.686 [place] TOÑO?BLEA [id number] [address] OFFICE [facility] [place] 2021-05-31 2021-05-31 Outpatient R JUAN [facility] [id number] Univers 10:00:00 10:46:31 VIJAY lechuga [facility] 2021-05-31 2021-05-31 Orders Doctor JORDAN 1.2.840.114 [id number] Univers 00:00:00 00:00:00 Only Unassigned, YAZMIN 350.1.13.10 ity of [place] [facility] 4.2.7.2.686 [place] as [id number] [address] 2021-05-26 2021-05-[address] [facility] 1.2.143.158 [id number] Univers 00:00:00 00:00:00 Skylar A HEALTH 350.1.13.10 i ty of [place] 4.2.7.2.686 [place] as TOÑO?BLEA [id number] [address] 2021-05-26 2021-05-26 Patient Prasanna Vargas [facility] 1.2.301.128 [id number] Univers 00:00:00 00:00:00 Secure Msg Cam [place] 350.1.13.10 ity of [place].2.[place] [id number] [address] 2021-05-25 2021-05-[address] [facility] 1.2.840.114 [id number] Univers 14:00:00 14:30:00 ne Visit Skylar A HEALTH 350.1.13.10 ity of [place] 4.2.7.2.686 [place] TOÑO?BLEA [id number] [address] OFFICE [facility] 2021-05-25 2021-05-25 Out[facility] [id number] Univers 14:00:00 14:00:00 SKYLAR lechuga [facility] 2021-05-25 2021-05-25 Outpatient R YANELI [facility] [id number] Univers 14:00:00 14:00:00 SKYLAR lechuga [facility] 2021-05-24 2021-05-24 Telephone Ponce [facility] 1.2.961.037 [id number] Univers 00:00:00 00:00:00 Rad [place] 350.1.13.10 ity of [place].2.[place].2.[place] [id number] [address] 2021-05-23 2021-05-23 Outpatient R [facility] [id number] Univers 10:00:00 10:00:00 ity [facility] 2021-05-23 2021-05-23 Outpatient R [facility] [id number] Univers 10:00:00 10:00:00 ity [facility] 2021-05-16 2021-05-16 Outpatient R MANUELCHRISTOPHERZAMZAM, [facility] [id number] Univers 09:00:00 09:00:00 TETO [facility] 2021-05-12 2021-05-12 Orders Doctor JORDAN 1.2.840.114 [id number] Univers 00:00:00 00:00:00 Only Unassigned, YAZMIN 350.1.13.10 ity of [place] [facility] 4.2.7.2.686 [place] as [id number] [address] 2021-05-10 2021-05-10 Outpatient R CRISTINA [facility] [id number] Univers 13:00:00 13:00:00 WONDIFUL ity o f [facility] 2021-05-10 2021-05-10 [facility] [id number] Univers 13:00:00 13:00:00 WONDIFUL ity o f [facility] 2021-05-09 2021-05-09 Telephone Prasanna Vargas [facility] 1.2.840.114 [id number] Univers 00:00:00 00:00:00 Jm [place] 350.1.13.10 i ty [facility] 4.2.7.2.[place] [id number] Vt dical NAL 134 [facility] 2021-05-09 2021-05-[address] [facility] 1.2.840.114 [id number] Univers 00:00:00 00:00:00 Secure Msg Rad [place] 350.1.13.10 ity [place] 4.2.7.2.686 [place] [id number] Vt dical NAL 059 [facility] 2021-05-08 2021-05-08 Outpatient R YASMEEN [facility] [id number] Univers 16:00:00 16:00:00 JE chino [facility] 2021-05-08 2021-05-08 Outpatient Farzana ARANA [facility] [id number] Univers 16:00:00 16:00:00 [facility] 2021-[facility]-08 2021-05-08 Patient [facility] 1.2.840.114 [id number] Univers 00:00:00 00:00:00 Secure Msg Rad [place] 350.1.13.10 ity of [place] 4.2.7.2.686 [place] [id number] Vt dicnv NAL 059 [facility] 2021-05-08 2021-05-08 [facility] 1.2.840.114 [id number] Univers 00:00:00 00:00:00 Secure Msg Rad [place] 350.1.13.10 ity of [place] 4.2.7.2.686 [place] [id number] Vt dical NAL 059 [facility] 2021-05-03 2021-05-03 Outpatient R ARJUN [facility] [id number] Univers 11:15:36 23:59:00 REJI fitzpatrick f [facility] 2021-05-03 2021-05-03 [facility] 1.2.840.114 [id number] Univers 11:15:36 23:59:00 Encounter Reji METCALFDAYAMI 350.1.13.10 ity of [place] 4.2.7.2.686 [place] [id number] [facility] 846 [facility] 2021-05-03 2021-05-[address] [facility] 1.2.840.114 [id number] Univers 00:00:00 00:00:00 Wondiful A HEALTH 350.1.13.10 ity of [place] 4.2.7.2.686 [place] as TOÑO?BLEA [id number] [address] OFFICE [facility] 2021-05-02 2021-05-02 Telephone [facility] 1.2.365.812 [id number] Univers 00:00:00 00:00:00 Sendil [facility] [place] 350.1.13.10 ity of [place] 4.2.7.2.686 [place] [id number] [facility] 059 [facility] 2021-05-02 2021-05-[address] [facility] 1.2.840.114 [id number] Univers 00:00:00 00:00:00 Secure Msg Wondiful A HEALTH 350.1.13.10 ity of [place] 4.2.7.2.686 [place] TOÑO?BLEA [id number] [address] 2021-05-02 2021-05-02 Telephone [facility] 1.2.840.114 [id number] Univers 00:00:00 00:00:00 Wondiful A HEALTH 350.1.13.10 ity of [place] 4.2.7.2.686 [place] as TOÑO?BLEA [id number] [address] OFFICE [facility] 2021-05-02 2021-05-02 [facility] 1.2.840.114 [id number] Univers 00:00:00 00:00:00 Secure Msg Sendil [facility] [place] 350.1.13.10 ity of [place] 4.2.7.2.686 [place] [id number] [facility] 059 [facility] 2021-04-27 2021-04-[address] [facility] ERT [id number] Univers 14:24:00 15:49:00 MAGGIE itchino [facility] 2021-04-27 2021-04-[address] [facility] 1.2.840.114 [id number] Univers 14:24:00 15:49:00 Maggie [place] 350.1.13.10 ity of [place] 4.2.7.2.686 [place] SUPAI [id number] [facility] 084 [place] 2021-04-27 2021-04-27 Laboratory Only, Ang Db Test [facility] 1.2.8 40.114 [id number] Univers 11:15:00 11:30:00 Only Unknown, Attending HEALTH 350.1.13.10 ity of [facility] 4.2.7.2.686 [place] TOÑO?BLEA [id number] Vt whit MINOR [address] [place] MEDICAL OFFICE [facility] 2021-04-27 2021-04-27 Outpatient R SIL [facility] [id number] Univers 11:15:00 11:15:00 THONY [facility] 2021-04-27 2021-04-27 Orders Doctor JORDAN 1.2.840.114 [id number] Univers 00:00:00 00:00:00 Only Unassigned, YAZMIN 350.1.13.10 ity of [place] [facility] 4.2.7.2.686 [place] as [id number] [facility] 00[address] [place] 2021-04-20 2021-04-20 Outpatient R JUSTINE [facility] [id number] Univers 15:00:00 15:00:00 SCOTT ity [facility] 2021-04-13 2021-04-13 Patient Cristina [facility] 1.2.840.114 [id number] Univers 00:00:00 00:00:00 Secure Msg Wondiful A HEALTH 350.1.13.10 ity of [place] 4.2.7.2.686 [place] as TOÑO?BLEA [id number] Vt whit MINOR 044 [place] MEDICAL OFFICE BUILDING 2021-04-12 2021-04-12 Telephone Cristina [facility] 1.2.840.114 [id number] Univers 00:00:00 00:00:00 Wondiful A HEALTH 350.1.13.10 ity of [place] 4.2.7.2.686 [place] as TOÑO?BLEA [id number] [address] MEDICAL OFFICE [facility] 2021-03-27 2021-03-27 Telephone Prasanna Vargas [facility] 1.2.840.114 [id number] Univers 00:00:00 00:00:00 Cam [place] 350.1.13.10 i ty [facility] 4.2.7.2.[place] [id number] [address] 2021-03-23 2021-03-23 Outpatient R KAVYA [facility] [id number] Univers 13:30:00 13:30:00 CHILVANA ity o f [facility] 2021-03-23 2021-03-23 Outpatient R KAVYA [facility] [id number] Univers 13:30:00 13:30:00 CHILVANA ity o f [facility] 2021-03-22 2021-03-22 Outpatient R NEHEMIAH MEEKSTXEz [facility] [id number] Univers 09:20:00 09:20:00 ATANASJABIER STRAHIL ity [facility] 2021-03-22 2021-03-22 Outpatient R NEHEMIAH MEEKSTXEz [facility] [id number] Univers 09:20:00 09:20:00 ADITYA MEEKS itchino [facility] 2021-03-20 2021-03-20 [facility] [id number] Univers 00:00:00 00:00:00 WONDIFUL ity o f [facility] 2021-03-18 2021-03-[address] [facility] 1.2.840.114 [id number] Univers 00:00:00 00:00:00 Management Wondiful A HEALTH 350.1.13.10 ity of [place] 4.2.7.2.686 [place] as TOÑO?BLEA [id number] [address] [facility] 2021-03-16 2021-03-16 Emotional Support Teacher Lab, Ang - Db [facility] 1.2.840.1 14 [id number] Univers 11:16:07 11:31:07 Visit Claudette Evans A HEALTH 350.1.13.1 0 ity of [place] 4.2.7.2.686 [place] TOÑO?BLEA [id number] [facility] 353 [facility] OFFICE [facility] 2021-03-16 2021-03-16 Outpatient R CRISTINA [facility] [id number] Univers 11:30:00 11:30:00 WONDIFUL ity o f [facility] 2021-03-16 2021-03-16 Outpatient R CRISTINA [facility] [id number] Univers 11:00:00 11:14:45 WONDIFUL ity o f [facility] 2021-03-16 2021-03-[address] [facility] 1.2.840.114 [id number] Univers 10:00:58 11:14:45 Visit Wonlgful A HEALTH 350.1.13.10 ity of [place] 4.2.7.2.686 [place] as TOÑO?BLEA [id number] [address] OFFICE [facility] 2021-03-16 2021-03-16 Patient Cristina [facility] 1.2.840.114 [id number] Univers 00:00:00 00:00:00 Secure Msg Wondiful A HEALTH 350.1.13.10 ity of [place] 4.2.7.2.686 [place] as TOÑO?BLEA [id number] [address] OFFICE [facility] 2021-03-02 2021-03-02 Outpatient R CRISTINA [facility] [id number] Univers 16:15:00 16:15:00 WONDIFUL ity o [facility] 2021-02-28 2021-02-28 Outpatient R HARDEEP [facility] [id number] Univers 18:30:00 18:30:00 ILEANA itchino of [facility] 2021-02-28 2021-02-28 Telephone Cristina [facility] 1.2.840.114 [id number] Univers 00:00:00 00:00:00 Wondiful [facility] [id number] ity of [place] [id number] [place] as [place]ño?Blea [phone] [place] [facility] [facility] 2021-02-27 2021-02-27 Outpatient R STEPHANY [facility] [id number] Univers 09:00:00 09:00:00 AMELIA lechuga of [facility] 2021-02-23 2021-02-23 Telephone [facility] [id number] Univers 00:00:00 00:00:00 Wondiful [facility] [id number] ity of [place] [id number] [place] as Toño?Blea [phone] [facility] 044 [facility] Office [facility] 2021-02-10 2021-02-10 Emergency Kaycee Méndez [facility] [id number] Univers 18:12:00 23:39:00 Sharlene [place] [id number] i [place] 4.2.7.2.686 [place] [phone] [facility] 084 [place] 2021-02-09 2021-02-09 Hospital [facility] [id number] Univers 13:40:00 23:59:00 Encounter Wondiful [facility] [id number] ity of [place] [id number] [place] as Toño?Blea [phone] [place] 809 [place] [facility] 2021-02-09 2021-02-09 Emotional Support Teacher Lab, Ang - Db [facility] 1.2.840.1 [id number] Univers 13:49:05 14:04:05 Visit Claudette Evans [facility] 350.1.13.1 0 ity of [place] [id number] [place] as [place]ño?Blea [phone] [place] 353 [facility] Office [facility] 2021-02-09 2021-02-09 Office [facility] 1.2.840.114 [id number] Univers 12:23:13 13:47:12 Visit Wondiful [facility] [id number] ity of [place] [id number] [place] as [place]ño?Blea [phone] [address] Medical Office [facility] 2021-02-09 2021-02-09 Outpatient R CRISTINA [facility] [id number] Univers 13:00:00 13:00:00 WONDIFUL ity o f [facility] 2021-02-08 2021-02-08 Outpatient R NEHEMIAH MEEKSTXEz [facility] [id number] Univers 10:20:00 10:20:00 [facility] 2021-02-02 2021-02-02 [facility] [id number] Univers 10:30:00 10:30:00 SKYLAR [facility] 2021-02-02 2021-02-[address] [facility] 1.2.840.114 [id number] Univers 00:00:00 00:00:00 Wondiful [facility] [id number] ity of [place] [id number] Martin as Toño?Blea [phone] [address] Medical Office [facility] 2021-02-01 2021-02-01 [facility] [id number] Univers 08:30:00 08:30:00 [facility] 2021-01-31 2021-01-31 [facility] 1.2.840.114 [id number] Univers 18:44:04 19:41:26 Care [facility] [id number] i ty of [place] [id number] Martin as Toño?Blea [phone] [facility] [address] Medical Office [facility] 2021-01-31 2021-01-31 Outpatient [facility] [id number] Univers 19:00:00 19:00:00 FLACO ity o f [facility] 2021-01-31 2021-01-[address] [facility] 1.2.840.114 [id number] Univers 00:00:00 00:00:00 Wondiful [facility] [id number] ity of [place] [id number] [place] as Toño?Blea [phone] [facility] miki [address] [place] Medical Office [facility] 2021-01-30 2021-01-[address] [facility] 1.2.141.814 [id number] Univers 00:00:00 00:00:00 Sendil Kaycee.HPilar [place] 350.1.13.10 [place] [phone] [facility] 059 [facility] 2021-01-26 2021-01-26 [facility] [id number] Univers 14:00:00 14:00:00 [facility] 2021-01-25 2021-01-25 Outpatient R [facility] [id number] Univers 15:00:00 15:00:00 ity [facility] 2021-01-20 2021-01-[address] [facility] 1.2.840.114 [id number] Univers 16:51:22 17:12:41 ne Visit Skylar [facility] 350.1.13.10 ity of [place] 4.2.7.2.686 [place] as Toño?Blea [id number] [address] Medical Office [facility] 2021-01-20 2021-01-20 Out[facility] [id number] Univers 16:30:00 16:30:00 SKYLAR ity [facility] 2021-01-19 2021-01-19 [facility] [id number] Univers 10:15:00 10:15:00 KAYLEY ity [facility] 2021-01-14 2021-01-14 JORDAN Guzman 1.2.840.114 [id number] Univers 00:00:00 00:00:00 Management Kassandra ARCE 350.1.13.10 ity of [facility] 4.2.7.2.686 Martin as [phone] [address] 2021-01-12 2021-01-12 Emergency [facility] 1.2.547.291 [id number] Univers 16:10:00 19:45:00 Karin Lawson 350.1.13.10 i ty of [place] 4.2.7.2.686 [place] [phone] [facility] [address] [place] 2021-01-12 2021-01-12 Outpatient Farzana MEDRANO [facility] [id number] Univers 15:20:00 15:20:00 [facility] 2021-01-12 2021-01-12 Urgent Thony Johnson [facility] 1.2.840.114 [id number] Univers 14:46:57 15:06:57 [facility] [id number] ity of [place] 4.2.7.2.686 [place] Toño?Blea [phone] [address] Medical Office Building 2020-12-26 2020-12-26 [facility] [id number] Univers 15:30:00 16:13:32 SENDIL [facility] 2020-12-26 2020-12-26 [facility] 1.2.840.114 [id number] Univers 15:30:00 16:13:32 Visit Sendzohra LAWSON 350.1.13.10 ity of [place] 4.2.7.2.[place] [phone] [address] 2020-12-26 2020-12-[address] [facility] 1.2.840.114 [id number] Univers 15:00:32 16:13:32 Visit Sendzohra Lawson 350.1.13.10 [place] of [place] 4.2.[place].2.[place] [phone] [address] 2020-12-26 2020-12-26 Outpatient R PONCE [facility] [id number] Univers 15:30:00 15:30:00 [facility] 2020-11-22 2020-11-22 [facility] [id number] Univers 11:00:00 11:00:00 CELINA maradiagachino [facility] 2020-11-10 2020-11-10 Urgent Alissa Collins [facility] 1.2.840.114 [id number] 18:42:46 19:53:43 [facility] 350.1.13.10 [place] 4.2.7.2.686 Professio [phone] nal [address] Office [address] One 2020-11-10 2020-11-10 Outpatient R [facility] [id number] Univers 19:00:00 19:00:00 itchino [facility] 2020-10-31 2020-10-31 Emergency Kaycee Méndez [facility] 1.2.840.114 [id number] 18:52:00 22:15:00 Sharlene Lawson 350.1.13.10 [place] 4.2.7.2.686 [place] [id number] [id number] 2020-10-31 2020-10-31 Outpatient R NATASHA [facility] [id number] Univers 19:00:00 19:00:00 CARI lechuga o f [facility] 2020-10-31 2020-10-31 Orders Doctor JORDAN 1.2.840.114 [id number] 00:00:00 00:00:00 Only Unassigned, YAZMIN 350.1.13.10 [place] [facility] 4.2.7.2.686 [id number] [id number] 2020-10-20 2020-10-20 Emergency Kaycee Méndez [facility] 1.2.840.114 [id number] 14:02:00 17:13:00 Sharlene Lawson 350.1.13.10 [place] 4.2.7.2.686 [place] [phone] 084 2020-10-14 2020-10-14 [facility] Prasanna Vargas [facility] 1.2.840.114 [id number] 10:00:00 23:59:00 Remington Lawson 350.1.13.10 [place] 4.2.7.2.686 [place] [id number] [id number] 2020-10-14 2020-10-14 Outpatient R APURVA, [facility] [id number] Univers 13:30:00 13:30:00 CELINA [facility] 2020-10-09 2020-10-[address] [facility] 1.2.792.609 [id number] 12:00:00 15:57:00 Anna Jamarcus Lulu 350.1.13.10 [place] 4.2.7.2.686 [place] [phone] 084 2020-10-06 2020-10-06 [facility] 1.2.563.450 [id number] 08:53:00 09:46:44 Visit Jm Lawson 350.1.13.10 [place] 4.2.7.2.686 Professio [id number] nal [address] Building 2020-10-06 2020-10-06 Outpatient PRASANNA LOOMIS [facility] [id number] Univers 09:30:00 09:30:00 [facility] 2020-10-04 2020-10-04 Outpatient Farzana MIXON [facility] [id number] Univers 14:00:00 14:00:00 [facility] 2020-09-30 2020-09-30 Outpatient Farzana MIXON [facility] [id number] Univers 10:30:00 10:30:00 [facility] [place] [facility] 2020-09-29 2020-09-29 Outpatient Farzana SHAY [facility] [id number] Univers 13:45:00 13:45:00 PREET [facility] 2020-09-06 2020-09-06 Outpatient Farzana VARGAS PRASANNA [facility] [id number] Univers 15:30:00 15:30:00 [facility] 2020-09-02 2020-09-02 Outpatient DARRION QUIROZ [facility] [id number] Univers 15:40:00 15:40:00 DARRION WYATT [facility] 2020-08-31 2020-08-31 Outpatient Farzana SERRA [facility] [id number] Univers 10:30:00 10:30:00 SENDIL [facility] 2020-08-18 2020-08-18 Outpatient R PRASANNA VARGAS [facility] [id number] Univers 09:30:00 09:30:00 ity [facility] 2020-08-11 2020-08-11 Outpatient R PRASANNA VARGAS [facility] [id number] Univers 13:30:00 13:30:00 ity [facility] 2020-08-04 2020-08-04 Outpatient R JUSTINE [facility] [id number] Univers 14:00:00 14:00:00 [facility] 2020-07-28 2020-07-28 Outpatient R PONCE [facility] [id number] Univers 10:30:00 10:30:00 [facility]IL [facility] 2020-06-30 2020-06-30 Outpatient R CRISTINA [facility] [id number] Univers 16:15:00 16:15:00 WONDIFUL ity o f [facility] 2020-06-17 2020-06-17 Outpatient R DARRION WYATT [facility] [id number] Univers 15:00:00 15:00:00 DARRION WYATT [facility] 2020-06-16 2020-06-16 Outpatient R PONCE [facility] [id number] Univers 15:30:00 15:30:00 [facility]IL [facility] 2020-06-09 2020-06-09 Outpatient NI YUNG [facility] [id number] Univers 12:30:00 12:30:00 [facility] 2020-06-08 2020-06-08 Outpatient R NI DISLA [facility] [id number] Univers 08:00:00 08:00:00 ity [facility] 2020-06-02 2020-06-02 Outpatient R PONCE [facility] [id number] Univers 09:00:00 09:00:00 [facility] 2020-05-28 2020-05-28 Outpatient R NATASHA [facility] [id number] Univers 10:00:00 10:00:00 CARI ity o f [facility] 2020-05-24 2020-05-24 Outpatient R NI DISLA [facility] [id number] Univers 10:00:00 10:00:00 [facility] 2020-05-19 2020-05-19 Outpatient R OSITO HITCHCOCK [facility] [id number] Univers 16:30:00 16:30:00 [facility] 2020-05-17 2020-05-17 Outpatient R DARRION WYATT [facility] [id number] Univers 13:00:00 13:00:00 DARRION WYATT [facility] 2020-05-16 2020-05-16 Outpatient R CRISTINA, [facility] [id number] Univers 16:00:00 16:00:00 WONDIFUL ity o f [facility] 2020-05-08 2020-05-08 Emergency X VIRGIE [facility] ERT [id number] Univers 10:24:00 13:03:00 OLAMIDE [facility] 2020-05-03 2020-05-03 Outpatient R CRISTINA [facility] [id number] Univers 15:00:00 15:00:00 WONDIFUL ity o f [facility] 2020-04-30 2020-05-01 Outpatient X KAVYA [facility] JOSÉ MANUEL [id number] Univers 11:14:00 15:50:00 RODRIGUEZ [facility] 2020-04-30 2020-04-30 Outpatient R JASPAL [facility] [id number] Univers 10:20:00 10:20:00 ROSALES [facility] 2020-04-30 2020-04-30 Outpatient R JASPAL [facility] [id number] Univers 10:15:00 10:15:00 ROSALES [facility] 2020-04-28 2020-04-28 Outpatient R CORETTAOSITO [facility] [id number] Univers 14:00:00 14:00:00 ity [facility] 2020-04-25 2020-04-25 Outpatient R CRISTINA [facility] [id number] Univers 16:15:00 16:15:00 WONDIFUL ity o f [facility] 2020-04-18 2020-04-18 Outpatient R CORETTAJACOBR [facility] [id number] Univers 10:00:00 10:00:00 [facility] 2020-04-15 2020-04-15 Outpatient R PONCE [facility] [id number] Univers 10:30:00 10:30:00 SENDIL [facility] 2020-04-12 2020-04-13 Outpatient X MARICRUZ [facility] [id number] Univers 13:38:00 16:25:00 [facility] 2020-03-17 2020-03-17 Outpatient R DEYVI [facility] [id number] Univers 16:15:00 16:15:00 [facility] 2020-03-04 2020-03-04 Refill Coretta [facility] 1.2.840.114 [id number] 00:00:00 00:00:00 MULTISPEC 350.1.13.10 [place] 4.2.7.2.686 [place] [id number] [facility] 2020-02-25 2020-02-25 Outpatient R CORETTA OSITO [facility] [id number] Univers 16:00:00 16:00:00 [facility] 2020 Outpatient R DEYVI [facility] [id number] Univers 14:00:00 [facility]:00:[facility] 2020-02-08 2020-02-08 Outpatient R PRASANNA VARGAS [facility] [id number] Univers 10:30:00 10:30:00 [facility] 2020-02-04 2020-02-04 Outpatient R CORETTA OSITO [facility] [id number] Univers 13:30:00 13:30:00 [facility] 2020-01-23 2020-01-23 Outpatient R [facility] [id number] Univers 10:15:00 10:15:00 [facility] 2020-01-21 2020-01-21 Outpatient R CORETTA OSITO [facility] [id number] Univers 13:00:00 13:00:00 [facility] 2020-01-14 2020-01-14 Outpatient R CORETTA OSITO [facility] [id number] Univers 16:00:00 16:00:00 [facility] 2020-01-05 2020-01-05 Outpatient R PRASANNA VARGAS [facility] [id number] Univers 13:45:00 13:45:00 [facility] 2019-12-03 2019-12-03 Outpatient R AKINSIPE, [facility] [id number] Univers 10:30:00 10:30:00 CRICKET ity o f [facility] 2019-11-27 2019-11-27 Outpatient R VANAPHAN, [facility] [id number] Univers 11:00:00 11:00:00 [facility] 2019-11-25 2019-11-25 Outpatient R VANAPHAN, [facility] [id number] Univers 08:00:00 08:00:00 [facility] 2019-11-18 2019-11-18 Outpatient R VANAPHAN, [facility] [id number] Univers 10:00:00 10:00:00 [facility] 2019-09-02 2019-09-02 Outpatient R AKINSIPE, [facility] [id number] Univers 11:00:00 11:00:00 CRICKET ity o f [facility] 2019-08-14 2019-08-14 Outpatient R VANAPHAN, [facility] [id number] Univers 10:15:00 10:15:00 [facility] 2019-08-13 2019-08-13 Outpatient R AKINSIPE, [facility] [id number] Univers 11:00:00 11:00:00 CRICKET ity o f [facility] 2019-08-12 2019-08-12 Outpatient R [facility] [id number] Univers 09:00:00 09:00:00 [facility] 2019-07-20 2019-07-20 Outpatient P ALICIA PRASANNA [facility] CHRIS [id number] Univers 16:06:00 16:06:00 [facility] 2019-07-20 2019-07-20 Outpatient R AKINSIPE, [facility] [id number] Univers 08:15:00 08:15:00 CRICKET ity o f [facility] 2019-07-13 2019-07-13 Outpatient R AKINSIPE, [facility] [id number] Univers 08:00:00 08:00:00 CRICKET lechuga o susan [facility] 2019-07-12 2019-07-12 Outpatient PRASANNA HERRERA [facility] CHRIS [id number] Univers 13:39:00 13:39:00 [facility] 2019-07-06 2019-07-06 Outpatient R BRANDON [facility] [id number] Univers 13:00:00 13:00:00 CRICKET lechuga o susan [facility] 2019-06-13 2019-06-13 Emergency X MARGARITA [facility] ERT [id number] Univers 10:40:46 12:35:00 ASRAHI [facility] 2019-05-13 2019-05-14 Outpatient PRASANNA HERRERA [facility] CHRIS [id number] Univers 23:07:00 09:15:00 [facility] Results Test Description Test Time Test Comments Results Result Comments Source TEST, SERUM 2022-08-01 00:23:34 Test Item Value Reference Range Interpretation Comme nts PREG SERUM (test code = 6413444052) Negative WESLEY (test code = WESLEY) Less than 10 IU/L. ?If low titer or ectopic is suspected, resubmit specimen in 48-72 hours. [facility]. METABOLIC PANEL ([id number])2022-07-31 23:58:12 Test Item Value Reference Range Interpretation Comments NA (test code = 140 mmol/L 135-145 9198742761) K (test code = 3.6 mmol/L 3.5-5.0 7228464727) CL (test code = 106 mmol/L 98-108 2537296997) CO2 TOTAL (test code = 21 mmol/L 23-31 L 4885664187) AGAP (test code = 13 2-16 2228655264) BUN (test code = 8 mg/dL 7-23 5668231342) GLUCOSE (test code = 90 mg/dL 70-110 0427757876) CREATININE (test code = 0.90 mg/dL 0.50-1.04 7246086261) TOTAL BILI (test code = 0.5 mg/dL 0.1-1.7 3459587350) CALCIUM (test code = 9.0 mg/dL 8.6-10.6 6408574484) T PROTEIN (test code = 7.8 g/dL 6.3-8.2 3573015969) ALBUMIN (test code = 4.6 g/dL 3.5-5.0 0458487042) ALK PHOS (test code = 63 U/L 34-122 7120776507) ALTv (test code = 23 U/L 5-35 1742-6) AST(SGOT) (test code = 27 U/L 13-40 1738174641) eGFR (test code = 75.1 mL/min/1.73m2 4219519082) WESLEY (test code = WESLEY) Association of [...] tests). Lab Interpretation Abnormal (test code = 70603-6) [facility]57[facility]32 Test Item Value Reference Range Interpretation Comments LIPASE (test code = 1779775155) 55 U/L 0-220 Lab Interpretation (test code = Normal 09363-9) [facility] WITH [id number] 23:47:31 Test Item Value Reference Range Interpretation [...] RDW-SD (test code = 42.5 fL 39.0-49.9 33341-1) RDW-CV (test code = 13.0 % 12.0-15.5 788-0) PLT (test code = 339 See_Comment [Automated 777-3) message] The sy stem which generated this result transmitted reference range : 166 - 358 10*3/ ?L. The reference r david was not used to interpret this result as normal/abnormal . MPV (test code = 9.4 fL 9.5-12.9 L 74553-4) NRBC/100 WBC (test 0.0 See_Comment [Automat ed code = 2740497962) message] The system which generated this result transmitted reference range : 0.0 - 10.0 /100 WBCs. The refer ence range was not u sed to interpret th is result as normal/abnormal . NRBC x10^3 (test code See_Comment [Auto mated = 0544813279) message] The s ystem which generated this result transmitted reference range : 10*3/?L. The reference range was not used to interpret this result as normal/abnormal . GRAN MAT (NEUT) % 51.2 % (test code = 770-8) IMM GRAN % (test code 0.20 % = 4221944608) LYMPH % (test code = 36.5 % 736-9) MONO % (test code = 5.7 % 5905-5) EOS % (test code = 5.9 % 713-8) BASO % (test code = 0.5 % 706-2) GRAN MAT x10^3(ANC) 2.89 10*3/uL 1.88-7.09 (test code = 0962562467) IMM GRAN x10^3 (test 0.00-0.06 code = 3390353383) LYMPH x10^3 (test code 2.06 10*3/uL 1.32-3.29 = 731-0) MONO x10^3 (test code 0.32 10*3/uL 0.33-0.92 L = 742-7) EOS x10^3 (test code = 0.33 10*3/uL 0.03-0.39 711-2) BASO x10^3 (test code 0.03 10*3/uL 0.01-0.07 = 704-7) Lab Interpretation Abnormal (test code = 23881-5) [facility] [id number] 16:14:38 Test Item Value Reference Range Interpretation Comments POCT Molecular Strep (test code = Negative Negative 59786-8) Lab Interpretation (test code = Normal 92164-5) [facility] METABOLIC PANEL ([id number])2022-05-05 19:35:37 Test Item Value Reference Range Interpretation Comments NA (test code = 139 mmol/L 135-145 1905445526) K (test code = 4.4 mmol/L 3.5-5.0 5600027885) CL (test code = 104 mmol/L 98-108 5967696192) CO2 TOTAL (test code = 22 mmol/L 23-31 L 3339208764) AGAP (test code = 2-16 7861149919) BUN (test code = 11 mg/dL 7-23 1220955348) GLUCOSE (test code = 95 mg/dL 70-110 8977597393) CREATININE (test code = 0.71 mg/dL 0.50-1.04 6690553431) TOTAL BILI (test code = 0.4 mg/dL 0.1-1.6 0486389713) CALCIUM (test code = 9.1 mg/dL 8.6-10.6 1302328713) T PROTEIN (test code = 7.9 g/dL 6.3-8.2 5882786916) ALBUMIN (test code = 4.7 g/dL 3.5-5.0 1909448833) ALK PHOS (test code = 114 U/L 34-122 3187912927) ALTv (test code = 21 U/L 5-35 2-6) AST(SGOT) (test code = 21 U/L 13-40 2576972821) eGFR (test code = mL/min/1.73m2 7015145504) WESLEY (test code = WESLEY) Association of [...] tests). Lab Interpretation Abnormal (test code = 26185-6) [facility] WITH [id number] 19:25:37 Test Item Value Reference Range Interpretation [...] RDW-SD (test code = 41.7 fL 39.0-49.9 42501-4) RDW-CV (test code = 12.7 % 12.0-15.5 788-0) PLT (test code = See_Comment H [Automated 777-3) message] The sy stem which generated this result transmitted reference range : 166 - 358 10*3/ ?L. The reference r david was not used to interpret this result as normal/abnormal . MPV (test code = 8.8 fL 9.5-12.9 L 05490-5) NRBC/100 WBC (test See_Comment [Automat ed code = 2720339896) message] The system which generated this result transmitted reference range : 0.0 - 10.0 /100 WBCs. The refer ence range was not u sed to interpret th is result as normal/abnormal . NRBC x10^3 (test code See_Comment [Auto mated = 9242620456) message] The s ystem which generated this result transmitted reference range : 10*3/?L. The reference range was not used to interpret this result as normal/abnormal . GRAN MAT (NEUT) % 56.1 % (test code = 770-8) IMM GRAN % (test code 0.40 % = 3186608458) LYMPH % (test code = 29.9 % 736-9) MONO % (test code = 5.4 % 5905-5) EOS % (test code = 7.8 % 713-8) BASO % (test code = 0.4 % 706-2) GRAN MAT x10^3(ANC) 3.75 10*3/uL 1.88-7.09 (test code = 2332455896) IMM GRAN x10^3 (test 0.03 10*3/uL 0.00-0.06 code = 6412362220) LYMPH x10^3 (test code 2.00 10*3/uL 1.32-3.29 = 731-0) MONO x10^3 (test code 0.36 10*3/uL 0.33-0.92 = 742-7) EOS x10^3 (test code = 0.52 10*3/uL 0.03-0.39 H 711-2) BASO x10^3 (test code 0.03 10*3/uL 0.01-0.07 = 704-7) Lab Interpretation Abnormal (test code = 33132-1) [id number]00 Test Item Value Reference Range Interpretation Comments POCT PREG (test code = 1605) negative On board controls acceptable with present C Line (test code = 3574) POCT PREG LOT # (test code = 3575) [id number] POCT PREG TEST DATE (test 08-11-2023 code = 3576) Lab Interpretation (test code = Normal 50157-5) [facility] WITH [id number] 15:21:11 Test Item Value Reference Range Interpretation [...] RDW-SD (test code = 42.6 fL 39.0-49.9 44709-0) RDW-CV (test code = 12.9 % 12.0-15.5 788-0) PLT (test code = See_Comment H [Automated 777-3) message] The sy stem which generated this result transmitted reference range : 166 - 358 10*3/ ?L. The reference r david was not used to interpret this result as normal/abnormal . MPV (test code = 9.1 fL 9.5-12.9 L 96242-8) NRBC/100 WBC (test See_Comment [Automat ed code = [id number]) message] The system which generated this result transmitted reference range : 0.0 - 10.0 /100 WBCs. The refer ence range was not u sed to interpret th is result as normal/abnormal . NRBC x10^3 (test code See_Comment [Auto mated = [id number]) message] The s ystem which generated this result transmitted reference range : 10*3/?L. The reference range was not used to interpret this result as normal/abnormal . GRAN MAT (NEUT) % 56.8 % (test code = 770-8) IMM GRAN % (test code 0.30 % = 8221992102) LYMPH % (test code = 29.5 % 736-9) MONO % (test code = 4.3 % 5905-5) EOS % (test code = 8.3 % 713-8) BASO % (test code = 0.8 % 706-2) GRAN MAT x10^3(ANC) 3.57 10*3/uL 1.88-7.09 (test code = 5506203686) IMM GRAN x10^3 (test 0.00-0.06 code = 4406192686) LYMPH x10^3 (test code 1.85 10*3/uL 1.32-3.29 = 731-0) MONO x10^3 (test code 0.27 10*3/uL 0.33-0.92 L = 742-7) EOS x10^3 (test code = 0.52 10*3/uL 0.03-0.39 H 711-2) BASO x10^3 (test code 0.05 10*3/uL 0.01-0.07 = 704-7) Lab Interpretation Abnormal (test code = 50151-7) [facility] ([id number])2022-04-26 15:12:13 Test Item Value Reference Range Interpretation Comments NA (test code = 141 mmol/L 135-145 9768354275) K (test code = 3.4 mmol/L 3.5-5.0 L 4918467093) CL (test code = 104 mmol/L 98-108 2988447583) CO2 TOTAL (test code = 23 mmol/L 23-31 4986943809) AGAP (test code = 2-16 2415931527) BUN (test code = 9 mg/dL 7-23 1219492126) GLUCOSE (test code = 101 mg/dL 70-110 8704099734) CREATININE (test code = 0.82 mg/dL 0.50-1.04 4885523857) TOTAL BILI (test code = 0.7 mg/dL 0.1-1.5 6168340246) CALCIUM (test code = 9.3 mg/dL 8.6-10.6 0004790859) T PROTEIN (test code = 8.1 g/dL 6.3-8.2 0385758862) ALBUMIN (test code = 4.7 g/dL 3.5-5.0 9496523333) ALK PHOS (test code = 108 U/L 34-122 5948176963) ALTv (test code = 24 U/L 5-35 1742-6) AST(SGOT) (test code = 49 U/L 13-40 H 8576101039) eGFR (test code = mL/min/1.73m2 3077413500) WESLEY (test code = WESLEY) Association of [...] tests). Lab Interpretation Abnormal (test code = 28512-0) [facility] [id number] 14:45:00 Test Item Value Reference Range Interpretation Comments POCT PREG (test code = 1605) negative On board controls acceptable with present C Line (test code = 3574) POCT PREG LOT # (test code = 3575) [id number] POCT PREG TEST DATE (test 08/11/2023 code = 3576) Lab Interpretation (test code = Normal 41131-1) [facility] [id number] 01:22:00 Test Item Value Reference Range Interpretation Comments POCT PREG (test code = 1605) Negative On board controls acceptable with Present C Line (test code = 3574) POCT PREG LOT # (test code = 3575) [id number] POCT PREG TEST DATE (test 08-11-2023 code = 3576) Lab Interpretation (test code = Normal 47696-2) [facility] METABOLIC PANEL (NA, K, CL, CO2, GLUCOSE, BUN, CREATININE, CA)2022-04-07 23:01:10 Test Item Value Reference Range Interpretation Comments NA (test code = 138 mmol/L 135-145 6379927872) K (test code = 4.3 mmol/L 3.5-5.0 3851522933) CL (test code = 107 mmol/L 98-108 4814263104) CO2 TOTAL (test code = 20 mmol/L 23-31 L 8520107495) AGAP (test code = 2-16 9390556764) BUN (test code = 9 mg/dL 7-23 9478801921) GLUCOSE (test code = 204 mg/dL 70-110 H 1395631909) CREATININE (test code = 0.74 mg/dL 0.50-1.04 9618532877) CALCIUM (test code = 9.1 mg/dL 8.6-10.6 4449605496) eGFR (test code = mL/min/1.73m2 7279458720) WESLEY (test code = WESLEY) Association of [...] tests). Lab Interpretation Abnormal (test code = 86328-1) [facility] WITH [id number] 22:57:34 Test Item Value Reference Range Interpretation Comments WBC (test code = See_Comment [Automated 3094-2) message] The sy stem which generated this result transmitted reference range : 4.30 - 11.10 10*3/?L. The reference range was not used to interpret this result as normal/abnormal . RBC (test code = See_Comment [Automated 929-8) message] The sy stem which generated this [...] RDW-SD (test code = 42.9 fL 39.0-49.9 62343-8) RDW-CV (test code = 13.4 % 12.0-15.5 788-0) PLT (test code = See_Comment H [Automated 707-3) message] The sy stem which generated this result transmitted reference range : 166 - 358 10*3/ ?L. The reference r david was not used to interpret this result as normal/abnormal . MPV (test code = 8.9 fL 9.5-12.9 L 85100-1) NRBC/100 WBC (test See_Comment [Automat ed code = 6440167523) message] The system which generated this result transmitted reference range : 0.0 - 10.0 /100 WBCs. The refer ence range was not u sed to interpret th is result as normal/abnormal . NRBC x10^3 (test code See_Comment [Auto mated = 3188494035) message] The s ystem which generated this result transmitted reference range : 10*3/?L. The reference range was not used to interpret this result as normal/abnormal . GRAN MAT (NEUT) % 88.7 % (test code = 770-8) IMM GRAN % (test code 0.70 % = 7319986977) LYMPH % (test code = 9.4 % 736-9) MONO % (test code = 0.9 % 5905-5) EOS % (test code = 0.1 % 713-8) BASO % (test code = 0.2 % 706-2) GRAN MAT x10^3(ANC) 7.81 10*3/uL 1.88-7.09 H (test code = 7517733967) IMM GRAN x10^3 (test 0.06 10*3/uL 0.00-0.06 code = 7973860619) LYMPH x10^3 (test code 0.83 10*3/uL 1.32-3.29 L = 731-0) MONO x10^3 (test code 0.08 10*3/uL 0.33-0.92 L = 742-7) EOS x10^3 (test code = 0.03-0.39 L 711-2) BASO x10^3 (test code 0.01-0.07 = 704-7) Lab Interpretation Abnormal (test code = 00946-8) [facility] [id number] 14:07:00 Test Item Value Reference Range Interpretation Comments POCT PREG (test code = 1605) negative On board controls acceptable with present C Line (test code = 3574) POCT PREG LOT # (test code = 3575) [id number] POCT PREG TEST DATE (test 08/11/2023 code = 3576) Lab Interpretation (test code = Normal 36773-2) [facility] [id number] 13:52:00 Test Item Value Reference Range Interpretation Comments POCT PREG (test code = 1605) negative On board controls acceptable with C present Line (test code = 3574) Lab Interpretation (test code = Normal 40549-6) [facility] [id number] 14:59:00 Test Item Value Reference Range Interpretation Comments POCT PREG (test code = 1605) negative On board controls acceptable with yes C Line (test code = 3574) POCT PREG LOT # (test code = 3575) [id number] POCT PREG TEST DATE (test 07/11/2023 code = 3576) Lab Interpretation (test code = Normal 35849-2) [facility] METABOLIC PANEL ([id number])2022 17:51:43 Test Item Value Reference Range Interpretation Comments NA (test code = 139 mmol/L 135-145 8481504312) K (test code = 4.1 mmol/L 3.5-5 6812614588) CL (test code = 104 mmol/L 98-108 3061732196) CO2 TOTAL (test code = 22 mmol/L 23-31 L 5302913099) AGAP (test code = 2-16 0402538316) BUN (test code = 7 mg/dL 7-23 7480268302) GLUCOSE (test code = 114 mg/dL 70-110 H 4861015798) CREATININE (test code = 0.69 mg/dL 0.5-1.04 6254845765) TOTAL BILI (test code = 0.4 mg/dL 0.1-1.6 2018885341) CALCIUM (test code = 9.7 mg/dL 8.6-10.6 5420098936) T PROTEIN (test code = 7.2 g/dL 6.3-8.2 8812628588) ALBUMIN (test code = 4.6 g/dL 3.5-5 1148809559) ALK PHOS (test code = 65 U/L 34-122 2217179018) ALTv (test code = 15 U/L 5-35 1742-6) AST(SGOT) (test code = 19 U/L 13-40 7753971570) eGFR (test code = mL/min/1.73m2 2912539343) WESLEY (test code = WESLEY) Association of [...] tests). Lab Interpretation Abnormal (test code = 67289-0) [facility] WITH [id number] 17:40:24 Test Item Value Reference Range Interpretation Comments WBC (test code = See_Comment [Automated 3601-2) message] The sy stem which generated this result transmitted reference range : 4.30 - 11.10 10*3/?L. The reference range was not used to interpret this result as normal/abnormal . RBC (test code = See_Comment [Automated 812-0) message] The sy stem which generated this [...] RDW-SD (test code = 43.1 fL 39-49.9 83076-4) RDW-CV (test code = 13.2 % 12-15.5 788-0) PLT (test code = See_Comment [Automated 777-3) message] The sy stem which generated this result transmitted reference range : 166 - 358 10*3/ ?L. The reference r david was not used to interpret this result as normal/abnormal . MPV (test code = 9.5 fL 9.5-12.9 50749-7) NRBC/100 WBC (test See_Comment [Automat ed code = 7468642464) message] The system which generated this result transmitted reference range : 0.0 - 10.0 /100 WBCs. The refer ence range was not u sed to interpret th is result as normal/abnormal . NRBC x10^3 (test code See_Comment [Auto mated = 7937404470) message] The s ystem which generated this result transmitted reference range : 10*3/?L. The reference range was not used to interpret this result as normal/abnormal . GRAN MAT (NEUT) % 57.8 % (test code = 770-8) IMM GRAN % (test code 0.20 % = 3302833411) LYMPH % (test code = 30.8 % 736-9) MONO % (test code = 5.1 % 5905-5) EOS % (test code = 5.6 % 713-8) BASO % (test code = 0.5 % 706-2) GRAN MAT x10^3(ANC) 3.61 10*3/uL 1.88-7.09 (test code = 9088961617) IMM GRAN x10^3 (test 0-0.06 code = 0085754149) LYMPH x10^3 (test code 1.92 10*3/uL 1.32-3.29 = 731-0) MONO x10^3 (test code 0.32 10*3/uL 0.33-0.92 L = 742-7) EOS x10^3 (test code = 0.35 10*3/uL 0.03-0.39 711-2) BASO x10^3 (test code 0.03 10*3/uL 0.01-0.07 = 704-7) Lab Interpretation Abnormal (test code = 29626-5) [facility] [id number] 17:27:00 Test Item Value Reference Range Interpretation Comments POCT PREG (test code = 1605) negative On board controls acceptable with present C Line (test code = 3574) POCT PREG LOT # (test code = 3575) [id number] POCT PREG TEST DATE (test code = 3576) Lab Interpretation (test code = Normal 91511-4) [facility] 12:45:21 Test Item Value Reference Range Interpretation Comments LIPASE (test code = 3478762389) 41 U/L 0-220 Lab Interpretation (test code = Normal 46708-2) [facility] [id number] 10:57:00 Test Item Value Reference Range Interpretation Comments POCT PREG (test code = 1605) Negative On board controls acceptable with Present C Line (test code = 3574) POCT PREG LOT # (test code = 3575) [id number] POCT PREG TEST DATE (test 03/12/2023 code = 3576) Lab Interpretation (test code = Normal 57127-8) [facility] (NA, K, CL, CO2, GLUCOSE, BUN, CREATININE, CA)2022-01-18 10:56:51 Test Item Value Reference Range Interpretation Comments NA (test code = 137 mmol/L 135-145 9875927759) K (test code = 4.6 mmol/L 3.5-5 Slight 1404733746) hemolysis CL (test code = 108 mmol/L 98-108 8629536890) CO2 TOTAL (test code 22 mmol/L 23-31 L = 6098654920) AGAP (test code = 2-16 8237074630) BUN (test code = 11 mg/dL 7-23 Slight 9962882575) hemolysis GLUCOSE (test code = 83 mg/dL 70-110 7075757670) CREATININE (test code 0.68 mg/dL 0.5-1.04 = 0846250697) CALCIUM (test code = 8.8 mg/dL 8.6-10.6 1498452124) eGFR (test code = mL/min/1.73m2 3386883820) WESLEY (test code = WESLEY) Association of [...] tests). Lab Interpretation Abnormal (test code = 50280-5) [facility] (00991[facility] (ALB,T.PRO,BILI T,BU/BC,ALT,AST,ALK PHOS)2022-01-18 10:56:51 Test Item Value Reference Range Interpretation Comments TOTAL BILI (test code = 6817515670) 0.6 mg/dL 0.1-1.1 BILI UNCON (test code = 2404971972) 0.1 mg/dL 0.1-1.1 BILI CONJ (test code = 0458154287) 0.0 mg/dL 0-0.3 T PROTEIN (test code = 1490495751) 8.6 g/dL 6.3-8.2 H ALBUMIN (test code = 0943623895) 5.1 g/dL 3.5-5 H ALK PHOS (test code = 2993230777) 79 U/L 34-122 ALTv (test code = 1742-6) 117 U/L 5-35 H AST(SGOT) (test code = 3118954977) 163 U/L 13-40 H Lab Interpretation (test code = Abnormal 11084-6) [facility], [id number] 10:54:25 Test Item Value Reference Range Interpretation Comments PREG SERUM (test code Negative = 7730613763) WESLEY (test code = WESLEY) Less than 10 IU/L. ?If low titer or ectopic is suspected, resubmit specimen in 48-72 hours. [facility] WITH [id number] 10:40:49 Test Item Value Reference Range Interpretation Comments WBC (test code = See_Comment [Automated 4685-2) message] The sy stem which generated this result transmitted reference range : 4.30 - 11.10 10*3/?L. The reference range was not used to interpret this result as normal/abnormal . RBC (test code = See_Comment [Automated 765-8) message] The sy stem which generated this [...] RDW-SD (test code = 45.3 fL 39-49.9 37914-1) RDW-CV (test code = 14.5 % 12-15.5 788-0) PLT (test code = See_Comment [Automated 777-3) message] The sy stem which generated this result transmitted reference range : 166 - 358 10*3/ ?L. The reference r david was not used to interpret this result as normal/abnormal . MPV (test code = 9.5 fL 9.5-12.9 74418-5) NRBC/100 WBC (test See_Comment [Automat ed code = 1169187681) message] The system which generated this result transmitted reference range : 0.0 - 10.0 /100 WBCs. The refer ence range was not u sed to interpret th is result as normal/abnormal . NRBC x10^3 (test code See_Comment [Auto mated = 6465008908) message] The s ystem which generated this result transmitted reference range : 10*3/?L. The reference range was not used to interpret this result as normal/abnormal . GRAN MAT (NEUT) % 47.6 % (test code = 770-8) IMM GRAN % (test code 0.60 % = 1269485704) LYMPH % (test code = 39.9 % 736-9) MONO % (test code = 5.9 % 5905-5) EOS % (test code = 5.3 % 713-8) BASO % (test code = 0.7 % 706-2) GRAN MAT x10^3(ANC) 4.45 10*3/uL 1.88-7.09 (test code = 6993672575) IMM GRAN x10^3 (test 0.06 10*3/uL 0-0.06 code = 5680708878) LYMPH x10^3 (test code 3.74 10*3/uL 1.32-3.29 H = 731-0) MONO x10^3 (test code 0.55 10*3/uL 0.33-0.92 = 742-7) EOS x10^3 (test code = 0.50 10*3/uL 0.03-0.39 H 711-2) BASO x10^3 (test code 0.07 10*3/uL 0.01-0.07 = 704-7) Lab Interpretation Abnormal (test code = 22217-2) [facility] [id number] 18:31:00 Test Item Value Reference Range Interpretation Comments POCT PREG (test code = 1605) Negative On board controls acceptable with C Yes Line (test code = 3574) POCT PREG LOT # (test code = 3575) POCT PREG TEST DATE (test code = 3576) [facility] URINALYSIS W/O SPECIFIC [id number] 18:31:00 Test Item Value Reference Range Interpretation [...] code = 3257) Trace Negative - Negative [facility] Notes Date/Time Note Provider Source 2022-12-03 Formatting of this note might be differe nt from the original. Blayne Silva RN [facility] 08:57:03-00:00 Patient has an appointment 12/12/22. Blayne Silva RN 12/03/2022 8:57 AM "
[2022-12-29] MEDS ORDERED: ONDANSETRON 4 MG/2 ML VIAL ONE (07:44)
[2022-12-29] MEDS ORDERED: FAMOTIDINE 20 MG/2 ML VIAL IV ONE (07:44)
[2022-12-29] MEDS ORDERED: NA CHLORIDE 0.9% 1,000 ML ONE (07:44)
[2022-12-29 07:47] LABS: Absolute Lymphocytes (CBC) 1.5 K/uL (0.7-4.9); Hematocrit 36.5 % (36.0-45.0); MCV 84.6 fL (80-100); MPV 7.8 fL (7.6-11.3); Platelets 303 thou/uL (152-406); RBC Red Blood Cell Count 4.31 M/uL (3.86-4.86)
[2022-12-29 08:02] LABS: ALT/SGPT 125 U/L (13-56); AST/SGOT 131 U/L (15-37); Albumin 3.8 g/dL (3.4-5.0); Alkaline Phosphatase 180 U/L (45-117); BUN Blood Urea Nitrogen 4 mg/dL (7-18); Bicarbonate 21 mEq/L (21-32); Bilirubin Total 0.6 mg/dL (0.2-1.0); Glomerular Filtration Rate 94 ml/min (=/>90); Glucose Level 101 mg/dL (74-106); Lipase 15 U/L (13-75); Potassium 3.3 mEq/L (3.5-5.1); Protein, Total 7.7 g/dL (6.4-8.2); Sodium Level 138 mEq/L (136-145)
[2022-12-29 08:04] LABS: HCG, Quantitative < 1 mIU/mL (1-3)
[2022-12-29] MEDS ORDERED: MAGNES/ALUMIN/SIMET 30ML UCUP ONE (08:10)
[2022-12-29] MEDS ORDERED: MORPHINE 4 MG/ML SYR ONE (08:30)
--- NOTE | 2022-12-29 09:25 | RAD REPORT ---
EXAM DESCRIPTION: US - Abdomen Exam Limited - 12/29/2022 8:36 am CLINICAL HISTORY: RUQ pain, transaminitis, r/o retain stone COMPARISON: Abdomen Pelvis Wo Contrast dated 12/19/2022; Head C Spine Cap W Con dated 12/27/2022 TECHNIQUE: Sonographic grayscale and color flow images of the right upper abdominal quadrant were obtained. FINDINGS: The gallbladder was surgically removed. Heterogeneous fluid collection in the gallbladder fossa measuring 5.1 x 2.4 cm in greatest dimensions. The common bile duct is normal measuring 5 mm. The liver demonstrates no findings of intrahepatic biliary dilatation. IMPRESSION: Heterogeneous collection in the site, suggestive of a seroma. Short-term interval follow -up sonographic or CT imaging may be helpful. No intra or extrahepatic biliary dilation.
[2022-12-29] MEDS ORDERED: SUCRALFATE 1 GM TABLET ONE (09:47)
--- NOTE | 2022-12-29 10:01 | ER ---
Nurse's Notes [facility] Name: Natanael Dyson Age: 27 yrs Sex: Female : 1995 Arrival Date: 12/29/2022 Time: 07:15 Bed 5 Private MD: Diagnosis: Abdominal pain, Generalized Presentation: 12/29 07:27 Chief complaint: Upper abdominal pain and N/V after mechanical fall 2 days ago, hb vomiting it worse today, not tolerating fluids. Pt is 2 weeks s/p cholecystectomy. Coronavirus screen: At this time, the client does not indicate any symptoms associated with coronavirus-19. Ebola Screen: No symptoms or risks identified at this time. Initial Sepsis Screen: Does the patient meet any 2 criteria? No. Patient's initial sepsis screen is negative. Does the patient have a suspected source of infection? No. Patient's initial sepsis screen is negative. Risk Assessment: Do you want to hurt yourself or someone else? Patient reports no desire to harm self or others. Onset of symptoms was December 27, 2022. 07:27 Method Of Arrival: Ambulatory hb 07:27 Acuity: THIERNO 3 hb Historical: - Allergies: 07:29 Reglan; hb 07:29 Toradol; hb - Home Meds: 07:29 None [Active]; hb - PMHx: 07:29 Anxiety; depressive disorder; Kidney stone; hb - PSHx: 07:29 Cholecystectomy; Ligation of fallopian tube; hb - Immunization history:: Adult Immunizations up to date. - Social history:: Smoking status: Patient denies any tobacco usage or history of. Screenin:39 [facility] ED Fall Risk Assessment (Adult) History of falling in the last 3 months, ap3 including since admission Yes- single mechanical fall (1 pt) Confusion or Disorientation No (0 pts) Intoxicated or Sedated No (0 pts) Impaired Gait No (0 pts) Mobility Assist Device Used No (0 pt) Altered Elimination No (0 pt). Abuse screen: Denies threats or abuse. Nutritional screening: No deficits noted. Tuberculosis screening: No symptoms or risk factors identified. Assessment: 07:38 General: Appears uncomfortable, Behavior is calm, cooperative, appropriate for age. ap3 Pain: Complains of pain in left abdomen, left shoulder. Neuro: Level of Consciousness is awake, alert, obeys commands, Oriented to person, place, time, situation. Cardiovascular: Patient's skin is warm and dry. Respiratory: Airway is patent Respiratory effort is even, unlabored, Respiratory pattern is regular, symmetrical. GI: Abd is soft Reports lower abdominal pain, upper abdominal pain, intolerance of fluids, nausea. Vital Signs: 07:27 BP 140 / 96; Pulse 100; Resp 16; Temp 98(O); Pulse Ox 100% on R/A; Weight 63.5 kg; hb Height 5 ft. 1 in. ; Pain 8/10; 08:03 BP 125 / 91; Pulse 92; Resp 16; Pulse Ox 100% ; ko1 08:27 BP 120 / 82; Pulse 89; Pulse Ox 100% ; ap3 10:12 BP 122 / 85; Pulse 84; Resp 16; Pulse Ox 99% ; ko1 07:27 Body Mass Index 26.45 (63.50 kg, 154.94 cm) hb 07:27 Pain Scale: Adult hb ED Course: 07:19 Patient arrived in ED. im 07:19 Pam Frausto, ROSEY is Primary Nurse. ko1 07:20 Perry Broussard MD is Attending Physician. jr11 07:29 Triage completed. hb 07:29 Arm band placed on. hb 07:37 Initial lab(s) drawn, by me, sent to lab. Inserted saline lock: 22 gauge in right ap3 wrist, using aseptic technique. Blood collected. 07:38 CBC with Diff Sent. ko1 07:38 CMP Sent. ko1 07:38 Lipase Sent. ko1 07:38 HCG-Quantitative Sent. ko1 07:39 Patient has correct armband on for positive identification. Bed in low position. Call ap3 light in reach. Side rails up X2. Provided Education on: medications prior to administration . 08:37 US Abdomen Limited In Process Unspecified. EDMS 10:00 Lisandro Baldwin MD is Referral Physician. jr11 10:12 No provider procedures requiring assistance completed. IV discontinued, intact, ko1 bleeding controlled, No redness/swelling at site. Pressure dressing applied. Administered Medications: 07:38 Drug: NS 0.9% IV 1000 ml Route: IV; Rate: 1 bolus; Site: right wrist; ko1 09:14 Follow up: IV Status: Completed infusion ap3 07:38 Drug: Famotidine IVP 20 mg Route: IVP; Site: right wrist; ko1 09:14 Follow up: Response: No adverse reaction ap3 07:38 Drug: Ondansetron IVP 4 mg Route: IVP; Site: right wrist; ko1 09:14 Follow up: Response: No adverse reaction ap3 08:00 Drug: GI Cocktail with - (Phenobarbital-Belladonna PO 10 ml, Maalox PO ko1 Suspension 30 ml, Lidocaine Mucous Membrane Liquid 2 % 20 ml) Route: PO; 09:14 Follow up: Response: No adverse reaction ap3 08:22 Drug: morphine IVP or IV 4 mg Route: IVP; Infused Over: 4 mins; Site: right wrist; ko1 09:36 Follow up: Response: No adverse reaction; Pain is unchanged, physician notified ap3 09:41 Drug: Sucralfate PO 1 grams Route: PO; ko1 10:05 Drug: Dicyclomine IM 20 mg Route: IM; Site: left gluteus; ko1 Medication: 07:40 VIS not applicable for this client. ap3 Outcome: 10:00 Discharge ordered by . hillary 10:12 Discharged to home ambulatory. ko1 10:12 Condition: stable 10:12 Discharge instructions given to patient, Instructed on discharge instructions, follow up and referral plans. medication usage, Demonstrated understanding of instructions, follow-up care, medications, Prescriptions given X 2. 10:13 Patient left the ED. ko1 Signatures: Dispatcher [employer] EDMS Judi Rich RN RN hb Prokisch, Amanda, RN RN ap3 Perry Broussard MD MD jr11 Pam Frausto RN RN ko1 Margie Nettles im
--- NOTE | 2022-12-29 10:01 | EDPHYS ---
Physician Documentation [facility] Name: Natanael Dyson Age: 27 yrs Sex: Female : 1995 Arrival Date: 12/29/2022 Time: 07:15 Bed 5 Private MD: ED Physician Perry Broussard HPI: 12/29 07:48 This 27 yrs old Female presents to ER via Ambulatory with complaints of Abdominal Pain. jr11 07:48 The patient presents with abdominal pain in the left lower quadrant, abdominal jr11 distention. Patient is a 27-year-old status post gallbladder surgery approximately 2 weeks ago. Patient states that for the first week, she was doing better, pain was resolving. After that, she had a fall, hit her left upper side. Patient had a full trauma scan that was essentially negative, showed a seroma. Patient then returned 2 days ago with pain, she had a repeat study that showed that the seroma was improving. Patient is here with nausea vomiting and abdominal pain. Rates the pain 8 out of 10. Of note, she has a history of multiple ED visits for painful conditions to include renal colic and abdominal pain. Patient states she does not have any nausea medicine at home, has been taking Tylenol 3 as needed for pain. Historical: - Allergies: 07:29 Reglan; hb 07:29 Toradol; hb - Home Meds: 07:29 None [Active]; hb - PMHx: 07:29 Anxiety; depressive disorder; Kidney stone; hb - PSHx: 07:29 Cholecystectomy; Ligation of fallopian tube; hb - Immunization history:: Adult Immunizations up to date. - Social history:: Smoking status: Patient denies any tobacco usage or history of. ROS: 07:48 All other systems are negative. jr11 Exam: 07:48 Constitutional: This is a well developed, well nourished patient who is awake, alert, jr11 and in no acute distress. Head/Face: Normocephalic, atraumatic. Eyes: Extra-ocular motions intact. Lids and lashes normal. Conjunctiva and sclera are non-icteric and not injected. Cornea within normal limits. Periorbital areas with no swelling, redness, or edema. ENT: Nares patent. No nasal discharge, no septal abnormalities noted. Oropharynx with no redness, swelling, or masses, exudates, or evidence of obstruction, uvula midline. Mucous membranes moist. Neck: Trachea midline, no thyromegaly or masses palpated, and no cervical lymphadenopathy. Supple, full range of motion without nuchal rigidity, or vertebral point tenderness. No Meningismus. Chest/axilla: Normal chest wall appearance and motion. Nontender with no deformity. No lesions are appreciated. Cardiovascular: Regular rate and rhythm with a normal S1 and S2. No gallops, murmurs, or rubs. Normal PMI, no JVD. No pulse deficits. Abdomen/GI: ttp ke, NO PERITONITIS, incisions looks great. Skin: Warm, dry with normal turgor. Normal color with no rashes, no lesions, and no evidence of cellulitis. MS/ Extremity: Pulses equal, no cyanosis. Neurovascular intact. Full, normal range of motion. Vital Signs: 07:27 BP 140 / 96; Pulse 100; Resp 16; Temp 98(O); Pulse Ox 100% on R/A; Weight 63.5 kg; hb Height 5 ft. 1 in. ; Pain 8/10; 08:03 BP 125 / 91; Pulse 92; Resp 16; Pulse Ox 100% ; ko1 08:27 BP 120 / 82; Pulse 89; Pulse Ox 100% ; ap3 10:12 BP 122 / 85; Pulse 84; Resp 16; Pulse Ox 99% ; ko1 07:27 Body Mass Index 26.45 (63.50 kg, 154.94 cm) hb 07:27 Pain Scale: Adult hb MDM: 07:27 Patient medically screened. jr11 07:48 Differential diagnosis: bowel obstruction, gastritis, gastroesophageal reflux disease, jr11 Irritable bowel syndrome, non-specific abd pain, Peptic Ulcer Disease, Patient is a 27-year-old 2 weeks postop, has had 2 scans since then, not showing complications. Of note, low risk of retained stone given normal lab work, and no ductal dilatation. Will treat with symptomatically, she has been on Tylenol 3 that can cause nausea vomiting. Will hydrate, and do lab work. We will have shared decision making in regards to more imaging. 09:58 Data reviewed: vital signs, nurses notes. ED course: US interpreted by me, no ductal jr11 dilation. Pt to f/u GI possible scope. Given multiple visits for painful conditions, would recommend multimodal pain therapy. No concern retained stone, 2 CTs no traumatic finding on CTs, no benefit from a 3rd one in last 2 weeks. Pt agrees. ER warnings given. . 12/29 07:28 Order name: CBC with Diff; Complete Time: 07:58 12/29 07:28 Order name: CMP; Complete Time: 08:12/29 07:28 Order name: Lipase; Complete Time: 08:12/29 07:28 Order name: HCG-Quantitative; Complete Time: 08:12/29 08:10 Order name: US Abdomen Limited; Complete Time: 09:28 12/29 07:28 Order name: IV Saline Lock; Complete Time: 07:38 12/29 07:28 Order name: Labs collected and sent; Complete Time: 07:38 Administered Medications: 07:38 Drug: NS 0.9% IV 1000 ml Route: IV; Rate: 1 bolus; Site: right wrist; ko1 09:14 Follow up: IV Status: Completed infusion ap3 07:38 Drug: Famotidine IVP 20 mg Route: IVP; Site: right wrist; ko1 09:14 Follow up: Response: No adverse reaction ap3 07:38 Drug: Ondansetron IVP 4 mg Route: IVP; Site: right wrist; ko1 09:14 Follow up: Response: No adverse reaction ap3 08:00 Drug: GI Cocktail with - (Phenobarbital-Belladonna PO 10 ml, Maalox PO ko1 Suspension 30 ml, Lidocaine Mucous Membrane Liquid 2 % 20 ml) Route: PO; 09:14 Follow up: Response: No adverse reaction ap3 08:22 Drug: morphine IVP or IV 4 mg Route: IVP; Infused Over: 4 mins; Site: right wrist; ko1 09:36 Follow up: Response: No adverse reaction; Pain is unchanged, physician notified ap3 09:41 Drug: Sucralfate PO 1 grams Route: PO; ko1 10:05 Drug: Dicyclomine IM 20 mg Route: IM; Site: left gluteus; ko1 Disposition Summary: 12/29/22 10:00 Discharge Ordered Location: Home [facility] Condition: Stable [facility] Diagnosis - Abdominal pain, Generalized jr11 Followup: [facility] - With: Lisandro Baldwin MD - When: 2 - 3 days - Reason: Continuance of care Discharge Instructions: - Discharge Summary Sheet jr11 - Abdominal Pain, Adult, [id number] jr11 Forms: - Medication Reconciliation Form jr11 - Thank You Letter jr11 - Antibiotic Education jr11 - Prescription Opioid Use jr11 - Patient Portal Instructions jr11 - Leadership Thank You Letter jr11 Prescriptions: - hyoscyamine sulfate 0.125 mg Oral Tablet,disintegrating - take 1 tablet by ORAL route every 12 hours as needed for pain; 15 tablet; jr11 Refills: 0, Product Selection Permitted - Zofran 4 mg Oral Tablet - take 1 tablet by ORAL route every 12 hours As needed; 20 tablet; Refills: 0, jr11 Product Selection Permitted Signatures: Dispatcher [employer] EDMS Judi Rich RN RN Perry Mendez MD MD jr11 Pam Frausto RN RN ko1 Ileana Negrete RN ap3
[2022-12-29] MEDS ORDERED: DICYCLOMINE HCL 20 MG/2 ML AMP IM ONE (10:15)
[2022-12-29 10:18] VITALS: TEMP 98
[2022-12-29 10:23] VITALS: BP 122/85; O2SAT 99
== END 2022-12-29 10:13 | disposition home or self-care (01) ==
LOC: ER 07:15
DX: R10.84 Generalized abdominal pain (principal); F41.9 Anxiety disorder, unspecified; F32.A Depression, unspecified; Z98.890 Other specified postprocedural states; Z88.8 Allergy status to other drugs, medicaments and biological substances
CPT/HCPCS: 96361; 85025; 36415; 84702; 83690; 80053; 76705; 96375; 96372; 96374; 99284; J0500; J2405; J7030

== ENCOUNTER 2023-01-02 10:02 | Emergency (ER) | payer OTHER ==
--- OUTSIDE RECORDS SUMMARY | 2023-01-02 10:19 | XMS REPORT | Continuity of Care Document ---
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 methylPREDN 2023-0 Yes [id number] Take by [facility] ISolone 2-11 mouth ity of (MEDROL, 00:00: SEE-INSTRU [place]ELA,) 4 mg 00 CTIONS. Medica l tablets follow Branch package directions methylPREDN 2023-0 Yes [id number] Take by [facility] ISolone 2-11 mouth ity of (MEDROL, 00:00: SEE-INSTRU [place],) 4 mg 00 CTIONS. Medica l tablets follow Branch package directions methylPREDN 2023-0 Yes [id number] Take by [facility] ISolone 2-11 mouth ity of (MEDROL, 00:00: SEE-INSTRU [place],) 4 mg 00 CTIONS. Medica l tablets follow Branch package directions methylPREDN 2023-0 Yes [id number] Take by [facility] ISolone 2-11 mouth ity of (MEDROL, 00:00: SEE-INSTRU [place],) 4 mg 00 CTIONS. Medica l tablets follow Branch package directions methylPREDN 2023-0 Yes [id number] Take by [facility] ISolone 2-11 mouth ity of (MEDROL, 00:00: SEE-INSTRU [place],) 4 mg 00 CTIONS. Medica l tablets follow Branch package directions methylPREDN 2023-0 Yes [id number] Take by [facility] ISolone 2-11 mouth ity of (MEDROL, 00:00: SEE-INSTRU [place],) 4 mg 00 CTIONS. Medica l tablets follow Branch package directions methylPREDN Yes [id number] Take by [facility] ISolone 06-23 mouth ity of (MEDROL, 00:00: SEE-INSTRU [place]NA[place]ELA,) 4 mg 00 CTIONS. Medica l tablets follow Branch package directions bromphenira 2022- No [id number] 5mL Take 5 mL Univers mine-pseudo 06-23 by mouth 4 i ty of ephedrine-D 00:00: 05:59 (four) [place] as M (BROMFED 00 :00 times Medical DM) 230-10 daily as Bran ch mg/5 mL needed for syrup Cold symptoms for up to 10 days. methocarbam 2022- No [id number] 750mg Take 1 [facility] oL 750 mg 06-23 [id number] tablet by it y of tablet 00:00: [...] ity of en-caff 20:15: 20:56 ONCE, 1 [place] (ESGIC) 00 :00 dose, On Medical 50-325-40 [...] 05/05/22 at 1315, Routine butalbital- 2021-05 Yes [id number] 1{tbl} Take 1 [facility] acetaminoph 2-24 tablet by ity of en-caff 00:00: mouth [place] 50-325-40 00 every 4 Medical mg tablet (four) Branch hours as needed for Pain (scale 7-10). butalbital- 2021-05 Yes [id number] 1{tbl} Take 1 [facility] acetaminoph 2-24 tablet by ity of en-caff 00:00: mouth [place] 50-325-40 00 every 4 Medical mg tablet (four) Branch hours as needed for Pain (scale 7-10). butalbital- 2021-05 Yes [id number] 1{tbl} Take 1 [facility] acetaminoph 2-24 tablet by ity of en-caff 00:00: mouth [place] 50-325-40 00 every 4 Medical mg tablet (four) Branch hours as needed for Pain (scale 7-10). butalbital- 2021-05 Yes [id number] 1{tbl} Take 1 [facility] acetaminoph 2-24 tablet by ity of en-caff 00:00: mouth [place] 50-325-40 00 every 4 Medical mg tablet (four) Branch hours as needed for Pain (scale 7-10). butalbital- 2021-05 Yes [id number] 1{tbl} Take 1 [facility] acetaminoph 2-24 tablet by ity of en-caff 00:00: mouth [place] 50-325-40 00 every 4 Medical mg tablet (four) Branch hours as needed for Pain (scale 7-10). butalbital- 2021-05 Yes [id number] 1{tbl} Take 1 [facility] acetaminoph 2-24 tablet by ity of en-caff 00:00: mouth [place] 50-325-40 00 every 4 Medical mg tablet (four) Branch hours as needed for Pain (scale 7-10). butalbital- 2021-05 Yes [id number] 1{tbl} Take 1 [facility] acetaminoph 2-24 tablet by ity of en-caff 00:00: mouth [place] 50-325-40 00 every 4 Medical mg tablet (four) Branch hours as needed for Pain (scale 7-10). butalbital2021-05 Yes [id number] 1{tbl} Take 1 [facility] acetaminoph 2-24 tablet by ity of en-caff 00:00: mouth [place] 50-325-40 00 every 4 Medical mg tablet (four) Branch hours as needed for Pain (scale 7-10). butalbital2021-05 Yes [id number] 1{tbl} Take 1 [facility] acetaminoph 2-24 tablet by ity of en-caff 00:00: mouth [place] 50-325-40 00 every 4 Medical mg tablet (four) Branch hours as needed for Pain (scale 7-10). butalbital2021-05 Yes [id number] 1{tbl} Take 1 [facility] acetaminoph 2-24 tablet by ity of en-caff 00:00: mouth [place] 50-325-40 00 every 4 Medical mg tablet (four) Branch hours as needed for Pain (scale 7-10). butalbital2021-05 Yes [id number] 1{tbl} Take 1 [facility] acetaminoph 2-24 tablet by ity of en-caff 00:00: mouth [place] 50-325-40 00 every 4 Medical mg tablet (four) Branch hours as needed for Pain (scale 7-10). butalbital2021-05 Yes [id number] 1{tbl} Take 1 [facility] acetaminoph 2-24 tablet by ity of en-caff 00:00: mouth [place] 50-325-40 00 every 4 Medical mg tablet (four) Branch hours as needed for Pain (scale 7-10). butalbital2021-05 Yes [id number] 1{tbl} Take 1 [facility] acetaminoph 2-24 tablet by ity of en-caff 00:00: mouth [place] 50-325-40 00 every 4 Medical mg tablet (four) Branch hours as needed for Pain (scale 7-10). butalbital2021-05 Yes [id number] 1{tbl} Take 1 [facility] acetaminoph 2-24 tablet by ity of en-caff 00:00: mouth [place] 50-325-40 00 every 4 Medical mg tablet (four) Branch hours as needed for Pain (scale 7-10). butalbital2021-05 Yes [id number] 1{tbl} Take 1 [facility] acetaminoph 2-24 tablet by ity of en-caff 00:00: mouth [place] 50-325-40 00 every 4 Medical mg tablet (four) Branch hours as needed for Pain (scale 7-10). butalbital2021-05 Yes [id number] 1{tbl} Take 1 [facility] acetaminoph 2-24 tablet [...] dose, On Medi yessi mg [facility] Branch 04/26/22 at 0845, Routine cephALEXin 2021-05 No [id number] 500mg Take 1 Univers (KEFLEX) 2-05-04 capsule [...] Nausea and Vomiting (N/V). galcanezuma 2021-05 Yes [id number] 120mg inject 120 [facility] b-gnlm 1-28 mg under ity of prefilled 00:00: [place] (EMGALITY) 00 once every Med ical subcutaneou month. Branch s injection galcanezuma 2021-05 Yes [id number] 120mg inject 120 [facility] b-gnlm 1-28 mg under ity of prefilled 00:00: [place] (EMGALITY) 00 once every Med ical subcutaneou month. Branch s injection galcanezuma 2021-05 Yes [id number] 120mg inject 120 [facility] b-gnlm 1-28 mg under ity of prefilled 00:00: [place] (EMGALITY) 00 once every Med ical subcutaneou month. Branch s injection galcanezuma 2021-05 Yes [id number] 120mg inject 120 [facility] b-gnlm 1-28 mg under ity of prefilled 00:00: [place] (EMGALITY) 00 once every Med ical subcutaneou month. Branch s injection galcanezuma 2021-05 Yes [id number] 120mg inject 120 [facility] b-gnlm 1-28 mg under ity of prefilled 00:00: [place] (EMGALITY) 00 once every Med ical subcutaneou month. Branch s injection galcanezuma 2021-05 Yes [id number] 120mg inject 120 [facility] b-gnlm 1-28 mg under ity of prefilled 00:00: [place] (EMGALITY) 00 once every Med ical subcutaneou month. Branch s injection galcanezuma 2021-05 Yes [id number] 120mg inject 120 [facility] b-gnlm 1-28 mg under ity of prefilled 00:00: [place] (EMGALITY) 00 once every Med ical subcutaneou month. Branch s injection galcanezuma 2021-05 Yes [id number] 120mg inject 120 [facility] b-gnlm 1-28 mg under ity of prefilled 00:00: [place] (EMGALITY) 00 once every Med ical subcutaneou month. Branch s injection galcanezuma 2021-05 Yes [id number] 120mg inject 120 [facility] b-gnlm 1-28 mg under ity of prefilled 00:00: [place] (EMGALITY) 00 once every Med ical subcutaneou month. Branch s injection galcanezuma 2021-05 Yes [id number] 120mg inject 120 [facility] b-gnlm 1-28 mg under ity of prefilled 00:00: [place] (EMGALITY) 00 once every Med ical subcutaneou month. Branch s injection galcanezuma 2021-05 Yes [id number] 120mg inject 120 [facility] b-gnlm 1-28 mg under ity of prefilled 00:00: [place] (EMGALITY) 00 once every Med ical subcutaneou month. Branch s injection galcanezuma 2021-05 Yes [id number] 120mg inject 120 [facility] b-gnlm 1-28 mg under ity of prefilled 00:00: [place] (EMGALITY) 00 once every Med ical subcutaneou month. Branch s injection galcanezuma 2021-05 Yes [id number] 120mg inject 120 [facility] b-gnlm 1-28 mg under ity of prefilled 00:00: [place] (EMGALITY) 00 once every Med ical subcutaneou month. Branch s injection galcanezuma 2021-05 Yes [id number] 120mg inject 120 [facility] b-gnlm 1-28 mg under ity of prefilled 00:00: [place] (EMGALITY) 00 once every Med ical subcutaneou month. Branch s injection galcanezuma 2021-05 Yes [id number] 120mg inject 120 [facility] b-gnlm 1-28 mg under ity of prefilled 00:00: [place] (EMGALITY) 00 once every Med ical subcutaneou month. Branch s injection galcanezuma 2021-05 Yes [id number] 120mg inject 120 [facility] b-gnlm 1-28 mg under ity of prefilled 00:00: [place] (EMGALITY) 00 once every Med ical subcutaneou month. Branch s injection galcanezuma 2021-05 Yes [id number] 120mg inject 120 [facility] b-gnlm 1-28 mg under ity of prefilled 00:00: [place] (EMGALITY) 00 once every Med ical subcutaneou month. Branch s injection galcanezuma 2021-05 Yes [id number] 120mg inject 120 [facility] b-gnlm 1-28 mg under ity of prefilled 00:00: [place] (EMGALITY) 00 once every Med ical subcutaneou month. Branch s injection galcanezuma 2021-05 Yes [id number] 120mg inject 120 [facility] b-gnlm 1-28 mg under ity of prefilled 00:00: [place] (EMGALITY) 00 once every Med ical subcutaneou month. Branch s injection galcanezuma 2021-05 Yes [id number] 120mg inject 120 [facility] b-gnlm 1-28 mg under ity of prefilled 00:00: [place] (EMGALITY) 00 once every Med ical subcutaneou month. Branch s injection galcanezuma 2021-05 Yes [id number] 120mg inject 120 [facility] b-gnlm 1-28 mg under ity of prefilled 00:00: [place] (EMGALITY) 00 once every Med ical subcutaneou month. Branch s injection galcanezuma 2021-05 Yes [id number] 120mg inject 120 [facility] b-gnlm 1-28 mg under ity of prefilled 00:00: [place] (EMGALITY) 00 once every Med ical subcutaneou month. Branch s injection galcanezuma 2021-05 Yes [id number] 120mg inject 120 [facility] b-gnlm 1-28 mg under ity of prefilled 00:00: [place] (EMGALITY) 00 once every Med ical subcutaneou month. Branch s injection galcanezuma 2021-05 Yes [id number] 120mg inject 120 [facility] b-gnlm 1-28 mg under ity of prefilled 00:00: [place] (EMGALITY) 00 once every Med ical subcutaneou month. Branch s injection galcanezuma 2021-05 Yes [id number] 120mg inject 120 [facility] b-gnlm 1-28 mg under ity of prefilled 00:00: [place] (EMGALITY) 00 once every Med ical subcutaneou month. Branch s injection galcanezuma 2021-05 Yes [id number] 120mg inject 120 [facility] b-gnlm 1-28 mg under ity of prefilled 00:00: [place] (EMGALITY) 00 once every Med ical subcutaneou month. Branch s injection galcanezuma 2021-05 Yes [id number] 120mg inject 120 [facility] b-gnlm 1-28 mg under ity of prefilled 00:00: [place] (EMGALITY) 00 once every Med ical subcutaneou month. Branch s injection galcanezuma 2021-05 Yes [id number] 120mg inject 120 [facility] b-gnlm 1-28 mg under ity of prefilled 00:00: the [place] (EMGALITY) 00 once every Med ical subcutaneou month. Branch s injection galcanezuma 2021-05 Yes [id number] 120mg inject 120 [facility] b-gnlm 1-28 mg under ity of prefilled 00:00: the [place] (EMGALITY) 00 once every Med ical subcutaneou month. Branch s injection galcanezuma 2021-05 Yes [id number] 120mg inject 120 [facility] b-gnlm 1-28 mg under ity of prefilled 00:00: the [place] (EMGALITY) 00 once every Med ical subcutaneou month. Branch s injection galcanezuma 2021-05 Yes [id number] 120mg inject 120 [facility] b-gnlm 1-28 mg under ity of prefilled 00:00: [place] (EMGALITY) 00 once every Med ical subcutaneou month. Branch s injection methocarbam 2021-05 Yes 1000mg 1,000 mg, Univers oL 06-08 Intravenou ity of (ROBAXIN) 04:00: s, Q8H, [place] injection 00 First dose Medi yessi 1,000 mg on Sat [place] 04/07/22 at 2200, Until Discontinu ed, Routine [...] 13 :00 Medical Branch rizatriptan 2021-05 Yes [id number] 10mg Take 1 [facility] 10 mg 1-12 tablet by ity of tablet 00:00: mouth as [place] 00 needed for Medical Migraine. Branch May repeat in 2 hours if needed Butalbital- 2021-05 Yes [id number] 1{capsu Take 1 [facility] Acetaminoph 1-12 le} [...] daily. Indication s: headache rizatriptan 2021-05 Yes [id number] 10mg Take 1 [facility] 10 mg 1-12 tablet by ity of tablet 00:00: mouth as [place] 00 needed for Medical Migraine. Branch May repeat in 2 hours if needed Butalbital- 2021-05 Yes [id number] 1{capsu Take 1 [facility] Acetaminoph 1-12 le} [...] daily. Indication s: headache rizatriptan 2021-05 Yes [id number] 10mg Take 1 [facility] 10 mg 1-12 tablet by ity of tablet 00:00: mouth as [place] 00 needed for Medical Migraine. Branch May repeat in 2 hours if needed Butalbital- 2021-05 Yes [id number] 1{capsu Take 1 [facility] Acetaminoph 1-12 le} [...] daily. Indication s: headache rizatriptan 2021-05 Yes [id number] 10mg Take 1 [facility] 10 mg 1-12 tablet by ity of tablet 00:00: mouth as [place] 00 needed for Medical Migraine. Branch May repeat in 2 hours if needed Butalbital- 2021-05 Yes [id number] 1{capsu Take 1 [facility] Acetaminoph 1-12 le} capsule by it y of en-Caff 00:00: mouth [place] (FIORICET) 00 every 6 Medica l 50-300-40 (six) Branch mg per hours as capsule needed for Other (headache) . rizatriptan 2021-05 Yes [id number] 10mg Take 1 [facility] 10 mg 1-12 tablet by ity of tablet 00:00: mouth as [place] 00 needed for Medical Migraine. Branch May repeat in 2 hours if needed Butalbital- 2021-05 Yes [id number] 1{capsu Take 1 [facility] Acetaminoph 1-12 le} capsule by it y of en-Caff 00:00: mouth [place] (FIORICET) 00 every 6 Medica l 50-300-40 (six) Branch mg per hours as capsule needed for Other (headache) . rizatriptan 2021-05 Yes [id number] 10mg Take 1 [facility] 10 mg 1-12 tablet by ity of tablet 00:00: mouth as [place] 00 needed for Medical Migraine. Branch May repeat in 2 hours if needed Butalbital- 2021-05 Yes [id number] 1{capsu Take 1 [facility] Acetaminoph 1-12 le} capsule by it y of en-Caff 00:00: mouth [place] (FIORICET) 00 every 6 Medica l 50-300-40 (six) Branch mg per hours as capsule needed for Other (headache) . rizatriptan 2021-05 Yes [id number] 10mg Take 1 [facility] 10 mg 1-12 tablet by ity of tablet 00:00: mouth as [place] 00 needed for Medical Migraine. Branch May repeat in 2 hours if needed Butalbital- 2021-05 Yes [id number] 1{capsu Take 1 Univers Acetaminoph 1-12 le} capsule by it y of en-Caff 00:00: mouth [place] (FIORICET) 00 every 6 Medica l 50-300-40 (six) Branch mg per hours as capsule needed for Other (headache) . rizatriptan 2021-05 Yes [id number] 10mg Take 1 [facility] 10 mg 1-12 tablet by ity of tablet 00:00: mouth as [place] 00 needed for Medical Migraine. Branch May repeat in 2 hours if needed Butalbital- 2021-05 Yes [id number] 1{capsu Take 1 [facility] Acetaminoph 1-12 le} capsule by it y of en-Caff 00:00: mouth [place] (FIORICET) 00 every 6 Medica l 50-300-40 (six) Branch mg per hours as capsule needed for Other (headache) . rizatriptan 2021-05 Yes [id number] 10mg Take 1 [facility] 10 mg 1-12 tablet by ity of tablet 00:00: mouth as [place] 00 needed for Medical Migraine. Branch May repeat in 2 hours if needed Butalbital- 2021-05 Yes [id number] 1{capsu Take 1 [facility] Acetaminoph 1-12 le} capsule by it y of en-Caff 00:00: mouth [place] (FIORICET) 00 every 6 Medica l 50-300-40 (six) Branch mg per hours as capsule needed for Other (headache) . rizatriptan 2021-05 Yes [id number] 10mg Take 1 [facility] 10 mg 1-12 tablet by ity of tablet 00:00: mouth as [place] 00 needed for Medical Migraine. Branch May repeat in 2 hours if needed Butalbital- 2021-05 Yes [id number] 1{capsu Take 1 [facility] Acetaminoph 1-12 le} capsule by it y of en-Caff 00:00: mouth [place] (FIORICET) 00 every 6 Medica l 50-300-40 (six) Branch mg per hours as capsule needed for Other (headache) . rizatriptan 2021-05 Yes [id number] 10mg Take 1 [facility] 10 mg 1-12 tablet by ity of tablet 00:00: mouth as [place] 00 needed for Medical Migraine. Branch May repeat in 2 hours if needed Butalbital- 2021-05 Yes [id number] 1{capsu Take 1 [facility] Acetaminoph 1-12 le} capsule by it y of en-Caff 00:00: mouth [place] (FIORICET) 00 every 6 Medica l 50-300-40 (six) Branch mg per hours as capsule needed for Other (headache) . rizatriptan 2021-05 Yes [id number] 10mg Take 1 [facility] 10 mg 1-12 tablet by ity of tablet 00:00: mouth as [place] 00 needed for Medical Migraine. Branch May repeat in 2 hours if needed Butalbital- 2021-05 Yes [id number] 1{capsu Take 1 [facility] Acetaminoph 1-12 le} capsule by it y of en-Caff 00:00: mouth [place] (FIORICET) 00 every 6 Medica l 50-300-40 (six) Branch mg per hours as capsule needed for Other (headache) . rizatriptan 2021-05 Yes [id number] 10mg Take 1 Univers 10 mg 1-12 tablet by ity of tablet 00:00: mouth as [place] 00 needed for Medical Migraine. Branch May repeat in 2 hours if needed Butalbital- 2021-05 Yes [id number] 1{capsu Take 1 Univers Acetaminoph 1-12 le} capsule by it y of en-Caff 00:00: mouth [place] (FIORICET) 00 every 6 Medica l 50-300-40 (six) Branch mg per hours as capsule needed for Other (headache) . rizatriptan 2021-05 Yes [id number] 10mg Take 1 [facility] 10 mg 1-12 tablet by ity of tablet 00:00: mouth as [place] 00 needed for Medical Migraine. Branch May repeat in 2 hours if needed Butalbital- 2021-05 Yes [id number] 1{capsu Take 1 Univers Acetaminoph 1-12 le} capsule by it y of en-Caff 00:00: mouth [place] (FIORICET) 00 every 6 Medica l 50-300-40 (six) Branch mg per hours as capsule needed for Other (headache) . rizatriptan 2021-05 Yes [id number] 10mg Take 1 Univers 10 mg 1-12 tablet by ity of tablet 00:00: mouth as [place] 00 needed for Medical Migraine. Branch May repeat in 2 hours if needed Butalbital- 2021-05 Yes [id number] 1{capsu Take 1 Univers Acetaminoph 1-12 le} capsule by it y of en-Caff 00:00: mouth [place] (FIORICET) 00 every 6 Medica l 50-300-40 (six) Branch mg per hours as capsule needed for Other (headache) . rizatriptan 2021-05 Yes [id number] 10mg Take 1 Univers 10 mg 1-12 tablet by ity of tablet 00:00: mouth as [place] 00 needed for Medical Migraine. Branch May repeat in 2 hours if needed Butalbital- 2021-05 Yes [id number] 1{capsu Take 1 Univers Acetaminoph 1-12 le} capsule by it y of en-Caff 00:00: mouth [place] (FIORICET) 00 every 6 Medica l 50-300-40 (six) Branch mg per hours as capsule needed for Other (headache) . rizatriptan 2021-05 Yes [id number] 10mg Take 1 [facility] 10 mg 1-12 tablet by ity of tablet 00:00: mouth as [place] 00 needed for Medical Migraine. Branch May repeat in 2 hours if needed Butalbital- 2021-05 Yes [id number] 1{capsu Take 1 [facility] Acetaminoph 1-12 le} capsule by it y of en-Caff 00:00: mouth [place] (FIORICET) 00 every 6 Medica l 50-300-40 (six) Branch mg per hours as capsule needed for Other (headache) . rizatriptan 2021-05 Yes [id number] 10mg Take 1 [facility] 10 mg 1-12 tablet by ity of tablet 00:00: mouth as [place] 00 needed for Medical Migraine. Branch May repeat in 2 hours if needed Butalbital- 2021-05 Yes [id number] 1{capsu Take 1 [facility] Acetaminoph 1-12 le} capsule by it y of en-Caff 00:00: mouth [place] (FIORICET) 00 every 6 Medica l 50-300-40 (six) Branch mg per hours as capsule needed for Other (headache) . rizatriptan 2021-05 Yes [id number] 10mg Take 1 [facility] 10 mg 1-12 tablet by ity of tablet 00:00: mouth as [place] 00 needed for Medical Migraine. Branch May repeat in 2 hours if needed Butalbital- 2021-05 Yes [id number] 1{capsu Take 1 Univers Acetaminoph 1-12 le} capsule by it y of en-Caff 00:00: mouth [place] (FIORICET) 00 every 6 Medica l 50-300-40 (six) Branch mg per hours as capsule needed for Other (headache) . rizatriptan 2021-05 Yes [id number] 10mg Take 1 [facility] 10 mg 1-12 tablet by ity of tablet 00:00: mouth as [place] 00 needed for Medical Migraine. Branch May repeat in 2 hours if needed Butalbital- 2021-05 Yes [id number] 1{capsu Take 1 [facility] Acetaminoph 1-12 le} capsule by it y of en-Caff 00:00: mouth [place] (FIORICET) 00 every 6 Medica l 50-300-40 (six) Branch mg per hours as capsule needed for Other (headache) . rizatriptan 2021-05 Yes [id number] 10mg Take 1 [facility] 10 mg 1-12 tablet by ity of tablet 00:00: mouth as [place] 00 needed for Medical Migraine. Branch May repeat in 2 hours if needed Butalbital- 2021-05 Yes [id number] 1{capsu Take 1 Univers Acetaminoph 1-12 le} capsule by it y of en-Caff 00:00: mouth [place] (FIORICET) 00 every 6 Medica l 50-300-40 (six) Branch mg per hours as capsule needed for Other (headache) . rizatriptan 2021-05 Yes [id number] 10mg Take 1 [facility] 10 mg 1-12 tablet by ity of tablet 00:00: mouth as [place] 00 needed for Medical Migraine. Branch May repeat in 2 hours if needed Butalbital- 2021-05 Yes [id number] 1{capsu Take 1 [facility] Acetaminoph 1-12 le} capsule by it y of en-Caff 00:00: mouth [place] (FIORICET) 00 every 6 Medica l 50-300-40 (six) Branch mg per hours as capsule needed for Other (headache) . rizatriptan 2021-05 Yes [id number] 10mg Take 1 [facility] 10 mg 1-12 tablet by ity of tablet 00:00: mouth as [place] 00 needed for Medical Migraine. Branch May repeat in 2 hours if needed Butalbital- 2021-05 Yes [id number] 1{capsu Take 1 [facility] Acetaminoph 1-12 le} capsule by it y of en-Caff 00:00: mouth [place] (FIORICET) 00 every 6 Medica l 50-300-40 (six) Branch mg per hours as capsule needed for Other (headache) . rizatriptan 2021-05 Yes [id number] 10mg Take 1 [facility] 10 mg 1-12 tablet by ity of tablet 00:00: mouth as [place] 00 needed for Medical Migraine. Branch May repeat in 2 hours if needed Butalbital- 2021-05 Yes [id number] 1{capsu Take 1 [facility] Acetaminoph 1-12 le} capsule by it y of en-Caff 00:00: mouth [place] (FIORICET) 00 every 6 Medica l 50-300-40 (six) Branch mg per hours as capsule needed for Other (headache) . rizatriptan 2021-05 Yes [id number] 10mg Take 1 [facility] 10 mg 1-12 tablet by ity of tablet 00:00: mouth as [place] 00 needed for Medical Migraine. Branch May repeat in 2 hours if needed Butalbital- 2021-05 Yes [id number] 1{capsu Take 1 [facility] Acetaminoph 1-12 le} capsule by it y of en-Caff 00:00: mouth [place] (FIORICET) 00 every 6 Medica l 50-300-40 (six) Branch mg per hours as capsule needed for Other (headache) . rizatriptan 2021-05 Yes [id number] 10mg Take 1 [facility] 10 mg 1-12 tablet by ity of tablet 00:00: mouth as [place] 00 needed for Medical Migraine. Branch May repeat in 2 hours if needed Butalbital- 2021-05 Yes [id number] 1{capsu Take 1 [facility] Acetaminoph 1-12 le} capsule by it y of en-Caff 00:00: mouth [place] (FIORICET) 00 every 6 Medica l 50-300-40 (six) Branch mg per hours as capsule needed for Other (headache) . rizatriptan 2021-05 Yes [id number] 10mg Take 1 [facility] 10 mg 1-12 tablet by ity of tablet 00:00: mouth as [place] 00 needed for Medical Migraine. Branch May repeat in 2 hours if needed Butalbital- 2021-05 Yes [id number] 1{capsu Take 1 [facility] Acetaminoph 1-12 le} capsule by it y of en-Caff 00:00: mouth [place] (FIORICET) 00 every 6 Medica l 50-300-40 (six) Branch mg per hours as capsule needed for Other (headache) . rizatriptan 2021-05 Yes [id number] 10mg Take 1 [facility] 10 mg 1-12 tablet by ity of tablet 00:00: mouth as [place] 00 needed for Medical Migraine. Branch May repeat in 2 hours if needed Butalbital- 2021-05 Yes [id number] 1{capsu Take 1 [facility] Acetaminoph 1-12 le} capsule by it y of en-Caff 00:00: mouth [place] (FIORICET) 00 every 6 Medica l 50-300-40 (six) Branch mg per hours as capsule needed for Other (headache) . rizatriptan 2021-05 Yes [id number] 10mg Take 1 [facility] 10 mg 1-12 tablet by ity of tablet 00:00: mouth as [place] 00 needed for Medical Migraine. Branch May repeat in 2 hours if needed Butalbital- 2021-05 Yes [id number] 1{capsu Take 1 [facility] Acetaminoph 1-12 le} capsule by it y of en-Caff 00:00: mouth [place] (FIORICET) 00 every 6 Medica l 50-300-40 (six) Branch mg per hours as capsule needed for Other (headache) . rizatriptan 2021-05 Yes [id number] 10mg Take 1 [facility] 10 mg 1-12 tablet by ity of tablet 00:00: mouth as [place] 00 needed for Medical Migraine. Branch May repeat in 2 hours if needed Butalbital- 2021-05 Yes [id number] 1{capsu Take 1 [facility] Acetaminoph 1-12 le} capsule by it y of en-Caff 00:00: mouth [place] (FIORICET) 00 every 6 Medica l 50-300-40 (six) Branch mg per hours as capsule needed for Other (headache) . rizatriptan 2021-05 Yes [id number] 10mg Take 1 [facility] 10 mg 1-12 tablet by ity of tablet 00:00: mouth as [place] 00 needed for Medical Migraine. Branch May repeat in 2 hours if needed Butalbital- 2021-05 Yes [id number] 1{capsu Take 1 [facility] Acetaminoph 1-12 le} capsule by it y of en-Caff 00:00: mouth [place] (FIORICET) 00 every 6 Medica l 50-300-40 (six) Branch mg per hours as capsule needed for Other (headache) . rizatriptan 2021-05 Yes [id number] 10mg Take 1 [facility] 10 mg 1-12 tablet by ity of tablet 00:00: mouth as [place] 00 needed for Medical Migraine. Branch May repeat in 2 hours if needed Butalbital- 2021-05 Yes [id number] 1{capsu Take 1 [facility] Acetaminoph 1-12 le} capsule by it y of en-Caff 00:00: mouth [place] (FIORICET) 00 every 6 Medica l 50-300-40 (six) Branch mg per hours as capsule needed for Other (headache) . rizatriptan 2021-05 Yes [id number] 10mg Take 1 [facility] 10 mg 1-12 tablet by ity of tablet 00:00: mouth as [place] 00 needed for Medical Migraine. Branch May repeat in 2 hours if needed Butalbital- 2021-05 Yes [id number] 1{capsu Take 1 [facility] Acetaminoph 1-12 le} capsule by it y of en-Caff 00:00: mouth [place] (FIORICET) 00 every 6 Medica l 50-300-40 (six) Branch mg per hours as capsule needed for Other (headache) . rizatriptan 2021-05 Yes [id number] 10mg Take 1 [facility] 10 mg 1-12 tablet by ity of tablet 00:00: mouth as [place] 00 needed for Medical Migraine. Branch May repeat in 2 hours if needed Butalbital- 2021-05 Yes [id number] 1{capsu Take 1 [facility] Acetaminoph 1-12 le} capsule by it y of en-Caff 00:00: mouth [place] (FIORICET) 00 every 6 Medica l 50-300-40 (six) Branch mg per hours as capsule needed for Other (headache) . rizatriptan 2021-05 Yes [id number] 10mg Take 1 [facility] 10 mg 1-12 tablet by ity of tablet 00:00: mouth as [place] 00 needed for Medical Migraine. Branch May repeat in 2 hours if needed Butalbital- 2021-05 Yes [id number] 1{capsu Take 1 [facility] Acetaminoph 1-12 le} [...] 50 mcg dose, On Branch [facility] 03/15/22 at 1030, Routine proMETHazin 2021-05 No 25mg 25 mg, Uni vers e 05-15 Oral, ity of (PHENERGAN) 14:45: 14:55 ONCE, 1 [place] 25 00 :00 dose, On Medica l mg [facility] 03/15/22 at 0945, [place] FENTanyl PF 2021-05 No 50ug 50 mcg, Un sushant (SUBLIMAZE 05-15 Slow IV ity o f (PF)) 14:45: 13:58 Push, [place] injection 00 :00 ONCE, 1 Medical 50 mcg dose, On Branch [facility] 03/15/22 at 0945, Routine ondansetron 2021-05- No 4mg 4 mg, Slow Univers (ZOFRAN 05-15 IV [place], ity of (PF)) 14:00: 13:58 ONCE, 1 [place] injection 4 00 :00 dose, On Medi yessi mg [facility] 03/15/22 at 0900, [place] ondansetron 2021-05 Yes [id number] 4mg Take 1 [facility] 4 mg -03 tablet by ity of disintegrat 00:00: mouth [place] ing tablet 00 every 8 Medica l (eight) Branch hours as needed for Nausea and Vomiting (N/V). ketorolac 2021-05 Yes [id number] 10mg Take 1 U nivers 10 mg 1-03 tablet by ity of tablet 00:00: mouth [place] 00 every 6 Medical (six) Branch hours as needed for Pain (scale 7-10). proMETHazin 2021-05 Yes [id number] 25mg Take 1 Univers e 25 mg 1-03 tablet by ity of tablet 00:00: mouth [place] 00 every 6 Medical (six) Branch hours as needed for N/V unresponsi ve to Ondansetro n. ondansetron 2021-05 Yes [id number] 4mg Take 1 [facility] 4 mg 1-03 tablet by ity of disintegrat 00:00: mouth [place] ing tablet 00 every 8 Medica l (eight) Branch hours as needed for Nausea and Vomiting (N/V). ketorolac 2021-05 Yes [id number] 10mg Take 1 U nivers 10 mg 1-03 tablet by ity of tablet 00:00: mouth [place] 00 every 6 Medical (six) Branch hours as needed for Pain (scale 7-10). proMETHazin 2021-05 Yes [id number] 25mg Take 1 [facility] e 25 mg 1-03 tablet by ity of tablet 00:00: mouth [place] 00 every 6 Medical (six) Branch hours as needed for N/V unresponsi ve to Ondansetro n. carvediloL 2021-05 Yes [id number] 25mg Take 1 U nivers 25 mg 1-03 tablet by ity of tablet 00:00: mouth in [place] 00 the Medical morning Branch and 1 tablet in the evening. Take with meals. ondansetron 2021-05 Yes [id number] 4mg Take 1 [facility] 4 mg 1-03 tablet by ity of disintegrat 00:00: mouth [place] ing tablet 00 every 8 Medica l (eight) Branch hours as needed for Nausea and Vomiting (N/V). ketorolac 2021-05 Yes [id number] 10mg Take 1 U nivers 10 mg 1-03 tablet by ity of tablet 00:00: mouth [place] 00 every 6 Medical (six) Branch hours as needed for Pain (scale 7-10). proMETHazin 2021-05 Yes [id number] 25mg Take 1 Univers e 25 mg 1-03 tablet by ity of tablet 00:00: mouth [place] 00 every 6 Medical (six) Branch hours as needed for N/V unresponsi ve to Ondansetro n. carvediloL 2021-05 Yes [id number] 25mg Take 1 U nivers 25 mg 1-03 tablet by ity of tablet 00:00: mouth in [place] 00 the Medical morning Branch and 1 tablet in the evening. Take with meals. ondansetron 2021-05 Yes [id number] 4mg Take 1 [facility] 4 mg 1-03 tablet by ity of disintegrat 00:00: mouth [place] ing tablet 00 every 8 Medica l (eight) Branch hours as needed for Nausea and Vomiting (N/V). ketorolac 2021-05 Yes [id number] 10mg Take 1 U nivers 10 mg 1-03 tablet by ity of tablet 00:00: mouth [place] 00 every 6 Medical (six) Branch hours as needed for Pain (scale 7-10). proMETHazin 2021-05 Yes [id number] 25mg Take 1 Univers e 25 mg 1-03 tablet by ity of tablet 00:00: mouth [place] 00 every 6 Medical (six) Branch hours as needed for N/V unresponsi ve to Ondansetro n. carvediloL 2021-05 Yes [id number] 25mg Take 1 U nivers 25 mg 1-03 tablet by ity of tablet 00:00: mouth in [place] 00 the Medical morning Branch and 1 tablet in the evening. Take with meals. ondansetron 2021-05 Yes [id number] 4mg Take 1 [facility] 4 mg 1-03 tablet by ity of disintegrat 00:00: mouth [place] ing tablet 00 every 8 Medica l (eight) Branch hours as needed for Nausea and Vomiting (N/V). ketorolac 2021-05 Yes [id number] 10mg Take 1 U nivers 10 mg 1-03 tablet by ity of tablet 00:00: mouth [place] 00 every 6 Medical (six) Branch hours as needed for Pain (scale 7-10). proMETHazin 2021-05 Yes [id number] 25mg Take 1 Univers e 25 mg 1-03 tablet by ity of tablet 00:00: mouth [place] 00 every 6 Medical (six) Branch hours as needed for N/V unresponsi ve to Ondansetro n. carvediloL 2021-05 Yes [id number] 25mg Take 1 U nivers 25 mg 1-03 tablet by ity of tablet 00:00: mouth in [place] 00 the Medical morning Branch and 1 tablet in the evening. Take with meals. ondansetron 2021-05 Yes [id number] 4mg Take 1 [facility] 4 mg 1-03 tablet by ity of disintegrat 00:00: mouth [place] ing tablet 00 every 8 Medica l (eight) Branch hours as needed for Nausea and Vomiting (N/V). ketorolac 2021-05 Yes [id number] 10mg Take 1 U nivers 10 mg 1-03 tablet by ity of tablet 00:00: mouth [place] 00 every 6 Medical (six) Branch hours as needed for Pain (scale 7-10). proMETHazin 2021-05 Yes [id number] 25mg Take 1 Univers e 25 mg 1-03 tablet by ity of tablet 00:00: mouth [place] 00 every 6 Medical (six) Branch hours as needed for N/V unresponsi ve to Ondansetro n. carvediloL 2021-05 Yes [id number] 25mg Take 1 U nivers 25 mg 1-03 tablet by ity of tablet 00:00: mouth in [place] 00 the Medical morning Branch and 1 tablet in the evening. Take with meals. ondansetron 2021-05 Yes [id number] 4mg Take 1 [facility] 4 mg 1-03 tablet by ity of disintegrat 00:00: mouth [place] ing tablet 00 every 8 Medica l (eight) Branch hours as needed for Nausea and Vomiting (N/V). ketorolac 2021-05 Yes [id number] 10mg Take 1 U nivers 10 mg 1-03 tablet by ity of tablet 00:00: mouth [place] 00 every 6 Medical (six) Branch hours as needed for Pain (scale 7-10). proMETHazin 2021-05 Yes [id number] 25mg Take 1 Univers e 25 mg 1-03 tablet by ity of tablet 00:00: mouth [place] 00 every 6 Medical (six) Branch hours as needed for N/V unresponsi ve to Ondansetro n. carvediloL 2021-05 Yes [id number] 25mg Take 1 U nivers 25 mg 1-03 tablet by ity of tablet 00:00: mouth in [place] 00 the Medical morning Branch and 1 tablet in the evening. Take with meals. ondansetron 2021-05 Yes [id number] 4mg Take 1 [facility] 4 mg 1-03 tablet by ity of disintegrat 00:00: mouth [place] ing tablet 00 every 8 Medica l (eight) Branch hours as needed for Nausea and Vomiting (N/V). ketorolac 2021-05 Yes [id number] 10mg Take 1 U nivers 10 mg 1-03 tablet by ity of tablet 00:00: mouth [place] 00 every 6 Medical (six) Branch hours as needed for Pain (scale 7-10). proMETHazin 2021-05 Yes [id number] 25mg Take 1 Univers e 25 mg 1-03 tablet by ity of tablet 00:00: mouth [place] 00 every 6 Medical (six) Branch hours as needed for N/V unresponsi ve to Ondansetro n. carvediloL 2021-05 Yes [id number] 25mg Take 1 U nivers 25 mg 1-03 tablet by ity of tablet 00:00: mouth in [place] 00 the Medical morning Branch and 1 tablet in the evening. Take with meals. ondansetron 2021-05 Yes [id number] 4mg Take 1 [facility] 4 mg 1-03 tablet by ity of disintegrat 00:00: mouth [place] ing tablet 00 every 8 Medica l (eight) Branch hours as needed for Nausea and Vomiting (N/V). ketorolac 2021-05 Yes [id number] 10mg Take 1 U nivers 10 mg 1-03 tablet by ity of tablet 00:00: mouth [place] 00 every 6 Medical (six) Branch hours as needed for Pain (scale 7-10). proMETHazin 2021-05 Yes [id number] 25mg Take 1 Univers e 25 mg 1-03 tablet by ity of tablet 00:00: mouth [place] 00 every 6 Medical (six) Branch hours as needed for N/V unresponsi ve to Ondansetro n. carvediloL 2021-05 Yes [id number] 25mg Take 1 U nivers 25 mg 1-03 tablet by ity of tablet 00:00: mouth in [place] 00 the Medical morning Branch and 1 tablet in the evening. Take with meals. ondansetron 2021-05 Yes [id number] 4mg Take 1 [facility] 4 mg 1-03 tablet by ity of disintegrat 00:00: mouth [place] ing tablet 00 every 8 Medica l (eight) Branch hours as needed for Nausea and Vomiting (N/V). ketorolac 2021-05 Yes [id number] 10mg Take 1 U nivers 10 mg 1-03 tablet by ity of tablet 00:00: mouth [place] 00 every 6 Medical (six) Branch hours as needed for Pain (scale 7-10). proMETHazin 2021-05 Yes [id number] 25mg Take 1 Univers e 25 mg 1-03 tablet by ity of tablet 00:00: mouth [place] 00 every 6 Medical (six) Branch hours as needed for N/V unresponsi ve to Ondansetro n. carvediloL 2021-05 Yes [id number] 25mg Take 1 U nivers 25 mg 1-03 tablet by ity of tablet 00:00: mouth in [place] 00 the Medical morning Branch and 1 tablet in the evening. Take with meals. carvediloL 2021-05 Yes [id number] 25mg Take 1 U nivers 25 mg 1-03 tablet by ity of tablet 00:00: mouth in [place] 00 the Medical morning Branch and 1 tablet in the evening. Take with meals. carvediloL 2021-05 Yes [id number] 25mg Take 1 U nivers 25 mg 1-03 tablet by ity of tablet 00:00: mouth in [place] 00 the Medical morning Branch and 1 tablet in the evening. Take with meals. carvediloL 2021-05 Yes [id number] 25mg Take 1 U nivers 25 mg 1-03 tablet by ity of tablet 00:00: mouth in [place] 00 the Medical morning Branch and 1 tablet in the evening. Take with meals. carvediloL 2021-05 Yes [id number] 25mg Take 1 U nivers 25 mg 1-03 tablet by ity of tablet 00:00: mouth in [place] 00 the Medical morning Branch and 1 tablet in the evening. Take with meals. carvediloL 2021-05 Yes [id number] 25mg Take 1 U nivers 25 mg 1-03 tablet by ity of tablet 00:00: mouth in [place] 00 the Medical morning Branch and 1 tablet in the evening. Take with meals. carvediloL 2021-05 Yes [id number] 25mg Take 1 U nivers 25 mg 1-03 tablet by ity of tablet 00:00: mouth in [place] 00 the Medical morning Branch and 1 tablet in the evening. Take with meals. carvediloL 2021-05 Yes [id number] 25mg Take 1 U nivers 25 mg 1-03 tablet by ity of tablet 00:00: mouth in [place] 00 the Medical morning [place] and 1 tablet in the evening. Take with meals. carvediloL 2021-05 Yes [id number] 25mg Take 1 U nivers 25 mg 1-03 tablet by ity of tablet 00:00: mouth in [place] [address] the Medical morning Branch and 1 tablet in the evening. Take with meals. carvediloL 2021-05 Yes [id number] 25mg Take 1 U nivers 25 mg 1-03 tablet by ity of tablet 00:00: mouth in [place] [address] the Medical morning Branch and 1 tablet in the evening. Take with meals. carvediloL 2021-05 Yes [id number] 25mg Take 1 U nivers 25 mg 1-03 tablet by ity of tablet 00:00: mouth in [place] [address] the Medical morning Branch and 1 tablet in the evening. Take with meals. carvediloL 2021-05 Yes [id number] 25mg Take 1 U nivers 25 mg 1-03 tablet by ity of tablet 00:00: mouth in [place] [address] the Medical morning [place] and 1 tablet in the evening. Take with meals. carvediloL 2021-05 Yes [id number] 25mg Take 1 U nivers 25 mg 1-03 tablet by ity of tablet 00:00: mouth in [place] [address] the Medical morning [place] and 1 tablet in the evening. Take with meals. carvediloL 2021-05 Yes [id number] 25mg Take 1 U nivers 25 mg 1-03 tablet by ity of tablet 00:00: mouth in [place] [address] the Medical morning [place] and 1 tablet in the evening. Take with meals. carvediloL 2021-05 Yes [id number] 25mg Take 1 U nivers 25 mg 1-03 tablet by ity of tablet 00:00: mouth in [place] [address] the Medical morning [place] and 1 tablet in the evening. Take with meals. carvediloL 2021-05 Yes [id number] 25mg Take 1 U nivers 25 mg 1-03 tablet by ity of tablet 00:00: mouth in [place] [address] the Medical morning [place] and 1 tablet in the evening. Take with meals. carvediloL 2021-05 Yes [id number] 25mg Take 1 U nivers 25 mg 1-03 tablet by ity of tablet 00:00: mouth in [place] [address] the Medical morning [place] and 1 tablet in the evening. Take with meals. carvediloL 2021-05 Yes [id number] 25mg Take 1 U nivers 25 mg 1-03 tablet by ity of tablet 00:00: mouth in [place] [address] the [facility] morning [place] and 1 tablet in the evening. Take with meals. carvediloL 2021-05 Yes [id number] 25mg Take 1 U nivers 25 mg 1-03 tablet by ity of tablet 00:00: mouth in [place] 00 the [facility] morning [place] and 1 tablet in the evening. Take with meals. carvediloL 2021-05 Yes [id number] 25mg Take 1 U nivers 25 mg 1-03 tablet by ity of tablet 00:00: mouth in [place] 00 the [facility] and 1 tablet in the evening. Take with meals. carvediloL 2021-05 Yes [id number] 25mg Take 1 U nivers 25 mg 1-03 tablet by ity of tablet 00:00: mouth in [place] 00 the [facility] and 1 tablet in the evening. Take with meals. carvediloL 2021-05 Yes [id number] 25mg Take 1 U nivers 25 mg 1-03 tablet by ity of tablet 00:00: mouth in [place] [address] the [facility] and 1 tablet in the evening. Take with meals. carvediloL 2021-05- No [id number] 25mg Take 1 Univers 25 mg 1-03 04-26 tablet by ity of tablet 00:00: 00:00 mouth in [place] 00 :00 the [facility] and 1 tablet in the evening. Take with meals. carvediloL 2021-05- No [id number] 25mg Take 1 [facility] 25 mg 1-03 04-26 tablet by ity of tablet 00:00: 00:00 mouth in [place] 00 :00 the [facility] and 1 tablet in the evening. Take with meals. ondansetron 2021-05- No [id number] 4mg Take 1 [facility] 4 mg 1-03 11-26 tablet by ity of disintegrat 00:00: 00:[place] 00 :00 every 8 Medica l (eight) Branch hours as needed for Nausea and Vomiting (N/V). ketorolac 2021-05- No [id number] 10mg Take 1 [facility] 10 mg 1-03 11-26 tablet by ity of tablet 00:00: 00:00 mouth [place] 00 :00 every 6 Medical (six) Branch hours as needed for Pain (scale 7-10). proMETHazin 2021-05- No [id number] 25mg Take 1 Univers e 25 mg 05-15 tablet by ity of tablet 00:00: 00:00 mouth [place] 00 :00 every 6 Medical (six) Branch hours as needed for N/V unresponsi ve to Ondansetro n. cephALEXin 2021-05- No [id number] 500mg Take 1 [facility] 500 mg 05-15 capsule by ity of capsule 00:00: 05:59 mouth 4 [place] 00 :00 (four) Medical times Branch daily for 3 days. cephALEXin 2021-05- No [id number] 500mg Take 1 [facility] 500 mg 05-15 capsule by ity of capsule 00:00: 05:59 mouth 4 [place] 00 :00 (four) Medical times [place] daily for 3 days. cephALEXin 2021-05- No [id number] 500mg Take 1 [facility] 500 mg 05-15 capsule by ity of capsule 00:00: 05:59 mouth 4 [place] 00 :00 (four) Medical times [place] daily for 3 days. predniSONE 2021-05- No [id number] 20mg Take 1 [facility] 20 mg 03-15 [...] [facility] 03[facility] at 1200, [place] dexamethaso 2021-05- No 10mg 10 mg, Uni vers ne sod phos 0-30 10-30 Slow IV ity of PF 16:00: 16:00 [place], [place] injection 00 :00 ONCE, 1 Medical 10 mg dose, On [facility] 03/11/22 at 1100, 1 mL diphenhydrA 2021-05- No 25mg 25 mg, Uni vers MINE 0-30 10-30 Slow IV ity of (BENADRYL) 15:46: 16:00 [place], [place] injection 00 :00 ONCE, 1 Medical 25 mg dose, On [facility] 03/11/22 at 1100, STAT NaCl 0.9% 2021-05 No 1000mL at 999 Uni vers (NS) IV 0-30 10-30 mL/hr, ity of infusion 15:45: 16:04 [place] 1,000 mL 00 :00 s, ONCE, 1 Medic al dose, On [facility] 03/11/22 at 1045, Routine [...] 00 :00 ONCE, 1 Medical dose, On [facility] 03/11/22 at 0945, [place] proMETHazin 2021-05 No 12.5mg 12.5 mg, Univers e 0-30 10-30 IV ity of (PHENERGAN) 14:45: 15:04 Piggyback, [place] 12.5 mg in 00 :00 ONCE, 1 Medica l NaCl 0.9% dose, On Branch (NS) 50 mL Sun IV 03/11/22 piggyback at 0945, [place] proMETHazin 2021-05 Yes [id number] 25mg Take 1 Univers e 25 mg 0-30 tablet by ity of tablet 00:00: mouth [place] 00 every 6 Medical (six) Branch hours as needed for Nausea and Vomiting (N/V). methocarbam 2021-05 Yes [id number] 500mg Take 1 Univers oL 500 mg 0-30 tablet by ity o f tablet 00:00: mouth 3 [place] 00 (three) Medical times Branch daily as needed for Pain (scale 7-10). proMETHazin 2021-05 Yes [id number] 25mg Take 1 Univers e 25 mg 0-30 tablet by ity of tablet 00:00: mouth [place] 00 every 6 Medical (six) Branch hours as needed for Nausea and Vomiting (N/V). methocarbam 2021-05 Yes [id number] 500mg Take 1 Univers oL 500 mg 0-30 tablet by ity o f tablet 00:00: mouth 3 [place] 00 (three) Medical times Branch daily as needed for Pain (scale 7-10). proMETHazin 2021-05 Yes [id number] 25mg Take 1 Univers e 25 mg 0-30 tablet by ity of tablet 00:00: mouth [place] 00 every 6 Medical (six) Branch hours as needed for Nausea and Vomiting (N/V). methocarbam 2021-05 Yes [id number] 500mg Take 1 Univers oL 500 mg 0-30 tablet by ity o f tablet 00:00: mouth 3 [place] 00 (three) Medical times Branch daily as needed for Pain (scale 7-10). proMETHazin 2021-05 Yes [id number] 25mg Take 1 Univers e 25 mg 0-30 tablet by ity of tablet 00:00: mouth [place] 00 every 6 Medical (six) Branch hours as needed for Nausea and Vomiting (N/V). methocarbam 2021-05 Yes [id number] 500mg Take 1 [facility] oL 500 mg 0-30 tablet by ity o f tablet 00:00: mouth 3 00 (three) Medical times Branch daily as needed for Pain (scale 7-10). proMETHazin 2021-05 Yes [id number] 25mg Take 1 Univers e 25 mg 0-30 tablet by ity of tablet 00:00: mouth [place] 00 every 6 Medical (six) Branch hours as needed for Nausea and Vomiting (N/V). methocarbam 2021-05 Yes [id number] 500mg Take 1 Univers oL 500 mg 0-30 tablet by ity o f tablet 00:00: mouth 3 [place] 00 (three) Medical times Branch daily as needed for Pain (scale 7-10). proMETHazin 2021-05 Yes [id number] 25mg Take 1 Univers e 25 mg 0-30 tablet by ity of tablet 00:00: mouth [place] 00 every 6 Medical (six) Branch hours as needed for Nausea and Vomiting (N/V). methocarbam 2021-05 Yes [id number] 500mg Take 1 Univers oL 500 mg 0-30 tablet by ity o f tablet 00:00: mouth 3 [place] 00 (three) Medical times Branch daily as needed for Pain (scale 7-10). proMETHazin 2021-05 Yes [id number] 25mg Take 1 Univers e 25 mg 0-30 tablet by ity of tablet 00:00: mouth [place] 00 every 6 Medical (six) Branch hours as needed for Nausea and Vomiting (N/V). methocarbam 2021-05 Yes [id number] 500mg Take 1 Univers oL 500 mg 0-30 tablet by ity o f tablet 00:00: mouth 3 [place] 00 (three) Medical times Branch daily as needed for Pain (scale 7-10). proMETHazin 2021-05 Yes [id number] 25mg Take 1 Univers e 25 mg 0-30 tablet by ity of tablet 00:00: mouth [place] 00 every 6 Medical (six) Branch hours as needed for Nausea and Vomiting (N/V). methocarbam 2021-05 Yes [id number] 500mg Take 1 Univers oL 500 mg 0-30 tablet by ity o f tablet 00:00: mouth 3 [place] 00 (three) Medical times Branch daily as needed for Pain (scale 7-10). proMETHazin 2021-05 Yes [id number] 25mg Take 1 Univers e 25 mg 0-30 tablet by ity of tablet 00:00: mouth [place] 00 every 6 Medical (six) Branch hours as needed for Nausea and Vomiting (N/V). methocarbam 2021-05 Yes [id number] 500mg Take 1 Univers oL 500 mg 0-30 tablet by ity o f tablet 00:00: mouth 3 [place] 00 (three) Medical times Branch daily as needed for Pain (scale 7-10). proMETHazin 2021-05 Yes [id number] 25mg Take 1 Univers e 25 mg 0-30 tablet by ity of tablet 00:00: mouth [place] 00 every 6 Medical (six) Branch hours as needed for Nausea and Vomiting (N/V). methocarbam 2021-05 Yes [id number] 500mg Take 1 Univers oL 500 mg 0-30 tablet by ity o f tablet 00:00: mouth 3 [place] 00 (three) Medical times Branch daily as needed for Pain (scale 7-10). proMETHazin 2021-05 Yes [id number] 25mg Take 1 Univers e 25 mg 0-30 tablet by ity of tablet 00:00: mouth [place] 00 every 6 Medical (six) Branch hours as needed for Nausea and Vomiting (N/V). methocarbam 2021-05 Yes [id number] 500mg Take 1 Univers oL 500 mg 0-30 tablet by ity o f tablet 00:00: mouth 3 [place] 00 (three) Medical times Branch daily as needed for Pain (scale 7-10). proMETHazin 2021-05 Yes [id number] 25mg Take 1 Univers e 25 mg 0-30 tablet by ity of tablet 00:00: mouth [place] 00 every 6 Medical (six) Branch hours as needed for Nausea and Vomiting (N/V). proMETHazin 2021-05 Yes [id number] 25mg Take 1 Univers e 25 mg 0-30 tablet by ity of tablet 00:00: mouth [place] 00 every 6 Medical (six) Branch hours as needed for Nausea and Vomiting (N/V). proMETHazin 2021-05 Yes [id number] 25mg Take 1 Univers e 25 mg 0-30 tablet by ity of tablet 00:00: mouth [place] 00 every 6 Medical (six) Branch hours as needed for Nausea and Vomiting (N/V). proMETHazin 2021-05 Yes [id number] 25mg Take 1 Univers e 25 mg 0-30 tablet by ity of tablet 00:00: mouth [place] 00 every 6 Medical (six) Branch hours as needed for Nausea and Vomiting (N/V). proMETHazin 2021-05 Yes [id number] 25mg Take 1 Univers e 25 mg 0-30 tablet by ity of tablet 00:00: mouth [place] 00 every 6 Medical (six) Branch hours as needed for Nausea and Vomiting (N/V). proMETHazin 2021-05 Yes [id number] 25mg Take 1 Univers e 25 mg 0-30 tablet by ity of tablet 00:00: mouth [place] 00 every 6 Medical (six) Branch hours as needed for Nausea and Vomiting (N/V). proMETHazin 2021-05 Yes [id number] 25mg Take 1 Univers e 25 mg 0-30 tablet by ity of tablet 00:00: mouth [place] 00 every 6 Medical (six) Branch hours as needed for Nausea and Vomiting (N/V). proMETHazin 2021-05 Yes [id number] 25mg Take 1 Univers e 25 mg 0-30 tablet by ity of tablet 00:00: mouth [place] 00 every 6 Medical (six) Branch hours as needed for Nausea and Vomiting (N/V). proMETHazin 2021-05 Yes [id number] 25mg Take 1 Univers e 25 mg 0-30 tablet by ity of tablet 00:00: mouth [place] 00 every 6 Medical (six) Branch hours as needed for Nausea and Vomiting (N/V). proMETHazin 2021-05 Yes [id number] 25mg Take 1 Univers e 25 mg 0-30 tablet by ity of tablet 00:00: mouth [place] 00 every 6 Medical (six) Branch hours as needed for Nausea and Vomiting (N/V). proMETHazin 2021-05 Yes [id number] 25mg Take 1 Univers e 25 mg 0-30 tablet by ity of tablet 00:00: mouth [place] 00 every 6 Medical (six) Branch hours as needed for Nausea and Vomiting (N/V). proMETHazin 2021-05 Yes [id number] 25mg Take 1 Univers e 25 mg 0-30 tablet by ity of tablet 00:00: mouth [place] 00 every 6 Medical (six) Branch hours as needed for Nausea and Vomiting (N/V). proMETHazin 2021-05 Yes [id number] 25mg Take 1 Univers e 25 mg 0-30 tablet by ity of tablet 00:00: mouth [place] 00 every 6 Medical (six) Branch hours as needed for Nausea and Vomiting (N/V). proMETHazin 2021-05 Yes [id number] 25mg Take 1 Univers e 25 mg 0-30 tablet by ity of tablet 00:00: mouth [place] 00 every 6 Medical (six) Branch hours as needed for Nausea and Vomiting (N/V). proMETHazin 2021-05 Yes [id number] 25mg Take 1 Univers e 25 mg 0-30 tablet by ity of tablet 00:00: mouth [place] 00 every 6 Medical (six) Branch hours as needed for Nausea and Vomiting (N/V). proMETHazin 2021-05 Yes [id number] 25mg Take 1 [facility] e 25 mg 0-30 tablet by ity of tablet 00:00: mouth [place] 00 every 6 Medical (six) Branch hours as needed for Nausea and Vomiting (N/V). proMETHazin 2021-05 Yes [id number] 25mg Take 1 [facility] e 25 mg 0-30 tablet by ity of tablet 00:00: mouth [place] 00 every 6 Medical (six) Branch hours as needed for Nausea and Vomiting (N/V). proMETHazin 2021-05- No [id number] 25mg Take 1 [facility] e 25 mg 0-30 03-21 tablet by ity of tablet 00:00: 00:00 mouth [place] 00 :00 every 6 Medical (six) Branch hours as needed for Nausea and Vomiting (N/V). methocarbam 2021-05- No [id number] 500mg Take 1 [facility] oL 500 mg 0-30 11-26 tablet by ity of tablet 00:00: 00:00 mouth 3 [place] 00 :00 (three) Medical times Branch daily as needed for Pain (scale 7-10). topiramate 2021-05 Yes [id number] 100mg Take 4 [facility] 25 mg 0-21 tablets by ity of tablet 00:00: mouth in [place] the Medical morning. [place] topiramate 2021-05 Yes [id number] 100mg Take 4 [facility] 25 mg 0-21 tablets by ity of tablet 00:00: mouth in [place] the Medical morning. [place] topiramate 2021-05 Yes [id number] 100mg Take 4 [facility] 25 mg 0-21 tablets by ity of tablet 00:00: mouth in [place] the Medical morning. [place] topiramate 2021-05 Yes [id number] 100mg Take 4 [facility] 25 mg 0-21 tablets by ity of tablet 00:00: mouth in [place] the morning. [place] topiramate 2021-05 Yes [id number] 100mg Take 4 [facility] 25 mg 0-21 tablets by ity of tablet 00:00: mouth in [place] the Medical morning. [place] topiramate 2021-05 Yes [id number] 100mg Take 4 [facility] 25 mg 0-21 tablets by ity of tablet 00:00: mouth in [place] the Medical morning. [place] topiramate 2021-05 Yes [id number] 100mg Take 4 [facility] 25 mg 0-21 tablets by ity of tablet 00:00: mouth in [place] the morning. [place] topiramate 2021-05 Yes [id number] 100mg Take 4 [facility] 25 mg 0-21 tablets by ity of tablet 00:00: mouth in [place] the Medical morning. [place] topiramate 2021-05 Yes [id number] 100mg Take 4 [facility] 25 mg 0-21 tablets by ity of tablet 00:00: mouth in [place] 00 the Medical morning. Branch topiramate 2-1 Yes [id number] 100mg Take 4 [facility] 25 mg 0-21 tablets by ity of tablet 00:00: mouth in [place] the Medical morning. Branch topiramate 2-1 Yes [id number] 100mg Take 4 [facility] 25 mg 0-21 tablets by ity of tablet 00:00: mouth in [place] the Medical morning. Branch topiramate 2-1 Yes [id number] 100mg Take 4 [facility] 25 mg 0-21 tablets by ity of tablet 00:00: mouth in [place] the Medical morning. Branch topiramate 2-1 Yes [id number] 100mg Take 4 [facility] 25 mg 0-21 tablets by ity of tablet 00:00: mouth in [place] the Medical morning. Branch topiramate 2-1 Yes [id number] 100mg Take 4 [facility] 25 mg 0-21 tablets by ity of tablet 00:00: mouth in [place] the Medical morning. Branch topiramate 2021-1 Yes [id number] 100mg Take 4 [facility] 25 mg 0-21 tablets by ity of tablet 00:00: mouth in [place] the Medical morning. Branch topiramate 2-1 Yes [id number] 100mg Take 4 [facility] 25 mg 0-21 tablets by ity of tablet 00:00: mouth in [place] the Medical morning. Branch topiramate 2-1 Yes [id number] 100mg Take 4 [facility] 25 mg 0-21 tablets by ity of tablet 00:00: mouth in [place] the Medical morning. Branch topiramate 2-1 Yes [id number] 100mg Take 4 [facility] 25 mg 0-21 tablets by ity of tablet 00:00: mouth in [place] the Medical morning. Branch topiramate 2-1 Yes [id number] 100mg Take 4 [facility] 25 mg 0-21 tablets by ity of tablet 00:00: mouth in [place] the Medical morning. Branch topiramate 2022-1 Yes [id number] 100mg Take 4 [facility] 25 mg 0-21 tablets by ity of tablet 00:00: mouth in [place] 00 the Medical morning. Branch topiramate 2022-1 Yes [id number] 100mg Take 4 [facility] 25 mg 0-21 tablets by ity of tablet 00:00: mouth in [place] 00 the Medical morning. Branch topiramate 2022-1 Yes [id number] 100mg Take 4 [facility] 25 mg 0-21 tablets by ity of tablet 00:00: mouth in [place] the Medical morning. Branch topiramate 2021-1 Yes [id number] 100mg Take 4 [facility] 25 mg 0-21 tablets by ity of tablet 00:00: mouth in [place] the Medical morning. Branch topiramate 2021-1 Yes [id number] 100mg Take 4 [facility] 25 mg 0-21 tablets by ity of tablet 00:00: mouth in [place] the Medical morning. Branch topiramate 2021-1 Yes [id number] 100mg Take 4 [facility] 25 mg 0-21 tablets by ity of tablet 00:00: mouth in [place] the Medical morning. Branch topiramate 2021-1 Yes [id number] 100mg Take 4 [facility] 25 mg 0-21 tablets by ity of tablet 00:00: mouth in [place] the Medical morning. Branch topiramate 2021-1 Yes [id number] 100mg Take 4 [facility] 25 mg 0-21 tablets by ity of tablet 00:00: mouth in [place] the Medical morning. Branch topiramate 2021- Yes [id number] 100mg Take 4 [facility] 25 mg 0-21 tablets by ity of tablet 00:00: mouth in [place] the Medical morning. Branch topiramate 2021- Yes [id number] 100mg Take 4 [facility] 25 mg 0-21 tablets by ity of tablet 00:00: mouth in [place] the Medical morning. Branch topiramate 2021-1 Yes [id number] 100mg Take 4 [facility] 25 mg 0-21 tablets by ity of tablet 00:00: mouth in [place] the Medical morning. Branch topiramate 2-1 Yes [id number] 100mg Take 4 [facility] 25 mg 0-21 tablets by ity of tablet 00:00: mouth in [place] the Medical morning. Branch topiramate 2-1 Yes [id number] 100mg Take 4 [facility] 25 mg 0-21 tablets by ity of tablet 00:00: mouth in [place] the Medical morning. Branch topiramate 2-1 Yes [id number] 100mg Take 4 [facility] 25 mg 0-21 tablets by ity of tablet 00:00: mouth in [place] the Medical morning. Branch topiramate 2021-1 Yes [id number] 100mg Take 4 [facility] 25 mg 0-21 tablets by ity of tablet 00:00: mouth in [place] the Medical morning. Branch topiramate 2021-05 Yes [id number] 100mg Take 4 [facility] 25 mg 0-21 tablets by ity of tablet 00:00: mouth in [place] the Medical morning. Branch topiramate 2021-05 Yes [id number] 100mg Take 4 [facility] 25 mg 0-21 tablets by ity of tablet 00:00: mouth in [place] the Medical morning. Branch topiramate 2021-05 Yes [id number] 100mg Take 4 [facility] 25 mg 0-21 tablets by ity of tablet 00:00: mouth in [place] the Medical morning. Branch topiramate 2021-05 Yes [id number] 100mg Take 4 [facility] 25 mg 0-21 tablets by ity of tablet 00:00: mouth in [place] the Medical morning. Branch topiramate 2021-05 Yes [id number] 100mg Take 4 [facility] 25 mg 0-21 tablets by ity of tablet 00:00: mouth in [place] the Medical morning. Branch topiramate 2021-05 Yes [id number] 100mg Take 4 [facility] 25 mg 0-21 tablets by ity of tablet 00:00: mouth in [place] the Medical morning. Branch topiramate 2021-05 Yes [id number] 100mg Take 4 [facility] 25 mg 0-21 tablets by ity of tablet 00:00: mouth in [place] the Medical morning. Branch topiramate 2021-05 Yes [id number] 100mg Take 4 [facility] 25 mg 0-21 tablets by ity of tablet 00:00: mouth in [place] the Medical morning. Branch topiramate 2021-05 Yes [id number] 100mg Take 4 [facility] 25 mg 0-21 tablets by ity of tablet 00:00: mouth in [place] the Medical morning. Branch topiramate 2021-05 Yes [id number] 100mg Take 4 [facility] 25 mg 0-21 tablets by ity of tablet 00:00: mouth in [place] 00 the Medical morning. Branch diphenhydrA 2021-05- [...] 28 :00 Medical Branch albuterol 2021-05 Yes [id number] 2{puff} Inhale 2 [facility] 90 0-18 Puffs ity of mcg/actuati 00:00: every 6 [place] on inhaler 00 (six) Medical hours as Branch needed for Wheezing or Shortness of Breath. albuterol 2021-05 Yes [id number] 2{puff} Inhale 2 [facility] 90 0-18 Puffs ity of mcg/actuati 00:00: every 6 [place] on inhaler 00 (six) Medical hours as Branch needed for Wheezing or Shortness of Breath. albuterol 2021-05 Yes [id number] 2{puff} Inhale 2 [facility] 90 0-18 Puffs ity of mcg/actuati 00:00: every 6 [place] on inhaler 00 (six) Medical hours as Branch needed for Wheezing or Shortness of Breath. albuterol 2021-05 Yes [id number] 2{puff} Inhale 2 [facility] 90 0-18 Puffs ity of mcg/actuati 00:00: every 6 [place] on inhaler 00 (six) Medical hours as Branch needed for Wheezing or Shortness of Breath. albuterol 2021-05 Yes [id number] 2{puff} Inhale 2 [facility] 90 0-18 Puffs ity of mcg/actuati 00:00: every 6 [place] on inhaler 00 (six) Medical hours as Branch needed for Wheezing or Shortness of Breath. albuterol 2021-05 Yes [id number] 2{puff} Inhale 2 [facility] 90 0-18 Puffs ity of mcg/actuati 00:00: every 6 [place] on inhaler 00 (six) Medical hours as Branch needed for Wheezing or Shortness of Breath. albuterol 2021-05 Yes [id number] 2{puff} Inhale 2 [facility] 90 0-18 Puffs ity of mcg/actuati 00:00: every 6 [place] on inhaler 00 (six) Medical hours as Branch needed for Wheezing or Shortness of Breath. albuterol 2021-05 Yes [id number] 2{puff} Inhale 2 [facility] 90 0-18 Puffs ity of mcg/actuati 00:00: every 6 [place] on inhaler 00 (six) Medical hours as Branch needed for Wheezing or Shortness of Breath. albuterol 2021-05 Yes [id number] 2{puff} Inhale 2 [facility] 90 0-18 Puffs ity of mcg/actuati 00:00: every 6 [place] on inhaler 00 (six) Medical hours as Branch needed for Wheezing or Shortness of Breath. albuterol 2021-05 Yes [id number] 2{puff} Inhale 2 [facility] 90 0-18 Puffs ity of mcg/actuati 00:00: every 6 [place] on inhaler 00 (six) Medical hours as Branch needed for Wheezing or Shortness of Breath. albuterol 2021-05 Yes [id number] 2{puff} Inhale 2 [facility] 90 0-18 Puffs ity of mcg/actuati 00:00: every 6 [place] on inhaler 00 (six) Medical hours as Branch needed for Wheezing or Shortness of Breath. albuterol 2021-05 Yes [id number] 2{puff} Inhale 2 [facility] 90 0-18 Puffs ity of mcg/actuati 00:00: every 6 [place] on inhaler 00 (six) Medical hours as Branch needed for Wheezing or Shortness of Breath. albuterol 2021-05 Yes [id number] 2{puff} Inhale 2 [facility] 90 0-18 Puffs ity of mcg/actuati 00:00: every 6 [place] on inhaler 00 (six) Medical hours as Branch needed for Wheezing or Shortness of Breath. albuterol 2021-05 Yes [id number] 2{puff} Inhale 2 [facility] 90 0-18 Puffs ity of mcg/actuati 00:00: every 6 [place] on inhaler 00 (six) Medical hours as Branch needed for Wheezing or Shortness of Breath. albuterol 2021-05 Yes [id number] 2{puff} Inhale 2 [facility] 90 0-18 Puffs ity of mcg/actuati 00:00: every 6 [place] on inhaler 00 (six) Medical hours as Branch needed for Wheezing or Shortness of Breath. albuterol 2021-05 Yes [id number] 2{puff} Inhale 2 [facility] 90 0-18 Puffs ity of mcg/actuati 00:00: every 6 [place] on inhaler 00 (six) Medical hours as Branch needed for Wheezing or Shortness of Breath. albuterol 2021-05 Yes [id number] 2{puff} Inhale 2 [facility] 90 0-18 Puffs ity of mcg/actuati 00:00: every 6 [place] on inhaler 00 (six) Medical hours as Branch needed for Wheezing or Shortness of Breath. albuterol 2021-05 Yes [id number] 2{puff} Inhale 2 [facility] 90 0-18 Puffs ity of mcg/actuati 00:00: every 6 [place] on inhaler 00 (six) Medical hours as Branch needed for Wheezing or Shortness of Breath. albuterol 2021-05 Yes [id number] 2{puff} Inhale 2 [facility] 90 0-18 Puffs ity of mcg/actuati 00:00: every 6 [place] on inhaler 00 (six) Medical hours as Branch needed for Wheezing or Shortness of Breath. albuterol 2021-05 Yes [id number] 2{puff} Inhale 2 [facility] 90 0-18 Puffs ity of mcg/actuati 00:00: every 6 [place] on inhaler 00 (six) Medical hours as Branch needed for Wheezing or Shortness of Breath. albuterol 2021-05 Yes [id number] 2{puff} Inhale 2 [facility] 90 0-18 Puffs ity of mcg/actuati 00:00: every 6 [place] on inhaler 00 (six) Medical hours as Branch needed for Wheezing or Shortness of Breath. albuterol 2021-05 Yes [id number] 2{puff} Inhale 2 [facility] 90 0-18 Puffs ity of mcg/actuati 00:00: every 6 [place] on inhaler 00 (six) Medical hours as Branch needed for Wheezing or Shortness of Breath. albuterol 2021-05 Yes [id number] 2{puff} Inhale 2 [facility] 90 0-18 Puffs ity of mcg/actuati 00:00: every 6 [place] on inhaler 00 (six) Medical hours as Branch needed for Wheezing or Shortness of Breath. albuterol 2021-05 Yes [id number] 2{puff} Inhale 2 [facility] 90 0-18 Puffs ity of mcg/actuati 00:00: every 6 [place] on inhaler 00 (six) Medical hours as Branch needed for Wheezing or Shortness of Breath. albuterol 2021-05 Yes [id number] 2{puff} Inhale 2 [facility] 90 0-18 Puffs ity of mcg/actuati 00:00: every 6 [place] on inhaler 00 (six) Medical hours as Branch needed for Wheezing or Shortness of Breath. albuterol 2021-05 Yes [id number] 2{puff} Inhale 2 [facility] 90 0-18 Puffs ity of mcg/actuati 00:00: every 6 [place] on inhaler 00 (six) Medical hours as Branch needed for Wheezing or Shortness of Breath. albuterol 2021-05 Yes [id number] 2{puff} Inhale 2 [facility] 90 0-18 Puffs ity of mcg/actuati 00:00: every 6 [place] on inhaler 00 (six) Medical hours as Branch needed for Wheezing or Shortness of Breath. albuterol 2021-05 Yes [id number] 2{puff} Inhale 2 [facility] 90 0-18 Puffs ity of mcg/actuati 00:00: every 6 [place] on inhaler 00 (six) Medical hours as Branch needed for Wheezing or Shortness of Breath. albuterol 2021-05 Yes [id number] 2{puff} Inhale 2 [facility] 90 0-18 Puffs ity of mcg/actuati 00:00: every 6 [place] on inhaler 00 (six) Medical hours as Branch needed for Wheezing or Shortness of Breath. albuterol 2021-05 Yes [id number] 2{puff} Inhale 2 [facility] 90 0-18 Puffs ity of mcg/actuati 00:00: every 6 [place] on inhaler 00 (six) Medical hours as Branch needed for Wheezing or Shortness of Breath. albuterol 2021-05 Yes [id number] 2{puff} Inhale 2 [facility] 90 0-18 Puffs ity of mcg/actuati 00:00: every 6 [place] on inhaler 00 (six) Medical hours as Branch needed for Wheezing or Shortness of Breath. albuterol 2021-05 Yes [id number] 2{puff} Inhale 2 [facility] 90 0-18 Puffs ity of mcg/actuati 00:00: every 6 [place] on inhaler 00 (six) Medical hours as Branch needed for Wheezing or Shortness of Breath. albuterol 2021-05 Yes [id number] 2{puff} Inhale 2 [facility] 90 0-18 Puffs ity of mcg/actuati 00:00: every 6 [place] on inhaler 00 (six) Medical hours as Branch needed for Wheezing or Shortness of Breath. albuterol 2021-05 Yes [id number] 2{puff} Inhale 2 [facility] 90 0-18 Puffs ity of mcg/actuati 00:00: every 6 [place] on inhaler 00 (six) Medical hours as Branch needed for Wheezing or Shortness of Breath. albuterol 2021-05 Yes [id number] 2{puff} Inhale 2 [facility] 90 0-18 Puffs ity of mcg/actuati 00:00: every 6 [place] on inhaler 00 (six) Medical hours as Branch needed for Wheezing or Shortness of Breath. albuterol 2021-05 Yes [id number] 2{puff} Inhale 2 [facility] 90 0-18 Puffs ity of mcg/actuati 00:00: every 6 [place] on inhaler 00 (six) Medical hours as Branch needed for Wheezing or Shortness of Breath. albuterol 2021-05 Yes [id number] 2{puff} Inhale 2 [facility] 90 0-18 Puffs ity of mcg/actuati 00:00: every 6 [place] on inhaler 00 (six) Medical hours as Branch needed for Wheezing or Shortness of Breath. albuterol 2021-05 Yes [id number] 2{puff} Inhale 2 [facility] 90 0-18 Puffs ity of mcg/actuati 00:00: every 6 [place] on inhaler 00 (six) Medical hours as Branch needed for Wheezing or Shortness of Breath. albuterol 2021-05 Yes [id number] 2{puff} Inhale 2 [facility] 90 0-18 Puffs ity of mcg/actuati 00:00: every 6 [place] on inhaler 00 (six) Medical hours as Branch needed for Wheezing or Shortness of Breath. albuterol 2021-05 Yes [id number] 2{puff} Inhale 2 [facility] 90 0-18 Puffs ity of mcg/actuati 00:00: every 6 [place] on inhaler 00 (six) Medical hours as Branch needed for Wheezing or Shortness of Breath. albuterol 2021-05 Yes [id number] 2{puff} Inhale 2 [facility] 90 0-18 Puffs ity of mcg/actuati 00:00: every 6 [place] on inhaler 00 (six) Medical hours as Branch needed for Wheezing or Shortness of Breath. albuterol 2021-05 Yes [id number] 2{puff} Inhale 2 [facility] 90 0-18 Puffs ity of mcg/actuati 00:00: every 6 [place] on inhaler 00 (six) Medical hours as Branch needed for Wheezing or Shortness of Breath. albuterol 2021-05 Yes [id number] 2{puff} Inhale 2 [facility] 90 0-18 Puffs ity of mcg/actuati 00:00: every 6 [place] on inhaler 00 (six) Medical hours as Branch needed for Wheezing or Shortness of Breath. albuterol 2021-05 Yes [id number] 2{puff} Inhale 2 [facility] 90 0-18 Puffs ity of mcg/actuati 00:00: every 6 [place] on inhaler 00 (six) Medical hours as Branch needed for Wheezing or Shortness of Breath. albuterol 2021-05 Yes [id number] 2{puff} Inhale 2 [facility] 90 0-18 Puffs ity of mcg/actuati 00:00: every 6 [place] on inhaler 00 (six) Medical hours as Branch needed for Wheezing or Shortness of Breath. albuterol 2021-05 Yes [id number] 2{puff} Inhale 2 [facility] 90 0-18 Puffs ity of mcg/actuati 00:00: every 6 [place] on inhaler 00 (six) Medical hours as Branch needed for Wheezing or Shortness of Breath. albuterol 2021-05 Yes [id number] 2{puff} Inhale 2 [facility] 90 0-18 Puffs ity of mcg/actuati 00:00: every 6 [place] on inhaler 00 (six) Medical hours as Branch needed for Wheezing or Shortness of Breath. albuterol 2021-05 Yes [id number] 2{puff} Inhale 2 [facility] 90 0-18 Puffs ity of mcg/actuati 00:00: every 6 [place] on inhaler 00 (six) Medical hours as Branch needed for Wheezing or Shortness of Breath. albuterol 2021-05 Yes [id number] 2{puff} Inhale 2 [facility] 90 0-18 Puffs [...] a 24 hour period. benzonatate 2021-05- No [id number] 200mg Take 1 [facility] 200 mg 0-18 10-26 capsule by ity of capsule 00:00: 04:59 mouth 3 [place] 00 :00 (three) Medical times Branch daily as needed for Cough for up to 7 days. benzonatate 2021-05- No [id number] 200mg Take 1 [facility] 200 mg 0-18 10-26 capsule by ity of capsule 00:00: 04:59 mouth 3 [place] 00 :00 (three) Medical times Branch daily as needed for Cough for up to 7 days. benzonatate 2021-05- No [id number] 200mg Take 1 [facility] 200 mg 0-18 10-26 capsule by ity of capsule 00:00: 04:59 mouth 3 [place] 00 :00 (three) Medical times Branch daily as needed for Cough for up to 7 days. benzonatate 2021-05- No [id number] 200mg Take 1 [facility] 200 mg 0-18 10-26 capsule by ity of capsule 00:00: 04:59 mouth 3 [place] 00 :00 (three) Medical times Branch daily as needed for Cough for up to 7 days. benzonatate 2021-05- No [id number] 200mg Take 1 [facility] 200 mg 0-18 10-26 capsule by ity of capsule 00:00: 04:59 mouth 3 [place] 00 :00 (three) Medical times Branch daily as needed for Cough for up to 7 days. benzonatate 2021-05- No [id number] 200mg Take 1 [facility] 200 mg 0-18 10-26 capsule by ity of capsule 00:00: 04:59 mouth 3 [place] 00 :00 (three) Medical times [place] daily as needed for Cough for up to 7 days. SUMAtriptan 2021-05 No [id number] 50mg Take 1 [facility] 50 mg 002-28 tablet by ity of tablet 00:00: 04:59 mouth [place] 00 :[place] now for 1 Medical dose. [place] SUMAtriptan 2021-05 No [id number] 50mg Take 1 [facility] 50 mg [id number] tablet by ity of tablet 00:00: 04:59 mouth [place] 00 :[place] now for 1 Medical dose. [place] butalbital- 2021-05- No 1{tbl} 1 tablet, Univers acetaminoph 0-12 10-12 Oral, ity of en-caff 08:15: 08:09 ONCE, 1 [place] (ESGIC) 00 :00 dose, On Medical 50-325-40 [facility] Branch mg tablet 1 02/21/22 tablet at 0315, [place] butorphanol 2021-05 No 1mg 1 mg, IV U nivers (STADOL) 012 -12 [place], ity of injection 1 08:15: 07:28 ONCE, 1 [place] mg 00 :00 dose, On Medical [facility] 02/21/22 at 0315, Routine NaCl 0.9% 2021-05 No 1000mL at 999 Uni vers (NS) bolus 0-12 10-12 mL/hr, ity of infusion 07:15: 08:40 1,000 mL, [place] 1,000 mL 00 :00 IV Medical Infusion, [place] ONCE, 1 dose, On Sat02/21/22 at 0215, [place] proMETHazin 2021-05 No 12.5mg 12.5 mg, Univers e 0-12 10-12 IV ity of (PHENERGAN) 06:30: 06:38 Piggyback, [place] 12.5 mg in 00 :00 ONCE, 1 Medica l NaCl 0.9% dose, On [place] (NS) 50 mL [facility] IV 02/21/22 piggyback at 0130, [place] dexamethaso 2021-05 No 10mg 10 mg, Uni vers ne sod phos 002-21 Slow IV ity of PF 06:30: 06:38 [place], [place] injection 00 :00 ONCE, 1 Medical 10 [...] IV ity of (BENADRYL) 06:30: 06:38 [place], [place] injection 00 :00 ONCE, 1 Medical 25 mg dose, On Branch 02/21/22 at 0130, STAT FENTanyl PF 2021-05- No 50ug 50 mcg, Un sushant (SUBLIMAZE 02-18 Slow IV ity o f (PF)) 20:30: 19:44 [place], [place] injection 00 :00 ONCE, 1 Medical 50 mcg dose, On Branch [place] 02/18/22 at 1530, Routine ketorolac 2021-05 No 30mg 30 mg, Unive rs (TORADOL) 02-18 Slow IV ity of injection 20:15: 20:09 Push, [place] 30 mg 00 :00 ONCE, 1 Medical dose, On Branch [place] 02/18/22 at 1515, [place] iopamidol 2021-05 No [id number] 60mL 60 mL, Un sushant (ISOVUE 02-18 [...] 1 Medical 50 mcg dose, On Branch [place] 02/18/22 at 1300, Routine ondansetron 2021-05- No [...] [place] mg 00 :[place] dose, On [facility] 01/18/22 Branch at 1015, STAT ondansetron 2021- No 4mg 4 mg, Slow Univers (ZOFRAN 01-18 IV Push, ity of (PF)) 13:30: 13:33 ONCE, 1 [place] injection 4 00 :00 dose, On Medi yessi mg [facility] 01/18/22 Branch at 0830, [place] morpHINE (4 2021-2021- No 4mg 4 mg, Slow [facility] mg/mL) 01-18 IV Push, ity of injection 4 13:30: 13:34 ONCE, 1 [place] mg 00 :00 dose, On [facility] 01/18/22 Branch at 0830, STAT morpHINE (4 2021- No 4mg 4 mg, Slow [facility] mg/mL) 01-18 IV [place], ity of injection 4 12:30: 11:39 ONCE, 1 [place] mg 00 :00 dose, On [facility] 01/18/22 Branch at 0730, STAT famotidine 2021-2021- No 20mg 20 mg, Univ ers (PEPCID 01-18 Slow IV ity of (PF)) 11:30: 10:52 Push, [place] injection 00 :00 ONCE, 1 Medical 20 mg dose, On [facility] 01/18/22 at 0630, [place] ondansetron 2021- No 4mg 4 mg, Slow [facility] (ZOFRAN 01-18 IV Push, ity of (PF)) 11:30: 10:52 ONCE, 1 [place] injection 4 00 :00 dose, On Medi yessi mg [place] 01/18/22 Branch at 0630, [place] iodixanoL 0 2021- No [id number] 80mL 80 mL, U nivers (VISIPAQUE 01-18 [...] Indication s: acute pain ondansetron 2021-0 Yes [id number] 4mg Take 1 Univers 4 mg 01-18 [id number] tablet by ity of disintegrat 00:00: mouth [place] ing tablet 00 every 8 Medica l (eight) Branch hours as needed for Nausea and Vomiting (N/V). ibuprofen 2021-0 Yes [id number] 600mg Take 1 [facility] 600 mg 01-18 [id number] tablet by ity of tablet 00:00: mouth [place] 00 every 6 Medical (six) Branch hours as needed for Pain (scale 4-6). traMADoL 50 2022-0 Yes [id number] 50mg Take 1 Univ ers mg tablet 9-08 tablet by ity o f 00:00: mouth [place] 00 every 6 Medical (six) Branch hours as needed for Pain (scale 7-10). Indication s: acute pain ondansetron 2022-0 Yes [id number] 4mg Take 1 Univers 4 mg 9-08 [id number] tablet by ity of disintegrat 00:00: mouth [place] ing tablet 00 every 8 Medica l (eight) Branch hours as needed for Nausea and Vomiting (N/V). ibuprofen 2022-0 Yes [id number] 600mg Take 1 [facility] 600 mg 9-08 [id number] tablet by ity of tablet 00:00: mouth [place] 00 every 6 Medical (six) Branch hours as needed for Pain (scale 4-6). traMADoL 50 2021-0 Yes [id number] 50mg Take 1 Univ ers mg tablet 9-08 tablet by ity o f 00:00: mouth [place] 00 every 6 Medical (six) Branch hours as needed for Pain (scale 7-10). Indication s: acute pain ondansetron 2022-0 Yes [id number] 4mg Take 1 Univers 4 mg 9-08 [id number] tablet by ity of disintegrat 00:00: mouth [place] ing tablet 00 every 8 Medica l (eight) Branch hours as needed for Nausea and Vomiting (N/V). ibuprofen 2022-0 Yes [id number] 600mg Take 1 [facility] 600 mg 9-08 [id number] tablet by ity of tablet 00:00: mouth [place] 00 every 6 Medical (six) Branch hours as needed for Pain (scale 4-6). traMADoL 50 2-0 Yes [id number] 50mg Take 1 Univ ers mg tablet 9-08 tablet by ity o f 00:00: mouth [place] 00 every 6 Medical (six) Branch hours as needed for Pain (scale 7-10). Indication s: acute pain ondansetron 2022-0 Yes [id number] 4mg Take 1 [facility] 4 mg 9-08 [id number] tablet by ity of disintegrat 00:00: mouth [place] ing tablet 00 every 8 Medica l (eight) Branch hours as needed for Nausea and Vomiting (N/V). ibuprofen 2022-0 Yes [id number] 600mg Take 1 [facility] 600 mg 9-08 [id number] tablet by ity of tablet 00:00: mouth [place] 00 every 6 Medical (six) Branch hours as needed for Pain (scale 4-6). traMADoL 50 2022-0 Yes [id number] 50mg Take 1 Univ ers mg tablet 9-08 tablet by ity o f 00:00: mouth [place] 00 every 6 Medical (six) Branch hours as needed for Pain (scale 7-10). Indication s: acute pain ondansetron 2022-0 Yes [id number] 4mg Take 1 Univers 4 mg 9-08 [id number] tablet by ity of disintegrat 00:00: mouth [place] ing tablet 00 every 8 Medica l (eight) Branch hours as needed for Nausea and Vomiting (N/V). ibuprofen 2022-0 Yes [id number] 600mg Take 1 [facility] 600 mg 9-08 [id number] tablet by ity of tablet 00:00: mouth [place] 00 every 6 Medical (six) Branch hours as needed for Pain (scale 4-6). traMADoL 50 2-0 Yes [id number] 50mg Take 1 [facility] ers mg tablet 9-08 tablet by ity o f 00:00: mouth [place] 00 every 6 Medical (six) Branch hours as needed for Pain (scale 7-10). Indication s: acute pain ondansetron 2022-0 Yes [id number] 4mg Take 1 [facility] 4 mg 9-08 [id number] tablet by ity of disintegrat 00:00: mouth [place] ing tablet 00 every 8 Medica l (eight) Branch hours as needed for Nausea and Vomiting (N/V). ibuprofen 2022-0 Yes [id number] 600mg Take 1 [facility] 600 mg 9-08 [id number] tablet by ity of tablet 00:00: mouth [place] 00 every 6 Medical (six) Branch hours as needed for Pain (scale 4-6). traMADoL 50 2022-0 Yes [id number] 50mg Take 1 [facility] ers mg tablet 9-08 tablet by ity o f 00:00: mouth [place] 00 every 6 Medical (six) Branch hours as needed for Pain (scale 7-10). Indication s: acute pain ondansetron 2022-0 Yes [id number] 4mg Take 1 [facility] 4 mg 9-08 [id number] tablet by ity of disintegrat 00:00: mouth [place] ing tablet 00 every 8 Medica l (eight) Branch hours as needed for Nausea and Vomiting (N/V). ibuprofen 2022-0 Yes [id number] 600mg Take 1 [facility] 600 mg 9- [id number] tablet by ity of tablet 00:00: mouth [place] 00 every 6 Medical (six) Branch hours as needed for Pain (scale 4-6). traMADoL 50 0 Yes [id number] 50mg Take 1 [facility] ers mg tablet 9-08 tablet by ity o f 00:00: mouth [place] 00 every 6 Medical (six) Branch hours as needed for Pain (scale 7-10). Indication s: acute pain ondansetron Yes [id number] 4mg Take 1 [facility] 4 mg 9- [id number] tablet by ity of disintegrat 00:00: mouth [place] ing tablet 00 every 8 Medica l (eight) Branch hours as needed for Nausea and Vomiting (N/V). ibuprofen Yes [id number] 600mg Take 1 [facility] 600 mg 9- [id number] tablet by ity of tablet 00:00: mouth [place] 00 every 6 Medical (six) Branch hours as needed for Pain (scale 4-6). traMADoL 50 2021- No [id number] 50mg Take 1 [facility] vers mg tablet 01-1818 tablet by ity of 00:00: 00:00 mouth [place] 00 :00 every 6 Medical (six) Branch hours as needed for Pain (scale 7-10). Indication s: acute pain ondansetron 2021- No [id number] 4mg Take 1 [facility] 4 mg -02-27 [id number] tablet by it[facility] of disintegrat 00:00: 00:00 [place] tablet 00 :00 every 8 Medica l (eight) Branch hours as needed for Nausea and Vomiting (N/V). ibuprofen 2021- No [id number] 600mg Take 1 [facility] 600 mg 9- 10-18 [id number] tablet by ity o f tablet 00:00: [...] Indication s: acute pain ondansetron 2021-2021- No [id number] 4mg Take 1 [facility] 4 mg 01-18 [id number] tablet by ity of disintegrat 00:00: 00:00 [place] tablet 00 :00 every 8 Medica l (eight) Branch hours as needed for Nausea and Vomiting (N/V). ibuprofen 2021-2021- No [id number] 600mg Take 1 [facility] 600 mg 01-18 [id number] tablet by ity o f tablet 00:00: [...] Indication s: acute pain ondansetron 2021-2021- No [id number] 4mg Take 1 [facility] 4 mg 01-18 [id number] tablet by it[facility] of disintegrat 00:00: 00:00 [place] tablet 00 :00 every 8 Medica l (eight) Branch hours as needed for Nausea and Vomiting (N/V). ibuprofen 2021- No [id number] 600mg Take 1 [facility] 600 mg 01-18 [id number] tablet by ity o f tablet 00:00: [...] Indication s: acute pain ondansetron 2021-2021- No [id number] 4mg Take 1 [facility] 4 mg 01-18 [id number] tablet by it[facility] of disintegrat 00:00: 00:00 [place] tablet 00 :00 every 8 Medica l (eight) Branch hours as needed for Nausea and Vomiting (N/V). ibuprofen 2021- No [id number] 600mg Take 1 [facility] 600 mg 01-18 [id number] tablet by ity o f tablet 00:00: 00:00 mouth [place] 00 :00 every 6 Medical (six) Branch hours as needed for Pain (scale 4-6). predniSONE 2021- No [id number] 40mg Take 2 [facility] 20 mg 01-16 tablets by ity of tablet 00:00: 04:59 mouth in [place] 00 :00 the [facility] Branch for 7 days. predniSONE 2021- No [id number] 40mg Take 2 [facility] 20 mg 01-16 tablets by ity of tablet 00:00: 04:59 mouth in [place] 00 :00 [facility] for 7 days. morpHINE (4 No 4mg 4 mg, Slow [facility] mg/mL) 01-15 IV [place], ity of injection 4 16:15: 15:28 ONCE, 1 [place] mg 00 :00 dose, On Medical [facility] 01/15/22 Branch at 1115, [place] proMETHazin No 12.5mg 12.5 mg, Univers e 01-15 IV ity of (PHENERGAN) 15:30: 15:28 [place], [place] 12.5 mg in 00 :00 ONCE, 1 Medica l NaCl 0.9% dose, On Branch (NS) 50 mL [facility] 01/15/22 IV at 1030, piggyback [place] NaCl 0.9% No 1000mL at 999 Uni vers (NS) bolus 01-15 mL/hr, ity of infusion 15:00: 15:38 1,000 mL, [place] 1,000 mL 00 :00 IV Medical Infusion, Branch ONCE, 1 dose, On [facility] 01/15/22 at 1000, [place] morpHINE (4 No 4mg 4 mg, Slow [facility] mg/mL) 01-15 IV [place], ity of injection 4 15:00: 14:37 ONCE, 1 [place] mg 00 :00 dose, On Medical [facility] 01/15/22 Branch at 1000, [place] ondansetron 2021- [...] at 0915, 1 mL proMETHazin 0 Yes [id number] 25mg Take 1 Univers e 25 mg 9-05 tablet by ity of tablet 00:00: mouth [place] 00 every 6 Medical (six) Branch hours as needed for Nausea and Vomiting (N/V). proMETHazin 2021-0 Yes [id number] 25mg Take 1 [facility] e 25 mg 9-05 tablet by ity of tablet 00:00: mouth [place] 00 every 6 Medical (six) Branch hours as needed for Nausea and Vomiting (N/V). proMETHazin 0 Yes [id number] 25mg Take 1 [facility] e 25 mg 9-05 tablet by ity of tablet 00:00: mouth [place] 00 every 6 Medical (six) Branch hours as needed for Nausea and Vomiting (N/V). proMETHazin 2021-0 Yes [id number] 25mg Take 1 [facility] e 25 mg 9-05 tablet by ity of tablet 00:00: mouth [place] 00 every 6 Medical (six) Branch hours as needed for Nausea and Vomiting (N/V). proMETHazin 2021-0 Yes [id number] 25mg Take 1 [facility] e 25 mg 9-05 tablet by ity of tablet 00:00: mouth [place] 00 every 6 Medical (six) Branch hours as needed for Nausea and Vomiting (N/V). proMETHazin 2021-0 Yes [id number] 25mg Take 1 [facility] e 25 mg 9-05 tablet by ity of tablet 00:00: mouth [place] 00 every 6 Medical (six) Branch hours as needed for Nausea and Vomiting (N/V). proMETHazin 2021-0 Yes [id number] 25mg Take 1 [facility] e 25 mg 9-05 tablet by ity of tablet 00:00: mouth [place] 00 every 6 Medical (six) Branch hours as needed for Nausea and Vomiting (N/V). proMETHazin 0 Yes [id number] 25mg Take 1 [facility] e 25 mg 9-05 tablet by ity of tablet 00:00: mouth [place] 00 every 6 Medical (six) Branch hours as needed for Nausea and Vomiting (N/V). proMETHazin 0 Yes [id number] 25mg Take 1 Univers e 25 mg 9-05 tablet by ity of tablet 00:00: mouth [place] 00 every 6 Medical (six) Branch hours as needed for Nausea and Vomiting (N/V). proMETHazin 2021- No [id number] 25mg Take 1 [facility] e 25 mg 9-05 10-18 tablet by ity of tablet 00:00: 00:00 mouth [place] 00 :00 every 6 Medical (six) Branch hours as needed for Nausea and Vomiting (N/V). proMETHazin 2021- No [id number] 25mg Take 1 Univers e 25 mg 9-05 10-18 tablet by ity of tablet 00:00: 00:00 mouth [place] 00 :00 every 6 Medical (six) Branch hours as needed for Nausea and Vomiting (N/V). proMETHazin 2021- No [id number] 25mg Take 1 Univers e 25 mg 9-05 10-18 tablet by ity of tablet 00:00: 00:00 mouth [place] 00 :00 every 6 Medical (six) Branch hours as needed for Nausea and Vomiting (N/V). proMETHazin 2021- No [id number] 25mg Take 1 Univers e 25 mg [...] IV ity of (BENADRYL) 23:45: 23:51 [place], [place] injection 00 :00 ONCE, 1 Medical 25 mg dose, On Branch 01/08/22 at 1845, STAT dexamethaso 2021- No 10mg 10 mg, Uni vers ne sod phos 01-08 Slow IV ity of PF 23:45: 23:50 [place], [place] injection 00 :00 ONCE, 1 Medical 10 mg dose, On Branch 01/08/22 at 1845, 1 mL ketorolac 2021- No 30mg 30 mg, Unive rs (TORADOL) 01-08 Slow IV ity of injection 23:45: 23:51 [place], [place] 30 mg 00 :00 ONCE, 1 Medical dose, On Branch 01/08/22 at 1845, [place] ondansetron Yes [id number] 4mg Take 1 [facility] 4 mg 8-29 tablet by ity of disintegrat 00:00: mouth [place] ing tablet 00 every 8 Medica l (eight) Branch hours as needed for Nausea and Vomiting (N/V). acetaminoph 0 Yes [id number] 650mg Take 1 [facility] en (TYLENOL 8-29 tablet by ity of ARTHRITIS 00:00: mouth [place] PAIN) 650 00 every 8 Medical mg CR (eight) Branch tablet hours as needed for Pain. ketorolac 0 Yes [id number] 10mg Take 1 U nivers 10 mg 8-29 tablet by ity of tablet 00:00: mouth [place] 00 every 6 Medical (six) Branch hours as needed for Pain (scale 4-6) or Pain (scale 7-10). metaxalone 0 Yes [id number] 800mg Take 1 [facility] (SKELAXIN) 8-29 tablet by ity of 800 mg 00:00: mouth in [place] tablet 00 the Medical morning Branch and 1 tablet at noon and 1 tablet in the evening. ondansetron 0 Yes [id number] 4mg Take 1 [facility] 4 mg 8-29 tablet by ity of disintegrat 00:00: mouth [place] ing tablet 00 every 8 Medica l (eight) Branch hours as needed for Nausea and Vomiting (N/V). acetaminoph 2022-0 Yes [id number] 650mg Take 1 Univers en (TYLENOL 8-29 tablet by ity of ARTHRITIS 00:00: mouth [place] PAIN) 650 00 every 8 Medical mg CR (eight) Branch tablet hours as needed for Pain. ketorolac 2022-0 Yes [id number] 10mg Take 1 U nivers 10 mg 8-29 tablet by ity of tablet 00:00: mouth [place] 00 every 6 Medical (six) Branch hours as needed for Pain (scale 4-6) or Pain (scale 7-10). metaxalone 2-0 Yes [id number] 800mg Take 1 [facility] (SKELAXIN) 8-29 tablet by ity of 800 mg 00:00: mouth in [place] tablet 00 the Medical morning Branch and 1 tablet at noon and 1 tablet in the evening. ondansetron 2-0 Yes [id number] 4mg Take 1 [facility] 4 mg 8-29 tablet by ity of disintegrat 00:00: mouth [place] ing tablet 00 every 8 Medica l (eight) Branch hours as needed for Nausea and Vomiting (N/V). acetaminoph 2021-0 Yes [id number] 650mg Take 1 [facility] en (TYLENOL 8-29 tablet by ity of ARTHRITIS 00:00: mouth [place] PAIN) 650 00 every 8 Medical mg CR (eight) Branch tablet hours as needed for Pain. ketorolac 2022-0 Yes [id number] 10mg Take 1 U nivers 10 mg 8-29 tablet by ity of tablet 00:00: mouth [place] 00 every 6 Medical (six) Branch hours as needed for Pain (scale 4-6) or Pain (scale 7-10). metaxalone 2022-0 Yes [id number] 800mg Take 1 [facility] (SKELAXIN) 8-29 tablet by ity of 800 mg 00:00: mouth in [place] tablet 00 the Medical morning Branch and 1 tablet at noon and 1 tablet in the evening. ondansetron 2022-0 Yes [id number] 4mg Take 1 [facility] 4 mg 8-29 tablet by ity of disintegrat 00:00: mouth [place] ing tablet 00 every 8 Medica l (eight) Branch hours as needed for Nausea and Vomiting (N/V). acetaminoph 2022-0 Yes [id number] 650mg Take 1 [facility] en (TYLENOL 8-29 tablet by ity of ARTHRITIS 00:00: mouth [place] PAIN) 650 00 every 8 Medical mg CR (eight) Branch tablet hours as needed for Pain. ketorolac 2022-0 Yes [id number] 10mg Take 1 U nivers 10 mg 8-29 tablet by ity of tablet 00:00: mouth [place] 00 every 6 Medical (six) Branch hours as needed for Pain (scale 4-6) or Pain (scale 7-10). metaxalone 2022-0 Yes [id number] 800mg Take 1 [facility] (SKELAXIN) 8-29 tablet by ity of 800 mg 00:00: mouth in [place] tablet 00 the Medical morning Branch and 1 tablet at noon and 1 tablet in the evening. ondansetron 2022-0 Yes [id number] 4mg Take 1 [facility] 4 mg 8-29 tablet by ity of disintegrat 00:00: mouth [place] ing tablet 00 every 8 Medica l (eight) Branch hours as needed for Nausea and Vomiting (N/V). acetaminoph 2022-0 Yes [id number] 650mg Take 1 [facility] en (TYLENOL 8-29 tablet by ity of ARTHRITIS 00:00: mouth [place] PAIN) 650 00 every 8 Medical mg CR (eight) Branch tablet hours as needed for Pain. ketorolac 2022-0 Yes [id number] 10mg Take 1 U nivers 10 mg 8-29 tablet by ity of tablet 00:00: mouth [place] 00 every 6 Medical (six) Branch hours as needed for Pain (scale 4-6) or Pain (scale 7-10). metaxalone 2022-0 Yes [id number] 800mg Take 1 [facility] (SKELAXIN) 8-29 tablet by ity of 800 mg 00:00: mouth in [place] tablet 00 the Medical morning Branch and 1 tablet at noon and 1 tablet in the evening. ondansetron 2022-0 Yes [id number] 4mg Take 1 [facility] 4 mg 8-29 tablet by ity of disintegrat 00:00: mouth [place] ing tablet 00 every 8 Medica l (eight) Branch hours as needed for Nausea and Vomiting (N/V). acetaminoph 2022-0 Yes [id number] 650mg Take 1 [facility] en (TYLENOL 8-29 tablet by ity of ARTHRITIS 00:00: mouth [place] PAIN) 650 00 every 8 Medical mg CR (eight) Branch tablet hours as needed for Pain. ketorolac 2022-0 Yes [id number] 10mg Take 1 U nivers 10 mg 8-29 tablet by ity of tablet 00:00: mouth [place] 00 every 6 Medical (six) Branch hours as needed for Pain (scale 4-6) or Pain (scale 7-10). metaxalone 2022-0 Yes [id number] 800mg Take 1 [facility] (SKELAXIN) 8-29 tablet by ity of 800 mg 00:00: mouth in [place] tablet 00 the Medical morning Branch and 1 tablet at noon and 1 tablet in the evening. ondansetron 2-0 Yes [id number] 4mg Take 1 [facility] 4 mg 8-29 tablet by ity of disintegrat 00:00: mouth [place] ing tablet 00 every 8 Medica l (eight) Branch hours as needed for Nausea and Vomiting (N/V). acetaminoph 2022-0 Yes [id number] 650mg Take 1 [facility] en (TYLENOL 8-29 tablet by ity of ARTHRITIS 00:00: mouth [place] PAIN) 650 00 every 8 Medical mg CR (eight) Branch tablet hours as needed for Pain. ketorolac 2022-0 Yes [id number] 10mg Take 1 U nivers 10 mg 8-29 tablet by ity of tablet 00:00: mouth [place] 00 every 6 Medical (six) Branch hours as needed for Pain (scale 4-6) or Pain (scale 7-10). metaxalone 2022-0 Yes [id number] 800mg Take 1 [facility] (SKELAXIN) 8-29 tablet by ity of 800 mg 00:00: mouth in [place] tablet 00 the Medical morning Branch and 1 tablet at noon and 1 tablet in the evening. ondansetron 2022-0 Yes [id number] 4mg Take 1 [facility] 4 mg 8-29 tablet by ity of disintegrat 00:00: mouth [place] ing tablet 00 every 8 Medica l (eight) Branch hours as needed for Nausea and Vomiting (N/V). acetaminoph 2022-0 Yes [id number] 650mg Take 1 Univers en (TYLENOL 8-29 tablet by ity of ARTHRITIS 00:00: mouth [place] PAIN) 650 00 every 8 Medical mg CR (eight) Branch tablet hours as needed for Pain. ketorolac 202-0 Yes [id number] 10mg Take 1 U nivers 10 mg 8-29 tablet by ity of tablet 00:00: mouth [place] 00 every 6 Medical (six) Branch hours as needed for Pain (scale 4-6) or Pain (scale 7-10). metaxalone 2021-0 Yes [id number] 800mg Take 1 Univers (SKELAXIN) 8-29 tablet by ity of 800 mg 00:00: mouth in [place] tablet 00 the Medical morning Branch and 1 tablet at noon and 1 tablet in the evening. ondansetron 2021-0 Yes [id number] 4mg Take 1 [facility] 4 mg 8-29 tablet by ity of disintegrat 00:00: mouth [place] ing tablet 00 every 8 Medica l (eight) Branch hours as needed for Nausea and Vomiting (N/V). acetaminoph 2021-0 Yes [id number] 650mg Take 1 [facility] en (TYLENOL 8-29 tablet by ity of ARTHRITIS 00:00: mouth [place] PAIN) 650 00 every 8 Medical mg CR (eight) Branch tablet hours as needed for Pain. ketorolac 2021-0 Yes [id number] 10mg Take 1 U nivers 10 mg 8-29 tablet by ity of tablet 00:00: mouth [place] 00 every 6 Medical (six) Branch hours as needed for Pain (scale 4-6) or Pain (scale 7-10). metaxalone 2021-0 Yes [id number] 800mg Take 1 Univers (SKELAXIN) 8-29 tablet by ity of 800 mg 00:00: mouth in [place] tablet 00 the Medical morning Branch and 1 tablet at noon and 1 tablet in the evening. ondansetron 2021-0 Yes [id number] 4mg Take 1 [facility] 4 mg 8-29 tablet by ity of disintegrat 00:00: mouth [place] ing tablet 00 every 8 Medica l (eight) Branch hours as needed for Nausea and Vomiting (N/V). acetaminoph 202-0 Yes [id number] 650mg Take 1 Univers en (TYLENOL 8-29 tablet by ity of ARTHRITIS 00:00: mouth [place] PAIN) 650 00 every 8 Medical mg CR (eight) Branch tablet hours as needed for Pain. ketorolac 2021-0 Yes [id number] 10mg Take 1 U nivers 10 mg 8-29 tablet by ity of tablet 00:00: mouth [place] 00 every 6 Medical (six) Branch hours as needed for Pain (scale 4-6) or Pain (scale 7-10). metaxalone 2021-0 Yes [id number] 800mg Take 1 Univers (SKELAXIN) 8-29 tablet by ity of 800 mg 00:00: mouth in [place] tablet 00 the Medical morning Branch and 1 tablet at noon and 1 tablet in the evening. acetaminoph 2021-0 Yes [id number] 650mg Take 1 Univers en (TYLENOL 8-29 tablet by ity of ARTHRITIS 00:00: mouth [place] PAIN) 650 00 every 8 Medical mg CR (eight) Branch tablet hours as needed for Pain. acetaminoph 2021-0 Yes [id number] 650mg Take 1 Univers en (TYLENOL 8-29 tablet by ity of ARTHRITIS 00:00: mouth [place] PAIN) 650 00 every 8 Medical mg CR (eight) Branch tablet hours as needed for Pain. acetaminoph 2021-0 Yes [id number] 650mg Take 1 Univers en (TYLENOL 8-29 tablet by ity of ARTHRITIS 00:00: mouth [place] PAIN) 650 00 every 8 Medical mg CR (eight) Branch tablet hours as needed for Pain. acetaminoph 2021-0 Yes [id number] 650mg Take 1 Univers en (TYLENOL 8-29 tablet by ity of ARTHRITIS 00:00: mouth [place] PAIN) 650 00 every 8 Medical mg CR (eight) Branch tablet hours as needed for Pain. acetaminoph 2021-0 Yes [id number] 650mg Take 1 Univers en (TYLENOL 8-29 tablet by ity of ARTHRITIS 00:00: mouth [place] PAIN) 650 00 every 8 Medical mg CR (eight) Branch tablet hours as needed for Pain. acetaminoph 2021-0 Yes [id number] 650mg Take 1 Univers en (TYLENOL 8-29 tablet by ity of ARTHRITIS 00:00: mouth [place] PAIN) 650 00 every 8 Medical mg CR (eight) Branch tablet hours as needed for Pain. acetaminoph 2021-0 Yes [id number] 650mg Take 1 Univers en (TYLENOL 8-29 tablet by ity of ARTHRITIS 00:00: mouth [place] PAIN) 650 00 every 8 Medical mg CR (eight) Branch tablet hours as needed for Pain. acetaminoph 0 Yes [id number] 650mg Take 1 Univers en (TYLENOL 8-29 tablet by ity of ARTHRITIS 00:00: mouth [place] PAIN) 650 00 every 8 Medical mg CR (eight) Branch tablet hours as needed for Pain. acetaminoph 0 Yes [id number] 650mg Take 1 Univers en (TYLENOL 8-29 tablet by ity of ARTHRITIS 00:00: mouth [place] PAIN) 650 00 every 8 Medical mg CR (eight) Branch tablet hours as needed for Pain. acetaminoph 0 Yes [id number] 650mg Take 1 [facility] en (TYLENOL 8-29 tablet by ity of ARTHRITIS 00:00: mouth [place] PAIN) 650 00 every 8 Medical mg CR (eight) Branch tablet hours as needed for Pain. acetaminoph 0 Yes [id number] 650mg Take 1 [facility] en (TYLENOL 8-29 tablet by ity of ARTHRITIS 00:00: mouth [place] PAIN) 650 00 every 8 Medical mg CR (eight) Branch tablet hours as needed for Pain. acetaminoph 0 Yes [id number] 650mg Take 1 [facility] en (TYLENOL 8-29 tablet by ity of ARTHRITIS 00:00: mouth [place] PAIN) 650 00 every 8 Medical mg CR (eight) Branch tablet hours as needed for Pain. acetaminoph 0 Yes [id number] 650mg Take 1 [facility] en (TYLENOL 8-29 tablet by ity of ARTHRITIS 00:00: mouth [place] PAIN) 650 00 every 8 Medical mg CR (eight) Branch tablet hours as needed for Pain. acetaminoph 0 Yes [id number] 650mg Take 1 [facility] en (TYLENOL 8-29 tablet by ity of ARTHRITIS 00:00: mouth [place] PAIN) 650 00 every 8 Medical mg CR (eight) Branch tablet hours as needed for Pain. acetaminoph 0 Yes [id number] 650mg Take 1 [facility] en (TYLENOL 8-29 tablet by ity of ARTHRITIS 00:00: mouth [place] PAIN) 650 00 every 8 Medical mg CR (eight) Branch tablet hours as needed for Pain. acetaminoph Yes [id number] 650mg Take 1 [facility] en (TYLENOL 8-29 tablet by ity of ARTHRITIS 00:00: mouth [place] PAIN) 650 00 every 8 Medical mg CR (eight) Branch tablet hours as needed for Pain. acetaminoph Yes [id number] 650mg Take 1 [facility] en (TYLENOL 8-29 tablet by ity of ARTHRITIS 00:00: mouth [place] PAIN) 650 00 every 8 Medical mg CR (eight) Branch tablet hours as needed for Pain. acetaminoph 2021- No [id number] 650mg Take 1 [facility] en (TYLENOL 8-29 11-26 tablet by it y of ARTHRITIS 00:00: 00:00 mouth [place] PAIN) 650 00 :00 every 8 Medical mg CR (eight) Branch tablet hours as needed for Pain. ondansetron 2021- No [id number] 4mg Take 1 [facility] 4 mg 8-29 10-18 tablet by ity of disintegrat 00:00: 00:00 [place] tablet 00 :00 every 8 Medica l (eight) Branch hours as needed for Nausea and Vomiting (N/V). ketorolac 2021- No [id number] 10mg Take 1 [facility] 10 mg 8-29 10-18 tablet by ity of tablet 00:00: 00:00 mouth [place] 00 :00 every 6 Medical (six) Branch hours as needed for Pain (scale 4-6) or Pain (scale 7-10). metaxalone 2021- No [id number] 800mg Take 1 [facility] (SKELAXIN) 8-29 10-18 tablet by ity of 800 mg 00:00: 00:00 mouth in [place] tablet 00 :00 the Medical morning Branch and 1 tablet at noon and 1 tablet in the evening. ondansetron 2021-2021- No [id number] 4mg Take 1 [facility] 4 mg 8-29 10-18 tablet by ity of disintegrat 00:00: 00:00 [place] tablet 00 :00 every 8 Medica l (eight) Branch hours as needed for Nausea and Vomiting (N/V). ketorolac 2021-0 2021- No [id number] 10mg Take 1 [facility] 10 mg 8-29 10-18 tablet by ity of tablet 00:00: 00:00 mouth [place] 00 :00 every 6 Medical (six) Branch hours as needed for Pain (scale 4-6) or Pain (scale 7-10). metaxalone 2022-0 2022- No [id number] 800mg Take 1 [facility] (SKELAXIN) 8-29 10-18 tablet by ity of 800 mg 00:00: 00:00 mouth in [place] tablet 00 :00 the Medical morning Branch and 1 tablet at noon and 1 tablet in the evening. ondansetron 2022-0 2022- No [id number] 4mg Take 1 [facility] 4 mg 8-29 10-18 tablet by ity of disintegrat 00:00: 00:00 [place] tablet 00 :00 every 8 Medica l (eight) Branch hours as needed for Nausea and Vomiting (N/V). ketorolac 2022-0 2022- No [id number] 10mg Take 1 [facility] 10 mg 8-29 10-18 tablet by ity of tablet 00:00: 00:00 mouth [place] 00 :00 every 6 Medical (six) Branch hours as needed for Pain (scale 4-6) or Pain (scale 7-10). metaxalone 2022-0 2022- No [id number] 800mg Take 1 [facility] (SKELAXIN) 8-29 10-18 tablet by ity of 800 mg 00:00: 00:00 mouth in [place] tablet 00 :00 the Medical morning Branch and 1 tablet at noon and 1 tablet in the evening. ondansetron 2022-0 2022- No [id number] 4mg Take 1 [facility] 4 mg 8-29 10-18 tablet by ity of disintegrat 00:00: 00:00 [place] tablet 00 :00 every 8 Medica l (eight) Branch hours as needed for Nausea and Vomiting (N/V). ketorolac 2022-0 2022- No [id number] 10mg Take 1 [facility] 10 mg 8-29 10-18 tablet by ity of tablet 00:00: 00:00 mouth [place] 00 :00 every 6 Medical (six) Branch hours as needed for Pain (scale 4-6) or Pain (scale 7-10). metaxalone 2022-0 2022- No [id number] 800mg Take 1 [facility] (SKELAXIN) 8-29 10-18 [...] mouth. ity of supp. no.8 15:08: 00:00 [place] (TRAZAMINE 46 :00 Medical ORAL) Branch diphenhydrA 0 Yes 25mg Take 25 mg Univers MINE 25 mg 12-12 by mouth ity o f capsule 13:03: every 6 [place] 04 (six) Medical hours as Branch needed for Allergies. carbamazepi 0 Yes Take by Uni vers ne 12-12 mouth. ity of (TEGRETOL 13:03: [place] ORAL) 04 Medical Branch citalopram 0 Yes Take by [facility] ers hydrobromid 12-12 mouth. ity of e 13:03: [place] (CITALOPRAM 04 Medical ORAL) Branch ALBUTEROL 0 Yes Univers INHALE 12-12 ity of 13:03: [place] 04 Medical Branch diphenhydrA 2021-0 Yes 25mg Take 25 mg [facility] MINE 25 mg 12-12 by mouth ity o f capsule 13:03: every 6 [place] 04 (six) Medical hours as Branch needed for Allergies. carbamazepi 2021-0 Yes Take by Uni vers ne 12-12 mouth. ity of (TEGRETOL 13:03: [place] ORAL) Medical Branch citalopram Yes Take by Univ ers hydrobromid 8-02 mouth. ity of e 13:03: [place] (CITALOPRAM 04 Medical ORAL) Branch ALBUTEROL 0 Yes Univers INHALE 802 ity of 13:03: Medical Branch diphenhydrA 0 Yes 25mg Take 25 mg [facility] MINE 25 mg 802 by mouth ity o f capsule 13:03: every 6 [place] [address] (six) Medical hours as Branch needed for Allergies. carbamazepi 0 Yes Take by Uni vers ne 8-02 mouth. ity of (TEGRETOL 13:03: [place] ORAL) Medical Branch citalopram Yes Take by Univ ers hydrobromid 8-02 mouth. ity of e 13:03: [place] (CITALOPRAM 04 Medical ORAL) Branch ALBUTEROL Yes Univers INHALE 8 ity of 13:03: [place] [address] Medical Branch diphenhydrA Yes 25mg Take 25 mg [facility] MINE 25 mg 02 by mouth ity o f capsule 13:03: every 6 [place] [address] (six) Medical hours as Branch needed for Allergies. carbamazepi 0 Yes Take by Uni vers ne 8-02 mouth. ity of (TEGRETOL 13:03: [place] ORAL) 04 Medical Branch citalopram Yes Take by Univ ers hydrobromid 8-02 mouth. ity of e 13:03: [place] (CITALOPRAM 04 Medical ORAL) Branch ALBUTEROL 0 Yes Univers INHALE 8 ity of 13:03: [place] [address] Medical Branch diphenhydrA Yes 25mg Take 25 mg [facility] MINE 25 mg 802 by mouth ity o f capsule 13:03: every 6 [place] [address] (six) Medical hours as Branch needed for Allergies. carbamazepi 0 Yes Take by Uni vers ne 8-02 mouth. ity of (TEGRETOL 13:03: [place] ORAL) 04 Medical Branch citalopram Yes Take by Univ ers hydrobromid 8-02 mouth. ity of e 13:03: [place] (CITALOPRAM 04 Medical ORAL) Branch ALBUTEROL 0 Yes Univers INHALE 8-02 ity of 13:03: [place] [address] Medical Branch diphenhydrA Yes 25mg Take 25 mg [facility] MINE 25 mg 802 by mouth ity o f capsule 13:03: every 6 [place] [address] (six) Medical hours as Branch needed for Allergies. carbamazepi Yes Take by [facility] vers ne 8-02 mouth. ity of (TEGRETOL 13:03: [place] ORAL) Medical Branch citalopram Yes Take by Univ ers hydrobromid 8-02 mouth. ity of e 13:03: [place] (CITALOPRAM 04 Medical ORAL) Branch ALBUTEROL Yes [facility] INHALE 8 ity of 13:03: [place] [address] Medical Branch diphenhydrA Yes 25mg Take 25 mg [facility] MINE 25 mg 12-12 by mouth ity o f capsule 13:03: every 6 [place] [address] (six) Medical hours as Branch needed for Allergies. carbamazepi Yes Take by [facility] vers ne 8-02 mouth. ity of (TEGRETOL 13:03: [place] ORAL) Medical Branch citalopram Yes Take by Univ ers hydrobromid 8-02 mouth. ity of e 13:03: [place] (CITALOPRAM 04 Medical ORAL) Branch ALBUTEROL Yes [facility] INHALE 12-12 ity of 13:03: [place] [address] Medical Branch diphenhydrA Yes 25mg Take 25 mg [facility] MINE 25 mg 02 by mouth ity o f capsule 13:03: every 6 [place] [address] (six) Medical hours as Branch needed for Allergies. carbamazepi 0 Yes Take by [facility] vers ne 8-02 mouth. ity of (TEGRETOL 13:03: [place] ORAL) 04 Medical Branch citalopram Yes Take by [facility] ers hydrobromid 8-02 mouth. ity of e 13:03: [place] (CITALOPRAM 04 Medical ORAL) Branch ALBUTEROL 0 Yes [facility] INHALE 8 ity of 13:03: [place] [address] Medical Branch diphenhydrA Yes 25mg Take 25 mg [facility] MINE 25 mg 802 by mouth ity o f capsule 13:03: every 6 [place] [address] (six) Medical hours as Branch needed for Allergies. carbamazepi 0 Yes Take by Uni vers ne 8-02 mouth. ity of (TEGRETOL 13:03: [place] ORAL) 04 Medical Branch citalopram Yes Take by [facility] ers hydrobromid 8-02 mouth. ity of e 13:03: [place] (CITALOPRAM 04 Medical ORAL) Branch ALBUTEROL Yes [facility] INHALE 8-02 ity of 13:03: [place] [address] Medical Branch diphenhydrA 0 Yes 25mg Take 25 mg [facility] MINE 25 mg 802 by mouth ity o f capsule 13:03: every 6 [place] [address] (six) Medical hours as Branch needed for Allergies. carbamazepi Yes Take by [facility] vers ne 8-02 mouth. ity of (TEGRETOL 13:03: [place] ORAL) Medical Branch citalopram Yes Take by [facility] ers hydrobromid 8-02 mouth. ity of e 13:03: [place] (CITALOPRAM 04 Medical ORAL) Branch ALBUTEROL Yes [facility] INHALE 8-02 ity of 13:03: [address] Branch diphenhydrA Yes 25mg Take 25 mg [facility] MINE 25 mg 802 by mouth ity o f capsule 13:03: every 6 [place] [address] (six) Medical hours as Branch needed for Allergies. carbamazepi Yes Take by [facility] vers ne 8-02 mouth. ity of (TEGRETOL 13:03: [place] ORAL) Medical Branch citalopram Yes Take by [facility] ers hydrobromid 8-02 mouth. ity of e 13:03: [place] (CITALOPRAM 04 Medical ORAL) Branch ALBUTEROL Yes [facility] INHALE 8-02 ity of 13:03: [place] [address] Medical Branch ALBUTEROL Yes [facility] INHALE 8-02 ity of 13:03: [place] [address] Medical Branch ALBUTEROL 0 Yes [facility] INHALE 8-02 ity of 13:03: [place] [address] Medical Branch ALBUTEROL 0 Yes [facility] INHALE 8-02 ity of 13:03: [address] Branch ALBUTEROL 0 Yes [facility] INHALE 8-02 ity of 13:03: [address] ALBUTEROL Yes [facility] INHALE 8-02 ity of 13:03: [address] ALBUTEROL Yes [facility] INHALE 8-02 ity of 13:03: [address] ALBUTEROL Yes [facility] INHALE 8-02 ity of 13:03: [place] [facility] ALBUTEROL Yes [facility] INHALE 8-02 ity of 13:03: [place] [facility] ALBUTEROL Yes [facility] INHALE 8-02 ity of 13:03: [address] ALBUTEROL Yes [facility] INHALE 8-02 ity of 13:03: [address] ALBUTEROL Yes [facility] INHALE 8-02 ity of 13:03: [address] ALBUTEROL Yes [facility] INHALE 8-02 ity of 13:03: [address] ALBUTEROL Yes [facility] INHALE 8-02 ity of 13:03: [address] ALBUTEROL Yes [facility] INHALE 8-02 ity of 13:03: [address] traZODone Yes [id number] 50mg Take 1 U nivers 50 mg 8-02 tablet by ity of tablet 00:00: mouth at [place] 00 bedtime. [facility] Branch SERTraline Yes [id number] 50mg Take 1 Univers (ZOLOFT) 50 8-02 tablet by ity of mg tablet 00:00: [place] 00 the Medical morning. Branch traZODone Yes [id number] 50mg Take 1 U nivers 50 mg 8-02 tablet by ity of tablet 00:00: mouth at [place] 00 bedtime. [facility] Branch SERTraline Yes [id number] 50mg Take 1 Univers (ZOLOFT) 50 8-02 tablet by ity of mg tablet 00:00: mouth [place] 00 the Medical morning. Branch traZODone Yes [id number] 50mg Take 1 U nivers 50 mg 8-02 tablet by ity of tablet 00:00: mouth at [place] 00 bedtime. [facility] Branch SERTraline 0 Yes [id number] 50mg Take 1 Univers (ZOLOFT) 50 8-02 tablet by ity of mg tablet 00:00: mouth [place] 00 the Medical morning. Branch traZODone 2021-0 Yes [id number] 50mg Take 1 U nivers 50 mg 8-02 tablet by ity of tablet 00:00: mouth at [place] 00 bedtime. Medical Branch SERTraline 2021-0 Yes 50mg Take 1 [facility] (ZOLOFT) 50 8-02 tablet by ity of mg tablet 00:00: mouth [place] 00 the Medical morning. Branch traZODone 2021-0 Yes [id number] 50mg Take 1 U nivers 50 mg 8-02 tablet by ity of tablet 00:00: mouth at [place] 00 bedtime. Medical Branch SERTraline 2021-0 Yes 50mg Take 1 [facility] (ZOLOFT) 50 8-02 tablet by ity of mg tablet 00:00: mouth [place] 00 the Medical morning. Branch traZODone 2021-0 Yes [id number] 50mg Take 1 U nivers 50 mg 8-02 tablet by ity of tablet 00:00: mouth at [place] 00 bedtime. Medical Branch SERTraline 2021-0 Yes [id number] 50mg Take 1 [facility] (ZOLOFT) 50 8-02 tablet by ity of mg tablet 00:00: mouth in [place] 00 the Medical morning. Branch traZODone 2021-0 Yes [id number] 50mg Take 1 U nivers 50 mg 8-02 tablet by ity of tablet 00:00: mouth at [place] 00 bedtime. Medical Branch SERTraline 2021-0 Yes 50mg Take 1 [facility] (ZOLOFT) 50 8-02 tablet by ity of mg tablet 00:00: mouth [place] 00 the Medical morning. Branch traZODone 2021-0 Yes [id number] 50mg Take 1 U nivers 50 mg 8-02 tablet by ity of tablet 00:00: mouth at [place] 00 bedtime. Medical Branch SERTraline 2021-0 Yes [id number] 50mg Take 1 [facility] (ZOLOFT) 50 8-02 tablet by ity of mg tablet 00:00: mouth [place] 00 the Medical morning. Branch traZODone 2021-0 Yes [id number] 50mg Take 1 U nivers 50 mg 8-02 tablet by ity of tablet 00:00: mouth at [place] 00 bedtime. Medical Branch SERTraline Yes [id number] 50mg Take 1 [facility] (ZOLOFT) 50 8-02 tablet by ity of mg tablet 00:00: mouth [place] 00 the Medical morning. Branch traZODone Yes [id number] 50mg Take 1 U nivers 50 mg 8-02 tablet by ity of tablet 00:00: mouth at [place] 00 bedtime. Medical Branch SERTraline Yes [id number] 50mg Take 1 [facility] (ZOLOFT) 50 8-02 tablet by ity of mg tablet 00:00: mouth in [place] 00 the Medical morning. Branch traZODone Yes [id number] 50mg Take 1 U nivers 50 mg 8-02 tablet by ity of tablet 00:00: mouth at [place] 00 bedtime. Medical Branch SERTraline Yes [id number] 50mg Take 1 [facility] (ZOLOFT) 50 8-02 tablet by ity of mg tablet 00:00: mouth [place] 00 the Medical morning. Branch traZODone 2021- No [id number] 50mg Take 1 [facility] 50 mg 8-02 10-18 tablet by ity of tablet 00:00: 00:00 mouth at [place] 00 :00 bedtime. Medical Branch SERTraline 2021- No [id number] 50mg Take 1 [facility] (ZOLOFT) 50 8-02 10-18 tablet by it y of mg tablet 00:00: 00:00 mouth in [place] as 00 :00 the Medical morning. Branch traZODone 2021- No [id number] 50mg Take 1 [facility] 50 mg 8-02 10-18 tablet by ity of tablet 00:00: 00:00 mouth at [place] 00 :00 bedtime. Medical Branch SERTraline 2021- No [id number] 50mg Take 1 Univers (ZOLOFT) 50 8-02 10-18 tablet by it y of mg tablet 00:00: 00:00 mouth in [place] as 00 :00 the Medical morning. Branch traZODone 2021- No [id number] 50mg Take 1 [facility] 50 mg 8-02 10-18 tablet by ity of tablet 00:00: 00:00 mouth at [place] 00 :00 bedtime. Medical Branch SERTraline 2021- No [id number] 50mg Take 1 [facility] (ZOLOFT) 50 8- 10-18 tablet by it y of mg tablet 00:00: 00:00 mouth in [place] [facility] as 00 :00 the Medical morning. Branch traZODone 2021-2021- No [id number] 50mg Take 1 [facility] 50 mg 8- 10-18 tablet by ity of tablet 00:00: 00:00 mouth at [place] 00 :00 bedtime. Medical Branch SERTraline 2021- No [id number] 50mg Take 1 [facility] (ZOLOFT) 50 8- 10-18 tablet by it y of mg tablet 00:00: 00:00 mouth in [place] [facility] as 00 :00 the Medical morning. Branch sulfamethox 2021- No [id number] 1{tbl} Take 1 [facility] azole-trime - 08-06 tablet by it y of thoprim 00:00: 04:59 mouth in [place] (BACTRIM 00 :00 the Medical DS) 800-160 morning Branc h mg per and 1 tablet tablet in the evening. Do all this for 3 days. ibuprofen 2021-0 Yes [id number] 600mg Take 1 [facility] 600 mg 7-15 tablet by ity of tablet 00:00: mouth [place] 00 every 6 Medical (six) Branch hours as needed for Pain (scale 4-6). ibuprofen 2021-0 Yes [id number] 600mg Take 1 [facility] 600 mg 7-15 tablet by ity of tablet 00:00: mouth [place] [address] every 6 Medical (six) Branch hours as needed for Pain (scale 4-6). ibuprofen 2021-0 Yes [id number] 600mg Take 1 [facility] 600 mg 7-15 tablet by ity of tablet 00:00: mouth [place] [address] every 6 Medical (six) Branch hours as needed for Pain (scale 4-6). ibuprofen 2021-0 Yes [id number] 600mg Take 1 [facility] 600 mg 7-15 tablet by ity of tablet 00:00: mouth [place] [address] every 6 Medical (six) Branch hours as needed for Pain (scale 4-6). ibuprofen 2021-0 Yes [id number] 600mg Take 1 [facility] 600 mg 7-15 tablet by ity of tablet 00:00: mouth [place] 00 every 6 Medical (six) Branch hours as needed for Pain (scale 4-6). ibuprofen 2-0 Yes [id number] 600mg Take 1 [facility] 600 mg 7-15 tablet by ity of tablet 00:00: mouth [place] 00 every 6 Medical (six) Branch hours as needed for Pain (scale 4-6). ibuprofen 2-0 Yes [id number] 600mg Take 1 [facility] 600 mg 7-15 tablet by ity of tablet 00:00: mouth [place] 00 every 6 Medical (six) Branch hours as needed for Pain (scale 4-6). ibuprofen 2021-0 Yes [id number] 600mg Take 1 [facility] 600 mg 7-15 tablet by ity of tablet 00:00: mouth [place] 00 every 6 Medical (six) Branch hours as needed for Pain (scale 4-6). ibuprofen 2021-0 Yes [id number] 600mg Take 1 [facility] 600 mg 7-15 tablet by ity of tablet 00:00: mouth [place] 00 every 6 Medical (six) Branch hours as needed for Pain (scale 4-6). ibuprofen 2021-0 Yes [id number] 600mg Take 1 [facility] 600 mg 7-15 tablet by ity of tablet 00:00: mouth [place] 00 every 6 Medical (six) Branch hours as needed for Pain (scale 4-6). ibuprofen 2021-0 Yes [id number] 600mg Take 1 [facility] 600 mg 7-15 tablet by ity of tablet 00:00: mouth [place] 00 every 6 Medical (six) Branch hours as needed for Pain (scale 4-6). ibuprofen 202-0 2022- No [id number] 600mg Take 1 [facility] 600 mg 7-15 10-18 tablet by ity of tablet 00:00: 00:00 mouth [place] 00 :00 every 6 Medical (six) Branch hours as needed for Pain (scale 4-6). ibuprofen 2022-0 2022- No [id number] 600mg Take 1 [facility] 600 mg 7-15 10-18 tablet by ity of tablet 00:00: 00:00 mouth [place] 00 :00 every 6 Medical (six) Branch hours as needed for Pain (scale 4-6). ibuprofen 2022-0 2022- No [id number] 600mg Take 1 [facility] 600 mg 7-15 10-18 tablet by ity of tablet 00:00: 00:00 mouth [place] 00 :00 every 6 Medical (six) Branch hours as needed for Pain (scale 4-6). ibuprofen 2021- No [id number] 600mg Take 1 [facility] 600 mg 7-15 [...] Indication s: acute pain bromphenira 0 Yes [id number] 5mL Take 5 mL [facility] mine-pseudo 7-09 by mouth 4 it y of ephedrine-D 00:00: (four) [place] (BROMFED 00 times Medical DM) 2-30-10 daily as Bran ch mg/5 mL needed for syrup Congestion /Allergies or Cough. naproxen 2021-0 Yes [id number] 500mg Take 1 U nivers 500 mg 7-09 tablet by ity of tablet 00:00: mouth [place] 00 every 8 Medical (eight) Branch hours as needed for Pain (scale 4-6). cyclobenzap 2021-0 Yes [id number] 10mg Take 1 [facility] rine 10 mg 7-09 tablet by ity of tablet 00:00: mouth at [place] 00 bedtime as Medical needed for Branch Muscle Spasms. bromphenira 2021-0 Yes [id number] 5mL Take 5 mL [facility] mine-pseudo 7-09 by mouth 4 it y of ephedrine-D 00:00: (four) [place] M (BROMFED 00 times Medical DM) 2-30-10 daily as Bran ch mg/5 mL needed for syrup Congestion /Allergies or Cough. naproxen 2021-0 Yes [id number] 500mg Take 1 U nivers 500 mg 7-09 tablet by ity of tablet 00:00: mouth [place] 00 every 8 Medical (eight) Branch hours as needed for Pain (scale 4-6). cyclobenzap 2021-0 Yes [id number] 10mg Take 1 [facility] rine 10 mg 7-09 tablet by ity of tablet 00:00: mouth at [place] 00 bedtime as Medical needed for Branch Muscle Spasms. bromphenira 2021-0 Yes [id number] 5mL Take 5 mL [facility] mine-pseudo 7-09 by mouth 4 it y of ephedrine-D 00:00: (four) [place] M (BROMFED 00 times Medical DM) 2-30-10 daily as Bran ch mg/5 mL needed for syrup Congestion /Allergies or Cough. naproxen 2021-0 Yes [id number] 500mg Take 1 U nivers 500 mg 7-09 tablet by ity of tablet 00:00: mouth [place] 00 every 8 Medical (eight) Branch hours as needed for Pain (scale 4-6). cyclobenzap 2021-0 Yes [id number] 10mg Take 1 [facility] rine 10 mg 7-09 tablet by ity of tablet 00:00: mouth at [place] 00 bedtime as Medical needed for Branch Muscle Spasms. bromphenira 2021-0 Yes [id number] 5mL Take 5 mL [facility] mine-pseudo 7-09 by mouth 4 it y of ephedrine-D 00:00: (four) [place] M (BROMFED 00 times Medical DM) 2-30-10 daily as Bran ch mg/5 mL needed for syrup Congestion /Allergies or Cough. naproxen 2021-0 Yes [id number] 500mg Take 1 U nivers 500 mg 7-09 tablet by ity of tablet 00:00: mouth [place] 00 every 8 Medical (eight) Branch hours as needed for Pain (scale 4-6). cyclobenzap 2021-0 Yes [id number] 10mg Take 1 [facility] rine 10 mg 7-09 tablet by ity of tablet 00:00: mouth at [place] 00 bedtime as Medical needed for Branch Muscle Spasms. bromphenira 2021-0 Yes [id number] 5mL Take 5 mL [facility] mine-pseudo 7-09 by mouth 4 it y of ephedrine-D 00:00: (four) [place] M (BROMFED 00 times Medical DM) 2-30-10 daily as Bran ch mg/5 mL needed for syrup Congestion /Allergies or Cough. naproxen 2021-0 Yes [id number] 500mg Take 1 U nivers 500 mg 7-09 tablet by ity of tablet 00:00: mouth [place] 00 every 8 Medical (eight) Branch hours as needed for Pain (scale 4-6). cyclobenzap 2022-0 Yes [id number] 10mg Take 1 [facility] rine 10 mg 7-09 tablet by ity of tablet 00:00: mouth at [place] 00 bedtime as Medical needed for Branch Muscle Spasms. bromphenira 2022-0 Yes [id number] 5mL Take 5 mL [facility] mine-pseudo 7-09 by mouth 4 it y of ephedrine-D 00:00: (four) [place] M (BROMFED 00 times Medical DM) 2-30-10 daily as Bran ch mg/5 mL needed for syrup Congestion /Allergies or Cough. naproxen 2022-0 Yes [id number] 500mg Take 1 U nivers 500 mg 7-09 tablet by ity of tablet 00:00: mouth [place] 00 every 8 Medical (eight) Branch hours as needed for Pain (scale 4-6). cyclobenzap 2-0 Yes [id number] 10mg Take 1 Univers rine 10 mg 7-09 tablet by ity of tablet 00:00: mouth at [place] 00 bedtime as Medical needed for Branch Muscle Spasms. bromphenira 2-0 Yes [id number] 5mL Take 5 mL [facility] mine-pseudo 7-09 by mouth 4 it y of ephedrine-D 00:00: (four) [place] M (BROMFED 00 times Medical DM) 2-30-10 daily as Bran ch mg/5 mL needed for syrup Congestion /Allergies or Cough. naproxen 2022-0 Yes [id number] 500mg Take 1 U nivers 500 mg 7-09 tablet by ity of tablet 00:00: mouth [place] 00 every 8 Medical (eight) Branch hours as needed for Pain (scale 4-6). cyclobenzap 2022-0 Yes [id number] 10mg Take 1 Univers rine 10 mg 7-09 tablet by ity of tablet 00:00: mouth at [place] 00 bedtime as Medical needed for Branch Muscle Spasms. bromphenira 2022-0 Yes [id number] 5mL Take 5 mL [facility] mine-pseudo 7-09 by mouth 4 it y of ephedrine-D 00:00: (four) [place] M (BROMFED 00 times Medical DM) 2-30-10 daily as Bran ch mg/5 mL needed for syrup Congestion /Allergies or Cough. naproxen 2022-0 Yes [id number] 500mg Take 1 U nivers 500 mg 7-09 tablet by ity of tablet 00:00: mouth [place] 00 every 8 Medical (eight) Branch hours as needed for Pain (scale 4-6). cyclobenzap 2022-0 Yes [id number] 10mg Take 1 Univers rine 10 mg 7-09 tablet by ity of tablet 00:00: mouth at [place] 00 bedtime as Medical needed for Branch Muscle Spasms. bromphenira 2022-0 Yes [id number] 5mL Take 5 mL [facility] mine-pseudo 7-09 by mouth 4 it y of ephedrine-D 00:00: (four) [place] M (BROMFED 00 times Medical DM) 2-30-10 daily as Bran ch mg/5 mL needed for syrup Congestion /Allergies or Cough. naproxen 2-0 Yes [id number] 500mg Take 1 U nivers 500 mg 7-09 tablet by ity of tablet 00:00: mouth [place] 00 every 8 Medical (eight) Branch hours as needed for Pain (scale 4-6). cyclobenzap 2-0 Yes [id number] 10mg Take 1 [facility] rine 10 mg 7-09 tablet by ity of tablet 00:00: mouth at [place] 00 bedtime as Medical needed for Branch Muscle Spasms. bromphenira 2-0 Yes [id number] 5mL Take 5 mL [facility] mine-pseudo 7-09 by mouth 4 it y of ephedrine-D 00:00: (four) [place] M (BROMFED 00 times Medical DM) 2-30-10 daily as Bran ch mg/5 mL needed for syrup Congestion /Allergies or Cough. naproxen 2022-0 Yes [id number] 500mg Take 1 U nivers 500 mg 7-09 tablet by ity of tablet 00:00: mouth [place] 00 every 8 Medical (eight) Branch hours as needed for Pain (scale 4-6). cyclobenzap 2022-0 Yes [id number] 10mg Take 1 Univers rine 10 mg 7-09 tablet by ity of tablet 00:00: mouth at [place] 00 bedtime as Medical needed for Branch Muscle Spasms. bromphenira 2022-0 Yes [id number] 5mL Take 5 mL [facility] mine-pseudo 7-09 by mouth 4 it y of ephedrine-D 00:00: (four) [place] M (BROMFED 00 times Medical DM) 2-30-10 daily as Bran ch mg/5 mL needed for syrup Congestion /Allergies or Cough. naproxen 2021-0 Yes [id number] 500mg Take 1 U nivers 500 mg 7-09 tablet by ity of tablet 00:00: mouth [place] 00 every 8 Medical (eight) Branch hours as needed for Pain (scale 4-6). cyclobenzap 2021-0 Yes [id number] 10mg Take 1 [facility] rine 10 mg 7-09 tablet by ity of tablet 00:00: mouth at [place] 00 bedtime as Medical needed for Branch Muscle Spasms. bromphenira 0 Yes [id number] 5mL Take 5 mL [facility] mine-pseudo 7-09 by mouth 4 it y of ephedrine-D 00:00: (four) [place] M (BROMFED 00 times Medical DM) 2-30-10 daily as Bran ch mg/5 mL needed for syrup Congestion /Allergies or Cough. bromphenira 2021-0 Yes [id number] 5mL Take 5 mL [facility] mine-pseudo 7-09 by mouth 4 it y of ephedrine-D 00:00: (four) [place] M (BROMFED 00 times Medical DM) 2-30-10 daily as Bran ch mg/5 mL needed for syrup Congestion /Allergies or Cough. bromphenira 2021-0 Yes [id number] 5mL Take 5 mL [facility] mine-pseudo 7-09 by mouth 4 it y of ephedrine-D 00:00: (four) [place] (BROMFED 00 times Medical DM) 2-30-10 daily as Bran ch mg/5 mL needed for syrup Congestion /Allergies or Cough. bromphenira 2021-0 Yes [id number] 5mL Take 5 mL [facility] mine-pseudo 7-09 by mouth 4 it y of ephedrine-D 00:00: (four) [place] (BROMFED 00 times Medical DM) 2-30-10 daily as Bran ch mg/5 mL needed for syrup Congestion /Allergies or Cough. bromphenira 2022-0 Yes [id number] 5mL Take 5 mL [facility] mine-pseudo 7-09 by mouth 4 it y of ephedrine-D 00:00: (four) [place] (BROMFED 00 times Medical DM) 2-30-10 daily as Bran ch mg/5 mL needed for syrup Congestion /Allergies or Cough. bromphenira 2021-0 Yes [id number] 5mL Take 5 mL [facility] mine-pseudo 7-09 by mouth 4 it y of ephedrine-D 00:00: (four) [place] M (BROMFED 00 times Medical DM) 2-30-10 daily as Bran ch mg/5 mL needed for syrup Congestion /Allergies or Cough. bromphenira 2021-0 Yes [id number] 5mL Take 5 mL [facility] mine-pseudo 7-09 by mouth 4 it y of ephedrine-D 00:00: (four) [place] M (BROMFED 00 times Medical DM) 2-30-10 daily as Bran ch mg/5 mL needed for syrup Congestion /Allergies or Cough. bromphenira 2021-0 Yes [id number] 5mL Take 5 mL [facility] mine-pseudo 7-09 by mouth 4 it y of ephedrine-D 00:00: (four) [place] (BROMFED 00 times Medical DM) 2-30-10 daily as Bran ch mg/5 mL needed for syrup Congestion /Allergies or Cough. bromphenira 2021-0 Yes [id number] 5mL Take 5 mL [facility] mine-pseudo 7-09 by mouth 4 it y of ephedrine-D 00:00: (four) [place] (BROMFED 00 times Medical DM) 2-30-10 daily as Bran ch mg/5 mL needed for syrup Congestion /Allergies or Cough. bromphenira 2021-0 Yes [id number] 5mL Take 5 mL [facility] mine-pseudo 7-09 by mouth 4 it y of ephedrine-D 00:00: (four) [place] (BROMFED 00 times Medical DM) 2-30-10 daily as Bran ch mg/5 mL needed for syrup Congestion /Allergies or Cough. bromphenira 2-0 Yes [id number] 5mL Take 5 mL [facility] mine-pseudo 7-09 by mouth 4 it y of ephedrine-D 00:00: (four) [place] (BROMFED 00 times Medical DM) 2-30-10 daily as Bran ch mg/5 mL needed for syrup Congestion /Allergies or Cough. bromphenira 2021-0 Yes [id number] 5mL Take 5 mL [facility] mine-pseudo 7-09 by mouth 4 it y of ephedrine-D 00:00: (four) [place] (BROMFED 00 times Medical DM) 2-30-10 daily as Bran ch mg/5 mL needed for syrup Congestion /Allergies or Cough. bromphenira 2021-0 Yes [id number] 5mL Take 5 mL [facility] mine-pseudo 7-09 by mouth 4 it y of ephedrine-D 00:00: (four) [place] (BROMFED 00 times Medical DM) 2-30-10 daily as Bran ch mg/5 mL needed for syrup Congestion /Allergies or Cough. bromphenira 2021-0 Yes [id number] 5mL Take 5 mL [facility] mine-pseudo 7-09 by mouth 4 it y of ephedrine-D 00:00: (four) [place] (BROMFED 00 times Medical DM) 2-30-10 daily as Bran ch mg/5 mL needed for syrup Congestion /Allergies or Cough. bromphenira 2021- No [id number] 5mL Take 5 mL [facility] mine-pseudo 7- 11-12 by mouth 4 i ty of ephedrine-D 00:00: 00:00 (four) [place] M (BROMFED 00 :00 times Medical DM) 2-30-10 daily as Bran ch mg/5 mL needed for syrup Congestion /Allergies or Cough. naproxen 2021- No [id number] 500mg Take 1 [facility] 500 mg 7- 10-18 tablet by ity of tablet 00:00: 00:00 mouth [place] 00 :00 every 8 Medical (eight) Branch hours as needed for Pain (scale 4-6). cyclobenzap 2021-2021- No [id number] 10mg Take 1 [facility] rine 10 mg 7- 10-18 tablet by ity of tablet 00:00: 00:00 mouth at [place] 00 :00 bedtime as Medical needed for Branch Muscle Spasms. naproxen 2021-0 2021- No [id number] 500mg Take 1 [facility] 500 mg 7- 10-18 tablet by ity of tablet 00:00: 00:00 mouth [place] 00 :00 every 8 Medical (eight) Branch hours as needed for Pain (scale 4-6). cyclobenzap No [id number] 10mg Take 1 [facility] rine 10 mg 11-18-18 tablet by ity of tablet 00:00: 00:00 mouth at [place] 00 :00 bedtime as Medical needed for Branch Muscle Spasms. naproxen No [id number] 500mg Take 1 [facility] 500 mg 11-18-18 tablet by ity of tablet 00:00: 00:00 mouth [place] 00 :00 every 8 Medical (eight) Branch hours as needed for Pain (scale 4-6). cyclobenzap No [id number] 10mg Take 1 [facility] rine 10 mg 11-1818 tablet by ity of tablet 00:00: 00:00 mouth at [place] 00 :00 bedtime as Medical needed for Branch Muscle Spasms. naproxen No [id number] 500mg Take 1 [facility] 500 mg 11-1818 tablet by ity of tablet 00:00: 00:00 mouth [place] 00 :00 every 8 Medical (eight) Branch hours as needed for Pain (scale 4-6). cyclobenzap No [id number] 10mg Take 1 [facility] rine 10 mg 11-1818 tablet by ity of tablet 00:00: 00:00 mouth at [place] 00 :00 bedtime as Medical needed for Branch Muscle Spasms. ibuprofen Yes [id number] 605mg Take 30.25 Univers 100 mg/5 mL 6-15 mL by ity of oral 00:00: mouth [place] 00 every 6 Medica l (six) Branch hours as needed for Pain (scale 4-6) or Temp > 38.5 C. ibuprofen 0 Yes [id number] 605mg Take 30.25 [facility] 100 mg/5 mL 6-15 mL by ity of oral 00:00: mouth [place] suspension 00 every 6 Medica l (six) Branch hours as needed for Pain (scale 4-6) or Temp > 38.5 C. ibuprofen Yes [id number] 605mg Take 30.25 [facility] 100 mg/5 mL 6-15 mL by ity of oral 00:00: mouth [place] suspension 00 every 6 Medica l (six) Branch hours as needed for Pain (scale 4-6) or Temp > 38.5 C. ibuprofen 2022-0 Yes [id number] 605mg Take 30.25 [facility] 100 mg/5 mL 6-15 mL by ity of oral 00:00: mouth [place] suspension 00 every 6 Medica l (six) Branch hours as needed for Pain (scale 4-6) or Temp > 38.5 C. ibuprofen 2022-0 Yes [id number] 605mg Take 30.25 [facility] 100 mg/5 mL 6-15 mL by ity of oral 00:00: mouth [place] suspension 00 every 6 Medica l (six) Branch hours as needed for Pain (scale 4-6) or Temp > 38.5 C. ibuprofen 2022-0 Yes [id number] 605mg Take 30.25 [facility] 100 mg/5 mL 6-15 mL by ity of oral 00:00: mouth [place] suspension 00 every 6 Medica l (six) Branch hours as needed for Pain (scale 4-6) or Temp > 38.5 C. ibuprofen 2022-0 Yes [id number] 605mg Take 30.25 [facility] 100 mg/5 mL 6-15 mL by ity of oral 00:00: mouth [place] suspension 00 every 6 Medica l (six) Branch hours as needed for Pain (scale 4-6) or Temp > 38.5 C. ibuprofen 2022-0 Yes [id number] 605mg Take 30.25 [facility] 100 mg/5 mL 6-15 mL by ity of oral 00:00: mouth [place] suspension 00 every 6 Medica l (six) Branch hours as needed for Pain (scale 4-6) or Temp > 38.5 C. ibuprofen 2022-0 Yes [id number] 605mg Take 30.25 [facility] 100 mg/5 mL 6-15 mL by ity of oral 00:00: mouth [place] suspension 00 every 6 Medica l (six) Branch hours as needed for Pain (scale 4-6) or Temp > 38.5 C. ibuprofen 2022-0 Yes [id number] 605mg Take 30.25 [facility] 100 mg/5 mL 6-15 mL by ity of oral 00:00: mouth [place] suspension 00 every 6 Medica l (six) Branch hours as needed for Pain (scale 4-6) or Temp > 38.5 C. ibuprofen Yes [id number] 605mg Take 30.25 [facility] 100 mg/5 mL 6-15 mL by ity of oral 00:00: mouth [place] suspension 00 every 6 Medica l (six) Branch hours as needed for Pain (scale 4-6) or Temp > 38.5 C. ibuprofen 2021- No [id number] 605mg Take 30.25 [facility] 100 mg/5 mL 6-15 10-18 mL by ity of oral 00:00: 00:00 mouth [place] suspension 00 :00 every 6 Medica l (six) Branch hours as needed for Pain (scale 4-6) or Temp > 38.5 C. ibuprofen 2021- No [id number] 605mg Take 30.25 [facility] 100 mg/5 mL 6-15 10-18 mL by ity of oral 00:00: 00:00 mouth [place] suspension 00 :00 every 6 Medica l (six) Branch hours as needed for Pain (scale 4-6) or Temp > 38.5 C. ibuprofen 2021- No [id number] 605mg Take 30.25 [facility] 100 mg/5 mL 6-15 10-18 mL by ity of oral 00:00: 00:00 mouth [place] suspension 00 :00 every 6 Medica l (six) Branch hours as needed for Pain (scale 4-6) or Temp > 38.5 C. ibuprofen 2021- No [id number] 605mg Take 30.25 [facility] 100 mg/5 mL 6-15 10-18 mL by ity of oral 00:00: 00:00 mouth [place] suspension 00 :00 every 6 Medica l (six) Branch hours as needed for Pain (scale 4-6) or Temp > 38.5 C. acetaminoph 2- No [id number] 608mg Take 19 mL [facility] en 160 mg/5 6-15 08-02 by mouth ity of mL liquid 00:00: 00:00 [place] 6 [place] (six) Medical hours as Branch needed for Fever. DULoxetine 0 Yes [facility] 60 mg 5-27 ity of capsule 00:00: [place] 00 Medical Branch DULoxetine 2-0 Yes [facility] 60 mg 5-27 ity of capsule 00:00: [place] 00 [facility] Branch DULoxetine 2-0 Yes [facility] 60 mg 5-27 ity of capsule 00:00: [place] 00 Medical Branch DULoxetine 2-0 Yes [facility] 60 mg 5-27 ity of capsule 00:00: [place] [address] Medical Branch DULoxetine 2-0 Yes [facility] 60 mg 5-27 ity of capsule 00:00: [place] [address] Medical Branch DULoxetine 2-0 Yes [facility] 60 mg 5-27 ity of capsule 00:00: [place] [address] Medical Branch DULoxetine 2-0 Yes [facility] 60 mg 5-27 ity of capsule 00:00: [place] [address] Medical Branch DULoxetine 2-0 Yes [facility] 60 mg 5-27 ity of capsule 00:00: [place] [address] Medical Branch DULoxetine 2-0 Yes [facility] 60 mg 5-27 ity of capsule 00:00: [place] [address] Medical Branch DULoxetine 2-0 Yes [facility] 60 mg 5-27 ity of capsule 00:00: [place] [address] Medical Branch DULoxetine 2-0 Yes [facility] 60 mg 5-27 ity of capsule 00:00: [place] 00 Medical Branch DULoxetine 2021-0 2022- No Univer s 60 mg 5-27 10-18 ity of capsule 00:00: 00:00 [place] 00 :00 Medical Branch DULoxetine 2-0 2- No Univer s 60 mg 5-27 10-18 ity of capsule 00:00: 00:00 [place] 00 :00 Medical Branch DULoxetine 2-0 2022- No Univer s 60 mg 5-27 10-18 ity of capsule 00:00: 00:00 [place] 00 :00 Medical Branch DULoxetine 2-0 2022- No Univer s 60 mg 5-27 10-18 ity of capsule 00:00: 00:00 [place] 00 :00 Medical Branch traZODone 2021-0 2- No [facility] 50 mg 5-27 08-02 ity of tablet 00:00: 00:00 [place] 00 :00 Medical Branch mometasone 2021-0 Yes [id number] 1{spray Use 1 [facility] 50 5-19 } [place] ity of mcg/actuati 00:00: each [place] on nasal 00 nostril 2 Medica l spray (two) Branch times daily. mometasone 2021-0 Yes [id number] 1{spray Use 1 [facility] 50 5-19 } [place] ity of mcg/actuati 00:00: each [place] on nasal 00 nostril 2 Medica l spray (two) Branch times daily. mometasone 2021-0 Yes [id number] 1{spray Use 1 [facility] 50 5-19 } [place] ity of mcg/actuati 00:00: each [place] on nasal 00 nostril 2 Medica l spray (two) Branch times daily. mometasone 2021-0 Yes [id number] 1{spray Use 1 [facility] 50 5-19 } [place] ity of mcg/actuati 00:00: each [place] on nasal 00 nostril 2 Medica l spray (two) Branch times daily. mometasone 2021-0 Yes [id number] 1{spray Use 1 [facility] 50 5-19 } [place] ity of mcg/actuati 00:00: each [place] on nasal 00 nostril 2 Medica l spray (two) Branch times daily. mometasone 2021-0 Yes [id number] 1{spray Use 1 [facility] 50 5-19 } [place] ity of mcg/actuati 00:00: each [place] on nasal 00 nostril 2 Medica l spray (two) Branch times daily. mometasone 2021-0 Yes [id number] 1{spray Use 1 [facility] 50 5-19 } [place] ity of mcg/actuati 00:00: each [place] on nasal 00 nostril 2 Medica l spray (two) Branch times daily. mometasone 2021-0 Yes [id number] 1{spray Use 1 [facility] 50 5-19 } [place] ity of mcg/actuati 00:00: each [place] on nasal 00 nostril 2 Medica l spray (two) Branch times daily. mometasone 2021-0 Yes [id number] 1{spray Use 1 [facility] 50 5-19 } [place] ity of mcg/actuati 00:00: each [place] on nasal 00 nostril 2 Medica l spray (two) Branch times daily. mometasone 2021-0 Yes [id number] 1{spray Use 1 [facility] 50 5-19 } [place] ity of mcg/actuati 00:00: each [place] on nasal 00 nostril 2 Medica l spray (two) Branch times daily. mometasone Yes [id number] 1{spray Use 1 [facility] 50 5-19 } [place] ity of mcg/actuati 00:00: each [place] on nasal 00 nostril 2 Medica l spray (two) Branch times daily. mometasone 2021- No [id number] 1{spray Use 1 [facility] 50 5-19 10-18 } [place] ity of mcg/actuati 00:00: 00:00 each [place] on nasal 00 :00 nostril 2 Medica l spray (two) Branch times daily. mometasone 2021- No [id number] 1{spray Use 1 [facility] 50 5-19 10-18 } [place] ity of mcg/actuati 00:00: 00:00 each [place] on nasal 00 :00 nostril 2 Medica l spray (two) Branch times daily. mometasone 2021- No [id number] 1{spray Use 1 [facility] 50 5-19 10-18 } [place] ity of mcg/actuati 00:00: 00:00 each [place] on nasal 00 :00 nostril 2 Medica l spray (two) Branch times daily. mometasone 2021- No [id number] 1{spray Use 1 [facility] 50 5-19 10-18 } [place] ity of mcg/actuati 00:00: 00:00 each [place] on nasal 00 :00 nostril 2 Medica l spray (two) Branch times daily. cetirizine Yes [id number] 10mg Take 1 U nivers (ZYRTEC) 10 5-16 tablet by ity of mg tablet 00:00: mouth [place] 00 daily. Medical Branch cetirizine Yes [id number] 10mg Take 1 U nivers (ZYRTEC) 10 5-16 tablet by ity of mg tablet 00:00: mouth 00 daily. Medical Branch cetirizine Yes [id number] 10mg Take 1 U nivers (ZYRTEC) 10 5-16 tablet by ity of mg tablet 00:00: mouth [place] 00 daily. Medical Branch cetirizine Yes [id number] 10mg Take 1 U nivers (ZYRTEC) 10 5-16 tablet by ity of mg tablet 00:00: mouth [place] 00 daily. [facility] Branch cetirizine Yes [id number] 10mg Take 1 U nivers (ZYRTEC) 10 5-16 tablet by ity of mg tablet 00:00: mouth [place] 00 daily. [facility] Branch cetirizine Yes [id number] 10mg Take 1 U nivers (ZYRTEC) 10 5-16 tablet by ity of mg tablet 00:00: mouth [place] 00 daily. [facility] Branch cetirizine Yes [id number] 10mg Take 1 U nivers (ZYRTEC) 10 5-16 tablet by ity of mg tablet 00:00: mouth [place] 00 daily. [facility] Branch cetirizine Yes [id number] 10mg Take 1 U nivers (ZYRTEC) 10 5-16 tablet by ity of mg tablet 00:00: mouth [place] 00 daily. [facility] Branch cetirizine Yes [id number] 10mg Take 1 U nivers (ZYRTEC) 10 5-16 tablet by ity of mg tablet 00:00: mouth [place] 00 daily. [facility] Branch cetirizine Yes [id number] 10mg Take 1 U nivers (ZYRTEC) 10 5-16 tablet by ity of mg tablet 00:00: mouth [place] 00 daily. [facility] Branch cetirizine Yes [id number] 10mg Take 1 U nivers (ZYRTEC) 10 5-16 tablet by ity of mg tablet 00:00: mouth [place] 00 daily. [facility] Branch cetirizine 2021- No [id number] 10mg Take 1 Univers (ZYRTEC) 10 5-16 10-18 tablet by it y of mg tablet 00:00: 00:00 mouth [place] 00 :00 daily. [facility] Branch cetirizine 2021- No [id number] 10mg Take 1 Univers (ZYRTEC) 10 5-16 10-18 tablet by it y of mg tablet 00:00: 00:00 mouth [place] 00 :00 daily. [facility] Branch cetirizine 2021- No [id number] 10mg Take 1 Univers (ZYRTEC) 10 5-16 10-18 tablet by it y of mg tablet 00:00: 00:00 mouth [place] 00 :00 daily. Medical Branch cetirizine 2-0 2022- No [id number] 10mg Take 1 Univers (ZYRTEC) 10 5-16 10-18 tablet by it y of mg tablet 00:00: 00:00 mouth [place] 00 :00 daily. Medical Branch DULoxetine 2022-0 Yes [facility] 30 mg 5-09 ity of capsule 00:00: [place] 00 Medical Branch gabapentin 2022-0 Yes [facility] 300 mg 5-09 ity of capsule 00:00: [place] 00 Medical Branch ondansetron 2022-0 Yes Univer s 4 mg tablet 5-09 ity of 00:00: [place] 00 Medical Branch DULoxetine 2022-0 Yes [facility] 30 mg 5-09 ity of capsule 00:00: [place] 00 Medical Branch gabapentin 2022-0 Yes [facility] 300 mg 5-09 ity of capsule 00:00: [place] 00 Medical Branch ondansetron 2022-0 Yes Univer s 4 mg tablet 5-09 ity of 00:00: [place] 00 Medical Branch DULoxetine 2022-0 Yes [facility] 30 mg 5-09 ity of capsule 00:00: [place] [address] Medical Branch gabapentin 2022-0 Yes [facility] 300 mg 5-09 ity of capsule 00:00: [place] [address] Medical Branch ondansetron 2022-0 Yes Univer s 4 mg tablet 5-09 ity of 00:00: [place] 00 Medical Branch DULoxetine 2022-0 Yes [facility] 30 mg 5-09 ity of capsule 00:00: [place] [address] Medical Branch gabapentin 2022-0 Yes [facility] 300 mg 5-09 ity of capsule 00:00: [place] 00 Medical Branch ondansetron 2022-0 Yes Univer s 4 mg tablet 5-09 ity of 00:00: [place] 00 Medical Branch DULoxetine 2022-0 Yes [facility] 30 mg 5-09 ity of capsule 00:00: [place] [address] Medical Branch gabapentin 2022-0 Yes [facility] 300 mg 5-09 ity of capsule 00:00: [place] 00 Medical Branch ondansetron 2022-0 Yes Univer s 4 mg tablet 5-09 ity of 00:00: [place] [address] Medical Branch DULoxetine 2022-0 Yes [facility] 30 mg 5-09 ity of capsule 00:00: [place] [address] Medical Branch gabapentin 2022-0 Yes [facility] 300 mg 5-09 ity of capsule 00:00: [place] 00 Medical Branch ondansetron 2022-0 Yes Univer s 4 mg tablet 5-09 ity of 00:00: [place] [address] Medical Branch DULoxetine 2022-0 Yes [facility] 30 mg 5-09 ity of capsule 00:00: [place] [address] Medical Branch gabapentin 2022-0 Yes [facility] 300 mg 5-09 ity of capsule 00:00: [place] [address] Medical Branch ondansetron 2022-0 Yes Univer s 4 mg tablet 5-09 ity of 00:00: [place] [address] Medical Branch DULoxetine 2022-0 Yes [facility] 30 mg 5-09 ity of capsule 00:00: [place] [address] Medical Branch gabapentin 2022-0 Yes [facility] 300 mg 5-09 ity of capsule 00:00: [place] [address] Medical Branch ondansetron 2022-0 Yes Univer s 4 mg tablet 5-09 ity of 00:00: [place] [address] Medical Branch DULoxetine 2022-0 Yes [facility] 30 mg 5-09 ity of capsule 00:00: [place] [address] Medical Branch gabapentin 2022-0 Yes [facility] 300 mg 5-09 ity of capsule 00:00: [place] [address] Medical Branch ondansetron 2022-0 Yes Univer s 4 mg tablet 5-09 ity of 00:00: [place] [address] Medical Branch DULoxetine 2022-0 Yes [facility] 30 mg 5-09 ity of capsule 00:00: [place] [address] Medical Branch gabapentin 2022-0 Yes [facility] 300 mg 5-09 ity of capsule 00:00: [place] [address] Medical Branch ondansetron 2022-0 Yes Univer s 4 mg tablet 5-09 ity of 00:00: [place] [address] Medical Branch DULoxetine 2022-0 Yes [facility] 30 mg 5-09 ity of capsule 00:00: [place] [address] Medical Branch gabapentin 2022-0 Yes [facility] 300 mg 5-09 ity of capsule 00:00: [place] [address] Medical Branch ondansetron 2022-0 Yes Univer s 4 mg tablet 5-09 ity of 00:00: [place] 00 Medical Branch DULoxetine 2022-0 2022- No Univer s 30 mg 5-09 10-18 ity of capsule 00:00: 00:00 [place] 00 :00 Medical Branch gabapentin 2022-0 2022- No Univer s 300 mg 5-09 10-18 ity of capsule 00:00: 00:00 [place] 00 :00 Medical Branch ondansetron 2022-0 2022- No Unive rs 4 mg tablet 09-18 ity of 00:00: 00:00 [place] 00 :00 Medical Branch DULoxetine 2022-0 2022- No Univer s 30 mg 09-18 ity of capsule 00:00: 00:00 [place] 00 :00 Medical Branch gabapentin 2022-0 2022- No Univer s 300 mg 09-18 ity of capsule 00:00: 00:00 [place] 00 :00 Medical Branch ondansetron 2022-0 2022- No Unive rs 4 mg tablet 09-18 ity of 00:00: 00:00 [place] 00 :00 Medical Branch DULoxetine 2022-0 2- No Univer s 30 mg 09-18 ity of capsule 00:00: 00:00 [place] 00 :00 Medical Branch gabapentin 2022-0 2- No Univer s 300 mg 09-18 ity of capsule 00:00: 00:00 [place] 00 :00 Medical Branch ondansetron 2022-0 2022- No Unive rs 4 mg tablet 09-18 ity of 00:00: 00:00 [place] 00 :00 Medical Branch DULoxetine 2022-0 2- No Univer s 30 mg 09-18 ity of capsule 00:00: 00:00 [place] 00 :00 Medical Branch gabapentin 2022-0 2022- No Univer s 300 mg 09-18 ity of capsule 00:00: 00:00 [place] 00 :00 Medical Branch ondansetron 2022-0 2022- No Unive rs 4 mg tablet 09-18 ity of 00:00: 00:00 [place] 00 :00 Medical Branch amLODIPine 2022-0 Yes Univers 5 mg tablet 4-22 ity of 00:00: [place] 00 Medical Branch amLODIPine 2022-0 Yes 5mg Take 5 mg Un sushant 5 mg tablet 4-22 by mouth. ity of 00:00: [place] 00 Medical Branch amLODIPine 2022-0 Yes [facility] 5 mg tablet 4-22 ity of 00:00: [place] 00 Medical Branch amLODIPine 2022-0 Yes 5mg Take 5 mg Un sushant 5 mg tablet 4-22 by mouth. ity of 00:00: [place] 00 Medical Branch amLODIPine 2022-0 Yes [facility] 5 mg tablet 4-22 ity of 00:00: [place] [facility] amLODIPine 2022-0 Yes 5mg Take 5 mg Un sushant 5 mg tablet 4-22 by mouth. ity of 00:00: [place] [facility] amLODIPine 2022-0 Yes Univers 5 mg tablet 4-22 ity of 00:00: [place] [facility] amLODIPine 2022-0 Yes 5mg Take 5 mg Un sushant 5 mg tablet 4-22 by mouth. ity of 00:00: [place] [facility] amLODIPine 2022-0 Yes Univers 5 mg tablet 4-22 ity of 00:00: [place] [facility] amLODIPine 2022-0 Yes 5mg Take 5 mg Un sushant 5 mg tablet 4-22 by mouth. ity of 00:00: [place] [facility] amLODIPine 2022-0 Yes Univers 5 mg tablet 4-22 ity of 00:00: [place] [facility] amLODIPine 2022-0 Yes 5mg Take 5 mg Un sushant 5 mg tablet 4-22 by mouth. ity of 00:00: [place] [facility] amLODIPine 2022-0 Yes Univers 5 mg tablet 4-22 ity of 00:00: [place] [facility] amLODIPine 2022-0 Yes 5mg Take 5 mg Un sushant 5 mg tablet 4-22 by mouth. ity of 00:00: [place] [facility] amLODIPine 2022-0 Yes Univers 5 mg tablet 4-22 ity of 00:00: [place] [facility] amLODIPine 2022-0 Yes 5mg Take 5 mg Un sushant 5 mg tablet 4-22 by mouth. ity of 00:00: [place] [facility] amLODIPine 2022-0 Yes Univers 5 mg tablet 4-22 ity of 00:00: [place] [facility] amLODIPine 2022-0 Yes 5mg Take 5 mg Un sushant 5 mg tablet 4-22 by mouth. ity of 00:00: [place] [facility] amLODIPine 2022-0 Yes Univers 5 mg tablet 4-22 ity of 00:00: [place] [facility] amLODIPine 2022-0 Yes 5mg Take 5 mg Un sushant 5 mg tablet 4-22 by mouth. ity of 00:00: [place] [facility] amLODIPine 2022-0 Yes Univers 5 mg tablet 4-22 ity of 00:00: [place] 00 Medical Branch amLODIPine 2022-0 Yes 5mg Take 5 mg Un sushant 5 mg tablet 09-01 by mouth. ity of 00:00: [place] 00 Medical Branch amLODIPine 2022-0 2022- No Univer s 5 mg tablet 09-01 ity of 00:00: 00:00 [place] 00 :00 Medical Branch amLODIPine 2022-0 2022- No 5mg Take 5 mg U nivers 5 mg tablet 09-01 by mouth. it y of 00:00: 00:00 [place] 00 :00 Medical Branch amLODIPine 2022-0 2022- No Univer s 5 mg tablet 09-01 ity of 00:00: 00:00 [place] 00 :00 Medical Branch amLODIPine 2022-0 2022- No 5mg Take 5 mg U nivers 5 mg tablet 09-01 by mouth. it y of 00:00: 00:00 [place] 00 :00 Medical Branch amLODIPine 2022-0 2022- No Univer s 5 mg tablet 09-01 ity of 00:00: 00:00 [place] 00 :00 Medical Branch amLODIPine 2022-0 2022- No 5mg Take 5 mg U nivers 5 mg tablet 09-01 by mouth. it y of 00:00: 00:00 [place] 00 :00 Medical Branch amLODIPine 2022-0 2022- No Univer s 5 mg tablet 09-01 ity of 00:00: 00:00 [place] 00 :00 Medical Branch amLODIPine 2022-0 2022- No 5mg Take 5 mg U nivers 5 mg tablet 09-01 by mouth. it y of 00:00: 00:00 [place] 00 :00 Medical Branch buPROPion 2-0 Yes [...] mg 4-20 ity of 24 hr 00:00: [place] tablet 00 Medical Branch buPROPion 2022-0 Yes [...] of 24 hr 00:00: [place] tablet 00 [facility] Branch buPROPion 2022- No [...] 00 :00 [facility] Branch buPROPion 3- No 150mg Take 150 Un sushant XL 150 mg 4-20 04-21 mg by ity of 24 hr 00:00: 04:59 mouth. [place] tablet 00 :00 [facility] buPROPion 2022- No 150mg Take 150 Un [...] by ity o f 00:00: mouth 2 [place] 00 (two) Medical times Branch daily. carvediloL 2020-2021- No 25mg Take 1 Univ ers 25 mg 2-30 10-18 tablet by ity of tablet 00:00: 00:00 mouth 2 [place] 00 :00 (two) Medical times Branch daily with meals. losartan 50 2020-2021- No 50mg Take 1 Uni vers mg tablet 2-30 10-18 tablet by ity of 00:00: 00:00 mouth 2 [place] 00 :00 (two) Medical times Branch daily. carvediloL 2020-2021- No 25mg Take 1 Univ ers 25 mg 2-30 10-18 tablet by ity of tablet 00:00: 00:00 mouth 2 [place] 00 :00 (two) Medical times Branch daily with meals. losartan 50 2020-05- No 50mg Take 1 Uni vers mg tablet 2-30 10-18 tablet by ity of 00:00: 00:00 mouth 2 [place] 00 :00 (two) Medical times Branch daily. carvediloL 2020-05- No 25mg Take 1 Univ ers 25 mg 2-30 10-18 tablet by ity of tablet 00:00: 00:00 mouth 2 [place] 00 :00 (two) Medical times Branch daily with meals. losartan 50 2020-05- No 50mg Take 1 Uni vers mg tablet 2-30 10-18 tablet by ity of 00:00: 00:00 mouth 2 [place] 00 :00 (two) Medical times Branch daily. carvediloL 2020-05- No 25mg Take 1 Univ ers 25 mg 2-30 10-18 tablet by ity of tablet 00:00: 00:00 mouth 2 [place] 00 :00 (two) Medical times Branch daily with meals. losartan 50 2020-05- No 50mg Take 1 Uni vers mg tablet 2-30 10-18 tablet by ity of 00:00: 00:00 mouth 2 [place] 00 :00 (two) Medical times Branch daily. Immunizations Ordered Filled Immunization Date Status Comments [facility] e Immunization Name Name Influenza Virus 2022-02-27 [...] y of Vaccine Quad .5 mL 00:00:00 [place] [facility] 6+ MO Branch Influenza Virus 2021-06-11 Completed Universit y of Vaccine 00:00:00 [facility] Influenza Virus 2021-06-11 Completed Universit y of Vaccine 00:00:00 [facility] Influenza Virus 2021-06-11 Completed Universit y of Vaccine 00:00:00 [facility] Influenza Virus 2021-06-11 Completed Universit y of Vaccine 00:00:00 [facility] Influenza Virus 2021-06-11 Completed Universit y of Vaccine 00:00:00 [facility] Influenza Virus 2021-06-11 Completed Universit y of Vaccine 00:00:00 [facility] Branch Influenza Virus 2021-06-11 Completed Universit y of Vaccine 00:00:00 [facility] Influenza Virus 2021-06-11 Completed Universit y of Vaccine 00:00:00 [facility] Influenza Virus 2021-06-11 Completed Universit y of Vaccine 00:00:00 [facility] Influenza Virus 2021-06-11 Completed Universit y of Vaccine 00:00:00 [facility] Influenza Virus 2021-06-11 Completed Universit y of Vaccine 00:00:00 [facility] Influenza Virus 2021-06-11 Completed Universit y of Vaccine 00:00:00 [facility] Influenza Virus 2021-06-11 Completed Universit y of Vaccine 00:00:00 [facility] Influenza Virus 2021-06-11 Completed Universit y of Vaccine 00:00:00 [facility] Influenza Virus 2021-06-11 Completed Universit y of Vaccine 00:00:00 [facility] Influenza Virus 2021-06-11 Completed Universit y of Vaccine 00:00:00 [facility] Influenza Virus 2021-06-11 Completed Universit y of Vaccine 00:00:00 [facility] Influenza Virus 2021-06-11 Completed Universit y of Vaccine 00:00:00 [facility] Influenza Virus 2021-06-11 Completed Universit y of Vaccine 00:00:00 [facility] Influenza Virus 2021-06-11 Completed Universit y of Vaccine 00:00:00 [facility] Influenza Virus 2021-06-11 Completed Universit y of Vaccine 00:00:00 [facility] Influenza Virus 2021-06-11 Completed Universit y of Vaccine 00:00:00 [facility] Influenza Virus 2021-06-11 Completed Universit y of Vaccine 00:00:00 [facility] Influenza Virus 2021-06-11 Completed Universit y of Vaccine 00:00:00 [facility] Influenza Virus 2021-06-11 Completed Universit y of Vaccine 00:00:00 [facility] Influenza Virus 2021-06-11 Completed Universit y of Vaccine 00:00:00 [facility] Influenza Virus 2021-06-11 Completed Universit y of Vaccine 00:00:00 [facility] Influenza Virus 2021-06-11 Completed Universit y of Vaccine 00:00:00 [facility] Influenza Virus 2021-06-11 Completed Universit y of Vaccine 00:00:00 [facility] Influenza Virus 2021-06-11 Completed Universit y of Vaccine 00:00:00 [facility] Influenza Virus 2021-06-11 Completed Universit y of Vaccine 00:00:00 [facility] Branch Influenza Virus 2021-06-11 Completed Universit y of Vaccine 00:00:00 [facility] Branch Influenza Virus 2021-06-11 Completed Universit y of Vaccine 00:00:00 [facility] Branch Influenza Virus 2021-06-11 Completed Universit y of Vaccine 00:00:00 [facility] Branch Influenza Virus 2021-06-11 Completed Universit y of Vaccine 00:00:00 [place] [facility] Influenza Virus 2021-06-11 Completed Universit y of Vaccine 00:00:00 [facility] Influenza Virus 2021-06-11 Completed Universit y of Vaccine 00:00:00 [facility] Influenza Virus 2021-06-11 Completed Universit y of Vaccine 00:00:00 [facility] Influenza Virus 2021-06-11 Completed Universit y of Vaccine 00:00:00 [facility] Influenza Virus 2021-06-11 Completed Universit y of Vaccine 00:00:00 [facility] Influenza Virus 2021-06-11 Completed Universit y of Vaccine 00:00:00 [facility] Influenza Virus 2021-06-11 Completed Universit y of Vaccine 00:00:00 [facility] Influenza Virus 2021-06-11 Completed Universit y of Vaccine 00:00:00 [facility] Influenza Virus 2021-06-11 Completed Universit y of Vaccine 00:00:00 [facility] Influenza Virus 2021-06-11 Completed Universit y of Vaccine 00:00:00 [facility] Influenza Virus 2021-06-11 Completed Universit y of Vaccine 00:00:00 [facility] Influenza Virus 2021-06-11 Completed Universit y of Vaccine 00:00:00 [facility] Influenza Virus 2021-06-11 Completed Universit y of Vaccine 00:00:00 [facility] Influenza Virus 2021-06-11 Completed Universit y of Vaccine Quad .5 mL 00:00:00 [facility] [place] [facility] 6+ MO Branch Influenza Virus 2021-06-11 Completed Universit y of Vaccine 00:00:00 [facility] Influenza Virus 2021-06-11 Completed Universit y of Vaccine Quad .5 mL 00:00:00 [facility] IM 6+ MO Branch Influenza Virus 2021-06-11 Completed Universit y of Vaccine 00:00:00 [facility] Influenza Virus 2021-06-11 Completed Universit y of Vaccine Quad .5 mL 00:00:00 [facility] IM 6+ MO Branch Influenza Virus 2021-06-11 Completed Universit y of Vaccine 00:00:00 [facility] Influenza Virus 2021-06-11 Completed Universit y of Vaccine Quad .5 mL 00:00:00 [facility] IM 6+ MO Branch Influenza Virus 2021-06-11 Completed Universit y of Vaccine 00:00:00 [facility] Influenza Virus 2021-06-11 Completed Universit y of Vaccine Quad .5 mL 00:00:00 [place] [facility] 6+ MO Branch Influenza Virus 2021-06-11 Completed Universit y of Vaccine 00:00:00 [facility] Influenza Virus 2021-06-11 Completed Universit y of Vaccine Quad .5 mL 00:00:00 [place] [facility] 6+ MO Branch Influenza Virus 2021-06-11 Completed Universit y of Vaccine 00:00:00 [facility] Influenza Virus 2021-06-11 Completed Universit y of Vaccine Quad .5 mL 00:00:00 [place] [facility] 6+ MO Branch Influenza Virus 2021-06-11 Completed Universit y of Vaccine 00:00:00 [facility] Influenza Virus 2021-06-11 Completed Universit y of Vaccine Quad .5 mL 00:00:00 [facility] 6+ MO Branch Influenza Virus 2021-06-11 Completed Universit y of Vaccine 00:00:00 [facility] Influenza Virus 2021-06-11 Completed Universit y of Vaccine Quad .5 mL 00:00:00 [facility] 6+ MO Branch Influenza Virus 2021-06-11 Completed Universit y of Vaccine 00:00:00 [facility] Influenza Virus 2021-06-11 Completed Universit y of Vaccine Quad .5 mL 00:00:00 [facility] 6+ MO Branch Influenza Virus 2021-06-11 Completed Universit y of Vaccine 00:00:00 [facility] Influenza Virus 2021-06-11 Completed Universit y of Vaccine Quad .5 mL 00:00:00 [facility] 6+ MO Branch Influenza Virus 2021-06-11 Completed Universit y of Vaccine 00:00:00 [facility] Influenza Virus 2021-06-11 Completed Universit y of Vaccine Quad .5 mL 00:00:00 [facility] 6+ MO Branch Influenza Virus 2021-06-11 Completed Universit y of Vaccine 00:00:00 [facility] Influenza Virus 2021-06-11 Completed Universit y of Vaccine Quad .5 mL 00:00:00 [facility] 6+ MO Branch Influenza Virus 2020-05-19 Completed Universit y of Vaccine 00:00:00 [facility] Influenza Virus 2020-05-19 Completed Universit y of Vaccine 00:00:00 [facility] Influenza Virus 2020-05-19 Completed Universit y of Vaccine 00:00:00 [facility] Influenza Virus 2020-05-19 Completed Universit y of Vaccine 00:00:00 [facility] Influenza Virus 2020-05-19 Completed Universit y of Vaccine 00:00:00 [facility] Influenza Virus 2020-05-19 Completed Universit y of Vaccine 00:00:00 [facility] Influenza Virus 2020-05-19 Completed Universit y of Vaccine 00:00:00 [facility] Influenza Virus 2020-05-19 Completed Universit y of Vaccine 00:00:00 [facility] Influenza Virus 2020-05-19 Completed Universit y of Vaccine 00:00:00 [facility] Influenza Virus 2020-05-19 Completed Universit y of Vaccine 00:00:00 [facility] Influenza Virus 2020-05-19 Completed Universit y of Vaccine 00:00:00 [facility] Influenza Virus 2020-05-19 Completed Universit y of Vaccine 00:00:00 [facility] Influenza Virus 2020-05-19 Completed Universit y of Vaccine 00:00:00 [facility] Influenza Virus 2020-05-19 Completed Universit y of Vaccine 00:00:00 [facility] Influenza Virus 2020-05-19 Completed [facility]it y of Vaccine 00:00:00 [facility] Influenza Virus 2020-05-19 Completed Universit y of Vaccine 00:00:00 [facility] Influenza Virus 2020-05-19 Completed Universit y of Vaccine 00:00:00 [facility] Influenza Virus 2020-05-19 Completed Universit y of Vaccine 00:00:00 [facility] Influenza Virus 2020-05-19 Completed Universit y of Vaccine 00:00:00 [facility] Influenza Virus 2020-05-19 Completed Universit y of Vaccine 00:00:00 [facility] Influenza Virus 2020-05-19 Completed Universit y of Vaccine 00:00:00 [facility] Influenza Virus 2020-05-19 Completed Universit y of Vaccine 00:00:00 [facility] Influenza Virus 2020-05-19 Completed Universit y of Vaccine 00:00:00 [facility] Influenza Virus 2020-05-19 Completed Universit y of Vaccine 00:00:00 [facility] Influenza Virus 2020-05-19 Completed Universit y of Vaccine 00:00:00 [facility] Influenza Virus 2020-05-19 Completed Universit y of Vaccine 00:00:00 [facility] Influenza Virus 2020-05-19 Completed Universit y of Vaccine 00:00:00 [facility] Influenza Virus 2020-05-19 Completed Universit y of Vaccine 00:00:00 [facility] Influenza Virus 2020-05-19 Completed Universit y of Vaccine 00:00:00 [facility] Influenza Virus 2020-05-19 Completed Universit y of Vaccine 00:00:00 [facility] Influenza Virus 2020-05-19 Completed Universit y of Vaccine 00:00:00 [facility] Influenza Virus 2020-05-19 Completed Universit y of Vaccine 00:00:00 [facility] Influenza Virus 2020-05-19 Completed Universit y of Vaccine 00:00:00 [facility] Influenza Virus 2020-05-19 Completed Universit y of Vaccine 00:00:00 [facility] Branch Influenza Virus 2020-05-19 Completed Universit y of Vaccine 00:00:00 [facility] Branch Influenza Virus 2020-05-19 Completed Universit y of Vaccine 00:00:00 [facility] Influenza Virus 2020-05-19 Completed Universit y of Vaccine 00:00:00 [facility] Branch Influenza Virus 2020-05-19 Completed Universit y of Vaccine 00:00:00 [facility] Branch Influenza Virus 2020-05-19 Completed Universit y of Vaccine 00:00:00 [facility] Influenza Virus 2020-05-19 Completed Universit y of Vaccine 00:00:00 [facility] Influenza Virus 2020-05-19 Completed Universit y of Vaccine 00:00:00 [facility] Influenza Virus 2020-05-19 Completed Universit y of Vaccine 00:00:00 [facility] Influenza Virus 2020-05-19 Completed Universit y of Vaccine 00:00:00 [facility] Influenza Virus 2020-05-19 Completed [facility]it y of Vaccine 00:00:00 [facility] Influenza Virus 2020-05-19 Completed [facility]it y of Vaccine 00:00:00 [facility] Influenza Virus 2020-05-19 Completed [facility]it y of Vaccine 00:00:00 [facility] Influenza Virus 2020-05-19 Completed [facility]it y of Vaccine 00:00:00 [facility] Influenza Virus 2020-05-19 Completed [facility] Vaccine 00:00:00 [facility] Influenza Virus 2020-05-19 Completed [facility]it y of Vaccine 00:00:00 [facility] Influenza Virus 2020-05-19 Completed Universit y of Vaccine 00:00:00 [facility] Influenza Virus 2020-05-19 Completed Universit y of Vaccine 00:00:00 [facility] Influenza Virus 2020-05-19 Completed [facility]it y of Vaccine 00:00:00 [facility] Influenza Virus 2020-05-19 Completed [facility]it y of Vaccine 00:00:00 [facility] Influenza Virus 2020-05-19 Completed [facility]it y of Vaccine 00:00:00 [facility] Influenza Virus 2020-05-19 Completed Universit y of Vaccine 00:00:00 [facility] Influenza Virus 2020-05-19 Completed Universit y of Vaccine 00:00:00 [facility] Influenza Virus 2020-05-19 Completed [facility]it y of Vaccine 00:00:00 [facility] Influenza Virus 2020-05-19 Completed Universit y of Vaccine 00:00:00 [facility] Influenza Virus 2020-05-19 Completed [facility]it y of Vaccine 00:00:00 [facility] Influenza Virus 2020-05-19 Completed Universit y of Vaccine 00:00:00 [facility] Influenza Virus 2020-05-16 Completed Universit y of [...] Universit y of Vaccine Recomb Quad 00:00:00 [facility] IM, Preserv and ABX Bran h Free 18-64 YRS TDAP (ADACEL) 2019-05-21 Completed University of VACCINE 00:00:00 [facility] TDAP (ADACEL) 2019-05-21 Completed University of VACCINE 00:00:00 [facility] TDAP (ADACEL) 2019-05-21 Completed University of VACCINE 00:00:00 [facility] TDAP (ADACEL) 2019-05-21 Completed University of VACCINE 00:00:00 [facility] TDAP (ADACEL) 2019-05-21 Completed University of VACCINE 00:00:00 [facility] TDAP (ADACEL) 2019-05-21 Completed University of VACCINE 00:00:00 [facility] TDAP (ADACEL) 2019-05-21 Completed University of VACCINE 00:00:00 [facility] TDAP (ADACEL) 2019-05-21 Completed University of VACCINE 00:00:00 [facility] TDAP (ADACEL) 2019-05-21 Completed University of VACCINE 00:00:00 [facility] TDAP (ADACEL) 2019-05-21 Completed University of VACCINE 00:00:00 [facility] TDAP (ADACEL) 2019-05-21 Completed University of VACCINE 00:00:00 [facility] TDAP (ADACEL) 2019-05-21 Completed University of VACCINE 00:00:00 [facility] TDAP (ADACEL) 2019-05-21 Completed University of VACCINE 00:00:00 [facility] TDAP (ADACEL) 2019-05-21 Completed University of VACCINE 00:00:00 [facility] TDAP (ADACEL) 2019-05-21 Completed University of VACCINE 00:00:00 [facility] TDAP (ADACEL) 2019-05-21 Completed University of VACCINE 00:00:00 [facility] TDAP (ADACEL) 2019-05-21 Completed University of VACCINE 00:00:00 [facility] TDAP (ADACEL) 2019-05-21 Completed University of VACCINE 00:00:00 [facility] TDAP (ADACEL) 2019-05-21 Completed University of VACCINE 00:00:00 [facility] Branch TDAP (ADACEL) 2019-05-21 Completed University of VACCINE 00:00:00 [facility] TDAP (ADACEL) 2019-05-21 Completed University of VACCINE 00:00:00 [facility] TDAP (ADACEL) 2019-05-21 Completed University of VACCINE 00:00:00 [facility] TDAP (ADACEL) 2019-05-21 Completed University of VACCINE 00:00:00 [facility] TDAP (ADACEL) 2019-05-21 Completed University of VACCINE 00:00:00 [facility] TDAP (ADACEL) 2019-05-21 Completed University of VACCINE 00:00:00 [facility] TDAP (ADACEL) 2019-05-21 Completed University of VACCINE 00:00:00 [facility] TDAP (ADACEL) 2019-05-21 Completed University of VACCINE 00:00:00 [facility] TDAP (ADACEL) 2019-05-21 Completed University of VACCINE 00:00:00 [facility] TDAP (ADACEL) 2019-05-21 Completed University of VACCINE 00:00:00 [facility] TDAP (ADACEL) 2019-05-21 Completed University of VACCINE 00:00:00 [facility] TDAP (ADACEL) 2019-05-21 Completed University of VACCINE 00:00:00 [facility] TDAP (ADACEL) 2019-05-21 Completed University of VACCINE 00:00:00 [facility] TDAP (ADACEL) 2019-05-21 Completed University of VACCINE 00:00:00 [facility] TDAP (ADACEL) 2019-05-21 Completed University of VACCINE 00:00:00 [facility] TDAP (ADACEL) 2019-05-21 Completed University of VACCINE 00:00:00 [facility] TDAP (ADACEL) 2019-05-21 Completed University of VACCINE 00:00:00 [facility] TDAP (ADACEL) 2019-05-21 Completed University of VACCINE 00:00:00 [facility] TDAP (ADACEL) 2019-05-21 Completed University of VACCINE 00:00:00 [facility] TDAP (ADACEL) 2019-05-21 Completed University of VACCINE 00:00:00 [facility] TDAP (ADACEL) 2019-05-21 Completed University of VACCINE 00:00:00 [facility] TDAP (ADACEL) 2019-05-21 Completed University of VACCINE 00:00:00 [facility] TDAP (ADACEL) 2019-05-21 Completed University of VACCINE 00:00:00 [facility] TDAP (ADACEL) 2019-05-21 Completed University of VACCINE 00:00:00 [facility] TDAP (ADACEL) 2019-05-21 Completed University of VACCINE 00:00:00 [facility] TDAP (ADACEL) 2019-05-21 Completed University of VACCINE 00:00:00 [facility] TDAP (ADACEL) 2019-05-21 Completed University of VACCINE 00:00:00 [facility] TDAP (ADACEL) 2019-05-21 Completed University of VACCINE 00:00:00 [facility] TDAP (ADACEL) 2019-05-21 Completed University of VACCINE 00:00:00 [facility] TDAP (ADACEL) 2019-05-21 Completed University of VACCINE 00:00:00 [facility] TDAP (ADACEL) 2019-05-21 Completed University of VACCINE 00:00:00 [facility] TDAP (ADACEL) 2019-05-21 Completed University of VACCINE 00:00:00 [facility] TDAP (ADACEL) 2019-05-21 Completed University of VACCINE 00:00:00 [facility] TDAP (ADACEL) 2019-05-21 Completed University of VACCINE 00:00:00 [facility] TDAP (ADACEL) 2019-05-21 Completed University of VACCINE 00:00:00 [facility] TDAP (ADACEL) 2019-05-21 Completed University of VACCINE 00:00:00 [facility] TDAP (ADACEL) 2019-05-21 Completed University of VACCINE 00:00:00 [facility] TDAP (ADACEL) 2019-05-21 Completed University of VACCINE 00:00:00 [facility] TDAP (ADACEL) 2019-05-21 Completed University of VACCINE 00:00:00 [facility] TDAP (ADACEL) 2019-05-21 Completed University of VACCINE 00:00:00 [facility] TDAP (ADACEL) 2019-05-21 Completed University of VACCINE 00:00:00 [facility] Influenza Virus 2019-02-06 Completed Universit y of Vaccine Quad .5 mL 00:00:00 [facility] 6+ MO Branch Influenza Virus 2019-02-06 Completed Universit y of Vaccine Quad .5 mL 00:00:00 [facility] IM 6+ MO Branch Influenza Virus 2019-02-06 Completed Universit y of Vaccine Quad .5 mL 00:00:00 [facility] 6+ MO Branch Influenza Virus 2019-02-06 Completed Universit y of Vaccine Quad .5 mL 00:00:00 [facility] 6+ MO Branch Influenza Virus 2019-02-06 Completed Universit y of Vaccine Quad .5 mL 00:00:00 [facility] 6+ MO Branch Influenza Virus [...] y of Vaccine Quad .5 mL 00:00:00 [facility] 6+ MO Branch Influenza Virus 2019-02-06 Completed Universit y of Vaccine Quad .5 mL 00:00:00 [facility] 6+ MO Branch Influenza Virus 2019-02-06 Completed [facility]it y of Vaccine Quad .5 mL 00:00:00 [facility] 6+ MO Branch Influenza Virus 2019-02-06 Completed [facility]it y of Vaccine Quad .5 mL 00:00:00 [facility] 6+ MO Branch Influenza Virus 2019-02-06 Completed [facility]it y of Vaccine Quad .5 mL 00:00:00 [facility] 6+ MO Branch Influenza Virus 2019-02-06 Completed [facility]it y of Vaccine Quad .5 mL 00:00:00 [facility] 6+ MO Branch Influenza Virus 2019-02-06 Completed [facility]it y of Vaccine Quad .5 mL 00:00:00 [facility] 6+ MO Branch Influenza Virus 2019-02-06 Completed [facility]it y of Vaccine Quad .5 mL 00:00:00 [facility] 6+ MO Branch Influenza Virus 2019-02-06 Completed [facility]it y of Vaccine Quad .5 mL 00:00:00 [facility] 6+ MO Branch Influenza Virus 2019-02-06 Completed [facility]it y of Vaccine Quad .5 mL 00:00:00 [facility] 6+ MO Branch Influenza Virus 2019-02-06 Completed [facility]it y of Vaccine Quad .5 mL 00:00:00 [facility] 6+ MO Branch Influenza Virus 2019-02-06 Completed [facility]it y of Vaccine Quad .5 mL 00:00:00 [facility] 6+ MO Branch Influenza Virus 2019-02-06 Completed [facility]it y of Vaccine Quad .5 mL 00:00:00 [facility] 6+ MO Branch Influenza Virus 2019-02-06 Completed Universit y of Vaccine Quad .5 mL 00:00:00 [facility] 6+ MO Branch Influenza Virus 2019-02-06 Completed [facility]it y of Vaccine Quad .5 mL 00:00:00 [facility] 6+ MO Branch Influenza Virus 2019-02-06 Completed Universit y of Vaccine Quad .5 mL 00:00:00 [facility] 6+ MO Branch Influenza Virus 2019-02-06 Completed Universit y of Vaccine Quad .5 mL 00:00:00 [facility] 6+ MO Branch Influenza Virus 2019-02-06 Completed [facility]it y of Vaccine Quad .5 mL 00:00:00 [facility] 6+ MO Branch Influenza Virus 2019-02-06 Completed [facility]it y of Vaccine Quad .5 mL 00:00:00 [facility] 6+ MO Branch Influenza Virus 2019-02-06 Completed Universit y of Vaccine Quad .5 mL 00:00:00 [facility] 6+ MO Branch Influenza Virus 2019-02-06 Completed Universit y of Vaccine Quad .5 mL 00:00:00 [facility] 6+ MO Branch Influenza Virus 2019-02-06 Completed Universit y of Vaccine Quad .5 mL 00:00:00 [facility] 6+ MO Branch Influenza Virus 2019-02-06 Completed Universit y of Vaccine Quad .5 mL 00:00:00 [facility] 6+ MO Branch Influenza Virus 2019-02-06 Completed Universit y of Vaccine Quad .5 mL 00:00:00 [facility] 6+ MO Branch Influenza Virus 2019-02-06 Completed Universit y of Vaccine Quad .5 mL 00:00:00 [facility] 6+ MO Branch Influenza Virus 2019-02-06 Completed Universit y of Vaccine Quad .5 mL 00:00:00 [facility] 6+ MO Branch Influenza Virus 2019-02-06 Completed [facility]it y of Vaccine Quad .5 mL 00:00:00 [facility] 6+ MO Branch Influenza Virus 2019-02-06 Completed Universit y of Vaccine Quad .5 mL 00:00:00 [facility] 6+ MO Branch Influenza Virus 2019-02-06 Completed Universit y of Vaccine Quad .5 mL 00:00:00 [facility] 6+ MO Branch Influenza Virus [...] y of Vaccine Quad .5 mL 00:00:00 [facility] 6+ MO Branch Influenza Virus 2019-02-06 Completed Universit y of Vaccine Quad .5 mL 00:00:00 [facility] 6+ MO Branch Influenza Virus 2019-02-06 Completed Universit y of Vaccine Quad .5 mL 00:00:00 [facility] 6+ MO Branch Influenza Virus 2019-02-06 Completed Universit y of Vaccine Quad .5 mL 00:00:00 [facility] 6+ MO Branch Influenza Virus 2019-02-06 Completed Universit y of Vaccine Quad .5 mL 00:00:00 [facility] 6+ MO Branch Influenza Virus 2019-02-06 [...] y of Vaccine Quad .5 mL 00:00:00 [facility] 6+ MO Branch Influenza Virus [...] y of Vaccine Quad .5 mL 00:00:00 [facility] 6+ MO Branch Influenza Virus 2019-02-06 Completed Universit y of Vaccine Quad .5 mL 00:00:00 [facility] 6+ MO Branch Vital Signs Vital Name Observation Time Observation Value Comments Source Systolic blood 2022-11-21 21:40:00 122 mm[Hg] Univer sity of pressure [facility] Diastolic blood 2022-11-21 21:40:00 90 mm[Hg] Unive rsity of pressure [facility] Heart rate 2022-11-21 21:40:00 92 /min Universi ty of [facility] [place] Respiratory rate 2022-11-21 21:40:00 16 /min [facility] Oxygen saturation in 2022-11-21 21:40:00 99 /min University of Arterial blood by [facility] Pulse oximetry Branch Body temperature 2022-11-21 18:07:00 37.28 Irene [facility] Body weight 2022-11-21 18:07:00 [facility] BMI 2022-11-21 18:07:00 28.34 [facility] Systolic blood 2022-09-05 17:22:00 139 mm[Hg] Univer sity of pressure [facility] Diastolic blood 2022-09-05 17:22:00 91 mm[Hg] Unive rsity of pressure [facility] Heart rate 2022-09-05 17:22:00 120 /min Universi ty of [facility] Respiratory rate 2022-09-05 17:22:00 18 /min Univ ersity of [facility] Oxygen saturation in 2022-09-05 17:22:00 99 /min University of Arterial blood by [facility] Pulse oximetry Branch Body temperature 2022-09-05 13:43:00 37.11 Irene Univ ersity of [facility] Body weight 2022-09-05 13:43:00 68.04 kg Universi ty of [facility] BMI 2022-09-05 13:43:00 28.34 kg/m2 [facility] ty [facility] Systolic blood 2022-08-01 00:49:00 138 mm[Hg] Univer sity of pressure [facility] Diastolic blood 2022-08-01 00:49:00 104 mm[Hg] Unive rsity of pressure [facility] Heart rate 2022-08-01 00:49:00 108 /min Universi ty of [facility] Respiratory rate 2022-08-01 00:49:00 18 /min Univ ersity of [facility] Oxygen saturation in 2022-08-01 00:49:00 99 /min University of Arterial blood by [facility] Pulse oximetry Branch Body temperature 2022-07-31 22:52:00 37.11 Irene Univ ersity of [facility] Body height 2022-07-31 22:52:00 154.9 cm Universi ty of [facility] Body weight 2022-07-31 22:52:00 68.04 kg [facility] BMI 2022-07-31 22:52:00 28.34 kg/m2 [facility] Systolic blood 2022-07-15 15:32:00 130 mm[Hg] Univer sity of pressure [facility] Diastolic blood 2022-07-15 15:32:00 90 mm[Hg] Unive rsity of pressure [facility] Heart rate 2022-07-15 15:31:00 81 /min Universi ty of [facility] Body temperature 2022-07-15 15:31:00 36.94 Irene Univ ersity of [facility] Respiratory rate 2022-07-15 15:31:00 16 /min Univ ersity of [facility] Body weight 2022-07-15 15:31:00 68.493 kg [facility] BMI 2022-07-15 15:31:00 28.53 kg/m2 [facility] Oxygen saturation in 2022-07-15 15:31:00 99 /min [facility] blood by [facility] Systolic blood 2022-06-23 15:26:00 111 mm[Hg] Univer sity of pressure [facility] Diastolic blood 2022-06-23 15:26:00 75 mm[Hg] Unive rsity of pressure [facility] Heart rate 2022-06-23 15:26:00 108 /min [facility]i ty of [facility] Body temperature 2022-06-23 15:26:00 36.83 Irene Univ ersity [facility] Respiratory rate 2022-06-23 15:26:00 18 /min Univ ersity of [facility] Body height 2022-06-23 15:26:00 154.9 cm Universi ty [facility] Body weight 2022-06-23 15:26:00 71.385 kg [facility] BMI 2022-06-23 15:26:00 29.74 kg/m2 [facility] Oxygen saturation in 2022-06-23 15:26:00 99 /min University of Arterial blood by [facility] Pulse oximetry Branch Systolic blood 2022-05-05 22:05:00 126 mm[Hg] Univer sity of pressure [facility] Diastolic blood 2022-05-05 22:05:00 75 mm[Hg] Unive rsity of pressure [facility] Heart rate 2022-05-05 22:05:00 99 /min Universi ty of [facility] Respiratory rate 2022-05-05 22:05:00 16 /min Univ ersity of [facility] Oxygen saturation in 2022-05-05 22:05:00 99 /min University of Arterial blood by [facility] Pulse oximetry Branch Body temperature 2022-05-05 18:24:00 37.11 Irene Univ ersity of [facility] Body height 2022-05-05 18:24:00 154.9 cm Universi ty of [facility] Body weight 2022-05-05 18:24:00 54.432 kg [facility]i ty of [facility] BMI 2022-05-05 18:24:00 22.67 kg/m2 [facility] Systolic blood 2022-04-26 14:28:00 135 mm[Hg] Univer sity of pressure [facility] Diastolic blood 2022-04-26 14:28:00 95 mm[Hg] Unive rsity of pressure [facility] Heart rate 2022-04-26 14:28:00 93 /min Universi ty of [facility] Body temperature 2022-04-26 14:28:00 36.89 Irene Univ ersity of [facility] Respiratory rate 2022-04-26 14:28:00 18 /min Univ ersity of [facility] Body height 2022-04-26 14:28:00 154.9 cm Universi ty [facility] Body weight 2022-04-26 14:28:00 54.432 kg Universi ty of [facility] BMI 2022-04-26 14:28:00 22.67 kg/m2 [facility] ty of [facility] Oxygen saturation in 2022-04-26 14:28:00 100 /min [facility] of Arterial blood by [facility] Pulse oximetry Branch Systolic blood 2022-04-26 00:21:00 151 mm[Hg] Univer sity of pressure [facility] Diastolic blood 2022-04-26 00:21:00 98 mm[Hg] Unive rsity of pressure [facility] Heart rate 2022-04-26 00:21:00 98 /min Universi ty [facility] Body temperature 2022-04-26 00:21:00 36.72 Irene Univ ersity [facility] Respiratory rate 2022-04-26 00:21:00 18 /min [facility] [place] [facility] Body height 2022-04-26 00:21:00 154.9 cm [facility] [place] [facility] Body weight 2022-04-26 00:21:00 54.432 kg [facility] [place] [facility] BMI 2022-04-26 00:21:00 22.67 kg/m2 [facility] [place] [facility] Oxygen saturation in 2022-04-26 00:21:00 100 /min [facility] by [place] [facility] Pulse oximetry Branch Systolic blood 2022-04-09 14:39:00 122 mm[Hg] [facility] [place] [facility] Diastolic blood 2022-04-09 14:39:00 84 mm[Hg] [facility] [place] [facility] Heart rate 2022-04-09 14:39:00 96 /min [facility] [place] [facility] Body height 2022-04-09 14:39:00 154.9 cm [facility] [place] [facility] Body weight 2022-04-09 14:39:00 60.328 kg [facility] [place] [facility] BMI 2022-04-09 14:39:00 25.13 kg/m2 [facility] [place] [facility] Oxygen saturation in 2022-04-09 14:39:00 98 /min [facility] Arterial blood by [facility] Pulse oximetry Branch Systolic blood 2022-04-07 22:43:36 [...] /min [facility] Arterial blood by [facility] Pulse oximetry Branch Body temperature 2022-04-07 19:41:00 37.17 Irene [facility] [place] [facility] Body height 2022-04-07 19:41:00 154.9 cm [facility] [place] [facility] Body weight 2022-04-07 19:41:00 60.328 kg [facility] [place] [facility] BMI 2022-04-07 19:41:00 25.13 kg/m2 [facility] [place] [facility] Systolic blood 2022-03-24 19:00:00 125 mm[Hg] [facility] [place] [facility] Diastolic blood 2022-03-24 19:00:00 86 mm[Hg] [facility] [place] [facility] Heart rate 2022-03-24 19:00:00 93 /min [facility] [place] [facility] Respiratory rate 2022-03-24 19:00:00 17 /min [facility] [place] [facility] Oxygen saturation in 2022-03-24 19:00:00 97 /min [facility] Arterial blood by [facility] Pulse oximetry Branch Body temperature 2022-03-24 13:33:00 36.78 Irene [facility] [place] [facility] Systolic blood 2022-03-15 19:23:00 128 mm[Hg] [facility] [place] [facility] Diastolic blood 2022-03-15 19:23:00 89 mm[Hg] [facility] [place] [facility] Heart rate 2022-03-15 19:23:00 104 /min [facility] [place] [facility] Body weight 2022-03-15 19:23:00 60.328 kg [facility] [place] [facility] BMI 2022-03-15 19:23:00 25.13 kg/m2 [facility] [place] [facility] Oxygen saturation in 2022-03-15 19:23:00 98 /min [facility] [place] [facility] Pulse oximetry Branch Systolic blood 2022-03-15 15:02:00 115 mm[Hg] [facility] [place] [facility] Diastolic blood 2022-03-15 15:02:00 70 mm[Hg] [facility] [place] [facility] Heart rate 2022-03-15 15:02:00 85 /min [facility] [place] [facility] Respiratory rate 2022-03-15 15:02:00 20 /min [facility] [place] [facility] Oxygen saturation in 2022-03-15 15:02:00 99 /min [facility] [place] [facility] [facility] Pulse oximetry Branch Body temperature 2022-03-15 13:38:00 36.94 Irene [facility] [place] [facility] Body height 2022-03-15 13:38:00 154.9 cm [facility] [place] [facility] Body weight 2022-03-15 13:38:00 54.432 kg [facility] [place] [facility] BMI 2022-03-15 13:38:00 22.67 kg/m2 [facility] [place] [facility] Systolic blood 2022-03-11 16:30:00 124 mm[Hg] [facility] [place] [facility] Diastolic blood 2022-03-11 16:30:00 88 mm[Hg] [facility] [place] [facility] Heart rate 2022-03-11 16:30:00 93 /min [facility] [place] [facility] Body temperature 2022-03-11 16:30:00 36.67 Irene [facility] [place] [facility] Respiratory rate 2022-03-11 16:30:00 14 /min [facility] [place] [facility] Oxygen saturation in 2022-03-11 16:30:00 100 /min [facility] [place] [facility] Pulse oximetry Branch Body height 2022-03-11 14:19:00 154.9 cm [facility] [place] [facility] Body weight 2022-03-11 14:19:00 58.968 kg [facility] [place] [facility] BMI 2022-03-11 14:19:00 24.56 kg/m2 [facility] [place] [facility] Systolic blood 2022-02-27 14:14:00 140 mm[Hg] [facility] [place] [facility] Diastolic blood 2022-02-27 14:14:00 90 mm[Hg] [facility] [place] [facility] Heart rate 2022-02-27 14:14:00 103 /min [facility] [place] [facility] Body height 2022-02-27 14:14:00 154.9 cm [facility] [place] [facility] Body weight 2022-02-27 14:14:00 59.194 kg [facility] [place] [facility] BMI 2022-02-27 14:14:00 24.66 kg/m2 [facility] [place] [facility] Oxygen saturation in 2022-02-27 14:14:00 100 /min [facility] Arterial blood by [facility] Pulse oximetry Branch Systolic blood 2022-02-27 13:19:00 131 mm[Hg] [facility] [place] [facility] Diastolic blood 2022-02-27 13:19:00 86 mm[Hg] [facility] [place] [facility] Heart rate 2022-02-27 13:19:00 102 /min [facility] [place] [facility] Body temperature 2022-02-27 13:19:00 36.33 Irene [facility] [place] [facility] Body height 2022-02-27 13:19:00 154.9 cm [facility] [place] [facility] Body weight 2022-02-27 13:19:00 58.968 kg [facility] [place] [facility] BMI 2022-02-27 13:19:00 24.56 kg/m2 [facility] [place] [facility] Oxygen saturation in 2022-02-27 13:19:00 99 /min [facility]terial blood by [facility] yessi Pulse oximetry Branch Systolic blood 2022-02-21 08:06:00 135 mm[Hg] [facility] [place] [facility] Diastolic blood 2022-02-21 08:06:00 97 mm[Hg] [facility] [place] [facility] Heart rate 2022-02-21 08:06:00 98 /min [facility] [place] [facility] Respiratory rate 2022-02-21 08:06:00 16 /min [facility] [place] [facility] Oxygen saturation in 2022-02-21 08:06:00 97 /min [facility] Arterial blood by [facility] Pulse oximetry Branch Body temperature 2022-02-21 06:16:00 36.94 Irene [facility] [place] [facility] Body height 2022-02-21 06:16:00 154.9 cm [facility] [place] [facility] Body weight 2022-02-21 06:16:00 60.963 kg [facility] [place] [facility] BMI 2022-02-21 06:16:00 25.39 kg/m2 [facility] [place] [facility] Systolic blood 2022 20:08:00 136 mm[Hg] [facility] [place] [facility] Diastolic blood 2022 20:08:00 96 mm[Hg] [facility] [place] [facility] Heart rate 2022 20:08:00 100 /min [facility] [place] [facility] Respiratory rate 2022 20:08:00 20 /min [facility] [place] [facility] Oxygen saturation in 2022 20:08:00 98 /min [facility] Arterial blood by [facility] Pulse oximetry Branch Body temperature 2022 16:56:00 37.06 Irene [facility] [place] [facility] Body weight 2022 16:56:00 54.432 kg [facility] [place] [facility] BMI 2022 16:56:00 22.67 kg/m2 [facility] [place] [facility] Systolic blood 2022-02-05 14:31:00 128 mm[Hg] [facility] [place] [facility] Diastolic blood 2022-02-05 14:31:00 84 mm[Hg] [facility] [place] [facility] Heart rate 2022-02-05 14:31:00 86 /min [facility] [place] [facility] Body temperature 2022-02-05 14:31:00 37.89 Irene [facility] [place] [facility] Respiratory rate 2022-02-05 14:31:00 18 /min [facility] [place] [facility] Body height 2022-02-05 14:31:00 154.9 cm [facility] [place] [facility] Body weight 2022-02-05 14:31:00 54.432 kg [facility] [place] [facility] BMI 2022-02-05 14:31:00 22.67 kg/m2 [facility] [place] [facility] Oxygen saturation in 2022-02-05 14:31:00 98 /min [facility] Arterial blood by [facility] Pulse oximetry Branch Systolic blood 2022-01-18 14:50:00 144 mm[Hg] [facility] [place] [facility] Diastolic blood 2022-01-18 14:50:00 92 mm[Hg] [facility] [place] [facility] Heart rate 2022-01-18 14:50:00 94 /min [facility] [place] [facility] Respiratory rate 2022-01-18 14:50:00 20 /min [facility] [place] [facility] Oxygen saturation in 2022-01-18 14:50:00 99 /min [facility] Arterial blood by [facility] Pulse oximetry Branch Body weight 2022-01-18 10:18:00 54.432 kg [facility] [place] [facility] BMI 2022-01-18 10:18:00 22.67 kg/m2 [facility] [place] [facility] Body temperature 2022-01-18 10:15:00 36.72 Irene [facility] [place] [facility] Systolic blood 2022-01-15 15:48:26 125 mm[Hg] [facility] [place] [facility] Diastolic blood 2022-01-15 15:48:26 85 mm[Hg] [facility] [place] [facility] Heart rate 2022-01-15 15:48:26 95 /min [facility] [place] [facility] Respiratory rate 2022-01-15 15:48:26 18 /min [facility] [place] [facility] Oxygen saturation in 2022-01-15 15:48:26 98 /min [facility] Arterial blood by [facility] Pulse oximetry Branch Body temperature 2022-01-15 13:32:00 37.11 Irene [facility] [place] [facility] Body height 2022-01-15 13:32:00 154.9 cm [facility] [place] [facility] Body weight 2022-01-15 13:32:00 54.432 kg [facility] [place] [facility] [place] BMI 2022-01-15 13:32:00 22.67 kg/m2 [facility] [place] [facility] Systolic blood 2022-01-09 00:37:11 127 mm[Hg] Univer sity of pressure [facility] Diastolic blood 2022-01-09 00:37:11 90 mm[Hg] Unive rsity of pressure [facility] Heart rate 2022-01-09 00:37:11 94 /min [facility] of [facility] Body temperature 2022-01-09 00:37:11 37.11 Irene [facility] Respiratory rate 2022-01-09 00:37:11 16 /min [facility] Oxygen saturation in 2022-01-09 00:37:11 97 /min [facility] Arterial blood by [facility] Pulse oximetry Branch Body height 2022-01-08 23:03:00 154.9 cm [facility] Body weight 2022-01-08 23:03:00 58.06 kg [facility] [place] [facility] [place] BMI 2022-01-08 23:03:00 24.19 kg/m2 [facility] Systolic blood 2021-12-12 18:00:00 126 mm[Hg] Univer [facility]ity of [facility] Diastolic blood 2021-12-12 18:00:00 87 mm[Hg] Unive rsity of [facility] Heart rate 2021-12-12 18:00:00 86 /min [facility]i ty of [facility] Body temperature 2021-12-12 18:00:00 36.89 Irene Univ [facility] Respiratory rate 2021-12-12 18:00:00 18 /min Univ ersity of [facility] Body height 2021-12-12 18:00:00 154.9 cm [facility]i [facility] of [facility] Body weight 2021-12-12 18:00:00 57.153 kg [facility] BMI 2021-12-12 18:00:00 23.81 kg/m2 [facility] Procedures Procedure Date / Time Performing Clinician Source Performed ASSIGNMENT OF BENEFITS 2022-11-21 19:49:02 Doctor Unassigned, No [facility] CONSENT/REFUSAL FOR 2022-11-21 18:03:25 Doctor Unassigned, No [facility] [place] [facility] Name [facility] CONSENT/REFUSAL FOR 2022-09-05 13:42:02 Doctor Unassigned, No [facility] [place] [facility] Name Medical Branch LIPASE 2022-07-31 23:13:00 Manju Newell [facility] TEST, SERUM 2022-07-31 23:13:00 [facility] MET[facility]OLIC PANEL 2022-07-31 23:13:00 Manju Newell [facility] [place] ([id number]) [facility] CBC WITH DIFF 2022-07-31 23:13:00 [facility] CONSENT/REFUSAL FOR 2022-07-31 22:49:17 Doctor [facility]igned, No [facility] XR ANKLE 3+ VW RIGHT 2022-07-15 16:00:00 Cari Kaur [facility] XR FOOT 3+ VW RIGHT 2022-07-15 16:00:00 NatashaCari draper [facility] XR FOOT 3+ VW RIGHT 2022-07-15 16:00:00 Cari Kaur [facility] PATIENT FINANCIAL 2022-07-15 15:25:53 Doctor Unassigned, No [facility] POLICY [facility] POCT MOLECULAR STREP 2022-06-23 16:06:00 Unknown, Attending [facility] ASSIGNMENT OF BENEFITS 2022-06-23 15:18:28 Doctor Unassigned, No [facility] COMP. METABOLIC PANEL 2022-05-05 19:14:00 Karon Norton [facility] ([id number]) [facility] CBC WITH DIFF 2022-05-05 19:14:00 Karon Norton [facility] POCT TEST 2022-05-05 19:00:00 Karon Norton [facility] URINALYSIS 2022-05-05 18:58:00 Karon Norton [facility] CT ABDOMEN PELVIS WO 2022-04-26 15:11:00 Zion Bridges [facility] CONTRAST [facility] COMP. METABOLIC PANEL 2022-04-26 14:49:00 Zion Bridges [facility] ([id number]) Medical [place] CBC WITH DIFF 2022-04-26 14:49:00 [facility] 2022-04-26 14:49:00 Singer [facility] POCT TEST 2022-04-26 14:45:00 Zion Bridges [facility] CONSENT/REFUSAL FOR 2022-04-26 14:22:29 Doctor Unassigned, No [facility] [place] [facility] POCT TEST 2022-04-26 01:22:00 Zion Bridges [facility] ASSIGNMENT OF BENEFITS 2022-04-26 00:54:02 Doctor Unassigned, No [facility] URINALYSIS 2022-04-26 00:45:00 Singer [facility] CONSENT/REFUSAL FOR 2022-04-26 00:16:47 Doctor Unassigned, No [facility] [place] [facility] BASIC METABOLIC PANEL 2022-04-07 22:35:00 Olamide Garvin [facility] (NA, K, CL, CO2, Medical Branch GLUCOSE, BUN, CREATININE, CA) CBC WITH DIFF 2022-04-07 22:35:00 Olamide Garvin [facility] URINALYSIS 2022-04-07 21:36:00 Olamide Garvin [facility] URINE DRUG (IMMUNOASSAY) 2022-04-07 21:36:00 Olamide Garvin [facility] [place] - COMPREHENSIVE DRUG Medical Bra nch SCREEN W/O REFLEX CONSENT/REFUSAL FOR 2022-04-07 19:29:15 Doctor Unassigned, No [facility] [place] [facility] POCT TEST 2022-03-24 14:07:00 Kellie Duncan [facility] CONSENT/REFUSAL FOR 2022-03-24 13:27:20 Doctor Unassigned, No [facility] [place] DI[facility] TREATMENT Name Medical [place] CT ABDOMEN PELVIS WO 2022-03-15 14:09:04 Anna Gould [facility] URINALYSIS 2022-03-15 13:53:00 Anna Gould [facility] POCT TEST 2022-03-15 13:52:00 Anna Gould [facility] CONSENT/REFUSAL FOR 2022-03-15 13:37:02 Doctor Unassigned, No [facility] [place] [facility]AT[facility] Name [facility] POCT TEST 2022-03-11 14:59:00 Angelica Viveros [facility] FLU VACC (), 6 2022-02-27 13:34:55 Vijay Martinez [facility] MO-64 YRS, .5ML, IM, Medical [facility] QUAD (FLUCELVAX) NOTICE OF PRIVACY 2022-02-21 06:06:30 Doctor Unassigned, No [facility] PRACTICES [facility] CONSENT/REFUSAL FOR 2022-02-21 06:03:41 Doctor Unassigned, No [facility] [place] [facility] Name [facility] XR ANKLE <3 VW RIGHT 2022 17:56:42 Maggie Hamilton [facility] CT ABDOMEN PELVIS W 2022 17:44:17 Maggie Hamilton [facility] CT TRAUMA CERVICAL SPINE 2022 17:43:49 Maggie Hamilton [facility] WO CONTRAST [facility] POCT TEST 2022 17:27:00 Maggie Hamilton [facility] COMP. METABOLIC PANEL 2022 17:17:00 Maggie Hamilton [facility] ([id number]) [facility] CBC WITH DIFF 2022 17:17:00 Maggie Hamilton [facility] CONSENT/REFUSAL FOR 2022 16:53:13 Doctor Unassigned, No [facility] [place] [facility]REAT[facility] Name [facility] US GALL BLADDER 2022-01-18 12:31:09 Bernardo Levy Rector o f [facility] US PELVIS COMPLETE WITH 2022-01-18 12:21:13 Melvin Zhao [facility] TRANSVAGINAL [facility] CT ABDOMEN PELVIS W 2022-01-18 11:20:50 Melvin Zhao [facility] CONTRAST [facility] POCT TEST 2022-01-18 10:57:00 Jayy Kenendy [facility] COVID-19 (ID NOW RAPID 2022-01-18 10:57:00 Jayy [facility] TESTING) Medical Branch URINALYSIS 2022-01-18 10:47:00 Jayy Kennedy [facility] LIPASE 2022-01-18 10:29:00 Jayy Kennedy [facility] TEST, SERUM 2022-01-18 10:29:00 [place] [facility] HEPATIC FUNCTION PANEL 2022-01-18 10:29:00 Jayy Kennedy [facility] ([id number]) (ALB,T.PRO,BILI [facility] T,BU/BC,ALT,AST,ALK PHOS) BASIC METABOLIC PANEL 2022-01-18 10:29:00 Jayy Kennedy [facility] (NA, K, CL, CO2, Medical Branch GLUCOSE, BUN, CREATININE, CA) CBC WITH DIFF 2022-01-18 10:29:00 Haroon Kennedyian Torrie [facility] CONSENT/REFUSAL FOR 2022-01-18 10:13:31 Doctor Unassigned, No [facility] [place] [facility] Name [facility] CT HEAD WO CONTRAST 2022-01-15 15:22:[address] [facility] TEST, SERUM 2022-01-15 14:36:00 Danita [facility] BASIC METABOLIC PANEL 2022-01-15 14:36:00 Danita [facility] (NA, K, CL, CO2, [facility] GLUCOSE, BUN, CREATININE, CA) CBC WITH DIFF 2022-01-15 14:36:00 Danita [facility] CONSENT/REFUSAL FOR 2022-01-15 13:28:12 Doctor Unassigned, No [facility] Name Medical Branch XR CERVICAL SPINE 4 VW 2022-01-09 00:29:16 Humberto Ochoa [facility] XR LUMBAR SPINE 4 VW 2022-01-09 00:29:16 [facility] SP[facility] THORACIC 3 VW 2022-01-09 00:29:16 Gabriela Humberto [facility] URINALYSIS 2022-01-08 23:50:00 Gabriela Humberto [facility] CONSENT/REFUSAL FOR 2022-01-08 22:51:08 Doctor Unassigned, No [facility] Name Medical Branch GALV ONLY - VAGINAL 2021-12-12 18:37:00 Prasanna Vargas [facility] PATHOGENS BY [facility] ACID TESTING URINE CULTURE 2021-12-12 18:32:00 Prasanna Vargas Rector o f [facility] POCT TEST 2021-12-12 18:31:00 Prasanna Vargas [facility] POCT URINALYSIS W/O 2021-12-12 18:31:00 Prasanna Vargas [facility] SPECIFIC GRAVITY [facility] Encounters Start End Encounter Admission Attending Care Care Encounter Source Date/Time Date/Time Type Type Clinicians Facility Department ID 2021-03-14 Emergency [facility] [id number] Univers 03:14:31 ity of [facility] 2021-03-13 Emergency [facility] [id number] Univers 20:05:20 ity of [facility] 2021-03-13 Emergency [facility] [id number] Univers 12:48:28 ity of [facility] 2021-03-13 Emergency [facility] [id number] Univers 02:43:51 ity of [facility] 2021-03-13 Emergency [facility] [id number] Univers 00:27:09 ity of [facility] 2021-03-12 Emergency [facility] [id number] Univers 22:10:36 ity of [facility] 2021-03-12 Emergency [facility] [id number] Univers 20:04:05 ity of [facility] 2021-03-12 Emergency [facility] [id number] Univers 15:25:05 ity of [facility] 2021-03-12 Emergency [facility] [id number] Univers 11:43:36 ity of [facility] 2021-03-12 Emergency [facility] [id number] Univers 07:41:37 ity of [facility] 2021-03-12 Emergency [facility] [id number] Univers 05:43:47 ity of [facility] 2021-03-12 Emergency [facility] [id number] Univers 03:43:41 ity of [facility] 2021-03-12 Emergency [facility] [id number] Univers 01:31:27 ity of [facility] 2021-03-12 Emergency X [facility] ERT [id number] Univers 00:56:44 ity of [facility] 2021-03-12 Emergency [facility] [id number] Univers 00:56:31 ity of [facility] 2021-03-11 Emergency [facility] [id number] Univers 17:47:02 ity of [facility] 2021-03-11 Emergency [facility] [id number] Univers 16:27:15 ity of [facility] 2021-03-11 Emergency [facility] [id number] Univers 12:00:58 ity of [facility] 2021-03-11 Emergency [facility] [id number] Univers 10:33:59 ity of [facility] 2021-03-11 Emergency [facility] [id number] Univers 01:36:52 ity of [facility] 2021-03-10 Emergency [facility] [id number] Univers 23:35:34 ity of [facility] 2021-03-10 Emergency [facility] [id number] Univers 19:06:16 ity of [facility] 2021-03-10 Emergency [facility] [id number] Univers 12:39:47 ity of [facility] 2021-03-10 Emergency [facility] [id number] Univers 06:54:04 ity of [facility] 2021-03-09 Outpatient P [facility] CHRIS [id number] Univers 13:25:44 ity of [facility] 2021-03-09 Outpatient P [facility] CHRIS [id number] Univers 13:08:01 ity of [facility] 2021-03-09 Outpatient P [facility] CHRIS [id number] Univers 12:37:25 ity [facility] 2021-03-09 Outpatient P [facility] HCRIS [id number] Univers 11:51:20 ity [facility] 2022-12-28 2022-12-28 Outpatient [facility] [id number] [place] 00:00:00 00:00:00 [id number] [facility] 2022-12-14 2022-12-14 Outpatient [facility] [id number] [place] 18:37:13 18:37:13 0804 [facility] 2022-12-13 2022-12-13 [facility]patient [facility] [id number] [place] 00:00:00 00:00:00 [id number] [facility] 2022-12-12 2022-12-12 Outpatient R PRASANNA VARGAS [facility] [id number] Univers 09:30:00 09:30:00 ity [facility] 2022-11-21 2022-11-21 Emergency X OSIRIS [facility] ERT [id number] Univers 13:08:00 16:45:00 MANJU [facility] 2022-11-21 2022-11-21 Emergency Zion Bridges [facility] [id number] Univers 13:08:00 16:45:00 [facility] [id number] [facility] [id number] [facility] [id number] [facility] 084 [place] 2022-11-18 2022-11-18 Outpatient [facility] [id number] [place] 10:08:00 10:08:00 [id number] F [place] 2022-11-15 2022-11-15 Outpatient R LIAN GREENE [facility] [id number] Univers 09:40:00 09:40:00 LIAN GREENE itchino [facility] 2022-11-09 2022-11-09 Outpatient [facility] [id number] [place] 15:26:18 15:26:18 [id number] F [place] 2022-11-06 2022-11-06 Outpatient R [facility] [id number] Univers 13:00:00 13:00:00 VIJAY lechuga of [facility] 2022-10-29 2022-10-29 Patient Jc [facility] 1.2.840.114 [id number] Univers 00:00:00 00:00:00 Secure Msg Lian HEALTH 350.1.13.10 ity of [place] 4.2.7.2.686 Martin as TOÑO?BLEA [id number] Wy dical MIKI 044 [facility] OFFICE [facility] 2022-10-29 2022-10-29 Patient Prasanna Vargas [facility] 1.2.116.009 [id number] Univers 00:00:00 00:00:00 Secure Msg Cam [place] 350.1.13.10 ity of [place].2.7.2.[place] [id number] Wy dical NAL 134 [facility] 2022-10-03 2022-10-03 Letter Gurjit Lim [facility] ..840.114 10 [id number] Univers 00:00:00 00:00:00 (Out) HEALTH 350.1.13.10 it y of [place] 4.2.7.2.686 Martin as TOÑO?BLEA [id number] Wy dicaliyah [place] 092 [facility] OFFICE [facility] 2022-10-02 2022-10-02 Outpatient R [facility] [id number] Univers 10:00:00 10:00:00 , CELINA it y of [facility] 2022-10-01 2022-10-01 Outpatient R [facility] [id number] Univers 09:40:00 09:40:00 REJI lechuga o f [facility] 2022-09-25 2022-09-25 Telephone Ponce [facility] ..543.955 [id number] [id number] Univers 00:00:00 00:00:00 Rad Cuello [place] 350.1.13.10 ity [facility] 4.2.7.2.[place] [phone] Wy dical NAL 059 [facility] 2022-09-21 2022-09-21 [facility] [id number] Univers 09:30:00 09:30:00 KASSANDRA chino [facility] 2022-09-21 2022-09-21 Letter [facility] 1.2.840.114 [id number] Univers 00:00:00 00:00:00 (Out) Kassandra HEALTH 350.1.13.10 it y of [place] 4.2.7.2.686 [place] as TOÑO?BLEA [id number] [address] OFFICE [facility] 2022-09-21 2022-09-21 Telephone [facility] 1.2.338.935 [id number] Univers 00:00:00 00:00:00 Kassandra HEALTH 350.1.13.10 it y of [place] 4.2.7.2.686 Martin as TOÑO?BLEA [id number] [address] 2022-09-21 2022-09-21 Telephone [facility] 1.2.463.487 [id number] Univers 00:00:00 00:00:00 Kassandra HEALTH 350.1.13.10 it y of [place] 4.2.7.2.686 [place] as TOÑO?BLEA [id number] [address] 2022-09-14 2022-09-14 [facility] [id number] Univers 09:30:00 09:30:00 KASSANDRA chino [facility] 2022-09-12 2022-09-12 Telephone [facility] 1.2.742.081 [id number] Univers 00:00:00 00:00:00 Kassandra HEALTH 350.1.13.10 it y of [place] 4.2.7.2.686 [place] as TOÑO?BLEA [id number] [address] 2022-09-07 2022-09-07 [facility] [id number] Univers 11:30:00 11:30:00 KASSANDRAGreat [facility] 2022-09-05 2022-09-05 Emergency X GUTIERREZ [facility] ERT [id number] Univers 08:44:00 13:15:00 CYNISE ity of [facility] 2022-09-05 2022-09-05 Emergency [facility] 1.2.078.822 [id number] [id number] Univers 08:44:00 13:15:00 Cynise LULU 350.1.13.10 i ty of [place].2.7.2.[place] [id number] [address] 2022-09-04 2022-09-04 Telephone Lexy [facility] 1.2.910.601 [id number] [id number] Univers 00:00:00 00:00:00 Kassandra HEALTH 350.1.13.10 it y of [place] 4.2.7.2.686 [place] as TOÑO?BLEA [id number] [address] OFFICE [facility] 2022-09-04 2022-09-04 Patient Ponce, [facility] 1..840.114 [id number] Univers 00:00:00 00:00:00 Secure Msg Rad Cuello LULU 350.1.13.10 ity of [place] 4.2.7.2.686 [place] [facility] [id number] Wy dicaliyah [facility]9 [facility] 2022-08-29 2022-08-29 Outpatient R [facility] [id number] Univers 09:00:00 09:00:00 , CELINA it y of [facility] 2022-08-14 2022-08-14 Patient Doctor [facility] 1.2.840.114 [id number] Univers 00:00:00 00:00:00 Secure Msg Unassigned, HEALTH 350.1.13.10 ity of [place] 4.2.7.2.686 [place] as TOÑO?BLEA [id number] [address] MEDICAL OFFICE [facility] 2022-07-31 2022-07-31 Emergency X [facility] ERT [id number] Univers 17:56:00 20:30:00 MANJU it y of [facility] 2022-07-31 2022-07-31 [facility] 1.2.322.333 [id number] [id number] Univers 17:56:00 20:30:00 Manju [facility] 350.1.13.10 ity of [place] 4.2.7.2.[place] [id number] [facility] [address] 2022-07-15 2022-07-15 Outpatient R [facility] [id number] [facility] 09:46:45 23:59:00 CARI ity o f [facility] 2022-07-15 2022-07-15 [facility] 1.2.840.114 [id number] Univers 09:46:45 23:59:00 Encounter [facility] 350.1.13.10 ity of [place] 4.2.7.2.686 [place] as TOÑO?BLEA [id number] [facility] [address] MEDICAL OFFICE [facility] 2022-07-15 2022-07-15 [facility] 1.2.840.114 [id number] [facility] 09:46:45 23:59:00 Encounter [facility] 350.1.13.10 ity of [place] 4.2.7.2.686 [place] as TOÑO?BLEA [id number] [facility] [address] MEDICAL OFFICE [facility] 2022-07-15 2022-07-15 Urgent [facility] 1.2.840 .114 [id number] [facility] 09:20:00 10:29:17 Care Unknown, Attending [facility] 350.1.13.10 ity of [place] 4.2.7.2.686 [place] TOÑO?BLEA [id number] [facility] [address] MEDICAL OFFICE BUILDING 2022-07-15 2022-07-15 Orders Doctor JORDAN 1.2.840.114 [id number] Univers 00:00:00 00:00:00 Only Unassigned, YAZMIN 350.1.13.10 ity of [place] [facility] 4.2.7.2.686 Martin as [id number] [facility] [address] 2022-06-23 2022-06-23 Outpatient [facility] [id number] Univers 09:20:00 10:27:39 [facility] 2022-[facility]-23 2022-06-23 Urgent Omaghomi, Omayemi [facility] 1.2.840. 114 [id number] Univers 09:20:00 10:27:39 Care Unknown, Attending HEALTH 350.1.13.10 ity of [facility] 4.2.7.2.686 Martin as TOÑO?BLEA [id number] Wy dical [address] MEDICAL OFFICE BUILDING 2022-06-23 2022-06-23 Orders Doctor JORDAN 1.2.840.114 [id number] Univers 00:00:00 00:00:00 Only Unassigned, YAZMIN 350.1.13.10 ity of [facility] 4.2.7.2.686 [place] as [id number] [facility] [address] 2022-06-15 2022-06-15 Outpatient Farzana [facility] [id number] Univers 09:40:00 09:40:00 LIAN [facility] 2022-05-29 2022-05-29 Outpatient Farzana [facility]GH [facility] [id number] Univers 08:00:00 08:00:00 KASSANDRAGreat [facility] 2022-05-15 2022-05-15 Outpatient Farzana MILLER [facility] [id number] Univers 09:20:00 09:20:00 BENNETT [facility] 2022-05-11 2022-05-11 Outpatient Farzana [facility] [id number] Univers 09:30:00 09:30:00 KASSANDRA [facility] 2022-05-05 2022-05-05 Emergency X ERROL [facility] ERT [id number] Univers 12:26:00 16:11:00 KARON [facility] 2022-05-05 2022-05-05 Emergency [facility] 1.2.840.114 [id number] Univers 12:26:00 16:11:00 Karon METCALFDAYAMI 350.1.13.10 i ty of [facility] 4.2.7.2.[place] [id number] [facility] [address] 2022-05-01 2022-05-01 Outpatient PRASANNA LOOMIS [facility] [id number] Univers 00:00:00 00:00:00 itchino [facility] 2022-04-26 2022-04-26 Emergency X SINGER [facility] ERT [id number] Univers 08:30:00 09:59:00 ZION lechuga [facility] 2022-04-26 2022-04-26 Emergency [facility] 1.2.557.747 [id number] Univers 08:30:00 09:59:00 Zion LAWSON 350.1.13.10 i ty of [place] 4.2.7.2.686 [facility] [id number] [address] 2022-04-25 2022-04-25 Emergency X GUTIERREZ [facility] ERT [id number] Univers 18:23:00 21:55:00 KENNEDY lechuga [facility] 2022-04-25 2022-04-25 Emergency [facility] 1.2.442.990 [id number] Univers 18:23:00 21:55:00 Kennedy [facility] MARYVALEDAYAMI 350.1.13.10 i ty of [place] 4.2.7.2.686 [facility] [id number] [address] 2022-04-19 2022-04-19 Outpatient R JC [facility] [id number] Univers 10:00:00 10:00:00 LIAN ankush [facility] 2022-04-12 2022-04-12 Telephone [facility] 1.2.380.132 [id number] Univers 00:00:00 00:00:00 [facility] 350.1.13.10 it y of [place] 4.2.7.2.686 [place] as TOÑO?BLEA [id number] [address] MEDICAL OFFICE [facility] 2022-04-11 2022-04-11 Telephone [facility] 1.2.840.114 [id number] Univers 00:00:00 00:00:00 [facility] 350.1.13.10 ity of [place] 4.2.7.2.686 [place] as TOÑO?BLEA [id number] [address] MEDICAL OFFICE BUILDING 2022-04-10 2022-04-10 Telephone [facility] 1.2.115.485 [id number] Univers 00:00:00 00:00:00 bookletmobile 350.1.13.10 it y of [place] 4.2.7.2.686 [place] as TOÑO?BLEA [id number] [address] OFFICE [facility] 2022-04-09 2022-04-09 Office [facility] 1.2.840.114 [id number] Univers 09:30:00 09:30:00 Visit bookletmobile 350.1.13.10 it y of [place] 4.2.7.2.686 [place] as TOÑO?BLEA [id number] [address] OFFICE [facility] 2022-04-09 2022-04-09 Outpatient R LEXY [facility] [id number] Univers 09:30:00 09:21:44 KASSANDRA chino [facility] 2022-04-07 2022-04-07 Emergency X [facility] ERT [id number] Univers 13:41:00 17:49:00 OLAMIDE [facility] 2022-04-07 2022-04-07 Emergency [facility] 1.2.539.618 [id number] Univers 13:41:00 17:49:00 Olamidenoah LAWSON 350.1.13.10 ity of [place] 4.2.7.2.686 [place] [facility] [id number] [address] 2022-04-04 2022-04-04 Telephone [facility] 1.2.978.719 [id number] Univers 00:00:00 00:00:00 bookletmobile 350.1.13.10 it y of [place] 4.2.7.2.686 [place] as TOÑO?BLEA [id number] [address] OFFICE [facility] 2022-04-02 2022-04-02 [facility] [id number] Univers 10:30:00 10:30:00 KASSANDRA chino [facility] 2022-03-28 2022-03-28 Patient Doctor [facility] 1.2.840.114 [id number] Univers 00:00:00 00:00:00 Secure Msg Unassigned, [facility] 350.1.13.10 ity of [place] 4.2.7.2.686 [place] as TOÑO?BLEA [id number] [address] 2022-03-24 2022-03-24 Emergency X PERLA, [facility] ERT [id number] Univers 07:35:00 13:11:00 KELLIE ity [facility] 2022-03-24 2022-03-24 [facility] 1.2.924.399 [id number] Univers 07:35:00 13:11:00 Kellie Duc [place] 350.1.13.10 ity of [place].2.7.2.686 [place] [id number] [address] 2022-03-23 2022-03-23 Outpatient [facility] [id number] [facility] 10:30:00 10:30:00 KASSANDRA ity [facility] 2022-03-23 2022-03-23 Telephone [facility] 1.2.840.114 [id number] Univers 00:00:00 00:00:00 [facility] 350.1.13.10 ity of [place] 4.2.7.2.686 [place] as TOÑO?BLEA [id number] [address] 2022-03-22 2022-03-22 Telephone [facility] 1.2.840.114 [id number] Univers 00:00:00 00:00:00 [facility] 350.1.13.10 ity of [place] 4.2.7.2.686 [place] as TOÑO?BLEA [id number] [address] 2022-03-22 2022-03-22 Refill [facility] 1.2.840.114 [id number] Univers 00:00:00 00:00:00 [facility] 350.1.13.10 ity of [place] 4.2.7.2.686 [place] as TOÑO?BLEA [id number] [address] [facility] 2022-03-21 2022-03-21 Telephone Yoselin [facility] 1.2.840.114 [id number] Univers 00:00:00 00:00:00 [facility] 350.1.13.10 ity of [place] 4.2.7.2.686 [place] as TOÑO?BLEA [id number] [facility] [address] 2022-03-15 2022-03-15 Outpatient R ARJUN [facility] [id number] Univers 14:00:00 14:36:19 BINPEARL ity o f [facility] 2022-03-15 2022-03-15 Office [facility] 1.2.840.114 [id number] Univers 14:00:00 14:36:19 Visit Reji [place] 350.1.13.10 ity of [place] 4.2.7.2.686 [place] [facility] [phone] Wy whit [facility] 059 [facility] 2022-03-15 2022-03-15 Emergency X BRYANNA [facility] ERT [id number] Univers 08:40:00 10:47:00 ANNA chino [facility] 2022-03-15 2022-03-15 Emergency [facility] 1.2.840.114 [id number] Univers 08:40:00 10:47:00 Anna [facility] MARYVALEDAYAMI 350.1.13.10 i ty of [place] 4.2.7.2.686 [place] [id number] [address] 2022-03-14 2022-03-14 Outpatient R PRASANNA VAGRAS [facility] [id number] Univers 10:30:00 10:30:00 ity of [facility] 2022-03-11 2022-03-11 Emergency X FELICE [facility] ERT [id number] Univers 09:22:00 12:15:00 SHINBECCA itchino [facility] 2022-03-11 2022-03-11 Emergency [facility] 1.2.840.114 [id number] Univers 09:22:00 12:15:00 Angelica [facility] MARYVALEDAYAMI 350.1.13.10 i ty of [place] 4.2.7.2.686 [place] [facility] [id number] [place] [address] [place] 2022-03-06 2022-03-06 Outpatient Farzana PUGH [facility] [id number] Univers 08:30:00 08:30:00 KASSANDRA chino [facility] 2022-03-02 2022-03-02 Telephone Yoselin [facility] 1.2.840.114 [id number] Univers 00:00:00 00:00:00 [facility] 350.1.13.10 ity of [place] 4.2.7.2.686 [place] as TOÑO?BLEA [id number] [address] MEDICAL OFFICE [facility] 2022-02-27 2022-02-27 Outpatient Farzana [facility]GH [facility] [id number] Univers 09:30:00 09:49:42 KASSANDRA lechuga [facility] 2022-02-27 2022-02-27 Office [facility] 1.2.840.114 [id number] Univers 09:30:00 09:49:[address] [facility] 350.1.13.10 it y of [place] 4.2.7.2.686 [place] as TOÑO?BLEA [id number] [address] OFFICE [facility] 2022-02-27 2022-02-27 Office [facility] 1.2.840.114 [id number] Univers 08:00:00 09:12:17 Visit [facility] 350.1.13.10 it y of [place] 4.2.7.2.686 [place] as TOÑO?BLEA [id number] [address] MEDICAL OFFICE [facility] 2022-02-26 2022-02-26 Outpatient Farzana [facility]GH [facility] [id number] Univers 11:30:00 11:30:00 KASSANDRA lechuga [facility] 2022-02-21 2022-02-21 Emergency X ALFONSO [facility] ERT [id number] Univers 01:20:00 03:44:00 MAGGIE lechuga [facility] 2022-02-21 2022-02-21 Emergency [facility] 1.2.840.114 [id number] Univers 01:20:00 03:44:00 Maggie LAWSON 350.1.13.10 ity of [place] 4.2.7.2.[place] [id number] [address] 2022-02-19 2022-02-19 Patient Robb [facility] 1.2.840.114 [id number] Univers 00:00:00 00:00:00 Secure Msg Kendal Amaral HEALTH 350.1.13.10 ity of [place] 4.2.7.2.686 [place] as TOÑO?BLEA [id number] [address] OFFICE [facility] 2022-02-19 2022-02-19 Patient [facility] 1.2.840.114 [id number] Univers 00:00:00 00:00:00 Secure Msg Kendal Amaral HEALTH 350.1.13.10 ity of [place] 4.2.7.2.686 [place] as TOÑO?BLEA [id number] [address] 2022-02-19 2022-02-19 Patient Annie [facility] 1.2.458.036 [id number] Univers 00:00:00 00:00:00 Secure Msg Ade SAM 350.1.13.10 ity of [facility] [place].2.[place] [id number] [address] 2022 2022 Emergency X [facility] ERT [id number] Univers 11:58:00 15:13:00 MAGGIE ity of [facility] 2022 2022 Emergency [facility] 1.2.840.114 [id number] Univers 11:58:00 15:13:00 Maggie LAWSON 350.1.13.10 ity of [place] 4.2.7.2.686 [place] [id number] [address] 2022-02-09 2022-02-09 Outpatient R BRANDON, [facility] [id number] Univers 09:00:00 09:00:00 CRICKET davis [facility] 2022-02-06 2022-02-06 Outpatient R JUAN [facility] [id number] Univers 10:00:00 10:00:00 VIJAY lechuga [facility] 2022-02-05 2022-02-05 Nurse Nurse, F[facility] 1.2.840.114 [id number] Univers 09:45:00 10:05:00 Visit [facility] 350.1.13.10 ity of [place] 4.2.7.2.686 [place] as TOÑO?BLEA [id number] Wy dical KNEY [address] MEDICAL OFFICE BUILDING 2022-02-05 2022-02-05 Outpatient [facility] [id number] Univers 09:20:00 09:20:00 FLACO lechuga o f [facility] 2022-01-26 2022-01-26 Case Prasanna Vargas [facility] 1.2.585.207 [id number] Univers 00:00:00 00:00:00 Management Cam [place] 350.1.13.10 ity [facility] 4.2.7.2.686 [place] [id number] Wy dical NAL [address] BUILDING 2022-01-22 2022-01-22 Outpatient R VÍCTORKassandra [facility] [id number] Univers 11:00:00 11:00:00 VIJAY lechuga [facility] 2022-01-18 2022-01-18 Emergency X GARDENIA [facility] ERT [id number] Univers 05:17:00 10:25:00 BERNARDO lechuga [facility] 2022-01-18 2022-01-18 Emergency Jayy Kennedy W TRAUMA 1.2.840.11 4 [id number] Univers 05:17:00 10:25:00 Bernardo Levy CENTER 350.1.13.10 it[place].2.[place] [id number] [address] 2022-01-15 2022-01-15 Emergency X DANITA [facility] ERT [id number] Univers 08:34:00 10:49:00 MAURA lechuga [facility] 2022-01-15 2022-01-15 Emergency Larry Perez R [facility] 1.2.840.1 14 [id number] Univers 08:34:00 10:49:00 Maura Samayoa LULU 350.1.13.10 ity [facility] 4.2.7.2.686 [facility] [id number] [address] 2022-01-08 2022-01-08 Emergency X GABRIELA, [facility] ERT [id number] Univers 18:04:00 20:09:00 HUMBERTO [facility] 2022-01-08 2022-01-08 Emergency [facility] 1.2.840.114 [id number] Univers 18:04:00 20:09:00 Humberto LULU 350.1.13.10 i ty [facility] 4.2.7.2.686 [facility] [id number] [address] 2021-12-12 2021-12-12 Outpatient Farzana CARNES [facility] [id number] Univers 13:30:00 13:40:21 TETO [facility] 2021-12-12 2021-12-12 Office Prasanna Vargas [facility] 1.2.840.114 [id number] Univers 13:30:00 13:40:21 Visit Teto Carnes 350.1.13.10 ity [facility] 4.2.7.2.686 [facility] PROFESSIO [id number] Wy dic[address] 2021-12-12 2021-12-12 Outpatient Farzana CARNES [facility] [id number] Univers 13:30:00 13:40:21 TETO [facility] 2021-12-12 2021-12-12 Outpatient Farzana CARNES [facility] [id number] Univers 13:30:00 13:40:21 TETO [facility] 2021-12-11 2021-12-11 Outpatient Farzana BRADFORD [facility] [id number] Univers 16:15:00 16:15:00 ADE [facility] 2021-12-05 2021-12-05 Outpatient Farzana OMALLEY [facility] [id number] Univers 14:15:00 14:15:00 ROMULO [facility] 2021-11-28 2021-11-28 Emergency X ERROL [facility] ERT [id number] Univers 08:49:00 11:02:00 KARON chino [facility] 2021-11-28 2021-11-28 Emergency Errol [facility] 1.2.840.114 [id number] Univers 08:49:00 11:02:00 Karon [facility] MARYVALEDAYAMI 350.1.13.10 i ty of [place] 4.2.7.2.686 [facility] [id number] [address] 2021-11-24 2021-11-24 Emergency X DEV, Kaycee [facility] ERT [id number] Univers 18:14:00 21:04:00 ity [facility] 2021-11-24 2021-11-24 Emergency Kaycee Méndez [facility] 1.2.840.114 [id number] Univers 18:14:00 21:04:00 Sharlene LAWSON 350.1.13.10 i ty of [place] 4.2.7.2.686 [facility] [phone] [address] 2021-11-24 2021-11-24 [facility]phone [facility] 1.2.840.114 [id number] Univers 00:00:00 00:00:00 Cricket Lopez [employer] 350.1.13.10 ity [facility] 4.2.7.2.686 Martin as MATERNAL [phone] Med ical & CHILD 107 [facility] 2021-11-20 2021-11-20 [facility] 1.2.840.114 [id number] Univers 00:00:00 00:00:00 Secure [facility] 350.1.13.10 ity [facility] 4.2.7.2.686 Martin as TOÑO?BLEA [phone] Wy whit [address] MEDICAL OFFICE BUILDING 2021-11-19 2021-11-19 Letter JORDAN Santacruz 1.2.840.114 [id number] Univers 00:00:00 00:00:00 (Out) Leslie ARCE 350.1.13.10 it y of [facility] 4.2.7.2.686 Martin as [phone] [address] 2021-11-18 2021-11-18 [facility] [id number] Univers 10:41:40 23:59:00 FLACO lechuga o f [facility] 2021-11-18 2021-11-18 Hospital [facility] [id number] Univers 10:41:40 23:59:00 Encounter [facility] 350.1.13.10 ity of [place] 4.2.7.2.686 Martin as TOÑO?BLEA [phone] [facility] [address] MEDICAL OFFICE [facility] 2021-11-18 2021-11-18 Urgent [facility] 1.2.840.114 [id number] Univers 10:20:00 10:53:20 Care [facility] 350.1.13.10 i ty of [place] 4.2.7.2.686 Martin as TOÑO?BLEA [phone] [facility] 370 [facility] OFFICE [facility] 2021-11-09 2021-11-09 [facility] [id number] Univers 10:30:00 10:30:00 CELINA lechuga [facility] 2021-10-25 2021-10-25 Urgent Ramsey Medranoanda [facility] ..840.114 [id number] Univers 13:20:00 13:20:00 Care [facility] 350..13.10 ity of [place] 4.2.7.2.686 Martin as TOÑO?BLEA [id number] [facility] [address] MEDICAL OFFICE [facility] 2021-10-25 2021-10-25 [facility] [id number] Univers 13:20:00 12:47:59 ILEANA lechuga [facility] 2021-10-25 2021-10-25 [facility] 1.2.840.114 [id number] Univers 00:00:00 00:00:00 [facility] Mama[facility] App 350.1.13.10 ity of [facility] 4.2.7.2.686 [place] as TOÑO?BLEA [phone] Wy whit [place] [address] MEDICAL OFFICE [facility] 2021-10-25 2021-10-25 Telephone Cotta, [facility] 1.2.743.936 [id number] Univers 00:00:00 00:00:00 Vijay HEALTH 350.1.13.10 it y of [place] 4.2.7.2.686 Martin as TOÑO?BLEA [phone] Wy whit [place] [address] MEDICAL OFFICE [facility] 2021-10-25 2021-10-25 Telephone Provider, [facility] 1.2.840.114 [id number] Univers 00:00:00 00:00:00 Ang Db HEALTH 350.1.13.10 it y of Urgent Care [place] 4.2.7.2.686 [place] TOÑO?BLEA [phone] Wy whit [place] 370 [facility] OFFICE [facility] 2021-10-25 2021-10-25 Telephone Nurse, Filippo [facility] 1.2.840.114 [id number] Univers 00:00:00 00:00:00 Db Urgent HEALTH 350.1.13.10 ity of Care [place] 4.2.7.2.686 [place] as TOÑO?BLEA [phone] Wy whit [place] 370 [facility] OFFICE [facility] 2021-10-24 2021-10-24 Outpatient Farzana [facility] [id number] Univers 10:15:00 10:15:00 ROMULO [facility] 2021-10-24 2021-10-24 Outpatient Farzana [facility] [id number] Univers 10:15:00 10:15:00 ROMULO [facility] 2021-10-11 2021-10-11 Outpatient Farzana [facility] [id number] Univers 09:30:00 09:30:00 ROMULO [facility] 2021-10-10 2021-10-10 Outpatient PRASANNA LOOMIS [facility] [id number] Univers 13:30:00 13:30:00 ity [facility] 2021-10-10 2021-10-10 Outpatient PRASANNA [facility]IS [facility] [id number] Univers 13:30:00 13:30:00 ity [facility] 2021-10-10 2021-10-10 Outpatient R PRASANNA VARGAS [facility] [id number] Univers 13:30:00 13:30:00 ity of [facility] 2021-10-10 2021-10-10 Outpatient R PRASANNA VARGAS [facility] [id number] Univers 13:30:00 13:30:00 ity of [facility] 2021-10-10 2021-10-10 Outpatient R PRASANNA VARGAS [facility] [id number] Univers 13:30:00 13:30:00 ity of [facility] 2021-10-10 2021-10-10 Outpatient R ALICIA [facility] [id number] Univers 13:30:00 13:30:00 ity of [facility] 2021-10-10 2021-10-10 [facility] [id number] Univers 13:30:00 13:30:00 ity [facility] 2021-10-05 2021-10-05 Patient Robb [facility] 1.2.840.114 [id number] Univers 00:00:00 00:00:00 Secure Msg Kendal HEALTH 350.1.13.10 ity of [place] 4.2.7.2.686 [place] as TOÑO?BLEA [phone] [address] OFFICE [facility] 2021-10-05 2021-10-05 Patient Robb [facility] 1.2.840.114 [id number] Univers 00:00:00 00:00:00 Secure g Kendal Amaral HEALTH 350.1.13.10 ity of [place] 4.2.7.2.686 [place] TOÑO?BLEA [phone] [address] MEDICAL OFFICE [facility] 2021-10-04 2021-10-04 Pre Visit HILARIO Rodriguez 1.2.170.811 [id number] Univers 00:00:00 00:00:00 Outreach Melia TELLO 350.1.13.10 ity of [place].2.[place] [phone] [address] 2021-09-28 2021-09-28 [facility] 1.2.840.114 [id number] Univers 13:30:00 13:45:00 Visit Celina Cannon [facility] [place] [id number] [address] 2021-09-28 2021-09-28 [facility] [id number] Univers 13:30:00 13:30:00 CELINA [facility] 2021-09-28 2021-09-28 Outpatient [facility] [id number] Univers 13:30:00 13:30:[facility] 2021-09-28 2021-09-28 Patient [facility] 1.2.840.114 [id number] Univers 00:00:00 00:00:00 Secure Msg Celina Cannon [place] [facility].13.10 [facility] [place].2.[place] [phone] [address] 2021-09-27 2021-09-27 Outpatient R DEYVI, [facility] [id number] Univers 14:00:00 14:00:00 TETO [facility] 2021-09-27 2021-09-27 Outpatient [facility] [id number] Univers 09:30:00 09:30:00 [facility] 2021-09-27 2021-09-27 Out[facility] [id number] Univers 09:30:00 09:30:00 [facility] 2021-09-27 2021-09-27 Outpatient [facility] [id number] Univers 09:30:00 09:30:00 [facility] 2021-09-26 2021-09-26 Outpatient R BRANDON, [facility] [id number] Univers 10:45:00 10:45:00 CRICKET lechuga o f [facility] 2021-09-26 2021-09-26 Outpatient R AKINLYNSEY [facility] [id number] Univers 10:45:00 10:45:00 CRICKET ity o f [facility] 2021-09-26 2021-09-26 Patient Juan [facility] 1.2.840.114 [id number] Univers 00:00:00 00:00:00 Secure [facility]ly [facility] 350.1.13.10 ity of [place] 4.2.7.2.686 [place] as TOÑO?BLEA [phone] [facility] [address] MEDICAL OFFICE [facility] 2021-09-26 2021-09-26 Patient Juan [facility] 1.2.840.114 [id number] Univers 00:00:00 00:00:00 Secure Ms Vijay HEALTH 350.1.13.10 ity of [place] 4.2.7.2.686 [place] as TOÑO?BLEA [phone] [address] OFFICE [facility] 2021-09-25 2021-09-25 Urgent Flaco Boyd [facility] 1.2.840. 114 [id number] Univers 10:20:00 11:10:42 Care [facility] 350.1.13.10 ity of [place] 4.2.7.2.686 [place] as TOÑO?BLEA [phone] [facility] 370 [facility] OFFICE [facility] 2021-09-25 2021-09-25 Outpatient R OLIVER [facility] [id number] Univers 10:20:00 11:10:42 FLACO lechuga o [facility] 2021-09-25 2021-09-25 Outpatient R OLIVER, [facility] [id number] Univers 10:20:00 10:20:00 FLACO ity o f [facility] 2021-09-25 2021-09-25 Outpatient R PRASANNA VARGAS [facility] [id number] Univers 10:00:00 10:00:00 ity of [facility] 2021-09-25 2021-09-25 Telephone [facility] 1.2.840.114 [id number] Univers 00:00:00 00:00:00 [facility] 350.1.13.10 i ty of [place] 4.2.7.2.686 [place] as TOÑO?BLEA [phone] Wy dical KNEY [address] MEDICAL OFFICE [facility] 2021-09-25 2021-09-25 Patient Prasanna Vargas [facility] 1.2.589.740 [id number] Univers 00:00:00 00:00:00 Secure Msg Cam AGAR 350.1.13.10 ity of [place] 4.2.7.2.686 [place] [phone] Me dical NAL 134 [facility] 2021-09-25 2021-09-25 Telephone Brandon [facility] 1.2.840.114 [id number] Univers 00:00:00 00:00:00 Cricket C FLEXIBLE SHAFT WINDER 350.1.13.10 ity of [facility] 4.2.7.2.686 Martin as MATERNAL [phone] Med ical & CHILD 107 [facility] 2021-09-25 2021-09-25 Telephone Apurva [facility] 1.2.762.877 [id number] Univers 00:00:00 00:00:00 Celina SAM 350.1.13.10 ity of [facility] 4.2.7.2.686 [place] [phone] [address] 2021-09-15 2021-09-15 Patient Robb [facility] 1.2.840.114 [id number] Univers 00:00:00 00:00:00 Secure Msg Kendal Munir HEALTH 350.1.13.10 ity of [place] 4.2.7.2.686 [place] as TOÑO?BLEA [phone] Wy dical KNEY 044 [facility] OFFICE [facility] 2021-09-15 2021-09-15 Patient Robb [facility] 1.2.840.114 [id number] Univers 00:00:00 00:00:00 Secure Msg Kendal M HEALTH 350.1.13.10 ity of [place] 4.2.7.2.686 [place] as TOÑO?BLEA [phone] Wy dical IVÁNEY 044 [facility] OFFICE [facility] 2021-09-15 2021-09-15 Patient Robb [facility] 1.2.840.114 [id number] Univers 00:00:00 00:00:00 Secure Msg Kendal M HEALTH 350.1.13.10 ity of [facility] 4.2.7.2.686 [place] as TOÑO?BLEA [phone] Wy whit [address] MEDICAL OFFICE [facility] 2021-09-14 2021-09-14 Patient Juan [facility] 1.2.840.114 [id number] Univers 00:00:00 00:00:00 Secure Msg Vijay HEALTH 350.1.13.10 ity of [facility] 4.2.7.2.686 [place] as TOÑO?BLEA [phone] [address] OFFICE [facility] 2021-09-12 2021-09-12 Outpatient Farzana MIXON [facility] [id number] Univers 10:30:00 10:30:00 CELINA lechuga [facility] 2021-09-12 2021-09-12 Outpatient Farzana MIXON [facility] [id number] Univers 10:30:00 10:30:00 CELINA lechuga [facility] 2021-09-12 2021-09-12 [facility] 1.2.840.114 [id number] Univers 00:00:00 00:00:00 Secure Msg Daniel CRAIG 350.1.13.10 ity of [place] 4.2.7.2.686 [place] [facility] [phone] [facility] [place] [address] [facility] 2021-09-12 2021-09-12 Orders Doctor JORDAN 1.2.840.114 [id number] Univers 00:00:00 00:00:00 Only Unassigned, YAZMIN 350.1.13.10 ity of [place] [facility] 4.2.7.2.686 Martin as [phone] [facility] [address] 2021-09-12 2021-09-12 Patient Juan [facility] 1.2.840.114 [id number] Univers 00:00:00 00:00:00 Secure Msg Vijay HEALTH 350.1.13.10 ity of [facility] 4.2.7.2.686 [place] as TOÑO?BLEA [phone] Wy whit MINOR[address] MEDICAL OFFICE [facility] 2021-09-05 2021-09-05 Patient Juan [facility] 1.2.840.114 [id number] Univers 00:00:00 00:00:00 Secure Msg Vijay HEALTH 350.1.13.10 ity of [place] 4.2.7.2.686 [place] as TOÑO?BLEA [id number] Wy whit [place] [address] MEDICAL OFFICE [facility] 2021-09-04 2021-09-04 Patient Juan [facility] 1.2.840.114 [id number] Univers 00:00:00 00:00:00 Secure Msg Vijay HEALTH 350.1.13.10 ity of [place] 4.2.7.2.686 Martni as TOÑO?BLEA [phone] Wy whit [place] 044 [facility] OFFICE [facility] 2021-08-25 2021-08-25 Telephone Aditi [facility] 1.2.840.114 [id number] Univers 00:00:00 00:00:00 Daina L HEALTH 350.1.13.10 it y of [place] 4.2.7.2.686 [place] as TOÑO?BLEA [phone] Wy whit [place] 198 [facility] OFFICE [facility] 2021-08-25 2021-08-25 Patient Juan [facility] 1.2.840.114 [id number] Univers 00:00:00 00:00:00 Secure Msg Vijay HEALTH 350.1.13.10 ity of [place] 4.2.7.2.686 [place] as TOÑO?BLEA [phone] Wy whit [place] [address] MEDICAL OFFICE [facility] 2021-08-24 2021-08-24 Telephone Juan [facility] 1.2.705.747 [id number] Univers 00:00:00 00:00:00 Vijay HEALTH 350.1.13.10 it y of [place] 4.2.7.2.686 [place] as TOÑO?BLEA [phone] Wy whit [place] [address] MEDICAL OFFICE [facility] 2021-08-24 2021-08-24 Patient Juan [facility] 1.2.840.114 [id number] Univers 00:00:00 00:00:00 Secure Msg Vijay HEALTH 350.1.13.10 ity of [place] 4.2.7.2.686 [place] as TOÑO?BLEA [id number] Me whit [place] [address] [place] [address] MEDICAL OFFICE [facility] 2021-08-23 2021-08-23 [facility] 1.2.840.114 [id number] Univers 00:00:00 00:00:00 Secure Msg Vijay HEALTH 350.1.13.10 ity of [place] 4.2.7.2.686 Martin as TOÑO?BLEA [phone] Me whit [place] [address] [place] [address] MEDICAL OFFICE [facility] 2021-08-23 2021-08-23 Telephone [facility] 1.2.723.662 [id number] Univers 00:00:00 00:00:00 Vijay HEALTH 350.1.13.10 it y of [place] 4.2.7.2.686 [place] as TOÑO?BLEA [phone] Me whit [place] [address] [place] [address] OFFICE [facility] 2021-08-22 2021-08-22 Telephone [facility] 1.2.245.370 [id number] Univers 00:00:00 00:00:00 Vijay HEALTH 350.1.13.10 it y of [place] 4.2.7.2.686 [place] as TOÑO?BLEA [phone] Wy whit [place] [address] [place] [address] OFFICE [facility] 2021-08-22 2021-08-22 Patient Jaja [facility] 1.2.840.114 [id number] Univers 00:00:00 00:00:00 Secure Ms Hallie HEALTH 350.1.13.10 ity of [place] 4.2.7.2.686 [place] as TOÑO?BLEA [phone] Wy whit [place] [address] [place] [address] OFFICE [facility] 2021-08-18 2021-08-18 Telephone [facility] 1.2.671.664 [id number] Univers 00:00:00 00:00:00 Vijay HEALTH 350.1.13.10 it y of [place] 4.2.7.2.686 [place] as TOÑO?BLEA [phone] Wy whit [place] [address] [place] [address] OFFICE [facility] 2021-08-17 2021-08-17 Jeramy [facility]ON [facility] [id number] Univers 09:00:00 09:00:00 CELINA lechuga [facility] 2021-08-17 2021-08-17 Outpatient Farzana [facility]IXON [facility] [id number] Univers 09:00:00 09:00:00 CELINA lechuga [facility] 2021-08-16 2021-08-16 Patient Juan [facility] 1.2.840.114 [id number] Univers 00:00:00 00:00:00 Secure Ms Vijay [employer] App 350.1.13.10 ity of [place] 4.2.7.2.686 [place] as TOÑO?BLEA [phone] Wy alessandraaliyah MIKI [address] [place] [address] OFFICE [facility] 2021-08-15 2021-08-15 Office [facility] 1.2.840.114 [id number] Univers 15:30:00 16:16:42 Visit Adán Jones [facility] 350.1.13.10 it y of [place] 4.2.7.2.686 Amrtin as TOÑO?BLEA [phone] Wy whit [place] 198 [facility] OFFICE [facility] 2021-08-15 2021-08-15 Outpatient [facility] [id number] Univers 15:30:00 16:16:42 [facility] 2021-08-15 2021-08-15 Outpatient [facility] [id number] Univers 15:30:00 15:30:00 ADÁN ity [facility] 2021-08-15 2021-08-15 Outpatient Farzana KIM [facility] [id number] Univers 15:30:00 15:30:00 [facility] 2021-08-15 2021-08-15 Outpatient [facility]zana [facility] [id number] Univers 15:30:00 15:30:00 [facility] 2021-08-15 2021-08-15 Emergency X DANITA [facility] ERT [id number] Univers 09:27:00 12:26:00 MAURA lechuga [facility] 2021-08-15 2021-08-15 Emergency Danita [facility] 1.2.813.939 [id number] Univers 09:27:00 12:26:00 Sasabe AGAR 350.1.13.10 ity of [place] 4.2.7.2.686 [place] [facility] [id number] [address] 2021-08-15 2021-08-15 Emergency X DANITA [facility] ERT [id number] Univers 09:27:00 12:26:00 MAURA lechuga [facility] 2021-08-14 2021-08-14 Outpatient R JUAN [facility] [id number] Univers 13:25:00 23:59:00 VIJAY lechuga [facility] 2021-08-14 2021-08-14 Outpatient R VÍCTORKassandra [facility] [id number] Univers 13:25:00 23:59:00 VIJAY lechuga [facility] 2021-08-14 2021-08-14 Outpatient R JUAN [facility] [id number] Univers 13:25:00 13:25:00 VIJAY lechuga [facility] 2021-08-14 2021-08-14 Outpatient R JUAN [facility] [id number] Univers 12:19:07 13:24:00 VIJAY lechuga [facility] 2021-08-14 2021-08-14 Outpatient R JUAN [facility] [id number] Univers 12:19:07 13:24:00 VIJAY lechuga [facility] 2021-08-14 2021-08-14 Third Mate Lab, Ang - Db [facility] 1.2.840.1 14 [id number] Univers 12:30:00 13:01:24 Visit VíctorVijay cannon [facility] 350.1.13.10 ity [facility] 4.2.7.2.686 Martin as TOÑO?BLEA [id number] [address] MEDICAL OFFICE [facility] 2021-08-14 2021-08-14 Third Mate Lab, Ang - Db [facility] 1.2.840.1 14 [id number] Univers 12:30:00 12:45:00 Visit VíctorVijay cannon HEALTH 350.1.13.10 ity of [place] 4.2.7.2.686 Martin as TOÑO?BLEA [id number] [address] MEDICAL OFFICE BUILDING 2021-08-14 2021-08-14 Office [facility] 1.2.840.114 [id number] Univers 11:30:00 12:31:12 Visit Vijay HEALTH 350.1.13.10 it y of [facility] 4.2.7.2.686 Martin as TOÑO?BLEA [phone] Wy whit MINOR 044 [facility] OFFICE [facility] 2021-08-14 2021-08-14 [facility] [id number] Univers 11:30:00 12:31:12 VIJAY itchnio [facility] 2021-08-14 2021-08-14 Patient [facility] 1.2.840.114 [id number] Univers 00:00:00 00:00:00 Secure Msg Vijay HEALTH 350.1.13.10 ity of [place] 4.2.7.2.686 Martin as TOÑO?BLEA [id number] [address] OFFICE [facility] 2021-08-09 2021-08-09 Outpatient [facility] [id number] Univers 14:45:00 14:45:00 ADÁN ity [facility] 2021-08-09 2021-08-09 Telephone [facility] 1.2.455.662 [id number] Univers 00:00:00 00:00:00 Vijay HEALTH 350.1.13.10 it y of [place] 4.2.7.2.686 Martin as TOÑO?BLEA [phone] [address] 2021-08-08 2021-08-08 Outpatient [facility] [id number] Univers 11:30:00 23:59:00 VIJAY itchino [facility] 2021-08-08 2021-08-08 Hospital [facility] 1.2.840.114 [id number] Univers 11:30:00 23:59:00 Encounter Vijay HEALTH 350.1.13.10 ity of [place] 4.2.7.2.686 Martin as TOÑO?BLEA [id number] Wy whit MINOR 808 [facility] OFFICE [facility] 2021-08-08 2021-08-08 Outpatient [facility] [id number] Univers 11:15:00 11:15:00 VIJAY lechuga [facility] 2021-08-08 2021-08-08 Outpatient R VÍCTORKassandra [facility] [id number] Univers 11:00:00 11:00:00 VIJAY lechuga [facility] 2021-08-08 2021-08-08 Patient Doctor JORDAN 1.2.840.114 [id number] Univers 00:00:00 00:00:00 Secure Msg Unassigned, YAZMIN 350.1.13.10 ity of [facility] 4.2.7.2.686 [place] as [id number] [address] 2021-08-07 2021-08-07 Office Juan [facility] 1.2.840.114 [id number] Univers 09:30:00 10:23:21 Visit Vijay PETTY 350.1.13.10 it y of [facility] 4.2.7.2.686 [place] as TOÑO?BLEA [id number] Wy dicaliyah [address] MEDICAL OFFICE [facility] 2021-08-07 2021-08-07 Outpatient R JUAN [facility] [id number] Univers 09:30:00 10:23:21 VIJAY lechuga [facility] 2021-08-07 2021-08-07 Outpatient R JUAN [facility] [id number] Univers 09:30:00 09:30:00 VIJAY lechuga [facility] 2021-08-07 2021-08-07 Patient Juan [facility] 1.2.840.114 [id number] Univers 00:00:00 00:00:00 Secure Msg Vijay HEALTH 350.1.13.10 ity of [facility] 4.2.7.2.686 Martin as TOÑO?BLEA [phone] Wy dicaliyah [address] MEDICAL OFFICE BUILDING 2021-08-07 2021-08-07 Patient Juan [facility] 1.2.840.114 [id number] Univers 00:00:00 00:00:00 Secure Msg Vijay HEALTH 350.1.13.10 ity of [place] 4.2.7.2.686 Martin as TOÑO?BLEA [id number] Wy dical IVÁN[address] MEDICAL OFFICE BUILDING 2021-08-07 2021-08-07 Patient Apurva [facility] 1.2.840.114 [id number] Univers 00:00:00 00:00:00 Secure Msg Celina A FLACO 350.1.13.10 ity of [facility] 4.2.7.2.686 [place] [id number] [address] 2021-08-04 2021-08-04 Outpatient R SHADIA [facility] [id number] Univers 10:00:00 10:00:00 PETRA ity of [facility] 2021-08-04 2021-08-04 Patient [facility] 1.2.840.114 [id number] Univers 00:00:00 00:00:00 Secure Msg Vijay HEALTH 350.1.13.10 ity of [place] 4.2.7.2.686 Martin as TOÑO?BLEA [phone] [address] MEDICAL OFFICE BUILDING 2021-08-03 2021-08-03 Office SOURAV Diaz 1.2.840.114 [id number] Univers 11:00:00 12:48:43 Visit Jayy Y 350.1.13.10 it y of [facility] 4.2.7.2.686 Martin as BANK [phone] [address] 2021-08-03 2021-08-03 Outpatient R EMILY [facility] [id number] Univers 11:00:00 12:48:43 JAYYBELKYS maradiagay [facility] 2021-08-03 2021-08-03 Outpatient [facility] [id number] Univers 11:00:00 11:00:00 JAYY hireny [facility] 2021-08-03 2021-08-03 Patient [facility] 1.2.840.114 [id number] Univers 00:00:00 00:00:00 Secure Msg Celina A FLACO 350.1.13.10 ity of [facility] 4.2.7.2.686 [place] [phone] [address] 2021-08-02 2021-08-02 Telephone Juan [facility] [id number] Univers 00:00:00 00:00:00 Vijay HEALTH 350.1.13.10 it y of [facility] 4.2.7.2.686 [place] as TOÑO?BLEA [phone] [facility] IVÁN[address] 2021-07-21 2021-07-21 Outpatient R [facility]ION [facility] [id number] Univers 08:00:00 08:52:53 DARRION WYATT chino [facility] 2021-07-17 2021-07-17 Outpatient R JUAN [facility] [id number] Univers 11:30:00 11:30:00 VIJAY [facility] 2021-06-19 2021-06-19 [facility]phone [facility] [id number] Univers 00:00:00 00:00:00 Vijay HEALTH 350.1.13.10 it y of [place] 4.2.7.2.686 [place] TOÑO?BLEA [id number] [address] 2021-06-09 2021-06-09 Telephone [facility] [id number] Univers 00:00:00 00:00:00 Reji AGAR 350.1.13.10 ity of [place].2.[place] [phone] [place] [id number] [facility] 2021-06-06 2021-06-06 Outpatient Farzana CARNES [facility] [id number] Univers 11:15:00 11:15:00 TETO lechuga [facility] 2021-06-06 2021-06-06 Outpatient R DEYVI [facility] [id number] Univers 11:15:00 11:15:00 TETO lechuga [facility] 2021-06-02 2021-06-02 Outpatient R CRISTINA [facility] [id number] Univers 15:45:00 15:45:00 WONDIFUL ity o f [facility] 2021-05-31 2021-05-31 [facility] [id number] Univers 10:00:00 10:46:31 VIJAY lechuga of [facility] 2021-05-31 2021-05-31 Office Víctorkassandra [facility] [id number] Univers 10:00:00 10:46:31 Visit Vijay HEALTH 350.1.13.10 it y of [facility] 4.2.7.2.686 [place] TOÑO?BLEA [phone] [address] OFFICE [facility] 2021-05-31 2021-05-31 Outpatient R JUAN [facility] [id number] Univers 10:00:00 10:46:31 VIJAY lechuga [facility] 2021-05-31 2021-05-31 Orders Doctor JORDAN 1.2.840.114 [id number] Univers 00:00:00 00:00:00 Only Unassigned, YAZMIN 350.1.13.10 ity of [place] [facility] 4.2.7.2.686 [place] as [phone] [address] 2021-05-26 2021-05-26 Telephone [facility] 1.2.224.002 [id number] Univers 00:00:00 00:00:00 Skylar A HEALTH 350.1.13.10 i ty of [place] 4.2.7.2.686 [place] as TOÑO?BLEA [id number] [address] 2021-05-26 2021-05-26 Patient Prasanna Vargas [facility] 1.2.314.946 [id number] Univers 00:00:00 00:00:00 Secure Msg Cam AG[place] 350.1.13.10 ity of [place] [phone] [address] 2021-05-25 2021-05-25 Telemedici [facility] 1.2.840.114 [id number] Univers 14:00:00 14:30:00 ne Visit Skylar A HEALTH 350.1.13.10 ity of [place] 4.2.7.2.686 [place] as TOÑO?BLEA [phone] [address] OFFICE [facility] 2021-05-25 2021-05-25 [facility] [id number] Univers 14:00:00 14:00:00 SKYLAR lechuga [facility] 2021-05-25 2021-05-25 Outpatient R YANELI [facility] [id number] Univers 14:00:00 14:00:00 SKYLAR lechuga [facility] 2021-05-24 2021-05-24 Telephone Ponce [facility] 1.2.388.239 [id number] Univers 00:00:00 00:00:00 Rad LAWSON 350.1.13.10 ity of [place] [phone] [address] 2021-05-23 2021-05-23 Outpatient R [facility] [id number] Univers 10:00:00 10:00:00 ity [facility] 2021-05-23 2021-05-23 Outpatient R [facility] [id number] Univers 10:00:00 10:00:00 ity [facility] 2021-05-16 2021-05-16 Outpatient R MANUELCHRISTOPHERZAMZAM, [facility] [id number] Univers 09:00:00 09:00:00 TETO [facility] 2021-05-12 2021-05-12 Orders Doctor JORDAN 1.2.840.114 [id number] Univers 00:00:00 00:00:00 Only Unassigned, YAZMIN 350.1.13.10 ity of [place] [facility] 4.2.7.2.686 [place] as [phone] [address] 2021-05-10 2021-05-10 Outpatient R CRISTINA [facility] [id number] Univers 13:00:00 13:00:00 WONDIFUL ity o f [facility] 2021-05-10 2021-05-10 Out[facility] [id number] Univers 13:00:00 13:00:00 WONDIFUL ity o f [facility] 2021-05-09 2021-05-09 Telephone Prasanna Vargas [facility] 1.2.840.114 [id number] Univers 00:00:00 00:00:00 Jm [place] 350.1.13.10 i ty [facility] 4.2.7.2.[place] [id number] Wy dical NAL 134 [facility] 2021-05-09 2021-05-09 Patient [facility] 1.2.840.114 [id number] Univers 00:00:00 00:00:00 Secure Msg Rad LAWSON 350.1.13.10 ity of [place] 4.[place] [id number] Wy dical NAL 059 [facility] 2021-05-08 2021-05-08 Outpatient R YASMEEN [facility] [id number] Univers 16:00:00 16:00:00 JE chino [facility] 2021-05-08 2021-05-08 Outpatient Farzana ARANA [facility] [id number] Univers 16:00:00 16:00:00 [facility] 2021-05-08 2021-05-08 Patient [facility] 1.2.840.114 [id number] Univers 00:00:00 00:00:00 Secure Msg Rad LAW[place] 350.1.13.10 ity of [place] [phone] Wy dicvt NAL 059 [facility] 2021-05-08 2021-05-08 [facility] 1.2.840.114 [id number] Univers 00:00:00 00:00:00 Secure Msg Rad [place] 350.1.13.10 it[place] of [place].2.[place] [phone] Wy dical NAL 059 [facility] 2021-05-03 2021-05-03 Outpatient R ARJUN [facility] [id number] Univers 11:15:36 23:59:00 REJI fitzpatrick f [facility] 2021-05-03 2021-05-03 [facility] 1.2.840.114 [id number] Univers 11:15:36 23:59:00 Encounter Reji METCALFDAYAMI 350.1.13.10 ity of [place].2.[place].2.[place] [phone] [facility] 846 [facility] 2021-05-03 2021-05-03 Telephone [facility] 1.2.840.114 [id number] Univers 00:00:00 00:00:00 Wondiful A HEALTH 350.1.13.10 ity of [place] 4.2.7.2.686 [place] as TOÑO?BLEA [id number] [address] OFFICE [facility] 2021-05-02 2021-05-02 Telephone [facility] 1.2.843.050 [id number] Univers 00:00:00 00:00:00 Sendil [facility] [place] 350.1.13.10 ity of [place].2.[place] [phone] [facility] 059 [facility] 2021-05-02 2021-05-02 Patient [facility] 1.2.840.114 [id number] Univers 00:00:00 00:00:00 Secure Msg Wondiful A HEALTH 350.1.13.10 ity of [place] 4.2.7.2.686 [place] as TOÑO?BLEA [phone] [address] 2021-05-02 2021-05-02 Telephone [facility] 1.2.840.114 [id number] Univers 00:00:00 00:00:00 Wondiful A HEALTH 350.1.13.10 ity of [place] 4.2.7.2.686 [place] as TOÑO?BLEA [phone] [address] OFFICE [facility] 2021-05-02 2021-05-02 [facility] 1.2.840.114 [id number] Univers 00:00:00 00:00:00 Secure Msg Sendil [facility] [place] 350.1.13.10 ity of [place] 4.2.7.2.[place] [id number] [facility] 059 [facility] 2021-04-27 2021-04-27 Emergency X [facility] ERT [id number] Univers 14:24:00 15:49:00 MAGGIE itchino [facility] 2021-04-27 2021-04-27 Emergency [facility] 1.2.840.114 [id number] Univers 14:24:00 15:49:00 Maggie LAWSON 350.1.13.10 ity of [place] 4.2.7.2.[place] [id number] [facility] [address] [place] 2021-04-27 2021-04-27 Laboratory Only, Ang Db Test [facility] 1.2.8 40.114 [id number] Univers 11:15:00 11:30:00 Only Unknown, Attending HEALTH 350.1.13.10 ity of [facility] 4.2.7.2.686 [place] TOÑO?BLEA [phone] Wy whit MINOR [address] [place] MEDICAL OFFICE [facility] 2021-04-27 2021-04-27 Outpatient R SIL [facility] [id number] Univers 11:15:00 11:15:00 THONY [facility] 2021-04-27 2021-04-27 Orders Doctor JORDAN 1.2.840.114 [id number] Univers 00:00:00 00:00:00 Only Unassigned, YAZMIN 350.1.13.10 ity of [place] [facility] 4.2.7.2.686 [place] [phone] [facility] [address] [place] 2021-04-20 2021-04-20 Outpatient R JUSTINE [facility] [id number] Univers 15:00:00 15:00:00 SCOTT ity [facility] 2021-04-13 2021-04-13 Patient Cristina [facility] 1.2.840.114 [id number] Univers 00:00:00 00:00:00 Secure Msg Wondiful A HEALTH 350.1.13.10 ity of [place] 4.2.7.2.686 [place] as TOÑO?BLEA [phone] Wy whit MINOR [address] [place] MEDICAL OFFICE [facility] 2021-04-12 2021-04-12 Telephone Cristina [facility] 1.2.840.114 [id number] Univers 00:00:00 00:00:00 Wondiful A HEALTH 350.1.13.10 ity of [place] 4.2.7.2.686 [place] as TOÑO?BLEA [id number] [address] MEDICAL OFFICE [facility] 2021-03-27 2021-03-27 Telephone Prasanna Vargas [facility] 1.2.840.114 [id number] Univers 00:00:00 00:00:00 Cam [place] 350.1.13.10 i ty [facility] 4.2.7.2.[place] [id number] [address] 2021-03-23 2021-03-23 Outpatient R KAVYA [facility] [id number] Univers 13:30:00 13:30:00 CHILVANA ity o f [facility] 2021-03-23 2021-03-23 Outpatient R KAVYA [facility] [id number] Univers 13:30:00 13:30:00 CHILVANA ity o f [facility] 2021-03-22 2021-03-22 Outpatient R NEHEMIAH MEEKSINEz [facility] [id number] Univers 09:20:00 09:20:00 ATANASJABIER STRAHIL ity [facility] 2021-03-22 2021-03-22 Outpatient R NEHEMIAH MEEKSINEz [facility] [id number] Univers 09:20:00 09:20:00 ADITYA MEEKS itchino [facility] 2021-03-20 2021-03-20 Out[facility] [id number] Univers 00:00:00 00:00:00 WONDIFUL ity o f [facility] 2021-03-18 2021-03-18 Case [facility] 1.2.840.114 [id number] Univers 00:00:00 00:00:00 Management Wondiful A HEALTH 350.1.13.10 ity of [place] 4.2.7.2.686 [place] as TOÑO?BLEA [id number] [address] [facility] 2021-03-16 2021-03-16 Third Mate Lab, Ang - Db [facility] 1.2.840.1 14 [id number] Univers 11:16:07 11:31:07 Visit Claudette Evans A HEALTH 350.1.13.1 0 ity of [place] 4.2.7.2.686 [place] as TOÑO?BLEA [id number] [facility] 353 [facility] OFFICE [facility] 2021-03-16 2021-03-16 Outpatient R CRISTINA [facility] [id number] Univers 11:30:00 11:30:00 WONDIFUL ity o f [facility] 2021-03-16 2021-03-16 Outpatient R CRISTINA [facility] [id number] Univers 11:00:00 11:14:45 WONDIFUL ity o f [facility] 2021-03-16 2021-03-16 Office [facility] 1.2.840.114 [id number] Univers 10:00:58 11:14:45 Visit Wonlgful A HEALTH 350.1.13.10 ity of [place] 4.2.7.2.686 [place] as TOÑO?BLEA [id number] [address] OFFICE [facility] 2021-03-16 2021-03-16 Patient Cristina [facility] 1.2.840.114 [id number] Univers 00:00:00 00:00:00 Secure Msg Wondiful A HEALTH 350.1.13.10 ity of [place] 4.2.7.2.686 [place] as TOÑO?BLEA [phone] [address] OFFICE [facility] 2021-03-02 2021-03-02 Outpatient R CRISTINA [facility] [id number] Univers 16:15:00 16:15:00 WONDIFUL ity o [facility] 2021-02-28 2021-02-28 Outpatient R HARDEEP [facility] [id number] Univers 18:30:00 18:30:00 ILEANA itchino of [facility] 2021-02-28 2021-02-28 Telephone Cristina [facility] 1.2.840.114 [id number] Univers 00:00:00 00:00:00 Wondiful A Health 350.1.13.10 ity of [place] 4.2.7.2.686 [place] as Toño?Blea [phone] Wy whit [place] [address] [place] Medical Office [facility] 2021-02-27 2021-02-27 Outpatient R STEPHANY [facility] [id number] Univers 09:00:00 09:00:00 AMELIA lechuga of [facility] 2021-02-23 2021-02-23 Telephone [facility] 1.2.840.114 [id number] Univers 00:00:00 00:00:00 Wondiful A Health 350.1.13.10 ity of [place] 4.2.7.2.686 [place] as Toño?Blea [phone] [facility] 044 [facility] Office [facility] 2021-02-10 2021-02-10 Emergency Kaycee Méndez [facility] 1.2.840.114 [id number] Univers 18:12:00 23:39:00 Sharlene [place] 350.1.13.10 i ty of [place] 4.2.[place].2.[place] [id number] [facility] [address] [place] 2021-02-09 2021-02-09 Hospital [facility] 1.2.857.367 [id number] Univers 13:40:00 23:59:00 Encounter Wondiful A Health 350.1.13.10 ity of [place] 4.2.7.2.686 [place] Toño?Blea [id number] Wy whit [place] [address] [place] Medical Office [facility] 2021-02-09 2021-02-09 Third Mate Lab, Ang - Db [facility] 1.2.840.1 14 [id number] Univers 13:49:05 14:04:05 Visit Claudette Evans A Health 350.1.13.1 0 ity of [place] 4.2.7.2.686 [place] Toño?Blea [phone] Wy whit [place] [address] [facility] Office [facility] 2021-02-09 2021-02-09 Office [facility] 1.2.840.114 [id number] Univers 12:23:13 13:47:12 Visit Wondiful A Health 350.1.13.10 ity of [place] 4.2.7.2.686 [place] as Toño?Blea [phone] [address] Medical Office [facility] 2021-02-09 2021-02-09 Outpatient R CRISTINA [facility] [id number] Univers 13:00:00 13:00:00 WONDIFUL ity o f [facility] 2021-02-08 2021-02-08 Outpatient R NEHEMIAH MEEKSINEz [facility] [id number] Univers 10:20:00 10:20:00 [facility] 2021-02-02 2021-02-02 Outpatient [facility] [id number] Univers 10:30:00 10:30:00 SKYLAR [facility] 2021-02-02 2021-02-02 Telephone [facility] 1.2.840.114 [id number] Univers 00:00:00 00:00:00 Wondiful A Health 350.1.13.10 ity of [place] 4.2.7.2.686 [place] as Toño?Blea [phone] [address] Medical Office [facility] 2021-02-01 2021-02-01 Outpatient [facility] [id number] Univers 08:30:00 08:30:00 [facility] 2021-01-31 2021-01-31 [facility] 1.2.840.114 [id number] Univers 18:44:04 19:41:26 Care [facility] 350.1.13.10 i ty of [place] 4.2.7.2.686 [place] Toño?Blea [phone] [facility] [address] [place] Medical Office [facility] 2021-01-31 2021-01-31 Outpatient [facility] [id number] Univers 19:00:00 19:00:00 FLACO ity o f [facility] 2021-01-31 2021-01-31 Telephone [facility] 1.2.840.114 [id number] Univers 00:00:00 00:00:00 Wondiful A Health 350.1.13.10 ity of [place] 4.2.7.2.686 [place] Toño?Blea [phone] [facility] miki [address] [place] Medical Office [facility] 2021-01-30 2021-01-30 Telephone [facility] 1.2.605.625 [id number] Univers 00:00:00 00:00:00 Sendil Kaycee.HPilar [place] 350.1.13.10 ity of [place] 4.2.7.2.[place] [phone] [facility] 059 [facility] 2021-01-26 2021-01-26 Out[facility] [id number] Univers 14:00:00 14:00:00 [facility]IL [facility] 2021-01-25 2021-01-25 Outpatient R [facility] [id number] Univers 15:00:00 15:00:00 ity [facility] 2021-01-20 2021-01-20 Telemedici [facility] 1.2.840.114 [id number] Univers 16:51:22 17:12:41 ne Visit Skylar A Health 350.1.13.10 ity of [place] 4.2.7.2.686 [place] Toño?Blea [id number] [address] Medical Office [facility] 2021-01-20 2021-01-20 Outpatient [facility] [id number] Univers 16:30:00 16:30:00 SKYLAR ity [facility] 2021-01-19 2021-01-19 Outpatient R [facility] [id number] Univers 10:15:00 10:15:00 KAYLEY ity [facility] 2021-01-14 2021-01-14 OJRDAN Guzman 1.2.840.114 [id number] Univers 00:00:00 00:00:00 Management Kassandra ARCE 350.1.13.10 ity of [facility] 4.2.7.2.686 [place] as [phone] [address] 2021-01-12 2021-01-12 Emergency [facility] 1.2.434.499 [id number] Univers 16:10:00 19:45:00 Karin Lawson 350.1.13.10 i ty of [place] 4.2.[place].2.[place] [id number] [facility] [address] [place] 2021-01-12 2021-01-12 Outpatient Farzana MEDRANO [facility] [id number] Univers 15:20:00 15:20:00 [facility]ANA [facility] 2021-01-12 2021-01-12 Urgent Thony Johnson [facility] 1.2.840.114 [id number] Univers 14:46:57 15:06:57 [facility] 350.1.13.10 ity of [place] 4.2.7.2.686 [place] as Toño?Blea [id number] [address] Medical Office Building 2020-12-26 2020-12-26 Outpatient [facility] [id number] Univers 15:30:00 16:13:32 SENDIL [facility] 2020-12-26 2020-12-26 Office [facility] 1.2.840.114 [id number] Univers 15:30:00 16:13:32 Visit Sendzohra LAWSON 350.1.13.10 ity of [place] 4.[place].2.[place] [id number] [address] 2020-12-26 2020-12-26 Office [facility] 1.2.840.114 [id number] Univers 15:00:32 16:13:32 Visit Sendzohra Lawson 350.1.13.10 ity of [place] 4.2.7.2.[place] [phone] [address] 2020-12-26 2020-12-26 Outpatient R PONCE [facility] [id number] Univers 15:30:00 15:30:00 SENDIL [facility] 2020-11-22 2020-11-22 Outpatient [facility] [id number] Univers 11:00:00 11:00:00 CELINA maradiagachino [facility] 2020-11-10 2020-11-10 Urgent Alissa Collins [facility] 1.2.840.114 [id number] 18:42:46 19:53:43 [facility] 350.1.13.10 [place] 4.2.7.2.686 Professio [phone] nal [address] 2020-11-10 2020-11-10 Outpatient R [facility] [id number] Univers 19:00:00 19:00:00 itchino [facility] 2020-10-31 2020-10-31 Emergency Kaycee Méndez [facility] 1.2.840.114 [id number] 18:52:00 22:15:00 Sharlene Lawson 350.1.13.10 [place] 4.2.7.2.686 [place] [id number] 084 2020-10-31 2020-10-31 Outpatient R NATASHA [facility] [id number] Univers 19:00:00 19:00:00 CARI lechuga o f [facility] 2020-10-31 2020-10-31 Orders Doctor JORDAN 1.2.840.114 [id number] 00:00:00 00:00:00 Only Unassigned, YAZMIN 350.1.13.10 Zeba [facility] 4.2.7.2.686 [id number] 009 2020-10-20 2020-10-20 Emergency Kaycee Méndez [facility] 1.2.840.114 [id number] 14:02:00 17:13:00 Sharleen Lawson 350.1.13.10 [place] 4.2.7.2.686 [place] [id number] 084 2020-10-14 2020-10-14 [facility] Prasanna Vargas [facility] 1.2.840.114 [id number] 10:00:00 23:59:00 Remington Lawson 350.1.13.10 [place] 4.2.7.2.686 [place] [id number] 806 2020-10-14 2020-10-14 Outpatient R APURVA, [facility] [id number] Univers 13:30:00 13:30:00 CELINA [facility] 2020-10-09 2020-10-09 Emergency [facility] 1.2.902.433 [id number] 12:00:00 15:57:00 Anna Jamarcus Lulu 350.1.13.10 [place] 4.2.7.2.686 [place] [id number] 084 2020-10-06 2020-10-06 [facility] 1.2.325.099 [id number] 08:53:00 09:46:44 Visit Jm Lawson 350.1.13.10 [place] 4.2.7.2.686 Professio [phone] nal [address] Building 2020-10-06 2020-10-06 Outpatient PRASANNA LOOMIS [facility] [id number] Univers 09:30:00 09:30:00 [facility] 2020-10-04 2020-10-04 Outpatient Farzana MIXON [facility] [id number] Univers 14:00:00 14:00:[address] [facility] 2020-09-30 2020-09-30 Outpatient Farzana MIXON [facility] [id number] Univers 10:30:00 10:30:[address] [facility] 2020-09-29 2020-09-29 Outpatient Farzana SHAY [facility] [id number] Univers 13:45:00 13:45:00 PREET [facility] 2020-09-06 2020-09-06 Outpatient Farzana VARGAS PRASANNA [facility] [id number] Univers 15:30:00 15:30:00 [facility] 2020-09-02 2020-09-02 Outpatient DARRION QUIROZ [facility] [id number] Univers 15:40:00 15:40:00 DARRION WYATT [facility] 2020-08-31 2020-08-31 Outpatient Farzana SERRA [facility] [id number] Univers 10:30:00 10:30:00 SENDIL [facility] 2020-08-18 2020-08-18 Outpatient R PRASANNA VARGAS [facility] [id number] Univers 09:30:00 09:30:00 ity [facility] 2020-08-11 2020-08-11 Outpatient R PRASANNA VARGAS [facility] [id number] Univers 13:30:00 13:30:00 ity [facility] 2020-08-04 2020-08-04 Outpatient R JUSTINE [facility] [id number] Univers 14:00:00 14:00:00 SCOTT [facility] 2020-07-28 2020-07-28 Outpatient R PONCE [facility] [id number] Univers 10:30:00 10:30:00 [facility]ENDIL [facility] 2020-06-30 2020-06-30 Outpatient R CRISTINA [facility] [id number] Univers 16:15:00 16:15:00 WONDIFUL ity o f [facility] 2020-06-17 2020-06-17 Outpatient R DARRION WYATT [facility] [id number] Univers 15:00:00 15:00:00 DARRION WYATT [facility] 2020-06-16 2020-06-16 Outpatient R PONCE [facility] [id number] Univers 15:30:00 15:30:00 [facility]ENDIL [facility] 2020-06-09 2020-06-09 Outpatient NI YUNG [facility] [id number] Univers 12:30:00 12:30:00 [facility] 2020-06-08 2020-06-08 Outpatient R NI DISLA [facility] [id number] Univers 08:00:00 08:00:00 ity [facility] 2020-06-02 2020-06-02 Outpatient R PONCE [facility] [id number] Univers 09:00:00 09:00:00 [facility]ENDIL [facility] 2020-05-28 2020-05-28 Outpatient R NATASHA [facility] [id number] Univers 10:00:00 10:00:00 CARI ity o f [facility] 2020-05-24 2020-05-24 Outpatient R NI DISLA [facility] [id number] Univers 10:00:00 10:00:00 [facility] 2020-05-19 2020-05-19 Outpatient R OSITO [facility] [facility] [id number] Univers 16:30:00 16:30:00 [facility] 2020-05-17 2020-05-17 Outpatient R DARRION WYATT [facility] [id number] Univers 13:00:00 13:00:00 DARRION WYATT [facility] 2020-05-16 2020-05-16 Outpatient R CRISTINA, [facility] [id number] Univers 16:00:00 16:00:00 WONDIFUL ity o f [facility] 2020-05-08 2020-05-08 Emergency X VIRGIE [facility] ERT [id number] Univers 10:24:00 13:03:00 OLAMIDE [facility] 2020-05-03 2020-05-03 Outpatient R CRISTINA [facility] [id number] Univers 15:00:00 15:00:00 WONDIFUL ity o f [facility] 2020-04-30 2020-05-01 Outpatient X KAVYA [facility] JOSÉ MANUEL [id number] Univers 11:14:00 15:50:00 RODRIGUEZ [facility] 2020-04-30 2020-04-30 Outpatient R JASPAL [facility] [id number] Univers 10:20:00 10:20:00 ROSALES [facility] 2020-04-30 2020-04-30 Outpatient R JASPAL [facility] [id number] Univers 10:15:00 10:15:00 ROSALES [facility] 2020-04-28 2020-04-28 Outpatient R CORETTAOSITO [facility] [id number] Univers 14:00:00 14:00:00 ity [facility] 2020-04-25 2020-04-25 Outpatient R CRISTINA [facility] [id number] Univers 16:15:00 16:15:00 WONDIFUL ity o f [facility] 2020-04-18 2020-04-18 Outpatient R CORETTAJACOBR [facility] [id number] Univers 10:00:00 [facility]-04-15 Outpatient R PONCE [facility] [id number] Univers 10:30:00 10:30:00 SENDIL [facility] 2020-04-12 2020-04-13 Outpatient X MARICRUZ DELUNA [facility] [id number] Univers 13:38:00 16:25:[facility] 2020-03-17 Outpatient R DEYVI [facility] [id number] Univers 16:15:00 16:15:00 [facility] 2020-03-04 2020-03-04 Refill [facility] [id number] 00:00:00 00:00:00 MULTISPEC [id number] IALTY [id number] FREEBORN [id number] [facility] 2020-02-25 2020-02-25 Outpatient R CORETTA OSITO [facility] [id number] Univers [facility]:00[facility] DEYVI [facility] [id number] Univers [facility]:00[facility]00 [facility] 2020-[facility]08 Outpatient R PRASANNA VARGAS [facility] [id number] Univers 10:30:00 10:30:00 [facility] 2020-02-04 2020-02-04 Outpatient R CORETTA OSITO [facility] [id number] Univers 13:30:00 [facility]:30:[facility] 2020-01-23 Outpatient R [facility] [id number] Univers 10:15:00 10:15:00 [facility] 2020-01-21 2020-01-21 Outpatient R CORETTA OSITO [facility] [id number] Univers 13:00:00 13:00:00 [facility] 2020-01-14 2020-01-14 Outpatient R CORETTA OSITO [facility] [id number] Univers 16:00:00 16:00:00 [facility] 2020-01-05 2020-01-05 Outpatient R PRASANNA VARGAS [facility] [id number] Univers 13:45:00 13:45:00 [facility] 2019-12-03 2019-12-03 Outpatient R AKINSIPE, [facility] [id number] Univers 10:30:00 10:30:00 CRICKET ity o f [facility] 2019-11-27 2019-11-27 Outpatient R VANAPHAN, [facility] [id number] Univers 11:00:00 11:00:00 [facility] 2019-11-25 2019-11-25 Outpatient R VANAPHAN, [facility] [id number] Univers 08:00:00 08:00:00 [facility] 2019-11-18 2019-11-18 Outpatient R VANAPHAN, [facility] [id number] Univers 10:00:00 10:00:00 [facility] 2019-09-02 2019-09-02 Outpatient R AKINSIPE, [facility] [id number] Univers 11:00:00 11:00:00 CRICKET ity o f [facility] 2019-08-14 2019-08-14 Outpatient R VANAPHAN, [facility] [id number] Univers 10:15:00 10:15:00 [facility] 2019-08-13 2019-08-13 Outpatient R AKINSIPE, [facility] [id number] Univers 11:00:00 11:00:00 CRICKET ity o f [facility] 2019-08-12 2019-08-12 Outpatient R [facility] [id number] Univers 09:00:00 09:00:00 [facility] 2019-07-20 2019-07-20 Outpatient P ALICIA PRASANNA [facility] CHRIS [id number] Univers 16:06:00 16:06:00 [facility] 2019-07-20 2019-07-20 Outpatient R AKINSIPE, [facility] [id number] Univers 08:15:00 08:15:00 CRICKET ity o f [facility] 2019-07-13 2019-07-13 Outpatient R AKINSIPE, [facility] [id number] Univers 08:00:00 08:00:00 CRICKET lechuga o susan [facility] 2019-07-12 2019-07-12 Outpatient PRASANNA HERRERA [facility] CHRIS [id number] Univers 13:39:00 13:39:00 [facility] 2019-07-06 2019-07-06 Outpatient R BRANDON [facility] [id number] Univers 13:00:00 13:00:00 CRICKET lechuga o susan [facility] 2019-06-13 2019-06-13 Emergency X MARGARITA [facility] ERT [id number] Univers 10:40:46 12:35:00 SARAHI [facility] 2019-05-13 2019-05-14 Outpatient PRASANNA HERRERA [facility] CHRIS [id number] Univers 23:07:00 09:15:00 [facility] Results Test Description Test Time Test Comments Results Result Comments Source TEST, SERUM 2022-08-01 00:23:34 Test Item Value Reference Range Interpretation Comme nts PREG SERUM (test code = 4183608057) Negative WESLEY (test code = WESLEY) Less than 10 IU/L. ?If low titer or ectopic is suspected, resubmit specimen in 48-72 hours. [facility]. METABOLIC PANEL ([id number])2022-07-31 23:58:12 Test Item Value Reference Range Interpretation Comments NA (test code = 140 mmol/L 135-145 2042175632) K (test code = 3.6 mmol/L 3.5-5.0 5539508613) CL (test code = 106 mmol/L 98-108 6837880279) CO2 TOTAL (test code = 21 mmol/L 23-31 L 7882746974) AGAP (test code = 13 2-16 6713524762) BUN (test code = 8 mg/dL 7-23 2462416018) GLUCOSE (test code = 90 mg/dL 70-110 0684037139) CREATININE (test code = 0.90 mg/dL 0.50-1.04 7870915069) TOTAL BILI (test code = 0.5 mg/dL 0.1-1.4 5200164369) CALCIUM (test code = 9.0 mg/dL 8.6-10.6 6369917495) T PROTEIN (test code = 7.8 g/dL 6.3-8.2 9721058709) ALBUMIN (test code = 4.6 g/dL 3.5-5.0 7143377979) ALK PHOS (test code = 63 U/L 34-122 1532800189) ALTv (test code = 23 U/L 5-35 1742-6) AST(SGOT) (test code = 27 U/L 13-40 0799758210) eGFR (test code = 75.1 mL/min/1.73m2 5617434165) WESLEY (test code = WESLEY) Association of [...] tests). Lab Interpretation Abnormal (test code = 17878-0) [facility] 23:57:32 Test Item Value Reference Range Interpretation Comments LIPASE (test code = 6529389317) 55 U/L 0-220 Lab Interpretation (test code = Normal 75255-1) [facility] WITH [id number] 23:47:31 Test Item Value Reference Range Interpretation [...] RDW-SD (test code = 42.5 fL 39.0-49.9 15955-2) RDW-CV (test code = 13.0 % 12.0-15.5 788-0) PLT (test code = 339 See_Comment [Automated 777-3) message] The sy stem which generated this result transmitted reference range : 166 - 358 10*3/ ?L. The reference r david was not used to interpret this result as normal/abnormal . MPV (test code = 9.4 fL 9.5-12.9 L 41555-6) NRBC/100 WBC (test 0.0 See_Comment [Automat ed code = 4784669716) message] The system which generated this result transmitted reference range : 0.0 - 10.0 /100 WBCs. The refer ence range was not u sed to interpret th is result as normal/abnormal . NRBC x10^3 (test code See_Comment [Auto mated = 2070165933) message] The s ystem which generated this result transmitted reference range : 10*3/?L. The reference range was not used to interpret this result as normal/abnormal . GRAN MAT (NEUT) % 51.2 % (test code = 770-8) IMM GRAN % (test code 0.20 % = 1329000102) LYMPH % (test code = 36.5 % 736-9) MONO % (test code = 5.7 % 5905-5) EOS % (test code = 5.9 % 713-8) BASO % (test code = 0.5 % 706-2) GRAN MAT x10^3(ANC) 2.89 10*3/uL 1.88-7.09 (test code = 0629216057) IMM GRAN x10^3 (test 0.00-0.06 code = 4391418533) LYMPH x10^3 (test code 2.06 10*3/uL 1.32-3.29 = 731-0) MONO x10^3 (test code 0.32 10*3/uL 0.33-0.92 L = 742-7) EOS x10^3 (test code = 0.33 10*3/uL 0.03-0.39 711-2) BASO x10^3 (test code 0.03 10*3/uL 0.01-0.07 = 704-7) Lab Interpretation Abnormal (test code = 70184-8) [facility] [id number] 16:14:38 Test Item Value Reference Range Interpretation Comments POCT Molecular Strep (test code = Negative Negative 00459-6) Lab Interpretation (test code = Normal 09095-3) [facility] Center[facility]. METABOLIC PANEL ([id number])2022-05-05 19:35:37 Test Item Value Reference Range Interpretation Comments NA (test code = 139 mmol/L 135-145 1194586229) K (test code = 4.4 mmol/L 3.5-5.0 7445507115) CL (test code = 104 mmol/L 98-108 6465631691) CO2 TOTAL (test code = 22 mmol/L 23-31 L 8571974391) AGAP (test code = 2-16 8906824065) BUN (test code = 11 mg/dL 7-23 0991761766) GLUCOSE (test code = 95 mg/dL 70-110 7166356165) CREATININE (test code = 0.71 mg/dL 0.50-1.04 7230279230) TOTAL BILI (test code = 0.4 mg/dL 0.1-1.1 5668216701) CALCIUM (test code = 9.1 mg/dL 8.6-10.6 7213139998) T PROTEIN (test code = 7.9 g/dL 6.3-8.2 5824008139) ALBUMIN (test code = 4.7 g/dL 3.5-5.0 5570735203) ALK PHOS (test code = 114 U/L 34-122 8420776815) ALTv (test code = 21 U/L 5-35 2-6) AST(SGOT) (test code = 21 U/L 13-40 6311942006) eGFR (test code = mL/min/1.73m2 8343312318) WESLEY (test code = WESLEY) Association of [...] tests). Lab Interpretation Abnormal (test code = 61313-5) [facility] WITH [id number] 19:25:37 Test Item Value Reference Range Interpretation [...] RDW-SD (test code = 41.7 fL 39.0-49.9 13123-7) RDW-CV (test code = 12.7 % 12.0-15.5 788-0) PLT (test code = See_Comment H [Automated 777-3) message] The sy stem which generated this result transmitted reference range : 166 - 358 10*3/ ?L. The reference r david was not used to interpret this result as normal/abnormal . MPV (test code = 8.8 fL 9.5-12.9 L 90548-8) NRBC/100 WBC (test See_Comment [Automat ed code = 9349906024) message] The system which generated this result transmitted reference range : 0.0 - 10.0 /100 WBCs. The refer ence range was not u sed to interpret th is result as normal/abnormal . NRBC x10^3 (test code See_Comment [Auto mated = 5090137934) message] The s ystem which generated this result transmitted reference range : 10*3/?L. The reference range was not used to interpret this result as normal/abnormal . GRAN MAT (NEUT) % 56.1 % (test code = 770-8) IMM GRAN % (test code 0.40 % = 9519999555) LYMPH % (test code = 29.9 % 736-9) MONO % (test code = 5.4 % 5905-5) EOS % (test code = 7.8 % 713-8) BASO % (test code = 0.4 % 706-2) GRAN MAT x10^3(ANC) 3.75 10*3/uL 1.88-7.09 (test code = 1396026881) IMM GRAN x10^3 (test 0.03 10*3/uL 0.00-0.06 code = 2681405594) LYMPH x10^3 (test code 2.00 10*3/uL 1.32-3.29 = 731-0) MONO x10^3 (test code 0.36 10*3/uL 0.33-0.92 = 742-7) EOS x10^3 (test code = 0.52 10*3/uL 0.03-0.39 H 711-2) BASO x10^3 (test code 0.03 10*3/uL 0.01-0.07 = 704-7) Lab Interpretation Abnormal (test code = 87950-4) [facility] CenterPOMS [id number] 19:00:00 Test Item Value Reference Range Interpretation Comments POCT PREG (test code = 1605) negative On board controls acceptable with present C Line (test code = 3574) POCT PREG LOT # (test code = 3575) [id number] POCT PREG TEST DATE (test 08-11-2023 code = 3576) Lab Interpretation (test code = Normal 33529-5) [facility] WITH [id number] 15:21:11 Test Item Value Reference Range Interpretation [...] RDW-SD (test code = 42.6 fL 39.0-49.9 02938-5) RDW-CV (test code = 12.9 % 12.0-15.5 788-0) PLT (test code = See_Comment H [Automated 777-3) message] The sy stem which generated this result transmitted reference range : 166 - 358 10*3/ ?L. The reference r david was not used to interpret this result as normal/abnormal . MPV (test code = 9.1 fL 9.5-12.9 L 87333-1) NRBC/100 WBC (test See_Comment [Automat ed code = 2782138089) message] The system which generated this result transmitted reference range : 0.0 - 10.0 /100 WBCs. The refer ence range was not u sed to interpret th is result as normal/abnormal . NRBC x10^3 (test code See_Comment [Auto mated = 5210317114) message] The s ystem which generated this result transmitted reference range : 10*3/?L. The reference range was not used to interpret this result as normal/abnormal . GRAN MAT (NEUT) % 56.8 % (test code = 770-8) IMM GRAN % (test code 0.30 % = 9609830656) LYMPH % (test code = 29.5 % 736-9) MONO % (test code = 4.3 % 5905-5) EOS % (test code = 8.3 % 713-8) BASO % (test code = 0.8 % 706-2) GRAN MAT x10^3(ANC) 3.57 10*3/uL 1.88-7.09 (test code = 5291885638) IMM GRAN x10^3 (test 0.00-0.06 code = 1518470031) LYMPH x10^3 (test code 1.85 10*3/uL 1.32-3.29 = 731-0) MONO x10^3 (test code 0.27 10*3/uL 0.33-0.92 L = 742-7) EOS x10^3 (test code = 0.52 10*3/uL 0.03-0.39 H 711-2) BASO x10^3 (test code 0.05 10*3/uL 0.01-0.07 = 704-7) Lab Interpretation Abnormal (test code = 73774-5) [facility] CenterCOMP. METABOLIC PANEL (36100)2022-04-26 15:12:13 Test Item Value Reference Range Interpretation Comments NA (test code = 141 mmol/L 135-145 8010855349) K (test code = 3.4 mmol/L 3.5-5.0 L 2493724327) CL (test code = 104 mmol/L 98-108 0065641320) CO2 TOTAL (test code = 23 mmol/L 23-31 6939882899) AGAP (test code = 2-16 4307969056) BUN (test code = 9 mg/dL 7-23 6874093800) GLUCOSE (test code = 101 mg/dL 70-110 6394561881) CREATININE (test code = 0.82 mg/dL 0.50-1.04 5459719040) TOTAL BILI (test code = 0.7 mg/dL 0.1-1.1 0756041195) CALCIUM (test code = 9.3 mg/dL 8.6-10.6 6680849140) T PROTEIN (test code = 8.1 g/dL 6.3-8.2 8717804109) ALBUMIN (test code = 4.7 g/dL 3.5-5.0 0609166260) ALK PHOS (test code = 108 U/L 34-122 7696281854) ALTv (test code = 24 U/L 5-35 1742-6) AST(SGOT) (test code = 49 U/L 13-40 H 1614071954) eGFR (test code = mL/min/1.73m2 1291803968) WESLEY (test code = WESLEY) Association of [...] tests). Lab Interpretation Abnormal (test code = 91161-9) [facility] [id number] 14:45:00 Test Item Value Reference Range Interpretation Comments POCT PREG (test code = 1605) negative On board controls acceptable with present C Line (test code = 3574) POCT PREG LOT # (test code = 3575) [id number] POCT PREG TEST DATE (test 08/11/2023 code = 3576) Lab Interpretation (test code = Normal 77340-6) [facility] [id number] 01:22:00 Test Item Value Reference Range Interpretation Comments POCT PREG (test code = 1605) Negative On board controls acceptable with Present C Line (test code = 3574) POCT PREG LOT # (test code = 3575) [id number] POCT PREG TEST DATE (test 08-11-2023 code = 3576) Lab Interpretation (test code = Normal 63438-5) [facility] METABOLIC PANEL (NA, K, CL, CO2, GLUCOSE, BUN, CREATININE, CA)2022-04-07 23:01:10 Test Item Value Reference Range Interpretation Comments NA (test code = 138 mmol/L 135-145 9747897588) K (test code = 4.3 mmol/L 3.5-5.0 0305391651) CL (test code = 107 mmol/L 98-108 3930993408) CO2 TOTAL (test code = 20 mmol/L 23-31 L 0630536009) AGAP (test code = 2-16 1734988589) BUN (test code = 9 mg/dL 7-23 9668052653) GLUCOSE (test code = 204 mg/dL 70-110 H 9478572386) CREATININE (test code = 0.74 mg/dL 0.50-1.04 1287925750) CALCIUM (test code = 9.1 mg/dL 8.6-10.6 8882029835) eGFR (test code = mL/min/1.73m2 9999752157) WESLEY (test code = WESLEY) Association of [...] tests). Lab Interpretation Abnormal (test code = 38134-3) [facility] WITH [id number] 22:57:34 Test Item Value Reference Range Interpretation Comments WBC (test code = See_Comment [Automated 3633-2) message] The sy stem which generated this result transmitted reference range : 4.30 - 11.10 10*3/?L. The reference range was not used to interpret this result as normal/abnormal . RBC (test code = See_Comment [Automated 019-8) message] The sy stem which generated this [...] RDW-SD (test code = 42.9 fL 39.0-49.9 15979-8) RDW-CV (test code = 13.4 % 12.0-15.5 788-0) PLT (test code = See_Comment H [Automated 107-3) message] The sy stem which generated this result transmitted reference range : 166 - 358 10*3/ ?L. The reference r david was not used to interpret this result as normal/abnormal . MPV (test code = 8.9 fL 9.5-12.9 L 45240-3) NRBC/100 WBC (test See_Comment [Automat ed code = 4120965184) message] The system which generated this result transmitted reference range : 0.0 - 10.0 /100 WBCs. The refer ence range was not u sed to interpret th is result as normal/abnormal . NRBC x10^3 (test code See_Comment [Auto mated = 8965510975) message] The s ystem which generated this result transmitted reference range : 10*3/?L. The reference range was not used to interpret this result as normal/abnormal . GRAN MAT (NEUT) % 88.7 % (test code = 770-8) IMM GRAN % (test code 0.70 % = 1692172570) LYMPH % (test code = 9.4 % 736-9) MONO % (test code = 0.9 % 5905-5) EOS % (test code = 0.1 % 713-8) BASO % (test code = 0.2 % 706-2) GRAN MAT x10^3(ANC) 7.81 10*3/uL 1.88-7.09 H (test code = 5905185035) IMM GRAN x10^3 (test 0.06 10*3/uL 0.00-0.06 code = 3132426616) LYMPH x10^3 (test code 0.83 10*3/uL 1.32-3.29 L = 731-0) MONO x10^3 (test code 0.08 10*3/uL 0.33-0.92 L = 742-7) EOS x10^3 (test code = 0.03-0.39 L 711-2) BASO x10^3 (test code 0.01-0.07 = 704-7) Lab Interpretation Abnormal (test code = 07214-8) [facility] [id number] 14:07:00 Test Item Value Reference Range Interpretation Comments POCT PREG (test code = 1605) negative On board controls acceptable with present C Line (test code = 3574) POCT PREG LOT # (test code = 3575) [id number] POCT PREG TEST DATE (test 08/11/2023 code = 3576) Lab Interpretation (test code = Normal 66048-4) [facility] [id number] 13:52:00 Test Item Value Reference Range Interpretation Comments POCT PREG (test code = 1605) negative On board controls acceptable with C present Line (test code = 3574) Lab Interpretation (test code = Normal 15073-2) [facility] [id number] 14:59:00 Test Item Value Reference Range Interpretation Comments POCT PREG (test code = 1605) negative On board controls acceptable with yes C Line (test code = 3574) POCT PREG LOT # (test code = 3575) [id number] POCT PREG TEST DATE (test 07/11/2023 code = 3576) Lab Interpretation (test code = Normal 58658-2) [facility] METABOLIC PANEL (06484)2022 17:51:43 Test Item Value Reference Range Interpretation Comments NA (test code = 139 mmol/L 135-145 9521614194) K (test code = 4.1 mmol/L 3.5-5 4837484268) CL (test code = 104 mmol/L 98-108 4083505345) CO2 TOTAL (test code = 22 mmol/L 23-31 L 9672443025) AGAP (test code = 2-16 5909427407) BUN (test code = 7 mg/dL 7-23 8840554674) GLUCOSE (test code = 114 mg/dL 70-110 H 3988949626) CREATININE (test code = 0.69 mg/dL 0.5-1.04 8954237458) TOTAL BILI (test code = 0.4 mg/dL 0.1-1.6 9188203178) CALCIUM (test code = 9.7 mg/dL 8.6-10.6 9138824271) T PROTEIN (test code = 7.2 g/dL 6.3-8.2 0156510510) ALBUMIN (test code = 4.6 g/dL 3.5-5 4876959559) ALK PHOS (test code = 65 U/L 34-122 9469737451) ALTv (test code = 15 U/L 5-35 1742-6) AST(SGOT) (test code = 19 U/L 13-40 0603956345) eGFR (test code = mL/min/1.73m2 6853510568) WESLEY (test code = WESLEY) Association of [...] tests). Lab Interpretation Abnormal (test code = 84214-6) [facility] WITH [id number] 17:40:24 Test Item Value Reference Range Interpretation Comments WBC (test code = See_Comment [Automated 5420-2) message] The sy stem which generated this result transmitted reference range : 4.30 - 11.10 10*3/?L. The reference range was not used to interpret this result as normal/abnormal . RBC (test code = See_Comment [Automated 372-4) message] The sy stem which generated this [...] RDW-SD (test code = 43.1 fL 39-49.9 18690-0) RDW-CV (test code = 13.2 % 12-15.5 788-0) PLT (test code = See_Comment [Automated 777-3) message] The sy stem which generated this result transmitted reference range : 166 - 358 10*3/ ?L. The reference r david was not used to interpret this result as normal/abnormal . MPV (test code = 9.5 fL 9.5-12.9 69631-4) NRBC/100 WBC (test See_Comment [Automat ed code = 4998461201) message] The system which generated this result transmitted reference range : 0.0 - 10.0 /100 WBCs. The refer ence range was not u sed to interpret th is result as normal/abnormal . NRBC x10^3 (test code See_Comment [Auto mated = 5286692126) message] The s ystem which generated this result transmitted reference range : 10*3/?L. The reference range was not used to interpret this result as normal/abnormal . GRAN MAT (NEUT) % 57.8 % (test code = 770-8) IMM GRAN % (test code 0.20 % = 7927384582) LYMPH % (test code = 30.8 % 736-9) MONO % (test code = 5.1 % 5905-5) EOS % (test code = 5.6 % 713-8) BASO % (test code = 0.5 % 706-2) GRAN MAT x10^3(ANC) 3.61 10*3/uL 1.88-7.09 (test code = 2845145524) IMM GRAN x10^3 (test 0-0.06 code = 1648519489) LYMPH x10^3 (test code 1.92 10*3/uL 1.32-3.29 = 731-0) MONO x10^3 (test code 0.32 10*3/uL 0.33-0.92 L = 742-7) EOS x10^3 (test code = 0.35 10*3/uL 0.03-0.39 711-2) BASO x10^3 (test code 0.03 10*3/uL 0.01-0.07 = 704-7) Lab Interpretation Abnormal (test code = 36200-3) [facility] [id number] 17:27:00 Test Item Value Reference Range Interpretation Comments POCT PREG (test code = 1605) negative On board controls acceptable with present C Line (test code = 3574) POCT PREG LOT # (test code = 3575) [id number] POCT PREG TEST DATE (test code = 3576) Lab Interpretation (test code = Normal 34929-3) [facility] 12:45:21 Test Item Value Reference Range Interpretation Comments LIPASE (test code = 4802686504) 41 U/L 0-220 Lab Interpretation (test code = Normal 49507-4) [facility] [id number] 10:57:00 Test Item Value Reference Range Interpretation Comments POCT PREG (test code = 1605) Negative On board controls acceptable with Present C Line (test code = 3574) POCT PREG LOT # (test code = 3575) [id number] POCT PREG TEST DATE (test 03/12/2023 code = 3576) Lab Interpretation (test code = Normal 55013-5) [facility] (NA, K, CL, CO2, GLUCOSE, BUN, CREATININE, CA)2022-01-18 10:56:51 Test Item Value Reference Range Interpretation Comments NA (test code = 137 mmol/L 135-145 3247144679) K (test code = 4.6 mmol/L 3.5-5 Slight 0997745809) hemolysis CL (test code = 108 mmol/L 98-108 1749831571) CO2 TOTAL (test code 22 mmol/L 23-31 L = 9566415206) AGAP (test code = 2-16 9911484047) BUN (test code = 11 mg/dL 7-23 Slight 2425254802) hemolysis GLUCOSE (test code = 83 mg/dL 70-110 8294189452) CREATININE (test code 0.68 mg/dL 0.5-1.04 = 3582370420) CALCIUM (test code = 8.8 mg/dL 8.6-10.6 5449864907) eGFR (test code = mL/min/1.73m2 5386796383) WESLEY (test code = WESLEY) Association of [...] tests). Lab Interpretation Abnormal (test code = 29363-8) [facility] CenterHEPAT[facility] FUNCTION PAN[facility] (75353) (ALB,T.PRO,BILI T,BU/BC,ALT,AST,ALK PHOS)2022-01-18 10:56:51 Test Item Value Reference Range Interpretation Comments TOTAL BILI (test code = 1244815137) 0.6 mg/dL 0.1-1.1 BILI UNCON (test code = 7393842382) 0.1 mg/dL 0.1-1.1 BILI CONJ (test code = 1024200764) 0.0 mg/dL 0-0.3 T PROTEIN (test code = 9534154081) 8.6 g/dL 6.3-8.2 H ALBUMIN (test code = 4869154221) 5.1 g/dL 3.5-5 H ALK PHOS (test code = 2229084494) 79 U/L 34-122 ALTv (test code = 1742-6) 117 U/L 5-35 H AST(SGOT) (test code = 4836531144) 163 U/L 13-40 H Lab Interpretation (test code = Abnormal 83019-6) [facility], [id number] 10:54:25 Test Item Value Reference Range Interpretation Comments PREG SERUM (test code Negative = 7858869007) WESLEY (test code = WESLEY) Less than 10 IU/L. ?If low titer or ectopic is suspected, resubmit specimen in 48-72 hours. [facility] [id number] 10:40:49 Test Item Value Reference Range Interpretation Comments WBC (test code = See_Comment [Automated 4747-2) message] The sy stem which generated this result transmitted reference range : 4.30 - 11.10 10*3/?L. The reference range was not used to interpret this result as normal/abnormal . RBC (test code = See_Comment [Automated 869-8) message] The sy stem which generated this [...] RDW-SD (test code = 45.3 fL 39-49.9 82889-6) RDW-CV (test code = 14.5 % 12-15.5 788-0) PLT (test code = See_Comment [Automated 777-3) message] The sy stem which generated this result transmitted reference range : 166 - 358 10*3/ ?L. The reference r david was not used to interpret this result as normal/abnormal . MPV (test code = 9.5 fL 9.5-12.9 03999-5) NRBC/100 WBC (test See_Comment [Automat ed code = [id number]) message] The system which generated this result transmitted reference range : 0.0 - 10.0 /100 WBCs. The refer ence range was not u sed to interpret th is result as normal/abnormal . NRBC x10^3 (test code See_Comment [Auto mated = [id number]) message] The s ystem which generated this result transmitted reference range : 10*3/?L. The reference range was not used to interpret this result as normal/abnormal . GRAN MAT (NEUT) % 47.6 % (test code = 770-8) IMM GRAN % (test code 0.60 % = 9159059245) LYMPH % (test code = 39.9 % 736-9) MONO % (test code = 5.9 % 5905-5) EOS % (test code = 5.3 % 713-8) BASO % (test code = 0.7 % 706-2) GRAN MAT x10^3(ANC) 4.45 10*3/uL 1.88-7.09 (test code = 1623384384) IMM GRAN x10^3 (test 0.06 10*3/uL 0-0.06 code = 0137147805) LYMPH x10^3 (test code 3.74 10*3/uL 1.32-3.29 H = 731-0) MONO x10^3 (test code 0.55 10*3/uL 0.33-0.92 = 742-7) EOS x10^3 (test code = 0.50 10*3/uL 0.03-0.39 H 711-2) BASO x10^3 (test code 0.07 10*3/uL 0.01-0.07 = 704-7) Lab Interpretation Abnormal (test code = 47053-7) [id number]:31[facility]00 Test Item Value Reference Range Interpretation Comments POCT PREG (test code = 1605) Negative On board controls acceptable with C Yes Line (test code = 3574) POCT PREG LOT # (test code = 3575) POCT PREG TEST DATE (test code = 3576) [facility] URINALYSIS W/O SPECIFIC [id number] 18:31:00 Test Item Value Reference Range Interpretation [...] code = 3257) Trace Negative - Negative [facility] Notes Date/Time Note Provider Source 2022-12-03 Formatting of this note might be differe nt from the original. Blayne Silva RN [facility] 08:57:03-00:00 Patient has an appointment 12/12/22. Blayne Silva RN 12/03/2022 8:57 AM "
[2023-01-02] MEDS ORDERED: ONDANSETRON 4 MG/2 ML VIAL ONE (10:51)
[2023-01-02] MEDS ORDERED: HALOPERIDOL LACT 5 MG/ML INJ ONE (10:51)
[2023-01-02] MEDS ORDERED: NA CHLORIDE 0.9% 1,000 ML ONE (10:51)
[2023-01-02 10:59] LABS: Absolute Lymphocytes (CBC) 1.8 K/uL (0.7-4.9); Hematocrit 37.8 % (36.0-45.0); Lymphocytes % 32.3 % (15.3-44.8); MCV 85.1 fL (80-100); MPV 8.2 fL (7.6-11.3); Platelets 304 thou/uL (152-406); RBC Red Blood Cell Count 4.44 M/uL (3.86-4.86)
[2023-01-02 11:01] LABS: Specific Gravity > 1.030 (1.005-1.030)
[2023-01-02 11:10] LABS: Specific Gravity > 1.030 (1.005-1.030); Urine Bacteria None Seen /HPF (<20); Urine Bilirubin NEGATIVE (Negative); Urine Blood 3+ (OVER) (Negative); Urine Clarity Extremely Turbid (Clear); Urine Color Light-Orange (Yellow); Urine Glucose NEGATIVE (Negative); Urine Mucus 4+ /HPF (None Seen); Urine Protein 2+ (Negative); Urine RBC >50 /HPF (None Seen); Urine Urobilinogen Normal (Normal)
--- NOTE | 2023-01-02 11:19 | EDPHYS ---
Physician Documentation [facility] Name: Natanael Dyson Age: 27 yrs Sex: Female : 1995 Arrival Date: 01/02/2023 Time: 10:02 Bed 5 Private MD: ED Physician Justin Estrella HPI: 01/02 10:39 This 27 yrs old Female presents to ER via EMS with complaints of Fall Injury. rudolph 10:39 Details of fall: The patient fell from an upright position, while standing. Onset: The rudolph symptoms/episode began/occurred just prior to arrival. Associated injuries: The patient sustained injury to the chest, injury to the abdomen. Severity of symptoms: At their worst the symptoms were mild, in the emergency department the symptoms are unchanged. The patient has experienced similar episodes in the past, a few times. 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 - Social history:: Smoking status: Patient denies any tobacco usage or history of. - Family history:: not pertinent. ROS: 10:39 Constitutional: Negative for fever, chills, and weight loss, Eyes: Negative for injury, rudolph pain, redness, and discharge, ENT: Negative for injury, pain, and discharge, Neck: Negative for injury, pain, and swelling, Cardiovascular: Negative for chest pain, palpitations, and edema, Respiratory: Negative for shortness of breath, cough, wheezing, and pleuritic chest pain, Abdomen/GI: Negative for abdominal pain, nausea, vomiting, diarrhea, and constipation, Back: Negative for injury and pain, : Negative for injury, bleeding, discharge, and swelling, MS/Extremity: Negative for injury and deformity, Skin: Negative for injury, rash, and discoloration, Neuro: Negative for headache, weakness, numbness, tingling, and seizure, Psych: Negative for depression, anxiety, suicide ideation, homicidal ideation, and hallucinations, Allergy/Immunology: Negative for hives, rash, and allergies, Endocrine: Negative for neck swelling, polydipsia, polyuria, polyphagia, and marked weight changes, Hematologic/Lymphatic: Negative for swollen nodes, abnormal bleeding, and unusual bruising. Exam: 10:53 Constitutional: This is a well developed, well nourished patient who is awake, alert, rudolph and in no acute distress. Head/Face: Normocephalic, atraumatic. Eyes: Pupils equal round and reactive to light, extra-ocular motions intact. Lids and lashes normal. Conjunctiva and sclera are non-icteric and not injected. Cornea within normal limits. Periorbital areas with no swelling, redness, or edema. ENT: Nares patent. No nasal discharge, no septal abnormalities noted. Tympanic membranes are normal and external auditory canals are clear. Oropharynx with no redness, swelling, or masses, exudates, or evidence of obstruction, uvula midline. Mucous membranes moist. Neck: Trachea midline, no thyromegaly or masses palpated, and no cervical lymphadenopathy. Supple, full range of motion without nuchal rigidity, or vertebral point tenderness. No Meningismus. Cardiovascular: Regular rate and rhythm with a normal S1 and S2. No gallops, murmurs, or rubs. Normal PMI, no JVD. No pulse deficits. Respiratory: Lungs have equal breath sounds bilaterally, clear to auscultation and percussion. No rales, rhonchi or wheezes noted. No increased work of breathing, no retractions or nasal flaring. Abdomen/GI: Soft, non-tender, with normal bowel sounds. No distension or tympany. No guarding or rebound. No evidence of tenderness throughout. Back: No spinal tenderness. No costovertebral tenderness. Full range of motion. Skin: Warm, dry with normal turgor. Normal color with no rashes, no lesions, and no evidence of cellulitis. MS/ Extremity: Pulses equal, no cyanosis. Neurovascular intact. Full, normal range of motion. Neuro: Awake and alert, GCS 15, oriented to person, place, time, and situation. Cranial nerves II-XII grossly intact. Motor strength 5/5 in all extremities. Sensory grossly intact. Cerebellar exam normal. Normal gait. Psych: Awake, alert, with orientation to person, place and time. Behavior, mood, and affect are within normal limits. 10:53 Chest/axilla: Inspection: normal, no acute changes, Palpation: tenderness, that is mild, of the left breast, Axilla: are normal, Breasts: are normal, Lymph nodes: lymphadenopathy is not appreciated. Vital Signs: 10:05 BP 116 / 90; Pulse 97; Resp 19; Temp 99; Pulse Ox 98.4% ; rs5 11:00 BP 118 / 80; Pulse 82; Resp 18; Pulse Ox 100% on R/A; rs5 11:49 BP 120 / 84; Pulse 80; Resp 17; Pulse Ox 99% on R/A; rs5 MDM: 10:06 Patient medically screened. [facility] 10:54 Differential diagnosis: contusion, fracture, sprain, strain. Data reviewed: vital rudolph signs, nurses notes, lab test result(s), radiologic studies, plain films. Consideration of Admission/Observation Escalation of care including admission/observation considered. I considered the following discharge prescriptions or medication management in the emergency department Medications were administered in the Emergency Department. See MAR. Independent interpretation of the following test(s) in the Emergency Department X-Ray: My interpretation is cxr. Test considered but Not performed: CT: no ct c/a/p. Care significantly affected by the following chronic conditions: anxiety, depression, kidney stones. Counseling: I had a detailed discussion with the patient and/or guardian regarding the historical points, exam findings, and any diagnostic results supporting the discharge/admit diagnosis, lab results, radiology results. 01/02 10:32 Order name: Urinalysis w/ reflexes; Complete Time: 11:16 [facility] 01/02 10:32 Order name: PREGU; Complete Time: 11:16 [facility] 01/02 10:32 Order name: CBC with Diff; Complete Time: 11:16 [facility] 01/02 11:16 Order name: Urine Culture [facility]CO 01/02 10:32 Order name: Chest Pa And Lat (2 Views) XRAY; Complete Time: 11:56 [facility] 01/02 10:32 Order name: IV Saline Lock; Complete Time: 10:54 [facility] 01/02 10:32 Order name: Labs collected and sent; Complete Time: 10:54 [facility] 01/02 11:49 Order name: Labs - recollect needed: recollect green and lavendertop bd Administered Medications: 10:53 Not Given (Duplicate Order): Prochlorperazine TX Suppository 25 mg TX once [facility] 10:54 Drug: Haloperidol IVP 2.5 mg/50 mL 2.5 mg Route: IVP; Site: right wrist; hb 11:15 Follow up: No adverse effects noted rs5 10:55 Drug: NS 0.9% IV 1000 ml Route: IV; Rate: 1 bolus; Site: right wrist; hb 10:55 Drug: Ondansetron IVP 4 mg Route: IVP; Site: right wrist; hb 11:15 Follow up: No adverse effects noted rs5 11:32 Drug: Rocephin IV 1 grams Route: IV; Rate: per protocol; Site: right hand; rs5 Disposition Summary: 01/02/23 11:18 Discharge Ordered Location: Home rudolph Problem: new rudolph Symptoms: have improved rudolph Condition: Stable rudolph Diagnosis - Fall on same level, unspecified rudolph - Vomiting rudolph - Strain of muscle and tendon of front wall of thorax rudolph - UTI/ Urinary tract infection, site not specified rudolph Followup: rudolph - With: Private Physician - When: 2 - 3 days - Reason: Recheck today's complaints, Continuance of care, Re-evaluation by your physician Discharge Instructions: - Discharge Summary Sheet rudolph - Chest Wall Pain rudolph - Chest Contusion, Adult rudolph - Fall Prevention in the Home, Adult rudolph - Chest Wall Pain, [id number] rudolph - Fall Prevention in the Home, Adult, [id number] rudolph - Vomiting, Adult rudolph - Blunt Chest Trauma [facility] Forms: - Medication Reconciliation Form [facility] - Thank You Letter [facility] - Antibiotic Education rudolph - Prescription Opioid Use rudolph - Patient Portal Instructions [facility] - Leadership Thank You Letter [facility] Prescriptions: - ondansetron 4 mg Oral Tablet,disintegrating - take 1 tablet by ORAL route every 8 hours for 5 days as needed for nausea and rudolph vomiting; 20 tablet; Refills: 0, Product Selection Permitted - Macrobid 100 mg Oral Capsule - take 1 capsule by ORAL route every 12 hours for 7 days; 14 capsule; Refills: 0, [facility] Product Selection Permitted - promethazine 25 mg Oral Tablet - take 1 tablet by ORAL route every 6 hours As needed; 20 tablet; Refills: 0, [facility] Product Selection Permitted Signatures: Dispatcher [employer] Miley Delgado Corey, MD MD cha Baxter, Heather, RN RN Brody Sevilla RN RN rs5
--- NOTE | 2023-01-02 11:19 | ER ---
Nurse's Notes [facility] Name: Natanael Dyson Age: 27 yrs Sex: Female : 1995 Arrival Date: 01/02/2023 Time: 10:02 Bed 5 Private MD: Diagnosis: Fall on same level, unspecified;Vomiting;Strain of muscle and tendon of front wall of thorax;UTI/ Urinary tract infection, site not specified Presentation: 01/02 10:05 Chief complaint: EMS states: Pt slipped and fell while showering and hit her stomach. rs5 Pt reports having gallbladder removed 2 weeks ago. Coronavirus screen: Client denies travel out of the [place] in the last 14 days. At this time, the client does not indicate any symptoms associated with coronavirus-19. Ebola Screen: Patient denies exposure to infectious person. Patient denies travel to an Ebola-affected area in the 21 days before illness onset. Initial Sepsis Screen: Does the patient meet any 2 criteria? No. Patient's initial sepsis screen is negative. Does the patient have a suspected source of infection? No. Patient's initial sepsis screen is negative. Risk Assessment: Do you want to hurt yourself or someone else? Patient reports no desire to harm self or others. Onset of symptoms was January 02, 2023 at 08:00. 10:05 Method Of Arrival: EMS: [facility] rs5 10:05 Acuity: THIERNO 3 rs5 10:05 Care prior to arrival: Medication(s) given: zofran 4 mg, 100 mcg fentanyl IV. 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 - Social history:: Smoking status: Patient denies any tobacco usage or history of. - Family history:: not pertinent. Screenin:05 [facility] ED Fall Risk Assessment (Adult) History of falling in the last 3 months, rs5 including since admission Yes- fall prone (multiple falls) (3 pts) Confusion or Disorientation No (0 pts) Intoxicated or Sedated No (0 pts) Impaired Gait No (0 pts) Mobility Assist Device Used No (0 pt) Altered Elimination No (0 pt) Score/Fall Risk Level 3 or more points = High Risk Oriented to surroundings, Maintained a safe environment, Educated pt \T\ family on fall prevention, incl call for assistance when getting out of bed, Assessed \T\ reinforced patient's understanding of fall precautions, Hourly rounding (assess needs \T\ fall precautionary measures) done. Abuse screen: Denies threats or abuse. Nutritional screening: No deficits noted. Tuberculosis screening: No symptoms or risk factors identified. Assessment: 10:05 General: Appears in no apparent distress. uncomfortable, Behavior is calm, cooperative. rs5 Pain: Complains of pain in left upper quadrant Pain does not radiate. Pain currently is 7 out of 10 on a pain scale. Quality of pain is described as sharp, stabbing, Pain began 2 hours ago. Is continuous, Alleviated by nothing. Aggravated by repositioning. Neuro: Level of Consciousness is awake, alert, obeys commands, Oriented to person, place, time, situation. Cardiovascular: Rhythm is regular. Respiratory: Airway is patent Respiratory effort is even, unlabored, Respiratory pattern is regular, symmetrical. GI: Abdomen is round non-distended, Bowel sounds present X 4 quads. Abd is soft and non tender X 4 quads. Reports upper abdominal pain, nausea, Patient currently denies vomiting. : No signs and/or symptoms were reported regarding the genitourinary system. EENT: No signs and/or symptoms were reported regarding the EENT system. Derm: Skin is pink, warm \T\ dry. Musculoskeletal: Range of motion: intact in all extremities. 11:15 Reassessment: Patient is alert, oriented x 3, equal unlabored respirations, skin rs5 warm/dry/pink. Patient states feeling better. Call light within reach, side rails up X2, bed in lowest position. 11:49 Reassessment: Patient is alert, oriented x 3, equal unlabored respirations, skin rs5 warm/dry/pink. To bedside for recollect green top, pt refused. Pt reports feeling anxious and wanting to leave. Pt up for discharge, notified. Vital Signs: 10:05 BP 116 / 90; Pulse 97; Resp 19; Temp 99; Pulse Ox 98.4% ; rs5 11:00 BP 118 / 80; Pulse 82; Resp 18; Pulse Ox 100% on R/A; rs5 11:49 BP 120 / 84; Pulse 80; Resp 17; Pulse Ox 99% on R/A; rs5 ED Course: 10:05 Patient arrived in ED. aa5 10:05 Patient has correct armband on for positive identification. Bed in low position. Call rs5 light in reach. Side rails up X2. 10:05 Maintain EMS IV. Dressing intact. Good blood return noted. Site clean \T\ dry. Gauge \T\ rs 5 site: 20 g right hand . 10:06 Justin Estrella MD is Attending Physician. rudolph 10:09 Triage completed. rs5 10:16 Brody Sevilla, ROSEY is Primary Nurse. rs5 10:54 CMP Sent. hb 10:54 Lipase Sent. hb 10:55 CBC with Diff Sent. hb 10:55 PREGU Sent. hb 10:55 Urinalysis w/ reflexes Sent. hb 11:07 Chest Pa And Lat (2 Views) XRAY In Process Unspecified. EDMS 11:49 No provider procedures requiring assistance completed. IV discontinued, intact, rs5 bleeding controlled, No redness/swelling at site. Pressure dressing applied. 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 bd Administered Medications: 10:53 Not Given (Duplicate Order): Prochlorperazine SD Suppository 25 mg SD once rudolph 10:54 Drug: Haloperidol IVP 2.5 mg/50 mL 2.5 mg Route: IVP; Site: right wrist; hb 11:15 Follow up: No adverse effects noted rs5 10:55 Drug: NS 0.9% IV 1000 ml Route: IV; Rate: 1 bolus; Site: right wrist; hb 10:55 Drug: Ondansetron IVP 4 mg Route: IVP; Site: right wrist; hb 11:15 Follow up: No adverse effects noted rs5 11:32 Drug: Rocephin IV 1 grams Route: IV; Rate: per protocol; Site: right hand; rs5 Medication: 11:49 VIS not applicable for this client. rs5 Intake: Outcome: 11:18 Discharge ordered by . rudolph 11:49 Discharged to home ambulatory. rs5 11:49 Condition: stable rs5 11:49 Discharge instructions given to patient, Instructed on discharge instructions, follow up and referral plans. medication usage. 12:00 Patient left the ED. rs5 Signatures: Dispatcher [employer] EDMS Miley Hernández Corey, MD MD cha Calderon, Audri RN RN aa5 Judi Rich, RN RN Brody Sevilla RN RN rs5 Corrections: (The following items were deleted from the chart) 10:19 10:05 Chief complaint: EMS states: Pt slipped and fell while showering and hit her rs5 stomach. Pt reports having gallbladder removed 2 weeks ago rs5 11:35 11:33 Reassessment: Patient is alert, oriented x 3, equal unlabored respirations, skin rs5 warm/dry/pink. Patient states feeling better. rs5 11:36 11:15 Reassessment: Patient is alert, oriented x 3, equal unlabored respirations, skin rs5 warm/dry/pink. Patient states feeling better. rs5 13:54 11:49 Reassessment: Patient is alert, oriented x 3, equal unlabored respirations, skin rs5 warm/dry/pink. Pt reports feeling anxious and wanting to leave. Pt up for discharge, notified. rs5
[2023-01-02] MEDS ORDERED: CEFTRIAXONE 1000 MG/VIAL ONE (11:36)
--- NOTE | 2023-01-02 11:40 | RAD REPORT ---
EXAM DESCRIPTION: Fadia Novoa And Doris (2 Views)01/02/2023 11:07 am CLINICAL HISTORY: Cough COMPARISON: December 27, 2022 FINDINGS: The lungs appear clear of acute infiltrate. The heart is normal size IMPRESSION: No acute abnormalities displayed
[2023-01-02 12:04] VITALS: TEMP 99
[2023-01-02 12:06] VITALS: BP 120/84; O2SAT 99
== END 2023-01-02 12:00 | disposition home or self-care (01) ==
LOC: ER 10:02
DX: S29.011A Strain of muscle and tendon of front wall of thorax, initial encounter (principal); N39.0 Urinary tract infection, site not specified; R11.10 Vomiting, unspecified; W18.30XA Fall on same level, unspecified, initial encounter; Z88.5 Allergy status to narcotic agent; Z88.8 Allergy status to other drugs, medicaments and biological substances
CPT/HCPCS: 87088; 85025; 81001; 87086; 81025; 71046; J1630; J2405; J7030; J0696

== ENCOUNTER 2023-03-02 09:38 | Emergency (ER) | payer OTHER ==
--- OUTSIDE RECORDS SUMMARY | 2023-03-02 09:58 | XMS REPORT | Continuity of Care Document ---
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 by ity of tablet 00:00: mouth in [place] 00 the Medical morning. Branch meloxicam 2023-0 Yes 15mg Take 1 [facility] 15 mg 5-09 tablet by ity of tablet 00:00: mouth in [place] 00 the Medical morning. Branch meloxicam 2023-0 Yes 15mg Take 1 [facility] 15 mg 5-09 tablet by ity of tablet 00:00: mouth in [place] 00 the Medical morning. Branch meloxicam 2023-0 Yes 15mg Take 1 [facility] 15 mg 5-09 tablet by ity of tablet 00:00: mouth in [place] 00 the Medical morning. Branch meloxicam 2023-0 Yes 15mg Take 1 [facility] 15 mg 5-09 tablet by ity of tablet 00:00: mouth in [place] 00 the Medical morning. Branch meloxicam 2023-0 Yes 15mg Take 1 [facility] 15 mg 5-09 tablet by ity of tablet 00:00: mouth in [place] 00 the Medical morning. Branch meloxicam 2023-0 Yes 15mg Take 1 [facility] 15 mg 5-09 tablet by ity of tablet 00:00: mouth in [place] the Medical morning. Branch meloxicam 2023-0 Yes 15mg Take 1 [facility] 15 mg 5-09 tablet by ity of tablet 00:00: mouth in [place] the Medical morning. Branch verapamil 2023-0 Yes 120mg Take 1 [facility] rs SR 120 mg 5-08 tablet by ity o f ER tablet 00:00: [facility] the [facility] morning. Branch verapamil 2023-0 Yes 120mg Take 1 Unive rs SR 120 mg 5-08 tablet by ity o f ER tablet 00:00: [facility] the Medical morning. Branch verapamil 2023-0 Yes 120mg Take 1 Unive rs SR 120 mg 5-08 tablet by ity o f ER tablet 00:00: mouth in [facility] the Medical morning. Branch verapamil 2023-0 Yes 120mg Take 1 Unive rs SR 120 mg 5-08 tablet by ity o f ER tablet 00:00: mouth in [facility] the Medical morning. Branch verapamil 2023-0 Yes 120mg Take 1 Unive rs SR 120 mg 5-08 tablet by ity o f ER tablet 00:00: mouth in [facility] the Medical morning. Branch verapamil 2023-0 Yes 120mg Take 1 Unive rs SR 120 mg 5-08 tablet by ity o f ER tablet 00:00: mouth in [facility] the Medical morning. Branch verapamil 2023-0 Yes 120mg Take 1 Unive rs SR 120 mg 5-08 tablet by ity o f ER tablet 00:00: mouth in [facility] the Medical morning. Branch verapamil 2023-0 Yes 120mg Take 1 Unive rs SR 120 mg 5-08 tablet by ity o f ER tablet 00:00: [facility] the Medical morning. Branch OLANZapine 2023-0 Yes 10mg Take 1 [facility] rs 10 mg 4-27 tablet by ity of tablet 00:00: mouth in [place] 00 the Medical morning. Branch cloNIDine 2023-0 Yes TAKE 1-2 [facility] ers 0.1 mg 4-27 TABLETS BY ity of tablet 00:00: MOUTH AT [place] 00 BEDTIME Medical NEEDED FOR Branch SLEEP AND ANXIETY OLANZapine 3-0 Yes 10mg Take 1 [facility] rs 10 mg 4-27 tablet by ity of tablet 00:00: mouth in [place] the Medical morning. Branch cloNIDine 3-0 Yes TAKE 1-2 Univ ers 0.1 mg 4-27 TABLETS BY ity of tablet 00:00: MOUTH AT [place] 00 BEDTIME Medical NEEDED FOR Branch SLEEP AND ANXIETY OLANZapine 3-0 Yes 10mg Take 1 [facility] rs 10 mg 4-27 tablet by ity of tablet 00:00: mouth in [place] the Medical morning. Branch cloNIDine 3-0 Yes TAKE 1-2 [facility] ers 0.1 mg 4-27 TABLETS BY ity of tablet 00:00: MOUTH AT [place] 00 BEDTIME Medical NEEDED FOR Branch SLEEP AND ANXIETY OLANZapine 3-0 Yes 10mg Take 1 [facility] rs 10 mg 4-27 tablet by ity of tablet 00:00: mouth in [place] the Medical morning. Branch cloNIDine 3-0 Yes TAKE 1-2 [facility] ers 0.1 mg 4-27 TABLETS BY ity of tablet 00:00: MOUTH AT [place] 00 BEDTIME Medical NEEDED FOR Branch SLEEP AND ANXIETY OLANZapine 3-0 Yes 10mg Take 1 [facility] rs 10 mg 4-27 tablet by ity of tablet 00:00: mouth in [place] the Medical morning. Branch cloNIDine 3-0 Yes TAKE 1-2 [facility] ers 0.1 mg 4-27 TABLETS BY ity of tablet 00:00: MOUTH AT [place] 00 BEDTIME Medical NEEDED FOR Branch SLEEP AND ANXIETY OLANZapine 3-0 Yes 10mg Take 1 [facility] rs 10 mg 4-27 tablet by ity of tablet 00:00: mouth in [place] the Medical morning. Branch cloNIDine 2023-0 Yes TAKE 1-2 [facility] ers 0.1 mg 4-27 TABLETS BY ity of tablet 00:00: MOUTH AT [place] 00 BEDTIME Medical NEEDED FOR Branch SLEEP AND ANXIETY OLANZapine 2023-0 Yes 10mg Take 1 [facility] rs 10 mg 4-27 tablet by ity of tablet 00:00: mouth in [place] 00 the Medical morning. Branch cloNIDine 2023-0 Yes TAKE 1-2 [facility] ers 0.1 mg 4-27 TABLETS BY ity of tablet 00:00: MOUTH AT [place] 00 BEDTIME Medical NEEDED FOR Branch SLEEP AND ANXIETY OLANZapine Yes 10mg Take 1 [facility] rs 10 mg 4-27 tablet by ity of tablet 00:00: mouth in [place] 00 the Medical morning. Branch cloNIDine Yes TAKE 1-2 [facility] ers 0.1 mg 4-27 TABLETS BY ity of tablet 00:00: MOUTH AT [place] 00 BEDTIME Medical NEEDED FOR Branch SLEEP [...] :00 dose, On Medic al mg Sat [place] 09/05/22 at 1230, [place] ondansetron 2022- No 4mg 4 mg, Slow Univers (ZOFRAN 09-05 IV Push, ity of (PF)) 17:15: 17:23 ONCE, 1 [place] injection 4 00 :00 dose, On Medi yessi mg Sat [place] 09/05/22 at 1215, [place] magnesium 2022- No [...] 1 Medical 25 mg dose, On Branch [facility] 09/05/22 at 1100, STAT ketorolac 2022- No 30mg 30 mg, Unive rs (TORADOL) 09-05 Slow IV ity of injection 15:30: 14:38 Push, [place] 30 mg 00 :00 ONCE, 1 Medical dose, On Branch 09/05/22 at 1030, Routine NaCl 0.9% No 1000mL at 999 Uni vers (NS) bolus 09-05 mL/hr, ity of infusion 15:00: 17:12 1,000 mL, [place] 1,000 mL 00 :00 IV Medical Infusion, Branch ONCE, 1 dose, On Sat09/05/22 at 1000, STAT methylpredn 2022- No 125mg 125 mg, U nivers isolone sod 09-05 Intravenou i ty of succ 14:45: 14:35 s, ONCE, 1 [place] (SOLU-MEDRO 00 :00 dose, On Medi yessi L) Wed Branch injection 09/05/22 at 125 mg 0945, 2 mL butalbital- 2022- No 1{tbl} 1 tablet, Univers acetaminoph 09-05 Oral, ity of en-caff 14:00: 14:34 ONCE, 1 [place] (ESGIC) 00 :00 dose, On Medical 50-325-40 Wed Branch mg tablet 1 09/05/22 at tablet 0900, [place] diphenhydrA No 25mg 25 mg, Uni vers MINE 09-05 Slow IV ity of (BENADRYL) 14:00: 14:39 Push, [place] injection 00 :00 ONCE, 1 Medical 25 mg dose, On Branch 09/05/22 at 0900, STAT proMETHazin 2022- No 12.5mg 12.5 mg, Univers e 09-05 IV ity of (PHENERGAN) 14:00: 14:40 [place], [place] 12.5 mg in 00 :00 ONCE, 1 Medica l NaCl 0.9% dose, On Branch (NS) 50 mL Wed IV 09/05/22 at piggyback 0900, [place] carvediloL 2022-0 Yes [id number] 25mg Take 1 U nivers 25 mg 09-05 tablet by ity of tablet 00:00: mouth in [place] 00 the Medical morning Branch and 1 tablet in the evening. Take with meals. losartan 50 2023-0 Yes [id number] 50mg Take 1 [facility] mg tablet 4-26 tablet by ity o f 00:00: mouth in [place] [address] the Medical morning Branch and 1 tablet in the evening. carvediloL 2023-0 Yes [id number] 25mg Take 1 U nivers 25 mg 4-26 tablet by ity of tablet 00:00: mouth in [place] [address] the Medical morning Branch and 1 tablet in the evening. Take with meals. losartan 50 3-0 Yes [id number] 50mg Take 1 [facility] mg tablet 4-26 tablet by ity o f 00:00: mouth in [place] [address] the Medical morning Branch and 1 tablet in the evening. carvediloL 2023-0 Yes [id number] 25mg Take 1 U nivers 25 mg 4-26 tablet by ity of tablet 00:00: mouth in [place] [address] the Medical morning [place] and 1 tablet in the evening. Take with meals. losartan 50 3-0 Yes [id number] 50mg Take 1 [facility] mg tablet 4-26 tablet by ity o f 00:00: mouth in [place] [address] the Medical morning Branch and 1 tablet in the evening. carvediloL 3-0 Yes [id number] 25mg Take 1 U nivers 25 mg 4-26 tablet by ity of tablet 00:00: mouth in [place] [address] the Medical morning [place] and 1 tablet in the evening. Take with meals. losartan 50 3-0 Yes [id number] 50mg Take 1 [facility] mg tablet 4-26 tablet by ity o f 00:00: mouth in [place] [address] the Medical morning Branch and 1 tablet in the evening. carvediloL 2023-0 Yes [id number] 25mg Take 1 U nivers 25 mg 4-26 tablet by ity of tablet 00:00: mouth in [place] [address] the Medical morning [place] and 1 tablet in the evening. Take with meals. losartan 50 3-0 Yes [id number] 50mg Take 1 [facility] mg tablet 4-26 tablet by ity o f 00:00: mouth in [place] [address] the Medical morning Branch and 1 tablet in the evening. carvediloL 2023-0 Yes [id number] 25mg Take 1 U nivers 25 mg 4-26 tablet by ity of tablet 00:00: mouth in [address] morning [place] and 1 tablet in the evening. Take with meals. losartan 50 3-0 Yes [id number] 50mg Take 1 [facility] mg tablet 4-26 tablet by ity o f 00:00: mouth in [place] 00 the Medical morning Branch and 1 tablet in the evening. carvediloL 2023-0 Yes [id number] 25mg Take 1 U nivers 25 mg 4-26 tablet by ity of tablet 00:00: mouth in [place] [address] the Medical morning Branch and 1 tablet in the evening. Take with meals. losartan 50 2023-0 Yes [id number] 50mg Take 1 [facility] mg tablet 4-26 tablet by ity o f 00:00: mouth in [place] [address] the Medical morning Branch and 1 tablet in the evening. carvediloL 2023-0 Yes [id number] 25mg Take 1 U nivers 25 mg 4-26 tablet by ity of tablet 00:00: mouth in [place] [address] the Medical morning Branch and 1 tablet in the evening. Take with meals. losartan 50 3-0 Yes [id number] 50mg Take 1 Univers mg tablet 4-26 tablet by ity o f 00:00: mouth in [place] [address] the Medical morning [place] and 1 tablet in the evening. carvediloL 2023-0 Yes [id number] 25mg Take 1 U nivers 25 mg 4-26 tablet by ity of tablet 00:00: mouth in [place] [address] the Medical morning Branch and 1 tablet in the evening. Take with meals. losartan 50 3-0 Yes [id number] 50mg Take 1 Univers mg tablet 4-26 tablet by ity o f 00:00: mouth in [place] [address] the Medical morning Branch and 1 tablet in the evening. carvediloL 2023-0 Yes [id number] 25mg Take 1 U nivers 25 mg 4-26 tablet by ity of tablet 00:00: mouth in [place] [address] the Medical morning [place] and 1 tablet in the evening. Take with meals. losartan 50 3-0 Yes [id number] 50mg Take 1 [facility] mg tablet 4-26 tablet by ity o f 00:00: mouth in [place] [address] the Medical morning Branch and 1 tablet in the evening. carvediloL 2023-0 Yes [id number] 25mg Take 1 U nivers 25 mg 4-26 tablet by ity of tablet 00:00: mouth in [place] [address] the Medical morning [place] and 1 tablet in the evening. Take with meals. losartan 50 2023-0 Yes [id number] 50mg Take 1 [facility] mg tablet 4-26 tablet by ity o f 00:00: mouth in [place] 00 the Medical morning Branch and 1 tablet in the evening. carvediloL 2023-0 Yes [id number] 25mg Take 1 U nivers 25 mg 4-26 tablet by ity of tablet 00:00: mouth in [place] 00 the Medical morning Branch and 1 tablet in the evening. Take with meals. losartan 50 2023-0 Yes [id number] 50mg Take 1 [facility] mg tablet 4-26 tablet by ity o f 00:00: mouth in [place] 00 the Medical morning Branch and 1 tablet in the evening. carvediloL 2023-0 Yes [id number] 25mg Take 1 U nivers 25 mg 4-26 tablet by ity of tablet 00:00: mouth in [place] 00 the Medical morning Branch and 1 tablet in the evening. Take with meals. losartan 50 2023-0 Yes [id number] 50mg Take 1 [facility] mg tablet 4-26 tablet by ity o f 00:00: mouth in [place] 00 the Medical morning Branch and 1 [...] Medical times Branch daily as needed. ibuprofen 2022-0 Yes 800mg Take 1 Unive rs 800 [...] 00 :00 dose, On Medi yessi 1:1:1 [facility] Branch ([facility] 07/31/22 at [facility]) 1944, [place] oral suspension 15 mL ketorolac 2022-0 2022- No 15mg 15 mg, Unive rs (TORADOL) 08-01 Slow IV ity of injection 00:15: 00:44 Push, [place] 15 mg 00 :00 ONCE, 1 Medical dose, On Branch [facility] 07/31/22 at 1914, Routine ondansetron 2022-0 2022- No 4mg 4 mg, Slow Univers (ZOFRAN 08-01 IV Push, ity of (PF)) 00:15: 00:46 ONCE, 1 [place] injection 4 00 :00 dose, On [facility] yessi mg e Branch 07/31/22 at 1914, [place] famotidine 2022-0 2022- No 20mg 20 mg, Univ ers (PEPCID 08-01 Slow IV ity of (PF)) 00:15: 00:46 Push, [place] injection 00 :00 ONCE, 1 Medical 20 mg dose, On Branch [facility] 07/31/22 at 1914, [place] ondansetron 2022-0 Yes [id number] 4mg Take 1 Univers 4 mg 3-21 tablet by ity of disintegrat 00:00: mouth [place] ing tablet 00 every 8 Medica l (eight) Branch hours as needed for Nausea and Vomiting (N/V). sucralfate 2022-0 Yes [id number] 1g Take 1 U nivers 1 gram 3-21 tablet by ity of tablet 00:00: mouth [place] 00 before Medical meals and Branch at bedtime. ondansetron 2023-0 Yes [id number] 4mg Take 1 Univers 4 mg 3-21 tablet by ity of disintegrat 00:00: mouth [place] ing tablet 00 every 8 Medica l (eight) Branch hours as needed for Nausea and Vomiting (N/V). sucralfate 2023-0 Yes [id number] 1g Take 1 U nivers 1 gram 3-21 tablet by ity of tablet 00:00: mouth [place] 00 before Medical meals and Branch at bedtime. ondansetron 2023-0 Yes [id number] 4mg Take 1 Univers 4 mg 3-21 tablet by ity of disintegrat 00:00: mouth [place] ing tablet 00 every 8 Medica l (eight) Branch hours as needed for Nausea and Vomiting (N/V). sucralfate 2023-0 Yes [id number] 1g Take 1 U nivers 1 gram 3-21 tablet by ity of tablet 00:00: mouth [place] 00 before Medical meals and Branch at bedtime. ondansetron 2023-0 Yes [id number] 4mg Take 1 Univers 4 mg 3-21 tablet by ity of disintegrat 00:00: mouth [place] ing tablet 00 every 8 Medica l (eight) Branch hours as needed for Nausea and Vomiting (N/V). sucralfate 2023-0 Yes [id number] 1g Take 1 U nivers 1 gram 3-21 tablet by ity of tablet 00:00: mouth [place] 00 before Medical meals and Branch at bedtime. ondansetron 2023-0 Yes [id number] 4mg Take 1 Univers 4 mg 3-21 tablet by ity of disintegrat 00:00: mouth [place] ing tablet 00 every 8 Medica l (eight) Branch hours as needed for Nausea and Vomiting (N/V). sucralfate 2023-0 Yes [id number] 1g Take 1 U nivers 1 gram 3-21 tablet by ity of tablet 00:00: mouth [place] 00 before Medical meals and Branch at bedtime. ondansetron 2023-0 Yes [id number] 4mg Take 1 Univers 4 mg 3-21 tablet by ity of disintegrat 00:00: mouth [place] ing tablet 00 every 8 Medica l (eight) Branch hours as needed for Nausea and Vomiting (N/V). sucralfate 2023-0 Yes [id number] 1g Take 1 U nivers 1 gram 3-21 tablet by ity of tablet 00:00: mouth [place] 00 before Medical meals and Branch at bedtime. ondansetron 2023-0 Yes [id number] 4mg Take 1 Univers 4 mg 3-21 tablet by ity of disintegrat 00:00: mouth [place] ing tablet 00 every 8 Medica l (eight) Branch hours as needed for Nausea and Vomiting (N/V). sucralfate 2023-0 Yes [id number] 1g Take 1 U nivers 1 gram 3-21 tablet by ity of tablet 00:00: mouth [place] 00 before Medical meals and Branch at bedtime. ondansetron 2023-0 Yes [id number] 4mg Take 1 [facility] 4 mg 3-21 tablet by ity of disintegrat 00:00: mouth [place] ing tablet 00 every 8 Medica l (eight) Branch hours as needed for Nausea and Vomiting (N/V). sucralfate 2023-0 Yes [id number] 1g Take 1 U nivers 1 gram 3-21 tablet by ity of tablet 00:00: mouth [place] 00 before Medical meals and Branch at bedtime. ondansetron 2023-0 Yes [id number] 4mg Take 1 Univers 4 mg 3-21 tablet by ity of disintegrat 00:00: mouth [place] ing tablet 00 every 8 Medica l (eight) Branch hours as needed for Nausea and Vomiting (N/V). sucralfate 2023-0 Yes [id number] 1g Take 1 U nivers 1 gram 3-21 tablet by ity of tablet 00:00: mouth [place] 00 before Medical meals and Branch at bedtime. ondansetron 2023-0 Yes [id number] 4mg Take 1 Univers 4 mg 3-21 tablet by ity of disintegrat 00:00: mouth [place] ing tablet 00 every 8 Medica l (eight) Branch hours as needed for Nausea and Vomiting (N/V). sucralfate 2023-0 Yes [id number] 1g Take 1 U nivers 1 gram 3-21 tablet by ity of tablet 00:00: mouth [place] 00 before Medical meals and Branch at bedtime. ondansetron 2023-0 Yes [id number] 4mg Take 1 [facility] 4 mg 3-21 tablet by ity of disintegrat 00:00: mouth [place] ing tablet 00 every 8 Medica l (eight) Branch hours as needed for Nausea and Vomiting (N/V). sucralfate 2023-0 Yes [id number] 1g Take 1 U nivers 1 gram 3-21 tablet by ity of tablet 00:00: mouth [place] 00 before Medical meals and Branch at bedtime. ondansetron 2023-0 Yes [id number] 4mg Take 1 [facility] 4 mg 3-21 tablet by ity of disintegrat 00:00: mouth [place] ing tablet 00 every 8 Medica l (eight) Branch hours as needed for Nausea and Vomiting (N/V). sucralfate 2023-0 Yes [id number] 1g Take 1 U nivers 1 gram 3-21 tablet by ity of tablet 00:00: mouth [place] 00 before Medical meals and Branch at bedtime. ondansetron 2023-0 Yes [id number] 4mg Take 1 Univers 4 mg 3-21 tablet by ity of disintegrat 00:00: mouth [place] ing tablet 00 every 8 Medica l (eight) Branch hours as needed for Nausea and Vomiting (N/V). sucralfate 2023-0 Yes [id number] 1g Take 1 U nivers 1 gram 3-21 tablet by ity of tablet 00:00: mouth [place] 00 before Medical meals and Branch at bedtime. ondansetron 2023-0 Yes [id number] 4mg Take 1 [facility] 4 mg 3-21 tablet by ity of disintegrat 00:00: mouth [place] ing tablet 00 every 8 Medica l (eight) Branch hours as needed for Nausea and Vomiting (N/V). sucralfate 2023-0 Yes [id number] 1g Take 1 U nivers 1 gram 3-21 tablet by ity of tablet 00:00: mouth [place] 00 before Medical meals and Branch at bedtime. ondansetron 2023-0 Yes [id number] 4mg Take 1 [facility] 4 mg 3-21 tablet by ity of disintegrat 00:00: mouth [place] ing tablet 00 every 8 Medica l (eight) Branch hours as needed for Nausea and Vomiting (N/V). sucralfate 2023-0 Yes [id number] 1g Take 1 U nivers 1 gram 3-21 tablet by ity of tablet 00:00: mouth [place] 00 before Medical meals and Branch at bedtime. ondansetron 2023-0 Yes [id number] 4mg Take 1 [facility] 4 mg 3-21 tablet by ity of disintegrat 00:00: mouth [place] ing tablet 00 every 8 Medica l (eight) Branch hours as needed for Nausea and Vomiting (N/V). sucralfate 2023-0 Yes [id number] 1g Take 1 U nivers 1 gram 3-21 tablet by ity of tablet 00:00: mouth [place] 00 before Medical meals and Branch at bedtime. ondansetron 2023-0 Yes [id number] 4mg Take 1 [facility] 4 mg 3-21 tablet by ity of disintegrat 00:00: mouth [place] ing tablet 00 every 8 Medica l (eight) Branch hours as needed for Nausea and Vomiting (N/V). sucralfate 2023-0 Yes [id number] 1g Take 1 U nivers 1 gram 3-21 tablet by ity of tablet 00:00: mouth [place] 00 before Medical meals and Branch at bedtime. ondansetron 2023-0 Yes [id number] 4mg Take 1 [facility] 4 mg 3-21 tablet by ity of disintegrat 00:00: mouth [place] ing tablet 00 every 8 Medica l (eight) Branch hours as needed for Nausea and Vomiting (N/V). sucralfate 2023-0 Yes [id number] 1g Take 1 U nivers 1 gram 3-21 tablet by ity of tablet 00:00: mouth [place] 00 before Medical meals and Branch at bedtime. pantoprazol 2023-0 2023- No [id number] 40mg Take 1 Univers e 40 mg EC 3-21 04-05 tablet by ity of tablet 00:00: 04:59 mouth in [place] 00 :00 the Medical morning Branch for 14 days. pantoprazol 2023-0 2023- No [id number] 40mg Take 1 Univers e 40 mg EC 3-21 04-05 tablet by ity of tablet 00:00: 04:59 mouth in [place] 00 :00 the Medical morning Branch for [...] tablet by ity o f 00:00: mouth. [place] Medical Branch traMADoL 50 3-0 Yes 50mg Take 1 Univ ers mg tablet 3-13 tablet by ity o f 00:00: mouth. [place] Medical Branch traMADoL 50 3-0 Yes 50mg Take 1 Univ ers mg tablet 3-13 tablet by ity o f 00:00: mouth. [place] Medical Branch traMADoL 50 3-0 Yes 50mg Take 1 Univ ers mg tablet 3-13 tablet by ity o f 00:00: mouth. [place] Medical Branch traMADoL 50 3-0 Yes 50mg Take 1 Univ ers mg tablet 3-13 tablet by ity o f 00:00: mouth. [place] Medical Branch traMADoL 50 3-0 Yes 50mg Take 1 Univ ers mg tablet 3-13 tablet by ity o f 00:00: mouth. [place] Medical Branch traMADoL 50 3-0 Yes 50mg Take 1 Univ ers mg tablet 3-13 tablet by ity o f 00:00: mouth. [place] Medical Branch traMADoL 50 2023-0 Yes 50mg Take 1 Univ ers mg tablet 3-13 tablet by ity o f 00:00: mouth. [place] Medical Branch traMADoL 50 2023-0 Yes 50mg Take 1 Univ ers mg tablet 3-13 tablet by ity o f 00:00: mouth. [place] Medical Branch traMADoL 50 2023-0 Yes 50mg [...] ity o f 00:00: mouth. Medical Branch ibuprofen 3-0 Yes [id number] 600mg Take 1 [facility] 600 mg 3-05 [id number] tablet by ity of tablet 00:00: mouth [place] 00 every 6 Medical (six) Branch hours as needed for Pain (scale 4-6). ibuprofen 2022-0 Yes [id number] 600mg Take 1 [facility] 600 mg 3-05 [id number] tablet by ity of tablet 00:00: mouth [place] 00 every 6 Medical (six) Branch hours as needed for Pain (scale 4-6). ibuprofen 3-0 Yes [id number] 600mg Take 1 [facility] 600 mg 3-05 [id number] tablet by ity of tablet 00:00: mouth [place] 00 every 6 Medical (six) Branch hours as needed for Pain (scale 4-6). ibuprofen 3-0 2023- No [id number] 600mg Take 1 [facility] 600 mg 3-05 03-21 [id number] tablet by ity o f tablet 00:00: 00:00 mouth [place] 00 :00 every 6 Medical (six) Branch hours as needed for Pain (scale 4-6). citalopram 2022-0 Yes 10mg Take 1 Unive rs 10 mg 2-17 tablet by ity of tablet 00:00: mouth in [place] 00 the Medical morning. Branch QUEtiapine 2023-0 Yes Univers 400 mg 2-17 ity of tablet 00:00: [place] 00 Medical Branch gabapentin 2023-0 Yes [facility] 600 mg 2-17 ity of tablet 00:00: [place] 00 Medical Branch citalopram 2023-0 Yes 10mg Take 1 Unive rs 10 mg 2-17 tablet by ity of tablet 00:00: mouth in [place] the Medical morning. Branch QUEtiapine 2023-0 Yes [facility] 400 mg 2-17 ity of tablet 00:00: [place] 00 Medical Branch gabapentin 2023-0 Yes [facility] 600 mg 2-17 ity of tablet 00:00: [place] 00 Medical Branch citalopram 2023-0 Yes 10mg Take 1 Unive rs 10 mg 2-17 tablet by ity of tablet 00:00: mouth in [place] the Medical morning. Branch QUEtiapine 2023-0 Yes [facility] 400 mg 2-17 ity of tablet 00:00: [place] 00 Medical Branch gabapentin 2023-0 Yes [facility] 600 mg 2-17 ity of tablet 00:00: [place] 00 Medical Branch citalopram 2023-0 Yes 10mg Take 1 Unive rs 10 mg 2-17 tablet by ity of tablet 00:00: mouth in [place] the Medical morning. Branch QUEtiapine 2023-0 Yes [facility] 400 mg 2-17 ity of tablet 00:00: [place] 00 Medical Branch gabapentin 2023-0 Yes [facility] 600 mg 2-17 ity of tablet 00:00: [place] [address] Medical Branch citalopram 2023-0 Yes 10mg Take 1 Unive rs 10 mg 2-17 tablet by ity of tablet 00:00: mouth in [place] the Medical morning. Branch QUEtiapine 2023-0 Yes [facility] 400 mg 2-17 ity of tablet 00:00: [place] 00 Medical Branch gabapentin 2023-0 Yes [facility] 600 mg 2-17 ity of tablet 00:00: [place] 00 Medical Branch citalopram 2023-0 Yes 10mg Take 1 Unive rs 10 mg 2-17 tablet by ity of tablet 00:00: mouth in [place] the Medical morning. Branch QUEtiapine 2023-0 Yes [facility] 400 mg 2-17 ity of tablet 00:00: [place] 00 Medical Branch gabapentin 2023-0 Yes [facility] 600 mg 2-17 ity of tablet 00:00: [place] 00 Medical Branch citalopram 2023-0 Yes 10mg Take 1 Unive rs 10 mg 2-17 tablet by ity of tablet 00:00: mouth in [place] the Medical morning. Branch QUEtiapine 2023-0 Yes [facility] 400 mg 2-17 ity of tablet 00:00: [place] 00 Medical Branch gabapentin 2023-0 Yes [facility] 600 mg 2-17 ity of tablet 00:00: [place] 00 Medical Branch citalopram 2023-0 Yes 10mg Take 1 Unive rs 10 mg 2-17 tablet by ity of tablet 00:00: mouth in [place] the Medical morning. Branch QUEtiapine 2023-0 Yes [facility] 400 mg 2-17 ity of tablet 00:00: [place] 00 Medical Branch gabapentin 2023-0 Yes [facility] 600 mg 2-17 ity of tablet 00:00: [place] 00 Medical Branch citalopram 2023-0 Yes 10mg Take 1 [facility] rs 10 mg 2-17 tablet by ity of tablet 00:00: mouth in [place] the Medical morning. Branch QUEtiapine 2023-0 Yes [facility] 400 mg 2-17 ity of tablet 00:00: [place] 00 [facility] gabapentin 2023-0 Yes [facility] 600 mg 2-17 ity of tablet 00:00: [place] 00 [facility] citalopram 2023-0 Yes 10mg Take 1 [facility] rs 10 mg 2-17 tablet by ity of tablet 00:00: mouth in [place] the Medical morning. Branch QUEtiapine 2023-0 Yes [facility] 400 mg 2-17 ity of tablet 00:00: [place] 00 [facility] gabapentin 2023-0 Yes [facility] 600 mg 2-17 ity of tablet 00:00: [place] 00 [facility] citalopram 2023-0 Yes 10mg Take 1 [facility] rs 10 mg 2-17 tablet by ity of tablet 00:00: mouth in [place] the Medical morning. Branch QUEtiapine 2023-0 Yes [facility] 400 mg 2-17 ity of tablet 00:00: [place] 00 [facility] gabapentin 2023-0 Yes [facility] 600 mg 2-17 ity of tablet 00:00: [place] [address] [facility] Branch citalopram 2023-0 Yes 10mg Take 1 [facility] rs 10 mg 2-17 tablet by ity of tablet 00:00: mouth in [place] the Medical morning. Branch QUEtiapine 2023-0 Yes [facility] 400 mg 2-17 ity of tablet 00:00: [place] 00 [facility] gabapentin 2023-0 Yes [facility] 600 mg 2-17 ity of tablet 00:00: [place] 00 [facility] citalopram 2023-0 Yes 10mg Take 1 [facility] rs 10 mg 2-17 tablet by ity of tablet 00:00: mouth in [place] the Medical morning. Branch QUEtiapine 2023-0 Yes [facility] 400 mg 2-17 ity of tablet 00:00: [place] 00 [facility] gabapentin 2023-0 Yes [facility] 600 mg 2-17 ity of tablet 00:00: [place] 00 [facility] citalopram 2023-0 Yes 10mg Take 1 [facility] rs 10 mg 2-17 tablet by ity of tablet 00:00: mouth in [place] the Medical morning. Branch QUEtiapine 3-0 Yes [facility] 400 mg 2-17 ity of tablet 00:00: [place] 00 [facility] gabapentin 2023-0 Yes [facility] 600 mg 2-17 ity of tablet 00:00: [place] [address] Medical Branch citalopram 2023-0 Yes 10mg Take 1 [facility] rs 10 mg 2-17 tablet by ity of tablet 00:00: mouth in [place] the Medical morning. Branch QUEtiapine 3-0 Yes [facility] 400 mg 2-17 ity of tablet 00:00: [place] 00 [facility] gabapentin 2023-0 Yes [facility] 600 mg 2-17 ity of tablet 00:00: [place] 00 [facility] citalopram 2023-0 Yes 10mg Take 1 [facility] rs 10 mg 2-17 tablet by ity of tablet 00:00: mouth in [place] the Medical morning. Branch QUEtiapine 2023-0 Yes [facility] 400 mg 2-17 ity of tablet 00:00: [place] 00 [facility] gabapentin 2023-0 Yes [facility] 600 mg 2-17 ity of tablet 00:00: [place] 00 [facility] methylPREDN 2023-0 Yes [id number] Take by [facility] ISolone 2-11 mouth ity of (MEDROL, 00:00: SEE-INSTRU [place]ELA,) 4 mg 00 CTIONS. Medica l tablets follow Branch package directions methylPREDN 2023-0 Yes [id number] Take by [facility] ISolone 2-11 mouth ity of (MEDROL, 00:00: SEE-INSTRU [place],) 4 mg 00 CTIONS. Medica l tablets follow Branch package directions methylPREDN 2023-0 Yes [id number] Take by [facility] ISolone 2-11 mouth ity of (MEDROL, 00:00: SEE-INSTRU [place],) 4 mg 00 CTIONS. Medica l tablets follow Branch package directions methylPREDN 2023-0 Yes [id number] Take by [facility] ISolone 2-11 mouth ity of (MEDROL, 00:00: SEE-INSTRU [place],) 4 mg 00 CTIONS. Medica l tablets follow Branch package directions methylPREDN 2023-0 Yes [id number] Take by [facility] ISolone 2-11 mouth ity of (MEDROL, 00:00: SEE-INSTRU [place],) 4 mg 00 CTIONS. Medica l tablets follow Branch package directions methylPREDN 2023-0 Yes [id number] Take by [facility] ISolone 2-11 mouth ity of (MEDROL, 00:00: SEE-INSTRU [place],) 4 mg 00 CTIONS. Medica l tablets follow Branch package directions methylPREDN 2023-0 Yes [id number] Take by [facility] ISolone 2-11 mouth ity of (MEDROL, 00:00: SEE-INSTRU [place],) 4 mg 00 CTIONS. Medica l tablets follow Branch package directions methylPREDN 2023-0 Yes [id number] Take by [facility] ISolone 2-11 mouth ity of (MEDROL, 00:00: SEE-INSTRU [place],) 4 mg 00 CTIONS. Medica l tablets follow Branch package directions methylPREDN 2023-0 Yes [id number] Take by [facility] ISolone 2-11 mouth ity of (MEDROL, 00:00: SEE-INSTRU [place],) 4 mg 00 CTIONS. Medica l tablets follow Branch package directions methylPREDN 2023-0 Yes [id number] Take by [facility] ISolone 2-11 mouth ity of (MEDROL, 00:00: SEE-INSTRU [place],) 4 mg 00 CTIONS. Medica l tablets follow Branch package directions methylPREDN 2023-0 Yes [id number] Take by [facility] ISolone 2-11 mouth ity of (MEDROL, 00:00: SEE-INSTRU [place],) 4 mg 00 CTIONS. Medica l tablets follow Branch package directions methylPREDN 2023-0 Yes [id number] Take by [facility] ISolone 06-23 mouth ity of (MEDROL, 00:00: SEE-INSTRU [place],) 4 mg 00 CTIONS. Medica l tablets follow Branch package directions methylPREDN 2022-0 Yes [id number] Take by [facility] ISolone 11 mouth ity of (MEDROL, 00:00: SEE-INSTRU [place],) 4 mg 00 CTIONS. Medica l tablets follow Branch package directions methylPREDN 2022-0 Yes [id number] Take by [facility] ISolone 11 mouth ity of (MEDROL, 00:00: SEE-INSTRU [place],) 4 mg 00 CTIONS. Medica l tablets follow Branch package directions bromphenira 2022- No [id number] 5mL Take 5 mL [facility] mine-pseudo 06-23 by mouth 4 i ty of ephedrine-D 00:00: 05:59 (four) [place] M (BROMFED 00 :00 times Medical DM) 2-10 daily as Bran ch mg/5 mL needed for syrup Cold symptoms for up to 10 days. methocarbam 2022- No [id number] 750mg Take 1 [facility] oL 750 mg 06-23 [id number] tablet by it y of tablet 00:00: [...] [place] butalbital- 2021-05- No 1{tbl} 1 tablet, [facility] acetaminoph 07-06 Oral, ity of en-caff 20:15: [...] 1000mL at 999 Uni vers (NS) bolus 07-06 mL/hr, ity of infusion 20:00: 21:45 1,000 mL, [place] 1,000 mL 00 :00 IV Medical Infusion, Branch ONCE, 1 dose, On 05/05/22 at 1400, [place] diphenhydrA 2021-05- No 25mg 25 mg, Uni vers MINE 07-06 Slow IV ity of (BENADRYL) 19:15: 19:42 [...] 05/05/22 at 1315, Routine butalbital- 2021-05 Yes [id number] 1{tbl} Take 1 [facility] acetaminoph 2-24 tablet by ity of en-caff 00:00: mouth [place] 50-325-40 00 every 4 Medical mg tablet (four) Branch hours as needed for Pain (scale 7-10). butalbital- 2021-05 Yes [id number] 1{tbl} Take 1 [facility] acetaminoph 2-24 tablet by ity of en-caff 00:00: mouth [place] 50-325-40 00 every 4 Medical mg tablet (four) Branch hours as needed for Pain (scale 7-10). butalbital- 2021-05 Yes [id number] 1{tbl} Take 1 [facility] acetaminoph 2-24 tablet by ity of en-caff 00:00: mouth [place] 50-325-40 00 every 4 Medical mg tablet (four) Branch hours as needed for Pain (scale 7-10). butalbital- 2021-05 Yes [id number] 1{tbl} Take 1 [facility] acetaminoph 2-24 tablet by ity of en-caff 00:00: mouth [place] 50-325-40 00 every 4 Medical mg tablet (four) Branch hours as needed for Pain (scale 7-10). butalbital2021-05 Yes [id number] 1{tbl} Take 1 [facility] acetaminoph 2-24 tablet by ity of en-caff 00:00: mouth [place] 50-325-40 00 every 4 Medical mg tablet (four) Branch hours as needed for Pain (scale 7-10). butalbital2021-05 Yes [id number] 1{tbl} Take 1 [facility] acetaminoph 2-24 tablet by ity of en-caff 00:00: mouth [place] 50-325-40 00 every 4 Medical mg tablet (four) Branch hours as needed for Pain (scale 7-10). butalbital2021-05 Yes [id number] 1{tbl} Take 1 [facility] acetaminoph 2-24 tablet by ity of en-caff 00:00: mouth [place] 50-325-40 00 every 4 Medical mg tablet (four) Branch hours as needed for Pain (scale 7-10). butalbital2021-05 Yes [id number] 1{tbl} Take 1 [facility] acetaminoph 2-24 tablet by ity of en-caff 00:00: mouth [place] 50-325-40 00 every 4 Medical mg tablet (four) Branch hours as needed for Pain (scale 7-10). butalbital- 2021-05 Yes [id number] 1{tbl} Take 1 [facility] acetaminoph 2-24 tablet by ity of en-caff 00:00: mouth [place] 50-325-40 00 every 4 Medical mg tablet (four) Branch hours as needed for Pain (scale 7-10). butalbital- 2021-05 Yes [id number] 1{tbl} Take 1 [facility] acetaminoph 2-24 tablet by ity of en-caff 00:00: mouth [place] 50-325-40 00 every 4 Medical mg tablet (four) Branch hours as needed for Pain (scale 7-10). butalbital- 2021-05 Yes [id number] 1{tbl} Take 1 [facility] acetaminoph 2-24 tablet by ity of en-caff 00:00: mouth [place] 50-325-40 00 every 4 Medical mg tablet (four) Branch hours as needed for Pain (scale 7-10). butalbital- 2021-05 Yes [id number] 1{tbl} Take 1 [facility] acetaminoph 2-24 tablet by ity of en-caff 00:00: mouth [place] 50-325-40 00 every 4 Medical mg tablet (four) Branch hours as needed for Pain (scale 7-10). butalbital- 2021-05 Yes [id number] 1{tbl} Take 1 [facility] acetaminoph 2-24 tablet by ity of en-caff 00:00: mouth [place] 50-325-40 00 every 4 Medical mg tablet (four) Branch hours as needed for Pain (scale 7-10). butalbital- 2021-05 Yes [id number] 1{tbl} Take 1 [facility] acetaminoph 2-24 tablet by ity of en-caff 00:00: mouth [place] 50-325-40 00 every 4 Medical mg tablet (four) Branch hours as needed for Pain (scale 7-10). butalbital2021-05 Yes [id number] 1{tbl} Take 1 [facility] acetaminoph 2-24 tablet by ity of en-caff 00:00: mouth [place] 50-325-40 00 every 4 Medical mg tablet (four) Branch hours as needed for Pain (scale 7-10). butalbital2021-05 Yes [id number] 1{tbl} Take 1 [facility] acetaminoph 2-24 tablet [...] 25mg 25 mg, Uni vers MINE 2 1215 Oral, ity of (BENADRYL) 15:45: 15:53 ONCE, 1 [place] tablet 25 00 :00 dose, On Medica l mg [place] Branch 04/26/22 at 0945, [place] NaCl 0.9% 2021-05 No 1000mL at 999 Uni vers (NS) bolus 06-27 12-15 mL/hr, ity of infusion 15:45: 15:55 [...] 04/26/22 at 0845, Routine cephALEXin 2021-05- No [id number] 500mg Take 1 [facility] (KEFLEX) 06-27 capsule [...] for Nausea and Vomiting (N/V). ondansetron 2021-05 No 4mg Take 1 Uni vers (ZOFRAN) 4 1-30 03-21 tablet by ity of mg tablet 00:00: 00:00 mouth [place] 00 :00 every 8 Medical (eight) Branch hours as needed for Nausea and Vomiting (N/V). galcanezuma 2021-05 Yes [id number] 120mg inject 120 [facility] b-gnlm 1-28 mg under ity of prefilled 00:00: [place] (EMGALITY) 00 once every Med ical subcutaneou month. Branch s injection galcanezuma 2021-05 Yes [id number] 120mg inject 120 [facility] b-gnlm 1-28 mg under ity of prefilled 00:00: [place] (EMGALITY) 00 once every Med ical subcutaneou month. Branch s injection galcanezuma 2021-05 Yes [id number] 120mg inject 120 [facility] b-gnlm 1-28 mg under ity of prefilled 00:00: [place] (EMGALITY) 00 once every Med ical subcutaneou month. Branch s injection galcanezuma 2021-05 Yes [id number] 120mg inject 120 [facility] b-gnlm 1-28 mg under ity of prefilled 00:00: [place] (EMGALITY) 00 once every Med ical subcutaneou month. Branch s injection galcanezuma 2021-05 Yes [id number] 120mg inject 120 [facility] b-gnlm 1-28 mg under ity of prefilled 00:00: [place] (EMGALITY) 00 once every Med ical subcutaneou month. Branch s injection galcanezuma 2021-05 Yes [id number] 120mg inject 120 [facility] b-gnlm 1-28 mg under ity of prefilled 00:00: [place] (EMGALITY) 00 once every Med ical subcutaneou month. Branch s injection galcanezuma 2021-05 Yes [id number] 120mg inject 120 [facility] b-gnlm 1-28 mg under ity of prefilled 00:00: [place] (EMGALITY) 00 once every Med ical subcutaneou month. Branch s injection galcanezuma 2021-05 Yes [id number] 120mg inject 120 [facility] b-gnlm 1-28 mg under ity of prefilled 00:00: [place] (EMGALITY) 00 once every Med ical subcutaneou month. Branch s injection galcanezuma 2021-05 Yes [id number] 120mg inject 120 [facility] b-gnlm 1-28 mg under ity of prefilled 00:00: [place] (EMGALITY) 00 once every Med ical subcutaneou month. Branch s injection galcanezuma 2021-05 Yes [id number] 120mg inject 120 [facility] b-gnlm 1-28 mg under ity of prefilled 00:00: [place] (EMGALITY) 00 once every Med ical subcutaneou month. Branch s injection galcanezuma 2021-05 Yes [id number] 120mg inject 120 [facility] b-gnlm 1-28 mg under ity of prefilled 00:00: [place] (EMGALITY) 00 once every Med ical subcutaneou month. Branch s injection galcanezuma 2021-05 Yes [id number] 120mg inject 120 [facility] b-gnlm 1-28 mg under ity of prefilled 00:00: [place] (EMGALITY) 00 once every Med ical subcutaneou month. Branch s injection galcanezuma 2021-05 Yes [id number] 120mg inject 120 [facility] b-gnlm 1-28 mg under ity of prefilled 00:00: [place] (EMGALITY) 00 once every Med ical subcutaneou month. Branch s injection galcanezuma 2021-05 Yes [id number] 120mg inject 120 [facility] b-gnlm 1-28 mg under ity of prefilled 00:00: [place] (EMGALITY) 00 once every Med ical subcutaneou month. Branch s injection galcanezuma 2021-05 Yes [id number] 120mg inject 120 [facility] b-gnlm 1-28 mg under ity of prefilled 00:00: [place] (EMGALITY) 00 once every Med ical subcutaneou month. Branch s injection galcanezuma 2021-05 Yes [id number] 120mg inject 120 [facility] b-gnlm 1-28 mg under ity of prefilled 00:00: [place] (EMGALITY[place] 00 once every Med ical subcutaneou month. Branch s injection galcanezuma 2021-05 Yes [id number] 120mg inject 120 [facility] b-gnlm 1-28 mg under ity of prefilled 00:00: [place] (EMGALITY) 00 once every Med ical subcutaneou month. Branch s injection galcanezuma 2021-05 Yes [id number] 120mg inject 120 [facility] b-gnlm 1-28 mg under ity of prefilled 00:00: [place] (EMGALITY) 00 once every Med ical subcutaneou month. Branch s injection galcanezuma 2021-05 Yes [id number] 120mg inject 120 [facility] b-gnlm 1-28 mg under ity of prefilled 00:00: [place] (EMGALITY) 00 once every Med ical subcutaneou month. Branch s injection galcanezuma 2021-05 Yes [id number] 120mg inject 120 [facility] b-gnlm 1-28 mg under ity of prefilled 00:00: [place] (EMGALITY) 00 once every Med ical subcutaneou month. Branch s injection galcanezuma 2021-05 Yes [id number] 120mg inject 120 [facility] b-gnlm 1-28 mg under ity of prefilled 00:00: [place] (EMGALITY) 00 once every Med ical subcutaneou month. Branch s injection galcanezuma 2021-05 Yes [id number] 120mg inject 120 [facility] b-gnlm 1-28 mg under ity of prefilled 00:00: [place] (EMGALITY) 00 once every Med ical subcutaneou month. Branch s injection galcanezuma 2021-05 Yes [id number] 120mg inject 120 [facility] b-gnlm 1-28 mg under ity of prefilled 00:00: [place] (EMGALITY) 00 once every Med ical subcutaneou month. Branch s injection galcanezuma 2021-05 Yes [id number] 120mg inject 120 [facility] b-gnlm 1-28 mg under ity of prefilled 00:00: [place] (EMGALITY) 00 once every Med ical subcutaneou month. Branch s injection galcanezuma 2021-05 Yes [id number] 120mg inject 120 [facility] b-gnlm 1-28 mg under ity of prefilled 00:00: [place] (EMGALITY) 00 once every Med ical subcutaneou month. Branch s injection galcanezuma 2021-05 Yes [id number] 120mg inject 120 [facility] b-gnlm 1-28 mg under ity of prefilled 00:00: [place] (EMGALITY) 00 once every Med ical subcutaneou month. Branch s injection galcanezuma 2021-05 Yes [id number] 120mg inject 120 [facility] b-gnlm 1-28 mg under ity of prefilled 00:00: [place] (EMGALITY) 00 once every Med ical subcutaneou month. Branch s injection galcanezuma 2021-05 Yes [id number] 120mg inject 120 [facility] b-gnlm 1-28 mg under ity of prefilled 00:00: [place] (EMGALITY) 00 once every Med ical subcutaneou month. Branch s injection galcanezuma 2021-05 Yes [id number] 120mg inject 120 [facility] b-gnlm 1-28 mg under ity of prefilled 00:00: [place] (EMGALITY) 00 once every Med ical subcutaneou month. Branch s injection galcanezuma 2021-05 Yes [id number] 120mg inject 120 [facility] b-gnlm 1-28 mg under ity of prefilled 00:00: [place] (EMGALITY) 00 once every Med ical subcutaneou month. Branch s injection galcanezuma 2021-05 Yes [id number] 120mg inject 120 [facility] b-gnlm 1-28 mg under ity of prefilled 00:00: [place] (EMGALITY) 00 once every Med ical subcutaneou month. Branch s injection galcanezuma 2021-05 Yes [id number] 120mg inject 120 [facility] b-gnlm 1-28 mg under ity of prefilled 00:00: [place] (EMGALITY) 00 once every Med ical subcutaneou month. Branch s injection galcanezuma 2021-05 Yes [id number] 120mg inject 120 [facility] b-gnlm 1-28 mg under ity of prefilled 00:00: [place] (EMGALITY) 00 once every Med ical subcutaneou month. Branch s injection galcanezuma 2021-05 Yes [id number] 120mg inject 120 [facility] b-gnlm 1-28 mg [...] dose, On Medica l tablet 1 Sat [place] tablet 04/07/22 at 1830, Routine diphenhydrA 2021-05- [...] On Branch 03/24/22 at 0930, STAT ondansetron 2021-05- No 4mg 4 mg, [...] 13 :00 Medical Branch rizatriptan 2021-05 Yes [id number] 10mg Take 1 Univers 10 mg 1-12 tablet by ity of tablet 00:00: mouth as [place] 00 needed for Medical Migraine. Branch May repeat in 2 hours if needed Butalbital- 2021-05 Yes [id number] 1{capsu Take 1 [facility] Acetaminoph 1-12 le} [...] daily. Indication s: headache rizatriptan 2021-05 Yes [id number] 10mg Take 1 [facility] 10 mg 1-12 tablet by ity of tablet 00:00: mouth as [place] 00 needed for Medical Migraine. Branch May repeat in 2 hours if needed Butalbital- 2021-05 Yes [id number] 1{capsu Take 1 [facility] Acetaminoph 1-12 le} [...] daily. Indication s: headache rizatriptan 2021-05 Yes [id number] 10mg Take 1 [facility] 10 mg 1-12 tablet by ity of tablet 00:00: mouth as [place] 00 needed for Medical Migraine. Branch May repeat in 2 hours if needed Butalbital- 2021-05 Yes [id number] 1{capsu Take 1 [facility] Acetaminoph 1-12 le} [...] daily. Indication s: headache rizatriptan 2021-05 Yes [id number] 10mg Take 1 [facility] 10 mg 1-12 tablet by ity of tablet 00:00: mouth as [place] 00 needed for Medical Migraine. Branch May repeat in 2 hours if needed Butalbital- 2021-05 Yes [id number] 1{capsu Take 1 [facility] Acetaminoph 1-12 le} capsule by it y of en-Caff 00:00: mouth [place] (FIORICET) 00 every 6 Medica l 50-300-40 (six) Branch mg per hours as capsule needed for Other (headache) . rizatriptan 2021-05 Yes [id number] 10mg Take 1 [facility] 10 mg 1-12 tablet by ity of tablet 00:00: mouth as [place] 00 needed for Medical Migraine. Branch May repeat in 2 hours if needed Butalbital- 2021-05 Yes [id number] 1{capsu Take 1 [facility] Acetaminoph 1-12 le} capsule by it y of en-Caff 00:00: mouth [place] (FIORICET) 00 every 6 Medica l 50-300-40 (six) Branch mg per hours as capsule needed for Other (headache) . rizatriptan 2021-05 Yes [id number] 10mg Take 1 [facility] 10 mg 1-12 tablet by ity of tablet 00:00: mouth as [place] 00 needed for Medical Migraine. Branch May repeat in 2 hours if needed Butalbital- 2021-05 Yes [id number] 1{capsu Take 1 [facility] Acetaminoph 1-12 le} capsule by it y of en-Caff 00:00: mouth [place] (FIORICET) 00 every 6 Medica l 50-300-40 (six) Branch mg per hours as capsule needed for Other (headache) . rizatriptan 2021-05 Yes [id number] 10mg Take 1 [facility] 10 mg 1-12 tablet by ity of tablet 00:00: mouth as [place] 00 needed for Medical Migraine. Branch May repeat in 2 hours if needed Butalbital- 2021-05 Yes [id number] 1{capsu Take 1 [facility] Acetaminoph 1-12 le} capsule by it y of en-Caff 00:00: mouth [place] (FIORICET) 00 every 6 Medica l 50-300-40 (six) Branch mg per hours as capsule needed for Other (headache) . rizatriptan 2021-05 Yes [id number] 10mg Take 1 [facility] 10 mg 1-12 tablet by ity of tablet 00:00: mouth as [place] 00 needed for Medical Migraine. Branch May repeat in 2 hours if needed Butalbital- 2021-05 Yes [id number] 1{capsu Take 1 [facility] Acetaminoph 1-12 le} capsule by it y of en-Caff 00:00: mouth [place] (FIORICET) 00 every 6 Medica l 50-300-40 (six) Branch mg per hours as capsule needed for Other (headache) . rizatriptan 2021-05 Yes [id number] 10mg Take 1 [facility] 10 mg 1-12 tablet by ity of tablet 00:00: mouth as [place] 00 needed for Medical Migraine. Branch May repeat in 2 hours if needed Butalbital- 2021-05 Yes [id number] 1{capsu Take 1 [facility] Acetaminoph 1-12 le} capsule by it y of en-Caff 00:00: mouth [place] (FIORICET) 00 every 6 Medica l 50-300-40 (six) Branch mg per hours as capsule needed for Other (headache) . rizatriptan 2021-05 Yes [id number] 10mg Take 1 [facility] 10 mg 1-12 tablet by ity of tablet 00:00: mouth as [place] 00 needed for Medical Migraine. Branch May repeat in 2 hours if needed Butalbital- 2021-05 Yes [id number] 1{capsu Take 1 [facility] Acetaminoph 1-12 le} capsule by it y of en-Caff 00:00: mouth [place] (FIORICET) 00 every 6 Medica l 50-300-40 (six) Branch mg per hours as capsule needed for Other (headache) . rizatriptan 2021-05 Yes [id number] 10mg Take 1 [facility] 10 mg 1-12 tablet by ity of tablet 00:00: mouth as [place] 00 needed for Medical Migraine. Branch May repeat in 2 hours if needed Butalbital- 2021-05 Yes [id number] 1{capsu Take 1 [facility] Acetaminoph 1-12 le} capsule by it y of en-Caff 00:00: mouth [place] (FIORICET) 00 every 6 Medica l 50-300-40 (six) Branch mg per hours as capsule needed for Other (headache) . rizatriptan 2021-05 Yes [id number] 10mg Take 1 [facility] 10 mg 1-12 tablet by ity of tablet 00:00: mouth as [place] 00 needed for Medical Migraine. Branch May repeat in 2 hours if needed Butalbital- 2021-05 Yes [id number] 1{capsu Take 1 [facility] Acetaminoph 1-12 le} capsule by it y of en-Caff 00:00: mouth [place] (FIORICET) 00 every 6 Medica l 50-300-40 (six) Branch mg per hours as capsule needed for Other (headache) . rizatriptan 2021-05 Yes [id number] 10mg Take 1 [facility] 10 mg 1-12 tablet by ity of tablet 00:00: mouth as [place] 00 needed for Medical Migraine. Branch May repeat in 2 hours if needed Butalbital- 2021-05 Yes [id number] 1{capsu Take 1 [facility] Acetaminoph 1-12 le} capsule by it y of en-Caff 00:00: mouth [place] (FIORICET) 00 every 6 Medica l 50-300-40 (six) Branch mg per hours as capsule needed for Other (headache) . rizatriptan 2021-05 Yes [id number] 10mg Take 1 [facility] 10 mg 1-12 tablet by ity of tablet 00:00: mouth as [place] 00 needed for Medical Migraine. Branch May repeat in 2 hours if needed Butalbital- 2021-05 Yes [id number] 1{capsu Take 1 [facility] Acetaminoph 1-12 le} capsule by it y of en-Caff 00:00: mouth [place] (FIORICET) 00 every 6 Medica l 50-300-40 (six) Branch mg per hours as capsule needed for Other (headache) . rizatriptan 2021-05 Yes [id number] 10mg Take 1 [facility] 10 mg 1-12 tablet by ity of tablet 00:00: mouth as [place] 00 needed for Medical Migraine. Branch May repeat in 2 hours if needed Butalbital- 2021-05 Yes [id number] 1{capsu Take 1 [facility] Acetaminoph 1-12 le} capsule by it y of en-Caff 00:00: mouth [place] (FIORICET) 00 every 6 Medica l 50-300-40 (six) Branch mg per hours as capsule needed for Other (headache) . rizatriptan 2021-05 Yes [id number] 10mg Take 1 [facility] 10 mg 1-12 tablet by ity of tablet 00:00: mouth as [place] 00 needed for Medical Migraine. Branch May repeat in 2 hours if needed Butalbital- 2021-05 Yes [id number] 1{capsu Take 1 [facility] Acetaminoph 1-12 le} capsule by it y of en-Caff 00:00: mouth [place] (FIORICET) 00 every 6 Medica l 50-300-40 (six) Branch mg per hours as capsule needed for Other (headache) . rizatriptan 2021-05 Yes [id number] 10mg Take 1 [facility] 10 mg 1-12 tablet by ity of tablet 00:00: mouth as [place] 00 needed for Medical Migraine. Branch May repeat in 2 hours if needed Butalbital- 2021-05 Yes [id number] 1{capsu Take 1 [facility] Acetaminoph 1-12 le} capsule by it y of en-Caff 00:00: mouth [place] (FIORICET) 00 every 6 Medica l 50-300-40 (six) Branch mg per hours as capsule needed for Other (headache) . rizatriptan 2021-05 Yes [id number] 10mg Take 1 [facility] 10 mg 1-12 tablet by ity of tablet 00:00: mouth as [place] 00 needed for Medical Migraine. Branch May repeat in 2 hours if needed Butalbital- 2021-05 Yes [id number] 1{capsu Take 1 [facility] Acetaminoph 1-12 le} capsule by it y of en-Caff 00:00: mouth [place] (FIORICET) 00 every 6 Medica l 50-300-40 (six) Branch mg per hours as capsule needed for Other (headache) . rizatriptan 2021-05 Yes [id number] 10mg Take 1 [facility] 10 mg 1-12 tablet by ity of tablet 00:00: mouth as [place] 00 needed for Medical Migraine. Branch May repeat in 2 hours if needed Butalbital- 2021-05 Yes [id number] 1{capsu Take 1 [facility] Acetaminoph 1-12 le} capsule by it y of en-Caff 00:00: mouth [place] (FIORICET) 00 every 6 Medica l 50-300-40 (six) Branch mg per hours as capsule needed for Other (headache) . rizatriptan 2021-05 Yes [id number] 10mg Take 1 [facility] 10 mg 1-12 tablet by ity of tablet 00:00: mouth as [place] 00 needed for Medical Migraine. Branch May repeat in 2 hours if needed Butalbital- 2021-05 Yes [id number] 1{capsu Take 1 [facility] Acetaminoph 1-12 le} capsule by it y of en-Caff 00:00: mouth [place] (FIORICET) 00 every 6 Medica l 50-300-40 (six) Branch mg per hours as capsule needed for Other (headache) . rizatriptan 2021-05 Yes [id number] 10mg Take 1 [facility] 10 mg 1-12 tablet by ity of tablet 00:00: mouth as [place] 00 needed for Medical Migraine. Branch May repeat in 2 hours if needed Butalbital- 2021-05 Yes [id number] 1{capsu Take 1 [facility] Acetaminoph 1-12 le} capsule by it y of en-Caff 00:00: mouth [place] (FIORICET) 00 every 6 Medica l 50-300-40 (six) Branch mg per hours as capsule needed for Other (headache) . rizatriptan 2021-05 Yes [id number] 10mg Take 1 [facility] 10 mg 1-12 tablet by ity of tablet 00:00: mouth as [place] 00 needed for Medical Migraine. Branch May repeat in 2 hours if needed Butalbital- 2021-05 Yes [id number] 1{capsu Take 1 [facility] Acetaminoph 1-12 le} capsule by it y of en-Caff 00:00: mouth [place] (FIORICET) 00 every 6 Medica l 50-300-40 (six) Branch mg per hours as capsule needed for Other (headache) . rizatriptan 2021-05 Yes [id number] 10mg Take 1 [facility] 10 mg 1-12 tablet by ity of tablet 00:00: mouth as [place] 00 needed for Medical Migraine. Branch May repeat in 2 hours if needed Butalbital- 2021-05 Yes [id number] 1{capsu Take 1 [facility] Acetaminoph 1-12 le} capsule by it y of en-Caff 00:00: mouth [place] (FIORICET) 00 every 6 Medica l 50-300-40 (six) Branch mg per hours as capsule needed for Other (headache) . rizatriptan 2021-05 Yes [id number] 10mg Take 1 [facility] 10 mg 1-12 tablet by ity of tablet 00:00: mouth as [place] 00 needed for Medical Migraine. Branch May repeat in 2 hours if needed Butalbital- 2021-05 Yes [id number] 1{capsu Take 1 [facility] Acetaminoph 1-12 le} capsule by it y of en-Caff 00:00: mouth [place] (FIORICET) 00 every 6 Medica l 50-300-40 (six) Branch mg per hours as capsule needed for Other (headache) . rizatriptan 2021-05 Yes [id number] 10mg Take 1 [facility] 10 mg 1-12 tablet by ity of tablet 00:00: mouth as [place] 00 needed for Medical Migraine. Branch May repeat in 2 hours if needed Butalbital- 2021-05 Yes [id number] 1{capsu Take 1 [facility] Acetaminoph 1-12 le} capsule by it y of en-Caff 00:00: mouth [place] (FIORICET) 00 every 6 Medica l 50-300-40 (six) Branch mg per hours as capsule needed for Other (headache) . rizatriptan 2021-05 Yes [id number] 10mg Take 1 [facility] 10 mg 1-12 tablet by ity of tablet 00:00: mouth as [place] 00 needed for Medical Migraine. Branch May repeat in 2 hours if needed Butalbital- 2021-05 Yes [id number] 1{capsu Take 1 [facility] Acetaminoph 1-12 le} capsule by it y of en-Caff 00:00: mouth [place] (FIORICET) 00 every 6 Medica l 50-300-40 (six) Branch mg per hours as capsule needed for Other (headache) . rizatriptan 2021-05 Yes [id number] 10mg Take 1 [facility] 10 mg 1-12 tablet by ity of tablet 00:00: mouth as [place] 00 needed for Medical Migraine. Branch May repeat in 2 hours if needed Butalbital- 2021-05 Yes [id number] 1{capsu Take 1 [facility] Acetaminoph 1-12 le} capsule by it y of en-Caff 00:00: mouth [place] (FIORICET) 00 every 6 Medica l 50-300-40 (six) Branch mg per hours as capsule needed for Other (headache) . rizatriptan 2021-05 Yes [id number] 10mg Take 1 [facility] 10 mg 1-12 tablet by ity of tablet 00:00: mouth as [place] 00 needed for Medical Migraine. Branch May repeat in 2 hours if needed Butalbital- 2021-05 Yes [id number] 1{capsu Take 1 [facility] Acetaminoph 1-12 le} capsule by it y of en-Caff 00:00: mouth [place] (FIORICET) 00 every 6 Medica l 50-300-40 (six) Branch mg per hours as capsule needed for Other (headache) . rizatriptan 2021-05 Yes [id number] 10mg Take 1 [facility] 10 mg 1-12 tablet by ity of tablet 00:00: mouth as [place] 00 needed for Medical Migraine. Branch May repeat in 2 hours if needed Butalbital- 2021-05 Yes [id number] 1{capsu Take 1 [facility] Acetaminoph 1-12 le} capsule by it y of en-Caff 00:00: mouth [place] (FIORICET) 00 every 6 Medica l 50-300-40 (six) Branch mg per hours as capsule needed for Other (headache) . rizatriptan 2021-05 Yes [id number] 10mg Take 1 [facility] 10 mg 1-12 tablet by ity of tablet 00:00: mouth as [place] 00 needed for Medical Migraine. Branch May repeat in 2 hours if needed Butalbital- 2021-05 Yes [id number] 1{capsu Take 1 [facility] Acetaminoph 1-12 le} capsule by it y of en-Caff 00:00: mouth [place] (FIORICET) 00 every 6 Medica l 50-300-40 (six) Branch mg per hours as capsule needed for Other (headache) . rizatriptan 2021-05 Yes [id number] 10mg Take 1 [facility] 10 mg 1-12 tablet by ity of tablet 00:00: mouth as [place] 00 needed for Medical Migraine. Branch May repeat in 2 hours if needed Butalbital- 2021-05 Yes [id number] 1{capsu Take 1 [facility] Acetaminoph 1-12 le} capsule by it y of en-Caff 00:00: mouth [place] (FIORICET) 00 every 6 Medica l 50-300-40 (six) Branch mg per hours as capsule needed for Other (headache) . rizatriptan 2021-05 Yes [id number] 10mg Take 1 [facility] 10 mg 1-12 tablet by ity of tablet 00:00: mouth as [place] 00 needed for Medical Migraine. Branch May repeat in 2 hours if needed Butalbital- 2021-05 Yes [id number] 1{capsu Take 1 [facility] Acetaminoph 1-12 le} capsule by it y of en-Caff 00:00: mouth [place] (FIORICET) 00 every 6 Medica l 50-300-40 (six) Branch mg per hours as capsule needed for Other (headache) . rizatriptan 2021-05 Yes [id number] 10mg Take 1 [facility] 10 mg 1-12 tablet by ity of tablet 00:00: mouth as [place] 00 needed for Medical Migraine. Branch May repeat in 2 hours if needed Butalbital- 2021-05 Yes [id number] 1{capsu Take 1 [facility] Acetaminoph 1-12 le} capsule by it y of en-Caff 00:00: mouth [place] (FIORICET) 00 every 6 Medica l 50-300-40 (six) Branch mg per hours as capsule needed for Other (headache) . rizatriptan 2021-05 Yes [id number] 10mg Take 1 [facility] 10 mg 1-12 tablet by ity of tablet 00:00: mouth as [place] 00 needed for Medical Migraine. Branch May repeat in 2 hours if needed Butalbital- 2021-05 Yes [id number] 1{capsu Take 1 [facility] Acetaminoph 1-12 le} capsule by it y of en-Caff 00:00: mouth [place] (FIORICET) 00 every 6 Medica l 50-300-40 (six) Branch mg per hours as capsule needed for Other (headache) . rizatriptan 2021-05 Yes [id number] 10mg Take 1 [facility] 10 mg 1-12 tablet by ity of tablet 00:00: mouth as [place] 00 needed for Medical Migraine. Branch May repeat in 2 hours if needed Butalbital- 2021-05 Yes [id number] 1{capsu Take 1 [facility] Acetaminoph 1-12 le} capsule by it y of en-Caff 00:00: mouth [place] (FIORICET) 00 every 6 Medica l 50-300-40 (six) Branch mg per hours as capsule needed for Other (headache) . rizatriptan 2021-05 Yes [id number] 10mg Take 1 [facility] 10 mg 1-12 tablet by ity of tablet 00:00: mouth as [place] 00 needed for Medical Migraine. Branch May repeat in 2 hours if needed Butalbital- 2021-05 Yes [id number] 1{capsu Take 1 [facility] Acetaminoph 1-12 le} capsule by it y of en-Caff 00:00: mouth [place] (FIORICET) 00 every 6 Medica l 50-300-40 (six) Branch mg per hours as capsule needed for Other (headache) . rizatriptan 2021-05 Yes [id number] 10mg Take 1 [facility] 10 mg 1-12 tablet by ity of tablet 00:00: mouth as [place] 00 needed for Medical Migraine. Branch May repeat in 2 hours if needed Butalbital- 2021-05 Yes [id number] 1{capsu Take 1 [facility] Acetaminoph 1-12 le} capsule by it y of en-Caff 00:00: mouth [place] (FIORICET) 00 every 6 Medica l 50-300-40 (six) Branch mg per hours as capsule needed for Other (headache) . rizatriptan 2021-05 Yes [id number] 10mg Take 1 [facility] 10 mg 1-12 tablet by ity of tablet 00:00: mouth as [place] 00 needed for Medical Migraine. Branch May repeat in 2 hours if needed Butalbital- 2021-05 Yes [id number] 1{capsu Take 1 [facility] Acetaminoph 1-12 le} capsule by it y of en-Caff 00:00: mouth [place] (FIORICET) 00 every 6 Medica l 50-300-40 (six) Branch mg per hours as capsule needed for Other (headache) . rizatriptan 2021-05 Yes [id number] 10mg Take 1 [facility] 10 mg 1-12 tablet by ity of tablet 00:00: mouth as [place] 00 needed for Medical Migraine. Branch May repeat in 2 hours if needed Butalbital- 2021-05 Yes [id number] 1{capsu Take 1 [facility] Acetaminoph 1-12 le} [...] ONCE, 1 Medical 50 mcg dose, On [facility] 03/15/22 at 1030, Routine proMETHazin 2021-05 No 25mg 25 mg, Uni vers e 05-15 Oral, ity of (PHENERGAN) 14:45: 14:55 ONCE, 1 [place] 25 00 :00 dose, On Medica l mg [facility] 03/15/22 at 0945, [place] FENTanyl PF 2021-05 No 50ug 50 mcg, Un sushant (SUBLIMAZE 05-15 Slow IV ity o f (PF)) 14:45: 13:58 Push, [place] injection 00 :00 ONCE, 1 Medical 50 mcg dose, On [facility] 03/15/22 at 0945, Routine ondansetron 2021-05 No 4mg 4 mg, Slow [facility] (ZOFRAN 05-15 IV [place], ity of (PF)) 14:00: 13:58 ONCE, 1 [place] injection 4 00 :00 dose, On Medi yessi mg [facility] 03/15/22 at 0900, [place] ondansetron 2021-05 Yes [id number] 4mg Take 1 [facility] 4 mg 05-15 tablet by ity of disintegrat 00:00: mouth [place] ing tablet 00 every 8 Medica l (eight) [place] hours as needed for Nausea and Vomiting (N/V). ketorolac 2021-05 Yes [id number] 10mg Take 1 U nivers 10 mg 1-03 tablet by ity of tablet 00:00: mouth [place] 00 every 6 Medical (six) Branch hours as needed for Pain (scale 7-10). proMETHazin 2021-05 Yes [id number] 25mg Take 1 [facility] e 25 mg 1-03 tablet by ity of tablet 00:00: mouth [place] 00 every 6 Medical (six) Branch hours as needed for N/V unresponsi ve to Ondansetro n. ondansetron 2021-05 Yes [id number] 4mg Take 1 [facility] 4 mg 1-03 tablet by ity of disintegrat 00:00: mouth [place] ing tablet 00 every 8 Medica l (eight) Branch hours as needed for Nausea and Vomiting (N/V). ketorolac 2021-05 Yes [id number] 10mg Take 1 U nivers 10 mg 1-03 tablet by ity of tablet 00:00: mouth [place] 00 every 6 Medical (six) Branch hours as needed for Pain (scale 7-10). proMETHazin 2021-05 Yes [id number] 25mg Take 1 Univers e 25 mg 1-03 tablet by ity of tablet 00:00: mouth [place] 00 every 6 Medical (six) Branch hours as needed for N/V unresponsi ve to Ondansetro n. carvediloL 2021-05 Yes [id number] 25mg Take 1 U nivers 25 mg 1-03 tablet by ity of tablet 00:00: mouth in [place] 00 the Medical morning Branch and 1 tablet in the evening. Take with meals. ondansetron 2021-05 Yes [id number] 4mg Take 1 [facility] 4 mg 1-03 tablet by ity of disintegrat 00:00: mouth [place] ing tablet 00 every 8 Medica l (eight) Branch hours as needed for Nausea and Vomiting (N/V). ketorolac 2021-05 Yes [id number] 10mg Take 1 U nivers 10 mg 1-03 tablet by ity of tablet 00:00: mouth [place] 00 every 6 Medical (six) Branch hours as needed for Pain (scale 7-10). proMETHazin 2021-05 Yes [id number] 25mg Take 1 Univers e 25 mg 1-03 tablet by ity of tablet 00:00: mouth [place] 00 every 6 Medical (six) Branch hours as needed for N/V unresponsi ve to Ondansetro n. carvediloL 2021-05 Yes [id number] 25mg Take 1 U nivers 25 mg 1-03 tablet by ity of tablet 00:00: mouth in [place] 00 the Medical morning Branch and 1 tablet in the evening. Take with meals. ondansetron 2021-05 Yes [id number] 4mg Take 1 [facility] 4 mg 1-03 tablet by ity of disintegrat 00:00: mouth [place] ing tablet 00 every 8 Medica l (eight) Branch hours as needed for Nausea and Vomiting (N/V). ketorolac 2021-05 Yes [id number] 10mg Take 1 U nivers 10 mg 1-03 tablet by ity of tablet 00:00: mouth [place] 00 every 6 Medical (six) Branch hours as needed for Pain (scale 7-10). proMETHazin 2021-05 Yes [id number] 25mg Take 1 Univers e 25 mg 1-03 tablet by ity of tablet 00:00: mouth [place] 00 every 6 Medical (six) Branch hours as needed for N/V unresponsi ve to Ondansetro n. carvediloL 2021-05 Yes [id number] 25mg Take 1 U nivers 25 mg 1-03 tablet by ity of tablet 00:00: mouth in [place] 00 the Medical morning Branch and 1 tablet in the evening. Take with meals. ondansetron 2021-05 Yes [id number] 4mg Take 1 [facility] 4 mg 1-03 tablet by ity of disintegrat 00:00: mouth [place] ing tablet 00 every 8 Medica l (eight) Branch hours as needed for Nausea and Vomiting (N/V). ketorolac 2021-05 Yes [id number] 10mg Take 1 U nivers 10 mg 1-03 tablet by ity of tablet 00:00: mouth [place] 00 every 6 Medical (six) Branch hours as needed for Pain (scale 7-10). proMETHazin 2021-05 Yes [id number] 25mg Take 1 Univers e 25 mg 1-03 tablet by ity of tablet 00:00: mouth [place] 00 every 6 Medical (six) Branch hours as needed for N/V unresponsi ve to Ondansetro n. carvediloL 2021-05 Yes [id number] 25mg Take 1 U nivers 25 mg 1-03 tablet by ity of tablet 00:00: mouth in [place] 00 the Medical morning Branch and 1 tablet in the evening. Take with meals. ondansetron 2021-05 Yes [id number] 4mg Take 1 [facility] 4 mg 1-03 tablet by ity of disintegrat 00:00: mouth [place] ing tablet 00 every 8 Medica l (eight) Branch hours as needed for Nausea and Vomiting (N/V). ketorolac 2021-05 Yes [id number] 10mg Take 1 U nivers 10 mg 1-03 tablet by ity of tablet 00:00: mouth [place] 00 every 6 Medical (six) Branch hours as needed for Pain (scale 7-10). proMETHazin 2021-05 Yes [id number] 25mg Take 1 Univers e 25 mg 1-03 tablet by ity of tablet 00:00: mouth [place] 00 every 6 Medical (six) Branch hours as needed for N/V unresponsi ve to Ondansetro n. carvediloL 2021-05 Yes [id number] 25mg Take 1 U nivers 25 mg 1-03 tablet by ity of tablet 00:00: mouth in [place] 00 the Medical morning Branch and 1 tablet in the evening. Take with meals. ondansetron 2021-05 Yes [id number] 4mg Take 1 [facility] 4 mg 1-03 tablet by ity of disintegrat 00:00: mouth [place] ing tablet 00 every 8 Medica l (eight) Branch hours as needed for Nausea and Vomiting (N/V). ketorolac 2021-05 Yes [id number] 10mg Take 1 U nivers 10 mg 1-03 tablet by ity of tablet 00:00: mouth [place] 00 every 6 Medical (six) Branch hours as needed for Pain (scale 7-10). proMETHazin 2021-05 Yes [id number] 25mg Take 1 Univers e 25 mg 1-03 tablet by ity of tablet 00:00: mouth [place] 00 every 6 Medical (six) Branch hours as needed for N/V unresponsi ve to Ondansetro n. carvediloL 2021-05 Yes [id number] 25mg Take 1 U nivers 25 mg 1-03 tablet by ity of tablet 00:00: mouth in [place] 00 the Medical morning Branch and 1 tablet in the evening. Take with meals. ondansetron 2021-05 Yes [id number] 4mg Take 1 [facility] 4 mg 1-03 tablet by ity of disintegrat 00:00: mouth [place] ing tablet 00 every 8 Medica l (eight) Branch hours as needed for Nausea and Vomiting (N/V). ketorolac 2021-05 Yes [id number] 10mg Take 1 U nivers 10 mg 1-03 tablet by ity of tablet 00:00: mouth [place] 00 every 6 Medical (six) Branch hours as needed for Pain (scale 7-10). proMETHazin 2021-05 Yes [id number] 25mg Take 1 Univers e 25 mg 1-03 tablet by ity of tablet 00:00: mouth [place] 00 every 6 Medical (six) Branch hours as needed for N/V unresponsi ve to Ondansetro n. carvediloL 2021-05 Yes [id number] 25mg Take 1 U nivers 25 mg 1-03 tablet by ity of tablet 00:00: mouth in [place] 00 the Medical morning Branch and 1 tablet in the evening. Take with meals. ondansetron 2021-05 Yes [id number] 4mg Take 1 [facility] 4 mg 1-03 tablet by ity of disintegrat 00:00: mouth [place] ing tablet 00 every 8 Medica l (eight) Branch hours as needed for Nausea and Vomiting (N/V). ketorolac 2021-05 Yes [id number] 10mg Take 1 U nivers 10 mg 1-03 tablet by ity of tablet 00:00: mouth [place] 00 every 6 Medical (six) Branch hours as needed for Pain (scale 7-10). proMETHazin 2021-05 Yes [id number] 25mg Take 1 Univers e 25 mg 1-03 tablet by ity of tablet 00:00: mouth [place] 00 every 6 Medical (six) Branch hours as needed for N/V unresponsi ve to Ondansetro n. carvediloL 2021-05 Yes [id number] 25mg Take 1 U nivers 25 mg 1-03 tablet by ity of tablet 00:00: mouth in [place] 00 the Medical morning Branch and 1 tablet in the evening. Take with meals. ondansetron 2021-05 Yes [id number] 4mg Take 1 [facility] 4 mg 1-03 tablet by ity of disintegrat 00:00: mouth [place] ing tablet 00 every 8 Medica l (eight) Branch hours as needed for Nausea and Vomiting (N/V). ketorolac 2021-05 Yes [id number] 10mg Take 1 U nivers 10 mg 1-03 tablet by ity of tablet 00:00: mouth [place] 00 every 6 Medical (six) Branch hours as needed for Pain (scale 7-10). proMETHazin 2021-05 Yes [id number] 25mg Take 1 Univers e 25 mg 1-03 tablet by ity of tablet 00:00: mouth [place] 00 every 6 Medical (six) Branch hours as needed for N/V unresponsi ve to Ondansetro n. carvediloL 2021-05 Yes [id number] 25mg Take 1 U nivers 25 mg 1-03 tablet by ity of tablet 00:00: mouth in [place] [address] the Medical morning Branch and 1 tablet in the evening. Take with meals. carvediloL 2021-05 Yes [id number] 25mg Take 1 U nivers 25 mg 1-03 tablet by ity of tablet 00:00: mouth in [place] [address] the Medical morning Branch and 1 tablet in the evening. Take with meals. carvediloL 2021-05 Yes [id number] 25mg Take 1 U nivers 25 mg 1-03 tablet by ity of tablet 00:00: mouth in [place] [address] the Medical morning Branch and 1 tablet in the evening. Take with meals. carvediloL 2021-05 Yes [id number] 25mg Take 1 U nivers 25 mg 1-03 tablet by ity of tablet 00:00: mouth in [place] 00 the Medical morning Branch and 1 tablet in the evening. Take with meals. carvediloL 2021-05 Yes [id number] 25mg Take 1 U nivers 25 mg 1-03 tablet by ity of tablet 00:00: mouth in [place] [address] the Medical morning Branch and 1 tablet in the evening. Take with meals. carvediloL 2021-05 Yes [id number] 25mg Take 1 U nivers 25 mg 1-03 tablet by ity of tablet 00:00: mouth in [place] [address] the [facility] morning [place] and 1 tablet in the evening. Take with meals. carvediloL 2021-05 Yes [id number] 25mg Take 1 U nivers 25 mg 1-03 tablet by ity of tablet 00:00: mouth in [place] [address] the Medical morning [place] and 1 tablet in the evening. Take with meals. carvediloL 2021-05 Yes [id number] 25mg Take 1 U nivers 25 mg 1-03 tablet by ity of tablet 00:00: mouth in [place] [address] the Medical morning [place] and 1 tablet in the evening. Take with meals. carvediloL 2021-05 Yes [id number] 25mg Take 1 U nivers 25 mg 1-03 tablet by ity of tablet 00:00: mouth in [place] [address] the Medical morning [place] and 1 tablet in the evening. Take with meals. carvediloL 2021-05 Yes [id number] 25mg Take 1 U nivers 25 mg 1-03 tablet by ity of tablet 00:00: mouth in [place] [address] the Medical morning [place] and 1 tablet in the evening. Take with meals. carvediloL 2021-05 Yes [id number] 25mg Take 1 U nivers 25 mg 1-03 tablet by ity of tablet 00:00: mouth in [place] [address] the Medical morning [place] and 1 tablet in the evening. Take with meals. carvediloL 2021-05 Yes [id number] 25mg Take 1 U nivers 25 mg 1-03 tablet by ity of tablet 00:00: mouth in [place] [address] the [facility] morning [place] and 1 tablet in the evening. Take with meals. carvediloL 2021-05 Yes [id number] 25mg Take 1 U nivers 25 mg 1-03 tablet by ity of tablet 00:00: mouth in [place] [address] the Medical morning [place] and 1 tablet in the evening. Take with meals. carvediloL 2021-05 Yes [id number] 25mg Take 1 U nivers 25 mg 1-03 tablet by ity of tablet 00:00: mouth in [address] morning [place] and 1 tablet in the evening. Take with meals. carvediloL 2021-05 Yes [id number] 25mg Take 1 U nivers 25 mg 1-03 tablet by ity of tablet 00:00: mouth in [address] morning [place] and 1 tablet in the evening. Take with meals. carvediloL 2021-05 Yes [id number] 25mg Take 1 U nivers 25 mg 1-03 tablet by ity of tablet 00:00: mouth in [address] morning [place] and 1 tablet in the evening. Take with meals. carvediloL 2021-05 Yes [id number] 25mg Take 1 U nivers 25 mg 1-03 tablet by ity of tablet 00:00: mouth in [place] [address] the [facility] morning [place] and 1 tablet in the evening. Take with meals. carvediloL 2021-05 Yes [id number] 25mg Take 1 U nivers 25 mg 1-03 tablet by ity of tablet 00:00: mouth in [place] [address] [facility] and 1 tablet in the evening. Take with meals. carvediloL 2021-05 Yes [id number] 25mg Take 1 U nivers 25 mg 1-03 tablet by ity of tablet 00:00: mouth in [place] [address] [facility] and 1 tablet in the evening. Take with meals. carvediloL 2021-05 Yes [id number] 25mg Take 1 U nivers 25 mg 1-03 tablet by ity of tablet 00:00: mouth in [place] [address] [facility] and 1 tablet in the evening. Take with meals. carvediloL 2021-05 Yes [id number] 25mg Take 1 U nivers 25 mg 1-03 tablet by ity of tablet 00:00: mouth in [address] and 1 tablet in the evening. Take with meals. carvediloL 2021-05 Yes [id number] 25mg Take 1 U nivers 25 mg 1-03 tablet by ity of tablet 00:00: mouth in [place] [address] [facility] and 1 tablet in the evening. Take with meals. carvediloL 2021-05- No [id number] 25mg Take 1 [facility] 25 mg 1-03 04-26 tablet by ity of tablet 00:00: 00:00 mouth in [place] 00 :[address] [facility] and 1 tablet in the evening. Take with meals. carvediloL 2021-05- No [id number] 25mg Take 1 [facility] 25 mg 1-03 04-26 tablet by ity of tablet 00:00: 00:00 mouth in [place] 00 :[address] [facility] and 1 tablet in the evening. Take with meals. ondansetron 2021-05- No [id number] 4mg Take 1 [facility] 4 mg 1-03 11-26 tablet by ity of disintegrat 00:00: 00:[place] 00 :00 every 8 Medica l (eight) Branch hours as needed for Nausea and Vomiting (N/V). ketorolac 2021-05- No [id number] 10mg Take 1 [facility] 10 mg 05-15 tablet by ity of tablet 00:00: 00:00 mouth [place] 00 :00 every 6 Medical (six) Branch hours as needed for Pain (scale 7-10). proMETHazin 2021-05- No [id number] 25mg Take 1 Univers e 25 mg 05-15 tablet by ity of tablet 00:00: 00:00 mouth [place] 00 :00 every 6 Medical (six) Branch hours as needed for N/V unresponsi ve to Ondansetro n. cephALEXin 2021-05- No [id number] 500mg Take 1 [facility] 500 mg 05-15 capsule by ity of capsule 00:00: 05:59 mouth 4 [place] 00 :00 (four) Medical times Branch daily for 3 days. cephALEXin 2021-05- No [id number] 500mg Take 1 [facility] 500 mg 05-15 capsule by ity of capsule 00:00: 05:59 mouth 4 [place] 00 :00 (four) Medical times Branch daily for 3 days. cephALEXin 2021-05- No [id number] 500mg Take 1 [facility] 500 mg 05-15 capsule by ity of capsule 00:00: 05:59 mouth 4 [place] 00 :00 (four) Medical times Branch daily for 3 days. predniSONE 2021-05- No [id number] 20mg Take 1 [facility] 20 mg 003-15 [...] Branch 03/11/22 at 1100, 1 mL diphenhydrA 2021-05 No 25mg 25 mg, Uni vers MINE 0-30 10-30 Slow IV ity of (BENADRYL) 15:46: 16:00 Push, [place] injection 00 :00 ONCE, 1 Medical 25 mg dose, On Branch 03/11/22 at 1100, STAT NaCl 0.9% 2021-05 [...] piggyback at 0945, [place] proMETHazin 2021-05 Yes [id number] 25mg Take 1 Univers e 25 mg 0-30 tablet by ity of tablet 00:00: mouth [place] 00 every 6 Medical (six) Branch hours as needed for Nausea and Vomiting (N/V). methocarbam 2021-05 Yes [id number] 500mg Take 1 Univers oL 500 mg 0-30 tablet by ity o f tablet 00:00: mouth 3 (three) Medical times Branch daily as needed for Pain (scale 7-10). proMETHazin 2021-05 Yes [id number] 25mg Take 1 Univers e 25 mg 0-30 tablet by ity of tablet 00:00: mouth [place] 00 every 6 Medical (six) Branch hours as needed for Nausea and Vomiting (N/V). methocarbam 2021-05 Yes [id number] 500mg Take 1 Univers oL 500 mg 0-30 tablet by ity o f tablet 00:00: mouth 3 (three) Medical times Branch daily as needed for Pain (scale 7-10). proMETHazin 2021-05 Yes [id number] 25mg Take 1 Univers e 25 mg 0-30 tablet by ity of tablet 00:00: mouth [place] 00 every 6 Medical (six) Branch hours as needed for Nausea and Vomiting (N/V). methocarbam 2021-05 Yes [id number] 500mg Take 1 Univers oL 500 mg 0-30 tablet by ity o f tablet 00:00: mouth (three) Medical times Branch daily as needed for Pain (scale 7-10). proMETHazin 2021-05 Yes [id number] 25mg Take 1 Univers e 25 mg 0-30 tablet by ity of tablet 00:00: mouth [place] 00 every 6 Medical (six) Branch hours as needed for Nausea and Vomiting (N/V). methocarbam 2021-05 Yes [id number] 500mg Take 1 [facility] oL 500 mg 0-30 tablet by ity o f tablet 00:00: mouth (three) Medical times Branch daily as needed for Pain (scale 7-10). proMETHazin 2021-05 Yes [id number] 25mg Take 1 Univers e 25 mg 0-30 tablet by ity of tablet 00:00: mouth [place] 00 every 6 Medical (six) Branch hours as needed for Nausea and Vomiting (N/V). methocarbam 2021-05 Yes [id number] 500mg Take 1 Univers oL 500 mg 0-30 tablet by [facility] o f tablet 00:00: mouth 3 (three) Medical times Branch daily as needed for Pain (scale 7-10). proMETHazin 2021-05 Yes [id number] 25mg Take 1 [facility] 25 mg 0-30 tablet by [facility] of tablet 00:00: mouth [place] 00 every 6 Medical (six) Branch hours as needed for Nausea and Vomiting (N/V). methocarbam 2021-05 Yes [id number] 500mg Take 1 [facility] oL 500 mg 0-30 tablet by [facility] o f tablet 00:00: mouth 3 [place] 00 (three) Medical times Branch daily as needed for Pain (scale 7-10). proMETHazin 2021-05 Yes [id number] 25mg Take 1 [facility] 25 mg 0-30 tablet by [facility] of tablet 00:00: mouth [place] 00 every 6 Medical (six) Branch hours as needed for Nausea and Vomiting (N/V). methocarbam 2021-05 Yes [id number] 500mg Take 1 [facility] oL 500 mg 0-30 tablet by [facility] o f tablet 00:00: mouth 3 [place] 00 (three) Medical times Branch daily as needed for Pain (scale 7-10). proMETHazin 2021-05 Yes [id number] 25mg Take 1 [facility] 25 mg 0-30 tablet by [facility] of tablet 00:00: mouth [place] 00 every 6 Medical (six) Branch hours as needed for Nausea and Vomiting (N/V). methocarbam 2021-05 Yes [id number] 500mg Take 1 [facility] oL 500 mg 0-30 tablet by [facility] o f tablet 00:00: mouth 3 00 (three) Medical times Branch daily as needed for Pain (scale 7-10). proMETHazin 2021-05 Yes [id number] 25mg Take 1 [facility] 25 mg 0-30 tablet by [facility] of tablet 00:00: mouth [place] 00 every 6 Medical (six) Branch hours as needed for Nausea and Vomiting (N/V). methocarbam 2021-05 Yes [id number] 500mg Take 1 [facility] oL 500 mg 0-30 tablet by [facility] o f tablet 00:00: mouth 3 [place] 00 (three) Medical times Branch daily as needed for Pain (scale 7-10). proMETHazin 2021-05 Yes [id number] 25mg Take 1 [facility] 25 mg 0-30 tablet by [facility] of tablet 00:00: mouth [place] 00 every 6 Medical (six) Branch hours as needed for Nausea and Vomiting (N/V). methocarbam 2021-05 Yes [id number] 500mg Take 1 [facility] oL 500 mg 0-30 tablet by [facility] o f tablet 00:00: mouth 3 [place] 00 (three) Medical times Branch daily as needed for Pain (scale 7-10). proMETHazin 2021-05 Yes [id number] 25mg Take 1 [facility] 25 mg 0-30 tablet by [facility] of tablet 00:00: mouth [place] 00 every 6 Medical (six) Branch hours as needed for Nausea and Vomiting (N/V). methocarbam 2021-05 Yes [id number] 500mg Take 1 [facility] oL 500 mg 0-30 tablet by it[facility] o f tablet 00:00: mouth 3 [place] 00 (three) Medical times Branch daily as needed for Pain (scale 7-10). proMETHazin 2021-05 Yes [id number] 25mg Take 1 [facility] 25 mg 0-30 tablet by [facility] of tablet 00:00: mouth [place] 00 every 6 Medical (six) Branch hours as needed for Nausea and Vomiting (N/V). proMETHazin 2021-05 Yes [id number] 25mg Take 1 [facility] 25 mg 0-30 tablet by [facility] of tablet 00:00: mouth [place] 00 every 6 Medical (six) Branch hours as needed for Nausea and Vomiting (N/V). proMETHazin 2021-05 Yes [id number] 25mg Take 1 [facility] 25 mg 0-30 tablet by [facility] of tablet 00:00: mouth [place] 00 every 6 Medical (six) Branch hours as needed for Nausea and Vomiting (N/V). proMETHazin 2021-05 Yes [id number] 25mg Take 1 [facility] 25 mg 0-30 tablet by [facility] of tablet 00:00: mouth [place] 00 every 6 Medical (six) Branch hours as needed for Nausea and Vomiting (N/V). proMETHazin 2021-05 Yes [id number] 25mg Take 1 [facility] 25 mg 0-30 tablet by [facility] of tablet 00:00: mouth [place] 00 every 6 Medical (six) Branch hours as needed for Nausea and Vomiting (N/V). proMETHazin 2021-05 Yes [id number] 25mg Take 1 [facility] 25 mg 0-30 tablet by [facility] of tablet 00:00: mouth [place] 00 every 6 Medical (six) Branch hours as needed for Nausea and Vomiting (N/V). proMETHazin 2021-05 Yes [id number] 25mg Take 1 [facility] 25 mg 0-30 tablet by [facility] of tablet 00:00: mouth [place] 00 every 6 Medical (six) Branch hours as needed for Nausea and Vomiting (N/V). proMETHazin 2021-05 Yes [id number] 25mg Take 1 [facility] 25 mg 0-30 tablet by [facility] of tablet 00:00: mouth [place] 00 every 6 Medical (six) Branch hours as needed for Nausea and Vomiting (N/V). proMETHazin 2021-05 Yes [id number] 25mg Take 1 [facility] 25 mg 0-30 tablet by [facility] of tablet 00:00: mouth [place] 00 every 6 Medical (six) Branch hours as needed for Nausea and Vomiting (N/V). proMETHazin 2021-05 Yes [id number] 25mg Take 1 [facility] 25 mg 0-30 tablet by [facility] of tablet 00:00: mouth [place] 00 every 6 Medical (six) Branch hours as needed for Nausea and Vomiting (N/V). proMETHazin 2021-05 Yes [id number] 25mg Take 1 [facility] 25 mg 0-30 tablet by [facility] of tablet 00:00: mouth [place] 00 every 6 Medical (six) Branch hours as needed for Nausea and Vomiting (N/V). proMETHazin 2021-05 Yes [id number] 25mg Take 1 [facility] 25 mg 0-30 tablet by [facility] of tablet 00:00: mouth [place] 00 every 6 Medical (six) Branch hours as needed for Nausea and Vomiting (N/V). proMETHazin 2021-05 Yes [id number] 25mg Take 1 [facility] 25 mg 0-30 tablet by [facility] of tablet 00:00: mouth [place] 00 every 6 Medical (six) Branch hours as needed for Nausea and Vomiting (N/V). proMETHazin 2021-05 Yes [id number] 25mg Take 1 [facility] 25 mg 0-30 tablet by [facility] of tablet 00:00: mouth [place] 00 every 6 Medical (six) Branch hours as needed for Nausea and Vomiting (N/V). proMETHazin 2021-05 Yes [id number] 25mg Take 1 [facility] 25 mg 0-30 tablet by [facility] of tablet 00:00: mouth [place] 00 every 6 Medical (six) Branch hours as needed for Nausea and Vomiting (N/V). proMETHazin 2021-05 Yes [id number] 25mg Take 1 [facility] 25 mg 0-30 tablet by [facility] of tablet 00:00: mouth [place] 00 every 6 Medical (six) Branch hours as needed for Nausea and Vomiting (N/V). proMETHazin 2021-05 Yes [id number] 25mg Take 1 [facility] 25 mg 0-30 tablet by [facility] of tablet 00:00: mouth [place] 00 every 6 Medical (six) Branch hours as needed for Nausea and Vomiting (N/V). proMETHazin 2021-05- No [id number] 25mg Take 1 [facility] 25 mg 0-30 03-21 tablet by [facility] of tablet 00:00: 00:00 mouth [place] 00 :00 every 6 Medical (six) Branch hours as needed for Nausea and Vomiting (N/V). methocarbam 2021-05 No [id number] 500mg Take 1 [facility] oL 500 mg 0-30 11-26 tablet by [facility] of tablet 00:00: 00:00 mouth 3 [place] 00 :00 (three) Medical times Branch daily as needed for Pain (scale 7-10). topiramate 2021-05 Yes [id number] 100mg Take 4 [facility] 25 mg 0-21 tablets by [facility] of tablet 00:00: mouth in [place] 00 the Medical morning. [place] topiramate 2021-05 Yes [id number] 100mg Take 4 [facility] 25 mg 0-21 tablets by [facility] of tablet 00:00: mouth in [place] 00 the Medical morning. [place] topiramate 2021-05 Yes [id number] 100mg Take 4 [facility] 25 mg 0-21 tablets by [facility] of tablet 00:00: mouth in [place] 00 the Medical morning. [place] topiramate 2021-05 Yes [id number] 100mg Take 4 [facility] 25 mg 0-21 tablets by [facility] of tablet 00:00: mouth in [place] 00 the Medical morning. [place] topiramate 2021-05 Yes [id number] 100mg Take 4 [facility] 25 mg 0-21 tablets by [facility] of tablet 00:00: mouth in [place] 00 the Medical morning. [place] topiramate 2021-05 Yes [id number] 100mg Take 4 [facility] 25 mg 0-21 tablets by [facility] of tablet 00:00: mouth in [place] 00 the Medical morning. [place] topiramate 2021-05 Yes [id number] 100mg Take 4 [facility] 25 mg 0-21 tablets by [facility] of tablet 00:00: mouth in [place] 00 the Medical morning. Branch topiramate 2021-1 Yes [id number] 100mg Take 4 [facility] 25 mg 0-21 tablets by [facility] of tablet 00:00: mouth in [place] the Medical morning. Branch topiramate 2-1 Yes [id number] 100mg Take 4 [facility] 25 mg 0-21 tablets by [facility] of tablet 00:00: mouth in [place] the Medical morning. Branch topiramate 2-1 Yes [id number] 100mg Take 4 [facility] 25 mg 0-21 tablets by [facility] of tablet 00:00: mouth in [place] the Medical morning. Branch topiramate 2-1 Yes [id number] 100mg Take 4 [facility] 25 mg 0-21 tablets by [facility] of tablet 00:00: mouth in [place] the Medical morning. Branch topiramate 2-1 Yes [id number] 100mg Take 4 [facility] 25 mg 0-21 tablets by [facility] of tablet 00:00: mouth in [place] the Medical morning. Branch topiramate 2021-1 Yes [id number] 100mg Take 4 [facility] 25 mg 0-21 tablets by [facility] of tablet 00:00: mouth in [place] the Medical morning. Branch topiramate 2021-1 Yes [id number] 100mg Take 4 [facility] 25 mg 0-21 tablets by [facility] of tablet 00:00: mouth in [place] the Medical morning. Branch topiramate 2-1 Yes [id number] 100mg Take 4 [facility] 25 mg 0-21 tablets by [facility] of tablet 00:00: mouth in [place] the Medical morning. Branch topiramate 2-1 Yes [id number] 100mg Take 4 [facility] 25 mg 0-21 tablets by [facility] of tablet 00:00: mouth in [place] the Medical morning. Branch topiramate 2-1 Yes [id number] 100mg Take 4 [facility] 25 mg 0-21 tablets by [facility] of tablet 00:00: mouth in [place] the Medical morning. Branch topiramate 2022-1 Yes [id number] 100mg Take 4 [facility] 25 mg 0-21 tablets by [facility] of tablet 00:00: mouth in [place] 00 the Medical morning. Branch topiramate 2022-1 Yes [id number] 100mg Take 4 [facility] 25 mg 0-21 tablets by [facility] of tablet 00:00: mouth in [place] 00 the Medical morning. Branch topiramate 2022-1 Yes [id number] 100mg Take 4 [facility] 25 mg 0-21 tablets by [facility] of tablet 00:00: mouth in [place] 00 the Medical morning. Branch topiramate 2-1 Yes [id number] 100mg Take 4 [facility] 25 mg 0-21 tablets by [facility] of tablet 00:00: mouth in [place] the Medical morning. Branch topiramate 2021-1 Yes [id number] 100mg Take 4 [facility] 25 mg 0-21 tablets by [facility] of tablet 00:00: mouth in [place] the Medical morning. Branch topiramate 2021-1 Yes [id number] 100mg Take 4 [facility] 25 mg 0-21 tablets by [facility] of tablet 00:00: mouth in [place] the Medical morning. Branch topiramate 2021- Yes [id number] 100mg Take 4 [facility] 25 mg 0-21 tablets by [facility] of tablet 00:00: mouth in [place] the Medical morning. Branch topiramate 2021- Yes [id number] 100mg Take 4 [facility] 25 mg 0-21 tablets by [facility] of tablet 00:00: mouth in [place] the Medical morning. Branch topiramate 2021- Yes [id number] 100mg Take 4 [facility] 25 mg 0-21 tablets by [facility] of tablet 00:00: mouth in [place] the Medical morning. Branch topiramate 2021- Yes [id number] 100mg Take 4 [facility] 25 mg 0-21 tablets by [facility] of tablet 00:00: mouth in [place] the Medical morning. Branch topiramate 2021- Yes [id number] 100mg Take 4 [facility] 25 mg 0-21 tablets by [facility] of tablet 00:00: mouth in [place] the Medical morning. Branch topiramate 2-1 Yes [id number] 100mg Take 4 [facility] 25 mg 0-21 tablets by [facility] of tablet 00:00: mouth in [place] 00 the Medical morning. Branch topiramate 2-1 Yes [id number] 100mg Take 4 [facility] 25 mg 0-21 tablets by [facility] of tablet 00:00: mouth in [place] 00 the Medical morning. Branch topiramate 2-1 Yes [id number] 100mg Take 4 [facility] 25 mg 0-21 tablets by [facility] of tablet 00:00: mouth in [place] 00 the Medical morning. Branch topiramate 2021-1 Yes [id number] 100mg Take 4 [facility] 25 mg 0-21 tablets by it[facility] of tablet 00:00: mouth in [place] 00 the Medical morning. Branch topiramate 2021-1 Yes [id number] 100mg Take 4 [facility] 25 mg 0-21 tablets by [facility] of tablet 00:00: mouth in [place] the Medical morning. Branch topiramate 2-1 Yes [id number] 100mg Take 4 [facility] 25 mg 0-21 tablets by it[facility] of tablet 00:00: mouth in [place] the Medical morning. Branch topiramate 2-1 Yes [id number] 100mg Take 4 [facility] 25 mg 0-21 tablets by [facility]y of tablet 00:00: mouth in [place] the Medical morning. Branch topiramate 2-1 Yes [id number] 100mg Take 4 [facility] 25 mg 0-21 tablets by it[facility] of tablet 00:00: mouth in [place] the Medical morning. Branch topiramate 2-1 Yes [id number] 100mg Take 4 [facility] 25 mg 0-21 tablets by it[facility] of tablet 00:00: mouth in [place] the Medical morning. Branch topiramate 2021-1 Yes [id number] 100mg Take 4 [facility] 25 mg 0-21 tablets by ity of tablet 00:00: mouth in [place] the Medical morning. Branch topiramate 2021-1 Yes [id number] 100mg Take 4 [facility] 25 mg 0-21 tablets by ity of tablet 00:00: mouth in [place] the Medical morning. Branch topiramate 2-1 Yes [id number] 100mg Take 4 [facility] 25 mg 0-21 tablets by [facility] of tablet 00:00: mouth in [place] the Medical morning. Branch topiramate 2-1 Yes [id number] 100mg Take 4 [facility] 25 mg 0-21 tablets by ity of tablet 00:00: mouth in [place] the Medical morning. Branch topiramate 2-1 Yes [id number] 100mg Take 4 [facility] 25 mg 0-21 tablets by it[facility] of tablet 00:00: mouth in [place] the Medical morning. Branch topiramate 2022-1 Yes [id number] 100mg Take 4 [facility] 25 mg 0-21 tablets by [facility] of tablet 00:00: mouth in [place] 00 the Medical morning. Branch topiramate 2022-1 Yes [id number] 100mg Take 4 [facility] 25 mg 0-21 tablets by [facility] of tablet 00:00: mouth in [place] 00 the Medical morning. Branch topiramate 2022-1 Yes [id number] 100mg Take 4 [facility] 25 mg 0-21 tablets by [facility] of tablet 00:00: mouth in [place] 00 the Medical morning. Branch topiramate 2021-05 Yes [id number] 100mg Take 4 [facility] 25 mg 0-21 tablets by [facility] of tablet 00:00: mouth in [place] 00 the Medical morning. Branch topiramate 2021-05 Yes [id number] 100mg Take 4 [facility] 25 mg 0-21 tablets by ity of tablet 00:00: mouth in [place] 00 the Medical morning. Branch topiramate 2021-05 Yes [id number] 100mg Take 4 [facility] 25 mg 0-21 tablets by [facility]y of tablet 00:00: mouth in [place] 00 the Medical morning. Branch diphenhydrA 2021-05- No 25mg Take 25 mg [facility] MINE 25 mg 0-18 10-18 by mouth ity of capsule 09:39: 00:00 every 6 [place] 59 :00 (six) Medical hours as Branch needed for Allergies. diphenhydrA 2021-05- No 25mg Take 25 mg [facility] MINE 25 mg 0-18 10-18 by mouth ity of capsule 09:39: 00:00 every 6 [place] 59 :00 (six) Medical hours as Branch needed for Allergies. diphenhydrA 2021-05 No 25mg Take 25 mg [facility] MINE 25 mg 0-18 10-18 by mouth ity of capsule 09:39: 00:00 every 6 [place] 59 :00 (six) Medical hours as Branch needed for Allergies. diphenhydrA 2021-05- No 25mg Take 25 mg [facility] MINE 25 mg 0-18 10-18 by mouth ity of capsule 09:39: 00:00 every 6 [place] 59 :00 (six) Medical hours as Branch needed for Allergies. diphenhydrA 2021-05- No 25mg Take 25 mg [facility] MINE 25 mg 0-18 10-18 by mouth ity of capsule 09:39: 00:00 every 6 [place] 59 :00 (six) Medical hours as Branch needed for Allergies. citalopram 2021-05- No Take by [facility] hydrobromid 0-18 10-18 mouth. ity o f e 09:39: 00:00 [place] (CITALOPRAM 49 :00 Medical ORAL) Branch citalopram [...] 28 :00 Medical Branch albuterol 2021-05 Yes [id number] 2{puff} Inhale 2 [facility] 90 0-18 Puffs ity of mcg/actuati 00:00: every 6 [place] as on inhaler 00 (six) Medical hours as Branch needed for Wheezing or Shortness of Breath. albuterol 2021-05 Yes [id number] 2{puff} Inhale 2 [facility] 90 0-18 Puffs ity of mcg/actuati 00:00: every 6 [place] as on inhaler 00 (six) Medical hours as Branch needed for Wheezing or Shortness of Breath. albuterol 2021-05 Yes [id number] 2{puff} Inhale 2 [facility] 90 0-18 Puffs ity of mcg/actuati 00:00: every 6 [place] as on inhaler 00 (six) Medical hours as Branch needed for Wheezing or Shortness of Breath. albuterol 2021-05 Yes [id number] 2{puff} Inhale 2 [facility] 90 0-18 Puffs ity of mcg/actuati 00:00: every 6 [place] as on inhaler 00 (six) Medical hours as Branch needed for Wheezing or Shortness of Breath. albuterol 2021-05 Yes [id number] 2{puff} Inhale 2 [facility] 90 0-18 Puffs ity of mcg/actuati 00:00: every 6 [place] as on inhaler 00 (six) Medical hours as Branch needed for Wheezing or Shortness of Breath. albuterol 2021-05 Yes [id number] 2{puff} Inhale 2 [facility] 90 0-18 Puffs ity of mcg/actuati 00:00: every 6 [place] as on inhaler 00 (six) Medical hours as Branch needed for Wheezing or Shortness of Breath. albuterol 2021-05 Yes [id number] 2{puff} Inhale 2 [facility] 90 0-18 Puffs ity of mcg/actuati 00:00: every 6 [place] as on inhaler 00 (six) Medical hours as Branch needed for Wheezing or Shortness of Breath. albuterol 2021-05 Yes [id number] 2{puff} Inhale 2 [facility] 90 0-18 Puffs ity of mcg/actuati 00:00: every 6 [place] as on inhaler 00 (six) Medical hours as Branch needed for Wheezing or Shortness of Breath. albuterol 2021-05 Yes [id number] 2{puff} Inhale 2 [facility] 90 0-18 Puffs ity of mcg/actuati 00:00: every 6 [place] as on inhaler 00 (six) Medical hours as Branch needed for Wheezing or Shortness of Breath. albuterol 2021-05 Yes [id number] 2{puff} Inhale 2 [facility] 90 0-18 Puffs ity of mcg/actuati 00:00: every 6 [place] as on inhaler 00 (six) Medical hours as Branch needed for Wheezing or Shortness of Breath. albuterol 2021-05 Yes [id number] 2{puff} Inhale 2 [facility] 90 0-18 Puffs ity of mcg/actuati 00:00: every 6 [place] as on inhaler 00 (six) Medical hours as Branch needed for Wheezing or Shortness of Breath. albuterol 2021-05 Yes [id number] 2{puff} Inhale 2 [facility] 90 0-18 Puffs ity of mcg/actuati 00:00: every 6 [place] as on inhaler 00 (six) Medical hours as Branch needed for Wheezing or Shortness of Breath. albuterol 2021-05 Yes [id number] 2{puff} Inhale 2 [facility] 90 0-18 Puffs ity of mcg/actuati 00:00: every 6 [place] as on inhaler 00 (six) Medical hours as Branch needed for Wheezing or Shortness of Breath. albuterol 2021-05 Yes [id number] 2{puff} Inhale 2 [facility] 90 0-18 Puffs ity of mcg/actuati 00:00: every 6 [place] as on inhaler 00 (six) Medical hours as Branch needed for Wheezing or Shortness of Breath. albuterol 2021-05 Yes [id number] 2{puff} Inhale 2 [facility] 90 0-18 Puffs ity of mcg/actuati 00:00: every 6 [place] as on inhaler 00 (six) Medical hours as Branch needed for Wheezing or Shortness of Breath. albuterol 2021-05 Yes [id number] 2{puff} Inhale 2 [facility] 90 0-18 Puffs ity of mcg/actuati 00:00: every 6 [place] as on inhaler 00 (six) Medical hours as Branch needed for Wheezing or Shortness of Breath. albuterol 2021-05 Yes [id number] 2{puff} Inhale 2 [facility] 90 0-18 Puffs ity of mcg/actuati 00:00: every 6 [place] as on inhaler 00 (six) Medical hours as Branch needed for Wheezing or Shortness of Breath. albuterol 2021-05 Yes [id number] 2{puff} Inhale 2 [facility] 90 0-18 Puffs ity of mcg/actuati 00:00: every 6 [place] as on inhaler 00 (six) Medical hours as Branch needed for Wheezing or Shortness of Breath. albuterol 2021-05 Yes [id number] 2{puff} Inhale 2 [facility] 90 0-18 Puffs ity of mcg/actuati 00:00: every 6 [place] as on inhaler 00 (six) Medical hours as Branch needed for Wheezing or Shortness of Breath. albuterol 2021-05 Yes [id number] 2{puff} Inhale 2 [facility] 90 0-18 Puffs ity of mcg/actuati 00:00: every 6 [place] as on inhaler 00 (six) Medical hours as Branch needed for Wheezing or Shortness of Breath. albuterol 2021-05 Yes [id number] 2{puff} Inhale 2 [facility] 90 0-18 Puffs ity of mcg/actuati 00:00: every 6 [place] as on inhaler 00 (six) Medical hours as Branch needed for Wheezing or Shortness of Breath. albuterol 2021-05 Yes [id number] 2{puff} Inhale 2 [facility] 90 0-18 Puffs ity of mcg/actuati 00:00: every 6 [place] as on inhaler 00 (six) Medical hours as Branch needed for Wheezing or Shortness of Breath. albuterol 2021-05 Yes [id number] 2{puff} Inhale 2 [facility] 90 0-18 Puffs ity of mcg/actuati 00:00: every 6 [place] as on inhaler 00 (six) Medical hours as Branch needed for Wheezing or Shortness of Breath. albuterol 2021-05 Yes [id number] 2{puff} Inhale 2 [facility] 90 0-18 Puffs ity of mcg/actuati 00:00: every 6 [place] as on inhaler 00 (six) Medical hours as Branch needed for Wheezing or Shortness of Breath. albuterol 2021-05 Yes [id number] 2{puff} Inhale 2 [facility] 90 0-18 Puffs ity of mcg/actuati 00:00: every 6 [place] as on inhaler 00 (six) Medical hours as Branch needed for Wheezing or Shortness of Breath. albuterol 2021-05 Yes [id number] 2{puff} Inhale 2 [facility] 90 0-18 Puffs ity of mcg/actuati 00:00: every 6 [place] as on inhaler 00 (six) Medical hours as Branch needed for Wheezing or Shortness of Breath. albuterol 2021-05 Yes [id number] 2{puff} Inhale 2 [facility] 90 0-18 Puffs ity of mcg/actuati 00:00: every 6 [place] as on inhaler 00 (six) Medical hours as Branch needed for Wheezing or Shortness of Breath. albuterol 2021-05 Yes [id number] 2{puff} Inhale 2 [facility] 90 0-18 Puffs ity of mcg/actuati 00:00: every 6 [place] as on inhaler 00 (six) Medical hours as Branch needed for Wheezing or Shortness of Breath. albuterol 2021-05 Yes [id number] 2{puff} Inhale 2 [facility] 90 0-18 Puffs ity of mcg/actuati 00:00: every 6 [place] as on inhaler 00 (six) Medical hours as Branch needed for Wheezing or Shortness of Breath. albuterol 2021-05 Yes [id number] 2{puff} Inhale 2 [facility] 90 0-18 Puffs ity of mcg/actuati 00:00: every 6 [place] as on inhaler 00 (six) Medical hours as Branch needed for Wheezing or Shortness of Breath. albuterol 2021-05 Yes [id number] 2{puff} Inhale 2 [facility] 90 0-18 Puffs ity of mcg/actuati 00:00: every 6 [place] as on inhaler 00 (six) Medical hours as Branch needed for Wheezing or Shortness of Breath. albuterol 2021-05 Yes [id number] 2{puff} Inhale 2 [facility] 90 0-18 Puffs ity of mcg/actuati 00:00: every 6 [place] as on inhaler 00 (six) Medical hours as Branch needed for Wheezing or Shortness of Breath. albuterol 2021-05 Yes [id number] 2{puff} Inhale 2 [facility] 90 0-18 Puffs ity of mcg/actuati 00:00: every 6 [place] as on inhaler 00 (six) Medical hours as Branch needed for Wheezing or Shortness of Breath. albuterol 2021-05 Yes [id number] 2{puff} Inhale 2 [facility] 90 0-18 Puffs ity of mcg/actuati 00:00: every 6 [place] as on inhaler 00 (six) Medical hours as Branch needed for Wheezing or Shortness of Breath. albuterol 2021-05 Yes [id number] 2{puff} Inhale 2 [facility] 90 0-18 Puffs ity of mcg/actuati 00:00: every 6 [place] as on inhaler 00 (six) Medical hours as Branch needed for Wheezing or Shortness of Breath. albuterol 2021-05 Yes [id number] 2{puff} Inhale 2 [facility] 90 0-18 Puffs ity of mcg/actuati 00:00: every 6 [place] as on inhaler 00 (six) Medical hours as Branch needed for Wheezing or Shortness of Breath. albuterol 2021-05 Yes [id number] 2{puff} Inhale 2 [facility] 90 0-18 Puffs ity of mcg/actuati 00:00: every 6 [place] as on inhaler 00 (six) Medical hours as Branch needed for Wheezing or Shortness of Breath. albuterol 2021-05 Yes [id number] 2{puff} Inhale 2 [facility] 90 0-18 Puffs ity of mcg/actuati 00:00: every 6 [place] as on inhaler 00 (six) Medical hours as Branch needed for Wheezing or Shortness of Breath. albuterol 2021-05 Yes [id number] 2{puff} Inhale 2 [facility] 90 0-18 Puffs ity of mcg/actuati 00:00: every 6 [place] as on inhaler 00 (six) Medical hours as Branch needed for Wheezing or Shortness of Breath. albuterol 2021-05 Yes [id number] 2{puff} Inhale 2 [facility] 90 0-18 Puffs ity of mcg/actuati 00:00: every 6 [place] as on inhaler 00 (six) Medical hours as Branch needed for Wheezing or Shortness of Breath. albuterol 2021-05 Yes [id number] 2{puff} Inhale 2 [facility] 90 0-18 Puffs ity of mcg/actuati 00:00: every 6 [place] as on inhaler 00 (six) Medical hours as Branch needed for Wheezing or Shortness of Breath. albuterol 2021-05 Yes [id number] 2{puff} Inhale 2 [facility] 90 0-18 Puffs ity of mcg/actuati 00:00: every 6 [place] as on inhaler 00 (six) Medical hours as Branch needed for Wheezing or Shortness of Breath. albuterol 2021-05 Yes [id number] 2{puff} Inhale 2 [facility] 90 0-18 Puffs ity of mcg/actuati 00:00: every 6 [place] as on inhaler 00 (six) Medical hours as Branch needed for Wheezing or Shortness of Breath. albuterol 2021-05 Yes [id number] 2{puff} Inhale 2 [facility] 90 0-18 Puffs ity of mcg/actuati 00:00: every 6 [place] as on inhaler 00 (six) Medical hours as Branch needed for Wheezing or Shortness of Breath. albuterol 2021-05 Yes [id number] 2{puff} Inhale 2 [facility] 90 0-18 Puffs ity of mcg/actuati 00:00: every 6 [place] as on inhaler 00 (six) Medical hours as Branch needed for Wheezing or Shortness of Breath. albuterol 2021-05 Yes [id number] 2{puff} Inhale 2 [facility] 90 0-18 Puffs ity of mcg/actuati 00:00: every 6 [place] as on inhaler 00 (six) Medical hours as Branch needed for Wheezing or Shortness of Breath. albuterol 2021-05 Yes [id number] 2{puff} Inhale 2 [facility] 90 0-18 Puffs ity of mcg/actuati 00:00: every 6 [place] as on inhaler 00 (six) Medical hours as Branch needed for Wheezing or Shortness of Breath. albuterol 2021-05 Yes [id number] 2{puff} Inhale 2 [facility] 90 0-18 Puffs ity of mcg/actuati 00:00: every 6 [place] as on inhaler 00 (six) Medical hours as Branch needed for Wheezing or Shortness of Breath. albuterol 2021-05 Yes [id number] 2{puff} Inhale 2 [facility] 90 0-18 Puffs ity of mcg/actuati 00:00: every 6 [place] as on inhaler 00 (six) Medical hours as Branch needed for Wheezing or Shortness of Breath. albuterol 2021-05 Yes [id number] 2{puff} Inhale 2 [facility] 90 0-18 Puffs ity of mcg/actuati 00:00: every 6 [place] as on inhaler 00 (six) Medical hours as Branch needed for Wheezing or Shortness of Breath. albuterol 2021-05 Yes [id number] 2{puff} Inhale 2 [facility] 90 0-18 Puffs ity of mcg/actuati 00:00: every 6 [place] as on inhaler 00 (six) Medical hours as Branch needed for Wheezing or Shortness of Breath. albuterol 2021-05 Yes [id number] 2{puff} Inhale 2 [facility] 90 0-18 Puffs ity of mcg/actuati 00:00: every 6 [place] as on inhaler 00 (six) Medical hours as Branch needed for Wheezing or Shortness of Breath. albuterol 2021-05 Yes [id number] 2{puff} Inhale 2 [facility] 90 0-18 Puffs ity of mcg/actuati 00:00: every 6 [place] as on inhaler 00 (six) Medical hours as Branch needed for Wheezing or Shortness of Breath. albuterol 2021-05 Yes [id number] 2{puff} Inhale 2 [facility] 90 0-18 Puffs ity of mcg/actuati 00:00: every 6 [place] as on inhaler 00 (six) Medical hours as Branch needed for Wheezing or Shortness of Breath. SUMAtriptan 2021-05- No 50mg Take 50 mg [facility] 50 mg 0-18 11-09 by mouth ity of tablet 00:00: 00:00 as needed [place] 00 :00 for Medical Migraine. Branch Take one tablet at onset of migraine, may take another tablet 2 hours after initial dose if no relief with first dose. DO NOT EXCEED 100mg in a 24 hour period. benzonatate 2021-05- No [id number] 200mg Take 1 [facility] 200 mg 0-18 10-26 capsule by ity of capsule 00:00: 04:59 mouth 3 [place] 00 :00 (three) Medical times Branch daily as needed for Cough for up to 7 days. benzonatate 2021-05- No [id number] 200mg Take 1 [facility] 200 mg 0-18 10-26 capsule by ity of capsule 00:00: 04:59 mouth 3 [place] 00 :00 (three) Medical times Branch daily as needed for Cough for up to 7 days. benzonatate 2021-05- No [id number] 200mg Take 1 [facility] 200 mg 0-18 10-26 capsule by ity of capsule 00:00: 04:59 mouth 3 [place] 00 :00 (three) Medical times Branch daily as needed for Cough for up to 7 days. benzonatate 2021-05- No [id number] 200mg Take 1 [facility] 200 mg 0-18 10-26 capsule by ity of capsule 00:00: 04:59 mouth 3 [place] 00 :00 (three) Medical times Branch daily as needed for Cough for up to 7 days. benzonatate 2021-05 No [id number] 200mg Take 1 [facility] 200 mg 003-07 capsule by ity of capsule 00:00: 04:59 mouth 3 [place] 00 :00 (three) Medical times [place] daily as needed for Cough for up to 7 days. benzonatate 2021-05 No [id number] 200mg Take 1 [facility] 200 mg 003-07 capsule by ity of capsule 00:00: 04:59 mouth 3 [place] 00 :00 (three) Medical times [place] daily as needed for Cough for up to 7 days. SUMAtriptan 2021-05- No [id number] 50mg Take 1 [facility] 50 mg 002-28 9105 tablet by ity of tablet 00:00: 04:59 mouth [place] 00 :[place] now for 1 Medical dose. [place] SUMAtriptan 2021-05 No [id number] 50mg Take 1 [facility] 50 mg 02-28 [id number] tablet by ity of tablet 00:00: [...] 2021-05 No 12.5mg 12.5 mg, Univers e 002-21 [...] On Branch Sat02/21/22 at 0130, [place] diphenhydrA 2021-05 No 25mg 25 mg, Uni vers MINE 02-21 Slow IV ity of (BENADRYL) 06:30: 06:38 [place], [place] injection 00 :00 ONCE, 1 Medical 25 mg dose, On Branch Sat02/21/22 at 0130, STAT FENTanyl PF 2021-05 No 50ug 50 mcg, Un sushant (SUBLIMAZE 002-18 Slow IV ity o f (PF)) 20:30: 19:44 [place], [place] injection 00 :00 ONCE, 1 Medical 50 mcg dose, On Branch 02/18/22 at 1530, Routine ketorolac 2021-05- No 30mg 30 mg, Unive rs (TORADOL) 0- Slow IV ity of injection 20:15: 20:09 Push, [place] 30 mg 00 :00 ONCE, 1 Medical dose, On Branch 02/18/22 at 1515, [place] iopamidol 2021-05- No [id number] 60mL 60 mL, Un sushant (ISOVUE 0- Intravenou ity o f 370-500 mL) 19:30: 17:30 s, ONCE, 1 [place] injection 00 :00 dose, On Medica l 60 mL [facility] 02/18/22 at 1430, Routine proMETHazin 2021-05 No 12.5mg 12.5 mg, Univers e 02-18 IV ity of (PHENERGAN) 18:15: 18:19 Piggyback, [place] 12.5 mg in 00 :00 ONCE, 1 Medica l NaCl 0.9% dose, On Branch (NS) 50 mL [place] IV 02/18/22 at piggyback 1315, [place] FENTanyl PF 2021-05 No 50ug 50 mcg, Un sushant (SUBLIMAZE 02-18 Slow IV ity o f (PF)) 18:00: 17:26 Push, [place] injection 00 :00 ONCE, 1 Medical 50 mcg dose, On Branch [place] 02/18/22 at 1300, Routine ondansetron 2021-05 No 4mg 4 mg, Slow [facility] (ZOFRAN 02-18 IV [place], ity of (PF)) 17:15: 17:27 ONCE, 1 [place] injection 4 00 :00 dose, On Medi yessi mg [facility] 02/18/22 at 1215, [place] morpHINE [...] 00 :00 dose, On Medi yessi mg [facility] 01/18/22 Branch at 0830, [place] morpHINE [...] Branch at 0630, [place] iodixanoL 2021- No [id number] 80mL 80 mL, U nivers (VISIPAQUE 01-18 Intravenou it y of 270-150 mL) 11:21: 11:15 s, ONCE, 1 [place] injection 00 :00 dose, On Medica l 80 mL [facility] 01/18/22 Branch at 0630, Routine NaCl [...] Indication s: acute pain ondansetron 2022-0 Yes [id number] 4mg Take 1 [facility] 4 mg 9-08 [id number] tablet by ity of disintegrat 00:00: mouth [place] ing tablet 00 every 8 Medica l (eight) Branch hours as needed for Nausea and Vomiting (N/V). ibuprofen 2021-0 Yes [id number] 600mg Take 1 [facility] 600 mg 9-08 [id number] tablet by ity of tablet 00:00: mouth [place] 00 every 6 Medical (six) Branch hours as needed for Pain (scale 4-6). traMADoL 50 2021-0 Yes [id number] 50mg Take 1 Univ ers mg tablet 9-08 tablet by ity o f 00:00: mouth [place] 00 every 6 Medical (six) Branch hours as needed for Pain (scale 7-10). Indication s: acute pain ondansetron 2021-0 Yes [id number] 4mg Take 1 [facility] 4 mg 9-08 [id number] tablet by ity of disintegrat 00:00: mouth [place] ing tablet 00 every 8 Medica l (eight) Branch hours as needed for Nausea and Vomiting (N/V). ibuprofen 2021-0 Yes [id number] 600mg Take 1 [facility] 600 mg 9-08 [id number] tablet by ity of tablet 00:00: mouth [place] 00 every 6 Medical (six) Branch hours as needed for Pain (scale 4-6). traMADoL 50 2021-0 Yes [id number] 50mg Take 1 Univ ers mg tablet 9-08 tablet by ity o f 00:00: mouth [place] 00 every 6 Medical (six) Branch hours as needed for Pain (scale 7-10). Indication s: acute pain ondansetron 2021-0 Yes [id number] 4mg Take 1 [facility] 4 mg 9-08 [id number] tablet by ity of disintegrat 00:00: mouth [place] ing tablet 00 every 8 Medica l (eight) Branch hours as needed for Nausea and Vomiting (N/V). ibuprofen 2021-0 Yes [id number] 600mg Take 1 [facility] 600 mg 9-08 [id number] tablet by ity of tablet 00:00: mouth [place] 00 every 6 Medical (six) Branch hours as needed for Pain (scale 4-6). traMADoL 50 2021-0 Yes [id number] 50mg Take 1 Univ ers mg tablet 9-08 tablet by ity o f 00:00: mouth [place] 00 every 6 Medical (six) Branch hours as needed for Pain (scale 7-10). Indication s: acute pain ondansetron 2022-0 Yes [id number] 4mg Take 1 [facility] 4 mg 9-08 [id number] tablet by ity of disintegrat 00:00: mouth [place] ing tablet 00 every 8 Medica l (eight) Branch hours as needed for Nausea and Vomiting (N/V). ibuprofen 2022-0 Yes [id number] 600mg Take 1 [facility] 600 mg 9-08 [id number] tablet by ity of tablet 00:00: mouth [place] 00 every 6 Medical (six) Branch hours as needed for Pain (scale 4-6). traMADoL 50 2022-0 Yes [id number] 50mg Take 1 Univ ers mg tablet 9-08 tablet by ity o f 00:00: mouth [place] 00 every 6 Medical (six) Branch hours as needed for Pain (scale 7-10). Indication s: acute pain ondansetron 2022-0 Yes [id number] 4mg Take 1 [facility] 4 mg 9-08 [id number] tablet by ity of disintegrat 00:00: mouth [place] ing tablet 00 every 8 Medica l (eight) Branch hours as needed for Nausea and Vomiting (N/V). ibuprofen 2022-0 Yes [id number] 600mg Take 1 [facility] 600 mg 9-08 [id number] tablet by ity of tablet 00:00: mouth [place] 00 every 6 Medical (six) Branch hours as needed for Pain (scale 4-6). traMADoL 50 2022-0 Yes [id number] 50mg Take 1 Univ ers mg tablet 9-08 tablet by ity o f 00:00: mouth [place] 00 every 6 Medical (six) Branch hours as needed for Pain (scale 7-10). Indication s: acute pain ondansetron 2022-0 Yes [id number] 4mg Take 1 [facility] 4 mg 9-08 [id number] tablet by ity of disintegrat 00:00: mouth [place] ing tablet 00 every 8 Medica l (eight) Branch hours as needed for Nausea and Vomiting (N/V). ibuprofen 2022-0 Yes [id number] 600mg Take 1 [facility] 600 mg 9-08 [id number] tablet by ity of tablet 00:00: mouth [place] 00 every 6 Medical (six) Branch hours as needed for Pain (scale 4-6). traMADoL 50 2022-0 Yes [id number] 50mg Take 1 Univ ers mg tablet 9-08 tablet by ity o f 00:00: mouth [place] 00 every 6 Medical (six) Branch hours as needed for Pain (scale 7-10). Indication s: acute pain ondansetron 2021-0 Yes [id number] 4mg Take 1 [facility] 4 mg - [id number] tablet by ity of disintegrat 00:00: mouth [place] ing tablet 00 every 8 Medica l (eight) Branch hours as needed for Nausea and Vomiting (N/V). ibuprofen 2021-0 Yes [id number] 600mg Take 1 [facility] 600 mg 9- 716750 tablet by ity of tablet 00:00: mouth [place] 00 every 6 Medical (six) Branch hours as needed for Pain (scale 4-6). traMADoL 50 2021-0 Yes [id number] 50mg Take 1 Univ ers mg tablet 9-08 tablet by ity o f 00:00: mouth [place] 00 every 6 Medical (six) Branch hours as needed for Pain (scale 7-10). Indication s: acute pain ondansetron 2021-0 Yes [id number] 4mg Take 1 [facility] 4 mg - [id number] tablet by ity of disintegrat 00:00: mouth [place] ing tablet 00 every 8 Medica l (eight) Branch hours as needed for Nausea and Vomiting (N/V). ibuprofen 2021-0 Yes [id number] 600mg Take 1 [facility] 600 mg - [id number] tablet by ity of tablet 00:00: mouth [place] 00 every 6 Medical (six) Branch hours as needed for Pain (scale 4-6). traMADoL 50 2021-0 2021- No [id number] 50mg Take 1 Uni vers mg tablet 01-1818 tablet by ity of 00:00: 00:00 mouth [place] 00 :00 every 6 Medical (six) Branch hours as needed for Pain (scale 7-10). Indication s: acute pain ondansetron 2021-0 202- No [id number] 4mg Take 1 [facility] 4 mg -02-27 [id number] tablet by ity of disintegrat 00:00: 00:00 mouth [place] ing tablet 00 :00 every 8 Medica l (eight) Branch hours as needed for Nausea and Vomiting (N/V). ibuprofen 2021-0 2021- No [id number] 600mg Take 1 [facility] 600 mg 9-08 10-18 [id number] tablet by ity o f tablet 00:00: [...] Indication s: acute pain ondansetron 2021-2021- No [id number] 4mg Take 1 [facility] 4 mg 01-18 [id number] tablet by ity of disintegrat 00:00: 00:00 mouth [place] ing tablet 00 :00 every 8 Medica l (eight) Branch hours as needed for Nausea and Vomiting (N/V). ibuprofen 2021-2021- No [id number] 600mg Take 1 [facility] 600 mg 01-18 [id number] tablet by ity o f tablet 00:00: [...] Indication s: acute pain ondansetron 2021-2021- No [id number] 4mg Take 1 [facility] 4 mg 01-18 [id number] tablet by ity of disintegrat 00:00: 00:00 mouth [place] ing tablet 00 :00 every 8 Medica l (eight) Branch hours as needed for Nausea and Vomiting (N/V). ibuprofen 2021-2021- No [id number] 600mg Take 1 [facility] 600 mg 01-18 [id number] tablet by ity o f tablet 00:00: [...] Indication s: acute pain ondansetron 2021- No [id number] 4mg Take 1 [facility] 4 mg 01-18 [id number] tablet by ity of disintegrat 00:00: 00:00 mouth [place] ing tablet 00 :00 every 8 Medica l (eight) Branch hours as needed for Nausea and Vomiting (N/V). ibuprofen 2021- No [id number] 600mg Take 1 [facility] 600 mg 01-18 [id number] tablet by ity o f tablet 00:00: 00:00 mouth [place] 00 :00 every 6 Medical (six) Branch hours as needed for Pain (scale 4-6). predniSONE 2021- No [id number] 40mg Take 2 [facility] 20 mg 01-16 tablets by ity of tablet 00:00: 04:59 mouth in [place] 00 :00 the Medical morning Branch for 7 days. predniSONE 2021- No [id number] 40mg Take 2 [facility] 20 mg 01-16 tablets by ity of tablet 00:00: 04:59 mouth in [place] 00 :00 the Medical morning Branch for [...] at 0915, 1 mL proMETHazin 2021-0 Yes [id number] 25mg Take 1 Univers e 25 mg 9-05 tablet by ity of tablet 00:00: mouth [place] 00 every 6 Medical (six) Branch hours as needed for Nausea and Vomiting (N/V). proMETHazin 2021-0 Yes [id number] 25mg Take 1 Univers e 25 mg 9-05 tablet by ity of tablet 00:00: mouth [place] 00 every 6 Medical (six) Branch hours as needed for Nausea and Vomiting (N/V). proMETHazin 2021-0 Yes [id number] 25mg Take 1 Univers e 25 mg 9-05 tablet by ity of tablet 00:00: mouth [place] 00 every 6 Medical (six) Branch hours as needed for Nausea and Vomiting (N/V). proMETHazin 2022-0 Yes [id number] 25mg Take 1 Univers e 25 mg 9-05 tablet by ity of tablet 00:00: mouth [place] 00 every 6 Medical (six) Branch hours as needed for Nausea and Vomiting (N/V). proMETHazin 2-0 Yes [id number] 25mg Take 1 Univers e 25 mg 9-05 tablet by ity of tablet 00:00: mouth [place] 00 every 6 Medical (six) Branch hours as needed for Nausea and Vomiting (N/V). proMETHazin 0 Yes [id number] 25mg Take 1 Univers e 25 mg 9-05 tablet by ity of tablet 00:00: mouth [place] 00 every 6 Medical (six) Branch hours as needed for Nausea and Vomiting (N/V). proMETHazin 0 Yes [id number] 25mg Take 1 Univers e 25 mg 9-05 tablet by ity of tablet 00:00: mouth [place] 00 every 6 Medical (six) Branch hours as needed for Nausea and Vomiting (N/V). proMETHazin 0 Yes [id number] 25mg Take 1 Univers e 25 mg 9-05 tablet by ity of tablet 00:00: mouth [place] 00 every 6 Medical (six) Branch hours as needed for Nausea and Vomiting (N/V). proMETHazin 0 Yes [id number] 25mg Take 1 Univers e 25 mg 9-05 tablet by ity of tablet 00:00: mouth [place] 00 every 6 Medical (six) Branch hours as needed for Nausea and Vomiting (N/V). proMETHazin 2021- No [id number] 25mg Take 1 Univers e 25 mg 9-05 10-18 tablet by ity of tablet 00:00: 00:00 mouth [place] 00 :00 every 6 Medical (six) Branch hours as needed for Nausea and Vomiting (N/V). proMETHazin 0 2021- No [id number] 25mg Take 1 Univers e 25 mg 9-05 10-18 tablet by ity of tablet 00:00: 00:00 mouth [place] 00 :00 every 6 Medical (six) Branch hours as needed for Nausea and Vomiting (N/V). proMETHazin 0 2021- No [id number] 25mg Take 1 Univers e 25 mg 9-05 10-18 tablet by ity of tablet 00:00: 00:00 mouth [place] 00 :00 every 6 Medical (six) Branch hours as needed for Nausea and Vomiting (N/V). proMETHazin 2021-0 2021- No [id number] 25mg Take 1 Univers e 25 mg [...] IV ity of (BENADRYL) 23:45: 23:51 [place], [place] injection 00 :00 ONCE, 1 Medical 25 mg dose, On Branch [facility] 01/08/22 at 1845, STAT dexamethaso 2021- No 10mg 10 mg, Uni vers ne sod phos 01-08 Slow IV ity of PF 23:45: 23:50 [place], [place] injection 00 :00 ONCE, 1 Medical 10 mg dose, On Branch [facility] 01/08/22 at 1845, 1 mL ketorolac 2021- No 30mg 30 mg, Unive rs (TORADOL) 01-08 Slow IV ity of injection 23:45: 23:51 Push, [place] 30 mg 00 :00 ONCE, 1 Medical dose, On Branch [facility] 01/08/22 at 1845, [place] ondansetron Yes [id number] 4mg Take 1 [facility] 4 mg 8-29 tablet by ity of disintegrat 00:00: mouth [place] ing tablet 00 every 8 Medica l (eight) Branch hours as needed for Nausea and Vomiting (N/V). acetaminoph 0 Yes [id number] 650mg Take 1 Univers en (TYLENOL 8-29 tablet by ity of ARTHRITIS 00:00: mouth [place] PAIN) 650 00 every 8 Medical mg CR (eight) Branch tablet hours as needed for Pain. ketorolac 0 Yes [id number] 10mg Take 1 U nivers 10 mg 8-29 tablet by ity of tablet 00:00: mouth [place] 00 every 6 Medical (six) Branch hours as needed for Pain (scale 4-6) or Pain (scale 7-10). metaxalone 2022-0 Yes [id number] 800mg Take 1 Univers (SKELAXIN) 8-29 tablet by ity of 800 mg 00:00: mouth in [place] tablet 00 the Medical morning Branch and 1 tablet at noon and 1 tablet in the evening. ondansetron 2022-0 Yes [id number] 4mg Take 1 [facility] 4 mg 8-29 tablet by ity of disintegrat 00:00: mouth [place] ing tablet 00 every 8 Medica l (eight) Branch hours as needed for Nausea and Vomiting (N/V). acetaminoph 2022-0 Yes [id number] 650mg Take 1 Univers en (TYLENOL 8-29 tablet by ity of ARTHRITIS 00:00: mouth [place] PAIN) 650 00 every 8 Medical mg CR (eight) Branch tablet hours as needed for Pain. ketorolac 2022-0 Yes [id number] 10mg Take 1 U nivers 10 mg 8-29 tablet by ity of tablet 00:00: mouth [place] 00 every 6 Medical (six) Branch hours as needed for Pain (scale 4-6) or Pain (scale 7-10). metaxalone 2022-0 Yes [id number] 800mg Take 1 Univers (SKELAXIN) 8-29 tablet by ity of 800 mg 00:00: mouth in [place] tablet 00 the Medical morning Branch and 1 tablet at noon and 1 tablet in the evening. ondansetron 2022-0 Yes [id number] 4mg Take 1 [facility] 4 mg 8-29 tablet by ity of disintegrat 00:00: mouth [place] ing tablet 00 every 8 Medica l (eight) Branch hours as needed for Nausea and Vomiting (N/V). acetaminoph 2022-0 Yes [id number] 650mg Take 1 [facility] en (TYLENOL 8-29 tablet by ity of ARTHRITIS 00:00: mouth [place] PAIN) 650 00 every 8 Medical mg CR (eight) Branch tablet hours as needed for Pain. ketorolac 2022-0 Yes [id number] 10mg Take 1 U nivers 10 mg 8-29 tablet by ity of tablet 00:00: mouth [place] 00 every 6 Medical (six) Branch hours as needed for Pain (scale 4-6) or Pain (scale 7-10). metaxalone 2022-0 Yes [id number] 800mg Take 1 Univers (SKELAXIN) 8-29 tablet by ity of 800 mg 00:00: mouth in [place] tablet 00 the Medical morning Branch and 1 tablet at noon and 1 tablet in the evening. ondansetron 2022-0 Yes [id number] 4mg Take 1 [facility] 4 mg 8-29 tablet by ity of disintegrat 00:00: mouth [place] ing tablet 00 every 8 Medica l (eight) Branch hours as needed for Nausea and Vomiting (N/V). acetaminoph 2022-0 Yes [id number] 650mg Take 1 [facility] en (TYLENOL 8-29 tablet by ity of ARTHRITIS 00:00: mouth [place] PAIN) 650 00 every 8 Medical mg CR (eight) Branch tablet hours as needed for Pain. ketorolac 2022-0 Yes [id number] 10mg Take 1 U nivers 10 mg 8-29 tablet by ity of tablet 00:00: mouth [place] 00 every 6 Medical (six) Branch hours as needed for Pain (scale 4-6) or Pain (scale 7-10). metaxalone 2022-0 Yes [id number] 800mg Take 1 Univers (SKELAXIN) 8-29 tablet by ity of 800 mg 00:00: mouth in [place] tablet 00 the Medical morning Branch and 1 tablet at noon and 1 tablet in the evening. ondansetron 2022-0 Yes [id number] 4mg Take 1 [facility] 4 mg 8-29 tablet by ity of disintegrat 00:00: mouth [place] ing tablet 00 every 8 Medica l (eight) Branch hours as needed for Nausea and Vomiting (N/V). acetaminoph 2022-0 Yes [id number] 650mg Take 1 [facility] en (TYLENOL 8-29 tablet by ity of ARTHRITIS 00:00: mouth [place] PAIN) 650 00 every 8 Medical mg CR (eight) Branch tablet hours as needed for Pain. ketorolac 2022-0 Yes [id number] 10mg Take 1 U nivers 10 mg 8-29 tablet by ity of tablet 00:00: mouth [place] 00 every 6 Medical (six) Branch hours as needed for Pain (scale 4-6) or Pain (scale 7-10). metaxalone 2022-0 Yes [id number] 800mg Take 1 Univers (SKELAXIN) 8-29 tablet by ity of 800 mg 00:00: mouth in [place] tablet 00 the Medical morning Branch and 1 tablet at noon and 1 tablet in the evening. ondansetron 2022-0 Yes [id number] 4mg Take 1 [facility] 4 mg 8-29 tablet by ity of disintegrat 00:00: mouth [place] ing tablet 00 every 8 Medica l (eight) Branch hours as needed for Nausea and Vomiting (N/V). acetaminoph 2022-0 Yes [id number] 650mg Take 1 [facility] en (TYLENOL 8-29 tablet by ity of ARTHRITIS 00:00: mouth [place] PAIN) 650 00 every 8 Medical mg CR (eight) Branch tablet hours as needed for Pain. ketorolac 2022-0 Yes [id number] 10mg Take 1 U nivers 10 mg 8-29 tablet by ity of tablet 00:00: mouth [place] 00 every 6 Medical (six) Branch hours as needed for Pain (scale 4-6) or Pain (scale 7-10). metaxalone 2021-0 Yes [id number] 800mg Take 1 Univers (SKELAXIN) 8-29 tablet by ity of 800 mg 00:00: mouth in [place] tablet 00 the Medical morning Branch and 1 tablet at noon and 1 tablet in the evening. ondansetron 2021-0 Yes [id number] 4mg Take 1 [facility] 4 mg 8-29 tablet by ity of disintegrat 00:00: mouth [place] ing tablet 00 every 8 Medica l (eight) Branch hours as needed for Nausea and Vomiting (N/V). acetaminoph 2-0 Yes [id number] 650mg Take 1 [facility] en (TYLENOL 8-29 tablet by ity of ARTHRITIS 00:00: mouth [place] PAIN) 650 00 every 8 Medical mg CR (eight) Branch tablet hours as needed for Pain. ketorolac 2022-0 Yes [id number] 10mg Take 1 U nivers 10 mg 8-29 tablet by ity of tablet 00:00: mouth [place] 00 every 6 Medical (six) Branch hours as needed for Pain (scale 4-6) or Pain (scale 7-10). metaxalone 2022-0 Yes [id number] 800mg Take 1 Univers (SKELAXIN) 8-29 tablet by ity of 800 mg 00:00: mouth in [place] tablet 00 the Medical morning Branch and 1 tablet at noon and 1 tablet in the evening. ondansetron 2022-0 Yes [id number] 4mg Take 1 Univers 4 mg 8-29 tablet by ity of disintegrat 00:00: mouth [place] ing tablet 00 every 8 Medica l (eight) Branch hours as needed for Nausea and Vomiting (N/V). acetaminoph 2022-0 Yes [id number] 650mg Take 1 [facility] en (TYLENOL 8-29 tablet by ity of ARTHRITIS 00:00: mouth [place] PAIN) 650 00 every 8 Medical mg CR (eight) Branch tablet hours as needed for Pain. ketorolac 2022-0 Yes [id number] 10mg Take 1 U nivers 10 mg 8-29 tablet by ity of tablet 00:00: mouth [place] 00 every 6 Medical (six) Branch hours as needed for Pain (scale 4-6) or Pain (scale 7-10). metaxalone 2022-0 Yes [id number] 800mg Take 1 Univers (SKELAXIN) 8-29 tablet by ity of 800 mg 00:00: mouth in [place] tablet 00 the Medical morning Branch and 1 tablet at noon and 1 tablet in the evening. ondansetron 2-0 Yes [id number] 4mg Take 1 Univers 4 mg 8-29 tablet by ity of disintegrat 00:00: mouth [place] ing tablet 00 every 8 Medica l (eight) Branch hours as needed for Nausea and Vomiting (N/V). acetaminoph 2-0 Yes [id number] 650mg Take 1 [facility] en (TYLENOL 8-29 tablet by ity of ARTHRITIS 00:00: mouth [place] PAIN) 650 00 every 8 Medical mg CR (eight) Branch tablet hours as needed for Pain. ketorolac 2022-0 Yes [id number] 10mg Take 1 U nivers 10 mg 8-29 tablet by ity of tablet 00:00: mouth [place] 00 every 6 Medical (six) Branch hours as needed for Pain (scale 4-6) or Pain (scale 7-10). metaxalone 2022-0 Yes [id number] 800mg Take 1 Univers (SKELAXIN) 8-29 tablet by ity of 800 mg 00:00: mouth in [place] tablet 00 the Medical morning Branch and 1 tablet at noon and 1 tablet in the evening. ondansetron 2021-0 Yes [id number] 4mg Take 1 Univers 4 mg 8-29 tablet by ity of disintegrat 00:00: mouth [place] ing tablet 00 every 8 Medica l (eight) Branch hours as needed for Nausea and Vomiting (N/V). acetaminoph 2021-0 Yes [id number] 650mg Take 1 Univers en (TYLENOL 8-29 tablet by ity of ARTHRITIS 00:00: mouth [place] PAIN) 650 00 every 8 Medical mg CR (eight) Branch tablet hours as needed for Pain. ketorolac 2021-0 Yes [id number] 10mg Take 1 U nivers 10 mg 8-29 tablet by ity of tablet 00:00: mouth [place] 00 every 6 Medical (six) Branch hours as needed for Pain (scale 4-6) or Pain (scale 7-10). metaxalone 2021-0 Yes [id number] 800mg Take 1 Univers (SKELAXIN) 8-29 tablet by ity of 800 mg 00:00: mouth in [place] tablet 00 the Medical morning Branch and 1 tablet at noon and 1 tablet in the evening. acetaminoph 2021-0 Yes [id number] 650mg Take 1 Univers en (TYLENOL 8-29 tablet by ity of ARTHRITIS 00:00: mouth [place] PAIN) 650 00 every 8 Medical mg CR (eight) Branch tablet hours as needed for Pain. acetaminoph 2021-0 Yes [id number] 650mg Take 1 Univers en (TYLENOL 8-29 tablet by ity of ARTHRITIS 00:00: mouth [place] PAIN) 650 00 every 8 Medical mg CR (eight) Branch tablet hours as needed for Pain. acetaminoph 2021-0 Yes [id number] 650mg Take 1 Univers en (TYLENOL 8-29 tablet by ity of ARTHRITIS 00:00: mouth [place] PAIN) 650 00 every 8 Medical mg CR (eight) Branch tablet hours as needed for Pain. acetaminoph 2021-0 Yes [id number] 650mg Take 1 Univers en (TYLENOL 8-29 tablet by ity of ARTHRITIS 00:00: mouth [place] PAIN) 650 00 every 8 Medical mg CR (eight) Branch tablet hours as needed for Pain. acetaminoph 2021-0 Yes [id number] 650mg Take 1 Univers en (TYLENOL 8-29 tablet by ity of ARTHRITIS 00:00: mouth [place] PAIN) 650 00 every 8 Medical mg CR (eight) Branch tablet hours as needed for Pain. acetaminoph 0 Yes [id number] 650mg Take 1 Univers en (TYLENOL 8-29 tablet by ity of ARTHRITIS 00:00: mouth [place] PAIN) 650 00 every 8 Medical mg CR (eight) Branch tablet hours as needed for Pain. acetaminoph 0 Yes [id number] 650mg Take 1 [facility] en (TYLENOL 8-29 tablet by ity of ARTHRITIS 00:00: mouth [place] PAIN) 650 00 every 8 Medical mg CR (eight) Branch tablet hours as needed for Pain. acetaminoph 0 Yes [id number] 650mg Take 1 [facility] en (TYLENOL 8-29 tablet by ity of ARTHRITIS 00:00: mouth [place] PAIN) 650 00 every 8 Medical mg CR (eight) Branch tablet hours as needed for Pain. acetaminoph 0 Yes [id number] 650mg Take 1 Univers en (TYLENOL 8-29 tablet by ity of ARTHRITIS 00:00: mouth [place] PAIN) 650 00 every 8 Medical mg CR (eight) Branch tablet hours as needed for Pain. acetaminoph 0 Yes [id number] 650mg Take 1 [facility] en (TYLENOL 8-29 tablet by ity of ARTHRITIS 00:00: mouth [place] PAIN) 650 00 every 8 Medical mg CR (eight) Branch tablet hours as needed for Pain. acetaminoph 0 Yes [id number] 650mg Take 1 [facility] en (TYLENOL 8-29 tablet by ity of ARTHRITIS 00:00: mouth [place] PAIN) 650 00 every 8 Medical mg CR (eight) Branch tablet hours as needed for Pain. acetaminoph 0 Yes [id number] 650mg Take 1 [facility] en (TYLENOL 8-29 tablet by ity of ARTHRITIS 00:00: mouth [place] PAIN) 650 00 every 8 Medical mg CR (eight) Branch tablet hours as needed for Pain. acetaminoph 0 Yes [id number] 650mg Take 1 [facility] en (TYLENOL 8-29 tablet by ity of ARTHRITIS 00:00: mouth [place] PAIN) 650 00 every 8 Medical mg CR (eight) Branch tablet hours as needed for Pain. acetaminoph 0 Yes [id number] 650mg Take 1 [facility] en (TYLENOL 8-29 tablet by ity of ARTHRITIS 00:00: mouth [place] PAIN) 650 00 every 8 Medical mg CR (eight) Branch tablet hours as needed for Pain. acetaminoph Yes [id number] 650mg Take 1 [facility] en (TYLENOL 8-29 tablet by ity of ARTHRITIS 00:00: mouth [place] PAIN) 650 00 every 8 Medical mg CR (eight) Branch tablet hours as needed for Pain. acetaminoph Yes [id number] 650mg Take 1 [facility] en (TYLENOL 8-29 tablet by ity of ARTHRITIS 00:00: mouth [place] PAIN) 650 00 every 8 Medical mg CR (eight) Branch tablet hours as needed for Pain. acetaminoph Yes [id number] 650mg Take 1 [facility] en (TYLENOL 8-29 tablet by ity of ARTHRITIS 00:00: mouth [place] PAIN) 650 00 every 8 Medical mg CR (eight) Branch tablet hours as needed for Pain. acetaminoph 2021- No [id number] 650mg Take 1 [facility] en (TYLENOL 8-29 11-26 tablet by it y of ARTHRITIS 00:00: 00:00 mouth [place] PAIN) 650 00 :00 every 8 Medical mg CR (eight) Branch tablet hours as needed for Pain. ondansetron 2021- No [id number] 4mg Take 1 [facility] 4 mg 8-29 10-18 tablet by ity of disintegrat 00:00: 00:00 [place] tablet 00 :00 every 8 Medica l (eight) Branch hours as needed for Nausea and Vomiting (N/V). ketorolac 2021- No [id number] 10mg Take 1 [facility] 10 mg 8-29 10-18 tablet by ity of tablet 00:00: 00:00 mouth [place] 00 :00 every 6 Medical (six) Branch hours as needed for Pain (scale 4-6) or Pain (scale 7-10). metaxalone 2021- No [id number] 800mg Take 1 [facility] (SKELAXIN) 8-29 10-18 tablet by ity of 800 mg 00:00: 00:00 mouth in [place] tablet 00 :00 the Medical morning Branch and 1 tablet at noon and 1 tablet in the evening. ondansetron 2- No [id number] 4mg Take 1 [facility] 4 mg 8-29 10-18 tablet by ity of disintegrat 00:00: 00:00 [place] tablet 00 :00 every 8 Medica l (eight) Branch hours as needed for Nausea and Vomiting (N/V). ketorolac 2022-0 2022- No [id number] 10mg Take 1 [facility] 10 mg 8-29 10-18 tablet by ity of tablet 00:00: 00:00 mouth [place] 00 :00 every 6 Medical (six) Branch hours as needed for Pain (scale 4-6) or Pain (scale 7-10). metaxalone 2022-0 2022- No [id number] 800mg Take 1 [facility] (SKELAXIN) 8-29 10-18 tablet by ity of 800 mg 00:00: 00:00 mouth in [place] tablet 00 :00 the Medical morning Branch and 1 tablet at noon and 1 tablet in the evening. ondansetron 2022-0 2022- No [id number] 4mg Take 1 [facility] 4 mg 8-29 10-18 tablet by ity of disintegrat 00:00: 00:00 mouth [place] tablet 00 :00 every 8 Medica l (eight) Branch hours as needed for Nausea and Vomiting (N/V). ketorolac 2022-0 2- No [id number] 10mg Take 1 [facility] 10 mg 8-29 10-18 tablet by ity of tablet 00:00: 00:00 mouth [place] 00 :00 every 6 Medical (six) Branch hours as needed for Pain (scale 4-6) or Pain (scale 7-10). metaxalone 2022-0 2022- No [id number] 800mg Take 1 [facility] (SKELAXIN) 8-29 10-18 tablet by ity of 800 mg 00:00: 00:00 mouth in [place] tablet 00 :00 the Medical morning Branch and 1 tablet at noon and 1 tablet in the evening. ondansetron 2022-0 2022- No [id number] 4mg Take 1 [facility] 4 mg 8-29 10-18 tablet by ity of disintegrat 00:00: 00:00 mouth [place] tablet 00 :00 every 8 Medica l (eight) Branch hours as needed for Nausea and Vomiting (N/V). ketorolac 2-0 2021- No [id number] 10mg Take 1 [facility] 10 mg 8-29 10-18 tablet by ity of tablet 00:00: 00:00 mouth [place] 00 :00 every 6 Medical (six) Branch hours as needed for Pain (scale 4-6) or Pain (scale 7-10). metaxalone 2021-0 2021- No [id number] 800mg Take 1 [facility] (SKELAXIN) 8-29 10-18 [...] mouth. ity of supp. no.8 15:08: 00:00 [place] (TRAZAMINE 46 :00 Medical ORAL) Branch diphenhydrA 0 Yes 25mg Take 25 mg [facility] MINE 25 mg 12-12 by mouth ity o f capsule 13:03: every 6 [place] 04 (six) Medical hours as Branch needed for Allergies. carbamazepi 0 Yes Take by [facility] vers ne 8-02 mouth. ity of (TEGRETOL 13:03: [place] ORAL) 04 Medical Branch citalopram 2021-[address] [facility] ers hydrobromid 802 mouth. ity of e 13:03: [place] (CITALOPRAM 04 Medical ORAL) Branch ALBUTEROL 0 Yes [facility] INHALE 8-02 ity of 13:03: [place] [address] Medical Branch diphenhydrA 0 Yes 25mg Take 25 mg [facility] MINE 25 mg 802 by mouth ity o f capsule 13:03: every 6 [place] [address] (six) Medical hours as Branch needed for Allergies. carbamazepi 0 Yes Take by [facility] vers ne 8-02 mouth. ity of (TEGRETOL 13:03: [place] ORAL) Medical Branch citalopram Yes Take by [facility] ers hydrobromid 8-02 mouth. ity of e 13:03: [place] (CITALOPRAM 04 Medical ORAL) Branch ALBUTEROL Yes [facility] INHALE 8- ity of 13:03: [place] [address] Medical Branch diphenhydrA Yes 25mg Take 25 mg [facility] MINE 25 mg 802 by mouth ity o f capsule 13:03: every 6 [place] [address] (six) Medical hours as Branch needed for Allergies. carbamazepi 0 Yes Take by [facility] vers ne 8-02 mouth. ity of (TEGRETOL 13:03: [place] ORAL) Medical Branch citalopram Yes Take by [facility] ers hydrobromid 8-02 mouth. ity of e 13:03: [place] (CITALOPRAM 04 Medical ORAL) Branch ALBUTEROL Yes [facility] INHALE 8- ity of 13:03: [place] [address] Medical Branch diphenhydrA Yes 25mg Take 25 mg [facility] MINE 25 mg 12-12 by mouth ity o f capsule 13:03: every 6 [place] [address] (six) Medical hours as Branch needed for Allergies. carbamazepi 0 Yes Take by [facility] vers ne 8-02 mouth. ity of (TEGRETOL 13:03: [place] ORAL) 04 Medical Branch citalopram Yes Take by [facility] ers hydrobromid 8-02 mouth. ity of e 13:03: [place] (CITALOPRAM 04 Medical ORAL) Branch ALBUTEROL 0 Yes [facility] INHALE 802 ity of 13:03: [place] [address] Medical Branch diphenhydrA Yes 25mg Take 25 mg [facility] MINE 25 mg 8-02 by mouth ity o f capsule 13:03: every 6 [place] [address] (six) Medical hours as Branch needed for Allergies. carbamazepi 0 Yes Take by [facility] vers ne 8-02 mouth. ity of (TEGRETOL 13:03: [place] ORAL) 04 Medical Branch citalopram Yes Take by [facility] ers hydrobromid 8-02 mouth. ity of e 13:03: [place] (CITALOPRAM 04 Medical ORAL) Branch ALBUTEROL Yes [facility] INHALE 8-02 ity of 13:03: Medical Branch diphenhydrA Yes 25mg Take 25 mg [facility] MINE 25 mg 8-02 by mouth ity o f capsule 13:03: every 6 [place] [address] (six) Medical hours as Branch needed for Allergies. carbamazepi Yes Take by [facility] vers ne 8-02 mouth. ity of (TEGRETOL 13:03: [place] ORAL) Medical Branch citalopram Yes Take by [facility] ers hydrobromid 8-02 mouth. ity of e 13:03: [place] (CITALOPRAM 04 Medical ORAL) Branch ALBUTEROL Yes [facility] INHALE 8-02 ity of 13:03: [place] [address] Medical Branch diphenhydrA Yes 25mg Take 25 mg [facility] MINE 25 mg 8 by mouth ity o f capsule 13:03: every 6 [place] [address] (six) Medical hours as Branch needed for Allergies. carbamazepi Yes Take by [facility] vers ne 8-02 mouth. ity of (TEGRETOL 13:03: [place] ORAL) Medical Branch citalopram Yes Take by [facility] ers hydrobromid 8-02 mouth. ity of e 13:03: [place] (CITALOPRAM 04 Medical ORAL) Branch ALBUTEROL Yes [facility] INHALE 8-02 ity of 13:03: [place] [address] Medical Branch diphenhydrA 0 Yes 25mg Take 25 mg [facility] MINE 25 mg 802 by mouth ity o f capsule 13:03: every 6 [place] [address] (six) Medical hours as Branch needed for Allergies. carbamazepi 0 Yes Take by [facility] vers ne 8-02 mouth. ity of (TEGRETOL 13:03: [place] ORAL) 04 Medical Branch citalopram Yes Take by [facility] ers hydrobromid 8-02 mouth. ity of e 13:03: [place] (CITALOPRAM 04 Medical ORAL) Branch ALBUTEROL Yes [facility] INHALE 802 ity of 13:03: [place] [address] Medical Branch diphenhydrA Yes 25mg Take 25 mg [facility] MINE 25 mg 8-02 by mouth ity o f capsule 13:03: every 6 [place] [address] (six) Medical hours as Branch needed for Allergies. carbamazepi 0 Yes Take by [facility] vers ne 8-02 mouth. ity of (TEGRETOL 13:03: [place] ORAL) Medical Branch citalopram Yes Take by [facility] ers hydrobromid 8-02 mouth. ity of e 13:03: [place] (CITALOPRAM 04 Medical ORAL) Branch ALBUTEROL Yes [facility] INHALE 8 ity of 13:03: [place] [address] Medical Branch diphenhydrA Yes 25mg Take 25 mg [facility] MINE 25 mg 802 by mouth ity o f capsule 13:03: every 6 [place] [address] (six) Medical hours as Branch needed for Allergies. carbamazepi Yes Take by [facility] vers ne 8-02 mouth. ity of (TEGRETOL 13:03: [place] ORAL) Medical Branch citalopram Yes Take by [facility] ers hydrobromid 8-02 mouth. ity of e 13:03: [place] (CITALOPRAM 04 Medical ORAL) Branch ALBUTEROL Yes [facility] INHALE 8 ity of 13:03: [place] [address] Medical Branch diphenhydrA Yes 25mg Take 25 mg [facility] MINE 25 mg 8-02 by mouth ity o f capsule 13:03: every 6 [place] [address] (six) Medical hours as Branch needed for Allergies. carbamazepi 0 Yes Take by [facility] vers ne 8-02 mouth. ity of (TEGRETOL 13:03: [place] ORAL) 04 Medical Branch citalopram Yes Take by [facility] ers hydrobromid 8-02 mouth. ity of e 13:03: [place] (CITALOPRAM 04 Medical ORAL) Branch ALBUTEROL Yes [facility] INHALE 8-02 ity of 13:03: [address] ALBUTEROL Yes [facility] INHALE 8-02 ity of 13:03: [address] ALBUTEROL Yes [facility] INHALE 8-02 ity of 13:03: [address] ALBUTEROL Yes [facility] INHALE 8-02 ity of 13:03: [address] ALBUTEROL Yes [facility] INHALE 8-02 ity of 13:03: [address] ALBUTEROL Yes [facility] INHALE 8-02 ity of 13:03: [address] ALBUTEROL Yes [facility] INHALE 8-02 ity of 13:03: [address] ALBUTEROL Yes [facility] INHALE 8-02 ity of 13:03: [address] ALBUTEROL Yes [facility] INHALE 8-02 ity of 13:03: [address] ALBUTEROL Yes [facility] INHALE 8-02 ity of 13:03: [address] ALBUTEROL Yes [facility] INHALE 8-02 ity of 13:03: [address] ALBUTEROL Yes [facility] INHALE 8-02 ity of 13:03: [address] ALBUTEROL Yes [facility] INHALE 8-02 ity of 13:03: [address] ALBUTEROL Yes [facility] INHALE 8-02 ity of 13:03: [address] ALBUTEROL Yes Univers INHALE 8-02 ity of 13:03: [address] traZODone Yes [id number] 50mg Take 1 U nivers 50 mg 8-02 tablet by ity of tablet 00:00: mouth at [place] 00 bedtime. Medical Branch SERTraline Yes [id number] 50mg Take 1 [facility] (ZOLOFT) 50 8-02 tablet by ity of mg tablet 00:00: [place] 00 the Medical morning. Branch traZODone Yes [id number] 50mg Take 1 U nivers 50 mg 8-02 tablet by ity of tablet 00:00: mouth at [place] 00 bedtime. Medical Branch SERTraline Yes 50mg Take 1 [facility] (ZOLOFT) 50 8-02 tablet by ity of mg tablet 00:00: mouth [place] 00 the Medical morning. Branch traZODone 0 Yes [id number] 50mg Take 1 U nivers 50 mg 8-02 tablet by ity of tablet 00:00: mouth at [place] 00 bedtime. Medical Branch SERTraline 0 Yes 50mg Take 1 [facility] (ZOLOFT) 50 8-02 tablet by ity of mg tablet 00:00: mouth [place] 00 the Medical morning. Branch traZODone 0 Yes [id number] 50mg Take 1 U nivers 50 mg 8-02 tablet by ity of tablet 00:00: mouth at [place] 00 bedtime. Medical Branch SERTraline 0 Yes 50mg Take 1 [facility] (ZOLOFT) 50 8-02 tablet by ity of mg tablet 00:00: mouth [place] 00 the Medical morning. Branch traZODone 0 Yes [id number] 50mg Take 1 U nivers 50 mg 8-02 tablet by ity of tablet 00:00: mouth at [place] 00 bedtime. Medical Branch SERTraline 0 Yes 50mg Take 1 [facility] (ZOLOFT) 50 8-02 tablet by ity of mg tablet 00:00: mouth [place] 00 the Medical morning. Branch traZODone 0 Yes [id number] 50mg Take 1 U nivers 50 mg 8-02 tablet by ity of tablet 00:00: mouth at [place] 00 bedtime. Medical Branch SERTraline 0 Yes [id number] 50mg Take 1 [facility] (ZOLOFT) 50 8-02 tablet by ity of mg tablet 00:00: mouth [place] 00 the Medical morning. Branch traZODone 0 Yes [id number] 50mg Take 1 U nivers 50 mg 8-02 tablet by ity of tablet 00:00: mouth at [place] 00 bedtime. Medical Branch SERTraline Yes [id number] 50mg Take 1 [facility] (ZOLOFT) 50 8-02 tablet by ity of mg tablet 00:00: mouth [place] 00 the Medical morning. Branch traZODone Yes [id number] 50mg Take 1 U nivers 50 mg 8-02 tablet by ity of tablet 00:00: mouth at [place] 00 bedtime. Medical Branch SERTraline Yes [id number] 50mg Take 1 [facility] (ZOLOFT) 50 8-02 tablet by ity of mg tablet 00:00: mouth [place] 00 the Medical morning. Branch traZODone 0 Yes [id number] 50mg Take 1 U nivers 50 mg 8-02 tablet by ity of tablet 00:00: mouth at [place] 00 bedtime. Medical Branch SERTraline Yes [id number] 50mg Take 1 [facility] (ZOLOFT) 50 8-02 tablet by ity of mg tablet 00:00: mouth [place] 00 the Medical morning. Branch traZODone Yes [id number] 50mg Take 1 U nivers 50 mg 8-02 tablet by ity of tablet 00:00: mouth at [place] 00 bedtime. Medical Branch SERTraline Yes [id number] 50mg Take 1 [facility] (ZOLOFT) 50 8-02 tablet by ity of mg tablet 00:00: mouth [place] 00 the Medical morning. Branch traZODone Yes [id number] 50mg Take 1 U nivers 50 mg 8-02 tablet by ity of tablet 00:00: mouth at [place] 00 bedtime. Medical Branch SERTraline Yes [id number] 50mg Take 1 [facility] (ZOLOFT) 50 8-02 tablet by ity of mg tablet 00:00: mouth [place] 00 the Medical morning. Branch traZODone 2021- No [id number] 50mg Take 1 [facility] 50 mg 8-02 10-18 tablet by ity of tablet 00:00: 00:00 mouth at [place] 00 :00 bedtime. Medical Branch SERTraline 2021- No [id number] 50mg Take 1 [facility] (ZOLOFT) 50 8-02 10-18 tablet by it y of mg tablet 00:00: 00:00 mouth in [place] as 00 :00 the Medical morning. Branch traZODone 2021- No [id number] 50mg Take 1 [facility] 50 mg 8-02 10-18 tablet by ity of tablet 00:00: 00:00 mouth at [place] 00 :00 bedtime. Medical Branch SERTraline 2021- No [id number] 50mg Take 1 [facility] (ZOLOFT) 50 8- 10-18 tablet by it y of mg tablet 00:00: 00:00 mouth in [facility] as 00 :00 the Medical morning. Branch traZODone 2021- No [id number] 50mg Take 1 [facility] 50 mg 8- 10-18 tablet by ity of tablet 00:00: 00:00 mouth at [place] 00 :00 bedtime. Medical Branch SERTraline 2021- No [id number] 50mg Take 1 [facility] (ZOLOFT) 50 8- 10-18 tablet by it y of mg tablet 00:00: 00:00 mouth in [facility] as 00 :00 the Medical morning. Branch traZODone 2021- No [id number] 50mg Take 1 [facility] 50 mg 8- 10-18 tablet by ity of tablet 00:00: 00:00 mouth at [place] 00 :00 bedtime. Medical Branch SERTraline 2021- No [id number] 50mg Take 1 [facility] (ZOLOFT) 50 8- 10-18 tablet by it y of mg tablet 00:00: 00:00 mouth in [facility] as 00 :00 the Medical morning. Branch sulfamethox 2021- No [id number] 1{tbl} Take 1 [facility] azole-trime - 08-06 tablet by it y of thoprim 00:00: 04:59 mouth in [place] (BACTRIM 00 :00 the Medical DS) 800-160 morning Branc h mg per and 1 tablet tablet in the evening. Do all this for 3 days. ibuprofen Yes [id number] 600mg Take 1 [facility] 600 mg 7-15 tablet by ity of tablet 00:00: mouth [place] [address] every 6 Medical (six) Branch hours as needed for Pain (scale 4-6). ibuprofen 0 Yes [id number] 600mg Take 1 [facility] 600 mg 7-15 tablet by ity of tablet 00:00: mouth [place] [address] every 6 Medical (six) Branch hours as needed for Pain (scale 4-6). ibuprofen 2021-0 Yes [id number] 600mg Take 1 [facility] 600 mg 7-15 tablet by ity of tablet 00:00: mouth [place] 00 every 6 Medical (six) Branch hours as needed for Pain (scale 4-6). ibuprofen 2022-0 Yes [id number] 600mg Take 1 [facility] 600 mg 7-15 tablet by ity of tablet 00:00: mouth [place] 00 every 6 Medical (six) Branch hours as needed for Pain (scale 4-6). ibuprofen 2022-0 Yes [id number] 600mg Take 1 [facility] 600 mg 7-15 tablet by ity of tablet 00:00: mouth [place] 00 every 6 Medical (six) Branch hours as needed for Pain (scale 4-6). ibuprofen 2022-0 Yes [id number] 600mg Take 1 [facility] 600 mg 7-15 tablet by ity of tablet 00:00: mouth [place] 00 every 6 Medical (six) Branch hours as needed for Pain (scale 4-6). ibuprofen 2022-0 Yes [id number] 600mg Take 1 [facility] 600 mg 7-15 tablet by ity of tablet 00:00: mouth [place] 00 every 6 Medical (six) Branch hours as needed for Pain (scale 4-6). ibuprofen 2022-0 Yes [id number] 600mg Take 1 [facility] 600 mg 7-15 tablet by ity of tablet 00:00: mouth [place] 00 every 6 Medical (six) Branch hours as needed for Pain (scale 4-6). ibuprofen 2022-0 Yes [id number] 600mg Take 1 [facility] 600 mg 7-15 tablet by ity of tablet 00:00: mouth [place] 00 every 6 Medical (six) Branch hours as needed for Pain (scale 4-6). ibuprofen 2022-0 Yes [id number] 600mg Take 1 [facility] 600 mg 7-15 tablet by ity of tablet 00:00: mouth [place] 00 every 6 Medical (six) Branch hours as needed for Pain (scale 4-6). ibuprofen 2022-0 Yes [id number] 600mg Take 1 [facility] 600 mg 7-15 tablet by ity of tablet 00:00: mouth [place] 00 every 6 Medical (six) Branch hours as needed for Pain (scale 4-6). ibuprofen 2022-0 2022- No [id number] 600mg Take 1 [facility] 600 mg 7-15 10-18 tablet by ity of tablet 00:00: 00:00 mouth [place] 00 :00 every 6 Medical (six) Branch hours as needed for Pain (scale 4-6). ibuprofen 2021-2021- No [id number] 600mg Take 1 [facility] 600 mg 7-15 10-18 tablet by ity of tablet 00:00: 00:00 mouth [place] 00 :00 every 6 Medical (six) Branch hours as needed for Pain (scale 4-6). ibuprofen 2021-2021- No [id number] 600mg Take 1 [facility] 600 mg 7-15 10-18 tablet by ity of tablet 00:00: 00:00 mouth [place] 00 :00 every 6 Medical (six) Branch hours as needed for Pain (scale 4-6). ibuprofen 2021-2021- No [id number] 600mg Take 1 [facility] 600 mg 7-15 10-18 tablet by ity of tablet 00:00: 00:00 mouth [place] 00 :00 every 6 Medical (six) Branch hours as needed for Pain (scale 4-6). ibuprofen 2021-2021- No [id number] 600mg Take 1 [facility] 600 mg 7-15 [...] Pain (scale 4-6). Indication s: acute pain acetaminoph 2021- No [id number] 1{tbl} Take 1 U nivers en-codeine 7-15 08- tablet by ity of 300-30 mg 00:00: 00:00 mouth [place] tablet 00 :00 every 4 Medical (four) Branch hours as needed for Pain (scale 4-6). Indication s: acute pain bromphenira 2021-0 Yes [id number] 5mL Take 5 mL [facility] mine-pseudo 11-18 by mouth 4 it y of ephedrine-D 00:00: (four) [place] (BROMFED 00 times Medical DM) 2-30-10 daily as Bran ch mg/5 mL needed for syrup Congestion /Allergies or Cough. naproxen 2022-0 Yes [id number] 500mg Take 1 U nivers 500 mg 7-09 tablet by ity of tablet 00:00: mouth [place] 00 every 8 Medical (eight) Branch hours as needed for Pain (scale 4-6). cyclobenzap 2021-0 Yes [id number] 10mg Take 1 [facility] rine 10 mg 7-09 tablet by ity of tablet 00:00: mouth at [place] 00 bedtime as Medical needed for Branch Muscle Spasms. bromphenira 202-0 Yes [id number] 5mL Take 5 mL [facility] mine-pseudo 7-09 by mouth 4 it y of ephedrine-D 00:00: (four) [place] (BROMFED 00 times Medical DM) 2-30-10 daily as Bran ch mg/5 mL needed for syrup Congestion /Allergies or Cough. naproxen 2021-0 Yes [id number] 500mg Take 1 U nivers 500 mg 7-09 tablet by ity of tablet 00:00: mouth [place] 00 every 8 Medical (eight) Branch hours as needed for Pain (scale 4-6). cyclobenzap 2021-0 Yes [id number] 10mg Take 1 [facility] rine 10 mg 7-09 tablet by ity of tablet 00:00: mouth at [place] 00 bedtime as Medical needed for Branch Muscle Spasms. bromphenira 2021-0 Yes [id number] 5mL Take 5 mL [facility] mine-pseudo 7-09 by mouth 4 it y of ephedrine-D 00:00: (four) [place] M (BROMFED 00 times Medical DM) 2-30-10 daily as Bran ch mg/5 mL needed for syrup Congestion /Allergies or Cough. naproxen 2-0 Yes [id number] 500mg Take 1 U nivers 500 mg 7-09 tablet by ity of tablet 00:00: mouth [place] 00 every 8 Medical (eight) Branch hours as needed for Pain (scale 4-6). cyclobenzap 2022-0 Yes [id number] 10mg Take 1 [facility] rine 10 mg 7-09 tablet by ity of tablet 00:00: mouth at [place] 00 bedtime as Medical needed for Branch Muscle Spasms. bromphenira 2022-0 Yes [id number] 5mL Take 5 mL [facility] mine-pseudo 7-09 by mouth 4 it y of ephedrine-D 00:00: (four) [place] M (BROMFED 00 times Medical DM) 2-30-10 daily as Bran ch mg/5 mL needed for syrup Congestion /Allergies or Cough. naproxen 2022-0 Yes [id number] 500mg Take 1 U nivers 500 mg 7-09 tablet by ity of tablet 00:00: mouth [place] 00 every 8 Medical (eight) Branch hours as needed for Pain (scale 4-6). cyclobenzap 2-0 Yes [id number] 10mg Take 1 [facility] rine 10 mg 7-09 tablet by ity of tablet 00:00: mouth at [place] 00 bedtime as Medical needed for Branch Muscle Spasms. bromphenira 2-0 Yes [id number] 5mL Take 5 mL [facility] mine-pseudo 7-09 by mouth 4 it y of ephedrine-D 00:00: (four) [place] (BROMFED 00 times Medical DM) 2-30-10 daily as Bran ch mg/5 mL needed for syrup Congestion /Allergies or Cough. naproxen 2-0 Yes [id number] 500mg Take 1 U nivers 500 mg 7-09 tablet by ity of tablet 00:00: mouth [place] 00 every 8 Medical (eight) Branch hours as needed for Pain (scale 4-6). cyclobenzap 2021-0 Yes [id number] 10mg Take 1 [facility] rine 10 mg 7-09 tablet by ity of tablet 00:00: mouth at [place] 00 bedtime as Medical needed for Branch Muscle Spasms. bromphenira 2-0 Yes [id number] 5mL Take 5 mL [facility] mine-pseudo 7-09 by mouth 4 it y of ephedrine-D 00:00: (four) [place] M (BROMFED 00 times Medical DM) 2-30-10 daily as Bran ch mg/5 mL needed for syrup Congestion /Allergies or Cough. naproxen 2022-0 Yes [id number] 500mg Take 1 U nivers 500 mg 7-09 tablet by ity of tablet 00:00: mouth [place] 00 every 8 Medical (eight) Branch hours as needed for Pain (scale 4-6). cyclobenzap 2022-0 Yes [id number] 10mg Take 1 Univers rine 10 mg 7-09 tablet by ity of tablet 00:00: mouth at [place] 00 bedtime as Medical needed for Branch Muscle Spasms. bromphenira 2021-0 Yes [id number] 5mL Take 5 mL [facility] mine-pseudo 7-09 by mouth 4 it y of ephedrine-D 00:00: (four) [place] (BROMFED 00 times Medical DM) 2-30-10 daily as Bran ch mg/5 mL needed for syrup Congestion /Allergies or Cough. naproxen 2021-0 Yes [id number] 500mg Take 1 U nivers 500 mg 7-09 tablet by ity of tablet 00:00: mouth [place] 00 every 8 Medical (eight) Branch hours as needed for Pain (scale 4-6). cyclobenzap 2021-0 Yes [id number] 10mg Take 1 Univers rine 10 mg 7-09 tablet by ity of tablet 00:00: mouth at [place] 00 bedtime as Medical needed for Branch Muscle Spasms. bromphenira 2021-0 Yes [id number] 5mL Take 5 mL [facility] mine-pseudo 7-09 by mouth 4 it y of ephedrine-D 00:00: (four) [place] M (BROMFED 00 times Medical DM) 2-30-10 daily as Bran ch mg/5 mL needed for syrup Congestion /Allergies or Cough. naproxen 2021-0 Yes [id number] 500mg Take 1 U nivers 500 mg 7-09 tablet by ity of tablet 00:00: mouth [place] 00 every 8 Medical (eight) Branch hours as needed for Pain (scale 4-6). cyclobenzap 2-0 Yes [id number] 10mg Take 1 Univers rine 10 mg 7-09 tablet by ity of tablet 00:00: mouth at [place] 00 bedtime as Medical needed for Branch Muscle Spasms. bromphenira 2-0 Yes [id number] 5mL Take 5 mL [facility] mine-pseudo 7-09 by mouth 4 it y of ephedrine-D 00:00: (four) [place] (BROMFED 00 times Medical DM) 2-30-10 daily as Bran ch mg/5 mL needed for syrup Congestion /Allergies or Cough. naproxen 2-0 Yes [id number] 500mg Take 1 U nivers 500 mg 7-09 tablet by ity of tablet 00:00: mouth [place] 00 every 8 Medical (eight) Branch hours as needed for Pain (scale 4-6). cyclobenzap 2021-0 Yes [id number] 10mg Take 1 Univers rine 10 mg 7-09 tablet by ity of tablet 00:00: mouth at [place] 00 bedtime as Medical needed for Branch Muscle Spasms. bromphenira 2021-0 Yes [id number] 5mL Take 5 mL [facility] mine-pseudo 7-09 by mouth 4 it y of ephedrine-D 00:00: (four) [place] (BROMFED 00 times Medical DM) 2-30-10 daily as Bran ch mg/5 mL needed for syrup Congestion /Allergies or Cough. naproxen 2021-0 Yes [id number] 500mg Take 1 U nivers 500 mg 7-09 tablet by ity of tablet 00:00: mouth [place] 00 every 8 Medical (eight) Branch hours as needed for Pain (scale 4-6). cyclobenzap 2021-0 Yes [id number] 10mg Take 1 [facility] rine 10 mg 7-09 tablet by ity of tablet 00:00: mouth at [place] 00 bedtime as Medical needed for Branch Muscle Spasms. bromphenira 2021-0 Yes [id number] 5mL Take 5 mL [facility] mine-pseudo 7-09 by mouth 4 it y of ephedrine-D 00:00: (four) [place] (BROMFED 00 times Medical DM) 2-30-10 daily as Bran ch mg/5 mL needed for syrup Congestion /Allergies or Cough. naproxen 2-0 Yes [id number] 500mg Take 1 [facility] n[facility] 500 mg 7-09 tablet by ity of tablet 00:00: mouth [place] 00 every 8 Medical (eight) Branch hours as needed for Pain (scale 4-6). cyclobenzap 2-0 Yes [id number] 10mg Take 1 [facility] rine 10 mg 7-09 tablet by ity of tablet 00:00: mouth at [place] 00 bedtime as Medical needed for Branch Muscle Spasms. bromphenira 2022-0 Yes [id number] 5mL Take 5 mL [facility] mine-pseudo 7-09 by mouth 4 it y of ephedrine-D 00:00: (four) [place] (BROMFED 00 times Medical DM) 2-30-10 daily as Bran ch mg/5 mL needed for syrup Congestion /Allergies or Cough. bromphenira 2022-0 Yes [id number] 5mL Take 5 mL [facility] mine-pseudo 7-09 by mouth 4 it y of ephedrine-D 00:00: (four) [place] [facility] (BROMFED 00 times Medical DM) 2-30-10 daily as Bran ch mg/5 mL needed for syrup Congestion /Allergies or Cough. bromphenira 2022-0 Yes [id number] 5mL Take 5 mL [facility] mine-pseudo 7-09 by mouth 4 it y of ephedrine-D 00:00: (four) [place] (BROMFED 00 times Medical DM) 2-30-10 daily as Bran ch mg/5 mL needed for syrup Congestion /Allergies or Cough. bromphenira 2-0 Yes [id number] 5mL Take 5 mL [facility] mine-pseudo 7-09 by mouth 4 it y of ephedrine-D 00:00: (four) [place] [facility] (BROMFED 00 times Medical DM) 2-30-10 daily as Bran ch mg/5 mL needed for syrup Congestion /Allergies or Cough. bromphenira 2-0 Yes [id number] 5mL Take 5 mL [facility] mine-pseudo 7-09 by mouth 4 it y of ephedrine-D 00:00: (four) [place] [facility] (BROMFED 00 times Medical DM) 2-30-10 daily as Bran ch mg/5 mL needed for syrup Congestion /Allergies or Cough. bromphenira 2-0 Yes [id number] 5mL Take 5 mL [facility] mine-pseudo 7-09 by mouth 4 it y of ephedrine-D 00:00: (four) [place] (BROMFED 00 times Medical DM) 2-30-10 daily as Bran ch mg/5 mL needed for syrup Congestion /Allergies or Cough. bromphenira 2-0 Yes [id number] 5mL Take 5 mL [facility] mine-pseudo 7-09 by mouth 4 it y of ephedrine-D 00:00: (four) [place] (BROMFED 00 times Medical DM) 2-30-10 daily as Bran ch mg/5 mL needed for syrup Congestion /Allergies or Cough. bromphenira 2022-0 Yes [id number] 5mL Take 5 mL [facility] mine-pseudo 7-09 by mouth 4 it y of ephedrine-D 00:00: (four) [place] (BROMFED 00 times Medical DM) 2-30-10 daily as Bran ch mg/5 mL needed for syrup Congestion /Allergies or Cough. bromphenira 2021-0 Yes [id number] 5mL Take 5 mL [facility] mine-pseudo 7-09 by mouth 4 it y of ephedrine-D 00:00: (four) [place] (BROMFED 00 times Medical DM) 2-30-10 daily as Bran ch mg/5 mL needed for syrup Congestion /Allergies or Cough. bromphenira 2021-0 Yes [id number] 5mL Take 5 mL [facility] mine-pseudo 7-09 by mouth 4 it y of ephedrine-D 00:00: (four) [place] (BROMFED 00 times Medical DM) 2-30-10 daily as Bran ch mg/5 mL needed for syrup Congestion /Allergies or Cough. bromphenira 2021-0 Yes [id number] 5mL Take 5 mL [facility] mine-pseudo 7-09 by mouth 4 it y of ephedrine-D 00:00: (four) [place] (BROMFED 00 times Medical DM) 2-30-10 daily as Bran ch mg/5 mL needed for syrup Congestion /Allergies or Cough. bromphenira 2021-0 Yes [id number] 5mL Take 5 mL [facility] mine-pseudo 7-09 by mouth 4 it y of ephedrine-D 00:00: (four) [place] (BROMFED 00 times Medical DM) 2-30-10 daily as Bran ch mg/5 mL needed for syrup Congestion /Allergies or Cough. bromphenira 2021-0 Yes [id number] 5mL Take 5 mL [facility] mine-pseudo 7-09 by mouth 4 it y of ephedrine-D 00:00: (four) [place] (BROMFED 00 times Medical DM) 2-30-10 daily as Bran ch mg/5 mL needed for syrup Congestion /Allergies or Cough. bromphenira 202-0 Yes [id number] 5mL Take 5 mL [facility] mine-pseudo 7-09 by mouth 4 it y of ephedrine-D 00:00: (four) [place] (BROMFED 00 times Medical DM) 2-30-10 daily as Bran ch mg/5 mL needed for syrup Congestion /Allergies or Cough. bromphenira 2021- No [id number] 5mL Take 5 mL [facility] mine-pseudo 11-1812 by mouth 4 i ty of ephedrine-D 00:00: 00:00 (four) [place] (BROMFED 00 :00 times Medical DM) 2-30-10 daily as Bran ch mg/5 mL needed for syrup Congestion /Allergies or Cough. bromphenira 2021- No [id number] 5mL Take 5 mL [facility] mine-pseudo 11-18 by mouth 4 i ty of ephedrine-D 00:00: 00:00 (four) [place] (BROMFED 00 :00 times Medical DM) 2-30-10 daily as Bran ch mg/5 mL needed for syrup Congestion /Allergies or Cough. naproxen No [id number] 500mg Take 1 [facility] 500 mg 7- 10-18 tablet by ity of tablet 00:00: 00:00 mouth [place] 00 :00 every 8 Medical (eight) Branch hours as needed for Pain (scale 4-6). cyclobenzap No [id number] 10mg Take 1 [facility] rine 10 mg 7- 10-18 tablet by ity of tablet 00:00: 00:00 mouth at [place] 00 :00 bedtime as Medical needed for Branch Muscle Spasms. naproxen No [id number] 500mg Take 1 [facility] 500 mg 7- 10-18 tablet by ity of tablet 00:00: 00:00 mouth [place] 00 :00 every 8 Medical (eight) Branch hours as needed for Pain (scale 4-6). cyclobenzap No [id number] 10mg Take 1 [facility] rine 10 mg 7- 10-18 tablet by ity of tablet 00:00: 00:00 mouth at [place] 00 :00 bedtime as Medical needed for Branch Muscle Spasms. naproxen No [id number] 500mg Take 1 [facility] 500 mg 7-09 10-18 tablet by ity of tablet 00:00: 00:00 mouth [place] 00 :00 every 8 Medical (eight) Branch hours as needed for Pain (scale 4-6). cyclobenzap No [id number] 10mg Take 1 [facility] rine 10 mg 7- 10-18 tablet by ity of tablet 00:00: 00:00 mouth at [place] 00 :00 bedtime as Medical needed for Branch Muscle Spasms. naproxen 2021- No [id number] 500mg Take 1 [facility] 500 mg 7- 10-18 tablet by ity of tablet 00:00: 00:00 mouth [place] 00 :00 every 8 Medical (eight) Branch hours as needed for Pain (scale 4-6). cyclobenzap No [id number] 10mg Take 1 [facility] rine 10 mg 7- 10-18 tablet by ity of tablet 00:00: 00:00 mouth at [place] 00 :00 bedtime as Medical needed for Branch Muscle Spasms. naproxen 2021- No [id number] 500mg Take 1 [facility] 500 mg 7- 10-18 tablet by ity of tablet 00:00: 00:00 mouth [place] 00 :00 every 8 Medical (eight) Branch hours as needed for Pain (scale 4-6). cyclobenzap No [id number] 10mg Take 1 [facility] rine 10 mg 7- 10-18 tablet by ity of tablet 00:00: 00:00 mouth at [place] 00 :00 bedtime as Medical needed for Branch Muscle Spasms. ibuprofen Yes [id number] 605mg Take 30.25 [facility] 100 mg/5 mL 6-15 mL by ity of oral 00:00: mouth [place] 00 every 6 Medica l (six) Branch hours as needed for Pain (scale 4-6) or Temp > 38.5 C. ibuprofen Yes [id number] 605mg Take 30.25 [facility] 100 mg/5 mL 6-15 mL by ity of oral 00:00: mouth [place] suspension 00 every 6 Medica l (six) Branch hours as needed for Pain (scale 4-6) or Temp > 38.5 C. ibuprofen Yes [id number] 605mg Take 30.25 [facility] 100 mg/5 mL 6-15 mL by ity of oral 00:00: mouth [place] suspension 00 every 6 Medica l (six) Branch hours as needed for Pain (scale 4-6) or Temp > 38.5 C. ibuprofen 2021-0 Yes [id number] 605mg Take 30.25 [facility] 100 mg/5 mL 6-15 mL by ity of oral 00:00: mouth [place] suspension 00 every 6 Medica l (six) Branch hours as needed for Pain (scale 4-6) or Temp > 38.5 C. ibuprofen 2021-0 Yes [id number] 605mg Take 30.25 [facility] 100 mg/5 mL 6-15 mL by ity of oral 00:00: mouth [place] suspension 00 every 6 Medica l (six) Branch hours as needed for Pain (scale 4-6) or Temp > 38.5 C. ibuprofen 2021-0 Yes [id number] 605mg Take 30.25 [facility] 100 mg/5 mL 6-15 mL by ity of oral 00:00: mouth [place] suspension 00 every 6 Medica l (six) Branch hours as needed for Pain (scale 4-6) or Temp > 38.5 C. ibuprofen 2021-0 Yes [id number] 605mg Take 30.25 [facility] 100 mg/5 mL 6-15 mL by ity of oral 00:00: mouth [place] suspension 00 every 6 Medica l (six) Branch hours as needed for Pain (scale 4-6) or Temp > 38.5 C. ibuprofen 2021-0 Yes [id number] 605mg Take 30.25 [facility] 100 mg/5 mL 6-15 mL by ity of oral 00:00: mouth [place] suspension 00 every 6 Medica l (six) Branch hours as needed for Pain (scale 4-6) or Temp > 38.5 C. ibuprofen 2021-0 Yes [id number] 605mg Take 30.25 [facility] 100 mg/5 mL 6-15 mL by ity of oral 00:00: mouth [place] suspension 00 every 6 Medica l (six) Branch hours as needed for Pain (scale 4-6) or Temp > 38.5 C. ibuprofen 2021-0 Yes [id number] 605mg Take 30.25 [facility] 100 mg/5 mL 6-15 mL by ity of oral 00:00: mouth [place] suspension 00 every 6 Medica l (six) Branch hours as needed for Pain (scale 4-6) or Temp > 38.5 C. ibuprofen 202-0 Yes [id number] 605mg Take 30.25 [facility] 100 mg/5 mL 6-15 mL by ity of oral 00:00: mouth [place] suspension 00 every 6 Medica l (six) Branch hours as needed for Pain (scale 4-6) or Temp > 38.5 C. ibuprofen 2021- No [id number] 605mg Take 30.25 [facility] 100 mg/5 mL 6-15 10-18 mL by ity of oral 00:00: 00:00 mouth [place] suspension 00 :00 every 6 Medica l (six) Branch hours as needed for Pain (scale 4-6) or Temp > 38.5 C. ibuprofen 2021- No [id number] 605mg Take 30.25 [facility] 100 mg/5 mL 6-15 10-18 mL by ity of oral 00:00: 00:00 mouth [place] suspension 00 :00 every 6 Medica l (six) Branch hours as needed for Pain (scale 4-6) or Temp > 38.5 C. ibuprofen 2021- No [id number] 605mg Take 30.25 [facility] 100 mg/5 mL 6-15 10-18 mL by ity of oral 00:00: 00:00 mouth [place] suspension 00 :00 every 6 Medica l (six) Branch hours as needed for Pain (scale 4-6) or Temp > 38.5 C. ibuprofen 2021- No [id number] 605mg Take 30.25 [facility] 100 mg/5 mL 6-15 10-18 mL by ity of oral 00:00: 00:00 mouth [place] suspension 00 :00 every 6 Medica l (six) Branch hours as needed for Pain (scale 4-6) or Temp > 38.5 C. ibuprofen 2021- No [id number] 605mg Take 30.25 [facility] 100 mg/5 mL 6-15 10-18 mL by ity of oral 00:00: 00:00 mouth [place] suspension 00 :00 every 6 Medica l (six) Branch hours as needed for Pain (scale 4-6) or Temp > 38.5 C. acetaminoph 2021-2021- No [id number] 608mg Take 19 mL [facility] en 160 mg/5 6-15 08- by mouth ity of mL liquid 00:00: 00:00 every 6 [place] 00 :00 (six) Medical hours as Branch needed for Fever. acetaminoph 2021-0 2- No [id number] 608mg Take 19 mL [facility] en 160 mg/5 6-15 - by mouth ity of mL liquid 00:00: 00:00 every 6 [place] 00 :00 (six) Medical hours as Branch needed for Fever. DULoxetine 2021-0 Yes [facility] 60 mg 5-27 ity of capsule 00:00: [place] 00 Medical Branch DULoxetine 2022-0 Yes [facility] 60 mg 5-27 ity of capsule 00:00: [place] [address] Medical Branch DULoxetine 2-0 Yes [facility] 60 mg 5-27 ity of capsule 00:00: [place] [address] Medical Branch DULoxetine 2-0 Yes [facility] 60 mg 5-27 ity of capsule 00:00: [place] [address] Medical Branch DULoxetine 2022-0 Yes [facility] 60 mg 5-27 ity of capsule 00:00: [place] [address] Medical Branch DULoxetine 2-0 Yes [facility] 60 mg 5-27 ity of capsule 00:00: [place] [address] Medical Branch DULoxetine 2-0 Yes [facility] 60 mg 5-27 ity of capsule 00:00: [place] 00 Medical Branch DULoxetine 2-0 Yes [facility] 60 mg 5-27 ity of capsule 00:00: [place] [address] Medical Branch DULoxetine 2-0 Yes [facility] 60 mg 5-27 ity of capsule 00:00: [place] [address] Medical Branch DULoxetine 2-0 Yes [facility] 60 mg 5-27 ity of capsule 00:00: [place] [address] Medical Branch DULoxetine 2022-0 Yes [facility] 60 mg 5-27 ity of capsule 00:00: [place] 00 Medical Branch DULoxetine 2-0 2022- No Univer s 60 mg 5-27 10-18 ity of capsule 00:00: 00:00 [place] 00 :00 Medical Branch DULoxetine 2022-0 2022- No Univer s 60 mg 5-27 10-18 ity of capsule 00:00: 00:00 [place] 00 :00 Medical Branch DULoxetine 2022-0 2022- No Univer s 60 mg 5-27 10-18 ity of capsule 00:00: 00:00 [place] 00 :00 Medical Branch DULoxetine 2-0 2022- No Univer s 60 mg 5-27 10-18 ity of capsule 00:00: 00:00 [place] 00 :00 Medical Branch traZODone 0 2021- No [facility] 50 mg 5-27 12-12 ity of tablet 00:00: 00:00 [place] 00 :00 Medical Branch mometasone 2021-0 Yes [id number] 1{spray Use 1 [facility] 50 5-19 } [place] in ity of mcg/actuati 00:00: each [place] on nasal 00 nostril 2 Medica l spray (two) Branch times daily. mometasone 2021-0 Yes [id number] 1{spray Use 1 [facility] 50 5-19 } [place] in ity of mcg/actuati 00:00: each [place] on nasal 00 nostril 2 Medica l spray (two) Branch times daily. mometasone 2021-0 Yes [id number] 1{spray Use 1 [facility] 50 5-19 } [place] in ity of mcg/actuati 00:00: each [place] on nasal 00 nostril 2 Medica l spray (two) Branch times daily. mometasone 2021-0 Yes [id number] 1{spray Use 1 [facility] 50 5-19 } [place] in ity of mcg/actuati 00:00: each [place] on nasal 00 nostril 2 Medica l spray (two) Branch times daily. mometasone 2021-0 Yes [id number] 1{spray Use 1 [facility] 50 5-19 } [place] in ity of mcg/actuati 00:00: each [place] on nasal 00 nostril 2 Medica l spray (two) Branch times daily. mometasone 2021-0 Yes [id number] 1{spray Use 1 [facility] 50 5-19 } [place] in ity of mcg/actuati 00:00: each [place] on nasal 00 nostril 2 Medica l spray (two) Branch times daily. mometasone 2021-0 Yes [id number] 1{spray Use 1 [facility] 50 5-19 } [place] in ity of mcg/actuati 00:00: each [place] on nasal 00 nostril 2 Medica l spray (two) Branch times daily. mometasone 2021-0 Yes [id number] 1{spray Use 1 [facility] 50 5-19 } [place] in ity of mcg/actuati 00:00: each [place] on nasal 00 nostril 2 Medica l spray (two) Branch times daily. mometasone Yes [id number] 1{spray Use 1 [facility] 50 5-19 } [place] in ity of mcg/actuati 00:00: each [place] on nasal 00 nostril 2 Medica l spray (two) Branch times daily. mometasone Yes [id number] 1{spray Use 1 [facility] 50 5-19 } [place] in ity of mcg/actuati 00:00: each [place] on nasal 00 nostril 2 Medica l spray (two) Branch times daily. mometasone Yes [id number] 1{spray Use 1 [facility] 50 5-19 } [place] in ity of mcg/actuati 00:00: each [place] on nasal 00 nostril 2 Medica l spray (two) Branch times daily. mometasone 2021- No [id number] 1{spray Use 1 [facility] 50 5-19 10-18 } [place] in ity of mcg/actuati 00:00: 00:00 each [place] on nasal 00 :00 nostril 2 Medica l spray (two) Branch times daily. mometasone 2021- No [id number] 1{spray Use 1 [facility] 50 5-19 10-18 } [place] in ity of mcg/actuati 00:00: 00:00 each [place] on nasal 00 :00 nostril 2 Medica l spray (two) Branch times daily. mometasone 2021- No [id number] 1{spray Use 1 [facility] 50 5-19 10-18 } [place] in ity of mcg/actuati 00:00: 00:00 each [place] on nasal 00 :00 nostril 2 Medica l spray (two) Branch times daily. mometasone 2021- No [id number] 1{spray Use 1 [facility] 50 5-19 10-18 } [place] in ity of mcg/actuati 00:00: 00:00 each [place] on nasal 00 :00 nostril 2 Medica l spray (two) Branch times daily. mometasone 2021- No [id number] 1{spray Use 1 [facility] 50 5-19 10-18 } [place] in ity of mcg/actuati 00:00: 00:00 each [place] on nasal 00 :00 nostril 2 Medica l spray (two) Branch times daily. cetirizine Yes [id number] 10mg Take 1 U nivers (ZYRTEC) 10 5-16 tablet by ity of mg tablet 00:00: mouth [place] 00 daily. [facility] Branch cetirizine Yes [id number] 10mg Take 1 U nivers (ZYRTEC) 10 5-16 tablet by ity of mg tablet 00:00: mouth [place] 00 daily. [facility] Branch cetirizine Yes [id number] 10mg Take 1 U nivers (ZYRTEC) 10 5-16 tablet by ity of mg tablet 00:00: mouth [place] 00 daily. [facility] Branch cetirizine Yes [id number] 10mg Take 1 U nivers (ZYRTEC) 10 5-16 tablet by ity of mg tablet 00:00: mouth [place] 00 daily. [facility] Branch cetirizine Yes [id number] 10mg Take 1 U nivers (ZYRTEC) 10 5-16 tablet by ity of mg tablet 00:00: mouth [place] 00 daily. [facility] Branch cetirizine Yes [id number] 10mg Take 1 U nivers (ZYRTEC) 10 5-16 tablet by ity of mg tablet 00:00: mouth [place] 00 daily. [facility] Branch cetirizine Yes [id number] 10mg Take 1 U nivers (ZYRTEC) 10 5-16 tablet by ity of mg tablet 00:00: mouth [place] 00 daily. [facility] Branch cetirizine Yes [id number] 10mg Take 1 U nivers (ZYRTEC) 10 5-16 tablet by ity of mg tablet 00:00: mouth [place] 00 daily. [facility] Branch cetirizine Yes [id number] 10mg Take 1 U nivers (ZYRTEC) 10 5-16 tablet by ity of mg tablet 00:00: mouth [place] 00 daily. [facility] Branch cetirizine Yes [id number] 10mg Take 1 U nivers (ZYRTEC) 10 5-16 tablet by ity of mg tablet 00:00: mouth [place] 00 daily. [facility] Branch cetirizine Yes [id number] 10mg Take 1 U nivers (ZYRTEC) 10 5-16 tablet by ity of mg tablet 00:00: mouth [place] 00 daily. Medical Branch cetirizine 2021- No [id number] 10mg Take 1 Univers (ZYRTEC) 10 5-16 10-18 tablet by it y of mg tablet 00:00: 00:00 mouth [place] 00 :00 daily. Medical Branch cetirizine 2- No [id number] 10mg Take 1 [facility] (ZYRTEC) 10 5-16 10-18 tablet by it y of mg tablet 00:00: 00:00 mouth [place] 00 :00 daily. Medical Branch cetirizine 2021- No [id number] 10mg Take 1 [facility] (ZYRTEC) 10 5-16 10-18 tablet by it y of mg tablet 00:00: 00:00 mouth [place] 00 :00 daily. Medical Branch cetirizine 2021- No [id number] 10mg Take 1 [facility] (ZYRTEC) 10 5-16 10-18 tablet by it y of mg tablet 00:00: 00:00 mouth [place] 00 :00 daily. Medical Branch cetirizine 2021- No [id number] 10mg Take 1 [facility] (ZYRTEC) 10 5-16 10-18 tablet by it y of mg tablet 00:00: 00:00 mouth [place] 00 :00 daily. Medical Branch DULoxetine 2-0 Yes [facility] 30 mg 5-09 ity of capsule 00:00: [place] 00 Medical Branch gabapentin 2022-0 Yes [facility] 300 mg 5-09 ity of capsule 00:00: 00 Medical Branch ondansetron 2-0 Yes Univer s 4 mg tablet 5-09 ity of 00:00: 00 Medical Branch DULoxetine 2022-0 Yes [facility] 30 mg 5-09 ity of capsule 00:00: [place] 00 Medical Branch gabapentin 2022-0 Yes [facility] 300 mg 5-09 ity of capsule 00:00: 00 Medical Branch ondansetron 2-0 Yes Univer s 4 mg tablet 5-09 ity of 00:00: [place] 00 Medical Branch DULoxetine 2022-0 Yes [facility] 30 mg 5-09 ity of capsule 00:00: [place] 00 Medical Branch gabapentin 2022-0 Yes [facility] 300 mg 5-09 ity of capsule 00:00: [place] 00 Medical Branch ondansetron 2022-0 Yes Univer s 4 mg tablet 5-09 ity of 00:00: [place] 00 Medical Branch DULoxetine 2022-0 Yes [facility] 30 mg 5-09 ity of capsule 00:00: [place] 00 Medical Branch gabapentin 2022-0 Yes [facility] 300 mg 5-09 ity of capsule 00:00: [place] 00 Medical Branch ondansetron 2022-0 Yes Univer s 4 mg tablet 5-09 ity of 00:00: [place] 00 Medical Branch DULoxetine 2022-0 Yes [facility] 30 mg 5-09 ity of capsule 00:00: [place] 00 Medical Branch gabapentin 2022-0 Yes [facility] 300 mg 5-09 ity of capsule 00:00: [place] 00 Medical Branch ondansetron 2022-0 Yes Univer s 4 mg tablet 5-09 ity of 00:00: [place] Medical Branch DULoxetine 2022-0 Yes [facility] 30 mg 5-09 ity of capsule 00:00: [place] 00 Medical Branch gabapentin 2022-0 Yes [facility] 300 mg 5-09 ity of capsule 00:00: [place] 00 Medical Branch ondansetron 2022-0 Yes Univer s 4 mg tablet 5-09 ity of 00:00: [place] [address] Medical Branch DULoxetine 2022-0 Yes Univers 30 mg 5-09 ity of capsule 00:00: [place] 00 Medical Branch gabapentin 2022-0 Yes [facility] 300 mg 5-09 ity of capsule 00:00: [place] 00 Medical Branch ondansetron 2022-0 Yes Univer s 4 mg tablet 5-09 ity of 00:00: [place] 00 Medical Branch DULoxetine 2022-0 Yes [facility] 30 mg 5-09 ity of capsule 00:00: [place] 00 Medical Branch gabapentin 2022-0 Yes [facility] 300 mg 5-09 ity of capsule 00:00: [place] 00 Medical Branch ondansetron 2022-0 Yes Univer s 4 mg tablet 5-09 ity of 00:00: [place] 00 Medical Branch DULoxetine 2022-0 Yes [facility] 30 mg 5-09 ity of capsule 00:00: [place] 00 Medical Branch gabapentin 2022-0 Yes [facility] 300 mg 5-09 ity of capsule 00:00: [place] 00 Medical Branch ondansetron 2022-0 Yes Univer s 4 mg tablet 5-09 ity of 00:00: [place] 00 Medical Branch DULoxetine 2022-0 Yes Univers 30 mg - ity of capsule 00:00: [place] 00 Medical Branch gabapentin 2022-0 Yes Univers 300 mg - ity of capsule 00:00: [place] 00 Medical Branch ondansetron 2022-0 Yes Univer s 4 mg tablet 09-18 ity of 00:00: [place] 00 Medical Branch DULoxetine 2022-0 Yes Univers 30 mg - ity of capsule 00:00: [place] 00 Medical Branch gabapentin 2022-0 Yes [facility] 300 mg 09-18 ity of capsule 00:00: [place] 00 Medical Branch ondansetron 2022-0 Yes Univer s 4 mg tablet 09-18 ity of 00:00: [place] 00 Medical Branch DULoxetine 2022-0 2022- No Univer s 30 mg 09-18 ity of capsule 00:00: 00:00 [place] 00 :00 Medical Branch gabapentin 2022-0 2022- No Univer s 300 mg 09-18 ity of capsule 00:00: 00:00 [place] 00 :00 Medical Branch ondansetron 2022-0 2022- No Unive rs 4 mg tablet 09-18 ity of 00:00: 00:00 [place] 00 :00 Medical Branch DULoxetine 2022-0 2022- No Univer s 30 mg 09-18 ity of capsule 00:00: 00:00 [place] 00 :00 Medical Branch gabapentin 2022-0 2022- No Univer s 300 mg 09-18 ity of capsule 00:00: 00:00 [place] 00 :00 Medical Branch ondansetron 2022-0 2022- No Unive rs 4 mg tablet 09-18 ity of 00:00: 00:00 [place] 00 :00 Medical Branch DULoxetine 2022-0 2022- No Univer s 30 mg 09-18- ity of capsule 00:00: 00:00 [place] 00 :00 Medical Branch gabapentin 2022-0 2022- No Univer s 300 mg 09-18- ity of capsule 00:00: 00:00 [place] 00 :00 Medical Branch ondansetron 2022-0 2022- No Unive rs 4 mg tablet 09-18- ity of 00:00: 00:00 [place] 00 :00 Medical Branch DULoxetine 2022-0 2022- No Univer s 30 mg 09-18 ity of capsule 00:00: 00:00 [place] 00 :00 Medical Branch gabapentin 2022-0 2022- No Univer s 300 mg 09-18 ity of capsule 00:00: 00:00 [place] 00 :00 Medical Branch ondansetron 2022-0 2022- No Unive rs 4 mg tablet 09-18 ity of 00:00: 00:00 [place] 00 :00 Medical Branch DULoxetine 2022-0 2022- No Univer s 30 mg 09-18 ity of capsule 00:00: 00:00 [place] 00 :00 Medical Branch gabapentin 2022-0 2022- No Univer s 300 mg 09-18 ity of capsule 00:00: 00:00 [place] 00 :00 Medical Branch ondansetron 2022-0 2- No Unive rs 4 mg tablet 09-18 ity of 00:00: 00:00 [place] 00 :00 Medical Branch amLODIPine 2022-0 Yes Univers 5 mg tablet 4-22 ity of 00:00: [place] [facility] Branch amLODIPine 2022-0 Yes 5mg Take 5 mg Un sushant 5 mg tablet 4-22 by mouth. ity of 00:00: [place] [facility] Branch amLODIPine 2022-0 Yes Univers 5 mg tablet 4-22 ity of 00:00: [place] [facility] amLODIPine 2022-0 Yes 5mg Take 5 mg Un sushant 5 mg tablet 4-22 by mouth. ity of 00:00: [place] [facility] amLODIPine 2022-0 Yes Univers 5 mg tablet 4-22 ity of 00:00: [place] [facility] amLODIPine 2022-0 Yes 5mg Take 5 mg Un sushant 5 mg tablet 4-22 by mouth. ity of 00:00: [place] [facility] Branch amLODIPine 2022-0 Yes Univers 5 mg tablet 4-22 ity of 00:00: [place] [address] Medical Branch amLODIPine 2022-0 Yes 5mg Take 5 mg Un sushant 5 mg tablet 4-22 by mouth. ity of 00:00: [place] [facility] amLODIPine 2022-0 Yes Univers 5 mg tablet 4-22 ity of 00:00: [place] [facility] amLODIPine 2022-0 Yes 5mg Take 5 mg Un sushant 5 mg tablet 4-22 by mouth. ity of 00:00: [place] [facility] amLODIPine 2022-0 Yes Univers 5 mg tablet 4-22 ity of 00:00: [place] [facility] amLODIPine 2022-0 Yes 5mg Take 5 mg Un sushant 5 mg tablet 4-22 by mouth. ity of 00:00: [place] [facility] amLODIPine 2022-0 Yes Univers 5 mg tablet 4-22 ity of 00:00: [place] [facility] amLODIPine 2022-0 Yes 5mg Take 5 mg Un sush[place] 5 mg tablet 4-22 by mouth. ity of 00:00: [place] [facility] amLODIPine 2022-0 Yes Univers 5 mg tablet 4-22 ity of 00:00: [place] [facility] amLODIPine 2022-0 Yes 5mg Take 5 mg Un sushant 5 mg tablet 4-22 by mouth. ity of 00:00: [place] [facility] amLODIPine 2022-0 Yes Univers 5 mg tablet 4-22 ity of 00:00: [place] [facility] amLODIPine 2022-0 Yes 5mg Take 5 mg Un [place] 5 mg tablet 4-22 by mouth. ity of 00:00: [place] [facility] amLODIPine 2-0 Yes Univers 5 mg tablet 4-22 ity of 00:00: [place] [facility] amLODIPine 2022-0 Yes 5mg Take 5 mg Un sushant 5 mg tablet 4-22 by mouth. ity of 00:00: [place] [facility] amLODIPine 2022-0 Yes Univers 5 mg tablet 4-22 ity of 00:00: [place] [facility] amLODIPine 2022-0 Yes 5mg Take 5 mg Un sushant 5 mg tablet 4-22 by mouth. ity of 00:00: [place] [facility] amLODIPine 2022-0 2022- No Univer s 5 mg tablet -02-27 ity of 00:00: 00:00 [place] 00 :00 Medical Branch amLODIPine 2022-0 2022- No 5mg Take 5 mg U nivers 5 mg tablet -22 02-27 by mouth. it y of 00:00: 00:00 [place] 00 :00 Medical Branch amLODIPine 2022-0 2022- No Univer s 5 mg tablet -22 02-27 ity of 00:00: 00:00 [place] 00 :00 Medical Branch amLODIPine 2-0 2022- No 5mg Take 5 mg U nivers 5 mg tablet 09-01 by mouth. it y of 00:00: 00:00 [place] 00 :00 Medical Branch amLODIPine 2022-0 2022- No Univer s 5 mg tablet 09-01 ity of 00:00: 00:00 [place] 00 :00 Medical Branch amLODIPine 2022-0 2022- No 5mg Take 5 mg U nivers 5 mg tablet 09-01 by mouth. it y of 00:00: 00:00 [place] 00 :00 Medical Branch amLODIPine 2022-0 2022- No Univer s 5 mg tablet 09-01 ity of 00:00: 00:00 [place] 00 :00 Medical Branch amLODIPine 2022-0 2022- No 5mg Take 5 mg U nivers 5 mg tablet 09-01 by mouth. it y of 00:00: 00:00 [place] 00 :00 Medical Branch amLODIPine 2022-0 2022- No Univer s 5 mg tablet 09-01 ity of 00:00: 00:00 [place] 00 :00 Medical Branch amLODIPine 2-0 2022- No 5mg Take 5 mg U nivers 5 mg tablet 09-01 by mouth. it y of 00:00: 00:00 [place] 00 :00 Medical Branch buPROPion 2021-0 Yes [...] 00:00: 04:59 mouth. [place] tablet 00 :00 [facility] Branch buPROPion 2022- No 150mg Take 150 Un sushnat XL 150 mg 4-20 04-21 mg by [...] mouth. [place] tablet 00 :00 Medical Branch proMETHazin 2021- No [id number] 25mg Take 1 Univers e 25 mg 4-05 05-03 tablet by ity of tablet 00:00: 00:00 mouth [place] 00 :00 every 6 Medical (six) Branch hours as needed for Nausea and Vomiting (N/V). traMADoL 50 2021- No [id number] 50mg Take 1 Uni vers mg tablet 4- 05-03 tablet by ity of 00:00: 00:00 mouth [place] 00 :00 every 6 Medical (six) Branch hours as needed (pain). Indication s: acute pain proMETHazin 2021-2021- No [id number] 25mg Take 1 Univers e 25 mg 4-05 05-03 tablet by ity of tablet 00:00: 00:00 mouth [place] 00 :00 every 6 Medical (six) Branch hours as needed for Nausea and Vomiting (N/V). traMADoL 50 2021- No [id number] 50mg Take 1 Uni vers mg tablet 4- 05-03 tablet by ity of 00:00: 00:00 mouth [place] 00 :00 every 6 Medical (six) Branch hours as needed (pain). Indication s: acute pain proMETHazin 2021- No [id number] 25mg Take 1 Univers e 25 mg 4-05 05-03 tablet by ity of tablet 00:00: 00:00 mouth [place] 00 :00 every 6 Medical (six) Branch hours as needed for Nausea and Vomiting (N/V). traMADoL 50 2021- No [id number] 50mg Take 1 Uni vers mg tablet 4-05 05-03 tablet by ity of 00:00: 00:00 mouth [place] 00 :00 every 6 Medical (six) Branch hours as needed (pain). Indication s: acute pain cyclobenzap 2021- No [id number] 10mg Take 1 Univers rine 10 mg 08-07 tablet by ity of tablet 00:00: 04:59 mouth 3 [place] 00 :00 (three) Medical times Branch daily for 14 days. ibuprofen 2021- No [id number] 800mg Take 1 [facility] 800 mg 08-07- tablet by ity of tablet 00:00: 04:59 mouth [place] 00 :00 every 6 Medical (six) Branch hours as needed for Pain (scale 1-3) for up to 14 days. diclofenac 2021- No Univer s 75 mg EC 08-01 ity of tablet 00:00: 00:00 [place] 00 :00 Medical Branch orphenadrin 2021- No Unive rs e 100 mg SR 08-01 ity of tablet 00:00: 00:00 [place] 00 :00 Medical Branch diclofenac 2021- No Univer s 75 mg EC 08-01- ity of tablet 00:00: 00:00 [place] 00 :00 Medical Branch orphenadrin 2021- No Unive rs e 100 mg SR 08-01- ity of tablet 00:00: 00:00 [place] 00 :00 Medical Branch divalproex 2021- No [id number] 125mg Take 1 [facility] 125 mg EC 07-21 tablet by ity of tablet 00:00: 00:00 mouth [place] 00 :00 every 12 Medical (twelve) Branch hours. divalproex 2021- No Univer s Sprinkles 07-21- ity of 125 mg 00:00: 00:00 [place] SPRINK 00 :00 Medical capsule Branch divalproex 2021- No [id number] 125mg Take 1 Univers 125 mg EC 07-21- tablet by ity of tablet 00:00: 00:00 mouth [place] 00 :00 every 12 Medical (twelve) Branch hours. divalproex 2021- No Univer s Sprinkles 07-21-03 ity of 125 mg 00:00: 00:00 [place] SPRINKLE 00 :00 Medical capsule Branch divalproex 2021- No [id number] 125mg Take 1 Univers 125 mg EC 07-21- tablet by ity of tablet 00:00: 00:00 mouth [place] 00 :00 every 12 Medical (twelve) Branch hours. ibuprofen 2021- No [id number] 600mg Take 1 [facility] 600 mg 07-17 9105 tablet by ity of tablet 00:00: 04:59 mouth [place] 00 :00 every 6 Medical (six) Branch hours as needed for Temp > 38.5 C for up to 14 days. acetaminoph 2021- No TAKE 1 Uni vers en-codeine 1-30 05-03 TABLET BY ity of 300-30 mg 00:00: 00:00 MOUTH [place] tablet 00 :00 EVERY 4 Medical HOURS Branch NEEDED FOR PAIN FOR 2 DAYS acetaminoph 2021- No TAKE 1 Uni vers en-codeine 1-30 05-03 TABLET BY ity of 300-30 mg 00:00: 00:00 MOUTH [place] tablet 00 :00 EVERY 4 Medical HOURS Branch NEEDED FOR PAIN FOR 2 DAYS acetaminoph 2021- No TAKE 1 Uni vers en-codeine 1-30 05-03 TABLET BY ity of 300-30 mg 00:00: 00:00 MOUTH [place] tablet 00 :00 EVERY 4 Medical HOURS Branch NEEDED FOR PAIN FOR 2 DAYS fluticasone 2021- No [id number] 2{puff} Inhale 2 Univers propionate 1-19 05-19 Puffs ity of 110 00:00: 00:00 every 12 [place] mcg/actuati 00 :00 (twelve) Medi yessi on inhaler hours. Branch fluticasone 2021- No [id number] 2{puff} Inhale 2 Univers propionate 1-19 05-19 Puffs ity of 110 00:00: 00:00 every 12 [place] mcg/actuati 00 :00 (twelve) Medi yessi on inhaler hours. Branch fluticasone 2021- No [id number] 2{puff} Inhale 2 Univers propionate 1-19 05-19 Puffs ity of 110 00:00: 00:00 every 12 [place] mcg/actuati 00 :00 (twelve) Medi yessi on inhaler hours. Branch fluticasone 2021- No [id number] 2{puff} Inhale 2 Univers propionate 1-19 05-19 Puffs ity of 110 00:00: 00:00 every 12 [place] mcg/actuati 00 :00 (twelve) Medi yessi on inhaler hours. Branch benzonatate 2021- No [id number] 100mg Take 1 Univers (TESSALON 113 05-16 capsule by [place]) 100 00:00: 00:00 mouth [place] mg capsule 00 :00 every 8 Medica l (eight) Branch hours as needed for Cough. benzonatate 2021- No [id number] 100mg Take 1 [facility] (TESSALON 113 05-16 capsule by [place]) 100 00:00: 00:00 mouth [place] mg capsule 00 :00 every 8 Medica l (eight) Branch hours as needed for Cough. benzonatate 2021- No [id number] 100mg Take 1 Univers (TESSALON 113 05-16 capsule by ankush REUBEN) 100 00:00: 00:00 mouth [place] mg capsule 00 :00 every 8 Medica l (eight) Branch hours as needed for Cough. benzonatate 2021- No [id number] 100mg Take 1 Univers (TESSALON 113 05-16 capsule by ankush REUBEN) 100 00:00: 00:00 mouth [place] mg capsule 00 :00 every 8 Medica l (eight) [...] ity of tablet 00:00: 00:00 mouth 2 [place] 00 :00 (two) Medical times Branch daily with meals. losartan 50 2020-05- No 50mg Take 1 Uni vers mg tablet 2-30 10-18 tablet by ity of 00:00: 00:00 mouth 2 [place] 00 :00 (two) Medical times Branch daily. carvediloL 2020-2021- No 25mg Take 1 Univ ers 25 mg 2-30 10-18 tablet by ity of tablet 00:00: 00:00 mouth 2 [place] 00 :00 (two) Medical times Branch daily with meals. losartan 50 2020-05- No 50mg Take 1 Uni vers mg tablet 2-30 10-18 tablet by ity of 00:00: 00:00 mouth 2 [place] 00 :00 (two) Medical times Branch daily. carvediloL 2020-05- No 25mg Take 1 Univ ers 25 mg 2-30 10-18 tablet by ity of tablet 00:00: 00:00 mouth 2 [place] 00 :00 (two) Medical times Branch daily with meals. losartan 50 2020-05- No 50mg Take 1 Uni vers mg tablet 2-30 10-18 tablet by ity of 00:00: 00:00 mouth 2 [place] 00 :00 (two) Medical times Branch daily. carvediloL 2020-2021- No 25mg Take 1 Univ ers 25 mg 2-30 10-18 tablet by ity of tablet 00:00: 00:00 mouth 2 [place] 00 :00 (two) Medical times Branch daily with meals. losartan 50 2020-05- No 50mg Take 1 Uni vers mg tablet 2-30 10-18 tablet by ity of 00:00: 00:00 mouth 2 [place] 00 :00 (two) Medical times Branch daily. carvediloL 2020-05- No 25mg Take 1 Univ ers 25 mg 2-30 10-18 tablet by ity of tablet 00:00: 00:00 mouth 2 [place] 00 :00 (two) Medical times Branch daily with meals. losartan 50 2020-05- No 50mg Take 1 Uni vers mg tablet 2-30 10-18 tablet by ity of 00:00: 00:00 mouth 2 [place] 00 :00 (two) Medical times Branch daily. carvediloL 2020-05- No 25mg Take 1 Univ ers 25 mg 2-30 10-18 tablet by ity of tablet 00:00: 00:00 mouth 2 [place] 00 :00 (two) Medical times Branch daily with meals. losartan 50 2020-05- No 50mg Take 1 Uni vers mg tablet 2-30 10-18 tablet by ity of 00:00: 00:00 mouth 2 [place] 00 :00 (two) Medical times Branch daily. carvediloL 2020-2021- No 25mg Take 1 Univ ers 25 mg 2-30 10-18 tablet by ity of tablet 00:00: 00:00 mouth 2 [place] 00 :00 (two) Medical times Branch daily with meals. losartan 50 2020-05- No 50mg Take 1 Uni vers mg tablet 2-30 10-18 tablet by ity of 00:00: 00:00 mouth 2 [place] 00 :00 (two) Medical times Branch daily. carvediloL 2020-05- No 25mg Take 1 Univ ers 25 mg 2-30 10-18 tablet by ity of tablet 00:00: 00:00 mouth 2 [place] 00 :00 (two) Medical times Branch daily with meals. losartan 50 2020-05- No 50mg Take 1 Uni vers mg tablet 2-30 10-18 tablet by ity of 00:00: 00:00 mouth 2 [place] 00 :00 (two) Medical times Branch daily. carvediloL 2020-05- No 25mg Take 1 Univ ers 25 mg 2-30 10-18 tablet by ity of tablet 00:00: 00:00 mouth 2 [place] 00 :00 (two) Medical times Branch daily with meals. losartan 50 2020-05- No 50mg Take 1 Uni vers mg tablet 2-30 10-18 tablet by ity of 00:00: 00:00 mouth 2 [place] 00 :00 (two) Medical times Branch daily. carvediloL 2020-05- No 25mg Take 1 Univ ers 25 mg 2-30 10-18 tablet by ity of tablet 00:00: 00:00 mouth 2 [place] 00 :00 (two) Medical times Branch daily with meals. losartan 50 2020-05- No 50mg Take 1 Uni vers mg tablet 2-30 10-18 tablet by ity of 00:00: 00:00 mouth 2 [place] 00 :00 (two) Medical times Branch daily. proMETHazin 2020-05- No Unive rs e 25 mg -03 ity of tablet 00:00: 00:00 [place] 00 :00 Medical Branch proMETHazin 2020-2021- No Unive rs e 25 mg 2-08 10-03 ity of tablet 00:00: 00:00 [place] 00 :00 Medical Branch proMETHazin 2020-2021- No Unive rs e 25 mg 2-08 10-03 ity of tablet 00:00: 00:00 [place] 00 :00 Medical Branch methocarbam 2020-05- No [id number] 500mg Take 1 Univers oL 07-03-13 tablet by ity of (ROBAXIN) 00:00: 00:00 mouth [place] 500 mg 00 :00 every 6 Medical tablet (six) Branch hours as needed (MUSCLE SPASM). vitamin 2020-05- No [id number] 500ug Take 1 U nivers B-12 05-18 tablet by ity of (VITAMIN 00:00: 00:00 mouth [place] B-12) 500 00 :00 daily. Medical mcg tablet Branch vitamin 2020-05- No [id number] 500ug Take 1 U nivers B-12 05-18 tablet by ity of (VITAMIN 00:00: 00:00 mouth [place] B-12) 500 00 :00 daily. Medical mcg tablet Branch vitamin 2020-05- No [id number] 500ug Take 1 U nivers B-12 05-18 tablet by ity of (VITAMIN 00:00: 00:00 mouth [place] B-12) 500 00 :00 daily. Medical mcg tablet Branch vitamin 2020-05- No [id number] 500ug Take 1 U nivers B-12 05-18 tablet by ity of (VITAMIN 00:00: 00:00 mouth [place] B-12) 500 00 :00 daily. Medical mcg tablet Branch vitamin 2020-05- No [id number] 500ug Take 1 U nivers B-12 05-18 tablet by ity of (VITAMIN 00:00: 00:00 mouth [place] B-12) 500 00 :00 daily. Medical mcg tablet Branch vitamin 2020-05- No [id number] 500ug Take 1 U nivers B-12 05-18 tablet by ity of (VITAMIN 00:00: 00:00 mouth [place] B-12) 500 00 :00 daily. Medical mcg tablet Branch vitamin 2020-05- No [id number] 500ug Take 1 U nivers B-12 05-18 tablet by ity of (VITAMIN 00:00: 00:00 mouth [place] B-12) 500 00 :00 daily. Medical mcg tablet Branch methylPREDN 2020-05- No [id number] Follow Univers ISolone 4 05-16 package ity of mg tablets 00:00: 00:00 directions [place] 00 :00 Medical Branch methylPREDN 2020-05- No [id number] Follow Univers ISolone 4 05-16 package ity of mg tablets 00:00: 00:00 directions 00 :00 Medical Branch methylPREDN 2020-05- No [id number] Follow Univers ISolone 4 05-16 package ity of mg tablets 00:00: 00:00 directions 00 :00 Medical Branch fluticasone 2021- No [id number] 2{puff} Inhale 2 Univers propion-chel 02-09-13 Puffs 2 ity of meteroL 00:00: 00:00 (two) [place] 115- 00 :00 times Medical mcg/actuati daily. Branch on inhaler Rinse mouth after each use. albuterol 2021- No [id number] 2.5mg Inhale 3 Univers 2.5 mg /3 02-09-13 mL every 6 ity of mL (0.083 00:00: 00:00 (six) [place] %) 00 :00 hours as Medical nebulizer needed for Bran ch solution Wheezing or Shortness of Breath. fluticasone 2021- No [id number] 2{puff} Inhale 2 Univers propion-chel 9-30 -13 Puffs 2 ity of meteroL 00:00: 00:00 (two) [place] 115- 00 :00 times Medical mcg/actuati daily. Branch on inhaler Rinse mouth after each use. albuterol 2021- No [id number] 2.5mg Inhale 3 Univers 2.5 mg /3 02-09-13 mL every 6 ity of mL (0.083 00:00: 00:00 (six) [place] %) 00 :00 hours as Medical nebulizer needed for Bran ch solution Wheezing or Shortness of Breath. fluticasone 2021- No [id number] 2{puff} Inhale 2 Univers propion-chel 9-30 -13 Puffs 2 ity of meteroL 00:00: 00:00 (two) [place] 115-21 00 :00 times Medical mcg/actuati daily. Branch on inhaler Rinse mouth after each use. albuterol 2021- No [id number] 2.5mg Inhale 3 Univers 2.5 mg /3 02-09-13 mL every 6 ity of mL (0.083 00:00: 00:00 (six) [place] %) 00 :00 hours as Medical nebulizer needed for Bran ch solution Wheezing or Shortness of Breath. fluticasone 2021- No [id number] 2{puff} Inhale 2 Univers propion-chel 02-09 01-13 Puffs 2 ity of meteroL 00:00: 00:00 (two) [place] 115-21 00 :00 times Medical mcg/actuati daily. Branch on inhaler Rinse mouth after each use. albuterol 2021- No [id number] 2.5mg Inhale 3 Univers 2.5 mg /3 02-0913 mL every 6 ity of mL (0.083 00:00: 00:00 (six) [place] %) 00 :00 hours as Medical nebulizer needed for Bran ch solution Wheezing or Shortness of Breath. methocarbam 2020- No [id number] 500mg Take 1 Univers oL 02-09 tablet by ity of (ROBAXIN) 00:00: 00:00 mouth [place] 500 mg 00 :00 every 6 Medical tablet (six) Branch hours as needed (MUSCLE SPASM). methocarbam 2020- No [id number] 500mg Take 1 Univers oL 02-09 tablet by ity of (ROBAXIN) 00:00: 00:00 mouth [place] 500 mg 00 :00 every 6 Medical tablet (six) Branch hours as needed (MUSCLE SPASM). bromphenira 2020- No [id number] 5mL Take 5 mL Univers mine-pseudo 01-31 by mouth 4 i ty of ephedrine-D 00:00: 00:00 (four) [place] as M (BROMFED 00 :00 times Medical DM) 2-30-10 daily as Bran ch mg/5 mL needed for syrup Cough. methylPREDN 2020- No [id number] Take by [facility] ISolone 01-20 mouth ity of (MEDROL, 00:00: 00:00 [place]-INSTRU [place] A[place]EL[place],) 4 mg 00 :00 CTIONS. Medica l tablets follow Branch package directions methylPREDN 2020- No [id number] Take by [facility] 01-20 mouth ity of (MEDROL, 00:00: 00:00 [place]-INSTRU [place] 4 mg 00 :00 CTIONS. Medica l tablets follow Branch package directions methylPREDN 2020- No [id number] Take by [facility] 01-20 mouth ity of (MEDROL, 00:00: 00:00 [place]-INSTRU [place] 4 mg 00 :00 CTIONS. Medica l tablets follow Branch package directions albuterol 2021- No [id number] 2{puff} Inhale 2 [place] [address] 01-12 [id number] Puffs ity of mcg/actuati 00:00: 00:00 every 4 [place] on inhaler 00 :00 (four) Medical hours as Branch needed for Wheezing or Shortness of Breath. albuterol 2021- No [id number] 2{puff} Inhale 2 [place] [address] 01-12 [id number] Puffs ity of mcg/actuati 00:00: 00:00 every 4 [place] on inhaler 00 :00 (four) Medical hours as Branch needed for Wheezing or Shortness of Breath. albuterol 2021- No [id number] 2{puff} Inhale 2 [place] [address] 01-12 [id number] Puffs ity of mcg/actuati 00:00: 00:00 every 4 [place] on inhaler 00 :00 (four) Medical hours as Branch needed for Wheezing or Shortness of Breath. albuterol 2021- No [id number] 2{puff} Inhale 2 [place] [address] 01-12 [id number] Puffs ity of mcg/actuati 00:00: 00:00 every 4 [place] on inhaler 00 :00 (four) Medical hours as Branch needed for Wheezing or Shortness of Breath. albuterol 2021- No [id number] 2{puff} Inhale 2 [place] [address] 01-12 [id number] Puffs ity of mcg/actuati 00:00: 00:00 every 4 [place] on inhaler 00 :00 (four) Medical hours as Branch needed for Wheezing or Shortness of Breath. albuterol 2021- No [id number] 2{puff} Inhale 2 Univers 90 01-12 [id number] Puffs ity of mcg/actuati 00:00: 00:00 every 4 [place] on inhaler 00 :00 (four) Medical hours as Branch needed for Wheezing or Shortness of Breath. albuterol 2021- No [id number] 2{puff} Inhale 2 Univers 90 01-12 [id number] Puffs ity of mcg/actuati 00:00: 00:00 every 4 [place] on inhaler 00 :00 (four) Medical hours as Branch needed for Wheezing or Shortness of Breath. benzonatate 2020- No [id number] 100mg Take 1 [facility] 100 mg 01-12 [id number] capsule by ity of capsule 00:00: 00:00 mouth 3 [place] 00 :00 (three) Medical times Branch daily as needed for Cough. benzonatate 2020- No [id number] 100mg Take 1 [facility] 100 mg 01-12 [id number] capsule by ity of capsule 00:00: 00:00 mouth 3 [place] 00 :00 (three) Medical times Branch daily as needed for Cough. benzonatate 2020- No [id number] 100mg Take 1 [facility] 100 mg 01-12 [id number] capsule by ity of capsule 00:00: 00:00 mouth 3 [place] 00 :00 (three) Medical times Branch daily as needed for Cough. losartan 50 2020-2020- No 50mg Take 1 Uni vers mg tablet 12-23 tablet by ity of 00:00: 00:00 mouth 2 [place] 00 :00 (two) Medical times Branch daily. losartan 50 2020-0 2020- No 50mg Take 1 Uni vers mg tablet 12-23 tablet by ity of 00:00: 00:00 mouth 2 [place] 00 :00 (two) Medical times Branch daily. losartan 50 2020-0 2020- No 50mg Take 1 Uni vers mg tablet 12-23 tablet by ity of 00:00: 00:00 mouth 2 [place] 00 :00 (two) Medical times Branch daily. topiramate 2021-0 2021- No 25mg Take 1 Univ ers 25 mg 11-2216 tablet by ity of tablet 00:00: 00:00 mouth 2 [place] 00 :00 (two) Medical times Branch daily. OXcarbazepi 2020- No Unive rs ne 150 mg 11-21 ity of tablet 00:00: 00:00 [place] 00 :00 Medical Branch OXcarbazepi 2020- No Unive rs ne 150 mg 11-2130 ity of tablet 00:00: 00:00 [place] 00 :00 Medical Branch OXcarbazepi 2020- No Unive rs ne 150 mg 11-2130 ity of tablet 00:00: 00:00 [place] 00 :00 Medical Branch OXcarbazepi 2020- No Unive rs ne 150 mg 11-21 ity of tablet 00:00: 00:00 [place] 00 :00 Medical Branch FLUoxetine No Univer s 40 mg 11-21 ity of capsule 00:00: 00:00 [place] 00 :00 Medical Branch traZODone 2020- No Univers 100 mg 11-21 ity of tablet 00:00: 00:00 [place] 00 :00 Medical Branch dicyclomine 2020- No [id number] 20mg Take 1 Univers 20 mg 10-20-16 tablet by ity of tablet 00:00: 00:00 mouth 4 [place] 00 :00 (four) Medical times Branch daily. proMETHazin 2020- No [id number] 25mg Take 1 Univers e 25 mg 10-20-16 tablet by ity of tablet 00:00: 00:00 mouth [place] 00 :00 every 6 Medical (six) Branch hours as needed for Nausea and Vomiting (N/V). acetaminoph 2020- No TAKE 2 Uni vers en-codeine 6-09 17-16 TABLETS BY it y of 300-30 mg 00:00: 00:00 MOUTH [place] tablet 00 :00 EVERY 6 Medical HOURS Branch NEEDED FOR PAIN oxybutynin 2020- No [id number] 10mg Take 1 Univers (DITROPAN 5-30 08-16 tablet by ity of XL) 10 mg 00:00: 00:00 mouth [place] 24 hr 00 :00 daily. Medical tablet Branch ondansetron 2020-0 2020- No [id number] 4mg Take 1 Univers (ZOFRAN 5-30 08-16 tablet by ity of ODT) 4 mg 00:00: 00:00 mouth [place] disintegrat 00 :00 every 8 Medic al ing tablet (eight) Branch hours as needed for Nausea and Vomiting (N/V). oxybutynin 2020-0 2020- No [id number] 10mg Take 1 Univers (DITROPAN 5-30 08-16 tablet by ity of XL) 10 mg 00:00: 00:00 mouth [place] 24 hr 00 :00 daily. Medical tablet Branch ondansetron 2020-0 2020- No [id number] 4mg Take 1 Univers (ZOFRAN 5-30 08-16 tablet by ity of ODT) 4 mg 00:00: 00:00 mouth [place] disintegrat 00 :00 every 8 Medic al ing tablet (eight) Branch hours as needed for Nausea and Vomiting (N/V). oxybutynin 2020-0 2020- No [id number] 10mg Take 1 Univers (DITROPAN 5-30 08-16 tablet by ity of XL) 10 mg 00:00: 00:00 mouth [place] 24 hr 00 :00 daily. Medical tablet Branch ondansetron 2020-2020- No [id number] 4mg Take 1 Univers (ZOFRAN 5-30 08-16 tablet by ity of ODT) 4 mg 00:00: 00:00 mouth [place] disintegrat 00 :00 every 8 Medic al ing tablet (eight) Branch hours as needed for Nausea and Vomiting (N/V). oxybutynin 2020-0 2020- No [id number] 10mg Take 1 Univers (DITROPAN 5-30 08-16 tablet by ity of XL) 10 mg 00:00: 00:00 mouth [place] 24 hr 00 :00 daily. Medical tablet Branch ondansetron 2020-0 2020- No [id number] 4mg Take 1 Univers (ZOFRAN 5-30 08-16 tablet by ity of ODT) 4 mg 00:00: 00:00 mouth [place] disintegrat 00 :00 every 8 Medic al ing tablet (eight) Branch hours as needed for Nausea and Vomiting (N/V). ciprofloxac 2020- No [id number] 500mg Take 1 Univers in HCl 500 5-30 -13 tablet by ity of mg tablet 00:00: 00:00 mouth 2 [place] 00 :00 (two) Medical times Branch daily. ciprofloxac 2020- No [id number] 500mg Take 1 [facility] in HCl 500 5-30 -13 tablet by ity of mg tablet 00:00: 00:00 mouth 2 [place] 00 :00 (two) Medical times Branch daily. ciprofloxac 2020- No [id number] 500mg Take 1 [facility] in HCl 500 5-30 -13 tablet by ity of mg tablet 00:00: 00:00 mouth 2 [place] 00 :00 (two) Medical times Branch daily. predniSONE 2020- No [id number] 20mg Take 1 [facility] 20 mg 5-25 -13 tablet by ity of tablet 00:00: 00:00 mouth [place] 00 :00 daily. Medical Days 1-2: Branch 3 pills (60 mg). Days 3-4: 2 pills (40 mg). Days 5-6: 1 pill (20 mg). Days 7-8: 1/2 pill (10 mg). Then stop predniSONE 2020- No [id number] 20mg Take 1 [facility] 20 mg 5-25 -13 tablet by ity of tablet 00:00: 00:00 mouth [place] 00 :00 daily. Medical Days 1-2: Branch 3 pills (60 mg). Days 3-4: 2 pills (40 mg). Days 5-6: 1 pill (20 mg). Days 7-8: 1/2 pill (10 mg). Then stop predniSONE 2020- No [id number] 20mg Take 1 Univers 20 mg 5-25 07-13 tablet by ity of tablet 00:00: 00:00 mouth [place] 00 :00 daily. Medical Days 1-2: Branch 3 pills (60 mg). Days 3-4: 2 pills (40 mg). Days 5-6: 1 pill (20 mg). Days 7-8: 1/2 pill (10 mg). Then stop predniSONE 2020- No [id number] 20mg Take 1 [facility] 20 mg 5-25 07-13 tablet by ity of tablet 00:00: 00:00 mouth [place] 00 :00 daily. Medical Days 1-2: Branch 3 pills (60 mg). Days 3-4: 2 pills (40 mg). Days 5-6: 1 pill (20 mg). Days 7-8: 1/2 pill (10 mg). Then stop predniSONE 2020- No [id number] 20mg Take 1 [facility] 20 mg 5-25 07-13 tablet by ity of tablet 00:00: 00:00 mouth [place] 00 :00 daily. Medical Days 1-2: Branch 3 pills (60 mg). Days 3-4: 2 pills (40 mg). Days 5-6: 1 pill (20 mg). Days 7-8: 1/2 pill (10 mg). Then stop predniSONE 2020- No [id number] 20mg Take 1 [facility] 20 mg 5-25 07-13 tablet by ity of tablet 00:00: 00:00 mouth [place] 00 :00 daily. Medical Days 1-2: Branch 3 pills (60 mg). Days 3-4: 2 pills (40 mg). Days 5-6: 1 pill (20 mg). Days 7-8: 1/2 pill (10 mg). Then stop predniSONE 2020- No [id number] 20mg Take 1 [facility] 20 mg 5-25 07-13 tablet by ity of tablet 00:00: 00:00 mouth [place] 00 :00 daily. Medical Days 1-2: Branch 3 pills (60 mg). Days 3-4: 2 pills (40 mg). Days 5-6: 1 pill (20 mg). Days 7-8: 1/2 pill (10 mg). Then stop predniSONE 2020- No [id number] 20mg Take 1 [facility] 20 mg 5-25 07-13 tablet by ity of tablet 00:00: 00:00 mouth [place] 00 :00 daily. Medical Days 1-2: Branch 3 pills (60 mg). Days 3-4: 2 pills (40 mg). Days 5-6: 1 pill (20 mg). Days 7-8: 1/2 pill (10 mg). Then stop predniSONE 2020- No [id number] 20mg Take 1 [facility] 20 mg -11-22 tablet by ity of tablet 00:00: 00:00 mouth [place] 00 :00 daily. Medical Days 1-2: Branch 3 pills (60 mg). Days 3-4: 2 pills (40 mg). Days 5-6: 1 pill (20 mg). Days 7-8: 1/2 pill (10 mg). Then stop predniSONE 2020- No [id number] 20mg Take 1 [facility] 20 mg 5-25 - tablet by ity of tablet 00:00: 00:00 mouth [place] 00 :00 daily. Medical Days 1-2: Branch 3 pills (60 mg). Days 3-4: 2 pills (40 mg). Days 5-6: 1 pill (20 mg). Days 7-8: 1/2 pill (10 mg). Then stop mupirocin 2 2020- No [id number] Apply to Univers % ointment 5-20 - both ity of 00:00: 00:00 nostrils [place] 00 :00 at [facility] mupirocin 2 2020- No [id number] Apply to Univers % ointment 5-20 - both ity of 00:00: 00:00 nostrils [place] 00 :00 at [facility] mupirocin 2 2020- No [id number] Apply to Univers % ointment 5-20 - both ity of 00:00: 00:00 nostrils [place] 00 :00 at [facility] mupirocin 2 2020- No [id number] Apply to Univers % ointment 5-20 - both ity of 00:00: 00:00 nostrils [place] 00 :00 at [facility] mupirocin 2 2020- No [id number] Apply to Univers % ointment 5-20 - both ity of 00:00: 00:00 nostrils [place] 00 :00 at [facility] mupirocin 2 2020- No [id number] Apply to Univers % ointment 5-20 - both ity of 00:00: 00:00 [facility]rils [place] [facility] 2020- No [id number] Apply to Univers % ointment 5-20 08-16 both ity of 00:00: 00:00 nostrils [place] 00 :00 at bedtime Medical Branch mupirocin 2 2020- No [id number] Apply to Univers % ointment 5-20 08-16 both ity of 00:00: 00:00 nostrils [place] 00 :00 at bedtime Medical Branch mupirocin 2 2020- No [id number] Apply to Univers % ointment 5-20 08-16 both ity of 00:00: 00:00 nostrils [place] 00 :00 at bedtime Medical Branch mupirocin 2 2020- No [id number] Apply to Univers % ointment 5-20 08-16 both ity of 00:00: 00:00 nostrils [place] 00 :00 at bedtime Medical Branch mupirocin 2 2020- No [id number] Apply to [facility] % ointment 5-20 08-16 both it[facility] of 00:00: 00:00 [facility]rils [place] [facility] naproxen 2020- No [id number] 550mg Take 1 U nivers sodium 09-28-16 tablet by ity of (ANAPROX 00:00: 00:00 mouth 2 [place] DS) 550 mg 00 :00 (two) Medical tablet times Branch daily with meals. naproxen 2020- No [id number] 550mg Take 1 U nivers sodium 09-28-16 tablet by ity of (ANAPROX 00:00: 00:00 mouth 2 [place] DS) 550 mg 00 :00 (two) Medical tablet times Branch daily with meals. naproxen 2020- No [id number] 550mg Take 1 U nivers sodium -29 12-16 tablet by ity of (ANAPROX 00:00: 00:00 mouth 2 [place] DS) 550 mg 00 :00 (two) Medical tablet times Branch daily with meals. naproxen 2020- No [id number] 550mg Take 1 U nivers sodium 09-28-16 tablet by ity of (ANAPROX 00:00: 00:00 mouth 2 [place] DS) 550 mg 00 :00 (two) Medical tablet times Branch daily with meals. naproxen No [id number] 550mg Take 1 U nivers sodium 5-19 08-16 tablet by ity of (ANAPROX 00:00: 00:00 mouth 2 [place] DS) 550 mg 00 :00 (two) Medical tablet times Branch daily with meals. naproxen No [id number] 550mg Take 1 U nivers sodium 5-19 08-16 tablet by ity of (ANAPROX 00:00: 00:00 mouth 2 [place] DS) 550 mg 00 :00 (two) Medical tablet times Branch daily with meals. naproxen No [id number] 550mg Take 1 U nivers sodium 5-19 08-16 tablet by ity of (ANAPROX 00:00: 00:00 mouth 2 [place] DS) 550 mg 00 :00 (two) Medical tablet times Branch daily with meals. naproxen No [id number] 550mg Take 1 U nivers sodium 5-19 08-16 tablet by ity of (ANAPROX 00:00: 00:00 mouth 2 [place] DS) 550 mg 00 :00 (two) Medical tablet times Branch daily with meals. naproxen No [id number] 550mg Take 1 U nivers sodium 5-19 08-16 tablet by ity of (ANAPROX 00:00: 00:00 mouth 2 [place] DS) 550 mg 00 :00 (two) Medical tablet times Branch daily with meals. naproxen 2020- No [id number] 550mg Take 1 U nivers sodium 5-19 08-16 tablet by ity of (ANAPROX 00:00: 00:00 mouth 2 [place] DS) 550 mg 00 :00 (two) Medical tablet times Branch daily with meals. naproxen 2020- No [id number] 550mg Take 1 U nivers sodium 5-19 08-16 tablet by ity of (ANAPROX 00:00: 00:00 mouth 2 [place] DS) 550 mg 00 :00 (two) Medical tablet times Branch daily with meals. losartan 25 2021-0 2021- No 25mg Take 1 [facility] vers mg tablet 09-16 tablet by ity of 00:00: 00:00 mouth 2 [place] 00 :00 (two) Medical times Branch daily. nadoloL 2020- No [id number] Please [facility] mg tablet 09-16 take ity of 00:00: 00:00 Nadalol 40 [place] 00 :00 mg QA Medical Branch losartan 25 2020- No 25mg Take 1 [facility] vers mg tablet 09-16 tablet by ity of 00:00: 00:00 mouth 2 [place] 00 :00 (two) Medical times Branch daily. nadoloL 2020- No [id number] Please [facility] mg tablet 09-16 take ity of 00:00: 00:00 Nadalol 40 [place] 00 :00 mg QA Medical Branch losartan 25 2020- No 25mg Take 1 [facility] vers mg tablet 09-16 tablet by ity of 00:00: 00:00 mouth 2 [place] 00 :00 (two) Medical times Branch daily. nadoloL 2020- No [id number] Please [facility] mg tablet 09-16 take ity of 00:00: 00:00 Nadalol 40 [place] 00 :00 mg QA Medical Branch losartan 25 2020- No 25mg Take 1 [facility] vers mg tablet 09-16 tablet by ity of 00:00: 00:00 mouth 2 [place] 00 :00 (two) Medical times Branch daily. nadoloL 2020- No [id number] Please [facility] mg tablet 09-16 take ity of 00:00: 00:00 Nadalol 40 [place] 00 :00 mg QA Medical Branch losartan 25 2020- No 25mg Take 1 [facility] vers mg tablet 09-16 tablet by ity of 00:00: 00:00 mouth 2 [place] 00 :00 (two) Medical times Branch daily. nadoloL 2020- No [id number] Please [facility] mg tablet 09-16 take ity of 00:00: 00:00 Nadalol 40 [place] 00 :00 mg QA Medical Branch losartan 25 2020- No 25mg Take 1 [facility] vers mg tablet 5-07 08-12 tablet by ity of 00:00: 00:00 mouth 2 [place] 00 :00 (two) Medical times Branch daily. nadoloL 2020- No [id number] Please [facility] mg tablet 09-16 take ity of 00:00: 00:00 Nadalol 40 [place] 00 :00 mg QA Medical Branch losartan 25 2020- No 25mg Take 1 [facility] vers mg tablet 09-16 tablet by ity of 00:00: 00:00 mouth 2 [place] 00 :00 (two) Medical times Branch daily. nadoloL 2020- No [id number] Please [facility] mg tablet 09-16 take ity of 00:00: 00:00 Nadalol 40 [place] 00 :00 mg QA Medical Branch losartan 25 2020- No 25mg Take 1 [facility] vers mg tablet 09-16 tablet by ity of 00:00: 00:00 mouth 2 [place] 00 :00 (two) Medical times Branch daily. nadoloL 2020- No [id number] Please [facility] mg tablet 09-16 take ity of 00:00: 00:00 Nadalol 40 [place] 00 :00 mg QA Medical Branch losartan 25 2020- No 25mg Take 1 [facility] vers mg tablet 09-16 tablet by ity of 00:00: 00:00 mouth 2 [place] 00 :00 (two) Medical times Branch daily. nadoloL 2020- No [id number] Please [facility] mg tablet 09-16 take ity of 00:00: 00:00 Nadalol 40 [place] 00 :00 mg QA Medical Branch losartan 25 2020- No 25mg Take 1 [facility] vers mg tablet 09-16 tablet by ity of 00:00: 00:00 mouth 2 [place] 00 :00 (two) Medical times Branch daily. nadoloL 2020- No [id number] Please [facility] mg tablet 09-16 take ity of 00:00: 00:00 Nadalol 40 [place] 00 :00 mg QAM Medical Branch losartan 25 2020- No 25mg Take 1 Uni vers mg tablet 09-16 tablet by ity of 00:00: 00:00 mouth 2 [place] 00 :00 (two) Medical times Branch daily. nadoloL 20 2020- No [id number] Please [facility] mg tablet 09-16 take ity of 00:00: 00:00 Nadalol 40 [place] 00 :00 mg QAM Medical Branch LOESTRIN FE 2020- No [id number] 1{tbl} Take 1 [facility] (LOESTRIN 4-27 -30 tablet by ity of FE 06/01) 1 00:00: 00:00 mouth [place] mg-20 mcg 00 :00 daily. Medical (21)/75 mg Branch (7) tablet LOESTRIN FE 2020- No [id number] 1{tbl} Take 1 [facility] (LOESTRIN 4-27 -30 tablet by ity of FE 06/01) 1 00:00: 00:00 mouth [place] mg-20 mcg 00 :00 daily. Medical (21)/75 mg Branch (7) tablet LOESTRIN FE 2020- No [id number] 1{tbl} Take 1 [facility] (LOESTRIN 4-27 -30 tablet by ity of FE 06/01) 1 00:00: 00:00 mouth [place] mg-20 mcg 00 :00 daily. Medical (21)/75 mg Branch (7) tablet LOESTRIN FE 2020- No [id number] 1{tbl} Take 1 [facility] (LOESTRIN 4-27 -30 tablet by ity of FE 06/01) 1 00:00: 00:00 mouth [place] mg-20 mcg 00 :00 daily. Medical (21)/75 mg Branch (7) tablet LOESTRIN FE 2020- No [id number] 1{tbl} Take 1 [facility] (LOESTRIN 4-27 -30 tablet by ity of FE 06/01) 1 00:00: 00:00 mouth [place] mg-20 mcg 00 :00 daily. Medical (21)/75 mg Branch (7) tablet LOESTRIN FE 2020- No [id number] 1{tbl} Take 1 [facility] (LOESTRIN 4-27 -30 tablet by ity of FE 06/01) 1 00:00: 00:00 mouth [place] mg-20 mcg 00 :00 daily. Medical (21)/75 mg Branch (7) tablet LOESTRIN FE 2020-0 2020- No [id number] 1{tbl} Take 1 [facility] (LOESTRIN 4-27 -30 tablet by ity of FE 06/01) 1 00:00: 00:00 mouth [place] mg-20 mcg 00 :00 daily. Medical (21)/75 mg Branch (7) tablet LOESTRIN FE 2020-0 2020- No [id number] 1{tbl} Take 1 [facility] (LOESTRIN 4-27 -30 tablet by ity of FE 06/01) 1 00:00: 00:00 mouth [place] mg-20 mcg 00 :00 daily. Medical (21)/75 mg Branch (7) tablet LOESTRIN FE 2020-0 2020- No [id number] 1{tbl} Take 1 [facility] (LOESTRIN 4-27 -30 tablet by ity of FE 06/01) 1 00:00: 00:00 mouth [place] mg-20 mcg 00 :00 daily. Medical (21)/75 mg Branch (7) tablet LOESTRIN FE 2020-0 2020- No [id number] 1{tbl} Take 1 [facility] (LOESTRIN 4-27 -30 tablet by ity of FE 06/01) 1 00:00: 00:00 mouth [place] mg-20 mcg 00 :00 daily. Medical (21)/75 mg Branch (7) tablet LOESTRIN FE 2020-0 2020- No [id number] 1{tbl} Take 1 [facility] (LOESTRIN 4-27 -30 tablet by ity of FE 06/01) 1 00:00: 00:00 mouth [place] mg-20 mcg 00 :00 daily. Medical (21)/75 mg Branch (7) tablet LOESTRIN FE 2020-0 2020- No [id number] 1{tbl} Take 1 [facility] (LOESTRIN 4-27 -30 tablet by ity of FE 06/01) 1 00:00: 00:00 mouth [place] mg-20 mcg 00 :00 daily. Medical (21)/75 mg Branch (7) tablet LOESTRIN FE 2020-0 2020- No [id number] 1{tbl} Take 1 [facility] (LOESTRIN 4-27 -30 tablet by ity of FE 06/01) 1 00:00: 00:00 mouth [place] mg-20 mcg 00 :00 daily. Medical (21)/75 mg Branch (7) tablet LOESTRIN FE 2020- No [id number] 1{tbl} Take 1 [facility] (LOESTRIN 4-27 09-30 tablet by ity of FE 06/01) 1 00:00: 00:00 mouth [place] mg-20 mcg 00 :00 daily. Medical (21)/75 mg Branch (7) tablet FLUoxetine 2020- No [id number] 20mg Take 1 [facility] 20 mg 4-27 07-13 capsule by ity of capsule 00:00: 00:00 mouth [place] 00 :00 daily. [facility] Branch traZODone 2020- No [id number] 50mg Take 1 Univers 50 mg 4-27 07-13 tablet by ity of tablet 00:00: 00:00 mouth at [place] 00 :00 bedtime. [facility] Branch FLUoxetine 2020- No [id number] 20mg Take 1 [facility] 20 mg 4-27 07-13 capsule by ity of capsule 00:00: 00:00 mouth [place] 00 :00 daily. [facility] Branch traZODone 2020- No [id number] 50mg Take 1 Univers 50 mg 4-27 07-13 tablet by ity of tablet 00:00: 00:00 mouth at [place] 00 :00 bedtime. [facility] Branch FLUoxetine 2020- No [id number] 20mg Take 1 Univers 20 mg 4-27 07-13 capsule by ity of capsule 00:00: 00:00 mouth [place] 00 :00 daily. [facility] Branch traZODone 2020- No [id number] 50mg Take 1 Univers 50 mg 4-27 07-13 tablet by ity of tablet 00:00: 00:00 mouth at [place] 00 :00 bedtime. [facility] Branch FLUoxetine 2020- No [id number] 20mg Take 1 Univers 20 mg 4-27 07-13 capsule by ity of capsule 00:00: 00:00 mouth [place] 00 :00 daily. [facility] Branch traZODone 2020- No [id number] 50mg Take 1 Univers 50 mg 4-27 07-13 tablet by ity of tablet 00:00: 00:00 mouth at [place] 00 :00 bedtime. [facility] Branch FLUoxetine 2020- No [id number] 20mg Take 1 Univers 20 mg 4-27 07-13 capsule by ity of capsule 00:00: 00:00 mouth [place] 00 :00 daily. [facility] Branch traZODone 2020- No [id number] 50mg Take 1 [facility] 50 mg 4-27 07-13 tablet by ity of tablet 00:00: 00:00 mouth at [place] 00 :00 bedtime. [facility] Branch FLUoxetine 2020- No [id number] 20mg Take 1 [facility] 20 mg 4-27 07-13 capsule by ity of capsule 00:00: 00:00 mouth [place] 00 :00 daily. [facility] traZODone 2020- No [id number] 50mg Take 1 Univers 50 mg 4-27 07-13 tablet by ity of tablet 00:00: 00:00 mouth at [place] 00 :00 bedtime. [facility] FLUoxetine 2020- No [id number] 20mg Take 1 [facility] 20 mg 4-27 07-13 capsule by ity of capsule 00:00: 00:00 mouth [place] 00 :00 daily. [facility] traZODone 2020- No [id number] 50mg Take 1 Univers 50 mg 4-27 07-13 tablet by ity of tablet 00:00: 00:00 mouth at [place] 00 :00 bedtime. [facility] FLUoxetine 2020- No [id number] 20mg Take 1 [facility] 20 mg 4-27 07-13 capsule by ity of capsule 00:00: 00:00 mouth [place] 00 :00 daily. [facility] traZODone 2020- No [id number] 50mg Take 1 [facility] 50 mg 4-27 07-13 tablet by ity of tablet 00:00: 00:00 mouth at [place] 00 :00 bedtime. [facility] FLUoxetine 2020- No [id number] 20mg Take 1 [facility] 20 mg 4-27 07-13 capsule by ity of capsule 00:00: 00:00 mouth [place] 00 :00 daily. [facility] traZODone 2020- No [id number] 50mg Take 1 [facility] 50 mg 4-27 07-13 tablet by ity of tablet 00:00: 00:00 mouth at [place] 00 :00 bedtime. Medical Branch FLUoxetine 2020- No [id number] 20mg Take 1 [facility] 20 mg 09-06 capsule by ity of capsule 00:00: 00:00 mouth [place] 00 :00 daily. Medical Branch traZODone 2020- No [id number] 50mg Take 1 [facility] 50 mg 09-06 tablet by ity of tablet 00:00: 00:00 mouth at [place] 00 :00 bedtime. Medical Branch nadoloL 20 2020- No [id number] Please [facility] mg tablet 08-31 take ity of 00:00: 00:00 Nadalol 40 [place] 00 :00 mg QAM and Medical 20 mg QPM Branch methocarbam 2020- No [id number] 500mg Take 1 Univers oL 08-18 tablet by ity of (ROBAXIN) 00:00: 00:00 mouth [place] 500 mg 00 :00 every 6 Medical tablet (six) Branch hours as needed (MUSCLE SPASM). traMADoL 2020- No [id number] 50mg Take 1 Univer s (ULTRAM) 50 08-18 tablet by it y of mg tablet 00:00: 00:00 mouth [place] 00 :00 every 6 Medical (six) Branch hours as needed for Pain (scale 7-10). Indication s: acute pain ibuprofen 2020- No TAKE 1 Unive rs 800 mg -08 17- TABLET BY ity of tablet 00:00: 00:00 MOUTH [place] 00 :00 EVERY 12 Medical HOURS Branch NEEDED FOR PAIN ibuprofen 2020- No TAKE 1 Unive rs 800 mg -08 17- TABLET BY ity of tablet 00:00: 00:00 MOUTH [place] 00 :00 EVERY 12 Medical HOURS Branch NEEDED FOR PAIN ibuprofen 2020- No TAKE 1 Unive rs 800 mg -08 17- TABLET BY ity of tablet 00:00: 00:00 MOUTH [place] 00 :00 EVERY 12 Medical HOURS Branch NEEDED FOR PAIN ibuprofen 2020- No TAKE 1 Unive rs 800 mg -08 17- TABLET BY ity of tablet 00:00: 00:00 MOUTH [place] 00 :00 EVERY 12 Medical HOURS Branch NEEDED FOR PAIN ibuprofen 2020- No TAKE 1 Unive rs 800 mg 08-14- TABLET BY ity of tablet 00:00: 00:00 MOUTH [place] 00 :00 EVERY 12 Medical HOURS Branch NEEDED FOR PAIN ibuprofen 2020- No TAKE 1 Unive rs 800 mg 4-08 17-13 TABLET BY ity of tablet 00:00: 00:00 MOUTH [place] 00 :00 EVERY 12 Medical HOURS Branch NEEDED FOR PAIN ibuprofen 2020- No TAKE 1 Unive rs 800 mg 08-14- TABLET BY ity of tablet 00:00: 00:00 MOUTH [place] 00 :00 EVERY 12 Medical HOURS Branch NEEDED FOR PAIN ibuprofen 2020- No TAKE 1 Unive rs 800 mg 08-14- TABLET BY ity of tablet 00:00: 00:00 MOUTH [place] 00 :00 EVERY 12 Medical HOURS Branch NEEDED FOR PAIN ibuprofen 2020- No TAKE 1 Unive rs 800 mg 08-14 TABLET BY ity of tablet 00:00: 00:00 MOUTH [place] 00 :00 EVERY 12 Medical HOURS Branch NEEDED FOR PAIN ibuprofen 2020- No TAKE 1 Unive rs 800 mg 08-14 TABLET BY ity of tablet 00:00: 00:00 MOUTH [place] 00 :00 EVERY 12 Medical HOURS Branch NEEDED FOR PAIN ondansetron 2020- No [id number] 4mg Take 1 Univers (ZOFRAN 08-01 [id number] tablet by ity of ODT) 4 mg 00:00: 00:00 mouth [place] disintegrat 00 :00 every 8 Medic al ing tablet (eight) Branch hours as needed for Nausea and Vomiting (N/V). ketorolac 2020- No [id number] 10mg Take 1 Univers 10 mg 08-01 [id number] tablet by ity of tablet 00:00: 00:00 mouth [place] 00 :00 every 6 Medical (six) Branch hours as needed for Pain (scale 4-6). ciprofloxac 2020- No [id number] 250mg Take 1 [facility] in HCl 250 08-01 [id number] tablet by i ty of mg tablet 00:00: 00:00 mouth 2 [place] 00 :00 (two) Medical times Branch daily. lidocaine 5 2020- No [id number] 1{patch Apply 1 Univers % (700 3-12 05-21 } Patch to ity of mg/patch) 00:00: 00:00 area(s) [place] patch 00 :00 every 24 Medical (twenty-fo Branch ur) hours as needed for Localized pain. topiramate 2020-0 2021- No 25mg Take 1 Univ ers 25 mg 1-05 07-13 tablet by ity of tablet 00:00: 00:00 mouth 2 [place] 00 :00 (two) Medical times Branch daily. topiramate 2020-0 2021- No 25mg Take 1 Univ ers 25 mg 1-05 07-13 tablet by ity of tablet 00:00: 00:00 mouth 2 [place] 00 :00 (two) Medical times Branch daily. topiramate 2020-0 2021- No 25mg Take 1 Univ ers 25 mg 1-05 07-13 tablet by ity of tablet 00:00: 00:00 mouth 2 [place] 00 :00 (two) Medical times Branch daily. topiramate 2020-0 2021- No 25mg Take 1 Univ ers 25 mg 1-05 07-13 tablet by ity of tablet 00:00: 00:00 mouth 2 [place] 00 :00 (two) Medical times Branch daily. topiramate 1-0 2021- No 25mg Take 1 Univ ers 25 mg 1-05 07-13 tablet by ity of tablet 00:00: 00:00 mouth 2 [place] 00 :00 (two) Medical times Branch daily. topiramate 2020-0 2021- No 25mg Take 1 Univ ers 25 mg 1-05 07-13 tablet by ity of tablet 00:00: 00:00 mouth 2 [place] 00 :00 (two) Medical times Branch daily. topiramate 1-0 2021- No 25mg Take 1 Univ ers 25 mg 1-05 07-13 tablet by ity of tablet 00:00: 00:00 mouth 2 [place] 00 :00 (two) Medical times Branch daily. topiramate 1-0 2021- No 25mg Take 1 Univ ers 25 mg 1-05 07-13 tablet by ity of tablet 00:00: 00:00 mouth 2 [place] 00 :00 (two) Medical times Branch daily. topiramate 2021-0 2021- No 25mg Take 1 Univ ers 25 mg 05-17- tablet by ity of tablet 00:00: 00:00 mouth 2 [place] 00 :00 (two) Medical times Branch daily. topiramate 2020- No 25mg Take 1 Univ ers 25 mg 05-17- tablet by ity of tablet 00:00: 00:00 mouth 2 [place] 00 :00 (two) Medical times Branch daily. topiramate 2020- No 25mg Take 1 Univ ers 25 mg 05-17- tablet by ity of tablet 00:00: 00:00 mouth 2 [place] 00 :00 (two) Medical times Branch daily. topiramate 2020- No 25mg Take 1 Univ ers 25 mg 05-17- tablet by ity of tablet 00:00: 00:00 mouth 2 [place] 00 :00 (two) Medical times Branch daily. topiramate 2020- No 25mg Take 1 Univ ers 25 mg 05-17 tablet by ity of tablet 00:00: 00:00 mouth 2 [place] 00 :00 (two) Medical times Branch daily. metoprolol 2019-05 No [id number] 12.5mg Take 0.5 Univers succinate 07-03 tablets by ity of XL 25 mg 24 00:00: 00:00 mouth 2 [place] hr tablet 00 :00 (two) Medical times Branch daily for 90 days. metoprolol 2019-05 No [id number] 12.5mg Take 0.5 [facility] succinate 07-03- tablets by ity of XL 25 mg 24 00:00: 00:00 mouth 2 [place] hr tablet 00 :00 (two) Medical times Branch daily for 90 days. metoprolol 2019-05 No [id number] 12.5mg Take 0.5 [facility] succinate 07-03- tablets by ity of XL 25 mg 24 00:00: 00:00 mouth 2 [place] hr tablet 00 :00 (two) Medical times Branch daily for 90 days. FLUoxetine 2019-05- No 20mg Take 20 mg Univers 20 mg 06-14 by mouth ity of capsule 00:00: 00:00 daily. [place] 00 :00 Medical Branch FLUoxetine 2019-05 No 20mg Take 20 mg Univers 20 mg 06-14- by mouth ity of capsule 00:00: 00:00 daily. [place] 00 :00 Medical Branch norgestimat 2019- No [id number] 1{tbl} Take 1 Univers e-ethinyl 11-17- tablet by ity of estradiol 00:00: 00:00 mouth [place] 0.25-35 00 :00 daily. Medical mg-mcg per Branch tablet buPROPion 2019- No [id number] 150mg Take 1 [facility] XL 08-12- tablet by ity of (WELLBUTRIN 00:00: 00:00 mouth [place] XL) 150 mg 00 :00 daily. Medical 24 hr Branch tablet acetaminoph 2019- No [id number] 650mg Take 2 [facility] en 325 mg 07-22-25 tablets by ity of tablet 00:00: 00:00 mouth [place] 00 :00 every 6 Medical (six) Branch hours as needed for Pain (scale 1-3) or Pain (scale 4-6). 2019- No [id number] 1{tbl} Take 1 [facility] vitamin 07-22-25 tablet by ity of w/FA tablet 00:00: 00:00 mouth [place] 00 :00 daily. Medical Branch docusate 2019- No [id number] 240mg Take 1 U nivers calcium 240 07-22- capsule by i ty of mg capsule 00:00: 00:00 mouth once [place] 00 :00 daily as Medical needed for Branch Constipati on. ferrous 2019- No [id number] 325mg Take 1 Un sushant sulfate 325 07-22-25 tablet by it y of mg (65 mg 00:00: 00:00 mouth 2 [place] iron) 00 :00 (two) Medical tablet times Branch daily. ibuprofen 2019- No [id number] 600mg Take 1 [facility] 600 mg 07-22-25 tablet by ity of tablet 00:00: 00:00 mouth [place] 00 :00 every 6 Medical (six) Branch hours as needed (Pain). Take with food or milk. ALBUTEROL 2019- No [id number] INHALE 2 Univers 90 1-14 12-20 103 PUFFS BY ity of mcg/actuati 00:00: 00:00 MOUTH [place] on inhaler 00 :00 EVERY 6 Medica l HOURS Branch NEEDED FOR WHEEZING FOR SHORTNESS OF BREATH buPROPion 2020- No [id number] 150mg Take 1 [facility] SR 05-21 tablet by ity of (WELLBUTRIN 00:00: 00:00 mouth 2 [place] SR) 150 mg 00 :00 (two) Medical SR tablet times Branch daily. busPIRone 2020- No [id number] 10mg Take 1 [facility] 10 mg 05-21 109 tablet by ity of tablet 00:00: 00:00 mouth 3 [place] 00 :00 (three) Medical times Branch daily. Immunizations Ordered Filled Date Status Comments Source Immunization Name Immunization Name Influenza Virus 2022-02-27 Completed Universit y of Vaccine Quad IM, 00:00:00 [place] [facility] dical Preserv and ABX Branch Free 6 MO-64 YRS Influenza Virus 2022-02-27 Completed Universit y of Vaccine Quad IM, 00:00:00 [place] Me dical Preserv and ABX Branch Free [...] Universit y of Vaccine Quad IM, 00:00:00 [place] Me dical Preserv and ABX Branch Free [...] Universit y of Vaccine Quad IM, 00:00:00 [place] Me dical Preserv and ABX Branch Free 6 MO-64 YRS Influenza Virus 2022-02-27 Completed Universit y of Vaccine Quad IM, 00:00:00 [place] Me dical Preserv and ABX Branch Free 6 MO-64 YRS (FLUCELVAX) Influenza Virus 2022-02-27 Completed Universit y of Vaccine Quad IM, 00:00:00 [place] Me dical Preserv and ABX Branch Free 6 MO-64 YRS (FLUCELVAX) Influenza Virus 2022-02-27 Completed Universit y of Vaccine Quad IM, 00:00:00 [place] Me dical Preserv and ABX Branch Free 6 MO-64 YRS (FLUCELVAX) Influenza Virus 2022-02-21 Completed Universit y of [...] y of Vaccine Quad .5 mL 00:00:00 [facility] 6+ MO Branch Influenza Virus 2022-02-21 Completed Universit y of Vaccine Quad .5 mL 00:00:00 [place] [facility] IM 6+ MO Branch Influenza Virus 2022-02-21 Completed Universit y of Vaccine Quad .5 mL 00:00:00 [facility] 6+ MO Branch (FLUZONE/FLULAVAL/F LUARIX) Influenza Virus 2022-02-21 Completed Universit y of Vaccine Quad .5 mL 00:00:00 [facility] 6+ MO Branch (FLUZONE/FLULAVAL/F LUARIX) Influenza Virus 2022-02-21 Completed Universit y of Vaccine Quad .5 mL 00:00:00 [facility] 6+ MO Branch (FLUZONE/FLULAVAL/F LUARIX) Influenza Virus 2021-06-11 Completed Universit y of Vaccine 00:00:00 [facility] Influenza Virus 2021-06-11 Completed Universit y of Vaccine 00:00:00 [facility] Influenza Virus 2021-06-11 Completed Universit y of Vaccine 00:00:00 [facility] Influenza Virus 2021-06-11 Completed Universit y of Vaccine 00:00:00 [facility] Influenza Virus 2021-06-11 Completed Universit y of Vaccine 00:00:00 [facility] Influenza Virus 2021-06-11 Completed Universit y of Vaccine 00:00:00 [facility] Influenza Virus 2021-06-11 Completed Universit y of Vaccine 00:00:00 [facility] Influenza Virus 2021-06-11 Completed Universit y of Vaccine 00:00:00 [facility] Influenza Virus 2021-06-11 Completed Universit y of Vaccine 00:00:00 [facility] Influenza Virus 2021-06-11 Completed Universit y of Vaccine 00:00:00 [facility] Influenza Virus 2021-06-11 Completed Universit y of Vaccine 00:00:00 [facility] Influenza Virus 2021-06-11 Completed Universit y of Vaccine 00:00:00 [facility] Influenza Virus 2021-06-11 Completed Universit y of Vaccine 00:00:00 [facility] Influenza Virus 2021-06-11 Completed Universit y of Vaccine 00:00:00 [facility] Influenza Virus 2021-06-11 Completed Universit y of Vaccine 00:00:00 [facility] Influenza Virus 2021-06-11 Completed Universit y of Vaccine 00:00:00 [facility] Influenza Virus 2021-06-11 Completed Universit y of Vaccine 00:00:00 [facility] Influenza Virus 2021-06-11 Completed Universit y of Vaccine 00:00:00 [facility] Influenza Virus 2021-06-11 Completed Universit y of Vaccine 00:00:00 [facility] Influenza Virus 2021-06-11 Completed Universit y of Vaccine 00:00:00 [facility] Influenza Virus 2021-06-11 Completed Universit y of Vaccine 00:00:00 [facility] Influenza Virus 2021-06-11 Completed Universit y of Vaccine 00:00:00 [facility] Influenza Virus 2021-06-11 Completed Universit y of Vaccine 00:00:00 [facility] Influenza Virus 2021-06-11 Completed Universit y of Vaccine 00:00:00 [facility] Influenza Virus 2021-06-11 Completed Universit y of Vaccine 00:00:00 [facility] Influenza Virus 2021-06-11 Completed Universit y of Vaccine 00:00:00 [facility] Influenza Virus 2021-06-11 Completed Universit y of Vaccine 00:00:00 [facility] Influenza Virus 2021-06-11 Completed Universit y of Vaccine 00:00:00 [facility] Influenza Virus 2021-06-11 Completed Universit y of Vaccine 00:00:00 [facility] Influenza Virus 2021-06-11 Completed Universit y of Vaccine 00:00:00 [facility] Influenza Virus 2021-06-11 Completed Universit y of Vaccine 00:00:00 [facility] Influenza Virus 2021-06-11 Completed Universit y of Vaccine 00:00:00 [facility] Influenza Virus 2021-06-11 Completed Universit y of Vaccine 00:00:00 [facility] Influenza Virus 2021-06-11 Completed Universit y of Vaccine 00:00:00 [facility] Influenza Virus 2021-06-11 Completed Universit y of Vaccine 00:00:00 [facility] Influenza Virus 2021-06-11 Completed Universit y of Vaccine 00:00:00 [facility] Influenza Virus 2021-06-11 Completed Universit y of Vaccine 00:00:00 [facility] Influenza Virus 2021-06-11 Completed [facility] 00:00:00 [facility] Influenza Virus 2021-06-11 Completed [facility] Vaccine 00:00:00 [facility] Influenza Virus 2021-06-11 Completed [facility] Vaccine 00:00:00 [facility] Influenza Virus 2021-06-11 Completed [facility] Vaccine 00:00:00 [facility] Influenza Virus 2021-06-11 Completed [facility] Vaccine 00:00:00 [facility] Influenza Virus 2021-06-11 Completed [facility] Vaccine 00:00:00 [facility] Influenza Virus 2021-06-11 Completed [facility] Vaccine 00:00:00 [facility] Influenza Virus 2021-06-11 Completed [facility] Vaccine 00:00:00 [facility] Influenza Virus 2021-06-11 Completed [facility] Vaccine 00:00:00 [facility] Influenza Virus 2021-06-11 Completed [facility] Vaccine 00:00:00 [facility] Influenza Virus 2021-06-11 Completed [facility] Vaccine 00:00:00 [facility] Influenza Virus 2021-06-11 Completed [facility] Vaccine Quad .5 mL 00:00:00 [facility] 6+ MO Branch Influenza Virus 2021-06-11 Completed [facility] Vaccine 00:00:00 [facility] Influenza Virus 2021-06-11 Completed [facility] Vaccine Quad .5 mL 00:00:00 [facility] 6+ MO Branch Influenza Virus 2021-06-11 Completed [facility] Vaccine 00:00:00 [facility] Influenza Virus 2021-06-11 Completed [facility] Vaccine Quad .5 mL 00:00:00 [facility] IM 6+ MO Branch Influenza Virus 2021-06-11 Completed [facility] Vaccine 00:00:00 [facility] Influenza Virus 2021-06-11 Completed [facility] Vaccine Quad .5 mL 00:00:00 [facility] IM 6+ MO Branch Influenza Virus 2021-06-11 Completed [facility] Vaccine 00:00:00 [facility] Influenza Virus 2021-06-11 Completed [facility] Vaccine Quad .5 mL 00:00:00 [facility] IM 6+ MO Branch Influenza Virus 2021-06-11 Completed [facility] Vaccine 00:00:00 [facility] Influenza Virus 2021-06-11 Completed [facility] Vaccine Quad .5 mL 00:00:00 [facility] 6+ MO Branch Influenza Virus 2021-06-11 Completed [facility] Vaccine 00:00:00 [facility] Influenza Virus 2021-06-11 Completed [facility] Vaccine Quad .5 mL 00:00:00 [facility] 6+ MO Branch Influenza Virus 2021-06-11 Completed [facility] Vaccine 00:00:00 [facility] Influenza Virus 2021-06-11 Completed [facility] Vaccine Quad .5 mL 00:00:00 [facility] 6+ MO Branch Influenza Virus 2021-06-11 Completed [facility] Vaccine 00:00:00 [facility] Influenza Virus 2021-06-11 Completed [facility] Vaccine Quad .5 mL 00:00:00 [facility] 6+ MO Branch Influenza Virus 2021-06-11 Completed [facility] Vaccine 00:00:00 [facility] Influenza Virus 2021-06-11 Completed [facility] Vaccine Quad .5 mL 00:00:00 [facility] 6+ MO Branch Influenza Virus 2021-06-11 Completed [facility] Vaccine 00:00:00 [facility] Influenza Virus 2021-06-11 Completed [facility] Vaccine Quad .5 mL 00:00:00 [facility] 6+ MO Branch Influenza Virus 2021-06-11 Completed [facility] Vaccine 00:00:00 [facility] Influenza Virus 2021-06-11 Completed [facility] Vaccine Quad .5 mL 00:00:00 [facility] 6+ MO Branch Influenza Virus 2021-06-11 Completed [facility] Vaccine 00:00:00 [facility] Influenza Virus 2021-06-11 Completed [facility] Vaccine Quad .5 mL 00:00:00 [facility] 6+ MO Branch Influenza Virus 2021-06-11 Completed [facility] Vaccine 00:00:00 [facility] Influenza Virus 2021-06-11 Completed [facility] Vaccine Quad .5 mL 00:00:00 [facility] 6+ MO Branch (FLUZONE/FLULAVAL/F LUARIX) Influenza Virus 2021-06-11 Completed [facility] Vaccine 00:00:00 [facility] Influenza Virus 2021-06-11 Completed [facility] Vaccine Quad .5 mL 00:00:00 [facility] 6+ MO Branch (FLUZONE/FLULAVAL/F LUARIX) Influenza Virus 2021-06-11 Completed [facility] Vaccine 00:00:00 [facility] Influenza Virus 2021-06-11 Completed [facility] Vaccine Quad .5 mL 00:00:00 [facility] 6+ MO Branch (FLUZONE/FLULAVAL/F LUARIX) Influenza Virus 2020-05-19 Completed [facility] Vaccine 00:00:00 [facility] Influenza Virus 2020-05-19 Completed [facility] Vaccine 00:00:00 [facility] Influenza Virus 2020-05-19 Completed [facility] Vaccine 00:00:00 [facility] Influenza Virus 2020-05-19 Completed [facility] Vaccine 00:00:00 [facility] Influenza Virus 2020-05-19 Completed [facility] Vaccine 00:00:00 [facility] Influenza Virus 2020-05-19 Completed [facility] Vaccine 00:00:00 [facility] Influenza Virus 2020-05-19 Completed [facility] Vaccine 00:00:00 [facility] Influenza Virus 2020-05-19 Completed [facility] Vaccine 00:00:00 [facility] Influenza Virus 2020-05-19 Completed [facility] Vaccine 00:00:00 [facility] Influenza Virus 2020-05-19 Completed [facility] Vaccine 00:00:00 [facility] Influenza Virus 2020-05-19 Completed [facility] Vaccine 00:00:00 [facility] Influenza Virus 2020-05-19 Completed [facility] Vaccine 00:00:00 [facility] Influenza Virus 2020-05-19 Completed [facility] Vaccine 00:00:00 [facility] Influenza Virus 2020-05-19 Completed [facility] Vaccine 00:00:00 [facility] Influenza Virus 2020-05-19 Completed [facility] Vaccine 00:00:00 [facility] Influenza Virus 2020-05-19 Completed [facility] Vaccine 00:00:00 [facility] Influenza Virus 2020-05-19 Completed [facility] Vaccine 00:00:00 [facility] Influenza Virus 2020-05-19 Completed [facility] Vaccine 00:00:00 [facility] Influenza Virus 2020-05-19 Completed [facility] Vaccine 00:00:00 [facility] Influenza Virus 2020-05-19 Completed [facility] Vaccine 00:00:00 [facility] Influenza Virus 2020-05-19 Completed [facility] Vaccine 00:00:00 [facility] Influenza Virus 2020-05-19 Completed [facility] Vaccine 00:00:00 [facility] Influenza Virus 2020-05-19 Completed [facility] Vaccine 00:00:00 [facility] Influenza Virus 2020-05-19 Completed [facility] Vaccine 00:00:00 [facility] Influenza Virus 2020-05-19 Completed [facility] Vaccine 00:00:00 [facility] Influenza Virus 2020-05-19 Completed [facility] Vaccine 00:00:00 [facility] Influenza Virus 2020-05-19 Completed [facility] Vaccine 00:00:00 [facility] Influenza Virus 2020-05-19 Completed [facility] Vaccine 00:00:00 [facility] Influenza Virus 2020-05-19 Completed [facility] Vaccine 00:00:00 [facility] Influenza Virus 2020-05-19 Completed [facility] Vaccine 00:00:00 [facility] Influenza Virus 2020-05-19 Completed [facility] Vaccine 00:00:00 [facility] Influenza Virus 2020-05-19 Completed [facility] Vaccine 00:00:00 [facility] Influenza Virus 2020-05-19 Completed [facility] Vaccine 00:00:00 [facility] Influenza Virus 2020-05-19 Completed [facility] Vaccine 00:00:00 [facility] Influenza Virus 2020-05-19 Completed [facility] Vaccine 00:00:00 [facility] Influenza Virus 2020-05-19 Completed [facility] Vaccine 00:00:00 [facility] Influenza Virus 2020-05-19 Completed [facility] Vaccine 00:00:00 [facility] Influenza Virus 2020-05-19 Completed [facility] Vaccine 00:00:00 [facility] Influenza Virus 2020-05-19 Completed [facility] Vaccine 00:00:00 [facility] Influenza Virus 2020-05-19 Completed [facility] Vaccine 00:00:00 [facility] Influenza Virus 2020-05-19 Completed [facility] Vaccine 00:00:00 [facility] Branch Influenza Virus 2020-05-19 Completed [facility] Vaccine 00:00:00 [facility] Influenza Virus 2020-05-19 Completed [facility] Vaccine 00:00:00 [facility] Influenza Virus 2020-05-19 Completed [facility] Vaccine 00:00:00 [facility] Influenza Virus 2020-05-19 Completed [facility] Vaccine 00:00:00 [facility] Influenza Virus 2020-05-19 Completed [facility] Vaccine 00:00:00 [facility] Influenza Virus 2020-05-19 Completed [facility] Vaccine 00:00:00 [facility] Influenza Virus 2020-05-19 Completed [facility] Vaccine 00:00:00 [facility] Influenza Virus 2020-05-19 Completed [facility] Vaccine 00:00:00 [facility] Influenza Virus 2020-05-19 Completed [facility] Vaccine 00:00:00 [facility] Influenza Virus 2020-05-19 Completed [facility] Vaccine 00:00:00 [facility] Influenza Virus 2020-05-19 Completed [facility] Vaccine 00:00:00 [facility] Influenza Virus 2020-05-19 Completed [facility] Vaccine 00:00:00 [facility] Influenza Virus 2020-05-19 Completed [facility] Vaccine 00:00:00 [facility] Influenza Virus 2020-05-19 Completed [facility] Vaccine 00:00:00 [facility] Influenza Virus 2020-05-19 Completed [facility] Vaccine 00:00:00 [facility] Influenza Virus 2020-05-19 Completed [facility] Vaccine 00:00:00 [facility] Influenza Virus 2020-05-19 Completed [facility] Vaccine 00:00:00 [facility] Influenza Virus 2020-05-19 Completed [facility] Vaccine 00:00:00 [facility] Influenza Virus 2020-05-19 Completed [facility] Vaccine 00:00:00 [facility] Influenza Virus 2020-05-19 Completed [facility] Vaccine 00:00:00 [facility] Influenza Virus 2020-05-19 Completed [facility] Vaccine 00:00:00 [facility] Influenza Virus 2020-05-19 Completed [facility] Vaccine 00:00:00 [facility] Influenza Virus 2020-05-16 Completed [facility] Vaccine Recomb Quad 00:00:00 [facility], Preserv and ABX Branc h Free 18-64 [...] (ADACEL) 2019-05-21 Completed [facility] of VACCINE 00:00:00 [facility] TDAP (ADACEL) 2019-05-21 Completed [facility] of VACCINE 00:00:00 [facility] TDAP (ADACEL) 2019-05-21 Completed [facility] VACCINE 00:00:00 [facility] TDAP (ADACEL) 2019-05-21 Completed [facility] VACCINE 00:00:00 [facility] TDAP (ADACEL) 2019-05-21 Completed [facility] VACCINE 00:00:00 [facility] TDAP (ADACEL) 2019-05-21 Completed [facility] VACCINE 00:00:00 [facility] TDAP (ADACEL) 2019-05-21 Completed [facility] VACCINE 00:00:00 [facility] TDAP (ADACEL) 2019-05-21 Completed [facility] VACCINE 00:00:00 [facility] TDAP (ADACEL) 2019-05-21 Completed [facility] VACCINE 00:00:00 [facility] TDAP (ADACEL) 2019-05-21 Completed [facility] VACCINE 00:00:00 [facility] TDAP (ADACEL) 2019-05-21 Completed [facility] VACCINE 00:00:00 [facility] TDAP (ADACEL) 2019-05-21 Completed [facility] VACCINE 00:00:00 [facility] TDAP (ADACEL) 2019-05-21 Completed [facility] VACCINE 00:00:00 [facility] TDAP (ADACEL) 2019-05-21 Completed [facility] VACCINE 00:00:00 [facility] TDAP (ADACEL) 2019-05-21 Completed [facility] VACCINE 00:00:00 [facility] TDAP (ADACEL) 2019-05-21 Completed [facility] VACCINE 00:00:00 [facility] TDAP (ADACEL) 2019-05-21 Completed [facility] VACCINE 00:00:00 [facility] TDAP (ADACEL) 2019-05-21 Completed [facility] VACCINE 00:00:00 [facility] TDAP (ADACEL) 2019-05-21 Completed [facility] VACCINE 00:00:00 [facility] TDAP (ADACEL) 2019-05-21 Completed [facility] VACCINE 00:00:00 [facility] TDAP (ADACEL) 2019-05-21 Completed [facility] VACCINE 00:00:00 [facility] TDAP (ADACEL) 2019-05-21 Completed [facility] VACCINE 00:00:00 [facility] TDAP (ADACEL) 2019-05-21 Completed [facility] VACCINE 00:00:00 [facility] TDAP (ADACEL) 2019-05-21 Completed [facility] VACCINE 00:00:00 [facility] TDAP (ADACEL) 2019-05-21 Completed [facility] VACCINE 00:00:00 [facility] TDAP (ADACEL) 2019-05-21 Completed [facility] VACCINE 00:00:00 [facility] TDAP (ADACEL) 2019-05-21 Completed [facility] VACCINE 00:00:00 [facility] TDAP (ADACEL) 2019-05-21 Completed [facility] VACCINE 00:00:00 [facility] TDAP (ADACEL) 2019-05-21 Completed [facility] VACCINE 00:00:00 [facility] TDAP (ADACEL) 2019-05-21 Completed [facility] VACCINE 00:00:00 [facility] TDAP (ADACEL) 2019-05-21 Completed [facility] VACCINE 00:00:00 [facility] TDAP (ADACEL) 2019-05-21 Completed [facility] VACCINE 00:00:00 [facility] TDAP (ADACEL) 2019-05-21 Completed [facility] VACCINE 00:00:00 [facility] TDAP (ADACEL) 2019-05-21 Completed [facility] VACCINE 00:00:00 [facility] TDAP (ADACEL) 2019-05-21 Completed [facility] VACCINE 00:00:00 [facility] TDAP (ADACEL) 2019-05-21 Completed [facility] VACCINE 00:00:00 [facility] TDAP (ADACEL) 2019-05-21 Completed [facility] VACCINE 00:00:00 [facility] TDAP (ADACEL) 2019-05-21 Completed [facility] VACCINE 00:00:00 [facility] TDAP (ADACEL) 2019-05-21 Completed [facility] VACCINE 00:00:00 [facility] TDAP (ADACEL) 2019-05-21 Completed [facility] VACCINE 00:00:00 [facility] TDAP (ADACEL) 2019-05-21 Completed [facility] VACCINE 00:00:00 [facility] TDAP (ADACEL) 2019-05-21 Completed [facility] VACCINE 00:00:00 [facility] TDAP (ADACEL) 2019-05-21 Completed University [...] (ADACEL) 2019-05-21 Completed [facility] VACCINE 00:00:00 [facility] TDAP (ADACEL) 2019-05-21 Completed [facility] VACCINE 00:00:00 [facility] TDAP (ADACEL) 2019-05-21 Completed [facility] VACCINE 00:00:00 [facility] TDAP (ADACEL) 2019-05-21 Completed [facility] VACCINE 00:00:00 [facility] TDAP (ADACEL) 2019-05-21 Completed [facility] VACCINE 00:00:00 [facility] TDAP (ADACEL) 2019-05-21 Completed [facility] VACCINE 00:00:00 [facility] TDAP (ADACEL) 2019-05-21 Completed [facility] VACCINE 00:00:00 [facility] TDAP (ADACEL) 2019-05-21 Completed [facility] VACCINE 00:00:00 [facility] TDAP (ADACEL) 2019-05-21 Completed [facility] VACCINE 00:00:00 [facility] TDAP (ADACEL) 2019-05-21 Completed [facility] of VACCINE 00:00:00 [facility] TDAP (ADACEL) 2019-05-21 Completed [facility] VACCINE 00:00:00 [facility] TDAP (ADACEL) 2019-05-21 Completed [facility] of VACCINE 00:00:00 [facility] TDAP (ADACEL) 2019-05-21 Completed [facility] of VACCINE 00:00:00 [facility] TDAP (ADACEL) 2019-05-21 Completed [facility] VACCINE 00:00:00 [facility] Influenza Virus 2019-02-06 Completed [facility] Vaccine Quad .5 mL 00:00:00 [facility] 6+ MO [facility] Influenza Virus 2019-02-06 Completed [facility] Vaccine Quad .5 mL 00:00:00 [facility] 6+ MO [facility] Influenza Virus 2019-02-06 Completed [facility] of Vaccine Quad .5 mL 00:00:00 [facility] 6+ MO Branch Influenza Virus 2019-02-06 Completed [facility] Vaccine Quad .5 mL 00:00:00 [facility] 6+ MO [facility] Influenza Virus 2019-02-06 Completed [facility] of Vaccine Quad .5 mL 00:00:00 [facility] 6+ MO Branch Influenza Virus 2019-02-06 Completed [facility] of Vaccine Quad .5 mL 00:00:00 [facility] 6+ MO Branch Influenza Virus [...] y of Vaccine Quad .5 mL 00:00:00 [facility] 6+ MO [facility] Influenza Virus 2019-02-06 Completed [facility] Vaccine Quad .5 mL 00:00:00 [facility] 6+ MO [facility] Influenza Virus 2019-02-06 Completed [facility] of Vaccine Quad .5 mL 00:00:00 [facility] 6+ MO Branch Influenza Virus 2019-02-06 Completed [facility] of Vaccine Quad .5 mL 00:00:00 [facility] 6+ MO Branch Influenza Virus 2019-02-06 Completed [facility] of Vaccine Quad .5 mL 00:00:00 [facility] 6+ MO Branch Influenza Virus [...] y of Vaccine Quad .5 mL 00:00:00 [facility] 6+ MO Branch Influenza Virus [...] y of Vaccine Quad .5 mL 00:00:00 [facility] 6+ MO Branch Influenza Virus [...] y of Vaccine Quad .5 mL 00:00:00 [facility] 6+ MO Branch Influenza Virus 2019-02-06 Completed [facility] of Vaccine Quad .5 mL 00:00:00 [facility] 6+ MO Branch Influenza Virus 2019-02-06 Completed [facility] of Vaccine Quad .5 mL 00:00:00 [facility] 6+ MO Branch Influenza Virus 2019-02-06 Completed [facility] of Vaccine Quad .5 mL 00:00:00 [facility] 6+ MO Branch Influenza Virus 2019-02-06 Completed [facility] of Vaccine Quad .5 mL 00:00:00 [facility] 6+ MO Branch Influenza Virus 2019-02-06 Completed [facility] of Vaccine Quad .5 mL 00:00:00 [facility] 6+ MO Branch Influenza Virus 2019-02-06 Completed [facility] of Vaccine Quad .5 mL 00:00:00 [facility] 6+ MO Branch Influenza Virus 2019-02-06 Completed [facility] of Vaccine Quad .5 mL 00:00:00 [facility] 6+ MO Branch Influenza Virus 2019-02-06 Completed [facility] of Vaccine Quad .5 mL 00:00:00 [facility] 6+ MO [facility] Influenza Virus 2019-02-06 Completed [facility] of Vaccine Quad .5 mL 00:00:00 [facility] 6+ MO [facility] Influenza Virus 2019-02-06 Completed [facility] of Vaccine Quad .5 mL 00:00:00 [facility] 6+ MO [facility] Influenza Virus 2019-02-06 Completed [facility] of Vaccine Quad .5 mL 00:00:00 [facility] 6+ MO Branch Influenza Virus 2019-02-06 Completed [facility] of Vaccine Quad .5 mL 00:00:00 [facility] 6+ MO Branch Influenza Virus 2019-02-06 Completed [facility] of Vaccine Quad .5 mL 00:00:00 [facility] 6+ MO Branch Influenza Virus 2019-02-06 Completed [facility] of Vaccine Quad .5 mL 00:00:00 [facility] 6+ MO Branch Influenza Virus 2019-02-06 Completed [facility] of Vaccine Quad .5 mL 00:00:00 [facility] 6+ MO Branch Influenza Virus 2019-02-06 Completed [facility] of Vaccine Quad .5 mL 00:00:00 [facility] 6+ MO Branch Influenza Virus 2019-02-06 Completed [facility] of Vaccine Quad .5 mL 00:00:00 [facility] 6+ MO [facility] Influenza Virus 2019-02-06 Completed [facility] of Vaccine Quad .5 mL 00:00:00 [facility] 6+ MO Branch Influenza Virus 2019-02-06 Completed [facility] of Vaccine Quad .5 mL 00:00:00 [facility] 6+ MO Branch Influenza Virus 2019-02-06 Completed [facility] of Vaccine Quad .5 mL 00:00:00 [facility] 6+ MO Branch Influenza Virus 2019-02-06 Completed [facility] of Vaccine Quad .5 mL 00:00:00 [facility] 6+ MO Branch Influenza Virus 2019-02-06 Completed [facility] of Vaccine Quad .5 mL 00:00:00 [facility] 6+ MO Branch Influenza Virus 2019-02-06 Completed [facility] of Vaccine Quad .5 mL 00:00:00 [facility] 6+ MO Branch Influenza Virus 2019-02-06 Completed [facility] of Vaccine Quad .5 mL 00:00:00 [facility] 6+ MO Branch Influenza Virus 2019-02-06 Completed [facility] of Vaccine Quad .5 mL 00:00:00 [facility] 6+ MO Branch Influenza Virus 2019-02-06 Completed [facility] of Vaccine Quad .5 mL 00:00:00 [facility] 6+ MO [facility] Influenza Virus 2019-02-06 Completed [facility] of Vaccine Quad .5 mL 00:00:00 [facility] 6+ MO Branch Influenza Virus 2019-02-06 Completed [facility] of Vaccine Quad .5 mL 00:00:00 [facility] 6+ MO Branch Influenza Virus 2019-02-06 Completed [facility] Vaccine Quad .5 mL 00:00:00 [facility] 6+ MO [facility] Influenza Virus 2019-02-06 Completed [facility] of Vaccine Quad .5 mL 00:00:00 [facility] 6+ MO [facility] Influenza Virus 2019-02-06 Completed [facility] of Vaccine Quad .5 mL 00:00:00 [facility] 6+ MO Branch (FLUZONE/FLULAVAL/F LUARIX) Influenza Virus 2019-02-06 Completed [facility] Vaccine Quad .5 mL 00:00:00 [facility] 6+ MO Branch (FLUZONE/FLULAVAL/F LUARIX) Influenza Virus 2019-02-06 Completed [facility] of Vaccine Quad .5 mL 00:00:00 [facility] 6+ MO Branch (FLUZONE/FLULAVAL/F LUARIX) Influenza Virus Unknown Completed [facility] Vaccine Quad .5 mL [facility] 6+ MO Branch (FLUZONE/FLULAVAL/F LUARIX) TDAP (ADACEL) Unknown Completed [facility] of VACCINE [facility] Influenza Virus Unknown Completed [facility] y of Vaccine Recomb Quad [facility], Preserv and ABX Branc h Free 18-64 YRS Influenza Virus Unknown Completed [facility] y of Vaccine [facility] Influenza Virus Unknown Completed [facility] Vaccine [facility] [place] Influenza Virus Unknown Completed [facility] y of Vaccine Quad , [facility] dical Preserv and ABX Branch Free 6 MO-64 YRS (FLUCELVAX) Influenza Virus Unknown Completed [facility] of Vaccine Quad .5 mL [facility] IM 6+ MO Branch (FLUZONE/FLULAVAL/F LUARIX) Influenza Virus Unknown Completed [facility] of Vaccine Quad .5 mL [facility] IM 6+ MO Branch (FLUZONE/FLULAVAL/F LUARIX) Influenza Virus Unknown Completed [facility] of Vaccine Quad .5 mL [facility] IM 6+ MO Branch (FLUZONE/FLULAVAL/F LUARIX) TDAP (ADACEL) Unknown Completed [facility] of VACCINE [facility] Influenza Virus Unknown Completed [facility] of Vaccine Recomb Quad [facility], Preserv and ABX Branc h Free 18-64 YRS Influenza Virus Unknown Completed [facility] Vaccine [facility] [place] Influenza Virus Unknown Completed [facility] Vaccine [facility] Influenza Virus Unknown Completed [facility] Vaccine Quad , [place] [facility] Preserv and ABX Branch Free 6 MO-64 YRS (FLUCELVAX) Influenza Virus Unknown Completed [facility] of Vaccine Quad .5 mL [facility] IM 6+ MO Branch (FLUZONE/FLULAVAL/F LUARIX) Influenza Virus Unknown Completed [facility] of Vaccine Quad .5 mL [facility] IM 6+ MO Branch (FLUZONE/FLULAVAL/F LUARIX) Influenza Virus Unknown Completed [facility] of Vaccine Quad .5 mL [facility] IM 6+ MO Branch (FLUZONE/FLULAVAL/F LUARIX) TDAP (ADACEL) Unknown Completed [facility] of VACCINE [facility] Influenza Virus Unknown Completed [facility] y of Vaccine Recomb Quad [facility], Preserv and ABX Branc h Free 18-64 YRS Influenza Virus Unknown Completed [facility] y of Vaccine [facility] Influenza Virus Unknown Completed [facility] y of Vaccine [facility] Influenza Virus Unknown Completed [facility] of Vaccine Quad .5 mL [facility] 6+ MO Branch (FLUZONE/FLULAVAL/F LUARIX) Influenza Virus Unknown Completed [facility] of Vaccine Quad .5 mL [facility] 6+ MO Branch (FLUZONE/FLULAVAL/F LUARIX) TDAP (ADACEL) Unknown Completed [facility] of VACCINE [facility] Influenza Virus Unknown Completed [facility] Vaccine Recomb Quad [facility] [facility], Preserv and ABX Branc h Free 18-64 YRS Influenza Virus Unknown Completed [facility] Vaccine [facility] Influenza Virus Unknown Completed [facility] Influenza Virus Unknown Completed [facility] Vaccine Quad .5 mL [facility] 6+ MO Branch (FLUZONE/FLULAVAL/F LUARIX) Influenza Virus Unknown Completed [facility] Vaccine Quad .5 mL [facility] IM 6+ MO Branch (FLUZONE/FLULAVAL/F LUARIX) TDAP (ADACEL) Unknown Completed [facility] VACCINE [facility] Influenza Virus Unknown Completed [facility] Vaccine Recomb Quad [facility], Preserv and ABX Branc h Free 18-64 YRS Influenza Virus Unknown Completed [facility] Vaccine [facility] Influenza Virus Unknown Completed [facility] Influenza Virus Unknown Completed [facility] Vaccine Quad .5 mL [facility] IM 6+ MO Branch (FLUZONE/FLULAVAL/F LUARIX) Influenza Virus Unknown Completed [facility] Vaccine Quad .5 mL [facility] 6+ MO Branch (FLUZONE/FLULAVAL/F LUARIX) TDAP (ADACEL) Unknown Completed University VACCINE [facility] Influenza Virus Unknown Completed [facility] Vaccine Recomb [facility], Preserv and ABX Branc h Free 18-64 YRS Influenza Virus Unknown Completed [facility] Influenza Virus Unknown Completed [facility] Influenza Virus Unknown Completed [facility] Vaccine Quad .5 mL [facility] 6+ MO Branch (FLUZONE/FLULAVAL/F LUARIX) Influenza Virus Unknown Completed [facility] Vaccine Quad .5 mL [facility] IM 6+ MO Branch (FLUZONE/FLULAVAL/F LUARIX) TDAP (ADACEL) Unknown Completed [facility]ACC[facility] Influenza Virus Unknown Completed [facility] Vaccine Recomb [facility] , Preserv and ABX Branc h Free 18-64 YRS Influenza Virus Unknown Completed [facility] Influenza Virus Unknown Completed [facility] [place] Influenza Virus Unknown Completed [facility] Vaccine Quad .5 mL [facility] IM 6+ MO Branch (FLUZONE/FLULAVAL/F LUARIX) Influenza Virus Unknown Completed [facility] Vaccine Quad .5 mL [facility] IM 6+ MO Branch (FLUZONE/FLULAVAL/F LUARIX) TDAP (ADACEL) Unknown Completed [facility] Influenza Virus Unknown Completed [facility] Vaccine Recomb Quad [facility], Preserv and ABX Branc h Free 18-64 YRS Influenza Virus Unknown Completed [facility] Influenza Virus Unknown Completed [facility] Influenza Virus Unknown Completed [facility] Vaccine Quad .5 mL [facility] 6+ MO Branch (FLUZONE/FLULAVAL/F LUARIX) Influenza Virus Unknown Completed [facility] Vaccine Quad .5 mL [facility] 6+ MO Branch (FLUZONE/FLULAVAL/F LUARIX) TDAP (ADACEL) Unknown Completed [facility] Influenza Virus Unknown Completed [facility] Vaccine Recomb [facility], Preserv and ABX Branc h Free 18-64 YRS Influenza Virus Unknown Completed [facility] Influenza Virus Unknown Completed [facility] Influenza Virus Unknown Completed [facility] Vaccine Quad .5 mL [facility] IM 6+ MO Branch (FLUZONE/FLULAVAL/F LUARIX) Influenza Virus Unknown Completed [facility] Vaccine Quad .5 mL [facility] IM 6+ MO Branch (FLUZONE/FLULAVAL/F LUARIX) TDAP (ADACEL) Unknown Completed [facility]ACC[facility] Influenza Virus Unknown Completed [facility] Vaccine Recomb [facility], Preserv and ABX Branc h Free 18-64 YRS Influenza Virus Unknown Completed [facility] Influenza Virus Unknown Completed [facility] Influenza Virus Unknown Completed [facility] Vaccine Quad .5 mL [facility] IM 6+ MO Branch (FLUZONE/FLULAVAL/F LUARIX) Influenza Virus Unknown Completed [facility] Vaccine Quad .5 mL [facility] IM 6+ MO Branch (FLUZONE/FLULAVAL/F LUARIX) TDAP (ADACEL) Unknown Completed [facility]ACC[facility] Influenza Virus Unknown Completed [facility] Vaccine Recomb Quad [facility], Preserv and ABX Branc h Free 18-64 YRS Influenza Virus Unknown Completed [facility] Influenza Virus Unknown Completed [facility] Influenza Virus Unknown Completed [facility] Vaccine Quad .5 mL [facility] IM 6+ MO Branch (FLUZONE/FLULAVAL/F LUARIX) Influenza Virus Unknown Completed [facility] Vaccine Quad .5 mL [facility] IM 6+ MO Branch (FLUZONE/FLULAVAL/F LUARIX) TDAP (ADACEL) Unknown Completed [facility]ACC[facility] Influenza Virus Unknown Completed [facility] Vaccine Recomb Quad [facility], Preserv and ABX Branc h Free 18-64 YRS Influenza Virus Unknown Completed [facility] Influenza Virus Unknown Completed [facility] Influenza Virus Unknown Completed [facility] Vaccine Quad .5 mL [facility] IM 6+ MO Branch (FLUZONE/FLULAVAL/F LUARIX) Influenza Virus Unknown Completed [facility] Vaccine Quad .5 mL [facility] IM 6+ MO Branch (FLUZONE/FLULAVAL/F LUARIX) TDAP (ADACEL) Unknown Completed [facility]ACC[facility] Influenza Virus Unknown Completed [facility] Vaccine Recomb [facility], Preserv and ABX Branc h Free 18-64 YRS Influenza Virus Unknown Completed [facility] Influenza Virus Unknown Completed [facility] Influenza Virus Unknown Completed [facility] Vaccine Quad .5 mL [facility] IM 6+ MO Branch (FLUZONE/FLULAVAL/F LUARIX) Influenza Virus Unknown Completed [facility] Vaccine Quad .5 mL [facility] IM 6+ MO Branch (FLUZONE/FLULAVAL/F LUARIX) TDAP (ADACEL) Unknown Completed [facility] Influenza Virus Unknown Completed [facility] Vaccine Recomb [facility], Preserv and ABX Branc h Free 18-64 YRS Influenza Virus Unknown Completed [facility] Influenza Virus Unknown Completed [facility] Influenza Virus Unknown Completed [facility] Vaccine Quad .5 mL [facility] 6+ MO Branch (FLUZONE/FLULAVAL/F LUARIX) Influenza Virus Unknown Completed [facility] Vaccine Quad .5 mL [facility] 6+ MO Branch (FLUZONE/FLULAVAL/F LUARIX) TDAP (ADACEL) Unknown Completed [facility]ACC[facility] Influenza Virus Unknown Completed [facility] Vaccine Recomb [facility] , Preserv and ABX Branc h Free 18-64 YRS Influenza Virus Unknown Completed [facility] [place] Influenza Virus Unknown Completed [facility] Influenza Virus Unknown Completed [facility] Vaccine Quad .5 mL [facility] 6+ MO Branch (FLUZONE/FLULAVAL/F LUARIX) Influenza Virus Unknown Completed [facility] Vaccine Quad .5 mL [facility] 6+ MO Branch (FLUZONE/FLULAVAL/F LUARIX) TDAP (ADACEL) Unknown Completed [facility]ACC[facility] Influenza Virus Unknown Completed [facility] Vaccine Re[facility] , Preserv and ABX Branc h Free 18-64 YRS Influenza Virus Unknown Completed [facility] Influenza Virus Unknown Completed [facility] Influenza Virus Unknown Completed [facility] Vaccine Quad .5 mL [facility] IM 6+ MO Branch (FLUZONE/FLULAVAL/F LUARIX) Influenza Virus Unknown Completed [facility] Vaccine Quad .5 mL [facility] IM 6+ MO Branch (FLUZONE/FLULAVAL/F LUARIX) TDAP (ADACEL) Unknown Completed [facility] [place] Influenza Virus Unknown Completed [facility] Vaccine Recomb [facility], Preserv and ABX Branc h Free 18-64 YRS Influenza Virus Unknown Completed [facility] Influenza Virus Unknown Completed [facility] Influenza Virus Unknown Completed [facility] Vaccine Quad .5 mL [facility] IM 6+ MO Branch (FLUZONE/FLULAVAL/F LUARIX) Influenza Virus Unknown Completed [facility] Vaccine Quad .5 mL [facility] 6+ MO Branch (FLUZONE/FLULAVAL/F LUARIX) TDAP (ADACEL) Unknown Completed [facility] Influenza Virus Unknown Completed [facility] Vaccine Recomb [facility], Preserv and ABX Branc h Free 18-64 YRS Influenza Virus Unknown Completed [facility] Influenza Virus Unknown Completed [facility] [place] Influenza Virus Unknown Completed [facility] Vaccine Quad .5 mL [facility] IM 6+ MO Branch (FLUZONE/FLULAVAL/F LUARIX) Influenza Virus Unknown Completed [facility] Vaccine Quad .5 mL [facility] 6+ MO Branch (FLUZONE/FLULAVAL/F LUARIX) TDAP (ADACEL) Unknown Completed [facility] Influenza Virus Unknown Completed [facility] Vaccine Recomb [facility], Preserv and ABX Branc h Free 18-64 YRS Influenza Virus Unknown Completed [facility] Influenza Virus Unknown Completed [facility] Vaccine Quad .5 mL [facility] 6+ MO Branch (FLUZONE/FLULAVAL/F LUARIX) TDAP (ADACEL) Unknown Completed [facility]ACCINE [facility] Influenza Virus Unknown Completed [facility] Vaccine Recomb [facility], Preserv and ABX Branc h Free 18-64 YRS Influenza Virus Unknown Completed [facility] Influenza Virus Unknown Completed [facility] Vaccine Quad .5 mL [facility] 6+ MO Branch (FLUZONE/FLULAVAL/F LUARIX) TDAP (ADACEL) Unknown Completed [facility] Influenza Virus Unknown Completed [facility] Vaccine Recomb [facility], Preserv and ABX Branc h Free 18-64 YRS Influenza Virus Unknown Completed [facility] Influenza Virus Unknown Completed [facility] Vaccine Quad .5 mL [facility] 6+ MO Branch (FLUZONE/FLULAVAL/F LUARIX) TDAP (ADACEL) Unknown Completed [facility] Influenza Virus Unknown Completed [facility] Vaccine Recomb [facility], Preserv and ABX Branc h Free 18-64 YRS Influenza Virus Unknown Completed [facility] Vaccine [facility] Influenza Virus Unknown Completed [facility] Vaccine Quad .5 mL [facility] 6+ MO Branch (FLUZONE/FLULAVAL/F LUARIX) TDAP (ADACEL) Unknown Completed [facility] Influenza Virus Unknown Completed [facility] Vaccine Recomb [facility], Preserv and ABX Branc h Free 18-64 YRS Influenza Virus Unknown Completed [facility] Vaccine [facility] Influenza Virus Unknown Completed [facility] Vaccine Quad .5 mL [facility] 6+ MO Branch (FLUZONE/FLULAVAL/F LUARIX) TDAP (ADACEL) Unknown Completed [facility] Influenza Virus Unknown Completed [facility] Vaccine Recomb Quad [facility] IM, Preserv and ABX Branc h Free 18-64 YRS Influenza Virus Unknown Completed [facility] Vaccine [facility] Influenza Virus Unknown Completed [facility] Vaccine Quad .5 mL [facility] 6+ MO Branch (FLUZONE/FLULAVAL/F LUARIX) TDAP (ADACEL) Unknown Completed [facility] Influenza Virus Unknown Completed [facility] Vaccine Recomb Quad [facility], Preserv and ABX Branc h Free 18-64 YRS Influenza Virus Unknown Completed [facility] Vaccine [facility] Influenza Virus Unknown Completed [facility] Vaccine Quad .5 mL [facility] 6+ MO Branch (FLUZONE/FLULAVAL/F LUARIX) TDAP (ADACEL) Unknown Completed [facility] Influenza Virus Unknown Completed [facility] Vaccine Recomb [facility], Preserv and ABX Branc h Free 18-64 YRS Influenza Virus Unknown Completed [facility] Vaccine [facility] Influenza Virus Unknown Completed [facility] Vaccine Quad .5 mL [facility] 6+ MO Branch (FLUZONE/FLULAVAL/F LUARIX) TDAP (ADACEL) Unknown Completed [facility] Influenza Virus Unknown Completed [facility] Vaccine Re[facility], Preserv and ABX Branc h Free 18-64 YRS Influenza Virus Unknown Completed [facility] [place] Influenza Virus Unknown Completed [facility] Vaccine Quad .5 mL [facility] 6+ MO Branch (FLUZONE/FLULAVAL/F LUARIX) TDAP (ADACEL) Unknown Completed [facility] Influenza Virus Unknown Completed [facility] Vaccine Recomb [facility], Preserv and ABX Branc h Free 18-64 YRS Influenza Virus Unknown Completed [facility] [place] Influenza Virus Unknown Completed [facility] Vaccine Quad .5 mL [facility] IM 6+ MO Branch (FLUZONE/FLULAVAL/F LUARIX) TDAP (ADACEL) Unknown Completed [facility] Influenza Virus Unknown Completed [facility] Vaccine Recomb [facility], Preserv and ABX Branc h Free 18-64 YRS Influenza Virus Unknown Completed [facility] Vaccine [facility] Influenza Virus Unknown Completed [facility] Vaccine Quad .5 mL [facility] IM 6+ MO Branch (FLUZONE/FLULAVAL/F LUARIX) TDAP (ADACEL) Unknown Completed [facility] Influenza Virus Unknown Completed [facility] Vaccine Recomb [facility], Preserv and ABX Branc h Free 18-64 YRS Influenza Virus Unknown Completed [facility] Vaccine [facility] Influenza Virus Unknown Completed [facility] Vaccine Quad .5 mL [facility] 6+ MO Branch (FLUZONE/FLULAVAL/F LUARIX) TDAP (ADACEL) Unknown Completed [facility] Influenza Virus Unknown Completed [facility] Vaccine Recomb [facility], Preserv and ABX Branc h Free 18-64 YRS Influenza Virus Unknown Completed [facility] Vaccine [facility] Influenza Virus Unknown Completed [facility] Vaccine Quad .5 mL [facility] IM 6+ MO Branch (FLUZONE/FLULAVAL/F LUARIX) TDAP (ADACEL) Unknown Completed [facility] Influenza Virus Unknown Completed [facility] Vaccine Recomb [facility], Preserv and ABX Branc h Free 18-64 YRS Influenza Virus Unknown Completed [facility] Vaccine [facility] Influenza Virus Unknown Completed [facility] Vaccine Quad .5 mL [facility] IM 6+ MO Branch (FLUZONE/FLULAVAL/F LUARIX) TDAP (ADACEL) Unknown Completed [facility] VACCINE [facility] Influenza Virus Unknown Completed [facility] Vaccine Recomb [facility], Preserv and ABX Branc h Free 18-64 YRS Influenza Virus Unknown Completed [facility] Influenza Virus Unknown Completed [facility] Vaccine Quad .5 mL [facility] IM 6+ MO Branch (FLUZONE/FLULAVAL/F LUARIX) TDAP (ADACEL) Unknown Completed [facility] Influenza Virus Unknown Completed [facility] Vaccine Recomb [facility], Preserv and ABX Branc h Free 18-64 YRS Influenza Virus Unknown Completed [facility] Influenza Virus Unknown Completed [facility] Vaccine Quad .5 mL [facility] IM 6+ MO Branch (FLUZONE/FLULAVAL/F LUARIX) TDAP (ADACEL) Unknown Completed [facility] Influenza Virus Unknown Completed [facility] Vaccine Recomb [facility], Preserv and ABX Branc h Free 18-64 YRS Influenza Virus Unknown Completed [facility] [place] Influenza Virus Unknown Completed [facility] Vaccine Quad .5 mL [facility] IM 6+ MO Branch (FLUZONE/FLULAVAL/F LUARIX) TDAP (ADACEL) Unknown Completed [facility] Influenza Virus Unknown Completed [facility] Vaccine Recomb [facility], Preserv and ABX Branc h Free 18-64 YRS Influenza Virus Unknown Completed [facility] Vaccine [facility] Influenza Virus Unknown Completed [facility] Vaccine Quad .5 mL [facility] IM 6+ MO Branch (FLUZONE/FLULAVAL/F LUARIX) TDAP (ADACEL) Unknown Completed [facility] Influenza Virus Unknown Completed [facility] Vaccine Recomb [facility], Preserv and ABX Branc h Free 18-64 YRS Influenza Virus Unknown Completed [facility] [place] Influenza Virus Unknown Completed [facility] Vaccine Quad .5 mL [facility] IM 6+ MO Branch (FLUZONE/FLULAVAL/F LUARIX) TDAP (ADACEL) Unknown Completed [facility] Influenza Virus Unknown Completed [facility] Vaccine Recomb [facility], Preserv and ABX Branc h Free 18-64 YRS Influenza Virus Unknown Completed [facility] [place] Influenza Virus Unknown Completed [facility] Vaccine Quad .5 mL [facility] IM 6+ MO Branch (FLUZONE/FLULAVAL/F LUARIX) TDAP (ADACEL) Unknown Completed [facility] Influenza Virus Unknown Completed [facility] Vaccine Re[facility], Preserv and ABX Branc h Free 18-64 YRS Influenza Virus Unknown Completed [facility] Vaccine [facility] Influenza Virus Unknown Completed [facility] Vaccine Quad .5 mL [facility] IM 6+ MO Branch (FLUZONE/FLULAVAL/F LUARIX) TDAP (ADACEL) Unknown Completed [facility] Influenza Virus Unknown Completed [facility] Vaccine Re[facility], Preserv and ABX Branc h Free 18-64 YRS Influenza Virus Unknown Completed [facility] Vaccine [facility] Influenza Virus Unknown Completed [facility] Vaccine Quad .5 mL [facility] 6+ MO Branch (FLUZONE/FLULAVAL/F LUARIX) TDAP (ADACEL) Unknown Completed [facility] Influenza Virus Unknown Completed [facility] Vaccine Recomb Quad [facility], Preserv and ABX Branc h Free 18-64 YRS Influenza Virus Unknown Completed [facility] Vaccine [facility] Influenza Virus Unknown Completed [facility] Vaccine Quad .5 mL [facility] IM 6+ MO Branch (FLUZONE/FLULAVAL/F LUARIX) TDAP (ADACEL) Unknown Completed [facility] Influenza Virus Unknown Completed [facility] Vaccine Recomb Quad [facility], Preserv and ABX Branc h Free 18-64 YRS Influenza Virus Unknown Completed [facility] Influenza Virus Unknown Completed [facility] Vaccine Quad .5 mL [facility] 6+ MO Branch (FLUZONE/FLULAVAL/F LUARIX) TDAP (ADACEL) Unknown Completed [facility] Influenza Virus Unknown Completed [facility] Vaccine [facility], Preserv and ABX Branc h Free 18-64 YRS Influenza Virus Unknown Completed [facility] Vacc[facility] Influenza Virus Unknown Completed [facility] Vaccine Quad .5 mL [facility] IM 6+ MO Branch (FLUZONE/FLULAVAL/F LUARIX) TDAP (ADACEL) Unknown Completed [facility] Influenza Virus Unknown Completed [facility] Vaccine Recomb Quad [facility] IM, Preserv and ABX Branc h Free 18-64 YRS Influenza Virus Unknown Completed [facility] Vacc[facility] Influenza Virus Unknown Completed [facility] Vaccine Quad .5 mL [facility] 6+ MO Branch (FLUZONE/FLULAVAL/F LUARIX) TDAP (ADACEL) Unknown Completed [facility] Influenza Virus Unknown Completed [facility] Vaccine [facility], Preserv and ABX Branc h Free 18-64 YRS Influenza Virus Unknown Completed [facility] [place] Influenza Virus Unknown Completed [facility] Vaccine Quad .5 mL [facility] 6+ MO Branch (FLUZONE/FLULAVAL/F LUARIX) TDAP (ADACEL) Unknown Completed [facility] Influenza Virus Unknown Completed [facility] Vaccine [facility], Preserv and ABX Branc h Free 18-64 YRS Influenza Virus Unknown Completed [facility] Vaccine [facility] Influenza Virus Unknown Completed [facility] Vaccine Quad .5 mL [facility] 6+ MO Branch (FLUZONE/FLULAVAL/F LUARIX) TDAP (ADACEL) Unknown Completed [facility] Influenza Virus Unknown Completed [facility] Vaccine [facility], Preserv and ABX Branc h Free 18-64 YRS Influenza Virus Unknown Completed [facility] Vaccine [facility] Influenza Virus Unknown Completed [facility] Vaccine Quad .5 mL [facility] 6+ MO Branch (FLUZONE/FLULAVAL/F LUARIX) TDAP (ADACEL) Unknown Completed [facility] Influenza Virus Unknown Completed [facility] Vaccine [facility], Preserv and ABX Branc h Free 18-64 YRS Influenza Virus Unknown Completed [facility] [place] Influenza Virus Unknown Completed [facility] Vaccine Quad .5 mL [facility] IM 6+ MO Branch (FLUZONE/FLULAVAL/F LUARIX) TDAP (ADACEL) Unknown Completed [facility] Influenza Virus Unknown Completed [facility] Vaccine [facility], Preserv and ABX Branc h Free 18-64 YRS Influenza Virus Unknown Completed [facility] Influenza Virus Unknown Completed [facility] Vaccine Quad .5 mL [facility] IM 6+ MO Branch (FLUZONE/FLULAVAL/F LUARIX) TDAP (ADACEL) Unknown Completed [facility] Influenza Virus Unknown Completed [facility] Vaccine [facility], Preserv and ABX Branc h Free 18-64 YRS Influenza Virus Unknown Completed [facility] Influenza Virus Unknown Completed [facility] Vaccine Quad .5 mL [facility] IM 6+ MO Branch (FLUZONE/FLULAVAL/F LUARIX) TDAP (ADACEL) Unknown Completed [facility] Influenza Virus Unknown Completed [facility] Vaccine [facility], Preserv and ABX Branc h Free 18-64 YRS Influenza Virus Unknown Completed [facility] Influenza Virus Unknown Completed [facility] Vaccine Quad .5 mL [facility] IM 6+ MO Branch (FLUZONE/FLULAVAL/F LUARIX) TDAP (ADACEL) Unknown Completed [facility] Influenza Virus Unknown Completed [facility] Vaccine Recomb Quad [facility], Preserv and ABX Branc h Free 18-64 YRS Influenza Virus Unknown Completed [facility] Vaccine [facility] Influenza Virus Unknown Completed [facility] Vaccine Quad .5 mL [facility] 6+ MO Branch (FLUZONE/FLULAVAL/F LUARIX) TDAP (ADACEL) Unknown Completed [facility] Influenza Virus Unknown Completed [facility] y of Vaccine Recomb Quad [facility], Preserv and ABX Branc h Free 18-64 YRS Influenza Virus Unknown Completed [facility]it y of Vaccine [facility] Influenza Virus Unknown Completed [facility] of Vaccine Quad .5 mL [facility] IM 6+ MO Branch (FLUZONE/FLULAVAL/F LUARIX) TDAP (ADACEL) Unknown Completed [facility] Influenza Virus Unknown Completed [facility] Vaccine Recomb Quad [facility], Preserv and ABX Branc h Free 18-64 YRS Influenza Virus Unknown Completed [facility]it y of Vaccine [facility] Influenza Virus Unknown Completed [facility] Vaccine Quad .5 mL [facility] IM 6+ MO [facility] (FLUZONE/FLULAVAL/F LUARIX) TDAP (ADACEL) Unknown Completed [facility] Influenza Virus Unknown Completed [facility] of Vaccine Quad .5 mL [facility] IM 6+ [facility] Branch (FLUZONE/FLULAVAL/F LUARIX) TDAP (ADACEL) Unknown Completed [facility] Influenza Virus Unknown Completed [facility]it y of Vaccine Quad .5 mL [facility] IM 6+ MO Branch (FLUZONE/FLULAVAL/F LUARIX) TDAP (ADACEL) Unknown Completed [facility] Influenza Virus Unknown Completed [facility] of Vaccine Quad .5 mL [facility] IM 6+ MO Branch (FLUZONE/FLULAVAL/F LUARIX) TDAP (ADACEL) Unknown Completed [facility] Influenza Virus Unknown Completed [facility] of Vaccine Quad .5 mL [facility] IM 6+ MO Branch (FLUZONE/FLULAVAL/F LUARIX) TDAP (ADACEL) Unknown Completed [facility] Influenza Virus Unknown Completed [facility]it y of Vaccine Quad .5 mL [facility] IM 6+ MO Branch (FLUZONE/FLULAVAL/F LUARIX) TDAP (ADACEL) Unknown Completed [facility] Influenza Virus Unknown Completed [facility]it y of Vaccine Quad .5 mL [facility] IM 6+ MO Branch (FLUZONE/FLULAVAL/F LUARIX) TDAP (ADACEL) Unknown Completed [facility] Influenza Virus Unknown Completed [facility]it y of Vaccine Quad .5 mL [facility] IM 6+ MO Branch (FLUZONE/FLULAVAL/F LUARIX) TDAP (ADACEL) Unknown Completed [facility] Influenza Virus Unknown Completed [facility]it y of Vaccine Quad .5 mL [facility] IM 6+ MO Branch (FLUZONE/FLULAVAL/F LUARIX) TDAP (ADACEL) Unknown Completed [facility] Vital Signs Vital Name Observation Time Observation Value Comments Source Systolic blood 2023-01-15 16:56:00 132 mm[facility]Hg[facility] Diastolic blood 2023-01-15 16:56:00 91 mm[Hg] [facility] Heart rate 2023-01-15 16:56:00 67 /min [facility] Body temperature 2023-01-15 16:56:[address] [facility] [place] Res[facility] rate 2023-01-15 16:56:00 20 /min [facility] Oxygen saturation in 2023-01-15 16:56:00 100 /min [facility] Arterial blood by [facility] Pulse oximetry Branch Body height 2023-01-12 09:05:00 154.9 cm [facility] Body weight 2023-01-12 09:05:00 58.968 kg [facility] BMI 2023-01-12 09:05:00 24.56 kg/m2 [facility] Systolic blood 2022-11-21 21:40:00 122 mm[Hg] Univer sity of pressure [facility] Diastolic blood 2022-11-21 21:40:00 90 mm[Hg] Unive rsity of pressure [facility] Heart rate 2022-11-21 21:40:00 92 /min [facility] Respiratory rate 2022-11-21 21:40:00 16 /min Univ ers[facility] Oxygen saturation in 2022-11-21 21:40:00 99 /min [facility]ial blood by [facility] Pulse oximetry [facility] Body temperature 2022-11-21 18:07:00 37.28 Irene [facility] Body weight 2022-11-21 18:07:00 68.04 kg [facility] BMI 2022-11-21 18:07:00 28.34 kg/m2 [facility] Systolic blood 2022-09-05 17:22:00 139 mm[Hg] Univer sity of pressure [facility] Diastolic blood 2022-09-05 17:22:00 91 mm[Hg] Unive rsity of pressure [facility] Heart rate 2022-09-05 17:22:00 120 /min [facility] Respiratory rate 2022-09-05 17:22:00 18 /min Univ ers[facility] Oxygen saturation in 2022-09-05 17:22:00 99 /min [facility] blood by [facility] Pulse oximetry [facility] Body temperature 2022-09-05 13:43:00 37.11 Irene [facility] Body weight 2022-09-05 13:43:00 68.04 kg [facility] BMI 2022-09-05 13:43:00 28.34 kg/m2 [facility] Systolic blood 2022-08-01 00:49:00 138 mm[Hg] Univer sity of pressure [facility] Diastolic blood 2022-08-01 00:49:00 104 mm[Hg] Unive rsity of pressure [facility] Heart rate 2022-08-01 00:49:00 108 /min [facility] Respiratory rate 2022-08-01 00:49:00 18 /min Univ ers[facility] Oxygen saturation in 2022-08-01 00:49:00 99 /min [facility] blood by [facility] Pulse oxim[facility] Body temperature 2022-07-31 22:52:00 37.11 Irene [facility] Body height 2022-07-31 22:52:00 154.9 cm [facility] Body weight 2022-07-31 22:52:00 68.04 kg [facility] BMI 2022-07-31 22:52:00 28.34 kg/m2 [facility] Systolic blood 2022-07-15 15:32:00 130 mm[Hg] Univer sity of pressure [facility] Diastolic blood 2022-07-15 15:32:00 90 mm[Hg] Unive rsity of pressure [facility] Heart rate 2022-07-15 15:31:00 81 /min [facility] Body temperature 2022-07-15 15:31:00 36.94 Irene [facility] Respiratory rate 2022-07-15 15:31:00 16 /min Univ ers[facility] Body weight 2022-07-15 15:31:00 68.493 kg [facility] BMI 2022-07-15 15:31:00 28.53 kg/m2 [facility] Oxygen saturation in 2022-07-15 15:31:00 99 /min University of Arterial blood by [facility] yessi Pulse oximetry Branch Systolic blood 2022-06-23 15:26:00 111 mm[Hg] Univer sity of pressure [facility] Diastolic blood 2022-06-23 15:26:00 75 mm[Hg] Unive rsity of pressure [facility] Heart rate 2022-06-23 15:26:00 108 /min [facility] Body temperature 2022-06-23 15:26:00 36.83 Irene [facility] Respiratory rate 2022-06-23 15:26:00 18 /min Univ ers[facility] Body height 2022-06-23 15:26:00 154.9 cm [facility] Body weight 2022-06-23 15:26:00 71.385 kg [facility] BMI 2022-06-23 15:26:00 29.74 kg/m2 [facility] Oxygen saturation in 2022-06-23 15:26:00 99 /min [facility] of Arterial blood by [facility] yessi Pulse oximetry Branch Systolic blood 2022-05-05 22:05:00 126 mm[Hg] Univer sity of pressure [facility] Diastolic blood 2022-05-05 22:05:00 75 mm[Hg] Unive rsity of pressure [facility] Heart rate 2022-05-05 22:05:00 99 /min [facility] Respiratory rate 2022-05-05 22:05:00 16 /min Univ ers[facility] Oxygen saturation in 2022-05-05 22:05:00 99 /min [facility] of Arterial blood by [facility] Pulse oximetry Branch Body temperature 2022-05-05 18:24:00 37.11 Irene [facility] Body height 2022-05-05 18:24:00 154.9 cm [facility] Body weight 2022-05-05 18:24:00 54.432 kg [facility] BMI 2022-05-05 18:24:00 22.67 kg/m2 [facility] Systolic blood 2022-04-26 14:28:00 135 mm[Hg] Univer sity of pressure [facility] Diastolic blood 2022-04-26 14:28:00 95 mm[Hg] Unive rsity of pressure [facility] Heart rate 2022-04-26 14:28:00 93 /min [facility] Body temperature 2022-04-26 14:28:00 36.89 Irene [facility] Respiratory rate 2022-04-26 14:28:00 18 /min Univ [facility] Body height 2022-04-26 14:28:00 154.9 cm [facility] Body weight 2022-04-26 14:28:00 54.432 kg [facility] BMI 2022-04-26 14:28:00 22.67 kg/m2 [facility] Oxygen saturation in 2022-04-26 14:28:00 100 /min [facility] of Arterial blood by [facility] Pulse oximetry Branch Systolic blood 2022-04-26 00:21:00 151 mm[Hg] Univer sity of pressure [facility] Diastolic blood 2022-04-26 00:21:00 98 mm[Hg] Unive rsity of pressure [facility] Heart rate 2022-04-26 00:21:00 98 /min [facility] Body temperature 2022-04-26 00:21:00 36.72 Irene [facility] Respiratory rate 2022-04-26 00:21:00 18 /min Univ ers[facility] Body height 2022-04-26 00:21:00 154.9 cm [facility] Body weight 2022-04-26 00:21:00 54.432 kg [facility] BMI 2022-04-26 00:21:00 22.67 kg/m2 [facility] Oxygen saturation in 2022-04-26 00:21:00 100 /min [facility] Arterial blood by [facility] Pulse oximetry Branch Systolic blood 2022-04-09 14:39:00 122 mm[Hg] Univer sity of pressure [facility] Diastolic blood 2022-04-09 14:39:00 84 mm[Hg] Unive rsity of pressure [facility] Heart rate 2022-04-09 14:39:00 96 /min [facility] Body height 2022-04-09 14:39:00 154.9 cm [facility] Body weight 2022-04-09 14:39:00 60.328 kg [facility] BMI 2022-04-09 14:39:00 25.13 kg/m2 [facility] Oxygen saturation in 2022-04-09 14:39:00 98 /min [facility] of Arterial blood by [facility] yessi Pulse oximetry Branch Systolic blood 2022-04-07 22:43:36 131 mm[Hg] Univer sity of pressure [facility] Diastolic blood 2022-04-07 22:43:36 83 mm[Hg] Unive rsity of pressure [facility] Heart rate 2022-04-07 22:43:36 113 /min [facility] Respiratory rate 2022-04-07 22:43:36 18 /min Univ ersity [facility] Oxygen saturation in 2022-04-07 22:43:36 97 /min [facility] Arterial blood by [place] [employer] [facility] Pulse oximetry [facility] Body temperature 2022-04-07 19:41:00 37.17 Irene [facility] Body height 2022-04-07 19:41:00 154.9 cm [facility] Body weight 2022-04-07 19:41:00 60.328 kg [facility] BMI 2022-04-07 19:41:00 25.13 kg/m2 [facility] Systolic blood 2022-03-24 19:00:00 125 mm[Hg] Univer sity of pressure [facility] Diastolic blood 2022-03-24 19:00:00 86 mm[Hg] Unive rsity of pressure [facility] Heart rate 2022-03-24 19:00:00 93 /min [facility] Respiratory rate 2022-03-24 19:00:00 17 /min Univ ers[facility] Oxygen saturation in 2022-03-24 19:00:00 97 /min [facility] of Arterial blood by [facility] yessi Pulse oximetry Branch Body temperature 2022-03-24 13:33:00 36.78 Irene [facility] Systolic blood 2022-03-15 19:23:00 128 mm[Hg] Univer sity of pressure [facility] Diastolic blood 2022-03-15 19:23:00 89 mm[Hg] Unive rsity of pressure [facility] Heart rate 2022-03-15 19:23:00 104 /min [facility] Body weight 2022-03-15 19:23:00 60.328 kg [facility] BMI 2022-03-15 19:23:00 25.13 kg/m2 [facility] Oxygen saturation in 2022-03-15 19:23:00 98 /min [facility] Pulse oximetry [facility] Systolic blood 2022-03-15 15:02:00 115 mm[Hg] Univer sity of pressure [facility] Diastolic blood 2022-03-15 15:02:00 70 mm[Hg] Unive rsity of pressure [facility] Heart rate 2022-03-15 15:02:00 85 /min [facility] Respiratory rate 2022-03-15 15:02:00 20 /min Univ ersity [facility] Oxygen saturation in 2022-03-15 15:02:00 99 /min [facility] Arterial blood by [facility] yessi Pulse oximetry Branch Body temperature 2022-03-15 13:38:00 36.94 Irene [facility] Body height 2022-03-15 13:38:00 154.9 cm [facility] Body weight 2022-03-15 13:38:00 54.432 kg [facility] BMI 2022-03-15 13:38:00 22.67 kg/m2 [facility] Systolic blood 2022-03-11 16:30:00 124 mm[Hg] Univer sity of pressure [facility] Diastolic blood 2022-03-11 16:30:00 88 mm[Hg] Unive rsity of pressure [facility] Heart rate 2022-03-11 16:30:00 93 /min [facility] Body temperature 2022-03-11 16:30:00 36.67 Irene [facility] Respiratory rate 2022-03-11 16:30:00 14 /min Univ [facility] Oxygen saturation in 2022-03-11 16:30:00 100 /min [facility] Arterial blood by [place] [employer] [facility] Pulse oximetry [facility] Body height 2022-03-11 14:19:00 154.9 cm [facility] Body weight 2022-03-11 14:19:00 58.968 kg [facility] BMI 2022-03-11 14:19:00 24.56 kg/m2 [facility] Systolic blood 2022-02-27 14:14:00 140 mm[Hg] Univer sity of pressure [facility] Diastolic blood 2022-02-27 14:14:00 90 [...] 99 /min [facility] blood by [facility] Pulse oxim[facility] Systolic blood 2022-02-21 08:06:00 135 mm[Hg] Univer sity of pressure [facility] Diastolic blood 2022-02-21 08:06:00 97 mm[Hg] Unive rsity of pressure [facility] Heart rate 2022-02-21 08:06:00 98 /min [facility] Respiratory rate 2022-02-21 08:06:00 16 /min Univ ersity [facility] Oxygen saturation in 2022-02-21 08:06:00 97 /min [facility] Arterial blood by [facility] Pulse oximetry [facility] Body temperature 2022-02-21 06:16:00 36.94 Irene [facility] Body height 2022-02-21 06:16:00 154.9 cm [facility] Body weight 2022-02-21 06:16:00 60.963 kg [facility] BMI 2022-02-21 06:16:00 25.39 kg/m2 [facility] Systolic blood 2022 20:08:00 136 mm[Hg] Univer sity of pressure [facility] Diastolic blood 2022 20:08:00 96 mm[Hg] Unive rsity of pressure [facility] Heart rate 2022 20:08:00 100 /min [facility] Respiratory rate 2022 20:08:00 20 /min Univ ers[facility] Oxygen saturation in 2022 20:08:00 98 /min [facility] Arterial blood by [employer] Pulse oximetry Branch Body temperature 2022 16:56:00 37.06 Irene [facility] Body weight 2022 16:56:00 54.432 kg [facility] BMI 2022 16:56:00 22.67 kg/m2 [facility] Systolic blood 2022-02-05 14:31:00 128 mm[Hg] Univer sity of pressure [facility] Diastolic blood 2022-02-05 14:31:00 84 mm[Hg] Unive rsity of pressure [facility] Heart rate 2022-02-05 14:31:00 86 /min [facility] Body temperature 2022-02-05 14:31:00 37.89 Irene [facility] Respiratory rate 2022-02-05 14:31:00 18 /min [facility] Body height 2022-02-05 14:31:00 154.9 cm [facility] Body weight 2022-02-05 14:31:00 54.432 kg [facility] BMI 2022-02-05 14:31:00 22.67 kg/m2 [facility] Oxygen saturation in 2022-02-05 14:31:00 98 /min [facility] Arterial blood by [facility] Pulse oximetry Branch Systolic blood 2022-01-18 14:50:00 144 mm[Hg] Univer sity of pressure [facility] Diastolic blood 2022-01-18 14:50:00 92 mm[Hg] Unive rsity of pressure [facility] Heart rate 2022-01-18 14:50:00 94 /min [facility] Respiratory rate 2022-01-18 14:50:00 20 /min Univ [facility] Oxygen saturation in 2022-01-18 14:50:00 99 /min [facility] Arterial blood by [facility] Pulse oximetry Branch Body weight 2022-01-18 10:18:00 54.432 kg [facility] BMI 2022-01-18 10:18:00 22.67 kg/m2 [facility] Body temperature 2022-01-18 10:15:00 36.72 Irene [facility] Systolic blood 2022-01-15 15:48:26 125 mm[Hg] Univer sity of pressure [facility] Diastolic blood 2022-01-15 15:48:26 85 mm[Hg] Unive rsity of pressure [facility] Heart rate 2022-01-15 15:48:26 95 /min [facility] Respiratory rate 2022-01-15 15:48:26 18 /min Univ [facility] Oxygen saturation in 2022-01-15 15:48:26 98 /min [facility] Arterial blood by [facility] Pulse oximetry Branch Body temperature 2022-01-15 13:32:00 37.11 Irene [facility] Body height 2022-01-15 13:32:00 154.9 cm [facility] Body weight 2022-01-15 13:32:00 54.432 kg [facility] BMI 2022-01-15 13:32:00 22.67 kg/m2 [facility] Systolic blood 2022-01-09 00:37:11 127 mm[Hg] Univer sity of pressure [facility] Diastolic blood 2022-01-09 00:37:11 90 mm[Hg] Unive rsity of pressure [facility] Heart rate 2022-01-09 00:37:11 94 /min [facility] Body temperature 2022-01-09 00:37:11 37.11 Irene [facility] Respiratory rate 2022-01-09 00:37:11 16 /min Univ [facility] Oxygen saturation in 2022-01-09 00:37:11 97 /min [facility] Arterial blood by [facility] Pulse oximetry Branch Body height 2022-01-08 23:03:00 154.9 cm [facility] Body weight 2022-01-08 23:03:00 58.06 kg [facility] BMI 2022-01-08 23:03:00 24.19 kg/m2 [facility] Systolic blood 2021-12-12 18:00:00 126 mm[Hg] Univer sity of pressure [facility] Diastolic blood 2021-12-12 18:00:00 87 mm[Hg] Unive rsity of pressure [facility] Heart rate 2021-12-12 18:00:00 86 /min [facility] Body temperature 2021-12-12 18:00:00 36.89 Irene [facility] Respiratory rate 2021-12-12 18:00:00 18 /min [facility] Body height 2021-12-12 18:00:00 154.9 cm [facility] Body weight 2021-12-12 18:00:00 57.153 kg [facility] BMI 2021-12-12 18:00:00 23.81 kg/m2 [facility] Systolic blood 2023-01-14 16:32:00 138 mm[Hg] Univer sity of pressure [facility] Diastolic blood 2023-01-14 16:32:00 84 mm[Hg] Unive rsity of pressure [facility] Heart rate 2023-01-14 16:32:00 67 /min [facility] Body temperature 2023-01-14 16:32:00 36.5 Irene [facility] Respiratory rate 2023-01-14 16:32:00 16 /min Univ [facility] Oxygen saturation in 2023-01-14 16:32:00 99 /min [facility] Arterial blood by [facility] Pulse oximetry [place] Body height 2023-01-12 09:05:00 154.9 cm [facility] Body weight 2023-01-12 09:05:00 58.968 kg [facility] BMI 2023-01-12 09:05:00 24.56 kg/m2 [facility] Procedures Procedure Date / Time Performing Clinician Source Performed PHOSPHORUS 2023-01-15 08:15:00 Benita Rockwell [facility] MAGNESIUM 2023-01-15 08:15:00 Benita Rockwell [facility] BASIC METABOLIC PANEL 2023-01-15 08:15:00 Benita Rockwell [facility] versity [facility] (NA, K, CL, CO2, GLUCOSE, Medica l Branch BUN, CREATININE, CA) CBC WITH DIFF 2023-01-15 08:15:00 Benita Rockwell [facility] PROTHROMBIN TIME / INR 2023-01-15 08:15:00 [facility] 2023-01-14 10:14:00 Benita Rockwell [facility] PHOSPHORUS 2023-01-14 10:14:00 Benita Rockwell Daphnie [facility] BASIC METABOLIC PANEL 2023-01-14 10:14:00 Benita Rockwell [facility] (NA, K, CL, CO2, GLUCOSE, Medica l Branch BUN, CREATININE, CA) CBC WITH DIFF 2023-01-14 10:14:00 Benita Rockwell [facility] PHOSPHORUS 2023-01-14 10:14:00 Benita Rockwell [facility] MAGNESIUM 2023-01-14 10:14:00 Benita Rockwell [facility] BASIC METABOLIC PANEL 2023-01-14 10:14:00 Benita Rockwell [facility] (NA, K, CL, CO2, GLUCOSE, Medica l Branch BUN, CREATININE, CA) CBC WITH DIFF 2023-01-14 10:14:00 Hill, Benita [facility] CBC WITH DIFF 2023-01-13 10:45:00 Vaishnavi, [facility] BASIC METABOLIC PANEL 2023-01-13 10:45:00 Vaishnavi, [facility] (NA, K, CL, CO2, GLUCOSE, Medica l Branch BUN, CREATININE, CA) MAGNESIUM 2023-01-13 10:45:00 Vaishnavi, [facility] PHOSPHORUS 2023-01-13 10:45:00 Vaishnavi, [facility] HEPATIC FUNCTION PANEL 2023-01-13 10:45:00 Vaishnavi, [facility] ([id number]) (ALB,T.PRO,BILI Medical Branch T,BU/BC,ALT,AST,ALK PHOS) PHOSPHORUS 2023-01-13 10:45:00 Vaishnavi, [facility] MAGNESIUM 2023-01-13 10:45:00 Vaishnavi, [facility] HEPATIC FUNCTION PANEL 2023-01-13 10:45:00 Vaishnavi, [facility] ([id number]) (ALB,T.PRO,BILI Medical [place] T,BU/BC,ALT,AST,ALK PHOS) BASIC METABOLIC PANEL 2023-01-13 10:45:00 Vaishnavi, [facility] (NA, K, CL, CO2, GLUCOSE, Medica l Branch BUN, CREATININE, CA) CBC WITH DIFF 2023-01-13 10:45:00 Vaishnavi, [facility] GLUCOSE BODY FLUID 2023-01-12 20:44:00 VaishnaviRodolfo wade [facility] BODY FLUID MANUAL DIFF 2023-01-12 20:44:00 Vaishnavi, [facility] T.PROTEIN BODY FLUID 2023-01-12 20:44:00 Rodolfo Riggins [facility] ASPIRATE OR ABSCESS 2023-01-12 20:44:00 VaishnaviRodolfo wade [facility] CULTURE(AEROBIC/ANAEROBIC Medica l Branch ) LDH TOTAL BODY FLUID 2023-01-12 20:44:00 VaishnaviRodolfo wade [facility] GLUCOSE BODY FLUID 2023-01-12 20:44:00 Vaishnavi, [facility] [place] T.PROTEIN BODY FLUID 2023-01-12 20:44:00 VaishnaviRodolfo [facility] BODY FLUID DIRECT COUNT 2023-01-12 20:44:00 VaishnaviRodolfo l [facility] ASPIRATE OR ABSCESS 2023-01-12 20:44:00 [facility]IC [facility] ) LDH TOTAL BODY FLUID 2023-01-12 20:44:00 VaishnaviRodolfo [facility] PROTHROMBIN TIME / INR 2023-01-12 08:13:00 VaishnaviRodolfo [facility] PROTHROMBIN TIME / INR 2023-01-12 08:13:00 Vaishnavi, Rodolfo Sanchez [facility] COMP. METABOLIC PANEL 2023-01-12 03:49:00 Ciera García [facility] ([id number]) [facility] COMP. METABOLIC PANEL 2023-01-12 03:49:00 Ciera García [facility] ([id number]) [facility] CT ABDOMEN PELVIS W 2023-01-12 03:32:06 Ciera García [facility] CONTRAST [facility] CT ABDOMEN PELVIS W 2023-01-12 03:32:06 Ciera García [facility] POCT TEST 2023-01-12 03:02:00 Ciera García [facility] POCT TEST 2023-01-12 03:02:00 Ciera García [facility] URINALYSIS 2023-01-12 02:56:00 Ciera García [facility] LIPASE 2023-01-12 02:56:00 Ricky [facility] TOTAL BETA HCG ASSAY 2023-01-12 02:56:00 Ciera García [facility] CBC WITH DIFF 2023-01-12 02:56:00 Ricky [facility] EXTRA TUBE ORANGE 2023-01-12 02:56:00 Artur [facility] EXTRA TUBE LAV 2023-01-12 02:56:00 Artur [facility] LIPASE 2023-01-12 02:56:00 Ricky [facility] TOTAL BETA HCG ASSAY 2023-01-12 02:56:00 Ciera García [facility] CBC WITH DIFF 2023-01-12 02:56:00 Ricky [facility] URINALYSIS 2023-01-12 02:56:00 Ricky [facility] EXTRA TUBE LAV 2023-01-12 02:56:00 Artur [facility] EXTRA TUBE ORANGE 2023-01-12 02:56:00 Artur [facility] CONSENT/REFUSAL FOR 2023-01-12 01:46:10 Doctor Unassigned, No [facility] [place] [facility] Name Medical Branch CONSENT/REFUSAL FOR 2023-01-12 01:46:10 Doctor Unassigned, No [facility] [place] [facility] Name Medical Branch ASSIGNMENT OF BENEFITS 2022-11-21 19:49:02 Doctor Unassigned, No [facility] ASSIGNMENT OF BENEFITS 2022-11-21 19:49:02 Doctor Unassigned, No [facility] Branch CONSENT/REFUSAL FOR 2022-11-21 18:03:25 Doctor Unassigned, No [facility] [place] [facility] TREAT[facility] Name Medical Branch CONSENT/REFUSAL FOR 2022-11-21 18:03:25 Doctor Unassigned, No [facility] [place] [facility] TREAT[facility] Name Medical [place] EMERGENCY SERVICES 2022-11-21 05:01:00 Doctor Unassigned, No Uni versity [facility] AGREEMENTS AND Name Medical Branch AUTHORIZATIONS CONSENT/REFUSAL FOR 2022-09-05 13:42:02 Doctor Unassigned, No [facility] [place] [facility] Name Medical Branch LIPASE 2022-07-31 23:13:00 Manju Newell [facility] TEST, SERUM 2022-07-31 23:13:00 Manju Newell [facility] [place] [facility] COMP. METABOLIC PANEL 2022-07-31 23:13:00 Manju Newell Un [facility] ([id number]) [facility] CBC WITH DIFF 2022-07-31 23:13:00 Manju Newell [facility] CONSENT/REFUSAL FOR 2022-07-31 22:49:17 Doctor Unassigned, No Un [facility] DIAGNOSIS AND TREATMENT Name Medical [place] XR ANKLE 3+ VW RIGHT 2022-07-15 16:00:00 Cari Perdomo [facility] XR FOOT 3+ VW RIGHT 2022-07-15 16:00:[address] [facility] XR FOOT 3+ VW RIGHT 2022-07-15 16:00:[address] [facility] PATIENT FINANCIAL 2022-07-15 15:25:53 Doctor Unassigned, No [facility] POLICY [facility] POCT MOLECULAR STREP 2022-06-23 16:06:00 Unknown, Attending [facility] ASSIGNMENT OF BENEFITS 2022-06-23 15:18:28 Doctor Unassigned, No [facility] COMP. METABOLIC PANEL 2022-05-05 19:14:00 Karon Norton [facility] ([id number]) [facility] CBC WITH DIFF 2022-05-05 19:14:00 Karon Norton [facility] POCT TEST 2022-05-05 19:00:[address] [facility] URINALYSIS 2022-05-05 18:58:00 Karon Norton [facility] CT ABDOMEN PELVIS WO 2022-04-26 15:11:00 Zion Bridges [facility] CONTRAST [facility] COMP. METABOLIC PANEL 2022-04-26 14:49:00 Zion Bridges [facility] ([id number]) [facility] CBC WITH DIFF 2022-04-26 14:49:00 Singer [facility] URINALYSIS 2022-04-26 14:49:00 Singer [facility] POCT TEST 2022-04-26 14:45:00 Zion Bridges [facility] CONSENT/REFUSAL FOR 2022-04-26 14:22:29 Doctor Unassigned, No [facility] [place] [facility]REAT[facility] Name Medical Branch POCT TEST 2022-04-26 01:22:00 Zion Bridges [facility] ASSIGNMENT OF BENEFITS 2022-04-26 00:54:02 Doctor Unassigned, No [facility] URINALYSIS 2022-04-26 00:45:00 Singer [facility] CONSENT/REFUSAL FOR 2022-04-26 00:16:47 Doctor Unassigned, No [facility] [place] [facility] Name Medical [place] BASIC METABOLIC PANEL 2022-04-07 22:35:00 Olamide Garvin [facility] (NA, K, CL, CO2, GLUCOSE, Medica l Branch BUN, CREATININE, CA) CBC WITH DIFF 2022-04-07 22:35:00 Olamide Garvin [facility] URINALYSIS 2022-04-07 21:36:00 Olamide Garvin [facility] URINE DRUG (IMMUNOASSAY) 2022-04-07 21:36:00 Olamide Garvin [facility] [place] [facility] DRUG Medical Bra nch SCREEN W/O REFLEX CONSENT/REFUSAL FOR 2022-04-07 19:29:15 Doctor Unassigned, No [facility] [place] [facility] Name Medical [place] POCT TEST 2022-03-24 14:07:00 [facility] FOR 2022-03-24 13:27:20 Doctor Unassigned, No [facility] [place] [facility] TREATMENT [facility] Medical [place] CT ABDOMEN PELVIS WO 2022-03-15 14:09:04 Anna Gould [facility] CONTRAST [facility] URINALYSIS 2022-03-15 13:53:00 [facility] 2022-03-15 13:52:00 Anna Gould [facility] CONSENT/REFUSAL FOR 2022-03-15 13:37:02 Doctor Unassigned, No [facility] [place] [facility] TREAT[facility] Name Medical Branch POCT TEST 2022-03-11 14:59:00 Angelica Viveros [facility] FLU VACC ([id number]), 6 2022-02-27 13:34:55 Vijay Martinez [facility] MO-64 YRS, .5ML, IM, QUAD Medica l Branch (FLUCELVAX) NOTICE OF PRIVACY 2022-02-21 06:06:30 Doctor Unassigned, No [facility] PRACTICES Name Medical Branch CONSENT/REFUSAL FOR 2022-02-21 06:03:41 Doctor Unassigned, No [facility] Name Medical [place] XR ANKLE <3 VW RIGHT 2022 17:56:42 Maggie Hamilton [facility] CT ABDOMEN PELVIS W 2022 17:44:17 Maggie Hamilton [facility] CT TRAUMA CERVICAL SPINE 2022 17:43:49 Maggie Hamilton [facility] CONTRAST [facility] POCT TEST 2022 17:27:00 Maggie Hamilton [facility] COMP. METABOLIC PANEL 2022 17:17:00 Maggie Hamilton [facility] ([id number]) [facility] CBC WITH DIFF 2022 17:17:00 Maggie Hamilton [facility] CONSENT/REFUSAL FOR 2022 16:53:13 Doctor Unassigned, No [facility] Name [facility] [place] US GALL BLADDER 2022-01-18 12:31:09 Bernardo Levy [facility] US PELVIS COMPLETE WITH 2022-01-18 12:21:13 Melvin Zhao [facility] TRANSVAGINAL [facility] Branch CT ABDOMEN PELVIS W 2022-01-18 11:20:50 Melvin Zhao [facility] CONTRAST [facility] Branch POCT TEST 2022-01-18 10:57:00 Jayy Kennedy [facility] COVID-19 (ID NOW RAPID 2022-01-18 10:57:00 Jayy Kennedy [facility] TESTING) Medical Branch URINALYSIS 2022-01-18 10:47:00 [facility] LIPASE 2022-01-18 10:29:00 Brent [facility] TEST, SERUM 2022-01-18 10:29:00 Kennedy [facility] HEPATIC FUNCTION PANEL 2022-01-18 10:29:00 Brent Jayy Torrie [facility] ([id number]) (ALB,T.PRO,BILI Medical Branch T,BU/BC,ALT,AST,ALK PHOS) BASIC METABOLIC PANEL 2022-01-18 10:29:00 [facility] (NA, K, CL, CO2, GLUCOSE, Medica l Branch BUN, CREATININE, CA) CBC WITH DIFF 2022-01-18 10:29:00 [facility] CONSENT/REFUSAL FOR 2022-01-18 10:13:31 Doctor Unassigned, No [facility] Name [facility] CT HEAD WO CONTRAST 2022-01-15 15:22:29 Danita [facility] TEST, SERUM 2022-01-15 14:36:00 Danita [facility] BASIC METABOLIC PANEL 2022-01-15 14:36:00 Daniat [facility] (NA, K, CL, CO2, GLUCOSE, Medica l Branch BUN, CREATININE, CA) CBC WITH DIFF 2022-01-15 14:36:00 Danita [facility] CONSENT/REFUSAL FOR 2022-01-15 13:28:12 Doctor Unassigned, No [facility] Name [facility] XR CERVICAL SPINE 4 VW 2022-01-09 00:29:16 Gabriela [facility] XR LUMBAR SPINE 4 VW 2022-01-09 00:29:16 Gabriela [facility] XR SPINE THORACIC 3 VW 2022-01-09 00:29:16 Gabriela [facility] URINALYSIS 2022-01-08 23:50:00 Gabriela [facility] CONSENT/REFUSAL FOR 2022-01-08 22:51:08 Doctor Unassigned, No Un [facility] DIAGNOSIS AND TREATMENT Name Medical Branch GALV ONLY - VAGINAL 2021-12-12 18:37:00 Prasanna Vargas [facility] PATHOGENS BY NUCLEIC ACID Medica l Branch TESTING URINE CULTURE 2021-12-12 18:32:00 Prasanna Vargas [facility] POCT TEST 2021-12-12 18:31:00 Prasanna Vargas [facility] POCT URINALYSIS W/O 2021-12-12 18:31:00 Prasanna Vargas [facility] SPECIFIC GRAVITY Medical Branch Encounters Start End Encounter Admission Attending Care Care Encounter Source Date/Time Date/Time Type Type Clinicians Facility Department ID 2021-03-[address] [facility] [id number] Univers 03:14:31 ity of [facility] 2021-03-[address] [facility] [id number] Univers 20:05:20 ity of [facility] 2021-03-[address] [facility] [id number] Univers 12:48:28 ity of [facility] 2021-03-[address] [facility] [id number] Univers 02:43:51 ity of [facility] 2021-03-[address] [facility] [id number] Univers 00:27:09 ity of [facility] 2021-03-[address] [facility] [id number] Univers 22:10:36 ity of [facility] 2021-03-[address] [facility] [id number] Univers 20:04:05 ity of [facility] 2021-03-[address] [facility] [id number] Univers 15:25:05 ity of [facility] 2021-03-[address] [facility] [id number] Univers 11:43:36 ity of [facility] 2021-03-[address] [facility] [id number] Univers 07:41:37 ity of [facility] 2021-03-[address] [facility] [id number] Univers 05:43:47 ity of [facility] 2021-03-[address] [facility] [id number] Univers 03:43:41 ity of [facility] 2021-03-[address] [facility] [id number] Univers 01:31:27 ity of [facility] 2021-03-12 Emergency X [facility] ERT [id number] Univers 00:56:44 ity of [facility] 2021-03-[address] [facility] [id number] Univers 00:56:31 ity of [facility] 2021-03-[address] [facility] [id number] Univers 17:47:02 ity of [facility] 2021-03-[address] [facility] [id number] Univers 16:27:15 ity of [facility] 2021-03-[address] [facility] [id number] Univers 12:00:58 ity of [facility] 2021-03-[address] [facility] [id number] Univers 10:33:59 ity of [facility] 2021-03-[address] [facility] [id number] Univers 01:36:52 ity of [facility] 2021-03-[address] [facility] [id number] Univers 23:35:34 ity of [facility] 2021-03-[address] [facility] [id number] Univers 19:06:16 ity of [facility] 2021-03-[address] [facility] [id number] Univers 12:39:47 ity of [facility] 2021-03-[address] [facility] [id number] Univers 06:54:04 ity of [facility] 2021-03-09 Outpatient P [facility] [id number] Univers 13:25:44 ity of [facility] 2021-03-09 Outpatient P [facility] [id number] Univers 13:08:01 ity of [facility] 2021-03-09 Outpatient P [facility] [id number] Univers 12:37:25 ity of [facility] 2021-03-09 Outpatient P [facility] [id number] Univers 11:51:20 ity of [facility] 2023-02-14 2023-02-14 Outpatient SFA [facility] [id number] [place] 12:59:23 12:59:23 Abdullahi5 Jeffery 2023-02-06 2023-02-06 Outpatient SFA [facility]FA [id number] [place] 18:19:02 18:19:02 0927 F Jeffery 2023-01-30 2023-01-30 Outpatient ERICKSON_R [facility] [id number] [place] 00:00:00 00:00:00 920 [facility] i ty [facility]osp[facility] 2023-01-16 2023-01-16 Transition HILARIO Odell 1.2.840.114 [id number] Univers 00:00:00 00:00:00 of Care Marlys DIMASY 350.1.13.10 [place] [id number] [facility] 403 Branch 2023-01-11 2023-01-15 Inpatient X PERSON, [facility] [id number] Univers 21:06:00 16:00:00 [facility] 2023-01-11 2023-01-15 Hospital Aroldo Siddiqui 1.2.840.11 [id number] Univers 21:06:00 16:00:00 Encounter Mirella Vergara 350.1.13.10 [facility] 4.2.7.2.686 [place] [id number] [facility] 091 Branch 2023-01-12 2023-01-12 Travel 1.2.840.1 1.2.943.522 [id number] Univers 00:00:00 00:00:00 43355.1.1 350.1.13.10 ity of 3.104.2.7 [place].698 [place] .3.102742 084.8 Medica l .8 Branch 2023-01-11 2023-01-11 Travel 1.2.840.1 1.2.678.751 [id number] Univers 00:00:00 00:00:00 93520.1.1 350.1.13.10 ity of 3.104.2.7 [place].698 [place] .3.303833 084.8 Medica l .8 Branch 2022-12-28 2022-12-28 Outpatient ERICKSON_R [facility] [id number] [place] 00:00:00 00:00:00 818 Commun i ty Hospita l [facility] 2022-12-14 2022-12-14 Outpatient [facility] [id number] [place] 18:37:13 18:37:13 0804 F Jeffery 2022-12-13 2022-12-13 Outpatient ERICKSON_R [facility] [id number] [place] 00:00:00 00:00:00 803 Commun i ty Hospita l [facility] 2022-12-12 2022-12-12 Outpatient R PRASANNA VARGAS [facility] [id number] Univers 09:30:00 09:30:00 ity [facility] 2022-11-21 2022-11-21 Emergency X [facility]IR[facility] [id number] Univers 13:08:00 16:45:00 MANJU it y [facility] 2022-11-21 2022-11-21 Emergency Zion [facility]ges 1.2.840.2 [id number] Univers 13:08:00 16:45:00 Manju Newell 52548.1.1 ity of 3.104.2.7 [place] .3.143422 Medica l .8 [place] 2022-11-21 2022-11-21 Travel 1.2.840.1 1.2.077.477 [id number] Univers 00:00:00 00:00:00 95835.1.1 350.1.13.10 ity of 3.104.2.7 4.[place].3.698 [place] .3.000626 084.8 Medica l .8 [place] 2022-11-18 2022-11-18 Outpatient [facility] [id number] [place] 10:08:00 10:08:00 0709 F Jeffery 2022-11-15 2022-11-15 Outpatient R LIAN GREENE [facility] [id number] Univers 09:40:00 09:40:00 LIAN GREENE chino [facility] 2022-11-15 2022-11-15 Orders Niru, 1.2.840.6 [id number] Univers 00:00:00 00:00:00 Only [place] 59332.1.1 ity of 3.104.2.7 [place] .3.952102 Medica l .8 [place] 2022-11-09 2022-11-09 Outpatient SFA [facility] [id number] [place] 15:26:18 15:26:18 0630 F Jeffery 2022-11-06 2022-11-[address] [facility] [id number] Univers 13:00:00 13:00:00 VIJAY ity of [facility] 2022-10-29 2022-10-29 Patient Jc, 1.2.840.1 [id number] Univers 00:00:00 00:00:00 Secure Msg Lian 89635.1.1 ity of 3.104.2.7 [place] .3.184520 Medica l .8 [place] 2022-10-29 2022-10-29 Patient Prasanna Vargas 1.2.840.0 [id number] Univers 00:00:00 00:00:00 Secure Msg Cam 89251.1.1 i ty of 3.104.2.7 [place] .3.600323 Medica l .8 [place] 2022-10-03 2022-10-03 Letter Gurjit Lim [facility] 1.2.840.114 [id number] Univers 00:00:00 00:00:00 (Out) [facility] 350.1.13.10 it y of [place] 4.2.7.2.686 [place] TOÑO?BLEA [id number] Wa whit [place] 2 [place] MEDICAL OFFICE BUILDING 2022-10-02 2022-10-[address] [facility] [id number] Univers 10:00:00 10:00:00 , CELINA it y of [facility] 2022-10-01 2022-10-[address] [facility] [id number] Univers 09:40:00 09:40:00 REJI lechuga o f [facility] 2022-09-25 2022-09-25 [facility] 1..514.480 [id number] Univers 00:00:00 00:00:00 Sendnh [facility] [place] 350.1.13.10 ity of [place].7.2.[place] PROFESS[place] [id number] Wa dicaliyah TORRES 059 [facility] 2022-09-21 2022-09-[address] [facility] [id number] Univers 09:30:00 09:30:00 [facility]22-09-21 2022-09-21 Letter [facility] 1.2.840.114 [id number] Univers 00:00:00 00:00:00 (Out) Riboxx 350.1.13.10 it y of [place] 4.2.7.2.686 [place] TOÑO?BLEA [id number] Wa dicaliyah [place] [address] [place] [address] 2022-09-21 2022-09-21 Telephone [facility] 1.2.681.163 [id number] Univers 00:00:00 00:00:00 Riboxx 350.1.13.10 it y of [place] 4.2.7.2.686 [place] TOÑO?BLEA [id number] Wa dicaliyah [place] [address] [place] [address] 2022-09-21 2022-09-21 Telephone [facility] 1.2.810.381 [id number] Univers 00:00:00 00:00:00 Riboxx 350.1.13.10 it y of [place] 4.2.7.2.686 [place] TOÑO?BLEA [id number] Wa dicaliyah [place] [address] [place] [address] 2022-09-14 2022-09-[address] [facility] [id number] Univers 09:30:00 09:30:00 [facility]22-09-12 2022-09-12 [facility]phone [facility] 1.2.433.837 [id number] Univers 00:00:00 00:00:00 Riboxx 350.1.13.10 it y of [place] 4.2.7.2.686 [place] TOÑO?BLEA [id number] Wa dical MIKI [address] [place] [address] 2022-09-07 2022-09-[address] [facility] [id number] Univers 11:30:00 11:30:00 KASSANDRA ity [facility] 2022-09-05 2022-09-05 Emergency X GUTIERREZ [facility] [id number] Univers 08:44:00 13:15:00 CYNISE itchino [facility] 2022-09-05 2022-09-05 Emergency [facility] 1.2.959.143 [id number] Univers 08:44:00 13:15:00 Cynise LULU 350.1.13.10 i ty [facility] 4[place]2.[place].2.[place] SIMLA [id number] [address] 2022-09-04 2022-09-04 Telephone [facility] 1.2.924.231 [id number] Univers 00:00:00 00:00:00 Kassandra HEALTH 350.1.13.10 it y of [place] 4.2.7.2.686 [place] TOÑO?BLEA [id number] [address] MEDICAL OFFICE [facility] 2022-09-04 2022-09-04 Patient Serra, [facility] 1.2.840.114 [id number] Univers 00:00:00 00:00:00 Secure Msg Rad LAWSON 350.1.13.10 ity of [place].2.7.2.686 [place] [facility] [id number] Wa dical NAL 059 [facility] 2022-08-29 2022-08-[address] [facility] [id number] Univers 09:00:00 09:00:00 , CELINA it y of [facility] 2022-08-14 2022-08-14 Patient Doctor [facility] 1.2.840.114 [id number] Univers 00:00:00 00:00:00 Secure Msg Unassigned, HEALTH 350.1.13.10 ity of [place] 4.2.7.2.686 [place] TOÑO?BLEA [id number] Wa dic[address] MEDICAL OFFICE [facility] 2022-07-31 2022-07-31 Emergency X RIDRAFA, [facility] E[facility] [id number] Univers 17:56:00 20:30:00 CHRISTOPHER it y of [facility] 2022-07-31 2022-07-31 [facility] 1.2.773.347 [id number] Univers 17:56:00 20:30:00 Christadrianaer LULU 350.1.13.10 ity [facility] 4.2.[place].2.[place] [id number] [facility] 084 Branch 2022-07-15 2022-07-15 Outpatient R [facility] [id number] Univers 09:46:45 23:59:00 CARI ity o f [facility] 2022-07-15 2022-07-15 [facility] 1.2.840.114 [id number] Univers 09:46:45 23:59:00 Encounter Cari Farmer [facility] 350.1.13.10 [facility] 4.2.7.2.686 [place] TOÑO?BLEA [id number] [facility] 8[address] [place] MEDICAL OFFICE [facility] 2022-07-15 2022-07-15 [facility] 1.2.840.114 [id number] Univers 09:46:45 23:59:00 Encounter Cari [facility] 350.1.13.10 ity of [place] 4.2.7.2.686 [place] TOÑO?BLEA [id number] [facility] 808 [facility] OFFICE [facility] 2022-07-15 2022-07-15 Urgent NatashaCari draper [facility] 1.2.840 .114 [id number] Univers 09:20:00 10:29:17 Care Unknown, Attending HEALTH 350.1.13.10 ity of [place] 4.2.7.2.686 [place] TOÑO?BLEA [id number] [facility] [address] [place] MEDICAL OFFICE BUILDING 2022-07-15 2022-07-15 Orders Doctor JORDAN 1.2.840.114 [id number] Univers 00:00:00 00:00:00 Only Unassigned, YAZMIN 350.1.13.10 ity of [place] [facility] 4.2.7.2.686 [place] as [id number] [address] 2022-06-23 2022-06-[address] [facility] [id number] Univers 09:20:00 10:27:39 PAUL chino [facility] 2022-06-23 2022-06-23 Urgent Paul Samayoa [facility] 1.2.840. 114 [id number] Univers 09:20:00 10:27:39 Care Unknown, Attending HEALTH 350.1.13.10 ity of [place] 4.2.7.2.686 [place] TOÑO?BLEA [id number] [facility] [address] MEDICAL OFFICE BUILDING 2022-06-23 2022-06-23 Orders Doctor JORDAN 1.2.840.114 [id number] Univers 00:00:00 00:00:00 Only Unassigned, YAZMIN 350.1.13.10 ity of [place] [facility] 4.2.7.2.686 [place] [id number] [address] 2022-06-15 2022-06-15 [facility] [id number] Univers 09:40:00 09:40:00 LIAN [facility] [place] 2022-05-29 2022-05-29 [facility] [id number] Univers 08:00:00 08:00:00 KASSANDRA [facility] 2022-05-15 2022-05-15 [facility] [id number] Univers 09:20:00 09:20:00 BENNETT [facility] 2022-05-11 2022-05-11 [facility] [id number] Univers 09:30:00 09:30:00 KASSANDRA [facility] 2022-05-05 2022-05-05 Emergency X [facility] [id number] Univers 12:26:00 16:11:00 KARON [facility] 2022-05-05 2022-05-05 [facility] [id number] Univers 12:26:00 16:11:00 Karon LAWSON [id number] i ty of PONCE [id number] [facility] [id number] [address] 2022-05-01 2022-05-01 Outpatient R PRASANNA [facility] [id number] Univers 00:00:00 00:00:00 ankush [facility] 2022-04-26 2022-04-26 Emergency X BRIDGES [facility] [id number] Univers 08:30:00 09:59:00 ZION lechuga [facility] 2022-04-26 2022-04-26 Emergency [facility] 1.2.825.204 [id number] Univers 08:30:00 09:59:00 Zion LAWSON 350.1.13.10 i ty of [facility] 4.2.7.2.686 [facility] [id number] [address] 2022-04-25 2022-04-25 Emergency X GUTIERREZ, [facility] ERT [id number] Univers 18:23:00 21:55:00 CYNISE chino [facility] 2022-04-25 2022-04-25 Emergency [facility] 1.2.222.416 [id number] Univers 18:23:00 21:55:00 Kennedy LAWSON 350.1.13.10 i ty of [facility] 4.2.7.2.686 [facility] [id number] [address] 2022-04-19 2022-04-[address] [facility] [id number] Univers 10:00:00 10:00:00 LIAN ankush [facility] 2022-04-12 2022-04-12 Telephone [facility] 1.2.253.206 [id number] Univers 00:00:00 00:00:00 Riboxx 350.1.13.10 it y of [place] 4.2.7.2.686 Martin as TOÑO?BLEA [id number] Wa alessandra[address] MEDICAL OFFICE BUILDING 2022-04-11 2022-04-11 Telephone Patti [facility] 1.2.840.114 [id number] Univers 00:00:00 00:00:00 [facility] 350.1.13.10 ity of [place] 4.2.7.2.686 [place] TOÑO?BLEA [phone] Wa whit [address] MEDICAL OFFICE [facility] 2022-04-10 2022-04-10 Telephone [facility] 1.2.604.697 [id number] Univers 00:00:00 00:00:00 KassandraSkorpi[employer] 350.1.13.10 it y of [place] 4.2.7.2.686 [place] as TOÑO?BLEA [id number] Wa whit [address] OFFICE [facility] 2022-04-09 2022-04-09 Office [facility] 1.2.840.114 [id number] Univers 09:30:00 09:30:00 Visit [facility] 350.1.13.10 it y [facility] 4.2.7.2.686 [place] as TOÑO?BLEA [id number] [address] OFFICE [facility] 2022-04-09 2022-04-09 Outpatient [facility] [id number] Univers 09:30:00 09:21:44 KASSANDRA ity [facility] 2022-04-07 2022-04-07 Emergency X [facility] ERT [id number] Univers 13:41:00 17:49:00 OLAMIDE lechuga [facility] 2022-04-07 2022-04-07 Emergency [place] 1.2.340.173 [id number] Univers 13:41:00 17:49:00 Olamide LAWSON 350.1.13.10 ity of [place].7.2.686 [place] [id number] [facility] [address] 2022-04-07 2022-04-07 Patient Doctor JORDAN 1.2.840.114 [id number] Univers 00:00:00 00:00:00 Secure Msg Unassigned, YAZMIN 350.1.13.10 ity of [place] [facility] 4.2.7.2.686 [place] as [id number] [facility] [address] 2022-04-04 2022-04-04 Telephone [facility] 1.2.740.227 [id number] Univers 00:00:00 00:00:00 Kassandra HEALTH 350.1.13.10 it y of [place] 4.2.7.2.686 [place] as TOÑO?BLEA [id number] Wa whit [address] 2022-04-02 2022-04-[address] [facility] [id number] Univers 10:30:00 10:30:00 KASSANDRA itchino [facility] 2022-03-28 2022-03-28 Patient Doctor [facility] 1.2.840.114 [id number] Univers 00:00:00 00:00:00 Secure Msg [facility], [facility] 350.1.13.10 ity of [place] 4.2.7.2.686 [place] as TOÑO?BLEA [id number] [address] 2022-03-24 2022-03-24 Emergency X PERLA, [facility] ERT [id number] Univers 07:35:00 13:11:00 KELLIE lechuga [facility] 2022-03-24 2022-03-24 Emergency [facility] 1.2.136.207 [id number] Univers 07:35:00 13:11:00 Kellie LAWSON 350.1.13.10 ity of [place] 4.2.7.2.686 [place] [facility] [id number] [address] 2022-03-23 2022-03-[address] [facility] [id number] Univers 10:30:00 10:30:00 KASSANDRA lechuga [facility] 2022-03-23 2022-03-23 Telephone [facility] 1.2.840.114 [id number] Univers 00:00:00 00:00:00 [facility] 350.1.13.10 ity of [place] 4.2.7.2.686 [place] as TOÑO?BLEA [id number] [address] 2022-03-22 2022-03-22 Telephone Patti [facility] 1.2.840.114 [id number] Univers 00:00:00 00:00:00 [facility] 350.1.13.10 ity of [facility] 4.2.7.2.686 [place] as TOÑO?BLEA [id number] [address] 2022-03-22 2022-03-22 Refill [facility] 1.2.840.114 [id number] Univers 00:00:00 00:00:00 [facility] 350.1.13.10 ity [facility] 4.2.7.2.686 [place] as TOÑO?BLEA [id number] [address] 2022-03-21 2022-03-21 [facility] 1.2.840.114 [id number] Univers 00:00:00 00:00:00 [facility] 350.1.13.10 ity of [place] 4.2.7.2.686 [place] as TOÑO?BLEA [id number] [address] 2022-03-15 2022-03-[address] [facility] [id number] Univers 14:00:00 14:36:19 [facility] ity o f [facility] 2022-03-15 2022-03-15 Office [facility] 1.2.840.114 [id number] Univers 14:00:00 14:36:19 [facility] 350.1.13.10 ity of [place] 4.2.7.2.686 [place] [facility] [phone] [facility] 059 [facility] 2022-03-15 2022-03-15 Emergency X [facility] ERT [id number] Univers 08:40:00 10:47:00 ANNA ity [facility] 2022-03-15 2022-03-15 Emergency [facility] 1.2.840.114 9 [id number] Univers 08:40:00 10:47:00 Anna [place] 350.1.13.10 i ty of [facility] 4.2.7.2.686 [place] [id number] [address] 2022-03-14 2022-03-14 Outpatient R ALICIA PRASANNA [facility] [id number] Univers 10:30:00 10:30:00 ity [facility] 2022-03-11 2022-03-11 Emergency X FELICE [facility] ERT [id number] Univers 09:22:00 12:15:00 SHINTA ity [facility] 2022-03-11 2022-03-11 Emergency [facility] 1.2.840.114 [id number] Univers 09:22:00 12:15:00 Shinta [place] 350.1.13.10 i ty of [place] 4.2.7.2.686 [place] [facility] [phone] [address] 2022-03-06 2022-03-[address] [facility] [id number] Univers 08:30:00 08:30:00 KASSANDRA [facility] 2022-03-02 2022-03-02 Telephone Patti [facility] 1..840.114 [id number] Univers 00:00:00 00:00:00 [employer] 350.1.13.10 ity of [place] 4.2.7.2.686 [place] TOÑO?BLEA [phone] [address] MEDICAL OFFICE [facility] 2022-02-28 2022-02-28 Patient Doctor [facility] 1..840.114 [id number] Univers 00:00:00 00:00:00 Secure Msg Unassigned, [facility] 350.1.13.10 ity of [place] 4.2.7.2.686 [place] as TOÑO?BLEA [id number] [address] MEDICAL OFFICE [facility] 2022-02-27 2022-02-[address] [facility] [id number] Univers 09:30:00 09:49:42 KASSANDRA chino [facility] 2022-02-27 2022-02-27 Office [facility] 1..840.114 [id number] Univers 09:30:00 09:49:42 Visit Riboxx 350.1.13.10 it y of [place] 4.2.7.2.686 [place] as TOÑO?BLEA [id number] Wa whit [place] [address] MEDICAL OFFICE [facility] 2022-02-27 2022-02-27 Office Juan [facility] 1.2.840.114 [id number] Univers 08:00:00 09:12:17 Visit Vijay PETTY 350.1.13.10 it y of [place] 4.2.7.2.686 [place] as TOÑO?BLEA [id number] [facility] 044 [facility] OFFICE [facility] 2022-02-26 2022-02-[address] [facility] [id number] Univers 11:30:00 11:30:00 KASSANDRA ankush [facility] 2022-02-21 2022-02-21 Emergency X [facility] ERT [id number] Univers 01:20:00 03:44:00 MAGGIE lechuga [facility] 2022-02-21 2022-02-21 Emergency [facility] 1.2.840.114 [id number] Univers 01:20:00 03:44:00 [facility] 350.1.13.10 ity of [place].2.7.2.686 [place] [id number] [address] 2022-02-19 2022-02-19 Patient [facility] 1.2.840.114 [id number] Univers 00:00:00 00:00:00 Secure Msg Kendal Amaral [facility] 350.1.13.10 ity of [place] 4.2.7.2.686 [place] as TOÑO?BLEA [id number] Wa whit [place] [address] [place] [address] MEDICAL OFFICE [facility] 2022-02-19 2022-02-19 Patient [facility] 1.2.840.114 [id number] Univers 00:00:00 00:00:00 Secure Msg Kendal Amaral HEALTH 350.1.13.10 ity of [place] 4.2.7.2.686 [place] as TOÑO?BLEA [id number] Wa whit [place] [address] [place] [address] MEDICAL OFFICE [facility] 2022-02-19 2022-02-19 Patient Suzette [facility] 1.2.335.803 [id number] Univers 00:00:00 00:00:00 Secure Msg Ade WATERSY 350.1.13.10 ity of [facility] 4.2.7.2.686 [place] [id number] [facility] [address] 2022-02-19 2022-02-19 Patient Martin [facility] 1.2.840.114 [id number] Univers 00:00:00 00:00:00 Secure Msg Ross R CORE FILER 350.1.13.[address] [facility] 4.2.7.2.686 [place] as MATERNAL [phone] Med ical & CHILD [address] [place] [address] 2022 2022 Emergency X [facility] ERT [id number] Univers 11:58:00 15:13:00 MAGGIE lechuga [facility] 2022 2022 Emergency [facility] 1.2.840.114 [id number] Univers 11:58:00 15:13:00 Maggie LAWSON 350.1.13.10 ity [facility] 4.2.7.2.686 [place] [facility] [phone] [facility] [address] 2022-02-09 2022-02-09 Outpatient R BRANDON, [facility] [id number] Univers 09:00:00 09:00:00 CRICKET davis [facility] 2022-02-06 2022-02-[address] [facility] [id number] Univers 10:00:00 10:00:00 VIJAY lechuga [facility] 2022-02-05 2022-02-05 Nurse Nurse, Filippo [facility] 1.2.840.114 [id number] Univers 09:45:00 10:05:00 Visit [facility] 350.1.13.10 ity [facility] 4.2.7.2.686 [place] as TOÑO?BLEA [id number] Wa whit [address] MEDICAL OFFICE BUILDING 2022-02-05 2022-02-[address] [facility] [id number] Univers 09:20:00 09:20:00 FLACO davis [facility] 2022-01-26 2022-01-26 Prasanna Gimenez [facility] 1.2.803.292 [id number] Univers 00:00:00 00:00:00 Management Jm LAWSON 350.1.13.10 ity [facility] 4.2.7.2.686 [place] [facility] [id number] Wa dical [address] 2022-01-22 2022-01-[address] [facility] [id number] Univers 11:00:00 11:00:00 VIJAY ity of [facility] 2022-01-19 2022-01-19 Patient Doctor JORDAN 1.2.840.114 [id number] Univers 00:00:00 00:00:00 Secure Msg Unassigned, YAZMIN 350.1.13.10 ity [facility] 4.2.7.2.686 [facility] [id number] [facility] [address] 2022-01-18 2022-01-18 Emergency X GARDENIA [facility] ERT [id number] Univers 05:17:00 10:25:00 [facility] 2022-[facility]-18 2022-01-18 Emergency Jayy Kennedy W TRAUMA 1.2.840.11 4 [id number] Univers 05:17:00 10:25:00 Bernardo Levy [facility] 350.1.13.10 ity [place].2.7.2.686 [facility] [id number] [facility] [address] 2022-01-15 2022-01-15 Emergency X DANITA [facility] ERT [id number] Univers 08:34:00 10:49:00 MAURA lechuga [facility] 2022-01-15 2022-01-15 Emergency Ana Richelleayanna R [facility] 1.2.840.1 14 [id number] Univers 08:34:00 10:49:00 Maura Samayoa 350.1.13.10 ity [facility] 4.2.7.2.686 [facility] [phone] [facility] [address] 2022-01-08 2022-01-08 Emergency X GABRIELA [facility] ERT [id number] Univers 18:04:00 20:09:00 [facility]O [facility] 2022-01-08 2022-01-08 Emergency Gabriela, [facility] 1.2.840.114 [id number] Univers 18:04:00 20:09:00 Humberto LAWSON 350.1.13.10 i ty of [facility] 4.2.7.2.686 [facility] [id number] [address] 2021-12-12 2021-12-[address] [facility] [id number] Univers 13:30:00 13:40:21 [facility] 2021-12-12 2021-12-12 Office VargasPrasanna Jm [facility] 1..840.114 [id number] Univers 13:30:00 13:40:21 Visit Teto Carnes 350.1.13.10 ity [facility] 4.2.7.2.686 [facility] [phone] [place] dical [address] 2021-12-12 2021-12-[address] [facility] [id number] Univers 13:30:00 13:40:21 [facility] 2021-12-12 2021-12-[address] [facility] [id number] Univers 13:30:00 13:40:21 [facility] 2021-12-11 2021-12-11 Outpatient R SUZETTE, [facility] [id number] Univers 16:15:00 16:15:00 ADE [facility] 2021-12-05 2021-12-05 Outpatient R LYSSA, [facility] [id number] Univers 14:15:00 14:15:00 ROMULO [facility] 2021-11-28 2021-11-28 Emergency X ERROL, [facility] ERT [id number] Univers 08:49:00 11:02:00 KARON [facility] 2021-11-28 2021-11-28 Emergency [facility] 1..840.114 [id number] Univers 08:49:00 11:02:00 Karon LAWSON 350.1.13.10 i ty of [place] 4.2.7.2.686 [facility] [id number] [address] 2021-11-28 2021-11-28 Patient Sushmagracie [facility] 1.2.035.842 [id number] Univers 00:00:00 00:00:00 Secure Msg Cricket Lopez CORE FILER 350.1.13.[address] [facility] 4.2.7.2.686 [place] as MATERNAL [phone] [facility] & [address] 2021-11-24 2021-11-24 Emergency X DEV, K [facility] ERT [id number] Univers 18:14:00 21:04:00 ity of [facility] 2021-11-24 2021-11-24 Emergency Dev, [facility] 1.2.840.114 [id number] Univers 18:14:00 21:04:00 Sharlene [place] 350.1.13.10 i ty of [place] 4.2.7.2.686 [facility] [id number] [address] 2021-11-24 2021-11-24 Telephone Addisongracie [facility] 1.2.840.114 [id number] Univers 00:00:00 00:00:00 Cricket Lopez CORE FILER 350.1.13.[address] [facility] 4.2.7.2.686 [place] as MATERNAL [id number] [address] 2021-11-20 2021-11-20 Patient Robb [facility] 1.2.840.114 [id number] Univers 00:00:00 00:00:00 Secure Msg Kendal [facility] 350.1.13.10 ity [facility] 4.2.7.2.686 [place] as TOÑO?BLEA [phone] Wa alessandra[address] MEDICAL OFFICE BUILDING 2021-11-19 2021-11-19 Letter JORDAN Santacruz 1.2.840.114 [id number] Univers 00:00:00 00:00:00 (Out) Leslie ARCE 350.1.13.10 it y of [facility] 4.2.7.2.686 [place] as [id number] [address] 2021-11-18 2021-11-18 Outpatient [facility] [id number] Univers 10:41:40 23:59:00 FLACO lechuga o f [facility] 2021-11-18 2021-11-18 Hospital [facility] 1.2.392.081 [id number] Univers 10:41:40 23:59:00 Encounter [facility] 350.1.13.10 ity of [place] 4.2.7.2.686 [place] as TOÑO?BLEA [id number] Me dical MIKI [address] MEDICAL OFFICE [facility] 2021-11-18 2021-11-18 Urgent [facility] 1.2.840.114 [id number] Univers 10:20:00 10:53:20 Care [facility] 350.1.13.10 i ty of [place] 4.2.7.2.686 [place] as TOÑO?BLEA [id number] Me whit [place] [address] [facility] OFFICE [facility] 2021-11-09 2021-11-09 Outpatient R [facility] [id number] Univers 10:30:00 10:30:00 CELINA lechuga [facility] 2021-10-25 2021-10-25 Urgent Ileana Medrano [facility] ..840.114 9 [id number] Univers 13:20:00 13:20:00 Care [facility] 350.1.13.10 it[facility] 4.2.7.2.686 [place] as TOÑO?BLEA [phone] Wa dicaliyah [place] 370 [facility] OFFICE [facility] 2021-10-25 2021-10-25 Outpatient R [facility] [id number] Univers 13:20:00 12:47:59 ILEANA lechuga [facility] 2021-10-25 2021-10-25 Patient [facility] 1.2.840.114 [id number] Univers 00:00:00 00:00:00 Secure [facility] [employer] via [place] 350.1.13.10 ity of [place] 4.2.7.2.686 [place] as TOÑO?BLEA [id number] Me dical IVÁNEY [address] MEDICAL OFFICE [facility] 2021-10-25 2021-10-25 Telephone Cotta, [facility] 1.2.203.589 [id number] Univers 00:00:00 00:00:00 Vijay HEALTH 350.1.13.10 it y of [place] 4.2.7.2.686 [place] as TOÑO?BLEA [id number] [facility] 044 [facility] OFFICE [facility] 2021-10-25 2021-10-25 Telephone Provider, [facility] 1.2.840.114 [id number] Univers 00:00:00 00:00:00 Ang Db HEALTH 350.1.13.10 it y of Urgent Care [place] 4.2.7.2.686 [place] TOÑO?BLEA [id number] [facility] [address] MEDICAL OFFICE [facility] 2021-10-25 2021-10-25 Telephone Nurse, Filippo [facility] 1.2.840.114 [id number] Univers 00:00:00 00:00:00 Db Urgent HEALTH 350.1.13.10 ity of Care [place] 4.2.7.2.686 [place] as TOÑO?BLEA [id number] [facility] 370 [facility] OFFICE [facility] 2021-10-24 2021-10-[address] [id number] Univers 10:15:00 10:15:00 ROMULO [facility] 2021-10-24 2021-10-[address] [id number] Univers 10:15:00 10:15:00 ROMULO [facility] 2021-10-11 2021-10-[address] [id number] Univers 09:30:00 09:30:00 ROMULO [facility] 2021-10-10 2021-10-[address] [facility] [id number] Univers 13:30:00 13:30:00 ity [facility] 2021-10-10 2021-10-[address] [facility] [id number] Univers 13:30:00 13:30:00 ity [facility] 2021-10-10 2021-10-10 Outpatient R PRASANNA VARGAS [facility] [id number] Univers 13:30:00 13:30:00 ity of [facility] 2021-10-10 2021-10-10 Outpatient [facility] [id number] Univers 13:30:00 13:30:00 ity of [facility] 2021-10-10 2021-10-10 Outpatient R PRASANNA VARGAS [facility] [id number] Univers 13:30:00 13:30:00 ity of [facility] 2021-10-10 2021-10-10 Outpatient R ALICIA [facility] [id number] Univers 13:30:00 13:30:00 ity of [facility] 2021-10-10 2021-10-10 Outpatient R [facility] [id number] Univers 13:30:00 13:30:00 ity of [facility] 2021-10-05 2021-10-05 Patient Robb [facility] 1.2.840.114 [id number] Univers 00:00:00 00:00:00 Secure Msg Kendal Amaral HEALTH 350.1.13.10 ity of [place] 4.2.7.2.686 [place] as TOÑO?BLEA [id number] [address] OFFICE [facility] 2021-10-05 2021-10-05 Patient Robb [facility] 1.2.840.114 [id number] Univers 00:00:00 00:00:00 Secure g Kendal Amaral HEALTH 350.1.13.10 ity of [place] 4.2.7.2.686 [place] as TOÑO?BLEA [phone] [address] MEDICAL OFFICE [facility] 2021-10-04 2021-10-04 Pre Visit HILARIO Rodriguez 1.2.362.512 [id number] Univers 00:00:00 00:00:00 Outreach Melia TELLO 350.1.13.10 [place]y of [place]2.7.2.686 [place] [id number] [address] 2021-09-28 2021-09-28 Office Apurva [facility] 1.2.840.114 [id number] Univers 13:30:00 13:45:00 Visit Celina Cannon FLAC[facility] 350.1.13.10 [facility] 4.2.7.2.686 [place] [id number] [address] 2021-09-28 2021-09-28 Outpatient [facility] [id number] Univers 13:30:00 13:30:00 CELINA [facility] 2021-09-28 2021-09-28 Outpatient R [facility] [id number] Univers 13:30:00 13:30:00 [facility] 2021-09-28 2021-09-28 Patient [facility] 1.2.840.114 [id number] Univers 00:00:00 00:00:00 Secure Msg Celina Cannon FLACO 350.1.13.10 [facility] 4.2.7.2.686 [place] [phone] [address] 2021-09-27 2021-09-[address] [facility] [id number] Univers 14:00:00 14:00:00 TETO [facility] 2021-09-27 2021-09-27 Outpatient R [facility] [id number] Univers 09:30:00 09:30:00 [facility] 2021-09-27 2021-09-[address] [facility] [id number] Univers 09:30:00 09:30:00 [facility] 2021-09-27 2021-09-27 [facility] [id number] Univers 09:30:00 09:30:00 [facility] 2021-09-26 2021-09-26 Outpatient R AKINLYNSEY, [facility] [id number] Univers 10:45:00 10:45:00 CRICKET ity o f [facility] 2021-09-26 2021-09-[address] [facility] [id number] Univers 10:45:00 10:45:00 CRICKET ity o f [facility] 2021-09-26 2021-09-26 [facility] [id number] Univers 00:00:00 00:00:00 Secure [facility] [id number] ity of [place] [id number] [place] as TOÑO?BLEA [phone] Me dicaliyah [facility] 044 Aber[place]athy MEDICAL OFFICE [facility] 2021-09-26 2021-09-26 Patient Juan [facility] [id number] Univers 00:00:00 00:00:00 Secure [facility] Vijay HEALTH [id number] ity of [place] [id number] [place] TOÑO?BLEA [phone] [facility] 044 [facility] OFFICE [facility] 2021-09-25 2021-09-25 Urgent Flaco Boyd [facility] [id number]. [id number] Univers 10:20:00 11:10:42 [facility] [id number] ity of [place] [id number] [place] as TOÑO?BLEA [phone] [facility] 370 [facility] OFFICE [facility] 2021-09-25 2021-09-[address] [facility] [id number] Univers 10:20:00 11:10:42 FLACO fitzpatrick [facility] 2021-09-25 2021-09-[address] [facility] [id number] Univers 10:20:00 10:20:00 FLACO lechuga o [facility] 2021-09-25 2021-09-25 Outpatient R PRASANNA VARGAS [facility] [id number] Univers 10:00:00 10:00:00 ity [facility] 2021-09-25 2021-09-25 [facility] [id number] Univers 00:00:00 00:00:00 [facility] [id number] i ty of [place] 4.2.7.2.686 [place] as TOÑO?BLEA [phone] Me dical KNEY [address] MEDICAL OFFICE [facility] 2021-09-25 2021-09-25 Patient Prasanna Vargas [facility] 1.2.826.735 [id number] Univers 00:00:00 00:00:00 Secure Msg Cam [place] 350.1.13.10 ity of [place].2.[place] [phone] Wa dical NAL 134 [facility] 2021-09-25 2021-09-25 Telephone Brandon [facility] 1.2.840.114 [id number] Univers 00:00:00 00:00:00 Cricket C CORE FILER 350.1.13.[address] [facility] 4.2.7.2.686 [place] as MATERNAL [phone] Med ical & CHILD 107 [facility] 2021-09-25 2021-09-25 Telephone Apurva [facility] 1.2.271.081 [id number] Univers 00:00:00 00:00:00 Celina SAM 350.1.13.10 ity of [facility] 4.2.7.2.686 [place] [id number] [address] 2021-09-15 2021-09-15 Patient Robb [facility] 1.2.840.114 [id number] Univers 00:00:00 00:00:00 Secure Msg Kendal Munir HEALTH 350.1.13.10 ity of [place] 4.2.7.2.686 [place] TOÑO?BLEA [phone] Wa dicaliyah [place] [address] MEDICAL OFFICE [facility] 2021-09-15 2021-09-15 Patient Robb [facility] 1.2.840.114 [id number] Univers 00:00:00 00:00:00 Secure Msg Kendal M HEALTH 350.1.13.10 ity of [place] 4.2.7.2.686 [place] TOÑO?BLEA [phone] Wa dicaliyah [place] 044 [facility] OFFICE [facility] 2021-09-15 2021-09-15 Patient Robb [facility] 1.2.840.114 [id number] Univers 00:00:00 00:00:00 Secure Msg Kendal M HEALTH 350.1.13.10 [facility] 4.2.7.2.686 [place] TOÑO?BLEA [phone] [address] MEDICAL OFFICE [facility] 2021-09-14 2021-09-14 Patient Juan [facility] 1.2.840.114 [id number] Univers 00:00:00 00:00:00 Secure Msg Vijay HEALTH 350.1.13.10 ity [facility] 4.2.7.2.686 [place] TOÑO?BLEA [phone] [address] OFFICE [facility] 2021-09-14 2021-09-14 Patient Doctor [facility] 1.2.840.114 [id number] Univers 00:00:00 00:00:00 Secure Msg Unassigned, HEALTH 350.1.13.10 ity of [place] 4.2.7.2.686 [place] as TOÑO?BLEA [id number] [address] OFFICE [facility] 2021-09-12 2021-09-[address] [facility] [id number] Univers 10:30:00 10:30:00 CELINA lechuga [facility] 2021-09-12 2021-09-[address] [facility] [id number] Univers 10:30:00 10:30:00 CELINA lechuga [facility] 2021-09-12 2021-09-12 Patient Meet [facility] 1.2.840.114 [id number] Univers 00:00:00 00:00:00 Secure Msg Daniel CRAIG 350.1.13.10 ity of [place].2.[place] [phone] [facility] AND [place] [address] [facility] 2021-09-12 2021-09-12 Orders Doctor JORDAN 1.2.840.114 [id number] Univers 00:00:00 00:00:00 Only Unassigned, YAZMIN 350.1.13.10 ity of [place] [facility] 4.2.7.2.686 [place] as [phone] [facility] [address] 2021-09-12 2021-09-12 Patient Juan [facility] 1.2.840.114 [id number] Univers 00:00:00 00:00:00 Secure Msg Vijay HEALTH 350.1.13.10 ity of [place] 4.2.7.2.686 [place] as TOÑO?BLEA [phone] [address] MEDICAL OFFICE BUILDING 2021-09-05 2021-09-05 Patient Juan [facility] 1.2.840.114 [id number] Univers 00:00:00 00:00:00 Secure Msg Vijay HEALTH 350.1.13.10 ity of [place] 4.2.7.2.686 [place] TOÑO?BLEA [id number] [address] MEDICAL OFFICE [facility]ILDING 2021-09-05 2021-09-05 Patient Doctor JORDAN 1.2.840.114 [id number] Univers 00:00:00 00:00:00 Secure Msg Unassigned, YAZMIN 350.1.13.10 ity of [place] [facility] 4.2.7.2.686 [place] as [phone] [address] 2021-09-05 2021-09-05 Patient Doctor JORDAN 1.2.840.114 [id number] Univers 00:00:00 00:00:00 Secure Msg Unassigned, YAZMIN 350.1.13.10 ity of [place] [facility] 4.2.7.2.686 [place] as [phone] [address] 2021-09-04 2021-09-04 Patient Juan [facility] 1.2.840.114 [id number] Univers 00:00:00 00:00:00 Secure Msg Vijay HEALTH 350.1.13.10 ity of [place] 4.2.7.2.686 [place] TOÑO?BLEA [id number] [address] MEDICAL OFFICE BUILDING 2021-08-28 2021-08-28 Patient Melvin [facility] 1.2.840.114 [id number] Univers 00:00:00 00:00:00 Secure Msg Shancy K MULTISPEC 350.1.13.10 ity of [place] 4[place]2.7.2.[place] [phone] [address] [facility] 2021-08-25 2021-08-25 Telephone Aditi [facility] 1.2.840.114 [id number] Univers 00:00:00 00:00:00 Dania L HEALTH 350.1.13.10 it y of [place] 4.2.7.2.686 [place] TOÑO?BLEA [phone] Me whit [place] [address] MEDICAL OFFICE [facility] 2021-08-25 2021-08-25 Patient Juan [facility] 1.2.840.114 [id number] Univers 00:00:00 00:00:00 Secure Msg Vijay HEALTH 350.1.13.10 ity of [place] 4.2.7.2.686 [place] TOÑO?BLEA [phone] Wa whit [place] [address] MEDICAL OFFICE [facility] 2021-08-24 2021-08-24 Telephone Juan [facility] 1.2.458.482 [id number] Univers 00:00:00 00:00:00 Vijay HEALTH 350.1.13.10 it y of [place] 4.2.7.2.686 [place] as TOÑO?BLEA [id number] Wa whit [place] [address] MEDICAL OFFICE [facility]ILD[facility] 2021-08-24 2021-08-24 Patient Juan [facility] 1.2.840.114 [id number] Univers 00:00:00 00:00:00 Secure Msg Vijay HEALTH 350.1.13.10 ity of [place] 4.2.7.2.686 [place] as TOÑO?BLEA [phone] Wa whit [place] [address] MEDICAL OFFICE BUILDING 2021-08-23 2021-08-23 Patient Juan [facility] 1.2.840.114 [id number] Univers 00:00:00 00:00:00 Secure Msg Vijay HEALTH 350.1.13.10 ity of [place] 4.2.7.2.686 [place] as TOÑO?BLEA [phone] Wa whit [place] [address] MEDICAL OFFICE BUILDING 2021-08-23 2021-08-23 Telephone Juan [facility] 1.2.817.523 [id number] Univers 00:00:00 00:00:00 Vijay HEALTH 350.1.13.10 it y of [place] 4.2.7.2.686 [place] as TOÑO?BLEA [phone] Wa dical KNEY 044 [facility] OFFICE [facility] 2021-08-22 2021-08-22 Telephone [facility] 1.2.255.071 [id number] Univers 00:00:00 00:00:00 Vijay HEALTH 350.1.13.10 it y of [place] 4.2.7.2.686 [place] TOÑO?BLEA [id number] Wa dical KNEY 044 [facility] OFFICE [facility] 2021-08-22 2021-08-22 Patient [facility] 1.2.840.114 [id number] Univers 00:00:00 00:00:00 Secure Msg Hallie HEALTH 350.1.13.10 ity of [place] 4.2.7.2.686 [place] as TOÑO?BLEA [phone] Wa dical KNEY [address] [place] [address] 2021-08-18 2021-08-18 Telephone [facility] 1.2.838.785 [id number] Univers 00:00:00 00:00:00 Vijay HEALTH 350.1.13.10 it y of [place] 4.2.7.2.686 [place] as TOÑO?BLEA [phone] Wa dical KNEY [address] [place] [address] 2021-08-17 2021-08-[address] [facility] [id number] Univers 09:00:00 09:00:00 CELINA lechuga [facility] 2021-08-17 2021-08-[address] [facility] [id number] Univers 09:00:00 09:00:00 CELINA ity of [facility] 2021-08-17 2021-08-17 Patient Prasanna Vargas [facility] 1.2.615.578 [id number] Univers 00:00:00 00:00:00 Secure Msg Cam [place] 350.1.13.10 ity of [place]2.[place] [phone] Me dical NAL 134 [facility] 2021-08-17 2021-08-17 [facility] 1.2.840.114 [id number] Univers 00:00:00 00:00:00 Secure Msg Vijay HEALTH 350.1.13.10 ity of [place] 4.2.7.2.686 [place] as TOÑO?BLEA [phone] [address] MEDICAL OFFICE [facility] 2021-08-17 2021-08-17 Patient Juan, [facility] 1.2.840.114 [id number] Univers 00:00:00 00:00:00 Secure Msg Vijay HEALTH 350.1.13.10 ity of [place] 4.2.7.2.686 [place] as TOÑO?BLEA [phone] [address] MEDICAL OFFICE [facility] 2021-08-16 2021-08-16 Patient Juan [facility] 1.2.840.114 [id number] Univers 00:00:00 00:00:00 Secure Msg Vijay HEALTH 350.1.13.10 ity of [place] 4.2.7.2.686 [place] as TOÑO?BLEA [id number] [address] MEDICAL OFFICE [facility] 2021-08-16 2021-08-16 Patient Doctor [facility] 1.2.840.114 [id number] Univers 00:00:00 00:00:00 Secure Msg Unassigned, HEALTH 350.1.13.10 ity of [place] 4.2.7.2.686 [place] as TOÑO?BLEA [phone] [address] MEDICAL OFFICE [facility] 2021-08-16 2021-08-16 Patient Juan [facility] 1.2.840.114 [id number] Univers 00:00:00 00:00:00 Secure Msg Vijay HEALTH 350.1.13.10 ity of [place] 4.2.7.2.686 [place] as TOÑO?BLEA [phone] [address] MEDICAL OFFICE [facility] 2021-08-16 2021-08-16 Patient Juan [facility] 1.2.840.114 [id number] Univers 00:00:00 00:00:00 Secure Msg Vijay HEALTH 350.1.13.10 ity of [place] 4.2.7.2.686 [place] as TOÑO?BLEA [phone] Me whit [place] 044 [facility] OFFICE [facility] 2021-08-15 2021-08-15 Office [facility] 1.2.840.114 [id number] Univers 15:30:00 16:16:42 Visit [facility] 350.1.13.10 it y of [place] 4.2.7.2.686 [place] as TOÑO?BLEA [phone] Me whit [place] 198 [facility] 2021-08-15 2021-08-15 [facility] [id number] Univers 15:30:00 16:16:42 [facility] 2021-08-15 2021-08-15 Outpatient [facility] [id number] Univers 15:30:00 15:30:00 [facility] 2021-08-15 2021-08-15 Outpatient [facility] [id number] Univers 15:30:00 15:30:00 [facility] 2021-08-15 2021-08-15 Outpatient Farzana [facility] [id number] Univers 15:30:00 15:30:00 [facility] 2021-08-15 2021-08-15 Emergency Aj [facility] E[facility] [id number] Univers 09:27:00 12:26:00 [facility] 2021-08-15 2021-08-15 [facility] 1.2.832.134 [id number] Univers 09:27:00 12:26:00 Maura LAW[place] 350.1.13.10 ity of [place]2.7.2.686 [place] [facility] [phone] [address] 2021-08-15 2021-08-15 Emergency X [facility] ERT [id number] Univers 09:27:00 12:26:00 MAURA [facility] 2021-08-15 2021-08-15 Patient Doctor JORDAN 1.2.840.114 [id number] Univers 00:00:00 00:00:00 Secure Msg Unassigned, YAZMIN 350.1.13.10 ity of [place] [facility] 4.2.7.2.686 Martin as [phone] [address] 2021-08-14 2021-08-[address] [facility] [id number] Univers 13:25:00 23:59:00 VIJAY lechuga [facility] 2021-08-14 2021-08-[address] [facility] [id number] Univers 13:25:00 23:59:00 VIJAY lechuga [facility] 2021-08-14 2021-08-[address] [facility] [id number] Univers 13:25:00 13:25:00 VIJAY lechuga [facility] 2021-08-14 2021-08-[address] [facility] [id number] Univers 12:19:07 13:24:00 VIJAY lechuga [facility] 2021-08-14 2021-08-[address] [facility] [id number] Univers 12:19:07 13:24:00 VIJAY lechuga [facility] 2021-08-14 2021-08-14 [employer], Ang - Db [facility] 1.2.840.1 14 [id number] Univers 12:30:00 13:01:24 Visit Vijay Martinez 350.1.13.10 ity of [place] 4.2.7.2.686 [place] as TOÑO?BLEA [phone] [address] OFFICE [facility] 2021-08-14 2021-08-14 School [employer] Lab, Ang - Db [facility] 1.2.840.1 14 [id number] Univers 12:30:00 12:45:00 Visit Vijay Martinez 350.1.13.10 ity of [place] 4.2.7.2.686 [place] as TOÑO?BLEA [id number] [address] OFFICE BUILDING 2021-08-14 2021-08-14 Office Juan [facility] 1.2.840.114 [id number] Univers 11:30:00 12:31:12 Visit Vijay PETTY 350.1.13.10 it y of [place] 4.2.7.2.686 [place] as TOÑO?BLEA [phone] Wa whit [address] MEDICAL OFFICE [facility] 2021-08-14 2021-08-[address] [facility] [id number] Univers 11:30:00 12:31:12 VIJAY lechuga [facility] 2021-08-14 2021-08-14 [facility] 1.2.840.114 [id number] Univers 00:00:00 00:00:00 Secure Msg Vijay HEALTH 350.1.13.10 ity of [facility] 4.2.7.2.686 [place] as TOÑO?BLEA [phone] Wa whit [address] MEDICAL OFFICE [facility] 2021-08-14 2021-08-14 Patient [facility] 1.2.840.114 [id number] Univers 00:00:00 00:00:00 Secure Msg Vijay HEALTH 350.1.13.10 ity of [place] 4.2.7.2.686 Martin as TOÑO?BLEA [phone] Wa [address]ess[address] MEDICAL OFFICE [facility] 2021-08-09 2021-08-[address] [facility] [id number] Univers 14:45:00 14:45:00 ADÁN chino [facility] 2021-08-09 2021-08-09 [facility]phone [facility] 1.2.519.314 [id number] Univers 00:00:00 00:00:00 Vijay HEALTH 350.1.13.10 it y of [facility] 4.2.7.2.686 [place] TOÑO?BLEA [phone] [address] MEDICAL OFFICE [facility] 2021-08-08 2021-08-08 [facility] [id number] Univers 11:30:00 23:59:00 VIJAY chino [facility] 2021-08-08 2021-08-08 Hospital [facility] 1.2.840.114 [id number] Univers 11:30:00 23:59:00 Encounter Vijay HEALTH 350.1.13.10 ity of [facility] 4.2.7.2.686 [place] TOÑO?BLEA [phone] Wa whit [place] 808 [facility] OFFICE [facility] 2021-08-08 2021-08-[address] [facility] [id number] Univers 11:15:00 11:15:00 VIJAY lechuga [facility] 2021-08-08 2021-08-[address] [facility] [id number] Univers 11:00:00 11:00:00 VIJAY lechuga [facility] 2021-08-08 2021-08-08 Patient Doctor JORDAN 1.2.840.114 [id number] Univers 00:00:00 00:00:00 Secure Msg Unassigned, YAZMIN 350.1.13.[address] [facility] 4.2.7.2.686 [place] as [id number] [address] 2021-08-07 2021-08-07 [facility] 1.2.840.114 [id number] Univers 09:30:00 10:23:21 Visit Vijay Business e via [place] 350.1.13.10 it y of [place] 4.2.7.2.686 [place] as TOÑO?BLEA [phone] Wa whit MARY [address] [place] [address] OFFICE [facility] 2021-08-07 2021-08-[address] [facility] [id number] Univers 09:30:00 10:23:21 VIJAY lechuga [facility] 2021-08-07 2021-08-[address] [facility] [id number] Univers 09:30:00 09:30:00 VIJAY lechuga [facility] 2021-08-07 2021-08-07 [facility] 1.2.840.114 [id number] Univers 00:00:00 00:00:00 Secure Msg Vijay HEALTH 350.1.13.10 ity of [place] 4.2.7.2.686 [place] as TOÑO?BLEA [phone] Wa whit [place] [address] [place] [address] MEDICAL OFFICE [facility] 2021-08-07 2021-08-07 Patient [facility] 1.2.840.114 [id number] Univers 00:00:00 00:00:00 Secure Msg Vijay HEALTH 350.1.13.10 ity of [place] 4.2.7.2.686 [place] as TOÑO?BLEA [phone] Wa whit [address] MEDICAL OFFICE BUILDING 2021-08-07 2021-08-07 Patient Apurva [facility] 1.2.840.114 [id number] Univers 00:00:00 00:00:00 Secure Msg Celina A FLACO 350.1.13.10 ity of [facility] 4.2.7.2.686 [place] [id number] [address] 2021-08-04 2021-08-[address] [facility] [id number] Univers 10:00:00 10:00:00 PETRA ity [facility] 2021-08-04 2021-08-04 [facility] 1.2.840.114 [id number] Univers 00:00:00 00:00:00 Secure Mslaila Penaloza HEALTH 350.1.13.10 ity of [place] 4.2.7.2.686 [place] as TOÑO?BLEA [id number] [address] MEDICAL OFFICE [facility] 2021-08-03 2021-08-03 Office SOURAV Diaz 1.2.840.114 [id number] Univers 11:00:00 12:48:43 Visit Jayy Y 350.1.13.10 it y of [facility] 4.2.7.2.686 [place] as BANK [phone] [address] 2021-08-03 2021-08-[address] [facility] [id number] Univers 11:00:00 12:48:43 JAYY ity [facility] 2021-08-03 2021-08-[address] [facility] [id number] Univers 11:00:00 11:00:00 JAYY ankush [facility] 2021-08-03 2021-08-03 Patient [facility] 1.2.840.114 [id number] Univers 00:00:00 00:00:00 Secure Msg Celina A FLACO 350.1.13.10 ity of [facility] 4.2.7.2.686 [place] [phone] [address] 2021-08-02 2021-08-02 Telephone [facility] 1.2.583.379 [id number] Univers 00:00:00 00:00:00 Vijay HEALTH 350.1.13.10 it y of [facility] 4.2.7.2.686 [place] as TOÑO?BLEA [id number] [address] OFFICE [facility] 2021-07-21 2021-07-21 Outpatient R DARRION WYATT [facility] [id number] Univers 08:00:00 08:52:53 DARRION WYATT [facility] 2021-07-17 2021-07-[address] [facility] [id number] Univers 11:30:00 11:30:00 [facility] 2021-07-17 2021-07-17 [facility] 1.2.840.114 [id number] Univers 00:00:00 00:00:00 Secure Msg Vijay Business e via [place] 350.1.13.10 ity of [place] 4.2.7.2.686 [place] as TOÑO?BLEA [id number] [address] 2021-06-19 2021-06-19 Telephone [facility] 1.2.066.447 [id number] Univers 00:00:00 00:00:00 Vijay HEALTH 350.1.13.10 it y of [place] 4.2.7.2.686 [place] as TOÑO?BLEA [id number] [address] OFFICE [facility] 2021-06-09 2021-06-09 Telephone [facility] 1.2.803.659 [id number] Univers 00:00:00 00:00:00 Re[facility] 350.1.13.10 ity of [place].7.2.[place] [phone] [facility] 059 [facility] 2021-06-06 2021-06-[address] [facility] [id number] Univers 11:15:00 11:15:00 TETO lechuga [facility] 2021-06-06 2021-06-[address] [facility] [id number] Univers 11:15:00 11:15:00 TETO lechuga [facility] 2021-06-02 2021-06-[address] [facility] [id number] Univers 15:45:00 15:45:00 WONDIFUL ity o f [facility] 2021-05-31 2021-05-[address] [facility] [id number] Univers 10:00:00 10:46:31 VIJAY lechuga [facility] 2021-05-31 2021-05-31 Office [facility] 1.2.840.114 [id number] Univers 10:00:00 10:46:31 Visit Vijay HEALTH 350.1.13.10 it y of [place] 4.2.7.2.686 [place] as TOÑO?BLEA [id number] [address] MEDICAL OFFICE [facility] 2021-05-31 2021-05-[address] [facility] [id number] Univers 10:00:00 10:46:31 VIJAY lechuga [facility] 2021-05-31 2021-05-31 Orders Doctor JORDAN 1.2.840.114 [id number] Univers 00:00:00 00:00:00 Only Unassigned, YAZMIN 350.1.13.10 ity of [place] [facility] 4.2.7.2.686 [place] as [id number] [address] 2021-05-26 2021-05-26 Telephone [facility] 1.2.945.365 [id number] Univers 00:00:00 00:00:00 Skylar A HEALTH 350.1.13.10 i ty of [place] 4.2.7.2.686 [place] as TOÑO?BLEA [id number] [address] MEDICAL OFFICE [facility] 2021-05-26 2021-05-26 Patient Prasanna [facility]argas [facility] 1.2.210.560 [id number] Univers 00:00:00 00:00:00 Secure Msg Cam [place] 350.1.13.10 ity of [place] 4.2.7.2.686 [place] [phone] Wa dicaliyah NAL 134 [facility] 2021-05-25 2021-05-25 Telemedici [facility] 1.2.840.114 [id number] Univers 14:00:00 14:30:00 ne Visit Skylar A HEALTH 350.1.13.10 ity of [place] 4.2.7.2.686 [place] as TOÑO?BLEA [phone] [facility] IVÁN[address] 2021-05-25 2021-05-25 Outpatient [facility] [id number] Univers 14:00:00 14:00:00 [facility] 2021-05-25 2021-05-25 Outpatient R [facility] [id number] Univers 14:00:00 14:00:00 [facility] 2021-05-25 2021-05-25 Patient [facility] 1.2.840.114 [id number] Univers 00:00:00 00:00:00 Secure Msg Skylar [facility] 350.1.13.10 ity of [place] 4.2.7.2.686 [place] as TOÑO?BLEA [phone] [address] 2021-05-25 2021-05-25 [facility] 1.2.840.114 [id number] Univers 00:00:00 00:00:00 Secure Msg Skylar [facility] 350.1.13.10 ity of [place] 4.2.7.2.686 [place] as TOÑO?BLEA [phone] [address] 2021-05-24 2021-05-24 Telephone [facility] [id number] Univers 00:00:00 00:00:00 Sendzohra Cuello [place] 350.1.13.10 ity [place].2.[place] [phone] [facility] 059 [facility] 2021-05-24 2021-05-24 Patient Serra, [facility] 1.2.840.114 [id number] Univers 00:00:00 00:00:00 Secure Msg Sendil [facility] [place] 350.1.13.10 [facility] 4.2.[place] [phone] Wa whit TORRES 059 [facility] 2021-05-24 2021-05-24 [facility] 1.2.840.114 [id number] Univers 00:00:00 00:00:00 Secure Msg Wondiful [facility] 350.1.13.10 ity of [place] 4.2.7.2.686 [place] as TOÑO?BLEA [phone] [address] OFFICE [facility] 2021-05-23 2021-05-[address] [facility] [id number] Univers 10:00:00 10:00:00 ity [facility] 2021-05-23 2021-05-[address] [facility] [id number] Univers 10:00:00 10:00:00 ity of [facility] 2021-05-23 2021-05-23 [facility] 1.2.840.114 [id number] Univers 00:00:00 00:00:00 Secure Msg Wondiful [facility] 350.1.13.10 ity of [place] 4.2.7.2.686 [place] as TOÑO?BLEA [phone] [address] OFFICE [facility] 2021-05-16 2021-05-16 [facility] [id number] Univers 09:00:00 09:00:00 TETO ity [facility] 2021-05-12 2021-05-12 Orders Doctor JORDAN 1.2.840.114 [id number] Univers 00:00:00 00:00:00 Only Unassigned, YAZMIN 350.1.13.10 ity of [place] [facility] 4.2.7.2.686 [place] as [phone] [address] 2021-05-10 2021-05-10 Out[facility] [id number] Univers 13:00:00 13:00:00 WONDIFUL ity o f [facility] 2021-05-10 2021-05-[address] [facility] [id number] Univers 13:00:00 13:00:00 WONDIFUL ity o f [facility] 2021-05-09 2021-05-09 Telephone Prasanna Vargas [facility] 1.2.840.114 [id number] Univers 00:00:00 00:00:00 Cam LULU 350.1.13.10 i ty [facility] 4[place] [phone] Wa dicri NAL 134 [facility] 2021-05-09 2021-05-09 [facility] 1.2.840.114 [id number] Univers 00:00:00 00:00:00 Secure Msg Sendil [facility] [place] 350.1.13.10 [facility] 4.2.[place].2.[place] [phone] [place] dicri NAL 9 [facility] 2021-05-08 2021-05-08 [facility] [id number] Univers 16:00:00 16:00:00 JEDAYANA lechuga [facility] [facility] 2021-05-08 2021-05-08 [facility] [id number] Univers 16:00:00 16:00:00 JEDAYANA lechuga [facility] 2021-05-08 2021-05-08 [facility] 1.2.840.114 [id number] Univers 00:00:00 00:00:00 Secure Msg Sendil [facility] [place] 350.1.13.10 ity [facility] [place] [phone] Wa dical NAL 059 [facility] 2021-05-08 2021-05-08 [facility] 1.2.840.114 [id number] Univers 00:00:00 00:00:00 Secure Msg Sendil [facility] [place] 350.1.13.10 ity of [place] 4.2.7.[place] [phone] Wa dical NAL 059 [facility] 2021-05-04 2021-05-04 Patient Serra, [facility] 1.2.840.114 [id number] Univers 00:00:00 00:00:00 Secure Msg Rad Benoit.H. [place] 350.1.13.10 ity of [place] 4.2.7.2.[place] [phone] Wa dical NAL 059 [facility] 2021-05-04 2021-05-04 Patient [facility] 1.2.840.114 [id number] Univers 00:00:00 00:00:00 Secure Msg Reji LAWSON 350.1.13.10 ity of [place] 4.2.7.2.[place] [phone] Wa dicri NAL 9 [facility] 2021-05-03 2021-05-03 Outpatient R [facility] [id number] Univers 11:15:36 23:59:00 REJI maradiagay o f [facility] 2021-05-03 2021-05-03 [facility] 1.2.840.114 [id number] Univers 11:15:36 23:59:00 Encounter Reji LAW[place] 350.1.13.10 ity of [place].2.7.2.[place] [phone] [facility] 846 [facility] 2021-05-03 2021-05-03 Telephone [facility] 1.2.840.114 [id number] Univers 00:00:00 00:00:00 Wondiful A HEALTH 350.1.13.10 ity of [place] 4.2.7.2.686 [place] TOÑO?BLEA [phone] Wa dicaliyah KNEY 044 [facility] 2021-05-02 2021-05-02 Telephone [facility] 1.2.438.033 [id number] Univers 00:00:00 00:00:00 Sendzohra K.[facility]. [place] 350.1.13.10 ity of [place] 4.2.[place].2.[place] [phone] Wa dical NAL 9 [facility] 2021-05-02 2021-05-02 Patient Cristina [facility] 1.2.840.114 [id number] Univers 00:00:00 00:00:00 Secure Msg Wondiful A HEALTH 350.1.13.10 ity of [place] 4.2.7.2.686 [place] TOÑO?BLEA [phone] [address] OFFICE [facility] 2021-05-02 2021-05-02 Telephone Cristina [facility] 1.2.840.114 [id number] Univers 00:00:00 00:00:00 Wondiful A HEALTH 350.1.13.10 ity of [place] 4.2.7.2.686 [place] TOÑO?BLEA [phone] [address] 2021-05-02 2021-05-02 [facility] 1.2.840.114 [id number] Univers 00:00:00 00:00:00 Secure Msg Sendil [facility] [place] 350.1.13.10 ity of [place] 4.[place].2.[place] [phone] [address] 2021-05-02 2021-05-02 Patient Cristina [facility] 1.2.840.114 [id number] Univers 00:00:00 00:00:00 Secure Msg Wondiful A HEALTH 350.1.13.10 ity of [place] 4.2.7.2.686 [place] as TOÑO?BLEA [phone] [address] 2021-04-28 2021-04-28 Patient [facility] 1.2.840.114 [id number] Univers 00:00:00 00:00:00 Secure Msg Wondiful A HEALTH 350.1.13.10 ity of [place] 4.2.7.2.686 [place] TOÑO?BLEA [phone] [address] 2021-04-27 2021-04-27 Emergency X [facility] ERT [id number] Univers 14:24:00 15:49:00 MAGGIE ity of [facility] 2021-04-27 2021-04-27 Emergency Alfonso, [facility] 1.2.840.114 [id number] Univers 14:24:00 15:49:00 Maggie LAW[place] 350.1.13.10 ity of [place] 4.2.7.2.[place] SIMLA [phone] [facility] [address] 2021-04-27 2021-04-27 Laboratory Only, Ang Db Test [facility] 1.2.8 40.114 [id number] Univers 11:15:00 11:30:00 Only Unknown, Attending HEALTH 350.1.13.10 ity of Thony Johnson 4.2.7.2.686 [place] TOÑO?BLEA [phone] [facility] [address] MEDICAL OFFICE BUILDING 2021-04-27 2021-04-[address] [facility] [id number] Univers 11:15:00 11:15:00 [facility] 2021-04-27 2021-04-27 Orders Doctor JORDAN 1.2.840.114 [id number] Univers 00:00:00 00:00:00 Only Unassigned, YAZMIN 350.1.13.10 [facility] 4.2.7.2.686 [place] as [phone] [facility] [address] 2021-04-20 2021-04-[address] [facility] [id number] Univers 15:00:00 15:00:00 EDER ity of [facility] 2021-04-13 2021-04-13 Patient Cristina [facility] 1.2.840.114 [id number] Univers 00:00:00 00:00:00 Secure Msg Wondiful A HEALTH 350.1.13.10 ity of [place] 4.2.7.2.686 [place] TOÑO?BLEA [phone] [facility] [address] MEDICAL OFFICE BUILDING 2021-04-12 2021-04-12 Telephone Cristina [facility] 1.2.840.114 [id number] Univers 00:00:00 00:00:00 Wondiful A HEALTH 350.1.13.10 ity of [place] 4.2.7.2.686 [place] as TOÑO?BLEA [phone] Wa dical KNEY [address] MEDICAL OFFICE BUILDING 2021-03-27 2021-03-27 Telephone Prasanna Vargas [facility] 1.2.840.114 [id number] Univers 00:00:00 00:00:00 [facility] 350.1.13.10 i ty of [place].2.[place] [phone] Wa dical NAL [address] BUILDING 2021-03-24 2021-03-24 Patient Doctor JORDAN 1..840.114 [id number] Univers 00:00:00 00:00:00 Secure Msg Unassigned, YAZMIN 350.1.13.10 it[facility] 4.2.7.2.686 [place] as [phone] [address] 2021-03-23 2021-03-[address] [facility] [id number] Univers 13:30:00 13:30:00 CHILVANA ity o f [facility] 2021-03-23 2021-03-[address] [facility] [id number] Univers 13:30:00 13:30:00 CHILVANA ity o f [facility] 2021-03-22 2021-03-22 Outpatient R ADITYA MEEKS [facility] [id number] Univers 09:20:00 09:20:00 NEHEMIAH MEEKSNJL ity [facility] 2021-03-22 2021-03-22 Outpatient R NEHEMIAH MEEKSNJEz [facility] [id number] Univers 09:20:00 09:20:00 NEHEMIAH MEEKSNJL ity [facility] 2021-03-20 2021-03-[address] [facility] [id number] Univers 00:00:00 00:00:00 WONDIFUL ity o f [facility] 2021-03-18 2021-03-18 [facility] 1.2.840.114 [id number] Univers 00:00:00 00:00:00 Management Wondiful A HEALTH 350.1.13.10 ity of [place] 4.2.7.2.686 [place] TOÑO?BLEA [phone] Wa whit [place] [address] MEDICAL OFFICE [facility] 2021-03-16 2021-03-16 School Plant Consultant Lab, Ang - Db [facility] 1.2.840.1 14 [id number] Univers 11:16:07 11:31:07 Visit Claudette Evans A HEALTH 350.1.13.1 0 ity of [place] 4.2.7.2.686 [place] TOÑO?BLEA [phone] Wa whit [place] 353 [facility] OFFICE [facility] 2021-03-16 2021-03-16 Outpatient R [facility] [id number] Univers 11:30:00 11:30:00 WONDIFUL ity o f [facility] 2021-03-16 2021-03-16 Outpatient R [facility] [id number] Univers 11:00:00 11:14:45 WONDIFUL ity o f [facility] 2021-03-16 2021-03-16 Office [facility] 1.2.840.114 [id number] Univers 10:00:58 11:14:45 Visit Wonkacey A HEALTH 350.1.13.10 ity of [place] 4.2.7.2.686 [place] TOÑO?BLEA [phone] [address] OFFICE [facility] 2021-03-16 2021-03-16 Patient [facility] 1.2.840.114 [id number] Univers 00:00:00 00:00:00 Secure Msg Wondiful A HEALTH 350.1.13.10 ity of [place] 4.2.7.2.686 [place] TOÑO?BLEA [phone] [facility] MEDICAL OFFICE [facility] 2021-03-02 2021-03-[address] [facility] [id number] Univers 16:15:00 16:15:00 WONDIFUL ity o f [facility] 2021-02-28 2021-02-[address] [facility] [id number] Univers 18:30:00 18:30:00 ILEANA lechuga [facility] 2021-02-28 2021-02-28 Telephone [facility] 1.2.840.114 [id number] Univers 00:00:00 00:00:00 Wondiful A Health 350.1.13.10 ity of [place] 4.2.7.2.686 [place] Toño?Blea [id number] [address] 2021-02-27 2021-02-[address] [facility] [id number] Univers 09:00:00 09:00:00 AMELIA lechuga [facility] 2021-02-23 2021-02-23 Telephone [facility] 1.2.840.114 [id number] Univers 00:00:00 00:00:00 Wondiful A Health 350.1.13.10 ity of [place] 4.2.7.2.686 [place] as Toño?Blea [phone] [address] 2021-02-10 2021-02-10 Emergency Dev, Kaycee [facility] 1.2.840.114 [id number] Univers 18:12:00 23:39:00 Sharlene [place] 350.1.13.10 i ty of [place] 4.2.7.2.[place] [phone] [facility] [address] 2021-02-10 2021-02-10 Patient [facility] 1.2.840.114 [id number] Univers 00:00:00 00:00:00 Secure Msg Wondiful A HE[facility] 350.1.13.10 [facility] 4.2.7.2.686 [place] TOÑO?BLEA [phone] [address] 2021-02-10 2021-02-10 Patient [facility] 1.2.840.114 [id number] Univers 00:00:00 00:00:00 Secure Msg Wondiful A HEALTH 350.1.13.10 ity of [place] 4.2.7.2.686 [place] as TOÑO?BLEA [phone] [address] MEDICAL OFFICE BUILDING 2021-02-10 2021-02-10 Patient [facility] 1.2.840.114 [id number] Univers 00:00:00 00:00:00 Secure Msg Wondiful A HEALTH 350.1.13.10 ity of [place] 4.2.7.2.686 [place] TOÑO?BLEA [phone] Wa whit [place] [address] MEDICAL OFFICE [facility] 2021-02-10 2021-02-10 Patient [facility] 1.2.840.114 [id number] Univers 00:00:00 00:00:00 Secure Msg Wondiful A HEALTH 350.1.13.10 ity of [place] 4.2.7.2.686 [place] as TOÑO?BLEA [phone] Wa whit [place] [address] MEDICAL OFFICE [facility] 2021-02-09 2021-02-09 Hospital [facility] 1.2.322.943 [id number] Univers 13:40:00 23:59:00 Encounter Wondiful A Health 350.1.13.10 ity of [place] 4.2.7.2.686 [place] Toño?Blea [phone] Wa whit [place] 809 [facility] Office [facility] 2021-02-09 2021-02-09 School Plant Consultant Lab, Ang - [facility] 1.2.840.1 14 [id number] Univers 13:49:05 14:04:05 Visit Claudette [facility] 350.1.13.1 0 ity of [place] 4.2.7.2.686 [place] Toño?Blea [phone] Wa whit [place] [address] Medical Office Building 2021-02-09 2021-02-09 Office [facility] 1.2.840.114 [id number] Univers 12:23:13 13:47:12 Visit Wonlgful A Health 350.1.13.10 ity of [place] 4.2.7.2.686 [place] as Toño?Blea [phone] Wa whit [place] 044 [facility] Office [facility] 2021-02-09 2021-02-[address] [facility] [id number] Univers 13:00:00 13:00:00 WONDIFUL ity o f [facility] 2021-02-09 2021-02-09 Patient Doctor ORTEGA 1.2.840.114 [id number] Univers 00:00:00 00:00:00 Secure Msg Unassigned, YAZMIN 350.1.13.10 it[facility] 4.2.7.2.686 [place] as [phone] [address] 2021-02-08 2021-02-08 Outpatient R ADITYA MEEKS [facility] [id number] Univers 10:20:00 10:20:00 [facility] itchino [facility] 2021-02-07 2021-02-07 Patient [facility] 1.2.840.114 [id number] Univers 00:00:00 00:00:00 Secure Msg Wondiful A HEALTH 350.1.13.10 ity of [place] 4.2.7.2.686 [place] as TOÑO?BLEA [phone] [address] MEDICAL OFFICE [facility] 2021-02-02 2021-02-02 Outpatient [facility] [id number] Univers 10:30:00 10:30:00 SKYLAR lechuga [facility] 2021-02-02 2021-02-02 Telephone [facility] 1.2.840.114 [id number] Univers 00:00:00 00:00:00 Wondiful A Health 350.1.13.10 ity of [place] 4.2.7.2.686 [place] Toño?Blea [phone] [address] Medical Office [facility] 2021-02-01 2021-02-01 Outpatient R [facility] [id number] Univers 08:30:00 08:30:00 SKYLARLEE lechuga [facility] 2021-01-31 2021-01-31 Urgent [facility] 1.2.840.114 [id number] Univers 18:44:04 19:41:26 Care [facility] 350.1.13.10 i ty of [place] 4.2.7.2.686 [place] as Tooñ?Blea [phone] [place] whit [place] [address] Medical Office [facility] 2021-01-31 2021-01-[address] [facility] [id number] Univers 19:00:00 19:00:00 FLACO lechuga o f [facility] 2021-01-31 2021-01-31 Telephone Cristina [facility] 1.2.840.114 [id number] Univers 00:00:00 00:00:00 Wondiful A Health 350.1.13.10 ity of [place] 4.2.7.2.686 [place] Toño?Blea [phone] Wa dicaliyah [place] 044 [facility] Office [facility] 2021-01-31 2021-01-31 Patient Cristina [facility] 1.2.840.114 [id number] Univers 00:00:00 00:00:00 Secure Msg Wondiful A HEALTH 350.1.13.10 ity of [place] 4.2.7.2.686 [place] TOÑO?BLEA [phone] [facility] [place] 044 [facility] OFFICE [facility] 2021-01-30 2021-01-30 Telephone [facility] 1.2.191.554 [id number] Univers 00:00:00 00:00:00 Sendil Cuate [place] 350.1.13.10 ity of [place] [phone] Wa whit [place] 059 [facility] 2021-01-30 2021-01-30 Patient Cristina [facility] 1.2.840.114 [id number] Univers 00:00:00 00:00:00 Secure Msg Wondiful A HEALTH 350.1.13.10 ity of [place] 4.2.7.2.686 [place] as PROFESSIO [phone] [address] OFFICE [facility] ONE 2021-01-26 2021-01-[address] [facility] [id number] Univers 14:00:00 14:00:00 SENDIL itchino of [facility] 2021-01-26 2021-01-26 Patient Yaneli [facility] 1.2.840.114 [id number] Univers 00:00:00 00:00:00 Secure Msg Skylar A HEALTH 350.1.13.10 ity of [place] 4.2.7.2.686 [place] as TOÑO?BLEA [phone] [address] OFFICE [facility] 2021-01-25 2021-01-[address] [facility] [id number] Univers 15:00:00 15:00:00 ity of [facility] 2021-01-21 2021-01-21 Patient [facility] 1.2.840.114 [id number] Univers 00:00:00 00:00:00 Secure Msg Skylar A HEALTH 350.1.13.10 ity of [place] 4.2.7.2.686 [place] TOÑO?BLEA [phone] [address] 2021-01-20 2021-01-20 [facility] 1.2.840.114 [id number] Univers 16:51:22 17:12:41 ne Visit Skylar [facility] 350.1.13.10 ity of [place] 4.2.7.2.686 [place] Toño?Blea [id number] [address] 2021-01-20 2021-01-20 Outpatient R [facility] [id number] Univers 16:30:00 16:30:00 SKYLAR [facility] 2021-01-19 2021-01-19 Outpatient R [facility] [id number] Univers 10:15:00 10:15:00 KAYLEY ity [facility] 2021-01-14 2021-01-14 JORDAN Guzman 1.2.840.114 [id number] Univers 00:00:00 00:00:00 Management Kassandra ARCE 350.1.13.[address] [facility] 4.2.7.2.686 [place] as [phone] [address] 2021-01-14 2021-01-14 Patient Doctor JORDAN 1.2.840.114 [id number] Univers 00:00:00 00:00:00 Secure Msg Unassigned, YAZMIN 350.1.13.10 [facility] 4.2.7.2.686 [place] as [phone] [facility] [address] 2021-01-12 2021-01-12 Emergency [facility] 1.2.545.259 [id number] Univers 16:10:00 19:45:00 Karin Yanes L[place] 350.1.13.10 i ty of [place] 4.2.7.2.[place] [phone] [facility] [address] 2021-01-12 2021-01-12 Outpatient [facility] [id number] Univers 15:20:00 15:20:00 [facility] 2021-01-12 2021-01-12 Urgent Thony Johnson [facility] 1.2.840.114 [id number] Univers 14:46:57 15:06:57 [facility] 350.1.13.10 ity of [place] 4.2.7.2.686 [place] as Toño?Blea [phone] [address] Medical Office Building 2020-12-26 2020-12-26 Outpatient R [facility] [id number] Univers 15:30:00 16:13:32 SENDIL ity of [facility] 2020-12-26 2020-12-26 Office [facility] 1.2.840.114 [id number] Univers 15:30:00 16:13:32 Visit Rad LAWSON 350.1.13.10 ity of [place].2.[place] [phone] Wa dicri NAL [address] [facility] 2020-12-26 2020-12-26 Office [facility] 1.2.840.114 [id number] Univers 15:00:32 16:13:32 Visit Rad Lawson 350.1.13.10 ity of [place] 4.2.7.2.[place] [phone] Wa dicri nal [address] [facility] 2020-12-26 2020-12-26 Outpatient R [facility] [id number] Univers 15:30:00 15:30:00 SENDIL itchino [facility] 2020-11-29 2020-11-29 Patient Ponce [facility] 1.2.840.114 [id number] Univers 00:00:00 00:00:00 Secure Msg Sendil Cuate LUL[place] 350.1.13.10 [facility] 4.2.7.2.686 [facility] [phone] Wa dical NAL [address] BUILDING 2020-11-22 2020-11-22 Outpatient R [facility] [id number] Univers 11:00:00 11:00:00 CELINA ankush [facility] 2020-11-10 2020-11-10 Urgent Alissa Collins [facility] 1.2.840.114 [id number] 18:42:46 19:53:43 Formerly [facility] 350.1.13.10 [place] 4.2.7.2.686 Professio [phone] nal 0[address] Office Building One 2020-11-10 2020-11-[address] [facility] [id number] Univers 19:00:00 19:00:00 ity [facility] 2020-10-31 2020-10-31 Emergency Kaycee Méndez [facility] 1.2.840.114 [id number] 18:52:00 22:15:00 Sharlene Lawson 350.1.13.10 [place] 4.2.7.2.686 [place] [phone] 084 2020-10-31 2020-10-31 Outpatient R [facility] [id number] Univers 19:00:00 19:00:00 CARI lechuga o f [facility] 2020-10-31 2020-10-31 Orders Doctor ORTEGA 1.2.840.114 [id number] 00:00:00 00:00:00 Only Unassigned, YAZMIN 350.1.13.10 [facility] 4.2.7.2.686 [id number] 009 2020-10-20 2020-10-20 Emergency Kaycee Méndez [facility] 1.2.840.114 [id number] 14:02:00 17:13:00 Sharlene [place] 350.1.13.10 [place] 4.2.7.2.686 Rossiter [id number] 084 2020-10-18 2020-10-18 Patient Prasanna Vargas [facility] 1.2.169.451 [id number] Univers 00:00:00 00:00:00 Secure Msg Cam [place] 350.1.13.10 ity [facility] 4.2.7.2.[place] [phone] [address] 2020-10-14 2020-10-14 Hospital Prasanna Vargas [facility] 1.2.840.114 [id number] 10:00:00 23:59:00 Encounter Cam [place] 350.1.13.10 [place] 4.2.7.2.686 Rossiter [id number] 806 2020-10-14 2020-10-[address] [facility] [id number] Univers 13:30:00 13:30:00 CELINA lechuga [facility] 2020-10-11 2020-10-11 Patient Prasanna Vargas [facility] 1.2.394.639 [id number] Univers 00:00:00 00:00:00 Secure Msg Cam [place] 350.1.13.10 ity of [place].2.686 [place] [id number] [address] 2020-10-11 2020-10-11 Patient Prasanna Vargas [facility] 1.2.808.962 [id number] Univers 00:00:00 00:00:00 Secure Msg Cam [place] 350.1.13.10 ity of [facility] 4.2.7.2.[place] [phone] [address] 2020-10-09 2020-10-09 Emergency [facility] 1.2.612.609 [id number] 12:00:00 15:57:00 Anna Ricketts [place] 350.1.13.10 [place] 4.2.7.2.686 Rossiter [phone] 084 2020-10-07 2020-10-07 Patient Prasanna Vargas [facility] 1.2.950.407 [id number] Univers 00:00:00 00:00:00 Secure Msg Cam [place] 350.1.13.10 ity of [place] 4.2.7.2.[place] [phone] Wa dical NAL [address] [place] [address] 2020-10-07 2020-10-07 Patient Prasanna Vargas [facility] 1.2.727.141 [id number] Univers 00:00:00 00:00:00 Secure Msg Cam [place] 350.1.13.10 ity of [place] 4.2.7.2.686 [place] [phone] Wa dical NAL [address] [place] [address] 2020-10-07 2020-10-07 Patient Prasanna Vargas [facility] 1.2.878.054 [id number] Univers 00:00:00 00:00:00 Secure Msg Cam [place] 350.1.13.10 ity of [place] 4.2.7.2.686 [place] [phone] Wa dical NAL [address] [place] [address] 2020-10-07 2020-10-07 Patient Prasanna VargasMB 1.2.368.615 [id number] Univers 00:00:00 00:00:00 Secure Msg Cam [place] 350.1.13.10 ity of [place] 4.2.7.2.686 [place] [phone] Wa dical NAL [address] [place] [address] 2020-10-07 2020-10-07 Patient Prasanna VargasMB 1.2.444.369 [id number] Univers 00:00:00 00:00:00 Secure Msg Cam [place] 350.1.13.10 ity of [place] [id number] [phone] [place] N[place] [address] [place] [address] 2020-10-07 2020-10-07 Patient Prasanna Vargas [facility] [id number] Univers 00:00:00 00:00:00 Secure Msg [place] [id number] [place] [phone] [place]ical NAL [address] [place] [address] 2020-10-07 2020-10-07 [facility] [id number] Univers 00:00:00 00:00:00 Secure Msg [place] [id number] [id number] [phone] [place] dic[address] 2020-10-06 2020-10-06 Office Prasanna Varg[facility] 1.2.002.210 [id number] 08:53:00 09:46:44 Visit Cam [place] [id number] [place] [id number] Professio [phone] [address] 2020-10-06 2020-10-06 Outpatient R ALICIA [facility] [id number] Univers 09:30[facility]00 [facility] 2020-[facility]-[address] [facility] [id number] Univers 14:00:00 14:00:00 CELINA [facility] 2020-09-30 2020-09-[address] [facility] [id number] Univers 10:30:00 10:30:00 CELINA [facility] 2020-09-29 2020-09-29 [facility] [id number] Univers 13:45:00 13:45:00 PREET chino [facility] 2020-09-06 2020-09-06 Outpatient R ALICIA [facility] [id number] Univers 15:30:00 15:30:00 [facility] 2020-09-05 2020-09-05 Patient [facility] [id number] Univers 00:00:00 00:00:00 Secure Msg [place] 350.1.13.10 ity [facility] [id number] [phone] [place] dical [address] 2020-09-02 2020-09-[address] [facility] [id number] Univers 15:40:00 15:40:00 DARRION WYATT [facility] 2020-08-31 2020-08-[address] [facility] [id number] Univers 10:30:00 10:30:00 [facility] 2020-08-31 2020-08-31 Patient [facility] [id number] [id number] Univers 00:00:00 00:00:00 Secure Msg [facility] 4[facility]2.7[facility]2.686 Terrie dailey PROFESSIO [phone] [place] dical [address] 2020-08-18 2020-08-18 Outpatient R PRASANNA VARGAS [facility] [id number] Univers 09:30:00 09:30:00 [facility] 2020-08-11 2020-08-11 Outpatient R PRASANNA VARGAS [facility] [id number] Univers 13:30:00 13:30:00 [facility] 2020-08-04 2020-08-[address] [facility] [id number] Univers 14:00:00 14:00:00 EDER [facility] 2020-07-28 2020-07-[address] [facility] [id number] Univers 10:30:00 10:30:00 SENDIL [facility] 2020-06-30 2020-06-[address] [facility] [id number] Univers 16:15:00 16:15:00 WONDIFUL ity o f [facility] 2020-06-17 2020-06-[address] [facility] [id number] Univers 15:00:00 15:00:00 DARRION WYATT [facility] 2020-06-16 2020-06-[address] [facility] [id number] Univers 15:30:00 15:30:00 SENDIL [facility] 2020-06-09 2020-06-[address] [facility] [id number] Univers 12:30:00 12:30:00 ity [facility] 2020-06-08 2020-06-[address] [facility] [id number] Univers 08:00:00 08:00:00 ity [facility] 2020-06-02 2020-06-[address] [facility] [id number] Univers 09:00:00 09:00:00 SENDIL ity [facility] 2020-05-28 2020-05-[address] [facility] [id number] Univers 10:00:00 10:00:00 CARI lechuga o f [facility] 2020-05-26 2020-05-26 Patient Cristina [facility] [id number] Univers 00:00:00 00:00:00 Secure M[facility] [id number] ity [facility] [id number] [place] as PROFESSIO [phone] Wa dical NAL [address] OFFICE BUILDING ONE 2020-05-24 2020-05-[address] [facility] [id number] Univers 10:00:00 [facility]:00[facility] 2020-05-24 Patient Doctor [facility] [id number] Univers 00:00:00 00:00:00 Secure Msg [facility] [place] 350.1.13.10 [id number] [phone] [place] dical NAL [address] BU[address]ING 2020-05-19 2020-05-19 Outpatient R OSITO [facility]ITCHC[facility] [id number] Univers 16:30:00 16:30:00 ity [facility] 2020-05-17 2020-05-17 Outpatient R D[address]ION WYATT [facility] [id number] Univers 13:00:00 13:00:00 [facility]ARRION W[facility]ATT [facility] 2020-05-16 2020-05-16 Outpatient R CRISTINA, [facility] [id number] Univers 16:00:00 16:00:00 WONDIFUL ity o f [facility] 2020-05-09 2020-05-09 Patient Cristina [facility] 1.2.840.114 [id number] Univers 00:00:00 00:00:00 Secure Msg Wondiful A [facility]ALTH 350.1.13.10 ity of [place] [id number] [place] as PROFESSIO [phone] Wa dical [address] OFFICE BUILDING ONE 2020-05-08 2020-05-08 Emergency X VIRGIE [facility] ERT [id number] Univers 10:24:00 13:03:00 OLAMIDE chino [facility] 2020-05-03 2020-05-03 [facility] [id number] Univers 15:00:00 15:00:00 WONDIFUL ity o f [facility] 2020-04-30 2020-05-01 Outpatient X HOFF, [facility] [place] [id number] Univers 11:14:00 15:50:00 RODRIGUEZ [facility] 2020-04-30 2020-04-30 [facility] [id number] Univers 10:20:00 10:20:00 ROSALES [facility] 2020-04-30 2020-04-30 [facility] [id number] Univers 10:15:00 10:15:00 ROSALES [facility] 2020-04-29 2020-04-29 Patient Heaven Hitchcocksir [facility] 1.2.840.114 [id number] Univers 00:00:00 00:00:00 Secure Msg Y HEALTH 350.1.13.10 ity of [facility] [place]2.[place] [phone] [address] 2020-04-28 2020-04-28 Outpatient R OSITO [facility] [facility] [id number] Univers 14:00:00 14:00:00 ity [facility] 2020-04-25 2020-04-25 Outpatient [facility] [id number] Univers 16:15:00 16:15:00 WONDIFUL ity o f [facility] 2020-04-22 2020-04-22 Patient Justine [facility] 1.2.840.114 [id number] Univers 00:00:00 00:00:00 Secure Msg Eder [facility].10 [facility] 4.2.7.2.686 Terrie ESCUDEROIO [phone] [address] 2020-04-18 2020-04-18 Outpatient R OSITO [facility] [facility] [id number] Univers 10:00:00 10:00:00 ity [facility] 2020-04-15 2020-04-[address] [facility] [id number] Univers 10:30:00 10:30:00 [facility] 2020-04-12 2020-04-13 Outpatient X MARICRUZ DELUNA [facility] [id number] Univers 13:38:00 16:25:00 [facility] 2020-03-17 2020-03-[address] [facility] [id number] Univers 16:15:00 16:15:00 [facility] 2020-03-04 2020-03-04 Refill Coretta [facility] 1.2.840.114 [id number] 00:00:00 00:00:00 MULTISPEC 350.1.13.10 IALTY 4.2.7.2.686 CENTER [id number] [facility] 2020-02-25 2020-02-25 Outpatient R OSITO [facility] [facility] [id number] Univers 16:00:00 16:00:00 [facility] [address] [facility] [id number] Univers 14:00:00 14:00:00 TETO [facility] 2020-02-08 2020-02-08 Outpatient R PRASANNA VARGAS [facility] [id number] Univers 10:30:00 10:30:00 [facility] 2020-02-05 2020-02-05 Patient Prasanna Vargas [facility] [id number] Univers 00:00:00 00:00:00 Secure Msg Cam [place] 350.1.13.10 [place] [phone] Wa dical [address] 2020-02-04 2020-02-04 Outpatient R HEAVEN [facility]ITCHCOCK[facility] [id number] Univers 13:30:00 13:30:00 ity [facility] 2020-01-23 2020-01-[address] [facility] [id number] Univers 10:15:00 10:15:00 ity [facility] 2020-01-21 2020-01-21 Outpatient R CORETTA OSITO [facility] [id number] Univers 13:00:00 13:00:00 ity of [facility] 2020-01-14 2020-01-14 Outpatient R CORETTA OSITO [facility] [id number] Univers 16:00:00 16:00:00 ity [facility] 2020-01-05 2020-01-05 Outpatient R PRASANNA VARGAS [facility] [id number] Univers 13:45:00 13:45:00 ity of [facility] 2020-01-05 2020-01-05 Patient VargasPrasanna [facility] [id number] Univers 00:00:00 00:00:00 Secure Msg Cam [place] 350.1.13.10 [place] [phone] [address] 2019-12-03 2019-12-03 Outpatient R AKINLYNSEY, [facility] [id number] Univers 10:30:00 10:30:00 CRICKET ity o f [facility] 2019-11-27 2019-11-[address] [facility] [id number] Univers 11:00:00 11:00:00 TETO ity [facility] 2019-11-26 2019-11-26 Patient Doctor ORTEGA 1.2.840.114 [id number] Univers 00:00:00 00:00:00 Secure Msg Unassigned, [place] 350.1.13.[address] [facility] 4.2.7.2.686 [place] as [phone] [address] 2019-11-25 2019-11-25 Outpatient R DEYVI, [facility] [id number] Univers 08:00:00 08:00:00 TETO [facility] 2019-11-23 2019-11-23 Patient Doctor [facility] 1.2.840.114 [id number] Univers 00:00:00 00:00:00 Secure Msg Unassigned, [place] 350.1.13.10 ity [place] [facility] [place] [phone] Wa dical [address] 2019-11-18 2019-11-18 Outpatient R DEYVI, [facility] [id number] Univers 10:00:00 10:00:00 TETO ankush [facility] 2019-11-17 2019-11-17 Patient Doctor [facility] 1.2.840.114 [id number] Univers 00:00:00 00:00:00 Secure Msg Unassigned, [place] 350.1.13.10 [place] [phone] Wa dic[address] 2019-11-13 2019-11-13 Patient Prasanna Vargas [facility] [id number] Univers 00:00:00 00:00:00 Secure Msg Cam [place] 350.1.13.10 ity [facility] 4[place] [phone] Wa dical [address] 2019-09-02 2019-09-02 Outpatient R BRANDON, [facility] [id number] Univers 11:00:00 11:00:00 CRICKET lechuga o f [facility] 2019-08-14 2019-08-[address] [facility] [id number] Univers 10:15:00 10:15:00 TETO lechuga [facility] 2019-08-13 2019-08-13 Outpatient R BRANDON, [facility] [id number] Univers 11:00:00 11:00:00 CRICKET ity o f [facility] 2019-08-12 2019-08-[address] [facility] [id number] Univers 09:00:00 09:00:[facility] 2019-07-20 2019-07-20 Outpatient P PRASANNA VARGAS [facility] CHRIS [id number] Univers 16:06:00 16:06:00 ity of [facility] 2019-07-20 2019-07-20 Outpatient R AKINSIPE, [facility] [id number] Univers 08:15:00 08:15:00 CRICKET ity o f [facility] 2019-07-13 2019-07-13 Outpatient R AKINSIPE, [facility] [id number] Univers 08:00:00 08:00:00 CRICKET ity o f [facility] 2019-07-12 2019-07-12 Outpatient P PRASANNA VARGAS [facility] [id number] Univers 13:39:00 13:39:00 [facility] 2019-07-06 2019-07-06 Outpatient R AKINSIPE, [facility] [id number] Univers 13:00:00 13:00:00 CRICKET ity o f [facility] 2019-06-13 2019-06-13 Emergency X YARIMA, [facility] ERT [id number] Univers 10:40:46 12:35:00 WAKILI [facility] 2019-05-13 2019-05-14 Outpatient P PRASANNA VARGAS [facility] CHRIS [id number] Univers 23:07:00 09:15:00 [facility] Results Test Description Test Time Test Comments Results Result Comments Source CBC WITH DIFF 2023-01-12 04:28:47 Test Item Value Reference Range Interpretation Comme nts WBC (test code = 6690-2) 5.45 See_Comment [A utomated message] The system which ge nerated this result transmit renata reference range: 4.30 - 1 1.10 10*3/?L. The reference r david was not used to interpr et this result as normal/abnor mal. RBC (test code = 789-8) 4.59 See_Comment [Au tomated message] The system which ge nerated this result transmit renata reference range: 3.93 - 5 .25 10*6/?L. The reference r david was not used to interpr et this result as normal/abnor mal. HGB (test code = 718-7) 13.1 g/dL 11.6-15.0 HCT (test code = 4544-3) 38.5 % 35.7-45.2 MCV (test code = 787-2) 83.9 fL 80.6-95.5 MCH (test code = 785-6) 28.5 pg 25.9-32.8 MCHC (test code = 786-4) 34.0 g/dL 31.6-35.1 RDW-SD (test code = 26205-2) 40.3 fL 39.0-49.9 RDW-CV (test code = 788-0) 13.1 % 12.0-15.5 PLT (test code = 777-3) 307 See_Comment [Au tomated message] The system which [employer] nerated this result transmit renata reference range: 166 - 35 8 10*3/?L. The reference range was not used to interpret th is result as normal/abnormal . MPV (test code = 44352-1) 11.0 fL 9.5-12.9 NRBC/100 WBC (test code = 0.0 See_Comment [ Automated message] The [id number]) system which [employer] nerated this result transmit renata reference range: 0.0 - 10 .0 /100 WBCs. The reference r david was not used to interpr et this result as normal/abnor mal. NRBC x10^3 (test code = See_Comment [Au tomated message] The 0065081831) system which [employer] nerated this result transmit renata reference range: 10*3/?L. The reference range was not u sed to interpret this result as normal/abnormal . GRAN MAT (NEUT) % (test code 52.0 % = 770-8) IMM GRAN % (test code = 0.20 % 7571306557) LYMPH % (test code = 736-9) 38.0 % MONO % (test code = 5905-5) 4.6 % EOS % (test code = 713-8) 4.6 % BASO % (test code = 706-2) 0.6 % GRAN MAT x10^3(ANC) (test 2.84 10*3/uL 1.88-7.09 code = 3498966494) IMM GRAN x10^3 (test code = 0.00-0.06 8987510589) LYMPH x10^3 (test code = 2.07 10*3/uL 1.32-3.29 731-0) MONO x10^3 (test code = 0.25 10*3/uL 0.33-0.92 L 742-7) EOS x10^3 (test code = 0.25 10*3/uL 0.03-0.39 711-2) BASO x10^3 (test code = 0.03 10*3/uL 0.01-0.07 704-7) Lab Interpretation (test Abnormal code = 12254-2) [facility]. METABOLIC PANEL ([id number])2023-01-12 04:12:43 Test Item Value Reference Range Interpretation Comments NA (test code = 137 mmol/L 135-145 5687796427) K (test code = 3.4 mmol/L 3.5-5.0 L 6838498376) CL (test code = 104 mmol/L 98-108 4887478484) CO2 TOTAL (test code = 24 mmol/L 23-31 2948752762) AGAP (test code = 9 2-16 4313457365) BUN (test code = 2 mg/dL 7-23 L 4521945257) GLUCOSE (test code = 92 mg/dL 70-110 6463563464) CREATININE (test code = 0.80 mg/dL 0.50-1.04 2254843487) TOTAL BILI (test code = 0.4 mg/dL 0.1-1.6 6054708324) CALCIUM (test code = 8.4 mg/dL 8.6-10.6 L 5276984013) T PROTEIN (test code = 6.3 g/dL 6.3-8.2 9573446316) ALBUMIN (test code = 3.7 g/dL 3.5-5.0 3869267942) ALK PHOS (test code = 87 U/L 34-122 1438826152) ALTv (test code = 27 U/L 5-35 1742-6) AST(SGOT) (test code = 33 U/L 13-40 0488940460) eGFR (test code = 86.0 mL/min/1.73m2 6245560010) WESLEY (test code = WESLEY) Association of [...] tests). Lab Interpretation Abnormal (test code = 46621-0) [facility]. METABOLIC PANEL ([id number])2023-01-12 04:12:43 Test Item Value Reference Range Interpretation Comments NA (test code = 137 mmol/L 135-145 0940182450) K (test code = 3.4 mmol/L 3.5-5.0 L 2093645844) CL (test code = 104 mmol/L 98-108 6153696998) CO2 TOTAL (test code = 24 mmol/L 23-31 0069223894) AGAP (test code = 9 2-16 1524431272) BUN (test code = 2 mg/dL 7-23 L 7217120803) GLUCOSE (test code = 92 mg/dL 70-110 1244610189) CREATININE (test code = 0.80 mg/dL 0.50-1.04 7415634970) TOTAL BILI (test code = 0.4 mg/dL 0.1-1.2 2506145083) CALCIUM (test code = 8.4 mg/dL 8.6-10.6 L 4821557007) T PROTEIN (test code = 6.3 g/dL 6.3-8.2 0429762372) ALBUMIN (test code = 3.7 g/dL 3.5-5.0 3662509093) ALK PHOS (test code = 87 U/L 34-122 0590842056) ALTv (test code = 27 U/L 5-35 1742-6) AST(SGOT) (test code = 33 U/L 13-40 6861421591) eGFR (test code = 86.0 mL/min/1.73m2 9441809202) WESLEY (test code = WESLEY) Association of [...] tests). Lab Interpretation Abnormal (test code = 01270-9) [facility] (QUANTITATIVE)2023-01-12 04:07:04 BETA HCG<2.39Non- female and male patients: <5 mIU/mL01/11/2023 11:07 PM [facility] Gestational Age ?Range (mIU/mL) 1-10 ?Weeks ?65-00150802-29 Weeks ?47063-01050637-28 Weeks ?3632-30259642-95 Weeks ?1531-459354 Biotin has been reported to cause a negative bias, interpret results relative to patient's use of biotin. Gestational Age ?Range (mIU/mL) 1-10 ?Weeks ?82-58127196-83 Weeks ?45705-52593223-69 Weeks ?3108-96472664-94 Weeks ?1531-824143 Biotin has been reported to cause a negative bias, interpret results relativeto patient's use of biotin. Gestational Age ?Range (mIU/mL) 1-10 ?Weeks ?62-23833727-96 Weeks ?14728-90008000-82 Weeks ?2030-38385782-70 Weeks ?1531-919422 Biotin has been reported to cause a negative bias, interpret results relative to patient's use of biotin.[facility] (QUANTITATIVE)2023-01-12 04:07:04BETA HCG<2.39Non- female and male patients: <5 mIU/mL01/11/2023 11:07 PM [facility] Gestational Age ?Range (mIU/mL) 1-10 ?Weeks ?89-60546970-58 Weeks ?83302-94953987-63 Weeks ?9869-28779719-20 Weeks ?1531-801587 Biotin has been reported to cause a negative bias, interpret results relative to patient's use of biotin. Gestational Age ?Range (mIU/mL) 1-10 ?Weeks ?44-2567 4011-15 Weeks ?06987-05792691-64 Weeks ?9506-21337678-25 Weeks ?1531-840330 Biotin has been reported to cause a negative bias, interpret results relativeto patient's use of biotin. Gestational Age ?Range (mIU/mL) 1-10 ?Weeks ? 76-32646556-91 Weeks ?52282-54227003-52 Weeks ?2781-96957382-32 Weeks ?1531-837956 Biotin has been reported to cause a negative bias, interpret results relative to patient's use of biotin. [facility]58 Test Item Value Reference Range Interpretation Comments LIPASE (test code = 0834222617) 41 U/L 0-220 Lab Interpretation (test code = Normal 91861-1) [facility] 03:22:58 Test Item Value Reference Range Interpretation Comments LIPASE (test code = 5493105587) 41 U/L 0-220 Lab Interpretation (test code = Normal 21456-6) [facility] [id number] 03:02:00 Test Item Value Reference Range Interpretation Comments POCT PREG (test code = 1605) Negative On board controls acceptable with Yes C Line (test code = 3574) POCT PREG LOT # (test code =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
[2023-03-02 10:26] LABS: Specific Gravity 1.005 (1.005-1.030)
[2023-03-02 10:28] LABS: Absolute Lymphocytes (CBC) 1.7 K/uL (0.7-4.9); MCV 85.7 fL (80-100); MPV 7.6 fL (7.6-11.3); Platelets 349 thou/uL (152-406); RBC Red Blood Cell Count 4.66 M/uL (3.86-4.86)
[2023-03-02] MEDS ORDERED: FENTANYL CITR 100 MCG/2 ML ONE (10:31)
[2023-03-02] MEDS ORDERED: ONDANSETRON 4 MG/2 ML VIAL ONE (10:31)
[2023-03-02] MEDS ORDERED: NA CHLORIDE 0.9% 1,000 ML ONE (10:31)
[2023-03-02 10:47] LABS: Albumin 3.9 g/dL (3.4-5.0); Bilirubin Total 0.2 mg/dL (0.2-1.0); Potassium 3.5 mEq/L (3.5-5.1)
[2023-03-02 10:51] LABS: Specific Gravity 1.005 (1.005-1.030); Urine Bacteria 20-50 /HPF (<20); Urine Bilirubin NEGATIVE (Negative); Urine Blood 3+ (OVER) (Negative); Urine Clarity Extremely Turbid (Clear); Urine Color Colorless (Yellow); Urine Glucose NEGATIVE (Negative); Urine Mucus Slight /HPF (None Seen); Urine Protein TRACE (Negative); Urine Urobilinogen Normal (Normal); Urine pH 6.5 (5.0-7.0)
--- NOTE | 2023-03-02 11:58 | RAD REPORT ---
EXAM DESCRIPTION: CT - Stone Protocol - 03/02/2023 10:30 am CLINICAL HISTORY: FLANK PAIN COMPARISON: Abdomen Pelvis Wo Contrast dated 12/19/2022; Abdomen Pelvis W Contrast dated 12/05/2022 ; Abdomen Pelvis W Contrast dated 12/01/2022; Abdomen Pelvis W Contrast dated 11/17/2022 TECHNIQUE: Thin cut axial CT imaging of the abdomen and pelvis was performed without IV contrast. Mu ltiplanar reformats were generated and reviewed. All CT scans are performed using dose optimization technique as appropriate and may include automated exposure control or mA/KV adjustment according to patient size. FINDINGS: No suspicious findings in the lung bases. The liver, spleen, and pancreas show no suspicious findings. Gallbladder was surgically removed. Symmetric renal contour, without suspicious parenchymal findings within limits of noncontrast techniq ue. No hydroureteronephrosis. 3 millimeter nonobstructing right superior pole calculus. No dilated bowel loops or bowel wall thickening. No free air, free fluid or inflammatory stranding. N o hernia, mass or bulky lymphadenopathy. Right adnexal dominant cyst or follicle, measuring 1.9 cm. T he urinary bladder is without significant finding. No suspicious bony findings. IMPRESSION: Right superior pole 3 millimeter nonobstructing renal calculus. No other acute intra-abd ominal process.
--- NOTE | 2023-03-02 12:09 | ER ---
Nurse's Notes [facility] Name: Natanael Dyson Age: 28 yrs Sex: Female : 1995 Arrival Date: 03/02/2023 Time: 09:38 Bed 7 Private MD: Diagnosis: UTI/ Urinary tract infection, site not specified;Nephrolithiasis Presentation: 03/02 09:50 Chief complaint: Patient states: R flank pain since with N/V, chills/sweats. ll1 Coronavirus screen: Vaccine status: Patient reports being unvaccinated. Client denies travel out of the [place] in the last 14 days. At this time, the client does not indicate any symptoms associated with coronavirus-19. Ebola Screen: Patient denies travel to an Ebola-affected area in the 21 days before illness onset. Initial Sepsis Screen: Does the patient meet any 2 criteria? HR > 90 bpm. No. Patient's initial sepsis screen is negative. Does the patient have a suspected source of infection? Yes: Dysuria/Frequency/Urgency/UTI. Risk Assessment: Do you want to hurt yourself or someone else? Patient reports no desire to harm self or others. Onset of symptoms was February 28, 2023. 09:50 Method Of Arrival: Ambulatory ll1 09:50 Acuity: THIERNO 3 ll1 Triage Assessment: 09:52 General: Appears uncomfortable, Behavior is cooperative, appropriate for age, restless. ll1 Pain: Complains of pain in R flank Pain currently is 10 out of 10 on a pain scale. GI: Reports nausea, vomiting. : Reports cramping, in right flank(s) pain in right flank(s). Historical: - Allergies: 09:49 Reglan; ll1 09:49 Toradol; ll1 09:49 Compazine; ll1 09:49 Haldol; ll1 - PMHx: 09:49 Anxiety; depressive disorder; Kidney stone; ll1 - PSHx: 09:49 Cholecystectomy; Ligation of fallopian tube; ll1 - Immunization history:: Adult Immunizations up to date. - Social history:: Smoking status: Patient denies any tobacco usage or history of. Screenin:[facility] ED Fall Risk Assessment (Adult) Score/Fall Risk Level 0 - 2 = Low Risk hb Oriented to surroundings, Maintained a safe environment. Abuse screen: Denies threats or abuse. Denies injuries from another. Nutritional screening: No deficits noted. Tuberculosis screening: No symptoms or risk factors identified. Assessment: 12:05 Reassessment: See triage assessment. ld1 12:05 Reassessment: Patient appears in no apparent distress at this time. No changes from ld1 previously documented assessment. Patient and/or family updated on plan of care and expected duration. Pain level reassessed. Pt frequently requesting pain medication. Notified ERP. See MAR for orders. Vital Signs: 09:50 BP 151 / 113; Pulse 115; Resp 18; Temp 98(O); Pulse Ox 100% ; Weight 58.97 kg; Height 5 ll1 ft. 1 in. ; Pain 10/10; 12:04 BP 146 / 89; Pulse 102; Resp 18; Pulse Ox 100% on R/A; ld1 09:50 Body Mass Index 24.56 (58.97 kg, 154.94 cm) ll1 09:50 Pain Scale: Adult ll1 ED Course: 09:41 Patient arrived in ED. ts1 09:42 Gisela Argueta FNP is [facility]. jh7 09:42 Miquel Rios MD is Attending Physician. jh7 09:45 Kellie Dean, ROSEY is Primary Nurse. ld1 09:49 Arm band placed on Patient placed in an exam room, on a stretcher. ll1 09:52 Triage completed. ll1 09:55 Patient has correct armband on for positive identification. Provided Education on: . hb 10:16 Judi Rich, RN is Primary Nurse. hb 10:19 Inserted saline lock: 24 gauge in right forearm, using aseptic technique. Blood ll1 collected. 10:32 CT Stone Protocol In Process Unspecified. EDMS 12:32 No provider procedures requiring assistance completed. IV discontinued, intact, hb bleeding controlled, No redness/swelling at site. Administered Medications: 10:22 Drug: NS 0.9% IV 1000 ml IV at 1 bolus Per protocol; 1000 mL bolus Route: IV; Rate: 1 hb bolus; Site: right forearm; 10:22 Drug: Ondansetron IVP 4 mg IVP once; over 2 minutes Route: IVP; Site: right forearm; hb 10:22 Drug: fentaNYL (PF) IVP 25 mcg IVP once Route: IVP; Site: right forearm; hb 11:25 Drug: morphine IVP or IV 4 mg IVP once over 4 mins Route: IVP; Infused Over: 4 mins; ld1 Site: left forearm; 12:04 Drug: Rocephin IV 1 grams IV at 1 calculated rate once; Given slow IV push per pharmacy ld1 instructions Route: IV; Rate: 1 calculated rate; Site: right forearm; 12:04 Drug: Acetaminophen PO 1000 mg PO once Route: PO; ld1 Medication: 12:33 VIS not applicable for this client. hb Outcome: 12:08 Discharge ordered by MD. blanco 12:32 Discharged to home ambulatory, 12:32 Condition: stable 12:32 Discharge instructions given to patient, Instructed on discharge instructions, follow up and referral plans. medication usage, Demonstrated understanding of instructions, follow-up care, medications, Prescriptions given X 3, 12:34 Patient left the ED. hb Signatures: Dispatcher [employer] EDMS Judi Rich RN RN Brandi Cotter RN RN 1 Kellie Dean RN RN ld1 Gisela Argueta, STEEL FABRICATOR STEEL FABRICATOR 7 Lianne iVcente, IKER PAS ts1
--- NOTE | 2023-03-02 12:09 | EDPHYS ---
Physician Documentation [facility] Name: Natanael Dyson Age: 28 yrs Sex: Female : 1995 Arrival Date: 03/02/2023 Time: 09:38 Bed 7 Private MD: ED Physician Miquel Rios HPI: 03/02 09:50 This 28 yrs old Female presents to ER via Ambulatory with complaints of Back Pain. jh7 09:50 The patient presents with pain that is acute, with no known mechanism of injury. The jh7 symptoms are located in the right low back. Onset: The symptoms/episode began/occurred 3 day(s) ago. The pain does not radiate. Associated signs and symptoms: Pertinent positives: nausea, vomiting, chills. Patient reports right flank pain with nausea and vomiting for the past 3 days. Reports a history of renal stones. Does not see a urologist.. Historical: - Allergies: 09:49 Reglan; ll1 09:49 Toradol; ll1 09:49 Compazine; ll1 09:49 Haldol; ll1 - PMHx: 09:49 Anxiety; depressive disorder; Kidney stone; ll1 - PSHx: 09:49 Cholecystectomy; Ligation of fallopian tube; ll1 - Immunization history:: Adult Immunizations up to date. - Social history:: Smoking status: Patient denies any tobacco usage or history of. ROS: 09:50 Constitutional: Negative for fever, chills, and weight loss, Eyes: Negative for injury, jh7 pain, redness, and discharge, Neck: Negative for injury, pain, and swelling, Cardiovascular: Negative for chest pain, palpitations, and edema, Respiratory: Negative for shortness of breath, cough, wheezing, and pleuritic chest pain, 09:50 MS/Extremity: Negative for injury and deformity, Skin: Negative for injury, rash, and discoloration, Neuro: Negative for headache, weakness, numbness, tingling, and seizure, 09:50 Abdomen/GI: Positive for nausea and vomiting, Negative for abdominal pain, diarrhea, constipation, 09:50 Back: Positive for flank pain, 09:50 : Positive for urinary symptoms, flank pain, urinary frequency, small amounts, burning with urination, Negative for vaginal discharge, 09:50 All other systems are negative, Exam: 09:50 Head/Face: Normocephalic, atraumatic. Eyes: Pupils equal round and reactive to light, [facility] extra-ocular motions intact. Lids and lashes normal. Conjunctiva and sclera are non-icteric and not injected. Cornea within normal limits. Periorbital areas with no swelling, redness, or edema. Neck: Trachea midline, no thyromegaly or masses palpated, and no cervical lymphadenopathy. Supple, full range of motion without nuchal rigidity, or vertebral point tenderness. No Meningismus. Cardiovascular: Regular rate and rhythm with a normal S1 and S2. No gallops, murmurs, or rubs. Normal PMI, no JVD. No pulse deficits. Respiratory: Lungs have equal breath sounds bilaterally, clear to auscultation and percussion. No rales, rhonchi or wheezes noted. No increased work of breathing, no retractions or nasal flaring. Abdomen/GI: Soft, non-tender, with normal bowel sounds. No distension or tympany. No guarding or rebound. No evidence of tenderness throughout. Skin: Warm, dry with normal turgor. Normal color with no rashes, no lesions, and no evidence of cellulitis. MS/ Extremity: Pulses equal, no cyanosis. Neurovascular intact. Full, normal range of motion. Neuro: Awake and alert, GCS 15, oriented to person, place, time, and situation. Motor strength 5/5 in all extremities. Sensory grossly intact. Normal gait. 09:50 Constitutional: The patient appears alert, awake, in obvious pain, 09:50 Back: CVA tenderness, that is moderate, is noted on the right, 09:50 : CVA tenderness, on the right, Vital Signs: 09:50 BP 151 / 113; Pulse 115; Resp 18; Temp 98(O); Pulse Ox 100% ; Weight 58.97 kg; Height 5 ll1 ft. 1 in. ; Pain 10/10; 12:04 BP 146 / 89; Pulse 102; Resp 18; Pulse Ox 100% on R/A; ld1 09:50 Body Mass Index 24.56 (58.97 kg, 154.94 cm) ll1 09:50 Pain Scale: Adult ll1 MDM: 09:42 Patient medically screened. [facility] 12:10 Differential diagnosis: Pyelonephritis Ureterolithiasis UTI. Data reviewed: vital [facility] signs, nurses notes, lab test result(s), radiologic studies, CT scan. I considered the following discharge prescriptions or medication management in the emergency department Medications were administered in the Emergency Department. See MAR. Counseling: I had a detailed discussion with the patient and/or guardian regarding the historical points, exam findings, and any diagnostic results supporting the discharge/admit diagnosis, the need for outpatient follow up, a urologist, to return to the emergency department if symptoms worsen or persist or if there are any questions or concerns that arise at home. Response to treatment: the patient's symptoms have markedly improved after treatment. 03/02 09:50 Order name: CBC with Diff; Complete Time: 10:40 [facility] 03/02 09:50 Order name: CMP; Complete Time: 10:53 [facility] 03/02 09:50 Order name: Lipase; Complete Time: 10:53 [facility] 03/02 09:50 Order name: Test, Urine; Complete Time: 10:40 [facility] 03/02 09:50 Order name: Urinalysis w/ reflexes; Complete Time: 11:00 [facility] 03/02 10:56 Order name: Urine Culture EDSC 03/02 09:51 Order name: CT Stone Protocol; Complete Time: 11:59 [facility] 03/02 09:50 Order name: IV Saline Lock; Complete Time: 10:22 [facility] 03/02 09:50 Order name: Labs collected and sent; Complete Time: : [facility] 03/02 12:02 Order name: Recheck Vital Signs; Complete Time: 12:04 [facility] Administered Medications: 10:22 Drug: NS 0.9% IV 1000 ml IV at 1 bolus Per protocol; 1000 mL bolus Route: IV; Rate: 1 hb bolus; Site: right forearm; 10:22 Drug: Ondansetron IVP 4 mg IVP once; over 2 minutes Route: IVP; Site: right forearm; hb 10:22 Drug: fentaNYL (PF) IVP 25 mcg IVP once Route: IVP; Site: right forearm; hb 11:25 Drug: morphine IVP or IV 4 mg IVP once over 4 mins Route: IVP; Infused Over: 4 mins; ld1 Site: left forearm; 12:04 Drug: Rocephin IV 1 grams IV at 1 calculated rate once; Given slow IV push per pharmacy ld1 instructions Route: IV; Rate: 1 calculated rate; Site: right forearm; 12:04 Drug: Acetaminophen PO 1000 mg PO once Route: PO; ld1 Disposition: 13:08 Co-signature as Attending Physician, Miquel Rios MD I agree with the assessment and kdr plan of care. Disposition Summary: 03/02/23 12:08 Discharge Ordered Notes: Location: Home [facility] Problem: new [facility] Symptoms: are unchanged [facility] Condition: Stable [facility] Diagnosis - UTI/ Urinary tract infection, site not specified [facility] - Nephrolithiasis [facility] Followup: [facility] - With: Private Physician - When: 2 - 3 days - Reason: Recheck today's complaints Discharge Instructions: - Discharge Summary Sheet [facility] - Dysuria [facility] - Kidney Stones [facility] - Urinary Tract Infection, Adult [facility] - Dietary Guidelines to Help Prevent Kidney Stones [facility] Forms: - Medication Reconciliation Form [facility] - Thank You Letter [facility] - Antibiotic Education [facility] - Patient Portal Instructions [facility] - Leadership Thank You Letter [facility] Prescriptions: - Flomax 0.4 mg Oral capsule - take 2 capsule ORAL route daily for 7 days; 14 capsule; Refills: 0, Product [facility] Selection Permitted - Ibuprofen 600 mg Oral tablet - take 1 tablet ORAL route every 8 hours As needed take with food; 30 tablet; [facility] Refills: 0, Product Selection Permitted - Cipro 500 mg Oral Tablet - take 1 tablet ORAL route every 12 hours for 7 days; 14 tablet; Refills: 0, [facility] Product Selection Permitted Signatures: Dispatcher [employer] EDMiquel Burns MD MD kdr Baxter, Heather, RN RN hb Lewis, Lynsay RN RN 1 Kellie Dean RN RN ld1 Gisela Argueta FNP [place] [id number]
[2023-03-02] MEDS ORDERED: CEFTRIAXONE 1000 MG/VIAL ONE (12:14)
[2023-03-02] MEDS ORDERED: ACETAMINOPHEN 500 MG TAB ONE (12:16)
== END 2023-03-02 12:34 | disposition home or self-care (01) ==
LOC: ER 09:38
DX: N39.0 Urinary tract infection, site not specified (principal); N20.0 Calculus of kidney; Z87.442 Personal history of urinary calculi; Z88.1 Allergy status to other antibiotic agents; Z88.5 Allergy status to narcotic agent; Z88.8 Allergy status to other drugs, medicaments and biological substances
CPT/HCPCS: 87088; 85025; 81001; 87086; 36415; 81025; 83690; 80053; 76377; 74176; 99284; J3010; J2405; J7030; J0696

== ENCOUNTER 2023-03-09 09:40 | Emergency (ER) | payer OTHER ==
--- OUTSIDE RECORDS SUMMARY | 2023-03-09 10:00 | XMS REPORT | Continuity of Care Document ---
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 Branch at bedtime. ondansetron 2023-0 Yes [id number] 4mg Take 1 [facility] 4 mg 3-21 tablet by ity of disintegrat 00:00: mouth [place] ing tablet 00 every 8 Medica l (eight) Branch hours as needed for Nausea and Vomiting (N/V). sucralfate 2023-0 Yes [id number] 1g Take 1 [facility] nivers 1 gram 3-21 tablet by ity of tablet 00:00: mouth [place] 00 before Medical meals and Branch at bedtime. ondansetron 2023-0 Yes [id number] 4mg Take 1 [facility] 4 mg 3-21 tablet by ity of disintegrat 00:00: mouth [place] ing tablet 00 every 8 Medica l (eight) Branch hours as needed for Nausea and Vomiting (N/V). sucralfate 2023-0 Yes [id number] 1g Take 1 [facility] nivers 1 gram 3-21 tablet by ity of tablet 00:00: mouth [place] 00 before Medical meals and Branch at bedtime. ondansetron 2023-0 Yes [id number] 4mg Take 1 [facility] 4 mg 3-21 tablet by ity of disintegrat 00:00: mouth [place] ing tablet 00 every 8 Medica l (eight) Branch hours as needed for Nausea and Vomiting (N/V). sucralfate 2023-0 Yes [id number] 1g Take 1 [facility] nivers 1 gram 3-21 tablet by ity of tablet 00:00: mouth [place] 00 before Medical meals and Branch at bedtime. ondansetron 2023-0 Yes [id number] 4mg Take 1 [facility] 4 mg 3-21 tablet by ity of disintegrat 00:00: mouth [place] ing tablet 00 every 8 Medica l (eight) Branch hours as needed for Nausea and Vomiting (N/V). sucralfate 2023-0 Yes [id number] 1g Take 1 [facility] nivers 1 gram 3-21 tablet by ity of tablet 00:00: mouth [place] 00 before Medical meals and Branch at bedtime. ondansetron 2023-0 Yes [id number] 4mg Take 1 [facility] 4 mg 3-21 tablet by ity of disintegrat 00:00: mouth [place] ing tablet 00 every 8 Medica l (eight) Branch hours as needed for Nausea and Vomiting (N/V). sucralfate 2023-0 Yes [id number] 1g Take 1 [facility] n[facility] 1 gram 3-21 tablet by ity of tablet 00:00: mouth [place] 00 before Medical meals and Branch at bedtime. ondansetron 2023-0 Yes [id number] 4mg Take 1 [facility] 4 mg 3-21 tablet by ity of disintegrat 00:00: mouth [place] ing tablet 00 every 8 Medica l (eight) Branch hours as needed for Nausea and Vomiting (N/V). sucralfate 2023-0 Yes [id number] 1g Take 1 [facility] nivers 1 gram 3-21 tablet by ity of tablet 00:00: mouth [place] 00 before Medical meals and Branch at bedtime. ondansetron 2023-0 Yes [id number] 4mg Take 1 [facility] 4 mg 3-21 tablet by ity of disintegrat 00:00: mouth [place] ing tablet 00 every 8 Medica l (eight) Branch hours as needed for Nausea and Vomiting (N/V). sucralfate 2023-0 Yes [id number] 1g Take 1 [facility] nivers 1 gram 3-21 tablet by ity of tablet 00:00: mouth [place] 00 before Medical meals and Branch at bedtime. ondansetron 2023-0 Yes [id number] 4mg Take 1 [facility] 4 mg 3-21 tablet by ity of disintegrat 00:00: mouth [place] ing tablet 00 every 8 Medica l (eight) Branch hours as needed for Nausea and Vomiting (N/V). sucralfate 2023-0 Yes [id number] 1g Take 1 [facility] nivers 1 gram 3-21 tablet by ity of tablet 00:00: mouth [place] 00 before Medical meals and Branch at bedtime. ondansetron 2023-0 Yes [id number] 4mg Take 1 [facility] 4 mg 3-21 tablet by ity of disintegrat 00:00: mouth [place] ing tablet 00 every 8 Medica l (eight) Branch hours as needed for Nausea and Vomiting (N/V). sucralfate 2023-0 Yes [id number] 1g Take 1 [facility] n[facility] 1 gram 3-21 tablet by ity of tablet 00:00: mouth [place] 00 before Medical meals and Branch at bedtime. pantoprazol 2023-0 2023- No [id number] 40mg Take 1 [facility] e 40 mg EC 3-21 04-05 tablet by ity of tablet 00:00: 04:59 mouth in [place] 00 :00 the Medical morning Branch for 14 days. pantoprazol 2023-0 2023- No [id number] 40mg Take 1 [facility] e 40 mg EC 3-21 04-05 tablet by ity of tablet 00:00: 04:59 mouth in [place] 00 :00 the Medical morning Branch for [...] tablet by ity o f 00:00: mouth. [place] [facility] traMADoL 50 3-0 Yes 50mg Take 1 [facility] ers mg tablet 3-13 tablet by ity o f 00:00: mouth. [place] [facility] traMADoL 50 3-0 Yes 50mg Take 1 [facility] ers mg tablet 3-13 tablet by ity o f 00:00: mouth. [place] [facility] traMADoL 50 3-0 Yes 50mg Take 1 [facility] ers mg tablet 3-13 tablet by ity o f 00:00: mouth. [place] [facility] traMADoL 50 3-0 Yes 50mg Take 1 [facility] ers mg tablet 3-13 tablet by ity o f 00:00: mouth. [place] [facility] traMADoL 50 3-0 Yes 50mg Take 1 [facility] ers mg tablet 3-13 tablet by ity o f 00:00: mouth. [place] [facility] traMADoL 50 3-0 Yes 50mg Take 1 [facility] ers mg tablet 3-13 tablet by ity o f 00:00: mouth. [place] [facility] traMADoL 50 2023-0 Yes 50mg Take 1 [facility] ers mg tablet 3-13 tablet by ity o f 00:00: mouth. [place] [facility] traMADoL 50 2023-0 Yes 50mg Take 1 [facility] ers mg tablet 3-13 tablet by ity o f 00:00: mouth. [place] [facility] traMADoL 50 2023-0 Yes 50mg [...] 00:00: mouth. Medical Branch ibuprofen 3-0 Yes [id number] 600mg Take 1 [facility] 600 mg 3-05 [id number] tablet by ity of tablet 00:00: mouth [place] 00 every 6 Medical (six) Branch hours as needed for Pain (scale 4-6). ibuprofen 2022-0 Yes [id number] 600mg Take 1 [facility] 600 mg 3-05 [id number] tablet by ity of tablet 00:00: mouth [place] 00 every 6 Medical (six) Branch hours as needed for Pain (scale 4-6). ibuprofen 3-0 Yes [id number] 600mg Take 1 [facility] 600 mg 3-05 [id number] tablet by ity of tablet 00:00: mouth [place] 00 every 6 Medical (six) Branch hours as needed for Pain (scale 4-6). ibuprofen 3-0 2023- No [id number] 600mg Take 1 [facility] 600 mg 3-05 03-21 [id number] tablet by ity o f tablet 00:00: 00:00 mouth [place] 00 :00 every 6 Medical (six) Branch hours as needed for Pain (scale 4-6). citalopram 2022-0 Yes 10mg Take 1 [facility] rs 10 mg 2-17 tablet by ity of tablet 00:00: mouth in [place] 00 the Medical morning. Branch QUEtiapine 2023-0 Yes [facility] 400 mg 2-17 ity of tablet 00:00: [place] 00 Medical Branch gabapentin 2023-0 Yes [facility] 600 mg 2-17 ity of tablet 00:00: [place] 00 Medical Branch citalopram 2023-0 Yes 10mg Take 1 [facility] rs 10 mg 2-17 tablet by ity of tablet 00:00: mouth in [place] the Medical morning. Branch QUEtiapine 2023-0 Yes [facility] 400 mg 2-17 ity of tablet 00:00: [place] 00 Medical Branch gabapentin 2023-0 Yes [facility] 600 mg 2-17 ity of tablet 00:00: [place] 00 Medical Branch citalopram 2023-0 Yes 10mg Take 1 [facility] rs 10 mg 2-17 tablet by ity of tablet 00:00: mouth in [place] the Medical morning. Branch QUEtiapine 2023-0 Yes [facility] 400 mg 2-17 ity of tablet 00:00: [place] 00 Medical Branch gabapentin 2023-0 Yes [facility] 600 mg 2-17 ity of tablet 00:00: [place] 00 Medical Branch citalopram 2023-0 Yes 10mg Take 1 [facility] rs 10 mg 2-17 tablet by ity of tablet 00:00: mouth in [place] the Medical morning. Branch QUEtiapine 2023-0 Yes [facility] 400 mg 2-17 ity of tablet 00:00: [place] 00 Medical Branch gabapentin 2023-0 Yes [facility] 600 mg 2-17 ity of tablet 00:00: [place] [address] Medical Branch citalopram 2023-0 Yes 10mg Take 1 [facility] rs 10 mg 2-17 tablet by ity of tablet 00:00: mouth in [place] the Medical morning. Branch QUEtiapine 2023-0 Yes [facility] 400 mg 2-17 ity of tablet 00:00: [place] 00 Medical Branch gabapentin 2023-0 Yes [facility] 600 mg 2-17 ity of tablet 00:00: [place] 00 Medical Branch citalopram 2023-0 Yes 10mg Take 1 [facility] rs 10 mg 2-17 tablet by ity of tablet 00:00: mouth in [place] the Medical morning. Branch QUEtiapine 2023-0 Yes [facility] 400 mg 2-17 ity of tablet 00:00: [place] 00 Medical Branch gabapentin 2023-0 Yes [facility] 600 mg 2-17 ity of tablet 00:00: [place] 00 Medical Branch citalopram 2023-0 Yes 10mg Take 1 [facility] rs 10 mg 2-17 tablet by ity of tablet 00:00: mouth in [place] the Medical morning. Branch QUEtiapine 2023-0 Yes [facility] 400 mg 2-17 ity of tablet 00:00: [place] 00 Medical Branch gabapentin 2023-0 Yes [facility] 600 mg 2-17 ity of tablet 00:00: [place] 00 Medical Branch citalopram 2023-0 Yes 10mg Take 1 [facility] rs 10 mg 2-17 tablet by ity of tablet 00:00: mouth in [place] the Medical morning. Branch QUEtiapine 2023-0 Yes [facility] 400 mg 2-17 ity of tablet 00:00: [place] 00 Medical Branch gabapentin 2023-0 Yes [facility] 600 mg 2-17 ity of tablet 00:00: [place] 00 Medical Branch citalopram 2023-0 Yes 10mg Take 1 [facility] rs 10 mg 2-17 tablet by ity of tablet 00:00: mouth in [place] the Medical morning. Branch QUEtiapine 2023-0 Yes [facility] 400 mg 2-17 ity of tablet 00:00: [place] 00 Medical Branch gabapentin 2023-0 Yes [facility] 600 mg 2-17 ity of tablet 00:00: [place] 00 Medical Branch citalopram 2023-0 Yes 10mg Take 1 [facility] rs 10 mg 2-17 tablet by ity of tablet 00:00: mouth in [place] the Medical morning. Branch QUEtiapine 2023-0 Yes [facility] 400 mg 2-17 ity of tablet 00:00: [place] 00 Medical Branch gabapentin 2023-0 Yes [facility] 600 mg 2-17 ity of tablet 00:00: [place] 00 Medical Branch citalopram 2023-0 Yes 10mg Take 1 [facility] rs 10 mg 2-17 tablet by ity of tablet 00:00: mouth in [place] the Medical morning. Branch QUEtiapine 2023-0 Yes [facility] 400 mg 2-17 ity of tablet 00:00: [place] 00 Medical Branch gabapentin 2023-0 Yes [facility] 600 mg 2-17 ity of tablet 00:00: [place] [address] Medical Branch citalopram 2023-0 Yes 10mg Take 1 [facility] rs 10 mg 2-17 tablet by ity of tablet 00:00: mouth in [place] the Medical morning. Branch QUEtiapine 2023-0 Yes [facility] 400 mg 2-17 ity of tablet 00:00: [place] 00 Medical Branch gabapentin 2023-0 Yes [facility] 600 mg 2-17 ity of tablet 00:00: [place] 00 Medical Branch citalopram 2023-0 Yes 10mg Take 1 [facility] rs 10 mg 2-17 tablet by ity of tablet 00:00: mouth in [place] the Medical morning. Branch QUEtiapine 2023-0 Yes [facility] 400 mg 2-17 ity of tablet 00:00: [place] 00 Medical Branch gabapentin 2023-0 Yes [facility] 600 mg 2-17 ity of tablet 00:00: [place] 00 Medical Branch citalopram 2023-0 Yes 10mg Take 1 [facility] rs 10 mg 2-17 tablet by ity of tablet 00:00: mouth in [place] the Medical morning. Branch QUEtiapine 3-0 Yes [facility] 400 mg 2-17 ity of tablet 00:00: [place] 00 Medical Branch gabapentin 2023-0 Yes [facility] 600 mg 2-17 ity of tablet 00:00: [place] [address] Medical Branch citalopram 2023-0 Yes 10mg Take 1 [facility] rs 10 mg 2-17 tablet by ity of tablet 00:00: mouth in [place] the Medical morning. Branch QUEtiapine 3-0 Yes [facility] 400 mg 2-17 ity of tablet 00:00: [place] 00 Medical Branch gabapentin 2023-0 Yes [facility] 600 mg 2-17 ity of tablet 00:00: [place] 00 Medical Branch citalopram 2023-0 Yes 10mg Take 1 [facility] rs 10 mg 2-17 tablet by ity of tablet 00:00: mouth in [place] the Medical morning. Branch QUEtiapine 2023-0 Yes [facility] 400 mg 2-17 ity of tablet 00:00: [place] 00 Medical Branch gabapentin 2023-0 Yes [facility] 600 mg 2-17 ity of tablet 00:00: [place] 00 Medical Branch methylPREDN 2023-0 Yes [id number] Take by [facility] ISolone 2-11 mouth ity of (MEDROL, 00:00: SEE-INSTRU [place]EL[place],) 4 mg 00 CTIONS. Medica l tablets follow Branch package directions methylPREDN 2023-0 Yes [id number] Take by [facility] ISolone 2-11 mouth ity of (MEDROL, 00:00: SEE-INSTRU [place],) 4 mg 00 CTIONS. Medica l tablets follow Branch package directions methylPREDN 2023-0 Yes [id number] Take by [facility] ISolone 2-11 mouth ity of (MEDROL, 00:00: SEE-INSTRU [place],) 4 mg 00 CTIONS. Medica l tablets follow Branch package directions methylPREDN 2023-0 Yes [id number] Take by [facility] ISolone 2-11 mouth ity of (MEDROL, 00:00: SEE-INSTRU [place],) 4 mg 00 CTIONS. Medica l tablets follow Branch package directions methylPREDN 2023-0 Yes [id number] Take by [facility] ISolone 2-11 mouth ity of (MEDROL, 00:00: SEE-INSTRU [place],) 4 mg 00 CTIONS. Medica l tablets follow Branch package directions methylPREDN 2023-0 Yes [id number] Take by [facility] ISolone 2-11 mouth ity of (MEDROL, 00:00: SEE-INSTRU [place],) 4 mg 00 CTIONS. Medica l tablets follow Branch package directions methylPREDN 2023-0 Yes [id number] Take by [facility] ISolone 2-11 mouth ity of (MEDROL, 00:00: SEE-INSTRU [place],) 4 mg 00 CTIONS. Medica l tablets follow Branch package directions methylPREDN 2023-0 Yes [id number] Take by [facility] ISolone 2-11 mouth ity of (MEDROL, 00:00: SEE-INSTRU [place],) 4 mg 00 CTIONS. Medica l tablets follow Branch package directions methylPREDN 2023-0 Yes [id number] Take by [facility] ISolone 2-11 mouth ity of (MEDROL, 00:00: SEE-INSTRU [place],) 4 mg 00 CTIONS. Medica l tablets follow Branch package directions methylPREDN 2023-0 Yes [id number] Take by [facility] ISolone 2-11 mouth ity of (MEDROL, 00:00: SEE-INSTRU [place],) 4 mg 00 CTIONS. Medica l tablets follow Branch package directions methylPREDN 2023-0 Yes [id number] Take by [facility] ISolone 2-11 mouth ity of (MEDROL, 00:00: SEE-INSTRU [place],) 4 mg 00 CTIONS. Medica l tablets follow Branch package directions methylPREDN 2023-0 Yes [id number] Take by [facility] ISolone 06-23 mouth ity of (MEDROL, 00:00: SEE-INSTRU [place],) 4 mg 00 CTIONS. Medica l tablets follow Branch package directions methylPREDN 2022-0 Yes [id number] Take by [facility] ISolone 11 mouth ity of (MEDROL, 00:00: SEE-INSTRU [place],) 4 mg 00 CTIONS. Medica l tablets follow Branch package directions methylPREDN 2022-0 Yes [id number] Take by [facility] ISolone 11 mouth ity of (MEDROL, 00:00: SEE-INSTRU [place],) 4 mg 00 CTIONS. Medica l tablets follow Branch package directions bromphenira 2022- No [id number] 5mL Take 5 mL [facility] mine-pseudo 06-23 by mouth 4 i ty of ephedrine-D 00:00: 05:59 (four) [place] M (BROMFED 00 :00 times Medical DM) 2-10 daily as Bran ch mg/5 mL needed for syrup Cold symptoms for up to 10 days. methocarbam 2022- No [id number] 750mg Take 1 [facility] oL 750 mg 06-23 [id number] tablet by it y of tablet 00:00: [...] [place] butalbital- 2021-05- No 1{tbl} 1 tablet, [facility] acetaminoph 07-06 Oral, ity of [...] 05/05/22 at 1315, Routine butalbital- 2021-05 Yes [id number] 1{tbl} Take 1 [facility] acetaminoph 2-24 tablet by ity of en-caff 00:00: mouth [place] 50-325-40 00 every 4 Medical mg tablet (four) Branch hours as needed for Pain (scale 7-10). butalbital- 2021-05 Yes [id number] 1{tbl} Take 1 [facility] acetaminoph 2-24 tablet by ity of en-caff 00:00: mouth [place] 50-325-40 00 every 4 Medical mg tablet (four) Branch hours as needed for Pain (scale 7-10). butalbital- 2021-05 Yes [id number] 1{tbl} Take 1 [facility] acetaminoph 2-24 tablet by ity of en-caff 00:00: mouth [place] 50-325-40 00 every 4 Medical mg tablet (four) Branch hours as needed for Pain (scale 7-10). butalbital- 2021-05 Yes [id number] 1{tbl} Take 1 [facility] acetaminoph 2-24 tablet by ity of en-caff 00:00: mouth [place] 50-325-40 00 every 4 Medical mg tablet (four) Branch hours as needed for Pain (scale 7-10). butalbital2021-05 Yes [id number] 1{tbl} Take 1 [facility] acetaminoph 2-24 tablet by ity of en-caff 00:00: mouth [place] 50-325-40 00 every 4 Medical mg tablet (four) Branch hours as needed for Pain (scale 7-10). butalbital2021-05 Yes [id number] 1{tbl} Take 1 [facility] acetaminoph 2-24 tablet by ity of en-caff 00:00: mouth [place] 50-325-40 00 every 4 Medical mg tablet (four) Branch hours as needed for Pain (scale 7-10). butalbital2021-05 Yes [id number] 1{tbl} Take 1 [facility] acetaminoph 2-24 tablet by ity of en-caff 00:00: mouth [place] 50-325-40 00 every 4 Medical mg tablet (four) Branch hours as needed for Pain (scale 7-10). butalbital2021-05 Yes [id number] 1{tbl} Take 1 [facility] acetaminoph 2-24 tablet by ity of en-caff 00:00: mouth [place] 50-325-40 00 every 4 Medical mg tablet (four) Branch hours as needed for Pain (scale 7-10). butalbital- 2021-05 Yes [id number] 1{tbl} Take 1 [facility] acetaminoph 2-24 tablet by ity of en-caff 00:00: mouth [place] 50-325-40 00 every 4 Medical mg tablet (four) Branch hours as needed for Pain (scale 7-10). butalbital- 2021-05 Yes [id number] 1{tbl} Take 1 [facility] acetaminoph 2-24 tablet by ity of en-caff 00:00: mouth [place] 50-325-40 00 every 4 Medical mg tablet (four) Branch hours as needed for Pain (scale 7-10). butalbital- 2021-05 Yes [id number] 1{tbl} Take 1 [facility] acetaminoph 2-24 tablet by ity of en-caff 00:00: mouth [place] 50-325-40 00 every 4 Medical mg tablet (four) Branch hours as needed for Pain (scale 7-10). butalbital- 2021-05 Yes [id number] 1{tbl} Take 1 [facility] acetaminoph 2-24 tablet by ity of en-caff 00:00: mouth [place] 50-325-40 00 every 4 Medical mg tablet (four) Branch hours as needed for Pain (scale 7-10). butalbital- 2021-05 Yes [id number] 1{tbl} Take 1 [facility] acetaminoph 2-24 tablet by ity of en-caff 00:00: mouth [place] 50-325-40 00 every 4 Medical mg tablet (four) Branch hours as needed for Pain (scale 7-10). butalbital- 2021-05 Yes [id number] 1{tbl} Take 1 [facility] acetaminoph 2-24 tablet by ity of en-caff 00:00: mouth [place] 50-325-40 00 every 4 Medical mg tablet (four) Branch hours as needed for Pain (scale 7-10). butalbital2021-05 Yes [id number] 1{tbl} Take 1 [facility] acetaminoph 2-24 tablet by ity of en-caff 00:00: mouth [place] 50-325-40 00 every 4 Medical mg tablet (four) Branch hours as needed for Pain (scale 7-10). butalbital2021-05 Yes [id number] 1{tbl} Take 1 [facility] acetaminoph 2-24 tablet [...] 04/26/22 at 0845, Routine cephALEXin 2021-05- No [id number] 500mg Take 1 [facility] (KEFLEX) 06-27 capsule [...] Nausea and Vomiting (N/V). galcanezuma 2021-05 Yes [id number] 120mg inject 120 [facility] b-gnlm 1-28 mg under ity of prefilled 00:00: [place] (EMGALITY[place] 00 once every Med ical subcutaneou month. Branch s injection galcanezuma 2021-05 Yes [id number] 120mg inject 120 [facility] b-gnlm 1-28 mg under ity of prefilled 00:00: [place] (EMGALITY) 00 once every Med ical subcutaneou month. Branch s injection galcanezuma 2021-05 Yes [id number] 120mg inject 120 [facility] b-gnlm 1-28 mg under ity of prefilled 00:00: [place] (EMGALITY) 00 once every Med ical subcutaneou month. Branch s injection galcanezuma 2021-05 Yes [id number] 120mg inject 120 [facility] b-gnlm 1-28 mg under ity of prefilled 00:00: [place] (EMGALITY) 00 once every Med ical subcutaneou month. Branch s injection galcanezuma 2021-05 Yes [id number] 120mg inject 120 [facility] b-gnlm 1-28 mg under ity of prefilled 00:00: [place] (EMGALITY) 00 once every Med ical subcutaneou month. Branch s injection galcanezuma 2021-05 Yes [id number] 120mg inject 120 [facility] b-gnlm 1-28 mg under ity of prefilled 00:00: [place] (EMGALITY) 00 once every Med ical subcutaneou month. Branch s injection galcanezuma 2021-05 Yes [id number] 120mg inject 120 [facility] b-gnlm 1-28 mg under ity of prefilled 00:00: [place] (EMGALITY) 00 once every Med ical subcutaneou month. Branch s injection galcanezuma 2021-05 Yes [id number] 120mg inject 120 [facility] b-gnlm 1-28 mg under ity of prefilled 00:00: [place] (EMGALITY) 00 once every Med ical subcutaneou month. Branch s injection galcanezuma 2021-05 Yes [id number] 120mg inject 120 [facility] b-gnlm 1-28 mg under ity of prefilled 00:00: [place] (EMGALITY) 00 once every Med ical subcutaneou month. Branch s injection galcanezuma 2021-05 Yes [id number] 120mg inject 120 [facility] b-gnlm 1-28 mg under ity of prefilled 00:00: the [place] (EMGALITY) 00 once every Med ical subcutaneou month. Branch s injection galcanezuma 2021-05 Yes [id number] 120mg inject 120 [facility] b-gnlm 1-28 mg under ity of prefilled 00:00: [place] (EMGALITY) 00 once every Med ical subcutaneou month. Branch s injection galcanezuma 2021-05 Yes [id number] 120mg inject 120 [facility] b-gnlm 1-28 mg under ity of prefilled 00:00: the [place] (EMGALITY) 00 once every Med ical subcutaneou month. Branch s injection galcanezuma 2021-05 Yes [id number] 120mg inject 120 [facility] b-gnlm 1-28 mg under ity of prefilled 00:00: [place] (EMGALITY) 00 once every Med ical subcutaneou month. Branch s injection galcanezuma 2021-05 Yes [id number] 120mg inject 120 [facility] b-gnlm 1-28 mg under ity of prefilled 00:00: [place] (EMGALITY) 00 once every Med ical subcutaneou month. Branch s injection galcanezuma 2021-05 Yes [id number] 120mg inject 120 [facility] b-gnlm 1-28 mg under ity of prefilled 00:00: [place] (EMGALITY) 00 once every Med ical subcutaneou month. Branch s injection galcanezuma 2021-05 Yes [id number] 120mg inject 120 [facility] b-gnlm 1-28 mg under ity of prefilled 00:00: the [place] (EMGALITY) 00 once every Med ical subcutaneou month. Branch s injection galcanezuma 2021-05 Yes [id number] 120mg inject 120 [facility] b-gnlm 1-28 mg under ity of prefilled 00:00: [place] (EMGALITY) 00 once every Med ical subcutaneou month. Branch s injection galcanezuma 2021-05 Yes [id number] 120mg inject 120 [facility] b-gnlm 1-28 mg under ity of prefilled 00:00: [place] (EMGALITY) 00 once every Med ical subcutaneou month. Branch s injection galcanezuma 2021-05 Yes [id number] 120mg inject 120 [facility] b-gnlm 1-28 mg under ity of prefilled 00:00: [place] (EMGALITY) 00 once every Med ical subcutaneou month. Branch s injection galcanezuma 2021-05 Yes [id number] 120mg inject 120 [facility] b-gnlm 1-28 mg under ity of prefilled 00:00: [place] (EMGALITY) 00 once every Med ical subcutaneou month. Branch s injection galcanezuma 2021-05 Yes [id number] 120mg inject 120 [facility] b-gnlm 1-28 mg under ity of prefilled 00:00: [place] (EMGALITY) 00 once every Med ical subcutaneou month. Branch s injection galcanezuma 2021-05 Yes [id number] 120mg inject 120 [facility] b-gnlm 1-28 mg under ity of prefilled 00:00: [place] (EMGALITY) 00 once every Med ical subcutaneou month. Branch s injection galcanezuma 2021-05 Yes [id number] 120mg inject 120 [facility] b-gnlm 1-28 mg under ity of prefilled 00:00: the [place] (EMGALITY) 00 once every Med ical subcutaneou month. Branch s injection galcanezuma 2021-05 Yes [id number] 120mg inject 120 [facility] b-gnlm 1-28 mg under ity of prefilled 00:00: the [place] (EMGALITY) 00 once every Med ical subcutaneou month. Branch s injection galcanezuma 2021-05 Yes [id number] 120mg inject 120 [facility] b-gnlm 1-28 mg under ity of prefilled 00:00: [place] (EMGALITY) 00 once every Med ical subcutaneou month. Branch s injection galcanezuma 2021-05 Yes [id number] 120mg inject 120 [facility] b-gnlm 1-28 mg under ity of prefilled 00:00: [place] (EMGALITY) 00 once every Med ical subcutaneou month. Branch s injection galcanezuma 2021-05 Yes [id number] 120mg inject 120 [facility] b-gnlm 1-28 mg under ity of prefilled 00:00: [place] (EMGALITY) 00 once every Med ical subcutaneou month. Branch s injection galcanezuma 2021-05 Yes [id number] 120mg inject 120 [facility] b-gnlm 1-28 mg under [facility] prefilled [place]EM[place] once every Med ical subcutaneou month. Branch s injection galcanezuma 2021-05 Yes [id number] 120mg inject 120 [facility] b-gnlm 1-28 mg under [facility] prefilled 00:[place]: [place] (EMGAL[place] 00 once every Med ical subcutaneou month. Branch s injection galcanezuma 2021-05 Yes [id number] 120mg inject 120 [facility] b-gnlm 1-28 mg under [facility] prefilled 00:[place]: [place] (EMGAL[place] 00 once every Med ical subcutaneou month. Branch s injection galcanezuma 2021-05 Yes [id number] 120mg inject 120 [facility] b-gnlm 1-28 mg under [facility] prefilled 00:00: [place] (EMGAL[place] 00 once every Med ical subcutaneou month. Branch s injection galcanezuma 2021-05 Yes [id number] 120mg inject 120 [facility] b-gnlm 1-28 mg under [facility] prefilled 00:00: [place] (EMGAL[place] 00 once every Med ical subcutaneou month. Branch s injection galcanezuma 2021-05 Yes [id number] 120mg inject 120 [facility] b-gnlm 1-28 mg under [facility] of prefilled 00:00: [place] (EMGAL[place] 00 once every Med ical subcutaneou month. Branch s injection galcanezuma 2021-05 Yes [id number] 120mg inject 120 [facility] b-gnlm 1-28 mg [...] dose, On Medica l tablet 1 Sat [place] tablet 04/07/22 at 1830, Routine diphenhydrA 2021-05- [...] 13 :00 Medical Branch rizatriptan 2021-05 Yes [id number] 10mg Take 1 [facility] 10 mg 1-12 tablet by ity of tablet 00:00: mouth as [place] 00 needed for Medical Migraine. Branch May repeat in 2 hours if needed Butalbital- 2021-05 Yes [id number] 1{capsu Take 1 [facility] Acetaminoph 1-12 le} [...] daily. Indication s: headache rizatriptan 2021-05 Yes [id number] 10mg Take 1 [facility] 10 mg 1-12 tablet by ity of tablet 00:00: mouth as [place] 00 needed for Medical Migraine. Branch May repeat in 2 hours if needed Butalbital- 2021-05 Yes [id number] 1{capsu Take 1 [facility] Acetaminoph 1-12 le} [...] daily. Indication s: headache rizatriptan 2021-05 Yes [id number] 10mg Take 1 [facility] 10 mg 1-12 tablet by ity of tablet 00:00: mouth as [place] 00 needed for Medical Migraine. Branch May repeat in 2 hours if needed Butalbital- 2021-05 Yes [id number] 1{capsu Take 1 [facility] Acetaminoph 1-12 le} [...] daily. Indication s: headache rizatriptan 2021-05 Yes [id number] 10mg Take 1 [facility] 10 mg 1-12 tablet by ity of tablet 00:00: mouth as [place] 00 needed for Medical Migraine. Branch May repeat in 2 hours if needed Butalbital- 2021-05 Yes [id number] 1{capsu Take 1 [facility] Acetaminoph 1-12 le} capsule by it y of en-Caff 00:00: mouth [place] (FIORICET) 00 every 6 Medica l 50-300-40 (six) Branch mg per hours as capsule needed for Other (headache) . rizatriptan 2021-05 Yes [id number] 10mg Take 1 [facility] 10 mg 1-12 tablet by ity of tablet 00:00: mouth as [place] 00 needed for Medical Migraine. Branch May repeat in 2 hours if needed Butalbital- 2021-05 Yes [id number] 1{capsu Take 1 [facility] Acetaminoph 1-12 le} capsule by it y of en-Caff 00:00: mouth [place] (FIORICET) 00 every 6 Medica l 50-300-40 (six) Branch mg per hours as capsule needed for Other (headache) . rizatriptan 2021-05 Yes [id number] 10mg Take 1 [facility] 10 mg 1-12 tablet by ity of tablet 00:00: mouth as [place] 00 needed for Medical Migraine. Branch May repeat in 2 hours if needed Butalbital- 2021-05 Yes [id number] 1{capsu Take 1 [facility] Acetaminoph 1-12 le} capsule by it y of en-Caff 00:00: mouth [place] (FIORICET) 00 every 6 Medica l 50-300-40 (six) Branch mg per hours as capsule needed for Other (headache) . rizatriptan 2021-05 Yes [id number] 10mg Take 1 [facility] 10 mg 1-12 tablet by ity of tablet 00:00: mouth as [place] 00 needed for Medical Migraine. Branch May repeat in 2 hours if needed Butalbital- 2021-05 Yes [id number] 1{capsu Take 1 [facility] Acetaminoph 1-12 le} capsule by it y of en-Caff 00:00: mouth [place] (FIORICET) 00 every 6 Medica l 50-300-40 (six) Branch mg per hours as capsule needed for Other (headache) . rizatriptan 2021-05 Yes [id number] 10mg Take 1 [facility] 10 mg 1-12 tablet by ity of tablet 00:00: mouth as [place] 00 needed for Medical Migraine. Branch May repeat in 2 hours if needed Butalbital- 2021-05 Yes [id number] 1{capsu Take 1 [facility] Acetaminoph 1-12 le} capsule by it y of en-Caff 00:00: mouth [place] (FIORICET) 00 every 6 Medica l 50-300-40 (six) Branch mg per hours as capsule needed for Other (headache) . rizatriptan 2021-05 Yes [id number] 10mg Take 1 [facility] 10 mg 1-12 tablet by ity of tablet 00:00: mouth as [place] 00 needed for Medical Migraine. Branch May repeat in 2 hours if needed Butalbital- 2021-05 Yes [id number] 1{capsu Take 1 [facility] Acetaminoph 1-12 le} capsule by it y of en-Caff 00:00: mouth [place] (FIORICET) 00 every 6 Medica l 50-300-40 (six) Branch mg per hours as capsule needed for Other (headache) . rizatriptan 2021-05 Yes [id number] 10mg Take 1 [facility] 10 mg 1-12 tablet by ity of tablet 00:00: mouth as [place] 00 needed for Medical Migraine. Branch May repeat in 2 hours if needed Butalbital- 2021-05 Yes [id number] 1{capsu Take 1 [facility] Acetaminoph 1-12 le} capsule by it y of en-Caff 00:00: mouth [place] (FIORICET) 00 every 6 Medica l 50-300-40 (six) Branch mg per hours as capsule needed for Other (headache) . rizatriptan 2021-05 Yes [id number] 10mg Take 1 [facility] 10 mg 1-12 tablet by ity of tablet 00:00: mouth as [place] 00 needed for Medical Migraine. Branch May repeat in 2 hours if needed Butalbital- 2021-05 Yes [id number] 1{capsu Take 1 [facility] Acetaminoph 1-12 le} capsule by it y of en-Caff 00:00: mouth [place] (FIORICET) 00 every 6 Medica l 50-300-40 (six) Branch mg per hours as capsule needed for Other (headache) . rizatriptan 2021-05 Yes [id number] 10mg Take 1 [facility] 10 mg 1-12 tablet by ity of tablet 00:00: mouth as [place] 00 needed for Medical Migraine. Branch May repeat in 2 hours if needed Butalbital- 2021-05 Yes [id number] 1{capsu Take 1 [facility] Acetaminoph 1-12 le} capsule by it y of en-Caff 00:00: mouth [place] (FIORICET) 00 every 6 Medica l 50-300-40 (six) Branch mg per hours as capsule needed for Other (headache) . rizatriptan 2021-05 Yes [id number] 10mg Take 1 [facility] 10 mg 1-12 tablet by ity of tablet 00:00: mouth as [place] 00 needed for Medical Migraine. Branch May repeat in 2 hours if needed Butalbital- 2021-05 Yes [id number] 1{capsu Take 1 [facility] Acetaminoph 1-12 le} capsule by it y of en-Caff 00:00: mouth [place] (FIORICET) 00 every 6 Medica l 50-300-40 (six) Branch mg per hours as capsule needed for Other (headache) . rizatriptan 2021-05 Yes [id number] 10mg Take 1 [facility] 10 mg 1-12 tablet by ity of tablet 00:00: mouth as [place] 00 needed for Medical Migraine. Branch May repeat in 2 hours if needed Butalbital- 2021-05 Yes [id number] 1{capsu Take 1 [facility] Acetaminoph 1-12 le} capsule by it y of en-Caff 00:00: mouth [place] (FIORICET) 00 every 6 Medica l 50-300-40 (six) Branch mg per hours as capsule needed for Other (headache) . rizatriptan 2021-05 Yes [id number] 10mg Take 1 [facility] 10 mg 1-12 tablet by ity of tablet 00:00: mouth as [place] 00 needed for Medical Migraine. Branch May repeat in 2 hours if needed Butalbital- 2021-05 Yes [id number] 1{capsu Take 1 [facility] Acetaminoph 1-12 le} capsule by it y of en-Caff 00:00: mouth [place] (FIORICET) 00 every 6 Medica l 50-300-40 (six) Branch mg per hours as capsule needed for Other (headache) . rizatriptan 2021-05 Yes [id number] 10mg Take 1 [facility] 10 mg 1-12 tablet by ity of tablet 00:00: mouth as [place] 00 needed for Medical Migraine. Branch May repeat in 2 hours if needed Butalbital- 2021-05 Yes [id number] 1{capsu Take 1 [facility] Acetaminoph 1-12 le} capsule by it y of en-Caff 00:00: mouth [place] (FIORICET) 00 every 6 Medica l 50-300-40 (six) Branch mg per hours as capsule needed for Other (headache) . rizatriptan 2021-05 Yes [id number] 10mg Take 1 [facility] 10 mg 1-12 tablet by ity of tablet 00:00: mouth as [place] 00 needed for Medical Migraine. Branch May repeat in 2 hours if needed Butalbital- 2021-05 Yes [id number] 1{capsu Take 1 [facility] Acetaminoph 1-12 le} capsule by it y of en-Caff 00:00: mouth [place] (FIORICET) 00 every 6 Medica l 50-300-40 (six) Branch mg per hours as capsule needed for Other (headache) . rizatriptan 2021-05 Yes [id number] 10mg Take 1 [facility] 10 mg 1-12 tablet by ity of tablet 00:00: mouth as [place] 00 needed for Medical Migraine. Branch May repeat in 2 hours if needed Butalbital- 2021-05 Yes [id number] 1{capsu Take 1 [facility] Acetaminoph 1-12 le} capsule by it y of en-Caff 00:00: mouth [place] (FIORICET) 00 every 6 Medica l 50-300-40 (six) Branch mg per hours as capsule needed for Other (headache) . rizatriptan 2021-05 Yes [id number] 10mg Take 1 [facility] 10 mg 1-12 tablet by ity of tablet 00:00: mouth as [place] 00 needed for Medical Migraine. Branch May repeat in 2 hours if needed Butalbital- 2021-05 Yes [id number] 1{capsu Take 1 [facility] Acetaminoph 1-12 le} capsule by it y of en-Caff 00:00: mouth [place] (FIORICET) 00 every 6 Medica l 50-300-40 (six) Branch mg per hours as capsule needed for Other (headache) . rizatriptan 2021-05 Yes [id number] 10mg Take 1 [facility] 10 mg 1-12 tablet by ity of tablet 00:00: mouth as [place] 00 needed for Medical Migraine. Branch May repeat in 2 hours if needed Butalbital- 2021-05 Yes [id number] 1{capsu Take 1 [facility] Acetaminoph 1-12 le} capsule by it y of en-Caff 00:00: mouth [place] (FIORICET) 00 every 6 Medica l 50-300-40 (six) Branch mg per hours as capsule needed for Other (headache) . rizatriptan 2021-05 Yes [id number] 10mg Take 1 [facility] 10 mg 1-12 tablet by ity of tablet 00:00: mouth as [place] 00 needed for Medical Migraine. Branch May repeat in 2 hours if needed Butalbital- 2021-05 Yes [id number] 1{capsu Take 1 [facility] Acetaminoph 1-12 le} capsule by it y of en-Caff 00:00: mouth [place] (FIORICET) 00 every 6 Medica l 50-300-40 (six) Branch mg per hours as capsule needed for Other (headache) . rizatriptan 2021-05 Yes [id number] 10mg Take 1 [facility] 10 mg 1-12 tablet by ity of tablet 00:00: mouth as [place] 00 needed for Medical Migraine. Branch May repeat in 2 hours if needed Butalbital- 2021-05 Yes [id number] 1{capsu Take 1 [facility] Acetaminoph 1-12 le} capsule by it y of en-Caff 00:00: mouth [place] (FIORICET) 00 every 6 Medica l 50-300-40 (six) Branch mg per hours as capsule needed for Other (headache) . rizatriptan 2021-05 Yes [id number] 10mg Take 1 [facility] 10 mg 1-12 tablet by ity of tablet 00:00: mouth as [place] 00 needed for Medical Migraine. Branch May repeat in 2 hours if needed Butalbital- 2021-05 Yes [id number] 1{capsu Take 1 [facility] Acetaminoph 1-12 le} capsule by it y of en-Caff 00:00: mouth [place] (FIORICET) 00 every 6 Medica l 50-300-40 (six) Branch mg per hours as capsule needed for Other (headache) . rizatriptan 2021-05 Yes [id number] 10mg Take 1 [facility] 10 mg 1-12 tablet by ity of tablet 00:00: mouth as [place] 00 needed for Medical Migraine. Branch May repeat in 2 hours if needed Butalbital- 2021-05 Yes [id number] 1{capsu Take 1 [facility] Acetaminoph 1-12 le} capsule by it y of en-Caff 00:00: mouth [place] (FIORICET) 00 every 6 Medica l 50-300-40 (six) Branch mg per hours as capsule needed for Other (headache) . rizatriptan 2021-05 Yes [id number] 10mg Take 1 [facility] 10 mg 1-12 tablet by ity of tablet 00:00: mouth as [place] 00 needed for Medical Migraine. Branch May repeat in 2 hours if needed Butalbital- 2021-05 Yes [id number] 1{capsu Take 1 [facility] Acetaminoph 1-12 le} capsule by it y of en-Caff 00:00: mouth [place] (FIORICET) 00 every 6 Medica l 50-300-40 (six) Branch mg per hours as capsule needed for Other (headache) . rizatriptan 2021-05 Yes [id number] 10mg Take 1 [facility] 10 mg 1-12 tablet by ity of tablet 00:00: mouth as [place] 00 needed for Medical Migraine. Branch May repeat in 2 hours if needed Butalbital- 2021-05 Yes [id number] 1{capsu Take 1 [facility] Acetaminoph 1-12 le} capsule by it y of en-Caff 00:00: mouth [place] (FIORICET) 00 every 6 Medica l 50-300-40 (six) Branch mg per hours as capsule needed for Other (headache) . rizatriptan 2021-05 Yes [id number] 10mg Take 1 [facility] 10 mg 1-12 tablet by ity of tablet 00:00: mouth as [place] 00 needed for Medical Migraine. Branch May repeat in 2 hours if needed Butalbital- 2021-05 Yes [id number] 1{capsu Take 1 [facility] Acetaminoph 1-12 le} capsule by it y of en-Caff 00:00: mouth [place] (FIORICET) 00 every 6 Medica l 50-300-40 (six) Branch mg per hours as capsule needed for Other (headache) . rizatriptan 2021-05 Yes [id number] 10mg Take 1 [facility] 10 mg 1-12 tablet by ity of tablet 00:00: mouth as [place] 00 needed for Medical Migraine. Branch May repeat in 2 hours if needed Butalbital- 2021-05 Yes [id number] 1{capsu Take 1 [facility] Acetaminoph 1-12 le} capsule by it y of en-Caff 00:00: mouth [place] (FIORICET) 00 every 6 Medica l 50-300-40 (six) Branch mg per hours as capsule needed for Other (headache) . rizatriptan 2021-05 Yes [id number] 10mg Take 1 [facility] 10 mg 1-12 tablet by ity of tablet 00:00: mouth as [place] 00 needed for Medical Migraine. Branch May repeat in 2 hours if needed Butalbital- 2021-05 Yes [id number] 1{capsu Take 1 [facility] Acetaminoph 1-12 le} capsule by it y of en-Caff 00:00: mouth [place] (FIORICET) 00 every 6 Medica l 50-300-40 (six) Branch mg per hours as capsule needed for Other (headache) . rizatriptan 2021-05 Yes [id number] 10mg Take 1 [facility] 10 mg 1-12 tablet by ity of tablet 00:00: mouth as [place] 00 needed for Medical Migraine. Branch May repeat in 2 hours if needed Butalbital- 2021-05 Yes [id number] 1{capsu Take 1 [facility] Acetaminoph 1-12 le} capsule by it y of en-Caff 00:00: mouth [place] (FIORICET) 00 every 6 Medica l 50-300-40 (six) Branch mg per hours as capsule needed for Other (headache) . rizatriptan 2021-05 Yes [id number] 10mg Take 1 [facility] 10 mg 1-12 tablet by ity of tablet 00:00: mouth as [place] 00 needed for Medical Migraine. Branch May repeat in 2 hours if needed Butalbital- 2021-05 Yes [id number] 1{capsu Take 1 [facility] Acetaminoph 1-12 le} capsule by it y of en-Caff 00:00: mouth [place] (FIORICET) 00 every 6 Medica l 50-300-40 (six) Branch mg per hours as capsule needed for Other (headache) . rizatriptan 2021-05 Yes [id number] 10mg Take 1 [facility] 10 mg 1-12 tablet by ity of tablet 00:00: mouth as [place] 00 needed for Medical Migraine. Branch May repeat in 2 hours if needed Butalbital- 2021-05 Yes [id number] 1{capsu Take 1 [facility] Acetaminoph 1-12 le} capsule by it y of en-Caff 00:00: mouth [place] (FIORICET) 00 every 6 Medica l 50-300-40 (six) Branch mg per hours as capsule needed for Other (headache) . rizatriptan 2021-05 Yes [id number] 10mg Take 1 [facility] 10 mg 1-12 tablet by ity of tablet 00:00: mouth as [place] 00 needed for Medical Migraine. Branch May repeat in 2 hours if needed Butalbital- 2021-05 Yes [id number] 1{capsu Take 1 [facility] Acetaminoph 1-12 le} capsule by it y of en-Caff 00:00: mouth [place] (FIORICET) 00 every 6 Medica l 50-300-40 (six) Branch mg per hours as capsule needed for Other (headache) . rizatriptan 2021-05 Yes [id number] 10mg Take 1 [facility] 10 mg 1-12 tablet by ity of tablet 00:00: mouth as [place] 00 needed for Medical Migraine. Branch May repeat in 2 hours if needed Butalbital- 2021-05 Yes [id number] 1{capsu Take 1 [facility] Acetaminoph 1-12 le} capsule by it y of en-Caff 00:00: mouth [place] (FIORICET) 00 every 6 Medica l 50-300-40 (six) Branch mg per hours as capsule needed for Other (headache) . rizatriptan 2021-05 Yes [id number] 10mg Take 1 [facility] 10 mg 1-12 tablet by ity of tablet 00:00: mouth as [place] 00 needed for Medical Migraine. Branch May repeat in 2 hours if needed Butalbital- 2021-05 Yes [id number] 1{capsu Take 1 [facility] Acetaminoph 1-12 le} capsule by it y of en-Caff 00:00: mouth [place] (FIORICET) 00 every 6 Medica l 50-300-40 (six) Branch mg per hours as capsule needed for Other (headache) . rizatriptan 2021-05 Yes [id number] 10mg Take 1 [facility] 10 mg 1-12 tablet by ity of tablet 00:00: mouth as [place] 00 needed for Medical Migraine. Branch May repeat in 2 hours if needed Butalbital- 2021-05 Yes [id number] 1{capsu Take 1 [facility] Acetaminoph 1-12 le} capsule by it y of en-Caff 00:00: mouth [place] (FIORICET) 00 every 6 Medica l 50-300-40 (six) Branch mg per hours as capsule needed for Other (headache) . rizatriptan 2021-05 Yes [id number] 10mg Take 1 [facility] 10 mg 1-12 tablet by ity of tablet 00:00: mouth as [place] 00 needed for Medical Migraine. Branch May repeat in 2 hours if needed Butalbital- 2021-05 Yes [id number] 1{capsu Take 1 [facility] Acetaminoph 1-12 le} capsule by it y of en-Caff 00:00: mouth [place] (FIORICET) 00 every 6 Medica l 50-300-40 (six) Branch mg per hours as capsule needed for Other (headache) . rizatriptan 2021-05 Yes [id number] 10mg Take 1 [facility] 10 mg 1-12 tablet by ity of tablet 00:00: mouth as [place] 00 needed for Medical Migraine. Branch May repeat in 2 hours if needed Butalbital- 2021-05 Yes [id number] 1{capsu Take 1 [facility] Acetaminoph 1-12 le} capsule by it y of en-Caff 00:00: mouth [place] (FIORICET) 00 every 6 Medica l 50-300-40 (six) Branch mg per hours as capsule needed for Other (headache) . rizatriptan 2021-05 Yes [id number] 10mg Take 1 [facility] 10 mg 1-12 tablet by ity of tablet 00:00: mouth as [place] 00 needed for Medical Migraine. Branch May repeat in 2 hours if needed Butalbital- 2021-05 Yes [id number] 1{capsu Take 1 [facility] Acetaminoph 1-12 le} [...] Medical 50 mcg dose, On [facility] 03/15/22 at 1030, Routine proMETHazin 2021-05 No 25mg 25 mg, Uni vers e 05-15 Oral, ity of (PHENERGAN) 14:45: 14:55 [place]CE, 1 [place] 25 00 :00 dose, On Medica l mg [facility] 03/15/22 at 0945, [place] FENTanyl PF 2021-05 No 50ug 50 mcg, Un sushant (SUBLIMAZE 05-15 Slow IV ity o f (PF)) 14:45: 13:58 Push, [place] injection 00 :00 ONCE, 1 Medical 50 mcg dose, On [facility] 03/15/22 at 0945, Routine ondansetron 2021-05 No 4mg 4 mg, Slow [facility] (ZOFRAN 05-15 IV Push, ity of (PF)) 14:00: 13:58 ONCE, 1 [place] injection 4 00 :00 dose, On Medi yessi mg [facility] 03/15/22 at 0900, [place] ondansetron 2021-05 Yes [id number] 4mg Take 1 [facility] 4 mg 05-15 tablet by ity of disintegrat 00:00: mouth [place] ing tablet 00 every 8 Medica l (eight) [place] hours as needed for Nausea and Vomiting (N/V). ketorolac 2021-05 Yes [id number] 10mg Take 1 U nivers 10 mg 1-03 tablet by ity of tablet 00:00: mouth [place] 00 every 6 Medical (six) Branch hours as needed for Pain (scale 7-10). proMETHazin 2021-05 Yes [id number] 25mg Take 1 Univers e 25 mg 1-03 tablet by ity of tablet 00:00: mouth [place] 00 every 6 Medical (six) Branch hours as needed for N/V unresponsi ve to Ondansetro n. ondansetron 2021-05 Yes [id number] 4mg Take 1 [facility] 4 mg 1-03 tablet by ity of disintegrat 00:00: mouth [place] ing tablet 00 every 8 Medica l (eight) Branch hours as needed for Nausea and Vomiting (N/V). ketorolac 2021-05 Yes [id number] 10mg Take 1 U nivers 10 mg 1-03 tablet by ity of tablet 00:00: mouth [place] 00 every 6 Medical (six) Branch hours as needed for Pain (scale 7-10). proMETHazin 2021-05 Yes [id number] 25mg Take 1 Univers e 25 mg 1-03 tablet by ity of tablet 00:00: mouth [place] 00 every 6 Medical (six) Branch hours as needed for N/V unresponsi ve to Ondansetro n. carvediloL 2021-05 Yes [id number] 25mg Take 1 U nivers 25 mg 1-03 tablet by ity of tablet 00:00: mouth in [place] 00 the Medical morning Branch and 1 tablet in the evening. Take with meals. ondansetron 2021-05 Yes [id number] 4mg Take 1 [facility] 4 mg 1-03 tablet by ity of disintegrat 00:00: mouth [place] ing tablet 00 every 8 Medica l (eight) Branch hours as needed for Nausea and Vomiting (N/V). ketorolac 2021-05 Yes [id number] 10mg Take 1 U nivers 10 mg 1-03 tablet by ity of tablet 00:00: mouth [place] 00 every 6 Medical (six) Branch hours as needed for Pain (scale 7-10). proMETHazin 2021-05 Yes [id number] 25mg Take 1 Univers e 25 mg 1-03 tablet by ity of tablet 00:00: mouth [place] 00 every 6 Medical (six) Branch hours as needed for N/V unresponsi ve to Ondansetro n. carvediloL 2021-05 Yes [id number] 25mg Take 1 U nivers 25 mg 1-03 tablet by ity of tablet 00:00: mouth in [place] 00 the Medical morning Branch and 1 tablet in the evening. Take with meals. ondansetron 2021-05 Yes [id number] 4mg Take 1 [facility] 4 mg 1-03 tablet by ity of disintegrat 00:00: mouth [place] ing tablet 00 every 8 Medica l (eight) Branch hours as needed for Nausea and Vomiting (N/V). ketorolac 2021-05 Yes [id number] 10mg Take 1 U nivers 10 mg 1-03 tablet by ity of tablet 00:00: mouth [place] 00 every 6 Medical (six) Branch hours as needed for Pain (scale 7-10). proMETHazin 2021-05 Yes [id number] 25mg Take 1 Univers e 25 mg 1-03 tablet by ity of tablet 00:00: mouth [place] 00 every 6 Medical (six) Branch hours as needed for N/V unresponsi ve to Ondansetro n. carvediloL 2021-05 Yes [id number] 25mg Take 1 U nivers 25 mg 1-03 tablet by ity of tablet 00:00: mouth in [place] 00 the Medical morning Branch and 1 tablet in the evening. Take with meals. ondansetron 2021-05 Yes [id number] 4mg Take 1 [facility] 4 mg 1-03 tablet by ity of disintegrat 00:00: mouth [place] ing tablet 00 every 8 Medica l (eight) Branch hours as needed for Nausea and Vomiting (N/V). ketorolac 2021-05 Yes [id number] 10mg Take 1 U nivers 10 mg 1-03 tablet by ity of tablet 00:00: mouth [place] 00 every 6 Medical (six) Branch hours as needed for Pain (scale 7-10). proMETHazin 2021-05 Yes [id number] 25mg Take 1 Univers e 25 mg 1-03 tablet by ity of tablet 00:00: mouth [place] 00 every 6 Medical (six) Branch hours as needed for N/V unresponsi ve to Ondansetro n. carvediloL 2021-05 Yes [id number] 25mg Take 1 U nivers 25 mg 1-03 tablet by ity of tablet 00:00: mouth in [place] 00 the Medical morning Branch and 1 tablet in the evening. Take with meals. ondansetron 2021-05 Yes [id number] 4mg Take 1 [facility] 4 mg 1-03 tablet by ity of disintegrat 00:00: mouth [place] ing tablet 00 every 8 Medica l (eight) Branch hours as needed for Nausea and Vomiting (N/V). ketorolac 2021-05 Yes [id number] 10mg Take 1 U nivers 10 mg 1-03 tablet by ity of tablet 00:00: mouth [place] 00 every 6 Medical (six) Branch hours as needed for Pain (scale 7-10). proMETHazin 2021-05 Yes [id number] 25mg Take 1 Univers e 25 mg 1-03 tablet by ity of tablet 00:00: mouth [place] 00 every 6 Medical (six) Branch hours as needed for N/V unresponsi ve to Ondansetro n. carvediloL 2021-05 Yes [id number] 25mg Take 1 U nivers 25 mg 1-03 tablet by ity of tablet 00:00: mouth in [place] 00 the Medical morning Branch and 1 tablet in the evening. Take with meals. ondansetron 2021-05 Yes [id number] 4mg Take 1 [facility] 4 mg 1-03 tablet by ity of disintegrat 00:00: mouth [place] ing tablet 00 every 8 Medica l (eight) Branch hours as needed for Nausea and Vomiting (N/V). ketorolac 2021-05 Yes [id number] 10mg Take 1 U nivers 10 mg 1-03 tablet by ity of tablet 00:00: mouth [place] 00 every 6 Medical (six) Branch hours as needed for Pain (scale 7-10). proMETHazin 2021-05 Yes [id number] 25mg Take 1 Univers e 25 mg 1-03 tablet by ity of tablet 00:00: mouth [place] 00 every 6 Medical (six) Branch hours as needed for N/V unresponsi ve to Ondansetro n. carvediloL 2021-05 Yes [id number] 25mg Take 1 U nivers 25 mg 1-03 tablet by ity of tablet 00:00: mouth in [place] 00 the Medical morning Branch and 1 tablet in the evening. Take with meals. ondansetron 2021-05 Yes [id number] 4mg Take 1 [facility] 4 mg 1-03 tablet by ity of disintegrat 00:00: mouth [place] ing tablet 00 every 8 Medica l (eight) Branch hours as needed for Nausea and Vomiting (N/V). ketorolac 2021-05 Yes [id number] 10mg Take 1 U nivers 10 mg 1-03 tablet by ity of tablet 00:00: mouth [place] 00 every 6 Medical (six) Branch hours as needed for Pain (scale 7-10). proMETHazin 2021-05 Yes [id number] 25mg Take 1 Univers e 25 mg 1-03 tablet by ity of tablet 00:00: mouth [place] 00 every 6 Medical (six) Branch hours as needed for N/V unresponsi ve to Ondansetro n. carvediloL 2021-05 Yes [id number] 25mg Take 1 U nivers 25 mg 1-03 tablet by ity of tablet 00:00: mouth in [place] 00 the Medical morning Branch and 1 tablet in the evening. Take with meals. ondansetron 2021-05 Yes [id number] 4mg Take 1 [facility] 4 mg 1-03 tablet by ity of disintegrat 00:00: mouth [place] ing tablet 00 every 8 Medica l (eight) Branch hours as needed for Nausea and Vomiting (N/V). ketorolac 2021-05 Yes [id number] 10mg Take 1 U nivers 10 mg 1-03 tablet by ity of tablet 00:00: mouth [place] 00 every 6 Medical (six) Branch hours as needed for Pain (scale 7-10). proMETHazin 2021-05 Yes [id number] 25mg Take 1 [facility] 25 mg 1-03 tablet by [facility] of tablet 00:00: mouth [place] 00 every 6 Medical (six) Branch hours as needed for N/V unresponsi ve to Ondansetro n. carvediloL 2021-05 Yes [id number] 25mg Take 1 [facility] 25 mg 1-03 tablet by [facility] of tablet 00:00: mouth in [place] 00 the Medical morning Branch and 1 tablet in the evening. Take with meals. ondansetron 2021-05 Yes [id number] 4mg Take 1 [facility] 4 mg 1-03 tablet by it[facility] of disintegrat 00:00: mouth [place] ing tablet 00 every 8 Medica l (eight) Branch hours as needed for Nausea and Vomiting (N/V). ketorolac 2021-05 Yes [id number] 10mg Take 1 [facility] 10 mg 1-03 tablet by it[facility] of tablet 00:00: mouth [place] 00 every 6 Medical (six) Branch hours as needed for Pain (scale 7-10). proMETHazin 2021-05 Yes [id number] 25mg Take 1 [facility] 25 mg 1-03 tablet by it[facility] of tablet 00:00: mouth [place] 00 every 6 Medical (six) Branch hours as needed for N/V unresponsi ve to Ondansetro n. carvediloL 2021-05 Yes [id number] 25mg Take 1 [facility] 25 mg 1-03 tablet by it[facility] of tablet 00:00: mouth in [place] [address] the Medical morning Branch and 1 tablet in the evening. Take with meals. carvediloL 2021-05 Yes [id number] 25mg Take 1 [facility] 25 mg 1-03 tablet by it[facility] of tablet 00:00: mouth in [place] [address] the Medical morning Branch and 1 tablet in the evening. Take with meals. carvediloL 2021-05 Yes [id number] 25mg Take 1 [facility] 25 mg 1-03 tablet by it[facility] of tablet 00:00: mouth in [place] [address] the Medical morning Branch and 1 tablet in the evening. Take with meals. carvediloL 2021-05 Yes [id number] 25mg Take 1 [facility] 25 mg 1-03 tablet by it[facility] of tablet 00:00: mouth in [place] 00 the Medical morning Branch and 1 tablet in the evening. Take with meals. carvediloL 2021-05 Yes [id number] 25mg Take 1 [facility] 25 mg 1-03 tablet by it[facility] of tablet 00:00: mouth in [place] [address] the Medical morning Branch and 1 tablet in the evening. Take with meals. carvediloL 2021-05 Yes [id number] 25mg Take 1 [facility] 25 mg 1-03 tablet by it[facility] of tablet 00:00: mouth in [place] [address] the [facility] morning [place] and 1 tablet in the evening. Take with meals. carvediloL 2021-05 Yes [id number] 25mg Take 1 [facility] 25 mg 1-03 tablet by ity of tablet 00:00: mouth in [place] [address] the Medical morning [place] and 1 tablet in the evening. Take with meals. carvediloL 2021-05 Yes [id number] 25mg Take 1 [facility] 25 mg 1-03 tablet by ity of tablet 00:00: mouth in [place] [address] the Medical morning [place] and 1 tablet in the evening. Take with meals. carvediloL 2021-05 Yes [id number] 25mg Take 1 [facility] 25 mg 1-03 tablet by it[facility] of tablet 00:00: mouth in [place] [address] the Medical morning [place] and 1 tablet in the evening. Take with meals. carvediloL 2021-05 Yes [id number] 25mg Take 1 [facility] 25 mg 1-03 tablet by it[facility] of tablet 00:00: mouth in [place] [address] the Medical morning [place] and 1 tablet in the evening. Take with meals. carvediloL 2021-05 Yes [id number] 25mg Take 1 [facility] 25 mg 1-03 tablet by it[facility] of tablet 00:00: mouth in [place] [address] the Medical morning [place] and 1 tablet in the evening. Take with meals. carvediloL 2021-05 Yes [id number] 25mg Take 1 [facility] 25 mg 1-03 tablet by it[facility] of tablet 00:00: mouth in [place] [address] the [facility] morning [place] and 1 tablet in the evening. Take with meals. carvediloL 2021-05 Yes [id number] 25mg Take 1 [facility] 25 mg 1-03 tablet by ity of tablet 00:00: mouth in [place] [address] the Medical morning [place] and 1 tablet in the evening. Take with meals. carvediloL 2021-05 Yes [id number] 25mg Take 1 [facility] 25 mg 1-03 tablet by ity of tablet 00:00: mouth in [address] morning [place] and 1 tablet in the evening. Take with meals. carvediloL 2021-05 Yes [id number] 25mg Take 1 [facility] 25 mg 1-03 tablet by it[facility] of tablet 00:00: mouth in [address] morning [place] and 1 tablet in the evening. Take with meals. carvediloL 2021-05 Yes [id number] 25mg Take 1 [facility] 25 mg 1-03 tablet by ity of tablet 00:00: mouth in [address] morning [place] and 1 tablet in the evening. Take with meals. carvediloL 2021-05 Yes [id number] 25mg Take 1 [facility] 25 mg 1-03 tablet by ity of tablet 00:00: mouth in [place] [address] the [facility] morning [place] and 1 tablet in the evening. Take with meals. carvediloL 2021-05 Yes [id number] 25mg Take 1 [facility] 25 mg 1-03 tablet by ity of tablet 00:00: mouth in [place] [address] the [facility] and 1 tablet in the evening. Take with meals. carvediloL 2021-05 Yes [id number] 25mg Take 1 [facility] 25 mg 1-03 tablet by ity of tablet 00:00: mouth in [place] [address] the [facility] and 1 tablet in the evening. Take with meals. carvediloL 2021-05 Yes [id number] 25mg Take 1 [facility] 25 mg 1-03 tablet by ity of tablet 00:00: mouth in [place] [address] the [facility] and 1 tablet in the evening. Take with meals. carvediloL 2021-05 Yes [id number] 25mg Take 1 [facility] 25 mg 1-03 tablet by ity of tablet 00:00: mouth in [address] and 1 tablet in the evening. Take with meals. carvediloL 2021-05 Yes [id number] 25mg Take 1 [facility] 25 mg 1-03 tablet by ity of tablet 00:00: mouth in [place] [address] the [facility] and 1 tablet in the evening. Take with meals. carvediloL 2021-05- No [id number] 25mg Take 1 [facility] 25 mg 1-03 04-26 tablet by ity of tablet 00:00: 00:00 mouth in [place] 00 :00 the [facility] and 1 tablet in the evening. Take with meals. carvediloL 2021-05- No [id number] 25mg Take 1 [facility] 25 mg 1-03 04-26 tablet by ity of tablet 00:00: 00:00 mouth in [place] 00 :00 the [facility] and 1 tablet in the evening. Take with meals. ondansetron 2021-05- No [id number] 4mg Take 1 [facility] 4 mg 1-03 11-26 tablet by ity of disintegrat 00:00: 00:00 [place] 00 :00 every 8 Medica l (eight) Branch hours as needed for Nausea and Vomiting (N/V). ketorolac 2021-05- No [id number] 10mg Take 1 [facility] 10 mg 05-15 tablet by ity of tablet 00:00: 00:00 mouth [place] 00 :00 every 6 Medical (six) Branch hours as needed for Pain (scale 7-10). proMETHazin 2021-05- No [id number] 25mg Take 1 [facility] e 25 mg 05-15 tablet by ity of tablet 00:00: 00:00 mouth [place] 00 :00 every 6 Medical (six) Branch hours as needed for N/V unresponsi ve to Ondansetro n. cephALEXin 2021-05- No [id number] 500mg Take 1 [facility] 500 mg 05-15 capsule by ity of capsule 00:00: 05:59 mouth 4 [place] 00 :00 (four) Medical times Branch daily for 3 days. cephALEXin 2021-05- No [id number] 500mg Take 1 [facility] 500 mg 05-15 capsule by ity of capsule 00:00: 05:59 mouth 4 [place] 00 :00 (four) Medical times Branch daily for 3 days. cephALEXin 2021-05- No [id number] 500mg Take 1 [facility] 500 mg 05-15 capsule by ity of capsule 00:00: 05:59 mouth 4 [place] 00 :00 (four) Medical times Branch daily for 3 days. predniSONE 2021-05- No [id number] 20mg Take 1 [facility] 20 mg 003-15 [...] piggyback at 0945, [place] proMETHazin 2021-05 Yes [id number] 25mg Take 1 [facility] e 25 mg 0-30 tablet by ity of tablet 00:00: mouth [place] 00 every 6 Medical (six) Branch hours as needed for Nausea and Vomiting (N/V). methocarbam 2021-05 Yes [id number] 500mg Take 1 [facility] oL 500 mg 0-30 tablet by ity o f tablet 00:00: mouth 3 (three) Medical times Branch daily as needed for Pain (scale 7-10). proMETHazin 2021-05 Yes [id number] 25mg Take 1 [facility] 25 mg 0-30 tablet by ity of tablet 00:00: mouth [place] 00 every 6 Medical (six) Branch hours as needed for Nausea and Vomiting (N/V). methocarbam 2021-05 Yes [id number] 500mg Take 1 [facility] oL 500 mg 0-30 tablet by ity o f tablet 00:00: mouth 3 (three) Medical times Branch daily as needed for Pain (scale 7-10). proMETHazin 2021-05 Yes [id number] 25mg Take 1 [facility] e 25 mg 0-30 tablet by ity of tablet 00:00: mouth [place] 00 every 6 Medical (six) Branch hours as needed for Nausea and Vomiting (N/V). methocarbam 2021-05 Yes [id number] 500mg Take 1 [facility] oL 500 mg 0-30 tablet by ity o f tablet 00:00: mouth (three) Medical times Branch daily as needed for Pain (scale 7-10). proMETHazin 2021-05 Yes [id number] 25mg Take 1 [facility] 25 mg 0-30 tablet by ity of tablet 00:00: mouth [place] 00 every 6 Medical (six) Branch hours as needed for Nausea and Vomiting (N/V). methocarbam 2021-05 Yes [id number] 500mg Take 1 [facility] oL 500 mg 0-30 tablet by ity o f tablet 00:00: mouth (three) Medical times Branch daily as needed for Pain (scale 7-10). proMETHazin 2021-05 Yes [id number] 25mg Take 1 [facility] 25 mg 0-30 tablet by ity of tablet 00:00: mouth [place] 00 every 6 Medical (six) Branch hours as needed for Nausea and Vomiting (N/V). methocarbam 2021-05 Yes [id number] 500mg Take 1 [facility] oL 500 mg 0-30 tablet by ity o f tablet 00:00: mouth 3 (three) Medical times Branch daily as needed for Pain (scale 7-10). proMETHazin 2021-05 Yes [id number] 25mg Take 1 [facility] e 25 mg 0-30 tablet by ity of tablet 00:00: mouth [place] 00 every 6 Medical (six) Branch hours as needed for Nausea and Vomiting (N/V). methocarbam 2021-05 Yes [id number] 500mg Take 1 [facility] oL 500 mg 0-30 tablet by ity o f tablet 00:00: mouth 3 [place] 00 (three) Medical times Branch daily as needed for Pain (scale 7-10). proMETHazin 2021-05 Yes [id number] 25mg Take 1 [facility] e 25 mg 0-30 tablet by ity of tablet 00:00: mouth [place] 00 every 6 Medical (six) Branch hours as needed for Nausea and Vomiting (N/V). methocarbam 2021-05 Yes [id number] 500mg Take 1 [facility] oL 500 mg 0-30 tablet by ity o f tablet 00:00: mouth 3 [place] 00 (three) Medical times Branch daily as needed for Pain (scale 7-10). proMETHazin 2021-05 Yes [id number] 25mg Take 1 [facility] e 25 mg 0-30 tablet by ity of tablet 00:00: mouth [place] 00 every 6 Medical (six) Branch hours as needed for Nausea and Vomiting (N/V). methocarbam 2021-05 Yes [id number] 500mg Take 1 [facility] oL 500 mg 0-30 tablet by ity o f tablet 00:00: mouth 3 00 (three) Medical times Branch daily as needed for Pain (scale 7-10). proMETHazin 2021-05 Yes [id number] 25mg Take 1 [facility] e 25 mg 0-30 tablet by ity of tablet 00:00: mouth [place] 00 every 6 Medical (six) Branch hours as needed for Nausea and Vomiting (N/V). methocarbam 2021-05 Yes [id number] 500mg Take 1 [facility] oL 500 mg 0-30 tablet by ity o f tablet 00:00: mouth 3 [place] 00 (three) Medical times Branch daily as needed for Pain (scale 7-10). proMETHazin 2021-05 Yes [id number] 25mg Take 1 [facility] e 25 mg 0-30 tablet by ity of tablet 00:00: mouth [place] 00 every 6 Medical (six) Branch hours as needed for Nausea and Vomiting (N/V). methocarbam 2021-05 Yes [id number] 500mg Take 1 [facility] oL 500 mg 0-30 tablet by ity o f tablet 00:00: mouth 3 [place] 00 (three) Medical times Branch daily as needed for Pain (scale 7-10). proMETHazin 2021-05 Yes [id number] 25mg Take 1 [facility] e 25 mg 0-30 tablet by ity of tablet 00:00: mouth [place] 00 every 6 Medical (six) Branch hours as needed for Nausea and Vomiting (N/V). methocarbam 2021-05 Yes [id number] 500mg Take 1 [facility] oL 500 mg 0-30 tablet by ity o f tablet 00:00: mouth 3 [place] 00 (three) Medical times Branch daily as needed for Pain (scale 7-10). proMETHazin 2021-05 Yes [id number] 25mg Take 1 [facility] e 25 mg 0-30 tablet by ity of tablet 00:00: mouth [place] 00 every 6 Medical (six) Branch hours as needed for Nausea and Vomiting (N/V). proMETHazin 2021-05 Yes [id number] 25mg Take 1 [facility] e 25 mg 0-30 tablet by ity of tablet 00:00: mouth [place] 00 every 6 Medical (six) Branch hours as needed for Nausea and Vomiting (N/V). proMETHazin 2021-05 Yes [id number] 25mg Take 1 [facility] e 25 mg 0-30 tablet by ity of tablet 00:00: mouth [place] 00 every 6 Medical (six) Branch hours as needed for Nausea and Vomiting (N/V). proMETHazin 2021-05 Yes [id number] 25mg Take 1 [facility] e 25 mg 0-30 tablet by ity of tablet 00:00: mouth [place] 00 every 6 Medical (six) Branch hours as needed for Nausea and Vomiting (N/V). proMETHazin 2021-05 Yes [id number] 25mg Take 1 [facility] e 25 mg 0-30 tablet by ity of tablet 00:00: mouth [place] 00 every 6 Medical (six) Branch hours as needed for Nausea and Vomiting (N/V). proMETHazin 2021-05 Yes [id number] 25mg Take 1 [facility] e 25 mg 0-30 tablet by ity of tablet 00:00: mouth [place] 00 every 6 Medical (six) Branch hours as needed for Nausea and Vomiting (N/V). proMETHazin 2021-05 Yes [id number] 25mg Take 1 [facility] e 25 mg 0-30 tablet by ity of tablet 00:00: mouth [place] 00 every 6 Medical (six) Branch hours as needed for Nausea and Vomiting (N/V). proMETHazin 2021-05 Yes [id number] 25mg Take 1 [facility] e 25 mg 0-30 tablet by ity of tablet 00:00: mouth [place] 00 every 6 Medical (six) Branch hours as needed for Nausea and Vomiting (N/V). proMETHazin 2021-05 Yes [id number] 25mg Take 1 [facility] e 25 mg 0-30 tablet by ity of tablet 00:00: mouth [place] 00 every 6 Medical (six) Branch hours as needed for Nausea and Vomiting (N/V). proMETHazin 2021-05 Yes [id number] 25mg Take 1 [facility] e 25 mg 0-30 tablet by ity of tablet 00:00: mouth [place] 00 every 6 Medical (six) Branch hours as needed for Nausea and Vomiting (N/V). proMETHazin 2021-05 Yes [id number] 25mg Take 1 [facility] e 25 mg 0-30 tablet by ity of tablet 00:00: mouth [place] 00 every 6 Medical (six) Branch hours as needed for Nausea and Vomiting (N/V). proMETHazin 2021-05 Yes [id number] 25mg Take 1 [facility] e 25 mg 0-30 tablet by ity of tablet 00:00: mouth [place] 00 every 6 Medical (six) Branch hours as needed for Nausea and Vomiting (N/V). proMETHazin 2021-05 Yes [id number] 25mg Take 1 [facility] e 25 mg 0-30 tablet by ity of tablet 00:00: mouth [place] 00 every 6 Medical (six) Branch hours as needed for Nausea and Vomiting (N/V). proMETHazin 2021-05 Yes [id number] 25mg Take 1 [facility] e 25 mg 0-30 tablet by ity of tablet 00:00: mouth [place] 00 every 6 Medical (six) Branch hours as needed for Nausea and Vomiting (N/V). proMETHazin 2021-05 Yes [id number] 25mg Take 1 [facility] e 25 mg 0-30 tablet by ity of tablet 00:00: mouth [place] 00 every 6 Medical (six) Branch hours as needed for Nausea and Vomiting (N/V). proMETHazin 2021-05 Yes [id number] 25mg Take 1 [facility] e 25 mg 0-30 tablet by ity of tablet 00:00: mouth [place] 00 every 6 Medical (six) Branch hours as needed for Nausea and Vomiting (N/V). proMETHazin 2021-05 Yes [id number] 25mg Take 1 [facility] e 25 mg 0-30 tablet by ity of tablet 00:00: mouth [place] 00 every 6 Medical (six) Branch hours as needed for Nausea and Vomiting (N/V). proMETHazin 2021-05- No [id number] 25mg Take 1 [facility] e 25 mg 0-30 03-21 tablet by ity of tablet 00:00: 00:00 mouth [place] 00 :00 every 6 Medical (six) Branch hours as needed for Nausea and Vomiting (N/V). methocarbam 2021-05 No [id number] 500mg Take 1 [facility] oL 500 mg 0-30 11-26 tablet by ity of tablet 00:00: 00:00 mouth 3 [place] 00 :00 (three) Medical times Branch daily as needed for Pain (scale 7-10). topiramate 2021-05 Yes [id number] 100mg Take 4 [facility] 25 mg 0-21 tablets by ity of tablet 00:00: mouth in [place] 00 the Medical morning. [place] topiramate 2021-05 Yes [id number] 100mg Take 4 [facility] 25 mg 0-21 tablets by ity of tablet 00:00: mouth in [place] 00 the Medical morning. [place] topiramate 2021-05 Yes [id number] 100mg Take 4 [facility] 25 mg 0-21 tablets by ity of tablet 00:00: mouth in [place] 00 the Medical morning. [place] topiramate 2021-05 Yes [id number] 100mg Take 4 [facility] 25 mg 0-21 tablets by ity of tablet 00:00: mouth in [place] 00 the Medical morning. [place] topiramate 2021-05 Yes [id number] 100mg Take 4 [facility] 25 mg 0-21 tablets by ity of tablet 00:00: mouth in [place] 00 the Medical morning. [place] topiramate 2021-05 Yes [id number] 100mg Take 4 [facility] 25 mg 0-21 tablets by ity of tablet 00:00: mouth in [place] 00 the Medical morning. [place] topiramate 2021-05 Yes [id number] 100mg Take 4 [facility] 25 mg 0-21 tablets by ity of tablet 00:00: mouth in [place] 00 the Medical morning. Branch topiramate 2021-1 Yes [id number] 100mg Take 4 [facility] 25 mg 0-21 tablets by ity of tablet 00:00: mouth in [place] the Medical morning. Branch topiramate 2-1 Yes [id number] 100mg Take 4 [facility] 25 mg 0-21 tablets by ity of tablet 00:00: mouth in [place] the Medical morning. Branch topiramate 2-1 Yes [id number] 100mg Take 4 [facility] 25 mg 0-21 tablets by ity of tablet 00:00: mouth in [place] the Medical morning. Branch topiramate 2-1 Yes [id number] 100mg Take 4 [facility] 25 mg 0-21 tablets by ity of tablet 00:00: mouth in [place] the Medical morning. Branch topiramate 2-1 Yes [id number] 100mg Take 4 [facility] 25 mg 0-21 tablets by ity of tablet 00:00: mouth in [place] the Medical morning. Branch topiramate 2021-1 Yes [id number] 100mg Take 4 [facility] 25 mg 0-21 tablets by ity of tablet 00:00: mouth in [place] the Medical morning. Branch topiramate 2021-1 Yes [id number] 100mg Take 4 [facility] 25 mg 0-21 tablets by ity of tablet 00:00: mouth in [place] the Medical morning. Branch topiramate 2-1 Yes [id number] 100mg Take 4 [facility] 25 mg 0-21 tablets by ity of tablet 00:00: mouth in [place] the Medical morning. Branch topiramate 2-1 Yes [id number] 100mg Take 4 [facility] 25 mg 0-21 tablets by ity of tablet 00:00: mouth in [place] the Medical morning. Branch topiramate 2-1 Yes [id number] 100mg Take 4 [facility] 25 mg 0-21 tablets by ity of tablet 00:00: mouth in [place] the Medical morning. Branch topiramate 2022-1 Yes [id number] 100mg Take 4 [facility] 25 mg 0-21 tablets by ity of tablet 00:00: mouth in [place] 00 the Medical morning. Branch topiramate 2022-1 Yes [id number] 100mg Take 4 [facility] 25 mg 0-21 tablets by ity of tablet 00:00: mouth in [place] 00 the Medical morning. Branch topiramate 2022-1 Yes [id number] 100mg Take 4 [facility] 25 mg 0-21 tablets by ity of tablet 00:00: mouth in [place] 00 the Medical morning. Branch topiramate 2-1 Yes [id number] 100mg Take 4 [facility] 25 mg 0-21 tablets by ity of tablet 00:00: mouth in [place] the Medical morning. Branch topiramate 2021-1 Yes [id number] 100mg Take 4 [facility] 25 mg 0-21 tablets by ity of tablet 00:00: mouth in [place] the Medical morning. Branch topiramate 2021-1 Yes [id number] 100mg Take 4 [facility] 25 mg 0-21 tablets by ity of tablet 00:00: mouth in [place] the Medical morning. Branch topiramate 2021- Yes [id number] 100mg Take 4 [facility] 25 mg 0-21 tablets by ity of tablet 00:00: mouth in [place] the Medical morning. Branch topiramate 2021- Yes [id number] 100mg Take 4 [facility] 25 mg 0-21 tablets by ity of tablet 00:00: mouth in [place] the Medical morning. Branch topiramate 2021- Yes [id number] 100mg Take 4 [facility] 25 mg 0-21 tablets by ity of tablet 00:00: mouth in [place] the Medical morning. Branch topiramate 2021- Yes [id number] 100mg Take 4 [facility] 25 mg 0-21 tablets by ity of tablet 00:00: mouth in [place] the Medical morning. Branch topiramate 2021- Yes [id number] 100mg Take 4 [facility] 25 mg 0-21 tablets by ity of tablet 00:00: mouth in [place] the Medical morning. Branch topiramate 2-1 Yes [id number] 100mg Take 4 [facility] 25 mg 0-21 tablets by ity of tablet 00:00: mouth in [place] 00 the Medical morning. Branch topiramate 2-1 Yes [id number] 100mg Take 4 [facility] 25 mg 0-21 tablets by ity of tablet 00:00: mouth in [place] 00 the Medical morning. Branch topiramate 2-1 Yes [id number] 100mg Take 4 [facility] 25 mg 0-21 tablets by ity of tablet 00:00: mouth in [place] 00 the Medical morning. Branch topiramate 2021-1 Yes [id number] 100mg Take 4 [facility] 25 mg 0-21 tablets by ity of tablet 00:00: mouth in [place] 00 the Medical morning. Branch topiramate 2021-1 Yes [id number] 100mg Take 4 [facility] 25 mg 0-21 tablets by ity of tablet 00:00: mouth in [place] the Medical morning. Branch topiramate 2-1 Yes [id number] 100mg Take 4 [facility] 25 mg 0-21 tablets by ity of tablet 00:00: mouth in [place] the Medical morning. Branch topiramate 2-1 Yes [id number] 100mg Take 4 [facility] 25 mg 0-21 tablets by ity of tablet 00:00: mouth in [place] the Medical morning. Branch topiramate 2-1 Yes [id number] 100mg Take 4 [facility] 25 mg 0-21 tablets by ity of tablet 00:00: mouth in [place] the Medical morning. Branch topiramate 2-1 Yes [id number] 100mg Take 4 [facility] 25 mg 0-21 tablets by ity of tablet 00:00: mouth in [place] the Medical morning. Branch topiramate 2021-1 Yes [id number] 100mg Take 4 [facility] 25 mg 0-21 tablets by ity of tablet 00:00: mouth in [place] the Medical morning. Branch topiramate 2021-1 Yes [id number] 100mg Take 4 [facility] 25 mg 0-21 tablets by ity of tablet 00:00: mouth in [place] the Medical morning. Branch topiramate 2-1 Yes [id number] 100mg Take 4 [facility] 25 mg 0-21 tablets by ity of tablet 00:00: mouth in [place] the Medical morning. Branch topiramate 2-1 Yes [id number] 100mg Take 4 [facility] 25 mg 0-21 tablets by ity of tablet 00:00: mouth in [place] the Medical morning. Branch topiramate 2-1 Yes [id number] 100mg Take 4 [facility] 25 mg 0-21 tablets by ity of tablet 00:00: mouth in [place] the Medical morning. Branch topiramate 2022-1 Yes [id number] 100mg Take 4 [facility] 25 mg 0-21 tablets by ity of tablet 00:00: mouth in [place] 00 the Medical morning. Branch topiramate 2022-1 Yes [id number] 100mg Take 4 [facility] 25 mg 0-21 tablets by ity of tablet 00:00: mouth in [place] 00 the Medical morning. Branch topiramate 2022-1 Yes [id number] 100mg Take 4 [facility] 25 mg 0-21 tablets by ity of tablet 00:00: mouth in [place] 00 the Medical morning. Branch topiramate 2021-05 Yes [id number] 100mg Take 4 [facility] 25 mg 0-21 tablets by ity of tablet 00:00: mouth in [place] 00 the Medical morning. Branch topiramate 2021-05 Yes [id number] 100mg Take 4 [facility] 25 mg 0-21 tablets by ity of tablet 00:00: mouth in [place] 00 the Medical morning. Branch topiramate 2021-05 Yes [id number] 100mg Take 4 [facility] 25 mg 0-21 tablets by ity of tablet 00:00: mouth in [place] 00 the Medical morning. Branch diphenhydrA 2021-05- No 25mg Take 25 mg [facility] MINE 25 mg 0-18 10-18 by mouth ity of capsule 09:39: 00:00 every 6 [place] 59 :00 (six) Medical hours as Branch needed for Allergies. diphenhydrA 2021-05- No 25mg Take 25 mg [facility] MINE 25 mg 0-18 10-18 by mouth ity of capsule 09:39: 00:00 every 6 [place] 59 :00 (six) Medical hours as Branch needed for Allergies. diphenhydrA 2021-05 No 25mg Take 25 mg [facility] MINE 25 mg 0-18 10-18 by mouth ity of capsule 09:39: 00:00 every 6 [place] 59 :00 (six) Medical hours as Branch needed for Allergies. diphenhydrA 2021-05- No 25mg Take 25 mg [facility] MINE 25 mg 0-18 10-18 by mouth ity of capsule 09:39: 00:00 every 6 [place] 59 :00 (six) Medical hours as Branch needed for Allergies. diphenhydrA 2021-05- No 25mg Take 25 mg [facility] MINE 25 mg 0-18 10-18 by mouth ity of capsule 09:39: 00:00 every 6 [place] 59 :00 (six) Medical hours as Branch needed for Allergies. citalopram 2021-05- No Take by Uni vers hydrobromid 0-18 10-18 mouth. ity o f e 09:39: 00:00 [place] (CITALOPRAM 49 :00 Medical ORAL) Branch citalopram [...] 28 :00 Medical Branch albuterol 2021-05 Yes [id number] 2{puff} Inhale 2 [facility] 90 0-18 Puffs ity of mcg/actuati 00:00: every 6 [place] as on inhaler 00 (six) Medical hours as Branch needed for Wheezing or Shortness of Breath. albuterol 2021-05 Yes [id number] 2{puff} Inhale 2 [facility] 90 0-18 Puffs ity of mcg/actuati 00:00: every 6 [place] as on inhaler 00 (six) Medical hours as Branch needed for Wheezing or Shortness of Breath. albuterol 2021-05 Yes [id number] 2{puff} Inhale 2 [facility] 90 0-18 Puffs ity of mcg/actuati 00:00: every 6 [place] as on inhaler 00 (six) Medical hours as Branch needed for Wheezing or Shortness of Breath. albuterol 2021-05 Yes [id number] 2{puff} Inhale 2 [facility] 90 0-18 Puffs ity of mcg/actuati 00:00: every 6 [place] on inhaler 00 (six) Medical hours as Branch needed for Wheezing or Shortness of Breath. albuterol 2021-05 Yes [id number] 2{puff} Inhale 2 [facility] 90 0-18 Puffs ity of mcg/actuati 00:00: every 6 [place] as on inhaler 00 (six) Medical hours as Branch needed for Wheezing or Shortness of Breath. albuterol 2021-05 Yes [id number] 2{puff} Inhale 2 [facility] 90 0-18 Puffs ity of mcg/actuati 00:00: every 6 [place] as on inhaler 00 (six) Medical hours as Branch needed for Wheezing or Shortness of Breath. albuterol 2021-05 Yes [id number] 2{puff} Inhale 2 [facility] 90 0-18 Puffs ity of mcg/actuati 00:00: every 6 [place] as on inhaler 00 (six) Medical hours as Branch needed for Wheezing or Shortness of Breath. albuterol 2021-05 Yes [id number] 2{puff} Inhale 2 [facility] 90 0-18 Puffs ity of mcg/actuati 00:00: every 6 [place] as on inhaler 00 (six) Medical hours as Branch needed for Wheezing or Shortness of Breath. albuterol 2021-05 Yes [id number] 2{puff} Inhale 2 [facility] 90 0-18 Puffs ity of mcg/actuati 00:00: every 6 [place] on inhaler 00 (six) Medical hours as Branch needed for Wheezing or Shortness of Breath. albuterol 2021-05 Yes [id number] 2{puff} Inhale 2 [facility] 90 0-18 Puffs ity of mcg/actuati 00:00: every 6 [place] on inhaler 00 (six) Medical hours as Branch needed for Wheezing or Shortness of Breath. albuterol 2021-05 Yes [id number] 2{puff} Inhale 2 [facility] 90 0-18 Puffs ity of mcg/actuati 00:00: every 6 [place] on inhaler 00 (six) Medical hours as Branch needed for Wheezing or Shortness of Breath. albuterol 2021-05 Yes [id number] 2{puff} Inhale 2 [facility] 90 0-18 Puffs ity of mcg/actuati 00:00: every 6 [place] on inhaler 00 (six) Medical hours as Branch needed for Wheezing or Shortness of Breath. albuterol 2021-05 Yes [id number] 2{puff} Inhale 2 [facility] 90 0-18 Puffs ity of mcg/actuati 00:00: every 6 [place] on inhaler 00 (six) Medical hours as Branch needed for Wheezing or Shortness of Breath. albuterol 2021-05 Yes [id number] 2{puff} Inhale 2 [facility] 90 0-18 Puffs ity of mcg/actuati 00:00: every 6 [place] on inhaler 00 (six) Medical hours as Branch needed for Wheezing or Shortness of Breath. albuterol 2021-05 Yes [id number] 2{puff} Inhale 2 [facility] 90 0-18 Puffs ity of mcg/actuati 00:00: every 6 [place] on inhaler 00 (six) Medical hours as Branch needed for Wheezing or Shortness of Breath. albuterol 2021-05 Yes [id number] 2{puff} Inhale 2 [facility] 90 0-18 Puffs ity of mcg/actuati 00:00: every 6 [place] on inhaler 00 (six) Medical hours as Branch needed for Wheezing or Shortness of Breath. albuterol 2021-05 Yes [id number] 2{puff} Inhale 2 [facility] 90 0-18 Puffs ity of mcg/actuati 00:00: every 6 [place] on inhaler 00 (six) Medical hours as Branch needed for Wheezing or Shortness of Breath. albuterol 2021-05 Yes [id number] 2{puff} Inhale 2 [facility] 90 0-18 Puffs ity of mcg/actuati 00:00: every 6 [place] on inhaler 00 (six) Medical hours as Branch needed for Wheezing or Shortness of Breath. albuterol 2021-05 Yes [id number] 2{puff} Inhale 2 [facility] 90 0-18 Puffs ity of mcg/actuati 00:00: every 6 [place] on inhaler 00 (six) Medical hours as Branch needed for Wheezing or Shortness of Breath. albuterol 2021-05 Yes [id number] 2{puff} Inhale 2 [facility] 90 0-18 Puffs ity of mcg/actuati 00:00: every 6 [place] on inhaler 00 (six) Medical hours as Branch needed for Wheezing or Shortness of Breath. albuterol 2021-05 Yes [id number] 2{puff} Inhale 2 [facility] 90 0-18 Puffs ity of mcg/actuati 00:00: every 6 [place] on inhaler 00 (six) Medical hours as Branch needed for Wheezing or Shortness of Breath. albuterol 2021-05 Yes [id number] 2{puff} Inhale 2 [facility] 90 0-18 Puffs ity of mcg/actuati 00:00: every 6 [place] on inhaler 00 (six) Medical hours as Branch needed for Wheezing or Shortness of Breath. albuterol 2021-05 Yes [id number] 2{puff} Inhale 2 [facility] 90 0-18 Puffs ity of mcg/actuati 00:00: every 6 [place] on inhaler 00 (six) Medical hours as Branch needed for Wheezing or Shortness of Breath. albuterol 2021-05 Yes [id number] 2{puff} Inhale 2 [facility] 90 0-18 Puffs ity of mcg/actuati 00:00: every 6 [place] on inhaler 00 (six) Medical hours as Branch needed for Wheezing or Shortness of Breath. albuterol 2021-05 Yes [id number] 2{puff} Inhale 2 [facility] 90 0-18 Puffs ity of mcg/actuati 00:00: every 6 [place] on inhaler 00 (six) Medical hours as Branch needed for Wheezing or Shortness of Breath. albuterol 2021-05 Yes [id number] 2{puff} Inhale 2 [facility] 90 0-18 Puffs ity of mcg/actuati 00:00: every 6 [place] on inhaler 00 (six) Medical hours as Branch needed for Wheezing or Shortness of Breath. albuterol 2021-05 Yes [id number] 2{puff} Inhale 2 [facility] 90 0-18 Puffs ity of mcg/actuati 00:00: every 6 [place] on inhaler 00 (six) Medical hours as Branch needed for Wheezing or Shortness of Breath. albuterol 2021-05 Yes [id number] 2{puff} Inhale 2 [facility] 90 0-18 Puffs ity of mcg/actuati 00:00: every 6 [place] on inhaler 00 (six) Medical hours as Branch needed for Wheezing or Shortness of Breath. albuterol 2021-05 Yes [id number] 2{puff} Inhale 2 [facility] 90 0-18 Puffs ity of mcg/actuati 00:00: every 6 [place] on inhaler 00 (six) Medical hours as Branch needed for Wheezing or Shortness of Breath. albuterol 2021-05 Yes [id number] 2{puff} Inhale 2 [facility] 90 0-18 Puffs ity of mcg/actuati 00:00: every 6 [place] on inhaler 00 (six) Medical hours as Branch needed for Wheezing or Shortness of Breath. albuterol 2021-05 Yes [id number] 2{puff} Inhale 2 [facility] 90 0-18 Puffs ity of mcg/actuati 00:00: every 6 [place] on inhaler 00 (six) Medical hours as Branch needed for Wheezing or Shortness of Breath. albuterol 2021-05 Yes [id number] 2{puff} Inhale 2 [facility] 90 0-18 Puffs ity of mcg/actuati 00:00: every 6 [place] on inhaler 00 (six) Medical hours as Branch needed for Wheezing or Shortness of Breath. albuterol 2021-05 Yes [id number] 2{puff} Inhale 2 [facility] 90 0-18 Puffs ity of mcg/actuati 00:00: every 6 [place] on inhaler 00 (six) Medical hours as Branch needed for Wheezing or Shortness of Breath. albuterol 2021-05 Yes [id number] 2{puff} Inhale 2 [facility] 90 0-18 Puffs ity of mcg/actuati 00:00: every 6 [place] on inhaler 00 (six) Medical hours as Branch needed for Wheezing or Shortness of Breath. albuterol 2021-05 Yes [id number] 2{puff} Inhale 2 [facility] 90 0-18 Puffs ity of mcg/actuati 00:00: every 6 [place] on inhaler 00 (six) Medical hours as Branch needed for Wheezing or Shortness of Breath. albuterol 2021-05 Yes [id number] 2{puff} Inhale 2 [facility] 90 0-18 Puffs ity of mcg/actuati 00:00: every 6 [place] on inhaler 00 (six) Medical hours as Branch needed for Wheezing or Shortness of Breath. albuterol 2021-05 Yes [id number] 2{puff} Inhale 2 [facility] 90 0-18 Puffs ity of mcg/actuati 00:00: every 6 [place] on inhaler 00 (six) Medical hours as Branch needed for Wheezing or Shortness of Breath. albuterol 2021-05 Yes [id number] 2{puff} Inhale 2 [facility] 90 0-18 Puffs ity of mcg/actuati 00:00: every 6 [place] on inhaler 00 (six) Medical hours as Branch needed for Wheezing or Shortness of Breath. albuterol 2021-05 Yes [id number] 2{puff} Inhale 2 [facility] 90 0-18 Puffs ity of mcg/actuati 00:00: every 6 [place] on inhaler 00 (six) Medical hours as Branch needed for Wheezing or Shortness of Breath. albuterol 2021-05 Yes [id number] 2{puff} Inhale 2 [facility] 90 0-18 Puffs ity of mcg/actuati 00:00: every 6 [place] on inhaler 00 (six) Medical hours as Branch needed for Wheezing or Shortness of Breath. albuterol 2021-05 Yes [id number] 2{puff} Inhale 2 [facility] 90 0-18 Puffs ity of mcg/actuati 00:00: every 6 [place] on inhaler 00 (six) Medical hours as Branch needed for Wheezing or Shortness of Breath. albuterol 2021-05 Yes [id number] 2{puff} Inhale 2 [facility] 90 0-18 Puffs ity of mcg/actuati 00:00: every 6 [place] on inhaler 00 (six) Medical hours as Branch needed for Wheezing or Shortness of Breath. albuterol 2021-05 Yes [id number] 2{puff} Inhale 2 [facility] 90 0-18 Puffs ity of mcg/actuati 00:00: every 6 [place] on inhaler 00 (six) Medical hours as Branch needed for Wheezing or Shortness of Breath. albuterol 2021-05 Yes [id number] 2{puff} Inhale 2 [facility] 90 0-18 Puffs ity of mcg/actuati 00:00: every 6 [place] on inhaler 00 (six) Medical hours as Branch needed for Wheezing or Shortness of Breath. albuterol 2021-05 Yes [id number] 2{puff} Inhale 2 [facility] 90 0-18 Puffs ity of mcg/actuati 00:00: every 6 [place] on inhaler 00 (six) Medical hours as Branch needed for Wheezing or Shortness of Breath. albuterol 2021-05 Yes [id number] 2{puff} Inhale 2 [facility] 90 0-18 Puffs ity of mcg/actuati 00:00: every 6 [place] on inhaler 00 (six) Medical hours as Branch needed for Wheezing or Shortness of Breath. albuterol 2021-05 Yes [id number] 2{puff} Inhale 2 [facility] 90 0-18 Puffs ity of mcg/actuati 00:00: every 6 [place] on inhaler 00 (six) Medical hours as Branch needed for Wheezing or Shortness of Breath. albuterol 2021-05 Yes [id number] 2{puff} Inhale 2 [facility] 90 0-18 Puffs ity of mcg/actuati 00:00: every 6 [place] on inhaler 00 (six) Medical hours as Branch needed for Wheezing or Shortness of Breath. albuterol 2021-05 Yes [id number] 2{puff} Inhale 2 [facility] 90 0-18 Puffs ity of mcg/actuati 00:00: every 6 [place] on inhaler 00 (six) Medical hours as Branch needed for Wheezing or Shortness of Breath. albuterol 2021-05 Yes [id number] 2{puff} Inhale 2 [facility] 90 0-18 Puffs ity of mcg/actuati 00:00: every 6 [place] on inhaler 00 (six) Medical hours as Branch needed for Wheezing or Shortness of Breath. albuterol 2021-05 Yes [id number] 2{puff} Inhale 2 [facility] 90 0-18 Puffs ity of mcg/actuati 00:00: every 6 [place] on inhaler 00 (six) Medical hours as Branch needed for Wheezing or Shortness of Breath. albuterol 2021-05 Yes [id number] 2{puff} Inhale 2 [facility] 90 0-18 Puffs ity of mcg/actuati 00:00: every 6 [place] on inhaler 00 (six) Medical hours as Branch needed for Wheezing or Shortness of Breath. albuterol 2021-05 Yes [id number] 2{puff} Inhale 2 [facility] 90 0-18 Puffs ity of mcg/actuati 00:00: every 6 [place] as on inhaler 00 (six) Medical hours as Branch needed for Wheezing or Shortness of Breath. albuterol 2021-05 Yes [id number] 2{puff} Inhale 2 [facility] 90 0-18 Puffs [...] a 24 hour period. benzonatate 2021-05- No [id number] 200mg Take 1 [facility] 200 mg 0-18 10-26 capsule by ity of capsule 00:00: 04:59 mouth 3 [place] 00 :00 (three) Medical times Branch daily as needed for Cough for up to 7 days. benzonatate 2021-05- No [id number] 200mg Take 1 [facility] 200 mg 0-18 10-26 capsule by ity of capsule 00:00: 04:59 mouth 3 [place] 00 :00 (three) Medical times Branch daily as needed for Cough for up to 7 days. benzonatate 2021-05- No [id number] 200mg Take 1 [facility] 200 mg 0-18 10-26 capsule by ity of capsule 00:00: 04:59 mouth 3 [place] 00 :00 (three) Medical times Branch daily as needed for Cough for up to 7 days. benzonatate 2021-05- No [id number] 200mg Take 1 [facility] 200 mg 0-18 10-26 capsule by ity of capsule 00:00: 04:59 mouth 3 [place] 00 :00 (three) Medical times Branch daily as needed for Cough for up to 7 days. benzonatate 2021-05 No [id number] 200mg Take 1 [facility] 200 mg 003-07 capsule by ity of capsule 00:00: 04:59 mouth 3 [place] 00 :00 (three) Medical times [place] daily as needed for Cough for up to 7 days. benzonatate 2021-05 No [id number] 200mg Take 1 [facility] 200 mg 003-07 capsule by ity of capsule 00:00: 04:59 mouth 3 [place] 00 :00 (three) Medical times [place] daily as needed for Cough for up to 7 days. SUMAtriptan 2021-05- No [id number] 50mg Take 1 [facility] 50 mg 002-28 9105 tablet by ity of tablet 00:00: 04:59 mouth [place] 00 :00 now for 1 Medical dose. [place] SUMAtriptan 2021-05 No [id number] 50mg Take 1 [facility] 50 mg 02-28 [...] IV ity of (BENADRYL) 06:30: 06:38 [place], [place] injection 00 :00 ONCE, 1 Medical 25 mg dose, On Branch Sat02/21/22 at 0130, STAT FENTanyl PF 2021-05 No 50ug 50 mcg, Un sushant (SUBLIMAZE 002-18 Slow IV ity o f (PF)) 20:30: 19:44 [place], [place] injection 00 :00 ONCE, 1 Medical 50 mcg dose, On Branch 02/18/22 at 1530, Routine ketorolac 2021-05- No 30mg 30 mg, Unive rs (TORADOL) 0- Slow IV ity of injection 20:15: 20:09 [place], [place] 30 mg 00 :00 ONCE, 1 Medical dose, On Branch 02/18/22 at 1515, [place] iopamidol 2021-05- No [id number] 60mL 60 mL, Un sushant (ISOVUE 0- Intravenou ity o f 370-500 mL) 19:30: 17:30 s, ONCE, 1 [place] injection 00 :00 dose, On Medica l 60 mL [facility] 02/18/22 at 1430, Routine proMETHazin 2021-05 No 12.5mg 12.5 mg, Univers e 02-18 IV ity of (PHENERGAN) 18:15: 18:19 [place]gy[place], [place] 12.5 mg in 00 :00 ONCE, 1 Medica l NaCl 0.9% dose, On Branch (NS) 50 mL [place] IV 02/18/22 at piggyback 1315, [place] FENTanyl PF 2021-05 No 50ug 50 mcg, Un sushant (SUBLIMAZE 02-18 Slow IV ity o f (PF)) 18:00: 17:26 [place], [place] injection 00 :00 ONCE, 1 Medical 50 mcg dose, On Branch [place] 02/18/22 at 1300, Routine ondansetron 2021-05 No 4mg 4 mg, Slow Univers (ZOFRAN 02-18 IV [place], ity of (PF)) 17:15: 17:27 ONCE, 1 [place] injection 4 00 :00 dose, On Medi yessi mg [facility] 02/18/22 at 1215, [place] morpHINE (2 [...] 00 :00 dose, On Medi yessi mg [facility] 01/18/22 Branch at 0830, [place] morpHINE [...] Branch at 0630, [place] iodixanoL 2021- No [id number] 80mL 80 mL, U nivers (VISIPAQUE 01-18 Intravenou it y of 270-150 mL) 11:21: 11:15 s, ONCE, 1 [place] injection 00 :00 dose, On Medica l 80 mL [facility] 01/18/22 Branch at 0630, Routine NaCl [...] Indication s: acute pain ondansetron 2022-0 Yes [id number] 4mg Take 1 [facility] 4 mg 9-08 [id number] tablet by ity of disintegrat 00:00: mouth [place] ing tablet 00 every 8 Medica l (eight) Branch hours as needed for Nausea and Vomiting (N/V). ibuprofen 2021-0 Yes [id number] 600mg Take 1 [facility] 600 mg 9-08 [id number] tablet by ity of tablet 00:00: mouth [place] 00 every 6 Medical (six) Branch hours as needed for Pain (scale 4-6). traMADoL 50 2021-0 Yes [id number] 50mg Take 1 Univ ers mg tablet 9-08 tablet by ity o f 00:00: mouth [place] 00 every 6 Medical (six) Branch hours as needed for Pain (scale 7-10). Indication s: acute pain ondansetron 2021-0 Yes [id number] 4mg Take 1 [facility] 4 mg 9-08 [id number] tablet by ity of disintegrat 00:00: mouth [place] ing tablet 00 every 8 Medica l (eight) Branch hours as needed for Nausea and Vomiting (N/V). ibuprofen 2021-0 Yes [id number] 600mg Take 1 [facility] 600 mg 9-08 [id number] tablet by ity of tablet 00:00: mouth [place] 00 every 6 Medical (six) Branch hours as needed for Pain (scale 4-6). traMADoL 50 2021-0 Yes [id number] 50mg Take 1 Univ ers mg tablet 9-08 tablet by ity o f 00:00: mouth [place] 00 every 6 Medical (six) Branch hours as needed for Pain (scale 7-10). Indication s: acute pain ondansetron 2021-0 Yes [id number] 4mg Take 1 [facility] 4 mg 9-08 [id number] tablet by ity of disintegrat 00:00: mouth [place] ing tablet 00 every 8 Medica l (eight) Branch hours as needed for Nausea and Vomiting (N/V). ibuprofen 2021-0 Yes [id number] 600mg Take 1 [facility] 600 mg 9-08 [id number] tablet by ity of tablet 00:00: mouth [place] 00 every 6 Medical (six) Branch hours as needed for Pain (scale 4-6). traMADoL 50 2021-0 Yes [id number] 50mg Take 1 Univ ers mg tablet 9-08 tablet by ity o f 00:00: mouth [place] 00 every 6 Medical (six) Branch hours as needed for Pain (scale 7-10). Indication s: acute pain ondansetron 2022-0 Yes [id number] 4mg Take 1 [facility] 4 mg 9-08 [id number] tablet by ity of disintegrat 00:00: mouth [place] ing tablet 00 every 8 Medica l (eight) Branch hours as needed for Nausea and Vomiting (N/V). ibuprofen 2022-0 Yes [id number] 600mg Take 1 [facility] 600 mg 9-08 [id number] tablet by ity of tablet 00:00: mouth [place] 00 every 6 Medical (six) Branch hours as needed for Pain (scale 4-6). traMADoL 50 2022-0 Yes [id number] 50mg Take 1 Univ ers mg tablet 9-08 tablet by ity o f 00:00: mouth [place] 00 every 6 Medical (six) Branch hours as needed for Pain (scale 7-10). Indication s: acute pain ondansetron 2022-0 Yes [id number] 4mg Take 1 [facility] 4 mg 9-08 [id number] tablet by ity of disintegrat 00:00: mouth [place] ing tablet 00 every 8 Medica l (eight) Branch hours as needed for Nausea and Vomiting (N/V). ibuprofen 2022-0 Yes [id number] 600mg Take 1 [facility] 600 mg 9-08 [id number] tablet by ity of tablet 00:00: mouth [place] 00 every 6 Medical (six) Branch hours as needed for Pain (scale 4-6). traMADoL 50 2022-0 Yes [id number] 50mg Take 1 Univ ers mg tablet 9-08 tablet by ity o f 00:00: mouth [place] 00 every 6 Medical (six) Branch hours as needed for Pain (scale 7-10). Indication s: acute pain ondansetron 2022-0 Yes [id number] 4mg Take 1 [facility] 4 mg 9-08 [id number] tablet by ity of disintegrat 00:00: mouth [place] ing tablet 00 every 8 Medica l (eight) Branch hours as needed for Nausea and Vomiting (N/V). ibuprofen 2022-0 Yes [id number] 600mg Take 1 [facility] 600 mg 9-08 [id number] tablet by ity of tablet 00:00: mouth [place] 00 every 6 Medical (six) Branch hours as needed for Pain (scale 4-6). traMADoL 50 2022-0 Yes [id number] 50mg Take 1 Univ ers mg tablet 9-08 tablet by ity o f 00:00: mouth [place] 00 every 6 Medical (six) Branch hours as needed for Pain (scale 7-10). Indication s: acute pain ondansetron 2021-0 Yes [id number] 4mg Take 1 Univers 4 mg - [id number] tablet by ity of disintegrat 00:00: mouth [place] ing tablet 00 every 8 Medica l (eight) Branch hours as needed for Nausea and Vomiting (N/V). ibuprofen 2021-0 Yes [id number] 600mg Take 1 [facility] 600 mg 9- [id number] tablet by ity of tablet 00:00: mouth [place] 00 every 6 Medical (six) Branch hours as needed for Pain (scale 4-6). traMADoL 50 2021-0 Yes [id number] 50mg Take 1 Univ ers mg tablet 9-08 tablet by ity o f 00:00: mouth [place] 00 every 6 Medical (six) Branch hours as needed for Pain (scale 7-10). Indication s: acute pain ondansetron 2021-0 Yes [id number] 4mg Take 1 [facility] 4 mg - [id number] tablet by ity of disintegrat 00:00: mouth [place] ing tablet 00 every 8 Medica l (eight) Branch hours as needed for Nausea and Vomiting (N/V). ibuprofen 2021-0 Yes [id number] 600mg Take 1 [facility] 600 mg - [id number] tablet by ity of tablet 00:00: mouth [...] s: acute pain ondansetron 2021-0 202- No [id number] 4mg Take 1 [facility] 4 mg -02-27 [id number] tablet by ity of disintegrat 00:00: 00:00 mouth [place] ing tablet 00 :00 every 8 Medica l (eight) Branch hours as needed for Nausea and Vomiting (N/V). ibuprofen 2021-0 2021- No [id number] 600mg Take 1 [facility] 600 mg 9-08 10-18 [id number] tablet by ity o f tablet 00:00: [...] Indication s: acute pain ondansetron 2021-2021- No [id number] 4mg Take 1 [facility] 4 mg 01-18 [id number] tablet by ity of disintegrat 00:00: 00:00 mouth [place] ing tablet 00 :00 every 8 Medica l (eight) Branch hours as needed for Nausea and Vomiting (N/V). ibuprofen 2021-2021- No [id number] 600mg Take 1 [facility] 600 mg 01-18 [id number] tablet by ity o f tablet 00:00: [...] Indication s: acute pain ondansetron 2021-2021- No [id number] 4mg Take 1 [facility] 4 mg 01-18 [id number] tablet by ity of disintegrat 00:00: 00:00 mouth [place] ing tablet 00 :00 every 8 Medica l (eight) Branch hours as needed for Nausea and Vomiting (N/V). ibuprofen 2021-2021- No [id number] 600mg Take 1 [facility] 600 mg 01-18 [id number] tablet by ity o f tablet 00:00: [...] Indication s: acute pain ondansetron 2021- No [id number] 4mg Take 1 [facility] 4 mg 01-18 [id number] tablet by ity of disintegrat 00:00: 00:00 mouth [place] ing tablet 00 :00 every 8 Medica l (eight) Branch hours as needed for Nausea and Vomiting (N/V). ibuprofen 2021- No [id number] 600mg Take 1 [facility] 600 mg 01-18 [id number] tablet by ity o f tablet 00:00: 00:00 mouth [place] 00 :00 every 6 Medical (six) Branch hours as needed for Pain (scale 4-6). predniSONE 2021- No [id number] 40mg Take 2 [facility] 20 mg 01-16 tablets by ity of tablet 00:00: 04:59 mouth in [place] 00 :00 the Medical morning Branch for 7 days. predniSONE 2021- No [id number] 40mg Take 2 [facility] 20 mg 01-16 tablets by ity of tablet 00:00: 04:59 mouth in [place] 00 :00 the Medical morning Branch for [...] at 0915, 1 mL proMETHazin 2021-0 Yes [id number] 25mg Take 1 Univers e 25 mg 9-05 tablet by ity of tablet 00:00: mouth [place] 00 every 6 Medical (six) Branch hours as needed for Nausea and Vomiting (N/V). proMETHazin 2021-0 Yes [id number] 25mg Take 1 Univers e 25 mg 9-05 tablet by ity of tablet 00:00: mouth [place] 00 every 6 Medical (six) Branch hours as needed for Nausea and Vomiting (N/V). proMETHazin 2021-0 Yes [id number] 25mg Take 1 Univers e 25 mg 9-05 tablet by ity of tablet 00:00: mouth [place] 00 every 6 Medical (six) Branch hours as needed for Nausea and Vomiting (N/V). proMETHazin 2022-0 Yes [id number] 25mg Take 1 Univers e 25 mg 9-05 tablet by ity of tablet 00:00: mouth [place] 00 every 6 Medical (six) Branch hours as needed for Nausea and Vomiting (N/V). proMETHazin 2-0 Yes [id number] 25mg Take 1 Univers e 25 mg 9-05 tablet by ity of tablet 00:00: mouth [place] 00 every 6 Medical (six) Branch hours as needed for Nausea and Vomiting (N/V). proMETHazin 0 Yes [id number] 25mg Take 1 Univers e 25 mg 9-05 tablet by ity of tablet 00:00: mouth [place] 00 every 6 Medical (six) Branch hours as needed for Nausea and Vomiting (N/V). proMETHazin 0 Yes [id number] 25mg Take 1 Univers e 25 mg 9-05 tablet by ity of tablet 00:00: mouth [place] 00 every 6 Medical (six) Branch hours as needed for Nausea and Vomiting (N/V). proMETHazin 0 Yes [id number] 25mg Take 1 Univers e 25 mg 9-05 tablet by ity of tablet 00:00: mouth [place] 00 every 6 Medical (six) Branch hours as needed for Nausea and Vomiting (N/V). proMETHazin 0 Yes [id number] 25mg Take 1 Univers e 25 mg 9-05 tablet by ity of tablet 00:00: mouth [place] 00 every 6 Medical (six) Branch hours as needed for Nausea and Vomiting (N/V). proMETHazin 2021- No [id number] 25mg Take 1 Univers e 25 mg 9-05 10-18 tablet by ity of tablet 00:00: 00:00 mouth [place] 00 :00 every 6 Medical (six) Branch hours as needed for Nausea and Vomiting (N/V). proMETHazin 0 2021- No [id number] 25mg Take 1 Univers e 25 mg 9-05 10-18 tablet by ity of tablet 00:00: 00:00 mouth [place] 00 :00 every 6 Medical (six) Branch hours as needed for Nausea and Vomiting (N/V). proMETHazin 0 2021- No [id number] 25mg Take 1 Univers e 25 mg 9-05 10-18 tablet by ity of tablet 00:00: 00:00 mouth [place] 00 :00 every 6 Medical (six) Branch hours as needed for Nausea and Vomiting (N/V). proMETHazin 2021-0 2021- No [id number] 25mg Take 1 Univers e 25 mg [...] IV ity of (BENADRYL) 23:45: 23:51 Push, [place] injection 00 :00 ONCE, 1 Medical 25 mg dose, On Branch [facility] 01/08/22 at 1845, STAT dexamethaso 2021- No 10mg 10 mg, Uni vers ne sod phos 01-08 Slow IV ity of PF 23:45: 23:50 Push, [place] injection 00 :00 ONCE, 1 Medical 10 mg dose, On Branch [facility] 01/08/22 at 1845, 1 mL ketorolac 2021- No 30mg 30 mg, Unive rs (TORADOL) 01-08 Slow IV ity of injection 23:45: 23:51 Push, [place] 30 mg 00 :00 ONCE, 1 Medical dose, On Branch [facility] 01/08/22 at 1845, [place] ondansetron Yes [id number] 4mg Take 1 Univers 4 mg 8-29 tablet by ity of disintegrat 00:00: mouth [place] ing tablet 00 every 8 Medica l (eight) Branch hours as needed for Nausea and Vomiting (N/V). acetaminoph 0 Yes [id number] 650mg Take 1 Univers en (TYLENOL 8-29 tablet by ity of ARTHRITIS 00:00: mouth [place] PAIN) 650 00 every 8 Medical mg CR (eight) Branch tablet hours as needed for Pain. ketorolac 0 Yes [id number] 10mg Take 1 U nivers 10 mg 8-29 tablet by ity of tablet 00:00: mouth [place] 00 every 6 Medical (six) Branch hours as needed for Pain (scale 4-6) or Pain (scale 7-10). metaxalone 2022-0 Yes [id number] 800mg Take 1 Univers (SKELAXIN) 8-29 tablet by ity of 800 mg 00:00: mouth in [place] tablet 00 the Medical morning Branch and 1 tablet at noon and 1 tablet in the evening. ondansetron 2022-0 Yes [id number] 4mg Take 1 Univers 4 mg 8-29 tablet by ity of disintegrat 00:00: mouth [place] ing tablet 00 every 8 Medica l (eight) Branch hours as needed for Nausea and Vomiting (N/V). acetaminoph 2022-0 Yes [id number] 650mg Take 1 Univers en (TYLENOL 8-29 tablet by ity of ARTHRITIS 00:00: mouth [place] PAIN) 650 00 every 8 Medical mg CR (eight) Branch tablet hours as needed for Pain. ketorolac 2022-0 Yes [id number] 10mg Take 1 U nivers 10 mg 8-29 tablet by ity of tablet 00:00: mouth [place] 00 every 6 Medical (six) Branch hours as needed for Pain (scale 4-6) or Pain (scale 7-10). metaxalone 2022-0 Yes [id number] 800mg Take 1 Univers (SKELAXIN) 8-29 tablet by ity of 800 mg 00:00: mouth in [place] tablet 00 the Medical morning Branch and 1 tablet at noon and 1 tablet in the evening. ondansetron 2022-0 Yes [id number] 4mg Take 1 Univers 4 mg 8-29 tablet by ity of disintegrat 00:00: mouth [place] ing tablet 00 every 8 Medica l (eight) Branch hours as needed for Nausea and Vomiting (N/V). acetaminoph 2022-0 Yes [id number] 650mg Take 1 [facility] en (TYLENOL 8-29 tablet by ity of ARTHRITIS 00:00: mouth [place] PAIN) 650 00 every 8 Medical mg CR (eight) Branch tablet hours as needed for Pain. ketorolac 2022-0 Yes [id number] 10mg Take 1 [facility] n[facility] 10 mg 8-29 tablet by ity of tablet 00:00: mouth [place] 00 every 6 Medical (six) Branch hours as needed for Pain (scale 4-6) or Pain (scale 7-10). metaxalone 2022-0 Yes [id number] 800mg Take 1 [facility] (SKELAXIN) 8-29 tablet by ity of 800 mg 00:00: mouth in [place] tablet 00 the Medical morning Branch and 1 tablet at noon and 1 tablet in the evening. ondansetron 2022-0 Yes [id number] 4mg Take 1 [facility] 4 mg 8-29 tablet by ity of disintegrat 00:00: mouth [place] ing tablet 00 every 8 Medica l (eight) Branch hours as needed for Nausea and Vomiting (N/V). acetaminoph 2022-0 Yes [id number] 650mg Take 1 [facility] en (TYLENOL 8-29 tablet by ity of ARTHRITIS 00:00: mouth [place] PAIN) 650 00 every 8 Medical mg CR (eight) Branch tablet hours as needed for Pain. ketorolac 2022-0 Yes [id number] 10mg Take 1 [facility] n[facility] 10 mg 8-29 tablet by ity of tablet 00:00: mouth [place] 00 every 6 Medical (six) Branch hours as needed for Pain (scale 4-6) or Pain (scale 7-10). metaxalone 2022-0 Yes [id number] 800mg Take 1 [facility] (SKELAXIN) 8-29 tablet by ity of 800 mg 00:00: mouth in [place] tablet 00 the Medical morning Branch and 1 tablet at noon and 1 tablet in the evening. ondansetron 2022-0 Yes [id number] 4mg Take 1 [facility] 4 mg 8-29 tablet by ity of disintegrat 00:00: mouth [place] ing tablet 00 every 8 Medica l (eight) Branch hours as needed for Nausea and Vomiting (N/V). acetaminoph 2022-0 Yes [id number] 650mg Take 1 [facility] en (TYLENOL 8-29 tablet by ity of ARTHRITIS 00:00: mouth [place] PAIN) 650 00 every 8 Medical mg CR (eight) Branch tablet hours as needed for Pain. ketorolac 2022-0 Yes [id number] 10mg Take 1 [facility] n[facility] 10 mg 8-29 tablet by ity of tablet 00:00: mouth [place] 00 every 6 Medical (six) Branch hours as needed for Pain (scale 4-6) or Pain (scale 7-10). metaxalone 2022-0 Yes [id number] 800mg Take 1 [facility] (SKELAXIN) 8-29 tablet by ity of 800 mg 00:00: mouth in [place] tablet 00 the Medical morning Branch and 1 tablet at noon and 1 tablet in the evening. ondansetron 2022-0 Yes [id number] 4mg Take 1 [facility] 4 mg 8-29 tablet by ity of disintegrat 00:00: mouth [place] ing tablet 00 every 8 Medica l (eight) Branch hours as needed for Nausea and Vomiting (N/V). acetaminoph 2022-0 Yes [id number] 650mg Take 1 [facility] en (TYLENOL 8-29 tablet by ity of ARTHRITIS 00:00: mouth [place] PAIN) 650 00 every 8 Medical mg CR (eight) Branch tablet hours as needed for Pain. ketorolac 2022-0 Yes [id number] 10mg Take 1 [facility] n[facility] 10 mg 8-29 tablet by ity of tablet 00:00: mouth [place] 00 every 6 Medical (six) Branch hours as needed for Pain (scale 4-6) or Pain (scale 7-10). metaxalone 2021-0 Yes [id number] 800mg Take 1 [facility] (SKELAXIN) 8-29 tablet by ity of 800 mg 00:00: mouth in [place] tablet 00 the Medical morning Branch and 1 tablet at noon and 1 tablet in the evening. ondansetron 2021-0 Yes [id number] 4mg Take 1 [facility] 4 mg 8-29 tablet by ity of disintegrat 00:00: mouth [place] ing tablet 00 every 8 Medica l (eight) Branch hours as needed for Nausea and Vomiting (N/V). acetaminoph 2-0 Yes [id number] 650mg Take 1 [facility] en (TYLENOL 8-29 tablet by ity of ARTHRITIS 00:00: mouth [place] PAIN) 650 00 every 8 Medical mg CR (eight) Branch tablet hours as needed for Pain. ketorolac 2022-0 Yes [id number] 10mg Take 1 [facility] n[facility] 10 mg 8-29 tablet by ity of tablet 00:00: mouth [place] 00 every 6 Medical (six) Branch hours as needed for Pain (scale 4-6) or Pain (scale 7-10). metaxalone 2022-0 Yes [id number] 800mg Take 1 [facility] (SKELAXIN) 8-29 tablet by ity of 800 mg 00:00: mouth in [place] tablet 00 the Medical morning Branch and 1 tablet at noon and 1 tablet in the evening. ondansetron 2022-0 Yes [id number] 4mg Take 1 [facility] 4 mg 8-29 tablet by ity of disintegrat 00:00: mouth [place] ing tablet 00 every 8 Medica l (eight) Branch hours as needed for Nausea and Vomiting (N/V). acetaminoph 2022-0 Yes [id number] 650mg Take 1 [facility] en (TYLENOL 8-29 tablet by ity of ARTHRITIS 00:00: mouth [place] PAIN) 650 00 every 8 Medical mg CR (eight) Branch tablet hours as needed for Pain. ketorolac 2022-0 Yes [id number] 10mg Take 1 [facility] n[facility] 10 mg 8-29 tablet by ity of tablet 00:00: mouth [place] 00 every 6 Medical (six) Branch hours as needed for Pain (scale 4-6) or Pain (scale 7-10). metaxalone 2022-0 Yes [id number] 800mg Take 1 [facility] (SKELAXIN) 8-29 tablet by ity of 800 mg 00:00: mouth in [place] tablet 00 the Medical morning Branch and 1 tablet at noon and 1 tablet in the evening. ondansetron 2-0 Yes [id number] 4mg Take 1 [facility] 4 mg 8-29 tablet by ity of disintegrat 00:00: mouth [place] ing tablet 00 every 8 Medica l (eight) Branch hours as needed for Nausea and Vomiting (N/V). acetaminoph 2-0 Yes [id number] 650mg Take 1 [facility] en (TYLENOL 8-29 tablet by ity of ARTHRITIS 00:00: mouth [place] PAIN) 650 00 every 8 Medical mg CR (eight) Branch tablet hours as needed for Pain. ketorolac 2022-0 Yes [id number] 10mg Take 1 [facility] 10 mg 8-29 tablet by ity of tablet 00:00: mouth [place] 00 every 6 Medical (six) Branch hours as needed for Pain (scale 4-6) or Pain (scale 7-10). metaxalone 2022-0 Yes [id number] 800mg Take 1 [facility] (SKELAXIN) 8-29 tablet by ity of 800 mg 00:00: mouth in [place] tablet 00 the Medical morning Branch and 1 tablet at noon and 1 tablet in the evening. ondansetron 2021-0 Yes [id number] 4mg Take 1 [facility] 4 mg 8-29 tablet by ity of disintegrat 00:00: mouth [place] ing tablet 00 every 8 Medica l (eight) Branch hours as needed for Nausea and Vomiting (N/V). acetaminoph 2021-0 Yes [id number] 650mg Take 1 [facility] en (TYLENOL 8-29 tablet by ity of ARTHRITIS 00:00: mouth [place] PAIN) 650 00 every 8 Medical mg CR (eight) Branch tablet hours as needed for Pain. ketorolac 2021-0 Yes [id number] 10mg Take 1 [facility] 10 mg 8-29 tablet by ity of tablet 00:00: mouth [place] 00 every 6 Medical (six) Branch hours as needed for Pain (scale 4-6) or Pain (scale 7-10). metaxalone 2021-0 Yes [id number] 800mg Take 1 [facility] (SKELAXIN) 8-29 tablet by ity of 800 mg 00:00: mouth in [place] tablet 00 the Medical morning Branch and 1 tablet at noon and 1 tablet in the evening. acetaminoph 2021-0 Yes [id number] 650mg Take 1 [facility] en (TYLENOL 8-29 tablet by ity of ARTHRITIS 00:00: mouth [place] PAIN) 650 00 every 8 Medical mg CR (eight) Branch tablet hours as needed for Pain. acetaminoph 2021-0 Yes [id number] 650mg Take 1 [facility] en (TYLENOL 8-29 tablet by ity of ARTHRITIS 00:00: mouth [place] PAIN) 650 00 every 8 Medical mg CR (eight) Branch tablet hours as needed for Pain. acetaminoph 2021-0 Yes [id number] 650mg Take 1 [facility] en (TYLENOL 8-29 tablet by ity of ARTHRITIS 00:00: mouth [place] PAIN) 650 00 every 8 Medical mg CR (eight) Branch tablet hours as needed for Pain. acetaminoph 2021-0 Yes [id number] 650mg Take 1 [facility] en (TYLENOL 8-29 tablet by ity of ARTHRITIS 00:00: mouth [place] PAIN) 650 00 every 8 Medical mg CR (eight) Branch tablet hours as needed for Pain. acetaminoph 2021-0 Yes [id number] 650mg Take 1 [facility] en (TYLENOL 8-29 tablet by ity of ARTHRITIS 00:00: mouth [place] PAIN) 650 00 every 8 Medical mg CR (eight) Branch tablet hours as needed for Pain. acetaminoph 0 Yes [id number] 650mg Take 1 [facility] en (TYLENOL 8-29 tablet by ity of ARTHRITIS 00:00: mouth [place] PAIN) 650 00 every 8 Medical mg CR (eight) Branch tablet hours as needed for Pain. acetaminoph 0 Yes [id number] 650mg Take 1 [facility] en (TYLENOL 8-29 tablet by ity of ARTHRITIS 00:00: mouth [place] PAIN) 650 00 every 8 Medical mg CR (eight) Branch tablet hours as needed for Pain. acetaminoph 0 Yes [id number] 650mg Take 1 [facility] en (TYLENOL 8-29 tablet by ity of ARTHRITIS 00:00: mouth [place] PAIN) 650 00 every 8 Medical mg CR (eight) Branch tablet hours as needed for Pain. acetaminoph 0 Yes [id number] 650mg Take 1 [facility] en (TYLENOL 8-29 tablet by ity of ARTHRITIS 00:00: mouth [place] PAIN) 650 00 every 8 Medical mg CR (eight) Branch tablet hours as needed for Pain. acetaminoph 0 Yes [id number] 650mg Take 1 [facility] en (TYLENOL 8-29 tablet by ity of ARTHRITIS 00:00: mouth [place] PAIN) 650 00 every 8 Medical mg CR (eight) Branch tablet hours as needed for Pain. acetaminoph 0 Yes [id number] 650mg Take 1 [facility] en (TYLENOL 8-29 tablet by ity of ARTHRITIS 00:00: mouth [place] PAIN) 650 00 every 8 Medical mg CR (eight) Branch tablet hours as needed for Pain. acetaminoph 0 Yes [id number] 650mg Take 1 [facility] en (TYLENOL 8-29 tablet by ity of ARTHRITIS 00:00: mouth [place] PAIN) 650 00 every 8 Medical mg CR (eight) Branch tablet hours as needed for Pain. acetaminoph 0 Yes [id number] 650mg Take 1 [facility] en (TYLENOL 8-29 tablet by ity of ARTHRITIS 00:00: mouth [place] PAIN) 650 00 every 8 Medical mg CR (eight) Branch tablet hours as needed for Pain. acetaminoph 0 Yes [id number] 650mg Take 1 [facility] en (TYLENOL 8-29 tablet by ity of ARTHRITIS 00:00: mouth [place] PAIN) 650 00 every 8 Medical mg CR (eight) Branch tablet hours as needed for Pain. acetaminoph Yes [id number] 650mg Take 1 [facility] en (TYLENOL 8-29 tablet by ity of ARTHRITIS 00:00: mouth [place] PAIN) 650 00 every 8 Medical mg CR (eight) Branch tablet hours as needed for Pain. acetaminoph Yes [id number] 650mg Take 1 [facility] en (TYLENOL 8-29 tablet by ity of ARTHRITIS 00:00: mouth [place] PAIN) 650 00 every 8 Medical mg CR (eight) Branch tablet hours as needed for Pain. acetaminoph Yes [id number] 650mg Take 1 [facility] en (TYLENOL 8-29 tablet by ity of ARTHRITIS 00:00: mouth [place] PAIN) 650 00 every 8 Medical mg CR (eight) Branch tablet hours as needed for Pain. acetaminoph 2021- No [id number] 650mg Take 1 [facility] en (TYLENOL 8-29 11-26 tablet by it y of ARTHRITIS 00:00: 00:00 mouth [place] PAIN) 650 00 :00 every 8 Medical mg CR (eight) Branch tablet hours as needed for Pain. ondansetron 2021- No [id number] 4mg Take 1 [facility] 4 mg 8-29 10-18 tablet by ity of disintegrat 00:00: 00:00 [place] tablet 00 :00 every 8 Medica l (eight) Branch hours as needed for Nausea and Vomiting (N/V). ketorolac 2021- No [id number] 10mg Take 1 [facility] 10 mg 8-29 10-18 tablet by ity of tablet 00:00: 00:00 mouth [place] 00 :00 every 6 Medical (six) Branch hours as needed for Pain (scale 4-6) or Pain (scale 7-10). metaxalone 2021- No [id number] 800mg Take 1 [facility] (SKELAXIN) 8-29 10-18 tablet by ity of 800 mg 00:00: 00:00 mouth in [place] tablet 00 :00 the Medical morning Branch and 1 tablet at noon and 1 tablet in the evening. ondansetron 2- No [id number] 4mg Take 1 [facility] 4 mg 8-29 10-18 tablet by ity of disintegrat 00:00: 00:00 [place] tablet 00 :00 every 8 Medica l (eight) Branch hours as needed for Nausea and Vomiting (N/V). ketorolac 2022-0 2022- No [id number] 10mg Take 1 [facility] 10 mg 8-29 10-18 tablet by ity of tablet 00:00: 00:00 mouth [place] 00 :00 every 6 Medical (six) Branch hours as needed for Pain (scale 4-6) or Pain (scale 7-10). metaxalone 2022-0 2022- No [id number] 800mg Take 1 [facility] (SKELAXIN) 8-29 10-18 tablet by ity of 800 mg 00:00: 00:00 mouth in [place] tablet 00 :00 the Medical morning Branch and 1 tablet at noon and 1 tablet in the evening. ondansetron 2022-0 2022- No [id number] 4mg Take 1 [facility] 4 mg 8-29 10-18 tablet by ity of disintegrat 00:00: 00:00 [place] tablet 00 :00 every 8 Medica l (eight) Branch hours as needed for Nausea and Vomiting (N/V). ketorolac 2022-0 2- No [id number] 10mg Take 1 [facility] 10 mg 8-29 10-18 tablet by ity of tablet 00:00: 00:00 mouth [place] 00 :00 every 6 Medical (six) Branch hours as needed for Pain (scale 4-6) or Pain (scale 7-10). metaxalone 2022-0 2022- No [id number] 800mg Take 1 [facility] (SKELAXIN) 8-29 10-18 tablet by ity of 800 mg 00:00: 00:00 mouth in [place] tablet 00 :00 the Medical morning Branch and 1 tablet at noon and 1 tablet in the evening. ondansetron 2022-0 2022- No [id number] 4mg Take 1 [facility] 4 mg 8-29 10-18 tablet by ity of disintegrat 00:00: 00:00 mouth [place] tablet 00 :00 every 8 Medica l (eight) Branch hours as needed for Nausea and Vomiting (N/V). ketorolac 2-0 2021- No [id number] 10mg Take 1 [facility] 10 mg 8-29 10-18 tablet by ity of tablet 00:00: 00:00 mouth [place] 00 :00 every 6 Medical (six) Branch hours as needed for Pain (scale 4-6) or Pain (scale 7-10). metaxalone 2021-0 2021- No [id number] 800mg Take 1 [facility] (SKELAXIN) 8-29 10-18 [...] mouth. ity of supp. no.8 15:08: 00:00 [place] (TRAZAMINE 46 :00 Medical ORAL) Branch diphenhydrA 0 Yes 25mg Take 25 mg [facility] MINE 25 mg 12-12 by mouth ity o f capsule 13:03: every 6 [place] 04 (six) Medical hours as Branch needed for Allergies. carbamazepi 0 Yes Take by [facility] vers ne 8-02 mouth. ity of (TEGRETOL 13:03: [place] ORAL) 04 Medical Branch citalopram 2021-0 Yes Take by [facility] ers hydrobromid 802 mouth. ity of e 13:03: [place] (CITALOPRAM 04 Medical ORAL) Branch ALBUTEROL 0 Yes [facility] INHALE 8-02 ity of 13:03: [place] [address] Medical Branch diphenhydrA 0 Yes 25mg Take 25 mg [facility] MINE 25 mg 802 by mouth ity o f capsule 13:03: every 6 [place] [address] (six) Medical hours as Branch needed for Allergies. carbamazepi 0 Yes Take by [facility] vers ne 8-02 mouth. ity of (TEGRETOL 13:03: [place] ORAL) Medical Branch citalopram Yes Take by [facility] ers hydrobromid 8-02 mouth. ity of e 13:03: [place] (CITALOPRAM 04 Medical ORAL) Branch ALBUTEROL Yes [facility] INHALE 8- ity of 13:03: [place] [address] Medical Branch diphenhydrA Yes 25mg Take 25 mg [facility] MINE 25 mg 802 by mouth ity o f capsule 13:03: every 6 [place] [address] (six) Medical hours as Branch needed for Allergies. carbamazepi 0 Yes Take by [facility] vers ne 8-02 mouth. ity of (TEGRETOL 13:03: [place] ORAL) Medical Branch citalopram Yes Take by [facility] ers hydrobromid 8-02 mouth. ity of e 13:03: [place] (CITALOPRAM 04 Medical ORAL) Branch ALBUTEROL Yes [facility] INHALE 8- ity of 13:03: [place] [address] Medical Branch diphenhydrA Yes 25mg Take 25 mg [facility] MINE 25 mg 12-12 by mouth ity o f capsule 13:03: every 6 [place] [address] (six) Medical hours as Branch needed for Allergies. carbamazepi 0 Yes Take by [facility] vers ne 8-02 mouth. ity of (TEGRETOL 13:03: [place] ORAL) 04 Medical Branch citalopram Yes Take by [facility] ers hydrobromid 8-02 mouth. ity of e 13:03: [place] (CITALOPRAM 04 Medical ORAL) Branch ALBUTEROL 0 Yes [facility] INHALE 802 ity of 13:03: [place] [address] Medical Branch diphenhydrA Yes 25mg Take 25 mg [facility] MINE 25 mg 8-02 by mouth ity o f capsule 13:03: every 6 [place] [address] (six) Medical hours as Branch needed for Allergies. carbamazepi 0 Yes Take by [facility] vers ne 8-02 mouth. ity of (TEGRETOL 13:03: [place] ORAL) 04 Medical Branch citalopram Yes Take by [facility] ers hydrobromid 8-02 mouth. ity of e 13:03: [place] (CITALOPRAM 04 Medical ORAL) Branch ALBUTEROL Yes [facility] INHALE 8-02 ity of 13:03: Medical Branch diphenhydrA Yes 25mg Take 25 mg [facility] MINE 25 mg 8-02 by mouth ity o f capsule 13:03: every 6 [place] [address] (six) Medical hours as Branch needed for Allergies. carbamazepi Yes Take by [facility] vers ne 8-02 mouth. ity of (TEGRETOL 13:03: [place] ORAL) Medical Branch citalopram Yes Take by [facility] ers hydrobromid 8-02 mouth. ity of e 13:03: [place] (CITALOPRAM 04 Medical ORAL) Branch ALBUTEROL Yes [facility] INHALE 8-02 ity of 13:03: [place] [address] Medical Branch diphenhydrA Yes 25mg Take 25 mg [facility] MINE 25 mg 8 by mouth ity o f capsule 13:03: every 6 [place] [address] (six) Medical hours as Branch needed for Allergies. carbamazepi Yes Take by [facility] vers ne 8-02 mouth. ity of (TEGRETOL 13:03: [place] ORAL) Medical Branch citalopram Yes Take by [facility] ers hydrobromid 8-02 mouth. ity of e 13:03: [place] (CITALOPRAM 04 Medical ORAL) Branch ALBUTEROL Yes [facility] INHALE 8-02 ity of 13:03: [place] [address] Medical Branch diphenhydrA 0 Yes 25mg Take 25 mg [facility] MINE 25 mg 802 by mouth ity o f capsule 13:03: every 6 [place] [address] (six) Medical hours as Branch needed for Allergies. carbamazepi 0 Yes Take by [facility] vers ne 8-02 mouth. ity of (TEGRETOL 13:03: [place] ORAL) 04 Medical Branch citalopram Yes Take by [facility] ers hydrobromid 8-02 mouth. ity of e 13:03: [place] (CITALOPRAM 04 Medical ORAL) Branch ALBUTEROL Yes [facility] INHALE 802 ity of 13:03: [place] [address] Medical Branch diphenhydrA Yes 25mg Take 25 mg [facility] MINE 25 mg 8-02 by mouth ity o f capsule 13:03: every 6 [place] [address] (six) Medical hours as Branch needed for Allergies. carbamazepi 0 Yes Take by [facility] vers ne 8-02 mouth. ity of (TEGRETOL 13:03: [place] ORAL) Medical Branch citalopram Yes Take by [facility] ers hydrobromid 8-02 mouth. ity of e 13:03: [place] (CITALOPRAM 04 Medical ORAL) Branch ALBUTEROL Yes [facility] INHALE 8 ity of 13:03: [place] [address] Medical Branch diphenhydrA Yes 25mg Take 25 mg [facility] MINE 25 mg 802 by mouth ity o f capsule 13:03: every 6 [place] [address] (six) Medical hours as Branch needed for Allergies. carbamazepi Yes Take by [facility] vers ne 8-02 mouth. ity of (TEGRETOL 13:03: [place] ORAL) Medical Branch citalopram Yes Take by [facility] ers hydrobromid 8-02 mouth. ity of e 13:03: [place] (CITALOPRAM 04 Medical ORAL) Branch ALBUTEROL Yes [facility] INHALE 8 ity of 13:03: [place] [address] Medical Branch diphenhydrA Yes 25mg Take 25 mg [facility] MINE 25 mg 8-02 by mouth ity o f capsule 13:03: every 6 [place] [address] (six) Medical hours as Branch needed for Allergies. carbamazepi 0 Yes Take by [facility] vers ne 8-02 mouth. ity of (TEGRETOL 13:03: [place] ORAL) 04 Medical Branch citalopram Yes Take by [facility] ers hydrobromid 8-02 mouth. ity of e 13:03: [place] (CITALOPRAM 04 Medical ORAL) Branch ALBUTEROL Yes [facility] INHALE 8-02 ity of 13:03: [address] ALBUTEROL Yes [facility] INHALE 8-02 ity of 13:03: [address] ALBUTEROL Yes [facility] INHALE 8-02 ity of 13:03: [address] ALBUTEROL Yes [facility] INHALE 8-02 ity of 13:03: [address] ALBUTEROL Yes [facility] INHALE 8-02 ity of 13:03: [address] ALBUTEROL Yes [facility] INHALE 8-02 ity of 13:03: [address] ALBUTEROL Yes [facility] INHALE 8-02 ity of 13:03: [address] ALBUTEROL Yes [facility] INHALE 8-02 ity of 13:03: [address] ALBUTEROL Yes [facility] INHALE 8-02 ity of 13:03: [address] ALBUTEROL Yes [facility] INHALE 8-02 ity of 13:03: [address] ALBUTEROL Yes [facility] INHALE 8-02 ity of 13:03: [address] ALBUTEROL Yes [facility] INHALE 8-02 ity of 13:03: [address] ALBUTEROL Yes [facility] INHALE 8-02 ity of 13:03: [address] ALBUTEROL Yes [facility] INHALE 8-02 ity of 13:03: [address] ALBUTEROL Yes [facility] INHALE 8-02 ity of 13:03: [address] traZODone Yes [id number] 50mg Take 1 U nivers 50 mg 8-02 tablet by ity of tablet 00:00: mouth at [place] 00 bedtime. Medical Branch SERTraline Yes [id number] 50mg Take 1 [facility] (ZOLOFT) 50 8-02 tablet by ity of mg tablet 00:00: mouth in [place] 00 the Medical morning. Branch traZODone Yes [id number] 50mg Take 1 U nivers 50 mg 8-02 tablet by ity of tablet 00:00: mouth at [place] 00 bedtime. Medical Branch SERTraline Yes 50mg Take 1 [facility] (ZOLOFT) 50 8-02 tablet by ity of mg tablet 00:00: mouth [place] 00 the Medical morning. Branch traZODone 0 Yes [id number] 50mg Take 1 U nivers 50 mg 8-02 tablet by ity of tablet 00:00: mouth at [place] 00 bedtime. Medical Branch SERTraline 0 Yes 50mg Take 1 [facility] (ZOLOFT) 50 8-02 tablet by ity of mg tablet 00:00: mouth [place] 00 the Medical morning. Branch traZODone 0 Yes [id number] 50mg Take 1 U nivers 50 mg 8-02 tablet by ity of tablet 00:00: mouth at [place] 00 bedtime. Medical Branch SERTraline 0 Yes 50mg Take 1 [facility] (ZOLOFT) 50 8-02 tablet by ity of mg tablet 00:00: mouth [place] 00 the Medical morning. Branch traZODone 0 Yes [id number] 50mg Take 1 U nivers 50 mg 8-02 tablet by ity of tablet 00:00: mouth at [place] 00 bedtime. Medical Branch SERTraline 0 Yes 50mg Take 1 [facility] (ZOLOFT) 50 8-02 tablet by ity of mg tablet 00:00: mouth [place] 00 the Medical morning. Branch traZODone 0 Yes [id number] 50mg Take 1 U nivers 50 mg 8-02 tablet by ity of tablet 00:00: mouth at [place] 00 bedtime. Medical Branch SERTraline 0 Yes [id number] 50mg Take 1 [facility] (ZOLOFT) 50 8-02 tablet by ity of mg tablet 00:00: mouth [place] 00 the Medical morning. Branch traZODone 0 Yes [id number] 50mg Take 1 U nivers 50 mg 8-02 tablet by ity of tablet 00:00: mouth at [place] 00 bedtime. Medical Branch SERTraline Yes [id number] 50mg Take 1 [facility] (ZOLOFT) 50 8-02 tablet by ity of mg tablet 00:00: mouth [place] 00 the Medical morning. Branch traZODone Yes [id number] 50mg Take 1 U nivers 50 mg 8-02 tablet by ity of tablet 00:00: mouth at [place] 00 bedtime. Medical Branch SERTraline Yes [id number] 50mg Take 1 [facility] (ZOLOFT) 50 8-02 tablet by ity of mg tablet 00:00: mouth in [place] 00 the Medical morning. Branch traZODone 0 Yes [id number] 50mg Take 1 U nivers 50 mg 8-02 tablet by ity of tablet 00:00: mouth at [place] 00 bedtime. Medical Branch SERTraline Yes [id number] 50mg Take 1 [facility] (ZOLOFT) 50 8-02 tablet by ity of mg tablet 00:00: mouth [place] 00 the Medical morning. Branch traZODone Yes [id number] 50mg Take 1 U nivers 50 mg 8-02 tablet by ity of tablet 00:00: mouth at [place] 00 bedtime. Medical Branch SERTraline Yes [id number] 50mg Take 1 [facility] (ZOLOFT) 50 8-02 tablet by ity of mg tablet 00:00: mouth in [place] 00 the Medical morning. Branch traZODone Yes [id number] 50mg Take 1 U nivers 50 mg 8-02 tablet by ity of tablet 00:00: mouth at [place] 00 bedtime. Medical Branch SERTraline Yes [id number] 50mg Take 1 [facility] (ZOLOFT) 50 8-02 tablet by ity of mg tablet 00:00: mouth [place] 00 the Medical morning. Branch traZODone 2021- No [id number] 50mg Take 1 [facility] 50 mg 8-02 10-18 tablet by ity of tablet 00:00: 00:00 mouth at [place] 00 :00 bedtime. Medical Branch SERTraline 2021- No [id number] 50mg Take 1 [facility] (ZOLOFT) 50 8-02 10-18 tablet by it y of mg tablet 00:00: 00:00 mouth in [place] as 00 :00 the Medical morning. Branch traZODone 2021- No [id number] 50mg Take 1 [facility] 50 mg 8-02 10-18 tablet by ity of tablet 00:00: 00:00 mouth at [place] 00 :00 bedtime. Medical Branch SERTraline 2021- No [id number] 50mg Take 1 [facility] (ZOLOFT) 50 8- 10-18 tablet by it y of mg tablet 00:00: 00:00 mouth in [facility] [place] [facility] as 00 :00 the Medical morning. Branch traZODone 2021- No [id number] 50mg Take 1 [facility] 50 mg 8- 10-18 tablet by ity of tablet 00:00: 00:00 mouth at [place] 00 :00 bedtime. Medical Branch SERTraline 2021- No [id number] 50mg Take 1 [facility] (ZOLOFT) 50 8- 10-18 tablet by it y of mg tablet 00:00: 00:00 mouth in [facility] [place] [facility] as 00 :00 the Medical morning. Branch traZODone 2021- No [id number] 50mg Take 1 [facility] 50 mg 8- 10-18 tablet by ity of tablet 00:00: 00:00 mouth at [place] 00 :00 bedtime. Medical Branch SERTraline 2021- No [id number] 50mg Take 1 [facility] (ZOLOFT) 50 8- 10-18 tablet by it y of mg tablet 00:00: 00:00 mouth in [facility] [place] [facility] as 00 :00 the Medical morning. Branch sulfamethox 2021- No [id number] 1{tbl} Take 1 [facility] azole-trime - 08-06 tablet by it y of thoprim 00:00: 04:59 mouth in [place] (BACTRIM 00 :00 the Medical DS) 800-160 morning Branc h mg per and 1 tablet tablet in the evening. Do all this for 3 days. ibuprofen Yes [id number] 600mg Take 1 [facility] 600 mg 7-15 tablet by ity of tablet 00:00: mouth [place] [id number] every 6 Medical (six) Branch hours as needed for Pain (scale 4-6). ibuprofen 0 Yes [id number] 600mg Take 1 [facility] 600 mg 7-15 tablet by ity of tablet 00:00: mouth [place] [id number] every 6 Medical (six) Branch hours as needed for Pain (scale 4-6). ibuprofen 2021-0 Yes [id number] 600mg Take 1 [facility] 600 mg 7-15 tablet by ity of tablet 00:00: mouth [place] 00 every 6 Medical (six) Branch hours as needed for Pain (scale 4-6). ibuprofen 2022-0 Yes [id number] 600mg Take 1 [facility] 600 mg 7-15 tablet by ity of tablet 00:00: mouth [place] 00 every 6 Medical (six) Branch hours as needed for Pain (scale 4-6). ibuprofen 2022-0 Yes [id number] 600mg Take 1 [facility] 600 mg 7-15 tablet by ity of tablet 00:00: mouth [place] 00 every 6 Medical (six) Branch hours as needed for Pain (scale 4-6). ibuprofen 2022-0 Yes [id number] 600mg Take 1 [facility] 600 mg 7-15 tablet by ity of tablet 00:00: mouth [place] 00 every 6 Medical (six) Branch hours as needed for Pain (scale 4-6). ibuprofen 2022-0 Yes [id number] 600mg Take 1 [facility] 600 mg 7-15 tablet by ity of tablet 00:00: mouth [place] 00 every 6 Medical (six) Branch hours as needed for Pain (scale 4-6). ibuprofen 2022-0 Yes [id number] 600mg Take 1 [facility] 600 mg 7-15 tablet by ity of tablet 00:00: mouth [place] 00 every 6 Medical (six) Branch hours as needed for Pain (scale 4-6). ibuprofen 2022-0 Yes [id number] 600mg Take 1 [facility] 600 mg 7-15 tablet by ity of tablet 00:00: mouth [place] 00 every 6 Medical (six) Branch hours as needed for Pain (scale 4-6). ibuprofen 2022-0 Yes [id number] 600mg Take 1 [facility] 600 mg 7-15 tablet by ity of tablet 00:00: mouth [place] 00 every 6 Medical (six) Branch hours as needed for Pain (scale 4-6). ibuprofen 2022-0 Yes [id number] 600mg Take 1 [facility] 600 mg 7-15 tablet by ity of tablet 00:00: mouth [place] 00 every 6 Medical (six) Branch hours as needed for Pain (scale 4-6). ibuprofen 2022-0 2022- No [id number] 600mg Take 1 [facility] 600 mg 7-15 10-18 tablet by ity of tablet 00:00: 00:00 mouth [place] 00 :00 every 6 Medical (six) Branch hours as needed for Pain (scale 4-6). ibuprofen 2021-2021- No [id number] 600mg Take 1 [facility] 600 mg 7-15 10-18 tablet by ity of tablet 00:00: 00:00 mouth [place] 00 :00 every 6 Medical (six) Branch hours as needed for Pain (scale 4-6). ibuprofen 2021-2021- No [id number] 600mg Take 1 [facility] 600 mg 7-15 10-18 tablet by ity of tablet 00:00: 00:00 mouth [place] 00 :00 every 6 Medical (six) Branch hours as needed for Pain (scale 4-6). ibuprofen 2021-2021- No [id number] 600mg Take 1 [facility] 600 mg 7-15 10-18 tablet by ity of tablet 00:00: 00:00 mouth [place] 00 :00 every 6 Medical (six) Branch hours as needed for Pain (scale 4-6). ibuprofen 2021-2021- No [id number] 600mg Take 1 [facility] 600 mg 7-15 [...] Indication s: acute pain bromphenira 2021-0 Yes [id number] 5mL Take 5 mL [facility] mine-pseudo 11-18 by mouth 4 it y of ephedrine-D 00:00: (four) [place] (BROMFED 00 times Medical DM) 2-30-10 daily as Bran ch mg/5 mL needed for syrup Congestion /Allergies or Cough. naproxen 2022-0 Yes [id number] 500mg Take 1 [facility] 500 mg 7-09 tablet by ity of tablet 00:00: mouth [place] 00 every 8 Medical (eight) Branch hours as needed for Pain (scale 4-6). cyclobenzap 2021-0 Yes [id number] 10mg Take 1 [facility] rine 10 mg 7-09 tablet by ity of tablet 00:00: mouth at [place] 00 bedtime as Medical needed for Branch Muscle Spasms. bromphenira 202-0 Yes [id number] 5mL Take 5 mL [facility] mine-pseudo 7-09 by mouth 4 it y of ephedrine-D 00:00: (four) [place] (BROMFED 00 times Medical DM) 2-30-10 daily as Bran ch mg/5 mL needed for syrup Congestion /Allergies or Cough. naproxen 2021-0 Yes [id number] 500mg Take 1 [facility] 500 mg 7-09 tablet by ity of tablet 00:00: mouth [place] 00 every 8 Medical (eight) Branch hours as needed for Pain (scale 4-6). cyclobenzap 2021-0 Yes [id number] 10mg Take 1 [facility] rine 10 mg 7-09 tablet by ity of tablet 00:00: mouth at [place] 00 bedtime as Medical needed for Branch Muscle Spasms. bromphenira 2021-0 Yes [id number] 5mL Take 5 mL [facility] mine-pseudo 7-09 by mouth 4 it y of ephedrine-D 00:00: (four) [place] (BROMFED 00 times Medical DM) 2-30-10 daily as Bran ch mg/5 mL needed for syrup Congestion /Allergies or Cough. naproxen 2-0 Yes [id number] 500mg Take 1 [facility] 500 mg 7-09 tablet by ity of tablet 00:00: mouth [place] 00 every 8 Medical (eight) Branch hours as needed for Pain (scale 4-6). cyclobenzap 2022-0 Yes [id number] 10mg Take 1 [facility] rine 10 mg 7-09 tablet by ity of tablet 00:00: mouth at [place] 00 bedtime as Medical needed for Branch Muscle Spasms. bromphenira 2022-0 Yes [id number] 5mL Take 5 mL [facility] mine-pseudo 7-09 by mouth 4 it y of ephedrine-D 00:00: (four) [place] (BROMFED 00 times Medical DM) 2-30-10 daily as Bran ch mg/5 mL needed for syrup Congestion /Allergies or Cough. naproxen 2022-0 Yes [id number] 500mg Take 1 [facility] 500 mg 7-09 tablet by ity of tablet 00:00: mouth [place] 00 every 8 Medical (eight) Branch hours as needed for Pain (scale 4-6). cyclobenzap 2-0 Yes [id number] 10mg Take 1 [facility] rine 10 mg 7-09 tablet by ity of tablet 00:00: mouth at [place] 00 bedtime as Medical needed for Branch Muscle Spasms. bromphenira 2-0 Yes [id number] 5mL Take 5 mL [facility] mine-pseudo 7-09 by mouth 4 it y of ephedrine-D 00:00: (four) [place] (BROMFED 00 times Medical DM) 2-30-10 daily as Bran ch mg/5 mL needed for syrup Congestion /Allergies or Cough. naproxen 2-0 Yes [id number] 500mg Take 1 [facility] 500 mg 7-09 tablet by ity of tablet 00:00: mouth [place] 00 every 8 Medical (eight) Branch hours as needed for Pain (scale 4-6). cyclobenzap 2021-0 Yes [id number] 10mg Take 1 [facility] rine 10 mg 7-09 tablet by ity of tablet 00:00: mouth at [place] 00 bedtime as Medical needed for Branch Muscle Spasms. bromphenira 2-0 Yes [id number] 5mL Take 5 mL [facility] mine-pseudo 7-09 by mouth 4 it y of ephedrine-D 00:00: (four) [place] (BROMFED 00 times Medical DM) 2-30-10 daily as Bran ch mg/5 mL needed for syrup Congestion /Allergies or Cough. naproxen 2022-0 Yes [id number] 500mg Take 1 [facility] 500 mg 7-09 tablet by ity of tablet 00:00: mouth [place] 00 every 8 Medical (eight) Branch hours as needed for Pain (scale 4-6). cyclobenzap 2022-0 Yes [id number] 10mg Take 1 [facility] rine 10 mg 7-09 tablet by ity of tablet 00:00: mouth at [place] 00 bedtime as Medical needed for Branch Muscle Spasms. bromphenira 2021-0 Yes [id number] 5mL Take 5 mL [facility] mine-pseudo 7-09 by mouth 4 it y of ephedrine-D 00:00: (four) [place] (BROMFED 00 times Medical DM) 2-30-10 daily as Bran ch mg/5 mL needed for syrup Congestion /Allergies or Cough. naproxen 2021-0 Yes [id number] 500mg Take 1 [facility] 500 mg 7-09 tablet by ity of tablet 00:00: mouth [place] 00 every 8 Medical (eight) Branch hours as needed for Pain (scale 4-6). cyclobenzap 2021-0 Yes [id number] 10mg Take 1 [facility] rine 10 mg 7-09 tablet by ity of tablet 00:00: mouth at [place] 00 bedtime as Medical needed for Branch Muscle Spasms. bromphenira 2021-0 Yes [id number] 5mL Take 5 mL [facility] mine-pseudo 7-09 by mouth 4 it y of ephedrine-D 00:00: (four) [place] (BROMFED 00 times Medical DM) 2-30-10 daily as Bran ch mg/5 mL needed for syrup Congestion /Allergies or Cough. naproxen 2021-0 Yes [id number] 500mg Take 1 [facility] 500 mg 7-09 tablet by ity of tablet 00:00: mouth [place] 00 every 8 Medical (eight) Branch hours as needed for Pain (scale 4-6). cyclobenzap 2-0 Yes [id number] 10mg Take 1 [facility] rine 10 mg 7-09 tablet by ity of tablet 00:00: mouth at [place] 00 bedtime as Medical needed for Branch Muscle Spasms. bromphenira 2-0 Yes [id number] 5mL Take 5 mL [facility] mine-pseudo 7-09 by mouth 4 it y of ephedrine-D 00:00: (four) [place] (BROMFED 00 times Medical DM) 2-30-10 daily as Bran ch mg/5 mL needed for syrup Congestion /Allergies or Cough. naproxen 2-0 Yes [id number] 500mg Take 1 [facility] 500 mg 7-09 tablet by ity of tablet 00:00: mouth [place] 00 every 8 Medical (eight) Branch hours as needed for Pain (scale 4-6). cyclobenzap 2021-0 Yes [id number] 10mg Take 1 [facility] rine 10 mg 7-09 tablet by ity of tablet 00:00: mouth at [place] 00 bedtime as Medical needed for Branch Muscle Spasms. bromphenira 2021-0 Yes [id number] 5mL Take 5 mL [facility] mine-pseudo 7-09 by mouth 4 it y of ephedrine-D 00:00: (four) [place] (BROMFED 00 times Medical DM) 2-30-10 daily as Bran ch mg/5 mL needed for syrup Congestion /Allergies or Cough. naproxen 2021-0 Yes [id number] 500mg Take 1 [facility] 500 mg 7-09 tablet by ity of tablet 00:00: mouth [place] 00 every 8 Medical (eight) Branch hours as needed for Pain (scale 4-6). cyclobenzap 2021-0 Yes [id number] 10mg Take 1 [facility] rine 10 mg 7-09 tablet by ity of tablet 00:00: mouth at [place] 00 bedtime as Medical needed for Branch Muscle Spasms. bromphenira 2021-0 Yes [id number] 5mL Take 5 mL [facility] mine-pseudo 7-09 by mouth 4 it y of ephedrine-D 00:00: (four) [place] (BROMFED 00 times Medical DM) 2-30-10 daily as Bran ch mg/5 mL needed for syrup Congestion /Allergies or Cough. naproxen 2-0 Yes [id number] 500mg Take 1 [facility] 500 mg 7-09 tablet by ity of tablet 00:00: mouth [place] 00 every 8 Medical (eight) Branch hours as needed for Pain (scale 4-6). cyclobenzap 2-0 Yes [id number] 10mg Take 1 [facility] rine 10 mg 7-09 tablet by ity of tablet 00:00: mouth at [place] 00 bedtime as Medical needed for Branch Muscle Spasms. bromphenira 2022-0 Yes [id number] 5mL Take 5 mL [facility] mine-pseudo 7-09 by mouth 4 it y of ephedrine-D 00:00: (four) [place] (BROMFED 00 times Medical DM) 2-30-10 daily as Bran ch mg/5 mL needed for syrup Congestion /Allergies or Cough. bromphenira 2022-0 Yes [id number] 5mL Take 5 mL [facility] mine-pseudo 7-09 by mouth 4 it y of ephedrine-D 00:00: (four) [place] (BROMFED 00 times Medical DM) 2-30-10 daily as Bran ch mg/5 mL needed for syrup Congestion /Allergies or Cough. bromphenira 2022-0 Yes [id number] 5mL Take 5 mL [facility] mine-pseudo 7-09 by mouth 4 it y of ephedrine-D 00:00: (four) [place] (BROMFED 00 times Medical DM) 2-30-10 daily as Bran ch mg/5 mL needed for syrup Congestion /Allergies or Cough. bromphenira 2-0 Yes [id number] 5mL Take 5 mL [facility] mine-pseudo 7-09 by mouth 4 it y of ephedrine-D 00:00: (four) [place] (BROMFED 00 times Medical DM) 2-30-10 daily as Bran ch mg/5 mL needed for syrup Congestion /Allergies or Cough. bromphenira 2-0 Yes [id number] 5mL Take 5 mL [facility] mine-pseudo 7-09 by mouth 4 it y of ephedrine-D 00:00: (four) [place] (BROMFED 00 times Medical DM) 2-30-10 daily as Bran ch mg/5 mL needed for syrup Congestion /Allergies or Cough. bromphenira 2-0 Yes [id number] 5mL Take 5 mL [facility] mine-pseudo 7-09 by mouth 4 it y of ephedrine-D 00:00: (four) [place] (BROMFED 00 times Medical DM) 2-30-10 daily as Bran ch mg/5 mL needed for syrup Congestion /Allergies or Cough. bromphenira 2-0 Yes [id number] 5mL Take 5 mL [facility] mine-pseudo 7-09 by mouth 4 it y of ephedrine-D 00:00: (four) [place] (BROMFED 00 times Medical DM) 2-30-10 daily as Bran ch mg/5 mL needed for syrup Congestion /Allergies or Cough. bromphenira 2022-0 Yes [id number] 5mL Take 5 mL [facility] mine-pseudo 7-09 by mouth 4 it y of ephedrine-D 00:00: (four) [place] (BROMFED 00 times Medical DM) 2-30-10 daily as Bran ch mg/5 mL needed for syrup Congestion /Allergies or Cough. bromphenira 2021-0 Yes [id number] 5mL Take 5 mL [facility] mine-pseudo 7-09 by mouth 4 it y of ephedrine-D 00:00: (four) [place] (BROMFED 00 times Medical DM) 2-30-10 daily as Bran ch mg/5 mL needed for syrup Congestion /Allergies or Cough. bromphenira 2021-0 Yes [id number] 5mL Take 5 mL [facility] mine-pseudo 7-09 by mouth 4 it y of ephedrine-D 00:00: (four) [place] (BROMFED 00 times Medical DM) 2-30-10 daily as Bran ch mg/5 mL needed for syrup Congestion /Allergies or Cough. bromphenira 2021-0 Yes [id number] 5mL Take 5 mL [facility] mine-pseudo 7-09 by mouth 4 it y of ephedrine-D 00:00: (four) [place] (BROMFED 00 times Medical DM) 2-30-10 daily as Bran ch mg/5 mL needed for syrup Congestion /Allergies or Cough. bromphenira 2021-0 Yes [id number] 5mL Take 5 mL [facility] mine-pseudo 7-09 by mouth 4 it y of ephedrine-D 00:00: (four) [place] (BROMFED 00 times Medical DM) 2-30-10 daily as Bran ch mg/5 mL needed for syrup Congestion /Allergies or Cough. bromphenira 2021-0 Yes [id number] 5mL Take 5 mL [facility] mine-pseudo 7-09 by mouth 4 it y of ephedrine-D 00:00: (four) [place] (BROMFED 00 times Medical DM) 2-30-10 daily as Bran ch mg/5 mL needed for syrup Congestion /Allergies or Cough. bromphenira 202-0 Yes [id number] 5mL Take 5 mL [facility] mine-pseudo 7-09 by mouth 4 it y of ephedrine-D 00:00: (four) [place] (BROMFED 00 times Medical DM) 2-30-10 daily as Bran ch mg/5 mL needed for syrup Congestion /Allergies or Cough. bromphenira 2021- No [id number] 5mL Take 5 mL [facility] mine-pseudo 11-1812 by mouth 4 i ty of ephedrine-D 00:00: 00:00 (four) [place] (BROMFED 00 :00 times Medical DM) 2-30-10 daily as Bran ch mg/5 mL needed for syrup Congestion /Allergies or Cough. bromphenira 2021- No [id number] 5mL Take 5 mL [facility] mine-pseudo 11-18 by mouth 4 i ty of ephedrine-D 00:00: 00:00 (four) [place] (BROMFED 00 :00 times Medical DM) 2-30-10 daily as Bran ch mg/5 mL needed for syrup Congestion /Allergies or Cough. naproxen No [id number] 500mg Take 1 [facility] 500 mg 7- 10-18 tablet by ity of tablet 00:00: 00:00 mouth [place] 00 :00 every 8 Medical (eight) Branch hours as needed for Pain (scale 4-6). cyclobenzap No [id number] 10mg Take 1 [facility] rine 10 mg 7- 10-18 tablet by ity of tablet 00:00: 00:00 mouth at [place] 00 :00 bedtime as Medical needed for Branch Muscle Spasms. naproxen No [id number] 500mg Take 1 [facility] 500 mg 7- 10-18 tablet by ity of tablet 00:00: 00:00 mouth [place] 00 :00 every 8 Medical (eight) Branch hours as needed for Pain (scale 4-6). cyclobenzap No [id number] 10mg Take 1 [facility] rine 10 mg 7- 10-18 tablet by ity of tablet 00:00: 00:00 mouth at [place] 00 :00 bedtime as Medical needed for Branch Muscle Spasms. naproxen No [id number] 500mg Take 1 [facility] 500 mg 7-09 10-18 tablet by ity of tablet 00:00: 00:00 mouth [place] 00 :00 every 8 Medical (eight) Branch hours as needed for Pain (scale 4-6). cyclobenzap No [id number] 10mg Take 1 [facility] rine 10 mg 7- 10-18 tablet by ity of tablet 00:00: 00:00 mouth at [place] 00 :00 bedtime as Medical needed for Branch Muscle Spasms. naproxen 2021- No [id number] 500mg Take 1 [facility] 500 mg 7- 10-18 tablet by ity of tablet 00:00: 00:00 mouth [place] 00 :00 every 8 Medical (eight) Branch hours as needed for Pain (scale 4-6). cyclobenzap No [id number] 10mg Take 1 [facility] rine 10 mg 7- 10-18 tablet by ity of tablet 00:00: 00:00 mouth at [place] 00 :00 bedtime as Medical needed for Branch Muscle Spasms. naproxen 2021- No [id number] 500mg Take 1 [facility] 500 mg 7- 10-18 tablet by ity of tablet 00:00: 00:00 mouth [place] 00 :00 every 8 Medical (eight) Branch hours as needed for Pain (scale 4-6). cyclobenzap No [id number] 10mg Take 1 [facility] rine 10 mg 7- 10-18 tablet by ity of tablet 00:00: 00:00 mouth at [place] 00 :00 bedtime as Medical needed for Branch Muscle Spasms. ibuprofen Yes [id number] 605mg Take 30.25 [facility] 100 mg/5 mL 6-15 mL by ity of oral 00:00: mouth [place] 00 every 6 Medica l (six) Branch hours as needed for Pain (scale 4-6) or Temp > 38.5 C. ibuprofen Yes [id number] 605mg Take 30.25 [facility] 100 mg/5 mL 6-15 mL by ity of oral 00:00: mouth [place] suspension 00 every 6 Medica l (six) Branch hours as needed for Pain (scale 4-6) or Temp > 38.5 C. ibuprofen Yes [id number] 605mg Take 30.25 [facility] 100 mg/5 mL 6-15 mL by ity of oral 00:00: mouth [place] suspension 00 every 6 Medica l (six) Branch hours as needed for Pain (scale 4-6) or Temp > 38.5 C. ibuprofen 2021-0 Yes [id number] 605mg Take 30.25 [facility] 100 mg/5 mL 6-15 mL by ity of oral 00:00: mouth [place] suspension 00 every 6 Medica l (six) Branch hours as needed for Pain (scale 4-6) or Temp > 38.5 C. ibuprofen 2021-0 Yes [id number] 605mg Take 30.25 [facility] 100 mg/5 mL 6-15 mL by ity of oral 00:00: mouth [place] suspension 00 every 6 Medica l (six) Branch hours as needed for Pain (scale 4-6) or Temp > 38.5 C. ibuprofen 2021-0 Yes [id number] 605mg Take 30.25 [facility] 100 mg/5 mL 6-15 mL by ity of oral 00:00: mouth [place] suspension 00 every 6 Medica l (six) Branch hours as needed for Pain (scale 4-6) or Temp > 38.5 C. ibuprofen 2021-0 Yes [id number] 605mg Take 30.25 [facility] 100 mg/5 mL 6-15 mL by ity of oral 00:00: mouth [place] suspension 00 every 6 Medica l (six) Branch hours as needed for Pain (scale 4-6) or Temp > 38.5 C. ibuprofen 2021-0 Yes [id number] 605mg Take 30.25 [facility] 100 mg/5 mL 6-15 mL by ity of oral 00:00: mouth [place] suspension 00 every 6 Medica l (six) Branch hours as needed for Pain (scale 4-6) or Temp > 38.5 C. ibuprofen 2021-0 Yes [id number] 605mg Take 30.25 [facility] 100 mg/5 mL 6-15 mL by ity of oral 00:00: mouth [place] suspension 00 every 6 Medica l (six) Branch hours as needed for Pain (scale 4-6) or Temp > 38.5 C. ibuprofen 2021-0 Yes [id number] 605mg Take 30.25 [facility] 100 mg/5 mL 6-15 mL by ity of oral 00:00: mouth [place] suspension 00 every 6 Medica l (six) Branch hours as needed for Pain (scale 4-6) or Temp > 38.5 C. ibuprofen 202-0 Yes [id number] 605mg Take 30.25 [facility] 100 mg/5 mL 6-15 mL by ity of oral 00:00: mouth [place] suspension 00 every 6 Medica l (six) Branch hours as needed for Pain (scale 4-6) or Temp > 38.5 C. ibuprofen 2021- No [id number] 605mg Take 30.25 [facility] 100 mg/5 mL 6-15 10-18 mL by ity of oral 00:00: 00:00 mouth [place] suspension 00 :00 every 6 Medica l (six) Branch hours as needed for Pain (scale 4-6) or Temp > 38.5 C. ibuprofen 2021- No [id number] 605mg Take 30.25 [facility] 100 mg/5 mL 6-15 10-18 mL by ity of oral 00:00: 00:00 mouth [place] suspension 00 :00 every 6 Medica l (six) Branch hours as needed for Pain (scale 4-6) or Temp > 38.5 C. ibuprofen 2021- No [id number] 605mg Take 30.25 [facility] 100 mg/5 mL 6-15 10-18 mL by ity of oral 00:00: 00:00 mouth [place] suspension 00 :00 every 6 Medica l (six) Branch hours as needed for Pain (scale 4-6) or Temp > 38.5 C. ibuprofen 2021- No [id number] 605mg Take 30.25 [facility] 100 mg/5 mL 6-15 10-18 mL by ity of oral 00:00: 00:00 mouth [place] suspension 00 :00 every 6 Medica l (six) Branch hours as needed for Pain (scale 4-6) or Temp > 38.5 C. ibuprofen 2021- No [id number] 605mg Take 30.25 [facility] 100 mg/5 mL 6-15 10-18 mL by ity of oral 00:00: 00:00 mouth [place] suspension 00 :00 every 6 Medica l (six) Branch hours as needed for Pain (scale 4-6) or Temp > 38.5 C. acetaminoph 2021-2021- No [id number] 608mg Take 19 mL [facility] en 160 mg/5 6-15 08- by mouth ity of mL liquid 00:00: 00:00 every 6 [place] 00 :00 (six) Medical hours as Branch needed for Fever. acetaminoph 2021-0 2- No [id number] 608mg Take 19 mL [facility] en 160 mg/5 6-15 - by mouth ity of mL liquid 00:00: 00:00 every 6 [place] 00 :00 (six) Medical hours as Branch needed for Fever. DULoxetine 2021-0 Yes [facility] 60 mg 5-27 ity of capsule 00:00: [place] 00 Medical Branch DULoxetine 2022-0 Yes [facility] 60 mg 5-27 ity of capsule 00:00: [place] [address] Medical Branch DULoxetine 2-0 Yes [facility] 60 mg 5-27 ity of capsule 00:00: [place] [address] Medical Branch DULoxetine 2-0 Yes [facility] 60 mg 5-27 ity of capsule 00:00: [place] [address] Medical Branch DULoxetine 2022-0 Yes [facility] 60 mg 5-27 ity of capsule 00:00: [place] [address] Medical Branch DULoxetine 2-0 Yes [facility] 60 mg 5-27 ity of capsule 00:00: [place] [address] Medical Branch DULoxetine 2-0 Yes [facility] 60 mg 5-27 ity of capsule 00:00: [place] 00 Medical Branch DULoxetine 2-0 Yes [facility] 60 mg 5-27 ity of capsule 00:00: [place] [address] Medical Branch DULoxetine 2-0 Yes [facility] 60 mg 5-27 ity of capsule 00:00: [place] [address] Medical Branch DULoxetine 2-0 Yes [facility] 60 mg 5-27 ity of capsule 00:00: [place] [address] Medical Branch DULoxetine 2022-0 Yes [facility] 60 mg 5-27 ity of capsule 00:00: [place] 00 Medical Branch DULoxetine 2-0 2022- No [facility] 60 mg 5-27 10-18 ity of capsule 00:00: 00:00 [place] 00 :00 Medical Branch DULoxetine 2022-0 2022- No [facility] 60 mg 5-27 10-18 ity of capsule 00:00: 00:00 [place] 00 :00 Medical Branch DULoxetine 2022-0 2022- No [facility] 60 mg 5-27 10-18 ity of capsule 00:00: 00:00 [place] 00 :00 Medical Branch DULoxetine 2-0 2022- No [facility] s 60 mg 5-27 10-18 ity of capsule 00:00: 00:00 [place] 00 :00 Medical Branch traZODone 0 2021- No [facility] 50 mg 5-27 12-12 ity of tablet 00:00: 00:00 [place] 00 :00 Medical Branch mometasone 2021-0 Yes [id number] 1{spray Use 1 [facility] 50 5-19 } [place] in ity of mcg/actuati 00:00: each [place] on nasal 00 nostril 2 Medica l spray (two) Branch times daily. mometasone 2021-0 Yes [id number] 1{spray Use 1 [facility] 50 5-19 } [place] in ity of mcg/actuati 00:00: each [place] on nasal 00 nostril 2 Medica l spray (two) Branch times daily. mometasone 2021-0 Yes [id number] 1{spray Use 1 [facility] 50 5-19 } [place] in ity of mcg/actuati 00:00: each [place] on nasal 00 nostril 2 Medica l spray (two) Branch times daily. mometasone 2021-0 Yes [id number] 1{spray Use 1 [facility] 50 5-19 } [place] in ity of mcg/actuati 00:00: each [place] on nasal 00 nostril 2 Medica l spray (two) Branch times daily. mometasone 2021-0 Yes [id number] 1{spray Use 1 [facility] 50 5-19 } [place] in ity of mcg/actuati 00:00: each [place] on nasal 00 nostril 2 Medica l spray (two) Branch times daily. mometasone 2021-0 Yes [id number] 1{spray Use 1 [facility] 50 5-19 } [place] in ity of mcg/actuati 00:00: each [place] on nasal 00 nostril 2 Medica l spray (two) Branch times daily. mometasone 2021-0 Yes [id number] 1{spray Use 1 [facility] 50 5-19 } [place] in ity of mcg/actuati 00:00: each [place] on nasal 00 nostril 2 Medica l spray (two) Branch times daily. mometasone 2021-0 Yes [id number] 1{spray Use 1 [facility] 50 5-19 } [place] in ity of mcg/actuati 00:00: each [place] on nasal 00 nostril 2 Medica l spray (two) Branch times daily. mometasone Yes [id number] 1{spray Use 1 [facility] 50 5-19 } [place] in ity of mcg/actuati 00:00: each [place] on nasal 00 nostril 2 Medica l spray (two) Branch times daily. mometasone Yes [id number] 1{spray Use 1 [facility] 50 5-19 } [place] in ity of mcg/actuati 00:00: each [place] on nasal 00 nostril 2 Medica l spray (two) Branch times daily. mometasone Yes [id number] 1{spray Use 1 [facility] 50 5-19 } [place] in ity of mcg/actuati 00:00: each [place] on nasal 00 nostril 2 Medica l spray (two) Branch times daily. mometasone 2021- No [id number] 1{spray Use 1 [facility] 50 5-19 10-18 } [place] in ity of mcg/actuati 00:00: 00:00 each [place] on nasal 00 :00 nostril 2 Medica l spray (two) Branch times daily. mometasone 2021- No [id number] 1{spray Use 1 [facility] 50 5-19 10-18 } [place] in ity of mcg/actuati 00:00: 00:00 each [place] on nasal 00 :00 nostril 2 Medica l spray (two) Branch times daily. mometasone 2021- No [id number] 1{spray Use 1 [facility] 50 5-19 10-18 } [place] in ity of mcg/actuati 00:00: 00:00 each [place] on nasal 00 :00 nostril 2 Medica l spray (two) Branch times daily. mometasone 2021- No [id number] 1{spray Use 1 [facility] 50 5-19 10-18 } [place] in ity of mcg/actuati 00:00: 00:00 each [place] on nasal 00 :00 nostril 2 Medica l spray (two) Branch times daily. mometasone 2021- No [id number] 1{spray Use 1 [facility] 50 5-19 10-18 } [place] in ity of mcg/actuati 00:00: 00:00 each [place] on nasal 00 :00 nostril 2 Medica l spray (two) Branch times daily. cetirizine Yes [id number] 10mg Take 1 U nivers (ZYRTEC) 10 5-16 tablet by ity of mg tablet 00:00: mouth [place] 00 daily. [facility] Branch cetirizine Yes [id number] 10mg Take 1 U nivers (ZYRTEC) 10 5-16 tablet by ity of mg tablet 00:00: mouth [place] 00 daily. [facility] Branch cetirizine Yes [id number] 10mg Take 1 U nivers (ZYRTEC) 10 5-16 tablet by ity of mg tablet 00:00: mouth [place] 00 daily. [facility] Branch cetirizine Yes [id number] 10mg Take 1 U nivers (ZYRTEC) 10 5-16 tablet by ity of mg tablet 00:00: mouth [place] 00 daily. [facility] Branch cetirizine Yes [id number] 10mg Take 1 U nivers (ZYRTEC) 10 5-16 tablet by ity of mg tablet 00:00: mouth [place] 00 daily. [facility] Branch cetirizine Yes [id number] 10mg Take 1 U nivers (ZYRTEC) 10 5-16 tablet by ity of mg tablet 00:00: mouth [place] 00 daily. [facility] Branch cetirizine Yes [id number] 10mg Take 1 U nivers (ZYRTEC) 10 5-16 tablet by ity of mg tablet 00:00: mouth [place] 00 daily. [facility] Branch cetirizine Yes [id number] 10mg Take 1 U nivers (ZYRTEC) 10 5-16 tablet by ity of mg tablet 00:00: mouth [place] 00 daily. [facility] Branch cetirizine Yes [id number] 10mg Take 1 U nivers (ZYRTEC) 10 5-16 tablet by ity of mg tablet 00:00: mouth [place] 00 daily. [facility] Branch cetirizine Yes [id number] 10mg Take 1 U nivers (ZYRTEC) 10 5-16 tablet by ity of mg tablet 00:00: mouth [place] 00 daily. [facility] Branch cetirizine Yes [id number] 10mg Take 1 U nivers (ZYRTEC) 10 5-16 tablet by ity of mg tablet 00:00: mouth [place] 00 daily. Medical Branch cetirizine 2021- No [id number] 10mg Take 1 [facility] (ZYRTEC) 10 5-16 10-18 tablet by it y of mg tablet 00:00: 00:00 mouth [place] 00 :00 daily. Medical Branch cetirizine 2- No [id number] 10mg Take 1 [facility] (ZYRTEC) 10 5-16 10-18 tablet by it y of mg tablet 00:00: 00:00 mouth [place] 00 :00 daily. Medical [facility] cetirizine 2021- No [id number] 10mg Take 1 [facility] (ZYRTEC) 10 5-16 10-18 tablet by it y of mg tablet 00:00: 00:00 mouth [place] 00 :00 daily. Medical [facility] cetirizine 2021- No [id number] 10mg Take 1 [facility] (ZYRTEC) 10 5-16 10-18 tablet by it y of mg tablet 00:00: 00:00 mouth [place] 00 :00 daily. Medical [facility] cetirizine 2021- No [id number] 10mg Take 1 [facility] (ZYRTEC) 10 5-16 10-18 tablet by it y of mg tablet 00:00: 00:00 mouth [place] 00 :00 daily. Medical Branch DULoxetine 2-0 Yes [facility] 30 mg 5-09 ity of capsule 00:00: [place] 00 [facility] gabapentin 2022-0 Yes [facility] 300 mg 5-09 ity of capsule 00:00: 00 Medical Branch ondansetron 2-0 Yes Univer s 4 mg tablet 5-09 ity of 00:00: 00 Medical [facility] DULoxetine 2022-0 Yes [facility] 30 mg 5-09 ity of capsule 00:00: [place] 00 [facility] gabapentin 2022-0 Yes [facility] 300 mg 5-09 ity of capsule 00:00: 00 Medical Branch ondansetron 2-0 Yes Univer s 4 mg tablet 5-09 ity of 00:00: [place] 00 [facility] DULoxetine 2022-0 Yes [facility] 30 mg 5-09 ity of capsule 00:00: [place] 00 [facility] gabapentin 2022-0 Yes [facility] 300 mg 5-09 ity of capsule 00:00: [place] 00 [facility] ondansetron 2022-0 Yes Univer s 4 mg tablet 5-09 ity of 00:00: [place] 00 [facility] DULoxetine 2022-0 Yes [facility] 30 mg 5-09 ity of capsule 00:00: [place] 00 [facility] gabapentin 2022-0 Yes [facility] 300 mg 5-09 ity of capsule 00:00: [place] 00 [facility] ondansetron 2022-0 Yes Univer s 4 mg tablet 5-09 ity of 00:00: [place] 00 [facility] DULoxetine 2022-0 Yes [facility] 30 mg 5-09 ity of capsule 00:00: [place] 00 [facility] gabapentin 2022-0 Yes [facility] 300 mg 5-09 ity of capsule 00:00: [place] 00 [facility] ondansetron 2022-0 Yes Univer s 4 mg tablet 5-09 ity of 00:00: [place] [facility] DULoxetine 2022-0 Yes [facility] 30 mg 5-09 ity of capsule 00:00: [place] 00 [facility] gabapentin 2022-0 Yes [facility] 300 mg 5-09 ity of capsule 00:00: [place] 00 [facility] ondansetron 2022-0 Yes Univer s 4 mg tablet 5-09 ity of 00:00: [place] [id number] Medical Branch DULoxetine 2022-0 Yes [facility] 30 mg 5-09 ity of capsule 00:00: [place] 00 [facility] gabapentin 2022-0 Yes [facility] 300 mg 5-09 ity of capsule 00:00: [place] 00 [facility] ondansetron 2022-0 Yes Univer s 4 mg tablet 5-09 ity of 00:00: [place] 00 [facility] DULoxetine 2022-0 Yes [facility] 30 mg 5-09 ity of capsule 00:00: [place] 00 [facility] gabapentin 2022-0 Yes [facility] 300 mg 5-09 ity of capsule 00:00: [place] 00 [facility] ondansetron 2022-0 Yes Univer s 4 mg tablet 5-09 ity of 00:00: [place] 00 [facility] DULoxetine 2022-0 Yes [facility] 30 mg 5-09 ity of capsule 00:00: [place] 00 [facility] gabapentin 2022-0 Yes [facility] 300 mg 5-09 ity of capsule 00:00: [place] 00 [facility] ondansetron 2022-0 Yes Univer s 4 mg tablet 5-09 ity of 00:00: [place] 00 [facility] DULoxetine 2022-0 Yes [facility] 30 mg - ity of capsule 00:00: [place] 00 [facility] gabapentin 2022-0 Yes [facility] 300 mg - ity of capsule 00:00: [place] 00 [facility] ondansetron 2022-0 Yes Univer s 4 mg tablet 09-18 ity of 00:00: [place] 00 [facility] DULoxetine 2022-0 Yes [facility] 30 mg - ity of capsule 00:00: [place] 00 [facility] gabapentin 2022-0 Yes [facility] 300 mg 09-18 ity of capsule 00:00: [place] 00 [facility] ondansetron 2022-0 Yes Univer s 4 mg tablet 09-18 ity of 00:00: [place] 00 [facility] DULoxetine 2022-0 2022- No Univer s 30 mg 09-18 ity of capsule 00:00: 00:00 [place] 00 :00 Medical Branch gabapentin 2022-0 2022- No Univer s 300 mg 09-18 ity of capsule 00:00: 00:00 [place] 00 :00 Medical Branch ondansetron 2022-0 2022- No Unive rs 4 mg tablet 09-18 ity of 00:00: 00:00 [place] 00 :00 Medical Branch DULoxetine 2022-0 2022- No Univer s 30 mg 09-18 ity of capsule 00:00: 00:00 [place] 00 :00 Medical Branch gabapentin 2022-0 2022- No Univer s 300 mg 09-18 ity of capsule 00:00: 00:00 [place] 00 :00 Medical Branch ondansetron 2022-0 2022- No Unive rs 4 mg tablet 09-18 ity of 00:00: 00:00 [place] 00 :00 Medical Branch DULoxetine 2022-0 2022- No Univer s 30 mg 09-18- ity of capsule 00:00: 00:00 [place] 00 :00 Medical Branch gabapentin 2022-0 2022- No Univer s 300 mg 09-18- ity of capsule 00:00: 00:00 [place] 00 :00 Medical Branch ondansetron 2022-0 2022- No Unive rs 4 mg tablet 09-18- ity of 00:00: 00:00 [place] 00 :00 Medical Branch DULoxetine 2022-0 2022- No Univer s 30 mg 09-18 ity of capsule 00:00: 00:00 [place] 00 :00 Medical Branch gabapentin 2022-0 2022- No Univer s 300 mg 09-18 ity of capsule 00:00: 00:00 [place] 00 :00 Medical Branch ondansetron 2022-0 2022- No Unive rs 4 mg tablet 09-18 ity of 00:00: 00:00 [place] 00 :00 Medical Branch DULoxetine 2022-0 2022- No Univer s 30 mg 09-18 ity of capsule 00:00: 00:00 [place] 00 :00 Medical Branch gabapentin 2022-0 2022- No Univer s 300 mg 09-18 ity of capsule 00:00: 00:00 [place] 00 :00 Medical Branch ondansetron 2022-0 2- No Unive rs 4 mg tablet 09-18 ity of 00:00: 00:00 [place] 00 :00 Medical Branch amLODIPine 2022-0 Yes [facility] 5 mg tablet 4-22 ity of 00:00: [place] [facility] amLODIPine 2022-0 Yes 5mg Take 5 mg Un sushant 5 mg tablet 4-22 by mouth. ity of 00:00: [place] [facility] amLODIPine 2022-0 Yes [facility] 5 mg tablet 4-22 ity of 00:00: [place] [facility] amLODIPine 2022-0 Yes 5mg Take 5 mg Un sushant 5 mg tablet 4-22 by mouth. ity of 00:00: [place] [facility] amLODIPine 2022-0 Yes [facility] 5 mg tablet 4-22 ity of 00:00: [place] [facility] amLODIPine 2022-0 Yes 5mg Take 5 mg Un sushant 5 mg tablet 4-22 by mouth. ity of 00:00: [place] [facility] amLODIPine 2022-0 Yes [facility] 5 mg tablet 4-22 ity of 00:00: [place] [address] Medical Branch amLODIPine 2022-0 Yes 5mg Take 5 mg Un sushant 5 mg tablet 4-22 by mouth. ity of 00:00: [place] [facility] amLODIPine 2022-0 Yes [facility] 5 mg tablet 4-22 ity of 00:00: [place] [facility] amLODIPine 2022-0 Yes 5mg Take 5 mg Un sushant 5 mg tablet 4-22 by mouth. ity of 00:00: [place] [facility] amLODIPine 2022-0 Yes [facility] 5 mg tablet 4-22 ity of 00:00: [place] [facility] amLODIPine 2022-0 Yes 5mg Take 5 mg Un sushant 5 mg tablet 4-22 by mouth. ity of 00:00: [place] [facility] amLODIPine 2022-0 Yes [facility] 5 mg tablet 4-22 ity of 00:00: [place] [facility] amLODIPine 2022-0 Yes 5mg Take 5 mg Un sushant 5 mg tablet 4-22 by mouth. ity of 00:00: [place] [facility] amLODIPine 2022-0 Yes [facility] 5 mg tablet 4-22 ity of 00:00: [place] [facility] amLODIPine 2022-0 Yes 5mg Take 5 mg Un sushant 5 mg tablet 4-22 by mouth. ity of 00:00: [place] [facility] amLODIPine 2022-0 Yes [facility] 5 mg tablet 4-22 ity of 00:00: [place] [facility] amLODIPine 2022-0 Yes 5mg Take 5 mg Un sushant 5 mg tablet 4-22 by mouth. ity of 00:00: [place] [facility] amLODIPine 2-0 Yes [facility] 5 mg tablet 4-22 ity of 00:00: [place] [facility] amLODIPine 2022-0 Yes 5mg Take 5 mg Un sushant 5 mg tablet 4-22 by mouth. ity of 00:00: [place] [facility] amLODIPine 2022-0 Yes [facility] 5 mg tablet 4-22 ity of 00:00: [place] [facility] amLODIPine 2022-0 Yes 5mg Take 5 mg Un sushant 5 mg tablet 4-22 by mouth. ity of 00:00: [place] [facility] amLODIPine 2022-0 2022- No Univer s 5 mg tablet -02-27 ity of 00:00: 00:00 [place] 00 :00 Medical Branch amLODIPine 2022-0 2022- No 5mg Take 5 mg U nivers 5 mg tablet -22 02-27 by mouth. it y of 00:00: 00:00 [place] 00 :00 Medical Branch amLODIPine 2022-0 2022- No Univer s 5 mg tablet -22 02-27 ity of 00:00: 00:00 [place] 00 :00 Medical Branch amLODIPine 2-0 2022- No 5mg Take 5 mg U nivers 5 mg tablet 09-01 by mouth. it y of 00:00: 00:00 [place] 00 :00 Medical Branch amLODIPine 2022-0 2022- No Univer s 5 mg tablet 09-01 ity of 00:00: 00:00 [place] 00 :00 Medical Branch amLODIPine 2022-0 2022- No 5mg Take 5 mg U nivers 5 mg tablet 09-01 by mouth. it y of 00:00: 00:00 [place] 00 :00 Medical Branch amLODIPine 2022-0 2022- No Univer s 5 mg tablet 09-01 ity of 00:00: 00:00 [place] 00 :00 Medical Branch amLODIPine 2022-0 2022- No 5mg Take 5 mg U nivers 5 mg tablet 09-01 by mouth. it y of 00:00: 00:00 [place] 00 :00 Medical Branch amLODIPine 2022-0 2022- No Univer s 5 mg tablet 09-01 ity of 00:00: 00:00 [place] 00 :00 Medical Branch amLODIPine 2-0 2022- No 5mg Take 5 mg U nivers 5 mg tablet 09-01 by mouth. it y of 00:00: 00:00 [place] 00 :00 Medical Branch buPROPion 2021-0 Yes [...] 00:00: 04:59 mouth. [place] tablet 00 :00 [facility] Branch buPROPion 2022- No 150mg Take 150 [...] 00 :00 Medical Branch proMETHazin 2021- No [id number] 25mg Take 1 [facility] e 25 mg [...] Indication s: acute pain proMETHazin 2021-2021- No [id number] 25mg Take 1 [facility] e 25 mg [...] Indication s: acute pain proMETHazin 2021- No [id number] 25mg Take 1 [facility] e 25 mg [...] Indication s: acute pain cyclobenzap 2021- No [id number] 10mg Take 1 [facility] rine 10 mg 08-07 tablet by ity of tablet 00:00: 04:59 mouth 3 [place] 00 :00 (three) Medical times Branch daily for 14 days. ibuprofen 2021- No [id number] 800mg Take 1 [facility] 800 mg 08-07- [...] SR 08-01 ity of tablet 00:00: 00:00 [place] 00 :00 Medical Branch diclofenac 2021- No Univer s 75 mg EC 08-01- ity of tablet 00:00: 00:00 [place] 00 :00 Medical Branch orphenadrin 2021- No Unive rs e 100 mg SR 08-01- ity of tablet 00:00: 00:00 [place] 00 :00 Medical Branch divalproex 2021- No [id number] 125mg Take 1 [facility] 125 mg EC 07-21 tablet by ity of tablet 00:00: 00:00 mouth [place] 00 :00 every 12 Medical (twelve) Branch hours. divalproex 2021- No Univer s Sprinkles 07-21- ity of 125 mg 00:00: 00:00 [place] SPRINK 00 :00 Medical capsule Branch divalproex 2021- No [id number] 125mg Take 1 [facility] 125 mg EC 07-21- tablet by ity of tablet 00:00: 00:00 mouth [place] 00 :00 every 12 Medical (twelve) Branch hours. divalproex 2021- No Univer s Sprinkles 07-21-03 ity of 125 mg 00:00: 00:00 [place] SPRINKLE 00 :00 Medical capsule Branch divalproex 2021- No [id number] 125mg Take 1 [facility] 125 mg EC 07-21- tablet by ity of tablet 00:00: 00:00 mouth [place] 00 :00 every 12 Medical (twelve) Branch hours. ibuprofen 2021- No [id number] 600mg Take 1 [facility] 600 mg 07-17 [...] PAIN FOR 2 DAYS fluticasone 2021- No [id number] 2{puff} Inhale 2 [facility] propionate 1-19 05-19 Puffs ity of 110 00:00: 00:00 every 12 [place] mcg/actuati 00 :00 (twelve) Medi yessi on inhaler hours. Branch fluticasone 2021- No [id number] 2{puff} Inhale 2 [facility] propionate 1-19 05-19 Puffs ity of 110 00:00: 00:00 every 12 [place] mcg/actuati 00 :00 (twelve) Medi yessi on inhaler hours. Branch fluticasone 2021- No [id number] 2{puff} Inhale 2 [facility] propionate 1-19 05-19 Puffs ity of 110 00:00: 00:00 every 12 [place] mcg/actuati 00 :00 (twelve) Medi yessi on inhaler hours. Branch fluticasone 2021- No [id number] 2{puff} Inhale 2 [facility] propionate 1-19 05-19 Puffs ity of 110 00:00: 00:00 every 12 [place] mcg/actuati 00 :00 (twelve) Medi yessi on inhaler hours. Branch benzonatate 2021- No [id number] 100mg Take 1 [facility] (TESSALON 113 05-16 capsule by [place]) 100 00:00: 00:00 [place] mg capsule 00 :00 every 8 Medica l (eight) Branch hours as needed for Cough. benzonatate 2021- No [id number] 100mg Take 1 [facility] (TESSALON 113 05-16 capsule by [place]) 100 00:00: 00:00 [place] mg capsule 00 :00 every 8 Medica l (eight) Branch hours as needed for Cough. benzonatate 2021- No [id number] 100mg Take 1 [facility] (TESSALON 113 05-16 capsule by ankush REUBEN) 100 00:00: 00:00 mouth [place] mg capsule 00 :00 every 8 Medica l (eight) Branch hours as needed for Cough. benzonatate 2021- No [id number] 100mg Take 1 [facility] (TESSALON 113 05-16 [...] ity of tablet 00:00: 00:00 mouth 2 [place] 00 :00 (two) Medical times Branch daily with meals. losartan 50 2020-05- No 50mg Take 1 Uni vers mg tablet 2-30 10-18 tablet by ity of 00:00: 00:00 mouth 2 [place] 00 :00 (two) Medical times Branch daily. carvediloL 2020-2021- No 25mg Take 1 Univ ers 25 mg 2-30 10-18 tablet by ity of tablet 00:00: 00:00 mouth 2 [place] 00 :00 (two) Medical times Branch daily with meals. losartan 50 2020-05- No 50mg Take 1 Uni vers mg tablet 2-30 10-18 tablet by ity of 00:00: 00:00 mouth 2 [place] 00 :00 (two) Medical times Branch daily. carvediloL 2020-05- No 25mg Take 1 Univ ers 25 mg 2-30 10-18 tablet by ity of tablet 00:00: 00:00 mouth 2 [place] 00 :00 (two) Medical times Branch daily with meals. losartan 50 2020-05- No 50mg Take 1 Uni vers mg tablet 2-30 10-18 tablet by ity of 00:00: 00:00 mouth 2 [place] 00 :00 (two) Medical times Branch daily. carvediloL 2020-2021- No 25mg Take 1 Univ ers 25 mg 2-30 10-18 tablet by ity of tablet 00:00: 00:00 mouth 2 [place] 00 :00 (two) Medical times Branch daily with meals. losartan 50 2020-05- No 50mg Take 1 [facility] vers mg tablet 2-30 10-18 tablet by ity of 00:00: 00:00 mouth 2 [place] 00 :00 (two) Medical times Branch daily. carvediloL 2020-05- No 25mg Take 1 Univ ers 25 mg 2-30 10-18 tablet by ity of tablet 00:00: 00:00 mouth 2 [place] 00 :00 (two) Medical times Branch daily with meals. losartan 50 2020-05- No 50mg Take 1 [facility] vers mg tablet 2-30 10-18 tablet by ity of 00:00: 00:00 mouth 2 [place] 00 :00 (two) Medical times Branch daily. carvediloL 2020-05- No 25mg Take 1 Univ ers 25 mg 2-30 10-18 tablet by ity of tablet 00:00: 00:00 mouth 2 [place] 00 :00 (two) Medical times Branch daily with meals. losartan 50 2020-05- No 50mg Take 1 Uni vers mg tablet 2-30 10-18 tablet by ity of 00:00: 00:00 mouth 2 [place] 00 :00 (two) Medical times Branch daily. carvediloL 2020-2021- No 25mg Take 1 Univ ers 25 mg 2-30 10-18 tablet by ity of tablet 00:00: 00:00 mouth 2 [place] 00 :00 (two) Medical times Branch daily with meals. losartan 50 2020-05- No 50mg Take 1 Uni vers mg tablet 2-30 10-18 tablet by ity of 00:00: 00:00 mouth 2 [place] 00 :00 (two) Medical times Branch daily. carvediloL 2020-05- No 25mg Take 1 Univ ers 25 mg 2-30 10-18 tablet by ity of tablet 00:00: 00:00 mouth 2 [place] 00 :00 (two) Medical times Branch daily with meals. losartan 50 2020-05- No 50mg Take 1 Uni vers mg tablet 2-30 10-18 tablet by ity of 00:00: 00:00 mouth 2 [place] 00 :00 (two) Medical times Branch daily. carvediloL 2020-05- No 25mg Take 1 Univ ers 25 mg 2-30 10-18 tablet by ity of tablet 00:00: 00:00 mouth 2 [place] 00 :00 (two) Medical times Branch daily with meals. losartan 50 2020-05- No 50mg Take 1 Uni vers mg tablet 2-30 10-18 tablet by ity of 00:00: 00:00 mouth 2 [place] 00 :00 (two) Medical times Branch daily. carvediloL 2020-05- No 25mg Take 1 Univ ers 25 mg 2-30 10-18 tablet by ity of tablet 00:00: 00:00 mouth 2 [place] 00 :00 (two) Medical times Branch daily with meals. losartan 50 2020-05- No 50mg Take 1 Uni vers mg tablet 2-30 10-18 tablet by ity of 00:00: 00:00 mouth 2 [place] 00 :00 (two) Medical times Branch daily. [...] 00 :00 Medical Branch methocarbam 2020-05- No [id number] 500mg Take 1 Univers oL 07-03-13 tablet by ity of (ROBAXIN) 00:00: 00:00 mouth [place] 500 mg 00 :00 every 6 Medical tablet (six) Branch hours as needed (MUSCLE SPASM). vitamin 2020-05- No [id number] 500ug Take 1 U nivers B-12 05-18 tablet by ity of (VITAMIN 00:00: 00:00 mouth [place] B-12) 500 00 :00 daily. Medical mcg tablet Branch vitamin 2020-05- No [id number] 500ug Take 1 U nivers B-12 05-18 tablet by ity of (VITAMIN 00:00: 00:00 mouth [place] B-12) 500 00 :00 daily. Medical mcg tablet Branch vitamin 2020-05- No [id number] 500ug Take 1 U nivers B-12 05-18 tablet by ity of (VITAMIN 00:00: 00:00 mouth [place] B-12) 500 00 :00 daily. Medical mcg tablet Branch vitamin 2020-05- No [id number] 500ug Take 1 U nivers B-12 05-18 tablet by ity of (VITAMIN 00:00: 00:00 mouth [place] B-12) 500 00 :00 daily. Medical mcg tablet Branch vitamin 2020-05- No [id number] 500ug Take 1 U nivers B-12 05-18 tablet by ity of (VITAMIN 00:00: 00:00 mouth [place] B-12) 500 00 :00 daily. Medical mcg tablet Branch vitamin 2020-05- No [id number] 500ug Take 1 U nivers B-12 05-18 tablet by ity of (VITAMIN 00:00: 00:00 mouth [place] B-12) 500 00 :00 daily. Medical mcg tablet Branch vitamin 2020-05- No [id number] 500ug Take 1 U nivers B-12 05-18 tablet by ity of (VITAMIN 00:00: 00:00 mouth [place] B-12) 500 00 :00 daily. Medical mcg tablet Branch methylPREDN 2020-05- No [id number] Follow Univers ISolone 4 05-16 package ity of mg tablets 00:00: 00:00 directions [place] 00 :00 Medical Branch methylPREDN 2020-05- No [id number] Follow Univers ISolone 4 05-16 package ity of mg tablets 00:00: 00:00 directions 00 :00 Medical Branch methylPREDN 2020-05- No [id number] Follow Univers ISolone 4 05-16 package ity of mg tablets 00:00: 00:00 directions 00 :00 Medical Branch fluticasone 2021- No [id number] 2{puff} Inhale 2 [facility] propion-hcel 02-09-13 Puffs 2 ity of meteroL 00:00: 00:00 (two) [place] 115- 00 :00 times Medical mcg/actuati daily. Branch on inhaler Rinse mouth after each use. albuterol 2021- No [id number] 2.5mg Inhale 3 Univers 2.5 mg /3 02-09-13 mL every 6 ity of mL (0.083 00:00: 00:00 (six) [place] %) 00 :00 hours as Medical nebulizer needed for Bran ch solution Wheezing or Shortness of Breath. fluticasone 2021- No [id number] 2{puff} Inhale 2 Univers propion-chel 9-30 -13 Puffs 2 ity of meteroL 00:00: 00:00 (two) [place] 115- 00 :00 times Medical mcg/actuati daily. Branch on inhaler Rinse mouth after each use. albuterol 2021- No [id number] 2.5mg Inhale 3 Univers 2.5 mg /3 02-09-13 mL every 6 ity of mL (0.083 00:00: 00:00 (six) [place] %) 00 :00 hours as Medical nebulizer needed for Bran ch solution Wheezing or Shortness of Breath. fluticasone 2021- No [id number] 2{puff} Inhale 2 [facility] propion-chel 9-30 -13 Puffs 2 ity of meteroL 00:00: 00:00 (two) [place] 115-21 00 :00 times Medical mcg/actuati daily. Branch on inhaler Rinse mouth after each use. albuterol 2021- No [id number] 2.5mg Inhale 3 Univers 2.5 mg /3 02-09-13 mL every 6 ity of mL (0.083 00:00: 00:00 (six) [place] %) 00 :00 hours as Medical nebulizer needed for Bran ch solution Wheezing or Shortness of Breath. fluticasone 2021- No [id number] 2{puff} Inhale 2 Univers propion-chel 02-09 01-13 Puffs 2 ity of meteroL 00:00: 00:00 (two) [place] 115-21 00 :00 times Medical mcg/actuati daily. Branch on inhaler Rinse mouth after each use. albuterol 2021- No [id number] 2.5mg Inhale 3 Univers 2.5 mg /3 02-0913 mL every 6 ity of mL (0.083 00:00: 00:00 (six) [place] %) 00 :00 hours as Medical nebulizer needed for Bran ch solution Wheezing or Shortness of Breath. methocarbam 2020- No [id number] 500mg Take 1 [facility] oL 02-09 tablet by ity of (ROBAXIN) 00:00: 00:00 mouth [place] 500 mg 00 :00 every 6 Medical tablet (six) Branch hours as needed (MUSCLE SPASM). methocarbam 2020- No [id number] 500mg Take 1 [facility] oL 02-09 tablet by ity of (ROBAXIN) 00:00: 00:00 mouth [place] 500 mg 00 :00 every 6 Medical tablet (six) Branch hours as needed (MUSCLE SPASM). bromphenira 2020- No [id number] 5mL Take 5 mL Univers mine-pseudo 01-31 by mouth 4 i ty of ephedrine-D 00:00: 00:00 (four) [place] as M (BROMFED 00 :00 times Medical DM) 2-30-10 daily as Bran ch mg/5 mL needed for syrup Cough. methylPREDN 2020- No [id number] Take by [facility] ISolone 01-20 mouth ity of (MEDROL, 00:00: 00:00 [place]-INSTRU [place] 4 mg 00 :00 CTIONS. Medica l tablets follow Branch package directions methylPREDN 2020- No [id number] Take by [facility] 01-20 mouth ity of (MEDROL, 00:00: 00:00 [place] 4 mg 00 :00 CTIONS. Medica l tablets follow Branch package directions methylPREDN 2020- No [id number] Take by [facility] 01-20 mouth ity of (MEDROL, 00:00: 00:00 [place]INSTRU [place] 4 mg 00 :00 CTIONS. Medica l tablets follow Branch package directions albuterol 2021- No [id number] 2{puff} Inhale 2 [place] [address] 01-12 [id number] Puffs ity of mcg/actuati 00:00: 00:00 every 4 [place] on inhaler 00 :00 (four) Medical hours as Branch needed for Wheezing or Shortness of Breath. albuterol 2021- No [id number] 2{puff} Inhale 2 [place] [address] 01-12 [id number] Puffs ity of mcg/actuati 00:00: 00:00 every 4 [place] on inhaler 00 :00 (four) Medical hours as Branch needed for Wheezing or Shortness of Breath. albuterol 2021- No [id number] 2{puff} Inhale 2 [place] [address] 01-12 [id number] Puffs ity of mcg/actuati 00:00: 00:00 every 4 [place] inhaler 00 :00 (four) Medical hours as Branch needed for Wheezing or Shortness of Breath. albuterol 2021- No [id number] 2{puff} Inhale 2 [place] [address] 01-12 [id number] Puffs ity of mcg/actuati 00:00: 00:00 every 4 [place] inhaler 00 :00 (four) Medical hours as Branch needed for Wheezing or Shortness of Breath. albuterol 2021- No [id number] 2{puff} Inhale 2 [place] [address] 01-12 [id number] Puffs ity of mcg/actuati 00:00: 00:00 every 4 [place] inhaler 00 :00 (four) Medical hours as Branch needed for Wheezing or Shortness of Breath. albuterol 2021- No [id number] 2{puff} Inhale 2 Univers 90 01-12 [id number] Puffs ity of mcg/actuati 00:00: 00:00 every 4 [place] inhaler 00 :00 (four) Medical hours as Branch needed for Wheezing or Shortness of Breath. albuterol 2021- No [id number] 2{puff} Inhale 2 [facility] 90 01-12 [id number] Puffs ity of mcg/actuati 00:00: 00:00 every 4 [place] inhaler 00 :00 (four) Medical hours as Branch needed for Wheezing or Shortness of Breath. benzonatate 2020- No [id number] 100mg Take 1 [facility] 100 mg 01-12 [id number] capsule by ity of capsule 00:00: 00:00 mouth 3 [place] 00 :00 (three) Medical times Branch daily as needed for Cough. benzonatate 2020- No [id number] 100mg Take 1 [facility] 100 mg 01-12 [id number] capsule by ity of capsule 00:00: 00:00 mouth 3 [place] 00 :00 (three) Medical times Branch daily as needed for Cough. benzonatate 2020- No [id number] 100mg Take 1 [facility] 100 mg 01-12 [id number] capsule by ity of capsule 00:00: 00:00 mouth 3 [place] 00 :00 (three) Medical times Branch daily [...] mg 11-21 ity of tablet 00:00: 00:00 [place] 00 :00 Medical Branch OXcarbazepi 2020- No Unive rs ne 150 mg 11-2130 ity of tablet 00:00: 00:00 [place] 00 :00 Medical Branch OXcarbazepi 2020- No Unive rs ne 150 mg 11-2130 ity of tablet 00:00: 00:00 [place] 00 :00 Medical Branch OXcarbazepi 2020- No Unive rs ne 150 mg 11-21 ity of tablet 00:00: 00:00 [place] 00 :00 Medical Branch FLUoxetine No Univer s 40 mg 11-21 ity of capsule 00:00: 00:00 [place] 00 :00 Medical Branch traZODone 2020- No Univers 100 mg 11-21 ity of tablet 00:00: 00:00 [place] 00 :00 Medical Branch dicyclomine 2020- No [id number] 20mg Take 1 [facility] 20 mg 10-20-16 tablet by ity of tablet 00:00: 00:00 mouth 4 [place] 00 :00 (four) Medical times Branch daily. proMETHazin 2020- No [id number] 25mg Take 1 Univers e 25 mg [...] Branch NEEDED FOR PAIN oxybutynin 2020- No [id number] 10mg Take 1 Univers (DITROPAN 5-30 08-16 tablet by ity of XL) 10 mg 00:00: 00:00 mouth [place] 24 hr 00 :00 daily. Medical tablet Branch ondansetron 2020-0 2020- No [id number] 4mg Take 1 Univers (ZOFRAN 5-30 08-16 tablet by ity of ODT) 4 mg 00:00: 00:00 mouth [place] disintegrat 00 :00 every 8 Medic al ing tablet (eight) Branch hours as needed for Nausea and Vomiting (N/V). oxybutynin 2020-0 2020- No [id number] 10mg Take 1 Univers (DITROPAN 5-30 08-16 tablet by ity of XL) 10 mg 00:00: 00:00 mouth [place] 24 hr 00 :00 daily. Medical tablet Branch ondansetron 2020-0 2020- No [id number] 4mg Take 1 [facility] (ZOFRAN 5-30 08-16 tablet by ity of ODT) 4 mg 00:00: 00:00 mouth [place] disintegrat 00 :00 every 8 Medic al ing tablet (eight) Branch hours as needed for Nausea and Vomiting (N/V). oxybutynin 2020-0 2020- No [id number] 10mg Take 1 Univers (DITROPAN 5-30 08-16 tablet by ity of XL) 10 mg 00:00: 00:00 mouth [place] 24 hr 00 :00 daily. Medical tablet Branch ondansetron 2020-2020- No [id number] 4mg Take 1 [facility] (ZOFRAN 5-30 08-16 tablet by ity of ODT) 4 mg 00:00: 00:00 mouth [place] disintegrat 00 :00 every 8 Medic al ing tablet (eight) Branch hours as needed for Nausea and Vomiting (N/V). oxybutynin 2020-0 2020- No [id number] 10mg Take 1 [facility] (DITROPAN 5-30 08-16 tablet by ity of XL) 10 mg 00:00: 00:00 mouth [place] 24 hr 00 :00 daily. Medical tablet Branch ondansetron 2020-0 2020- No [id number] 4mg Take 1 [facility] (ZOFRAN 5-30 08-16 tablet by ity of ODT) 4 mg 00:00: 00:00 mouth [place] disintegrat 00 :00 every 8 Medic al ing tablet (eight) Branch hours as needed for Nausea and Vomiting (N/V). ciprofloxac 2020- No [id number] 500mg Take 1 [facility] in HCl 500 5-30 -13 tablet by it[facility] mg tablet 00:00: 00:[place] mouth [place] 00 :[place] (two) Medical times Branch daily. ciprofloxac 2020- No [id number] 500mg Take 1 [facility] in HCl 500 5-30 -13 tablet by [facility] mg tablet 00:00: 00:00 mouth [place] 00 :[place] (two) Medical times Branch daily. ciprofloxac 2020- No [id number] 500mg Take 1 [facility] in HCl 500 5-30 -13 tablet by [facility] mg tablet 00:00: 00:00 mouth [place] 00 :[place] (two) Medical times Branch daily. predniSONE 2020- No [id number] 20mg Take 1 [facility] 20 mg 5-25 -13 tablet by ity of tablet 00:00: 00:00 mouth [place] 00 :00 daily. Medical Days 1-2: Branch 3 pills (60 mg). Days 3-4: 2 pills (40 mg). Days 5-6: 1 pill (20 mg). Days 7-8: 1/2 pill (10 mg). Then stop predniSONE 2020- No [id number] 20mg Take 1 [facility] 20 mg 5-25 -13 tablet by ity of tablet 00:00: 00:00 mouth [place] 00 :00 daily. Medical Days 1-2: Branch 3 pills (60 mg). Days 3-4: 2 pills (40 mg). Days 5-6: 1 pill (20 mg). Days 7-8: 1/2 pill (10 mg). Then stop predniSONE 2020- No [id number] 20mg Take 1 [facility] 20 mg 5-25 07-13 tablet by ity of tablet 00:00: 00:00 mouth [place] 00 :00 daily. Medical Days 1-2: Branch 3 pills (60 mg). Days 3-4: 2 pills (40 mg). Days 5-6: 1 pill (20 mg). Days 7-8: 1/2 pill (10 mg). Then stop predniSONE 2020- No [id number] 20mg Take 1 [facility] 20 mg 5-25 07-13 tablet by ity of tablet 00:00: 00:00 mouth [place] 00 :00 daily. Medical Days 1-2: Branch 3 pills (60 mg). Days 3-4: 2 pills (40 mg). Days 5-6: 1 pill (20 mg). Days 7-8: 1/2 pill (10 mg). Then stop predniSONE 2020- No [id number] 20mg Take 1 [facility] 20 mg 5-25 07-13 tablet by ity of tablet 00:00: 00:00 mouth [place] 00 :00 daily. Medical Days 1-2: Branch 3 pills (60 mg). Days 3-4: 2 pills (40 mg). Days 5-6: 1 pill (20 mg). Days 7-8: 1/2 pill (10 mg). Then stop predniSONE 2020- No [id number] 20mg Take 1 [facility] 20 mg 5-25 07-13 tablet by ity of tablet 00:00: 00:00 mouth [place] 00 :00 daily. Medical Days 1-2: Branch 3 pills (60 mg). Days 3-4: 2 pills (40 mg). Days 5-6: 1 pill (20 mg). Days 7-8: 1/2 pill (10 mg). Then stop predniSONE 2020- No [id number] 20mg Take 1 [facility] 20 mg 5-25 07-13 tablet by ity of tablet 00:00: 00:00 mouth [place] 00 :00 daily. Medical Days 1-2: Branch 3 pills (60 mg). Days 3-4: 2 pills (40 mg). Days 5-6: 1 pill (20 mg). Days 7-8: 1/2 pill (10 mg). Then stop predniSONE 2020- No [id number] 20mg Take 1 [facility] 20 mg 5-25 07-13 tablet by ity of tablet 00:00: 00:00 mouth [place] 00 :00 daily. Medical Days 1-2: Branch 3 pills (60 mg). Days 3-4: 2 pills (40 mg). Days 5-6: 1 pill (20 mg). Days 7-8: 1/2 pill (10 mg). Then stop predniSONE 2020- No [id number] 20mg Take 1 [facility] 20 mg -11-22 tablet by ity of tablet 00:00: 00:00 mouth [place] 00 :00 daily. Medical Days 1-2: Branch 3 pills (60 mg). Days 3-4: 2 pills (40 mg). Days 5-6: 1 pill (20 mg). Days 7-8: 1/2 pill (10 mg). Then stop predniSONE 2020- No [id number] 20mg Take 1 [facility] 20 mg 5-25 - tablet by ity of tablet 00:00: 00:00 mouth [place] 00 :00 daily. Medical Days 1-2: Branch 3 pills (60 mg). Days 3-4: 2 pills (40 mg). Days 5-6: 1 pill (20 mg). Days 7-8: 1/2 pill (10 mg). Then stop mupirocin 2 2020- No [id number] Apply to Univers % ointment 5-20 - both ity of 00:00: 00:00 nostrils [place] 00 :00 at [facility] mupirocin 2 2020- No [id number] Apply to Univers % ointment 5-20 - both ity of 00:00: 00:00 nostrils [place] 00 :00 at [facility] mupirocin 2 2020- No [id number] Apply to Univers % ointment 5-20 - both ity of 00:00: 00:00 nostrils [place] 00 :00 at [facility] mupirocin 2 2020- No [id number] Apply to Univers % ointment 5-20 - both ity of 00:00: 00:00 nostrils [place] 00 :00 at [facility] mupirocin 2 2020- No [id number] Apply to Univers % ointment 5-20 - both ity of 00:00: 00:00 nostrils [place] 00 :00 at [facility] mupirocin 2 2020- No [id number] Apply to Univers % ointment 5-20 - both ity of 00:00: 00:00 [facility]rils [place] [facility] 2 2020- No [id number] Apply to Univers % ointment 5-20 08-16 both ity of 00:00: 00:00 nostrils [place] 00 :00 at bedtime Medical Branch mupirocin 2 2020- No [id number] Apply to Univers % ointment 5-20 08-16 both ity of 00:00: 00:00 nostrils [place] 00 :00 at bedtime Medical Branch mupirocin 2 2020- No [id number] Apply to Univers % ointment 5-20 08-16 both ity of 00:00: 00:00 nostrils [place] 00 :00 at bedtime Medical Branch mupirocin 2 2020- No [id number] Apply to Univers % ointment 5-20 08-16 both ity of 00:00: 00:00 nostrils [place] 00 :00 at bedtime Medical Branch mupirocin 2 2020- No [id number] Apply to Univers % ointment 5-20 08-16 both ity of 00:00: 00:00 nostrils [place] [facility] naproxen 2020- No [id number] 550mg Take 1 U nivers sodium 09-28-16 tablet by ity of (ANAPROX 00:00: 00:00 mouth 2 [place] DS) 550 mg 00 :00 (two) Medical tablet times Branch daily with meals. naproxen 2020- No [id number] 550mg Take 1 U nivers sodium 09-28-16 tablet by ity of (ANAPROX 00:00: 00:00 mouth 2 [place] DS) 550 mg 00 :00 (two) Medical tablet times Branch daily with meals. naproxen 2020- No [id number] 550mg Take 1 U nivers sodium -29 12-16 tablet by ity of (ANAPROX 00:00: 00:00 mouth 2 [place] DS) 550 mg 00 :00 (two) Medical tablet times Branch daily with meals. naproxen 2020- No [id number] 550mg Take 1 U nivers sodium 09-28-16 tablet by ity of (ANAPROX 00:00: 00:00 mouth 2 [place] DS) 550 mg 00 :00 (two) Medical tablet times Branch daily with meals. naproxen No [id number] 550mg Take 1 U nivers sodium 5-19 08-16 tablet by ity of (ANAPROX 00:00: 00:00 mouth 2 [place] DS) 550 mg 00 :00 (two) Medical tablet times Branch daily with meals. naproxen No [id number] 550mg Take 1 U nivers sodium 5-19 08-16 tablet by ity of (ANAPROX 00:00: 00:00 mouth 2 [place] DS) 550 mg 00 :00 (two) Medical tablet times Branch daily with meals. naproxen No [id number] 550mg Take 1 U nivers sodium 5-19 08-16 tablet by ity of (ANAPROX 00:00: 00:00 mouth 2 [place] DS) 550 mg 00 :00 (two) Medical tablet times Branch daily with meals. naproxen No [id number] 550mg Take 1 U nivers sodium 5-19 08-16 tablet by ity of (ANAPROX 00:00: 00:00 mouth 2 [place] DS) 550 mg 00 :00 (two) Medical tablet times Branch daily with meals. naproxen No [id number] 550mg Take 1 U nivers sodium 5-19 08-16 tablet by ity of (ANAPROX 00:00: 00:00 mouth 2 [place] DS) 550 mg 00 :00 (two) Medical tablet times Branch daily with meals. naproxen 2020- No [id number] 550mg Take 1 U nivers sodium 5-19 08-16 tablet by ity of (ANAPROX 00:00: 00:00 mouth 2 [place] DS) 550 mg 00 :00 (two) Medical tablet times Branch daily with meals. naproxen 2020- No [id number] 550mg Take 1 U nivers sodium 5-19 08-16 tablet by ity of (ANAPROX 00:00: 00:00 mouth 2 [place] DS) 550 mg 00 :00 (two) Medical tablet times Branch daily with meals. losartan 25 2021-0 2021- No 25mg Take 1 Uni vers mg tablet 09-16 tablet by ity of 00:00: 00:00 mouth 2 [place] 00 :00 (two) Medical times Branch daily. nadoloL 2020- No [id number] Please Univers mg tablet 09-16 take ity of 00:00: 00:00 Nadalol 40 [place] 00 :00 mg QA Medical Branch losartan 25 2020- No 25mg Take 1 Uni vers mg tablet 09-16 tablet by ity of 00:00: 00:00 mouth 2 [place] 00 :00 (two) Medical times Branch daily. nadoloL 2020- No [id number] Please Univers mg tablet 09-16 take ity of 00:00: 00:00 Nadalol 40 [place] 00 :00 mg QA Medical Branch losartan 25 2020- No 25mg Take 1 [facility] vers mg tablet 09-16 tablet by ity of 00:00: 00:00 mouth 2 [place] 00 :00 (two) Medical times Branch daily. nadoloL 2020- No [id number] Please Univers mg tablet 09-16 take ity of 00:00: 00:00 Nadalol 40 [place] 00 :00 mg QA Medical Branch losartan 25 2020- No 25mg Take 1 Uni vers mg tablet 09-16 tablet by ity of 00:00: 00:00 mouth 2 [place] 00 :00 (two) Medical times Branch daily. nadoloL 2020- No [id number] Please Univers mg tablet 09-16 take ity of 00:00: 00:00 Nadalol 40 [place] 00 :00 mg QA Medical Branch losartan 25 2020- No 25mg Take 1 [facility] vers mg tablet 09-16 tablet by ity of 00:00: 00:00 mouth 2 [place] 00 :00 (two) Medical times Branch daily. nadoloL 2020- No [id number] Please Univers mg tablet 09-16 take ity of 00:00: 00:00 Nadalol 40 [place] 00 :00 mg QA Medical Branch losartan 25 2020- No 25mg Take 1 [facility] vers mg tablet 5-07 08-12 tablet by ity of 00:00: 00:00 mouth 2 [place] 00 :00 (two) Medical times Branch daily. nadoloL 2020- No [id number] Please [facility] mg tablet 09-16 take ity of 00:00: 00:00 Nadalol 40 [place] 00 :00 mg QA Medical Branch losartan 25 2020- No 25mg Take 1 [facility] vers mg tablet 09-16 tablet by ity of 00:00: 00:00 mouth 2 [place] 00 :00 (two) Medical times Branch daily. nadoloL 2020- No [id number] Please Univers mg tablet 09-16 take ity of 00:00: 00:00 Nadalol 40 [place] 00 :00 mg QA Medical Branch losartan 25 2020- No 25mg Take 1 [facility] vers mg tablet 09-16 tablet by ity of 00:00: 00:00 mouth 2 [place] 00 :00 (two) Medical times Branch daily. nadoloL 2020- No [id number] Please [facility] mg tablet 09-16 take ity of 00:00: 00:00 Nadalol 40 [place] 00 :00 mg QA Medical Branch losartan 25 2020- No 25mg Take 1 [facility] vers mg tablet 09-16 tablet by ity of 00:00: 00:00 mouth 2 [place] 00 :00 (two) Medical times Branch daily. nadoloL 2020- No [id number] Please [facility] mg tablet 09-16 take ity of 00:00: 00:00 Nadalol 40 [place] 00 :00 mg QA Medical Branch losartan 25 2020- No 25mg Take 1 Uni vers mg tablet 09-16 tablet by ity of 00:00: 00:00 mouth 2 [place] 00 :00 (two) Medical times Branch daily. nadoloL 2020- No [id number] Please Univers mg tablet 09-16 take ity of 00:00: 00:00 Nadalol 40 [place] 00 :00 mg QAM Medical Branch losartan 25 2020- No 25mg Take 1 Uni vers mg tablet 09-16 tablet by ity of 00:00: 00:00 mouth 2 [place] 00 :00 (two) Medical times Branch daily. nadoloL 20 2020- No [id number] Please Univers mg tablet 09-16 take ity of 00:00: 00:00 Nadalol 40 [place] 00 :00 mg QAM Medical Branch LOESTRIN FE 2020- No [id number] 1{tbl} Take 1 [facility] (LOESTRIN 4-27 -30 tablet by ity of FE 06/01) 1 00:00: 00:00 mouth [place] mg-20 mcg 00 :00 daily. Medical (21)/75 mg Branch (7) tablet LOESTRIN FE 2020- No [id number] 1{tbl} Take 1 [facility] (LOESTRIN 4-27 -30 tablet by ity of FE 06/01) 1 00:00: 00:00 mouth [place] mg-20 mcg 00 :00 daily. Medical (21)/75 mg Branch (7) tablet LOESTRIN FE 2020- No [id number] 1{tbl} Take 1 [facility] (LOESTRIN 4-27 -30 tablet by ity of FE 06/01) 1 00:00: 00:00 mouth [place] mg-20 mcg 00 :00 daily. Medical (21)/75 mg Branch (7) tablet LOESTRIN FE 2020- No [id number] 1{tbl} Take 1 [facility] (LOESTRIN 4-27 -30 tablet by ity of FE 06/01) 1 00:00: 00:00 mouth [place] mg-20 mcg 00 :00 daily. Medical (21)/75 mg Branch (7) tablet LOESTRIN FE 2020- No [id number] 1{tbl} Take 1 [facility] (LOESTRIN 4-27 -30 tablet by ity of FE 06/01) 1 00:00: 00:00 mouth [place] mg-20 mcg 00 :00 daily. Medical (21)/75 mg Branch (7) tablet LOESTRIN FE 2020- No [id number] 1{tbl} Take 1 [facility] (LOESTRIN 4-27 -30 tablet by ity of FE 06/01) 1 00:00: 00:00 mouth [place] mg-20 mcg 00 :00 daily. Medical (21)/75 mg Branch (7) tablet LOESTRIN FE 2020-0 2020- No [id number] 1{tbl} Take 1 [facility] (LOESTRIN 4-27 -30 tablet by ity of FE 06/01) 1 00:00: 00:00 mouth [place] mg-20 mcg 00 :00 daily. Medical (21)/75 mg Branch (7) tablet LOESTRIN FE 2020-0 2020- No [id number] 1{tbl} Take 1 [facility] (LOESTRIN 4-27 -30 tablet by ity of FE 06/01) 1 00:00: 00:00 mouth [place] mg-20 mcg 00 :00 daily. Medical (21)/75 mg Branch (7) tablet LOESTRIN FE 2020-0 2020- No [id number] 1{tbl} Take 1 [facility] (LOESTRIN 4-27 -30 tablet by ity of FE 06/01) 1 00:00: 00:00 mouth [place] mg-20 mcg 00 :00 daily. Medical (21)/75 mg Branch (7) tablet LOESTRIN FE 2020-0 2020- No [id number] 1{tbl} Take 1 [facility] (LOESTRIN 4-27 -30 tablet by ity of FE 06/01) 1 00:00: 00:00 mouth [place] mg-20 mcg 00 :00 daily. Medical (21)/75 mg Branch (7) tablet LOESTRIN FE 2020-0 2020- No [id number] 1{tbl} Take 1 [facility] (LOESTRIN 4-27 -30 tablet by ity of FE 06/01) 1 00:00: 00:00 mouth [place] mg-20 mcg 00 :00 daily. Medical (21)/75 mg Branch (7) tablet LOESTRIN FE 2020-0 2020- No [id number] 1{tbl} Take 1 [facility] (LOESTRIN 4-27 -30 tablet by ity of FE 06/01) 1 00:00: 00:00 mouth [place] mg-20 mcg 00 :00 daily. Medical (21)/75 mg Branch (7) tablet LOESTRIN FE 2020-0 2020- No [id number] 1{tbl} Take 1 [facility] (LOESTRIN 4-27 -30 tablet by ity of FE 06/01) 1 00:00: 00:00 mouth [place] mg-20 mcg 00 :00 daily. Medical (21)/75 mg Branch (7) tablet LOESTRIN FE 2020- No [id number] 1{tbl} Take 1 [facility] (LOESTRIN 4-27 09-30 tablet by ity of FE 06/01) 1 00:00: 00:00 mouth [place] mg-20 mcg 00 :00 daily. Medical (21)/75 mg Branch (7) tablet FLUoxetine 2020- No [id number] 20mg Take 1 [facility] 20 mg 4-27 07-13 capsule by ity of capsule 00:00: 00:00 mouth [place] 00 :00 daily. [facility] Branch traZODone 2020- No [id number] 50mg Take 1 Univers 50 mg 4-27 07-13 tablet by ity of tablet 00:00: 00:00 mouth at [place] 00 :00 bedtime. [facility] Branch FLUoxetine 2020- No [id number] 20mg Take 1 [facility] 20 mg 4-27 07-13 capsule by ity of capsule 00:00: 00:00 mouth [place] 00 :00 daily. [facility] Branch traZODone 2020- No [id number] 50mg Take 1 Univers 50 mg 4-27 07-13 tablet by ity of tablet 00:00: 00:00 mouth at [place] 00 :00 bedtime. [facility] Branch FLUoxetine 2020- No [id number] 20mg Take 1 [facility] 20 mg 4-27 07-13 capsule by ity of capsule 00:00: 00:00 mouth [place] 00 :00 daily. [facility] Branch traZODone 2020- No [id number] 50mg Take 1 [facility] 50 mg 4-27 07-13 tablet by ity of tablet 00:00: 00:00 mouth at [place] 00 :00 bedtime. [facility] Branch FLUoxetine 2020- No [id number] 20mg Take 1 [facility] 20 mg 4-27 07-13 capsule by ity of capsule 00:00: 00:00 mouth [place] 00 :00 daily. [facility] Branch traZODone 2020- No [id number] 50mg Take 1 [facility] 50 mg 4-27 07-13 tablet by ity of tablet 00:00: 00:00 mouth at [place] 00 :00 bedtime. [facility] Branch FLUoxetine 2020- No [id number] 20mg Take 1 [facility] 20 mg 4-27 07-13 capsule by ity of capsule 00:00: 00:00 mouth [place] 00 :00 daily. [facility] Branch traZODone 2020- No [id number] 50mg Take 1 Univers 50 mg 4-27 07-13 tablet by ity of tablet 00:00: 00:00 mouth at [place] 00 :00 bedtime. [facility] Branch FLUoxetine 2020- No [id number] 20mg Take 1 [facility] 20 mg 4-27 07-13 capsule by ity of capsule 00:00: 00:00 mouth [place] 00 :00 daily. [facility] traZODone 2020- No [id number] 50mg Take 1 [facility] 50 mg 4-27 07-13 tablet by ity of tablet 00:00: 00:00 mouth at [place] 00 :00 bedtime. [facility] FLUoxetine 2020- No [id number] 20mg Take 1 [facility] 20 mg 4-27 07-13 capsule by ity of capsule 00:00: 00:00 mouth [place] 00 :00 daily. [facility] traZODone 2020- No [id number] 50mg Take 1 [facility] 50 mg 4-27 07-13 tablet by ity of tablet 00:00: 00:00 mouth at [place] 00 :00 bedtime. [facility] FLUoxetine 2020- No [id number] 20mg Take 1 [facility] 20 mg 4-27 07-13 capsule by ity of capsule 00:00: 00:00 mouth [place] 00 :00 daily. [facility] traZODone 2020- No [id number] 50mg Take 1 [facility] 50 mg 4-27 07-13 tablet by ity of tablet 00:00: 00:00 mouth at [place] 00 :00 bedtime. [facility] FLUoxetine 2020- No [id number] 20mg Take 1 [facility] 20 mg 4-27 07-13 capsule by ity of capsule 00:00: 00:00 mouth [place] 00 :00 daily. [facility] traZODone 2020- No [id number] 50mg Take 1 [facility] 50 mg 4-27 07-13 tablet by ity of tablet 00:00: 00:00 mouth at [place] 00 :00 bedtime. Medical Branch FLUoxetine 2020- No [id number] 20mg Take 1 [facility] 20 mg 09-06 capsule by ity of capsule 00:00: 00:00 mouth [place] 00 :00 daily. Medical Branch traZODone 2020- No [id number] 50mg Take 1 [facility] 50 mg 09-06 tablet by ity of tablet 00:00: 00:00 mouth at [place] 00 :00 bedtime. Medical Branch nadoloL 20 2020- No [id number] Please [facility] mg tablet 08-31 take ity of 00:00: 00:00 Nadalol 40 [place] 00 :00 mg QAM and Medical 20 mg QPM Branch methocarbam 2020- No [id number] 500mg Take 1 [facility] oL 08-18 tablet [...] Branch NEEDED FOR PAIN ondansetron 2020- No [id number] 4mg Take 1 [facility] (ZOFRAN 08-01 [id number] tablet by ity of ODT) 4 mg 00:00: 00:00 mouth [place] disintegrat 00 :00 every 8 Medic al ing tablet (eight) Branch hours as needed for Nausea and Vomiting (N/V). ketorolac 2020- No [id number] 10mg Take 1 [facility] 10 mg 08-01 [id number] tablet by ity of tablet 00:00: 00:00 mouth [place] 00 :00 every 6 Medical (six) Branch hours as needed for Pain (scale 4-6). ciprofloxac 2020- No [id number] 250mg Take 1 [facility] in HCl 250 08-01 [id number] tablet by i ty of mg tablet 00:00: 00:00 mouth 2 [place] 00 :00 (two) Medical times Branch daily. lidocaine 5 2020- No [id number] 1{patch Apply 1 [facility] % (700 3-12 05-21 } Patch to ity of mg/patch) 00:00: 00:00 area(s) [place] patch 00 :00 every 24 Medical (twenty-fo Branch ur) hours as needed for Localized pain. topiramate 2020-0 2021- No 25mg Take 1 Univ ers 25 mg 1-05 07-13 tablet by ity of tablet 00:00: 00:00 mouth 2 [place] 00 :00 (two) Medical times Branch daily. topiramate 2020-0 2021- No 25mg Take 1 Univ ers 25 mg 1-05 07-13 tablet by ity of tablet 00:00: 00:00 mouth 2 [place] 00 :00 (two) Medical times Branch daily. topiramate 2020-0 2021- No 25mg Take 1 Univ ers 25 mg 1-05 07-13 tablet by ity of tablet 00:00: 00:00 mouth 2 [place] 00 :00 (two) Medical times Branch daily. topiramate 2020-0 2021- No 25mg Take 1 Univ ers 25 mg 1-05 07-13 tablet by ity of tablet 00:00: 00:00 mouth 2 [place] 00 :00 (two) Medical times Branch daily. topiramate 1-0 2021- No 25mg Take 1 Univ ers 25 mg 1-05 07-13 tablet by ity of tablet 00:00: 00:00 mouth 2 [place] 00 :00 (two) Medical times Branch daily. topiramate 2020-0 2021- No 25mg Take 1 Univ ers 25 mg 1-05 07-13 tablet by ity of tablet 00:00: 00:00 mouth 2 [place] 00 :00 (two) Medical times Branch daily. topiramate 1-0 2021- No 25mg Take 1 Univ ers 25 mg 1-05 07-13 tablet by ity of tablet 00:00: 00:00 mouth 2 [place] 00 :00 (two) Medical times Branch daily. topiramate 1-0 2021- No 25mg Take 1 Univ ers 25 mg 1-05 07-13 tablet by ity of tablet 00:00: 00:00 mouth 2 [place] 00 :00 (two) Medical times Branch daily. topiramate 2021-0 2021- No 25mg Take 1 Univ ers 25 mg 05-17- tablet by ity of tablet 00:00: 00:00 mouth 2 [place] 00 :00 (two) Medical times Branch daily. topiramate 2020- No 25mg Take 1 Univ ers 25 mg 05-17- tablet by ity of tablet 00:00: 00:00 mouth 2 [place] 00 :00 (two) Medical times Branch daily. topiramate 2020- No 25mg Take 1 Univ ers 25 mg 05-17- tablet by ity of tablet 00:00: 00:00 mouth 2 [place] 00 :00 (two) Medical times Branch daily. topiramate 2020- No 25mg Take 1 Univ ers 25 mg 05-17- tablet by ity of tablet 00:00: 00:00 mouth 2 [place] 00 :00 (two) Medical times Branch daily. topiramate 2020- No 25mg Take 1 Univ ers 25 mg 05-17 tablet by ity of tablet 00:00: 00:00 mouth 2 [place] 00 :00 (two) Medical times Branch daily. metoprolol 2019-05 No [id number] 12.5mg Take 0.5 Univers succinate 07-03 tablets by ity of XL 25 mg 24 00:00: 00:00 mouth 2 [place] hr tablet 00 :00 (two) Medical times Branch daily for 90 days. metoprolol 2019-05 No [id number] 12.5mg Take 0.5 [facility] succinate 07-03- tablets by ity of XL 25 mg 24 00:00: 00:00 mouth 2 [place] hr tablet 00 :00 (two) Medical times Branch daily for 90 days. metoprolol 2019-05 No [id number] 12.5mg Take 0.5 [facility] succinate 07-03- tablets by ity of XL 25 mg 24 00:00: 00:00 mouth 2 [place] hr tablet 00 :00 (two) Medical times Branch daily for 90 days. FLUoxetine 2019-05- No 20mg Take 20 mg Univers 20 mg 06-14 by mouth ity of capsule 00:00: 00:00 daily. [place] 00 :00 Medical Branch FLUoxetine 2019-05 No 20mg Take 20 mg Univers 20 mg 06-14- by mouth ity of capsule 00:00: 00:00 daily. [place] 00 :00 Medical Branch norgestimat 2019- No [id number] 1{tbl} Take 1 Univers e-ethinyl 11-17- tablet by ity of estradiol 00:00: 00:00 mouth [place] 0.25-35 00 :00 daily. Medical mg-mcg per Branch tablet buPROPion 2019- No [id number] 150mg Take 1 [facility] XL 08-12- tablet by ity of (WELLBUTRIN 00:00: 00:00 mouth [place] XL) 150 mg 00 :00 daily. Medical 24 hr Branch tablet acetaminoph 2019- No [id number] 650mg Take 2 [facility] en 325 mg 07-22-25 tablets by ity of tablet 00:00: 00:00 mouth [place] 00 :00 every 6 Medical (six) Branch hours as needed for Pain (scale 1-3) or Pain (scale 4-6). 2019- No [id number] 1{tbl} Take 1 [facility] vitamin 07-22-25 tablet by ity of w/FA tablet 00:00: 00:00 mouth [place] 00 :00 daily. Medical Branch docusate 2019- No [id number] 240mg Take 1 U nivers calcium 240 07-22- capsule by i ty of mg capsule 00:00: 00:00 mouth once [place] 00 :00 daily as Medical needed for Branch Constipati on. ferrous 2019- No [id number] 325mg Take 1 Un sushant sulfate 325 07-22-25 tablet by it y of mg (65 mg 00:00: 00:00 mouth 2 [place] iron) 00 :00 (two) Medical tablet times Branch daily. ibuprofen 2019- No [id number] 600mg Take 1 [facility] 600 mg 07-22-25 tablet by ity of tablet 00:00: 00:00 mouth [place] 00 :00 every 6 Medical (six) Branch hours as needed (Pain). Take with food or milk. ALBUTEROL 2019- No [id number] INHALE 2 Univers 90 1-14 12-20 103 PUFFS BY ity of mcg/actuati 00:00: 00:00 MOUTH [place] on inhaler 00 :00 EVERY 6 Medica l HOURS Branch NEEDED FOR WHEEZING FOR SHORTNESS OF BREATH buPROPion 2020- No [id number] 150mg Take 1 [facility] SR 05-21 tablet by ity of (WELLBUTRIN 00:00: 00:00 mouth 2 [place] SR) 150 mg 00 :00 (two) Medical SR tablet times Branch daily. busPIRone 2020- No [id number] 10mg Take 1 Univers 10 mg 05-21 109 tablet by ity of tablet 00:00: 00:00 mouth 3 [place] 00 :00 (three) Medical times Branch daily. Immunizations Ordered Filled Date Status Comments Source Immunization Name Immunization Name Influenza Virus 2022-02-27 Completed [facility] of Vaccine [facility] IM, 00:00:00 [place] [facility] Preserv and ABX Branch Free 6 MO-64 YRS Influenza Virus 2022-02-27 Completed [facility] of Vaccine Quad IM, 00:00:00 [place] Me dical Preserv and ABX Branch Free [...] Universit y of Vaccine Quad IM, 00:00:00 [place] Me dical Preserv and ABX Branch Free [...] Universit y of Vaccine Quad IM, 00:00:00 [place] Me dical Preserv and ABX Branch Free [...] of Vaccine Quad .5 mL 00:00:00 [place] [facility] 6+ MO Branch Influenza Virus 2022-02-21 Completed Universit y of Vaccine Quad .5 mL 00:00:00 [place] [facility] 6+ MO Branch Influenza Virus 2022-02-21 Completed Universit y of Vaccine Quad .5 mL 00:00:00 [place] [facility] 6+ MO Branch (FLUZONE/FLULAVAL/F LUARIX) Influenza Virus 2022-02-21 Completed Universit y of Vaccine Quad .5 mL 00:00:00 [place] [facility] 6+ MO Branch (FLUZONE/FLULAVAL/F LUARIX) Influenza Virus 2022-02-21 Completed Universit y of Vaccine Quad .5 mL 00:00:00 [place] [facility] 6+ MO Branch (FLUZONE/FLULAVAL/F LUARIX) Influenza Virus 2021-06-11 Completed Universit y of Vaccine 00:00:00 [facility] Influenza Virus 2021-06-11 Completed Universit y of Vaccine 00:00:00 [facility] Influenza Virus 2021-06-11 Completed [facility]:00:00 [facility] Influenza Virus 2021-06-11 Completed [facility] Vaccine 00:00:00 [facility] Influenza Virus 2021-06-11 Completed [facility] Vaccine 00:00:00 [facility] Influenza Virus 2021-06-11 Completed [facility] Vaccine 00:00:00 [facility] Influenza Virus 2021-06-11 Completed [facility] Vaccine 00:00:00 [facility] Influenza Virus 2021-06-11 Completed [facility] Vaccine 00:00:00 [facility] Influenza Virus 2021-06-11 Completed [facility] Vaccine 00:00:00 [facility] Influenza Virus 2021-06-11 Completed [facility] Vaccine 00:00:00 [facility] Influenza Virus 2021-06-11 Completed [facility] Vaccine 00:00:00 [facility] Influenza Virus 2021-06-11 Completed [facility] Vaccine 00:00:00 [facility] Influenza Virus 2021-06-11 Completed [facility] Vaccine 00:00:00 [facility] Influenza Virus 2021-06-11 Completed [facility] Vaccine 00:00:00 [facility] Influenza Virus 2021-06-11 Completed [facility] Vaccine 00:00:00 [facility] Influenza Virus 2021-06-11 Completed [facility] Vaccine 00:00:00 [facility] Influenza Virus 2021-06-11 Completed [facility] Vaccine 00:00:00 [facility] Influenza Virus 2021-06-11 Completed [facility] Vaccine 00:00:00 [facility] Influenza Virus 2021-06-11 Completed [facility] Vaccine 00:00:00 [facility] Influenza Virus 2021-06-11 Completed [facility] Vaccine 00:00:00 [facility] Influenza Virus 2021-06-11 Completed [facility] Vaccine 00:00:00 [facility] Influenza Virus 2021-06-11 Completed [facility] Vaccine 00:00:00 [facility] Influenza Virus 2021-06-11 Completed [facility] Vaccine 00:00:00 [facility] Influenza Virus 2021-06-11 Completed [facility] Vaccine 00:00:00 [facility] Influenza Virus 2021-06-11 Completed [facility] Vaccine 00:00:00 [facility] Influenza Virus 2021-06-11 Completed [facility] Vaccine 00:00:00 [facility] Influenza Virus 2021-06-11 Completed [facility] Vaccine 00:00:00 [facility] Influenza Virus 2021-06-11 Completed [facility] Vaccine 00:00:00 [facility] Influenza Virus 2021-06-11 Completed [facility] Vaccine 00:00:00 [facility] Influenza Virus 2021-06-11 Completed [facility] Vaccine 00:00:00 [facility] Influenza Virus 2021-06-11 Completed [facility] Vaccine 00:00:00 [facility] Influenza Virus 2021-06-11 Completed [facility] Vaccine 00:00:00 [facility] Influenza Virus 2021-06-11 Completed [facility] Vaccine 00:00:00 [facility] Influenza Virus 2021-06-11 Completed [facility] Vaccine 00:00:00 [facility] Influenza Virus 2021-06-11 Completed [facility] Vaccine 00:00:00 [facility] Influenza Virus 2021-06-11 Completed [facility] Vaccine 00:00:00 [facility] Influenza Virus 2021-06-11 Completed [facility] Vaccine 00:00:00 [facility] Influenza Virus 2021-06-11 Completed [facility] Vaccine 00:00:00 [facility] Influenza Virus 2021-06-11 Completed [facility] Vaccine 00:00:00 [facility] Influenza Virus 2021-06-11 Completed [facility] Vaccine 00:00:00 [facility] Influenza Virus 2021-06-11 Completed [facility] Vaccine 00:00:00 [facility] Influenza Virus 2021-06-11 Completed [facility] Vaccine 00:00:00 [facility] Influenza Virus 2021-06-11 Completed [facility] Vaccine 00:00:00 [facility] Influenza Virus 2021-06-11 Completed [facility] Vaccine 00:00:00 [facility] Influenza Virus 2021-06-11 Completed [facility] Vaccine 00:00:00 [facility] Influenza Virus 2021-06-11 Completed [facility] Vaccine 00:00:00 [facility] Influenza Virus 2021-06-11 Completed [facility] Vaccine 00:00:00 [facility] Influenza Virus 2021-06-11 Completed [facility] Vaccine 00:00:00 [facility] Influenza Virus 2021-06-11 Completed [facility] Vaccine Quad .5 mL 00:00:00 [facility] 6+ MO [facility] Influenza Virus 2021-06-11 Completed [facility] Vaccine 00:00:00 [facility] Influenza Virus 2021-06-11 Completed [facility] Vaccine Quad .5 mL 00:00:00 [facility] 6+ MO [facility] Influenza Virus 2021-06-11 Completed [facility] Vaccine 00:00:00 [facility] Influenza Virus 2021-06-11 Completed [facility] Vaccine Quad .5 mL 00:00:00 [facility] IM 6+ MO [facility] Influenza Virus 2021-06-11 Completed [facility] Vaccine 00:00:00 [facility] Influenza Virus 2021-06-11 Completed [facility] Vaccine Quad .5 mL 00:00:00 [facility] IM 6+ MO [facility] Influenza Virus 2021-06-11 Completed [facility] Vaccine 00:00:00 [facility] Influenza Virus 2021-06-11 Completed [facility] Vaccine Quad .5 mL 00:00:00 [facility] IM 6+ MO [facility] Influenza Virus 2021-06-11 Completed [facility] Vaccine 00:00:00 [facility] Influenza Virus 2021-06-11 Completed [facility] Vaccine Quad .5 mL 00:00:00 [facility] 6[facility] MO [facility] Influenza Virus 2021-06-11 Completed [facility] Vaccine 00:00:00 [facility] Influenza Virus 2021-06-11 Completed [facility] Vaccine Quad .5 mL 00:00:00 [facility] 6+ MO [facility] Influenza Virus 2021-06-11 Completed [facility] Vaccine 00:00:00 [facility] Influenza Virus 2021-06-11 Completed [facility] Vaccine Quad .5 mL 00:00:00 [facility] 6+ MO [facility] Influenza Virus 2021-06-11 Completed [facility] Vaccine 00:00:00 [facility] Influenza Virus 2021-06-11 Completed [facility] Vaccine Quad .5 mL 00:00:00 [facility] 6+ MO [facility] Influenza Virus 2021-06-11 Completed [facility] Vaccine 00:00:00 [facility] Influenza Virus 2021-06-11 Completed [facility] Vaccine Quad .5 mL 00:00:00 [facility] 6+ MO [facility] Influenza Virus 2021-06-11 Completed [facility] Vaccine 00:00:00 [facility] Influenza Virus 2021-06-11 Completed [facility] Vaccine Quad .5 mL 00:00:00 [facility] 6+ MO [facility] Influenza Virus 2021-06-11 Completed [facility] Vaccine 00:00:00 [facility] Influenza Virus 2021-06-11 Completed [facility] Vaccine Quad .5 mL 00:00:00 [facility] 6+ MO [facility] Influenza Virus 2021-06-11 Completed [facility] Vaccine 00:00:00 [facility] Influenza Virus 2021-06-11 Completed [facility] Vaccine Quad .5 mL 00:00:00 [facility] 6+ MO [facility] Influenza Virus 2021-06-11 Completed [facility] Vaccine 00:00:00 [facility] Influenza Virus 2021-06-11 Completed [facility] Vaccine Quad .5 mL 00:00:00 [facility] 6+ MO [facility] (FLUZONE/FLULAVAL/F LUARIX) Influenza Virus 2021-06-11 Completed [facility] Vaccine 00:00:00 [facility] Influenza Virus 2021-06-11 Completed [facility] Vaccine Quad .5 mL 00:00:00 [facility] 6+ MO [facility] (FLUZONE/FLULAVAL/F LUARIX) Influenza Virus 2021-06-11 Completed [facility] Vaccine 00:00:00 [facility] Influenza Virus 2021-06-11 Completed [facility] Vaccine Quad .5 mL 00:00:00 [facility] 6+ MO [facility] (FLUZONE/FLULAVAL/F LUARIX) Influenza Virus 2020-05-19 Completed [facility] Vaccine 00:00:00 [facility] Influenza Virus 2020-05-19 Completed [facility] Vaccine 00:00:00 [facility] Influenza Virus 2020-05-19 Completed [facility] Vaccine 00:00:00 [facility] Influenza Virus 2020-05-19 Completed [facility] Vaccine 00:00:00 [facility] Influenza Virus 2020-05-19 Completed [facility] Vaccine 00:00:00 [facility] Influenza Virus 2020-05-19 Completed [facility] Vaccine 00:00:00 [facility] Influenza Virus 2020-05-19 Completed [facility] Vaccine 00:00:00 [facility] Influenza Virus 2020-05-19 Completed [facility] Vaccine 00:00:00 [facility] Influenza Virus 2020-05-19 Completed [facility] Vaccine 00:00:00 [facility] Influenza Virus 2020-05-19 Completed [facility] Vaccine 00:00:00 [facility] Influenza Virus 2020-05-19 Completed [facility] Vaccine 00:00:00 [facility] Influenza Virus 2020-05-19 Completed [facility] Vaccine 00:00:00 [facility] Influenza Virus 2020-05-19 Completed [facility] Vaccine 00:00:00 [facility] Influenza Virus 2020-05-19 Completed [facility] Vaccine 00:00:00 [facility] Influenza Virus 2020-05-19 Completed [facility] Vaccine 00:00:00 [facility] Influenza Virus 2020-05-19 Completed [facility] Vaccine 00:00:00 [facility] Influenza Virus 2020-05-19 Completed [facility] Vaccine 00:00:00 [facility] Influenza Virus 2020-05-19 Completed [facility] Vaccine 00:00:00 [facility] Influenza Virus 2020-05-19 Completed [facility] Vaccine 00:00:00 [facility] Influenza Virus 2020-05-19 Completed [facility] Vaccine 00:00:00 [facility] Influenza Virus 2020-05-19 Completed [facility] Vaccine 00:00:00 [facility] Influenza Virus 2020-05-19 Completed [facility] Vaccine 00:00:00 [facility] Influenza Virus 2020-05-19 Completed [facility] Vaccine 00:00:00 [facility] Influenza Virus 2020-05-19 Completed [facility] Vaccine 00:00:00 [facility] Influenza Virus 2020-05-19 Completed [facility] Vaccine 00:00:00 [facility] Influenza Virus 2020-05-19 Completed [facility] Vaccine 00:00:00 [facility] Influenza Virus 2020-05-19 Completed [facility] Vaccine 00:00:00 [facility] Influenza Virus 2020-05-19 Completed [facility] Vaccine 00:00:00 [facility] Influenza Virus 2020-05-19 Completed [facility] Vaccine 00:00:00 [facility] Influenza Virus 2020-05-19 Completed [facility] Vaccine 00:00:00 [facility] Influenza Virus 2020-05-19 Completed [facility] Vaccine 00:00:00 [facility] Influenza Virus 2020-05-19 Completed [facility] Vaccine 00:00:00 [facility] Influenza Virus 2020-05-19 Completed [facility] Vaccine 00:00:00 [facility] Influenza Virus 2020-05-19 Completed [facility] Vaccine 00:00:00 [facility] Influenza Virus 2020-05-19 Completed [facility] Vaccine 00:00:00 [facility] Influenza Virus 2020-05-19 Completed [facility] Vaccine 00:00:00 [facility] Influenza Virus 2020-05-19 Completed [facility] Vaccine 00:00:00 [facility] Influenza Virus 2020-05-19 Completed [facility] Vaccine 00:00:00 [facility] Influenza Virus 2020-05-19 Completed [facility] Vaccine 00:00:00 [facility] Influenza Virus 2020-05-19 Completed [facility] Vaccine 00:00:00 [facility] Influenza Virus 2020-05-19 Completed [facility] Vaccine 00:00:00 [facility] Influenza Virus 2020-05-19 Completed [facility] Vaccine 00:00:00 [facility] Influenza Virus 2020-05-19 Completed [facility] Vaccine 00:00:00 [facility] Influenza Virus 2020-05-19 Completed [facility] Vaccine 00:00:00 [facility] Influenza Virus 2020-05-19 Completed [facility] Vaccine 00:00:00 [facility] Influenza Virus 2020-05-19 Completed [facility] Vaccine 00:00:00 [facility] Influenza Virus 2020-05-19 Completed [facility] Vaccine 00:00:00 [facility] Influenza Virus 2020-05-19 Completed [facility] Vaccine 00:00:00 [facility] Influenza Virus 2020-05-19 Completed [facility] Vaccine 00:00:00 [facility] Influenza Virus 2020-05-19 Completed [facility] Vaccine 00:00:00 [facility] Influenza Virus 2020-05-19 Completed [facility] Vaccine 00:00:00 [facility] Influenza Virus 2020-05-19 Completed [facility] Vaccine 00:00:00 [facility] Influenza Virus 2020-05-19 Completed [facility] Vaccine 00:00:00 [facility] Influenza Virus 2020-05-19 Completed [facility] Vaccine 00:00:00 [facility] Influenza Virus 2020-05-19 Completed [facility] Vaccine 00:00:00 [facility] Influenza Virus 2020-05-19 Completed [facility] Vaccine 00:00:00 [facility] Influenza Virus 2020-05-19 Completed [facility] Vaccine 00:00:00 [facility] Influenza Virus 2020-05-19 Completed [facility] Vaccine 00:00:00 [facility] Influenza Virus 2020-05-19 Completed [facility] Vaccine 00:00:00 [facility] Influenza Virus 2020-05-19 Completed [facility] Vaccine 00:00:00 [facility] Influenza Virus 2020-05-19 Completed [facility] Vaccine 00:00:00 [facility] Influenza Virus 2020-05-19 Completed [facility] Vaccine 00:00:00 [facility] Influenza Virus 2020-05-19 Completed [facility] Vaccine 00:00:00 [facility] Influenza Virus 2020-05-16 Completed [facility] Vaccine Recomb Quad 00:00:00 [facility], Preserv and ABX Branc h Free [...] (ADACEL) 2019-05-21 Completed [facility] VACCINE 00:00:00 [facility] TDAP (ADACEL) 2019-05-21 Completed [facility] VACCINE 00:00:00 [facility] TDAP (ADACEL) 2019-05-21 Completed [facility] VACCINE 00:00:00 [facility] TDAP (ADACEL) 2019-05-21 Completed [facility] VACCINE 00:00:00 [facility] TDAP (ADACEL) 2019-05-21 Completed [facility] VACCINE 00:00:00 [facility] TDAP (ADACEL) 2019-05-21 Completed [facility] VACCINE 00:00:00 [facility] TDAP (ADACEL) 2019-05-21 Completed [facility] VACCINE 00:00:00 [facility] TDAP (ADACEL) 2019-05-21 Completed [facility] VACCINE 00:00:00 [facility] TDAP (ADACEL) 2019-05-21 Completed [facility] VACCINE 00:00:00 [facility] TDAP (ADACEL) 2019-05-21 Completed [facility] VACCINE 00:00:00 [facility] TDAP (ADACEL) 2019-05-21 Completed [facility] VACCINE 00:00:00 [facility] TDAP (ADACEL) 2019-05-21 Completed [facility] VACCINE 00:00:00 [facility] TDAP (ADACEL) 2019-05-21 Completed [facility] VACCINE 00:00:00 [facility] TDAP (ADACEL) 2019-05-21 Completed [facility] VACCINE 00:00:00 [facility] TDAP (ADACEL) 2019-05-21 Completed [facility] VACCINE 00:00:00 [facility] TDAP (ADACEL) 2019-05-21 Completed [facility] VACCINE 00:00:00 [facility] TDAP (ADACEL) 2019-05-21 Completed [facility] VACCINE 00:00:00 [facility] TDAP (ADACEL) 2019-05-21 Completed [facility] VACCINE 00:00:00 [facility] TDAP (ADACEL) 2019-05-21 Completed [facility] VACCINE 00:00:00 [facility] TDAP (ADACEL) 2019-05-21 Completed [facility] VACCINE 00:00:00 [facility] TDAP (ADACEL) 2019-05-21 Completed [facility] VACCINE 00:00:00 [facility] TDAP (ADACEL) 2019-05-21 Completed [facility] VACCINE 00:00:00 [facility] TDAP (ADACEL) 2019-05-21 Completed [facility] VACCINE 00:00:00 [facility] TDAP (ADACEL) 2019-05-21 Completed [facility] VACCINE 00:00:00 [facility] TDAP (ADACEL) 2019-05-21 Completed [facility] VACCINE 00:00:00 [facility] TDAP (ADACEL) 2019-05-21 Completed [facility] VACCINE 00:00:00 [facility] TDAP (ADACEL) 2019-05-21 Completed [facility] VACCINE 00:00:00 [facility] TDAP (ADACEL) 2019-05-21 Completed [facility] VACCINE 00:00:00 [facility] TDAP (ADACEL) 2019-05-21 Completed [facility] VACCINE 00:00:00 [facility] TDAP (ADACEL) 2019-05-21 Completed [facility] VACCINE 00:00:00 [facility] TDAP (ADACEL) 2019-05-21 Completed [facility] VACCINE 00:00:00 [facility] TDAP (ADACEL) 2019-05-21 Completed [facility] VACCINE 00:00:00 [facility] TDAP (ADACEL) 2019-05-21 Completed [facility] VACCINE 00:00:00 [facility] TDAP (ADACEL) 2019-05-21 Completed [facility] VACCINE 00:00:00 [facility] TDAP (ADACEL) 2019-05-21 Completed [facility] VACCINE 00:00:00 [facility] TDAP (ADACEL) 2019-05-21 Completed [facility] VACCINE 00:00:00 [facility] TDAP (ADACEL) 2019-05-21 Completed [facility] VACCINE 00:00:00 [facility] TDAP (ADACEL) 2019-05-21 Completed [facility] VACCINE 00:00:00 [facility] TDAP (ADACEL) 2019-05-21 Completed [facility] VACCINE 00:00:00 [facility] TDAP (ADACEL) 2019-05-21 Completed [facility] VACCINE 00:00:00 [facility] TDAP (ADACEL) 2019-05-21 Completed [facility] VACCINE 00:00:00 [facility] TDAP (ADACEL) 2019-05-21 Completed [facility] VACCINE 00:00:00 [facility] TDAP (ADACEL) 2019-05-21 Completed [facility] [...] (ADACEL) 2019-05-21 Completed [facility] VACCINE 00:00:00 [facility] TDAP (ADACEL) 2019-05-21 Completed [facility] VACCINE 00:00:00 [facility] TDAP (ADACEL) 2019-05-21 Completed [facility] VACCINE 00:00:00 [facility] TDAP (ADACEL) 2019-05-21 Completed [facility] VACCINE 00:00:00 [facility] TDAP (ADACEL) 2019-05-21 Completed [facility] VACCINE 00:00:00 [facility] TDAP (ADACEL) 2019-05-21 Completed [facility] VACCINE 00:00:00 [facility] TDAP (ADACEL) 2019-05-21 Completed [facility] VACCINE 00:00:00 [facility] TDAP (ADACEL) 2019-05-21 Completed [facility] VACCINE 00:00:00 [facility] TDAP (ADACEL) 2019-05-21 Completed [facility] VACCINE 00:00:00 [facility] TDAP (ADACEL) 2019-05-21 Completed [facility] VACCINE 00:00:00 [facility] TDAP (ADACEL) 2019-05-21 Completed [facility] VACCINE 00:00:00 [facility] TDAP (ADACEL) 2019-05-21 Completed [facility] VACCINE 00:00:00 [facility] TDAP (ADACEL) 2019-05-21 Completed [facility] VACCINE 00:00:00 [facility] TDAP (ADACEL) 2019-05-21 Completed [facility] VACCINE 00:00:00 [facility] Influenza Virus 2019-02-06 Completed [facility] Vaccine Quad .5 mL 00:00:00 [facility] Influenza Virus 2019-02-06 Completed [facility] Vaccine Quad .5 mL 00:00:00 [facility] Influenza Virus 2019-02-06 Completed [facility] Vaccine Quad .5 mL 00:00:00 [facility] Influenza Virus 2019-02-06 Completed [facility] Vaccine Quad .5 mL 00:00:00 [facility] Influenza Virus 2019-02-06 Completed [facility] Vaccine Quad .5 mL 00:00:00 [facility] Influenza Virus 2019-02-06 Completed [facility] Vaccine Quad .5 mL 00:00:00 [facility] Influenza Virus [...] y of Vaccine Quad .5 mL 00:00:00 [facility] Influenza Virus 2019-02-06 Completed [facility] Vaccine Quad .5 mL 00:00:00 [facility] Influenza Virus 2019-02-06 Completed [facility] Vaccine Quad .5 mL 00:00:00 [facility] Influenza Virus 2019-02-06 Completed [facility] Vaccine Quad .5 mL 00:00:00 [facility] Influenza Virus 2019-02-06 Completed [facility] Vaccine Quad .5 mL 00:00:00 [facility] Influenza Virus [...] y of Vaccine Quad .5 mL 00:00:00 [facility] Influenza Virus [...] y of Vaccine Quad .5 mL 00:00:00 [facility] Influenza Virus [...] y of Vaccine Quad .5 mL 00:00:00 [facility] Influenza Virus 2019-02-06 Completed [facility] Vaccine Quad .5 mL 00:00:00 [facility] Influenza Virus 2019-02-06 Completed [facility] Vaccine Quad .5 mL 00:00:00 [facility] Influenza Virus 2019-02-06 Completed [facility] Vaccine Quad .5 mL 00:00:00 [facility] Influenza Virus 2019-02-06 Completed [facility] Vaccine Quad .5 mL 00:00:00 [facility] Influenza Virus 2019-02-06 Completed [facility] Vaccine Quad .5 mL 00:00:00 [facility] Influenza Virus 2019-02-06 Completed [facility] Vaccine Quad .5 mL 00:00:00 [facility] Influenza Virus 2019-02-06 Completed [facility] Vaccine Quad .5 mL 00:00:00 [facility] Influenza Virus 2019-02-06 Completed [facility] Vaccine Quad .5 mL 00:00:00 [facility] Influenza Virus 2019-02-06 Completed [facility] Vaccine Quad .5 mL 00:00:00 [facility] Influenza Virus 2019-02-06 Completed [facility] Vaccine Quad .5 mL 00:00:00 [facility] Influenza Virus 2019-02-06 Completed [facility] Vaccine Quad .5 mL 00:00:00 [facility] Influenza Virus 2019-02-06 Completed [facility] Vaccine Quad .5 mL 00:00:00 [facility] Influenza Virus 2019-02-06 Completed [facility] Vaccine Quad .5 mL 00:00:00 [facility] Influenza Virus 2019-02-06 Completed [facility] Vaccine Quad .5 mL 00:00:00 [facility] Influenza Virus 2019-02-06 Completed [facility] Vaccine Quad .5 mL 00:00:00 [facility] Influenza Virus 2019-02-06 Completed [facility] Vaccine Quad .5 mL 00:00:00 [facility] Influenza Virus 2019-02-06 Completed [facility] Vaccine Quad .5 mL 00:00:00 [facility] Influenza Virus 2019-02-06 Completed [facility] Vaccine Quad .5 mL 00:00:00 [facility] Influenza Virus 2019-02-06 Completed [facility] Vaccine Quad .5 mL 00:00:00 [facility] Influenza Virus 2019-02-06 Completed [facility] Vaccine Quad .5 mL 00:00:00 [facility] Influenza Virus 2019-02-06 Completed [facility] Vaccine Quad .5 mL 00:00:00 [facility] Influenza Virus 2019-02-06 Completed [facility] Vaccine Quad .5 mL 00:00:00 [facility] 6+ MO [facility] Influenza Virus 2019-02-06 Completed [facility] Vaccine Quad .5 mL 00:00:00 [facility] Influenza Virus 2019-02-06 Completed [facility] Vaccine Quad .5 mL 00:00:00 [facility] Influenza Virus 2019-02-06 Completed [facility] Vaccine Quad .5 mL 00:00:00 [facility] Influenza Virus 2019-02-06 Completed [facility] Vaccine Quad .5 mL 00:00:00 [facility] 6+ MO [facility] Influenza Virus 2019-02-06 Completed [facility] Quad .5 mL 00:00:00 [facility] 6+ MO [facility] Influenza Virus 2019-02-06 Completed [facility] Vaccine Quad .5 mL 00:00:00 [facility] 6+ MO Branch Influenza Virus [...] [facility] Vaccine Quad .5 mL [facility] 6+ MO Branch (FLUZONE/FLULAVAL/F LUARIX) TDAP (ADACEL) Unknown Completed [facility] of VACCINE [facility] Influenza Virus Unknown Completed [facility] Vaccine Recomb Quad [facility], Preserv and ABX Branc h Free 18-64 YRS Influenza Virus Unknown Completed [facility] Vaccine [facility] Influenza Virus Unknown Completed [facility] Vaccine [facility] Influenza Virus Unknown Completed [facility] Vaccine Quad , [facility] dical Preserv and ABX Branch Free 6 MO-64 YRS (FLUCELVAX) Influenza Virus Unknown Completed [facility] Vaccine Quad .5 mL [facility] 6+ MO Branch (FLUZONE/FLULAVAL/F LUARIX) Influenza Virus Unknown Completed [facility] Vaccine Quad .5 mL [facility] 6+ MO Branch (FLUZONE/FLULAVAL/F LUARIX) Influenza Virus Unknown Completed [facility] Vaccine Quad .5 mL [facility] 6+ MO Branch (FLUZONE/FLULAVAL/F LUARIX) TDAP (ADACEL) Unknown Completed [facility]ACCINE [facility] Influenza Virus Unknown Completed [facility] Vaccine Recomb Quad [facility], Preserv and ABX Branc h Free 18-64 YRS Influenza Virus Unknown Completed [facility] Vaccine [facility] Influenza Virus Unknown Completed [facility] Influenza Virus Unknown Completed [facility] , [facility] Preserv and ABX Branch Free 6 MO-64 YRS (FLUCELVAX) Influenza Virus Unknown Completed [facility] Vaccine Quad .5 mL [facility] 6+ MO Branch (FLUZONE/FLULAVAL/F LUARIX) Influenza Virus Unknown Completed [facility] Vaccine Quad .5 mL [facility] 6+ MO Branch (FLUZONE/FLULAVAL/F LUARIX) Influenza Virus Unknown Completed [facility] Vaccine Quad .5 mL [facility] IM 6+ MO Branch (FLUZONE/FLULAVAL/F LUARIX) TDAP (ADACEL) Unknown Completed [facility]ACCINE [facility] Influenza Virus Unknown Completed [facility] Vaccine Recomb Quad [facility], Preserv and ABX Branc h Free 18-64 YRS Influenza Virus Unknown Completed [facility] Vaccine [facility] Influenza Virus Unknown Completed [facility] Vaccine [facility] Influenza Virus Unknown Completed [facility] Vaccine Quad .5 mL [facility] 6+ MO Branch (FLUZONE/FLULAVAL/F LUARIX) Influenza Virus Unknown Completed [facility] Vaccine Quad .5 mL [facility] 6+ MO Branch (FLUZONE/FLULAVAL/F LUARIX) TDAP (ADACEL) Unknown Completed [facility]ACC[facility] Influenza Virus Unknown Completed [facility] Vaccine Recomb Quad [facility], Preserv and ABX Branc h Free 18-64 YRS Influenza Virus Unknown Completed [facility] Vaccine [facility] Influenza Virus Unknown Completed [facility] Vaccine [facility] Influenza Virus Unknown Completed [facility] Vaccine Quad .5 mL [facility] 6+ MO Branch (FLUZONE/FLULAVAL/F LUARIX) Influenza Virus Unknown Completed [facility] Vaccine Quad .5 mL [facility] IM 6+ MO Branch (FLUZONE/FLULAVAL/F LUARIX) TDAP (ADACEL) Unknown Completed [facility]ACCINE [facility] Influenza Virus Unknown Completed [facility] Vaccine Recomb Quad [facility], Preserv and ABX Branc h Free 18-64 YRS Influenza Virus Unknown Completed [facility] Vaccine [facility] Influenza Virus Unknown Completed [facility] Vaccine [facility] Influenza Virus Unknown Completed [facility] Vaccine Quad .5 mL [facility] IM 6+ MO Branch (FLUZONE/FLULAVAL/F LUARIX) Influenza Virus Unknown Completed [facility] Vaccine Quad .5 mL [facility] 6+ MO Branch (FLUZONE/FLULAVAL/F LUARIX) TDAP (ADACEL) Unknown Completed University VACCINE [facility] Influenza Virus Unknown Completed [facility] Vaccine Recomb [facility], Preserv and ABX Branc h Free 18-64 YRS Influenza Virus Unknown Completed [facility] Vaccine [facility] Influenza Virus Unknown Completed [facility] Vaccine [facility] Influenza Virus Unknown Completed [facility] Vaccine Quad .5 mL [facility] 6+ MO Branch (FLUZONE/FLULAVAL/F LUARIX) Influenza Virus Unknown Completed [facility] Vaccine Quad .5 mL [facility] 6+ MO Branch (FLUZONE/FLULAVAL/F LUARIX) TDAP (ADACEL) Unknown Completed [facility] Influenza Virus Unknown Completed [facility] Vaccine Recomb Quad [facility] , Preserv and ABX Branc h Free 18-64 YRS Influenza Virus Unknown Completed [facility] Vaccine [facility] Influenza Virus Unknown Completed [facility] Vaccine [facility] Influenza Virus Unknown Completed [facility] Vaccine Quad .5 mL [facility] 6+ MO Branch (FLUZONE/FLULAVAL/F LUARIX) Influenza Virus Unknown Completed [facility] Vaccine Quad .5 mL [facility] 6+ MO Branch (FLUZONE/FLULAVAL/F LUARIX) TDAP (ADACEL) Unknown Completed [facility] Influenza Virus Unknown Completed [facility] Vaccine Recomb Quad [facility], Preserv and ABX Branc h Free 18-64 YRS Influenza Virus Unknown Completed [facility] Vaccine [facility] Influenza Virus Unknown Completed [facility] Vaccine [facility] Influenza Virus Unknown Completed [facility] Vaccine Quad .5 mL [facility] 6+ MO Branch (FLUZONE/FLULAVAL/F LUARIX) Influenza Virus Unknown Completed [facility] Vaccine Quad .5 mL [facility] 6+ MO Branch (FLUZONE/FLULAVAL/F LUARIX) TDAP (ADACEL) Unknown Completed [facility] Influenza Virus Unknown Completed [facility] Vaccine Recomb Quad [facility], Preserv and ABX Branc h Free 18-64 YRS Influenza Virus Unknown Completed [facility] Vaccine [facility] Influenza Virus Unknown Completed [facility] Vaccine [facility] Influenza Virus Unknown Completed [facility] Vaccine Quad .5 mL [facility] 6+ MO Branch (FLUZONE/FLULAVAL/F LUARIX) Influenza Virus Unknown Completed [facility] Vaccine Quad .5 mL [facility] 6+ MO Branch (FLUZONE/FLULAVAL/F LUARIX) TDAP (ADACEL) Unknown Completed [facility]ACC[facility] Influenza Virus Unknown Completed [facility] Vaccine Recomb Quad [facility], Preserv and ABX Branc h Free 18-64 YRS Influenza Virus Unknown Completed [facility] Vaccine [facility] Influenza Virus Unknown Completed [facility] Vaccine [facility] Influenza Virus Unknown Completed [facility] Vaccine Quad .5 mL [facility] 6+ MO Branch (FLUZONE/FLULAVAL/F LUARIX) Influenza Virus Unknown Completed [facility] Vaccine Quad .5 mL [facility] 6+ MO Branch (FLUZONE/FLULAVAL/F LUARIX) TDAP (ADACEL) Unknown Completed [facility]ACCINE [facility] Influenza Virus Unknown Completed [facility] Vaccine Recomb Quad [facility], Preserv and ABX Branc h Free 18-64 YRS Influenza Virus Unknown Completed [facility] Vaccine [facility] Influenza Virus Unknown Completed [facility] Vaccine [facility] Influenza Virus Unknown Completed [facility] Vaccine Quad .5 mL [facility] 6+ MO Branch (FLUZONE/FLULAVAL/F LUARIX) Influenza Virus Unknown Completed [facility] Vaccine Quad .5 mL [facility] 6+ MO Branch (FLUZONE/FLULAVAL/F LUARIX) TDAP (ADACEL) Unknown Completed [facility] Influenza Virus Unknown Completed [facility] Vaccine Recomb Quad [facility], Preserv and ABX Branc h Free 18-64 YRS Influenza Virus Unknown Completed [facility] Vaccine [facility] Influenza Virus Unknown Completed [facility] Vaccine [facility] Influenza Virus Unknown Completed [facility] Vaccine Quad .5 mL [facility] 6+ MO Branch (FLUZONE/FLULAVAL/F LUARIX) Influenza Virus Unknown Completed [facility] Vaccine Quad .5 mL [facility] 6+ MO Branch (FLUZONE/FLULAVAL/F LUARIX) TDAP (ADACEL) Unknown Completed [facility] Influenza Virus Unknown Completed [facility] Vaccine Recomb Quad [facility], Preserv and ABX Branc h Free 18-64 YRS Influenza Virus Unknown Completed [facility] Vaccine [facility] Influenza Virus Unknown Completed [facility]ine [facility] Influenza Virus Unknown Completed [facility] Vaccine Quad .5 mL [facility] 6+ MO Branch (FLUZONE/FLULAVAL/F LUARIX) Influenza Virus Unknown Completed [facility] Vaccine Quad .5 mL [facility] 6+ MO Branch (FLUZONE/FLULAVAL/F LUARIX) TDAP (ADACEL) Unknown Completed [facility] Influenza Virus Unknown Completed [facility] Vaccine Recomb Quad [facility], Preserv and ABX Branc h Free 18-64 YRS Influenza Virus Unknown Completed [facility] Influenza Virus Unknown Completed [facility] Influenza Virus Unknown Completed [facility] Vaccine Quad .5 mL [facility] 6+ MO Branch (FLUZONE/FLULAVAL/F LUARIX) Influenza Virus Unknown Completed [facility] Vaccine Quad .5 mL [facility] 6+ MO Branch (FLUZONE/FLULAVAL/F LUARIX) TDAP (ADACEL) Unknown Completed [facility] Influenza Virus Unknown Completed [facility] Vaccine Recomb [facility] , Preserv and ABX Branc h Free 18-64 YRS Influenza Virus Unknown Completed [facility] Vaccine [facility] Influenza Virus Unknown Completed [facility] Vaccine [facility] Influenza Virus Unknown Completed [facility] Vaccine Quad .5 mL [facility] 6+ MO Branch (FLUZONE/FLULAVAL/F LUARIX) Influenza Virus Unknown Completed [facility] Vaccine Quad .5 mL [facility] 6+ MO Branch (FLUZONE/FLULAVAL/F LUARIX) TDAP (ADACEL) Unknown Completed [facility]ACC[facility] Influenza Virus Unknown Completed [facility] Vaccine Recomb Quad [facility] , Preserv and ABX Branc h Free 18-64 YRS Influenza Virus Unknown Completed [facility] Vaccine [facility] Influenza Virus Unknown Completed [facility] Vaccine [facility] Influenza Virus Unknown Completed [facility] Vaccine Quad .5 mL [facility] 6+ MO Branch (FLUZONE/FLULAVAL/F LUARIX) Influenza Virus Unknown Completed [facility] Vaccine Quad .5 mL [facility] 6+ MO Branch (FLUZONE/FLULAVAL/F LUARIX) TDAP (ADACEL) Unknown Completed [facility] VACCINE [facility] Influenza Virus Unknown Completed [facility] Vaccine Recomb Quad [facility], Preserv and ABX Branc h Free 18-64 YRS Influenza Virus Unknown Completed [facility] Vaccine [facility] Influenza Virus Unknown Completed [facility]ine [facility] Influenza Virus Unknown Completed [facility] Vaccine Quad .5 mL [facility] 6+ MO Branch (FLUZONE/FLULAVAL/F LUARIX) Influenza Virus Unknown Completed [facility] Vaccine Quad .5 mL [facility] 6+ MO Branch (FLUZONE/FLULAVAL/F LUARIX) TDAP (ADACEL) Unknown Completed [facility] Influenza Virus Unknown Completed [facility] Vaccine Recomb Quad [facility], Preserv and ABX Branc h Free 18-64 YRS Influenza Virus Unknown Completed [facility] Vaccine [facility] Influenza Virus Unknown Completed [facility] Vaccine [facility] Influenza Virus Unknown Completed [facility] Vaccine Quad .5 mL [facility] 6+ MO Branch (FLUZONE/FLULAVAL/F LUARIX) Influenza Virus Unknown Completed [facility] Vaccine Quad .5 mL [facility] 6+ MO Branch (FLUZONE/FLULAVAL/F LUARIX) TDAP (ADACEL) Unknown Completed [facility] Influenza Virus Unknown Completed [facility] Vaccine Recomb Quad [facility], Preserv and ABX Branc h Free 18-64 YRS Influenza Virus Unknown Completed [facility] Vacc[facility] Influenza Virus Unknown Completed [facility] Vaccine Quad .5 mL [facility] 6+ MO Branch (FLUZONE/FLULAVAL/F LUARIX) TDAP (ADACEL) Unknown Completed University [facility]ACC[facility] Influenza Virus Unknown Completed [facility] Vaccine Recomb Quad [facility], Preserv and ABX Branc h Free 18-64 YRS Influenza Virus Unknown Completed [facility] Vaccine [facility] Influenza Virus Unknown Completed [facility] Vaccine Quad .5 mL [facility] 6+ MO Branch (FLUZONE/FLULAVAL/F LUARIX) TDAP (ADACEL) Unknown Completed [facility] Influenza Virus Unknown Completed [facility] Vaccine Recomb Quad [facility], Preserv and ABX Branc h Free 18-64 YRS Influenza Virus Unknown Completed [facility] Vaccine [facility] Influenza Virus Unknown Completed [facility] Vaccine Quad .5 mL [facility] 6+ MO Branch (FLUZONE/FLULAVAL/F LUARIX) TDAP (ADACEL) Unknown Completed [facility] Influenza Virus Unknown Completed [facility] Vaccine Recomb Quad [facility], Preserv and ABX Branc h Free 18-64 YRS Influenza Virus Unknown Completed [facility] Vaccine [facility] Influenza Virus Unknown Completed [facility] Vaccine Quad .5 mL [facility] 6+ MO Branch (FLUZONE/FLULAVAL/F LUARIX) TDAP (ADACEL) Unknown Completed [facility] Influenza Virus Unknown Completed [facility] Vaccine Recomb Quad [facility], Preserv and ABX Branc h Free 18-64 YRS Influenza Virus Unknown Completed [facility] Vaccine [facility] Influenza Virus Unknown Completed [facility] Vaccine Quad .5 mL [facility] 6+ MO Branch (FLUZONE/FLULAVAL/F LUARIX) TDAP (ADACEL) Unknown Completed [facility] Influenza Virus Unknown Completed [facility] of Vaccine Recomb Quad [facility] IM, Preserv and ABX Branc h Free 18-64 YRS Influenza Virus Unknown Completed [facility] Vaccine [facility] Influenza Virus Unknown Completed [facility] Vaccine Quad .5 mL [facility] 6+ MO Branch (FLUZONE/FLULAVAL/F LUARIX) TDAP (ADACEL) Unknown Completed [facility] Influenza Virus Unknown Completed [facility] of Vaccine Recomb Quad [facility], Preserv and ABX Branc h Free 18-64 YRS Influenza Virus Unknown Completed [facility] Vaccine [facility] Influenza Virus Unknown Completed [facility] Vaccine Quad .5 mL [facility] 6+ MO Branch (FLUZONE/FLULAVAL/F LUARIX) TDAP (ADACEL) Unknown Completed [facility] Influenza Virus Unknown Completed [facility] Vaccine Recomb Quad [facility], Preserv and ABX Branc h Free 18-64 YRS Influenza Virus Unknown Completed [facility] Vaccine [facility] Influenza Virus Unknown Completed [facility] Vaccine Quad .5 mL [facility] 6+ MO Branch (FLUZONE/FLULAVAL/F LUARIX) TDAP (ADACEL) Unknown Completed [facility] Influenza Virus Unknown Completed [facility] Vaccine Recomb Quad [facility], Preserv and ABX Branc h Free 18-64 YRS Influenza Virus Unknown Completed [facility] Vaccine [facility] Influenza Virus Unknown Completed [facility] Vaccine Quad .5 mL [facility] 6+ MO Branch (FLUZONE/FLULAVAL/F LUARIX) TDAP (ADACEL) Unknown Completed [facility] Influenza Virus Unknown Completed [facility] Vaccine Recomb Quad [facility], Preserv and ABX Branc h Free 18-64 YRS Influenza Virus Unknown Completed [facility] Vaccine [facility] Influenza Virus Unknown Completed [facility] Vaccine Quad .5 mL [facility] 6+ MO Branch (FLUZONE/FLULAVAL/F LUARIX) TDAP (ADACEL) Unknown Completed [facility] Influenza Virus Unknown Completed [facility] Vaccine Recomb Quad [facility], Preserv and ABX Branc h Free 18-64 YRS Influenza Virus Unknown Completed [facility] Vaccine [facility] Influenza Virus Unknown Completed [facility] of Vaccine Quad .5 mL [facility] 6+ MO Branch (FLUZONE/FLULAVAL/F LUARIX) TDAP (ADACEL) Unknown Completed [facility] Influenza Virus Unknown Completed [facility] Vaccine Recomb Quad [facility], Preserv and ABX Branc h Free 18-64 YRS Influenza Virus Unknown Completed [facility] Vaccine [facility] Influenza Virus Unknown Completed [facility] Vaccine Quad .5 mL [facility] 6+ MO Branch (FLUZONE/FLULAVAL/F LUARIX) TDAP (ADACEL) Unknown Completed [facility] Influenza Virus Unknown Completed [facility] Vaccine Recomb Quad [facility], Preserv and ABX Branc h Free 18-64 YRS Influenza Virus Unknown Completed [facility] Vaccine [facility] Influenza Virus Unknown Completed [facility] Vaccine Quad .5 mL [facility] 6+ MO Branch (FLUZONE/FLULAVAL/F LUARIX) TDAP (ADACEL) Unknown Completed [facility] Influenza Virus Unknown Completed [facility] Vaccine Recomb Quad [facility], Preserv and ABX Branc h Free 18-64 YRS Influenza Virus Unknown Completed [facility] Vaccine [facility] Influenza Virus Unknown Completed [facility] Vaccine Quad .5 mL [facility] 6+ MO Branch (FLUZONE/FLULAVAL/F LUARIX) TDAP (ADACEL) Unknown Completed [facility] VACCINE [facility] Influenza Virus Unknown Completed [facility] of Vaccine Recomb Quad [facility], Preserv and ABX Branc h Free 18-64 YRS Influenza Virus Unknown Completed [facility] Vacc[facility] Influenza Virus Unknown Completed [facility] Vaccine Quad .5 mL [facility] 6+ MO Branch (FLUZONE/FLULAVAL/F LUARIX) TDAP (ADACEL) Unknown Completed [facility] Influenza Virus Unknown Completed [facility] Vaccine Recomb Quad [facility], Preserv and ABX Branc h Free 18-64 YRS Influenza Virus Unknown Completed [facility] Influenza Virus Unknown Completed [facility] Vaccine Quad .5 mL [facility] 6+ MO Branch (FLUZONE/FLULAVAL/F LUARIX) TDAP (ADACEL) Unknown Completed [facility] Influenza Virus Unknown Completed [facility] Vaccine Recomb Quad [facility], Preserv and ABX Branc h Free 18-64 YRS Influenza Virus Unknown Completed [facility] Vaccine [facility] Influenza Virus Unknown Completed [facility] Vaccine Quad .5 mL [facility] 6+ MO Branch (FLUZONE/FLULAVAL/F LUARIX) TDAP (ADACEL) Unknown Completed [facility] Influenza Virus Unknown Completed [facility] Vaccine Recomb Quad [facility], Preserv and ABX Branc h Free 18-64 YRS Influenza Virus Unknown Completed [facility] Vaccine [facility] Influenza Virus Unknown Completed [facility] Vaccine Quad .5 mL [facility] 6+ MO Branch (FLUZONE/FLULAVAL/F LUARIX) TDAP (ADACEL) Unknown Completed [facility] Influenza Virus Unknown Completed [facility] Vaccine Recomb Quad [facility], Preserv and ABX Branc h Free 18-64 YRS Influenza Virus Unknown Completed [facility] Vaccine [facility] Influenza Virus Unknown Completed [facility] Vaccine Quad .5 mL [facility] 6+ MO Branch (FLUZONE/FLULAVAL/F LUARIX) TDAP (ADACEL) Unknown Completed [facility] Influenza Virus Unknown Completed [facility] Vaccine Recomb Quad [facility], Preserv and ABX Branc h Free 18-64 YRS Influenza Virus Unknown Completed [facility] Vaccine [facility] Influenza Virus Unknown Completed [facility] Vaccine Quad .5 mL [facility] 6+ MO Branch (FLUZONE/FLULAVAL/F LUARIX) TDAP (ADACEL) Unknown Completed [facility] Influenza Virus Unknown Completed [facility] Vaccine Recomb Quad [facility], Preserv and ABX Branc h Free 18-64 YRS Influenza Virus Unknown Completed [facility] Vaccine [facility] Influenza Virus Unknown Completed [facility] Vaccine Quad .5 mL [facility] 6+ MO Branch (FLUZONE/FLULAVAL/F LUARIX) TDAP (ADACEL) Unknown Completed [facility] Influenza Virus Unknown Completed [facility] Vaccine Recomb Quad [facility], Preserv and ABX Branc h Free 18-64 YRS Influenza Virus Unknown Completed [facility] Vaccine [facility] Influenza Virus Unknown Completed [facility] Vaccine Quad .5 mL [facility] 6+ MO Branch (FLUZONE/FLULAVAL/F LUARIX) TDAP (ADACEL) Unknown Completed [facility] Influenza Virus Unknown Completed [facility] Vaccine Recomb Quad [facility], Preserv and ABX Branc h Free 18-64 YRS Influenza Virus Unknown Completed [facility] Vaccine [facility] Influenza Virus Unknown Completed [facility] Vaccine Quad .5 mL [facility] 6+ MO Branch (FLUZONE/FLULAVAL/F LUARIX) TDAP (ADACEL) Unknown Completed [facility] Influenza Virus Unknown Completed [facility] of Vaccine Recomb Quad [facility], Preserv and ABX Branc h Free 18-64 YRS Influenza Virus Unknown Completed [facility] Vaccine [facility] Influenza Virus Unknown Completed [facility] Vaccine Quad .5 mL [facility] 6+ MO Branch (FLUZONE/FLULAVAL/F LUARIX) TDAP (ADACEL) Unknown Completed [facility] Influenza Virus Unknown Completed [facility] Vaccine Recomb Quad [facility], Preserv and ABX Branc h Free 18-64 YRS Influenza Virus Unknown Completed [facility] Vaccine [facility] Influenza Virus Unknown Completed [facility] Vaccine Quad .5 mL [facility] 6+ MO Branch (FLUZONE/FLULAVAL/F LUARIX) TDAP (ADACEL) Unknown Completed [facility] Influenza Virus Unknown Completed [facility] of Vaccine Recomb Quad [facility] IM, Preserv and ABX Branc h Free 18-64 YRS Influenza Virus Unknown Completed [facility] Vaccine [facility] Influenza Virus Unknown Completed [facility] Vaccine Quad .5 mL [facility] 6+ MO Branch (FLUZONE/FLULAVAL/F LUARIX) TDAP (ADACEL) Unknown Completed [facility] Influenza Virus Unknown Completed [facility] Vaccine Recomb Quad [facility], Preserv and ABX Branc h Free 18-64 YRS Influenza Virus Unknown Completed [facility] Vaccine [facility] Influenza Virus Unknown Completed [facility] Vaccine Quad .5 mL [facility] 6+ MO Branch (FLUZONE/FLULAVAL/F LUARIX) TDAP (ADACEL) Unknown Completed [facility] Influenza Virus Unknown Completed [facility] Vaccine Recomb Quad [facility], Preserv and ABX Branc h Free 18-64 YRS Influenza Virus Unknown Completed [facility] Vaccine [facility] Influenza Virus Unknown Completed [facility] Vaccine Quad .5 mL [facility] IM 6+ MO Branch (FLUZONE/FLULAVAL/F LUARIX) TDAP (ADACEL) Unknown Completed [facility] Influenza Virus Unknown Completed [facility] Vaccine Recomb Quad [facility], Preserv and ABX Branc h Free 18-64 YRS Influenza Virus Unknown Completed [facility] Vaccine [facility] Influenza Virus Unknown Completed [facility] Vaccine Quad .5 mL [facility] IM 6+ MO Branch (FLUZONE/FLULAVAL/F LUARIX) TDAP (ADACEL) Unknown Completed [facility] Influenza Virus Unknown Completed [facility] Vaccine Recomb Quad [facility], Preserv and ABX Branc h Free 18-64 YRS Influenza Virus Unknown Completed [facility] [place] Influenza Virus Unknown Completed [facility] Vaccine Quad .5 mL [facility] IM 6+ MO Branch (FLUZONE/FLULAVAL/F LUARIX) TDAP (ADACEL) Unknown Completed [facility] Influenza Virus Unknown Completed [facility] Vaccine Recomb Quad [facility], Preserv and ABX Branc h Free 18-64 YRS Influenza Virus Unknown Completed [facility] Vaccine [facility] Influenza Virus Unknown Completed [facility] Vaccine Quad .5 mL [facility] IM 6+ MO Branch (FLUZONE/FLULAVAL/F LUARIX) TDAP (ADACEL) Unknown Completed [facility] Influenza Virus Unknown Completed [facility] Vaccine Recomb Quad [facility], Preserv and ABX Branc h Free 18-64 YRS Influenza Virus Unknown Completed [facility] Vacc[facility] Influenza Virus Unknown Completed [facility] Vaccine Quad .5 mL [facility] IM 6+ MO Branch (FLUZONE/FLULAVAL/F LUARIX) TDAP (ADACEL) Unknown Completed [facility] Influenza Virus Unknown Completed [facility] Vaccine Recomb Quad [facility], Preserv and ABX Branc h Free 18-64 YRS Influenza Virus Unknown Completed [facility] Vacc[facility] Influenza Virus Unknown Completed [facility] Vaccine Quad .5 mL [facility] IM 6+ MO Branch (FLUZONE/FLULAVAL/F LUARIX) TDAP (ADACEL) Unknown Completed [facility] Influenza Virus Unknown Completed [facility] of Vaccine Recomb Quad [facility], Preserv and ABX Branc h Free 18-64 YRS Influenza Virus Unknown Completed [facility] Vaccine [facility] Influenza Virus Unknown Completed [facility] of Vaccine Quad .5 mL [facility] IM 6+ MO Branch (FLUZONE/FLULAVAL/F LUARIX) TDAP (ADACEL) Unknown Completed [facility] Influenza Virus Unknown Completed [facility] of Vaccine Recomb Quad [facility], Preserv and ABX Branc h Free 18-64 YRS Influenza Virus Unknown Completed [facility] Vaccine [facility] Influenza Virus Unknown Completed [facility] of Vaccine Quad .5 mL [facility] IM 6+ MO Branch (FLUZONE/FLULAVAL/F LUARIX) TDAP (ADACEL) Unknown Completed [facility] Influenza Virus Unknown Completed [facility] Vaccine Recomb Quad [facility], Preserv and ABX Branc h Free 18-64 YRS Influenza Virus Unknown Completed [facility] Vaccine [facility] Influenza Virus Unknown Completed [facility] Vaccine Quad .5 mL [facility] IM 6+ MO Branch (FLUZONE/FLULAVAL/F LUARIX) TDAP (ADACEL) Unknown Completed [facility] Influenza Virus Unknown Completed [facility] Vaccine Quad .5 mL [facility] IM 6+ MO Branch (FLUZONE/FLULAVAL/F LUARIX) TDAP (ADACEL) Unknown Completed [facility] Influenza Virus Unknown Completed [facility]it y of Vaccine Quad .5 mL [facility] IM 6+ MO Branch (FLUZONE/FLULAVAL/F LUARIX) TDAP (ADACEL) Unknown Completed [facility] Influenza Virus Unknown Completed [facility] of Vaccine Quad .5 mL [facility] IM 6+ MO Branch (FLUZONE/FLULAVAL/F LUARIX) TDAP (ADACEL) Unknown Completed [facility] Influenza Virus Unknown Completed [facility] of Vaccine Quad .5 mL [facility] IM 6+ MO Branch (FLUZONE/FLULAVAL/F LUARIX) TDAP (ADACEL) Unknown Completed [facility] Influenza Virus Unknown Completed [facility] of Vaccine Quad .5 mL [facility] IM 6+ MO Branch (FLUZONE/FLULAVAL/F LUARIX) TDAP (ADACEL) Unknown Completed [facility] Influenza Virus Unknown Completed [facility] of Vaccine Quad .5 mL [facility] IM 6+ MO Branch (FLUZONE/FLULAVAL/F LUARIX) TDAP (ADACEL) Unknown Completed [facility] Influenza Virus Unknown Completed [facility] of Vaccine Quad .5 mL [facility] IM 6+ MO Branch (FLUZONE/FLULAVAL/F LUARIX) TDAP (ADACEL) Unknown Completed [facility] Influenza Virus Unknown Completed [facility] of Vaccine Quad .5 mL [facility] IM 6+ MO Branch (FLUZONE/FLULAVAL/F LUARIX) TDAP (ADACEL) Unknown Completed [facility] Vital Signs Vital Name Observation Time Observation Value Comments Source Systolic blood 2023-01-15 16:56:00 132 [facility] Diastolic blood 2023-01-15 16:56:00 91 mm[Hg] [facility] Heart rate 2023-01-15 16:56:00 67 [facility] Body temperature 2023-01-15 16:56:00 36.78 Irene [facility] 2023-01-15 16:56:00 20 /min [facility] Oxygen saturation in 2023-01-15 16:56:00 100 /min [facility] Arterial blood by [facility] Pulse oximetry Branch Body height 2023-01-12 09:05:00 154.9 cm [facility] Body weight 2023-01-12 09:05:00 58.968 kg [facility] BMI 2023-01-12 09:05:00 24.56 kg/m2 [facility] Systolic blood 2022-11-21 21:40:00 122 mm[Hg] Univer sity of pressure [facility] Diastolic blood 2022-11-21 21:40:00 90 mm[Hg] Unive rsity of pressure [facility] Heart rate 2022-11-21 21:40:00 92 /min [facility] Respiratory rate 2022-11-21 21:40:00 16 /min Univ ersity of [facility] Oxygen saturation in 2022-11-21 21:40:00 99 /min [facility] Pulse oximetry [facility] Body temperature 2022-11-21 18:07:00 37.28 [place] [facility] ers[facility] Body weight 2022-11-21 18:07:00 68.04 kg [facility] BMI 2022-11-21 18:07:00 28.34 kg/m2 [facility] Systolic blood 2022-09-05 17:22:00 139 mm[Hg] Univer sity of pressure [facility] Diastolic blood 2022-09-05 17:22:00 91 mm[Hg] Unive rsity of pressure [facility] Heart rate 2022-09-05 17:22:00 120 /min [facility] Respiratory rate 2022-09-05 17:22:00 18 /min Univ ersity [facility] Oxygen saturation in 2022-09-05 17:22:00 99 /min [facility] blood by [facility] Pulse oximetry [facility] Body temperature 2022-09-05 13:43:00 37.11 Irene [facility] Body weight 2022-09-05 13:43:00 68.04 kg [facility] BMI 2022-09-05 13:43:00 28.34 kg/m2 [facility] Systolic blood 2022-08-01 00:49:00 138 mm[Hg] Univer sity of pressure [facility] Diastolic blood 2022-08-01 00:49:00 104 mm[Hg] Unive rsity of pressure [facility] Heart rate 2022-08-01 00:49:00 108 /min [facility] Respiratory rate 2022-08-01 00:49:00 18 /min Univ ersity [facility] Oxygen saturation in 2022-08-01 00:49:00 99 /min [facility] by [facility] Pulse oximetry [facility] Body temperature 2022-07-31 22:52:00 37.11 Irene [facility] Body height 2022-07-31 22:52:00 154.9 cm [facility] Body weight 2022-07-31 22:52:00 68.04 kg [facility] BMI 2022-07-31 22:52:00 28.34 kg/m2 [facility] Systolic blood 2022-07-15 15:32:00 130 mm[Hg] Univer sity of pressure [facility] Diastolic blood 2022-07-15 15:32:00 90 mm[Hg] Unive rsity of pressure [facility] Heart rate 2022-07-15 15:31:00 81 /min [facility] Body temperature 2022-07-15 15:31:00 36.94 Irene [facility] ers[facility] Respiratory rate 2022-07-15 15:31:00 16 /min Univ ers[facility] Body weight 2022-07-15 15:31:00 68.493 kg [facility] BMI 2022-07-15 15:31:00 28.53 kg/m2 [facility] Oxygen saturation in 2022-07-15 15:31:00 99 /min [facility] of Arterial blood by [facility] yessi Pulse oximetry Branch Systolic blood 2022-06-23 15:26:00 111 mm[Hg] Univer sity of pressure [facility] Diastolic blood 2022-06-23 15:26:00 75 mm[Hg] Unive rsity of pressure [facility] Heart rate 2022-06-23 15:26:00 108 /min [facility] Body temperature 2022-06-23 15:26:00 36.83 Irene [facility] Respiratory rate 2022-06-23 15:26:00 18 /min Univ ersity [facility] Body height 2022-06-23 15:26:00 154.9 cm [facility] Body weight 2022-06-23 15:26:00 71.385 kg [facility] BMI 2022-06-23 15:26:00 29.74 kg/m2 [facility] Oxygen saturation in 2022-06-23 15:26:00 99 /min [facility] of Arterial blood by [facility] yessi Pulse oximetry Branch Systolic blood 2022-05-05 22:05:00 126 mm[Hg] Univer sity of pressure [facility] Diastolic blood 2022-05-05 22:05:00 75 mm[Hg] Unive rsity of pressure [facility] Heart rate 2022-05-05 22:05:00 99 /min [facility] Respiratory rate 2022-05-05 22:05:00 16 /min Univ ersity [facility] Oxygen saturation in 2022-05-05 22:05:00 99 /min [facility] of Arterial blood by [facility] Pulse oximetry Branch Body temperature 2022-05-05 18:24:00 37.11 Irene Univ ers[facility] Body height 2022-05-05 18:24:00 154.9 cm [facility] Body weight 2022-05-05 18:24:00 54.432 kg [facility] BMI 2022-05-05 18:24:00 22.67 kg/m2 [facility] Systolic blood 2022-04-26 14:28:00 135 mm[Hg] Univer sity of pressure [facility] Diastolic blood 2022-04-26 14:28:00 95 mm[Hg] Unive rsity of pressure [facility] Heart rate 2022-04-26 14:28:00 93 /min [facility] Body temperature 2022-04-26 14:28:00 36.89 Irene [facility] ers[facility] Respiratory rate 2022-04-26 14:28:00 18 /min Univ ers[facility] Body height 2022-04-26 14:28:00 154.9 cm [facility] Body weight 2022-04-26 14:28:00 54.432 kg [facility] BMI 2022-04-26 14:28:00 22.67 kg/m2 [facility] Oxygen saturation in 2022-04-26 14:28:00 100 /min University of Arterial blood by [facility] Pulse oximetry Branch Systolic blood 2022-04-26 00:21:00 151 mm[Hg] Univer sity of pressure [facility] Diastolic blood 2022-04-26 00:21:00 98 mm[Hg] Unive rsity of pressure [facility] Heart rate 2022-04-26 00:21:00 98 /min [facility] Body temperature 2022-04-26 00:21:00 36.72 Irene [facility] ers[facility] Respiratory rate 2022-04-26 00:21:00 18 /min Univ ers[facility] Body height 2022-04-26 00:21:00 154.9 cm [facility] Body weight 2022-04-26 00:21:00 54.432 kg [facility] BMI 2022-04-26 00:21:00 22.67 kg/m2 [facility] Oxygen saturation in 2022-04-26 00:21:00 100 /min [facility] of Arterial blood by [facility] Pulse oximetry Branch Systolic blood 2022-04-09 14:39:00 122 mm[Hg] Univer sity of pressure [facility] Diastolic blood 2022-04-09 14:39:00 84 mm[Hg] Unive rsity of pressure [facility] Heart rate 2022-04-09 14:39:00 96 /min [facility] Body height 2022-04-09 14:39:00 154.9 cm [facility] Body weight 2022-04-09 14:39:00 60.328 kg [facility] BMI 2022-04-09 14:39:00 25.13 kg/m2 [facility] Oxygen saturation in 2022-04-09 14:39:00 98 /min [facility] of Arterial blood by [facility] yessi Pulse oximetry Branch Systolic blood 2022-04-07 22:43:36 131 mm[Hg] Univer sity of pressure [facility] Diastolic blood 2022-04-07 22:43:36 83 mm[Hg] Unive rsity of pressure [facility] Heart rate 2022-04-07 22:43:36 113 /min [facility] Respiratory rate 2022-04-07 22:43:36 18 /min Univ ersity of [facility] Oxygen saturation in 2022-04-07 22:43:36 97 /min [facility] of Arterial blood by [place] [employer] yessi Pulse oximetry Branch Body temperature 2022-04-07 19:41:00 37.17 Irene [facility] ers[facility] Body height 2022-04-07 19:41:00 154.9 cm [facility] Body weight 2022-04-07 19:41:00 60.328 kg [facility] BMI 2022-04-07 19:41:00 25.13 kg/m2 [facility] Systolic blood 2022-03-24 19:00:00 125 mm[Hg] Univer sity of pressure [facility] Diastolic blood 2022-03-24 19:00:00 86 mm[Hg] Unive rsity of pressure [facility] Heart rate 2022-03-24 19:00:00 93 /min [facility] Respiratory rate 2022-03-24 19:00:00 17 /min Univ ersity of [facility] Oxygen saturation in 2022-03-24 19:00:00 97 /min University of Arterial blood by [facility] yessi Pulse oximetry Branch Body temperature 2022-03-24 13:33:00 36.78 Irene [facility] Systolic blood 2022-03-15 19:23:00 128 mm[Hg] Univer sity of pressure [facility] Diastolic blood 2022-03-15 19:23:00 89 mm[Hg] Unive rsity of pressure [facility] Heart rate 2022-03-15 19:23:00 104 /min [facility] Body weight 2022-03-15 19:23:00 60.328 kg [facility] BMI 2022-03-15 19:23:00 25.13 kg/m2 [facility] Oxygen saturation in 2022-03-15 19:23:00 98 /min [facility] blood by [facility] Pulse oximetry [facility] Systolic blood 2022-03-15 15:02:00 115 mm[Hg] Univer sity of pressure [facility] Diastolic blood 2022-03-15 15:02:00 70 mm[Hg] Unive rsity of pressure [facility] Heart rate 2022-03-15 15:02:00 85 /min [facility] Respiratory rate 2022-03-15 15:02:00 20 /min Univ ersity of [facility] Oxygen saturation in 2022-03-15 15:02:00 99 /min [facility] of Arterial blood by [facility] yessi Pulse oximetry Branch Body temperature 2022-03-15 13:38:00 36.94 Irene [facility] Body height 2022-03-15 13:38:00 154.9 cm [facility] Body weight 2022-03-15 13:38:00 54.432 kg [facility] BMI 2022-03-15 13:38:00 22.67 kg/m2 [facility] Systolic blood 2022-03-11 16:30:00 124 mm[Hg] Univer sity of pressure [facility] Diastolic blood 2022-03-11 16:30:00 88 mm[Hg] Unive rsity of pressure [facility] Heart rate 2022-03-11 16:30:00 93 /min [facility] Body temperature 2022-03-11 16:30:00 36.67 Irene [facility] Respiratory rate 2022-03-11 16:30:00 14 /min Univ ers[facility] Oxygen saturation in 2022-03-11 16:30:00 100 /min [facility] Arterial blood by [facility] [employer] yessi Pulse oximetry Branch Body height 2022-03-11 14:19:00 154.9 cm [facility] Body weight 2022-03-11 14:19:00 58.968 kg [facility] BMI 2022-03-11 14:19:00 24.56 kg/m2 [facility] Systolic blood 2022-02-27 14:14:00 140 mm[Hg] Univer sity of pressure [facility] Diastolic blood 2022-02-27 14:14:00 90 [...] 99 /min [facility] blood by [facility] Pulse oximetry [facility] Systolic blood 2022-02-21 08:06:00 135 mm[Hg] Univer sity of pressure [facility] Diastolic blood 2022-02-21 08:06:00 97 mm[Hg] Unive rsity of pressure [facility] Heart rate 2022-02-21 08:06:00 98 /min [facility] Respiratory rate 2022-02-21 08:06:00 16 /min Univ ersity of [facility] Oxygen saturation in 2022-02-21 08:06:00 97 /min [facility] Ar[facility]ial blood by [facility] Pulse oximetry [facility] Body temperature 2022-02-21 06:16:00 36.94 Irene [facility] Body height 2022-02-21 06:16:00 154.9 cm [facility] Body weight 2022-02-21 06:16:00 60.963 kg [facility] BMI 2022-02-21 06:16:00 25.39 kg/m2 [facility] Systolic blood 2022 20:08:00 136 mm[Hg] Univer sity of pressure [facility] Diastolic blood 2022 20:08:00 96 mm[Hg] Unive rsity of pressure [facility] Heart rate 2022 20:08:00 100 /min [facility] Respiratory rate 2022 20:08:00 20 /min Univ ersity [facility] Oxygen saturation in 2022 20:08:00 98 /min University of Arterial blood by [employer] Pulse oximetry Branch Body temperature 2022 16:56:00 37.06 Irene [facility] Body weight 2022 16:56:00 54.432 kg [facility] BMI 2022 16:56:00 22.67 kg/m2 [facility] Systolic blood 2022-02-05 14:31:00 128 mm[Hg] Univer sity of pressure [facility] Diastolic blood 2022-02-05 14:31:00 84 mm[Hg] Unive rsity of pressure [facility] Heart rate 2022-02-05 14:31:00 86 /min [facility] Body temperature 2022-02-05 14:31:00 37.89 Irene [facility] Respiratory rate 2022-02-05 14:31:00 18 /min [facility] ers[facility] Body height 2022-02-05 14:31:00 154.9 cm [facility] Body weight 2022-02-05 14:31:00 54.432 kg [facility] BMI 2022-02-05 14:31:00 22.67 kg/m2 [facility] Oxygen saturation in 2022-02-05 14:31:00 98 /min [facility] of Arterial blood by [facility] Pulse oximetry Branch Systolic blood 2022-01-18 14:50:00 144 mm[Hg] Univer sity of pressure [facility] Diastolic blood 2022-01-18 14:50:00 92 mm[Hg] Unive rsity of pressure [facility] Heart rate 2022-01-18 14:50:00 94 /min [facility] Respiratory rate 2022-01-18 14:50:00 20 /min Univ ers[facility] Oxygen saturation in 2022-01-18 14:50:00 99 /min [facility] of Arterial blood by [facility] Pulse oximetry Branch Body weight 2022-01-18 10:18:00 54.432 kg [facility] BMI 2022-01-18 10:18:00 22.67 kg/m2 [facility] Body temperature 2022-01-18 10:15:00 36.72 Irene [facility] Systolic blood 2022-01-15 15:48:26 125 mm[Hg] Univer sity of pressure [facility] Diastolic blood 2022-01-15 15:48:26 85 mm[Hg] Unive rsity of pressure [facility] Heart rate 2022-01-15 15:48:26 95 /min [facility] Respiratory rate 2022-01-15 15:48:26 18 /min Univ ers[facility] Oxygen saturation in 2022-01-15 15:48:26 98 /min [facility] of Arterial blood by [facility] Pulse oximetry Branch Body temperature 2022-01-15 13:32:00 37.11 Irene [facility] Body height 2022-01-15 13:32:00 154.9 cm [facility] Body weight 2022-01-15 13:32:00 54.432 kg [facility] BMI 2022-01-15 13:32:00 22.67 kg/m2 [facility] Systolic blood 2022-01-09 00:37:11 127 mm[Hg] Univer sity of pressure [facility] Diastolic blood 2022-01-09 00:37:11 90 mm[Hg] Unive rsity of pressure [facility] Heart rate 2022-01-09 00:37:11 94 /min [facility] Body temperature 2022-01-09 00:37:11 37.11 Irene [facility] Respiratory rate 2022-01-09 00:37:11 16 /min [facility] Oxygen saturation in 2022-01-09 00:37:11 97 /min [facility] of Arterial blood by [facility] Pulse oximetry Branch Body height 2022-01-08 23:03:00 154.9 cm [facility] Body weight 2022-01-08 23:03:00 58.06 kg [facility] BMI 2022-01-08 23:03:00 24.19 kg/m2 [facility] Systolic blood 2021-12-12 18:00:00 126 mm[Hg] Univer sity of pressure [facility] Diastolic blood 2021-12-12 18:00:00 87 mm[Hg] Unive rsity of pressure [facility] Heart rate 2021-12-12 18:00:00 86 /min [facility] Body temperature 2021-12-12 18:00:00 36.89 Irene [facility] Respiratory rate 2021-12-12 18:00:00 18 /min [facility] Body height 2021-12-12 18:00:00 154.9 cm [facility] Body weight 2021-12-12 18:00:00 57.153 kg [facility] BMI 2021-12-12 18:00:00 23.81 kg/m2 [facility] Systolic blood 2023-01-14 16:32:00 138 mm[Hg] Univer sity of pressure [facility] Diastolic blood 2023-01-14 16:32:00 84 mm[Hg] Unive rsity of pressure [facility] Heart rate 2023-01-14 16:32:00 67 /min [facility] Body temperature 2023-01-14 16:32:00 36.5 Irene [facility] Respiratory rate 2023-01-14 16:32:00 16 /min [facility] Oxygen saturation in 2023-01-14 16:32:00 99 /min [facility] of Arterial blood by [facility] Pulse oximetry [place] Body height 2023-01-12 09:05:00 154.9 cm [facility] Body weight 2023-01-12 09:05:00 58.968 kg [facility] BMI 2023-01-12 09:05:00 24.56 kg/m2 [facility] Procedures Procedure Date / Time Performing Clinician Source Performed PHOSPHORUS 2023-01-15 08:15:00 Benita Rockwell [facility] MAGNESIUM 2023-01-15 08:15:00 Benita Rockwell [facility] BASIC METABOLIC PANEL 2023-01-15 08:15:00 Benita Rockwell [facility] versity [facility] (NA, K, CL, CO2, GLUCOSE, Medica l Branch BUN, CREATININE, [place]) CBC WITH DIFF 2023-01-15 08:15:00 Benita Rockwell [facility] PROTHROMBIN TIME / INR 2023-01-15 08:15:[facility]-14 10:14:00 Benita Rockwell [facility] PHOSPHORUS 2023-01-14 10:14:00 Benita Rockwell Daphnie [facility] BASIC METABOLIC PANEL 2023-01-14 10:14:00 Benita Rockwell [facility] (NA, K, CL, CO2, GLUCOSE, Medica l Branch BUN, CREATININE, CA) CBC WITH DIFF 2023-01-14 10:14:00 Benita Rockwell [facility] PHOSPHORUS 2023-01-14 10:14:00 Benita Rockwell [facility] MAGNESIUM 2023-01-14 10:14:00 Benita Rockwell [facility] BASIC METABOLIC PANEL 2023-01-14 10:14:00 Benita Rockwell [facility] (NA, K, CL, CO2, GLUCOSE, Medica l Branch BUN, CREATININE, CA) CBC WITH DIFF 2023-01-14 10:14:00 Hill, Benita [facility] CBC WITH DIFF 2023-01-13 10:45:00 Vaishnavi, [facility] BASIC METABOLIC PANEL 2023-01-13 10:45:00 Vaishnavi, [facility] (NA, K, CL, CO2, GLUCOSE, Medica l Branch BUN, CREATININE, CA) MAGNESIUM 2023-01-13 10:45:00 Vaishnavi, [facility] PHOSPHORUS 2023-01-13 10:45:00 Vaishnavi, [facility] HEPATIC FUNCTION PANEL 2023-01-13 10:45:00 Vaishnavi, [facility] ([id number]) (ALB,T.PRO,BILI Medical Branch T,BU/BC,ALT,AST,ALK PHOS) PHOSPHORUS 2023-01-13 10:45:00 Vaishnavi, [facility] MAGNESIUM 2023-01-13 10:45:00 Vaishnavi, [facility] HEPATIC FUNCTION PANEL 2023-01-13 10:45:00 Vaishnavi, [facility] ([id number]) (ALB,T.PRO,BILI [facility] [place] T,BU/BC,ALT,AST,ALK PHOS) BASIC METABOLIC PANEL 2023-01-13 10:45:00 Vaishnavi, [facility] (NA, K, CL, CO2, GLUCOSE, Medica l Branch BUN, CREATININE, CA) CBC WITH DIFF 2023-01-13 10:45:00 Vaishnavi, [facility] GLUCOSE BODY FLUID 2023-01-12 20:44:00 VaishnaviRodolfo wade [facility] BODY FLUID MANUAL DIFF 2023-01-12 20:44:00 Vaishnavi, [facility] T.PROTEIN BODY FLUID 2023-01-12 20:44:00 Rodolfo Riggins [facility] ASPIRATE OR ABSCESS 2023-01-12 20:44:00 VaishnaviRodolfo wade [facility] CULTURE(AEROBIC/ANAEROBIC Medica l Branch ) LDH TOTAL BODY FLUID 2023-01-12 20:44:00 VaishnaviRodolfo wade [facility] GLUCOSE BODY FLUID 2023-01-12 20:44:00 Vaishnavi, [facility] T.PROTEIN BODY FLUID 2023-01-12 20:44:00 VaishnaviRodolfo [facility] BODY FLUID DIRECT COUNT 2023-01-12 20:44:00 VaishnaviRodolfo l [facility] ASPIRATE OR ABSCESS 2023-01-12 20:44:00 [facility]olfo [facility] C[facility]OB[facility]OBIC [facility] ) LDH TOTAL BODY FLUID 2023-01-12 20:44:[address] [facility] PROTHROMBIN TIME / INR 2023-01-12 08:13:00 VaishnaviRodolfo [facility] PROTHROMBIN TIME / INR 2023-01-12 08:13:00 Vaishnavi, Rodolfo Sanchez [facility] COMP. METABOLIC PANEL 2023-01-12 03:49:00 Ciera García [facility] ([id number]) [facility] COMP. METABOLIC PANEL 2023-01-12 03:49:00 Ciera García [facility] ([id number]) [facility] CT ABDOMEN PELVIS W 2023-01-12 03:32:06 Ciera García [facility] CONTRAST [facility] CT ABDOMEN PELVIS W 2023-01-12 03:32:06 Ciera García [facility] POCT TEST 2023-01-12 03:02:00 Ciera García [facility] POCT TEST 2023-01-12 03:02:00 Ciera García [facility] URINALYSIS 2023-01-12 02:56:00 Ciera García [facility] LIPASE 2023-01-12 02:56:00 Ricky [facility] TOTAL BETA HCG ASSAY 2023-01-12 02:56:00 Ciera García [facility] CBC WITH DIFF 2023-01-12 02:56:00 Ricky [facility] EXTRA TUBE ORANGE 2023-01-12 02:56:00 Artur [facility] EXTRA TUBE LAV 2023-01-12 02:56:00 Artur [facility] LIPASE 2023-01-12 02:56:00 Ricky [facility] TOTAL BETA HCG ASSAY 2023-01-12 02:56:00 Ciera García [facility] CBC WITH DIFF 2023-01-12 02:56:00 Ricky [facility] URINALYSIS 2023-01-12 02:56:00 Ricky [facility] EXTRA TUBE LAV 2023-01-12 02:56:00 Artur [facility] EXTRA TUBE ORANGE 2023-01-12 02:56:00 Artur [facility] CONSENT/REFUSAL FOR 2023-01-12 01:46:10 Doctor Unassigned, No [facility] [place] [facility] Name Medical Branch CONSENT/REFUSAL FOR 2023-01-12 01:46:10 Doctor Unassigned, No [facility] [place] DI[facility] TREATMENT Name Medical Branch ASSIGNMENT OF BENEFITS 2022-11-21 19:49:02 Doctor Unassigned, No [facility] ASSIGNMENT OF BENEFITS 2022-11-21 19:49:02 Doctor Unassigned, No [facility] CONSENT/REFUSAL FOR 2022-11-21 18:03:25 Doctor Unassigned, No [facility] [place] DIAGNOSIS AND TREATMENT Name Medical Branch CONSENT/REFUSAL FOR 2022-11-21 18:03:25 Doctor Unassigned, No [facility] [place] DIAGNOSIS [facility] TREATMENT Name [facility] [place] EMERGENCY SERVICES 2022-11-21 05:01:00 Doctor Unassigned, No Uni versity [facility] AGREEMENTS AND Name Medical Branch AUTHORIZATIONS CONSENT/REFUSAL FOR 2022-09-05 13:42:02 Doctor Unassigned, No [facility] [place] DIAGNOSIS [facility] TREATMENT Name Medical Branch LIPASE 2022-07-31 23:13:00 Manju Newell [facility] TEST, SERUM 2022-07-31 23:13:00 Manju Newell [facility] [place] [facility] COMP. METABOLIC PANEL 2022-07-31 23:13:00 Manju Newell Un [facility] ([id number]) [facility] CBC WITH DIFF 2022-07-31 23:13:00 Manju Newell [facility] CONSENT/REFUSAL FOR 2022-07-31 22:49:17 Doctor Unassigned, No Un [facility] DIAGNOSIS AND TREATMENT Name [facility] [place] XR ANKLE 3+ VW RIGHT 2022-07-15 16:00:00 Cari Perdomo [facility] XR FOOT 3+ VW RIGHT 2022-07-15 16:00:00 [facility] XR FOOT 3+ VW RIGHT 2022-07-15 16:00:00 [facility] PATIENT FINANCIAL 2022-07-15 15:25:53 Doctor Unassigned, No [facility] POLICY [facility] POCT MOLECULAR STREP 2022-06-23 16:06:00 Unknown, Attending [facility] ASSIGNMENT OF BENEFITS 2022-06-23 15:18:28 Doctor Unassigned, No [facility] COMP. METABOLIC PANEL 2022-05-05 19:14:00 Karon Norton [facility] ([id number]) [facility] CBC WITH DIFF 2022-05-05 19:14:00 Karon Norton [facility] POCT TEST 2022-05-05 19:00:00 Karon Norton [facility] URINALYSIS 2022-05-05 18:58:00 Karon Norton [facility] CT ABDOMEN PELVIS WO 2022-04-26 15:11:00 Zion Bridges [facility] CONTRAST [facility] COMP. METABOLIC PANEL 2022-04-26 14:49:00 Zion Bridges [facility] ([id number]) [facility] CBC WITH DIFF 2022-04-26 14:49:00 Singer [facility] URINALYSIS 2022-04-26 14:49:00 Singer [facility] POCT TEST 2022-04-26 14:45:00 Zion Bridges [facility] CONSENT/REFUSAL FOR 2022-04-26 14:22:29 Doctor Unassigned, No [facility] [place] DI[facility] TREATMENT Name Medical Branch POCT TEST 2022-04-26 01:22:00 Zion Bridges [facility] ASSIGNMENT OF BENEFITS 2022-04-26 00:54:02 Doctor Unassigned, No [facility] URINALYSIS 2022-04-26 00:45:00 Singer [facility] CONSENT/REFUSAL FOR 2022-04-26 00:16:47 Doctor Unassigned, No [facility] [place] DI[facility] TREATMENT Name [facility] [place] BASIC METABOLIC PANEL 2022-04-07 22:35:00 Olamide Garvin [facility] (NA, K, CL, CO2, GLUCOSE, Medica l Branch BUN, CREATININE, [place]) CBC WITH DIFF 2022-04-07 22:35:00 Olamide Garvin [facility] URINALYSIS 2022-04-07 21:36:00 Olamide Garvin [facility] URINE DRUG (IMMUNOASSAY) 2022-04-07 21:36:00 Olamide Garvin [facility] [place] [facility] DRUG Medical Bra nch SCREEN W/O REFLEX CONSENT/REFUSAL FOR 2022-04-07 19:29:15 Doctor Unassigned, No [facility] [place] DI[facility] TREAT[facility] Name [facility] [place] POCT TEST 2022-03-24 14:07:00 [facility]REFUSAL FOR 2022-03-24 13:27:20 Doctor Unassigned, No [facility] [place] DI[facility] TREATMENT [facility] [place] CT ABDOMEN PELVIS WO 2022-03-15 14:09:04 Anna Gould [facility] CONTRAST [facility] URINALYSIS 2022-03-15 13:53:00 [facility] 2022-03-15 13:52:00 Anna Gould [facility] CONSENT/REFUSAL FOR 2022-03-15 13:37:02 Doctor Unassigned, No [facility] [place] DIAGNOSIS AND TREATMENT Name Medical Branch POCT TEST 2022-03-11 14:59:00 Angelica Viveros [facility] FLU VACC ([id number]), 6 2022-02-27 13:34:55 Vijay Martinez [facility] MO-64 YRS, .5ML, IM, QUAD Medica l Branch (FLUCELVAX) NOTICE OF PRIVACY 2022-02-21 06:06:30 Doctor Unassigned, No [facility] PRACTICES Name Medical Branch CONSENT/REFUSAL FOR 2022-02-21 06:03:41 Doctor Unassigned, No [facility] Name [facility] [place] XR ANKLE <3 VW RIGHT 2022 17:56:42 Maggie Hamilton [facility] CT ABDOMEN PELVIS W 2022 17:44:17 Maggie Hamilton [facility] CT TRAUMA CERVICAL SPINE 2022 17:43:49 Maggie Hamilton [facility] CONTRAST [facility] POCT TEST 2022 17:27:00 Maggie Hamilton [facility] COMP. METABOLIC PANEL 2022 17:17:00 Maggie Hamilton [facility] ([id number]) [facility] CBC WITH DIFF 2022 17:17:00 Maggie Hamilton [facility] CONSENT/REFUSAL FOR 2022 16:53:13 Doctor Unassigned, No [facility] Name [facility] [place] US GALL BLADDER 2022-01-18 12:31:09 Bernardo Levy Greig o f [facility] US PELVIS COMPLETE WITH 2022-01-18 12:21:13 Melvin Zhao [facility] TRANSVAGINAL [facility] Branch CT ABDOMEN PELVIS W 2022-01-18 11:20:50 Melvin Zhao [facility] CONTRAST [facility] POCT TEST 2022-01-18 10:57:00 Jayy Kennedy [facility] COVID-19 (ID NOW RAPID 2022-01-18 10:57:00 Jayy Kennedy [facility] TESTING) Medical Branch URINALYSIS 2022-01-18 10:47:00 Brent [facility] LIPASE 2022-01-18 10:29:00 Brent [facility] Torrie [facility] TEST, SERUM 2022-01-18 10:29:00 [facility] HEPATIC FUNCTION PANEL 2022-01-18 10:29:00 Brent Jayy Torrie [facility] ([id number]) (ALB,T.PRO,BILI Medical Branch T,BU/BC,ALT,AST,ALK PHOS) BASIC METABOLIC PANEL 2022-01-18 10:29:00 [facility] (NA, K, CL, CO2, GLUCOSE, Medica l Branch BUN, CREATININE, CA) CBC WITH DIFF 2022-01-18 10:29:00 Wright [facility] CONSENT/REFUSAL FOR 2022-01-18 10:13:31 Doctor Unassigned, No [facility]ATMENT Name [facility] CT HEAD WO CONTRAST 2022-01-15 15:22:[address] [facility] TEST, SERUM 2022-01-15 14:36:00 Danita [facility] BASIC METABOLIC PANEL 2022-01-15 14:36:00 Danita [facility] (NA, K, CL, CO2, GLUCOSE, Medica l Branch BUN, CREATININE, CA) CBC WITH DIFF 2022-01-15 14:36:00 Danita [facility] CONSENT/REFUSAL FOR 2022-01-15 13:28:12 Doctor Unassigned, No [facility]REATMENT Name [facility] XR CERVICAL SPINE 4 VW 2022-01-09 00:29:16 Gabriela [facility] XR LUMBAR SPINE 4 VW 2022-01-09 00:29:16 Gabriela [facility] XR SPINE THORACIC 3 VW 2022-01-09 00:29:16 Gabriela [facility] URINALYSIS 2022-01-08 23:50:00 Gabriela [facility] CONSENT/REFUSAL FOR 2022-01-08 22:51:08 Doctor Unassigned, No Un [facility] DIAGNOSIS AND TREATMENT Name Medical Branch GALV ONLY - VAGINAL 2021-12-12 18:37:00 Prasanna Vargas [facility] PATHOGENS BY NUCLEIC ACID Medica l Branch TESTING URINE CULTURE 2021-12-12 18:32:00 Prasanna Vargas Greig o f [facility] POCT TEST 2021-12-12 18:31:00 Prasanna Vargas [facility] POCT URINALYSIS W/O 2021-12-12 18:31:00 Prasanna Vargas [facility] SPECIFIC GRAVITY Medical Branch Encounters Start End Encounter Admission Attending Care Care Encounter Source Date/Time Date/Time Type Type Clinicians Facility Department ID 2021-03-14 Emergency [facility] [id number] Univers 03:14:31 ity of [facility] 2021-03-13 Emergency [facility] [id number] Univers 20:05:20 ity of [facility] 2021-03-13 Emergency [facility] [id number] Univers 12:48:28 ity of [facility] 2021-03-13 Emergency [facility] [id number] Univers 02:43:51 ity of [facility] 2021-03-13 Emergency [facility] [id number] Univers 00:27:09 ity of [facility] 2021-03-12 Emergency [facility] [id number] Univers 22:10:36 ity of [facility] 2021-03-12 Emergency [facility] [id number] Univers 20:04:05 ity of [facility] 2021-03-12 Emergency [facility] [id number] Univers 15:25:05 ity of [facility] 2021-03-12 Emergency [facility] [id number] Univers 11:43:36 ity of [facility] 2021-03-12 Emergency [facility] [id number] Univers 07:41:37 ity of [facility] 2021-03-12 Emergency [facility] [id number] Univers 05:43:47 ity of [facility] 2021-03-12 Emergency [facility] [id number] Univers 03:43:41 ity of [facility] 2021-03-12 Emergency [facility] [id number] Univers 01:31:27 ity of [facility] 2021-03-12 Emergency X [facility] ERT [id number] Univers 00:56:44 ity of [facility] 2021-03-12 Emergency [facility] [id number] Univers 00:56:31 ity of [facility] 2021-03-11 Emergency [facility] [id number] Univers 17:47:02 ity of [facility] 2021-03-11 Emergency [facility] [id number] Univers 16:27:15 ity of [facility] 2021-03-11 Emergency [facility] [id number] Univers 12:00:58 ity of [facility] 2021-03-11 Emergency [facility] [id number] Univers 10:33:59 ity of [facility] 2021-03-11 Emergency [facility] [id number] Univers 01:36:52 ity of [facility] 2021-03-10 Emergency [facility] [id number] Univers 23:35:34 ity of [facility] 2021-03-10 Emergency [facility] [id number] Univers 19:06:16 ity of [facility] 2021-03-10 Emergency [facility] [id number] Univers 12:39:47 ity of [facility] 2021-03-10 Emergency [facility] [id number] Univers 06:54:04 ity of [facility] 2021-03-09 Outpatient P [facility] CHRIS [id number] Univers 13:25:44 ity of [facility] 2021-03-09 Outpatient P [facility] [id number] Univers 13:08:01 ity of [facility] 2021-03-09 Outpatient P [facility] [id number] Univers 12:37:25 ity of [facility] 2021-03-09 Outpatient P [facility] [id number] Univers 11:51:20 ity of [facility] 2023-02-14 2023-02-14 Outpatient SFA SFA [id number] Willis 12:59:23 12:59:23 Abdullahi5 Jeffery 2023-02-06 2023-02-06 Outpatient SFA [id number] [id number] Willis 18:19:02 18:19:02 0927 F Jeffery 2023-01-30 2023-01-30 Outpatient ERICKSON_R [facility] [id number] [place] 00:00:00 00:00:00 920 [facility] i ty [facility] 2023-01-16 2023-01-16 Transition HILARIO Odell 1.2.840.114 [id number] Univers 00:00:00 00:00:00 of Care Marlys DIMASY 350.1.13.10 [place] [id number] [facility] 403 Branch 2023-01-11 2023-01-15 Inpatient X PERSON, [facility] [id number] Univers 21:06:00 16:00:00 [facility] 2023-01-11 2023-01-15 Hospital Aroldo Siddiqui 1.2.840.11 [id number] Univers 21:06:00 16:00:00 Encounter Mirella Vergara 350.1.13.10 [facility] [facility] [facility] 4.2.7.2.686 [place] [id number] [facility] 091 Branch 2023-01-12 2023-01-12 Travel 1.2.840.1 1.2.776.654 [id number] Univers 00:00:00 00:00:00 91098.1.1 350.1.13.10 ity of 3.104.2.7 [place].698 [place] .3.790583 084.8 Medica l .8 Branch 2023-01-11 2023-01-11 Travel 1.2.840.1 1.2.692.149 [id number] Univers 00:00:00 00:00:00 57006.1.1 350.1.13.10 ity of 3.104.2.[place].698 [place] .3.014551 084.8 Medica l .8 Branch 2022-12-28 2022-12-28 Outpatient ERICKSON_R [facility] [id number] [place] 00:00:00 00:00:00 818 Commun i ty Hospita l [facility] 2022-12-14 2022-12-14 Outpatient [facility] [id number] Willis 18:37:13 18:37:13 0804 F Jeffery 2022-12-13 2022-12-13 Outpatient ERICKSON_R [facility] [id number] [place] 00:00:00 00:00:00 803 Commun i ty Hospita l [facility] 2022-12-12 2022-12-12 Outpatient R PRASANNA VARGAS [facility] [id number] Univers 09:30:00 09:30:00 ity [facility] 2022-11-21 2022-11-21 Emergency X OSIRIS [facility] [[email or web address] ERT [id number] Univers 13:08:00 16:45:00 MANJU it y [facility] 2022-11-21 2022-11-21 Emergency Zion Bridges 1.2.840.5 [id number] Univers 13:08:00 16:45:00 Manju Newell 90287.1.1 ity of 3.104.2.7 [place] .3.777595 Medica l .[place] 2022-11-21 2022-11-21 Travel 1.2.840.1 1.2.499.272 [id number] Univers 00:00:00 00:00:00 92090.1.1 350.1.13.10 ity of 3.104.2.7 [place].3.698 [place] .3.489699 084.8 Medica l .8 [place] 2022-11-18 2022-11-18 Outpatient [facility] [id number] Willis 10:08:00 10:08:00 0709 F Jeffery 2022-11-15 2022-11-15 Outpatient R LIAN GREENE [facility] [id number] Univers 09:40:00 09:40:00 LIAN GREENE chino [facility] 2022-11-15 2022-11-15 Orders Niru, 1.2.840.6 [id number] Univers 00:00:00 00:00:00 Only Palak 09613.1.1 ity of 3.104.2.7 [place] .3.470405 Medica l .8 [place] 2022-11-09 2022-11-09 Outpatient SFA [id number] [place] 15:26:18 15:26:18 0630 F Jeffery 2022-11-06 2022-11-06 Outpatient R JUAN [facility] [id number] Univers 13:00:00 13:00:00 VIJAY ity of [facility] 2022-10-29 2022-10-29 Patient Jc, 1.2.840.6 [id number] Univers 00:00:00 00:00:00 Secure Msg Lian 44878.1.1 ity of 3.104.2.7 [place] .3.998685 Medica l .8 [place] 2022-10-29 2022-10-29 Patient Prasanna Vargas 1.2.840.2 [id number] Univers 00:00:00 00:00:00 Secure Msg Cam 88748.1.1 i ty of 3.104.2.7 [place] .3.462245 Medica l .8 [place] 2022-10-03 2022-10-03 Letter Gurjit Lim [facility] [[email or web address]] 1.2.840.114 [id number] Univers 00:00:00 00:00:00 (Out) [facility] 350.1.13.10 it y of [place] 4.2.7.2.686 [place] as TOOÑ?BLEA [id number] Nj whit [facility] [address] [place] MEDICAL OFFICE [facility] 2022-10-02 2022-10-02 Outpatient R SHARMIN [facility] [id number] Univers 10:00:00 10:00:00 , CELINA it y of [facility] 2022-10-01 2022-10-01 Outpatient R ARJUN [facility] [id number] Univers 09:40:00 09:40:00 REJI lechuga o f [facility] 2022-09-25 2022-09-25 [facility]phone [facility] 1..[id number] [id number] Univers 00:00:00 00:00:00 Sendia [facility] [place] 350.1.13.10 ity of [place] PROFESS[place] [id number] Nj dicaliyah TORRES 059 [facility] 2022-09-21 2022-09-21 Outpatient R LEXY [facility] [id number] Univers 09:30:00 09:30:00 [facility] 2022-09-21 2022-09-21 Letter [facility] 1.2.840.114 [id number] Univers 00:00:00 00:00:00 (Out) Asker 350.1.13.10 it y of [place] 4.2.7.2.686 [place] as TOÑO?BLEA [id number] Nj dicaliyah [place] [address] [place] [address] 2022-09-21 2022-09-21 Telephone [facility] 1.2.680.843 [id number] Univers 00:00:00 00:00:00 Asker 350.1.13.10 it y of [place] 4.2.7.2.686 [place] as TOÑO?BLEA [id number] Nj dicaliyah [place] [address] [place] [address] 2022-09-21 2022-09-21 Telephone [facility] 1.2.165.163 [id number] Univers 00:00:00 00:00:00 Asker 350.1.13.10 it y of [place] 4.2.7.2.686 [place] TOÑO?BLEA [id number] Nj dicaliyah [facility] [address] [place] [address] 2022-09-14 2022-09-14 Outpatient R LEXY [facility] [id number] Univers 09:30:00 09:30:00 [facility] 2022-09-12 2022-09-12 Telephone [facility] 1.2.552.881 [id number] Univers 00:00:00 00:00:00 Asker 350.1.13.10 it y of [place] 4.2.7.2.686 [place] TOÑO?BLEA [id number] Nj dical MIKI [address] [place] [address] 2022-09-07 2022-09-07 Outpatient R LEXY [facility] [id number] Univers 11:30:00 11:30:00 KASSANDRA ity [facility] 2022-09-05 2022-09-05 Emergency X GUTIERREZ [facility] [[email or web address]] ERT [id number] Univers 08:44:00 13:15:00 CYNISE itchino [facility] 2022-09-05 2022-09-05 Emergency [facility] 1.2.953.101 [id number] Univers 08:44:00 13:15:00 Cynise LULU 350.1.13.10 i ty [facility] [place].2.[place] [id number] [address] 2022-09-04 2022-09-04 Telephone [facility] 1.2.428.873 [id number] Univers 00:00:00 00:00:00 Kassandra HEALTH 350.1.13.10 it y of [place] 4.2.7.2.686 [place] TOÑO?BLEA [id number] [address] MEDICAL OFFICE [facility] 2022-09-04 2022-09-04 Patient Serra, [facility] [[email or web address]] 1.2.840.114 [id number] Univers 00:00:00 00:00:00 Secure Msg Rad LAWSON 350.1.13.10 ity of [place].2.686 [place] [facility] [id number] Nj dical NAL 059 [facility] 2022-08-29 2022-08-29 Outpatient R SHARMIN [facility] [id number] Univers 09:00:00 09:00:00 , CELINA it y of [facility] 2022-08-14 2022-08-14 Patient Doctor [facility] [[email or web address]] 1.2.840.114 [id number] Univers 00:00:00 00:00:00 Secure Msg Unassigned, HEALTH 350.1.13.10 ity of [place] 4.2.7.2.686 [place] as TOÑO?BLEA [id number] Nj dic[address] MEDICAL OFFICE [facility] 2022-07-31 2022-07-31 Emergency X RIDRAFA, [facility] [[email or web address]] ERT [id number] Univers 17:56:00 20:30:00 CHRISTOPHER it y of [facility] 2022-07-31 2022-07-31 [facility] [id number] Univers 17:56:00 20:30:00 Christadrianaer LULU [id number] [facility] [id number] [phone] [facility] [address] 2022-07-15 2022-07-15 Outpatient R [facility] [id number] Univers 09:46:45 23:59:00 CARI ity o f [facility] 2022-07-15 2022-07-15 [facility] 1.2.840.114 [id number] Univers 09:46:45 23:59:00 Encounter Cari Farmer [facility] 350.1.13.10 ity [facility] 4.2.7.2.686 Martin as TOÑO?BLEA [id number] [facility] [address] MEDICAL OFFICE [facility] 2022-07-15 2022-07-15 [facility] 1.2.840.114 [id number] Univers 09:46:45 23:59:00 Encounter C[address] [facility] 350.1.13.10 ity of [place] 4.2.7.2.686 Martin as TOÑO?BLEA [id number] [facility] [address] [facility] OFFICE [facility] 2022-07-15 2022-07-15 Urgent NatashaCari draper [facility] 1.2.840 .114 [id number] Univers 09:20:00 10:29:17 Care Unknown, Attending HEALTH 350.1.13.10 ity of [place] 4.2.7.2.686 Martin as TOÑO?BLEA [id number] [facility] [address] MEDICAL OFFICE BUILDING 2022-07-15 2022-07-15 Orders Doctor JORDAN 1.2.840.114 [id number] Univers 00:00:00 00:00:00 Only Unassigned, YAZMIN 350.1.13.10 ity of [place] [facility] 4.2.7.2.686 Martin as [id number] [address] 2022-06-23 2022-06-23 Outpatient R DANITA [facility] [id number] Univers 09:20:00 10:27:39 PAUL chino [facility] 2022-06-23 2022-06-23 Urgent Paul Samayoa [email or web address]] 1.2.840. 114 [id number] Univers 09:20:00 10:27:39 Care Unknown, Attending HEALTH 350.1.13.10 ity of [place] 4.2.7.2.686 Martin as TOÑO?BLEA [id number] [facility] [address] MEDICAL OFFICE BUILDING 2022-06-23 2022-06-23 Orders Doctor JORDAN 1.2.840.114 [id number] Univers 00:00:00 00:00:00 Only Unassigned, YAZMIN 350.1.13.10 ity of [place] [facility] 4.2.7.2.686 Martin as [id number] [address] 2022-06-15 2022-06-15 [facility] [id number] Univers 09:40:00 09:40:00 LIAN [facility] 2022-05-29 2022-05-29 Out[facility] [id number] Univers 08:00:00 08:00:00 KASSANDRA [facility] 2022-05-15 2022-05-15 Outpatient [facility] [id number] Univers 09:20:00 09:20:00 BENNETT [facility] 2022-05-11 2022-05-11 Out[facility] [id number] Univers 09:30:00 09:30:00 KASSANDRA [facility] 2022-05-05 2022-05-05 Emergency X ERROL, [email or web address] ERT [id number] Univers 12:26:00 16:11:00 KARON [facility] 2022-05-05 2022-05-05 [facility] 1.2.840.114 [id number] Univers 12:26:00 16:11:00 Karon LAWSON 350.1.13.10 i ty of [place] 4.2.7.2.686 [facility] [id number] [address] 2022-05-01 2022-05-01 Outpatient R PRASANNA VARGAS [facility] [id number] Univers 00:00:00 00:00:00 ankush [facility] 2022-04-26 2022-04-26 Emergency X BRIDGES [email or web address] ERT [id number] Univers 08:30:00 09:59:00 ZION lechuga [facility] 2022-04-26 2022-04-26 Emergency [facility] 1.2.827.347 [id number] Univers 08:30:00 09:59:00 Zion LAWSON 350.1.13.10 i ty [facility] 4.2.7.2.686 [facility] [id number] [address] 2022-04-25 2022-04-25 Emergency X GUTIERREZ, [email or web address]] ERT [id number] Univers 18:23:00 21:55:00 CYNISE chino [facility] 2022-04-25 2022-04-25 Emergency [facility] 1.2.856.816 [id number] Univers 18:23:00 21:55:00 Kennedy LAWSON 350.1.13.10 i ty of [facility] 4.2.7.2.686 [facility] [id number] [address] 2022-04-19 2022-04-19 Outpatient Farzana GREENE [facility] [id number] Univers 10:00:00 10:00:00 LIAN ankush [facility] 2022-04-12 2022-04-12 Telephone [facility] 1.2.625.428 [id number] Univers 00:00:00 00:00:00 Asker 350.1.13.10 it y of [place] 4.2.7.2.686 Martin as TOÑO?BLEA [id number] Nj alessandra[address] MEDICAL OFFICE BUILDING 2022-04-11 2022-04-11 Telephone Patti [facility] [[email or web address]] 1.2.840.114 [id number] Univers 00:00:00 00:00:00 [facility] 350.1.13.10 ity of [place] 4.2.7.2.686 Martin as OTÑO?BLEA [id number] Nj whit [address] MEDICAL OFFICE [facility] 2022-04-10 2022-04-10 Telephone [facility] 1.2.400.284 [id number] Univers 00:00:00 00:00:00 [facility] 350.1.13.10 it y of [place] 4.2.7.2.686 Martin as TOÑO?BLEA [id number] Nj whit [address] OFFICE [facility] 2022-04-09 2022-04-09 Office [facility] 1.2.840.114 [id number] Univers 09:30:00 09:30:00 Visit [facility] 350.1.13.10 it y of [facility] 4.2.7.2.686 Martin as TOÑO?BLEA [id number] [address] OFFICE [facility] 2022-04-09 2022-04-09 Outpatient [facility] [id number] Univers 09:30:00 09:21:44 KASSANDRA ity [facility] 2022-04-07 2022-04-07 Emergency X [facility] ERT [id number] Univers 13:41:00 17:49:00 OLAMIDE lechuga [facility] 2022-04-07 2022-04-07 Emergency [facility] 1.2.015.038 [id number] Univers 13:41:00 17:49:00 Olamide LAWSON 350.1.13.10 ity of [place].2.7.2.686 [place] [id number] [facility] [address] 2022-04-07 2022-04-07 Patient Doctor JORDAN 1.2.840.114 [id number] Univers 00:00:00 00:00:00 Secure Msg Unassigned, YAZMIN 350.1.13.10 ity of [place] [facility] 4.2.7.2.686 Martin as [id number] [facility] [address] 2022-04-04 2022-04-04 Telephone [facility] 1.2.682.261 [id number] Univers 00:00:00 00:00:00 Kassandra HEALTH 350.1.13.10 it y of [place] 4.2.7.2.686 Martin as TOÑO?BLEA [id number] Nj whit [address] 2022-04-02 2022-04-02 Outpatient Farzana PUGH [facility] [id number] Univers 10:30:00 10:30:00 KASSANDRA itchino [facility] 2022-03-28 2022-03-28 Patient Doctor [facility] [[email or web address]] 1.2.840.114 [id number] Univers 00:00:00 00:00:00 Secure [facility] 350.1.13.10 ity of [place] 4.2.7.2.686 Martin as TOÑO?BLEA [id number] [address] 2022-03-24 2022-03-24 Emergency X PERLA, [email or web address]] ERT [id number] Univers 07:35:00 13:11:00 KELLIE lechuga [facility] 2022-03-24 2022-03-24 Emergency [facility] 1.2.677.227 [id number] Univers 07:35:00 13:11:00 Kellie LAWSON 350.1.13.10 ity of [place] 4.2.7.2.686 [place] [facility] [id number] [address] 2022-03-23 2022-03-23 Outpatient Farzana PUGH [facility] [id number] Univers 10:30:00 10:30:00 KASSANDRA lechuga [facility] 2022-03-23 2022-03-23 Telephone [facility] 1.2.840.114 [id number] Univers 00:00:00 00:00:00 [facility] 350.1.13.10 ity of [place] 4.2.7.2.686 [place] as TOÑO?BLEA [id number] [address] 2022-03-22 2022-03-22 Telephone Patti [facility] [[email or web address]] 1.2.840.114 [id number] Univers 00:00:00 00:00:00 [facility] 350.1.13.10 ity [facility] 4.2.7.2.686 Martin as TOÑO?BLEA [id number] [address] 2022-03-22 2022-03-22 Refill [facility] 1.2.840.114 [id number] Univers 00:00:00 00:00:00 [facility] 350.1.13.10 ity [facility] 4.2.7.2.686 [place] as TOÑO?BLEA [id number] [address] 2022-03-21 2022-03-21 [facility] 1.2.840.114 [id number] Univers 00:00:00 00:00:00 [facility] 350.1.13.10 ity of [place] 4.2.7.2.686 [place] as TOÑO?BLEA [id number] [address] 2022-03-15 2022-03-15 Outpatient R ARJUN [facility] [id number] Univers 14:00:00 14:36:19 [facility] o f [facility] 2022-03-15 2022-03-15 Office [facility] 1.2.840.114 [id number] Univers 14:00:00 14:36:19 Visit ArleyErlanger [facility] 350.1.13.10 ity of [place].2.7.2.686 [place] [facility] [id number] [facility] 059 [facility] 2022-03-15 2022-03-15 Emergency X ARTSSM [facility]ANDY[facility] ERT [id number] Univers 08:40:00 10:47:00 ANNA ity [facility] 2022-03-15 2022-03-[address] [facility] 1.2.840.114 [id number] Univers 08:40:00 10:47:00 Anna [place] 350.1.13.10 i ty of [facility] 4.2.7.2.686 [place] [id number] [address] 2022-03-14 2022-03-14 Outpatient R ALICIA PRASANNA [facility] [id number] Univers 10:30:00 10:30:00 ity [facility] 2022-03-11 2022-03-11 Emergency X FELICE [email or web address] ERT [id number] Univers 09:22:00 12:15:00 SHINTA ity [facility] 2022-03-11 2022-03-11 Emergency [facility] 1.2.840.114 [id number] Univers 09:22:00 12:15:00 Shinta [place] 350.1.13.10 i ty of [place] 4.2.7.2.686 [place] [facility] [id number] [address] 2022-03-06 2022-03-06 Outpatient Farzana LEXY [facility] [id number] Univers 08:30:00 08:30:00 KASSANDRA [facility] 2022-03-02 2022-03-02 Telephone Patti [facility] [[email or web address] 1..840.114 [id number] Univers 00:00:00 00:00:00 Gamador 350.1.13.10 ity of [place] 4.2.7.2.686 [place] TOÑO?BLEA [id number] [address] MEDICAL OFFICE [facility] 2022-02-28 2022-02-28 Patient Doctor [facility] [[email or web address]] 1..840.114 [id number] Univers 00:00:00 00:00:00 Secure Msg Unassigned, [facility] 350.1.13.10 ity of [place] 4.2.7.2.686 Martin as TOÑO?BLEA [id number] [address] MEDICAL OFFICE [facility] 2022-02-27 2022-02-27 Outpatient R LEXY [facility] [id number] Univers 09:30:00 09:49:42 KASSANDRA chino [facility] 2022-02-27 2022-02-27 Office [facility] 1..840.114 [id number] Univers 09:30:00 09:49:42 Visit Asker 350.1.13.10 it y of [place] 4.2.7.2.686 Martin as TOÑO?BLEA [id number] Nj whit [place] [address] MEDICAL OFFICE [facility] 2022-02-27 2022-02-27 Office Juan [email or web address]] 1.2.840.114 [id number] Univers 08:00:00 09:12:17 Visit Vijay PETTY 350.1.13.10 it y of [place] 4.2.7.2.686 Martin as TOÑO?BLEA [id number] [facility] 044 [facility] OFFICE [facility] 2022-02-26 2022-02-26 Outpatient R LEXY [facility] [id number] Univers 11:30:00 11:30:00 KASSANDRA ankush [facility] 2022-02-21 2022-02-21 Emergency [facility] ERT [id number] Univers 01:20:00 03:44:00 MAGGIE lechuga [facility] 2022-02-21 2022-02-21 Emergency [facility] 1.2.840.114 [id number] Univers 01:20:00 03:44:00 Maggie [facility] 350.1.13.10 ity of [place].2.7.2.686 [place] [id number] [address] 2022-02-19 2022-02-19 Patient [facility] 1.2.840.114 [id number] Univers 00:00:00 00:00:00 Secure Msg Kendal Amaral [facility] 350.1.13.10 ity of [place] 4.2.7.2.686 [place] as TOÑO?BLEA [id number] Nj whit [place] [address] [place] [address] MEDICAL OFFICE [facility] 2022-02-19 2022-02-19 Patient [facility] 1.2.840.114 [id number] Univers 00:00:00 00:00:00 Secure Msg Kendal Amaral HEALTH 350.1.13.10 ity of [place] 4.2.7.2.686 Martin as TOÑO?BLEA [id number] Nj whit [place] [address] [place] [address] MEDICAL OFFICE [facility] 2022-02-19 2022-02-19 Patient Suzette [facility] [[email or web address]] 1.2.275.768 [id number] Univers 00:00:00 00:00:00 Secure Msg Ade WATERSY 350.1.13.10 ity of [facility] 4.[place].7.2.[place] [id number] [facility] [address] 2022-02-19 2022-02-19 Patient Martin [facility] [[email or web address]] 1.2.840.114 [id number] Univers 00:00:00 00:00:00 Secure Msg 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 350.1.13.10 ity of [facility] 4.2.7.2.686 Martin as MATERNAL [id number] Med ical & CHILD [address] [place] [address] 2022 2022 Emergency X [facility] ERT [id number] Univers 11:58:00 15:13:00 MAGGIE lechuga [facility] 2022 2022 Emergency [facility] 1.2.840.114 [id number] Univers 11:58:00 15:13:00 Maggie LAW[place] 350.1.13.10 ity [facility] 4.2.7.2.686 [place] [facility] [id number] [facility] [address] 2022-02-09 2022-02-09 Outpatient R BRANDON, [facility] [id number] Univers 09:00:00 09:00:00 CRICKET davis [facility] 2022-02-06 2022-02-06 Outpatient R JUAN [facility] [id number] Univers 10:00:00 10:00:00 VIJAY lechuga [facility] 2022-02-05 2022-02-05 Nurse Nurse, [facility] [[email or web address]] 1.2.840.114 [id number] Univers 09:45:00 10:05:00 Visit [facility] 350.1.13.10 ity [facility] 4.2.7.2.686 Martin as TOÑO?BLEA [id number] Nj wiht [address] MEDICAL OFFICE BUILDING 2022-02-05 2022-02-05 Outpatient R OLIVER [facility] [id number] Univers 09:20:00 09:20:00 FLACO davis [facility] 2022-01-26 2022-01-26 Prasanna Gimenez [facility] [[email or web address]] 1.2.767.241 [id number] Univers 00:00:00 00:00:00 Management Jm LAW[place] 350.1.13.10 ity [facility] 4.2.7.2.686 [place] [facility] [id number] Nj dical [address] 2022-01-22 2022-01-22 Outpatient R JUAN [facility] [id number] Univers 11:00:00 11:00:00 VIJAY ity of [facility] 2022-01-19 2022-01-19 Patient Doctor JORDAN 1.2.840.114 [id number] Univers 00:00:00 00:00:00 Secure Msg Unassigned, YAZMIN 350.1.13.10 ity [facility] 4.2.7.2.686 [facility] [id number] [facility] [address] 2022-01-18 2022-01-18 Emergency X GARDENIA [email or web address] ERT [id number] Univers 05:17:00 10:25:00 [facility] 2022-[facility]-18 2022-01-18 Emergency Jayy Kennedy W TRAUMA 1.2.840.11 4 [id number] Univers 05:17:00 10:25:00 Bernardo Levy [facility] 350.1.13.10 ity [place] north.2.7.2.686 [facility] [id number] [facility] [address] 2022-01-15 2022-01-15 Emergency X DANITA [email or web address] ERT [id number] Univers 08:34:00 10:49:00 MAURA lechuga [facility] 2022-01-15 2022-01-15 Emergency Ana Richelleayanna R [facility] [[email or web address]] 1.2.840.1 14 [id number] Univers 08:34:00 10:49:00 Maura [place] 350.1.13.10 ity [facility] 4.2.7.2.[address] [facility] [id number] [facility] [address] 2022-01-08 2022-01-08 Emergency X GABRIELA [facility] [[email or web address] ERT [id number] Univers 18:04:00 20:09:00 [facility] 2022-01-08 2022-01-08 Emergency Gabriela, [email or web address]] 1.2.840.114 [id number] Univers 18:04:00 20:09:00 Humberto [place] 350.1.13.10 i ty of [facility] 4.2.7.2.686 [facility] [id number] [address] 2021-12-12 2021-12-12 Outpatient R DEYVI [facility] [id number] Univers 13:30:00 13:40:21 [facility] 2021-12-12 2021-12-12 Office VargasPrasanna Jm [email or web address] 1..840.114 [id number] Univers 13:30:00 13:40:21 Visit Teto Carnes 350.1.13.10 ity [facility] 4.2.7.2.686 [facility] [id number] Nj dical [address] 2021-12-12 2021-12-12 Outpatient Farzana CARNES [facility] [id number] Univers 13:30:00 13:40:21 [facility] 2021-12-12 2021-12-12 Outpatient R DEYVI [facility] [id number] Univers 13:30:00 13:40:21 [facility] 2021-12-11 2021-12-11 Outpatient R SUZETTE, [facility] [id number] Univers 16:15:00 16:15:00 ADE [facility] 2021-12-05 2021-12-05 Outpatient R LYSSA, [facility] [id number] Univers 14:15:00 14:15:00 ROMULO [facility] 2021-11-28 2021-11-28 Emergency X ERROL, [email or web address] ERT [id number] Univers 08:49:00 11:02:00 KARON [facility] 2021-11-28 2021-11-28 Emergency [facility] 1..840.114 [id number] Univers 08:49:00 11:02:00 Karon [place] 350.1.13.10 i ty of [place] 4.2.7.2.686 [facility] [id number] [address] 2021-11-28 2021-11-28 Patient Sushmagracie [email or web address]] 1.2.999.513 [id number] Univers 00:00:00 00:00:00 Secure Msg Cricket Lopez [employer] 350.1.13.10 ity of [facility] 4.2.7.2.686 Martin as MATERNAL [id number] [facility] & [address] 2021-11-24 2021-11-24 Emergency X DEV, K [email or web address] ERT [id number] Univers 18:14:00 21:04:00 ity of [facility] 2021-11-24 2021-11-24 Emergency Dev, [facility] 1.2.840.114 [id number] Univers 18:14:00 21:04:00 Sharlene [place] 350.1.13.10 i ty of [place] 4.2.7.2.686 [facility] [id number] [address] 2021-11-24 2021-11-24 Telephone Addisongracie [facility] [[email or web address]] 1.2.840.114 [id number] Univers 00:00:00 00:00:00 Cricket Lopez [employer] 350.1.13.10 ity of [facility] 4.2.7.2.686 Martin as MATERNAL [id number] [address] 2021-11-20 2021-11-20 Patient Robb [facility] [[email or web address]] 1.2.840.114 [id number] Univers 00:00:00 00:00:00 Secure Msg Kendal [facility] 350.1.13.10 ity [facility] 4.2.7.2.686 Martin as TOÑO?BLEA [id number] Nj alessandra[address] MEDICAL OFFICE BUILDING 2021-11-19 2021-11-19 Letter JORDAN Santacruz 1.2.840.114 [id number] Univers 00:00:00 00:00:00 (Out) Leslie ARCE 350.1.13.10 it y of [facility] 4.2.7.2.686 Martin as [id number] [address] 2021-11-18 2021-11-18 Out[facility] [id number] Univers 10:41:40 23:59:00 FLACO lechuga o f [facility] 2021-11-18 2021-11-18 Hospital [facility] 1.2.042.511 [id number] Univers 10:41:40 23:59:00 Encounter [facility] 350.1.13.10 ity of [place] 4.2.7.2.686 Martin as TOÑO?BLEA [id number] Me dical MIKI [address] MEDICAL OFFICE [facility] 2021-11-18 2021-11-18 Urgent [facility] 1.2.840.114 [id number] Univers 10:20:00 10:53:20 Care [facility] 350.1.13.10 i ty of [place] 4.2.7.2.686 Martin as TOÑO?BLEA [id number] Me whit [place] [address] [facility] OFFICE [facility] 2021-11-09 2021-11-09 Outpatient [facility] [id number] Univers 10:30:00 10:30:00 CELINA lechuga [facility] 2021-10-25 2021-10-25 Urgent Ileana Medrano [facility] [[email or web address]] ..840.114 9 [id number] Univers 13:20:00 13:20:00 Care [facility] 350.1.13.10 ity [facility] 4.2.7.2.686 Martin as TOÑO?BLEA [id number] Nj dicaliyah [place] [address] [facility] OFFICE [facility] 2021-10-25 2021-10-25 Outpatient [facility] [id number] Univers 13:20:00 12:47:59 ILEANA lechuga [facility] 2021-10-25 2021-10-25 Patient Ví[facility]orkathyG[facility]UP [facility] 1.2.840.114 [id number] Univers 00:00:00 00:00:00 Secure [facility] 350.1.13.10 ity of [place] 4.2.7.2.686 [place] as TOÑO?BLEA [phone] Me dical IVÁNEY [address] MEDICAL OFFICE [facility] 2021-10-25 2021-10-25 Telephone Cotta, [email or web address]] 1.2.830.445 [id number] Univers 00:00:00 00:00:00 Vijay HEALTH 350.1.13.10 it y of [place] 4.2.7.2.686 Martin as TOÑO?BLEA [id number] [facility] 044 [facility] OFFICE [facility] 2021-10-25 2021-10-25 Telephone Provider, [email or web address]] 1.2.840.114 [id number] Univers 00:00:00 00:00:00 Ang Db HEALTH 350.1.13.10 it y of Urgent Care [place] 4.2.7.2.686 [place] TOÑO?BLEA [id number] [facility] [address] MEDICAL OFFICE [facility] 2021-10-25 2021-10-25 Telephone Nurse, Filippo [facility] [[email or web address]] [id number] Univers 00:00:00 00:00:00 Db Urgent HEALTH [id number] ity of Care [place] [id number] [place] as TOÑO?BLEA [phone] [facility] [address] [facility] OFFICE [facility] 2021-10-24 2021-10-24 Outpatient Farzana OMALLEY [facility] [id number] Univers 10:15:00 10:15:00 ROMULO [facility] 2021-10-24 2021-10-24 Outpatient Farzana OMALLEY [facility] [id number] Univers 10:15:00 10:15:00 ROMULO [facility] 2021-10-11 2021-10-11 Outpatient Farzana OMALLEY [facility] [id number] Univers 09:30:00 09:30:00 ROMULO [facility] 2021-10-10 2021-10-10 Outpatient PRASANNA LOOMIS [facility] [id number] Univers 13:30:00 13:30:00 ity [facility] 2021-10-10 2021-10-10 Outpatient PRASANNA LOOMIS [facility] [id number] Univers 13:30:00 13:30:00 ity [facility] 2021-10-10 2021-10-10 Outpatient R PRASANNA VARGAS [facility] [id number] Univers 13:30:00 13:30:00 ity of [facility] 2021-10-10 2021-10-10 [facility] [id number] Univers 13:30:00 13:30:00 ity of [facility] 2021-10-10 2021-10-10 Outpatient R PRASANNA VARGAS [facility] [id number] Univers 13:30:00 13:30:00 ity of [facility] 2021-10-10 2021-10-10 Outpatient R ALICIA [facility] [id number] Univers 13:30:00 13:30:00 ity of [facility] 2021-10-10 2021-10-10 [facility] [id number] Univers 13:30:00 13:30:00 ity of [facility] 2021-10-05 2021-10-05 Patient Robb [facility] [[email or web address]] [id number] Univers 00:00:00 00:00:00 Secure Msg Kendal Amaral HEALTH [id number] ity of [place] [id number] [place] TOÑO?BLEA [phone] [address] OFFICE [facility] 2021-10-05 2021-10-05 Patient Robb [facility] [[email or web address]] [id number] Univers 00:00:00 00:00:00 Secure g Kendal Amaral HEALTH [id number] ity of [place] [id number] [place] TOÑO?BLEA [id number] [address] MEDICAL OFFICE [facility] 2021-10-04 2021-10-04 Pre Visit HILARIO Rodriguez 1.2.154.242 [id number] Univers 00:00:00 00:00:00 Outreach Melia TELLO 350.1.13.10 it[place] of [place] [phone] [address] 2021-09-28 2021-09-28 Office Apurva [facility] [[email or web address]] 1.2.840.114 [id number] Univers 13:30:00 13:45:00 Visit Celina Cannon [place] [facility].13.10 [facility] [place] [phone] [address] 2021-09-28 2021-09-28 [facility] [id number] Univers 13:30:00 13:30:00 CELINA [facility] 2021-09-28 2021-09-28 Outpatient [facility] [id number] Univers 13:30:00 13:30:00 [facility] 2021-09-28 2021-09-28 [facility] 1.2.840.114 [id number] Univers 00:00:00 00:00:00 Secure Msg Celina Cannon [place] 350.1.13.10 [facility] [place].2.[place] [id number] [address] 2021-09-27 2021-09-27 Outpatient R DEYVI [facility] [id number] Univers 14:00:00 14:00:00 TETO [facility] 2021-09-27 2021-09-27 [facility] [id number] Univers 09:30:00 09:30:00 [facility] 2021-09-27 2021-09-27 Outpatient R ADITI [facility] [id number] Univers 09:30:00 09:30:00 [facility] 2021-09-27 2021-09-27 [facility] [id number] Univers 09:30:00 09:30:00 [facility] 2021-09-26 2021-09-26 Outpatient R AKINLYNSEY, [facility] [id number] Univers 10:45:00 10:45:00 CRICKET ity o f [facility] 2021-09-26 2021-09-26 Outpatient R AKINSIGRACIE [facility] [id number] Univers 10:45:00 10:45:00 CRICKET ity o f [facility] 2021-09-26 2021-09-26 Patient Juan [facility] [[email or web address]] 1.2.840.114 [id number] Univers 00:00:00 00:00:00 Secure [facility] 350.1.13.10 ity of [place] 4.2.7.2.686 Martin as TOÑO?BLEA [phone] Me dicaliyah [facility] [address] MEDICAL OFFICE [facility] 2021-09-26 2021-09-26 Patient Juan [facility] [[email or web address]] 1.2.840.114 [id number] Univers 00:00:00 00:00:00 Secure [facility] Vijay HEALTH 350.1.13.10 ity of [place] 4.2.7.2.686 [place] as TOÑO?BLEA [phone] [facility] 044 [facility] OFFICE [facility] 2021-09-25 2021-09-25 Urgent Flaco Boyd [facility] [[email or web address]] 1.2.840. 114 [id number] Univers 10:20:00 11:10:42 [facility] 350.1.13.10 it[facility] 4.2.7.2.686 [place] as TOÑO?BLEA [phone] [facility] 370 [facility] OFFICE [facility] 2021-09-25 2021-09-25 Outpatient R OLIVER [facility] [id number] Univers 10:20:00 11:10:42 FLACO fitzpatrick [facility] 2021-09-25 2021-09-25 Outpatient R OLIVER [facility] [id number] Univers 10:20:00 10:20:00 FLACO lechuga o [facility] 2021-09-25 2021-09-25 Outpatient R PRASANNA VARGAS [facility] [id number] Univers 10:00:00 10:00:00 ity [facility] 2021-09-25 2021-09-25 Telephone [facility] 1.2.840.114 [id number] Univers 00:00:00 00:00:00 [facility] 350.1.13.10 i ty of [place] 4.2.7.2.686 [place] as TOÑO?BLEA [phone] Me dical KNEY [address] MEDICAL OFFICE [facility] 2021-09-25 2021-09-25 Patient Prasanna Vargas [facility] [[email or web address]] 1.2.254.893 [id number] Univers 00:00:00 00:00:00 Secure Msg Cam [place] 350.1.13.10 ity of [place].2.[place] [phone] Nj dical NAL 134 [facility] 2021-09-25 2021-09-25 Telephone Brandon [facility] [[email or web address]] 1.2.840.114 [id number] Univers 00:00:00 00:00:00 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 350.1.13.10 ity of [facility] 4.2.7.2.686 [place] as MATERNAL [phone] Med ical & CHILD 107 [facility] 2021-09-25 2021-09-25 Telephone Apurva [facility] [[email or web address]] 1.2.099.925 [id number] Univers 00:00:00 00:00:00 Celina SAM 350.1.13.10 ity of [facility] 4.2.7.2.686 [place] [phone] [address] 2021-09-15 2021-09-15 Patient Robb [facility] [[email or web address]] 1.2.840.114 [id number] Univers 00:00:00 00:00:00 Secure Msg Kendal Munir HEALTH 350.1.13.10 ity of [place] 4.2.7.2.686 [place] TOÑO?BLEA [phone] Nj dicaliyah [place] [address] MEDICAL OFFICE [facility] 2021-09-15 2021-09-15 Patient Robb [facility] [[email or web address]] 1.2.840.114 [id number] Univers 00:00:00 00:00:00 Secure Msg Kendal M HEALTH 350.1.13.10 ity of [place] 4.2.7.2.686 [place] TOÑO?BLEA [id number] Nj dicaliyah [place] 044 [facility] OFFICE [facility] 2021-09-15 2021-09-15 Patient Robb [facility] [[email or web address]] 1.2.840.114 [id number] Univers 00:00:00 00:00:00 Secure Msg Kendal M HEALTH 350.1.13.10 [facility] 4.2.7.2.686 [place] as TOÑO?BLEA [phone] [address] MEDICAL OFFICE [facility] 2021-09-14 2021-09-14 Patient Juan [facility] [[email or web address]] 1.2.840.114 [id number] Univers 00:00:00 00:00:00 Secure Msg Vijay HEALTH 350.1.13.10 [facility] 4.2.7.2.686 [place] TOÑO?BLEA [phone] [address] OFFICE [facility] 2021-09-14 2021-09-14 Patient Doctor [facility] [[email or web address]] 1.2.840.114 [id number] Univers 00:00:00 00:00:00 Secure Msg Unassigned, HEALTH 350.1.13.10 ity of [place] 4.2.7.2.686 [place] as TOÑO?BLEA [phone] [address] OFFICE [facility] 2021-09-12 2021-09-12 Outpatient Farzana MIXON [facility] [id number] Univers 10:30:00 10:30:00 CELINA lechuga [facility] 2021-09-12 2021-09-12 Outpatient Farzana MIXON [facility] [id number] Univers 10:30:00 10:30:00 CELINA lechuga [facility] 2021-09-12 2021-09-12 Patient Meet [facility] [[email or web address]] 1.2.840.114 [id number] Univers 00:00:00 00:00:00 Secure Msg Daniel CRAIG 350.1.13.10 ity of [place] [id number] [facility] AND HELIX [address] [facility] 2021-09-12 2021-09-12 Orders Doctor JORDAN 1.2.840.114 [id number] Univers 00:00:00 00:00:00 Only Unassigned, YAZMIN 350.1.13.10 ity of [place] [facility] 4.2.7.2.686 [place] as [phone] [facility] [address] 2021-09-12 2021-09-12 Patient Juan [facility] [[email or web address]] 1.2.840.114 [id number] Univers 00:00:00 00:00:00 Secure Msg Vijay HEALTH 350.1.13.10 ity of [place] 4.2.7.2.686 [place] as TOÑO?BLEA [id number] [address] MEDICAL OFFICE BUILDING 2021-09-05 2021-09-05 Patient Juan [facility] [[email or web address]] 1.2.840.114 [id number] Univers 00:00:00 00:00:00 Secure Msg Vijay HEALTH 350.1.13.10 ity of [place] 4.2.7.2.686 [place] as TOÑO?BLEA [phone] [address] MEDICAL OFFICE BUILDING 2021-09-05 2021-09-05 Patient Doctor JORDAN 1.2.840.114 [id number] Univers 00:00:00 00:00:00 Secure Msg Unassigned, YAZMIN 350.1.13.10 ity of [place] [facility] 4.2.7.2.686 [place] as [phone] [address] 2021-09-05 2021-09-05 Patient Doctor JORDAN 1.2.840.114 [id number] Univers 00:00:00 00:00:00 Secure Msg Unassigned, YAZMIN 350.1.13.10 ity of [place] [facility] 4.2.7.2.686 [place] as [id number] [address] 2021-09-04 2021-09-04 Patient Juan [facility] [[email or web address]] 1.2.840.114 [id number] Univers 00:00:00 00:00:00 Secure Msg Vijay HEALTH 350.1.13.10 ity of [place] 4.2.7.2.686 [place] as TOÑO?BLEA [phone] [address] MEDICAL OFFICE BUILDING 2021-08-28 2021-08-28 Patient Melvin [facility] [[email or web address]] 1.2.840.114 [id number] Univers 00:00:00 00:00:00 Secure Msg Shancy K MULTISPEC 350.1.13.10 ity of [place] [phone] [address] [facility] 2021-08-25 2021-08-25 Telephone Aditi [facility] [[email or web address]] 1.2.840.114 [id number] Univers 00:00:00 00:00:00 Dania L HEALTH 350.1.13.10 it y of [place] 4.2.7.2.686 [place] as TOÑO?BLEA [phone] Me whit [place] [address] MEDICAL OFFICE BUILDING 2021-08-25 2021-08-25 Patient Juan [facility] [[email or web address]] 1.2.840.114 [id number] Univers 00:00:00 00:00:00 Secure Msg Vijay HEALTH 350.1.13.10 ity of [place] 4.2.7.2.686 [place] as TOÑO?BLEA [phone] Nj whit [place] [address] MEDICAL OFFICE BUILDING 2021-08-24 2021-08-24 Telephone Juan [facility] [[email or web address]] 1.2.303.532 [id number] Univers 00:00:00 00:00:00 Vijay HEALTH 350.1.13.10 it y of [place] 4.2.7.2.686 [place] as TOÑO?BLEA [phone] Nj whit [place] [address] MEDICAL OFFICE BUILDING 2021-08-24 2021-08-24 Patient Juan [facility] [[email or web address]] 1.2.840.114 [id number] Univers 00:00:00 00:00:00 Secure Msg Vijay HEALTH 350.1.13.10 ity of [place] 4.2.7.2.686 [place] as TOÑO?BLEA [phone] Nj whit [place] [address] MEDICAL OFFICE BUILDING 2021-08-23 2021-08-23 Patient Juan [facility] [[email or web address]] 1.2.840.114 [id number] Univers 00:00:00 00:00:00 Secure Msg Vijay HEALTH 350.1.13.10 ity of [place] 4.2.7.2.686 [place] as TOÑO?BLEA [phone] Nj whit [place] [address] MEDICAL OFFICE BUILDING 2021-08-23 2021-08-23 Telephone Juan [facility] [[email or web address]] 1.2.910.202 [id number] Univers 00:00:00 00:00:00 Vijay HEALTH 350.1.13.10 it y of [place] 4.2.7.2.686 [place] as TOÑO?BLEA [phone] Nj dical KNEY 044 [facility] OFFICE [facility] 2021-08-22 2021-08-22 Telephone [facility] 1.2.825.561 [id number] Univers 00:00:00 00:00:00 Vijay HEALTH 350.1.13.10 it y of [place] 4.2.7.2.686 [place] as TOÑO?BLEA [phone] Nj dical KNEY 044 [facility] OFFICE [facility] 2021-08-22 2021-08-22 Patient [facility] 1.2.840.114 [id number] Univers 00:00:00 00:00:00 Secure Msg Hallie HEALTH 350.1.13.10 ity of [place] 4.2.7.2.686 [place] as TOÑO?BLEA [id number] Nj dical KNEY [address] [place] [address] 2021-08-18 2021-08-18 Telephone [facility] 1.2.917.562 [id number] Univers 00:00:00 00:00:00 Vijay HEALTH 350.1.13.10 it y of [place] 4.2.7.2.686 [place] as TOÑO?BLEA [phone] Nj dical KNEY [address] [place] [address] 2021-08-17 2021-08-17 Outpatient Farzana MIXON [facility] [id number] Univers 09:00:00 09:00:00 CELINA lechuga [facility] 2021-08-17 2021-08-17 Outpatient Farzana MIXON [facility] [id number] Univers 09:00:00 09:00:00 CELINA ity of [facility] 2021-08-17 2021-08-17 Patient Prasanna Vargas [facility] [[email or web address]] 1.2.057.715 [id number] Univers 00:00:00 00:00:00 Secure Msg Cam [place] 350.1.13.10 ity of [place] [phone] Me dical NAL 134 [facility] 2021-08-17 2021-08-17 [facility] 1.2.840.114 [id number] Univers 00:00:00 00:00:00 Secure Msg Vijay HEALTH 350.1.13.10 ity of [place] 4.2.7.2.686 [place] as TOÑO?BLEA [phone] [address] MEDICAL OFFICE [facility] 2021-08-17 2021-08-17 Patient Juan, [facility] [[email or web address]] 1.2.840.114 [id number] Univers 00:00:00 00:00:00 Secure Msg Vijay HEALTH 350.1.13.10 ity of [place] 4.2.7.2.686 [place] as TOÑO?BLEA [id number] [address] MEDICAL OFFICE [facility] 2021-08-16 2021-08-16 Patient Juan [facility] [[email or web address]] 1.2.840.114 [id number] Univers 00:00:00 00:00:00 Secure Msg Vijay HEALTH 350.1.13.10 ity of [place] 4.2.7.2.686 [place] as TOÑO?BLEA [phone] [address] MEDICAL OFFICE [facility] 2021-08-16 2021-08-16 Patient Doctor [facility] [[email or web address]] 1.2.840.114 [id number] Univers 00:00:00 00:00:00 Secure Msg Unassigned, HEALTH 350.1.13.10 ity of [place] 4.2.7.2.686 Martin as TOÑO?BLEA [id number] [address] MEDICAL OFFICE [facility] 2021-08-16 2021-08-16 Patient Juan [facility] [[email or web address]] 1.2.840.114 [id number] Univers 00:00:00 00:00:00 Secure Msg Vijay HEALTH 350.1.13.10 ity of [place] 4.2.7.2.686 Martin as TOÑO?BLEA [id number] [address] MEDICAL OFFICE [facility] 2021-08-16 2021-08-16 Patient Juan [facility] [[email or web address]] 1.2.840.114 [id number] Univers 00:00:00 00:00:00 Secure Msg Vijay HEALTH 350.1.13.10 ity of [place] 4.2.7.2.686 Martin as TOÑO?BLEA [phone] Me whit [place] 044 [facility] OFFICE [facility] 2021-08-15 2021-08-15 Office [facility] 1.2.840.114 [id number] Univers 15:30:00 16:16:42 Visit [facility] 350.1.13.10 it y of [place] 4.2.7.2.686 [place] as TOÑO?BLEA [phone] Me whit [place] 198 [facility] 2021-08-15 2021-08-15 [facility] [id number] Univers 15:30:00 16:16:42 [facility] [place] 2021-08-15 2021-08-15 Outpatient Farazna [facility] [id number] Univers 15:30:00 15:30:00 [facility] [place] 2021-08-15 2021-08-15 Outpatient Farzana [facility] [id number] Univers 15:30:00 15:30:00 [facility] [place] 2021-08-15 2021-08-15 Outpatient Farzana [facility] [id number] Univers 15:30:00 15:30:00 [facility] [place] 2021-08-15 2021-08-15 Emergency Aj [facility] ERT [id number] Univers 09:27:00 12:26:00 [facility] 2021-08-15 2021-08-15 [facility] 1.2.008.771 [id number] Univers 09:27:00 12:26:00 Maura LAWSON 350.1.13.10 ity of [place] 4.2.7.2.686 [place] [facility] [phone] [address] 2021-08-15 2021-08-15 Emergency X [facility] ERT [id number] Univers 09:27:00 12:26:00 MAURA [facility] 2021-08-15 2021-08-15 Patient Doctor JORDAN 1.2.840.114 [id number] Univers 00:00:00 00:00:00 Secure Msg Unassigned, YAZMIN 350.1.13.10 ity of [place] [facility] 4.2.7.2.686 Martin as [phone] [address] 2021-08-14 2021-08-14 Outpatient R JUAN [facility] [id number] Univers 13:25:00 23:59:00 VIJAY lechuga [facility] 2021-08-14 2021-08-14 Outpatient R JUAN [facility] [id number] Univers 13:25:00 23:59:00 VIJAY lechuga [facility] 2021-08-14 2021-08-14 Outpatient R JUAN [facility] [id number] Univers 13:25:00 13:25:00 VIJAY lechuga [facility] 2021-08-14 2021-08-14 Outpatient R JUAN [facility] [id number] Univers 12:19:07 13:24:00 VIJAY lechuga [facility] 2021-08-14 2021-08-14 Outpatient R JUAN [facility] [id number] Univers 12:19:07 13:24:00 VIJAY lechuga [facility] 2021-08-14 2021-08-14 [facility] [place] - Db [facility] [[email or web address]] 1.2.840.1 14 [id number] Univers 12:30:00 13:01:24 Visit Vijay Martinez 350.1.13.10 ity of [place] 4.2.7.2.686 Martin as TOÑO?BLEA [phone] [address] OFFICE [facility] 2021-08-14 2021-08-14 [facility], [place] - Db [facility] [[email or web address]] 1.2.840.1 14 [id number] Univers 12:30:00 12:45:00 Visit Vijay Martinez 350.1.13.10 ity of [place] 4.2.7.2.686 Martin as TOÑO?BLEA [id number] [address] OFFICE BUILDING 2021-08-14 2021-08-14 Office uJan [facility] [[email or web address]] 1.2.840.114 [id number] Univers 11:30:00 12:31:12 Visit Vijay PETTY 350.1.13.10 it y of [place] 4.2.7.2.686 [place] as TOÑO?BLEA [phone] Nj whit [address] MEDICAL OFFICE [facility] 2021-08-14 2021-08-14 Outpatient R JUAN [facility] [id number] Univers 11:30:00 12:31:12 VIJAY lechuga [facility] 2021-08-14 2021-08-14 [facility] 1.2.840.114 [id number] Univers 00:00:00 00:00:00 Secure Msg Vijay HEALTH 350.1.13.10 [facility] 4.2.7.2.686 [place] as TOÑO?BLEA [phone] Nj whit [address] MEDICAL OFFICE [facility] 2021-08-14 2021-08-14 Patient Ví[facility]athy[facility] 1.2.840.114 [id number] Univers 00:00:00 00:00:00 Secure Msg Vijay HEALTH 350.1.13.10 ity of [place] 4.2.7.2.686 Martin as TOÑO?BLEA [id number] Nj alessandra[address] MEDICAL OFFICE [facility] 2021-08-09 2021-08-09 Outpatient R JUDY [facility] [id number] Univers 14:45:00 14:45:00 ADÁN chino [facility] 2021-08-09 2021-08-09 Telephone [facility] 1.2.669.652 [id number] Univers 00:00:00 00:00:00 Vijay HEALTH 350.1.13.10 it y [facility] 4.2.7.2.686 Martin as TOÑO?BLEA [id number] [address] MEDICAL OFFICE [facility] 2021-08-08 2021-08-08 Out[facility] [id number] Univers 11:30:00 23:59:00 VIJAY chino [facility] 2021-08-08 2021-08-08 Hospital [facility] 1.2.840.114 [id number] Univers 11:30:00 23:59:00 Encounter Vijay HEALTH 350.1.13.10 [facility]y [facility] 4.2.7.2.686 [place] as TOÑO?BLEA [phone] Nj whit [place] 808 [facility] OFFICE [facility] 2021-08-08 2021-08-08 Outpatient R JUAN [facility] [id number] Univers 11:15:00 11:15:00 VIJAY lechuga [facility] 2021-08-08 2021-08-08 Outpatient R JUAN [facility] [id number] Univers 11:00:00 11:00:00 VIJAY lechuga [facility] 2021-08-08 2021-08-08 Patient Doctor JORDAN 1.2.840.114 [id number] Univers 00:00:00 00:00:00 Secure Msg Unassigned, YAZMIN 350.1.13.10 ity of [facility] 4.2.7.2.686 Martin as [phone] [address] 2021-08-07 2021-08-07 Office [facility] 1.2.840.114 [id number] Univers 09:30:00 10:23:21 Visit Vijay testhub 350.1.13.10 it y of [place] 4.2.7.2.686 [place] as TOÑO?BLEA [id number] Nj whit MARY [address] [place] [address] OFFICE [facility] 2021-08-07 2021-08-07 Outpatient R JUAN [facility] [id number] Univers 09:30:00 10:23:21 VIJAY lechuga [facility] 2021-08-07 2021-08-07 Outpatient R JUAN [facility] [id number] Univers 09:30:00 09:30:00 VIJAY lechuga [facility] 2021-08-07 2021-08-07 Patient [facility] 1.2.840.114 [id number] Univers 00:00:00 00:00:00 Secure Msg Vijay HEALTH 350.1.13.10 ity of [place] 4.2.7.2.686 Martin as TOÑO?BLEA [id number] Nj whit [place] [address] [place] [address] MEDICAL OFFICE [facility] 2021-08-07 2021-08-07 Patient [facility] 1.2.840.114 [id number] Univers 00:00:00 00:00:00 Secure Msg Vijay HEALTH 350.1.13.10 ity of [place] 4.2.7.2.686 [place] as TOÑO?BLEA [phone] Nj whit [address] MEDICAL OFFICE BUILDING 2021-08-07 2021-08-07 Patient Apurva [facility] [[email or web address] 1.2.840.114 [id number] Univers 00:00:00 00:00:00 Secure Msg Celina A FLACO 350.1.13.10 ity of [facility] 4.2.7.2.686 [place] [phone] [address] 2021-08-04 2021-08-04 Outpatient R SHADIA [facility] [id number] Univers 10:00:00 10:00:00 PETRA ity [facility] 2021-08-04 2021-08-04 Patient [facility] 1.2.840.114 [id number] Univers 00:00:00 00:00:00 Secure Mslaila Penaloza HEALTH 350.1.13.10 ity of [place] 4.2.7.2.686 Martin as TOÑO?BLEA [id number] [address] MEDICAL OFFICE [facility] 2021-08-03 2021-08-03 Office SOURAV Diaz 1.2.840.114 [id number] Univers 11:00:00 12:48:43 Visit Jayy Y 350.1.13.10 [facility] 4.2.7.2.686 Martin as BANK [phone] [address] 2021-08-03 2021-08-03 Outpatient R EMILY [facility] [id number] Univers 11:00:00 12:48:43 JAYY ity [facility] 2021-08-03 2021-08-03 Outpatient R EMILY [facility] [id number] Univers 11:00:00 11:00:00 JAYY ankush [facility] 2021-08-03 2021-08-03 Patient [facility] 1.2.840.114 [id number] Univers 00:00:00 00:00:00 Secure Msg Celina A FLACO 350.1.13.10 ity of [facility] 4[place].2.[place] [id number] [address] 2021-08-02 2021-08-02 Telephone [facility] [id number] Univers 00:00:00 00:00:00 Vijay HEALTH 350.1.13.10 it [facility] 4.2.7.2.686 [place] as TOÑO?BLEA [id number] [address] OFFICE [facility] 2021-07-21 2021-07-21 Outpatient R DARRION WYATT [facility] [id number] Univers 08:00:00 08:52:53 DARRION WYATT [facility] 2021-07-17 2021-07-17 Outpatient R JUAN [facility] [id number] Univers 11:30:00 11:30:00 [facility] 2021-07-17 [facility] 1.2.840.114 [id number] Univers 00:00:00 00:00:00 Secure Msg Vijay [facility] 350.1.13.10 ity of [place] 4.2.7.2.686 [place] TOÑO?BLEA [id number] [address] 2021-06-19 2021-06-19 Telephone [facility] [id number] Univers 00:00:00 00:00:00 Vijay HEALTH 350.1.13.10 it y of [place] 4.2.7.2.686 [place] TOÑO?BLEA [id number] [address] OFFICE [facility] 2021-06-09 2021-06-09 Telephone [facility] [id number] Univers 00:00:00 00:00:00 Reji [facility] 350.1.13.10 ity of [place].2.[place] [phone] [facility] 059 [facility] 2021-06-06 2021-06-06 Outpatient R DEYVI [facility] [id number] Univers 11:15:00 11:15:00 TETO lechuga [facility] 2021-06-06 2021-06-06 Outpatient R DEYVI [facility] [id number] Univers 11:15:00 11:15:00 TETO lechuga [facility] 2021-06-02 2021-06-02 Outpatient R CRISTINA [facility] [id number] Univers 15:45:00 15:45:00 WONDIFUL ity o f [facility] 2021-05-31 2021-05-31 Outpatient R JUAN [facility] [id number] Univers 10:00:00 10:46:31 VIJAY lechuga [facility] 2021-05-31 2021-05-31 Office [facility] 1.2.840.114 [id number] Univers 10:00:00 10:46:31 Visit Vijay HEALTH 350.1.13.10 it y of [place] 4.2.7.2.686 [place] as TOÑO?BLEA [id number] [address] MEDICAL OFFICE [facility] 2021-05-31 2021-05-31 Outpatient R JUAN [facility] [id number] Univers 10:00:00 10:46:31 VIJAY lechuga [facility] 2021-05-31 2021-05-31 Orders Doctor JORDAN 1.2.840.114 [id number] Univers 00:00:00 00:00:00 Only Unassigned, YAZMIN 350.1.13.10 ity of [place] [facility] 4.2.7.2.686 [place] as [phone] [address] 2021-05-26 2021-05-26 Telephone [facility] CENTER 1.2.406.079 [id number] Univers 00:00:00 00:00:00 Skylar A HEALTH 350.1.13.10 i ty of [place] 4.2.7.2.686 [place] as TOÑO?BLEA [phone] [address] MEDICAL OFFICE [facility] 2021-05-26 2021-05-26 Patient Prasanna Vargas [facility] [[email or web address]] 1.2.586.912 [id number] Univers 00:00:00 00:00:00 Secure Msg Cam [place] 350.1.13.10 ity of [place].2.7.2.[place] [phone] Nj dicaliyah NAL 134 [facility] 2021-05-25 2021-05-25 Telemedici [facility] 1.2.840.114 [id number] Univers 14:00:00 14:30:00 ne Visit Skylar A HEALTH 350.1.13.10 ity of [place] 4.2.7.2.686 [place] as TOÑO?BLEA [phone] [facility] IV[address] 2021-05-25 2021-05-25 [facility] [id number] Univers 14:00:00 14:00:00 [facility] 2021-05-25 2021-05-25 Out[facility] [id number] Univers 14:00:00 14:00:00 [facility] 2021-05-25 2021-05-25 [facility] 1.2.840.114 [id number] Univers 00:00:00 00:00:00 Secure Msg Skylar A HEALTH 350.1.13.10 ity of [place] 4.2.7.2.686 [place] as TOÑO?BLEA [phone] [address] 2021-05-25 2021-05-25 [facility] 1.2.840.114 [id number] Univers 00:00:00 00:00:00 Secure Msg Skylar A HEALTH 350.1.13.10 ity of [place] 4.2.7.2.686 [place] as TOÑO?BLEA [phone] [address] 2021-05-24 2021-05-24 Telephone Ponce [facility] [[email or web address]] 1.2.409.131 [id number] Univers 00:00:00 00:00:00 Sendzohra Cuello [place] 350.1.13.10 ity of [place].2.7.2.[place] [phone] [facility] NAL 059 [facility] 2021-05-24 2021-05-24 Patient Serra, [facility] [[email or web address]] 1.2.840.114 [id number] Univers 00:00:00 00:00:00 Secure Msg Sendil K.[facility]. [place] 350.1.13.10 ity [facility] 4.2.7.2.[place] [phone] Nj whit TORRES 059 [facility] 2021-05-24 2021-05-24 Patient [facility] 1.2.840.114 [id number] Univers 00:00:00 00:00:00 Secure Msg Wondiful A HEALTH 350.1.13.10 ity of [place] 4.2.7.2.686 [place] as TOÑO?BLEA [id number] [address] OFFICE [facility] 2021-05-23 2021-05-23 Outpatient R [facility] [id number] Univers 10:00:00 10:00:00 ity [facility] 2021-05-23 2021-05-23 Outpatient R [facility] [id number] Univers 10:00:00 10:00:00 ity of [facility] 2021-05-23 2021-05-23 Patient [facility] 1.2.840.114 [id number] Univers 00:00:00 00:00:00 Secure Msg Wondiful A HEALTH 350.1.13.10 ity of [place] 4.2.7.2.686 [place] as TOÑO?BLEA [id number] [address] OFFICE [facility] 2021-05-16 2021-05-16 Outpatient [facility] [id number] Univers 09:00:00 09:00:00 TETO ity [facility] 2021-05-12 2021-05-12 Orders Doctor JORDAN 1.2.840.114 [id number] Univers 00:00:00 00:00:00 Only Unassigned, YAZMIN 350.1.13.10 ity of [place] [facility] 4.2.7.2.686 Martin as [phone] [address] 2021-05-10 2021-05-10 Outpatient [facility] [id number] Univers 13:00:00 13:00:00 WONDIFUL ity o f [facility] 2021-05-10 2021-05-10 Outpatient R CRISTINA [facility] [id number] Univers 13:00:00 13:00:00 WONDIFUL ity o f [facility] 2021-05-09 2021-05-09 Telephone Prasanna Vargas [facility] [[email or web address]] 1.2.840.114 [id number] Univers 00:00:00 00:00:00 Cam [place] 350.1.13.10 i ty of [facility] 4.2.7.2.[place] [phone] Nj dicla NAL 134 [facility] 2021-05-09 2021-05-09 Patient [facility] 1.2.840.114 [id number] Univers 00:00:00 00:00:00 Secure Msg Sendil K.[facility]. [place] 350.1.13.10 ity of [facility] 4.2.7.2.[place] [phone] Nj dicla NAL 9 [facility] 2021-05-08 2021-05-08 Outpatient [facility] [id number] Univers 16:00:00 16:00:00 JEDAYANA lechuga [facility] 2021-05-08 2021-05-08 Outpatient R [facility] [id number] Univers 16:00:00 16:00:00 JEDAYANA lechuga [facility] 2021-05-08 2021-05-08 Patient [facility] 1.2.840.114 [id number] Univers 00:00:00 00:00:00 Secure Msg Sendil K.[facility]. [place] 350.1.13.10 ity of [facility] 4.2.7.2.[place] [phone] Nj dical NAL 059 [facility] 2021-05-08 2021-05-08 Patient [facility] 1.2.840.114 [id number] Univers 00:00:00 00:00:00 Secure Msg Sendil K.H. [place] 350.1.13.10 ity of [place] 4.2.7.2.[place] [phone] Nj dical NAL 059 [facility] 2021-05-04 2021-05-04 Patient Serra, [facility] [[email or web address]] 1.2.840.114 [id number] Univers 00:00:00 00:00:00 Secure Msg Rad Benoit.H. [place] 350.1.13.10 ity of [place] 4.2.7.2.686 [place] [phone] Nj dical NAL 059 [facility] 2021-05-04 2021-05-04 Patient [facility] 1.2.840.114 [id number] Univers 00:00:00 00:00:00 Secure Msg Reji [place] 350.1.13.10 ity of [place] 4.2.7.2.686 [place] [phone] Nj dicla NAL 9 [facility] 2021-05-03 2021-05-03 Outpatient R [facility] [id number] Univers 11:15:36 23:59:00 REJI maradiagay o f [facility] 2021-05-03 2021-05-03 [facility] 1.2.840.114 [id number] Univers 11:15:36 23:59:00 Encounter Reji [place] 350.1.13.10 ity of [place] 4.2.7.2.[place] [phone] [facility] 846 [facility] 2021-05-03 2021-05-03 Telephone [facility] 1.2.840.114 [id number] Univers 00:00:00 00:00:00 Wondiful A HEALTH 350.1.13.10 ity of [place] 4.2.7.2.686 [place] as TOÑO?BLEA [phone] Nj dicaliyah KNEY 044 [facility] 2021-05-02 2021-05-02 Telephone [facility] 1.2.338.887 [id number] Univers 00:00:00 00:00:00 Sendzohra K.[facility]. [place] 350.1.13.10 ity of [place] 4.2.7.2.[place] [phone] Nj dical NAL 9 [facility] 2021-05-02 2021-05-02 Patient Cristina [facility] [[email or web address]] 1.2.840.114 [id number] Univers 00:00:00 00:00:00 Secure Msg Wondiful A HEALTH 350.1.13.10 ity of [place] 4.2.7.2.686 [place] as TOÑO?BLEA [phone] [address] OFFICE [facility] 2021-05-02 2021-05-02 Telephone Cristina [facility] [[email or web address]] 1.2.840.114 [id number] Univers 00:00:00 00:00:00 Wondiful A HEALTH 350.1.13.10 ity of [place] 4.2.7.2.686 [place] as TOÑO?BLEA [phone] [address] 2021-05-02 2021-05-02 [facility] 1.2.840.114 [id number] Univers 00:00:00 00:00:00 Secure Msg Sendil K.[facility]. [place] 350.1.13.10 ity of [place] 4.2.7.2.[place] [phone] [address] 2021-05-02 2021-05-02 Patient Cristina [facility] [[email or web address]] 1.2.840.114 [id number] Univers 00:00:00 00:00:00 Secure Msg Wondiful A HEALTH 350.1.13.10 ity of [place] 4.2.7.2.686 [place] as TOÑO?BLEA [phone] [address] 2021-04-28 2021-04-28 Patient [facility] 1.2.840.114 [id number] Univers 00:00:00 00:00:00 Secure Msg Wondiful A HEALTH 350.1.13.10 ity of [place] 4.2.7.2.686 [place] as TOÑO?BLEA [phone] [address] 2021-04-27 2021-04-27 Emergency X [facility] ERT [id number] Univers 14:24:00 15:49:00 MAGGIE ity of [facility] 2021-04-27 2021-04-27 Emergency Alfonso, [facility] [[email or web address]] 1.2.840.114 [id number] Univers 14:24:00 15:49:00 Maggie [place] 350.1.13.10 ity of [place] 4.2.7.2.686 [place] B[place] [phone] [facility] [address] [place] 2021-04-27 2021-04-27 Laboratory Only, Ang Db Test [facility] [[email or web address]] 1.2.8 40.114 [id number] Univers 11:15:00 11:30:00 Only Unknown, Attending HEALTH 350.1.13.10 ity of [place] 4.2.7.2.686 [place] TÑOO?BLEA [phone] [facility] [address] [place] MEDICAL OFFICE BUILDING 2021-04-27 2021-04-27 Outpatient R SIL [facility] [id number] Univers 11:15:00 11:15:00 [facility] 2021-04-27 2021-04-27 Orders Doctor JORDAN 1.2.840.114 [id number] Univers 00:00:00 00:00:00 Only Unassigned, YAZMIN 350.1.13.10 [facility] 4.2.7.2.686 [place] as [phone] [facility] [address] [place] 2021-04-20 2021-04-20 Outpatient R JUSTINE [facility] [id number] Univers 15:00:00 15:00:00 EDER ity of [facility] 2021-04-13 2021-04-13 Patient Cristina [facility] [[email or web address]] 1.2.840.114 [id number] Univers 00:00:00 00:00:00 Secure Msg Wondiful A HEALTH 350.1.13.10 ity of [place] 4.2.7.2.686 [place] as TOÑO?BLEA [phone] [facility] [address] [place] MEDICAL OFFICE BUILDING 2021-04-12 2021-04-12 Telephone Cristina [facility] [[email or web address]] 1.2.840.114 [id number] Univers 00:00:00 00:00:00 Wondiful A HEALTH 350.1.13.10 ity of [place] 4.2.7.2.686 Martin as TOÑO?BLEA [phone] Nj dical KNEY [address] [place] MEDICAL OFFICE BUILDING 2021-03-27 2021-03-27 Telephone Prasanna Vargas [facility] [[email or web address]] 1.2.840.114 [id number] Univers 00:00:00 00:00:00 [facility] 350.1.13.10 i ty of [place] 4.2.7.2.686 [place] [phone] Nj dical NAL [address] BUILDING 2021-03-24 2021-03-24 Patient Doctor JORDAN 1..840.114 [id number] Univers 00:00:00 00:00:00 Secure Msg Unassigned, YAZMIN 350.1.13.10 [facility] 4.2.7.2.686 [place] as [phone] [address] 2021-03-23 2021-03-23 Outpatient R KAVYA [facility] [id number] Univers 13:30:00 13:30:00 CHILVANA ity o f [facility] 2021-03-23 2021-03-23 Outpatient R KAVYA [facility] [id number] Univers 13:30:00 13:30:00 CHILVANA ity o f [facility] 2021-03-22 2021-03-22 Outpatient R ADITYA MEEKS [facility] [id number] Univers 09:20:00 09:20:00 NEHEMIAH MEEKSNVL ity [facility] 2021-03-22 2021-03-22 Outpatient R NEHEMIAH MEEKSNVEz [facility] [id number] Univers 09:20:00 09:20:00 NEHEMIAH MEEKSNVL ity [facility] 2021-03-20 2021-03-20 Outpatient R CRISTINA [facility] [id number] Univers 00:00:00 00:00:00 WONDIFUL ity o f [facility] 2021-03-18 2021-03-18 Donal[facility] 1.2.840.114 [id number] Univers 00:00:00 00:00:00 Management Wondiful A HEALTH 350.1.13.10 ity of [place] 4.2.7.2.686 Martin as TOÑO?BLEA [phone] Nj whit [place] [address] [place] MEDICAL OFFICE [facility] 2021-03-16 2021-03-16 [facility], Ang - Db [facility] [[email or web address]] 1.2.840.1 14 [id number] Univers 11:16:07 11:31:07 Visit Claudette Evans A HEALTH 350.1.13.1 0 ity of [place] 4.2.7.2.686 [place] as TOÑO?BLEA [phone] Nj whit [place] 353 [facility] OFFICE [facility] 2021-03-16 2021-03-16 Outpatient [facility] [id number] Univers 11:30:00 11:30:00 WONDIFUL ity o f [facility] 2021-03-16 2021-03-16 Outpatient [facility] [id number] Univers 11:00:00 11:14:45 WONDIFUL ity o f [facility] 2021-03-16 2021-03-16 Office [facility] 1.2.840.114 [id number] Univers 10:00:58 11:14:45 Visit Wonkacey A HEALTH 350.1.13.10 ity of [place] 4.2.7.2.686 [place] as TOÑO?BLEA [phone] [address] OFFICE [facility] 2021-03-16 2021-03-16 Patient [facility] 1.2.840.114 [id number] Univers 00:00:00 00:00:00 Secure Msg Wondiful A HEALTH 350.1.13.10 ity of [place] 4.2.7.2.686 [place] as TOÑO?BLEA [phone] [facility] [address] MEDICAL OFFICE [facility] 2021-03-02 2021-03-02 Outpatient R CRISTINA [facility] [id number] Univers 16:15:00 16:15:00 WONDIFUL ity o f [facility] 2021-02-28 2021-02-28 Outpatient R MITCHELL [facility] [id number] Univers 18:30:00 18:30:00 ILEANA lechuga [facility] 2021-02-28 2021-02-28 Telephone [facility] 1.2.840.114 [id number] Univers 00:00:00 00:00:00 Wondiful A Health 350.1.13.10 ity of [place] 4.2.7.2.686 [place] as Toño?Blea [phone] [address] 2021-02-27 2021-02-27 Outpatient R STEPHANY [facility] [id number] Univers 09:00:00 09:00:00 AMELIA lechuga [facility] 2021-02-23 2021-02-23 Telephone [facility] 1.2.840.114 [id number] Univers 00:00:00 00:00:00 Wondiful A Health 350.1.13.10 ity of [place] 4.2.7.2.686 [place] as Toño?Blea [phone] [address] 2021-02-10 2021-02-10 Emergency Dev, Kaycee [facility] [[email or web address]] 1.2.840.114 [id number] Univers 18:12:00 23:39:00 Sharlene [place] 350.1.13.10 i ty of [place] 4.2.7.2.686 [place] [phone] [facility] [address] [place] 2021-02-10 2021-02-10 Patient [facility] 1.2.840.114 [id number] Univers 00:00:00 00:00:00 Secure Msg Wondiful [facility] 350.1.13.10 [facility] 4.2.7.2.686 [place] as TOÑO?BLEA [id number] [address] 2021-02-10 2021-02-10 Patient [facility] 1.2.840.114 [id number] Univers 00:00:00 00:00:00 Secure Msg Wondiful A HEALTH 350.1.13.10 ity of [place] 4.2.7.2.686 Martin as TOÑO?BLEA [phone] [address] MEDICAL OFFICE BUILDING 2021-02-10 2021-02-10 Patient [facility] 1.2.840.114 [id number] Univers 00:00:00 00:00:00 Secure Msg Wondiful A HEALTH 350.1.13.10 ity of [place] 4.2.7.2.686 [place] as TOÑO?BLEA [phone] Nj whit [place] [address] [place] MEDICAL OFFICE [facility] 2021-02-10 2021-02-10 Patient [facility] 1.2.840.114 [id number] Univers 00:00:00 00:00:00 Secure Msg Wondiful A HEALTH 350.1.13.10 ity of [place] 4.2.7.2.686 Martin as TOÑO?BLEA [phone] Nj whit [place] [address] [place] MEDICAL OFFICE [facility] 2021-02-09 2021-02-09 Hospital [facility] 1.2.893.899 [id number] Univers 13:40:00 23:59:00 Encounter Wondiful A Health 350.1.13.10 ity of [place] 4.2.7.2.686 [place] as Toño?Blea [phone] Nj whit [place] 809 [facility] Hospital Office [facility] 2021-02-09 2021-02-09 [facility], Ang - [facility] 1.2.840.1 14 [id number] Univers 13:49:05 14:04:05 Visit Claudette [facility] 350.1.13.1 0 ity of [place] 4.2.7.2.686 Martin as Toño?Blea [phone] Nj whit [place] [address] [place] Medical Office Building 2021-02-09 2021-02-09 Office [facility] 1.2.840.114 [id number] Univers 12:23:13 13:47:12 Visit Wonlgful A Health 350.1.13.10 ity of [place] 4.2.7.2.686 [place] as Toño?Blea [phone] Nj whit [place] 044 [facility] Hospital Office [facility] 2021-02-09 2021-02-09 Outpatient R CRISTINA [facility] [id number] Univers 13:00:00 13:00:00 WONDIFUL ity o f [facility] 2021-02-09 2021-02-09 Patient Doctor ORTEGA 1.2.840.114 [id number] Univers 00:00:00 00:00:00 Secure Msg Unassigned, YAZMIN 350.1.13.10 [facility]y [facility] 4.2.7.2.686 [place] as [phone] [address] 2021-02-08 2021-02-08 Outpatient R ADITYA MEEKS [facility] [id number] Univers 10:20:00 10:20:00 JEANNA [facility] itchino [facility] 2021-02-07 2021-02-07 Patient [facility] 1.2.840.114 [id number] Univers 00:00:00 00:00:00 Secure Msg Wondiful A HEALTH 350.1.13.10 ity of [place] 4.2.7.2.686 [place] as TOÑO?BLEA [id number] [address] MEDICAL OFFICE [facility] 2021-02-02 2021-02-02 Outpatient [facility] [id number] Univers 10:30:00 10:30:00 SKYLAR lechuga [facility] 2021-02-02 2021-02-02 Telephone [facility] 1.2.840.114 [id number] Univers 00:00:00 00:00:00 Wondiful A Health 350.1.13.10 ity of [place] 4.2.7.2.686 Martin as Toño?Blea [id number] [address] Medical Office [facility] 2021-02-01 2021-02-01 Outpatient [facility] [id number] Univers 08:30:00 08:30:00 SKYLARLEE lechuga [facility] 2021-01-31 2021-01-31 Urgent [facility] 1.2.840.114 [id number] Univers 18:44:04 19:41:26 Care [facility] 350.1.13.10 i ty of [place] 4.2.7.2.686 [place] as Toño?Blea [phone] Nj whit [place] [address] [place] Medical Office [facility] 2021-01-31 2021-01-31 Outpatient R OLIVER [facility] [id number] Univers 19:00:00 19:00:00 FLACO lechuga o f [facility] 2021-01-31 2021-01-31 Telephone Cristina [facility] [[email or web address]] 1.2.840.114 [id number] Univers 00:00:00 00:00:00 Wondiful A Health 350.1.13.10 ity of [place] 4.2.7.2.686 [place] as Toño?Blea [phone] Nj dicaliyah [place] 044 [facility] Hospital Office [facility] 2021-01-31 2021-01-31 Patient Cristina [email or web address] 1.2.840.114 [id number] Univers 00:00:00 00:00:00 Secure Msg Wondiful A HEALTH 350.1.13.10 ity of [place] 4.2.7.2.686 [place] as TOÑO?BLEA [phone] [facility] [place] 044 [facility] OFFICE [facility] 2021-01-30 2021-01-30 Telephone [facility] 1.2.236.726 [id number] Univers 00:00:00 00:00:00 Sendil Cuate [place] 350.1.13.10 ity of [place].2.[place].2.[place] [phone] Nj whit torres 059 [facility] 2021-01-30 2021-01-30 Patient Cristina [facility] [[email or web address]] 1.2.840.114 [id number] Univers 00:00:00 00:00:00 Secure Msg Wondiful A HEALTH 350.1.13.10 ity of [place] 4.2.7.2.686 [place] as PROFESSIO [phone] [address] OFFICE [facility] ONE 2021-01-26 2021-01-26 Outpatient R PONCE [facility] [id number] Univers 14:00:00 14:00:00 SENDIL itchino of [facility] 2021-01-26 2021-01-26 Patient Yaneli [facility] [[email or web address]] 1.2.840.114 [id number] Univers 00:00:00 00:00:00 Secure Msg Skylar A HEALTH 350.1.13.10 ity of [place] 4.2.7.2.686 Martin as TOÑO?BLEA [phone] [address] OFFICE [facility] 2021-01-25 2021-01-25 Outpatient R [facility] [id number] Univers 15:00:00 15:00:00 ity of [facility] 2021-01-21 2021-01-21 Patient [facility] 1.2.840.114 [id number] Univers 00:00:00 00:00:00 Secure Msg Skylar [facility] 350.1.13.10 ity of [place] 4.2.7.2.686 [place] as TOÑO?BLEA [phone] [address] 2021-01-20 2021-01-20 Telemedici [facility] 1.2.840.114 [id number] Univers 16:51:22 17:12:41 ne Visit Skylar [facility] 350.1.13.10 ity of [place] 4.2.7.2.686 [place] as Toño?Blea [phone] [address] 2021-01-20 2021-01-20 Outpatient [facility] [id number] Univers 16:30:00 16:30:00 SKYLAR [facility] 2021-01-19 2021-01-19 Outpatient [facility] [id number] Univers 10:15:00 10:15:00 KAYLEY ity [facility] 2021-01-14 2021-01-14 JORDAN Guzman 1.2.840.114 [id number] Univers 00:00:00 00:00:00 Management Kassandra ARCE 350.1.13.10 ity [facility] 4.2.7.2.686 [place] as [phone] [address] 2021-01-14 2021-01-14 Patient Doctor JORDAN 1.2.840.114 [id number] Univers 00:00:00 00:00:00 Secure Msg Unassigned, YAZMIN 350.1.13.10 [facility] 4.2.7.2.686 [place] as [phone] [facility] [address] 2021-01-12 2021-01-12 Emergency [facility] 1.2.175.559 [id number] Univers 16:10:00 19:45:00 Karin Yanes L[place] 350.1.13.10 i ty of [place]2.[place] [phone] [facility] [address] [place] 2021-01-12 2021-01-12 Outpatient [facility] [id number] Univers 15:20:00 15:20:00 [facility] 2021-01-12 2021-01-12 Urgent Thony Johnson [email or web address] 1.2.840.114 [id number] Univers 14:46:57 15:06:57 [facility] 350.1.13.10 ity of [place] 4.2.7.2.686 [place] as Toño?Blea [phone] [address] Medical Office Building 2020-12-26 2020-12-26 Outpatient [facility] [id number] Univers 15:30:00 16:13:32 SENDIL ity of [facility] 2020-12-26 2020-12-26 Office [facility] 1.2.840.114 [id number] Univers 15:30:00 16:13:32 Visit Rad LAWSON 350.1.13.10 ity [place] [phone] [place] dicla NAL 9 Branch [facility] 2020-12-26 2020-12-26 Office [facility] 1.2.840.114 [id number] Univers 15:00:32 16:13:32 Visit Rad [place] 350.1.13.10 [place]y [place] [phone] [place] dicla nal 059 Branch [facility] 2020-12-26 2020-12-26 [facility] [id number] Univers 15:30:00 15:30:00 SENDIL itchino [facility] 2020-11-29 2020-11-29 Patient Ponce [facility] [[email or web address]] 1.2.840.114 [id number] Univers 00:00:00 00:00:00 Secure Msg Sendil Cuate LULU [id number] [facility] 4.2.7.2.686 [facility] [phone] N[place] dical NAL 059 Branch BUILDING 2020-11-22 2020-11-22 [facility] [id number] Univers 11:00:00 11:00:00 CELINA ankush [facility] 2020-11-10 2020-11-10 Urgent Alissa Collins [facility] [[email or web address]] 1.2.840.114 [id number] 18:42:46 19:53:43 [facility] 350.1.13.10 [place] 4.2.7.2.686 Professio [phone] nal 0[address] Office [address] One 2020-11-10 2020-11-10 Outpatient R [facility] [id number] Univers 19:00:00 19:00:00 ity [facility] 2020-10-31 2020-10-31 Emergency Kaycee Méndez [facility] [[email or web address]] 1.2.840.114 [id number] 18:52:00 22:15:00 Sharlene [place] 350.1.13.10 [place] 4.2.7.2.686 [place] [phone] [id number] 2020-10-31 2020-10-31 [facility] [id number] Univers 19:00:00 19:00:00 CARI lechuga o f [facility] 2020-10-31 2020-10-31 Orders Doctor ORTEGA 1.2.840.114 [id number] 00:00:00 00:00:00 Only Unassigned, YAZMIN 350.1.13.10 [place] [facility] 4.2.7.2.686 [id number] 009 2020-10-20 2020-10-20 Emergency Kaycee Méndez [facility] [[email or web address]] 1.2.840.114 [id number] 14:02:00 17:13:00 Sharlene [place] 350.1.13.10 [place] 4.2.7.2.686 [place] [phone] [id number] 2020-10-18 2020-10-18 Patient Prasanna Vargas [facility] [[email or web address]] [id number] [id number] Univers 00:00:00 00:00:00 Secure Msg [place] 350.1.13.10 [facility] [place] [phone] [address] 2020-10-14 2020-10-14 Hospital Prasanna Vargas [facility] [[email or web address]] 1.2.840.114 [id number] 10:00:00 23:59:00 Encounter [place] 350.1.13.10 [place] 4.2.7.2.686 [place] [phone] [phone] 2020-10-14 Outpatient Farzana MIXON [facility] [id number] Univers 13:30:00 13:30:00 CELINA lechuga [facility] 2020-10-11 2020-10-11 Patient Prasanna Vargas [facility] [[email or web address]] [id number] Univers 00:00:00 00:00:00 Secure Msg Cam [place] 350.1.13.10 ity of [place] [phone] [address] 2020-10-11 2020-10-11 Patient Prasanna Vargas [facility] [[email or web address]] 1.2.260.418 [id number] Univers 00:00:00 00:00:00 Secure Msg Cam [place] 350.1.13.10 ity of [facility] [place] [phone] [address] 2020-10-09 2020-10-09 Emergency [facility] 1.2.873.452 [id number] 12:00:00 15:57:00 Anna Ricketts [place] 350.1.13.10 [place] 4.2.7.2.686 [place] [id number] 084 2020-10-07 2020-10-07 Patient Prasanna Vargas [facility] 1.2.898.298 [id number] Univers 00:00:00 00:00:00 Secure Msg Cam [place] 350.1.13.10 ity of [place] [phone] Nj dical NAL [address] [place] [address] 2020-10-07 2020-10-07 Patient Prasanna Vargas [facility] 1.2.979.963 [id number] Univers 00:00:00 00:00:00 Secure Msg Cam [place] 350.1.13.10 ity of [place] [phone] Nj dical NAL [address] [place] [address] 2020-10-07 2020-10-07 Patient Prasanna Vargas [facility] 1.2.101.096 [id number] Univers 00:00:00 00:00:00 Secure Msg Cam [place] 350.1.13.10 ity of [place].2.[place] [phone] Nj dical NAL [address] [place] [address] 2020-10-07 2020-10-07 Patient Prasanna [facility] 1.2.259.468 [id number] Univers 00:00:00 00:00:00 Secure Msg Cam [place] 350.1.13.10 ity of [place].2.[place] [phone] Nj dical NAL [address] [place] [address] 2020-10-07 2020-10-07 Patient Prasanna [facility] 1.2.733.575 [id number] Univers 00:00:00 00:00:00 Secure Msg Cam [place] 350.1.13.10 ity of [place] 4.2.7.2.[place] [phone] Nj dical NAL [address] [place] [address] 2020-10-07 2020-10-07 Patient Prasanna Vargas [facility] 1.2.132.221 [id number] Univers 00:00:00 00:00:00 Secure Msg Cam [place] 350.1.13.10 ity of [place] 4.2.[place].2.[place] [phone] Nj dical NAL [address] [place] [address] 2020-10-07 2020-10-07 Patient Prasanna Vargas [facility] [[email or web address]] 1.2.958.817 [id number] Univers 00:00:00 00:00:00 Secure Msg Cam [place] 350.1.13.10 ity of [place] 4.[place].2.[place] [phone] Nj dic[address] 2020-10-06 2020-10-06 Office Prasanna Vargas [facility] [[email or web address]] 1.2.689.120 [id number] 08:53:00 09:46:44 Visit Cam [place] 350.1.13.10 [place] 4.2.7.2.686 Professio [phone] [address] 2020-10-06 2020-10-06 Outpatient R ALICIA [facility] [id number] Univers 09:30:00 [facility]:30:[facility] 2020-10-04 2020-10-04 Outpatient R APURVA [facility] [id number] Univers 14:00:00 14:00:00 CELINA [facility] 2020-09-30 2020-09-30 Outpatient R APURVA [facility] [id number] Univers 10:30:00 10:30:00 CELINA [facility] 2020-09-29 2020-09-29 [facility] [id number] Univers 13:45:00 13:45:00 PREET chino [facility] 2020-09-06 2020-09-06 Outpatient R ALICIA [facility] [id number] Univers 15:30:00 15:30:00 [facility] 2020-09-05 2020-09-05 Patient Prasanna Vargas [facility] [[email or web address]] 1.2.132.997 [id number] Univers 00:00:00 00:00:00 Secure Msg Cam [place] 350.1.13.10 ity [facility] 4.2.7.2.[place] [phone] Nj dical [address] 2020-09-02 2020-09-02 Outpatient DARRION QUIROZ [facility] [id number] Univers 15:40:00 15:40:00 DARRION WYATT [facility] 2020-08-31 2020-08-31 Outpatient Farzana SERRA [facility] [id number] Univers 10:30:00 10:30:00 [facility] 2020-08-31 2020-08-31 Patient Prasanna Vargas [facility] [[email or web address]] 1.2.252.177 [id number] Univers 00:00:00 00:00:00 Secure Msg [facility] 350.1.13.10 [facility] 4.2.7.2.686 Terrie dailey PROFESSIO [phone] Nj dical [address] 2020-08-18 2020-08-18 Outpatient R PRASANNA VARGAS [facility] [id number] Univers 09:30:00 09:30:00 [facility] 2020-08-11 2020-08-11 Outpatient R PRASANNA VARGAS [facility] [id number] Univers 13:30:00 13:30:00 [facility] 2020-08-04 2020-08-04 Outpatient R JUSTINE [facility] [id number] Univers 14:00:00 14:00:00 EDER [facility] 2020-07-28 2020-07-28 Outpatient Farzana SERRA [facility] [id number] Univers 10:30:00 10:30:00 SENDIL [facility] 2020-06-30 2020-06-30 Outpatient Farzana EVANS [facility] [id number] Univers 16:15:00 16:15:00 WONDIFUL ity o f [facility] 2020-06-17 2020-06-17 Outpatient DARRION QUIROZ [facility] [id number] Univers 15:00:00 15:00:00 DARRION WYATT [facility] 2020-06-16 2020-06-16 Outpatient Farzana SERRA [facility] [id number] Univers 15:30:00 15:30:00 SENDIL [facility] 2020-06-09 2020-06-09 Outpatient R NI DISLA [facility] [id number] Univers 12:30:00 12:30:00 ity [facility] 2020-06-08 2020-06-08 Outpatient R NI DISLA [facility] [id number] Univers 08:00:00 08:00:00 ity [facility] 2020-06-02 2020-06-02 Outpatient R PONCE [facility] [id number] Univers 09:00:00 09:00:00 SENDIL ity [facility] 2020-05-28 2020-05-28 Outpatient R NATASHA [facility] [id number] Univers 10:00:00 10:00:00 CARI lechuga o f [facility] 2020-05-26 2020-05-26 Patient Cristina [facility] [[email or web address]] 1.2.840.114 [id number] Univers 00:00:00 00:00:00 [facility] 350.1.13.10 ity [facility] 4.2.7.2.686 [place] PROFESSIO [phone] Nj dical NAL [address] OFFICE BUILDING ONE 2020-05-24 2020-05-24 Outpatient R NI DISLA [facility] [id number] Univers 10:00:00 10:00:00 [facility] 2020-05-24 2020-05-24 Patient Doctor [facility] [[email or web address]] 1.2.840.114 [id number] Univers 00:00:00 00:00:00 [facility] [place] 350.1.13.10 [place] [phone] Nj dical NAL [address] 2020-05-19 2020-05-19 Outpatient R OSITO HITCHCOCK [facility] [id number] Univers 16:30:00 16:30:00 ity [facility] 2020-05-17 2020-05-17 Outpatient R DARRION WYATT [facility] [id number] Univers 13:00:00 13:00:00 [facility] 2020-05-16 2020-05-16 Outpatient R CRISTINA, [facility] [id number] Univers 16:00:00 16:00:00 WONDIFUL ity o f [facility] 2020-05-09 2020-05-09 Patient Cristina [facility] [[email or web address]] 1.2.840.114 [id number] Univers 00:00:00 00:00:00 Secure Msg Wondiful [facility] 350.1.13.10 ity of [place] 4.2.7.2.686 [place] PROFESSIO [phone] Nj dical [address] OFFICE BUILDING ONE 2020-05-08 2020-05-08 Emergency X VIRGIE [facility] [[email or web address]] ERT [id number] Univers 10:24:00 13:03:00 OLAMIDE chino [facility] 2020-05-03 2020-05-03 [facility] [id number] Univers 15:00:00 15:00:00 WONDIFUL ity o f [facility] 2020-04-30 2020-05-01 Outpatient X HOFF, [facility] [[email or web address]] [place] [id number] Univers 11:14:00 15:50:00 RODRIGUEZ [facility] 2020-04-30 2020-04-30 [facility] [id number] Univers 10:20:00 10:20:00 ROSALES [facility] 2020-04-30 2020-04-30 [facility] [id number] Univers 10:15:00 10:15:00 ROSALES [facility] 2020-04-29 2020-04-29 Patient Heaven [place] [facility] 1.2.840.114 [id number] Univers 00:00:00 00:00:00 Secure Msg Y HEALTH 350.1.13.[address] [facility] [place]2.[place].2.[place] [phone] [address] 2020-04-28 2020-04-28 Outpatient R OSITO HITCHCOCK [facility] [id number] Univers 14:00:00 14:00:00 ity [facility] 2020-04-25 2020-04-25 [facility] [id number] Univers 16:15:00 16:15:00 WONDIFUL ity o f [facility] 2020-04-22 2020-04-22 Patient Justine [facility] [[email or web address]] 1.2.840.114 [id number] Univers 00:00:00 00:00:00 Secure Msg Eder [facility].13.10 [facility] 4.2.7.2.686 Terrie ESCUDEROIO [phone] [address] 2020-04-18 2020-04-18 Outpatient R OSITO HITCHCOCK [facility] [id number] Univers 10:00:00 10:00:00 ity [facility] 2020-04-15 2020-04-15 Outpatient R PONCE [facility] [id number] Univers 10:30:00 10:30:00 [facility]IL [facility] 2020-04-12 2020-04-13 Outpatient X MARICRUZ [facility] [id number] Univers 13:38:00 16:25:00 [facility] 2020-03-17 2020-03-17 Outpatient R DEYVI [facility] [id number] Univers 16:15:00 16:15:00 [facility] 2020-03-04 2020-03-04 Refill [facility] 1.2.840.114 [id number] 00:00:00 00:00:00 MULTISPEC 350.1.13.10 IALTY 4.2.7.2.686 CENTER [id number] [facility] 2020-02-25 2020-02-25 Outpatient R OSITO HITCHCOCK [facility] [id number] Univers 16:00:00 16:00:00 [facility] 2020 Outpatient R DEYVI [facility] [id number] Univers 14:00:00 14:00:00 TETO [facility] 2020-02-08 2020-02-08 Outpatient R PRASANNA VARGAS [facility] [id number] Univers 10:30:00 10:30:00 [facility] 2020-02-05 2020-02-05 Patient Prasanna Vargas [facility] [[email or web address]] [id number] Univers 00:00:00 00:00:00 Secure Msg Cam [place] 350.1.13.10 ity of [place] 4[place]2.7.2.[place] [id number] Nj dical [address] 2020-02-04 2020-02-04 Outpatient R HEAVEN HITCHCOCKSIR [facility] [id number] Univers 13:30:00 13:30:00 ity [facility] 2020-01-23 2020-01-23 Outpatient R [facility] [id number] Univers 10:15:00 10:15:00 ity [facility] 2020-01-21 2020-01-21 Outpatient R CORETTA OSITO [facility] [id number] Univers 13:00:00 13:00:00 ity of [facility] 2020-01-14 2020-01-14 Outpatient R CORETTA OSITO [facility] [id number] Univers 16:00:00 16:00:00 ity [facility] 2020-01-05 2020-01-05 Outpatient R PRASANNA VARGAS [facility] [id number] Univers 13:45:00 13:45:00 ity of [facility] 2020-01-05 2020-01-05 Patient VargasPrasanna [facility] [[email or web address]] [id number] Univers 00:00:00 00:00:00 Secure Msg Cam [place] 350.1.13.10 ity of [place].2.[place] [phone] [address] 2019-12-03 2019-12-03 Outpatient R AKINLYNSEY, [facility] [id number] Univers 10:30:00 10:30:00 CRICKET ity o f [facility] 2019-11-27 2019-11-27 Outpatient R DEYVI [facility] [id number] Univers 11:00:00 11:00:00 TETO ity [facility] 2019-11-26 2019-11-26 Patient Doctor [place] 1.2.840.114 [id number] Univers 00:00:00 00:00:00 Secure Msg Unassigned, YAZMIN 350.1.13.10 ity of [facility] 4.2.7.2.686 [place] as [phone] [address] 2019-11-25 2019-11-25 Outpatient R DEYVI, [facility] [id number] Univers 08:00:00 08:00:00 TETO [facility] 2019-11-23 2019-11-23 Patient Doctor [facility] [[email or web address]] 1.2.840.114 [id number] Univers 00:00:00 00:00:00 Secure Msg Unassigned, [place] 350.1.13.10 ity of [place] [facility] 4.2.7.2.[place] [phone] Nj dical [address] 2019-11-18 2019-11-18 Outpatient R DEYVI, [facility] [id number] Univers 10:00:00 10:00:00 TETO ankush [facility] 2019-11-17 2019-11-17 Patient Doctor [facility] [[email or web address]] 1.2.840.114 [id number] Univers 00:00:00 00:00:00 Secure Msg Unassigned, [place] 350.1.13.10 ity of [place]2.7.2.[place] [phone] Nj dic[address] 2019-11-13 2019-11-13 Patient Prasanna Vargas [facility] [[email or web address]] [id number] Univers 00:00:00 00:00:00 Secure Msg Cam [place] 350.1.13.10 ity of [facility] 4.2.7.2.[place] [phone] Nj dical [address] 2019-09-02 2019-09-02 Outpatient R BRANDON, [facility] [id number] Univers 11:00:00 11:00:00 CRICKET lechuga o f [facility] 2019-08-14 2019-08-14 Outpatient R DEYVI [facility] [id number] Univers 10:15:00 10:15:00 TETO lechuga [facility] 2019-08-13 2019-08-13 Outpatient R BRANDON, [facility] [id number] Univers 11:00:00 11:00:00 CRICKET ity o f [facility] 2019-08-12 2019-08-12 Outpatient R [facility] [id number] Univers 09:00:00 09:00:00 [facility] 2019-07-20 2019-07-20 Outpatient P PRASANNA VARGAS [facility] [[email or web address]] CHRIS [id number] Univers 16:06:00 16:06:00 ity of [facility] 2019-07-20 2019-07-20 Outpatient R AKINSIPE, [facility] [id number] Univers 08:15:00 08:15:00 CRICKET ity o f [facility] 2019-07-13 2019-07-13 Outpatient R AKINSIPE, [facility] [id number] Univers 08:00:00 08:00:00 CRICKET ity o f [facility] 2019-07-12 2019-07-12 Outpatient P PRASANNA VARGAS [facility] [[email or web address]] CHRIS [id number] Univers 13:39:00 13:39:00 [facility] 2019-07-06 2019-07-06 Outpatient R AKINSIPE, [facility] [id number] Univers 13:00:00 13:00:00 CRICKET ity o f [facility] 2019-06-13 2019-06-13 Emergency X YARIMA, [facility] [[email or web address]] ERT [id number] Univers 10:40:46 12:35:00 WAKILI [facility] 2019-05-13 2019-05-14 Outpatient P PRASANNA VARGAS [facility] [[email or web address]] CHRIS [id number] Univers 23:07:00 09:15:00 [facility] Results Test Description Test Time Test Comments [...] 34.0 g/dL 31.6-35.1 RDW-SD (test code = 12042-6) 40.3 fL 39.0-49.9 RDW-CV (test code = 788-0) 13.1 % 12.0-15.5 PLT (test code = 777-3) 307 See_Comment [Au tomated message] The system which [employer] nerated this result transmit renata reference range: 166 - 35 8 10*3/?L. The reference range was not used to interpret th is result as normal/abnormal . MPV (test code = 03168-1) 11.0 fL 9.5-12.9 NRBC/100 WBC (test code = 0.0 See_Comment [ Automated message] The 4459136164) system which [employer] nerated this result transmit renata reference range: 0.0 - 10 .0 /100 WBCs. The reference r david was not used to interpr et this result as normal/abnor mal. NRBC x10^3 (test code = See_Comment [Au tomated message] The 5854222010) system which [employer] nerated this result transmit renata reference range: 10*3/?L. The reference range was not u sed to interpret this result as normal/abnormal . GRAN MAT (NEUT) % (test code 52.0 % = 770-8) IMM GRAN % (test code = 0.20 % 1395336450) LYMPH % (test code = 736-9) 38.0 % MONO % (test code = 5905-5) 4.6 % EOS % (test code = 713-8) 4.6 % BASO % (test code = 706-2) 0.6 % GRAN MAT x10^3(ANC) (test 2.84 10*3/uL 1.88-7.09 code = 8765309942) IMM GRAN x10^3 (test code = 0.00-0.06 4944874118) LYMPH x10^3 (test code = 2.07 10*3/uL 1.32-3.29 731-0) MONO x10^3 (test code = 0.25 10*3/uL 0.33-0.92 L 742-7) EOS x10^3 (test code = 0.25 10*3/uL 0.03-0.39 711-2) BASO x10^3 (test code = 0.03 10*3/uL 0.01-0.07 704-7) Lab Interpretation (test Abnormal code = 37436-2) [facility]. METABOLIC PANEL ([id number])2023-01-12 04:12:43 Test Item Value Reference Range Interpretation Comments NA (test code = 137 mmol/L 135-145 8095810321) K (test code = 3.4 mmol/L 3.5-5.0 L 9772286104) CL (test code = 104 mmol/L 98-108 8156496944) CO2 TOTAL (test code = 24 mmol/L 23-31 7041251540) AGAP (test code = 9 2-16 0439147762) BUN (test code = 2 mg/dL 7-23 L 7044288264) GLUCOSE (test code = 92 mg/dL 70-110 8912934072) CREATININE (test code = 0.80 mg/dL 0.50-1.04 4724540037) TOTAL BILI (test code = 0.4 mg/dL 0.1-1.4 7600194626) CALCIUM (test code = 8.4 mg/dL 8.6-10.6 L 9712537161) T PROTEIN (test code = 6.3 g/dL 6.3-8.2 7264939024) ALBUMIN (test code = 3.7 g/dL 3.5-5.0 5568073329) ALK PHOS (test code = 87 U/L 34-122 2862658362) ALTv (test code = 27 U/L 5-35 1742-6) AST(SGOT) (test code = 33 U/L 13-40 3277352565) eGFR (test code = 86.0 mL/min/1.73m2 0184243996) WESLEY (test code = WESLEY) Association of [...] tests). Lab Interpretation Abnormal (test code = 53503-3) [facility]. METABOLIC PANEL ([id number])2023-01-12 04:12:43 Test Item Value Reference Range Interpretation Comments NA (test code = 137 mmol/L 135-145 8459901443) K (test code = 3.4 mmol/L 3.5-5.0 L 6425629430) CL (test code = 104 mmol/L 98-108 0958068130) CO2 TOTAL (test code = 24 mmol/L 23-31 6179277192) AGAP (test code = 9 2-16 4388206190) BUN (test code = 2 mg/dL 7-23 L 4292295934) GLUCOSE (test code = 92 mg/dL 70-110 8560681252) CREATININE (test code = 0.80 mg/dL 0.50-1.04 3295272190) TOTAL BILI (test code = 0.4 mg/dL 0.1-1.6 2644644447) CALCIUM (test code = 8.4 mg/dL 8.6-10.6 L 5853807060) T PROTEIN (test code = 6.3 g/dL 6.3-8.2 5050035121) ALBUMIN (test code = 3.7 g/dL 3.5-5.0 7137403552) ALK PHOS (test code = 87 U/L 34-122 2420851542) ALTv (test code = 27 U/L 5-35 1742-6) AST(SGOT) (test code = 33 U/L 13-40 4572355663) eGFR (test code = 86.0 mL/min/1.73m2 3442081327) WESLEY (test code = WESLEY) Association of [...] tests). Lab Interpretation Abnormal (test code = 11927-3) [facility] (QUANTITATIVE)2023-01-12 04:07:04 BETA HCG<2.39Non- female and male patients: <5 mIU/mL01/11/2023 11:07 PM [facility] Gestational Age ?Range (mIU/mL) 1-10 ?Weeks ?49-82288841-35 Weeks ?56729-77500029-12 Weeks ?1593-79444219-17 Weeks ?1531-368187 Biotin has been reported to cause a negative bias, interpret results relative to patient's use of biotin. Gestational Age ?Range (mIU/mL) 1-10 ?Weeks ?68-90607517-96 Weeks ?77371-19134103-27 Weeks ?5537-49100246-74 Weeks ?1531-181229 Biotin has been reported to cause a negative bias, interpret results relativeto patient's use of biotin. Gestational Age ?Range (mIU/mL) 1-10 ?Weeks ?99-70982448-44 Weeks ?80033-98304009-55 Weeks ?4433-69245129-97 Weeks ?1531-664069 Biotin has been reported to cause a negative bias, interpret results relative to patient's use of biotin.[facility] (QUANTITATIVE)2023-01-12 04:07:04BETA HCG<2.39Non- female and male patients: <5 mIU/mL01/11/2023 11:07 PM [facility] Gestational Age ?Range (mIU/mL) 1-10 ?Weeks ?24-81684785-15 Weeks ?75521-87033681-38 Weeks ?5671-68998612-31 Weeks ?1531-625107 Biotin has been reported to cause a negative bias, interpret results relative to patient's use of biotin. Gestational Age ?Range (mIU/mL) 1-10 ?Weeks ?44-2567 4011-15 Weeks ?45082-68619255-02 Weeks ?3013-64572435-21 Weeks ?1531-217458 Biotin has been reported to cause a negative bias, interpret results relativeto patient's use of biotin. Gestational Age ?Range (mIU/mL) 1-10 ?Weeks ? 14-48484134-48 Weeks ?72495-23702854-05 Weeks ?9842-01245709-95 Weeks ?1531-257576 Biotin has been reported to cause a negative bias, interpret results relative to patient's use of biotin. [facility]58 Test Item Value Reference Range Interpretation Comments LIPASE (test code = 1743641043) 41 U/L 0-220 Lab Interpretation (test code = Normal 49021-3) [facility] 03:22:58 Test Item Value Reference Range Interpretation Comments LIPASE (test code = 5351224647) 41 U/L 0-220 Lab Interpretation (test code = Normal 27759-9) [facility] [id number] 03:02:00 Test Item Value Reference Range Interpretation Comments POCT PREG (test code = 1605) Negative On board controls acceptable with Yes C Line (test code = 3574) POCT PREG LOT # (test code = 3575) [id number] POCT PREG TEST DATE (test 05/15/2024 code = 3576) Lab Interpretation (test code = Normal 71504-8) [facility] [id number] 03:02:00 Test Item Value Reference Range Interpretation Comments POCT PREG (test code = 1605) Negative On board controls acceptable with Yes C Line (test code = 3574) POCT PREG LOT # (test code = 3575) [id number] POCT PREG TEST DATE (test 05/15/2024 code = 3576) Lab Interpretation (test code = Normal 08721-7) [facility], [id number] 00:23:34 Test Item Value Reference Range Interpretation Comments PREG SERUM (test code Negative = 7163569330) WESLEY (test code = WESLEY) Less than 10 IU/L. ?If low titer or ectopic is suspected, resubmit specimen in 48-72 hours. [facility]. METABOLIC PANEL (70395)2022-07-31 23:58:12 Test Item Value Reference Range Interpretation Comments NA (test code = 140 mmol/L 135-145 0553232927) K (test code = 3.6 mmol/L 3.5-5.0 7884743251) CL (test code = 106 mmol/L 98-108 3397723435) CO2 TOTAL (test code = 21 mmol/L 23-31 L 8209359033) AGAP (test code = 13 2-16 6462394919) BUN (test code = 8 mg/dL 7-23 8156366427) GLUCOSE (test code = 90 mg/dL 70-110 0863294667) CREATININE (test code = 0.90 mg/dL 0.50-1.04 0488417684) TOTAL BILI (test code = 0.5 mg/dL 0.1-1.7 3691655021) CALCIUM (test code = 9.0 mg/dL 8.6-10.6 7492954776) T PROTEIN (test code = 7.8 g/dL 6.3-8.2 4658368718) ALBUMIN (test code = 4.6 g/dL 3.5-5.0 9674779420) ALK PHOS (test code = 63 U/L 34-122 3479236034) ALTv (test code = 23 U/L 5-35 1742-6) AST(SGOT) (test code = 27 U/L 13-40 5496776210) eGFR (test code = 75.1 mL/min/1.73m2 1234452184) WESLEY (test code = WESLEY) Association of [...] tests). Lab Interpretation Abnormal (test code = 65147-3) [facility] 23:57:32 Test Item Value Reference Range Interpretation Comments LIPASE (test code = 1214477540) 55 U/L 0-220 Lab Interpretation (test code = Normal 86127-9) [facility] WITH [id number] 23:47:31 Test Item Value Reference Range Interpretation Comments WBC (test code = 5.64 See_Comment [Automated 1490-2) message] The sy stem which generated this [...] RDW-SD (test code = 42.5 fL 39.0-49.9 92424-0) RDW-CV (test code = 13.0 % 12.0-15.5 788-0) PLT (test code = 339 See_Comment [Automated 777-3) message] The sy stem which generated this result transmitted reference range : 166 - 358 10*3/ ?L. The reference r david was not used to interpret this result as normal/abnormal . MPV (test code = 9.4 fL 9.5-12.9 L 89242-1) NRBC/100 WBC (test 0.0 See_Comment [Automat ed code = 4502271740) message] The system which generated this result transmitted reference range : 0.0 - 10.0 /100 WBCs. The refer ence range was not u sed to interpret th is result as normal/abnormal . NRBC x10^3 (test code See_Comment [Auto mated = 3308864925) message] The s ystem which generated this result transmitted reference range : 10*3/?L. The reference range was not used to interpret this result as normal/abnormal . GRAN MAT (NEUT) % 51.2 % (test code = 770-8) IMM GRAN % (test code 0.20 % = 3166620349) LYMPH % (test code = 36.5 % 736-9) MONO % (test code = 5.7 % 5905-5) EOS % (test code = 5.9 % 713-8) BASO % (test code = 0.5 % 706-2) GRAN MAT x10^3(ANC) 2.89 10*3/uL 1.88-7.09 (test code = 6334443342) IMM GRAN x10^3 (test 0.00-0.06 code = 9792653710) LYMPH x10^3 (test code 2.06 10*3/uL 1.32-3.29 = 731-0) MONO x10^3 (test code 0.32 10*3/uL 0.33-0.92 L = 742-7) EOS x10^3 (test code = 0.33 10*3/uL 0.03-0.39 711-2) BASO x10^3 (test code 0.03 10*3/uL 0.01-0.07 = 704-7) Lab Interpretation Abnormal (test code = 60466-4) [facility] [id number] 16:14:38 Test Item Value Reference Range Interpretation Comments POCT Molecular Strep (test code = Negative Negative 01152-7) Lab Interpretation (test code = Normal 32917-5) [facility]. METABOLIC PANEL (19727)2022-05-05 19:35:37 Test Item Value Reference Range Interpretation Comments NA (test code = 139 mmol/L 135-145 6933999709) K (test code = 4.4 mmol/L 3.5-5.0 9758954293) CL (test code = 104 mmol/L 98-108 1618826673) CO2 TOTAL (test code = 22 mmol/L 23-31 L 0739641370) AGAP (test code = 2-16 2542323825) BUN (test code = 11 mg/dL 7-23 9587756524) GLUCOSE (test code = 95 mg/dL 70-110 5604673710) CREATININE (test code = 0.71 mg/dL 0.50-1.04 1135440162) TOTAL BILI (test code = 0.4 mg/dL 0.1-1.2 0942027459) CALCIUM (test code = 9.1 mg/dL 8.6-10.6 2578260680) T PROTEIN (test code = 7.9 g/dL 6.3-8.2 9810384171) ALBUMIN (test code = 4.7 g/dL 3.5-5.0 6155781287) ALK PHOS (test code = 114 U/L 34-122 1712122665) ALTv (test code = 21 U/L 5-35 1742-6) AST(SGOT) (test code = 21 U/L 13-40 3317902456) eGFR (test code = mL/min/1.73m2 2442713440) WESLEY (test code = WESLEY) Association of [...] tests). Lab Interpretation Abnormal (test code = 11990-8) [facility] WITH [id number] 19:25:37 Test Item Value Reference Range Interpretation [...] RDW-SD (test code = 41.7 fL 39.0-49.9 35525-3) RDW-CV (test code = 12.7 % 12.0-15.5 788-0) PLT (test code = See_Comment H [Automated 777-3) message] The sy stem which generated this result transmitted reference range : 166 - 358 10*3/ ?L. The reference r david was not used to interpret this result as normal/abnormal . MPV (test code = 8.8 fL 9.5-12.9 L 56412-8) NRBC/100 WBC (test See_Comment [Automat ed code = 9779097835) message] The system which generated this result transmitted reference range : 0.0 - 10.0 /100 WBCs. The refer ence range was not u sed to interpret th is result as normal/abnormal . NRBC x10^3 (test code See_Comment [Auto mated = 9253713490) message] The s ystem which generated this result transmitted reference range : 10*3/?L. The reference range was not used to interpret this result as normal/abnormal . GRAN MAT (NEUT) % 56.1 % (test code = 770-8) IMM GRAN % (test code 0.40 % = 2305666680) LYMPH % (test code = 29.9 % 736-9) MONO % (test code = 5.4 % 5905-5) EOS % (test code = 7.8 % 713-8) BASO % (test code = 0.4 % 706-2) GRAN MAT x10^3(ANC) 3.75 10*3/uL 1.88-7.09 (test code = 7364187805) IMM GRAN x10^3 (test 0.03 10*3/uL 0.00-0.06 code = 0828043570) LYMPH x10^3 (test code 2.00 10*3/uL 1.32-3.29 = 731-0) MONO x10^3 (test code 0.36 10*3/uL 0.33-0.92 = 742-7) EOS x10^3 (test code = 0.52 10*3/uL 0.03-0.39 H 711-2) BASO x10^3 (test code 0.03 10*3/uL 0.01-0.07 = 704-7) Lab Interpretation Abnormal (test code = 31021-6) [facility] [id number] 19:00:00 Test Item Value Reference Range Interpretation Comments POCT PREG (test code = 1605) negative On board controls acceptable with present C Line (test code = 3574) POCT PREG LOT # (test code = 3575) [id number] POCT PREG TEST DATE (test 08-11-2023 code = 3576) Lab Interpretation (test code = Normal 81845-7) [facility] WITH [id number] 15:21:11 Test Item Value Reference Range Interpretation Comments WBC (test code = See_Comment [Automated 8811-2) message] The sy stem which generated this result transmitted reference range : 4.30 - 11.10 10*3/?L. The reference range was not used to interpret this result as normal/abnormal . RBC (test code = See_Comment [Automated 816-7) message] The sy stem which generated this [...] RDW-SD (test code = 42.6 fL 39.0-49.9 10973-0) RDW-CV (test code = 12.9 % 12.0-15.5 788-0) PLT (test code = See_Comment H [Automated 777-3) message] The sy stem which generated this result transmitted reference range : 166 - 358 10*3/ ?L. The reference r david was not used to interpret this result as normal/abnormal . MPV (test code = 9.1 fL 9.5-12.9 L 22606-4) NRBC/100 WBC (test See_Comment [Automat ed code = 9082936095) message] The system which generated this result transmitted reference range : 0.0 - 10.0 /100 WBCs. The refer ence range was not u sed to interpret th is result as normal/abnormal . NRBC x10^3 (test code See_Comment [Auto mated = 2501453454) message] The s ystem which generated this result transmitted reference range : 10*3/?L. The reference range was not used to interpret this result as normal/abnormal . GRAN MAT (NEUT) % 56.8 % (test code = 770-8) IMM GRAN % (test code 0.30 % = 2163308654) LYMPH % (test code = 29.5 % 736-9) MONO % (test code = 4.3 % 5905-5) EOS % (test code = 8.3 % 713-8) BASO % (test code = 0.8 % 706-2) GRAN MAT x10^3(ANC) 3.57 10*3/uL 1.88-7.09 (test code = 5700769379) IMM GRAN x10^3 (test 0.00-0.06 code = 3788250358) LYMPH x10^3 (test code 1.85 10*3/uL 1.32-3.29 = 731-0) MONO x10^3 (test code 0.27 10*3/uL 0.33-0.92 L = 742-7) EOS x10^3 (test code = 0.52 10*3/uL 0.03-0.39 H 711-2) BASO x10^3 (test code 0.05 10*3/uL 0.01-0.07 = 704-7) Lab Interpretation Abnormal (test code = 19656-7) [facility]. METABOLIC PANEL (34367)2022-04-26 15:12:13 Test Item Value Reference Range Interpretation Comments NA (test code = 141 mmol/L 135-145 7305947186) K (test code = 3.4 mmol/L 3.5-5.0 L 2730502203) CL (test code = 104 mmol/L 98-108 7903770953) CO2 TOTAL (test code = 23 mmol/L 23-31 8860059481) AGAP (test code = 2-16 0580897043) BUN (test code = 9 mg/dL 7-23 2047306669) GLUCOSE (test code = 101 mg/dL 70-110 2176327147) CREATININE (test code = 0.82 mg/dL 0.50-1.04 5697268588) TOTAL BILI (test code = 0.7 mg/dL 0.1-1.2 3700455766) CALCIUM (test code = 9.3 mg/dL 8.6-10.6 0825749523) T PROTEIN (test code = 8.1 g/dL 6.3-8.2 4371050392) ALBUMIN (test code = 4.7 g/dL 3.5-5.0 5207618461) ALK PHOS (test code = 108 U/L 34-122 4013971914) ALTv (test code = 24 U/L 5-35 1742-6) AST(SGOT) (test code = 49 U/L 13-40 H 5603355528) eGFR (test code = mL/min/1.73m2 8152235580) WESLEY (test code = WESLEY) Association of [...] tests). Lab Interpretation Abnormal (test code = 10092-3) [facility] [id number] 14:45:00 Test Item Value Reference Range Interpretation Comments POCT PREG (test code = 1605) negative On board controls acceptable with present C Line (test code = 3574) POCT PREG LOT # (test code = 3575) [id number] POCT PREG TEST DATE (test 08/11/2023 code = 3576) Lab Interpretation (test code = Normal 47652-2) [facility] [id number] 01:22:00 Test Item Value Reference Range Interpretation Comments POCT PREG (test code = 1605) Negative On board controls acceptable with Present C Line (test code = 3574) POCT PREG LOT # (test code = 3575) [id number] POCT PREG TEST DATE (test 08-11-2023 code = 3576) Lab Interpretation (test code = Normal 81587-3) [facility] METABOLIC PANEL (NA, K, CL, CO2, GLUCOSE, BUN, CREATININE, CA)2022-04-07 23:01:10 Test Item Value Reference Range Interpretation Comments NA (test code = 138 mmol/L 135-145 9295348202) K (test code = 4.3 mmol/L 3.5-5.0 9624547734) CL (test code = 107 mmol/L 98-108 0899938667) CO2 TOTAL (test code = 20 mmol/L 23-31 L 4402238861) AGAP (test code = 2-16 9480281208) BUN (test code = 9 mg/dL 7-23 0069821060) GLUCOSE (test code = 204 mg/dL 70-110 H 5273241381) CREATININE (test code = 0.74 mg/dL 0.50-1.04 7981739936) CALCIUM (test code = 9.1 mg/dL 8.6-10.6 9879059826) eGFR (test code = mL/min/1.73m2 6081708283) WESLEY (test code = WESLEY) Association of [...] tests). Lab Interpretation Abnormal (test code = 33436-9) [facility] WITH [id number] 22:57:34 Test Item Value Reference Range Interpretation [...] RDW-SD (test code = 42.9 fL 39.0-49.9 39066-2) RDW-CV (test code = 13.4 % 12.0-15.5 788-0) PLT (test code = See_Comment H [Automated 777-3) message] The sy stem which generated this result transmitted reference range : 166 - 358 10*3/ ?L. The reference r david was not used to interpret this result as normal/abnormal . MPV (test code = 8.9 fL 9.5-12.9 L 48328-7) NRBC/100 WBC (test See_Comment [Automat ed code = 3362047689) message] The system which generated this result transmitted reference range : 0.0 - 10.0 /100 WBCs. The refer ence range was not u sed to interpret th is result as normal/abnormal . NRBC x10^3 (test code See_Comment [Auto mated = 7576432873) message] The s ystem which generated this result transmitted reference range : 10*3/?L. The reference range was not used to interpret this result as normal/abnormal . GRAN MAT (NEUT) % 88.7 % (test code = 770-8) IMM GRAN % (test code 0.70 % = 9429399565) LYMPH % (test code = 9.4 % 736-9) MONO % (test code = 0.9 % 5905-5) EOS % (test code = 0.1 % 713-8) BASO % (test code = 0.2 % 706-2) GRAN MAT x10^3(ANC) 7.81 10*3/uL 1.88-7.09 H (test code = 6109163802) IMM GRAN x10^3 (test 0.06 10*3/uL 0.00-0.06 code = 0977087416) LYMPH x10^3 (test code 0.83 10*3/uL 1.32-3.29 L = 731-0) MONO x10^3 (test code 0.08 10*3/uL 0.33-0.92 L = 742-7) EOS x10^3 (test code = 0.03-0.39 L 711-2) BASO x10^3 (test code 0.01-0.07 = 704-7) Lab Interpretation Abnormal (test code = 45627-9) [facility] [id number] 14:07:00 Test Item Value Reference Range Interpretation Comments POCT PREG (test code = 1605) negative On board controls acceptable with present C Line (test code = 3574) POCT PREG LOT # (test code = 3575) [id number] POCT PREG TEST DATE (test 08/11/2023 code = 3576) Lab Interpretation (test code = Normal 34909-1) [facility] [id number] 13:52:00 Test Item Value Reference Range Interpretation Comments POCT PREG (test code = 1605) negative On board controls acceptable with C present Line (test code = 3574) Lab Interpretation (test code = Normal 05010-5) [facility] [id number] 14:59:00 Test Item Value Reference Range Interpretation Comments POCT PREG (test code = 1605) negative On board controls acceptable with yes C Line (test code = 3574) POCT PREG LOT # (test code = 3575) [id number] POCT PREG TEST DATE (test 07/11/2023 code = 3576) Lab Interpretation (test code = Normal 31515-9) [facility] METABOLIC PANEL (12331)2022 17:51:43 Test Item Value Reference Range Interpretation Comments NA (test code = 139 mmol/L 135-145 3965890234) K (test code = 4.1 mmol/L 3.5-5 7394696703) CL (test code = 104 mmol/L 98-108 4393281970) CO2 TOTAL (test code = 22 mmol/L 23-31 L 1408032690) AGAP (test code = 2-16 4616250174) BUN (test code = 7 mg/dL 7-23 6690287496) GLUCOSE (test code = 114 mg/dL 70-110 H 7114057952) CREATININE (test code = 0.69 mg/dL 0.5-1.04 9479356802) TOTAL BILI (test code = 0.4 mg/dL 0.1-1.1 8591510771) CALCIUM (test code = 9.7 mg/dL 8.6-10.6 1306665682) T PROTEIN (test code = 7.2 g/dL 6.3-8.2 7546273390) ALBUMIN (test code = 4.6 g/dL 3.5-5 1371220764) ALK PHOS (test code = 65 U/L 34-122 8273163133) ALTv (test code = 15 U/L 5-35 1742-6) AST(SGOT) (test code = 19 U/L 13-40 8976191006) eGFR (test code = mL/min/1.73m2 4943813538) WESLEY (test code = WESLEY) Association of [...] tests). Lab Interpretation Abnormal (test code = 88737-7) [facility] WITH [id number] 17:40:24 Test Item Value Reference Range Interpretation Comments WBC (test code = See_Comment [Automated 7996-2) message] The sy stem which generated this result transmitted reference range : 4.30 - 11.10 10*3/?L. The reference range was not used to interpret this result as normal/abnormal . RBC (test code = See_Comment [Automated 523-8) message] The sy stem which generated this [...] RDW-SD (test code = 43.1 fL 39-49.9 70326-2) RDW-CV (test code = 13.2 % 12-15.5 788-0) PLT (test code = See_Comment [Automated 777-3) message] The sy stem which generated this result transmitted reference range : 166 - 358 10*3/ ?L. The reference r david was not used to interpret this result as normal/abnormal . MPV (test code = 9.5 fL 9.5-12.9 33242-7) NRBC/100 WBC (test See_Comment [Automat ed code = 7574366213) message] The system which generated this result transmitted reference range : 0.0 - 10.0 /100 WBCs. The refer ence range was not u sed to interpret th is result as normal/abnormal . NRBC x10^3 (test code See_Comment [Auto mated = 3315853976) message] The s ystem which generated this result transmitted reference range : 10*3/?L. The reference range was not used to interpret this result as normal/abnormal . GRAN MAT (NEUT) % 57.8 % (test code = 770-8) IMM GRAN % (test code 0.20 % = 3722264293) LYMPH % (test code = 30.8 % 736-9) MONO % (test code = 5.1 % 5905-5) EOS % (test code = 5.6 % 713-8) BASO % (test code = 0.5 % 706-2) GRAN MAT x10^3(ANC) 3.61 10*3/uL 1.88-7.09 (test code = 1195962490) IMM GRAN x10^3 (test 0-0.06 code = 2851779700) LYMPH x10^3 (test code 1.92 10*3/uL 1.32-3.29 = 731-0) MONO x10^3 (test code 0.32 10*3/uL 0.33-0.92 L = 742-7) EOS x10^3 (test code = 0.35 10*3/uL 0.03-0.39 711-2) BASO x10^3 (test code 0.03 10*3/uL 0.01-0.07 = 704-7) Lab Interpretation Abnormal (test code = 31077-9) [facility] [id number] 17:27:00 Test Item Value Reference Range Interpretation Comments POCT PREG (test code = 1605) negative On board controls acceptable with present C Line (test code = 3574) POCT PREG LOT # (test code = 3575) [id number] POCT PREG TEST DATE (test code = 3576) Lab Interpretation (test code = Normal 84084-8) [facility] 12:45:21 Test Item Value Reference Range Interpretation Comments LIPASE (test code = 2535772699) 41 U/L 0-220 Lab Interpretation (test code = Normal 74691-7) [facility] [id number] 10:57:00 Test Item Value Reference Range Interpretation Comments POCT PREG (test code = 1605) Negative On board controls acceptable with Present C Line (test code = 3574) POCT PREG LOT # (test code = 3575) [id number] POCT PREG TEST DATE (test 03/12/2023 code = 3576) Lab Interpretation (test code = Normal 62489-8) [facility] (NA, K, CL, CO2, GLUCOSE, BUN, CREATININE, CA)2022-01-18 10:56:51 Test Item Value Reference Range Interpretation Comments NA (test code = 137 mmol/L 135-145 6109818788) K (test code = 4.6 mmol/L 3.5-5 Slight 2344798795) hemolysis CL (test code = 108 mmol/L 98-108 6056056493) CO2 TOTAL (test code 22 mmol/L 23-31 L = 7336733093) AGAP (test code = 2-16 5314740745) BUN (test code = 11 mg/dL 7-23 Slight 8053206708) hemolysis GLUCOSE (test code = 83 mg/dL 70-110 8475967764) CREATININE (test code 0.68 mg/dL 0.5-1.04 = 5575905977) CALCIUM (test code = 8.8 mg/dL 8.6-10.6 3556304519) eGFR (test code = mL/min/1.73m2 6240433970) WESLEY (test code = WESLEY) Association of [...] tests). Lab Interpretation Abnormal (test code = 07440-1) [facility] (66315[facility] (ALB,T.PRO,BILI T,BU/BC,ALT,AST,ALK PHOS)2022-01-18 10:56:51 Test Item Value Reference Range Interpretation Comments TOTAL BILI (test code = 2254144224) 0.6 mg/dL 0.1-1.1 BILI UNCON (test code = 6811028860) 0.1 mg/dL 0.1-1.1 BILI CONJ (test code = 9276371669) 0.0 mg/dL 0-0.3 T PROTEIN (test code = 7615608497) 8.6 g/dL 6.3-8.2 H ALBUMIN (test code = 8870561589) 5.1 g/dL 3.5-5 H ALK PHOS (test code = 4572485637) 79 U/L 34-122 ALTv (test code = 1742-6) 117 U/L 5-35 H AST(SGOT) (test code = 6370612638) 163 U/L 13-40 H Lab Interpretation (test code = Abnormal 96418-2) [facility], [id number] 10:54:25 Test Item Value Reference Range Interpretation Comments PREG SERUM (test code Negative = 2362244099) WESLEY (test code = WESLEY) Less than 10 IU/L. ?If low titer or ectopic is suspected, resubmit specimen in 48-72 hours. [facility] WITH [id number] 10:40:49 Test Item Value Reference Range Interpretation Comments WBC (test code = See_Comment [Automated 2621-2) message] The sy stem which generated this result transmitted reference range : 4.30 - 11.10 10*3/?L. The reference range was not used to interpret this result as normal/abnormal . RBC (test code = See_Comment [Automated 800-8) message] The sy stem which generated this [...] RDW-SD (test code = 45.3 fL 39-49.9 41824-3) RDW-CV (test code = 14.5 % 12-15.5 788-0) PLT (test code = See_Comment [Automated 147-3) message] The sy stem which generated this result transmitted reference range : 166 - 358 10*3/ ?L. The reference r david was not used to interpret this result as normal/abnormal . MPV (test code = 9.5 fL 9.5-12.9 88403-9) NRBC/100 WBC (test See_Comment [Automat ed code = 7440485926) message] The system which generated this result transmitted reference range : 0.0 - 10.0 /100 WBCs. The refer ence range was not u sed to interpret th is result as normal/abnormal . NRBC x10^3 (test code See_Comment [Auto mated = 6304460316) message] The s ystem which generated this result transmitted reference range : 10*3/?L. The reference range was not used to interpret this result as normal/abnormal . GRAN MAT (NEUT) % 47.6 % (test code = 770-8) IMM GRAN % (test code 0.60 % = 1835074035) LYMPH % (test code = 39.9 % 736-9) MONO % (test code = 5.9 % 5905-5) EOS % (test code = 5.3 % 713-8) BASO % (test code = 0.7 % 706-2) GRAN MAT x10^3(ANC) 4.45 10*3/uL 1.88-7.09 (test code = 7429542140) IMM GRAN x10^3 (test 0.06 10*3/uL 0-0.06 code = 4534004824) LYMPH x10^3 (test code 3.74 10*3/uL 1.32-3.29 H = 731-0) MONO x10^3 (test code 0.55 10*3/uL 0.33-0.92 = 742-7) EOS x10^3 (test code = 0.50 10*3/uL 0.03-0.39 H 711-2) BASO x10^3 (test code 0.07 10*3/uL 0.01-0.07 = 704-7) Lab Interpretation Abnormal (test code = 58333-2) [facility] [id number] 18:31:00 Test Item Value Reference Range Interpretation Comments POCT PREG (test code = 1605) Negative On board controls acceptable with C Yes Line (test code = 3574) POCT PREG LOT # (test code = 3575) POCT PREG TEST DATE (test code = 3576) [facility] W/O SPECIFIC [id number] 18:31:00 Test Item Value Reference Range Interpretation [...] Negative - Negative [facility] Consult Notes Date/Time Note Provider Source 2023-01-12 00:12:43 [id number]:12:43Associated Order(s): [facility] CONSULT GENERAL SURGERY TRAUMA/ACS Surgery Consult [...] symptomatic cholelithiasis 1.5 months ago at OSH ([facility]). Pt states that she has had persistent RUQ pain with nausea and po intolerance along with intermittent chills and vomiting since surgery. Was seen by PCP and instructed to come to [email or web address] ED for further evaluation. Review of Systems:(BOLDED [...] N/A 07/21/2019 Surgeon: Prasanna Vargas MD; Location: [facility] OR Location TUBAL LIGATION N/A 07/21/2019 Surgeon: Prasanna Vargas MD; Location: [facility] OR Location Family History:Family [...] skin once every month. 1 mL 3 Qrpitavxki-Rtaomrilzopov-Fvkx (FIORICET) 50-300-40 mg per capsule Take 1 [...] symptomatic cholelithiasis 1.5 months ago at OSH ([facility]).Plan:Admission to [facility] serviceConsult IR for percutaneous drainage of gallbladder [...] pain, nausea, anorexia since lap pasquale at [facility] on 12/01/22 with noted venous bleeding [...] Surgery, and Surgical Critical Care In-house Pager: [id number] [id number], Amy1.2.840.864575.1.13.104.2.7.2.236444Hps hdgRglDY2972-33-36K14:39:26Consult noteTXT1.2.840.936359.1.13.104.2.7.2.15613 9|[id number] for patient kbbd78037-0Febehjf noteLNUTMB[address] ReybVwzpkmlfzAoppolwsaHTIG7923319126QZUKCQ GHQIJAPEMLQHWOJB0522-28-41E96:39:261.2.840 .506849.1.72.3.15|1.2.840.106854.1.13.104. 2.7.2.727879_1889654271 History and Physical Notes Date/Time Note Provider Source 2023-01-12 01:05:04 [id number]:05:04Formatting of this note [facility] might be different from the original.01/12/23 1:05 AM Please refer to consult note written by Rodolfo Riggins DO on 01/12/23 for complete H&P.NITESH Gandara-2 Surgery Resident ssociated attestation - Mirella Vergara MD - 01/12/2023 1:47 AM CDT Swecq85704-1Ovzclce and physical ljiiYI5742863Tfhfuu, Amy1.2.840.839659.1.13.104.2.7.2.987823Pmr tirLvlEG3596-13-60C27:47:52History and physical noteTXT1.2.840.910165.1.13.104.2.7.2.28900 9|[id number] for patient lndh42030-2[place] and physical noteLN[address] Vi[id number] VHJSIPDXLNYFXHVE1461-75-79Y20:47:521.2.840 .846347.1.72.3.15|1.2.840.956609.1.13.104. 2.7.2.727879_1889658330
[2023-03-09 10:36] LABS: Specific Gravity 1.015 (1.005-1.030)
[2023-03-09] MEDS ORDERED: HYDROCODONE/APAP 5/325 MG TAB ONE ×2 (10:38)
--- NOTE | 2023-03-09 11:28 | RAD REPORT ---
EXAM DESCRIPTION: RAD - Ribs Right - 03/09/2023 11:21 am CLINICAL HISTORY: Trauma;Rib Pain - Right COMPARISON: Chest Pa And Lat (2 Views) dated 01/02/2023 FINDINGS/IMPRESSION: No displaced right-sided rib fractures identified. Nondisplaced rib fractures m ay not be apparent on radiography until healing begins. No pneumothorax. The lungs are clear.
--- NOTE | 2023-03-09 11:28 | RAD REPORT ---
EXAM DESCRIPTION: RAD - Sacrum And Coccyx - 03/09/2023 11:21 am CLINICAL HISTORY: PAIN COMPARISON: No comparisons FINDINGS/IMPRESSION: No acute fracture. No malalignment. No significant focal degenerative changes.
--- NOTE | 2023-03-09 11:28 | RAD REPORT ---
EXAM DESCRIPTION: RAD - Ankle Right 3 View - 03/09/2023 11:21 am CLINICAL HISTORY: PAIN COMPARISON: Ankle Right 3 View dated 05/24/2022 FINDINGS/IMPRESSION: No acute fracture. No malalignment. No significant focal degenerative changes.
--- NOTE | 2023-03-09 11:37 | ER ---
Nurse's Notes [facility] Name: Natanael Dyson Age: 28 yrs Sex: Female : 1995 Arrival Date: 03/09/2023 Time: 09:40 Bed 10 Private MD: Diagnosis: Fall on same level from slipping, tripping and stumbling without subsequent striking against object;Sprain of ankle;Sprain of ribs;Contusion of coccyx Presentation: 03/09 10:08 Chief complaint: Slipped while walking dog this morning, c/o tailbone and right chest hb wall pain 10/10. Coronavirus screen: At this time, the client does not indicate any symptoms associated with coronavirus-19. Ebola Screen: No symptoms or risks identified at this time. Initial Sepsis Screen: Does the patient meet any 2 criteria? No. Patient's initial sepsis screen is negative. Does the patient have a suspected source of infection? No. Patient's initial sepsis screen is negative. Risk Assessment: Do you want to hurt yourself or someone else? Patient reports no desire to harm self or others. Onset of symptoms was March 09, 2023. 10:08 Method Of Arrival: Ambulatory hb 10:08 Acuity: THIERNO 4 hb Historical: - Allergies: 10:09 Compazine; hb 10:09 Haldol; hb 10:09 Reglan; hb 10:09 Toradol; hb - PMHx: 10:09 Anxiety; depressive disorder; Kidney stone; hb - PSHx: 10:09 Cholecystectomy; Ligation of fallopian tube; hb - Immunization history:: Adult Immunizations up to date. - Social history:: Smoking status: . Vital Signs: 10:08 BP 121 / 108; Pulse 112; Resp 16; Temp 97.4(TE); Pulse Ox 100% on R/A; Weight 58.97 kg; hb Height 5 ft. 1 in. ; Pain 10/10; 10:08 Body Mass Index 24.56 (58.97 kg, 154.94 cm) hb 10:08 Pain Scale: Adult hb ED Course: 09:44 Patient arrived in ED. mg5 09:50 Tamika Worthington PA-C is PHCP. sb4 09:50 Diaz Arizmendi MD is Attending Physician. sb4 10:09 Triage completed. hb 10:10 Arm band placed on. hb 10:23 Matty Bee, RN is Primary Nurse. jl7 10:29 Urine collected: clean catch specimen, clear. jl7 10:30 Provided Education on: use of call [place]. jl7 10:30 Patient has correct armband on for positive identification. jl7 11:23 Ribs Right XRAY In Process Unspecified. EDMS 11:23 Sacrum And Coccyx XRAY In Process Unspecified. EDMS 11:23 Ankle Right 3 View XRAY In Process Unspecified. EDMS 12:02 Crutch training done. Klaus wrap to right ankle Air stirrup applied to right ankle. em1 12:03 No provider procedures requiring assistance completed. Patient did not have IV access jl7 during this emergency room visit. Administered Medications: 10:26 Drug: HYDROcodone-acetaminophen PO 5 mg-325 mg 2 tabs PO once Route: PO; jl7 11:00 Follow up: Response: No adverse reaction jl7 Outcome: 11:36 Discharge ordered by MD. sb4 12:03 Discharged to home ambulatory, jl7 12:03 Condition: stable 12:03 Discharge instructions given to patient, Instructed on discharge instructions, follow up and referral plans. medication usage, crutch walking, Demonstrated understanding of instructions, follow-up care, medications, Prescriptions given X 1, 12:03 Patient left the ED. jl7 Signatures: Dispatcher [employer] Cliff Lopez em1 Judi Rich, RN RN Matty Alfredo, RN RN jl7 Tamika Worthington, PA-Jessica PA-C sb4 Lashanda Fitch mg5
--- NOTE | 2023-03-09 11:37 | EDPHYS ---
Physician Documentation [facility] Name: Natanael Dyson Age: 28 yrs Sex: Female : 1995 Arrival Date: 03/09/2023 Time: 09:40 Bed 10 Private MD: ED Physician Diaz Arizmendi HPI: 03/09 10:38 This 28 yrs old Female presents to ER via Ambulatory with complaints of Tail Bone Pain, sb4 Ankle Injury, Fall Injury. 10:38 patient states she was walking her dog when it pulled her, causing her to fall. she sb4 states she twisted her right ankle and fell on her tailbone and right rib cage. she is complaining of pain to all of those areas. no other associated signs and symptoms. pain worsened by any movement. Historical: - Allergies: 10:09 Compazine; hb 10:09 Haldol; hb 10:09 Reglan; hb 10:09 Toradol; hb - PMHx: 10:09 Anxiety; depressive disorder; Kidney stone; hb - PSHx: 10:09 Cholecystectomy; Ligation of fallopian tube; hb - Immunization history:: Adult Immunizations up to date. - Social history:: Smoking status: . ROS: 10:38 Constitutional: Negative for fever, chills, and weight loss, sb4 10:38 MS/extremity: Positive for right rib cage pain, tailbone pain, right ankle pain, Exam: 10:38 Constitutional: This is a well developed, well nourished patient who is awake, alert, sb4 and in no acute distress. Head/Face: Normocephalic, atraumatic. Eyes: Extra-ocular motions intact. Periorbital areas with no swelling, redness, or edema. ENT: Mucous membranes moist. Cardiovascular: Regular rate and rhythm with a normal S1 and S2. Respiratory: Lungs have equal breath sounds bilaterally, clear to auscultation and percussion. No rales, rhonchi or wheezes noted. No increased work of breathing, no retractions or nasal flaring. Abdomen/GI: Soft, non-tender, no distension. Skin: Warm, dry with normal turgor. Normal color with no rashes, no lesions, and no evidence of cellulitis. Neuro: Awake and alert, GCS 15, oriented to person, place, time, and situation. Motor strength 5/5 in all extremities. Sensory grossly intact. 10:38 Chest/axilla: Palpation: tenderness, that is mild, of the right lateral anterior chest, that partially reproduces the patient's complaints, 10:38 Musculoskeletal/extremity: ROM: limited active range of motion due to pain, limited passive range of motion due to pain, Circulation is intact in all extremities. Pulses: are normal with no appreciated deficits, Perfusion: the patient is normally perfused throughout, Perfusion: the extremity is normally perfused throughout, Sensation intact. Weight bearing: able to fully bear weight, Vital Signs: 10:08 BP 121 / 108; Pulse 112; Resp 16; Temp 97.4(TE); Pulse Ox 100% on R/A; Weight 58.97 kg; hb Height 5 ft. 1 in. ; Pain 10; 10:08 Body Mass Index 24.56 (58.97 kg, 154.94 cm) hb 10:08 Pain Scale: Adult hb MDM: 09:50 Patient medically screened. sb4 10:38 Differential diagnosis: fracture, contusion, sprain, strain. sb4 11:35 Data reviewed: vital signs, nurses notes, radiologic studies, and as a result, I will sb4 discharge patient. Counseling: I had a detailed discussion with the patient and/or guardian regarding the historical points, exam findings, and any diagnostic results supporting the discharge/admit diagnosis, radiology results, to return to the emergency department if symptoms worsen or persist or if there are any questions or concerns that arise at home. 03/09 10:19 Order name: Test, Urine; Complete Time: 10:38 sb4 03/09 10:19 Order name: Ribs Right XRAY; Complete Time: 11:29 sb4 03/09 10:19 Order name: Sacrum And Coccyx XRAY; Complete Time: 11:29 sb4 03/09 10:19 Order name: Ankle Right 3 View XRAY; Complete Time: 11:29 sb4 03/09 11:35 Order name: Aircast Ankle Splint; Complete Time: 12:02 sb4 03/09 11:35 Order name: Crutches; Complete Time: 11:58 sb4 Administered Medications: 10:26 Drug: HYDROcodone-acetaminophen PO 5 mg-325 mg 2 tabs PO once Route: PO; jl7 11:00 Follow up: Response: No adverse reaction jl7 Disposition Summary: 03/09/23 11:36 Discharge Ordered Notes: Location: Home sb4 Problem: new sb4 Symptoms: have improved sb4 Condition: Stable sb4 Diagnosis - Fall on same level from slipping, tripping and stumbling without subsequent sb4 striking against object - Sprain of ankle sb4 - Sprain of ribs sb4 - Contusion of coccyx sb4 Followup: sb4 - With: Emergency Department - When: As needed - Reason: Trouble breathing, Worsening of condition Discharge Instructions: - Discharge Summary Sheet sb4 - Rib Contusion sb4 - Ankle Sprain, [id number] sb4 - Tailbone Injury, [id number] sb4 Forms: - Medication Reconciliation Form sb4 - Thank You Letter sb4 - Antibiotic Education sb4 - Prescription Opioid Use sb4 - Patient Portal Instructions sb4 - Leadership Thank You Letter sb4 Prescriptions: - Tramadol 50 mg Oral Tablet - take 1 tablet ORAL route every 8 hours as needed; 12 tablet; Refills: 0, sb4 Product Selection Permitted Addendum: 03/10/2023 15:04 I was immediately available for consultation during this patient's visit. I did not e c2 personally see the patient or guide the patient's care.. Signatures: Dispatcher [employer] Judi Holland RN RN hb Leal, Jahala, RN RN Tamika Garcia PA-C PA-C sb4 Diaz Arizmendi MD MD ec2
[2023-03-09 12:07] VITALS: BP 121/108; TEMP 97.4; O2SAT 100
== END 2023-03-09 12:03 | disposition home or self-care (01) ==
LOC: ER 09:40
DX: S93.401A Sprain of unspecified ligament of right ankle, initial encounter (principal); S23.41XA Sprain of ribs, initial encounter; S30.0XXA Contusion of lower back and pelvis, initial encounter; W01.0XXA Fall on same level from slipping, tripping and stumbling without subsequent striking against object, initial encounter; Z88.1 Allergy status to other antibiotic agents; Z88.5 Allergy status to narcotic agent; Z88.8 Allergy status to other drugs, medicaments and biological substances
CPT/HCPCS: 72220; 81025; 99284

== ENCOUNTER 2023-03-24 09:47 | Emergency (ER) | payer OTHER, SELFPAY ==
--- OUTSIDE RECORDS SUMMARY | 2023-03-24 10:04 | XMS REPORT | Continuity of Care Document ---
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 2023-0 Yes [id number] 4mg Take 1 [facility] 4 mg 3-21 tablet by ity of disintegrat 00:00: mouth [place] ing tablet 00 every 8 Medica l (eight) Branch hours as needed for Nausea and Vomiting (N/V). sucralfate 2023-0 Yes [id number] 1g Take 1 [facility] nivers 1 gram 3-21 tablet by ity of tablet 00:00: mouth [place] 00 before Medical meals and Branch at bedtime. ondansetron 2023-0 Yes [id number] 4mg Take 1 [facility] 4 mg 3-21 tablet by ity of disintegrat 00:00: mouth [place] ing tablet 00 every 8 Medica l (eight) Branch hours as needed for Nausea and Vomiting (N/V). sucralfate 2023-0 Yes [id number] 1g Take 1 [facility] nivers 1 gram 3-21 tablet by ity of tablet 00:00: mouth [place] 00 before Medical meals and Branch at bedtime. ondansetron 2023-0 Yes [id number] 4mg Take 1 [facility] 4 mg 3-21 tablet by ity of disintegrat 00:00: mouth [place] ing tablet 00 every 8 Medica l (eight) Branch hours as needed for Nausea and Vomiting (N/V). sucralfate 2023-0 Yes [id number] 1g Take 1 [facility] nivers 1 gram 3-21 tablet by ity of tablet 00:00: mouth [place] 00 before Medical meals and Branch at bedtime. ondansetron 2023-0 Yes [id number] 4mg Take 1 [facility] 4 mg 3-21 tablet by ity of disintegrat 00:00: mouth [place] ing tablet 00 every 8 Medica l (eight) Branch hours as needed for Nausea and Vomiting (N/V). sucralfate 2023-0 Yes [id number] 1g Take 1 [facility] n[facility] 1 gram 3-21 tablet by ity of tablet 00:00: mouth [place] 00 before Medical meals and Branch at bedtime. ondansetron 2023-0 Yes [id number] 4mg Take 1 [facility] 4 mg 3-21 tablet by ity of disintegrat 00:00: mouth [place] ing tablet 00 every 8 Medica l (eight) Branch hours as needed for Nausea and Vomiting (N/V). sucralfate 2023-0 Yes [id number] 1g Take 1 [facility] nivers 1 gram 3-21 tablet by ity of tablet 00:00: mouth [place] 00 before Medical meals and Branch at bedtime. ondansetron 2023-0 Yes [id number] 4mg Take 1 [facility] 4 mg 3-21 tablet by ity of disintegrat 00:00: mouth [place] ing tablet 00 every 8 Medica l (eight) Branch hours as needed for Nausea and Vomiting (N/V). sucralfate 2023-0 Yes [id number] 1g Take 1 [facility] nivers 1 gram 3-21 tablet by ity of tablet 00:00: mouth [place] 00 before Medical meals and Branch at bedtime. ondansetron 2023-0 Yes [id number] 4mg Take 1 [facility] 4 mg 3-21 tablet by ity of disintegrat 00:00: mouth [place] ing tablet 00 every 8 Medica l (eight) Branch hours as needed for Nausea and Vomiting (N/V). sucralfate 2023-0 Yes [id number] 1g Take 1 [facility] n[facility] 1 gram 3-21 tablet by ity of tablet 00:00: mouth [place] 00 before Medical meals and Branch at bedtime. pantoprazol 2023-0 2023- No [id number] 40mg Take 1 [facility] e 40 mg EC 3-21 04-05 tablet by ity of tablet 00:00: 04:59 mouth in [place] 00 :00 the Medical morning Branch for 14 days. pantoprazol 2023-0 2023- No [id number] 40mg Take 1 [facility] e 40 mg EC 3-21 04-05 tablet by ity of tablet 00:00: 04:59 mouth in [place] 00 :00 the Medical morning Branch for [...] tablet by ity o f 00:00: mouth. [place] [facility] traMADoL 50 3-0 Yes 50mg Take 1 [facility] ers mg tablet 3-13 tablet by ity o f 00:00: mouth. [place] [facility] traMADoL 50 3-0 Yes 50mg Take 1 [facility] ers mg tablet 3-13 tablet by ity o f 00:00: mouth. [place] [facility] traMADoL 50 3-0 Yes 50mg Take 1 [facility] ers mg tablet 3-13 tablet by ity o f 00:00: mouth. [place] [facility] traMADoL 50 3-0 Yes 50mg Take 1 [facility] ers mg tablet 3-13 tablet by ity o f 00:00: mouth. [place] [facility] traMADoL 50 3-0 Yes 50mg Take 1 [facility] ers mg tablet 3-13 tablet by ity o f 00:00: mouth. [place] [facility] traMADoL 50 3-0 Yes 50mg Take 1 [facility] ers mg tablet 3-13 tablet by ity o f 00:00: mouth. [place] [facility] traMADoL 50 2023-0 Yes 50mg Take 1 [facility] ers mg tablet 3-13 tablet by ity o f 00:00: mouth. [place] [facility] traMADoL 50 2023-0 Yes 50mg Take 1 [facility] ers mg tablet 3-13 tablet by ity o f 00:00: mouth. [place] [facility] traMADoL 50 2023-0 Yes 50mg [...] 00:00: mouth. Medical Branch ibuprofen 3-0 Yes [id number] 600mg Take 1 [facility] 600 mg 3-05 [id number] tablet by ity of tablet 00:00: mouth [place] 00 every 6 Medical (six) Branch hours as needed for Pain (scale 4-6). ibuprofen 2022-0 Yes [id number] 600mg Take 1 [facility] 600 mg 3-05 [id number] tablet by ity of tablet 00:00: mouth [place] 00 every 6 Medical (six) Branch hours as needed for Pain (scale 4-6). ibuprofen 3-0 Yes [id number] 600mg Take 1 [facility] 600 mg 3-05 [id number] tablet by ity of tablet 00:00: mouth [place] 00 every 6 Medical (six) Branch hours as needed for Pain (scale 4-6). ibuprofen 3-0 2023- No [id number] 600mg Take 1 [facility] 600 mg 3-05 03-21 [id number] tablet by ity o f tablet 00:00: 00:00 mouth [place] 00 :00 every 6 Medical (six) Branch hours as needed for Pain (scale 4-6). citalopram 2022-0 Yes 10mg Take 1 [facility] rs 10 mg 2-17 tablet by ity of tablet 00:00: mouth in [place] 00 the Medical morning. Branch QUEtiapine 2023-0 Yes [facility] 400 mg 2-17 ity of tablet 00:00: [place] 00 Medical Branch gabapentin 2023-0 Yes [facility] 600 mg 2-17 ity of tablet 00:00: [place] 00 Medical Branch citalopram 2023-0 Yes 10mg Take 1 [facility] rs 10 mg 2-17 tablet by ity of tablet 00:00: mouth in [place] the Medical morning. Branch QUEtiapine 2023-0 Yes [facility] 400 mg 2-17 ity of tablet 00:00: [place] 00 Medical Branch gabapentin 2023-0 Yes [facility] 600 mg 2-17 ity of tablet 00:00: [place] 00 Medical Branch citalopram 2023-0 Yes 10mg Take 1 [facility] rs 10 mg 2-17 tablet by ity of tablet 00:00: mouth in [place] the Medical morning. Branch QUEtiapine 2023-0 Yes [facility] 400 mg 2-17 ity of tablet 00:00: [place] 00 Medical Branch gabapentin 2023-0 Yes [facility] 600 mg 2-17 ity of tablet 00:00: [place] 00 Medical Branch citalopram 2023-0 Yes 10mg Take 1 [facility] rs 10 mg 2-17 tablet by ity of tablet 00:00: mouth in [place] the Medical morning. Branch QUEtiapine 2023-0 Yes [facility] 400 mg 2-17 ity of tablet 00:00: [place] 00 Medical Branch gabapentin 2023-0 Yes [facility] 600 mg 2-17 ity of tablet 00:00: [place] [id number] Medical Branch citalopram 2023-0 Yes 10mg Take 1 [facility] rs 10 mg 2-17 tablet by ity of tablet 00:00: mouth in [place] the Medical morning. Branch QUEtiapine 2023-0 Yes [facility] 400 mg 2-17 ity of tablet 00:00: [place] 00 Medical Branch gabapentin 2023-0 Yes [facility] 600 mg 2-17 ity of tablet 00:00: [place] 00 Medical Branch citalopram 2023-0 Yes 10mg Take 1 [facility] rs 10 mg 2-17 tablet by ity of tablet 00:00: mouth in [place] the Medical morning. Branch QUEtiapine 2023-0 Yes [facility] 400 mg 2-17 ity of tablet 00:00: [place] 00 Medical Branch gabapentin 2023-0 Yes [facility] 600 mg 2-17 ity of tablet 00:00: [place] 00 Medical Branch citalopram 2023-0 Yes 10mg Take 1 [facility] rs 10 mg 2-17 tablet by ity of tablet 00:00: mouth in [place] the Medical morning. Branch QUEtiapine 2023-0 Yes [facility] 400 mg 2-17 ity of tablet 00:00: [place] 00 Medical Branch gabapentin 2023-0 Yes [facility] 600 mg 2-17 ity of tablet 00:00: [place] 00 Medical Branch citalopram 2023-0 Yes 10mg Take 1 [facility] rs 10 mg 2-17 tablet by ity of tablet 00:00: mouth in [place] the Medical morning. Branch QUEtiapine 2023-0 Yes [facility] 400 mg 2-17 ity of tablet 00:00: [place] 00 Medical Branch gabapentin 2023-0 Yes [facility] 600 mg 2-17 ity of tablet 00:00: [place] 00 Medical Branch citalopram 2023-0 Yes 10mg Take 1 [facility] rs 10 mg 2-17 tablet by ity of tablet 00:00: mouth in [place] the Medical morning. Branch QUEtiapine 2023-0 Yes [facility] 400 mg 2-17 ity of tablet 00:00: [place] 00 Medical Branch gabapentin 2023-0 Yes [facility] 600 mg 2-17 ity of tablet 00:00: [place] 00 Medical Branch citalopram 2023-0 Yes 10mg Take 1 [facility] rs 10 mg 2-17 tablet by ity of tablet 00:00: mouth in [place] the Medical morning. Branch QUEtiapine 2023-0 Yes [facility] 400 mg 2-17 ity of tablet 00:00: [place] 00 Medical Branch gabapentin 2023-0 Yes [facility] 600 mg 2-17 ity of tablet 00:00: [place] 00 Medical Branch citalopram 2023-0 Yes 10mg Take 1 [facility] rs 10 mg 2-17 tablet by ity of tablet 00:00: mouth in [place] the Medical morning. Branch QUEtiapine 2023-0 Yes [facility] 400 mg 2-17 ity of tablet 00:00: [place] 00 Medical Branch gabapentin 2023-0 Yes [facility] 600 mg 2-17 ity of tablet 00:00: [place] [id number] Medical Branch citalopram 2023-0 Yes 10mg Take 1 [facility] rs 10 mg 2-17 tablet by ity of tablet 00:00: mouth in [place] the Medical morning. Branch QUEtiapine 2023-0 Yes [facility] 400 mg 2-17 ity of tablet 00:00: [place] 00 Medical Branch gabapentin 2023-0 Yes [facility] 600 mg 2-17 ity of tablet 00:00: [place] 00 Medical Branch citalopram 2023-0 Yes 10mg Take 1 [facility] rs 10 mg 2-17 tablet by ity of tablet 00:00: mouth in [place] the Medical morning. Branch QUEtiapine 2023-0 Yes [facility] 400 mg 2-17 ity of tablet 00:00: [place] 00 Medical Branch gabapentin 2023-0 Yes [facility] 600 mg 2-17 ity of tablet 00:00: [place] 00 Medical Branch citalopram 2023-0 Yes 10mg Take 1 [facility] rs 10 mg 2-17 tablet by ity of tablet 00:00: mouth in [place] the Medical morning. Branch QUEtiapine 3-0 Yes [facility] 400 mg 2-17 ity of tablet 00:00: [place] 00 Medical Branch gabapentin 2023-0 Yes [facility] 600 mg 2-17 ity of tablet 00:00: [place] [address] Medical Branch citalopram 2023-0 Yes 10mg Take 1 [facility] rs 10 mg 2-17 tablet by ity of tablet 00:00: mouth in [place] the Medical morning. Branch QUEtiapine 3-0 Yes [facility] 400 mg 2-17 ity of tablet 00:00: [place] 00 Medical Branch gabapentin 2023-0 Yes [facility] 600 mg 2-17 ity of tablet 00:00: [place] 00 Medical Branch citalopram 2023-0 Yes 10mg Take 1 [facility] rs 10 mg 2-17 tablet by ity of tablet 00:00: mouth in [place] the Medical morning. Branch QUEtiapine 2023-0 Yes [facility] 400 mg 2-17 ity of tablet 00:00: [place] 00 Medical Branch gabapentin 2023-0 Yes [facility] 600 mg 2-17 ity of tablet 00:00: [place] 00 Medical Branch methylPREDN 2023-0 Yes [id number] Take by [facility] ISolone 2-11 mouth ity of (MEDROL, 00:00: SEE-INSTRU [place],) 4 mg 00 CTIONS. Medica l tablets follow Branch package directions methylPREDN 2023-0 Yes [id number] Take by [facility] ISolone 2-11 mouth ity of (MEDROL, 00:00: SEE-INSTRU [place],) 4 mg 00 CTIONS. Medica l tablets follow Branch package directions methylPREDN 2023-0 Yes [id number] Take by [facility] ISolone 2-11 mouth ity of (MEDROL, 00:00: SEE-INSTRU [place],) 4 mg 00 CTIONS. Medica l tablets follow Branch package directions methylPREDN 2023-0 Yes [id number] Take by [facility] ISolone 2-11 mouth ity of (MEDROL, 00:00: SEE-INSTRU [place],) 4 mg 00 CTIONS. Medica l tablets follow Branch package directions methylPREDN 2023-0 Yes [id number] Take by [facility] ISolone 2-11 mouth ity of (MEDROL, 00:00: SEE-INSTRU [place],) 4 mg 00 CTIONS. Medica l tablets follow Branch package directions methylPREDN 2023-0 Yes [id number] Take by [facility] ISolone 2-11 mouth ity of (MEDROL, 00:00: SEE-INSTRU [place],) 4 mg 00 CTIONS. Medica l tablets follow Branch package directions methylPREDN 2023-0 Yes [id number] Take by [facility] ISolone 2-11 mouth ity of (MEDROL, 00:00: SEE-INSTRU [place],) 4 mg 00 CTIONS. Medica l tablets follow Branch package directions methylPREDN 2023-0 Yes [id number] Take by [facility] ISolone 2-11 mouth ity of (MEDROL, 00:00: SEE-INSTRU [place],) 4 mg 00 CTIONS. Medica l tablets follow Branch package directions methylPREDN 2023-0 Yes [id number] Take by [facility] ISolone 2-11 mouth ity of (MEDROL, 00:00: SEE-INSTRU [place],) 4 mg 00 CTIONS. Medica l tablets follow Branch package directions methylPREDN 2023-0 Yes [id number] Take by [facility] ISolone 2-11 mouth ity of (MEDROL, 00:00: SEE-INSTRU [place],) 4 mg 00 CTIONS. Medica l tablets follow Branch package directions methylPREDN 2023-0 Yes [id number] Take by [facility] ISolone 2-11 mouth ity of (MEDROL, 00:00: SEE-INSTRU [place],) 4 mg 00 CTIONS. Medica l tablets follow Branch package directions methylPREDN 2023-0 Yes [id number] Take by [facility] ISolone 06-23 mouth ity of (MEDROL, 00:00: SEE-INSTRU [place],) 4 mg 00 CTIONS. Medica l tablets follow Branch package directions methylPREDN 2022-0 Yes [id number] Take by [facility] ISolone 11 mouth ity of (MEDROL, 00:00: SEE-INSTRU [place],) 4 mg 00 CTIONS. Medica l tablets follow Branch package directions methylPREDN 2022-0 Yes [id number] Take by [facility] ISolone 11 mouth ity of (MEDROL, 00:00: SEE-INSTRU [place],) 4 mg 00 CTIONS. Medica l tablets follow Branch package directions bromphenira 2022- No [id number] 5mL Take 5 mL [facility] mine-pseudo 06-23 by mouth 4 i ty of ephedrine-D 00:00: 05:59 (four) [place] (BROMFED 00 :00 times Medical DM) 2-10 daily as Bran ch mg/5 mL needed for syrup Cold symptoms for up to 10 days. methocarbam 2022- No [id number] 750mg Take 1 [facility] oL 750 mg 06-23 [id number] tablet by it y of tablet 00:00: [...] [place] butalbital- 2021-05- No 1{tbl} 1 tablet, [facility] acetaminoph 07-06 Oral, ity of [...] 05/05/22 at 1315, Routine butalbital- 2021-05 Yes [id number] 1{tbl} Take 1 [facility] acetaminoph 2-24 tablet by ity of en-caff 00:00: mouth [place] 50-325-40 00 every 4 Medical mg tablet (four) Branch hours as needed for Pain (scale 7-10). butalbital- 2021-05 Yes [id number] 1{tbl} Take 1 [facility] acetaminoph 2-24 tablet by ity of en-caff 00:00: mouth [place] 50-325-40 00 every 4 Medical mg tablet (four) Branch hours as needed for Pain (scale 7-10). butalbital- 2021-05 Yes [id number] 1{tbl} Take 1 [facility] acetaminoph 2-24 tablet by ity of en-caff 00:00: mouth [place] 50-325-40 00 every 4 Medical mg tablet (four) Branch hours as needed for Pain (scale 7-10). butalbital- 2021-05 Yes [id number] 1{tbl} Take 1 [facility] acetaminoph 2-24 tablet by ity of en-caff 00:00: mouth [place] 50-325-40 00 every 4 Medical mg tablet (four) Branch hours as needed for Pain (scale 7-10). butalbital2021-05 Yes [id number] 1{tbl} Take 1 [facility] acetaminoph 2-24 tablet by ity of en-caff 00:00: mouth [place] 50-325-40 00 every 4 Medical mg tablet (four) Branch hours as needed for Pain (scale 7-10). butalbital2021-05 Yes [id number] 1{tbl} Take 1 [facility] acetaminoph 2-24 tablet by ity of en-caff 00:00: mouth [place] 50-325-40 00 every 4 Medical mg tablet (four) Branch hours as needed for Pain (scale 7-10). butalbital2021-05 Yes [id number] 1{tbl} Take 1 [facility] acetaminoph 2-24 tablet by ity of en-caff 00:00: mouth [place] 50-325-40 00 every 4 Medical mg tablet (four) Branch hours as needed for Pain (scale 7-10). butalbital2021-05 Yes [id number] 1{tbl} Take 1 [facility] acetaminoph 2-24 tablet by ity of en-caff 00:00: mouth [place] 50-325-40 00 every 4 Medical mg tablet (four) Branch hours as needed for Pain (scale 7-10). butalbital- 2021-05 Yes [id number] 1{tbl} Take 1 [facility] acetaminoph 2-24 tablet by ity of en-caff 00:00: mouth [place] 50-325-40 00 every 4 Medical mg tablet (four) Branch hours as needed for Pain (scale 7-10). butalbital- 2021-05 Yes [id number] 1{tbl} Take 1 [facility] acetaminoph 2-24 tablet by ity of en-caff 00:00: mouth [place] 50-325-40 00 every 4 Medical mg tablet (four) Branch hours as needed for Pain (scale 7-10). butalbital- 2021-05 Yes [id number] 1{tbl} Take 1 [facility] acetaminoph 2-24 tablet by ity of en-caff 00:00: mouth [place] 50-325-40 00 every 4 Medical mg tablet (four) Branch hours as needed for Pain (scale 7-10). butalbital- 2021-05 Yes [id number] 1{tbl} Take 1 [facility] acetaminoph 2-24 tablet by ity of en-caff 00:00: mouth [place] 50-325-40 00 every 4 Medical mg tablet (four) Branch hours as needed for Pain (scale 7-10). butalbital- 2021-05 Yes [id number] 1{tbl} Take 1 [facility] acetaminoph 2-24 tablet by ity of en-caff 00:00: mouth [place] 50-325-40 00 every 4 Medical mg tablet (four) Branch hours as needed for Pain (scale 7-10). butalbital- 2021-05 Yes [id number] 1{tbl} Take 1 [facility] acetaminoph 2-24 tablet by ity of en-caff 00:00: mouth [place] 50-325-40 00 every 4 Medical mg tablet (four) Branch hours as needed for Pain (scale 7-10). butalbital2021-05 Yes [id number] 1{tbl} Take 1 [facility] acetaminoph 2-24 tablet by ity of en-caff 00:00: mouth [place] 50-325-40 00 every 4 Medical mg tablet (four) Branch hours as needed for Pain (scale 7-10). butalbital2021-05 Yes [id number] 1{tbl} Take 1 [facility] acetaminoph 2-24 tablet [...] 04/26/22 at 0845, Routine cephALEXin 2021-05- No [id number] 500mg Take 1 [facility] (KEFLEX) 06-27 capsule [...] Nausea and Vomiting (N/V). galcanezuma 2021-05 Yes [id number] 120mg inject 120 [facility] b-gnlm 1-28 mg under ity of prefilled 00:00: [place] (EMGALITY[place] 00 once every Med ical subcutaneou month. Branch s injection galcanezuma 2021-05 Yes [id number] 120mg inject 120 [facility] b-gnlm 1-28 mg under ity of prefilled 00:00: [place] (EMGALITY) 00 once every Med ical subcutaneou month. Branch s injection galcanezuma 2021-05 Yes [id number] 120mg inject 120 [facility] b-gnlm 1-28 mg under ity of prefilled 00:00: [place] (EMGALITY) 00 once every Med ical subcutaneou month. Branch s injection galcanezuma 2021-05 Yes [id number] 120mg inject 120 [facility] b-gnlm 1-28 mg under ity of prefilled 00:00: [place] (EMGALITY) 00 once every Med ical subcutaneou month. Branch s injection galcanezuma 2021-05 Yes [id number] 120mg inject 120 [facility] b-gnlm 1-28 mg under ity of prefilled 00:00: [place] (EMGALITY) 00 once every Med ical subcutaneou month. Branch s injection galcanezuma 2021-05 Yes [id number] 120mg inject 120 [facility] b-gnlm 1-28 mg under ity of prefilled 00:00: [place] (EMGALITY) 00 once every Med ical subcutaneou month. Branch s injection galcanezuma 2021-05 Yes [id number] 120mg inject 120 [facility] b-gnlm 1-28 mg under ity of prefilled 00:00: the [place] (EMGALITY) 00 once every Med ical subcutaneou month. Branch s injection galcanezuma 2021-05 Yes [id number] 120mg inject 120 [facility] b-gnlm 1-28 mg under ity of prefilled 00:00: the [place] (EMGALITY) 00 once every Med ical subcutaneou month. Branch s injection galcanezuma 2021-05 Yes [id number] 120mg inject 120 [facility] b-gnlm 1-28 mg under ity of prefilled 00:00: [place] (EMGALITY) 00 once every Med ical subcutaneou month. Branch s injection galcanezuma 2021-05 Yes [id number] 120mg inject 120 [facility] b-gnlm 1-28 mg under ity of prefilled 00:00: the [place] (EMGALITY) 00 once every Med ical subcutaneou month. Branch s injection galcanezuma 2021-05 Yes [id number] 120mg inject 120 [facility] b-gnlm 1-28 mg under ity of prefilled 00:00: the [place] (EMGALITY) 00 once every Med ical subcutaneou month. Branch s injection galcanezuma 2021-05 Yes [id number] 120mg inject 120 [facility] b-gnlm 1-28 mg under ity of prefilled 00:00: the [place] (EMGALITY) 00 once every Med ical subcutaneou month. Branch s injection galcanezuma 2021-05 Yes [id number] 120mg inject 120 [facility] b-gnlm 1-28 mg under ity of prefilled 00:00: the [place] (EMGALITY) 00 once every Med ical subcutaneou month. Branch s injection galcanezuma 2021-05 Yes [id number] 120mg inject 120 [facility] b-gnlm 1-28 mg under ity of prefilled 00:00: the [place] (EMGALITY) 00 once every Med ical subcutaneou month. Branch s injection galcanezuma 2021-05 Yes [id number] 120mg inject 120 [facility] b-gnlm 1-28 mg under ity of prefilled 00:00: the [place] (EMGALITY) 00 once every Med ical subcutaneou month. Branch s injection galcanezuma 2021-05 Yes [id number] 120mg inject 120 [facility] b-gnlm 1-28 mg under ity of prefilled 00:00: the [place] (EMGALITY) 00 once every Med ical subcutaneou month. Branch s injection galcanezuma 2021-05 Yes [id number] 120mg inject 120 [facility] b-gnlm 1-28 mg under ity of prefilled 00:00: the [place] (EMGALITY) 00 once every Med ical subcutaneou month. Branch s injection galcanezuma 2021-05 Yes [id number] 120mg inject 120 [facility] b-gnlm 1-28 mg under ity of prefilled 00:00: the [place] (EMGALITY) 00 once every Med ical subcutaneou month. Branch s injection galcanezuma 2021-05 Yes [id number] 120mg inject 120 [facility] b-gnlm 1-28 mg under ity of prefilled 00:00: the [place] (EMGALITY) 00 once every Med ical subcutaneou month. Branch s injection galcanezuma 2021-05 Yes [id number] 120mg inject 120 [facility] b-gnlm 1-28 mg under ity of prefilled 00:00: the [place] (EMGALITY) 00 once every Med ical subcutaneou month. Branch s injection galcanezuma 2021-05 Yes [id number] 120mg inject 120 [facility] b-gnlm 1-28 mg under ity of prefilled 00:00: the [place] (EMGALITY) 00 once every Med ical subcutaneou month. Branch s injection galcanezuma 2021-05 Yes [id number] 120mg inject 120 [facility] b-gnlm 1-28 mg under ity of prefilled 00:00: the [place] (EMGALITY) 00 once every Med ical subcutaneou month. Branch s injection galcanezuma 2021-05 Yes [id number] 120mg inject 120 [facility] b-gnlm 1-28 mg under ity of prefilled 00:00: the [place] (EMGALITY) 00 once every Med ical subcutaneou month. Branch s injection galcanezuma 2021-05 Yes [id number] 120mg inject 120 [facility] b-gnlm 1-28 mg under ity of prefilled 00:00: the [place] (EMGALITY) 00 once every Med ical subcutaneou month. Branch s injection galcanezuma 2021-05 Yes [id number] 120mg inject 120 [facility] b-gnlm 1-28 mg under ity of prefilled 00:00: the [place] (EMGALITY) 00 once every Med ical subcutaneou month. Branch s injection galcanezuma 2021-05 Yes [id number] 120mg inject 120 [facility] b-gnlm 1-28 mg under ity of prefilled 00:00: the [place] (EMGALITY) 00 once every Med ical subcutaneou month. Branch s injection galcanezuma 2021-05 Yes [id number] 120mg inject 120 [facility] b-gnlm 1-28 mg under ity of prefilled 00:00: [place] (EMGALITY) 00 once every Med ical subcutaneou month. Branch s injection galcanezuma 2021-05 Yes [id number] 120mg inject 120 [facility] b-gnlm 1-28 mg under ity of prefilled 00:00: the [place] (EMGALITY) 00 once every Med ical subcutaneou month. Branch s injection galcanezuma 2021-05 Yes [id number] 120mg inject 120 [facility] b-gnlm 1-28 mg under ity of prefilled 00:00: the [place] (EMGALITY) 00 once every Med ical subcutaneou month. Branch s injection galcanezuma 2021-05 Yes [id number] 120mg inject 120 [facility] b-gnlm 1-28 mg under ity of prefilled 00:00: the [place] (EMGALITY) 00 once every Med ical subcutaneou month. Branch s injection galcanezuma 2021-05 Yes [id number] 120mg inject 120 [facility] b-gnlm 1-28 mg under ity of prefilled 00:00: [place] (EMGALITY) 00 once every Med ical subcutaneou month. Branch s injection galcanezuma 2021-05 Yes [id number] 120mg inject 120 [facility] b-gnlm 1-28 mg under ity of prefilled 00:00: the [place] (EMGALITY) 00 once every Med ical subcutaneou month. Branch s injection galcanezuma 2021-05 Yes [id number] 120mg inject 120 [facility] b-gnlm 1-28 mg under ity of prefilled 00:00: [place] (EMGALITY) 00 once every Med ical subcutaneou month. Branch s injection galcanezuma 2021-05 Yes [id number] 120mg inject 120 [facility] b-gnlm 1-28 mg [...] dose, On Medica l tablet 1 Sat [place] tablet 04/07/22 at 1830, Routine diphenhydrA 2021-05- [...] 13 :00 Medical Branch rizatriptan 2021-05 Yes [id number] 10mg Take 1 [facility] 10 mg 1-12 tablet by ity of tablet 00:00: mouth as [place] 00 needed for Medical Migraine. Branch May repeat in 2 hours if needed Butalbital- 2021-05 Yes [id number] 1{capsu Take 1 [facility] Acetaminoph 1-12 le} [...] daily. Indication s: headache rizatriptan 2021-05 Yes [id number] 10mg Take 1 [facility] 10 mg 1-12 tablet by ity of tablet 00:00: mouth as [place] 00 needed for Medical Migraine. Branch May repeat in 2 hours if needed Butalbital- 2021-05 Yes [id number] 1{capsu Take 1 [facility] Acet[facility] 1-12 le} [...] daily. Indication s: headache rizatriptan 2021-05 Yes [id number] 10mg Take 1 [facility] 10 mg 1-12 tablet by [facility] of tablet 00:00: mouth as [place] 00 needed for Medical Migraine. Branch May repeat in 2 hours if needed Butalbital- 2021-05 Yes [id number] 1{capsu Take 1 [facility] Acetamin[facility] 1-12 le} [...] daily. Indication s: headache rizatriptan 2021-05 Yes [id number] 10mg Take 1 [facility] 10 mg 1-12 tablet by [facility] of tablet 00:00: mouth as [place] 00 needed for Medical Migraine. Branch May repeat in 2 hours if needed Butalbital- 2021-05 Yes [id number] 1{capsu Take 1 [facility] Acetaminoph 1-12 le} capsule by it y of en-Caff 00:00: mouth [place] (FIORICET) 00 every 6 Medica l 50-300-40 (six) Branch mg per hours as capsule needed for Other (headache) . rizatriptan 2021-05 Yes [id number] 10mg Take 1 [facility] 10 mg 1-12 tablet by [facility]y of tablet 00:00: mouth as [place] 00 needed for Medical Migraine. Branch May repeat in 2 hours if needed Butalbital- 2021-05 Yes [id number] 1{capsu Take 1 [facility] Acetaminoph 1-12 le} capsule by it y of en-Caff 00:00: mouth [place] (FIORICET) 00 every 6 Medica l 50-300-40 (six) Branch mg per hours as capsule needed for Other (headache) . rizatriptan 2021-05 Yes [id number] 10mg Take 1 [facility] 10 mg 1-12 tablet by [facility]y of tablet 00:00: mouth as [place] 00 needed for Medical Migraine. Branch May repeat in 2 hours if needed Butalbital- 2021-05 Yes [id number] 1{capsu Take 1 [facility] Acetaminoph 1-12 le} capsule by it y of en-Caff 00:00: mouth [place] (FIORICET) 00 every 6 Medica l 50-300-40 (six) Branch mg per hours as capsule needed for Other (headache) . rizatriptan 2021-05 Yes [id number] 10mg Take 1 [facility] 10 mg 1-12 tablet by [facility]y of tablet 00:00: mouth as [place] 00 needed for Medical Migraine. Branch May repeat in 2 hours if needed Butalbital- 2021-05 Yes [id number] 1{capsu Take 1 [facility] Acetaminoph 1-12 le} capsule by it y of en-Caff 00:00: mouth [place] (FIORICET) 00 every 6 Medica l 50-300-40 (six) Branch mg per hours as capsule needed for Other (headache) . rizatriptan 2021-05 Yes [id number] 10mg Take 1 [facility] 10 mg 1-12 tablet by ity of tablet 00:00: mouth as [place] 00 needed for Medical Migraine. Branch May repeat in 2 hours if needed Butalbital- 2021-05 Yes [id number] 1{capsu Take 1 [facility] Acetaminoph 1-12 le} capsule by it y of en-Caff 00:00: mouth [place] (FIORICET) 00 every 6 Medica l 50-300-40 (six) Branch mg per hours as capsule needed for Other (headache) . rizatriptan 2021-05 Yes [id number] 10mg Take 1 [facility] 10 mg 1-12 tablet by [facility]y of tablet 00:00: mouth as [place] 00 needed for Medical Migraine. Branch May repeat in 2 hours if needed Butalbital- 2021-05 Yes [id number] 1{capsu Take 1 [facility] Acetaminoph 1-12 le} capsule by it y of en-Caff 00:00: mouth [place] (FIORICET) 00 every 6 Medica l 50-300-40 (six) Branch mg per hours as capsule needed for Other (headache) . rizatriptan 2021-05 Yes [id number] 10mg Take 1 [facility] 10 mg 1-12 tablet by ity of tablet 00:00: mouth as [place] 00 needed for Medical Migraine. Branch May repeat in 2 hours if needed Butalbital- 2021-05 Yes [id number] 1{capsu Take 1 [facility] Acetaminoph 1-12 le} capsule by it y of en-Caff 00:00: mouth [place] (FIORICET) 00 every 6 Medica l 50-300-40 (six) Branch mg per hours as capsule needed for Other (headache) . rizatriptan 2021-05 Yes [id number] 10mg Take 1 [facility] 10 mg 1-12 tablet by ity of tablet 00:00: mouth as [place] 00 needed for Medical Migraine. Branch May repeat in 2 hours if needed Butalbital- 2021-05 Yes [id number] 1{capsu Take 1 [facility] Acetaminoph 1-12 le} capsule by it y of en-Caff 00:00: mouth [place] (FIORICET) 00 every 6 Medica l 50-300-40 (six) Branch mg per hours as capsule needed for Other (headache) . rizatriptan 2021-05 Yes [id number] 10mg Take 1 [facility] 10 mg 1-12 tablet by ity of tablet 00:00: mouth as [place] 00 needed for Medical Migraine. Branch May repeat in 2 hours if needed Butalbital- 2021-05 Yes [id number] 1{capsu Take 1 [facility] Acetaminoph 1-12 le} capsule by it y of en-Caff 00:00: mouth [place] (FIORICET) 00 every 6 Medica l 50-300-40 (six) Branch mg per hours as capsule needed for Other (headache) . rizatriptan 2021-05 Yes [id number] 10mg Take 1 [facility] 10 mg 1-12 tablet by ity of tablet 00:00: mouth as [place] 00 needed for Medical Migraine. Branch May repeat in 2 hours if needed Butalbital- 2021-05 Yes [id number] 1{capsu Take 1 [facility] Acetaminoph 1-12 le} capsule by it y of en-Caff 00:00: mouth [place] (FIORICET) 00 every 6 Medica l 50-300-40 (six) Branch mg per hours as capsule needed for Other (headache) . rizatriptan 2021-05 Yes [id number] 10mg Take 1 [facility] 10 mg 1-12 tablet by ity of tablet 00:00: mouth as [place] 00 needed for Medical Migraine. Branch May repeat in 2 hours if needed Butalbital- 2021-05 Yes [id number] 1{capsu Take 1 [facility] Acetaminoph 1-12 le} capsule by it y of en-Caff 00:00: mouth [place] (FIORICET) 00 every 6 Medica l 50-300-40 (six) Branch mg per hours as capsule needed for Other (headache) . rizatriptan 2021-05 Yes [id number] 10mg Take 1 [facility] 10 mg 1-12 tablet by ity of tablet 00:00: mouth as [place] 00 needed for Medical Migraine. Branch May repeat in 2 hours if needed Butalbital- 2021-05 Yes [id number] 1{capsu Take 1 [facility] Acetaminoph 1-12 le} capsule by it y of en-Caff 00:00: mouth [place] (FIORICET) 00 every 6 Medica l 50-300-40 (six) Branch mg per hours as capsule needed for Other (headache) . rizatriptan 2021-05 Yes [id number] 10mg Take 1 [facility] 10 mg 1-12 tablet by ity of tablet 00:00: mouth as [place] 00 needed for Medical Migraine. Branch May repeat in 2 hours if needed Butalbital- 2021-05 Yes [id number] 1{capsu Take 1 [facility] Acetaminoph 1-12 le} capsule by it y of en-Caff 00:00: mouth [place] (FIORICET) 00 every 6 Medica l 50-300-40 (six) Branch mg per hours as capsule needed for Other (headache) . rizatriptan 2021-05 Yes [id number] 10mg Take 1 [facility] 10 mg 1-12 tablet by ity of tablet 00:00: mouth as [place] 00 needed for Medical Migraine. Branch May repeat in 2 hours if needed Butalbital- 2021-05 Yes [id number] 1{capsu Take 1 [facility] Acetaminoph 1-12 le} capsule by it y of en-Caff 00:00: mouth [place] (FIORICET) 00 every 6 Medica l 50-300-40 (six) Branch mg per hours as capsule needed for Other (headache) . rizatriptan 2021-05 Yes [id number] 10mg Take 1 [facility] 10 mg 1-12 tablet by ity of tablet 00:00: mouth as [place] 00 needed for Medical Migraine. Branch May repeat in 2 hours if needed Butalbital- 2021-05 Yes [id number] 1{capsu Take 1 [facility] Acetaminoph 1-12 le} capsule by it y of en-Caff 00:00: mouth [place] (FIORICET) 00 every 6 Medica l 50-300-40 (six) Branch mg per hours as capsule needed for Other (headache) . rizatriptan 2021-05 Yes [id number] 10mg Take 1 [facility] 10 mg 1-12 tablet by ity of tablet 00:00: mouth as [place] 00 needed for Medical Migraine. Branch May repeat in 2 hours if needed Butalbital- 2021-05 Yes [id number] 1{capsu Take 1 [facility] Acetaminoph 1-12 le} capsule by it y of en-Caff 00:00: mouth [place] (FIORICET) 00 every 6 Medica l 50-300-40 (six) Branch mg per hours as capsule needed for Other (headache) . rizatriptan 2021-05 Yes [id number] 10mg Take 1 [facility] 10 mg 1-12 tablet by ity of tablet 00:00: mouth as [place] 00 needed for Medical Migraine. Branch May repeat in 2 hours if needed Butalbital- 2021-05 Yes [id number] 1{capsu Take 1 [facility] Acetaminoph 1-12 le} capsule by it y of en-Caff 00:00: mouth [place] (FIORICET) 00 every 6 Medica l 50-300-40 (six) Branch mg per hours as capsule needed for Other (headache) . rizatriptan 2021-05 Yes [id number] 10mg Take 1 [facility] 10 mg 1-12 tablet by ity of tablet 00:00: mouth as [place] 00 needed for Medical Migraine. Branch May repeat in 2 hours if needed Butalbital- 2021-05 Yes [id number] 1{capsu Take 1 [facility] Acetaminoph 1-12 le} capsule by it y of en-Caff 00:00: mouth [place] (FIORICET) 00 every 6 Medica l 50-300-40 (six) Branch mg per hours as capsule needed for Other (headache) . rizatriptan 2021-05 Yes [id number] 10mg Take 1 [facility] 10 mg 1-12 tablet by ity of tablet 00:00: mouth as [place] 00 needed for Medical Migraine. Branch May repeat in 2 hours if needed Butalbital- 2021-05 Yes [id number] 1{capsu Take 1 [facility] Acetaminoph 1-12 le} capsule by it y of en-Caff 00:00: mouth [place] (FIORICET) 00 every 6 Medica l 50-300-40 (six) Branch mg per hours as capsule needed for Other (headache) . rizatriptan 2021-05 Yes [id number] 10mg Take 1 [facility] 10 mg 1-12 tablet by ity of tablet 00:00: mouth as [place] 00 needed for Medical Migraine. Branch May repeat in 2 hours if needed Butalbital- 2021-05 Yes [id number] 1{capsu Take 1 [facility] Acetaminoph 1-12 le} capsule by it y of en-Caff 00:00: mouth [place] (FIORICET) 00 every 6 Medica l 50-300-40 (six) Branch mg per hours as capsule needed for Other (headache) . rizatriptan 2021-05 Yes [id number] 10mg Take 1 [facility] 10 mg 1-12 tablet by ity of tablet 00:00: mouth as [place] 00 needed for Medical Migraine. Branch May repeat in 2 hours if needed Butalbital- 2021-05 Yes [id number] 1{capsu Take 1 [facility] Acetaminoph 1-12 le} capsule by it y of en-Caff 00:00: mouth [place] (FIORICET) 00 every 6 Medica l 50-300-40 (six) Branch mg per hours as capsule needed for Other (headache) . rizatriptan 2021-05 Yes [id number] 10mg Take 1 [facility] 10 mg 1-12 tablet by ity of tablet 00:00: mouth as [place] 00 needed for Medical Migraine. Branch May repeat in 2 hours if needed Butalbital- 2021-05 Yes [id number] 1{capsu Take 1 [facility] Acetaminoph 1-12 le} capsule by it y of en-Caff 00:00: mouth [place] (FIORICET) 00 every 6 Medica l 50-300-40 (six) Branch mg per hours as capsule needed for Other (headache) . rizatriptan 2021-05 Yes [id number] 10mg Take 1 [facility] 10 mg 1-12 tablet by ity of tablet 00:00: mouth as [place] 00 needed for Medical Migraine. Branch May repeat in 2 hours if needed Butalbital- 2021-05 Yes [id number] 1{capsu Take 1 [facility] Acetaminoph 1-12 le} capsule by it y of en-Caff 00:00: mouth [place] (FIORICET) 00 every 6 Medica l 50-300-40 (six) Branch mg per hours as capsule needed for Other (headache) . rizatriptan 2021-05 Yes [id number] 10mg Take 1 [facility] 10 mg 1-12 tablet by ity of tablet 00:00: mouth as [place] 00 needed for Medical Migraine. Branch May repeat in 2 hours if needed Butalbital- 2021-05 Yes [id number] 1{capsu Take 1 [facility] Acetaminoph 1-12 le} capsule by it y of en-Caff 00:00: mouth [place] (FIORICET) 00 every 6 Medica l 50-300-40 (six) Branch mg per hours as capsule needed for Other (headache) . rizatriptan 2021-05 Yes [id number] 10mg Take 1 [facility] 10 mg 1-12 tablet by ity of tablet 00:00: mouth as [place] 00 needed for Medical Migraine. Branch May repeat in 2 hours if needed Butalbital- 2021-05 Yes [id number] 1{capsu Take 1 [facility] Acetaminoph 1-12 le} capsule by it y of en-Caff 00:00: mouth [place] (FIORICET) 00 every 6 Medica l 50-300-40 (six) Branch mg per hours as capsule needed for Other (headache) . rizatriptan 2021-05 Yes [id number] 10mg Take 1 [facility] 10 mg 1-12 tablet by ity of tablet 00:00: mouth as [place] 00 needed for Medical Migraine. Branch May repeat in 2 hours if needed Butalbital- 2021-05 Yes [id number] 1{capsu Take 1 [facility] Acetaminoph 1-12 le} capsule by it y of en-Caff 00:00: mouth [place] (FIORICET) 00 every 6 Medica l 50-300-40 (six) Branch mg per hours as capsule needed for Other (headache) . rizatriptan 2021-05 Yes [id number] 10mg Take 1 [facility] 10 mg 1-12 tablet by ity of tablet 00:00: mouth as [place] 00 needed for Medical Migraine. Branch May repeat in 2 hours if needed Butalbital- 2021-05 Yes [id number] 1{capsu Take 1 [facility] Acetaminoph 1-12 le} capsule by it y of en-Caff 00:00: mouth [place] (FIORICET) 00 every 6 Medica l 50-300-40 (six) Branch mg per hours as capsule needed for Other (headache) . rizatriptan 2021-05 Yes [id number] 10mg Take 1 [facility] 10 mg 1-12 tablet by ity of tablet 00:00: mouth as [place] 00 needed for Medical Migraine. Branch May repeat in 2 hours if needed Butalbital- 2021-05 Yes [id number] 1{capsu Take 1 [facility] Acetaminoph 1-12 le} capsule by it y of en-Caff 00:00: mouth [place] (FIORICET) 00 every 6 Medica l 50-300-40 (six) Branch mg per hours as capsule needed for Other (headache) . rizatriptan 2021-05 Yes [id number] 10mg Take 1 [facility] 10 mg 1-12 tablet by ity of tablet 00:00: mouth as [place] 00 needed for Medical Migraine. Branch May repeat in 2 hours if needed Butalbital- 2021-05 Yes [id number] 1{capsu Take 1 [facility] Acetaminoph 1-12 le} capsule by it y of en-Caff 00:00: mouth [place] (FIORICET) 00 every 6 Medica l 50-300-40 (six) Branch mg per hours as capsule needed for Other (headache) . rizatriptan 2021-05 Yes [id number] 10mg Take 1 [facility] 10 mg 1-12 tablet by ity of tablet 00:00: mouth as [place] 00 needed for Medical Migraine. Branch May repeat in 2 hours if needed Butalbital- 2021-05 Yes [id number] 1{capsu Take 1 [facility] Acetaminoph 1-12 le} capsule by it y of en-Caff 00:00: mouth [place] (FIORICET) 00 every 6 Medica l 50-300-40 (six) Branch mg per hours as capsule needed for Other (headache) . rizatriptan 2021-05 Yes [id number] 10mg Take 1 [facility] 10 mg 1-12 tablet by ity of tablet 00:00: mouth as [place] 00 needed for Medical Migraine. Branch May repeat in 2 hours if needed Butalbital- 2021-05 Yes [id number] 1{capsu Take 1 [facility] Acetaminoph 1-12 le} capsule by it y of en-Caff 00:00: mouth [place] (FIORICET) 00 every 6 Medica l 50-300-40 (six) Branch mg per hours as capsule needed for Other (headache) . rizatriptan 2021-05 Yes [id number] 10mg Take 1 [facility] 10 mg 1-12 tablet by ity of tablet 00:00: mouth as [place] 00 needed for Medical Migraine. Branch May repeat in 2 hours if needed Butalbital- 2021-05 Yes [id number] 1{capsu Take 1 [facility] Acetaminoph 1-12 le} capsule by it y of en-Caff 00:00: mouth [place] (FIORICET) 00 every 6 Medica l 50-300-40 (six) Branch mg per hours as capsule needed for Other (headache) . rizatriptan 2021-05 Yes [id number] 10mg Take 1 [facility] 10 mg 1-12 tablet by ity of tablet 00:00: mouth as [place] 00 needed for Medical Migraine. Branch May repeat in 2 hours if needed Butalbital- 2021-05 Yes [id number] 1{capsu Take 1 [facility] Acetaminoph 1-12 le} capsule by it y of en-Caff 00:00: mouth [place] (FIORICET) 00 every 6 Medica l 50-300-40 (six) Branch mg per hours as capsule needed for Other (headache) . rizatriptan 2021-05 Yes [id number] 10mg Take 1 [facility] 10 mg 1-12 tablet by ity of tablet 00:00: mouth as [place] 00 needed for Medical Migraine. Branch May repeat in 2 hours if needed Butalbital- 2021-05 Yes [id number] 1{capsu Take 1 [facility] Acetaminoph 1-12 le} capsule by it y of en-Caff 00:00: mouth [place] (FIORICET) 00 every 6 Medica l 50-300-40 (six) Branch mg per hours as capsule needed for Other (headache) . rizatriptan 2021-05 Yes [id number] 10mg Take 1 [facility] 10 mg 1-12 tablet by ity of tablet 00:00: mouth as [place] 00 needed for Medical Migraine. Branch May repeat in 2 hours if needed Butalbital- 2021-05 Yes [id number] 1{capsu Take 1 [facility] Acetaminoph 1-12 le} capsule by it y of en-Caff 00:00: mouth [place] (FIORICET) 00 every 6 Medica l 50-300-40 (six) Branch mg per hours as capsule needed for Other (headache) . rizatriptan 2021-05 Yes [id number] 10mg Take 1 [facility] 10 mg 1-12 tablet by ity of tablet 00:00: mouth as [place] 00 needed for Medical Migraine. Branch May repeat in 2 hours if needed Butalbital- 2021-05 Yes [id number] 1{capsu Take 1 [facility] Acetaminoph 1-12 le} [...] ONCE, 1 Medical 50 mcg dose, On [facility] 03/15/22 at 1030, Routine proMETHazin 2021-05 No 25mg 25 mg, Uni vers e 05-15 Oral, ity of (PHENERGAN) 14:45: 14:55 ONCE, 1 [place] tablet 25 00 :00 dose, On Medica l mg [facility] 03/15/22 at 0945, [place] FENTanyl PF 2021-05 No 50ug 50 mcg, Un sushant (SUBLIMAZE 05-15 Slow IV ity o f (PF)) 14:45: 13:58 Push, [place] injection 00 :00 ONCE, 1 Medical 50 mcg dose, On [facility] 03/15/22 at 0945, Routine ondansetron 2021-05 No 4mg 4 mg, Slow [facility] (ZOFRAN 05-15 IV Push, ity of (PF)) 14:00: 13:58 ONCE, 1 [place] injection 4 00 :00 dose, On Medi yessi mg [facility] 03/15/22 at 0900, [place] ondansetron 2021-05 Yes [id number] 4mg Take 1 [facility] 4 mg 05-15 tablet by ity of disintegrat 00:00: mouth [place] ing tablet 00 every 8 Medica l (eight) [place] hours as needed for Nausea and Vomiting (N/V). ketorolac 2021-05 Yes [id number] 10mg Take 1 U nivers 10 mg 1-03 tablet by ity of tablet 00:00: mouth [place] 00 every 6 Medical (six) Branch hours as needed for Pain (scale 7-10). proMETHazin 2021-05 Yes [id number] 25mg Take 1 Univers e 25 mg 1-03 tablet by ity of tablet 00:00: mouth [place] 00 every 6 Medical (six) Branch hours as needed for N/V unresponsi ve to Ondansetro n. ondansetron 2021-05 Yes [id number] 4mg Take 1 [facility] 4 mg 1-03 tablet by ity of disintegrat 00:00: mouth [place] ing tablet 00 every 8 Medica l (eight) Branch hours as needed for Nausea and Vomiting (N/V). ketorolac 2021-05 Yes [id number] 10mg Take 1 U nivers 10 mg 1-03 tablet by ity of tablet 00:00: mouth [place] 00 every 6 Medical (six) Branch hours as needed for Pain (scale 7-10). proMETHazin 2021-05 Yes [id number] 25mg Take 1 Univers e 25 mg 1-03 tablet by ity of tablet 00:00: mouth [place] 00 every 6 Medical (six) Branch hours as needed for N/V unresponsi ve to Ondansetro n. carvediloL 2021-05 Yes [id number] 25mg Take 1 U nivers 25 mg 1-03 tablet by ity of tablet 00:00: mouth in [place] 00 the Medical morning Branch and 1 tablet in the evening. Take with meals. ondansetron 2021-05 Yes [id number] 4mg Take 1 [facility] 4 mg 1-03 tablet by ity of disintegrat 00:00: mouth [place] ing tablet 00 every 8 Medica l (eight) Branch hours as needed for Nausea and Vomiting (N/V). ketorolac 2021-05 Yes [id number] 10mg Take 1 U nivers 10 mg 1-03 tablet by ity of tablet 00:00: mouth [place] 00 every 6 Medical (six) Branch hours as needed for Pain (scale 7-10). proMETHazin 2021-05 Yes [id number] 25mg Take 1 Univers e 25 mg 1-03 tablet by ity of tablet 00:00: mouth [place] 00 every 6 Medical (six) Branch hours as needed for N/V unresponsi ve to Ondansetro n. carvediloL 2021-05 Yes [id number] 25mg Take 1 U nivers 25 mg 1-03 tablet by ity of tablet 00:00: mouth in [place] 00 the Medical morning Branch and 1 tablet in the evening. Take with meals. ondansetron 2021-05 Yes [id number] 4mg Take 1 [facility] 4 mg 1-03 tablet by ity of disintegrat 00:00: mouth [place] ing tablet 00 every 8 Medica l (eight) Branch hours as needed for Nausea and Vomiting (N/V). ketorolac 2021-05 Yes [id number] 10mg Take 1 U nivers 10 mg 1-03 tablet by ity of tablet 00:00: mouth [place] 00 every 6 Medical (six) Branch hours as needed for Pain (scale 7-10). proMETHazin 2021-05 Yes [id number] 25mg Take 1 Univers e 25 mg 1-03 tablet by ity of tablet 00:00: mouth [place] 00 every 6 Medical (six) Branch hours as needed for N/V unresponsi ve to Ondansetro n. carvediloL 2021-05 Yes [id number] 25mg Take 1 U nivers 25 mg 1-03 tablet by ity of tablet 00:00: mouth in [place] 00 the Medical morning Branch and 1 tablet in the evening. Take with meals. ondansetron 2021-05 Yes [id number] 4mg Take 1 [facility] 4 mg 1-03 tablet by ity of disintegrat 00:00: mouth [place] ing tablet 00 every 8 Medica l (eight) Branch hours as needed for Nausea and Vomiting (N/V). ketorolac 2021-05 Yes [id number] 10mg Take 1 U nivers 10 mg 1-03 tablet by ity of tablet 00:00: mouth [place] 00 every 6 Medical (six) Branch hours as needed for Pain (scale 7-10). proMETHazin 2021-05 Yes [id number] 25mg Take 1 Univers e 25 mg 1-03 tablet by ity of tablet 00:00: mouth [place] 00 every 6 Medical (six) Branch hours as needed for N/V unresponsi ve to Ondansetro n. carvediloL 2021-05 Yes [id number] 25mg Take 1 U nivers 25 mg 1-03 tablet by ity of tablet 00:00: mouth in [place] 00 the Medical morning Branch and 1 tablet in the evening. Take with meals. ondansetron 2021-05 Yes [id number] 4mg Take 1 [facility] 4 mg 1-03 tablet by ity of disintegrat 00:00: mouth [place] ing tablet 00 every 8 Medica l (eight) Branch hours as needed for Nausea and Vomiting (N/V). ketorolac 2021-05 Yes [id number] 10mg Take 1 U nivers 10 mg 1-03 tablet by ity of tablet 00:00: mouth [place] 00 every 6 Medical (six) Branch hours as needed for Pain (scale 7-10). proMETHazin 2021-05 Yes [id number] 25mg Take 1 Univers e 25 mg 1-03 tablet by ity of tablet 00:00: mouth [place] 00 every 6 Medical (six) Branch hours as needed for N/V unresponsi ve to Ondansetro n. carvediloL 2021-05 Yes [id number] 25mg Take 1 U nivers 25 mg 1-03 tablet by ity of tablet 00:00: mouth in [place] 00 the Medical morning Branch and 1 tablet in the evening. Take with meals. ondansetron 2021-05 Yes [id number] 4mg Take 1 [facility] 4 mg 1-03 tablet by ity of disintegrat 00:00: mouth [place] ing tablet 00 every 8 Medica l (eight) Branch hours as needed for Nausea and Vomiting (N/V). ketorolac 2021-05 Yes [id number] 10mg Take 1 U nivers 10 mg 1-03 tablet by ity of tablet 00:00: mouth [place] 00 every 6 Medical (six) Branch hours as needed for Pain (scale 7-10). proMETHazin 2021-05 Yes [id number] 25mg Take 1 Univers e 25 mg 1-03 tablet by ity of tablet 00:00: mouth [place] 00 every 6 Medical (six) Branch hours as needed for N/V unresponsi ve to Ondansetro n. carvediloL 2021-05 Yes [id number] 25mg Take 1 U nivers 25 mg 1-03 tablet by ity of tablet 00:00: mouth in [place] 00 the Medical morning Branch and 1 tablet in the evening. Take with meals. ondansetron 2021-05 Yes [id number] 4mg Take 1 [facility] 4 mg 1-03 tablet by ity of disintegrat 00:00: mouth [place] ing tablet 00 every 8 Medica l (eight) Branch hours as needed for Nausea and Vomiting (N/V). ketorolac 2021-05 Yes [id number] 10mg Take 1 U nivers 10 mg 1-03 tablet by ity of tablet 00:00: mouth [place] 00 every 6 Medical (six) Branch hours as needed for Pain (scale 7-10). proMETHazin 2021-05 Yes [id number] 25mg Take 1 Univers e 25 mg 1-03 tablet by ity of tablet 00:00: mouth [place] 00 every 6 Medical (six) Branch hours as needed for N/V unresponsi ve to Ondansetro n. carvediloL 2021-05 Yes [id number] 25mg Take 1 U nivers 25 mg 1-03 tablet by ity of tablet 00:00: mouth in [place] 00 the Medical morning Branch and 1 tablet in the evening. Take with meals. ondansetron 2021-05 Yes [id number] 4mg Take 1 [facility] 4 mg 1-03 tablet by ity of disintegrat 00:00: mouth [place] ing tablet 00 every 8 Medica l (eight) Branch hours as needed for Nausea and Vomiting (N/V). ketorolac 2021-05 Yes [id number] 10mg Take 1 U nivers 10 mg 1-03 tablet by ity of tablet 00:00: mouth [place] 00 every 6 Medical (six) Branch hours as needed for Pain (scale 7-10). proMETHazin 2021-05 Yes [id number] 25mg Take 1 Univers e 25 mg 1-03 tablet by ity of tablet 00:00: mouth [place] 00 every 6 Medical (six) Branch hours as needed for N/V unresponsi ve to Ondansetro n. carvediloL 2021-05 Yes [id number] 25mg Take 1 U nivers 25 mg 1-03 tablet by ity of tablet 00:00: mouth in [place] 00 the Medical morning Branch and 1 tablet in the evening. Take with meals. ondansetron 2021-05 Yes [id number] 4mg Take 1 [facility] 4 mg 1-03 tablet by ity of disintegrat 00:00: mouth [place] ing tablet 00 every 8 Medica l (eight) Branch hours as needed for Nausea and Vomiting (N/V). ketorolac 2021-05 Yes [id number] 10mg Take 1 U nivers 10 mg 1-03 tablet by ity of tablet 00:00: mouth [place] 00 every 6 Medical (six) Branch hours as needed for Pain (scale 7-10). proMETHazin 2021-05 Yes [id number] 25mg Take 1 Univers e 25 mg 1-03 tablet by ity of tablet 00:00: mouth [place] 00 every 6 Medical (six) Branch hours as needed for N/V unresponsi ve to Ondansetro n. carvediloL 2021-05 Yes [id number] 25mg Take 1 U nivers 25 mg 1-03 tablet by ity of tablet 00:00: mouth in [place] [address] the Medical morning Branch and 1 tablet in the evening. Take with meals. carvediloL 2021-05 Yes [id number] 25mg Take 1 U nivers 25 mg 1-03 tablet by ity of tablet 00:00: mouth in [place] [address] the Medical morning Branch and 1 tablet in the evening. Take with meals. carvediloL 2021-05 Yes [id number] 25mg Take 1 U nivers 25 mg 1-03 tablet by ity of tablet 00:00: mouth in [place] [address] the Medical morning Branch and 1 tablet in the evening. Take with meals. carvediloL 2021-05 Yes [id number] 25mg Take 1 U nivers 25 mg 1-03 tablet by ity of tablet 00:00: mouth in [place] 00 the Medical morning Branch and 1 tablet in the evening. Take with meals. carvediloL 2021-05 Yes [id number] 25mg Take 1 [facility] nivers 25 mg 1-03 tablet by ity of tablet 00:00: mouth in [place] [address] the Medical morning Branch and 1 tablet in the evening. Take with meals. carvediloL 2021-05 Yes [id number] 25mg Take 1 U nivers 25 mg 1-03 tablet by ity of tablet 00:00: mouth in [place] [address] the [facility] morning [place] and 1 tablet in the evening. Take with meals. carvediloL 2021-05 Yes [id number] 25mg Take 1 U nivers 25 mg 1-03 tablet by ity of tablet 00:00: mouth in [place] [address] the Medical morning [place] and 1 tablet in the evening. Take with meals. carvediloL 2021-05 Yes [id number] 25mg Take 1 U nivers 25 mg 1-03 tablet by ity of tablet 00:00: mouth in [place] [address] the Medical morning [place] and 1 tablet in the evening. Take with meals. carvediloL 2021-05 Yes [id number] 25mg Take 1 U nivers 25 mg 1-03 tablet by ity of tablet 00:00: mouth in [place] [address] the Medical morning [place] and 1 tablet in the evening. Take with meals. carvediloL 2021-05 Yes [id number] 25mg Take 1 U nivers 25 mg 1-03 tablet by ity of tablet 00:00: mouth in [place] [address] the Medical morning [place] and 1 tablet in the evening. Take with meals. carvediloL 2021-05 Yes [id number] 25mg Take 1 U nivers 25 mg 1-03 tablet by ity of tablet 00:00: mouth in [place] [address] the Medical morning [place] and 1 tablet in the evening. Take with meals. carvediloL 2021-05 Yes [id number] 25mg Take 1 U nivers 25 mg 1-03 tablet by ity of tablet 00:00: mouth in [place] [address] the [facility] morning [place] and 1 tablet in the evening. Take with meals. carvediloL 2021-05 Yes [id number] 25mg Take 1 U nivers 25 mg 1-03 tablet by ity of tablet 00:00: mouth in [place] [address] the Medical morning [place] and 1 tablet in the evening. Take with meals. carvediloL 2021-05 Yes [id number] 25mg Take 1 U nivers 25 mg 1-03 tablet by ity of tablet 00:00: mouth in [address] morning [place] and 1 tablet in the evening. Take with meals. carvediloL 2021-05 Yes [id number] 25mg Take 1 U nivers 25 mg 1-03 tablet by ity of tablet 00:00: mouth in [address] morning [place] and 1 tablet in the evening. Take with meals. carvediloL 2021-05 Yes [id number] 25mg Take 1 U nivers 25 mg 1-03 tablet by ity of tablet 00:00: mouth in [address] morning [place] and 1 tablet in the evening. Take with meals. carvediloL 2021-05 Yes [id number] 25mg Take 1 U nivers 25 mg 1-03 tablet by ity of tablet 00:00: mouth in [place] [address] the [facility] morning [place] and 1 tablet in the evening. Take with meals. carvediloL 2021-05 Yes [id number] 25mg Take 1 U nivers 25 mg 1-03 tablet by ity of tablet 00:00: mouth in [place] [address] the [facility] and 1 tablet in the evening. Take with meals. carvediloL 2021-05 Yes [id number] 25mg Take 1 U nivers 25 mg 1-03 tablet by ity of tablet 00:00: mouth in [place] [address] the [facility] and 1 tablet in the evening. Take with meals. carvediloL 2021-05 Yes [id number] 25mg Take 1 U nivers 25 mg 1-03 tablet by ity of tablet 00:00: mouth in [place] [address] the [facility] and 1 tablet in the evening. Take with meals. carvediloL 2021-05 Yes [id number] 25mg Take 1 U nivers 25 mg 1-03 tablet by ity of tablet 00:00: mouth in [address] and 1 tablet in the evening. Take with meals. carvediloL 2021-05 Yes [id number] 25mg Take 1 U nivers 25 mg 1-03 tablet by ity of tablet 00:00: mouth in [place] [address] the [facility] and 1 tablet in the evening. Take with meals. carvediloL 2021-05- No [id number] 25mg Take 1 [facility] 25 mg 1-03 04-26 tablet by ity of tablet 00:00: 00:00 mouth in [place] 00 :00 the [facility] and 1 tablet in the evening. Take with meals. carvediloL 2021-05- No [id number] 25mg Take 1 [facility] 25 mg 1-03 04-26 tablet by ity of tablet 00:00: 00:00 mouth in [place] 00 :00 the [facility] and 1 tablet in the evening. Take with meals. ondansetron 2021-05- No [id number] 4mg Take 1 [facility] 4 mg 1-03 11-26 tablet by ity of disintegrat 00:00: 00:[place] 00 :00 every 8 Medica l (eight) Branch hours as needed for Nausea and Vomiting (N/V). ketorolac 2021-05- No [id number] 10mg Take 1 [facility] 10 mg 05-15 tablet by ity of tablet 00:00: 00:00 mouth [place] 00 :00 every 6 Medical (six) Branch hours as needed for Pain (scale 7-10). proMETHazin 2021-05- No [id number] 25mg Take 1 [facility] e 25 mg 05-15 tablet by ity of tablet 00:00: 00:00 mouth [place] 00 :00 every 6 Medical (six) Branch hours as needed for N/V unresponsi ve to Ondansetro n. cephALEXin 2021-05- No [id number] 500mg Take 1 [facility] 500 mg 05-15 capsule by ity of capsule 00:00: 05:59 mouth 4 [place] 00 :00 (four) Medical times Branch daily for 3 days. cephALEXin 2021-05- No [id number] 500mg Take 1 [facility] 500 mg 05-15 capsule by ity of capsule 00:00: 05:59 mouth 4 [place] 00 :00 (four) Medical times Branch daily for 3 days. cephALEXin 2021-05- No [id number] 500mg Take 1 [facility] 500 mg 05-15 capsule by ity of capsule 00:00: 05:59 mouth 4 [place] 00 :00 (four) Medical times Branch daily for 3 days. predniSONE 2021-05- No [id number] 20mg Take 1 [facility] 20 mg 003-15 [...] piggyback at 0945, [place] proMETHazin 2021-05 Yes [id number] 25mg Take 1 [facility] e 25 mg 0-30 tablet by ity of tablet 00:00: mouth [place] 00 every 6 Medical (six) Branch hours as needed for Nausea and Vomiting (N/V). methocarbam 2021-05 Yes [id number] 500mg Take 1 [facility] oL 500 mg 0-30 tablet by ity o f tablet 00:00: mouth 3 (three) Medical times Branch daily as needed for Pain (scale 7-10). proMETHazin 2021-05 Yes [id number] 25mg Take 1 [facility] e 25 mg 0-30 tablet by ity of tablet 00:00: mouth [place] 00 every 6 Medical (six) Branch hours as needed for Nausea and Vomiting (N/V). methocarbam 2021-05 Yes [id number] 500mg Take 1 [facility] oL 500 mg 0-30 tablet by ity o f tablet 00:00: mouth 3 (three) Medical times Branch daily as needed for Pain (scale 7-10). proMETHazin 2021-05 Yes [id number] 25mg Take 1 [facility] e 25 mg 0-30 tablet by ity of tablet 00:00: mouth [place] 00 every 6 Medical (six) Branch hours as needed for Nausea and Vomiting (N/V). methocarbam 2021-05 Yes [id number] 500mg Take 1 [facility] oL 500 mg 0-30 tablet by ity o f tablet 00:00: mouth (three) Medical times Branch daily as needed for Pain (scale 7-10). proMETHazin 2021-05 Yes [id number] 25mg Take 1 [facility] e 25 mg 0-30 tablet by ity of tablet 00:00: mouth [place] 00 every 6 Medical (six) Branch hours as needed for Nausea and Vomiting (N/V). methocarbam 2021-05 Yes [id number] 500mg Take 1 [facility] oL 500 mg 0-30 tablet by ity o f tablet 00:00: mouth (three) Medical times Branch daily as needed for Pain (scale 7-10). proMETHazin 2021-05 Yes [id number] 25mg Take 1 [facility] e 25 mg 0-30 tablet by ity of tablet 00:00: mouth [place] 00 every 6 Medical (six) Branch hours as needed for Nausea and Vomiting (N/V). methocarbam 2021-05 Yes [id number] 500mg Take 1 [facility] oL 500 mg 0-30 tablet by ity o f tablet 00:00: mouth 3 (three) Medical times Branch daily as needed for Pain (scale 7-10). proMETHazin 2021-05 Yes [id number] 25mg Take 1 [facility] e 25 mg 0-30 tablet by ity of tablet 00:00: mouth [place] 00 every 6 Medical (six) Branch hours as needed for Nausea and Vomiting (N/V). methocarbam 2021-05 Yes [id number] 500mg Take 1 [facility] oL 500 mg 0-30 tablet by ity o f tablet 00:00: mouth 3 [place] 00 (three) Medical times Branch daily as needed for Pain (scale 7-10). proMETHazin 2021-05 Yes [id number] 25mg Take 1 [facility] e 25 mg 0-30 tablet by ity of tablet 00:00: mouth [place] 00 every 6 Medical (six) Branch hours as needed for Nausea and Vomiting (N/V). methocarbam 2021-05 Yes [id number] 500mg Take 1 [facility] oL 500 mg 0-30 tablet by ity o f tablet 00:00: mouth 3 [place] 00 (three) Medical times Branch daily as needed for Pain (scale 7-10). proMETHazin 2021-05 Yes [id number] 25mg Take 1 [facility] e 25 mg 0-30 tablet by ity of tablet 00:00: mouth [place] 00 every 6 Medical (six) Branch hours as needed for Nausea and Vomiting (N/V). methocarbam 2021-05 Yes [id number] 500mg Take 1 [facility] oL 500 mg 0-30 tablet by ity o f tablet 00:00: mouth 3 00 (three) Medical times Branch daily as needed for Pain (scale 7-10). proMETHazin 2021-05 Yes [id number] 25mg Take 1 [facility] e 25 mg 0-30 tablet by ity of tablet 00:00: mouth [place] 00 every 6 Medical (six) Branch hours as needed for Nausea and Vomiting (N/V). methocarbam 2021-05 Yes [id number] 500mg Take 1 [facility] oL 500 mg 0-30 tablet by ity o f tablet 00:00: mouth 3 [place] 00 (three) Medical times Branch daily as needed for Pain (scale 7-10). proMETHazin 2021-05 Yes [id number] 25mg Take 1 [facility] e 25 mg 0-30 tablet by ity of tablet 00:00: mouth [place] 00 every 6 Medical (six) Branch hours as needed for Nausea and Vomiting (N/V). methocarbam 2021-05 Yes [id number] 500mg Take 1 [facility] oL 500 mg 0-30 tablet by ity o f tablet 00:00: mouth 3 [place] 00 (three) Medical times Branch daily as needed for Pain (scale 7-10). proMETHazin 2021-05 Yes [id number] 25mg Take 1 [facility] e 25 mg 0-30 tablet by ity of tablet 00:00: mouth [place] 00 every 6 Medical (six) Branch hours as needed for Nausea and Vomiting (N/V). methocarbam 2021-05 Yes [id number] 500mg Take 1 [facility] oL 500 mg 0-30 tablet by ity o f tablet 00:00: mouth 3 [place] 00 (three) Medical times Branch daily as needed for Pain (scale 7-10). proMETHazin 2021-05 Yes [id number] 25mg Take 1 [facility] e 25 mg 0-30 tablet by ity of tablet 00:00: mouth [place] 00 every 6 Medical (six) Branch hours as needed for Nausea and Vomiting (N/V). proMETHazin 2021-05 Yes [id number] 25mg Take 1 [facility] e 25 mg 0-30 tablet by ity of tablet 00:00: mouth [place] 00 every 6 Medical (six) Branch hours as needed for Nausea and Vomiting (N/V). proMETHazin 2021-05 Yes [id number] 25mg Take 1 [facility] e 25 mg 0-30 tablet by ity of tablet 00:00: mouth [place] 00 every 6 Medical (six) Branch hours as needed for Nausea and Vomiting (N/V). proMETHazin 2021-05 Yes [id number] 25mg Take 1 [facility] e 25 mg 0-30 tablet by ity of tablet 00:00: mouth [place] 00 every 6 Medical (six) Branch hours as needed for Nausea and Vomiting (N/V). proMETHazin 2021-05 Yes [id number] 25mg Take 1 [facility] e 25 mg 0-30 tablet by ity of tablet 00:00: mouth [place] 00 every 6 Medical (six) Branch hours as needed for Nausea and Vomiting (N/V). proMETHazin 2021-05 Yes [id number] 25mg Take 1 [facility] e 25 mg 0-30 tablet by ity of tablet 00:00: mouth [place] 00 every 6 Medical (six) Branch hours as needed for Nausea and Vomiting (N/V). proMETHazin 2021-05 Yes [id number] 25mg Take 1 [facility] e 25 mg 0-30 tablet by ity of tablet 00:00: mouth [place] 00 every 6 Medical (six) Branch hours as needed for Nausea and Vomiting (N/V). proMETHazin 2021-05 Yes [id number] 25mg Take 1 [facility] e 25 mg 0-30 tablet by ity of tablet 00:00: mouth [place] 00 every 6 Medical (six) Branch hours as needed for Nausea and Vomiting (N/V). proMETHazin 2021-05 Yes [id number] 25mg Take 1 [facility] e 25 mg 0-30 tablet by ity of tablet 00:00: mouth [place] 00 every 6 Medical (six) Branch hours as needed for Nausea and Vomiting (N/V). proMETHazin 2021-05 Yes [id number] 25mg Take 1 [facility] e 25 mg 0-30 tablet by ity of tablet 00:00: mouth [place] 00 every 6 Medical (six) Branch hours as needed for Nausea and Vomiting (N/V). proMETHazin 2021-05 Yes [id number] 25mg Take 1 [facility] e 25 mg 0-30 tablet by ity of tablet 00:00: mouth [place] 00 every 6 Medical (six) Branch hours as needed for Nausea and Vomiting (N/V). proMETHazin 2021-05 Yes [id number] 25mg Take 1 [facility] e 25 mg 0-30 tablet by ity of tablet 00:00: mouth [place] 00 every 6 Medical (six) Branch hours as needed for Nausea and Vomiting (N/V). proMETHazin 2021-05 Yes [id number] 25mg Take 1 [facility] e 25 mg 0-30 tablet by ity of tablet 00:00: mouth [place] 00 every 6 Medical (six) Branch hours as needed for Nausea and Vomiting (N/V). proMETHazin 2021-05 Yes [id number] 25mg Take 1 [facility] e 25 mg 0-30 tablet by ity of tablet 00:00: mouth [place] 00 every 6 Medical (six) Branch hours as needed for Nausea and Vomiting (N/V). proMETHazin 2021-05 Yes [id number] 25mg Take 1 [facility] e 25 mg 0-30 tablet by ity of tablet 00:00: mouth [place] 00 every 6 Medical (six) Branch hours as needed for Nausea and Vomiting (N/V). proMETHazin 2021-05 Yes [id number] 25mg Take 1 [facility] e 25 mg 0-30 tablet by ity of tablet 00:00: mouth [place] 00 every 6 Medical (six) Branch hours as needed for Nausea and Vomiting (N/V). proMETHazin 2021-05 Yes [id number] 25mg Take 1 [facility] e 25 mg 0-30 tablet by ity of tablet 00:00: mouth [place] 00 every 6 Medical (six) Branch hours as needed for Nausea and Vomiting (N/V). proMETHazin 2021-05- No [id number] 25mg Take 1 [facility] e 25 mg 0-30 03-21 tablet by ity of tablet 00:00: 00:00 mouth [place] 00 :00 every 6 Medical (six) Branch hours as needed for Nausea and Vomiting (N/V). methocarbam 2021-05 No [id number] 500mg Take 1 [facility] oL 500 mg 0-30 11-26 tablet by ity of tablet 00:00: 00:00 mouth 3 [place] 00 :00 (three) Medical times Branch daily as needed for Pain (scale 7-10). topiramate 2021-05 Yes [id number] 100mg Take 4 [facility] 25 mg 0-21 tablets by ity of tablet 00:00: mouth in [place] 00 the Medical morning. [place] topiramate 2021-05 Yes [id number] 100mg Take 4 [facility] 25 mg 0-21 tablets by ity of tablet 00:00: mouth in [place] 00 the Medical morning. [place] topiramate 2021-05 Yes [id number] 100mg Take 4 [facility] 25 mg 0-21 tablets by ity of tablet 00:00: mouth in [place] 00 the Medical morning. [place] topiramate 2021-05 Yes [id number] 100mg Take 4 [facility] 25 mg 0-21 tablets by ity of tablet 00:00: mouth in [place] 00 the Medical morning. [place] topiramate 2021-05 Yes [id number] 100mg Take 4 [facility] 25 mg 0-21 tablets by ity of tablet 00:00: mouth in [place] 00 the Medical morning. [place] topiramate 2021-05 Yes [id number] 100mg Take 4 [facility] 25 mg 0-21 tablets by ity of tablet 00:00: mouth in [place] 00 the Medical morning. [place] topiramate 2021-05 Yes [id number] 100mg Take 4 [facility] 25 mg 0-21 tablets by ity of tablet 00:00: mouth in [place] 00 the Medical morning. Branch topiramate 2021-1 Yes [id number] 100mg Take 4 [facility] 25 mg 0-21 tablets by ity of tablet 00:00: mouth in [place] the Medical morning. Branch topiramate 2-1 Yes [id number] 100mg Take 4 [facility] 25 mg 0-21 tablets by ity of tablet 00:00: mouth in [place] the Medical morning. Branch topiramate 2-1 Yes [id number] 100mg Take 4 [facility] 25 mg 0-21 tablets by ity of tablet 00:00: mouth in [place] the Medical morning. Branch topiramate 2-1 Yes [id number] 100mg Take 4 [facility] 25 mg 0-21 tablets by ity of tablet 00:00: mouth in [place] the Medical morning. Branch topiramate 2-1 Yes [id number] 100mg Take 4 [facility] 25 mg 0-21 tablets by ity of tablet 00:00: mouth in [place] the Medical morning. Branch topiramate 2021-1 Yes [id number] 100mg Take 4 [facility] 25 mg 0-21 tablets by ity of tablet 00:00: mouth in [place] the Medical morning. Branch topiramate 2021-1 Yes [id number] 100mg Take 4 [facility] 25 mg 0-21 tablets by ity of tablet 00:00: mouth in [place] the Medical morning. Branch topiramate 2-1 Yes [id number] 100mg Take 4 [facility] 25 mg 0-21 tablets by ity of tablet 00:00: mouth in [place] the Medical morning. Branch topiramate 2-1 Yes [id number] 100mg Take 4 [facility] 25 mg 0-21 tablets by ity of tablet 00:00: mouth in [place] the Medical morning. Branch topiramate 2-1 Yes [id number] 100mg Take 4 [facility] 25 mg 0-21 tablets by ity of tablet 00:00: mouth in [place] the Medical morning. Branch topiramate 2022-1 Yes [id number] 100mg Take 4 [facility] 25 mg 0-21 tablets by ity of tablet 00:00: mouth in [place] 00 the Medical morning. Branch topiramate 2022-1 Yes [id number] 100mg Take 4 [facility] 25 mg 0-21 tablets by ity of tablet 00:00: mouth in [place] 00 the Medical morning. Branch topiramate 2022-1 Yes [id number] 100mg Take 4 [facility] 25 mg 0-21 tablets by ity of tablet 00:00: mouth in [place] 00 the Medical morning. Branch topiramate 2-1 Yes [id number] 100mg Take 4 [facility] 25 mg 0-21 tablets by ity of tablet 00:00: mouth in [place] the Medical morning. Branch topiramate 2021-1 Yes [id number] 100mg Take 4 [facility] 25 mg 0-21 tablets by ity of tablet 00:00: mouth in [place] the Medical morning. Branch topiramate 2021-1 Yes [id number] 100mg Take 4 [facility] 25 mg 0-21 tablets by ity of tablet 00:00: mouth in [place] the Medical morning. Branch topiramate 2021- Yes [id number] 100mg Take 4 [facility] 25 mg 0-21 tablets by ity of tablet 00:00: mouth in [place] the Medical morning. Branch topiramate 2021- Yes [id number] 100mg Take 4 [facility] 25 mg 0-21 tablets by ity of tablet 00:00: mouth in [place] the Medical morning. Branch topiramate 2021- Yes [id number] 100mg Take 4 [facility] 25 mg 0-21 tablets by ity of tablet 00:00: mouth in [place] the Medical morning. Branch topiramate 2021- Yes [id number] 100mg Take 4 [facility] 25 mg 0-21 tablets by ity of tablet 00:00: mouth in [place] the Medical morning. Branch topiramate 2021- Yes [id number] 100mg Take 4 [facility] 25 mg 0-21 tablets by ity of tablet 00:00: mouth in [place] the Medical morning. Branch topiramate 2-1 Yes [id number] 100mg Take 4 [facility] 25 mg 0-21 tablets by ity of tablet 00:00: mouth in [place] 00 the Medical morning. Branch topiramate 2-1 Yes [id number] 100mg Take 4 [facility] 25 mg 0-21 tablets by ity of tablet 00:00: mouth in [place] 00 the Medical morning. Branch topiramate 2-1 Yes [id number] 100mg Take 4 [facility] 25 mg 0-21 tablets by ity of tablet 00:00: mouth in [place] 00 the Medical morning. Branch topiramate 2021-1 Yes [id number] 100mg Take 4 [facility] 25 mg 0-21 tablets by ity of tablet 00:00: mouth in [place] 00 the Medical morning. Branch topiramate 2021-1 Yes [id number] 100mg Take 4 [facility] 25 mg 0-21 tablets by ity of tablet 00:00: mouth in [place] the Medical morning. Branch topiramate 2-1 Yes [id number] 100mg Take 4 [facility] 25 mg 0-21 tablets by ity of tablet 00:00: mouth in [place] the Medical morning. Branch topiramate 2-1 Yes [id number] 100mg Take 4 [facility] 25 mg 0-21 tablets by ity of tablet 00:00: mouth in [place] the Medical morning. Branch topiramate 2-1 Yes [id number] 100mg Take 4 [facility] 25 mg 0-21 tablets by ity of tablet 00:00: mouth in [place] the Medical morning. Branch topiramate 2-1 Yes [id number] 100mg Take 4 [facility] 25 mg 0-21 tablets by ity of tablet 00:00: mouth in [place] the Medical morning. Branch topiramate 2021-1 Yes [id number] 100mg Take 4 [facility] 25 mg 0-21 tablets by ity of tablet 00:00: mouth in [place] the Medical morning. Branch topiramate 2021-1 Yes [id number] 100mg Take 4 [facility] 25 mg 0-21 tablets by ity of tablet 00:00: mouth in [place] the Medical morning. Branch topiramate 2-1 Yes [id number] 100mg Take 4 [facility] 25 mg 0-21 tablets by ity of tablet 00:00: mouth in [place] the Medical morning. Branch topiramate 2-1 Yes [id number] 100mg Take 4 [facility] 25 mg 0-21 tablets by ity of tablet 00:00: mouth in [place] the Medical morning. Branch topiramate 2-1 Yes [id number] 100mg Take 4 [facility] 25 mg 0-21 tablets by ity of tablet 00:00: mouth in [place] the Medical morning. Branch topiramate 2022-1 Yes [id number] 100mg Take 4 [facility] 25 mg 0-21 tablets by ity of tablet 00:00: mouth in [place] 00 the Medical morning. Branch topiramate 2022-1 Yes [id number] 100mg Take 4 [facility] 25 mg 0-21 tablets by ity of tablet 00:00: mouth in [place] 00 the Medical morning. Branch topiramate 2022-1 Yes [id number] 100mg Take 4 [facility] 25 mg 0-21 tablets by ity of tablet 00:00: mouth in [place] 00 the Medical morning. Branch topiramate 2021-05 Yes [id number] 100mg Take 4 [facility] 25 mg 0-21 tablets by ity of tablet 00:00: mouth in [place] 00 the Medical morning. Branch topiramate 2021-05 Yes [id number] 100mg Take 4 [facility] 25 mg 0-21 tablets by ity of tablet 00:00: mouth in [place] 00 the Medical morning. Branch topiramate 2021-05 Yes [id number] 100mg Take 4 [facility] 25 mg 0-21 tablets by ity of tablet 00:00: mouth in [place] 00 the Medical morning. Branch diphenhydrA 2021-05- No 25mg Take 25 mg [facility] MINE 25 mg 0-18 10-18 by mouth ity of capsule 09:39: 00:00 every 6 [place] 59 :00 (six) Medical hours as Branch needed for Allergies. diphenhydrA 2021-05- No 25mg Take 25 mg [facility] MINE 25 mg 0-18 10-18 by mouth ity of capsule 09:39: 00:00 every 6 [place] 59 :00 (six) Medical hours as Branch needed for Allergies. diphenhydrA 2021-05 No 25mg Take 25 mg [facility] MINE 25 mg 0-18 10-18 by mouth ity of capsule 09:39: 00:00 every 6 [place] 59 :00 (six) Medical hours as Branch needed for Allergies. diphenhydrA 2021-05- No 25mg Take 25 mg [facility] MINE 25 mg 0-18 10-18 by mouth ity of capsule 09:39: 00:00 every 6 [place] 59 :00 (six) Medical hours as Branch needed for Allergies. diphenhydrA 2021-05- No 25mg Take 25 mg [facility] MINE 25 mg 0-18 10-18 by mouth ity of capsule 09:39: 00:00 every 6 [place] 59 :00 (six) Medical hours as Branch needed for Allergies. citalopram 2021-05- No Take by Uni vers hydrobromid 0-18 10-18 mouth. ity o f e 09:39: 00:00 [place] (CITALOPRAM 49 :00 Medical ORAL) Branch citalopram [...] 28 :00 Medical Branch albuterol 2021-05 Yes [id number] 2{puff} Inhale 2 Univers 90 0-18 Puffs ity of mcg/actuati 00:00: every 6 [place] on inhaler 00 (six) Medical hours as Branch needed for Wheezing or Shortness of Breath. albuterol 2021-05 Yes [id number] 2{puff} Inhale 2 [facility] 90 0-18 Puffs ity of mcg/actuati 00:00: every 6 [place] on inhaler 00 (six) Medical hours as Branch needed for Wheezing or Shortness of Breath. albuterol 2021-05 Yes [id number] 2{puff} Inhale 2 [facility] 90 0-18 Puffs ity of mcg/actuati 00:00: every 6 [place] inhaler 00 (six) Medical hours as Branch needed for Wheezing or Shortness of Breath. albuterol 2021-05 Yes [id number] 2{puff} Inhale 2 [facility] 90 0-18 Puffs ity of mcg/actuati 00:00: every 6 [place] inhaler 00 (six) Medical hours as Branch needed for Wheezing or Shortness of Breath. albuterol 2021-05 Yes [id number] 2{puff} Inhale 2 [facility] 90 0-18 Puffs ity of mcg/actuati 00:00: every 6 [place] on inhaler 00 (six) Medical hours as Branch needed for Wheezing or Shortness of Breath. albuterol 2021-05 Yes [id number] 2{puff} Inhale 2 [facility] 90 0-18 Puffs ity of mcg/actuati 00:00: every 6 [place] on inhaler 00 (six) Medical hours as Branch needed for Wheezing or Shortness of Breath. albuterol 2021-05 Yes [id number] 2{puff} Inhale 2 [facility] 90 0-18 Puffs ity of mcg/actuati 00:00: every 6 [place] on inhaler 00 (six) Medical hours as Branch needed for Wheezing or Shortness of Breath. albuterol 2021-05 Yes [id number] 2{puff} Inhale 2 [facility] 90 0-18 Puffs ity of mcg/actuati 00:00: every 6 [place] on inhaler 00 (six) Medical hours as Branch needed for Wheezing or Shortness of Breath. albuterol 2021-05 Yes [id number] 2{puff} Inhale 2 [facility] 90 0-18 Puffs ity of mcg/actuati 00:00: every 6 [place] on inhaler 00 (six) Medical hours as Branch needed for Wheezing or Shortness of Breath. albuterol 2021-05 Yes [id number] 2{puff} Inhale 2 [facility] 90 0-18 Puffs ity of mcg/actuati 00:00: every 6 [place] on inhaler 00 (six) Medical hours as Branch needed for Wheezing or Shortness of Breath. albuterol 2021-05 Yes [id number] 2{puff} Inhale 2 [facility] 90 0-18 Puffs ity of mcg/actuati 00:00: every 6 [place] as on inhaler 00 (six) Medical hours as Branch needed for Wheezing or Shortness of Breath. albuterol 2021-05 Yes [id number] 2{puff} Inhale 2 [facility] 90 0-18 Puffs ity of mcg/actuati 00:00: every 6 [place] as on inhaler 00 (six) Medical hours as Branch needed for Wheezing or Shortness of Breath. albuterol 2021-05 Yes [id number] 2{puff} Inhale 2 [facility] 90 0-18 Puffs ity of mcg/actuati 00:00: every 6 [place] as on inhaler 00 (six) Medical hours as Branch needed for Wheezing or Shortness of Breath. albuterol 2021-05 Yes [id number] 2{puff} Inhale 2 [facility] 90 0-18 Puffs ity of mcg/actuati 00:00: every 6 [place] as on inhaler 00 (six) Medical hours as Branch needed for Wheezing or Shortness of Breath. albuterol 2021-05 Yes [id number] 2{puff} Inhale 2 [facility] 90 0-18 Puffs ity of mcg/actuati 00:00: every 6 [place] as on inhaler 00 (six) Medical hours as Branch needed for Wheezing or Shortness of Breath. albuterol 2021-05 Yes [id number] 2{puff} Inhale 2 [facility] 90 0-18 Puffs ity of mcg/actuati 00:00: every 6 [place] as on inhaler 00 (six) Medical hours as Branch needed for Wheezing or Shortness of Breath. albuterol 2021-05 Yes [id number] 2{puff} Inhale 2 [facility] 90 0-18 Puffs ity of mcg/actuati 00:00: every 6 [place] as on inhaler 00 (six) Medical hours as Branch needed for Wheezing or Shortness of Breath. albuterol 2021-05 Yes [id number] 2{puff} Inhale 2 [facility] 90 0-18 Puffs ity of mcg/actuati 00:00: every 6 [place] as on inhaler 00 (six) Medical hours as Branch needed for Wheezing or Shortness of Breath. albuterol 2021-05 Yes [id number] 2{puff} Inhale 2 [facility] 90 0-18 Puffs ity of mcg/actuati 00:00: every 6 [place] on inhaler 00 (six) Medical hours as Branch needed for Wheezing or Shortness of Breath. albuterol 2021-05 Yes [id number] 2{puff} Inhale 2 [facility] 90 0-18 Puffs ity of mcg/actuati 00:00: every 6 [place] on inhaler 00 (six) Medical hours as Branch needed for Wheezing or Shortness of Breath. albuterol 2021-05 Yes [id number] 2{puff} Inhale 2 [facility] 90 0-18 Puffs ity of mcg/actuati 00:00: every 6 [place] on inhaler 00 (six) Medical hours as Branch needed for Wheezing or Shortness of Breath. albuterol 2021-05 Yes [id number] 2{puff} Inhale 2 [facility] 90 0-18 Puffs ity of mcg/actuati 00:00: every 6 [place] on inhaler 00 (six) Medical hours as Branch needed for Wheezing or Shortness of Breath. albuterol 2021-05 Yes [id number] 2{puff} Inhale 2 [facility] 90 0-18 Puffs ity of mcg/actuati 00:00: every 6 [place] on inhaler 00 (six) Medical hours as Branch needed for Wheezing or Shortness of Breath. albuterol 2021-05 Yes [id number] 2{puff} Inhale 2 [facility] 90 0-18 Puffs ity of mcg/actuati 00:00: every 6 [place] on inhaler 00 (six) Medical hours as Branch needed for Wheezing or Shortness of Breath. albuterol 2021-05 Yes [id number] 2{puff} Inhale 2 [facility] 90 0-18 Puffs ity of mcg/actuati 00:00: every 6 [place] on inhaler 00 (six) Medical hours as Branch needed for Wheezing or Shortness of Breath. albuterol 2021-05 Yes [id number] 2{puff} Inhale 2 [facility] 90 0-18 Puffs ity of mcg/actuati 00:00: every 6 [place] on inhaler 00 (six) Medical hours as Branch needed for Wheezing or Shortness of Breath. albuterol 2021-05 Yes [id number] 2{puff} Inhale 2 [facility] 90 0-18 Puffs ity of mcg/actuati 00:00: every 6 [place] on inhaler 00 (six) Medical hours as Branch needed for Wheezing or Shortness of Breath. albuterol 2021-05 Yes [id number] 2{puff} Inhale 2 [facility] 90 0-18 Puffs ity of mcg/actuati 00:00: every 6 [place] on inhaler 00 (six) Medical hours as Branch needed for Wheezing or Shortness of Breath. albuterol 2021-05 Yes [id number] 2{puff} Inhale 2 [facility] 90 0-18 Puffs ity of mcg/actuati 00:00: every 6 [place] on inhaler 00 (six) Medical hours as Branch needed for Wheezing or Shortness of Breath. albuterol 2021-05 Yes [id number] 2{puff} Inhale 2 [facility] 90 0-18 Puffs ity of mcg/actuati 00:00: every 6 [place] on inhaler 00 (six) Medical hours as Branch needed for Wheezing or Shortness of Breath. albuterol 2021-05 Yes [id number] 2{puff} Inhale 2 [facility] 90 0-18 Puffs ity of mcg/actuati 00:00: every 6 [place] on inhaler 00 (six) Medical hours as Branch needed for Wheezing or Shortness of Breath. albuterol 2021-05 Yes [id number] 2{puff} Inhale 2 [facility] 90 0-18 Puffs ity of mcg/actuati 00:00: every 6 [place] on inhaler 00 (six) Medical hours as Branch needed for Wheezing or Shortness of Breath. albuterol 2021-05 Yes [id number] 2{puff} Inhale 2 [facility] 90 0-18 Puffs ity of mcg/actuati 00:00: every 6 [place] on inhaler 00 (six) Medical hours as Branch needed for Wheezing or Shortness of Breath. albuterol 2021-05 Yes [id number] 2{puff} Inhale 2 [facility] 90 0-18 Puffs ity of mcg/actuati 00:00: every 6 [place] on inhaler 00 (six) Medical hours as Branch needed for Wheezing or Shortness of Breath. albuterol 2021-05 Yes [id number] 2{puff} Inhale 2 [facility] 90 0-18 Puffs ity of mcg/actuati 00:00: every 6 [place] on inhaler 00 (six) Medical hours as Branch needed for Wheezing or Shortness of Breath. albuterol 2021-05 Yes [id number] 2{puff} Inhale 2 [facility] 90 0-18 Puffs ity of mcg/actuati 00:00: every 6 [place] on inhaler 00 (six) Medical hours as Branch needed for Wheezing or Shortness of Breath. albuterol 2021-05 Yes [id number] 2{puff} Inhale 2 [facility] 90 0-18 Puffs ity of mcg/actuati 00:00: every 6 [place] on inhaler 00 (six) Medical hours as Branch needed for Wheezing or Shortness of Breath. albuterol 2021-05 Yes [id number] 2{puff} Inhale 2 [facility] 90 0-18 Puffs ity of mcg/actuati 00:00: every 6 [place] on inhaler 00 (six) Medical hours as Branch needed for Wheezing or Shortness of Breath. albuterol 2021-05 Yes [id number] 2{puff} Inhale 2 [facility] 90 0-18 Puffs ity of mcg/actuati 00:00: every 6 [place] on inhaler 00 (six) Medical hours as Branch needed for Wheezing or Shortness of Breath. albuterol 2021-05 Yes [id number] 2{puff} Inhale 2 [facility] 90 0-18 Puffs ity of mcg/actuati 00:00: every 6 [place] on inhaler 00 (six) Medical hours as Branch needed for Wheezing or Shortness of Breath. albuterol 2021-05 Yes [id number] 2{puff} Inhale 2 [facility] 90 0-18 Puffs ity of mcg/actuati 00:00: every 6 [place] on inhaler 00 (six) Medical hours as Branch needed for Wheezing or Shortness of Breath. albuterol 2021-05 Yes [id number] 2{puff} Inhale 2 [facility] 90 0-18 Puffs ity of mcg/actuati 00:00: every 6 [place] on inhaler 00 (six) Medical hours as Branch needed for Wheezing or Shortness of Breath. albuterol 2021-05 Yes [id number] 2{puff} Inhale 2 [facility] 90 0-18 Puffs ity of mcg/actuati 00:00: every 6 [place] on inhaler 00 (six) Medical hours as Branch needed for Wheezing or Shortness of Breath. albuterol 2021-05 Yes [id number] 2{puff} Inhale 2 [facility] 90 0-18 Puffs ity of mcg/actuati 00:00: every 6 [place] on inhaler 00 (six) Medical hours as Branch needed for Wheezing or Shortness of Breath. albuterol 2021-05 Yes [id number] 2{puff} Inhale 2 [facility] 90 0-18 Puffs ity of mcg/actuati 00:00: every 6 [place] on inhaler 00 (six) Medical hours as Branch needed for Wheezing or Shortness of Breath. albuterol 2021-05 Yes [id number] 2{puff} Inhale 2 [facility] 90 0-18 Puffs ity of mcg/actuati 00:00: every 6 [place] on inhaler 00 (six) Medical hours as Branch needed for Wheezing or Shortness of Breath. albuterol 2021-05 Yes [id number] 2{puff} Inhale 2 [facility] 90 0-18 Puffs ity of mcg/actuati 00:00: every 6 [place] on inhaler 00 (six) Medical hours as Branch needed for Wheezing or Shortness of Breath. albuterol 2021-05 Yes [id number] 2{puff} Inhale 2 [facility] 90 0-18 Puffs ity of mcg/actuati 00:00: every 6 [place] on inhaler 00 (six) Medical hours as Branch needed for Wheezing or Shortness of Breath. albuterol 2021-05 Yes [id number] 2{puff} Inhale 2 [facility] 90 0-18 Puffs ity of mcg/actuati 00:00: every 6 [place] on inhaler 00 (six) Medical hours as Branch needed for Wheezing or Shortness of Breath. albuterol 2021-05 Yes [id number] 2{puff} Inhale 2 [facility] 90 0-18 Puffs ity of mcg/actuati 00:00: every 6 [place] on inhaler 00 (six) Medical hours as Branch needed for Wheezing or Shortness of Breath. albuterol 2021-05 Yes [id number] 2{puff} Inhale 2 [facility] 90 0-18 Puffs ity of mcg/actuati 00:00: every 6 [place] on inhaler 00 (six) Medical hours as Branch needed for Wheezing or Shortness of Breath. albuterol 2021-05 Yes [id number] 2{puff} Inhale 2 [facility] 90 0-18 Puffs ity of mcg/actuati 00:00: every 6 [place] on inhaler 00 (six) Medical hours as Branch needed for Wheezing or Shortness of Breath. albuterol 2021-05 Yes [id number] 2{puff} Inhale 2 [facility] 90 0-18 Puffs ity of mcg/actuati 00:00: every 6 [place] on inhaler 00 (six) Medical hours as Branch needed for Wheezing or Shortness of Breath. albuterol 2021-05 Yes [id number] 2{puff} Inhale 2 [facility] 90 0-18 Puffs [...] a 24 hour period. benzonatate 2021-05- No [id number] 200mg Take 1 [facility] 200 mg 0-18 10-26 capsule by ity of capsule 00:00: 04:59 mouth 3 [place] 00 :00 (three) Medical times Branch daily as needed for Cough for up to 7 days. benzonatate 2021-05- No [id number] 200mg Take 1 [facility] 200 mg 0-18 10-26 capsule by ity of capsule 00:00: 04:59 mouth 3 [place] 00 :00 (three) Medical times Branch daily as needed for Cough for up to 7 days. benzonatate 2021-05- No [id number] 200mg Take 1 [facility] 200 mg 0-18 10-26 capsule by ity of capsule 00:00: 04:59 mouth 3 [place] 00 :00 (three) Medical times Branch daily as needed for Cough for up to 7 days. benzonatate 2021-05- No [id number] 200mg Take 1 [facility] 200 mg 0-18 10-26 capsule by ity of capsule 00:00: 04:59 mouth 3 [place] 00 :00 (three) Medical times Branch daily as needed for Cough for up to 7 days. benzonatate 2021-05 No [id number] 200mg Take 1 [facility] 200 mg 003-07 capsule by ity of capsule 00:00: 04:59 mouth 3 [place] 00 :00 (three) Medical times [place] daily as needed for Cough for up to 7 days. benzonatate 2021-05 No [id number] 200mg Take 1 [facility] 200 mg 003-07 capsule by ity of capsule 00:00: 04:59 mouth 3 [place] 00 :00 (three) Medical times [place] daily as needed for Cough for up to 7 days. SUMAtriptan 2021-05- No [id number] 50mg Take 1 [facility] 50 mg 002-28 [id number] tablet by ity of tablet 00:00: 04:59 mouth [place] 00 :00 now for 1 Medical dose. [place] SUMAtriptan 2021-05 No [id number] 50mg Take 1 [facility] 50 mg 02-28 [...] IV ity of (BENADRYL) 06:30: 06:38 [place], [place] injection 00 :00 ONCE, 1 Medical 25 mg dose, On Branch Sat02/21/22 at 0130, STAT FENTanyl PF 2021-05 No 50ug 50 mcg, Un sushant (SUBLIMAZE 002-18 Slow IV ity o f (PF)) 20:30: 19:44 [place], [place] injection 00 :00 ONCE, 1 Medical 50 mcg dose, On Branch 02/18/22 at 1530, Routine ketorolac 2021-05- No 30mg 30 mg, Unive rs (TORADOL) 0- Slow IV ity of injection 20:15: 20:09 Push, [place] 30 mg 00 :00 ONCE, 1 Medical dose, On Branch 02/18/22 at 1515, [place] iopamidol 2021-05- No [id number] 60mL 60 mL, Un sushant (ISOVUE 0- Intravenou ity o f 370-500 mL) 19:30: 17:30 s, ONCE, 1 [place] injection 00 :00 dose, On Medica l 60 mL [facility] 02/18/22 at 1430, Routine proMETHazin 2021-05 No 12.5mg 12.5 mg, Univers e 02-18 IV ity of (PHENERGAN) 18:15: 18:19 Piggyback, [place] 12.5 mg in 00 :00 ONCE, 1 Medica l NaCl 0.9% dose, On Branch (NS) 50 mL [place] IV 02/18/22 at piggyback 1315, [place] FENTanyl PF 2021-05 No 50ug 50 mcg, Un sushant (SUBLIMAZE 02-18 Slow IV ity o f (PF)) 18:00: 17:26 Push, [place] injection 00 :00 ONCE, 1 Medical 50 mcg dose, On Branch [place] 02/18/22 at 1300, Routine ondansetron 2021-05 No 4mg 4 mg, Slow [facility] (ZOFRAN 02-18 IV [place], ity of (PF)) 17:15: 17:27 ONCE, 1 [place] injection 4 00 :00 dose, On Medi yessi mg [facility] 02/18/22 at 1215, [place] morpHINE (2 2021- No 4mg 4 mg, Slow Univers mg/mL) 01-18 IV [place], ity of injection 4 15:15: 14:49 ONCE, 1 [place] mg 00 :00 dose, On [facility] 01/18/22 Branch at 1015, STAT ondansetron 2021- No 4mg 4 mg, Slow [facility] (ZOFRAN 01-18 IV [place], ity of (PF)) 13:30: 13:33 ONCE, 1 [place] injection 4 00 :00 dose, On Medi yessi mg [facility] 01/18/22 Branch at 0830, [place] morpHINE (4 2021-2021- No 4mg 4 mg, Slow [facility] mg/mL) 01-18 IV [place], ity of injection 4 13:30: 13:34 ONCE, 1 [place] mg 00 :00 dose, On [facility] 01/18/22 Branch at 0830, STAT morpHINE [...] Branch at 0630, [place] iodixanoL 2021- No [id number] 80mL 80 mL, U nivers (VISIPAQUE 01-18 Intravenou it y of 270-150 mL) 11:21: 11:15 s, ONCE, 1 [place] injection 00 :00 dose, On Medica l 80 mL [facility] 01/18/22 Branch at 0630, Routine NaCl 0.9% [...] Indication s: acute pain ondansetron 2022-0 Yes [id number] 4mg Take 1 [facility] 4 mg 9-08 [id number] tablet by ity of disintegrat 00:00: mouth [place] ing tablet 00 every 8 Medica l (eight) Branch hours as needed for Nausea and Vomiting (N/V). ibuprofen 2021-0 Yes [id number] 600mg Take 1 [facility] 600 mg 9-08 [id number] tablet by ity of tablet 00:00: mouth [place] 00 every 6 Medical (six) Branch hours as needed for Pain (scale 4-6). traMADoL 50 2021-0 Yes [id number] 50mg Take 1 Univ ers mg tablet 9-08 tablet by ity o f 00:00: mouth [place] 00 every 6 Medical (six) Branch hours as needed for Pain (scale 7-10). Indication s: acute pain ondansetron 2021-0 Yes [id number] 4mg Take 1 [facility] 4 mg 9-08 [id number] tablet by ity of disintegrat 00:00: mouth [place] ing tablet 00 every 8 Medica l (eight) Branch hours as needed for Nausea and Vomiting (N/V). ibuprofen 2021-0 Yes [id number] 600mg Take 1 [facility] 600 mg 9-08 [id number] tablet by ity of tablet 00:00: mouth [place] 00 every 6 Medical (six) Branch hours as needed for Pain (scale 4-6). traMADoL 50 2021-0 Yes [id number] 50mg Take 1 Univ ers mg tablet 9-08 tablet by ity o f 00:00: mouth [place] 00 every 6 Medical (six) Branch hours as needed for Pain (scale 7-10). Indication s: acute pain ondansetron 2021-0 Yes [id number] 4mg Take 1 [facility] 4 mg 9-08 [id number] tablet by ity of disintegrat 00:00: mouth [place] ing tablet 00 every 8 Medica l (eight) Branch hours as needed for Nausea and Vomiting (N/V). ibuprofen 2021-0 Yes [id number] 600mg Take 1 [facility] 600 mg 9-08 [id number] tablet by ity of tablet 00:00: mouth [place] 00 every 6 Medical (six) Branch hours as needed for Pain (scale 4-6). traMADoL 50 2021-0 Yes [id number] 50mg Take 1 Univ ers mg tablet 9-08 tablet by ity o f 00:00: mouth [place] 00 every 6 Medical (six) Branch hours as needed for Pain (scale 7-10). Indication s: acute pain ondansetron 2022-0 Yes [id number] 4mg Take 1 [facility] 4 mg 9-08 [id number] tablet by ity of disintegrat 00:00: mouth [place] ing tablet 00 every 8 Medica l (eight) Branch hours as needed for Nausea and Vomiting (N/V). ibuprofen 2022-0 Yes [id number] 600mg Take 1 [facility] 600 mg 9-08 [id number] tablet by ity of tablet 00:00: mouth [place] 00 every 6 Medical (six) Branch hours as needed for Pain (scale 4-6). traMADoL 50 2022-0 Yes [id number] 50mg Take 1 Univ ers mg tablet 9-08 tablet by ity o f 00:00: mouth [place] 00 every 6 Medical (six) Branch hours as needed for Pain (scale 7-10). Indication s: acute pain ondansetron 2022-0 Yes [id number] 4mg Take 1 [facility] 4 mg 9-08 [id number] tablet by ity of disintegrat 00:00: mouth [place] ing tablet 00 every 8 Medica l (eight) Branch hours as needed for Nausea and Vomiting (N/V). ibuprofen 2022-0 Yes [id number] 600mg Take 1 [facility] 600 mg 9-08 [id number] tablet by ity of tablet 00:00: mouth [place] 00 every 6 Medical (six) Branch hours as needed for Pain (scale 4-6). traMADoL 50 2022-0 Yes [id number] 50mg Take 1 Univ ers mg tablet 9-08 tablet by ity o f 00:00: mouth [place] 00 every 6 Medical (six) Branch hours as needed for Pain (scale 7-10). Indication s: acute pain ondansetron 2022-0 Yes [id number] 4mg Take 1 [facility] 4 mg 9-08 [id number] tablet by ity of disintegrat 00:00: mouth [place] ing tablet 00 every 8 Medica l (eight) Branch hours as needed for Nausea and Vomiting (N/V). ibuprofen 2022-0 Yes [id number] 600mg Take 1 [facility] 600 mg 9-08 [id number] tablet by ity of tablet 00:00: mouth [place] 00 every 6 Medical (six) Branch hours as needed for Pain (scale 4-6). traMADoL 50 2022-0 Yes [id number] 50mg Take 1 Univ ers mg tablet 9-08 tablet by ity o f 00:00: mouth [place] 00 every 6 Medical (six) Branch hours as needed for Pain (scale 7-10). Indication s: acute pain ondansetron 2021-0 Yes [id number] 4mg Take 1 [facility] 4 mg - [id number] tablet by ity of disintegrat 00:00: mouth [place] ing tablet 00 every 8 Medica l (eight) Branch hours as needed for Nausea and Vomiting (N/V). ibuprofen 2021-0 Yes [id number] 600mg Take 1 [facility] 600 mg 9- [id number] tablet by ity of tablet 00:00: mouth [place] 00 every 6 Medical (six) Branch hours as needed for Pain (scale 4-6). traMADoL 50 2021-0 Yes [id number] 50mg Take 1 Univ ers mg tablet 9-08 tablet by ity o f 00:00: mouth [place] 00 every 6 Medical (six) Branch hours as needed for Pain (scale 7-10). Indication s: acute pain ondansetron 2021-0 Yes [id number] 4mg Take 1 [facility] 4 mg - [id number] tablet by ity of disintegrat 00:00: mouth [place] ing tablet 00 every 8 Medica l (eight) Branch hours as needed for Nausea and Vomiting (N/V). ibuprofen 2021-0 Yes [id number] 600mg Take 1 [facility] 600 mg - [id number] tablet by ity of tablet 00:00: mouth [...] s: acute pain ondansetron 2021-0 202- No [id number] 4mg Take 1 [facility] 4 mg -02-27 [id number] tablet by ity of disintegrat 00:00: 00:00 mouth [place] ing tablet 00 :00 every 8 Medica l (eight) Branch hours as needed for Nausea and Vomiting (N/V). ibuprofen 2021-0 2021- No [id number] 600mg Take 1 [facility] 600 mg 9-08 10-18 [id number] tablet by ity o f tablet 00:00: [...] Indication s: acute pain ondansetron 2021-2021- No [id number] 4mg Take 1 [facility] 4 mg 01-18 [id number] tablet by ity of disintegrat 00:00: 00:00 mouth [place] ing tablet 00 :00 every 8 Medica l (eight) Branch hours as needed for Nausea and Vomiting (N/V). ibuprofen 2021-2021- No [id number] 600mg Take 1 [facility] 600 mg 01-18 [id number] tablet by ity o f tablet 00:00: [...] Indication s: acute pain ondansetron 2021-2021- No [id number] 4mg Take 1 [facility] 4 mg 01-18 [id number] tablet by ity of disintegrat 00:00: 00:00 mouth [place] ing tablet 00 :00 every 8 Medica l (eight) Branch hours as needed for Nausea and Vomiting (N/V). ibuprofen 2021-2021- No [id number] 600mg Take 1 [facility] 600 mg 01-18 [id number] tablet by ity o f tablet 00:00: [...] Indication s: acute pain ondansetron 2021- No [id number] 4mg Take 1 [facility] 4 mg 01-18 [id number] tablet by ity of disintegrat 00:00: 00:00 mouth [place] ing tablet 00 :00 every 8 Medica l (eight) Branch hours as needed for Nausea and Vomiting (N/V). ibuprofen 2021- No [id number] 600mg Take 1 [facility] 600 mg 01-18 [id number] tablet by ity o f tablet 00:00: 00:00 mouth [place] 00 :00 every 6 Medical (six) Branch hours as needed for Pain (scale 4-6). predniSONE 2021- No [id number] 40mg Take 2 [facility] 20 mg 01-16 tablets by ity of tablet 00:00: 04:59 mouth in [place] 00 :00 the Medical morning Branch for 7 days. predniSONE 2021- No [id number] 40mg Take 2 [facility] 20 mg 01-16 tablets by ity of tablet 00:00: 04:59 mouth in [place] 00 :00 the Medical morning Branch for [...] at 0915, 1 mL proMETHazin 2021-0 Yes [id number] 25mg Take 1 Univers e 25 mg 9-05 tablet by ity of tablet 00:00: mouth [place] 00 every 6 Medical (six) Branch hours as needed for Nausea and Vomiting (N/V). proMETHazin 2021-0 Yes [id number] 25mg Take 1 Univers e 25 mg 9-05 tablet by ity of tablet 00:00: mouth [place] 00 every 6 Medical (six) Branch hours as needed for Nausea and Vomiting (N/V). proMETHazin 2021-0 Yes [id number] 25mg Take 1 Univers e 25 mg 9-05 tablet by ity of tablet 00:00: mouth [place] 00 every 6 Medical (six) Branch hours as needed for Nausea and Vomiting (N/V). proMETHazin 2022-0 Yes [id number] 25mg Take 1 Univers e 25 mg 9-05 tablet by ity of tablet 00:00: mouth [place] 00 every 6 Medical (six) Branch hours as needed for Nausea and Vomiting (N/V). proMETHazin 2-0 Yes [id number] 25mg Take 1 Univers e 25 mg 9-05 tablet by ity of tablet 00:00: mouth [place] 00 every 6 Medical (six) Branch hours as needed for Nausea and Vomiting (N/V). proMETHazin 0 Yes [id number] 25mg Take 1 Univers e 25 mg 9-05 tablet by ity of tablet 00:00: mouth [place] 00 every 6 Medical (six) Branch hours as needed for Nausea and Vomiting (N/V). proMETHazin 0 Yes [id number] 25mg Take 1 Univers e 25 mg 9-05 tablet by ity of tablet 00:00: mouth [place] 00 every 6 Medical (six) Branch hours as needed for Nausea and Vomiting (N/V). proMETHazin 0 Yes [id number] 25mg Take 1 Univers e 25 mg 9-05 tablet by ity of tablet 00:00: mouth [place] 00 every 6 Medical (six) Branch hours as needed for Nausea and Vomiting (N/V). proMETHazin 0 Yes [id number] 25mg Take 1 Univers e 25 mg 9-05 tablet by ity of tablet 00:00: mouth [place] 00 every 6 Medical (six) Branch hours as needed for Nausea and Vomiting (N/V). proMETHazin 2021- No [id number] 25mg Take 1 Univers e 25 mg 9-05 10-18 tablet by ity of tablet 00:00: 00:00 mouth [place] 00 :00 every 6 Medical (six) Branch hours as needed for Nausea and Vomiting (N/V). proMETHazin 0 2021- No [id number] 25mg Take 1 Univers e 25 mg 9-05 10-18 tablet by ity of tablet 00:00: 00:00 mouth [place] 00 :00 every 6 Medical (six) Branch hours as needed for Nausea and Vomiting (N/V). proMETHazin 0 2021- No [id number] 25mg Take 1 Univers e 25 mg 9-05 10-18 tablet by ity of tablet 00:00: 00:00 mouth [place] 00 :00 every 6 Medical (six) Branch hours as needed for Nausea and Vomiting (N/V). proMETHazin 2021-0 2021- No [id number] 25mg Take 1 Univers e 25 mg [...] IV ity of (BENADRYL) 23:45: 23:51 Push, [place] injection 00 :00 ONCE, 1 Medical 25 mg dose, On Branch [facility] 01/08/22 at 1845, STAT dexamethaso 2021- No 10mg 10 mg, Uni vers ne sod phos 01-08 Slow IV ity of PF 23:45: 23:50 Push, [place] injection 00 :00 ONCE, 1 Medical 10 mg dose, On Branch [facility] 01/08/22 at 1845, 1 mL ketorolac 2021- No 30mg 30 mg, Unive rs (TORADOL) 01-08 Slow IV ity of injection 23:45: 23:51 Push, [place] 30 mg 00 :00 ONCE, 1 Medical dose, On Branch [facility] 01/08/22 at 1845, [place] ondansetron Yes [id number] 4mg Take 1 Univers 4 mg 8-29 tablet by ity of disintegrat 00:00: mouth [place] ing tablet 00 every 8 Medica l (eight) Branch hours as needed for Nausea and Vomiting (N/V). acetaminoph 0 Yes [id number] 650mg Take 1 Univers en (TYLENOL 8-29 tablet by ity of ARTHRITIS 00:00: mouth [place] PAIN) 650 00 every 8 Medical mg CR (eight) Branch tablet hours as needed for Pain. ketorolac 0 Yes [id number] 10mg Take 1 U nivers 10 mg 8-29 tablet by ity of tablet 00:00: mouth [place] 00 every 6 Medical (six) Branch hours as needed for Pain (scale 4-6) or Pain (scale 7-10). metaxalone 2022-0 Yes [id number] 800mg Take 1 Univers (SKELAXIN) 8-29 tablet by ity of 800 mg 00:00: mouth in [place] tablet 00 the Medical morning Branch and 1 tablet at noon and 1 tablet in the evening. ondansetron 2022-0 Yes [id number] 4mg Take 1 Univers 4 mg 8-29 tablet by ity of disintegrat 00:00: mouth [place] ing tablet 00 every 8 Medica l (eight) Branch hours as needed for Nausea and Vomiting (N/V). acetaminoph 2022-0 Yes [id number] 650mg Take 1 Univers en (TYLENOL 8-29 tablet by ity of ARTHRITIS 00:00: mouth [place] PAIN) 650 00 every 8 Medical mg CR (eight) Branch tablet hours as needed for Pain. ketorolac 2022-0 Yes [id number] 10mg Take 1 U nivers 10 mg 8-29 tablet by ity of tablet 00:00: mouth [place] 00 every 6 Medical (six) Branch hours as needed for Pain (scale 4-6) or Pain (scale 7-10). metaxalone 2022-0 Yes [id number] 800mg Take 1 Univers (SKELAXIN) 8-29 tablet by ity of 800 mg 00:00: mouth in [place] tablet 00 the Medical morning Branch and 1 tablet at noon and 1 tablet in the evening. ondansetron 2022-0 Yes [id number] 4mg Take 1 Univers 4 mg 8-29 tablet by ity of disintegrat 00:00: mouth [place] ing tablet 00 every 8 Medica l (eight) Branch hours as needed for Nausea and Vomiting (N/V). acetaminoph 2022-0 Yes [id number] 650mg Take 1 Univers en (TYLENOL 8-29 tablet by ity of ARTHRITIS 00:00: mouth [place] PAIN) 650 00 every 8 Medical mg CR (eight) Branch tablet hours as needed for Pain. ketorolac 2022-0 Yes [id number] 10mg Take 1 U nivers 10 mg 8-29 tablet by ity of tablet 00:00: mouth [place] 00 every 6 Medical (six) Branch hours as needed for Pain (scale 4-6) or Pain (scale 7-10). metaxalone 2022-0 Yes [id number] 800mg Take 1 Univers (SKELAXIN) 8-29 tablet by ity of 800 mg 00:00: mouth in [place] tablet 00 the Medical morning Branch and 1 tablet at noon and 1 tablet in the evening. ondansetron 2022-0 Yes [id number] 4mg Take 1 [facility] 4 mg 8-29 tablet by ity of disintegrat 00:00: mouth [place] ing tablet 00 every 8 Medica l (eight) Branch hours as needed for Nausea and Vomiting (N/V). acetaminoph 2022-0 Yes [id number] 650mg Take 1 [facility] en (TYLENOL 8-29 tablet by ity of ARTHRITIS 00:00: mouth [place] PAIN) 650 00 every 8 Medical mg CR (eight) Branch tablet hours as needed for Pain. ketorolac 2022-0 Yes [id number] 10mg Take 1 U nivers 10 mg 8-29 tablet by ity of tablet 00:00: mouth [place] 00 every 6 Medical (six) Branch hours as needed for Pain (scale 4-6) or Pain (scale 7-10). metaxalone 2022-0 Yes [id number] 800mg Take 1 Univers (SKELAXIN) 8-29 tablet by ity of 800 mg 00:00: mouth in [place] tablet 00 the Medical morning Branch and 1 tablet at noon and 1 tablet in the evening. ondansetron 2022-0 Yes [id number] 4mg Take 1 [facility] 4 mg 8-29 tablet by ity of disintegrat 00:00: mouth [place] ing tablet 00 every 8 Medica l (eight) Branch hours as needed for Nausea and Vomiting (N/V). acetaminoph 2022-0 Yes [id number] 650mg Take 1 [facility] en (TYLENOL 8-29 tablet by ity of ARTHRITIS 00:00: mouth [place] PAIN) 650 00 every 8 Medical mg CR (eight) Branch tablet hours as needed for Pain. ketorolac 2022-0 Yes [id number] 10mg Take 1 [facility] n[facility] 10 mg 8-29 tablet by ity of tablet 00:00: mouth [place] 00 every 6 Medical (six) Branch hours as needed for Pain (scale 4-6) or Pain (scale 7-10). metaxalone 2022-0 Yes [id number] 800mg Take 1 [facility] (SKELAXIN) 8-29 tablet by ity of 800 mg 00:00: mouth in [place] tablet 00 the Medical morning Branch and 1 tablet at noon and 1 tablet in the evening. ondansetron 2022-0 Yes [id number] 4mg Take 1 [facility] 4 mg 8-29 tablet by ity of disintegrat 00:00: mouth [place] ing tablet 00 every 8 Medica l (eight) Branch hours as needed for Nausea and Vomiting (N/V). acetaminoph 2022-0 Yes [id number] 650mg Take 1 [facility] en (TYLENOL 8-29 tablet by ity of ARTHRITIS 00:00: mouth [place] PAIN) 650 00 every 8 Medical mg CR (eight) Branch tablet hours as needed for Pain. ketorolac 2022-0 Yes [id number] 10mg Take 1 [facility] n[facility] 10 mg 8-29 tablet by ity of tablet 00:00: mouth [place] 00 every 6 Medical (six) Branch hours as needed for Pain (scale 4-6) or Pain (scale 7-10). metaxalone 2021-0 Yes [id number] 800mg Take 1 [facility] (SKELAXIN) 8-29 tablet by ity of 800 mg 00:00: mouth in [place] tablet 00 the Medical morning Branch and 1 tablet at noon and 1 tablet in the evening. ondansetron 2021-0 Yes [id number] 4mg Take 1 [facility] 4 mg 8-29 tablet by ity of disintegrat 00:00: mouth [place] ing tablet 00 every 8 Medica l (eight) Branch hours as needed for Nausea and Vomiting (N/V). acetaminoph 2-0 Yes [id number] 650mg Take 1 [facility] en (TYLENOL 8-29 tablet by ity of ARTHRITIS 00:00: mouth [place] PAIN) 650 00 every 8 Medical mg CR (eight) Branch tablet hours as needed for Pain. ketorolac 2022-0 Yes [id number] 10mg Take 1 [facility] 10 mg 8-29 tablet by ity of tablet 00:00: mouth [place] 00 every 6 Medical (six) Branch hours as needed for Pain (scale 4-6) or Pain (scale 7-10). metaxalone 2022-0 Yes [id number] 800mg Take 1 [facility] (SKELAXIN) 8-29 tablet by ity of 800 mg 00:00: mouth in [place] tablet 00 the Medical morning Branch and 1 tablet at noon and 1 tablet in the evening. ondansetron 2022-0 Yes [id number] 4mg Take 1 [facility] 4 mg 8-29 tablet by ity of disintegrat 00:00: mouth [place] ing tablet 00 every 8 Medica l (eight) Branch hours as needed for Nausea and Vomiting (N/V). acetaminoph 2022-0 Yes [id number] 650mg Take 1 [facility] en (TYLENOL 8-29 tablet by ity of ARTHRITIS 00:00: mouth [place] PAIN) 650 00 every 8 Medical mg CR (eight) Branch tablet hours as needed for Pain. ketorolac 2022-0 Yes [id number] 10mg Take 1 [facility] 10 mg 8-29 tablet by ity of tablet 00:00: mouth [place] 00 every 6 Medical (six) Branch hours as needed for Pain (scale 4-6) or Pain (scale 7-10). metaxalone 2022-0 Yes [id number] 800mg Take 1 [facility] (SKELAXIN) 8-29 tablet by ity of 800 mg 00:00: mouth in [place] tablet 00 the Medical morning Branch and 1 tablet at noon and 1 tablet in the evening. ondansetron 2-0 Yes [id number] 4mg Take 1 [facility] 4 mg 8-29 tablet by ity of disintegrat 00:00: mouth [place] ing tablet 00 every 8 Medica l (eight) Branch hours as needed for Nausea and Vomiting (N/V). acetaminoph 2-0 Yes [id number] 650mg Take 1 [facility] en (TYLENOL 8-29 tablet by ity of ARTHRITIS 00:00: mouth [place] PAIN) 650 00 every 8 Medical mg CR (eight) Branch tablet hours as needed for Pain. ketorolac 2022-0 Yes [id number] 10mg Take 1 [facility] 10 mg 8-29 tablet by ity of tablet 00:00: mouth [place] 00 every 6 Medical (six) Branch hours as needed for Pain (scale 4-6) or Pain (scale 7-10). metaxalone 2022-0 Yes [id number] 800mg Take 1 [facility] (SKELAXIN) 8-29 tablet by ity of 800 mg 00:00: mouth in [place] tablet 00 the Medical morning Branch and 1 tablet at noon and 1 tablet in the evening. ondansetron 2021-0 Yes [id number] 4mg Take 1 [facility] 4 mg 8-29 tablet by ity of disintegrat 00:00: mouth [place] ing tablet 00 every 8 Medica l (eight) Branch hours as needed for Nausea and Vomiting (N/V). acetaminoph 2021-0 Yes [id number] 650mg Take 1 [facility] en (TYLENOL 8-29 tablet by ity of ARTHRITIS 00:00: mouth [place] PAIN) 650 00 every 8 Medical mg CR (eight) Branch tablet hours as needed for Pain. ketorolac 2021-0 Yes [id number] 10mg Take 1 [facility] 10 mg 8-29 tablet by ity of tablet 00:00: mouth [place] 00 every 6 Medical (six) Branch hours as needed for Pain (scale 4-6) or Pain (scale 7-10). metaxalone 2021-0 Yes [id number] 800mg Take 1 [facility] (SKELAXIN) 8-29 tablet by ity of 800 mg 00:00: mouth in [place] tablet 00 the Medical morning Branch and 1 tablet at noon and 1 tablet in the evening. acetaminoph 2021-0 Yes [id number] 650mg Take 1 [facility] en (TYLENOL 8-29 tablet by ity of ARTHRITIS 00:00: mouth [place] PAIN) 650 00 every 8 Medical mg CR (eight) Branch tablet hours as needed for Pain. acetaminoph 2021-0 Yes [id number] 650mg Take 1 [facility] en (TYLENOL 8-29 tablet by ity of ARTHRITIS 00:00: mouth [place] PAIN) 650 00 every 8 Medical mg CR (eight) Branch tablet hours as needed for Pain. acetaminoph 2021-0 Yes [id number] 650mg Take 1 [facility] en (TYLENOL 8-29 tablet by ity of ARTHRITIS 00:00: mouth [place] PAIN) 650 00 every 8 Medical mg CR (eight) Branch tablet hours as needed for Pain. acetaminoph 2021-0 Yes [id number] 650mg Take 1 [facility] en (TYLENOL 8-29 tablet by ity of ARTHRITIS 00:00: mouth [place] PAIN) 650 00 every 8 Medical mg CR (eight) Branch tablet hours as needed for Pain. acetaminoph 2021-0 Yes [id number] 650mg Take 1 [facility] en (TYLENOL 8-29 tablet by ity of ARTHRITIS 00:00: mouth [place] PAIN) 650 00 every 8 Medical mg CR (eight) Branch tablet hours as needed for Pain. acetaminoph 0 Yes [id number] 650mg Take 1 [facility] en (TYLENOL 8-29 tablet by ity of ARTHRITIS 00:00: mouth [place] PAIN) 650 00 every 8 Medical mg CR (eight) Branch tablet hours as needed for Pain. acetaminoph 0 Yes [id number] 650mg Take 1 [facility] en (TYLENOL 8-29 tablet by ity of ARTHRITIS 00:00: mouth [place] PAIN) 650 00 every 8 Medical mg CR (eight) Branch tablet hours as needed for Pain. acetaminoph 0 Yes [id number] 650mg Take 1 [facility] en (TYLENOL 8-29 tablet by ity of ARTHRITIS 00:00: mouth [place] PAIN) 650 00 every 8 Medical mg CR (eight) Branch tablet hours as needed for Pain. acetaminoph 0 Yes [id number] 650mg Take 1 [facility] en (TYLENOL 8-29 tablet by ity of ARTHRITIS 00:00: mouth [place] PAIN) 650 00 every 8 Medical mg CR (eight) Branch tablet hours as needed for Pain. acetaminoph 0 Yes [id number] 650mg Take 1 [facility] en (TYLENOL 8-29 tablet by ity of ARTHRITIS 00:00: mouth [place] PAIN) 650 00 every 8 Medical mg CR (eight) Branch tablet hours as needed for Pain. acetaminoph 0 Yes [id number] 650mg Take 1 [facility] en (TYLENOL 8-29 tablet by ity of ARTHRITIS 00:00: mouth [place] PAIN) 650 00 every 8 Medical mg CR (eight) Branch tablet hours as needed for Pain. acetaminoph 0 Yes [id number] 650mg Take 1 [facility] en (TYLENOL 8-29 tablet by ity of ARTHRITIS 00:00: mouth [place] PAIN) 650 00 every 8 Medical mg CR (eight) Branch tablet hours as needed for Pain. acetaminoph 0 Yes [id number] 650mg Take 1 [facility] en (TYLENOL 8-29 tablet by ity of ARTHRITIS 00:00: mouth [place] PAIN) 650 00 every 8 Medical mg CR (eight) Branch tablet hours as needed for Pain. acetaminoph 0 Yes [id number] 650mg Take 1 [facility] en (TYLENOL 8-29 tablet by ity of ARTHRITIS 00:00: mouth [place] PAIN) 650 00 every 8 Medical mg CR (eight) Branch tablet hours as needed for Pain. acetaminoph Yes [id number] 650mg Take 1 [facility] en (TYLENOL 8-29 tablet by ity of ARTHRITIS 00:00: mouth [place] PAIN) 650 00 every 8 Medical mg CR (eight) Branch tablet hours as needed for Pain. acetaminoph Yes [id number] 650mg Take 1 [facility] en (TYLENOL 8-29 tablet by ity of ARTHRITIS 00:00: mouth [place] PAIN) 650 00 every 8 Medical mg CR (eight) Branch tablet hours as needed for Pain. acetaminoph Yes [id number] 650mg Take 1 [facility] en (TYLENOL 8-29 tablet by ity of ARTHRITIS 00:00: mouth [place] PAIN) 650 00 every 8 Medical mg CR (eight) Branch tablet hours as needed for Pain. acetaminoph 2021- No [id number] 650mg Take 1 [facility] en (TYLENOL 8-29 11-26 tablet by it y of ARTHRITIS 00:00: 00:00 mouth [place] PAIN) 650 00 :00 every 8 Medical mg CR (eight) Branch tablet hours as needed for Pain. ondansetron 2021- No [id number] 4mg Take 1 [facility] 4 mg 8-29 10-18 tablet by ity of disintegrat 00:00: 00:00 mouth [place] tablet 00 :00 every 8 Medica l (eight) Branch hours as needed for Nausea and Vomiting (N/V). ketorolac 2021- No [id number] 10mg Take 1 [facility] 10 mg 8-29 10-18 tablet by ity of tablet 00:00: 00:00 mouth [place] 00 :00 every 6 Medical (six) Branch hours as needed for Pain (scale 4-6) or Pain (scale 7-10). metaxalone 2021- No [id number] 800mg Take 1 [facility] (SKELAXIN) 8-29 10-18 tablet by ity of 800 mg 00:00: 00:00 mouth in [place] tablet 00 :00 the Medical morning Branch and 1 tablet at noon and 1 tablet in the evening. ondansetron 2- No [id number] 4mg Take 1 [facility] 4 mg 8-29 10-18 tablet by ity of disintegrat 00:00: 00:00 [place] tablet 00 :00 every 8 Medica l (eight) Branch hours as needed for Nausea and Vomiting (N/V). ketorolac 2022-0 2022- No [id number] 10mg Take 1 [facility] 10 mg 8-29 10-18 tablet by ity of tablet 00:00: 00:00 mouth [place] 00 :00 every 6 Medical (six) Branch hours as needed for Pain (scale 4-6) or Pain (scale 7-10). metaxalone 2022-0 2022- No [id number] 800mg Take 1 [facility] (SKELAXIN) 8-29 10-18 tablet by ity of 800 mg 00:00: 00:00 mouth in [place] tablet 00 :00 the Medical morning Branch and 1 tablet at noon and 1 tablet in the evening. ondansetron 2022-0 2022- No [id number] 4mg Take 1 [facility] 4 mg 8-29 10-18 tablet by ity of disintegrat 00:00: 00:00 mouth [place] tablet 00 :00 every 8 Medica l (eight) Branch hours as needed for Nausea and Vomiting (N/V). ketorolac 2022-0 2- No [id number] 10mg Take 1 [facility] 10 mg 8-29 10-18 tablet by ity of tablet 00:00: 00:00 mouth [place] 00 :00 every 6 Medical (six) Branch hours as needed for Pain (scale 4-6) or Pain (scale 7-10). metaxalone 2022-0 2022- No [id number] 800mg Take 1 [facility] (SKELAXIN) 8-29 10-18 tablet by ity of 800 mg 00:00: 00:00 mouth in [place] tablet 00 :00 the Medical morning Branch and 1 tablet at noon and 1 tablet in the evening. ondansetron 2022-0 2022- No [id number] 4mg Take 1 [facility] 4 mg 8-29 10-18 tablet by ity of disintegrat 00:00: 00:00 mouth [place] tablet 00 :00 every 8 Medica l (eight) Branch hours as needed for Nausea and Vomiting (N/V). ketorolac 2-0 2021- No [id number] 10mg Take 1 [facility] 10 mg 8-29 10-18 tablet by ity of tablet 00:00: 00:00 mouth [place] 00 :00 every 6 Medical (six) Branch hours as needed for Pain (scale 4-6) or Pain (scale 7-10). metaxalone 2021-0 2021- No [id number] 800mg Take 1 [facility] (SKELAXIN) 8-29 10-18 [...] mouth. ity of supp. no.8 15:08: 00:00 [place] (TRAZAMINE 46 :00 Medical ORAL) Branch diphenhydrA 0 Yes 25mg Take 25 mg [facility] MINE 25 mg 12-12 by mouth ity o f capsule 13:03: every 6 [place] 04 (six) Medical hours as Branch needed for Allergies. carbamazepi 0 Yes Take by [facility] vers ne 8-02 mouth. ity of (TEGRETOL 13:03: [place] ORAL) 04 Medical Branch citalopram 2021-0 Yes Take by [facility] ers hydrobromid 802 mouth. ity of e 13:03: [place] (CITALOPRAM 04 Medical ORAL) Branch ALBUTEROL 0 Yes [facility] INHALE 8-02 ity of 13:03: [place] [address] Medical Branch diphenhydrA 0 Yes 25mg Take 25 mg [facility] MINE 25 mg 802 by mouth ity o f capsule 13:03: every 6 [place] [address] (six) Medical hours as Branch needed for Allergies. carbamazepi 0 Yes Take by [facility] vers ne 8-02 mouth. ity of (TEGRETOL 13:03: [place] ORAL) Medical Branch citalopram Yes Take by [facility] ers hydrobromid 8-02 mouth. ity of e 13:03: [place] (CITALOPRAM 04 Medical ORAL) Branch ALBUTEROL Yes [facility] INHALE 8- ity of 13:03: [place] [address] Medical Branch diphenhydrA Yes 25mg Take 25 mg [facility] MINE 25 mg 802 by mouth ity o f capsule 13:03: every 6 [place] [address] (six) Medical hours as Branch needed for Allergies. carbamazepi 0 Yes Take by [facility] vers ne 8-02 mouth. ity of (TEGRETOL 13:03: [place] ORAL) Medical Branch citalopram Yes Take by [facility] ers hydrobromid 8-02 mouth. ity of e 13:03: [place] (CITALOPRAM 04 Medical ORAL) Branch ALBUTEROL Yes [facility] INHALE 8- ity of 13:03: [place] [address] Medical Branch diphenhydrA Yes 25mg Take 25 mg [facility] MINE 25 mg 12-12 by mouth ity o f capsule 13:03: every 6 [place] [address] (six) Medical hours as Branch needed for Allergies. carbamazepi 0 Yes Take by [facility] vers ne 8-02 mouth. ity of (TEGRETOL 13:03: [place] ORAL) 04 Medical Branch citalopram Yes Take by [facility] ers hydrobromid 8-02 mouth. ity of e 13:03: [place] (CITALOPRAM 04 Medical ORAL) Branch ALBUTEROL 0 Yes [facility] INHALE 802 ity of 13:03: [place] [address] Medical Branch diphenhydrA Yes 25mg Take 25 mg [facility] MINE 25 mg 8-02 by mouth ity o f capsule 13:03: every 6 [place] [address] (six) Medical hours as Branch needed for Allergies. carbamazepi 0 Yes Take by [facility] vers ne 8-02 mouth. ity of (TEGRETOL 13:03: [place] ORAL) 04 Medical Branch citalopram Yes Take by [facility] ers hydrobromid 8-02 mouth. ity of e 13:03: [place] (CITALOPRAM 04 Medical ORAL) Branch ALBUTEROL Yes [facility] INHALE 8-02 ity of 13:03: Medical Branch diphenhydrA Yes 25mg Take 25 mg [facility] MINE 25 mg 8-02 by mouth ity o f capsule 13:03: every 6 [place] [address] (six) Medical hours as Branch needed for Allergies. carbamazepi Yes Take by [facility] vers ne 8-02 mouth. ity of (TEGRETOL 13:03: [place] ORAL) Medical Branch citalopram Yes Take by [facility] ers hydrobromid 8-02 mouth. ity of e 13:03: [place] (CITALOPRAM 04 Medical ORAL) Branch ALBUTEROL Yes [facility] INHALE 8-02 ity of 13:03: [place] [address] Medical Branch diphenhydrA Yes 25mg Take 25 mg [facility] MINE 25 mg 8 by mouth ity o f capsule 13:03: every 6 [place] [address] (six) Medical hours as Branch needed for Allergies. carbamazepi Yes Take by [facility] vers ne 8-02 mouth. ity of (TEGRETOL 13:03: [place] ORAL) Medical Branch citalopram Yes Take by [facility] ers hydrobromid 8-02 mouth. ity of e 13:03: [place] (CITALOPRAM 04 Medical ORAL) Branch ALBUTEROL Yes [facility] INHALE 8-02 ity of 13:03: [place] [address] Medical Branch diphenhydrA 0 Yes 25mg Take 25 mg [facility] MINE 25 mg 802 by mouth ity o f capsule 13:03: every 6 [place] [address] (six) Medical hours as Branch needed for Allergies. carbamazepi 0 Yes Take by [facility] vers ne 8-02 mouth. ity of (TEGRETOL 13:03: [place] ORAL) 04 Medical Branch citalopram Yes Take by [facility] ers hydrobromid 8-02 mouth. ity of e 13:03: [place] (CITALOPRAM 04 Medical ORAL) Branch ALBUTEROL Yes [facility] INHALE 802 ity of 13:03: [place] [address] Medical Branch diphenhydrA Yes 25mg Take 25 mg [facility] MINE 25 mg 8-02 by mouth ity o f capsule 13:03: every 6 [place] [address] (six) Medical hours as Branch needed for Allergies. carbamazepi 0 Yes Take by [facility] vers ne 8-02 mouth. ity of (TEGRETOL 13:03: [place] ORAL) Medical Branch citalopram Yes Take by [facility] ers hydrobromid 8-02 mouth. ity of e 13:03: [place] (CITALOPRAM 04 Medical ORAL) Branch ALBUTEROL Yes [facility] INHALE 8 ity of 13:03: [place] [address] Medical Branch diphenhydrA Yes 25mg Take 25 mg [facility] MINE 25 mg 802 by mouth ity o f capsule 13:03: every 6 [place] [address] (six) Medical hours as Branch needed for Allergies. carbamazepi Yes Take by [facility] vers ne 8-02 mouth. ity of (TEGRETOL 13:03: [place] ORAL) Medical Branch citalopram Yes Take by [facility] ers hydrobromid 8-02 mouth. ity of e 13:03: [place] (CITALOPRAM 04 Medical ORAL) Branch ALBUTEROL Yes [facility] INHALE 8 ity of 13:03: [place] [address] Medical Branch diphenhydrA Yes 25mg Take 25 mg [facility] MINE 25 mg 8-02 by mouth ity o f capsule 13:03: every 6 [place] [address] (six) Medical hours as Branch needed for Allergies. carbamazepi 0 Yes Take by [facility] vers ne 8-02 mouth. ity of (TEGRETOL 13:03: [place] ORAL) 04 Medical Branch citalopram Yes Take by [facility] ers hydrobromid 8-02 mouth. ity of e 13:03: [place] (CITALOPRAM 04 Medical ORAL) Branch ALBUTEROL Yes [facility] INHALE 8-02 ity of 13:03: [address] ALBUTEROL Yes [facility] INHALE 8-02 ity of 13:03: [address] ALBUTEROL Yes [facility] INHALE 8-02 ity of 13:03: [address] ALBUTEROL Yes [facility] INHALE 8-02 ity of 13:03: [address] ALBUTEROL Yes [facility] INHALE 8-02 ity of 13:03: [address] ALBUTEROL Yes [facility] INHALE 8-02 ity of 13:03: [address] ALBUTEROL Yes [facility] INHALE 8-02 ity of 13:03: [address] ALBUTEROL Yes [facility] INHALE 8-02 ity of 13:03: [address] ALBUTEROL Yes [facility] INHALE 8-02 ity of 13:03: [address] ALBUTEROL Yes [facility] INHALE 8-02 ity of 13:03: [address] ALBUTEROL Yes [facility] INHALE 8-02 ity of 13:03: [address] ALBUTEROL Yes [facility] INHALE 8-02 ity of 13:03: [address] ALBUTEROL Yes [facility] INHALE 8-02 ity of 13:03: [address] ALBUTEROL Yes [facility] INHALE 8-02 ity of 13:03: [address] ALBUTEROL Yes Univers INHALE 8-02 ity of 13:03: [address] traZODone Yes [id number] 50mg Take 1 U nivers 50 mg 8-02 tablet by ity of tablet 00:00: mouth at [place] 00 bedtime. Medical Branch SERTraline Yes [id number] 50mg Take 1 [facility] (ZOLOFT) 50 8-02 tablet by ity of mg tablet 00:00: mouth [place] 00 the Medical morning. Branch traZODone Yes [id number] 50mg Take 1 U nivers 50 mg 8-02 tablet by ity of tablet 00:00: mouth at [place] 00 bedtime. Medical Branch SERTraline Yes 50mg Take 1 [facility] (ZOLOFT) 50 8-02 tablet by ity of mg tablet 00:00: mouth [place] 00 the Medical morning. Branch traZODone 0 Yes [id number] 50mg Take 1 U nivers 50 mg 8-02 tablet by ity of tablet 00:00: mouth at [place] 00 bedtime. Medical Branch SERTraline 0 Yes 50mg Take 1 [facility] (ZOLOFT) 50 8-02 tablet by ity of mg tablet 00:00: mouth [place] 00 the Medical morning. Branch traZODone 0 Yes [id number] 50mg Take 1 U nivers 50 mg 8-02 tablet by ity of tablet 00:00: mouth at [place] 00 bedtime. Medical Branch SERTraline 0 Yes 50mg Take 1 [facility] (ZOLOFT) 50 8-02 tablet by ity of mg tablet 00:00: mouth [place] 00 the Medical morning. Branch traZODone 0 Yes [id number] 50mg Take 1 U nivers 50 mg 8-02 tablet by ity of tablet 00:00: mouth at [place] 00 bedtime. Medical Branch SERTraline 0 Yes 50mg Take 1 [facility] (ZOLOFT) 50 8-02 tablet by ity of mg tablet 00:00: mouth [place] 00 the Medical morning. Branch traZODone 0 Yes [id number] 50mg Take 1 U nivers 50 mg 8-02 tablet by ity of tablet 00:00: mouth at [place] 00 bedtime. Medical Branch SERTraline 0 Yes [id number] 50mg Take 1 [facility] (ZOLOFT) 50 8-02 tablet by ity of mg tablet 00:00: mouth [place] 00 the Medical morning. Branch traZODone 0 Yes [id number] 50mg Take 1 U nivers 50 mg 8-02 tablet by ity of tablet 00:00: mouth at [place] 00 bedtime. Medical Branch SERTraline Yes [id number] 50mg Take 1 [facility] (ZOLOFT) 50 8-02 tablet by ity of mg tablet 00:00: mouth [place] 00 the Medical morning. Branch traZODone Yes [id number] 50mg Take 1 U nivers 50 mg 8-02 tablet by ity of tablet 00:00: mouth at [place] 00 bedtime. Medical Branch SERTraline Yes [id number] 50mg Take 1 [facility] (ZOLOFT) 50 8-02 tablet by ity of mg tablet 00:00: mouth in [place] 00 the Medical morning. Branch traZODone 0 Yes [id number] 50mg Take 1 U nivers 50 mg 8-02 tablet by ity of tablet 00:00: mouth at [place] 00 bedtime. Medical Branch SERTraline Yes [id number] 50mg Take 1 [facility] (ZOLOFT) 50 8-02 tablet by ity of mg tablet 00:00: mouth [place] 00 the Medical morning. Branch traZODone Yes [id number] 50mg Take 1 U nivers 50 mg 8-02 tablet by ity of tablet 00:00: mouth at [place] 00 bedtime. Medical Branch SERTraline Yes [id number] 50mg Take 1 [facility] (ZOLOFT) 50 8-02 tablet by ity of mg tablet 00:00: mouth [place] 00 the Medical morning. Branch traZODone Yes [id number] 50mg Take 1 U nivers 50 mg 8-02 tablet by ity of tablet 00:00: mouth at [place] 00 bedtime. Medical Branch SERTraline Yes [id number] 50mg Take 1 [facility] (ZOLOFT) 50 8-02 tablet by ity of mg tablet 00:00: mouth [place] 00 the Medical morning. Branch traZODone 2021- No [id number] 50mg Take 1 [facility] 50 mg 8-02 10-18 tablet by ity of tablet 00:00: 00:00 mouth at [place] 00 :00 bedtime. Medical Branch SERTraline 2021- No [id number] 50mg Take 1 [facility] (ZOLOFT) 50 8-02 10-18 tablet by it y of mg tablet 00:00: 00:00 mouth in [place] as 00 :00 the Medical morning. Branch traZODone 2021- No [id number] 50mg Take 1 [facility] 50 mg 8-02 10-18 tablet by ity of tablet 00:00: 00:00 mouth at [place] 00 :00 bedtime. Medical Branch SERTraline 2021- No [id number] 50mg Take 1 [facility] (ZOLOFT) 50 8- 10-18 tablet by it y of mg tablet 00:00: 00:[address] [facility] as 00 :00 the Medical morning. Branch traZODone 2021- No [id number] 50mg Take 1 [facility] 50 mg 8- 10-18 tablet by ity of tablet 00:00: 00:00 mouth at [place] 00 :00 bedtime. Medical Branch SERTraline 2021- No [id number] 50mg Take 1 [facility] (ZOLOFT) 50 8- 10-18 tablet by it y of mg tablet 00:00: 00:[address] [facility] as 00 :00 the Medical morning. Branch traZODone 2021- No [id number] 50mg Take 1 [facility] 50 mg 8- 10-18 tablet by ity of tablet 00:00: 00:00 mouth at [place] 00 :00 bedtime. Medical Branch SERTraline 2021- No [id number] 50mg Take 1 [facility] (ZOLOFT) 50 8- 10-18 tablet by it y of mg tablet 00:00: 00:[address] [facility] as 00 :00 the Medical morning. Branch sulfamethox 2021- No [id number] 1{tbl} Take 1 [facility] azole-trime - 08-06 tablet by it y of thoprim 00:00: 04:59 mouth in [place] (BACTRIM 00 :00 the Medical DS) 800-160 morning Branc h mg per and 1 tablet tablet in the evening. Do all this for 3 days. ibuprofen Yes [id number] 600mg Take 1 [facility] 600 mg 7-15 tablet by ity of tablet 00:00: mouth [place] [address] every 6 Medical (six) Branch hours as needed for Pain (scale 4-6). ibuprofen 0 Yes [id number] 600mg Take 1 [facility] 600 mg 7-15 tablet by ity of tablet 00:00: mouth [place] [address] every 6 Medical (six) Branch hours as needed for Pain (scale 4-6). ibuprofen 2021-0 Yes [id number] 600mg Take 1 [facility] 600 mg 7-15 tablet by ity of tablet 00:00: mouth [place] 00 every 6 Medical (six) Branch hours as needed for Pain (scale 4-6). ibuprofen 2022-0 Yes [id number] 600mg Take 1 [facility] 600 mg 7-15 tablet by ity of tablet 00:00: mouth [place] 00 every 6 Medical (six) Branch hours as needed for Pain (scale 4-6). ibuprofen 2022-0 Yes [id number] 600mg Take 1 [facility] 600 mg 7-15 tablet by ity of tablet 00:00: mouth [place] 00 every 6 Medical (six) Branch hours as needed for Pain (scale 4-6). ibuprofen 2022-0 Yes [id number] 600mg Take 1 [facility] 600 mg 7-15 tablet by ity of tablet 00:00: mouth [place] 00 every 6 Medical (six) Branch hours as needed for Pain (scale 4-6). ibuprofen 2022-0 Yes [id number] 600mg Take 1 [facility] 600 mg 7-15 tablet by ity of tablet 00:00: mouth [place] 00 every 6 Medical (six) Branch hours as needed for Pain (scale 4-6). ibuprofen 2022-0 Yes [id number] 600mg Take 1 [facility] 600 mg 7-15 tablet by ity of tablet 00:00: mouth [place] 00 every 6 Medical (six) Branch hours as needed for Pain (scale 4-6). ibuprofen 2022-0 Yes [id number] 600mg Take 1 [facility] 600 mg 7-15 tablet by ity of tablet 00:00: mouth [place] 00 every 6 Medical (six) Branch hours as needed for Pain (scale 4-6). ibuprofen 2022-0 Yes [id number] 600mg Take 1 [facility] 600 mg 7-15 tablet by ity of tablet 00:00: mouth [place] 00 every 6 Medical (six) Branch hours as needed for Pain (scale 4-6). ibuprofen 2022-0 Yes [id number] 600mg Take 1 [facility] 600 mg 7-15 tablet by ity of tablet 00:00: mouth [place] 00 every 6 Medical (six) Branch hours as needed for Pain (scale 4-6). ibuprofen 2022-0 2022- No [id number] 600mg Take 1 [facility] 600 mg 7-15 10-18 tablet by ity of tablet 00:00: 00:00 mouth [place] 00 :00 every 6 Medical (six) Branch hours as needed for Pain (scale 4-6). ibuprofen 2021-2021- No [id number] 600mg Take 1 [facility] 600 mg 7-15 10-18 tablet by ity of tablet 00:00: 00:00 mouth [place] 00 :00 every 6 Medical (six) Branch hours as needed for Pain (scale 4-6). ibuprofen 2021-2021- No [id number] 600mg Take 1 [facility] 600 mg 7-15 10-18 tablet by ity of tablet 00:00: 00:00 mouth [place] 00 :00 every 6 Medical (six) Branch hours as needed for Pain (scale 4-6). ibuprofen 2021-2021- No [id number] 600mg Take 1 [facility] 600 mg 7-15 10-18 tablet by ity of tablet 00:00: 00:00 mouth [place] 00 :00 every 6 Medical (six) Branch hours as needed for Pain (scale 4-6). ibuprofen 2021-2021- No [id number] 600mg Take 1 [facility] 600 mg 7-15 [...] Indication s: acute pain bromphenira 2021-0 Yes [id number] 5mL Take 5 mL [facility] mine-pseudo 11-18 by mouth 4 it y of ephedrine-D 00:00: (four) [place] (BROMFED 00 times Medical DM) 2-30-10 daily as Bran ch mg/5 mL needed for syrup Congestion /Allergies or Cough. naproxen 2022-0 Yes [id number] 500mg Take 1 [facility] n[facility] 500 mg 7-09 tablet by ity of tablet 00:00: mouth [place] 00 every 8 Medical (eight) Branch hours as needed for Pain (scale 4-6). cyclobenzap 2021-0 Yes [id number] 10mg Take 1 [facility] rine 10 mg 7-09 tablet by ity of tablet 00:00: mouth at [place] 00 bedtime as Medical needed for Branch Muscle Spasms. bromphenira 202-0 Yes [id number] 5mL Take 5 mL [facility] mine-pseudo 7-09 by mouth 4 it y of ephedrine-D 00:00: (four) [place] (BROMFED 00 times Medical DM) 2-30-10 daily as Bran ch mg/5 mL needed for syrup Congestion /Allergies or Cough. naproxen 2021-0 Yes [id number] 500mg Take 1 [facility] n[facility] 500 mg 7-09 tablet by ity of tablet 00:00: mouth [place] 00 every 8 Medical (eight) Branch hours as needed for Pain (scale 4-6). cyclobenzap 2021-0 Yes [id number] 10mg Take 1 [facility] rine 10 mg 7-09 tablet by ity of tablet 00:00: mouth at [place] 00 bedtime as Medical needed for Branch Muscle Spasms. bromphenira 2021-0 Yes [id number] 5mL Take 5 mL [facility] mine-pseudo 7-09 by mouth 4 it y of ephedrine-D 00:00: (four) [place] (BROMFED 00 times Medical DM) 2-30-10 daily as Bran ch mg/5 mL needed for syrup Congestion /Allergies or Cough. naproxen 2-0 Yes [id number] 500mg Take 1 [facility] n[facility] 500 mg 7-09 tablet by ity of tablet 00:00: mouth [place] 00 every 8 Medical (eight) Branch hours as needed for Pain (scale 4-6). cyclobenzap 2022-0 Yes [id number] 10mg Take 1 [facility] rine 10 mg 7-09 tablet by ity of tablet 00:00: mouth at [place] 00 bedtime as Medical needed for Branch Muscle Spasms. bromphenira 2022-0 Yes [id number] 5mL Take 5 mL [facility] mine-pseudo 7-09 by mouth 4 it y of ephedrine-D 00:00: (four) [place] (BROMFED 00 times Medical DM) 2-30-10 daily as Bran ch mg/5 mL needed for syrup Congestion /Allergies or Cough. naproxen 2022-0 Yes [id number] 500mg Take 1 [facility] 500 mg 7-09 tablet by ity of tablet 00:00: mouth [place] 00 every 8 Medical (eight) Branch hours as needed for Pain (scale 4-6). cyclobenzap 2-0 Yes [id number] 10mg Take 1 [facility] rine 10 mg 7-09 tablet by ity of tablet 00:00: mouth at [place] 00 bedtime as Medical needed for Branch Muscle Spasms. bromphenira 2-0 Yes [id number] 5mL Take 5 mL [facility] mine-pseudo 7-09 by mouth 4 it y of ephedrine-D 00:00: (four) [place] (BROMFED 00 times Medical DM) 2-30-10 daily as Bran ch mg/5 mL needed for syrup Congestion /Allergies or Cough. naproxen 2-0 Yes [id number] 500mg Take 1 [facility] 500 mg 7-09 tablet by ity of tablet 00:00: mouth [place] 00 every 8 Medical (eight) Branch hours as needed for Pain (scale 4-6). cyclobenzap 2021-0 Yes [id number] 10mg Take 1 [facility] rine 10 mg 7-09 tablet by ity of tablet 00:00: mouth at [place] 00 bedtime as Medical needed for Branch Muscle Spasms. bromphenira 2-0 Yes [id number] 5mL Take 5 mL [facility] mine-pseudo 7-09 by mouth 4 it y of ephedrine-D 00:00: (four) [place] (BROMFED 00 times Medical DM) 2-30-10 daily as Bran ch mg/5 mL needed for syrup Congestion /Allergies or Cough. naproxen 2022-0 Yes [id number] 500mg Take 1 [facility] 500 mg 7-09 tablet by ity of tablet 00:00: mouth [place] 00 every 8 Medical (eight) Branch hours as needed for Pain (scale 4-6). cyclobenzap 2022-0 Yes [id number] 10mg Take 1 [facility] rine 10 mg 7-09 tablet by ity of tablet 00:00: mouth at [place] 00 bedtime as Medical needed for Branch Muscle Spasms. bromphenira 2021-0 Yes [id number] 5mL Take 5 mL [facility] mine-pseudo 7-09 by mouth 4 it y of ephedrine-D 00:00: (four) [place] (BROMFED 00 times Medical DM) 2-30-10 daily as Bran ch mg/5 mL needed for syrup Congestion /Allergies or Cough. naproxen 2021-0 Yes [id number] 500mg Take 1 [facility] 500 mg 7-09 tablet by ity of tablet 00:00: mouth [place] 00 every 8 Medical (eight) Branch hours as needed for Pain (scale 4-6). cyclobenzap 2021-0 Yes [id number] 10mg Take 1 [facility] rine 10 mg 7-09 tablet by ity of tablet 00:00: mouth at [place] 00 bedtime as Medical needed for Branch Muscle Spasms. bromphenira 2021-0 Yes [id number] 5mL Take 5 mL [facility] mine-pseudo 7-09 by mouth 4 it y of ephedrine-D 00:00: (four) [place] (BROMFED 00 times Medical DM) 2-30-10 daily as Bran ch mg/5 mL needed for syrup Congestion /Allergies or Cough. naproxen 2021-0 Yes [id number] 500mg Take 1 [facility] n[facility] 500 mg 7-09 tablet by ity of tablet 00:00: mouth [place] 00 every 8 Medical (eight) Branch hours as needed for Pain (scale 4-6). cyclobenzap 2-0 Yes [id number] 10mg Take 1 [facility] rine 10 mg 7-09 tablet by ity of tablet 00:00: mouth at [place] 00 bedtime as Medical needed for Branch Muscle Spasms. bromphenira 2-0 Yes [id number] 5mL Take 5 mL [facility] mine-pseudo 7-09 by mouth 4 it y of ephedrine-D 00:00: (four) [place] (BROMFED 00 times Medical DM) 2-30-10 daily as Bran ch mg/5 mL needed for syrup Congestion /Allergies or Cough. naproxen 2-0 Yes [id number] 500mg Take 1 [facility] 500 mg 7-09 tablet by ity of tablet 00:00: mouth [place] 00 every 8 Medical (eight) Branch hours as needed for Pain (scale 4-6). cyclobenzap 2021-0 Yes [id number] 10mg Take 1 [facility] rine 10 mg 7-09 tablet by ity of tablet 00:00: mouth at [place] 00 bedtime as Medical needed for Branch Muscle Spasms. bromphenira 2021-0 Yes [id number] 5mL Take 5 mL [facility] mine-pseudo 7-09 by mouth 4 it y of ephedrine-D 00:00: (four) [place] (BROMFED 00 times Medical DM) 2-30-10 daily as Bran ch mg/5 mL needed for syrup Congestion /Allergies or Cough. naproxen 2021-0 Yes [id number] 500mg Take 1 [facility] 500 mg 7-09 tablet by ity of tablet 00:00: mouth [place] 00 every 8 Medical (eight) Branch hours as needed for Pain (scale 4-6). cyclobenzap 2021-0 Yes [id number] 10mg Take 1 [facility] rine 10 mg 7-09 tablet by ity of tablet 00:00: mouth at [place] 00 bedtime as Medical needed for Branch Muscle Spasms. bromphenira 2021-0 Yes [id number] 5mL Take 5 mL [facility] mine-pseudo 7-09 by mouth 4 it y of ephedrine-D 00:00: (four) [place] (BROMFED 00 times Medical DM) 2-30-10 daily as Bran ch mg/5 mL needed for syrup Congestion /Allergies or Cough. naproxen 2-0 Yes [id number] 500mg Take 1 [facility] 500 mg 7-09 tablet by ity of tablet 00:00: mouth [place] 00 every 8 Medical (eight) Branch hours as needed for Pain (scale 4-6). cyclobenzap 2-0 Yes [id number] 10mg Take 1 [facility] rine 10 mg 7-09 tablet by ity of tablet 00:00: mouth at [place] 00 bedtime as Medical needed for Branch Muscle Spasms. bromphenira 2022-0 Yes [id number] 5mL Take 5 mL [facility] mine-pseudo 7-09 by mouth 4 it y of ephedrine-D 00:00: (four) [place] (BROMFED 00 times Medical DM) 2-30-10 daily as Bran ch mg/5 mL needed for syrup Congestion /Allergies or Cough. bromphenira 2022-0 Yes [id number] 5mL Take 5 mL [facility] mine-pseudo 7-09 by mouth 4 it y of ephedrine-D 00:00: (four) [place] (BROMFED 00 times Medical DM) 2-30-10 daily as Bran ch mg/5 mL needed for syrup Congestion /Allergies or Cough. bromphenira 2022-0 Yes [id number] 5mL Take 5 mL [facility] mine-pseudo 7-09 by mouth 4 it y of ephedrine-D 00:00: (four) [place] (BROMFED 00 times Medical DM) 2-30-10 daily as Bran ch mg/5 mL needed for syrup Congestion /Allergies or Cough. bromphenira 2-0 Yes [id number] 5mL Take 5 mL [facility] mine-pseudo 7-09 by mouth 4 it y of ephedrine-D 00:00: (four) [place] (BROMFED 00 times Medical DM) 2-30-10 daily as Bran ch mg/5 mL needed for syrup Congestion /Allergies or Cough. bromphenira 2-0 Yes [id number] 5mL Take 5 mL [facility] mine-pseudo 7-09 by mouth 4 it y of ephedrine-D 00:00: (four) [place] (BROMFED 00 times Medical DM) 2-30-10 daily as Bran ch mg/5 mL needed for syrup Congestion /Allergies or Cough. bromphenira 2-0 Yes [id number] 5mL Take 5 mL [facility] mine-pseudo 7-09 by mouth 4 it y of ephedrine-D 00:00: (four) [place] (BROMFED 00 times Medical DM) 2-30-10 daily as Bran ch mg/5 mL needed for syrup Congestion /Allergies or Cough. bromphenira 2-0 Yes [id number] 5mL Take 5 mL [facility] mine-pseudo 7-09 by mouth 4 it y of ephedrine-D 00:00: (four) [place] (BROMFED 00 times Medical DM) 2-30-10 daily as Bran ch mg/5 mL needed for syrup Congestion /Allergies or Cough. bromphenira 2022-0 Yes [id number] 5mL Take 5 mL [facility] mine-pseudo 7-09 by mouth 4 it y of ephedrine-D 00:00: (four) [place] (BROMFED 00 times Medical DM) 2-30-10 daily as Bran ch mg/5 mL needed for syrup Congestion /Allergies or Cough. bromphenira 2021-0 Yes [id number] 5mL Take 5 mL [facility] mine-pseudo 7-09 by mouth 4 it y of ephedrine-D 00:00: (four) [place] (BROMFED 00 times Medical DM) 2-30-10 daily as Bran ch mg/5 mL needed for syrup Congestion /Allergies or Cough. bromphenira 2021-0 Yes [id number] 5mL Take 5 mL [facility] mine-pseudo 7-09 by mouth 4 it y of ephedrine-D 00:00: (four) [place] (BROMFED 00 times Medical DM) 2-30-10 daily as Bran ch mg/5 mL needed for syrup Congestion /Allergies or Cough. bromphenira 2021-0 Yes [id number] 5mL Take 5 mL [facility] mine-pseudo 7-09 by mouth 4 it y of ephedrine-D 00:00: (four) [place] (BROMFED 00 times Medical DM) 2-30-10 daily as Bran ch mg/5 mL needed for syrup Congestion /Allergies or Cough. bromphenira 2021-0 Yes [id number] 5mL Take 5 mL [facility] mine-pseudo 7-09 by mouth 4 it y of ephedrine-D 00:00: (four) [place] (BROMFED 00 times Medical DM) 2-30-10 daily as Bran ch mg/5 mL needed for syrup Congestion /Allergies or Cough. bromphenira 2021-0 Yes [id number] 5mL Take 5 mL [facility] mine-pseudo 7-09 by mouth 4 it y of ephedrine-D 00:00: (four) [place] (BROMFED 00 times Medical DM) 2-30-10 daily as Bran ch mg/5 mL needed for syrup Congestion /Allergies or Cough. bromphenira 202-0 Yes [id number] 5mL Take 5 mL [facility] mine-pseudo 7-09 by mouth 4 it y of ephedrine-D 00:00: (four) [place] (BROMFED 00 times Medical DM) 2-30-10 daily as Bran ch mg/5 mL needed for syrup Congestion /Allergies or Cough. bromphenira 2021- No [id number] 5mL Take 5 mL [facility] mine-pseudo 11-1812 by mouth 4 i ty of ephedrine-D 00:00: 00:00 (four) [place] (BROMFED 00 :00 times Medical DM) 2-30-10 daily as Bran ch mg/5 mL needed for syrup Congestion /Allergies or Cough. bromphenira 2021- No [id number] 5mL Take 5 mL [facility] mine-pseudo 11-18 by mouth 4 i ty of ephedrine-D 00:00: 00:00 (four) [place] (BROMFED 00 :00 times Medical DM) 2-30-10 daily as Bran ch mg/5 mL needed for syrup Congestion /Allergies or Cough. naproxen No [id number] 500mg Take 1 [facility] 500 mg 7- 10-18 tablet by ity of tablet 00:00: 00:00 mouth [place] 00 :00 every 8 Medical (eight) Branch hours as needed for Pain (scale 4-6). cyclobenzap No [id number] 10mg Take 1 [facility] rine 10 mg 7- 10-18 tablet by ity of tablet 00:00: 00:00 mouth at [place] 00 :00 bedtime as Medical needed for Branch Muscle Spasms. naproxen No [id number] 500mg Take 1 [facility] 500 mg 7- 10-18 tablet by ity of tablet 00:00: 00:00 mouth [place] 00 :00 every 8 Medical (eight) Branch hours as needed for Pain (scale 4-6). cyclobenzap No [id number] 10mg Take 1 [facility] rine 10 mg 7- 10-18 tablet by ity of tablet 00:00: 00:00 mouth at [place] 00 :00 bedtime as Medical needed for Branch Muscle Spasms. naproxen No [id number] 500mg Take 1 [facility] 500 mg 7-09 10-18 tablet by ity of tablet 00:00: 00:00 mouth [place] 00 :00 every 8 Medical (eight) Branch hours as needed for Pain (scale 4-6). cyclobenzap No [id number] 10mg Take 1 [facility] rine 10 mg 7- 10-18 tablet by ity of tablet 00:00: 00:00 mouth at [place] 00 :00 bedtime as Medical needed for Branch Muscle Spasms. naproxen 2021- No [id number] 500mg Take 1 [facility] 500 mg 7- 10-18 tablet by ity of tablet 00:00: 00:00 mouth [place] 00 :00 every 8 Medical (eight) Branch hours as needed for Pain (scale 4-6). cyclobenzap No [id number] 10mg Take 1 [facility] rine 10 mg 7- 10-18 tablet by ity of tablet 00:00: 00:00 mouth at [place] 00 :00 bedtime as Medical needed for Branch Muscle Spasms. naproxen 2021- No [id number] 500mg Take 1 [facility] 500 mg 7- 10-18 tablet by ity of tablet 00:00: 00:00 mouth [place] 00 :00 every 8 Medical (eight) Branch hours as needed for Pain (scale 4-6). cyclobenzap No [id number] 10mg Take 1 [facility] rine 10 mg 7- 10-18 tablet by ity of tablet 00:00: 00:00 mouth at [place] 00 :00 bedtime as Medical needed for Branch Muscle Spasms. ibuprofen Yes [id number] 605mg Take 30.25 [facility] 100 mg/5 mL 6-15 mL by ity of oral 00:00: mouth [place] suspension 00 every 6 Medica l (six) Branch hours as needed for Pain (scale 4-6) or Temp > 38.5 C. ibuprofen Yes [id number] 605mg Take 30.25 [facility] 100 mg/5 mL 6-15 mL by ity of oral 00:00: mouth [place] suspension 00 every 6 Medica l (six) Branch hours as needed for Pain (scale 4-6) or Temp > 38.5 C. ibuprofen Yes [id number] 605mg Take 30.25 [facility] 100 mg/5 mL 6-15 mL by ity of oral 00:00: mouth [place] suspension 00 every 6 Medica l (six) Branch hours as needed for Pain (scale 4-6) or Temp > 38.5 C. ibuprofen 2021-0 Yes [id number] 605mg Take 30.25 [facility] 100 mg/5 mL 6-15 mL by ity of oral 00:00: mouth [place] suspension 00 every 6 Medica l (six) Branch hours as needed for Pain (scale 4-6) or Temp > 38.5 C. ibuprofen 2021-0 Yes [id number] 605mg Take 30.25 [facility] 100 mg/5 mL 6-15 mL by ity of oral 00:00: mouth [place] suspension 00 every 6 Medica l (six) Branch hours as needed for Pain (scale 4-6) or Temp > 38.5 C. ibuprofen 2021-0 Yes [id number] 605mg Take 30.25 [facility] 100 mg/5 mL 6-15 mL by ity of oral 00:00: mouth [place] suspension 00 every 6 Medica l (six) Branch hours as needed for Pain (scale 4-6) or Temp > 38.5 C. ibuprofen 2021-0 Yes [id number] 605mg Take 30.25 [facility] 100 mg/5 mL 6-15 mL by ity of oral 00:00: mouth [place] suspension 00 every 6 Medica l (six) Branch hours as needed for Pain (scale 4-6) or Temp > 38.5 C. ibuprofen 2021-0 Yes [id number] 605mg Take 30.25 [facility] 100 mg/5 mL 6-15 mL by ity of oral 00:00: mouth [place] suspension 00 every 6 Medica l (six) Branch hours as needed for Pain (scale 4-6) or Temp > 38.5 C. ibuprofen 2021-0 Yes [id number] 605mg Take 30.25 [facility] 100 mg/5 mL 6-15 mL by ity of oral 00:00: mouth [place] suspension 00 every 6 Medica l (six) Branch hours as needed for Pain (scale 4-6) or Temp > 38.5 C. ibuprofen 2021-0 Yes [id number] 605mg Take 30.25 [facility] 100 mg/5 mL 6-15 mL by ity of oral 00:00: mouth [place] suspension 00 every 6 Medica l (six) Branch hours as needed for Pain (scale 4-6) or Temp > 38.5 C. ibuprofen 202-0 Yes [id number] 605mg Take 30.25 [facility] 100 mg/5 mL 6-15 mL by ity of oral 00:00: mouth [place] suspension 00 every 6 Medica l (six) Branch hours as needed for Pain (scale 4-6) or Temp > 38.5 C. ibuprofen 2021- No [id number] 605mg Take 30.25 [facility] 100 mg/5 mL 6-15 10-18 mL by ity of oral 00:00: 00:00 mouth [place] suspension 00 :00 every 6 Medica l (six) Branch hours as needed for Pain (scale 4-6) or Temp > 38.5 C. ibuprofen 2021- No [id number] 605mg Take 30.25 [facility] 100 mg/5 mL 6-15 10-18 mL by ity of oral 00:00: 00:00 mouth [place] suspension 00 :00 every 6 Medica l (six) Branch hours as needed for Pain (scale 4-6) or Temp > 38.5 C. ibuprofen 2021- No [id number] 605mg Take 30.25 [facility] 100 mg/5 mL 6-15 10-18 mL by ity of oral 00:00: 00:00 mouth [place] suspension 00 :00 every 6 Medica l (six) Branch hours as needed for Pain (scale 4-6) or Temp > 38.5 C. ibuprofen 2021- No [id number] 605mg Take 30.25 [facility] 100 mg/5 mL 6-15 10-18 mL by ity of oral 00:00: 00:00 mouth [place] suspension 00 :00 every 6 Medica l (six) Branch hours as needed for Pain (scale 4-6) or Temp > 38.5 C. ibuprofen 2021- No [id number] 605mg Take 30.25 [facility] 100 mg/5 mL 6-15 10-18 mL by ity of oral 00:00: 00:00 mouth [place] suspension 00 :00 every 6 Medica l (six) Branch hours as needed for Pain (scale 4-6) or Temp > 38.5 C. acetaminoph 2021-2021- No [id number] 608mg Take 19 mL [facility] en 160 mg/5 6-15 08- by mouth ity of mL liquid 00:00: 00:00 every 6 [place] 00 :00 (six) Medical hours as Branch needed for Fever. acetaminoph 2021-0 2- No [id number] 608mg Take 19 mL [facility] en 160 mg/5 6-15 - by mouth ity of mL liquid 00:00: 00:00 every 6 [place] 00 :00 (six) Medical hours as Branch needed for Fever. DULoxetine 2021-0 Yes [facility] 60 mg 5-27 ity of capsule 00:00: [place] 00 Medical Branch DULoxetine 2022-0 Yes [facility] 60 mg 5-27 ity of capsule 00:00: [place] [address] Medical Branch DULoxetine 2-0 Yes [facility] 60 mg 5-27 ity of capsule 00:00: [place] [address] Medical Branch DULoxetine 2-0 Yes [facility] 60 mg 5-27 ity of capsule 00:00: [place] [address] Medical Branch DULoxetine 2022-0 Yes [facility] 60 mg 5-27 ity of capsule 00:00: [place] [address] Medical Branch DULoxetine 2-0 Yes [facility] 60 mg 5-27 ity of capsule 00:00: [place] [address] Medical Branch DULoxetine 2-0 Yes [facility] 60 mg 5-27 ity of capsule 00:00: [place] 00 Medical Branch DULoxetine 2-0 Yes [facility] 60 mg 5-27 ity of capsule 00:00: [place] [address] Medical Branch DULoxetine 2-0 Yes [facility] 60 mg 5-27 ity of capsule 00:00: [place] [address] Medical Branch DULoxetine 2-0 Yes [facility] 60 mg 5-27 ity of capsule 00:00: [place] [address] Medical Branch DULoxetine 2022-0 Yes [facility] 60 mg 5-27 ity of capsule 00:00: [place] 00 Medical Branch DULoxetine 2-0 2022- No Un[facility] s 60 mg 5-27 10-18 ity of capsule 00:00: 00:00 [place] 00 :00 Medical Branch DULoxetine 2022-0 2022- No Univer s 60 mg 5-27 10-18 ity of capsule 00:00: 00:00 [place] 00 :00 Medical Branch DULoxetine 2022-0 2022- No Univer s 60 mg 5-27 10-18 ity of capsule 00:00: 00:00 [place] 00 :00 Medical Branch DULoxetine 2-0 2022- No Univer s 60 mg 5-27 10-18 ity of capsule 00:00: 00:00 [place] 00 :00 Medical Branch traZODone 0 2021- No [facility] 50 mg 5-27 12-12 ity of tablet 00:00: 00:00 [place] 00 :00 Medical Branch mometasone 2021-0 Yes [id number] 1{spray Use 1 [facility] 50 5-19 } [place] in ity of mcg/actuati 00:00: each [place] on nasal 00 nostril 2 Medica l spray (two) Branch times daily. mometasone 2021-0 Yes [id number] 1{spray Use 1 [facility] 50 5-19 } [place] in ity of mcg/actuati 00:00: each [place] on nasal 00 nostril 2 Medica l spray (two) Branch times daily. mometasone 2021-0 Yes [id number] 1{spray Use 1 [facility] 50 5-19 } [place] in ity of mcg/actuati 00:00: each [place] on nasal 00 nostril 2 Medica l spray (two) Branch times daily. mometasone 2021-0 Yes [id number] 1{spray Use 1 [facility] 50 5-19 } [place] in ity of mcg/actuati 00:00: each [place] on nasal 00 nostril 2 Medica l spray (two) Branch times daily. mometasone 2021-0 Yes [id number] 1{spray Use 1 [facility] 50 5-19 } [place] in ity of mcg/actuati 00:00: each [place] on nasal 00 nostril 2 Medica l spray (two) Branch times daily. mometasone 2021-0 Yes [id number] 1{spray Use 1 [facility] 50 5-19 } [place] in ity of mcg/actuati 00:00: each [place] on nasal 00 nostril 2 Medica l spray (two) Branch times daily. mometasone 2021-0 Yes [id number] 1{spray Use 1 [facility] 50 5-19 } [place] in ity of mcg/actuati 00:00: each [place] on nasal 00 nostril 2 Medica l spray (two) Branch times daily. mometasone 2021-0 Yes [id number] 1{spray Use 1 [facility] 50 5-19 } [place] in ity of mcg/actuati 00:00: each [place] on nasal 00 nostril 2 Medica l spray (two) Branch times daily. mometasone Yes [id number] 1{spray Use 1 [facility] 50 5-19 } [place] in ity of mcg/actuati 00:00: each [place] on nasal 00 nostril 2 Medica l spray (two) Branch times daily. mometasone Yes [id number] 1{spray Use 1 [facility] 50 5-19 } [place] in ity of mcg/actuati 00:00: each [place] on nasal 00 nostril 2 Medica l spray (two) Branch times daily. mometasone Yes [id number] 1{spray Use 1 [facility] 50 5-19 } [place] in ity of mcg/actuati 00:00: each [place] on nasal 00 nostril 2 Medica l spray (two) Branch times daily. mometasone 2021- No [id number] 1{spray Use 1 [facility] 50 5-19 10-18 } [place] in ity of mcg/actuati 00:00: 00:00 each [place] on nasal 00 :00 nostril 2 Medica l spray (two) Branch times daily. mometasone 2021- No [id number] 1{spray Use 1 [facility] 50 5-19 10-18 } [place] in ity of mcg/actuati 00:00: 00:00 each [place] on nasal 00 :00 nostril 2 Medica l spray (two) Branch times daily. mometasone 2021- No [id number] 1{spray Use 1 [facility] 50 5-19 10-18 } [place] in ity of mcg/actuati 00:00: 00:00 each [place] on nasal 00 :00 nostril 2 Medica l spray (two) Branch times daily. mometasone 2021- No [id number] 1{spray Use 1 [facility] 50 5-19 10-18 } [place] in ity of mcg/actuati 00:00: 00:00 each [place] on nasal 00 :00 nostril 2 Medica l spray (two) Branch times daily. mometasone 2021- No [id number] 1{spray Use 1 [facility] 50 5-19 10-18 } [place] in ity of mcg/actuati 00:00: 00:00 each [place] on nasal 00 :00 nostril 2 Medica l spray (two) Branch times daily. cetirizine Yes [id number] 10mg Take 1 U nivers (ZYRTEC) 10 5-16 tablet by ity of mg tablet 00:00: mouth [place] 00 daily. [facility] Branch cetirizine Yes [id number] 10mg Take 1 U nivers (ZYRTEC) 10 5-16 tablet by ity of mg tablet 00:00: mouth [place] 00 daily. [facility] Branch cetirizine Yes [id number] 10mg Take 1 U nivers (ZYRTEC) 10 5-16 tablet by ity of mg tablet 00:00: mouth [place] 00 daily. [facility] Branch cetirizine Yes [id number] 10mg Take 1 U nivers (ZYRTEC) 10 5-16 tablet by ity of mg tablet 00:00: mouth [place] 00 daily. [facility] Branch cetirizine Yes [id number] 10mg Take 1 U nivers (ZYRTEC) 10 5-16 tablet by ity of mg tablet 00:00: mouth [place] 00 daily. [facility] Branch cetirizine Yes [id number] 10mg Take 1 U nivers (ZYRTEC) 10 5-16 tablet by ity of mg tablet 00:00: mouth [place] 00 daily. [facility] Branch cetirizine Yes [id number] 10mg Take 1 U nivers (ZYRTEC) 10 5-16 tablet by ity of mg tablet 00:00: mouth [place] 00 daily. [facility] Branch cetirizine Yes [id number] 10mg Take 1 U nivers (ZYRTEC) 10 5-16 tablet by ity of mg tablet 00:00: mouth [place] 00 daily. [facility] Branch cetirizine Yes [id number] 10mg Take 1 U nivers (ZYRTEC) 10 5-16 tablet by ity of mg tablet 00:00: mouth [place] 00 daily. [facility] Branch cetirizine Yes [id number] 10mg Take 1 U nivers (ZYRTEC) 10 5-16 tablet by ity of mg tablet 00:00: mouth [place] 00 daily. [facility] Branch cetirizine Yes [id number] 10mg Take 1 U nivers (ZYRTEC) 10 5-16 tablet by ity of mg tablet 00:00: mouth [place] 00 daily. Medical Branch cetirizine 2021- No [id number] 10mg Take 1 [facility] (ZYRTEC) 10 5-16 10-18 tablet by it y of mg tablet 00:00: 00:00 mouth [place] 00 :00 daily. Medical Branch cetirizine 2- No [id number] 10mg Take 1 [facility] (ZYRTEC) 10 5-16 10-18 tablet by it y of mg tablet 00:00: 00:00 mouth [place] 00 :00 daily. Medical Branch cetirizine 2021- No [id number] 10mg Take 1 [facility] (ZYRTEC) 10 5-16 10-18 tablet by it y of mg tablet 00:00: 00:00 mouth [place] 00 :00 daily. Medical Branch cetirizine 2021- No [id number] 10mg Take 1 [facility] (ZYRTEC) 10 5-16 10-18 tablet by it y of mg tablet 00:00: 00:00 mouth [place] 00 :00 daily. Medical Branch cetirizine 2021- No [id number] 10mg Take 1 [facility] (ZYRTEC) 10 5-16 10-18 tablet by it y of mg tablet 00:00: 00:00 mouth [place] 00 :00 daily. Medical Branch DULoxetine 2-0 Yes [facility] 30 mg 5-09 ity of capsule 00:00: [place] 00 Medical Branch gabapentin 2022-0 Yes [facility] 300 mg 5-09 ity of capsule 00:00: 00 Medical Branch ondansetron 2-0 Yes Univer s 4 mg tablet 5-09 ity of 00:00: 00 Medical Branch DULoxetine 2022-0 Yes [facility] 30 mg 5-09 ity of capsule 00:00: [place] 00 Medical Branch gabapentin 2022-0 Yes [facility] 300 mg 5-09 ity of capsule 00:00: 00 Medical Branch ondansetron 2-0 Yes Univer s 4 mg tablet 5-09 ity of 00:00: [place] 00 Medical Branch DULoxetine 2022-0 Yes [facility] 30 mg 5-09 ity of capsule 00:00: [place] 00 Medical Branch gabapentin 2022-0 Yes [facility] 300 mg 5-09 ity of capsule 00:00: [place] 00 Medical Branch ondansetron 2022-0 Yes Univer s 4 mg tablet 5-09 ity of 00:00: [place] 00 Medical Branch DULoxetine 2022-0 Yes [facility] 30 mg 5-09 ity of capsule 00:00: [place] 00 Medical Branch gabapentin 2022-0 Yes [facility] 300 mg 5-09 ity of capsule 00:00: [place] 00 Medical Branch ondansetron 2022-0 Yes Univer s 4 mg tablet 5-09 ity of 00:00: [place] 00 Medical Branch DULoxetine 2022-0 Yes [facility] 30 mg 5-09 ity of capsule 00:00: [place] 00 Medical Branch gabapentin 2022-0 Yes [facility] 300 mg 5-09 ity of capsule 00:00: [place] 00 Medical Branch ondansetron 2022-0 Yes Univer s 4 mg tablet 5-09 ity of 00:00: [place] [facility] DULoxetine 2022-0 Yes [facility] 30 mg 5-09 ity of capsule 00:00: [place] 00 [facility] gabapentin 2022-0 Yes [facility] 300 mg 5-09 ity of capsule 00:00: [place] 00 [facility] ondansetron 2022-0 Yes Univer s 4 mg tablet 5-09 ity of 00:00: [place] [id number] [facility] Branch DULoxetine 2022-0 Yes [facility] 30 mg 5-09 ity of capsule 00:00: [place] 00 [facility] gabapentin 2022-0 Yes [facility] 300 mg 5-09 ity of capsule 00:00: [place] 00 [facility] ondansetron 2022-0 Yes Univer s 4 mg tablet 5-09 ity of 00:00: [place] 00 [facility] DULoxetine 2022-0 Yes [facility] 30 mg 5-09 ity of capsule 00:00: [place] 00 [facility] gabapentin 2022-0 Yes [facility] 300 mg 5-09 ity of capsule 00:00: [place] 00 [facility] ondansetron 2022-0 Yes Univer s 4 mg tablet 5-09 ity of 00:00: [place] 00 [facility] DULoxetine 2022-0 Yes [facility] 30 mg 5-09 ity of capsule 00:00: [place] 00 [facility] gabapentin 2022-0 Yes [facility] 300 mg 5-09 ity of capsule 00:00: [place] 00 [facility] ondansetron 2022-0 Yes Univer s 4 mg tablet 5-09 ity of 00:00: [place] 00 [facility] DULoxetine 2022-0 Yes [facility] 30 mg - ity of capsule 00:00: [place] 00 [facility] gabapentin 2022-0 Yes [facility] 300 mg - ity of capsule 00:00: [place] 00 [facility] ondansetron 2022-0 Yes Univer s 4 mg tablet 09-18 ity of 00:00: [place] 00 [facility] DULoxetine 2022-0 Yes [facility] 30 mg - ity of capsule 00:00: [place] 00 [facility] gabapentin 2022-0 Yes [facility] 300 mg 09-18 ity of capsule 00:00: [place] 00 [facility] ondansetron 2022-0 Yes Univer s 4 mg tablet 09-18 ity of 00:00: [place] 00 [facility] DULoxetine 2022-0 2022- No Univer s 30 mg 09-18 ity of capsule 00:00: 00:00 [place] 00 :00 [facility] gabapentin 2022-0 2022- No Univer s 300 mg 09-18 ity of capsule 00:00: 00:00 [place] 00 :00 [facility] Branch ondansetron 2022-0 2022- No Unive rs 4 mg tablet 09-18 ity of 00:00: 00:00 [place] 00 :00 [facility] Branch DULoxetine 2022-0 2022- No Univer s 30 mg 09-18 ity of capsule 00:00: 00:00 [place] 00 :00 [facility] gabapentin 2022-0 2022- No Univer s 300 mg 09-18 ity of capsule 00:00: 00:00 [place] 00 :00 [facility] Branch ondansetron 2022-0 2022- No Unive rs 4 mg tablet 09-18 ity of 00:00: 00:00 [place] 00 :00 [facility] DULoxetine 2022-0 2022- No Univer s 30 mg 09-18- ity of capsule 00:00: 00:00 [place] 00 :00 [facility] gabapentin 2022-0 2022- No Univer s 300 mg 09-18- ity of capsule 00:00: 00:00 [place] 00 :00 [facility] ondansetron 2022-0 2022- No Unive rs 4 mg tablet 09-18- ity of 00:00: 00:00 [place] 00 :00 [facility] DULoxetine 2022-0 2022- No Univer s 30 mg 09-18 ity of capsule 00:00: 00:00 [place] 00 :00 [facility] gabapentin 2022-0 2022- No Univer s 300 mg 09-18 ity of capsule 00:00: 00:00 [place] 00 :00 [facility] ondansetron 2022-0 2022- No Unive rs 4 mg tablet 09-18 ity of 00:00: 00:00 [place] 00 :00 [facility] DULoxetine 2022-0 2022- No Univer s 30 mg 09-18 ity of capsule 00:00: 00:00 [place] 00 :00 [facility] gabapentin 2022-0 2022- No Univer s 300 mg 09-18 ity of capsule 00:00: 00:00 [place] 00 :00 [facility] ondansetron 2022-0 2- No Unive rs 4 mg tablet 09-18 ity of 00:00: 00:00 [place] 00 :00 [facility] amLODIPine 2022-0 Yes [facility] 5 mg tablet 4-22 ity of 00:00: [place] [facility] amLODIPine 2022-0 Yes 5mg Take 5 mg Un sushant 5 mg tablet 4-22 by mouth. ity of 00:00: [place] [facility] amLODIPine 2022-0 Yes [facility] 5 mg tablet 4-22 ity of 00:00: [place] [facility] amLODIPine 2022-0 Yes 5mg Take 5 mg Un sushant 5 mg tablet 4-22 by mouth. ity of 00:00: [place] [facility] amLODIPine 2022-0 Yes [facility] 5 mg tablet 4-22 ity of 00:00: [place] [facility] amLODIPine 2022-0 Yes 5mg Take 5 mg Un sushant 5 mg tablet 4-22 by mouth. ity of 00:00: [place] [facility] amLODIPine 2022-0 Yes [facility] 5 mg tablet 4-22 ity of 00:00: [place] [id number] [facility] amLODIPine 2022-0 Yes 5mg Take 5 mg Un sushant 5 mg tablet 4-22 by mouth. ity of 00:00: [place] [facility] amLODIPine 2022-0 Yes [facility] 5 mg tablet 4-22 ity of 00:00: [place] [facility] amLODIPine 2022-0 Yes 5mg Take 5 mg Un sushant 5 mg tablet 4-22 by mouth. ity of 00:00: [place] [facility] amLODIPine 2022-0 Yes [facility] 5 mg tablet 4-22 ity of 00:00: [place] [facility] amLODIPine 2022-0 Yes 5mg Take 5 mg Un sushant 5 mg tablet 4-22 by mouth. ity of 00:00: [place] [facility] amLODIPine 2022-0 Yes [facility] 5 mg tablet 4-22 ity of 00:00: [place] [facility] amLODIPine 2022-0 Yes 5mg Take 5 mg Un sushant 5 mg tablet 4-22 by mouth. ity of 00:00: [place] [facility] amLODIPine 2022-0 Yes [facility] 5 mg tablet 4-22 ity of 00:00: [place] [facility] amLODIPine 2022-0 Yes 5mg Take 5 mg Un sushant 5 mg tablet 4-22 by mouth. ity of 00:00: [place] [facility] amLODIPine 2022-0 Yes [facility] 5 mg tablet 4-22 ity of 00:00: [place] [facility] amLODIPine 2022-0 Yes 5mg Take 5 mg Un sushant 5 mg tablet 4-22 by mouth. ity of 00:00: [place] [facility] amLODIPine 2-0 Yes [facility] 5 mg tablet 4-22 ity of 00:00: [place] [facility] amLODIPine 2022-0 Yes 5mg Take 5 mg Un sushant 5 mg tablet 4-22 by mouth. ity of 00:00: [place] [facility] amLODIPine 2022-0 Yes [facility] 5 mg tablet 4-22 ity of 00:00: [place] [facility] amLODIPine 2022-0 Yes 5mg Take 5 mg Un sushant 5 mg tablet 4-22 by mouth. ity of 00:00: [place] [facility] amLODIPine 2022-0 2022- No Univer s 5 mg tablet -02-27 ity of 00:00: 00:00 [place] 00 :00 [facility] amLODIPine 2022-0 2022- No 5mg Take 5 mg U nivers 5 mg tablet -22 02-27 by mouth. it y of 00:00: 00:00 [place] 00 :00 [facility] amLODIPine 2022-0 2022- No Univer s 5 mg tablet -22 02-27 ity of 00:00: 00:00 [place] 00 :00 [facility] amLODIPine 2-0 2022- No 5mg Take 5 mg U nivers 5 mg tablet 09-01 by mouth. it y of 00:00: 00:00 [place] 00 :00 [facility] amLODIPine 2022-0 2022- No Univer s 5 mg tablet 09-01 ity of 00:00: 00:00 [place] 00 :00 [facility] Branch amLODIPine 2022-0 2022- No 5mg Take 5 mg U nivers 5 mg tablet 09-01 by mouth. it y of 00:00: 00:00 [place] 00 :00 [facility] amLODIPine 2022-0 2022- No Univer s 5 mg tablet 09-01 ity of 00:00: 00:00 [place] 00 :00 [facility] amLODIPine 2022-0 2022- No 5mg Take 5 mg U nivers 5 mg tablet 09-01 by mouth. it y of 00:00: 00:00 [place] 00 :00 [facility] amLODIPine 2022-0 2022- No Univer s 5 mg tablet 09-01 ity of 00:00: 00:00 [place] 00 :00 Medical Branch amLODIPine 2-0 2022- No 5mg Take 5 mg U nivers 5 mg tablet 09-01 by mouth. it y of 00:00: 00:00 [place] 00 :00 Medical Branch buPROPion 2021-0 Yes [...] 00:00: 04:59 mouth. [place] tablet 00 :00 [facility] buPROPion 2022- No 150mg [...] 00 :00 Medical Branch proMETHazin 2021- No [id number] 25mg Take 1 [facility] e 25 mg [...] Indication s: acute pain proMETHazin 2021-2021- No [id number] 25mg Take 1 [facility] e 25 mg [...] Indication s: acute pain proMETHazin 2021- No [id number] 25mg Take 1 [facility] e 25 mg [...] Indication s: acute pain cyclobenzap 2021- No [id number] 10mg Take 1 [facility] rine 10 mg 08-07 tablet by ity of tablet 00:00: 04:59 mouth 3 [place] 00 :00 (three) Medical times Branch daily for 14 days. ibuprofen 2021- No [id number] 800mg Take 1 [facility] 800 mg 08-07- [...] SR 08-01 ity of tablet 00:00: 00:00 [place] 00 :00 Medical Branch diclofenac 2021- No Univer s 75 mg EC 08-01- ity of tablet 00:00: 00:00 [place] 00 :00 Medical Branch orphenadrin 2021- No Unive rs e 100 mg SR 08-01- ity of tablet 00:00: 00:00 [place] 00 :00 Medical Branch divalproex 2021- No [id number] 125mg Take 1 [facility] 125 mg EC 07-21 tablet by ity of tablet 00:00: 00:00 mouth [place] 00 :00 every 12 Medical (twelve) Branch hours. divalproex 2021- No Univer s Sprinkles 07-21- ity of 125 mg 00:00: 00:00 [place] SPRINK 00 :00 Medical capsule Branch divalproex 2021- No [id number] 125mg Take 1 [facility] 125 mg EC 07-21- tablet by ity of tablet 00:00: 00:00 mouth [place] 00 :00 every 12 Medical (twelve) Branch hours. divalproex 2021- No Univer s Sprinkles 07-21-03 ity of 125 mg 00:00: 00:00 [place] SPRINKLE 00 :00 Medical capsule Branch divalproex 2021- No [id number] 125mg Take 1 [facility] 125 mg EC 07-21- tablet by ity of tablet 00:00: 00:00 mouth [place] 00 :00 every 12 Medical (twelve) Branch hours. ibuprofen 2021- No [id number] 600mg Take 1 [facility] 600 mg 07-17 [...] PAIN FOR 2 DAYS fluticasone 2021- No [id number] 2{puff} Inhale 2 [facility] propionate 1-19 05-19 Puffs ity of 110 00:00: 00:00 every 12 [place] mcg/actuati 00 :00 (twelve) Medi yessi on inhaler hours. Branch fluticasone 2021- No [id number] 2{puff} Inhale 2 [facility] propionate 1-19 05-19 Puffs ity of 110 00:00: 00:00 every 12 [place] mcg/actuati 00 :00 (twelve) Medi yessi on inhaler hours. Branch fluticasone 2021- No [id number] 2{puff} Inhale 2 [facility] propionate 1-19 05-19 Puffs ity of 110 00:00: 00:00 every 12 [place] mcg/actuati 00 :00 (twelve) Medi yessi on inhaler hours. Branch fluticasone 2021- No [id number] 2{puff} Inhale 2 [facility] propionate 1-19 05-19 Puffs ity of 110 00:00: 00:00 every 12 [place] mcg/actuati 00 :00 (twelve) Medi yessi on inhaler hours. Branch benzonatate 2021- No [id number] 100mg Take 1 [facility] (TESSALON 113 05-16 capsule by [place]) 100 00:00: 00:00 [place] mg capsule 00 :00 every 8 Medica l (eight) Branch hours as needed for Cough. benzonatate 2021- No [id number] 100mg Take 1 [facility] (TESSALON 113 05-16 capsule by [place]) 100 00:00: 00:00 mouth [place] mg capsule 00 :00 every 8 Medica l (eight) Branch hours as needed for Cough. benzonatate 2021- No [id number] 100mg Take 1 [facility] (TESSALON 113 05-16 capsule by ankush REUBEN) 100 00:00: 00:00 mouth [place] mg capsule 00 :00 every 8 Medica l (eight) Branch hours as needed for Cough. benzonatate 2021- No [id number] 100mg Take 1 [facility] (TESSALON 113 05-16 [...] [place] 00 :00 (two) Medical times Branch daily with meals. losartan 50 2020-05- No 50mg Take 1 Uni vers mg tablet 2-30 10-18 tablet by ity of 00:00: 00:00 mouth 2 [place] 00 :00 (two) Medical times Branch daily. carvediloL 2020-2021- No 25mg Take 1 Univ ers 25 mg 2-30 10-18 tablet by ity of tablet 00:00: 00:00 mouth 2 [place] 00 :00 (two) Medical times Branch daily with meals. losartan 50 2020-05- No 50mg Take 1 Uni vers mg tablet 2-30 10-18 tablet by ity of 00:00: 00:00 mouth 2 [place] 00 :00 [...] by ity of 00:00: 00:00 mouth 2 [place] 00 :00 (two) Medical times Branch daily. carvediloL 2020-2021- No 25mg Take 1 Univ ers 25 mg 2-30 10-18 tablet by ity of tablet 00:00: 00:00 mouth 2 [place] 00 :00 (two) Medical times Branch daily with meals. losartan 50 2020-05- No 50mg Take 1 Uni vers mg tablet 2-30 10-18 tablet by ity of 00:00: 00:00 mouth 2 [place] 00 :00 (two) Medical times Branch daily. carvediloL 2020-05- No 25mg Take 1 Univ ers 25 mg 2-30 10-18 tablet by ity of tablet 00:00: 00:00 mouth 2 [place] 00 :00 (two) Medical times Branch daily with meals. losartan 50 2020-05- No 50mg Take 1 [facility] vers mg tablet 2-30 10-18 tablet by ity of 00:00: 00:00 mouth 2 [place] 00 :00 (two) Medical times Branch daily. carvediloL 2020-05- No 25mg Take 1 Univ ers 25 mg 2-30 10-18 tablet by ity of tablet 00:00: 00:00 mouth 2 [place] 00 :00 (two) Medical times Branch daily with meals. losartan 50 2020-05- No 50mg Take 1 Uni vers mg tablet 2-30 10-18 tablet by ity of 00:00: 00:00 mouth 2 [place] 00 :00 (two) Medical times Branch daily. carvediloL 2020-2021- No 25mg Take 1 Univ ers 25 mg 2-30 10-18 tablet by ity of tablet 00:00: 00:00 mouth 2 [place] 00 :00 (two) Medical times Branch daily with meals. losartan 50 2020-05- No 50mg Take 1 Uni vers mg tablet 2-30 10-18 tablet by ity of 00:00: 00:00 mouth 2 [place] 00 :00 [...] by ity of 00:00: 00:00 mouth 2 [place] 00 :00 (two) Medical times Branch daily. carvediloL 2020-05- No 25mg Take 1 Univ ers 25 mg 2-30 10-18 tablet by ity of tablet 00:00: 00:00 mouth 2 [place] 00 :00 (two) Medical times Branch daily with meals. losartan 50 2020-05- No 50mg Take 1 Uni vers mg tablet 2-30 10-18 tablet by ity of 00:00: 00:00 mouth 2 [place] 00 :00 (two) Medical times Branch daily. carvediloL 2020-05- No 25mg Take 1 Univ ers 25 mg 2-30 10-18 tablet by ity of tablet 00:00: 00:00 mouth 2 [place] 00 :00 (two) Medical times Branch daily with meals. losartan 50 2020-05- No 50mg Take 1 Uni vers mg tablet 2-30 10-18 tablet by ity of 00:00: 00:00 mouth 2 [place] 00 :00 [...] 00 :00 Medical Branch methocarbam 2020-05- No [id number] 500mg Take 1 [facility] oL 07-03-13 tablet by ity of (ROBAXIN) 00:00: 00:00 mouth [place] 500 mg 00 :00 every 6 Medical tablet (six) Branch hours as needed (MUSCLE SPASM). vitamin 2020-05- No [id number] 500ug Take 1 U nivers B-12 05-18 tablet by ity of (VITAMIN 00:00: 00:00 mouth [place] B-12) 500 00 :00 daily. Medical mcg tablet Branch vitamin 2020-05- No [id number] 500ug Take 1 U nivers B-12 05-18 tablet by ity of (VITAMIN 00:00: 00:00 mouth [place] B-12) 500 00 :00 daily. Medical mcg tablet Branch vitamin 2020-05- No [id number] 500ug Take 1 U nivers B-12 05-18 tablet by ity of (VITAMIN 00:00: 00:00 mouth [place] B-12) 500 00 :00 daily. Medical mcg tablet Branch vitamin 2020-05- No [id number] 500ug Take 1 U nivers B-12 05-18 tablet by ity of (VITAMIN 00:00: 00:00 mouth [place] B-12) 500 00 :00 daily. Medical mcg tablet Branch vitamin 2020-05- No [id number] 500ug Take 1 U nivers B-12 05-18 tablet by ity of (VITAMIN 00:00: 00:00 mouth [place] B-12) 500 00 :00 daily. Medical mcg tablet Branch vitamin 2020-05- No [id number] 500ug Take 1 U nivers B-12 05-18 tablet by ity of (VITAMIN 00:00: 00:00 mouth [place] B-12) 500 00 :00 daily. Medical mcg tablet Branch vitamin 2020-05- No [id number] 500ug Take 1 U nivers B-12 05-18 tablet by ity of (VITAMIN 00:00: 00:00 mouth [place] B-12) 500 00 :00 daily. Medical mcg tablet Branch methylPREDN 2020-05- No [id number] Follow Univers ISolone 4 05-16 package ity of mg tablets 00:00: 00:00 directions [place] 00 :00 Medical Branch methylPREDN 2020-05- No [id number] Follow Univers ISolone 4 05-16 package ity of mg tablets 00:00: 00:00 directions 00 :00 Medical Branch methylPREDN 2020-05- No [id number] Follow Univers ISolone 4 05-16 package ity of mg tablets 00:00: 00:00 directions 00 :00 Medical Branch fluticasone 2021- No [id number] 2{puff} Inhale 2 Univers propion-chel 02-09-13 Puffs 2 ity of meteroL 00:00: 00:00 (two) [place] 115- 00 :00 times Medical mcg/actuati daily. Branch on inhaler Rinse mouth after each use. albuterol 2021- No [id number] 2.5mg Inhale 3 Univers 2.5 mg /3 02-09-13 mL every 6 ity of mL (0.083 00:00: 00:00 (six) [place] %) 00 :00 hours as Medical nebulizer needed for Bran ch solution Wheezing or Shortness of Breath. fluticasone 2021- No [id number] 2{puff} Inhale 2 [facility] propion-chel 9-30 -13 Puffs 2 ity of meteroL 00:00: 00:00 (two) [place] 115- 00 :00 times Medical mcg/actuati daily. Branch on inhaler Rinse mouth after each use. albuterol 2021- No [id number] 2.5mg Inhale 3 Univers 2.5 mg /3 02-09-13 mL every 6 ity of mL (0.083 00:00: 00:00 (six) [place] %) 00 :00 hours as Medical nebulizer needed for Bran ch solution Wheezing or Shortness of Breath. fluticasone 2021- No [id number] 2{puff} Inhale 2 Univers propion-chel 9-30 -13 Puffs 2 ity of meteroL 00:00: 00:00 (two) [place] 115-21 00 :00 times Medical mcg/actuati daily. Branch on inhaler Rinse mouth after each use. albuterol 2021- No [id number] 2.5mg Inhale 3 Univers 2.5 mg /3 02-09-13 mL every 6 ity of mL (0.083 00:00: 00:00 (six) [place] %) 00 :00 hours as Medical nebulizer needed for Bran ch solution Wheezing or Shortness of Breath. fluticasone 2021- No [id number] 2{puff} Inhale 2 [facility] propion-chel 02-09 01-13 Puffs 2 ity of meteroL 00:00: 00:00 (two) [place] 115-21 00 :00 times Medical mcg/actuati daily. Branch on inhaler Rinse mouth after each use. albuterol 2021- No [id number] 2.5mg Inhale 3 Univers 2.5 mg /3 02-0913 mL every 6 ity of mL (0.083 00:00: 00:00 (six) [place] %) 00 :00 hours as Medical nebulizer needed for Bran ch solution Wheezing or Shortness of Breath. methocarbam 2020- No [id number] 500mg Take 1 [facility] oL 02-09 tablet by ity of (ROBAXIN) 00:00: 00:00 mouth [place] 500 mg 00 :00 every 6 Medical tablet (six) Branch hours as needed (MUSCLE SPASM). methocarbam 2020- No [id number] 500mg Take 1 [facility] oL 02-09 tablet by ity of (ROBAXIN) 00:00: 00:00 mouth [place] 500 mg 00 :00 every 6 Medical tablet (six) Branch hours as needed (MUSCLE SPASM). bromphenira 2020- No [id number] 5mL Take 5 mL Univers mine-pseudo 01-31 by mouth 4 i ty of ephedrine-D 00:00: 00:00 (four) [place] as M (BROMFED 00 :00 times Medical DM) 2-30-10 daily as Bran ch mg/5 mL needed for syrup Cough. methylPREDN 2020- No [id number] Take by [facility] ISolone 01-20 mouth ity of (MEDROL, 00:00: 00:00 SEE-INSTRU [place] A[place],) 4 mg 00 :00 CTIONS. Medica l tablets follow Branch package directions methylPREDN 2020- No [id number] Take by [facility] 01-20 mouth ity of (MEDROL, 00:00: 00:00 [place]-INSTRU [place] 4 mg 00 :00 CTIONS. Medica l tablets follow Branch package directions methylPREDN 2020- No [id number] Take by [facility] 01-20 mouth ity of (MEDROL, 00:00: 00:00 [place]-INSTRU [place] 4 mg 00 :00 CTIONS. Medica l tablets follow Branch package directions albuterol 2021- No [id number] 2{puff} Inhale 2 [place] [address] 01-12 [id number] Puffs ity of mcg/actuati 00:00: 00:00 every 4 [place] on inhaler 00 :00 (four) Medical hours as Branch needed for Wheezing or Shortness of Breath. albuterol 2021- No [id number] 2{puff} Inhale 2 [place] [address] 01-12 [id number] Puffs ity of mcg/actuati 00:00: 00:00 every 4 [place] on inhaler 00 :00 (four) Medical hours as Branch needed for Wheezing or Shortness of Breath. albuterol 2021- No [id number] 2{puff} Inhale 2 [place] [address] 01-12 [id number] Puffs ity of mcg/actuati 00:00: 00:00 every 4 [place] on inhaler 00 :00 (four) Medical hours as Branch needed for Wheezing or Shortness of Breath. albuterol 2021- No [id number] 2{puff} Inhale 2 [place] [address] 01-12 [id number] Puffs ity of mcg/actuati 00:00: 00:00 every 4 [place] on inhaler 00 :00 (four) Medical hours as Branch needed for Wheezing or Shortness of Breath. albuterol 2021- No [id number] 2{puff} Inhale 2 [place] [address] 01-12 [id number] Puffs ity of mcg/actuati 00:00: 00:00 every 4 [place] on inhaler 00 :00 (four) Medical hours as Branch needed for Wheezing or Shortness of Breath. albuterol 2021- No [id number] 2{puff} Inhale 2 [facility] 90 01-12 [id number] Puffs ity of mcg/actuati 00:00: 00:00 every 4 [place] on inhaler 00 :00 (four) Medical hours as Branch needed for Wheezing or Shortness of Breath. albuterol 2021- No [id number] 2{puff} Inhale 2 [facility] 90 01-12 [id number] Puffs ity of mcg/actuati 00:00: 00:00 every 4 [place] on inhaler 00 :00 (four) Medical hours as Branch needed for Wheezing or Shortness of Breath. benzonatate 2020- No [id number] 100mg Take 1 [facility] 100 mg 01-12 [id number] capsule by ity of capsule 00:00: 00:00 mouth 3 [place] 00 :00 (three) Medical times Branch daily as needed for Cough. benzonatate 2020- No [id number] 100mg Take 1 [facility] 100 mg 01-12 [id number] capsule by ity of capsule 00:00: 00:00 mouth 3 [place] 00 :00 (three) Medical times Branch daily as needed for Cough. benzonatate 2020- No [id number] 100mg Take 1 [facility] 100 mg 01-12 [id number] capsule by ity of capsule 00:00: 00:00 mouth 3 [place] 00 :00 (three) Medical times Branch daily [...] mg 11-21 ity of tablet 00:00: 00:00 [place] 00 :00 Medical Branch OXcarbazepi 2020- No Unive rs ne 150 mg 11-2130 ity of tablet 00:00: 00:00 [place] 00 :00 Medical Branch OXcarbazepi 2020- No Unive rs ne 150 mg 11-2130 ity of tablet 00:00: 00:00 [place] 00 :00 Medical Branch OXcarbazepi 2020- No Unive rs ne 150 mg 11-21 ity of tablet 00:00: 00:00 [place] 00 :00 Medical Branch FLUoxetine No Univer s 40 mg 11-21 ity of capsule 00:00: 00:00 [place] 00 :00 Medical Branch traZODone 2020- No Univers 100 mg 11-21 ity of tablet 00:00: 00:00 [place] 00 :00 Medical Branch dicyclomine 2020- No [id number] 20mg Take 1 [facility] 20 mg 10-20-16 tablet by ity of tablet 00:00: 00:00 mouth 4 [place] 00 :00 (four) Medical times Branch daily. proMETHazin 2020- No [id number] 25mg Take 1 Univers e 25 mg [...] Branch NEEDED FOR PAIN oxybutynin 2020- No [id number] 10mg Take 1 Univers (DITROPAN 5-30 08-16 tablet by ity of XL) 10 mg 00:00: 00:00 mouth [place] 24 hr 00 :00 daily. Medical tablet Branch ondansetron 2020-0 2020- No [id number] 4mg Take 1 Univers (ZOFRAN 5-30 08-16 tablet by ity of ODT) 4 mg 00:00: 00:00 mouth [place] disintegrat 00 :00 every 8 Medic al ing tablet (eight) Branch hours as needed for Nausea and Vomiting (N/V). oxybutynin 2020-0 2020- No [id number] 10mg Take 1 Univers (DITROPAN 5-30 08-16 tablet by ity of XL) 10 mg 00:00: 00:00 mouth [place] 24 hr 00 :00 daily. Medical tablet Branch ondansetron 2020-0 2020- No [id number] 4mg Take 1 Univers (ZOFRAN 5-30 08-16 tablet by ity of ODT) 4 mg 00:00: 00:00 mouth [place] disintegrat 00 :00 every 8 Medic al ing tablet (eight) Branch hours as needed for Nausea and Vomiting (N/V). oxybutynin 2020-0 2020- No [id number] 10mg Take 1 Univers (DITROPAN 5-30 08-16 tablet by ity of XL) 10 mg 00:00: 00:00 mouth [place] 24 hr 00 :00 daily. Medical tablet Branch ondansetron 2020-2020- No [id number] 4mg Take 1 [facility] (ZOFRAN 5-30 08-16 tablet by ity of ODT) 4 mg 00:00: 00:00 mouth [place] disintegrat 00 :00 every 8 Medic al ing tablet (eight) Branch hours as needed for Nausea and Vomiting (N/V). oxybutynin 2020-0 2020- No [id number] 10mg Take 1 Univers (DITROPAN 5-30 08-16 tablet by ity of XL) 10 mg 00:00: 00:00 mouth [place] 24 hr 00 :00 daily. Medical tablet Branch ondansetron 2020-0 2020- No [id number] 4mg Take 1 Univers (ZOFRAN 5-30 08-16 tablet by ity of ODT) 4 mg 00:00: 00:00 mouth [place] disintegrat 00 :00 every 8 Medic al ing tablet (eight) Branch hours as needed for Nausea and Vomiting (N/V). ciprofloxac 2020- No [id number] 500mg Take 1 [facility] in HCl 500 5-30 -13 tablet by ity of mg tablet 00:00: 00:00 mouth 2 [place] 00 :00 (two) Medical times Branch daily. ciprofloxac 2020- No [id number] 500mg Take 1 [facility] in HCl 500 5-30 -13 tablet by ity of mg tablet 00:00: 00:00 mouth 2 [place] 00 :00 (two) Medical times Branch daily. ciprofloxac 2020- No [id number] 500mg Take 1 [facility] in HCl 500 5-30 -13 tablet by ity of mg tablet 00:00: 00:00 mouth 2 [place] 00 :00 (two) Medical times Branch daily. predniSONE 2020- No [id number] 20mg Take 1 [facility] 20 mg 5-25 -13 tablet by ity of tablet 00:00: 00:00 mouth [place] 00 :00 daily. Medical Days 1-2: Branch 3 pills (60 mg). Days 3-4: 2 pills (40 mg). Days 5-6: 1 pill (20 mg). Days 7-8: 1/2 pill (10 mg). Then stop predniSONE 2020- No [id number] 20mg Take 1 [facility] 20 mg 5-25 -13 tablet by ity of tablet 00:00: 00:00 mouth [place] 00 :00 daily. Medical Days 1-2: Branch 3 pills (60 mg). Days 3-4: 2 pills (40 mg). Days 5-6: 1 pill (20 mg). Days 7-8: 1/2 pill (10 mg). Then stop predniSONE 2020- No [id number] 20mg Take 1 [facility] 20 mg 5-25 07-13 tablet by ity of tablet 00:00: 00:00 mouth [place] 00 :00 daily. Medical Days 1-2: Branch 3 pills (60 mg). Days 3-4: 2 pills (40 mg). Days 5-6: 1 pill (20 mg). Days 7-8: 1/2 pill (10 mg). Then stop predniSONE 2020- No [id number] 20mg Take 1 [facility] 20 mg 5-25 07-13 tablet by ity of tablet 00:00: 00:00 mouth [place] 00 :00 daily. Medical Days 1-2: Branch 3 pills (60 mg). Days 3-4: 2 pills (40 mg). Days 5-6: 1 pill (20 mg). Days 7-8: 1/2 pill (10 mg). Then stop predniSONE 2020- No [id number] 20mg Take 1 [facility] 20 mg 5-25 07-13 tablet by ity of tablet 00:00: 00:00 mouth [place] 00 :00 daily. Medical Days 1-2: Branch 3 pills (60 mg). Days 3-4: 2 pills (40 mg). Days 5-6: 1 pill (20 mg). Days 7-8: 1/2 pill (10 mg). Then stop predniSONE 2020- No [id number] 20mg Take 1 [facility] 20 mg 5-25 07-13 tablet by ity of tablet 00:00: 00:00 mouth [place] 00 :00 daily. Medical Days 1-2: Branch 3 pills (60 mg). Days 3-4: 2 pills (40 mg). Days 5-6: 1 pill (20 mg). Days 7-8: 1/2 pill (10 mg). Then stop predniSONE 2020- No [id number] 20mg Take 1 [facility] 20 mg 5-25 07-13 tablet by ity of tablet 00:00: 00:00 mouth [place] 00 :00 daily. Medical Days 1-2: Branch 3 pills (60 mg). Days 3-4: 2 pills (40 mg). Days 5-6: 1 pill (20 mg). Days 7-8: 1/2 pill (10 mg). Then stop predniSONE 2020- No [id number] 20mg Take 1 [facility] 20 mg 5-25 07-13 tablet by ity of tablet 00:00: 00:00 mouth [place] 00 :00 daily. Medical Days 1-2: Branch 3 pills (60 mg). Days 3-4: 2 pills (40 mg). Days 5-6: 1 pill (20 mg). Days 7-8: 1/2 pill (10 mg). Then stop predniSONE 2020- No [id number] 20mg Take 1 [facility] 20 mg -11-22 tablet by ity of tablet 00:00: 00:00 mouth [place] 00 :00 daily. Medical Days 1-2: Branch 3 pills (60 mg). Days 3-4: 2 pills (40 mg). Days 5-6: 1 pill (20 mg). Days 7-8: 1/2 pill (10 mg). Then stop predniSONE 2020- No [id number] 20mg Take 1 [facility] 20 mg 5-25 - tablet by ity of tablet 00:00: 00:00 mouth [place] 00 :00 daily. Medical Days 1-2: Branch 3 pills (60 mg). Days 3-4: 2 pills (40 mg). Days 5-6: 1 pill (20 mg). Days 7-8: 1/2 pill (10 mg). Then stop mupirocin 2 2020- No [id number] Apply to Univers % ointment 5-20 - both ity of 00:00: 00:00 nostrils [place] 00 :00 at [facility] mupirocin 2 2020- No [id number] Apply to Univers % ointment 5-20 - both ity of 00:00: 00:00 nostrils [place] 00 :00 at [facility] mupirocin 2 2020- No [id number] Apply to Univers % ointment 5-20 - both ity of 00:00: 00:00 nostrils [place] 00 :00 at [facility] mupirocin 2 2020- No [id number] Apply to Univers % ointment 5-20 - both ity of 00:00: 00:00 nostrils [place] 00 :00 at [facility] mupirocin 2 2020- No [id number] Apply to Univers % ointment 5-20 - both ity of 00:00: 00:00 nostrils [place] 00 :00 at [facility] mupirocin 2 2020- No [id number] Apply to Univers % ointment 5-20 - both ity [facility] 00:00: 00:00 [facility] [place] [facility] 2020- No [id number] Apply to [facility] % ointment 5-20 08-16 both ity of 00:00: 00:00 nostrils [place] 00 :00 at bedtime Medical Branch mupirocin 2 2020- No [id number] Apply to Univers % ointment 5-20 08-16 both ity of 00:00: 00:00 nostrils [place] 00 :00 at bedtime Medical Branch mupirocin 2 2020- No [id number] Apply to Univers % ointment 5-20 08-16 both ity of 00:00: 00:00 nostrils [place] 00 :00 at bedtime Medical Branch mupirocin 2 2020- No [id number] Apply to Univers % ointment 5-20 08-16 both ity of 00:00: 00:00 nostrils [place] 00 :00 at bedtime Medical Branch mupirocin 2 2020- No [id number] Apply to Univers % ointment 5-20 08-16 both ity of 00:00: 00:00 [facility]rils [place] [facility] naproxen 2020- No [id number] 550mg Take 1 U nivers sodium 09-28-16 tablet by ity of (ANAPROX 00:00: 00:00 mouth 2 [place] DS) 550 mg 00 :00 (two) Medical tablet times Branch daily with meals. naproxen 2020- No [id number] 550mg Take 1 U nivers sodium 09-28-16 tablet by ity of (ANAPROX 00:00: 00:00 mouth 2 [place] DS) 550 mg 00 :00 (two) Medical tablet times Branch daily with meals. naproxen 2020- No [id number] 550mg Take 1 U nivers sodium -29 12-16 tablet by ity of (ANAPROX 00:00: 00:00 mouth 2 [place] DS) 550 mg 00 :00 (two) Medical tablet times Branch daily with meals. naproxen 2020- No [id number] 550mg Take 1 U nivers sodium 09-28-16 tablet by ity of (ANAPROX 00:00: 00:00 mouth 2 [place] DS) 550 mg 00 :00 (two) Medical tablet times Branch daily with meals. naproxen No [id number] 550mg Take 1 U nivers sodium 5-19 08-16 tablet by ity of (ANAPROX 00:00: 00:00 mouth 2 [place] DS) 550 mg 00 :00 (two) Medical tablet times Branch daily with meals. naproxen No [id number] 550mg Take 1 U nivers sodium 5-19 08-16 tablet by ity of (ANAPROX 00:00: 00:00 mouth 2 [place] DS) 550 mg 00 :00 (two) Medical tablet times Branch daily with meals. naproxen No [id number] 550mg Take 1 U nivers sodium 5-19 08-16 tablet by ity of (ANAPROX 00:00: 00:00 mouth 2 [place] DS) 550 mg 00 :00 (two) Medical tablet times Branch daily with meals. naproxen No [id number] 550mg Take 1 U nivers sodium 5-19 08-16 tablet by ity of (ANAPROX 00:00: 00:00 mouth 2 [place] DS) 550 mg 00 :00 (two) Medical tablet times Branch daily with meals. naproxen No [id number] 550mg Take 1 U nivers sodium 5-19 08-16 tablet by ity of (ANAPROX 00:00: 00:00 mouth 2 [place] DS) 550 mg 00 :00 (two) Medical tablet times Branch daily with meals. naproxen 2020- No [id number] 550mg Take 1 U nivers sodium 5-19 08-16 tablet by ity of (ANAPROX 00:00: 00:00 mouth 2 [place] DS) 550 mg 00 :00 (two) Medical tablet times Branch daily with meals. naproxen 2020- No [id number] 550mg Take 1 U nivers sodium 5-19 08-16 tablet by ity of (ANAPROX 00:00: 00:00 mouth 2 [place] DS) 550 mg 00 :00 (two) Medical tablet times Branch daily with meals. losartan 25 2021-0 2021- No 25mg Take 1 Uni vers mg tablet 09-16 tablet by ity of 00:00: 00:00 mouth 2 [place] 00 :00 (two) Medical times Branch daily. nadoloL 2020- No [id number] Please Univers mg tablet 09-16 take ity of 00:00: 00:00 Nadalol 40 [place] 00 :00 mg QA Medical Branch losartan 25 2020- No 25mg Take 1 Uni vers mg tablet 09-16 tablet by ity of 00:00: 00:00 mouth 2 [place] 00 :00 (two) Medical times Branch daily. nadoloL 2020- No [id number] Please Univers mg tablet 09-16 take ity of 00:00: 00:00 Nadalol 40 [place] 00 :00 mg QA Medical Branch losartan 25 2020- No 25mg Take 1 Uni vers mg tablet 09-16 tablet by ity of 00:00: 00:00 mouth 2 [place] 00 :00 (two) Medical times Branch daily. nadoloL 2020- No [id number] Please Univers mg tablet 09-16 take ity of 00:00: 00:00 Nadalol 40 [place] 00 :00 mg QA Medical Branch losartan 25 2020- No 25mg Take 1 Uni vers mg tablet 09-16 tablet by ity of 00:00: 00:00 mouth 2 [place] 00 :00 (two) Medical times Branch daily. nadoloL 2020- No [id number] Please Univers mg tablet 09-16 take ity of 00:00: 00:00 Nadalol 40 [place] 00 :00 mg QA Medical Branch losartan 25 2020- No 25mg Take 1 Uni vers mg tablet 09-16 tablet by ity of 00:00: 00:00 mouth 2 [place] 00 :00 (two) Medical times Branch daily. nadoloL 2020- No [id number] Please Univers mg tablet 09-16 take ity of 00:00: 00:00 Nadalol 40 [place] 00 :00 mg QA Medical Branch losartan 25 2020- No 25mg Take 1 Uni vers mg tablet 5-07 08-12 tablet by ity of 00:00: 00:00 mouth 2 [place] 00 :00 (two) Medical times Branch daily. nadoloL 2020- No [id number] Please Univers mg tablet 09-16 take ity of 00:00: 00:00 Nadalol 40 [place] 00 :00 mg QA Medical Branch losartan 25 2020- No 25mg Take 1 Uni vers mg tablet 09-16 tablet by ity of 00:00: 00:00 mouth 2 [place] 00 :00 (two) Medical times Branch daily. nadoloL 2020- No [id number] Please Univers mg tablet 09-16 take ity of 00:00: 00:00 Nadalol 40 [place] 00 :00 mg QA Medical Branch losartan 25 2020- No 25mg Take 1 Uni vers mg tablet 09-16 tablet by ity of 00:00: 00:00 mouth 2 [place] 00 :00 (two) Medical times Branch daily. nadoloL 2020- No [id number] Please Univers mg tablet 09-16 take ity of 00:00: 00:00 Nadalol 40 [place] 00 :00 mg QA Medical Branch losartan 25 2020- No 25mg Take 1 Uni vers mg tablet 09-16 tablet by ity of 00:00: 00:00 mouth 2 [place] 00 :00 (two) Medical times Branch daily. nadoloL 2020- No [id number] Please Univers mg tablet 09-16 take ity of 00:00: 00:00 Nadalol 40 [place] 00 :00 mg QA Medical Branch losartan 25 2020- No 25mg Take 1 Uni vers mg tablet 09-16 tablet by ity of 00:00: 00:00 mouth 2 [place] 00 :00 (two) Medical times Branch daily. nadoloL 2020- No [id number] Please Univers mg tablet 09-16 take ity of 00:00: 00:00 Nadalol 40 [place] 00 :00 mg QAM Medical Branch losartan 25 2020- No 25mg Take 1 Uni vers mg tablet 09-16 tablet by ity of 00:00: 00:00 mouth 2 [place] 00 :00 (two) Medical times Branch daily. nadoloL 20 2020- No [id number] Please Univers mg tablet 09-16 take ity of 00:00: 00:00 Nadalol 40 [place] 00 :00 mg QAM Medical Branch LOESTRIN FE 2020- No [id number] 1{tbl} Take 1 Univers (LOESTRIN 4-27 -30 tablet by ity of FE 06/01) 1 00:00: 00:00 mouth [place] mg-20 mcg 00 :00 daily. Medical (21)/75 mg Branch (7) tablet LOESTRIN FE 2020- No [id number] 1{tbl} Take 1 [facility] (LOESTRIN 4-27 -30 tablet by ity of FE 06/01) 1 00:00: 00:00 mouth [place] mg-20 mcg 00 :00 daily. Medical (21)/75 mg Branch (7) tablet LOESTRIN FE 2020- No [id number] 1{tbl} Take 1 [facility] (LOESTRIN 4-27 -30 tablet by ity of FE 06/01) 1 00:00: 00:00 mouth [place] mg-20 mcg 00 :00 daily. Medical (21)/75 mg Branch (7) tablet LOESTRIN FE 2020- No [id number] 1{tbl} Take 1 [facility] (LOESTRIN 4-27 -30 tablet by ity of FE 06/01) 1 00:00: 00:00 mouth [place] mg-20 mcg 00 :00 daily. Medical (21)/75 mg Branch (7) tablet LOESTRIN FE 2020- No [id number] 1{tbl} Take 1 [facility] (LOESTRIN 4-27 -30 tablet by ity of FE 06/01) 1 00:00: 00:00 mouth [place] mg-20 mcg 00 :00 daily. Medical (21)/75 mg Branch (7) tablet LOESTRIN FE 2020- No [id number] 1{tbl} Take 1 Univers (LOESTRIN 4-27 -30 tablet by ity of FE 06/01) 1 00:00: 00:00 mouth [place] mg-20 mcg 00 :00 daily. Medical (21)/75 mg Branch (7) tablet LOESTRIN FE 2020-0 2020- No [id number] 1{tbl} Take 1 Univers (LOESTRIN 4-27 -30 tablet by ity of FE 06/01) 1 00:00: 00:00 mouth [place] mg-20 mcg 00 :00 daily. Medical (21)/75 mg Branch (7) tablet LOESTRIN FE 2020-0 2020- No [id number] 1{tbl} Take 1 [facility] (LOESTRIN 4-27 -30 tablet by ity of FE 06/01) 1 00:00: 00:00 mouth [place] mg-20 mcg 00 :00 daily. Medical (21)/75 mg Branch (7) tablet LOESTRIN FE 2020-0 2020- No [id number] 1{tbl} Take 1 [facility] (LOESTRIN 4-27 -30 tablet by ity of FE 06/01) 1 00:00: 00:00 mouth [place] mg-20 mcg 00 :00 daily. Medical (21)/75 mg Branch (7) tablet LOESTRIN FE 2020-0 2020- No [id number] 1{tbl} Take 1 Univers (LOESTRIN 4-27 -30 tablet by ity of FE 06/01) 1 00:00: 00:00 mouth [place] mg-20 mcg 00 :00 daily. Medical (21)/75 mg Branch (7) tablet LOESTRIN FE 2020-0 2020- No [id number] 1{tbl} Take 1 Univers (LOESTRIN 4-27 -30 tablet by ity of FE 06/01) 1 00:00: 00:00 mouth [place] mg-20 mcg 00 :00 daily. Medical (21)/75 mg Branch (7) tablet LOESTRIN FE 2020-0 2020- No [id number] 1{tbl} Take 1 Univers (LOESTRIN 4-27 -30 tablet by ity of FE 06/01) 1 00:00: 00:00 mouth [place] mg-20 mcg 00 :00 daily. Medical (21)/75 mg Branch (7) tablet LOESTRIN FE 2020-0 2020- No [id number] 1{tbl} Take 1 Univers (LOESTRIN 4-27 -30 tablet by ity of FE 06/01) 1 00:00: 00:00 mouth [place] mg-20 mcg 00 :00 daily. Medical (21)/75 mg Branch (7) tablet LOESTRIN FE 2020- No [id number] 1{tbl} Take 1 [facility] (LOESTRIN 4-27 09-30 tablet by ity of FE 06/01) 1 00:00: 00:00 mouth [place] mg-20 mcg 00 :00 daily. Medical (21)/75 mg Branch (7) tablet FLUoxetine 2020- No [id number] 20mg Take 1 [facility] 20 mg 4-27 07-13 capsule by ity of capsule 00:00: 00:00 mouth [place] 00 :00 daily. [facility] Branch traZODone 2020- No [id number] 50mg Take 1 Univers 50 mg 4-27 07-13 tablet by ity of tablet 00:00: 00:00 mouth at [place] 00 :00 bedtime. [facility] Branch FLUoxetine 2020- No [id number] 20mg Take 1 Univers 20 mg 4-27 07-13 capsule by ity of capsule 00:00: 00:00 mouth [place] 00 :00 daily. [facility] Branch traZODone 2020- No [id number] 50mg Take 1 Univers 50 mg 4-27 07-13 tablet by ity of tablet 00:00: 00:00 mouth at [place] 00 :00 bedtime. [facility] Branch FLUoxetine 2020- No [id number] 20mg Take 1 [facility] 20 mg 4-27 07-13 capsule by ity of capsule 00:00: 00:00 mouth [place] 00 :00 daily. [facility] Branch traZODone 2020- No [id number] 50mg Take 1 [facility] 50 mg 4-27 07-13 tablet by ity of tablet 00:00: 00:00 mouth at [place] 00 :00 bedtime. [facility] Branch FLUoxetine 2020- No [id number] 20mg Take 1 [facility] 20 mg 4-27 07-13 capsule by ity of capsule 00:00: 00:00 mouth [place] 00 :00 daily. [facility] Branch traZODone 2020- No [id number] 50mg Take 1 [facility] 50 mg 4-27 07-13 tablet by ity of tablet 00:00: 00:00 mouth at [place] 00 :00 bedtime. [facility] Branch FLUoxetine 2020- No [id number] 20mg Take 1 [facility] 20 mg 4-27 07-13 capsule by ity of capsule 00:00: 00:00 mouth [place] 00 :00 daily. [facility] Branch traZODone 2020- No [id number] 50mg Take 1 Univers 50 mg 4-27 07-13 tablet by ity of tablet 00:00: 00:00 mouth at [place] 00 :00 bedtime. [facility] Branch FLUoxetine 2020- No [id number] 20mg Take 1 [facility] 20 mg 4-27 07-13 capsule by ity of capsule 00:00: 00:00 mouth [place] 00 :00 daily. [facility] traZODone 2020- No [id number] 50mg Take 1 Univers 50 mg 4-27 07-13 tablet by ity of tablet 00:00: 00:00 mouth at [place] 00 :00 bedtime. [facility] FLUoxetine 2020- No [id number] 20mg Take 1 [facility] 20 mg 4-27 07-13 capsule by ity of capsule 00:00: 00:00 mouth [place] 00 :00 daily. [facility] traZODone 2020- No [id number] 50mg Take 1 [facility] 50 mg 4-27 07-13 tablet by ity of tablet 00:00: 00:00 mouth at [place] 00 :00 bedtime. [facility] FLUoxetine 2020- No [id number] 20mg Take 1 [facility] 20 mg 4-27 07-13 capsule by ity of capsule 00:00: 00:00 mouth [place] 00 :00 daily. [facility] traZODone 2020- No [id number] 50mg Take 1 [facility] 50 mg 4-27 07-13 tablet by ity of tablet 00:00: 00:00 mouth at [place] 00 :00 bedtime. [facility] FLUoxetine 2020- No [id number] 20mg Take 1 [facility] 20 mg 4-27 07-13 capsule by ity of capsule 00:00: 00:00 mouth [place] 00 :00 daily. [facility] traZODone 2020- No [id number] 50mg Take 1 [facility] 50 mg 4-27 07-13 tablet by ity of tablet 00:00: 00:00 mouth at [place] 00 :00 bedtime. Medical Branch FLUoxetine 2020- No [id number] 20mg Take 1 [facility] 20 mg 09-06 capsule by ity of capsule 00:00: 00:00 mouth [place] 00 :00 daily. Medical Branch traZODone 2020- No [id number] 50mg Take 1 [facility] 50 mg 09-06 tablet by ity of tablet 00:00: 00:00 mouth at [place] 00 :00 bedtime. Medical Branch nadoloL 20 2020- No [id number] Please Univers mg tablet 08-31 take ity of 00:00: 00:00 Nadalol 40 [place] 00 :00 mg QAM and Medical 20 mg QPM Branch methocarbam 2020- No [id number] 500mg Take 1 Univers oL 08-18 tablet [...] Branch NEEDED FOR PAIN ondansetron 2020- No [id number] 4mg Take 1 [facility] (ZOFRAN 08-01 [id number] tablet by ity of ODT) 4 mg 00:00: 00:00 mouth [place] disintegrat 00 :00 every 8 Medic al ing tablet (eight) Branch hours as needed for Nausea and Vomiting (N/V). ketorolac 2020- No [id number] 10mg Take 1 [facility] 10 mg 08-01 [id number] tablet by ity of tablet 00:00: 00:00 mouth [place] 00 :00 every 6 Medical (six) Branch hours as needed for Pain (scale 4-6). ciprofloxac 2020- No [id number] 250mg Take 1 [facility] in HCl 250 08-01 [id number] tablet by i ty of mg tablet 00:00: 00:00 mouth 2 [place] 00 :[place] (two) Medical times Branch daily. lidocaine 5 2020- No [id number] 1{patch Apply 1 Univers % (700 3-12 [...] Medical times Branch daily. metoprolol 2019-05 No [id number] 12.5mg Take 0.5 [facility] succinate 07-03 tablets by ity of XL 25 mg 24 00:00: 00:00 mouth 2 [place] hr tablet 00 :00 (two) Medical times Branch daily for 90 days. metoprolol 2019-05 No [id number] 12.5mg Take 0.5 [facility] succinate 07-03- tablets by ity of XL 25 mg 24 00:00: 00:00 mouth 2 [place] hr tablet 00 :00 (two) Medical times Branch daily for 90 days. metoprolol 2019-05 No [id number] 12.5mg Take 0.5 [facility] succinate 07-03- tablets by ity of XL 25 mg 24 00:00: 00:00 mouth 2 [place] hr tablet 00 :00 (two) Medical times Branch daily for 90 days. FLUoxetine 2019-05- No 20mg Take 20 mg Univers 20 mg 06-14 by mouth ity of capsule 00:00: 00:00 daily. [place] 00 :00 Medical Branch FLUoxetine 2019-05 No 20mg Take 20 mg Univers 20 mg 06-14- by mouth ity of capsule 00:00: 00:00 daily. [place] 00 :00 Medical Branch norgestimat 2019- No [id number] 1{tbl} Take 1 Univers e-ethinyl 11-17- tablet by ity of estradiol 00:00: 00:00 mouth [place] 0.25-35 00 :00 daily. Medical mg-mcg per Branch tablet buPROPion 2019- No [id number] 150mg Take 1 [facility] XL 08-12- tablet by ity of (WELLBUTRIN 00:00: 00:00 mouth [place] XL) 150 mg 00 :00 daily. Medical 24 hr Branch tablet acetaminoph 2019- No [id number] 650mg Take 2 [facility] en 325 mg 07-22-25 tablets by ity of tablet 00:00: 00:00 mouth [place] 00 :00 every 6 Medical (six) Branch hours as needed for Pain (scale 1-3) or Pain (scale 4-6). 2019- No [id number] 1{tbl} Take 1 [facility] vitamin 07-22-25 tablet by ity of w/FA tablet 00:00: 00:00 mouth [place] 00 :00 daily. Medical Branch docusate 2019- No [id number] 240mg Take 1 U nivers calcium 240 07-22- capsule by i ty of mg capsule 00:00: 00:00 mouth once [place] 00 :00 daily as Medical needed for Branch Constipati on. ferrous 2019- No [id number] 325mg Take 1 Un sushant sulfate 325 07-22-25 tablet by it y of mg (65 mg 00:00: 00:00 mouth 2 [place] iron) 00 :00 (two) Medical tablet times Branch daily. ibuprofen 2019- No [id number] 600mg Take 1 [facility] 600 mg 07-22-25 tablet by ity of tablet 00:00: 00:00 mouth [place] 00 :00 every 6 Medical (six) Branch hours as needed (Pain). Take with food or milk. ALBUTEROL 2019- No [id number] INHALE 2 Univers 90 1-14 12-20 103 PUFFS BY ity of mcg/actuati 00:00: 00:00 MOUTH [place] on inhaler 00 :00 EVERY 6 Medica l HOURS Branch NEEDED FOR WHEEZING FOR SHORTNESS OF BREATH buPROPion 2020- No [id number] 150mg Take 1 [facility] SR 05-21 tablet by ity of (WELLBUTRIN 00:00: 00:00 mouth 2 [place] SR) 150 mg 00 :00 (two) Medical SR tablet times Branch daily. busPIRone 2020- No [id number] 10mg Take 1 Univers 10 mg 05-21 109 tablet by ity of tablet 00:00: 00:00 mouth 3 [place] 00 :00 (three) Medical times Branch daily. Immunizations Ordered Filled Date Status Comments Source Immunization Name Immunization Name Influenza Virus 2022-02-27 Completed Universit y of Vaccine [facility] IM, 00:00:00 [place] [facility] Preserv and ABX Branch Free 6 MO-64 YRS Influenza Virus 2022-02-27 Completed Universit y of Vaccine [facility] IM, 00:00:00 [place] Me dical Preserv and ABX Branch Free [...] Universit y of Vaccine Quad IM, 00:00:00 [place] Me dical Preserv and ABX Branch Free [...] Universit y of Vaccine Quad IM, 00:00:00 [place] Me dical Preserv and ABX Branch Free [...] Quad .5 mL 00:00:00 [facility] 6+ MO Branch Influenza Virus 2022-02-21 Completed Universit y of Vaccine Quad .5 mL 00:00:00 [place] [facility] IM 6+ MO Branch Influenza Virus 2022-02-21 Completed Universit y of Vaccine Quad .5 mL 00:00:00 [facility] 6+ MO Branch (FLUZONE/FLULAVAL/F LUARIX) Influenza Virus 2022-02-21 Completed Universit y of Vaccine Quad .5 mL 00:00:00 [facility] 6+ MO Branch (FLUZONE/FLULAVAL/F LUARIX) Influenza Virus 2022-02-21 Completed Universit y of Vaccine Quad .5 mL 00:00:00 [facility] 6+ MO Branch (FLUZONE/FLULAVAL/F LUARIX) Influenza Virus 2021-06-11 Completed Universit y of Vaccine 00:00:00 [facility] Influenza Virus 2021-06-11 Completed Universit y of Vaccine 00:00:00 [facility] Influenza Virus 2021-06-11 Completed Universit y of Vaccine 00:00:00 [facility] Influenza Virus 2021-06-11 Completed Universit y of Vaccine 00:00:00 [facility] Influenza Virus 2021-06-11 Completed Universit y of Vaccine 00:00:00 [facility] Influenza Virus 2021-06-11 Completed Universit y of Vaccine 00:00:00 [facility] Influenza Virus 2021-06-11 Completed Universit y of Vaccine 00:00:00 [facility] Influenza Virus 2021-06-11 Completed Universit y of Vaccine 00:00:00 [facility] Influenza Virus 2021-06-11 Completed Universit y of Vaccine 00:00:00 [facility] Influenza Virus 2021-06-11 Completed Universit y of Vaccine 00:00:00 [facility] Influenza Virus 2021-06-11 Completed Universit y of Vaccine 00:00:00 [facility] Influenza Virus 2021-06-11 Completed Universit y of Vaccine 00:00:00 [facility] Influenza Virus 2021-06-11 Completed Universit y of Vaccine 00:00:00 [facility] Influenza Virus 2021-06-11 Completed Universit y of Vaccine 00:00:00 [facility] Influenza Virus 2021-06-11 Completed Universit y of Vaccine 00:00:00 [facility] Influenza Virus 2021-06-11 Completed Universit y of Vaccine 00:00:00 [facility] Influenza Virus 2021-06-11 Completed Universit y of Vaccine 00:00:00 [facility] Influenza Virus 2021-06-11 Completed Universit y of Vaccine 00:00:00 [facility] Influenza Virus 2021-06-11 Completed Universit y of Vaccine 00:00:00 [facility] Influenza Virus 2021-06-11 Completed Universit y of Vaccine 00:00:00 [facility] Influenza Virus 2021-06-11 Completed Universit y of Vaccine 00:00:00 [facility] Influenza Virus 2021-06-11 Completed Universit y of Vaccine 00:00:00 [facility] Influenza Virus 2021-06-11 Completed Universit y of Vaccine 00:00:00 [facility] Influenza Virus 2021-06-11 Completed Universit y of Vaccine 00:00:00 [facility] Influenza Virus 2021-06-11 Completed Universit y of Vaccine 00:00:00 [facility] Influenza Virus 2021-06-11 Completed Universit y of Vaccine 00:00:00 [facility] Influenza Virus 2021-06-11 Completed Universit y of Vaccine 00:00:00 [facility] Influenza Virus 2021-06-11 Completed Universit y of Vaccine 00:00:00 [facility] Influenza Virus 2021-06-11 Completed Universit y of Vaccine 00:00:00 [facility] Influenza Virus 2021-06-11 Completed Universit y of Vaccine 00:00:00 [facility] Influenza Virus 2021-06-11 Completed Universit y of Vaccine 00:00:00 [facility] Influenza Virus 2021-06-11 Completed Universit y of Vaccine 00:00:00 [facility] Influenza Virus 2021-06-11 Completed Universit y of Vaccine 00:00:00 [facility] Influenza Virus 2021-06-11 Completed Universit y of Vaccine 00:00:00 [facility] Influenza Virus 2021-06-11 Completed Universit y of Vaccine 00:00:00 [facility] Influenza Virus 2021-06-11 Completed Universit y of Vaccine 00:00:00 [facility] Influenza Virus 2021-06-11 Completed Universit y of Vaccine 00:00:00 [facility] Influenza Virus 2021-06-11 Completed Universit y of Vaccine 00:00:00 [facility] Influenza Virus 2021-06-11 Completed Universit y of Vaccine 00:00:00 [facility] Influenza Virus 2021-06-11 Completed Universit y of Vaccine 00:00:00 [facility] Influenza Virus 2021-06-11 Completed Universit y of Vaccine 00:00:00 [facility] Influenza Virus 2021-06-11 Completed Universit y of Vaccine 00:00:00 [facility] Influenza Virus 2021-06-11 Completed Universit y of Vaccine 00:00:00 [facility] Influenza Virus 2021-06-11 Completed Universit y of Vaccine 00:00:00 [facility] Influenza Virus 2021-06-11 Completed Universit y of Vaccine 00:00:00 [facility] Influenza Virus 2021-06-11 Completed Universit y of Vaccine 00:00:00 [facility] Influenza Virus 2021-06-11 Completed Universit y of Vaccine 00:00:00 [facility] Influenza Virus 2021-06-11 Completed Universit y of Vaccine 00:00:00 [facility] Influenza Virus 2021-06-11 Completed Universit y of Vaccine Quad .5 mL 00:00:00 [facility] 6+ MO Branch Influenza Virus 2021-06-11 Completed Universit y of Vaccine 00:00:00 [facility] Influenza Virus 2021-06-11 Completed Universit y of Vaccine Quad .5 mL 00:00:00 [facility] 6+ MO Branch Influenza Virus 2021-06-11 Completed Universit y of Vaccine 00:00:00 [facility] Influenza Virus 2021-06-11 Completed Universit y of Vaccine Quad .5 mL 00:00:00 [facility] [facility] IM 6+ MO Branch Influenza Virus 2021-06-11 Completed Universit y of Vaccine 00:00:00 [facility] Influenza Virus 2021-06-11 Completed Universit y of Vaccine Quad .5 mL 00:00:00 [facility] [facility] IM 6+ MO Branch Influenza Virus 2021-06-11 Completed Universit y of Vaccine 00:00:00 [facility] Influenza Virus 2021-06-11 Completed Universit y of Vaccine Quad .5 mL 00:00:00 [facility] [facility] IM 6+ MO Branch Influenza Virus 2021-06-11 Completed Universit y of Vaccine 00:00:00 [facility] Influenza Virus 2021-06-11 Completed Universit y of Vaccine Quad .5 mL 00:00:00 [place] [facility] 6+ MO Branch Influenza Virus 2021-06-11 Completed Universit y of Vaccine 00:00:00 [facility] Influenza Virus 2021-06-11 Completed Universit y of Vaccine Quad .5 mL 00:00:00 [facility] 6+ MO Branch Influenza Virus 2021-06-11 Completed [facility] Vaccine 00:00:00 [facility] Influenza Virus 2021-06-11 Completed [facility] Vaccine Quad .5 mL 00:00:00 [facility] 6+ MO Branch Influenza Virus 2021-06-11 Completed [facility] Vaccine 00:00:00 [facility] Influenza Virus 2021-06-11 Completed [facility] Vaccine Quad .5 mL 00:00:00 [facility] 6+ MO Branch Influenza Virus 2021-06-11 Completed [facility] Vaccine 00:00:00 [facility] Influenza Virus 2021-06-11 Completed [facility] Vaccine Quad .5 mL 00:00:00 [facility] 6+ MO Branch Influenza Virus 2021-06-11 Completed [facility] Vaccine 00:00:00 [facility] Influenza Virus 2021-06-11 Completed [facility] Vaccine Quad .5 mL 00:00:00 [facility] 6+ MO Branch Influenza Virus 2021-06-11 Completed [facility] Vaccine 00:00:00 [facility] Influenza Virus 2021-06-11 Completed [facility] of Vaccine Quad .5 mL 00:00:00 [facility] 6+ MO Branch Influenza Virus 2021-06-11 Completed [facility] Vaccine 00:00:00 [facility] Influenza Virus 2021-06-11 Completed [facility] of Vaccine Quad .5 mL 00:00:00 [facility] 6+ MO Branch Influenza Virus 2021-06-11 Completed [facility] Vaccine 00:00:00 [facility] Influenza Virus 2021-06-11 Completed [facility] of Vaccine Quad .5 mL 00:00:00 [facility] 6+ MO Branch (FLUZONE/FLULAVAL/F LUARIX) Influenza Virus 2021-06-11 Completed [facility] Vaccine 00:00:00 [facility] Influenza Virus 2021-06-11 Completed [facility] Vaccine Quad .5 mL 00:00:00 [facility] 6+ MO Branch (FLUZONE/FLULAVAL/F LUARIX) Influenza Virus 2021-06-11 Completed [facility] Vaccine 00:00:00 [facility] Influenza Virus 2021-06-11 Completed [facility] Vaccine Quad .5 mL 00:00:00 [facility] 6+ MO Branch (FLUZONE/FLULAVAL/F LUARIX) Influenza Virus 2020-05-19 Completed [facility] Vaccine 00:00:00 [facility] Influenza Virus 2020-05-19 Completed [facility] Vaccine 00:00:00 [facility] Influenza Virus 2020-05-19 Completed [facility] Vaccine 00:00:00 [facility] Influenza Virus 2020-05-19 Completed [facility] Vaccine 00:00:00 [facility] Influenza Virus 2020-05-19 Completed [facility] Vaccine 00:00:00 [facility] Influenza Virus 2020-05-19 Completed [facility] Vaccine 00:00:00 [facility] Influenza Virus 2020-05-19 Completed [facility] Vaccine 00:00:00 [facility] Influenza Virus 2020-05-19 Completed [facility] Vaccine 00:00:00 [facility] Influenza Virus 2020-05-19 Completed [facility] Vaccine 00:00:00 [facility] Influenza Virus 2020-05-19 Completed [facility] Vaccine 00:00:00 [facility] Influenza Virus 2020-05-19 Completed [facility] Vaccine 00:00:00 [facility] Influenza Virus 2020-05-19 Completed [facility] Vaccine 00:00:00 [facility] Influenza Virus 2020-05-19 Completed [facility] Vaccine 00:00:00 [facility] Influenza Virus 2020-05-19 Completed [facility] Vaccine 00:00:00 [facility] Influenza Virus 2020-05-19 Completed [facility] Vaccine 00:00:00 [facility] Influenza Virus 2020-05-19 Completed [facility] Vaccine 00:00:00 [facility] Influenza Virus 2020-05-19 Completed [facility] Vaccine 00:00:00 [facility] Influenza Virus 2020-05-19 Completed [facility] Vaccine 00:00:00 [facility] Influenza Virus 2020-05-19 Completed [facility] Vaccine 00:00:00 [facility] Influenza Virus 2020-05-19 Completed [facility] Vaccine 00:00:00 [facility] Influenza Virus 2020-05-19 Completed [facility] Vaccine 00:00:00 [facility] Influenza Virus 2020-05-19 Completed [facility] Vaccine 00:00:00 [facility] Influenza Virus 2020-05-19 Completed [facility] Vaccine 00:00:00 [facility] Influenza Virus 2020-05-19 Completed [facility] Vaccine 00:00:00 [facility] Influenza Virus 2020-05-19 Completed [facility] Vaccine 00:00:00 [facility] Influenza Virus 2020-05-19 Completed [facility] Vaccine 00:00:00 [facility] Influenza Virus 2020-05-19 Completed [facility] Vaccine 00:00:00 [facility] Influenza Virus 2020-05-19 Completed [facility] Vaccine 00:00:00 [facility] Influenza Virus 2020-05-19 Completed [facility] Vaccine 00:00:00 [facility] Influenza Virus 2020-05-19 Completed [facility] Vaccine 00:00:00 [facility] Influenza Virus 2020-05-19 Completed [facility] Vaccine 00:00:00 [facility] Influenza Virus 2020-05-19 Completed [facility] Vaccine 00:00:00 [facility] Influenza Virus 2020-05-19 Completed [facility] Vaccine 00:00:00 [facility] Influenza Virus 2020-05-19 Completed [facility] Vaccine 00:00:00 [facility] Influenza Virus 2020-05-19 Completed [facility] Vaccine 00:00:00 [facility] Influenza Virus 2020-05-19 Completed [facility] Vaccine 00:00:00 [facility] Influenza Virus 2020-05-19 Completed [facility] Vaccine 00:00:00 [facility] Influenza Virus 2020-05-19 Completed [facility] Vaccine 00:00:00 [facility] Influenza Virus 2020-05-19 Completed [facility] Vaccine 00:00:00 [facility] Influenza Virus 2020-05-19 Completed [facility] Vaccine 00:00:00 [facility] Influenza Virus 2020-05-19 Completed [facility] Vaccine 00:00:00 [facility] Influenza Virus 2020-05-19 Completed [facility] Vaccine 00:00:00 [facility] Influenza Virus 2020-05-19 Completed [facility] Vaccine 00:00:00 [facility] Influenza Virus 2020-05-19 Completed [facility] Vaccine 00:00:00 [facility] Influenza Virus 2020-05-19 Completed [facility] Vaccine 00:00:00 [facility] Influenza Virus 2020-05-19 Completed [facility] Vaccine 00:00:00 [facility] Influenza Virus 2020-05-19 Completed [facility] Vaccine 00:00:00 [facility] Influenza Virus 2020-05-19 Completed [facility] Vaccine 00:00:00 [facility] Influenza Virus 2020-05-19 Completed [facility] Vaccine 00:00:00 [facility] Influenza Virus 2020-05-19 Completed [facility] Vaccine 00:00:00 [facility] Influenza Virus 2020-05-19 Completed [facility] Vaccine 00:00:00 [facility] Influenza Virus 2020-05-19 Completed [facility] Vaccine 00:00:00 [facility] Influenza Virus 2020-05-19 Completed [facility] Vaccine 00:00:00 [facility] Influenza Virus 2020-05-19 Completed [facility] Vaccine 00:00:00 [facility] Influenza Virus 2020-05-19 Completed [facility] Vaccine 00:00:00 [facility] Influenza Virus 2020-05-19 Completed [facility] Vaccine 00:00:00 [facility] Influenza Virus 2020-05-19 Completed [facility] Vaccine 00:00:00 [facility] Influenza Virus 2020-05-19 Completed [facility] Vaccine 00:00:00 [facility] Influenza Virus 2020-05-19 Completed [facility] Vaccine 00:00:00 [facility] Influenza Virus 2020-05-19 Completed [facility] Vaccine 00:00:00 [facility] Influenza Virus 2020-05-19 Completed [facility] Vaccine 00:00:00 [facility] Influenza Virus 2020-05-19 Completed [facility] Vaccine 00:00:00 [facility] Influenza Virus 2020-05-19 Completed [facility] Vaccine 00:00:00 [facility] Influenza Virus 2020-05-16 Completed [facility] Vaccine Recomb Quad 00:00:00 [facility], Preserv and ABX Branc h Free 18-64 [...] (ADACEL) 2019-05-21 Completed [facility] of VACCINE 00:00:00 [facility] TDAP (ADACEL) 2019-05-21 Completed [facility] of VACCINE 00:00:00 [facility] TDAP (ADACEL) 2019-05-21 Completed [facility] of VACCINE 00:00:00 [facility] TDAP (ADACEL) 2019-05-21 Completed [facility] of VACCINE 00:00:00 [facility] TDAP (ADACEL) 2019-05-21 Completed [facility] of VACCINE 00:00:00 [facility] TDAP (ADACEL) 2019-05-21 Completed [facility] VACCINE 00:00:00 [facility] TDAP (ADACEL) 2019-05-21 Completed [facility] VACCINE 00:00:00 [facility] TDAP (ADACEL) 2019-05-21 Completed [facility] VACCINE 00:00:00 [facility] TDAP (ADACEL) 2019-05-21 Completed [facility] VACCINE 00:00:00 [facility] TDAP (ADACEL) 2019-05-21 Completed [facility] VACCINE 00:00:00 [facility] TDAP (ADACEL) 2019-05-21 Completed [facility] VACCINE 00:00:00 [facility] TDAP (ADACEL) 2019-05-21 Completed [facility] VACCINE 00:00:00 [facility] TDAP (ADACEL) 2019-05-21 Completed [facility] VACCINE 00:00:00 [facility] TDAP (ADACEL) 2019-05-21 Completed [facility] VACCINE 00:00:00 [facility] TDAP (ADACEL) 2019-05-21 Completed [facility] VACCINE 00:00:00 [facility] TDAP (ADACEL) 2019-05-21 Completed [facility] VACCINE 00:00:00 [facility] TDAP (ADACEL) 2019-05-21 Completed [facility] of VACCINE 00:00:00 [facility] TDAP (ADACEL) 2019-05-21 Completed [facility] VACCINE 00:00:00 [facility] TDAP (ADACEL) 2019-05-21 Completed [facility] VACCINE 00:00:00 [facility] TDAP (ADACEL) 2019-05-21 Completed [facility] of VACCINE 00:00:00 [facility] TDAP (ADACEL) 2019-05-21 Completed [facility] VACCINE 00:00:00 [facility] TDAP (ADACEL) 2019-05-21 Completed [facility] VACCINE 00:00:00 [facility] TDAP (ADACEL) 2019-05-21 Completed [facility] VACCINE 00:00:00 [facility] TDAP (ADACEL) 2019-05-21 Completed [facility] VACCINE 00:00:00 [facility] TDAP (ADACEL) 2019-05-21 Completed [facility] VACCINE 00:00:00 [facility] TDAP (ADACEL) 2019-05-21 Completed [facility] VACCINE 00:00:00 [facility] TDAP (ADACEL) 2019-05-21 Completed [facility] VACCINE 00:00:00 [facility] TDAP (ADACEL) 2019-05-21 Completed [facility] VACCINE 00:00:00 [facility] TDAP (ADACEL) 2019-05-21 Completed [facility] VACCINE 00:00:00 [facility] TDAP (ADACEL) 2019-05-21 Completed [facility] VACCINE 00:00:00 [facility] TDAP (ADACEL) 2019-05-21 Completed [facility] VACCINE 00:00:00 [facility] TDAP (ADACEL) 2019-05-21 Completed [facility] VACCINE 00:00:00 [facility] TDAP (ADACEL) 2019-05-21 Completed [facility] VACCINE 00:00:00 [facility] TDAP (ADACEL) 2019-05-21 Completed [facility] VACCINE 00:00:00 [facility] TDAP (ADACEL) 2019-05-21 Completed [facility] VACCINE 00:00:00 [facility] TDAP (ADACEL) 2019-05-21 Completed University [...] (ADACEL) 2019-05-21 Completed [facility] VACCINE 00:00:00 [facility] TDAP (ADACEL) 2019-05-21 Completed [facility] VACCINE 00:00:00 [facility] TDAP (ADACEL) 2019-05-21 Completed University [...] (ADACEL) 2019-05-21 Completed [facility] of VACCINE 00:00:00 [facility] TDAP (ADACEL) 2019-05-21 Completed University [...] (ADACEL) 2019-05-21 Completed [facility] of VACCINE 00:00:00 [facility] TDAP (ADACEL) 2019-05-21 Completed [facility] VACCINE 00:00:00 [facility] TDAP (ADACEL) 2019-05-21 Completed [facility] of VACCINE 00:00:00 [facility] TDAP (ADACEL) 2019-05-21 Completed [facility] of VACCINE 00:00:00 [facility] TDAP (ADACEL) 2019-05-21 Completed [facility] of VACCINE 00:00:00 [facility] TDAP (ADACEL) 2019-05-21 Completed [facility] of VACCINE 00:00:00 [facility] TDAP (ADACEL) 2019-05-21 Completed [facility] of VACCINE 00:00:00 [facility] TDAP (ADACEL) 2019-05-21 Completed [facility] of VACCINE 00:00:00 [facility] Influenza Virus 2019-02-06 Completed Universit [...] Vaccine Quad .5 mL 00:00:00 [facility] 6+ MO Branch Influenza Virus 2019-02-06 Completed [facility] Vaccine Quad .5 mL 00:00:00 [facility] 6+ MO Branch Influenza Virus 2019-02-06 Completed [facility] Vaccine Quad .5 mL 00:00:00 [facility] 6+ MO Branch Influenza Virus 2019-02-06 Completed [facility] Vaccine Quad .5 mL 00:00:00 [facility] 6+ MO Branch Influenza Virus 2019-02-06 Completed [facility] Vaccine Quad .5 mL 00:00:00 [facility] 6+ MO Branch Influenza Virus 2019-02-06 Completed [facility] Vaccine Quad .5 mL 00:00:00 [facility] 6+ MO Branch Influenza Virus 2019-02-06 [...] Vaccine Quad .5 mL 00:00:00 [facility] 6+ MO [facility] Influenza Virus 2019-02-06 Completed [facility] Vaccine Quad .5 mL 00:00:00 [facility] 6+ MO [facility] Influenza Virus 2019-02-06 Completed [facility] Vaccine Quad .5 mL 00:00:00 [facility] 6+ MO [facility] Influenza Virus 2019-02-06 Completed [facility] Vaccine Quad .5 mL 00:00:00 [facility] 6+ MO [facility] Influenza Virus 2019-02-06 Completed [facility] of Vaccine Quad .5 mL 00:00:00 [facility] 6+ MO Branch Influenza Virus [...] [facility] Vaccine Quad .5 mL [facility] 6+ MO Branch (FLUZONE/FLULAVAL/F LUARIX) TDAP (ADACEL) Unknown Completed [facility] of VACCINE [facility] Influenza Virus Unknown Completed [facility] of Vaccine Recomb Quad [facility], Preserv and ABX Branc h Free 18-64 YRS Influenza Virus Unknown Completed [facility] Vaccine [facility] Influenza Virus Unknown Completed [facility] Vaccine [facility] [place] Influenza Virus Unknown Completed [facility] of Vaccine Quad , [facility] d[facility] Preserv and ABX Branch Free 6 MO-64 YRS (FLUCELVAX) Influenza Virus Unknown Completed [facility] Vaccine Quad .5 mL [facility] 6+ MO [facility] (FLUZONE/FLULAVAL/F LUARIX) Influenza Virus Unknown Completed [facility] Vaccine Quad .5 mL [facility] 6+ MO Branch (FLUZONE/FLULAVAL/F LUARIX) Influenza Virus Unknown Completed [facility] Vaccine Quad .5 mL [facility] 6+ MO Branch (FLUZONE/FLULAVAL/F LUARIX) TDAP (ADACEL) Unknown Completed [facility] of VACCINE [facility] Influenza Virus Unknown Completed [facility] of Vaccine Recomb Quad [facility], Preserv and ABX Branc h Free 18-64 YRS Influenza Virus Unknown Completed [facility] Vaccine [facility] [place] Influenza Virus Unknown Completed [facility] Vaccine [facility] Influenza Virus Unknown Completed [facility] Vaccine Quad , [place] [facility] Preserv and ABX Branch Free 6 MO-64 YRS (FLUCELVAX) Influenza Virus Unknown Completed [facility] Vaccine Quad .5 mL [facility] 6+ MO Branch (FLUZONE/FLULAVAL/F LUARIX) Influenza Virus Unknown Completed [facility] of Vaccine Quad .5 mL [facility] 6+ MO Branch (FLUZONE/FLULAVAL/F LUARIX) Influenza Virus Unknown Completed [facility] of Vaccine Quad .5 mL [facility] IM 6+ MO Branch (FLUZONE/FLULAVAL/F LUARIX) TDAP (ADACEL) Unknown Completed [facility] of VACCINE [facility] Influenza Virus Unknown Completed [facility] of Vaccine Recomb Quad [facility], Preserv and ABX Branc h Free 18-64 YRS Influenza Virus Unknown Completed [facility] y of Vaccine [facility] Influenza Virus Unknown Completed [facility] of Vaccine [facility] Influenza Virus Unknown Completed [facility] of Vaccine Quad .5 mL [facility] 6+ MO Branch (FLUZONE/FLULAVAL/F LUARIX) Influenza Virus Unknown Completed [facility] of Vaccine Quad .5 mL [facility] 6+ MO Branch (FLUZONE/FLULAVAL/F LUARIX) TDAP (ADACEL) Unknown Completed [facility] of VACCINE [facility] Influenza Virus Unknown Completed [facility] of Vaccine Recomb Quad [facility], Preserv and ABX Branc h Free 18-64 YRS Influenza Virus Unknown Completed [facility] y of Vaccine [facility] Influenza Virus Unknown Completed [facility] of Vaccine [facility] Influenza Virus Unknown Completed [facility] of Vaccine Quad .5 mL [facility] 6+ MO Branch (FLUZONE/FLULAVAL/F LUARIX) Influenza Virus Unknown Completed [facility] of Vaccine Quad .5 mL [facility] IM 6+ MO Branch (FLUZONE/FLULAVAL/F LUARIX) TDAP (ADACEL) Unknown Completed [facility] of VACCINE [facility] Influenza Virus Unknown Completed [facility] of Vaccine Recomb Quad [facility], Preserv and ABX Branc h Free 18-64 YRS Influenza Virus Unknown Completed [facility] y of Vaccine [facility] Influenza Virus Unknown Completed [facility] of Vaccine [facility] Influenza Virus Unknown Completed [facility] of Vaccine Quad .5 mL [facility] IM 6+ MO Branch (FLUZONE/FLULAVAL/F LUARIX) Influenza Virus Unknown Completed [facility] of Vaccine Quad .5 mL [facility] 6+ MO Branch (FLUZONE/FLULAVAL/F LUARIX) TDAP (ADACEL) Unknown Completed University VACCINE [facility] Influenza Virus Unknown Completed [facility] Vaccine Recomb Quad [facility], Preserv and ABX Branc h Free 18-64 YRS Influenza Virus Unknown Completed [facility] Vaccine [facility] Influenza Virus Unknown Completed [facility] Vaccine [facility] Influenza Virus Unknown Completed [facility] Vaccine Quad .5 mL [facility] 6+ MO Branch (FLUZONE/FLULAVAL/F LUARIX) Influenza Virus Unknown Completed [facility] of Vaccine Quad .5 mL [facility] 6+ MO Branch (FLUZONE/FLULAVAL/F LUARIX) TDAP (ADACEL) Unknown Completed [facility] of VACCINE [facility] Influenza Virus Unknown Completed [facility] Vaccine Recomb Quad [facility] , Preserv and ABX Branc h Free 18-64 YRS Influenza Virus Unknown Completed [facility] Vaccine [facility] [place] Influenza Virus Unknown Completed [facility] Vaccine [facility] [place] Influenza Virus Unknown Completed [facility] Vaccine Quad .5 mL [facility] 6+ MO Branch (FLUZONE/FLULAVAL/F LUARIX) Influenza Virus Unknown Completed [facility] of Vaccine Quad .5 mL [facility] 6+ MO Branch (FLUZONE/FLULAVAL/F LUARIX) TDAP (ADACEL) Unknown Completed [facility] of VACCINE [facility] Influenza Virus Unknown Completed [facility] of Vaccine Recomb Quad [facility], Preserv and ABX Branc h Free 18-64 YRS Influenza Virus Unknown Completed [facility] Vaccine [facility] Influenza Virus Unknown Completed [facility] Vaccine [facility] Influenza Virus Unknown Completed [facility] Vaccine Quad .5 mL [facility] 6+ MO Branch (FLUZONE/FLULAVAL/F LUARIX) Influenza Virus Unknown Completed [facility] Vaccine Quad .5 mL [facility] 6+ MO Branch (FLUZONE/FLULAVAL/F LUARIX) TDAP (ADACEL) Unknown Completed [facility] of VACCINE [facility] Influenza Virus Unknown Completed [facility] Vaccine Recomb Quad [facility], Preserv and ABX Branc h Free 18-64 YRS Influenza Virus Unknown Completed [facility] Vaccine [facility] Influenza Virus Unknown Completed [facility] Vaccine [facility] Influenza Virus Unknown Completed [facility] Vaccine Quad .5 mL [facility] 6+ MO Branch (FLUZONE/FLULAVAL/F LUARIX) Influenza Virus Unknown Completed [facility] Vaccine Quad .5 mL [facility] 6+ MO Branch (FLUZONE/FLULAVAL/F LUARIX) TDAP (ADACEL) Unknown Completed [facility] of VACCINE [facility] Influenza Virus Unknown Completed [facility] Vaccine Recomb Quad [facility], Preserv and ABX Branc h Free 18-64 YRS Influenza Virus Unknown Completed [facility] Vaccine [facility] Influenza Virus Unknown Completed [facility] Vaccine [facility] Influenza Virus Unknown Completed [facility] Vaccine Quad .5 mL [facility] 6+ MO Branch (FLUZONE/FLULAVAL/F LUARIX) Influenza Virus Unknown Completed [facility] of Vaccine Quad .5 mL [facility] 6+ MO Branch (FLUZONE/FLULAVAL/F LUARIX) TDAP (ADACEL) Unknown Completed [facility] of VACCINE [facility] Influenza Virus Unknown Completed [facility] of Vaccine Recomb Quad [facility], Preserv and ABX Branc h Free 18-64 YRS Influenza Virus Unknown Completed [facility] Vaccine [facility] Influenza Virus Unknown Completed [facility] Vaccine [facility] Influenza Virus Unknown Completed [facility] Vaccine Quad .5 mL [facility] 6+ MO Branch (FLUZONE/FLULAVAL/F LUARIX) Influenza Virus Unknown Completed [facility] of Vaccine Quad .5 mL [facility] 6+ MO Branch (FLUZONE/FLULAVAL/F LUARIX) TDAP (ADACEL) Unknown Completed [facility] of VACCINE [facility] Influenza Virus Unknown Completed [facility] of Vaccine Recomb Quad [facility], Preserv and ABX Branc h Free 18-64 YRS Influenza Virus Unknown Completed [facility] Vaccine [facility] Influenza Virus Unknown Completed [facility] Vaccine [facility] Influenza Virus Unknown Completed [facility] of Vaccine Quad .5 mL [facility] 6+ MO Branch (FLUZONE/FLULAVAL/F LUARIX) Influenza Virus Unknown Completed [facility] of Vaccine Quad .5 mL [facility] 6+ MO Branch (FLUZONE/FLULAVAL/F LUARIX) TDAP (ADACEL) Unknown Completed [facility] of VACCINE [facility] Influenza Virus Unknown Completed [facility] of Vaccine Recomb Quad [facility], Preserv and ABX Branc h Free 18-64 YRS Influenza Virus Unknown Completed [facility] Vaccine [facility] Influenza Virus Unknown Completed [facility] Vaccine [facility] Influenza Virus Unknown Completed [facility] of Vaccine Quad .5 mL [facility] 6+ MO Branch (FLUZONE/FLULAVAL/F LUARIX) Influenza Virus Unknown Completed [facility] of Vaccine Quad .5 mL [facility] 6+ MO Branch (FLUZONE/FLULAVAL/F LUARIX) TDAP (ADACEL) Unknown Completed [facility] of VACCINE [facility] Influenza Virus Unknown Completed [facility] of Vaccine Recomb Quad [facility], Preserv and ABX Branc h Free 18-64 YRS Influenza Virus Unknown Completed [facility] Vaccine [facility] Influenza Virus Unknown Completed [facility] Vaccine [facility] Influenza Virus Unknown Completed [facility] of Vaccine Quad .5 mL [facility] 6+ MO Branch (FLUZONE/FLULAVAL/F LUARIX) Influenza Virus Unknown Completed [facility] of Vaccine Quad .5 mL [facility] 6+ MO Branch (FLUZONE/FLULAVAL/F LUARIX) TDAP (ADACEL) Unknown Completed [facility] of VACCINE [facility] Influenza Virus Unknown Completed [facility] of Vaccine Recomb Quad [facility] , Preserv and ABX Branc h Free 18-64 YRS Influenza Virus Unknown Completed [facility] Vaccine [facility] [place] Influenza Virus Unknown Completed [facility] Vaccine [facility] Influenza Virus Unknown Completed [facility] of Vaccine Quad .5 mL [facility] 6+ MO Branch (FLUZONE/FLULAVAL/F LUARIX) Influenza Virus Unknown Completed [facility] of Vaccine Quad .5 mL [facility] 6+ MO Branch (FLUZONE/FLULAVAL/F LUARIX) TDAP (ADACEL) Unknown Completed [facility] of VACCINE [facility] Influenza Virus Unknown Completed [facility] y of Vaccine Recomb Quad [facility] , Preserv and ABX Branc h Free 18-64 YRS Influenza Virus Unknown Completed [facility] Influenza Virus Unknown Completed [facility] Influenza Virus Unknown Completed [facility] Vaccine Quad .5 mL [facility] IM 6+ MO Branch (FLUZONE/FLULAVAL/F LUARIX) Influenza Virus Unknown Completed [facility] Vaccine Quad .5 mL [facility] IM 6+ MO Branch (FLUZONE/FLULAVAL/F LUARIX) TDAP (ADACEL) Unknown Completed [facility] VACCINE [facility] [place] Influenza Virus Unknown Completed [facility] Vaccine Recomb Quad [facility], Preserv and ABX Branc h Free 18-64 YRS Influenza Virus Unknown Completed [facility] Influenza Virus Unknown Completed [facility] Influenza Virus Unknown Completed [facility] Vaccine Quad .5 mL [facility] IM 6+ MO Branch (FLUZONE/FLULAVAL/F LUARIX) Influenza Virus Unknown Completed [facility] Vaccine Quad .5 mL [facility] IM 6+ MO Branch (FLUZONE/FLULAVAL/F LUARIX) TDAP (ADACEL) Unknown Completed [facility] Influenza Virus Unknown Completed [facility] Vaccine Recomb Quad [facility], Preserv and ABX Branc h Free 18-64 YRS Influenza Virus Unknown Completed [facility] Influenza Virus Unknown Completed [facility] [place] Influenza Virus Unknown Completed [facility] Vaccine Quad .5 mL [facility] IM 6+ MO Branch (FLUZONE/FLULAVAL/F LUARIX) Influenza Virus Unknown Completed [facility] Vaccine Quad .5 mL [facility] IM 6+ MO Branch (FLUZONE/FLULAVAL/F LUARIX) TDAP (ADACEL) Unknown Completed [facility] Influenza Virus Unknown Completed [facility] Vaccine Recomb Quad [facility], Preserv and ABX Branc h Free 18-64 YRS Influenza Virus Unknown Completed [facility] Influenza Virus Unknown Completed [facility] Vaccine Quad .5 mL [facility] IM 6+ MO Branch (FLUZONE/FLULAVAL/F LUARIX) TDAP (ADACEL) Unknown Completed [facility] VACCINE [facility] Influenza Virus Unknown Completed [facility] Vaccine Recomb Quad [facility], Preserv and ABX Branc h Free 18-64 YRS Influenza Virus Unknown Completed [facility] Influenza Virus Unknown Completed [facility] Vaccine Quad .5 mL [facility] IM 6+ MO Branch (FLUZONE/FLULAVAL/F LUARIX) TDAP (ADACEL) Unknown Completed [facility] Influenza Virus Unknown Completed [facility] Vaccine Recomb Quad [facility], Preserv and ABX Branc h Free 18-64 YRS Influenza Virus Unknown Completed [facility] Influenza Virus Unknown Completed [facility] Vaccine Quad .5 mL [facility] IM 6+ MO Branch (FLUZONE/FLULAVAL/F LUARIX) TDAP (ADACEL) Unknown Completed [facility] Influenza Virus Unknown Completed [facility] Vaccine Recomb Quad [facility], Preserv and ABX Branc h Free 18-64 YRS Influenza Virus Unknown Completed [facility] Vaccine [facility] Influenza Virus Unknown Completed [facility] Vaccine Quad .5 mL [facility] IM 6+ MO Branch (FLUZONE/FLULAVAL/F LUARIX) TDAP (ADACEL) Unknown Completed [facility] Influenza Virus Unknown Completed [facility] Vaccine Recomb Quad [facility], Preserv and ABX Branc h Free 18-64 YRS Influenza Virus Unknown Completed [facility] Vaccine [facility] Influenza Virus Unknown Completed [facility] Vaccine Quad .5 mL [facility] IM 6+ MO Branch (FLUZONE/FLULAVAL/F LUARIX) TDAP (ADACEL) Unknown Completed [facility] Influenza Virus Unknown Completed [facility] Vaccine Recomb Quad [facility] IM, Preserv and ABX Branc h Free 18-64 YRS Influenza Virus Unknown Completed [facility] of Vaccine [facility] Influenza Virus Unknown Completed [facility] of Vaccine Quad .5 mL [facility] IM 6+ MO Branch (FLUZONE/FLULAVAL/F LUARIX) TDAP (ADACEL) Unknown Completed [facility] Influenza Virus Unknown Completed [facility] of Vaccine Recomb Quad [facility], Preserv and ABX Branc h Free 18-64 YRS Influenza Virus Unknown Completed [facility] Vaccine [facility] Influenza Virus Unknown Completed [facility] of Vaccine Quad .5 mL [facility] IM 6+ MO Branch (FLUZONE/FLULAVAL/F LUARIX) TDAP (ADACEL) Unknown Completed [facility] Influenza Virus Unknown Completed [facility] Vaccine Recomb Quad [facility], Preserv and ABX Branc h Free 18-64 YRS Influenza Virus Unknown Completed [facility] Vaccine [facility] Influenza Virus Unknown Completed [facility] Vaccine Quad .5 mL [facility] IM 6+ MO Branch (FLUZONE/FLULAVAL/F LUARIX) TDAP (ADACEL) Unknown Completed [facility] Influenza Virus Unknown Completed [facility] Vaccine Recomb Quad [facility], Preserv and ABX Branc h Free 18-64 YRS Influenza Virus Unknown Completed [facility] Vaccine [facility] [place] Influenza Virus Unknown Completed [facility] Vaccine Quad .5 mL [facility] IM 6+ MO Branch (FLUZONE/FLULAVAL/F LUARIX) TDAP (ADACEL) Unknown Completed [facility] Influenza Virus Unknown Completed [facility] Vaccine Recomb Quad [facility], Preserv and ABX Branc h Free 18-64 YRS Influenza Virus Unknown Completed [facility] Vaccine [facility] [place] Influenza Virus Unknown Completed [facility] Vaccine Quad .5 mL [facility] IM 6+ MO Branch (FLUZONE/FLULAVAL/F LUARIX) TDAP (ADACEL) Unknown Completed [facility] Influenza Virus Unknown Completed [facility] Vaccine Recomb Quad [facility], Preserv and ABX Branc h Free 18-64 YRS Influenza Virus Unknown Completed [facility] Vaccine [facility] Influenza Virus Unknown Completed [facility] of Vaccine Quad .5 mL [facility] IM 6+ MO Branch (FLUZONE/FLULAVAL/F LUARIX) TDAP (ADACEL) Unknown Completed [facility] Influenza Virus Unknown Completed [facility] Vaccine Recomb Quad [facility], Preserv and ABX Branc h Free 18-64 YRS Influenza Virus Unknown Completed [facility] Vaccine [facility] Influenza Virus Unknown Completed [facility] of Vaccine Quad .5 mL [facility] IM 6+ MO Branch (FLUZONE/FLULAVAL/F LUARIX) TDAP (ADACEL) Unknown Completed [facility] Influenza Virus Unknown Completed [facility] Vaccine Recomb Quad [facility], Preserv and ABX Branc h Free 18-64 YRS Influenza Virus Unknown Completed [facility] Vaccine [facility] Influenza Virus Unknown Completed [facility] Vaccine Quad .5 mL [facility] IM 6+ MO Branch (FLUZONE/FLULAVAL/F LUARIX) TDAP (ADACEL) Unknown Completed [facility] Influenza Virus Unknown Completed [facility] Vaccine Recomb Quad [facility], Preserv and ABX Branc h Free 18-64 YRS Influenza Virus Unknown Completed [facility] Vaccine [facility] Influenza Virus Unknown Completed [facility] Vaccine Quad .5 mL [facility] IM 6+ MO Branch (FLUZONE/FLULAVAL/F LUARIX) TDAP (ADACEL) Unknown Completed [facility] VACCINE [facility] Influenza Virus Unknown Completed [facility] Vaccine Recomb Quad [facility], Preserv and ABX Branc h Free 18-64 YRS Influenza Virus Unknown Completed [facility] Influenza Virus Unknown Completed [facility] Vaccine Quad .5 mL [facility] IM 6+ MO Branch (FLUZONE/FLULAVAL/F LUARIX) TDAP (ADACEL) Unknown Completed [facility] Influenza Virus Unknown Completed [facility] Vaccine Recomb Quad [facility], Preserv and ABX Branc h Free 18-64 YRS Influenza Virus Unknown Completed [facility] Influenza Virus Unknown Completed [facility] Vaccine Quad .5 mL [facility] IM 6+ MO Branch (FLUZONE/FLULAVAL/F LUARIX) TDAP (ADACEL) Unknown Completed [facility] Influenza Virus Unknown Completed [facility] Vaccine Recomb Quad [facility], Preserv and ABX Branc h Free 18-64 YRS Influenza Virus Unknown Completed [facility] Vaccine [facility] [place] Influenza Virus Unknown Completed [facility] Vaccine Quad .5 mL [facility] IM 6+ MO Branch (FLUZONE/FLULAVAL/F LUARIX) TDAP (ADACEL) Unknown Completed [facility] Influenza Virus Unknown Completed [facility] Vaccine Recomb Quad [facility], Preserv and ABX Branc h Free 18-64 YRS Influenza Virus Unknown Completed [facility] Vaccine [facility] Influenza Virus Unknown Completed [facility] of Vaccine Quad .5 mL [facility] IM 6+ MO Branch (FLUZONE/FLULAVAL/F LUARIX) TDAP (ADACEL) Unknown Completed [facility] Influenza Virus Unknown Completed [facility] Vaccine Recomb Quad [facility], Preserv and ABX Branc h Free 18-64 YRS Influenza Virus Unknown Completed [facility] Vaccine [facility] [place] Influenza Virus Unknown Completed [facility] Vaccine Quad .5 mL [facility] IM 6+ MO Branch (FLUZONE/FLULAVAL/F LUARIX) TDAP (ADACEL) Unknown Completed [facility] Influenza Virus Unknown Completed [facility] Vaccine Recomb Quad [facility], Preserv and ABX Branc h Free 18-64 YRS Influenza Virus Unknown Completed [facility] Vaccine [facility] [place] Influenza Virus Unknown Completed [facility] Vaccine Quad .5 mL [facility] IM 6+ MO Branch (FLUZONE/FLULAVAL/F LUARIX) TDAP (ADACEL) Unknown Completed [facility] Influenza Virus Unknown Completed [facility] Vaccine Recomb Quad [facility], Preserv and ABX Branc h Free 18-64 YRS Influenza Virus Unknown Completed [facility] Vaccine [facility] Influenza Virus Unknown Completed [facility] Vaccine Quad .5 mL [facility] IM 6+ MO Branch (FLUZONE/FLULAVAL/F LUARIX) TDAP (ADACEL) Unknown Completed [facility] Influenza Virus Unknown Completed [facility] Vaccine Recomb Quad [facility], Preserv and ABX Branc h Free 18-64 YRS Influenza Virus Unknown Completed [facility] Vaccine [facility] Influenza Virus Unknown Completed [facility] Vaccine Quad .5 mL [facility] IM 6+ MO Branch (FLUZONE/FLULAVAL/F LUARIX) TDAP (ADACEL) Unknown Completed [facility] Influenza Virus Unknown Completed [facility] of Vaccine Recomb Quad [facility], Preserv and ABX Branc h Free 18-64 YRS Influenza Virus Unknown Completed [facility] Vaccine [facility] Influenza Virus Unknown Completed [facility] of Vaccine Quad .5 mL [facility] IM 6+ MO Branch (FLUZONE/FLULAVAL/F LUARIX) TDAP (ADACEL) Unknown Completed [facility] Influenza Virus Unknown Completed [facility] of Vaccine Recomb Quad [facility], Preserv and ABX Branc h Free 18-64 YRS Influenza Virus Unknown Completed [facility] Vaccine [facility] Influenza Virus Unknown Completed [facility] of Vaccine Quad .5 mL [facility] IM 6+ MO Branch (FLUZONE/FLULAVAL/F LUARIX) TDAP (ADACEL) Unknown Completed [facility] Influenza Virus Unknown Completed [facility] Vaccine Recomb Quad [facility], Preserv and ABX Branc h Free 18-64 YRS Influenza Virus Unknown Completed [facility] Vaccine [facility] Influenza Virus Unknown Completed [facility] of Vaccine Quad .5 mL [facility] IM 6+ MO Branch (FLUZONE/FLULAVAL/F LUARIX) TDAP (ADACEL) Unknown Completed [facility] Influenza Virus Unknown Completed [facility] of Vaccine Recomb Quad [facility] IM, Preserv and ABX Branc h Free 18-64 YRS Influenza Virus Unknown Completed [facility] Vaccine [facility] [place] Influenza Virus Unknown Completed [facility] Vaccine Quad .5 mL [facility] IM 6+ MO Branch (FLUZONE/FLULAVAL/F LUARIX) TDAP (ADACEL) Unknown Completed [facility] Influenza Virus Unknown Completed [facility] of Vaccine Recomb Quad [facility], Preserv and ABX Branc h Free 18-64 YRS Influenza Virus Unknown Completed [facility] Vaccine [facility] [place] Influenza Virus Unknown Completed [facility] Vaccine Quad .5 mL [facility] IM 6+ MO Branch (FLUZONE/FLULAVAL/F LUARIX) TDAP (ADACEL) Unknown Completed [facility] Influenza Virus Unknown Completed [facility] Vaccine Recomb Quad [facility], Preserv and ABX Branc h Free 18-64 YRS Influenza Virus Unknown Completed [facility] Vaccine [facility] Influenza Virus Unknown Completed [facility] of Vaccine Quad .5 mL [facility] IM 6+ MO Branch (FLUZONE/FLULAVAL/F LUARIX) TDAP (ADACEL) Unknown Completed [facility] Influenza Virus Unknown Completed [facility] Vaccine Recomb Quad [facility], Preserv and ABX Branc h Free 18-64 YRS Influenza Virus Unknown Completed [facility] Vaccine [facility] Influenza Virus Unknown Completed [facility] of Vaccine Quad .5 mL [facility] IM 6+ MO Branch (FLUZONE/FLULAVAL/F LUARIX) TDAP (ADACEL) Unknown Completed [facility] Influenza Virus Unknown Completed [facility] Vaccine Recomb Quad [facility] IM, Preserv and ABX Branc h Free 18-64 YRS Influenza Virus Unknown Completed [facility] Vaccine [facility] [place] Influenza Virus Unknown Completed [facility] Vaccine Quad .5 mL [facility] IM 6+ MO Branch (FLUZONE/FLULAVAL/F LUARIX) TDAP (ADACEL) Unknown Completed [facility] Influenza Virus Unknown Completed [facility] Vaccine Recomb Quad [facility] IM, Preserv and ABX Branc h Free 18-64 YRS Influenza Virus Unknown Completed [facility] Vaccine [facility] Influenza Virus Unknown Completed [facility] of Vaccine Quad .5 mL [facility] IM 6+ MO Branch (FLUZONE/FLULAVAL/F LUARIX) TDAP (ADACEL) Unknown Completed [facility] Influenza Virus Unknown Completed [facility] Vaccine Recomb Quad [facility], Preserv and ABX Branc h Free 18-64 YRS Influenza Virus Unknown Completed [facility] Influenza Virus Unknown Completed [facility] Vaccine Quad .5 mL [facility] IM 6+ MO Branch (FLUZONE/FLULAVAL/F LUARIX) TDAP (ADACEL) Unknown Completed [facility] Influenza Virus Unknown Completed [facility] Vaccine Recomb Quad [facility], Preserv and ABX Branc h Free 18-64 YRS Influenza Virus Unknown Completed [facility] Influenza Virus Unknown Completed [facility] of Vaccine Quad .5 mL [facility] IM 6+ MO Branch (FLUZONE/FLULAVAL/F LUARIX) TDAP (ADACEL) Unknown Completed [facility] Influenza Virus Unknown Completed [facility] of Vaccine Recomb Quad [facility], Preserv and ABX Branc h Free 18-64 YRS Influenza Virus Unknown Completed [facility] y of Vaccine [facility] Influenza Virus Unknown Completed [facility] of Vaccine Quad .5 mL [facility] IM 6+ MO Branch (FLUZONE/FLULAVAL/F LUARIX) TDAP (ADACEL) Unknown Completed [facility] Influenza Virus Unknown Completed [facility] of Vaccine Recomb Quad [facility], Preserv and ABX Branc h Free 18-64 YRS Influenza Virus Unknown Completed [facility] Vaccine [facility] Influenza Virus Unknown Completed [facility] of Vaccine Quad .5 mL [facility] IM 6+ MO Branch (FLUZONE/FLULAVAL/F LUARIX) TDAP (ADACEL) Unknown Completed [facility] Influenza Virus Unknown Completed [facility] Vaccine Recomb Quad [facility] IM, Preserv and ABX Branc h Free 18-64 YRS Influenza Virus Unknown Completed [facility] Vaccine [facility] Influenza Virus Unknown Completed [facility] Vaccine Quad .5 mL [facility] IM 6+ MO Branch (FLUZONE/FLULAVAL/F LUARIX) TDAP (ADACEL) Unknown Completed [facility] Influenza Virus Unknown Completed [facility] of Vaccine Quad .5 mL [facility] IM 6+ MO Branch (FLUZONE/FLULAVAL/F LUARIX) TDAP (ADACEL) Unknown Completed [facility] Influenza Virus Unknown Completed [facility] of Vaccine Quad .5 mL [facility] IM 6+ MO Branch (FLUZONE/FLULAVAL/F LUARIX) TDAP (ADACEL) Unknown Completed [facility] Influenza Virus Unknown Completed [facility] of Vaccine Quad .5 mL [facility] IM 6+ MO Branch (FLUZONE/FLULAVAL/F LUARIX) TDAP (ADACEL) Unknown Completed [facility] Influenza Virus Unknown Completed [facility] Vaccine Quad .5 mL [facility] IM 6+ MO Branch (FLUZONE/FLULAVAL/F LUARIX) TDAP (ADACEL) Unknown Completed [facility] Influenza Virus Unknown Completed [facility] of Vaccine Quad .5 mL [facility] IM 6+ MO Branch (FLUZONE/FLULAVAL/F LUARIX) TDAP (ADACEL) Unknown Completed [facility] Influenza Virus Unknown Completed [facility] Vaccine Quad .5 mL [facility] IM 6+ MO Branch (FLUZONE/FLULAVAL/F LUARIX) TDAP (ADACEL) Unknown Completed [facility] Influenza Virus Unknown Completed [facility] Vaccine Quad .5 mL [facility] IM 6+ MO Branch (FLUZONE/FLULAVAL/F LUARIX) TDAP (ADACEL) Unknown Completed [facility] Influenza Virus Unknown Completed [facility] of Vaccine Quad .5 mL [facility] IM 6+ MO Branch (FLUZONE/FLULAVAL/F LUARIX) TDAP (ADACEL) Unknown Completed [facility] Vital Signs Vital Name Observation Time Observation Value Comments Source Systolic blood 2023-01-15 16:56:00 [facility] Diastolic blood 2023-01-15 16:56:00 91 mm[facility]Hg[facility] Heart rate 2023-01-15 16:56:00 67 [facility] Body temperature 2023-01-15 16:56:00 36.78 Irene [facility]23-01-15 16:56:00 [facility] in 2023-01-15 16:56:00 100 /min [facility] Arterial blood by [facility] Pulse oximetry Branch Body height 2023-01-12 09:05:00 154.9 cm [facility] Body weight 2023-01-12 09:05:00 58.968 kg [facility] BMI 2023-01-12 09:05:00 24.56 kg/m2 [facility] Systolic blood 2022-11-21 21:40:00 122 mm[Hg] Univer sity of pressure [facility] Diastolic blood 2022-11-21 21:40:00 90 mm[Hg] Unive rsity of pressure [facility] Heart rate 2022-11-21 21:40:00 92 /min [facility] Respiratory rate 2022-11-21 21:40:00 16 /min [facility] ersity of [facility] Oxygen saturation in 2022-11-21 21:40:00 99 /min [facility] by [facility] P[facility]xim[facility] Body temperature 2022-11-21 18:07:00 37.28 Irene [facility] ersity [facility] Body weight 2022-11-21 18:07:00 68.04 kg [facility] BMI 2022-11-21 18:07:00 28.34 kg/m2 [facility] Systolic blood 2022-09-05 17:22:00 139 mm[Hg] Univer sity of pressure [facility] Diastolic blood 2022-09-05 17:22:00 91 mm[Hg] Unive rsity of pressure [facility] Heart rate 2022-09-05 17:22:00 120 /min [facility] Respiratory rate 2022-09-05 17:22:00 18 /min [facility] ersity [facility] Oxygen saturation in 2022-09-05 17:22:00 99 /min [facility]ial blood by [facility] Pulse oxim[facility] Body temperature 2022-09-05 13:43:00 37.11 Irene [facility] ers[facility] Body weight 2022-09-05 13:43:00 68.04 kg [facility] BMI 2022-09-05 13:43:00 28.34 kg/m2 [facility] Systolic blood 2022-08-01 00:49:00 138 mm[Hg] Univer sity of pressure [facility] Diastolic blood 2022-08-01 00:49:00 104 mm[Hg] Unive rsity of pressure [facility] Heart rate 2022-08-01 00:49:00 108 /min [facility] Respiratory rate 2022-08-01 00:49:00 18 /min Univ ersity of [facility] Oxygen saturation in 2022-08-01 00:49:00 99 /min [facility]ial blood by [facility] Pulse oxim[facility] Body temperature 2022-07-31 22:52:00 37.11 Irene [facility] ers[facility] Body height 2022-07-31 22:52:00 154.9 cm [facility] Body weight 2022-07-31 22:52:00 68.04 kg [facility] BMI 2022-07-31 22:52:00 28.34 kg/m2 [facility] Systolic blood 2022-07-15 15:32:00 130 mm[Hg] Univer sity of pressure [facility] Diastolic blood 2022-07-15 15:32:00 90 mm[Hg] Unive rsity of pressure [facility] Heart rate 2022-07-15 15:31:00 81 /min [facility] Body temperature 2022-07-15 15:31:00 36.94 Irene [facility] ers[facility] Respiratory rate 2022-07-15 15:31:00 16 /min Univ ersity of [facility] Body weight 2022-07-15 15:31:00 68.493 kg [facility] BMI 2022-07-15 15:31:00 28.53 kg/m2 [facility] Oxygen saturation in 2022-07-15 15:31:00 99 /min [facility] of Arterial blood by [facility] yessi Pulse oximetry Branch Systolic blood 2022-06-23 15:26:00 111 mm[Hg] Univer sity of pressure [facility] Diastolic blood 2022-06-23 15:26:00 75 mm[Hg] Unive rsity of pressure [facility] Heart rate 2022-06-23 15:26:00 108 /min [facility] Body temperature 2022-06-23 15:26:00 36.83 Irene [facility] ers[facility] Respiratory rate 2022-06-23 15:26:00 18 /min [facility] ersity of [facility] Body height 2022-06-23 15:26:00 154.9 cm [facility] Body weight 2022-06-23 15:26:00 71.385 kg [facility] BMI 2022-06-23 15:26:00 29.74 kg/m2 [facility] Oxygen saturation in 2022-06-23 15:26:00 99 /min [facility] of Arterial blood by [facility] yessi Pulse oximetry Branch Systolic blood 2022-05-05 22:05:00 126 mm[Hg] Univer sity of pressure [facility] Diastolic blood 2022-05-05 22:05:00 75 mm[Hg] Unive rsity of pressure [facility] Heart rate 2022-05-05 22:05:00 99 /min [facility] Respiratory rate 2022-05-05 22:05:00 16 /min Univ ersity of [facility] Oxygen saturation in 2022-05-05 22:05:00 99 /min [facility] of Arterial blood by [facility] Pulse oximetry Branch Body temperature 2022-05-05 18:24:00 37.11 Irene [facility] ers[facility] Body height 2022-05-05 18:24:00 154.9 cm [facility] Body weight 2022-05-05 18:24:00 54.432 kg [facility] BMI 2022-05-05 18:24:00 22.67 kg/m2 [facility] Systolic blood 2022-04-26 14:28:00 135 mm[Hg] Univer sity of pressure [facility] Diastolic blood 2022-04-26 14:28:00 95 mm[Hg] Unive rsity of pressure [facility] Heart rate 2022-04-26 14:28:00 93 /min [facility] Body temperature 2022-04-26 14:28:00 36.89 Irene Univ ersity [facility] Respiratory rate 2022-04-26 14:28:00 18 /min [facility] Body height 2022-04-26 14:28:00 154.9 cm [facility] Body weight 2022-04-26 14:28:00 54.432 kg [facility] BMI 2022-04-26 14:28:00 22.67 kg/m2 [facility] Oxygen saturation in 2022-04-26 14:28:00 100 /min [facility] Arterial blood by [facility] Pulse oximetry Branch Systolic blood 2022-04-26 00:21:00 151 mm[Hg] [facility] Diastolic blood 2022-04-26 00:21:00 98 mm[Hg] [facility] Heart rate 2022-04-26 00:21:00 98 /min [facility] Body temperature 2022-04-26 00:21:00 36.72 Irene [facility] Respiratory rate 2022-04-26 00:21:00 18 /min [facility] Body height 2022-04-26 00:21:00 154.9 cm [facility] Body weight 2022-04-26 00:21:00 54.432 kg [facility] BMI 2022-04-26 00:21:00 22.67 kg/m2 [facility] Oxygen saturation in 2022-04-26 00:21:00 100 /min [facility] Arterial blood by [facility] Pulse oximetry Branch Systolic blood 2022-04-09 14:39:00 122 mm[Hg] [facility] Diastolic blood 2022-04-09 14:39:00 84 mm[Hg] [facility] Heart rate 2022-04-09 14:39:00 96 /min [facility] Body height 2022-04-09 14:39:00 154.9 cm [facility] Body weight 2022-04-09 14:39:00 60.328 kg [facility] BMI 2022-04-09 14:39:00 25.13 kg/m2 [facility] Oxygen saturation in 2022-04-09 14:39:00 98 /min [facility] Arterial blood by [facility] yessi Pulse oximetry Branch Systolic blood 2022-04-07 22:43:36 131 mm[Hg] [facility] Diastolic blood 2022-04-07 22:43:36 83 mm[Hg] [facility] Heart rate 2022-04-07 22:43:36 113 /min [facility] Respiratory rate 2022-04-07 22:43:36 18 /min [facility] Oxygen saturation in 2022-04-07 22:43:36 97 /min [facility] by [place] [employer] [facility] Pulse oximetry Branch Body temperature 2022-04-07 19:41:00 37.17 Irene [facility] Body height 2022-04-07 19:41:00 154.9 cm [facility] Body weight 2022-04-07 19:41:00 60.328 kg [facility] BMI 2022-04-07 19:41:00 25.13 kg/m2 [facility] Systolic blood 2022-03-24 19:00:00 125 mm[Hg] [facility] Diastolic blood 2022-03-24 19:00:00 86 mm[Hg] [facility] Heart rate 2022-03-24 19:00:00 93 /min [facility] Respiratory rate 2022-03-24 19:00:00 17 /min [facility] Oxygen saturation in 2022-03-24 19:00:00 97 /min [facility] Arterial blood by [facility] yessi Pulse oximetry Branch Body temperature 2022-03-24 13:33:00 36.78 Irene [facility] Systolic blood 2022-03-15 19:23:00 128 mm[Hg] [facility] Diastolic blood 2022-03-15 19:23:00 89 mm[Hg] [facility] Heart rate 2022-03-15 19:23:00 104 /min [facility] Body weight 2022-03-15 19:23:00 60.328 kg [facility] BMI 2022-03-15 19:23:00 25.13 kg/m2 [facility] Oxygen saturation in 2022-03-15 19:23:00 98 /min [facility] [place] [facility] Pulse oxim[facility] Systolic blood 2022-03-15 15:02:00 115 mm[Hg] [facility] Diastolic blood 2022-03-15 15:02:00 70 mm[Hg] [facility] Heart rate 2022-03-15 15:02:00 85 /min [facility] Respiratory rate 2022-03-15 15:02:00 20 /min [facility] Oxygen saturation in 2022-03-15 15:02:00 99 /min [facility] Arterial blood by [facility] yessi Pulse oximetry Branch Body temperature 2022-03-15 13:38:00 36.94 Irene [facility] Body height 2022-03-15 13:38:00 154.9 cm [facility] Body weight 2022-03-15 13:38:00 54.432 kg [facility] BMI 2022-03-15 13:38:00 22.67 kg/m2 [facility] Systolic blood 2022-03-11 16:30:00 124 mm[Hg] [facility] Diastolic blood 2022-03-11 16:30:00 88 mm[Hg] [facility] Heart rate 2022-03-11 16:30:00 93 /min [facility] Body temperature 2022-03-11 16:30:00 36.67 Irene [facility] Respiratory rate 2022-03-11 16:30:00 14 /min [facility] Oxygen saturation in 2022-03-11 16:30:00 100 /min [facility] by [place] [employer] [facility] Pulse oximetry Branch Body height 2022-03-11 14:19:00 154.9 cm [facility] Body weight 2022-03-11 14:19:00 58.968 kg [facility] BMI 2022-03-11 14:19:00 24.56 kg/m2 [facility] Systolic blood 2022-02-27 14:14:00 140 mm[Hg] [facility] Diastolic blood 2022-02-27 14:14:00 90 [...] 99 /min [facility] [place] [facility] Pulse oximetry [facility] Systolic blood 2022-02-21 08:06:00 135 mm[Hg] [facility] Diastolic blood 2022-02-21 08:06:00 97 mm[Hg] [facility] Heart rate 2022-02-21 08:06:00 98 /min [facility] Respiratory rate 2022-02-21 08:06:00 16 /min [facility] Oxygen saturation in 2022-02-21 08:06:00 97 /min [facility] [place] [facility] Pulse oxim[facility] Body temperature 2022-02-21 06:16:00 36.94 Irene [facility] Body height 2022-02-21 06:16:00 154.9 cm [facility] Body weight 2022-02-21 06:16:00 60.963 kg [facility] BMI 2022-02-21 06:16:00 25.39 kg/m2 [facility] Systolic blood 2022 20:08:00 136 mm[Hg] [facility] Diastolic blood 2022 20:08:00 96 mm[Hg] [facility] Heart rate 2022 20:08:00 100 /min [facility] Respiratory rate 2022 20:08:00 20 /min [facility] Oxygen saturation in 2022 20:08:00 98 /min [facility] Arterial blood by [employer] Pulse oximetry Branch Body temperature 2022 16:56:00 37.06 Irene [facility] Body weight 2022 16:56:00 54.432 kg [facility] BMI 2022 16:56:00 22.67 kg/m2 [facility] Systolic blood 2022-02-05 14:31:00 128 mm[Hg] [facility] Diastolic blood 2022-02-05 14:31:00 84 mm[Hg] [facility] Heart rate 2022-02-05 14:31:00 86 /min [facility] Body temperature 2022-02-05 14:31:00 37.89 Irene [facility] Respiratory rate 2022-02-05 14:31:00 18 /min [facility] Body height 2022-02-05 14:31:00 154.9 cm [facility] Body weight 2022-02-05 14:31:00 54.432 kg [facility] BMI 2022-02-05 14:31:00 22.67 kg/m2 [facility] Oxygen saturation in 2022-02-05 14:31:00 98 /min [facility] Arterial blood by [facility] Pulse oximetry Branch Systolic blood 2022-01-18 14:50:00 144 mm[Hg] [facility] Diastolic blood 2022-01-18 14:50:00 92 mm[Hg] [facility] Heart rate 2022-01-18 14:50:00 94 /min [facility] Respiratory rate 2022-01-18 14:50:00 20 /min [facility] Oxygen saturation in 2022-01-18 14:50:00 99 /min [facility] Arterial blood by [facility] Pulse oximetry Branch Body weight 2022-01-18 10:18:00 54.432 kg [facility] BMI 2022-01-18 10:18:00 22.67 kg/m2 [facility] Body temperature 2022-01-18 10:15:00 36.72 Irene [facility] Systolic blood 2022-01-15 15:48:26 125 mm[Hg] [facility] Diastolic blood 2022-01-15 15:48:26 85 mm[Hg] [facility] Heart rate 2022-01-15 15:48:26 95 /min [facility] Respiratory rate 2022-01-15 15:48:26 18 /min [facility] Oxygen saturation in 2022-01-15 15:48:26 98 /min [facility] Arterial blood by [facility] Pulse oximetry Branch Body temperature 2022-01-15 13:32:00 37.11 Irene [facility] Body height 2022-01-15 13:32:00 154.9 cm [facility] Body weight 2022-01-15 13:32:00 54.432 kg [facility] BMI 2022-01-15 13:32:00 22.67 kg/m2 [facility] Systolic blood 2022-01-09 00:37:11 127 mm[Hg] [facility] Diastolic blood 2022-01-09 00:37:11 90 mm[Hg] [facility] Heart rate 2022-01-09 00:37:11 94 /min [facility] Body temperature 2022-01-09 00:37:11 37.11 Irene [facility] Respiratory rate 2022-01-09 00:37:11 16 /min [facility] Oxygen saturation in 2022-01-09 00:37:11 97 /min [facility] Arterial blood by [facility] Pulse oximetry Branch Body height 2022-01-08 23:03:00 154.9 cm [facility] Body weight 2022-01-08 23:03:00 58.06 kg [facility] BMI 2022-01-08 23:03:00 24.19 kg/m2 [facility] Systolic blood 2021-12-12 18:00:00 126 mm[Hg] [facility] Diastolic blood 2021-12-12 18:00:00 87 mm[Hg] [facility] Heart rate 2021-12-12 18:00:00 86 /min [facility] Body temperature 2021-12-12 18:00:00 36.89 Irene [facility] Respiratory rate 2021-12-12 18:00:00 18 /min [facility] Body height 2021-12-12 18:00:00 154.9 cm [facility] Body weight 2021-12-12 18:00:00 57.153 kg [facility] BMI 2021-12-12 18:00:00 23.81 kg/m2 [facility] Systolic blood 2023-01-14 16:32:00 138 mm[Hg] [facility] Diastolic blood 2023-01-14 16:32:00 84 mm[Hg] [facility] Heart rate 2023-01-14 16:32:00 67 /min [facility] Body temperature 2023-01-14 16:32:00 36.5 Irene [facility] Respiratory rate 2023-01-14 16:32:00 16 /min [facility] Oxygen saturation in 2023-01-14 16:32:00 99 /min [facility]terial blood by [facility] Pulse oximetry [place] Body height 2023-01-12 09:05:00 154.9 cm [facility] Body weight 2023-01-12 09:05:00 58.968 kg [facility] BMI 2023-01-12 09:05:00 24.56 kg/m2 [facility] Procedures Procedure Date / Time Performing Clinician Source Performed PHOSPHORUS 2023-01-15 08:15:00 Benita Rockwell [facility] MAGNESIUM 2023-01-15 08:15:00 Benita Rockwell [facility] BASIC METABOLIC PANEL 2023-01-15 08:15:00 Benita Rockwell [facility] versity [facility] (NA, K, CL, CO2, GLUCOSE, Medica l Branch BUN, CREATININE, CA) CBC WITH DIFF 2023-01-15 08:15:00 Benita Rockwell [facility] PROTHROMBIN TIME / INR 2023-01-15 08:15:00 [facility] 2023-01-14 10:14:00 Benita Rockwell [facility] PHOSPHORUS 2023-01-14 10:14:00 Benita Rockwell Daphnie [facility] BASIC METABOLIC PANEL 2023-01-14 10:14:00 Benita Rockwell [facility] (NA, K, CL, CO2, GLUCOSE, Medica l Branch BUN, CREATININE, CA) CBC WITH DIFF 2023-01-14 10:14:00 Benita Rockwell [facility] PHOSPHORUS 2023-01-14 10:14:00 Benita Rockwell [facility] MAGNESIUM 2023-01-14 10:14:00 Benita Rockwell [facility] BASIC METABOLIC PANEL 2023-01-14 10:14:00 Benita Rockwell [facility] (NA, K, CL, CO2, GLUCOSE, Medica l Branch BUN, CREATININE, CA) CBC WITH DIFF 2023-01-14 10:14:00 Hill, Benita [facility] CBC WITH DIFF 2023-01-13 10:45:00 Vaishnavi, [facility] BASIC METABOLIC PANEL 2023-01-13 10:45:00 Vaishnavi, [facility] (NA, K, CL, CO2, GLUCOSE, Medica l Branch BUN, CREATININE, CA) MAGNESIUM 2023-01-13 10:45:00 Vaishnavi, [facility] PHOSPHORUS 2023-01-13 10:45:00 Vaishnavi, [facility] HEPATIC FUNCTION PANEL 2023-01-13 10:45:00 Vaishnavi, [facility] ([id number]) (ALB,T.PRO,BILI Medical Branch T,BU/BC,ALT,AST,ALK PHOS) PHOSPHORUS 2023-01-13 10:45:00 Vaishnavi, [facility] MAGNESIUM 2023-01-13 10:45:00 Vaishnavi, [facility] HEPATIC FUNCTION PANEL 2023-01-13 10:45:00 Vaishnavi, [facility] ([id number]) (ALB,T.PRO,BILI Medical [place] T,BU/BC,ALT,AST,ALK PHOS) BASIC METABOLIC PANEL 2023-01-13 10:45:00 Vaishnavi, [facility] (NA, K, CL, CO2, GLUCOSE, Medica l Branch BUN, CREATININE, CA) CBC WITH DIFF 2023-01-13 10:45:00 Vaishnavi, [facility] GLUCOSE BODY FLUID 2023-01-12 20:44:00 VaishnaviRodolfo wade [facility] BODY FLUID MANUAL DIFF 2023-01-12 20:44:00 Vaishnavi, [facility] T.PROTEIN BODY FLUID 2023-01-12 20:44:00 Rodolfo Riggins [facility] ASPIRATE OR ABSCESS 2023-01-12 20:44:00 VaishnaviRodolfo wade [facility] CULTURE(AEROBIC/ANAEROBIC Medica l Branch ) [facility] TOTAL BODY FLUID 2023-01-12 20:44:00 VaishnaviRodolfo wade [facility] GLUCOSE BODY FLUID 2023-01-12 20:44:00 Vaishnavi, [facility] BODY FLUID 2023-01-12 20:44:00 VaishnaviRodolfo [facility] BODY FLUID DIRECT COUNT 2023-01-12 20:44:00 VaishnaviRodolfo l [facility] ASPIRATE OR ABSCESS 2023-01-12 20:44:00 [facility] ) [facility] TOTAL BODY FLUID 2023-01-12 20:44:00 VaishnaviRodolfo [facility] PROTHROMBIN TIME / INR 2023-01-12 08:13:00 VaishnaviRodolfo [facility] PROTHROMBIN TIME / INR 2023-01-12 08:13:00 Vaishnavi, Rodolfo Sanchez [facility] COMP. METABOLIC PANEL 2023-01-12 03:49:00 Ciera García [facility] ([id number]) [facility] COMP. METABOLIC PANEL 2023-01-12 03:49:00 Ciera García [facility] ([id number]) [facility] CT ABDOMEN PELVIS W 2023-01-12 03:32:06 Ciera García [facility] CONTRAST [facility] CT ABDOMEN PELVIS W 2023-01-12 03:32:06 Ciera García [facility] POCT TEST 2023-01-12 03:02:00 Ciera García [facility] POCT TEST 2023-01-12 03:02:00 Ciera García [facility] URINALYSIS 2023-01-12 02:56:00 Ciera García [facility] LIPASE 2023-01-12 02:56:00 Ricky [facility] TOTAL BETA HCG ASSAY 2023-01-12 02:56:00 Ciera García [facility] CBC WITH DIFF 2023-01-12 02:56:00 Ricky [facility] EXTRA TUBE ORANGE 2023-01-12 02:56:00 Artur [facility] EXTRA TUBE LAV 2023-01-12 02:56:00 Artur [facility] LIPASE 2023-01-12 02:56:00 Ricky [facility] TOTAL BETA HCG ASSAY 2023-01-12 02:56:00 Ciera García [facility] CBC WITH DIFF 2023-01-12 02:56:00 Ricky [facility] URINALYSIS 2023-01-12 02:56:00 Ricky [facility] EXTRA TUBE LAV 2023-01-12 02:56:00 Artur [facility] EXTRA TUBE ORANGE 2023-01-12 02:56:00 Artur [facility] CONSENT/REFUSAL FOR 2023-01-12 01:46:10 Doctor Unassigned, No [facility] [place] [facility] Name [facility] Branch CONSENT/REFUSAL FOR 2023-01-12 01:46:10 Doctor Unassigned, No [facility] [place] [facility] Name Medical Branch ASSIGNMENT OF BENEFITS 2022-11-21 19:49:02 Doctor Unassigned, No [facility] ASSIGNMENT OF BENEFITS 2022-11-21 19:49:02 Doctor Unassigned, No [facility] Branch CONSENT/REFUSAL FOR 2022-11-21 18:03:25 Doctor Unassigned, No [facility] [place] [facility] Name Medical Branch CONSENT/REFUSAL FOR 2022-11-21 18:03:25 Doctor Unassigned, No [facility] [place] [facility] Name Medical [place] EMERGENCY SERVICES 2022-11-21 05:01:00 Doctor Unassigned, No Uni versity [facility] AGREEMENTS AND Name Medical Branch AUTHORIZATIONS CONSENT/REFUSAL FOR 2022-09-05 13:42:02 Doctor Unassigned, No [facility] [place] [facility] Name Medical Branch LIPASE 2022-07-31 23:13:00 Manju Newell [facility] TEST, SERUM 2022-07-31 23:13:00 Manju Newell [facility] COMP. METABOLIC PANEL 2022-07-31 23:13:00 Manju Newell Un [facility] ([id number]) [facility] CBC WITH DIFF 2022-07-31 23:13:00 Manju Newell [facility] CONSENT/REFUSAL FOR 2022-07-31 22:49:17 Doctor Unassigned, No Un [facility] DIAGNOSIS AND TREATMENT Name Medical [place] XR ANKLE 3+ VW RIGHT 2022-07-15 16:00:00 Cari [facility] XR FOOT 3+ VW RIGHT 2022-07-15 16:00:00 [facility] XR FOOT 3+ VW RIGHT 2022-07-15 16:00:00 [facility] PATIENT FINANCIAL 2022-07-15 15:25:53 Doctor Unassigned, No [facility] POLICY [facility] POCT MOLECULAR STREP 2022-06-23 16:06:00 [facility], [facility] ASSIGNMENT OF BENEFITS 2022-06-23 15:18:28 Doctor Unassigned, No [facility] COMP. METABOLIC PANEL 2022-05-05 19:14:00 Karon Norton [facility] ([id number]) [facility] CBC WITH DIFF 2022-05-05 19:14:00 Karon Norton [facility] POCT TEST 2022-05-05 19:00:00 Karon Norton [facility] URINALYSIS 2022-05-05 18:58:00 Karon Norton [facility] CT ABDOMEN PELVIS WO 2022-04-26 15:11:00 Zion Bridges [facility] CONTRAST [facility] COMP. METABOLIC PANEL 2022-04-26 14:49:00 Zion Bridges [facility] ([id number]) [facility] CBC WITH DIFF 2022-04-26 14:49:00 Singer [facility] URINALYSIS 2022-04-26 14:49:00 Singer [facility] POCT TEST 2022-04-26 14:45:00 Zion Bridges [facility] CONSENT/REFUSAL FOR 2022-04-26 14:22:29 Doctor Unassigned, No [facility] [place] [facility] Name Medical Branch POCT TEST 2022-04-26 01:22:00 Zion Bridges [facility] ASSIGNMENT OF BENEFITS 2022-04-26 00:54:02 Doctor Unassigned, No [facility] URINALYSIS 2022-04-26 00:45:00 Singer [facility] o f [facility] CONSENT/REFUSAL FOR 2022-04-26 00:16:47 Doctor Unassigned, No [facility] [place] [facility] Name [facility] [place] BASIC METABOLIC PANEL 2022-04-07 22:35:00 Olamide Garvin [facility] (NA, K, CL, CO2, GLUCOSE, Medica l Branch BUN, CREATININE, CA) CBC WITH DIFF 2022-04-07 22:35:00 Olamide Garvin [facility] URINALYSIS 2022-04-07 21:36:00 Olamide Garvin [facility] URINE DRUG (IMMUNOASSAY) 2022-04-07 21:36:00 Olamide Garvin [facility] [place] - RUST DRUG Medical Bra nch SCREEN W/O REFLEX CONSENT/REFUSAL FOR 2022-04-07 19:29:15 Doctor Unassigned, No [facility] [place] [facility] Name [facility] [place] POCT TEST 2022-03-24 14:07:00 [facility]ENT[facility]REFUSAL FOR 2022-03-24 13:27:20 Doctor Unassigned, No [facility] [place] [facility] Medical [place] CT ABDOMEN PELVIS WO 2022-03-15 14:09:04 Anna Gould [facility] CONTRAST [facility] URINALYSIS 2022-03-15 13:53:[facility] 2022-03-15 13:52:00 Anna Gould [facility] CONSENT/REFUSAL FOR 2022-03-15 13:37:02 Doctor Unassigned, No [facility] [place] [facility] Name Medical Branch POCT TEST 2022-03-11 14:59:00 Angelica V[facility] FLU VACC ([id number]), 6 2022-02-27 13:34:55 Vijay Martinez [facility] MO-64 YRS, .5ML, IM, QUAD Medica l Branch (FLUCELVAX) NOTICE OF PRIVACY 2022-02-21 06:06:30 Doctor Unassigned, No [facility] PRACTICES Name Medical Branch CONSENT/REFUSAL FOR 2022-02-21 06:03:41 Doctor Unassigned, No [facility] DIAGNOSIS AND TREATMENT Name [facility] [place] XR ANKLE <3 VW RIGHT 2022 17:56:42 Maggie [facility] CT ABDOMEN PELVIS W 2022 17:44:17 Maggie Hamilton [facility] CT TRAUMA CERVICAL SPINE 2022 17:43:49 Maggie Hamilton [facility] CONTRAST [facility] POCT TEST 2022 17:27:00 Magige Hamilton [facility] COMP. METABOLIC PANEL 2022 17:17:00 Maggie Hamilton [facility] ([id number]) [facility] CBC WITH DIFF 2022 17:17:00 Maggie Hamilton [facility] CONSENT/REFUSAL FOR 2022 16:53:13 Doctor Unassigned, No [facility] DIAGNOSIS AND TREATMENT Name Medical [place] US GALL BLADDER 2022-01-18 12:31:09 Bernardo Levy Berk[facility] o f [facility] US PELVIS COMPLETE WITH 2022-01-18 12:21:13 Melvin Zhao [facility] TRANSVAGINAL [facility] Branch CT ABDOMEN PELVIS W 2022-01-18 11:20:50 Melvin Zhao [facility] CONTRAST [facility] Branch POCT TEST 2022-01-18 10:57:00 Jayy [facility] COVID-19 (ID NOW RAPID 2022-01-18 10:57:00 Jayy Kennedy [facility] TESTING) Medical Branch URINALYSIS 2022-01-18 10:47:00 Brent [facility] LIPASE 2022-01-18 10:29:00 Brent [facility] Torrie [facility] TEST, SERUM 2022-01-18 10:29:00 Kennedy [facility] HEPATIC FUNCTION PANEL 2022-01-18 10:29:00 Brent Jayy Torrie [facility] ([id number]) (ALB,T.PRO,BILI Medical Branch T,BU/BC,ALT,AST,ALK PHOS) BASIC METABOLIC PANEL 2022-01-18 10:29:00 [facility] (NA, K, CL, CO2, GLUCOSE, Medica l Branch BUN, CREATININE, CA) CBC WITH DIFF 2022-01-18 10:29:00 [place] [facility] CONSENT/REFUSAL FOR 2022-01-18 10:13:31 Doctor [facility]igned, [facility] Name [facility] CT HEAD WO CONTRAST 2022-01-15 15:22:29 Danita [facility] TEST, SERUM 2022-01-15 14:36:[address] [facility] [facility] BASIC METABOLIC PANEL 2022-01-15 14:36:00 Danita [facility] (NA, K, CL, CO2, GLUCOSE, Medica l Branch BUN, CREATININE, CA) CBC WITH DIFF 2022-01-15 14:36:00 Danita [facility] CONSENT/REFUSAL FOR 2022-01-15 13:28:12 Doctor [facility] XR CERVICAL SPINE 4 VW 2022-01-09 00:29:16 Gabriela [facility] XR LUMBAR SPINE 4 VW 2022-01-09 00:29:16 Gabriela [facility] XR SPINE THORACIC 3 VW 2022-01-09 00:29:16 Gabriela [facility] URINALYSIS 2022-01-08 23:50:00 Gabriela [facility] CONSENT/REFUSAL FOR 2022-01-08 22:51:08 Doctor Unassigned, No Un [facility] DIAGNOSIS AND TREATMENT Name Medical Branch GALV ONLY - VAGINAL 2021-12-12 18:37:00 Prasanna Vargas [facility] PATHOGENS BY NUCLEIC ACID Medica l Branch TESTING URINE CULTURE 2021-12-12 18:32:00 Prasanna Vargas [facility] o [facility] POCT TEST 2021-12-12 18:31:00 Prasanna [facility] POCT URINALYSIS W/O 2021-12-12 18:31:00 Prasanna Vargas [facility] SPECIFIC GRAVITY Medical Branch Encounters Start End Encounter Admission Attending Care Care Encounter Source Date/Time Date/Time Type Type Clinicians Facility Department ID 2021-03-14 Emergency [facility] [id number] Univers 03:14:31 ity of [facility] 2021-03-13 Emergency [facility] [id number] Univers 20:05:20 ity of [facility] 2021-03-13 Emergency [facility] [id number] Univers 12:48:28 ity of [facility] 2021-03-13 Emergency [facility] [id number] Univers 02:43:51 ity of [facility] 2021-03-13 Emergency [facility] [id number] Univers 00:27:09 ity of [facility] 2021-03-12 Emergency [facility] [id number] Univers 22:10:36 ity of [facility] 2021-03-12 Emergency [facility] [id number] Univers 20:04:05 ity of [facility] 2021-03-12 Emergency [facility] [id number] Univers 15:25:05 ity of [facility] 2021-03-12 Emergency [facility] [id number] Univers 11:43:36 ity of [facility] 2021-03-12 Emergency [facility] [id number] Univers 07:41:37 ity of [facility] 2021-03-12 Emergency [facility] [id number] Univers 05:43:47 ity of [facility] 2021-03-12 Emergency [facility] [id number] Univers 03:43:41 ity of [facility] 2021-03-12 Emergency [facility] [id number] Univers 01:31:27 ity of [facility] 2021-03-12 Emergency X [facility] ERT [id number] Univers 00:56:44 ity of [facility] 2021-03-12 Emergency [facility] [id number] Univers 00:56:31 ity of [facility] 2021-03-11 Emergency [facility] [id number] Univers 17:47:02 ity of [facility] 2021-03-11 Emergency [facility] [id number] Univers 16:27:15 ity of [facility] 2021-03-11 Emergency [facility] [id number] Univers 12:00:58 ity of [facility] 2021-03-11 Emergency [facility] [id number] Univers 10:33:59 ity of [facility] 2021-03-11 Emergency [facility] [id number] Univers 01:36:52 ity of [facility] 2021-03-10 Emergency [facility] [id number] Univers 23:35:34 ity of [facility] 2021-03-10 Emergency [facility] [id number] Univers 19:06:16 ity of [facility] 2021-03-10 Emergency [facility] [id number] Univers 12:39:47 ity of [facility] 2021-03-10 Emergency [facility] [id number] Univers 06:54:04 ity of [facility] 2021-03-09 Outpatient P [facility] [id number] Univers 13:25:44 ity of [facility] 2021-03-09 Outpatient P [facility] [id number] Univers 13:08:01 ity of [facility] 2021-03-09 Outpatient P [facility] [id number] Univers 12:37:25 ity of [facility] 2021-03-09 Outpatient P [facility] [id number] Univers 11:51:20 ity of [facility] 2023-02-14 2023-02-14 Outpatient SFA SFA [id number] [place] 12:59:23 12:59:23 Abdullahi5 Jeffery 2023-02-06 2023-02-06 Outpatient SFA SFA [id number] [place] 18:19:02 18:19:02 0927 F Jeffery 2023-01-30 2023-01-30 Outpatient ERICKSON_R [facility] [id number] [place] 00:00:00 00:00:00 920 Commun i ty Hosp[facility] 2023-01-16 2023-01-16 Transition HILARIO Odell 1.2.840.114 [id number] Univers 00:00:00 00:00:00 of Care Marlys DIMASY 350.1.13.10 ity of [place].[address] [place] [id number] [facility] 403 Branch 2023-01-11 2023-01-15 Inpatient X PERSON, [facility] [id number] Univers 21:06:00 16:00:00 [facility] 2023-01-11 2023-01-15 Hospital Aroldo Siddiqui 1.2.840.11 [id number] Univers 21:06:00 16:00:00 Encounter Mirella Vergara 350.1.13.10 [facility] 4.2.7.2.[address] [place] [id number] [facility] 091 Branch 2023-01-12 2023-01-12 Travel 1.2.840.1 1.2.591.288 [id number] Univers 00:00:00 00:00:00 14418.1.1 350.1.13.10 ity of 3.104.2.7 [place].698 [place] .3.110[place] 084.8 Medica l .8 Branch 2023-01-11 2023-01-11 Travel 1.2.840.1 1.2.259.391 [id number] Univers 00:00:00 00:00:00 80656.1.1 350.1.13.10 ity of 3.104.2.7 [place].698 [place] .3.282781 084.8 Medica l .8 Branch 2022-12-28 2022-12-28 Outpatient ERICKSON_R [facility] [id number] [place] 00:00:00 00:00:00 818 Commun i ty Hospita [facility] 2022-12-14 2022-12-14 Outpatient [facility] [id number] [place] 18:37:13 18:37:13 0804 F Jeffery 2022-12-13 2022-12-13 Outpatient ERICKSON_R [facility] [id number] [place] 00:00:00 00:00:00 803 Commun i ty Hospita [facility] 2022-12-12 2022-12-12 Outpatient R PRASANNA VARGAS [facility] [id number] Univers 09:30:00 09:30:00 ity [facility] 2022-11-21 2022-11-21 Emergency X OSIRIS [facility] ERT [id number] Univers 13:08:00 16:45:00 MANJU it y [facility] 2022-11-21 2022-11-21 Emergency [facility] 1.2.840.9 [id number] Univers 13:08:00 16:45:00 Manju Newell 38636.1.1 ity of 3.104.2.7 [place] .3.830134 Medica l .8 [place] 2022-11-21 2022-11-21 Travel 1.2.840.1 1.2.472.065 [id number] Univers 00:00:00 00:00:00 70150.1.1 350.1.13.10 ity of 3.104.2.7 [place].3.698 [place] .3.419075 084.8 Medica l .8 [place] 2022-11-18 2022-11-18 Outpatient [facility] [id number] [place] 10:08:00 10:08:00 0709 F Jeffery 2022-11-15 2022-11-15 Outpatient R LIAN GREENE [facility] [id number] Univers 09:40:00 09:40:00 LIAN GREENE chino [facility] 2022-11-15 2022-11-15 Orders Niru, 1.2.840.7 [id number] Univers 00:00:00 00:00:00 Only Palak 46671.1.1 ity of 3.104.2.7 [place] .3.815058 Medica l .8 [place] 2022-11-09 2022-11-09 Outpatient SFA [facility] [id number] [place] 15:26:18 15:26:18 0630 F Jeffery 2022-11-06 2022-11-06 Outpatient R JUAN [facility] [id number] Univers 13:00:00 13:00:00 VIJAY ity of [facility] 2022-10-29 2022-10-29 Patient Jc, 1.2.840.6 [id number] Univers 00:00:00 00:00:00 Secure Msg Lian 50190.1.1 ity of 3.104.2.7 [place] .3.949219 Medica l .8 [place] 2022-10-29 2022-10-29 Patient Prasanna Vargas 1.2.840.3 [id number] Univers 00:00:00 00:00:00 Secure Msg Cam 58387.1.1 i ty of 3.104.2.7 [place] .3.930342 Medica l .8 [place] 2022-10-03 2022-10-03 Letter Gurjit Lim [facility] 1.2.840.114 [id number] Univers 00:00:00 00:00:00 (Out) [facility] 350.1.13.10 it y of [place] 4.2.7.2.686 [place] TOÑO?BLEA [id number] Ca whit [facility] [address] [place] MEDICAL OFFICE BUILDING 2022-10-02 2022-10-02 Outpatient R SHARMIN [facility] [id number] Univers 10:00:00 10:00:00 , CELINA it y of [facility] 2022-10-01 2022-10-01 Outpatient R ARJUN [facility] [id number] Univers 09:40:00 09:40:00 REJI lechuga o f [facility] 2022-09-25 2022-09-25 Telephone [facility] 1..070.964 [id number] Univers 00:00:00 00:00:00 Sendnh [facility] [place] 350.1.13.10 ity of [place].2.7.2.[place] PROF[place] [id number] Ca dicaliyah TORRES 059 [facility] 2022-09-21 2022-09-21 Outpatient R LEXY [facility] [id number] Univers 09:30:00 09:30:00 [facility]ANDRA [facility] 2022-09-21 2022-09-21 Letter [facility] 1.2.840.114 [id number] Univers 00:00:00 00:00:00 (Out) [facility] 350.1.13.10 it y of [place] 4.2.7.2.686 [place] TOÑO?BLEA [id number] Ca dicaliyah [place] [address] [place] [address] 2022-09-21 2022-09-21 Telephone [facility] 1.2.426.088 [id number] Univers 00:00:00 00:00:00 [facility] 350.1.13.10 it y of [place] 4.2.7.2.686 [place] TOÑO?BLEA [id number] Ca dicaliyah [place] [address] [place] [address] 2022-09-21 2022-09-21 Telephone [facility] 1.2.447.662 [id number] Univers 00:00:00 00:00:00 [facility] 350.1.13.10 it y of [place] 4.2.7.2.686 [place] TOÑO?BLEA [id number] Ca dicaliyah [place] [address] [place] [address] 2022-09-14 2022-09-14 Outpatient R LEXY [facility] [id number] Univers 09:30:00 09:30:00 [facility] 2022-09-12 2022-09-12 Telephone [facility] 1.2.549.005 [id number] Univers 00:00:00 00:00:00 [facility] 350.1.13.10 it y of [place] 4.2.7.2.686 [place] TOÑO?BLEA [id number] Ca dical MIKI [address] [place] [address] 2022-09-07 2022-09-07 Outpatient R LEXY [facility] [id number] Univers 11:30:00 11:30:00 KASSANDRA ity [facility] 2022-09-05 2022-09-05 Emergency X GUTIERREZ [facility] ERT [id number] Univers 08:44:00 13:15:00 CYNISE itchino [facility] 2022-09-05 2022-09-05 Emergency [facility] 1.2.435.142 [id number] Univers 08:44:00 13:15:00 Cynise [place] 350.1.13.10 i ty [facility] 4.2.7.2.686 [place] [id number] [address] 2022-09-04 2022-09-04 Telephone [facility] 1.2.822.424 [id number] Univers 00:00:00 00:00:00 Kassandra HEALTH 350.1.13.10 it y of [place] 4.2.7.2.686 [place] TOÑO?BLEA [id number] [address] MEDICAL OFFICE [facility] 2022-09-04 2022-09-04 Patient Serra, [facility] 1.2.840.114 [id number] Univers 00:00:00 00:00:00 Secure Msg Rad LAWSON 350.1.13.10 ity of [place].2.7.2.686 [place] [facility] [id number] Ca dical NAL 059 [facility] 2022-08-29 2022-08-29 Outpatient R SHARMIN [facility] [id number] Univers 09:00:00 09:00:00 , CELINA it y of [facility] 2022-08-14 2022-08-14 Patient Doctor [facility] 1.2.840.114 [id number] Univers 00:00:00 00:00:00 Secure Msg Unassigned, HEALTH 350.1.13.10 ity of [place] 4.2.7.2.686 [place] TOÑO?BLEA [id number] Ca dic[address] MEDICAL OFFICE [facility] 2022-07-31 2022-07-31 Emergency X RIDRAFA, [facility] ERT [id number] Univers 17:56:00 20:30:00 CHRISTOPHER it y of [facility] 2022-07-31 2022-07-31 [facility] 1.2.475.912 [id number] Univers 17:56:00 20:30:00 Christadrianaer L[place] 350.1.13.10 ity [facility] 4.2.7.2.686 [place] [id number] [facility] 084 Branch 2022-07-15 2022-07-15 Outpatient R [facility] [id number] Univers 09:46:45 23:59:00 CARI ity o f [facility] 2022-07-15 2022-07-15 [facility] 1.2.840.114 [id number] Univers 09:46:45 23:59:00 Encounter Cari Farmer [facility] 350.1.13.10 it[facility] 4.2.7.2.686 [place] TOÑO?BLEA [id number] [facility] [address] [place] MEDICAL OFFICE [facility] 2022-07-15 2022-07-15 [facility] 1.2.840.114 [id number] Univers 09:46:45 23:59:00 Encounter Cari [facility] 350.1.13.10 ity of [place] 4.2.7.2.686 [place] TOÑO?BLEA [id number] [facility] 808 [facility] OFFICE [facility] 2022-07-15 2022-07-15 Urgent NatashaCari draper [facility] 1.2.840 .114 [id number] Univers 09:20:00 10:29:17 Care Unknown, Attending HEALTH 350.1.13.10 ity of [place] 4.2.7.2.686 [place] TOÑO?BLEA [id number] [facility] [address] [place] MEDICAL OFFICE BUILDING 2022-07-15 2022-07-15 Orders Doctor JORDAN 1.2.840.114 [id number] Univers 00:00:00 00:00:00 Only Unassigned, YAZMIN 350.1.13.10 ity of [place] [facility] 4.2.7.2.686 [place] as [id number] [address] 2022-06-23 2022-06-23 Outpatient R DANITA [facility] [id number] Univers 09:20:00 10:27:39 PAUL chino [facility] 2022-06-23 2022-06-23 Urgent Paul Samayoa [facility] 1.2.840. 114 [id number] Univers 09:20:00 10:27:39 Care Unknown, Attending HEALTH 350.1.13.10 ity of [place] 4.2.7.2.686 [place] TOÑO?BLEA [id number] [facility] [address] MEDICAL OFFICE BUILDING 2022-06-23 2022-06-23 Orders Doctor JORDAN 1.2.840.114 [id number] Univers 00:00:00 00:00:00 Only Unassigned, YAZMIN 350.1.13.10 ity of [place] [facility] 4.2.7.2.686 [place] as [id number] [address] 2022-06-15 2022-06-15 Out[facility] [id number] Univers 09:40:00 09:40:00 LIAN [facility] 2022-05-29 2022-05-29 Out[facility] [id number] Univers 08:00:00 08:00:00 KASSANDRA [facility] 2022-05-15 2022-05-15 Outpatient R [facility] [id number] Univers 09:20:00 09:20:00 BENNETT [facility] 2022-05-11 2022-05-11 Outpatient [facility] [id number] Univers 09:30:00 09:30:00 KASSANDRA [facility] 2022-05-05 2022-05-05 Emergency X ERROL, [facility] ERT [id number] Univers 12:26:00 16:11:00 KARON [facility] 2022-05-05 2022-05-05 [facility] 1.2.840.114 [id number] Univers 12:26:00 16:11:00 Karon LAWSON 350.1.13.10 i ty of [place] 4.2.7.2.686 [facility] [id number] [address] 2022-05-01 2022-05-01 Outpatient R PRASANNA VARGAS [facility] [id number] Univers 00:00:00 00:00:00 ankush [facility] 2022-04-26 2022-04-26 Emergency X BRIDGES [facility] ERT [id number] Univers 08:30:00 09:59:00 ZION lechuga [facility] 2022-04-26 2022-04-26 Emergency [facility] 1.2.595.353 [id number] Univers 08:30:00 09:59:00 Zion LAWSON 350.1.13.10 i ty [facility] 4.2.7.2.686 [facility] [id number] [address] 2022-04-25 2022-04-25 Emergency X GUTIERREZ, [facility] ERT [id number] Univers 18:23:00 21:55:00 CYNISE chino [facility] 2022-04-25 2022-04-25 Emergency [facility] 1.2.000.413 [id number] Univers 18:23:00 21:55:00 Kennedy LAWSON 350.1.13.10 i ty of [facility] 4.2.7.2.686 [facility] [id number] [address] 2022-04-19 2022-04-19 Outpatient Farzana GREENE [facility] [id number] Univers 10:00:00 10:00:00 LIAN ankush [facility] 2022-04-12 2022-04-12 Telephone [facility] 1.2.596.033 [id number] Univers 00:00:00 00:00:00 [facility] 350.1.13.10 it y of [place] 4.2.7.2.686 [place] TOÑO?BLEA [id number] Ca alessandra[address] MEDICAL OFFICE BUILDING 2022-04-11 2022-04-11 Telephone Patti [facility] 1.2.840.114 [id number] Univers 00:00:00 00:00:00 [facility] 350.1.13.10 ity of [place] 4.2.7.2.686 [place] TOÑO?BLEA [id number] Ca whit [address] MEDICAL OFFICE [facility] 2022-04-10 2022-04-10 Telephone [facility] 1.2.851.784 [id number] Univers 00:00:00 00:00:00 KassandraKlickEx 350.1.13.10 it y of [place] 4.2.7.2.686 [place] TOÑO?BLEA [id number] Ca whit [address] OFFICE [facility] 2022-04-09 2022-04-09 Office [facility] 1.2.840.114 [id number] Univers 09:30:00 09:30:[address] [facility] 350.1.13.10 it y [facility] 4.2.7.2.686 Amrtin as TOÑO?BLEA [id number] [address] OFFICE [facility] 2022-04-09 2022-04-09 Outpatient [facility] [id number] Univers 09:30:00 09:21:44 KASSANDRA ity [facility] 2022-04-07 2022-04-07 Emergency X [facility] ERT [id number] Univers 13:41:00 17:49:00 OLAMIDE lechuga [facility] 2022-04-07 2022-04-07 Emergency [facility] 1.2.633.601 [id number] Univers 13:41:00 17:49:00 Olamide LAW[place] 350.1.13.10 ity of [place] 4.2.7.2.686 [place] [id number] [facility] [address] [place] 2022-04-07 2022-04-07 Patient Doctor JORDAN 1.2.840.114 [id number] Univers 00:00:00 00:00:00 Secure Msg Unassigned, YAZMIN 350.1.13.10 ity of [place] [facility] 4.2.7.2.[id number] [facility] [address] [place] 2022-04-04 2022-04-04 Telephone [facility] 1.2.110.739 [id number] Univers 00:00:00 00:00:00 Kassandra HEALTH 350.1.13.10 it y of [place] 4.2.7.2.686 [place] TOÑO?BLEA [id number] Ca whit [address] 2022-04-02 2022-04-02 Outpatient Farzana PUGH [facility] [id number] Univers 10:30:00 10:30:00 KASSANDRA itchino [facility] 2022-03-28 2022-03-28 Patient Doctor [facility] 1.2.840.114 [id number] Univers 00:00:00 00:00:00 Secure Msg [facility], [facility] 350.1.13.10 ity of [place] 4.2.7.2.686 [place] as TOÑO?BLEA [id number] [address] 2022-03-24 2022-03-24 Emergency X PERLA, [facility] ERT [id number] Univers 07:35:00 13:11:00 KELLIE lechuga [facility] 2022-03-24 2022-03-24 Emergency [facility] 1.2.946.197 [id number] Univers 07:35:00 13:11:00 Kellie LAWSON 350.1.13.10 ity of [place] 4.2.7.2.686 [place] [facility] [id number] [address] 2022-03-23 2022-03-23 Outpatient Farzana PUGH [facility] [id number] Univers 10:30:00 10:30:00 KASSANDRA lechuga [facility] 2022-03-23 2022-03-23 Telephone [facility] 1.2.840.114 [id number] Univers 00:00:00 00:00:00 [facility] 350.1.13.10 ity of [place] 4.2.7.2.686 [place] TOÑO?BLEA [id number] [address] 2022-03-22 2022-03-22 Telephone Patti [facility] 1.2.840.114 [id number] Univers 00:00:00 00:00:00 [facility] 350.1.13.10 ity [facility] 4.2.7.2.686 [place] TOÑO?BLEA [id number] [address] 2022-03-22 2022-03-22 Refill [facility] 1.2.840.114 [id number] Univers 00:00:00 00:00:00 [facility] 350.1.13.10 ity [facility] 4.2.7.2.686 [place] as TOÑO?BLEA [id number] [address] 2022-03-21 2022-03-21 [facility] 1.2.840.114 [id number] Univers 00:00:00 00:00:00 [facility] 350.1.13.10 ity of [place] 4.2.7.2.686 [place] as TOÑO?BLEA [id number] [address] 2022-03-15 2022-03-15 Outpatient R ARJUN [facility] [id number] Univers 14:00:00 14:36:19 BINTAWNYON LICENSE OF [facility] ity o f [facility] 2022-03-15 2022-03-15 Office [facility] 1.2.840.114 [id number] Univers 14:00:00 14:36:19 [facility] 350.1.13.10 ity of [place].2.7.2.686 [place] [facility] [id number] [facility] 059 [facility] 2022-03-15 2022-03-15 Emergency X ARTBART[facility]ITALFRANDYPRES[facility] ERT [id number] Univers 08:40:00 10:47:00 ANNA ity [facility] 2022-03-15 2022-03-15 Emergency [facility] 1.2.840.114 [id number] Univers 08:40:00 10:47:00 Anna [place] 350.1.13.10 i ty [facility] 4.2.7.2.[place] [id number] [address] 2022-03-14 2022-03-14 Outpatient R ALICIA PRASANNA [facility] [id number] Univers 10:30:00 10:30:00 ity [facility] 2022-03-11 2022-03-11 Emergency X FELICE [facility] ERT [id number] Univers 09:22:00 12:15:00 SHINTA ity [facility] 2022-03-11 2022-03-11 Emergency [facility] 1.2.840.114 [id number] Univers 09:22:00 12:15:00 Shinta [place] 350.1.13.10 i ty [place]7.2.686 [place] [facility] [phone] [address] 2022-03-06 2022-03-06 Outpatient Farzana LEXY [facility] [id number] Univers 08:30:00 08:30:00 KASSANDRA [facility] 2022-03-02 2022-03-02 Telephone Patti [facility] 1..840.114 [id number] Univers 00:00:00 00:00:00 [employer] 350.1.13.10 ity of [place] 4.2.7.2.686 [place] as TOÑO?BLEA [id number] [address] MEDICAL OFFICE [facility] 2022-02-28 2022-02-28 Patient Doctor [facility] 1..840.114 [id number] Univers 00:00:00 00:00:00 Secure Msg Unassigned, [facility] 350.1.13.10 ity of [place] 4.2.7.2.686 [place] as TOÑO?BLEA [id number] [address] MEDICAL OFFICE [facility] 2022-02-27 2022-02-27 Outpatient R LEXY [facility] [id number] Univers 09:30:00 09:49:42 KASSANDRA chino [facility] 2022-02-27 2022-02-27 Office [facility] 1..840.114 [id number] Univers 09:30:00 09:49:42 Visit [employer] 350.1.13.10 it y of [place] 4.2.7.2.686 [place] as TOÑO?BLEA [phone] Ca whit [place] [address] MEDICAL OFFICE [facility] 2022-02-27 2022-02-27 Office Juan [facility] 1.2.840.114 [id number] Univers 08:00:00 09:12:17 Visit Vijay PETTY 350.1.13.10 it y of [place] 4.2.7.2.686 [place] as TOÑO?BLEA [id number] [facility] [address] [facility] OFFICE [facility] 2022-02-26 2022-02-26 Outpatient R LEXY [facility] [id number] Univers 11:30:00 11:30:00 KASSANDRA ankush [facility] [facility] 2022-02-21 2022-02-21 Emergency [facility] ERT [id number] Univers 01:20:00 03:44:00 MAGGIE lechuga [facility] 2022-02-21 2022-02-21 Emergency [facility] 1.2.840.114 [id number] Univers 01:20:00 03:44:00 Maggie [facility] 350.1.13.10 ity of [place].2.7.2.686 [place] [phone] [address] 2022-02-19 2022-02-19 Patient [facility] 1.2.840.114 [id number] Univers 00:00:00 00:00:00 Secure Msg Kendal Amaral [facility] 350.1.13.10 ity of [place] 4.2.7.2.686 Martin as TOÑO?BLEA [phone] Ca whit [place] [address] [place] [address] MEDICAL OFFICE [facility] 2022-02-19 2022-02-19 Patient [facility] 1.2.840.114 [id number] Univers 00:00:00 00:00:00 Secure Msg Kendal Amaral HEALTH 350.1.13.10 ity of [place] 4.2.7.2.686 [place] TOÑO?BLEA [phone] Ca whit [place] [address] [place] [address] MEDICAL OFFICE [facility] 2022-02-19 2022-02-19 Patient Suzette [facility] 1.2.681.053 [id number] Univers 00:00:00 00:00:00 Secure Msg Ade WATERSY 350.1.13.10 ity of [facility] 4.2.7.2.[phone] [facility] [address] 2022-02-19 2022-02-19 Patient Martin [facility] 1.2.840.114 [id number] Univers 00:00:00 00:00:00 Secure Msg Ross R [employer]IN[employer] WORK[employer] 350.1.13.10 ity of [facility] 4.2.7.2.686 [place] as MATERNAL [phone] Med ical & CHILD [address] [place] [address] 2022 2022 Emergency X [facility] ERT [id number] Univers 11:58:00 15:13:00 MAGGIE lechuga [facility] 2022 2022 Emergency [facility] 1.2.840.114 [id number] Univers 11:58:00 15:13:00 Maggie LAWSON 350.1.13.10 ity [facility] 4.2.7.2.[address] [place] [facility] [phone] [facility] [address] 2022-02-09 2022-02-09 Outpatient R BRANDON, [facility] [id number] Univers 09:00:00 09:00:00 CRICKET davis [facility] 2022-02-06 2022-02-06 Outpatient R JUAN [facility] [id number] Univers 10:00:00 10:00:00 VIJAY lechuga [facility] 2022-02-05 2022-02-05 Nurse Nurse, Filippo [facility] 1.2.840.114 [id number] Univers 09:45:00 10:05:00 Visit [facility] 350.1.13.10 ity [facility] 4.2.7.2.686 [place] as TOÑO?BLEA [phone] Ca whit [address] MEDICAL OFFICE BUILDING 2022-02-05 2022-02-05 Outpatient R OLIVER [facility] [id number] Univers 09:20:00 09:20:00 FLACO davis [facility] 2022-01-26 2022-01-26 Prasanna Gimenez [facility] 1.2.106.324 [id number] Univers 00:00:00 00:00:00 Management Jm LAWSON 350.1.13.10 ity [facility] 4.2.7.2.686 [place] [facility] [phone] Ca dical [address] 2022-01-22 2022-01-22 Outpatient R JUAN [facility] [id number] Univers 11:00:00 11:00:00 VIJAY ity of [facility] 2022-01-19 2022-01-19 Patient Doctor JORDAN 1.2.840.114 [id number] Univers 00:00:00 00:00:00 Secure Msg Unassigned, YAZMIN 350.1.13.10 ity [facility] 4.2.7.2.686 [facility] [phone] [facility] [address] 2022-01-18 2022-01-18 Emergency X GARDENIA [facility] ERT [id number] Univers 05:17:00 10:25:00 [facility] 2022-01-18 2022-01-18 Emergency Jayy Kennedy W TRAUMA 1.2.840.11 [id number] Univers 05:17:00 10:25:00 Bernardo Levy [facility] 350.1.13.10 ity [facility].2.7.2.686 [facility] [phone] [facility] [address] 2022-01-15 2022-01-15 Emergency X DANITA [facility] ERT [id number] Univers 08:34:00 10:49:00 MAUAR lechuga [facility] 2022-01-15 2022-01-15 Emergency Ana Richelleayanna R [facility] 1.2.840.1 14 [id number] Univers 08:34:00 10:49:00 Maura Samayoa 350.1.13.10 ity [facility] 4.2.7.2.686 [facility] [id number] [facility] [address] 2022-01-08 2022-01-08 Emergency X GABRIELA [facility] ERT [id number] Univers 18:04:00 20:09:00 H[facility]BERTO [facility] 2022-01-08 2022-01-08 Emergency Gabriela, [facility] 1.2.840.114 [id number] Univers 18:04:00 20:09:00 Humberto LAWSON 350.1.13.10 i ty of [facility] 4.2.7.2.686 [facility] [phone] [address] 2021-12-12 2021-12-12 Outpatient R DEYVI [facility] [id number] Univers 13:30:00 13:40:21 [facility] 2021-12-12 2021-12-12 Office VargasPrasanna Jm [facility] 1..840.114 [id number] Univers 13:30:00 13:40:21 Visit Teto Carnes 350.1.13.10 ity [facility] 4.2.7.2.686 [facility] [phone] Ca dical [address] 2021-12-12 2021-12-12 Outpatient Farzana CARNES [facility] [id number] Univers 13:30:00 13:40:21 [facility] 2021-12-12 2021-12-12 Outpatient R DEYVI [facility] [id number] Univers 13:30:00 13:40:21 [facility] 2021-12-11 2021-12-11 Outpatient R SUZETTE, [facility] [id number] Univers 16:15:00 16:15:00 ADE [facility] 2021-12-05 2021-12-05 Outpatient R LYSSA, [facility] [id number] Univers 14:15:00 14:15:00 ROMULO [facility] 2021-11-28 2021-11-28 Emergency X ERROL, [facility] ERT [id number] Univers 08:49:00 11:02:00 KARON [facility] 2021-11-28 2021-11-28 Emergency [facility] 1..840.114 [id number] Univers 08:49:00 11:02:00 Karon LAWSON 350.1.13.10 i ty of [place] 4.2.7.2.686 [facility] [phone] [address] 2021-11-28 2021-11-28 Patient Sushmagracie [facility] 1.2.503.106 [id number] Univers 00:00:00 00:00:00 Secure Msg Cricket Lopez [employer] 350.1.13.10 ity of [facility] 4.2.7.2.686 [place] as MATERNAL [phone] [facility] & [address] 2021-11-24 2021-11-24 Emergency X DEV, K [facility] ERT [id number] Univers 18:14:00 21:04:00 ity of [facility] 2021-11-24 2021-11-24 Emergency Dev, [facility] 1.2.840.114 [id number] Univers 18:14:00 21:04:00 Sharlene [place] 350.1.13.10 i ty of [place] 4.2.7.2.686 [facility] [phone] [address] 2021-11-24 2021-11-24 Telephone Addisongracie [facility] 1.2.840.114 [id number] Univers 00:00:00 00:00:00 Cricket Lopez [employer] 350.1.13.10 ity of [facility] 4.2.7.2.686 [place] as MATERNAL [id number] [address] 2021-11-20 2021-11-20 Patient Robb [facility] 1.2.840.114 [id number] Univers 00:00:00 00:00:00 Secure Msg Kendal [facility] 350.1.13.10 ity [facility] 4.2.7.2.686 [place] as TOÑO?BLEA [phone] Ca alessandra[address] MEDICAL OFFICE BUILDING 2021-11-19 2021-11-19 Letter JORDAN Santacruz 1.2.840.114 [id number] Univers 00:00:00 00:00:00 (Out) Leslie ARCE 350.1.13.10 it y of [facility] 4.2.7.2.686 Martin as [phone] [address] 2021-11-18 2021-11-18 [facility] [id number] Univers 10:41:40 23:59:00 FLACO lechuga o f [facility] 2021-11-18 2021-11-18 Hospital [facility] 1.2.880.230 [id number] Univers 10:41:40 23:59:00 Encounter [facility] 350.1.13.10 ity of [place] 4.2.7.2.686 [place] as TOÑO?BLEA [phone] Me dical MIKI [address] MEDICAL OFFICE [facility] 2021-11-18 2021-11-18 Urgent [facility] 1.2.840.114 [id number] Univers 10:20:00 10:53:20 Care [facility] 350.1.13.10 i ty of [place] 4.2.7.2.686 [place] as TOÑO?BLEA [phone] Me whit [place] [address] [facility] OFFICE [facility] 2021-11-09 2021-11-09 Outpatient R [facility] [id number] Univers 10:30:00 10:30:00 CELINA lechuga [facility] 2021-10-25 2021-10-25 Urgent Ileana Medrano [facility] ..840.114 [id number] Univers 13:20:00 13:20:00 Care [facility] 350.1.13.10 ity [facility] 4.2.7.2.686 [place] as TOÑO?BLEA [phone] Ca dicaliyah [place] [address] [facility] OFFICE [facility] 2021-10-25 2021-10-25 Outpatient R [facility] [id number] Univers 13:20:00 12:47:59 ILEANA lechuga [facility] 2021-10-25 2021-10-25 Patient Ví[facility]orkathyPRESBYTERIAN [facility] 1.2.840.114 [id number] Univers 00:00:00 00:00:00 Secure [facility] Xingshuai Teach 350.1.13.10 ity of [place] 4.2.7.2.686 Martin as TOÑO?BLEA [phone] Me dical IVÁNEY [address] MEDICAL OFFICE [facility] 2021-10-25 2021-10-25 Telephone Cotta, [facility] 1.2.277.019 [id number] Univers 00:00:00 00:00:00 Vijay HEALTH 350.1.13.10 it y of [place] 4.2.7.2.686 Martin as TOÑO?BLEA [phone] [facility] [address] [facility] OFFICE [facility] 2021-10-25 2021-10-25 Telephone Provider, [facility] 1.2.840.114 [id number] Univers 00:00:00 00:00:00 Ang Db HEALTH 350.1.13.10 it y of Urgent Care [place] 4.2.7.2.686 [place] TOÑO?BLEA [phone] [facility] [address] MEDICAL OFFICE [facility] 2021-10-25 2021-10-25 Telephone Nurse, Filippo [facility] 1.2.840.114 [id number] Univers 00:00:00 00:00:00 Db Urgent HEALTH 350.1.13.10 ity of Care [place] 4.2.7.2.686 Martin as TOÑO?BLEA [phone] [facility] [address] [facility] OFFICE [facility] 2021-10-24 2021-10-24 Outpatient Farzana OMALLEY [facility] [id number] Univers 10:15:00 10:15:00 ROMULO [facility] 2021-10-24 2021-10-24 Outpatient Farznaa OMALLEY [facility] [id number] Univers 10:15:00 10:15:00 ROMULO [facility] 2021-10-11 2021-10-11 Outpatient Farzana OMALLEY [facility] [id number] Univers 09:30:00 09:30:00 ROMULO [facility] 2021-10-10 2021-10-10 Outpatient PRASANNA LOOMIS [facility] [id number] Univers 13:30:00 13:30:00 ity [facility] 2021-10-10 2021-10-10 Outpatient PRASANNA LOOMIS [facility] [id number] Univers 13:30:00 13:30:00 ity [facility] 2021-10-10 2021-10-10 Outpatient R PRASANNA VARGAS [facility] [id number] Univers 13:30:00 13:30:00 ity of [facility] 2021-10-10 2021-10-10 [facility] [id number] Univers 13:30:00 13:30:00 ity of [facility] 2021-10-10 2021-10-10 Outpatient R PRASANNA VARGAS [facility] [id number] Univers 13:30:00 13:30:00 ity of [facility] 2021-10-10 2021-10-10 Outpatient R ALICIA [facility] [id number] Univers 13:30:00 13:30:00 ity of [facility] 2021-10-10 2021-10-10 Outpatient [facility] [id number] Univers 13:30:00 13:30:00 ity of [facility] 2021-10-05 2021-10-05 Patient Robb [facility] 1.2.840.114 [id number] Univers 00:00:00 00:00:00 Secure Msg Kendal Amaral HEALTH 350.1.13.10 ity of [place] 4.2.7.2.686 [place] as TOÑO?BLEA [id number] [address] OFFICE [facility] 2021-10-05 2021-10-05 Patient Robb [facility] 1.2.840.114 [id number] Univers 00:00:00 00:00:00 Secure g Kendal Amaral HEALTH 350.1.13.10 ity of [place] 4.2.7.2.686 [place] as TOÑO?BLEA [phone] [address] MEDICAL OFFICE [facility] 2021-10-04 2021-10-04 Pre Visit HILARIO Rodriguez 1.2.278.140 [id number] Univers 00:00:00 00:00:00 Outreach Melia TELLO 350.1.13.10 ity of [place]2.7.2.686 [place] [phone] [address] 2021-09-28 2021-09-28 Office Apurva [facility] 1.2.840.114 [id number] Univers 13:30:00 13:45:00 Visit Celina Cannon FLAC[facility].13.10 [facility] 4.2.7.2.686 [place] [phone] [address] 2021-09-28 2021-09-28 Outpatient [facility] [id number] Univers 13:30:00 13:30:00 CELINA [facility] 2021-09-28 2021-09-28 Outpatient R [facility] [id number] Univers 13:30:00 13:30:00 [facility] 2021-09-28 2021-09-28 Patient [facility] 1.2.840.114 [id number] Univers 00:00:00 00:00:00 Secure Msg Celina Cannon FLACO 350.1.13.10 [facility] 4.2.7.2.686 [place] [id number] [address] 2021-09-27 2021-09-27 Outpatient R DEYVI [facility] [id number] Univers 14:00:00 14:00:00 TETO [facility] 2021-09-27 2021-09-27 Outpatient R [facility] [id number] Univers 09:30:00 09:30:00 [facility] 2021-09-27 2021-09-27 Outpatient R ADITI [facility] [id number] Univers 09:30:00 09:30:00 [facility] 2021-09-27 2021-09-27 Outpatient R [facility] [id number] Univers 09:30:00 09:30:00 [facility] 2021-09-26 2021-09-26 Outpatient R AKINLYNSEY, [facility] [id number] Univers 10:45:00 10:45:00 CRICKET ity o f [facility] 2021-09-26 2021-09-26 Outpatient R AKINSIGRACIE [facility] [id number] Univers 10:45:00 10:45:00 CRICKET ity o f [facility] 2021-09-26 2021-09-26 Patient Juan [facility] 1.2.840.114 [id number] Univers 00:00:00 00:00:00 Secure [facility] 350.1.13.10 ity of [place] 4.2.7.2.686 [place] as TOÑO?BLEA [phone] Me dicaliyah [facility] [address] MEDICAL OFFICE [facility] 2021-09-26 2021-09-26 Patient Juan [facility] 1.2.840.114 [id number] Univers 00:00:00 00:00:00 Secure [facility] Vijay HEALTH 350.1.13.10 ity of [place] 4.2.7.2.686 [place] as TOÑO?BLEA [id number] [facility] [address] [facility] OFFICE [facility] 2021-09-25 2021-09-25 Urgent Flaco Boyd [facility] 1.2.840. 114 [id number] Univers 10:20:00 11:10:42 [facility] 350.1.13.10 ity of [facility] 4.2.7.2.686 [place] as TOÑO?BLEA [phone] [facility] [address] [facility] OFFICE [facility] 2021-09-25 2021-09-25 Outpatient R OLIVER [facility] [id number] Univers 10:20:00 11:10:42 FLACO fitzpatrick [facility] 2021-09-25 2021-09-25 Outpatient R OLIVER [facility] [id number] Univers 10:20:00 10:20:00 FLACO lechuga o [facility] 2021-09-25 2021-09-25 Outpatient R PRASANNA VARGAS [facility] [id number] Univers 10:00:00 10:00:00 ity [facility] 2021-09-25 2021-09-25 Telephone [facility] 1.2.840.114 [id number] Univers 00:00:00 00:00:00 [facility] 350.1.13.10 i ty of [place] 4.2.7.2.686 [place] as TOÑO?BLEA [phone] Me dical KNEY [address] MEDICAL OFFICE [facility] 2021-09-25 2021-09-25 Patient Prasanna Vargas [facility] 1.2.388.410 [id number] Univers 00:00:00 00:00:00 Secure Msg Cam [place] 350.1.13.10 ity of [place] 4.2.7.2.686 [place] [phone] Ca dical NAL 134 [facility] 2021-09-25 2021-09-25 Telephone Brandon [facility] 1.2.840.114 [id number] Univers 00:00:00 00:00:00 Cricket C CABIN[employer] WORKER 350.1.13.10 ity of [facility] 4.2.7.2.686 [place] as MATERNAL [phone] Med ical & CHILD 107 [facility] 2021-09-25 2021-09-25 Telephone Apurva [facility] 1.2.291.276 [id number] Univers 00:00:00 00:00:00 Celina SAM 350.1.13.10 ity of [facility] 4.2.7.2.686 [place] [phone] [address] 2021-09-15 2021-09-15 Patient Robb [facility] 1.2.840.114 [id number] Univers 00:00:00 00:00:00 Secure Msg Kendal Munir HEALTH 350.1.13.10 ity of [place] 4.2.7.2.686 [place] as TOÑO?BLEA [phone] Ca dicaliyah [place] [address] MEDICAL OFFICE [facility] 2021-09-15 2021-09-15 Patient Robb [facility] 1.2.840.114 [id number] Univers 00:00:00 00:00:00 Secure Msg Kendal M HEALTH 350.1.13.10 ity of [place] 4.2.7.2.686 [place] as TOÑO?BLEA [phone] Ca dicaliyah [place] [address] [facility] OFFICE [facility] 2021-09-15 2021-09-15 Patient Robb [facility] 1.2.840.114 [id number] Univers 00:00:00 00:00:00 Secure Msg Kendal M HEALTH 350.1.13.10 ity [facility] 4.2.7.2.686 [place] as TOÑO?BLEA [id number] [address] MEDICAL OFFICE [facility] 2021-09-14 2021-09-14 Patient Juan [facility] 1.2.840.114 [id number] Univers 00:00:00 00:00:00 Secure Msg Vijay HEALTH 350.1.13.10 ity of [facility] 4.2.7.2.686 [place] as TOÑO?BLEA [phone] [address] OFFICE [facility] 2021-09-14 2021-09-14 Patient Doctor [facility] 1.2.840.114 [id number] Univers 00:00:00 00:00:00 Secure Msg Unassigned, HEALTH 350.1.13.10 ity of [place] 4.2.7.2.686 [place] as TOÑO?BLEA [phone] [address] OFFICE [facility] 2021-09-12 2021-09-12 Outpatient Farzana MIXON [facility] [id number] Univers 10:30:00 10:30:00 CELINA lechuga [facility] 2021-09-12 2021-09-12 Outpatient Farzana MIXON [facility] [id number] Univers 10:30:00 10:30:00 CELINA lechuga [facility] 2021-09-12 2021-09-12 Patient Meet [facility] 1.2.840.114 [id number] Univers 00:00:00 00:00:00 Secure Msg Daniel CRAIG 350.1.13.10 ity of [place].2.[address] [place] [phone] [facility] AND MOBILE [address] [facility] 2021-09-12 2021-09-12 Orders Doctor JORDAN 1.2.840.114 [id number] Univers 00:00:00 00:00:00 Only Unassigned, YAZMIN 350.1.13.10 ity of [place] [facility] 4.2.7.2.[phone] [facility] [address] 2021-09-12 2021-09-12 Patient Juan [facility] 1.2.840.114 [id number] Univers 00:00:00 00:00:00 Secure Msg Vijay HEALTH 350.1.13.10 ity of [place] 4.2.7.2.686 [place] as TOÑO?BLEA [phone] [address] MEDICAL OFFICE BUILDING 2021-09-05 2021-09-05 Patient Juan [facility] 1.2.840.114 [id number] Univers 00:00:00 00:00:00 Secure Msg Vijay HEALTH 350.1.13.10 ity of [place] 4.2.7.2.686 [place] as TOÑO?BLEA [phone] [address] MEDICAL OFFICE BUILDING 2021-09-05 2021-09-05 Patient Doctor JORDAN 1.2.840.114 [id number] Univers 00:00:00 00:00:00 Secure Msg Unassigned, YAZMIN 350.1.13.10 ity of [place] [facility]PITAL 4.2.7.2.686 [place] as [phone] [address] 2021-09-05 2021-09-05 Patient Doctor JORDAN 1.2.840.114 [id number] Univers 00:00:00 00:00:00 Secure Msg Unassigned, YAZMIN 350.1.13.10 ity of [place] [facility] 4.2.7.2.686 [place] as [phone] [address] 2021-09-04 2021-09-04 Patient Juan [facility] 1.2.840.114 [id number] Univers 00:00:00 00:00:00 Secure Msg Vijay HEALTH 350.1.13.10 ity of [place] 4.2.7.2.686 [place] as OTÑO?BLEA [phone] [address] MEDICAL OFFICE BUILDING 2021-08-28 2021-08-28 Patient Melvin [facility] 1.2.840.114 [id number] Univers 00:00:00 00:00:00 Secure Msg Shancy K MULTISPEC 350.1.13.10 ity of [place].2.686 [place] [id number] [address] DIABETES CLINIC 2021-08-25 2021-08-25 Telephone Aditi [facility] 1.2.840.114 [id number] Univers 00:00:00 00:00:00 Dania L HEALTH 350.1.13.10 it y of [place] 4.2.7.2.686 [place] as TOÑO?BLEA [phone] Me whit [place] [address] MEDICAL OFFICE BUILDING 2021-08-25 2021-08-25 Patient Juan [facility] 1.2.840.114 [id number] Univers 00:00:00 00:00:00 Secure Msg Vijay HEALTH 350.1.13.10 ity of [place] 4.2.7.2.686 [place] as TOÑO?BLEA [phone] Ca whit [place] [address] MEDICAL OFFICE BUILDING 2021-08-24 2021-08-24 Telephone Juan [facility] 1.2.070.438 [id number] Univers 00:00:00 00:00:00 Vijay HEALTH 350.1.13.10 it y of [place] 4.2.7.2.686 [place] as TOÑO?BLEA [phone] Ca whit [place] [address] [place] 2021-08-24 2021-08-24 Patient Juan [facility] 1.2.840.114 [id number] Univers 00:00:00 00:00:00 Secure Msg Vijay HEALTH 350.1.13.10 ity of [place] 4.2.7.2.686 Martin as TOÑO?BLEA [id number] Ca whit [place] [address] [place] [facility] 2021-08-23 2021-08-23 Patient Juan [facility] 1.2.840.114 [id number] Univers 00:00:00 00:00:00 Secure Msg Vijay HEALTH 350.1.13.10 ity of [place] 4.2.7.2.686 Martin as TOÑO?BLEA [id number] Ca whit [place] [address] [place] [facility] 2021-08-23 2021-08-23 Telephone Juan [facility] 1.2.336.833 [id number] Univers 00:00:00 00:00:00 Vijay HEALTH 350.1.13.10 it y of [place] 4.2.7.2.686 Martin as TOÑO?BLEA [phone] Ca dical [place] [address] [facility] OFFICE [facility] 2021-08-22 2021-08-22 Telephone [facility] 1.2.334.840 [id number] Univers 00:00:00 00:00:00 Vijay HEALTH 350.1.13.10 it y of [place] 4.2.7.2.686 Martin as TOÑO?BLEA [phone] Ca dical [place] [address] [facility] OFFICE [facility] 2021-08-22 2021-08-22 [facility] 1.2.840.114 [id number] Univers 00:00:00 00:00:00 Secure Msg Hallie HEALTH 350.1.13.10 ity of [place] 4.2.7.2.686 Martin as TOÑO?BLEA [phone] Ca dical [place] [address] [place] [address] 2021-08-18 2021-08-18 Telephone [facility] 1.2.893.855 [id number] Univers 00:00:00 00:00:00 Vijay HEALTH 350.1.13.10 it y of [place] 4.2.7.2.686 [place] as TOÑO?BLEA [phone] Ca dical [place] [address] [place] [address] 2021-08-17 2021-08-17 Outpatient Farzana MIXON [facility] [id number] Univers 09:00:00 09:00:00 CELINA lechuga [facility] 2021-08-17 2021-08-17 Outpatient Farzana MIXON [facility] [id number] Univers 09:00:00 09:00:00 CELINA ity of [facility] 2021-08-17 2021-08-17 Patient Prasanna Vargas [facility] 1.2.355.810 [id number] Univers 00:00:00 00:00:00 Secure Msg Cam [place] 350.1.13.10 ity [place] [phone] Me dical [place] [address] [facility] 2021-08-17 2021-08-17 [facility] 1.2.840.114 [id number] Univers 00:00:00 00:00:00 Secure Msg Vijay HEALTH 350.1.13.10 ity of [place] 4.2.7.2.686 Martin as TOÑO?BLEA [phone] [address] MEDICAL OFFICE [facility] 2021-08-17 2021-08-17 Patient Juan, [facility] 1.2.840.114 [id number] Univers 00:00:00 00:00:00 Secure Msg Vijay HEALTH 350.1.13.10 ity of [place] 4.2.7.2.686 Martin as TOÑO?BLEA [id number] [address] MEDICAL OFFICE [facility] 2021-08-16 2021-08-16 Patient Juan [facility] 1.2.840.114 [id number] Univers 00:00:00 00:00:00 Secure Msg Vijay HEALTH 350.1.13.10 ity of [place] 4.2.7.2.686 Martin as TOÑO?BLEA [id number] [address] MEDICAL OFFICE [facility] 2021-08-16 2021-08-16 Patient Doctor [facility] 1.2.840.114 [id number] Univers 00:00:00 00:00:00 Secure Msg Unassigned, HEALTH 350.1.13.10 ity of [place] 4.2.7.2.686 Martin as TOÑO?BLEA [id number] [address] MEDICAL OFFICE [facility] 2021-08-16 2021-08-16 Patient Juan [facility] 1.2.840.114 [id number] Univers 00:00:00 00:00:00 Secure Msg Vijay HEALTH 350.1.13.10 ity of [place] 4.2.7.2.686 [place] as TOÑO?BLEA [phone] [address] MEDICAL OFFICE [facility] 2021-08-16 2021-08-16 Patient Juan [facility] 1.2.840.114 [id number] Univers 00:00:00 00:00:00 Secure Msg Vijay HEALTH 350.1.13.10 ity of [place] 4.2.7.2.686 [place] as TOÑO?BLEA [phone] Me whit [place] [address] [facility] OFFICE [facility] 2021-08-15 2021-08-15 Office [facility] 1.2.840.114 [id number] Univers 15:30:00 16:16:42 Visit [facility] 350.1.13.10 it y of [place] 4.2.7.2.686 [place] as TOÑO?BLEA [phone] Me whit [place] [address] [facility] 2021-08-15 2021-08-15 Outpatient [facility] [id number] Univers 15:30:00 16:16:42 [facility] 2021-08-15 2021-08-15 Outpatient [facility]zana [facility] [id number] Univers 15:30:00 15:30:00 [facility] 2021-08-15 2021-08-15 Outpatient [facility]zana [facility] [id number] Univers 15:30:00 15:30:00 [facility] 2021-08-15 2021-08-15 Outpatient Farzana [facility] [id number] Univers 15:30:00 15:30:00 [facility] 2021-08-15 2021-08-15 Emergency Aj [facility] ERT [id number] Univers 09:27:00 12:26:00 [facility] 2021-08-15 2021-08-15 [facility] 1.2.135.319 [id number] Univers 09:27:00 12:26:00 Maura LAWSON 350.1.13.10 ity of [place] 4.2.7.2.686 [place] [facility] [phone] [address] 2021-08-15 2021-08-15 Emergency X [facility]BYTER[facility] ERT [id number] Univers 09:27:00 12:26:00 MAURA [facility] 2021-08-15 2021-08-15 Patient Doctor JORDAN 1.2.840.114 [id number] Univers 00:00:00 00:00:00 Secure Msg Unassigned, YAZMIN 350.1.13.10 ity of [place] [facility] 4.2.7.2.686 Martin as [phone] [address] 2021-08-14 2021-08-14 Outpatient R JUAN [facility] [id number] Univers 13:25:00 23:59:00 VIJAY lechuga [facility] 2021-08-14 2021-08-14 Outpatient R JUAN [facility] [id number] Univers 13:25:00 23:59:00 VIJAY lechuga [facility] 2021-08-14 2021-08-14 Outpatient R JUAN [facility] [id number] Univers 13:25:00 13:25:00 VIJAY lechuga [facility] 2021-08-14 2021-08-14 Outpatient R JUAN [facility] [id number] Univers 12:19:07 13:24:00 VIJAY lechuga [facility] 2021-08-14 2021-08-14 Outpatient R JUAN [facility] [id number] Univers 12:19:07 13:24:00 VIJAY lechuga [facility] 2021-08-14 2021-08-14 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, Ang - Db [facility] 1.2.840.1 14 [id number] Univers 12:30:00 13:01:24 Visit Vijay Martinez 350.1.13.10 ity of [place] 4.2.7.2.686 [place] as TOÑO?BLEA [id number] [address] OFFICE [facility] 2021-08-14 2021-08-14 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, Ang - Db [facility] 1.2.840.1 14 [id number] Univers 12:30:00 12:45:00 Visit Vijay Martinez 350.1.13.10 ity of [place] 4.2.7.2.686 [place] as TOÑO?BLEA [phone] [address] OFFICE BUILDING 2021-08-14 2021-08-14 Office Juan [facility] 1.2.840.114 [id number] Univers 11:30:00 12:31:12 Visit Vijay PETTY 350.1.13.10 it y of [place] 4.2.7.2.686 [place] as TOÑO?BLEA [phone] Ca whit [address] MEDICAL OFFICE [facility] 2021-08-14 2021-08-14 Outpatient R JUAN [facility] [id number] Univers 11:30:00 12:31:12 VIJAY lechuga [facility] 2021-08-14 2021-08-14 Patient [facility] 1.2.840.114 [id number] Univers 00:00:00 00:00:00 Secure Msg Vijay HEALTH 350.1.13.10 [facility] 4.2.7.2.686 [place] as TOÑO?BLEA [id number] Ca whit [address] MEDICAL OFFICE [facility] 2021-08-14 2021-08-14 Patient VíctorkathyPRESBYTERIAN [facility] 1.2.840.114 [id number] Univers 00:00:00 00:00:00 Secure Msg Vijay HEALTH 350.1.13.10 ity of [place] 4.2.7.2.686 [place] as TOÑO?BLEA [phone] Ca alessandra[address] MEDICAL OFFICE [facility] 2021-08-09 2021-08-09 Outpatient R JUDY [facility] [id number] Univers 14:45:00 14:45:00 ADÁN chino [facility] 2021-08-09 2021-08-09 Telephone [facility]PRES[facility] 1.2.163.262 [id number] Univers 00:00:00 00:00:00 Vijay HEALTH 350.1.13.10 it y [facility] 4.2.7.2.686 [place] as TOÑO?BLEA [id number] [address] MEDICAL OFFICE [facility] 2021-08-08 2021-08-08 Outpatient R [facility] [id number] Univers 11:30:00 23:59:00 VIJAY chino [facility] 2021-08-08 2021-08-08 Hospital [facility] 1.2.840.114 [id number] Univers 11:30:00 23:59:00 Encounter Vijay HEALTH 350.1.13.10 ity [facility] 4.2.7.2.686 [place] as TOÑO?BLEA [phone] Ca whit [place] [address] [facility] OFFICE [facility] 2021-08-08 2021-08-08 Outpatient R JUAN [facility] [id number] Univers 11:15:00 11:15:00 VIJAY lechuga [facility] 2021-08-08 2021-08-08 Outpatient R JUAN [facility] [id number] Univers 11:00:00 11:00:00 VIJAY lechuga [facility] 2021-08-08 2021-08-08 Patient Doctor JORDAN 1.2.840.114 [id number] Univers 00:00:00 00:00:00 Secure Msg Unassigned, YAZMIN 350.1.13.10 ity of [facility] 4.2.7.2.686 Martin as [phone] [address] 2021-08-07 2021-08-07 Office [facility] 1.2.840.114 [id number] Univers 09:30:00 10:23:21 Visit Vijay Xingshuai Teach 350.1.13.10 it y of [place] 4.2.7.2.686 [place] as TOÑO?BLEA [phone] Ca whit MARY [address] [place] [address] OFFICE [facility] 2021-08-07 2021-08-07 Outpatient R JUAN [facility] [id number] Univers 09:30:00 10:23:21 VIJAY lechuga [facility] 2021-08-07 2021-08-07 Outpatient R JUAN [facility] [id number] Univers 09:30:00 09:30:00 VIJAY lechuga [facility] 2021-08-07 2021-08-07 Patient [facility] 1.2.840.114 [id number] Univers 00:00:00 00:00:00 Secure Msg Vijay HEALTH 350.1.13.10 ity of [place] 4.2.7.2.686 [place] as TOÑO?BLEA [phone] Ca whit [place] [address] [place] [address] MEDICAL OFFICE [facility] 2021-08-07 2021-08-07 Patient [facility] 1.2.840.114 [id number] Univers 00:00:00 00:00:00 Secure Msg Vijay HEALTH 350.1.13.10 ity of [place] 4.2.7.2.686 [place] as TOÑO?BLEA [id number] Ca whit [address] MEDICAL OFFICE BUILDING 2021-08-07 2021-08-07 Patient Apurva [facility] 1.2.840.114 [id number] Univers 00:00:00 00:00:00 Secure Msg Celina A FLACO 350.1.13.10 ity of [facility] 4.2.7.2.686 [place] [phone] [address] 2021-08-04 2021-08-04 Outpatient R SHADIA [facility] [id number] Univers 10:00:00 10:00:00 PETRA ity [facility] 2021-08-04 2021-08-04 Patient [facility] 1.2.840.114 [id number] Univers 00:00:00 00:00:00 Secure Mslaila Penaloza HEALTH 350.1.13.10 ity of [place] 4.2.7.2.686 [place] as TOÑO?BLEA [id number] [address] MEDICAL OFFICE [facility] 2021-08-03 2021-08-03 Office SOURAV Diaz 1.2.840.114 [id number] Univers 11:00:00 12:48:43 Visit Jayy Y 350.1.13.10 it y of [facility] 4.2.7.2.686 Martin as BANK [id number] [address] 2021-08-03 2021-08-03 Outpatient R EMILY [facility] [id number] Univers 11:00:00 12:48:43 JAYY ity [facility] 2021-08-03 2021-08-03 Outpatient R EMILY [facility] [id number] Univers 11:00:00 11:00:00 JAYY ankush [facility] 2021-08-03 2021-08-03 Patient Ap[facility]vaPRES[facility]TER[facility] 1.2.840.114 [id number] Univers 00:00:00 00:00:00 Secure Msg Celina A FLACO 350.1.13.10 ity of [facility] 4.2.7.2.686 [place] [id number] [address] 2021-08-02 2021-08-02 Telephone [facility]PRESBY[facility] 1.2.770.199 [id number] Univers 00:00:00 00:00:00 Vijay HEALTH 350.1.13.10 it y [facility] 4.2.7.2.686 [place] as TOÑO?BLEA [id number] [address] OFFICE [facility] 2021-07-21 2021-07-21 Outpatient R DARRION WYATT [facility] [id number] Univers 08:00:00 08:52:53 DARRION WYATT [facility] 2021-07-17 2021-07-17 Outpatient R JUAN [facility] [id number] Univers 11:30:00 11:30:00 VIJAY [facility]adiagaCH[facility] 2021-07-17 2021-07-17 Patient JuanPRES[facility] 1.2.840.114 [id number] Univers 00:00:00 00:00:00 Secure Msg Vijay Xingshuai Teach 350.1.13.10 ity of [place] 4.2.7.2.686 [place] as TOÑO?BLEA [id number] [address] 2021-06-19 2021-06-19 Telephone [facility] 1.2.178.520 [id number] Univers 00:00:00 00:00:00 Vijay HEALTH 350.1.13.10 it y of [place] 4.2.7.2.686 [place] as TOÑO?BLEA [phone] [address] OFFICE [facility] 2021-06-09 2021-06-09 Telephone [facility]junPRES[facility]TER[facility] 1.2.245.241 [id number] Univers 00:00:00 00:00:00 Reji [facility] 350.1.13.10 ity of [place] 4.2.7.2.[place] [id number] [facility] 059 [facility] 2021-06-06 2021-06-06 Outpatient R DEYVI [facility] [id number] Univers 11:15:00 11:15:00 TETO lechuga [facility] 2021-06-06 2021-06-06 Outpatient R DEYVI [facility] [id number] Univers 11:15:00 11:15:00 TETO lechuga [facility] 2021-06-02 2021-06-02 Outpatient R CRISTINA [facility] [id number] Univers 15:45:00 15:45:00 WONDIFUL ity o f [facility] 2021-05-31 2021-05-31 Outpatient R JUAN [facility] [id number] Univers 10:00:00 10:46:31 VIJAY lechuga [facility] 2021-05-31 2021-05-31 Office VíctorkathyPRESBYTERIAN [facility] 1.2.840.114 [id number] Univers 10:00:00 10:46:31 Visit Vijay HEALTH 350.1.13.10 it y of [place] 4.2.7.2.686 [place] as TOÑO?BLEA [id number] [address] MEDICAL OFFICE [facility] 2021-05-31 2021-05-31 Outpatient R JUAN [facility] [id number] Univers 10:00:00 10:46:31 VIJAY lechuga [facility] 2021-05-31 2021-05-31 Orders Doctor JORDAN 1.2.840.114 [id number] Univers 00:00:00 00:00:00 Only Unassigned, YAZMIN 350.1.13.10 ity of [place] [facility] 4.2.7.2.686 [place] as [id number] [address] 2021-05-26 2021-05-26 Telephone YaneliPRESBYTERIAN [facility] 1.2.882.367 [id number] Univers 00:00:00 00:00:00 Skylar A HEALTH 350.1.13.10 i ty of [place] 4.2.7.2.686 [place] as TOÑO?BLEA [id number] [address] MEDICAL OFFICE [facility] 2021-05-26 2021-05-26 Patient Prasanna Vargas [facility] 1.2.035.894 [id number] Univers 00:00:00 00:00:00 Secure Msg Cam [place] 350.1.13.10 ity of [place] 4.2.7.2.686 [place] [id number] Ca dicaliyah NAL 134 [facility] 2021-05-25 2021-05-25 Telemedici YaneliPRESBYTERIAN [facility] 1.2.840.114 [id number] Univers 14:00:00 14:30:00 ne Visit Skylar A HEALTH 350.1.13.10 ity of [place] 4.2.7.2.686 [place] as TOÑO?BLEA [phone] [facility] IVÁN[address] 2021-05-25 2021-05-25 Outpatient R [facility]IK[facility] [id number] Univers 14:00:00 14:00:00 [facility] 2021-05-25 2021-05-25 Outpatient R YANELIKET[facility] [id number] Univers 14:00:00 14:00:00 [facility] 2021-05-25 2021-05-25 Patient YaneliPRES[facility]TER[facility] 1.2.840.114 [id number] Univers 00:00:00 00:00:00 Secure Msg Skylar A HEALTH 350.1.13.10 ity of [place] 4.2.7.2.686 [place] as TOÑO?BLEA [id number] [address] 2021-05-25 2021-05-25 Patient YaneliPRESBYTERIAN [facility] 1.2.840.114 [id number] Univers 00:00:00 00:00:00 Secure Msg Skylar A HEALTH 350.1.13.10 ity of [place] 4.2.7.2.686 [place] as TOÑO?BLEA [id number] [address] 2021-05-24 2021-05-24 Telephone Ponce [facility] 1.2.757.377 [id number] Univers 00:00:00 00:00:00 Sendzohra Cuello [place] 350.1.13.10 ity of [place] 4.2.7.2.686 [place] [id number] [facility]ah [place] 059 [facility] 2021-05-24 2021-05-24 Patient Serra, [facility] 1.2.840.114 [id number] Univers 00:00:00 00:00:00 Secure Msg Sendil [facility] [place] 350.1.13.10 ity [facility] 4.2.7.2.[place] [id number] Ca whit TORRES 059 [facility] 2021-05-24 2021-05-24 Patient CristinaPRESBYTERIAN [facility] 1.2.840.114 [id number] Univers 00:00:00 00:00:00 Secure Msg Wondiful A HEALTH 350.1.13.10 ity of [place] 4.2.7.2.686 [place] as TOÑO?BLEA [id number] [address] OFFICE [facility] 2021-05-23 2021-05-23 Outpatient R [facility] [id number] Univers 10:00:00 10:00:00 ity [facility] 2021-05-23 2021-05-23 Outpatient R [facility] [id number] Univers 10:00:00 10:00:00 ity of [facility] 2021-05-23 2021-05-23 Patient CristinaPRESBYTERIAN [facility] 1.2.840.114 [id number] Univers 00:00:00 00:00:00 Secure Msg Wondiful A HEALTH 350.1.13.10 ity of [place] 4.2.7.2.686 [place] as TOÑO?BLEA [id number] [address] OFFICE [facility] 2021-05-16 2021-05-16 Outpatient R [facility] [id number] Univers 09:00:00 09:00:00 TETO ity [facility] 2021-05-12 2021-05-12 Orders Doctor JORDAN 1.2.840.114 [id number] Univers 00:00:00 00:00:00 Only Unassigned, YAZMIN 350.1.13.10 ity of [place] [facility] 4.2.7.2.686 [place] as [phone] [address] 2021-05-10 2021-05-10 Outpatient R CRISTINAKETTER[facility] [id number] Univers 13:00:00 13:00:00 WONDIFUL ity o f [facility] 2021-05-10 2021-05-10 Outpatient R CRISTINA [facility] [id number] Univers 13:00:00 13:00:00 WONDIFUL ity o f [facility] 2021-05-09 2021-05-09 Telephone Prasanna Vargas [facility] 1.2.840.114 [id number] Univers 00:00:00 00:00:00 Cam [place] 350.1.13.10 i ty of [facility] 4.2.7.2.[place] [phone] Ca dicnc NAL 134 [facility] 2021-05-09 2021-05-09 Patient [facility]PRES[facility] 1.2.840.114 [id number] Univers 00:00:00 00:00:00 Secure Msg Sendil [facility] [place] 350.1.13.10 ity of [facility] 4.2.7.2.[place] [id number] Ca dicnc NAL 9 [facility] 2021-05-08 2021-05-08 Outpatient R YASMEENKET[facility] [id number] Univers 16:00:00 16:00:00 JEDAYANA lechuga [facility] 2021-05-08 2021-05-08 Outpatient R YASMEENKET[facility] [id number] Univers 16:00:00 16:00:00 JEDAYANA lechuga [facility] 2021-05-08 2021-05-08 Patient [facility]PRES[facility] 1.2.840.114 [id number] Univers 00:00:00 00:00:00 Secure Msg Sendil [facility] [place] 350.1.13.10 ity of [facility] 4.2.7.2.[place] [phone] Ca dical [place]AL 059 [facility] 2021-05-08 2021-05-08 Patient [facility]arPRESBYTER[facility] 1.2.840.114 [id number] Univers 00:00:00 00:00:00 Secure Msg Sendil [facility] [place] 350.1.13.10 ity of [place] 4.2.7.2.686 [place] [id number] Ca dical NAL 059 [facility] 2021-05-04 2021-05-04 Patient Serra, [facility] 1.2.840.114 [id number] Univers 00:00:00 00:00:00 Secure Msg Rad Benoit.H. [place] 350.1.13.10 ity of [place] 4.2.7.2.686 [place] [phone] Ca dical NAL 059 [facility] 2021-05-04 2021-05-04 Patient [facility] 1.2.840.114 [id number] Univers 00:00:00 00:00:00 Secure Msg Reji [place] 350.1.13.10 ity of [place] 4.2.7.2.686 [place] 345.5464698 Ca dicnc NAL 9 [facility] 2021-05-03 2021-05-03 Outpatient R ARJUNKET[facility] [id number] Univers 11:15:36 23:59:00 REJI maradiagay o f [facility] 2021-05-03 2021-05-03 [facility] 1.2.840.114 [id number] Univers 11:15:36 23:59:00 Encounter Reji [place] 350.1.13.10 ity of [place] 4.2.7.2.[place] [phone] [facility] 846 [facility] 2021-05-03 2021-05-03 Telephone CristinaPRESBYTER[facility] 1.2.840.114 [id number] Univers 00:00:00 00:00:00 Wondiful A HEALTH 350.1.13.10 ity of [place] 4.2.7.2.686 [place] as TOÑO?BLEA [id number] Ca dicaliyah KNEY 044 [facility] 2021-05-02 2021-05-02 Telephone [facility]PRES[facility] 1.2.237.510 [id number] Univers 00:00:00 00:00:00 Sendzohra [facility] [place] 350.1.13.10 ity of [place] 4.2.7.2.[place] [id number] Ca dical NAL 9 [facility] 2021-05-02 2021-05-02 Patient Cristina [facility] 1.2.840.114 [id number] Univers 00:00:00 00:00:00 Secure Msg Wondiful A HEALTH 350.1.13.10 ity of [place] 4.2.7.2.686 [place] TOÑO?BLEA [id number] [address] OFFICE [facility] 2021-05-02 2021-05-02 Telephone Cristina [facility] 1.2.840.114 [id number] Univers 00:00:00 00:00:00 Wondiful A HEALTH 350.1.13.10 ity of [place] 4.2.7.2.686 [place] as TOÑO?BLEA [id number] [address] 2021-05-02 2021-05-02 Patient [facility]PRES[facility] 1.2.840.114 [id number] Univers 00:00:00 00:00:00 Secure Msg Sendil [facility] [place] 350.1.13.10 ity of [place] 4.2.7.2.[place] [phone] [address] 2021-05-02 2021-05-02 Patient Cristina [facility] 1.2.840.114 [id number] Univers 00:00:00 00:00:00 Secure Msg Wondiful A HEALTH 350.1.13.10 ity of [place] 4.2.7.2.686 [place] as TOÑO?BLEA [id number] [address] 2021-04-28 2021-04-28 Patient [facility]inaPRESBYTER[facility] 1.2.840.114 [id number] Univers 00:00:00 00:00:00 Secure Msg Wondiful A HEALTH 350.1.13.10 ity of [place] 4.2.7.2.686 [place] TOÑO?BLEA [id number] [address] 2021-04-27 2021-04-27 Emergency X [facility]FONSOPRESBYTERIAN [facility] ERT [id number] Univers 14:24:00 15:49:00 MAGGIE ity of [facility] 2021-04-27 2021-04-27 Emergency Alfonso, [facility] 1.2.840.114 [id number] Univers 14:24:00 15:49:00 Maggie [place] 350.1.13.10 ity of [place].2.7.2.[place] [id number] [facility] [address] [place] 2021-04-27 2021-04-27 Laboratory Only, Ang Db Test [facility] 1.2.8 40.114 [id number] Univers 11:15:00 11:30:00 Only Unknown, Attending HEALTH 350.1.13.10 ity of [place] 4.2.7.2.686 [place] TOÑO?BLEA [phone] [facility] [address] MEDICAL OFFICE BUILDING 2021-04-27 2021-04-27 Outpatient R SIL [facility] [id number] Univers 11:15:00 11:15:00 [facility] 2021-04-27 2021-04-27 Orders Doctor JORDAN 1.2.840.114 [id number] Univers 00:00:00 00:00:00 Only Unassigned, YAZMIN 350.1.13.10 [facility] 4.2.7.2.[address] [place] [phone] [facility] [address] 2021-04-20 2021-04-20 Outpatient R JUSTINE [facility] [id number] Univers 15:00:00 15:00:00 EDER ity of [facility] 2021-04-13 2021-04-13 Patient Cristina [facility] 1.2.840.114 [id number] Univers 00:00:00 00:00:00 Secure Msg Wondiful A HEALTH 350.1.13.10 ity of [place] 4.2.7.2.686 [place] TOÑO?BLEA [id number] [facility] [address] MEDICAL OFFICE BUILDING 2021-04-12 2021-04-12 Telephone Cristina [facility] 1.2.840.114 [id number] Univers 00:00:00 00:00:00 Wondiful A HEALTH 350.1.13.10 ity of [place] 4.2.7.2.686 [place] TOÑO?BLEA [phone] Ca dical [place] [address] MEDICAL OFFICE BUILDING 2021-03-27 2021-03-27 Telephone Prasanna Vargas [facility] 1.2.840.114 [id number] Univers 00:00:00 00:00:00 [facility] 350.1.13.10 i [place] [id number] Ca dical NAL [address] BU[address]ING 2021-03-24 2021-03-24 Patient Doctor JORDAN 1..840.114 [id number] Univers 00:00:00 00:00:00 Secure Msg Unassigned, YAZMIN 350.1.13.10 [facility] 4.2.7.2.686 [place] [phone] [address] 2021-03-23 2021-03-23 Outpatient R KAVYA [facility] [id number] Univers 13:30:00 13:30:00 CHILVANA ity o f [facility] 2021-03-23 2021-03-23 Outpatient R KAVYA [facility] [id number] Univers 13:30:00 13:30:00 CHIL[place]NA ity o f [facility] 2021-03-22 2021-03-22 Outpatient R ADITYA MEEKS [facility] [id number] Univers 09:20:00 09:20:00 NEHEMIAH MEEKSINL ity [facility] 2021-03-22 2021-03-22 Outpatient R NEHEMIAH MEEKSINEz [facility] [id number] Univers 09:20:00 09:20:00 NEHEMIAH MEEKSINL ity [facility] 2021-03-20 2021-03-20 Outpatient R CRISTINA [facility] [id number] Univers 00:00:00 00:00:00 WONDIFUL ity o f [facility] 2021-03-18 2021-03-18 [facility]onal[facility] 1.2.840.114 [id number] Univers 00:00:00 00:00:00 Management Wondiful A HEALTH 350.1.13.10 ity of [place] 4.2.7.2.686 Martin as TOÑO?BLEA [phone] Ca whit [place] [address] [place] MEDICAL OFFICE [facility] 2021-03-16 2021-03-16 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, Ang - Db [facility] 1.2.840.1 14 [id number] Univers 11:16:07 11:31:07 Visit Claudette Evans A HEALTH 350.1.13.1 0 ity of [place] 4.2.7.2.686 Martin as TOÑO?BLEA [phone] Ca whit [place] [address] [facility] OFFICE [facility] 2021-03-16 2021-03-16 Outpatient R [facility] [id number] Univers 11:30:00 11:30:00 WONDIFUL ity o f [facility] 2021-03-16 2021-03-16 Outpatient [facility] [id number] Univers 11:00:00 11:14:45 WONDIFUL ity o f [facility] 2021-03-16 2021-03-16 Office [facility] 1.2.840.114 [id number] Univers 10:00:58 11:14:45 Visit Wonkacey A HEALTH 350.1.13.10 ity of [place] 4.2.7.2.686 Martin as TOÑO?BLEA [id number] [address] OFFICE [facility] 2021-03-16 2021-03-16 Patient [facility] 1.2.840.114 [id number] Univers 00:00:00 00:00:00 Secure Msg Wondiful A HEALTH 350.1.13.10 ity of [place] 4.2.7.2.686 Martin as TOÑO?BLEA [phone] [facility] [address] MEDICAL OFFICE [facility] 2021-03-02 2021-03-02 Outpatient R CRISTINA [facility] [id number] Univers 16:15:00 16:15:00 WONDIFUL ity o f [facility] 2021-02-28 2021-02-28 Outpatient R MITCHELL [facility] [id number] Univers 18:30:00 18:30:00 ILEANA lechuga [facility] 2021-02-28 2021-02-28 Telephone [facility] 1.2.840.114 [id number] Univers 00:00:00 00:00:00 Wondiful A Health 350.1.13.10 ity of [place] 4.2.7.2.686 Martin as Toño?Blea [id number] [address] 2021-02-27 2021-02-27 Outpatient R STEPHANY [facility] [id number] Univers 09:00:00 09:00:00 AMELIA lechuga [facility] 2021-02-23 2021-02-23 Telephone [facility] 1.2.840.114 [id number] Univers 00:00:00 00:00:00 Wondiful A Health 350.1.13.10 ity of [place] 4.2.7.2.686 Martin as Toño?Blea [phone] [address] 2021-02-10 2021-02-10 Emergency Dev, Kaycee [facility] 1.2.840.114 [id number] Univers 18:12:00 23:39:00 Sharlene [place] 350.1.13.10 i ty of [place] 4.2.7.2.686 [place] [phone] [facility] [address] [place] 2021-02-10 2021-02-10 Patient [facility] 1.2.840.114 [id number] Univers 00:00:00 00:00:00 Secure Msg Wondiful [facility] 350.1.13.10 [facility] 4.2.7.2.686 [place] as TOÑO?BLEA [phone] [address] 2021-02-10 2021-02-10 Patient [facility] 1.2.840.114 [id number] Univers 00:00:00 00:00:00 Secure Msg Wondiful A HEALTH 350.1.13.10 ity of [place] 4.2.7.2.686 Martin as TOÑO?BLEA [phone] [address] MEDICAL OFFICE [facility] 2021-02-10 2021-02-10 Patient [facility] 1.2.840.114 [id number] Univers 00:00:00 00:00:00 Secure Msg Wondiful A HEALTH 350.1.13.10 ity of [place] 4.2.7.2.686 Martin as TOÑO?BLEA [phone] Ca whit [place] [address] [place] MEDICAL OFFICE [facility] 2021-02-10 2021-02-10 Patient [facility] 1.2.840.114 [id number] Univers 00:00:00 00:00:00 Secure Msg Wondiful A HEALTH 350.1.13.10 ity of [place] 4.2.7.2.686 Martin as TOÑO?BLEA [phone] Ca whit [place] [address] [place] MEDICAL OFFICE [facility] 2021-02-09 2021-02-09 Hospital [facility] 1.2.724.150 [id number] Univers 13:40:00 23:59:00 Encounter Wondiful A Health 350.1.13.10 ity of [place] 4.2.7.2.686 Martin as Toño?Blea [phone] Ca whit [place] [facility] Office [facility] 2021-02-09 2021-02-09 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, Ang - [facility] 1.2.840.1 14 [id number] Univers 13:49:05 14:04:05 Visit Claudette [facility] 350.1.13.1 0 ity of [place] 4.2.7.2.686 Martin as Toño?Blea [phone] Ca whit [place] [address] [place] [facility] 2021-02-09 2021-02-09 Office [facility]PRES[facility] 1.2.840.114 [id number] Univers 12:23:13 13:47:12 Visit Wonlgful A Health 350.1.13.10 ity of [place] 4.2.7.2.686 Martin as Toño?Blea [phone] Ca whit [place] [facility] Office [facility] 2021-02-09 2021-02-09 Outpatient R CRISTINA [facility] [id number] Univers 13:00:00 13:00:00 WONDIFUL ity o f [facility] 2021-02-09 2021-02-09 Patient Doctor ORTEGA 1.2.840.114 [id number] Univers 00:00:00 00:00:00 Secure Msg Unassigned, YAZMIN 350.1.13.10 [facility] 4.2.7.2.686 Martin as [phone] [address] 2021-02-08 2021-02-08 Outpatient R ADITYA MEEKS [facility] [id number] Univers 10:20:00 10:20:00 [facility] itchino [facility] 2021-02-07 2021-02-07 Patient [facility] 1.2.840.114 [id number] Univers 00:00:00 00:00:00 Secure Msg Wondiful A HEALTH 350.1.13.10 ity of [place] 4.2.7.2.686 Martin as TOÑO?BLEA [id number] [address] MEDICAL OFFICE [facility] 2021-02-02 2021-02-02 Outpatient R [facility] [id number] Univers 10:30:00 10:30:00 SKYLAR lechuga [facility] 2021-02-02 2021-02-02 Telephone [facility]PRES[facility] 1.2.840.114 [id number] Univers 00:00:00 00:00:00 Wondiful A Health 350.1.13.10 ity of [place] 4.2.7.2.686 Martin as Toño?Blea [id number] [address] Medical Office [facility] 2021-02-01 2021-02-01 Outpatient R [facility] [id number] Univers 08:30:00 08:30:00 SKYLARLEE lechuga [facility] 2021-01-31 2021-01-31 Urgent OliverPRES[facility]TER[facility] 1.2.840.114 [id number] Univers 18:44:04 19:41:26 Care [facility] 350.1.13.10 i ty of [place] 4.2.7.2.686 Martin as Toño?Blea [phone] Ca whit [place] [address] [place] Medical Office [facility] 2021-01-31 2021-01-31 Outpatient R OLIVER [facility] [id number] Univers 19:00:00 19:00:00 FLACO lechuga o f [facility] 2021-01-31 2021-01-31 Telephone Cristina [facility] 1.2.840.114 [id number] Univers 00:00:00 00:00:00 Wondiful A Health 350.1.13.10 ity of [place] 4.2.7.2.686 [place] as Toño?Blea [phone] Ca dicaliyah [place] [facility] Office [facility] 2021-01-31 2021-01-31 Patient Cristina [facility] 1.2.840.114 [id number] Univers 00:00:00 00:00:00 Secure Msg Wondiful A HEALTH 350.1.13.10 ity of [place] 4.2.7.2.686 Martin as TOÑO?BLEA [phone] [facility] [place] [address] [facility] OFFICE [facility] 2021-01-30 2021-01-30 Telephone [facility]PRES[facility]TER[facility] 1.2.867.453 [id number] Univers 00:00:00 00:00:00 Sendil Cuate [place] 350.1.13.10 ity of [place] 4.2.7.2.686 [place] [phone] Ca whit [place] 059 [facility] 2021-01-30 2021-01-30 Patient [place] [facility] 1.2.840.114 [id number] Univers 00:00:00 00:00:00 Secure Msg Wondiful A HEALTH 350.1.13.10 ity of [place] 4.2.7.2.686 Martin as PROFESSIO [phone] [address] OFFICE [facility] ONE 2021-01-26 2021-01-26 Outpatient R PONCE [facility] [id number] Univers 14:00:00 14:00:00 SENDIL itchino of [facility] 2021-01-26 2021-01-26 Patient Yaneli [facility] 1.2.840.114 [id number] Univers 00:00:00 00:00:00 Secure Msg Skylar A HEALTH 350.1.13.10 ity of [place] 4.2.7.2.686 Martin as TOÑO?BLEA [phone] [address] OFFICE [facility] 2021-01-25 2021-01-25 Outpatient R [facility] [id number] Univers 15:00:00 15:00:00 ity of [facility] 2021-01-21 2021-01-21 Patient [facility]PRES[facility] 1.2.840.114 [id number] Univers 00:00:00 00:00:00 Secure Msg Skylar A HEALTH 350.1.13.10 ity of [place] 4.2.7.2.686 [place] as TOÑO?BLEA [phone] [address] 2021-01-20 2021-01-20 [facility] 1.2.840.114 [id number] Univers 16:51:22 17:12:41 ne Visit Skylar [facility] 350.1.13.10 ity of [place] 4.2.7.2.686 [place] as Toño?Blea [phone] [address] 2021-01-20 2021-01-20 Outpatient R [facility]IK[facility] [id number] Univers 16:30:00 16:30:00 SKYLAR [facility] 2021-01-19 2021-01-19 Outpatient [facility] [id number] Univers 10:15:00 10:15:00 KAYLEY ity [facility] 2021-01-14 2021-01-14 JORDAN Guzman 1.2.840.114 [id number] Univers 00:00:00 00:00:00 Management Kassandra ARCE 350.1.13.10 ity [facility] 4.2.7.2.686 [place] as [phone] [address] 2021-01-14 2021-01-14 Patient Doctor JORDAN 1.2.840.114 [id number] Univers 00:00:00 00:00:00 Secure Msg Unassigned, YAZMIN 350.1.13.10 [facility] 4.2.7.2.[phone] [facility] [address] 2021-01-12 2021-01-12 Emergency [facility] 1.2.967.470 [id number] Univers 16:10:00 19:45:00 Karin Yanes Lulu 350.1.13.10 i ty of [place] 4.2.7.2.686 [place] [phone] [facility] [address] [place] 2021-01-12 2021-01-12 Outpatient [facility] [id number] Univers 15:20:00 15:20:00 ILEANA [facility] 2021-01-12 2021-01-12 Urgent Thony Johnson [facility] 1.2.840.114 [id number] Univers 14:46:57 15:06:57 [facility] 350.1.13.10 ity of [place] 4.2.7.2.686 [place] as Toño?Blea [phone] [address] Medical Office Building 2020-12-26 2020-12-26 Outpatient R [facility] [id number] Univers 15:30:00 16:13:32 SENDIL ity of [facility] 2020-12-26 2020-12-26 Office [facility] 1.2.840.114 [id number] Univers 15:30:00 16:13:32 Visit Rad LAWSON 350.1.13.10 ity of [place].2.7.2.686 [place] [phone] Ca dicnc NAL [address] [facility] 2020-12-26 2020-12-26 Office [facility] 1.2.840.114 [id number] Univers 15:00:32 16:13:32 Visit Rad Lawson 350.1.13.10 ity of [place] 4.2.7.2.686 [place] [phone] Ca dicnc nal [address] [facility] 2020-12-26 2020-12-26 Outpatient [facility] [id number] Univers 15:30:00 15:30:00 SENDIL itchino [facility] 2020-11-29 2020-11-29 Patient Ponce [facility] 1.2.840.114 [id number] Univers 00:00:00 00:00:00 Secure Msg Sendil Cuate LULU 350.1.13.10 [facility] 4.2.7.2.686 [facility] [phone] Ca dical NAL [address] BUILDING 2020-11-22 2020-11-22 Outpatient R [facility] [id number] Univers 11:00:00 11:00:00 CELINA ankush [facility] 2020-11-10 2020-11-10 Urgent Alissa Collins [facility] 1.2.840.114 [id number] 18:42:46 19:53:43 [facility] 350.1.13.10 [place] 4.2.7.2.686 Professio [phone] nal [address] Building One 2020-11-10 2020-11-10 Outpatient R [facility] [id number] Univers 19:00:00 19:00:00 ity [facility] 2020-10-31 2020-10-31 Emergency Kaycee Méndez [facility] 1.2.840.114 [id number] 18:52:00 22:15:00 Sharlene [place] 350.1.13.10 [place] 4.2.7.2.686 [place] [id number] 084 2020-10-31 2020-10-31 Outpatient R [facility]AK[facility] [id number] Univers 19:00:00 19:00:00 CARI lechuga o f [facility] 2020-10-31 2020-10-31 Orders Doctor ORTE[place] 1.2.840.114 [id number] 00:00:00 00:00:00 Only Unassigned, YAZMIN 350.1.13.10 [place] [facility] [phone] 009 2020-10-20 2020-10-20 Emergency Kaycee Méndez [facility] 1.2.840.114 [id number] 14:02:00 17:13:00 Sharlene [place] 350.1.13.10 [place] 4.2.7.2.686 [place] [id number] 084 2020-10-18 2020-10-18 Patient Prasanna Vargas [facility] 1.2.924.955 [id number] Univers 00:00:00 00:00:00 Secure Msg Cam [place] 350.1.13.10 ity [facility] 4.2.7.2.686 [place] [phone] [address] 2020-10-14 2020-10-14 Hospital Prasanna Vargas [facility] 1.2.840.114 [id number] 10:00:00 23:59:00 Encounter Cam [place] 350.1.13.10 [place] 4.2.7.2.686 [place] [id number] 806 2020-10-14 2020-10-14 Outpatient Farzana MIXON [facility] [id number] Univers 13:30:00 13:30:00 CELINA lechuga [facility] 2020-10-11 2020-10-11 Patient Prasanna Vargas [facility] 1.2.036.442 [id number] Univers 00:00:00 00:00:00 Secure Msg Cam [place] 350.1.13.10 ity of [place] 4.2.7.2.686 [place] [id number] [address] 2020-10-11 2020-10-11 Patient Prasanna Vargas [facility] 1.2.827.466 [id number] Univers 00:00:00 00:00:00 Secure Msg Cam [place] 350.1.13.10 ity [facility] 4.2.7.2.686 [place] [phone] [address] 2020-10-09 2020-10-[address] [facility] 1.2.040.419 [id number] 12:00:00 15:57:00 Anna Ricketts [place] 350.1.13.10 [place] 4.2.7.2.686 [place] [phone] 084 2020-10-07 2020-10-07 Patient Prasanna Vargas [facility] 1.2.604.330 [id number] Univers 00:00:00 00:00:00 Secure Msg Cam [place] 350.1.13.10 ity of [place] 4.2.7.2.686 [place] [phone] Ca dical NAL [address] [place] [address] 2020-10-07 2020-10-07 Patient Prasanna Vargas [facility] 1.2.668.230 [id number] Univers 00:00:00 00:00:00 Secure Msg Cam [place] 350.1.13.10 ity of [place] 4.2.7.2.686 [place] [phone] Ca dical NAL [address] [place] [address] 2020-10-07 2020-10-07 Patient Prasanna Vargas [facility] 1.2.877.463 [id number] Univers 00:00:00 00:00:00 Secure Msg Cam [place] 350.1.13.10 ity of [place] 4.2.7.2.686 [place] [phone] Ca dical NAL [address] [place] [address] 2020-10-07 2020-10-07 Patient Prasanna VargasMB 1.2.879.468 [id number] Univers 00:00:00 00:00:00 Secure Msg Cam [place] 350.1.13.10 ity of [place] 4.2.7.2.686 [place] [phone] Ca dical NAL [address] [place] [address] 2020-10-07 2020-10-07 Patient Prasanna VargasMB 1.2.738.475 [id number] Univers 00:00:00 00:00:00 Secure Msg Cam [place] 350.1.13.10 ity of [place] 4.2.7.2.686 [place] [phone] Ca dical NAL [address] [place] [address] 2020-10-07 2020-10-07 Patient Prasanna Vargas [facility] 1.2.248.602 [id number] Univers 00:00:00 00:00:00 Secure Msg Cam [place] 350.1.13.10 ity of [place] 4.2.7.2.686 [place] [phone] Ca dical NAL [address] [place] [address] 2020-10-07 2020-10-07 Patient Prasanna Vargas [facility] 1.2.394.935 [id number] Univers 00:00:00 00:00:00 Secure Msg Cam [place] 350.1.13.10 ity of [place] 4.2.7.2.686 [place] [phone] Ca dic[address] 2020-10-06 2020-10-06 Office Prasanna Vargas [facility] 1.2.413.190 [id number] 08:53:00 09:46:44 Visit Cam [place] 350.1.13.10 [place] 4.2.7.2.686 Professio [phone] [address] 2020-10-06 2020-10-06 Outpatient R ALICIA [facility] [id number] Univers 09:30:00 09:30:00 [facility] 2020-10-04 2020-10-04 Outpatient R APURVA [facility] [id number] Univers 14:00:00 14:00:00 CELINA [facility] 2020-09-30 2020-09-30 Outpatient R APURVA [facility] [id number] Univers 10:30:00 10:30:00 CELINA [facility] 2020-09-29 2020-09-29 Outpatient [facility] [id number] Univers 13:45:00 13:45:00 PREET chino [facility] 2020-09-06 2020-09-06 Outpatient R ALICIA [facility] [id number] Univers 15:30:00 15:30:00 [facility] 2020-09-05 2020-09-05 Patient Prasanna Vargas [facility] 1.2.598.166 [id number] Univers 00:00:00 00:00:00 Secure Msg Cam [place] 350.1.13.10 ity [facility] 4.2.7.2.686 [place] [phone] Ca dical [address] 2020-09-02 2020-09-02 Outpatient DARRION QUIROZ [facility] [id number] Univers 15:40:00 15:40:00 DARRION WYATT [facility] 2020-08-31 2020-08-31 Outpatient Farzana SERRA [facility] [id number] Univers 10:30:00 10:30:00 SENDIL [facility] 2020-08-31 2020-08-31 Patient Prasanna Vargas [facility] 1.2.750.596 [id number] Univers 00:00:00 00:00:00 Secure Msg [facility].13.10 [facility] 4.2.7.2.686 Terrie dailey PROFESSIO [phone] Ca dical [address] 2020-08-18 2020-08-18 Outpatient R PRASANNA VARGAS [facility] [id number] Univers 09:30:00 09:30:00 [facility] 2020-08-11 2020-08-11 Outpatient R PRASANNA VARGAS [facility] [id number] Univers 13:30:00 13:30:00 [facility] 2020-08-04 2020-08-04 Outpatient R JUSTINE [facility] [id number] Univers 14:00:00 14:00:00 EDER [facility] 2020-07-28 2020-07-28 Outpatient Farzana SERRA [facility] [id number] Univers 10:30:00 10:30:00 SENDIL [facility] 2020-06-30 2020-06-30 Outpatient Farzana EVANS [facility] [id number] Univers 16:15:00 16:15:00 WONDIFUL ity o f [facility] 2020-06-17 2020-06-17 Outpatient DARRION QUIROZ [facility] [id number] Univers 15:00:00 15:00:00 DARRION WYATT [facility] 2020-06-16 2020-06-16 Outpatient Farzana SERRA [facility] [id number] Univers 15:30:00 15:30:00 SENDIL [facility] 2020-06-09 2020-06-09 Outpatient R NI DISLA [facility] [id number] Univers 12:30:00 12:30:00 ity [facility] 2020-06-08 2020-06-08 Outpatient R NI DISLA [facility] [id number] Univers 08:00:00 08:00:00 ity [facility] 2020-06-02 2020-06-02 Outpatient R PONCE [facility] [id number] Univers 09:00:00 09:00:00 SENDIL ity [facility] 2020-05-28 2020-05-28 Outpatient R NATASHA [facility] [id number] Univers 10:00:00 10:00:00 CARI lechuga o f [facility] 2020-05-26 2020-05-26 Patient Cristina [facility] 1.2.840.114 [id number] Univers 00:00:00 00:00:00 Secure Msg [facility] 350.1.13.10 ity [facility] 4.2.7.2.686 [place] as PROFESSIO [phone] Ca dical NAL [address] OFFICE BUILDING ONE 2020-05-24 2020-05-24 Outpatient R NI DISLA [facility] [id number] Univers 10:00:00 10:00:00 [facility] 2020-05-24 2020-05-24 Patient Doctor [facility] 1.2.840.114 [id number] Univers 00:00:00 00:00:00 Secure Msg [facility] [place] 350.1.13.10 ity of [place].2.7.2.686 [place] [phone] Ca dical NAL [address] BUILDING 2020-05-19 2020-05-19 Outpatient R OSITO HITCHCOCK [facility] [id number] Univers 16:30:00 16:30:00 ity [facility] 2020-05-17 2020-05-17 Outpatient R DARRION WYATT [facility] [id number] Univers 13:00:00 13:00:00 DARRION WYATT [facility] 2020-05-16 2020-05-16 Outpatient R CRISTINA, [facility] [id number] Univers 16:00:00 16:00:00 WONDIFUL ity o f [facility] 2020-05-09 2020-05-09 Patient Cristina [facility] 1.2.840.114 [id number] Univers 00:00:00 00:00:00 Secure Msg Wondiful A HEALTH 350.1.13.10 ity of [place] 4.2.7.2.686 [place] as PROFESSIO [phone] Ca dical [address] OFFICE BUILDING ONE 2020-05-08 2020-05-08 Emergency X VIRGIE [facility] ERT [id number] Univers 10:24:00 13:03:00 OLAMIDE chino [facility] 2020-05-03 2020-05-03 Outpatient [facility] [id number] Univers 15:00:00 15:00:00 WONDIFUL ity o f [facility] 2020-04-30 2020-05-01 Outpatient X OHFF, [facility] [place] [id number] Univers 11:14:00 15:50:00 RODRIGUEZ [facility] 2020-04-30 2020-04-30 Outpatient [facility] [id number] Univers 10:20:00 10:20:00 ROSALES [facility] 2020-04-30 2020-04-30 [facility] [id number] Univers 10:15:00 10:15:00 ROSALES [facility] 2020-04-29 2020-04-29 Patient Heaven Hitchcocksir [facility] [id number] Univers 00:00:00 00:00:00 Secure Msg Y HEALTH [id number] ity of [facility] [id number] [address] 2020-04-28 2020-04-28 Outpatient R OSITO HITCHCOCK [facility] [id number] Univers 14:00:00 14:00:00 ity [facility] 2020-04-25 2020-04-25 [facility] [id number] Univers 16:15:00 16:15:00 WONDIFUL ity o f [facility] 2020-04-22 2020-04-22 Patient Justine [facility] [id number] Univers 00:00:00 00:00:00 Secure Msg [id number] Terrie ESCUDEROIO [id number] [address] 2020-04-18 2020-04-18 Outpatient R OSITO HITCHCOCK [facility] [id number] Univers 10:00:00 10:00:00 ity [facility] 2020-04-15 2020-04-15 Outpatient R PONCE [facility] [id number] Univers 10:30:00 10:30:00 [facility] 2020-04-12 2020-04-13 Outpatient X MARICRUZ [facility] [id number] Univers 13:38:00 16:25:00 [facility] 2020-03-17 2020-03-17 Outpatient R DEYVI [facility] [id number] Univers 16:15:00 16:15:00 [facility] 2020-03-04 2020-03-04 Refill [facility] [id number] 00:00:00 00:00:00 MULTISPEC [id number] IALTY [id number] CENTER [id number] [facility] 2020-02-25 2020-02-25 Outpatient R OSITO HITCHCOCK [facility] [id number] Univers 16:00:00 16:00:00 [facility] 2020 Outpatient R DEYVI [facility] [id number] Univers 14:00:00 14:00:00 TETO [facility] 2020-02-08 2020-02-08 Outpatient R PRASANNA VARGAS [facility] [id number] Univers 10:30:00 10:30:00 [facility] 2020-02-05 2020-02-05 Patient Prasanna Vargas [facility] [id number] Univers 00:00:00 00:00:00 Secure Msg Cam [place] 350.1.13.10 ity [place] [phone] Ca dical [address] 2020-02-04 2020-02-04 Outpatient R HEAVEN HITCHCOCKSIR [facility] [id number] Univers 13:30:00 13:30:00 ity [facility] 2020-01-23 2020-01-23 Outpatient R [facility] [id number] Univers 10:15:00 10:15:00 ity [facility] 2020-01-21 2020-01-21 Outpatient R CORETTA OSITO [facility] [id number] Univers 13:00:00 13:00:00 ity of [facility] 2020-01-14 2020-01-14 Outpatient R CORETTA OSITO [facility] [id number] Univers 16:00:00 16:00:00 ity [facility] 2020-01-05 2020-01-05 Outpatient R PRASANNA VARGAS [facility] [id number] Univers 13:45:00 13:45:00 ity of [facility] 2020-01-05 2020-01-05 Patient VargasPrasanna [facility] [id number] Univers 00:00:00 00:00:00 Secure Msg Cam [place] 350.1.13.10 [place] [phone] [address] 2019-12-03 2019-12-03 Outpatient R AKINLYNSEY, [facility] [id number] Univers 10:30:00 10:30:00 CRICKET ity o f [facility] 2019-11-27 2019-11-27 Outpatient R DEYVI [facility] [id number] Univers 11:00:00 11:00:00 TETO ity [facility] 2019-11-26 2019-11-26 Patient Doctor [place] [id number] Univers 00:00:00 00:00:00 Secure Msg Unassigned, [place] 350.1.13.10 ity of [facility] 4.2.7.2.686 [place] as [phone] [address] 2019-11-25 2019-11-25 Outpatient R DEYVI, [facility] [id number] Univers 08:00:00 08:00:00 TETO [facility] 2019-11-23 2019-11-23 Patient Doctor [facility] [id number] Univers 00:00:00 00:00:00 Secure Msg Unassigned, [place] 350.1.13.10 [place] [facility] [place] [phone] Ca dical [address] 2019-11-18 2019-11-18 Outpatient R DEYVI, [facility] [id number] Univers 10:00:00 10:00:00 TETO ankush [facility] 2019-11-17 2019-11-17 Patient Doctor [facility] [id number] Univers 00:00:00 00:00:00 Secure Msg Unassigned, [place] 350.1.13.10 [place] [phone] Ca dic[address] 2019-11-13 2019-11-13 Patient Prasanna Vargas [facility] [id number] Univers 00:00:00 00:00:00 Secure Msg Cam [place] 350.1.13.10 [facility] [place] [phone] Ca dical [address] 2019-09-02 2019-09-02 Outpatient R BRANDON, [facility] [id number] Univers 11:00:00 11:00:00 CRICKET lechuga o f [facility] 2019-08-14 2019-08-14 Outpatient R DEYVI [facility] [id number] Univers 10:15:00 10:15:00 TETO lechuga [facility] 2019-08-13 2019-08-13 Outpatient R BRANDON, [facility] [id number] Univers 11:00:00 11:00:00 CRICKET ity o f [facility] 2019-08-12 2019-08-12 Outpatient R [facility] [id number] Univers 09:00[facility]00 [facility] 2019-07-20 Outpatient P PRASANNA VARGAS [facility] CHRIS [id number] Univers 16:06:00 16:06:00 ity of [facility] 2019-07-20 2019-07-20 Outpatient R AKINSIPE, [facility] [id number] Univers 08:15:00 08:15:00 CRICKET ity o f [facility] 2019-07-13 2019-07-13 Outpatient R AKINSIPE, [facility] [id number] Univers 08:00:00 08:00:00 CRICKET ity o f [facility] 2019-07-12 2019-07-12 Outpatient P PRASANNA VARGAS [facility] CHRIS [id number] Univers 13:39:00 13:39:00 [facility] 2019-07-06 2019-07-06 Outpatient R AKINSIPE, [facility] [id number] Univers 13:00:00 13:00:00 CRICKET ity o f [facility] 2019-06-13 2019-06-13 Emergency X YARIMA, [facility] ERT [id number] Univers 10:40:46 12:35:00 WAKILI [facility] 2019-05-13 2019-05-14 Outpatient P PRASANNA VARGAS [facility] CHRIS [id number] Univers 23:07:00 09:15:00 [facility] Results Test Description Test Time Test [...] 34.0 g/dL 31.6-35.1 RDW-SD (test code = 55458-0) 40.3 fL 39.0-49.9 RDW-CV (test code = 788-0) 13.1 % 12.0-15.5 PLT (test code = 777-3) 307 See_Comment [Au tomated message] The system which Fincon nerated this result transmit renata reference range: 166 - 35 8 10*3/?L. The reference range was not used to interpret th is result as normal/abnormal . MPV (test code = 83690-2) 11.0 fL 9.5-12.9 NRBC/100 WBC (test code = 0.0 See_Comment [ Automated message] The 5853460799) system which Fincon nerated this result transmit renata reference range: 0.0 - 10 .0 /100 WBCs. The reference r david was not used to interpr et this result as normal/abnor mal. NRBC x10^3 (test code = See_Comment [Au tomated message] The 4922254983) system which Fincon nerated this result transmit renata reference range: 10*3/?L. The reference range was not u sed to interpret this result as normal/abnormal . GRAN MAT (NEUT) % (test code 52.0 % = 770-8) IMM GRAN % (test code = 0.20 % 6719923881) LYMPH % (test code = 736-9) 38.0 % MONO % (test code = 5905-5) 4.6 % EOS % (test code = 713-8) 4.6 % BASO % (test code = 706-2) 0.6 % GRAN MAT x10^3(ANC) (test 2.84 10*3/uL 1.88-7.09 code = 4038926793) IMM GRAN x10^3 (test code = 0.00-0.06 5520184575) LYMPH x10^3 (test code = 2.07 10*3/uL 1.32-3.29 731-0) MONO x10^3 (test code = 0.25 10*3/uL 0.33-0.92 L 742-7) EOS x10^3 (test code = 0.25 10*3/uL 0.03-0.39 711-2) BASO x10^3 (test code = 0.03 10*3/uL 0.01-0.07 704-7) Lab Interpretation (test Abnormal code = 85402-5) [facility]. METABOLIC PANEL ([id number])2023-01-12 04:12:43 Test Item Value Reference Range Interpretation Comments NA (test code = 137 mmol/L 135-145 4470100263) K (test code = 3.4 mmol/L 3.5-5.0 L 7773371088) CL (test code = 104 mmol/L 98-108 8615265394) CO2 TOTAL (test code = 24 mmol/L 23-31 6403756768) AGAP (test code = 9 2-16 8172799228) BUN (test code = 2 mg/dL 7-23 L 3377146908) GLUCOSE (test code = 92 mg/dL 70-110 7473746975) CREATININE (test code = 0.80 mg/dL 0.50-1.04 1664977829) TOTAL BILI (test code = 0.4 mg/dL 0.1-1.1 9298814920) CALCIUM (test code = 8.4 mg/dL 8.6-10.6 L 7290587998) T PROTEIN (test code = 6.3 g/dL 6.3-8.2 0815565928) ALBUMIN (test code = 3.7 g/dL 3.5-5.0 6071661396) ALK PHOS (test code = 87 U/L 34-122 0364775976) ALTv (test code = 27 U/L 5-35 1742-6) AST(SGOT) (test code = 33 U/L 13-40 4280253334) eGFR (test code = 86.0 mL/min/1.73m2 4158855841) WESLEY (test code = WESLEY) Association of [...] tests). Lab Interpretation Abnormal (test code = 22181-5) [facility]. METABOLIC PANEL ([id number])2023-01-12 04:12:43 Test Item Value Reference Range Interpretation Comments NA (test code = 137 mmol/L 135-145 6668898504) K (test code = 3.4 mmol/L 3.5-5.0 L 0501343387) CL (test code = 104 mmol/L 98-108 4020268270) CO2 TOTAL (test code = 24 mmol/L 23-31 6162187700) AGAP (test code = 9 2-16 9270476963) BUN (test code = 2 mg/dL 7-23 L 0259570235) GLUCOSE (test code = 92 mg/dL 70-110 6701458199) CREATININE (test code = 0.80 mg/dL 0.50-1.04 2463444262) TOTAL BILI (test code = 0.4 mg/dL 0.1-1.4 2403452197) CALCIUM (test code = 8.4 mg/dL 8.6-10.6 L 7205471964) T PROTEIN (test code = 6.3 g/dL 6.3-8.2 0273799455) ALBUMIN (test code = 3.7 g/dL 3.5-5.0 9643382158) ALK PHOS (test code = 87 U/L 34-122 7111484865) ALTv (test code = 27 U/L 5-35 1742-6) AST(SGOT) (test code = 33 U/L 13-40 7602463746) eGFR (test code = 86.0 mL/min/1.73m2 2084565836) WESLEY (test code = WESLEY) Association of [...] tests). Lab Interpretation Abnormal (test code = 26119-6) [facility] (QUANTITATIVE)2023-01-12 04:07:04 BETA HCG<2.39Non- female and male patients: <5 mIU/mL01/11/2023 11:07 PM [facility] Gestational Age ?Range (mIU/mL) 1-10 ?Weeks ?43-94519942-55 Weeks ?50199-03674267-13 Weeks ?2000-56180973-22 Weeks ?1531-928778 Biotin has been reported to cause a negative bias, interpret results relative to patient's use of biotin. Gestational Age ?Range (mIU/mL) 1-10 ?Weeks ?30-88032631-80 Weeks ?92995-50064537-89 Weeks ?4119-83296527-77 Weeks ?1531-014776 Biotin has been reported to cause a negative bias, interpret results relativeto patient's use of biotin. Gestational Age ?Range (mIU/mL) 1-10 ?Weeks ?15-16542153-55 Weeks ?73351-46947885-71 Weeks ?0602-54098552-56 Weeks ?1531-933646 Biotin has been reported to cause a negative bias, interpret results relative to patient's use of biotin.[facility] (QUANTITATIVE)2023-01-12 04:07:04BETA HCG<2.39Non- female and male patients: <5 mIU/mL01/11/2023 11:07 PM [facility] Gestational Age ?Range (mIU/mL) 1-10 ?Weeks ?41-29846937-57 Weeks ?10818-69180668-77 Weeks ?4251-74422449-35 Weeks ?1531-907867 Biotin has been reported to cause a negative bias, interpret results relative to patient's use of biotin. Gestational Age ?Range (mIU/mL) 1-10 ?Weeks ?44-2567 4011-15 Weeks ?79307-98988104-12 Weeks ?3562-34472350-73 Weeks ?1531-149238 Biotin has been reported to cause a negative bias, interpret results relativeto patient's use of biotin. Gestational Age ?Range (mIU/mL) 1-10 ?Weeks ? 92-52224934-48 Weeks ?82343-88135700-90 Weeks ?8705-04390319-75 Weeks ?1531-425169 Biotin has been reported to cause a negative bias, interpret results relative to patient's use of biotin. [facility] Test Item Value Reference Range Interpretation Comments LIPASE (test code = 6613668607) 41 U/L 0-220 Lab Interpretation (test code = Normal 32214-1) [facility] 03:22:58 Test Item Value Reference Range Interpretation Comments LIPASE (test code = 7709836518) 41 U/L 0-220 Lab Interpretation (test code = Normal 78240-4) [facility] [id number] 03:02:00 Test Item Value Reference Range Interpretation Comments POCT PREG (test code = 1605) Negative On board controls acceptable with Yes C Line (test code = 3574) POCT PREG LOT # (test code = 3575) [id number] POCT PREG TEST DATE (test 05/15/2024 code = 3576) Lab Interpretation (test code = Normal 12217-2) [facility] [id number] 03:02:00 Test Item Value Reference Range Interpretation Comments POCT PREG (test code = 1605) Negative On board controls acceptable with Yes C Line (test code = 3574) POCT PREG LOT # (test code = 3575) [id number] POCT PREG TEST DATE (test 05/15/2024 code = 3576) Lab Interpretation (test code = Normal 04305-2) [facility], [id number] 00:23:34 Test Item Value Reference Range Interpretation Comments PREG SERUM (test code Negative = 3551632075) WESLEY (test code = WESLEY) Less than 10 IU/L. ?If low titer or ectopic is suspected, resubmit specimen in 48-72 hours. [facility]. METABOLIC PANEL ([id number])2022-07-31 23:58:12 Test Item Value Reference Range Interpretation Comments NA (test code = 140 mmol/L 135-145 5433553114) K (test code = 3.6 mmol/L 3.5-5.0 5960529878) CL (test code = 106 mmol/L 98-108 8150959955) CO2 TOTAL (test code = 21 mmol/L 23-31 L 7456440879) AGAP (test code = 13 2-16 2573640827) BUN (test code = 8 mg/dL 7-23 3550537263) GLUCOSE (test code = 90 mg/dL 70-110 3241144177) CREATININE (test code = 0.90 mg/dL 0.50-1.04 4637675141) TOTAL BILI (test code = 0.5 mg/dL 0.1-1.0 8159503806) CALCIUM (test code = 9.0 mg/dL 8.6-10.6 7266435071) T PROTEIN (test code = 7.8 g/dL 6.3-8.2 2776298708) ALBUMIN (test code = 4.6 g/dL 3.5-5.0 6239000445) ALK PHOS (test code = 63 U/L 34-122 4084935908) ALTv (test code = 23 U/L 5-35 1742-6) AST(SGOT) (test code = 27 U/L 13-40 6979665848) eGFR (test code = 75.1 mL/min/1.73m2 4256831058) WESLEY (test code = WESLEY) Association of [...] tests). Lab Interpretation Abnormal (test code = 81387-8) [facility] 23:57:32 Test Item Value Reference Range Interpretation Comments LIPASE (test code = 3396699652) 55 U/L 0-220 Lab Interpretation (test code = Normal 85223-0) [facility] [id number] 23:47:31 Test Item Value Reference Range Interpretation Comments WBC (test code = 5.64 See_Comment [Automated 1079-2) message] The sy stem which generated this [...] RDW-SD (test code = 42.5 fL 39.0-49.9 88162-3) RDW-CV (test code = 13.0 % 12.0-15.5 788-0) PLT (test code = 339 See_Comment [Automated 777-3) message] The sy stem which generated this result transmitted reference range : 166 - 358 10*3/ ?L. The reference r david was not used to interpret this result as normal/abnormal . MPV (test code = 9.4 fL 9.5-12.9 L 55062-6) NRBC/100 WBC (test 0.0 See_Comment [Automat ed code = 4562563780) message] The system which generated this result transmitted reference range : 0.0 - 10.0 /100 WBCs. The refer ence range was not u sed to interpret th is result as normal/abnormal . NRBC x10^3 (test code See_Comment [Auto mated = 8769063576) message] The s ystem which generated this result transmitted reference range : 10*3/?L. The reference range was not used to interpret this result as normal/abnormal . GRAN MAT (NEUT) % 51.2 % (test code = 770-8) IMM GRAN % (test code 0.20 % = 6219002509) LYMPH % (test code = 36.5 % 736-9) MONO % (test code = 5.7 % 5905-5) EOS % (test code = 5.9 % 713-8) BASO % (test code = 0.5 % 706-2) GRAN MAT x10^3(ANC) 2.89 10*3/uL 1.88-7.09 (test code = 2976476541) IMM GRAN x10^3 (test 0.00-0.06 code = 7753310392) LYMPH x10^3 (test code 2.06 10*3/uL 1.32-3.29 = 731-0) MONO x10^3 (test code 0.32 10*3/uL 0.33-0.92 L = 742-7) EOS x10^3 (test code = 0.33 10*3/uL 0.03-0.39 711-2) BASO x10^3 (test code 0.03 10*3/uL 0.01-0.07 = 704-7) Lab Interpretation Abnormal (test code = 88800-4) [facility] [id number] 16:14:38 Test Item Value Reference Range Interpretation Comments POCT Molecular Strep (test code = Negative Negative 49074-0) Lab Interpretation (test code = Normal 65801-0) [facility]. METABOLIC PANEL ([id number])2022-05-05 19:35:37 Test Item Value Reference Range Interpretation Comments NA (test code = 139 mmol/L 135-145 5490343770) K (test code = 4.4 mmol/L 3.5-5.0 1324829296) CL (test code = 104 mmol/L 98-108 9103872023) CO2 TOTAL (test code = 22 mmol/L 23-31 L 5454194737) AGAP (test code = 2-16 0925755328) BUN (test code = 11 mg/dL 7-23 7452446796) GLUCOSE (test code = 95 mg/dL 70-110 1300980475) CREATININE (test code = 0.71 mg/dL 0.50-1.04 2024230302) TOTAL BILI (test code = 0.4 mg/dL 0.1-1.8 4545354573) CALCIUM (test code = 9.1 mg/dL 8.6-10.6 7271461004) T PROTEIN (test code = 7.9 g/dL 6.3-8.2 3025114152) ALBUMIN (test code = 4.7 g/dL 3.5-5.0 7638197416) ALK PHOS (test code = 114 U/L 34-122 0572646803) ALTv (test code = 21 U/L 5-35 1742-6) AST(SGOT) (test code = 21 U/L 13-40 9459704545) eGFR (test code = mL/min/1.73m2 2821962888) WESLEY (test code = WESLEY) Association of [...] tests). Lab Interpretation Abnormal (test code = 25058-5) [facility] WITH [id number] 19:25:37 Test Item Value Reference Range Interpretation Comments WBC (test code = See_Comment [Automated 7390-2) message] The sy stem which generated this [...] RDW-SD (test code = 41.7 fL 39.0-49.9 88819-9) RDW-CV (test code = 12.7 % 12.0-15.5 788-0) PLT (test code = See_Comment H [Automated 777-3) message] The sy stem which generated this result transmitted reference range : 166 - 358 10*3/ ?L. The reference r david was not used to interpret this result as normal/abnormal . MPV (test code = 8.8 fL 9.5-12.9 L 57716-0) NRBC/100 WBC (test See_Comment [Automat ed code = 7416389773) message] The system which generated this result transmitted reference range : 0.0 - 10.0 /100 WBCs. The refer ence range was not u sed to interpret th is result as normal/abnormal . NRBC x10^3 (test code See_Comment [Auto mated = 2164583426) message] The s ystem which generated this result transmitted reference range : 10*3/?L. The reference range was not used to interpret this result as normal/abnormal . GRAN MAT (NEUT) % 56.1 % (test code = 770-8) IMM GRAN % (test code 0.40 % = 7022683636) LYMPH % (test code = 29.9 % 736-9) MONO % (test code = 5.4 % 5905-5) EOS % (test code = 7.8 % 713-8) BASO % (test code = 0.4 % 706-2) GRAN MAT x10^3(ANC) 3.75 10*3/uL 1.88-7.09 (test code = 1937873590) IMM GRAN x10^3 (test 0.03 10*3/uL 0.00-0.06 code = 2794310599) LYMPH x10^3 (test code 2.00 10*3/uL 1.32-3.29 = 731-0) MONO x10^3 (test code 0.36 10*3/uL 0.33-0.92 = 742-7) EOS x10^3 (test code = 0.52 10*3/uL 0.03-0.39 H 711-2) BASO x10^3 (test code 0.03 10*3/uL 0.01-0.07 = 704-7) Lab Interpretation Abnormal (test code = 80608-4) [facility] [id number] 19:00:00 Test Item Value Reference Range Interpretation Comments POCT PREG (test code = 1605) negative On board controls acceptable with present C Line (test code = 3574) POCT PREG LOT # (test code = 3575) [id number] POCT PREG TEST DATE (test 08-11-2023 code = 3576) Lab Interpretation (test code = Normal 53911-3) [facility] [id number] 15:21:11 Test Item Value Reference Range Interpretation Comments WBC (test code = See_Comment [Automated 9535-2) message] The sy stem which generated this result transmitted reference range : 4.30 - 11.10 10*3/?L. The reference range was not used to interpret this result as normal/abnormal . RBC (test code = See_Comment [Automated 076-7) message] The sy stem which generated this [...] RDW-SD (test code = 42.6 fL 39.0-49.9 49039-4) RDW-CV (test code = 12.9 % 12.0-15.5 788-0) PLT (test code = See_Comment H [Automated 777-3) message] The sy stem which generated this result transmitted reference range : 166 - 358 10*3/ ?L. The reference r david was not used to interpret this result as normal/abnormal . MPV (test code = 9.1 fL 9.5-12.9 L 41375-6) NRBC/100 WBC (test See_Comment [Automat ed code = 8226734076) message] The system which generated this result transmitted reference range : 0.0 - 10.0 /100 WBCs. The refer ence range was not u sed to interpret th is result as normal/abnormal . NRBC x10^3 (test code See_Comment [Auto mated = 2345531098) message] The s ystem which generated this result transmitted reference range : 10*3/?L. The reference range was not used to interpret this result as normal/abnormal . GRAN MAT (NEUT) % 56.8 % (test code = 770-8) IMM GRAN % (test code 0.30 % = 3422126673) LYMPH % (test code = 29.5 % 736-9) MONO % (test code = 4.3 % 5905-5) EOS % (test code = 8.3 % 713-8) BASO % (test code = 0.8 % 706-2) GRAN MAT x10^3(ANC) 3.57 10*3/uL 1.88-7.09 (test code = 1223217568) IMM GRAN x10^3 (test 0.00-0.06 code = 1034072977) LYMPH x10^3 (test code 1.85 10*3/uL 1.32-3.29 = 731-0) MONO x10^3 (test code 0.27 10*3/uL 0.33-0.92 L = 742-7) EOS x10^3 (test code = 0.52 10*3/uL 0.03-0.39 H 711-2) BASO x10^3 (test code 0.05 10*3/uL 0.01-0.07 = 704-7) Lab Interpretation Abnormal (test code = 49777-4) [facility]. METABOLIC PANEL ([id number])2022-04-26 15:12:13 Test Item Value Reference Range Interpretation Comments NA (test code = 141 mmol/L 135-145 7072766082) K (test code = 3.4 mmol/L 3.5-5.0 L 7326141409) CL (test code = 104 mmol/L 98-108 3683103723) CO2 TOTAL (test code = 23 mmol/L 23-31 5189319422) AGAP (test code = 2-16 7529135283) BUN (test code = 9 mg/dL 7-23 0520035416) GLUCOSE (test code = 101 mg/dL 70-110 4736680085) CREATININE (test code = 0.82 mg/dL 0.50-1.04 3390070513) TOTAL BILI (test code = 0.7 mg/dL 0.1-1.9 1098011271) CALCIUM (test code = 9.3 mg/dL 8.6-10.6 8407395797) T PROTEIN (test code = 8.1 g/dL 6.3-8.2 3540923154) ALBUMIN (test code = 4.7 g/dL 3.5-5.0 1583850073) ALK PHOS (test code = 108 U/L 34-122 5695984598) ALTv (test code = 24 U/L 5-35 1742-6) AST(SGOT) (test code = 49 U/L 13-40 H 4914303113) eGFR (test code = mL/min/1.73m2 1098473651) WESLEY (test code = WESLEY) Association of [...] tests). Lab Interpretation Abnormal (test code = 03435-7) [facility] [id number] 14:45:00 Test Item Value Reference Range Interpretation Comments POCT PREG (test code = 1605) negative On board controls acceptable with present C Line (test code = 3574) POCT PREG LOT # (test code = 3575) [id number] POCT PREG TEST DATE (test 08/11/2023 code = 3576) Lab Interpretation (test code = Normal 76265-5) [facility] [id number] 01:22:00 Test Item Value Reference Range Interpretation Comments POCT PREG (test code = 1605) Negative On board controls acceptable with Present C Line (test code = 3574) POCT PREG LOT # (test code = 3575) [id number] POCT PREG TEST DATE (test 08-11-2023 code = 3576) Lab Interpretation (test code = Normal 78607-0) [facility] METABOLIC PANEL (NA, K, CL, CO2, GLUCOSE, BUN, CREATININE, CA)2022-04-07 23:01:10 Test Item Value Reference Range Interpretation Comments NA (test code = 138 mmol/L 135-145 0960996805) K (test code = 4.3 mmol/L 3.5-5.0 1119791557) CL (test code = 107 mmol/L 98-108 3946543635) CO2 TOTAL (test code = 20 mmol/L 23-31 L 5787987719) AGAP (test code = 2-16 9386071970) BUN (test code = 9 mg/dL 7-23 9418702684) GLUCOSE (test code = 204 mg/dL 70-110 H 2214433058) CREATININE (test code = 0.74 mg/dL 0.50-1.04 8520474468) CALCIUM (test code = 9.1 mg/dL 8.6-10.6 5983916602) eGFR (test code = mL/min/1.73m2 6664589666) WESLEY (test code = WESLEY) Association of [...] tests). Lab Interpretation Abnormal (test code = 59439-3) [facility] WITH [id number] 22:57:34 Test Item Value Reference Range Interpretation [...] RDW-SD (test code = 42.9 fL 39.0-49.9 08887-1) RDW-CV (test code = 13.4 % 12.0-15.5 788-0) PLT (test code = See_Comment H [Automated 777-3) message] The sy stem which generated this result transmitted reference range : 166 - 358 10*3/ ?L. The reference r david was not used to interpret this result as normal/abnormal . MPV (test code = 8.9 fL 9.5-12.9 L 98950-2) NRBC/100 WBC (test See_Comment [Automat ed code = [id number]) message] The system which generated this result transmitted reference range : 0.0 - 10.0 /100 WBCs. The refer ence range was not u sed to interpret th is result as normal/abnormal . NRBC x10^3 (test code See_Comment [Auto mated = [id number]) message] The s ystem which generated this result transmitted reference range : 10*3/?L. The reference range was not used to interpret this result as normal/abnormal . GRAN MAT (NEUT) % 88.7 % (test code = 770-8) IMM GRAN % (test code 0.70 % = [id number]) LYMPH % (test code = 9.4 % 736-9) MONO % (test code = 0.9 % 5905-5) EOS % (test code = 0.1 % 713-8) BASO % (test code = 0.2 % 706-2) GRAN MAT x10^3(ANC) 7.81 10*3/uL 1.88-7.09 H (test code = [id number]) IMM GRAN x10^3 (test 0.06 10*3/uL 0.00-0.06 code = [id number]) LYMPH x10^3 (test code 0.83 10*3/uL 1.32-3.29 L = 731-0) MONO x10^3 (test code 0.08 10*3/uL 0.33-0.92 L = 742-7) EOS x10^3 (test code = 0.03-0.39 L 711-2) BASO x10^3 (test code 0.01-0.07 = 704-7) Lab Interpretation Abnormal (test code = 40014-6) [facility] [id number] 14:07:00 Test Item Value Reference Range Interpretation Comments POCT PREG (test code = 1605) negative On board controls acceptable with present C Line (test code = 3574) POCT PREG LOT # (test code = 3575) [id number] POCT PREG TEST DATE (test 08/11/2023 code = 3576) Lab Interpretation (test code = Normal 94375-0) [facility] [id number] 13:52:00 Test Item Value Reference Range Interpretation Comments POCT PREG (test code = 1605) negative On board controls acceptable with C present Line (test code = 3574) Lab Interpretation (test code = Normal 36114-4) [facility] [id number] 14:59:00 Test Item Value Reference Range Interpretation Comments POCT PREG (test code = 1605) negative On board controls acceptable with yes C Line (test code = 3574) POCT PREG LOT # (test code = 3575) [id number] POCT PREG TEST DATE (test 07/11/2023 code = 3576) Lab Interpretation (test code = Normal 38987-4) [facility] METABOLIC PANEL (12371)2022 17:51:43 Test Item Value Reference Range Interpretation Comments NA (test code = 139 mmol/L 135-145 5646431216) K (test code = 4.1 mmol/L 3.5-5 7744227552) CL (test code = 104 mmol/L 98-108 6045605909) CO2 TOTAL (test code = 22 mmol/L 23-31 L 5863026574) AGAP (test code = 2-16 9501081469) BUN (test code = 7 mg/dL 7-23 9457054561) GLUCOSE (test code = 114 mg/dL 70-110 H 7809335717) CREATININE (test code = 0.69 mg/dL 0.5-1.04 3615434403) TOTAL BILI (test code = 0.4 mg/dL 0.1-1.4 2563455206) CALCIUM (test code = 9.7 mg/dL 8.6-10.6 3336596984) T PROTEIN (test code = 7.2 g/dL 6.3-8.2 4430831337) ALBUMIN (test code = 4.6 g/dL 3.5-5 7094480680) ALK PHOS (test code = 65 U/L 34-122 9205578357) ALTv (test code = 15 U/L 5-35 1742-6) AST(SGOT) (test code = 19 U/L 13-40 2058886985) eGFR (test code = mL/min/1.73m2 5278153106) WESLEY (test code = WESLEY) Association of [...] tests). Lab Interpretation Abnormal (test code = 20907-5) [facility] WITH [id number] 17:40:24 Test Item Value Reference Range Interpretation Comments WBC (test code = See_Comment [Automated 7277-2) message] The sy stem which generated this result transmitted reference range : 4.30 - 11.10 10*3/?L. The reference range was not used to interpret this result as normal/abnormal . RBC (test code = See_Comment [Automated 113-8) message] The sy stem which generated this [...] RDW-SD (test code = 43.1 fL 39-49.9 57169-8) RDW-CV (test code = 13.2 % 12-15.5 788-0) PLT (test code = See_Comment [Automated 777-3) message] The sy stem which generated this result transmitted reference range : 166 - 358 10*3/ ?L. The reference r david was not used to interpret this result as normal/abnormal . MPV (test code = 9.5 fL 9.5-12.9 22809-8) NRBC/100 WBC (test See_Comment [Automat ed code = 4892055629) message] The system which generated this result transmitted reference range : 0.0 - 10.0 /100 WBCs. The refer ence range was not u sed to interpret th is result as normal/abnormal . NRBC x10^3 (test code See_Comment [Auto mated = 9829406453) message] The s ystem which generated this result transmitted reference range : 10*3/?L. The reference range was not used to interpret this result as normal/abnormal . GRAN MAT (NEUT) % 57.8 % (test code = 770-8) IMM GRAN % (test code 0.20 % = 8528959426) LYMPH % (test code = 30.8 % 736-9) MONO % (test code = 5.1 % 5905-5) EOS % (test code = 5.6 % 713-8) BASO % (test code = 0.5 % 706-2) GRAN MAT x10^3(ANC) 3.61 10*3/uL 1.88-7.09 (test code = 5557323427) IMM GRAN x10^3 (test 0-0.06 code = 4496294986) LYMPH x10^3 (test code 1.92 10*3/uL 1.32-3.29 = 731-0) MONO x10^3 (test code 0.32 10*3/uL 0.33-0.92 L = 742-7) EOS x10^3 (test code = 0.35 10*3/uL 0.03-0.39 711-2) BASO x10^3 (test code 0.03 10*3/uL 0.01-0.07 = 704-7) Lab Interpretation Abnormal (test code = 00325-3) [facility] [id number] 17:27:00 Test Item Value Reference Range Interpretation Comments POCT PREG (test code = 1605) negative On board controls acceptable with present C Line (test code = 3574) POCT PREG LOT # (test code = 3575) [id number] POCT PREG TEST DATE (test code = 3576) Lab Interpretation (test code = Normal 85033-0) [facility]45[facility] Test Item Value Reference Range Interpretation Comments LIPASE (test code = 9134577611) 41 U/L 0-220 Lab Interpretation (test code = Normal 70777-5) [facility] [id number] 10:57:00 Test Item Value Reference Range Interpretation Comments POCT PREG (test code = 1605) Negative On board controls acceptable with Present C Line (test code = 3574) POCT PREG LOT # (test code = 3575) [id number] POCT PREG TEST DATE (test 03/12/2023 code = 3576) Lab Interpretation (test code = Normal 96207-0) [facility] (NA, K, CL, CO2, GLUCOSE, BUN, CREATININE, CA)2022-01-18 10:56:51 Test Item Value Reference Range Interpretation Comments NA (test code = 137 mmol/L 135-145 3857452753) K (test code = 4.6 mmol/L 3.5-5 Slight 0844666349) hemolysis CL (test code = 108 mmol/L 98-108 2448295819) CO2 TOTAL (test code 22 mmol/L 23-31 L = 4341552347) AGAP (test code = 2-16 4877592986) BUN (test code = 11 mg/dL 7-23 Slight 3897432381) hemolysis GLUCOSE (test code = 83 mg/dL 70-110 5013986216) CREATININE (test code 0.68 mg/dL 0.5-1.04 = 8929842530) CALCIUM (test code = 8.8 mg/dL 8.6-10.6 0408021650) eGFR (test code = mL/min/1.73m2 2196737235) WESLEY (test code = WESLEY) Association of [...] tests). Lab Interpretation Abnormal (test code = 01711-4) [facility]87122[facility] (ALB,T.PRO,BILI T,BU/BC,ALT,AST,ALK PHOS)2022-01-18 10:56:51 Test Item Value Reference Range Interpretation Comments TOTAL BILI (test code = 8599789041) 0.6 mg/dL 0.1-1.1 BILI UNCON (test code = 1613259312) 0.1 mg/dL 0.1-1.1 BILI CONJ (test code = 6588692824) 0.0 mg/dL 0-0.3 T PROTEIN (test code = 5065103562) 8.6 g/dL 6.3-8.2 H ALBUMIN (test code = 3948931868) 5.1 g/dL 3.5-5 H ALK PHOS (test code = 7570189635) 79 U/L 34-122 ALTv (test code = 1742-6) 117 U/L 5-35 H AST(SGOT) (test code = 5891586328) 163 U/L 13-40 H Lab Interpretation (test code = Abnormal 30421-3) [facility], [id number] 10:54:25 Test Item Value Reference Range Interpretation Comments PREG SERUM (test code Negative = 3137351869) WESLEY (test code = WESLEY) Less than 10 IU/L. ?If low titer or ectopic is suspected, resubmit specimen in 48-72 hours. [facility] WITH [id number] 10:40:49 Test Item Value Reference Range Interpretation Comments WBC (test code = See_Comment [Automated 8133-2) message] The sy stem which generated this result transmitted reference range : 4.30 - 11.10 10*3/?L. The reference range was not used to interpret this result as normal/abnormal . RBC (test code = See_Comment [Automated 911-8) message] The sy stem which generated this [...] RDW-SD (test code = 45.3 fL 39-49.9 06295-7) RDW-CV (test code = 14.5 % 12-15.5 788-0) PLT (test code = See_Comment [Automated 817-3) message] The sy stem which generated this result transmitted reference range : 166 - 358 10*3/ ?L. The reference r david was not used to interpret this result as normal/abnormal . MPV (test code = 9.5 fL 9.5-12.9 16988-2) NRBC/100 WBC (test See_Comment [Automat ed code = 8519295577) message] The system which generated this result transmitted reference range : 0.0 - 10.0 /100 WBCs. The refer ence range was not u sed to interpret th is result as normal/abnormal . NRBC x10^3 (test code See_Comment [Auto mated = 4283295996) message] The s ystem which generated this result transmitted reference range : 10*3/?L. The reference range was not used to interpret this result as normal/abnormal . GRAN MAT (NEUT) % 47.6 % (test code = 770-8) IMM GRAN % (test code 0.60 % = 8007858291) LYMPH % (test code = 39.9 % 736-9) MONO % (test code = 5.9 % 5905-5) EOS % (test code = 5.3 % 713-8) BASO % (test code = 0.7 % 706-2) GRAN MAT x10^3(ANC) 4.45 10*3/uL 1.88-7.09 (test code = 4584231389) IMM GRAN x10^3 (test 0.06 10*3/uL 0-0.06 code = 2831168589) LYMPH x10^3 (test code 3.74 10*3/uL 1.32-3.29 H = 731-0) MONO x10^3 (test code 0.55 10*3/uL 0.33-0.92 = 742-7) EOS x10^3 (test code = 0.50 10*3/uL 0.03-0.39 H 711-2) BASO x10^3 (test code 0.07 10*3/uL 0.01-0.07 = 704-7) Lab Interpretation Abnormal (test code = 38656-1) [facility] [id number] 18:31:00 Test Item Value Reference Range Interpretation Comments POCT PREG (test code = 1605) Negative On board controls acceptable with C Yes Line (test code = 3574) POCT PREG LOT # (test code = 3575) POCT PREG TEST DATE (test code = 3576) [facility]/O SPECIFIC [id number] 18:31:00 Test Item Value Reference Range Interpretation [...] code = 3257) Trace Negative - Negative [facility] Consult Notes Date/Time Note Provider Source 2023-01-12 00:12:43 [id number]:12:43Associated Order(s): [facility] CONSULT GENERAL SURGERY TRAUMA/ACS Surgery Consult NoteAttending: [...] symptomatic cholelithiasis 1.5 months ago at OSH ([place]). Pt states that she has had persistent RUQ pain with nausea and po intolerance along with intermittent chills and vomiting since surgery. Was seen by PCP and instructed to come to [facility] ED for further evaluation. Review of Systems:(BOLDED [...] N/A 07/21/2019 Surgeon: Prasanna Vargas MD; Location: [facility] Labor and Delivery OR Location TUBAL LIGATION N/A 07/21/2019 Surgeon: Prasanna Vargas MD; Location: [facility] Labor [...] skin once every month. 1 mL 3 Xeflamsxyf-Cbwbrrcorqpnr-Mgvz (FIORICET) 50-300-40 mg per capsule Take 1 [...] symptomatic cholelithiasis 1.5 months ago at OSH ([place]).Plan:Admission to [facility] serviceConsult IR for percutaneous drainage of gallbladder [...] pain, nausea, anorexia since lap pasquale at [facility] on 12/01/22 with noted venous bleeding from [...] Surgery, and Surgical Critical Care In-house Pager: [phone] [id number], Amy1.2.840.572411.1.13.104.2.7.2.180910Yzi nwxHyrSI5729-24-78U78:39:26Consult noteTXT1.2.840.598068.1.13.104.2.7.2.87972 9|[id number] for patient nute84984-5Rojxkqt noteLNUT[address] Hp[id number] JVAUREWCKCMMRRPS5149-53-93P84:39:261.2.840 .628847.1.72.3.15|1.2.840.606965.1.13.104. 2.7.2.727879_1889654271 History and Physical Notes Date/Time Note Provider Source 2023-01-12 01:05:04 [id number]:05:04Formatting of this note [facility] might be different from the original.01/12/23 1:05 AM Please refer to consult note written by Rodolfo Riggins DO on 01/12/23 for complete H&P.NITESH Gandara-2 Surgery Resident ssociated attestation - Mirella Vergara MD - 01/12/2023 1:47 AM CDT Ejwbd91737-0Ghitqho and physical [id number], Amy1.2.840.528612.1.13.104.2.7.2.253259Jud kdwSlgJB6152-97-51N26:47:52History and physical noteTXT1.2.840.883985.1.13.104.2.7.2.34720 9|[id number] for patient zgmz89072-5Ssskemc and physical noteLNUT[address] YmpgPcrrznruvKfmtferopAZRL8820584789HEYYLI CYPWSHPAKTSEWGBW3999-34-50Y15:47:521.2.840 .684756.1.72.3.15|1.2.840.883967.1.13.104. 2.7.2.727879_1889658330
[2023-03-24] MEDS ORDERED: MORPHINE 2 MG/ML SYR ONE (10:21)
[2023-03-24] MEDS ORDERED: NA CHLORIDE 0.9% 1,000 ML ONE (10:22)
[2023-03-24] MEDS ORDERED: ONDANSETRON 4 MG/2 ML VIAL ONE (10:22)
[2023-03-24 10:36] LABS: Specific Gravity 1.007 (1.005-1.030)
--- NOTE | 2023-03-24 10:36 | RAD REPORT ---
EXAM DESCRIPTION: CT - Abdomen Pelvis Wo Contrast - 03/24/2023 10:24 am CLINICAL HISTORY: Abdominal pain COMPARISON: February 2023 TECHNIQUE: Computed axial tomography of the abdomen and pelvis was obtained. IV and oral contrast we re not requested. All CT scans are performed using dose optimization technique as appropriate and may include automated exposure control or mA/KV adjustment according to patient size. FINDINGS: The evaluation of solid organs, vessels and bowel is limited secondary to the lack of con trast administration. 3 millimeter calculus right kidney. No hydronephrosis. A ureteral calculus is not seen. The liver, spleen, pancreas, adrenals and left kidney appear grossly normal. Cholecystectomy The appendix is normal. There is no evidence of diverticulitis. No adnexal mass A small umbilical hernia IMPRESSION: 3 millimeter nonobstructing right renal calculus
[2023-03-24 10:37] LABS: Specific Gravity 1.007 (1.005-1.030); Urine Bacteria <20 /HPF (<20); Urine Bilirubin NEGATIVE (Negative); Urine Blood 3+ (OVER) (Negative); Urine Clarity Extremely Turbid (Clear); Urine Color Colorless (Yellow); Urine Glucose NEGATIVE (Negative); Urine Mucus Slight /HPF (None Seen); Urine Protein NEGATIVE (Negative); Urine RBC <5 /HPF (None Seen); Urine Urobilinogen Normal (Normal)
[2023-03-24 10:38] LABS: Absolute Lymphocytes (CBC) 2.1 K/uL (0.7-4.9); Hematocrit 41.1 % (36.0-45.0); Lymphocytes % 26.7 % (15.3-44.8); MCV 86.1 fL (80-100); MPV 7.4 fL (7.6-11.3); Platelets 336 thou/uL (152-406); RBC Red Blood Cell Count 4.78 M/uL (3.86-4.86)
[2023-03-24 10:53] LABS: Albumin 3.9 g/dL (3.4-5.0); Bilirubin Total 0.3 mg/dL (0.2-1.0); Protein, Total 7.7 g/dL (6.4-8.2)
[2023-03-24] MEDS ORDERED: MORPHINE 4 MG/ML SYR ONE (11:46)
--- NOTE | 2023-03-24 12:34 | ER ---
Nurse's Notes [facility] Name: Natanael Dyson Age: 28 yrs Sex: Female : 1995 Arrival Date: 03/24/2023 Time: 09:47 Bed 5 Private MD: Diagnosis: UTI/ Urinary tract infection, site not specified Presentation: 03/24 09:58 Chief complaint: Patient states: R flank pain with N/V for 4 days. Urinary frequency ll1 reported. Coronavirus screen: Client denies travel out of the [place] in the last 14 days. At this time, the client does not indicate any symptoms associated with coronavirus-19. Ebola Screen: Patient denies travel to an Ebola-affected area in the 21 days before illness onset. Initial Sepsis Screen: Does the patient meet any 2 criteria? No. Patient's initial sepsis screen is negative. Does the patient have a suspected source of infection? Yes: Dysuria/Frequency/Urgency/UTI. Risk Assessment: Do you want to hurt yourself or someone else? Patient reports no desire to harm self or others. Onset of symptoms was March 21, 2023. 09:58 Method Of Arrival: Ambulatory ll1 09:58 Acuity: THIERNO 3 ll1 Triage Assessment: 09:59 General: Appears uncomfortable, ill, Behavior is cooperative, appropriate for age, ll1 restless. Pain: Complains of pain in R flank Pain currently is 10 out of 10 on a pain scale. GI: Reports lower abdominal pain, nausea, vomiting. : Reports urinary frequency. Historical: - Allergies: 09:59 Compazine; ll1 09:59 Haldol; ll1 09:59 Reglan; ll1 09:59 Toradol; ll1 - PMHx: 09:59 Anxiety; depressive disorder; Kidney stone; ll1 - PSHx: 09:59 Cholecystectomy; Ligation of fallopian tube; ll1 - Immunization history:: Adult Immunizations up to date. - Social history:: Smoking status: Patient denies any tobacco usage or history of. Screenin:23 [facility] ED Fall Risk Assessment (Adult) History of falling in the last 3 months, ph including since admission No falls in past 3 months (0 pts) Score/Fall Risk Level 0 - 2 = Low Risk Oriented to surroundings, Maintained a safe environment, Provided non-skid footwear, Hourly rounding (assess needs \T\ fall precautionary measures) done. Abuse screen: Denies threats or abuse. Denies injuries from another. Nutritional screening: No deficits noted. Tuberculosis screening: No symptoms or risk factors identified. Assessment: 10:23 General: Appears in no apparent distress. uncomfortable, Behavior is calm, cooperative, ph appropriate for age. Pain: Complains of pain in right mid back and right low back. Neuro: Level of Consciousness is awake, alert, obeys commands, Oriented to person, place, time, situation. Cardiovascular: Capillary refill < 3 seconds in bilateral fingers Patient's skin is warm and dry. Respiratory: Airway is patent Respiratory effort is even, unlabored. GI: Abdomen is non-distended, obese, Reports nausea, vomiting. Derm: Skin is pink, warm \T\ dry. Vital Signs: 09:58 BP 118 / 94; Pulse 125; Resp 18; Temp 98.1; Pulse Ox 100% ; Weight 61.23 kg; Height 5 ll1 ft. 4 in. ; Pain 10/10; 10:40 BP 134 / 90; Pulse 105; Resp 18; Pulse Ox 100% on R/A; ph 11:39 BP 123 / 93; Pulse 94; Resp 18; Pulse Ox 100% on R/A; ph 12:50 BP 123 / 96; Pulse 90; Resp 18; Temp 97.8; Pulse Ox 99% on R/A; ph 09:58 Body Mass Index 23.17 (61.23 kg, 162.56 cm) ll1 09:58 Pain Scale: Adult ll1 ED Course: 09:50 Patient arrived in ED. mg5 09:50 Diaz Arizmendi MD is Attending Physician. ec2 09:58 Viktoriya Jaramillo, ROSEY is Primary Nurse. ph 09:58 Arm band placed on Patient placed in an exam room, on a stretcher. ll1 09:59 Triage completed. ll1 10:22 Test, Urine Sent. ph 10:22 UAM Sent. ph 10:22 CMP Sent. ph 10:22 CBC with Diff Sent. ph 10:22 Initial lab(s) drawn, by me, sent to lab. Missed attempt(s): 22 gauge in right ph antecubital area. Bleeding controlled, band aid applied, catheter tip intact. Inserted saline lock: 22 gauge in left antecubital area, using aseptic technique. Blood collected. 10:23 Patient has correct armband on for positive identification. Bed in low position. Call ph light in reach. Side rails up X 1. Pulse ox on. NIBP on. Door closed. Noise minimized. 10:25 CT Abd/Pelvis - Without Contrast In Process Unspecified. EDMS 11:57 No provider procedures requiring assistance completed. ph 12:50 IV discontinued, intact, bleeding controlled, No redness/swelling at site. Pressure ph dressing applied. Administered Medications: 10:22 Drug: NS 0.9% IV 1000 ml IV at 1 bolus Per protocol; 1000 mL bolus Route: IV; Rate: 1 ph bolus; Site: left antecubital; 11:56 Follow up: Response: No adverse reaction; IV Status: Completed infusion; IV Intake: ph 1000ml 10:22 Drug: Ondansetron IVP 4 mg IVP once; over 2 minutes Route: IVP; Site: left antecubital; ph 11:56 Follow up: Response: No adverse reaction ph 10:22 Drug: morphine IVP or IV 2 mg IVP once over 4 mins Route: IVP; Infused Over: 4 mins; ph Site: left antecubital; 11:56 Follow up: Response: No adverse reaction ph 11:39 Drug: morphine IVP or IV 4 mg IVP once over 4 mins Route: IVP; Infused Over: 4 mins; ph Site: left antecubital; 11:56 Follow up: Response: No adverse reaction ph 11:56 Not Given (Patient Refused): adbbdwmvkizen2602 mg PO once ph Medication: 10:23 VIS not applicable for this client. ph Intake: 11:56 IV: 1000ml; Total: 1000ml. ph Outcome: 12:33 Discharge ordered by . ec2 12:50 Discharged to home ambulatory, ph 12:50 Condition: good 12:50 Discharge instructions given to patient, Instructed on discharge instructions, follow up and referral plans. medication usage, Demonstrated understanding of instructions, follow-up care, medications, Prescriptions given X 1, 12:51 Patient left the ED. ph Signatures: Dispatcher [employer] EDViktoriya Cowan RN RN ph Lewis, Lynsay, RN RN ll1 Lashanda Fitch mg5 Diaz Arizmendi MD MD ec2
--- NOTE | 2023-03-24 12:34 | EDPHYS ---
Physician Documentation [facility] Name: Natanael Dyson Age: 28 yrs Sex: Female : 1995 Arrival Date: 03/24/2023 Time: 09:47 Bed 5 Private MD: ED Physician Diaz Arizmendi HPI: 03/24 09:58 This 28 yrs old Female presents to ER via Unassigned with complaints of R ec2 sided flank pain. 09:58 Patient arrives today for evaluation of right-sided flank pain. States that she has ec2 been having symptoms for approximately 4 days. States that the pain is right-sided and radiates to the lower abdomen. Patient reports some associated nausea without vomiting, no diarrhea symptoms. States that she does have some burning with urination. States that she has a history of kidney infection as well as kidney stones.. Historical: - Allergies: 09:59 Compazine; ll1 09:59 Haldol; ll1 09:59 Reglan; ll1 09:59 Toradol; ll1 - PMHx: 09:59 Anxiety; depressive disorder; Kidney stone; ll1 - PSHx: 09:59 Cholecystectomy; Ligation of fallopian tube; ll1 - Immunization history:: Adult Immunizations up to date. - Social history:: Smoking status: Patient denies any tobacco usage or history of. ROS: 09:58 Constitutional: as per hpi ec2 Exam: 09:58 Constitutional: GEN: NAD Head: atraumatic Eyes: EOMI Ears: External ears are ec2 normal. CV: regular rate LUNGS: no respiratory distress ABD: non-distended, soft, tender in the right side of the abdomen, right CVA TTP SKIN: no evidence of rashes MSK: no evidence of trauma NEURO: moves all extremities equally Vital Signs: 09:58 BP 118 / 94; Pulse 125; Resp 18; Temp 98.1; Pulse Ox 100% ; Weight 61.23 kg; Height 5 ll1 ft. 4 in. ; Pain 10/10; 10:40 BP 134 / 90; Pulse 105; Resp 18; Pulse Ox 100% on R/A; ph 11:39 BP 123 / 93; Pulse 94; Resp 18; Pulse Ox 100% on R/A; ph 12:50 BP 123 / 96; Pulse 90; Resp 18; Temp 97.8; Pulse Ox 99% on R/A; ph 09:58 Body Mass Index 23.17 (61.23 kg, 162.56 cm) ll1 09:58 Pain Scale: Adult ll1 MDM: 09:50 Patient medically screened. ec2 09:58 ED course: Patient arrives today for evaluation of right abdominal pain and right flank ec2 pain. Examination remarkable for abdominal findings as noted above. Also with some tachycardia. Will obtain lab work, urine studies, CT abdomen pelvis. Currently considering pyelonephritis, ureteral stone, UTI. Low suspicion for appendicitis. We will treat the patient pain with morphine as well as antiemetic and crystalloid.. 10:46 ED course: Patient without leukocytosis. Urine is pertinent for blood and leuk ec2 esterase, negative testing. CT abdomen pelvis shows nonobstructing renal stone. Given the urinary complaints as well as leuk esterase, will start the patient on antibiotics for UTI. . 11:27 Data reviewed: vital signs. ED course: Metabolic profile is nonactionable.. ec2 12:33 ED course: On reassessment patient is nontoxic-appearing will discharge home, return ec2 precautions given.. 1112 09:58 Order name: CBC with Diff; Complete Time: 10:46 ec2 03/24 09:58 Order name: CMP; Complete Time: 11:27 ec2 03/24 09:58 Order name: UAM; Complete Time: 10:46 ec2 12 09:58 Order name: Test, Urine; Complete Time: 10:46 ec2 12 09:58 Order name: CT Abd/Pelvis - Without Contrast; Complete Time: 10:46 ec2 Administered Medications: 10:22 Drug: NS 0.9% IV 1000 ml IV at 1 bolus Per protocol; 1000 mL bolus Route: IV; Rate: 1 ph bolus; Site: left antecubital; 11:56 Follow up: Response: No adverse reaction; IV Status: Completed infusion; IV Intake: ph 1000ml 10:22 Drug: Ondansetron IVP 4 mg IVP once; over 2 minutes Route: IVP; Site: left antecubital; ph 11:56 Follow up: Response: No adverse reaction ph 10:22 Drug: morphine IVP or IV 2 mg IVP once over 4 mins Route: IVP; Infused Over: 4 mins; ph Site: left antecubital; 11:56 Follow up: Response: No adverse reaction ph 11:39 Drug: morphine IVP or IV 4 mg IVP once over 4 mins Route: IVP; Infused Over: 4 mins; ph Site: left antecubital; 11:56 Follow up: Response: No adverse reaction ph 11:56 Not Given (Patient Refused): dmbzaklwdjckh2533 mg PO once ph Disposition Summary: 03/24/23 12:33 Discharge Ordered Notes: Location: Home ec2 Condition: Stable ec2 Diagnosis - UTI/ Urinary tract infection, site not specified ec2 Discharge Instructions: - Discharge Summary Sheet ec2 - Urinary Tract Infection, Adult ec2 Forms: - Medication Reconciliation Form ec2 - Thank You Letter ec2 - Antibiotic Education ec2 - Prescription Opioid Use ec2 - Patient Portal Instructions ec2 - Leadership Thank You Letter ec2 Prescriptions: - Cephalexin 500 mg Oral capsule - take 1 capsule ORAL route every 12 hours for 5 days; 10 capsule; Refills: 0, ec2 Product Selection Permitted Signatures: Dispatcher [employer] Viktoriya Simpson RN RN Brandi Cotter RN RN [facility] Diaz Arizmendi MD MD ec2
[2023-03-24 13:16] VITALS: BP 123/96; TEMP 97.8; O2SAT 99
== END 2023-03-24 12:51 | disposition home or self-care (01) ==
LOC: ER 09:47
DX: N39.0 Urinary tract infection, site not specified (principal); Z88.1 Allergy status to other antibiotic agents; Z88.5 Allergy status to narcotic agent; Z88.8 Allergy status to other drugs, medicaments and biological substances; Z87.442 Personal history of urinary calculi
CPT/HCPCS: 36415; 74176; 80053; 81001; 81025; 85025; 96361; 96374; 96375; 99284; J2270; J2405; J7030

== ENCOUNTER 2023-03-27 07:41 | Observation (INO) | payer OTHER, SELFPAY ==
--- OUTSIDE RECORDS SUMMARY | 2023-03-27 08:02 | XMS REPORT | Continuity of Care Document ---
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 Branch at bedtime. ondansetron 2023-0 Yes [id number] 4mg Take 1 [facility] 4 mg 3-21 tablet by ity of disintegrat 00:00: mouth [place] ing tablet 00 every 8 Medica l (eight) Branch hours as needed for Nausea and Vomiting (N/V). sucralfate 2023-0 Yes [id number] 1g Take 1 [facility] nivers 1 gram 3-21 tablet by ity of tablet 00:00: mouth [place] 00 before Medical meals and Branch at bedtime. ondansetron 2023-0 Yes [id number] 4mg Take 1 [facility] 4 mg 3-21 tablet by ity of disintegrat 00:00: mouth [place] ing tablet 00 every 8 Medica l (eight) Branch hours as needed for Nausea and Vomiting (N/V). sucralfate 2023-0 Yes [id number] 1g Take 1 [facility] n[facility] 1 gram 3-21 tablet by ity of tablet 00:00: mouth [place] 00 before Medical meals and Branch at bedtime. ondansetron 2023-0 Yes [id number] 4mg Take 1 [facility] 4 mg 3-21 tablet by ity of disintegrat 00:00: mouth [place] ing tablet 00 every 8 Medica l (eight) Branch hours as needed for Nausea and Vomiting (N/V). sucralfate 2023-0 Yes [id number] 1g Take 1 [facility] n[facility] 1 gram 3-21 tablet by ity of tablet 00:00: mouth [place] 00 before Medical meals and Branch at bedtime. ondansetron 2023-0 Yes [id number] 4mg Take 1 [facility] 4 mg 3-21 tablet by ity of disintegrat 00:00: mouth [place] ing tablet 00 every 8 Medica l (eight) Branch hours as needed for Nausea and Vomiting (N/V). sucralfate 2023-0 Yes [id number] 1g Take 1 [facility] nivers 1 gram 3-21 tablet by ity of tablet 00:00: mouth [place] 00 before Medical meals and Branch at bedtime. ondansetron 2023-0 Yes [id number] 4mg Take 1 [facility] 4 mg 3-21 tablet by ity of disintegrat 00:00: mouth [place] ing tablet 00 every 8 Medica l (eight) Branch hours as needed for Nausea and Vomiting (N/V). sucralfate 2023-0 Yes [id number] 1g Take 1 [facility] nivers 1 gram 3-21 tablet by ity of tablet 00:00: mouth [place] 00 before Medical meals and Branch at bedtime. ondansetron 2023-0 Yes [id number] 4mg Take 1 [facility] 4 mg 3-21 tablet by ity of disintegrat 00:00: mouth [place] ing tablet 00 every 8 Medica l (eight) Branch hours as needed for Nausea and Vomiting (N/V). sucralfate 2023-0 Yes [id number] 1g Take 1 [facility] n[facility] 1 gram 3-21 tablet by ity of tablet 00:00: mouth [place] 00 before Medical meals and Branch at bedtime. ondansetron 2023-0 Yes [id number] 4mg Take 1 [facility] 4 mg 3-21 tablet by ity of disintegrat 00:00: mouth [place] ing tablet 00 every 8 Medica l (eight) Branch hours as needed for Nausea and Vomiting (N/V). sucralfate 2023-0 Yes [id number] 1g Take 1 [facility] 1 gram 3-21 tablet by ity of tablet 00:00: mouth [place] 00 before Medical meals and Branch at bedtime. pantoprazol 2023-0 2023- No [id number] 40mg Take 1 [facility] e 40 mg EC 3-21 04-05 tablet by ity of tablet 00:00: 04:59 mouth in [place] 00 :00 the Medical morning Branch for 14 days. pantoprazol 2023-0 2023- No [id number] 40mg Take 1 [facility] e 40 mg EC 3-21 04-05 tablet by ity of tablet 00:00: 04:59 mouth in [place] 00 :00 the Medical morning Branch for [...] tablet by ity o f 00:00: mouth. [place] [facility] traMADoL 50 3-0 Yes 50mg Take 1 [facility] ers mg tablet 3-13 tablet by ity o f 00:00: mouth. [place] [facility] traMADoL 50 3-0 Yes 50mg Take 1 [facility] ers mg tablet 3-13 tablet by ity o f 00:00: mouth. [place] [facility] traMADoL 50 3-0 Yes 50mg Take 1 [facility] ers mg tablet 3-13 tablet by ity o f 00:00: mouth. [place] [facility] traMADoL 50 3-0 Yes 50mg Take 1 [facility] ers mg tablet 3-13 tablet by ity o f 00:00: mouth. [place] [facility] traMADoL 50 3-0 Yes 50mg Take 1 [facility] ers mg tablet 3-13 tablet by ity o f 00:00: mouth. [place] [facility] traMADoL 50 3-0 Yes 50mg Take 1 [facility] ers mg tablet 3-13 tablet by ity o f 00:00: mouth. [place] [facility] traMADoL 50 2023-0 Yes 50mg Take 1 [facility] ers mg tablet 3-13 tablet by ity o f 00:00: mouth. [place] [facility] traMADoL 50 2023-0 Yes 50mg Take 1 [facility] ers mg tablet 3-13 tablet by ity o f 00:00: mouth. [place] [facility] traMADoL 50 2023-0 Yes 50mg [...] 00:00: mouth. Medical Branch ibuprofen 3-0 Yes [id number] 600mg Take 1 [facility] 600 mg 3-05 [id number] tablet by ity of tablet 00:00: mouth [place] 00 every 6 Medical (six) Branch hours as needed for Pain (scale 4-6). ibuprofen 2022-0 Yes [id number] 600mg Take 1 [facility] 600 mg 3-05 [id number] tablet by ity of tablet 00:00: mouth [place] 00 every 6 Medical (six) Branch hours as needed for Pain (scale 4-6). ibuprofen 3-0 Yes [id number] 600mg Take 1 [facility] 600 mg 3-05 [id number] tablet by ity of tablet 00:00: mouth [place] 00 every 6 Medical (six) Branch hours as needed for Pain (scale 4-6). ibuprofen 3-0 2023- No [id number] 600mg Take 1 [facility] 600 mg 3-05 03-21 [id number] tablet by ity o f tablet 00:00: 00:00 mouth [place] 00 :00 every 6 Medical (six) Branch hours as needed for Pain (scale 4-6). citalopram 2022-0 Yes 10mg Take 1 [facility] rs 10 mg 2-17 tablet by ity of tablet 00:00: mouth in [place] 00 the Medical morning. Branch QUEtiapine 2023-0 Yes [facility] 400 mg 2-17 ity of tablet 00:00: [place] 00 Medical Branch gabapentin 2023-0 Yes [facility] 600 mg 2-17 ity of tablet 00:00: [place] 00 Medical Branch citalopram 2023-0 Yes 10mg Take 1 [facility] rs 10 mg 2-17 tablet by ity of tablet 00:00: mouth in [place] the Medical morning. Branch QUEtiapine 2023-0 Yes [facility] 400 mg 2-17 ity of tablet 00:00: [place] 00 Medical Branch gabapentin 2023-0 Yes [facility] 600 mg 2-17 ity of tablet 00:00: [place] 00 Medical Branch citalopram 2023-0 Yes 10mg Take 1 [facility] rs 10 mg 2-17 tablet by ity of tablet 00:00: mouth in [place] the Medical morning. Branch QUEtiapine 2023-0 Yes [facility] 400 mg 2-17 ity of tablet 00:00: [place] 00 Medical Branch gabapentin 2023-0 Yes [facility] 600 mg 2-17 ity of tablet 00:00: [place] 00 Medical Branch citalopram 2023-0 Yes 10mg Take 1 [facility] rs 10 mg 2-17 tablet by ity of tablet 00:00: mouth in [place] the Medical morning. Branch QUEtiapine 2023-0 Yes [facility] 400 mg 2-17 ity of tablet 00:00: [place] 00 Medical Branch gabapentin 2023-0 Yes [facility] 600 mg 2-17 ity of tablet 00:00: [place] [address] Medical Branch citalopram 2023-0 Yes 10mg Take 1 [facility] rs 10 mg 2-17 tablet by ity of tablet 00:00: mouth in [place] the Medical morning. Branch QUEtiapine 2023-0 Yes [facility] 400 mg 2-17 ity of tablet 00:00: [place] 00 Medical Branch gabapentin 2023-0 Yes [facility] 600 mg 2-17 ity of tablet 00:00: [place] 00 Medical Branch citalopram 2023-0 Yes 10mg Take 1 [facility] rs 10 mg 2-17 tablet by ity of tablet 00:00: mouth in [place] the Medical morning. Branch QUEtiapine 2023-0 Yes [facility] 400 mg 2-17 ity of tablet 00:00: [place] 00 Medical Branch gabapentin 2023-0 Yes [facility] 600 mg 2-17 ity of tablet 00:00: [place] 00 Medical Branch citalopram 2023-0 Yes 10mg Take 1 [facility] rs 10 mg 2-17 tablet by ity of tablet 00:00: mouth in [place] the Medical morning. Branch QUEtiapine 2023-0 Yes [facility] 400 mg 2-17 ity of tablet 00:00: [place] 00 Medical Branch gabapentin 2023-0 Yes [facility] 600 mg 2-17 ity of tablet 00:00: [place] 00 Medical Branch citalopram 2023-0 Yes 10mg Take 1 [facility] rs 10 mg 2-17 tablet by ity of tablet 00:00: mouth in [place] the Medical morning. Branch QUEtiapine 2023-0 Yes [facility] 400 mg 2-17 ity of tablet 00:00: [place] 00 Medical Branch gabapentin 2023-0 Yes [facility] 600 mg 2-17 ity of tablet 00:00: [place] 00 Medical Branch citalopram 2023-0 Yes 10mg Take 1 [facility] rs 10 mg 2-17 tablet by ity of tablet 00:00: mouth in [place] the Medical morning. Branch QUEtiapine 2023-0 Yes [facility] 400 mg 2-17 ity of tablet 00:00: [place] 00 Medical Branch gabapentin 2023-0 Yes [facility] 600 mg 2-17 ity of tablet 00:00: [place] 00 Medical Branch citalopram 2023-0 Yes 10mg Take 1 [facility] rs 10 mg 2-17 tablet by ity of tablet 00:00: mouth in [place] the Medical morning. Branch QUEtiapine 2023-0 Yes [facility] 400 mg 2-17 ity of tablet 00:00: [place] 00 Medical Branch gabapentin 2023-0 Yes [facility] 600 mg 2-17 ity of tablet 00:00: [place] 00 Medical Branch citalopram 2023-0 Yes 10mg Take 1 [facility] rs 10 mg 2-17 tablet by ity of tablet 00:00: mouth in [place] the Medical morning. Branch QUEtiapine 2023-0 Yes [facility] 400 mg 2-17 ity of tablet 00:00: [place] 00 Medical Branch gabapentin 2023-0 Yes [facility] 600 mg 2-17 ity of tablet 00:00: [place] [address] Medical Branch citalopram 2023-0 Yes 10mg Take 1 [facility] rs 10 mg 2-17 tablet by ity of tablet 00:00: mouth in [place] the Medical morning. Branch QUEtiapine 2023-0 Yes [facility] 400 mg 2-17 ity of tablet 00:00: [place] 00 Medical Branch gabapentin 2023-0 Yes [facility] 600 mg 2-17 ity of tablet 00:00: [place] 00 Medical Branch citalopram 2023-0 Yes 10mg Take 1 [facility] rs 10 mg 2-17 tablet by ity of tablet 00:00: mouth in [place] the Medical morning. Branch QUEtiapine 2023-0 Yes [facility] 400 mg 2-17 ity of tablet 00:00: [place] 00 Medical Branch gabapentin 2023-0 Yes [facility] 600 mg 2-17 ity of tablet 00:00: [place] 00 Medical Branch citalopram 2023-0 Yes 10mg Take 1 [facility] rs 10 mg 2-17 tablet by ity of tablet 00:00: mouth in [place] the Medical morning. Branch QUEtiapine 3-0 Yes [facility] 400 mg 2-17 ity of tablet 00:00: [place] 00 Medical Branch gabapentin 2023-0 Yes [facility] 600 mg 2-17 ity of tablet 00:00: [place] [address] Medical Branch citalopram 2023-0 Yes 10mg Take 1 [facility] rs 10 mg 2-17 tablet by ity of tablet 00:00: mouth in [place] the Medical morning. Branch QUEtiapine 3-0 Yes [facility] 400 mg 2-17 ity of tablet 00:00: [place] 00 Medical Branch gabapentin 2023-0 Yes [facility] 600 mg 2-17 ity of tablet 00:00: [place] 00 Medical Branch citalopram 2023-0 Yes 10mg Take 1 [facility] rs 10 mg 2-17 tablet by ity of tablet 00:00: mouth in [place] the Medical morning. Branch QUEtiapine 2023-0 Yes [facility] 400 mg 2-17 ity of tablet 00:00: [place] 00 Medical Branch gabapentin 2023-0 Yes [facility] 600 mg 2-17 ity of tablet 00:00: [place] 00 Medical Branch methylPREDN 2023-0 Yes [id number] Take by [facility] ISolone 2-11 mouth ity of (MEDROL, 00:00: SEE-INSTRU [place]ELA,) 4 mg 00 CTIONS. Medica l tablets follow Branch package directions methylPREDN 2023-0 Yes [id number] Take by [facility] ISolone 2-11 mouth ity of (MEDROL, 00:00: SEE-INSTRU [place],) 4 mg 00 CTIONS. Medica l tablets follow Branch package directions methylPREDN 2023-0 Yes [id number] Take by [facility] ISolone 2-11 mouth ity of (MEDROL, 00:00: SEE-INSTRU [place],) 4 mg 00 CTIONS. Medica l tablets follow Branch package directions methylPREDN 2023-0 Yes [id number] Take by [facility] ISolone 2-11 mouth ity of (MEDROL, 00:00: SEE-INSTRU [place],) 4 mg 00 CTIONS. Medica l tablets follow Branch package directions methylPREDN 2023-0 Yes [id number] Take by [facility] ISolone 2-11 mouth ity of (MEDROL, 00:00: SEE-INSTRU [place],) 4 mg 00 CTIONS. Medica l tablets follow Branch package directions methylPREDN 2023-0 Yes [id number] Take by [facility] ISolone 2-11 mouth ity of (MEDROL, 00:00: SEE-INSTRU [place],) 4 mg 00 CTIONS. Medica l tablets follow Branch package directions methylPREDN 2023-0 Yes [id number] Take by [facility] ISolone 2-11 mouth ity of (MEDROL, 00:00: SEE-INSTRU [place],) 4 mg 00 CTIONS. Medica l tablets follow Branch package directions methylPREDN 2023-0 Yes [id number] Take by [facility] ISolone 2-11 mouth ity of (MEDROL, 00:00: SEE-INSTRU [place],) 4 mg 00 CTIONS. Medica l tablets follow Branch package directions methylPREDN 2023-0 Yes [id number] Take by [facility] ISolone 2-11 mouth ity of (MEDROL, 00:00: SEE-INSTRU [place],) 4 mg 00 CTIONS. Medica l tablets follow Branch package directions methylPREDN 2023-0 Yes [id number] Take by [facility] ISolone 2-11 mouth ity of (MEDROL, 00:00: SEE-INSTRU [place],) 4 mg 00 CTIONS. Medica l tablets follow Branch package directions methylPREDN 2023-0 Yes [id number] Take by [facility] ISolone 2-11 mouth ity of (MEDROL, 00:00: SEE-INSTRU [place],) 4 mg 00 CTIONS. Medica l tablets follow Branch package directions methylPREDN 2023-0 Yes [id number] Take by [facility] ISolone 06-23 mouth ity of (MEDROL, 00:00: SEE-INSTRU [place],) 4 mg 00 CTIONS. Medica l tablets follow Branch package directions methylPREDN 2022-0 Yes [id number] Take by [facility] ISolone 11 mouth ity of (MEDROL, 00:00: SEE-INSTRU [place],) 4 mg 00 CTIONS. Medica l tablets follow Branch package directions methylPREDN 2022-0 Yes [id number] Take by [facility] ISolone 11 mouth ity of (MEDROL, 00:00: SEE-INSTRU [place],) 4 mg 00 CTIONS. Medica l tablets follow Branch package directions bromphenira 2022- No [id number] 5mL Take 5 mL [facility] mine-pseudo 06-23 by mouth 4 i ty of ephedrine-D 00:00: 05:59 (four) [place] M (BROMFED 00 :00 times Medical DM) 2-10 daily as Bran ch mg/5 mL needed for syrup Cold symptoms for up to 10 days. methocarbam 2022- No [id number] 750mg Take 1 [facility] oL 750 mg 06-23 [id number] tablet by it y of tablet 00:00: [...] [place] butalbital- 2021-05- No 1{tbl} 1 tablet, [facility] acetaminoph 07-06 Oral, ity of en-caff 20:15: [...] 05/05/22 at 1315, Routine butalbital- 2021-05 Yes [id number] 1{tbl} Take 1 [facility] acetaminoph 2-24 tablet by ity of en-caff 00:00: mouth [place] 50-325-40 00 every 4 Medical mg tablet (four) Branch hours as needed for Pain (scale 7-10). butalbital- 2021-05 Yes [id number] 1{tbl} Take 1 [facility] acetaminoph 2-24 tablet by ity of en-caff 00:00: mouth [place] 50-325-40 00 every 4 Medical mg tablet (four) Branch hours as needed for Pain (scale 7-10). butalbital- 2021-05 Yes [id number] 1{tbl} Take 1 [facility] acetaminoph 2-24 tablet by ity of en-caff 00:00: mouth [place] 50-325-40 00 every 4 Medical mg tablet (four) Branch hours as needed for Pain (scale 7-10). butalbital- 2021-05 Yes [id number] 1{tbl} Take 1 [facility] acetaminoph 2-24 tablet by ity of en-caff 00:00: mouth [place] 50-325-40 00 every 4 Medical mg tablet (four) Branch hours as needed for Pain (scale 7-10). butalbital2021-05 Yes [id number] 1{tbl} Take 1 [facility] acetaminoph 2-24 tablet by ity of en-caff 00:00: mouth [place] 50-325-40 00 every 4 Medical mg tablet (four) Branch hours as needed for Pain (scale 7-10). butalbital2021-05 Yes [id number] 1{tbl} Take 1 [facility] acetaminoph 2-24 tablet by ity of en-caff 00:00: mouth [place] 50-325-40 00 every 4 Medical mg tablet (four) Branch hours as needed for Pain (scale 7-10). butalbital2021-05 Yes [id number] 1{tbl} Take 1 [facility] acetaminoph 2-24 tablet by ity of en-caff 00:00: mouth [place] 50-325-40 00 every 4 Medical mg tablet (four) Branch hours as needed for Pain (scale 7-10). butalbital2021-05 Yes [id number] 1{tbl} Take 1 [facility] acetaminoph 2-24 tablet by ity of en-caff 00:00: mouth [place] 50-325-40 00 every 4 Medical mg tablet (four) Branch hours as needed for Pain (scale 7-10). butalbital- 2021-05 Yes [id number] 1{tbl} Take 1 [facility] acetaminoph 2-24 tablet by ity of en-caff 00:00: mouth [place] 50-325-40 00 every 4 Medical mg tablet (four) Branch hours as needed for Pain (scale 7-10). butalbital- 2021-05 Yes [id number] 1{tbl} Take 1 [facility] acetaminoph 2-24 tablet by ity of en-caff 00:00: mouth [place] 50-325-40 00 every 4 Medical mg tablet (four) Branch hours as needed for Pain (scale 7-10). butalbital- 2021-05 Yes [id number] 1{tbl} Take 1 [facility] acetaminoph 2-24 tablet by ity of en-caff 00:00: mouth [place] 50-325-40 00 every 4 Medical mg tablet (four) Branch hours as needed for Pain (scale 7-10). butalbital- 2021-05 Yes [id number] 1{tbl} Take 1 [facility] acetaminoph 2-24 tablet by ity of en-caff 00:00: mouth [place] 50-325-40 00 every 4 Medical mg tablet (four) Branch hours as needed for Pain (scale 7-10). butalbital- 2021-05 Yes [id number] 1{tbl} Take 1 [facility] acetaminoph 2-24 tablet by ity of en-caff 00:00: mouth [place] 50-325-40 00 every 4 Medical mg tablet (four) Branch hours as needed for Pain (scale 7-10). butalbital- 2021-05 Yes [id number] 1{tbl} Take 1 [facility] acetaminoph 2-24 tablet by ity of en-caff 00:00: mouth [place] 50-325-40 00 every 4 Medical mg tablet (four) Branch hours as needed for Pain (scale 7-10). butalbital2021-05 Yes [id number] 1{tbl} Take 1 [facility] acetaminoph 2-24 tablet by ity of en-caff 00:00: mouth [place] 50-325-40 00 every 4 Medical mg tablet (four) Branch hours as needed for Pain (scale 7-10). butalbital2021-05 Yes [id number] 1{tbl} Take 1 [facility] acetaminoph 2-24 tablet [...] 04/26/22 at 0845, Routine cephALEXin 2021-05- No [id number] 500mg Take 1 [facility] (KEFLEX) 06-27 capsule [...] Nausea and Vomiting (N/V). galcanezuma 2021-05 Yes [id number] 120mg inject 120 [facility] b-gnlm 1-28 mg under ity of prefilled 00:00: [place] (EMGALITY[place] 00 once every Med ical subcutaneou month. Branch s injection galcanezuma 2021-05 Yes [id number] 120mg inject 120 [facility] b-gnlm 1-28 mg under ity of prefilled 00:00: [place] (EMGALITY) 00 once every Med ical subcutaneou month. Branch s injection galcanezuma 2021-05 Yes [id number] 120mg inject 120 [facility] b-gnlm 1-28 mg under ity of prefilled 00:00: [place] (EMGALITY) 00 once every Med ical subcutaneou month. Branch s injection galcanezuma 2021-05 Yes [id number] 120mg inject 120 [facility] b-gnlm 1-28 mg under ity of prefilled 00:00: [place] (EMGALITY) 00 once every Med ical subcutaneou month. Branch s injection galcanezuma 2021-05 Yes [id number] 120mg inject 120 [facility] b-gnlm 1-28 mg under ity of prefilled 00:00: [place] (EMGALITY) 00 once every Med ical subcutaneou month. Branch s injection galcanezuma 2021-05 Yes [id number] 120mg inject 120 [facility] b-gnlm 1-28 mg under ity of prefilled 00:00: [place] (EMGALITY) 00 once every Med ical subcutaneou month. Branch s injection galcanezuma 2021-05 Yes [id number] 120mg inject 120 [facility] b-gnlm 1-28 mg under ity of prefilled 00:00: [place] (EMGALITY) 00 once every Med ical subcutaneou month. Branch s injection galcanezuma 2021-05 Yes [id number] 120mg inject 120 [facility] b-gnlm 1-28 mg under ity of prefilled 00:00: [place] (EMGALITY) 00 once every Med ical subcutaneou month. Branch s injection galcanezuma 2021-05 Yes [id number] 120mg inject 120 [facility] b-gnlm 1-28 mg under ity of prefilled 00:00: the [place] (EMGALITY) 00 once every Med ical subcutaneou month. Branch s injection galcanezuma 2021-05 Yes [id number] 120mg inject 120 [facility] b-gnlm 1-28 mg under ity of prefilled 00:00: the [place] (EMGALITY) 00 once every Med ical subcutaneou month. Branch s injection galcanezuma 2021-05 Yes [id number] 120mg inject 120 [facility] b-gnlm 1-28 mg under ity of prefilled 00:00: the [place] (EMGALITY) 00 once every Med ical subcutaneou month. Branch s injection galcanezuma 2021-05 Yes [id number] 120mg inject 120 [facility] b-gnlm 1-28 mg under ity of prefilled 00:00: the [place] (EMGALITY) 00 once every Med ical subcutaneou month. Branch s injection galcanezuma 2021-05 Yes [id number] 120mg inject 120 [facility] b-gnlm 1-28 mg under ity of prefilled 00:00: the [place] (EMGALITY) 00 once every Med ical subcutaneou month. Branch s injection galcanezuma 2021-05 Yes [id number] 120mg inject 120 [facility] b-gnlm 1-28 mg under ity of prefilled 00:00: the [place] (EMGALITY) 00 once every Med ical subcutaneou month. Branch s injection galcanezuma 2021-05 Yes [id number] 120mg inject 120 [facility] b-gnlm 1-28 mg under ity of prefilled 00:00: the [place] (EMGALITY) 00 once every Med ical subcutaneou month. Branch s injection galcanezuma 2021-05 Yes [id number] 120mg inject 120 [facility] b-gnlm 1-28 mg under ity of prefilled 00:00: the [place] (EMGALITY) 00 once every Med ical subcutaneou month. Branch s injection galcanezuma 2021-05 Yes [id number] 120mg inject 120 [facility] b-gnlm 1-28 mg under ity of prefilled 00:00: the [place] (EMGALITY) 00 once every Med ical subcutaneou month. Branch s injection galcanezuma 2021-05 Yes [id number] 120mg inject 120 [facility] b-gnlm 1-28 mg under ity of prefilled 00:00: the [place] (EMGALITY) 00 once every Med ical subcutaneou month. Branch s injection galcanezuma 2021-05 Yes [id number] 120mg inject 120 [facility] b-gnlm 1-28 mg under ity of prefilled 00:00: the [place] (EMGALITY) 00 once every Med ical subcutaneou month. Branch s injection galcanezuma 2021-05 Yes [id number] 120mg inject 120 [facility] b-gnlm 1-28 mg under ity of prefilled 00:00: the [place] (EMGALITY) 00 once every Med ical subcutaneou month. Branch s injection galcanezuma 2021-05 Yes [id number] 120mg inject 120 [facility] b-gnlm 1-28 mg under ity of prefilled 00:00: the [place] (EMGALITY) 00 once every Med ical subcutaneou month. Branch s injection galcanezuma 2021-05 Yes [id number] 120mg inject 120 [facility] b-gnlm 1-28 mg under ity of prefilled 00:00: the [place] (EMGALITY) 00 once every Med ical subcutaneou month. Branch s injection galcanezuma 2021-05 Yes [id number] 120mg inject 120 [facility] b-gnlm 1-28 mg under ity of prefilled 00:00: the [place] (EMGALITY) 00 once every Med ical subcutaneou month. Branch s injection galcanezuma 2021-05 Yes [id number] 120mg inject 120 [facility] b-gnlm 1-28 mg under ity of prefilled 00:00: the [place] (EMGALITY) 00 once every Med ical subcutaneou month. Branch s injection galcanezuma 2021-05 Yes [id number] 120mg inject 120 [facility] b-gnlm 1-28 mg under ity of prefilled 00:00: [place] (EMGALITY) 00 once every Med ical subcutaneou month. Branch s injection galcanezuma 2021-05 Yes [id number] 120mg inject 120 [facility] b-gnlm 1-28 mg under ity of prefilled 00:00: the [place] (EMGALITY) 00 once every Med ical subcutaneou month. Branch s injection galcanezuma 2021-05 Yes [id number] 120mg inject 120 [facility] b-gnlm 1-28 mg under ity of prefilled 00:00: [place] (EMGALITY) 00 once every Med ical subcutaneou month. Branch s injection galcanezuma 2021-05 Yes [id number] 120mg inject 120 [facility] b-gnlm 1-28 mg under ity of prefilled 00:00: [place] (EMGALITY) 00 once every Med ical subcutaneou month. Branch s injection galcanezuma 2021-05 Yes [id number] 120mg inject 120 [facility] b-gnlm 1-28 mg under ity of prefilled 00:00: [place] (EMGALITY) 00 once every Med ical subcutaneou month. Branch s injection galcanezuma 2021-05 Yes [id number] 120mg inject 120 [facility] b-gnlm 1-28 mg under ity of prefilled 00:00: [place] (EMGALITY) 00 once every Med ical subcutaneou month. Branch s injection galcanezuma 2021-05 Yes [id number] 120mg inject 120 [facility] b-gnlm 1-28 mg under ity of prefilled 00:00: [place] (EMGALITY) 00 once every Med ical subcutaneou month. Branch s injection galcanezuma 2021-05 Yes [id number] 120mg inject 120 [facility] b-gnlm 1-28 mg under ity of prefilled 00:00: [place] (EMGALITY) 00 once every Med ical subcutaneou month. Branch s injection galcanezuma 2021-05 Yes [id number] 120mg inject 120 [facility] b-gnlm 1-28 mg under ity of prefilled 00:00: the [place] once every Med ical subcutaneou month. Branch s injection galcanezuma 2021-05 Yes [id number] 120mg inject 120 [facility] b-gnlm 1-28 mg [...] dose, On Medica l tablet 1 Sat [place] tablet 04/07/22 at 1830, Routine diphenhydrA 2021-05- [...] 13 :00 Medical Branch rizatriptan 2021-05 Yes [id number] 10mg Take 1 [facility] 10 mg 1-12 tablet by [facility]y of tablet 00:00: mouth as [place] 00 needed for Medical Migraine. Branch May repeat in 2 hours if needed Butalbital- 2021-05 Yes [id number] 1{capsu Take 1 [facility] Acetaminoph 1-12 le} [...] daily. Indication s: headache rizatriptan 2021-05 Yes [id number] 10mg Take 1 [facility] 10 mg 1-12 tablet by [facility] of tablet 00:00: mouth as [place] 00 needed for Medical Migraine. Branch May repeat in 2 hours if needed Butalbital- 2021-05 Yes [id number] 1{capsu Take 1 [facility] Acetaminoph 1-12 le} [...] daily. Indication s: headache rizatriptan 2021-05 Yes [id number] 10mg Take 1 [facility] 10 mg 1-12 tablet by [facility]y of tablet 00:00: mouth as [place] 00 needed for Medical Migraine. Branch May repeat in 2 hours if needed Butalbital- 2021-05 Yes [id number] 1{capsu Take 1 [facility] Acetaminoph 1-12 le} [...] daily. Indication s: headache rizatriptan 2021-05 Yes [id number] 10mg Take 1 [facility] 10 mg 1-12 tablet by ity of tablet 00:00: mouth as [place] 00 needed for Medical Migraine. Branch May repeat in 2 hours if needed Butalbital- 2021-05 Yes [id number] 1{capsu Take 1 [facility] Acetaminoph 1-12 le} capsule by it y of en-Caff 00:00: mouth [place] (FIORICET) 00 every 6 Medica l 50-300-40 (six) Branch mg per hours as capsule needed for Other (headache) . rizatriptan 2021-05 Yes [id number] 10mg Take 1 [facility] 10 mg 1-12 tablet by ity of tablet 00:00: mouth as [place] 00 needed for Medical Migraine. Branch May repeat in 2 hours if needed Butalbital- 2021-05 Yes [id number] 1{capsu Take 1 [facility] Acetaminoph 1-12 le} capsule by it y of en-Caff 00:00: mouth [place] (FIORICET) 00 every 6 Medica l 50-300-40 (six) Branch mg per hours as capsule needed for Other (headache) . rizatriptan 2021-05 Yes [id number] 10mg Take 1 [facility] 10 mg 1-12 tablet by ity of tablet 00:00: mouth as [place] 00 needed for Medical Migraine. Branch May repeat in 2 hours if needed Butalbital- 2021-05 Yes [id number] 1{capsu Take 1 [facility] Acetaminoph 1-12 le} capsule by it y of en-Caff 00:00: mouth [place] (FIORICET) 00 every 6 Medica l 50-300-40 (six) Branch mg per hours as capsule needed for Other (headache) . rizatriptan 2021-05 Yes [id number] 10mg Take 1 [facility] 10 mg 1-12 tablet by ity of tablet 00:00: mouth as [place] 00 needed for Medical Migraine. Branch May repeat in 2 hours if needed Butalbital- 2021-05 Yes [id number] 1{capsu Take 1 [facility] Acetaminoph 1-12 le} capsule by it y of en-Caff 00:00: mouth [place] (FIORICET) 00 every 6 Medica l 50-300-40 (six) Branch mg per hours as capsule needed for Other (headache) . rizatriptan 2021-05 Yes [id number] 10mg Take 1 [facility] 10 mg 1-12 tablet by ity of tablet 00:00: mouth as [place] 00 needed for Medical Migraine. Branch May repeat in 2 hours if needed Butalbital- 2021-05 Yes [id number] 1{capsu Take 1 [facility] Acetaminoph 1-12 le} capsule by it y of en-Caff 00:00: mouth [place] (FIORICET) 00 every 6 Medica l 50-300-40 (six) Branch mg per hours as capsule needed for Other (headache) . rizatriptan 2021-05 Yes [id number] 10mg Take 1 [facility] 10 mg 1-12 tablet by ity of tablet 00:00: mouth as [place] 00 needed for Medical Migraine. Branch May repeat in 2 hours if needed Butalbital- 2021-05 Yes [id number] 1{capsu Take 1 [facility] Acetaminoph 1-12 le} capsule by it y of en-Caff 00:00: mouth [place] (FIORICET) 00 every 6 Medica l 50-300-40 (six) Branch mg per hours as capsule needed for Other (headache) . rizatriptan 2021-05 Yes [id number] 10mg Take 1 [facility] 10 mg 1-12 tablet by ity of tablet 00:00: mouth as [place] 00 needed for Medical Migraine. Branch May repeat in 2 hours if needed Butalbital- 2021-05 Yes [id number] 1{capsu Take 1 [facility] Acetaminoph 1-12 le} capsule by it y of en-Caff 00:00: mouth [place] (FIORICET) 00 every 6 Medica l 50-300-40 (six) Branch mg per hours as capsule needed for Other (headache) . rizatriptan 2021-05 Yes [id number] 10mg Take 1 [facility] 10 mg 1-12 tablet by ity of tablet 00:00: mouth as [place] 00 needed for Medical Migraine. Branch May repeat in 2 hours if needed Butalbital- 2021-05 Yes [id number] 1{capsu Take 1 [facility] Acetaminoph 1-12 le} capsule by it y of en-Caff 00:00: mouth [place] (FIORICET) 00 every 6 Medica l 50-300-40 (six) Branch mg per hours as capsule needed for Other (headache) . rizatriptan 2021-05 Yes [id number] 10mg Take 1 [facility] 10 mg 1-12 tablet by ity of tablet 00:00: mouth as [place] 00 needed for Medical Migraine. Branch May repeat in 2 hours if needed Butalbital- 2021-05 Yes [id number] 1{capsu Take 1 [facility] Acetaminoph 1-12 le} capsule by it y of en-Caff 00:00: mouth [place] (FIORICET) 00 every 6 Medica l 50-300-40 (six) Branch mg per hours as capsule needed for Other (headache) . rizatriptan 2021-05 Yes [id number] 10mg Take 1 [facility] 10 mg 1-12 tablet by ity of tablet 00:00: mouth as [place] 00 needed for Medical Migraine. Branch May repeat in 2 hours if needed Butalbital- 2021-05 Yes [id number] 1{capsu Take 1 [facility] Acetaminoph 1-12 le} capsule by it y of en-Caff 00:00: mouth [place] (FIORICET) 00 every 6 Medica l 50-300-40 (six) Branch mg per hours as capsule needed for Other (headache) . rizatriptan 2021-05 Yes [id number] 10mg Take 1 [facility] 10 mg 1-12 tablet by ity of tablet 00:00: mouth as [place] 00 needed for Medical Migraine. Branch May repeat in 2 hours if needed Butalbital- 2021-05 Yes [id number] 1{capsu Take 1 [facility] Acetaminoph 1-12 le} capsule by it y of en-Caff 00:00: mouth [place] (FIORICET) 00 every 6 Medica l 50-300-40 (six) Branch mg per hours as capsule needed for Other (headache) . rizatriptan 2021-05 Yes [id number] 10mg Take 1 [facility] 10 mg 1-12 tablet by ity of tablet 00:00: mouth as [place] 00 needed for Medical Migraine. Branch May repeat in 2 hours if needed Butalbital- 2021-05 Yes [id number] 1{capsu Take 1 [facility] Acetaminoph 1-12 le} capsule by it y of en-Caff 00:00: mouth [place] (FIORICET) 00 every 6 Medica l 50-300-40 (six) Branch mg per hours as capsule needed for Other (headache) . rizatriptan 2021-05 Yes [id number] 10mg Take 1 [facility] 10 mg 1-12 tablet by ity of tablet 00:00: mouth as [place] 00 needed for Medical Migraine. Branch May repeat in 2 hours if needed Butalbital- 2021-05 Yes [id number] 1{capsu Take 1 [facility] Acetaminoph 1-12 le} capsule by it y of en-Caff 00:00: mouth [place] (FIORICET) 00 every 6 Medica l 50-300-40 (six) Branch mg per hours as capsule needed for Other (headache) . rizatriptan 2021-05 Yes [id number] 10mg Take 1 [facility] 10 mg 1-12 tablet by ity of tablet 00:00: mouth as [place] 00 needed for Medical Migraine. Branch May repeat in 2 hours if needed Butalbital- 2021-05 Yes [id number] 1{capsu Take 1 [facility] Acetaminoph 1-12 le} capsule by it y of en-Caff 00:00: mouth [place] (FIORICET) 00 every 6 Medica l 50-300-40 (six) Branch mg per hours as capsule needed for Other (headache) . rizatriptan 2021-05 Yes [id number] 10mg Take 1 [facility] 10 mg 1-12 tablet by ity of tablet 00:00: mouth as [place] 00 needed for Medical Migraine. Branch May repeat in 2 hours if needed Butalbital- 2021-05 Yes [id number] 1{capsu Take 1 [facility] Acetaminoph 1-12 le} capsule by it y of en-Caff 00:00: mouth [place] (FIORICET) 00 every 6 Medica l 50-300-40 (six) Branch mg per hours as capsule needed for Other (headache) . rizatriptan 2021-05 Yes [id number] 10mg Take 1 [facility] 10 mg 1-12 tablet by ity of tablet 00:00: mouth as [place] 00 needed for Medical Migraine. Branch May repeat in 2 hours if needed Butalbital- 2021-05 Yes [id number] 1{capsu Take 1 [facility] Acetaminoph 1-12 le} capsule by it y of en-Caff 00:00: mouth [place] (FIORICET) 00 every 6 Medica l 50-300-40 (six) Branch mg per hours as capsule needed for Other (headache) . rizatriptan 2021-05 Yes [id number] 10mg Take 1 [facility] 10 mg 1-12 tablet by ity of tablet 00:00: mouth as [place] 00 needed for Medical Migraine. Branch May repeat in 2 hours if needed Butalbital- 2021-05 Yes [id number] 1{capsu Take 1 [facility] Acetaminoph 1-12 le} capsule by it y of en-Caff 00:00: mouth [place] (FIORICET) 00 every 6 Medica l 50-300-40 (six) Branch mg per hours as capsule needed for Other (headache) . rizatriptan 2021-05 Yes [id number] 10mg Take 1 [facility] 10 mg 1-12 tablet by ity of tablet 00:00: mouth as [place] 00 needed for Medical Migraine. Branch May repeat in 2 hours if needed Butalbital- 2021-05 Yes [id number] 1{capsu Take 1 [facility] Acetaminoph 1-12 le} capsule by it y of en-Caff 00:00: mouth [place] (FIORICET) 00 every 6 Medica l 50-300-40 (six) Branch mg per hours as capsule needed for Other (headache) . rizatriptan 2021-05 Yes [id number] 10mg Take 1 [facility] 10 mg 1-12 tablet by ity of tablet 00:00: mouth as [place] 00 needed for Medical Migraine. Branch May repeat in 2 hours if needed Butalbital- 2021-05 Yes [id number] 1{capsu Take 1 [facility] Acetaminoph 1-12 le} capsule by it y of en-Caff 00:00: mouth [place] (FIORICET) 00 every 6 Medica l 50-300-40 (six) Branch mg per hours as capsule needed for Other (headache) . rizatriptan 2021-05 Yes [id number] 10mg Take 1 [facility] 10 mg 1-12 tablet by ity of tablet 00:00: mouth as [place] 00 needed for Medical Migraine. Branch May repeat in 2 hours if needed Butalbital- 2021-05 Yes [id number] 1{capsu Take 1 [facility] Acetaminoph 1-12 le} capsule by it y of en-Caff 00:00: mouth [place] (FIORICET) 00 every 6 Medica l 50-300-40 (six) Branch mg per hours as capsule needed for Other (headache) . rizatriptan 2021-05 Yes [id number] 10mg Take 1 [facility] 10 mg 1-12 tablet by ity of tablet 00:00: mouth as [place] 00 needed for Medical Migraine. Branch May repeat in 2 hours if needed Butalbital- 2021-05 Yes [id number] 1{capsu Take 1 [facility] Acetaminoph 1-12 le} capsule by it y of en-Caff 00:00: mouth [place] (FIORICET) 00 every 6 Medica l 50-300-40 (six) Branch mg per hours as capsule needed for Other (headache) . rizatriptan 2021-05 Yes [id number] 10mg Take 1 [facility] 10 mg 1-12 tablet by ity of tablet 00:00: mouth as [place] 00 needed for Medical Migraine. Branch May repeat in 2 hours if needed Butalbital- 2021-05 Yes [id number] 1{capsu Take 1 [facility] Acetaminoph 1-12 le} capsule by it y of en-Caff 00:00: mouth [place] (FIORICET) 00 every 6 Medica l 50-300-40 (six) Branch mg per hours as capsule needed for Other (headache) . rizatriptan 2021-05 Yes [id number] 10mg Take 1 [facility] 10 mg 1-12 tablet by ity of tablet 00:00: mouth as [place] 00 needed for Medical Migraine. Branch May repeat in 2 hours if needed Butalbital- 2021-05 Yes [id number] 1{capsu Take 1 [facility] Acetaminoph 1-12 le} capsule by it y of en-Caff 00:00: mouth [place] (FIORICET) 00 every 6 Medica l 50-300-40 (six) Branch mg per hours as capsule needed for Other (headache) . rizatriptan 2021-05 Yes [id number] 10mg Take 1 [facility] 10 mg 1-12 tablet by ity of tablet 00:00: mouth as [place] 00 needed for Medical Migraine. Branch May repeat in 2 hours if needed Butalbital- 2021-05 Yes [id number] 1{capsu Take 1 [facility] Acetaminoph 1-12 le} capsule by it y of en-Caff 00:00: mouth [place] (FIORICET) 00 every 6 Medica l 50-300-40 (six) Branch mg per hours as capsule needed for Other (headache) . rizatriptan 2021-05 Yes [id number] 10mg Take 1 [facility] 10 mg 1-12 tablet by ity of tablet 00:00: mouth as [place] 00 needed for Medical Migraine. Branch May repeat in 2 hours if needed Butalbital- 2021-05 Yes [id number] 1{capsu Take 1 [facility] Acetaminoph 1-12 le} capsule by it y of en-Caff 00:00: mouth [place] (FIORICET) 00 every 6 Medica l 50-300-40 (six) Branch mg per hours as capsule needed for Other (headache) . rizatriptan 2021-05 Yes [id number] 10mg Take 1 [facility] 10 mg 1-12 tablet by ity of tablet 00:00: mouth as [place] 00 needed for Medical Migraine. Branch May repeat in 2 hours if needed Butalbital- 2021-05 Yes [id number] 1{capsu Take 1 [facility] Acetaminoph 1-12 le} capsule by it y of en-Caff 00:00: mouth [place] (FIORICET) 00 every 6 Medica l 50-300-40 (six) Branch mg per hours as capsule needed for Other (headache) . rizatriptan 2021-05 Yes [id number] 10mg Take 1 [facility] 10 mg 1-12 tablet by ity of tablet 00:00: mouth as [place] 00 needed for Medical Migraine. Branch May repeat in 2 hours if needed Butalbital- 2021-05 Yes [id number] 1{capsu Take 1 [facility] Acetaminoph 1-12 le} capsule by it y of en-Caff 00:00: mouth [place] (FIORICET) 00 every 6 Medica l 50-300-40 (six) Branch mg per hours as capsule needed for Other (headache) . rizatriptan 2021-05 Yes [id number] 10mg Take 1 [facility] 10 mg 1-12 tablet by ity of tablet 00:00: mouth as [place] 00 needed for Medical Migraine. Branch May repeat in 2 hours if needed Butalbital- 2021-05 Yes [id number] 1{capsu Take 1 [facility] Acetaminoph 1-12 le} capsule by it y of en-Caff 00:00: mouth [place] (FIORICET) 00 every 6 Medica l 50-300-40 (six) Branch mg per hours as capsule needed for Other (headache) . rizatriptan 2021-05 Yes [id number] 10mg Take 1 [facility] 10 mg 1-12 tablet by ity of tablet 00:00: mouth as [place] 00 needed for Medical Migraine. Branch May repeat in 2 hours if needed Butalbital- 2021-05 Yes [id number] 1{capsu Take 1 [facility] Acetaminoph 1-12 le} capsule by it y of en-Caff 00:00: mouth [place] (FIORICET) 00 every 6 Medica l 50-300-40 (six) Branch mg per hours as capsule needed for Other (headache) . rizatriptan 2021-05 Yes [id number] 10mg Take 1 [facility] 10 mg 1-12 tablet by ity of tablet 00:00: mouth as [place] 00 needed for Medical Migraine. Branch May repeat in 2 hours if needed Butalbital- 2021-05 Yes [id number] 1{capsu Take 1 [facility] Acetaminoph 1-12 le} capsule by it y of en-Caff 00:00: mouth [place] (FIORICET) 00 every 6 Medica l 50-300-40 (six) Branch mg per hours as capsule needed for Other (headache) . rizatriptan 2021-05 Yes [id number] 10mg Take 1 [facility] 10 mg 1-12 tablet by ity of tablet 00:00: mouth as [place] 00 needed for Medical Migraine. Branch May repeat in 2 hours if needed Butalbital- 2021-05 Yes [id number] 1{capsu Take 1 [facility] Acetaminoph 1-12 le} capsule by it y of en-Caff 00:00: mouth [place] (FIORICET) 00 every 6 Medica l 50-300-40 (six) Branch mg per hours as capsule needed for Other (headache) . rizatriptan 2021-05 Yes [id number] 10mg Take 1 [facility] 10 mg 1-12 tablet by ity of tablet 00:00: mouth as [place] 00 needed for Medical Migraine. Branch May repeat in 2 hours if needed Butalbital- 2021-05 Yes [id number] 1{capsu Take 1 [facility] Acetaminoph 1-12 le} capsule by it y of en-Caff 00:00: mouth [place] (FIORICET) 00 every 6 Medica l 50-300-40 (six) Branch mg per hours as capsule needed for Other (headache) . rizatriptan 2021-05 Yes [id number] 10mg Take 1 [facility] 10 mg 1-12 tablet by ity of tablet 00:00: mouth as [place] 00 needed for Medical Migraine. Branch May repeat in 2 hours if needed Butalbital- 2021-05 Yes [id number] 1{capsu Take 1 [facility] Acetaminoph 1-12 le} capsule by it y of en-Caff 00:00: mouth [place] (FIORICET) 00 every 6 Medica l 50-300-40 (six) Branch mg per hours as capsule needed for Other (headache) . rizatriptan 2021-05 Yes [id number] 10mg Take 1 [facility] 10 mg 1-12 tablet by ity of tablet 00:00: mouth as [place] 00 needed for Medical Migraine. Branch May repeat in 2 hours if needed Butalbital- 2021-05 Yes [id number] 1{capsu Take 1 [facility] Acetaminoph 1-12 le} capsule by it y of en-Caff 00:00: mouth [place] (FIORICET) 00 every 6 Medica l 50-300-40 (six) Branch mg per hours as capsule needed for Other (headache) . rizatriptan 2021-05 Yes [id number] 10mg Take 1 [facility] 10 mg 1-12 tablet by ity of tablet 00:00: mouth as [place] 00 needed for Medical Migraine. Branch May repeat in 2 hours if needed Butalbital- 2021-05 Yes [id number] 1{capsu Take 1 [facility] Acetaminoph 1-12 le} capsule by it y of en-Caff 00:00: mouth [place] (FIORICET) 00 every 6 Medica l 50-300-40 (six) Branch mg per hours as capsule needed for Other (headache) . rizatriptan 2021-05 Yes [id number] 10mg Take 1 [facility] 10 mg 1-12 tablet by ity of tablet 00:00: mouth as [place] 00 needed for Medical Migraine. Branch May repeat in 2 hours if needed Butalbital- 2021-05 Yes [id number] 1{capsu Take 1 [facility] Acetaminoph 1-12 le} [...] l mg [facility] 03/15/22 at 0945, [place] FENTanyl PF [...] yessi mg [facility] 03/15/22 at 0900, [place] ondansetron 2021-05 Yes [id number] 4mg Take 1 [facility] 4 mg 05-15 tablet by ity of disintegrat 00:00: mouth [place] ing tablet 00 every 8 Medica l (eight) [place] hours as needed for Nausea and Vomiting (N/V). ketorolac 2021-05 Yes [id number] 10mg Take 1 U nivers 10 mg 1-03 tablet by ity of tablet 00:00: mouth [place] 00 every 6 Medical (six) Branch hours as needed for Pain (scale 7-10). proMETHazin 2021-05 Yes [id number] 25mg Take 1 [facility] e 25 mg 1-03 tablet by ity of tablet 00:00: mouth [place] 00 every 6 Medical (six) Branch hours as needed for N/V unresponsi ve to Ondansetro n. ondansetron 2021-05 Yes [id number] 4mg Take 1 [facility] 4 mg 1-03 tablet by ity of disintegrat 00:00: mouth [place] ing tablet 00 every 8 Medica l (eight) Branch hours as needed for Nausea and Vomiting (N/V). ketorolac 2021-05 Yes [id number] 10mg Take 1 U nivers 10 mg 1-03 tablet by ity of tablet 00:00: mouth [place] 00 every 6 Medical (six) Branch hours as needed for Pain (scale 7-10). proMETHazin 2021-05 Yes [id number] 25mg Take 1 [facility] e 25 mg 1-03 tablet by ity of tablet 00:00: mouth [place] 00 every 6 Medical (six) Branch hours as needed for N/V unresponsi ve to Ondansetro n. carvediloL 2021-05 Yes [id number] 25mg Take 1 U nivers 25 mg 1-03 tablet by ity of tablet 00:00: mouth in [place] 00 the Medical morning Branch and 1 tablet in the evening. Take with meals. ondansetron 2021-05 Yes [id number] 4mg Take 1 [facility] 4 mg 1-03 tablet by ity of disintegrat 00:00: mouth [place] ing tablet 00 every 8 Medica l (eight) Branch hours as needed for Nausea and Vomiting (N/V). ketorolac 2021-05 Yes [id number] 10mg Take 1 [facility] nivers 10 mg 1-03 tablet by ity of tablet 00:00: mouth [place] 00 every 6 Medical (six) Branch hours as needed for Pain (scale 7-10). proMETHazin 2021-05 Yes [id number] 25mg Take 1 [facility] e 25 mg 1-03 tablet by ity of tablet 00:00: mouth [place] 00 every 6 Medical (six) Branch hours as needed for N/V unresponsi ve to Ondansetro n. carvediloL 2021-05 Yes [id number] 25mg Take 1 U nivers 25 mg 1-03 tablet by ity of tablet 00:00: mouth in [place] 00 the Medical morning Branch and 1 tablet in the evening. Take with meals. ondansetron 2021-05 Yes [id number] 4mg Take 1 [facility] 4 mg 1-03 tablet by ity of disintegrat 00:00: mouth [place] ing tablet 00 every 8 Medica l (eight) Branch hours as needed for Nausea and Vomiting (N/V). ketorolac 2021-05 Yes [id number] 10mg Take 1 U nivers 10 mg 1-03 tablet by ity of tablet 00:00: mouth [place] 00 every 6 Medical (six) Branch hours as needed for Pain (scale 7-10). proMETHazin 2021-05 Yes [id number] 25mg Take 1 [facility] e 25 mg 1-03 tablet by ity of tablet 00:00: mouth [place] 00 every 6 Medical (six) Branch hours as needed for N/V unresponsi ve to Ondansetro n. carvediloL 2021-05 Yes [id number] 25mg Take 1 U nivers 25 mg 1-03 tablet by ity of tablet 00:00: mouth in [place] 00 the Medical morning Branch and 1 tablet in the evening. Take with meals. ondansetron 2021-05 Yes [id number] 4mg Take 1 [facility] 4 mg 1-03 tablet by ity of disintegrat 00:00: mouth [place] ing tablet 00 every 8 Medica l (eight) Branch hours as needed for Nausea and Vomiting (N/V). ketorolac 2021-05 Yes [id number] 10mg Take 1 [facility] nivers 10 mg 1-03 tablet by ity of tablet 00:00: mouth [place] 00 every 6 Medical (six) Branch hours as needed for Pain (scale 7-10). proMETHazin 2021-05 Yes [id number] 25mg Take 1 [facility] e 25 mg 1-03 tablet by ity of tablet 00:00: mouth [place] 00 every 6 Medical (six) Branch hours as needed for N/V unresponsi ve to Ondansetro n. carvediloL 2021-05 Yes [id number] 25mg Take 1 [facility] nivers 25 mg 1-03 tablet by ity of tablet 00:00: mouth in [place] 00 the Medical morning Branch and 1 tablet in the evening. Take with meals. ondansetron 2021-05 Yes [id number] 4mg Take 1 [facility] 4 mg 1-03 tablet by ity of disintegrat 00:00: mouth [place] ing tablet 00 every 8 Medica l (eight) Branch hours as needed for Nausea and Vomiting (N/V). ketorolac 2021-05 Yes [id number] 10mg Take 1 U nivers 10 mg 1-03 tablet by ity of tablet 00:00: mouth [place] 00 every 6 Medical (six) Branch hours as needed for Pain (scale 7-10). proMETHazin 2021-05 Yes [id number] 25mg Take 1 [facility] e 25 mg 1-03 tablet by ity of tablet 00:00: mouth [place] 00 every 6 Medical (six) Branch hours as needed for N/V unresponsi ve to Ondansetro n. carvediloL 2021-05 Yes [id number] 25mg Take 1 [facility] nivers 25 mg 1-03 tablet by ity of tablet 00:00: mouth in [place] 00 the Medical morning Branch and 1 tablet in the evening. Take with meals. ondansetron 2021-05 Yes [id number] 4mg Take 1 [facility] 4 mg 1-03 tablet by ity of disintegrat 00:00: mouth [place] ing tablet 00 every 8 Medica l (eight) Branch hours as needed for Nausea and Vomiting (N/V). ketorolac 2021-05 Yes [id number] 10mg Take 1 [facility] nivers 10 mg 1-03 tablet by ity of tablet 00:00: mouth [place] 00 every 6 Medical (six) Branch hours as needed for Pain (scale 7-10). proMETHazin 2021-05 Yes [id number] 25mg Take 1 [facility] e 25 mg 1-03 tablet by ity of tablet 00:00: mouth [place] 00 every 6 Medical (six) Branch hours as needed for N/V unresponsi ve to Ondansetro n. carvediloL 2021-05 Yes [id number] 25mg Take 1 [facility] nivers 25 mg 1-03 tablet by ity of tablet 00:00: mouth in [place] 00 the Medical morning Branch and 1 tablet in the evening. Take with meals. ondansetron 2021-05 Yes [id number] 4mg Take 1 [facility] 4 mg 1-03 tablet by ity of disintegrat 00:00: mouth [place] ing tablet 00 every 8 Medica l (eight) Branch hours as needed for Nausea and Vomiting (N/V). ketorolac 2021-05 Yes [id number] 10mg Take 1 [facility] nivers 10 mg 1-03 tablet by ity of tablet 00:00: mouth [place] 00 every 6 Medical (six) Branch hours as needed for Pain (scale 7-10). proMETHazin 2021-05 Yes [id number] 25mg Take 1 [facility] e 25 mg 1-03 tablet by ity of tablet 00:00: mouth [place] 00 every 6 Medical (six) Branch hours as needed for N/V unresponsi ve to Ondansetro n. carvediloL 2021-05 Yes [id number] 25mg Take 1 [facility] nivers 25 mg 1-03 tablet by ity of tablet 00:00: mouth in [place] 00 the Medical morning Branch and 1 tablet in the evening. Take with meals. ondansetron 2021-05 Yes [id number] 4mg Take 1 [facility] 4 mg 1-03 tablet by ity of disintegrat 00:00: mouth [place] ing tablet 00 every 8 Medica l (eight) Branch hours as needed for Nausea and Vomiting (N/V). ketorolac 2021-05 Yes [id number] 10mg Take 1 [facility] nivers 10 mg 1-03 tablet by ity of tablet 00:00: mouth [place] 00 every 6 Medical (six) Branch hours as needed for Pain (scale 7-10). proMETHazin 2021-05 Yes [id number] 25mg Take 1 [facility] e 25 mg 1-03 tablet by ity of tablet 00:00: mouth [place] 00 every 6 Medical (six) Branch hours as needed for N/V unresponsi ve to Ondansetro n. carvediloL 2021-05 Yes [id number] 25mg Take 1 [facility] nivers 25 mg 1-03 tablet by ity of tablet 00:00: mouth in [place] 00 the Medical morning Branch and 1 tablet in the evening. Take with meals. ondansetron 2021-05 Yes [id number] 4mg Take 1 [facility] 4 mg 1-03 tablet by ity of disintegrat 00:00: mouth [place] ing tablet 00 every 8 Medica l (eight) Branch hours as needed for Nausea and Vomiting (N/V). ketorolac 2021-05 Yes [id number] 10mg Take 1 U nivers 10 mg 1-03 tablet by ity of tablet 00:00: mouth [place] 00 every 6 Medical (six) Branch hours as needed for Pain (scale 7-10). proMETHazin 2021-05 Yes [id number] 25mg Take 1 [facility] e 25 mg 1-03 tablet by ity of tablet 00:00: mouth [place] 00 every 6 Medical (six) Branch hours as needed for N/V unresponsi ve to Ondansetro n. carvediloL 2021-05 Yes [id number] 25mg Take 1 U nivers 25 mg 1-03 tablet by ity of tablet 00:00: mouth in [place] [address] the Medical morning Branch and 1 tablet in the evening. Take with meals. carvediloL 2021-05 Yes [id number] 25mg Take 1 U nivers 25 mg 1-03 tablet by ity of tablet 00:00: mouth in [place] [address] the Medical morning Branch and 1 tablet in the evening. Take with meals. carvediloL 2021-05 Yes [id number] 25mg Take 1 U nivers 25 mg 1-03 tablet by ity of tablet 00:00: mouth in [place] [address] the Medical morning Branch and 1 tablet in the evening. Take with meals. carvediloL 2021-05 Yes [id number] 25mg Take 1 U nivers 25 mg 1-03 tablet by ity of tablet 00:00: mouth in [place] 00 the Medical morning Branch and 1 tablet in the evening. Take with meals. carvediloL 2021-05 Yes [id number] 25mg Take 1 U nivers 25 mg 1-03 tablet by ity of tablet 00:00: mouth in [place] [address] the Medical morning Branch and 1 tablet in the evening. Take with meals. carvediloL 2021-05 Yes [id number] 25mg Take 1 U nivers 25 mg 1-03 tablet by ity of tablet 00:00: mouth in [place] [address] the [facility] morning [place] and 1 tablet in the evening. Take with meals. carvediloL 2021-05 Yes [id number] 25mg Take 1 U nivers 25 mg 1-03 tablet by ity of tablet 00:00: mouth in [place] [address] the Medical morning [place] and 1 tablet in the evening. Take with meals. carvediloL 2021-05 Yes [id number] 25mg Take 1 [facility] nivers 25 mg 1-03 tablet by ity of tablet 00:00: mouth in [place] [address] the Medical morning [place] and 1 tablet in the evening. Take with meals. carvediloL 2021-05 Yes [id number] 25mg Take 1 [facility] nivers 25 mg 1-03 tablet by ity of tablet 00:00: mouth in [place] [address] the Medical morning [place] and 1 tablet in the evening. Take with meals. carvediloL 2021-05 Yes [id number] 25mg Take 1 [facility] nivers 25 mg 1-03 tablet by ity of tablet 00:00: mouth in [place] [address] the Medical morning [place] and 1 tablet in the evening. Take with meals. carvediloL 2021-05 Yes [id number] 25mg Take 1 [facility] nivers 25 mg 1-03 tablet by ity of tablet 00:00: mouth in [place] [address] the Medical morning [place] and 1 tablet in the evening. Take with meals. carvediloL 2021-05 Yes [id number] 25mg Take 1 U nivers 25 mg 1-03 tablet by ity of tablet 00:00: mouth in [place] [address] the [facility] morning [place] and 1 tablet in the evening. Take with meals. carvediloL 2021-05 Yes [id number] 25mg Take 1 [facility] nivers 25 mg 1-03 tablet by ity of tablet 00:00: mouth in [place] [address] the Medical morning [place] and 1 tablet in the evening. Take with meals. carvediloL 2021-05 Yes [id number] 25mg Take 1 U nivers 25 mg 1-03 tablet by ity of tablet 00:00: mouth in [address] morning [place] and 1 tablet in the evening. Take with meals. carvediloL 2021-05 Yes [id number] 25mg Take 1 U nivers 25 mg 1-03 tablet by ity of tablet 00:00: mouth in [address] morning [place] and 1 tablet in the evening. Take with meals. carvediloL 2021-05 Yes [id number] 25mg Take 1 [facility] nivers 25 mg 1-03 tablet by ity of tablet 00:00: mouth in [address] morning [place] and 1 tablet in the evening. Take with meals. carvediloL 2021-05 Yes [id number] 25mg Take 1 [facility] nivers 25 mg 1-03 tablet by ity of tablet 00:00: mouth in [place] [address] the [facility] morning [place] and 1 tablet in the evening. Take with meals. carvediloL 2021-05 Yes [id number] 25mg Take 1 [facility] nivers 25 mg 1-03 tablet by ity of tablet 00:00: mouth in [place] [address] the [facility] and 1 tablet in the evening. Take with meals. carvediloL 2021-05 Yes [id number] 25mg Take 1 [facility] nivers 25 mg 1-03 tablet by ity of tablet 00:00: mouth in [place] [address] the [facility] and 1 tablet in the evening. Take with meals. carvediloL 2021-05 Yes [id number] 25mg Take 1 [facility] nivers 25 mg 1-03 tablet by ity of tablet 00:00: mouth in [place] [address] the [facility] and 1 tablet in the evening. Take with meals. carvediloL 2021-05 Yes [id number] 25mg Take 1 [facility] nivers 25 mg 1-03 tablet by ity of tablet 00:00: mouth in [address] and 1 tablet in the evening. Take with meals. carvediloL 2021-05 Yes [id number] 25mg Take 1 [facility] nivers 25 mg 1-03 tablet by ity of tablet 00:00: mouth in [place] [address] the [facility] and 1 tablet in the evening. Take with meals. carvediloL 2021-05- No [id number] 25mg Take 1 [facility] 25 mg 1-03 04-26 tablet by ity of tablet 00:00: 00:00 mouth in [place] 00 :00 the [facility] and 1 tablet in the evening. Take with meals. carvediloL 2021-05- No [id number] 25mg Take 1 [facility] 25 mg 1-03 04-26 tablet by ity of tablet 00:00: 00:00 mouth in [place] 00 :00 the [facility] and 1 tablet in the evening. Take with meals. ondansetron 2021-05- No [id number] 4mg Take 1 [facility] 4 mg 1-03 11-26 tablet by ity of disintegrat 00:00: 00:[place] :00 every 8 Medica l (eight) Branch hours as needed for Nausea and Vomiting (N/V). ketorolac 2021-05- No [id number] 10mg Take 1 [facility] 10 mg 05-15 tablet by ity of tablet 00:00: 00:00 mouth [place] 00 :00 every 6 Medical (six) Branch hours as needed for Pain (scale 7-10). proMETHazin 2021-05- No [id number] 25mg Take 1 [facility] e 25 mg 05-15 tablet by ity of tablet 00:00: 00:00 mouth [place] 00 :00 every 6 Medical (six) Branch hours as needed for N/V unresponsi ve to Ondansetro n. cephALEXin 2021-05- No [id number] 500mg Take 1 [facility] 500 mg 05-15 capsule by ity of capsule 00:00: 05:59 mouth 4 [place] 00 :00 (four) Medical times Branch daily for 3 days. cephALEXin 2021-05- No [id number] 500mg Take 1 [facility] 500 mg 05-15 capsule by ity of capsule 00:00: 05:59 mouth 4 [place] 00 :00 (four) Medical times Branch daily for 3 days. cephALEXin 2021-05- No [id number] 500mg Take 1 [facility] 500 mg 05-15 capsule by ity of capsule 00:00: 05:59 mouth 4 [place] 00 :00 (four) Medical times Branch daily for 3 days. predniSONE 2021-05- No [id number] 20mg Take 1 [facility] 20 mg 003-15 [...] piggyback at 0945, [place] proMETHazin 2021-05 Yes [id number] 25mg Take 1 [facility] e 25 mg 0-30 tablet by ity of tablet 00:00: mouth [place] 00 every 6 Medical (six) Branch hours as needed for Nausea and Vomiting (N/V). methocarbam 2021-05 Yes [id number] 500mg Take 1 [facility] oL 500 mg 0-30 tablet by ity o f tablet 00:00: mouth 3 (three) Medical times Branch daily as needed for Pain (scale 7-10). proMETHazin 2021-05 Yes [id number] 25mg Take 1 [facility] e 25 mg 0-30 tablet by ity of tablet 00:00: mouth [place] 00 every 6 Medical (six) Branch hours as needed for Nausea and Vomiting (N/V). methocarbam 2021-05 Yes [id number] 500mg Take 1 [facility] oL 500 mg 0-30 tablet by ity o f tablet 00:00: mouth 3 (three) Medical times Branch daily as needed for Pain (scale 7-10). proMETHazin 2021-05 Yes [id number] 25mg Take 1 [facility] e 25 mg 0-30 tablet by ity of tablet 00:00: mouth [place] 00 every 6 Medical (six) Branch hours as needed for Nausea and Vomiting (N/V). methocarbam 2021-05 Yes [id number] 500mg Take 1 [facility] oL 500 mg 0-30 tablet by ity o f tablet 00:00: mouth (three) Medical times Branch daily as needed for Pain (scale 7-10). proMETHazin 2021-05 Yes [id number] 25mg Take 1 [facility] e 25 mg 0-30 tablet by ity of tablet 00:00: mouth [place] 00 every 6 Medical (six) Branch hours as needed for Nausea and Vomiting (N/V). methocarbam 2021-05 Yes [id number] 500mg Take 1 [facility] oL 500 mg 0-30 tablet by ity o f tablet 00:00: mouth (three) Medical times Branch daily as needed for Pain (scale 7-10). proMETHazin 2021-05 Yes [id number] 25mg Take 1 Univers e 25 mg 0-30 tablet by ity of tablet 00:00: mouth [place] 00 every 6 Medical (six) Branch hours as needed for Nausea and Vomiting (N/V). methocarbam 2021-05 Yes [id number] 500mg Take 1 [facility] oL 500 mg 0-30 tablet by ity o f tablet 00:00: mouth 3 (three) Medical times Branch daily as needed for Pain (scale 7-10). proMETHazin 2021-05 Yes [id number] 25mg Take 1 [facility] e 25 mg 0-30 tablet by ity of tablet 00:00: mouth [place] 00 every 6 Medical (six) Branch hours as needed for Nausea and Vomiting (N/V). methocarbam 2021-05 Yes [id number] 500mg Take 1 [facility] oL 500 mg 0-30 tablet by ity o f tablet 00:00: mouth 3 [place] 00 (three) Medical times Branch daily as needed for Pain (scale 7-10). proMETHazin 2021-05 Yes [id number] 25mg Take 1 [facility] e 25 mg 0-30 tablet by ity of tablet 00:00: mouth [place] 00 every 6 Medical (six) Branch hours as needed for Nausea and Vomiting (N/V). methocarbam 2021-05 Yes [id number] 500mg Take 1 [facility] oL 500 mg 0-30 tablet by ity o f tablet 00:00: mouth 3 [place] 00 (three) Medical times Branch daily as needed for Pain (scale 7-10). proMETHazin 2021-05 Yes [id number] 25mg Take 1 [facility] e 25 mg 0-30 tablet by ity of tablet 00:00: mouth [place] 00 every 6 Medical (six) Branch hours as needed for Nausea and Vomiting (N/V). methocarbam 2021-05 Yes [id number] 500mg Take 1 [facility] oL 500 mg 0-30 tablet by ity o f tablet 00:00: mouth 3 00 (three) Medical times Branch daily as needed for Pain (scale 7-10). proMETHazin 2021-05 Yes [id number] 25mg Take 1 [facility] e 25 mg 0-30 tablet by ity of tablet 00:00: mouth [place] 00 every 6 Medical (six) Branch hours as needed for Nausea and Vomiting (N/V). methocarbam 2021-05 Yes [id number] 500mg Take 1 [facility] oL 500 mg 0-30 tablet by ity o f tablet 00:00: mouth 3 [place] 00 (three) Medical times Branch daily as needed for Pain (scale 7-10). proMETHazin 2021-05 Yes [id number] 25mg Take 1 [facility] e 25 mg 0-30 tablet by ity of tablet 00:00: mouth [place] 00 every 6 Medical (six) Branch hours as needed for Nausea and Vomiting (N/V). methocarbam 2021-05 Yes [id number] 500mg Take 1 [facility] oL 500 mg 0-30 tablet by ity o f tablet 00:00: mouth 3 [place] 00 (three) Medical times Branch daily as needed for Pain (scale 7-10). proMETHazin 2021-05 Yes [id number] 25mg Take 1 [facility] e 25 mg 0-30 tablet by ity of tablet 00:00: mouth [place] 00 every 6 Medical (six) Branch hours as needed for Nausea and Vomiting (N/V). methocarbam 2021-05 Yes [id number] 500mg Take 1 [facility] oL 500 mg 0-30 tablet by ity o f tablet 00:00: mouth 3 [place] 00 (three) Medical times Branch daily as needed for Pain (scale 7-10). proMETHazin 2021-05 Yes [id number] 25mg Take 1 [facility] e 25 mg 0-30 tablet by ity of tablet 00:00: mouth [place] 00 every 6 Medical (six) Branch hours as needed for Nausea and Vomiting (N/V). proMETHazin 2021-05 Yes [id number] 25mg Take 1 [facility] e 25 mg 0-30 tablet by ity of tablet 00:00: mouth [place] 00 every 6 Medical (six) Branch hours as needed for Nausea and Vomiting (N/V). proMETHazin 2021-05 Yes [id number] 25mg Take 1 [facility] e 25 mg 0-30 tablet by ity of tablet 00:00: mouth [place] 00 every 6 Medical (six) Branch hours as needed for Nausea and Vomiting (N/V). proMETHazin 2021-05 Yes [id number] 25mg Take 1 [facility] e 25 mg 0-30 tablet by ity of tablet 00:00: mouth [place] 00 every 6 Medical (six) Branch hours as needed for Nausea and Vomiting (N/V). proMETHazin 2021-05 Yes [id number] 25mg Take 1 [facility] e 25 mg 0-30 tablet by ity of tablet 00:00: mouth [place] 00 every 6 Medical (six) Branch hours as needed for Nausea and Vomiting (N/V). proMETHazin 2021-05 Yes [id number] 25mg Take 1 [facility] e 25 mg 0-30 tablet by ity of tablet 00:00: mouth [place] 00 every 6 Medical (six) Branch hours as needed for Nausea and Vomiting (N/V). proMETHazin 2021-05 Yes [id number] 25mg Take 1 [facility] e 25 mg 0-30 tablet by ity of tablet 00:00: mouth [place] 00 every 6 Medical (six) Branch hours as needed for Nausea and Vomiting (N/V). proMETHazin 2021-05 Yes [id number] 25mg Take 1 [facility] e 25 mg 0-30 tablet by ity of tablet 00:00: mouth [place] 00 every 6 Medical (six) Branch hours as needed for Nausea and Vomiting (N/V). proMETHazin 2021-05 Yes [id number] 25mg Take 1 [facility] e 25 mg 0-30 tablet by ity of tablet 00:00: mouth [place] 00 every 6 Medical (six) Branch hours as needed for Nausea and Vomiting (N/V). proMETHazin 2021-05 Yes [id number] 25mg Take 1 [facility] e 25 mg 0-30 tablet by ity of tablet 00:00: mouth [place] 00 every 6 Medical (six) Branch hours as needed for Nausea and Vomiting (N/V). proMETHazin 2021-05 Yes [id number] 25mg Take 1 [facility] e 25 mg 0-30 tablet by ity of tablet 00:00: mouth [place] 00 every 6 Medical (six) Branch hours as needed for Nausea and Vomiting (N/V). proMETHazin 2021-05 Yes [id number] 25mg Take 1 [facility] e 25 mg 0-30 tablet by ity of tablet 00:00: mouth [place] 00 every 6 Medical (six) Branch hours as needed for Nausea and Vomiting (N/V). proMETHazin 2021-05 Yes [id number] 25mg Take 1 [facility] e 25 mg 0-30 tablet by ity of tablet 00:00: mouth [place] 00 every 6 Medical (six) Branch hours as needed for Nausea and Vomiting (N/V). proMETHazin 2021-05 Yes [id number] 25mg Take 1 [facility] e 25 mg 0-30 tablet by ity of tablet 00:00: mouth [place] 00 every 6 Medical (six) Branch hours as needed for Nausea and Vomiting (N/V). proMETHazin 2021-05 Yes [id number] 25mg Take 1 [facility] e 25 mg 0-30 tablet by ity of tablet 00:00: mouth [place] 00 every 6 Medical (six) Branch hours as needed for Nausea and Vomiting (N/V). proMETHazin 2021-05 Yes [id number] 25mg Take 1 [facility] e 25 mg 0-30 tablet by ity of tablet 00:00: mouth [place] 00 every 6 Medical (six) Branch hours as needed for Nausea and Vomiting (N/V). proMETHazin 2021-05 Yes [id number] 25mg Take 1 [facility] e 25 mg 0-30 tablet by ity of tablet 00:00: mouth [place] 00 every 6 Medical (six) Branch hours as needed for Nausea and Vomiting (N/V). proMETHazin 2021-05- No [id number] 25mg Take 1 [facility] e 25 mg 0-30 03-21 tablet by ity of tablet 00:00: 00:00 mouth [place] 00 :00 every 6 Medical (six) Branch hours as needed for Nausea and Vomiting (N/V). methocarbam 2021-05 No [id number] 500mg Take 1 [facility] oL 500 mg 0-30 11-26 tablet by ity of tablet 00:00: 00:00 mouth 3 [place] 00 :00 (three) Medical times Branch daily as needed for Pain (scale 7-10). topiramate 2021-05 Yes [id number] 100mg Take 4 [facility] 25 mg 0-21 tablets by ity of tablet 00:00: mouth in [place] 00 the Medical morning. [place] topiramate 2021-05 Yes [id number] 100mg Take 4 [facility] 25 mg 0-21 tablets by ity of tablet 00:00: mouth in [place] 00 the Medical morning. [place] topiramate 2021-05 Yes [id number] 100mg Take 4 [facility] 25 mg 0-21 tablets by ity of tablet 00:00: mouth in [place] 00 the Medical morning. [place] topiramate 2021-05 Yes [id number] 100mg Take 4 [facility] 25 mg 0-21 tablets by ity of tablet 00:00: mouth in [place] 00 the Medical morning. [place] topiramate 2021-05 Yes [id number] 100mg Take 4 [facility] 25 mg 0-21 tablets by ity of tablet 00:00: mouth in [place] 00 the Medical morning. [place] topiramate 2021-05 Yes [id number] 100mg Take 4 [facility] 25 mg 0-21 tablets by ity of tablet 00:00: mouth in [place] 00 the Medical morning. [place] topiramate 2021-05 Yes [id number] 100mg Take 4 [facility] 25 mg 0-21 tablets by ity of tablet 00:00: mouth in [place] 00 the Medical morning. Branch topiramate 2021-1 Yes [id number] 100mg Take 4 [facility] 25 mg 0-21 tablets by ity of tablet 00:00: mouth in [place] the Medical morning. Branch topiramate 2-1 Yes [id number] 100mg Take 4 [facility] 25 mg 0-21 tablets by ity of tablet 00:00: mouth in [place] the Medical morning. Branch topiramate 2-1 Yes [id number] 100mg Take 4 [facility] 25 mg 0-21 tablets by ity of tablet 00:00: mouth in [place] the Medical morning. Branch topiramate 2-1 Yes [id number] 100mg Take 4 [facility] 25 mg 0-21 tablets by ity of tablet 00:00: mouth in [place] the Medical morning. Branch topiramate 2-1 Yes [id number] 100mg Take 4 [facility] 25 mg 0-21 tablets by ity of tablet 00:00: mouth in [place] the Medical morning. Branch topiramate 2021-1 Yes [id number] 100mg Take 4 [facility] 25 mg 0-21 tablets by ity of tablet 00:00: mouth in [place] the Medical morning. Branch topiramate 2021-1 Yes [id number] 100mg Take 4 [facility] 25 mg 0-21 tablets by ity of tablet 00:00: mouth in [place] the Medical morning. Branch topiramate 2-1 Yes [id number] 100mg Take 4 [facility] 25 mg 0-21 tablets by ity of tablet 00:00: mouth in [place] the Medical morning. Branch topiramate 2-1 Yes [id number] 100mg Take 4 [facility] 25 mg 0-21 tablets by ity of tablet 00:00: mouth in [place] the Medical morning. Branch topiramate 2-1 Yes [id number] 100mg Take 4 [facility] 25 mg 0-21 tablets by ity of tablet 00:00: mouth in [place] the Medical morning. Branch topiramate 2022-1 Yes [id number] 100mg Take 4 [facility] 25 mg 0-21 tablets by ity of tablet 00:00: mouth in [place] 00 the Medical morning. Branch topiramate 2022-1 Yes [id number] 100mg Take 4 [facility] 25 mg 0-21 tablets by ity of tablet 00:00: mouth in [place] 00 the Medical morning. Branch topiramate 2022-1 Yes [id number] 100mg Take 4 [facility] 25 mg 0-21 tablets by ity of tablet 00:00: mouth in [place] 00 the Medical morning. Branch topiramate 2-1 Yes [id number] 100mg Take 4 [facility] 25 mg 0-21 tablets by ity of tablet 00:00: mouth in [place] the Medical morning. Branch topiramate 2021-1 Yes [id number] 100mg Take 4 [facility] 25 mg 0-21 tablets by ity of tablet 00:00: mouth in [place] the Medical morning. Branch topiramate 2021-1 Yes [id number] 100mg Take 4 [facility] 25 mg 0-21 tablets by ity of tablet 00:00: mouth in [place] the Medical morning. Branch topiramate 2021- Yes [id number] 100mg Take 4 [facility] 25 mg 0-21 tablets by ity of tablet 00:00: mouth in [place] the Medical morning. Branch topiramate 2021- Yes [id number] 100mg Take 4 [facility] 25 mg 0-21 tablets by ity of tablet 00:00: mouth in [place] the Medical morning. Branch topiramate 2021- Yes [id number] 100mg Take 4 [facility] 25 mg 0-21 tablets by ity of tablet 00:00: mouth in [place] the Medical morning. Branch topiramate 2021- Yes [id number] 100mg Take 4 [facility] 25 mg 0-21 tablets by ity of tablet 00:00: mouth in [place] the Medical morning. Branch topiramate 2021- Yes [id number] 100mg Take 4 [facility] 25 mg 0-21 tablets by ity of tablet 00:00: mouth in [place] the Medical morning. Branch topiramate 2-1 Yes [id number] 100mg Take 4 [facility] 25 mg 0-21 tablets by ity of tablet 00:00: mouth in [place] 00 the Medical morning. Branch topiramate 2-1 Yes [id number] 100mg Take 4 [facility] 25 mg 0-21 tablets by ity of tablet 00:00: mouth in [place] 00 the Medical morning. Branch topiramate 2-1 Yes [id number] 100mg Take 4 [facility] 25 mg 0-21 tablets by ity of tablet 00:00: mouth in [place] 00 the Medical morning. Branch topiramate 2021-1 Yes [id number] 100mg Take 4 [facility] 25 mg 0-21 tablets by ity of tablet 00:00: mouth in [place] 00 the Medical morning. Branch topiramate 2021-1 Yes [id number] 100mg Take 4 [facility] 25 mg 0-21 tablets by ity of tablet 00:00: mouth in [place] the Medical morning. Branch topiramate 2-1 Yes [id number] 100mg Take 4 [facility] 25 mg 0-21 tablets by ity of tablet 00:00: mouth in [place] the Medical morning. Branch topiramate 2-1 Yes [id number] 100mg Take 4 [facility] 25 mg 0-21 tablets by ity of tablet 00:00: mouth in [place] the Medical morning. Branch topiramate 2-1 Yes [id number] 100mg Take 4 [facility] 25 mg 0-21 tablets by ity of tablet 00:00: mouth in [place] the Medical morning. Branch topiramate 2-1 Yes [id number] 100mg Take 4 [facility] 25 mg 0-21 tablets by ity of tablet 00:00: mouth in [place] the Medical morning. Branch topiramate 2021-1 Yes [id number] 100mg Take 4 [facility] 25 mg 0-21 tablets by ity of tablet 00:00: mouth in [place] the Medical morning. Branch topiramate 2021-1 Yes [id number] 100mg Take 4 [facility] 25 mg 0-21 tablets by ity of tablet 00:00: mouth in [place] the Medical morning. Branch topiramate 2-1 Yes [id number] 100mg Take 4 [facility] 25 mg 0-21 tablets by ity of tablet 00:00: mouth in [place] the Medical morning. Branch topiramate 2-1 Yes [id number] 100mg Take 4 [facility] 25 mg 0-21 tablets by ity of tablet 00:00: mouth in [place] the Medical morning. Branch topiramate 2-1 Yes [id number] 100mg Take 4 [facility] 25 mg 0-21 tablets by ity of tablet 00:00: mouth in [place] the Medical morning. Branch topiramate 2022-1 Yes [id number] 100mg Take 4 [facility] 25 mg 0-21 tablets by ity of tablet 00:00: mouth in [place] 00 the Medical morning. Branch topiramate 2022-1 Yes [id number] 100mg Take 4 [facility] 25 mg 0-21 tablets by ity of tablet 00:00: mouth in [place] 00 the Medical morning. Branch topiramate 2022-1 Yes [id number] 100mg Take 4 [facility] 25 mg 0-21 tablets by ity of tablet 00:00: mouth in [place] 00 the Medical morning. Branch topiramate 2021-05 Yes [id number] 100mg Take 4 [facility] 25 mg 0-21 tablets by ity of tablet 00:00: mouth in [place] 00 the Medical morning. Branch topiramate 2021-05 Yes [id number] 100mg Take 4 [facility] 25 mg 0-21 tablets by ity of tablet 00:00: mouth in [place] 00 the Medical morning. Branch topiramate 2021-05 Yes [id number] 100mg Take 4 [facility] 25 mg 0-21 tablets by ity of tablet 00:00: mouth in [place] 00 the Medical morning. Branch diphenhydrA 2021-05- No 25mg Take 25 mg [facility] MINE 25 mg 0-18 10-18 by mouth ity of capsule 09:39: 00:00 every 6 [place] 59 :00 (six) Medical hours as Branch needed for Allergies. diphenhydrA 2021-05- No 25mg Take 25 mg [facility] MINE 25 mg 0-18 10-18 by mouth ity of capsule 09:39: 00:00 every 6 [place] 59 :00 (six) Medical hours as Branch needed for Allergies. diphenhydrA 2021-05 No 25mg Take 25 mg [facility] MINE 25 mg 0-18 10-18 by mouth ity of capsule 09:39: 00:00 every 6 [place] 59 :00 (six) Medical hours as Branch needed for Allergies. diphenhydrA 2021-05- No 25mg Take 25 mg [facility] MINE 25 mg 0-18 10-18 by mouth ity of capsule 09:39: 00:00 every 6 [place] 59 :00 (six) Medical hours as Branch needed for Allergies. diphenhydrA 2021-05- No 25mg Take 25 mg [facility] MINE 25 mg 0-18 10-18 by mouth ity of capsule 09:39: 00:00 every 6 [place] 59 :00 (six) Medical hours as Branch needed for Allergies. citalopram 2021-05- No Take by Uni vers hydrobromid 0-18 10-18 mouth. ity o f e 09:39: 00:00 [place] (CITALOPRAM 49 :00 Medical ORAL) Branch citalopram [...] 28 :00 Medical Branch albuterol 2021-05 Yes [id number] 2{puff} Inhale 2 [facility] 90 0-18 Puffs ity of mcg/actuati 00:00: every 6 [place] as on inhaler 00 (six) Medical hours as Branch needed for Wheezing or Shortness of Breath. albuterol 2021-05 Yes [id number] 2{puff} Inhale 2 [facility] 90 0-18 Puffs ity of mcg/actuati 00:00: every 6 [place] as on inhaler 00 (six) Medical hours as Branch needed for Wheezing or Shortness of Breath. albuterol 2021-05 Yes [id number] 2{puff} Inhale 2 [facility] 90 0-18 Puffs ity of mcg/actuati 00:00: every 6 [place] as on inhaler 00 (six) Medical hours as Branch needed for Wheezing or Shortness of Breath. albuterol 2021-05 Yes [id number] 2{puff} Inhale 2 [facility] 90 0-18 Puffs ity of mcg/actuati 00:00: every 6 [place] on inhaler 00 (six) Medical hours as Branch needed for Wheezing or Shortness of Breath. albuterol 2021-05 Yes [id number] 2{puff} Inhale 2 [facility] 90 0-18 Puffs ity of mcg/actuati 00:00: every 6 [place] on inhaler 00 (six) Medical hours as Branch needed for Wheezing or Shortness of Breath. albuterol 2021-05 Yes [id number] 2{puff} Inhale 2 [facility] 90 0-18 Puffs ity of mcg/actuati 00:00: every 6 [place] as on inhaler 00 (six) Medical hours as Branch needed for Wheezing or Shortness of Breath. albuterol 2021-05 Yes [id number] 2{puff} Inhale 2 [facility] 90 0-18 Puffs ity of mcg/actuati 00:00: every 6 [place] as on inhaler 00 (six) Medical hours as Branch needed for Wheezing or Shortness of Breath. albuterol 2021-05 Yes [id number] 2{puff} Inhale 2 [facility] 90 0-18 Puffs ity of mcg/actuati 00:00: every 6 [place] as on inhaler 00 (six) Medical hours as Branch needed for Wheezing or Shortness of Breath. albuterol 2021-05 Yes [id number] 2{puff} Inhale 2 [facility] 90 0-18 Puffs ity of mcg/actuati 00:00: every 6 [place] as on inhaler 00 (six) Medical hours as Branch needed for Wheezing or Shortness of Breath. albuterol 2021-05 Yes [id number] 2{puff} Inhale 2 [facility] 90 0-18 Puffs ity of mcg/actuati 00:00: every 6 [place] on inhaler 00 (six) Medical hours as Branch needed for Wheezing or Shortness of Breath. albuterol 2021-05 Yes [id number] 2{puff} Inhale 2 [facility] 90 0-18 Puffs ity of mcg/actuati 00:00: every 6 [place] as on inhaler 00 (six) Medical hours as Branch needed for Wheezing or Shortness of Breath. albuterol 2021-05 Yes [id number] 2{puff} Inhale 2 [facility] 90 0-18 Puffs ity of mcg/actuati 00:00: every 6 [place] as on inhaler 00 (six) Medical hours as Branch needed for Wheezing or Shortness of Breath. albuterol 2021-05 Yes [id number] 2{puff} Inhale 2 [facility] 90 0-18 Puffs ity of mcg/actuati 00:00: every 6 [place] as on inhaler 00 (six) Medical hours as Branch needed for Wheezing or Shortness of Breath. albuterol 2021-05 Yes [id number] 2{puff} Inhale 2 [facility] 90 0-18 Puffs ity of mcg/actuati 00:00: every 6 [place] as on inhaler 00 (six) Medical hours as Branch needed for Wheezing or Shortness of Breath. albuterol 2021-05 Yes [id number] 2{puff} Inhale 2 [facility] 90 0-18 Puffs ity of mcg/actuati 00:00: every 6 [place] as on inhaler 00 (six) Medical hours as Branch needed for Wheezing or Shortness of Breath. albuterol 2021-05 Yes [id number] 2{puff} Inhale 2 [facility] 90 0-18 Puffs ity of mcg/actuati 00:00: every 6 [place] as on inhaler 00 (six) Medical hours as Branch needed for Wheezing or Shortness of Breath. albuterol 2021-05 Yes [id number] 2{puff} Inhale 2 [facility] 90 0-18 Puffs ity of mcg/actuati 00:00: every 6 [place] as on inhaler 00 (six) Medical hours as Branch needed for Wheezing or Shortness of Breath. albuterol 2021-05 Yes [id number] 2{puff} Inhale 2 [facility] 90 0-18 Puffs ity of mcg/actuati 00:00: every 6 [place] as on inhaler 00 (six) Medical hours as Branch needed for Wheezing or Shortness of Breath. albuterol 2021-05 Yes [id number] 2{puff} Inhale 2 [facility] 90 0-18 Puffs ity of mcg/actuati 00:00: every 6 [place] as on inhaler 00 (six) Medical hours as Branch needed for Wheezing or Shortness of Breath. albuterol 2021-05 Yes [id number] 2{puff} Inhale 2 [facility] 90 0-18 Puffs ity of mcg/actuati 00:00: every 6 [place] as on inhaler 00 (six) Medical hours as Branch needed for Wheezing or Shortness of Breath. albuterol 2021-05 Yes [id number] 2{puff} Inhale 2 [facility] 90 0-18 Puffs ity of mcg/actuati 00:00: every 6 [place] on inhaler 00 (six) Medical hours as Branch needed for Wheezing or Shortness of Breath. albuterol 2021-05 Yes [id number] 2{puff} Inhale 2 [facility] 90 0-18 Puffs ity of mcg/actuati 00:00: every 6 [place] as on inhaler 00 (six) Medical hours as Branch needed for Wheezing or Shortness of Breath. albuterol 2021-05 Yes [id number] 2{puff} Inhale 2 [facility] 90 0-18 Puffs ity of mcg/actuati 00:00: every 6 [place] as on inhaler 00 (six) Medical hours as Branch needed for Wheezing or Shortness of Breath. albuterol 2021-05 Yes [id number] 2{puff} Inhale 2 [facility] 90 0-18 Puffs ity of mcg/actuati 00:00: every 6 [place] on inhaler 00 (six) Medical hours as Branch needed for Wheezing or Shortness of Breath. albuterol 2021-05 Yes [id number] 2{puff} Inhale 2 [facility] 90 0-18 Puffs ity of mcg/actuati 00:00: every 6 [place] on inhaler 00 (six) Medical hours as Branch needed for Wheezing or Shortness of Breath. albuterol 2021-05 Yes [id number] 2{puff} Inhale 2 [facility] 90 0-18 Puffs ity of mcg/actuati 00:00: every 6 [place] on inhaler 00 (six) Medical hours as Branch needed for Wheezing or Shortness of Breath. albuterol 2021-05 Yes [id number] 2{puff} Inhale 2 [facility] 90 0-18 Puffs ity of mcg/actuati 00:00: every 6 [place] on inhaler 00 (six) Medical hours as Branch needed for Wheezing or Shortness of Breath. albuterol 2021-05 Yes [id number] 2{puff} Inhale 2 [facility] 90 0-18 Puffs ity of mcg/actuati 00:00: every 6 [place] on inhaler 00 (six) Medical hours as Branch needed for Wheezing or Shortness of Breath. albuterol 2021-05 Yes [id number] 2{puff} Inhale 2 [facility] 90 0-18 Puffs ity of mcg/actuati 00:00: every 6 [place] as on inhaler 00 (six) Medical hours as Branch needed for Wheezing or Shortness of Breath. albuterol 2021-05 Yes [id number] 2{puff} Inhale 2 [facility] 90 0-18 Puffs ity of mcg/actuati 00:00: every 6 [place] on inhaler 00 (six) Medical hours as Branch needed for Wheezing or Shortness of Breath. albuterol 2021-05 Yes [id number] 2{puff} Inhale 2 [facility] 90 0-18 Puffs ity of mcg/actuati 00:00: every 6 [place] on inhaler 00 (six) Medical hours as Branch needed for Wheezing or Shortness of Breath. albuterol 2021-05 Yes [id number] 2{puff} Inhale 2 [facility] 90 0-18 Puffs ity of mcg/actuati 00:00: every 6 [place] on inhaler 00 (six) Medical hours as Branch needed for Wheezing or Shortness of Breath. albuterol 2021-05 Yes [id number] 2{puff} Inhale 2 [facility] 90 0-18 Puffs ity of mcg/actuati 00:00: every 6 [place] on inhaler 00 (six) Medical hours as Branch needed for Wheezing or Shortness of Breath. albuterol 2021-05 Yes [id number] 2{puff} Inhale 2 [facility] 90 0-18 Puffs ity of mcg/actuati 00:00: every 6 [place] on inhaler 00 (six) Medical hours as Branch needed for Wheezing or Shortness of Breath. albuterol 2021-05 Yes [id number] 2{puff} Inhale 2 [facility] 90 0-18 Puffs ity of mcg/actuati 00:00: every 6 [place] on inhaler 00 (six) Medical hours as Branch needed for Wheezing or Shortness of Breath. albuterol 2021-05 Yes [id number] 2{puff} Inhale 2 [facility] 90 0-18 Puffs ity of mcg/actuati 00:00: every 6 [place] on inhaler 00 (six) Medical hours as Branch needed for Wheezing or Shortness of Breath. albuterol 2021-05 Yes [id number] 2{puff} Inhale 2 [facility] 90 0-18 Puffs ity of mcg/actuati 00:00: every 6 [place] as on inhaler 00 (six) Medical hours as Branch needed for Wheezing or Shortness of Breath. albuterol 2021-05 Yes [id number] 2{puff} Inhale 2 [facility] 90 0-18 Puffs ity of mcg/actuati 00:00: every 6 [place] on inhaler 00 (six) Medical hours as Branch needed for Wheezing or Shortness of Breath. albuterol 2021-05 Yes [id number] 2{puff} Inhale 2 [facility] 90 0-18 Puffs ity of mcg/actuati 00:00: every 6 [place] on inhaler 00 (six) Medical hours as Branch needed for Wheezing or Shortness of Breath. albuterol 2021-05 Yes [id number] 2{puff} Inhale 2 [facility] 90 0-18 Puffs ity of mcg/actuati 00:00: every 6 [place] on inhaler 00 (six) Medical hours as Branch needed for Wheezing or Shortness of Breath. albuterol 2021-05 Yes [id number] 2{puff} Inhale 2 [facility] 90 0-18 Puffs ity of mcg/actuati 00:00: every 6 [place] on inhaler 00 (six) Medical hours as Branch needed for Wheezing or Shortness of Breath. albuterol 2021-05 Yes [id number] 2{puff} Inhale 2 [facility] 90 0-18 Puffs ity of mcg/actuati 00:00: every 6 [place] on inhaler 00 (six) Medical hours as Branch needed for Wheezing or Shortness of Breath. albuterol 2021-05 Yes [id number] 2{puff} Inhale 2 [facility] 90 0-18 Puffs ity of mcg/actuati 00:00: every 6 [place] as on inhaler 00 (six) Medical hours as Branch needed for Wheezing or Shortness of Breath. albuterol 2021-05 Yes [id number] 2{puff} Inhale 2 [facility] 90 0-18 Puffs ity of mcg/actuati 00:00: every 6 [place] on inhaler 00 (six) Medical hours as Branch needed for Wheezing or Shortness of Breath. albuterol 2021-05 Yes [id number] 2{puff} Inhale 2 [facility] 90 0-18 Puffs ity of mcg/actuati 00:00: every 6 [place] on inhaler 00 (six) Medical hours as Branch needed for Wheezing or Shortness of Breath. albuterol 2021-05 Yes [id number] 2{puff} Inhale 2 [facility] 90 0-18 Puffs ity of mcg/actuati 00:00: every 6 [place] on inhaler 00 (six) Medical hours as Branch needed for Wheezing or Shortness of Breath. albuterol 2021-05 Yes [id number] 2{puff} Inhale 2 [facility] 90 0-18 Puffs ity of mcg/actuati 00:00: every 6 [place] on inhaler 00 (six) Medical hours as Branch needed for Wheezing or Shortness of Breath. albuterol 2021-05 Yes [id number] 2{puff} Inhale 2 [facility] 90 0-18 Puffs ity of mcg/actuati 00:00: every 6 [place] as on inhaler 00 (six) Medical hours as Branch needed for Wheezing or Shortness of Breath. albuterol 2021-05 Yes [id number] 2{puff} Inhale 2 [facility] 90 0-18 Puffs ity of mcg/actuati 00:00: every 6 [place] as on inhaler 00 (six) Medical hours as Branch needed for Wheezing or Shortness of Breath. albuterol 2021-05 Yes [id number] 2{puff} Inhale 2 [facility] 90 0-18 Puffs ity of mcg/actuati 00:00: every 6 [place] as on inhaler 00 (six) Medical hours as Branch needed for Wheezing or Shortness of Breath. albuterol 2021-05 Yes [id number] 2{puff} Inhale 2 [facility] 90 0-18 Puffs ity of mcg/actuati 00:00: every 6 [place] as on inhaler 00 (six) Medical hours as Branch needed for Wheezing or Shortness of Breath. albuterol 2021-05 Yes [id number] 2{puff} Inhale 2 [facility] 90 0-18 Puffs ity of mcg/actuati 00:00: every 6 [place] as on inhaler 00 (six) Medical hours as Branch needed for Wheezing or Shortness of Breath. albuterol 2021-05 Yes [id number] 2{puff} Inhale 2 [facility] 90 0-18 Puffs ity of mcg/actuati 00:00: every 6 [place] as on inhaler 00 (six) Medical hours as Branch needed for Wheezing or Shortness of Breath. albuterol 2021-05 Yes [id number] 2{puff} Inhale 2 [facility] 90 0-18 Puffs [...] a 24 hour period. benzonatate 2021-05- No [id number] 200mg Take 1 [facility] 200 mg 0-18 10-26 capsule by ity of capsule 00:00: 04:59 mouth 3 [place] 00 :00 (three) Medical times Branch daily as needed for Cough for up to 7 days. benzonatate 2021-05- No [id number] 200mg Take 1 [facility] 200 mg 0-18 10-26 capsule by ity of capsule 00:00: 04:59 mouth 3 [place] 00 :00 (three) Medical times Branch daily as needed for Cough for up to 7 days. benzonatate 2021-05- No [id number] 200mg Take 1 [facility] 200 mg 0-18 10-26 capsule by ity of capsule 00:00: 04:59 mouth 3 [place] 00 :00 (three) Medical times Branch daily as needed for Cough for up to 7 days. benzonatate 2021-05- No [id number] 200mg Take 1 [facility] 200 mg 0-18 10-26 capsule by ity of capsule 00:00: 04:59 mouth 3 [place] 00 :00 (three) Medical times Branch daily as needed for Cough for up to 7 days. benzonatate 2021-05 No [id number] 200mg Take 1 [facility] 200 mg 003-07 capsule by ity of capsule 00:00: 04:59 mouth 3 [place] 00 :00 (three) Medical times [place] daily as needed for Cough for up to 7 days. benzonatate 2021-05 No [id number] 200mg Take 1 [facility] 200 mg 003-07 capsule by ity of capsule 00:00: 04:59 mouth 3 [place] 00 :00 (three) Medical times [place] daily as needed for Cough for up to 7 days. SUMAtriptan 2021-05- No [id number] 50mg Take 1 [facility] 50 mg 002-28 [id number] tablet by ity of tablet 00:00: 04:59 mouth [place] 00 :00 now for 1 Medical dose. [place] SUMAtriptan 2021-05 No [id number] 50mg Take 1 [facility] 50 mg 02-28 [...] IV ity of (BENADRYL) 06:30: 06:38 [place], [place] injection 00 :00 ONCE, 1 Medical 25 mg dose, On Branch Sat02/21/22 at 0130, STAT FENTanyl PF 2021-05 No 50ug 50 mcg, Un sushant (SUBLIMAZE 002-18 Slow IV ity o f (PF)) 20:30: 19:44 [place], [place] injection 00 :00 ONCE, 1 Medical 50 mcg dose, On Branch 02/18/22 at 1530, Routine ketorolac 2021-05- No 30mg 30 mg, Unive rs (TORADOL) 0- Slow IV ity of injection 20:15: 20:09 Push, [place] 30 mg 00 :00 ONCE, 1 Medical dose, On Branch 02/18/22 at 1515, [place] iopamidol 2021-05- No [id number] 60mL 60 mL, Un sushant (ISOVUE 0- Intravenou ity o f 370-500 mL) 19:30: 17:30 s, ONCE, 1 [place] injection 00 :00 dose, On Medica l 60 mL [facility] 02/18/22 at 1430, Routine proMETHazin 2021-05 No 12.5mg 12.5 mg, Univers e 02-18 IV ity of (PHENERGAN) 18:15: 18:19 Piggyback, [place] 12.5 mg in 00 :00 ONCE, 1 Medica l NaCl 0.9% dose, On Branch (NS) 50 mL [facility] 02/18/22 at piggyback 1315, [place] FENTanyl PF 2021-05 No 50ug 50 mcg, Un sushant (SUBLIMAZE 02-18 Slow IV ity o f (PF)) 18:00: 17:26 [place], [place] injection 00 :00 ONCE, 1 Medical 50 mcg dose, On Branch [facility] 02/18/22 at 1300, Routine ondansetron 2021-05 No 4mg 4 mg, Slow [facility] (ZOFRAN 02-18 IV [place], ity of (PF)) 17:15: 17:27 ONCE, 1 [place] injection 4 00 :00 dose, On Medi yessi mg [facility] 02/18/22 at 1215, [place] morpHINE (2 2021- [...] 00 :00 dose, On Medi yessi mg [facility] 01/18/22 Branch at 0830, [place] morpHINE [...] Branch at 0630, [place] iodixanoL 2021- No [id number] 80mL 80 mL, U nivers (VISIPAQUE 01-18 Intravenou it y of 270-150 mL) 11:21: 11:15 s, ONCE, 1 [place] injection 00 :00 dose, On Medica l 80 mL [facility] 01/18/22 Branch at 0630, Routine NaCl [...] Indication s: acute pain ondansetron 2022-0 Yes [id number] 4mg Take 1 [facility] 4 mg 9-08 [id number] tablet by ity of disintegrat 00:00: mouth [place] ing tablet 00 every 8 Medica l (eight) Branch hours as needed for Nausea and Vomiting (N/V). ibuprofen 2021-0 Yes [id number] 600mg Take 1 [facility] 600 mg 9-08 [id number] tablet by ity of tablet 00:00: mouth [place] 00 every 6 Medical (six) Branch hours as needed for Pain (scale 4-6). traMADoL 50 2021-0 Yes [id number] 50mg Take 1 Univ ers mg tablet 9-08 tablet by ity o f 00:00: mouth [place] 00 every 6 Medical (six) Branch hours as needed for Pain (scale 7-10). Indication s: acute pain ondansetron 2021-0 Yes [id number] 4mg Take 1 [facility] 4 mg 9-08 [id number] tablet by ity of disintegrat 00:00: mouth [place] ing tablet 00 every 8 Medica l (eight) Branch hours as needed for Nausea and Vomiting (N/V). ibuprofen 2021-0 Yes [id number] 600mg Take 1 [facility] 600 mg 9-08 [id number] tablet by ity of tablet 00:00: mouth [place] 00 every 6 Medical (six) Branch hours as needed for Pain (scale 4-6). traMADoL 50 2021-0 Yes [id number] 50mg Take 1 Univ ers mg tablet 9-08 tablet by ity o f 00:00: mouth [place] 00 every 6 Medical (six) Branch hours as needed for Pain (scale 7-10). Indication s: acute pain ondansetron 2021-0 Yes [id number] 4mg Take 1 [facility] 4 mg 9-08 [id number] tablet by ity of disintegrat 00:00: mouth [place] ing tablet 00 every 8 Medica l (eight) Branch hours as needed for Nausea and Vomiting (N/V). ibuprofen 2021-0 Yes [id number] 600mg Take 1 [facility] 600 mg 9-08 [id number] tablet by ity of tablet 00:00: mouth [place] 00 every 6 Medical (six) Branch hours as needed for Pain (scale 4-6). traMADoL 50 2021-0 Yes [id number] 50mg Take 1 Univ ers mg tablet 9-08 tablet by ity o f 00:00: mouth [place] 00 every 6 Medical (six) Branch hours as needed for Pain (scale 7-10). Indication s: acute pain ondansetron 2022-0 Yes [id number] 4mg Take 1 [facility] 4 mg 9-08 [id number] tablet by ity of disintegrat 00:00: mouth [place] ing tablet 00 every 8 Medica l (eight) Branch hours as needed for Nausea and Vomiting (N/V). ibuprofen 2022-0 Yes [id number] 600mg Take 1 [facility] 600 mg 9-08 [id number] tablet by ity of tablet 00:00: mouth [place] 00 every 6 Medical (six) Branch hours as needed for Pain (scale 4-6). traMADoL 50 2022-0 Yes [id number] 50mg Take 1 Univ ers mg tablet 9-08 tablet by ity o f 00:00: mouth [place] 00 every 6 Medical (six) Branch hours as needed for Pain (scale 7-10). Indication s: acute pain ondansetron 2022-0 Yes [id number] 4mg Take 1 [facility] 4 mg 9-08 [id number] tablet by ity of disintegrat 00:00: mouth [place] ing tablet 00 every 8 Medica l (eight) Branch hours as needed for Nausea and Vomiting (N/V). ibuprofen 2022-0 Yes [id number] 600mg Take 1 [facility] 600 mg 9-08 [id number] tablet by ity of tablet 00:00: mouth [place] 00 every 6 Medical (six) Branch hours as needed for Pain (scale 4-6). traMADoL 50 2022-0 Yes [id number] 50mg Take 1 Univ ers mg tablet 9-08 tablet by ity o f 00:00: mouth [place] 00 every 6 Medical (six) Branch hours as needed for Pain (scale 7-10). Indication s: acute pain ondansetron 2022-0 Yes [id number] 4mg Take 1 [facility] 4 mg 9-08 [id number] tablet by ity of disintegrat 00:00: mouth [place] ing tablet 00 every 8 Medica l (eight) Branch hours as needed for Nausea and Vomiting (N/V). ibuprofen 2022-0 Yes [id number] 600mg Take 1 [facility] 600 mg 9-08 [id number] tablet by ity of tablet 00:00: mouth [place] 00 every 6 Medical (six) Branch hours as needed for Pain (scale 4-6). traMADoL 50 2022-0 Yes [id number] 50mg Take 1 Univ ers mg tablet 9-08 tablet by ity o f 00:00: mouth [place] 00 every 6 Medical (six) Branch hours as needed for Pain (scale 7-10). Indication s: acute pain ondansetron 2021-0 Yes [id number] 4mg Take 1 Univers 4 mg - [id number] tablet by ity of disintegrat 00:00: mouth [place] ing tablet 00 every 8 Medica l (eight) Branch hours as needed for Nausea and Vomiting (N/V). ibuprofen 2021-0 Yes [id number] 600mg Take 1 [facility] 600 mg 9- [id number] tablet by ity of tablet 00:00: mouth [place] 00 every 6 Medical (six) Branch hours as needed for Pain (scale 4-6). traMADoL 50 2021-0 Yes [id number] 50mg Take 1 Univ ers mg tablet 9-08 tablet by ity o f 00:00: mouth [place] 00 every 6 Medical (six) Branch hours as needed for Pain (scale 7-10). Indication s: acute pain ondansetron 2021-0 Yes [id number] 4mg Take 1 [facility] 4 mg - [id number] tablet by ity of disintegrat 00:00: mouth [place] ing tablet 00 every 8 Medica l (eight) Branch hours as needed for Nausea and Vomiting (N/V). ibuprofen 2021-0 Yes [id number] 600mg Take 1 [facility] 600 mg - [id number] tablet by ity of tablet 00:00: mouth [...] s: acute pain ondansetron 2021-0 202- No [id number] 4mg Take 1 [facility] 4 mg -02-27 [id number] tablet by ity of disintegrat 00:00: 00:00 mouth [place] ing tablet 00 :00 every 8 Medica l (eight) Branch hours as needed for Nausea and Vomiting (N/V). ibuprofen 2021-0 2021- No [id number] 600mg Take 1 [facility] 600 mg 9-08 10-18 [id number] tablet by ity o f tablet 00:00: [...] Indication s: acute pain ondansetron 2021-2021- No [id number] 4mg Take 1 [facility] 4 mg 01-18 [id number] tablet by ity of disintegrat 00:00: 00:00 mouth [place] ing tablet 00 :00 every 8 Medica l (eight) Branch hours as needed for Nausea and Vomiting (N/V). ibuprofen 2021-2021- No [id number] 600mg Take 1 [facility] 600 mg 01-18 [id number] tablet by ity o f tablet 00:00: [...] Indication s: acute pain ondansetron 2021-2021- No [id number] 4mg Take 1 [facility] 4 mg 01-18 [id number] tablet by ity of disintegrat 00:00: 00:00 mouth [place] ing tablet 00 :00 every 8 Medica l (eight) Branch hours as needed for Nausea and Vomiting (N/V). ibuprofen 2021-2021- No [id number] 600mg Take 1 [facility] 600 mg 01-18 [id number] tablet by ity o f tablet 00:00: [...] Indication s: acute pain ondansetron 2021- No [id number] 4mg Take 1 [facility] 4 mg 01-18 [id number] tablet by ity of disintegrat 00:00: 00:00 mouth [place] ing tablet 00 :00 every 8 Medica l (eight) Branch hours as needed for Nausea and Vomiting (N/V). ibuprofen 2021- No [id number] 600mg Take 1 [facility] 600 mg 01-18 [id number] tablet by ity o f tablet 00:00: 00:00 mouth [place] 00 :00 every 6 Medical (six) Branch hours as needed for Pain (scale 4-6). predniSONE 2021- No [id number] 40mg Take 2 [facility] 20 mg 01-16 tablets by ity of tablet 00:00: 04:59 mouth in [place] 00 :00 the Medical morning Branch for 7 days. predniSONE 2021- No [id number] 40mg Take 2 [facility] 20 mg 01-16 tablets by ity of tablet 00:00: 04:59 mouth in [place] 00 :00 the Medical morning Branch for [...] at 0915, 1 mL proMETHazin 2021-0 Yes [id number] 25mg Take 1 Univers e 25 mg 9-05 tablet by ity of tablet 00:00: mouth [place] 00 every 6 Medical (six) Branch hours as needed for Nausea and Vomiting (N/V). proMETHazin 2021-0 Yes [id number] 25mg Take 1 Univers e 25 mg 9-05 tablet by ity of tablet 00:00: mouth [place] 00 every 6 Medical (six) Branch hours as needed for Nausea and Vomiting (N/V). proMETHazin 2021-0 Yes [id number] 25mg Take 1 Univers e 25 mg 9-05 tablet by ity of tablet 00:00: mouth [place] 00 every 6 Medical (six) Branch hours as needed for Nausea and Vomiting (N/V). proMETHazin 2022-0 Yes [id number] 25mg Take 1 Univers e 25 mg 9-05 tablet by ity of tablet 00:00: mouth [place] 00 every 6 Medical (six) Branch hours as needed for Nausea and Vomiting (N/V). proMETHazin 2-0 Yes [id number] 25mg Take 1 Univers e 25 mg 9-05 tablet by ity of tablet 00:00: mouth [place] 00 every 6 Medical (six) Branch hours as needed for Nausea and Vomiting (N/V). proMETHazin 0 Yes [id number] 25mg Take 1 Univers e 25 mg 9-05 tablet by ity of tablet 00:00: mouth [place] 00 every 6 Medical (six) Branch hours as needed for Nausea and Vomiting (N/V). proMETHazin 0 Yes [id number] 25mg Take 1 Univers e 25 mg 9-05 tablet by ity of tablet 00:00: mouth [place] 00 every 6 Medical (six) Branch hours as needed for Nausea and Vomiting (N/V). proMETHazin 0 Yes [id number] 25mg Take 1 Univers e 25 mg 9-05 tablet by ity of tablet 00:00: mouth [place] 00 every 6 Medical (six) Branch hours as needed for Nausea and Vomiting (N/V). proMETHazin 0 Yes [id number] 25mg Take 1 Univers e 25 mg 9-05 tablet by ity of tablet 00:00: mouth [place] 00 every 6 Medical (six) Branch hours as needed for Nausea and Vomiting (N/V). proMETHazin 2021- No [id number] 25mg Take 1 Univers e 25 mg 9-05 10-18 tablet by ity of tablet 00:00: 00:00 mouth [place] 00 :00 every 6 Medical (six) Branch hours as needed for Nausea and Vomiting (N/V). proMETHazin 0 2021- No [id number] 25mg Take 1 Univers e 25 mg 9-05 10-18 tablet by ity of tablet 00:00: 00:00 mouth [place] 00 :00 every 6 Medical (six) Branch hours as needed for Nausea and Vomiting (N/V). proMETHazin 0 2021- No [id number] 25mg Take 1 Univers e 25 mg 9-05 10-18 tablet by ity of tablet 00:00: 00:00 mouth [place] 00 :00 every 6 Medical (six) Branch hours as needed for Nausea and Vomiting (N/V). proMETHazin 2021-0 2021- No [id number] 25mg Take 1 Univers e 25 mg [...] IV ity of (BENADRYL) 23:45: 23:51 Push, [place] injection 00 :00 ONCE, 1 Medical 25 mg dose, On Branch [facility] 01/08/22 at 1845, STAT dexamethaso 2021- No 10mg 10 mg, Uni vers ne sod phos 01-08 Slow IV ity of PF 23:45: 23:50 [place], [place] injection 00 :00 ONCE, 1 Medical 10 mg dose, On Branch [facility] 01/08/22 at 1845, 1 mL ketorolac 2021- No 30mg 30 mg, Unive rs (TORADOL) 01-08 Slow IV ity of injection 23:45: 23:51 Push, [place] 30 mg 00 :00 ONCE, 1 Medical dose, On Branch [facility] 01/08/22 at 1845, [place] ondansetron Yes [id number] 4mg Take 1 Univers 4 mg 8-29 tablet by ity of disintegrat 00:00: mouth [place] ing tablet 00 every 8 Medica l (eight) Branch hours as needed for Nausea and Vomiting (N/V). acetaminoph 0 Yes [id number] 650mg Take 1 Univers en (TYLENOL 8-29 tablet by ity of ARTHRITIS 00:00: mouth [place] PAIN) 650 00 every 8 Medical mg CR (eight) Branch tablet hours as needed for Pain. ketorolac 0 Yes [id number] 10mg Take 1 U nivers 10 mg 8-29 tablet by ity of tablet 00:00: mouth [place] 00 every 6 Medical (six) Branch hours as needed for Pain (scale 4-6) or Pain (scale 7-10). metaxalone 2022-0 Yes [id number] 800mg Take 1 Univers (SKELAXIN) 8-29 tablet by ity of 800 mg 00:00: mouth in [place] tablet 00 the Medical morning Branch and 1 tablet at noon and 1 tablet in the evening. ondansetron 2022-0 Yes [id number] 4mg Take 1 Univers 4 mg 8-29 tablet by ity of disintegrat 00:00: mouth [place] ing tablet 00 every 8 Medica l (eight) Branch hours as needed for Nausea and Vomiting (N/V). acetaminoph 2022-0 Yes [id number] 650mg Take 1 Univers en (TYLENOL 8-29 tablet by ity of ARTHRITIS 00:00: mouth [place] PAIN) 650 00 every 8 Medical mg CR (eight) Branch tablet hours as needed for Pain. ketorolac 2022-0 Yes [id number] 10mg Take 1 U nivers 10 mg 8-29 tablet by ity of tablet 00:00: mouth [place] 00 every 6 Medical (six) Branch hours as needed for Pain (scale 4-6) or Pain (scale 7-10). metaxalone 2022-0 Yes [id number] 800mg Take 1 Univers (SKELAXIN) 8-29 tablet by ity of 800 mg 00:00: mouth in [place] tablet 00 the Medical morning Branch and 1 tablet at noon and 1 tablet in the evening. ondansetron 2022-0 Yes [id number] 4mg Take 1 Univers 4 mg 8-29 tablet by ity of disintegrat 00:00: mouth [place] ing tablet 00 every 8 Medica l (eight) Branch hours as needed for Nausea and Vomiting (N/V). acetaminoph 2022-0 Yes [id number] 650mg Take 1 Univers en (TYLENOL 8-29 tablet by ity of ARTHRITIS 00:00: mouth [place] PAIN) 650 00 every 8 Medical mg CR (eight) Branch tablet hours as needed for Pain. ketorolac 2022-0 Yes [id number] 10mg Take 1 U nivers 10 mg 8-29 tablet by ity of tablet 00:00: mouth [place] 00 every 6 Medical (six) Branch hours as needed for Pain (scale 4-6) or Pain (scale 7-10). metaxalone 2022-0 Yes [id number] 800mg Take 1 Univers (SKELAXIN) 8-29 tablet by ity of 800 mg 00:00: mouth in [place] tablet 00 the Medical morning Branch and 1 tablet at noon and 1 tablet in the evening. ondansetron 2022-0 Yes [id number] 4mg Take 1 Univers 4 mg 8-29 tablet by ity of disintegrat 00:00: mouth [place] ing tablet 00 every 8 Medica l (eight) Branch hours as needed for Nausea and Vomiting (N/V). acetaminoph 2022-0 Yes [id number] 650mg Take 1 Univers en (TYLENOL 8-29 tablet by ity of ARTHRITIS 00:00: mouth [place] PAIN) 650 00 every 8 Medical mg CR (eight) Branch tablet hours as needed for Pain. ketorolac 2022-0 Yes [id number] 10mg Take 1 U nivers 10 mg 8-29 tablet by ity of tablet 00:00: mouth [place] 00 every 6 Medical (six) Branch hours as needed for Pain (scale 4-6) or Pain (scale 7-10). metaxalone 2022-0 Yes [id number] 800mg Take 1 Univers (SKELAXIN) 8-29 tablet by ity of 800 mg 00:00: mouth in [place] tablet 00 the Medical morning Branch and 1 tablet at noon and 1 tablet in the evening. ondansetron 2022-0 Yes [id number] 4mg Take 1 Univers 4 mg 8-29 tablet by ity of disintegrat 00:00: mouth [place] ing tablet 00 every 8 Medica l (eight) Branch hours as needed for Nausea and Vomiting (N/V). acetaminoph 2022-0 Yes [id number] 650mg Take 1 Univers en (TYLENOL 8-29 tablet by ity of ARTHRITIS 00:00: mouth [place] PAIN) 650 00 every 8 Medical mg CR (eight) Branch tablet hours as needed for Pain. ketorolac 2022-0 Yes [id number] 10mg Take 1 [facility] 10 mg 8-29 tablet by ity of tablet 00:00: mouth [place] 00 every 6 Medical (six) Branch hours as needed for Pain (scale 4-6) or Pain (scale 7-10). metaxalone 2022-0 Yes [id number] 800mg Take 1 [facility] (SKELAXIN) 8-29 tablet by ity of 800 mg 00:00: mouth in [place] tablet 00 the Medical morning Branch and 1 tablet at noon and 1 tablet in the evening. ondansetron 2022-0 Yes [id number] 4mg Take 1 [facility] 4 mg 8-29 tablet by ity of disintegrat 00:00: mouth [place] ing tablet 00 every 8 Medica l (eight) Branch hours as needed for Nausea and Vomiting (N/V). acetaminoph 2022-0 Yes [id number] 650mg Take 1 [facility] en (TYLENOL 8-29 tablet by ity of ARTHRITIS 00:00: mouth [place] PAIN) 650 00 every 8 Medical mg CR (eight) Branch tablet hours as needed for Pain. ketorolac 2022-0 Yes [id number] 10mg Take 1 [facility] 10 mg 8-29 tablet by ity of tablet 00:00: mouth [place] 00 every 6 Medical (six) Branch hours as needed for Pain (scale 4-6) or Pain (scale 7-10). metaxalone 2021-0 Yes [id number] 800mg Take 1 [facility] (SKELAXIN) 8-29 tablet by ity of 800 mg 00:00: mouth in [place] tablet 00 the Medical morning Branch and 1 tablet at noon and 1 tablet in the evening. ondansetron 2021-0 Yes [id number] 4mg Take 1 [facility] 4 mg 8-29 tablet by ity of disintegrat 00:00: mouth [place] ing tablet 00 every 8 Medica l (eight) Branch hours as needed for Nausea and Vomiting (N/V). acetaminoph 2-0 Yes [id number] 650mg Take 1 [facility] en (TYLENOL 8-29 tablet by ity of ARTHRITIS 00:00: mouth [place] PAIN) 650 00 every 8 Medical mg CR (eight) Branch tablet hours as needed for Pain. ketorolac 2022-0 Yes [id number] 10mg Take 1 [facility] 10 mg 8-29 tablet by ity of tablet 00:00: mouth [place] 00 every 6 Medical (six) Branch hours as needed for Pain (scale 4-6) or Pain (scale 7-10). metaxalone 2022-0 Yes [id number] 800mg Take 1 [facility] (SKELAXIN) 8-29 tablet by ity of 800 mg 00:00: mouth in [place] tablet 00 the Medical morning Branch and 1 tablet at noon and 1 tablet in the evening. ondansetron 2022-0 Yes [id number] 4mg Take 1 [facility] 4 mg 8-29 tablet by ity of disintegrat 00:00: mouth [place] ing tablet 00 every 8 Medica l (eight) Branch hours as needed for Nausea and Vomiting (N/V). acetaminoph 2022-0 Yes [id number] 650mg Take 1 [facility] en (TYLENOL 8-29 tablet by ity of ARTHRITIS 00:00: mouth [place] PAIN) 650 00 every 8 Medical mg CR (eight) Branch tablet hours as needed for Pain. ketorolac 2022-0 Yes [id number] 10mg Take 1 [facility] 10 mg 8-29 tablet by ity of tablet 00:00: mouth [place] 00 every 6 Medical (six) Branch hours as needed for Pain (scale 4-6) or Pain (scale 7-10). metaxalone 2022-0 Yes [id number] 800mg Take 1 [facility] (SKELAXIN) 8-29 tablet by ity of 800 mg 00:00: mouth in [place] tablet 00 the Medical morning Branch and 1 tablet at noon and 1 tablet in the evening. ondansetron 2-0 Yes [id number] 4mg Take 1 [facility] 4 mg 8-29 tablet by ity of disintegrat 00:00: mouth [place] ing tablet 00 every 8 Medica l (eight) Branch hours as needed for Nausea and Vomiting (N/V). acetaminoph 2-0 Yes [id number] 650mg Take 1 [facility] en (TYLENOL 8-29 tablet by ity of ARTHRITIS 00:00: mouth [place] PAIN) 650 00 every 8 Medical mg CR (eight) Branch tablet hours as needed for Pain. ketorolac 2022-0 Yes [id number] 10mg Take 1 [facility] 10 mg 8-29 tablet by ity of tablet 00:00: mouth [place] 00 every 6 Medical (six) Branch hours as needed for Pain (scale 4-6) or Pain (scale 7-10). metaxalone 2022-0 Yes [id number] 800mg Take 1 [facility] (SKELAXIN) 8-29 tablet by ity of 800 mg 00:00: mouth in [place] tablet 00 the Medical morning Branch and 1 tablet at noon and 1 tablet in the evening. ondansetron 2021-0 Yes [id number] 4mg Take 1 [facility] 4 mg 8-29 tablet by ity of disintegrat 00:00: mouth [place] ing tablet 00 every 8 Medica l (eight) Branch hours as needed for Nausea and Vomiting (N/V). acetaminoph 2021-0 Yes [id number] 650mg Take 1 [facility] en (TYLENOL 8-29 tablet by ity of ARTHRITIS 00:00: mouth [place] PAIN) 650 00 every 8 Medical mg CR (eight) Branch tablet hours as needed for Pain. ketorolac 2021-0 Yes [id number] 10mg Take 1 [facility] 10 mg 8-29 tablet by ity of tablet 00:00: mouth [place] 00 every 6 Medical (six) Branch hours as needed for Pain (scale 4-6) or Pain (scale 7-10). metaxalone 2021-0 Yes [id number] 800mg Take 1 [facility] (SKELAXIN) 8-29 tablet by ity of 800 mg 00:00: mouth in [place] tablet 00 the Medical morning Branch and 1 tablet at noon and 1 tablet in the evening. acetaminoph 2021-0 Yes [id number] 650mg Take 1 [facility] en (TYLENOL 8-29 tablet by ity of ARTHRITIS 00:00: mouth [place] PAIN) 650 00 every 8 Medical mg CR (eight) Branch tablet hours as needed for Pain. acetaminoph 2021-0 Yes [id number] 650mg Take 1 [facility] en (TYLENOL 8-29 tablet by ity of ARTHRITIS 00:00: mouth [place] PAIN) 650 00 every 8 Medical mg CR (eight) Branch tablet hours as needed for Pain. acetaminoph 2021-0 Yes [id number] 650mg Take 1 [facility] en (TYLENOL 8-29 tablet by ity of ARTHRITIS 00:00: mouth [place] PAIN) 650 00 every 8 Medical mg CR (eight) Branch tablet hours as needed for Pain. acetaminoph 2021-0 Yes [id number] 650mg Take 1 [facility] en (TYLENOL 8-29 tablet by ity of ARTHRITIS 00:00: mouth [place] PAIN) 650 00 every 8 Medical mg CR (eight) Branch tablet hours as needed for Pain. acetaminoph 2021-0 Yes [id number] 650mg Take 1 [facility] en (TYLENOL 8-29 tablet by ity of ARTHRITIS 00:00: mouth [place] PAIN) 650 00 every 8 Medical mg CR (eight) Branch tablet hours as needed for Pain. acetaminoph 0 Yes [id number] 650mg Take 1 [facility] en (TYLENOL 8-29 tablet by ity of ARTHRITIS 00:00: mouth [place] PAIN) 650 00 every 8 Medical mg CR (eight) Branch tablet hours as needed for Pain. acetaminoph 0 Yes [id number] 650mg Take 1 [facility] en (TYLENOL 8-29 tablet by ity of ARTHRITIS 00:00: mouth [place] PAIN) 650 00 every 8 Medical mg CR (eight) Branch tablet hours as needed for Pain. acetaminoph 0 Yes [id number] 650mg Take 1 [facility] en (TYLENOL 8-29 tablet by ity of ARTHRITIS 00:00: mouth [place] PAIN) 650 00 every 8 Medical mg CR (eight) Branch tablet hours as needed for Pain. acetaminoph 0 Yes [id number] 650mg Take 1 [facility] en (TYLENOL 8-29 tablet by ity of ARTHRITIS 00:00: mouth [place] PAIN) 650 00 every 8 Medical mg CR (eight) Branch tablet hours as needed for Pain. acetaminoph 0 Yes [id number] 650mg Take 1 [facility] en (TYLENOL 8-29 tablet by ity of ARTHRITIS 00:00: mouth [place] PAIN) 650 00 every 8 Medical mg CR (eight) Branch tablet hours as needed for Pain. acetaminoph 0 Yes [id number] 650mg Take 1 [facility] en (TYLENOL 8-29 tablet by ity of ARTHRITIS 00:00: mouth [place] PAIN) 650 00 every 8 Medical mg CR (eight) Branch tablet hours as needed for Pain. acetaminoph 0 Yes [id number] 650mg Take 1 [facility] en (TYLENOL 8-29 tablet by ity of ARTHRITIS 00:00: mouth [place] PAIN) 650 00 every 8 Medical mg CR (eight) Branch tablet hours as needed for Pain. acetaminoph 0 Yes [id number] 650mg Take 1 [facility] en (TYLENOL 8-29 tablet by ity of ARTHRITIS 00:00: mouth [place] PAIN) 650 00 every 8 Medical mg CR (eight) Branch tablet hours as needed for Pain. acetaminoph 0 Yes [id number] 650mg Take 1 [facility] en (TYLENOL 8-29 tablet by ity of ARTHRITIS 00:00: mouth [place] PAIN) 650 00 every 8 Medical mg CR (eight) Branch tablet hours as needed for Pain. acetaminoph Yes [id number] 650mg Take 1 [facility] en (TYLENOL 8-29 tablet by ity of ARTHRITIS 00:00: mouth [place] PAIN) 650 00 every 8 Medical mg CR (eight) Branch tablet hours as needed for Pain. acetaminoph Yes [id number] 650mg Take 1 [facility] en (TYLENOL 8-29 tablet by ity of ARTHRITIS 00:00: mouth [place] PAIN) 650 00 every 8 Medical mg CR (eight) Branch tablet hours as needed for Pain. acetaminoph Yes [id number] 650mg Take 1 [facility] en (TYLENOL 8-29 tablet by ity of ARTHRITIS 00:00: mouth [place] PAIN) 650 00 every 8 Medical mg CR (eight) Branch tablet hours as needed for Pain. acetaminoph 2021- No [id number] 650mg Take 1 [facility] en (TYLENOL 8-29 11-26 tablet by it y of ARTHRITIS 00:00: 00:00 mouth [place] PAIN) 650 00 :00 every 8 Medical mg CR (eight) Branch tablet hours as needed for Pain. ondansetron 2021- No [id number] 4mg Take 1 [facility] 4 mg 8-29 10-18 tablet by ity of disintegrat 00:00: 00:00 mouth [place] ing tablet 00 :00 every 8 Medica l (eight) Branch hours as needed for Nausea and Vomiting (N/V). ketorolac 2021- No [id number] 10mg Take 1 [facility] 10 mg 8-29 10-18 tablet by ity of tablet 00:00: 00:00 mouth [place] 00 :00 every 6 Medical (six) Branch hours as needed for Pain (scale 4-6) or Pain (scale 7-10). metaxalone 2021- No [id number] 800mg Take 1 [facility] (SKELAXIN) 8-29 10-18 tablet by ity of 800 mg 00:00: 00:00 mouth in [place] tablet 00 :00 the Medical morning Branch and 1 tablet at noon and 1 tablet in the evening. ondansetron 2- No [id number] 4mg Take 1 [facility] 4 mg 8-29 10-18 tablet by ity of disintegrat 00:00: 00:00 [place] tablet 00 :00 every 8 Medica l (eight) Branch hours as needed for Nausea and Vomiting (N/V). ketorolac 2022-0 2022- No [id number] 10mg Take 1 [facility] 10 mg 8-29 10-18 tablet by ity of tablet 00:00: 00:00 mouth [place] 00 :00 every 6 Medical (six) Branch hours as needed for Pain (scale 4-6) or Pain (scale 7-10). metaxalone 2022-0 2022- No [id number] 800mg Take 1 [facility] (SKELAXIN) 8-29 10-18 tablet by ity of 800 mg 00:00: 00:00 mouth in [place] tablet 00 :00 the Medical morning Branch and 1 tablet at noon and 1 tablet in the evening. ondansetron 2022-0 2022- No [id number] 4mg Take 1 [facility] 4 mg 8-29 10-18 tablet by ity of disintegrat 00:00: 00:00 mouth [place] tablet 00 :00 every 8 Medica l (eight) Branch hours as needed for Nausea and Vomiting (N/V). ketorolac 2022-0 2- No [id number] 10mg Take 1 [facility] 10 mg 8-29 10-18 tablet by ity of tablet 00:00: 00:00 mouth [place] 00 :00 every 6 Medical (six) Branch hours as needed for Pain (scale 4-6) or Pain (scale 7-10). metaxalone 2022-0 2022- No [id number] 800mg Take 1 [facility] (SKELAXIN) 8-29 10-18 tablet by ity of 800 mg 00:00: 00:00 mouth in [place] tablet 00 :00 the Medical morning Branch and 1 tablet at noon and 1 tablet in the evening. ondansetron 2022-0 2022- No [id number] 4mg Take 1 [facility] 4 mg 8-29 10-18 tablet by ity of disintegrat 00:00: 00:00 mouth [place] tablet 00 :00 every 8 Medica l (eight) Branch hours as needed for Nausea and Vomiting (N/V). ketorolac 2-0 2021- No [id number] 10mg Take 1 [facility] 10 mg 8-29 10-18 tablet by ity of tablet 00:00: 00:00 mouth [place] 00 :00 every 6 Medical (six) Branch hours as needed for Pain (scale 4-6) or Pain (scale 7-10). metaxalone 2021-0 2021- No [id number] 800mg Take 1 [facility] (SKELAXIN) 8-29 10-18 [...] mouth. ity of supp. no.8 15:08: 00:00 [place] (TRAZAMINE 46 :00 Medical ORAL) Branch diphenhydrA 0 Yes 25mg Take 25 mg [facility] MINE 25 mg 12-12 by mouth ity o f capsule 13:03: every 6 [place] 04 (six) Medical hours as Branch needed for Allergies. carbamazepi 0 Yes Take by [facility] vers ne 8-02 mouth. ity of (TEGRETOL 13:03: [place] ORAL) 04 Medical Branch citalopram 2021-0 Yes Take by [facility] ers hydrobromid 802 mouth. ity of e 13:03: [place] (CITALOPRAM 04 Medical ORAL) Branch ALBUTEROL 0 Yes [facility] INHALE 8-02 ity of 13:03: [place] [address] Medical Branch diphenhydrA 0 Yes 25mg Take 25 mg [facility] MINE 25 mg 802 by mouth ity o f capsule 13:03: every 6 [place] [address] (six) Medical hours as Branch needed for Allergies. carbamazepi 0 Yes Take by [facility] vers ne 8-02 mouth. ity of (TEGRETOL 13:03: [place] ORAL) Medical Branch citalopram Yes Take by [facility] ers hydrobromid 8-02 mouth. ity of e 13:03: [place] (CITALOPRAM 04 Medical ORAL) Branch ALBUTEROL Yes [facility] INHALE 8- ity of 13:03: [place] [address] Medical Branch diphenhydrA Yes 25mg Take 25 mg [facility] MINE 25 mg 802 by mouth ity o f capsule 13:03: every 6 [place] [address] (six) Medical hours as Branch needed for Allergies. carbamazepi 0 Yes Take by [facility] vers ne 8-02 mouth. ity of (TEGRETOL 13:03: [place] ORAL) Medical Branch citalopram Yes Take by [facility] ers hydrobromid 8-02 mouth. ity of e 13:03: [place] (CITALOPRAM 04 Medical ORAL) Branch ALBUTEROL Yes [facility] INHALE 8- ity of 13:03: [place] [address] Medical Branch diphenhydrA Yes 25mg Take 25 mg [facility] MINE 25 mg 12-12 by mouth ity o f capsule 13:03: every 6 [place] [address] (six) Medical hours as Branch needed for Allergies. carbamazepi 0 Yes Take by [facility] vers ne 8-02 mouth. ity of (TEGRETOL 13:03: [place] ORAL) 04 Medical Branch citalopram Yes Take by [facility] ers hydrobromid 8-02 mouth. ity of e 13:03: [place] (CITALOPRAM 04 Medical ORAL) Branch ALBUTEROL 0 Yes [facility] INHALE 802 ity of 13:03: [place] [address] Medical Branch diphenhydrA Yes 25mg Take 25 mg [facility] MINE 25 mg 8-02 by mouth ity o f capsule 13:03: every 6 [place] [address] (six) Medical hours as Branch needed for Allergies. carbamazepi 0 Yes Take by [facility] vers ne 8-02 mouth. ity of (TEGRETOL 13:03: [place] ORAL) 04 Medical Branch citalopram Yes Take by [facility] ers hydrobromid 8-02 mouth. ity of e 13:03: [place] (CITALOPRAM 04 Medical ORAL) Branch ALBUTEROL Yes [facility] INHALE 8-02 ity of 13:03: Medical Branch diphenhydrA Yes 25mg Take 25 mg [facility] MINE 25 mg 8-02 by mouth ity o f capsule 13:03: every 6 [place] [address] (six) Medical hours as Branch needed for Allergies. carbamazepi Yes Take by [facility] vers ne 8-02 mouth. ity of (TEGRETOL 13:03: [place] ORAL) Medical Branch citalopram Yes Take by [facility] ers hydrobromid 8-02 mouth. ity of e 13:03: [place] (CITALOPRAM 04 Medical ORAL) Branch ALBUTEROL Yes [facility] INHALE 8-02 ity of 13:03: [place] [address] Medical Branch diphenhydrA Yes 25mg Take 25 mg [facility] MINE 25 mg 8 by mouth ity o f capsule 13:03: every 6 [place] [address] (six) Medical hours as Branch needed for Allergies. carbamazepi Yes Take by [facility] vers ne 8-02 mouth. ity of (TEGRETOL 13:03: [place] ORAL) Medical Branch citalopram Yes Take by [facility] ers hydrobromid 8-02 mouth. ity of e 13:03: [place] (CITALOPRAM 04 Medical ORAL) Branch ALBUTEROL Yes [facility] INHALE 8-02 ity of 13:03: [place] [address] Medical Branch diphenhydrA 0 Yes 25mg Take 25 mg [facility] MINE 25 mg 802 by mouth ity o f capsule 13:03: every 6 [place] [address] (six) Medical hours as Branch needed for Allergies. carbamazepi 0 Yes Take by [facility] vers ne 8-02 mouth. ity of (TEGRETOL 13:03: [place] ORAL) 04 Medical Branch citalopram Yes Take by [facility] ers hydrobromid 8-02 mouth. ity of e 13:03: [place] (CITALOPRAM 04 Medical ORAL) Branch ALBUTEROL Yes [facility] INHALE 802 ity of 13:03: [place] [address] Medical Branch diphenhydrA Yes 25mg Take 25 mg [facility] MINE 25 mg 8-02 by mouth ity o f capsule 13:03: every 6 [place] [address] (six) Medical hours as Branch needed for Allergies. carbamazepi 0 Yes Take by [facility] vers ne 8-02 mouth. ity of (TEGRETOL 13:03: [place] ORAL) Medical Branch citalopram Yes Take by [facility] ers hydrobromid 8-02 mouth. ity of e 13:03: [place] (CITALOPRAM 04 Medical ORAL) Branch ALBUTEROL Yes [facility] INHALE 8 ity of 13:03: [place] [address] Medical Branch diphenhydrA Yes 25mg Take 25 mg [facility] MINE 25 mg 802 by mouth ity o f capsule 13:03: every 6 [place] [address] (six) Medical hours as Branch needed for Allergies. carbamazepi Yes Take by [facility] vers ne 8-02 mouth. ity of (TEGRETOL 13:03: [place] ORAL) Medical Branch citalopram Yes Take by [facility] ers hydrobromid 8-02 mouth. ity of e 13:03: [place] (CITALOPRAM 04 Medical ORAL) Branch ALBUTEROL Yes [facility] INHALE 8 ity of 13:03: [place] [address] Medical Branch diphenhydrA Yes 25mg Take 25 mg [facility] MINE 25 mg 8-02 by mouth ity o f capsule 13:03: every 6 [place] [address] (six) Medical hours as Branch needed for Allergies. carbamazepi 0 Yes Take by [facility] vers ne 8-02 mouth. ity of (TEGRETOL 13:03: [place] ORAL) 04 Medical Branch citalopram Yes Take by [facility] ers hydrobromid 8-02 mouth. ity of e 13:03: [place] (CITALOPRAM 04 Medical ORAL) Branch ALBUTEROL Yes [facility] INHALE 8-02 ity of 13:03: [address] ALBUTEROL Yes [facility] INHALE 8-02 ity of 13:03: [address] ALBUTEROL Yes [facility] INHALE 8-02 ity of 13:03: [address] ALBUTEROL Yes [facility] INHALE 8-02 ity of 13:03: [address] ALBUTEROL Yes [facility] INHALE 8-02 ity of 13:03: [address] ALBUTEROL Yes [facility] INHALE 8-02 ity of 13:03: [address] ALBUTEROL Yes [facility] INHALE 8-02 ity of 13:03: [address] ALBUTEROL Yes [facility] INHALE 8-02 ity of 13:03: [address] ALBUTEROL Yes [facility] INHALE 8-02 ity of 13:03: [address] ALBUTEROL Yes [facility] INHALE 8-02 ity of 13:03: [address] ALBUTEROL Yes [facility] INHALE 8-02 ity of 13:03: [address] ALBUTEROL Yes [facility] INHALE 8-02 ity of 13:03: [address] ALBUTEROL Yes [facility] INHALE 8-02 ity of 13:03: [address] ALBUTEROL Yes [facility] INHALE 8-02 ity of 13:03: [address] ALBUTEROL Yes [facility] INHALE 8-02 ity of 13:03: [address] traZODone Yes [id number] 50mg Take 1 U nivers 50 mg 8-02 tablet by ity of tablet 00:00: mouth at [place] 00 bedtime. Medical Branch SERTraline Yes [id number] 50mg Take 1 [facility] (ZOLOFT) 50 8-02 tablet by ity of mg tablet 00:00: mouth [place] 00 the Medical morning. Branch traZODone Yes [id number] 50mg Take 1 U nivers 50 mg 8-02 tablet by ity of tablet 00:00: mouth at [place] 00 bedtime. Medical Branch SERTraline Yes 50mg Take 1 [facility] (ZOLOFT) 50 8-02 tablet by ity of mg tablet 00:00: mouth [place] 00 the Medical morning. Branch traZODone 0 Yes [id number] 50mg Take 1 U nivers 50 mg 8-02 tablet by ity of tablet 00:00: mouth at [place] 00 bedtime. Medical Branch SERTraline 0 Yes 50mg Take 1 [facility] (ZOLOFT) 50 8-02 tablet by ity of mg tablet 00:00: mouth [place] 00 the Medical morning. Branch traZODone 0 Yes [id number] 50mg Take 1 U nivers 50 mg 8-02 tablet by ity of tablet 00:00: mouth at [place] 00 bedtime. Medical Branch SERTraline 0 Yes 50mg Take 1 [facility] (ZOLOFT) 50 8-02 tablet by ity of mg tablet 00:00: mouth [place] 00 the Medical morning. Branch traZODone 0 Yes [id number] 50mg Take 1 U nivers 50 mg 8-02 tablet by ity of tablet 00:00: mouth at [place] 00 bedtime. Medical Branch SERTraline 0 Yes 50mg Take 1 [facility] (ZOLOFT) 50 8-02 tablet by ity of mg tablet 00:00: mouth [place] 00 the Medical morning. Branch traZODone 0 Yes [id number] 50mg Take 1 U nivers 50 mg 8-02 tablet by ity of tablet 00:00: mouth at [place] 00 bedtime. Medical Branch SERTraline 0 Yes [id number] 50mg Take 1 [facility] (ZOLOFT) 50 8-02 tablet by ity of mg tablet 00:00: mouth in [place] 00 the Medical morning. Branch traZODone 0 Yes [id number] 50mg Take 1 U nivers 50 mg 8-02 tablet by ity of tablet 00:00: mouth at [place] 00 bedtime. Medical Branch SERTraline Yes [id number] 50mg Take 1 [facility] (ZOLOFT) 50 8-02 tablet by ity of mg tablet 00:00: mouth in [place] 00 the Medical morning. Branch traZODone Yes [id number] 50mg Take 1 U nivers 50 mg 8-02 tablet by ity of tablet 00:00: mouth at [place] 00 bedtime. Medical Branch SERTraline Yes [id number] 50mg Take 1 [facility] (ZOLOFT) 50 8-02 tablet by ity of mg tablet 00:00: mouth [place] 00 the Medical morning. Branch traZODone 0 Yes [id number] 50mg Take 1 U nivers 50 mg 8-02 tablet by ity of tablet 00:00: mouth at [place] 00 bedtime. Medical Branch SERTraline Yes [id number] 50mg Take 1 [facility] (ZOLOFT) 50 8-02 tablet by ity of mg tablet 00:00: mouth in [place] 00 the Medical morning. Branch traZODone Yes [id number] 50mg Take 1 U nivers 50 mg 8-02 tablet by ity of tablet 00:00: mouth at [place] 00 bedtime. Medical Branch SERTraline Yes [id number] 50mg Take 1 [facility] (ZOLOFT) 50 8-02 tablet by ity of mg tablet 00:00: mouth in [place] 00 the Medical morning. Branch traZODone Yes [id number] 50mg Take 1 U nivers 50 mg 8-02 tablet by ity of tablet 00:00: mouth at [place] 00 bedtime. Medical Branch SERTraline Yes [id number] 50mg Take 1 [facility] (ZOLOFT) 50 8-02 tablet by ity of mg tablet 00:00: mouth [place] 00 the Medical morning. Branch traZODone 2021- No [id number] 50mg Take 1 [facility] 50 mg 8-02 10-18 tablet by ity of tablet 00:00: 00:00 mouth at [place] 00 :00 bedtime. Medical Branch SERTraline 2021- No [id number] 50mg Take 1 [facility] (ZOLOFT) 50 8-02 10-18 tablet by it y of mg tablet 00:00: 00:00 mouth in [place] as 00 :00 the Medical morning. Branch traZODone 2021- No [id number] 50mg Take 1 [facility] 50 mg 8-02 10-18 tablet by ity of tablet 00:00: 00:00 mouth at [place] 00 :00 bedtime. Medical Branch SERTraline 2021- No [id number] 50mg Take 1 [facility] (ZOLOFT) 50 8- 10-18 tablet by it y of mg tablet 00:00: 00:[address] [facility] [place] as 00 :00 the Medical morning. Branch traZODone 2021- No [id number] 50mg Take 1 [facility] 50 mg 8- 10-18 tablet by ity of tablet 00:00: 00:00 mouth at [place] 00 :00 bedtime. Medical Branch SERTraline 2021- No [id number] 50mg Take 1 [facility] (ZOLOFT) 50 8- 10-18 tablet by it y of mg tablet 00:00: 00:[address] [facility] [place] as 00 :00 the Medical morning. Branch traZODone 2021- No [id number] 50mg Take 1 [facility] 50 mg 8- 10-18 tablet by ity of tablet 00:00: 00:00 mouth at [place] 00 :00 bedtime. Medical Branch SERTraline 2021- No [id number] 50mg Take 1 [facility] (ZOLOFT) 50 8- 10-18 tablet by it y of mg tablet 00:00: 00:[address] [facility] [place] as 00 :00 the Medical morning. Branch sulfamethox 2021- No [id number] 1{tbl} Take 1 [facility] azole-trime - 08-06 tablet by it y of thoprim 00:00: 04:59 mouth in [place] (BACTRIM 00 :00 the Medical DS) 800-160 morning Branc h mg per and 1 tablet tablet in the evening. Do all this for 3 days. ibuprofen Yes [id number] 600mg Take 1 [facility] 600 mg 7-15 tablet by ity of tablet 00:00: mouth [place] [address] every 6 Medical (six) Branch hours as needed for Pain (scale 4-6). ibuprofen 0 Yes [id number] 600mg Take 1 [facility] 600 mg 7-15 tablet by ity of tablet 00:00: mouth [place] [address] every 6 Medical (six) Branch hours as needed for Pain (scale 4-6). ibuprofen 2021-0 Yes [id number] 600mg Take 1 [facility] 600 mg 7-15 tablet by ity of tablet 00:00: mouth [place] 00 every 6 Medical (six) Branch hours as needed for Pain (scale 4-6). ibuprofen 2022-0 Yes [id number] 600mg Take 1 [facility] 600 mg 7-15 tablet by ity of tablet 00:00: mouth [place] 00 every 6 Medical (six) Branch hours as needed for Pain (scale 4-6). ibuprofen 2022-0 Yes [id number] 600mg Take 1 [facility] 600 mg 7-15 tablet by ity of tablet 00:00: mouth [place] 00 every 6 Medical (six) Branch hours as needed for Pain (scale 4-6). ibuprofen 2022-0 Yes [id number] 600mg Take 1 [facility] 600 mg 7-15 tablet by ity of tablet 00:00: mouth [place] 00 every 6 Medical (six) Branch hours as needed for Pain (scale 4-6). ibuprofen 2022-0 Yes [id number] 600mg Take 1 [facility] 600 mg 7-15 tablet by ity of tablet 00:00: mouth [place] 00 every 6 Medical (six) Branch hours as needed for Pain (scale 4-6). ibuprofen 2022-0 Yes [id number] 600mg Take 1 [facility] 600 mg 7-15 tablet by ity of tablet 00:00: mouth [place] 00 every 6 Medical (six) Branch hours as needed for Pain (scale 4-6). ibuprofen 2022-0 Yes [id number] 600mg Take 1 [facility] 600 mg 7-15 tablet by ity of tablet 00:00: mouth [place] 00 every 6 Medical (six) Branch hours as needed for Pain (scale 4-6). ibuprofen 2022-0 Yes [id number] 600mg Take 1 [facility] 600 mg 7-15 tablet by ity of tablet 00:00: mouth [place] 00 every 6 Medical (six) Branch hours as needed for Pain (scale 4-6). ibuprofen 2022-0 Yes [id number] 600mg Take 1 [facility] 600 mg 7-15 tablet by ity of tablet 00:00: mouth [place] 00 every 6 Medical (six) Branch hours as needed for Pain (scale 4-6). ibuprofen 2022-0 2022- No [id number] 600mg Take 1 [facility] 600 mg 7-15 10-18 tablet by ity of tablet 00:00: 00:00 mouth [place] 00 :00 every 6 Medical (six) Branch hours as needed for Pain (scale 4-6). ibuprofen 2021-2021- No [id number] 600mg Take 1 [facility] 600 mg 7-15 10-18 tablet by ity of tablet 00:00: 00:00 mouth [place] 00 :00 every 6 Medical (six) Branch hours as needed for Pain (scale 4-6). ibuprofen 2021-2021- No [id number] 600mg Take 1 [facility] 600 mg 7-15 10-18 tablet by ity of tablet 00:00: 00:00 mouth [place] 00 :00 every 6 Medical (six) Branch hours as needed for Pain (scale 4-6). ibuprofen 2021-2021- No [id number] 600mg Take 1 [facility] 600 mg 7-15 10-18 tablet by ity of tablet 00:00: 00:00 mouth [place] 00 :00 every 6 Medical (six) Branch hours as needed for Pain (scale 4-6). ibuprofen 2021-2021- No [id number] 600mg Take 1 [facility] 600 mg 7-15 [...] Indication s: acute pain bromphenira 2021-0 Yes [id number] 5mL Take 5 mL [facility] mine-pseudo 11-18 by mouth 4 it y of ephedrine-D 00:00: (four) [place] [facility] (BROMFED 00 times Medical DM) 2-30-10 daily as Bran ch mg/5 mL needed for syrup Congestion /Allergies or Cough. naproxen 2022-0 Yes [id number] 500mg Take 1 U nivers 500 mg 7-09 tablet by ity of tablet 00:00: mouth [place] 00 every 8 Medical (eight) Branch hours as needed for Pain (scale 4-6). cyclobenzap 2021-0 Yes [id number] 10mg Take 1 [facility] rine 10 mg 7-09 tablet by ity of tablet 00:00: mouth at [place] 00 bedtime as Medical needed for Branch Muscle Spasms. bromphenira 202-0 Yes [id number] 5mL Take 5 mL [facility] mine-pseudo 7-09 by mouth 4 it y of ephedrine-D 00:00: (four) [place] (BROMFED 00 times Medical DM) 2-30-10 daily as Bran ch mg/5 mL needed for syrup Congestion /Allergies or Cough. naproxen 2021-0 Yes [id number] 500mg Take 1 [facility] nivers 500 mg 7-09 tablet by ity of tablet 00:00: mouth [place] 00 every 8 Medical (eight) Branch hours as needed for Pain (scale 4-6). cyclobenzap 2021-0 Yes [id number] 10mg Take 1 [facility] rine 10 mg 7-09 tablet by ity of tablet 00:00: mouth at [place] 00 bedtime as Medical needed for Branch Muscle Spasms. bromphenira 2021-0 Yes [id number] 5mL Take 5 mL [facility] mine-pseudo 7-09 by mouth 4 it y of ephedrine-D 00:00: (four) [place] (BROMFED 00 times Medical DM) 2-30-10 daily as Bran ch mg/5 mL needed for syrup Congestion /Allergies or Cough. naproxen 2-0 Yes [id number] 500mg Take 1 [facility] nivers 500 mg 7-09 tablet by ity of tablet 00:00: mouth [place] 00 every 8 Medical (eight) Branch hours as needed for Pain (scale 4-6). cyclobenzap 2022-0 Yes [id number] 10mg Take 1 [facility] rine 10 mg 7-09 tablet by ity of tablet 00:00: mouth at [place] 00 bedtime as Medical needed for Branch Muscle Spasms. bromphenira 2022-0 Yes [id number] 5mL Take 5 mL [facility] mine-pseudo 7-09 by mouth 4 it y of ephedrine-D 00:00: (four) [place] (BROMFED 00 times Medical DM) 2-30-10 daily as Bran ch mg/5 mL needed for syrup Congestion /Allergies or Cough. naproxen 2022-0 Yes [id number] 500mg Take 1 [facility] n[facility] 500 mg 7-09 tablet by ity of tablet 00:00: mouth [place] 00 every 8 Medical (eight) Branch hours as needed for Pain (scale 4-6). cyclobenzap 2-0 Yes [id number] 10mg Take 1 [facility] rine 10 mg 7-09 tablet by ity of tablet 00:00: mouth at [place] 00 bedtime as Medical needed for Branch Muscle Spasms. bromphenira 2-0 Yes [id number] 5mL Take 5 mL [facility] mine-pseudo 7-09 by mouth 4 it y of ephedrine-D 00:00: (four) [place] (BROMFED 00 times Medical DM) 2-30-10 daily as Bran ch mg/5 mL needed for syrup Congestion /Allergies or Cough. naproxen 2-0 Yes [id number] 500mg Take 1 [facility] n[facility] 500 mg 7-09 tablet by ity of tablet 00:00: mouth [place] 00 every 8 Medical (eight) Branch hours as needed for Pain (scale 4-6). cyclobenzap 2021-0 Yes [id number] 10mg Take 1 [facility] rine 10 mg 7-09 tablet by ity of tablet 00:00: mouth at [place] 00 bedtime as Medical needed for Branch Muscle Spasms. bromphenira 2-0 Yes [id number] 5mL Take 5 mL [facility] mine-pseudo 7-09 by mouth 4 it y of ephedrine-D 00:00: (four) [place] (BROMFED 00 times Medical DM) 2-30-10 daily as Bran ch mg/5 mL needed for syrup Congestion /Allergies or Cough. naproxen 2022-0 Yes [id number] 500mg Take 1 [facility] 500 mg 7-09 tablet by ity of tablet 00:00: mouth [place] 00 every 8 Medical (eight) Branch hours as needed for Pain (scale 4-6). cyclobenzap 2022-0 Yes [id number] 10mg Take 1 [facility] rine 10 mg 7-09 tablet by ity of tablet 00:00: mouth at [place] 00 bedtime as Medical needed for Branch Muscle Spasms. bromphenira 2021-0 Yes [id number] 5mL Take 5 mL [facility] mine-pseudo 7-09 by mouth 4 it y of ephedrine-D 00:00: (four) [place] (BROMFED 00 times Medical DM) 2-30-10 daily as Bran ch mg/5 mL needed for syrup Congestion /Allergies or Cough. naproxen 2021-0 Yes [id number] 500mg Take 1 [facility] n[facility] 500 mg 7-09 tablet by ity of tablet 00:00: mouth [place] 00 every 8 Medical (eight) Branch hours as needed for Pain (scale 4-6). cyclobenzap 2021-0 Yes [id number] 10mg Take 1 [facility] rine 10 mg 7-09 tablet by ity of tablet 00:00: mouth at [place] 00 bedtime as Medical needed for Branch Muscle Spasms. bromphenira 2021-0 Yes [id number] 5mL Take 5 mL [facility] mine-pseudo 7-09 by mouth 4 it y of ephedrine-D 00:00: (four) [place] (BROMFED 00 times Medical DM) 2-30-10 daily as Bran ch mg/5 mL needed for syrup Congestion /Allergies or Cough. naproxen 2021-0 Yes [id number] 500mg Take 1 [facility] n[facility] 500 mg 7-09 tablet by ity of tablet 00:00: mouth [place] 00 every 8 Medical (eight) Branch hours as needed for Pain (scale 4-6). cyclobenzap 2-0 Yes [id number] 10mg Take 1 [facility] rine 10 mg 7-09 tablet by ity of tablet 00:00: mouth at [place] 00 bedtime as Medical needed for Branch Muscle Spasms. bromphenira 2-0 Yes [id number] 5mL Take 5 mL [facility] mine-pseudo 7-09 by mouth 4 it y of ephedrine-D 00:00: (four) [place] (BROMFED 00 times Medical DM) 2-30-10 daily as Bran ch mg/5 mL needed for syrup Congestion /Allergies or Cough. naproxen 2-0 Yes [id number] 500mg Take 1 [facility] nivers 500 mg 7-09 tablet by ity of tablet 00:00: mouth [place] 00 every 8 Medical (eight) Branch hours as needed for Pain (scale 4-6). cyclobenzap 2021-0 Yes [id number] 10mg Take 1 [facility] rine 10 mg 7-09 tablet by ity of tablet 00:00: mouth at [place] 00 bedtime as Medical needed for Branch Muscle Spasms. bromphenira 2021-0 Yes [id number] 5mL Take 5 mL [facility] mine-pseudo 7-09 by mouth 4 it y of ephedrine-D 00:00: (four) [place] (BROMFED 00 times Medical DM) 2-30-10 daily as Bran ch mg/5 mL needed for syrup Congestion /Allergies or Cough. naproxen 2021-0 Yes [id number] 500mg Take 1 [facility] nivers 500 mg 7-09 tablet by ity of tablet 00:00: mouth [place] 00 every 8 Medical (eight) Branch hours as needed for Pain (scale 4-6). cyclobenzap 2021-0 Yes [id number] 10mg Take 1 [facility] rine 10 mg 7-09 tablet by ity of tablet 00:00: mouth at [place] 00 bedtime as Medical needed for Branch Muscle Spasms. bromphenira 2021-0 Yes [id number] 5mL Take 5 mL [facility] mine-pseudo 7-09 by mouth 4 it y of ephedrine-D 00:00: (four) [place] (BROMFED 00 times Medical DM) 2-30-10 daily as Bran ch mg/5 mL needed for syrup Congestion /Allergies or Cough. naproxen 2-0 Yes [id number] 500mg Take 1 [facility] nivers 500 mg 7-09 tablet by ity of tablet 00:00: mouth [place] 00 every 8 Medical (eight) Branch hours as needed for Pain (scale 4-6). cyclobenzap 2-0 Yes [id number] 10mg Take 1 [facility] rine 10 mg 7-09 tablet by ity of tablet 00:00: mouth at [place] 00 bedtime as Medical needed for Branch Muscle Spasms. bromphenira 2022-0 Yes [id number] 5mL Take 5 mL [facility] mine-pseudo 7-09 by mouth 4 it y of ephedrine-D 00:00: (four) [place] (BROMFED 00 times Medical DM) 2-30-10 daily as Bran ch mg/5 mL needed for syrup Congestion /Allergies or Cough. bromphenira 2022-0 Yes [id number] 5mL Take 5 mL [facility] mine-pseudo 7-09 by mouth 4 it y of ephedrine-D 00:00: (four) [place] (BROMFED 00 times Medical DM) 2-30-10 daily as Bran ch mg/5 mL needed for syrup Congestion /Allergies or Cough. bromphenira 2022-0 Yes [id number] 5mL Take 5 mL [facility] mine-pseudo 7-09 by mouth 4 it y of ephedrine-D 00:00: (four) [place] (BROMFED 00 times Medical DM) 2-30-10 daily as Bran ch mg/5 mL needed for syrup Congestion /Allergies or Cough. bromphenira 2-0 Yes [id number] 5mL Take 5 mL [facility] mine-pseudo 7-09 by mouth 4 it y of ephedrine-D 00:00: (four) [place] (BROMFED 00 times Medical DM) 2-30-10 daily as Bran ch mg/5 mL needed for syrup Congestion /Allergies or Cough. bromphenira 2-0 Yes [id number] 5mL Take 5 mL [facility] mine-pseudo 7-09 by mouth 4 it y of ephedrine-D 00:00: (four) [place] (BROMFED 00 times Medical DM) 2-30-10 daily as Bran ch mg/5 mL needed for syrup Congestion /Allergies or Cough. bromphenira 2-0 Yes [id number] 5mL Take 5 mL [facility] mine-pseudo 7-09 by mouth 4 it y of ephedrine-D 00:00: (four) [place] (BROMFED 00 times Medical DM) 2-30-10 daily as Bran ch mg/5 mL needed for syrup Congestion /Allergies or Cough. bromphenira 2-0 Yes [id number] 5mL Take 5 mL [facility] mine-pseudo 7-09 by mouth 4 it y of ephedrine-D 00:00: (four) [place] (BROMFED 00 times Medical DM) 2-30-10 daily as Bran ch mg/5 mL needed for syrup Congestion /Allergies or Cough. bromphenira 2022-0 Yes [id number] 5mL Take 5 mL [facility] mine-pseudo 7-09 by mouth 4 it y of ephedrine-D 00:00: (four) [place] (BROMFED 00 times Medical DM) 2-30-10 daily as Bran ch mg/5 mL needed for syrup Congestion /Allergies or Cough. bromphenira 2021-0 Yes [id number] 5mL Take 5 mL [facility] mine-pseudo 7-09 by mouth 4 it y of ephedrine-D 00:00: (four) [place] (BROMFED 00 times Medical DM) 2-30-10 daily as Bran ch mg/5 mL needed for syrup Congestion /Allergies or Cough. bromphenira 2021-0 Yes [id number] 5mL Take 5 mL [facility] mine-pseudo 7-09 by mouth 4 it y of ephedrine-D 00:00: (four) [place] (BROMFED 00 times Medical DM) 2-30-10 daily as Bran ch mg/5 mL needed for syrup Congestion /Allergies or Cough. bromphenira 2021-0 Yes [id number] 5mL Take 5 mL [facility] mine-pseudo 7-09 by mouth 4 it y of ephedrine-D 00:00: (four) [place] (BROMFED 00 times Medical DM) 2-30-10 daily as Bran ch mg/5 mL needed for syrup Congestion /Allergies or Cough. bromphenira 2021-0 Yes [id number] 5mL Take 5 mL [facility] mine-pseudo 7-09 by mouth 4 it y of ephedrine-D 00:00: (four) [place] (BROMFED 00 times Medical DM) 2-30-10 daily as Bran ch mg/5 mL needed for syrup Congestion /Allergies or Cough. bromphenira 2021-0 Yes [id number] 5mL Take 5 mL [facility] mine-pseudo 7-09 by mouth 4 it y of ephedrine-D 00:00: (four) [place] (BROMFED 00 times Medical DM) 2-30-10 daily as Bran ch mg/5 mL needed for syrup Congestion /Allergies or Cough. bromphenira 202-0 Yes [id number] 5mL Take 5 mL [facility] mine-pseudo 7-09 by mouth 4 it y of ephedrine-D 00:00: (four) [place] (BROMFED 00 times Medical DM) 2-30-10 daily as Bran ch mg/5 mL needed for syrup Congestion /Allergies or Cough. bromphenira 2021- No [id number] 5mL Take 5 mL [facility] mine-pseudo 11-1812 by mouth 4 i ty of ephedrine-D 00:00: 00:00 (four) [place] (BROMFED 00 :00 times Medical DM) 2-30-10 daily as Bran ch mg/5 mL needed for syrup Congestion /Allergies or Cough. bromphenira 2021- No [id number] 5mL Take 5 mL [facility] mine-pseudo 11-18 by mouth 4 i ty of ephedrine-D 00:00: 00:00 (four) [place] (BROMFED 00 :00 times Medical DM) 2-30-10 daily as Bran ch mg/5 mL needed for syrup Congestion /Allergies or Cough. naproxen No [id number] 500mg Take 1 [facility] 500 mg 7- 10-18 tablet by ity of tablet 00:00: 00:00 mouth [place] 00 :00 every 8 Medical (eight) Branch hours as needed for Pain (scale 4-6). cyclobenzap No [id number] 10mg Take 1 [facility] rine 10 mg 7- 10-18 tablet by ity of tablet 00:00: 00:00 mouth at [place] 00 :00 bedtime as Medical needed for Branch Muscle Spasms. naproxen No [id number] 500mg Take 1 [facility] 500 mg 7- 10-18 tablet by ity of tablet 00:00: 00:00 mouth [place] 00 :00 every 8 Medical (eight) Branch hours as needed for Pain (scale 4-6). cyclobenzap No [id number] 10mg Take 1 [facility] rine 10 mg 7- 10-18 tablet by ity of tablet 00:00: 00:00 mouth at [place] 00 :00 bedtime as Medical needed for Branch Muscle Spasms. naproxen No [id number] 500mg Take 1 [facility] 500 mg 7-09 10-18 tablet by ity of tablet 00:00: 00:00 mouth [place] 00 :00 every 8 Medical (eight) Branch hours as needed for Pain (scale 4-6). cyclobenzap No [id number] 10mg Take 1 [facility] rine 10 mg 7- 10-18 tablet by ity of tablet 00:00: 00:00 mouth at [place] 00 :00 bedtime as Medical needed for Branch Muscle Spasms. naproxen 2021- No [id number] 500mg Take 1 [facility] 500 mg 7- 10-18 tablet by ity of tablet 00:00: 00:00 mouth [place] 00 :00 every 8 Medical (eight) Branch hours as needed for Pain (scale 4-6). cyclobenzap No [id number] 10mg Take 1 [facility] rine 10 mg 7- 10-18 tablet by ity of tablet 00:00: 00:00 mouth at [place] 00 :00 bedtime as Medical needed for Branch Muscle Spasms. naproxen 2021- No [id number] 500mg Take 1 [facility] 500 mg 7- 10-18 tablet by ity of tablet 00:00: 00:00 mouth [place] 00 :00 every 8 Medical (eight) Branch hours as needed for Pain (scale 4-6). cyclobenzap No [id number] 10mg Take 1 [facility] rine 10 mg 7- 10-18 tablet by ity of tablet 00:00: 00:00 mouth at [place] 00 :00 bedtime as Medical needed for Branch Muscle Spasms. ibuprofen Yes [id number] 605mg Take 30.25 [facility] 100 mg/5 mL 6-15 mL by ity of oral 00:00: mouth [place] suspension 00 every 6 Medica l (six) Branch hours as needed for Pain (scale 4-6) or Temp > 38.5 C. ibuprofen Yes [id number] 605mg Take 30.25 [facility] 100 mg/5 mL 6-15 mL by ity of oral 00:00: mouth [place] suspension 00 every 6 Medica l (six) Branch hours as needed for Pain (scale 4-6) or Temp > 38.5 C. ibuprofen Yes [id number] 605mg Take 30.25 [facility] 100 mg/5 mL 6-15 mL by ity of oral 00:00: mouth [place] suspension 00 every 6 Medica l (six) Branch hours as needed for Pain (scale 4-6) or Temp > 38.5 C. ibuprofen 2021-0 Yes [id number] 605mg Take 30.25 [facility] 100 mg/5 mL 6-15 mL by ity of oral 00:00: mouth [place] suspension 00 every 6 Medica l (six) Branch hours as needed for Pain (scale 4-6) or Temp > 38.5 C. ibuprofen 2021-0 Yes [id number] 605mg Take 30.25 [facility] 100 mg/5 mL 6-15 mL by ity of oral 00:00: mouth [place] suspension 00 every 6 Medica l (six) Branch hours as needed for Pain (scale 4-6) or Temp > 38.5 C. ibuprofen 2021-0 Yes [id number] 605mg Take 30.25 [facility] 100 mg/5 mL 6-15 mL by ity of oral 00:00: mouth [place] suspension 00 every 6 Medica l (six) Branch hours as needed for Pain (scale 4-6) or Temp > 38.5 C. ibuprofen 2021-0 Yes [id number] 605mg Take 30.25 [facility] 100 mg/5 mL 6-15 mL by ity of oral 00:00: mouth [place] suspension 00 every 6 Medica l (six) Branch hours as needed for Pain (scale 4-6) or Temp > 38.5 C. ibuprofen 2021-0 Yes [id number] 605mg Take 30.25 [facility] 100 mg/5 mL 6-15 mL by ity of oral 00:00: mouth [place] suspension 00 every 6 Medica l (six) Branch hours as needed for Pain (scale 4-6) or Temp > 38.5 C. ibuprofen 2021-0 Yes [id number] 605mg Take 30.25 [facility] 100 mg/5 mL 6-15 mL by ity of oral 00:00: mouth [place] suspension 00 every 6 Medica l (six) Branch hours as needed for Pain (scale 4-6) or Temp > 38.5 C. ibuprofen 2021-0 Yes [id number] 605mg Take 30.25 [facility] 100 mg/5 mL 6-15 mL by ity of oral 00:00: mouth [place] suspension 00 every 6 Medica l (six) Branch hours as needed for Pain (scale 4-6) or Temp > 38.5 C. ibuprofen 202-0 Yes [id number] 605mg Take 30.25 [facility] 100 mg/5 mL 6-15 mL by ity of oral 00:00: mouth [place] suspension 00 every 6 Medica l (six) Branch hours as needed for Pain (scale 4-6) or Temp > 38.5 C. ibuprofen 2021- No [id number] 605mg Take 30.25 [facility] 100 mg/5 mL 6-15 10-18 mL by ity of oral 00:00: 00:00 mouth [place] suspension 00 :00 every 6 Medica l (six) Branch hours as needed for Pain (scale 4-6) or Temp > 38.5 C. ibuprofen 2021- No [id number] 605mg Take 30.25 [facility] 100 mg/5 mL 6-15 10-18 mL by ity of oral 00:00: 00:00 mouth [place] suspension 00 :00 every 6 Medica l (six) Branch hours as needed for Pain (scale 4-6) or Temp > 38.5 C. ibuprofen 2021- No [id number] 605mg Take 30.25 [facility] 100 mg/5 mL 6-15 10-18 mL by ity of oral 00:00: 00:00 mouth [place] suspension 00 :00 every 6 Medica l (six) Branch hours as needed for Pain (scale 4-6) or Temp > 38.5 C. ibuprofen 2021- No [id number] 605mg Take 30.25 [facility] 100 mg/5 mL 6-15 10-18 mL by ity of oral 00:00: 00:00 mouth [place] suspension 00 :00 every 6 Medica l (six) Branch hours as needed for Pain (scale 4-6) or Temp > 38.5 C. ibuprofen 2021- No [id number] 605mg Take 30.25 [facility] 100 mg/5 mL 6-15 10-18 mL by ity of oral 00:00: 00:00 mouth [place] suspension 00 :00 every 6 Medica l (six) Branch hours as needed for Pain (scale 4-6) or Temp > 38.5 C. acetaminoph 2021-2021- No [id number] 608mg Take 19 mL [facility] en 160 mg/5 6-15 08- by mouth ity of mL liquid 00:00: 00:00 every 6 [place] 00 :00 (six) Medical hours as Branch needed for Fever. acetaminoph 2021-0 2- No [id number] 608mg Take 19 mL [facility] en 160 mg/5 6-15 - by mouth ity of mL liquid 00:00: 00:00 every 6 [place] 00 :00 (six) Medical hours as Branch needed for Fever. DULoxetine 2021-0 Yes [facility] 60 mg 5-27 ity of capsule 00:00: [place] 00 Medical Branch DULoxetine 2022-0 Yes [facility] 60 mg 5-27 ity of capsule 00:00: [place] [address] Medical Branch DULoxetine 2-0 Yes [facility] 60 mg 5-27 ity of capsule 00:00: [place] [address] Medical Branch DULoxetine 2-0 Yes [facility] 60 mg 5-27 ity of capsule 00:00: [place] [address] Medical Branch DULoxetine 2022-0 Yes [facility] 60 mg 5-27 ity of capsule 00:00: [place] [address] Medical Branch DULoxetine 2-0 Yes [facility] 60 mg 5-27 ity of capsule 00:00: [place] [address] Medical Branch DULoxetine 2-0 Yes [facility] 60 mg 5-27 ity of capsule 00:00: [place] 00 Medical Branch DULoxetine 2-0 Yes [facility] 60 mg 5-27 ity of capsule 00:00: [place] [address] Medical Branch DULoxetine 2-0 Yes [facility] 60 mg 5-27 ity of capsule 00:00: [place] [address] Medical Branch DULoxetine 2-0 Yes [facility] 60 mg 5-27 ity of capsule 00:00: [place] [address] Medical Branch DULoxetine 2022-0 Yes [facility] 60 mg 5-27 ity of capsule 00:00: [place] 00 Medical Branch DULoxetine 2-0 2022- No Un[facility] s 60 mg 5-27 10-18 ity of capsule 00:00: 00:00 [place] 00 :00 Medical Branch DULoxetine 2022-0 2022- No Univer s 60 mg 5-27 10-18 ity of capsule 00:00: 00:00 [place] 00 :00 Medical Branch DULoxetine 2022-0 2022- No Univer s 60 mg 5-27 10-18 ity of capsule 00:00: 00:00 [place] 00 :00 Medical Branch DULoxetine 2-0 2022- No Univer s 60 mg 5-27 10-18 ity of capsule 00:00: 00:00 [place] 00 :00 Medical Branch traZODone 0 2021- No [facility] 50 mg 5-27 12-12 ity of tablet 00:00: 00:00 [place] 00 :00 Medical Branch mometasone 2021-0 Yes [id number] 1{spray Use 1 [facility] 50 5-19 } [place] in ity of mcg/actuati 00:00: each [place] on nasal 00 nostril 2 Medica l spray (two) Branch times daily. mometasone 2021-0 Yes [id number] 1{spray Use 1 [facility] 50 5-19 } [place] in ity of mcg/actuati 00:00: each [place] on nasal 00 nostril 2 Medica l spray (two) Branch times daily. mometasone 2021-0 Yes [id number] 1{spray Use 1 [facility] 50 5-19 } [place] in ity of mcg/actuati 00:00: each [place] on nasal 00 nostril 2 Medica l spray (two) Branch times daily. mometasone 2021-0 Yes [id number] 1{spray Use 1 [facility] 50 5-19 } [place] in ity of mcg/actuati 00:00: each [place] on nasal 00 nostril 2 Medica l spray (two) Branch times daily. mometasone 2021-0 Yes [id number] 1{spray Use 1 [facility] 50 5-19 } [place] in ity of mcg/actuati 00:00: each [place] on nasal 00 nostril 2 Medica l spray (two) Branch times daily. mometasone 2021-0 Yes [id number] 1{spray Use 1 [facility] 50 5-19 } [place] in ity of mcg/actuati 00:00: each [place] on nasal 00 nostril 2 Medica l spray (two) Branch times daily. mometasone 2021-0 Yes [id number] 1{spray Use 1 [facility] 50 5-19 } [place] in ity of mcg/actuati 00:00: each [place] on nasal 00 nostril 2 Medica l spray (two) Branch times daily. mometasone 2021-0 Yes [id number] 1{spray Use 1 [facility] 50 5-19 } [place] in ity of mcg/actuati 00:00: each [place] on nasal 00 nostril 2 Medica l spray (two) Branch times daily. mometasone Yes [id number] 1{spray Use 1 [facility] 50 5-19 } [place] in ity of mcg/actuati 00:00: each [place] on nasal 00 nostril 2 Medica l spray (two) Branch times daily. mometasone Yes [id number] 1{spray Use 1 [facility] 50 5-19 } [place] in ity of mcg/actuati 00:00: each [place] on nasal 00 nostril 2 Medica l spray (two) Branch times daily. mometasone Yes [id number] 1{spray Use 1 [facility] 50 5-19 } [place] in ity of mcg/actuati 00:00: each [place] on nasal 00 nostril 2 Medica l spray (two) Branch times daily. mometasone 2021- No [id number] 1{spray Use 1 [facility] 50 5-19 10-18 } [place] in ity of mcg/actuati 00:00: 00:00 each [place] on nasal 00 :00 nostril 2 Medica l spray (two) Branch times daily. mometasone 2021- No [id number] 1{spray Use 1 [facility] 50 5-19 10-18 } [place] in ity of mcg/actuati 00:00: 00:00 each [place] on nasal 00 :00 nostril 2 Medica l spray (two) Branch times daily. mometasone 2021- No [id number] 1{spray Use 1 [facility] 50 5-19 10-18 } [place] in ity of mcg/actuati 00:00: 00:00 each [place] on nasal 00 :00 nostril 2 Medica l spray (two) Branch times daily. mometasone 2021- No [id number] 1{spray Use 1 [facility] 50 5-19 10-18 } [place] in ity of mcg/actuati 00:00: 00:00 each [place] on nasal 00 :00 nostril 2 Medica l spray (two) Branch times daily. mometasone 2021- No [id number] 1{spray Use 1 [facility] 50 5-19 10-18 } [place] in ity of mcg/actuati 00:00: 00:00 each [place] on nasal 00 :00 nostril 2 Medica l spray (two) Branch times daily. cetirizine Yes [id number] 10mg Take 1 U nivers (ZYRTEC) 10 5-16 tablet by ity of mg tablet 00:00: mouth [place] 00 daily. [facility] Branch cetirizine Yes [id number] 10mg Take 1 U nivers (ZYRTEC) 10 5-16 tablet by ity of mg tablet 00:00: mouth [place] 00 daily. [facility] Branch cetirizine Yes [id number] 10mg Take 1 U nivers (ZYRTEC) 10 5-16 tablet by ity of mg tablet 00:00: mouth [place] 00 daily. [facility] Branch cetirizine Yes [id number] 10mg Take 1 U nivers (ZYRTEC) 10 5-16 tablet by ity of mg tablet 00:00: mouth [place] 00 daily. [facility] Branch cetirizine Yes [id number] 10mg Take 1 U nivers (ZYRTEC) 10 5-16 tablet by ity of mg tablet 00:00: mouth [place] 00 daily. [facility] Branch cetirizine Yes [id number] 10mg Take 1 U nivers (ZYRTEC) 10 5-16 tablet by ity of mg tablet 00:00: mouth [place] 00 daily. [facility] Branch cetirizine Yes [id number] 10mg Take 1 U nivers (ZYRTEC) 10 5-16 tablet by ity of mg tablet 00:00: mouth [place] 00 daily. [facility] Branch cetirizine Yes [id number] 10mg Take 1 U nivers (ZYRTEC) 10 5-16 tablet by ity of mg tablet 00:00: mouth [place] 00 daily. [facility] Branch cetirizine Yes [id number] 10mg Take 1 U nivers (ZYRTEC) 10 5-16 tablet by ity of mg tablet 00:00: mouth [place] 00 daily. [facility] Branch cetirizine Yes [id number] 10mg Take 1 U nivers (ZYRTEC) 10 5-16 tablet by ity of mg tablet 00:00: mouth [place] 00 daily. [facility] Branch cetirizine Yes [id number] 10mg Take 1 U nivers (ZYRTEC) 10 5-16 tablet by ity of mg tablet 00:00: mouth [place] 00 daily. Medical Branch cetirizine 2021- No [id number] 10mg Take 1 [facility] (ZYRTEC) 10 5-16 10-18 tablet by it y of mg tablet 00:00: 00:00 mouth [place] 00 :00 daily. Medical Branch cetirizine 2- No [id number] 10mg Take 1 [facility] (ZYRTEC) 10 5-16 10-18 tablet by it y of mg tablet 00:00: 00:00 mouth [place] 00 :00 daily. Medical Branch cetirizine 2021- No [id number] 10mg Take 1 [facility] (ZYRTEC) 10 5-16 10-18 tablet by it y of mg tablet 00:00: 00:00 mouth [place] 00 :00 daily. Medical Branch cetirizine 2021- No [id number] 10mg Take 1 [facility] (ZYRTEC) 10 5-16 10-18 tablet by it y of mg tablet 00:00: 00:00 mouth [place] 00 :00 daily. Medical Branch cetirizine 2021- No [id number] 10mg Take 1 [facility] (ZYRTEC) 10 5-16 10-18 tablet by it y of mg tablet 00:00: 00:00 mouth [place] 00 :00 daily. Medical Branch DULoxetine 2-0 Yes [facility] 30 mg 5-09 ity of capsule 00:00: [place] 00 Medical Branch gabapentin 2022-0 Yes [facility] 300 mg 5-09 ity of capsule 00:00: 00 Medical Branch ondansetron 2-0 Yes Univer s 4 mg tablet 5-09 ity of 00:00: 00 Medical Branch DULoxetine 2022-0 Yes [facility] 30 mg 5-09 ity of capsule 00:00: [place] 00 Medical Branch gabapentin 2022-0 Yes [facility] 300 mg 5-09 ity of capsule 00:00: 00 Medical Branch ondansetron 2-0 Yes Univer s 4 mg tablet 5-09 ity of 00:00: [place] 00 Medical Branch DULoxetine 2022-0 Yes [facility] 30 mg 5-09 ity of capsule 00:00: [place] 00 Medical Branch gabapentin 2022-0 Yes [facility] 300 mg 5-09 ity of capsule 00:00: [place] 00 Medical Branch ondansetron 2022-0 Yes Univer s 4 mg tablet 5-09 ity of 00:00: [place] 00 Medical Branch DULoxetine 2022-0 Yes [facility] 30 mg 5-09 ity of capsule 00:00: [place] 00 Medical Branch gabapentin 2022-0 Yes [facility] 300 mg 5-09 ity of capsule 00:00: [place] 00 Medical Branch ondansetron 2022-0 Yes Univer s 4 mg tablet 5-09 ity of 00:00: [place] 00 Medical Branch DULoxetine 2022-0 Yes [facility] 30 mg 5-09 ity of capsule 00:00: [place] 00 Medical Branch gabapentin 2022-0 Yes [facility] 300 mg 5-09 ity of capsule 00:00: [place] 00 Medical Branch ondansetron 2022-0 Yes Univer s 4 mg tablet 5-09 ity of 00:00: [place] [facility] Branch DULoxetine 2022-0 Yes [facility] 30 mg 5-09 it[facility] of capsule 00:00: [place] [facility] gabapentin 2022-0 Yes [facility] 300 mg 5-09 ity of capsule 00:00: [place] 00 [facility] ondansetron 2022-0 Yes Univer s 4 mg tablet 5-09 ity of 00:00: [place] [address] [facility] Branch DULoxetine 2022-0 Yes [facility] 30 mg 5-09 ity of capsule 00:00: [place] 00 [facility] gabapentin 2022-0 Yes [facility] 300 mg 5-09 ity of capsule 00:00: [place] 00 [facility] ondansetron 2022-0 Yes Univer s 4 mg tablet 5-09 ity of 00:00: [place] 00 [facility] DULoxetine 2022-0 Yes [facility] 30 mg 5-09 ity of capsule 00:00: [place] 00 [facility] gabapentin 2022-0 Yes [facility] 300 mg 5-09 ity of capsule 00:00: [place] 00 [facility] ondansetron 2022-0 Yes Univer s 4 mg tablet 5-09 ity of 00:00: [place] 00 [facility] DULoxetine 2022-0 Yes [facility] 30 mg 5-09 ity of capsule 00:00: [place] 00 [facility] gabapentin 2022-0 Yes [facility] 300 mg 5-09 ity of capsule 00:00: [place] 00 [facility] ondansetron 2022-0 Yes Univer s 4 mg tablet 5-09 ity of 00:00: [place] 00 [facility] DULoxetine 2022-0 Yes [facility] 30 mg - ity of capsule 00:00: [place] 00 [facility] gabapentin 2022-0 Yes [facility] 300 mg - ity of capsule 00:00: [place] 00 [facility] ondansetron 2022-0 Yes Univer s 4 mg tablet 09-18 ity of 00:00: [place] 00 [facility] DULoxetine 2022-0 Yes [facility] 30 mg - ity of capsule 00:00: [place] 00 [facility] gabapentin 2022-0 Yes [facility] 300 mg 09-18 ity of capsule 00:00: [place] 00 [facility] ondansetron 2022-0 Yes Univer s 4 mg tablet 09-18 ity of 00:00: [place] 00 [facility] DULoxetine 2022-0 2022- No Univer s 30 mg 09-18 ity of capsule 00:00: 00:00 [place] 00 :00 [facility] gabapentin 2022-0 2022- No Univer s 300 mg 09-18 ity of capsule 00:00: 00:00 [place] 00 :00 [facility] Branch ondansetron 2022-0 2022- No Unive rs 4 mg tablet 09-18 ity of 00:00: 00:00 [place] 00 :00 [facility] Branch DULoxetine 2022-0 2022- No Univer s 30 mg 09-18 ity of capsule 00:00: 00:00 [place] 00 :00 [facility] Branch gabapentin 2022-0 2022- No Univer s 300 mg 09-18 ity of capsule 00:00: 00:00 [place] 00 :00 [facility] Branch ondansetron 2022-0 2022- No Unive rs 4 mg tablet 09-18 ity of 00:00: 00:00 [place] 00 :00 [facility] Branch DULoxetine 2022-0 2022- No Univer s 30 mg 09-18- ity of capsule 00:00: 00:00 [place] 00 :00 [facility] Branch gabapentin 2022-0 2022- No Univer s 300 mg 09-18- ity of capsule 00:00: 00:00 [place] 00 :00 [facility] ondansetron 2022-0 2022- No Unive rs 4 mg tablet 09-18- ity of 00:00: 00:00 [place] 00 :00 [facility] DULoxetine 2022-0 2022- No Univer s 30 mg 09-18 ity of capsule 00:00: 00:00 [place] 00 :00 [facility] gabapentin 2022-0 2022- No Univer s 300 mg 09-18 ity of capsule 00:00: 00:00 [place] 00 :00 [facility] ondansetron 2022-0 2022- No Unive rs 4 mg tablet 09-18 ity of 00:00: 00:00 [place] 00 :00 [facility] DULoxetine 2022-0 2022- No Univer s 30 mg 09-18 ity of capsule 00:00: 00:00 [place] 00 :00 [facility] gabapentin 2022-0 2022- No Univer s 300 mg 09-18 ity of capsule 00:00: 00:00 [place] 00 :00 [facility] ondansetron 2022-0 2- No Unive rs 4 mg tablet 09-18 ity of 00:00: 00:00 [place] 00 :00 [facility] amLODIPine 2022-0 Yes [facility] 5 mg tablet 4-22 ity of 00:00: [place] [facility] amLODIPine 2022-0 Yes 5mg Take 5 mg Un sushant 5 mg tablet 4-22 by mouth. ity of 00:00: [place] [facility] amLODIPine 2022-0 Yes [facility] 5 mg tablet 4-22 ity of 00:00: [place] [facility] amLODIPine 2022-0 Yes 5mg Take 5 mg Un sushant 5 mg tablet 4-22 by mouth. ity of 00:00: [place] [facility] amLODIPine 2022-0 Yes [facility] 5 mg tablet 4-22 ity of 00:00: [place] [facility] amLODIPine 2022-0 Yes 5mg Take 5 mg Un sushant 5 mg tablet 4-22 by mouth. ity of 00:00: [place] [facility] amLODIPine 2022-0 Yes [facility] 5 mg tablet 4-22 ity of 00:00: [place] [address] [facility] amLODIPine 2022-0 Yes 5mg Take 5 mg Un sushant 5 mg tablet 4-22 by mouth. ity of 00:00: [place] [facility] amLODIPine 2022-0 Yes [facility] 5 mg tablet 4-22 ity of 00:00: [place] [facility] amLODIPine 2022-0 Yes 5mg Take 5 mg Un sushant 5 mg tablet 4-22 by mouth. ity of 00:00: [place] [facility] amLODIPine 2022-0 Yes [facility] 5 mg tablet 4-22 ity of 00:00: [place] [facility] amLODIPine 2022-0 Yes 5mg Take 5 mg Un sushant 5 mg tablet 4-22 by mouth. ity of 00:00: [place] [facility] amLODIPine 2022-0 Yes [facility] 5 mg tablet 4-22 ity of 00:00: [place] [facility] amLODIPine 2022-0 Yes 5mg Take 5 mg Un sushant 5 mg tablet 4-22 by mouth. ity of 00:00: [place] [facility] amLODIPine 2022-0 Yes [facility] 5 mg tablet 4-22 ity of 00:00: [place] [facility] amLODIPine 2022-0 Yes 5mg Take 5 mg Un sushant 5 mg tablet 4-22 by mouth. ity of 00:00: [place] [facility] amLODIPine 2022-0 Yes [facility] 5 mg tablet 4-22 ity of 00:00: [place] [facility] amLODIPine 2022-0 Yes 5mg Take 5 mg Un sushant 5 mg tablet 4-22 by mouth. ity of 00:00: [place] [facility] amLODIPine 2-0 Yes [facility] 5 mg tablet 4-22 ity of 00:00: [place] [facility] amLODIPine 2022-0 Yes 5mg Take 5 mg Un sushant 5 mg tablet 4-22 by mouth. ity of 00:00: [place] [facility] amLODIPine 2022-0 Yes [facility] 5 mg tablet 4-22 ity of 00:00: [place] [facility] amLODIPine 2022-0 Yes 5mg Take 5 mg Un sushant 5 mg tablet 4-22 by mouth. ity of 00:00: [place] [facility] amLODIPine 2022-0 2022- No Univer s 5 mg tablet -02-27 ity of 00:00: 00:00 [place] 00 :00 [facility] amLODIPine 2022-0 2022- No 5mg Take 5 mg U nivers 5 mg tablet -22 02-27 by mouth. it y of 00:00: 00:00 [place] 00 :00 [facility] Branch amLODIPine 2022-0 2022- No Univer s 5 mg tablet -22 02-27 ity of 00:00: 00:00 [place] 00 :00 [facility] amLODIPine 2-0 2022- No 5mg Take 5 mg U nivers 5 mg tablet 09-01 by mouth. it y of 00:00: 00:00 [place] 00 :00 [facility] amLODIPine 2022-0 2022- No Univer s 5 mg tablet 09-01 ity of 00:00: 00:00 [place] 00 :00 [facility] amLODIPine 2022-0 2022- No 5mg Take 5 mg U nivers 5 mg tablet 09-01 by mouth. it y of 00:00: 00:00 [place] 00 :00 [facility] amLODIPine 2022-0 2022- No Univer s 5 mg tablet 09-01 ity of 00:00: 00:00 [place] 00 :00 [facility] amLODIPine 2022-0 2022- No 5mg Take 5 mg U nivers 5 mg tablet 09-01 by mouth. it y of 00:00: 00:00 [place] 00 :00 [facility] Branch amLODIPine 2022-0 2022- No Univer s 5 mg tablet 09-01 ity of 00:00: 00:00 [place] 00 :00 [facility] Branch amLODIPine 2-0 2022- No 5mg Take 5 mg U nivers 5 mg tablet 09-01 by mouth. it y of 00:00: 00:00 [place] 00 :00 [facility] Branch buPROPion 2021-0 Yes [...] 00:00: 04:59 mouth. [place] tablet 00 :00 [facility] buPROPion 2022- No 150mg [...] 00 :00 Medical Branch proMETHazin 2021- No [id number] 25mg Take 1 [facility] e 25 mg [...] Indication s: acute pain proMETHazin 2021-2021- No [id number] 25mg Take 1 [facility] e 25 mg [...] Indication s: acute pain proMETHazin 2021- No [id number] 25mg Take 1 [facility] e 25 mg [...] Indication s: acute pain cyclobenzap 2021- No [id number] 10mg Take 1 [facility] rine 10 mg 08-07 tablet by ity of tablet 00:00: 04:59 mouth 3 [place] 00 :00 (three) Medical times Branch daily for 14 days. ibuprofen 2021- No [id number] 800mg Take 1 [facility] 800 mg 08-07- [...] SR 08-01 ity of tablet 00:00: 00:00 [place] 00 :00 Medical Branch diclofenac 2021- No Univer s 75 mg EC 08-01- ity of tablet 00:00: 00:00 [place] 00 :00 Medical Branch orphenadrin 2021- No Unive rs e 100 mg SR 08-01- ity of tablet 00:00: 00:00 [place] 00 :00 [facility] Branch divalproex 2021- No [id number] 125mg Take 1 [facility] 125 mg EC 07-21 tablet by ity of tablet 00:00: 00:00 mouth [place] 00 :00 every 12 Medical (twelve) Branch hours. divalproex 2021- No Univer s Sprinkles 07-21- ity of 125 mg 00:00: 00:00 [place] SPRINK 00 :00 Medical capsule Branch divalproex 2021- No [id number] 125mg Take 1 [facility] 125 mg EC 07-21- tablet by ity of tablet 00:00: 00:00 mouth [place] 00 :00 every 12 Medical (twelve) Branch hours. divalproex 2021- No Univer s Sprinkles 07-21-03 ity of 125 mg 00:00: 00:00 [place] SPRINKLE 00 :00 Medical capsule Branch divalproex 2021- No [id number] 125mg Take 1 [facility] 125 mg EC 07-21- tablet by ity of tablet 00:00: 00:00 mouth [place] 00 :00 every 12 Medical (twelve) Branch hours. ibuprofen 2021- No [id number] 600mg Take 1 [facility] 600 mg 07-17 [...] PAIN FOR 2 DAYS fluticasone 2021- No [id number] 2{puff} Inhale 2 [facility] propionate 1-19 05-19 Puffs ity of 110 00:00: 00:00 every 12 [place] mcg/actuati 00 :00 (twelve) Medi yessi on inhaler hours. Branch fluticasone 2021- No [id number] 2{puff} Inhale 2 [facility] propionate 1-19 05-19 Puffs ity of 110 00:00: 00:00 every 12 [place] mcg/actuati 00 :00 (twelve) Medi yessi on inhaler hours. Branch fluticasone 2021- No [id number] 2{puff} Inhale 2 [facility] propionate 1-19 05-19 Puffs ity of 110 00:00: 00:00 every 12 [place] mcg/actuati 00 :00 (twelve) Medi yessi on inhaler hours. Branch fluticasone 2021- No [id number] 2{puff} Inhale 2 [facility] propionate 1-19 05-19 Puffs ity of 110 00:00: 00:00 every 12 [place] mcg/actuati 00 :00 (twelve) Medi yessi on inhaler hours. Branch benzonatate 2021- No [id number] 100mg Take 1 [facility] (TESSALON 113 05-16 capsule by Ma[place]) 100 00:00: 00:00 mouth [place] mg capsule 00 :00 every 8 Medica l (eight) Branch hours as needed for Cough. benzonatate 2021- No [id number] 100mg Take 1 [facility] (TESSALON 113 05-16 capsule by Ma[place]) 100 00:00: 00:00 mouth [place] mg capsule 00 :00 every 8 Medica l (eight) Branch hours as needed for Cough. benzonatate 2021- No [id number] 100mg Take 1 [facility] (TESSALON 113 05-16 capsule by ankush REUBEN) 100 00:00: 00:00 mouth [place] mg capsule 00 :00 every 8 Medica l (eight) Branch hours as needed for Cough. benzonatate 2021- No [id number] 100mg Take 1 [facility] (TESSALON 113 05-16 [...] ity of tablet 00:00: 00:00 mouth 2 [place] 00 :00 (two) Medical times Branch daily with meals. losartan 50 2020-05- No 50mg Take 1 Uni vers mg tablet 2-30 10-18 tablet by ity of 00:00: 00:00 mouth 2 [place] 00 :00 (two) Medical times Branch daily. carvediloL 2020-2021- No 25mg Take 1 Univ ers 25 mg 2-30 10-18 tablet by ity of tablet 00:00: 00:00 mouth 2 [place] 00 :00 (two) Medical times Branch daily with meals. losartan 50 2020-05- No 50mg Take 1 Uni vers mg tablet 2-30 10-18 tablet by ity of 00:00: 00:00 mouth 2 [place] 00 :00 (two) Medical times Branch daily. carvediloL 2020-05- No 25mg Take 1 Univ ers 25 mg 2-30 10-18 tablet by ity of tablet 00:00: 00:00 mouth 2 [place] 00 :00 (two) Medical times Branch daily with meals. losartan 50 2020-05- No 50mg Take 1 Uni vers mg tablet 2-30 10-18 tablet by ity of 00:00: 00:00 mouth 2 [place] 00 :00 (two) Medical times Branch daily. carvediloL 2020-2021- No 25mg Take 1 Univ ers 25 mg 2-30 10-18 tablet by ity of tablet 00:00: 00:00 mouth 2 [place] 00 :00 (two) Medical times Branch daily with meals. losartan 50 2020-05- No 50mg Take 1 [facility] vers mg tablet 2-30 10-18 tablet by ity of 00:00: 00:00 mouth 2 [place] 00 :00 (two) Medical times Branch daily. carvediloL 2020-05- No 25mg Take 1 Univ ers 25 mg 2-30 10-18 tablet by ity of tablet 00:00: 00:00 mouth 2 [place] 00 :00 (two) Medical times Branch daily with meals. losartan 50 2020-05- No 50mg Take 1 [facility] vers mg tablet 2-30 10-18 tablet by ity of 00:00: 00:00 mouth 2 [place] 00 :00 (two) Medical times Branch daily. carvediloL 2020-05- No 25mg Take 1 Univ ers 25 mg 2-30 10-18 tablet by ity of tablet 00:00: 00:00 mouth 2 [place] 00 :00 (two) Medical times Branch daily with meals. losartan 50 2020-05- No 50mg Take 1 Uni vers mg tablet 2-30 10-18 tablet by ity of 00:00: 00:00 mouth 2 [place] 00 :00 (two) Medical times Branch daily. carvediloL 2020-2021- No 25mg Take 1 Univ ers 25 mg 2-30 10-18 tablet by ity of tablet 00:00: 00:00 mouth 2 [place] 00 :00 (two) Medical times Branch daily with meals. losartan 50 2020-05- No 50mg Take 1 Uni vers mg tablet 2-30 10-18 tablet by ity of 00:00: 00:00 mouth 2 [place] 00 :00 (two) Medical times Branch daily. carvediloL 2020-05- No 25mg Take 1 Univ ers 25 mg 2-30 10-18 tablet by ity of tablet 00:00: 00:00 mouth 2 [place] 00 :00 (two) Medical times Branch daily with meals. losartan 50 2020-05- No 50mg Take 1 Uni vers mg tablet 2-30 10-18 tablet by ity of 00:00: 00:00 mouth 2 [place] 00 :00 (two) Medical times Branch daily. carvediloL 2020-05- No 25mg Take 1 Univ ers 25 mg 2-30 10-18 tablet by ity of tablet 00:00: 00:00 mouth 2 [place] 00 :00 (two) Medical times Branch daily with meals. losartan 50 2020-05- No 50mg Take 1 Uni vers mg tablet 2-30 10-18 tablet by ity of 00:00: 00:00 mouth 2 [place] 00 :00 (two) Medical times Branch daily. carvediloL 2020-05- No 25mg Take 1 Univ ers 25 mg 2-30 10-18 tablet by ity of tablet 00:00: 00:00 mouth 2 [place] 00 :00 (two) Medical times Branch daily with meals. losartan 50 2020-05- No 50mg Take 1 Uni vers mg tablet 2-30 10-18 tablet by ity of 00:00: 00:00 mouth 2 [place] 00 :00 (two) Medical times Branch daily. [...] 00 :00 Medical Branch methocarbam 2020-05- No [id number] 500mg Take 1 Univers oL 07-03-13 tablet by ity of (ROBAXIN) 00:00: 00:00 mouth [place] 500 mg 00 :00 every 6 Medical tablet (six) Branch hours as needed (MUSCLE SPASM). vitamin 2020-05- No [id number] 500ug Take 1 U nivers B-12 05-18 tablet by ity of (VITAMIN 00:00: 00:00 mouth [place] B-12) 500 00 :00 daily. Medical mcg tablet Branch vitamin 2020-05- No [id number] 500ug Take 1 U nivers B-12 05-18 tablet by ity of (VITAMIN 00:00: 00:00 mouth [place] B-12) 500 00 :00 daily. Medical mcg tablet Branch vitamin 2020-05- No [id number] 500ug Take 1 U nivers B-12 05-18 tablet by ity of (VITAMIN 00:00: 00:00 mouth [place] B-12) 500 00 :00 daily. Medical mcg tablet Branch vitamin 2020-05- No [id number] 500ug Take 1 U nivers B-12 05-18 tablet by ity of (VITAMIN 00:00: 00:00 mouth [place] B-12) 500 00 :00 daily. Medical mcg tablet Branch vitamin 2020-05- No [id number] 500ug Take 1 U nivers B-12 05-18 tablet by ity of (VITAMIN 00:00: 00:00 mouth [place] B-12) 500 00 :00 daily. Medical mcg tablet Branch vitamin 2020-05- No [id number] 500ug Take 1 U nivers B-12 05-18 tablet by ity of (VITAMIN 00:00: 00:00 mouth [place] B-12) 500 00 :00 daily. Medical mcg tablet Branch vitamin 2020-05- No [id number] 500ug Take 1 U nivers B-12 05-18 tablet by ity of (VITAMIN 00:00: 00:00 mouth [place] B-12) 500 00 :00 daily. Medical mcg tablet Branch methylPREDN 2020-05- No [id number] Follow Univers ISolone 4 05-16 package ity of mg tablets 00:00: 00:00 directions [place] 00 :00 Medical Branch methylPREDN 2020-05- No [id number] Follow Univers ISolone 4 05-16 package ity of mg tablets 00:00: 00:00 directions 00 :00 Medical Branch methylPREDN 2020-05- No [id number] Follow Univers ISolone 4 05-16 package ity of mg tablets 00:00: 00:00 directions 00 :00 Medical Branch fluticasone 2021- No [id number] 2{puff} Inhale 2 [facility] propion-chel 02-09-13 Puffs 2 ity of meteroL 00:00: 00:00 (two) [place] 115- 00 :00 times Medical mcg/actuati daily. Branch on inhaler Rinse mouth after each use. albuterol 2021- No [id number] 2.5mg Inhale 3 Univers 2.5 mg /3 02-09-13 mL every 6 ity of mL (0.083 00:00: 00:00 (six) [place] %) 00 :00 hours as Medical nebulizer needed for Bran ch solution Wheezing or Shortness of Breath. fluticasone 2021- No [id number] 2{puff} Inhale 2 [facility] propion-chel 9-30 -13 Puffs 2 ity of meteroL 00:00: 00:00 (two) [place] 115- 00 :00 times Medical mcg/actuati daily. Branch on inhaler Rinse mouth after each use. albuterol 2021- No [id number] 2.5mg Inhale 3 Univers 2.5 mg /3 02-09-13 mL every 6 ity of mL (0.083 00:00: 00:00 (six) [place] %) 00 :00 hours as Medical nebulizer needed for Bran ch solution Wheezing or Shortness of Breath. fluticasone 2021- No [id number] 2{puff} Inhale 2 [facility] propion-chel 9-30 -13 Puffs 2 ity of meteroL 00:00: 00:00 (two) [place] 115-21 00 :00 times Medical mcg/actuati daily. Branch on inhaler Rinse mouth after each use. albuterol 2021- No [id number] 2.5mg Inhale 3 Univers 2.5 mg /3 02-09-13 mL every 6 ity of mL (0.083 00:00: 00:00 (six) [place] %) 00 :00 hours as Medical nebulizer needed for Bran ch solution Wheezing or Shortness of Breath. fluticasone 2021- No [id number] 2{puff} Inhale 2 Univers propion-chel 02-09 01-13 Puffs 2 ity of meteroL 00:00: 00:00 (two) [place] 115-21 00 :00 times Medical mcg/actuati daily. Branch on inhaler Rinse mouth after each use. albuterol 2021- No [id number] 2.5mg Inhale 3 Univers 2.5 mg /3 02-0913 mL every 6 ity of mL (0.083 00:00: 00:00 (six) [place] %) 00 :00 hours as Medical nebulizer needed for Bran ch solution Wheezing or Shortness of Breath. methocarbam 2020- No [id number] 500mg Take 1 [facility] oL 02-09 tablet by ity of (ROBAXIN) 00:00: 00:00 mouth [place] 500 mg 00 :00 every 6 Medical tablet (six) Branch hours as needed (MUSCLE SPASM). methocarbam 2020- No [id number] 500mg Take 1 [facility] oL 02-09 tablet by ity of (ROBAXIN) 00:00: 00:00 mouth [place] 500 mg 00 :00 every 6 Medical tablet (six) Branch hours as needed (MUSCLE SPASM). bromphenira 2020- No [id number] 5mL Take 5 mL Univers mine-pseudo 01-31 by mouth 4 i ty of ephedrine-D 00:00: 00:00 (four) [place] as M (BROMFED 00 :00 times Medical DM) 2-30-10 daily as Bran ch mg/5 mL needed for syrup Cough. methylPREDN 2020- No [id number] Take by [facility] ISolone 01-20 mouth ity of (MEDROL, 00:00: 00:00 [place]-INSTRU [place] A[place],) 4 mg 00 :00 CTIONS. Medica l tablets follow Branch package directions methylPREDN 2020- No [id number] Take by [facility] 01-20 mouth ity of (MEDROL, 00:00: 00:00 [place]-INSTRU [place] 4 mg 00 :00 CTIONS. Medica l tablets follow Branch package directions methylPREDN 2020- No [id number] Take by [facility] 01-20 mouth ity of (MEDROL, 00:00: 00:00 [place]-INSTRU [place] 4 mg 00 :00 CTIONS. Medica l tablets follow Branch package directions albuterol 2021- No [id number] 2{puff} Inhale 2 [place] [address] 01-12 [id number] Puffs ity of mcg/actuati 00:00: 00:00 every 4 [place] on inhaler 00 :00 (four) Medical hours as Branch needed for Wheezing or Shortness of Breath. albuterol 2021- No [id number] 2{puff} Inhale 2 [place] [address] 01-12 [id number] Puffs ity of mcg/actuati 00:00: 00:00 every 4 [place] on inhaler 00 :00 (four) Medical hours as Branch needed for Wheezing or Shortness of Breath. albuterol 2021- No [id number] 2{puff} Inhale 2 [place] [address] 01-12 [id number] Puffs ity of mcg/actuati 00:00: 00:00 every 4 [place] on inhaler 00 :00 (four) Medical hours as Branch needed for Wheezing or Shortness of Breath. albuterol 2021- No [id number] 2{puff} Inhale 2 [place] [address] 01-12 [id number] Puffs ity of mcg/actuati 00:00: 00:00 every 4 [place] on inhaler 00 :00 (four) Medical hours as Branch needed for Wheezing or Shortness of Breath. albuterol 2021- No [id number] 2{puff} Inhale 2 [place] [address] 01-12 [id number] Puffs ity of mcg/actuati 00:00: 00:00 every 4 [place] on inhaler 00 :00 (four) Medical hours as Branch needed for Wheezing or Shortness of Breath. albuterol 2021- No [id number] 2{puff} Inhale 2 [facility] 90 01-12 [id number] Puffs ity of mcg/actuati 00:00: 00:00 every 4 [place] on inhaler 00 :00 (four) Medical hours as Branch needed for Wheezing or Shortness of Breath. albuterol 2021- No [id number] 2{puff} Inhale 2 [facility] 90 01-12 [id number] Puffs ity of mcg/actuati 00:00: 00:00 every 4 [place] on inhaler 00 :00 (four) Medical hours as Branch needed for Wheezing or Shortness of Breath. benzonatate 2020- No [id number] 100mg Take 1 [facility] 100 mg 01-12 [id number] capsule by ity of capsule 00:00: 00:00 mouth 3 [place] 00 :00 (three) Medical times Branch daily as needed for Cough. benzonatate 2020- No [id number] 100mg Take 1 [facility] 100 mg 01-12 [id number] capsule by ity of capsule 00:00: 00:00 mouth 3 [place] 00 :00 (three) Medical times Branch daily as needed for Cough. benzonatate 2020- No [id number] 100mg Take 1 [facility] 100 mg 01-12 [id number] capsule by ity of capsule 00:00: 00:00 mouth 3 [place] 00 :00 (three) Medical times Branch daily [...] mg 11-21 ity of tablet 00:00: 00:00 [place] 00 :00 Medical Branch OXcarbazepi 2020- No Unive rs ne 150 mg 11-2130 ity of tablet 00:00: 00:00 [place] 00 :00 Medical Branch OXcarbazepi 2020- No Unive rs ne 150 mg 11-2130 ity of tablet 00:00: 00:00 [place] 00 :00 Medical Branch OXcarbazepi 2020- No Unive rs ne 150 mg 11-21 ity of tablet 00:00: 00:00 [place] 00 :00 Medical Branch FLUoxetine No Univer s 40 mg 11-21 ity of capsule 00:00: 00:00 [place] 00 :00 Medical Branch traZODone 2020- No Univers 100 mg 11-21 ity of tablet 00:00: 00:00 [place] 00 :00 Medical Branch dicyclomine 2020- No [id number] 20mg Take 1 [facility] 20 mg 10-20-16 tablet by ity of tablet 00:00: 00:00 mouth 4 [place] 00 :00 (four) Medical times Branch daily. proMETHazin 2020- No [id number] 25mg Take 1 Univers e 25 mg [...] Branch NEEDED FOR PAIN oxybutynin 2020- No [id number] 10mg Take 1 Univers (DITROPAN 5-30 08-16 tablet by ity of XL) 10 mg 00:00: 00:00 mouth [place] 24 hr 00 :00 daily. Medical tablet Branch ondansetron 2020-0 2020- No [id number] 4mg Take 1 Univers (ZOFRAN 5-30 08-16 tablet by ity of ODT) 4 mg 00:00: 00:00 mouth [place] disintegrat 00 :00 every 8 Medic al ing tablet (eight) Branch hours as needed for Nausea and Vomiting (N/V). oxybutynin 2020-0 2020- No [id number] 10mg Take 1 Univers (DITROPAN 5-30 08-16 tablet by ity of XL) 10 mg 00:00: 00:00 mouth [place] 24 hr 00 :00 daily. Medical tablet Branch ondansetron 2020-0 2020- No [id number] 4mg Take 1 [facility] (ZOFRAN 5-30 08-16 tablet by ity of ODT) 4 mg 00:00: 00:00 mouth [place] disintegrat 00 :00 every 8 Medic al ing tablet (eight) Branch hours as needed for Nausea and Vomiting (N/V). oxybutynin 2020-0 2020- No [id number] 10mg Take 1 [facility] (DITROPAN 5-30 08-16 tablet by ity of XL) 10 mg 00:00: 00:00 mouth [place] 24 hr 00 :00 daily. Medical tablet Branch ondansetron 2020-2020- No [id number] 4mg Take 1 [facility] (ZOFRAN 5-30 08-16 tablet by ity of ODT) 4 mg 00:00: 00:00 mouth [place] disintegrat 00 :00 every 8 Medic al ing tablet (eight) Branch hours as needed for Nausea and Vomiting (N/V). oxybutynin 2020-0 2020- No [id number] 10mg Take 1 Univers (DITROPAN 5-30 08-16 tablet by ity of XL) 10 mg 00:00: 00:00 mouth [place] 24 hr 00 :00 daily. Medical tablet Branch ondansetron 2020-0 2020- No [id number] 4mg Take 1 [facility] (ZOFRAN 5-30 08-16 tablet by ity of ODT) 4 mg 00:00: 00:00 mouth [place] disintegrat 00 :00 every 8 Medic al ing tablet (eight) Branch hours as needed for Nausea and Vomiting (N/V). ciprofloxac 2020- No [id number] 500mg Take 1 [facility] in HCl 500 5-30 -13 tablet by ity of mg tablet 00:00: 00:00 mouth 2 [place] 00 :00 (two) Medical times Branch daily. ciprofloxac 2020- No [id number] 500mg Take 1 [facility] in HCl 500 5-30 -13 tablet by ity of mg tablet 00:00: 00:00 mouth 2 [place] 00 :00 (two) Medical times Branch daily. ciprofloxac 2020- No [id number] 500mg Take 1 [facility] in HCl 500 5-30 -13 tablet by ity of mg tablet 00:00: 00:00 mouth 2 [place] 00 :00 (two) Medical times Branch daily. predniSONE 2020- No [id number] 20mg Take 1 [facility] 20 mg 5-25 -13 tablet by ity of tablet 00:00: 00:00 mouth [place] 00 :00 daily. Medical Days 1-2: Branch 3 pills (60 mg). Days 3-4: 2 pills (40 mg). Days 5-6: 1 pill (20 mg). Days 7-8: 1/2 pill (10 mg). Then stop predniSONE 2020- No [id number] 20mg Take 1 [facility] 20 mg 5-25 -13 tablet by ity of tablet 00:00: 00:00 mouth [place] 00 :00 daily. Medical Days 1-2: Branch 3 pills (60 mg). Days 3-4: 2 pills (40 mg). Days 5-6: 1 pill (20 mg). Days 7-8: 1/2 pill (10 mg). Then stop predniSONE 2020- No [id number] 20mg Take 1 [facility] 20 mg 5-25 07-13 tablet by ity of tablet 00:00: 00:00 mouth [place] 00 :00 daily. Medical Days 1-2: Branch 3 pills (60 mg). Days 3-4: 2 pills (40 mg). Days 5-6: 1 pill (20 mg). Days 7-8: 1/2 pill (10 mg). Then stop predniSONE 2020- No [id number] 20mg Take 1 [facility] 20 mg 5-25 07-13 tablet by ity of tablet 00:00: 00:00 mouth [place] 00 :00 daily. Medical Days 1-2: Branch 3 pills (60 mg). Days 3-4: 2 pills (40 mg). Days 5-6: 1 pill (20 mg). Days 7-8: 1/2 pill (10 mg). Then stop predniSONE 2020- No [id number] 20mg Take 1 [facility] 20 mg 5-25 07-13 tablet by ity of tablet 00:00: 00:00 mouth [place] 00 :00 daily. Medical Days 1-2: Branch 3 pills (60 mg). Days 3-4: 2 pills (40 mg). Days 5-6: 1 pill (20 mg). Days 7-8: 1/2 pill (10 mg). Then stop predniSONE 2020- No [id number] 20mg Take 1 [facility] 20 mg 5-25 07-13 tablet by ity of tablet 00:00: 00:00 mouth [place] 00 :00 daily. Medical Days 1-2: Branch 3 pills (60 mg). Days 3-4: 2 pills (40 mg). Days 5-6: 1 pill (20 mg). Days 7-8: 1/2 pill (10 mg). Then stop predniSONE 2020- No [id number] 20mg Take 1 [facility] 20 mg 5-25 07-13 tablet by ity of tablet 00:00: 00:00 mouth [place] 00 :00 daily. Medical Days 1-2: Branch 3 pills (60 mg). Days 3-4: 2 pills (40 mg). Days 5-6: 1 pill (20 mg). Days 7-8: 1/2 pill (10 mg). Then stop predniSONE 2020- No [id number] 20mg Take 1 [facility] 20 mg 5-25 07-13 tablet by ity of tablet 00:00: 00:00 mouth [place] 00 :00 daily. Medical Days 1-2: Branch 3 pills (60 mg). Days 3-4: 2 pills (40 mg). Days 5-6: 1 pill (20 mg). Days 7-8: 1/2 pill (10 mg). Then stop predniSONE 2020- No [id number] 20mg Take 1 [facility] 20 mg -11-22 tablet by ity of tablet 00:00: 00:00 mouth [place] 00 :00 daily. Medical Days 1-2: Branch 3 pills (60 mg). Days 3-4: 2 pills (40 mg). Days 5-6: 1 pill (20 mg). Days 7-8: 1/2 pill (10 mg). Then stop predniSONE 2020- No [id number] 20mg Take 1 [facility] 20 mg 5-25 - tablet by ity of tablet 00:00: 00:00 mouth [place] 00 :00 daily. Medical Days 1-2: Branch 3 pills (60 mg). Days 3-4: 2 pills (40 mg). Days 5-6: 1 pill (20 mg). Days 7-8: 1/2 pill (10 mg). Then stop mupirocin 2 2020- No [id number] Apply to [facility] % ointment 5-20 - both ity of 00:00: 00:00 nostrils [place] 00 :00 at [facility] mupirocin 2 2020- No [id number] Apply to [facility] % ointment 5-20 - both ity of 00:00: 00:00 nostrils [place] 00 :00 at [facility] mupirocin 2 2020- No [id number] Apply to [facility] % ointment 5-20 - both ity of 00:00: 00:00 nostrils [place] 00 :00 at [facility] mupirocin 2 2020- No [id number] Apply to Univers % ointment 5-20 - both ity of 00:00: 00:00 nostrils [place] 00 :00 at [facility] mupirocin 2 2020- No [id number] Apply to Univers % ointment 5-20 - both ity of 00:00: 00:00 nostrils [place] 00 :00 at [facility] mupirocin 2 2020- No [id number] Apply to [facility] % ointment 5-20 - both ity of 00:00: 00:00 [facility]rils [place] [facility] mupirocin 2 2020- No [id number] Apply to [facility] % ointment 5-20 08-16 both ity of 00:00: 00:00 nostrils [place] 00 :00 at bedtime Medical Branch mupirocin 2 2020- No [id number] Apply to [facility] % ointment 5-20 08-16 both ity of 00:00: 00:00 nostrils [place] 00 :00 at bedtime Medical Branch mupirocin 2 2020- No [id number] Apply to [facility] % ointment 5-20 08-16 both ity of 00:00: 00:00 nostrils [place] 00 :00 at bedtime Medical Branch mupirocin 2 2020- No [id number] Apply to [facility] % ointment 5-20 08-16 both ity of 00:00: 00:00 nostrils [place] 00 :00 at bedtime Medical Branch mupirocin 2 2020- No [id number] Apply to [facility] % ointment 5-20 08-16 both ity of 00:00: 00:00 nostrils [place] [facility] :[facility] naproxen 2020- No [id number] 550mg Take 1 U nivers sodium 09-28-16 tablet by ity of (ANAPROX 00:00: 00:00 mouth 2 [place] DS) 550 mg 00 :00 (two) Medical tablet times Branch daily with meals. naproxen 2020- No [id number] 550mg Take 1 U nivers sodium 09-28-16 tablet by ity of (ANAPROX 00:00: 00:00 mouth 2 [place] DS) 550 mg 00 :00 (two) Medical tablet times Branch daily with meals. naproxen 2020- No [id number] 550mg Take 1 U nivers sodium -29 12-16 tablet by ity of (ANAPROX 00:00: 00:00 mouth 2 [place] DS) 550 mg 00 :00 (two) Medical tablet times Branch daily with meals. naproxen 2020- No [id number] 550mg Take 1 U nivers sodium 09-28-16 tablet by ity of (ANAPROX 00:00: 00:00 mouth 2 [place] DS) 550 mg 00 :00 (two) Medical tablet times Branch daily with meals. naproxen No [id number] 550mg Take 1 U nivers sodium 5-19 08-16 tablet by ity of (ANAPROX 00:00: 00:00 mouth 2 [place] DS) 550 mg 00 :00 (two) Medical tablet times Branch daily with meals. naproxen No [id number] 550mg Take 1 U nivers sodium 5-19 08-16 tablet by ity of (ANAPROX 00:00: 00:00 mouth 2 [place] DS) 550 mg 00 :00 (two) Medical tablet times Branch daily with meals. naproxen No [id number] 550mg Take 1 U nivers sodium 5-19 08-16 tablet by ity of (ANAPROX 00:00: 00:00 mouth 2 [place] DS) 550 mg 00 :00 (two) Medical tablet times Branch daily with meals. naproxen No [id number] 550mg Take 1 U nivers sodium 5-19 08-16 tablet by ity of (ANAPROX 00:00: 00:00 mouth 2 [place] DS) 550 mg 00 :00 (two) Medical tablet times Branch daily with meals. naproxen No [id number] 550mg Take 1 U nivers sodium 5-19 08-16 tablet by ity of (ANAPROX 00:00: 00:00 mouth 2 [place] DS) 550 mg 00 :00 (two) Medical tablet times Branch daily with meals. naproxen 2020- No [id number] 550mg Take 1 U nivers sodium 5-19 08-16 tablet by ity of (ANAPROX 00:00: 00:00 mouth 2 [place] DS) 550 mg 00 :00 (two) Medical tablet times Branch daily with meals. naproxen 2020- No [id number] 550mg Take 1 U nivers sodium 5-19 08-16 tablet by ity of (ANAPROX 00:00: 00:00 mouth 2 [place] DS) 550 mg 00 :00 (two) Medical tablet times Branch daily with meals. losartan 25 2021-0 2021- No 25mg Take 1 [facility] vers mg tablet 09-16 tablet by ity of 00:00: 00:00 mouth 2 [place] 00 :00 (two) Medical times Branch daily. nadoloL 2020- No [id number] Please [facility] mg tablet 09-16 take ity of 00:00: 00:00 Nadalol 40 [place] 00 :00 mg QA Medical Branch losartan 25 2020- No 25mg Take 1 [facility] vers mg tablet 09-16 tablet by ity of 00:00: 00:00 mouth 2 [place] 00 :00 (two) Medical times Branch daily. nadoloL 2020- No [id number] Please [facility] mg tablet 09-16 take ity of 00:00: 00:00 Nadalol 40 [place] 00 :00 mg QA Medical Branch losartan 25 2020- No 25mg Take 1 [facility] vers mg tablet 09-16 tablet by ity of 00:00: 00:00 mouth 2 [place] 00 :00 (two) Medical times Branch daily. nadoloL 2020- No [id number] Please [facility] mg tablet 09-16 take ity of 00:00: 00:00 Nadalol 40 [place] 00 :00 mg QA Medical Branch losartan 25 2020- No 25mg Take 1 [facility] vers mg tablet 09-16 tablet by ity of 00:00: 00:00 mouth 2 [place] 00 :00 (two) Medical times Branch daily. nadoloL 2020- No [id number] Please [facility] mg tablet 09-16 take ity of 00:00: 00:00 Nadalol 40 [place] 00 :00 mg QA Medical Branch losartan 25 2020- No 25mg Take 1 [facility] vers mg tablet 09-16 tablet by ity of 00:00: 00:00 mouth 2 [place] 00 :00 (two) Medical times Branch daily. nadoloL 2020- No [id number] Please [facility] mg tablet 09-16 take ity of 00:00: 00:00 Nadalol 40 [place] 00 :00 mg QA Medical Branch losartan 25 2020- No 25mg Take 1 [facility] vers mg tablet 5-07 08-12 tablet by ity of 00:00: 00:00 mouth 2 [place] 00 :00 (two) Medical times Branch daily. nadoloL 2020- No [id number] Please [facility] mg tablet 09-16 take ity of 00:00: 00:00 Nadalol 40 [place] 00 :00 mg QA Medical Branch losartan 25 2020- No 25mg Take 1 [facility] vers mg tablet 09-16 tablet by ity of 00:00: 00:00 mouth 2 [place] 00 :00 (two) Medical times Branch daily. nadoloL 2020- No [id number] Please [facility] mg tablet 09-16 take ity of 00:00: 00:00 Nadalol 40 [place] 00 :00 mg QA Medical Branch losartan 25 2020- No 25mg Take 1 [facility] vers mg tablet 09-16 tablet by ity of 00:00: 00:00 mouth 2 [place] 00 :00 (two) Medical times Branch daily. nadoloL 2020- No [id number] Please [facility] mg tablet 09-16 take ity of 00:00: 00:00 Nadalol 40 [place] 00 :00 mg QA Medical Branch losartan 25 2020- No 25mg Take 1 [facility] vers mg tablet 09-16 tablet by ity of 00:00: 00:00 mouth 2 [place] 00 :00 (two) Medical times Branch daily. nadoloL 2020- No [id number] Please [facility] mg tablet 09-16 take ity of 00:00: 00:00 Nadalol 40 [place] 00 :00 mg QA Medical Branch losartan 25 2020- No 25mg Take 1 [facility] vers mg tablet 09-16 tablet by ity of 00:00: 00:00 mouth 2 [place] 00 :00 (two) Medical times Branch daily. nadoloL 2020- No [id number] Please [facility] mg tablet 09-16 take ity of 00:00: 00:00 Nadalol 40 [place] 00 :00 mg QAM Medical Branch losartan 25 2020- No 25mg Take 1 [facility] vers mg tablet 09-16 tablet by ity of 00:00: 00:00 mouth 2 [place] 00 :00 (two) Medical times Branch daily. nadoloL 20 2020- No [id number] Please [facility] mg tablet 09-16 take ity of 00:00: 00:00 Nadalol 40 [place] 00 :00 mg QAM Medical Branch LOESTRIN FE 2020- No [id number] 1{tbl} Take 1 [facility] (LOESTRIN 4-27 -30 tablet by ity of FE 06/01) 1 00:00: 00:00 mouth [place] mg-20 mcg 00 :00 daily. Medical (21)/75 mg Branch (7) tablet LOESTRIN FE 2020- No [id number] 1{tbl} Take 1 [facility] (LOESTRIN 4-27 -30 tablet by ity of FE 06/01) 1 00:00: 00:00 mouth [place] mg-20 mcg 00 :00 daily. Medical (21)/75 mg Branch (7) tablet LOESTRIN FE 2020- No [id number] 1{tbl} Take 1 [facility] (LOESTRIN 4-27 -30 tablet by ity of FE 06/01) 1 00:00: 00:00 mouth [place] mg-20 mcg 00 :00 daily. Medical (21)/75 mg Branch (7) tablet LOESTRIN FE 2020- No [id number] 1{tbl} Take 1 [facility] (LOESTRIN 4-27 -30 tablet by ity of FE 06/01) 1 00:00: 00:00 mouth [place] mg-20 mcg 00 :00 daily. Medical (21)/75 mg Branch (7) tablet LOESTRIN FE 2020- No [id number] 1{tbl} Take 1 [facility] (LOESTRIN 4-27 -30 tablet by ity of FE 06/01) 1 00:00: 00:00 mouth [place] mg-20 mcg 00 :00 daily. Medical (21)/75 mg Branch (7) tablet LOESTRIN FE 2020- No [id number] 1{tbl} Take 1 [facility] (LOESTRIN 4-27 -30 tablet by ity of FE 06/01) 1 00:00: 00:00 mouth [place] mg-20 mcg 00 :00 daily. Medical (21)/75 mg Branch (7) tablet LOESTRIN FE 2020-0 2020- No [id number] 1{tbl} Take 1 [facility] (LOESTRIN 4-27 -30 tablet by ity of FE 06/01) 1 00:00: 00:00 mouth [place] mg-20 mcg 00 :00 daily. Medical (21)/75 mg Branch (7) tablet LOESTRIN FE 2020-0 2020- No [id number] 1{tbl} Take 1 [facility] (LOESTRIN 4-27 -30 tablet by ity of FE 06/01) 1 00:00: 00:00 mouth [place] mg-20 mcg 00 :00 daily. Medical (21)/75 mg Branch (7) tablet LOESTRIN FE 2020-0 2020- No [id number] 1{tbl} Take 1 [facility] (LOESTRIN 4-27 -30 tablet by ity of FE 06/01) 1 00:00: 00:00 mouth [place] mg-20 mcg 00 :00 daily. Medical (21)/75 mg Branch (7) tablet LOESTRIN FE 2020-0 2020- No [id number] 1{tbl} Take 1 [facility] (LOESTRIN 4-27 -30 tablet by ity of FE 06/01) 1 00:00: 00:00 mouth [place] mg-20 mcg 00 :00 daily. Medical (21)/75 mg Branch (7) tablet LOESTRIN FE 2020-0 2020- No [id number] 1{tbl} Take 1 [facility] (LOESTRIN 4-27 -30 tablet by ity of FE 06/01) 1 00:00: 00:00 mouth [place] mg-20 mcg 00 :00 daily. Medical (21)/75 mg Branch (7) tablet LOESTRIN FE 2020-0 2020- No [id number] 1{tbl} Take 1 [facility] (LOESTRIN 4-27 -30 tablet by ity of FE 06/01) 1 00:00: 00:00 mouth [place] mg-20 mcg 00 :00 daily. Medical (21)/75 mg Branch (7) tablet LOESTRIN FE 2020-0 2020- No [id number] 1{tbl} Take 1 [facility] (LOESTRIN 4-27 -30 tablet by ity of FE 06/01) 1 00:00: 00:00 mouth [place] mg-20 mcg 00 :00 daily. Medical (21)/75 mg Branch (7) tablet LOESTRIN FE 2020- No [id number] 1{tbl} Take 1 [facility] (LOESTRIN 4-27 09-30 tablet by ity of FE 06/01) 1 00:00: 00:00 mouth [place] mg-20 mcg 00 :00 daily. Medical (21)/75 mg Branch (7) tablet FLUoxetine 2020- No [id number] 20mg Take 1 [facility] 20 mg 4-27 07-13 capsule by ity of capsule 00:00: 00:00 mouth [place] 00 :00 daily. [facility] Branch traZODone 2020- No [id number] 50mg Take 1 [facility] 50 mg 4-27 07-13 tablet by ity of tablet 00:00: 00:00 mouth at [place] 00 :00 bedtime. [facility] Branch FLUoxetine 2020- No [id number] 20mg Take 1 [facility] 20 mg 4-27 07-13 capsule by ity of capsule 00:00: 00:00 mouth [place] 00 :00 daily. [facility] Branch traZODone 2020- No [id number] 50mg Take 1 [facility] 50 mg 4-27 07-13 tablet by ity of tablet 00:00: 00:00 mouth at [place] 00 :00 bedtime. [facility] Branch FLUoxetine 2020- No [id number] 20mg Take 1 [facility] 20 mg 4-27 07-13 capsule by ity of capsule 00:00: 00:00 mouth [place] 00 :00 daily. [facility] Branch traZODone 2020- No [id number] 50mg Take 1 [facility] 50 mg 4-27 07-13 tablet by ity of tablet 00:00: 00:00 mouth at [place] 00 :00 bedtime. [facility] Branch FLUoxetine 2020- No [id number] 20mg Take 1 [facility] 20 mg 4-27 07-13 capsule by ity of capsule 00:00: 00:00 mouth [place] 00 :00 daily. [facility] Branch traZODone 2020- No [id number] 50mg Take 1 [facility] 50 mg 4-27 07-13 tablet by ity of tablet 00:00: 00:00 mouth at [place] 00 :00 bedtime. [facility] Branch FLUoxetine 2020- No [id number] 20mg Take 1 [facility] 20 mg 4-27 07-13 capsule by ity of capsule 00:00: 00:00 mouth [place] 00 :00 daily. [facility] Branch traZODone 2020- No [id number] 50mg Take 1 [facility] 50 mg 4-27 07-13 tablet by ity of tablet 00:00: 00:00 mouth at [place] 00 :00 bedtime. [facility] Branch FLUoxetine 2020- No [id number] 20mg Take 1 [facility] 20 mg 4-27 07-13 capsule by ity of capsule 00:00: 00:00 mouth [place] 00 :00 daily. [facility] traZODone 2020- No [id number] 50mg Take 1 [facility] 50 mg 4-27 07-13 tablet by ity of tablet 00:00: 00:00 mouth at [place] 00 :00 bedtime. [facility] FLUoxetine 2020- No [id number] 20mg Take 1 [facility] 20 mg 4-27 07-13 capsule by ity of capsule 00:00: 00:00 mouth [place] 00 :00 daily. [facility] traZODone 2020- No [id number] 50mg Take 1 [facility] 50 mg 4-27 07-13 tablet by ity of tablet 00:00: 00:00 mouth at [place] 00 :00 bedtime. [facility] FLUoxetine 2020- No [id number] 20mg Take 1 [facility] 20 mg 4-27 07-13 capsule by ity of capsule 00:00: 00:00 mouth [place] 00 :00 daily. [facility] traZODone 2020- No [id number] 50mg Take 1 [facility] 50 mg 4-27 07-13 tablet by ity of tablet 00:00: 00:00 mouth at [place] 00 :00 bedtime. [facility] FLUoxetine 2020- No [id number] 20mg Take 1 [facility] 20 mg 4-27 07-13 capsule by ity of capsule 00:00: 00:00 mouth [place] 00 :00 daily. [facility] traZODone 2020- No [id number] 50mg Take 1 [facility] 50 mg 4-27 07-13 tablet by ity of tablet 00:00: 00:00 mouth at [place] 00 :00 bedtime. Medical Branch FLUoxetine 2020- No [id number] 20mg Take 1 [facility] 20 mg 09-06 capsule by ity of capsule 00:00: 00:00 mouth [place] 00 :00 daily. Medical Branch traZODone 2020- No [id number] 50mg Take 1 [facility] 50 mg 09-06 tablet by ity of tablet 00:00: 00:00 mouth at [place] 00 :00 bedtime. Medical Branch nadoloL 20 2020- No [id number] Please [facility] mg tablet 08-31 take ity of 00:00: 00:00 Nadalol 40 [place] 00 :00 mg QAM and Medical 20 mg QPM Branch methocarbam 2020- No [id number] 500mg Take 1 [facility] oL 08-18 tablet [...] Branch NEEDED FOR PAIN ondansetron 2020- No [id number] 4mg Take 1 [facility] (ZOFRAN 08-01 [id number] tablet by ity of ODT) 4 mg 00:00: 00:00 mouth [place] disintegrat 00 :00 every 8 Medic al ing tablet (eight) Branch hours as needed for Nausea and Vomiting (N/V). ketorolac 2020- No [id number] 10mg Take 1 [facility] 10 mg 08-01 [id number] tablet by ity of tablet 00:00: 00:00 mouth [place] 00 :00 every 6 Medical (six) Branch hours as needed for Pain (scale 4-6). ciprofloxac 2020- No [id number] 250mg Take 1 [facility] in HCl 250 08-01 [id number] tablet by i ty of mg tablet 00:00: 00:00 mouth 2 [place] 00 :[place] (two) Medical times Branch daily. lidocaine 5 2020- No [id number] 1{patch Apply 1 [facility] % (700 3-12 05-21 } Patch to ity of mg/patch) 00:00: 00:00 area(s) [place] patch 00 :00 every 24 Medical (twenty-fo Branch ur) hours as needed for Localized pain. topiramate 2020-0 2021- No 25mg Take 1 Univ ers 25 mg 1-05 07-13 tablet by ity of tablet 00:00: 00:00 mouth 2 [place] 00 :00 (two) Medical times Branch daily. topiramate 2020-0 2021- No 25mg Take 1 Univ ers 25 mg 1-05 07-13 tablet by ity of tablet 00:00: 00:00 mouth 2 [place] 00 :00 (two) Medical times Branch daily. topiramate 2020-0 2021- No 25mg Take 1 Univ ers 25 mg 1-05 07-13 tablet by ity of tablet 00:00: 00:00 mouth 2 [place] 00 :00 (two) Medical times Branch daily. topiramate 2020-0 2021- No 25mg Take 1 Univ ers 25 mg 1-05 07-13 tablet by ity of tablet 00:00: 00:00 mouth 2 [place] 00 :00 (two) Medical times Branch daily. topiramate 1-0 2021- No 25mg Take 1 Univ ers 25 mg 1-05 07-13 tablet by ity of tablet 00:00: 00:00 mouth 2 [place] 00 :00 (two) Medical times Branch daily. topiramate 2020-0 2021- No 25mg Take 1 Univ ers 25 mg 1-05 07-13 tablet by ity of tablet 00:00: 00:00 mouth 2 [place] 00 :00 (two) Medical times Branch daily. topiramate 1-0 2021- No 25mg Take 1 Univ ers 25 mg 1-05 07-13 tablet by ity of tablet 00:00: 00:00 mouth 2 [place] 00 :00 (two) Medical times Branch daily. topiramate 1-0 2021- No 25mg Take 1 Univ ers 25 mg 1-05 07-13 tablet by ity of tablet 00:00: 00:00 mouth 2 [place] 00 :00 (two) Medical times Branch daily. topiramate 2021-0 2021- No 25mg Take 1 Univ ers 25 mg 05-17- tablet by ity of tablet 00:00: 00:00 mouth 2 [place] 00 :00 (two) Medical times Branch daily. topiramate 2020- No 25mg Take 1 Univ ers 25 mg 05-17- tablet by ity of tablet 00:00: 00:00 mouth 2 [place] 00 :00 (two) Medical times Branch daily. topiramate 2020- No 25mg Take 1 Univ ers 25 mg 05-17- tablet by ity of tablet 00:00: 00:00 mouth 2 [place] 00 :00 (two) Medical times Branch daily. topiramate 2020- No 25mg Take 1 Univ ers 25 mg 05-17- tablet by ity of tablet 00:00: 00:00 mouth 2 [place] 00 :00 (two) Medical times Branch daily. topiramate 2020- No 25mg Take 1 Univ ers 25 mg 05-17 tablet by ity of tablet 00:00: 00:00 mouth 2 [place] 00 :00 (two) Medical times Branch daily. metoprolol 2019-05 No [id number] 12.5mg Take 0.5 [facility] succinate 07-03 tablets by ity of XL 25 mg 24 00:00: 00:00 mouth 2 [place] hr tablet 00 :00 (two) Medical times Branch daily for 90 days. metoprolol 2019-05 No [id number] 12.5mg Take 0.5 [facility] succinate 07-03- tablets by ity of XL 25 mg 24 00:00: 00:00 mouth 2 [place] hr tablet 00 :00 (two) Medical times Branch daily for 90 days. metoprolol 2019-05 No [id number] 12.5mg Take 0.5 [facility] succinate 07-03- tablets by ity of XL 25 mg 24 00:00: 00:00 mouth 2 [place] hr tablet 00 :00 (two) Medical times Branch daily for 90 days. FLUoxetine 2019-05- No 20mg Take 20 mg [facility] 20 mg 06-14 by mouth ity of capsule 00:00: 00:00 daily. [place] 00 :00 Medical Branch FLUoxetine 2019-05 No 20mg Take 20 mg [facility] 20 mg 06-14- by mouth ity of capsule 00:00: 00:00 daily. [place] 00 :00 Medical Branch norgestimat 2019- No [id number] 1{tbl} Take 1 [facility] e-ethinyl 11-17- tablet by ity of estradiol 00:00: 00:00 mouth [place] 0.25-35 00 :00 daily. Medical mg-mcg per Branch tablet buPROPion 2019- No [id number] 150mg Take 1 [facility] XL 08-12- tablet by ity of (WELLBUTRIN 00:00: 00:00 mouth [place] XL) 150 mg 00 :00 daily. Medical 24 hr Branch tablet acetaminoph 2019- No [id number] 650mg Take 2 [facility] en 325 mg 07-22-25 tablets by ity of tablet 00:00: 00:00 mouth [place] 00 :00 every 6 Medical (six) Branch hours as needed for Pain (scale 1-3) or Pain (scale 4-6). 2019- No [id number] 1{tbl} Take 1 [facility] vitamin 07-22-25 tablet by ity of w/FA tablet 00:00: 00:00 mouth [place] 00 :00 daily. Medical Branch docusate 2019- No [id number] 240mg Take 1 U nivers calcium 240 07-22- capsule by i ty of mg capsule 00:00: 00:00 mouth once [place] 00 :00 daily as Medical needed for Branch Constipati on. ferrous 2019- No [id number] 325mg Take 1 Un sushant sulfate 325 07-22-25 tablet by it y of mg (65 mg 00:00: 00:00 mouth 2 [place] iron) 00 :00 (two) Medical tablet times Branch daily. ibuprofen 2019- No [id number] 600mg Take 1 [facility] 600 mg 07-22-25 tablet by ity of tablet 00:00: 00:00 mouth [place] 00 :00 every 6 Medical (six) Branch hours as needed (Pain). Take with food or milk. ALBUTEROL 2019- No [id number] INHALE 2 Univers 90 1-14 12-20 103 PUFFS BY ity of mcg/actuati 00:00: 00:00 MOUTH [place] on inhaler 00 :00 EVERY 6 Medica l HOURS Branch NEEDED FOR WHEEZING FOR SHORTNESS OF BREATH buPROPion 2020- No [id number] 150mg Take 1 [facility] SR 05-21 tablet by ity of (WELLBUTRIN 00:00: 00:00 mouth 2 [place] SR) 150 mg 00 :00 (two) Medical SR tablet times Branch daily. busPIRone 2020- No [id number] 10mg Take 1 [facility] 10 mg 05-21 109 tablet by ity of tablet 00:00: 00:00 mouth 3 [place] 00 :00 (three) Medical times Branch daily. Immunizations Ordered Filled Date Status Comments Source Immunization Name Immunization Name Influenza Virus 2022-02-27 Completed Universit y of Vaccine Quad IM, 00:00:00 [place] [facility] Preserv and ABX Branch Free 6 MO-64 YRS Influenza Virus 2022-02-27 Completed Universit y of Vaccine Quad IM, 00:00:00 [place] Me dical Preserv and ABX Branch Free [...] Universit y of Vaccine Quad IM, 00:00:00 [place] Me dical Preserv and ABX Branch Free [...] Universit y of Vaccine Quad IM, 00:00:00 [place] Me dical Preserv and ABX Branch Free [...] y of Vaccine Quad .5 mL 00:00:00 [facility] 6+ MO Branch Influenza Virus 2022-02-21 Completed Universit y of Vaccine Quad .5 mL 00:00:00 [place] Medical IM 6+ MO Branch Influenza Virus 2022-02-21 Completed Universit y of Vaccine Quad .5 mL 00:00:00 [facility] 6+ MO Branch (FLUZONE/FLULAVAL/F LUARIX) Influenza Virus 2022-02-21 Completed Universit y of Vaccine Quad .5 mL 00:00:00 [facility] 6+ MO Branch (FLUZONE/FLULAVAL/F LUARIX) Influenza Virus 2022-02-21 Completed Universit y of Vaccine Quad .5 mL 00:00:00 [facility] 6+ MO Branch (FLUZONE/FLULAVAL/F LUARIX) Influenza Virus 2021-06-11 Completed Universit y of Vaccine 00:00:00 [facility] Influenza Virus 2021-06-11 Completed Universit y of Vaccine 00:00:00 [facility] Influenza Virus 2021-06-11 Completed Universit y of Vaccine 00:00:00 [facility] Influenza Virus 2021-06-11 Completed Universit y of Vaccine 00:00:00 [facility] Influenza Virus 2021-06-11 Completed Universit y of Vaccine 00:00:00 [facility] Influenza Virus 2021-06-11 Completed Universit y of Vaccine 00:00:00 [facility] Influenza Virus 2021-06-11 Completed Universit y of Vaccine 00:00:00 [facility] Influenza Virus 2021-06-11 Completed Universit y of Vaccine 00:00:00 [facility] Influenza Virus 2021-06-11 Completed Universit y of Vaccine 00:00:00 [facility] Influenza Virus 2021-06-11 Completed Universit y of Vaccine 00:00:00 [facility] Influenza Virus 2021-06-11 Completed Universit y of Vaccine 00:00:00 [facility] Influenza Virus 2021-06-11 Completed Universit y of Vaccine 00:00:00 [facility] Influenza Virus 2021-06-11 Completed Universit y of Vaccine 00:00:00 [facility] Influenza Virus 2021-06-11 Completed Universit y of Vaccine 00:00:00 [facility] Influenza Virus 2021-06-11 Completed Universit y of Vaccine 00:00:00 [facility] Influenza Virus 2021-06-11 Completed Universit y of Vaccine 00:00:00 [facility] Influenza Virus 2021-06-11 Completed Universit y of Vaccine 00:00:00 [facility] Influenza Virus 2021-06-11 Completed Universit y of Vaccine 00:00:00 [facility] Influenza Virus 2021-06-11 Completed Universit y of Vaccine 00:00:00 [facility] Influenza Virus 2021-06-11 Completed Universit y of Vaccine 00:00:00 [facility] Influenza Virus 2021-06-11 Completed Universit y of Vaccine 00:00:00 [facility] Influenza Virus 2021-06-11 Completed Universit y of Vaccine 00:00:00 [facility] Influenza Virus 2021-06-11 Completed Universit y of Vaccine 00:00:00 [facility] Influenza Virus 2021-06-11 Completed Universit y of Vaccine 00:00:00 [facility] Influenza Virus 2021-06-11 Completed Universit y of Vaccine 00:00:00 [facility] Influenza Virus 2021-06-11 Completed Universit y of Vaccine 00:00:00 [facility] Influenza Virus 2021-06-11 Completed Universit y of Vaccine 00:00:00 [facility] Influenza Virus 2021-06-11 Completed Universit y of Vaccine 00:00:00 [facility] Influenza Virus 2021-06-11 Completed Universit y of Vaccine 00:00:00 [facility] Influenza Virus 2021-06-11 Completed [facility] Vaccine 00:00:00 [facility] Influenza Virus 2021-06-11 Completed [facility] Vaccine 00:00:00 [facility] Influenza Virus 2021-06-11 Completed [facility] of Vaccine 00:00:00 [facility] Influenza Virus 2021-06-11 Completed [facility] of Vaccine 00:00:00 [facility] Influenza Virus 2021-06-11 Completed [facility] of Vaccine 00:00:00 [facility] Influenza Virus 2021-06-11 Completed [facility] of Vaccine 00:00:00 [facility] Influenza Virus 2021-06-11 Completed [facility] of Vaccine 00:00:00 [facility] Influenza Virus 2021-06-11 Completed [facility] of Vaccine 00:00:00 [facility] Influenza Virus 2021-06-11 Completed [facility] of Vaccine 00:00:00 [facility] Influenza Virus 2021-06-11 Completed [facility] of Vaccine 00:00:00 [facility] Influenza Virus 2021-06-11 Completed [facility] of Vaccine 00:00:00 [facility] Influenza Virus 2021-06-11 Completed [facility] of Vaccine 00:00:00 [facility] Influenza Virus 2021-06-11 Completed [facility] of Vaccine 00:00:00 [facility] Influenza Virus 2021-06-11 Completed [facility] of Vaccine 00:00:00 [facility] Influenza Virus 2021-06-11 Completed [facility] of Vaccine 00:00:00 [facility] Influenza Virus 2021-06-11 Completed [facility] of Vaccine 00:00:00 [facility] Influenza Virus 2021-06-11 Completed [facility] of Vaccine 00:00:00 [facility] Influenza Virus 2021-06-11 Completed [facility] of Vaccine 00:00:00 [facility] Influenza Virus 2021-06-11 Completed [facility] of Vaccine 00:00:00 [facility] Influenza Virus 2021-06-11 Completed [facility] of Vaccine Quad .5 mL 00:00:00 [facility] 6+ MO Branch Influenza Virus 2021-06-11 Completed [facility] of Vaccine 00:00:00 [facility] Influenza Virus 2021-06-11 Completed [facility] of Vaccine Quad .5 mL 00:00:00 [facility] 6+ MO Branch Influenza Virus 2021-06-11 Completed [facility] of Vaccine 00:00:00 [facility] Influenza Virus 2021-06-11 Completed [facility] of Vaccine Quad .5 mL 00:00:00 [facility] IM 6+ MO Branch Influenza Virus 2021-06-11 Completed [facility] of Vaccine 00:00:00 [facility] Influenza Virus 2021-06-11 Completed [facility] of Vaccine Quad .5 mL 00:00:00 [facility] IM 6+ MO Branch Influenza Virus 2021-06-11 Completed [facility] of Vaccine 00:00:00 [facility] Influenza Virus 2021-06-11 Completed [facility] of Vaccine Quad .5 mL 00:00:00 [facility] IM 6+ MO Branch Influenza Virus 2021-06-11 Completed [facility] of Vaccine 00:00:00 [facility] Influenza Virus 2021-06-11 Completed [facility] of Vaccine Quad .5 mL 00:00:00 [facility] 6+ MO Branch Influenza Virus 2021-06-11 Completed [facility] of Vaccine 00:00:00 [facility] Influenza Virus 2021-06-11 Completed [facility] of Vaccine Quad .5 mL 00:00:00 [facility] 6+ MO Branch Influenza Virus 2021-06-11 Completed [facility] of Vaccine 00:00:00 [facility] Influenza Virus 2021-06-11 Completed [facility] of Vaccine Quad .5 mL 00:00:00 [facility] 6+ MO Branch Influenza Virus 2021-06-11 Completed [facility] of Vaccine 00:00:00 [facility] Influenza Virus 2021-06-11 Completed [facility] of Vaccine Quad .5 mL 00:00:00 [facility] 6+ MO Branch Influenza Virus 2021-06-11 Completed [facility] of Vaccine 00:00:00 [facility] Influenza Virus 2021-06-11 Completed [facility] of Vaccine Quad .5 mL 00:00:00 [facility] 6+ MO Branch Influenza Virus 2021-06-11 Completed [facility] of Vaccine 00:00:00 [facility] Influenza Virus 2021-06-11 Completed [facility] of Vaccine Quad .5 mL 00:00:00 [facility] 6+ MO Branch Influenza Virus 2021-06-11 Completed [facility] of Vaccine 00:00:00 [facility] Influenza Virus 2021-06-11 Completed [facility] of Vaccine Quad .5 mL 00:00:00 [facility] 6+ MO Branch Influenza Virus 2021-06-11 Completed [facility] of Vaccine 00:00:00 [facility] Influenza Virus 2021-06-11 Completed [facility] of Vaccine Quad .5 mL 00:00:00 [facility] 6+ MO Branch Influenza Virus 2021-06-11 Completed [facility] of Vaccine 00:00:00 [facility] Influenza Virus 2021-06-11 Completed [facility] of Vaccine Quad .5 mL 00:00:00 [facility] 6+ MO Branch (FLUZONE/FLULAVAL/F LUARIX) Influenza Virus 2021-06-11 Completed [facility] of Vaccine 00:00:00 [facility] Influenza Virus 2021-06-11 Completed [facility] of Vaccine Quad .5 mL 00:00:00 [facility] 6+ MO Branch (FLUZONE/FLULAVAL/F LUARIX) Influenza Virus 2021-06-11 Completed [facility] of Vaccine 00:00:00 [facility] Influenza Virus 2021-06-11 Completed [facility] of Vaccine Quad .5 mL 00:00:00 [facility] 6+ MO Branch (FLUZONE/FLULAVAL/F LUARIX) Influenza Virus 2020-05-19 Completed [facility] of Vaccine 00:00:00 [facility] Influenza Virus 2020-05-19 Completed [facility] of Vaccine 00:00:00 [facility] Influenza Virus 2020-05-19 Completed [facility] of Vaccine 00:00:00 [facility] Influenza Virus 2020-05-19 Completed [facility] of Vaccine 00:00:00 [facility] Influenza Virus 2020-05-19 Completed [facility] of Vaccine 00:00:00 [facility] Influenza Virus 2020-05-19 Completed [facility] of Vaccine 00:00:00 [facility] Influenza Virus 2020-05-19 Completed [facility] of Vaccine 00:00:00 [facility] Influenza Virus 2020-05-19 Completed [facility] of Vaccine 00:00:00 [facility] Influenza Virus 2020-05-19 Completed [facility] of Vaccine 00:00:00 [facility] Influenza Virus 2020-05-19 Completed [facility] of Vaccine 00:00:00 [facility] Influenza Virus 2020-05-19 Completed [facility] of Vaccine 00:00:00 [facility] Influenza Virus 2020-05-19 Completed [facility] of Vaccine 00:00:00 [facility] Influenza Virus 2020-05-19 Completed [facility] of Vaccine 00:00:00 [facility] Influenza Virus 2020-05-19 Completed [facility] of Vaccine 00:00:00 [facility] Influenza Virus 2020-05-19 Completed [facility] of Vaccine 00:00:00 [facility] Influenza Virus 2020-05-19 Completed [facility] of Vaccine 00:00:00 [facility] Influenza Virus 2020-05-19 Completed [facility] of Vaccine 00:00:00 [facility] Influenza Virus 2020-05-19 Completed [facility] of Vaccine 00:00:00 [facility] Influenza Virus 2020-05-19 Completed [facility] of Vaccine 00:00:00 [facility] Influenza Virus 2020-05-19 Completed [facility] of Vaccine 00:00:00 [facility] Influenza Virus 2020-05-19 Completed [facility] of Vaccine 00:00:00 [facility] Influenza Virus 2020-05-19 Completed [facility] of Vaccine 00:00:00 [facility] Influenza Virus 2020-05-19 Completed [facility] of Vaccine 00:00:00 [facility] Influenza Virus 2020-05-19 Completed [facility] of Vaccine 00:00:00 [facility] Influenza Virus 2020-05-19 Completed [facility] of Vaccine 00:00:00 [facility] Influenza Virus 2020-05-19 Completed [facility] of Vaccine 00:00:00 [facility] Influenza Virus 2020-05-19 Completed [facility] of Vaccine 00:00:00 [facility] Influenza Virus 2020-05-19 Completed [facility] of Vaccine 00:00:00 [facility] Influenza Virus 2020-05-19 Completed [facility] of Vaccine 00:00:00 [facility] Influenza Virus 2020-05-19 Completed [facility] of Vaccine 00:00:00 [facility] Influenza Virus 2020-05-19 Completed [facility] of Vaccine 00:00:00 [facility] Influenza Virus 2020-05-19 Completed [facility] of Vaccine 00:00:00 [facility] Influenza Virus 2020-05-19 Completed [facility] of Vaccine 00:00:00 [facility] Influenza Virus 2020-05-19 Completed [facility] of Vaccine 00:00:00 [facility] Influenza Virus 2020-05-19 Completed [facility] of Vaccine 00:00:00 [facility] Influenza Virus 2020-05-19 Completed [facility] of Vaccine 00:00:00 [facility] Influenza Virus 2020-05-19 Completed [facility] of Vaccine 00:00:00 [facility] Influenza Virus 2020-05-19 Completed [facility] of Vaccine 00:00:00 [facility] Influenza Virus 2020-05-19 Completed [facility] of Vaccine 00:00:00 [facility] Influenza Virus 2020-05-19 Completed [facility] of Vaccine 00:00:00 [facility] Influenza Virus 2020-05-19 Completed [facility] of Vaccine 00:00:00 [facility] Influenza Virus 2020-05-19 Completed [facility] of Vaccine 00:00:00 [facility] Influenza Virus 2020-05-19 Completed [facility] of Vaccine 00:00:00 [facility] Influenza Virus 2020-05-19 Completed [facility] of Vaccine 00:00:00 [facility] Influenza Virus 2020-05-19 Completed [facility] of Vaccine 00:00:00 [facility] Influenza Virus 2020-05-19 Completed [facility] of Vaccine 00:00:00 [facility] Influenza Virus 2020-05-19 Completed [facility] of Vaccine 00:00:00 [facility] Influenza Virus 2020-05-19 Completed [facility] of Vaccine 00:00:00 [facility] Influenza Virus 2020-05-19 Completed [facility] of Vaccine 00:00:00 [facility] Influenza Virus 2020-05-19 Completed [facility] of Vaccine 00:00:00 [facility] Influenza Virus 2020-05-19 Completed [facility] of Vaccine 00:00:00 [facility] Influenza Virus 2020-05-19 Completed [facility] of Vaccine 00:00:00 [facility] Influenza Virus 2020-05-19 Completed [facility] of Vaccine 00:00:00 [facility] Influenza Virus 2020-05-19 Completed [facility] of Vaccine 00:00:00 [facility] Influenza Virus 2020-05-19 Completed [facility] of Vaccine 00:00:00 [facility] Influenza Virus 2020-05-19 Completed [facility] of Vaccine 00:00:00 [facility] Influenza Virus 2020-05-19 Completed [facility] of Vaccine 00:00:00 [facility] Influenza Virus 2020-05-19 Completed [facility] of Vaccine 00:00:00 [facility] Influenza Virus 2020-05-19 Completed [facility] of Vaccine 00:00:00 [facility] Influenza Virus 2020-05-19 Completed [facility] of Vaccine 00:00:00 [facility] Influenza Virus 2020-05-19 Completed [facility] of Vaccine 00:00:00 [facility] Influenza Virus 2020-05-19 Completed [facility] of Vaccine 00:00:00 [facility] Influenza Virus 2020-05-19 Completed [facility] of Vaccine 00:00:00 [facility] Influenza Virus 2020-05-16 Completed [facility] of Vaccine Recomb Quad 00:00:00 [facility], Preserv and ABX Branc h Free [...] (ADACEL) 2019-05-21 Completed University of VACCINE 00:00:00 [facility] TDAP (ADACEL) 2019-05-21 Completed [facility] of VACCINE 00:00:00 [facility] TDAP (ADACEL) 2019-05-21 Completed [facility] of VACCINE 00:00:00 [facility] TDAP (ADACEL) 2019-05-21 Completed [facility] of VACCINE 00:00:00 [facility] TDAP (ADACEL) 2019-05-21 Completed [facility] of VACCINE 00:00:00 [facility] TDAP (ADACEL) 2019-05-21 Completed [facility] VACCINE 00:00:00 [facility] TDAP (ADACEL) 2019-05-21 Completed [facility] VACCINE 00:00:00 [facility] TDAP (ADACEL) 2019-05-21 Completed [facility] of VACCINE 00:00:00 [facility] TDAP (ADACEL) 2019-05-21 Completed [facility] VACCINE 00:00:00 [facility] TDAP (ADACEL) 2019-05-21 Completed [facility] of VACCINE 00:00:00 [facility] TDAP (ADACEL) 2019-05-21 Completed [facility] of VACCINE 00:00:00 [facility] TDAP (ADACEL) 2019-05-21 Completed [facility] of VACCINE 00:00:00 [facility] TDAP (ADACEL) 2019-05-21 Completed [facility] of VACCINE 00:00:00 [facility] TDAP (ADACEL) 2019-05-21 Completed [facility] of VACCINE 00:00:00 [facility] TDAP (ADACEL) 2019-05-21 Completed [facility] of VACCINE 00:00:00 [facility] TDAP (ADACEL) 2019-05-21 Completed [facility] of VACCINE 00:00:00 [facility] TDAP (ADACEL) 2019-05-21 Completed [facility] of VACCINE 00:00:00 [facility] TDAP (ADACEL) 2019-05-21 Completed [facility] of VACCINE 00:00:00 [facility] TDAP (ADACEL) 2019-05-21 Completed [facility] of VACCINE 00:00:00 [facility] TDAP (ADACEL) 2019-05-21 Completed [facility] of VACCINE 00:00:00 [facility] TDAP (ADACEL) 2019-05-21 Completed [facility] of VACCINE 00:00:00 [facility] TDAP (ADACEL) 2019-05-21 Completed [facility] VACCINE 00:00:00 [facility] TDAP (ADACEL) 2019-05-21 Completed [facility] of VACCINE 00:00:00 [facility] TDAP (ADACEL) 2019-05-21 Completed [facility] of VACCINE 00:00:00 [facility] TDAP (ADACEL) 2019-05-21 Completed [facility] VACCINE 00:00:00 [facility] TDAP (ADACEL) 2019-05-21 Completed [facility] of VACCINE 00:00:00 [facility] TDAP (ADACEL) 2019-05-21 Completed [facility] of VACCINE 00:00:00 [facility] TDAP (ADACEL) 2019-05-21 Completed [facility] VACCINE 00:00:00 [facility] TDAP (ADACEL) 2019-05-21 Completed [facility] of VACCINE 00:00:00 [facility] TDAP (ADACEL) 2019-05-21 Completed [facility] of VACCINE 00:00:00 [facility] TDAP (ADACEL) 2019-05-21 Completed [facility] of VACCINE 00:00:00 [facility] TDAP (ADACEL) 2019-05-21 Completed [facility] of VACCINE 00:00:00 [facility] TDAP (ADACEL) 2019-05-21 Completed [facility] of VACCINE 00:00:00 [facility] TDAP (ADACEL) 2019-05-21 Completed [facility] of VACCINE 00:00:00 [facility] TDAP (ADACEL) 2019-05-21 Completed [facility] VACCINE 00:00:00 [facility] TDAP (ADACEL) 2019-05-21 Completed [facility] of VACCINE 00:00:00 [facility] TDAP (ADACEL) 2019-05-21 Completed [facility] of VACCINE 00:00:00 [facility] TDAP (ADACEL) 2019-05-21 Completed [facility] of VACCINE 00:00:00 [facility] TDAP (ADACEL) 2019-05-21 Completed [facility] of VACCINE 00:00:00 [facility] TDAP (ADACEL) 2019-05-21 Completed [facility] VACCINE 00:00:00 [facility] TDAP (ADACEL) 2019-05-21 Completed [facility] of VACCINE 00:00:00 [facility] TDAP (ADACEL) 2019-05-21 Completed [facility] of VACCINE 00:00:00 [facility] TDAP (ADACEL) 2019-05-21 Completed University [...] (ADACEL) 2019-05-21 Completed [facility] of VACCINE 00:00:00 [facility] TDAP (ADACEL) 2019-05-21 Completed [facility] of VACCINE 00:00:00 [facility] TDAP (ADACEL) 2019-05-21 Completed [facility] of VACCINE 00:00:00 [facility] TDAP (ADACEL) 2019-05-21 Completed [facility] of VACCINE 00:00:00 [facility] TDAP (ADACEL) 2019-05-21 Completed [facility] of VACCINE 00:00:00 [facility] TDAP (ADACEL) 2019-05-21 Completed [facility] of VACCINE 00:00:00 [facility] TDAP (ADACEL) 2019-05-21 Completed [facility] of VACCINE 00:00:00 [facility] TDAP (ADACEL) 2019-05-21 Completed [facility] of VACCINE 00:00:00 [facility] TDAP (ADACEL) 2019-05-21 Completed [facility] of VACCINE 00:00:00 [facility] TDAP (ADACEL) 2019-05-21 Completed [facility] of VACCINE 00:00:00 [facility] TDAP (ADACEL) 2019-05-21 Completed [facility] of VACCINE 00:00:00 [facility] TDAP (ADACEL) 2019-05-21 Completed [facility] of VACCINE 00:00:00 [facility] TDAP (ADACEL) 2019-05-21 Completed [facility] of VACCINE 00:00:00 [facility] TDAP (ADACEL) 2019-05-21 Completed [facility] of VACCINE 00:00:00 [facility] Influenza Virus 2019-02-06 Completed [facility] of Vaccine Quad .5 mL 00:00:00 [facility] 6[facility] MO [facility] Influenza Virus 2019-02-06 Completed [facility] of Vaccine Quad .5 mL 00:00:00 [facility] 6[facility] MO [facility] Influenza Virus 2019-02-06 Completed [facility] of Vaccine Quad .5 mL 00:00:00 [facility] 6+ MO [facility] Influenza Virus 2019-02-06 Completed [facility] of Vaccine Quad .5 mL 00:00:00 [facility] 6+ MO [facility] Influenza Virus 2019-02-06 Completed [facility] of Vaccine Quad .5 mL 00:00:00 [facility] 6+ MO [facility] Influenza Virus 2019-02-06 Completed [facility] of Vaccine Quad .5 mL 00:00:00 [facility] 6+ MO [facility] Influenza Virus [...] y of Vaccine Quad .5 mL 00:00:00 [facility] 6+ MO [facility] Influenza Virus 2019-02-06 Completed [facility] of Vaccine Quad .5 mL 00:00:00 [facility] 6[facility] MO [facility] Influenza Virus 2019-02-06 Completed [facility] of Vaccine Quad .5 mL 00:00:00 [facility] 6+ MO [facility] Influenza Virus 2019-02-06 Completed [facility] of Vaccine Quad .5 mL 00:00:00 [facility] 6+ MO [facility] Influenza Virus 2019-02-06 Completed [facility] of Vaccine Quad .5 mL 00:00:00 [facility] 6+ MO [facility] Influenza Virus [...] y of Vaccine Quad .5 mL 00:00:00 [facility] 6+ MO [facility] Influenza Virus [...] y of Vaccine Quad .5 mL 00:00:00 [facility] 6+ MO [facility] Influenza Virus [...] y of Vaccine Quad .5 mL 00:00:00 [facility] 6+ MO [facility] Influenza Virus 2019-02-06 Completed [facility] of Vaccine Quad .5 mL 00:00:00 [facility] 6+ MO [facility] Influenza Virus 2019-02-06 Completed [facility] of Vaccine Quad .5 mL 00:00:00 [facility] 6+ MO [facility] Influenza Virus 2019-02-06 Completed [facility] of Vaccine Quad .5 mL 00:00:00 [facility] 6+ MO [facility] Influenza Virus 2019-02-06 Completed [facility] of Vaccine Quad .5 mL 00:00:00 [facility] 6+ MO [facility] Influenza Virus 2019-02-06 Completed [facility] of Vaccine Quad .5 mL 00:00:00 [facility] 6+ MO [facility] Influenza Virus 2019-02-06 Completed [facility] of Vaccine Quad .5 mL 00:00:00 [facility] 6[facility] MO [facility] Influenza Virus 2019-02-06 Completed [facility] of Vaccine Quad .5 mL 00:00:00 [facility] 6+ MO [facility] Influenza Virus 2019-02-06 Completed [facility] of Vaccine Quad .5 mL 00:00:00 [facility] 6+ MO [facility] Influenza Virus 2019-02-06 Completed [facility] of Vaccine Quad .5 mL 00:00:00 [facility] 6[facility] MO [facility] Influenza Virus 2019-02-06 Completed [facility] of Vaccine Quad .5 mL 00:00:00 [facility] 6[facility] MO [facility] Influenza Virus 2019-02-06 Completed [facility] of Vaccine Quad .5 mL 00:00:00 [facility] 6[facility] MO [facility] Influenza Virus 2019-02-06 Completed [facility] of Vaccine Quad .5 mL 00:00:00 [facility] 6[facility] MO [facility] Influenza Virus 2019-02-06 Completed [facility] of Vaccine Quad .5 mL 00:00:00 [facility] 6+ MO [facility] Influenza Virus 2019-02-06 Completed [facility] of Vaccine Quad .5 mL 00:00:00 [facility] 6+ MO [facility] Influenza Virus 2019-02-06 Completed [facility] of Vaccine Quad .5 mL 00:00:00 [facility] 6+ MO [facility] Influenza Virus 2019-02-06 Completed [facility] of Vaccine Quad .5 mL 00:00:00 [facility] 6+ MO [facility] Influenza Virus 2019-02-06 Completed [facility] of Vaccine Quad .5 mL 00:00:00 [facility] 6+ MO [facility] Influenza Virus 2019-02-06 Completed [facility] of Vaccine Quad .5 mL 00:00:00 [facility] 6+ MO [facility] Influenza Virus 2019-02-06 Completed [facility] of Vaccine Quad .5 mL 00:00:00 [facility] 6+ MO [facility] Influenza Virus 2019-02-06 Completed [facility] of Vaccine Quad .5 mL 00:00:00 [facility] 6+ MO [facility] Influenza Virus 2019-02-06 Completed [facility] of Vaccine Quad .5 mL 00:00:00 [facility] 6+ MO [facility] Influenza Virus 2019-02-06 Completed [facility] y of Vaccine Quad .5 mL 00:00:00 [facility] 6+ MO Branch Influenza Virus 2019-02-06 Completed [facility] y of Vaccine Quad .5 mL 00:00:00 [facility] 6[facility] MO [facility] Influenza Virus 2019-02-06 Completed [facility] of Vaccine Quad .5 mL 00:00:00 [facility] 6[facility] MO [facility] Influenza Virus 2019-02-06 Completed [facility] of Vaccine Quad .5 mL 00:00:00 [facility] 6+ MO [facility] Influenza Virus 2019-02-06 Completed [facility] of Vaccine Quad .5 mL 00:00:00 [facility] 6[facility] MO [facility] Influenza Virus 2019-02-06 Completed [facility] of Vaccine Quad .5 mL 00:00:00 [facility] 6[facility] MO [facility] Influenza Virus 2019-02-06 Completed [facility] of Vaccine Quad .5 mL 00:00:00 [facility] 6+ MO [facility] Influenza Virus [...] [facility] of Vaccine Quad .5 mL [facility] 6+ MO [facility] (FLUZONE/FLULAVAL/F LUARIX) TDAP (ADACEL) Unknown Completed [facility] of VACCINE [facility] Influenza Virus Unknown Completed [facility] y of Vaccine Recomb Quad [facility], Preserv and ABX Branc h Free 18-64 YRS Influenza Virus Unknown Completed [facility] y of Vaccine [facility] Influenza Virus Unknown Completed [facility] Vaccine [facility] [place] Influenza Virus Unknown Completed [facility] y of Vaccine Quad , [facility] dical Preserv and ABX Branch Free 6 MO-64 YRS (FLUCELVAX) Influenza Virus Unknown Completed [facility] of Vaccine Quad .5 mL [facility] 6+ MO Branch (FLUZONE/FLULAVAL/F LUARIX) Influenza Virus Unknown Completed [facility] of Vaccine Quad .5 mL [facility] 6+ MO Branch (FLUZONE/FLULAVAL/F LUARIX) Influenza Virus Unknown Completed [facility] of Vaccine Quad .5 mL [facility] 6+ MO Branch (FLUZONE/FLULAVAL/F LUARIX) TDAP (ADACEL) Unknown Completed [facility] of VACCINE [facility] Influenza Virus Unknown Completed [facility] y of Vaccine Recomb Quad [facility], Preserv and ABX Branc h Free 18-64 YRS Influenza Virus Unknown Completed [facility] of Vaccine [facility] [place] Influenza Virus Unknown Completed [facility] of Vaccine [facility] Influenza Virus Unknown Completed [facility] Vaccine Quad , [place] [facility] Preserv and ABX Branch Free 6 MO-64 YRS (FLUCELVAX) Influenza Virus Unknown Completed [facility] of Vaccine Quad .5 mL [facility] 6+ MO Branch (FLUZONE/FLULAVAL/F LUARIX) Influenza Virus Unknown Completed [facility] of Vaccine Quad .5 mL [facility] 6+ MO Branch (FLUZONE/FLULAVAL/F LUARIX) Influenza Virus Unknown Completed [facility] of Vaccine Quad .5 mL [facility] IM 6+ MO Branch (FLUZONE/FLULAVAL/F LUARIX) TDAP (ADACEL) Unknown Completed [facility] VACCINE [facility] Influenza Virus Unknown Completed [facility] Vaccine Recomb Quad [facility], Preserv and ABX Branc h Free 18-64 YRS Influenza Virus Unknown Completed [facility] Vaccine [facility] Influenza Virus Unknown Completed [facility] Vaccine [facility] Influenza Virus Unknown Completed [facility] Vaccine Quad .5 mL [facility] 6+ MO Branch (FLUZONE/FLULAVAL/F LUARIX) Influenza Virus Unknown Completed [facility] Vaccine Quad .5 mL [facility] 6+ MO Branch (FLUZONE/FLULAVAL/F LUARIX) TDAP (ADACEL) Unknown Completed [facility] VACCINE [facility] Influenza Virus Unknown Completed [facility] Vaccine Recomb Quad [facility], Preserv and ABX Branc h Free 18-64 YRS Influenza Virus Unknown Completed [facility] Vaccine [facility] Influenza Virus Unknown Completed [facility] Vaccine [facility] Influenza Virus Unknown Completed [facility] Vaccine Quad .5 mL [facility] 6+ MO Branch (FLUZONE/FLULAVAL/F LUARIX) Influenza Virus Unknown Completed [facility] Vaccine Quad .5 mL [facility] IM 6+ MO Branch (FLUZONE/FLULAVAL/F LUARIX) TDAP (ADACEL) Unknown Completed [facility] VACCINE [facility] Influenza Virus Unknown Completed [facility] Vaccine Recomb Quad [facility], Preserv and ABX Branc h Free 18-64 YRS Influenza Virus Unknown Completed [facility] Vaccine [facility] Influenza Virus Unknown Completed [facility] Vaccine [facility] Influenza Virus Unknown Completed [facility] Vaccine Quad .5 mL [facility] IM 6+ MO Branch (FLUZONE/FLULAVAL/F LUARIX) Influenza Virus Unknown Completed [facility] Vaccine Quad .5 mL [facility] IM 6+ MO Branch (FLUZONE/FLULAVAL/F LUARIX) TDAP (ADACEL) Unknown Completed University VACCINE [facility] Influenza Virus Unknown Completed [facility] Vaccine Recomb Quad [facility], Preserv and ABX Branc h Free 18-64 YRS Influenza Virus Unknown Completed [facility] Vaccine [facility] Influenza Virus Unknown Completed [facility] Vaccine [facility] Influenza Virus Unknown Completed [facility] Vaccine Quad .5 mL [facility] IM 6+ MO Branch (FLUZONE/FLULAVAL/F LUARIX) Influenza Virus Unknown Completed [facility] Vaccine Quad .5 mL [facility] IM 6+ MO Branch (FLUZONE/FLULAVAL/F LUARIX) TDAP (ADACEL) Unknown Completed [facility] VACCINE [facility] Influenza Virus Unknown Completed [facility] Vaccine Recomb Quad [facility] , Preserv and ABX Branc h Free 18-64 YRS Influenza Virus Unknown Completed [facility] Vaccine [facility] Influenza Virus Unknown Completed [facility] Vaccine [facility] Influenza Virus Unknown Completed [facility] Vaccine Quad .5 mL [facility] IM 6+ MO Branch (FLUZONE/FLULAVAL/F LUARIX) Influenza Virus Unknown Completed [facility] Vaccine Quad .5 mL [facility] IM 6+ MO Branch (FLUZONE/FLULAVAL/F LUARIX) TDAP (ADACEL) Unknown Completed [facility] VACCINE [facility] Influenza Virus Unknown Completed [facility] Vaccine Recomb Quad [facility], Preserv and ABX Branc h Free 18-64 YRS Influenza Virus Unknown Completed [facility] Vaccine [facility] Influenza Virus Unknown Completed [facility]ine [facility] Influenza Virus Unknown Completed [facility] Vaccine Quad .5 mL [facility] IM 6+ MO Branch (FLUZONE/FLULAVAL/F LUARIX) Influenza Virus Unknown Completed [facility] Vaccine Quad .5 mL [facility] IM 6+ MO Branch (FLUZONE/FLULAVAL/F LUARIX) TDAP (ADACEL) Unknown Completed [facility] VACCINE [facility] Influenza Virus Unknown Completed [facility] Vaccine Recomb Quad [facility], Preserv and ABX Branc h Free 18-64 YRS Influenza Virus Unknown Completed [facility] Vaccine [facility] Influenza Virus Unknown Completed [facility] Vaccine [facility] Influenza Virus Unknown Completed [facility] Vaccine Quad .5 mL [facility] IM 6+ MO Branch (FLUZONE/FLULAVAL/F LUARIX) Influenza Virus Unknown Completed [facility] Vaccine Quad .5 mL [facility] IM 6+ MO Branch (FLUZONE/FLULAVAL/F LUARIX) TDAP (ADACEL) Unknown Completed [facility]ACCINE [facility] Influenza Virus Unknown Completed [facility] Vaccine Recomb Quad [facility] IM, Preserv and ABX Branc h Free 18-64 YRS Influenza Virus Unknown Completed [facility]ine [facility] Influenza Virus Unknown Completed [facility] Vaccine [facility] Influenza Virus Unknown Completed [facility] Vaccine Quad .5 mL [facility] IM 6+ MO Branch (FLUZONE/FLULAVAL/F LUARIX) Influenza Virus Unknown Completed [facility] Vaccine Quad .5 mL [facility] IM 6+ MO Branch (FLUZONE/FLULAVAL/F LUARIX) TDAP (ADACEL) Unknown Completed [facility] VACCINE [facility] Influenza Virus Unknown Completed [facility] Vaccine Recomb Quad [facility], Preserv and ABX Branc h Free 18-64 YRS Influenza Virus Unknown Completed [facility] Vaccine [facility] Influenza Virus Unknown Completed [facility]ine [facility] Influenza Virus Unknown Completed [facility] Vaccine Quad .5 mL [facility] IM 6+ MO Branch (FLUZONE/FLULAVAL/F LUARIX) Influenza Virus Unknown Completed [facility] Vaccine Quad .5 mL [facility] IM 6+ MO Branch (FLUZONE/FLULAVAL/F LUARIX) TDAP (ADACEL) Unknown Completed [facility]ACCINE [facility] Influenza Virus Unknown Completed [facility] Vaccine Recomb Quad [facility], Preserv and ABX Branc h Free 18-64 YRS Influenza Virus Unknown Completed [facility] Vaccine [facility] Influenza Virus Unknown Completed [facility]ine [facility] Influenza Virus Unknown Completed [facility] Vaccine Quad .5 mL [facility] IM 6+ MO Branch (FLUZONE/FLULAVAL/F LUARIX) Influenza Virus Unknown Completed [facility] Vaccine Quad .5 mL [facility] IM 6+ MO Branch (FLUZONE/FLULAVAL/F LUARIX) TDAP (ADACEL) Unknown Completed [facility]ACCINE [facility] Influenza Virus Unknown Completed [facility] Vaccine Recomb Quad [facility] IM, Preserv and ABX Branc h Free 18-64 YRS Influenza Virus Unknown Completed [facility] Vaccine [facility] Influenza Virus Unknown Completed [facility] Vaccine [facility] Influenza Virus Unknown Completed [facility] Vaccine Quad .5 mL [facility] IM 6+ MO Branch (FLUZONE/FLULAVAL/F LUARIX) Influenza Virus Unknown Completed [facility] Vaccine Quad .5 mL [facility] IM 6+ MO Branch (FLUZONE/FLULAVAL/F LUARIX) TDAP (ADACEL) Unknown Completed [facility] VACCINE [facility] Influenza Virus Unknown Completed [facility] Vaccine Recomb Quad [facility] IM, Preserv and ABX Branc h Free 18-64 YRS Influenza Virus Unknown Completed [facility] Vaccine [facility] Influenza Virus Unknown Completed [facility] Vaccine [facility] Influenza Virus Unknown Completed [facility] Vaccine Quad .5 mL [facility] 6+ MO Branch (FLUZONE/FLULAVAL/F LUARIX) Influenza Virus Unknown Completed [facility] Vaccine Quad .5 mL [facility] 6+ MO Branch (FLUZONE/FLULAVAL/F LUARIX) TDAP (ADACEL) Unknown Completed [facility] VACCINE [facility] Influenza Virus Unknown Completed [facility] Vaccine Recomb Quad [facility] , Preserv and ABX Branc h Free 18-64 YRS Influenza Virus Unknown Completed [facility] Vaccine [facility] [place] Influenza Virus Unknown Completed [facility] Vaccine [facility] Influenza Virus Unknown Completed [facility] Vaccine Quad .5 mL [facility] 6+ MO Branch (FLUZONE/FLULAVAL/F LUARIX) Influenza Virus Unknown Completed [facility] Vaccine Quad .5 mL [facility] 6+ MO Branch (FLUZONE/FLULAVAL/F LUARIX) TDAP (ADACEL) Unknown Completed [facility] VACCINE [facility] Influenza Virus Unknown Completed [facility] Vaccine Recomb Quad [facility] , Preserv and ABX Branc h Free 18-64 YRS Influenza Virus Unknown Completed [facility] Vaccine [facility] Influenza Virus Unknown Completed [facility] Vaccine [facility] Influenza Virus Unknown Completed [facility] Vaccine Quad .5 mL [facility] IM 6+ MO Branch (FLUZONE/FLULAVAL/F LUARIX) Influenza Virus Unknown Completed [facility] Vaccine Quad .5 mL [facility] IM 6+ MO Branch (FLUZONE/FLULAVAL/F LUARIX) TDAP (ADACEL) Unknown Completed [facility] VACCINE [facility] [place] Influenza Virus Unknown Completed [facility] Vaccine Recomb Quad [facility] IM, Preserv and ABX Branc h Free 18-64 YRS Influenza Virus Unknown Completed [facility] Vaccine [facility] Influenza Virus Unknown Completed [facility]ine [facility] Influenza Virus Unknown Completed [facility] Vaccine Quad .5 mL [facility] IM 6+ MO Branch (FLUZONE/FLULAVAL/F LUARIX) Influenza Virus Unknown Completed [facility] Vaccine Quad .5 mL [facility] IM 6+ MO Branch (FLUZONE/FLULAVAL/F LUARIX) TDAP (ADACEL) Unknown Completed [facility] Influenza Virus Unknown Completed [facility] Vaccine Recomb Quad [facility] IM, Preserv and ABX Branc h Free 18-64 YRS Influenza Virus Unknown Completed [facility] Vaccine [facility] Influenza Virus Unknown Completed [facility] Vaccine [facility] [place] Influenza Virus Unknown Completed [facility] Vaccine Quad .5 mL [facility] IM 6+ MO Branch (FLUZONE/FLULAVAL/F LUARIX) Influenza Virus Unknown Completed [facility] Vaccine Quad .5 mL [facility] IM 6+ MO Branch (FLUZONE/FLULAVAL/F LUARIX) TDAP (ADACEL) Unknown Completed [facility] Influenza Virus Unknown Completed [facility] Vaccine Recomb Quad [facility] IM, Preserv and ABX Branc h Free 18-64 YRS Influenza Virus Unknown Completed [facility] Vaccine [facility] Influenza Virus Unknown Completed [facility] Vaccine Quad .5 mL [facility] IM 6+ MO Branch (FLUZONE/FLULAVAL/F LUARIX) TDAP (ADACEL) Unknown Completed [facility] VACCINE [facility] Influenza Virus Unknown Completed [facility] Vaccine Recomb Quad [facility] IM, Preserv and ABX Branc h Free 18-64 YRS Influenza Virus Unknown Completed [facility] Vaccine [facility] Influenza Virus Unknown Completed [facility] Vaccine Quad .5 mL [facility] IM 6+ MO Branch (FLUZONE/FLULAVAL/F LUARIX) TDAP (ADACEL) Unknown Completed [facility] Influenza Virus Unknown Completed [facility] Vaccine Recomb Quad [facility], Preserv and ABX Branc h Free 18-64 YRS Influenza Virus Unknown Completed [facility] Vaccine [facility] Influenza Virus Unknown Completed [facility] Vaccine Quad .5 mL [facility] IM 6+ MO Branch (FLUZONE/FLULAVAL/F LUARIX) TDAP (ADACEL) Unknown Completed [facility] Influenza Virus Unknown Completed [facility] Vaccine Recomb Quad [facility], Preserv and ABX Branc h Free 18-64 YRS Influenza Virus Unknown Completed [facility] Vaccine [facility] Influenza Virus Unknown Completed [facility] Vaccine Quad .5 mL [facility] IM 6+ MO Branch (FLUZONE/FLULAVAL/F LUARIX) TDAP (ADACEL) Unknown Completed [facility] Influenza Virus Unknown Completed [facility] Vaccine Recomb Quad [facility], Preserv and ABX Branc h Free 18-64 YRS Influenza Virus Unknown Completed [facility] Vaccine [facility] Influenza Virus Unknown Completed [facility] Vaccine Quad .5 mL [facility] IM 6+ MO Branch (FLUZONE/FLULAVAL/F LUARIX) TDAP (ADACEL) Unknown Completed [facility] Influenza Virus Unknown Completed [facility] Vaccine Recomb Quad [facility] IM, Preserv and ABX Branc h Free 18-64 YRS Influenza Virus Unknown Completed [facility] Vaccine [facility] Influenza Virus Unknown Completed [facility] Vaccine Quad .5 mL [facility] IM 6+ MO Branch (FLUZONE/FLULAVAL/F LUARIX) TDAP (ADACEL) Unknown Completed [facility] Influenza Virus Unknown Completed [facility] Vaccine Recomb Quad [facility], Preserv and ABX Branc h Free 18-64 YRS Influenza Virus Unknown Completed [facility] Vaccine [facility] Influenza Virus Unknown Completed [facility] Vaccine Quad .5 mL [facility] IM 6+ MO Branch (FLUZONE/FLULAVAL/F LUARIX) TDAP (ADACEL) Unknown Completed [facility] Influenza Virus Unknown Completed [facility] Vaccine Recomb Quad [facility] IM, Preserv and ABX Branc h Free 18-64 YRS Influenza Virus Unknown Completed [facility] Vaccine [facility] Influenza Virus Unknown Completed [facility] Vaccine Quad .5 mL [facility] IM 6+ MO Branch (FLUZONE/FLULAVAL/F LUARIX) TDAP (ADACEL) Unknown Completed [facility] Influenza Virus Unknown Completed [facility] Vaccine Recomb Quad [facility] IM, Preserv and ABX Branc h Free 18-64 YRS Influenza Virus Unknown Completed [facility] Vaccine [facility] [place] Influenza Virus Unknown Completed [facility] Vaccine Quad .5 mL [facility] IM 6+ MO Branch (FLUZONE/FLULAVAL/F LUARIX) TDAP (ADACEL) Unknown Completed [facility] Influenza Virus Unknown Completed [facility] Vaccine Recomb Quad [facility] IM, Preserv and ABX Branc h Free 18-64 YRS Influenza Virus Unknown Completed [facility] Vaccine [facility] [place] Influenza Virus Unknown Completed [facility] Vaccine Quad .5 mL [facility] IM 6+ MO Branch (FLUZONE/FLULAVAL/F LUARIX) TDAP (ADACEL) Unknown Completed [facility] Influenza Virus Unknown Completed [facility] Vaccine Recomb Quad [facility] IM, Preserv and ABX Branc h Free 18-64 YRS Influenza Virus Unknown Completed [facility] Vaccine [facility] Influenza Virus Unknown Completed [facility] Vaccine Quad .5 mL [facility] IM 6+ MO Branch (FLUZONE/FLULAVAL/F LUARIX) TDAP (ADACEL) Unknown Completed [facility] Influenza Virus Unknown Completed [facility] Vaccine Recomb Quad [facility] IM, Preserv and ABX Branc h Free 18-64 YRS Influenza Virus Unknown Completed [facility] Vaccine [facility] Influenza Virus Unknown Completed [facility] Vaccine Quad .5 mL [facility] IM 6+ MO Branch (FLUZONE/FLULAVAL/F LUARIX) TDAP (ADACEL) Unknown Completed [facility] Influenza Virus Unknown Completed [facility] Vaccine Recomb Quad [facility] IM, Preserv and ABX Branc h Free 18-64 YRS Influenza Virus Unknown Completed [facility] Vaccine [facility] Influenza Virus Unknown Completed [facility] Vaccine Quad .5 mL [facility] IM 6+ MO Branch (FLUZONE/FLULAVAL/F LUARIX) TDAP (ADACEL) Unknown Completed [facility] Influenza Virus Unknown Completed [facility] Vaccine Recomb Quad [facility] IM, Preserv and ABX Branc h Free 18-64 YRS Influenza Virus Unknown Completed [facility] Vaccine [facility] Influenza Virus Unknown Completed [facility] Vaccine Quad .5 mL [facility] IM 6+ MO Branch (FLUZONE/FLULAVAL/F LUARIX) TDAP (ADACEL) Unknown Completed [facility] VACCINE [facility] Influenza Virus Unknown Completed [facility] Vaccine Recomb Quad [facility] IM, Preserv and ABX Branc h Free 18-64 YRS Influenza Virus Unknown Completed [facility] Vaccine [facility] Influenza Virus Unknown Completed [facility] Vaccine Quad .5 mL [facility] IM 6+ MO Branch (FLUZONE/FLULAVAL/F LUARIX) TDAP (ADACEL) Unknown Completed [facility] Influenza Virus Unknown Completed [facility] Vaccine Recomb Quad [facility] IM, Preserv and ABX Branc h Free 18-64 YRS Influenza Virus Unknown Completed [facility] Vaccine [facility] Influenza Virus Unknown Completed [facility] Vaccine Quad .5 mL [facility] IM 6+ MO Branch (FLUZONE/FLULAVAL/F LUARIX) TDAP (ADACEL) Unknown Completed [facility] Influenza Virus Unknown Completed [facility] Vaccine Recomb Quad [facility] IM, Preserv and ABX Branc h Free 18-64 YRS Influenza Virus Unknown Completed [facility] Vaccine [facility] Influenza Virus Unknown Completed [facility] Vaccine Quad .5 mL [facility] IM 6+ MO Branch (FLUZONE/FLULAVAL/F LUARIX) TDAP (ADACEL) Unknown Completed [facility] Influenza Virus Unknown Completed [facility] Vaccine Recomb Quad [facility] IM, Preserv and ABX Branc h Free 18-64 YRS Influenza Virus Unknown Completed [facility] Vaccine [facility] Influenza Virus Unknown Completed [facility] Vaccine Quad .5 mL [facility] IM 6+ MO Branch (FLUZONE/FLULAVAL/F LUARIX) TDAP (ADACEL) Unknown Completed [facility] Influenza Virus Unknown Completed [facility] Vaccine Recomb Quad [facility] IM, Preserv and ABX Branc h Free 18-64 YRS Influenza Virus Unknown Completed [facility] Vaccine [facility] Influenza Virus Unknown Completed [facility] Vaccine Quad .5 mL [facility] IM 6+ MO Branch (FLUZONE/FLULAVAL/F LUARIX) TDAP (ADACEL) Unknown Completed [facility] Influenza Virus Unknown Completed [facility] Vaccine Recomb Quad [facility] IM, Preserv and ABX Branc h Free 18-64 YRS Influenza Virus Unknown Completed [facility] Vaccine [facility] Influenza Virus Unknown Completed [facility] Vaccine Quad .5 mL [facility] IM 6+ MO Branch (FLUZONE/FLULAVAL/F LUARIX) TDAP (ADACEL) Unknown Completed [facility] Influenza Virus Unknown Completed [facility] Vaccine Recomb Quad [facility] IM, Preserv and ABX Branc h Free 18-64 YRS Influenza Virus Unknown Completed [facility] Vaccine [facility] Influenza Virus Unknown Completed [facility] Vaccine Quad .5 mL [facility] IM 6+ MO Branch (FLUZONE/FLULAVAL/F LUARIX) TDAP (ADACEL) Unknown Completed [facility] Influenza Virus Unknown Completed [facility] Vaccine Recomb Quad [facility] IM, Preserv and ABX Branc h Free 18-64 YRS Influenza Virus Unknown Completed [facility] Vaccine [facility] Influenza Virus Unknown Completed [facility] Vaccine Quad .5 mL [facility] IM 6+ MO Branch (FLUZONE/FLULAVAL/F LUARIX) TDAP (ADACEL) Unknown Completed [facility] Influenza Virus Unknown Completed [facility] Vaccine Recomb Quad [facility], Preserv and ABX Branc h Free 18-64 YRS Influenza Virus Unknown Completed [facility] Vaccine [facility] Influenza Virus Unknown Completed [facility] Vaccine Quad .5 mL [facility] IM 6+ MO Branch (FLUZONE/FLULAVAL/F LUARIX) TDAP (ADACEL) Unknown Completed [facility] Influenza Virus Unknown Completed [facility] Vaccine Recomb Quad [facility], Preserv and ABX Branc h Free 18-64 YRS Influenza Virus Unknown Completed [facility] Vaccine [facility] Influenza Virus Unknown Completed [facility] Vaccine Quad .5 mL [facility] IM 6+ MO Branch (FLUZONE/FLULAVAL/F LUARIX) TDAP (ADACEL) Unknown Completed [facility] Influenza Virus Unknown Completed [facility] Vaccine Recomb Quad [facility] IM, Preserv and ABX Branc h Free 18-64 YRS Influenza Virus Unknown Completed [facility] Vaccine [facility] Influenza Virus Unknown Completed [facility] Vaccine Quad .5 mL [facility] IM 6+ MO Branch (FLUZONE/FLULAVAL/F LUARIX) TDAP (ADACEL) Unknown Completed [facility] Influenza Virus Unknown Completed [facility] Vaccine Recomb Quad [facility] IM, Preserv and ABX Branc h Free 18-64 YRS Influenza Virus Unknown Completed [facility] Vaccine [facility] Influenza Virus Unknown Completed [facility] Vaccine Quad .5 mL [facility] IM 6+ MO Branch (FLUZONE/FLULAVAL/F LUARIX) TDAP (ADACEL) Unknown Completed [facility] Influenza Virus Unknown Completed [facility] Vaccine Recomb Quad [facility] IM, Preserv and ABX Branc h Free 18-64 YRS Influenza Virus Unknown Completed [facility] Vaccine [facility] Influenza Virus Unknown Completed [facility] Vaccine Quad .5 mL [facility] IM 6+ MO Branch (FLUZONE/FLULAVAL/F LUARIX) TDAP (ADACEL) Unknown Completed [facility] Influenza Virus Unknown Completed [facility] Vaccine Recomb Quad [facility] IM, Preserv and ABX Branc h Free 18-64 YRS Influenza Virus Unknown Completed [facility] Vaccine [facility] Influenza Virus Unknown Completed [facility] Vaccine Quad .5 mL [facility] IM 6+ MO Branch (FLUZONE/FLULAVAL/F LUARIX) TDAP (ADACEL) Unknown Completed [facility] Influenza Virus Unknown Completed [facility] Vaccine Recomb Quad [facility] IM, Preserv and ABX Branc h Free 18-64 YRS Influenza Virus Unknown Completed [facility] Vaccine [facility] Influenza Virus Unknown Completed [facility] Vaccine Quad .5 mL [facility] IM 6+ MO Branch (FLUZONE/FLULAVAL/F LUARIX) TDAP (ADACEL) Unknown Completed [facility] Influenza Virus Unknown Completed [facility] Vaccine Recomb Quad [facility] IM, Preserv and ABX Branc h Free 18-64 YRS Influenza Virus Unknown Completed [facility] Vaccine [facility] [place] Influenza Virus Unknown Completed [facility] Vaccine Quad .5 mL [facility] IM 6+ MO Branch (FLUZONE/FLULAVAL/F LUARIX) TDAP (ADACEL) Unknown Completed [facility] Influenza Virus Unknown Completed [facility] Vaccine Recomb Quad [facility] IM, Preserv and ABX Branc h Free 18-64 YRS Influenza Virus Unknown Completed [facility] Vaccine [facility] Influenza Virus Unknown Completed [facility] Vaccine Quad .5 mL [facility] IM 6+ MO Branch (FLUZONE/FLULAVAL/F LUARIX) TDAP (ADACEL) Unknown Completed [facility] Influenza Virus Unknown Completed [facility] Vaccine Recomb Quad [facility] IM, Preserv and ABX Branc h Free 18-64 YRS Influenza Virus Unknown Completed [facility] Vaccine [facility] Influenza Virus Unknown Completed [facility] Vaccine Quad .5 mL [facility] IM 6+ MO [facility] (FLUZONE/FLULAVAL/F LUARIX) TDAP (ADACEL) Unknown Completed [facility] Influenza Virus Unknown Completed [facility] Vaccine Recomb Quad [facility], Preserv and ABX Branc h Free 18-64 YRS Influenza Virus Unknown Completed [facility] Vacc[facility] Influenza Virus Unknown Completed [facility] Vaccine Quad .5 mL [facility] IM 6+ [facility] (FLUZONE/FLULAVAL/F LUARIX) TDAP (ADACEL) Unknown Completed [facility] Influenza Virus Unknown Completed [facility]it [facility] of Vaccine Recomb Quad [facility], Preserv and ABX Branc h Free 18-64 YRS Influenza Virus Unknown Completed [facility] of Vaccine [facility] Influenza Virus Unknown Completed [facility] Vaccine Quad .5 mL [facility] IM 6+ [facility] (FLUZONE/FLULAVAL/F LUARIX) TDAP (ADACEL) Unknown Completed [facility] Influenza Virus Unknown Completed [facility] of Vaccine Recomb Quad [facility], Preserv and ABX Branc h Free 18-64 YRS Influenza Virus Unknown Completed [facility] Vaccine [facility] Influenza Virus Unknown Completed [facility] Vaccine Quad .5 mL [facility] IM 6+ [facility] Branch (FLUZONE/FLULAVAL/F LUARIX) TDAP (ADACEL) Unknown Completed [facility] Influenza Virus Unknown Completed [facility] Vaccine Recomb Quad [facility], Preserv and ABX Branc h Free 18-64 YRS Influenza Virus Unknown Completed [facility] Vaccine [facility] Influenza Virus Unknown Completed [facility] Vaccine Quad .5 mL [facility] 6+ [facility] (FLUZONE/FLULAVAL/F LUARIX) TDAP (ADACEL) Unknown Completed [facility] Influenza Virus Unknown Completed [facility] Vaccine Quad .5 mL [facility] IM 6+ [facility] (FLUZONE/FLULAVAL/F LUARIX) TDAP (ADACEL) Unknown Completed [facility] Influenza Virus Unknown Completed [facility] of Vaccine Quad .5 mL [facility] IM 6+ MO Branch (FLUZONE/FLULAVAL/F LUARIX) TDAP (ADACEL) Unknown Completed [facility] Influenza Virus Unknown Completed [facility] Vaccine Quad .5 mL [facility] IM 6+ [facility] (FLUZONE/FLULAVAL/F LUARIX) TDAP (ADACEL) Unknown Completed [facility] Influenza Virus Unknown Completed [facility] Vaccine Quad .5 mL [facility] IM 6+ [facility] Branch (FLUZONE/FLULAVAL/F LUARIX) TDAP (ADACEL) Unknown Completed [facility] Influenza Virus Unknown Completed [facility]it [facility] of Vaccine Quad .5 mL [facility] IM 6+ MO Branch (FLUZONE/FLULAVAL/F LUARIX) TDAP (ADACEL) Unknown Completed [facility] Influenza Virus Unknown Completed [facility] of Vaccine Quad .5 mL [facility] IM 6+ MO Branch (FLUZONE/FLULAVAL/F LUARIX) TDAP (ADACEL) Unknown Completed [facility] Influenza Virus Unknown Completed [facility] of Vaccine Quad .5 mL [facility] IM 6+ MO Branch (FLUZONE/FLULAVAL/F LUARIX) TDAP (ADACEL) Unknown Completed [facility] Influenza Virus Unknown Completed [facility] of Vaccine Quad .5 mL [facility] IM 6+ MO Branch (FLUZONE/FLULAVAL/F LUARIX) TDAP (ADACEL) Unknown Completed [facility] Vital Signs Vital Name Observation Time Observation Value Comments Source Systolic blood 2023-01-15 16:56:00 132 [facility] Diastolic blood 2023-01-15 16:56:00 91 mm[facility]Hg] [facility] Heart rate 2023-01-15 16:56:00 67 /min [facility] Body temperature 2023-01-15 16:56:00 36.78 Irene [facility] rate 2023-01-15 16:56:00 20 /min [facility] Oxygen saturation in 2023-01-15 16:56:00 100 /min [facility] Arterial blood by [facility] Pulse oximetry Branch Body height 2023-01-12 09:05:00 154.9 cm [facility] Body weight 2023-01-12 09:05:00 58.968 kg [facility] BMI 2023-01-12 09:05:00 24.56 kg/m2 [facility] Systolic blood 2022-11-21 21:40:00 122 mm[Hg] Univer sity of pressure [facility] Diastolic blood 2022-11-21 21:40:00 90 mm[Hg] Unive rsity of pressure [facility] Heart rate 2022-11-21 21:40:00 92 /min [facility] Respiratory rate 2022-11-21 21:40:00 16 /min Univ ersity of [facility] Oxygen saturation in 2022-11-21 21:40:00 99 /min [facility] Pulse oxim[facility] Body temperature 2022-11-21 18:07:00 37.28 Irene [facility] ers[facility] Body weight 2022-11-21 18:07:00 68.04 kg [facility] BMI 2022-11-21 18:07:00 28.34 kg/m2 [facility] Systolic blood 2022-09-05 17:22:00 139 mm[Hg] Univer sity of pressure [facility] Diastolic blood 2022-09-05 17:22:00 91 mm[Hg] Unive rsity of pressure [facility] Heart rate 2022-09-05 17:22:00 120 /min [facility] Respiratory rate 2022-09-05 17:22:00 18 /min Univ ersity [facility] Oxygen saturation in 2022-09-05 17:22:00 99 /min [facility] by [facility] Pulse oximetry [facility] Body temperature 2022-09-05 13:43:00 37.11 Irene [facility] Body weight 2022-09-05 13:43:00 68.04 kg [facility] BMI 2022-09-05 13:43:00 28.34 kg/m2 [facility] Systolic blood 2022-08-01 00:49:00 138 mm[Hg] Univer sity of pressure [facility] Diastolic blood 2022-08-01 00:49:00 104 mm[Hg] Unive rsity of pressure [facility] Heart rate 2022-08-01 00:49:00 108 /min [facility] Respiratory rate 2022-08-01 00:49:00 18 /min Univ ersity [facility] Oxygen saturation in 2022-08-01 00:49:00 99 /min [facility] blood by [facility] Pulse oxim[facility] Body temperature 2022-07-31 22:52:00 37.11 Irene [facility] Body height 2022-07-31 22:52:00 154.9 cm [facility] Body weight 2022-07-31 22:52:00 68.04 kg [facility] BMI 2022-07-31 22:52:00 28.34 kg/m2 [facility] Systolic blood 2022-07-15 15:32:00 130 mm[Hg] Univer sity of pressure [facility] Diastolic blood 2022-07-15 15:32:00 90 mm[Hg] Unive rsity of pressure [facility] Heart rate 2022-07-15 15:31:00 81 /min [facility] Body temperature 2022-07-15 15:31:00 36.94 Irene [facility] ers[facility] Respiratory rate 2022-07-15 15:31:00 16 /min Univ ersity [facility] Body weight 2022-07-15 15:31:00 68.493 kg [facility] BMI 2022-07-15 15:31:00 28.53 kg/m2 [facility] Oxygen saturation in 2022-07-15 15:31:00 99 /min [facility] Arterial blood by [facility]essi Pulse oximetry Branch Systolic blood 2022-06-23 15:26:00 111 mm[Hg] Univer sity of pressure [facility] Diastolic blood 2022-06-23 15:26:00 75 mm[Hg] Unive rsity of pressure [facility] Heart rate 2022-06-23 15:26:00 108 /min [facility] Body temperature 2022-06-23 15:26:00 36.83 Irene [facility] Respiratory rate 2022-06-23 15:26:00 18 /min Univ ersity [facility] Body height 2022-06-23 15:26:00 154.9 cm [facility] Body weight 2022-06-23 15:26:00 71.385 kg [facility] BMI 2022-06-23 15:26:00 29.74 kg/m2 [facility] Oxygen saturation in 2022-06-23 15:26:00 99 /min [facility] Arterial blood by [facility] yessi Pulse oximetry Branch Systolic blood 2022-05-05 22:05:00 126 mm[Hg] Univer sity of pressure [facility] Diastolic blood 2022-05-05 22:05:00 75 mm[Hg] Unive rsity of pressure [facility] Heart rate 2022-05-05 22:05:00 99 /min [facility] Respiratory rate 2022-05-05 22:05:00 16 /min Univ ersity of [facility] Oxygen saturation in 2022-05-05 22:05:00 99 /min [facility] Arterial blood by [facility] Pulse oximetry Branch Body temperature 2022-05-05 18:24:00 37.11 Irene [facility] ers[facility] Body height 2022-05-05 18:24:00 154.9 cm [facility] Body weight 2022-05-05 18:24:00 54.432 kg [facility] BMI 2022-05-05 18:24:00 22.67 kg/m2 [facility] Systolic blood 2022-04-26 14:28:00 135 mm[Hg] Univer sity of pressure [facility] Diastolic blood 2022-04-26 14:28:00 95 mm[Hg] Unive rsity of pressure [facility] Heart rate 2022-04-26 14:28:00 93 /min [facility] Body temperature 2022-04-26 14:28:00 36.89 Irene [facility] Respiratory rate 2022-04-26 14:28:00 18 /min Univ ersity of [facility] Body height 2022-04-26 14:28:00 154.9 cm [facility] Body weight 2022-04-26 14:28:00 54.432 kg [facility] BMI 2022-04-26 14:28:00 22.67 kg/m2 [facility] Oxygen saturation in 2022-04-26 14:28:00 100 /min [facility] Arterial blood by [facility] Pulse oximetry Branch Systolic blood 2022-04-26 00:21:00 151 mm[Hg] Univer sity of pressure [facility] Diastolic blood 2022-04-26 00:21:00 98 mm[Hg] Unive rsity of pressure [facility] Heart rate 2022-04-26 00:21:00 98 /min [facility] Body temperature 2022-04-26 00:21:00 36.72 Irene [facility] ers[facility] Respiratory rate 2022-04-26 00:21:00 18 /min Univ ers[facility] Body height 2022-04-26 00:21:00 154.9 cm [facility] Body weight 2022-04-26 00:21:00 54.432 kg [facility] BMI 2022-04-26 00:21:00 22.67 kg/m2 [facility] Oxygen saturation in 2022-04-26 00:21:00 100 /min [facility] Arterial blood by [facility] Pulse oximetry Branch Systolic blood 2022-04-09 14:39:00 122 mm[Hg] Univer sity of pressure [facility] Diastolic blood 2022-04-09 14:39:00 84 mm[Hg] Unive rsity of pressure [facility] Heart rate 2022-04-09 14:39:00 96 /min [facility] Body height 2022-04-09 14:39:00 154.9 cm [facility] Body weight 2022-04-09 14:39:00 60.328 kg [facility] BMI 2022-04-09 14:39:00 25.13 kg/m2 [facility] Oxygen saturation in 2022-04-09 14:39:00 98 /min [facility] Arterial blood by [facility] yessi Pulse oximetry Branch Systolic blood 2022-04-07 22:43:36 131 mm[Hg] Univer sity of pressure [facility] Diastolic blood 2022-04-07 22:43:36 83 mm[Hg] Unive rsity of pressure [facility] Heart rate 2022-04-07 22:43:36 113 /min [facility] Respiratory rate 2022-04-07 22:43:36 18 /min Univ ersity [facility] Oxygen saturation in 2022-04-07 22:43:36 97 /min [facility] Arterial blood by [place] [employer] [facility] Pulse oximetry [facility] Body temperature 2022-04-07 19:41:00 37.17 Irene [facility] Body height 2022-04-07 19:41:00 154.9 cm [facility] Body weight 2022-04-07 19:41:00 60.328 kg [facility] BMI 2022-04-07 19:41:00 25.13 kg/m2 [facility] Systolic blood 2022-03-24 19:00:00 125 mm[Hg] Univer sity of pressure [facility] Diastolic blood 2022-03-24 19:00:00 86 mm[Hg] Unive rsity of pressure [facility] Heart rate 2022-03-24 19:00:00 93 /min [facility] Respiratory rate 2022-03-24 19:00:00 17 /min Univ ersity of [facility] Oxygen saturation in 2022-03-24 19:00:00 97 /min [facility] Arterial blood by [facility] yessi Pulse oximetry Branch Body temperature 2022-03-24 13:33:00 36.78 Irene [facility] ers[facility] Systolic blood 2022-03-15 19:23:00 128 mm[Hg] Univer sity of pressure [facility] Diastolic blood 2022-03-15 19:23:00 89 mm[Hg] Unive rsity of pressure [facility] Heart rate 2022-03-15 19:23:00 104 /min [facility] Body weight 2022-03-15 19:23:00 60.328 kg [facility] BMI 2022-03-15 19:23:00 25.13 kg/m2 [facility] Oxygen saturation in 2022-03-15 19:23:00 98 /min [facility] by [facility] Pulse oxim[facility] Systolic blood 2022-03-15 15:02:00 115 mm[Hg] Univer sity of pressure [facility] Diastolic blood 2022-03-15 15:02:00 70 mm[Hg] Unive rsity of pressure [facility] Heart rate 2022-03-15 15:02:00 85 /min [facility] Respiratory rate 2022-03-15 15:02:00 20 /min Univ ersity of [facility] Oxygen saturation in 2022-03-15 15:02:00 99 /min [facility] Arterial blood by [facility] yessi Pulse oximetry Branch Body temperature 2022-03-15 13:38:00 36.94 Irene [facility] Body height 2022-03-15 13:38:00 154.9 cm [facility] Body weight 2022-03-15 13:38:00 54.432 kg [facility] BMI 2022-03-15 13:38:00 22.67 kg/m2 [facility] Systolic blood 2022-03-11 16:30:00 124 mm[Hg] Univer sity of pressure [facility] Diastolic blood 2022-03-11 16:30:00 88 mm[Hg] Unive rsity of pressure [facility] Heart rate 2022-03-11 16:30:00 93 /min [facility] Body temperature 2022-03-11 16:30:00 36.67 Irene [facility] Respiratory rate 2022-03-11 16:30:00 14 /min Univ ers[facility] Oxygen saturation in 2022-03-11 16:30:00 100 /min [facility] Arterial blood by [place] [employer] [facility] Pulse oximetry [facility] Body height 2022-03-11 14:19:00 154.9 cm [facility] Body weight 2022-03-11 14:19:00 58.968 kg [facility] BMI 2022-03-11 14:19:00 24.56 kg/m2 [facility] Systolic blood 2022-02-27 14:14:00 140 mm[Hg] Univer sity of pressure [facility] Diastolic blood 2022-02-27 14:14:00 90 [...] 99 /min [facility] blood by [facility] Pulse oxim[facility] Systolic blood 2022-02-21 08:06:00 135 mm[Hg] Univer sity of pressure [facility] Diastolic blood 2022-02-21 08:06:00 97 mm[Hg] Unive rsity of pressure [facility] Heart rate 2022-02-21 08:06:00 98 /min [facility] Respiratory rate 2022-02-21 08:06:00 16 /min Univ ersity of [facility] Oxygen saturation in 2022-02-21 08:06:00 97 /min [facility] Arterial blood by [facility] Pulse oximetry [facility] Body temperature 2022-02-21 06:16:00 36.94 Irene [facility] Body height 2022-02-21 06:16:00 154.9 cm [facility] Body weight 2022-02-21 06:16:00 60.963 kg [facility] BMI 2022-02-21 06:16:00 25.39 kg/m2 [facility] Systolic blood 2022 20:08:00 136 mm[Hg] Univer sity of pressure [facility] Diastolic blood 2022 20:08:00 96 mm[Hg] Unive rsity of pressure [facility] Heart rate 2022 20:08:00 100 /min [facility] Respiratory rate 2022 20:08:00 20 /min Univ ersity [facility] Oxygen saturation in 2022 20:08:00 98 /min [facility] Arterial blood by [employer] Pulse oximetry Branch Body temperature 2022 16:56:00 37.06 Irene [facility] Body weight 2022 16:56:00 54.432 kg [facility] BMI 2022 16:56:00 22.67 kg/m2 [facility] Systolic blood 2022-02-05 14:31:00 128 mm[Hg] Univer sity of pressure [facility] Diastolic blood 2022-02-05 14:31:00 84 mm[Hg] Unive rsity of pressure [facility] Heart rate 2022-02-05 14:31:00 86 /min [facility] Body temperature 2022-02-05 14:31:00 37.89 Irene [facility] Respiratory rate 2022-02-05 14:31:00 18 /min Univ ersity [facility] Body height 2022-02-05 14:31:00 154.9 cm [facility] Body weight 2022-02-05 14:31:00 54.432 kg [facility] BMI 2022-02-05 14:31:00 22.67 kg/m2 [facility] Oxygen saturation in 2022-02-05 14:31:00 98 /min [facility] Arterial blood by [facility] Pulse oximetry Branch Systolic blood 2022-01-18 14:50:00 144 mm[Hg] Univer sity of pressure [facility] Diastolic blood 2022-01-18 14:50:00 92 mm[Hg] Unive rsity of pressure [facility] Heart rate 2022-01-18 14:50:00 94 /min [facility] Respiratory rate 2022-01-18 14:50:00 20 /min Univ ersity [facility] Oxygen saturation in 2022-01-18 14:50:00 99 /min [facility] Arterial blood by [facility] Pulse oximetry Branch Body weight 2022-01-18 10:18:00 54.432 kg [facility] BMI 2022-01-18 10:18:00 22.67 kg/m2 [facility] Body temperature 2022-01-18 10:15:00 36.72 Irene [facility] Systolic blood 2022-01-15 15:48:26 125 mm[Hg] Univer sity of pressure [facility] Diastolic blood 2022-01-15 15:48:26 85 mm[Hg] Unive rsity of pressure [facility] Heart rate 2022-01-15 15:48:26 95 /min [facility] Respiratory rate 2022-01-15 15:48:26 18 /min [facility] Oxygen saturation in 2022-01-15 15:48:26 98 /min [facility] Arterial blood by [facility] Pulse oximetry Branch Body temperature 2022-01-15 13:32:00 37.11 Irene [facility] Body height 2022-01-15 13:32:00 154.9 cm [facility] Body weight 2022-01-15 13:32:00 54.432 kg [facility] BMI 2022-01-15 13:32:00 22.67 kg/m2 [facility] Systolic blood 2022-01-09 00:37:11 127 mm[Hg] Univer sity of pressure [facility] Diastolic blood 2022-01-09 00:37:11 90 mm[Hg] Unive rsity of pressure [facility] Heart rate 2022-01-09 00:37:11 94 /min [facility] Body temperature 2022-01-09 00:37:11 37.11 Irene [facility] Respiratory rate 2022-01-09 00:37:11 16 /min [facility] Oxygen saturation in 2022-01-09 00:37:11 97 /min [facility] Arterial blood by [facility] Pulse oximetry Branch Body height 2022-01-08 23:03:00 154.9 cm [facility] Body weight 2022-01-08 23:03:00 58.06 kg [facility] BMI 2022-01-08 23:03:00 24.19 kg/m2 [facility] Systolic blood 2021-12-12 18:00:00 126 mm[Hg] Univer sity of pressure [facility] Diastolic blood 2021-12-12 18:00:00 87 mm[Hg] Unive rsity of pressure [facility] Heart rate 2021-12-12 18:00:00 86 /min [facility] Body temperature 2021-12-12 18:00:00 36.89 Irene [facility] Respiratory rate 2021-12-12 18:00:00 18 /min [facility] Body height 2021-12-12 18:00:00 154.9 cm [facility] Body weight 2021-12-12 18:00:00 57.153 kg [facility] BMI 2021-12-12 18:00:00 23.81 kg/m2 [facility] Systolic blood 2023-01-14 16:32:00 138 mm[Hg] Univer sity of pressure [facility] Diastolic blood 2023-01-14 16:32:00 84 mm[Hg] Unive rsity of pressure [facility] Heart rate 2023-01-14 16:32:00 67 /min [facility] Body temperature 2023-01-14 16:32:00 36.5 Irene [facility] Respiratory rate 2023-01-14 16:32:00 16 /min [facility] Oxygen saturation in 2023-01-14 16:32:00 99 /min [facility] Arterial blood by [facility] Pulse oximetry [place] Body height 2023-01-12 09:05:00 154.9 cm [facility] Body weight 2023-01-12 09:05:00 58.968 kg [facility] BMI 2023-01-12 09:05:00 24.56 kg/m2 [facility] Procedures Procedure Date / Time Performing Clinician Source Performed PHOSPHORUS 2023-01-15 08:15:00 Benita Rockwell [facility] MAGNESIUM 2023-01-15 08:15:00 Benita Rockwell [facility] BASIC METABOLIC PANEL 2023-01-15 08:15:00 Benita Rockwell [facility] versity [facility] (NA, K, CL, CO2, GLUCOSE, Medica l Branch BUN, CREATININE, CA) CBC WITH DIFF 2023-01-15 08:15:00 Benita Rockwell [facility] PROTHROMBIN TIME / INR 2023-01-15 08:15:00 [facility] 2023-01-14 10:14:00 Benita Rockwell [facility] PHOSPHORUS 2023-01-14 10:14:00 Benita Rockwell Daphnie [facility] BASIC METABOLIC PANEL 2023-01-14 10:14:00 Benita Rockwell [facility] (NA, K, CL, CO2, GLUCOSE, Medica l Branch BUN, CREATININE, CA) CBC WITH DIFF 2023-01-14 10:14:00 Benita Rockwell [facility] PHOSPHORUS 2023-01-14 10:14:00 Benita Rockwell [facility] MAGNESIUM 2023-01-14 10:14:00 Benita Rockwell [facility] BASIC METABOLIC PANEL 2023-01-14 10:14:00 Benita Rockwell [facility] (NA, K, CL, CO2, GLUCOSE, Medica l Branch BUN, CREATININE, CA) CBC WITH DIFF 2023-01-14 10:14:00 Hill, Benita [facility] CBC WITH DIFF 2023-01-13 10:45:00 Vaishnavi, [facility] BASIC METABOLIC PANEL 2023-01-13 10:45:00 Vaishnavi, [facility] (NA, K, CL, CO2, GLUCOSE, Medica l Branch BUN, CREATININE, CA) MAGNESIUM 2023-01-13 10:45:00 Vaishnavi, [facility] PHOSPHORUS 2023-01-13 10:45:00 Vaishnavi, [facility] HEPATIC FUNCTION PANEL 2023-01-13 10:45:00 Vaishnavi, [facility] ([id number]) (ALB,T.PRO,BILI Medical Branch T,BU/BC,ALT,AST,ALK PHOS) PHOSPHORUS 2023-01-13 10:45:00 Vaishnavi, [facility] MAGNESIUM 2023-01-13 10:45:00 Vaishnavi, [facility] HEPATIC FUNCTION PANEL 2023-01-13 10:45:00 Vaishnavi, [facility] ([id number]) (ALB,T.PRO,BILI Medical [place] T,BU/BC,ALT,AST,ALK PHOS) BASIC METABOLIC PANEL 2023-01-13 10:45:00 Vaishnavi, [facility] (NA, K, CL, CO2, GLUCOSE, Medica l Branch BUN, CREATININE, CA) CBC WITH DIFF 2023-01-13 10:45:00 Vaishnavi, [facility] GLUCOSE BODY FLUID 2023-01-12 20:44:00 VaishnaviRodolfo wade [facility] BODY FLUID MANUAL DIFF 2023-01-12 20:44:00 Vaishnavi, [facility] T.PROTEIN BODY FLUID 2023-01-12 20:44:00 Rodolfo Riggins [facility] ASPIRATE OR ABSCESS 2023-01-12 20:44:00 VaishnaviRodolfo wade [facility] CULTURE(AEROBIC/ANAEROBIC Medica l Branch ) LDH TOTAL BODY FLUID 2023-01-12 20:44:00 VaishnaviRodolfo wade [facility] GLUCOSE BODY FLUID 2023-01-12 20:44:00 Vaishnavi, Rodolfo Sanchez [facility] T.PROTE[facility] BODY FLUID 2023-01-12 20:44:00 VaishnaviRodolfo [facility] BODY FLUID DIRECT COUNT 2023-01-12 20:44:00 VaishnaviRodolfo l [facility] ASPIRATE OR ABSCESS 2023-01-12 20:44:00 [facility]Rodolfo [facility] C[facility]OBIC[facility]OBIC [facility] ) LDH TOTAL BODY FLUID 2023-01-12 20:44:00 VaishnaviRodolfo [facility] PROTHROMBIN TIME / INR 2023-01-12 08:13:00 VaishanviRodolfo [facility] PROTHROMBIN TIME / INR 2023-01-12 08:13:00 Vaishnavi, Rodolfo Sanchez [facility] COMP. METABOLIC PANEL 2023-01-12 03:49:00 Ciera García [facility] ([id number]) [facility] COMP. METABOLIC PANEL 2023-01-12 03:49:00 Ciera García [facility] ([id number]) [facility] CT ABDOMEN PELVIS W 2023-01-12 03:32:06 Ciera García [facility] CONTRAST [facility] CT ABDOMEN PELVIS W 2023-01-12 03:32:06 Ciera García [facility] POCT TEST 2023-01-12 03:02:00 Ciera García [facility] POCT TEST 2023-01-12 03:02:00 Ciera García [facility] URINALYSIS 2023-01-12 02:56:00 Ciera García [facility] LIPASE 2023-01-12 02:56:00 Ricky [facility] TOTAL BETA HCG ASSAY 2023-01-12 02:56:00 Ciera García [facility] CBC WITH DIFF 2023-01-12 02:56:00 Ricky [facility] EXTRA TUBE ORANGE 2023-01-12 02:56:00 [facility] EXTRA TUBE LAV 2023-01-12 02:56:[address] [facility] LIPASE 2023-01-12 02:56:00 Ricky [facility] TOTAL BETA HCG ASSAY 2023-01-12 02:56:00 Ciera García [facility] CBC WITH DIFF 2023-01-12 02:56:00 Ricky [facility] URINALYSIS 2023-01-12 02:56:00 Ricky [facility] EXTRA TUBE LAV 2023-01-12 02:56:[address] [facility] EXTRA TUBE ORANGE 2023-01-12 02:56:00 [facility] CONSENT/REFUSAL FOR 2023-01-12 01:46:10 Doctor Unassigned, No [facility] [place] [facility] Name Medical Branch CONSENT/REFUSAL FOR 2023-01-12 01:46:10 Doctor Unassigned, No [facility] [place] [facility]REAT[facility] Name Medical Branch ASSIGNMENT OF BENEFITS 2022-11-21 19:49:02 Doctor Unassigned, No [facility] ASSIGNMENT OF BENEFITS 2022-11-21 19:49:02 Doctor Unassigned, No [facility] Branch CONSENT/REFUSAL FOR 2022-11-21 18:03:25 Doctor Unassigned, No [facility] [place] DI[facility] TREATMENT Name Medical Branch CONSENT/REFUSAL FOR 2022-11-21 18:03:25 Doctor Unassigned, No [facility] [place] [facility] TREATMENT Name Medical [place] EMERGENCY SERVICES 2022-11-21 05:01:00 Doctor Unassigned, No Uni versity [facility] AGREEMENTS AND Name Medical Branch AUTHORIZATIONS CONSENT/REFUSAL FOR 2022-09-05 13:42:02 Doctor Unassigned, No [facility] [place] [facility]REAT[facility] Name Medical Branch LIPASE 2022-07-31 23:13:00 Manju Newell [facility] TEST, SERUM 2022-07-31 23:13:00 Manju Newell [facility] [place] [facility] COMP. METABOLIC PANEL 2022-07-31 23:13:00 Manju Newell Un [facility] ([id number]) [facility] CBC WITH DIFF 2022-07-31 23:13:00 Manju Newell [facility] CONSENT/REFUSAL FOR 2022-07-31 22:49:17 Doctor Unassigned, No Un [facility] DIAGNOSIS AND TREATMENT Name Medical [place] XR ANKLE 3+ VW RIGHT 2022-07-15 16:00:00 Cari Perdomo [facility] XR FOOT 3+ VW RIGHT 2022-07-15 16:00:00 [facility] XR FOOT 3+ VW RIGHT 2022-07-15 16:00:00 [facility] PATIENT FINANCIAL 2022-07-15 15:25:53 Doctor Unassigned, No [facility] POLICY [facility] POCT MOLECULAR STREP 2022-06-23 16:06:00 Unknown, Attending [facility] ASSIGNMENT OF BENEFITS 2022-06-23 15:18:28 Doctor Unassigned, No [facility] COMP. METABOLIC PANEL 2022-05-05 19:14:00 Karon Norton [facility] ([id number]) [facility] CBC WITH DIFF 2022-05-05 19:14:00 Karon Norton [facility] POCT TEST 2022-05-05 19:00:00 Karon Norton [facility] URINALYSIS 2022-05-05 18:58:00 Karon Norton [facility] CT ABDOMEN PELVIS WO 2022-04-26 15:11:00 Zion Bridges [facility] CONTRAST [facility] COMP. METABOLIC PANEL 2022-04-26 14:49:00 Zion Bridges [facility] ([id number]) [facility] CBC WITH DIFF 2022-04-26 14:49:00 Singer [facility] URINALYSIS 2022-04-26 14:49:00 Singer [facility] POCT TEST 2022-04-26 14:45:00 Zion Bridges [facility] CONSENT/REFUSAL FOR 2022-04-26 14:22:29 Doctor Unassigned, No [facility] [place] [facility] TREATMENT Name Medical Branch POCT TEST 2022-04-26 01:22:00 Zion Bridges [facility] ASSIGNMENT OF BENEFITS 2022-04-26 00:54:02 Doctor Unassigned, No [facility] URINALYSIS 2022-04-26 00:45:00 Singer [facility] o f [facility] CONSENT/REFUSAL FOR 2022-04-26 00:16:47 Doctor Unassigned, No [facility] [place] [facility]REAT[facility] Name Medical [place] BASIC METABOLIC PANEL 2022-04-07 22:35:00 Olamide Garvin [facility] (NA, K, CL, CO2, GLUCOSE, Medica l Branch BUN, CREATININE, CA) CBC WITH DIFF 2022-04-07 22:35:00 Olamide Garvin [facility] URINALYSIS 2022-04-07 21:36:00 Olamide Garvin [facility] URINE DRUG (IMMUNOASSAY) 2022-04-07 21:36:00 Olamide Garvin [facility] [place] [facility] DR[facility] Medical Bra nch SCREEN W/O REFLEX CONSENT/REFUSAL FOR 2022-04-07 19:29:15 Doctor Unassigned, No [facility] [place] [facility] Name Medical [place] POCT TEST 2022-03-24 14:07:00 [facility] CONSENT/REFUSAL FOR 2022-03-24 13:27:20 Doctor Unassigned, No [facility] [place] [facility] Medical [place] CT ABDOMEN PELVIS WO 2022-03-15 14:09:04 Anna Gould [facility] CONTRAST [facility] URINALYSIS 2022-03-15 13:53:[address] [facility] PO[facility] 2022-03-15 13:52:00 Anna Gould [facility] CONSENT/REFUSAL FOR 2022-03-15 13:37:02 Doctor Unassigned, No [facility] [place] [facility] TREAT[facility] Name Medical Branch POCT TEST 2022-03-11 14:59:00 Angelica Viveros [facility] FLU VACC ([id number]), 6 2022-02-27 13:34:55 Vijay Martinez [facility] MO-64 YRS, .5ML, IM, QUAD Medica l Branch (FLUCELVAX) NOTICE OF PRIVACY 2022-02-21 06:06:30 Doctor Unassigned, No [facility] PRACTICES Name Medical Branch CONSENT/REFUSAL FOR 2022-02-21 06:03:41 Doctor Unassigned, No [facility] Name Medical [place] XR ANKLE <3 VW RIGHT 2022 17:56:42 Maggie Hamilton [facility] CT ABDOMEN PELVIS W 2022 17:44:17 Maggie Hamilton [facility] CT TRAUMA CERVICAL SPINE 2022 17:43:49 Maggie Hamilton [facility] CONTRAST [facility] POCT TEST 2022 17:27:00 Maggie Hamilton [facility] COMP. METABOLIC PANEL 2022 17:17:00 Maggie Hamilton [facility] ([id number]) [facility] CBC WITH DIFF 2022 17:17:00 Maggie Hamilton [facility] CONSENT/REFUSAL FOR 2022 16:53:13 Doctor Unassigned, No [facility] Name Medical [place] US GALL BLADDER 2022-01-18 12:31:09 Bernardo Levy Dennis o f [facility] US PELVIS COMPLETE WITH 2022-01-18 12:21:13 Melvin Zhao [facility] TRANSVAGINAL [facility] Branch CT ABDOMEN PELVIS W 2022-01-18 11:20:50 Melvin Zhao [facility] CONTRAST [facility] POCT TEST 2022-01-18 10:57:00 Jayy Kennedy [facility] COVID-19 (ID NOW RAPID 2022-01-18 10:57:00 Jayy Kennedy [facility] TESTING) Medical Branch URINALYSIS 2022-01-18 10:47:00 Brent [facility] LIPASE 2022-01-18 10:29:00 Brent [facility] Torrie [facility] TEST, SERUM 2022-01-18 10:29:00 Kennedy [facility] HEPATIC FUNCTION PANEL 2022-01-18 10:29:00 Brent Jayy Torrie [facility] ([id number]) (ALB,T.PRO,BILI Medical Branch T,BU/BC,ALT,AST,ALK PHOS) BASIC METABOLIC PANEL 2022-01-18 10:29:00 [facility] (NA, K, CL, CO2, GLUCOSE, Medica l Branch BUN, CREATININE, CA) CBC WITH DIFF 2022-01-18 10:29:00 [place] [facility] CONSENT/REFUSAL FOR 2022-01-18 10:13:31 Doctor Unassigned, No [facility] Name [facility] CT HEAD WO CONTRAST 2022-01-15 15:22:29 Danita [facility] TEST, SERUM 2022-01-15 14:36:00 Danita [facility] BASIC METABOLIC PANEL 2022-01-15 14:36:00 Danita [facility] (NA, K, CL, CO2, GLUCOSE, Medica l Branch BUN, CREATININE, CA) CBC WITH DIFF 2022-01-15 14:36:00 Danita [facility] CONSENT/REFUSAL FOR 2022-01-15 13:28:12 Doctor Unassigned, No [facility] TREATMENT Name [facility] XR CERVICAL SPINE 4 VW 2022-01-09 00:29:16 Gabriela [facility] XR LUMBAR SPINE 4 VW 2022-01-09 00:29:16 Gabriela [facility] XR SPINE THORACIC 3 VW 2022-01-09 00:29:16 Gabriela [facility] URINALYSIS 2022-01-08 23:50:00 Gabriela [facility] CONSENT/REFUSAL FOR 2022-01-08 22:51:08 Doctor Unassigned, No Un [facility] DIAGNOSIS AND TREATMENT Name Medical Branch GALV ONLY - VAGINAL 2021-12-12 18:37:00 Prasanna Vargas [facility] PATHOGENS BY NUCLEIC ACID Medica l Branch TESTING URINE CULTURE 2021-12-12 18:32:00 Prasanna Vargas Dennis o f [facility] POCT TEST 2021-12-12 18:31:00 Prasanna Vargas [facility] POCT URINALYSIS W/O 2021-12-12 18:31:00 Prasanna Vargas [facility] SPECIFIC GRAVITY Medical Branch Encounters Start End Encounter Admission Attending Care Care Encounter Source Date/Time Date/Time Type Type Clinicians Facility Department ID 2021-03-14 [facility] [id number] Univers 03:14:31 ity of [facility] 2021-03-13 [facility] [id number] Univers 20:05:20 ity of [facility] 2021-03-13 Emergency [facility] [id number] Univers 12:48:28 ity of [facility] 2021-03-13 Emergency [facility] [id number] Univers 02:43:51 ity of [facility] 2021-03-13 Emergency [facility] [id number] Univers 00:27:09 ity of [facility] 2021-03-12 Emergency [facility] [id number] Univers 22:10:36 ity of [facility] 2021-03-12 Emergency [facility] [id number] Univers 20:04:05 ity of [facility] 2021-03-12 Emergency [facility] [id number] Univers 15:25:05 ity of [facility] 2021-03-12 Emergency [facility] [id number] Univers 11:43:36 ity of [facility] 2021-03-12 Emergency [facility] [id number] Univers 07:41:37 ity of [facility] 2021-03-12 Emergency [facility] [id number] Univers 05:43:47 ity of [facility] 2021-03-12 Emergency [facility] [id number] Univers 03:43:41 ity of [facility] 2021-03-12 Emergency [facility] [id number] Univers 01:31:27 ity of [facility] 2021-03-12 Emergency X [facility] ERT [id number] Univers 00:56:44 ity of [facility] 2021-03-12 Emergency [facility] [id number] Univers 00:56:31 ity of [facility] 2021-03-11 Emergency [facility] [id number] Univers 17:47:02 ity of [facility] 2021-03-11 Emergency [facility] [id number] Univers 16:27:15 ity of [facility] 2021-03-11 Emergency [facility] [id number] Univers 12:00:58 ity of [facility] 2021-03-11 Emergency [facility] [id number] Univers 10:33:59 ity of [facility] 2021-03-11 Emergency [facility] [id number] Univers 01:36:52 ity of [facility] 2021-03-10 Emergency [facility] [id number] Univers 23:35:34 ity of [facility] 2021-03-10 Emergency [facility] [id number] Univers 19:06:16 ity of [facility] 2021-03-10 [facility] [id number] Univers 12:39:47 ity of [facility] 2021-03-10 [facility] [id number] Univers 06:54:04 ity of [facility] 2021-03-09 Outpatient P [facility] CHRIS [id number] Univers 13:25:44 ity of [facility] 2021-03-09 Outpatient P [facility] [id number] Univers 13:08:01 ity of [facility] 2021-03-09 Outpatient P [facility] CHR[facility] [id number] Univers 12:37:25 ity of [facility] 2021-03-09 Outpatient P [facility] CHRIS [id number] Univers 11:51:20 ity of [facility] 2023-02-14 2023-02-14 Outpatient SFA SFA [id number] Willis 12:59:23 12:59:23 Abdullahi5 Jeffery 2023-02-06 2023-02-06 Outpatient SFA SFA [id number] Willis 18:19:02 18:19:02 0927 F Jeffery 2023-01-30 2023-01-30 Outpatient ERICKSON_R [facility] [id number] [place] 00:00:00 00:00:00 920 [facility] i [facility] 2023-01-16 2023-01-16 Transition HILARIO Odell 1.2.840.114 [id number] Univers 00:00:00 00:00:00 of Care Marlys DIMASY 350.1.13.10 [place] [id number] [facility] 403 Branch 2023-01-11 2023-01-15 Inpatient X PERSON, [facility] [id number] Univers 21:06:00 16:00:00 [facility] 2023-01-11 2023-01-15 Hospital Aroldo Siddiqui 1.2.840.11 [id number] Univers 21:06:00 16:00:00 Encounter Mirella Vergara 350.1.13.10 [facility] 4.2.7.2.686 [place] [id number] [facility] 091 Branch 2023-01-12 2023-01-12 Travel 1.2.840.1 1.2.258.195 [id number] Univers 00:00:00 00:00:00 93784.1.1 350.1.13.10 ity of 3.104.2.7 [place].698 [place] .3.265[place] 084.8 Medica l .8 Branch 2023-01-11 2023-01-11 Travel 1.2.840.1 1.2.095.903 [id number] Univers 00:00:00 00:00:00 05542.1.1 350.1.13.10 ity of 3.104.2.[place].698 [place] .3.162233 084.8 Medica l .8 Branch 2022-12-28 2022-12-28 Outpatient ERICKSON_R [facility] [id number] [place] 00:00:00 00:00:00 818 Commun i ty Hospita l [facility] 2022-12-14 2022-12-14 Outpatient [facility] [id number] Willis 18:37:13 18:37:13 0804 F Jeffery 2022-12-13 2022-12-13 Outpatient ERICKSON_R [facility] [id number] [place] 00:00:00 00:00:00 803 Commun i ty Hospita l [facility] 2022-12-12 2022-12-12 Outpatient R PRASANNA [facility] [id number] Univers 09:30:00 09:30:00 ity [facility] 2022-11-21 2022-11-21 Emergency X OSIRIS [facility] ERT [id number] Univers 13:08:00 16:45:00 MANJU it y [facility] 2022-11-21 2022-11-21 Emergency Zion Bridges 1.2.840.8 [id number] Univers 13:08:00 16:45:00 Manju Newell 48220.1.1 ity of 3.104.2.7 [place] .3.912241 Medica l .8 [place] 2022-11-21 2022-11-21 Travel 1.2.840.1 1.2.497.343 [id number] Univers 00:00:00 00:00:00 20614.1.1 350.1.13.10 ity of 3.104.2.7 [place].3.698 [place] .3.475319 084.8 Medica l .8 [place] 2022-11-18 2022-11-18 Outpatient [facility] [id number] Willis 10:08:00 10:08:00 0709 F Jeffery 2022-11-15 2022-11-15 Outpatient R [facility]AN [facility] [id number] Univers 09:40:00 09:40:00 LIAN GREENE chino [facility] 2022-11-15 2022-11-15 Orders Niru, 1.2.840.2 [id number] Univers 00:00:00 00:00:00 Only Palak 54020.1.1 ity of 3.104.2.7 [place] .3.063081 Medica l .8 [place] 2022-11-09 2022-11-09 Outpatient SFA [facility] [id number] Willis 15:26:18 15:26:18 0630 F Jeffery 2022-11-06 2022-11-06 Outpatient R [facility] [id number] Univers 13:00:00 13:00:00 VIJAY ity of [facility] 2022-10-29 2022-10-29 Patient Jc, 1.2.840.7 [id number] Univers 00:00:00 00:00:00 Secure Msg Lian 84538.1.1 ity of 3.104.2.7 [place] .3.675303 Medica l .8 [place] 2022-10-29 2022-10-29 Patient Prasanna Vargas 1.2.840.8 [id number] Univers 00:00:00 00:00:00 Secure Msg Cam 54377.1.1 i ty of 3.104.2.7 [place] .3.733971 Medica l .8 [place] 2022-10-03 2022-10-03 Letter Gurjit Lim [facility] 1.2.840.114 [id number] Univers 00:00:00 00:00:00 (Out) [facility] 350.1.13.10 it y of [place] 4.2.7.2.686 [place] as TOÑO?BLEA [id number] Ne whit [facility] [address] [place] MEDICAL OFFICE BUILDING 2022-10-02 2022-10-02 Outpatient R [facility] [id number] Univers 10:00:00 10:00:00 , CELINA it y of [facility] 2022-10-01 2022-10-01 Outpatient R [facility] [id number] Univers 09:40:00 09:40:00 REJI lechuga o f [facility] 2022-09-25 2022-09-25 Telephone [facility] 1..500.744 [id number] Univers 00:00:00 00:00:00 Sendaz [facility] [place] 350.1.13.10 ity of [place].2.7.2.[place] PROF[place] [id number] Ne dicaliyah TORRES 059 [facility] 2022-09-21 2022-09-21 Outpatient R [facility] [id number] Univers 09:30:00 09:30:00 [facility]DRA [facility] 2022-09-21 2022-09-21 Letter [facility] 1.2.840.114 [id number] Univers 00:00:00 00:00:00 (Out) Smithers Avanza 350.1.13.10 it y of [place] 4.2.7.2.686 [place] TOÑO?BLEA [id number] Ne dicaliyah [facility] [address] [place] [address] 2022-09-21 2022-09-21 Telephone [facility] 1.2.384.124 [id number] Univers 00:00:00 00:00:00 Smithers Avanza 350.1.13.10 it y of [place] 4.2.7.2.686 [place] TOÑO?BLEA [id number] Ne dicaliyah [place] [address] [place] [address] 2022-09-21 2022-09-21 Telephone [facility] 1.2.822.539 [id number] Univers 00:00:00 00:00:00 Smithers Avanza 350.1.13.10 it y of [place] 4.2.7.2.686 [place] TOÑO?BLEA [id number] Ne dicaliyah [facility] [address] [place] [address] 2022-09-14 2022-09-14 Outpatient R [facility] [id number] Univers 09:30:00 09:30:00 [facility] 2022-09-12 2022-09-12 Telephone [facility] 1.2.473.565 [id number] Univers 00:00:00 00:00:00 Smithers Avanza 350.1.13.10 it y of [place] 4.2.7.2.686 [place] TOÑO?BLEA [id number] Ne dical MIKI [address] [place] [address] 2022-09-07 2022-09-07 Outpatient R [facility] [id number] Univers 11:30:00 11:30:00 KASSANDRA ity [facility] 2022-09-05 2022-09-05 Emergency X GUTIERREZ [facility] ERT [id number] Univers 08:44:00 13:15:00 CYNISE itchino [facility] 2022-09-05 2022-09-05 Emergency [facility] 1.2.546.562 [id number] Univers 08:44:00 13:15:00 Cynise LULU 350.1.13.10 i ty [facility] [place].2.7.2.[place] [id number] [address] 2022-09-04 2022-09-04 Telephone [facility] 1.2.368.613 [id number] Univers 00:00:00 00:00:00 Kassandra HEALTH 350.1.13.10 it y of [place] 4.2.7.2.686 [place]ÑO?BLEA [id number] [address] MEDICAL OFFICE [facility] 2022-09-04 2022-09-04 Patient Serra, [facility] 1.2.840.114 [id number] Univers 00:00:00 00:00:00 Secure Msg Rad LAWSON 350.1.13.10 ity of [place].2.7.2.686 [place] [facility] [id number] Ne dical NAL 059 [facility] 2022-08-29 2022-08-29 Outpatient R [facility] [id number] Univers 09:00:00 09:00:00 , CELINA it y of [facility] 2022-08-14 2022-08-14 Patient Doctor [facility] 1.2.840.114 [id number] Univers 00:00:00 00:00:00 Secure Msg Unassigned, HEALTH 350.1.13.10 ity of [place] 4.2.7.2.686 [place] TOÑO?BLEA [id number] Ne dic[address] MEDICAL OFFICE [facility] 2022-07-31 2022-07-31 Emergency X RIDRAFA, [facility] ERT [id number] Univers 17:56:00 20:30:00 CHRISTOPHER it y of [facility] 2022-07-31 2022-07-31 [facility] 1.2.847.691 [id number] Univers 17:56:00 20:30:00 Christadrianaer LULU 350.1.13.10 ity of [facility] 4.2.7.2.686 [place] [id number] [facility] 084 Branch 2022-07-15 2022-07-15 Outpatient R [facility] [id number] Univers 09:46:45 23:59:00 CARI ity o f [facility] 2022-07-15 2022-07-15 [facility] 1.2.840.114 [id number] Univers 09:46:45 23:59:00 Encounter Cari Farmer [facility] 350.1.13.10 ity [facility] 4.2.7.2.686 [place] TOÑO?BLEA [id number] [facility] 8[address] [place] MEDICAL OFFICE [facility] 2022-07-15 2022-07-15 [facility] 1.2.840.114 [id number] Univers 09:46:45 23:59:[address] [facility] 350.1.13.10 ity of [place] 4.2.7.2.686 [place] as TOÑO?BLEA [id number] [facility] 808 [facility] OFFICE [facility] 2022-07-15 2022-07-15 Urgent NatashaCari draper [facility] 1.2.840 .114 [id number] Univers 09:20:00 10:29:17 Care Unknown, Attending HEALTH 350.1.13.10 ity of [place] 4.2.7.2.686 [place] TOÑO?BLEA [id number] [facility] 370 [place] MEDICAL OFFICE BUILDING 2022-07-15 2022-07-15 Orders Doctor JORDAN 1.2.840.114 [id number] Univers 00:00:00 00:00:00 Only Unassigned, YAZMIN 350.1.13.10 ity of [place] [facility] 4.2.7.2.686 [place] as [id number] [address] 2022-06-23 2022-06-23 Outpatient R [facility] [id number] Univers 09:20:00 10:27:39 PAUL chino [facility] 2022-06-23 2022-06-23 Urgent Paul Samayoa [facility] 1.2.840. 114 [id number] Univers 09:20:00 10:27:39 Care Unknown, Attending HEALTH 350.1.13.10 ity of [place] 4.2.7.2.686 Martin as TOÑO?BLEA [phone] [facility] [address] MEDICAL OFFICE BUILDING 2022-06-23 2022-06-23 Orders Doctor JORDAN 1.2.840.114 [id number] Univers 00:00:00 00:00:00 Only Unassigned, YAZMIN 350.1.13.10 ity of [place] [facility] 4.2.7.2.686 Martin as [id number] [address] 2022-06-15 2022-06-15 [facility] [id number] Univers 09:40:00 09:40:00 LIAN [facility] 2022-05-29 2022-05-29 Outpatient [facility] [id number] Univers 08:00:00 08:00:00 KASSANDRA [facility] 2022-05-15 2022-05-15 Outpatient R [facility] [id number] Univers 09:20:00 09:20:00 BENNETT [facility] 2022-05-11 2022-05-11 Outpatient [facility] [id number] Univers 09:30:00 09:30:00 KASSANDRA [facility] 2022-05-05 2022-05-05 Emergency X ERROL, [facility] ERT [id number] Univers 12:26:00 16:11:00 KARON [facility] 2022-05-05 2022-05-05 [facility] 1.2.840.114 [id number] Univers 12:26:00 16:11:00 Karon LAWSON 350.1.13.10 i ty of [place] 4.2.7.2.686 [facility] [id number] [address] 2022-05-01 2022-05-01 Outpatient R PRASANNA [facility] [id number] Univers 00:00:00 00:00:00 ankush [facility] 2022-04-26 2022-04-26 Emergency X BRIDGES [facility] ERT [id number] Univers 08:30:00 09:59:00 ZION lechuga [facility] 2022-04-26 2022-04-26 Emergency [facility] 1.2.886.375 [id number] Univers 08:30:00 09:59:00 Zion LAWSON 350.1.13.10 i ty of [facility] 4.2.7.2.686 [facility] [id number] [address] 2022-04-25 2022-04-25 Emergency X GUTIERREZ, [facility] ERT [id number] Univers 18:23:00 21:55:00 CYNISE chino [facility] 2022-04-25 2022-04-25 Emergency [facility] 1.2.736.699 [id number] Univers 18:23:00 21:55:00 Kennedy LAWSON 350.1.13.10 i ty of [facility] 4.2.7.2.686 [facility] [id number] [address] 2022-04-19 2022-04-19 Outpatient Farzana [facility] [id number] Univers 10:00:00 10:00:00 LIAN ankush [facility] 2022-04-12 2022-04-12 Telephone [facility] 1.2.288.944 [id number] Univers 00:00:00 00:00:00 Smithers Avanza 350.1.13.10 it y of [place] 4.2.7.2.686 Martin as TOÑO?BLEA [id number] Ne alessandra[address] MEDICAL OFFICE BUILDING 2022-04-11 2022-04-11 Telephone Patti [facility] 1.2.840.114 [id number] Univers 00:00:00 00:00:00 [facility] 350.1.13.10 ity of [place] 4.2.7.2.686 [place] as TOÑO?BLEA [phone] Ne whit [address] MEDICAL OFFICE [facility] 2022-04-10 2022-04-10 Telephone [facility] 1.2.636.742 [id number] Univers 00:00:00 00:00:00 KassandraGoldbely 350.1.13.10 it y of [place] 4.2.7.2.686 [place] as TOÑO?BLEA [id number] Ne whit [address] OFFICE [facility] 2022-04-09 2022-04-09 Office [facility] 1.2.840.114 [id number] Univers 09:30:00 09:30:00 Visit [facility] 350.1.13.10 it y of [facility] 4.2.7.2.686 [place] as TOÑO?BLEA [id number] [address] OFFICE [facility] 2022-04-09 2022-04-09 Outpatient [facility] [id number] Univers 09:30:00 09:21:44 KASSANDRA ity [facility] 2022-04-07 2022-04-07 Emergency X [facility] ERT [id number] Univers 13:41:00 17:49:00 OLAMIDE lechuga [facility] 2022-04-07 2022-04-07 Emergency [facility] 1.2.414.192 [id number] Univers 13:41:00 17:49:00 Olamide LAWSON 350.1.13.10 ity of [place] 4.2.7.2.686 [place] [id number] [facility] [address] [place] 2022-04-07 2022-04-07 Patient Doctor JORDAN 1.2.840.114 [id number] Univers 00:00:00 00:00:00 Secure Msg Unassigned, YAZMIN 350.1.13.10 ity of [place] [facility] 4.2.7.2.686 [place] as [id number] [facility] [address] [place] 2022-04-04 2022-04-[address] [facility] 1.2.936.063 [id number] Univers 00:00:00 00:00:00 Kassandra HEALTH 350.1.13.10 it y of [place] 4.2.7.2.686 [place] as TOÑO?BLEA [id number] Ne whit [address] 2022-04-02 2022-04-02 Outpatient Farzana [facility] [id number] Univers 10:30:00 10:30:00 KASSANDRA itchino [facility] 2022-03-28 2022-03-28 Patient Doctor [facility] 1.2.840.114 [id number] Univers 00:00:00 00:00:00 Secure [facility] 350.1.13.10 ity of [place] 4.2.7.2.686 [place] as TOÑO?BLEA [id number] [address] 2022-03-24 2022-03-24 Emergency X PERLA, [facility] ERT [id number] Univers 07:35:00 13:11:00 KELLIE lechuga [facility] 2022-03-24 2022-03-24 Emergency [facility] 1.2.279.516 [id number] Univers 07:35:00 13:11:00 Kellie LAWSON 350.1.13.10 ity of [place] 4.2.7.2.686 [place] [facility] [id number] [address] 2022-03-23 2022-03-23 Outpatient Farzana [facility] [id number] Univers 10:30:00 10:30:00 KASSANDRA lechuga [facility] 2022-03-23 2022-03-23 Telephone [facility] 1.2.840.114 [id number] Univers 00:00:00 00:00:00 [facility] 350.1.13.10 ity of [place] 4.2.7.2.686 [place] as TOÑO?BLEA [id number] [address] 2022-03-22 2022-03-22 Telephone Patti [facility] 1.2.840.114 [id number] Univers 00:00:00 00:00:00 [facility] 350.1.13.10 ity of [facility] 4.2.7.2.686 [place] as TOÑO?BLEA [id number] [address] 2022-03-22 2022-03-22 Refill [facility] 1.2.840.114 [id number] Univers 00:00:00 00:00:00 [facility] 350.1.13.10 ity of [facility] 4.2.7.2.686 [place] TOÑO?BLEA [id number] [address] 2022-03-21 2022-03-21 [facility] 1.2.840.114 [id number] Univers 00:00:00 00:00:00 [facility] 350.1.13.10 ity of [place] 4.2.7.2.686 [place] as TOÑO?BLEA [id number] [address] 2022-03-15 2022-03-15 Outpatient R [facility] [id number] Univers 14:00:00 14:36:19 [facility] o f [facility] 2022-03-15 2022-03-15 Office [facility] 1.2.840.114 [id number] Univers 14:00:00 14:36:19 Visit ArleyFormerly [facility] 350.1.13.10 ity of [place] 4.2.7.2.686 [place] [facility] [id number] [facility] 059 [facility] 2022-03-15 2022-03-15 Emergency X [facility] ERT [id number] Univers 08:40:00 10:47:00 ANNA ity [facility] 2022-03-15 2022-03-15 Emergency [facility] 1.2.840.114 [id number] Univers 08:40:00 10:47:00 Anna [place] 350.1.13.10 i ty of [facility] 4.2.7.2.686 [place] [id number] [address] 2022-03-14 2022-03-14 Outpatient R ALICIA [facility] [id number] Univers 10:30:00 10:30:00 ity [facility] 2022-03-11 2022-03-11 Emergency X FELICE [facility] ERT [id number] Univers 09:22:00 12:15:00 SHINTA ity [facility] 2022-03-11 2022-03-11 Emergency [facility] 1.2.840.114 [id number] Univers 09:22:00 12:15:00 Shinta [place] 350.1.13.10 i ty of [place] 4.2.7.2.686 [place] [facility] [id number] [address] 2022-03-06 2022-03-06 Outpatient Farzana L[facility]Y [facility] [id number] Univers 08:30:00 08:30:00 KASSANDRA [facility] 2022-03-02 2022-03-02 Telephone Patti [facility] 1..840.114 [id number] Univers 00:00:00 00:00:00 Smart Cube 350.1.13.10 ity of [place] 4.2.7.2.686 [place] as TOÑO?BLEA [id number] [address] MEDICAL OFFICE [facility] 2022-02-28 2022-02-28 Patient Doctor [facility] 1..840.114 [id number] Univers 00:00:00 00:00:00 Secure Msg Unassigned, [facility] 350.1.13.10 ity of [place] 4.2.7.2.686 [place] as TOÑO?BLEA [id number] [address] MEDICAL OFFICE [facility] 2022-02-27 2022-02-27 Outpatient R L[facility] [id number] Univers 09:30:00 09:49:42 KASSANDRA chino [facility] 2022-02-27 2022-02-27 Office [facility] 1..840.114 [id number] Univers 09:30:00 09:49:42 Visit Smithers Avanza 350.1.13.10 it y of [place] 4.2.7.2.686 [place] as TOÑO?BLEA [id number] Ne whit [place] [address] [place] MEDICAL OFFICE [facility] 2022-02-27 2022-02-27 Office Juan [facility] 1.2.840.114 [id number] Univers 08:00:00 09:12:17 Visit Vijay PETTY 350.1.13.10 it y of [place] 4.2.7.2.686 [place] as TOÑO?BLEA [id number] [facility] 044 [facility] OFFICE [facility] 2022-02-26 2022-02-26 Outpatient R LEXY [facility] [id number] Univers 11:30:00 11:30:00 KASSANDRA ankush [facility] 2022-02-21 2022-02-21 Emergency X [facility] ERT [id number] Univers 01:20:00 03:44:00 MAGGIE lechuga [facility] 2022-02-21 2022-02-21 Emergency [facility] 1.2.840.114 [id number] Univers 01:20:00 03:44:00 Maggie [facility] 350.1.13.10 ity of [place] 4.2.7.2.686 [place] [id number] [address] 2022-02-19 2022-02-19 Patient [facility] 1.2.840.114 [id number] Univers 00:00:00 00:00:00 Secure Msg Kendal Amaral [facility] 350.1.13.10 ity of [place] 4.2.7.2.686 [place] as TOÑO?BLEA [id number] Ne whit [place] [address] [place] [address] MEDICAL OFFICE [facility] 2022-02-19 2022-02-19 Patient [facility] 1.2.840.114 [id number] Univers 00:00:00 00:00:00 Secure Msg Kendal Amaral HEALTH 350.1.13.10 ity of [place] 4.2.7.2.686 [place] as TOÑO?BLEA [id number] Ne whit [place] [address] [place] [address] MEDICAL OFFICE [facility] 2022-02-19 2022-02-19 Patient Suzette [facility] 1.2.534.608 [id number] Univers 00:00:00 00:00:00 Secure Msg Ade WATERSY 350.1.13.10 ity of [facility] 4.2.7.2.686 [place] [id number] [facility] [address] 2022-02-19 2022-02-19 Patient Martin [facility] 1.2.840.114 [id number] Univers 00:00:00 00:00:00 Secure Msg Ross R PANELBEATER 350.1.13.10 ity of [facility] 4.2.7.2.686 [place] as MATERNAL [phone] Med ical & CHILD [address] [place] [address] 2022 2022 Emergency X [facility] ERT [id number] Univers 11:58:00 15:13:00 MAGGIE lechuga [facility] 2022 2022 Emergency [facility] 1.2.840.114 [id number] Univers 11:58:00 15:13:00 Maggie LAWSON 350.1.13.10 ity [facility] 4.2.7.2.686 [place] [facility] [id number] [facility] [address] [place] 2022-02-09 2022-02-09 Outpatient R BRANDON[facility] [id number] Univers 09:00:00 09:00:00 CRICKET davis [facility] 2022-02-06 2022-02-06 Outpatient R JUAN [facility] [id number] Univers 10:00:00 10:00:00 VIJAY lechuga [facility] 2022-02-05 2022-02-05 Nurse Nurse, F[facility] 1.2.840.114 [id number] Univers 09:45:00 10:05:00 Visit [facility] 350.1.13.10 ity [facility] 4.2.7.2.686 [place] as TOÑO?BLEA [id number] Ne whit [address] MEDICAL OFFICE BUILDING 2022-02-05 2022-02-05 Outpatient R OLIVER [facility] [id number] Univers 09:20:00 09:20:00 FLACO davis [facility] 2022-01-26 2022-01-26 Prasanna Gimenez [facility] 1.2.740.069 [id number] Univers 00:00:00 00:00:00 Management Jm LAWSON 350.1.13.10 ity [facility] 4.2.7.2.686 [place] [facility] [phone] Ne dical [address] 2022-01-22 2022-01-22 Outpatient R JUAN [facility] [id number] Univers 11:00:00 11:00:00 VIJAY ity of [facility] 2022-01-19 2022-01-19 Patient Doctor JORDAN 1.2.840.114 [id number] Univers 00:00:00 00:00:00 Secure Msg Unassigned, YAZMIN 350.1.13.10 ity [facility] 4.2.7.2.686 [facility] [id number] [facility] [address] [place] 2022-01-18 2022-01-18 Emergency X GARDENIA [facility] ERT [id number] Univers 05:17:00 10:25:00 [facility] 2022-[facility]-18 2022-01-18 Emergency Jayy Kennedy W TRAUMA 1.2.840.11 4 [id number] Univers 05:17:00 10:25:00 Bernardo Levy [facility] 350.1.13.10 ity [facility].2.7.2.686 [facility] [phone] [facility] [address] 2022-01-15 2022-01-15 Emergency X DANITA [facility] ERT [id number] Univers 08:34:00 10:49:00 MAURA lechuga [facility] 2022-01-15 2022-01-15 Emergency Ana Richelleayanna R [facility] 1.2.840.1 14 [id number] Univers 08:34:00 10:49:00 Maura Samayoa 350.1.13.10 ity [facility] 4.2.7.2.686 [facility] [id number] [facility] [address] 2022-01-08 2022-01-08 Emergency X GABRIELA [facility] ERT [id number] Univers 18:04:00 20:09:00 [facility]ERTO [facility] 2022-01-08 2022-01-08 Emergency Gabriela, [facility] 1.2.840.114 [id number] Univers 18:04:00 20:09:00 Humberto LAWSON 350.1.13.10 i ty of [facility] 4.2.7.2.686 [facility] [phone] [address] 2021-12-12 2021-12-12 Outpatient R DEYVI [facility] [id number] Univers 13:30:00 13:40:21 [facility] 2021-12-12 2021-12-12 Office VargasPrasanna Jm [facility] 1..840.114 [id number] Univers 13:30:00 13:40:21 Visit Teto Carnes 350.1.13.10 ity [facility] 4.2.7.2.686 [facility] [phone] Ne dical [address] 2021-12-12 2021-12-12 Outpatient Farzana CARNES [facility] [id number] Univers 13:30:00 13:40:21 [facility] 2021-12-12 2021-12-12 Outpatient R DEYVI [facility] [id number] Univers 13:30:00 13:40:21 [facility] 2021-12-11 2021-12-11 Outpatient R SUZETTE, [facility] [id number] Univers 16:15:00 16:15:00 ADE [facility] 2021-12-05 2021-12-05 Outpatient R LYSSA, [facility] [id number] Univers 14:15:00 14:15:00 ROMULO [facility] 2021-11-28 2021-11-28 Emergency X ERROL, [facility] ERT [id number] Univers 08:49:00 11:02:00 KARON [facility] 2021-11-28 2021-11-28 Emergency [facility] 1..840.114 [id number] Univers 08:49:00 11:02:00 Karon LAWSON 350.1.13.10 i ty of [place] 4.2.7.2.686 [facility] [id number] [address] 2021-11-28 2021-11-28 Patient Sushmagracie [facility] 1.2.602.034 [id number] Univers 00:00:00 00:00:00 Secure Msg Cricket Lopez PANELBEATER 350.1.13.10 ity of [facility] 4.2.7.2.686 Martin as MATERNAL [id number] [facility] & [address] 2021-11-24 2021-11-24 Emergency X DEV, K [facility] ERT [id number] Univers 18:14:00 21:04:00 ity of [facility] 2021-11-24 2021-11-24 Emergency Dev, [facility] 1.2.840.114 [id number] Univers 18:14:00 21:04:00 Sharlene [place] 350.1.13.10 i ty of [place] 4.2.7.2.686 [facility] [id number] [address] 2021-11-24 2021-11-24 Telephone Addisongracie [facility] 1.2.840.114 [id number] Univers 00:00:00 00:00:00 Cricket Lopez PANELBEATER 350.1.13.10 ity of [facility] 4.2.7.2.686 Martin as MATERNAL [id number] [address] 2021-11-20 2021-11-20 Patient Robb [facility] 1.2.840.114 [id number] Univers 00:00:00 00:00:00 Secure Msg Kendal [facility] 350.1.13.10 ity [facility] 4.2.7.2.686 Martin as TOÑO?BLEA [phone] Ne alessandra[address] MEDICAL OFFICE BUILDING 2021-11-19 2021-11-19 Letter JORDAN Santacruz 1.2.840.114 [id number] Univers 00:00:00 00:00:00 (Out) Leslie ARCE 350.1.13.10 it y of [facility] 4.2.7.2.686 [place] as [id number] [address] 2021-11-18 2021-11-18 [facility] [id number] Univers 10:41:40 23:59:00 FLACO lechuga o f [facility] 2021-11-18 2021-11-18 Hospital [facility] 1.2.762.234 [id number] Univers 10:41:40 23:59:00 Encounter [facility] 350.1.13.10 ity of [place] 4.2.7.2.686 [place] as TOÑO?BLEA [id number] Me dical MIKI [address] [place] MEDICAL OFFICE [facility] 2021-11-18 2021-11-18 Urgent [facility] 1.2.840.114 [id number] Univers 10:20:00 10:53:20 Care [facility] 350.1.13.10 i ty of [place] 4.2.7.2.686 [place] as TOÑO?BLEA [phone] Me whit [place] [address] [facility] OFFICE [facility] 2021-11-09 2021-11-09 Outpatient [facility] [id number] Univers 10:30:00 10:30:00 CELINA lechuga [facility] 2021-10-25 2021-10-25 Urgent Ileana Medrano [facility] ..840.114 9 [id number] Univers 13:20:00 13:20:00 Care [facility] 350.1.13.10 ity of [facility] 4.2.7.2.686 [place] as TOÑO?BLEA [id number] Ne dicaliyah [place] [address] [facility] OFFICE [facility] 2021-10-25 2021-10-25 Outpatient R [facility] [id number] Univers 13:20:00 12:47:59 ILEANA lechuga [facility] 2021-10-25 2021-10-25 Patient [facility] 1.2.840.114 [id number] Univers 00:00:00 00:00:[address] [facility] [employer] 350.1.13.10 ity of [place] 4.2.7.2.686 [place] as TOÑO?BLEA [id number] Me dical IVÁNEY [address] [place] MEDICAL OFFICE [facility] 2021-10-25 2021-10-25 Telephone Cotta, [facility] 1.2.449.468 [id number] Univers 00:00:00 00:00:00 Vijay HEALTH 350.1.13.10 it y of [place] 4.2.7.2.686 Martin as TOÑO?BLEA [id number] [facility] 044 [facility] OFFICE [facility] 2021-10-25 2021-10-25 Telephone Provider, [facility] 1.2.840.114 [id number] Univers 00:00:00 00:00:00 Ang Db HEALTH 350.1.13.10 it y of Urgent Care [place] 4.2.7.2.686 [place] TOÑO?BLEA [id number] [facility] [address] [place] MEDICAL OFFICE [facility] 2021-10-25 2021-10-25 Telephone Nurse, Filippo [facility] 1.2.840.114 [id number] Univers 00:00:00 00:00:00 Db Urgent HEALTH 350.1.13.10 ity of Care [place] 4.2.7.2.686 Martin as TOÑO?BLEA [id number] [facility] 370 [facility] OFFICE [facility] 2021-10-24 2021-10-24 Outpatient [facility] [id number] Univers 10:15:00 10:15:00 ROMULO [facility] 2021-10-24 2021-10-24 Outpatient [facility] [id number] Univers 10:15:00 10:15:00 ROMULO [facility] 2021-10-11 2021-10-11 Outpatient Farzana [facility] [id number] Univers 09:30:00 09:30:00 ROMULO [facility] 2021-10-10 2021-10-10 Outpatient PRASANNA [facility] [id number] Univers 13:30:00 13:30:00 ity [facility] 2021-10-10 2021-10-10 Outpatient PRASANNA [facility] [id number] Univers 13:30:00 13:30:00 ity [facility] 2021-10-10 2021-10-10 Outpatient R PRASANNA [facility] [id number] Univers 13:30:00 13:30:00 ity of [facility] 2021-10-10 2021-10-10 Outpatient [facility] [id number] Univers 13:30:00 13:30:00 ity of [facility] 2021-10-10 2021-10-10 Outpatient R PRASANNA [facility] [id number] Univers 13:30:00 13:30:00 ity of [facility] 2021-10-10 2021-10-10 Outpatient R ALICIA [facility] [id number] Univers 13:30:00 13:30:00 ity of [facility] 2021-10-10 2021-10-10 Outpatient [facility] [id number] Univers 13:30:00 13:30:00 ity of [facility] 2021-10-05 2021-10-05 Patient Robb [facility] 1.2.840.114 [id number] Univers 00:00:00 00:00:00 Secure Msg Kendal Amaral HEALTH 350.1.13.10 ity of [place] 4.2.7.2.686 [place] as TOÑO?BLEA [phone] [address] OFFICE [facility] 2021-10-05 2021-10-05 Patient Robb [facility] 1.2.840.114 [id number] Univers 00:00:00 00:00:00 Secure g Kendal Amaral HEALTH 350.1.13.10 ity of [place] 4.2.7.2.686 [place] as TOÑO?BLEA [phone] [address] MEDICAL OFFICE [facility] 2021-10-04 2021-10-04 Pre Visit HILARIO Rodriguez [id number] Univers 00:00:00 00:00:00 Outreach Melia TELL[place] 350.1.13.10 [phone] [address] 2021-09-28 2021-09-28 Office Apurva [facility] 1.2.840.114 [id number] Univers 13:30:00 13:45:00 Visit Celina Cannon [place] 350.1.13.10 [facility] [place] [phone] [address] 2021-09-28 2021-09-28 [facility] [id number] Univers 13:30:00 13:30:00 CELINA [facility] 2021-09-28 2021-09-28 [facility] [id number] Univers 13:30:00 13:30:[facility] 2021-09-28 [facility] 1.2.840.114 [id number] Univers 00:00:00 00:00:00 Secure Msg Celina Cannon [place] 350.1.13.10 [facility] 4[place].7.2.[place] [phone] [address] 2021-09-27 2021-09-27 Outpatient R [facility] [id number] Univers 14:00:00 14:00:00 TTEO [facility] 2021-09-27 2021-09-27 [facility] [id number] Univers 09:30:00 09:30:00 [facility] 2021-09-27 2021-09-27 Outpatient R [facility] [id number] Univers 09:30:00 09:30:00 [facility] 2021-09-27 2021-09-27 Outpatient R [facility] [id number] Univers 09:30:00 09:30:00 [facility] 2021-09-26 2021-09-26 Outpatient R [facility] [id number] Univers 10:45:00 10:45:00 CRICKET ity o f [facility] 2021-09-26 2021-09-26 Outpatient R [facility] [id number] Univers 10:45:00 10:45:00 CRICKET ity o f [facility] 2021-09-26 2021-09-26 Patient Juan [facility] 1.2.840.114 [id number] Univers 00:00:00 00:00:00 Secure [facility] 350.1.13.10 ity of [place] 4.2.7.2.686 [place] as TOÑO?BLEA [phone] Me dicaliyah [facility] [address] [place] MEDICAL OFFICE [facility] 2021-09-26 2021-09-26 Patient Juan [facility] 1.2.840.114 [id number] Univers 00:00:00 00:00:00 Secure [facility] Vijay HEALTH 350.1.13.10 ity of [place] 4.2.7.2.686 [place] TOÑO?BLEA [phone] [facility] 044 [facility] OFFICE [facility] 2021-09-25 2021-09-25 Urgent Flaco Boyd [facility] 1.2.840. 114 [id number] Univers 10:20:00 11:10:42 [facility] 350.1.13.10 ity of [facility] 4.2.7.2.686 [place] as TOÑO?BLEA [phone] [facility] 370 [facility] OFFICE [facility] 2021-09-25 2021-09-25 Outpatient R [facility] [id number] Univers 10:20:00 11:10:42 FLACO fitzpatrick [facility] 2021-09-25 2021-09-25 Outpatient R [facility] [id number] Univers 10:20:00 10:20:00 FLACO lechuga o [facility] 2021-09-25 2021-09-25 Outpatient R PRASANNA [facility] [id number] Univers 10:00:00 10:00:00 ity [facility] 2021-09-25 2021-09-25 Telephone [facility] 1.2.840.114 [id number] Univers 00:00:00 00:00:00 [facility] 350.1.13.10 i ty of [place] 4.2.7.2.686 [place] as TOÑO?BLEA [phone] Me dical KNEY [address] [place] MEDICAL OFFICE [facility] 2021-09-25 2021-09-25 Patient Prasanna Vargas [facility] 1.2.167.517 [id number] Univers 00:00:00 00:00:00 Secure Msg Cam [place] 350.1.13.10 ity of [place].2.7.2.[place] [phone] Ne dical NAL 134 [facility] 2021-09-25 2021-09-25 Telephone Brandon [facility] 1.2.840.114 [id number] Univers 00:00:00 00:00:00 Cricket C PANELBEATER 350.1.13.10 ity of [facility] 4.2.7.2.686 [place] as MATERNAL [phone] Med ical & CHILD 107 [facility] 2021-09-25 2021-09-25 Telephone Apurva [facility] 1.2.022.917 [id number] Univers 00:00:00 00:00:00 Celina SAM 350.1.13.10 ity of [facility] 4.2.7.2.686 [place] [phone] [address] 2021-09-15 2021-09-15 Patient Robb [facility] 1.2.840.114 [id number] Univers 00:00:00 00:00:00 Secure Msg Kendal Munir HEALTH 350.1.13.10 ity of [place] 4.2.7.2.686 [place] as TOÑO?BLEA [phone] Ne dicaliyah [place] [address] [place] MEDICAL OFFICE [facility] 2021-09-15 2021-09-15 Patient Robb [facility] 1.2.840.114 [id number] Univers 00:00:00 00:00:00 Secure Msg Kendal M HEALTH 350.1.13.10 ity of [place] 4.2.7.2.686 [place] as TOÑO?BLEA [phone] Ne dicaliyah [place] 044 [facility] OFFICE [facility] 2021-09-15 2021-09-15 Patient Robb [facility] 1.2.840.114 [id number] Univers 00:00:00 00:00:00 Secure Msg Kendal M HEALTH 350.1.13.10 ity [facility] 4.2.7.2.686 [place] TOÑO?BLEA [phone] [address] MEDICAL OFFICE [facility] 2021-09-14 2021-09-14 Patient Juan [facility] 1.2.840.114 [id number] Univers 00:00:00 00:00:00 Secure Msg Vijay HEALTH 350.1.13.10 ity of [facility] 4.2.7.2.686 [place] TOÑO?BLEA [phone] [address] OFFICE [facility] 2021-09-14 2021-09-14 Patient Doctor [facility] 1.2.840.114 [id number] Univers 00:00:00 00:00:00 Secure Msg Unassigned, HEALTH 350.1.13.10 ity of [place] 4.2.7.2.686 [place] as TOÑO?BLEA [phone] [address] OFFICE [facility] 2021-09-12 2021-09-12 Outpatient Farzana [facility] [id number] Univers 10:30:00 10:30:00 CELINA lechuga [facility] 2021-09-12 2021-09-12 Outpatient Farzana [facility] [id number] Univers 10:30:00 10:30:00 CELINA lechuga [facility] 2021-09-12 2021-09-12 Patient Meet [facility] 1.2.840.114 [id number] Univers 00:00:00 00:00:00 Secure Msg Daniel CRAIG 350.1.13.10 ity of [place]2.7.2.[place] [phone] [facility] AND DARRAGH [address] [facility] 2021-09-12 2021-09-12 Orders Doctor JORDAN 1.2.840.114 [id number] Univers 00:00:00 00:00:00 Only Unassigned, YAZMIN 350.1.13.10 ity of [place] [facility] 4.2.7.2.686 [place] as [phone] [facility] [address] 2021-09-12 2021-09-12 Patient Juan [facility] 1.2.840.114 [id number] Univers 00:00:00 00:00:00 Secure Msg Vijay HEALTH 350.1.13.10 ity of [place] 4.2.7.2.686 [place] as TOÑO?BLEA [phone] [address] MEDICAL OFFICE BUILDING 2021-09-05 2021-09-05 Patient Juan [facility] 1.2.840.114 [id number] Univers 00:00:00 00:00:00 Secure Msg Vijay HEALTH 350.1.13.10 ity of [place] 4.2.7.2.686 [place] as TOÑO?BLEA [phone] [address] MEDICAL OFFICE BUILDING 2021-09-05 2021-09-05 Patient Doctor JORDAN 1.2.840.114 [id number] Univers 00:00:00 00:00:00 Secure Msg Unassigned, YAZMIN 350.1.13.10 ity of [place] [facility] 4.2.7.2.686 [place] as [phone] [address] 2021-09-05 2021-09-05 Patient Doctor JORDAN 1.2.840.114 [id number] Univers 00:00:00 00:00:00 Secure Msg Unassigned, YAZMIN 350.1.13.10 ity of [place] [facility] 4.2.7.2.686 [place] as [phone] [address] 2021-09-04 2021-09-04 Patient Juan [facility] 1.2.840.114 [id number] Univers 00:00:00 00:00:00 Secure Msg Vijay HEALTH 350.1.13.10 ity of [place] 4.2.7.2.686 [place] as TOÑO?BLEA [phone] [address] MEDICAL OFFICE BUILDING 2021-08-28 2021-08-28 Patient Melvin [facility] 1.2.840.114 [id number] Univers 00:00:00 00:00:00 Secure Msg Shancy K MULTISPEC 350.1.13.10 ity of [place]2.7.2.[place] [phone] [address] [facility] 2021-08-25 2021-08-25 Telephone Aditi [facility] 1.2.840.114 [id number] Univers 00:00:00 00:00:00 Dania L HEALTH 350.1.13.10 it y of [place] 4.2.7.2.686 [place] as TOÑO?BLEA [phone] Me whit [place] [address] [place] MEDICAL OFFICE BUILDING 2021-08-25 2021-08-25 Patient Juan [facility] 1.2.840.114 [id number] Univers 00:00:00 00:00:00 Secure Msg Vijay HEALTH 350.1.13.10 ity of [place] 4.2.7.2.686 [place] TOÑO?BLEA [phone] Ne whit [place] [address] [place] MEDICAL OFFICE BUILDING 2021-08-24 2021-08-24 Telephone Juan [facility] 1.2.966.370 [id number] Univers 00:00:00 00:00:00 Vijay HEALTH 350.1.13.10 it y of [place] 4.2.7.2.686 [place] as TOÑO?BLEA [phone] Ne whit [place] [address] [place] MEDICAL OFFICE BUILDING 2021-08-24 2021-08-24 Patient Juan [facility] 1.2.840.114 [id number] Univers 00:00:00 00:00:00 Secure Msg Vijay HEALTH 350.1.13.10 ity of [place] 4.2.7.2.686 [place] as TOÑO?BLEA [phone] Ne whit [place] [address] [place] MEDICAL OFFICE BUILDING 2021-08-23 2021-08-23 Patient Juan [facility] 1.2.840.114 [id number] Univers 00:00:00 00:00:00 Secure Msg Vijay HEALTH 350.1.13.10 ity of [place] 4.2.7.2.686 [place] as TOÑO?BLEA [phone] Ne whit [place] [address] [place] MEDICAL OFFICE BUILDING 2021-08-23 2021-08-23 Telephone Juan [facility] 1.2.016.165 [id number] Univers 00:00:00 00:00:00 Vijay HEALTH 350.1.13.10 it y of [place] 4.2.7.2.686 [place] TOÑO?BLEA [phone] Ne dical KNEY 044 [facility] OFFICE [facility] 2021-08-22 2021-08-22 Telephone [facility] 1.2.646.819 [id number] Univers 00:00:00 00:00:00 Vijay HEALTH 350.1.13.10 it y of [place] 4.2.7.2.686 [place] TOÑO?BLEA [phone] Ne dical KNEY 044 [facility] OFFICE [facility] 2021-08-22 2021-08-22 Patient [facility] 1.2.840.114 [id number] Univers 00:00:00 00:00:00 Secure Msg Hallie HEALTH 350.1.13.10 ity of [place] 4.2.7.2.686 [place] as TOÑO?BLEA [phone] Ne dical KNEY [address] [place] [address] 2021-08-18 2021-08-18 Telephone [facility] 1.2.313.806 [id number] Univers 00:00:00 00:00:00 Vijay HEALTH 350.1.13.10 it y of [place] 4.2.7.2.686 [place] TOÑO?BLEA [phone] Ne dical KNEY [address] [place] [address] 2021-08-17 2021-08-17 Outpatient Farzana [facility] [id number] Univers 09:00:00 09:00:00 CELINA lechuga [facility] 2021-08-17 2021-08-17 Outpatient Farzana [facility] [id number] Univers 09:00:00 09:00:00 CELINA ity of [facility] 2021-08-17 2021-08-17 Patient Prasanna Vargas [facility] 1.2.896.492 [id number] Univers 00:00:00 00:00:00 Secure Msg Cam [place] 350.1.13.10 ity of [place].2.[place] [phone] Me dical NAL 134 [facility] 2021-08-17 2021-08-17 [facility] 1.2.840.114 [id number] Univers 00:00:00 00:00:00 Secure Msg Vijay HEALTH 350.1.13.10 ity of [place] 4.2.7.2.686 [place] as TOÑO?BLEA [phone] [address] MEDICAL OFFICE [facility] 2021-08-17 2021-08-17 Patient Juan, [facility] 1.2.840.114 [id number] Univers 00:00:00 00:00:00 Secure Msg Vijay HEALTH 350.1.13.10 ity of [place] 4.2.7.2.686 [place] as TOÑO?BLEA [phone] [address] MEDICAL OFFICE [facility] 2021-08-16 2021-08-16 Patient Juan [facility] 1.2.840.114 [id number] Univers 00:00:00 00:00:00 Secure Msg Vijay HEALTH 350.1.13.10 ity of [place] 4.2.7.2.686 [place] as TOÑO?BLEA [phone] [address] MEDICAL OFFICE [facility] 2021-08-16 2021-08-16 Patient Doctor [facility] 1.2.840.114 [id number] Univers 00:00:00 00:00:00 Secure Msg Unassigned, HEALTH 350.1.13.10 ity of [place] 4.2.7.2.686 [place] as TOÑO?BLEA [phone] [address] MEDICAL OFFICE [facility] 2021-08-16 2021-08-16 Patient Juan [facility] 1.2.840.114 [id number] Univers 00:00:00 00:00:00 Secure Msg Vijay HEALTH 350.1.13.10 ity of [place] 4.2.7.2.686 [place] as TOÑO?BLEA [phone] [address] MEDICAL OFFICE [facility] 2021-08-16 2021-08-16 Patient Juan [facility] 1.2.840.114 [id number] Univers 00:00:00 00:00:00 Secure Msg Vijay HEALTH 350.1.13.10 ity of [place] 4.2.7.2.686 [place] as TOÑO?BLEA [phone] Me whit [place] 044 [facility] OFFICE [facility] 2021-08-15 2021-08-15 Office [facility] 1.2.840.114 [id number] Univers 15:30:00 16:16:42 Visit [facility] 350.1.13.10 it y of [place] 4.2.7.2.686 [place] as TOÑO?BLEA [phone] Me whit [place] 198 [facility] 2021-08-15 2021-08-15 Outpatient [facility] [id number] Univers 15:30:00 16:16:42 [facility] 2021-08-15 2021-08-15 Outpatient Farzana [facility] [id number] Univers 15:30:00 15:30:00 [facility] 2021-08-15 2021-08-15 Outpatient Farzana [facility] [id number] Univers 15:30:00 15:30:00 [facility] 2021-08-15 2021-08-15 Outpatient Farzana [facility] [id number] Univers 15:30:00 15:30:00 [facility] 2021-08-15 2021-08-15 Emergency Aj [facility] E[facility] [id number] Univers 09:27:00 12:26:00 [facility] 2021-08-15 2021-08-15 [facility] 1.2.730.612 [id number] Univers 09:27:00 12:26:00 Maura LAWSON 350.1.13.10 ity of [place] 4.2.7.2.686 [place] [facility] [phone] [address] 2021-08-15 2021-08-15 Emergency X [facility] E[facility] [id number] Univers 09:27:00 12:26:00 MAURA [facility] 2021-08-15 2021-08-15 Patient Doctor JORDAN 1.2.840.114 [id number] Univers 00:00:00 00:00:00 Secure Msg Unassigned, YAZMIN 350.1.13.10 ity of [place] [facility] 4.2.7.2.686 [place] as [phone] [address] 2021-08-14 2021-08-14 Outpatient R [facility] [id number] Univers 13:25:00 23:59:00 VIJAY lechuga [facility] 2021-08-14 2021-08-14 Outpatient R [facility] [id number] Univers 13:25:00 23:59:00 VIJAY lechuga [facility] 2021-08-14 2021-08-14 Outpatient R [facility] [id number] Univers 13:25:00 13:25:00 VIJAY lechuga [facility] 2021-08-14 2021-08-14 Outpatient R [facility] [id number] Univers 12:19:07 13:24:00 VIJAY lechuga [facility] 2021-08-14 2021-08-14 Outpatient R [facility] [id number] Univers 12:19:07 13:24:00 VIJAY lechuga [facility] 2021-08-14 2021-08-14 Auditor In Charge Lab, Ang - Db [facility] 1.2.840.1 14 [id number] Univers 12:30:00 13:01:24 Visit Vijay Martinez 350.1.13.10 ity of [place] 4.2.7.2.686 [place] as TOÑO?BLEA [phone] [address] OFFICE [facility] 2021-08-14 2021-08-14 Auditor In Charge Lab, Ang - Db [facility] 1.2.840.1 14 [id number] Univers 12:30:00 12:45:00 Visit Vijay Martinez 350.1.13.10 ity of [place] 4.2.7.2.686 [place] as TOÑO?BLEA [phone] [address] OFFICE BUILDING 2021-08-14 2021-08-14 Office Juan [facility] 1.2.840.114 [id number] Univers 11:30:00 12:31:12 Visit Vijay PETTY 350.1.13.10 it y of [place] 4.2.7.2.686 [place] as TOÑO?BLEA [phone] Ne whit [address] MEDICAL OFFICE [facility] 2021-08-14 2021-08-14 Outpatient R [facility] [id number] Univers 11:30:00 12:31:12 VIJAY lechuga [facility] 2021-08-14 2021-08-14 [facility] 1.2.840.114 [id number] Univers 00:00:00 00:00:00 Secure Msg Vijay HEALTH 350.1.13.10 ity of [facility] 4.2.7.2.686 [place] as TOÑO?BLEA [phone] Ne whit [address] MEDICAL OFFICE [facility] 2021-08-14 2021-08-14 Patient [facility] 1.2.840.114 [id number] Univers 00:00:00 00:00:00 Secure Msg Vijay HEALTH 350.1.13.10 ity of [place] 4.2.7.2.686 [place] as TOÑO?BLEA [phone] Ne alessandra[address] MEDICAL OFFICE [facility] 2021-08-09 2021-08-09 Outpatient R [facility] [id number] Univers 14:45:00 14:45:00 ADÁN chino [facility] 2021-08-09 2021-08-09 Telephone [facility] 1.2.353.052 [id number] Univers 00:00:00 00:00:00 Vijay HEALTH 350.1.13.10 it y of [facility] 4.2.7.2.686 [place] as TOÑO?BLEA [phone] [address] MEDICAL OFFICE [facility] 2021-08-08 2021-08-08 Outpatient R [facility] [id number] Univers 11:30:00 23:59:00 VIJAY chino [facility] 2021-08-08 2021-08-08 Hospital [facility] 1.2.840.114 [id number] Univers 11:30:00 23:59:00 Encounter Vijay HEALTH 350.1.13.10 ity of [facility] 4.2.7.2.686 [place] as TOÑO?BLEA [id number] Ne whit [place] 808 [facility] OFFICE [facility] 2021-08-08 2021-08-08 Outpatient R [facility] [id number] Univers 11:15:00 11:15:00 VIJAY lechuga [facility] 2021-08-08 2021-08-08 Outpatient R [facility] [id number] Univers 11:00:00 11:00:00 VIJAY lechuga [facility] 2021-08-08 2021-08-08 Patient Doctor JORDAN 1.2.840.114 [id number] Univers 00:00:00 00:00:00 Secure Msg Unassigned, YAZMIN 350.1.13.10 ity of [facility] 4.2.7.2.686 [place] as [phone] [address] 2021-08-07 2021-08-07 Office [facility] 1.2.840.114 [id number] Univers 09:30:00 10:23:21 Visit Vijay [employer] 350.1.13.10 it y of [place] 4.2.7.2.686 [place] as TOÑO?BLEA [phone] Ne whit MARY [address] [place] [address] OFFICE [facility] 2021-08-07 2021-08-07 Outpatient R [facility] [id number] Univers 09:30:00 10:23:21 VIJAY lechuga [facility] 2021-08-07 2021-08-07 Outpatient R [facility] [id number] Univers 09:30:00 09:30:00 VIJAY lechuga [facility] 2021-08-07 2021-08-07 Patient [facility] 1.2.840.114 [id number] Univers 00:00:00 00:00:00 Secure Msg Vijay HEALTH 350.1.13.10 ity of [place] 4.2.7.2.686 [place] as TOÑO?BLEA [phone] Ne whit [place] [address] [place] [address] MEDICAL OFFICE [facility] 2021-08-07 2021-08-07 Patient [facility] 1.2.840.114 [id number] Univers 00:00:00 00:00:00 Secure Msg Vijay HEALTH 350.1.13.10 ity of [place] 4.2.7.2.686 [place] as TOÑO?BLEA [phone] Ne whit [address] MEDICAL OFFICE BUILDING 2021-08-07 2021-08-07 Patient Apurva [facility] 1.2.840.114 [id number] Univers 00:00:00 00:00:00 Secure Msg Celina A FLACO 350.1.13.10 ity of [facility] 4.2.7.2.686 [place] [id number] [address] 2021-08-04 2021-08-04 Outpatient R [facility] [id number] Univers 10:00:00 10:00:00 PETRA ity [facility] 2021-08-04 2021-08-04 Patient [facility] 1.2.840.114 [id number] Univers 00:00:00 00:00:00 Secure Mslaila Penaloza HEALTH 350.1.13.10 ity of [place] 4.2.7.2.686 [place] as TOÑO?BLEA [phone] [address] MEDICAL OFFICE [facility] 2021-08-03 2021-08-03 Office SOURAV Diaz 1.2.840.114 [id number] Univers 11:00:00 12:48:43 Visit Jayy Y 350.1.13.10 it y of [facility] 4.2.7.2.686 [place] as BANK [phone] [address] 2021-08-03 2021-08-03 Outpatient R [facility] [id number] Univers 11:00:00 12:48:43 JAYY ity [facility] 2021-08-03 2021-08-03 Outpatient R [facility] [id number] Univers 11:00:00 11:00:00 JAYY ankush [facility] 2021-08-03 2021-08-03 Patient [facility] 1.2.840.114 [id number] Univers 00:00:00 00:00:00 Secure Msg Celina A FLACO 350.1.13.10 ity of [facility] 4.2.7.2.686 [place] [phone] [address] 2021-08-02 2021-08-02 Telephone [facility] 1.2.683.147 [id number] Univers 00:00:00 00:00:00 Vijay HEALTH 350.1.13.10 it y of [facility] 4.2.7.2.686 [place] TOÑO?BLEA [phone] [address] OFFICE [facility] 2021-07-21 2021-07-21 Outpatient R DARRION [facility] [id number] Univers 08:00:00 08:52:53 DARRION WYATT [facility] 2021-07-17 2021-07-17 Outpatient R [facility] [id number] Univers 11:30:00 11:30:00 [facility] 2021-07-17 2021-07-17 Patient [facility] 1.2.840.114 [id number] Univers 00:00:00 00:00:00 Secure Msg Vijay [employer] 350.1.13.10 ity of [place] 4.2.7.2.686 [place] as TOÑO?BLEA [phone] [address] 2021-06-19 2021-06-19 Telephone [facility] 1.2.448.655 [id number] Univers 00:00:00 00:00:00 Vijay HEALTH 350.1.13.10 it y of [place] 4.2.7.2.686 [place] as TOÑO?BLEA [phone] [address] OFFICE [facility] 2021-06-09 2021-06-09 Telephone [facility] 1.2.708.022 [id number] Univers 00:00:00 00:00:00 Reji [facility] 350.1.13.10 ity of [place].2.[place].2.[place] [phone] [facility] 059 [facility] 2021-06-06 2021-06-06 Outpatient R [facility] [id number] Univers 11:15:00 11:15:00 TETO lechuga [facility] 2021-06-06 2021-06-06 Outpatient R [facility] [id number] Univers 11:15:00 11:15:00 TETO lechuga [facility] 2021-06-02 2021-06-02 Outpatient R [facility] [id number] Univers 15:45:00 15:45:00 WONDIFUL ity o f [facility] 2021-05-31 2021-05-31 Outpatient R [facility] [id number] Univers 10:00:00 10:46:31 VIJAY lechuga [facility] 2021-05-31 2021-05-31 [facility] 1.2.840.114 [id number] Univers 10:00:00 10:46:31 Visit Vijay HEALTH 350.1.13.10 it y of [place] 4.2.7.2.686 Martin as TOÑO?BLEA [phone] [address] MEDICAL OFFICE [facility] 2021-05-31 2021-05-31 Outpatient R [facility] [id number] Univers 10:00:00 10:46:31 VIJAY lechuga [facility] 2021-05-31 2021-05-31 Orders Doctor JORDAN [id number] [id number] Univers 00:00:00 00:00:00 Only Unassigned, YAZMIN 350.1.13.10 ity of [place] [facility] 4.2.7.2.686 [place] as [phone] [address] 2021-05-26 2021-05-26 [facility]phone [facility] [id number] Univers 00:00:00 00:00:00 Skylar A HEALTH 350.1.13.10 i ty of [place] 4.2.7.2.686 Martin as TOÑO?BLEA [phone] [address] MEDICAL OFFICE [facility] 2021-05-26 2021-05-26 Patient Prasanna Vargas [facility] [id number] Univers 00:00:00 00:00:00 Secure Msg Cam [place] 350.1.13.10 ity of [place] 4[place]2.7.2.686 [place] PROF[place] [phone] Ne dicaliyah NAL [address] [facility] 2021-05-25 2021-05-25 Telemedici [facility] 1.2.840.114 [id number] Univers 14:00:00 14:30:00 ne Visit Skylar A [facility]ALTH 350.1.13.10 ity of [place] 4.2.7.2.686 Martin as TOÑO?BLEA [phone] [facility] IV[address] 2021-05-25 2021-05-25 [facility] [id number] Univers 14:00:00 14:00:00 [facility] 2021-05-25 2021-05-25 [facility] [id number] Univers 14:00:00 14:00:00 [facility] 2021-05-25 2021-05-25 [facility] 1.2.840.114 [id number] Univers 00:00:00 00:00:00 Secure Msg Skylar [facility] 350.1.13.10 ity of [place] 4.2.7.2.686 [place] as TOÑO?BLEA [id number] [address] 2021-05-25 2021-05-25 [facility] 1.2.840.114 [id number] Univers 00:00:00 00:00:00 Secure Msg Skylar [facility] 350.1.13.10 ity of [place] 4.2.7.2.686 [place] as TOÑO?BLEA [id number] [address] [address] 2021-05-24 2021-05-24 Telephone Ponce [facility] 1.2.563.389 [id number] Univers 00:00:00 00:00:00 Sendzohra Cuello [place] 350.1.13.10 ity of [place] 4.2.7.2.[place] [phone] [facility] 059 [facility] 2021-05-24 2021-05-24 Patient Serra, [facility] 1.2.840.114 [id number] Univers 00:00:00 00:00:00 Secure Msg Sendil K.H. [place] 350.1.13.10 ity of [facility] 4.2.7.2.[place] [phone] Ne whit TORRES 059 [facility] 2021-05-24 2021-05-24 [facility] 1.2.840.114 [id number] Univers 00:00:00 00:00:00 Secure Msg Wondiful A HEALTH 350.1.13.10 ity of [place] 4.2.7.2.686 Martin as TOÑO?BLEA [phone] [address] OFFICE [facility] 2021-05-23 2021-05-23 Outpatient [facility] [id number] Univers 10:00:00 10:00:00 ity [facility] 2021-05-23 2021-05-23 Outpatient [facility] [id number] Univers 10:00:00 10:00:00 ity of [facility] 2021-05-23 2021-05-23 Patient [facility] 1.2.840.114 [id number] Univers 00:00:00 00:00:00 Secure Msg Wondiful A HEALTH 350.1.13.10 ity of [place] 4.2.7.2.686 [place] as TOÑO?BLEA [phone] [address] OFFICE [facility] 2021-05-16 2021-05-16 Outpatient [facility] [id number] Univers 09:00:00 09:00:00 TETO ity [facility] 2021-05-12 2021-05-12 Orders Doctor JORDAN 1.2.840.114 [id number] Univers 00:00:00 00:00:00 Only Unassigned, YAZMIN 350.1.13.10 ity of [place] [facility] 4.2.7.2.686 Martin as [phone] [address] 2021-05-10 2021-05-10 Outpatient R [facility] [id number] Univers 13:00:00 13:00:00 WONDIFUL ity o f [facility] 2021-05-10 2021-05-10 Outpatient R [facility] [id number] Univers 13:00:00 13:00:00 WONDIFUL ity o f [facility] 2021-05-09 2021-05-09 Telephone Prasanna Vargas [facility] 1.2.840.114 [id number] Univers 00:00:00 00:00:00 Cam LUL[place] 350.1.13.10 i ty of [facility] 4.2.7.2.[place] [phone] Ne dicky NAL 134 [facility] 2021-05-09 2021-05-09 Patient [facility] 1.2.840.114 [id number] Univers 00:00:00 00:00:00 Secure Msg Sendil K.H. [place] 350.1.13.10 ity of [facility] 4.2.7.2.[place] [phone] Ne dicky NAL 9 [facility] 2021-05-08 2021-05-08 Outpatient R [facility] [id number] Univers 16:00:00 16:00:00 JEDAYANA lechuga [facility] 2021-05-08 2021-05-08 Outpatient R [facility] [id number] Univers 16:00:00 16:00:00 JEDAYANA lechuga [facility] 2021-05-08 2021-05-08 [facility] 1.2.840.114 [id number] Univers 00:00:00 00:00:00 Secure Msg Sendil K.H. [place] 350.1.13.10 ity of [facility] 4.2.7.2.[place] [phone] Ne dical NAL 059 [facility] 2021-05-08 2021-05-08 Patient [facility] 1.2.840.114 [id number] Univers 00:00:00 00:00:00 Secure Msg Sendil K.H. [place] 350.1.13.10 ity of [place] 4.2.7.2.686 [place] [phone] Ne dical NAL 059 [facility] 2021-05-04 2021-05-04 Patient Serra, [facility] 1.2.840.114 [id number] Univers 00:00:00 00:00:00 Secure Msg Rad Benoit.H. [place] 350.1.13.10 ity of [place] 4.2.7.2.686 [place] [phone] Ne dical NAL 059 [facility] 2021-05-04 2021-05-04 Patient [facility] 1.2.840.114 [id number] Univers 00:00:00 00:00:00 Secure Msg Reji LAWSON 350.1.13.10 ity of [place] 4.2.7.2.686 [place] [phone] Ne dicky NAL 9 [facility] 2021-05-03 2021-05-03 Outpatient [facility] [id number] Univers 11:15:36 23:59:00 REJI maradiagay o f [facility] 2021-05-03 2021-05-03 [facility] 1.2.840.114 [id number] Univers 11:15:36 23:59:00 Encounter Reji [place] 350.1.13.10 ity of [place] 4.2.7.2.[place] [phone] [facility] 846 [facility] 2021-05-03 2021-05-03 Telephone [facility] 1.2.840.114 [id number] Univers 00:00:00 00:00:00 Wondiful A HEALTH 350.1.13.10 ity of [place] 4.2.7.2.686 [place] as TOÑO?BLEA [phone] Ne dicaliyah KNEY 044 [facility] 2021-05-02 2021-05-02 [facility]phone [facility] 1.2.715.075 [id number] Univers 00:00:00 00:00:00 Sendzohra K.H. [place] 350.1.13.10 ity of [place] 4.2.7.2.686 [place] [phone] Ne dical NAL 9 [facility] 2021-05-02 2021-05-02 Patient Cristina [facility] 1.2.840.114 [id number] Univers 00:00:00 00:00:00 Secure Msg Wondiful A HEALTH 350.1.13.10 ity of [place] 4.2.7.2.686 [place] as TOÑO?BLEA [phone] [address] OFFICE [facility] 2021-05-02 2021-05-02 Telephone Cristina [facility] 1.2.840.114 [id number] Univers 00:00:00 00:00:00 Wondiful A HEALTH 350.1.13.10 ity of [place] 4.2.7.2.686 [place] as TOÑO?BLEA [phone] [address] 2021-05-02 2021-05-02 [facility] 1.2.840.114 [id number] Univers 00:00:00 00:00:00 Secure Msg Sendil K.H. [place] 350.1.13.10 ity of [place] 4.2.7.2.[place] [phone] [address] 2021-05-02 2021-05-02 Patient Cristina [facility] 1.2.840.114 [id number] Univers 00:00:00 00:00:00 Secure Msg Wondiful A HEALTH 350.1.13.10 ity of [place] 4.2.7.2.686 [place] as TOÑO?BLEA [phone] [address] 2021-04-28 2021-04-28 Patient [facility] 1.2.840.114 [id number] Univers 00:00:00 00:00:00 Secure Msg Wondiful A HEALTH 350.1.13.10 ity of [place] 4.2.7.2.686 [place] as TOÑO?BLEA [phone] [address] 2021-04-27 2021-04-27 Emergency X [facility] ERT [id number] Univers 14:24:00 15:49:00 MAGGIE ity of [facility] 2021-04-27 2021-04-27 Emergency Alfonso, [facility] 1.2.840.114 [id number] Univers 14:24:00 15:49:00 Maggie LAWSON 350.1.13.10 ity of [place] 4.2.7.2.686 [place] [phone] [facility] 0[address] [place] 2021-04-27 2021-04-27 Laboratory Only, Ang Db Test [facility] 1.2.8 40.114 [id number] Univers 11:15:00 11:30:00 Only Unknown, Attending HEALTH 350.1.13.10 ity of [place] 4.2.7.2.686 [place] TOÑO?BLEA [phone] [facility] [address] [place] MEDICAL OFFICE BUILDING 2021-04-27 2021-04-27 Outpatient R SIL [facility] [id number] Univers 11:15:00 11:15:00 [facility] 2021-04-27 2021-04-27 Orders Doctor JORDAN 1.2.840.114 [id number] Univers 00:00:00 00:00:00 Only Unassigned, YAZMIN 350.1.13.10 it[facility] 4.2.7.2.686 [place] as [phone] [facility] [address] [place] 2021-04-20 2021-04-20 Outpatient R JUSTINE [facility] [id number] Univers 15:00:00 15:00:00 EDER ity of [facility] 2021-04-13 2021-04-13 Patient Cristina [facility] 1.2.840.114 [id number] Univers 00:00:00 00:00:00 Secure Msg Wondiful A HEALTH 350.1.13.10 ity of [place] 4.2.7.2.686 [place] as TOÑO?BLEA [phone] [facility] 044 [place] MEDICAL OFFICE BUILDING 2021-04-12 2021-04-12 Telephone Cristina [facility] 1.2.840.114 [id number] Univers 00:00:00 00:00:00 Wondiful A HEALTH 350.1.13.10 ity of [place] 4.2.7.2.686 Martin as TOÑO?BLEA [phone] Ne dical KNEY 0[address] [place] MEDICAL OFFICE BUILDING 2021-03-27 2021-03-27 Telephone Prasanna Vargas [facility] 1.2.840.114 [id number] Univers 00:00:00 00:00:00 Cam [facility] 350.1.13.10 i ty of [place] 4.2.7.2.686 [place] [phone] Ne dical NAL [address] BUILDING 2021-03-24 2021-03-24 Patient Doctor JORADN 1..840.114 [id number] Univers 00:00:00 00:00:00 Secure Msg Unassigned, YAZMIN 350.1.13.10 it[facility] 4.2.7.2.686 [place] as [phone] [address] 2021-03-23 2021-03-23 Outpatient R KAV[facility] [id number] Univers 13:30:00 13:30:00 CHILVANA ity o f [facility] 2021-03-23 2021-03-23 Outpatient R K[facility] [id number] Univers 13:30:00 13:30:00 CHILVANA ity o f [facility] 2021-03-22 2021-03-22 Outpatient R ADITYA [facility] [id number] Univers 09:20:00 09:20:00 NEHEMIAH MEEKSRIL ity [facility] 2021-03-22 2021-03-22 Outpatient R NEHEMIAH [facility] [id number] Univers 09:20:00 09:20:00 NEHEMIAH MEEKSRIL ity [facility] 2021-03-20 2021-03-20 Outpatient R CRISTINA [facility] [id number] Univers 00:00:00 00:00:00 WONDIFUL ity o f [facility] 2021-03-18 2021-03-18 Donaldo [facility] 1.2.840.114 [id number] Univers 00:00:00 00:00:00 Management Wondiful A HE[facility] 350.1.13.10 ity of [place] 4.2.7.2.686 Martin as TOÑO?BLEA [phone] Ne whit [place] [address] [place] MEDICAL OFFICE [facility] 2021-03-16 2021-03-16 Auditor In Charge Lab, Ang - Db [facility] 1.2.840.1 14 [id number] Univers 11:16:07 11:31:07 Visit Claudette Evans [facility] 350.1.13.1 0 ity of [place] 4.2.7.2.686 [place] as TOÑO?BLEA [phone] Ne whit [place] 353 [facility] OFFICE [facility] 2021-03-16 2021-03-16 Outpatient R [facility] [id number] Univers 11:30:00 11:30:00 WONDIFUL ity o f [facility] 2021-03-16 2021-03-16 Outpatient R [facility] [id number] Univers 11:00:00 11:14:45 WONDIFUL ity o f [facility] 2021-03-16 2021-03-16 Office [facility] 1.2.840.114 [id number] Univers 10:00:58 11:14:45 Visit Wonkacey A HEALTH 350.1.13.10 ity of [place] 4.2.7.2.686 Martin as TOÑO?BLEA [phone] [address] OFFICE [facility] 2021-03-16 2021-03-16 Patient [facility] 1.2.840.114 [id number] Univers 00:00:00 00:00:00 Secure Msg Wondiful A HEALTH 350.1.13.10 ity of [place] 4.2.7.2.686 [place] as TOÑO?BLEA [phone] [facility] [address] MEDICAL OFFICE [facility] 2021-03-02 2021-03-02 Outpatient R CRISTINA [facility] [id number] Univers 16:15:00 16:15:00 WONDIFUL ity o f [facility] 2021-02-28 2021-02-28 Outpatient R [facility] [id number] Univers 18:30:00 18:30:00 ILEANA lechuga [facility] 2021-02-28 2021-02-28 Telephone [facility] 1.2.840.114 [id number] Univers 00:00:00 00:00:00 Wondiful A Health 350.1.13.10 ity of [place] 4.2.7.2.686 Martin as Toño?Blea [phone] [address] 2021-02-27 2021-02-27 Outpatient R [facility] [id number] Univers 09:00:00 09:00:00 AMELIA lechuga [facility] 2021-02-23 2021-02-23 Telephone [facility] 1.2.840.114 [id number] Univers 00:00:00 00:00:00 Wondiful A Health 350.1.13.10 ity of [place] 4.2.7.2.686 Martin as Toño?Blea [phone] [address] 2021-02-10 2021-02-10 Emergency Dev, Kaycee [facility] 1.2.840.114 [id number] Univers 18:12:00 23:39:00 Sharlene [place] 350.1.13.10 i ty of [place] 4.2.7.2.686 [place] [phone] [facility] [address] [place] 2021-02-10 2021-02-10 Patient [facility] 1.2.840.114 [id number] Univers 00:00:00 00:00:00 Secure Msg Wondiful [facility] HE[facility] 350.1.13.10 ity [facility] 4.2.7.2.686 [place] as TOÑO?BLEA [phone] [address] 2021-02-10 2021-02-10 Patient [facility] 1.2.840.114 [id number] Univers 00:00:00 00:00:00 Secure Msg Wondiful A HEALTH 350.1.13.10 ity of [place] 4.2.7.2.686 Martin as TOÑO?BLEA [phone] [address] MEDICAL OFFICE BUILDING 2021-02-10 2021-02-10 Patient [facility] 1.2.840.114 [id number] Univers 00:00:00 00:00:00 Secure Msg Wondiful A HEALTH 350.1.13.10 ity of [place] 4.2.7.2.686 [place] as TOÑO?BLEA [phone] Ne whit [place] [address] [place] MEDICAL OFFICE [facility] 2021-02-10 2021-02-10 Patient [facility] 1.2.840.114 [id number] Univers 00:00:00 00:00:00 Secure Msg Wondiful A HEALTH 350.1.13.10 ity of [place] 4.2.7.2.686 Martin as TOÑO?BLEA [phone] Ne whit [place] [address] [place] MEDICAL OFFICE [facility] 2021-02-09 2021-02-09 Hospital [facility] 1.2.662.415 [id number] Univers 13:40:00 23:59:00 Encounter Wondiful A Health 350.1.13.10 ity of [place] 4.2.7.2.686 Martin as Toño?Blea [phone] Ne whit [place] 809 [facility] Office [facility] 2021-02-09 2021-02-09 Auditor In Charge Lab, Ang - [facility] 1.2.840.1 14 [id number] Univers 13:49:05 14:04:05 Visit Claudette [facility] 350.1.13.1 0 ity of [place] 4.2.7.2.686 Martin as Toño?Blea [phone] Ne whit [place] [address] [place] Medical Office Building 2021-02-09 2021-02-09 Office [facility] 1.2.840.114 [id number] Univers 12:23:13 13:47:12 Visit Wonlgful A Health 350.1.13.10 ity of [place] 4.2.7.2.686 Martin as Toño?Blea [phone] Ne whit [place] 044 [facility] Office [facility] 2021-02-09 2021-02-09 Outpatient R [facility] [id number] Univers 13:00:00 13:00:00 WONDIFUL ity o f [facility] 2021-02-09 2021-02-09 Patient Doctor ORTEGA 1.2.840.114 [id number] Univers 00:00:00 00:00:00 Secure Msg Unassigned, YAZMIN 350.1.13.10 ity [facility] 4.2.7.2.686 [place] as [phone] [address] 2021-02-08 2021-02-08 Outpatient R ADITYA [facility] [id number] Univers 10:20:00 10:20:00 JEANNA [facility] itchino [facility] 2021-02-07 2021-02-07 Patient [facility] 1.2.840.114 [id number] Univers 00:00:00 00:00:00 Secure Msg Wondiful A HEALTH 350.1.13.10 ity of [place] 4.2.7.2.686 Martin as TOÑO?BLEA [phone] [address] MEDICAL OFFICE [facility] 2021-02-02 2021-02-02 Outpatient [facility] [id number] Univers 10:30:00 10:30:00 SKYLAR lechuga [facility] 2021-02-02 2021-02-02 Telephone [facility] 1.2.840.114 [id number] Univers 00:00:00 00:00:00 Wondiful A Health 350.1.13.10 ity of [place] 4.2.7.2.686 Martin as Toño?Blea [phone] [address] Medical Office [facility] 2021-02-01 2021-02-01 Outpatient [facility] [id number] Univers 08:30:00 08:30:00 SKYLARLEE lechuga [facility] 2021-01-31 2021-01-31 Urgent [facility] 1.2.840.114 [id number] Univers 18:44:04 19:41:26 Care [facility] 350.1.13.10 i ty of [place] 4.2.7.2.686 Martin as Toño?Blea [phone] Ne whit [place] [address] [place] Medical Office [facility] 2021-01-31 2021-01-31 Outpatient R [facility] [id number] Univers 19:00:00 19:00:00 FLACO lechuga o f [facility] 2021-01-31 2021-01-31 Telephone Cristina [facility] 1.2.840.114 [id number] Univers 00:00:00 00:00:00 Wondiful A Health 350.1.13.10 ity of [place] 4.2.7.2.686 Martin as Toño?Blea [phone] Ne dicaliyah [place] 044 [facility] Office [facility] 2021-01-31 2021-01-31 Patient Cristina [facility] 1.2.840.114 [id number] Univers 00:00:00 00:00:00 Secure Msg Wondiful A HEALTH 350.1.13.10 ity of [place] 4.2.7.2.686 Martin as TOÑO?BLEA [phone] [facility] [place] 044 [facility] OFFICE [facility] 2021-01-30 2021-01-30 Telephone [facility] 1.2.185.923 [id number] Univers 00:00:00 00:00:00 Sendil Cuate [place] 350.1.13.10 ity of [place] 4.2.7.2.686 [place] [phone] Ne whit torres 059 [facility] 2021-01-30 2021-01-30 Patient Hornsby [facility] 1.2.840.114 [id number] Univers 00:00:00 00:00:00 Secure Msg Wondiful A HEALTH 350.1.13.10 ity of [place] 4.2.7.2.686 Martin as PROFESSIO [phone] [address] OFFICE [facility] ONE 2021-01-26 2021-01-26 Outpatient R PONCE [facility] [id number] Univers 14:00:00 14:00:00 SENDIL itchino of [facility] 2021-01-26 2021-01-26 Patient Yaneli [facility] 1.2.840.114 [id number] Univers 00:00:00 00:00:00 Secure Msg Skylar A HEALTH 350.1.13.10 ity of [place] 4.2.7.2.686 Martin as TOÑO?BLEA [phone] [address] OFFICE [facility] 2021-01-25 2021-01-25 Outpatient R [facility] [id number] Univers 15:00:00 15:00:00 ity of [facility] 2021-01-21 2021-01-21 Patient [facility] 1.2.840.114 [id number] Univers 00:00:00 00:00:00 Secure Msg Skylar [facility] 350.1.13.10 ity of [place] 4.2.7.2.686 [place] as TOÑO?BLEA [phone] [address] 2021-01-20 2021-01-20 [facility] 1.2.840.114 [id number] Univers 16:51:22 17:12:41 ne Visit Skylar [facility] 350.1.13.10 ity of [place] 4.2.7.2.686 Martin as Toño?Blea [phone] [address] 2021-01-20 2021-01-20 Outpatient [facility] [id number] Univers 16:30:00 16:30:00 SKYLAR [facility] 2021-01-19 2021-01-19 Outpatient R [facility] [id number] Univers 10:15:00 10:15:00 KAYLEY ity [facility] 2021-01-14 2021-01-14 JORDAN Guzman 1.2.840.114 [id number] Univers 00:00:00 00:00:00 Management Kassandra ARCE 350.1.13.10 ity [facility] 4.2.7.2.686 [place] as [phone] [address] 2021-01-14 2021-01-14 Patient Doctor JORDAN 1.2.840.114 [id number] Univers 00:00:00 00:00:00 Secure Msg Unassigned, YAZMIN 350.1.13.10 ity [facility] 4.2.7.2.686 [place] as [phone] [facility] [address] 2021-01-12 2021-01-12 Emergency [facility] 1.2.412.979 [id number] Univers 16:10:00 19:45:00 Karin Yanes Lulu 350.1.13.10 i ty of [place] 4.2.7.2.[place] [phone] [facility] [address] [place] 2021-01-12 2021-01-12 Outpatient [facility] [id number] Univers 15:20:00 15:20:00 [facility]ANA [facility] 2021-01-12 2021-01-12 Urgent Thony Johnson [facility] 1.2.840.114 [id number] Univers 14:46:57 15:06:57 [facility] 350.1.13.10 ity of [place] 4.2.7.2.686 Martin as Toño?Blea [phone] [address] Medical Office Building 2020-12-26 2020-12-26 Outpatient R [facility] [id number] Univers 15:30:00 16:13:32 SENDIL ity of [facility] 2020-12-26 2020-12-26 Office [facility] 1.2.840.114 [id number] Univers 15:30:00 16:13:32 Visit Rad LAWSON 350.1.13.10 ity of [place] 4.2.7.2.686 [place] [phone] Ne dicky NAL [address] [facility] 2020-12-26 2020-12-26 Office [facility] 1.2.840.114 [id number] Univers 15:00:32 16:13:32 Visit Rad Lawson 350.1.13.10 ity of [place] 4.2.7.2.686 [place] [phone] Ne dicky nal [address] [facility] 2020-12-26 2020-12-26 Outpatient [facility] [id number] Univers 15:30:00 15:30:00 SENDIL itchino [facility] 2020-11-29 2020-11-29 Patient Ponce [facility] 1.2.840.114 [id number] Univers 00:00:00 00:00:00 Secure Msg Sendil Cuate [place] 350.1.13.10 [facility] 4.2.7.2.686 [facility] [phone] Ne dical NAL [address] BUILDING 2020-11-22 2020-11-22 Outpatient R [facility] [id number] Univers 11:00:00 11:00:00 CELINA ankush [facility] 2020-11-10 2020-11-10 Urgent Alissa Collins [facility] 1.2.840.114 [id number] 18:42:46 19:53:43 [facility] 350.1.13.10 [place] 4.2.7.2.686 Professio [phone] nal 0[address] Office Building One 2020-11-10 2020-11-10 Outpatient R [facility] [id number] Univers 19:00:00 19:00:00 ity [facility] 2020-10-31 2020-10-31 Emergency Kaycee Méndez [facility] 1.2.840.114 [id number] 18:52:00 22:15:00 Sharlene Lawson 350.1.13.10 [place] 4.2.7.2.686 [place] [phone] 084 2020-10-31 2020-10-31 Outpatient R [facility] [id number] Univers 19:00:00 19:00:00 CARI lechuga o f [facility] 2020-10-31 2020-10-31 Orders Doctor ORTEGA 1.2.840.114 [id number] 00:00:00 00:00:00 Only Unassigned, YAZMIN 350.1.13.10 [place] [facility] 4.2.7.2.686 [phone] 009 2020-10-20 2020-10-20 Emergency Kaycee Méndez [facility] 1.2.840.114 [id number] 14:02:00 17:13:00 Sharlene [place] 350.1.13.10 [place] 4.2.7.2.686 [place] [id number] 2020-10-18 2020-10-18 Patient Prasanna Vargas [facility] [id number] Univers 00:00:00 00:00:00 Secure Msg Cam [place] [id number] [facility] 4[place] [id number] [address] 2020-10-14 2020-10-14 Hospital Prasanna Vargas [facility] 1.2.840.114 [id number] 10:00:00 23:59:00 Encounter Cam [place] 350.1.13.10 [place] 4.2.7.2.686 [place] [id number] 2020-10-14 2020-10-14 Outpatient Farzana [facility] [id number] Univers 13:30:00 13:30:00 CELINA lechuga [facility] 2020-10-11 2020-10-11 Patient Prasanna Vargas [facility] [id number] [id number] Univers 00:00:00 00:00:00 Secure Msg Cam [place] 350.1.13.10 ity of [place] [id number] [address] 2020-10-11 2020-10-11 Patient Prasanna Vargas [facility] 1.2.330.076 [id number] Univers 00:00:00 00:00:00 Secure Msg Cam [place] 350.1.13.10 [facility] 4[place] [id number] [address] 2020-10-09 2020-10-09 Emergency [facility] 1.2.927.085 [id number] 12:00:00 15:57:00 Anna Ricketts [place] 350.1.13.10 [place] 4.2.7.2.686 [place] [id number] 2020-10-07 2020-10-07 Patient Prasanna Vargas [facility] 1.2.685.154 [id number] Univers 00:00:00 00:00:00 Secure Msg Cam [place] 350.1.13.10 ity of [place] [id number] Ne dical NAL [address] [place] [address] 2020-10-07 2020-10-07 Patient Prasanna Vargas [facility] 1.2.497.878 [id number] Univers 00:00:00 00:00:00 Secure Msg Cam [place] 350.1.13.10 ity [place] 4[place]2.[place] [id number] Ne dical N[place] [address] [place] [address] 2020-10-07 2020-10-07 Patient Prasanna Vargas [facility] 1.2.528.275 [id number] Univers 00:00:00 00:00:00 Secure Msg Cam [place] 350.1.13.10 [place] [phone] Ne dical NAL [address] [place] [address] 2020-10-07 2020-10-07 Patient Prasanna [facility] 1.2.677.426 [id number] Univers 00:00:00 00:00:00 Secure Msg Cam [place] 350.1.13.10 [place] [phone] Ne dical NAL [address] [place] [address] 2020-10-07 2020-10-07 Patient Prasanna [facility] 1.2.463.475 [id number] Univers 00:00:00 00:00:00 Secure Msg Cam [place] 350.1.13.10 [place] [phone] Ne dical NAL [address] [place] [address] 2020-10-07 2020-10-07 Patient Prasanna Vargas [facility] 1.2.071.291 [id number] Univers 00:00:00 00:00:00 Secure Msg Cam [place] 350.1.13.10 [place] [phone] Ne dical NAL [address] [place] [address] 2020-10-07 2020-10-07 Patient Prasanna Vargas [facility] 1.2.120.177 [id number] Univers 00:00:00 00:00:00 Secure Msg Cam [place] 350.1.13.10 ity of [place] [phone] Ne dic[address] 2020-10-06 2020-10-06 Office Prasanna Vargas [facility] 1.2.498.081 [id number] 08:53:00 09:46:44 Visit Cam [place] 350.1.13.10 [place] 4.2.7.2.686 Professio [phone] [address] 2020-10-06 2020-10-06 Outpatient R ALICIA [facility] [id number] Univers 09:30:00 09:[facility]:00 [facility]-10-04 2020-10-04 Outpatient R [facility] [id number] Univers 14:00:00 14:00:00 CELINA [facility] 2020-09-30 2020-09-30 Outpatient R [facility] [id number] Univers 10:30:00 10:30:00 CELINA [facility] 2020-09-29 2020-09-29 [facility] [id number] Univers 13:45:00 13:45:00 PREET chino [facility] 2020-09-06 2020-09-06 Outpatient R ALICIA [facility] [id number] Univers 15:30:00 15:30:00 [facility] 2020-09-05 2020-09-05 Patient Prasanna Vargas [facility] 1.2.464.331 [id number] Univers 00:00:00 00:00:00 Secure Msg Cam [place] 350.1.13.10 ity [facility] [place] [phone] Ne dical [address] 2020-09-02 2020-09-02 Outpatient DARRION [facility] [id number] Univers 15:40:00 15:40:00 DARRION WYATT [facility] 2020-08-31 2020-08-31 Outpatient Farzana [facility] [id number] Univers 10:30:00 10:30:00 [facility] 2020-08-31 2020-08-31 Patient Prasanna Vargas [facility] [id number] Univers 00:00:00 00:00:00 Secure Msg [facility] 350.1.13.10 [facility] 4.2.7.2.686 Terrie dailey PROFESSIO [phone] Ne dical [address] 2020-08-18 2020-08-18 Outpatient R PRASANNA [facility] [id number] Univers 09:30:00 09:30:00 [facility] 2020-08-11 2020-08-11 Outpatient R PRASANNA [facility] [id number] Univers 13:30:00 13:30:00 [facility] 2020-08-04 2020-08-04 Outpatient R JUSTINE [facility] [id number] Univers 14:00:00 14:00:00 EDER [facility] 2020-07-28 2020-07-28 Outpatient Farzana [facility] [id number] Univers 10:30:00 10:30:00 SENDIL [facility] 2020-06-30 2020-06-30 Outpatient Farzana [facility] [id number] Univers 16:15:00 16:15:00 WONDIFUL ity o f [facility] 2020-06-17 2020-06-17 Outpatient DARRION [facility] [id number] Univers 15:00:00 15:00:00 DARRION WYATT [facility] 2020-06-16 2020-06-16 Outpatient Farzana [facility] [id number] Univers 15:30:00 15:30:00 SENDIL [facility] 2020-06-09 2020-06-09 Outpatient R NI [facility] [id number] Univers 12:30:00 12:30:00 ity [facility] 2020-06-08 2020-06-08 Outpatient R NI DISLA [facility] [id number] Univers 08:00:00 08:00:00 ity [facility] 2020-06-02 2020-06-02 Outpatient R PONCE [facility] [id number] Univers 09:00:00 09:00:00 SENDIL ity [facility] 2020-05-28 2020-05-28 Outpatient R NATASHA [facility] [id number] Univers 10:00:00 10:00:00 CARI lechuga o f [facility] 2020-05-26 2020-05-26 Patient Cristina [facility] 1.2.840.114 [id number] Univers 00:00:00 00:00:00 [facility] 350.1.13.10 ity [facility] 4.2.7.2.686 [place] PROFESSIO [phone] Ne dical NAL [address] OFFICE BUILDING ONE 2020-05-24 2020-05-24 Outpatient R NI DISLA [facility] [id number] Univers 10:00:00 10:00:00 [facility] 2020-05-24 2020-05-24 Patient Doctor [facility] 1.2.840.114 [id number] Univers 00:00:00 00:00:00 [facility] [place] 350.1.13.10 [place] [phone] Ne dical NAL [address] 2020-05-19 2020-05-19 Outpatient R OSITO [facility] [id number] Univers 16:30:00 16:30:00 ity [facility] 2020-05-17 2020-05-17 Outpatient R DARRION WYATT [facility] [id number] Univers 13:00:00 13:00:00 [facility] 2020-05-16 2020-05-16 Outpatient R CRISTINA[facility] [id number] Univers 16:00:00 16:00:00 WONDIFUL ity o f [facility] 2020-05-09 2020-05-09 Patient Cristina [facility] 1.2.840.114 [id number] Univers 00:00:00 00:00:00 Secure Msg Wondiful A [facility] 350.1.13.10 ity of [place] 4.2.7.2.686 [place] PROFESSIO [phone] Ne dical [address] OFFICE BUILDING ONE 2020-05-08 2020-05-08 Emergency X VIRGIE [facility] ERT [id number] Univers 10:24:00 13:03:00 OLAMIDE chino [facility] 2020-05-03 2020-05-03 [facility] [id number] Univers 15:00:00 15:00:00 WONDIFUL ity o f [facility] 2020-04-30 2020-05-01 Outpatient X HOFF, [facility] [place] [id number] Univers 11:14:00 15:50:00 RODRIGUEZ [facility] 2020-04-30 2020-04-30 [facility] [id number] Univers 10:20:00 10:20:00 ROSALES [facility] 2020-04-30 2020-04-30 [facility] [id number] Univers 10:15:00 10:15:00 ROSALES [facility] 2020-04-29 2020-04-29 Patient Heaven Hitchcocksir [facility] 1.2.840.114 [id number] Univers 00:00:00 00:00:00 Secure Msg Y HEALTH 350.1.13.10 ity of [facility] [place] [phone] [address] 2020-04-28 2020-04-28 Outpatient R OSITO [facility] [id number] Univers 14:00:00 14:00:00 ity [facility] 2020-04-25 2020-04-25 [facility] [id number] Univers 16:15:00 16:15:00 WONDIFUL ity o f [facility] 2020-04-22 2020-04-22 Patient Justine [facility] 1.2.840.114 [id number] Univers 00:00:00 00:00:00 Secure Msg Eder LAW[place] 350.1.13.10 [facility] 4.2.7.2.686 Terrie ESCUDEROIO [phone] [address] 2020-04-18 2020-04-18 Outpatient R OSITO [facility] [id number] Univers 10:00:00 10:00:00 ity [facility] 2020-04-15 2020-04-15 Outpatient R PONCE [facility] [id number] Univers 10:30:00 10:30:00 [facility] 2020-04-12 2020-04-13 Outpatient X MARICRUZ [facility] [id number] Univers 13:38:00 16:25:00 [facility] 2020-03-17 2020-03-17 Outpatient R DEYVI [facility] [id number] Univers 16:15:00 16:15:00 [facility] 2020-03-04 2020-03-04 Refill Coretta [facility] 1.2.840.114 [id number] 00:00:00 00:00:00 MULTISPEC 350.1.13.10 IALTY 4.2.7.2.686 CENTER [id number] [facility] 2020-02-25 2020-02-25 Outpatient R OSITO [facility] [id number] Univers 16:00:00 16:00:00 [facility] 2020 Outpatient R DEYVI [facility] [id number] Univers 14:00:00 14:00:00 TETO [facility] 2020-02-08 2020-02-08 Outpatient R PRASANNA VARGAS [facility] [id number] Univers 10:30:00 10:30:00 [facility] 2020-02-05 2020-02-05 Patient Prasanna Vargas [facility] [id number] Univers 00:00:00 00:00:00 Secure Msg Cam [place] 350.1.13.10 ity of [place] [phone] Ne dical [address] 2020-02-04 2020-02-04 Outpatient R [facility]AVEN [facility] [id number] Univers 13:30:00 13:30:00 ity [facility] 2020-01-23 2020-01-23 Outpatient R [facility] [id number] Univers 10:15:00 10:15:00 ity [facility] 2020-01-21 2020-01-21 Outpatient R CORETTA OSITO [facility] [id number] Univers 13:00:00 13:00:00 ity of [facility] 2020-01-14 2020-01-14 Outpatient R CORETTA OSITO [facility] [id number] Univers 16:00:00 16:00:00 ity [facility] 2020-01-05 2020-01-05 Outpatient R PRASANNA VARGAS [facility] [id number] Univers 13:45:00 13:45:00 ity of [facility] 2020-01-05 2020-01-05 Patient VargasPrasanna [facility] [id number] Univers 00:00:00 00:00:00 Secure Msg Cam [place] 350.1.13.10 ity of [place] [phone] [address] 2019-12-03 2019-12-03 Outpatient R AKINLYNSEY, [facility] [id number] Univers 10:30:00 10:30:00 CRICKET ity o f [facility] 2019-11-27 2019-11-27 Outpatient R DEYVI [facility] [id number] Univers 11:00:00 11:00:00 TETO ity [facility] 2019-11-26 2019-11-26 Patient Doctor ORTEGA 1.2.840.114 [id number] Univers 00:00:00 00:00:00 Secure Msg Unassigned, YAZMIN 350.1.13.10 ity of [facility] 4.2.7.2.686 [place] as [phone] [address] 2019-11-25 2019-11-25 Outpatient R DEYVI, [facility] [id number] Univers 08:00:00 08:00:00 TETO [facility] 2019-11-23 2019-11-23 Patient Doctor [facility] 1.2.840.114 [id number] Univers 00:00:00 00:00:00 Secure Msg Unassigned, [place] 350.1.13.10 ity of [place] [facility] [place] [phone] Ne dical [address] 2019-11-18 2019-11-18 Outpatient R DEYVI, [facility] [id number] Univers 10:00:00 10:00:00 TETO ankush [facility] 2019-11-17 2019-11-17 Patient Doctor [facility] 1.2.840.114 [id number] Univers 00:00:00 00:00:00 Secure Msg Unassigned, [place] 350.1.13.10 ity of [place] 4[place] [phone] Ne dic[address] 2019-11-13 2019-11-13 Patient Prasanna Vargas [facility] [id number] Univers 00:00:00 00:00:00 Secure Msg Cam [place] 350.1.13.10 [place] [facility] 4.2.[place].2.[place] [phone] Ne dical [address] 2019-09-02 2019-09-02 Outpatient R BRANDON, [facility] [id number] Univers 11:00:00 11:00:00 CRICKET lechuga o f [facility] 2019-08-14 2019-08-14 Outpatient R DEYVI [facility] [id number] Univers 10:15:00 10:15:00 TETO lechuga [facility] 2019-08-13 2019-08-13 Outpatient R BRANDON, [facility] [id number] Univers 11:00:00 11:00:00 CRICKET ity o f [facility] 2019-08-12 2019-08-12 Outpatient R [facility] [id number] Univers 09:00:00 09:00:00 [facility] 2019-07-20 2019-07-20 Outpatient P PRASANNA VARGAS [facility] CHRIS [id number] Univers 16:06:00 16:06:00 ity of [facility] 2019-07-20 2019-07-20 Outpatient R AKINSIPE, [facility] [id number] Univers 08:15:00 08:15:00 CRICKET ity o f [facility] 2019-07-13 2019-07-13 Outpatient R AKINSIPE, [facility] [id number] Univers 08:00:00 08:00:00 CRICKET ity o f [facility] 2019-07-12 2019-07-12 Outpatient P PRASANNA VARGAS [facility] CHRIS [id number] Univers 13:39:00 13:39:00 [facility] 2019-07-06 2019-07-06 Outpatient R AKINSIPE, [facility] [id number] Univers 13:00:00 13:00:00 CRICKET ity o f [facility] 2019-06-13 2019-06-13 Emergency X YARIMA, [facility] ERT [id number] Univers 10:40:46 12:35:00 WAKILI [facility] 2019-05-13 2019-05-14 Outpatient P PRASANNA VARGAS [facility] CHR[place] [id number] Univers 23:07:00 09:15:00 [facility] Results Test Description Test Time Test Comments [...] 34.0 g/dL 31.6-35.1 RDW-SD (test code = 71991-7) 40.3 fL 39.0-49.9 RDW-CV (test code = 788-0) 13.1 % 12.0-15.5 PLT (test code = 777-3) 307 See_Comment [Au tomated message] The system which [employer] nerated this result transmit renata reference range: 166 - 35 8 10*3/?L. The reference range was not used to interpret th is result as normal/abnormal . MPV (test code = 20193-1) 11.0 fL 9.5-12.9 NRBC/100 WBC (test code = 0.0 See_Comment [ Automated message] The 3997907686) system which [employer] nerated this result transmit renata reference range: 0.0 - 10 .0 /100 WBCs. The reference r david was not used to interpr et this result as normal/abnor mal. NRBC x10^3 (test code = See_Comment [Au tomated message] The 2224464140) system which [employer] nerated this result transmit renata reference range: 10*3/?L. The reference range was not u sed to interpret this result as normal/abnormal . GRAN MAT (NEUT) % (test code 52.0 % = 770-8) IMM GRAN % (test code = 0.20 % 5531060961) LYMPH % (test code = 736-9) 38.0 % MONO % (test code = 5905-5) 4.6 % EOS % (test code = 713-8) 4.6 % BASO % (test code = 706-2) 0.6 % GRAN MAT x10^3(ANC) (test 2.84 10*3/uL 1.88-7.09 code = 0985195871) IMM GRAN x10^3 (test code = 0.00-0.06 7110919981) LYMPH x10^3 (test code = 2.07 10*3/uL 1.32-3.29 731-0) MONO x10^3 (test code = 0.25 10*3/uL 0.33-0.92 L 742-7) EOS x10^3 (test code = 0.25 10*3/uL 0.03-0.39 711-2) BASO x10^3 (test code = 0.03 10*3/uL 0.01-0.07 704-7) Lab Interpretation (test Abnormal code = 29062-7) [facility]. METABOLIC PANEL ([id number])2023-01-12 04:12:43 Test Item Value Reference Range Interpretation Comments NA (test code = 137 mmol/L 135-145 9871770716) K (test code = 3.4 mmol/L 3.5-5.0 L 3395920557) CL (test code = 104 mmol/L 98-108 5915134744) CO2 TOTAL (test code = 24 mmol/L 23-31 4895567702) AGAP (test code = 9 2-16 7156912978) BUN (test code = 2 mg/dL 7-23 L 3118155134) GLUCOSE (test code = 92 mg/dL 70-110 9655690203) CREATININE (test code = 0.80 mg/dL 0.50-1.04 9724635513) TOTAL BILI (test code = 0.4 mg/dL 0.1-1.6 1311244050) CALCIUM (test code = 8.4 mg/dL 8.6-10.6 L 0556639631) T PROTEIN (test code = 6.3 g/dL 6.3-8.2 0428803377) ALBUMIN (test code = 3.7 g/dL 3.5-5.0 9137784024) ALK PHOS (test code = 87 U/L 34-122 4150248081) ALTv (test code = 27 U/L 5-35 1742-6) AST(SGOT) (test code = 33 U/L 13-40 9769321386) eGFR (test code = 86.0 mL/min/1.73m2 9088550296) WESLEY (test code = WESLEY) Association of [...] tests). Lab Interpretation Abnormal (test code = 79322-0) [facility]. METABOLIC PANEL (20814)2023-01-12 04:12:43 Test Item Value Reference Range Interpretation Comments NA (test code = 137 mmol/L 135-145 8264400216) K (test code = 3.4 mmol/L 3.5-5.0 L 0185299342) CL (test code = 104 mmol/L 98-108 7177069585) CO2 TOTAL (test code = 24 mmol/L 23-31 9388882936) AGAP (test code = 9 2-16 1119488905) BUN (test code = 2 mg/dL 7-23 L 1709723123) GLUCOSE (test code = 92 mg/dL 70-110 1697522758) CREATININE (test code = 0.80 mg/dL 0.50-1.04 8076957387) TOTAL BILI (test code = 0.4 mg/dL 0.1-1.8 3195715921) CALCIUM (test code = 8.4 mg/dL 8.6-10.6 L 3749689077) T PROTEIN (test code = 6.3 g/dL 6.3-8.2 9865998677) ALBUMIN (test code = 3.7 g/dL 3.5-5.0 7391818136) ALK PHOS (test code = 87 U/L 34-122 2481071584) ALTv (test code = 27 U/L 5-35 1742-6) AST(SGOT) (test code = 33 U/L 13-40 7410050588) eGFR (test code = 86.0 mL/min/1.73m2 4898837722) WESLEY (test code = WESLEY) Association of [...] tests). Lab Interpretation Abnormal (test code = 36928-9) [facility] (QUANTITATIVE)2023-01-12 04:07:04 BETA HCG<2.39Non- female and male patients: <5 mIU/mL01/11/2023 11:07 PM [facility] Gestational Age ?Range (mIU/mL) 1-10 ?Weeks ?74-21133518-78 Weeks ?04279-26836354-56 Weeks ?5798-20596190-28 Weeks ?1531-559730 Biotin has been reported to cause a negative bias, interpret results relative to patient's use of biotin. Gestational Age ?Range (mIU/mL) 1-10 ?Weeks ?07-17739438-27 Weeks ?56528-64339969-42 Weeks ?6070-00268274-18 Weeks ?1531-191634 Biotin has been reported to cause a negative bias, interpret results relativeto patient's use of biotin. Gestational Age ?Range (mIU/mL) 1-10 ?Weeks ?48-55349573-15 Weeks ?01744-50015749-49 Weeks ?2650-29563925-86 Weeks ?1531-099553 Biotin has been reported to cause a negative bias, interpret results relative to patient's use of biotin.[facility] (QUANTITATIVE)2023-01-12 04:07:04BETA HCG<2.39Non- female and male patients: <5 mIU/mL01/11/2023 11:07 PM [facility] Gestational Age ?Range (mIU/mL) 1-10 ?Weeks ?71-22190707-66 Weeks ?06489-87347076-79 Weeks ?4172-55975542-17 Weeks ?1531-853283 Biotin has been reported to cause a negative bias, interpret results relative to patient's use of biotin. Gestational Age ?Range (mIU/mL) 1-10 ?Weeks ?44-2567 4011-15 Weeks ?99803-85983720-86 Weeks ?2745-61921074-50 Weeks ?1531-166083 Biotin has been reported to cause a negative bias, interpret results relativeto patient's use of biotin. Gestational Age ?Range (mIU/mL) 1-10 ?Weeks ? 05-91208998-94 Weeks ?79820-88047514-12 Weeks ?1577-11234676-58 Weeks ?1531-521187 Biotin has been reported to cause a negative bias, interpret results relative to patient's use of biotin. [facility]58 Test Item Value Reference Range Interpretation Comments LIPASE (test code = 2456783774) 41 U/L 0-220 Lab Interpretation (test code = Normal 46745-0) [facility] 03:22:58 Test Item Value Reference Range Interpretation Comments LIPASE (test code = 1663199986) 41 U/L 0-220 Lab Interpretation (test code = Normal 18787-5) [facility] [id number] 03:02:00 Test Item Value Reference Range Interpretation Comments POCT PREG (test code = 1605) Negative On board controls acceptable with Yes C Line (test code = 3574) POCT PREG LOT # (test code = 3575) [id number] POCT PREG TEST DATE (test 05/15/2024 code = 3576) Lab Interpretation (test code = Normal 68593-4) [facility] [id number] 03:02:00 Test Item Value Reference Range Interpretation Comments POCT PREG (test code = 1605) Negative On board controls acceptable with Yes C Line (test code = 3574) POCT PREG LOT # (test code = 3575) [id number] POCT PREG TEST DATE (test 05/15/2024 code = 3576) Lab Interpretation (test code = Normal 52895-9) [facility], [id number] 00:23:34 Test Item Value Reference Range Interpretation Comments PREG SERUM (test code Negative = 2815902939) WESLEY (test code = WESLEY) Less than 10 IU/L. ?If low titer or ectopic is suspected, resubmit specimen in 48-72 hours. [facility]. METABOLIC PANEL (29481)2022-07-31 23:58:12 Test Item Value Reference Range Interpretation Comments NA (test code = 140 mmol/L 135-145 4557328945) K (test code = 3.6 mmol/L 3.5-5.0 0441887962) CL (test code = 106 mmol/L 98-108 4206481910) CO2 TOTAL (test code = 21 mmol/L 23-31 L 9119215403) AGAP (test code = 13 2-16 6225637446) BUN (test code = 8 mg/dL 7-23 2290262907) GLUCOSE (test code = 90 mg/dL 70-110 1978464227) CREATININE (test code = 0.90 mg/dL 0.50-1.04 7972247214) TOTAL BILI (test code = 0.5 mg/dL 0.1-1.6 1003128427) CALCIUM (test code = 9.0 mg/dL 8.6-10.6 0229679570) T PROTEIN (test code = 7.8 g/dL 6.3-8.2 7907860179) ALBUMIN (test code = 4.6 g/dL 3.5-5.0 1745737987) ALK PHOS (test code = 63 U/L 34-122 4764632680) ALTv (test code = 23 U/L 5-35 1742-6) AST(SGOT) (test code = 27 U/L 13-40 3249500564) eGFR (test code = 75.1 mL/min/1.73m2 4624720858) WESLEY (test code = WESLEY) Association of [...] tests). Lab Interpretation Abnormal (test code = 96169-2) [facility] 23:57:32 Test Item Value Reference Range Interpretation Comments LIPASE (test code = 7970012788) 55 U/L 0-220 Lab Interpretation (test code = Normal 81079-6) [facility] WITH [id number] 23:47:31 Test Item Value Reference Range Interpretation Comments WBC (test code = 5.64 See_Comment [Automated 1940-2) message] The sy stem which generated this [...] RDW-SD (test code = 42.5 fL 39.0-49.9 03028-6) RDW-CV (test code = 13.0 % 12.0-15.5 788-0) PLT (test code = 339 See_Comment [Automated 777-3) message] The sy stem which generated this result transmitted reference range : 166 - 358 10*3/ ?L. The reference r david was not used to interpret this result as normal/abnormal . MPV (test code = 9.4 fL 9.5-12.9 L 55789-7) NRBC/100 WBC (test 0.0 See_Comment [Automat ed code = 9158218336) message] The system which generated this result transmitted reference range : 0.0 - 10.0 /100 WBCs. The refer ence range was not u sed to interpret th is result as normal/abnormal . NRBC x10^3 (test code See_Comment [Auto mated = 8335872088) message] The s ystem which generated this result transmitted reference range : 10*3/?L. The reference range was not used to interpret this result as normal/abnormal . GRAN MAT (NEUT) % 51.2 % (test code = 770-8) IMM GRAN % (test code 0.20 % = [id number]) LYMPH % (test code = 36.5 % 736-9) MONO % (test code = 5.7 % 5905-5) EOS % (test code = 5.9 % 713-8) BASO % (test code = 0.5 % 706-2) GRAN MAT x10^3(ANC) 2.89 10*3/uL 1.88-7.09 (test code = [id number]) IMM GRAN x10^3 (test 0.00-0.06 code = [id number]) LYMPH x10^3 (test code 2.06 10*3/uL 1.32-3.29 = 731-0) MONO x10^3 (test code 0.32 10*3/uL 0.33-0.92 L = 742-7) EOS x10^3 (test code = 0.33 10*3/uL 0.03-0.39 711-2) BASO x10^3 (test code 0.03 10*3/uL 0.01-0.07 = 704-7) Lab Interpretation Abnormal (test code = 24313-5) [id number]:14:38 Test Item Value Reference Range Interpretation Comments POCT Molecular Strep (test code = Negative Negative 60237-0) Lab Interpretation (test code = Normal 76205-7) [facility] [place]. METABOLIC PANEL (49008)2022-05-05 19:35:37 Test Item Value Reference Range Interpretation Comments NA (test code = 139 mmol/L 135-145 9002385373) K (test code = 4.4 mmol/L 3.5-5.0 9526979590) CL (test code = 104 mmol/L 98-108 5035528705) CO2 TOTAL (test code = 22 mmol/L 23-31 L 9915673043) AGAP (test code = 2-16 5398015409) BUN (test code = 11 mg/dL 7-23 6757322200) GLUCOSE (test code = 95 mg/dL 70-110 0370206576) CREATININE (test code = 0.71 mg/dL 0.50-1.04 6124302838) TOTAL BILI (test code = 0.4 mg/dL 0.1-1.5 9806445297) CALCIUM (test code = 9.1 mg/dL 8.6-10.6 7797093989) T PROTEIN (test code = 7.9 g/dL 6.3-8.2 7839127172) ALBUMIN (test code = 4.7 g/dL 3.5-5.0 3911775244) ALK PHOS (test code = 114 U/L 34-122 1569064515) ALTv (test code = 21 U/L 5-35 1742-6) AST(SGOT) (test code = 21 U/L 13-40 6014327676) eGFR (test code = mL/min/1.73m2 3509623491) WESLEY (test code = WESLEY) Association of [...] tests). Lab Interpretation Abnormal (test code = 89686-9) [facility] WITH [id number] 19:25:37 Test Item Value Reference Range Interpretation Comments WBC (test code = See_Comment [Automated 2590-2) message] The sy stem which generated this [...] RDW-SD (test code = 41.7 fL 39.0-49.9 15042-1) RDW-CV (test code = 12.7 % 12.0-15.5 788-0) PLT (test code = See_Comment H [Automated 777-3) message] The sy stem which generated this result transmitted reference range : 166 - 358 10*3/ ?L. The reference r david was not used to interpret this result as normal/abnormal . MPV (test code = 8.8 fL 9.5-12.9 L 63742-7) NRBC/100 WBC (test See_Comment [Automat ed code = 8239311042) message] The system which generated this result transmitted reference range : 0.0 - 10.0 /100 WBCs. The refer ence range was not u sed to interpret th is result as normal/abnormal . NRBC x10^3 (test code See_Comment [Auto mated = 6909299564) message] The s ystem which generated this result transmitted reference range : 10*3/?L. The reference range was not used to interpret this result as normal/abnormal . GRAN MAT (NEUT) % 56.1 % (test code = 770-8) IMM GRAN % (test code 0.40 % = 4752781443) LYMPH % (test code = 29.9 % 736-9) MONO % (test code = 5.4 % 5905-5) EOS % (test code = 7.8 % 713-8) BASO % (test code = 0.4 % 706-2) GRAN MAT x10^3(ANC) 3.75 10*3/uL 1.88-7.09 (test code = 4317712446) IMM GRAN x10^3 (test 0.03 10*3/uL 0.00-0.06 code = 2106602468) LYMPH x10^3 (test code 2.00 10*3/uL 1.32-3.29 = 731-0) MONO x10^3 (test code 0.36 10*3/uL 0.33-0.92 = 742-7) EOS x10^3 (test code = 0.52 10*3/uL 0.03-0.39 H 711-2) BASO x10^3 (test code 0.03 10*3/uL 0.01-0.07 = 704-7) Lab Interpretation Abnormal (test code = 52076-8) [id number]00 Test Item Value Reference Range Interpretation Comments POCT PREG (test code = 1605) negative On board controls acceptable with present C Line (test code = 3574) POCT PREG LOT # (test code = 3575) [id number] POCT PREG TEST DATE (test 08-11-2023 code = 3576) Lab Interpretation (test code = Normal 44830-9) [facility] [id number] 15:21:11 Test Item Value Reference Range Interpretation Comments WBC (test code = See_Comment [Automated 4638-2) message] The sy stem which generated this result transmitted reference range : 4.30 - 11.10 10*3/?L. The reference range was not used to interpret this result as normal/abnormal . RBC (test code = See_Comment [Automated 498-9) message] The sy stem which generated this [...] RDW-SD (test code = 42.6 fL 39.0-49.9 79472-6) RDW-CV (test code = 12.9 % 12.0-15.5 788-0) PLT (test code = See_Comment H [Automated 777-3) message] The sy stem which generated this result transmitted reference range : 166 - 358 10*3/ ?L. The reference r david was not used to interpret this result as normal/abnormal . MPV (test code = 9.1 fL 9.5-12.9 L 20693-7) NRBC/100 WBC (test See_Comment [Automat ed code = 2545045398) message] The system which generated this result transmitted reference range : 0.0 - 10.0 /100 WBCs. The refer ence range was not u sed to interpret th is result as normal/abnormal . NRBC x10^3 (test code See_Comment [Auto mated = 8449544455) message] The s ystem which generated this result transmitted reference range : 10*3/?L. The reference range was not used to interpret this result as normal/abnormal . GRAN MAT (NEUT) % 56.8 % (test code = 770-8) IMM GRAN % (test code 0.30 % = 2118302753) LYMPH % (test code = 29.5 % 736-9) MONO % (test code = 4.3 % 5905-5) EOS % (test code = 8.3 % 713-8) BASO % (test code = 0.8 % 706-2) GRAN MAT x10^3(ANC) 3.57 10*3/uL 1.88-7.09 (test code = 5719285091) IMM GRAN x10^3 (test 0.00-0.06 code = 0527211009) LYMPH x10^3 (test code 1.85 10*3/uL 1.32-3.29 = 731-0) MONO x10^3 (test code 0.27 10*3/uL 0.33-0.92 L = 742-7) EOS x10^3 (test code = 0.52 10*3/uL 0.03-0.39 H 711-2) BASO x10^3 (test code 0.05 10*3/uL 0.01-0.07 = 704-7) Lab Interpretation Abnormal (test code = 40166-7) [facility]. METABOLIC PANEL (97015)2022-04-26 15:12:13 Test Item Value Reference Range Interpretation Comments NA (test code = 141 mmol/L 135-145 2562318026) K (test code = 3.4 mmol/L 3.5-5.0 L 1244286477) CL (test code = 104 mmol/L 98-108 3897084027) CO2 TOTAL (test code = 23 mmol/L 23-31 3273414609) AGAP (test code = 2-16 1681534230) BUN (test code = 9 mg/dL 7-23 3532220789) GLUCOSE (test code = 101 mg/dL 70-110 8139427868) CREATININE (test code = 0.82 mg/dL 0.50-1.04 8129882339) TOTAL BILI (test code = 0.7 mg/dL 0.1-1.5 8656764160) CALCIUM (test code = 9.3 mg/dL 8.6-10.6 1823413228) T PROTEIN (test code = 8.1 g/dL 6.3-8.2 7799909262) ALBUMIN (test code = 4.7 g/dL 3.5-5.0 1143859246) ALK PHOS (test code = 108 U/L 34-122 9653977142) ALTv (test code = 24 U/L 5-35 1742-6) AST(SGOT) (test code = 49 U/L 13-40 H 8983152814) eGFR (test code = mL/min/1.73m2 7999724466) WESLEY (test code = WESLEY) Association of [...] tests). Lab Interpretation Abnormal (test code = 03613-3) [facility] [id number] 14:45:00 Test Item Value Reference Range Interpretation Comments POCT PREG (test code = 1605) negative On board controls acceptable with present C Line (test code = 3574) POCT PREG LOT # (test code = 3575) [id number] POCT PREG TEST DATE (test 08/11/2023 code = 3576) Lab Interpretation (test code = Normal 45625-6) [facility] [id number] 01:22:00 Test Item Value Reference Range Interpretation Comments POCT PREG (test code = 1605) Negative On board controls acceptable with Present C Line (test code = 3574) POCT PREG LOT # (test code = 3575) [id number] POCT PREG TEST DATE (test 08-11-2023 code = 3576) Lab Interpretation (test code = Normal 33708-7) [facility] METABOLIC PANEL (NA, K, CL, CO2, GLUCOSE, BUN, CREATININE, CA)2022-04-07 23:01:10 Test Item Value Reference Range Interpretation Comments NA (test code = 138 mmol/L 135-145 1380368232) K (test code = 4.3 mmol/L 3.5-5.0 1319476821) CL (test code = 107 mmol/L 98-108 1795902493) CO2 TOTAL (test code = 20 mmol/L 23-31 L 5564859225) AGAP (test code = 2-16 2141979383) BUN (test code = 9 mg/dL 7-23 6771649982) GLUCOSE (test code = 204 mg/dL 70-110 H 6421706846) CREATININE (test code = 0.74 mg/dL 0.50-1.04 1117022322) CALCIUM (test code = 9.1 mg/dL 8.6-10.6 6780046754) eGFR (test code = mL/min/1.73m2 5528512018) WESLEY (test code = WESLEY) Association of [...] tests). Lab Interpretation Abnormal (test code = 71582-2) [facility] WITH [id number] 22:57:34 Test Item Value Reference Range Interpretation [...] RDW-SD (test code = 42.9 fL 39.0-49.9 63670-9) RDW-CV (test code = 13.4 % 12.0-15.5 788-0) PLT (test code = See_Comment H [Automated 777-3) message] The sy stem which generated this result transmitted reference range : 166 - 358 10*3/ ?L. The reference r david was not used to interpret this result as normal/abnormal . MPV (test code = 8.9 fL 9.5-12.9 L 88099-6) NRBC/100 WBC (test See_Comment [Automat ed code = 9190608160) message] The system which generated this result transmitted reference range : 0.0 - 10.0 /100 WBCs. The refer ence range was not u sed to interpret th is result as normal/abnormal . NRBC x10^3 (test code See_Comment [Auto mated = 5801260577) message] The s ystem which generated this result transmitted reference range : 10*3/?L. The reference range was not used to interpret this result as normal/abnormal . GRAN MAT (NEUT) % 88.7 % (test code = 770-8) IMM GRAN % (test code 0.70 % = 3380767845) LYMPH % (test code = 9.4 % 736-9) MONO % (test code = 0.9 % 5905-5) EOS % (test code = 0.1 % 713-8) BASO % (test code = 0.2 % 706-2) GRAN MAT x10^3(ANC) 7.81 10*3/uL 1.88-7.09 H (test code = 5017231625) IMM GRAN x10^3 (test 0.06 10*3/uL 0.00-0.06 code = 1472296337) LYMPH x10^3 (test code 0.83 10*3/uL 1.32-3.29 L = 731-0) MONO x10^3 (test code 0.08 10*3/uL 0.33-0.92 L = 742-7) EOS x10^3 (test code = 0.03-0.39 L 711-2) BASO x10^3 (test code 0.01-0.07 = 704-7) Lab Interpretation Abnormal (test code = 11923-5) [facility] [id number] 14:07:00 Test Item Value Reference Range Interpretation Comments POCT PREG (test code = 1605) negative On board controls acceptable with present C Line (test code = 3574) POCT PREG LOT # (test code = 3575) [id number] POCT PREG TEST DATE (test 08/11/2023 code = 3576) Lab Interpretation (test code = Normal 23281-4) [facility] [id number] 13:52:00 Test Item Value Reference Range Interpretation Comments POCT PREG (test code = 1605) negative On board controls acceptable with C present Line (test code = 3574) Lab Interpretation (test code = Normal 30385-2) [facility] [id number] 14:59:00 Test Item Value Reference Range Interpretation Comments POCT PREG (test code = 1605) negative On board controls acceptable with yes C Line (test code = 3574) POCT PREG LOT # (test code = 3575) [id number] POCT PREG TEST DATE (test 07/11/2023 code = 3576) Lab Interpretation (test code = Normal 16972-8) [facility] METABOLIC PANEL (28775)2022 17:51:43 Test Item Value Reference Range Interpretation Comments NA (test code = 139 mmol/L 135-145 4807433797) K (test code = 4.1 mmol/L 3.5-5 8469273168) CL (test code = 104 mmol/L 98-108 5143178790) CO2 TOTAL (test code = 22 mmol/L 23-31 L 7745052700) AGAP (test code = 2-16 5731514672) BUN (test code = 7 mg/dL 7-23 5345346280) GLUCOSE (test code = 114 mg/dL 70-110 H 0431736011) CREATININE (test code = 0.69 mg/dL 0.5-1.04 2114634974) TOTAL BILI (test code = 0.4 mg/dL 0.1-1.7 1038733760) CALCIUM (test code = 9.7 mg/dL 8.6-10.6 6136694589) T PROTEIN (test code = 7.2 g/dL 6.3-8.2 5500527724) ALBUMIN (test code = 4.6 g/dL 3.5-5 8396718936) ALK PHOS (test code = 65 U/L 34-122 5367617340) ALTv (test code = 15 U/L 5-35 1742-6) AST(SGOT) (test code = 19 U/L 13-40 8833013017) eGFR (test code = mL/min/1.73m2 6876252667) WESLEY (test code = WESLEY) Association of [...] tests). Lab Interpretation Abnormal (test code = 04914-1) [facility] WITH [id number] 17:40:24 Test Item Value Reference Range Interpretation Comments WBC (test code = See_Comment [Automated 9820-2) message] The sy stem which generated this result transmitted reference range : 4.30 - 11.10 10*3/?L. The reference range was not used to interpret this result as normal/abnormal . RBC (test code = See_Comment [Automated 591-8) message] The sy stem which generated this [...] RDW-SD (test code = 43.1 fL 39-49.9 83336-0) RDW-CV (test code = 13.2 % 12-15.5 788-0) PLT (test code = See_Comment [Automated 777-3) message] The sy stem which generated this result transmitted reference range : 166 - 358 10*3/ ?L. The reference r david was not used to interpret this result as normal/abnormal . MPV (test code = 9.5 fL 9.5-12.9 52092-8) NRBC/100 WBC (test See_Comment [Automat ed code = 5410159866) message] The system which generated this result transmitted reference range : 0.0 - 10.0 /100 WBCs. The refer ence range was not u sed to interpret th is result as normal/abnormal . NRBC x10^3 (test code See_Comment [Auto mated = 9482722427) message] The s ystem which generated this result transmitted reference range : 10*3/?L. The reference range was not used to interpret this result as normal/abnormal . GRAN MAT (NEUT) % 57.8 % (test code = 770-8) IMM GRAN % (test code 0.20 % = 0871823108) LYMPH % (test code = 30.8 % 736-9) MONO % (test code = 5.1 % 5905-5) EOS % (test code = 5.6 % 713-8) BASO % (test code = 0.5 % 706-2) GRAN MAT x10^3(ANC) 3.61 10*3/uL 1.88-7.09 (test code = 3580736405) IMM GRAN x10^3 (test 0-0.06 code = 8728722259) LYMPH x10^3 (test code 1.92 10*3/uL 1.32-3.29 = 731-0) MONO x10^3 (test code 0.32 10*3/uL 0.33-0.92 L = 742-7) EOS x10^3 (test code = 0.35 10*3/uL 0.03-0.39 711-2) BASO x10^3 (test code 0.03 10*3/uL 0.01-0.07 = 704-7) Lab Interpretation Abnormal (test code = 52570-9) [facility] [id number] 17:27:00 Test Item Value Reference Range Interpretation Comments POCT PREG (test code = 1605) negative On board controls acceptable with present C Line (test code = 3574) POCT PREG LOT # (test code = 3575) [id number] POCT PREG TEST DATE (test code = 3576) Lab Interpretation (test code = Normal 94560-2) [facility] 12:45:21 Test Item Value Reference Range Interpretation Comments LIPASE (test code = 9236840779) 41 U/L 0-220 Lab Interpretation (test code = Normal 30635-5) [facility] [id number] 10:57:00 Test Item Value Reference Range Interpretation Comments POCT PREG (test code = 1605) Negative On board controls acceptable with Present C Line (test code = 3574) POCT PREG LOT # (test code = 3575) [id number] POCT PREG TEST DATE (test 03/12/2023 code = 3576) Lab Interpretation (test code = Normal 81084-6) [facility] (NA, K, CL, CO2, GLUCOSE, BUN, CREATININE, CA)2022-01-18 10:56:51 Test Item Value Reference Range Interpretation Comments NA (test code = 137 mmol/L 135-145 0489934130) K (test code = 4.6 mmol/L 3.5-5 Slight 6290903680) hemolysis CL (test code = 108 mmol/L 98-108 0218685220) CO2 TOTAL (test code 22 mmol/L 23-31 L = 2939734804) AGAP (test code = 2-16 4277719368) BUN (test code = 11 mg/dL 7-23 Slight 4525271726) hemolysis GLUCOSE (test code = 83 mg/dL 70-110 8855257427) CREATININE (test code 0.68 mg/dL 0.5-1.04 = 8177334742) CALCIUM (test code = 8.8 mg/dL 8.6-10.6 0955410838) eGFR (test code = mL/min/1.73m2 4261588321) WESLEY (test code = WESLEY) Association of [...] tests). Lab Interpretation Abnormal (test code = 05201-2) [facility] (27[address] (ALB,T.PRO,BILI T,BU/BC,ALT,AST,ALK PHOS)2022-01-18 10:56:51 Test Item Value Reference Range Interpretation Comments TOTAL BILI (test code = 8485776882) 0.6 mg/dL 0.1-1.1 BILI UNCON (test code = 9708553804) 0.1 mg/dL 0.1-1.1 BILI CONJ (test code = 7051099585) 0.0 mg/dL 0-0.3 T PROTEIN (test code = 5783619151) 8.6 g/dL 6.3-8.2 H ALBUMIN (test code = 5383292623) 5.1 g/dL 3.5-5 H ALK PHOS (test code = 6163410720) 79 U/L 34-122 ALTv (test code = 1742-6) 117 U/L 5-35 H AST(SGOT) (test code = 6651064595) 163 U/L 13-40 H Lab Interpretation (test code = Abnormal 50817-5) [facility], [id number] 10:54:25 Test Item Value Reference Range Interpretation Comments PREG SERUM (test code Negative = 1925636690) WESLEY (test code = WESLEY) Less than 10 IU/L. ?If low titer or ectopic is suspected, resubmit specimen in 48-72 hours. [facility] [id number] 10:40:49 Test Item Value Reference Range Interpretation Comments WBC (test code = See_Comment [Automated 7437-2) message] The sy stem which generated this result transmitted reference range : 4.30 - 11.10 10*3/?L. The reference range was not used to interpret this result as normal/abnormal . RBC (test code = See_Comment [Automated 279-8) message] The sy stem which generated this [...] RDW-SD (test code = 45.3 fL 39-49.9 17856-2) RDW-CV (test code = 14.5 % 12-15.5 788-0) PLT (test code = See_Comment [Automated 717-3) message] The sy stem which generated this result transmitted reference range : 166 - 358 10*3/ ?L. The reference r david was not used to interpret this result as normal/abnormal . MPV (test code = 9.5 fL 9.5-12.9 74853-8) NRBC/100 WBC (test See_Comment [Automat ed code = 3098987292) message] The system which generated this result transmitted reference range : 0.0 - 10.0 /100 WBCs. The refer ence range was not u sed to interpret th is result as normal/abnormal . NRBC x10^3 (test code See_Comment [Auto mated = 1823930772) message] The s ystem which generated this result transmitted reference range : 10*3/?L. The reference range was not used to interpret this result as normal/abnormal . GRAN MAT (NEUT) % 47.6 % (test code = 770-8) IMM GRAN % (test code 0.60 % = 4401139763) LYMPH % (test code = 39.9 % 736-9) MONO % (test code = 5.9 % 5905-5) EOS % (test code = 5.3 % 713-8) BASO % (test code = 0.7 % 706-2) GRAN MAT x10^3(ANC) 4.45 10*3/uL 1.88-7.09 (test code = 8958546639) IMM GRAN x10^3 (test 0.06 10*3/uL 0-0.06 code = 2497534302) LYMPH x10^3 (test code 3.74 10*3/uL 1.32-3.29 H = 731-0) MONO x10^3 (test code 0.55 10*3/uL 0.33-0.92 = 742-7) EOS x10^3 (test code = 0.50 10*3/uL 0.03-0.39 H 711-2) BASO x10^3 (test code 0.07 10*3/uL 0.01-0.07 = 704-7) Lab Interpretation Abnormal (test code = 44781-0) [facility] [id number] 18:31:00 Test Item Value Reference Range Interpretation Comments POCT PREG (test code = 1605) Negative On board controls acceptable with C Yes Line (test code = 3574) POCT PREG LOT # (test code = 3575) POCT PREG TEST DATE (test code = 3576) [facility] W/O SPECIFIC [id number] 18:31:00 Test Item Value Reference Range Interpretation [...] code = 3257) Trace Negative - Negative [facility] Consult Notes Date/Time Note Provider Source 2023-01-12 00:12:43 [id number]:12:43Associated Order(s): [facility] CONSULT GENERAL SURGERY TRAUMA/ACS Surgery Consult NoteAttending: [...] symptomatic cholelithiasis 1.5 months ago at OSH ([facility]). Pt states that she has had persistent RUQ pain with nausea and po intolerance along with intermittent chills and vomiting since surgery. Was seen by PCP and instructed to come to [facility] ED for further evaluation. Review of Systems:(BOLDED [...] N/A 07/21/2019 Surgeon: Prasanna Vargas MD; Location: [facility] Labor and Delivery OR Location TUBAL LIGATION N/A 07/21/2019 Surgeon: Prasanna Vargas MD; Location: [facility] Labor and Delivery OR Location Family [...] skin once every month. 1 mL 3 Whxzwwngyc-Eabetniwtapsg-Kzpc (FIORICET) 50-300-40 mg per capsule Take 1 [...] symptomatic cholelithiasis 1.5 months ago at OSH ([facility]).Plan:Admission to [facility] serviceConsult IR for percutaneous drainage of gallbladder [...] pain, nausea, anorexia since lap pasquale at [facility] on 12/01/22 with noted venous bleeding from [...] Surgery, and Surgical Critical Care In-house Pager: [phone] [id number], Amy1.2.840.892478.1.13.104.2.7.2.833237Lmq eydTzkKD3475-34-03Q38:39:26Consult noteTXT1.2.840.031754.1.13.104.2.7.2.84020 9|[id number] for patient wdrd57257-1Uslsgbc noteLNUTMB[address] FvftQuxsmhddqNynajycejQPQQ5409858994ROXJKB VOCKGJPQYGSXAFJX4083-07-64D33:39:261.2.840 .162023.1.72.3.15|1.2.840.970713.1.13.104. 2.7.2.727879_1889654271 History and Physical Notes Date/Time Note Provider Source 2023-01-12 01:05:04 [id number]:05:04Formatting of this note [facility] might be different from the original.01/12/23 1:05 AM Please refer to consult note written by Rodolfo Riggins DO on 01/12/23 for complete H&P.NITESH Gandara-2 Surgery Resident ssociated attestation - Mirella Vergara MD - 01/12/2023 1:47 AM CDT Fogpp28685-8Pkikzqq and physical fipqTY3071673Qgqint, Amy1.2.840.274376.1.13.104.2.7.2.285986Esy qwtZvaBS3884-59-20N96:47:52History and physical noteTXT1.2.840.148361.1.13.104.2.7.2.98044 9|[id number] for patient dagt57938-7Lvvbdxd and physical noteLNUT[address] Ev[id number] PZMEDLTUHUMEGGDI1269-17-33S25:47:521.2.840 .151389.1.72.3.15|1.2.840.134921.1.13.104. 2.7.2.727879_1889658330
[2023-03-27] MEDS ORDERED: DIPHENHYDRAMINE 50 MG/ML VIAL ONE (08:29)
[2023-03-27] MEDS ORDERED: HALOPERIDOL LACT 5 MG/ML INJ ONE (08:30)
[2023-03-27 08:45] LABS: Absolute Lymphocytes (CBC) 1.5 K/uL (0.7-4.9); Hematocrit 39.9 % (36.0-45.0); Lymphocytes % 19.8 % (15.3-44.8); MCV 85.3 fL (80-100); MPV 7.2 fL (7.6-11.3); Platelets 340 thou/uL (152-406); RBC Red Blood Cell Count 4.67 M/uL (3.86-4.86)
[2023-03-27 09:14] LABS: Albumin 3.7 g/dL (3.4-5.0); Bilirubin Total 0.8 mg/dL (0.2-1.0); Potassium 3.5 mEq/L (3.5-5.1); Protein, Total 8.1 g/dL (6.4-8.2)
--- NOTE | 2023-03-27 09:31 | RAD REPORT ---
EXAM DESCRIPTION: CT - Abdomen Pelvis W Contrast - 03/27/2023 9:03 am CLINICAL HISTORY: ABD PAIN COMPARISON: Abdomen Pelvis W Contrast dated 12/05/2022; Abdomen Pelvis W Contrast dated 12/01/2022 ; Abdomen Pelvis W Contrast dated 11/17/2022; Abdomen Pelvis W Contrast dated 07/02/2022; Abdomen Pelvis Wo Contrast dated 03/24/2023; Abdomen Pelvis Wo Contrast dated 12/19/2022 TECHNIQUE: Thin cut axial CT imaging of the abdomen and pelvis was performed following intravenous a dministration of 100 mL Isovue 300. Multiplanar reformats were generated and reviewed. All CT scans are performed using dose optimization technique as appropriate and may include automated exposure control or mA/KV adjustment according to patient size. FINDINGS: No suspicious findings in the lung bases. The liver, spleen, adrenal glands, and pancreas show no suspicious findings. Gallbladder was surgical ly removed. Tiny residual elongated collection in the gallbladder bed, measuring 2.5 x 1.2 cm in grea test coronal dimensions, with interval resolution of the gas components since the prior contrast enha nced CT of 12/05/2022. Symmetric renal function is seen with no hydronephrosis or suspicious renal mass. Right superior pole 2-3 millimeter nonobstructing calculus. No dilated bowel loops or bowel wall thickening. No free air, free fluid or inflammatory stranding. N o hernia, mass or bulky lymphadenopathy. The urinary bladder is suboptimally distended, without signi ficant finding. No suspicious bony findings. IMPRESSION: Stable nonobstructing right superior pole 2 -3 millimeter renal calculus. No other acute intra-abdominal process.
--- NOTE | 2023-03-27 09:52 | EDPHYS ---
Physician Documentation [facility] Name: Natanael Dyson Age: 28 yrs Sex: Female : 1995 Arrival Date: 03/27/2023 Time: 07:41 Bed 4 Private MD: ED Physician Diaz Arizmendi HPI: 03/27 08:07 This 28 yrs old Female presents to ER via Ambulatory with complaints of ec2 Abdominal Pain, Low Back Pain, Possible Kidney Stone, Nausea/Vomiting. 08:07 Patient arrives today due to concern for right-sided abdominal pain. She was seen by me ec2 several days ago, diagnosed with a UTI, external records show that she had a CAT scan that showed a nonobstructing kidney stone. She complains of persistent nausea and vomiting. Denies any urinary problems.. 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 - Social history:: Smoking status: unknown. ROS: 08:07 Constitutional: as per hpi ec2 Exam: 08:07 Constitutional: GEN: NAD Head: atraumatic Eyes: EOMI Ears: External ears are ec2 normal. CV: re tachycardia LUNGS: no respiratory distress ABD: non-distended, soft, nontender, no guarding, right CVA TTP SKIN: no evidence of rashes MSK: no evidence of trauma NEURO: moves all extremities equally Vital Signs: 07:54 BP 135 / 108; Pulse 113; Resp 18; Temp 97; Pulse Ox 100% ; Weight 58.97 kg; Height 5 ll1 ft. 1 in. ; Pain 9/10; 10:11 BP 133 / 92; Pulse 94; Resp 16; Pulse Ox 100% on R/A; Pain 9/10; iw 07:54 Body Mass Index 24.56 (58.97 kg, 154.94 cm) ll1 07:54 Pain Scale: Adult ll1 10:11 Pain Scale: Adult iw MDM: 07:56 Patient medically screened. ec2 08:08 ED course: Patient arrives today due to concern for right-sided flank pain. Examination ec2 remarkable for abdominal findings as noted above. Will obtain lab work, repeat CT imaging, treat the patient symptoms with morphine and Haldol and Benadryl. Currently considering ureteral stone, pyelonephritis.. 09:34 Data reviewed: vital signs. ED course: CBC is reassuring, metabolic profile with some ec2 diminished renal function with a creatinine of 1.34. Some LFT abnormalities noted. Lipase within normal ranges. CT abdomen pelvis shows stable nonobstructing kidney stone. No acute process noted. . 09:50 ED course: Patient remains with persistent symptoms, will admit for continued ec2 management of her symptoms. Discussed case with hospitalist, pending admission.. 03/27 08:06 Order name: CBC with Diff; Complete Time: 09:33 ec2 03/27 08:06 Order name: CMP; Complete Time: 09:34 ec2 03/27 08:06 Order name: Lipase; Complete Time: 09:34 ec2 03/27 08:06 Order name: Test, Urine ec2 03/27 08:06 Order name: UAM ec2 03/27 11:14 Order name: COVID-19/FLU A+B/RSV EDMS 03/27 11:14 Order name: T4 Free EDMS 03/27 11:14 Order name: Thyroid Stimulating Hormone EDMS 03/27 11:14 Order name: Basic Metabolic Panel EDMS 03/27 11:14 Order name: Basic Metabolic Panel EDMS 03/27 11:14 Order name: Basic Metabolic Panel EDMS 03/27 11:14 Order name: Basic Metabolic Panel EDMS 03/27 11:14 Order name: Basic Metabolic Panel EDMS 03/27 11:14 Order name: Basic Metabolic Panel EDMS 03/27 11:14 Order name: CBC with Automated Diff EDMS 03/27 11:14 Order name: CBC with Automated Diff EDMS 03/27 11:14 Order name: CBC with Automated Diff EDMS 03/27 11:14 Order name: CBC with Automated Diff EDMS 03/27 11:14 Order name: CBC with Automated Diff EDMS 03/27 11:14 Order name: CBC with Automated Diff EDMS 03/27 11:14 Order name: Lipid Profile EDMS 03/27 11:14 Order name: Lipid Profile EDMS 03/27 11:14 Order name: Magnesium EDMS 03/27 11:14 Order name: Magnesium EDMS 03/27 11:14 Order name: Magnesium EDMS 03/27 11:14 Order name: Magnesium EDMS 03/27 11:14 Order name: Magnesium EDMS 03/27 11:14 Order name: Magnesium EDMS 03/27 11:14 Order name: Phosphorus EDMS 03/27 11:14 Order name: Phosphorus EDMS 03/27 11:14 Order name: Phosphorus EDMS 03/27 11:14 Order name: Phosphorus EDMS 03/27 11:14 Order name: Phosphorus EDMS 03/27 11:14 Order name: Phosphorus EDMS 03/27 08:06 Order name: CT Abd/Pelvis - IV Contrast Only; Complete Time: 09:34 ec2 03/27 11:14 Order name: EKG Electrocardiogram EDMS 03/27 08:06 Order name: IV Saline Lock; Complete Time: 09:01 ec2 03/27 08:06 Order name: Labs collected and sent; Complete Time: 09:01 ec2 Administered Medications: 08:59 Not Given (Patient Refused): haloperidol5 mg IVP once iw 09:00 Drug: NS 0.9% IV 1000 ml IV at 1 bolus Per protocol; 1000 mL bolus Route: IV; Rate: 1 iw bolus; Site: right wrist; 09:15 Follow up: Response: No adverse reaction rs5 09:00 Drug: diphenhydrAMINE IVP 50 mg IVP once Route: IVP; Site: right wrist; iw 09:15 Follow up: Response: No adverse reaction rs5 09:00 Drug: morphine IVP or IV 4 mg IVP once over 4 mins Route: IVP; Infused Over: 4 mins; iw Site: right wrist; 09:15 Follow up: Response: No adverse reaction; Pain is decreased rs5 Disposition Summary: 03/27/23 09:51 Hospitalization Ordered Notes: Hospitalization Status: Inpatient Admission ec2 Provider: Ronald Hernandez ec2 [facility]2 Condition: Stable ec2 Problem: an ongoing problem ec2 Symptoms: are unchanged ec2 Bed/Room Type: Standard ec2 Room Assignment: 218(03/27/23 11:18) bd Diagnosis - Flank Pain ec2 Forms: - Medication Reconciliation Form ec2 - SBAR form ec2 - Leadership Thank You Letter ec2 Signatures: Dispatcher [employer] EDMS Miley Hernández Irene, RN RN iw Brandi Cotter RN RN ll1 Diaz Arizmendi MD MD ec2 Brody Sevilla RN rs5 Corrections: (The following items were deleted from the chart) 10:52 08:06 Urinalysis+U.LAB.BRZ ordered. EDMS EDMS 11:18 09:51 ec2 bd 11:19 11:14 Urinalysis w/ reflexes ordered. EDMS EDMS
--- NOTE | 2023-03-27 09:52 | ER ---
Nurse's Notes [facility] Name: Natanael Dyson Age: 28 yrs Sex: Female : 1995 Arrival Date: 03/27/2023 Time: 07:41 Bed 4 Private MD: Diagnosis: Flank Pain Presentation: 03/27 07:54 Chief complaint: Chief complaint: Patient states: N/V abd pain continues. ll1 07:54 Coronavirus screen: Client denies travel out of the [place] in the last 14 days. At this ll1 time, the client does not indicate any symptoms associated with coronavirus-19. Ebola Screen: Patient denies travel to an Ebola-affected area in the 21 days before illness onset. Initial Sepsis Screen: Does the patient meet any 2 criteria? HR > 90 bpm. No. Patient's initial sepsis screen is negative. Does the patient have a suspected source of infection? Yes: Acute abdominal pain. Risk Assessment: Do you want to hurt yourself or someone else? Patient reports no desire to harm self or others. Onset of symptoms was March 25, 2023. 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 - Social history:: Smoking status: unknown. Screenin:12 [facility] ED Fall Risk Assessment (Adult) Score/Fall Risk Level 0 - 2 = Low Risk. Abuse iw screen: Denies threats or abuse. Denies injuries from another. Nutritional screening: No deficits noted. Tuberculosis screening: No symptoms or risk factors identified. Assessment: 07:50 General: Appears distressed, uncomfortable, Behavior is cooperative. Pain: Complains of rs5 pain in right flank Pain radiates to lower back Pain currently is 10 out of 10 on a pain scale. Quality of pain is described as heavy, pressure, Pain began last Saterday (03/23/23) Is. 07:50 Neuro: Level of Consciousness is awake, alert, obeys commands, Oriented to person, rs5 place, time, situation. Cardiovascular: Heart tones S1 S2 present Rhythm is regular. Respiratory: Airway is patent Respiratory effort is even, unlabored, Respiratory pattern is regular, symmetrical, Breath sounds are clear bilaterally. GI: Abdomen is round non-distended, Bowel sounds present X 4 quads. Abd is soft and non tender X 4 quads. : No signs and/or symptoms were reported regarding the genitourinary system. : Denies burning with urination, blood in urine. EENT: No signs and/or symptoms were reported regarding the EENT system. Derm: Skin is intact, Skin is pink, warm \T\ dry. Musculoskeletal: Range of motion: intact in all extremities. 09:02 Reassessment: pt medicated , transported to CT via stretcher. iw 10:11 Reassessment: Patient appears in no apparent distress at this time. Patient and/or iw family updated on plan of care and expected duration. Pain level reassessed. pt requesting more pain and nausea medicine, will wait for admission orders. 10:41 Reassessment: Hospitalist at bedside. iw 11:26 Reassessment: attempt to call report, nurse does not know who is getting the pt , on iw hold for 9 minutes, CN in a meeting. 11:47 Reassessment: attempt to call report , medical records secretary does not know who is assigned 218. iw Vital Signs: 07:54 BP 135 / 108; Pulse 113; Resp 18; Temp 97; Pulse Ox 100% ; Weight 58.97 kg; Height 5 ll1 ft. 1 in. ; Pain 9/10; 10:11 BP 133 / 92; Pulse 94; Resp 16; Pulse Ox 100% on R/A; Pain 9/10; iw 07:54 Body Mass Index 24.56 (58.97 kg, 154.94 cm) ll1 07:54 Pain Scale: Adult ll1 10:11 Pain Scale: Adult iw ED Course: 07:43 Patient arrived in ED. im 07:53 Arm band placed on Patient placed in an exam room, on a stretcher. ll1 07:55 Triage completed. ll1 07:56 Diaz Arizmendi MD is Attending Physician. ec2 08:05 Sevilla, Brody, RN is Primary Nurse. rs5 09:00 Provided Education on: medication . iw 09:01 Inserted saline lock: 24 gauge in right wrist, using aseptic technique. Blood iw collected. IV inserted by ROSEY Champion. 09:05 CT Abd/Pelvis - IV Contrast Only In Process Unspecified. EDMS 09:51 Ronald Hernandez is Hospitalizing Provider. ec2 10:12 Patient has correct armband on for positive identification. iw 12:15 No provider procedures requiring assistance completed. Patient admitted, IV remains in iw place. Administered Medications: 08:59 Not Given (Patient Refused): haloperidol5 mg IVP once iw 09:00 Drug: NS 0.9% IV 1000 ml IV at 1 bolus Per protocol; 1000 mL bolus Route: IV; Rate: 1 iw bolus; Site: right wrist; 09:15 Follow up: Response: No adverse reaction rs5 09:00 Drug: diphenhydrAMINE IVP 50 mg IVP once Route: IVP; Site: right wrist; iw 09:15 Follow up: Response: No adverse reaction rs5 09:00 Drug: morphine IVP or IV 4 mg IVP once over 4 mins Route: IVP; Infused Over: 4 mins; iw Site: right wrist; 09:15 Follow up: Response: No adverse reaction; Pain is decreased rs5 Medication: 12:16 VIS not applicable for this client. iw Outcome: 09:51 Decision to Hospitalize by Provider. ec2 12:16 Admitted to Med/surg accompanied by tech, via wheelchair, room 218, Report called to iw Rose 12:16 Condition: good 12:16 Instructed on the need for admit, 12:17 Patient left the ED. iw Signatures: Dispatcher [employer] Vania Parekh RN RN iw Brandi Cotter RN RN ll1 Brody Sevilla RN RN rs5 Margie Nettles Edwin, MD MD ec2 Corrections: (The following items were deleted from the chart) 07:55 07:54 Chief complaint: ll1 ll1 07:56 07:54 BP 135 / 108; Pulse 113bpm; Resp 18bpm; Pulse Ox 100%; Temp 87F; 58.97 kg; Height ll1 5 ft. 1 in.; BMI: 24.5; Pain 9/10, Adult; ll1 10:03 07:50 Pain: Complains of pain in right flank Pain radiates to lower back Pain currently rs5 is 10 out of 10 on a pain scale. Quality of pain is described as heavy, pressure, Pain began last (03/23/23) Is rs5
[2023-03-27 12:11] LABS: Thyroid Stimulating Hormone 2.22 uIU/mL (0.358-3.740)
[2023-03-27] MEDS: MORPHINE 2 MG/ML SYR IV PRN ×3 (12:14→23:40)
[2023-03-27] MEDS: PROMETHAZINE INJ 25 MG/ML AMP IV PRN ×3 (12:14→22:18)
[2023-03-27] MEDS ORDERED: PROMETHAZINE INJ 25 MG/ML AMP ONE (12:20)
[2023-03-27 12:21] VITALS: O2SAT 100
[2023-03-27] MEDS ORDERED: SCOPOLAMINE HYDROBROMIDE PATCH TD ONE (13:56)
[2023-03-27] MEDS ORDERED: INFLUENZA VACCINE (for 6+ mo) 0.5 ML DOSE IMVAC ONE (15:00)
[2023-03-27] MEDS: NA CHLORIDE 0.9% 1,000 ML IV SCH (15:50)
--- NOTE | 2023-03-27 17:53 | P.HP ---
Certification for Inpatient Patient admitted to: Observation With expected LOS: >2 Midnights Patient will require the following post-hospital care: None Practitioner: I am a practitioner with admitting privileges, knowledge of patient current condition, hospital course, and medical plan of care. Services: Services provided to patient in accordance with Admission requirements found in Title 42 Section 412.3 of the Code of Federal Regulations Patient History Date of Service: 03/27/23 Reason for admission: Intractable Nausea vomiting History of Present Illness: Natanael Dyson is a 28-year-old female with past medical history of anxiety and depression, and kidney stones who presents to the ED complaining of 4 days of nausea vomiting, has not had anything to eat or drink in the last few days. She is complaining of right lower quadrant pain. Initial vitals 4 BP 135 / 108; Pulse 113; Resp 18; Temp 97; Pulse Ox 100%. Significant labs BUN/creatinine 13/1.34, sodium 134, potassium 3.5. While in the ED she was given morphine for pain, Benadryl for nausea, normal saline 1 L. Her nausea and vomiting has not improved. CT abdomen pelvis "Stable nonobstructing right superior pole 2 -3 millimeter renal calculus. No other acute intra-abdominal process". Natnaael will be admitted to hospitalist service for further evaluation and treatment of intractable nausea vomiting with dehydration. Allergies ketorolac [From Toradol] Allergy (Verified 12/01/22 06:33) Hives/Rash metoclopramide [From Reglan] Allergy (Verified 12/01/22 06:33) Hives/Rash prochlorperazine [From Compazine] Allergy (Verified 12/01/22 06:33) Hives/Rash Home Medications: Escitalopram Oxalate [Lexapro] 10 mg PO DAILY #30 tab 12/04/22 ALPRAZolam [Xanax*] 0.5 mg PO Q12HP PRN #30 tab 12/07/22 Amox/Clavulanate [Augmentin 875-125 Tab] 1 each PO BID #10 tab 12/07/22 - Past Medical/Surgical History -: Bipolar Disorder -: Oppositional Defiant Disorder -: ADHD -: Anxiety -: -: tubal ligation -: Jayson Eaton 12/01/2022 - Social History Smoking Status: Never smoker Alcohol use: No CD- Drugs: No Caffeine use: Yes Place of Residence: Home Review of Systems General: Weakness, Malaise Eyes: Unremarkable ENT: Unremarkable Respiratory: Unremarkable Cardiovascular: Unremarkable Gastrointestinal: Nausea, Vomiting, Unremarkable (right lower quadrant pain) Genitourinary: Unremarkable Musculoskeletal: Unremarkable Integumentary: Unremarkable Neurological: Unremarkable Lymphatics: Unremarkable Physical Examination - Vital Signs Temperature: 97.7 F Blood Pressure: 138/74 Pulse: 97 Respirations: 16 Pulse Ox (%): 95 - Physical Exam General: Alert, In no apparent distress, Oriented x3, Moderate distress HEENT: Atraumatic, Normocephalic, PERRLA Neck: Supple, 2+ carotid pulse no bruit, JVD not distended Respiratory: Clear to auscultation bilaterally, Normal air movement Cardiovascular: No edema, Normal pulses, Regular rate/rhythm, Normal S1 S2 Capillary refill: <2 Seconds Gastrointestinal: Normal bowel sounds, Tenderness (RLQ) Musculoskeletal: No clubbing, No swelling, No contractures, No erythema Integumentary: No rashes, No breakdown Neurological: Normal speech, Normal strength at 5/5 x4 extr - Studies Laboratory Data (last 24 hrs) 03/27/23 03/27/23 08:35 08:35 WBC 7.80 Hgb 13.5 Hct 39.9 Plt Count 340 Sodium 134 L Potassium 3.5 BUN 13 Creatinine 1.34 H Glucose 108 H Total Bilirubin 0.8 AST 55 H ALT 205 H Alkaline Phosphatase 162 H Lipase 16 Assessment and Plan - Plan Assessment and Plan Intractable nausea and vomiting fluid volume deficit Right 2-3 millimeter Renal calculus IVF phenergan, scopalamine patch Morphine CT scan report "Stable nonobstructing right superior pole 2 -3 millimeter renal calculus. No other acute intra-abdominal process" Consult Urology NPO ADA likely from dehydration BUN/Creatinine 13/1.34 IVF anxiety and depression restart home medications Full code DVT ppx LOS 2-3 days Discharge Plan: Home Plan to discharge in: 48 Hours - Advance Directives Does patient have a Living Will: No Does patient have a Durable POA for Healthcare: No Time Spent Managing Pts Care (In Minutes): 55
[2023-03-27 18:57] LABS: Specific Gravity 1.039 (1.005-1.030); Specific Gravity > 1.030 (1.005-1.030); Urine Bacteria <20 /HPF (<20); Urine Bilirubin NEGATIVE (Negative); Urine Blood 3+ (OVER) (Negative); Urine Clarity Extremely Turbid (Clear); Urine Color Light-Yellow (Yellow); Urine Glucose NEGATIVE (Negative); Urine Mucus Slight /HPF (None Seen); Urine Protein TRACE (Negative); Urine RBC >50 /HPF (None Seen); Urine Urobilinogen Normal (Normal); Urine pH 5.5 (5.0-7.0)
[2023-03-27] MEDS: HEPARIN 5000 UNIT/ML 1 ML VIAL SQ SCH (19:32)
[2023-03-27 23:56] LABS: SARS-COV-2 RT PCR NEGATIVE (NEGATIVE)
[2023-03-28] MEDS: HEPARIN 5000 UNIT/ML 1 ML VIAL SQ SCH ×3 (01:00→17:00)
[2023-03-28] MEDS: NA CHLORIDE 0.9% 1,000 ML IV SCH ×4 (01:29→20:33)
[2023-03-28 02:43] LABS: Absolute Lymphocytes (CBC) 2.3 K/uL (0.7-4.9); Hematocrit 36.5 % (36.0-45.0); Lymphocytes % 39.3 % (15.3-44.8); MCV 86.5 fL (80-100); MPV 7.8 fL (7.6-11.3); Platelets 303 thou/uL (152-406); RBC Red Blood Cell Count 4.22 M/uL (3.86-4.86)
[2023-03-28 03:30] LABS: Magnesium 2.2 mg/dL (1.6-2.4); Phosphorus 3.2 mg/dL (2.5-4.9)
[2023-03-28] MEDS: KCL 20 MEQ/100 mL IVPB 20 MEQ/100 ML BAG IV SCH ×2 (04:40→07:00)
[2023-03-28] MEDS: PROMETHAZINE INJ 25 MG/ML AMP IV PRN ×4 (04:56→22:02)
[2023-03-28] MEDS: MORPHINE 2 MG/ML SYR IV PRN ×4 (06:33→23:58)
[2023-03-28] MEDS ORDERED: POTASSIUM 25 MEQ EFFERV TAB PO ONE ×2 (06:38→07:51)
[2023-03-28] MEDS: SUCRALFATE 1GM/10ML UCUP FT SCH ×3 (12:05→20:32)
--- NOTE | 2023-03-28 17:32 | P.DS ---
Admission Date: 03/27/23 Discharge Date: 03/28/23 Disposition: ROUTINE DISCHARGE Discharge Condition: GOOD Reason for Admission: Intractable Nausea vomiting Brief History of Present Illness: Natanael Dyson is a 28-year-old female with past medical history of anxiety and depression, and kidney stones who presents to the ED complaining of 4 days of nausea vomiting, has not had anything to eat or drink in the last few days. She is complaining of right lower quadrant pain. Initial vitals 4 BP 135 / 108; Pulse 113; Resp 18; Temp 97; Pulse Ox 100%. Significant labs BUN/creatinine 13/1.34, sodium 134, potassium 3.5. While in the ED she was given morphine for pain, Benadryl for nausea, normal saline 1 L. Her nausea and vomiting has not improved. CT abdomen pelvis "Stable nonobstructing right superior pole 2 -3 millimeter renal calculus. No other acute intra-abdominal process". Natanael will be admitted to hospitalist service for further evaluation and treatment of intractable nausea vomiting with dehydration. Hospital Course: Diagnosis intractable nausea vomiting Fluid volume deficit Right 2-3 mm renal calculi ADA likely from dehydration Anxiety and depression Natanael Dyson is a pleasant 28-year-old female with a past medical history significant for anxiety and depression, and kidney stones who was admitted to the [facility] on 03/27/2020 for intractable nausea and vomiting. Natanael presented to the ED with complaints of nausea and vomiting for [address] abdomen pelvis shows nonobstructing right superior pole 2-3 mm renal calculi, and she complains of a right lower quadrant pain. Natanael reports she has not experienced this kind of pain with her previous kidney stones. Dr. Moeller was consulted and felt this would not be the cause of her intractable nausea vomiting. Overnight she has responded well to IV fluids while n.p.o. she has tolerated diet advancement from clear liquids to full liquids with no complai nts. She states she is feeling better, on room air, ambulating independently in her room, and urinating without complaints. On 03/28/2020, Natanael was seen on morning rounds and deemed medically stable for discharge. Natanael was discharged with instructions to schedule follow-up appointments with PCP. Natanael was not provided prescriptions for this admission. The patient and family members were given the opportunity to ask questions and reported no further questions. Furthermore, all questions were answered to the best of my ability. A copy of this discharge summary will be sent to the above providers to facilitate continuity of care. Today, I personally spent 55 minutes with Natanael, of which greater than 50% of the time was spent in patient education, counseling, and coordination of care as described above. Physical Exam General: Alert, In no apparent distress, Oriented x3, Moderate distress HEENT: Atraumatic, Normocephalic, PERRLA Neck: Supple, 2+ carotid pulse no bruit, JVD not distended Respiratory: Clear to auscultation bilaterally, Normal air movement Cardiovascular: No edema, Normal pulses, Regular rate/rhythm, Normal S1 S2 Capillary refill: <2 Seconds Gastrointestinal: Normal bowel sounds, Tenderness (RLQ) Musculoskeletal: No clubbing, No swelling, No contractures, No erythema Integumentary: No rashes, No breakdown Neurological: Normal speech, Normal strength at 5/5 x4 extr Vital Signs/Physical Exam: Temp Pulse Resp BP Pulse Ox 97.7 F 81 14 141/80 H 100 03/28/23 16:00 03/28/23 16:00 03/28/23 16:00 03/28/23 16:00 03/28/23 16:00 Laboratory Data at Discharge: WBC 5.80 thou/uL (4.3-10.9) 03/28/23 01:58 Hgb 12.3 g/dL (12.0-15.0) D 03/28/23 01:58 Hct 36.5 % (36.0-45.0) 03/28/23 01:58 Plt Count 303 thou/uL (152-406) 03/28/23 01:58 Sodium 137 mEq/L (136-145) 03/28/23 01:58 Potassium 3.0 mEq/L (3.5-5.1) L D 03/28/23 01:58 BUN 11 mg/dL (7-18) 03/28/23 01:58 Creatinine 1.01 mg/dL (0.55-1.02) 03/28/23 01:58 Glucose 88 mg/dL (74-106) 03/28/23 01:58 Phosphorus 3.2 mg/dL (2.5-4.9) 03/28/23 01:58 Magnesium 2.2 mg/dL (1.6-2.4) 03/28/23 01:58 Total Bilirubin 0.8 mg/dL (0.2-1.0) 03/27/23 08:35 AST 55 U/L (15-37) H 03/27/23 08:35 ALT 205 U/L (13-56) H 03/27/23 08:35 Alkaline Phosphatase 162 U/L (45-117) H 03/27/23 08:35 Triglycerides 240 mg/dL (<150) H 03/28/23 01:58 Cholesterol 211 mg/dL (<200) H 03/28/23 01:58 HDL Cholesterol 26 mg/dL (40-60) L 03/28/23 01:58 Cholesterol/HDL Ratio 8.12 03/28/23 01:58 Lipase 16 U/L (13-75) 03/27/23 08:35 Home Medications: Escitalopram Oxalate [Lexapro] 10 mg PO DAILY #30 tab 12/04/22 ALPRAZolam [Xanax*] 0.5 mg PO Q12HP PRN #30 tab 12/07/22 Amox/Clavulanate [Augmentin 875-125 Tab] 1 each PO BID #10 tab 12/07/22 Physician Discharge Instructions: 1. Follow up with PCP for medical management of anxiety/depression diagnosis 2. Follow up with Dr. Moeller for kidney stone management 3. Regular diet, as tolerated 4. No activity restrictions 5. return to the ED if symptoms return Diet: Regular Activity: Ad sherice Followup: Natacha BALBUENAOT [Primary Care Provider] - Tristan Moeller [ACTIVE - CAN ADMIT] - Time spent managing pt's care (in minutes): 55
--- NOTE | 2023-03-28 18:07 | P.PN ---
Subjective Date of Service: 03/28/23 Chief Complaint: Intractable Nausea vomiting 03/28: Natanael is feeling much better this morning, will advance diet to CLD. Urinating without complaints, afebrile, and RLQ pain is better. She was unable to tolerate regular diet, will monitor OVN. Review of Systems 10-point ROS is otherwise unremarkable Physical Examination - Vital Signs Temperature: 97.7 F Blood Pressure: 141/80 Pulse: 81 Respirations: 14 Pulse Ox (%): 100 Assessment And Plan - Plan Physical Exam General: Alert, In no apparent distress, Oriented x3, Moderate distress HEENT: Atraumatic, Normocephalic, PERRLA Neck: Supple, 2+ carotid pulse no bruit, JVD not distended Respiratory: Clear to auscultation bilaterally, Normal air movement Cardiovascular: No edema, Normal pulses, Regular rate/rhythm, Normal S1 S2 Capillary refill: <2 Seconds Gastrointestinal: Normal bowel sounds, Tenderness (RLQ) Musculoskeletal: No clubbing, No swelling, No contractures, No erythema Integumentary: No rashes, No breakdown Neurological: Normal speech, Normal strength at 5/5 x4 extr Problems Intractable nausea and vomiting fluid volume deficit Right 2-3 millimeter Renal calculus ADA likely from dehydration anxiety and depression Plan Intractable nausea and vomiting fluid volume deficit Right 2-3 millimeter Renal calculus IVF phenergan, scopalamine patch Morphine CT scan report "Stable nonobstructing right superior pole 2 -3 millimeter renal calculus. No other acute intra-abdominal process" Consult Urology Advance diet ADA likely from dehydration BUN/Creatinine 03/13.01 IVF anxiety and depression restart home medications Full code DVT ppx LOS 24 hours Discharge Plan: Home Plan to discharge in: 24 Hours Time Spent Managing PTS Care (In Minutes): 35
[2023-03-29] MEDS: HEPARIN 5000 UNIT/ML 1 ML VIAL SQ SCH ×2 (01:09→09:00)
[2023-03-29 03:10] LABS: Absolute Lymphocytes (CBC) 2.1 K/uL (0.7-4.9); Lymphocytes % 39.2 % (15.3-44.8); MCV 85.7 fL (80-100); MPV 7.4 fL (7.6-11.3); Platelets 307 thou/uL (152-406); RBC Red Blood Cell Count 3.74 M/uL (3.86-4.86)
[2023-03-29] MEDS: PROMETHAZINE INJ 25 MG/ML AMP IV PRN (04:18)
[2023-03-29 04:23] LABS: Magnesium 1.8 mg/dL (1.6-2.4); Phosphorus 2.7 mg/dL (2.5-4.9); Potassium 2.9 mEq/L (3.5-5.1)
[2023-03-29] MEDS: MORPHINE 2 MG/ML SYR IV PRN ×2 (05:35→11:18)
[2023-03-29] MEDS: NA CHLORIDE 0.9% 1,000 ML IV SCH (05:35)
[2023-03-29] MEDS ORDERED: NA CHLORIDE 0.9% 1,000 ML with POTASSIUM CL 40 MEQ IV SCH ×4 (06:05→07:30)
[2023-03-29] MEDS ORDERED: MAGNESIUM SULFATE 1 gm IVPB 1 GM/100 ML BAG IV ONE (06:07)
[2023-03-29 06:51] VITALS: BMI 24.1
[2023-03-29 08:04] VITALS: BP 133/80; TEMP 97.9
[2023-03-29] MEDS: SUCRALFATE 1GM/10ML UCUP FT SCH ×2 (08:06→11:19)
--- NOTE | 2023-03-29 11:12 | P.DS ---
Admission Date: 03/27/23 Discharge Date: 03/29/23 Disposition: ROUTINE DISCHARGE Discharge Condition: GOOD Reason for Admission: Intractable Nausea vomiting Brief History of Present Illness: 28-year-old female with past medical history of anxiety and depression, and kidney stones who presents to the ED complaining of 4 days of nausea vomiting, not tolerated any food or drink for a few days. She was complaining of right lower quadrant pain. Initial vitals 4 BP 135 / 108; Pulse 113; Resp 18; Temp 97; Pulse Ox 100%. Significant labs BUN/creatinine 13/1.34, sodium 134, potassium 3.5. While in the ED she was given morphine for pain, Benadryl for nausea, normal saline 1 L. Her nausea and vomiting did not improved. CT abdomen pelvis "Stable nonobstructing right superior pole 2 -3 millimeter renal calculus. No other acute intra-abdominal process". Patient was admitted for further management. Hospital Course: Diagnosis Intractable nausea and vomiting Dehydration Renal calculus ADA secondary to dehydration anxiety and depression Patient admitted to the medical floor and the following medical problems addressed: Intractable nausea and vomiting fluid volume deficit Right 2-3 millimeter Renal calculus Patient treated with supportive measures including IV fluid, antiemetics and analgesics as needed CT scan report "Stable nonobstructing right superior pole 2 -3 millimeter renal calculus. No other acute intra-abdominal process. No hydronephrosis Source also treated with sucralfate for possible gastritis. Patient's symptoms improved and tolerated diet advancement. She tolerated regular diet today. Patient's symptoms improved and deemed stable for discharge. Hypokalemia was replaced with IV and oral. UA suggested UTI, urine culture showed mixed growth. Patient is discharged with oral ciprofloxacin to continue treatment for UTI ADA likely from dehydration/hypokalemia ADA resolved with IV hydration Potassium was replaced IV and oral. She is discharged with oral potassium to continue replacement for hypokalemia. Anxiety and depression Resume home medications on discharge. Vital Signs/Physical Exam: Temp Pulse Resp BP Pulse Ox 97.9 F 87 18 133/80 100 03/29/23 08:00 03/29/23 08:00 03/29/23 08:00 03/29/23 08:00 03/29/23 08:00 General: Alert, In no apparent distress, Oriented x3 HEENT: Mucous membr. moist/pink Neck: Supple, JVD not distended Respiratory: Clear to auscultation bilaterally, Normal air movement Cardiovascular: No edema, Regular rate/rhythm, Normal S1 S2 Gastrointestinal: Non-distended Musculoskeletal: No swelling Integumentary: No rashes, No cyanosis Laboratory Data at Discharge: WBC 5.40 thou/uL (4.3-10.9) 03/29/23 02:26 Hgb 11.2 g/dL (12.0-15.0) L D 03/29/23 02:26 Hct 32.0 % (36.0-45.0) L 03/29/23 02:26 Plt Count 307 thou/uL (152-406) 03/29/23 02:26 Sodium 139 mEq/L (136-145) 03/29/23 02:26 Potassium 2.9 mEq/L (3.5-5.1) L 03/29/23 02:26 BUN 7 mg/dL (7-18) 03/29/23 02:26 Creatinine 0.70 mg/dL (0.55-1.02) 03/29/23 02:26 Glucose 92 mg/dL (74-106) 03/29/23 02:26 Phosphorus 2.7 mg/dL (2.5-4.9) 03/29/23 02:26 Magnesium 1.8 mg/dL (1.6-2.4) 03/29/23 02:26 Total Bilirubin 0.8 mg/dL (0.2-1.0) 03/27/23 08:35 AST 55 U/L (15-37) H 03/27/23 08:35 ALT 205 U/L (13-56) H 03/27/23 08:35 Alkaline Phosphatase 162 U/L (45-117) H 03/27/23 08:35 Triglycerides 240 mg/dL (<150) H 03/28/23 01:58 Cholesterol 211 mg/dL (<200) H 03/28/23 01:58 HDL Cholesterol 26 mg/dL (40-60) L 03/28/23 01:58 Cholesterol/HDL Ratio 8.12 03/28/23 01:58 Lipase 16 U/L (13-75) 03/27/23 08:35 Home Medications: ALPRAZolam [Xanax*] 0.5 mg PO Q12HP PRN #30 tab 12/07/22 Amox/Clavulanate [Augmentin 875-125 Tab*] 1 each PO BID #10 tab 12/07/22 Ciprofloxacin HCl [Cipro] 500 mg PO BID #10 tab 03/29/23 Escitalopram Oxalate [Lexapro] 10 mg PO DAILY #30 tab 03/29/23 Pantoprazole [Protonix Tab] 40 mg PO DAILY #30 tab 03/29/23 Potassium Chloride [Klor-Con] 40 meq PO Q6H #4 packet 03/29/23 New Medications: Ciprofloxacin HCl [Cipro] 500 mg PO BID #10 tab Potassium Chloride [Klor-Con] 40 meq PO Q6H #4 packet Escitalopram Oxalate [Lexapro] 10 mg PO DAILY #30 tab Pantoprazole [Protonix Tab] 40 mg PO DAILY #30 tab Physician Discharge Instructions: 1. Follow up with PCP for medical management of anxiety/depression diagnosis 2. Follow up with Dr. Moleler for kidney stone management 3. Regular diet, as tolerated 4. No activity restrictions 5. return to the ED if symptoms return Followup: SREE BALBUENA [Primary Care Provider] - 1-2 Weeks (Call for appointment.) Tristan Moeller [ACTIVE - CAN ADMIT] - 1-2 Weeks (Call for appointment.) Time spent managing pt's care (in minutes): 27
== END 2023-03-29 12:15 | disposition home or self-care (01) ==
LOC: ER 07:41 → 2ND 11:23
PROVIDERS: ADMIT Internal Medicine; ATTEND Internal Medicine
DX: R11.2 Nausea with vomiting, unspecified (principal); E86.0 Dehydration; N20.0 Calculus of kidney; N17.9 Acute kidney failure, unspecified; F41.9 Anxiety disorder, unspecified; F32.A Depression, unspecified; R10.31 Right lower quadrant pain; N39.0 Urinary tract infection, site not specified; Z11.52 Encounter for screening for COVID-19; Z88.8 Allergy status to other drugs, medicaments and biological substances
CPT/HCPCS: 0241U; 36415; 74177; 80048; 80053; 80061; 81001; 81025; 83690; 83735; 84100; 84439; 84443; 85025; 87086; 87088; 93005; 96374; 96375; 99285; G0378; J1200; J1630; J1644; J2270; J2550; J3475; J3480; J7030; Q9967

== ENCOUNTER 2023-04-08 09:10 | Emergency (ER) | payer SELFPAY ==
--- OUTSIDE RECORDS SUMMARY | 2023-04-08 09:36 | XMS REPORT | Continuity of Care Document ---
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 Medical morning Branch and 1 tablet in the evening. Take with meals. losartan 50 2023-0 Yes [id number] 50mg Take 1 [facility] mg tablet 4-26 tablet by ity o f 00:00: mouth in [place] [address] the Medical morning Branch and 1 tablet in the evening. carvediloL 2023-0 Yes [id number] 25mg Take 1 U nivers 25 mg 4-26 tablet by ity of tablet 00:00: mouth in [place] [address] the Medical morning Branch and 1 tablet in the evening. Take with meals. losartan 50 2023-0 Yes [id number] 50mg Take 1 [facility] mg tablet 4-26 tablet by ity o f 00:00: mouth in [place] 00 the Medical morning Branch and 1 tablet in the evening. carvediloL 2023-0 Yes [id number] 25mg Take 1 U nivers 25 mg 4-26 tablet by ity of tablet 00:00: mouth in [place] 00 the Medical morning Branch and 1 tablet in the evening. Take with meals. losartan 50 2023-0 Yes [id number] 50mg Take 1 [facility] mg tablet 4-26 tablet by ity o f 00:00: mouth in [place] 00 the Medical morning Branch and 1 tablet in the evening. carvediloL 2023-0 Yes [id number] 25mg Take 1 [facility] nivers 25 mg 4-26 tablet by ity of tablet 00:00: mouth in [place] 00 the Medical morning Branch and 1 tablet in the evening. Take with meals. losartan 50 2023-0 Yes [id number] 50mg Take 1 [facility] mg tablet 4-26 tablet by ity o f 00:00: mouth in [place] 00 the Medical [...] 00 :00 dose, On Medi yessi 1:1:1 [facility] ([facility] 07/31/22 at [facility]) 1944, [place] oral suspension 15 mL ketorolac 2022-0 2022- No 15mg 15 mg, Unive rs (TORADOL) 08-01 Slow IV ity of injection 00:15: 00:44 [place], [place] 15 mg 00 :00 ONCE, 1 Medical dose, On Branch e 07/31/22 at 1914, Routine ondansetron 2022-0 2022- No 4mg 4 mg, Slow [facility] (ZOFRAN 08-01 IV [place], ity of (PF)) 00:15: 00:46 ONCE, 1 [place] injection 4 00 :00 dose, On Medi yessi mg e Branch 07/31/22 at 1915, [place] famotidine 2022-0 2022- No 20mg 20 mg, Univ ers (PEPCID 08-01 Slow IV ity of (PF)) 00:15: 00:46 [place], [place] injection 00 :00 ONCE, 1 Medical 20 mg dose, On Branch 07/31/22 at 191, [place] ondansetron 2022-0 Yes [id number] 4mg Take 1 [facility] 4 mg 3-21 tablet by ity of disintegrat 00:00: mouth [place] ing tablet 00 every 8 Medica l (eight) Branch hours as needed for Nausea and Vomiting (N/V). sucralfate 2022-0 Yes [id number] 1g Take 1 U nivers 1 gram 3-21 tablet by ity of tablet 00:00: mouth [place] 00 before Medical meals and Branch at bedtime. ondansetron 2023-0 Yes [id number] 4mg Take 1 [facility] 4 mg 3-21 tablet by ity of disintegrat 00:00: mouth [place] ing tablet 00 every 8 Medica l (eight) Branch hours as needed for Nausea and Vomiting (N/V). sucralfate 2023-0 Yes [id number] 1g Take 1 U nivers 1 gram 3-21 tablet by ity of tablet 00:00: mouth [place] 00 before Medical meals and Branch at bedtime. ondansetron 2023-0 Yes [id number] 4mg Take 1 [facility] 4 mg 3-21 tablet by ity of disintegrat 00:00: mouth [place] ing tablet 00 every 8 Medica l (eight) Branch hours as needed for Nausea and Vomiting (N/V). sucralfate 2023-0 Yes [id number] 1g Take 1 U nivers 1 gram 3-21 tablet by ity of tablet 00:00: mouth [place] 00 before Medical meals and Branch at bedtime. ondansetron 2023-0 Yes [id number] 4mg Take 1 [facility] 4 mg 3-21 tablet by ity of disintegrat 00:00: mouth [place] ing tablet 00 every 8 Medica l (eight) Branch hours as needed for Nausea and Vomiting (N/V). sucralfate 2023-0 Yes [id number] 1g Take 1 U nivers 1 gram 3-21 tablet by ity of tablet 00:00: mouth [place] 00 before Medical meals and Branch at bedtime. ondansetron 2023-0 Yes [id number] 4mg Take 1 [facility] 4 mg 3-21 tablet by ity of disintegrat 00:00: mouth [place] ing tablet 00 every 8 Medica l (eight) Branch hours as needed for Nausea and Vomiting (N/V). sucralfate 2023-0 Yes [id number] 1g Take 1 U nivers 1 gram 3-21 tablet by ity of tablet 00:00: mouth [place] 00 before Medical meals and Branch at bedtime. ondansetron 2023-0 Yes [id number] 4mg Take 1 [facility] 4 mg 3-21 tablet by ity of disintegrat 00:00: mouth [place] ing tablet 00 every 8 Medica l (eight) Branch hours as needed for Nausea and Vomiting (N/V). sucralfate 2023-0 Yes [id number] 1g Take 1 U nivers 1 gram 3-21 tablet by ity of tablet 00:00: mouth [place] 00 before Medical meals and Branch at bedtime. ondansetron 2023-0 Yes [id number] 4mg Take 1 [facility] 4 mg 3-21 tablet by ity of disintegrat 00:00: mouth [place] ing tablet 00 every 8 Medica l (eight) Branch hours as needed for Nausea and Vomiting (N/V). sucralfate 2023-0 Yes [id number] 1g Take 1 U nivers 1 gram 3-21 tablet by ity of tablet 00:00: mouth [place] 00 before Medical meals and Branch at bedtime. ondansetron 2023-0 Yes [id number] 4mg Take 1 [facility] 4 mg 3-21 tablet by ity of disintegrat 00:00: mouth [place] ing tablet 00 every 8 Medica l (eight) Branch hours as needed for Nausea and Vomiting (N/V). sucralfate 2023-0 Yes [id number] 1g Take 1 U nivers 1 gram 3-21 tablet by ity of tablet 00:00: mouth [place] 00 before Medical meals and Branch at bedtime. ondansetron 2023-0 Yes [id number] 4mg Take 1 [facility] 4 mg 3-21 tablet by ity of disintegrat 00:00: mouth [place] ing tablet 00 every 8 Medica l (eight) Branch hours as needed for Nausea and Vomiting (N/V). sucralfate 2023-0 Yes [id number] 1g Take 1 U nivers 1 gram 3-21 tablet by ity of tablet 00:00: mouth [place] 00 before Medical meals and Branch at bedtime. ondansetron 2023-0 Yes [id number] 4mg Take 1 [facility] 4 mg 3-21 tablet by ity of disintegrat 00:00: mouth [place] ing tablet 00 every 8 Medica l (eight) Branch hours as needed for Nausea and Vomiting (N/V). sucralfate 2023-0 Yes [id number] 1g Take 1 U nivers 1 gram 3-21 tablet by ity of tablet 00:00: mouth [place] 00 before Medical meals and Branch at bedtime. ondansetron 2023-0 Yes [id number] 4mg Take 1 [facility] 4 mg 3-21 tablet by ity of disintegrat 00:00: mouth [place] ing tablet 00 every 8 Medica l (eight) Branch hours as needed for Nausea and Vomiting (N/V). sucralfate 2023-0 Yes [id number] 1g Take 1 U nivers 1 gram 3-21 tablet by ity of tablet 00:00: mouth [place] 00 before Medical meals and Branch at bedtime. ondansetron 2023-0 Yes [id number] 4mg Take 1 [facility] 4 mg 3-21 tablet by ity of disintegrat 00:00: mouth [place] ing tablet 00 every 8 Medica l (eight) Branch hours as needed for Nausea and Vomiting (N/V). sucralfate 2023-0 Yes [id number] 1g Take 1 U nivers 1 gram 3-21 tablet by ity of tablet 00:00: mouth [place] 00 before Medical meals and Branch at bedtime. ondansetron 2023-0 Yes [id number] 4mg Take 1 [facility] 4 mg 3-21 tablet by ity of disintegrat 00:00: mouth [place] ing tablet 00 every 8 Medica l (eight) Branch hours as needed for Nausea and Vomiting (N/V). sucralfate 2023-0 Yes [id number] 1g Take 1 U nivers 1 gram 3-21 tablet by ity of tablet 00:00: mouth [place] 00 before Medical meals and Branch at bedtime. ondansetron 2023-0 Yes [id number] 4mg Take 1 [facility] 4 mg 3-21 tablet by ity of disintegrat 00:00: mouth [place] ing tablet 00 every 8 Medica l (eight) Branch hours as needed for Nausea and Vomiting (N/V). sucralfate 2023-0 Yes [id number] 1g Take 1 U nivers 1 gram 3-21 tablet by ity of tablet 00:00: mouth [place] 00 before Medical meals and Branch at bedtime. ondansetron 2023-0 Yes [id number] 4mg Take 1 [facility] 4 mg 3-21 tablet by ity of disintegrat 00:00: mouth [place] ing tablet 00 every 8 Medica l (eight) Branch hours as needed for Nausea and Vomiting (N/V). sucralfate 2023-0 Yes [id number] 1g Take 1 U nivers 1 gram 3-21 tablet by ity of tablet 00:00: mouth [place] 00 before Medical meals and Branch at bedtime. ondansetron 2023-0 Yes [id number] 4mg Take 1 [facility] 4 mg 3-21 tablet by ity of disintegrat 00:00: mouth [place] ing tablet 00 every 8 Medica l (eight) Branch hours as needed for Nausea and Vomiting (N/V). sucralfate 2023-0 Yes [id number] 1g Take 1 U nivers 1 gram 3-21 tablet by ity of tablet 00:00: mouth [place] 00 before Medical meals and Branch at bedtime. ondansetron 2023-0 Yes [id number] 4mg Take 1 [facility] 4 mg 3-21 tablet by ity of disintegrat 00:00: mouth [place] ing tablet 00 every 8 Medica l (eight) Branch hours as needed for Nausea and Vomiting (N/V). sucralfate 2023-0 Yes [id number] 1g Take 1 U nivers 1 gram 3-21 tablet by ity of tablet 00:00: mouth [place] 00 before Medical meals and Branch at bedtime. ondansetron 2023-0 Yes [id number] 4mg Take 1 [facility] 4 mg 3-21 tablet by ity of disintegrat 00:00: mouth [place] ing tablet 00 every 8 Medica l (eight) Branch hours as needed for Nausea and Vomiting (N/V). sucralfate 2023-0 Yes [id number] 1g Take 1 U nivers 1 gram 3-21 tablet by ity of tablet 00:00: mouth [place] 00 before Medical meals and Branch at bedtime. pantoprazol 2023-0 2023- No [id number] 40mg Take 1 Univers e 40 mg EC 3-21 -05 tablet by ity of tablet 00:00: 04:59 mouth in [place] 00 :00 the Medical morning Branch for 14 days. pantoprazol 2023-0 2023- No [id number] 40mg Take 1 [facility] e 40 mg [...] tablet by ity o f 00:00: mouth. [place] [address] Medical Branch traMADoL 50 2023-0 Yes 50mg [...] o f 00:00: mouth. Medical Branch ibuprofen 2022-0 Yes [id number] 600mg Take 1 [facility] 600 mg 3-05 [id number] tablet by ity of tablet 00:00: mouth [place] 00 every 6 Medical (six) Branch hours as needed for Pain (scale 4-6). ibuprofen 2022-0 Yes [id number] 600mg Take 1 [facility] 600 mg 3-05 [id number] tablet by ity of tablet 00:00: mouth [place] 00 every 6 Medical (six) Branch hours as needed for Pain (scale 4-6). ibuprofen 2022-0 Yes [id number] 600mg Take 1 [facility] 600 mg 3-05 [id number] tablet by ity of tablet 00:00: mouth [place] 00 every 6 Medical (six) Branch hours as needed for Pain (scale 4-6). ibuprofen 2023-0 2023- No [id number] 600mg Take 1 [facility] 600 mg 3-05 -21 [id number] tablet by ity o f tablet 00:00: 00:00 mouth [place] 00 :00 every 6 Medical (six) Branch hours as needed for Pain (scale 4-6). citalopram 2022-0 Yes 10mg Take 1 Unive rs 10 mg 2-17 tablet by ity of tablet 00:00: mouth in [place] [address] the Medical morning. Branch QUEtiapine 2023-0 Yes [...] 600 mg 2-17 ity of tablet 00:00: [place] [address] Medical Branch citalopram 2023-0 Yes 10mg Take [...] [place] 00 Medical Branch methylPREDN 2023-0 Yes [id number] Take by Univers ISolone 2-11 mouth ity of (MEDROL, 00:00: SEE-INSTRU [place]ELA,) 4 mg 00 CTIONS. Medica l tablets follow Branch package directions methylPREDN 2023-0 Yes [id number] Take by [facility] ISolone 2-11 mouth ity of (MEDROL, 00:00: SEE-INSTRU [place],) 4 mg 00 CTIONS. Medica l tablets follow Branch package directions methylPREDN 2023-0 Yes [id number] Take by [facility] ISolone 2-11 mouth ity of (MEDROL, 00:00: SEE-INSTRU [place],) 4 mg 00 CTIONS. Medica l tablets follow Branch package directions methylPREDN 2023-0 Yes [id number] Take by [facility] ISolone 2-11 mouth ity of (MEDROL, 00:00: SEE-INSTRU [place],) 4 mg 00 CTIONS. Medica l tablets follow Branch package directions methylPREDN 2023-0 Yes [id number] Take by [facility] ISolone 2-11 mouth ity of (MEDROL, 00:00: SEE-INSTRU [place],) 4 mg 00 CTIONS. Medica l tablets follow Branch package directions methylPREDN 2023-0 Yes [id number] Take by [facility] ISolone 2-11 mouth ity of (MEDROL, 00:00: SEE-INSTRU [place],) 4 mg 00 CTIONS. Medica l tablets follow Branch package directions methylPREDN 2023-0 Yes [id number] Take by [facility] ISolone 2-11 mouth ity of (MEDROL, 00:00: SEE-INSTRU [place],) 4 mg 00 CTIONS. Medica l tablets follow Branch package directions methylPREDN 2023-0 Yes [id number] Take by [facility] ISolone 2-11 mouth ity of (MEDROL, 00:00: SEE-INSTRU [place],) 4 mg 00 CTIONS. Medica l tablets follow Branch package directions methylPREDN 2023-0 Yes [id number] Take by [facility] ISolone 2-11 mouth ity of (MEDROL, 00:00: SEE-INSTRU [place],) 4 mg 00 CTIONS. Medica l tablets follow Branch package directions methylPREDN 2023-0 Yes [id number] Take by [facility] ISolone 2-11 mouth ity of (MEDROL, 00:00: SEE-INSTRU [place],) 4 mg 00 CTIONS. Medica l tablets follow Branch package directions methylPREDN 2023-0 Yes [id number] Take by [facility] ISolone 2-11 mouth ity of (MEDROL, 00:00: SEE-INSTRU [place],) 4 mg 00 CTIONS. Medica l tablets follow Branch package directions methylPREDN 2023-0 Yes [id number] Take by Univers ISolone 2-11 mouth ity of (MEDROL, 00:00: SEE-INSTRU [place],) 4 mg 00 CTIONS. Medica l tablets follow Branch package directions methylPREDN Yes [id number] Take by [facility] ISolone 06-23 mouth ity of (MEDROL, 00:00: SEE-INSTRU [place],) 4 mg 00 CTIONS. Medica l tablets follow Branch package directions methylPREDN Yes [id number] Take by Univers ISolone 06-23 mouth ity of (MEDROL, 00:00: SEE-INSTRU [place],) 4 mg 00 CTIONS. Medica l tablets follow Branch package directions bromphenira 2022- No [id number] 5mL Take 5 mL Univers mine-pseudo 06-23 by mouth 4 i ty of ephedrine-D 00:00: 05:59 (four) [place] M (BROMFED 00 :00 times Medical DM) 2-30-10 daily as Bran ch mg/5 mL needed for syrup Cold symptoms for up to 10 days. methocarbam 2022- No [id number] 750mg Take 1 [facility] oL 750 mg 06-23 [id number] tablet by it y of tablet 00:00: [...] [place] butalbital- 2021-05- No 1{tbl} 1 tablet, [place] [facility] acetaminoph 07-06- Oral, ity of [...] 05/05/22 at 1315, Routine butalbital- 2021-05 Yes [id number] 1{tbl} Take 1 [facility] acetaminoph 2-24 tablet by ity of en-caff 00:00: mouth [place] 50-325-40 00 every 4 Medical mg tablet (four) Branch hours as needed for Pain (scale 7-10). butalbital- 2021-05 Yes [id number] 1{tbl} Take 1 [facility] acetaminoph 2-24 tablet by ity of en-caff 00:00: mouth [place] 50-325-40 00 every 4 Medical mg tablet (four) Branch hours as needed for Pain (scale 7-10). butalbital- 2021-05 Yes [id number] 1{tbl} Take 1 [facility] acetaminoph 2-24 tablet by ity of en-caff 00:00: mouth [place] 50-325-40 00 every 4 Medical mg tablet (four) Branch hours as needed for Pain (scale 7-10). butalbital- 2021-05 Yes [id number] 1{tbl} Take 1 [facility] acetaminoph 2-24 tablet by ity of en-caff 00:00: mouth [place] 50-325-40 00 every 4 Medical mg tablet (four) Branch hours as needed for Pain (scale 7-10). butalbital- 2021-05 Yes [id number] 1{tbl} Take 1 [facility] acetaminoph 2-24 tablet by ity of en-caff 00:00: mouth [place] 50-325-40 00 every 4 Medical mg tablet (four) Branch hours as needed for Pain (scale 7-10). butalbital- 2021-05 Yes [id number] 1{tbl} Take 1 [facility] acetaminoph 2-24 tablet by ity of en-caff 00:00: mouth [place] 50-325-40 00 every 4 Medical mg tablet (four) Branch hours as needed for Pain (scale 7-10). butalbital- 2021-05 Yes [id number] 1{tbl} Take 1 [facility] acetaminoph 2-24 tablet by ity of en-caff 00:00: mouth [place] 50-325-40 00 every 4 Medical mg tablet (four) Branch hours as needed for Pain (scale 7-10). butalbital- 2021-05 Yes [id number] 1{tbl} Take 1 [facility] acetaminoph 2-24 tablet by ity of en-caff 00:00: mouth [place] 50-325-40 00 every 4 Medical mg tablet (four) Branch hours as needed for Pain (scale 7-10). butalbital2021-05 Yes [id number] 1{tbl} Take 1 [facility] acetaminoph 2-24 tablet by ity of en-caff 00:00: mouth [place] 50-325-40 00 every 4 Medical mg tablet (four) Branch hours as needed for Pain (scale 7-10). butalbital- 2021-05 Yes [id number] 1{tbl} Take 1 [facility] acetaminoph 2-24 tablet by ity of en-caff 00:00: mouth [place] 50-325-40 00 every 4 Medical mg tablet (four) Branch hours as needed for Pain (scale 7-10). butalbital- 2021-05 Yes [id number] 1{tbl} Take 1 [facility] acetaminoph 2-24 tablet by ity of en-caff 00:00: mouth [place] 50-325-40 00 every 4 Medical mg tablet (four) Branch hours as needed for Pain (scale 7-10). butalbital- 2021-05 Yes [id number] 1{tbl} Take 1 [facility] acetaminoph 2-24 tablet by ity of en-caff 00:00: mouth [place] 50-325-40 00 every 4 Medical mg tablet (four) Branch hours as needed for Pain (scale 7-10). butalbital- 2021-05 Yes [id number] 1{tbl} Take 1 [facility] acetaminoph 2-24 tablet by ity of en-caff 00:00: mouth [place] 50-325-40 00 every 4 Medical mg tablet (four) Branch hours as needed for Pain (scale 7-10). butalbital- 2021-05 Yes [id number] 1{tbl} Take 1 [facility] acetaminoph 2-24 tablet by ity of en-caff 00:00: mouth [place] 50-325-40 00 every 4 Medical mg tablet (four) Branch hours as needed for Pain (scale 7-10). butalbital- 2021-05 Yes [id number] 1{tbl} Take 1 [facility] acetaminoph 2-24 tablet by ity of en-caff 00:00: mouth [place] 50-325-40 00 every 4 Medical mg tablet (four) Branch hours as needed for Pain (scale 7-10). butalbital2021-05 Yes [id number] 1{tbl} Take 1 [facility] acetaminoph 2-24 tablet [...] No 25mg 25 mg, Uni vers MINE 2- 12-15 Oral, ity of (BENADRYL) 15:45: 15:53 ONCE, 1 [place] tablet 25 00 :00 dose, On Medica l mg [facility] Branch 04/26/22 at 0945, [place] NaCl 0.9% [...] :00 dose, On Medi yessi mg [facility] Branch 04/26/22 at 0845, Routine cephALEXin 2021-05- No [id number] 500mg Take 1 Univers (KEFLEX) 06-27 capsule [...] needed for Nausea and Vomiting (N/V). ondansetron 2022-1 Yes 4mg Take 1 Univ ers (ZOFRAN) [...] Nausea and Vomiting (N/V). galcanezuma 2021-05 Yes [id number] 120mg inject 120 Univers b-gnlm 1-28 mg under ity of prefilled 00:00: [place] (EMGALITY) 00 once every Med ical subcutaneou month. Branch s injection galcanezuma 2021-05 Yes [id number] 120mg inject 120 [facility] b-gnlm 1-28 mg under ity of prefilled 00:00: the [place] (EMGALITY) 00 once every Med ical subcutaneou month. Branch s injection galcanezuma 2021-05 Yes [id number] 120mg inject 120 [facility] b-gnlm 1-28 mg under ity of prefilled 00:00: the [place] (EMGALITY) 00 once every Med ical subcutaneou month. Branch s injection galcanezuma 2021-05 Yes [id number] 120mg inject 120 [facility] b-gnlm 1-28 mg under ity of prefilled 00:00: the [place] (EMGALITY) 00 once every Med ical subcutaneou month. Branch s injection galcanezuma 2021-05 Yes [id number] 120mg inject 120 [facility] b-gnlm 1-28 mg under ity of prefilled 00:00: the [place] (EMGALITY) 00 once every Med ical subcutaneou month. Branch s injection galcanezuma 2021-05 Yes [id number] 120mg inject 120 [facility] b-gnlm 1-28 mg under ity of prefilled 00:00: the [place] (EMGAL[place]) 00 once every Med ical subcutaneou month. Branch s injection galcanezuma 2021-05 Yes [id number] 120mg inject 120 [facility] b-gnlm 1-28 mg under ity of prefilled 00:00: the [place] (EMGALITY) 00 once every Med ical subcutaneou month. Branch s injection galcanezuma 2021-05 Yes [id number] 120mg inject 120 [facility] b-gnlm 1-28 mg under ity of prefilled 00:00: the [place] (EMGALITY) 00 once every Med ical subcutaneou month. Branch s injection galcanezuma 2021-05 Yes [id number] 120mg inject 120 [facility] b-gnlm 1-28 mg under ity of prefilled 00:00: the [place] (EMGALITY) 00 once every Med ical subcutaneou month. Branch s injection galcanezuma 2021-05 Yes [id number] 120mg inject 120 [facility] b-gnlm 1-28 mg under ity of prefilled 00:00: the [place] (EMGALITY) 00 once every Med ical subcutaneou month. Branch s injection galcanezuma 2021-05 Yes [id number] 120mg inject 120 [facility] b-gnlm 1-28 mg under ity of prefilled 00:00: the [place] (EMGALITY) 00 once every Med ical subcutaneou month. Branch s injection galcanezuma 2021-05 Yes [id number] 120mg inject 120 [facility] b-gnlm 1-28 mg under ity of prefilled 00:00: the [place] (EMGALITY) 00 once every Med ical subcutaneou month. Branch s injection galcanezuma 2021-05 Yes [id number] 120mg inject 120 [facility] b-gnlm 1-28 mg under ity of prefilled 00:00: the [place] (EMGALITY) 00 once every Med ical subcutaneou month. Branch s injection galcanezuma 2021-05 Yes [id number] 120mg inject 120 [facility] b-gnlm 1-28 mg under ity of prefilled 00:00: the [place] (EMGALITY) 00 once every Med ical subcutaneou month. Branch s injection galcanezuma 2021-05 Yes [id number] 120mg inject 120 [facility] b-gnlm 1-28 mg under ity of prefilled 00:00: the [place] (EMGALITY) 00 once every Med ical subcutaneou month. Branch s injection galcanezuma 2021-05 Yes [id number] 120mg inject 120 [facility] b-gnlm 1-28 mg under ity of prefilled 00:00: the [place] (EMGALITY) 00 once every Med ical subcutaneou month. Branch s injection galcanezuma 2021-05 Yes [id number] 120mg inject 120 [facility] b-gnlm 1-28 mg under ity of prefilled 00:00: the [place] (EMGALITY) 00 once every Med ical subcutaneou month. Branch s injection galcanezuma 2021-05 Yes [id number] 120mg inject 120 [facility] b-gnlm 1-28 mg under ity of prefilled 00:00: the [place] (EMGALITY) 00 once every Med ical subcutaneou month. Branch s injection galcanezuma 2021-05 Yes [id number] 120mg inject 120 [facility] b-gnlm 1-28 mg under ity of prefilled 00:00: the [place] (EMGALITY) 00 once every Med ical subcutaneou month. Branch s injection galcanezuma 2021-05 Yes [id number] 120mg inject 120 [facility] b-gnlm 1-28 mg under ity of prefilled 00:00: the [place] (EMGALITY) 00 once every Med ical subcutaneou month. Branch s injection galcanezuma 2021-05 Yes [id number] 120mg inject 120 [facility] b-gnlm 1-28 mg under ity of prefilled 00:00: the [place] (EMGALITY) 00 once every Med ical subcutaneou month. Branch s injection galcanezuma 2021-05 Yes [id number] 120mg inject 120 [facility] b-gnlm 1-28 mg under ity of prefilled 00:00: the [place] (EMGALITY) 00 once every Med ical subcutaneou month. Branch s injection galcanezuma 2021-05 Yes [id number] 120mg inject 120 [facility] b-gnlm 1-28 mg under ity of prefilled 00:00: the [place] (EMGALITY) 00 once every Med ical subcutaneou month. Branch s injection galcanezuma 2021-05 Yes [id number] 120mg inject 120 [facility] b-gnlm 1-28 mg under ity of prefilled 00:00: the [place] (EMGALITY) 00 once every Med ical subcutaneou month. Branch s injection galcanezuma 2021-05 Yes [id number] 120mg inject 120 [facility] b-gnlm 1-28 mg under ity of prefilled 00:00: the [place] (EMGALITY) 00 once every Med ical subcutaneou month. Branch s injection galcanezuma 2021-05 Yes [id number] 120mg inject 120 [facility] b-gnlm 1-28 mg under ity of prefilled 00:00: the [place] (EMGAL[place]) 00 once every Med ical subcutaneou month. Branch s injection galcanezuma 2021-05 Yes [id number] 120mg inject 120 [facility] b-gnlm 1-28 mg under ity of prefilled 00:00: the [place] (EMGALITY) 00 once every Med ical subcutaneou month. Branch s injection galcanezuma 2021-05 Yes [id number] 120mg inject 120 [facility] b-gnlm 1-28 mg under ity of prefilled 00:00: the [place] (EMGALITY) 00 once every Med ical subcutaneou month. Branch s injection galcanezuma 2021-05 Yes [id number] 120mg inject 120 [facility] b-gnlm 1-28 mg under ity of prefilled 00:00: the [place] (EMGALITY) 00 once every Med ical subcutaneou month. Branch s injection galcanezuma 2021-05 Yes [id number] 120mg inject 120 [facility] b-gnlm 1-28 mg under ity of prefilled 00:00: the [place] (EMGALITY) 00 once every Med ical subcutaneou month. Branch s injection galcanezuma 2021-05 Yes [id number] 120mg inject 120 [facility] b-gnlm 1-28 mg under [facility] [place]EM[place] 00 once every Med ical subcutaneou month. Branch s injection galcanezuma 2021-05 Yes [id number] 120mg inject 120 [facility] b-gnlm 1-28 mg under [facility]y [facility] prefilled 00:[place]: [place] (EMGALITY[place] 00 once every Med ical subcutaneou month. Branch s injection galcanezuma 2021-05 Yes [id number] 120mg inject 120 [facility] b-gnlm 1-28 mg under [facility]y of prefilled 00:[place]: [place] (EMGALITY[place] 00 once every Med ical subcutaneou month. Branch s injection galcanezuma 2021-05 Yes [id number] 120mg inject 120 [facility] b-gnlm 1-28 mg [...] dose, On Medica l tablet 1 Sat [place] tablet 04/07/22 at 1830, Routine diphenhydrA 2021-05- No 12.5mg 12.5 mg, Univers MINE 06-07 Slow IV ity of (BENADRYL) 23:45: 23:46 Push, [place] injection 00 :00 ONCE, 1 Medical 12.5 [...] 13 :00 Medical Branch rizatriptan 2021-05 Yes [id number] 10mg Take 1 [facility] 10 mg 1-12 tablet by ity of tablet 00:00: mouth as [place] 00 needed for Medical Migraine. Branch May repeat in 2 hours if needed Butalbital- 2021-05 Yes [id number] 1{capsu Take 1 [facility] Acetaminoph 1-12 le} [...] daily. Indication s: headache rizatriptan 2021-05 Yes [id number] 10mg Take 1 [facility] 10 mg 1-12 tablet by ity of tablet 00:00: mouth as [place] 00 needed for Medical Migraine. Branch May repeat in 2 hours if needed Butalbital- 2021-05 Yes [id number] 1{capsu Take 1 [facility] Acetaminoph 1-12 le} [...] daily. Indication s: headache rizatriptan 2021-05 Yes [id number] 10mg Take 1 [facility] 10 mg 1-12 tablet by ity of tablet 00:00: mouth as [place] 00 needed for Medical Migraine. Branch May repeat in 2 hours if needed Butalbital- 2021-05 Yes [id number] 1{capsu Take 1 [facility] Acetaminoph 1-12 le} [...] daily. Indication s: headache rizatriptan 2021-05 Yes [id number] 10mg Take 1 [facility] 10 mg 1-12 tablet by ity of tablet 00:00: mouth as [place] 00 needed for Medical Migraine. Branch May repeat in 2 hours if needed Butalbital- 2021-05 Yes [id number] 1{capsu Take 1 [facility] Acetaminoph 1-12 le} capsule by it y of en-Caff 00:00: mouth [place] (FIORICET) 00 every 6 Medica l 50-300-40 (six) Branch mg per hours as capsule needed for Other (headache) . rizatriptan 2021-05 Yes [id number] 10mg Take 1 [facility] 10 mg 1-12 tablet by ity of tablet 00:00: mouth as [place] 00 needed for Medical Migraine. Branch May repeat in 2 hours if needed Butalbital- 2021-05 Yes [id number] 1{capsu Take 1 [facility] Acetaminoph 1-12 le} capsule by it y of en-Caff 00:00: mouth [place] (FIORICET) 00 every 6 Medica l 50-300-40 (six) Branch mg per hours as capsule needed for Other (headache) . rizatriptan 2021-05 Yes [id number] 10mg Take 1 [facility] 10 mg 1-12 tablet by ity of tablet 00:00: mouth as [place] 00 needed for Medical Migraine. Branch May repeat in 2 hours if needed Butalbital- 2021-05 Yes [id number] 1{capsu Take 1 [facility] Acetaminoph 1-12 le} capsule by it y of en-Caff 00:00: mouth [place] (FIORICET) 00 every 6 Medica l 50-300-40 (six) Branch mg per hours as capsule needed for Other (headache) . rizatriptan 2021-05 Yes [id number] 10mg Take 1 [facility] 10 mg 1-12 tablet by ity of tablet 00:00: mouth as [place] 00 needed for Medical Migraine. Branch May repeat in 2 hours if needed Butalbital- 2021-05 Yes [id number] 1{capsu Take 1 [facility] Acetaminoph 1-12 le} capsule by it y of en-Caff 00:00: mouth [place] (FIORICET) 00 every 6 Medica l 50-300-40 (six) Branch mg per hours as capsule needed for Other (headache) . rizatriptan 2021-05 Yes [id number] 10mg Take 1 [facility] 10 mg 1-12 tablet by ity of tablet 00:00: mouth as [place] 00 needed for Medical Migraine. Branch May repeat in 2 hours if needed Butalbital- 2021-05 Yes [id number] 1{capsu Take 1 [facility] Acetaminoph 1-12 le} capsule by it y of en-Caff 00:00: mouth [place] (FIORICET) 00 every 6 Medica l 50-300-40 (six) Branch mg per hours as capsule needed for Other (headache) . rizatriptan 2021-05 Yes [id number] 10mg Take 1 [facility] 10 mg 1-12 tablet by ity of tablet 00:00: mouth as [place] 00 needed for Medical Migraine. Branch May repeat in 2 hours if needed Butalbital- 2021-05 Yes [id number] 1{capsu Take 1 [facility] Acetaminoph 1-12 le} capsule by it y of en-Caff 00:00: mouth [place] (FIORICET) 00 every 6 Medica l 50-300-40 (six) Branch mg per hours as capsule needed for Other (headache) . rizatriptan 2021-05 Yes [id number] 10mg Take 1 [facility] 10 mg 1-12 tablet by ity of tablet 00:00: mouth as [place] 00 needed for Medical Migraine. Branch May repeat in 2 hours if needed Butalbital- 2021-05 Yes [id number] 1{capsu Take 1 [facility] Acetaminoph 1-12 le} capsule by it y of en-Caff 00:00: mouth [place] (FIORICET) 00 every 6 Medica l 50-300-40 (six) Branch mg per hours as capsule needed for Other (headache) . rizatriptan 2021-05 Yes [id number] 10mg Take 1 [facility] 10 mg 1-12 tablet by ity of tablet 00:00: mouth as [place] 00 needed for Medical Migraine. Branch May repeat in 2 hours if needed Butalbital- 2021-05 Yes [id number] 1{capsu Take 1 [facility] Acetaminoph 1-12 le} capsule by it y of en-Caff 00:00: mouth [place] (FIORICET) 00 every 6 Medica l 50-300-40 (six) Branch mg per hours as capsule needed for Other (headache) . rizatriptan 2021-05 Yes [id number] 10mg Take 1 [facility] 10 mg 1-12 tablet by ity of tablet 00:00: mouth as [place] 00 needed for Medical Migraine. Branch May repeat in 2 hours if needed Butalbital- 2021-05 Yes [id number] 1{capsu Take 1 [facility] Acetaminoph 1-12 le} capsule by it y of en-Caff 00:00: mouth [place] (FIORICET) 00 every 6 Medica l 50-300-40 (six) Branch mg per hours as capsule needed for Other (headache) . rizatriptan 2021-05 Yes [id number] 10mg Take 1 [facility] 10 mg 1-12 tablet by ity of tablet 00:00: mouth as [place] 00 needed for Medical Migraine. Branch May repeat in 2 hours if needed Butalbital- 2021-05 Yes [id number] 1{capsu Take 1 [facility] Acetaminoph 1-12 le} capsule by it y of en-Caff 00:00: mouth [place] (FIORICET) 00 every 6 Medica l 50-300-40 (six) Branch mg per hours as capsule needed for Other (headache) . rizatriptan 2021-05 Yes [id number] 10mg Take 1 [facility] 10 mg 1-12 tablet by ity of tablet 00:00: mouth as [place] 00 needed for Medical Migraine. Branch May repeat in 2 hours if needed Butalbital- 2021-05 Yes [id number] 1{capsu Take 1 [facility] Acetaminoph 1-12 le} capsule by it y of en-Caff 00:00: mouth [place] (FIORICET) 00 every 6 Medica l 50-300-40 (six) Branch mg per hours as capsule needed for Other (headache) . rizatriptan 2021-05 Yes [id number] 10mg Take 1 [facility] 10 mg 1-12 tablet by ity of tablet 00:00: mouth as [place] 00 needed for Medical Migraine. Branch May repeat in 2 hours if needed Butalbital- 2021-05 Yes [id number] 1{capsu Take 1 [facility] Acetaminoph 1-12 le} capsule by it y of en-Caff 00:00: mouth [place] (FIORICET) 00 every 6 Medica l 50-300-40 (six) Branch mg per hours as capsule needed for Other (headache) . rizatriptan 2021-05 Yes [id number] 10mg Take 1 [facility] 10 mg 1-12 tablet by ity of tablet 00:00: mouth as [place] 00 needed for Medical Migraine. Branch May repeat in 2 hours if needed Butalbital- 2021-05 Yes [id number] 1{capsu Take 1 [facility] Acetaminoph 1-12 le} capsule by it y of en-Caff 00:00: mouth [place] (FIORICET) 00 every 6 Medica l 50-300-40 (six) Branch mg per hours as capsule needed for Other (headache) . rizatriptan 2021-05 Yes [id number] 10mg Take 1 [facility] 10 mg 1-12 tablet by ity of tablet 00:00: mouth as [place] 00 needed for Medical Migraine. Branch May repeat in 2 hours if needed Butalbital- 2021-05 Yes [id number] 1{capsu Take 1 [facility] Acetaminoph 1-12 le} capsule by it y of en-Caff 00:00: mouth [place] (FIORICET) 00 every 6 Medica l 50-300-40 (six) Branch mg per hours as capsule needed for Other (headache) . rizatriptan 2021-05 Yes [id number] 10mg Take 1 [facility] 10 mg 1-12 tablet by ity of tablet 00:00: mouth as [place] 00 needed for Medical Migraine. Branch May repeat in 2 hours if needed Butalbital- 2021-05 Yes [id number] 1{capsu Take 1 [facility] Acetaminoph 1-12 le} capsule by it y of en-Caff 00:00: mouth [place] (FIORICET) 00 every 6 Medica l 50-300-40 (six) Branch mg per hours as capsule needed for Other (headache) . rizatriptan 2021-05 Yes [id number] 10mg Take 1 [facility] 10 mg 1-12 tablet by ity of tablet 00:00: mouth as [place] 00 needed for Medical Migraine. Branch May repeat in 2 hours if needed Butalbital- 2021-05 Yes [id number] 1{capsu Take 1 [facility] Acetaminoph 1-12 le} capsule by it y of en-Caff 00:00: mouth [place] (FIORICET) 00 every 6 Medica l 50-300-40 (six) Branch mg per hours as capsule needed for Other (headache) . rizatriptan 2021-05 Yes [id number] 10mg Take 1 [facility] 10 mg 1-12 tablet by ity of tablet 00:00: mouth as [place] 00 needed for Medical Migraine. Branch May repeat in 2 hours if needed Butalbital- 2021-05 Yes [id number] 1{capsu Take 1 [facility] Acetaminoph 1-12 le} capsule by it y of en-Caff 00:00: mouth [place] (FIORICET) 00 every 6 Medica l 50-300-40 (six) Branch mg per hours as capsule needed for Other (headache) . rizatriptan 2021-05 Yes [id number] 10mg Take 1 [facility] 10 mg 1-12 tablet by ity of tablet 00:00: mouth as [place] 00 needed for Medical Migraine. Branch May repeat in 2 hours if needed Butalbital- 2021-05 Yes [id number] 1{capsu Take 1 [facility] Acetaminoph 1-12 le} capsule by it y of en-Caff 00:00: mouth [place] (FIORICET) 00 every 6 Medica l 50-300-40 (six) Branch mg per hours as capsule needed for Other (headache) . rizatriptan 2021-05 Yes [id number] 10mg Take 1 [facility] 10 mg 1-12 tablet by ity of tablet 00:00: mouth as [place] 00 needed for Medical Migraine. Branch May repeat in 2 hours if needed Butalbital- 2021-05 Yes [id number] 1{capsu Take 1 [facility] Acetaminoph 1-12 le} capsule by it y of en-Caff 00:00: mouth [place] (FIORICET) 00 every 6 Medica l 50-300-40 (six) Branch mg per hours as capsule needed for Other (headache) . rizatriptan 2021-05 Yes [id number] 10mg Take 1 [facility] 10 mg 1-12 tablet by ity of tablet 00:00: mouth as [place] 00 needed for Medical Migraine. Branch May repeat in 2 hours if needed Butalbital- 2021-05 Yes [id number] 1{capsu Take 1 [facility] Acetaminoph 1-12 le} capsule by it y of en-Caff 00:00: mouth [place] (FIORICET) 00 every 6 Medica l 50-300-40 (six) Branch mg per hours as capsule needed for Other (headache) . rizatriptan 2021-05 Yes [id number] 10mg Take 1 [facility] 10 mg 1-12 tablet by ity of tablet 00:00: mouth as [place] 00 needed for Medical Migraine. Branch May repeat in 2 hours if needed Butalbital- 2021-05 Yes [id number] 1{capsu Take 1 [facility] Acetaminoph 1-12 le} capsule by it y of en-Caff 00:00: mouth [place] (FIORICET) 00 every 6 Medica l 50-300-40 (six) Branch mg per hours as capsule needed for Other (headache) . rizatriptan 2021-05 Yes [id number] 10mg Take 1 [facility] 10 mg 1-12 tablet by ity of tablet 00:00: mouth as [place] 00 needed for Medical Migraine. Branch May repeat in 2 hours if needed Butalbital- 2021-05 Yes [id number] 1{capsu Take 1 [facility] Acetaminoph 1-12 le} capsule by it y of en-Caff 00:00: mouth [place] (FIORICET) 00 every 6 Medica l 50-300-40 (six) Branch mg per hours as capsule needed for Other (headache) . rizatriptan 2021-05 Yes [id number] 10mg Take 1 [facility] 10 mg 1-12 tablet by ity of tablet 00:00: mouth as [place] 00 needed for Medical Migraine. Branch May repeat in 2 hours if needed Butalbital- 2021-05 Yes [id number] 1{capsu Take 1 [facility] Acetaminoph 1-12 le} capsule by it y of en-Caff 00:00: mouth [place] (FIORICET) 00 every 6 Medica l 50-300-40 (six) Branch mg per hours as capsule needed for Other (headache) . rizatriptan 2021-05 Yes [id number] 10mg Take 1 [facility] 10 mg 1-12 tablet by ity of tablet 00:00: mouth as [place] 00 needed for Medical Migraine. Branch May repeat in 2 hours if needed Butalbital- 2021-05 Yes [id number] 1{capsu Take 1 [facility] Acetaminoph 1-12 le} capsule by it y of en-Caff 00:00: mouth [place] (FIORICET) 00 every 6 Medica l 50-300-40 (six) Branch mg per hours as capsule needed for Other (headache) . rizatriptan 2021-05 Yes [id number] 10mg Take 1 [facility] 10 mg 1-12 tablet by ity of tablet 00:00: mouth as [place] 00 needed for Medical Migraine. Branch May repeat in 2 hours if needed Butalbital- 2021-05 Yes [id number] 1{capsu Take 1 [facility] Acetaminoph 1-12 le} capsule by it y of en-Caff 00:00: mouth [place] (FIORICET) 00 every 6 Medica l 50-300-40 (six) Branch mg per hours as capsule needed for Other (headache) . rizatriptan 2021-05 Yes [id number] 10mg Take 1 [facility] 10 mg 1-12 tablet by ity of tablet 00:00: mouth as [place] 00 needed for Medical Migraine. Branch May repeat in 2 hours if needed Butalbital- 2021-05 Yes [id number] 1{capsu Take 1 [facility] Acetaminoph 1-12 le} capsule by it y of en-Caff 00:00: mouth [place] (FIORICET) 00 every 6 Medica l 50-300-40 (six) Branch mg per hours as capsule needed for Other (headache) . rizatriptan 2021-05 Yes [id number] 10mg Take 1 [facility] 10 mg 1-12 tablet by ity of tablet 00:00: mouth as [place] 00 needed for Medical Migraine. Branch May repeat in 2 hours if needed Butalbital- 2021-05 Yes [id number] 1{capsu Take 1 [facility] Acetaminoph 1-12 le} capsule by it y of en-Caff 00:00: mouth [place] (FIORICET) 00 every 6 Medica l 50-300-40 (six) Branch mg per hours as capsule needed for Other (headache) . rizatriptan 2021-05 Yes [id number] 10mg Take 1 [facility] 10 mg 1-12 tablet by ity of tablet 00:00: mouth as [place] 00 needed for Medical Migraine. Branch May repeat in 2 hours if needed Butalbital- 2021-05 Yes [id number] 1{capsu Take 1 [facility] Acetaminoph 1-12 le} capsule by it y of en-Caff 00:00: mouth [place] (FIORICET) 00 every 6 Medica l 50-300-40 (six) Branch mg per hours as capsule needed for Other (headache) . rizatriptan 2021-05 Yes [id number] 10mg Take 1 [facility] 10 mg 1-12 tablet by ity of tablet 00:00: mouth as [place] 00 needed for Medical Migraine. Branch May repeat in 2 hours if needed Butalbital- 2021-05 Yes [id number] 1{capsu Take 1 [facility] Acetaminoph 1-12 le} capsule by it y of en-Caff 00:00: mouth [place] (FIORICET) 00 every 6 Medica l 50-300-40 (six) Branch mg per hours as capsule needed for Other (headache) . rizatriptan 2021-05 Yes [id number] 10mg Take 1 [facility] 10 mg 1-12 tablet by ity of tablet 00:00: mouth as [place] 00 needed for Medical Migraine. Branch May repeat in 2 hours if needed Butalbital- 2021-05 Yes [id number] 1{capsu Take 1 [facility] Acetaminoph 1-12 le} capsule by it y of en-Caff 00:00: mouth [place] (FIORICET) 00 every 6 Medica l 50-300-40 (six) Branch mg per hours as capsule needed for Other (headache) . rizatriptan 2021-05 Yes [id number] 10mg Take 1 [facility] 10 mg 1-12 tablet by ity of tablet 00:00: mouth as [place] 00 needed for Medical Migraine. Branch May repeat in 2 hours if needed Butalbital- 2021-05 Yes [id number] 1{capsu Take 1 [facility] Acetaminoph 1-12 le} capsule by it y of en-Caff 00:00: mouth [place] (FIORICET) 00 every 6 Medica l 50-300-40 (six) Branch mg per hours as capsule needed for Other (headache) . rizatriptan 2021-05 Yes [id number] 10mg Take 1 [facility] 10 mg 1-12 tablet by ity of tablet 00:00: mouth as [place] 00 needed for Medical Migraine. Branch May repeat in 2 hours if needed Butalbital- 2021-05 Yes [id number] 1{capsu Take 1 [facility] Acetaminoph 1-12 le} capsule by it y of en-Caff 00:00: mouth [place] (FIORICET) 00 every 6 Medica l 50-300-40 (six) Branch mg per hours as capsule needed for Other (headache) . rizatriptan 2021-05 Yes [id number] 10mg Take 1 [facility] 10 mg 1-12 tablet by ity of tablet 00:00: mouth as [place] 00 needed for Medical Migraine. Branch May repeat in 2 hours if needed Butalbital- 2021-05 Yes [id number] 1{capsu Take 1 [facility] Acetaminoph 1-12 le} capsule by it y of en-Caff 00:00: mouth [place] (FIORICET) 00 every 6 Medica l 50-300-40 (six) Branch mg per hours as capsule needed for Other (headache) . rizatriptan 2021-05 Yes [id number] 10mg Take 1 [facility] 10 mg 1-12 tablet by ity of tablet 00:00: mouth as [place] 00 needed for Medical Migraine. Branch May repeat in 2 hours if needed Butalbital- 2021-05 Yes [id number] 1{capsu Take 1 [facility] Acetaminoph 1-12 le} capsule by it y of en-Caff 00:00: mouth [place] (FIORICET) 00 every 6 Medica l 50-300-40 (six) Branch mg per hours as capsule needed for Other (headache) . rizatriptan 2021-05 Yes [id number] 10mg Take 1 [facility] 10 mg 1-12 tablet by ity of tablet 00:00: mouth as [place] 00 needed for Medical Migraine. Branch May repeat in 2 hours if needed Butalbital- 2021-05 Yes [id number] 1{capsu Take 1 [facility] Acetaminoph 1-12 le} capsule by it y of en-Caff 00:00: mouth [place] (FIORICET) 00 every 6 Medica l 50-300-40 (six) Branch mg per hours as capsule needed for Other (headache) . rizatriptan 2021-05 Yes [id number] 10mg Take 1 [facility] 10 mg 1-12 tablet by ity of tablet 00:00: mouth as [place] 00 needed for Medical Migraine. Branch May repeat in 2 hours if needed Butalbital- 2021-05 Yes [id number] 1{capsu Take 1 [facility] Acetaminoph 1-12 le} [...] 100mg in a 24 hour period. SUMAtriptan 2-1 Yes 50mg Take 1 Univ ers 50 [...] 100mg in a 24 hour period. SUMAtriptan 2-1 Yes 50mg Take 1 Univ ers 50 [...] Medical 50 mcg dose, On Branch [facility] 03/15/22 at 1030, Routine proMETHazin 2021-05 No 25mg 25 mg, Uni vers e 05-15 Oral, ity of (PHENERGAN) 14:45: 14:55 ONCE, 1 [place] 25 00 :00 dose, On Medica l mg [facility] 03/15/22 at 0945, [place] FENTanyl PF 2021-05 No 50ug 50 mcg, Un sushant (SUBLIMAZE 05-15 Slow IV ity o f (PF)) 14:45: 13:58 Push, [place] injection 00 :00 ONCE, 1 Medical 50 mcg dose, On Branch [facility] 03/15/22 at 0945, Routine ondansetron 2021-05 No 4mg 4 mg, Slow [facility] (ZOFRAN 05-15 IV [place], ity of (PF)) 14:00: 13:58 ONCE, 1 [place] injection 4 00 :00 dose, On Medi yessi mg [facility] 03/15/22 at 0900, [place] ondansetron 2021-05 Yes [id number] 4mg Take 1 [facility] 4 mg 05-15 tablet by ity of disintegrat 00:00: mouth [place] ing tablet 00 every 8 Medica l (eight) Branch hours as needed for Nausea and Vomiting (N/V). ketorolac 2021-05 Yes [id number] 10mg Take 1 U nivers 10 mg 1-03 tablet by ity of tablet 00:00: mouth [place] 00 every 6 Medical (six) Branch hours as needed for Pain (scale 7-10). proMETHazin 2021-05 Yes [id number] 25mg Take 1 Univers e 25 mg 1-03 tablet by ity of tablet 00:00: mouth [place] 00 every 6 Medical (six) Branch hours as needed for N/V unresponsi ve to Ondansetro n. ondansetron 2021-05 Yes [id number] 4mg Take 1 [facility] 4 mg 1-03 tablet by ity of disintegrat 00:00: mouth [place] ing tablet 00 every 8 Medica l (eight) Branch hours as needed for Nausea and Vomiting (N/V). ketorolac 2021-05 Yes [id number] 10mg Take 1 U nivers 10 mg 1-03 tablet by ity of tablet 00:00: mouth [place] 00 every 6 Medical (six) Branch hours as needed for Pain (scale 7-10). proMETHazin 2021-05 Yes [id number] 25mg Take 1 Univers e 25 mg 1-03 tablet by ity of tablet 00:00: mouth [place] 00 every 6 Medical (six) Branch hours as needed for N/V unresponsi ve to Ondansetro n. carvediloL 2021-05 Yes [id number] 25mg Take 1 U nivers 25 mg 1-03 tablet by ity of tablet 00:00: mouth in [place] 00 the Medical morning Branch and 1 tablet in the evening. Take with meals. ondansetron 2021-05 Yes [id number] 4mg Take 1 [facility] 4 mg 1-03 tablet by ity of disintegrat 00:00: mouth [place] ing tablet 00 every 8 Medica l (eight) Branch hours as needed for Nausea and Vomiting (N/V). ketorolac 2021-05 Yes [id number] 10mg Take 1 U nivers 10 mg 1-03 tablet by ity of tablet 00:00: mouth [place] 00 every 6 Medical (six) Branch hours as needed for Pain (scale 7-10). proMETHazin 2021-05 Yes [id number] 25mg Take 1 Univers e 25 mg 1-03 tablet by ity of tablet 00:00: mouth [place] 00 every 6 Medical (six) Branch hours as needed for N/V unresponsi ve to Ondansetro n. carvediloL 2021-05 Yes [id number] 25mg Take 1 U nivers 25 mg 1-03 tablet by ity of tablet 00:00: mouth in [place] 00 the Medical morning Branch and 1 tablet in the evening. Take with meals. ondansetron 2021-05 Yes [id number] 4mg Take 1 [facility] 4 mg 1-03 tablet by ity of disintegrat 00:00: mouth [place] ing tablet 00 every 8 Medica l (eight) Branch hours as needed for Nausea and Vomiting (N/V). ketorolac 2021-05 Yes [id number] 10mg Take 1 U nivers 10 mg 1-03 tablet by ity of tablet 00:00: mouth [place] 00 every 6 Medical (six) Branch hours as needed for Pain (scale 7-10). proMETHazin 2021-05 Yes [id number] 25mg Take 1 Univers e 25 mg 1-03 tablet by ity of tablet 00:00: mouth [place] 00 every 6 Medical (six) Branch hours as needed for N/V unresponsi ve to Ondansetro n. carvediloL 2021-05 Yes [id number] 25mg Take 1 U nivers 25 mg 1-03 tablet by ity of tablet 00:00: mouth in [place] 00 the Medical morning Branch and 1 tablet in the evening. Take with meals. ondansetron 2021-05 Yes [id number] 4mg Take 1 [facility] 4 mg 1-03 tablet by ity of disintegrat 00:00: mouth [place] ing tablet 00 every 8 Medica l (eight) Branch hours as needed for Nausea and Vomiting (N/V). ketorolac 2021-05 Yes [id number] 10mg Take 1 U nivers 10 mg 1-03 tablet by ity of tablet 00:00: mouth [place] 00 every 6 Medical (six) Branch hours as needed for Pain (scale 7-10). proMETHazin 2021-05 Yes [id number] 25mg Take 1 Univers e 25 mg 1-03 tablet by ity of tablet 00:00: mouth [place] 00 every 6 Medical (six) Branch hours as needed for N/V unresponsi ve to Ondansetro n. carvediloL 2021-05 Yes [id number] 25mg Take 1 U nivers 25 mg 1-03 tablet by ity of tablet 00:00: mouth in [place] 00 the Medical morning Branch and 1 tablet in the evening. Take with meals. ondansetron 2021-05 Yes [id number] 4mg Take 1 [facility] 4 mg 1-03 tablet by ity of disintegrat 00:00: mouth [place] ing tablet 00 every 8 Medica l (eight) Branch hours as needed for Nausea and Vomiting (N/V). ketorolac 2021-05 Yes [id number] 10mg Take 1 U nivers 10 mg 1-03 tablet by ity of tablet 00:00: mouth [place] 00 every 6 Medical (six) Branch hours as needed for Pain (scale 7-10). proMETHazin 2021-05 Yes [id number] 25mg Take 1 Univers e 25 mg 1-03 tablet by ity of tablet 00:00: mouth [place] 00 every 6 Medical (six) Branch hours as needed for N/V unresponsi ve to Ondansetro n. carvediloL 2021-05 Yes [id number] 25mg Take 1 U nivers 25 mg 1-03 tablet by ity of tablet 00:00: mouth in [place] 00 the Medical morning Branch and 1 tablet in the evening. Take with meals. ondansetron 2021-05 Yes [id number] 4mg Take 1 [facility] 4 mg 1-03 tablet by ity of disintegrat 00:00: mouth [place] ing tablet 00 every 8 Medica l (eight) Branch hours as needed for Nausea and Vomiting (N/V). ketorolac 2021-05 Yes [id number] 10mg Take 1 U nivers 10 mg 1-03 tablet by ity of tablet 00:00: mouth [place] 00 every 6 Medical (six) Branch hours as needed for Pain (scale 7-10). proMETHazin 2021-05 Yes [id number] 25mg Take 1 Univers e 25 mg 1-03 tablet by ity of tablet 00:00: mouth [place] 00 every 6 Medical (six) Branch hours as needed for N/V unresponsi ve to Ondansetro n. carvediloL 2021-05 Yes [id number] 25mg Take 1 U nivers 25 mg 1-03 tablet by ity of tablet 00:00: mouth in [place] 00 the Medical morning Branch and 1 tablet in the evening. Take with meals. ondansetron 2021-05 Yes [id number] 4mg Take 1 [facility] 4 mg 1-03 tablet by ity of disintegrat 00:00: mouth [place] ing tablet 00 every 8 Medica l (eight) Branch hours as needed for Nausea and Vomiting (N/V). ketorolac 2021-05 Yes [id number] 10mg Take 1 U nivers 10 mg 1-03 tablet by ity of tablet 00:00: mouth [place] 00 every 6 Medical (six) Branch hours as needed for Pain (scale 7-10). proMETHazin 2021-05 Yes [id number] 25mg Take 1 Univers e 25 mg 1-03 tablet by ity of tablet 00:00: mouth [place] 00 every 6 Medical (six) Branch hours as needed for N/V unresponsi ve to Ondansetro n. carvediloL 2021-05 Yes [id number] 25mg Take 1 U nivers 25 mg 1-03 tablet by ity of tablet 00:00: mouth in [place] 00 the Medical morning Branch and 1 tablet in the evening. Take with meals. ondansetron 2021-05 Yes [id number] 4mg Take 1 [facility] 4 mg 1-03 tablet by ity of disintegrat 00:00: mouth [place] ing tablet 00 every 8 Medica l (eight) Branch hours as needed for Nausea and Vomiting (N/V). ketorolac 2021-05 Yes [id number] 10mg Take 1 U nivers 10 mg 1-03 tablet by ity of tablet 00:00: mouth [place] 00 every 6 Medical (six) Branch hours as needed for Pain (scale 7-10). proMETHazin 2021-05 Yes [id number] 25mg Take 1 Univers e 25 mg 1-03 tablet by ity of tablet 00:00: mouth [place] 00 every 6 Medical (six) Branch hours as needed for N/V unresponsi ve to Ondansetro n. carvediloL 2021-05 Yes [id number] 25mg Take 1 U nivers 25 mg 1-03 tablet by ity of tablet 00:00: mouth in [place] 00 the Medical morning Branch and 1 tablet in the evening. Take with meals. ondansetron 2021-05 Yes [id number] 4mg Take 1 [facility] 4 mg 1-03 tablet by ity of disintegrat 00:00: mouth [place] ing tablet 00 every 8 Medica l (eight) Branch hours as needed for Nausea and Vomiting (N/V). ketorolac 2021-05 Yes [id number] 10mg Take 1 [facility] 10 mg 1-03 tablet by ity of tablet 00:00: mouth [place] 00 every 6 Medical (six) Branch hours as needed for Pain (scale 7-10). proMETHazin 2021-05 Yes [id number] 25mg Take 1 [facility] e 25 mg 1-03 tablet by ity of tablet 00:00: mouth [place] 00 every 6 Medical (six) Branch hours as needed for N/V unresponsi ve to Ondansetro n. carvediloL 2021-05 Yes [id number] 25mg Take 1 [facility] 25 mg 1-03 tablet by ity of tablet 00:00: mouth in [place] 00 the Medical morning Branch and 1 tablet in the evening. Take with meals. carvediloL 2021-05 Yes [id number] 25mg Take 1 [facility] 25 mg 1-03 tablet by ity of tablet 00:00: mouth in [place] 00 the Medical morning Branch and 1 tablet in the evening. Take with meals. carvediloL 2021-05 Yes [id number] 25mg Take 1 [facility] 25 mg 1-03 tablet by ity of tablet 00:00: mouth in [place] 00 the Medical morning Branch and 1 tablet in the evening. Take with meals. carvediloL 2021-05 Yes [id number] 25mg Take 1 [facility] 25 mg 1-03 tablet by ity of tablet 00:00: mouth in [place] 00 the Medical morning Branch and 1 tablet in the evening. Take with meals. carvediloL 2021-05 Yes [id number] 25mg Take 1 [facility] 25 mg 1-03 tablet by ity of tablet 00:00: mouth in [place] 00 the Medical morning Branch and 1 tablet in the evening. Take with meals. carvediloL 2021-05 Yes [id number] 25mg Take 1 [facility] 25 mg 1-03 tablet by ity of tablet 00:00: mouth in [place] 00 the Medical morning Branch and 1 tablet in the evening. Take with meals. carvediloL 2021-05 Yes [id number] 25mg Take 1 [facility] 25 mg 1-03 tablet by ity of tablet 00:00: mouth in [place] [address] the Medical morning Branch and 1 tablet in the evening. Take with meals. carvediloL 2021-05 Yes [id number] 25mg Take 1 [facility] 25 mg 1-03 tablet by ity of tablet 00:00: mouth in [place] 00 the Medical morning Branch and 1 tablet in the evening. Take with meals. carvediloL 2021-05 Yes [id number] 25mg Take 1 [facility] 25 mg 1-03 tablet by ity of tablet 00:00: mouth in [place] 00 the Medical morning Branch and 1 tablet in the evening. Take with meals. carvediloL 2021-05 Yes [id number] 25mg Take 1 [facility] 25 mg 1-03 tablet by ity of tablet 00:00: mouth in [place] 00 the Medical morning Branch and 1 tablet in the evening. Take with meals. carvediloL 2021-05 Yes [id number] 25mg Take 1 [facility] 25 mg 1-03 tablet by ity of tablet 00:00: mouth in [place] 00 the Medical morning Branch and 1 tablet in the evening. Take with meals. carvediloL 2021-05 Yes [id number] 25mg Take 1 [facility] 25 mg 1-03 tablet by ity of tablet 00:00: mouth in [place] [address] the Medical morning Branch and 1 tablet in the evening. Take with meals. carvediloL 2021-05 Yes [id number] 25mg Take 1 [facility] 25 mg 1-03 tablet by ity of tablet 00:00: mouth in [place] [address] the Medical morning Branch and 1 tablet in the evening. Take with meals. carvediloL 2021-05 Yes [id number] 25mg Take 1 [facility] 25 mg 1-03 tablet by ity of tablet 00:00: mouth in [place] [address] the Medical morning Branch and 1 tablet in the evening. Take with meals. carvediloL 2021-05 Yes [id number] 25mg Take 1 [facility] n[facility] 25 mg 1-03 tablet by ity of tablet 00:00: mouth in [place] 00 the Medical morning Branch and 1 tablet in the evening. Take with meals. carvediloL 2021-05 Yes [id number] 25mg Take 1 [facility] 25 mg 1-03 tablet by ity of tablet 00:00: mouth in [place] [address] the Medical morning [place] and 1 tablet in the evening. Take with meals. carvediloL 2021-05 Yes [id number] 25mg Take 1 [facility] n[facility] 25 mg 1-03 tablet by ity of tablet 00:00: mouth in [place] [address] the [facility] morning [place] and 1 tablet in the evening. Take with meals. carvediloL 2021-05 Yes [id number] 25mg Take 1 [facility] nivers 25 mg 1-03 tablet by ity of tablet 00:00: mouth in [place] [address] the [facility] and 1 tablet in the evening. Take with meals. carvediloL 2021-05 Yes [id number] 25mg Take 1 [facility] n[facility] 25 mg 1-03 tablet by ity of tablet 00:00: mouth in [place] [address] the [facility] and 1 tablet in the evening. Take with meals. carvediloL 2021-05 Yes [id number] 25mg Take 1 [facility] nivers 25 mg 1-03 tablet by ity of tablet 00:00: mouth in [address] and 1 tablet in the evening. Take with meals. carvediloL 2021-05 Yes [id number] 25mg Take 1 [facility] n[facility] 25 mg 1-03 tablet by ity of tablet 00:00: mouth in [address] and 1 tablet in the evening. Take with meals. carvediloL 2021-05 Yes [id number] 25mg Take 1 [facility] 25 mg 1-03 tablet by ity of tablet 00:00: mouth in [address] and 1 tablet in the evening. Take with meals. carvediloL 2021-05- No [id number] 25mg Take 1 [facility] 25 mg 1-03 04-26 tablet by ity of tablet 00:00: 00:00 mouth in [place] 00 :00 the [facility] and 1 tablet in the evening. Take with meals. carvediloL 2021-05- No [id number] 25mg Take 1 [facility] 25 mg 1-03 04-26 tablet by ity of tablet 00:00: 00:00 mouth in [place] 00 :00 the [facility] and 1 tablet in the evening. Take with meals. ondansetron 2021-05- No [id number] 4mg Take 1 [facility] 4 mg 1-03 11-26 tablet by ity of disintegrat 00:00: 00:[place] 00 :00 every 8 Medica l (eight) Branch hours as needed for Nausea and Vomiting (N/V). ketorolac 2021-05- No [id number] 10mg Take 1 [facility] 10 mg 05-15 tablet by ity of tablet 00:00: 00:00 mouth [place] 00 :00 every 6 Medical (six) Branch hours as needed for Pain (scale 7-10). proMETHazin 2021-05- No [id number] 25mg Take 1 [facility] e 25 mg 05-15 tablet by ity of tablet 00:00: 00:00 mouth [place] 00 :00 every 6 Medical (six) Branch hours as needed for N/V unresponsi ve to Ondansetro n. cephALEXin 2021-05- No [id number] 500mg Take 1 [facility] 500 mg 05-15 capsule by ity of capsule 00:00: 05:59 mouth 4 [place] 00 :00 (four) Medical times Branch daily for 3 days. cephALEXin 2021-05- No [id number] 500mg Take 1 [facility] 500 mg 05-15 capsule by ity of capsule 00:00: 05:59 mouth 4 [place] 00 :00 (four) Medical times Branch daily for 3 days. cephALEXin 2021-05- No [id number] 500mg Take 1 [facility] 500 mg 05-15 capsule by ity of capsule 00:00: 05:59 mouth 4 [place] 00 :00 (four) Medical times Branch daily for 3 days. predniSONE 2021-05- No [id number] 20mg Take 1 [facility] 20 mg 003-15 tablet by ity of tablet 00:00: 04:59 mouth in [place] 00 :00 the Medical morning Branch for 2 days. methocarbam 2021-05- No 500mg 500 mg, U nivers oL 0-30 10-30 Oral, ity of (ROBAXIN) 16:45: 17:08 ONCE, 1 [place] :[place] dose, On Medic al mg [facility] 03/11/22 at 1200, [place] dexamethaso 2021-05- No 10mg 10 mg, Uni vers ne sod phos 0-30 10-30 Slow IV ity of PF 16:00: 16:00 Push, [place] injection 00 :00 ONCE, 1 Medical 10 mg dose, On Branch [place] 03/11/22 at 1100, 1 mL diphenhydrA 2021-05 No 25mg 25 mg, Uni vers MINE 0-30 10-30 Slow IV ity of (BENADRYL) 15:46: 16:00 Push, [place] injection 00 :00 ONCE, 1 Medical 25 mg dose, On [facility] 03/11/22 at 1100, STAT NaCl 0.9% 2021-05 No 1000mL at 999 Uni vers (NS) IV 0-30 10-30 mL/hr, ity of infusion 15:45: 16:04 [place] 1,000 mL 00 :00 s, ONCE, 1 Medic al dose, On [facility] 03/11/22 at 1045, Routine butalbital- [...] 00 :00 ONCE, 1 Medical dose, On [facility] 03/11/22 at 0945, [place] proMETHazin 2021-05 No 12.5mg 12.5 mg, Univers e 0-30 10-30 IV ity of (PHENERGAN) 14:45: 15:04 Piggyback, [place] 12.5 mg in 00 :00 ONCE, 1 Medica l NaCl 0.9% dose, On Branch (NS) 50 mL Sun IV 03/11/22 piggyback at 0945, [place] proMETHazin 2021-05 Yes [id number] 25mg Take 1 [facility] e 25 mg 0-30 tablet by ity of tablet 00:00: mouth [place] 00 every 6 Medical (six) Branch hours as needed for Nausea and Vomiting (N/V). methocarbam 2021-05 Yes [id number] 500mg Take 1 [facility] oL 500 mg 0-30 tablet by ity o f tablet 00:00: mouth 3 [place] 00 (three) Medical times Branch daily as needed for Pain (scale 7-10). proMETHazin 2021-05 Yes [id number] 25mg Take 1 [facility] e 25 mg 0-30 tablet by ity of tablet 00:00: mouth [place] 00 every 6 Medical (six) Branch hours as needed for Nausea and Vomiting (N/V). methocarbam 2021-05 Yes [id number] 500mg Take 1 [facility] oL 500 mg 0-30 tablet by ity o f tablet 00:00: mouth 3 [place] 00 (three) Medical times Branch daily as needed for Pain (scale 7-10). proMETHazin 2021-05 Yes [id number] 25mg Take 1 [facility] e 25 mg 0-30 tablet by ity of tablet 00:00: mouth [place] 00 every 6 Medical (six) Branch hours as needed for Nausea and Vomiting (N/V). methocarbam 2021-05 Yes [id number] 500mg Take 1 [facility] oL 500 mg 0-30 tablet by ity o f tablet 00:00: mouth 3 00 (three) Medical times Branch daily as needed for Pain (scale 7-10). proMETHazin 2021-05 Yes [id number] 25mg Take 1 [facility] e 25 mg 0-30 tablet by ity of tablet 00:00: mouth [place] 00 every 6 Medical (six) Branch hours as needed for Nausea and Vomiting (N/V). methocarbam 2021-05 Yes [id number] 500mg Take 1 [facility] oL 500 mg 0-30 tablet by ity o f tablet 00:00: mouth 3 00 (three) Medical times Branch daily as needed for Pain (scale 7-10). proMETHazin 2021-05 Yes [id number] 25mg Take 1 [facility] e 25 mg 0-30 tablet by ity of tablet 00:00: mouth [place] 00 every 6 Medical (six) Branch hours as needed for Nausea and Vomiting (N/V). methocarbam 2021-05 Yes [id number] 500mg Take 1 [facility] oL 500 mg 0-30 tablet by ity o f tablet 00:00: mouth 3 [place] 00 (three) Medical times Branch daily as needed for Pain (scale 7-10). proMETHazin 2021-05 Yes [id number] 25mg Take 1 [facility] e 25 mg 0-30 tablet by ity of tablet 00:00: mouth [place] 00 every 6 Medical (six) Branch hours as needed for Nausea and Vomiting (N/V). methocarbam 2021-05 Yes [id number] 500mg Take 1 [facility] oL 500 mg 0-30 tablet by ity o f tablet 00:00: mouth 3 [place] 00 (three) Medical times Branch daily as needed for Pain (scale 7-10). proMETHazin 2021-05 Yes [id number] 25mg Take 1 [facility] e 25 mg 0-30 tablet by ity of tablet 00:00: mouth [place] 00 every 6 Medical (six) Branch hours as needed for Nausea and Vomiting (N/V). methocarbam 2021-05 Yes [id number] 500mg Take 1 [facility] oL 500 mg 0-30 tablet by ity o f tablet 00:00: mouth 3 00 (three) Medical times Branch daily as needed for Pain (scale 7-10). proMETHazin 2021-05 Yes [id number] 25mg Take 1 [facility] e 25 mg 0-30 tablet by ity of tablet 00:00: mouth [place] 00 every 6 Medical (six) Branch hours as needed for Nausea and Vomiting (N/V). methocarbam 2021-05 Yes [id number] 500mg Take 1 [facility] oL 500 mg 0-30 tablet by ity o f tablet 00:00: mouth 3 00 (three) Medical times Branch daily as needed for Pain (scale 7-10). proMETHazin 2021-05 Yes [id number] 25mg Take 1 [facility] e 25 mg 0-30 tablet by ity of tablet 00:00: mouth [place] 00 every 6 Medical (six) Branch hours as needed for Nausea and Vomiting (N/V). methocarbam 2021-05 Yes [id number] 500mg Take 1 [facility] oL 500 mg 0-30 tablet by ity o f tablet 00:00: mouth 3 00 (three) Medical times Branch daily as needed for Pain (scale 7-10). proMETHazin 2021-05 Yes [id number] 25mg Take 1 [facility] e 25 mg 0-30 tablet by ity of tablet 00:00: mouth [place] 00 every 6 Medical (six) Branch hours as needed for Nausea and Vomiting (N/V). methocarbam 2021-05 Yes [id number] 500mg Take 1 [facility] oL 500 mg 0-30 tablet by ity o f tablet 00:00: mouth 3 [place] 00 (three) Medical times Branch daily as needed for Pain (scale 7-10). proMETHazin 2021-05 Yes [id number] 25mg Take 1 [facility] e 25 mg 0-30 tablet by ity of tablet 00:00: mouth [place] 00 every 6 Medical (six) Branch hours as needed for Nausea and Vomiting (N/V). methocarbam 2021-05 Yes [id number] 500mg Take 1 [facility] oL 500 mg 0-30 tablet by ity o f tablet 00:00: mouth 3 [place] 00 (three) Medical times Branch daily as needed for Pain (scale 7-10). proMETHazin 2021-05 Yes [id number] 25mg Take 1 [facility] e 25 mg 0-30 tablet by ity of tablet 00:00: mouth [place] 00 every 6 Medical (six) Branch hours as needed for Nausea and Vomiting (N/V). proMETHazin 2021-05 Yes [id number] 25mg Take 1 [facility] e 25 mg 0-30 tablet by ity of tablet 00:00: mouth [place] 00 every 6 Medical (six) Branch hours as needed for Nausea and Vomiting (N/V). proMETHazin 2021-05 Yes [id number] 25mg Take 1 [facility] e 25 mg 0-30 tablet by ity of tablet 00:00: mouth [place] 00 every 6 Medical (six) Branch hours as needed for Nausea and Vomiting (N/V). proMETHazin 2021-05 Yes [id number] 25mg Take 1 [facility] e 25 mg 0-30 tablet by ity of tablet 00:00: mouth [place] 00 every 6 Medical (six) Branch hours as needed for Nausea and Vomiting (N/V). proMETHazin 2021-05 Yes [id number] 25mg Take 1 [facility] e 25 mg 0-30 tablet by ity of tablet 00:00: mouth [place] 00 every 6 Medical (six) Branch hours as needed for Nausea and Vomiting (N/V). proMETHazin 2021-05 Yes [id number] 25mg Take 1 [facility] e 25 mg 0-30 tablet by ity of tablet 00:00: mouth [place] 00 every 6 Medical (six) Branch hours as needed for Nausea and Vomiting (N/V). proMETHazin 2021-05 Yes [id number] 25mg Take 1 [facility] e 25 mg 0-30 tablet by ity of tablet 00:00: mouth [place] 00 every 6 Medical (six) Branch hours as needed for Nausea and Vomiting (N/V). proMETHazin 2021-05 Yes [id number] 25mg Take 1 [facility] e 25 mg 0-30 tablet by ity of tablet 00:00: mouth [place] 00 every 6 Medical (six) Branch hours as needed for Nausea and Vomiting (N/V). proMETHazin 2021-05 Yes [id number] 25mg Take 1 [facility] e 25 mg 0-30 tablet by ity of tablet 00:00: mouth [place] 00 every 6 Medical (six) Branch hours as needed for Nausea and Vomiting (N/V). proMETHazin 2021-05 Yes [id number] 25mg Take 1 [facility] e 25 mg 0-30 tablet by ity of tablet 00:00: mouth [place] 00 every 6 Medical (six) Branch hours as needed for Nausea and Vomiting (N/V). proMETHazin 2021-05 Yes [id number] 25mg Take 1 [facility] e 25 mg 0-30 tablet by ity of tablet 00:00: mouth [place] 00 every 6 Medical (six) Branch hours as needed for Nausea and Vomiting (N/V). proMETHazin 2021-05 Yes [id number] 25mg Take 1 [facility] e 25 mg 0-30 tablet by ity of tablet 00:00: mouth [place] 00 every 6 Medical (six) Branch hours as needed for Nausea and Vomiting (N/V). proMETHazin 2021-05 Yes [id number] 25mg Take 1 [facility] e 25 mg 0-30 tablet by ity of tablet 00:00: mouth [place] 00 every 6 Medical (six) Branch hours as needed for Nausea and Vomiting (N/V). proMETHazin 2021-05 Yes [id number] 25mg Take 1 [facility] e 25 mg 0-30 tablet by ity of tablet 00:00: mouth [place] 00 every 6 Medical (six) Branch hours as needed for Nausea and Vomiting (N/V). proMETHazin 2021-05 Yes [id number] 25mg Take 1 [facility] e 25 mg 0-30 tablet by ity of tablet 00:00: mouth [place] 00 every 6 Medical (six) Branch hours as needed for Nausea and Vomiting (N/V). proMETHazin 2021-05 Yes [id number] 25mg Take 1 [facility] e 25 mg 0-30 tablet by ity of tablet 00:00: mouth [place] 00 every 6 Medical (six) Branch hours as needed for Nausea and Vomiting (N/V). proMETHazin 2021-05 Yes [id number] 25mg Take 1 [facility] e 25 mg 0-30 tablet by ity of tablet 00:00: mouth [place] 00 every 6 Medical (six) Branch hours as needed for Nausea and Vomiting (N/V). proMETHazin 2021-05- No [id number] 25mg Take 1 Univers e 25 mg 0-30 03-21 tablet by ity of tablet 00:00: 00:00 mouth [place] 00 :00 every 6 Medical (six) Branch hours as needed for Nausea and Vomiting (N/V). methocarbam 2021-05- No [id number] 500mg Take 1 [facility] oL 500 mg 0-30 11-26 tablet by ity of tablet 00:00: 00:00 mouth 3 [place] 00 :00 (three) Medical times Branch daily as needed for Pain (scale 7-10). topiramate 2021-05 Yes [id number] 100mg Take 4 [facility] 25 mg 0-21 tablets by ity of tablet 00:00: mouth in [place] 00 the Medical morning. Branch topiramate 2021-05 Yes [id number] 100mg Take 4 [facility] 25 mg 0-21 tablets by ity of tablet 00:00: mouth in [place] 00 the Medical morning. Branch topiramate 2021-05 Yes [id number] 100mg Take 4 [facility] 25 mg 0-21 tablets by ity of tablet 00:00: mouth in [place] 00 the Medical morning. [place] topiramate 2021-05 Yes [id number] 100mg Take 4 [facility] 25 mg 0-21 tablets by ity of tablet 00:00: mouth in [place] 00 the Medical morning. Branch topiramate 2021-05 Yes [id number] 100mg Take 4 [facility] 25 mg 0-21 tablets by ity of tablet 00:00: mouth in [place] 00 the Medical morning. Branch topiramate 2021-05 Yes [id number] 100mg Take 4 [facility] 25 mg 0-21 tablets by ity of tablet 00:00: mouth in [place] 00 the Medical morning. Branch topiramate 2021-05 Yes [id number] 100mg Take 4 [facility] 25 mg 0-21 tablets by ity of tablet 00:00: mouth in [place] 00 the Medical morning. Branch topiramate 2022-1 Yes [id number] 100mg Take 4 [facility] 25 mg 0-21 tablets by ity of tablet 00:00: mouth in [place] 00 the Medical morning. Branch topiramate 2-1 Yes [id number] 100mg Take 4 [facility] 25 mg 0-21 tablets by ity of tablet 00:00: mouth in [place] 00 the Medical morning. Branch topiramate 2021-1 Yes [id number] 100mg Take 4 [facility] 25 mg 0-21 tablets by ity of tablet 00:00: mouth in [place] 00 the Medical morning. Branch topiramate 2-1 Yes [id number] 100mg Take 4 [facility] 25 mg 0-21 tablets by ity of tablet 00:00: mouth in [place] 00 the Medical morning. Branch topiramate 2-1 Yes [id number] 100mg Take 4 [facility] 25 mg 0-21 tablets by ity of tablet 00:00: mouth in [place] 00 the Medical morning. Branch topiramate 2021-1 Yes [id number] 100mg Take 4 [facility] 25 mg 0-21 tablets by ity of tablet 00:00: mouth in [place] 00 the Medical morning. Branch topiramate 2021-1 Yes [id number] 100mg Take 4 [facility] 25 mg 0-21 tablets by ity of tablet 00:00: mouth in [place] 00 the Medical morning. Branch topiramate 2-1 Yes [id number] 100mg Take 4 [facility] 25 mg 0-21 tablets by ity of tablet 00:00: mouth in [place] 00 the Medical morning. Branch topiramate 2-1 Yes [id number] 100mg Take 4 [facility] 25 mg 0-21 tablets by ity of tablet 00:00: mouth in [place] 00 the Medical morning. Branch topiramate 2-1 Yes [id number] 100mg Take 4 [facility] 25 mg 0-21 tablets by ity of tablet 00:00: mouth in [place] 00 the Medical morning. Branch topiramate 2-1 Yes [id number] 100mg Take 4 [facility] 25 mg 0-21 tablets by ity of tablet 00:00: mouth in [place] 00 the Medical morning. Branch topiramate 2-1 Yes [id number] 100mg Take 4 [facility] 25 mg 0-21 tablets by ity of tablet 00:00: mouth in [place] 00 the Medical morning. Branch topiramate 2-1 Yes [id number] 100mg Take 4 [facility] 25 mg 0-21 tablets by ity of tablet 00:00: mouth in [place] 00 the Medical morning. Branch topiramate 2021-1 Yes [id number] 100mg Take 4 [facility] 25 mg 0-21 tablets by ity of tablet 00:00: mouth in [place] 00 the Medical morning. Branch topiramate 2021-1 Yes [id number] 100mg Take 4 [facility] 25 mg 0-21 tablets by ity of tablet 00:00: mouth in [place] 00 the Medical morning. Branch topiramate 2021-1 Yes [id number] 100mg Take 4 [facility] 25 mg 0-21 tablets by ity of tablet 00:00: mouth in [place] 00 the Medical morning. Branch topiramate 2021-1 Yes [id number] 100mg Take 4 [facility] 25 mg 0-21 tablets by ity of tablet 00:00: mouth in [place] 00 the Medical morning. Branch topiramate 2021-1 Yes [id number] 100mg Take 4 [facility] 25 mg 0-21 tablets by ity of tablet 00:00: mouth in [place] 00 the Medical morning. Branch topiramate 2021-1 Yes [id number] 100mg Take 4 [facility] 25 mg 0-21 tablets by ity of tablet 00:00: mouth in [place] 00 the Medical morning. Branch topiramate 2021-1 Yes [id number] 100mg Take 4 [facility] 25 mg 0-21 tablets by ity of tablet 00:00: mouth in [place] 00 the Medical morning. Branch topiramate 2021-1 Yes [id number] 100mg Take 4 [facility] 25 mg 0-21 tablets by ity of tablet 00:00: mouth in [place] 00 the Medical morning. Branch topiramate 2-1 Yes [id number] 100mg Take 4 [facility] 25 mg 0-21 tablets by ity of tablet 00:00: mouth in [place] 00 the Medical morning. Branch topiramate 2-1 Yes [id number] 100mg Take 4 [facility] 25 mg 0-21 tablets by ity of tablet 00:00: mouth in [place] 00 the Medical morning. Branch topiramate 2-1 Yes [id number] 100mg Take 4 [facility] 25 mg 0-21 tablets by ity of tablet 00:00: mouth in [place] 00 the Medical morning. Branch topiramate 2-1 Yes [id number] 100mg Take 4 [facility] 25 mg 0-21 tablets by ity of tablet 00:00: mouth in [place] 00 the Medical morning. Branch topiramate 2-1 Yes [id number] 100mg Take 4 [facility] 25 mg 0-21 tablets by ity of tablet 00:00: mouth in [place] 00 the Medical morning. Branch topiramate 2-1 Yes [id number] 100mg Take 4 [facility] 25 mg 0-21 tablets by ity of tablet 00:00: mouth in [place] 00 the Medical morning. Branch topiramate 2021-1 Yes [id number] 100mg Take 4 [facility] 25 mg 0-21 tablets by ity of tablet 00:00: mouth in [place] 00 the Medical morning. Branch topiramate 2-1 Yes [id number] 100mg Take 4 [facility] 25 mg 0-21 tablets by ity of tablet 00:00: mouth in [place] 00 the Medical morning. Branch topiramate 2-1 Yes [id number] 100mg Take 4 [facility] 25 mg 0-21 tablets by ity of tablet 00:00: mouth in [place] 00 the Medical morning. Branch topiramate 2021-1 Yes [id number] 100mg Take 4 [facility] 25 mg 0-21 tablets by ity of tablet 00:00: mouth in [place] 00 the Medical morning. Branch topiramate 2021-1 Yes [id number] 100mg Take 4 [facility] 25 mg 0-21 tablets by ity of tablet 00:00: mouth in [place] 00 the Medical morning. Branch topiramate 2-1 Yes [id number] 100mg Take 4 [facility] 25 mg 0-21 tablets by ity of tablet 00:00: mouth in [place] 00 the Medical morning. Branch topiramate 2-1 Yes [id number] 100mg Take 4 [facility] 25 mg 0-21 tablets by ity of tablet 00:00: mouth in [place] 00 the Medical morning. Branch topiramate 2-1 Yes [id number] 100mg Take 4 [facility] 25 mg 0-21 tablets by ity of tablet 00:00: mouth in [place] 00 the Medical morning. Branch topiramate 2-1 Yes [id number] 100mg Take 4 [facility] 25 mg 0-21 tablets by ity of tablet 00:00: mouth in [place] 00 the Medical morning. Branch topiramate 2-1 Yes [id number] 100mg Take 4 [facility] 25 mg 0-21 tablets by ity of tablet 00:00: mouth in [place] 00 the Medical morning. Branch topiramate 2-1 Yes [id number] 100mg Take 4 [facility] 25 mg 0-21 tablets by ity of tablet 00:00: mouth in [place] 00 the Medical morning. Branch topiramate 2021-05 Yes [id number] 100mg Take 4 [facility] 25 mg 0-21 tablets by ity of tablet 00:00: mouth in [place] 00 the Medical morning. Branch topiramate 2021-05 Yes [id number] 100mg Take 4 [facility] 25 mg 0-21 tablets by ity of tablet 00:00: mouth in [place] 00 the Medical morning. Branch topiramate 2021-05 Yes [id number] 100mg Take 4 [facility] 25 mg 0-21 tablets by ity of tablet 00:00: mouth in [place] 00 the Medical morning. Branch diphenhydrA 2021-05- [...] mouth. ity o f e 09:39: 00:00 [place] (CITALOPRAM 49 :00 Medical ORAL) Branch citalopram [...] 28 :00 Medical Branch albuterol 2021-05 Yes [id number] 2{puff} Inhale 2 Univers 90 0-18 Puffs ity of mcg/actuati 00:00: every 6 [place] as on inhaler 00 (six) Medical hours as Branch needed for Wheezing or Shortness of Breath. albuterol 2021-05 Yes [id number] 2{puff} Inhale 2 Univers 90 0-18 Puffs ity of mcg/actuati 00:00: every 6 [place] on inhaler 00 (six) Medical hours as Branch needed for Wheezing or Shortness of Breath. albuterol 2021-05 Yes [id number] 2{puff} Inhale 2 [facility] 90 0-18 Puffs ity of mcg/actuati 00:00: every 6 [place] on inhaler 00 (six) Medical hours as Branch needed for Wheezing or Shortness of Breath. albuterol 2021-05 Yes [id number] 2{puff} Inhale 2 [facility] 90 0-18 Puffs ity of mcg/actuati 00:00: every 6 [place] on inhaler 00 (six) Medical hours as Branch needed for Wheezing or Shortness of Breath. albuterol 2021-05 Yes [id number] 2{puff} Inhale 2 [facility] 90 0-18 Puffs ity of mcg/actuati 00:00: every 6 [place] inhaler 00 (six) Medical hours as Branch needed for Wheezing or Shortness of Breath. albuterol 2021-05 Yes [id number] 2{puff} Inhale 2 [facility] 90 0-18 Puffs ity of mcg/actuati 00:00: every 6 [place] on inhaler 00 (six) Medical hours as Branch needed for Wheezing or Shortness of Breath. albuterol 2021-05 Yes [id number] 2{puff} Inhale 2 [facility] 90 0-18 Puffs ity of mcg/actuati 00:00: every 6 [place] as on inhaler 00 (six) Medical hours as Branch needed for Wheezing or Shortness of Breath. albuterol 2021-05 Yes [id number] 2{puff} Inhale 2 [facility] 90 0-18 Puffs ity of mcg/actuati 00:00: every 6 [place] as on inhaler 00 (six) Medical hours as Branch needed for Wheezing or Shortness of Breath. albuterol 2021-05 Yes [id number] 2{puff} Inhale 2 [facility] 90 0-18 Puffs ity of mcg/actuati 00:00: every 6 [place] as on inhaler 00 (six) Medical hours as Branch needed for Wheezing or Shortness of Breath. albuterol 2021-05 Yes [id number] 2{puff} Inhale 2 [facility] 90 0-18 Puffs ity of mcg/actuati 00:00: every 6 [place] as on inhaler 00 (six) Medical hours as Branch needed for Wheezing or Shortness of Breath. albuterol 2021-05 Yes [id number] 2{puff} Inhale 2 [facility] 90 0-18 Puffs ity of mcg/actuati 00:00: every 6 [place] as on inhaler 00 (six) Medical hours as Branch needed for Wheezing or Shortness of Breath. albuterol 2021-05 Yes [id number] 2{puff} Inhale 2 [facility] 90 0-18 Puffs ity of mcg/actuati 00:00: every 6 [place] as on inhaler 00 (six) Medical hours as Branch needed for Wheezing or Shortness of Breath. albuterol 2021-05 Yes [id number] 2{puff} Inhale 2 [facility] 90 0-18 Puffs ity of mcg/actuati 00:00: every 6 [place] as on inhaler 00 (six) Medical hours as Branch needed for Wheezing or Shortness of Breath. albuterol 2021-05 Yes [id number] 2{puff} Inhale 2 [facility] 90 0-18 Puffs ity of mcg/actuati 00:00: every 6 [place] as on inhaler 00 (six) Medical hours as Branch needed for Wheezing or Shortness of Breath. albuterol 2021-05 Yes [id number] 2{puff} Inhale 2 [facility] 90 0-18 Puffs ity of mcg/actuati 00:00: every 6 [place] as on inhaler 00 (six) Medical hours as Branch needed for Wheezing or Shortness of Breath. albuterol 2021-05 Yes [id number] 2{puff} Inhale 2 [facility] 90 0-18 Puffs ity of mcg/actuati 00:00: every 6 [place] as on inhaler 00 (six) Medical hours as Branch needed for Wheezing or Shortness of Breath. albuterol 2021-05 Yes [id number] 2{puff} Inhale 2 [facility] 90 0-18 Puffs ity of mcg/actuati 00:00: every 6 [place] as on inhaler 00 (six) Medical hours as Branch needed for Wheezing or Shortness of Breath. albuterol 2021-05 Yes [id number] 2{puff} Inhale 2 [facility] 90 0-18 Puffs ity of mcg/actuati 00:00: every 6 [place] as on inhaler 00 (six) Medical hours as Branch needed for Wheezing or Shortness of Breath. albuterol 2021-05 Yes [id number] 2{puff} Inhale 2 [facility] 90 0-18 Puffs ity of mcg/actuati 00:00: every 6 [place] as on inhaler 00 (six) Medical hours as Branch needed for Wheezing or Shortness of Breath. albuterol 2021-05 Yes [id number] 2{puff} Inhale 2 [facility] 90 0-18 Puffs ity of mcg/actuati 00:00: every 6 [place] as on inhaler 00 (six) Medical hours as Branch needed for Wheezing or Shortness of Breath. albuterol 2021-05 Yes [id number] 2{puff} Inhale 2 [facility] 90 0-18 Puffs ity of mcg/actuati 00:00: every 6 [place] as on inhaler 00 (six) Medical hours as Branch needed for Wheezing or Shortness of Breath. albuterol 2021-05 Yes [id number] 2{puff} Inhale 2 [facility] 90 0-18 Puffs ity of mcg/actuati 00:00: every 6 [place] as on inhaler 00 (six) Medical hours as Branch needed for Wheezing or Shortness of Breath. albuterol 2021-05 Yes [id number] 2{puff} Inhale 2 [facility] 90 0-18 Puffs ity of mcg/actuati 00:00: every 6 [place] as on inhaler 00 (six) Medical hours as Branch needed for Wheezing or Shortness of Breath. albuterol 2021-05 Yes [id number] 2{puff} Inhale 2 [facility] 90 0-18 Puffs ity of mcg/actuati 00:00: every 6 [place] as on inhaler 00 (six) Medical hours as Branch needed for Wheezing or Shortness of Breath. albuterol 2021-05 Yes [id number] 2{puff} Inhale 2 [facility] 90 0-18 Puffs ity of mcg/actuati 00:00: every 6 [place] as on inhaler 00 (six) Medical hours as Branch needed for Wheezing or Shortness of Breath. albuterol 2021-05 Yes [id number] 2{puff} Inhale 2 [facility] 90 0-18 Puffs ity of mcg/actuati 00:00: every 6 [place] as on inhaler 00 (six) Medical hours as Branch needed for Wheezing or Shortness of Breath. albuterol 2021-05 Yes [id number] 2{puff} Inhale 2 [facility] 90 0-18 Puffs ity of mcg/actuati 00:00: every 6 [place] as on inhaler 00 (six) Medical hours as Branch needed for Wheezing or Shortness of Breath. albuterol 2021-05 Yes [id number] 2{puff} Inhale 2 [facility] 90 0-18 Puffs ity of mcg/actuati 00:00: every 6 [place] as on inhaler 00 (six) Medical hours as Branch needed for Wheezing or Shortness of Breath. albuterol 2021-05 Yes [id number] 2{puff} Inhale 2 [facility] 90 0-18 Puffs ity of mcg/actuati 00:00: every 6 [place] as on inhaler 00 (six) Medical hours as Branch needed for Wheezing or Shortness of Breath. albuterol 2021-05 Yes [id number] 2{puff} Inhale 2 [facility] 90 0-18 Puffs ity of mcg/actuati 00:00: every 6 [place] as on inhaler 00 (six) Medical hours as Branch needed for Wheezing or Shortness of Breath. albuterol 2021-05 Yes [id number] 2{puff} Inhale 2 [facility] 90 0-18 Puffs ity of mcg/actuati 00:00: every 6 [place] as on inhaler 00 (six) Medical hours as Branch needed for Wheezing or Shortness of Breath. albuterol 2021-05 Yes [id number] 2{puff} Inhale 2 [facility] 90 0-18 Puffs ity of mcg/actuati 00:00: every 6 [place] as on inhaler 00 (six) Medical hours as Branch needed for Wheezing or Shortness of Breath. albuterol 2021-05 Yes [id number] 2{puff} Inhale 2 [facility] 90 0-18 Puffs ity of mcg/actuati 00:00: every 6 [place] as on inhaler 00 (six) Medical hours as Branch needed for Wheezing or Shortness of Breath. albuterol 2021-05 Yes [id number] 2{puff} Inhale 2 [facility] 90 0-18 Puffs ity of mcg/actuati 00:00: every 6 [place] as on inhaler 00 (six) Medical hours as Branch needed for Wheezing or Shortness of Breath. albuterol 2021-05 Yes [id number] 2{puff} Inhale 2 [facility] 90 0-18 Puffs ity of mcg/actuati 00:00: every 6 [place] as on inhaler 00 (six) Medical hours as Branch needed for Wheezing or Shortness of Breath. albuterol 2021-05 Yes [id number] 2{puff} Inhale 2 [facility] 90 0-18 Puffs ity of mcg/actuati 00:00: every 6 [place] as on inhaler 00 (six) Medical hours as Branch needed for Wheezing or Shortness of Breath. albuterol 2021-05 Yes [id number] 2{puff} Inhale 2 [facility] 90 0-18 Puffs ity of mcg/actuati 00:00: every 6 [place] as on inhaler 00 (six) Medical hours as Branch needed for Wheezing or Shortness of Breath. albuterol 2021-05 Yes [id number] 2{puff} Inhale 2 [facility] 90 0-18 Puffs ity of mcg/actuati 00:00: every 6 [place] as on inhaler 00 (six) Medical hours as Branch needed for Wheezing or Shortness of Breath. albuterol 2021-05 Yes [id number] 2{puff} Inhale 2 [facility] 90 0-18 Puffs ity of mcg/actuati 00:00: every 6 [place] as on inhaler 00 (six) Medical hours as Branch needed for Wheezing or Shortness of Breath. albuterol 2021-05 Yes [id number] 2{puff} Inhale 2 [facility] 90 0-18 Puffs ity of mcg/actuati 00:00: every 6 [place] as on inhaler 00 (six) Medical hours as Branch needed for Wheezing or Shortness of Breath. albuterol 2021-05 Yes [id number] 2{puff} Inhale 2 [facility] 90 0-18 Puffs ity of mcg/actuati 00:00: every 6 [place] as on inhaler 00 (six) Medical hours as Branch needed for Wheezing or Shortness of Breath. albuterol 2021-05 Yes [id number] 2{puff} Inhale 2 [facility] 90 0-18 Puffs ity of mcg/actuati 00:00: every 6 [place] as on inhaler 00 (six) Medical hours as Branch needed for Wheezing or Shortness of Breath. albuterol 2021-05 Yes [id number] 2{puff} Inhale 2 [facility] 90 0-18 Puffs ity of mcg/actuati 00:00: every 6 [place] as on inhaler 00 (six) Medical hours as Branch needed for Wheezing or Shortness of Breath. albuterol 2021-05 Yes [id number] 2{puff} Inhale 2 [facility] 90 0-18 Puffs ity of mcg/actuati 00:00: every 6 [place] as on inhaler 00 (six) Medical hours as Branch needed for Wheezing or Shortness of Breath. albuterol 2021-05 Yes [id number] 2{puff} Inhale 2 [facility] 90 0-18 Puffs ity of mcg/actuati 00:00: every 6 [place] as on inhaler 00 (six) Medical hours as Branch needed for Wheezing or Shortness of Breath. albuterol 2021-05 Yes [id number] 2{puff} Inhale 2 [facility] 90 0-18 Puffs ity of mcg/actuati 00:00: every 6 [place] as on inhaler 00 (six) Medical hours as Branch needed for Wheezing or Shortness of Breath. albuterol 2021-05 Yes [id number] 2{puff} Inhale 2 [facility] 90 0-18 Puffs ity of mcg/actuati 00:00: every 6 [place] as on inhaler 00 (six) Medical hours as Branch needed for Wheezing or Shortness of Breath. albuterol 2021-05 Yes [id number] 2{puff} Inhale 2 [facility] 90 0-18 Puffs ity of mcg/actuati 00:00: every 6 [place] as on inhaler 00 (six) Medical hours as Branch needed for Wheezing or Shortness of Breath. albuterol 2021-05 Yes [id number] 2{puff} Inhale 2 [facility] 90 0-18 Puffs ity of mcg/actuati 00:00: every 6 [place] as on inhaler 00 (six) Medical hours as Branch needed for Wheezing or Shortness of Breath. albuterol 2021-05 Yes [id number] 2{puff} Inhale 2 [facility] 90 0-18 Puffs ity of mcg/actuati 00:00: every 6 [place] as on inhaler 00 (six) Medical hours as Branch needed for Wheezing or Shortness of Breath. albuterol 2021-05 Yes [id number] 2{puff} Inhale 2 [facility] 90 0-18 Puffs ity of mcg/actuati 00:00: every 6 [place] as on inhaler 00 (six) Medical hours as Branch needed for Wheezing or Shortness of Breath. albuterol 2021-05 Yes [id number] 2{puff} Inhale 2 [facility] 90 0-18 Puffs ity of mcg/actuati 00:00: every 6 [place] as on inhaler 00 (six) Medical hours as Branch needed for Wheezing or Shortness of Breath. albuterol 2021-05 Yes [id number] 2{puff} Inhale 2 [facility] 90 0-18 Puffs ity of mcg/actuati 00:00: every 6 [place] as on inhaler 00 (six) Medical hours as Branch needed for Wheezing or Shortness of Breath. albuterol 2021-05 Yes [id number] 2{puff} Inhale 2 [facility] 90 0-18 Puffs [...] a 24 hour period. benzonatate 2021-05- No [id number] 200mg Take 1 [facility] 200 mg 0-18 10-26 capsule by ity of capsule 00:00: 04:59 mouth 3 [place] 00 :00 (three) Medical times Branch daily as needed for Cough for up to 7 days. benzonatate 2021-05- No [id number] 200mg Take 1 [facility] 200 mg 0-18 10-26 capsule by ity of capsule 00:00: 04:59 mouth 3 [place] 00 :00 (three) Medical times Branch daily as needed for Cough for up to 7 days. benzonatate 2021-05- No [id number] 200mg Take 1 [facility] 200 mg 0-18 10-26 capsule by ity of capsule 00:00: 04:59 mouth 3 [place] 00 :00 (three) Medical times Branch daily as needed for Cough for up to 7 days. benzonatate 2021-05- No [id number] 200mg Take 1 [facility] 200 mg 0-18 10-26 capsule by ity of capsule 00:00: 04:59 mouth 3 [place] 00 :00 (three) Medical times Branch daily as needed for Cough for up to 7 days. benzonatate 2021-05 No [id number] 200mg Take 1 [facility] 200 mg 0-18 - capsule by ity of capsule 00:00: 04:59 mouth 3 [place] 00 :00 (three) Medical times [place] daily as needed for Cough for up to 7 days. benzonatate 2021-05 No [id number] 200mg Take 1 [facility] 200 mg 0-18 - capsule by ity of capsule 00:00: 04:59 mouth 3 [place] 00 :00 (three) Medical times [place] daily as needed for Cough for up to 7 days. SUMAtriptan 2021-05 No [id number] 50mg Take 1 [facility] 50 mg 0-18 - 9105 tablet by ity of tablet 00:00: 04:59 mouth [place] 00 :00 now for 1 Medical dose. [place] SUMAtriptan 2021-05 No [id number] 50mg Take 1 [facility] 50 mg 0-27 [...] On Branch 02/21/22 at 0130, [place] diphenhydrA 2021-05- No [...] 1 Medical 50 mcg dose, On Branch [place] 02/18/22 at 1530, Routine ketorolac 2021-05- No 30mg 30 mg, Unive rs (TORADOL) 002-18 Slow IV ity of injection 20:15: 20:09 Push, [place] 30 mg 00 :00 ONCE, 1 Medical dose, On [facility] 02/18/22 at 1515, [place] iopamidol 2021-05- No [id number] 60mL 60 mL, Un sushant (ISOVUE 0- [...] 1 Medical 50 mcg dose, On Branch [place] 02/18/22 at 1300, Routine ondansetron 2021-05 No 4mg 4 mg, Slow Univers (ZOFRAN 02-18 IV [place], ity of (PF)) 17:15: 17:27 ONCE, 1 [place] injection 4 00 :00 dose, On Medi yessi mg [place] Branch 02/18/22 at 1215, [place] morpHINE (2 2021-2021- No 4mg 4 mg, Slow Univers mg/mL) 01-18 IV Push, ity of injection 4 15:15: 14:49 ONCE, 1 [place] mg 00 :00 dose, On Medical [facility] 01/18/22 Branch at 1015, STAT ondansetron 2021- No 4mg 4 mg, Slow Univers (ZOFRAN 01-18 IV [place], ity of (PF)) 13:30: 13:33 ONCE, 1 [place] injection 4 00 :00 dose, On Medi yessi mg [facility] 01/18/22 Branch at 0830, [place] morpHINE (4 2021-0 2021- No 4mg 4 mg, Slow Univers mg/mL) 01-18 IV Push, ity of injection 4 13:30: 13:34 ONCE, 1 [place] mg 00 :00 dose, On [facility] 01/18/22 Branch at 0830, STAT [...] Branch at 0630, [place] iodixanoL 2021- No [id number] 80mL 80 mL, U nivers (VISIPAQUE 01-18 [...] Indication s: acute pain ondansetron 0 Yes [id number] 4mg Take 1 [facility] 4 mg 9-08 [id number] tablet by ity of disintegrat 00:00: mouth [place] ing tablet 00 every 8 Medica l (eight) Branch hours as needed for Nausea and Vomiting (N/V). ibuprofen 2021-0 Yes [id number] 600mg Take 1 [facility] 600 mg 9-08 [id number] tablet by ity of tablet 00:00: mouth [place] 00 every 6 Medical (six) Branch hours as needed for Pain (scale 4-6). traMADoL 50 2021-0 Yes [id number] 50mg Take 1 Univ ers mg tablet 9-08 tablet by ity o f 00:00: mouth [place] 00 every 6 Medical (six) Branch hours as needed for Pain (scale 7-10). Indication s: acute pain ondansetron 2021-0 Yes [id number] 4mg Take 1 [facility] 4 mg 9-08 [id number] tablet by ity of disintegrat 00:00: mouth [place] ing tablet 00 every 8 Medica l (eight) Branch hours as needed for Nausea and Vomiting (N/V). ibuprofen 2021-0 Yes [id number] 600mg Take 1 [facility] 600 mg 9-08 [id number] tablet by ity of tablet 00:00: mouth [place] 00 every 6 Medical (six) Branch hours as needed for Pain (scale 4-6). traMADoL 50 2021-0 Yes [id number] 50mg Take 1 Univ ers mg tablet 9-08 tablet by ity o f 00:00: mouth [place] 00 every 6 Medical (six) Branch hours as needed for Pain (scale 7-10). Indication s: acute pain ondansetron 2021-0 Yes [id number] 4mg Take 1 [facility] 4 mg 9-08 [id number] tablet by ity of disintegrat 00:00: mouth [place] ing tablet 00 every 8 Medica l (eight) Branch hours as needed for Nausea and Vomiting (N/V). ibuprofen 2-0 Yes [id number] 600mg Take 1 [facility] 600 mg 9-08 [id number] tablet by ity of tablet 00:00: mouth [place] 00 every 6 Medical (six) Branch hours as needed for Pain (scale 4-6). traMADoL 50 2-0 Yes [id number] 50mg Take 1 Univ ers mg tablet 9-08 tablet by ity o f 00:00: mouth [place] 00 every 6 Medical (six) Branch hours as needed for Pain (scale 7-10). Indication s: acute pain ondansetron 2022-0 Yes [id number] 4mg Take 1 [facility] 4 mg 9-08 [id number] tablet by ity of disintegrat 00:00: mouth [place] ing tablet 00 every 8 Medica l (eight) Branch hours as needed for Nausea and Vomiting (N/V). ibuprofen 2022-0 Yes [id number] 600mg Take 1 [facility] 600 mg 9-08 [id number] tablet by ity of tablet 00:00: mouth [place] 00 every 6 Medical (six) Branch hours as needed for Pain (scale 4-6). traMADoL 50 202-0 Yes [id number] 50mg Take 1 Univ ers mg tablet 9-08 tablet by ity o f 00:00: mouth [place] 00 every 6 Medical (six) Branch hours as needed for Pain (scale 7-10). Indication s: acute pain ondansetron 2022-0 Yes [id number] 4mg Take 1 [facility] 4 mg 9-08 [id number] tablet by ity of disintegrat 00:00: mouth [place] ing tablet 00 every 8 Medica l (eight) Branch hours as needed for Nausea and Vomiting (N/V). ibuprofen 2-0 Yes [id number] 600mg Take 1 [facility] 600 mg 9-08 [id number] tablet by ity of tablet 00:00: mouth [place] 00 every 6 Medical (six) Branch hours as needed for Pain (scale 4-6). traMADoL 50 2021-0 Yes [id number] 50mg Take 1 Univ ers mg tablet 9-08 tablet by ity o f 00:00: mouth [place] 00 every 6 Medical (six) Branch hours as needed for Pain (scale 7-10). Indication s: acute pain ondansetron 2022-0 Yes [id number] 4mg Take 1 Univers 4 mg 9-08 [id number] tablet by ity of disintegrat 00:00: mouth [place] ing tablet 00 every 8 Medica l (eight) Branch hours as needed for Nausea and Vomiting (N/V). ibuprofen 2022-0 Yes [id number] 600mg Take 1 [facility] 600 mg 9-08 [id number] tablet by ity of tablet 00:00: mouth [place] 00 every 6 Medical (six) Branch hours as needed for Pain (scale 4-6). traMADoL 50 2022-0 Yes [id number] 50mg Take 1 Univ ers mg tablet 9-08 tablet by ity o f 00:00: mouth [place] 00 every 6 Medical (six) Branch hours as needed for Pain (scale 7-10). Indication s: acute pain ondansetron 2021-0 Yes [id number] 4mg Take 1 Univers 4 mg 9- [id number] tablet by ity of disintegrat 00:00: mouth [place] ing tablet 00 every 8 Medica l (eight) Branch hours as needed for Nausea and Vomiting (N/V). ibuprofen 2021-0 Yes [id number] 600mg Take 1 [facility] 600 mg - [id number] tablet by ity of tablet 00:00: mouth [place] 00 every 6 Medical (six) Branch hours as needed for Pain (scale 4-6). traMADoL 50 2021-0 Yes [id number] 50mg Take 1 Univ ers mg tablet 9-08 tablet by ity o f 00:00: mouth [place] 00 every 6 Medical (six) Branch hours as needed for Pain (scale 7-10). Indication s: acute pain ondansetron 2021-0 Yes [id number] 4mg Take 1 Univers 4 mg - [id number] tablet by ity of disintegrat 00:00: mouth [place] ing tablet 00 every 8 Medica l (eight) Branch hours as needed for Nausea and Vomiting (N/V). ibuprofen 2021-0 Yes [id number] 600mg Take 1 [facility] 600 mg - [id number] tablet by ity of tablet 00:00: mouth [place] 00 every 6 Medical (six) Branch hours as needed for Pain (scale 4-6). traMADoL 50 2021-0 202- No [id number] 50mg Take 1 Uni vers mg tablet 01-1818 tablet by ity of 00:00: 00:00 mouth [place] 00 :00 every 6 Medical (six) Branch hours as needed for Pain (scale 7-10). Indication s: acute pain ondansetron 2021-0 202- No [id number] 4mg Take 1 [facility] 4 mg -18 [id number] tablet by ity of disintegrat 00:00: 00:00 mouth [place] ing tablet 00 :00 every 8 Medica l (eight) Branch hours as needed for Nausea and Vomiting (N/V). ibuprofen 2021-0 202- No [id number] 600mg Take 1 [facility] 600 mg -18 [id number] tablet by ity o f tablet 00:00: [...] Indication s: acute pain ondansetron 2021-2021- No [id number] 4mg Take 1 [facility] 4 mg -02-27 [id number] tablet by ity of disintegrat 00:00: 00:00 mouth [place] ing tablet 00 :00 every 8 Medica l (eight) Branch hours as needed for Nausea and Vomiting (N/V). ibuprofen 2021-2021- No [id number] 600mg Take 1 [facility] 600 mg 01-18 [id number] tablet by ity o f tablet 00:00: [...] Indication s: acute pain ondansetron 2021-2021- No [id number] 4mg Take 1 [facility] 4 mg 01-18 [id number] tablet by ity of disintegrat 00:00: 00:00 mouth [place] ing tablet 00 :00 every 8 Medica l (eight) Branch hours as needed for Nausea and Vomiting (N/V). ibuprofen 2021-2021- No [id number] 600mg Take 1 [facility] 600 mg 01-18 [id number] tablet by ity o f tablet 00:00: [...] Indication s: acute pain ondansetron 2021- No [id number] 4mg Take 1 [facility] 4 mg 01-18 [id number] tablet by ity of disintegrat 00:00: 00:00 mouth [place] ing tablet 00 :00 every 8 Medica l (eight) Branch hours as needed for Nausea and Vomiting (N/V). ibuprofen 2021- No [id number] 600mg Take 1 [facility] 600 mg 01-18 [id number] tablet by ity o f tablet 00:00: 00:00 mouth [place] 00 :00 every 6 Medical (six) Branch hours as needed for Pain (scale 4-6). predniSONE 2021- No [id number] 40mg Take 2 Univers 20 mg 01-16 tablets by ity of tablet 00:00: 04:59 mouth in [place] 00 :00 the Medical morning Branch for 7 days. predniSONE 2021- No [id number] 40mg Take 2 Univers 20 mg 01-16 tablets by ity of tablet 00:00: 04:59 mouth in [place] 00 :00 the [facility] Branch for 7 days. morpHINE (4 [...] Sat01/15/22 at 0915, 1 mL proMETHazin Yes [id number] 25mg Take 1 Univers e 25 mg 9-05 tablet by ity of tablet 00:00: mouth [place] 00 every 6 Medical (six) Branch hours as needed for Nausea and Vomiting (N/V). proMETHazin 2021-0 Yes [id number] 25mg Take 1 Univers e 25 mg 9-05 tablet by ity of tablet 00:00: mouth [place] 00 every 6 Medical (six) Branch hours as needed for Nausea and Vomiting (N/V). proMETHazin 2021-0 Yes [id number] 25mg Take 1 Univers e 25 mg 9-05 tablet by ity of tablet 00:00: mouth [place] 00 every 6 Medical (six) Branch hours as needed for Nausea and Vomiting (N/V). proMETHazin 2021-0 Yes [id number] 25mg Take 1 Univers e 25 mg 9-05 tablet by ity of tablet 00:00: mouth [place] 00 every 6 Medical (six) Branch hours as needed for Nausea and Vomiting (N/V). proMETHazin 2021-0 Yes [id number] 25mg Take 1 Univers e 25 mg 9-05 tablet by ity of tablet 00:00: mouth [place] 00 every 6 Medical (six) Branch hours as needed for Nausea and Vomiting (N/V). proMETHazin 2022-0 Yes [id number] 25mg Take 1 Univers e 25 mg 9-05 tablet by ity of tablet 00:00: mouth [place] 00 every 6 Medical (six) Branch hours as needed for Nausea and Vomiting (N/V). proMETHazin Yes [id number] 25mg Take 1 Univers e 25 mg 9-05 tablet by ity of tablet 00:00: mouth [place] 00 every 6 Medical (six) Branch hours as needed for Nausea and Vomiting (N/V). proMETHazin Yes [id number] 25mg Take 1 Univers e 25 mg 9-05 tablet by ity of tablet 00:00: mouth [place] 00 every 6 Medical (six) Branch hours as needed for Nausea and Vomiting (N/V). proMETHazin Yes [id number] 25mg Take 1 Univers e 25 mg 9-05 tablet by ity of tablet 00:00: mouth [place] 00 every 6 Medical (six) Branch hours as needed for Nausea and Vomiting (N/V). proMETHazin 2021- No [id number] 25mg Take 1 Univers e 25 mg 9-05 10-18 tablet by ity of tablet 00:00: 00:00 mouth [place] 00 :00 every 6 Medical (six) Branch hours as needed for Nausea and Vomiting (N/V). proMETHazin 2021- No [id number] 25mg Take 1 Univers e 25 mg 9-05 10-18 tablet by ity of tablet 00:00: 00:00 mouth [place] 00 :00 every 6 Medical (six) Branch hours as needed for Nausea and Vomiting (N/V). proMETHazin 2021- No [id number] 25mg Take 1 Univers e 25 mg 9-05 10-18 tablet by ity of tablet 00:00: 00:00 mouth [place] 00 :00 every 6 Medical (six) Branch hours as needed for Nausea and Vomiting (N/V). proMETHazin 2021- No [id number] 25mg Take 1 Univers e 25 mg [...] IV ity of (BENADRYL) 23:45: 23:51 Push, [place] injection 00 :00 ONCE, 1 Medical 25 mg dose, On Branch [facility] 01/08/22 at 1845, STAT dexamethaso 2021- No 10mg 10 mg, Uni vers ne sod phos 01-08 Slow IV ity of PF 23:45: 23:50 Push, [place] injection 00 :00 ONCE, 1 Medical 10 mg dose, On Branch [facility] 01/08/22 at 1845, 1 mL ketorolac 2021- No 30mg 30 mg, Unive rs (TORADOL) 01-08 Slow IV ity of injection 23:45: 23:51 Push, [place] 30 mg 00 :00 ONCE, 1 Medical dose, On Branch [facility] 01/08/22 at 1845, [place] ondansetron 0 Yes [id number] 4mg Take 1 Univers 4 mg 8-29 tablet by ity of disintegrat 00:00: mouth [place] ing tablet 00 every 8 Medica l (eight) Branch hours as needed for Nausea and Vomiting (N/V). acetaminoph 2021-0 Yes [id number] 650mg Take 1 Univers en (TYLENOL 8-29 tablet by ity of ARTHRITIS 00:00: mouth [place] PAIN) 650 00 every 8 Medical mg CR (eight) Branch tablet hours as needed for Pain. ketorolac 2021-0 Yes [id number] 10mg Take 1 U nivers 10 mg 8-29 tablet by ity of tablet 00:00: mouth [place] 00 every 6 Medical (six) Branch hours as needed for Pain (scale 4-6) or Pain (scale 7-10). metaxalone 2022-0 Yes [id number] 800mg Take 1 Univers (SKELAXIN) 8-29 tablet by ity of 800 mg 00:00: mouth in [place] tablet 00 the Medical morning Branch and 1 tablet at noon and 1 tablet in the evening. ondansetron 2022-0 Yes [id number] 4mg Take 1 Univers 4 mg 8-29 tablet by ity of disintegrat 00:00: mouth [place] ing tablet 00 every 8 Medica l (eight) Branch hours as needed for Nausea and Vomiting (N/V). acetaminoph 2022-0 Yes [id number] 650mg Take 1 Univers en (TYLENOL 8-29 tablet by ity of ARTHRITIS 00:00: mouth [place] PAIN) 650 00 every 8 Medical mg CR (eight) Branch tablet hours as needed for Pain. ketorolac 2022-0 Yes [id number] 10mg Take 1 U nivers 10 mg 8-29 tablet by ity of tablet 00:00: mouth [place] 00 every 6 Medical (six) Branch hours as needed for Pain (scale 4-6) or Pain (scale 7-10). metaxalone 2022-0 Yes [id number] 800mg Take 1 Univers (SKELAXIN) 8-29 tablet by ity of 800 mg 00:00: mouth in [place] tablet 00 the Medical morning Branch and 1 tablet at noon and 1 tablet in the evening. ondansetron 2022-0 Yes [id number] 4mg Take 1 Univers 4 mg 8-29 tablet by ity of disintegrat 00:00: mouth [place] ing tablet 00 every 8 Medica l (eight) Branch hours as needed for Nausea and Vomiting (N/V). acetaminoph 2022-0 Yes [id number] 650mg Take 1 Univers en (TYLENOL 8-29 tablet by ity of ARTHRITIS 00:00: mouth [place] PAIN) 650 00 every 8 Medical mg CR (eight) Branch tablet hours as needed for Pain. ketorolac 2022-0 Yes [id number] 10mg Take 1 U nivers 10 mg 8-29 tablet by ity of tablet 00:00: mouth [place] 00 every 6 Medical (six) Branch hours as needed for Pain (scale 4-6) or Pain (scale 7-10). metaxalone 2022-0 Yes [id number] 800mg Take 1 [facility] (SKELAXIN) 8-29 tablet by ity of 800 mg 00:00: mouth in [place] tablet 00 the Medical morning Branch and 1 tablet at noon and 1 tablet in the evening. ondansetron 2022-0 Yes [id number] 4mg Take 1 [facility] 4 mg 8-29 tablet by ity of disintegrat 00:00: mouth [place] ing tablet 00 every 8 Medica l (eight) Branch hours as needed for Nausea and Vomiting (N/V). acetaminoph 2022-0 Yes [id number] 650mg Take 1 [facility] en (TYLENOL 8-29 tablet by ity of ARTHRITIS 00:00: mouth [place] PAIN) 650 00 every 8 Medical mg CR (eight) Branch tablet hours as needed for Pain. ketorolac 2022-0 Yes [id number] 10mg Take 1 [facility] 10 mg 8-29 tablet by ity of tablet 00:00: mouth [place] 00 every 6 Medical (six) Branch hours as needed for Pain (scale 4-6) or Pain (scale 7-10). metaxalone 2-0 Yes [id number] 800mg Take 1 [facility] (SKELAXIN) 8-29 tablet by ity of 800 mg 00:00: mouth in [place] tablet 00 the Medical morning Branch and 1 tablet at noon and 1 tablet in the evening. ondansetron 2-0 Yes [id number] 4mg Take 1 [facility] 4 mg 8-29 tablet by ity of disintegrat 00:00: mouth [place] ing tablet 00 every 8 Medica l (eight) Branch hours as needed for Nausea and Vomiting (N/V). acetaminoph 2-0 Yes [id number] 650mg Take 1 [facility] en (TYLENOL 8-29 tablet by ity of ARTHRITIS 00:00: mouth [place] PAIN) 650 00 every 8 Medical mg CR (eight) Branch tablet hours as needed for Pain. ketorolac 2022-0 Yes [id number] 10mg Take 1 [facility] 10 mg 8-29 tablet by ity of tablet 00:00: mouth [place] 00 every 6 Medical (six) Branch hours as needed for Pain (scale 4-6) or Pain (scale 7-10). metaxalone 2022-0 Yes [id number] 800mg Take 1 [facility] (SKELAXIN) 8-29 tablet by ity of 800 mg 00:00: mouth in [place] tablet 00 the Medical morning Branch and 1 tablet at noon and 1 tablet in the evening. ondansetron 2-0 Yes [id number] 4mg Take 1 [facility] 4 mg 8-29 tablet by ity of disintegrat 00:00: mouth [place] ing tablet 00 every 8 Medica l (eight) Branch hours as needed for Nausea and Vomiting (N/V). acetaminoph 2-0 Yes [id number] 650mg Take 1 [facility] en (TYLENOL 8-29 tablet by ity of ARTHRITIS 00:00: mouth [place] PAIN) 650 00 every 8 Medical mg CR (eight) Branch tablet hours as needed for Pain. ketorolac 2-0 Yes [id number] 10mg Take 1 [facility] n[facility] 10 mg 8-29 tablet by ity of tablet 00:00: mouth [place] 00 every 6 Medical (six) Branch hours as needed for Pain (scale 4-6) or Pain (scale 7-10). metaxalone 2-0 Yes [id number] 800mg Take 1 [facility] (SKELAXIN) 8-29 tablet by ity of 800 mg 00:00: mouth in [place] tablet 00 the Medical morning Branch and 1 tablet at noon and 1 tablet in the evening. ondansetron 2021-0 Yes [id number] 4mg Take 1 [facility] 4 mg 8-29 tablet by ity of disintegrat 00:00: mouth [place] ing tablet 00 every 8 Medica l (eight) Branch hours as needed for Nausea and Vomiting (N/V). acetaminoph 2-0 Yes [id number] 650mg Take 1 [facility] en (TYLENOL 8-29 tablet by ity of ARTHRITIS 00:00: mouth [place] PAIN) 650 00 every 8 Medical mg CR (eight) Branch tablet hours as needed for Pain. ketorolac 2022-0 Yes [id number] 10mg Take 1 [facility] 10 mg 8-29 tablet by ity of tablet 00:00: mouth [place] 00 every 6 Medical (six) Branch hours as needed for Pain (scale 4-6) or Pain (scale 7-10). metaxalone 2022-0 Yes [id number] 800mg Take 1 [facility] (SKELAXIN) 8-29 tablet by ity of 800 mg 00:00: mouth in [place] tablet 00 the Medical morning Branch and 1 tablet at noon and 1 tablet in the evening. ondansetron 2022-0 Yes [id number] 4mg Take 1 [facility] 4 mg 8-29 tablet by ity of disintegrat 00:00: mouth [place] ing tablet 00 every 8 Medica l (eight) Branch hours as needed for Nausea and Vomiting (N/V). acetaminoph 2022-0 Yes [id number] 650mg Take 1 [facility] en (TYLENOL 8-29 tablet by ity of ARTHRITIS 00:00: mouth [place] PAIN) 650 00 every 8 Medical mg CR (eight) Branch tablet hours as needed for Pain. ketorolac 2022-0 Yes [id number] 10mg Take 1 [facility] 10 mg 8-29 tablet by ity of tablet 00:00: mouth [place] 00 every 6 Medical (six) Branch hours as needed for Pain (scale 4-6) or Pain (scale 7-10). metaxalone 2022-0 Yes [id number] 800mg Take 1 [facility] (SKELAXIN) 8-29 tablet by ity of 800 mg 00:00: mouth in [place] tablet 00 the Medical morning Branch and 1 tablet at noon and 1 tablet in the evening. ondansetron 2022-0 Yes [id number] 4mg Take 1 [facility] 4 mg 8-29 tablet by ity of disintegrat 00:00: mouth [place] ing tablet 00 every 8 Medica l (eight) Branch hours as needed for Nausea and Vomiting (N/V). acetaminoph 2022-0 Yes [id number] 650mg Take 1 [facility] en (TYLENOL 8-29 tablet by ity of ARTHRITIS 00:00: mouth [place] PAIN) 650 00 every 8 Medical mg CR (eight) Branch tablet hours as needed for Pain. ketorolac 2022-0 Yes [id number] 10mg Take 1 [facility] n[facility] 10 mg 8-29 tablet by ity of tablet 00:00: mouth [place] 00 every 6 Medical (six) Branch hours as needed for Pain (scale 4-6) or Pain (scale 7-10). metaxalone 2022-0 Yes [id number] 800mg Take 1 [facility] (SKELAXIN) 8-29 tablet by ity of 800 mg 00:00: mouth in [place] tablet 00 the Medical morning Branch and 1 tablet at noon and 1 tablet in the evening. ondansetron 2021-0 Yes [id number] 4mg Take 1 [facility] 4 mg 8-29 tablet by ity of disintegrat 00:00: mouth [place] ing tablet 00 every 8 Medica l (eight) Branch hours as needed for Nausea and Vomiting (N/V). acetaminoph 2021-0 Yes [id number] 650mg Take 1 [facility] en (TYLENOL 8-29 tablet by ity of ARTHRITIS 00:00: mouth [place] PAIN) 650 00 every 8 Medical mg CR (eight) Branch tablet hours as needed for Pain. ketorolac 2021-0 Yes [id number] 10mg Take 1 [facility] 10 mg 8-29 tablet by ity of tablet 00:00: mouth [place] 00 every 6 Medical (six) Branch hours as needed for Pain (scale 4-6) or Pain (scale 7-10). metaxalone 2021-0 Yes [id number] 800mg Take 1 [facility] (SKELAXIN) 8-29 tablet by ity of 800 mg 00:00: mouth in [place] tablet 00 the Medical morning Branch and 1 tablet at noon and 1 tablet in the evening. acetaminoph 2021-0 Yes [id number] 650mg Take 1 [facility] en (TYLENOL 8-29 tablet by ity of ARTHRITIS 00:00: mouth [place] PAIN) 650 00 every 8 Medical mg CR (eight) Branch tablet hours as needed for Pain. acetaminoph 2021-0 Yes [id number] 650mg Take 1 [facility] en (TYLENOL 8-29 tablet by ity of ARTHRITIS 00:00: mouth [place] PAIN) 650 00 every 8 Medical mg CR (eight) Branch tablet hours as needed for Pain. acetaminoph 2021-0 Yes [id number] 650mg Take 1 [facility] en (TYLENOL 8-29 tablet by ity of ARTHRITIS 00:00: mouth [place] PAIN) 650 00 every 8 Medical mg CR (eight) Branch tablet hours as needed for Pain. acetaminoph 2021-0 Yes [id number] 650mg Take 1 [facility] en (TYLENOL 8-29 tablet by ity of ARTHRITIS 00:00: mouth [place] PAIN) 650 00 every 8 Medical mg CR (eight) Branch tablet hours as needed for Pain. acetaminoph 2021-0 Yes [id number] 650mg Take 1 [facility] en (TYLENOL 8-29 tablet by ity of ARTHRITIS 00:00: mouth [place] PAIN) 650 00 every 8 Medical mg CR (eight) Branch tablet hours as needed for Pain. acetaminoph 2021-0 Yes [id number] 650mg Take 1 [facility] en (TYLENOL 8-29 tablet by ity of ARTHRITIS 00:00: mouth [place] PAIN) 650 00 every 8 Medical mg CR (eight) Branch tablet hours as needed for Pain. acetaminoph 2021-0 Yes [id number] 650mg Take 1 [facility] en (TYLENOL 8-29 tablet by ity of ARTHRITIS 00:00: mouth [place] PAIN) 650 00 every 8 Medical mg CR (eight) Branch tablet hours as needed for Pain. acetaminoph 2021-0 Yes [id number] 650mg Take 1 [facility] en (TYLENOL 8-29 tablet by ity of ARTHRITIS 00:00: mouth [place] PAIN) 650 00 every 8 Medical mg CR (eight) Branch tablet hours as needed for Pain. acetaminoph 2021-0 Yes [id number] 650mg Take 1 [facility] en (TYLENOL 8-29 tablet by ity of ARTHRITIS 00:00: mouth [place] PAIN) 650 00 every 8 Medical mg CR (eight) Branch tablet hours as needed for Pain. acetaminoph 2021-0 Yes [id number] 650mg Take 1 [facility] en (TYLENOL 8-29 tablet by ity of ARTHRITIS 00:00: mouth [place] PAIN) 650 00 every 8 Medical mg CR (eight) Branch tablet hours as needed for Pain. acetaminoph 2021-0 Yes [id number] 650mg Take 1 [facility] en (TYLENOL 8-29 tablet by ity of ARTHRITIS 00:00: mouth [place] PAIN) 650 00 every 8 Medical mg CR (eight) Branch tablet hours as needed for Pain. acetaminoph 2021-0 Yes [id number] 650mg Take 1 [facility] en (TYLENOL 8-29 tablet by ity of ARTHRITIS 00:00: mouth [place] PAIN) 650 00 every 8 Medical mg CR (eight) Branch tablet hours as needed for Pain. acetaminoph 2021-0 Yes [id number] 650mg Take 1 [facility] en (TYLENOL 8-29 tablet by ity of ARTHRITIS 00:00: mouth [place] PAIN) 650 00 every 8 Medical mg CR (eight) Branch tablet hours as needed for Pain. acetaminoph 2021-0 Yes [id number] 650mg Take 1 [facility] en (TYLENOL 8-29 tablet by ity of ARTHRITIS 00:00: mouth [place] PAIN) 650 00 every 8 Medical mg CR (eight) Branch tablet hours as needed for Pain. acetaminoph 0 Yes [id number] 650mg Take 1 [facility] en (TYLENOL 8-29 tablet by ity of ARTHRITIS 00:00: mouth [place] PAIN) 650 00 every 8 Medical mg CR (eight) Branch tablet hours as needed for Pain. acetaminoph Yes [id number] 650mg Take 1 [facility] en (TYLENOL 8-29 tablet by ity of ARTHRITIS 00:00: mouth [place] PAIN) 650 00 every 8 Medical mg CR (eight) Branch tablet hours as needed for Pain. acetaminoph Yes [id number] 650mg Take 1 [facility] en (TYLENOL 8-29 tablet by ity of ARTHRITIS 00:00: mouth [place] PAIN) 650 00 every 8 Medical mg CR (eight) Branch tablet hours as needed for Pain. acetaminoph 2021- No [id number] 650mg Take 1 [facility] en (TYLENOL 8-29 11-26 tablet by it y of ARTHRITIS 00:00: 00:00 mouth [place] PAIN) 650 00 :00 every 8 Medical mg CR (eight) Branch tablet hours as needed for Pain. ondansetron 2021- No [id number] 4mg Take 1 [facility] 4 mg 8-29 10-18 tablet by ity of disintegrat 00:00: 00:00 [place] tablet 00 :00 every 8 Medica l (eight) Branch hours as needed for Nausea and Vomiting (N/V). ketorolac 2021- No [id number] 10mg Take 1 [facility] 10 mg 8-29 10-18 tablet by ity of tablet 00:00: 00:00 mouth [place] 00 :00 every 6 Medical (six) Branch hours as needed for Pain (scale 4-6) or Pain (scale 7-10). metaxalone 2021- No [id number] 800mg Take 1 [facility] (SKELAXIN) 8-29 10-18 tablet by ity of 800 mg 00:00: 00:00 mouth in [place] tablet 00 :00 the Medical morning Branch and 1 tablet at noon and 1 tablet in the evening. ondansetron 2021- No [id number] 4mg Take 1 [facility] 4 mg 8-29 10-18 tablet by ity of disintegrat 00:00: 00:00 [place] tablet 00 :00 every 8 Medica l (eight) Branch hours as needed for Nausea and Vomiting (N/V). ketorolac 2022-0 2021- No [id number] 10mg Take 1 [facility] 10 mg 8-29 10-18 tablet by ity of tablet 00:00: 00:00 mouth [place] 00 :00 every 6 Medical (six) Branch hours as needed for Pain (scale 4-6) or Pain (scale 7-10). metaxalone 2021-0 2021- No [id number] 800mg Take 1 [facility] (SKELAXIN) 8-29 10-18 tablet by ity of 800 mg 00:00: 00:00 mouth in [place] tablet 00 :00 the Medical morning Branch and 1 tablet at noon and 1 tablet in the evening. ondansetron 2021-0 2021- No [id number] 4mg Take 1 [facility] 4 mg 8-29 10-18 tablet by ity of disintegrat 00:00: 00:00 mouth [place] tablet 00 :00 every 8 Medica l (eight) Branch hours as needed for Nausea and Vomiting (N/V). ketorolac 2021-0 2021- No [id number] 10mg Take 1 [facility] 10 mg 8-29 10-18 tablet by ity of tablet 00:00: 00:00 mouth [place] 00 :00 every 6 Medical (six) Branch hours as needed for Pain (scale 4-6) or Pain (scale 7-10). metaxalone 2021-0 2021- No [id number] 800mg Take 1 [facility] (SKELAXIN) 8-29 10-18 tablet by ity of 800 mg 00:00: 00:00 mouth in [place] tablet 00 :00 the Medical morning Branch and 1 tablet at noon and 1 tablet in the evening. ondansetron 2022-0 2021- No [id number] 4mg Take 1 [facility] 4 mg 8-29 10-18 tablet by ity of disintegrat 00:00: 00:00 mouth [place] tablet 00 :00 every 8 Medica l (eight) Branch hours as needed for Nausea and Vomiting (N/V). ketorolac 2022-0 2021- No [id number] 10mg Take 1 [facility] 10 mg 8-29 10-18 tablet by ity of tablet 00:00: 00:00 mouth [place] 00 :00 every 6 Medical (six) Branch hours as needed for Pain (scale 4-6) or Pain (scale 7-10). metaxalone 2-0 2- No [id number] 800mg Take 1 [facility] (SKELAXIN) 8-29 10-18 [...] Medical Branch citalopram 2021-0 Yes Take by [facility] ers hydrobromid 8-02 mouth. ity of e 13:03: [place] (CITALOPRAM 04 Medical ORAL) Branch ALBUTEROL Yes [facility] INHALE 802 ity of 13:03: [place] [address] Medical Branch diphenhydrA Yes 25mg Take 25 mg [facility] MINE 25 mg 802 by mouth ity o f capsule 13:03: every 6 [place] [address] (six) Medical hours as Branch needed for Allergies. carbamazepi Yes Take by [facility] vers ne 8-02 mouth. ity of (TEGRETOL 13:03: [place] ORAL) 04 Medical Branch citalopram Yes Take by [facility] ers hydrobromid 8-02 mouth. ity of e 13:03: [place] (CITALOPRAM 04 Medical ORAL) Branch ALBUTEROL Yes [facility] INHALE 8 ity of 13:03: [place] [address] Medical Branch diphenhydrA Yes 25mg Take 25 mg [facility] MINE 25 mg 02 by mouth ity o f capsule 13:03: every 6 [place] [address] (six) Medical hours as Branch needed for Allergies. carbamazepi Yes Take by [facility] vers ne 8-02 mouth. ity of (TEGRETOL 13:03: [place] ORAL) Medical Branch citalopram Yes Take by [facility] ers hydrobromid 8-02 mouth. ity of e 13:03: [place] (CITALOPRAM 04 Medical ORAL) Branch ALBUTEROL Yes [facility] INHALE 12-12 ity of 13:03: [place] [address] Medical Branch diphenhydrA Yes 25mg Take 25 mg [facility] MINE 25 mg 02 by mouth ity o f capsule 13:03: every 6 [place] [address] (six) Medical hours as Branch needed for Allergies. carbamazepi Yes Take by [facility] vers ne 8-02 mouth. ity of (TEGRETOL 13:03: [place] ORAL) 04 Medical Branch citalopram Yes Take by [facility] ers hydrobromid 8-02 mouth. ity of e 13:03: [place] (CITALOPRAM 04 Medical ORAL) Branch ALBUTEROL Yes [facility] INHALE 8 ity of 13:03: [place] [address] Medical Branch diphenhydrA Yes 25mg Take 25 mg [facility] MINE 25 mg 802 by mouth ity o f capsule 13:03: every 6 [place] [address] (six) Medical hours as Branch needed for Allergies. carbamazepi 0 Yes Take by [facility] vers ne 8-02 mouth. ity of (TEGRETOL 13:03: [place] ORAL) Medical Branch citalopram Yes Take by [facility] ers hydrobromid 8-02 mouth. ity of e 13:03: [place] (CITALOPRAM 04 Medical ORAL) Branch ALBUTEROL 0 Yes [facility] INHALE 8-02 ity of 13:03: [place] Medical Branch diphenhydrA 0 Yes 25mg Take 25 mg [facility] MINE 25 mg 802 by mouth ity o f capsule 13:03: every 6 [place] [address] (six) Medical hours as Branch needed for Allergies. carbamazepi 0 Yes Take by [facility] vers ne 8-02 mouth. ity of (TEGRETOL 13:03: [place] ORAL) Medical Branch citalopram Yes Take by [facility] ers hydrobromid 8-02 mouth. ity of e 13:03: [place] (CITALOPRAM 04 Medical ORAL) Branch ALBUTEROL 0 Yes [facility] INHALE 8 ity of 13:03: [place] [address] Medical Branch diphenhydrA 0 Yes 25mg Take 25 mg [facility] MINE 25 mg 12-12 by mouth ity o f capsule 13:03: every 6 [place] [address] (six) Medical hours as Branch needed for Allergies. carbamazepi 0 Yes Take by [facility] vers ne 8-02 mouth. ity of (TEGRETOL 13:03: [place] ORAL) 04 Medical Branch citalopram Yes Take by [facility] ers hydrobromid 8-02 mouth. ity of e 13:03: [place] (CITALOPRAM 04 Medical ORAL) Branch ALBUTEROL 0 Yes [facility] INHALE 8-02 ity of 13:03: [place] [address] Medical Branch diphenhydrA 0 Yes 25mg Take 25 mg [facility] MINE 25 mg 8 by mouth ity o f capsule 13:03: every 6 [place] [address] (six) Medical hours as Branch needed for Allergies. carbamazepi 0 Yes Take by [facility] vers ne 8-02 mouth. ity of (TEGRETOL 13:03: [place] ORAL) 04 Medical Branch citalopram 2022-0 Yes Take by [facility] ers hydrobromid 8-02 mouth. ity of e 13:03: [place] (CITALOPRAM 04 Medical ORAL) Branch ALBUTEROL Yes [facility] INHALE 12-12 ity of 13:03: Medical Branch diphenhydrA Yes 25mg Take 25 mg [facility] MINE 25 mg 02 by mouth ity o f capsule 13:03: every 6 [place] [address] (six) Medical hours as Branch needed for Allergies. carbamazepi Yes Take by [facility] vers ne 8-02 mouth. ity of (TEGRETOL 13:03: [place] ORAL) Medical Branch citalopram Yes Take by [facility] ers hydrobromid 8-02 mouth. ity of e 13:03: [place] (CITALOPRAM 04 Medical ORAL) Branch ALBUTEROL Yes [facility] INHALE 12-12 ity of 13:03: Medical Branch diphenhydrA Yes 25mg Take 25 mg [facility] MINE 25 mg 12-12 by mouth ity o f capsule 13:03: every 6 [place] [address] (six) Medical hours as Branch needed for Allergies. carbamazepi Yes Take by [facility] vers ne 8-02 mouth. ity of (TEGRETOL 13:03: [place] ORAL) Medical Branch citalopram Yes Take by [facility] ers hydrobromid 8-02 mouth. ity of e 13:03: [place] (CITALOPRAM 04 Medical ORAL) Branch ALBUTEROL Yes [facility] INHALE 12-12 ity of 13:03: Medical Branch diphenhydrA Yes 25mg Take 25 mg [facility] MINE 25 mg 12-12 by mouth ity o f capsule 13:03: every 6 [place] [address] (six) Medical hours as Branch needed for Allergies. carbamazepi Yes Take by [facility] vers ne 8-02 mouth. ity of (TEGRETOL 13:03: [place] ORAL) 04 Medical Branch citalopram Yes Take by [facility] ers hydrobromid 8-02 mouth. ity of e 13:03: [place] (CITALOPRAM 04 Medical ORAL) Branch ALBUTEROL Yes [facility] INHALE 8 ity of 13:03: [place] 04 Medical Branch ALBUTEROL Yes [facility] INHALE 8-02 ity of 13:03: [address] ALBUTEROL Yes [facility] INHALE 8-02 ity of 13:03: [address] ALBUTEROL Yes [facility] INHALE 8-02 ity of 13:03: [address] ALBUTEROL Yes [facility] INHALE 8-02 ity of 13:03: [address] ALBUTEROL Yes [facility] INHALE 8-02 ity of 13:03: [address] ALBUTEROL Yes [facility] INHALE 8-02 ity of 13:03: [address] ALBUTEROL Yes [facility] INHALE 8-02 ity of 13:03: [address] ALBUTEROL Yes [facility] INHALE 8-02 ity of 13:03: [address] ALBUTEROL Yes [facility] INHALE 8-02 ity of 13:03: [address] ALBUTEROL Yes [facility] INHALE 8-02 ity of 13:03: [address] ALBUTEROL Yes [facility] INHALE 8-02 ity of 13:03: [address] ALBUTEROL Yes [facility] INHALE 8-02 ity of 13:03: [address] ALBUTEROL Yes [facility] INHALE 8-02 ity of 13:03: [address] ALBUTEROL Yes [facility] INHALE 8-02 ity of 13:03: [address] traZODone Yes [id number] 50mg Take 1 U nivers 50 mg 8-02 tablet by ity of tablet 00:00: mouth at [place] 00 bedtime. [facility] SERTraline Yes [id number] 50mg Take 1 [facility] (ZOLOFT) 50 8-02 tablet by ity of mg tablet 00:00: [place] 00 the Medical [facility]. Branch traZODone Yes [id number] 50mg Take 1 U nivers 50 mg 8-02 tablet by ity of tablet 00:00: mouth at [place] 00 bedtime. Medical [place] SERTraline Yes [id number] 50mg Take 1 [facility] (ZOLOFT) 50 8-02 tablet by ity of mg tablet 00:00: mouth [place] 00 the Medical morning. Branch traZODone 2021-0 Yes [id number] 50mg Take 1 U nivers 50 mg 8-02 tablet by ity of tablet 00:00: mouth at [place] 00 bedtime. Medical Branch SERTraline 2021-0 Yes 50mg Take 1 [facility] (ZOLOFT) 50 8-02 tablet by ity of mg tablet 00:00: mouth [place] 00 the Medical morning. Branch traZODone 2021-0 Yes [id number] 50mg Take 1 U nivers 50 mg 8-02 tablet by ity of tablet 00:00: mouth at [place] 00 bedtime. Medical Branch SERTraline 0 Yes 50mg Take 1 [facility] (ZOLOFT) 50 8-02 tablet by ity of mg tablet 00:00: mouth [place] 00 the Medical morning. Branch traZODone 2021-0 Yes [id number] 50mg Take 1 U nivers 50 mg 8-02 tablet by ity of tablet 00:00: mouth at [place] 00 bedtime. Medical Branch SERTraline 2021-0 Yes 50mg Take 1 [facility] (ZOLOFT) 50 8-02 tablet by ity of mg tablet 00:00: mouth [place] 00 the Medical morning. Branch traZODone 2021-0 Yes [id number] 50mg Take 1 U nivers 50 mg 8-02 tablet by ity of tablet 00:00: mouth at [place] 00 bedtime. Medical Branch SERTraline 0 Yes 50mg Take 1 [facility] (ZOLOFT) 50 8-02 tablet by ity of mg tablet 00:00: mouth [place] 00 the Medical morning. Branch traZODone 2021-0 Yes [id number] 50mg Take 1 U nivers 50 mg 8-02 tablet by ity of tablet 00:00: mouth at [place] 00 bedtime. Medical Branch SERTraline 2021-0 Yes 50mg Take 1 [facility] (ZOLOFT) 50 8-02 tablet by ity of mg tablet 00:00: mouth [place] 00 the Medical morning. Branch traZODone 2021-0 Yes [id number] 50mg Take 1 U nivers 50 mg 8-02 tablet by ity of tablet 00:00: mouth at [place] 00 bedtime. Medical Branch SERTraline 0 Yes [id number] 50mg Take 1 [facility] (ZOLOFT) 50 8-02 tablet by ity of mg tablet 00:00: mouth [place] 00 the Medical morning. Branch traZODone Yes [id number] 50mg Take 1 U nivers 50 mg 8-02 tablet by ity of tablet 00:00: mouth at [place] 00 bedtime. Medical Branch SERTraline Yes [id number] 50mg Take 1 [facility] (ZOLOFT) 50 8-02 tablet by ity of mg tablet 00:00: mouth in [place] 00 the Medical morning. Branch traZODone Yes [id number] 50mg Take 1 U nivers 50 mg 8-02 tablet by ity of tablet 00:00: mouth at [place] 00 bedtime. Medical Branch SERTraline Yes [id number] 50mg Take 1 [facility] (ZOLOFT) 50 8-02 tablet by ity of mg tablet 00:00: mouth in [place] 00 the Medical morning. Branch traZODone Yes [id number] 50mg Take 1 U nivers 50 mg 8-02 tablet by ity of tablet 00:00: mouth at [place] 00 bedtime. Medical Branch SERTraline Yes [id number] 50mg Take 1 [facility] (ZOLOFT) 50 8-02 tablet by ity of mg tablet 00:00: mouth [place] 00 the Medical morning. Branch traZODone 2021- No [id number] 50mg Take 1 [facility] 50 mg 8-02 10-18 tablet by ity of tablet 00:00: 00:00 mouth at [place] 00 :00 bedtime. Medical Branch SERTraline 2021- No [id number] 50mg Take 1 [facility] (ZOLOFT) 50 8-02 10-18 tablet by it y of mg tablet 00:00: 00:00 mouth in [place] as 00 :00 the Medical morning. Branch traZODone 2021- No [id number] 50mg Take 1 [facility] 50 mg 8-02 10-18 tablet by ity of tablet 00:00: 00:00 mouth at [place] 00 :00 bedtime. Medical Branch SERTraline 2021- No [id number] 50mg Take 1 [facility] (ZOLOFT) 50 8- 10-18 tablet by it y of mg tablet 00:00: 00:00 mouth in [facility] as 00 :00 the Medical morning. Branch traZODone 2021- No [id number] 50mg Take 1 [facility] 50 mg 8- 10-18 tablet by ity of tablet 00:00: 00:00 mouth at [place] 00 :00 bedtime. Medical Branch SERTraline 2021- No [id number] 50mg Take 1 [facility] (ZOLOFT) 50 8- 10-18 tablet by it y of mg tablet 00:00: 00:00 mouth in [facility] as 00 :00 the Medical morning. Branch traZODone 2021- No [id number] 50mg Take 1 [facility] 50 mg 8- 10-18 tablet by ity of tablet 00:00: 00:00 mouth at [place] 00 :00 bedtime. Medical Branch SERTraline No [id number] 50mg Take 1 [facility] (ZOLOFT) 50 8- 10-18 tablet by it y of mg tablet 00:00: 00:00 mouth in [facility] as 00 :00 the Medical morning. Branch sulfamethox 2021- No [id number] 1{tbl} Take 1 [facility] azole-trime -06 20-06 tablet by it y of thoprim 00:00: 04:59 mouth in [place] (BACTRIM 00 :00 the Medical DS) 800-160 morning Branc h mg per and 1 tablet tablet in the evening. Do all this for 3 days. ibuprofen Yes [id number] 600mg Take 1 [facility] 600 mg 7-15 tablet by ity of tablet 00:00: mouth [place] [address] every 6 Medical (six) Branch hours as needed for Pain (scale 4-6). ibuprofen 0 Yes [id number] 600mg Take 1 [facility] 600 mg 7-15 tablet by ity of tablet 00:00: mouth [place] [address] every 6 Medical (six) Branch hours as needed for Pain (scale 4-6). ibuprofen 2021-0 Yes [id number] 600mg Take 1 [facility] 600 mg 7-15 tablet by ity of tablet 00:00: mouth [place] 00 every 6 Medical (six) Branch hours as needed for Pain (scale 4-6). ibuprofen 2022-0 Yes [id number] 600mg Take 1 [facility] 600 mg 7-15 tablet by ity of tablet 00:00: mouth [place] 00 every 6 Medical (six) Branch hours as needed for Pain (scale 4-6). ibuprofen 2022-0 Yes [id number] 600mg Take 1 [facility] 600 mg 7-15 tablet by ity of tablet 00:00: mouth [place] 00 every 6 Medical (six) Branch hours as needed for Pain (scale 4-6). ibuprofen 2022-0 Yes [id number] 600mg Take 1 [facility] 600 mg 7-15 tablet by ity of tablet 00:00: mouth [place] 00 every 6 Medical (six) Branch hours as needed for Pain (scale 4-6). ibuprofen 2022-0 Yes [id number] 600mg Take 1 [facility] 600 mg 7-15 tablet by ity of tablet 00:00: mouth [place] 00 every 6 Medical (six) Branch hours as needed for Pain (scale 4-6). ibuprofen 2022-0 Yes [id number] 600mg Take 1 [facility] 600 mg 7-15 tablet by ity of tablet 00:00: mouth [place] 00 every 6 Medical (six) Branch hours as needed for Pain (scale 4-6). ibuprofen 2022-0 Yes [id number] 600mg Take 1 [facility] 600 mg 7-15 tablet by ity of tablet 00:00: mouth [place] 00 every 6 Medical (six) Branch hours as needed for Pain (scale 4-6). ibuprofen 2022-0 Yes [id number] 600mg Take 1 [facility] 600 mg 7-15 tablet by [facility] of tablet 00:00: mouth [place] 00 every 6 Medical (six) Branch hours as needed for Pain (scale 4-6). ibuprofen 2022-0 Yes [id number] 600mg Take 1 [facility] 600 mg 7-15 tablet by ity of tablet 00:00: mouth [place] 00 every 6 Medical (six) Branch hours as needed for Pain (scale 4-6). ibuprofen 2022-0 2022- No [id number] 600mg Take 1 [facility] 600 mg 7-15 10-18 tablet by ity of tablet 00:00: 00:00 mouth [place] 00 :00 every 6 Medical (six) Branch hours as needed for Pain (scale 4-6). ibuprofen 2021-0 2- No [id number] 600mg Take 1 [facility] 600 mg 7-15 10-18 tablet by ity of tablet 00:00: 00:00 mouth [place] 00 :00 every 6 Medical (six) Branch hours as needed for Pain (scale 4-6). ibuprofen 2021-0 2- No [id number] 600mg Take 1 [facility] 600 mg 7-15 10-18 tablet by [facility]y of tablet 00:00: 00:00 mouth [place] 00 :00 every 6 Medical (six) Branch hours as needed for Pain (scale 4-6). ibuprofen 2021-0 2- No [id number] 600mg Take 1 [facility] 600 mg 7-15 10-18 tablet by ity of tablet 00:00: 00:00 mouth [place] 00 :00 every 6 Medical (six) Branch hours as needed for Pain (scale 4-6). ibuprofen 2021-0 2021- No [id number] 600mg Take 1 [facility] 600 mg 7-15 10-18 tablet by [facility]y of tablet 00:00: 00:00 mouth [place] 00 :00 every 6 Medical (six) Branch hours as needed for Pain (scale 4-6). acetaminoph 2- No 4647 1{tbl} Take 1 [facility] n[facility] en-codeine -15 - tablet by ity of 300-30 mg 00:00: 00:00 mouth [place] tablet 00 :00 every 4 Medical (four) Branch hours as needed for Pain (scale 4-6). Indication s: acute pain acetaminoph 2021- No 4647 1{tbl} Take 1 [facility] n[facility] en-codeine -15 - tablet by ity of 300-30 mg 00:00: 00:00 mouth [place] tablet 00 :00 every 4 Medical (four) Branch hours as needed for Pain (scale 4-6). Indication s: acute pain bromphenira 2021-0 Yes [id number] 5mL Take 5 mL [facility] mine-pseudo 11-18 by mouth 4 it y of ephedrine-D 00:00: (four) [place] (BROMFED 00 times Medical DM) 2-30-10 daily as Bran ch mg/5 mL needed for syrup Congestion /Allergies or Cough. naproxen 2021-0 Yes [id number] 500mg Take 1 [facility] 500 mg 7-09 tablet by ity of tablet 00:00: mouth [place] 00 every 8 Medical (eight) Branch hours as needed for Pain (scale 4-6). cyclobenzap 2022-0 Yes [id number] 10mg Take 1 [facility] rine 10 mg 7-09 tablet by ity of tablet 00:00: mouth at [place] 00 bedtime as Medical needed for Branch Muscle Spasms. bromphenira 2022-0 Yes [id number] 5mL Take 5 mL [facility] mine-pseudo 7-09 by mouth 4 it y of ephedrine-D 00:00: (four) [place] [facility] (BROMFED 00 times Medical DM) 2-30-10 daily as Bran ch mg/5 mL needed for syrup Congestion /Allergies or Cough. naproxen 2021-0 Yes [id number] 500mg Take 1 [facility] 500 mg 7-09 tablet by ity of tablet 00:00: mouth [place] 00 every 8 Medical (eight) Branch hours as needed for Pain (scale 4-6). cyclobenzap 2021-0 Yes [id number] 10mg Take 1 [facility] rine 10 mg 7-09 tablet by ity of tablet 00:00: mouth at [place] 00 bedtime as Medical needed for Branch Muscle Spasms. bromphenira 2021-0 Yes [id number] 5mL Take 5 mL [facility] mine-pseudo 7-09 by mouth 4 it y of ephedrine-D 00:00: (four) [place] (BROMFED 00 times Medical DM) 2-30-10 daily as Bran ch mg/5 mL needed for syrup Congestion /Allergies or Cough. naproxen 2-0 Yes [id number] 500mg Take 1 [facility] 500 mg 7-09 tablet by ity of tablet 00:00: mouth [place] 00 every 8 Medical (eight) Branch hours as needed for Pain (scale 4-6). cyclobenzap 2022-0 Yes [id number] 10mg Take 1 [facility] rine 10 mg 7-09 tablet by ity of tablet 00:00: mouth at [place] 00 bedtime as Medical needed for Branch Muscle Spasms. bromphenira 2022-0 Yes [id number] 5mL Take 5 mL [facility] mine-pseudo 7-09 by mouth 4 it y of ephedrine-D 00:00: (four) [place] [facility] (BROMFED 00 times Medical DM) 2-30-10 daily as Bran ch mg/5 mL needed for syrup Congestion /Allergies or Cough. naproxen 2022-0 Yes [id number] 500mg Take 1 [facility] 500 mg 7-09 tablet by ity of tablet 00:00: mouth [place] 00 every 8 Medical (eight) Branch hours as needed for Pain (scale 4-6). cyclobenzap 2021-0 Yes [id number] 10mg Take 1 [facility] rine 10 mg 7-09 tablet by ity of tablet 00:00: mouth at [place] 00 bedtime as Medical needed for Branch Muscle Spasms. bromphenira 2021-0 Yes [id number] 5mL Take 5 mL [facility] mine-pseudo 7-09 by mouth 4 it y of ephedrine-D 00:00: (four) [place] (BROMFED 00 times Medical DM) 2-30-10 daily as Bran ch mg/5 mL needed for syrup Congestion /Allergies or Cough. naproxen 2021-0 Yes [id number] 500mg Take 1 [facility] 500 mg 7-09 tablet by ity of tablet 00:00: mouth [place] 00 every 8 Medical (eight) Branch hours as needed for Pain (scale 4-6). cyclobenzap 2021-0 Yes [id number] 10mg Take 1 [facility] rine 10 mg 7-09 tablet by ity of tablet 00:00: mouth at [place] 00 bedtime as Medical needed for Branch Muscle Spasms. bromphenira 2-0 Yes [id number] 5mL Take 5 mL [facility] mine-pseudo 7-09 by mouth 4 it y of ephedrine-D 00:00: (four) [place] (BROMFED 00 times Medical DM) 2-30-10 daily as Bran ch mg/5 mL needed for syrup Congestion /Allergies or Cough. naproxen 2022-0 Yes [id number] 500mg Take 1 [facility] 500 mg 7-09 tablet by ity of tablet 00:00: mouth [place] 00 every 8 Medical (eight) Branch hours as needed for Pain (scale 4-6). cyclobenzap 2022-0 Yes [id number] 10mg Take 1 [facility] rine 10 mg 7-09 tablet by ity of tablet 00:00: mouth at [place] 00 bedtime as Medical needed for Branch Muscle Spasms. bromphenira 2021-0 Yes [id number] 5mL Take 5 mL [facility] mine-pseudo 7-09 by mouth 4 it y of ephedrine-D 00:00: (four) [place] (BROMFED 00 times Medical DM) 2-30-10 daily as Bran ch mg/5 mL needed for syrup Congestion /Allergies or Cough. naproxen 2021-0 Yes [id number] 500mg Take 1 [facility] 500 mg 7-09 tablet by ity of tablet 00:00: mouth [place] 00 every 8 Medical (eight) Branch hours as needed for Pain (scale 4-6). cyclobenzap 2021-0 Yes [id number] 10mg Take 1 [facility] rine 10 mg 7-09 tablet by ity of tablet 00:00: mouth at [place] 00 bedtime as Medical needed for Branch Muscle Spasms. bromphenira 2021-0 Yes [id number] 5mL Take 5 mL [facility] mine-pseudo 7-09 by mouth 4 it y of ephedrine-D 00:00: (four) [place] (BROMFED 00 times Medical DM) 2-30-10 daily as Bran ch mg/5 mL needed for syrup Congestion /Allergies or Cough. naproxen 2021-0 Yes [id number] 500mg Take 1 [facility] 500 mg 7-09 tablet by ity of tablet 00:00: mouth [place] 00 every 8 Medical (eight) Branch hours as needed for Pain (scale 4-6). cyclobenzap 2021-0 Yes [id number] 10mg Take 1 [facility] rine 10 mg 7-09 tablet by ity of tablet 00:00: mouth at [place] 00 bedtime as Medical needed for Branch Muscle Spasms. bromphenira 2021-0 Yes [id number] 5mL Take 5 mL [facility] mine-pseudo 7-09 by mouth 4 it y of ephedrine-D 00:00: (four) [place] (BROMFED 00 times Medical DM) 2-30-10 daily as Bran ch mg/5 mL needed for syrup Congestion /Allergies or Cough. naproxen 2-0 Yes [id number] 500mg Take 1 [facility] 500 mg 7-09 tablet by ity of tablet 00:00: mouth [place] 00 every 8 Medical (eight) Branch hours as needed for Pain (scale 4-6). cyclobenzap 2022-0 Yes [id number] 10mg Take 1 [facility] rine 10 mg 7-09 tablet by ity of tablet 00:00: mouth at [place] 00 bedtime as Medical needed for Branch Muscle Spasms. bromphenira 2021-0 Yes [id number] 5mL Take 5 mL [facility] mine-pseudo 7-09 by mouth 4 it y of ephedrine-D 00:00: (four) [place] (BROMFED 00 times Medical DM) 2-30-10 daily as Bran ch mg/5 mL needed for syrup Congestion /Allergies or Cough. naproxen 2022-0 Yes [id number] 500mg Take 1 [facility] 500 mg 7-09 tablet by ity of tablet 00:00: mouth [place] 00 every 8 Medical (eight) Branch hours as needed for Pain (scale 4-6). cyclobenzap 2021-0 Yes [id number] 10mg Take 1 [facility] rine 10 mg 7-09 tablet by ity of tablet 00:00: mouth at [place] 00 bedtime as Medical needed for Branch Muscle Spasms. bromphenira 2021-0 Yes [id number] 5mL Take 5 mL [facility] mine-pseudo 7-09 by mouth 4 it y of ephedrine-D 00:00: (four) [place] (BROMFED 00 times Medical DM) 2-30-10 daily as Bran ch mg/5 mL needed for syrup Congestion /Allergies or Cough. naproxen 2-0 Yes [id number] 500mg Take 1 [facility] 500 mg 7-09 tablet by ity of tablet 00:00: mouth [place] 00 every 8 Medical (eight) Branch hours as needed for Pain (scale 4-6). cyclobenzap 2022-0 Yes [id number] 10mg Take 1 [facility] rine 10 mg 7-09 tablet by ity of tablet 00:00: mouth at [place] 00 bedtime as Medical needed for Branch Muscle Spasms. bromphenira 2022-0 Yes [id number] 5mL Take 5 mL [facility] mine-pseudo 7-09 by mouth 4 it y of ephedrine-D 00:00: (four) [place] (BROMFED 00 times Medical DM) 2-30-10 daily as Bran ch mg/5 mL needed for syrup Congestion /Allergies or Cough. bromphenira 2021-0 Yes [id number] 5mL Take 5 mL [facility] mine-pseudo 7-09 by mouth 4 it y of ephedrine-D 00:00: (four) [place] (BROMFED 00 times Medical DM) 2-30-10 daily as Bran ch mg/5 mL needed for syrup Congestion /Allergies or Cough. bromphenira 2022-0 Yes [id number] 5mL Take 5 mL [facility] mine-pseudo 7-09 by mouth 4 it y of ephedrine-D 00:00: (four) [place] (BROMFED 00 times Medical DM) 2-30-10 daily as Bran ch mg/5 mL needed for syrup Congestion /Allergies or Cough. bromphenira 2022-0 Yes [id number] 5mL Take 5 mL [facility] mine-pseudo 7-09 by mouth 4 it y of ephedrine-D 00:00: (four) [place] (BROMFED 00 times Medical DM) 2-30-10 daily as Bran ch mg/5 mL needed for syrup Congestion /Allergies or Cough. bromphenira 2-0 Yes [id number] 5mL Take 5 mL [facility] mine-pseudo 7-09 by mouth 4 it y of ephedrine-D 00:00: (four) [place] (BROMFED 00 times Medical DM) 2-30-10 daily as Bran ch mg/5 mL needed for syrup Congestion /Allergies or Cough. bromphenira 2-0 Yes [id number] 5mL Take 5 mL [facility] mine-pseudo 7-09 by mouth 4 it y of ephedrine-D 00:00: (four) [place] (BROMFED 00 times Medical DM) 2-30-10 daily as Bran ch mg/5 mL needed for syrup Congestion /Allergies or Cough. bromphenira 2022-0 Yes [id number] 5mL Take 5 mL [facility] mine-pseudo 7-09 by mouth 4 it y of ephedrine-D 00:00: (four) [place] (BROMFED 00 times Medical DM) 2-30-10 daily as Bran ch mg/5 mL needed for syrup Congestion /Allergies or Cough. bromphenira 2022-0 Yes [id number] 5mL Take 5 mL [facility] mine-pseudo 7-09 by mouth 4 it y of ephedrine-D 00:00: (four) [place] (BROMFED 00 times Medical DM) 2-30-10 daily as Bran ch mg/5 mL needed for syrup Congestion /Allergies or Cough. bromphenira 2-0 Yes [id number] 5mL Take 5 mL [facility] mine-pseudo 7-09 by mouth 4 it y of ephedrine-D 00:00: (four) [place] (BROMFED 00 times Medical DM) 2-30-10 daily as Bran ch mg/5 mL needed for syrup Congestion /Allergies or Cough. bromphenira 2021-0 Yes [id number] 5mL Take 5 mL [facility] mine-pseudo 7-09 by mouth 4 it y of ephedrine-D 00:00: (four) [place] (BROMFED 00 times Medical DM) 2-30-10 daily as Bran ch mg/5 mL needed for syrup Congestion /Allergies or Cough. bromphenira 2021-0 Yes [id number] 5mL Take 5 mL [facility] mine-pseudo 7-09 by mouth 4 it y of ephedrine-D 00:00: (four) [place] (BROMFED 00 times Medical DM) 2-30-10 daily as Bran ch mg/5 mL needed for syrup Congestion /Allergies or Cough. bromphenira 2021-0 Yes [id number] 5mL Take 5 mL [facility] mine-pseudo 7-09 by mouth 4 it y of ephedrine-D 00:00: (four) [place] (BROMFED 00 times Medical DM) 2-30-10 daily as Bran ch mg/5 mL needed for syrup Congestion /Allergies or Cough. bromphenira 2021-0 Yes [id number] 5mL Take 5 mL [facility] mine-pseudo 7-09 by mouth 4 it y of ephedrine-D 00:00: (four) [place] (BROMFED 00 times Medical DM) 2-30-10 daily as Bran ch mg/5 mL needed for syrup Congestion /Allergies or Cough. bromphenira 2-0 Yes [id number] 5mL Take 5 mL [facility] mine-pseudo 7-09 by mouth 4 it y of ephedrine-D 00:00: (four) [place] (BROMFED 00 times Medical DM) 2-30-10 daily as Bran ch mg/5 mL needed for syrup Congestion /Allergies or Cough. bromphenira No [id number] 5mL Take 5 mL [facility] mine-pseudo 11-18-12 by mouth 4 i ty of ephedrine-D 00:00: 00:00 (four) [place] (BROMFED 00 :00 times Medical DM) 2-30-10 daily as Bran ch mg/5 mL needed for syrup Congestion /Allergies or Cough. bromphenira No [id number] 5mL Take 5 mL [facility] mine-pseudo 11-18 by mouth 4 i ty of ephedrine-D 00:00: 00:00 (four) [place] (BROMFED 00 :00 times Medical DM) 2-30-10 daily as Bran ch mg/5 mL needed for syrup Congestion /Allergies or Cough. naproxen No [id number] 500mg Take 1 [facility] 500 mg 7- 10-18 tablet by ity of tablet 00:00: 00:00 mouth [place] 00 :00 every 8 Medical (eight) Branch hours as needed for Pain (scale 4-6). cyclobenzap No [id number] 10mg Take 1 [facility] rine 10 mg 7- 10-18 tablet by ity of tablet 00:00: 00:00 mouth at [place] 00 :00 bedtime as Medical needed for Branch Muscle Spasms. naproxen No [id number] 500mg Take 1 [facility] 500 mg 7- 10-18 tablet by ity of tablet 00:00: 00:00 mouth [place] 00 :00 every 8 Medical (eight) Branch hours as needed for Pain (scale 4-6). cyclobenzap No [id number] 10mg Take 1 [facility] rine 10 mg 7- 10-18 tablet by ity of tablet 00:00: 00:00 mouth at [place] 00 :00 bedtime as Medical needed for Branch Muscle Spasms. naproxen No [id number] 500mg Take 1 [facility] 500 mg 7- 10-18 tablet by ity of tablet 00:00: 00:00 mouth [place] 00 :00 every 8 Medical (eight) Branch hours as needed for Pain (scale 4-6). cyclobenzap No [id number] 10mg Take 1 [facility] rine 10 mg 7- 10-18 tablet by ity of tablet 00:00: 00:00 mouth at [place] 00 :00 bedtime as Medical needed for Branch Muscle Spasms. naproxen No [id number] 500mg Take 1 [facility] 500 mg 7- 10-18 tablet by ity of tablet 00:00: 00:00 mouth [place] 00 :00 every 8 Medical (eight) Branch hours as needed for Pain (scale 4-6). cyclobenzap No [id number] 10mg Take 1 [facility] rine 10 mg 7- 10-18 tablet by ity of tablet 00:00: 00:00 mouth at [place] 00 :00 bedtime as Medical needed for Branch Muscle Spasms. naproxen No [id number] 500mg Take 1 [facility] 500 mg 7- 10-18 tablet by ity of tablet 00:00: 00:00 mouth [place] 00 :00 every 8 Medical (eight) Branch hours as needed for Pain (scale 4-6). cyclobenzap No [id number] 10mg Take 1 [facility] rine 10 mg 7- 10-18 tablet by ity of tablet 00:00: 00:00 mouth at [place] 00 :00 bedtime as Medical needed for Branch Muscle Spasms. ibuprofen Yes [id number] 605mg Take 30.25 [facility] 100 mg/5 mL 6-15 mL by ity of oral 00:00: mouth [place] 00 every 6 Medica l (six) Branch hours as needed for Pain (scale 4-6) or Temp > 38.5 C. ibuprofen Yes [id number] 605mg Take 30.25 [facility] 100 mg/5 mL 6-15 mL by ity of oral 00:00: mouth [place] suspension 00 every 6 Medica l (six) Branch hours as needed for Pain (scale 4-6) or Temp > 38.5 C. ibuprofen Yes [id number] 605mg Take 30.25 [facility] 100 mg/5 mL 6-15 mL by ity of oral 00:00: mouth [place] suspension 00 every 6 Medica l (six) Branch hours as needed for Pain (scale 4-6) or Temp > 38.5 C. ibuprofen 2-0 Yes [id number] 605mg Take 30.25 [facility] 100 mg/5 mL 6-15 mL by ity of oral 00:00: mouth [place] suspension 00 every 6 Medica l (six) Branch hours as needed for Pain (scale 4-6) or Temp > 38.5 C. ibuprofen 2021-0 Yes [id number] 605mg Take 30.25 [facility] 100 mg/5 mL 6-15 mL by ity of oral 00:00: mouth [place] suspension 00 every 6 Medica l (six) Branch hours as needed for Pain (scale 4-6) or Temp > 38.5 C. ibuprofen 2021-0 Yes [id number] 605mg Take 30.25 [facility] 100 mg/5 mL 6-15 mL by ity of oral 00:00: mouth [place] suspension 00 every 6 Medica l (six) Branch hours as needed for Pain (scale 4-6) or Temp > 38.5 C. ibuprofen 2021-0 Yes [id number] 605mg Take 30.25 [facility] 100 mg/5 mL 6-15 mL by ity of oral 00:00: mouth [place] suspension 00 every 6 Medica l (six) Branch hours as needed for Pain (scale 4-6) or Temp > 38.5 C. ibuprofen 2021-0 Yes [id number] 605mg Take 30.25 [facility] 100 mg/5 mL 6-15 mL by ity of oral 00:00: mouth [place] suspension 00 every 6 Medica l (six) Branch hours as needed for Pain (scale 4-6) or Temp > 38.5 C. ibuprofen 2021-0 Yes [id number] 605mg Take 30.25 [facility] 100 mg/5 mL 6-15 mL by ity of oral 00:00: mouth [place] suspension 00 every 6 Medica l (six) Branch hours as needed for Pain (scale 4-6) or Temp > 38.5 C. ibuprofen 202-0 Yes [id number] 605mg Take 30.25 [facility] 100 mg/5 mL 6-15 mL by ity of oral 00:00: mouth [place] suspension 00 every 6 Medica l (six) Branch hours as needed for Pain (scale 4-6) or Temp > 38.5 C. ibuprofen 2021-0 Yes [id number] 605mg Take 30.25 [facility] 100 mg/5 mL 6-15 mL by ity of oral 00:00: mouth [place] suspension 00 every 6 Medica l (six) Branch hours as needed for Pain (scale 4-6) or Temp > 38.5 C. ibuprofen 2021- No [id number] 605mg Take 30.25 [facility] 100 mg/5 mL 6-15 10-18 mL by ity of oral 00:00: 00:00 mouth [place] suspension 00 :00 every 6 Medica l (six) Branch hours as needed for Pain (scale 4-6) or Temp > 38.5 C. ibuprofen 2021- No [id number] 605mg Take 30.25 [facility] 100 mg/5 mL 6-15 10-18 mL by ity of oral 00:00: 00:00 mouth [place] suspension 00 :00 every 6 Medica l (six) Branch hours as needed for Pain (scale 4-6) or Temp > 38.5 C. ibuprofen 2021- No [id number] 605mg Take 30.25 [facility] 100 mg/5 mL 6-15 10-18 mL by ity of oral 00:00: 00:00 mouth [place] suspension 00 :00 every 6 Medica l (six) Branch hours as needed for Pain (scale 4-6) or Temp > 38.5 C. ibuprofen 2021- No [id number] 605mg Take 30.25 [facility] 100 mg/5 mL 6-15 10-18 mL by ity of oral 00:00: 00:00 mouth [place] suspension 00 :00 every 6 Medica l (six) Branch hours as needed for Pain (scale 4-6) or Temp > 38.5 C. ibuprofen 2021- No [id number] 605mg Take 30.25 [facility] 100 mg/5 mL 6-15 10-18 mL by ity of oral 00:00: 00:00 mouth [place] suspension 00 :00 every 6 Medica l (six) Branch hours as needed for Pain (scale 4-6) or Temp > 38.5 C. acetaminoph 2021-2021- No [id number] 608mg Take 19 mL [facility] en 160 mg/5 6-15 08-02 by mouth ity of mL liquid 00:00: 00:00 every 6 [place] 00 :[place] (six) Medical hours as Branch needed for Fever. acetaminoph 2021-0 2- No [id number] 608mg Take 19 mL [facility] en 160 mg/5 6-15 08-02 by mouth ity of mL liquid 00:00: 00:00 every 6 [place] 00 :00 (six) Medical hours as Branch needed for Fever. DULoxetine 2021-0 Yes [facility] 60 mg 5-27 ity of capsule 00:00: [place] 00 Medical Branch DULoxetine 2021-0 Yes [facility] 60 mg 5-27 ity of capsule 00:00: [place] 00 Medical Branch DULoxetine 2021-0 Yes [facility] 60 mg 5-27 ity of capsule 00:00: [place] [address] Medical Branch DULoxetine 2021-0 Yes [facility] 60 mg 5-27 ity of capsule 00:00: [place] 00 Medical Branch DULoxetine 2021-0 Yes [facility] 60 mg 5-27 ity of capsule 00:00: [place] 00 Medical Branch DULoxetine 2021-0 Yes [facility] 60 mg 5-27 ity of capsule 00:00: [place] [address] Medical Branch DULoxetine 2021-0 Yes [facility] 60 mg 5-27 ity of capsule 00:00: [place] 00 Medical Branch DULoxetine 2021-0 Yes [facility] 60 mg 5-27 ity of capsule 00:00: [place] [address] Medical Branch DULoxetine 2021-0 Yes [facility] 60 mg 5-27 ity of capsule 00:00: [place] [address] Medical Branch DULoxetine 2021-0 Yes [facility] 60 mg 5-27 ity of capsule 00:00: [place] [address] Medical Branch DULoxetine 2-0 Yes [facility] 60 mg 5-27 ity of capsule 00:00: [place] 00 Medical Branch DULoxetine 2-0 2- No Univer [...] [place] 00 :00 Medical Branch DULoxetine 2-0 2- No Univer s 60 mg 5-27 10-18 ity of capsule 00:00: 00:00 [place] 00 :00 Medical Branch traZODone 2021-0 2021- No [facility] 50 mg 5-27 08 ity of tablet 00:00: 00:00 [place] 00 :00 Medical Branch mometasone 2021-0 Yes [id number] 1{spray Use 1 [facility] 50 5-19 } [place] in ity of mcg/actuati 00:00: each [place] on nasal 00 nostril 2 Medica l spray (two) Branch times daily. mometasone 2021-0 Yes [id number] 1{spray Use 1 [facility] 50 5-19 } [place] in ity of mcg/actuati 00:00: each [place] on nasal 00 nostril 2 Medica l spray (two) Branch times daily. mometasone 2021-0 Yes [id number] 1{spray Use 1 [facility] 50 5-19 } [place] in ity of mcg/actuati 00:00: each [place] on nasal 00 nostril 2 Medica l spray (two) Branch times daily. mometasone 2021-0 Yes [id number] 1{spray Use 1 [facility] 50 5-19 } [place] in ity of mcg/actuati 00:00: each [place] on nasal 00 nostril 2 Medica l spray (two) Branch times daily. mometasone 2021-0 Yes [id number] 1{spray Use 1 [facility] 50 5-19 } [place] in ity of mcg/actuati 00:00: each [place] on nasal 00 nostril 2 Medica l spray (two) Branch times daily. mometasone 2021-0 Yes [id number] 1{spray Use 1 [facility] 50 5-19 } [place] in ity of mcg/actuati 00:00: each [place] on nasal 00 nostril 2 Medica l spray (two) Branch times daily. mometasone 2021-0 Yes [id number] 1{spray Use 1 [facility] 50 5-19 } [place] in ity of mcg/actuati 00:00: each [place] on nasal 00 nostril 2 Medica l spray (two) Branch times daily. mometasone 2021-0 Yes [id number] 1{spray Use 1 [facility] 50 5-19 } [place] in ity of mcg/actuati 00:00: each [place] on nasal 00 nostril 2 Medica l spray (two) Branch times daily. mometasone 2021-0 Yes [id number] 1{spray Use 1 [facility] 50 5-19 } [place] in ity of mcg/actuati 00:00: each [place] on nasal 00 nostril 2 Medica l spray (two) Branch times daily. mometasone Yes [id number] 1{spray Use 1 [facility] 50 5-19 } [place] in ity of mcg/actuati 00:00: each [place] on nasal 00 nostril 2 Medica l spray (two) Branch times daily. mometasone Yes [id number] 1{spray Use 1 [facility] 50 5-19 } [place] in ity of mcg/actuati 00:00: each [place] on nasal 00 nostril 2 Medica l spray (two) Branch times daily. mometasone 2021- No [id number] 1{spray Use 1 [facility] 50 5-19 10-18 } [place] in ity of mcg/actuati 00:00: 00:00 each [place] on nasal 00 :00 nostril 2 Medica l spray (two) Branch times daily. mometasone 2021- No [id number] 1{spray Use 1 [facility] 50 5-19 10-18 } [place] in ity of mcg/actuati 00:00: 00:00 each [place] on nasal 00 :00 nostril 2 Medica l spray (two) Branch times daily. mometasone 2021- No [id number] 1{spray Use 1 [facility] 50 5-19 10-18 } [place] in ity of mcg/actuati 00:00: 00:00 each [place] on nasal 00 :00 nostril 2 Medica l spray (two) Branch times daily. mometasone 2021- No [id number] 1{spray Use 1 [facility] 50 5-19 10-18 } [place] in ity of mcg/actuati 00:00: 00:00 each [place] on nasal 00 :00 nostril 2 Medica l spray (two) Branch times daily. mometasone 2021- No [id number] 1{spray Use 1 [facility] 50 5-19 10-18 } [place] in ity of mcg/actuati 00:00: 00:00 each [place] on nasal 00 :00 nostril 2 Medica l spray (two) Branch times daily. cetirizine Yes [id number] 10mg Take 1 U nivers (ZYRTEC) 10 5-16 tablet by ity of mg tablet 00:00: mouth [place] 00 daily. [facility] Branch cetirizine Yes [id number] 10mg Take 1 U nivers (ZYRTEC) 10 5-16 tablet by ity of mg tablet 00:00: mouth [place] 00 daily. [facility] Branch cetirizine Yes [id number] 10mg Take 1 U nivers (ZYRTEC) 10 5-16 tablet by ity of mg tablet 00:00: mouth [place] 00 daily. Medical Branch cetirizine Yes [id number] 10mg Take 1 U nivers (ZYRTEC) 10 5-16 tablet by ity of mg tablet 00:00: mouth [place] 00 daily. [facility] Branch cetirizine Yes [id number] 10mg Take 1 U nivers (ZYRTEC) 10 5-16 tablet by ity of mg tablet 00:00: mouth [place] 00 daily. [facility] Branch cetirizine Yes [id number] 10mg Take 1 U nivers (ZYRTEC) 10 5-16 tablet by ity of mg tablet 00:00: mouth [place] 00 daily. [facility] Branch cetirizine Yes [id number] 10mg Take 1 U nivers (ZYRTEC) 10 5-16 tablet by ity of mg tablet 00:00: mouth [place] 00 daily. [facility] Branch cetirizine Yes [id number] 10mg Take 1 U nivers (ZYRTEC) 10 5-16 tablet by ity of mg tablet 00:00: mouth [place] 00 daily. Medical Branch cetirizine Yes [id number] 10mg Take 1 U nivers (ZYRTEC) 10 5-16 tablet by ity of mg tablet 00:00: mouth [place] 00 daily. [facility] Branch cetirizine 0 Yes [id number] 10mg Take 1 U nivers (ZYRTEC) 10 5-16 tablet by ity of mg tablet 00:00: mouth [place] 00 daily. [facility] Branch cetirizine Yes [id number] 10mg Take 1 U nivers (ZYRTEC) 10 5-16 tablet by ity of mg tablet 00:00: mouth [place] 00 daily. [facility] Branch cetirizine 2021- No [id number] 10mg Take 1 [facility] (ZYRTEC) 10 5-16 10-18 tablet by it y of mg tablet 00:00: 00:00 mouth [place] 00 :00 daily. Medical Branch cetirizine 2021- No [id number] 10mg Take 1 [facility] (ZYRTEC) 10 5-16 10-18 tablet by it y of mg tablet 00:00: 00:00 mouth [place] 00 :00 daily. Medical Branch cetirizine 2021- No [id number] 10mg Take 1 [facility] (ZYRTEC) 10 5-16 10-18 tablet by it y of mg tablet 00:00: 00:00 mouth [place] 00 :00 daily. Medical Branch cetirizine 2021- No [id number] 10mg Take 1 [facility] (ZYRTEC) 10 5-16 10-18 tablet by it y of mg tablet 00:00: 00:00 mouth [place] 00 :00 daily. Medical Branch cetirizine 2021- No [id number] 10mg Take 1 [facility] (ZYRTEC) 10 5-16 [...] mg tablet 5-09 ity of 00:00: [place] [facility] DULoxetine 2022-0 Yes [facility] 30 mg 5-09 ity of capsule 00:00: [place] [address] [facility] gabapentin 2022-0 Yes [facility] 300 mg 5-09 ity of capsule 00:00: [place] [facility] ondansetron 2022-0 Yes Univer s 4 mg tablet 5-09 ity of 00:00: [place] [address] [facility] Branch DULoxetine 2022-0 Yes [facility] 30 mg 5-09 ity of capsule 00:00: [place] [address] [facility] Branch gabapentin 2022-0 Yes [facility] 300 mg 5-09 ity of capsule 00:00: [place] 00 [facility] ondansetron 2022-0 Yes Univer s 4 mg tablet 5-09 ity of 00:00: [place] [facility] DULoxetine 2022-0 Yes [facility] 30 mg 5-09 ity of capsule 00:00: [place] 00 [facility] gabapentin 2022-0 Yes [facility] 300 mg 5-09 ity of capsule 00:00: [place] 00 [facility] ondansetron 2022-0 Yes Univer s 4 mg tablet 5-09 ity of 00:00: [place] [address] [facility] DULoxetine 2022-0 Yes [facility] 30 mg 5-09 ity of capsule 00:00: [place] [address] [facility] gabapentin 2022-0 Yes [facility] 300 mg 5-09 ity of capsule 00:00: [place] [address] [facility] Branch ondansetron 2022-0 Yes Univer s 4 mg tablet 5-09 ity of 00:00: [place] 00 [facility] DULoxetine 2022-0 Yes [facility] 30 mg 5-09 ity of capsule 00:00: [place] 00 [facility] gabapentin 2022-0 Yes [facility] 300 mg - ity of capsule 00:00: [place] 00 [facility] ondansetron 2022-0 Yes Univer s 4 mg tablet - ity of 00:00: [place] 00 [facility] DULoxetine 2022-0 Yes [facility] 30 mg - ity of capsule 00:00: [place] 00 [facility] gabapentin 2022-0 Yes [facility] 300 mg - ity of capsule 00:00: [place] 00 [facility] ondansetron 2022-0 Yes Univer s 4 mg tablet 09-18 ity of 00:00: [place] 00 [facility] DULoxetine 2022-0 2022- No [...] 5-09 10-18 ity of capsule 00:00: 00:00 [place] 00 :00 Medical Branch gabapentin 2022-0 2- No Univer s 300 mg 09-18 ity of capsule 00:00: 00:00 [place] 00 :00 Medical Branch ondansetron 2022-0 2- No Unive rs 4 mg tablet 09-18 ity of 00:00: 00:00 [place] 00 :00 Medical [facility] DULoxetine 2022-0 2021- No Univer s 30 mg 09-18 ity [...] ity of 00:00: [place] [facility] amLODIPine 2-0 Yes [facility] 5 mg tablet 4-22 ity of 00:00: [place] [facility] amLODIPine 2022-0 Yes 5mg Take 5 mg Un sushant 5 mg tablet 4-22 by mouth. ity of 00:00: [place] [facility] amLODIPine 2-0 Yes [facility] 5 mg tablet 4-22 ity of 00:00: [place] [facility] amLODIPine 2022-0 Yes 5mg Take 5 mg Un sushant 5 mg tablet 4-22 by mouth. ity of 00:00: [place] [facility] amLODIPine 2022-0 2022- No Univer s 5 mg tablet -02-27 ity of 00:00: 00:00 [place] 00 :00 Medical Branch amLODIPine 2022-0 2022- No 5mg Take 5 mg U nivers 5 mg tablet -22 02-27 by mouth. it y of 00:00: 00:00 [place] 00 :00 Medical Branch amLODIPine 2022-0 2022- No Univer s 5 mg tablet -22 02-27 ity of 00:00: 00:00 [place] 00 :00 [...] 00:00 [place] 00 :00 [facility] buPROPion 2021-0 Yes [...] tablet 00 :00 Medical Branch buPROPion 2021-0 2- No 150mg Take 150 Un sushant [...] 00 :00 Medical Branch proMETHazin 2021- No [id number] 25mg Take 1 [facility] e 25 mg 4-05 05-03 tablet by ity of tablet 00:00: 00:00 mouth [place] 00 :00 every 6 Medical (six) Branch hours as needed for Nausea and Vomiting (N/V). traMADoL 50 No [id number] 50mg Take 1 [facility] vers mg tablet 4- 05-03 tablet by ity of 00:00: 00:00 mouth [place] 00 :00 every 6 Medical (six) Branch hours as needed (pain). Indication s: acute pain proMETHazin 2021- No [id number] 25mg Take 1 [facility] e 25 mg [...] Indication s: acute pain proMETHazin 2021- No [id number] 25mg Take 1 [facility] e 25 mg 4-05 05-03 tablet by ity of tablet 00:00: 00:00 mouth [place] 00 :00 every 6 Medical (six) Branch hours as needed for Nausea and Vomiting (N/V). traMADoL 50 No [id number] 50mg Take 1 [facility] vers mg tablet 4-05 05-03 tablet by ity of 00:00: 00:00 mouth [place] 00 :00 every 6 Medical (six) Branch hours as needed (pain). Indication s: acute pain cyclobenzap 2021- No [id number] 10mg Take 1 [facility] rine 10 mg 08-07 tablet by ity of tablet 00:00: 04:59 mouth 3 [place] 00 :00 (three) Medical times Branch daily for 14 days. ibuprofen 2021- No [id number] 800mg Take 1 [facility] 800 mg 08-07- [...] SR 08-01 ity of tablet 00:00: 00:00 [place] 00 :00 Medical Branch diclofenac 2021- No Univer s 75 mg EC 08-01 ity of tablet 00:00: 00:00 [place] 00 :00 Medical Branch orphenadrin 2021- No Unive rs e 100 mg SR 08-01 ity of tablet 00:00: 00:00 [place] 00 :00 Medical Branch divalproex 2021- No [id number] 125mg Take 1 [facility] 125 mg EC 07-21 tablet by ity of tablet 00:00: 00:00 mouth [place] 00 :00 every 12 Medical (twelve) Branch hours. divalproex 2021- No Univer s Sprinkles 07-21- ity of 125 mg 00:00: 00:00 [place] SPRINKLE 00 :00 Medical capsule Branch divalproex 2021- No [id number] 125mg Take 1 [facility] 125 mg EC 07-21- tablet by ity of tablet 00:00: 00:00 mouth [place] 00 :00 every 12 Medical (twelve) Branch hours. divalproex 2021-0 2021- No Univer s Sprinkles 07-21-03 ity of 125 mg 00:00: 00:00 [place] SPRINKLE 00 :00 Medical capsule Branch divalproex 2021- No [id number] 125mg Take 1 [facility] 125 mg EC 07-21- tablet by ity of tablet 00:00: 00:00 mouth [place] 00 :00 every 12 Medical (twelve) Branch hours. ibuprofen 2021- No [id number] 600mg Take 1 [facility] 600 mg 07-17 [...] PAIN FOR 2 DAYS fluticasone 2021- No [id number] 2{puff} Inhale 2 [facility] propionate 1-19 05-19 Puffs ity of 110 00:00: 00:00 every 12 [place] mcg/actuati 00 :00 (twelve) Medi yessi on inhaler hours. Branch fluticasone 2021- No [id number] 2{puff} Inhale 2 [facility] propionate 1-19 05-19 Puffs ity of 110 00:00: 00:00 every 12 [place] mcg/actuati 00 :00 (twelve) Medi yessi on inhaler hours. Branch fluticasone 2021- No [id number] 2{puff} Inhale 2 [facility] propionate 1-19 05-19 Puffs ity of 110 00:00: 00:00 every 12 [place] mcg/actuati 00 :00 (twelve) Medi yessi on inhaler hours. Branch fluticasone 2021- No [id number] 2{puff} Inhale 2 [facility] propionate 1-19 05-19 Puffs ity of 110 00:00: 00:00 every 12 [place] mcg/actuati 00 :00 (twelve) Medi yessi on inhaler hours. Branch benzonatate 2021- No [id number] 100mg Take 1 [facility] (TESSALON 1-13 05-16 capsule by [place]) 100 00:00: 00:00 [place] mg capsule 00 :00 every 8 Medica l (eight) Branch hours as needed for Cough. benzonatate 2021- No [id number] 100mg Take 1 [facility] (TESSALON 1-13 05-16 capsule by [place]) 100 00:00: 00:00 mouth [place] mg capsule 00 :00 every 8 Medica l (eight) Branch hours as needed for Cough. benzonatate 2021- No [id number] 100mg Take 1 [facility] (TESSALON 113 05-16 capsule by [place]) 100 00:00: 00:00 mouth [place] mg capsule 00 :00 every 8 Medica l (eight) Branch hours as needed for Cough. benzonatate 2021- No [id number] 100mg Take 1 [facility] (TESSALON 1-13 05-16 capsule by ankush REUBEN) 100 00:00: 00:00 mouth [place] mg capsule 00 :00 every 8 Medica l (eight) Branch hours as needed for Cough. carvediloL 2020-05 Yes 25mg Take 1 Unive rs 25 mg 2-30 tablet by ity of tablet 00:00: mouth 2 [place] (two) Medical times Branch daily with meals. losartan 50 2020-05 Yes 50mg Take 1 [facility] ers mg tablet 2-30 tablet by ity o f 00:00: mouth 2 (two) Medical times Branch daily. carvediloL 2020-05 Yes 25mg Take 1 Unive rs 25 mg 2-30 tablet by ity of tablet 00:00: mouth 2 [place] (two) Medical times Branch daily with meals. [...] 00:00 [place] 00 :00 Medical Branch proMETHazin 2020-05- No Unive rs e 25 mg -03 ity of tablet 00:00: 00:00 [place] 00 :00 Medical Branch proMETHazin 2020-05- No Unive rs e 25 mg -03 ity of tablet 00:00: 00:00 [place] 00 :00 Medical Branch methocarbam 2020-05- No [id number] 500mg Take 1 [facility] oL 2 01-13 tablet by ity of (ROBAXIN) 00:00: 00:00 mouth [place] 500 mg 00 :00 every 6 Medical tablet (six) Branch hours as needed (MUSCLE SPASM). vitamin 2020-05- No [id number] 500ug Take 1 U nivers B-12 05-18 tablet by ity of (VITAMIN 00:00: 00:00 mouth [place] B-12) 500 00 :00 daily. Medical mcg tablet Branch vitamin 2020-05- No [id number] 500ug Take 1 U nivers B-12 05-18 tablet by ity of (VITAMIN 00:00: 00:00 mouth [place] B-12) 500 00 :00 daily. Medical mcg tablet Branch vitamin 2020-05- No [id number] 500ug Take 1 U nivers B-12 05-18 tablet by ity of (VITAMIN 00:00: 00:00 mouth [place] B-12) 500 00 :00 daily. Medical mcg tablet Branch vitamin 2020-05- No [id number] 500ug Take 1 U nivers B-12 05-18 tablet by ity of (VITAMIN 00:00: 00:00 mouth [place] B-12) 500 00 :00 daily. Medical mcg tablet Branch vitamin 2020-05- No [id number] 500ug Take 1 U nivers B-12 05-18 tablet by ity of (VITAMIN 00:00: 00:00 mouth [place] B-12) 500 00 :00 daily. Medical mcg tablet Branch vitamin 2020-05- No [id number] 500ug Take 1 U nivers B-12 05-18 tablet by ity of (VITAMIN 00:00: 00:00 mouth [place] B-12) 500 00 :00 daily. Medical mcg tablet Branch vitamin 2020-05- No [id number] 500ug Take 1 U nivers B-12 05-18 tablet by ity of (VITAMIN 00:00: 00:00 mouth [place] B-12) 500 00 :00 daily. Medical mcg tablet Branch methylPREDN 2020-05- No [id number] Follow [place] [facility] ISolone 4 05-16 package ity of mg tablets 00:00: 00:00 directions [place] 00 :00 Medical Branch methylPREDN 2020-05- No [id number] Follow [facility] ISolone 4 05-16 package ity of mg tablets 00:00: 00:00 directions 00 :00 Medical Branch methylPREDN 2020-052- No [id number] Follow [facility] ISolone 4 05-16 package ity of mg tablets 00:00: 00:00 directions 00 :00 Medical Branch fluticasone 2021- No [id number] 2{puff} Inhale 2 [facility] propion-chel -11 06-13 Puffs 2 ity of meteroL 00:00: 00:00 (two) [place] 115- 00 :00 times Medical mcg/actuati daily. Branch on inhaler Rinse mouth after each use. albuterol 2021- No [id number] 2.5mg Inhale 3 [facility] 2.5 mg /3 02-09-13 mL every 6 ity of mL (0.083 00:00: 00:00 (six) [place] %) 00 :00 hours as Medical nebulizer needed for Bran ch solution Wheezing or Shortness of Breath. fluticasone 2021- No [id number] 2{puff} Inhale 2 [facility] propion-chel -11 06-13 Puffs 2 ity of meteroL 00:00: 00:00 (two) [place] 115- 00 :00 times Medical mcg/actuati daily. Branch on inhaler Rinse mouth after each use. albuterol 2021- No [id number] 2.5mg Inhale 3 [facility] 2.5 mg /3 02-09-13 mL every 6 ity of mL (0.083 00:00: 00:00 (six) [place] %) 00 :00 hours as Medical nebulizer needed for Bran ch solution Wheezing or Shortness of Breath. fluticasone 2021- No [id number] 2{puff} Inhale 2 [facility] propion-chel 9-30 -13 Puffs 2 ity of meteroL 00:00: 00:00 (two) [place] 115-21 00 :00 times Medical mcg/actuati daily. Branch on inhaler Rinse mouth after each use. albuterol 2021- No [id number] 2.5mg Inhale 3 Univers 2.5 mg /3 02-09-13 mL every 6 ity of mL (0.083 00:00: 00:00 (six) [place] %) 00 :00 hours as Medical nebulizer needed for Bran ch solution Wheezing or Shortness of Breath. fluticasone 2021- No [id number] 2{puff} Inhale 2 [facility] propion-chel 02-09 01-13 Puffs 2 ity of meteroL 00:00: 00:00 (two) [place] 115-21 00 :00 times Medical mcg/actuati daily. Branch on inhaler Rinse mouth after each use. albuterol 2021- No [id number] 2.5mg Inhale 3 [facility] 2.5 mg /3 02-0913 mL every 6 ity of mL (0.083 00:00: 00:00 (six) [place] %) 00 :00 hours as Medical nebulizer needed for Bran ch solution Wheezing or Shortness of Breath. methocarbam 2020- No [id number] 500mg Take 1 [facility] oL 02-09 tablet by ity of (ROBAXIN) 00:00: 00:00 mouth [place] 500 mg 00 :00 every 6 Medical tablet (six) Branch hours as needed (MUSCLE SPASM). methocarbam 2020- No [id number] 500mg Take 1 [facility] oL 02-09 tablet by ity of (ROBAXIN) 00:00: 00:00 mouth [place] 500 mg 00 :00 every 6 Medical tablet (six) Branch hours as needed (MUSCLE SPASM). bromphenira 2020- No [id number] 5mL Take 5 mL [facility] mine-pseudo 01-31 by mouth 4 i ty of ephedrine-D 00:00: 00:00 (four) [place] as M (BROMFED 00 :00 times Medical DM) 2-30-10 daily as Bran ch mg/5 mL needed for syrup Cough. methylPREDN 2020- No [id number] Take by [facility] ISolone 01-20 mouth ity of (MEDROL, 00:00: 00:00 SEE-INSTRU [place] A[place],) 4 mg 00 :00 CTIONS. Medica l tablets follow Branch package directions methylPREDN 2020- No [id number] Take by [facility] ISolone 01-20 mouth ity of (MEDROL, 00:00: 00:00 [place]-INSTRU [place] 4 mg 00 :00 CTIONS. Medica l tablets follow Branch package directions methylPREDN 2020- No [id number] Take by [facility] 01-20 mouth ity of (MEDROL, 00:00: 00:00 [place]-INSTRU [place] 4 mg 00 :00 CTIONS. Medica l tablets follow Branch package directions albuterol 2021- No [id number] 2{puff} Inhale 2 [place] [address] 01-12 [id number] Puffs ity of mcg/actuati 00:00: 00:00 every 4 [place] on inhaler 00 :00 (four) Medical hours as Branch needed for Wheezing or Shortness of Breath. albuterol 2021- No [id number] 2{puff} Inhale 2 [place] [address] 01-12 [id number] Puffs ity of mcg/actuati 00:00: 00:00 every 4 [place] on inhaler 00 :00 (four) Medical hours as Branch needed for Wheezing or Shortness of Breath. albuterol 2021- No [id number] 2{puff} Inhale 2 [place] [address] 01-12 [id number] Puffs ity of mcg/actuati 00:00: 00:00 every 4 [place] on inhaler 00 :00 (four) Medical hours as Branch needed for Wheezing or Shortness of Breath. albuterol 2021- No [id number] 2{puff} Inhale 2 [place] [address] 01-12 [id number] Puffs ity of mcg/actuati 00:00: 00:00 every 4 [place] on inhaler 00 :00 (four) Medical hours as Branch needed for Wheezing or Shortness of Breath. albuterol 2021- No [id number] 2{puff} Inhale 2 [place] [address] 01-12 [id number] Puffs ity of mcg/actuati 00:00: 00:00 every 4 [place] inhaler 00 :00 (four) Medical hours as Branch needed for Wheezing or Shortness of Breath. albuterol 2021- No [id number] 2{puff} Inhale 2 Univers 90 01-12 [id number] Puffs ity of mcg/actuati 00:00: 00:00 every 4 [place] on inhaler 00 :00 (four) Medical hours as Branch needed for Wheezing or Shortness of Breath. albuterol 2021- No [id number] 2{puff} Inhale 2 [place] [facility] 90 01-12 [id number] Puffs ity of mcg/actuati 00:00: 00:00 every 4 [place] on inhaler 00 :00 (four) Medical hours as Branch needed for Wheezing or Shortness of Breath. benzonatate 2020- No [id number] 100mg Take 1 [facility] 100 mg 01-12 [id number] capsule by ity of capsule 00:00: 00:00 mouth 3 [place] 00 :00 (three) Medical times Branch daily as needed for Cough. benzonatate 2020- No [id number] 100mg Take 1 [facility] 100 mg 01-12 [id number] capsule by ity of capsule 00:00: 00:00 mouth 3 [place] 00 :00 (three) Medical times Branch daily as needed for Cough. benzonatate 2020- No [id number] 100mg Take 1 [facility] 100 mg 01-12 [id number] capsule by ity of capsule 00:00: 00:00 mouth 3 [place] 00 :00 (three) Medical times Branch daily as needed for Cough. losartan 50 2020- No 50mg Take 1 Uni vers mg tablet 12-23 tablet by ity of 00:00: 00:00 mouth 2 [place] 00 :00 (two) Medical times Branch daily. losartan 50 2020-0 2020- No 50mg Take 1 Uni vers mg tablet 12-2330 tablet by ity of 00:00: 00:00 mouth 2 [place] 00 :00 (two) Medical times Branch daily. losartan 50 2020- No 50mg Take 1 Uni vers mg tablet 12-23 tablet by ity of 00:00: 00:00 mouth 2 [place] 00 :00 (two) Medical times Branch daily. topiramate 2020- No 25mg Take 1 Univ ers 25 mg 11-22-16 tablet by ity of tablet 00:00: 00:00 mouth 2 [place] 00 :00 (two) Medical times Branch daily. OXcarbazepi 2020- No Unive rs ne 150 mg 11-2130 ity of tablet 00:00: 00:00 [place] 00 :00 Medical Branch OXcarbazepi 2020- No Unive rs ne 150 mg 11-2130 ity of tablet 00:00: 00:00 [place] 00 :00 Medical Branch OXcarbazepi 2020- No Unive rs ne 150 mg 11-2130 ity of tablet 00:00: 00:00 [place] 00 :00 Medical Branch OXcarbazepi 2020- No Unive rs ne 150 mg 11-21 ity of tablet 00:00: 00:00 [place] 00 :00 Medical Branch FLUoxetine 2020- No Univer s 40 mg 11-21 ity of capsule 00:00: 00:00 [place] 00 :00 Medical Branch traZODone 2020- No [facility] 100 mg 11-2116 ity of tablet 00:00: 00:00 [place] 00 :00 Medical Branch dicyclomine 2020- No [id number] 20mg Take 1 [facility] 20 mg 6-10 -16 tablet by ity of tablet 00:00: 00:00 mouth 4 [place] 00 :00 (four) Medical times Branch daily. proMETHazin 2020- No [id number] 25mg Take 1 [facility] e 25 mg 6-10 -16 tablet by ity of tablet 00:00: 00:00 mouth [place] 00 :00 every 6 Medical (six) Branch hours as needed for Nausea and Vomiting (N/V). acetaminoph 2020- No TAKE 2 Uni vers en-codeine 6-05 08-16 TABLETS BY it y of 300-30 mg 00:00: 00:00 MOUTH [place] tablet 00 :00 EVERY 6 Medical HOURS Branch NEEDED FOR PAIN oxybutynin 2020- No [id number] 10mg Take 1 [facility] (DITROPAN 5-30 -16 tablet by ity of XL) 10 mg 00:00: 00:00 mouth [place] 24 hr 00 :00 daily. Medical tablet Branch ondansetron 2020-0 2020- No [id number] 4mg Take 1 [facility] (ZOFRAN 5-30 08-16 tablet by ity of ODT) 4 mg 00:00: 00:00 mouth [place] disintegrat 00 :00 every 8 Medic al ing tablet (eight) Branch hours as needed for Nausea and Vomiting (N/V). oxybutynin 2020-0 2020- No [id number] 10mg Take 1 [facility] (DITROPAN 5-30 08-16 tablet by ity of XL) 10 mg 00:00: 00:00 mouth [place] 24 hr 00 :00 daily. Medical tablet Branch ondansetron 2020- No [id number] 4mg Take 1 [facility] (ZOFRAN 5-30 08-16 tablet by ity of ODT) 4 mg 00:00: 00:00 mouth [place] disintegrat 00 :00 every 8 Medic al ing tablet (eight) Branch hours as needed for Nausea and Vomiting (N/V). oxybutynin 2020-2020- No [id number] 10mg Take 1 [facility] (DITROPAN 5-30 08-16 tablet by ity of XL) 10 mg 00:00: 00:00 mouth [place] 24 hr 00 :00 daily. Medical tablet Branch ondansetron 2020- No [id number] 4mg Take 1 [facility] (ZOFRAN 5-30 08-16 tablet by ity of ODT) 4 mg 00:00: 00:00 mouth [place] disintegrat 00 :00 every 8 Medic al ing tablet (eight) Branch hours as needed for Nausea and Vomiting (N/V). oxybutynin 2020-0 2020- No [id number] 10mg Take 1 [facility] (DITROPAN 5-30 08-16 tablet by ity of XL) 10 mg 00:00: 00:00 mouth [place] 24 hr 00 :00 daily. Medical tablet Branch ondansetron 2020-0 2020- No [id number] 4mg Take 1 [facility] (ZOFRAN 5-30 08-16 tablet by ity of ODT) 4 mg 00:00: 00:00 mouth [place] disintegrat 00 :00 every 8 Medic al ing tablet (eight) Branch hours as needed for Nausea and Vomiting (N/V). ciprofloxac 2020- No [id number] 500mg Take 1 [facility] in HCl 500 -30 -13 tablet by ity of mg tablet 00:00: 00:00 mouth 2 [place] 00 :00 (two) Medical times Branch daily. ciprofloxac 2020- No [id number] 500mg Take 1 [facility] in HCl 500 -30 -13 tablet by ity of mg tablet 00:00: 00:00 mouth 2 [place] 00 :00 (two) Medical times Branch daily. ciprofloxac 2020- No [id number] 500mg Take 1 [facility] in HCl 500 5-30 -13 tablet by ity of mg tablet 00:00: 00:00 mouth 2 [place] 00 :00 (two) Medical times Branch daily. predniSONE 2020- No [id number] 20mg Take 1 [facility] 20 mg 5-25 -13 tablet by ity of tablet 00:00: 00:00 mouth [place] 00 :00 daily. Medical Days 1-2: Branch 3 pills (60 mg). Days 3-4: 2 pills (40 mg). Days 5-6: 1 pill (20 mg). Days 7-8: 1/2 pill (10 mg). Then stop predniSONE 2020- No [id number] 20mg Take 1 [facility] 20 mg 5-25 -13 tablet by ity of tablet 00:00: 00:00 mouth [place] 00 :00 daily. Medical Days 1-2: Branch 3 pills (60 mg). Days 3-4: 2 pills (40 mg). Days 5-6: 1 pill (20 mg). Days 7-8: 1/2 pill (10 mg). Then stop predniSONE 2020- No [id number] 20mg Take 1 [facility] 20 mg 5-25 -13 tablet by ity of tablet 00:00: 00:00 mouth [place] 00 :00 daily. Medical Days 1-2: Branch 3 pills (60 mg). Days 3-4: 2 pills (40 mg). Days 5-6: 1 pill (20 mg). Days 7-8: 1/2 pill (10 mg). Then stop predniSONE 2020- No [id number] 20mg Take 1 [facility] 20 mg 5-25 07-13 tablet by ity of tablet 00:00: 00:00 mouth [place] 00 :00 daily. Medical Days 1-2: Branch 3 pills (60 mg). Days 3-4: 2 pills (40 mg). Days 5-6: 1 pill (20 mg). Days 7-8: 1/2 pill (10 mg). Then stop predniSONE 2020- No [id number] 20mg Take 1 [facility] 20 mg 5-25 07-13 tablet by ity of tablet 00:00: 00:00 mouth [place] 00 :00 daily. Medical Days 1-2: Branch 3 pills (60 mg). Days 3-4: 2 pills (40 mg). Days 5-6: 1 pill (20 mg). Days 7-8: 1/2 pill (10 mg). Then stop predniSONE 2020-2020- No [id number] 20mg Take 1 [facility] 20 mg 5-25 07-13 tablet by ity of tablet 00:00: 00:00 mouth [place] 00 :00 daily. Medical Days 1-2: Branch 3 pills (60 mg). Days 3-4: 2 pills (40 mg). Days 5-6: 1 pill (20 mg). Days 7-8: 1/2 pill (10 mg). Then stop predniSONE 2020- No [id number] 20mg Take 1 [facility] 20 mg 5-25 07-13 tablet by ity of tablet 00:00: 00:00 mouth [place] 00 :00 daily. Medical Days 1-2: Branch 3 pills (60 mg). Days 3-4: 2 pills (40 mg). Days 5-6: 1 pill (20 mg). Days 7-8: 1/2 pill (10 mg). Then stop predniSONE 2020- No [id number] 20mg Take 1 [facility] 20 mg 5-25 07-13 tablet by ity of tablet 00:00: 00:00 mouth [place] 00 :00 daily. Medical Days 1-2: Branch 3 pills (60 mg). Days 3-4: 2 pills (40 mg). Days 5-6: 1 pill (20 mg). Days 7-8: 1/2 pill (10 mg). Then stop predniSONE 2020-2020- No [id number] 20mg Take 1 [facility] 20 mg 5-25 -13 tablet by ity of tablet 00:00: 00:00 mouth [place] 00 :00 daily. Medical Days 1-2: Branch 3 pills (60 mg). Days 3-4: 2 pills (40 mg). Days 5-6: 1 pill (20 mg). Days 7-8: 1/2 pill (10 mg). Then stop predniSONE 2020- No [id number] 20mg Take 1 [facility] 20 mg 5-25 -13 tablet by ity of tablet 00:00: 00:00 mouth [place] 00 :00 daily. Medical Days 1-2: Branch 3 pills (60 mg). Days 3-4: 2 pills (40 mg). Days 5-6: 1 pill (20 mg). Days 7-8: 1/2 pill (10 mg). Then stop mupirocin 2 2020- No [id number] Apply to Univers % ointment 5-20 - both ity of 00:00: 00:00 nostrils [place] 00 :00 at [facility] mupirocin 2 2020- No [id number] Apply to Univers % ointment 5-20 - both ity of 00:00: 00:00 nostrils [place] 00 :00 at [facility] mupirocin 2 2020- No [id number] Apply to Univers % ointment 5-20 - both ity of 00:00: 00:00 nostrils [place] 00 :00 at [facility] mupirocin 2 2020- No [id number] Apply to Univers % ointment 5-20 - both ity of 00:00: 00:00 nostrils [place] 00 :00 at [facility] mupirocin 2 2020- No [id number] Apply to Univers % ointment 5-20 - both ity of 00:00: 00:00 nostrils [place] 00 :00 at [facility] mupirocin 2 2020- No [id number] Apply to Univers % ointment 5-20 - both ity of 00:00: 00:00 nostrils [place] 00 :00 at bedtime Medical Branch mupirocin 2 2020- No [id number] Apply to Univers % ointment 5-20 08-16 both ity of 00:00: 00:00 nostrils [place] 00 :00 at bedtime Medical Branch mupirocin 2 2020- No [id number] Apply to Univers % ointment 5-20 08-16 both ity of 00:00: 00:00 nostrils [place] 00 :00 at bedtime Medical Branch mupirocin 2 2020- No [id number] Apply to Univers % ointment 5-20 08-16 both ity of 00:00: 00:00 nostrils [place] 00 :00 at bedtime Medical Branch mupirocin 2 2020- No [id number] Apply to Univers % ointment 5-20 -16 both ity of 00:00: 00:00 nostrils [place] 00 :00 at bedtime Medical Branch mupirocin 2 2020- No [id number] Apply to Univers % ointment 5-20 -16 both ity of 00:00: 00:00 nostrils [place] 00 :00 at bedtime Medical Branch naproxen 2020- No [id number] 550mg Take 1 U nivers sodium 09-28-16 tablet by ity of (ANAPROX 00:00: 00:00 mouth 2 [place] DS) 550 mg 00 :00 (two) Medical tablet times Branch daily with meals. naproxen 2020- No [id number] 550mg Take 1 U nivers sodium 09-28-16 tablet by ity of (ANAPROX 00:00: 00:00 mouth 2 [place] DS) 550 mg 00 :00 (two) Medical tablet times Branch daily with meals. naproxen 2020- No [id number] 550mg Take 1 U nivers sodium 09-28-16 tablet by ity of (ANAPROX 00:00: 00:00 mouth 2 [place] DS) 550 mg 00 :00 (two) Medical tablet times Branch daily with meals. naproxen 2020- No [id number] 550mg Take 1 U nivers sodium 09-28-16 tablet by ity of (ANAPROX 00:00: 00:00 mouth 2 [place] DS) 550 mg 00 :00 (two) Medical tablet times Branch daily with meals. naproxen No [id number] 550mg Take 1 U nivers sodium 5-19 08-16 tablet by ity of (ANAPROX 00:00: 00:00 mouth 2 [place] DS) 550 mg 00 :00 (two) Medical tablet times Branch daily with meals. naproxen 2020- No [id number] 550mg Take 1 U nivers sodium 5-19 08-16 tablet by ity of (ANAPROX 00:00: 00:00 mouth 2 [place] DS) 550 mg 00 :00 (two) Medical tablet times Branch daily with meals. naproxen 2020- No [id number] 550mg Take 1 U nivers sodium 5-19 08-16 tablet by ity of (ANAPROX 00:00: 00:00 mouth 2 [place] DS) 550 mg 00 :00 (two) Medical tablet times Branch daily with meals. naproxen No [id number] 550mg Take 1 U nivers sodium 5-19 08-16 tablet by ity of (ANAPROX 00:00: 00:00 mouth 2 [place] DS) 550 mg 00 :00 (two) Medical tablet times Branch daily with meals. naproxen 2020- No [id number] 550mg Take 1 U nivers sodium 5-19 08-16 tablet by ity of (ANAPROX 00:00: 00:00 mouth 2 [place] DS) 550 mg 00 :00 (two) Medical tablet times Branch daily with meals. naproxen 2020- No [id number] 550mg Take 1 U nivers sodium 5-19 08-16 tablet by ity of (ANAPROX 00:00: 00:00 mouth 2 [place] DS) 550 mg 00 :00 (two) Medical tablet times Branch daily with meals. naproxen 2020- No [id number] 550mg Take 1 U nivers sodium 5-19 08-16 tablet by ity of (ANAPROX 00:00: 00:00 mouth 2 [place] DS) 550 mg 00 :00 (two) Medical tablet times Branch daily with meals. losartan 25 2020- No 25mg Take 1 Uni vers mg tablet 5-07 08-12 tablet by ity of 00:00: 00:00 mouth 2 [place] 00 :00 (two) Medical times Branch daily. nadoloL 2020- No [id number] Please Univers mg tablet 09-16 take ity of 00:00: 00:00 Nadalol 40 [place] 00 :00 mg QA Medical Branch losartan 25 2020- No 25mg Take 1 Uni vers mg tablet 09-16 tablet by ity of 00:00: 00:00 mouth 2 [place] 00 :00 (two) Medical times Branch daily. nadoloL 2020- No [id number] Please Univers mg tablet 09-16 take ity of 00:00: 00:00 Nadalol 40 [place] 00 :00 mg QA Medical Branch losartan 25 2020- No 25mg Take 1 Uni vers mg tablet 09-16 tablet by ity of 00:00: 00:00 mouth 2 [place] 00 :00 (two) Medical times Branch daily. nadoloL 2020- No [id number] Please Univers mg tablet 09-16 take ity of 00:00: 00:00 Nadalol 40 [place] 00 :00 mg QA Medical Branch losartan 25 2020- No 25mg Take 1 Uni vers mg tablet 09-16 tablet by ity of 00:00: 00:00 mouth 2 [place] 00 :00 (two) Medical times Branch daily. nadoloL 2020- No [id number] Please Univers mg tablet 09-16 take ity of 00:00: 00:00 Nadalol 40 [place] 00 :00 mg QA Medical Branch losartan 25 2020- No 25mg Take 1 Uni vers mg tablet 09-16 tablet by ity of 00:00: 00:00 mouth 2 [place] 00 :00 (two) Medical times Branch daily. nadoloL 2020- No [id number] Please Univers mg tablet 09-16 take ity of 00:00: 00:00 Nadalol 40 [place] 00 :00 mg QA Medical Branch losartan 25 2020- No 25mg Take 1 Uni vers mg tablet 09-16 tablet by ity of 00:00: 00:00 mouth 2 [place] 00 :00 (two) Medical times Branch daily. nadoloL 2020- No [id number] Please Univers mg tablet 09-16 take ity of 00:00: 00:00 Nadalol 40 [place] 00 :00 mg QA Medical Branch losartan 25 2020- No 25mg Take 1 Uni vers mg tablet 09-16 tablet by ity of 00:00: 00:00 mouth 2 [place] 00 :00 (two) Medical times Branch daily. nadoloL 2020- No [id number] Please Univers mg tablet 09-16 take ity of 00:00: 00:00 Nadalol 40 [place] 00 :00 mg QA Medical Branch losartan 25 2020- No 25mg Take 1 Uni vers mg tablet 09-16 tablet by ity of 00:00: 00:00 mouth 2 [place] 00 :00 (two) Medical times Branch daily. nadoloL 2020- No [id number] Please Univers mg tablet 09-16 take ity of 00:00: 00:00 Nadalol 40 [place] 00 :00 mg QA Medical Branch losartan 25 2020- No 25mg Take 1 Uni vers mg tablet 09-16 tablet by ity of 00:00: 00:00 mouth 2 [place] 00 :00 (two) Medical times Branch daily. nadoloL 2020- No [id number] Please Univers mg tablet 09-16 take ity of 00:00: 00:00 Nadalol 40 [place] 00 :00 mg QA Medical Branch losartan 25 2020- No 25mg Take 1 Uni vers mg tablet 09-16 tablet by ity of 00:00: 00:00 mouth 2 [place] 00 :00 (two) Medical times Branch daily. nadoloL 2020- No [id number] Please Univers mg tablet 09-16 take ity of 00:00: 00:00 Nadalol 40 [place] 00 :00 mg QA Medical Branch losartan 25 2020- No 25mg Take 1 Uni vers mg tablet 09-16 tablet by ity of 00:00: 00:00 mouth 2 [place] 00 :00 (two) Medical times Branch daily. nadoloL 20 2020-2020- No [id number] Please Univers mg tablet 09-16 take ity of 00:00: 00:00 Nadalol 40 [place] 00 :00 mg QAM Medical Branch LOESTRIN FE 2020- No [id number] 1{tbl} Take 1 Univers (LOESTRIN 4-27 -30 tablet by ity of FE 06/01) 1 00:00: 00:00 mouth [place] mg-20 mcg 00 :00 daily. Medical (21)/75 mg Branch (7) tablet LOESTRIN FE 2020- No [id number] 1{tbl} Take 1 Univers (LOESTRIN 4-27 -30 tablet by ity of FE 06/01) 1 00:00: 00:00 mouth [place] mg-20 mcg 00 :00 daily. Medical (21)/75 mg Branch (7) tablet LOESTRIN FE 2020- No [id number] 1{tbl} Take 1 Univers (LOESTRIN 4-27 -30 tablet by ity of FE 06/01) 1 00:00: 00:00 mouth [place] mg-20 mcg 00 :00 daily. Medical (21)/75 mg Branch (7) tablet LOESTRIN FE 2020- No [id number] 1{tbl} Take 1 Univers (LOESTRIN 4-27 -30 tablet by ity of FE 06/01) 1 00:00: 00:00 mouth [place] mg-20 mcg 00 :00 daily. Medical (21)/75 mg Branch (7) tablet LOESTRIN FE 2020- No [id number] 1{tbl} Take 1 [facility] (LOESTRIN 4-27 -30 tablet by ity of FE 06/01) 1 00:00: 00:00 mouth [place] mg-20 mcg 00 :00 daily. Medical (21)/75 mg Branch (7) tablet LOESTRIN FE 2020- No [id number] 1{tbl} Take 1 Univers (LOESTRIN 4-27 -30 tablet by ity of FE 06/01) 1 00:00: 00:00 mouth [place] mg-20 mcg 00 :00 daily. Medical (21)/75 mg Branch (7) tablet LOESTRIN FE 2021-0 2020- No [id number] 1{tbl} Take 1 Univers (LOESTRIN 4-27 -30 tablet by ity of FE 06/01) 1 00:00: 00:00 mouth [place] mg-20 mcg 00 :00 daily. Medical (21)/75 mg Branch (7) tablet LOESTRIN FE 202-0 2020- No [id number] 1{tbl} Take 1 Univers (LOESTRIN 4-27 -30 tablet by ity of FE 06/01) 1 00:00: 00:00 mouth [place] mg-20 mcg 00 :00 daily. Medical (21)/75 mg Branch (7) tablet LOESTRIN FE 2020-0 2020- No [id number] 1{tbl} Take 1 Univers (LOESTRIN 4-27 -30 tablet by ity of FE 06/01) 1 00:00: 00:00 mouth [place] mg-20 mcg 00 :00 daily. Medical (21)/75 mg Branch (7) tablet LOESTRIN FE 2020-0 2020- No [id number] 1{tbl} Take 1 Univers (LOESTRIN 4-27 -30 tablet by ity of FE 06/01) 1 00:00: 00:00 mouth [place] mg-20 mcg 00 :00 daily. Medical (21)/75 mg Branch (7) tablet LOESTRIN FE 2020-0 2020- No [id number] 1{tbl} Take 1 Univers (LOESTRIN 4-27 -30 tablet by ity of FE 06/01) 1 00:00: 00:00 mouth [place] mg-20 mcg 00 :00 daily. Medical (21)/75 mg Branch (7) tablet LOESTRIN FE 2020-0 2020- No [id number] 1{tbl} Take 1 Univers (LOESTRIN 4-27 -30 tablet by ity of FE 06/01) 1 00:00: 00:00 mouth [place] mg-20 mcg 00 :00 daily. Medical (21)/75 mg Branch (7) tablet LOESTRIN FE 2021-0 2020- No [id number] 1{tbl} Take 1 Univers (LOESTRIN 4-27 -30 tablet by ity of FE 06/01) 1 00:00: 00:00 mouth [place] mg-20 mcg 00 :00 daily. Medical (21)/75 mg Branch (7) tablet LOESTRIN FE 2020- No [id number] 1{tbl} Take 1 Univers (LOESTRIN 4-27 09-30 tablet by ity of FE 06/01) 1 00:00: 00:00 mouth [place] mg-20 mcg 00 :00 daily. Medical (21)/75 mg Branch (7) tablet FLUoxetine 2020- No [id number] 20mg Take 1 Univers 20 mg 4-27 07-13 capsule by ity of capsule 00:00: 00:00 mouth [place] 00 :00 daily. [facility] Branch traZODone 2020- No [id number] 50mg Take 1 Univers 50 mg 4-27 07-13 tablet by ity of tablet 00:00: 00:00 mouth at [place] 00 :00 bedtime. [facility] Branch FLUoxetine 2020- No [id number] 20mg Take 1 Univers 20 mg 4-27 07-13 capsule by ity of capsule 00:00: 00:00 mouth [place] 00 :00 daily. [facility] Branch traZODone 2020- No [id number] 50mg Take 1 Univers 50 mg 4-27 07-13 tablet by ity of tablet 00:00: 00:00 mouth at [place] 00 :00 bedtime. [facility] Branch FLUoxetine 2020- No [id number] 20mg Take 1 Univers 20 mg 4-27 07-13 capsule by ity of capsule 00:00: 00:00 mouth [place] 00 :00 daily. [facility] Branch traZODone 2020- No [id number] 50mg Take 1 Univers 50 mg 4-27 07-13 tablet by ity of tablet 00:00: 00:00 mouth at [place] 00 :00 bedtime. [facility] Branch FLUoxetine 2020- No [id number] 20mg Take 1 Univers 20 mg 4-27 07-13 capsule by ity of capsule 00:00: 00:00 mouth [place] 00 :00 daily. [facility] Branch traZODone 2020- No [id number] 50mg Take 1 Univers 50 mg 4-27 07-13 tablet by ity of tablet 00:00: 00:00 mouth at [place] 00 :00 bedtime. Medical Branch FLUoxetine 2020- No [id number] 20mg Take 1 Univers 20 mg 4-27 07-13 capsule by ity of capsule 00:00: 00:00 mouth [place] 00 :00 daily. [facility] Branch traZODone 2020- No [id number] 50mg Take 1 Univers 50 mg 4-27 07-13 tablet by ity of tablet 00:00: 00:00 mouth at [place] 00 :00 bedtime. [facility] FLUoxetine 2020- No [id number] 20mg Take 1 Univers 20 mg 4-27 07-13 capsule by ity of capsule 00:00: 00:00 mouth [place] 00 :00 daily. [facility] traZODone 2020- No [id number] 50mg Take 1 Univers 50 mg 4-27 07-13 tablet by ity of tablet 00:00: 00:00 mouth at [place] 00 :00 bedtime. [facility] FLUoxetine 2020- No [id number] 20mg Take 1 Univers 20 mg 4-27 07-13 capsule by ity of capsule 00:00: 00:00 mouth [place] 00 :00 daily. [facility] traZODone 2020- No [id number] 50mg Take 1 Univers 50 mg 4-27 07-13 tablet by ity of tablet 00:00: 00:00 mouth at [place] 00 :00 bedtime. [facility] FLUoxetine 2020- No [id number] 20mg Take 1 Univers 20 mg 4-27 07-13 capsule by ity of capsule 00:00: 00:00 mouth [place] 00 :00 daily. [facility] traZODone 2020- No [id number] 50mg Take 1 Univers 50 mg 4-27 07-13 tablet by ity of tablet 00:00: 00:00 mouth at [place] 00 :00 bedtime. [facility] FLUoxetine 2020- No [id number] 20mg Take 1 Univers 20 mg 4-27 07-13 capsule by ity of capsule 00:00: 00:00 mouth [place] 00 :00 daily. [facility] traZODone 2020- No [id number] 50mg Take 1 Univers 50 mg 4-27 07-13 tablet by ity of tablet 00:00: 00:00 mouth at [place] 00 :00 bedtime. [facility] FLUoxetine 2020- No [id number] 20mg Take 1 Univers 20 mg 09-06 capsule by ity of capsule 00:00: 00:00 mouth [place] 00 :00 daily. Medical Branch traZODone 2020- No [id number] 50mg Take 1 [facility] 50 mg 09-06 tablet by ity of tablet 00:00: 00:00 mouth at [place] 00 :00 bedtime. Medical Branch nadoloL 20 2020- No [id number] Please Univers mg tablet 08-31 take ity of 00:00: 00:00 Nadalol 40 [place] 00 :00 mg QAM and Medical 20 mg QPM Branch methocarbam 2020- No [id number] 500mg Take 1 Univers oL 08-18 tablet [...] TAKE 1 Unive rs 800 mg 4-08 17- TABLET BY ity of tablet 00:00: 00:00 MOUTH [place] 00 :00 EVERY 12 Medical HOURS Branch NEEDED FOR PAIN ibuprofen 2020- No TAKE 1 Unive rs 800 mg 4-08 17- TABLET BY ity of tablet 00:00: [...] Branch NEEDED FOR PAIN ondansetron 2020- No [id number] 4mg Take 1 Univers (ZOFRAN 08-01 [id number] tablet by ity of ODT) 4 mg 00:00: 00:00 mouth [place] disintegrat 00 :00 every 8 Medic al ing tablet (eight) Branch hours as needed for Nausea and Vomiting (N/V). ketorolac No [id number] 10mg Take 1 Univers 10 mg 08-01 [id number] tablet by ity of tablet 00:00: 00:00 mouth [place] 00 :00 every 6 Medical (six) Branch hours as needed for Pain (scale 4-6). ciprofloxac 2020- No [id number] 250mg Take 1 [facility] in HCl 250 08-01 [id number] tablet by i ty of mg tablet 00:00: 00:00 mouth 2 [place] 00 :00 (two) Medical times Branch daily. lidocaine 5 2020- No [id number] 1{patch Apply 1 Univers % (700 3-12 05-21 } Patch to ity of mg/patch) 00:00: 00:00 area(s) [place] patch 00 :00 every 24 Medical (twenty-fo Branch ur) hours as needed for Localized pain. topiramate 2020-0 2021- No 25mg Take 1 Univ ers 25 mg -09 16-13 tablet by ity of tablet 00:00: 00:00 mouth 2 [place] 00 :00 (two) Medical times Branch daily. topiramate 2020-0 2021- No 25mg Take 1 Univ ers 25 mg 1-05 -13 tablet by ity of tablet 00:00: 00:00 mouth 2 [place] 00 :00 (two) Medical times Branch daily. topiramate 2020-0 2021- No 25mg Take 1 Univ ers 25 mg -09 16-13 tablet by ity of tablet 00:00: 00:00 mouth 2 [place] 00 :00 (two) Medical times Branch daily. topiramate 2020-0 2021- No 25mg Take 1 Univ ers 25 mg -09 16-13 tablet by ity of tablet 00:00: 00:00 mouth 2 [place] 00 :00 (two) Medical times Branch daily. topiramate 1-0 2021- No 25mg Take 1 Univ ers 25 mg -09 16-13 tablet by ity of tablet 00:00: 00:00 mouth 2 [place] 00 :00 (two) Medical times Branch daily. topiramate 1-0 2021- No 25mg Take 1 Univ ers 25 mg -09 16-13 tablet by ity of tablet 00:00: 00:00 mouth 2 [place] 00 :00 (two) Medical times Branch daily. topiramate 1-0 2021- No 25mg Take 1 Univ ers 25 mg 1-05 07-13 tablet by ity of tablet 00:00: 00:00 mouth 2 [place] 00 :00 (two) Medical times Branch daily. topiramate 1-0 2021- No 25mg Take 1 Univ ers 25 mg 1-05 -13 tablet by ity of tablet 00:00: [...] Medical times Branch daily. metoprolol 2019-05 No [id number] 12.5mg Take 0.5 Univers succinate 07-03 tablets by ity of XL 25 mg 24 00:00: 00:00 mouth 2 [place] hr tablet 00 :00 (two) Medical times Branch daily for 90 days. metoprolol 2019-05 No [id number] 12.5mg Take 0.5 Univers succinate 07-03 tablets by ity of XL 25 mg 24 00:00: 00:00 mouth 2 [place] hr tablet 00 :00 (two) Medical times Branch daily for 90 days. metoprolol 2019-05 No [id number] 12.5mg Take 0.5 Univers succinate 07-03 tablets by ity of XL 25 mg 24 00:00: 00:00 mouth 2 [place] hr tablet 00 :00 (two) Medical times Branch daily for 90 days. FLUoxetine 2019-05 No 20mg Take 20 mg Univers 20 mg 06-14 by mouth ity of capsule 00:00: 00:00 daily. [place] 00 :00 Medical Branch FLUoxetine 2019-05 No 20mg Take 20 mg Univers 20 mg 06-14 by mouth ity of capsule 00:00: 00:00 daily. [place] 00 :00 Medical Branch norgestimat 2019- No [id number] 1{tbl} Take 1 Univers e-ethinyl 11-17 tablet by ity of estradiol 00:00: 00:00 mouth [place] 0.25-35 00 :00 daily. Medical mg-mcg per Branch tablet buPROPion 2019- No [id number] 150mg Take 1 [facility] XL 08-12- tablet by ity of (WELLBUTRIN 00:00: 00:00 mouth [place] XL) 150 mg 00 :00 daily. Medical 24 hr Branch tablet acetaminoph 2019- No [id number] 650mg Take 2 Univers en 325 mg 07-22- tablets by ity of tablet 00:00: 00:00 mouth [place] 00 :00 every 6 Medical (six) Branch hours as needed for Pain (scale 1-3) or Pain (scale 4-6). 2019- No [id number] 1{tbl} Take 1 [facility] vitamin 07-22- tablet by ity of w/FA tablet 00:00: 00:00 mouth [place] 00 :00 daily. Medical Branch docusate 2019- No [id number] 240mg Take 1 U nivers calcium 240 07-22- capsule by i ty of mg capsule 00:00: 00:00 mouth once [place] 00 :00 daily as Medical needed for Branch Constipati on. ferrous 2019- No [id number] 325mg Take 1 Un sushant sulfate 325 07-22 tablet by it y of mg (65 mg 00:00: 00:00 mouth 2 [place] iron) 00 :00 (two) Medical tablet times Branch daily. ibuprofen 2019- No [id number] 600mg Take 1 [facility] 600 mg 07-22-25 tablet by ity of tablet 00:00: 00:00 mouth [place] 00 :00 every 6 Medical (six) Branch hours as needed (Pain). Take with food or milk. ALBUTEROL 2019- No [id number] INHALE 2 Univers 90 1-14 12-20 103 PUFFS BY ity of mcg/actuati 00:00: 00:00 MOUTH [place] on inhaler 00 :00 EVERY 6 Medica l HOURS Branch NEEDED FOR WHEEZING FOR SHORTNESS OF BREATH buPROPion 2020- No [id number] 150mg Take 1 Univers SR 05-21 tablet by ity of (WELLBUTRIN 00:00: 00:00 mouth 2 [place] SR) 150 mg 00 :00 (two) Medical SR tablet times Branch daily. busPIRone 2020- No [id number] 10mg Take 1 Univers 10 mg 05-21 [...] 00:00:00 [place] Medical IM 6+ MO Branch (FLUZONE/FLULAVAL/F LUARIX) Influenza Virus 2022-02-21 Completed Universit y of Vaccine Quad .5 mL 00:00:00 [facility] IM 6+ MO Branch (FLUZONE/FLULAVAL/F LUARIX) Influenza Virus 2022-02-21 Completed Universit y of Vaccine Quad .5 mL 00:00:00 [facility] [place] [facility] 6+ MO Branch (FLUZONE/FLULAVAL/F LUARIX) Influenza Virus 2021-06-11 Completed Universit y of Vaccine 00:00:00 [facility] Influenza Virus 2021-06-11 Completed Universit y of Vaccine 00:00:00 [facility] Influenza Virus 2021-06-11 Completed Universit y of Vaccine 00:00:00 [facility] Influenza Virus 2021-06-11 Completed Universit y of Vaccine 00:00:00 [facility] Influenza Virus 2021-06-11 Completed Universit y of Vaccine 00:00:00 [facility] Influenza Virus 2021-06-11 Completed Universit y of Vaccine 00:00:00 [facility] Influenza Virus 2021-06-11 Completed Universit y of Vaccine 00:00:00 [facility] Influenza Virus 2021-06-11 Completed Universit y of Vaccine 00:00:00 [facility] Influenza Virus 2021-06-11 Completed Universit y of Vaccine 00:00:00 [facility] Influenza Virus 2021-06-11 Completed Universit y of Vaccine 00:00:00 [facility] Influenza Virus 2021-06-11 Completed Universit y of Vaccine 00:00:00 [facility] Influenza Virus 2021-06-11 Completed Universit y of Vaccine 00:00:00 [facility] Influenza Virus 2021-06-11 Completed Universit y of Vaccine 00:00:00 [facility] Influenza Virus 2021-06-11 Completed Universit y of Vaccine 00:00:00 [facility] Influenza Virus 2021-06-11 Completed Universit y of Vaccine 00:00:00 [facility] Influenza Virus 2021-06-11 Completed Universit y of Vaccine 00:00:00 [facility] Influenza Virus 2021-06-11 Completed Universit y of Vaccine 00:00:00 [facility] Branch Influenza Virus 2021-06-11 Completed Universit y of Vaccine 00:00:00 [facility] Branch Influenza Virus 2021-06-11 Completed Universit y of Vaccine 00:00:00 [facility] Branch Influenza Virus 2021-06-11 Completed Universit y of Vaccine 00:00:00 [facility] Branch Influenza Virus 2021-06-11 Completed Universit y of Vaccine 00:00:00 [facility] Influenza Virus 2021-06-11 Completed Universit y of Vaccine 00:00:00 [facility] Influenza Virus 2021-06-11 Completed Universit y of Vaccine 00:00:00 [facility] Branch Influenza Virus 2021-06-11 Completed Universit y of Vaccine 00:00:00 [facility] Influenza Virus 2021-06-11 Completed Universit y of Vaccine 00:00:00 [facility] Influenza Virus 2021-06-11 Completed Universit y of Vaccine 00:00:00 [facility] Influenza Virus 2021-06-11 Completed Universit y of Vaccine 00:00:00 [facility] Influenza Virus 2021-06-11 Completed Universit y of Vaccine 00:00:00 [facility] Influenza Virus 2021-06-11 Completed Universit y of Vaccine 00:00:00 [facility] Branch Influenza Virus 2021-06-11 Completed Universit y of Vaccine 00:00:00 [facility] Branch Influenza Virus 2021-06-11 Completed Universit y of Vaccine 00:00:00 [facility] Branch Influenza Virus 2021-06-11 Completed Universit y of Vaccine 00:00:00 [facility] Branch Influenza Virus 2021-06-11 Completed Universit y of Vaccine 00:00:00 [facility] Branch Influenza Virus 2021-06-11 Completed Universit y of Vaccine 00:00:00 [facility] Branch Influenza Virus 2021-06-11 Completed Universit y of Vaccine 00:00:00 [place] [facility] Branch Influenza Virus 2021-06-11 Completed Universit y of Vaccine 00:00:00 [facility] Branch Influenza Virus 2021-06-11 Completed Universit y of Vaccine 00:00:00 [facility] Branch Influenza Virus 2021-06-11 Completed Universit y of Vaccine 00:00:00 [place] [facility] Influenza Virus 2021-06-11 Completed Universit y of Vaccine 00:00:00 [facility] Influenza Virus 2021-06-11 Completed Universit y of Vaccine 00:00:00 [facility] Influenza Virus 2021-06-11 Completed Universit y of Vaccine 00:00:00 [facility] Influenza Virus 2021-06-11 Completed Universit y of Vaccine 00:00:00 [facility] Influenza Virus 2021-06-11 Completed Universit y of Vaccine 00:00:00 [facility] Influenza Virus 2021-06-11 Completed Universit y of Vaccine 00:00:00 [facility] Influenza Virus 2021-06-11 Completed Universit y of Vaccine 00:00:00 [facility] Influenza Virus 2021-06-11 Completed Universit y of Vaccine 00:00:00 [facility] Influenza Virus 2021-06-11 Completed Universit y of Vaccine 00:00:00 [facility] Influenza Virus 2021-06-11 Completed Universit y of Vaccine 00:00:00 [facility] Influenza Virus 2021-06-11 Completed Universit y of Vaccine Quad .5 mL 00:00:00 [facility] [place] [facility] 6+ MO Branch Influenza Virus 2021-06-11 Completed Universit y of Vaccine 00:00:00 [facility] Influenza Virus 2021-06-11 Completed Universit y of Vaccine Quad .5 mL 00:00:00 [facility] [place] [facility] 6+ MO Branch Influenza Virus 2021-06-11 Completed Universit y of Vaccine 00:00:00 [facility] Influenza Virus 2021-06-11 Completed Universit y of Vaccine Quad .5 mL 00:00:00 [facility] [place] [facility] 6+ MO Branch Influenza Virus 2021-06-11 Completed Universit y of Vaccine 00:00:00 [facility] Influenza Virus 2021-06-11 Completed Universit y of Vaccine Quad .5 mL 00:00:00 [facility] [place] [facility] 6+ MO Branch Influenza Virus 2021-06-11 Completed Universit y of Vaccine 00:00:00 [facility] Influenza Virus 2021-06-11 Completed Universit y of Vaccine Quad .5 mL 00:00:00 [facility] [place] [facility] 6+ MO Branch Influenza Virus 2021-06-11 Completed Universit y of Vaccine 00:00:00 [facility] Influenza Virus 2021-06-11 Completed Universit y of Vaccine Quad .5 mL 00:00:00 [facility] [place] [facility] 6+ MO Branch Influenza Virus 2021-06-11 Completed Universit y of Vaccine 00:00:00 [facility] Influenza Virus 2021-06-11 Completed Universit y of Vaccine Quad .5 mL 00:00:00 [facility] [place] [facility] 6+ MO Branch Influenza Virus 2021-06-11 Completed Universit y of Vaccine 00:00:00 [facility] Influenza Virus 2021-06-11 Completed Universit y of Vaccine Quad .5 mL 00:00:00 [facility] [place] [facility] 6+ MO Branch Influenza Virus 2021-06-11 Completed Universit y of Vaccine 00:00:00 [facility] Influenza Virus 2021-06-11 Completed Universit y of Vaccine Quad .5 mL 00:00:00 [facility] [place] [facility] 6+ MO Branch Influenza Virus 2021-06-11 Completed Universit y of Vaccine 00:00:00 [facility] Influenza Virus 2021-06-11 Completed Universit y of Vaccine Quad .5 mL 00:00:00 [facility] [place] [facility] 6+ MO Branch Influenza Virus 2021-06-11 Completed Universit y of Vaccine 00:00:00 [facility] Influenza Virus 2021-06-11 Completed Universit y of Vaccine Quad .5 mL 00:00:00 [facility] [place] [facility] 6+ MO Branch Influenza Virus 2021-06-11 Completed Universit y of Vaccine 00:00:00 [facility] Influenza Virus 2021-06-11 Completed Universit y of Vaccine Quad .5 mL 00:00:00 [facility] [place] [facility] 6+ MO Branch Influenza Virus 2021-06-11 Completed Universit y of Vaccine 00:00:00 [facility] Influenza Virus 2021-06-11 Completed Universit y of Vaccine Quad .5 mL 00:00:00 [facility] [place] [facility] 6+ MO Branch Influenza Virus 2021-06-11 Completed Universit y of Vaccine 00:00:00 [facility] Influenza Virus 2021-06-11 Completed Universit y of Vaccine Quad .5 mL 00:00:00 [facility] [place] [facility] 6+ MO Branch (FLUZONE/FLULAVAL/F LUARIX) Influenza Virus 2021-06-11 Completed Universit y of Vaccine 00:00:00 [facility] Influenza Virus 2021-06-11 Completed Universit y of Vaccine Quad .5 mL 00:00:00 [facility] [place] [facility] 6+ MO Branch (FLUZONE/FLULAVAL/F LUARIX) Influenza Virus 2021-06-11 Completed Universit y of Vaccine 00:00:00 [facility] Influenza Virus 2021-06-11 Completed Universit y of Vaccine Quad .5 mL 00:00:00 [facility] 6+ MO [place] (FLUZONE/FLULAVAL/F LUARIX) Influenza Virus 2020-05-19 Completed Universit [...] Completed [facility] of Vaccine 00:00:00 [facility] Influenza Virus 2020-05-19 Completed Universit y [...] [facility] Influenza Virus 2020-05-19 Completed [facility] of Vaccine 00[facility]00:00 [facility] Influenza Virus 2020-05-19 Completed [facility]it y of Vaccine 00:00:00 [facility] Influenza Virus 2020-05-19 Completed [facility]it y of Vaccine 00:00:00 [facility] Influenza Virus 2020-05-19 Completed [facility]it y of Vaccine 00:00:00 [facility] Influenza Virus 2020-05-19 Completed [facility]it y of Vaccine 00:00:00 [facility] Influenza Virus 2020-05-19 Completed [facility]it y of Vaccine 00:00:00 [facility] Influenza Virus 2020-05-19 Completed [facility] of Vaccine 00:00:00 [facility] Influenza Virus 2020-05-19 Completed [facility]it y of Vaccine 00:00:00 [facility] Influenza Virus 2020-05-19 Completed [facility] of Vaccine 00:00:00 [facility] Influenza Virus 2020-05-19 Completed Universit y [...] Universit y of Vaccine Recomb Quad 00:00:00 [facility], Preserv and ABX Branc h Free [...] [facility] TDAP (ADACEL) 2019-05-21 Completed University of [...] [facility] TDAP (ADACEL) 2019-05-21 Completed University of VACCINE 00:00:00 [facility] TDAP (ADACEL) 2019-05-21 Completed University of VACCINE 00:00:00 [facility] TDAP (ADACEL) 2019-05-21 Completed University of VACCINE 00:00:00 [facility] TDAP (ADACEL) 2019-05-21 Completed University of VACCINE 00:00:00 [facility] TDAP (ADACEL) 2019-05-21 Completed University of VACCINE 00:00:00 [facility] TDAP (ADACEL) 2019-05-21 Completed University of VACCINE 00:00:00 [facility] TDAP (ADACEL) 2019-05-21 Completed University of VACCINE 00:00:00 [facility] TDAP (ADACEL) 2019-05-21 Completed University of VACCINE 00:00:00 [facility] TDAP (ADACEL) 2019-05-21 Completed University of VACCINE 00:00:00 [facility] TDAP (ADACEL) 2019-05-21 Completed University of VACCINE 00:00:00 [facility] TDAP (ADACEL) 2019-05-21 Completed University of VACCINE 00:00:00 [facility] TDAP (ADACEL) 2019-05-21 Completed [facility] of VACCINE 00:00:00 [facility] TDAP (ADACEL) 2019-05-21 Completed University of VACCINE 00:00:00 [facility] TDAP (ADACEL) 2019-05-21 Completed [facility] of VACCINE 00:00:00 [facility] TDAP (ADACEL) 2019-05-21 Completed [facility] of VACCINE 00:00:00 [facility] TDAP (ADACEL) 2019-05-21 Completed University of VACCINE 00:00:00 [facility] TDAP (ADACEL) 2019-05-21 Completed University of VACCINE 00:00:00 [facility] TDAP (ADACEL) 2019-05-21 Completed University of VACCINE 00:00:00 [facility] TDAP (ADACEL) 2019-05-21 Completed University of VACCINE 00:00:00 [facility] TDAP (ADACEL) 2019-05-21 Completed University of VACCINE 00:00:00 [facility] TDAP (ADACEL) 2019-05-21 Completed University of VACCINE 00:00:00 [facility] TDAP (ADACEL) 2019-05-21 Completed University of VACCINE 00:00:00 [facility] TDAP (ADACEL) 2019-05-21 Completed University of VACCINE 00:00:00 [facility] TDAP (ADACEL) 2019-05-21 Completed University of VACCINE 00:00:00 [facility] TDAP (ADACEL) 2019-05-21 Completed University of VACCINE 00:00:00 [facility] TDAP (ADACEL) 2019-05-21 Completed University of VACCINE 00:00:00 [facility] TDAP (ADACEL) 2019-05-21 Completed University of VACCINE 00:00:00 [facility] TDAP (ADACEL) 2019-05-21 Completed University of [...] 00:00:00 [facility] 6+ [place] [facility] (FLUZONE/FLULAVAL/F LUARIX) Influenza Virus 2019-02-06 Completed Universit y of Vaccine Quad .5 mL 00:00:00 [facility] 6+ [place] [facility] (FLUZONE/FLULAVAL/F LUARIX) Influenza Virus 2019-02-06 Completed [facility]it y of Vaccine Quad .5 mL 00:00:00 [facility] 6+ MO Branch (FLUZONE/FLULAVAL/F LUARIX) Influenza Virus Unknown Completed [facility]it y of Vaccine Quad .5 mL [facility] 6+ MO Branch (FLUZONE/FLULAVAL/F LUARIX) TDAP (ADACEL) Unknown Completed University of VACCINE [facility] Influenza Virus Unknown Completed [facility]it y of Vaccine Recomb Quad [facility], Preserv and ABX Branc h Free 18-64 YRS Influenza Virus Unknown Completed [facility]it y of Vaccine [facility] Influenza Virus Unknown Completed [facility] y of Vaccine [facility] Influenza Virus Unknown Completed Universit y of Vaccine Quad , [facility] dical Preserv and ABX Branch Free 6 MO-64 YRS (FLUCELVAX) Influenza Virus Unknown Completed Universit y of Vaccine Quad .5 mL [facility] 6+ MO Branch (FLUZONE/FLULAVAL/F LUARIX) Influenza Virus Unknown Completed [facility]it y of Vaccine Quad .5 mL [facility] 6+ MO Branch (FLUZONE/FLULAVAL/F LUARIX) Influenza Virus Unknown Completed [facility] y of Vaccine Quad .5 mL [facility] 6+ MO Branch (FLUZONE/FLULAVAL/F LUARIX) TDAP (ADACEL) Unknown Completed University of VACCINE [facility] Influenza Virus Unknown Completed [facility] y of Vaccine Recomb Quad [facility] , Preserv and ABX Branc h Free 18-64 YRS Influenza Virus Unknown Completed [facility] y of Vaccine [facility] Influenza Virus Unknown Completed [facility] y of Vaccine [facility] Influenza Virus Unknown Completed [facility]it y of Vaccine Quad , [facility] dical Preserv and ABX Branch Free 6 MO-64 YRS (FLUCELVAX) Influenza Virus Unknown Completed [facility]it y of Vaccine Quad .5 mL [facility] 6+ MO Branch (FLUZONE/FLULAVAL/F LUARIX) Influenza Virus Unknown Completed [facility] y of Vaccine Quad .5 mL [facility] 6+ MO Branch (FLUZONE/FLULAVAL/F LUARIX) Influenza Virus Unknown Completed [facility] y of Vaccine Quad .5 mL [facility] 6+ MO Branch (FLUZONE/FLULAVAL/F LUARIX) TDAP (ADACEL) Unknown Completed [facility] of VACCINE [facility] Influenza Virus Unknown Completed [facility] y of Vaccine Recomb Quad [facility], Preserv and ABX Branc h Free 18-64 YRS Influenza Virus Unknown Completed [facility] Vaccine [facility] [place] Influenza Virus Unknown Completed [facility] Vaccine [facility] [place] Influenza Virus Unknown Completed [facility] y of Vaccine Quad .5 mL [facility] 6+ MO Branch (FLUZONE/FLULAVAL/F LUARIX) Influenza Virus Unknown Completed [facility] y of Vaccine Quad .5 mL [facility] 6+ MO Branch (FLUZONE/FLULAVAL/F LUARIX) TDAP (ADACEL) Unknown Completed [facility] of VACCINE [facility] Influenza Virus Unknown Completed [facility] y of Vaccine Recomb Quad [facility] , Preserv and ABX Branc h Free 18-64 YRS Influenza Virus Unknown Completed [facility]it y of Vaccine [facility] Influenza Virus Unknown Completed [facility] y of Vaccine [facility] Influenza Virus Unknown Completed [facility] y of Vaccine Quad .5 mL [facility] 6+ MO Branch (FLUZONE/FLULAVAL/F LUARIX) Influenza Virus Unknown Completed [facility]it y of Vaccine Quad .5 mL [facility] 6+ MO Branch (FLUZONE/FLULAVAL/F LUARIX) TDAP (ADACEL) Unknown Completed [facility] of VACCINE [facility] Influenza Virus Unknown Completed [facility] y of Vaccine Recomb Quad [facility] , Preserv and ABX Branc h Free 18-64 YRS Influenza Virus Unknown Completed [facility] y of Vaccine [facility] Influenza Virus Unknown Completed [facility] y of Vaccine [facility] Influenza Virus Unknown Completed [facility] y of Vaccine Quad .5 mL [facility] 6+ MO Branch (FLUZONE/FLULAVAL/F LUARIX) Influenza Virus Unknown Completed [facility] y of Vaccine Quad .5 mL [facility] 6+ MO Branch (FLUZONE/FLULAVAL/F LUARIX) TDAP (ADACEL) Unknown Completed [facility] of VACCINE [facility] Influenza Virus Unknown Completed [facility] y of Vaccine Recomb Quad [facility], Preserv and ABX Branc h Free 18-64 YRS Influenza Virus Unknown Completed [facility] y of Vaccine [facility] Influenza Virus Unknown Completed [facility] y of Vaccine [facility] Influenza Virus Unknown Completed [facility] y of Vaccine Quad .5 mL [facility] 6+ MO Branch (FLUZONE/FLULAVAL/F LUARIX) Influenza Virus Unknown Completed [facility] y of Vaccine Quad .5 mL [facility] 6+ MO Branch (FLUZONE/FLULAVAL/F LUARIX) TDAP (ADACEL) Unknown Completed [facility] of VACCINE [facility] Influenza Virus Unknown Completed [facility] y of Vaccine Recomb Quad [facility], Preserv and ABX Branc h Free 18-64 YRS Influenza Virus Unknown Completed [facility] Vaccine [facility] [place] Influenza Virus Unknown Completed [facility] Vaccine [facility] [place] Influenza Virus Unknown Completed [facility] y of Vaccine Quad .5 mL [facility] 6+ MO Branch (FLUZONE/FLULAVAL/F LUARIX) Influenza Virus Unknown Completed [facility] y of Vaccine Quad .5 mL [facility] 6+ MO Branch (FLUZONE/FLULAVAL/F LUARIX) TDAP (ADACEL) Unknown Completed [facility] of VACCINE [facility] Influenza Virus Unknown Completed [facility] y of Vaccine Recomb Quad [facility], Preserv and ABX Branc h Free 18-64 YRS Influenza Virus Unknown Completed [facility] y of Vaccine [facility] Influenza Virus Unknown Completed [facility] y of Vaccine [facility] Influenza Virus Unknown Completed [facility] y of Vaccine Quad .5 mL [facility] 6+ MO Branch (FLUZONE/FLULAVAL/F LUARIX) Influenza Virus Unknown Completed [facility] y of Vaccine Quad .5 mL [facility] 6+ MO Branch (FLUZONE/FLULAVAL/F LUARIX) TDAP (ADACEL) Unknown Completed [facility] of VACCINE [facility] Influenza Virus Unknown Completed [facility] y of Vaccine Recomb Quad [facility], Preserv and ABX Branc h Free 18-64 YRS Influenza Virus Unknown Completed [facility] y of Vaccine [facility] Influenza Virus Unknown Completed [facility] y of Vaccine [facility] Influenza Virus Unknown Completed [facility] y of Vaccine Quad .5 mL [facility] 6+ MO Branch (FLUZONE/FLULAVAL/F LUARIX) Influenza Virus Unknown Completed [facility] y of Vaccine Quad .5 mL [facility] 6+ MO Branch (FLUZONE/FLULAVAL/F LUARIX) TDAP (ADACEL) Unknown Completed [facility] VACCINE [facility] [place] Influenza Virus Unknown Completed [facility] y of Vaccine Recomb Quad [facility], Preserv and ABX Branc h Free 18-64 YRS Influenza Virus Unknown Completed [facility] y of Vaccine [facility] Influenza Virus Unknown Completed [facility] y of Vaccine [facility] Influenza Virus Unknown Completed [facility] of Vaccine Quad .5 mL [facility] 6+ MO Branch (FLUZONE/FLULAVAL/F LUARIX) Influenza Virus Unknown Completed [facility] of Vaccine Quad .5 mL [facility] 6+ MO Branch (FLUZONE/FLULAVAL/F LUARIX) TDAP (ADACEL) Unknown Completed [facility] of VACCINE [facility] Influenza Virus Unknown Completed [facility] y of Vaccine Recomb Quad [facility], Preserv and ABX Branc h Free 18-64 YRS Influenza Virus Unknown Completed [facility] y of Vaccine [facility] Influenza Virus Unknown Completed [facility] y of Vaccine [facility] Influenza Virus Unknown Completed [facility] y of Vaccine Quad .5 mL [facility] 6+ MO Branch (FLUZONE/FLULAVAL/F LUARIX) Influenza Virus Unknown Completed [facility] y of Vaccine Quad .5 mL [facility] 6+ MO Branch (FLUZONE/FLULAVAL/F LUARIX) TDAP (ADACEL) Unknown Completed [facility] of VACCINE [facility] Influenza Virus Unknown Completed [facility] y of Vaccine Recomb Quad [facility], Preserv and ABX Branc h Free 18-64 YRS Influenza Virus Unknown Completed [facility] y of Vaccine [facility] Influenza Virus Unknown Completed [facility] y of Vaccine [facility] Influenza Virus Unknown Completed [facility] y of Vaccine Quad .5 mL [facility] 6+ MO Branch (FLUZONE/FLULAVAL/F LUARIX) Influenza Virus Unknown Completed [facility] y of Vaccine Quad .5 mL [facility] 6+ MO Branch (FLUZONE/FLULAVAL/F LUARIX) TDAP (ADACEL) Unknown Completed [facility] of VACCINE [facility] Influenza Virus Unknown Completed [facility] y of Vaccine Recomb Quad [facility], Preserv and ABX Branc h Free 18-64 YRS Influenza Virus Unknown Completed [facility] y of Vaccine [facility] Influenza Virus Unknown Completed [facility] y of Vaccine [facility] Influenza Virus Unknown Completed [facility] y of Vaccine Quad .5 mL [facility] 6+ MO Branch (FLUZONE/FLULAVAL/F LUARIX) Influenza Virus Unknown Completed [facility] y of Vaccine Quad .5 mL [facility] 6+ MO Branch (FLUZONE/FLULAVAL/F LUARIX) TDAP (ADACEL) Unknown Completed [facility] of VACCINE [facility] Influenza Virus Unknown Completed [facility]it y of Vaccine Recomb Quad [facility], Preserv and ABX Branc h Free 18-64 YRS Influenza Virus Unknown Completed [facility] y of Vaccine [facility] Influenza Virus Unknown Completed [facility] y of Vaccine [facility] Influenza Virus Unknown Completed [facility] y of Vaccine Quad .5 mL [facility] 6+ MO Branch (FLUZONE/FLULAVAL/F LUARIX) Influenza Virus Unknown Completed [facility] y of Vaccine Quad .5 mL [facility] 6+ MO Branch (FLUZONE/FLULAVAL/F LUARIX) TDAP (ADACEL) Unknown Completed [facility] of VACCINE [facility] Influenza Virus Unknown Completed [facility] y of Vaccine Recomb Quad [facility] , Preserv and ABX Branc h Free 18-64 YRS Influenza Virus Unknown Completed [facility] y of Vaccine [facility] Influenza Virus Unknown Completed [facility] y of Vaccine [facility] Influenza Virus Unknown Completed [facility] y of Vaccine Quad .5 mL [facility] 6+ MO Branch (FLUZONE/FLULAVAL/F LUARIX) Influenza Virus Unknown Completed [facility]it y of Vaccine Quad .5 mL [facility] 6+ MO Branch (FLUZONE/FLULAVAL/F LUARIX) TDAP (ADACEL) Unknown Completed [facility] of VACCINE [facility] Influenza Virus Unknown Completed [facility]it y of Vaccine Recomb Quad [facility], Preserv and ABX Branc h Free 18-64 YRS Influenza Virus Unknown Completed [facility] y of Vaccine [facility] Influenza Virus Unknown Completed [facility] y of Vaccine [facility] Influenza Virus Unknown Completed [facility] y of Vaccine Quad .5 mL [facility] 6+ MO Branch (FLUZONE/FLULAVAL/F LUARIX) Influenza Virus Unknown Completed [facility] y of Vaccine Quad .5 mL [facility] 6+ MO Branch (FLUZONE/FLULAVAL/F LUARIX) TDAP (ADACEL) Unknown Completed [facility] VACCINE [facility] Influenza Virus Unknown Completed [facility] y of Vaccine Recomb Quad [facility], Preserv and ABX Branc h Free 18-64 YRS Influenza Virus Unknown Completed [facility] y of Vaccine [facility] Influenza Virus Unknown Completed [facility] y of Vaccine [facility] Influenza Virus Unknown Completed [facility] y of Vaccine Quad .5 mL [facility] 6+ MO Branch (FLUZONE/FLULAVAL/F LUARIX) Influenza Virus Unknown Completed [facility] y of Vaccine Quad .5 mL [facility] 6+ MO Branch (FLUZONE/FLULAVAL/F LUARIX) TDAP (ADACEL) Unknown Completed [facility] of [facility] Influenza Virus Unknown Completed [facility] y of Vaccine Recomb Quad [facility], Preserv and ABX Branc h Free 18-64 YRS Influenza Virus Unknown Completed [facility] Vaccine [facility] [place] Influenza Virus Unknown Completed [facility] y of Vaccine [facility] Influenza Virus Unknown Completed [facility] y of Vaccine Quad .5 mL [facility] 6+ MO Branch (FLUZONE/FLULAVAL/F LUARIX) Influenza Virus Unknown Completed [facility] y of Vaccine Quad .5 mL [facility] 6+ MO Branch (FLUZONE/FLULAVAL/F LUARIX) TDAP (ADACEL) Unknown Completed [facility] of VACCINE [facility] Influenza Virus Unknown Completed [facility] y of Vaccine Recomb Quad [facility], Preserv and ABX Branc h Free 18-64 YRS Influenza Virus Unknown Completed [facility] y of Vaccine [facility] Influenza Virus Unknown Completed [facility] y of Vaccine Quad .5 mL [facility] 6+ MO Branch (FLUZONE/FLULAVAL/F LUARIX) TDAP (ADACEL) Unknown Completed [facility] Influenza Virus Unknown Completed [facility] y of Vaccine Recomb Quad [facility], Preserv and ABX Branc h Free 18-64 YRS Influenza Virus Unknown Completed [facility] y of Vaccine [facility] Influenza Virus Unknown Completed [facility] y of Vaccine Quad .5 mL [facility] 6+ MO Branch (FLUZONE/FLULAVAL/F LUARIX) TDAP (ADACEL) Unknown Completed [facility] of VACCINE [facility] Influenza Virus Unknown Completed [facility] y of Vaccine Recomb Quad [facility], Preserv and ABX Branc h Free 18-64 YRS Influenza Virus Unknown Completed [facility] y of Vaccine [facility] [place] Influenza Virus Unknown Completed [facility] y of Vaccine Quad .5 mL [facility] 6+ MO Branch (FLUZONE/FLULAVAL/F LUARIX) TDAP (ADACEL) Unknown Completed [facility] Influenza Virus Unknown Completed [facility] y of Vaccine Recomb Quad [facility], Preserv and ABX Branc h Free 18-64 YRS Influenza Virus Unknown Completed [facility]it y of Vaccine [facility] Influenza Virus Unknown Completed [facility] y of Vaccine Quad .5 mL [facility] 6+ MO Branch (FLUZONE/FLULAVAL/F LUARIX) TDAP (ADACEL) Unknown Completed [facility] Influenza Virus Unknown Completed [facility] y of Vaccine Recomb Quad [facility], Preserv and ABX Branc h Free 18-64 YRS Influenza Virus Unknown Completed [facility]it y of Vaccine [facility] Influenza Virus Unknown Completed [facility] y of Vaccine Quad .5 mL [facility] 6+ MO Branch (FLUZONE/FLULAVAL/F LUARIX) TDAP (ADACEL) Unknown Completed [facility] Influenza Virus Unknown Completed [facility]it y of Vaccine Recomb Quad [facility], Preserv and ABX Branc h Free 18-64 YRS Influenza Virus Unknown Completed [facility]it y of Vaccine [facility] Influenza Virus Unknown Completed [facility] y of Vaccine Quad .5 mL [facility] 6+ MO Branch (FLUZONE/FLULAVAL/F LUARIX) TDAP (ADACEL) Unknown Completed [facility] Influenza Virus Unknown Completed [facility] y of Vaccine Recomb Quad [facility] , Preserv and ABX Branc h Free 18-64 YRS Influenza Virus Unknown Completed [facility]it y of Vaccine [facility] Influenza Virus Unknown Completed [facility] y of Vaccine Quad .5 mL [facility] 6+ MO Branch (FLUZONE/FLULAVAL/F LUARIX) TDAP (ADACEL) Unknown Completed [facility] Influenza Virus Unknown Completed [facility] y of Vaccine Recomb Quad [facility], Preserv and ABX Branc h Free 18-64 YRS Influenza Virus Unknown Completed [facility]it y of Vaccine [facility] Influenza Virus Unknown Completed [facility] y of Vaccine Quad .5 mL [facility] 6+ MO Branch (FLUZONE/FLULAVAL/F LUARIX) TDAP (ADACEL) Unknown Completed [facility] Influenza Virus Unknown Completed [facility] y of Vaccine Recomb Quad [facility], Preserv and ABX Branc h Free 18-64 YRS Influenza Virus Unknown Completed [facility] Vaccine [facility] [place] Influenza Virus Unknown Completed [facility] y of Vaccine Quad .5 mL [facility] 6+ MO Branch (FLUZONE/FLULAVAL/F LUARIX) TDAP (ADACEL) Unknown Completed [facility] Influenza Virus Unknown Completed [facility] y of Vaccine Recomb Quad [facility], Preserv and ABX Branc h Free 18-64 YRS Influenza Virus Unknown Completed [facility] Vaccine [facility] [place] Influenza Virus Unknown Completed [facility] y of Vaccine Quad .5 mL [facility] 6+ MO Branch (FLUZONE/FLULAVAL/F LUARIX) TDAP (ADACEL) Unknown Completed [facility] Influenza Virus Unknown Completed [facility] y of Vaccine Recomb Quad [facility], Preserv and ABX Branc h Free 18-64 YRS Influenza Virus Unknown Completed [facility] y of Vaccine [facility] Influenza Virus Unknown Completed [facility] y of Vaccine Quad .5 mL [facility] 6+ MO Branch (FLUZONE/FLULAVAL/F LUARIX) TDAP (ADACEL) Unknown Completed [facility] Influenza Virus Unknown Completed [facility] y of Vaccine Recomb Quad [facility], Preserv and ABX Branc h Free 18-64 YRS Influenza Virus Unknown Completed [facility]it y of Vaccine [facility] Influenza Virus Unknown Completed [facility] y of Vaccine Quad .5 mL [facility] 6+ MO Branch (FLUZONE/FLULAVAL/F LUARIX) TDAP (ADACEL) Unknown Completed [facility] Influenza Virus Unknown Completed [facility]it y of Vaccine Recomb Quad [facility], Preserv and ABX Branc h Free 18-64 YRS Influenza Virus Unknown Completed [facility]it y of Vaccine [facility] Influenza Virus Unknown Completed [facility] y of Vaccine Quad .5 mL [facility] 6+ MO Branch (FLUZONE/FLULAVAL/F LUARIX) TDAP (ADACEL) Unknown Completed [facility] Influenza Virus Unknown Completed [facility] y of Vaccine Recomb Quad [facility], Preserv and ABX Branc h Free 18-64 YRS Influenza Virus Unknown Completed [facility]it y of Vaccine [facility] Influenza Virus Unknown Completed [facility] y of Vaccine Quad .5 mL [facility] 6+ MO Branch (FLUZONE/FLULAVAL/F LUARIX) TDAP (ADACEL) Unknown Completed [facility] Influenza Virus Unknown Completed [facility] of Vaccine Recomb Quad [facility], Preserv and ABX Branc h Free 18-64 YRS Influenza Virus Unknown Completed [facility]ine [place] [facility] Influenza Virus Unknown Completed [facility] Vaccine Quad .5 mL [facility] 6+ MO Branch (FLUZONE/FLULAVAL/F LUARIX) TDAP (ADACEL) Unknown Completed [facility] Influenza Virus Unknown Completed [facility] Vaccine Recomb Quad [facility], Preserv and ABX Branc h Free 18-64 YRS Influenza Virus Unknown Completed [facility] Influenza Virus Unknown Completed [facility] Vaccine Quad .5 mL [facility] IM 6+ [facility] (FLUZONE/FLULAVAL/F LUARIX) TDAP (ADACEL) Unknown Completed [facility] Influenza Virus Unknown Completed [facility]it y of Vaccine Recomb Quad [facility] IM, Preserv and ABX Branc h Free 18-64 YRS Influenza Virus Unknown Completed Universit y of Vaccine [facility] Influenza Virus Unknown Completed [facility] of Vaccine Quad .5 mL [facility] IM 6+ [facility] Branch (FLUZONE/FLULAVAL/F LUARIX) TDAP (ADACEL) Unknown Completed [facility] Influenza Virus Unknown Completed [facility]it y of Vaccine Recomb Quad [facility], Preserv and ABX Branc h Free 18-64 YRS Influenza Virus Unknown Completed [facility] Vaccine [facility] [place] Influenza Virus Unknown Completed [facility] of Vaccine Quad .5 mL [facility] IM 6+ [facility] Branch (FLUZONE/FLULAVAL/F LUARIX) TDAP (ADACEL) Unknown Completed [facility] Influenza Virus Unknown Completed [facility] Vaccine Recomb Quad [facility], Preserv and ABX Branc h Free 18-64 YRS Influenza Virus Unknown Completed [facility] y of Vaccine [facility] Influenza Virus Unknown Completed [facility] of Vaccine Quad .5 mL [facility] IM 6+ [facility] Branch (FLUZONE/FLULAVAL/F LUARIX) TDAP (ADACEL) Unknown Completed [facility] Influenza Virus Unknown Completed [facility] Vaccine Recomb [facility], Preserv and ABX Branc h Free 18-64 YRS Influenza Virus Unknown Completed [facility] Vaccine [facility] [place] Influenza Virus Unknown Completed [facility] of Vaccine Quad .5 mL [facility] IM 6+ [facility] Branch (FLUZONE/FLULAVAL/F LUARIX) TDAP (ADACEL) Unknown Completed [facility] Influenza Virus Unknown Completed [facility] Vaccine Recomb Quad [facility], Preserv and ABX Branc h Free 18-64 YRS Influenza Virus Unknown Completed [facility]it y of Vaccine [facility] Influenza Virus Unknown Completed [facility] of Vaccine Quad .5 mL [facility] IM 6+ [facility] Branch (FLUZONE/FLULAVAL/F LUARIX) TDAP (ADACEL) Unknown Completed [facility] Influenza Virus Unknown Completed [facility] Vaccine Recomb Quad [facility], Preserv and ABX Branc h Free 18-64 YRS Influenza Virus Unknown Completed [facility] y of Vaccine [facility] Influenza Virus Unknown Completed [facility] Vaccine Quad .5 mL [facility] IM 6+ [facility] Branch (FLUZONE/FLULAVAL/F LUARIX) TDAP (ADACEL) Unknown Completed [facility] Influenza Virus Unknown Completed [facility]it y of Vaccine Recomb Quad [facility], Preserv and ABX Branc h Free 18-64 YRS Influenza Virus Unknown Completed [facility] y of Vaccine [facility] Influenza Virus Unknown Completed [facility] of Vaccine Quad .5 mL [facility] IM 6+ [facility] Branch (FLUZONE/FLULAVAL/F LUARIX) TDAP (ADACEL) Unknown Completed [facility] Influenza Virus Unknown Completed [facility] y of Vaccine Recomb Quad [facility], Preserv and ABX Branc h Free 18-64 YRS Influenza Virus Unknown Completed Universit y of [facility] Influenza Virus Unknown Completed [facility] of Vaccine Quad .5 mL [facility] IM 6+ MO Branch (FLUZONE/FLULAVAL/F LUARIX) TDAP (ADACEL) Unknown Completed [facility] Influenza Virus Unknown Completed [facility] Vaccine Recomb Quad [facility], Preserv and ABX Branc h Free 18-64 YRS Influenza Virus Unknown Completed [facility] y of Vaccine [facility] Influenza Virus Unknown Completed [facility] of Vaccine Quad .5 mL [facility] IM 6+ [facility] Branch (FLUZONE/FLULAVAL/F LUARIX) TDAP (ADACEL) Unknown Completed [facility] Influenza Virus Unknown Completed [facility] of Vaccine Recomb Quad [facility], Preserv and ABX Branc h Free 18-64 YRS Influenza Virus Unknown Completed [facility] y of Vaccine [facility] Influenza Virus Unknown Completed [facility] of Vaccine Quad .5 mL [facility] IM 6+ [facility] Branch (FLUZONE/FLULAVAL/F LUARIX) TDAP (ADACEL) Unknown Completed [facility] Influenza Virus Unknown Completed [facility] of Vaccine Recomb Quad [facility], Preserv and ABX Branc h Free 18-64 YRS Influenza Virus Unknown Completed [facility] Vaccine [facility] [place] Influenza Virus Unknown Completed [facility] of Vaccine Quad .5 mL [facility] IM 6+ [facility] Branch (FLUZONE/FLULAVAL/F LUARIX) TDAP (ADACEL) Unknown Completed [facility] Influenza Virus Unknown Completed [facility] Vaccine Recomb Quad [facility], Preserv and ABX Branc h Free 18-64 YRS Influenza Virus Unknown Completed [facility] y of Vaccine [facility] Influenza Virus Unknown Completed [facility] of Vaccine Quad .5 mL [facility] 6+ MO Branch (FLUZONE/FLULAVAL/F LUARIX) TDAP (ADACEL) Unknown Completed [facility] Influenza Virus Unknown Completed [facility] of Vaccine Recomb Quad [facility], Preserv and ABX Branc h Free 18-64 YRS Influenza Virus Unknown Completed [facility] y of Vaccine [facility] Influenza Virus Unknown Completed [facility] of Vaccine Quad .5 mL [facility] IM 6+ MO Branch (FLUZONE/FLULAVAL/F LUARIX) TDAP (ADACEL) Unknown Completed [facility] Influenza Virus Unknown Completed [facility] of Vaccine Recomb Quad [facility], Preserv and ABX Branc h Free 18-64 YRS Influenza Virus Unknown Completed [facility] y of Vaccine [facility] Influenza Virus Unknown Completed [facility] of Vaccine Quad .5 mL [facility] IM 6+ [facility] Branch (FLUZONE/FLULAVAL/F LUARIX) TDAP (ADACEL) Unknown Completed [facility] Influenza Virus Unknown Completed [facility] of Vaccine Recomb Quad [facility], Preserv and ABX Branc h Free 18-64 YRS Influenza Virus Unknown Completed [facility] y of Vaccine [facility] Influenza Virus Unknown Completed [facility] of Vaccine Quad .5 mL [facility] 6+ MO Branch (FLUZONE/FLULAVAL/F LUARIX) TDAP (ADACEL) Unknown Completed [facility] Influenza Virus Unknown Completed [facility] of Vaccine Recomb Quad [facility], Preserv and ABX Branc h Free 18-64 YRS Influenza Virus Unknown Completed [facility] Influenza Virus Unknown Completed [facility] of Vaccine Quad .5 mL [facility] 6+ MO Branch (FLUZONE/FLULAVAL/F LUARIX) TDAP (ADACEL) Unknown Completed [facility] Influenza Virus Unknown Completed [facility] of Vaccine Recomb Quad [facility], Preserv and ABX Branc h Free 18-64 YRS Influenza Virus Unknown Completed [facility] Influenza Virus Unknown Completed [facility] of Vaccine Quad .5 mL [facility] 6+ MO Branch (FLUZONE/FLULAVAL/F LUARIX) TDAP (ADACEL) Unknown Completed [facility] Influenza Virus Unknown Completed [facility] of Vaccine Recomb Quad [facility] IM, Preserv and ABX Branc h Free 18-64 YRS Influenza Virus Unknown Completed [facility] y of Vaccine [facility] Influenza Virus Unknown Completed [facility] of Vaccine Quad .5 mL [facility] 6+ MO Branch (FLUZONE/FLULAVAL/F LUARIX) TDAP (ADACEL) Unknown Completed [facility] Influenza Virus Unknown Completed [facility] y of Vaccine Recomb Quad [facility], Preserv and ABX Branc h Free 18-64 YRS Influenza Virus Unknown Completed [facility] y of Vaccine [facility] Influenza Virus Unknown Completed [facility] of Vaccine Quad .5 mL [facility] IM 6+ [facility] Branch (FLUZONE/FLULAVAL/F LUARIX) TDAP (ADACEL) Unknown Completed [facility] Influenza Virus Unknown Completed [facility] y of Vaccine Recomb Quad [facility] IM, Preserv and ABX Branc h Free 18-64 YRS Influenza Virus Unknown Completed [facility] y of Vaccine [facility] Influenza Virus Unknown Completed [facility] of Vaccine Quad .5 mL [facility] IM 6+ [facility] Branch (FLUZONE/FLULAVAL/F LUARIX) TDAP (ADACEL) Unknown Completed [facility] Influenza Virus Unknown Completed [facility] of Vaccine Quad .5 mL [facility] IM 6+ [facility] Branch (FLUZONE/FLULAVAL/F LUARIX) TDAP (ADACEL) Unknown Completed [facility] Influenza Virus Unknown Completed [facility] Vaccine Quad .5 mL [facility] 6+ [facility] (FLUZONE/FLULAVAL/F LUARIX) TDAP (ADACEL) Unknown Completed [facility] Influenza Virus Unknown Completed [facility]it y of Vaccine Quad .5 mL [facility] IM 6+ MO Branch (FLUZONE/FLULAVAL/F LUARIX) TDAP (ADACEL) Unknown Completed [facility] Influenza Virus Unknown Completed [facility]it y of Vaccine Quad .5 mL [facility] IM 6+ MO Branch (FLUZONE/FLULAVAL/F LUARIX) TDAP (ADACEL) Unknown Completed [facility] Influenza Virus Unknown Completed [facility]it y of Vaccine Quad .5 mL [facility] IM 6+ MO Branch (FLUZONE/FLULAVAL/F LUARIX) TDAP (ADACEL) Unknown Completed [facility] Influenza Virus Unknown Completed [facility] y of Vaccine Quad .5 mL [facility] 6+ MO Branch (FLUZONE/FLULAVAL/F LUARIX) TDAP (ADACEL) Unknown Completed [facility] Influenza Virus Unknown Completed [facility] y of Vaccine Quad .5 mL [facility] IM 6+ MO Branch (FLUZONE/FLULAVAL/F LUARIX) TDAP (ADACEL) Unknown Completed [facility] Influenza Virus Unknown Completed [facility] y of Vaccine Quad .5 mL [facility] 6+ MO Branch (FLUZONE/FLULAVAL/F LUARIX) TDAP (ADACEL) Unknown Completed [facility] Vital Signs Vital Name Observation Time Observation Value Comments Source Systolic blood 2023-01-15 16:56:00 132 mm[Hg] Univer sity of pressure [facility] Diastolic blood 2023-01-15 16:56:00 91 mm[Hg] [facility] Heart rate 2023-01-15 16:56:00 67 /min [facility] Body temperature 2023-01-15 16:56:00 36.78 Irene [facility] Res[facility] rate 2023-01-15 16:56:00 20 /min [facility] Oxygen saturation in 2023-01-15 16:56:00 100 /min [facility] Arterial blood by [facility] Pulse oximetry Branch Body height 2023-01-12 09:05:00 154.9 cm [facility] Body weight 2023-01-12 09:05:00 58.968 kg [facility] BMI 2023-01-12 09:05:00 24.56 kg/m2 [facility] Systolic blood 2022-11-21 21:40:00 122 mm[Hg] Univer sity of pressure [facility] Diastolic blood 2022-11-21 21:40:00 90 mm[Hg] Unive rsity of pressure [facility] Heart rate 2022-11-21 21:40:00 92 /min [facility] Respiratory rate 2022-11-21 21:40:00 16 /min Univ ersity of [facility] Oxygen saturation in 2022-11-21 21:40:00 99 /min University of Arterial blood by [facility] Pulse oximetry Branch Body temperature 2022-11-21 18:07:00 37.28 Irene [facility] ers[facility] Body weight 2022-11-21 18:07:00 68.04 kg [facility] BMI 2022-11-21 18:07:00 28.34 kg/m2 [facility] Systolic blood 2022-09-05 17:22:00 139 mm[Hg] Univer sity of pressure [facility] Diastolic blood 2022-09-05 17:22:00 91 mm[Hg] Unive rsity of pressure [facility] Heart rate 2022-09-05 17:22:00 120 /min [facility] Respiratory rate 2022-09-05 17:22:00 18 /min Univ ersity of [facility] Oxygen saturation in 2022-09-05 17:22:00 99 /min University of Arterial blood by [facility] yessi Pulse oximetry Branch Body temperature 2022-09-05 13:43:00 37.11 Irene [facility] ers[facility] Body weight 2022-09-05 13:43:00 68.04 kg [facility] BMI 2022-09-05 13:43:00 28.34 kg/m2 [facility] Systolic blood 2022-08-01 00:49:00 138 mm[Hg] Univer sity of pressure [facility] Diastolic blood 2022-08-01 00:49:00 104 mm[Hg] Unive rsity of pressure [facility] Heart rate 2022-08-01 00:49:00 108 /min [facility] Respiratory rate 2022-08-01 00:49:00 18 /min Univ ersity of [facility] Oxygen saturation in 2022-08-01 00:49:00 [...] /min University of Arterial blood by [place] [employer] yessi Pulse oximetry Branch Systolic blood 2022-06-23 [...] 2022-06-23 15:26:00 29.74 kg/m2 [facility] Oxygen saturation in 2022-06-23 15:26:00 99 /min [facility] of Arterial blood by [facility] [employer] yessi Pulse oximetry Branch Systolic blood 2022-05-05 22:05:00 126 mm[Hg] Univer sity of pressure [facility] Diastolic blood 2022-05-05 22:05:00 75 mm[Hg] Unive rsity of pressure [facility] Heart rate 2022-05-05 22:05:00 99 /min [facility] Respiratory rate 2022-05-05 22:05:00 16 /min Univ ersity of [facility] Oxygen saturation in 2022-05-05 22:05:00 99 /min University of Arterial blood by [facility] Pulse oximetry Branch Body temperature 2022-05-05 18:24:00 37.11 Irene [facility] ers[facility] Body height 2022-05-05 18:24:00 154.9 cm [facility] Body weight 2022-05-05 18:24:00 54.432 kg [facility] BMI 2022-05-05 18:24:00 22.67 kg/m2 [facility] Systolic blood 2022-04-26 14:28:00 135 mm[Hg] Univer sity of pressure [facility] Diastolic blood 2022-04-26 14:28:00 95 mm[Hg] Unive rsity of pressure [facility] Heart rate 2022-04-26 14:28:00 93 /min [facility] Body temperature 2022-04-26 14:28:00 36.89 Irene [facility] Respiratory rate 2022-04-26 14:28:00 18 /min Univ ers[facility] Body height 2022-04-26 14:28:00 154.9 cm [facility] Body weight 2022-04-26 14:28:00 54.432 kg [facility] BMI 2022-04-26 14:28:00 22.67 kg/m2 [facility] Oxygen saturation in 2022-04-26 14:28:00 100 /min [facility]terial blood by [facility] P[facility] oxim[facility] Systolic blood 2022-04-26 00:21:00 151 mm[Hg] Univer sity of pressure [facility] Diastolic blood 2022-04-26 00:21:00 98 mm[Hg] Unive rsity of pressure [facility] Heart rate 2022-04-26 00:21:00 98 /min [facility] Body temperature 2022-04-26 00:21:00 36.72 Irene [facility] Respiratory rate 2022-04-26 00:21:00 18 /min Univ ers[facility] Body height 2022-04-26 00:21:00 154.9 cm [facility] Body weight 2022-04-26 00:21:00 54.432 kg [facility] BMI 2022-04-26 00:21:00 22.67 kg/m2 [facility] Oxygen saturation in 2022-04-26 00:21:00 100 /min [facility] of Arterial blood by [facility] Pulse oximetry Branch Systolic blood 2022-04-09 14:39:00 122 mm[Hg] Univer sity of pressure [facility] Diastolic blood 2022-04-09 14:39:00 84 mm[Hg] Unive rsity of pressure [facility] Heart rate 2022-04-09 14:39:00 96 /min [facility] Body height 2022-04-09 14:39:00 154.9 cm [facility] Body weight 2022-04-09 14:39:00 60.328 kg [facility] BMI 2022-04-09 14:39:00 25.13 kg/m2 [facility] Oxygen saturation in 2022-04-09 14:39:00 98 /min [facility] of Arterial blood by [facility] yessi Pulse oximetry Branch Systolic blood 2022-04-07 22:43:36 131 mm[Hg] Univer sity of pressure [facility] Diastolic blood 2022-04-07 22:43:36 83 mm[Hg] Unive rsity of pressure [facility] Heart rate 2022-04-07 22:43:36 113 /min [facility] Respiratory rate 2022-04-07 22:43:36 18 /min Univ ers[facility] Oxygen saturation in 2022-04-07 22:43:36 97 /min [facility] of Arterial blood by [place] [employer] yessi Pulse oximetry Branch Body temperature 2022-04-07 [...] /min [facility] of Arterial blood by [place] [employer] [facility] Pulse oximetry Branch Body temperature 2022-03-24 [...] University of Arterial blood by [facility] yessi Pulse oximetry Branch Systolic blood 2022-03-15 15:02:00 115 mm[Hg] Univer sity of pressure [facility] Diastolic blood 2022-03-15 15:02:00 70 mm[Hg] Unive rsity of pressure [facility] Heart rate 2022-03-15 15:02:00 85 /min [facility] [place] Respiratory rate 2022-03-15 15:02:00 20 /min Univ ersity [facility] Oxygen saturation in 2022-03-15 15:02:00 99 /min [facility] of Arterial blood by [facility] Pulse oximetry Branch Body temperature 2022-03-15 13:38:00 36.94 Irene [facility] ers[facility] Body height 2022-03-15 13:38:00 154.9 cm [facility] [place] Body weight 2022-03-15 13:38:00 54.432 kg [facility] [place] BMI 2022-03-15 13:38:00 22.67 kg/m2 [facility] Systolic blood 2022-03-11 16:30:00 124 mm[Hg] Univer sity of pressure [facility] Diastolic blood 2022-03-11 16:30:00 88 mm[Hg] Unive rsity of pressure [facility] Heart rate 2022-03-11 16:30:00 93 /min [facility] [place] Body temperature 2022-03-11 16:30:00 36.67 Irene [facility] of [facility] [place] Respiratory rate 2022-03-11 16:30:00 14 /min Univ ersity of [facility] Oxygen saturation in 2022-03-11 16:30:00 100 /min University of Arterial blood by [facility] Pulse oximetry Branch Body height 2022-03-11 14:19:00 [...] 2022-02-21 06:16:00 154.9 cm [facility] Body weight 2022-02-21 06:16:00 60.963 kg [facility] BMI 2022-02-21 06:16:00 25.39 kg/m2 [facility] Systolic blood 2022 20:08:00 136 mm[Hg] Univer sity of pressure [facility] Diastolic blood 2022 20:08:00 96 mm[Hg] Unive rsity of pressure [facility] Heart rate 2022 20:08:00 100 /min [facility] Respiratory rate 2022 20:08:00 20 /min Univ ersity [facility] Oxygen saturation in 2022 20:08:00 98 /min University of Arterial blood by [employer] Pulse oximetry Branch Body temperature 2022 16:56:00 37.06 Irene [facility] Body weight 2022 16:56:00 54.432 kg [facility] BMI 2022 16:56:00 22.67 kg/m2 [facility] Systolic blood 2022-02-05 14:31:00 128 mm[Hg] Univer sity of pressure [facility] Diastolic blood 2022-02-05 14:31:00 84 mm[Hg] Unive rsity of pressure [facility] Heart rate 2022-02-05 14:31:00 86 /min [facility] Body temperature 2022-02-05 14:31:00 37.89 Irene [facility] Respiratory rate 2022-02-05 14:31:00 18 /min Univ ers[facility] Body height 2022-02-05 14:31:00 154.9 cm [facility] Body weight 2022-02-05 14:31:00 54.432 kg [facility] BMI 2022-02-05 14:31:00 22.67 kg/m2 [facility] Oxygen saturation in 2022-02-05 14:31:00 98 /min University of Arterial blood by [employer] yessi Pulse oximetry Branch Systolic blood 2022-01-18 14:50:00 144 mm[Hg] Univer sity of pressure [facility] Diastolic blood 2022-01-18 14:50:00 92 mm[Hg] Unive rsity of pressure [facility] Heart rate 2022-01-18 14:50:00 94 /min [facility] Respiratory rate 2022-01-18 14:50:00 20 /min Univ ersity [facility] Oxygen saturation in 2022-01-18 14:50:00 99 /min [facility] of Arterial blood by [facility] yessi Pulse oximetry Branch Body weight 2022-01-18 [...] University of Arterial blood by [facility] yessi Pulse oximetry Branch Body temperature 2022-01-15 13:32:00 37.11 Irene [facility] Body height 2022-01-15 13:32:00 154.9 cm [facility] Body weight 2022-01-15 13:32:00 54.432 [...] /min [facility] Arterial blood by [place] [facility] Pulse oxim[facility] Body height 2022-01-08 23:03:00 154.9 cm [facility] Body weight 2022-01-08 23:03:00 58.06 kg [facility] BMI 2022-01-08 23:03:00 24.19 kg/m2 [facility] Systolic blood 2021-12-12 18:00:00 126 mm[Hg] Univer sity of pressure [facility] Diastolic blood 2021-12-12 18:00:00 87 mm[Hg] Unive rsity of pressure [facility] Heart rate 2021-12-12 18:00:00 86 /min [facility] Body temperature 2021-12-12 18:00:00 36.89 Irene [facility] Respiratory rate 2021-12-12 18:00:00 18 /min Univ ers[facility] Body height 2021-12-12 18:00:00 154.9 cm [facility] Body weight 2021-12-12 18:00:00 57.153 kg [facility] BMI 2021-12-12 18:00:00 23.81 kg/m2 [facility] Systolic blood 2023-01-14 16:32:00 138 mm[Hg] Univer sity of pressure [facility] Diastolic blood 2023-01-14 16:32:00 84 mm[Hg] Unive rsity of pressure [facility] Heart rate 2023-01-14 16:32:00 67 /min [facility] Body temperature 2023-01-14 16:32:00 36.5 Irene [facility] Respiratory rate 2023-01-14 16:32:00 16 /min Univ [facility] Oxygen saturation in 2023-01-14 16:32:00 99 /min [facility] of Arterial blood by [employer] Pulse oximetry Branch Body height 2023-01-12 09:05:00 154.9 cm [facility] Body weight 2023-01-12 09:05:00 58.968 kg [facility] BMI 2023-01-12 09:05:00 24.56 kg/m2 [facility] Procedures Procedure Date / Time Performing Clinician Source Performed [facility]OSPHOR[facility] 2023-01-15 08:15:00 [facility] MAGNESIUM 2023-01-15 08:15:00 [facility] BASIC METABOLIC PANEL 2023-01-15 08:15:00 Benita Rockwell [facility] versity [facility] (NA, K, CL, CO2, GLUCOSE, Medica l Branch BUN, CREATININE, CA) CBC WITH DIFF 2023-01-15 08:15:00 [facility] PROTHROMBIN TIME / INR 2023-01-15 08:15:00 Benita Rockwell [facility] MAGNESIUM 2023-01-14 10:14:00 [facility] PHOSPHORUS 2023-01-14 10:14:00 [facility] BASIC METABOLIC PANEL 2023-01-14 10:14:00 Benita Rockwell [facility] (NA, K, CL, CO2, GLUCOSE, Medica l Branch BUN, CREATININE, CA) CBC WITH DIFF 2023-01-14 10:14:00 [facility] PHOSPHORUS 2023-01-14 10:14:00 [facility] MAGNESIUM 2023-01-14 10:14:00 [facility] BASIC METABOLIC PANEL 2023-01-14 10:14:00 Benita Rockwell [facility] (NA, K, CL, CO2, GLUCOSE, Medica l Branch BUN, CREATININE, CA) CBC WITH DIFF 2023-01-14 10:14:00 [facility] CBC WITH DIFF 2023-01-13 10:45:00 Vaishnavi, [facility] BASIC METABOLIC PANEL 2023-01-13 10:45:00 Vaishnavi, [facility] (NA, K, CL, CO2, GLUCOSE, Medica l Branch BUN, CREATININE, CA) MAGNESIUM 2023-01-13 10:45:00 Vaishnavi [facility] PHOSPHORUS 2023-01-13 10:45:00 Vaishnavi, [facility] HEPATIC FUNCTION PANEL 2023-01-13 10:45:00 [id number] (ALB,T.PRO,BILI Medical Branch T,BU/BC,ALT,AST,ALK PHOS) PHOSPHORUS 2023-01-13 10:45:00 Vaishnavi, [facility] MAGNESIUM 2023-01-13 10:45:00 Vaishnavi, [facility] HEPATIC FUNCTION PANEL 2023-01-13 10:45:00 Vaishnavi, [facility] ([id number]) (ALB,T.PRO,BILI Medical Branch T,BU/BC,ALT,AST,ALK PHOS) BASIC METABOLIC PANEL 2023-01-13 10:45:00 Vaishnavi, [facility] (NA, K, CL, CO2, GLUCOSE, Medica l Branch BUN, CREATININE, CA) CBC WITH DIFF 2023-01-13 10:45:00 Vaishnavi [facility] GLUCOSE BODY FLUID 2023-01-12 20:44:00 VaishnaviRodolfo wade [facility] BODY FLUID MANUAL DIFF 2023-01-12 20:44:00 Vaishnavi, [facility] T.PROTEIN BODY FLUID 2023-01-12 20:44:00 VaishnaviRodolfo wade [facility] ASPIRATE OR ABSCESS 2023-01-12 20:44:00 VaishnaviRodolfo wade [facility] CULTURE(AEROBIC/ANAEROBIC [facility] [place] ) [facility] TOTAL BODY FLUID 2023-01-12 20:44:00 VaishnaviRodolfo dailey [facility] GLUCOSE BODY FLUID 2023-01-12 20:44:00 Rodolfo Riggins Uni [facility] T.PROTEIN BODY FLUID 2023-01-12 20:44:00 Rodolfo Riggins [facility] BODY FLUID DIRECT COUNT 2023-01-12 20:44:[address] [facility] ASPIRATE OR ABSCESS 2023-01-12 20:44:00 VaishnaviRodolfo dailey [facility] CULTURE(AEROBIC/ANAEROBIC [facility] ) LDH TOTAL BODY FLUID 2023-01-12 20:44:00 VaishnaviRodolfo dailey [facility] PROTHROMBIN TIME / INR 2023-01-12 08:13:[address] [facility] PROTHROMBIN TIME / INR 2023-01-12 08:13:[address] [facility] COMP. METABOLIC PANEL 2023-01-12 03:49:00 Zehra García [facility] ([id number]) [facility] COMP. METABOLIC PANEL 2023-01-12 03:49:00 Zehra García [facility] ([id number]) [facility] CT ABDOMEN PELVIS W 2023-01-12 03:32:06 Zehra García [facility] CONTRAST [facility] CT ABDOMEN PELVIS W 2023-01-12 03:32:06 Zehra García [facility] CONTRAST [facility] POCT TEST 2023-01-12 03:02:00 Zehra García [facility] POCT TEST 2023-01-12 03:02:00 Zehra García [facility] URINALYSIS 2023-01-12 02:56:00 Ricky Zehra [facility] LIPASE 2023-01-12 02:56:00 Ricky Zehra [facility] TOTAL BETA HCG ASSAY 2023-01-12 02:56:00 Zehra García [facility] CBC WITH DIFF 2023-01-12 02:56:00 Ricky [facility] EXTRA TUBE ORANGE 2023-01-12 02:56:00 Artur, [facility] EXTRA TUBE LAV 2023-01-12 02:56:00 Artur [facility] o [facility] LIPASE 2023-01-12 02:56:00 Ricky Zehra [facility] TOTAL BETA HCG ASSAY 2023-01-12 02:56:00 Zehra García [facility] CBC WITH DIFF 2023-01-12 02:56:00 Ricky Zehra [facility] URINALYSIS 2023-01-12 02:56:00 Zehra García [facility] EXTRA TUBE LAV 2023-01-12 02:56:00 Artur [facility] o f [facility] EXTRA TUBE ORANGE 2023-01-12 02:56:00 Artur [facility] CONSENT/REFUSAL FOR 2023-01-12 01:46:10 Doctor Unassigned, No [facility] [place] [facility] Name Medical Branch CONSENT/REFUSAL FOR 2023-01-12 01:46:10 Doctor Unassigned, No [facility] [place] DIAGNOSIS AND TREATMENT Name Medical Branch ASSIGNMENT OF BENEFITS 2022-11-21 19:49:02 Doctor Unassigned, No [facility] Branch ASSIGNMENT OF BENEFITS 2022-11-21 19:49:02 Doctor Unassigned, No [facility] Branch CONSENT/REFUSAL FOR 2022-11-21 18:03:25 Doctor Unassigned, No [facility] [place] DIAGNOSIS AND TREATMENT Name Medical Branch CONSENT/REFUSAL FOR 2022-11-21 18:03:25 Doctor Unassigned, No [facility] [place] DIAGNOSIS AND TREATMENT Name [facility] EMERGENCY SERVICES 2022-11-21 05:01:00 Doctor Unassigned, No [facility] [place] AGREEMENTS AND Name [facility] Branch AUTHORIZATIONS CONSENT/REFUSAL FOR 2022-09-05 13:42:02 Doctor Unassigned, No [facility] [place] DIAGNOSIS AND TREATMENT Name Medical Branch LIPASE 2022-07-31 23:13:00 Manju Newell [facility] TEST, SERUM 2022-07-31 23:13:00 [facility] COMP. METABOLIC PANEL 2022-07-31 23:13:00 Manju Newell Un [facility] ([id number]) [facility] CBC WITH DIFF 2022-07-31 23:13:00 Manju Newell [facility] CONSENT/REFUSAL FOR 2022-07-31 22:49:17 Doctor Unassigned, No Un [facility] DIAGNOSIS AND TREATMENT Name [facility] XR ANKLE 3+ VW RIGHT 2022-07-15 16:00:00 Beba Kaur [facility] XR FOOT 3+ VW RIGHT 2022-07-15 16:00:00 Beba Kaur [facility] XR FOOT 3+ VW RIGHT 2022-07-15 16:00:00 Beba Kaur [facility] PATIENT FINANCIAL 2022-07-15 15:25:53 Doctor Unassigned, No [facility] POLICY [facility] POCT MOLECULAR STREP 2022-06-23 16:06:00 Unknown, Attending [facility] ASSIGNMENT OF BENEFITS 2022-06-23 15:18:28 Doctor Unassigned, No [facility] COMP. METABOLIC PANEL 2022-05-05 19:14:00 Karon Norton [facility] ([id number]) [facility] CBC WITH DIFF 2022-05-05 19:14:[address] [facility] POCT TEST 2022-05-05 19:00:00 Karon Norton [facility] URINALYSIS 2022-05-05 18:58:[address] [facility] CT ABDOMEN PELVIS WO 2022-04-26 15:11:00 Oc Bridges [facility] CONTRAST [facility] COMP. METABOLIC PANEL 2022-04-26 14:49:00 Oc Bridges [facility] ([id number]) [facility] CBC WITH DIFF 2022-04-26 14:49:00 Singer Oc [facility] URINALYSIS 2022-04-26 14:49:00 Singer Kell [facility] POCT TEST 2022-04-26 14:45:00 Oc Bridges [facility] CONSENT/REFUSAL FOR 2022-04-26 14:22:29 Doctor Unassigned, No [facility] [place] DIAGNOSIS AND TREATMENT Name Medical [place] POCT TEST 2022-04-26 01:22:00 Oc Bridges [facility] ASSIGNMENT OF BENEFITS 2022-04-26 00:54:02 Doctor Unassigned, No [facility] URINALYSIS 2022-04-26 00:45:00 Oc Bridges [place] [facility] CONSENT/REFUSAL FOR 2022-04-26 00:16:47 Doctor Unassigned, No [facility] [place] DIAGNOSIS AND TREATMENT [facility] Medical [place] BASIC METABOLIC PANEL 2022-04-07 22:35:00 Olamide Garvin [facility] (NA, K, CL, CO2, GLUCOSE, Medica l Branch BUN, CREATININE, CA) CBC WITH DIFF 2022-04-07 22:35:[address] [facility] URINALYSIS 2022-04-07 21:36:[address] [facility] URINE DRUG (IMMUNOASSAY) 2022-04-07 21:36:00 Olamide Garvin [facility] [place] [facility] DRUG Medical Bra nch SCREEN W/O REFLEX CONSENT/REFUSAL FOR 2022-04-07 19:29:15 Doctor Unassigned, No [facility] [place] DIAGNOS[facility] AND TREATMENT [facility] Medical [place] POCT TEST 2022-03-24 14:07:00 [facility] FOR 2022-03-24 13:27:20 Doctor Unassigned, No [facility] [place] DIAGNOSIS AND TREATMENT [facility] Medical [place] CT ABDOMEN PELVIS WO 2022-03-15 14:09:04 Lydia Gould [facility] CONTRAST [facility] URINALYSIS 2022-03-15 13:53:00 [facility] TEST 2022-03-15 13:52:00 Lydia Gould [facility] CONSENT/REFUSAL FOR 2022-03-15 13:37:02 Doctor Unassigned, No [facility] [place] DIAGNOSIS AND TREATMENT [facility] Medical [place] POCT TEST 2022-03-11 14:59:00 Angelica Viveros [facility] FLU VACC ([phone]), 6 2022-02-27 13:34:55 Ca Martinez [facility] MO-64 YRS, .5ML, IM, QUAD Medica l Branch (FLUCELVAX) NOTICE OF PRIVACY 2022-02-21 06:06:30 Doctor Unassigned, No [facility] PRACTICES Name Medical Branch CONSENT/REFUSAL FOR 2022-02-21 06:03:41 Doctor Unassigned, [facility] Name [facility] Branch XR ANKLE <3 VW RIGHT 2022 17:56:42 Maggie Hamilton [facility] CT ABDOMEN PELVIS W 2022 17:44:17 Maggie Hamilton [facility] CT TRAUMA CERVICAL SPINE 2022 17:43:49 Maggie Hamilton [facility] WO CONTRAST [facility] POCT TEST 2022 17:27:00 Maggie Hamilton [facility] COMP. METABOLIC PANEL 2022 17:17:00 Maggie Hamilton [facility] ([id number]) [facility] CBC WITH DIFF 2022 17:17:00 Maggie [facility] CONSENT/REFUSAL FOR 2022 16:53:13 Doctor Unassigned, No [facility] DIAGNOSIS AND TREATMENT Name Medical Branch US GALL BLADDER 2022-01-18 12:31:09 Rosendo Levy [place] o [facility] US PELVIS COMPLETE WITH 2022-01-18 12:21:13 Melvin Zhao [facility] TRANSVAGINAL [facility] Branch CT ABDOMEN PELVIS W 2022-01-18 11:20:50 Melvin Zhao [facility] CONTRAST [facility] Branch POCT TEST 2022-01-18 10:57:00 Juan Kennedy [facility] COVID-19 (ID NOW RAPID 2022-01-18 10:57:00 Juan Kennedy [facility] TESTING) Medical Branch URINALYSIS 2022-01-18 10:47:00 Kennedy, [facility] LIPASE 2022-01-18 10:29:00 Accident [facility] TEST, SERUM 2022-01-18 10:29:00 [facility] HEPATIC FUNCTION PANEL 2022-01-18 10:29:00 Kennedy [facility] ([id number]) (ALB,T.PRO,BILI Medical Branch T,BU/BC,ALT,AST,ALK PHOS) BASIC METABOLIC PANEL 2022-01-18 10:29:00 [facility] (NA, K, CL, CO2, GLUCOSE, Medica l Branch BUN, CREATININE, CA) CBC WITH DIFF 2022-01-18 10:29:00 [facility] CONSENT/REFUSAL FOR 2022-01-18 10:13:31 Doctor Unassigned, No [facility] DIAGNOS[facility] TREATMENT Name [facility] CT HEAD WO CONTRAST 2022-01-15 15:22:29 Kenny [facility] [place] [facility] TEST, SERUM 2022-01-15 14:36:00 Kenny [facility] BASIC METABOLIC PANEL 2022-01-15 14:36:00 [facility] (NA, K, CL, CO2, GLUCOSE, Medica l Branch BUN, CREATININE, CA) CBC WITH DIFF 2022-01-15 14:36:00 Kenny [facility] CONSENT/REFUSAL FOR 2022-01-15 13:28:12 Doctor Unassigned, [facility] Name [facility] XR CERVICAL SPINE 4 VW 2022-01-09 00:29:16 Gabriela [facility] XR LUMBAR SPINE 4 VW 2022-01-09 00:29:16 Gabriela [facility] XR SPINE THORACIC 3 VW 2022-01-09 00:29:16 Gabriela [facility] URINALYSIS 2022-01-08 23:50:00 Gabriela [facility] CONSENT/REFUSAL FOR 2022-01-08 22:51:08 Doctor Unassigned, No Un [facility] DIAGNOSIS AND TREATMENT Name Medical Branch GALV ONLY - VAGINAL 2021-12-12 18:37:00 Prasanna Vargas [facility] PATHOGENS BY NUCLEIC ACID Medica l Branch TESTING URINE CULTURE 2021-12-12 18:32:00 Prasanna Vargas [place] [facility] POCT TEST 2021-12-12 18:31:00 Praasnna Vargas [facility] POCT URINALYSIS W/O 2021-12-12 18:31:00 Prasanna Vargas [facility] SPECIFIC GRAVITY Medical Branch Encounters Start End Encounter Admission Attending Care Care Encounter Source Date/Time Date/Time Type Type Clinicians Facility Department ID 2021-03-14 Emergency [facility] [id number] Univers 03:14:31 ity of [facility] 2021-03-13 Emergency [facility] [id number] Univers 20:05:20 ity of [facility] 2021-03-13 Emergency [facility] [id number] Univers 12:48:28 ity of [facility] 2021-03-13 Emergency [facility] [id number] Univers 02:43:51 ity of [facility] 2021-03-13 Emergency [facility] [id number] Univers 00:27:09 ity of [facility] 2021-03-12 Emergency [facility] [id number] Univers 22:10:36 ity of [facility] 2021-03-12 Emergency [facility] [id number] Univers 20:04:05 ity of [facility] 2021-03-12 Emergency [facility] [id number] Univers 15:25:05 ity of [facility] 2021-03-12 Emergency [facility] [id number] Univers 11:43:36 ity of [facility] 2021-03-12 Emergency [facility] [id number] Univers 07:41:37 ity of [facility] 2021-03-12 Emergency [facility] [id number] Univers 05:43:47 ity of [facility] 2021-03-12 Emergency [facility] [id number] Univers 03:43:41 ity of [facility] 2021-03-12 Emergency [facility] [id number] Univers 01:31:27 ity of [facility] 2021-03-12 Emergency X [facility] ERT [id number] Univers 00:56:44 ity of [facility] 2021-03-12 Emergency [facility] [id number] Univers 00:56:31 ity of [facility] 2021-03-11 Emergency [facility] [id number] Univers 17:47:02 ity of [facility] 2021-03-11 Emergency [facility] [id number] Univers 16:27:15 ity of [facility] 2021-03-11 Emergency [facility] [id number] Univers 12:00:58 ity of [facility] 2021-03-11 Emergency [facility] [id number] Univers 10:33:59 ity of [facility] 2021-03-11 Emergency [facility] [id number] Univers 01:36:52 ity of [facility] 2021-03-10 Emergency [facility] [id number] Univers 23:35:34 ity of [facility] 2021-03-10 Emergency [facility] [id number] Univers 19:06:16 ity of [facility] 2021-03-10 Emergency [facility] [id number] Univers 12:39:47 ity of [facility] 2021-03-10 Emergency [facility] [id number] Univers 06:54:04 ity of [facility] 2021-03-09 Outpatient P [facility] CHRIS [id number] Univers 13:25:44 ity of [facility] 2021-03-09 Outpatient P [facility] [id number] Univers 13:08:01 ity of [facility] 2021-03-09 Outpatient P [facility] [id number] Univers 12:37:25 ity of [facility] 2021-03-09 Outpatient P [facility] [id number] Univers 11:51:20 ity of [facility] 2023-02-14 2023-02-[address] [facility] [id number] Willis 12:59:23 12:59:[address] [place] [address] 2023-02-06 2023-02-06 Outpatient SFA [facility] [id number] Willis 18:19:02 18:19:02 0927 F Jeffery 2023-01-30 2023-01-30 Outpatient ERICKSON_R [facility] [id number] [place] 00:00:00 00:00:00 920 [facility] 2023-01-16 2023-01-16 Transition HILARIO Odell [id number] Univers 00:00:00 00:00:00 of Care Marlys TELLO 350.1.13.10 ity of [place] 4[facility]2.7.2.686 [facility] [id number] [facility] 403 Branch 2023-01-11 2023-01-15 Inpatient X PERSON, [facility] DAVID [id number] Univers 21:06:00 16:00:00 BURGAW ity [facility] 2023-01-11 2023-01-15 [facility] Miguel Ángel Siddiqui 1.2.840.11 [id number] Univers 21:06:00 16:00:00 Encounter Mirella Vergara 350.1.13.10 [facility] 4.2.7.2.686 [place] [id number] [facility] 091 Branch 2023-01-12 2023-01-12 Travel 1.2.840.1 [id number] [id number] Univers 00:00:00 00:00:00 61811.1.1 350.1.13.10 ity of 3.104.2.7 [place].698 [place] .3.830250 084.8 Medica l .8 Branch 2023-01-11 2023-01-11 Travel 1.2.840.1 1.2.794.901 [id number] Univers 00:00:00 00:00:00 69718.1.1 350.1.13.10 ity of 3.104.2.7 [place].3.698 [place] .3.817031 084.8 Medica l .8 Branch 2022-12-28 2022-12-28 Outpatient ERICKSON_R [facility] [id number] [place] 00:00:00 00:00:00 818 [facility] 2022-12-14 2022-12-14 Outpatient [facility] [id number] Willis 18:37:13 18:37:13 0804 F Jeffery 2022-12-13 2022-12-13 Outpatient ERMARIA DE JESUS_R [facility] [id number] [place] 00:00:00 00:00:00 803 Commun i ty [facility] 2022-12-12 2022-12-12 Outpatient R ALICIA PRASANNA [facility] [id number] Univers 09:30:00 09:30:00 ity [facility] 2022-11-21 2022-11-21 Emergency X OSIRIS [facility] ERT [id number] Univers 13:08:00 16:45:00 MANJU it y of [facility] 2022-11-21 2022-11-21 Emergency Oc Bridges 1.2.840.8 [id number] Univers 13:08:00 16:45:00 Manju Newell 94728.1.1 ity of 3.104.2.7 [place] .3.206891 Medica l .8 [place] 2022-11-21 2022-11-21 Travel 1.2.840.1 1.2.642.448 [id number] Univers 00:00:00 00:00:00 71072.1.1 350.1.13.10 ity of 3.104.2.7 [place].3.698 [place] .3.771648 084.8 Medica l .8 [place] 2022-11-18 2022-11-18 Outpatient [facility] [id number] Willis 10:08:00 10:08:00 0709 F Jeffery 2022-11-15 2022-11-15 Outpatient R JEREMY GREENE [facility] [id number] Univers 09:40:00 09:40:00 JEREMY GREENE itchino [facility] 2022-11-15 2022-11-15 Orders Niru, 1.2.840.7 [id number] Univers 00:00:00 00:00:00 Only [place] 54238.1.1 ity of 3.104.2.7 [place] .3.030179 Medica l .8 [place] 2022-11-09 2022-11-[address] [facility] [id number] Willis 15:26:18 15:26:18 0630 F Jeffery 2022-11-06 2022-11-06 Outpatient R JUAN [facility] [id number] Univers 13:00:00 13:00:00 CA ity of [facility] 2022-10-29 2022-10-29 Patient Jc, 1.2.840.1 [id number] Univers 00:00:00 00:00:00 Secure Msg Jeremy 04517.1.1 ity of 3.104.2.7 [place] .3.811825 Medica l .8 [place] 2022-10-29 2022-10-29 Patient Prasanna Vargas 1.2.840.8 [id number] Univers 00:00:00 00:00:00 Secure Msg Cam 55639.1.1 i ty of 3.104.2.7 [place] .3.413951 Medica l .8 [place] 2022-10-03 2022-10-03 Letter Gurjit Lim [facility] 1..840.114 [id number] Univers 00:00:00 00:00:00 (Out) [facility] 350.1.13.10 it y of [place] 4.2.7.2.686 [place] as TALYA?BLEA [id number] Ok whit [place] [address] [place] MEDICAL OFFICE [facility]ILDING 2022-10-02 2022-10-02 Outpatient R SHARMIN [facility] [id number] Univers 10:00:00 10:00:00 , DESIREE it y of [facility] 2022-10-01 2022-10-01 Outpatient R RADHA [facility] [id number] Univers 09:40:00 09:40:00 REJI lechuga o f [facility] 2022-09-25 2022-09-25 Telephone Ponce [facility] 1.2.058.884 [id number] Univers 00:00:00 00:00:00 Sendsd Cuate [facility] 350.1.13.10 [place] of [place].2.[place] PROFESS[place] [id number] Ok dical MELISSA 059 [facility] 2022-09-21 2022-09-21 Outpatient R LEXY [facility] [id number] Univers 09:30:00 09:30:00 KASSANDRA itchino [facility] 2022-09-21 2022-09-21 [facility] 1.2.840.114 [id number] Univers 00:00:00 00:00:00 (Out) [facility] 350.1.13.10 it y of [place] 4.2.7.2.686 [place] as TALYA?BLEA [id number] Ok dicaliyah [address] 2022-09-21 2022-09-21 [facility]phone [facility] 1.2.695.952 [id number] Univers 00:00:00 00:00:00 [facility] 350.1.13.10 it y of [place] 4.2.7.2.686 [place] as TALYA?BLEA [id number] Ok dical IV[address] OFFICE [facility] 2022-09-21 2022-09-21 Telephone [facility] 1.2.950.593 [id number] Univers 00:00:00 00:00:00 [facility] 350.1.13.10 it y of [place] 4.2.7.2.686 [place] as TALYA?BLEA [id number] Ok dicaliyah [address] 2022-09-14 2022-09-14 Outpatient R LEXY [facility] [id number] Univers 09:30:00 09:30:00 KASSANDRA [facility] 2022-09-12 2022-09-12 [facility]phone [facility] 1.2.008.813 [id number] Univers 00:00:00 00:00:00 [facility] 350.1.13.10 it y of [place] 4.2.7.2.686 [place] as TALYA?BLEA [id number] Ok dicaliyah [address] OFFICE [facility] 2022-09-07 2022-09-07 Outpatient R LEXY [facility] [id number] Univers 11:30:00 11:30:00 KASSANDRA ity of [facility] 2022-09-05 2022-09-05 Emergency X LISET, [facility] ERT [id number] Univers 08:44:00 13:15:00 CYNISE ity of [facility] 2022-09-05 2022-09-05 Emergency [facility] 1.2.360.567 [id number] Univers 08:44:00 13:15:00 Cynise DIXONDAYAMI 350.1.13.10 i ty of [id number] [facility] [phone] [address] 2022-09-04 2022-09-04 Telephone Lexy [facility] [id number] Univers 00:00:00 00:00:00 Kassandra HEALTH [id number] it y of [place] [id number] [place] as TALYA?BLEA [id number] [address] OFFICE [facility] 2022-09-04 2022-09-04 Patient Serra, [facility] 1.2.840.114 [id number] Univers 00:00:00 00:00:00 Secure Msg Rad LAWSON 350.1.13.10 ity of [place] 4.2.7.2.686 [facility] [phone] [facility] 059 [facility] 2022-08-29 2022-08-29 Outpatient R SHARMIN [facility] [id number] Univers 09:00:00 09:00:00 , DESIREE it y of [facility] 2022-08-14 2022-08-14 Patient Doctor [facility] 1.2.840.114 [id number] Univers 00:00:00 00:00:00 Secure Msg [facility] HEALTH 350.1.13.10 ity of [place] 4.2.7.2.686 Martin as TALYA?BLEA [id number] [address] OFFICE [facility] 2022-07-31 2022-07-31 Emergency X RIDRAFA, [facility] ERT [id number] Univers 17:56:00 20:30:00 AGATAER it y of [facility] 2022-07-31 2022-07-31 Emergency [facility] 1.2.645.848 [id number] Univers 17:56:00 20:30:00 Manju DIXONDAYAMI 350.1.13.10 ity of [place] 4.2.7.2.686 [place] [id number] [facility] [address] 2022-07-15 2022-07-15 Outpatient R [facility] [id number] Univers 09:46:45 23:59:00 BEBA maradiagay o f [facility] 2022-07-15 2022-07-15 [facility] 1.2.840.114 [id number] Univers 09:46:45 23:59:[address] [facility] 350.1.13.10 ity of [facility] 4.2.7.2.686 [place] as TALYA?BLEA [phone] [facility] [address] [place] MEDICAL OFFICE [facility] 2022-07-15 2022-07-15 [facility] 1.2.840.114 [id number] Univers 09:46:45 23:59:[address] [facility] 350.1.13.10 ity of [place] 4.2.7.2.686 [place] as TALYA?BLEA [id number] [facility] MARY [address] MEDICAL OFFICE [facility] 2022-07-15 2022-07-15 Urgent [facility] 1.2.840 .114 [id number] Univers 09:20:00 10:29:17 Care Unknown, Attending HEALTH 350.1.13.10 ity of [place] 4.2.7.2.686 [place] as TALYA?BLEA [id number] [facility] [address] MEDICAL OFFICE BUILDING 2022-07-15 2022-07-15 Orders Doctor JORDAN 1.2.840.114 [id number] Univers 00:00:00 00:00:00 Only Unassigned, YAZMIN 350.1.13.10 ity of [place] [facility] 4.2.7.2.686 Martin as [phone] [facility] [address] 2022-06-23 2022-06-23 Outpatient R DANITA [facility] [id number] Univers 09:20:00 10:27:39 PAUL itchino [facility] 2022-06-23 2022-06-23 Urgent Paul Samayoa [facility] 1.2.840. 114 [id number] Univers 09:20:00 10:27:39 Care Unknown, Attending HEALTH 350.1.13.10 ity of [place] 4.2.7.2.686 [place] as TALYA?BLEA [id number] [address] MEDICAL OFFICE BUILDING 2022-06-23 2022-06-23 Orders Doctor JORDAN 1.2.840.114 [id number] Univers 00:00:00 00:00:00 Only Unassigned, YAZMIN 350.1.13.10 ity of [place] [facility] 4.2.7.2.686 Martin as [phone] [address] 2022-06-15 2022-06-15 Outpatient R JC [facility] [id number] Univers 09:40:00 09:40:00 JEREMY [facility] 2022-05-29 2022-05-29 Outpatient [facility] [id number] Univers 08:00:00 08:00:00 KASSANDRA [facility] 2022-05-15 2022-05-15 Outpatient R ANGELA [facility] [id number] Univers 09:20:00 09:20:00 BENNETT [facility] 2022-05-11 2022-05-11 Outpatient Farzana PUGH [facility] [id number] Univers 09:30:00 09:30:00 KASSANDRA [facility] 2022-05-05 2022-05-05 Emergency X ERROL, [facility] ERT [id number] Univers 12:26:00 16:11:00 KARON [facility] 2022-05-05 2022-05-05 Emergency [facility] 1.2.840.114 [id number] Univers 12:26:00 16:11:00 Karon LAWSON 350.1.13.10 i ty of [place] 4.2.7.2.686 [facility] [id number] [address] 2022-05-01 2022-05-01 Outpatient R PRASANNA VARGAS [facility] [id number] Univers 00:00:00 00:00:00 itchino [facility] 2022-04-26 2022-04-26 Emergency X [facility] ERT [id number] Univers 08:30:00 09:59:00 OC lechuga [facility] 2022-04-26 2022-04-26 Emergency Brid[facility] 1.2.943.141 [id number] Univers 08:30:00 09:59:00 Oc LAWSON 350.1.13.10 i ty of [place] 4.2.7.2.686 [facility] [id number] [address] 2022-04-25 2022-04-25 Emergency X [facility] ERT [id number] Univers 18:23:00 21:55:00 KENNEDY ankush [facility] 2022-04-25 2022-04-25 Emergency [facility] 1.2.019.222 [id number] Univers 18:23:00 21:55:00 Kennedy LAWSON 350.1.13.10 i ty [facility] 4.2.7.2.686 [facility] [phone] [address] 2022-04-19 2022-04-19 Outpatient R JC [facility] [id number] Univers 10:00:00 10:00:00 JEREMY maradiagachino [facility] 2022-04-12 2022-04-12 Telephone [facility] 1.2.204.631 [id number] Univers 00:00:00 00:00:00 [facility] 350.1.13.10 it y of [place] 4.2.7.2.686 [place] as TALYA?BLEA [id number] Ok whit [address] MEDICAL OFFICE BUILDING 2022-04-11 2022-04-11 Telephone Patti [facility] 1.2.840.114 [id number] Univers 00:00:00 00:00:00 Darrion Gene HEALTH 350.1.13.10 ity of [place] 4.2.7.2.686 [place] as TALYA?BLEA [id number] Ok whit [address] OFFICE [facility] 2022-04-10 2022-04-10 Telephone [facility]UN[facility] 1.2.428.698 [id number] Univers 00:00:00 00:00:00 [employer] 350.1.13.10 it y of [place] 4.2.7.2.686 [place] as TALYA?BLEA [phone] Ok whit [address] OFFICE [facility] 2022-04-09 2022-04-09 Office [facility]UN[facility] 1.2.840.114 [id number] Univers 09:30:00 09:30:00 Visit Kassandra [employer] 350.1.13.10 it y of [facility] 4.2.7.2.686 [place] as TALYA?BLEA [id number] [address] OFFICE [facility] 2022-04-09 2022-04-09 Out[facility] [id number] Univers 09:30:00 09:21:44 KASSANDRA lechuga [facility] 2022-04-07 2022-04-07 Emergency X [facility] ERT [id number] Univers 13:41:00 17:49:00 OLAMIDE lechuga [facility] 2022-04-07 2022-04-07 Emergency [facility] 1.2.051.137 [id number] Univers 13:41:00 17:49:00 Olamide LAWSON 350.1.13.10 ity of [place] 4.2.7.2.686 [place] [facility] [phone] [facility] [address] [place] 2022-04-07 2022-04-07 Patient Doctor JORDAN 1.2.840.114 [id number] Univers 00:00:00 00:00:00 Secure Msg Unassigned, YAZMIN 350.1.13.10 ity of [place] [facility] 4.2.7.2.686 Martin as [id number] [facility] [address] [place] 2022-04-04 2022-04-04 Telephone [facility] 1.2.959.594 [id number] Univers 00:00:00 00:00:00 [facility] 350.1.13.10 it y of [place] 4.2.7.2.686 [place] as TALYA?BLEA [id number] [address] OFFICE [facility] 2022-04-02 2022-04-02 Outpatient Farzana PUGH [facility] [id number] Univers 10:30:00 10:30:00 KASSANDRA lechuga [facility] 2022-03-28 2022-03-28 Patient Doctor [facility] 1.2.840.114 [id number] Univers 00:00:00 00:00:00 Secure Msg Unassigned, [facility] 350.1.13.10 ity of [place] 4.2.7.2.686 Martin as TALYA?BLEA [id number] [address] 2022-03-24 2022-03-24 Emergency X FELIZ, [facility] ERT [id number] Univers 07:35:00 13:11:00 KELLIE ankush [facility] 2022-03-24 2022-03-24 Emergency [facility]UN[facility] 1.2.214.263 [id number] Univers 07:35:00 13:11:00 Kellie LAWSON 350.1.13.10 ity of [facility] 4.2.7.2.686 [place] [facility] [id number] [address] 2022-03-23 2022-03-23 Outpatient Farzana PUGH [facility] [id number] Univers 10:30:00 10:30:00 KASSANDRA lechuga [facility] 2022-03-23 2022-03-23 Telephone [facility] 1.2.840.114 [id number] Univers 00:00:00 00:00:00 [employer] 350.1.13.10 ity of [facility] 4.2.7.2.686 [place] as TALYA?BLEA [id number] [address] 2022-03-22 2022-03-22 Telephone P[facility]UNION [facility] 1.2.840.114 [id number] Univers 00:00:00 00:00:00 [employer] 350.1.13.10 ity of [place] 4.2.7.2.686 [place] as TALYA?BLEA [id number] [address] 2022-03-22 2022-03-22 Refill P[facility]UNION [facility] 1.2.840.114 [id number] Univers 00:00:00 00:00:00 [facility] 350.1.13.10 ity of [place] 4.2.7.2.686 [place] as TALYA?BLEA [id number] [address] 2022-03-21 2022-03-21 Dario WyattUNION COUNTY GENERAL [facility] 1.2.840.114 [id number] Univers 00:00:00 00:00:00 [facility] 350.1.13.10 ity of [place] 4.2.7.2.686 [place] as TALYA?BLEA [id number] [address] 2022-03-15 2022-03-15 Outpatient R RADHA [facility] [id number] Univers 14:00:00 14:36:19 [facility] ankush o f [facility] 2022-03-15 2022-03-15 Office RadhaUNION [facility] 1.2.840.114 [id number] Univers 14:00:00 14:36:19 Visit Arleyraheel [place] 350.1.13.10 ity of [place] 4.2.7.2.686 [place] [facility] [phone] Ok whit [facility] 059 [facility] 2022-03-15 2022-03-15 Emergency X DARRIAN [facility] ERT [id number] Univers 08:40:00 10:47:00 LYDIA ity of [facility] 2022-03-15 2022-03-15 Emergency DarrianUNION COUNTY [facility] 1.2.840.114 [id number] Univers 08:40:00 10:47:00 Lydia [place] 350.1.13.10 i ty of [facility] 4.2.7.2.686 [place] [facility] [id number] [address] 2022-03-14 2022-03-14 Outpatient PRASANNA LOOMIS [facility] [id number] Univers 10:30:00 10:30:00 ity of [facility] 2022-03-11 2022-03-11 Emergency X FELICE, [facility] ERT [id number] Univers 09:22:00 12:15:00 SHINTA ity [facility] 2022-03-11 2022-03-11 Emergency FeliceUNION COUNTY [facility] 1.2.840.114 [id number] Univers 09:22:00 12:15:00 Shinta [place] 350.1.13.10 i ty of [facility] 4.2.7.2.686 [place] [facility] [id number] [address] 2022-03-06 2022-03-06 Outpatient R LEXY [facility] [id number] Univers 08:30:00 08:30:00 KASSANDRA [facility] 2022-03-02 2022-03-02 Telephone Patti [facility] 1.2.840.114 [id number] Univers 00:00:00 00:00:00 [facility] 350.1.13.10 ity of [place] 4.2.7.2.686 [place] as TALYA?BLEA [phone] [address] MEDICAL OFFICE [facility] 2022-02-28 2022-02-28 Patient Doctor [facility] 1.2.840.114 [id number] Univers 00:00:00 00:00:00 Secure Msg Unassigned, HEALTH 350.1.13.10 ity of [place] 4.2.7.2.686 Martin as TALYA?BLEA [id number] [address] MEDICAL OFFICE [facility] 2022-02-27 2022-02-27 Outpatient R LEXY [facility] [id number] Univers 09:30:00 09:49:42 KASSANDRA itchino [facility] 2022-02-27 2022-02-27 Office [facility]UN[facility] 1.2.840.114 [id number] Univers 09:30:00 09:49:42 Visit [facility] 350.1.13.10 it y of [place] 4.2.7.2.686 [place] as TALYA?BLEA [id number] [address] MEDICAL OFFICE [facility] 2022-02-27 2022-02-27 Office VíctorkassandraUNION COUNTY GENERAL HOSPITAL 1.2.840.114 [id number] Univers 08:00:00 09:12:17 Visit Ca [facility] 350.1.13.10 it y of [place] 4.2.7.2.686 [place] as TALYA?BLEA [id number] [address] 2022-02-26 2022-02-26 Outpatient R LEXY [facility] [id number] Univers 11:30:00 11:30:00 KASSANDRA lechuga [facility] 2022-02-21 2022-02-21 Emergency [facility]ION [facility] ERT [id number] Univers 01:20:00 03:44:00 MAGGIE lechuga [facility] 2022-02-21 2022-02-21 Emergency AlfonsoUNION COUNTY GENERAL [facility] 1.2.840.114 [id number] Univers 01:20:00 03:44:00 Maggie [facility] 350.1.13.10 ity of [place] 4.2.7.2.686 [place] [facility] [phone] [address] 2022-02-19 2022-02-19 Patient RobbUNION COUNTY [facility] 1.2.840.114 [id number] Univers 00:00:00 00:00:00 Secure Msg Kendal Chavez HEALTH 350.1.13.10 ity of [place] 4.2.7.2.686 Martin as TALYA?BLEA [id number] [address] OFFICE [facility] 2022-02-19 2022-02-19 Patient Zam[facility]ioUNION COUNTY [facility] 1.2.840.114 [id number] Univers 00:00:00 00:00:00 Secure Msg Kendal Chavez HEALTH 350.1.13.10 ity of [place] 4.2.7.2.686 Martin as TALYA?BLEA [phone] [address] OFFICE [facility] 2022-02-19 2022-02-19 Patient Annie [facility] 1.2.970.984 [id number] Univers 00:00:00 00:00:00 Secure Msg Santiago SAM 350.1.13.10 ity of [facility] 4.2.7.2.[place] [phone] [facility] [address] 2022-02-19 2022-02-19 Patient Martin [facility] 1.2.840.114 [id number] Univers 00:00:00 00:00:00 Secure g Ross R SHEET LAYER 350.1.13.10 ity [facility] 4.2.7.2.686 Martin as MATERNAL [id number] [facility] ical & CHILD [address] [place] [address] 2022 2022 Emergency X [facility]ION [facility] ERT [id number] Univers 11:58:00 15:13:00 MAGGIE lechuga [facility] 2022 2022 Emergency AlfonsoUNION COUNTY [facility] 1.2.840.114 [id number] Univers 11:58:00 15:13:00 Maggie Farmer [place] 350.1.13.10 ity [facility] 4.2.7.2.686 [place] [facility] [id number] [facility] [address] [place] 2022-02-09 2022-02-09 Outpatient R BRANDON [facility] [id number] Univers 09:00:00 09:00:00 CRICKET davis [facility] 2022-02-06 2022-02-06 Outpatient R JUAN [facility] [id number] Univers 10:00:00 10:00:00 CA lechuga [facility] 2022-02-05 2022-02-05 Nurse Nurse, Filippo [facility] 1.2.840.114 [id number] Univers 09:45:00 10:05:00 Visit [facility] 350.1.13.10 ity [facility] 4.2.7.2.686 [place] as TALYA?BLEA [phone] Ok whit [place] [address] [place] [address] MEDICAL OFFICE BUILDING 2022-02-05 2022-02-05 Outpatient R OLIVER [facility] [id number] Univers 09:20:00 09:20:00 FLACO davis [facility] 2022-01-26 2022-01-26 Prasanna Gimenez [facility] 1.2.068.791 [id number] Univers 00:00:00 00:00:00 Management Jm LAWSON 350.1.13.10 ity [facility] 4.2.7.2.686 [place] [facility] [phone] Ok dical [address] 2022-01-22 2022-01-22 Outpatient R JUAN [facility] [id number] Univers 11:00:00 11:00:00 CA ity of [facility] 2022-01-19 2022-01-19 Patient Doctor JORDAN 1.2.840.114 [id number] Univers 00:00:00 00:00:00 Secure Msg Unassigned, YAZMIN 350.1.13.10 ity of [facility] 4.2.7.2.[address] [facility] [id number] [facility] [address] [place] 2022-01-18 2022-01-18 Emergency X GARDENIA [facility] ERT [id number] Univers 05:17:00 10:25:00 [facility] 2022-[facility]-18 2022-01-18 Emergency Haroon Kennedyian W TRAUMA 1.2.840.11 4 [id number] Univers 05:17:00 10:25:00 Rosendo Levy [facility] 350.1.13.10 ity [facility].2.7.2.686 [facility] s [id number] [facility] [address] [place] 2022-01-15 2022-01-15 Emergency X KENNY [facility] ERT [id number] Univers 08:34:00 10:49:00 MAURA lechuga [facility] 2022-01-15 2022-01-15 Emergency Larry Perez R [facility] 1.2.840.1 14 [id number] Univers 08:34:00 10:49:00 Maura Samayoa 350.1.13.10 ity [facility] 4.2.7.2.686 [place] [id number] [facility] [address] 2022-01-08 2022-01-08 Emergency X GABRIELA, [facility] ERT [id number] Univers 18:04:00 20:09:00 HUMBERTO itchino [facility] 2022-01-08 2022-01-08 Emergency Gabriela, [facility] 1.2.840.114 [id number] Univers 18:04:00 20:09:00 Humberto LAWSON 350.1.13.10 i ty of [place] 4.2.7.2.686 [facility] [id number] [place] [address] [place] 2021-12-12 2021-12-12 Outpatient R DEYVI [facility] [id number] Univers 13:30:00 13:40:21 TETO [facility] 2021-12-12 2021-12-12 Office Prasanna Vargas [facility] 1..840.114 [id number] Univers 13:30:00 13:40:21 Visit Teto Carnes 350.1.13.10 ity of [place] 4.2.7.2.686 [facility] [id number] Ok dic[address] 2021-12-12 2021-12-12 Outpatient R DEYVI [facility] [id number] Univers 13:30:00 13:40:[address] [place] 2021-12-12 2021-12-12 Outpatient R DEYVI [facility] [id number] Univers 13:30:00 13:40:21 [facility] 2021-12-11 2021-12-11 Outpatient R ANNIE, [facility] [id number] Univers 16:15:00 16:15:00 SANTIAGO [facility] 2021-12-05 2021-12-05 Outpatient R LYSSA, [facility] [id number] Univers 14:15:00 14:15:00 ROMULO [facility] 2021-11-28 2021-11-28 Emergency X NORTON, [facility] ERT [id number] Univers 08:49:00 11:02:00 KARON [facility] 2021-11-28 2021-11-28 Emergency Norton, [facility] 1..840.114 [id number] Univers 08:49:00 11:02:00 Karon LAWSON 350.1.13.10 i ty of [place] 4.2.7.2.686 [facility] [id number] [address] 2021-11-28 2021-11-28 Patient Brandon, [facility] 1.2.560.540 [id number] Univers 00:00:00 00:00:00 Secure Msg Cricket Lopez SHEET LAYER 350.1.13.10 ity of [facility] 4.2.7.2.686 Martin as MATERNAL [id number] [facility] & CHILD [address] [place] [address] 2021-11-24 2021-11-24 Emergency X DEV, K [facility] ERT [id number] Univers 18:14:00 21:04:00 ity of [facility] 2021-11-24 2021-11-24 Emergency Dev, [facility] 1.2.840.114 [id number] Univers 18:14:00 21:04:00 Sharlene [place] 350.1.13.10 i ty [facility] 4.2.7.2.686 [facility] [phone] [address] 2021-11-24 2021-11-24 Telephone Addisongracie, [facility] 1.2.840.114 [id number] Univers 00:00:00 00:00:00 Cricket Lopez SHE[employer] LAYER 350.1.13.10 ity of [facility] 4.2.7.2.686 Martin as MATERNAL [id number] [facility] & CHILD [address] [place] [address] 2021-11-20 2021-11-20 Patient Robb [facility] 1.2.840.114 [id number] Univers 00:00:00 00:00:00 Secure Msg Critical access hospital 350.1.13.10 ity [facility] 4.2.7.2.686 [place] as TALYA?BLEA [id number] Ok whit [address] MEDICAL OFFICE BUILDING 2021-11-19 2021-11-19 Letter JORDAN Santacruz 1.2.840.114 [id number] Univers 00:00:00 00:00:00 (Out) Leslie ARCE 350.1.13.10 it y of [facility] 4.2.7.2.686 Martin as [id number] [address] 2021-11-18 2021-11-18 [facility] [id number] Univers 10:41:40 23:59:00 FLACO lechuga o f [facility] 2021-11-18 2021-11-18 [facility] 1.2.170.398 [id number] Univers 10:41:40 23:59:00 Encounter [facility] 350.1.13.10 ity of [place] 4.2.7.2.686 [place] as TALYA?BLEA [phone] Ok dicaliyah [place] [address] MEDICAL OFFICE [facility] 2021-11-18 2021-11-18 Urgent [facility] 1.2.840.114 [id number] Univers 10:20:00 10:53:20 Care [facility] 350.1.13.10 i ty of [place] 4.2.7.2.686 [place] as TALYA?BLEA [id number] Ok dicaliyah [place] [address] [facility] OFFICE [facility] 2021-11-09 2021-11-09 [facility] [id number] Univers 10:30:00 10:30:00 DESIREE lechuga [facility] 2021-10-25 2021-10-25 Urgent Mitchell Willie [facility] ..840.114 9 [id number] Univers 13:20:00 13:20:00 Care Oliver, [facility] 350.1.13.10 ity of [place] 4.2.7.2.686 Martin as TALYA?BLEA [id number] Ok whit [facility] [address] [facility] OFFICE [facility] 2021-10-25 2021-10-25 Outpatient [facility] [id number] Univers 13:20:00 12:47:59 WILLIE lechgua [facility] 2021-10-25 2021-10-25 [facility] 1.2.840.114 [id number] Univers 00:00:00 00:00:00 Secure Msg [employer] 350.1.13.10 ity of [place] [id number] Martin as TALYA?BLEA [phone] Ok dical MIKI 044 [facility] OFFICE [facility] 2021-10-25 2021-10-25 Telephone [place], [facility] [id number] Univers 00:00:00 00:00:00 Ca HEALTH [id number] it y of [place] [id number] Martin as TALYA?BLEA [phone] Ok whit [place] 044 [facility] OFFICE [facility] 2021-10-25 2021-10-25 Telephone Provider, [facility] [id number] Univers 00:00:00 00:00:00 Ang Db HEALTH [id number] it y of Urgent Care [place] [id number] [place] TALYA?BLEA [phone] [address] 2021-10-25 2021-10-25 Telephone Nurse, [facility] [id number] Univers 00:00:00 00:00:00 Db Urgent HEALTH [id number] ity of Care [place] [id number] [place] as TALYA?BLEA [phone] [address] 2021-10-24 2021-10-24 Outpatient Farzana OMALLEY [facility] [id number] Univers 10:15:00 10:15:00 ROMULO [facility] 2021-10-24 2021-10-24 Outpatient Farzana OMALLEY [facility] [id number] Univers 10:15:00 10:15:00 ROMULO [facility] 2021-10-11 2021-10-11 Outpatient Farzana OMALLEY [facility] [id number] Univers 09:30:00 09:30:00 ROMULO [facility] 2021-10-10 2021-10-10 Outpatient Farzana VARGAS PRASANNA [facility] [id number] Univers 13:30[facility]-10-10 Outpatient Farzana VARGAS PRASANNA [facility] [id number] Univers [facility] 2021-10-10 2021-10-10 Outpatient PRASANNA LOOMIS [facility] [id number] Univers 13:30:00 13:30:00 ity [facility] 2021-10-10 2021-10-10 Outpatient PRASANNA LOOMIS [facility] [id number] Univers 13:30:00 13:30:00 ity of [facility] 2021-10-10 2021-10-10 Outpatient PRASANNA LOOMIS [facility] [id number] Univers 13:30:00 13:30:00 ity of [facility] 2021-10-10 2021-10-10 [facility] [id number] Univers 13:30:00 13:30:00 ity of [facility] 2021-10-10 2021-10-10 [facility] [id number] Univers 13:30:00 13:30:00 ity [facility] 2021-10-05 2021-10-05 Patient Robb [facility] 1.2.840.114 [id number] Univers 00:00:00 00:00:00 Secure Msg Kendal Chavez HEALTH 350.1.13.10 ity of [place] 4.2.7.2.686 [place] as TALYA?BLEA [phone] [address] MEDICAL OFFICE [facility] 2021-10-05 2021-10-05 Patient Robb [facility] 1.2.840.114 [id number] Univers 00:00:00 00:00:00 Secure Msg Kendal Chavez HEALTH 350.1.13.10 ity of [place] 4.2.7.2.686 [place] as TALYA?BLEA [phone] [address] MEDICAL OFFICE [facility] 2021-10-04 2021-10-04 Pre Visit HILARIO Rodriguez 1.2.360.813 [id number] Univers 00:00:00 00:00:00 Outreach Melia TELLO 350.1.13.10 it[place] of [place] [phone] [address] 2021-09-28 2021-09-28 Office Onur [facility] 1.2.840.114 [id number] Univers 13:30:00 13:45:00 Visit Desiree WATERSY 350.1.13.10 ity [facility] [place].2.[place] [phone] [address] 2021-09-28 2021-09-28 Outpatient R ONUR [facility] [id number] Univers 13:30:00 13:30:00 DESIREE [facility] 2021-09-28 2021-09-28 [facility] [id number] Univers 13:30:00 13:30:00 DESIREE [facility] 2021-09-28 2021-09-28 [facility] 1.2.840.114 [id number] Univers 00:00:00 00:00:00 Secure Msg Desiree [facility]ERS[facility].13.10 [facility] 4.[place].7.2.686 [place] [phone] [address] 2021-09-27 2021-09-27 Outpatient R DEYVI, [facility] [id number] Univers 14:00:00 14:00:00 TETO [facility] 2021-09-27 2021-09-27 [facility] [id number] Univers 09:30:00 09:30:00 [facility] 2021-09-27 2021-09-27 [facility] [id number] Univers 09:30:00 09:30:00 [facility] 2021-09-27 2021-09-27 [facility] [id number] Univers 09:30:00 09:30:00 [facility] 2021-09-26 2021-09-26 Outpatient R AKINLYNSEY, [facility] [id number] Univers 10:45:00 10:45:00 CRICKET ity o [facility] 2021-09-26 2021-09-26 Outpatient R AKINSIPE, [facility] [id number] Univers 10:45:00 10:45:00 CRICKET ity o f [facility] 2021-09-26 2021-09-26 Patient Juan [facility] 1.2.840.114 [id number] Univers 00:00:00 00:00:00 Secure [facility] 350.1.13.10 ity of [place] 4.2.7.2.686 [place] as TALYA?BLEA [phone] [facility] 044 [facility] OFFICE [facility] 2021-09-26 2021-09-26 Patient Juan [facility] 1.2.840.114 [id number] Univers 00:00:00 00:00:00 [facility] 350.1.13.10 ity of [place] 4.2.7.2.686 [place] TALYA?BLEA [phone] [address] 2021-09-25 2021-09-25 Urgent OliverFlaco [facility] 1.2.840. 114 [id number] Univers 10:20:00 11:10:42 [facility] 350.1.13.10 [facility] 4.2.7.2.686 [place] TALYA?BLEA [phone] [address] 2021-09-25 2021-09-25 Outpatient R OLIVER [facility] [id number] Univers 10:20:00 11:10:42 FLACO lechuga o f [facility] 2021-09-25 2021-09-25 Outpatient R OLIVER [facility] [id number] Univers 10:20:00 10:20:00 FLACO lechuga o f [facility] 2021-09-25 2021-09-25 Outpatient R PRASANNA VARGAS [facility] [id number] Univers 10:00:00 10:00:00 ity of [facility] 2021-09-25 2021-09-25 [facility]phone [facility] 1.2.840.114 [id number] Univers 00:00:00 00:00:00 [facility] 350.1.13.10 i ty of [place] 4.2.7.2.686 [place] as TALYA?BLEA [phone] [address] OFFICE [facility] 2021-09-25 2021-09-25 Patient Prasanna Vargas [facility] 1.2.339.990 [id number] Univers 00:00:00 00:00:00 Secure Msg Cam [facility] 350.1.13.10 ity of [place].2.7.2.[place] [phone] [facility] 134 [facility] 2021-09-25 2021-09-25 Telephone Brandon, [facility] 1.2.840.114 [id number] Univers 00:00:00 00:00:00 Cricket Lopez SHEET LAYER 350.1.13.10 ity of [facility] 4.2.7.2.686 [place] as MATERNAL [phone] Med ical & CHILD 107 [facility] [place] 2021-09-25 2021-09-25 Telephone Onur, [facility] 1.2.162.667 [id number] Univers 00:00:00 00:00:00 Desiree SAM 350.1.13.10 ity of [facility] 4.2.7.2.686 [place] [phone] [address] 2021-09-15 2021-09-15 Patient Robb [facility] 1.2.840.114 [id number] Univers 00:00:00 00:00:00 Secure Msg Kendal Munir HEALTH 350.1.13.10 ity of [place] 4.2.7.2.686 [place] as TALYA?BLEA [phone] [facility] 044 [facility] OFFICE [facility] 2021-09-15 2021-09-15 Patient Robb [facility] 1.2.840.114 [id number] Univers 00:00:00 00:00:00 Secure Msg Kendal M HEALTH 350.1.13.10 ity of [place] 4.2.7.2.686 [place] as TALYA?BLEA [phone] [facility] 044 [facility] OFFICE [facility] 2021-09-15 2021-09-15 Patient Robb [facility] 1.2.840.114 [id number] Univers 00:00:00 00:00:00 Secure Msg Kendal M HEALTH 350.1.13.10 ity of [place] 4.2.7.2.686 [place] as TALYA?BLEA [phone] Ok alessandra[address] MEDICAL OFFICE [facility] 2021-09-14 2021-09-14 Patient Juan [facility] 1.2.840.114 [id number] Univers 00:00:00 00:00:00 Secure Msg Ca HEALTH 350.1.13.10 ity of [place] 4.2.7.2.686 [place] as TALYA?BLEA [phone] [address] MEDICAL OFFICE [facility] 2021-09-14 2021-09-14 Patient Doctor [facility] 1.2.840.114 [id number] Univers 00:00:00 00:00:00 Secure Msg Unassigned, HEALTH 350.1.13.10 ity of [place] 4.2.7.2.686 [place] as TALYA?BLEA [phone] [address] OFFICE [facility] 2021-09-12 2021-09-12 Outpatient Farzana MIXON [facility] [id number] Univers 10:30:00 10:30:00 DESIREE lechuga [facility] 2021-09-12 2021-09-12 Outpatient Farzana MIXON [facility] [id number] Univers 10:30:00 10:30:00 DESIREE lechuga [facility] 2021-09-12 2021-09-12 Patient Meet [facility] 1.2.840.114 [id number] Univers 00:00:00 00:00:00 Secure Msg Daniel CRAIG 350.1.13.10 ity of [place].2.[place] [phone] [facility] [place] [address] [place] [facility] 2021-09-12 2021-09-12 Orders Doctor JORDAN 1.2.840.114 [id number] Univers 00:00:00 00:00:00 Only Unassigned, YAZMIN 350.1.13.10 ity of [place] [facility] 4.2.7.2.686 [place] as [phone] [facility] [address] 2021-09-12 2021-09-12 Patient Juan [facility] 1.2.840.114 [id number] Univers 00:00:00 00:00:00 Secure Msg Ca HEALTH 350.1.13.10 ity of [place] 4.2.7.2.686 [place] TALYA?BLEA [phone] [address] MEDICAL OFFICE BUILDING 2021-09-05 2021-09-05 Patient Juan WVDAISY 1.2.840.114 [id number] Univers 00:00:00 00:00:00 Secure Msg Ca HEALTH 350.1.13.10 ity of [place] 4.2.7.2.686 [place] TALYA?BLEA [phone] [address] MEDICAL OFFICE BUILDING 2021-09-05 2021-09-05 Patient Doctor JORDAN 1.2.840.114 [id number] Univers 00:00:00 00:00:00 Secure Msg Unassigned, YAZMIN 350.1.13.10 ity of [place] [facility] 4.2.7.2.686 [place] as [phone] [address] 2021-09-05 2021-09-05 Patient Doctor JORDAN 1.2.840.114 [id number] Univers 00:00:00 00:00:00 Secure Msg Unassigned, YAZMIN 350.1.13.10 ity of [place] [facility] 4.2.7.2.686 [place] as [phone] [address] 2021-09-04 2021-09-04 Patient Víctorkassandra [facility] 1.2.840.114 [id number] Univers 00:00:00 00:00:00 Secure Msg Ca HEALTH 350.1.13.10 ity of [place] 4.2.7.2.686 [place] as TALYA?BLEA [phone] [address] MEDICAL OFFICE BUILDING 2021-08-28 2021-08-28 Patient Melvin WVDAISY 1.2.840.114 [id number] Univers 00:00:00 00:00:00 Secure Msg Shancy K MULTISPEC 350.1.13.10 ity of [place] [phone] [address] [facility] 2021-08-25 2021-08-25 Telephone Aditi [facility] 1.2.840.114 [id number] Univers 00:00:00 00:00:00 Dania L HEALTH 350.1.13.10 it y of [place] 4.2.7.2.686 [place] TALYA?BLEA [phone] Ok whit [place] [address] MEDICAL OFFICE [facility] 2021-08-25 2021-08-25 Patient Juan [facility] 1.2.840.114 [id number] Univers 00:00:00 00:00:00 Secure Msg Ca HEALTH 350.1.13.10 ity of [place] 4.2.7.2.686 [place] TALYA?BLEA [phone] Ok whit [place] 044 [facility] OFFICE [facility] 2021-08-24 2021-08-24 Telephone Juan [facility] 1.2.295.192 [id number] Univers 00:00:00 00:00:00 Ca HEALTH 350.1.13.10 it y of [place] 4.2.7.2.686 [place] as TALYA?BLEA [phone] Ok whit [place] 044 [facility] OFFICE [facility] 2021-08-24 2021-08-24 Patient Juan [facility] 1.2.840.114 [id number] Univers 00:00:00 00:00:00 Secure Msg Ca HEALTH 350.1.13.10 ity of [place] 4.2.7.2.686 [place] as TALYA?BLEA [phone] Ok whit [place] 044 [facility] OFFICE [facility] 2021-08-23 2021-08-23 Patient Juan [facility] 1.2.840.114 [id number] Univers 00:00:00 00:00:00 Secure Msg Ca HEALTH 350.1.13.10 ity of [place] 4.2.7.2.686 [place] as TALYA?BLEA [phone] Ok whit [place] 044 [facility] OFFICE [facility] 2021-08-23 2021-08-23 Telephone Juan [facility] 1.2.431.315 [id number] Univers 00:00:00 00:00:00 Ca HEALTH 350.1.13.10 it y of [place] 4.2.7.2.686 [place] as TALYA?BLEA [phone] Me dical KNEY 044 [facility] OFFICE [facility] 2021-08-22 2021-08-22 [facility] 1.2.851.379 [id number] Univers 00:00:00 00:00:00 Ca HEALTH 350.1.13.10 it y of [place] 4.2.7.2.686 [place] as TALYA?BLEA [phone] Me dicaliyah KNEY 044 [facility] OFFICE [facility] 2021-08-22 2021-08-22 Patient [facility] 1.2.840.114 [id number] Univers 00:00:00 00:00:00 Secure Msg Hallie HEALTH 350.1.13.10 ity [facility] 4.2.7.2.686 [place] TALYA?BLEA [phone] Ok dicaliyah [place] [address] [place] [address] OFFICE [facility] 2021-08-18 2021-08-18 Telephone [facility] 1.2.535.912 [id number] Univers 00:00:00 00:00:00 Ca HEALTH 350.1.13.10 it y [facility] 4.2.7.2.686 [place] TALYA?BLEA [phone] Ok dicaliyah MINOREY [address] [place] [address] 2021-08-17 2021-08-17 Outpatient Farzana MIXON [facility] [id number] Univers 09:00:00 09:00:00 [facility]-17 2021-08-17 Outpatient Farzana MIXON [facility] [id number] Univers 09:00:00 09:00:00 DESIREE ity [facility] 2021-08-17 2021-08-17 Patient Prasanna Vargas [facility] 1.2.654.041 [id number] Univers 00:00:00 00:00:00 Secure Msg Cam [facility] 350.1.13.10 ity of [place]2.7.2.[place] [phone] Me whit TORRES 134 [facility] 2021-08-17 2021-08-17 [facility] 1.2.840.114 [id number] Univers 00:00:00 00:00:00 Secure Msg Ca HEALTH 350.1.13.10 ity of [place] 4.2.7.2.686 [place] as TALYA?BLEA [phone] Ok dical MIKI [address] [place] [address] MEDICAL OFFICE [facility] 2021-08-17 2021-08-17 Patient Juan [facility] 1.2.840.114 [id number] Univers 00:00:00 00:00:00 Secure Msg Ca HEALTH 350.1.13.10 ity of [place] 4.2.7.2.686 [place] as TALYA?BLEA [phone] Me dical IVÁNEY [address] [place] [address] OFFICE [facility] 2021-08-16 2021-08-16 Patient Juan [facility] 1.2.840.114 [id number] Univers 00:00:00 00:00:00 Secure Msg Ca HEALTH 350.1.13.10 ity of [place] 4.2.7.2.686 [place] as TALYA?BLEA [phone] Ok alessandraal MIKI [address] [place] [address] OFFICE [facility] 2021-08-16 2021-08-16 Patient Doctor [facility] 1.2.840.114 [id number] Univers 00:00:00 00:00:00 Secure Msg Unassigned, HEALTH 350.1.13.10 ity of [place] 4.2.7.2.686 [place] as TALYA?BLEA [phone] Ok dical MIKI [address] [place] [address] OFFICE [facility] 2021-08-16 2021-08-16 Patient Juan [facility] 1.2.840.114 [id number] Univers 00:00:00 00:00:00 Secure Msg Ca HEALTH 350.1.13.10 ity of [place] 4.2.7.2.686 [place] as TALYA?BLEA [phone] Ok dical MIKI [address] [place] [address] OFFICE [facility] 2021-08-16 2021-08-16 Patient Juan [facility] 1.2.840.114 [id number] Univers 00:00:00 00:00:00 Secure Msg Ca HEALTH 350.1.13.10 ity of [place] 4.2.7.2.686 [place] as TALYA?BLEA [phone] Me dical KNEY 044 [facility] OFFICE [facility] 2021-08-15 2021-08-15 Office [facility] 1.2.840.114 [id number] Univers 15:30:00 16:16:42 Visit [facility] 350.1.13.10 it y of [place] 4.2.7.2.686 [place] as TALYA?BLEA [phone] Ok whit [place] 198 [facility] OFFICE [facility] 2021-08-15 2021-08-15 Outpatient Farzana [facility] [id number] Univers 15:30:00 16:16:42 [facility] 2021-08-15 2021-08-15 Outpatient Farzana [facility] [id number] Univers 15:30:00 15:30:00 [facility] 2021-08-15 2021-08-15 Outpatient Farzana [facility] [id number] Univers 15:30:00 15:30:00 [facility] 2021-08-15 2021-08-15 Outpatient Farzana [facility] [id number] Univers 15:30:00 15:30:00 [facility] 2021-08-15 2021-08-15 Emergency [facility] [id number] Univers 09:27:00 12:26:00 [facility] 2021-08-15 2021-08-15 [facility] 1.2.334.700 [id number] Univers 09:27:00 12:26:00 Maura LAWSON 350.1.13.10 ity [facility] 4.2.7.2.686 [facility] [phone] [facility] [address] [place] 2021-08-15 2021-08-15 Emergency [facility] [id number] Univers 09:27:00 12:26:00 [facility] 2021-08-15 2021-08-15 Patient Doctor JORDAN 1.2.840.114 [id number] Univers 00:00:00 00:00:00 Secure Msg Unassigned, YAZMIN 350.1.13.10 ity of [facility] 4.2.7.2.686 [place] as [phone] [address] 2021-08-14 2021-08-14 Outpatient R JUAN [facility] [id number] Univers 13:25:00 23:59:00 CA lechuga [facility] 2021-08-14 2021-08-14 Outpatient R JUAN [facility] [id number] Univers 13:25:00 23:59:00 CA lechuga [facility] 2021-08-14 2021-08-14 Outpatient R JUAN [facility] [id number] Univers 13:25:00 13:25:00 CA lechuga [facility] 2021-08-14 2021-08-14 Outpatient R JUAN [facility] [id number] Univers 12:19:07 13:24:00 CA lechuga [facility] 2021-08-14 2021-08-14 Outpatient R JUAN [facility] [id number] Univers 12:19:07 13:24:00 CA lechuga [facility] 2021-08-14 2021-08-14 Grievance Coordinator Lab, Ang [facility] 1.2.840.1 [id number] Univers 12:30:00 13:01:24 Visit Ca Martinez [facility] 350.1.13.10 ity of [place] 4.2.7.2.686 [place] as TALYA?BLEA [phone] [address] OFFICE [facility] 2021-08-14 2021-08-14 Grievance Coordinator Lab, Ang [facility] 1.2.840.1 [id number] Univers 12:30:00 12:45:00 Visit Ca Martinez 350.1.13.10 [facility] 4.2.7.2.686 [place] as TALYA?BLEA [phone] [address] OFFICE [facility] 2021-08-14 2021-08-14 Office Juan [facility] 1.2.840.114 [id number] Univers 11:30:00 12:31:12 Visit Ca [employer] 350.1.13.10 it y of [place] 4.2.7.2.686 [place] as TALYA?BLEA [phone] Me dical MIKI [address] [place] MEDICAL OFFICE [facility] 2021-08-14 2021-08-14 [facility] [id number] Univers 11:30:00 12:31:12 CA lechuga [facility] 2021-08-14 2021-08-14 [facility] 1.2.840.114 [id number] Univers 00:00:00 00:00:00 Secure Msg Ca HEALTH 350.1.13.10 ity of [place] 4.2.7.2.686 [place] as TALYA?BLEA [phone] Me dical MIKI 044 [facility] OFFICE [facility] 2021-08-14 2021-08-14 [facility] 1.2.840.114 [id number] Univers 00:00:00 00:00:00 Secure Msg Ca HEALTH 350.1.13.10 ity of [place] 4.2.7.2.686 [place] as TALYA?BLEA [phone] Ok dicaliyah [place] [address] [place] [address] OFFICE [facility] 2021-08-09 2021-08-09 Outpatient R JUDY [facility] [id number] Univers 14:45:00 14:45:00 [facility] 2021-08-09 2021-08-09 [facility]phone [facility] 1.2.391.257 [id number] Univers 00:00:00 00:00:00 Ca HEALTH 350.1.13.10 it y of [place] 4.2.7.2.686 [place] as TALYA?BLEA [phone] Ok dicaliyah [place] [address] [place] [address] OFFICE [facility] 2021-08-08 2021-08-08 [facility] [id number] Univers 11:30:00 23:59:00 CA lechuga [facility] 2021-08-08 2021-08-08 [facility] 1.2.840.114 [id number] Univers 11:30:00 23:59:00 Encounter Ca HEALTH 350.1.13.10 ity of [place] 4.2.7.2.686 [place] as TALYA?BLEA [phone] Ok dical [facility] 808 [facility] OFFICE [facility] 2021-08-08 2021-08-08 Outpatient R JAUN [facility] [id number] Univers 11:15:00 11:15:00 [place] lechuga [facility] 2021-08-08 2021-08-08 Outpatient R JUAN [facility] [id number] Univers 11:00:00 11:00:00 CA lechuga [facility] 2021-08-08 2021-08-08 Patient Doctor JORDAN 1.2.840.114 [id number] Univers 00:00:00 00:00:00 Secure Msg Unassigned, YAZMIN 350.1.13.10 ity of [facility] 4.2.7.2.686 [place] as [phone] [address] 2021-08-07 2021-08-07 Office [facility] 1.2.840.114 [id number] Univers 09:30:00 10:23:21 Visit Ca [facility] 350.1.13.10 it y of [place] 4.2.7.2.686 Martin as TALYA?BLEA [phone] [address] OFFICE [facility] 2021-08-07 2021-08-07 Outpatient R JUAN [facility] [id number] Univers 09:30:00 10:23:21 CA lechuga [facility] 2021-08-07 2021-08-07 Outpatient R JUAN [facility] [id number] Univers 09:30:00 09:30:00 CA lechuga [facility] 2021-08-07 2021-08-07 Patient Juan [facility] 1.2.840.114 [id number] Univers 00:00:00 00:00:00 Secure Msg Ca HEALTH 350.1.13.10 [facility] 4.2.7.2.686 [place] as TALYA?BLEA [phone] Ok whit [address] MEDICAL OFFICE [facility] 2021-08-07 2021-08-07 Patient Juan [facility] 1.2.840.114 [id number] Univers 00:00:00 00:00:00 Secure Msg Ca HEALTH 350.1.13.10 ity [facility] 4.2.7.2.686 [place] as TALYA?BLEA [phone] Ok dic[address] MEDICAL OFFICE BUILDING 2021-08-07 2021-08-07 Patient Onur [facility] 1.2.840.114 [id number] Univers 00:00:00 00:00:00 Secure Msg Desiree A FLACO 350.1.13.10 ity of [facility] 4.2.7.2.686 [place] [phone] [address] 2021-08-04 2021-08-04 Outpatient R SHADIA [facility] [id number] Univers 10:00:00 10:00:00 PETRA ity [facility] 2021-08-04 2021-08-04 Patient Juan [facility] 1.2.840.114 [id number] Univers 00:00:00 00:00:00 Secure Msg Ca HEALTH 350.1.13.10 ity [facility] 4.2.7.2.686 [place] as TALYA?BLEA [phone] [address] MEDICAL OFFICE [facility] 2021-08-03 2021-08-03 Office SOURAV Diaz 1.2.840.114 [id number] Univers 11:00:00 12:48:43 Visit Juan Y 350.1.13.10 it y [facility] 4.2.7.2.686 [place] as BANK [id number] [address] 2021-08-03 2021-08-03 Outpatient R EMILY [facility] [id number] Univers 11:00:00 12:48:43 JUAN ity [facility] 2021-08-03 2021-08-03 Outpatient R EMILY [facility] [id number] Univers 11:00:00 11:00:00 JUAN ity [facility] 2021-08-03 2021-08-03 Patient Onur [facility] 1.2.840.114 [id number] Univers 00:00:00 00:00:00 Secure Msg Desiree A FLACO 350.1.13.10 ity of [facility] 4[place].2.[place] [id number] [address] 2021-08-02 2021-08-02 [facility] [id number] [id number] Univers 00:00:00 00:00:00 Ca HEALTH 350.1.13.10 it y [facility] 4.2.7.2.686 [place] TALYA?BLEA [phone] [address] OFFICE [facility] 2021-07-21 2021-07-21 Outpatient R DARRION WYATT [facility] [id number] Univers 08:00:00 08:52:53 DARRION WYATT [facility] 2021-07-17 2021-07-17 Outpatient R JUAN [facility] [id number] Univers 11:30:00 11:30:00 CA [facility] 2021-07-17 2021-07-17 [facility] 1.2.840.114 [id number] Univers 00:00:00 00:00:00 Secure Msg Ca HEALTH 350.1.13.10 ity of [place] 4.2.7.2.686 [place] as TALYA?BLEA [id number] 24 [address] 2021-06-19 2021-06-19 Telephone [facility] 1.2.848.349 [id number] Univers 00:00:00 00:00:00 Ca HEALTH 350.1.13.10 it y of [place] 4.2.7.2.686 [place] as TALYA?BLEA [phone] [address] 2021-06-09 2021-06-09 Telephone [facility] 1.2.597.439 [id number] Univers 00:00:00 00:00:00 Reji [place] 350.1.13.10 ity of [place].2.7.2.[place] [phone] Ok whit [facility] 059 [facility] 2021-06-06 2021-06-06 Outpatient R DEYVI [facility] [id number] Univers 11:15:00 11:15:00 TETO chino [facility] 2021-06-06 2021-06-06 Outpatient R DEYVI [facility] [id number] Univers 11:15:00 11:15:00 TETO lechuga [facility] 2021-06-02 2021-06-02 Outpatient R CRISTINA [facility] [id number] Univers 15:45:00 15:45:00 WONDIFUL ity o f [facility] 2021-05-31 2021-05-31 Outpatient [facility] [id number] Univers 10:00:00 10:46:31 CA lechuga [facility] 2021-05-31 2021-05-31 Office [facility] 1..840.114 [id number] Univers 10:00:00 10:46:31 Visit Ca HEALTH 350.1.13.10 it y of [place] 4.2.7.2.686 [place] as TALYA?BLEA [phone] [address] MEDICAL OFFICE [facility] 2021-05-31 2021-05-31 Outpatient R VÍCTORKassandra [facility] [id number] Univers 10:00:00 10:46:31 CA lechuga [facility] 2021-05-31 2021-05-31 Orders Doctor JORDAN 1..840.114 [id number] Univers 00:00:00 00:00:00 Only Unassigned, YAZMIN 350.1.13.10 ity of [place] [facility] 4.2.7.2.686 [place] as [phone] [address] 2021-05-26 2021-05-26 Telephone [facility] 1.2.420.901 [id number] Univers 00:00:00 00:00:00 Skylar A HEALTH 350.1.13.10 i ty of [place] 4.2.7.2.686 [place] as TALYA?BLEA [phone] [address] MEDICAL OFFICE [facility] 2021-05-26 2021-05-26 Patient Prasanna Vargas [facility] 1.2.741.008 [id number] Univers 00:00:00 00:00:00 Secure Msg Cam [place] 350.1.13.10 ity of [place].2.7.2.[place] [phone] Ok dical NAL 134 [facility] 2021-05-25 2021-05-25 Telemedici [facility]UN[facility] 1.2.840.114 [id number] Univers 14:00:00 14:30:00 ne Visit Skylar A HEALTH 350.1.13.10 ity of [place] 4.2.7.2.686 [place] TALYA?BLEA [id number] [address] OFFICE [facility] 2021-05-25 2021-05-25 [facility] [id number] Univers 14:00:00 14:00:00 SKYLAR ity [facility] 2021-05-25 2021-05-25 Outpatient [facility] [id number] Univers 14:00:00 14:00:00 SKYLAR ity [facility] 2021-05-25 2021-05-25 [facility] 1.2.840.114 [id number] Univers 00:00:00 00:00:00 Secure Msg Skylar A HEALTH 350.1.13.10 ity of [place] 4.2.7.2.686 [place] TALYA?BLEA [phone] [address] 2021-05-25 2021-05-25 Patient [facility] 1..840.114 [id number] Univers 00:00:00 00:00:00 Secure Msg Skylar A HEALTH 350.1.13.10 ity of [place] 4.2.7.2.686 [place] TALYA?BLEA [phone] [address] OFFICE [facility] 2021-05-24 2021-05-24 Telephone [facility]UN[facility] 1.2.423.305 [id number] Univers 00:00:00 00:00:00 Rad Cuello [place] 350.1.13.10 ity of [place].7.2.[place] [phone] [facility] NAL 059 [facility] 2021-05-24 2021-05-24 Patient [facility] 1.2.840.114 [id number] Univers 00:00:00 00:00:00 Secure Msg Sendil [facility]. [place] 350.1.13.10 ity of [place] 4.2.7.2.686 [place] KOTA[place] [phone] Ok dicaliyah TORRES 059 [facility] 2021-05-24 2021-05-24 Patient Cristina [facility] 1.2.840.114 [id number] Univers 00:00:00 00:00:00 Secure Msg Wondiful A HEALTH 350.1.13.10 ity of [place] 4.2.7.2.686 [place] as TALYA?BLEA [phone] [address] OFFICE [facility] 2021-05-23 2021-05-23 Outpatient R [facility] [id number] Univers 10:00:00 10:00:00 ity of [facility] 2021-05-23 2021-05-23 Outpatient R [facility] [id number] Univers 10:00:00 10:00:00 ity of [facility] 2021-05-23 2021-05-23 Patient [facility] 1.2.840.114 [id number] Univers 00:00:00 00:00:00 Secure Msg Wondiful A HEALTH 350.1.13.10 ity of [place] 4.2.7.2.686 [place] TALYA?BLEA [phone] [address] OFFICE [facility] 2021-05-16 2021-05-16 Out[facility] [id number] Univers 09:00:00 09:00:00 TETO ity of [facility] 2021-05-12 2021-05-12 Orders Doctor JORDAN 1.2.840.114 [id number] Univers 00:00:00 00:00:00 Only Unassigned, YAZMIN 350.1.13.10 ity of [facility] 4.2.7.2.686 [place] as [phone] [address] 2021-05-10 2021-05-10 [facility] [id number] Univers 13:00:00 13:00:00 WONDIFUL ity o f [facility] 2021-05-10 2021-05-10 Outpatient R CRISTINA [facility] [id number] Univers 13:00:00 13:00:00 WONDIFUL ity o f [facility] 2021-05-09 2021-05-09 Telephone Prasanna Vargas [facility] 1.2.840.114 [id number] Univers 00:00:00 00:00:00 Cam [place] 350.1.13.10 i ty of [place].7.2.[place] [phone] Ok dical NAL 134 [facility] 2021-05-09 2021-05-09 Patient [facility] 1.2.840.114 [id number] Univers 00:00:00 00:00:00 Secure Msg Sendil [facility] [place] 350.1.13.10 [facility] 4.2.7.2.[place] [phone] Ok dical NAL 9 [facility] 2021-05-08 2021-05-08 Outpatient [facility] [id number] Univers 16:00:00 16:00:00 JE ankush [facility] 2021-05-08 2021-05-08 Outpatient R [facility] [id number] Univers 16:00:00 16:00:00 JE itchino [facility] 2021-05-08 2021-05-08 Patient [facility] 1.2.840.114 [id number] Univers 00:00:00 00:00:00 Secure Msg Sendil [facility] [place] 350.1.13.10 [facility] 4.2.7.2.[place] [phone] Ok dical NAL 9 [facility] 2021-05-08 2021-05-08 Patient [facility] 1.2.840.114 [id number] Univers 00:00:00 00:00:00 Secure Msg Sendil [facility] [place] 350.1.13.10 ity of [place] 4.2.7.2.[place] [phone] Ok dical NAL [address] [facility] 2021-05-04 2021-05-04 Patient [facility] 1.2.840.114 [id number] Univers 00:00:00 00:00:00 Secure Msg Rad [place] 350.1.13.10 ity of [place].7.2.[place] [phone] Ok dicfl NAL 059 [facility] 2021-05-04 2021-05-04 Patient [facility] 1.2.840.114 [id number] Univers 00:00:00 00:00:00 Secure Msg Bintay [place] 350.1.13.10 [facility] 4.2.7.2.[place] [phone] [place] 919199 [facility] 2021-05-03 2021-05-03 Outpatient [facility] [id number] Univers 11:15:36 23:59:00 REJI maradiagay o f [facility] 2021-05-03 2021-05-03 [facility] 1.2.840.114 [id number] Univers 11:15:36 23:59:00 Encounter Reji [place] 350.1.13.10 ity [facility] 4.2.7.2.[place] [phone] [facility] 846 [facility] 2021-05-03 2021-05-03 Telephone [facility]UN[facility] 1.2.840.114 [id number] Univers 00:00:00 00:00:00 Wondiful A HEALTH 350.1.13.10 ity of [place] 4.2.7.2.686 [place] TALYA?BLEA [phone] [facility] [address] [facility] 2021-05-02 2021-05-02 Telephone [facility] 1.2.763.673 [id number] Univers 00:00:00 00:00:00 Rad [place] 350.1.13.10 ity of [place].2.[place] [phone] [facility] 059 [facility] 2021-05-02 2021-05-02 Patient Cristina [facility] 1.2.840.114 [id number] Univers 00:00:00 00:00:00 Secure Msg Wondiful A HEALTH 350.1.13.10 ity of [place] 4.2.7.2.686 [place] as TALYA?BLEA [phone] [address] OFFICE [facility] 2021-05-02 2021-05-02 Telephone Cristina [facility] 1.2.840.114 [id number] Univers 00:00:00 00:00:00 Wondiful A HEALTH 350.1.13.10 ity of [place] 4.2.7.2.686 [place] as TALYA?BLEA [id number] [address] OFFICE [facility] 2021-05-02 2021-05-02 Patient [facility] 1.2.840.114 [id number] Univers 00:00:00 00:00:00 Secure Msg Sendil [facility] [place] 350.1.13.10 ity of [place].7.2.[place] [phone] [facility] 059 [facility] 2021-05-02 2021-05-02 Patient Cristina [facility] 1.2.840.114 [id number] Univers 00:00:00 00:00:00 Secure Msg Wondiful A HEALTH 350.1.13.10 ity of [place] 4.2.7.2.686 [place] as TALYA?BLEA [phone] [address] OFFICE [facility] 2021-04-28 2021-04-28 Patient [facility] 1.2.840.114 [id number] Univers 00:00:00 00:00:00 Secure Msg Wondiful A HEALTH 350.1.13.10 ity of [place] 4.2.7.2.686 [place] as TALYA?BLEA [phone] [address] OFFICE [facility] 2021-04-27 2021-04-27 Emergency X [facility] ERT [id number] Univers 14:24:00 15:49:00 MAGGIE lechuga of [facility] 2021-04-27 2021-04-27 Emergency [facility]UN[facility] 1.2.840.114 [id number] Univers 14:24:00 15:49:00 Maggie [place] 350.1.13.10 ity of [place] 4.2.7.2.686 [facility] [phone] [facility] [address] [place] 2021-04-27 2021-04-27 Laboratory Only, Ang Db Test [facility] 1.2.8 40.114 [id number] Univers 11:15:00 11:30:00 Only Unknown, Attending HEALTH 350.1.13.10 ity of Juan JosekyleBj chavezenrique [place] 4.2.7.2.686 [place] TALYA?BLEA [phone] [facility] [address] [place] MEDICAL OFFICE BUILDING 2021-04-27 2021-04-27 Outpatient R SIL [facility] [id number] Univers 11:15:00 11:15:00 THONY ity [facility] 2021-04-27 2021-04-27 Orders Doctor JORDAN 1.2.840.114 [id number] Univers 00:00:00 00:00:00 Only Unassigned, YAZMIN 350.1.13.10 ity of [place] [facility] 4.2.7.2.686 [place] as [phone] [facility] [address] [place] 2021-04-20 2021-04-20 Outpatient R VLADIMIR [facility] [id number] Univers 15:00:00 15:00:00 SCOTT ity of [facility] 2021-04-13 2021-04-13 Patient [facility] 1.2.840.114 [id number] Univers 00:00:00 00:00:00 Secure Msg Wondiful A HEALTH 350.1.13.10 ity of [place] 4.2.7.2.686 [place] as TALYA?BLEA [phone] Ok whit [facility] [address] [place] MEDICAL OFFICE BUILDING 2021-04-12 2021-04-12 Telephone Cristina [facility] 1.2.840.114 [id number] Univers 00:00:00 00:00:00 Wondiful A HEALTH 350.1.13.10 ity of [place] 4.2.7.2.686 [place] as TALYA?BLEA [phone] Ok dical KNEY [address] [place] MEDICAL OFFICE BUILDING 2021-03-27 2021-03-27 Telephone Prasanna Vargas [facility] 1.2.840.114 [id number] Univers 00:00:00 00:00:00 Cam [place] 350.1.13.10 i ty [facility] 4.2.7.2.[place] [phone] Ok dical NAL [address] BUILDING 2021-03-24 2021-03-24 Patient Doctor JORDAN 1.2.840.114 [id number] Univers 00:00:00 00:00:00 Secure Msg Unassigned, YAZMIN 350.1.13.10 [facility] 4.2.7.2.686 [place] as [phone] [address] 2021-03-23 2021-03-23 Outpatient R KAVYA [facility] [id number] Univers 13:30:00 13:30:00 CHILVANA ity o f [facility] 2021-03-23 2021-03-23 Outpatient R KAVYA [facility] [id number] Univers 13:30:00 13:30:00 CHILVANA ity o f [facility] 2021-03-22 2021-03-22 Outpatient R ADITYA MEEKS [facility] [id number] Univers 09:20:00 09:20:00 ADITYA MEEKS itchino [facility] 2021-03-22 2021-03-22 Outpatient R ADITYA MEEKS [facility] [id number] Univers 09:20:00 09:20:00 JAYCE MEEKSL ity [facility] 2021-03-20 2021-03-20 Outpatient R CRISTINA [facility] [id number] Univers 00:00:00 00:00:00 WONDIFUL ity o f [facility] 2021-03-18 2021-03-18 Donaldo [facility]UN[facility] 1.2.840.114 [id number] Univers 00:00:00 00:00:00 Management Wondiful A HEALTH 350.1.13.10 ity of [place] 4.2.7.2.686 [place] as TALYA?BLEA [phone] Ok whit [place] [address] [place] MEDICAL OFFICE [facility] 2021-03-16 2021-03-16 Grievance Coordinator Lab, Ang - Db [facility] 1.2.840.1 14 [id number] Univers 11:16:07 11:31:07 Visit Claudette Evans A HEALTH 350.1.13.1 0 ity of [place] 4.2.7.2.686 [place] as TALYA?BLEA [phone] [facility] MINOR [address] [place] MEDICAL OFFICE [facility] 2021-03-16 2021-03-16 Outpatient R CRISTINA [facility] [id number] Univers 11:30:00 11:30:00 WONDIFUL ity o [facility] 2021-03-16 2021-03-16 Outpatient R CRISTINA [facility] [id number] Univers 11:00:00 11:14:45 WONDIFUL ity o [facility] 2021-03-16 2021-03-16 Office [facility] 1.2.840.114 [id number] Univers 10:00:58 11:14:45 Visit Wondiful A HEALTH 350.1.13.10 ity of [place] 4.2.7.2.686 [place] as TALYA?BLEA [phone] [address] OFFICE [facility] 2021-03-16 2021-03-16 Patient [facility] 1.2.840.114 [id number] Univers 00:00:00 00:00:00 Secure Msg Wondiful A HEALTH 350.1.13.10 ity of [place] 4.2.7.2.686 [place] as TALYA?BLEA [phone] [address] MEDICAL OFFICE [facility] 2021-03-02 2021-03-02 Outpatient R CRISTINA [facility] [id number] Univers 16:15:00 16:15:00 WONDIFUL ity o [facility] 2021-02-28 2021-02-28 Outpatient R MITCHELL [facility] [id number] Univers 18:30:00 18:30:00 WILLIE itchino [facility] 2021-02-28 2021-02-28 Telephone [facility] 1.2.840.114 [id number] Univers 00:00:00 00:00:00 Wondiful A Health 350.1.13.10 ity of [place] 4.2.7.2.686 [place] as Talya?Blea [phone] [address] 2021-02-27 2021-02-27 Outpatient R STEPHANY [facility] [id number] Univers 09:00:00 09:00:00 AMELIA lechuga [facility] 2021-02-23 2021-02-23 Telephone [facility] 1.2.840.114 [id number] Univers 00:00:00 00:00:00 Wondiful A Health 350.1.13.10 ity of [place] 4.2.7.2.686 [place] as Talya?Blea [phone] [address] 2021-02-10 2021-02-10 Emergency Dev, Kaycee [facility] 1.2.840.114 [id number] Univers 18:12:00 23:39:00 Sharlene [place] 350.1.13.10 i ty of [place] 4.2.7.2.[place] [phone] [address] 2021-02-10 2021-02-10 Patient [facility] 1.2.840.114 [id number] Univers 00:00:00 00:00:00 Secure Msg Wondiful A HEALTH 350.1.13.10 [facility]y [facility] 4.2.7.2.686 [place] TALYA?BLEA [phone] [address] 2021-02-10 2021-02-10 Patient [facility] 1.2.840.114 [id number] Univers 00:00:00 00:00:00 Secure Msg Wondiful A HEALTH 350.1.13.10 ity of [place] 4.2.7.2.686 [place] as TALYA?BLEA [phone] [address] 2021-02-10 2021-02-10 Patient Cristina [facility] 1.2.840.114 [id number] Univers 00:00:00 00:00:00 Secure Msg Wondiful A HEALTH 350.1.13.10 ity of [place] 4.2.7.2.686 [place] as TALYA?BLEA [phone] Ok dicaliyah [place] 044 [facility] OFFICE BUILDING 2021-02-10 2021-02-10 Patient Cristina [facility] 1.2.840.114 [id number] Univers 00:00:00 00:00:00 Secure Msg Wondiful A HEALTH 350.1.13.10 ity of [place] 4.2.7.2.686 [place] as TALYA?BLEA [phone] Ok dicaliyah [place] 044 [facility] OFFICE BUILDING 2021-02-09 2021-02-09 Hospital [facility] 1.2.870.346 [id number] Univers 13:40:00 23:59:00 Encounter Wondiful A Health 350.1.13.10 ity of [place] 4.2.7.2.686 [place] as Talya?Blea [phone] Ok dicaliyah [place] 809 [facility] Office Building 2021-02-09 2021-02-09 Grievance Coordinator Lab, Ang - Db [facility] 1.2.840.1 14 [id number] Univers 13:49:05 14:04:05 Visit Claudette Evans A Health 350.1.13.1 0 ity of [place] 4.2.7.2.686 [place] as Talya?Blea [phone] Ok dicaliyah [place] [address] [place] Medical Office Building 2021-02-09 2021-02-09 Office [facility] 1.2.840.114 [id number] Univers 12:23:13 13:47:12 Visit Wondiful A Health 350.1.13.10 ity of [place] 4.2.7.2.686 [place] as Talya?Blea [phone] Ok dicaliyah [place] 044 [facility] Office Building 2021-02-09 2021-02-09 Outpatient R CRISTINA [facility] [id number] Univers 13:00:00 13:00:00 WONDIFUL ity o f [facility] 2021-02-09 2021-02-09 Patient Doctor ORTEGA 1.2.840.114 [id number] Univers 00:00:00 00:00:00 Secure Msg Unassigned, YAZMIN 350.1.13.10 [facility] 4.2.7.2.686 [place] as [phone] [address] 2021-02-08 2021-02-08 Outpatient R ADITYA MEEKS [facility] [id number] Univers 10:20:00 10:20:00 ADITYA MEEKS ity of [facility] 2021-02-07 2021-02-07 Patient Cristina [facility] 1.2.840.114 [id number] Univers 00:00:00 00:00:00 Secure Msg Wondiful A HEALTH 350.1.13.10 ity of [place] 4.2.7.2.686 [place] as TALYA?BLEA [phone] [address] MEDICAL OFFICE [facility] 2021-02-02 2021-02-02 [facility] [id number] Univers 10:30:00 10:30:00 SKYLARLEE lechuga [facility] 2021-02-02 2021-02-02 Telephone [facility] 1.2.840.114 [id number] Univers 00:00:00 00:00:00 Wondiful A Health 350.1.13.10 ity of [place] 4.2.7.2.686 [place] as Talay?Blea [phone] [address] Medical Office [facility] 2021-02-01 2021-02-01 Out[facility] [id number] Univers 08:30:00 08:30:00 SKYLARLEE lechuga [facility] 2021-01-31 2021-01-31 Urgent Oliver [facility] 1.2.840.114 [id number] Univers 18:44:04 19:41:26 Care [facility] 350.1.13.10 i ty of [place] 4.2.7.2.686 [place] as Talya?Blea [phone] [address] Medical Office [facility] 2021-01-31 2021-01-31 Outpatient R OLIVER [facility] [id number] Univers 19:00:00 19:00:00 FLACO fitzpatrick f [facility] 2021-01-31 2021-01-31 Telephone [facility] 1.2.840.114 [id number] Univers 00:00:00 00:00:00 Wondiful A Health 350.1.13.10 ity of [place] 4.2.7.2.686 [place] as Talya?Blea [phone] [address] Office [facility] 2021-01-31 2021-01-31 Patient [facility] 1.2.840.114 [id number] Univers 00:00:00 00:00:00 Secure Msg Wondiful A HEALTH 350.1.13.10 ity of [place] 4.2.7.2.686 [place] as TALYA?BLEA [phone] [facility] 044 [facility] OFFICE [facility] 2021-01-30 2021-01-30 Telephone [facility] 1.2.735.933 [id number] Univers 00:00:00 00:00:00 Sendil MiracleHPilar [place] 350.1.13.10 ity of [place] [phone] [facility] [address] [facility] 2021-01-30 2021-01-30 Patient [facility] 1.2.840.114 [id number] Univers 00:00:00 00:00:00 Secure Msg Wondiful A HEALTH 350.1.13.10 ity of [place] 4.2.7.2.686 [place] as PROFESSIO [id number] [address] ONE 2021-01-26 2021-01-26 Outpatient R PONCE [facility] [id number] Univers 14:00:00 14:00:00 SENDIL itchino of [facility] 2021-01-26 2021-01-26 Patient [facility] 1.2.840.114 [id number] Univers 00:00:00 00:00:00 Secure Msg Skylar A HEALTH 350.1.13.10 ity of [place] 4.2.7.2.686 [place] as TALYA?BLEA [phone] [address] MEDICAL OFFICE [facility] 2021-01-25 2021-01-25 Outpatient R [facility] [id number] Univers 15:00:00 15:00:00 ity of [facility] 2021-01-21 2021-01-21 Patient [facility] 1.2.840.114 [id number] Univers 00:00:00 00:00:00 Secure Msg Skylar A HEALTH 350.1.13.10 ity of [place] 4.2.7.2.686 [place] as TALYA?BLEA [phone] [address] OFFICE [facility] 2021-01-20 2021-01-20 [facility] 1.2.840.114 [id number] Univers 16:51:22 17:12:41 ne Visit Skylar [facility] 350.1.13.10 ity of [place] 4.2.7.2.686 [place] as Talya?Blea [id number] [address] 2021-01-20 2021-01-20 [facility] [id number] Univers 16:30:00 16:30:00 SKYLAR ity [facility] 2021-01-19 2021-01-19 [facility] [id number] Univers 10:15:00 10:15:00 KAYLEY ity of [facility] 2021-01-14 2021-01-14 Case JORDAN Robledo 1.2.840.114 [id number] Univers 00:00:00 00:00:00 Management Kassandra ARCE 350.1.13.10 ity of [facility] 4.2.7.2.686 [place] as [id number] [address] 2021-01-14 2021-01-14 Patient Doctor JORDAN 1.2.840.114 [id number] Univers 00:00:00 00:00:00 Secure Msg UnassYAZMIN orozco 350.1.13.10 ity of [place] [facility] 4.2.7.2.686 [place] as [id number] [facility] [address] 2021-01-12 2021-01-12 Emergency [facility] [id number] Univers 16:10:00 19:45:00 Karin Lawson 350.1.13.10 i [place] [id number] [facility] [address] [place] 2021-01-12 2021-01-12 Outpatient Farzana MEDRANO [facility] [id number] Univers 15:20:00 15:20:00 WILLIE ity of [facility] 2021-01-12 2021-01-12 Urgent Thony Johnson [facility] 1.2.840.114 [id number] Univers 14:46:57 15:06:57 [facility] 350.1.13.10 ity of [place] 4.2.7.2.686 [place] Talya?Blea [id number] [address] [facility] 2020-12-26 2020-12-26 [facility] [id number] Univers 15:30:00 16:13:32 SENDIL it of [facility] 2020-12-26 2020-12-26 Office [facility] 1.2.840.114 [id number] Univers 15:30:00 16:13:32 Visit Rad LAWSON 350.1.13.10 ity [facility] 4.2.7.2.[place] [id number] [address] 2020-12-26 2020-12-26 [facility] 1.2.840.114 [id number] Univers 15:00:32 16:13:32 Visit Rad Lawson 350.1.13.10 [place] [id number] [address] 2020-12-26 2020-12-26 [facility] [id number] Univers 15:30:00 15:30:00 SENDIL itchino [facility] 2020-11-29 2020-11-29 Patient Ponce [facility] 1.2.840.114 [id number] Univers 00:00:00 00:00:00 Secure Msg Rad Cuello LUL[facility] 350.1.13.10 [facility] 4.2.7.2.686 Terrie s PROFESSIO [phone] Ok dical NAL [address] BUILDING 2020-11-22 2020-11-22 [facility] [id number] Univers 11:00:00 11:00:00 DESIREE lechuga [facility] 2020-11-10 2020-11-10 Urgent Alissa Collins [facility] 1.2.840.114 [id number] 18:42:46 19:53:43 [facility] 350.1.13.10 [place] 4.2.7.2.686 Professio [phone] nal [address] 2020-11-10 2020-11-10 Outpatient R [facility] [id number] Univers 19:00:00 19:00:00 ity [facility] 2020-10-31 2020-10-31 Emergency Kaycee Méndez [facility] 1.2.840.114 [id number] 18:52:00 22:15:00 Sharlene Lawson 350.1.13.10 [place] 4.2.7.2.686 [place] [phone] [id number] 2020-10-31 Outpatient R NATASHA [facility] [id number] Univers 19:00:00 19:00:00 BEBA lechuga o f [facility] 2020-10-31 2020-10-31 Orders Doctor JORDAN 1.2.840.114 [id number] 00:00:00 00:00:00 Only Unassigned, YAZMIN 350.1.13.10 [place] [facility] 4.2.7.2.686 [id number] [id number] 2020-10-20 2020-10-20 Emergency Kaycee Méndez [facility] 1.2.840.114 [id number] 14:02:00 17:13:00 Sharlene Vancleve 350.1.13.10 [place] 4.2.7.2.686 [place] [id number] 084 2020-10-18 2020-10-18 Patient Prasanna Vargas [facility] 1.2.056.704 [id number] Univers 00:00:00 00:00:00 Secure Msg Cam [place] 350.1.13.10 ity of [place] [phone] Ok dical NAL [address] [place] [address] 2020-10-14 2020-10-14 Hospital Prasanna Vargas [facility] 1.2.840.114 [id number] 10:00:00 23:59:00 Encounter Cam [place] 350.1.13.10 [place] 4.2.7.2.686 [place] [id number] 806 2020-10-14 2020-10-14 Outpatient Farzana MIXON [facility] [id number] Univers 13:30:00 13:30:00 DESIREE lechuga [facility] 2020-10-11 2020-10-11 Patient Prasanna Vargas [facility] 1.2.993.734 [id number] Univers 00:00:00 00:00:00 Secure Msg Cam [place] 350.1.13.10 [place]y [place] [phone] Ok dical NAL [address] [place] [address] 2020-10-11 2020-10-11 Patient Prasanna Vargas [facility] 1.2.691.871 [id number] Univers 00:00:00 00:00:00 Secure Msg Cam [place] 350.1.13.10 [place].2.[place] [phone] Ok dical NAL [address] [place] [address] 2020-10-09 2020-10-09 Emergency [facility] 1.2.765.076 [id number] 12:00:00 15:57:00 Lydia Ricketts [place] 350.1.13.10 [place] 4.2.7.2.686 [place] [id number] 084 2020-10-07 2020-10-07 Patient Prasanna Vargas [facility] 1.2.732.536 [id number] Univers 00:00:00 00:00:00 Secure Msg Cam [place] 350.1.13.10 ity of [place] [phone] Ok dical NAL [address] [place] [address] 2020-10-07 2020-10-07 Patient Prasanna Vargas [facility] 1.2.692.894 [id number] Univers 00:00:00 00:00:00 Secure Msg Cam [place] 350.1.13.10 [place].2.[place] [phone] Ok dical NAL [address] [place] [address] 2020-10-07 2020-10-07 Patient Prasanna [facility]argas [facility] 1.2.626.879 [id number] Univers 00:00:00 00:00:00 Secure Msg Cam [place] 350.1.13.10 [place] 4.[place].2.[place] [phone] Ok dical NAL [address] [place] [address] 2020-10-07 2020-10-07 Patient Prasanna Vargas [facility] 1.2.566.197 [id number] Univers 00:00:00 00:00:00 Secure Msg Cam [place] 350.1.13.10 [place] 4.2.7.2.[place] [phone] Ok dical NAL [address] [place] [address] 2020-10-07 2020-10-07 Patient Prasanna Vargas [facility] 1.2.880.267 [id number] Univers 00:00:00 00:00:00 Secure Msg Cam [place] 350.1.13.10 [place] 4.2.7.2.[place] [phone] Ok dical NAL [address] [place] [address] 2020-10-07 2020-10-07 Patient Prasanna Vargas [facility] 1.2.941.486 [id number] Univers 00:00:00 00:00:00 Secure Msg Cam [place] 350.1.13.10 [place] 4.[place].2.[place] [phone] Ok dical NAL [address] [place] [address] 2020-10-07 2020-10-07 Patient Prasanna Vargas [facility] 1.2.560.346 [id number] Univers 00:00:00 00:00:00 Secure Msg Cam [place] 350.1.13.10 ity of [place] 4.2.7.2.[place] [phone] Ok dic[address] 2020-10-06 2020-10-06 Office Prasanna Vargas [facility] 1.2.443.474 [id number] 08:53:00 09:46:44 Visit Cam [place] 350.1.13.10 [place] 4.2.7.2.686 Professio [phone] [address] 2020-10-06 2020-10-06 Outpatient R PRASANNA VARGAS [facility] [id number] Univers 09:30:00 [facility] 2020-10-04 2020-10-04 Outpatient R ONUR [facility] [id number] Univers 14:00:00 14:00:00 DESIREE chino [facility] 2020-09-30 2020-09-30 Outpatient R ONUR [facility] [id number] Univers 10:30:00 10:30:00 DESIREE chino [facility] 2020-09-29 2020-09-29 Outpatient R JASPAL [facility] [id number] Univers 13:45:00 13:45:00 PREET chino [facility] 2020-09-06 2020-09-06 Outpatient R ALICIA PRASANNA [facility] [id number] Univers 15:30:00 [facility] 2020-09-05 2020-09-05 [facility] 1.2.301.360 [id number] Univers 00:00:00 00:00:00 Secure Msg Cam [place] 350.1.13.10 ity [facility] 4.2.7.2.[place] [phone] Ok dic[address] 2020-09-02 2020-09-02 Outpatient DARRION QUIROZ [facility] [id number] Univers 15:40:00 15:40:00 DARRION WYATT [facility] 2020-08-31 2020-08-31 Outpatient R PONCE [facility] [id number] Univers 10:30:00 10:30:00 [facility] 2020-08-31 2020-08-31 Patient Prasanna Vargas [facility] 1.2.218.490 [id number] Univers 00:00:00 00:00:00 Secure Msg Jm [place] 350.1.13.10 [facility] 4.2.7.2.686 Martinkassandra dailey PROFESSIO [phone] Ok dical [address] 2020-08-18 2020-08-18 Outpatient R ALICIA VARGASEN [facility] [id number] Univers 09:30:00 [facility] 2020-08-11 2020-08-11 Outpatient R PRASANNA VARGAS [facility] [id number] Univers 13:30:00 13:30:00 [facility] 2020-08-04 2020-08-04 Outpatient R VLADIMIR [facility] [id number] Univers 14:00:00 [facility]:00[facility]-07-[facility] 2020-07-28 Outpatient R PONCE [facility] [id number] Univers 10:30:00 10:30:00 SENDIL [facility] 2020-06-30 2020-06-30 Outpatient R CRISTINA [facility] [id number] Univers 16:15:00 16:15:00 WONDIFUL ity o f [facility] 2020-06-17 2020-06-17 Outpatient R DARRION WYATT [facility] [id number] Univers 15:00:00 15:00:00 DARRION WYATT [facility] 2020-06-16 2020-06-16 Outpatient R PONCE [facility] [id number] Univers 15:30:00 15:30:00 SENDIL [facility] 2020-06-09 2020-06-09 Outpatient R NI DISLA [facility] [id number] Univers 12:30:00 12:30:00 ity [facility] 2020-06-08 2020-06-08 Outpatient R NI DISLA [facility] [id number] Univers 08:00:00 08:00:00 ity [facility] 2020-06-02 2020-06-02 Outpatient R SERRA, [facility] [id number] Univers 09:00:00 09:00:00 [facility] 2020-[facility] 2020-05-28 Outpatient R NATASHA, [facility] [id number] Univers 10:00:00 10:00:00 BEBA lechuga o f [facility] 2020-05-26 2020-05-26 Patient Cristina [facility] 1.2.840.114 [id number] Univers 00:00:00 00:00:00 Secure Msg Wondiful A [facility] 350.1.13.10 ity of [place] 4.2.7.2.686 Martin as PROFESSIO [phone] [facility] [address] OFFICE BUILDING ONE 2020-05-24 2020-05-24 Outpatient R NI DISLA [facility] [id number] Univers 10:00:00 10:00:00 [facility] 2020-05-24 2020-05-24 Patient Doctor [facility] 1.2.840.114 [id number] Univers 00:00:00 00:00:00 Secure Msg Unassigned, [place] 350.1.13.10 ity of [place].2.[place] [phone] Ok dical NAL [address] BUILDING 2020-05-19 2020-05-19 Outpatient R OSITO HITCHCOCK [facility] [id number] Univers 16:30:00 [facility] 2020-05-17 2020-05-17 Outpatient R DARRION WYATT [facility] [id number] Univers 13:00:00 13:00:00 DARRION WYATT [facility] 2020-05-16 2020-05-16 Outpatient Farzana EVANS [facility] [id number] Univers 16:00:00 16:00:00 WONDIFUL ity o f [facility] 2020-05-09 2020-05-09 Patient Cristina [facility] 1.2.840.114 [id number] Univers 00:00:00 00:00:00 Secure Msg Wondiful A HEALTH 350.1.13.10 ity of [place] 4.2.7.2.686 [place] PROFESSIO [phone] Ok dical [address] OFFICE BUILDING ONE 2020-05-08 2020-05-08 Emergency X VIRGIE [facility] ERT [id number] Univers 10:24:00 13:03:00 OLAMIDE chino [facility] 2020-05-03 2020-05-03 [facility] [id number] Univers 15:00:00 15:00:00 WONDIFUL ity o f [facility] 2020-04-30 2020-05-01 [facility] [id number] Univers 11:14:00 15:50:00 RODRIGUEZ [facility] 2020-04-30 2020-04-30 [facility] [id number] Univers 10:20:00 10:20:00 ROSALES [facility] 2020-04-30 2020-04-30 [facility] [id number] Univers 10:15:00 10:15:00 ROSALES [facility] 2020-04-29 2020-04-29 Patient Heaven Hitchcocksir [facility] 1.2.840.114 [id number] Univers 00:00:00 00:00:00 Secure Msg Y HEALTH 350.1.13.10 ity of [facility] 4.2.7.2.[place] [phone] [address] 2020-04-28 2020-04-28 Outpatient R OSITO HITCHCOCK [facility] [id number] Univers 14:00:00 14:00:00 ity [facility] 2020-04-25 2020-04-25 [facility] [id number] Univers 16:15:00 16:15:00 WONDIFUL ity o f [facility] 2020-04-22 2020-04-22 Patient Vladimir [facility] 1.2.840.114 [id number] Univers 00:00:00 00:00:00 Secure Msg Scott LUL[place] 350.1.13.10 [facility] 4.2.7.2.686 Terire dailey [facility] [phone] [address] 2020-04-18 2020-04-18 Outpatient R SOITO HITCHCOCK [facility] [id number] Univers 10:00:00 [facility]:00[facility] 2020-04-15 2020-04-15 Outpatient R PONCE [facility] [id number] Univers 10:30:00 10:30:00 SENDIL [facility] 2020-04-12 2020-04-13 Outpatient X MARICRUZ [facility] [id number] Univers 13:38:00 [facility]:25[facility] 2020-03-17 2020-03-17 Outpatient R DEYVI [facility] [id number] Univers 16:15:00 16:15:00 [facility] 2020-03-04 2020-03-[address] [facility] 1.2.840.114 [id number] 00:00:00 00:00:00 MULTISPEC 350.1.13.10 [facility] 4.2.7.2.686 [place] [id number] [facility] 2020-02-25 2020-02-25 Outpatient R OSITO HITCHCOCK [facility] [id number] Univers 16:00:00 [facility]:00:[facility] Outpatient R DEYVI [facility] [id number] Univers 14:00:00 14:00:00 TETO [facility] 2020-02-08 2020-02-08 Outpatient R PRASANNA VARGAS [facility] [id number] Univers 10:30:00 10:30:00 [facility] 2020-02-05 2020-02-05 Patient AliciaPrasanna [facility] 1.2.040.442 [id number] Univers 00:00:00 00:00:00 Secure Msg Cam [place] 350.1.13.10 ity of [place] 4[place]2.7.2.[place] [phone] Ok dical NAL [address] [place] [address] 2020-02-04 2020-02-04 Outpatient R HEAVEN HITCHCOCKSIR [facility] [id number] Univers 13:30:00 13:30:00 ity of [facility] 2020-01-23 2020-01-23 Outpatient R [facility] [id number] Univers 10:15:00 10:15:00 ity of [facility] 2020-01-21 2020-01-21 Outpatient R JACK [facility] [id number] Univers 13:00:00 13:00:00 ity [facility] 2020-01-14 2020-01-14 Outpatient R JACK OSITO [facility] [id number] Univers 16:00:00 16:00:00 ity [facility] 2020-01-05 2020-01-05 Outpatient R PRASANNA VARGAS [facility] [id number] Univers 13:45:00 13:45:00 ity [facility] 2020-01-05 2020-01-05 Patient Prasanna Vargas [facility] 1.2.428.010 [id number] Univers 00:00:00 00:00:00 Secure Msg Jm [place] 350.1.13.10 ity of [place].2.[place] [phone] [address] 2019-12-03 2019-12-03 Outpatient R BRANDON, [facility] [id number] Univers 10:30:00 10:30:00 CRICKET ity o f [facility] 2019-11-27 2019-11-27 Outpatient R DEYVI [facility] [id number] Univers 11:00:00 11:00:00 TETO ity [facility] 2019-11-26 2019-11-26 Patient Doctor [place] 1.2.840.114 [id number] Univers 00:00:00 00:00:00 Secure Msg Unassigned, YAZMIN 350.1.13.10 ity of [facility] 4.2.7.2.686 Martin as [phone] [address] 2019-11-25 2019-11-25 Outpatient R DEYVI, [facility] [id number] Univers 08:00:00 08:00:00 TETO [facility] 2019-11-23 2019-11-23 Patient Doctor [facility] 1.2.840.114 [id number] Univers 00:00:00 00:00:00 Secure Msg Unassigned, [place] 350.1.13.10 ity of [place] [facility] 4.2.[place] [phone] Ok dical [address] 2019-11-18 2019-11-18 [facility] [id number] Univers 10:00:00 10:00:00 TETOJYOTHI lechuga [facility] 2019-11-17 2019-11-17 Patient Doctor [facility] 1.2.840.114 [id number] Univers 00:00:00 00:00:00 Secure Msg Unassigned, [place] 350.1.13.10 ity of [place] [facility] 4.2.7.2.[place] [phone] Ok dic[address] 2019-11-13 2019-11-13 Patient Parsanna Vargas [facility] 1.2.974.861 [id number] Univers 00:00:00 00:00:00 Secure Msg Cam [place] 350.1.13.10 ity of [place] 4.[place].2.[place] [phone] Ok dic[address] 2019-09-02 2019-09-02 Outpatient R BRANDON, [facility] [id number] Univers 11:00:00 11:00:00 CRICKET lechuga o susan [facility] 2019-08-14 2019-08-14 Outpatient R DEYVI, [facility] [id number] Univers 10:15:00 10:15:00 TETO lechuga [facility] 2019-08-13 2019-08-13 Outpatient R BRANDON, [facility] [id number] Univers 11:00:00 11:00:00 CRICKET lechuga o f [facility] 2019-08-12 2019-08-12 Outpatient R [facility] [id number] Univers 09:00:00 [facility]-07-[facility] 2019-07-20 Outpatient PRASANNA HERRERA [facility] CHRIS [id number] Univers 16:06:00 16:06:[facility] 2019-07-20 Outpatient R AKINSIPE, [facility] [id number] Univers 08:15:00 08:15:00 CRICKET ity o f [facility] 2019-07-13 2019-07-13 Outpatient R AKINSIPE, [facility] [id number] Univers 08:00:00 08:00:00 CRICKET ity o f [facility] 2019-07-12 2019-07-12 Outpatient PRASANNA HERRERA [facility] CHRIS [id number] Univers 13:39:00 13:39:00 [facility] 2019-07-06 2019-07-06 Outpatient R AKINSIPE, [facility] [id number] Univers 13:00:00 13:00:00 CRICKET ity o f [facility] 2019-06-13 2019-06-13 Emergency X MARGARITA [facility] ERT [id number] Univers 10:40:46 12:35:00 WAKIPRINCE [facility] 2019-05-13 2019-05-14 Outpatient PRASANNA HERRERA [facility] CHRIS [id number] Univers 23:07:00 09:15:00 [facility] Results Test Description Test Time Test Comments [...] 34.0 g/dL 31.6-35.1 RDW-SD (test code = 40488-5) 40.3 fL 39.0-49.9 RDW-CV (test code = 788-0) 13.1 % 12.0-15.5 PLT (test code = 777-3) 307 See_Comment [Au tomated message] The system which ge nerated this result transmit renata reference range: 166 - 35 8 10*3/?L. The reference range was not used to interpret th is result as normal/abnormal . MPV (test code = 56905-0) 11.0 fL 9.5-12.9 NRBC/100 WBC (test code = 0.0 See_Comment [ Automated message] The [id number]) system which AQH nerated this result transmit renata reference range: 0.0 - 10 .0 /100 WBCs. The reference r david was not used to interpr et this result as normal/abnor mal. NRBC x10^3 (test code = See_Comment [Au tomated message] The 2564220934) system which AQH nerated this result transmit renata reference range: 10*3/?L. The reference range was not u sed to interpret this result as normal/abnormal . GRAN MAT (NEUT) % (test code 52.0 % = 770-8) IMM GRAN % (test code = 0.20 % 0087967862) LYMPH % (test code = 736-9) 38.0 % MONO % (test code = 5905-5) 4.6 % EOS % (test code = 713-8) 4.6 % BASO % (test code = 706-2) 0.6 % GRAN MAT x10^3(ANC) (test 2.84 10*3/uL 1.88-7.09 code = 8445383188) IMM GRAN x10^3 (test code = 0.00-0.06 7552247358) LYMPH x10^3 (test code = 2.07 10*3/uL 1.32-3.29 731-0) MONO x10^3 (test code = 0.25 10*3/uL 0.33-0.92 L 742-7) EOS x10^3 (test code = 0.25 10*3/uL 0.03-0.39 711-2) BASO x10^3 (test code = 0.03 10*3/uL 0.01-0.07 704-7) Lab Interpretation (test Abnormal code = 86240-3) [id number]12 04:12:43 Test Item Value Reference Range Interpretation Comments NA (test code = 137 mmol/L 135-145 8046863696) K (test code = 3.4 mmol/L 3.5-5.0 L 3931657124) CL (test code = 104 mmol/L 98-108 7997418527) CO2 TOTAL (test code = 24 mmol/L 23-31 0855720985) AGAP (test code = 9 2-16 4452361533) BUN (test code = 2 mg/dL 7-23 L 3103065450) GLUCOSE (test code = 92 mg/dL 70-110 5568950230) CREATININE (test code = 0.80 mg/dL 0.50-1.04 0727753219) TOTAL BILI (test code = 0.4 mg/dL 0.1-1.3 8332784474) CALCIUM (test code = 8.4 mg/dL 8.6-10.6 L 9249725836) T PROTEIN (test code = 6.3 g/dL 6.3-8.2 9810760550) ALBUMIN (test code = 3.7 g/dL 3.5-5.0 3853832210) ALK PHOS (test code = 87 U/L 34-122 6412311738) ALTv (test code = 27 U/L 5-35 1742-6) AST(SGOT) (test code = 33 U/L 13-40 1437075422) eGFR (test code = 86.0 mL/min/1.73m2 9043815046) WESLEY (test code = WESLEY) Association of [...] tests). Lab Interpretation Abnormal (test code = 39489-4) [facility]. METABOLIC PANEL ([id number])2023-01-12 04:12:43 Test Item Value Reference Range Interpretation Comments NA (test code = 137 mmol/L 135-145 5224200794) K (test code = 3.4 mmol/L 3.5-5.0 L 8163466815) CL (test code = 104 mmol/L 98-108 0235517871) CO2 TOTAL (test code = 24 mmol/L 23-31 3389794766) AGAP (test code = 9 2-16 1022550348) BUN (test code = 2 mg/dL 7-23 L 3400234715) GLUCOSE (test code = 92 mg/dL 70-110 5157173025) CREATININE (test code = 0.80 mg/dL 0.50-1.04 4543163496) TOTAL BILI (test code = 0.4 mg/dL 0.1-1.5 7031565781) CALCIUM (test code = 8.4 mg/dL 8.6-10.6 L 1023216088) T PROTEIN (test code = 6.3 g/dL 6.3-8.2 2767485465) ALBUMIN (test code = 3.7 g/dL 3.5-5.0 6558644287) ALK PHOS (test code = 87 U/L 34-122 5058427616) ALTv (test code = 27 U/L 5-35 1742-6) AST(SGOT) (test code = 33 U/L 13-40 4356223409) eGFR (test code = 86.0 mL/min/1.73m2 1682531047) WESLEY (test code = WESLEY) Association of [...] tests). Lab Interpretation Abnormal (test code = 41103-8) [facility]-12 04:07:04 BETA HCG<2.39Non- female and male patients: <5 mIU/mL01/11/2023 11:07 PM [facility] Gestational Age ?Range (mIU/mL) 1-10 ?Weeks ?77-06772343-01 Weeks ?89511-27371643-63 Weeks ?3602-56535748-67 Weeks ?1531-036676 Biotin has been reported to cause a negative bias, interpret results relative to patient's use of biotin. Gestational Age ?Range (mIU/mL) 1-10 ?Weeks ?04-62313140-94 Weeks ?46340-57432542-11 Weeks ?4479-25071930-74 Weeks ?1531-872245 Biotin has been reported to cause a negative bias, interpret results relativeto patient's use of biotin. Gestational Age ?Range (mIU/mL) 1-10 ?Weeks ?13-73484862-74 Weeks ?87381-74823700-30 Weeks ?5191-26980922-26 Weeks ?1531-895023 Biotin has been reported to cause a negative bias, interpret results relative to patient's use of biotin.[facility]2023-01-12 04:07:04BETA HCG<2.39Non- female and male patients: <5 mIU/mL01/11/2023 11:07 PM [facility] Gestational Age ?Range (mIU/mL) 1-10 ?Weeks ?[id number] Weeks ?67720-22766866-64 Weeks ?3636-10748363-20 Weeks ?1531-618495 Biotin has been reported to cause a negative bias, interpret results relative to patient's use of biotin. Gestational Age ?Range (mIU/mL) 1-10 ?Weeks ?[phone] Weeks ?12653-43260845-83 Weeks ?4569-30695013-36 Weeks ?1531-074650 Biotin has been reported to cause a negative bias, interpret results relativeto patient's use of biotin. Gestational Age ?Range (mIU/mL) 1-10 ?Weeks ? [phone] Weeks ?09990-71674064-76 Weeks ?9450-24161124-54 Weeks ?1531-642825 Biotin has been reported to cause a negative bias, interpret results relative to patient's use of biotin. [facility] Test Item Value Reference Range Interpretation Comments LIPASE (test code = 0639649816) 41 U/L 0-220 Lab Interpretation (test code = Normal 98671-9) [facility]58 Test Item Value Reference Range Interpretation Comments LIPASE (test code = 9954855219) 41 U/L 0-220 Lab Interpretation (test code = Normal 45042-2) [id number] 03:02:00 Test Item Value Reference Range Interpretation Comments POCT PREG (test code = 1605) Negative On board controls acceptable with Yes C Line (test code = 3574) POCT PREG LOT # (test code = 3575) [id number] POCT PREG TEST DATE (test 05/15/2024 code = 3576) Lab Interpretation (test code = Normal 90239-9) [facility] [id number] 03:02:00 Test Item Value Reference Range Interpretation Comments POCT PREG (test code = 1605) Negative On board controls acceptable with Yes C Line (test code = 3574) POCT PREG LOT # (test code = 357) [id number] POCT PREG TEST DATE (test 05/15/2024 code = 3576) Lab Interpretation (test code = Normal 76587-7) [facility], [id number] 00:23:34 Test Item Value Reference Range Interpretation Comments PREG SERUM (test code Negative = [id number]) WESLEY (test code = WESLEY) Less than 10 IU/L. ?If low titer or ectopic is suspected, resubmit specimen in 48-[address] [facility]. METABOLIC PANEL (74194)2022-07-31 23:58:12 Test Item Value Reference Range Interpretation Comments NA (test code = 140 mmol/L 135-145 9745346186) K (test code = 3.6 mmol/L 3.5-5.0 6212440860) CL (test code = 106 mmol/L 98-108 5520514293) CO2 TOTAL (test code = 21 mmol/L 23-31 L 6459581601) AGAP (test code = 13 2-16 0726635799) BUN (test code = 8 mg/dL 7-23 6328602780) GLUCOSE (test code = 90 mg/dL 70-110 8027642423) CREATININE (test code = 0.90 mg/dL 0.50-1.04 5579586199) TOTAL BILI (test code = 0.5 mg/dL 0.1-1.1 8338628417) CALCIUM (test code = 9.0 mg/dL 8.6-10.6 0961110605) T PROTEIN (test code = 7.8 g/dL 6.3-8.2 8298340939) ALBUMIN (test code = 4.6 g/dL 3.5-5.0 8169911975) ALK PHOS (test code = 63 U/L 34-122 5957463133) ALTv (test code = 23 U/L 5-35 1742-6) AST(SGOT) (test code = 27 U/L 13-40 6849483767) eGFR (test code = 75.1 mL/min/1.73m2 9395355126) WESLEY (test code = WESLEY) Association of [...] tests). Lab Interpretation Abnormal (test code = 18368-0) [facility] Test Item Value Reference Range Interpretation Comments LIPASE (test code = 6488245735) 55 U/L 0-220 Lab Interpretation (test code = Normal 36675-2) [facility] [id number] 23:47:31 Test Item Value Reference Range Interpretation Comments WBC (test code = 5.64 See_Comment [Automated 2170-2) message] The sy stem which generated this [...] RDW-SD (test code = 42.5 fL 39.0-49.9 89501-4) RDW-CV (test code = 13.0 % 12.0-15.5 788-0) PLT (test code = 339 See_Comment [Automated 777-3) message] The sy stem which generated this result transmitted reference range : 166 - 358 10*3/ ?L. The reference r david was not used to interpret this result as normal/abnormal . MPV (test code = 9.4 fL 9.5-12.9 L 77729-5) NRBC/100 WBC (test 0.0 See_Comment [Automat ed code = 9823622730) message] The system which generated this result transmitted reference range : 0.0 - 10.0 /100 WBCs. The refer ence range was not u sed to interpret th is result as normal/abnormal . NRBC x10^3 (test code See_Comment [Auto mated = 0450236518) message] The s ystem which generated this result transmitted reference range : 10*3/?L. The reference range was not used to interpret this result as normal/abnormal . GRAN MAT (NEUT) % 51.2 % (test code = 770-8) IMM GRAN % (test code 0.20 % = 8174584123) LYMPH % (test code = 36.5 % 736-9) MONO % (test code = 5.7 % 5905-5) EOS % (test code = 5.9 % 713-8) BASO % (test code = 0.5 % 706-2) GRAN MAT x10^3(ANC) 2.89 10*3/uL 1.88-7.09 (test code = 3130187343) IMM GRAN x10^3 (test 0.00-0.06 code = 4528969033) LYMPH x10^3 (test code 2.06 10*3/uL 1.32-3.29 = 731-0) MONO x10^3 (test code 0.32 10*3/uL 0.33-0.92 L = 742-7) EOS x10^3 (test code = 0.33 10*3/uL 0.03-0.39 711-2) BASO x10^3 (test code 0.03 10*3/uL 0.01-0.07 = 704-7) Lab Interpretation Abnormal (test code = 21802-0) [facility] [id number] 16:14:38 Test Item Value Reference Range Interpretation Comments POCT Molecular Strep (test code = Negative Negative 66124-2) Lab Interpretation (test code = Normal 64311-8) [facility]. METABOLIC PANEL ([id number])2022-05-05 19:35:37 Test Item Value Reference Range Interpretation Comments NA (test code = 139 mmol/L 135-145 9757272335) K (test code = 4.4 mmol/L 3.5-5.0 0581056452) CL (test code = 104 mmol/L 98-108 3765960780) CO2 TOTAL (test code = 22 mmol/L 23-31 L 8317967154) AGAP (test code = 2-16 1394331039) BUN (test code = 11 mg/dL 7-23 0760121792) GLUCOSE (test code = 95 mg/dL 70-110 4711545909) CREATININE (test code = 0.71 mg/dL 0.50-1.04 5942991777) TOTAL BILI (test code = 0.4 mg/dL 0.1-1.3 7475582679) CALCIUM (test code = 9.1 mg/dL 8.6-10.6 5430014908) T PROTEIN (test code = 7.9 g/dL 6.3-8.2 7651443096) ALBUMIN (test code = 4.7 g/dL 3.5-5.0 6615120342) ALK PHOS (test code = 114 U/L 34-122 8587769793) ALTv (test code = 21 U/L 5-35 1742-6) AST(SGOT) (test code = 21 U/L 13-40 9825823308) eGFR (test code = mL/min/1.73m2 5086742037) WESLEY (test code = WESLEY) Association of [...] tests). Lab Interpretation Abnormal (test code = 18582-4) [facility] WITH [id number] 19:25:37 Test Item Value Reference Range Interpretation Comments WBC (test code = See_Comment [Automated 4490-2) message] The sy stem which generated this [...] RDW-SD (test code = 41.7 fL 39.0-49.9 05126-1) RDW-CV (test code = 12.7 % 12.0-15.5 788-0) PLT (test code = See_Comment H [Automated 777-3) message] The sy stem which generated this result transmitted reference range : 166 - 358 10*3/ ?L. The reference r david was not used to interpret this result as normal/abnormal . MPV (test code = 8.8 fL 9.5-12.9 L 50895-9) NRBC/100 WBC (test See_Comment [Automat ed code = 7734886674) message] The system which generated this result transmitted reference range : 0.0 - 10.0 /100 WBCs. The refer ence range was not u sed to interpret th is result as normal/abnormal . NRBC x10^3 (test code See_Comment [Auto mated = 0015032713) message] The s ystem which generated this result transmitted reference range : 10*3/?L. The reference range was not used to interpret this result as normal/abnormal . GRAN MAT (NEUT) % 56.1 % (test code = 770-8) IMM GRAN % (test code 0.40 % = 4197369263) LYMPH % (test code = 29.9 % 736-9) MONO % (test code = 5.4 % 5905-5) EOS % (test code = 7.8 % 713-8) BASO % (test code = 0.4 % 706-2) GRAN MAT x10^3(ANC) 3.75 10*3/uL 1.88-7.09 (test code = 3579059221) IMM GRAN x10^3 (test 0.03 10*3/uL 0.00-0.06 code = 7979568482) LYMPH x10^3 (test code 2.00 10*3/uL 1.32-3.29 = 731-0) MONO x10^3 (test code 0.36 10*3/uL 0.33-0.92 = 742-7) EOS x10^3 (test code = 0.52 10*3/uL 0.03-0.39 H 711-2) BASO x10^3 (test code 0.03 10*3/uL 0.01-0.07 = 704-7) Lab Interpretation Abnormal (test code = 79292-3) [facility] [id number] 19:00:00 Test Item Value Reference Range Interpretation Comments POCT PREG (test code = 1605) negative On board controls acceptable with present C Line (test code = 3574) POCT PREG LOT # (test code = 3575) [id number] POCT PREG TEST DATE (test 08-11-2023 code = 3576) Lab Interpretation (test code = Normal 02281-7) [facility] [id number] 15:21:11 Test Item Value Reference Range Interpretation Comments WBC (test code = See_Comment [Automated 4029-2) message] The sy stem which generated this result transmitted reference range : 4.30 - 11.10 10*3/?L. The reference range was not used to interpret this result as normal/abnormal . RBC (test code = See_Comment [Automated 425-8) message] The sy stem which generated this [...] RDW-SD (test code = 42.6 fL 39.0-49.9 06496-3) RDW-CV (test code = 12.9 % 12.0-15.5 788-0) PLT (test code = See_Comment H [Automated 777-3) message] The sy stem which generated this result transmitted reference range : 166 - 358 10*3/ ?L. The reference r david was not used to interpret this result as normal/abnormal . MPV (test code = 9.1 fL 9.5-12.9 L 91684-3) NRBC/100 WBC (test See_Comment [Automat ed code = 1838652935) message] The system which generated this result transmitted reference range : 0.0 - 10.0 /100 WBCs. The refer ence range was not u sed to interpret th is result as normal/abnormal . NRBC x10^3 (test code See_Comment [Auto mated = 5096272552) message] The s ystem which generated this result transmitted reference range : 10*3/?L. The reference range was not used to interpret this result as normal/abnormal . GRAN MAT (NEUT) % 56.8 % (test code = 770-8) IMM GRAN % (test code 0.30 % = 3538240569) LYMPH % (test code = 29.5 % 736-9) MONO % (test code = 4.3 % 5905-5) EOS % (test code = 8.3 % 713-8) BASO % (test code = 0.8 % 706-2) GRAN MAT x10^3(ANC) 3.57 10*3/uL 1.88-7.09 (test code = 5209801926) IMM GRAN x10^3 (test 0.00-0.06 code = 9125650955) LYMPH x10^3 (test code 1.85 10*3/uL 1.32-3.29 = 731-0) MONO x10^3 (test code 0.27 10*3/uL 0.33-0.92 L = 742-7) EOS x10^3 (test code = 0.52 10*3/uL 0.03-0.39 H 711-2) BASO x10^3 (test code 0.05 10*3/uL 0.01-0.07 = 704-7) Lab Interpretation Abnormal (test code = 27946-1) [facility]. METABOLIC PANEL ([id number])2022-04-26 15:12:13 Test Item Value Reference Range Interpretation Comments NA (test code = 141 mmol/L 135-145 5716221638) K (test code = 3.4 mmol/L 3.5-5.0 L 8072064127) CL (test code = 104 mmol/L 98-108 7081983608) CO2 TOTAL (test code = 23 mmol/L 23-31 1631219822) AGAP (test code = 2-16 2169921866) BUN (test code = 9 mg/dL 7-23 4389145398) GLUCOSE (test code = 101 mg/dL 70-110 5353782703) CREATININE (test code = 0.82 mg/dL 0.50-1.04 2425879973) TOTAL BILI (test code = 0.7 mg/dL 0.1-1.5 6515521816) CALCIUM (test code = 9.3 mg/dL 8.6-10.6 1566420104) T PROTEIN (test code = 8.1 g/dL 6.3-8.2 8182715460) ALBUMIN (test code = 4.7 g/dL 3.5-5.0 8365506797) ALK PHOS (test code = 108 U/L 34-122 0467279217) ALTv (test code = 24 U/L 5-35 1742-6) AST(SGOT) (test code = 49 U/L 13-40 H 7183609272) eGFR (test code = mL/min/1.73m2 7298324055) WESLEY (test code = WESLEY) Association of [...] tests). Lab Interpretation Abnormal (test code = 96834-4) [facility] [id number] 14:45:00 Test Item Value Reference Range Interpretation Comments POCT PREG (test code = 1605) negative On board controls acceptable with present C Line (test code = 3574) POCT PREG LOT # (test code = 3575) [id number] POCT PREG TEST DATE (test 08/11/2023 code = 3576) Lab Interpretation (test code = Normal 00598-5) [facility] [id number] 01:22:00 Test Item Value Reference Range Interpretation Comments POCT PREG (test code = 1605) Negative On board controls acceptable with Present C Line (test code = 3574) POCT PREG LOT # (test code = 3575) [id number] POCT PREG TEST DATE (test 08-11-2023 code = 3576) Lab Interpretation (test code = Normal 49029-9) [facility] METABOLIC PANEL (NA, K, CL, CO2, GLUCOSE, BUN, CREATININE, CA)2022-04-07 23:01:10 Test Item Value Reference Range Interpretation Comments NA (test code = 138 mmol/L 135-145 5227578170) K (test code = 4.3 mmol/L 3.5-5.0 3602604899) CL (test code = 107 mmol/L 98-108 1212264957) CO2 TOTAL (test code = 20 mmol/L 23-31 L 7434272265) AGAP (test code = 2-16 4949805488) BUN (test code = 9 mg/dL 7-23 6609437606) GLUCOSE (test code = 204 mg/dL 70-110 H 2753897211) CREATININE (test code = 0.74 mg/dL 0.50-1.04 7441845851) CALCIUM (test code = 9.1 mg/dL 8.6-10.6 5133861015) eGFR (test code = mL/min/1.73m2 4030808546) WESLEY (test code = WESLEY) Association of [...] tests). Lab Interpretation Abnormal (test code = 52659-0) [facility] WITH [id number] 22:57:34 Test Item Value Reference Range Interpretation [...] RDW-SD (test code = 42.9 fL 39.0-49.9 34323-9) RDW-CV (test code = 13.4 % 12.0-15.5 788-0) PLT (test code = See_Comment H [Automated 777-3) message] The sy stem which generated this result transmitted reference range : 166 - 358 10*3/ ?L. The reference r david was not used to interpret this result as normal/abnormal . MPV (test code = 8.9 fL 9.5-12.9 L 54876-3) NRBC/100 WBC (test See_Comment [Automat ed code = 2222173421) message] The system which generated this result transmitted reference range : 0.0 - 10.0 /100 WBCs. The refer ence range was not u sed to interpret th is result as normal/abnormal . NRBC x10^3 (test code See_Comment [Auto mated = 8454142203) message] The s ystem which generated this result transmitted reference range : 10*3/?L. The reference range was not used to interpret this result as normal/abnormal . GRAN MAT (NEUT) % 88.7 % (test code = 770-8) IMM GRAN % (test code 0.70 % = 8857845493) LYMPH % (test code = 9.4 % 736-9) MONO % (test code = 0.9 % 5905-5) EOS % (test code = 0.1 % 713-8) BASO % (test code = 0.2 % 706-2) GRAN MAT x10^3(ANC) 7.81 10*3/uL 1.88-7.09 H (test code = 9963508041) IMM GRAN x10^3 (test 0.06 10*3/uL 0.00-0.06 code = 1496090794) LYMPH x10^3 (test code 0.83 10*3/uL 1.32-3.29 L = 731-0) MONO x10^3 (test code 0.08 10*3/uL 0.33-0.92 L = 742-7) EOS x10^3 (test code = 0.03-0.39 L 711-2) BASO x10^3 (test code 0.01-0.07 = 704-7) Lab Interpretation Abnormal (test code = 68188-3) [facility] [id number] 14:07:00 Test Item Value Reference Range Interpretation Comments POCT PREG (test code = 1605) negative On board controls acceptable with present C Line (test code = 3574) POCT PREG LOT # (test code = 3575) [id number] POCT PREG TEST DATE (test 08/11/2023 code = 3576) Lab Interpretation (test code = Normal 73602-6) [facility] [id number] 13:52:00 Test Item Value Reference Range Interpretation Comments POCT PREG (test code = 1605) negative On board controls acceptable with C present Line (test code = 3574) Lab Interpretation (test code = Normal 84838-6) [facility] [id number] 14:59:00 Test Item Value Reference Range Interpretation Comments POCT PREG (test code = 1605) negative On board controls acceptable with yes C Line (test code = 3574) POCT PREG LOT # (test code = 3575) [id number] POCT PREG TEST DATE (test 07/11/2023 code = 3576) Lab Interpretation (test code = Normal 89692-3) [facility]. METABOLIC PANEL (15578)2022 17:51:43 Test Item Value Reference Range Interpretation Comments NA (test code = 139 mmol/L 135-145 9220851034) K (test code = 4.1 mmol/L 3.5-5 0842350298) CL (test code = 104 mmol/L 98-108 5879757536) CO2 TOTAL (test code = 22 mmol/L 23-31 L 9293570018) AGAP (test code = 2-16 5713981448) BUN (test code = 7 mg/dL 7-23 7556693987) GLUCOSE (test code = 114 mg/dL 70-110 H 3150973013) CREATININE (test code = 0.69 mg/dL 0.5-1.04 9475855611) TOTAL BILI (test code = 0.4 mg/dL 0.1-1.7 5762865824) CALCIUM (test code = 9.7 mg/dL 8.6-10.6 5732862443) T PROTEIN (test code = 7.2 g/dL 6.3-8.2 2930722871) ALBUMIN (test code = 4.6 g/dL 3.5-5 5401149296) ALK PHOS (test code = 65 U/L 34-122 4688703913) ALTv (test code = 15 U/L 5-35 1742-6) AST(SGOT) (test code = 19 U/L 13-40 3193085992) eGFR (test code = mL/min/1.73m2 3044319256) WESLEY (test code = WESLEY) Association of [...] tests). Lab Interpretation Abnormal (test code = 16677-2) [facility] WITH [id number] 17:40:24 Test Item Value Reference Range Interpretation Comments WBC (test code = See_Comment [Automated 2135-2) message] The sy stem which generated this result transmitted reference range : 4.30 - 11.10 10*3/?L. The reference range was not used to interpret this result as normal/abnormal . RBC (test code = See_Comment [Automated 246-8) message] The sy stem which generated this [...] RDW-SD (test code = 43.1 fL 39-49.9 57312-0) RDW-CV (test code = 13.2 % 12-15.5 788-0) PLT (test code = See_Comment [Automated 777-3) message] The sy stem which generated this result transmitted reference range : 166 - 358 10*3/ ?L. The reference r david was not used to interpret this result as normal/abnormal . MPV (test code = 9.5 fL 9.5-12.9 41671-9) NRBC/100 WBC (test See_Comment [Automat ed code = 4609936385) message] The system which generated this result transmitted reference range : 0.0 - 10.0 /100 WBCs. The refer ence range was not u sed to interpret th is result as normal/abnormal . NRBC x10^3 (test code See_Comment [Auto mated = 2356314396) message] The s ystem which generated this result transmitted reference range : 10*3/?L. The reference range was not used to interpret this result as normal/abnormal . GRAN MAT (NEUT) % 57.8 % (test code = 770-8) IMM GRAN % (test code 0.20 % = 1785175369) LYMPH % (test code = 30.8 % 736-9) MONO % (test code = 5.1 % 5905-5) EOS % (test code = 5.6 % 713-8) BASO % (test code = 0.5 % 706-2) GRAN MAT x10^3(ANC) 3.61 10*3/uL 1.88-7.09 (test code = 7893610828) IMM GRAN x10^3 (test 0-0.06 code = 9910489835) LYMPH x10^3 (test code 1.92 10*3/uL 1.32-3.29 = 731-0) MONO x10^3 (test code 0.32 10*3/uL 0.33-0.92 L = 742-7) EOS x10^3 (test code = 0.35 10*3/uL 0.03-0.39 711-2) BASO x10^3 (test code 0.03 10*3/uL 0.01-0.07 = 704-7) Lab Interpretation Abnormal (test code = 03195-2) [facility] [id number] 17:27:00 Test Item Value Reference Range Interpretation Comments POCT PREG (test code = 1605) negative On board controls acceptable with present C Line (test code = 3574) POCT PREG LOT # (test code = 3575) [id number] POCT PREG TEST DATE (test code = 3576) Lab Interpretation (test code = Normal 49260-7) [facility] 12:45:21 Test Item Value Reference Range Interpretation Comments LIPASE (test code = 5646702525) 41 U/L 0-220 Lab Interpretation (test code = Normal 52825-8) [facility] [id number] 10:57:00 Test Item Value Reference Range Interpretation Comments POCT PREG (test code = 1605) Negative On board controls acceptable with Present C Line (test code = 3574) POCT PREG LOT # (test code = 3575) [id number] POCT PREG TEST DATE (test 03/12/2023 code = 3576) Lab Interpretation (test code = Normal 97030-9) [facility] (NA, K, CL, CO2, GLUCOSE, BUN, CREATININE, CA)2022-01-18 10:56:51 Test Item Value Reference Range Interpretation Comments NA (test code = 137 mmol/L 135-145 3968992427) K (test code = 4.6 mmol/L 3.5-5 Slight 4513971958) hemolysis CL (test code = 108 mmol/L 98-108 3034198585) CO2 TOTAL (test code 22 mmol/L 23-31 L = 7320028278) AGAP (test code = 2-16 6912839576) BUN (test code = 11 mg/dL 7-23 Slight 2641113779) hemolysis GLUCOSE (test code = 83 mg/dL 70-110 0218151375) CREATININE (test code 0.68 mg/dL 0.5-1.04 = 6697113901) CALCIUM (test code = 8.8 mg/dL 8.6-10.6 5047107031) eGFR (test code = mL/min/1.73m2 0340683187) WESLEY (test code = WESLEY) Association of [...] tests). Lab Interpretation Abnormal (test code = 78466-7) [facility]92326[facility] (ALB,T.PRO,BILI T,BU/BC,ALT,AST,ALK PHOS)2022-01-18 10:56:51 Test Item Value Reference Range Interpretation Comments TOTAL BILI (test code = 4110510358) 0.6 mg/dL 0.1-1.1 BILI UNCON (test code = 4804455392) 0.1 mg/dL 0.1-1.1 BILI CONJ (test code = 4504789187) 0.0 mg/dL 0-0.3 T PROTEIN (test code = 5021148904) 8.6 g/dL 6.3-8.2 H ALBUMIN (test code = 6832462762) 5.1 g/dL 3.5-5 H ALK PHOS (test code = 8984642890) 79 U/L 34-122 ALTv (test code = 1742-6) 117 U/L 5-35 H AST(SGOT) (test code = 9640485284) 163 U/L 13-40 H Lab Interpretation (test code = Abnormal 78062-2) [facility], [id number] 10:54:25 Test Item Value Reference Range Interpretation Comments PREG SERUM (test code Negative = 8174320034) WESLEY (test code = WESLEY) Less than 10 IU/L. ?If low titer or ectopic is suspected, resubmit specimen in 48-[address] [facility] [id number] 10:40:49 Test Item Value Reference Range Interpretation Comments WBC (test code = See_Comment [Automated 1164-2) message] The sy stem which generated this result transmitted reference range : 4.30 - 11.10 10*3/?L. The reference range was not used to interpret this result as normal/abnormal . RBC (test code = See_Comment [Automated 945-8) message] The sy stem which generated this [...] RDW-SD (test code = 45.3 fL 39-49.9 63066-0) RDW-CV (test code = 14.5 % 12-15.5 788-0) PLT (test code = See_Comment [Automated 137-3) message] The sy stem which generated this result transmitted reference range : 166 - 358 10*3/ ?L. The reference r david was not used to interpret this result as normal/abnormal . MPV (test code = 9.5 fL 9.5-12.9 29945-6) NRBC/100 WBC (test See_Comment [Automat ed code = 5464415211) message] The system which generated this result transmitted reference range : 0.0 - 10.0 /100 WBCs. The refer ence range was not u sed to interpret th is result as normal/abnormal . NRBC x10^3 (test code See_Comment [Auto mated = 5668675459) message] The s ystem which generated this result transmitted reference range : 10*3/?L. The reference range was not used to interpret this result as normal/abnormal . GRAN MAT (NEUT) % 47.6 % (test code = 770-8) IMM GRAN % (test code 0.60 % = 4151300311) LYMPH % (test code = 39.9 % 736-9) MONO % (test code = 5.9 % 5905-5) EOS % (test code = 5.3 % 713-8) BASO % (test code = 0.7 % 706-2) GRAN MAT x10^3(ANC) 4.45 10*3/uL 1.88-7.09 (test code = 1942804338) IMM GRAN x10^3 (test 0.06 10*3/uL 0-0.06 code = 7628638218) LYMPH x10^3 (test code 3.74 10*3/uL 1.32-3.29 H = 731-0) MONO x10^3 (test code 0.55 10*3/uL 0.33-0.92 = 742-7) EOS x10^3 (test code = 0.50 10*3/uL 0.03-0.39 H 711-2) BASO x10^3 (test code 0.07 10*3/uL 0.01-0.07 = 704-7) Lab Interpretation Abnormal (test code = 09557-0) [facility] [id number] 18:31:00 Test Item Value Reference Range Interpretation Comments POCT PREG (test code = 1605) Negative On board controls acceptable with C Yes Line (test code = 3574) POCT PREG LOT # (test code = 3575) POCT PREG TEST DATE (test code = 3576) [facility]CIFIC [id number] 18:31:00 Test Item Value Reference Range Interpretation [...] Trace Negative - Negative [facility] Consult Notes Date/Time Note Provider Source 2023-01-12 00:12:43 [id number]:12:43Associated Order(s): [facility] CONSULT GENERAL SURGERY TRAUMA/ACS Surgery Consult NoteAttending: Christianoon for Consult: gallbladder fossa fluid collection s/p lap pasquale History of Present Illness:Natanael Dyson is a 27 year old female, with past medical history of nephrolithiasis, migraines, anxiety now presenting for surgical evaluation of RUQ pain associated with a 4.6 x 2.6 x 2.5cm gallbladder fossa fluid collection s/p elective lap pasquale for symptomatic cholelithiasis 1.5 months ago at OSH ([place]). Pt states that she has had persistent RUQ pain with nausea and po intolerance along with intermittent chills and vomiting since surgery. Was seen by PCP and instructed to come to [facility] ED for further evaluation. Review of [...] N/A 07/21/2019 Surgeon: Prasanna Vargas MD; Location: [facility] Location TUBAL LIGATION N/A 07/21/2019 Surgeon: Prasanna Vargas MD; Location: [facility] Location Family History:Family [...] skin once every month. 1 mL 3 Clhvlfnjke-Qlfvyqrrddzso-Qzrb (FIORICET) 50-300-40 mg per capsule Take 1 [...] ABDOMEN PELVIS W CONTRASTResult Date: 01/11/2023ORDERING CLINICIAN: MIGUEL ÁNGEL SIDDIQUI TECHNIQUE: Multidetector helical scanning of the [...] 03/18/2021 Trouble in sleeping 09/06/2020 Tachycardia 04/12/2020 Assessment:Natanael Dyson is a 27 year old female, with past medical history of nephrolithiasis, migraines, anxiety now presenting for surgical evaluation of RUQ pain associated with a 4.6 x 2.6 x 2.5cm gallbladder fossa fluid collection c/w abscess s/p elective lap pasquale for symptomatic cholelithiasis 1.5 months ago at OSH ([place]).Plan:[facility] serviceConsult IR for percutaneous drainage of [...] nausea, anorexia since lap pasquale at [facility] on 12/01/22 with noted venous bleeding from [...] Surgery, and Surgical Critical Care In-house Pager: [phone] [id number], Amy1.2.840.107347.1.13.104.2.7.2.084695Qmw vczTvuZO2481-02-32J01:39:26Consult noteTXT1.2.840.060119.1.13.104.2.7.2.55908 9|[id number] for patient dejp27055-9Nqbzenq noteLN[address]Ac[id number] YTVWSYOPVVRYEGRU4327-53-44Z79:39:261.2.840 .668408.1.72.3.15|1.2.840.383122.1.13.104. 2.7.2.727879_[id number] History and Physical Notes Date/Time Note Provider Source 2023-01-12 01:05:04 7475-90-04K82:05:04Formatting of this note [facility] might be different from the original.01/12/23 1:05 AM Please refer to consult note written by Rodolfo Riggins DO on 01/12/23 for complete H&P.NITESH Gandara-2 Surgery Resident ssociated attestation - Mirella Vergara MD - 01/12/2023 1:47 AM CDT Pbisk00433-0Ftkapcc and physical [id number], Amy1.2.840.405587.1.13.104.2.7.2.362328Ota jvrPflUC8801-07-43E70:47:52History and physical noteTXT1.2.840.049302.1.13.104.2.7.2.15202 9|[id number] for patient sbnh39899-6Qhlzdvf and physical noteLNUT84 [place] StreetYpfxZamqxqcfnBvzisvttdYTFB6809525292XOOFLZ PMFQKAYLXMBGGUCY7862-75-70V26:47:521.2.840 .443630.1.72.3.15|1.2.840.697446.1.13.104. 2.7.2.727879_[id number] Notes Date/Time Note Provider Source 2023-01-16 10:56:45 9594-17-08E21:56:45Formatting Marlys hoover OY[employer] CULTURIST [facility] of this note is different from the original.TRANSITIONAL CARE MANAGEMENT ASSESSMENT01/16/2023 Natanael DysonFureggm183146KQivri Nelia Dyson is a 27 year old /White female was admitted on 01/11/[address] She was discharged on 01/15/23 with discharge disposition of HR- Routine Discharge.Admitting Physician: Misty Steele Diagnosis: Postprocedural intraabdominal abscess [T81.43XA]Pt. Verbalized understanding discharge instructions. Plans to f/u with pcp.Linked Episodes Type: Episode: Status: Noted: Resolved: Last update: Updated by: TRANSITION OF CARE tcm Active 01/16/2023 01/16/2023 10:56 AM Marlys Odell LVN Comments: TCM Gbd-kuru-vu-face outreach documentation:Discharge AssessmentChart Assessed: 01/16/23TCM Outreach Completed: 01/16/23Do you have a few minutes to speak with me about how you are doing at home?: YesDischarge InstructionsDo you understand your at-home instructions?: YesMedicationsHave you filled your prescriptions and do you have them in your home? : YesDo you know how to take your medications?: YesCan you provide me with the names or descriptions of any drwz-fdj-zjqhvuq or supplements you are currently taking?: YesSuppliesDid you receive applicable home medical supplies/equipment?: N/AFollow Up AppointmentHas a follow up appointment been scheduled?: YesDo you have any questions about your follow up appointments?: NoAre you able to get to your appointment? Who will be taking you?: Yes (self)Home Health AssistanceHas the home health nurse contacted you since you've been home?: N/ASurvey - RecognitionIs there anything you would like to share about your recent hospitalization, or anyone you would like to recognize?: NoDo you have any suggestions for improvement?: NoDo you have any other questions or concerns at this time?: NoFuture Appointments: 97572-1Onxfdugdd encounter WnrtYP8525-31-82U99:57:41Teleph one encounter NoteTXT1.2.840.515874.1.13.104. 2.7.2.393678|[id number] [facility] seva91070-8CfkrWE151552218Ngapj susana Odell [address] CeztRqbmujjtiTwdkooqbzLGKU58873 49730FNWKBKKVBYNBGIYBFTESRV7328 -09-06T10:57:411.2.840.247166.1 .72.3.15|1.2.840.030995.1.13.10 4.2.7.2.727879_[id number] 2023-01-15 18:18:34 3421-09-51G48:18:34Formatting [facility] of this note might be different from the original.Patient is cleared for discharge. Problem: Infection RiskGoal: Absence of infection01/15/20231817 by Vero Crews RNOutcome: Adequate for discharge01/15/20231817 by Vero Crews RNOutcome: Adequate for discharge01/15/2023 131 by Vero Crews RNOutcome: Progressing as expected Problem: PainGoal: Control of pain at or below patient's documented comfort goal01/15/20231817 by Vero Crews RNOutcome: Adequate for discharge01/15/20231817 by Vero Crews RNOutcome: Adequate for discharge01/15/20231309 by Vero Crews RNOutcome: Progressing as expectedGoal: Reduction in pain sensation01/15/20231817 by Vero Crews RNOutcome: Adequate for discharge01/15/20231817 by Vero Crews RNOutcome: Adequate for discharge01/15/20231309 by Vero Crews RNOutcome: Progressing as expected Problem: Discharge PlanningGoal: Adequate for discharge01/15/20231817 by Vero Crews RNOutcome: Adequate for discharge01/15/20231817 by Vero Crews RNOutcome: Adequate for discharge01/15/20231309 by Vero Crews RNOutcome: Progressing as expectedGoal: Effective communication01/15/20231817 by Vero Crews RNOutcome: Adequate for discharge01/15/20231817 by Vero Crews RNOutcome: Adequate for discharge01/15/20231309 by Vero Crews RNOutcome: Progressing as expected 47645-9Ytkn of care svnlQB4657-95-94T48:18:58Plan of care noteTXT1.2.840.092492.1.13.104. 2.7.2.540306|[id number] ble for patient jdeh05218-2YhurXXRGIZABUV[address]TX[address] 42403MWWCZFQSVOMMJZNAERFBHH0085 -09-05T18:18:581.2.840.727078.1 .72.3.15|1.2.840.622836.1.13.10 4.2.7.2.727879_[id number] 2023-01-15 15:08:00 7944-50-55X22:08:00Formatting Vero llanes RN [facility] of this note might be different from the original.Called outpatient pharmacy and spoke to Maggi. Stated pharmacy will bring patient's medications to her room within 45min to an hour. 72515-1Ehhlp NqhjVS5232-92-82A92:49:16Nurse NoteTXT1.2.840.167333.1.13.104. 2.7.2.145716|[id number] ble for patient utel95576-8Unopv KyzfMJ321310160Bwlglsu R Hanegan RN[address]TXTX[address] 86963SCKGOVOSPXFVENOWPWCMHX8687 -09-05T15:49:161.2.840.294220.1 .72.3.15|1.2.840.740186.1.13.10 4.2.7.2.727879_[id number] 2023-01-15 13:11:00 8715-33-62Y52:11:00Formatting [facility] of this note might be different from the original.Problem: Infection RiskGoal: Absence of infectionOutcome: Progressing as expected Problem: PainGoal: Control of pain at or below patient's documented comfort goalOutcome: Progressing as expectedGoal: Reduction in pain sensationOutcome: Progressing as expected Problem: Discharge PlanningGoal: Adequate for dischargeOutcome: Progressing as expectedGoal: Effective communicationOutcome: Progressing as expected 17927-5Kytd of care plgiEI7043-08-95C94:11:04Plan of care noteTXT1.2.840.431123.1.13.104. 2.7.2.730511|[id number] ble for patient bddh49369-4ObeeWABXQUOSBO[address] StreetTXTX[address] 26212XOCKJEKCFKBGWQISOTCSDR9930 -09-05T13:11:041.2.840.466883.1 .72.3.15|1.2.840.469875.1.13.10 4.2.7.2.727879_[id number] 2023-01-15 06:25:22 1386-44-15N94:25:22Formatting Katy dailey RN [facility] of this note might be different from the original.Problem: Infection RiskGoal: Absence of infectionOutcome: Progressing as expected Problem: PainGoal: Control of pain at or below patient's documented comfort goalOutcome: Progressing as expectedGoal: Reduction in pain sensationOutcome: Progressing as expected Problem: Discharge PlanningGoal: Adequate for dischargeOutcome: Progressing as expectedGoal: Effective communicationOutcome: Progressing as expected 81992-7Gboi of care cpkvEM4789-53-94J20:25:24Plan of care noteTXT1.2.840.532802.1.13.104. 2.7.2.580155|[id number] ble for patient uzzn04169-7LqcxWG471945574Hwghk M Andrews RN[address]TXTX[address] 57064FRYOIJHSLUILSJEMYPRAFU1281 -09-05T06:25:241.2.840.671939.1 .72.3.15|1.2.840.780465.1.13.10 4.2.7.2.727879_[id number] 2023-01-14 09:27:52 8915-30-00H50:27:52Formatting Charles phan RN [facility] of this note might be different from the original.Problem: Infection RiskGoal: Absence of infectionOutcome: Progressing as expected Problem: PainGoal: Control of pain at or below patient's documented comfort goalOutcome: Progressing as expectedGoal: Reduction in pain sensationOutcome: Progressing as expected Problem: Discharge PlanningGoal: Adequate for dischargeOutcome: Progressing as expectedGoal: Effective communicationOutcome: Progressing as expected 31792-7Mzrs of care oxbqHH6057-15-98E54:27:55Plan of care noteTXT1.2.840.266596.1.13.104. 2.7.2.548348|[id number] [facility] bbqg35473-2BvutQB779533401Slck W Martinez RNUT[facility]ILL[facility] - [address] WrtfBcbudipdvNrbyhekyaACAY09786 16586GKAAASJEIERGBMRSHQDRJF2798 -09-04T09:27:551.2.840.495997.1 .72.3.15|1.2.840.430066.1.13.10 4.2.7.2.727879_[id number] 2023-01-13 22:20:47 8102-74-72V06:20:47Formatting [facility] of this note might be different from the original.Notified MD by page due to double dose of Tylenol being given. Per MD Brito no more Tylenol to be given for tonight. 98618-3Esbdy ZhieQK6732-88-65D66:25:15Nurse NoteTXT1.2.840.838584.1.13.104. 2.7.2.936498|[id number] ble for patient xkgi38241-8QbynMQAQCYXAND - Vxmhyo484 [facility]TXTX[address] 32830OMNHPIYQUTLVDSCMLOFGJB5017 -09-03T22:25:151.2.840.718205.1 .72.3.15|1.2.840.767402.1.13.10 4.2.7.2.727879_[id number] 2023-01-13 21:55:20 5123-01-94X15:55:20Formatting [facility] of this note might be different from the original.Problem: Infection RiskGoal: Absence of infectionOutcome: Progressing as expected Problem: PainGoal: Control of pain at or below patient's documented comfort goalOutcome: Progressing as expectedGoal: Reduction in pain sensationOutcome: Progressing as expected Problem: Discharge PlanningGoal: Adequate for dischargeOutcome: Progressing as expectedGoal: Effective communicationOutcome: Progressing as expected 62088-3Ljuw of care zsjzTV5022-28-46C89:55:38Plan of care noteTXT1.2.840.802852.1.13.104. 2.7.2.458464|[id number] ble for patient hasg52003-3PcqhQDXENBQNID[address] 29735LDSBSAVUBMFAYJPFAIOVZG7012 -09-03T21:55:381.2.840.771279.1 .72.3.15|1.2.840.521084.1.13.10 4.2.7.2.727879_[id number] 2023-01-13 08:20:43 0532-40-21R40:20:43Formatting [facility] of this note might be different from the original.Problem: Infection RiskGoal: Absence of infectionOutcome: Progressing as expected Problem: PainGoal: Control of pain at or below patient's documented comfort goalOutcome: Progressing as expectedGoal: Reduction in pain sensationOutcome: Progressing as expected Problem: Discharge PlanningGoal: Adequate for dischargeOutcome: Progressing as expectedGoal: Effective communicationOutcome: Progressing as expected 73354-6Cfzq of care elynVC1973-60-39N18:20:46Plan of care noteTXT1.2.840.066026.1.13.104. 2.7.2.181173|[id number] ble for patient jykn58063-0DuiyIPVRUBSBMI[address] 15893BJQVMMHOPAPHCSCZZNUSLF8074 -09-03T08:20:461.2.840.656817.1 .72.3.15|1.2.840.057754.1.13.10 4.2.7.2.727879_[id number] 2023-01-12 20:10:08 7497-26-39Y40:10:08Formatting [facility] of this note might be different from the original.Problem: Infection RiskGoal: Absence of infectionOutcome: Progressing as expected Problem: PainGoal: Control of pain at or below patient's documented comfort goalOutcome: Progressing as expectedGoal: Reduction in pain sensationOutcome: Progressing as expected Problem: Discharge PlanningGoal: Adequate for dischargeOutcome: Progressing as expectedGoal: Effective communicationOutcome: Progressing as expected 86362-3Rsme of care jiiyCL1721-36-49I28:10:14Plan of care noteTXT1.2.840.160044.1.13.104. 2.7.2.884348|[id number] ble for patient igsn97332-0ZwrjJZARMGBUJI[address]TX[place] 95336GSYDOEYONBFVLKJDJUQNIE3651 -09-02T20:10:141.2.840.933578.1 .72.3.15|1.2.840.327434.1.13.10 4.2.7.2.727879_[id number] 2023-01-12 09:28:38 0949-54-06Z50:28:38FormCar[facility]as [facility] this note might be different from the original.Problem: Infection RiskGoal: Absence of infectionOutcome: Progressing as expected Problem: PainGoal: Control of pain at or below patient's documented comfort goalOutcome: Progressing as expectedGoal: Reduction in pain sensationOutcome: Progressing as expected Problem: Discharge PlanningGoal: Adequate for dischargeOutcome: Progressing as expectedGoal: Effective communicationOutcome: Progressing as expected 17215-8Kpnl of care lapjTK1172-73-76D98:28:40Plan of care noteTXT1.2.840.164772.1.13.104. 2.7.2.924825|[id number] ble for patient xajf61367-3LpuyKWMRIPFHHG[address]vdGal[address]Gal[place]on[place] 09700KWFMPIOARHVQWTFRETSPVK3291 -09-02T09:28:401.2.840.993057.1 .72.3.15|1.2.840.965606.1.13.10 4.2.7.2.727879_[id number] 2023-01-12 05:17:00 1769-92-69F88:17:00FormCar[facility] of this note might be different from the original.Problem: Infection RiskGoal: Absence of infectionOutcome: Progressing as expected Problem: PainGoal: Control of pain at or below patient's documented comfort goalOutcome: Progressing as expectedGoal: Reduction in pain sensationOutcome: Progressing as expected Problem: Discharge PlanningGoal: Adequate for dischargeOutcome: Progressing as expectedGoal: Effective communicationOutcome: Progressing as expected 76988-9Rydn of care cwppMB7785-83-87F42:17:08Plan of care noteTXT1.2.840.393407.1.13.104. 2.7.2.833903|[id number] ble for patient bqun47421-3ZxcnALVFNNPEIZ[address]TX[address] 78382NBQRBJTLINHRIWKAYUKPAD4561 -09-02T05:17:081.2.840.260776.1 .72.3.15|1.2.840.537278.1.13.10 4.2.7.2.727879_[id number] 2023-01-12 01:43:06 9104-83-49W64:43:06Formatting Melvin Villegas RN [facility] of this note might be different from the original.Report to lisy CURRIE on 9C. Pt awaiting transport 47671-6Flawoxbai department CumlXU7746-41-91M49:43:18Emerge ncy department NoteTXT1.2.840.870172.1.13.104. 2.7.2.452099|[id number] ble for patient kwcw10567-4PyufYD896985781Cuzdq McDougle RN[address]TXTX[address] 31562BWHZNDAVTDKKXBUWLBQKYI5124 -09-02T01:43:181.2.840.132370.1 .72.3.15|1.2.840.980353.1.13.10 4.2.7.2.727879_[id number] 2023-01-12 01:10:30 7859-95-24V64:10:30Formatting [facility] of this note might be different from the original.Attempted report, nurse unavailable, left callback number 48707-5Pklggzgzt[address] AagrUN4573-84-83X51:10:42[facility] department NoteTXT1.2.840.654059.1.13.104. 2.7.2.760136|[id number] ble for patient wmrj55543-4DoyyZVNEDBYSXT13 [address]TX[address] 15887GSNQDFVYDNDIBZJUYSRXET6717 -09-02T01:10:421.2.840.057733.1 .72.3.15|1.2.840.981300.1.13.10 4.2.7.2.727879_[id number] 2023-01-12 00:24:49 7103-59-30U35:24:49Formatting [facility] of this note might be different from the original.Surgery at bedside 98959-3Xsmrdpwdf[address] [place] [address] GdgjXI8612-83-49N91:24:56[facility] department NoteTXT1.2.840.205429.1.13.104. 2.7.2.484337|[id number] ble for patient ntgl89206-0SkpnDCBXITKEUB13 [address] 87884JXZKTQLWSEUCNARXOMDXNA2420 -09-02T00:24:561.2.840.701695.1 .72.3.15|1.2.840.009832.1.13.10 4.2.7.2.727879_[id number] 2023-01-11 23:08:11 9578-77-30V12:08:11Formatting [facility] Health of this note might be different from the original. made aware of pt increased pain and nausea [address] DfffFB9070-00-92X45:08:21[facility] NoteTXT1.2.840.231965.1.13.104. 2.7.2.054020|[id number] ble for patient qhmi56190-4PbprFSIWBDZTJJ13 [address] 76591UJKTWUXEFXVERZUGFEONXB3027 -09-01T23:08:211.2.840.898659.1 .72.3.15|1.2.840.853462.1.13.10 4.2.7.2.727879_[id number] 2023-01-11 22:34:38 4948-42-99V94:34:38Formatting [facility] of this note might be different from the original.Pt return from CT, warm blanket given 03139-4Waoqpzwfm[address] [place] [address] IenxDE5001-71-06Q36:34:49[facility] NoteTXT1.2.840.809338.1.13.104. 2.7.2.791977|[id number] ble for patient lyhq47410-9DrqoAZPQBHSGGL[address]TX[address] 51181KZCTETRPXRSXTISOOBLEFC2446 -09-01T22:34:491.2.840.562327.1 .72.3.15|1.2.840.909066.1.13.10 4.2.7.2.727879_[id number] 2023-01-11 22:18:01 8169-03-17X83:18:01Formatting [facility] Health of this note might be different from the original.Pt to CT scan 72459-9Ovfazgkpw[address] [place] [address] OwrgLN9831-37-67G77:18:08[facility] department NoteTXT1.2.840.627279.1.13.104. 2.7.2.434255|[id number] ble for patient ydxr15648-6DnfkJMCJOOTRUE91 [address]vestonTXTX[address] 18880RDEQMSZIOILJDOSKTOJEVK1249 -09-01T22:18:081.2.840.280188.1 .72.3.15|1.2.840.192692.1.13.10 4.2.7.2.727879_[id number] 2023-01-11 21:30:08 1750-71-18O17:30:08Formatting [facility] of this note might be different from the original.Natanael Dyson is a 27 year old female who presents to ER for cc of RUQ LUQ abdominal pain radiating to RLQ, persistent nausea and diarrhea x 2 weeks. Pt had gallbladder removed and a portion of liver removed 1 mo ago. Pt followed up w her PCP, showing elevated liver enzymes, CT scan showing inflamed liver. Denies vomiting, denies blood in stool. 73223-9Nkglzpsnd department RyzdAM6269-01-69Q53:32:39[facility] department NoteTXT1.2.840.615641.1.13.104. 2.7.2.932689|[id number] ble for patient cfne49273-4LbkxEHTQENSKYU[address] 59701DRNXHBYDAOARPWQVHPXNFF1246 -09-01T21:32:391.2.840.336783.1 .72.3.15|1.2.840.083595.1.13.10 4.2.7.2.727879_[id number] 2023-01-11 21:03:38 6799-90-98R44:03:38Formatting [facility] Health of this note might be different from the original.Natanael Dyson is a 27 year old female here today c/o abdominal pain x 2 days. Pt denies N/V but reports diarrhea. Pt reports "9/10" pain at this time. Pt reports pain travels down right side abdomen. Pt is A&Ox4, NAD Noted. RR even/unlabored. 77941-8Kzacyptdi department Triage emawOG7975-47-09C60:05:23[facility] department Triage noteTXT1.2.840.257632.1.13.104. 2.7.2.445437|[id number] ble for patient tvjz92167-1Aiccepsyl department NoteLN[address]vdGalvestonGalvestonTXTX[address] 16450ASCDRSJPAKUPMLNAXWMIES1278 -09-01T21:05:231.2.840.805343.1 .72.3.15|1.2.840.245089.1.13.10 4.2.7.2.727879_[id number] 2023-01-11 20:44:00 8478-78-73D43:44:00Formatting [facility] of this note is different from the original.[facility] Emergency Department NotePatient Name: Natanael DysonDate of : 1995 27 year old femaleTreatment Room: [address] [place], [place] [address]Medical Record Number: [id number] Care Physician: Luke BakerPatient Escorted by: Family [5]Mode of Arrival: Personal means [1]EMS 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 Patient states she has had constant pain that is progressively worsening since her cholecystectomy 1 month ago that was done at [facility]. Due to the worsening discomfort patient has, for further evaluation at [facility]. Patient states that during her cholecystectomy she had a partial liver resection and is not sure why. Patient describes having a sensation of a "knife in my belly" that is sharp has gotten worse now it is 7 out of 10 pain that radiates to her back. Patient states it is worse when she walks and takes deep breaths and is better when she sits up. Patient has discontinued [place] and anxiety medication due to concern for her liver. 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 Toradol [Ketorolac] Hives Latex Rash Reglan [Metoclopramide Hcl] Anxiety Patient says she gets figity, angry and mean Past Social History:Tobacco Use Never smoked or used smokeless tobacco. Vaping Use Never used Alcohol Use Not Currently. Drug Use Never. Sexual Activity Sexually active; Partners: Male; Control/Protection: Surgical. Past Surgical History:Past Surgical History: Procedure Laterality Date SECTION 2014 SECTION N/A 07/21/2019 Surgeon: Prasanna Vargas MD; Location: [facility] Location TUBAL LIGATION N/A 07/21/2019 Surgeon: Prasanna Vargas MD; Location: [facility] Location Review of Systems: Review of Systems Constitutional: Negative for appetite change, fatigue and fever. Respiratory: Negative for chest tightness and shortness of breath. Cardiovascular: Negative for chest pain and palpitations. Gastrointestinal: Positive for abdominal pain and diarrhea. Negative for abdominal distention, blood in stool, constipation, nausea and vomiting. Musculoskeletal: Negative for back pain and joint swelling. Neurological: Negative for dizziness, weakness, light-headedness and headaches. All other systems reviewed and are negative.Physical Exam: ED Triage Vitals [01/11/232102] Weight 68 kg (150 lb) Actual or estimated Height BP (!) 135/91 Pulse 104 Resp 18 Temp 36.8 ?C (98.3 ?F) Temp source Oral SpO2 96 % Measured on Room air Physical ExamConstitutional: General: She is not in acute distress. Appearance: Normal appearance. She is normal weight. She is not ill-appearing, toxic-appearing or diaphoretic. HENT: Head: Normocephalic and atraumatic. Cardiovascular: Rate and Rhythm: Normal rate and regular rhythm. Pulses: Normal pulses. Heart sounds: No murmur heard. No gallop. Pulmonary: Effort: Pulmonary effort is normal. No respiratory distress. Breath sounds: Normal breath sounds. No wheezing or rales. Abdominal: General: Abdomen is flat. Bowel sounds are normal. There is no distension. Palpations: Abdomen is soft. There is no shifting dullness, fluid wave, hepatomegaly, splenomegaly or mass. Tenderness: There is abdominal tenderness in the right upper quadrant, right lower quadrant and epigastric area. There is no guarding or rebound. Negative signs include Ayoub's sign and McBurney's sign. Hernia: No hernia is present. Musculoskeletal: Cervical back: Normal range of motion and neck supple. Skin: General: Skin is warm and dry. Capillary Refill: Capillary refill takes less than 2 seconds. Neurological: General: No focal deficit present. Mental Status: She is alert and oriented to person, place, and time. Mental status is at baseline. Radiology:No orders to display Lab Results:Lab Results URINALYSIS - Abnormal Result Value Ref Range APPEARANCE Hazy (*) Clear COLOR Yellow Yellow PH 5.0 4.8 - 8.0 SP GRAVITY 1.015 1.003 - 1.030 GLU U QUAL Normal Normal BLOOD 1+ (*) Negative KETONES Negative Negative PROTEIN Negative Negative UROBILIN Normal Normal BILIRUBIN Negative Negative NITRITE Negative Negative LEUK ANJELICA Negative Negative RBC/HPF 19 (*) 0 - 3 HPF WBC/HPF 1 0 - 5 HPF BACTERIA Negative Negative MUCOUS Slight (*) Negative LPF SQ EPITH 5 (*) <=2 HPF POCT TEST - Normal POCT PREG Negative On board controls acceptable with C Line Yes POCT PREG LOT # [id number] POCT PREG TEST DATE 05/15/2024 LIPASE - Normal LIPASE 41 0 - 220 U/L COMP. METABOLIC PANEL (69960) TOTAL BETA HCG ASSAY EXTRA TUBE ORANGE EXTRA TUBE LAV EKG:If EKG completed, see Procedure Note. Orders and Treatments:Orders Placed This Encounter Procedures CT ABDOMEN PELVIS W CONTRAS T POCT TEST URINALYSIS LIPASE COMP. METABOLIC PANEL (89647) TOTAL BHCG (QUANTITATIVE) Orders Placed This Encounter Medications NaCl 0.9% (NS) bolus infusion 1,000 mL morpHINE (4 mg/mL) injection 4 mg maalox:diphenhydrAMINE:lidocai ne 2 % viscous 1:1:1 (FIRST-MOUTHWASH BLM) oral suspension 15 mL ondansetron (ZOFRAN (PF)) injection 4 mg First Provider Eval:ED Events Date/Time Event User Comments 01/11/232104 Medical Screening Begins ZEHRA GARCÍA -- 01/11/232104 First Provider Evaluation ZEHRA GARCÍA -- No notes of EC Admission Criteria type on file.ED COURSEDiagnosis/Impression as of 01/12/23 0718 Abdominal pain, unspecified abdominal location Abscess of gallbladder Procedures: ProceduresMDM:Medical Decision MakingPatient is a 27-year-old female with past medical history previously stated is evaluated emergency room for concern for soft tissue entrapment secondary to adhesions versus ectopic versus ovarian torsion versus pancreatitis. Patient is sitting uncomfortably at bedside and is nontoxic-appearing. Physical exam is pertinent for epigastric, right upper and lower quadrant tenderness to palpation. Morphine, Zofran given for pain. IV fluids for month-long history of diarrhea and decreased p.o. CBC overall stable for patient, without signs of anemia or acute infection. CMP overall stable for patient, less likely for electrolyte derangement. Lipase within range, less likely for pancreatitis. Beta hCG and POC test are negative, less likely for ectopic . UA exhibits a dirty sample. CT of the abdomen shows small fluid and air collection in the gallbladder fossa, concerning for abscess. Upon reassessment patient is uncomfortable with increased abdominal pain after going through CT imaging. General surgery consulted, appreciate the recs. Plan to admit to surgery for drainage of abscess and continued management of symptoms.Problems Addressed:Abdominal pain, unspecified abdominal location: acute illness or injury that poses a threat to life or bodily functionsAmount and/or Complexity of Data ReviewedLabs: ordered.Radiology: ordered.RiskPrescription drug management.Parenteral controlled substances. Flowsheet Documentation: Scoring Tools: No data recorded Disposition/Condition:ED Disposition None Discharge Medications:Patient's Medications START taking these medications No medications on file CONTINUE taking these medications which have NOT CHANGED ALBUTEROL 90 MCG/ACTUATION INHALER Inhale 2 Puffs every 6 (six) hours as needed for Wheezing or Shortness of Breath. BACLOFEN 10 MG TABLET Take 1 tablet by mouth every 6 (six) hours as needed. UADKTVNVQA-VGJRKAYOIOBUL-YOUI (FIORICET) 50-300-40 MG PER CAPSULE Take 1 capsule by mouth every 6 (six) hours as needed for Other (headache). CARVEDILOL 25 MG TABLET Take 1 tablet by mouth in the morning and 1 tablet in the evening. Take with meals. CIPROFLOXACIN HCL 500 MG TABLET TAKE 1 TABLET BY MOUTH EVERY 12 HOURS FOR 7 DAYS CITALOPRAM 10 MG TABLET Take 1 tablet by mouth in the morning. CLONIDINE 0.1 MG TABLET TAKE 1-2 TABLETS BY MOUTH AT BEDTIME NEEDED FOR SLEEP AND ANXIETY CYCLOBENZAPRINE 10 MG TABLET Take 1 tablet by mouth 3 (three) times daily as needed. GABAPENTIN 600 MG TABLET GALCANEZUMAB-GNLM PREFILLED (EMGALITY) SUBCUTANEOUS INJECTION inject 120 mg under the skin once every month. HYDROXYZINE 50 MG TABLET Take 1 tablet by mouth every 6 (six) hours as needed. IBUPROFEN 800 MG TABLET Take 1 tablet by mouth 3 (three) times daily as needed. LOSARTAN 50 MG TABLET Take 1 tablet by mouth in the morning and 1 tablet in the evening. MELOXICAM 15 MG TABLET Take 1 tablet by mouth in the morning. METHOCARBAMOL 750 MG TABLET Take 1 tablet by mouth 2 (two) times daily as needed. MIRTAZAPINE 15 MG TABLET Take 1 tablet by mouth at bedtime. OLANZAPINE 10 MG TABLET Take 1 tablet by mouth in the morning. ONDANSETRON 4 MG DISINTEGRATING TABLET Take 1 tablet by mouth every 8 (eight) hours as needed for Nausea and Vomiting (N/V). QUETIAPINE 400 MG TABLET RIZATRIPTAN 10 MG TABLET Take 1 tablet by mouth as needed for Migraine. May repeat in 2 hours if needed SUCRALFATE 1 GRAM TABLET Take 1 tablet by mouth before meals and at bedtime. SUMATRIPTAN 50 MG TABLET Take 1 tablet by mouth as needed for Migraine. Take one tablet at onset of migraine, may take another tablet 2 hours after initial dose if no relief with first dose. DO NOT EXCEED 100mg in a 24 hour period. TAMSULOSIN 0.4 MG 24 HR CAPSULE Take 1 capsule by mouth in the morning. TIZANIDINE 4 MG TABLET Take 1 tablet by mouth every 6 (six) hours as needed. TOPIRAMATE 25 MG TABLET Take 4 tablets by mouth in the morning. TRAMADOL 50 MG TABLET Take 1 tablet by mouth. TRAZODONE 50 MG TABLET Take 1 tablet by mouth at bedtime. VERAPAMIL SR 120 MG ER TABLET Take 1 tablet by mouth in the morning. START taking Modified Medications as Prescribed No medications on file STOP taking these medications No medications on file Follow-up:Electronically signed by: Zehra García, 01/12/23 0211 ssociated attestation - Miguel Ángel Siddiqui DO - 01/12/2023 7:17 AM CDT After discussion with Dr. García, I examined this patient. I agree with resident's note as written.The patient had CT findings concerning for a possible post-op abscess in the Gallbladder fossa, post-recent cholecystectomy in [place].General surgery was consulted and admitted the patient for further workup and management. [id number] Emergency department [id number], [id number] .[id number] 01-12T07:17:19Physician Emergency department [id number]. [id number] ble for patient wfft37825-3Romgczwds department NoteLN[address]TXTX[id number]14 -09-02T07:17:191.2.840.241522.1 .72.3.15|1.2.840.485375.1.13.10 [id number] 2022-12-03 08:57:03 5228-38-01F66:57:03Formatting Blayne dailey RN [facility] of this note might be different from the original.Patient has an appointment 12/12/22.Blayne Silva RN 12/03/2022 8:57 AM 20504-1Nxzwipzic encounter YwggEM7297-33-96E90:57:18Teleph one encounter [id number]. [id number] ble for patient [id number] Collins RNUT[address]TXTX[address] [id number] -07-24T08:57:181.2.840.701230.1 .72.3.15|1.2.840.868824.1.13.10 [id number]
[2023-04-08] MEDS ORDERED: MORPHINE 4 MG/ML SYR ONE (09:57)
[2023-04-08] MEDS ORDERED: ONDANSETRON 4 MG/2 ML VIAL ONE (09:57)
[2023-04-08] MEDS ORDERED: FAMOTIDINE 20 MG/2 ML VIAL IV ONE (09:57)
[2023-04-08] MEDS ORDERED: NA CHLORIDE 0.9% 0 ML ONE (09:57)
--- NOTE | 2023-04-08 10:35 | RAD REPORT ---
EXAM DESCRIPTION: CTAbdomen Pelvis W Contrast - 04/08/2023 10:05 am CLINICAL HISTORY: Abdominal pain. ABD PAIN COMPARISON: Abdomen Pelvis W Contrast dated 03/27/2023; Abdomen Pelvis W Contrast dated 3; Abdomen Pelvis W Contrast dated 12/01/2022; Abdomen Pelvis W Contrast dated 11/17/2022; Abdomen Pelvis Wo Contrast dated 03/24/2023 TECHNIQUE: Biphasic CT imaging of the abdomen and pelvis was performed with 100 ml non-ionic IV cont rast. All CT scans are performed using dose optimization technique as appropriate and may include automated exposure control or mA/KV adjustment according to patient size. FINDINGS: The lung bases are clear.Cholecystectomy. The liver, spleen, pancreas, adrenal glands and left kidney are within normal limits. Tiny caliceal c alculus right kidney without hydronephrosis. No bowel obstruction, free air, free fluid or abscess. Small fat containing umbilical hernia. The finn endix is normal. No evidence of significant lymphadenopathy. No suspicious bony findings. IMPRESSION: Tiny right-sided renal calculus without hydronephrosis.
[2023-04-08 11:10] LABS: Absolute Lymphocytes (CBC) 1.6 K/uL (0.7-4.9); Hematocrit 40.5 % (36.0-45.0); Lymphocytes % 17.4 % (15.3-44.8); MCV 86.4 fL (80-100); Platelets 314 thou/uL (152-406); RBC Red Blood Cell Count 4.68 M/uL (3.86-4.86)
[2023-04-08 11:45] LABS: Albumin 3.6 g/dL (3.4-5.0); Bilirubin Total 0.5 mg/dL (0.2-1.0); Potassium 3.5 mEq/L (3.5-5.1); Protein, Total 7.3 g/dL (6.4-8.2)
[2023-04-08] MEDS ORDERED: LORazepam 2 MG/ML VIAL ONE (12:12)
--- NOTE | 2023-04-08 12:28 | EDPHYS ---
Physician Documentation [facility] Name: Natanael Dyson Age: 28 yrs Sex: Female : 1995 Arrival Date: 04/08/2023 Time: 09:10 Bed 7 Private MD: ED Physician Neto Dean HPI: 04/08 11:55 This 28 yrs old Female presents to ER via EMS with complaints of Abdominal Pain. ms3 11:55 28-year-old female with past medical history of anxiety, depression, kidney stone ms3 presents to the emergency department via [facility] for 2 months of intermittent abdominal pain associate with nausea and vomiting. Patient was given 50 mcg of fentanyl and 4 mg Zofran in route. Patient notes improvement in her pain after fentanyl and Zofran. Patient states she is currently mild pain. Patient endorses nausea and vomiting. Patient denies alleviating or inciting factors.. 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 - Social history:: Smoking status: unknown. ROS: 11:55 Constitutional: Negative for fever, and chills. Neck: Negative for injury, pain, and ms3 swelling, Cardiovascular: Negative for chest pain, and palpitations. Respiratory: Negative for shortness of breath, cough, wheezing, and pleuritic chest pain, 11:55 MS/Extremity: Negative for injury and deformity, Skin: Negative for injury, rash, and discoloration, 11:55 Abdomen/GI: Positive for abdominal pain, nausea and vomiting, 11:55 All other systems are negative, Exam: 11:55 Constitutional: This is a well developed, well nourished patient who is awake, alert, ms3 and in no acute distress. Head/Face: Normocephalic, atraumatic. Neck: Trachea midline, no cervical lymphadenopathy. Supple, full range of motion without nuchal rigidity, or vertebral point tenderness. No Meningismus. Chest/axilla: Normal chest wall appearance and motion. Nontender with no deformity. Cardiovascular: Regular rate and rhythm with a normal S1 and S2. No gallops, murmurs, or rubs. Normal PMI, no JVD. No pulse deficits. Respiratory: Lungs have equal breath sounds bilaterally, clear to auscultation and percussion. No rales, rhonchi or wheezes noted. No increased work of breathing, no retractions or nasal flaring. Skin: Warm, dry with normal turgor. Normal color with no rashes, no lesions, and no evidence of cellulitis. MS/ Extremity: Pulses equal, no cyanosis. Neurovascular intact. Full, normal range of motion. 11:55 Abdomen/GI: Inspection: abdomen appears normal, Bowel sounds: normal, Palpation: moderate abdominal tenderness, in all quadrants, Vital Signs: 09:23 BP 134 / 102; Pulse 107; Resp 16; Temp 98.6(O); Pulse Ox 99% on R/A; Weight 63.5 kg; hb Height 5 ft. 1 in. ; Pain 7/10; 12:03 BP 138 / 102; Pulse 103; Resp 15; Pulse Ox 100% ; Pain 7/10; jl7 12:42 BP 120 / 90; Pulse 99; Resp 16; Pulse Ox 98% on R/A; iw 09:23 Body Mass Index 26.45 (63.50 kg, 154.94 cm) hb 09:23 Pain Scale: Adult hb 12:03 Pain Scale: Adult jl7 MDM: 09:20 Patient medically screened. ms3 11:55 Differential diagnosis: bowel obstruction, gastritis, non-specific abd pain, ms3 pancreatitis, Perf. Duodenal Ulcer, Perf. Gastric Ulcer. 12:30 Data reviewed: vital signs, nurses notes, lab test result(s), radiologic studies, and ms3 as a result, I will discharge patient. 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 Lora. Recommends patient follow up with pain management. I considered the following discharge prescriptions or medication management in the emergency department Medications were administered in the Emergency Department. See MAR. Historians other than the Patient: EMS: [facility]. Care significantly affected by the following Social Determinants of Health: Poor access to healthcare and/or lack of insurance. Counseling: I had a detailed discussion with the patient and/or guardian regarding the historical points, exam findings, and any diagnostic results supporting the discharge/admit diagnosis, lab results, radiology results, the need for outpatient follow up, to return to the emergency department if symptoms worsen or persist or if there are any questions or concerns that arise at home. Special discussion: Based on the patient's Hx, exam, and Dx evaluation, there is no indication for emergent surgery or inpatient Tx. It is understood by the patient/guardian that if the Sx's persist or worsen they need to return immediately for re-evaluation. ED course: Discussed labs and CT findings with patient. Patient to follow-up with pain management, and GI in 2 to 3 days. Patient understands and agrees with plan. All questions were answered. Return precautions discussed include worsening symptoms, or any other concerns. 04/08 09:36 Order name: CBC with Diff; Complete Time: 11:46 ms3 04/08 09:36 Order name: CMP; Complete Time: 11:46 ms3 04/08 09:36 Order name: Lipase; Complete Time: 11:46 ms3 04/08 09:36 Order name: CT Abd/Pelvis - IV Contrast Only; Complete Time: 10:53 ms3 04/08 09:36 Order name: IV Saline Lock; Complete Time: 11:57 ms3 04/08 09:36 Order name: Labs collected and sent; Complete Time: 11:57 ms3 Administered Medications: 09:50 Drug: NS 0.9% IV 1000 ml IV at 1 bolus Per protocol; 1000 mL bolus Route: IV; Rate: 1 iw bolus; Site: right forearm; 12:20 Follow up: IV Status: Completed infusion iw 09:50 Drug: Famotidine IVP 20 mg IVP once; dilute with 10 mL 0.9% NaCl; give over 2 minutes iw Route: IVP; Site: right forearm; 12:00 Follow up: Response: No adverse reaction iw 09:50 Drug: morphine IVP or IV 4 mg IVP once over 4 mins Route: IVP; Infused Over: 4 mins; iw Site: right forearm; 11:55 Follow up: Response: No adverse reaction; Pain is unchanged, physician notified iw 09:50 Drug: Ondansetron IVP 4 mg IVP once; over 2 minutes Route: IVP; Site: right forearm; iw 12:55 Follow up: Response: No adverse reaction iw 12:03 Drug: Ativan IVP 1 mg IVP once Route: IVP; Site: left hand; [facility] 12:50 Follow up: Response: No adverse reaction iw 12:42 Drug: Dicyclomine PO 20 mg PO once Route: PO; iw 12:50 Follow up: Response: No adverse reaction iw Disposition Summary: 04/08/23 12:27 Discharge Ordered Notes: Location: Home ms3 Condition: Stable ms3 Diagnosis - Abdominal pain, unspecified ms3 - Nausea with vomiting, unspecified ms3 Followup: ms3 - With: Ivan Schumacher MD - When: 2 - 3 days - Reason: Recheck today's complaints Followup: ms3 - With: Luciano Valencia MD - When: 2 - 3 days - Reason: Recheck today's complaints Discharge Instructions: - Discharge Summary Sheet ms3 - Abdominal Pain, Adult ms3 - Nausea and Vomiting, Adult ms3 Forms: - Medication Reconciliation Form ms3 - Thank You Letter ms3 - Antibiotic Education ms3 - Prescription Opioid Use ms3 - Patient Portal Instructions ms3 - Leadership Thank You Letter ms3 Prescriptions: - ondansetron 4 mg Oral Tablet,disintegrating - take 1 tablet ORAL route every 8 hours; 15 tablet; Refills: 0, Product ms3 Selection Permitted - dicyclomine 20 mg Oral tablet - take 1 tablet ORAL route 3 times per day; 15 tablet; Refills: 0, Product ms3 Selection Permitted Signatures: Dispatcher [employer] Vania Parekh RN RN iw Baxter, Heather RN Matty Alexandra RN RN jl7 Neto Dean DO DO ms3
--- NOTE | 2023-04-08 12:28 | ER ---
Nurse's Notes [facility] Name: Natanael Dyson Age: 28 yrs Sex: Female : 1995 Arrival Date: 04/08/2023 Time: 09:10 Bed 7 Private MD: Diagnosis: Abdominal pain, unspecified;Nausea with vomiting, unspecified Presentation: 04/08 09:23 Chief complaint: EMS states: Abdominal pain and N/V x 2 months. BP 147/84, HR 130s, T hb 98.1, BGL 115, Fentanyl 50 mcg, Zofran 4 mg, and NS 150 mls to 22g FA DIRECTOR OF MATERNITY SERVICES. Coronavirus screen: At this time, the client does not indicate any symptoms associated with coronavirus-19. Ebola Screen: No symptoms or risks identified at this time. Initial Sepsis Screen: Does the patient meet any 2 criteria? No. Patient's initial sepsis screen is negative. Does the patient have a suspected source of infection? No. Patient's initial sepsis screen is negative. Risk Assessment: Do you want to hurt yourself or someone else? Patient reports no desire to harm self or others. Onset of symptoms was January 2023. 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 - Social history:: Smoking status: unknown. Screenin:51 [facility] ED Fall Risk Assessment (Adult) Score/Fall Risk Level 0 - 2 = Low Risk. Abuse iw screen: Denies threats or abuse. Denies injuries from another. Nutritional screening: Has had N/V for 3 or more days. Tuberculosis screening: No symptoms or risk factors identified. Assessment: 09:51 General: Appears in no apparent distress. Behavior is calm, cooperative. Pain: iw Complains of pain in abdomen. Neuro: Level of Consciousness is awake, alert, obeys commands, Oriented to person, place, Moves all extremities. GI: Abd is soft X 4 quads Reports lower abdominal pain, upper abdominal pain, nausea, vomiting. 10:51 Reassessment: Patient appears in no apparent distress at this time. Patient and/or iw family updated on plan of care and expected duration. Pain level reassessed. 12:43 Reassessment: Patient appears in no apparent distress at this time. Patient and/or iw family updated on plan of care and expected duration. Pain level reassessed. Patient is alert, oriented x 3, equal unlabored respirations, skin warm/dry/pink. Vital Signs: 09:23 BP 134 / 102; Pulse 107; Resp 16; Temp 98.6(O); Pulse Ox 99% on R/A; Weight 63.5 kg; hb Height 5 ft. 1 in. ; Pain 7/10; 12:03 BP 138 / 102; Pulse 103; Resp 15; Pulse Ox 100% ; Pain 7/10; jl7 12:42 BP 120 / 90; Pulse 99; Resp 16; Pulse Ox 98% on R/A; iw 09:23 Body Mass Index 26.45 (63.50 kg, 154.94 cm) hb 09:23 Pain Scale: Adult hb 12:03 Pain Scale: Adult jl7 ED Course: 09:19 Patient arrived in ED. iw 09:20 Neto Dean DO is Attending Physician. ms3 09:25 Triage completed. hb 09:25 Arm band placed on. hb 09:41 Matty Bee, RN is Primary Nurse. jl7 09:51 Primary Nurse role handed off by Matty Bee, ROSEY iw 09:51 Vania Loo, ROSEY is Primary Nurse. iw 09:51 Maintain EMS IV. Dressing intact. Good blood return noted. Gauge \T\ site: [address]FA. iw 10:06 CT Abd/Pelvis - IV Contrast Only In Process Unspecified. EDMS 12:25 Ivan Schumacher MD is Referral Physician. ms3 12:25 Luciano Valencia MD is Referral Physician. ms3 12:43 Patient has correct armband on for positive identification. Provided Education on: . iw 12:48 No provider procedures requiring assistance completed. IV discontinued, intact, iw bleeding controlled, No redness/swelling at site. Pressure dressing applied. Administered Medications: 09:50 Drug: NS 0.9% IV 1000 ml IV at 1 bolus Per protocol; 1000 mL bolus Route: IV; Rate: 1 iw bolus; Site: right forearm; 12:20 Follow up: IV Status: Completed infusion iw 09:50 Drug: Famotidine IVP 20 mg IVP once; dilute with 10 mL 0.9% NaCl; give over 2 minutes iw Route: IVP; Site: right forearm; 12:00 Follow up: Response: No adverse reaction iw 09:50 Drug: morphine IVP or IV 4 mg IVP once over 4 mins Route: IVP; Infused Over: 4 mins; iw Site: right forearm; 11:55 Follow up: Response: No adverse reaction; Pain is unchanged, physician notified iw 09:50 Drug: Ondansetron IVP 4 mg IVP once; over 2 minutes Route: IVP; Site: right forearm; iw 12:55 Follow up: Response: No adverse reaction iw 12:03 Drug: Ativan IVP 1 mg IVP once Route: IVP; Site: left hand; jl7 12:50 Follow up: Response: No adverse reaction iw 12:42 Drug: Dicyclomine PO 20 mg PO once Route: PO; iw 12:50 Follow up: Response: No adverse reaction iw Medication: 12:49 VIS not applicable for this client. iw Outcome: 12:27 Discharge ordered by . ms3 12:48 Discharged to home ambulatory, iw 12:48 Condition: good 12:48 Discharge instructions given to patient, Instructed on discharge instructions, follow up and referral plans. medication usage, Demonstrated understanding of instructions, follow-up care, medications, Prescriptions given X 3, 12:49 Patient left the ED. iw Signatures: Dispatcher [employer] EDVania Pacheco RN RN Judi Rich RN RN Matty Bee RN RN jl7 Neto Dean DO DO ms3
[2023-04-08] MEDS ORDERED: DICYCLOMINE HCL 10 MG CAP ONE (12:52)
[2023-04-08 13:24] VITALS: TEMP 98.6
[2023-04-08 13:27] VITALS: BP 120/90; O2SAT 98
== END 2023-04-08 12:49 | disposition home or self-care (01) ==
LOC: ER 09:10
DX: R10.9 Unspecified abdominal pain (principal); R11.2 Nausea with vomiting, unspecified; F41.9 Anxiety disorder, unspecified; F32.A Depression, unspecified
CPT/HCPCS: 36415; 74177; 80053; 83690; 85025; 99284; J2405; J7030; Q9967

== ENCOUNTER → 2023-05-13 | Emergency (ER) | payer SELFPAY ==
[~2023-05-13] MED LIST: MAGNESIUM SULFATE 1 gm IVPB 1 GM/100 ML BAG IV ONE; MORPHINE 4 MG/ML SYR ONE; ONDANSETRON 4 MG/2 ML VIAL ONE; TAMSULOSIN 0.4 MG SR CAP ONE
--- OUTSIDE RECORDS SUMMARY | 2023-05-13 06:58 | XMS REPORT | Continuity of Care Document ---
Author Name Unknown Address [address] [facility] [address] [place] [address] [facility] Address [address] [facility] [address] [place] [address] Care Team Providers Care Cord Maker Name Role Phone ERICKSON_R Attending Clinician Unavailable Dennis PEÑAPAlissa Attending Clinician [phone] Dev PAC, K Sharlene Attending Clinician [phone] Doctor Unassigned, Carmichaels Attending Clinician U sen Quiñonez MD, Shelia Oneal Attending Clinician [phone] Krystle FELIX, Anna Ricketts Attending Clinician [phone] Coretta FELIX, Lopez Attending Clinician [phone] ERICKSON_R Admitting Clinician Unavailable Encounters Start Date/Time End Date/Time Encounter Type Admission Type Attending Clinicians Care Facility Care Department Encounter ID Source 2023-02-14 12:59:23 2023-02-14 12:59:23 Outpatient [facility] [id number] Willis F Jeffery 2023-02-06 18:19:02 2023-02-06 18:19:02 Outpatient [facility] [id number] Wlilis Rivera Jeffery 2023-01-30 00:00:00 2023-01-30 00:00:00 Outpatient ERICKSON_R [facility] [id number] Odilia jaime [facility] 2022-12-28 00:00:00 2022-12-28 00:00:00 Outpatient ERICKSON_R [facility] [id number] 2022-12-14 18:37:13 2022-12-14 18:37:13 Outpatient [facility] [id number] Willis Gil 2022-12-13 00:00:00 2022-12-13 00:00:00 Outpatient ERMARIA DE JESUS_R [facility] [id number] 2022-11-18 10:08:00 2022-11-18 10:08:[address] [facility] [id number] Willis Gil 2022-11-09 15:26:18 2022-11-09 15:26:18 Outpatient [facility] [id number] Willis Gil 2020-11-10 18:42:46 2020-11-10 19:53:43 Urgent Care [facility] [id number] 350.1.13.10 4.2.7.2.686 [id number] 2020-10-31 18:52:00 2020-10-31 22:15:00 [id number] 350.1.13.10 4.2.7.2.686 [id number] 2020-10-31 00:00:00 2020-10-31 00:00:00 Orders Only Doctor Unassigned, Carmichaels [facility] [id number] 350.1.13.10 4.2.7.2.686 [id number] 2020-10-20 14:02:00 2020-10-20 17:13:00 [facility] [id number] 350.1.13.10 4.2.7.2.686 [id number] 2020-10-14 10:00:00 2020-10-14 23:59:00 Hospital Encounter Shelia Quiñonez [facility] [id number] 350.1.13.10 4.2.7.2.686 [id number] 2020-10-09 12:00:00 2020-10-09 15:57:00 Emergency Anna Dalton [facility] [id number] 350.1.13.10 4.2.7.2.686 [id number] 2020-10-06 08:53:00 2020-10-06 09:46:44 Office Visit Shelia Qui[facility]one[facility] 1.0.114 350.1.13.10 4.2.7.2.686 [id number] 2020-03-04 00:00:00 2020-03-04 00:00:00 Lopez Barnes [facility] 1..114 350.1.13.10 4.2.7.2.686 [id number]
[2023-05-13 07:30] LABS: Specific Gravity 1.026 (1.005-1.030)
[2023-05-13 07:33] LABS: Specific Gravity 1.026 (1.005-1.030); Urine Bacteria None Seen /HPF (<20); Urine Bilirubin NEGATIVE (Negative); Urine Blood 1+ (Negative); Urine Clarity Extremely Turbid (Clear); Urine Color Yellow (Yellow); Urine Glucose NEGATIVE (Negative); Urine Mucus 3+ /HPF (None Seen); Urine Protein 1+ (Negative); Urine Urobilinogen Normal (Normal)
[2023-05-13 08:04] LABS: Albumin 3.9 g/dL (3.4-5.0); Bilirubin Total 0.9 mg/dL (0.2-1.0); Potassium 3.7 mEq/L (3.5-5.1); Protein, Total 7.9 g/dL (6.4-8.2)
[2023-05-13 08:12] LABS: Absolute Lymphocytes (CBC) 1.4 K/uL (0.7-4.9); Hematocrit 40.8 % (36.0-45.0); Lymphocytes % 24.4 % (15.3-44.8); MCV 86.7 fL (80-100); MPV 7.8 fL (7.6-11.3); Platelets 346 thou/uL (152-406)
--- NOTE | 2023-05-13 08:58 | RAD REPORT ---
EXAM DESCRIPTION: CT - Stone Protocol - 05/13/2023 8:00 am CLINICAL HISTORY: Abdominal pain. Right flank pain COMPARISON: None. TECHNIQUE: Computed axial tomography of the abdomen pelvis was obtained without oral or IV contrast. Lack of IV and oral contrast limits evaluation of solid organs, appendix, bowel, and vessels. Snowden l reformatted images were obtained and reviewed. All CT scans are performed using dose optimization technique as appropriate and may include automated exposure control or mA/KV adjustment according to patient size. FINDINGS: Small right renal calculi. No hydronephrosis. Ureteral calculus is not seen. No left renal calculus. Bladder calculus is not present. The liver, spleen, pancreas and adrenals appear grossly normal There is no evidence of diverticulitis. The appendix appears normal No adnexal mass. Small umbilical hernia IMPRESSION: Small nonobstructing right renal calculi
--- NOTE | 2023-05-13 09:05 | ER ---
Nurse's Notes [facility] Name: Natanael Dyson Age: 28 yrs Sex: Female : 1995 Arrival Date: 05/13/2023 Time: 06:55 Bed 16 Private MD: Diagnosis: Lower abdominal pain, unspecified;Calculus of kidney Presentation: 05/13 07:12 Chief complaint: Patient states: Possible kidney stone. Coronavirus screen: At this ld1 time, the client does not indicate any symptoms associated with coronavirus-19. Ebola Screen: No symptoms or risks identified at this time. Initial Sepsis Screen: Does the patient meet any 2 criteria? No. Patient's initial sepsis screen is negative. Does the patient have a suspected source of infection? No. Patient's initial sepsis screen is negative. Risk Assessment: Do you want to hurt yourself or someone else? Patient reports no desire to harm self or others. Onset of symptoms was May 13, 2023. 07:12 Method Of Arrival: Ambulatory ld1 07:12 Acuity: THIERNO 3 ld1 Triage Assessment: 07:12 General: Appears in no apparent distress. comfortable, Behavior is anxious, fussy. ld1 Pain: Complains of pain in back Pain does not radiate. Pain currently is 9 out of 10 on a pain scale. Quality of pain is described as throbbing, Pain began 2 hours ago. Is continuous. EENT: No signs and/or symptoms were reported regarding the EENT system. Neuro: Level of Consciousness is awake, alert, obeys commands, Oriented to person, place, time, situation. Cardiovascular: Capillary refill < 3 seconds Patient's skin is warm and dry. Respiratory: Airway is patent Respiratory effort is even, unlabored. GI: Abdomen is round non-distended. : Reports pain in suprapubic area flank(s). Derm: No signs and/or symptoms reported regarding the dermatologic system. Musculoskeletal: No signs and/or symptoms reported regarding the musculoskeletal system. Historical: - Allergies: 07:12 Compazine; ld1 07:12 Haldol; ld1 07:12 Reglan; ld1 07:12 Toradol; ld1 - PMHx: 07:12 Anxiety; depressive disorder; Kidney stone; ld1 - PSHx: 07:12 Cholecystectomy; Ligation of fallopian tube; ld1 - Immunization history:: Adult Immunizations up to date. - Social history:: Smoking status: Patient denies any tobacco usage or history of. Patient/guardian denies using alcohol. - Family history:: not pertinent. - Hospitalizations: : No recent hospitalization is reported. Screenin:13 [facility] ED Fall Risk Assessment (Adult) History of falling in the last 3 months, ld1 including since admission No falls in past 3 months (0 pts). Abuse screen: Denies threats or abuse. Denies injuries from another. Nutritional screening: No deficits noted. Tuberculosis screening: No symptoms or risk factors identified. Assessment: 07:13 Reassessment: See triage assessment. ERP at bedside. ld1 07:30 Reassessment: Pt yelling at RN in room. Demanding IV pain medication, "Shots are not an ld1 option for me, I refuse them." Notified ERP of patient demands. 07:51 Reassessment: No changes from previously documented assessment. Patient and/or family ll1 updated on plan of care and expected duration. Pain level reassessed. 08:00 Reassessment: Patient appears in no apparent distress at this time. No changes from ld1 previously documented assessment. Patient states symptoms have not improved. 08:55 Reassessment: Pt c/o pain and nausea not improving, pt requesting medication, MD was aa5 notified. . 09:31 Reassessment: Pt c/o pain and nausea. Notified EPR. ld1 09:31 Reassessment: Patient appears in no apparent distress at this time. No changes from ld1 previously documented assessment. Patient states symptoms have not improved. 09:36 Reassessment: Pt apologizing to RN for "Being rude." Pt denies concerns at this time. ld1 States "I am going to follow up with a urologist so I can get this pain fixed.". Vital Signs: 07:09 BP 139 / 71; Pulse 109; Resp 20; Temp 98.1(O); Pulse Ox 99% on R/A; Weight 58.97 kg em1 (R); Height 5 ft. 1 in. ; Pain 10/10; 08:30 BP 126 / 69; Pulse 102; Resp 20; Pulse Ox 99% on R/A; ld1 07:09 Body Mass Index 24.56 (58.97 kg, 154.94 cm) em1 07:09 Pain Scale: Adult em1 ED Course: 06:57 Patient arrived in ED. kj1 07:04 Harjit Samson MD is Attending Physician. rn 07:11 Kellie Dean, ROSEY is Primary Nurse. ld1 07:12 Triage completed. ld1 07:12 Arm band placed on right wrist. ld1 07:13 Patient has correct armband on for positive identification. Bed in low position. Call ld1 light in reach. Side rails up X2. child monitor on. Pulse ox on. NIBP on. Door closed. Noise minimized. Warm blanket given. 07:13 No provider procedures requiring assistance completed. ld1 07:45 Inserted saline lock: 22 gauge in right hand, using aseptic technique. Blood collected. ll1 07:49 CBC with Diff Sent. ld1 07:49 CMP Sent. ld1 08:00 CT Stone Protocol In Process Unspecified. EDMS 09:04 Tristan Moeller MD is Referral Physician. rn 09:37 IV discontinued, intact, bleeding controlled, No redness/swelling at site. ld1 Administered Medications: 07:49 Drug: Ondansetron IVP 4 mg IVP once; over 2 minutes Route: IVP; Site: left hand; ld1 07:49 Drug: morphine IVP or IV 4 mg IVP once over 4 mins Route: IVP; Infused Over: 4 mins; ld1 Site: left hand; 08:22 Drug: morphine IVP or IV 4 mg IVP once over 4 mins; verbal order per Dr. Samson Route: ld1 IVP; Infused Over: 4 mins; Site: right hand; 08:28 Drug: Magnesium Sulfate IVPB 1 grams IVPB once over 1 hrs Route: IVPB; Infused Over: 1 ld1 hrs; Site: left hand; 08:50 Drug: Flomax PO 0.4 mg PO once Route: PO; ld1 09:11 Not Given (not in pyxiss): kbggniztzynd99.5 mg IVP once ld1 09:11 Drug: morphine IVP or IV 4 mg IVP once over 4 mins Route: IVP; Infused Over: 4 mins; ld1 Site: right hand; Medication: 09:37 VIS not applicable for this client. ld1 Outcome: 09:04 Discharge ordered by . rn 09:37 Discharged to home ambulatory, ld1 09:37 Condition: stable 09:37 Discharge instructions given to patient, Instructed on discharge instructions, follow up and referral plans. Demonstrated understanding of instructions, follow-up care, 09:37 Patient left the ED. ld1 Signatures: Dispatcher [employer] EDMS Harjit Samson MD MD rn Cliff Win em1 Jaycee Brewer RN RN aa5 Samantha Vang1 Brandi Cotter RN RN ll1 Kellie Dean RN RN ld1
--- NOTE | 2023-05-13 09:05 | EDPHYS ---
Physician Documentation [facility] Name: Natanael Dyson Age: 28 yrs Sex: Female : 1995 Arrival Date: 05/13/2023 Time: 06:55 Bed 16 Private MD: ED Physician Harjit Samson HPI: 05/13 07:44 This 28 yrs old Female presents to ER via Ambulatory with complaints of Possible Kidney rn Stone, Nausea. 07:44 The patient complains of pain in the right mid back and right low back. The pain rn radiates to the abdomen. 07:45 Onset: The symptoms/episode began/occurred this morning. Modifying factors: The rn symptoms are alleviated by nothing. the symptoms are aggravated by nothing. Associated signs and symptoms: Pertinent positives: nausea, Pertinent negatives: fever. Severity of pain: At its worst the pain was moderate in the emergency department the pain is unchanged. The patient has experienced similar episodes in the past. The patient has not recently seen a physician. 07:45 Patient states he is never required surgery for kidney stone. Able to pass them each rn and every time.. Historical: - Allergies: 07:12 Compazine; ld1 07:12 Haldol; ld1 07:12 Reglan; ld1 07:12 Toradol; ld1 - PMHx: 07:12 Anxiety; depressive disorder; Kidney stone; ld1 - PSHx: 07:12 Cholecystectomy; Ligation of fallopian tube; ld1 - Immunization history:: Adult Immunizations up to date. - Social history:: Smoking status: Patient denies any tobacco usage or history of. Patient/guardian denies using alcohol. - Family history:: not pertinent. - Hospitalizations: : No recent hospitalization is reported. ROS: 07:45 Constitutional: Negative for fever, chills, and weight loss, Cardiovascular: Negative rn for chest pain, palpitations, and edema, Respiratory: Negative for shortness of breath, cough, wheezing, and pleuritic chest pain, Abdomen/GI: Positive for right flank and right lower abdominal pain Back: Positive for right flank pain MS/Extremity: Negative for injury and deformity, Skin: Negative for injury, rash, and discoloration, Neuro: Negative for headache, weakness, numbness, tingling, and seizure, Exam: 07:45 Constitutional: This is a well developed, well nourished patient who is awake, alert, rn appears uncomfortable, laying perpendicular across bed while standing. Head/Face: Normocephalic, atraumatic. Cardiovascular: Tachycardic, regular. No pulse deficits. Respiratory: No increased work of breathing, no retractions or nasal flaring. Abdomen/GI: Soft, mild right lower quadrant tenderness without guarding or rebound Back: No spinal tenderness. No costovertebral tenderness. Vital Signs: 07:09 BP 139 / 71; Pulse 109; Resp 20; Temp 98.1(O); Pulse Ox 99% on R/A; Weight 58.97 kg em1 (R); Height 5 ft. 1 in. ; Pain 10/10; 08:30 BP 126 / 69; Pulse 102; Resp 20; Pulse Ox 99% on R/A; ld1 07:09 Body Mass Index 24.56 (58.97 kg, 154.94 cm) em1 07:09 Pain Scale: Adult em1 MDM: 07:04 Patient medically screened. rn 09:03 ED course: CT without ureteral calculus. Blood in urine, no infection. Most likely rn recently passed a stone. No other acute findings. Blood work appears normal. Patient reports persistent pain and request more pain medication. Will administer more pain medication and discharged home as no indication for emergent urological consultation or admission.. 05/13 07:16 Order name: CBC with Diff; Complete Time: 08:23 rn 05/13 07:16 Order name: CMP; Complete Time: 08:23 rn 05/13 07:16 Order name: Test, Urine; Complete Time: 07:44 rn 05/13 07:16 Order name: Urinalysis w/ reflexes; Complete Time: 07:44 rn 05/13 07:16 Order name: CT Stone Protocol; Complete Time: 08:59 rn 05/13 07:16 Order name: IV Saline Lock; Complete Time: 07:49 rn 05/13 07:16 Order name: Labs collected and sent; Complete Time: 07:49 rn 05/13 07:57 Order name: Labs - recollect needed: reconnect cbc / clots/ per Sarita; Complete Time: eb 08:05 Administered Medications: 07:49 Drug: Ondansetron IVP 4 mg IVP once; over 2 minutes Route: IVP; Site: left hand; ld1 07:49 Drug: morphine IVP or IV 4 mg IVP once over 4 mins Route: IVP; Infused Over: 4 mins; ld1 Site: left hand; 08:22 Drug: morphine IVP or IV 4 mg IVP once over 4 mins; verbal order per Dr. Samson Route: ld1 IVP; Infused Over: 4 mins; Site: right hand; 08:28 Drug: Magnesium Sulfate IVPB 1 grams IVPB once over 1 hrs Route: IVPB; Infused Over: 1 ld1 hrs; Site: left hand; 08:50 Drug: Flomax PO 0.4 mg PO once Route: PO; ld1 09:11 Not Given (not in pyxiss): gqqdovdfhach32.5 mg IVP once ld1 09:11 Drug: morphine IVP or IV 4 mg IVP once over 4 mins Route: IVP; Infused Over: 4 mins; ld1 Site: right hand; Disposition Summary: 05/13/23 09:04 Discharge Ordered Notes: Location: Home rn Problem: new rn Symptoms: have improved rn Condition: Stable rn Diagnosis - Lower abdominal pain, unspecified rn - Calculus of kidney rn Followup: rn - With: Tristan Moeller MD - When: As needed - Reason: Recheck today's complaints, Re-evaluation by your physician Discharge Instructions: - Discharge Summary Sheet rn - Abdominal Pain, Adult rn - Colic rn - Kidney Stones rn Forms: - Medication Reconciliation Form rn - Thank You Letter rn - Antibiotic rn hematology - Prescription Opioid Use rn - Patient Portal Instructions rn - Leadership Thank You Letter rn Signatures: Dispatcher [employer] Harjit Elliott MD MD rn Botello, Elizabeth eb Sims, Lauren RN RN ld1
[2023-05-13 09:47] VITALS: TEMP 98.1; O2SAT 99
[2023-05-13 09:58] VITALS: BP 126/69
== END ==
LOC: ER 06:55
DX: N20.0 Calculus of kidney (principal); Z87.442 Personal history of urinary calculi; Z88.1 Allergy status to other antibiotic agents; Z88.5 Allergy status to narcotic agent; Z88.8 Allergy status to other drugs, medicaments and biological substances
CPT/HCPCS: 36415; 74176; 76377; 80053; 81001; 81025; 85025; 99285; J2405; J3475

== ENCOUNTER → 2023-05-15 | Emergency (ER) | payer SELFPAY ==
[~2023-05-15] MED LIST changes: +FENTANYL CITR 100 MCG/2 ML ONE; -MAGNESIUM SULFATE 1 gm IVPB 1 GM/100 ML BAG IV ONE; +NA CHLORIDE 0.9% 1,000 ML ONE; -TAMSULOSIN 0.4 MG SR CAP ONE
--- OUTSIDE RECORDS SUMMARY | 2023-05-15 09:33 | XMS REPORT | Continuity of Care Document ---
Author Name Unknown Address [address] [place] [address] [facility] Address [address] [place] [address] Care Team Providers Care E Commerce Director Name Role Phone ERICKSON_R Attending Clinician Unavailable Alissa Rosales Attending Clinician [phone] Dev PAC, K Sharlene Attending Clinician [phone] Doctor Unassigned, [place] Attending Clinician U sen Quiñonez MD, Shelia Oneal Attending Clinician [phone] Krystle FELIX, Anna Ricketts Attending Clinician [phone] Coretta FELIX, Lopez Attending Clinician [phone] ERICKSON_R Admitting Clinician Unavailable Encounters Start Date/Time End Date/Time Encounter Type Admission Type Attending Clinicians Care Facility Care Department Encounter ID Source 2023-02-14 12:59:23 2023-02-14 12:59:23 Outpatient [facility] [id number] [facility]ery 2023-02-06 18:19:02 2023-02-06 18:19:02 Outpatient [facility] [id number] [facility] 2023-01-30 00:00:00 2023-01-30 00:00:00 Outpatient ERICKSON_R [facility] [id number] [facility] 2022-12-28 00:00:00 2022-12-28 00:00:00 Outpatient ERICKSON_R [facility] [id number] 2022-12-14 18:37:13 2022-12-14 18:37:13 Outpatient [facility] [id number] Willis Gil 2022-12-13 00:00:00 2022-12-13 00:00:00 Outpatient BILL_R [facility] [id number] [facility] 2022-11-18 10:08:00 2022-11-18 10:08:00 Outpatient [facility] [id number] Willis Gil 2022-11-09 15:26:18 2022-11-09 15:26:18 Outpatient [facility] [id number] Willis Gil 2020-11-10 18:42:46 2020-11-10 19:53:43 Urgent Care [facility] [id number] 2020-10-31 18:52:00 2020-10-31 22:15:00 Emergency Dev Kaycee [facility] [id number] 2020-10-31 00:00:00 2020-10-31 00:00:00 Orders Only Doctor Unassigned, [place] [facility] [id number] 2020-10-20 14:02:00 2020-10-20 17:13:00 Emergency Dev Kaycee [facility] [id number] 2020-10-14 10:00:00 2020-10-14 23:59:00 Hospital Encounter Shelia Quiñonez [facility] [id number] 2020-10-09 12:00:00 2020-10-09 15:57:00 Emergency Anna Dalton [facility] [id number] [id number] 2020-10-06 08:53:00 2020-10-06 09:46:44 Office Visit Shelia Quiñonez [facility] 1..114 [id number] 2020-03-04 00:00:00 2020-03-04 00:00:00 Lopez Barnes [facility] 1..114 [id number] [id number]
[2023-05-15 10:42] LABS: Absolute Lymphocytes (CBC) 1.5 K/uL (0.7-4.9); Hematocrit 40.2 % (36.0-45.0); Lymphocytes % 20.5 % (15.3-44.8); MCV 87.7 fL (80-100); MPV 7.7 fL (7.6-11.3); Platelets 365 thou/uL (152-406); RBC Red Blood Cell Count 4.59 M/uL (3.86-4.86)
[2023-05-15 10:50] LABS: Protime INR 1.13
[2023-05-15 11:03] LABS: Albumin 3.8 g/dL (3.4-5.0); Bilirubin Direct 0.2 mg/dL (0-0.2); Bilirubin Indirect, Calculated 0.5 mg/dL (0.2-0.8); Bilirubin Total 0.7 mg/dL (0.2-1.0); Magnesium 1.9 mg/dL (1.6-2.4); Potassium 3.5 mEq/L (3.5-5.1); Protein, Total 7.9 g/dL (6.4-8.2); Troponin High Sensitivity 4.1 pg/mL (<58.9)
--- NOTE | 2023-05-15 11:27 | RAD REPORT ---
[facility]AM DES[facility] 10:46 am CLINICAL HISTORY: COUGH COMPARISON: Chest Pa And Lat (2 Views) dated 01/02/2023; Chest Single View dated 12/27/2022; Chest Sin gle View dated 12/06/2022; Abdomen 1 View (KUB) dated 12/02/2022 TECHNIQUE: Portable AP view of the chest. FINDINGS: The lungs are clear. No pneumothorax or effusion. The cardiomediastinal contours are unre markable. IMPRESSION: No acute cardiopulmonary process.
--- NOTE | 2023-05-15 12:05 | RAD REPORT ---
EXAM DESCRIPTION: CT - Head Brain Wo Cont - 05/15/2023 11:21 am CLINICAL HISTORY: HEADACHE COMPARISON: Head angio dated 05/15/2023; Head angio dated 12/24/2021 TECHNIQUE: Noncontrast head CT images were obtained without IV contrast. Multiplanar reformats were generated and reviewed. All CT scans are performed using dose optimization technique as appropriate and may include automated exposure control or mA/KV adjustment according to patient size. FINDINGS: No intracranial hemorrhage, mass, or edema. Midline structures are unremarkable. Normal ventricular caliber for age. Gilmore-white matter differentiation is preserved, without evidence of acute infarct. No abnormal extra- axial fluid collections. Mastoid air cells and visualized portions of the paranasal sinuses are clear. No acute bony findings. IMPRESSION: No evidence of an acute intracranial process.
--- NOTE | 2023-05-15 12:09 | RAD REPORT ---
EXAM DESCRIPTION: CT - Head angio - 05/15/2023 11:23 am CLINICAL HISTORY: HEADACHE COMPARISON: Head angio dated 12/24/2021; Ct Stroke Brain Wo Cont dated 12/24/2021 TECHNIQUE: Axial CT angiography images of the head was performed with multiplanar and maximum intens ity projection reconstructions. Images performed following intravenous administration of 100mL Isovue 370. All CT scans are performed using dose optimization technique as appropriate and may include automated exposure control or mA/KV adjustment according to patient size. FINDINGS: No evidence of large vessel occlusion. No evidence of aneurysm or dissection flap is detec renata. No flow-limiting stenosis or vascular malformation identified. Antegrade flow is seen in the vertebral arteries. The vertebral arteries are codominant. The visualized dural venous sinuses are grossly patent. IMPRESSION: No evidence of large vessel occlusion or flow-limiting stenosis.
--- NOTE | 2023-05-15 12:16 | RAD REPORT ---
EXAM DESCRIPTION: CT - Neck Angio - 05/15/2023 11:22 am CLINICAL HISTORY: CONGESTION COMPARISON: Head C Spine Mpr Wo Con dated 10/23/2022; Neck Angio dated 12/24/2021; Neck Angio dated TECHNIQUE: Axial CT angiography images of the head was performed with multiplanar and maximum intens ity projection reconstructions. Images performed following intravenous administration of 100mL Isovue 370. All CT scans are performed using dose optimization technique as appropriate and may include automated exposure control or mA/KV adjustment according to patient size. Quantification of carotid stenosis, if any, is performed according to NASCET criteria. FINDINGS: A left aortic arch is identified with normal three vessel configuration of the great vesse ls. No significant flow abnormality is seen of the common carotid bilaterally. No significant stenosis is identified involving the cervical segments of both internal carotid arteri es. Normal flow is seen within both vertebral arteries. Asymmetric prominence of the right faucial tonsil, stable. IMPRESSION: No significant flow abnormality of the neck vessels is identified. CAROTID STENOSIS REFERENCE USING NASCET CRITERIA: % ICA stenosis = (1 - narrowest ICA diameter/diameter of distal cervical ICA) x 100. Mild - <50% stenosis. Moderate - 50-69% stenosis. Severe - 70-94% stenosis. Near occlusion - 95-99% stenosis. Occluded - 100% stenosis.
[2023-05-15 12:20] LABS: Urine Bilirubin NEGATIVE (Negative); Urine Blood Negative (Negative); Urine Clarity Clear (Clear); Urine Color Colorless (Yellow); Urine Glucose NEGATIVE (Negative); Urine Protein NEGATIVE (Negative); Urine Urobilinogen Normal (Normal); Urine pH 6.5 (5.0-7.0)
[2023-05-15 12:21] LABS: Specific Gravity > 1.030 (1.005-1.030)
--- NOTE | 2023-05-15 13:20 | EDPHYS ---
Physician Documentation [facility] Name: Natanael Dyson Age: 28 yrs Sex: Female : 1995 Arrival Date: 05/15/2023 Time: 09:30 Bed 10 Private MD: ROMAN Physician Justin Estrella HPI: 05/15 12:24 This 28 yrs old Female presents to ER via EMS with complaints of Headache. rudolph 12:24 The patient complains of pain to the top of head, forehead, left frontal area, left rudolph side of the back of head, left occipital area, left base of the skull, right frontal area, right side of the back of head, right occipital area and right base of the skull. The patient describes the headache as aching, constant. Onset: The symptoms/episode began/occurred 3 day(s) ago. Associated signs and symptoms: The patient has no apparent associated signs or symptoms. Severity of symptoms: At its worst the pain was mild, moderate, in the emergency department the pain is unchanged. Headache History: The patient has had previous headaches and this one is similar to previous episodes. The symptoms are alleviated by nothing. the symptoms are aggravated by nothing. The patient has not experienced similar symptoms in the past. 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 - Social history:: Smoking status: Patient denies any tobacco usage or history of. ROS: 12:26 Constitutional: Negative for fever, chills, and weight loss, Eyes: Negative for injury, rudolph pain, redness, and discharge, ENT: Negative for injury, pain, and discharge, Neck: Negative for injury, pain, and swelling, Cardiovascular: Negative for chest pain, palpitations, and edema, Respiratory: Negative for shortness of breath, cough, wheezing, and pleuritic chest pain, Abdomen/GI: Negative for abdominal pain, nausea, vomiting, diarrhea, and constipation, Back: Negative for injury and pain, : Negative for injury, bleeding, discharge, and swelling, MS/Extremity: Negative for injury and deformity, Skin: Negative for injury, rash, and discoloration, Psych: Negative for depression, anxiety, suicide ideation, homicidal ideation, and hallucinations, Allergy/Immunology: Negative for hives, rash, and allergies, Endocrine: Negative for neck swelling, polydipsia, polyuria, polyphagia, and marked weight changes, Hematologic/Lymphatic: Negative for swollen nodes, abnormal bleeding, and unusual bruising, 12:26 Neuro: Positive for headache, tingling, of the right arm, Exam: 12:26 Constitutional: This is a well developed, well nourished patient who is awake, alert, rudolph and in no acute distress. Head/Face: Normocephalic, atraumatic. Eyes: Pupils equal round and reactive to light, extra-ocular motions intact. Lids and lashes normal. Conjunctiva and sclera are non-icteric and not injected. Cornea within normal limits. Periorbital areas with no swelling, redness, or edema. ENT: Nares patent. No nasal discharge, no septal abnormalities noted. Tympanic membranes are normal and external auditory canals are clear. Oropharynx with no redness, swelling, or masses, exudates, or evidence of obstruction, uvula midline. Mucous membranes moist. Neck: Trachea midline, no thyromegaly or masses palpated, and no cervical lymphadenopathy. Supple, full range of motion without nuchal rigidity, or vertebral point tenderness. No Meningismus. Chest/axilla: Normal chest wall appearance and motion. Nontender with no deformity. No lesions are appreciated. Cardiovascular: Regular rate and rhythm with a normal S1 and S2. No gallops, murmurs, or rubs. Normal PMI, no JVD. No pulse deficits. Respiratory: Lungs have equal breath sounds bilaterally, clear to auscultation and percussion. No rales, rhonchi or wheezes noted. No increased work of breathing, no retractions or nasal flaring. Abdomen/GI: Soft, non-tender, with normal bowel sounds. No distension or tympany. No guarding or rebound. No evidence of tenderness throughout. Back: No spinal tenderness. No costovertebral tenderness. Full range of motion. Skin: Warm, dry with normal turgor. Normal color with no rashes, no lesions, and no evidence of cellulitis. MS/ Extremity: Pulses equal, no cyanosis. Neurovascular intact. Full, normal range of motion. Neuro: Awake and alert, GCS 15, oriented to person, place, time, and situation. Cranial nerves II-XII grossly intact. Motor strength 5/5 in all extremities. Sensory grossly intact. Cerebellar exam normal. Normal gait. Psych: Awake, alert, with orientation to person, place and time. Behavior, mood, and affect are within normal limits. 12:26 ECG was reviewed by the Attending Physician. 12:29 Neck: ROM/movement: is normal, no acute changes, pain, is not appreciated, limited rudolph range of motion, is not appreciated, Meningeal signs: are not present, Kernig's sign is negative, Brudzinski's sign is negative, Vital Signs: 09:39 BP 132 / 80; Pulse 99; Resp 18 S; Pulse Ox 100% on R/A; Weight 58.97 kg (R); Height 5 kc6 ft. 1 in. (R); Pain 10/10; 14:15 BP 113 / 69; Pulse 93; Resp 18; Pulse Ox 100% on R/A; Pain 5/10; cm10 09:39 Body Mass Index 24.56 (58.97 kg, 154.94 cm) kc 09:39 Pain Scale: Adult kc6 14:15 Pain Scale: Adult cm10 NIH Stroke Scale Scores: 12:29 NIHSS Score: 0 rudolph [place] Coma Score: 12:27 Eye Response: spontaneous(4). Motor Response: obeys commands(6). Verbal Response: rudolph oriented(5). Total: 15. MDM: 09:38 Patient medically screened. rudolph 12:27 Differential diagnosis: cluster headache, cerebral vascular accident, migraine, rudolph sinusitis, subarachnoid bleed, subdural hematoma, temporal arteritis, tension headache, trigeminal neuralgia. Differential Diagnosis altered mental status, sepsis, flu. Data reviewed: vital signs, nurses notes, lab test result(s), EKG, radiologic studies, CT scan, MRI, plain films. Consideration of Admission/Observation Escalation of care including admission/observation considered. I considered the following discharge prescriptions or medication management in the emergency department Medications were administered in the Emergency Department. See MAR. Independent interpretation of the following test(s) in the Emergency Department EKG: See my EKG interpretation above. Test considered but Not performed: Ultrasound no carotid doppler. Historians other than the Patient: pt well informed. Care significantly affected by the following chronic conditions: anxiety, depression, kidney stone. Counseling: I had a detailed discussion with the patient and/or guardian regarding the historical points, exam findings, and any diagnostic results supporting the discharge/admit diagnosis, lab results, radiology results, the need for outpatient follow up, for definitive care, a family practitioner, a neurologist. 05/15 10:21 Order name: Basic Metabolic Panel; Complete Time: 11:49 05/15 10:21 Order name: CBC with Diff 05/15 10:21 Order name: LFT's; Complete Time: 11:49 rudolph 05/15 10:21 Order name: Magnesium; Complete Time: 11:49 [facility] 05/15 10:21 Order name: NT PRO-BNP; Complete Time: 11:49 05/15 10:21 Order name: PT-INR; Complete Time: 11:49 05/15 10:21 Order name: Troponin HS; Complete Time: 11:49 [facility] 05/15 10:21 Order name: Urinalysis w/ reflexes; Complete Time: 12:24 rudolph 05/15 10:21 Order name: PREGU; Complete Time: 12:24 [facility] 05/15 10:21 Order name: XRAY Chest (1 view); Complete Time: 11:49 [facility] 05/15 10:21 Order name: CT Head Brain wo Cont; Complete Time: 12:24 [facility] 05/15 10:21 Order name: CT Head Angio; Complete Time: 12:24 [facility] 05/15 10:21 Order name: CT Neck Angio; Complete Time: 12:24 [facility] 05/15 10:45 Order name: Brain Wo Cont EDUT 05/15 10:21 Order name: EKG; Complete Time: 10:22 05/15 10:21 Order name: Cardiac monitoring; Complete Time: 10:57 rudolph 05/15 10:21 Order name: EKG - Nurse/Tech; Complete Time: 10:57 05/15 10:21 Order name: IV Saline Lock; Complete Time: 10:48 05/15 10:21 Order name: Labs collected and sent; Complete Time: 10:48 05/15 10:21 Order name: O2 Per Protocol; Complete Time: 10:30 05/15 10:21 Order name: O2 Sat Monitoring; Complete Time: 10:30 rudolph EC:26 Rate is 80 beats/min. Rhythm is regular. QRS [place] is Normal. [place] interval is normal. QRS rudolph interval is normal. QT interval is normal. No Q waves. T waves are Normal. No ST changes noted. Clinical impression: Normal ECG and No evidence of ischemia. Interpreted by me. Reviewed by me. Administered Medications: 10:48 Drug: NS 0.9% IV 1000 ml IV at 1 bolus Per protocol; 1000 mL bolus Route: IV; Rate: 1 kc6 bolus; Site: right antecubital; 13:48 Follow up: Response: No adverse reaction; IV Status: Completed infusion; IV Intake: cm10 1000ml 10:48 Drug: fentaNYL (PF) IVP 50 mcg IVP once Route: IVP; Site: right antecubital; kc6 11:53 Follow up: Response: No adverse reaction; Pain is decreased; RASS: Alert and Calm (0) kc6 10:48 Drug: Ondansetron IVP 4 mg IVP once; over 2 minutes Route: IVP; Site: right antecubital;kc6 11:53 Follow up: Response: No adverse reaction; Nausea is decreased kc6 12:51 Drug: morphine IVP or IV 4 mg IVP once over 4 mins Route: IVP; Infused Over: 4 mins; cm10 Site: right antecubital; 14:15 Follow up: Response: No adverse reaction cm10 Disposition Summary: 05/15/23 13:19 Discharge Ordered Notes: Location: Home rudolph Problem: new rudolph Symptoms: have improved rudolph Condition: Stable rudolph Diagnosis - Headache rudolph - Migraine without aura, not intractable rudolph Followup: rudolph - With: Private Physician - When: 2 - 3 days - Reason: Recheck today's complaints, Continuance of care, Re-evaluation by your physician Followup: rudolph - With: Isaiah Centeno MD - When: 2 - 3 days - Reason: Recheck today's complaints, Re-evaluation by your physician Discharge Instructions: - Discharge Summary Sheet rudolph - General Headache Without Cause rudolph - Migraine Headache rudolph - Migraine Headache, [id number] rudolph - General Headache Without Cause, Hjwg-ch-Taxy rudolph Forms: - Medication Reconciliation Form rudolph - Thank You Letter rudolph - Antibiotic Education rudolph - Prescription Opioid Use rudolph - Patient Portal Instructions rudolph - Leadership Thank You Letter [facility] Prescriptions: - ondansetron 4 mg Oral Tablet,disintegrating - take 1 tablet ORAL route every 6-8 hours; 20 tablet; Refills: 0, Product [facility] Selection Permitted - Ibuprofen 600 mg Oral Tablet - take 1 tablet ORAL route every 6 hours As needed take with food; 30 tablet; [facility] Refills: 0, Product Selection Permitted NIH Stroke Scale - NIH Stroke Score Date: 05/15/2023 Time: 12:29 Total Score = 0 10. Dysarthria (speech clarity - read or repeat words) - 0(Normal) 11. Extinction and Inattention (visual/tactile/auditory/spatial/personal) - 0(No abnormality) 1a. Level of Consciousness (LOC) - 0(Alert) 1b. Level of Consciousness (LOC) (Month \T\ Age) - 0(Both) 1c. LOC Commands (Open \T\ Closes Eyes/Superior Court Clerk) - 0(Both) 2. Best Gaze (Lateral Gaze Paresis) - 0(Normal) 3. Visual Field Loss - 0(No visual loss) 4. Facial Palsy - 0(Normal) 5a. Left Arm: Motor (10-second hold) - 0(No drift) 5b. Right Arm: Motor (10-second hold) - 0(No drift) 6a. Left Leg: Motor (5-second hold - always test supine) - 0(No drift) 6b. Right Leg: Motor (5-second hold - always test supine) - 0(No drift) 7. Limb Ataxia (finger/nose \T\ heel/dowell - test with eyes open) - 0(Absent) 8. Sensory Loss (pinprick arms/legs/face) - 0(Normal) 9. Best Language: Aphasia (description/naming/reading) - 0(No aphasia) Initials: [facility] Signatures: Dispatcher [employer] EDJustin Camacho MD MD cha Campbell, Kaitlyn RN RN kc6 Fannie Win RN RN cm10 Corrections: (The following items were deleted from the chart) 10:45 10:22 MR STROKE PROTOCOL+MRI.RAD.CLIFF ordered. EDMS EDMS
--- NOTE | 2023-05-15 13:20 | ER ---
Nurse's Notes [facility] Name: Natanael Dyson Age: 28 yrs Sex: Female : 1995 Arrival Date: 05/15/2023 Time: 09:30 Bed 10 Private MD: Diagnosis: Headache;Migraine without aura, not intractable Presentation: 05/15 09:39 Chief complaint: Patient states: headache with right arm numbness, decreased appetite kc6 x1 week. pt stated she had her gallbladder removed recently. BGL en route 102. Coronavirus screen: At this time, the client does not indicate any symptoms associated with coronavirus-19. Ebola Screen: No symptoms or risks identified at this time. Initial Sepsis Screen: Does the patient meet any 2 criteria? No. Patient's initial sepsis screen is negative. Does the patient have a suspected source of infection? No. Patient's initial sepsis screen is negative. Risk Assessment: Do you want to hurt yourself or someone else? Patient reports no desire to harm self or others. Onset of symptoms was May 15, 2023. 09:39 Method Of Arrival: EMS: [facility] kc6 09:39 Acuity: THIERNO 3 kc6 Triage Assessment: 09:40 Headache History: Denies prior headaches. General: Appears in no apparent distress. kc6 comfortable, well groomed, well developed, Behavior is calm, cooperative, appropriate for age. Pain: Pain currently is 10 out of 10 on a pain scale. EENT: No signs and/or symptoms were reported regarding the EENT system. Neuro: Level of Consciousness is awake, alert, obeys commands, Oriented to person, place, time, situation, Appropriate for age Reports headache numbness in right arm paresthesias in right arm and right leg. Cardiovascular: Capillary refill < 3 seconds. Respiratory: Airway is patent Trachea midline Respiratory effort is even, unlabored, Respiratory pattern is regular, symmetrical. GI: No signs and/or symptoms were reported involving the gastrointestinal system. : No signs and/or symptoms were reported regarding the genitourinary system. Derm: No signs and/or symptoms reported regarding the dermatologic system. Skin is intact, is healthy with good turgor, Skin is pink, warm \T\ dry. Musculoskeletal: No signs and/or symptoms reported regarding the musculoskeletal system. Circulation, motion, and sensation intact. Capillary refill < 3 seconds, Range of motion: intact in all extremities. 14:16 Pain: Complains of pain in head Pain began suddenly, Also complains of no other cm10 associated symptoms. 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 - Social history:: Smoking status: Patient denies any tobacco usage or history of. Screenin:[address] [facility] ED Fall Risk Assessment (Adult) History of falling in the last 3 months, kc6 including since admission No falls in past 3 months (0 pts) Confusion or Disorientation No (0 pts) Intoxicated or Sedated No (0 pts) Impaired Gait No (0 pts) Mobility Assist Device Used No (0 pt) Altered Elimination No (0 pt) Score/Fall Risk Level 0 - 2 = Low Risk. Abuse screen: Denies threats or abuse. Denies injuries from another. Nutritional screening: No deficits noted. Tuberculosis screening: No symptoms or risk factors identified. Assessment: 09:42 Reassessment: please see triage assessment. [facility] 10:42 Reassessment: Patient appears in no apparent distress at this time. No changes from [facility] previously documented assessment. Patient and/or family updated on plan of care and expected duration. Pain level reassessed. Patient is alert, oriented x 3, equal unlabored respirations, skin warm/dry/pink. 11:42 Reassessment: Patient appears in no apparent distress at this time. No changes from kc6 previously documented assessment. Patient and/or family updated on plan of care and expected duration. Pain level reassessed. Patient is alert, oriented x 3, equal unlabored respirations, skin warm/dry/pink. 14:00 Reassessment: Patient appears in no apparent distress at this time. No changes from 10 previously documented assessment. Patient and/or family updated on plan of care and expected duration. Pain level reassessed. Patient is alert, oriented x 3, equal unlabored respirations, skin warm/dry/pink. Patient states feeling better. Patient states symptoms have improved. Pain: Complains of pain in head. Vital Signs: 09:39 BP 132 / 80; Pulse 99; Resp 18 S; Pulse Ox 100% on R/A; Weight 58.97 kg (R); Height 5 kc6 ft. 1 in. (R); Pain 10/10; 14:15 BP 113 / 69; Pulse 93; Resp 18; Pulse Ox 100% on R/A; Pain 5/10; cm10 09:39 Body Mass Index 24.56 (58.97 kg, 154.94 cm) kc6 09:39 Pain Scale: Adult kc6 14:15 Pain Scale: Adult cm10 [place] Coma Score: 12:27 Eye Response: spontaneous(4). Motor Response: obeys commands(6). Verbal Response: rudolph oriented(5). Total: 15. NIH Stroke Scale Scores: 12:29 NIHSS Score: 0 [facility] ED Course: 09:36 Patient arrived in ED. kc6 09:38 Justin Estrella MD is Attending Physician. [facility] 09:39 Daysi Anthony, ROSEY is Primary Nurse. kc6 09:40 Triage completed. kc6 09:40 Arm band placed on. kc6 09:42 Patient has correct armband on for positive identification. Bed in low position. Call kc6 light in reach. Side rails up X 1. Client placed on continuous cardiac and pulse oximetry monitoring. NIBP monitoring applied. 09:42 Patient maintains SpO2 saturation greater than 95% on room air. kc6 10:48 XRAY Chest (1 view) In Process Unspecified. EDMS 11:19 CT Head Brain wo Cont In Process Unspecified. EDMS 11:22 CT Head Angio In Process Unspecified. EDMS 11:22 CT Neck Angio In Process Unspecified. EDMS 11:46 Brain Wo Cont In Process Unspecified. EDMS 13:19 Isaiah Centeno MD is Referral Physician. [facility] 14:15 Provided Education on: Follow-up instructions. . cm10 14:16 No provider procedures requiring assistance completed. IV discontinued, intact, cm10 bleeding controlled, No redness/swelling at site. Pressure dressing applied. Administered Medications: 10:48 Drug: NS 0.9% IV 1000 ml IV at 1 bolus Per protocol; 1000 mL bolus Route: IV; Rate: 1 kc6 bolus; Site: right antecubital; 13:48 Follow up: Response: No adverse reaction; IV Status: Completed infusion; IV Intake: cm10 1000ml 10:48 Drug: fentaNYL (PF) IVP 50 mcg IVP once Route: IVP; Site: right antecubital; kc6 11:53 Follow up: Response: No adverse reaction; Pain is decreased; RASS: Alert and Calm (0) kc6 10:48 Drug: Ondansetron IVP 4 mg IVP once; over 2 minutes Route: IVP; Site: right antecubital;kc6 11:53 Follow up: Response: No adverse reaction; Nausea is decreased kc6 12:51 Drug: morphine IVP or IV 4 mg IVP once over 4 mins Route: IVP; Infused Over: 4 mins; cm10 Site: right antecubital; 14:15 Follow up: Response: No adverse reaction cm10 Medication: 14:16 VIS not applicable for this client. cm10 Intake: 13:48 IV: 1000ml; Total: 1000ml. cm10 Outcome: 13:19 Discharge ordered by . rudolph 14:17 Discharged to home ambulatory, with family, cm10 14:17 Condition: good 14:17 Discharge instructions given to patient, Instructed on discharge instructions, follow up and referral plans. medication usage, Demonstrated understanding of instructions, follow-up care, medications, Prescriptions given X 2, 14:17 Patient left the ED. cm10 NIH Stroke Scale - NIH Stroke Score Date: 05/15/2023 Time: 12:29 Total Score = 0 10. Dysarthria (speech clarity - read or repeat words) - 0(Normal) 11. Extinction and Inattention (visual/tactile/auditory/spatial/personal) - 0(No abnormality) 1a. Level of Consciousness (LOC) - 0(Alert) 1b. Level of Consciousness (LOC) (Month \T\ Age) - 0(Both) 1c. LOC Commands (Open \T\ Closes Eyes/Super[employer] Buildings) - 0(Both) 2. Best Gaze (Lateral Gaze Paresis) - 0(Normal) 3. Visual Field Loss - 0(No visual loss) 4. Facial Palsy - 0(Normal) 5a. Left Arm: Motor (10-second hold) - 0(No drift) 5b. Right Arm: Motor (10-second hold) - 0(No drift) 6a. Left Leg: Motor (5-second hold - always test supine) - 0(No drift) 6b. Right Leg: Motor (5-second hold - always test supine) - 0(No drift) 7. Limb Ataxia (finger/nose \T\ heel/dowell - test with eyes open) - 0(Absent) 8. Sensory Loss (pinprick arms/legs/face) - 0(Normal) 9. Best Language: Aphasia (description/naming/reading) - 0(No aphasia) Initials: rudolph Signatures: Dispatcher [employer] Justin Pinto MD MD cha Campbell, Kaitlyn, RN RN kc6 Fannie Win RN RN cm10
--- NOTE | 2023-05-15 13:52 | RAD REPORT ---
EXAM DESCRIPTION: MRI - Brain Wo Cont - 05/15/2023 11:53 am CLINICAL HISTORY: DIZZINESS COMPARISON: Head CT and CT angiogram of the same day TECHNIQUE: Multiplanar multisequence MRI of the brain performed without IV contrast. FINDINGS: No evidence of acute infarct or other diffusion signal abnormality. No evidence of acute intracranial hemorrhage or abnormal extra-axial fluid collections. Ventricular caliber within normal for age. Midline structures are unremarkable. No white matter signal abnormalities. No mass effect or midline shift. Major vascular flow voids are preserved. Mastoid air cells and paranasal sinuses are clear. IMPRESSION: No acute intracranial process. No evidence of ventriculomegaly or mass effect.
[2023-05-15 14:23] VITALS: BP 113/69; O2SAT 100
--- NOTE | 2023-05-17 13:43 | EKG ---
Test Date: 2023-05-15 Test Time: 10:54:28 Technical Sales Specialist: CYRUS MEASUREMENT RESULTS: Intervals: Rate: 80 CT: 124 QRSD: 88 QT: 382 QTc: 440 [place]: P: 46 CT: 124 QRS: 70 T: 41 INTERPRETIVE STATEMENTS: Normal sinus rhythm with sinus arrhythmia Cannot rule out Anterior infarct, age undetermined Abnormal ECG Compared to ECG 10/23/2022 08:32:09 Myocardial infarct finding now present Electronically Signed On 05-17-23 13:39:57 FIELD SERVICE TECHNICIAN POULTRY by Antoni Nixon
== END ==
LOC: ER 09:30
DX: G43.909 Migraine, unspecified, not intractable, without status migrainosus (principal); Z88.8 Allergy status to other drugs, medicaments and biological substances
CPT/HCPCS: 36415; 70450; 70496; 70498; 70551; 71045; 80048; 80076; 81003; 81025; 83735; 83880; 84484; 85025; 85610; 93005; 96361; 96374; 96375; 99285; J2405; J3010; J7030; Q9967

== ENCOUNTER → 2023-05-18 | Emergency (ER) | payer SELFPAY ==
[~2023-05-18] MED LIST changes: +FAMOTIDINE 20 MG/2 ML VIAL IV ONE; -FENTANYL CITR 100 MCG/2 ML ONE; +HYDROCODONE/APAP 5/325 MG TAB ONE
--- OUTSIDE RECORDS SUMMARY | 2023-05-18 07:27 | XMS REPORT | Continuity of Care Document ---
Author Name Unknown Address [address] [facility] [address] [place] [address] [facility] Address [address] [facility] [address] [place] [address] Care Team Providers Care Ergonomics Engineer Name Role Phone ERICKSON_R Attending Clinician Unavailable Alissa Rosales Attending Clinician [phone] Dev PAC, K Sharlene Attending Clinician [phone] Doctor Unassigned, [place] Attending Clinician U sen Quiñonez MD, Shelia Oneal Attending Clinician [phone] Krystle FELIX, Anna Ricketts Attending Clinician [phone] Coretta FELIX, [place] Attending Clinician [phone] ERICKSON_R Admitting Clinician Unavailable Encounters Start Date/Time End Date/Time Encounter Type Admission Type Attending Clinicians Care Facility Care Department Encounter ID Source 2023-02-14 12:59:23 2023-02-14 12:59:23 Outpatient SFA SFA [id number] Willis Rivera Jeffery 2023-02-06 18:19:02 2023-02-06 18:19:02 Outpatient SFA SFA [id number] Willis Rivera Jeffery 2023-01-30 00:00:00 2023-01-30 00:00:[address] [facility] [id number] [facility] 2022-12-28 00:00:00 2022-12-28 00:00:[address] [facility] [id number] 2022-12-14 18:37:13 2022-12-14 18:37:13 Outpatient [facility] [id number] Willis Gil 2022-12-13 00:00:00 2022-12-13 00:00:[address]ILL_R [facility] [id number] [facility] 2022-11-18 10:08:00 2022-11-18 10:08:00 Outpatient S[facility] [id number] Willis Gil 2022-11-09 15:26:18 2022-11-09 15:26:18 Outpatient [facility] [id number] Willis Gil 2020-11-10 18:42:46 2020-11-10 19:53:[address] [facility] Building One 1.840.114 350.1.13.10 4.2.7.2.686 [id number] 2020-10-31 18:52:00 2020-10-31 22:15:00 Emergency Dev Kaycee [facility] [id number] 350.1.13.10 4.2.7.2.686 [id number] 2020-10-31 00:00:00 2020-10-31 00:00:00 Orders Only Doctor Unassigned, [place] [facility] 1.2840.114 350.1.13.10 4.2.7.2.686 [id number] 2020-10-20 14:02:00 2020-10-20 17:13:00 Emergency Dev Kaycee [facility] 1.2840.114 350.1.13.10 4.2.7.2.686 [id number] 2020-10-14 10:00:00 2020-10-14 23:59:00 Hospital Encounter Shelia Quiñonez [facility] [id number] 350.1.13.10 4.2.7.2.686 [id number] 2020-10-09 12:00:00 2020-10-09 15:57:00 Emergency Anna Dalton [facility] 1.840.114 350.1.13.10 4.2.7.2.686 [id number] 2020-10-06 08:53:00 2020-10-06 09:46:44 Office Visit Shelia Quiñonez [facility] Building 1..114 350.1.13.10 4.2.7.2.686 [id number] 2020-03-04 00:00:00 2020-03-04 00:00:00 Lopez Barnes [facility] 1..114 350.1.13.10 4.2.7.2.686 [id number]
[2023-05-18 08:33] LABS: Specific Gravity 1.011 (1.005-1.030)
[2023-05-18 08:44] LABS: Specific Gravity 1.011 (1.005-1.030); Urine Bacteria None Seen /HPF (<20); Urine Bilirubin NEGATIVE (Negative); Urine Blood 3+ (OVER) (Negative); Urine Clarity Extremely Turbid (Clear); Urine Color Colorless (Yellow); Urine Glucose NEGATIVE (Negative); Urine Mucus Slight /HPF (None Seen); Urine Protein NEGATIVE (Negative); Urine RBC >50 /HPF (None Seen); Urine Urobilinogen Normal (Normal)
[2023-05-18 08:45] LABS: Absolute Lymphocytes (CBC) 1.5 K/uL (0.7-4.9); Hematocrit 40.4 % (36.0-45.0); Lymphocytes % 19.7 % (15.3-44.8); MPV 7.9 fL (7.6-11.3); Platelets 391 thou/uL (152-406); RBC Red Blood Cell Count 4.64 M/uL (3.86-4.86)
--- NOTE | 2023-05-18 08:58 | RAD REPORT ---
EXAM DESCRIPTION: CT - Abdomen Pelvis Wo Contrast - 05/18/2023 8:37 am CLINICAL HISTORY: Abdominal pain. ABD PAIN COMPARISON: Stone Protocol dated 05/13/2023 TECHNIQUE: CT imaging of the abdomen and pelvis was performed without contrast. Solid organ, bowel a nd vascular assessment is limited due to lack of IV and oral contrast. All CT scans are performed using dose optimization technique as appropriate and may include automated exposure control or mA/KV adjustment according to patient size. FINDINGS: The lower lung barney are clear.Cholecystectomy clips. The liver, spleen, pancreas, adrenal glands and left kidney are within normal limits for a limited no n-contrast examination.2 mm stone is present in the superior calyx of the right kidney without hydron ephrosis. No bowel obstruction, free air, free fluid or abscess. Moderate stool is present throughout the colon . The appendix is normal. The osseous structures are within normal limits. IMPRESSION: 2 mm calculus superior calyx right kidney, unchanged in position since prior study. No h ydronephrosis or additional stones seen bilaterally. A limited non-contrast examination was performed as detailed.
[2023-05-18 09:09] LABS: Albumin 3.9 g/dL (3.4-5.0); Bilirubin Total 0.3 mg/dL (0.2-1.0); Protein, Total 7.7 g/dL (6.4-8.2)
[2023-05-18 09:18] LABS: Potassium 3.8 mEq/L (3.5-5.1)
--- NOTE | 2023-05-18 09:23 | EDPHYS ---
Physician Documentation [facility] Name: Natanael Dyson Age: 28 yrs Sex: Female : 1995 Arrival Date: 05/18/2023 Time: 07:23 Bed 7 Private MD: ED Physician Diaz Arizmendi HPI: 05/18 08:03 This 28 yrs old Female presents to ER via Ambulatory with complaints of ec2 Abdominal Pain, Nausea. 08:03 Patient arrives today for persistent abdominal pain. Patient has been having symptoms ec2 at least for the last week. Reports that it is upper abdominal. Patient reports associated nausea and vomiting without diarrhea. Patient has been taking Zofran with minimal alleviation in symptoms. Patient reports no alcohol or drug use. Patient has been here twice this past week for the same or similar symptoms.External records show the patient had a reassuring workup with a reassuring CBC and metabolic profile with no evidence of renal dysfunction, urine preg that was negative, urine that is noninfectious appearing. Patient also had a CT scan of the abdomen pelvis small nonobstructing right renal calculi. Patient pain today is more upper abdominal. . Historical: - Allergies: 07:45 Compazine; hb 07:45 Haldol; hb 07:45 Reglan; hb 07:45 Toradol; hb - Home Meds: 07:45 None [Active]; hb - PMHx: 07:45 Anxiety; breast cancer (Ligation of fallopi); depressive disorder; Kidney stone; hb - PSHx: 07:45 Cholecystectomy; Ligation of fallopian tube; hb - Immunization history:: Client reports having NOT received the Covid vaccine. Flu vaccine is not up to date. It has been more than one year since last vaccine. - Social history:: Smoking status: Patient denies any tobacco usage or history of. ROS: 08:06 Constitutional: as per hpi ec2 Exam: 08:06 Constitutional: GEN: NAD Head: atraumatic Eyes: EOMI Ears: External ears are ec2 normal. CV: Tachycardia LUNGS: no respiratory distress ABD: non-distended, soft, no guarding, generally tender. SKIN: no evidence of rashes MSK: no evidence of trauma NEURO: moves all extremities equally Vital Signs: 07:43 BP 145 / 96; Pulse 124; Resp 16; Temp 98.2(O); Pulse Ox 100% on R/A; Weight 58.97 kg; hb Height 5 ft. 1 in. ; Pain 9/10; 08:54 BP 130 / 90; Pulse 108; Resp 18; Pulse Ox 98% on R/A; ph 09:46 BP 128 / 89; Pulse 98; Resp 18; Temp 98.2; Pulse Ox 99% ; ph 07:43 Body Mass Index 24.56 (58.97 kg, 154.94 cm) hb 07:43 Pain Scale: Adult hb MDM: 07:50 Patient medically screened. ec2 08:06 Data reviewed: vital signs. ED course: Patient arrives today for evaluation of ec2 generalized abdominal pain. External workup reviewed as per HPI. Will obtain repeat lab work, CT imaging and reassess the patient, will give the patient antiemetic, crystalloid, morphine for symptom control. Suspect gastroenteritis, possible gastritis, with suspicion for given recent negative testing. Low suspicion for pancreatitis.. 09:01 ED course: CBC is reassuring. Urine is pertinent for small amount of leuk esterase and ec2 RBCs. testing is negative. CT imaging shows a unchanged 2 mm kidney stone. Otherwise no acute intra-abdominal process identified. . 09:21 ED course: Metabolic profile is reassuring, lipase is within appropriate ranges. ec2 Ultimately patient complains of persistent pain, patient has chronic abdominal pain has been here several times for the same complaint with no acute findings identified. I do not suspect the nonobstructing kidney stone is the acute cause of the patient's symptoms. Patient is to follow-up with primary doctor as well as pain management and GI doctor. Will discharge, return precautions given.. 05/18 07:51 Order name: CBC with Diff; Complete Time: 09:01 ec2 05/18 07:51 Order name: CMP; Complete Time: 09:21 ec2 05/18 07:51 Order name: Lipase; Complete Time: 09:21 ec2 05/18 07:51 Order name: Test, Urine; Complete Time: 09:01 ec2 05/18 07:51 Order name: Urinalysis w/ reflexes; Complete Time: 09:01 ec2 05/18 07:51 Order name: CT Abd/Pelvis - Without Contrast; Complete Time: 09:01 ec2 05/18 07:51 Order name: IV Saline Lock; Complete Time: 08:36 ec2 05/18 07:51 Order name: Labs collected and sent; Complete Time: 08:36 ec2 Administered Medications: 08:36 Drug: NS 0.9% IV 1000 ml IV at 1 bolus Per protocol; 1000 mL bolus Route: IV; Rate: 1 ph bolus; Site: left antecubital; 09:33 Follow up: IV Status: Completed infusion; IV Intake: 1000ml ph 08:37 Drug: Famotidine IVP 20 mg IVP once; dilute with 10 mL 0.9% NaCl; give over 2 minutes ph Route: IVP; Site: left antecubital; 09:33 Follow up: Response: No adverse reaction ph 08:37 Drug: Ondansetron IVP 4 mg IVP once; over 2 minutes Route: IVP; Site: left antecubital; ph 09:33 Follow up: Response: No adverse reaction ph 08:37 Drug: morphine IVP or IV 4 mg IVP once over 4 mins Route: IVP; Infused Over: 4 mins; ph Site: left antecubital; 09:33 Follow up: Response: No adverse reaction ph 09:33 Drug: HYDROcodone-acetaminophen PO 5 mg-325 mg 1 tabs PO once Route: PO; ph 09:33 Follow up: Response: No adverse reaction ph Disposition Summary: 05/18/23 09:23 Discharge Ordered Notes: Location: Home ec2 Condition: Stable ec2 Diagnosis - Other chronic pain ec2 - Abdominal pain, Generalized ec2 Followup: ec2 - With: Private Physician - When: - Reason: Re-evaluation by your physician Discharge Instructions: - Discharge Summary Sheet ec2 - Chronic Pain, Adult ec2 Forms: - Medication Reconciliation Form ec2 - Thank You Letter ec2 - Antibiotic Education ec2 - Prescription Opioid Use ec2 - Patient Portal Instructions ec2 - Leadership Thank You Letter ec2 Signatures: Dispatcher [employer] Viktoriya Simpson RN RN ph Judi Rich RN RN Diaz Arizmendi MD MD ec2 Corrections: (The following items were deleted from the chart) 08:04 08:03 Patient arrives today for persistent abdominal pain. Patient has been having ec2 symptoms. ec2 08:06 08:03 Patient arrives today for persistent abdominal pain. Patient has been having ec2 symptoms at least for the last week. Reports that it is upper abdominal. Patient reports associated nausea and vomiting without diarrhea. Patient has been taking Zofran with minimal alleviation in symptoms. Patient reports no alcohol or drug use. Patient has been here twice this past week for the same or similar symptoms.. ec2
--- NOTE | 2023-05-18 09:23 | ER ---
Nurse's Notes [facility] Name: Natanael Dyson Age: 28 yrs Sex: Female : 1995 Arrival Date: 05/18/2023 Time: 07:23 Bed 7 Private MD: Diagnosis: Other chronic pain;Abdominal pain, Generalized Presentation: 05/18 07:43 Chief complaint: Upper abdominal pain and N/V x 10 days. Coronavirus screen: At this hb time, the client does not indicate any symptoms associated with coronavirus-19. Ebola Screen: No symptoms or risks identified at this time. Initial Sepsis Screen: Does the patient meet any 2 criteria? HR > 90 bpm. No. Patient's initial sepsis screen is negative. Does the patient have a suspected source of infection? No. Patient's initial sepsis screen is negative. Risk Assessment: Do you want to hurt yourself or someone else? Patient reports no desire to harm self or others. Onset of symptoms was May 08, 2023. 07:43 Method Of Arrival: Ambulatory hb 07:43 Acuity: THIERNO 3 hb Historical: - Allergies: 07:45 Compazine; hb 07:45 Haldol; hb 07:45 Reglan; hb 07:45 Toradol; hb - Home Meds: 07:45 None [Active]; hb - PMHx: 07:45 Anxiety; breast cancer (Ligation of fallopi); depressive disorder; Kidney stone; hb - PSHx: 07:45 Cholecystectomy; Ligation of fallopian tube; hb - Immunization history:: Client reports having NOT received the Covid vaccine. Flu vaccine is not up to date. It has been more than one year since last vaccine. - Social history:: Smoking status: Patient denies any tobacco usage or history of. Screenin:56 [facility] ED Fall Risk Assessment (Adult) History of falling in the last 3 months, ph including since admission No falls in past 3 months (0 pts) Score/Fall Risk Level 0 - 2 = Low Risk Oriented to surroundings, Maintained a safe environment, Provided non-skid footwear, Hourly rounding (assess needs \T\ fall precautionary measures) done. Abuse screen: Denies threats or abuse. Denies injuries from another. Nutritional screening: No deficits noted. Tuberculosis screening: No symptoms or risk factors identified. Assessment: 08:54 Reassessment: Patient appears in no apparent distress at this time. Patient and/or ph family updated on plan of care and expected duration. Pain level reassessed. Patient is alert, oriented x 3, equal unlabored respirations, skin warm/dry/pink. Pt continues to c/o abdominal pain, ERP notified. Vital Signs: 07:43 BP 145 / 96; Pulse 124; Resp 16; Temp 98.2(O); Pulse Ox 100% on R/A; Weight 58.97 kg; hb Height 5 ft. 1 in. ; Pain 9/10; 08:54 BP 130 / 90; Pulse 108; Resp 18; Pulse Ox 98% on R/A; ph 09:46 BP 128 / 89; Pulse 98; Resp 18; Temp 98.2; Pulse Ox 99% ; ph 07:43 Body Mass Index 24.56 (58.97 kg, 154.94 cm) hb 07:43 Pain Scale: Adult hb ED Course: 07:28 Patient arrived in ED. mg5 07:45 Triage completed. hb 07:46 Arm band placed on. hb 07:47 Diaz Arizmendi MD is Attending Physician. ec2 07:55 Viktoriya Jaramillo, ROSEY is Primary Nurse. ph 08:05 Missed attempt(s): 22 gauge in right antecubital area. Bleeding controlled, band aid ph applied, catheter tip intact. 08:10 Inserted saline lock: 22 gauge in left antecubital area, using aseptic technique. Blood ph collected. 08:39 CT Abd/Pelvis - Without Contrast In Process Unspecified. EDMS 08:56 Patient has correct armband on for positive identification. Bed in low position. Call ph light in reach. Pulse ox on. NIBP on. Door closed. Noise minimized. Warm blanket given. Pillow given. 09:33 No provider procedures requiring assistance completed. IV discontinued, intact, ph bleeding controlled, No redness/swelling at site. Pressure dressing applied. Administered Medications: 08:36 Drug: NS 0.9% IV 1000 ml IV at 1 bolus Per protocol; 1000 mL bolus Route: IV; Rate: 1 ph bolus; Site: left antecubital; 09:33 Follow up: IV Status: Completed infusion; IV Intake: 1000ml ph 08:37 Drug: Famotidine IVP 20 mg IVP once; dilute with 10 mL 0.9% NaCl; give over 2 minutes ph Route: IVP; Site: left antecubital; 09:33 Follow up: Response: No adverse reaction ph 08:37 Drug: Ondansetron IVP 4 mg IVP once; over 2 minutes Route: IVP; Site: left antecubital; ph 09:33 Follow up: Response: No adverse reaction ph 08:37 Drug: morphine IVP or IV 4 mg IVP once over 4 mins Route: IVP; Infused Over: 4 mins; ph Site: left antecubital; 09:33 Follow up: Response: No adverse reaction ph 09:33 Drug: HYDROcodone-acetaminophen PO 5 mg-325 mg 1 tabs PO once Route: PO; ph 09:33 Follow up: Response: No adverse reaction ph Medication: 08:56 VIS not applicable for this client. ph Intake: 09:33 IV: 1000ml; Total: 1000ml. ph Outcome: 09:23 Discharge ordered by . ec2 09:47 Discharged to home ambulatory, with significant other, ph 09:47 Condition: good 09:47 Discharge instructions given to patient, Instructed on discharge instructions, follow up and referral plans. Demonstrated understanding of instructions, follow-up care, 09:48 Patient left the ED. ph Signatures: Dispatcher [employer] Viktoriya Simpson RN RN ph Baxter, Heather, RN RN Lashanda Fitch mg5 Diaz Arizmendi MD MD ec2
[2023-05-18 10:53] VITALS: BP 128/89; TEMP 98.2; O2SAT 99
== END ==
LOC: ER 07:23
DX: G89.29 Other chronic pain (principal); R10.84 Generalized abdominal pain
CPT/HCPCS: 36415; 74176; 80053; 81001; 81025; 83690; 85025; 96361; 96374; 96375; 99284; J2405; J7030

== ENCOUNTER → 2023-05-20 | Emergency (ER) | payer SELFPAY ==
[~2023-05-20] MED LIST changes: +DICYCLOMINE HCL 10 MG CAP ONE; +FAMOTIDINE 20 MG TAB ONE; -FAMOTIDINE 20 MG/2 ML VIAL IV ONE; -HYDROCODONE/APAP 5/325 MG TAB ONE; -MORPHINE 4 MG/ML SYR ONE; -NA CHLORIDE 0.9% 1,000 ML ONE; -ONDANSETRON 4 MG/2 ML VIAL ONE; +SIMETHICONE 80 MG CHEWABLE TAB ONE; +SUCRALFATE 1 GM TABLET ONE
--- OUTSIDE RECORDS SUMMARY | 2023-05-20 21:34 | XMS REPORT | Continuity of Care Document ---
Author Name Unknown Address [address] [facility] [address] [place] [address] [facility] Address [address] [facility] [address] [place] [address] Care Team Providers Care Assistant Branch Operations Manager Name Role Phone ERICKSON_R Attending Clinician Unavailable Alissa Rosales Attending Clinician [phone] Dev PAC, K Sharlene Attending Clinician [phone] Doctor Unassigned, [place] Attending Clinician U sen Quiñonez MD, Shelia Oneal Attending Clinician [phone] Krystle FELIX, Anna Ricketts Attending Clinician [phone] Coretta FELIX, Lopez Attending Clinician [phone] ERICKSON_R Admitting Clinician Unavailable Encounters Start Date/Time End Date/Time Encounter Type Admission Type Attending Clinicians Care Facility Care Department Encounter ID Source 2023-02-14 12:59:23 2023-02-14 12:59:23 Outpatient SFA SFA [id number] Willis Rivera Jeffery 2023-02-06 18:19:02 2023-02-06 18:19:02 Outpatient SFA SFA [id number] Willis Rivera Jeffery 2023-01-30 00:00:00 2023-01-30 00:00:00 Outpatient ERICKSON_R [facility] [id number] [facility] 2022-12-28 00:00:00 2022-12-28 00:00:00 Outpatient ERICKSON_R [facility] [id number] [facility] 2022-12-14 18:37:13 2022-12-14 18:37:13 Outpatient [facility] [id number] Willis Gil 2022-12-13 00:00:00 2022-12-13 00:00:00 Outpatient BILL_R [facility] [id number] [facility] 2022-11-18 10:08:00 2022-11-18 10:08:[address] [facility] [id number] Willis Gil 2022-11-09 15:26:18 2022-11-09 15:26:18 Outpatient [facility] [id number] Willis Gil 2020-11-10 18:42:46 2020-11-10 19:53:43 Urgent Care [facility] One 1.840.114 350.1.13.10 4.2.7.2.686 [id number] 2020-10-31 18:52:00 2020-10-31 22:15:00 Emergency Dev Kaycee [facility] 1.2840.114 350.1.13.10 4.2.7.2.686 [id number] 2020-10-31 00:00:00 2020-10-31 00:00:00 Orders Only Doctor Unassigned, [place] [facility] 1.2840.114 350.1.13.10 4.2.7.2.686 [id number] 2020-10-20 14:02:00 2020-10-20 17:13:00 Emergency Dev Kaycee [facility] 1.2840.114 350.1.13.10 4.2.7.2.686 [id number] 2020-10-14 10:00:00 2020-10-14 23:59:00 Hospital Encounter Shelia Quiñonez [facility] 1.2.840.114 350.1.13.10 4.2.7.2.686 [id number] 2020-10-09 12:00:00 2020-10-09 15:57:00 Emergency Anna Dalton [facility] 1.840.114 350.1.13.10 4.2.7.2.686 [id number] 2020-10-06 08:53:00 2020-10-06 09:46:44 Office Visit Shelia Quiñonez [facility] Building 1..114 350.1.13.10 4.2.7.2.686 [id number] 2020-03-04 00:00:00 2020-03-04 00:00:00 Lopez Barnes [facility] 1..114 350.1.13.10 4.2.7.2.686 [id number]
--- NOTE | 2023-05-20 22:57 | ER ---
Nurse's Notes [facility] Name: Natanael Dyson Age: 28 yrs Sex: Female : 1995 Arrival Date: 05/20/2023 Time: 21:30 Bed DIS3 Private MD: Diagnosis: Upper abdominal pain, unspecified Presentation: 05/20 21:38 Chief complaint: Patient states: SEEN FOR SAME "THE OTHER DAY", SENT BY PCP FOR SAME bp S/S. Coronavirus screen: At this time, the client does not indicate any symptoms associated with coronavirus-19. Ebola Screen: No symptoms or risks identified at this time. Initial Sepsis Screen: Does the patient meet any 2 criteria? No. Patient's initial sepsis screen is negative. Does the patient have a suspected source of infection? No. Patient's initial sepsis screen is negative. Risk Assessment: Do you want to hurt yourself or someone else? Patient reports no desire to harm self or others. Onset of symptoms is unknown. 21:38 Method Of Arrival: Ambulatory bp 21:38 Acuity: THIERNO 3 bp Triage Assessment: 21:39 General: Appears distressed, Behavior is cooperative, appropriate for age, anxious. bp Pain: Complains of pain in left flank. Historical: - Allergies: 21:39 Compazine; bp 21:39 Haldol; bp 21:39 Reglan; bp 21:39 Toradol; bp - PMHx: 21:39 Anxiety; breast cancer (Ligation of fallopi); depressive disorder; Kidney stone; bp - PSHx: 21:39 Cholecystectomy; Ligation of fallopian tube; bp - Immunization history:: Adult Immunizations up to date. - Social history:: Smoking status: unknown. Screenin:33 [facility] ED Fall Risk Assessment (Adult) History of falling in the last 3 months, tm6 including since admission No falls in past 3 months (0 pts). Abuse screen: Denies threats or abuse. Denies injuries from another. Nutritional screening: No deficits noted. Tuberculosis screening: No symptoms or risk factors identified. Assessment: 22:33 General: Appears uncomfortable, Behavior is cooperative, crying. Pain: Complains of tm6 pain in left breast and anterior aspect of left upper chest and left upper quadrant and left flank. Neuro: Level of Consciousness is awake, alert, obeys commands, Oriented to person, place, time, situation. Cardiovascular: Capillary refill < 3 seconds Patient's skin is warm and dry. Respiratory: Airway is patent Respiratory effort is even, unlabored, Respiratory pattern is regular, symmetrical. : No signs and/or symptoms were reported regarding the genitourinary system. EENT: No signs and/or symptoms were reported regarding the EENT system. Derm: No signs and/or symptoms reported regarding the dermatologic system. Vital Signs: 21:38 BP 131 / 85; Pulse 100; Resp 18; Temp 98.5; Pulse Ox 100% ; bp ED Course: 21:32 Patient arrived in ED. jj6 21:36 Cr[facility] Rojas [facility]C [facility] snw 21:36 Brodie Mota MD is Attending Physician. snw 21:39 Triage completed. bp 21:39 Arm band placed on. bp 22:33 Patient has correct armband on for positive identification. Provided Education on: tm6 medications. 22:33 No provider procedures requiring assistance completed. tm6 23:20 Patient did not have IV access during this emergency room visit. pf1 Administered Medications: 22:00 Drug: Simethicone PO 240 mg PO once Route: PO; pf1 22:02 Not Given (Patient Refused): [id number] mg PO once pf1 22:13 Drug: Famotidine PO 20 mg PO once Route: PO; pf1 22:33 Drug: Sucralfate PO 1 grams PO once Route: PO; tm6 Medication: 22:33 VIS not applicable for this client. tm6 Outcome: 22:56 Discharge ordered by . snw 23:20 Discharged to home ambulatory, pf1 23:20 Condition: stable pf1 23:20 Discharge instructions given to patient, Instructed on discharge instructions, follow up and referral plans. Demonstrated understanding of instructions, follow-up care, medications, Prescriptions given X 2, 23:29 Patient left the ED. pf1 Signatures: Christy Rojas FNP-C FNP-Jayy Dumont, RN RN Gisela Anguiano jj6 Olamide Caicedo RN RN pf1 Mj Jorgensen RN RN tm6
--- NOTE | 2023-05-20 22:57 | EDPHYS ---
Physician Documentation [facility] Name: Natanael Dyson Age: 28 yrs Sex: Female : 1995 Arrival Date: 05/20/2023 Time: 21:30 Bed DIS3 Private MD: ED Physician Brodie Mota HPI: 05/20 21:56 This 28 yrs old Female presents to ER via Ambulatory with complaints of LEFT SIDE PAIN. snw 21:56 The patient presents with abdominal pain in the left upper quadrant. Onset: The snw symptoms/episode began/occurred acutely. The symptoms radiate to anterior aspect of left upper chest and left breast. Associated signs and symptoms: none. The symptoms are described as sharp. Severity of pain: At its worst the pain was moderate. It is unknown whether or not the patient has had similar symptoms in the past. The patient has been recently seen by a physician: this is pt's 4th visit in 8 days to the ED. Historical: - Allergies: 21:39 Compazine; bp 21:39 Haldol; bp 21:39 Reglan; bp 21:39 Toradol; bp - PMHx: 21:39 Anxiety; breast cancer (Ligation of fallopi); depressive disorder; Kidney stone; bp - PSHx: 21:39 Cholecystectomy; Ligation of fallopian tube; bp - Immunization history:: Adult Immunizations up to date. - Social history:: Smoking status: unknown. ROS: 21:54 Eyes: Negative for injury, pain, redness, and discharge, ENT: Negative for injury, snw pain, and discharge, Neck: Negative for injury, pain, and swelling, Cardiovascular: Negative for chest pain, palpitations, and edema, Respiratory: Negative for cough, wheezing, and pleuritic chest pain, Pt states her stomach pain makes her feel short of breath Back: Negative for injury and pain, : Negative for injury, bleeding, discharge, and swelling, MS/Extremity: Negative for injury and deformity, Skin: Negative for injury, rash, and discoloration, Neuro: Negative for headache, weakness, numbness, tingling, and seizure, Psych: Negative for depression, anxiety, suicide ideation, homicidal ideation, and hallucinations, 21:54 Constitutional: Positive for body aches, malaise, 21:54 Abdomen/GI: Positive for abdominal pain, of the left upper quadrant, Exam: 21:53 Head/Face: Normocephalic, atraumatic. Eyes: Pupils equal round and reactive to light, snw extra-ocular motions intact. Lids and lashes normal. Conjunctiva and sclera are non-icteric and not injected. Cornea within normal limits. Periorbital areas with no swelling, redness, or edema. ENT: Nares patent. No nasal discharge, no septal abnormalities noted. Tympanic membranes are normal and external auditory canals are clear. Oropharynx with no redness, swelling, or masses, exudates, or evidence of obstruction, uvula midline. Mucous membranes moist. Neck: Trachea midline, no thyromegaly or masses palpated, and no cervical lymphadenopathy. Supple, full range of motion without nuchal rigidity, or vertebral point tenderness. No Meningismus. Chest/axilla: Normal chest wall appearance and motion. Nontender with no deformity. No lesions are appreciated. Cardiovascular: Regular rate and rhythm with a normal S1 and S2. No gallops, murmurs, or rubs. Normal PMI, no JVD. No pulse deficits. Respiratory: Lungs have equal breath sounds bilaterally, clear to auscultation and percussion. No rales, rhonchi or wheezes noted. No increased work of breathing, no retractions or nasal flaring. Back: No spinal tenderness. No costovertebral tenderness. Full range of motion. Skin: Warm, dry with normal turgor. Normal color with no rashes, no lesions, and no evidence of cellulitis. MS/ Extremity: Pulses equal, no cyanosis. Neurovascular intact. Full, normal range of motion. Neuro: Awake and alert, GCS 15, oriented to person, place, time, and situation. Cranial nerves II-XII grossly intact. Motor strength 5/5 in all extremities. Sensory grossly intact. Cerebellar exam normal. Normal gait. Psych: Awake, alert, with orientation to person, place and time. Behavior, mood, and affect are within normal limits. 21:53 Constitutional: The patient appears awake, anxious, restless, uncomfortable, 21:53 Abdomen/GI: Inspection: abdomen appears normal, Bowel sounds: normal, Palpation: mild abdominal tenderness, in the left upper quadrant, Vital Signs: 21:38 BP 131 / 85; Pulse 100; Resp 18; Temp 98.5; Pulse Ox 100% ; bp MDM: 21:50 Patient medically screened. snw 22:59 Differential diagnosis: cholecystitis, Cholelithiasis, gastritis, non-specific abd snw pain, Pyelonephritis, Ureterolithiasis, urinary tract infection. Data reviewed: vital signs, nurses notes. I considered the following discharge prescriptions or medication management in the emergency department Medications were administered in the Emergency Department. See MAR. Counseling: I had a detailed discussion with the patient and/or guardian regarding the historical points, exam findings, and any diagnostic results supporting the discharge/admit diagnosis, the need for outpatient follow up, for definitive care, a family practitioner, a food management aide. ED course: Pt has been here 4 times this week, lab work negative, has also been to [facility] - has negative CT result on phone, also had a CT here this week with negative results. I told patient I would not image her further this week second to risk to her health. Administered Medications: 22:00 Drug: Simethicone PO 240 mg PO once Route: PO; pf1 22:02 Not Given (Patient Refused): [id number] mg PO once pf1 22:13 Drug: Famotidine PO 20 mg PO once Route: PO; pf1 22:33 Drug: Sucralfate PO 1 grams PO once Route: PO; tm6 Disposition Summary: 05/20/23 22:56 Discharge Ordered Notes: Location: Home snw Condition: Stable snw Diagnosis - Upper abdominal pain, unspecified snw Followup: snw - With: Emergency Department - When: As needed - Reason: Worsening of condition Followup: snw - With: Private Physician - When: Tomorrow - Reason: Recheck today's complaints, Continuance of care, Re-evaluation by your physician Discharge Instructions: - Discharge Summary Sheet snw - Abdominal Pain, Adult snw - Colic snw - Pain Without a Known Cause snw Forms: - Medication Reconciliation Form snw - Thank You Letter snw - Antibiotic Education snw - Prescription Opioid Use snw - Patient Portal Instructions snw - Leadership Thank You Letter snw Prescriptions: - simethicone 180 mg Oral capsule - take 1 capsule ORAL route 2 times per day after meals; 45 capsule; Refills: 0, snw Product Selection Permitted - Carafate 1 gram Oral Tablet - take 2 tablets ORAL route every 12 hours take on an empty stomach, beginning on snw waking and last dose at bedtime; 100 tablet; Refills: 0, Product Selection Permitted Signatures: Christy Rojas, COMMERCIAL PAINTER-C COMMERCIAL PAINTER-Csnw Jayy Wooten, RN RN bp Olamide Caicedo, RN RN pf1 Mj Jorgensen RN RN tm6
[2023-05-21 03:45] VITALS: BP 131/85; TEMP 98.5; O2SAT 100
== END ==
LOC: ER 21:30
DX: R10.12 Left upper quadrant pain (principal)
CPT/HCPCS: 99283

== ENCOUNTER 2023-05-27 09:53 | Inpatient (IN) | payer OTHER ==
--- OUTSIDE RECORDS SUMMARY | 2023-05-27 10:13 | XMS REPORT | Continuity of Care Document ---
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 Take 1 tablet by mouth at bedtime. [facility] traZODone 50 mg tablet 2022-0 612 00:00: 00 Yes 50mg Take 1 tablet by mouth at bedtime. [facility] traZODone 50 mg tablet 2022-0 612 00:00: 00 Yes 50mg Take 1 tablet by mouth at bedtime. [facility] traZODone 50 mg tablet 2022-0 12 00:00: 00 Yes 50mg Take 1 tablet by mouth at bedtime. [facility] traZODone 50 mg tablet 2022-0 12 00:00: 00 Yes 50mg Take 1 tablet by mouth at bedtime. [facility] traZODone 50 mg tablet 2022-0 12 00:00: 00 Yes 50mg Take 1 tablet by mouth at bedtime. [facility] hydrOXYzine 50 mg tablet 2022-0 10-02 00:00: 00 Yes 50mg Take 1 tablet by mouth every 6 (six) hours as needed. [facility] hydrOXYzine 50 mg tablet 2022-0 10-02 00:00: 00 Yes 50mg Take 1 tablet by mouth every 6 (six) hours as needed. [facility] hydrOXYzine 50 mg tablet 2022-0 10-02 00:00: 00 Yes 50mg Take 1 tablet by mouth every 6 (six) hours as needed. [facility] hydrOXYzine 50 mg tablet 2022-0 23 00:00: 00 Yes 50mg Take 1 tablet by mouth every 6 (six) hours as needed. [facility] hydrOXYzine 50 mg tablet 2022-0 23 00:00: 00 Yes 50mg Take 1 tablet by mouth every 6 (six) hours as needed. [facility] hydrOXYzine 50 mg tablet 2022-0 23 00:00: 00 Yes 50mg Take 1 tablet by mouth every 6 (six) hours as needed. [facility] mirtazapine 15 mg tablet 2022-0 -12 00:00: 00 Yes 15mg Take 1 tablet by mouth at bedtime. [facility] mirtazapine 15 mg tablet 3-0 5-12 00:00: 00 Yes 15mg Take 1 tablet by mouth at bedtime. [facility] mirtazapine 15 mg tablet 3-0 5-12 00:00: 00 Yes 15mg Take 1 tablet by mouth at bedtime. [facility] mirtazapine 15 mg tablet 3-0 5-12 00:00: 00 Yes 15mg Take 1 tablet by mouth at bedtime. [facility] mirtazapine 15 mg tablet 3-0 5-12 00:00: 00 Yes 15mg Take 1 tablet by mouth at bedtime. [facility] mirtazapine 15 mg tablet 3-0 -12 00:00: 00 Yes 15mg Take 1 tablet by mouth at bedtime. [facility] mirtazapine 15 mg tablet 3-0 -12 00:00: 00 Yes 15mg Take 1 tablet by mouth at bedtime. [facility] mirtazapine 15 mg tablet 3-0 -12 00:00: 00 Yes 15mg Take 1 tablet by mouth at bedtime. [facility] mirtazapine 15 mg tablet 2022-0 -12 00:00: 00 Yes 15mg Take 1 tablet by mouth at bedtime. [facility] meloxicam 15 mg tablet 2022-0 09 00:00: 00 Yes 15mg Take 1 tablet by mouth in the morning. [facility] meloxicam 15 mg tablet 2022-0 09 00:00: 00 Yes 15mg Take 1 tablet by mouth in the morning. [facility] meloxicam 15 mg tablet 3-0 - 00:00: 00 Yes 15mg Take 1 tablet by mouth in the morning. [facility] meloxicam 15 mg tablet 3-0 -09 00:00: 00 Yes 15mg Take 1 tablet by mouth in the morning. [facility] meloxicam 15 mg tablet 3-0 -09 00:00: 00 Yes 15mg Take 1 tablet by mouth in the morning. [facility] meloxicam 15 mg tablet 2022-0 - 00:00: 00 Yes 15mg Take 1 tablet by mouth in the morning. [facility] meloxicam 15 mg tablet 2022-0 - 00:00: 00 Yes 15mg Take 1 tablet by mouth in the morning. [facility] meloxicam 15 mg tablet 2022-0 - 00:00: 00 Yes 15mg Take 1 tablet by mouth in the morning. [facility] 20[facility]-0 09-18 00:00: 00 Yes 15mg Take 1 tablet by mouth in the morning. [facility] tablet 2022-0 09-18 00:00: 00 Yes 15mg Take 1 tablet by mouth in the morning. [facility] verapamil SR 120 mg ER tablet 2022-0 09-17 00:00: 00 Yes 120mg Take 1 tablet by mouth in the morning. [facility] verapamil SR 120 mg ER tablet 2022-0 09-17 00:00: 00 Yes 120mg Take 1 tablet by mouth in the morning. [facility] mg ER tablet 2022-0 09-17 00:00: 00 Yes 120mg Take 1 tablet by mouth in the morning. [facility] verapamil SR 120 mg ER tablet 2022-0 09-17 00:00: 00 Yes 120mg Take 1 tablet by mouth in the morning. [facility] verapamil SR 120 mg ER tablet 2022-0 09-17 00:00: 00 Yes 120mg Take 1 tablet by mouth in the morning. [facility] 120 mg ER tablet 2022-0 09-17 00:00: 00 Yes 120mg Take 1 tablet by mouth in the morning. [facility] 120 mg ER tablet 2022-0 09-17 00:00: 00 Yes 120mg Take 1 tablet by mouth in the morning. [facility] 120 mg ER tablet 3-0 -08 00:00: 00 Yes 120mg Take 1 tablet by mouth in the morning. [facility] 120 mg ER tablet 2022-0 -08 00:00: 00 Yes 120mg Take 1 tablet by mouth in the morning. [facility] verapamil SR 120 mg ER tablet 2022-0 5-08 00:00: 00 Yes 120mg Take 1 tablet by mouth in the morning. [facility] OLANZapine 10 mg tablet 2022-0 27 00:00: 00 Yes 10mg Take 1 tablet by mouth in the morning. [facility] cloNIDine 0.1 mg tablet 2022-0 27 00:00: 00 Yes TAKE 1-2 TABLETS BY MOUTH AT BEDTIME NEEDED FOR SLEEP AND ANXIETY [facility] OLANZapine 10 mg tablet 2022-0 27 00:00: 00 Yes 10mg Take 1 tablet by mouth in the morning. [facility] cloNIDine 0.1 mg tablet 2022-0 27 00:00: 00 Yes TAKE 1-2 TABLETS BY MOUTH AT BEDTIME NEEDED FOR SLEEP AND ANXIETY [facility] OLANZapine 10 mg tablet 3-0 27 00:00: 00 Yes 10mg Take 1 tablet by mouth in the morning. [facility] cloNIDine 0.1 mg tablet 2022-0 27 00:00: 00 Yes TAKE 1-2 TABLETS BY MOUTH AT BEDTIME NEEDED FOR SLEEP AND ANXIETY [facility] OLANZapine 10 mg tablet 3-0 27 00:00: 00 Yes 10mg Take 1 tablet by mouth in the morning. [facility] cloNIDine 0.1 mg tablet 3-0 27 00:00: 00 Yes TAKE 1-2 TABLETS BY MOUTH AT BEDTIME NEEDED FOR SLEEP AND ANXIETY [facility] OLANZapine 10 mg tablet 3-0 27 00:00: 00 Yes 10mg Take 1 tablet by mouth in the morning. [facility] cloNIDine 0.1 mg tablet 3-0 27 00:00: 00 Yes TAKE 1-2 TABLETS BY MOUTH AT BEDTIME NEEDED FOR SLEEP AND ANXIETY [facility] OLANZapine 10 mg tablet 3-0 27 00:00: 00 Yes 10mg Take 1 tablet by mouth in the morning. [facility] cloNIDine 0.1 mg tablet 3-0 27 00:00: 00 Yes TAKE 1-2 TABLETS BY MOUTH AT BEDTIME NEEDED FOR SLEEP AND ANXIETY [facility] OLANZapine 10 mg tablet 0 09-06 00:00: 00 Yes 10mg Take 1 tablet by mouth in the morning. [facility] cloNIDine 0.1 mg tablet 09-06 00:00: 00 Yes TAKE 1-2 TABLETS BY MOUTH AT BEDTIME NEEDED FOR SLEEP AND ANXIETY [facility] OLANZapine 10 mg tablet 0 09-06 00:00: 00 Yes 10mg Take 1 tablet by mouth in the morning. [facility] cloNIDine 0.1 mg tablet 09-06 00:00: 00 Yes TAKE 1-2 TABLETS BY MOUTH AT BEDTIME NEEDED FOR SLEEP AND ANXIETY [facility] OLANZapine 10 mg tablet 09-06 00:00: 00 Yes 10mg Take 1 tablet by mouth in the morning. [facility] cloNIDine 0.1 mg tablet 09-06 00:00: 00 Yes TAKE 1-2 TABLETS BY MOUTH AT BEDTIME NEEDED FOR SLEEP AND ANXIETY [facility] OLANZapine 10 mg tablet 09-06 00:00: 00 Yes 10mg Take 1 tablet by mouth in the morning. [facility] cloNIDine 0.1 mg tablet 09-06 00:00: 00 Yes TAKE 1-2 TABLETS BY MOUTH AT BEDTIME NEEDED FOR SLEEP AND ANXIETY [facility] NaCl 0.9% (NS) bolus infusion 1,000 mL 09-05 18:15: 00 09-05 18:08 :00 No 1000mL at 999 mL/hr, 1,000 mL, IV Infusion, ONCE, 1 dose, On Sat09/05/22 at 1315, STAT [facility] acetaminoph en (TYLENOL) tablet 650 mg 09-05 17:30: 00 09-05 17:24 :00 No 650mg 650 mg, Oral, ONCE, 1 dose, On Sat09/05/22 at 1230, [facility] ondansetron (ZOFRAN (PF)) injection 4 mg 09-05 17:15: 00 09-05 17:23 :00 No 4mg 4 mg, Slow IV Push, ONCE, 1 dose, On Sat09/05/22 at 1215, [facility] magnesium sulfate in water 2 gram/50 mL (4 %) infusion 2 g 09-05 16:15: 00 09-05 16:10 :00 No 2g 2 g, IV Piggyback, Administer over 30 Minutes, ONCE, 1 dose, On Sat09/05/22 at 1115, Routine [facility] diphenhydrA MINE (BENADRYL) injection 25 mg 09-05 16:00: 00 09-05 16:01 :00 No 25mg 25 mg, Slow IV Push, ONCE, 1 dose, On Sat09/05/22 at 1100, STAT [facility] ketorolac (TORADOL) injection 30 mg 09-05 15:30: 00 09-05 14:38 :00 No 30mg 30 mg, Slow IV Push, ONCE, 1 dose, On Sat09/05/22 at 1030, Routine [facility] NaCl 0.9% (NS) bolus infusion 1,000 mL 09-05 15:00: 00 09-05 17:12 :00 No 1000mL at 999 mL/hr, 1,000 mL, IV Infusion, ONCE, 1 dose, On Sat09/05/22 at 1000, STAT [facility] methylpredn isolone sod succ (SOLU-MEDRO L) injection 125 mg 09-05 14:45: 00 09-05 14:35 :00 No 125mg 125 mg, Intravenou s, ONCE, 1 dose, On Sat09/05/22 at 0945, 2 mL [facility] butalbital- acetaminoph en-caff (ESGIC) 50-325-40 mg tablet 1 tablet 09-05 14:00: 00 09-05 14:34 :00 No 1{tbl} 1 tablet, Oral, ONCE, 1 dose, On Sat09/05/22 at 0900, [place] diphenhydrA MINE (BENADRYL) injection 25 mg 09-05 14:00: 00 09-05 14:39 :00 No 25mg 25 mg, Slow IV Push, ONCE, 1 dose, On Sat09/05/22 at 0900, STAT [facility] proMETHazin e (PHENERGAN) 12.5 mg in NaCl 0.9% (NS) 50 mL IV piggyback 09-05 14:00: 00 09-05 14:40 :00 No 12.5mg 12.5 mg, IV Piggyback, ONCE, 1 dose, On Sat09/05/22 at 0900, [facility] carvediloL 25 mg tablet 09-05 00:00: 00 Yes [id number] 25mg Take 1 tablet by mouth in the morning and 1 tablet in the evening. Take with meals. [facility] losartan 50 mg tablet 09-05 00:00: 00 Yes [id number] 50mg Take 1 tablet by mouth in the morning and 1 tablet in the evening. [facility] carvediloL 25 mg tablet 09-05 00:00: 00 Yes [id number] 25mg Take 1 tablet by mouth in the morning and 1 tablet in the evening. Take with meals. [facility] losartan 50 mg tablet 09-05 00:00: 00 Yes [id number] 50mg Take 1 tablet by mouth in the morning and 1 tablet in the evening. [facility] carvediloL 25 mg tablet 09-05 00:00: 00 Yes [id number] 25mg Take 1 tablet by mouth in the morning and 1 tablet in the evening. Take with meals. [facility] losartan 50 mg tablet 09-05 00:00: 00 Yes [id number] 50mg Take 1 tablet by mouth in the morning and 1 tablet in the evening. [facility] carvediloL 25 mg tablet 2022-0 09-05 00:00: 00 Yes [id number] 25mg Take 1 tablet by mouth in the morning and 1 tablet in the evening. Take with meals. [facility] losartan 50 mg tablet 0 09-05 00:00: 00 Yes [id number] 50mg Take 1 tablet by mouth in the morning and 1 tablet in the evening. [facility] carvediloL 25 mg tablet 3-0 09-05 00:00: 00 Yes [id number] 25mg Take 1 tablet by mouth in the morning and 1 tablet in the evening. Take with meals. [facility] losartan 50 mg tablet 3-0 09-05 00:00: 00 Yes [id number] 50mg Take 1 tablet by mouth in the morning and 1 tablet in the evening. [facility] carvediloL 25 mg tablet 3-0 09-05 00:00: 00 Yes [id number] 25mg Take 1 tablet by mouth in the morning and 1 tablet in the evening. Take with meals. [facility] losartan 50 mg tablet 3-0 09-05 00:00: 00 Yes [id number] 50mg Take 1 tablet by mouth in the morning and 1 tablet in the evening. [facility] carvediloL 25 mg tablet 3-0 09-05 00:00: 00 Yes [id number] 25mg Take 1 tablet by mouth in the morning and 1 tablet in the evening. Take with meals. [facility] losartan 50 mg tablet 3-0 09-05 00:00: 00 Yes [id number] 50mg Take 1 tablet by mouth in the morning and 1 tablet in the evening. [facility] carvediloL 25 mg tablet 3-0 09-05 00:00: 00 Yes [id number] 25mg Take 1 tablet by mouth in the morning and 1 tablet in the evening. Take with meals. [facility] losartan 50 mg tablet 3-0 09-05 00:00: 00 Yes [id number] 50mg Take 1 tablet by mouth in the morning and 1 tablet in the evening. [facility] carvediloL 25 mg tablet 3-0 26 00:00: 00 Yes [id number] 25mg Take 1 tablet by mouth in the morning and 1 tablet in the evening. Take with meals. [facility] losartan 50 mg tablet 3-0 26 00:00: 00 Yes [id number] 50mg Take 1 tablet by mouth in the morning and 1 tablet in the evening. [facility] carvediloL 25 mg tablet 3-0 26 00:00: 00 Yes [id number] 25mg Take 1 tablet by mouth in the morning and 1 tablet in the evening. Take with meals. [facility] losartan 50 mg tablet 3-0 26 00:00: 00 Yes [id number] 50mg Take 1 tablet by mouth in the morning and 1 tablet in the evening. [facility] carvediloL 25 mg tablet 3-0 26 00:00: 00 Yes [id number] 25mg Take 1 tablet by mouth in the morning and 1 tablet in the evening. Take with meals. [facility] losartan 50 mg tablet 3-0 26 00:00: 00 Yes [id number] 50mg Take 1 tablet by mouth in the morning and 1 tablet in the evening. [facility] carvediloL 25 mg tablet 3-0 26 00:00: 00 Yes [id number] 25mg Take 1 tablet by mouth in the morning and 1 tablet in the evening. Take with meals. [facility] losartan 50 mg tablet 3-0 26 00:00: 00 Yes [id number] 50mg Take 1 tablet by mouth in the morning and 1 tablet in the evening. [facility] carvediloL 25 mg tablet 3-0 26 00:00: 00 Yes [id number] 25mg Take 1 tablet by mouth in the morning and 1 tablet in the evening. Take with meals. [facility] losartan 50 mg tablet 3-0 26 00:00: 00 Yes [id number] 50mg Take 1 tablet by mouth in the morning and 1 tablet in the evening. [facility] carvediloL 25 mg tablet 3-0 26 00:00: 00 Yes [id number] 25mg Take 1 tablet by mouth in the morning and 1 tablet in the evening. Take with meals. [facility] losartan 50 mg tablet 3-0 -26 00:00: 00 Yes [id number] 50mg Take 1 tablet by mouth in the morning and 1 tablet in the evening. [facility] carvediloL 25 mg tablet 3-0 4-26 00:00: 00 Yes [id number] 25mg Take 1 tablet by mouth in the morning and 1 tablet in the evening. Take with meals. [facility] losartan 50 mg tablet 3-0 4-26 00:00: 00 Yes [id number] 50mg Take 1 tablet by mouth in the morning and 1 tablet in the evening. [facility] ibuprofen 800 mg tablet 3-0 3-26 00:00: 00 Yes 800mg Take 1 tablet by mouth 3 (three) times daily as needed. [facility] cyclobenzap rine 10 mg tablet 3-0 3-26 00:00: 00 Yes 10mg Take 1 tablet by mouth 3 (three) times daily as needed. [facility] ibuprofen 800 mg tablet 3-0 3-26 00:00: 00 Yes 800mg Take 1 tablet by mouth 3 (three) times daily as needed. [facility] cyclobenzap rine 10 mg tablet 3-0 3-26 00:00: 00 Yes 10mg Take 1 tablet by mouth 3 (three) times daily as needed. [facility] ibuprofen 800 mg tablet 3-0 326 00:00: 00 Yes 800mg Take 1 tablet by mouth 3 (three) times daily as needed. [facility] cyclobenzap rine 10 mg tablet 3-0 326 00:00: 00 Yes 10mg Take 1 tablet by mouth 3 (three) times daily as needed. [facility] ibuprofen 800 mg tablet 3-0 3-26 00:00: 00 Yes 800mg Take 1 tablet by mouth 3 (three) times daily as needed. [facility] cyclobenzap rine 10 mg tablet 3-0 3-26 00:00: 00 Yes 10mg Take 1 tablet by mouth 3 (three) times daily as needed. [facility] ibuprofen 800 mg tablet 3-0 3-26 00:00: 00 Yes 800mg Take 1 tablet by mouth 3 (three) times daily as needed. [facility] cyclobenzap rine 10 mg tablet 3-0 3-26 00:00: 00 Yes 10mg Take 1 tablet by mouth 3 (three) times daily as needed. [facility] ibuprofen 800 mg tablet 2023-0 326 00:00: 00 Yes 800mg Take 1 tablet by mouth 3 (three) times daily as needed. [facility] cyclobenzap rine 10 mg tablet 2023-0 3-26 00:00: 00 Yes 10mg Take 1 tablet by mouth 3 (three) times daily as needed. [facility] ibuprofen 800 mg tablet 2023-0 3-26 00:00: 00 Yes 800mg Take 1 tablet by mouth 3 (three) times daily as needed. [facility] cyclobenzap rine 10 mg tablet 2023-0 26 00:00: 00 Yes 10mg Take 1 tablet by mouth 3 (three) times daily as needed. [facility] ibuprofen 800 mg tablet 3-0 26 00:00: 00 Yes 800mg Take 1 tablet by mouth 3 (three) times daily as needed. [facility] cyclobenzap rine 10 mg tablet 3-0 26 00:00: 00 Yes 10mg Take 1 tablet by mouth 3 (three) times daily as needed. [facility] ibuprofen 800 mg tablet 3-0 26 00:00: 00 Yes 800mg Take 1 tablet by mouth 3 (three) times daily as needed. [facility] cyclobenzap rine 10 mg tablet 3-0 26 00:00: 00 Yes 10mg Take 1 tablet by mouth 3 (three) times daily as needed. [facility] ibuprofen 800 mg tablet 3-0 326 00:00: 00 Yes 800mg Take 1 tablet by mouth 3 (three) times daily as needed. [facility] cyclobenzap rine 10 mg tablet 3-0 326 00:00: 00 Yes 10mg Take 1 tablet by mouth 3 (three) times daily as needed. [facility] ibuprofen 800 mg tablet 2023-0 3-26 00:00: 00 Yes 800mg Take 1 tablet by mouth 3 (three) times daily as needed. [facility] cyclobenzap rine 10 mg tablet 2023-0 3-26 00:00: 00 Yes 10mg Take 1 tablet by mouth 3 (three) times daily as needed. [facility] ibuprofen 800 mg tablet 3-0 26 00:00: 00 Yes 800mg Take 1 tablet by mouth 3 (three) times daily as needed. [facility] cyclobenzap rine 10 mg tablet 3-0 08-05 00:00: 00 Yes 10mg Take 1 tablet by mouth 3 (three) times daily as needed. [facility] ibuprofen 800 mg tablet 3-0 26 00:00: 00 Yes 800mg Take 1 tablet by mouth 3 (three) times daily as needed. [facility] cyclobenzap rine 10 mg tablet 3-0 26 00:00: 00 Yes 10mg Take 1 tablet by mouth 3 (three) times daily as needed. [facility] ibuprofen 800 mg tablet 3-0 08-05 00:00: 00 Yes 800mg Take 1 tablet by mouth 3 (three) times daily as needed. [facility] cyclobenzap rine 10 mg tablet 3-0 08-05 00:00: 00 Yes 10mg Take 1 tablet by mouth 3 (three) times daily as needed. [facility] ibuprofen 800 mg tablet 3-0 26 00:00: 00 Yes 800mg Take 1 tablet by mouth 3 (three) times daily as needed. [facility] cyclobenzap rine 10 mg tablet 2022-0 08-05 00:00: 00 Yes 10mg Take 1 tablet by mouth 3 (three) times daily as needed. [facility] ibuprofen 800 mg tablet 3-0 26 00:00: 00 Yes 800mg Take 1 tablet by mouth 3 (three) times daily as needed. [facility] cyclobenzap rine 10 mg tablet 3-0 26 00:00: 00 Yes 10mg Take 1 tablet by mouth 3 (three) times daily as needed. [facility] ibuprofen 800 mg tablet 3-0 26 00:00: 00 Yes 800mg Take 1 tablet by mouth 3 (three) times daily as needed. [facility] cyclobenzap rine 10 mg tablet 3-0 326 00:00: 00 Yes 10mg Take 1 tablet by mouth 3 (three) times daily as needed. [facility] ibuprofen 800 mg tablet 08-05 00:00: 00 Yes 800mg Take 1 tablet by mouth 3 (three) times daily as needed. [facility] cyclobenzap rine 10 mg tablet 08-05 00:00: 00 Yes 10mg Take 1 tablet by mouth 3 (three) times daily as needed. [facility] maalox:diph enhydrAMINE :lidocaine 2 % viscous 1:1:1 ([facility]) oral suspension 15 mL 08-01 00:45: 00 08-01 00:44 :00 No 15mL 15 mL, Oral, ONCE, 1 dose, On Sat07/31/22 at 194, [place] [facility] ketorolac (TORADOL) injection 15 mg 08-01 00:15: 00 08-01 00:44 :00 No 15mg 15 mg, Slow IV Push, ONCE, 1 dose, On Sat07/31/22 at 1914, Routine [facility] ondansetron (ZOFRAN (PF)) injection 4 mg 08-01 00:15: 00 08-01 00:46 :00 No 4mg 4 mg, Slow IV Push, ONCE, 1 dose, [facility] 20 mg 08-01 00:15: 00 08-01 00:46 :00 No 20mg 20 mg, Slow IV Push, ONCE, 1 dose, [facility] Sat07[facility]31/22 [facility] 1914[facility] on[facility] 4 mg disintegrat ing tablet 07-31 00:00: 00 Yes [id number] 4mg Take 1 tablet by mouth every 8 (eight) hours as needed for Nausea and Vomiting (N/V). [facility] sucralfate 1 gram tablet 07-31 00:00: 00 Yes [id number] 1g Take 1 tablet by mouth before meals and at bedtime. [facility] ondansetron 4 mg disintegrat ing tablet 3-0 3-21 00:00: 00 Yes [id number] 4mg Take 1 tablet by mouth every 8 (eight) hours as needed for Nausea and Vomiting (N/V). [facility] sucralfate 1 gram tablet 3-0 3-21 00:00: 00 Yes [id number] 1g Take 1 tablet by mouth before meals and at bedtime. [facility] ondansetron 4 mg disintegrat ing tablet 3-0 3-21 00:00: 00 Yes [id number] 4mg Take 1 tablet by mouth every 8 (eight) hours as needed for Nausea and Vomiting (N/V). [facility] sucralfate 1 gram tablet 3-0 -21 00:00: 00 Yes [id number] 1g Take 1 tablet by mouth before meals and at bedtime. [facility] ondansetron 4 mg disintegrat ing tablet 3-0 - 00:00: 00 Yes [id number] 4mg Take 1 tablet by mouth every 8 (eight) hours as needed for Nausea and Vomiting (N/V). [facility] sucralfate 1 gram tablet 3-0 321 00:00: 00 Yes [id number] 1g Take 1 tablet by mouth before meals and at bedtime. [facility] ondansetron 4 mg disintegrat ing tablet 3-0 -21 00:00: 00 Yes [id number] 4mg Take 1 tablet by mouth every 8 (eight) hours as needed for Nausea and Vomiting (N/V). [facility] sucralfate 1 gram tablet 3-0 3-21 00:00: 00 Yes [id number] 1g Take 1 tablet by mouth before meals and at bedtime. [facility] ondansetron 4 mg disintegrat ing tablet 3-0 3-21 00:00: 00 Yes [id number] 4mg Take 1 tablet by mouth every 8 (eight) hours as needed for Nausea and Vomiting (N/V). [facility] sucralfate 1 gram tablet 3-0 3-21 00:00: 00 Yes [id number] 1g Take 1 tablet by mouth before meals and at bedtime. [facility] ondansetron 4 mg disintegrat ing tablet 3-0 3-21 00:00: 00 Yes [id number] 4mg Take 1 tablet by mouth every 8 (eight) hours as needed for Nausea and Vomiting (N/V). [facility] sucralfate 1 gram tablet 3-0 3-21 00:00: 00 Yes [id number] 1g Take 1 tablet by mouth before meals and at bedtime. [facility] ondansetron 4 mg disintegrat ing tablet 3-0 3-21 00:00: 00 Yes [id number] 4mg Take 1 tablet by mouth every 8 (eight) hours as needed for Nausea and Vomiting (N/V). [facility] sucralfate 1 gram tablet 2022-0 3-21 00:00: 00 Yes [id number] 1g Take 1 tablet by mouth before meals and at bedtime. [facility] ondansetron 4 mg disintegrat ing tablet 2022-0 3-21 00:00: 00 Yes [id number] 4mg Take 1 tablet by mouth every 8 (eight) hours as needed for Nausea and Vomiting (N/V). [facility] sucralfate 1 gram tablet 3-0 3-21 00:00: 00 Yes [id number] 1g Take 1 tablet by mouth before meals and at bedtime. [facility] ondansetron 4 mg disintegrat ing tablet 3-0 3-21 00:00: 00 Yes [id number] 4mg Take 1 tablet by mouth every 8 (eight) hours as needed for Nausea and Vomiting (N/V). [facility] sucralfate 1 gram tablet 3-0 3-21 00:00: 00 Yes [id number] 1g Take 1 tablet by mouth before meals and at bedtime. [facility] ondansetron 4 mg disintegrat ing tablet 3-0 3-21 00:00: 00 Yes [id number] 4mg Take 1 tablet by mouth every 8 (eight) hours as needed for Nausea and Vomiting (N/V). [facility] sucralfate 1 gram tablet 3-0 3-21 00:00: 00 Yes [id number] 1g Take 1 tablet by mouth before meals and at bedtime. [facility] ondansetron 4 mg disintegrat ing tablet 2022-0 3-21 00:00: 00 Yes [id number] 4mg Take 1 tablet by mouth every 8 (eight) hours as needed for Nausea and Vomiting (N/V). [facility] sucralfate 1 gram tablet 2022-0 3-21 00:00: 00 Yes [id number] 1g Take 1 tablet by mouth before meals and at bedtime. [facility] ondansetron 4 mg disintegrat ing tablet 2022-0 3-21 00:00: 00 Yes [id number] 4mg Take 1 tablet by mouth every 8 (eight) hours as needed for Nausea and Vomiting (N/V). [facility] sucralfate 1 gram tablet 2022-0 3- 00:00: 00 Yes [id number] 1g Take 1 tablet by mouth before meals and at bedtime. [facility] ondansetron 4 mg disintegrat ing tablet 2022-0 - 00:00: 00 Yes [id number] 4mg Take 1 tablet by mouth every 8 (eight) hours as needed for Nausea and Vomiting (N/V). [facility] sucralfate 1 gram tablet 2022-0 3-21 00:00: 00 Yes [id number] 1g Take 1 tablet by mouth before meals and at bedtime. [facility] ondansetron 4 mg disintegrat ing tablet 2022-0 3-21 00:00: 00 Yes [id number] 4mg Take 1 tablet by mouth every 8 (eight) hours as needed for Nausea and Vomiting (N/V). [facility] sucralfate 1 gram tablet 3-0 3-21 00:00: 00 Yes [id number] 1g Take 1 tablet by mouth before meals and at bedtime. [facility] ondansetron 4 mg disintegrat ing tablet 3-0 3-21 00:00: 00 Yes [id number] 4mg Take 1 tablet by mouth every 8 (eight) hours as needed for Nausea and Vomiting (N/V). [facility] sucralfate 1 gram tablet 0 07-31 00:00: 00 Yes [id number] 1g Take 1 tablet by mouth before meals and at bedtime. [facility] ondansetron 4 mg disintegrat ing tablet 0 07-31 00:00: 00 Yes [id number] 4mg Take 1 tablet by mouth every 8 (eight) hours as needed for Nausea and Vomiting (N/V). [facility] sucralfate 1 gram tablet 0 07-31 00:00: 00 Yes [id number] 1g Take 1 tablet by mouth before meals and at bedtime. [facility] ondansetron 4 mg disintegrat ing tablet 0 07-31 00:00: 00 Yes [id number] 4mg Take 1 tablet by mouth every 8 (eight) hours as needed for Nausea and Vomiting (N/V). [facility] sucralfate 1 gram tablet 0 07-31 00:00: 00 Yes [id number] 1g Take 1 tablet by mouth before meals and at bedtime. [facility] ondansetron 4 mg disintegrat ing tablet 07-31 00:00: 00 Yes [id number] 4mg Take 1 tablet by mouth every 8 (eight) hours as needed for Nausea and Vomiting (N/V). [facility] sucralfate 1 gram tablet 07-31 00:00: 00 Yes [id number] 1g Take 1 tablet by mouth before meals and at bedtime. [facility] ondansetron 4 mg disintegrat ing tablet 07-31 00:00: 00 05-19 00:00 :00 No [id number] 4mg Take 1 tablet by mouth every 8 (eight) hours as needed for Nausea and Vomiting (N/V). [facility] sucralfate 1 gram tablet 07-31 00:00: 00 05-19 00:00 :00 No [id number] 1g Take 1 tablet by mouth before meals and at bedtime. [facility] pantoprazol e 40 mg EC tablet 07-31 00:00: 00 08-15:59 :00 No [id number] 40mg Take 1 tablet by mouth in the morning for 14 days. [facility] pantoprazol e 40 mg EC tablet 2022-0 3-21 00:00: 00 08-15 04:59 :00 No [id number] 40mg Take 1 tablet by mouth in the morning for 14 days. [facility] tamsulosin 0.4 mg 24 hr capsule 3-0 3-15 00:00: 00 Yes .4mg Take 1 capsule by mouth in the morning. [facility] tamsulosin 0.4 mg 24 hr capsule 3-0 3-15 00:00: 00 Yes .4mg Take 1 capsule by mouth in the morning. [facility] tamsulosin 0.4 mg 24 hr capsule 3-0 3-15 00:00: 00 Yes .4mg Take 1 capsule by mouth in the morning. [facility] tamsulosin 0.4 mg 24 hr capsule 3-0 3-15 00:00: 00 Yes .4mg Take 1 capsule by mouth in the morning. [facility] tamsulosin 0.4 mg 24 hr capsule 3-0 3-15 00:00: 00 Yes .4mg Take 1 capsule by mouth in the morning. [facility] tamsulosin 0.4 mg 24 hr capsule 3-0 3-15 00:00: 00 Yes .4mg Take 1 capsule by mouth in the morning. [facility] tamsulosin 0.4 mg 24 hr capsule 3-0 3-15 00:00: 00 Yes .4mg Take 1 capsule by mouth in the morning. [facility] tamsulosin 0.4 mg 24 hr capsule 3-0 3-15 00:00: 00 Yes .4mg Take 1 capsule by mouth in the morning. [facility] tamsulosin 0.4 mg 24 hr capsule 3-0 3-15 00:00: 00 Yes .4mg Take 1 capsule by mouth in the morning. [facility] tamsulosin 0.4 mg 24 hr capsule 3-0 3-15 00:00: 00 Yes .4mg Take 1 capsule by mouth in the morning. [facility] 24 hr capsule 2023-0 3-15 00:00: 00 Yes .4mg Take 1 capsule by mouth in the morning. [facility] 0.4 mg 24 hr capsule 2023-0 3-15 00:00: 00 Yes .4mg Take 1 capsule by mouth in the morning. [facility] 0.4 mg 24 hr capsule 2023-0 3-15 00:00: 00 Yes .4mg Take 1 capsule by mouth in the morning. [facility] 0.4 mg 24 hr capsule 2023-0 3-15 00:00: 00 Yes .4mg Take 1 capsule by mouth in the morning. [facility] tamsulosin 0.4 mg 24 hr capsule 2023-0 3-15 00:00: 00 Yes .4mg Take 1 capsule by mouth in the morning. [facility] tamsulosin 0.4 mg 24 hr capsule 2023-0 3-15 00:00: 00 Yes .4mg Take 1 capsule by mouth in the morning. [facility] tamsulosin 0.4 mg 24 hr capsule 2023-0 3-15 00:00: 00 Yes .4mg Take 1 capsule by mouth in the morning. [facility] tamsulosin 0.4 mg 24 hr capsule 2023-0 3-15 00:00: 00 Yes .4mg Take 1 capsule by mouth in the morning. [facility] traMADoL 50 mg tablet 3-0 3-13 00:00: 00 Yes 50mg Take 1 tablet by mouth. [facility] traMADoL 50 mg tablet 3-0 3-13 00:00: 00 Yes 50mg Take 1 tablet by mouth. [facility] traMADoL 50 mg tablet 3-0 3-13 00:00: 00 Yes 50mg Take 1 tablet by mouth. [facility] traMADoL 50 mg tablet 3-0 3-13 00:00: 00 Yes 50mg Take 1 tablet by mouth. [facility] traMADoL 50 mg tablet 3-0 3-13 00:00: 00 Yes 50mg Take 1 tablet by mouth. [facility] traMADoL 50 mg tablet 2022-0 313 00:00: 00 Yes 50mg Take 1 tablet by mouth. [facility] mg tablet 0 13 00:00: 00 Yes 50mg Take 1 tablet by mouth. [facility] tra[facility] mg tablet 2022-0 313 00:00: 00 Yes 50mg Take 1 tablet by mouth. [facility] traMADoL 50 mg tablet 2022-0 313 00:00: 00 Yes 50mg Take 1 tablet by mouth. [facility] traMADoL 50 mg tablet 2022-0 13 00:00: 00 Yes 50mg Take 1 tablet by mouth. [facility] traMADoL 50 mg tablet 0 07-23 00:00: 00 Yes 50mg Take 1 tablet by mouth. [facility] traMADoL 50 mg tablet 0 13 00:00: 00 Yes 50mg Take 1 tablet by mouth. [facility] traMADoL 50 mg tablet 2022-0 13 00:00: 00 Yes 50mg Take 1 tablet by mouth. [facility] traMADoL 50 mg tablet 0 13 00:00: 00 Yes 50mg Take 1 tablet by mouth. [facility] traMADoL 50 mg tablet 0 13 00:00: 00 Yes 50mg Take 1 tablet by mouth. [facility] traMADoL 50 mg tablet 0 313 00:00: 00 Yes 50mg Take 1 tablet by mouth. [facility] traMADoL 50 mg tablet 2022-0 13 00:00: 00 Yes 50mg Take 1 tablet by mouth. [facility] traMADoL 50 mg tablet 2022-0 13 00:00: 00 Yes 50mg Take 1 tablet by mouth. [facility] ibuprofen 600 mg tablet 2022-0 305 00:00: 00 Yes [id number] 600mg Take 1 tablet by mouth every 6 (six) hours as needed for Pain (scale 4-6). [facility] ibuprofen 600 mg tablet 2023-0 3-05 00:00: 00 Yes [id number] 600mg Take 1 tablet by mouth every 6 (six) hours as needed for Pain (scale 4-6). [facility] ibuprofen 600 mg tablet 2022-0 3-05 00:00: 00 Yes [id number] 600mg Take 1 tablet by mouth every 6 (six) hours as needed for Pain (scale 4-6). [facility] ibuprofen 600 mg tablet 2022-0 3-05 00:00: 00 07-31 00:00 :00 No [id number] 600mg Take 1 tablet by mouth every 6 (six) hours as needed for Pain (scale 4-6). [facility] citalopram 10 mg tablet 2022-0 2-17 00:00: 00 Yes 10mg Take 1 tablet by mouth in the morning. [facility] QUEtiapine 400 mg tablet 2022-0 2-17 00:00: 00 Yes [facility] gabapentin 600 mg tablet 2022-0 2-17 00:00: 00 Yes [facility] citalopram 10 mg tablet 3-0 2-17 00:00: 00 Yes 10mg Take 1 tablet by mouth in the morning. [facility] QUEtiapine 400 mg tablet 2022-0 2-17 00:00: 00 Yes [facility] gabapentin 600 mg tablet 2022-0 2-17 00:00: 00 Yes [facility] citalopram 10 mg tablet 3-0 2-17 00:00: 00 Yes 10mg Take 1 tablet by mouth in the morning. [facility] QUEtiapine 400 mg tablet 3-0 2-17 00:00: 00 Yes [facility] gabapentin 600 mg tablet 3-0 2-17 00:00: 00 Yes [facility] citalopram 10 mg tablet 3-0 2-17 00:00: 00 Yes 10mg Take 1 tablet by mouth in the morning. [facility] QUEtiapine 400 mg tablet 3-0 2-17 00:00: 00 Yes [facility] gabapentin 600 mg tablet 2023-0 2-17 00:00: 00 Yes [facility] citalopram 10 mg tablet 3-0 2-17 00:00: 00 Yes 10mg Take 1 tablet by mouth in the morning. [facility] QUEtiapine 400 mg tablet 3-0 2-17 00:00: 00 Yes [facility] gabapentin 600 mg tablet 3-0 2-17 00:00: 00 Yes [facility] citalopram 10 mg tablet 3-0 2-17 00:00: 00 Yes 10mg Take 1 tablet by mouth in the morning. [facility] QUEtiapine 400 mg tablet 3-0 2-17 00:00: 00 Yes [facility] gabapentin 600 mg tablet 3-0 2-17 00:00: 00 Yes [facility] citalopram 10 mg tablet 3-0 2-17 00:00: 00 Yes 10mg Take 1 tablet by mouth in the morning. [facility] QUEtiapine 400 mg tablet 3-0 2-17 00:00: 00 Yes [facility] gabapentin 600 mg tablet 3-0 2-17 00:00: 00 Yes [facility] citalopram 10 mg tablet 3-0 2-17 00:00: 00 Yes 10mg Take 1 tablet by mouth in the morning. [facility] QUEtiapine 400 mg tablet 3-0 2-17 00:00: 00 Yes [facility] gabapentin 600 mg tablet 3-0 2-17 00:00: 00 Yes [facility] citalopram 10 mg tablet 3-0 2-17 00:00: 00 Yes 10mg Take 1 tablet by mouth in the morning. [facility] QUEtiapine 400 mg tablet 3-0 2-17 00:00: 00 Yes [facility] gabapentin 600 mg tablet 3-0 2-17 00:00: 00 Yes [facility] citalopram 10 mg tablet 3-0 2-17 00:00: 00 Yes 10mg Take 1 tablet by mouth in the morning. [facility] QUEtiapine 400 mg tablet 2023-0 2-17 00:00: 00 Yes [facility] gabapentin 600 mg tablet 3-0 2-17 00:00: 00 Yes [facility] citalopram 10 mg tablet 3-0 2-17 00:00: 00 Yes 10mg Take 1 tablet by mouth in the morning. [facility] QUEtiapine 400 mg tablet 2023-0 2-17 00:00: 00 Yes [facility] gabapentin 600 mg tablet 3-0 2-17 00:00: 00 Yes [facility] citalopram 10 mg tablet 3-0 2-17 00:00: 00 Yes 10mg Take 1 tablet by mouth in the morning. [facility] QUEtiapine 400 mg tablet 3-0 2-17 00:00: 00 Yes [facility] gabapentin 600 mg tablet 3-0 2-17 00:00: 00 Yes [facility] citalopram 10 mg tablet 3-0 2-17 00:00: 00 Yes 10mg Take 1 tablet by mouth in the morning. [facility] QUEtiapine 400 mg tablet 3-0 2-17 00:00: 00 Yes [facility] gabapentin 600 mg tablet 3-0 2-17 00:00: 00 Yes [facility] citalopram 10 mg tablet 3-0 2-17 00:00: 00 Yes 10mg Take 1 tablet by mouth in the morning. [facility] QUEtiapine 400 mg tablet 2023-0 2-17 00:00: 00 Yes [facility] gabapentin 600 mg tablet 3-0 2-17 00:00: 00 Yes [facility] citalopram 10 mg tablet 3-0 2-17 00:00: 00 Yes 10mg Take 1 tablet by mouth in the morning. [facility] QUEtiapine 400 mg tablet 2023-0 2-17 00:00: 00 Yes [facility] gabapentin 600 mg tablet 2023-0 2-17 00:00: 00 Yes [facility] citalopram 10 mg tablet 2023-0 2-17 00:00: 00 Yes 10mg Take 1 tablet by mouth in the morning. [facility] QUEtiapine 400 mg tablet 2022-0 2-17 00:00: 00 Yes [facility] gabapentin 600 mg tablet 2022-0 2-17 00:00: 00 Yes [facility] citalopram 10 mg tablet 2022-0 2-17 00:00: 00 Yes 10mg Take 1 tablet by mouth in the morning. [facility] QUEtiapine 400 mg tablet 2022-0 2-17 00:00: 00 Yes [facility] gabapentin 600 mg tablet 2022-0 2-17 00:00: 00 Yes [facility] citalopram 10 mg tablet 2022-0 2-17 00:00: 00 Yes 10mg Take 1 tablet by mouth in the morning. [facility] QUEtiapine 400 mg tablet 3-0 2-17 00:00: 00 Yes [facility] gabapentin 600 mg tablet 2022-0 2-17 00:00: 00 Yes [facility] methylPREDN ISolone (MEDROL, ANABELA,) 4 mg tablets 2022-0 2-11 00:00: 00 Yes [id number] Take by mouth SEE-INSTRU CTIONS. follow package directions [facility] methylPREDN ISolone (MEDROL, ANABELA,) 4 mg tablets 3-0 2-11 00:00: 00 Yes [id number] Take by mouth SEE-INSTRU CTIONS. follow package directions [facility] methylPREDN ISolone (MEDROL, ANABELA,) 4 mg tablets 3-0 2-11 00:00: 00 Yes [id number] Take by mouth SEE-INSTRU CTIONS. follow package directions [facility] methylPREDN ISolone (MEDROL, ANABELA,) 4 mg tablets 2022-0 2-11 00:00: 00 Yes [id number] Take by mouth SEE-INSTRU CTIONS. follow package directions [facility] methylPREDN ISolone (MEDROL, ANABELA,) 4 mg tablets 3-0 2-11 00:00: 00 Yes [id number] Take by mouth SEE-INSTRU CTIONS. follow package directions [facility] methylPREDN ISolone (MEDROL, ANABELA,) 4 mg tablets 06-23 00:00: 00 Yes [id number] Take by mouth SEE-INSTRU CTIONS. follow package directions [facility] methylPREDN ISolone (MEDROL, ANABELA,) 4 mg tablets 06-23 00:00: 00 Yes [id number] Take by mouth SEE-INSTRU CTIONS. follow package directions [facility] methylPREDN ISolone (MEDROL, ANABELA,) 4 mg tablets 06-23 00:00: 00 Yes [id number] Take by mouth SEE-INSTRU CTIONS. follow package directions [facility] methylPREDN ISolone (MEDROL, ANABELA,) 4 mg tablets 06-23 00:00: 00 Yes [id number] Take by mouth SEE-INSTRU CTIONS. follow package directions [facility] methylPREDN ISolone (MEDROL, ANABELA,) 4 mg tablets 06-23 00:00: 00 Yes [id number] Take by mouth SEE-INSTRU CTIONS. follow package directions [facility] methylPREDN ISolone (MEDROL, ANABELA,) 4 mg tablets 06-23 00:00: 00 Yes [id number] Take by mouth SEE-INSTRU CTIONS. follow package directions [facility] methylPREDN ISolone (MEDROL, ANABELA,) 4 mg tablets 06-23 00:00: 00 Yes [id number] Take by mouth SEE-INSTRU CTIONS. follow package directions [facility] methylPREDN ISolone (MEDROL, ANABELA,) 4 mg tablets 06-23 00:00: 00 Yes [id number] Take by mouth SEE-INSTRU CTIONS. follow package directions [facility] methylPREDN ISolone (MEDROL, ANABELA,) 4 mg tablets 06-23 00:00: 00 Yes [id number] Take by mouth SEE-INSTRU CTIONS. follow package directions [facility] bromphenira mine-pseudo ephedrine-D M (BROMFED DM) 2-30-10 mg/5 mL syrup 06-23 00:00: 00 07-04 05:59 :00 No [id number] 5mL Take 5 mL by mouth 4 (four) times daily as needed for Cold symptoms for up to 10 days. [facility] methocarbam oL 750 mg tablet 06-23 00:00: 00 07-01 05:59 :00 No [id number] 750mg Take 1 tablet by mouth 4 (four) times daily for 7 days. [facility] magnesium sulfate in water 2 gram/50 mL (4 %) infusion 2 g 2021-05 21:00: 00 05-05 21:15 :00 No 2g 2 g, IV Piggyback, Administer over 15 Minutes, ONCE, 1 dose, On 05/05/22 at 1500, [place] [facility] butalbital- acetaminoph en-caff (ESGIC) 50-325-40 mg tablet 1 tablet 2021-05 20:15: 00 05-05 20:56 :00 No 1{tbl} 1 tablet, Oral, ONCE, 1 dose, On 05/05/22 at 1415, [place] [facility] dexamethaso ne sod phos PF injection 10 mg 2021-05 20:15: 00 05-05 21:00 :00 No 10mg 10 mg, Slow IV Push, ONCE, 1 dose, On 05/05/22 at 1415, 1 mL [facility] NaCl 0.9% (NS) bolus infusion 1,000 mL 2021-05 20:00: 00 05-05 21:45 :00 No 1000mL at 999 mL/hr, 1,000 mL, IV Infusion, ONCE, 1 dose, On 05/05/22 at 1400, [place] [facility] diphenhydrA MINE (BENADRYL) injection 25 mg 2021-05 19:15: 00 05-05 19:42 :00 No 25mg 25 mg, Slow IV Push, ONCE, 1 dose, On 05/05/22 at 1315, STAT [facility] ondansetron (ZOFRAN (PF)) injection 4 mg 2021-05 19:15: 00 05-05 19:45 :00 No 4mg 4 mg, Slow IV Push, ONCE, 1 dose, On 05/05/22 at 1315, [place] [facility] ketorolac (TORADOL) injection 30 mg 2021-05 19:15: 00 05-05 19:44 :00 No 30mg 30 mg, Slow IV Push, ONCE, 1 dose, On 05/05/22 at 1315, Routine [facility] butalbital- acetaminoph en-caff 50-325-40 mg tablet 2021-05 00:00: 00 Yes [id number] 1{tbl} Take 1 tablet by mouth every 4 (four) hours as needed for Pain (scale 7-10). [facility] butalbital- acetaminoph en-caff 50-325-40 mg tablet 2021-05 00:00: 00 Yes [id number] 1{tbl} Take 1 tablet by mouth every 4 (four) hours as needed for Pain (scale 7-10). [facility] butalbital- acetaminoph en-caff 50-325-40 mg tablet 2021-05 00:00: 00 Yes [id number] 1{tbl} Take 1 tablet by mouth every 4 (four) hours as needed for Pain (scale 7-10). [facility] butalbital- acetaminoph en-caff 50-325-40 mg tablet 2021-05 00:00: 00 Yes [id number] 1{tbl} Take 1 tablet by mouth every 4 (four) hours as needed for Pain (scale 7-10). [facility] butalbital- acetaminoph en-caff 50-325-40 mg tablet 2021-05 00:00: 00 Yes [id number] 1{tbl} Take 1 tablet by mouth every 4 (four) hours as needed for Pain (scale 7-10). [facility] butalbital- acetaminoph en-caff 50-325-40 mg tablet 2021-05 00:00: 00 Yes [id number] 1{tbl} Take 1 tablet by mouth every 4 (four) hours as needed for Pain (scale 7-10). [facility] butalbital- acetaminoph en-caff 50-325-40 mg tablet 2021-05 00:00: 00 Yes [id number] 1{tbl} Take 1 tablet by mouth every 4 (four) hours as needed for Pain (scale 7-10). [facility] butalbital- acetaminoph en-caff 50-325-40 mg tablet 2021-05 00:00: 00 Yes [id number] 1{tbl} Take 1 tablet by mouth every 4 (four) hours as needed for Pain (scale 7-10). [facility] butalbital- acetaminoph en-caff 50-325-40 mg tablet 2021-05 00:00: 00 Yes [id number] 1{tbl} Take 1 tablet by mouth every 4 (four) hours as needed for Pain (scale 7-10). [facility] butalbital- acetaminoph en-caff 50-325-40 mg tablet 2021-05 00:00: 00 Yes [id number] 1{tbl} Take 1 tablet by mouth every 4 (four) hours as needed for Pain (scale 7-10). [facility] butalbital- acetaminoph en-caff 50-325-40 mg tablet 2021-05 00:00: 00 Yes [id number] 1{tbl} Take 1 tablet by mouth every 4 (four) hours as needed for Pain (scale 7-10). [facility] butalbital- acetaminoph en-caff 50-325-40 mg tablet 2021-05 00:00: 00 Yes [id number] 1{tbl} Take 1 tablet by mouth every 4 (four) hours as needed for Pain (scale 7-10). [facility] butalbital- acetaminoph en-caff 50-325-40 mg tablet 2021-05 00:00: 00 Yes [id number] 1{tbl} Take 1 tablet by mouth every 4 (four) hours as needed for Pain (scale 7-10). [facility] butalbital- acetaminoph en-caff 50-325-40 mg tablet 2021-05 00:00: 00 Yes [id number] 1{tbl} Take 1 tablet by mouth every 4 (four) hours as needed for Pain (scale 7-10). [facility] butalbital- acetaminoph en-caff 50-325-40 mg tablet 2021-05 00:00: 00 Yes [id number] 1{tbl} Take 1 tablet by mouth every 4 (four) hours as needed for Pain (scale 7-10). [facility] butalbital- acetaminoph en-caff 50-325-40 mg tablet 2021-05 00:00: 00 Yes [id number] 1{tbl} Take 1 tablet by mouth every 4 (four) hours as needed for Pain (scale 7-10). [facility] HYDROcodone -acetaminop hen (NORCO) 10-325 mg tablet 1 tablet 2021-05 16:30: 00 04-26 15:23 :00 No 1{tbl} 1 tablet, Oral, ONCE, 1 dose, On Kathie 04/26/22 at 1030, Routine [facility] diphenhydrA MINE (BENADRYL) tablet 25 mg 2021-05 15:45: 00 04-26 15:53 :00 No 25mg 25 mg, Oral, ONCE, 1 dose, On Sat04/26/22 at 0945, [place] [facility] NaCl 0.9% (NS) bolus infusion 1,000 mL 2021-05 15:45: 00 04-26 15:55 :00 No 1000mL at 999 mL/hr, 1,000 mL, IV Piggyback, ONCE, 1 dose, On Kathie 04/26/22 at 0945, STAT [facility] ondansetron (ZOFRAN (PF)) injection 4 mg 2021-05 14:45: 00 04-26 14:52 :00 No 4mg 4 mg, Slow IV Push, ONCE, 1 dose, On Kathie 04/26/22 at 0845, Routine [facility] cephALEXin (KEFLEX) 500 mg capsule 2021-05 00:00: 00 05-04 05:59 :00 No [id number] 500mg Take 1 capsule by mouth in the morning and 1 capsule at noon and 1 capsule in the evening. Do all this for 7 days. [facility] ondansetron (ZOFRAN) 4 mg tablet 2021-05 00:00: 00 Yes 4mg Take 1 tablet by mouth every 8 (eight) hours as needed for Nausea and Vomiting (N/V). [facility] ondansetron (ZOFRAN) 4 mg tablet 2021-05 00:00: 00 Yes 4mg Take 1 tablet by mouth every 8 (eight) hours as needed for Nausea and Vomiting (N/V). [facility] ondansetron (ZOFRAN) 4 mg tablet 2021-05 00:00: 00 Yes 4mg Take 1 tablet by mouth every 8 (eight) hours as needed for Nausea and Vomiting (N/V). [facility] ondansetron (ZOFRAN) 4 mg tablet 2021-05 00:00: 00 Yes 4mg Take 1 tablet by mouth every 8 (eight) hours as needed for Nausea and Vomiting (N/V). [facility] ondansetron (ZOFRAN) 4 mg tablet 2021-05 00:00: 00 Yes 4mg Take 1 tablet by mouth every 8 (eight) hours as needed for Nausea and Vomiting (N/V). [facility] ondansetron (ZOFRAN) 4 mg tablet 2021-05 00:00: 00 Yes 4mg Take 1 tablet by mouth every 8 (eight) hours as needed for Nausea and Vomiting (N/V). [facility] ondansetron (ZOFRAN) 4 mg tablet 2021-05 00:00: 00 Yes 4mg Take 1 tablet by mouth every 8 (eight) hours as needed for Nausea and Vomiting (N/V). [facility] ondansetron (ZOFRAN) 4 mg tablet 2021-05 00:00: 00 Yes 4mg Take 1 tablet by mouth every 8 (eight) hours as needed for Nausea and Vomiting (N/V). [facility] ondansetron (ZOFRAN) 4 mg tablet 2021-05 00:00: 00 Yes 4mg Take 1 tablet by mouth every 8 (eight) hours as needed for Nausea and Vomiting (N/V). [facility] ondansetron (ZOFRAN) 4 mg tablet 2021-05 00:00: 00 Yes 4mg Take 1 tablet by mouth every 8 (eight) hours as needed for Nausea and Vomiting (N/V). [facility] ondansetron (ZOFRAN) 4 mg tablet 2021-05 00:00: 00 Yes 4mg Take 1 tablet by mouth every 8 (eight) hours as needed for Nausea and Vomiting (N/V). [facility] ondansetron (ZOFRAN) 4 mg tablet 2021-05 00:00: 00 Yes 4mg Take 1 tablet by mouth every 8 (eight) hours as needed for Nausea and Vomiting (N/V). [facility] ondansetron (ZOFRAN) 4 mg tablet 2021-05 00:00: 00 07-31 00:00 :00 No 4mg Take 1 tablet by mouth every 8 (eight) hours as needed for Nausea and Vomiting (N/V). [facility] galcanezuma b-gnlm prefilled (EMGALITY) subcutaneou s injection 2021-05 00:00: 00 Yes [id number] 120mg inject 120 mg under the skin once every month. [facility] galcanezuma b-gnlm prefilled (EMGALITY) subcutaneou s injection 2021-05 00:00: 00 Yes [id number] 120mg inject 120 mg under the skin once every month. [facility] galcanezuma b-gnlm prefilled (EMGALITY) subcutaneou s injection 2021-05 00:00: 00 Yes [id number] 120mg inject 120 mg under the skin once every month. [facility] galcanezuma b-gnlm prefilled (EMGALITY) subcutaneou s injection 2021-05 00:00: 00 Yes [id number] 120mg inject 120 mg under the skin once every month. [facility] galcanezuma b-gnlm prefilled (EMGALITY) subcutaneou s injection 2021-05 00:00: 00 Yes [id number] 120mg inject 120 mg under the skin once every month. [facility] galcanezuma b-gnlm prefilled (EMGALITY) subcutaneou s injection 2021-05 00:00: 00 Yes [id number] 120mg inject 120 mg under the skin once every month. [facility] galcanezuma b-gnlm prefilled (EMGALITY) subcutaneou s injection 2021-05 00:00: 00 Yes [id number] 120mg inject 120 mg under the skin once every month. [facility] galcanezuma b-gnlm prefilled (EMGALITY) subcutaneou s injection 2021-05 00:00: 00 Yes [id number] 120mg inject 120 mg under the skin once every month. [facility] galcanezuma b-gnlm prefilled (EMGALITY) subcutaneou s injection 2021-05 00:00: 00 Yes [id number] 120mg inject 120 mg under the skin once every month. [facility] galcanezuma b-gnlm prefilled (EMGALITY) subcutaneou s injection 2021-05 00:00: 00 Yes [id number] 120mg inject 120 mg under the skin once every month. [facility] galcanezuma b-gnlm prefilled (EMGALITY) subcutaneou s injection 2021-05 00:00: 00 Yes [id number] 120mg inject 120 mg under the skin once every month. [facility] galcanezuma b-gnlm prefilled (EMGALITY) subcutaneou s injection 2021-05 00:00: 00 Yes [id number] 120mg inject 120 mg under the skin once every month. [facility] galcanezuma b-gnlm prefilled (EMGALITY) subcutaneou s injection 2021-05 00:00: 00 Yes [id number] 120mg inject 120 mg under the skin once every month. [facility] galcanezuma b-gnlm prefilled (EMGALITY) subcutaneou s injection 2021-05 00:00: 00 Yes [id number] 120mg inject 120 mg under the skin once every month. [facility] galcanezuma b-gnlm prefilled (EMGALITY) subcutaneou s injection 2021-05 00:00: 00 Yes [id number] 120mg inject 120 mg under the skin once every month. [facility] galcanezuma b-gnlm prefilled (EMGALITY) subcutaneou s injection 2021-05 00:00: 00 Yes [id number] 120mg inject 120 mg under the skin once every month. [facility] galcanezuma b-gnlm prefilled (EMGALITY) subcutaneou s injection 2021-05 00:00: 00 Yes [id number] 120mg inject 120 mg under the skin once every month. [facility] galcanezuma b-gnlm prefilled (EMGALITY) subcutaneou s injection 2021-05 00:00: 00 Yes [id number] 120mg inject 120 mg under the skin once every month. [facility] galcanezuma b-gnlm prefilled (EMGALITY) subcutaneou s injection 2021-05 00:00: 00 Yes [id number] 120mg inject 120 mg under the skin once every month. [facility] galcanezuma b-gnlm prefilled (EMGALITY) subcutaneou s injection 2021-05 00:00: 00 Yes [id number] 120mg inject 120 mg under the skin once every month. [facility] galcanezuma b-gnlm prefilled (EMGALITY) subcutaneou s injection 2021-05 00:00: 00 Yes [id number] 120mg inject 120 mg under the skin once every month. [facility] galcanezuma b-gnlm prefilled (EMGALITY) subcutaneou s injection 2021-05 00:00: 00 Yes [id number] 120mg inject 120 mg under the skin once every month. [facility] galcanezuma b-gnlm prefilled (EMGALITY) subcutaneou s injection 2021-05 00:00: 00 Yes [id number] 120mg inject 120 mg under the skin once every month. [facility] galcanezuma b-gnlm prefilled (EMGALITY) subcutaneou s injection 2021-05 00:00: 00 Yes [id number] 120mg inject 120 mg under the skin once every month. [facility] galcanezuma b-gnlm prefilled (EMGALITY) subcutaneou s injection 2021-05 00:00: 00 Yes [id number] 120mg inject 120 mg under the skin once every month. [facility] galcanezuma b-gnlm prefilled (EMGALITY) subcutaneou s injection 2021-05 00:00: 00 Yes [id number] 120mg inject 120 mg under the skin once every month. [facility] galcanezuma b-gnlm prefilled (EMGALITY) subcutaneou s injection 2021-05 00:00: 00 Yes [id number] 120mg inject 120 mg under the skin once every month. [facility] galcanezuma b-gnlm prefilled (EMGALITY) subcutaneou s injection 2021-05 00:00: 00 Yes [id number] 120mg inject 120 mg under the skin once every month. [facility] galcanezuma b-gnlm prefilled (EMGALITY) subcutaneou s injection 2021-05 00:00: 00 Yes [id number] 120mg inject 120 mg under the skin once every month. [facility] galcanezuma b-gnlm prefilled (EMGALITY) subcutaneou s injection 2021-05 00:00: 00 Yes [id number] 120mg inject 120 mg under the skin once every month. [facility] galcanezuma b-gnlm prefilled (EMGALITY) subcutaneou s injection 2021-05 00:00: 00 Yes [id number] 120mg inject 120 mg under the skin once every month. [facility] galcanezuma b-gnlm prefilled (EMGALITY) subcutaneou s injection 2021-05 00:00: 00 Yes [id number] 120mg inject 120 mg under the skin once every month. [facility] galcanezuma b-gnlm prefilled (EMGALITY) subcutaneou s injection 2021-05 00:00: 00 Yes [id number] 120mg inject 120 mg under the skin once every month. [facility] galcanezuma b-gnlm prefilled (EMGALITY) subcutaneou s injection 2021-05 00:00: 00 Yes [id number] 120mg inject 120 mg under the skin once every month. [facility] galcanezuma b-gnlm prefilled (EMGALITY) subcutaneou s injection 2021-05 00:00: 00 Yes [id number] 120mg inject 120 mg under the skin once every month. [facility] galcanezuma b-gnlm prefilled (EMGALITY) subcutaneou s injection 2021-05 00:00: 00 Yes [id number] 120mg inject 120 mg under the skin once every month. [facility] methocarbam oL (ROBAXIN) injection 1,000 mg 2021-05 04:00: 00 Yes 1000mg 1,000 mg, Intravenou s, Q8H, First dose on 04/07/22 at 2200, Until Discontinu ed, Routine [facility] ketorolac (TORADOL) injection 30 mg 2021-05 00:45: 00 04-07 23:45 :00 No 30mg 30 mg, Slow IV Push, ONCE, 1 dose, On 04/07/22 at 1845, Routine [facility] HYDROcodone -acetaminop hen (NORCO) 10-325 mg tablet 1 tablet 2021-05 00:30: 00 04-07 23:45 :00 No 1{tbl} 1 tablet, Oral, ONCE NOW, 1 dose, On 04/07/22 at 1830, [facility] (BENADRYL[facility] injection 12.5 mg 2021-05 23:45: 00 04-07 23:46 :00 No 12.5mg 12.5 mg, Slow IV Push, ONCE, 1 dose, On 04/07/22 at 1745, STAT [facility] butorphanol (STADOL) injection 1 mg 2021-05 23:15: 00 04-07 22:48 :00 No 1mg 1 mg, IV Push, ONCE, 1 dose, On 04/07/22 at 1715, Routine [facility] NaCl 0.9% (NS) bolus infusion 1,000 mL 2021-05 23:15: 00 04-07 23:49 :00 No 1000mL at 999 mL/hr, 1,000 mL, IV Infusion, ONCE, 1 dose, On 04/07/22 at 1715, [place] [facility] ketorolac (TORADOL) injection 15 mg 2021-05 19:30: 00 03-24 18:45 :00 No 15mg 15 mg, Slow IV Push, ONCE, 1 dose, On 03/24/22 at 1330, Routine [facility] butorphanol (STADOL) injection 1 mg 2021-05 18:00: 00 03-24 17:26 :00 No 1mg 1 mg, Intravenou s, ONCE, 1 dose, On 03/24/22 at 1200, Routine [facility] proMETHazin e (PHENERGAN) 25 mg in NaCl 0.9% (NS) 50 mL IV piggyback 2021-05 18:00: 00 03-24 18:13 :00 No 25mg 25 mg, IV Piggyback, ONCE, 1 dose, On 03/24/22 at 1200, [place] [facility] butorphanol (STADOL) injection 1 mg 2021-05 17:15: 00 03-24 16:26 :00 No 1mg 1 mg, IV Push, ONCE, 1 dose, On 03/24/22 at 1115, Routine [facility] diphenhydrA MINE (BENADRYL) injection 25 mg 2021-05 15:30: 00 03-24 15:40 :00 No 25mg 25 mg, Slow IV Push, ONCE, 1 dose, On 03/24/22 at 0930, STAT [facility] ondansetron (ZOFRAN (PF)) injection 4 mg 2021-05 15:30: 00 03-24 14:25 :00 No 4mg 4 mg, Slow IV Push, ONCE, 1 dose, On 03/24/22 at 0930, [place] [facility] NaCl 0.9% (NS) IV infusion 1,000 mL 2021-05 15:15: 00 03-24 17:25 :00 No 1000mL at 999 mL/hr, Intravenou s, ONCE, 1 dose, [facility] 03/24/22 at 0915[facility] 2 gram/50 mL (4 %) infusion 2 g 2021-05 15:00: 00 03-24 14:47 :00 No 2g 2 g, IV Piggyback, Administer over 20 Minutes, ONCE, 1 dose, On 03/24/22 at 0900, Routine [facility] dexamethaso ne sod phos PF injection 6 mg 2021-05 14:15: 00 03-24 14:14 :00 No 6mg 6 mg, Slow IV Push, ONCE, 1 dose, On 03/24/22 at 0815, 1 mL [facility] diphenhydrA MINE (BENADRYL) injection 25 mg 2021-05 14:15: 00 03-24 14:16 :00 No 25mg 25 mg, Slow IV Push, ONCE, 1 dose, On 03/24/22 at 0815, STAT [facility] ALBUTEROL INHALE 2021-05 07:58: 13 03-24 00:00 :00 No [facility] rizatriptan 10 mg tablet 2021-05 00:00: 00 Yes [id number] 10mg Take 1 tablet by mouth as needed for Migraine. May repeat in 2 hours if needed [facility] Butalbital- Acetaminoph en-Caff (FIORICET) 50-300-40 mg per capsule 2021-05 00:00: 00 Yes [id number] 1{capsu le} Take 1 capsule by mouth every 6 (six) hours as needed for Other (headache) . [facility] magnesium oxide 200 mg magnesium Tab 2021-05 00:00: 00 Yes [id number] 200mg Take 200 mg by mouth 2 (two) times daily. Indication s: headache [facility] rizatriptan 10 mg tablet 2021-05 00:00: 00 Yes [id number] 10mg Take 1 tablet by mouth as needed for Migraine. May repeat in 2 hours if needed [facility] Butalbital- Acetaminoph en-Caff (FIORICET) 50-300-40 mg per capsule 2021-05 00:00: 00 Yes [id number] 1{capsu le} Take 1 capsule by mouth every 6 (six) hours as needed for Other (headache) . [facility] magnesium oxide 200 mg magnesium Tab 2021-05 00:00: 00 Yes [id number] 200mg Take 200 mg by mouth 2 (two) times daily. Indication s: headache [facility] rizatriptan 10 mg tablet 2021-05 00:00: 00 Yes [id number] 10mg Take 1 tablet by mouth as needed for Migraine. May repeat in 2 hours if needed [facility] Butalbital- Acetaminoph en-Caff (FIORICET) 50-300-40 mg per capsule 2021-05 00:00: 00 Yes [id number] 1{capsu le} Take 1 capsule by mouth every 6 (six) hours as needed for Other (headache) . [facility] magnesium oxide 200 mg magnesium Tab 2021-05 00:00: 00 Yes [id number] 200mg Take 200 mg by mouth 2 (two) times daily. Indication s: headache [facility] rizatriptan 10 mg tablet 2021-05 00:00: 00 Yes [id number] 10mg Take 1 tablet by mouth as needed for Migraine. May repeat in 2 hours if needed [facility] Butalbital- Acetaminoph en-Caff (FIORICET) 50-300-40 mg per capsule 2021-05 00:00: 00 Yes [id number] 1{capsu le} Take 1 capsule by mouth every 6 (six) hours as needed for Other (headache) . [facility] rizatriptan 10 mg tablet 2021-05 00:00: 00 Yes [id number] 10mg Take 1 tablet by mouth as needed for Migraine. May repeat in 2 hours if needed [facility] Butalbital- Acetaminoph en-Caff (FIORICET) 50-300-40 mg per capsule 2021-05 00:00: 00 Yes [id number] 1{capsu le} Take 1 capsule by mouth every 6 (six) hours as needed for Other (headache) . [facility] rizatriptan 10 mg tablet 2021-05 00:00: 00 Yes [id number] 10mg Take 1 tablet by mouth as needed for Migraine. May repeat in 2 hours if needed [facility] Butalbital- Acetaminoph en-Caff (FIORICET) 50-300-40 mg per capsule 2021-05 00:00: 00 Yes [id number] 1{capsu le} Take 1 capsule by mouth every 6 (six) hours as needed for Other (headache) . [facility] rizatriptan 10 mg tablet 2021-05 00:00: 00 Yes [id number] 10mg Take 1 tablet by mouth as needed for Migraine. May repeat in 2 hours if needed [facility] Butalbital- Acetaminoph en-Caff (FIORICET) 50-300-40 mg per capsule 2021-05 00:00: 00 Yes [id number] 1{capsu le} Take 1 capsule by mouth every 6 (six) hours as needed for Other (headache) . [facility] rizatriptan 10 mg tablet 2021-05 00:00: 00 Yes [id number] 10mg Take 1 tablet by mouth as needed for Migraine. May repeat in 2 hours if needed [facility] Butalbital- Acetaminoph en-Caff (FIORICET) 50-300-40 mg per capsule 2021-05 00:00: 00 Yes [id number] 1{capsu le} Take 1 capsule by mouth every 6 (six) hours as needed for Other (headache) . [facility] rizatriptan 10 mg tablet 2021-05 00:00: 00 Yes [id number] 10mg Take 1 tablet by mouth as needed for Migraine. May repeat in 2 hours if needed [facility] Butalbital- Acetaminoph en-Caff (FIORICET) 50-300-40 mg per capsule 2021-05 00:00: 00 Yes [id number] 1{capsu le} Take 1 capsule by mouth every 6 (six) hours as needed for Other (headache) . [facility] rizatriptan 10 mg tablet 2021-05 00:00: 00 Yes [id number] 10mg Take 1 tablet by mouth as needed for Migraine. May repeat in 2 hours if needed [facility] Butalbital- Acetaminoph en-Caff (FIORICET) 50-300-40 mg per capsule 2021-05 00:00: 00 Yes [id number] 1{capsu le} Take 1 capsule by mouth every 6 (six) hours as needed for Other (headache) . [facility] rizatriptan 10 mg tablet 2021-05 00:00: 00 Yes [id number] 10mg Take 1 tablet by mouth as needed for Migraine. May repeat in 2 hours if needed [facility] Butalbital- Acetaminoph en-Caff (FIORICET) 50-300-40 mg per capsule 2021-05 00:00: 00 Yes [id number] 1{capsu le} Take 1 capsule by mouth every 6 (six) hours as needed for Other (headache) . [facility] rizatriptan 10 mg tablet 2021-05 00:00: 00 Yes [id number] 10mg Take 1 tablet by mouth as needed for Migraine. May repeat in 2 hours if needed [facility] Butalbital- Acetaminoph en-Caff (FIORICET) 50-300-40 mg per capsule 2021-05 00:00: 00 Yes [id number] 1{capsu le} Take 1 capsule by mouth every 6 (six) hours as needed for Other (headache) . [facility] rizatriptan 10 mg tablet 2021-05 00:00: 00 Yes [id number] 10mg Take 1 tablet by mouth as needed for Migraine. May repeat in 2 hours if needed [facility] Butalbital- Acetaminoph en-Caff (FIORICET) 50-300-40 mg per capsule 2021-05 00:00: 00 Yes [id number] 1{capsu le} Take 1 capsule by mouth every 6 (six) hours as needed for Other (headache) . [facility] rizatriptan 10 mg tablet 2021-05 00:00: 00 Yes [id number] 10mg Take 1 tablet by mouth as needed for Migraine. May repeat in 2 hours if needed [facility] Butalbital- Acetaminoph en-Caff (FIORICET) 50-300-40 mg per capsule 2021-05 00:00: 00 Yes [id number] 1{capsu le} Take 1 capsule by mouth every 6 (six) hours as needed for Other (headache) . [facility] rizatriptan 10 mg tablet 2021-05 00:00: 00 Yes [id number] 10mg Take 1 tablet by mouth as needed for Migraine. May repeat in 2 hours if needed [facility] Butalbital- Acetaminoph en-Caff (FIORICET) 50-300-40 mg per capsule 2021-05 00:00: 00 Yes [id number] 1{capsu le} Take 1 capsule by mouth every 6 (six) hours as needed for Other (headache) . [facility] rizatriptan 10 mg tablet 2021-05 00:00: 00 Yes [id number] 10mg Take 1 tablet by mouth as needed for Migraine. May repeat in 2 hours if needed [facility] Butalbital- Acetaminoph en-Caff (FIORICET) 50-300-40 mg per capsule 2021-05 00:00: 00 Yes [id number] 1{capsu le} Take 1 capsule by mouth every 6 (six) hours as needed for Other (headache) . [facility] rizatriptan 10 mg tablet 2021-05 00:00: 00 Yes [id number] 10mg Take 1 tablet by mouth as needed for Migraine. May repeat in 2 hours if needed [facility] Butalbital- Acetaminoph en-Caff (FIORICET) 50-300-40 mg per capsule 2021-05 00:00: 00 Yes [id number] 1{capsu le} Take 1 capsule by mouth every 6 (six) hours as needed for Other (headache) . [facility] rizatriptan 10 mg tablet 2021-05 00:00: 00 Yes [id number] 10mg Take 1 tablet by mouth as needed for Migraine. May repeat in 2 hours if needed [facility] Butalbital- Acetaminoph en-Caff (FIORICET) 50-300-40 mg per capsule 2021-05 00:00: 00 Yes [id number] 1{capsu le} Take 1 capsule by mouth every 6 (six) hours as needed for Other (headache) . [facility] rizatriptan 10 mg tablet 2021-05 00:00: 00 Yes [id number] 10mg Take 1 tablet by mouth as needed for Migraine. May repeat in 2 hours if needed [facility] Butalbital- Acetaminoph en-Caff (FIORICET) 50-300-40 mg per capsule 2021-05 00:00: 00 Yes [id number] 1{capsu le} Take 1 capsule by mouth every 6 (six) hours as needed for Other (headache) . [facility] rizatriptan 10 mg tablet 2021-05 00:00: 00 Yes [id number] 10mg Take 1 tablet by mouth as needed for Migraine. May repeat in 2 hours if needed [facility] Butalbital- Acetaminoph en-Caff (FIORICET) 50-300-40 mg per capsule 2021-05 00:00: 00 Yes [id number] 1{capsu le} Take 1 capsule by mouth every 6 (six) hours as needed for Other (headache) . [facility] rizatriptan 10 mg tablet 2021-05 00:00: 00 Yes [id number] 10mg Take 1 tablet by mouth as needed for Migraine. May repeat in 2 hours if needed [facility] Butalbital- Acetaminoph en-Caff (FIORICET) 50-300-40 mg per capsule 2021-05 00:00: 00 Yes [id number] 1{capsu le} Take 1 capsule by mouth every 6 (six) hours as needed for Other (headache) . [facility] rizatriptan 10 mg tablet 2021-05 00:00: 00 Yes [id number] 10mg Take 1 tablet by mouth as needed for Migraine. May repeat in 2 hours if needed [facility] Butalbital- Acetaminoph en-Caff (FIORICET) 50-300-40 mg per capsule 2021-05 00:00: 00 Yes [id number] 1{capsu le} Take 1 capsule by mouth every 6 (six) hours as needed for Other (headache) . [facility] rizatriptan 10 mg tablet 2021-05 00:00: 00 Yes [id number] 10mg Take 1 tablet by mouth as needed for Migraine. May repeat in 2 hours if needed [facility] Butalbital- Acetaminoph en-Caff (FIORICET) 50-300-40 mg per capsule 2021-05 00:00: 00 Yes [id number] 1{capsu le} Take 1 capsule by mouth every 6 (six) hours as needed for Other (headache) . [facility] rizatriptan 10 mg tablet 2021-05 00:00: 00 Yes [id number] 10mg Take 1 tablet by mouth as needed for Migraine. May repeat in 2 hours if needed [facility] Butalbital- Acetaminoph en-Caff (FIORICET) 50-300-40 mg per capsule 2021-05 00:00: 00 Yes [id number] 1{capsu le} Take 1 capsule by mouth every 6 (six) hours as needed for Other (headache) . [facility] rizatriptan 10 mg tablet 2021-05 00:00: 00 Yes [id number] 10mg Take 1 tablet by mouth as needed for Migraine. May repeat in 2 hours if needed [facility] Butalbital- Acetaminoph en-Caff (FIORICET) 50-300-40 mg per capsule 2021-05 00:00: 00 Yes [id number] 1{capsu le} Take 1 capsule by mouth every 6 (six) hours as needed for Other (headache) . [facility] rizatriptan 10 mg tablet 2021-05 00:00: 00 Yes [id number] 10mg Take 1 tablet by mouth as needed for Migraine. May repeat in 2 hours if needed [facility] Butalbital- Acetaminoph en-Caff (FIORICET) 50-300-40 mg per capsule 2021-05 00:00: 00 Yes [id number] 1{capsu le} Take 1 capsule by mouth every 6 (six) hours as needed for Other (headache) . [facility] rizatriptan 10 mg tablet 2021-05 00:00: 00 Yes [id number] 10mg Take 1 tablet by mouth as needed for Migraine. May repeat in 2 hours if needed [facility] Butalbital- Acetaminoph en-Caff (FIORICET) 50-300-40 mg per capsule 2021-05 00:00: 00 Yes [id number] 1{capsu le} Take 1 capsule by mouth every 6 (six) hours as needed for Other (headache) . [facility] rizatriptan 10 mg tablet 2021-05 00:00: 00 Yes [id number] 10mg Take 1 tablet by mouth as needed for Migraine. May repeat in 2 hours if needed [facility] Butalbital- Acetaminoph en-Caff (FIORICET) 50-300-40 mg per capsule 2021-05 00:00: 00 Yes [id number] 1{capsu le} Take 1 capsule by mouth every 6 (six) hours as needed for Other (headache) . [facility] rizatriptan 10 mg tablet 2021-05 00:00: 00 Yes [id number] 10mg Take 1 tablet by mouth as needed for Migraine. May repeat in 2 hours if needed [facility] Butalbital- Acetaminoph en-Caff (FIORICET) 50-300-40 mg per capsule 2021-05 00:00: 00 Yes [id number] 1{capsu le} Take 1 capsule by mouth every 6 (six) hours as needed for Other (headache) . [facility] rizatriptan 10 mg tablet 2021-05 00:00: 00 Yes [id number] 10mg Take 1 tablet by mouth as needed for Migraine. May repeat in 2 hours if needed [facility] Butalbital- Acetaminoph en-Caff (FIORICET) 50-300-40 mg per capsule 2021-05 00:00: 00 Yes [id number] 1{capsu le} Take 1 capsule by mouth every 6 (six) hours as needed for Other (headache) . [facility] rizatriptan 10 mg tablet 2021-05 00:00: 00 Yes [id number] 10mg Take 1 tablet by mouth as needed for Migraine. May repeat in 2 hours if needed [facility] Butalbital- Acetaminoph en-Caff (FIORICET) 50-300-40 mg per capsule 2021-05 00:00: 00 Yes [id number] 1{capsu le} Take 1 capsule by mouth every 6 (six) hours as needed for Other (headache) . [facility] rizatriptan 10 mg tablet 2021-05 00:00: 00 Yes [id number] 10mg Take 1 tablet by mouth as needed for Migraine. May repeat in 2 hours if needed [facility] Butalbital- Acetaminoph en-Caff (FIORICET) 50-300-40 mg per capsule 2021-05 00:00: 00 Yes [id number] 1{capsu le} Take 1 capsule by mouth every 6 (six) hours as needed for Other (headache) . [facility] rizatriptan 10 mg tablet 2021-05 00:00: 00 Yes [id number] 10mg Take 1 tablet by mouth as needed for Migraine. May repeat in 2 hours if needed [facility] Butalbital- Acetaminoph en-Caff (FIORICET) 50-300-40 mg per capsule 2021-05 00:00: 00 Yes [id number] 1{capsu le} Take 1 capsule by mouth every 6 (six) hours as needed for Other (headache) . [facility] rizatriptan 10 mg tablet 2021-05 00:00: 00 Yes [id number] 10mg Take 1 tablet by mouth as needed for Migraine. May repeat in 2 hours if needed [facility] Butalbital- Acetaminoph en-Caff (FIORICET) 50-300-40 mg per capsule 2021-05 00:00: 00 Yes [id number] 1{capsu le} Take 1 capsule by mouth every 6 (six) hours as needed for Other (headache) . [facility] rizatriptan 10 mg tablet 2021-05 00:00: 00 Yes [id number] 10mg Take 1 tablet by mouth as needed for Migraine. May repeat in 2 hours if needed [facility] Butalbital- Acetaminoph en-Caff (FIORICET) 50-300-40 mg per capsule 2021-05 00:00: 00 Yes [id number] 1{capsu le} Take 1 capsule by mouth every 6 (six) hours as needed for Other (headache) . [facility] rizatriptan 10 mg tablet 2021-05 00:00: 00 Yes [id number] 10mg Take 1 tablet by mouth as needed for Migraine. May repeat in 2 hours if needed [facility] Butalbital- Acetaminoph en-Caff (FIORICET) 50-300-40 mg per capsule 2021-05 00:00: 00 Yes [id number] 1{capsu le} Take 1 capsule by mouth every 6 (six) hours as needed for Other (headache) . [facility] rizatriptan 10 mg tablet 2021-05 00:00: 00 Yes [id number] 10mg Take 1 tablet by mouth as needed for Migraine. May repeat in 2 hours if needed [facility] Butalbital- Acetaminoph en-Caff (FIORICET) 50-300-40 mg per capsule 2021-05 00:00: 00 Yes [id number] 1{capsu le} Take 1 capsule by mouth every 6 (six) hours as needed for Other (headache) . [facility] rizatriptan 10 mg tablet 2021-05 00:00: 00 Yes [id number] 10mg Take 1 tablet by mouth as needed for Migraine. May repeat in 2 hours if needed [facility] Butalbital- Acetaminoph en-Caff (FIORICET) 50-300-40 mg per capsule 2021-05 00:00: 00 Yes [id number] 1{capsu le} Take 1 capsule by mouth every 6 (six) hours as needed for Other (headache) . [facility] rizatriptan 10 mg tablet 2021-05 00:00: 00 Yes [id number] 10mg Take 1 tablet by mouth as needed for Migraine. May repeat in 2 hours if needed [facility] Butalbital- Acetaminoph en-Caff (FIORICET) 50-300-40 mg per capsule 2021-05 00:00: 00 Yes [id number] 1{capsu le} Take 1 capsule by mouth every 6 (six) hours as needed for Other (headache) . [facility] rizatriptan 10 mg tablet 2021-05 00:00: 00 Yes [id number] 10mg Take 1 tablet by mouth as needed for Migraine. May repeat in 2 hours if needed [facility] Butalbital- Acetaminoph en-Caff (FIORICET) 50-300-40 mg per capsule 2021-05 00:00: 00 Yes [id number] 1{capsu le} Take 1 capsule by mouth every 6 (six) hours as needed for Other (headache) . [facility] rizatriptan 10 mg tablet 2021-05 00:00: 00 Yes [id number] 10mg Take 1 tablet by mouth as needed for Migraine. May repeat in 2 hours if needed [facility] Butalbital- Acetaminoph en-Caff (FIORICET) 50-300-40 mg per capsule 2021-05 00:00: 00 Yes [id number] 1{capsu le} Take 1 capsule by mouth every 6 (six) hours as needed for Other (headache) . [facility] magnesium oxide 200 mg magnesium Tab 2021-05 00:00: 00 04-07 00:00 :00 No [id number] 200mg Take 200 mg by mouth 2 (two) times daily. Indication s: headache [facility] SUMAtriptan 50 mg tablet 2021-05 00:00: 00 Yes 50mg Take 1 tablet by mouth as needed for Migraine. Take one tablet at onset of migraine, may take another tablet 2 hours after initial dose if no relief with first dose. DO NOT EXCEED 100mg in a 24 hour period. [facility] SUMAtriptan 50 mg tablet 2021-05 00:00: 00 Yes 50mg Take 1 tablet by mouth as needed for Migraine. Take one tablet at onset of migraine, may take another tablet 2 hours after initial dose if no relief with first dose. DO NOT EXCEED 100mg in a 24 hour period. [facility] SUMAtriptan 50 mg tablet 2021-05 00:00: 00 Yes 50mg Take 1 tablet by mouth as needed for Migraine. Take one tablet at onset of migraine, may take another tablet 2 hours after initial dose if no relief with first dose. DO NOT EXCEED 100mg in a 24 hour period. [facility] SUMAtriptan 50 mg tablet 2021-05 00:00: 00 Yes 50mg Take 1 tablet by mouth as needed for Migraine. Take one tablet at onset of migraine, may take another tablet 2 hours after initial dose if no relief with first dose. DO NOT EXCEED 100mg in a 24 hour period. [facility] SUMAtriptan 50 mg tablet 2021-05 00:00: 00 Yes 50mg Take 1 tablet by mouth as needed for Migraine. Take one tablet at onset of migraine, may take another tablet 2 hours after initial dose if no relief with first dose. DO NOT EXCEED 100mg in a 24 hour period. [facility] SUMAtriptan 50 mg tablet 2021-05 00:00: 00 Yes 50mg Take 1 tablet by mouth as needed for Migraine. Take one tablet at onset of migraine, may take another tablet 2 hours after initial dose if no relief with first dose. DO NOT EXCEED 100mg in a 24 hour period. [facility] SUMAtriptan 50 mg tablet 2021-05 00:00: 00 Yes 50mg Take 1 tablet by mouth as needed for Migraine. Take one tablet at onset of migraine, may take another tablet 2 hours after initial dose if no relief with first dose. DO NOT EXCEED 100mg in a 24 hour period. [facility] SUMAtriptan 50 mg tablet 2021-05 00:00: 00 Yes 50mg Take 1 tablet by mouth as needed for Migraine. Take one tablet at onset of migraine, may take another tablet 2 hours after initial dose if no relief with first dose. DO NOT EXCEED 100mg in a 24 hour period. [facility] SUMAtriptan 50 mg tablet 2021-05 00:00: 00 Yes 50mg Take 1 tablet by mouth as needed for Migraine. Take one tablet at onset of migraine, may take another tablet 2 hours after initial dose if no relief with first dose. DO NOT EXCEED 100mg in a 24 hour period. [facility] SUMAtriptan 50 mg tablet 2021-05 00:00: 00 Yes 50mg Take 1 tablet by mouth as needed for Migraine. Take one tablet at onset of migraine, may take another tablet 2 hours after initial dose if no relief with first dose. DO NOT EXCEED 100mg in a 24 hour period. [facility] SUMAtriptan 50 mg tablet 2021-05 00:00: 00 Yes 50mg Take 1 tablet by mouth as needed for Migraine. Take one tablet at onset of migraine, may take another tablet 2 hours after initial dose if no relief with first dose. DO NOT EXCEED 100mg in a 24 hour period. [facility] SUMAtriptan 50 mg tablet 2021-05 00:00: 00 Yes 50mg Take 1 tablet by mouth as needed for Migraine. Take one tablet at onset of migraine, may take another tablet 2 hours after initial dose if no relief with first dose. DO NOT EXCEED 100mg in a 24 hour period. [facility] SUMAtriptan 50 mg tablet 2021-05 00:00: 00 Yes 50mg Take 1 tablet by mouth as needed for Migraine. Take one tablet at onset of migraine, may take another tablet 2 hours after initial dose if no relief with first dose. DO NOT EXCEED 100mg in a 24 hour period. [facility] SUMAtriptan 50 mg tablet 2021-05 00:00: 00 Yes 50mg Take 1 tablet by mouth as needed for Migraine. Take one tablet at onset of migraine, may take another tablet 2 hours after initial dose if no relief with first dose. DO NOT EXCEED 100mg in a 24 hour period. [facility] SUMAtriptan 50 mg tablet 2021-05 00:00: 00 Yes 50mg Take 1 tablet by mouth as needed for Migraine. Take one tablet at onset of migraine, may take another tablet 2 hours after initial dose if no relief with first dose. DO NOT EXCEED 100mg in a 24 hour period. [facility] SUMAtriptan 50 mg tablet 2021-05 00:00: 00 Yes 50mg Take 1 tablet by mouth as needed for Migraine. Take one tablet at onset of migraine, may take another tablet 2 hours after initial dose if no relief with first dose. DO NOT EXCEED 100mg in a 24 hour period. [facility] SUMAtriptan 50 mg tablet 2021-05 00:00: 00 Yes 50mg Take 1 tablet by mouth as needed for Migraine. Take one tablet at onset of migraine, may take another tablet 2 hours after initial dose if no relief with first dose. DO NOT EXCEED 100mg in a 24 hour period. [facility] SUMAtriptan 50 mg tablet 2021-05 00:00: 00 Yes 50mg Take 1 tablet by mouth as needed for Migraine. Take one tablet at onset of migraine, may take another tablet 2 hours after initial dose if no relief with first dose. DO NOT EXCEED 100mg in a 24 hour period. [facility] SUMAtriptan 50 mg tablet 2021-05 00:00: 00 Yes 50mg Take 1 tablet by mouth as needed for Migraine. Take one tablet at onset of migraine, may take another tablet 2 hours after initial dose if no relief with first dose. DO NOT EXCEED 100mg in a 24 hour period. [facility] SUMAtriptan 50 mg tablet 2021-05 00:00: 00 Yes 50mg Take 1 tablet by mouth as needed for Migraine. Take one tablet at onset of migraine, may take another tablet 2 hours after initial dose if no relief with first dose. DO NOT EXCEED 100mg in a 24 hour period. [facility] SUMAtriptan 50 mg tablet 2021-05 00:00: 00 Yes 50mg Take 1 tablet by mouth as needed for Migraine. Take one tablet at onset of migraine, may take another tablet 2 hours after initial dose if no relief with first dose. DO NOT EXCEED 100mg in a 24 hour period. [facility] SUMAtriptan 50 mg tablet 2021-05 00:00: 00 Yes 50mg Take 1 tablet by mouth as needed for Migraine. Take one tablet at onset of migraine, may take another tablet 2 hours after initial dose if no relief with first dose. DO NOT EXCEED 100mg in a 24 hour period. [facility] SUMAtriptan 50 mg tablet 2021-05 00:00: 00 Yes 50mg Take 1 tablet by mouth as needed for Migraine. Take one tablet at onset of migraine, may take another tablet 2 hours after initial dose if no relief with first dose. DO NOT EXCEED 100mg in a 24 hour period. [facility] SUMAtriptan 50 mg tablet 2021-05 00:00: 00 Yes 50mg Take 1 tablet by mouth as needed for Migraine. Take one tablet at onset of migraine, may take another tablet 2 hours after initial dose if no relief with first dose. DO NOT EXCEED 100mg in a 24 hour period. [facility] SUMAtriptan 50 mg tablet 2021-05 00:00: 00 Yes 50mg Take 1 tablet by mouth as needed for Migraine. Take one tablet at onset of migraine, may take another tablet 2 hours after initial dose if no relief with first dose. DO NOT EXCEED 100mg in a 24 hour period. [facility] SUMAtriptan 50 mg tablet 2021-05 00:00: 00 Yes 50mg Take 1 tablet by mouth as needed for Migraine. Take one tablet at onset of migraine, may take another tablet 2 hours after initial dose if no relief with first dose. DO NOT EXCEED 100mg in a 24 hour period. [facility] SUMAtriptan 50 mg tablet 2021-05 00:00: 00 Yes 50mg Take 1 tablet by mouth as needed for Migraine. Take one tablet at onset of migraine, may take another tablet 2 hours after initial dose if no relief with first dose. DO NOT EXCEED 100mg in a 24 hour period. [facility] SUMAtriptan 50 mg tablet 2021-05 00:00: 00 Yes 50mg Take 1 tablet by mouth as needed for Migraine. Take one tablet at onset of migraine, may take another tablet 2 hours after initial dose if no relief with first dose. DO NOT EXCEED 100mg in a 24 hour period. [facility] SUMAtriptan 50 mg tablet 2021-05 00:00: 00 Yes 50mg Take 1 tablet by mouth as needed for Migraine. Take one tablet at onset of migraine, may take another tablet 2 hours after initial dose if no relief with first dose. DO NOT EXCEED 100mg in a 24 hour period. [facility] SUMAtriptan 50 mg tablet 2021-05 00:00: 00 Yes 50mg Take 1 tablet by mouth as needed for Migraine. Take one tablet at onset of migraine, may take another tablet 2 hours after initial dose if no relief with first dose. DO NOT EXCEED 100mg in a 24 hour period. [facility] SUMAtriptan 50 mg tablet 2021-05 00:00: 00 Yes 50mg Take 1 tablet by mouth as needed for Migraine. Take one tablet at onset of migraine, may take another tablet 2 hours after initial dose if no relief with first dose. DO NOT EXCEED 100mg in a 24 hour period. [facility] SUMAtriptan 50 mg tablet 2021-05 00:00: 00 Yes 50mg Take 1 tablet by mouth as needed for Migraine. Take one tablet at onset of migraine, may take another tablet 2 hours after initial dose if no relief with first dose. DO NOT EXCEED 100mg in a 24 hour period. [facility] SUMAtriptan 50 mg tablet 2021-05 00:00: 00 Yes 50mg Take 1 tablet by mouth as needed for Migraine. Take one tablet at onset of migraine, may take another tablet 2 hours after initial dose if no relief with first dose. DO NOT EXCEED 100mg in a 24 hour period. [facility] SUMAtriptan 50 mg tablet 2021-05 00:00: 00 Yes 50mg Take 1 tablet by mouth as needed for Migraine. Take one tablet at onset of migraine, may take another tablet 2 hours after initial dose if no relief with first dose. DO NOT EXCEED 100mg in a 24 hour period. [facility] SUMAtriptan 50 mg tablet 2021-05 00:00: 00 Yes 50mg Take 1 tablet by mouth as needed for Migraine. Take one tablet at onset of migraine, may take another tablet 2 hours after initial dose if no relief with first dose. DO NOT EXCEED 100mg in a 24 hour period. [facility] SUMAtriptan 50 mg tablet 2021-05 00:00: 00 Yes 50mg Take 1 tablet by mouth as needed for Migraine. Take one tablet at onset of migraine, may take another tablet 2 hours after initial dose if no relief with first dose. DO NOT EXCEED 100mg in a 24 hour period. [facility] SUMAtriptan 50 mg tablet 2021-05 00:00: 00 Yes 50mg Take 1 tablet by mouth as needed for Migraine. Take one tablet at onset of migraine, may take another tablet 2 hours after initial dose if no relief with first dose. DO NOT EXCEED 100mg in a 24 hour period. [facility] SUMAtriptan 50 mg tablet 2021-05 00:00: 00 Yes 50mg Take 1 tablet by mouth as needed for Migraine. Take one tablet at onset of migraine, may take another tablet 2 hours after initial dose if no relief with first dose. DO NOT EXCEED 100mg in a 24 hour period. [facility] SUMAtriptan 50 mg tablet 2021-05 00:00: 00 Yes 50mg Take 1 tablet by mouth as needed for Migraine. Take one tablet at onset of migraine, may take another tablet 2 hours after initial dose if no relief with first dose. DO NOT EXCEED 100mg in a 24 hour period. [facility] SUMAtriptan 50 mg tablet 2021-05 00:00: 00 Yes 50mg Take 1 tablet by mouth as needed for Migraine. Take one tablet at onset of migraine, may take another tablet 2 hours after initial dose if no relief with first dose. DO NOT EXCEED 100mg in a 24 hour period. [facility] SUMAtriptan 50 mg tablet 2021-05 00:00: 00 Yes 50mg Take 1 tablet by mouth as needed for Migraine. Take one tablet at onset of migraine, may take another tablet 2 hours after initial dose if no relief with first dose. DO NOT EXCEED 100mg in a 24 hour period. [facility] SUMAtriptan 50 mg tablet 2021-05 00:00: 00 Yes 50mg Take 1 tablet by mouth as needed for Migraine. Take one tablet at onset of migraine, may take another tablet 2 hours after initial dose if no relief with first dose. DO NOT EXCEED 100mg in a 24 hour period. [facility] SUMAtriptan 50 mg tablet 2021-05 00:00: 00 Yes 50mg Take 1 tablet by mouth as needed for Migraine. Take one tablet at onset of migraine, may take another tablet 2 hours after initial dose if no relief with first dose. DO NOT EXCEED 100mg in a 24 hour period. [facility] SUMAtriptan 50 mg tablet 2021-05 00:00: 00 Yes 50mg Take 1 tablet by mouth as needed for Migraine. Take one tablet at onset of migraine, may take another tablet 2 hours after initial dose if no relief with first dose. DO NOT EXCEED 100mg in a 24 hour period. [facility] SUMAtriptan 50 mg tablet 2021-05 00:00: 00 Yes 50mg Take 1 tablet by mouth as needed for Migraine. Take one tablet at onset of migraine, may take another tablet 2 hours after initial dose if no relief with first dose. DO NOT EXCEED 100mg in a 24 hour period. [facility] FENTanyl PF (SUBLIMAZE (PF)) injection 50 mcg 2021-05 15:30: 00 03-15 14:56 :00 No 50ug 50 mcg, Slow IV Push, ONCE, 1 dose, On Kathie 03/15/22 at 1030, Routine [facility] proMETHazin e (PHENERGAN) tablet 25 mg 2021-05 14:45: 00 03-15 14:55 :00 No 25mg 25 mg, Oral, ONCE, 1 dose, On Kathie 03/15/22 at 0945, [place] [facility] FENTanyl PF (SUBLIMAZE (PF)) injection 50 mcg 2021-05 14:45: 00 03-15 13:58 :00 No 50ug 50 mcg, Slow IV Push, ONCE, 1 dose, On Kathie 03/15/22 at 0945, Routine [facility] ondansetron (ZOFRAN (PF)) injection 4 mg 2021-05 14:00: 00 03-15 13:58 :00 No 4mg 4 mg, Slow IV Push, ONCE, 1 dose, On Kathie 03/15/22 at 0900, [place] [facility] ondansetron 4 mg disintegrat ing tablet 2021-05 00:00: 00 Yes [id number] 4mg Take 1 tablet by mouth every 8 (eight) hours as needed for Nausea and Vomiting (N/V). [facility] ketorolac 10 mg tablet 2021-05 00:00: 00 Yes [id number] 10mg Take 1 tablet by mouth every 6 (six) hours as needed for Pain (scale 7-10). [facility] proMETHazin e 25 mg tablet 2021-05 00:00: 00 Yes [id number] 25mg Take 1 tablet by mouth every 6 (six) hours as needed for N/V unresponsi ve to Ondansetro n. [facility] ondansetron 4 mg disintegrat ing tablet 2021-05 00:00: 00 Yes [id number] 4mg Take 1 tablet by mouth every 8 (eight) hours as needed for Nausea and Vomiting (N/V). [facility] ketorolac 10 mg tablet 2021-05 00:00: 00 Yes [id number] 10mg Take 1 tablet by mouth every 6 (six) hours as needed for Pain (scale 7-10). [facility] proMETHazin e 25 mg tablet 2021-05 00:00: 00 Yes [id number] 25mg Take 1 tablet by mouth every 6 (six) hours as needed for N/V unresponsi ve to Ondansetro n. [facility] carvediloL 25 mg tablet 2021-05 00:00: 00 Yes [id number] 25mg Take 1 tablet by mouth in the morning and 1 tablet in the evening. Take with meals. [facility] ondansetron 4 mg disintegrat ing tablet 2021-05 00:00: 00 Yes [id number] 4mg Take 1 tablet by mouth every 8 (eight) hours as needed for Nausea and Vomiting (N/V). [facility] ketorolac 10 mg tablet 2021-05 00:00: 00 Yes [id number] 10mg Take 1 tablet by mouth every 6 (six) hours as needed for Pain (scale 7-10). [facility] proMETHazin e 25 mg tablet 2021-05 00:00: 00 Yes [id number] 25mg Take 1 tablet by mouth every 6 (six) hours as needed for N/V unresponsi ve to Ondansetro n. [facility] carvediloL 25 mg tablet 2021-05 00:00: 00 Yes [id number] 25mg Take 1 tablet by mouth in the morning and 1 tablet in the evening. Take with meals. [facility] ondansetron 4 mg disintegrat ing tablet 2021-05 00:00: 00 Yes [id number] 4mg Take 1 tablet by mouth every 8 (eight) hours as needed for Nausea and Vomiting (N/V). [facility] ketorolac 10 mg tablet 2021-05 00:00: 00 Yes [id number] 10mg Take 1 tablet by mouth every 6 (six) hours as needed for Pain (scale 7-10). [facility] proMETHazin e 25 mg tablet 2021-05 00:00: 00 Yes [id number] 25mg Take 1 tablet by mouth every 6 (six) hours as needed for N/V unresponsi ve to Ondansetro n. [facility] carvediloL 25 mg tablet 2021-05 00:00: 00 Yes [id number] 25mg Take 1 tablet by mouth in the morning and 1 tablet in the evening. Take with meals. [facility] ondansetron 4 mg disintegrat ing tablet 2021-05 00:00: 00 Yes [id number] 4mg Take 1 tablet by mouth every 8 (eight) hours as needed for Nausea and Vomiting (N/V). [facility] ketorolac 10 mg tablet 2021-05 00:00: 00 Yes [id number] 10mg Take 1 tablet by mouth every 6 (six) hours as needed for Pain (scale 7-10). [facility] proMETHazin e 25 mg tablet 2021-05 00:00: 00 Yes [id number] 25mg Take 1 tablet by mouth every 6 (six) hours as needed for N/V unresponsi ve to Ondansetro n. [facility] carvediloL 25 mg tablet 2021-05 00:00: 00 Yes [id number] 25mg Take 1 tablet by mouth in the morning and 1 tablet in the evening. Take with meals. [facility] ondansetron 4 mg disintegrat ing tablet 2021-05 00:00: 00 Yes [id number] 4mg Take 1 tablet by mouth every 8 (eight) hours as needed for Nausea and Vomiting (N/V). [facility] ketorolac 10 mg tablet 2021-05 00:00: 00 Yes [id number] 10mg Take 1 tablet by mouth every 6 (six) hours as needed for Pain (scale 7-10). [facility] proMETHazin e 25 mg tablet 2021-05 00:00: 00 Yes [id number] 25mg Take 1 tablet by mouth every 6 (six) hours as needed for N/V unresponsi ve to Ondansetro n. [facility] carvediloL 25 mg tablet 2021-05 00:00: 00 Yes [id number] 25mg Take 1 tablet by mouth in the morning and 1 tablet in the evening. Take with meals. [facility] ondansetron 4 mg disintegrat ing tablet 2021-05 00:00: 00 Yes [id number] 4mg Take 1 tablet by mouth every 8 (eight) hours as needed for Nausea and Vomiting (N/V). [facility] ketorolac 10 mg tablet 2021-05 00:00: 00 Yes [id number] 10mg Take 1 tablet by mouth every 6 (six) hours as needed for Pain (scale 7-10). [facility] proMETHazin e 25 mg tablet 2021-05 00:00: 00 Yes [id number] 25mg Take 1 tablet by mouth every 6 (six) hours as needed for N/V unresponsi ve to Ondansetro n. [facility] carvediloL 25 mg tablet 2021-05 00:00: 00 Yes [id number] 25mg Take 1 tablet by mouth in the morning and 1 tablet in the evening. Take with meals. [facility] ondansetron 4 mg disintegrat ing tablet 2021-05 00:00: 00 Yes [id number] 4mg Take 1 tablet by mouth every 8 (eight) hours as needed for Nausea and Vomiting (N/V). [facility] ketorolac 10 mg tablet 2021-05 00:00: 00 Yes [id number] 10mg Take 1 tablet by mouth every 6 (six) hours as needed for Pain (scale 7-10). [facility] proMETHazin e 25 mg tablet 2021-05 00:00: 00 Yes [id number] 25mg Take 1 tablet by mouth every 6 (six) hours as needed for N/V unresponsi ve to Ondansetro n. [facility] carvediloL 25 mg tablet 2021-05 00:00: 00 Yes [id number] 25mg Take 1 tablet by mouth in the morning and 1 tablet in the evening. Take with meals. [facility] ondansetron 4 mg disintegrat ing tablet 2021-05 00:00: 00 Yes [id number] 4mg Take 1 tablet by mouth every 8 (eight) hours as needed for Nausea and Vomiting (N/V). [facility] ketorolac 10 mg tablet 2021-05 00:00: 00 Yes [id number] 10mg Take 1 tablet by mouth every 6 (six) hours as needed for Pain (scale 7-10). [facility] proMETHazin e 25 mg tablet 2021-05 00:00: 00 Yes [id number] 25mg Take 1 tablet by mouth every 6 (six) hours as needed for N/V unresponsi ve to Ondansetro n. [facility] carvediloL 25 mg tablet 2021-05 00:00: 00 Yes [id number] 25mg Take 1 tablet by mouth in the morning and 1 tablet in the evening. Take with meals. [facility] ondansetron 4 mg disintegrat ing tablet 2021-05 00:00: 00 Yes [id number] 4mg Take 1 tablet by mouth every 8 (eight) hours as needed for Nausea and Vomiting (N/V). [facility] ketorolac 10 mg tablet 2021-05 00:00: 00 Yes [id number] 10mg Take 1 tablet by mouth every 6 (six) hours as needed for Pain (scale 7-10). [facility] proMETHazin e 25 mg tablet 2021-05 00:00: 00 Yes [id number] 25mg Take 1 tablet by mouth every 6 (six) hours as needed for N/V unresponsi ve to Ondansetro n. [facility] carvediloL 25 mg tablet 2021-05 00:00: 00 Yes [id number] 25mg Take 1 tablet by mouth in the morning and 1 tablet in the evening. Take with meals. [facility] carvediloL 25 mg tablet 2021-05 00:00: 00 Yes [id number] 25mg Take 1 tablet by mouth in the morning and 1 tablet in the evening. Take with meals. [facility] carvediloL 25 mg tablet 2021-05 00:00: 00 Yes [id number] 25mg Take 1 tablet by mouth in the morning and 1 tablet in the evening. Take with meals. [facility] carvediloL 25 mg tablet 2021-05 00:00: 00 Yes [id number] 25mg Take 1 tablet by mouth in the morning and 1 tablet in the evening. Take with meals. [facility] carvediloL 25 mg tablet 2021-05 00:00: 00 Yes [id number] 25mg Take 1 tablet by mouth in the morning and 1 tablet in the evening. Take with meals. [facility] carvediloL 25 mg tablet 2021-05 00:00: 00 Yes [id number] 25mg Take 1 tablet by mouth in the morning and 1 tablet in the evening. Take with meals. [facility] carvediloL 25 mg tablet 2021-05 00:00: 00 Yes [id number] 25mg Take 1 tablet by mouth in the morning and 1 tablet in the evening. Take with meals. [facility] carvediloL 25 mg tablet 2021-05 00:00: 00 Yes [id number] 25mg Take 1 tablet by mouth in the morning and 1 tablet in the evening. Take with meals. [facility] carvediloL 25 mg tablet 2021-05 00:00: 00 Yes [id number] 25mg Take 1 tablet by mouth in the morning and 1 tablet in the evening. Take with meals. [facility] carvediloL 25 mg tablet 2021-05 00:00: 00 Yes [id number] 25mg Take 1 tablet by mouth in the morning and 1 tablet in the evening. Take with meals. [facility] carvediloL 25 mg tablet 2021-05 00:00: 00 Yes [id number] 25mg Take 1 tablet by mouth in the morning and 1 tablet in the evening. Take with meals. [facility] carvediloL 25 mg tablet 2021-05 00:00: 00 Yes [id number] 25mg Take 1 tablet by mouth in the morning and 1 tablet in the evening. Take with meals. [facility] carvediloL 25 mg tablet 2021-05 00:00: 00 Yes [id number] 25mg Take 1 tablet by mouth in the morning and 1 tablet in the evening. Take with meals. [facility] carvediloL 25 mg tablet 2021-05 00:00: 00 Yes [id number] 25mg Take 1 tablet by mouth in the morning and 1 tablet in the evening. Take with meals. [facility] carvediloL 25 mg tablet 2021-05 00:00: 00 Yes [id number] 25mg Take 1 tablet by mouth in the morning and 1 tablet in the evening. Take with meals. [facility] carvediloL 25 mg tablet 2021-05 00:00: 00 Yes [id number] 25mg Take 1 tablet by mouth in the morning and 1 tablet in the evening. Take with meals. [facility] carvediloL 25 mg tablet 2021-05 00:00: 00 Yes [id number] 25mg Take 1 tablet by mouth in the morning and 1 tablet in the evening. Take with meals. [facility] carvediloL 25 mg tablet 2021-05 00:00: 00 Yes [id number] 25mg Take 1 tablet by mouth in the morning and 1 tablet in the evening. Take with meals. [facility] carvediloL 25 mg tablet 2021-05 00:00: 00 Yes [id number] 25mg Take 1 tablet by mouth in the morning and 1 tablet in the evening. Take with meals. [facility] carvediloL 25 mg tablet 2021-05 00:00: 00 Yes [id number] 25mg Take 1 tablet by mouth in the morning and 1 tablet in the evening. Take with meals. [facility] carvediloL 25 mg tablet 2021-05 00:00: 00 Yes [id number] 25mg Take 1 tablet by mouth in the morning and 1 tablet in the evening. Take with meals. [facility] carvediloL 25 mg tablet 2021-05 00:00: 00 Yes [id number] 25mg Take 1 tablet by mouth in the morning and 1 tablet in the evening. Take with meals. [facility] carvediloL 25 mg tablet 2021-05 00:00: 00 09-05 00:00 :00 No [id number] 25mg Take 1 tablet by mouth in the morning and 1 tablet in the evening. Take with meals. [facility] carvediloL 25 mg tablet 2021-05 00:00: 00 09-05 00:00 :00 No [id number] 25mg Take 1 tablet by mouth in the morning and 1 tablet in the evening. Take with meals. [facility] ondansetron 4 mg disintegrat ing tablet 2021-05 00:00: 00 04-07 00:00 :00 No [id number] 4mg Take 1 tablet by mouth every 8 (eight) hours as needed for Nausea and Vomiting (N/V). [facility] ketorolac 10 mg tablet 2021-05 00:00: 00 04-07 00:00 :00 No [id number] 10mg Take 1 tablet by mouth every 6 (six) hours as needed for Pain (scale 7-10). [facility] proMETHazin e 25 mg tablet 2021-05 00:00: 00 04-07 00:00 :00 No [id number] 25mg Take 1 tablet by mouth every 6 (six) hours as needed for N/V unresponsi ve to Ondansetro n. [facility] cephALEXin 500 mg capsule 2021-05 00:00: 00 03-19 05:59 :00 No [id number] 500mg Take 1 capsule by mouth 4 (four) times daily for 3 days. [facility] cephALEXin 500 mg capsule 2021-05 00:00: 00 03-19 05:59 :00 No [id number] 500mg Take 1 capsule by mouth 4 (four) times daily for 3 days. [facility] cephALEXin 500 mg capsule 2021-05 00:00: 00 03-19 05:59 :00 No [id number] 500mg Take 1 capsule by mouth 4 (four) times daily for 3 days. [facility] predniSONE 20 mg tablet 2021-05 00:00: 00 03-15 04:59 :00 No [id number] 20mg Take 1 tablet by mouth in the morning for 2 days. [facility] methocarbam oL (ROBAXIN) tablet 500 mg 2021-05 16:45: 00 03-11 17:08 :00 No 500mg 500 mg, Oral, ONCE, 1 dose, On 03/11/22 at 1200, [place] [facility] dexamethaso ne sod phos PF injection 10 mg 2021-05 16:00: 00 03-11 16:00 :00 No 10mg 10 mg, Slow IV Push, ONCE, 1 dose, On 03/11/22 at 1100, 1 mL [facility] diphenhydrA MINE (BENADRYL) injection 25 mg 2021-05 15:46: 00 03-11 16:00 :00 No 25mg 25 mg, Slow IV Push, ONCE, 1 dose, On 03/11/22 at 1100, STAT [facility] NaCl 0.9% (NS) IV infusion 1,000 mL 2021-05 15:45: 00 03-11 16:04 :00 No 1000mL at 999 mL/hr, Intravenou s, ONCE, 1 dose, On 03/11/22 at 1045, Routine [facility] butalbital- acetaminoph en-caff (ESGIC) 50-325-40 mg tablet 1 tablet 2021-05 15:00: 00 03-11 15:05 :00 No 1{tbl} 1 tablet, Oral, ONCE, 1 dose, On 03/11/22 at 1015, [place] [facility] ketorolac (TORADOL) injection 15 mg 2021-05 14:45: 00 03-11 15:05 :00 No 15mg 15 mg, Slow IV Push, ONCE, [facility], [facility] 12.5 mg in NaCl 0.9% (NS) 50 mL IV piggyback 2021-05 14:45: 00 03-11 15:04 :00 No 12.5mg 12.5 mg, IV Piggyback, ONCE, 1 dose, [facility] 03/11/22 at 0945[facility]ETHaz[facility] tablet 2021-05 00:00: 00 Yes [id number] 25mg Take 1 tablet by mouth every 6 (six) hours as needed for Nausea and Vomiting (N/V). [facility] methocarbam oL 500 mg tablet 2021-05 00:00: 00 Yes [id number] 500mg Take 1 tablet by mouth 3 (three) times daily as needed for Pain (scale 7-10). [facility] proMETHazin e 25 mg tablet 2021-05 00:00: 00 Yes [id number] 25mg Take 1 tablet by mouth every 6 (six) hours as needed for Nausea and Vomiting (N/V). [facility] methocarbam oL 500 mg tablet 2021-05 00:00: 00 Yes [id number] 500mg Take 1 tablet by mouth 3 (three) times daily as needed for Pain (scale 7-10). [facility] proMETHazin e 25 mg tablet 2021-05 00:00: 00 Yes [id number] 25mg Take 1 tablet by mouth every 6 (six) hours as needed for Nausea and Vomiting (N/V). [facility] methocarbam oL 500 mg tablet 2021-05 0 00:00: 00 Yes [id number] 500mg Take 1 tablet by mouth 3 (three) times daily as needed for Pain (scale 7-10). [facility] proMETHazin e 25 mg tablet 2021-05 0 00:00: 00 Yes [id number] 25mg Take 1 tablet by mouth every 6 (six) hours as needed for Nausea and Vomiting (N/V). [facility] methocarbam oL 500 mg tablet 2021-05 0 00:00: 00 Yes [id number] 500mg Take 1 tablet by mouth 3 (three) times daily as needed for Pain (scale 7-10). [facility] proMETHazin e 25 mg tablet 2021-05 0 00:00: 00 Yes [id number] 25mg Take 1 tablet by mouth every 6 (six) hours as needed for Nausea and Vomiting (N/V). [facility] methocarbam oL 500 mg tablet 2021-05 0 00:00: 00 Yes [id number] 500mg Take 1 tablet by mouth 3 (three) times daily as needed for Pain (scale 7-10). [facility] proMETHazin e 25 mg tablet 2021-05 0 00:00: 00 Yes [id number] 25mg Take 1 tablet by mouth every 6 (six) hours as needed for Nausea and Vomiting (N/V). [facility] methocarbam oL 500 mg tablet 2021-05 0 00:00: 00 Yes [id number] 500mg Take 1 tablet by mouth 3 (three) times daily as needed for Pain (scale 7-10). [facility] proMETHazin e 25 mg tablet 2021-05 0 00:00: 00 Yes [id number] 25mg Take 1 tablet by mouth every 6 (six) hours as needed for Nausea and Vomiting (N/V). [facility] methocarbam oL 500 mg tablet 2021-05 0-30 00:00: 00 Yes [id number] 500mg Take 1 tablet by mouth 3 (three) times daily as needed for Pain (scale 7-10). [facility] proMETHazin e 25 mg tablet 2021-05 0 00:00: 00 Yes [id number] 25mg Take 1 tablet by mouth every 6 (six) hours as needed for Nausea and Vomiting (N/V). [facility] methocarbam oL 500 mg tablet 2021-05 0 00:00: 00 Yes [id number] 500mg Take 1 tablet by mouth 3 (three) times daily as needed for Pain (scale 7-10). [facility] proMETHazin e 25 mg tablet 2021-05 0 00:00: 00 Yes [id number] 25mg Take 1 tablet by mouth every 6 (six) hours as needed for Nausea and Vomiting (N/V). [facility] methocarbam oL 500 mg tablet 2021-05 0 00:00: 00 Yes [id number] 500mg Take 1 tablet by mouth 3 (three) times daily as needed for Pain (scale 7-10). [facility] proMETHazin e 25 mg tablet 2021-05 0 00:00: 00 Yes [id number] 25mg Take 1 tablet by mouth every 6 (six) hours as needed for Nausea and Vomiting (N/V). [facility] methocarbam oL 500 mg tablet 2021-05 0 00:00: 00 Yes [id number] 500mg Take 1 tablet by mouth 3 (three) times daily as needed for Pain (scale 7-10). [facility] proMETHazin e 25 mg tablet 2021-05 0 00:00: 00 Yes [id number] 25mg Take 1 tablet by mouth every 6 (six) hours as needed for Nausea and Vomiting (N/V). [facility] methocarbam oL 500 mg tablet 2021-05 030 00:00: 00 Yes [id number] 500mg Take 1 tablet by mouth 3 (three) times daily as needed for Pain (scale 7-10). [facility] proMETHazin e 25 mg tablet 2021-05 0 00:00: 00 Yes [id number] 25mg Take 1 tablet by mouth every 6 (six) hours as needed for Nausea and Vomiting (N/V). [facility] proMETHazin e 25 mg tablet 2021-05 030 00:00: 00 Yes [id number] 25mg Take 1 tablet by mouth every 6 (six) hours as needed for Nausea and Vomiting (N/V). [facility] proMETHazin e 25 mg tablet 2021-05 030 00:00: 00 Yes [id number] 25mg Take 1 tablet by mouth every 6 (six) hours as needed for Nausea and Vomiting (N/V). [facility] proMETHazin e 25 mg tablet 2021-05 0 00:00: 00 Yes [id number] 25mg Take 1 tablet by mouth every 6 (six) hours as needed for Nausea and Vomiting (N/V). [facility] proMETHazin e 25 mg tablet 2021-05 0 00:00: 00 Yes [id number] 25mg Take 1 tablet by mouth every 6 (six) hours as needed for Nausea and Vomiting (N/V). [facility] proMETHazin e 25 mg tablet 2021-05 0 00:00: 00 Yes [id number] 25mg Take 1 tablet by mouth every 6 (six) hours as needed for Nausea and Vomiting (N/V). [facility] proMETHazin e 25 mg tablet 2021-05 030 00:00: 00 Yes [id number] 25mg Take 1 tablet by mouth every 6 (six) hours as needed for Nausea and Vomiting (N/V). [facility] proMETHazin e 25 mg tablet 2021-05 030 00:00: 00 Yes [id number] 25mg Take 1 tablet by mouth every 6 (six) hours as needed for Nausea and Vomiting (N/V). [facility] proMETHazin e 25 mg tablet 2021-05 0-30 00:00: 00 Yes [id number] 25mg Take 1 tablet by mouth every 6 (six) hours as needed for Nausea and Vomiting (N/V). [facility] proMETHazin e 25 mg tablet 2021-05 030 00:00: 00 Yes [id number] 25mg Take 1 tablet by mouth every 6 (six) hours as needed for Nausea and Vomiting (N/V). [facility] proMETHazin e 25 mg tablet 2021-05 0-30 00:00: 00 Yes [id number] 25mg Take 1 tablet by mouth every 6 (six) hours as needed for Nausea and Vomiting (N/V). [facility] proMETHazin e 25 mg tablet 2021-05 0 00:00: 00 Yes [id number] 25mg Take 1 tablet by mouth every 6 (six) hours as needed for Nausea and Vomiting (N/V). [facility] proMETHazin e 25 mg tablet 2021-05 0 00:00: 00 Yes [id number] 25mg Take 1 tablet by mouth every 6 (six) hours as needed for Nausea and Vomiting (N/V). [facility] proMETHazin e 25 mg tablet 2021-05 0 00:00: 00 Yes [id number] 25mg Take 1 tablet by mouth every 6 (six) hours as needed for Nausea and Vomiting (N/V). [facility] proMETHazin e 25 mg tablet 2021-05 0 00:00: 00 Yes [id number] 25mg Take 1 tablet by mouth every 6 (six) hours as needed for Nausea and Vomiting (N/V). [facility] proMETHazin e 25 mg tablet 2021-05 0 00:00: 00 Yes [id number] 25mg Take 1 tablet by mouth every 6 (six) hours as needed for Nausea and Vomiting (N/V). [facility] proMETHazin e 25 mg tablet 2021-05 030 00:00: 00 Yes [id number] 25mg Take 1 tablet by mouth every 6 (six) hours as needed for Nausea and Vomiting (N/V). [facility] proMETHazin e 25 mg tablet 2021-05 0 00:00: 00 07-31 00:00 :00 No [id number] 25mg Take 1 tablet by mouth every 6 (six) hours as needed for Nausea and Vomiting (N/V). [facility] methocarbam oL 500 mg tablet 2021-05 0-30 00:00: 00 04-07 00:00 :00 No [id number] 500mg Take 1 tablet by mouth 3 (three) times daily as needed for Pain (scale 7-10). [facility] topiramate 25 mg tablet 2021-05 0-21 00:00: 00 Yes [id number] 100mg Take 4 tablets by mouth in the morning. [facility] topiramate 25 mg tablet 2021- 0-21 00:00: 00 Yes [id number] 100mg Take 4 tablets by mouth in the morning. [facility] topiramate 25 mg tablet 2021- 0- 00:00: 00 Yes [id number] 100mg Take 4 tablets by mouth in the morning. [facility] topiramate 25 mg tablet 2021- 0 00:00: 00 Yes [id number] 100mg Take 4 tablets by mouth in the morning. [facility] topiramate 25 mg tablet 2021- 0 00:00: 00 Yes [id number] 100mg Take 4 tablets by mouth in the morning. [facility] topiramate 25 mg tablet 2021- 0 00:00: 00 Yes [id number] 100mg Take 4 tablets by mouth in the morning. [facility] topiramate 25 mg tablet 2021- 0 00:00: 00 Yes [id number] 100mg Take 4 tablets by mouth in the morning. [facility] topiramate 25 mg tablet 2021- 0- 00:00: 00 Yes [id number] 100mg Take 4 tablets by mouth in the morning. [facility] topiramate 25 mg tablet 2021-1 0- 00:00: 00 Yes [id number] 100mg Take 4 tablets by mouth in the morning. [facility] topiramate 25 mg tablet 2021- 0- 00:00: 00 Yes [id number] 100mg Take 4 tablets by mouth in the morning. [facility] topiramate 25 mg tablet 2021-1 0-21 00:00: 00 Yes [id number] 100mg Take 4 tablets by mouth in the morning. [facility] topiramate 25 mg tablet 2021-1 021 00:00: 00 Yes [id number] 100mg Take 4 tablets by mouth in the morning. [facility] topiramate 25 mg tablet 2021-1 0 00:00: 00 Yes [id number] 100mg Take 4 tablets by mouth in the morning. [facility] topiramate 25 mg tablet 2-1 0- 00:00: 00 Yes [id number] 100mg Take 4 tablets by mouth in the morning. [facility] topiramate 25 mg tablet 2021-1 0 00:00: 00 Yes [id number] 100mg Take 4 tablets by mouth in the morning. [facility] topiramate 25 mg tablet 2021-1 0 00:00: 00 Yes [id number] 100mg Take 4 tablets by mouth in the morning. [facility] topiramate 25 mg tablet 2-1 0 00:00: 00 Yes [id number] 100mg Take 4 tablets by mouth in the morning. [facility] topiramate 25 mg tablet 2021-1 0 00:00: 00 Yes [id number] 100mg Take 4 tablets by mouth in the morning. [facility] topiramate 25 mg tablet 2021-1 0 00:00: 00 Yes [id number] 100mg Take 4 tablets by mouth in the morning. [facility] topiramate 25 mg tablet 2-1 0 00:00: 00 Yes [id number] 100mg Take 4 tablets by mouth in the morning. [facility] topiramate 25 mg tablet 2021-1 0 00:00: 00 Yes [id number] 100mg Take 4 tablets by mouth in the morning. [facility] topiramate 25 mg tablet 2-1 0- 00:00: 00 Yes [id number] 100mg Take 4 tablets by mouth in the morning. [facility] topiramate 25 mg tablet 2-1 0-21 00:00: 00 Yes [id number] 100mg Take 4 tablets by mouth in the morning. [facility] topiramate 25 mg tablet 2-1 0-21 00:00: 00 Yes [id number] 100mg Take 4 tablets by mouth in the morning. [facility] topiramate 25 mg tablet 2021-1 0- 00:00: 00 Yes [id number] 100mg Take 4 tablets by mouth in the morning. [facility] topiramate 25 mg tablet 2021-1 0- 00:00: 00 Yes [id number] 100mg Take 4 tablets by mouth in the morning. [facility] topiramate 25 mg tablet 2021-1 0 00:00: 00 Yes [id number] 100mg Take 4 tablets by mouth in the morning. [facility] topiramate 25 mg tablet 2021-1 0 00:00: 00 Yes [id number] 100mg Take 4 tablets by mouth in the morning. [facility] topiramate 25 mg tablet 2021-1 0 00:00: 00 Yes [id number] 100mg Take 4 tablets by mouth in the morning. [facility] topiramate 25 mg tablet 2021-1 0 00:00: 00 Yes [id number] 100mg Take 4 tablets by mouth in the morning. [facility] topiramate 25 mg tablet 2021-1 0 00:00: 00 Yes [id number] 100mg Take 4 tablets by mouth in the morning. [facility] topiramate 25 mg tablet 2021-1 0 00:00: 00 Yes [id number] 100mg Take 4 tablets by mouth in the morning. [facility] topiramate 25 mg tablet 2021-1 0 00:00: 00 Yes [id number] 100mg Take 4 tablets by mouth in the morning. [facility] topiramate 25 mg tablet 2-1 0 00:00: 00 Yes [id number] 100mg Take 4 tablets by mouth in the morning. [facility] topiramate 25 mg tablet 2021-1 0- 00:00: 00 Yes [id number] 100mg Take 4 tablets by mouth in the morning. [facility] topiramate 25 mg tablet 2-1 0- 00:00: 00 Yes [id number] 100mg Take 4 tablets by mouth in the morning. [facility] topiramate 25 mg tablet 2021-1 021 00:00: 00 Yes [id number] 100mg Take 4 tablets by mouth in the morning. [facility] topiramate 25 mg tablet 2021-1 0 00:00: 00 Yes [id number] 100mg Take 4 tablets by mouth in the morning. [facility] topiramate 25 mg tablet 2-1 0- 00:00: 00 Yes [id number] 100mg Take 4 tablets by mouth in the morning. [facility] topiramate 25 mg tablet 2021-1 0 00:00: 00 Yes [id number] 100mg Take 4 tablets by mouth in the morning. [facility] topiramate 25 mg tablet 2021-1 0 00:00: 00 Yes [id number] 100mg Take 4 tablets by mouth in the morning. [facility] topiramate 25 mg tablet 2-1 0 00:00: 00 Yes [id number] 100mg Take 4 tablets by mouth in the morning. [facility] topiramate 25 mg tablet 2021-1 0 00:00: 00 Yes [id number] 100mg Take 4 tablets by mouth in the morning. [facility] topiramate 25 mg tablet 2021-1 0 00:00: 00 Yes [id number] 100mg Take 4 tablets by mouth in the morning. [facility] topiramate 25 mg tablet 2-1 0 00:00: 00 Yes [id number] 100mg Take 4 tablets by mouth in the morning. [facility] topiramate 25 mg tablet 2021-1 0 00:00: 00 Yes [id number] 100mg Take 4 tablets by mouth in the morning. [facility] topiramate 25 mg tablet 2-1 0- 00:00: 00 Yes [id number] 100mg Take 4 tablets by mouth in the morning. [facility] topiramate 25 mg tablet 2-1 0-21 00:00: 00 Yes [id number] 100mg Take 4 tablets by mouth in the morning. [facility] topiramate 25 mg tablet 2-1 0-21 00:00: 00 Yes [id number] 100mg Take 4 tablets by mouth in the morning. [facility] topiramate 25 mg tablet 2021-05 0- 00:00: 00 Yes [id number] 100mg Take 4 tablets by mouth in the morning. [facility] diphenhydrA MINE 25 mg capsule 2021-05 0-18 09:39: 59 02-27 00:00 :00 No 25mg Take 25 mg by mouth every 6 (six) hours as needed for Allergies. [facility] diphenhydrA MINE 25 mg capsule 2021-05 018 09:39: 59 02-27 00:00 :00 No 25mg Take 25 mg by mouth every 6 (six) hours as needed for Allergies. [facility] diphenhydrA MINE 25 mg capsule 2021-05 018 09:39: 59 02-27 00:00 :00 No 25mg Take 25 mg by mouth every 6 (six) hours as needed for Allergies. [facility] diphenhydrA MINE 25 mg capsule 2021-05 018 09:39: 59 02-27 00:00 :00 No 25mg Take 25 mg by mouth every 6 (six) hours as needed for Allergies. [facility] diphenhydrA MINE 25 mg capsule 2021-05 018 09:39: 59 02-27 00:00 :00 No 25mg Take 25 mg by mouth every 6 (six) hours as needed for Allergies. [facility] citalopram hydrobromid e (CITALOPRAM ORAL) 2021-05 018 09:39: 49 02-27 00:00 :00 No Take by mouth. [facility] citalopram hydrobromid e (CITALOPRAM ORAL) 2021-05 0-18 09:39: 49 02-27 00:00 :00 No Take by mouth. [facility] citalopram hydrobromid e (CITALOPRAM ORAL) 2021-05 018 09:39: 49 02-27 00:00 :00 No Take by mouth. [facility] citalopram hydrobromid e (CITALOPRAM ORAL) 2021-05 018 09:39: 49 02-27 00:00 :00 No Take by mouth. [facility] carbamazepi ne (TEGRETOL ORAL) 2021-05 0-18 09:39: 28 02-27 00:00 :00 No Take by mouth. [facility] carbamazepi ne (TEGRETOL ORAL) 2021-05 018 09:39: 28 02-27 00:00 :00 No Take by mouth. [facility] carbamazepi ne (TEGRETOL ORAL) 2021-05 0 09:39: 28 02-27 00:00 :00 No Take by mouth. [facility] carbamazepi ne (TEGRETOL ORAL) 2021-05 0 09:39: 28 02-27 00:00 :00 No Take by mouth. [facility] albuterol 90 mcg/actuati on inhaler 2021-05 00:00: 00 Yes [id number] 2{puff} Inhale 2 Puffs every 6 (six) hours as needed for Wheezing or Shortness of Breath. [facility] albuterol 90 mcg/actuati on inhaler 2021-05 00:00: 00 Yes [id number] 2{puff} Inhale 2 Puffs every 6 (six) hours as needed for Wheezing or Shortness of Breath. [facility] albuterol 90 mcg/actuati on inhaler 2021-05 0 00:00: 00 Yes [id number] 2{puff} Inhale 2 Puffs every 6 (six) hours as needed for Wheezing or Shortness of Breath. [facility] albuterol 90 mcg/actuati on inhaler 2021-05 018 00:00: 00 Yes [id number] 2{puff} Inhale 2 Puffs every 6 (six) hours as needed for Wheezing or Shortness of Breath. [facility] albuterol 90 mcg/actuati on inhaler 2021-05 0 00:00: 00 Yes [id number] 2{puff} Inhale 2 Puffs every 6 (six) hours as needed for Wheezing or Shortness of Breath. [facility] albuterol 90 mcg/actuati on inhaler 2021-05 018 00:00: 00 Yes [id number] 2{puff} Inhale 2 Puffs every 6 (six) hours as needed for Wheezing or Shortness of Breath. [facility] albuterol 90 mcg/actuati on inhaler 2021-05 018 00:00: 00 Yes [id number] 2{puff} Inhale 2 Puffs every 6 (six) hours as needed for Wheezing or Shortness of Breath. [facility] albuterol 90 mcg/actuati on inhaler 2021-05 018 00:00: 00 Yes [id number] 2{puff} Inhale 2 Puffs every 6 (six) hours as needed for Wheezing or Shortness of Breath. [facility] albuterol 90 mcg/actuati on inhaler 2021-05 018 00:00: 00 Yes [id number] 2{puff} Inhale 2 Puffs every 6 (six) hours as needed for Wheezing or Shortness of Breath. [facility] albuterol 90 mcg/actuati on inhaler 2021-05 018 00:00: 00 Yes [id number] 2{puff} Inhale 2 Puffs every 6 (six) hours as needed for Wheezing or Shortness of Breath. [facility] albuterol 90 mcg/actuati on inhaler 2021-05 018 00:00: 00 Yes [id number] 2{puff} Inhale 2 Puffs every 6 (six) hours as needed for Wheezing or Shortness of Breath. [facility] albuterol 90 mcg/actuati on inhaler 2021-05 0-18 00:00: 00 Yes [id number] 2{puff} Inhale 2 Puffs every 6 (six) hours as needed for Wheezing or Shortness of Breath. [facility] albuterol 90 mcg/actuati on inhaler 2021-05 018 00:00: 00 Yes [id number] 2{puff} Inhale 2 Puffs every 6 (six) hours as needed for Wheezing or Shortness of Breath. [facility] albuterol 90 mcg/actuati on inhaler 2021-05 018 00:00: 00 Yes [id number] 2{puff} Inhale 2 Puffs every 6 (six) hours as needed for Wheezing or Shortness of Breath. [facility] albuterol 90 mcg/actuati on inhaler 2021-05 018 00:00: 00 Yes [id number] 2{puff} Inhale 2 Puffs every 6 (six) hours as needed for Wheezing or Shortness of Breath. [facility] albuterol 90 mcg/actuati on inhaler 2021-05 018 00:00: 00 Yes [id number] 2{puff} Inhale 2 Puffs every 6 (six) hours as needed for Wheezing or Shortness of Breath. [facility] albuterol 90 mcg/actuati on inhaler 2021-05 0 00:00: 00 Yes [id number] 2{puff} Inhale 2 Puffs every 6 (six) hours as needed for Wheezing or Shortness of Breath. [facility] albuterol 90 mcg/actuati on inhaler 2021-05 018 00:00: 00 Yes [id number] 2{puff} Inhale 2 Puffs every 6 (six) hours as needed for Wheezing or Shortness of Breath. [facility] albuterol 90 mcg/actuati on inhaler 2021-05 018 00:00: 00 Yes [id number] 2{puff} Inhale 2 Puffs every 6 (six) hours as needed for Wheezing or Shortness of Breath. [facility] albuterol 90 mcg/actuati on inhaler 2021-05 018 00:00: 00 Yes [id number] 2{puff} Inhale 2 Puffs every 6 (six) hours as needed for Wheezing or Shortness of Breath. [facility] albuterol 90 mcg/actuati on inhaler 2021-05 018 00:00: 00 Yes [id number] 2{puff} Inhale 2 Puffs every 6 (six) hours as needed for Wheezing or Shortness of Breath. [facility] albuterol 90 mcg/actuati on inhaler 2021-05 018 00:00: 00 Yes [id number] 2{puff} Inhale 2 Puffs every 6 (six) hours as needed for Wheezing or Shortness of Breath. [facility] albuterol 90 mcg/actuati on inhaler 2021-05 018 00:00: 00 Yes [id number] 2{puff} Inhale 2 Puffs every 6 (six) hours as needed for Wheezing or Shortness of Breath. [facility] albuterol 90 mcg/actuati on inhaler 2021-05 018 00:00: 00 Yes [id number] 2{puff} Inhale 2 Puffs every 6 (six) hours as needed for Wheezing or Shortness of Breath. [facility] albuterol 90 mcg/actuati on inhaler 2021-05 018 00:00: 00 Yes [id number] 2{puff} Inhale 2 Puffs every 6 (six) hours as needed for Wheezing or Shortness of Breath. [facility] albuterol 90 mcg/actuati on inhaler 2021-05 018 00:00: 00 Yes [id number] 2{puff} Inhale 2 Puffs every 6 (six) hours as needed for Wheezing or Shortness of Breath. [facility] albuterol 90 mcg/actuati on inhaler 2021-05 018 00:00: 00 Yes [id number] 2{puff} Inhale 2 Puffs every 6 (six) hours as needed for Wheezing or Shortness of Breath. [facility] albuterol 90 mcg/actuati on inhaler 2021-05 018 00:00: 00 Yes [id number] 2{puff} Inhale 2 Puffs every 6 (six) hours as needed for Wheezing or Shortness of Breath. [facility] albuterol 90 mcg/actuati on inhaler 2021-05 018 00:00: 00 Yes [id number] 2{puff} Inhale 2 Puffs every 6 (six) hours as needed for Wheezing or Shortness of Breath. [facility] albuterol 90 mcg/actuati on inhaler 2021-05 0-18 00:00: 00 Yes [id number] 2{puff} Inhale 2 Puffs every 6 (six) hours as needed for Wheezing or Shortness of Breath. [facility] albuterol 90 mcg/actuati on inhaler 2021-05 0-18 00:00: 00 Yes [id number] 2{puff} Inhale 2 Puffs every 6 (six) hours as needed for Wheezing or Shortness of Breath. [facility] albuterol 90 mcg/actuati on inhaler 2021-05 0-18 00:00: 00 Yes [id number] 2{puff} Inhale 2 Puffs every 6 (six) hours as needed for Wheezing or Shortness of Breath. [facility] albuterol 90 mcg/actuati on inhaler 2021-05 0-18 00:00: 00 Yes [id number] 2{puff} Inhale 2 Puffs every 6 (six) hours as needed for Wheezing or Shortness of Breath. [facility] albuterol 90 mcg/actuati on inhaler 2021-05 0-18 00:00: 00 Yes [id number] 2{puff} Inhale 2 Puffs every 6 (six) hours as needed for Wheezing or Shortness of Breath. [facility] albuterol 90 mcg/actuati on inhaler 2021-05 0-18 00:00: 00 Yes [id number] 2{puff} Inhale 2 Puffs every 6 (six) hours as needed for Wheezing or Shortness of Breath. [facility] albuterol 90 mcg/actuati on inhaler 2021-05 0-18 00:00: 00 Yes [id number] 2{puff} Inhale 2 Puffs every 6 (six) hours as needed for Wheezing or Shortness of Breath. [facility] albuterol 90 mcg/actuati on inhaler 2021-05 0-18 00:00: 00 Yes [id number] 2{puff} Inhale 2 Puffs every 6 (six) hours as needed for Wheezing or Shortness of Breath. [facility] albuterol 90 mcg/actuati on inhaler 2021-05 0-18 00:00: 00 Yes [id number] 2{puff} Inhale 2 Puffs every 6 (six) hours as needed for Wheezing or Shortness of Breath. [facility] albuterol 90 mcg/actuati on inhaler 2021-05 018 00:00: 00 Yes [id number] 2{puff} Inhale 2 Puffs every 6 (six) hours as needed for Wheezing or Shortness of Breath. [facility] albuterol 90 mcg/actuati on inhaler 2021-05 0 00:00: 00 Yes [id number] 2{puff} Inhale 2 Puffs every 6 (six) hours as needed for Wheezing or Shortness of Breath. [facility] albuterol 90 mcg/actuati on inhaler 2021-05 0 00:00: 00 Yes [id number] 2{puff} Inhale 2 Puffs every 6 (six) hours as needed for Wheezing or Shortness of Breath. [facility] albuterol 90 mcg/actuati on inhaler 2021-05 0 00:00: 00 Yes [id number] 2{puff} Inhale 2 Puffs every 6 (six) hours as needed for Wheezing or Shortness of Breath. [facility] albuterol 90 mcg/actuati on inhaler 2021-05 0 00:00: 00 Yes [id number] 2{puff} Inhale 2 Puffs every 6 (six) hours as needed for Wheezing or Shortness of Breath. [facility] albuterol 90 mcg/actuati on inhaler 2021-05 018 00:00: 00 Yes [id number] 2{puff} Inhale 2 Puffs every 6 (six) hours as needed for Wheezing or Shortness of Breath. [facility] albuterol 90 mcg/actuati on inhaler 2021-05 018 00:00: 00 Yes [id number] 2{puff} Inhale 2 Puffs every 6 (six) hours as needed for Wheezing or Shortness of Breath. [facility] albuterol 90 mcg/actuati on inhaler 2021-05 018 00:00: 00 Yes [id number] 2{puff} Inhale 2 Puffs every 6 (six) hours as needed for Wheezing or Shortness of Breath. [facility] albuterol 90 mcg/actuati on inhaler 2021-05 018 00:00: 00 Yes [id number] 2{puff} Inhale 2 Puffs every 6 (six) hours as needed for Wheezing or Shortness of Breath. [facility] albuterol 90 mcg/actuati on inhaler 2021-05 018 00:00: 00 Yes [id number] 2{puff} Inhale 2 Puffs every 6 (six) hours as needed for Wheezing or Shortness of Breath. [facility] albuterol 90 mcg/actuati on inhaler 2021-05 018 00:00: 00 Yes [id number] 2{puff} Inhale 2 Puffs every 6 (six) hours as needed for Wheezing or Shortness of Breath. [facility] albuterol 90 mcg/actuati on inhaler 2021-05 018 00:00: 00 Yes [id number] 2{puff} Inhale 2 Puffs every 6 (six) hours as needed for Wheezing or Shortness of Breath. [facility] albuterol 90 mcg/actuati on inhaler 2021-05 018 00:00: 00 Yes [id number] 2{puff} Inhale 2 Puffs every 6 (six) hours as needed for Wheezing or Shortness of Breath. [facility] albuterol 90 mcg/actuati on inhaler 2021-05 018 00:00: 00 Yes [id number] 2{puff} Inhale 2 Puffs every 6 (six) hours as needed for Wheezing or Shortness of Breath. [facility] albuterol 90 mcg/actuati on inhaler 2021-05 0-18 00:00: 00 Yes [id number] 2{puff} Inhale 2 Puffs every 6 (six) hours as needed for Wheezing or Shortness of Breath. [facility] albuterol 90 mcg/actuati on inhaler 2021-05 018 00:00: 00 Yes [id number] 2{puff} Inhale 2 Puffs every 6 (six) hours as needed for Wheezing or Shortness of Breath. [facility] albuterol 90 mcg/actuati on inhaler 2021-05 018 00:00: 00 Yes [id number] 2{puff} Inhale 2 Puffs every 6 (six) hours as needed for Wheezing or Shortness of Breath. [facility] albuterol 90 mcg/actuati on inhaler 2021-0518 00:00: 00 Yes [id number] 2{puff} Inhale 2 Puffs every 6 (six) hours as needed for Wheezing or Shortness of Breath. [facility] SUMAtriptan 50 mg tablet 2021-05 00:00: 00 03-21 00:00 :00 No 50mg Take 50 mg by mouth as needed for Migraine. Take one tablet at onset of migraine, may take another tablet 2 hours after initial dose if no relief with first dose. DO NOT EXCEED 100mg in a 24 hour period. [facility] benzonatate 200 mg capsule 2021-05 00:00: 00 03-07 04:59 :00 No [id number] 200mg Take 1 capsule by mouth 3 (three) times daily as needed for Cough for up to 7 days. [facility] benzonatate 200 mg capsule 2021-05 00:00: 00 03-07 04:59 :00 No [id number] 200mg Take 1 capsule by mouth 3 (three) times daily as needed for Cough for up to 7 days. [facility] benzonatate 200 mg capsule 2021-0518 00:00: 00 03-07 04:59 :00 No [id number] 200mg Take 1 capsule by mouth 3 (three) times daily as needed for Cough for up to 7 days. [facility] benzonatate 200 mg capsule 2021-05 018 00:00: 00 03-07 04:59 :00 No [id number] 200mg Take 1 capsule by mouth 3 (three) times daily as needed for Cough for up to 7 days. [facility] benzonatate 200 mg capsule 2021-0518 00:00: 00 03-07 04:59 :00 No [id number] 200mg Take 1 capsule by mouth 3 (three) times daily as needed for Cough for up to 7 days. [facility] benzonatate 200 mg capsule 2021-05 00:00: 00 03-07 04:59 :00 No [id number] 200mg Take 1 capsule by mouth 3 (three) times daily as needed for Cough for up to 7 days. [facility] SUMAtriptan 50 mg tablet 2021-05 00:00: 00 02-28 04:59 :00 No [id number] 50mg Take 1 tablet by mouth once now for 1 dose. [facility] SUMAtriptan 50 mg tablet 2021-05 00:00: 00 02-28 04:59 :00 No [id number] 50mg Take 1 tablet by mouth once now for 1 dose. [facility] butalbital- acetaminoph en-caff (ESGIC) 50-325-40 mg tablet 1 tablet 2021-05 08:15: 00 02-21 08:09 :00 No 1{tbl} 1 tablet, Oral, ONCE, 1 dose, On Sat02/21/22 at 0315, [place] [facility] butorphanol (STADOL) injection 1 mg 2021-05 08:15: 00 02-21 07:28 :00 No 1mg 1 mg, IV Push, ONCE, 1 dose, On Sat02/21/22 at 0315, Routine [facility] NaCl 0.9% (NS) bolus infusion 1,000 mL 2021-05 07:15: 00 02-21 08:40 :00 No 1000mL at 999 mL/hr, 1,000 mL, IV Infusion, ONCE, 1 dose, On Sat02/21/22 at 0215, [place] [facility] proMETHazin e (PHENERGAN) 12.5 mg in NaCl 0.9% (NS) 50 mL IV piggyback 2021-05 06:30: 00 02-21 06:38 :00 No 12.5mg 12.5 mg, IV Piggyback, ONCE, 1 dose, On Sat02/21/22 at 0130, [place] [facility] dexamethaso ne sod phos PF injection 10 mg 2021-05 06:30: 00 02-21 06:38 :00 No 10mg 10 mg, Slow IV Push, ONCE, 1 dose, On Sat02/21/22 at 0130, 1 mL [facility] ketorolac (TORADOL) injection 15 mg 2021-05 06:30: 00 02-21 06:38 :00 No 15mg 15 mg, Slow IV Push, ONCE, 1 dose, On Sat02/21/22 at 0130, [facility] diphen[facility]A [facility]INE (BENADRYL) injection 25 mg 2021-05 06:30: 00 02-21 06:38 :00 No 25mg 25 mg, Slow IV Push, ONCE, 1 dose, On Sat02/21/22 at 0130, STAT [facility] FENTanyl PF (SUBLIMAZE (PF)) injection 50 mcg 2021-05 20:30: 00 02-18 19:44 :00 No 50ug 50 mcg, Slow IV Push, ONCE, 1 dose, On Sat02/18/22 at 1530, Routine [facility] ketorolac (TORADOL) injection 30 mg 2021-05 20:15: 00 02-18 20:09 :00 No 30mg 30 mg, Slow IV Push, ONCE, 1 dose, On 02/18/22 at 1515, [place] [facility] iopamidol (ISOVUE 370-500 mL) injection 60 mL 2021-05 19:30: 00 02-18 17:30 :00 No [id number] 60mL 60 mL, Intravenou s, ONCE, 1 dose, On 02/18/22 at 1430, Routine [facility] proMETHazin e (PHENERGAN) 12.5 mg in NaCl 0.9% (NS) 50 mL IV piggyback 2021-05 18:15: 00 02-18 18:19 :00 No 12.5mg 12.5 mg, IV Piggyback, ONCE, 1 dose, On [place] 02/18/22 at 1315, [facility] FENTanyl PF (SUBLIMAZE (PF)) injection 50 mcg 2021-05 18:00: 00 02-18 17:26 :00 No 50ug 50 mcg, Slow IV Push, ONCE, 1 dose, On [place] 02/18/22 at 1300, Routine [facility] ondansetron (ZOFRAN (PF)) injection 4 mg 2021-05 17:15: 00 02-18 17:27 :00 No 4mg 4 mg, Slow IV Push, ONCE, 1 dose, On [place] 02/18/22 at 1215, [facility] morpHINE (2 mg/mL) injection 4 mg 01-18 15:15: 01-18 14:49 :00 No 4mg 4 mg, Slow IV Push, ONCE, 1 dose, On [place] 01/18/22 at 1015, STAT [facility] ondansetron (ZOFRAN (PF)) injection 4 mg 01-18 13:30: 00 01-18 13:33 :00 No 4mg 4 mg, Slow IV Push, ONCE, 1 dose, On [place] 01/18/22 at 0830, [facility] morpHINE (4 mg/mL) injection 4 mg 01-18 13:30: 00 01-18 13:34 :00 No 4mg 4 mg, Slow IV Push, ONCE, 1 dose, On [place] 01/18/22 at 0830, STAT [facility] morpHINE (4 mg/mL) injection 4 mg 01-18 12:30: 00 01-18 11:39 :00 No 4mg 4 mg, Slow IV Push, ONCE, 1 dose, On [place] 01/18/22 at 0730, STAT [facility] famotidine (PEPCID (PF)) injection 20 mg 01-18 11:30: 00 01-18 10:52 :00 No 20mg 20 mg, Slow IV Push, ONCE, 1 dose, [facility] [place] [facility] 0630[facility] 4 mg 01-18 11:30: 00 01-18 10:52 :00 No 4mg 4 mg, Slow IV Push, ONCE, 1 dose, [facility] [place] [facility]/18/22 [facility] 0630[facility] (VISIPAQUE 270-150 mL) injection 80 mL 01-18 11:21: 00 01-18 11:15 :00 No [id number] 80mL 80 mL, Intravenou s, ONCE, 1 dose, On [place] 01/18/22 at 0630, Routine [facility] NaCl 0.9% (NS) bolus infusion 1,000 mL 01-18 11:15: 00 01-18 12:59 :00 No 1000mL at 999 mL/hr, 1,000 mL, IV Infusion, ONCE, 1 dose, On [place] 01/18/22 at 0615, [facility] morpHINE (4 mg/mL) injection 4 mg 01-18 10:45: 00 01-18 10:52 :00 No 4mg 4 mg, Slow IV Push, ONCE, 1 dose, On [place] 01/18/22 at 0545, STAT [facility] traMADoL 50 mg tablet 01-18 00:00: 00 Yes [id number] 50mg Take 1 tablet by mouth every 6 (six) hours as needed for Pain (scale 7-10). Indication s: acute pain [facility] ondansetron 4 mg disintegrat ing tablet 01-18 00:00: 00 Yes [id number] 4mg Take 1 tablet by mouth every 8 (eight) hours as needed for Nausea and Vomiting (N/V). [facility] ibuprofen 600 mg tablet 01-18 00:00: 00 Yes [id number] 600mg Take 1 tablet by mouth every 6 (six) hours as needed for Pain (scale 4-6). [facility] traMADoL 50 mg tablet 01-18 00:00: 00 Yes [id number] 50mg Take 1 tablet by mouth every 6 (six) hours as needed for Pain (scale 7-10). Indication s: acute pain [facility] ondansetron 4 mg disintegrat ing tablet 01-18 00:00: 00 Yes [id number] 4mg Take 1 tablet by mouth every 8 (eight) hours as needed for Nausea and Vomiting (N/V). [facility] ibuprofen 600 mg tablet 01-18 00:00: 00 Yes [id number] 600mg Take 1 tablet by mouth every 6 (six) hours as needed for Pain (scale 4-6). [facility] traMADoL 50 mg tablet 01-18 00:00: 00 Yes [id number] 50mg Take 1 tablet by mouth every 6 (six) hours as needed for Pain (scale 7-10). Indication s: acute pain [facility] ondansetron 4 mg disintegrat ing tablet 01-18 00:00: 00 Yes [id number] 4mg Take 1 tablet by mouth every 8 (eight) hours as needed for Nausea and Vomiting (N/V). [facility] ibuprofen 600 mg tablet 01-18 00:00: 00 Yes [id number] 600mg Take 1 tablet by mouth every 6 (six) hours as needed for Pain (scale 4-6). [facility] traMADoL 50 mg tablet 0 01-18 00:00: 00 Yes [id number] 50mg Take 1 tablet by mouth every 6 (six) hours as needed for Pain (scale 7-10). Indication s: acute pain [facility] ondansetron 4 mg disintegrat ing tablet 01-18 00:00: 00 Yes [id number] 4mg Take 1 tablet by mouth every 8 (eight) hours as needed for Nausea and Vomiting (N/V). [facility] ibuprofen 600 mg tablet 2021-0 01-18 00:00: 00 Yes [id number] 600mg Take 1 tablet by mouth every 6 (six) hours as needed for Pain (scale 4-6). [facility] traMADoL 50 mg tablet 01-18 00:00: 00 Yes [id number] 50mg Take 1 tablet by mouth every 6 (six) hours as needed for Pain (scale 7-10). Indication s: acute pain [facility] ondansetron 4 mg disintegrat ing tablet 01-18 00:00: 00 Yes [id number] 4mg Take 1 tablet by mouth every 8 (eight) hours as needed for Nausea and Vomiting (N/V). [facility] ibuprofen 600 mg tablet 01-18 00:00: 00 Yes [id number] 600mg Take 1 tablet by mouth every 6 (six) hours as needed for Pain (scale 4-6). [facility] traMADoL 50 mg tablet 01-18 00:00: 00 Yes [id number] 50mg Take 1 tablet by mouth every 6 (six) hours as needed for Pain (scale 7-10). Indication s: acute pain [facility] ondansetron 4 mg disintegrat ing tablet 01-18 00:00: 00 Yes [id number] 4mg Take 1 tablet by mouth every 8 (eight) hours as needed for Nausea and Vomiting (N/V). [facility] ibuprofen 600 mg tablet 01-18 00:00: 00 Yes [id number] 600mg Take 1 tablet by mouth every 6 (six) hours as needed for Pain (scale 4-6). [facility] traMADoL 50 mg tablet 01-18 00:00: 00 Yes [id number] 50mg Take 1 tablet by mouth every 6 (six) hours as needed for Pain (scale 7-10). Indication s: acute pain [facility] ondansetron 4 mg disintegrat ing tablet 01-18 00:00: 00 Yes [id number] 4mg Take 1 tablet by mouth every 8 (eight) hours as needed for Nausea and Vomiting (N/V). [facility] ibuprofen 600 mg tablet 01-18 00:00: 00 Yes [id number] 600mg Take 1 tablet by mouth every 6 (six) hours as needed for Pain (scale 4-6). [facility] traMADoL 50 mg tablet 01-18 00:00: 00 Yes [id number] 50mg Take 1 tablet by mouth every 6 (six) hours as needed for Pain (scale 7-10). Indication s: acute pain [facility] ondansetron 4 mg disintegrat ing tablet 01-18 00:00: 00 Yes [id number] 4mg Take 1 tablet by mouth every 8 (eight) hours as needed for Nausea and Vomiting (N/V). [facility] ibuprofen 600 mg tablet 01-18 00:00: 00 Yes [id number] 600mg Take 1 tablet by mouth every 6 (six) hours as needed for Pain (scale 4-6). [facility] traMADoL 50 mg tablet 01-18 00:00: 00 02-27 00:00 :00 No [id number] 50mg Take 1 tablet by mouth every 6 (six) hours as needed for Pain (scale 7-10). Indication s: acute pain [facility] ondansetron 4 mg disintegrat ing tablet 01-18 00:00: 00 02-27 00:00 :00 No [id number] 4mg Take 1 tablet by mouth every 8 (eight) hours as needed for Nausea and Vomiting (N/V). [facility] ibuprofen 600 mg tablet 01-18 00:00: 00 02-27 00:00 :00 No [id number] 600mg Take 1 tablet by mouth every 6 (six) hours as needed for Pain (scale 4-6). [facility] traMADoL 50 mg tablet 01-18 00:00: 00 02-27 00:00 :00 No [id number] 50mg Take 1 tablet by mouth every 6 (six) hours as needed for Pain (scale 7-10). Indication s: acute pain [facility] ondansetron 4 mg disintegrat ing tablet -08 00:00: 02-27 00:00 :00 No [id number] 4mg Take 1 tablet by mouth every 8 (eight) hours as needed for Nausea and Vomiting (N/V). [facility] ibuprofen 600 mg tablet 01-18 00:00: 00 02-27 00:00 :00 No [id number] 600mg Take 1 tablet by mouth every 6 (six) hours as needed for Pain (scale 4-6). [facility] traMADoL 50 mg tablet 01-18 00:00: 00 02-27 00:00 :00 No [id number] 50mg Take 1 tablet by mouth every 6 (six) hours as needed for Pain (scale 7-10). Indication s: acute pain [facility] ondansetron 4 mg disintegrat ing tablet 01-18 00:00: 00 02-27 00:00 :00 No [id number] 4mg Take 1 tablet by mouth every 8 (eight) hours as needed for Nausea and Vomiting (N/V). [facility] ibuprofen 600 mg tablet 01-18 00:00: 00 02-27 00:00 :00 No [id number] 600mg Take 1 tablet by mouth every 6 (six) hours as needed for Pain (scale 4-6). [facility] traMADoL 50 mg tablet 01-18 00:00: 00 02-27 00:00 :00 No [id number] 50mg Take 1 tablet by mouth every 6 (six) hours as needed for Pain (scale 7-10). Indication s: acute pain [facility] ondansetron 4 mg disintegrat ing tablet 01-18 00:00: 00 02-27 00:00 :00 No [id number] 4mg Take 1 tablet by mouth every 8 (eight) hours as needed for Nausea and Vomiting (N/V). [facility] ibuprofen 600 mg tablet 01-18 00:00: 00 02-27 00:00 :00 No [id number] 600mg Take 1 tablet by mouth every 6 (six) hours as needed for Pain (scale 4-6). [facility] predniSONE 20 mg tablet 01-16 00:00: 00 01-24 04:59 :00 No [id number] 40mg Take 2 tablets by mouth in the morning for 7 days. [facility] predniSONE 20 mg tablet 01-16 00:00: 01-24 04:59 :00 No [id number] 40mg Take 2 tablets by mouth in the morning for 7 days. [facility] morpHINE (4 mg/mL) injection 4 mg 01-15 16:15: 00 01-15 15:28 :00 No 4mg 4 mg, Slow IV Push, ONCE, 1 dose, On Sat01/15/22 at 1115, [facility] proMETHazin e (PHENERGAN) 12.5 mg in NaCl 0.9% (NS) 50 mL IV piggyback 01-15 15:30: 00 01-15 15:28 :00 No 12.5mg 12.5 mg, IV Piggyback, ONCE, 1 dose, On Sat01/15/22 at 1030, [facility] NaCl 0.9% (NS) bolus infusion 1,000 mL 01-15 15:00: 00 01-15 15:38 :00 No 1000mL at 999 mL/hr, 1,000 mL, IV Infusion, ONCE, 1 dose, On Sat01/15/22 at 1000, [facility] morpHINE (4 mg/mL) injection 4 mg 01-15 15:00: 00 01-15 14:37 :00 No 4mg 4 mg, Slow IV Push, ONCE, 1 dose, On Sat01/15/22 at 1000, [facility] ondansetron (ZOFRAN (PF)) injection 8 mg 01-15 14:15: 00 01-15 14:37 :00 No 8mg 8 mg, Slow IV Push, ONCE, 1 dose, On Sat01/15/22 at 0915, [place] [facility] [facility] dexamethaso ne sod phos PF injection 10 mg 01-15 14:15: 00 01-15 14:37 :00 No 10mg 10 mg, Slow IV Push, ONCE, 1 dose, On Sat01/15/22 at 0915, 1 mL [facility] proMETHazin e 25 mg tablet 01-15 00:00: 00 Yes [id number] 25mg Take 1 tablet by mouth every 6 (six) hours as needed for Nausea and Vomiting (N/V). [facility] proMETHazin e 25 mg tablet 01-15 00:00: 00 Yes [id number] 25mg Take 1 tablet by mouth every 6 (six) hours as needed for Nausea and Vomiting (N/V). [facility] proMETHazin e 25 mg tablet 01-15 00:00: 00 Yes [id number] 25mg Take 1 tablet by mouth every 6 (six) hours as needed for Nausea and Vomiting (N/V). [facility] proMETHazin e 25 mg tablet 01-15 00:00: 00 Yes [id number] 25mg Take 1 tablet by mouth every 6 (six) hours as needed for Nausea and Vomiting (N/V). [facility] proMETHazin e 25 mg tablet 01-15 00:00: 00 Yes [id number] 25mg Take 1 tablet by mouth every 6 (six) hours as needed for Nausea and Vomiting (N/V). [facility] proMETHazin e 25 mg tablet 01-15 00:00: 00 Yes [id number] 25mg Take 1 tablet by mouth every 6 (six) hours as needed for Nausea and Vomiting (N/V). [facility] proMETHazin e 25 mg tablet 01-15 00:00: 00 Yes [id number] 25mg Take 1 tablet by mouth every 6 (six) hours as needed for Nausea and Vomiting (N/V). [facility] proMETHazin e 25 mg tablet 01-15 00:00: 00 Yes [id number] 25mg Take 1 tablet by mouth every 6 (six) hours as needed for Nausea and Vomiting (N/V). [facility] proMETHazin e 25 mg tablet 01-15 00:00: 00 Yes [id number] 25mg Take 1 tablet by mouth every 6 (six) hours as needed for Nausea and Vomiting (N/V). [facility] proMETHazin e 25 mg tablet 01-15 00:00: 00 02-27 00:00 :00 No [id number] 25mg Take 1 tablet by mouth every 6 (six) hours as needed for Nausea and Vomiting (N/V). [facility] proMETHazin e 25 mg tablet 01-15 00:00: 00 02-27 00:00 :00 No [id number] 25mg Take 1 tablet by mouth every 6 (six) hours as needed for Nausea and Vomiting (N/V). [facility] proMETHazin e 25 mg tablet 01-15 00:00: 00 02-27 00:00 :00 No [id number] 25mg Take 1 tablet by mouth every 6 (six) hours as needed for Nausea and Vomiting (N/V). [facility] proMETHazin e 25 mg tablet 01-15 00:00: 00 02-27 00:00 :00 No [id number] 25mg Take 1 tablet by mouth every 6 (six) hours as needed for Nausea and Vomiting (N/V). [facility] ondansetron (ZOFRAN-ODT ) disintegrat ing tablet 4 mg 01-09 01:45: 00 01-09 00:56 :00 No 4mg 4 mg, Oral, ONCE, 1 dose, On Sat01/08/22 at 2045, Routine [facility] HYDROcodone -acetaminop hen (NORCO 5) 5-325 mg tablet 1 tablet 01-09 00:45: 00 01-09 00:37 :00 No 1{tbl} 1 tablet, Oral, ONCE, 1 dose, On Sat01/08/22 at 1945, [place] [facility] diphenhydrA MINE (BENADRYL) injection 25 mg 01-08 23:45: 00 01-08 23:51 :00 No 25mg 25 mg, Slow IV Push, ONCE, 1 dose, On Sat01/08/22 at 1845, STAT [facility] dexamethaso ne sod phos PF injection 10 mg 01-08 23:45: 00 01-08 23:50 :00 No 10mg 10 mg, Slow IV Push, ONCE, 1 dose, On Sat01/08/22 at 1845, 1 mL [facility] ketorolac (TORADOL) injection 30 mg 01-08 23:45: 00 01-08 23:51 :00 No 30mg 30 mg, Slow IV Push, ONCE, 1 dose, On Sat01/08/22 at 1845, [place] [facility] ondansetron 4 mg disintegrat ing tablet 01-08 00:00: 00 Yes [id number] 4mg Take 1 tablet by mouth every 8 (eight) hours as needed for Nausea and Vomiting (N/V). [facility] acetaminoph en (TYLENOL ARTHRITIS PAIN) 650 mg CR tablet 01-08 00:00: 00 Yes [id number] 650mg Take 1 tablet by mouth every 8 (eight) hours as needed for Pain. [facility] ketorolac 10 mg tablet 01-08 00:00: 00 Yes [id number] 10mg Take 1 tablet by mouth every 6 (six) hours as needed for Pain (scale 4-6) or Pain (scale 7-10). [facility] metaxalone (SKELAXIN) 800 mg tablet 01-08 00:00: 00 Yes [id number] 800mg Take 1 tablet by mouth in the morning and 1 tablet at noon and 1 tablet in the evening. [facility] ondansetron 4 mg disintegrat ing tablet 01-08 00:00: 00 Yes [id number] 4mg Take 1 tablet by mouth every 8 (eight) hours as needed for Nausea and Vomiting (N/V). [facility] acetaminoph en (TYLENOL ARTHRITIS PAIN) 650 mg CR tablet 01-08 00:00: 00 Yes [id number] 650mg Take 1 tablet by mouth every 8 (eight) hours as needed for Pain. [facility] ketorolac 10 mg tablet 01-08 00:00: 00 Yes [id number] 10mg Take 1 tablet by mouth every 6 (six) hours as needed for Pain (scale 4-6) or Pain (scale 7-10). [facility] metaxalone (SKELAXIN) 800 mg tablet 01-08 00:00: 00 Yes [id number] 800mg Take 1 tablet by mouth in the morning and 1 tablet at noon and 1 tablet in the evening. [facility] ondansetron 4 mg disintegrat ing tablet 01-08 00:00: 00 Yes [id number] 4mg Take 1 tablet by mouth every 8 (eight) hours as needed for Nausea and Vomiting (N/V). [facility] acetaminoph en (TYLENOL ARTHRITIS PAIN) 650 mg CR tablet 01-08 00:00: 00 Yes [id number] 650mg Take 1 tablet by mouth every 8 (eight) hours as needed for Pain. [facility] ketorolac 10 mg tablet 01-08 00:00: 00 Yes [id number] 10mg Take 1 tablet by mouth every 6 (six) hours as needed for Pain (scale 4-6) or Pain (scale 7-10). [facility] metaxalone (SKELAXIN) 800 mg tablet 01-08 00:00: 00 Yes [id number] 800mg Take 1 tablet by mouth in the morning and 1 tablet at noon and 1 tablet in the evening. [facility] ondansetron 4 mg disintegrat ing tablet 01-08 00:00: 00 Yes [id number] 4mg Take 1 tablet by mouth every 8 (eight) hours as needed for Nausea and Vomiting (N/V). [facility] acetaminoph en (TYLENOL ARTHRITIS PAIN) 650 mg CR tablet 01-08 00:00: 00 Yes [id number] 650mg Take 1 tablet by mouth every 8 (eight) hours as needed for Pain. [facility] ketorolac 10 mg tablet 01-08 00:00: 00 Yes [id number] 10mg Take 1 tablet by mouth every 6 (six) hours as needed for Pain (scale 4-6) or Pain (scale 7-10). [facility] metaxalone (SKELAXIN) 800 mg tablet 01-08 00:00: 00 Yes [id number] 800mg Take 1 tablet by mouth in the morning and 1 tablet at noon and 1 tablet in the evening. [facility] ondansetron 4 mg disintegrat ing tablet 01-08 00:00: 00 Yes [id number] 4mg Take 1 tablet by mouth every 8 (eight) hours as needed for Nausea and Vomiting (N/V). [facility] acetaminoph en (TYLENOL ARTHRITIS PAIN) 650 mg CR tablet 01-08 00:00: 00 Yes [id number] 650mg Take 1 tablet by mouth every 8 (eight) hours as needed for Pain. [facility] ketorolac 10 mg tablet 01-08 00:00: 00 Yes [id number] 10mg Take 1 tablet by mouth every 6 (six) hours as needed for Pain (scale 4-6) or Pain (scale 7-10). [facility] metaxalone (SKELAXIN) 800 mg tablet 01-08 00:00: 00 Yes [id number] 800mg Take 1 tablet by mouth in the morning and 1 tablet at noon and 1 tablet in the evening. [facility] ondansetron 4 mg disintegrat ing tablet 01-08 00:00: 00 Yes [id number] 4mg Take 1 tablet by mouth every 8 (eight) hours as needed for Nausea and Vomiting (N/V). [facility] acetaminoph en (TYLENOL ARTHRITIS PAIN) 650 mg CR tablet 01-08 00:00: 00 Yes [id number] 650mg Take 1 tablet by mouth every 8 (eight) hours as needed for Pain. [facility] ketorolac 10 mg tablet 01-08 00:00: 00 Yes [id number] 10mg Take 1 tablet by mouth every 6 (six) hours as needed for Pain (scale 4-6) or Pain (scale 7-10). [facility] metaxalone (SKELAXIN) 800 mg tablet 01-08 00:00: 00 Yes [id number] 800mg Take 1 tablet by mouth in the morning and 1 tablet at noon and 1 tablet in the evening. [facility] ondansetron 4 mg disintegrat ing tablet 01-08 00:00: 00 Yes [id number] 4mg Take 1 tablet by mouth every 8 (eight) hours as needed for Nausea and Vomiting (N/V). [facility] acetaminoph en (TYLENOL ARTHRITIS PAIN) 650 mg CR tablet 01-08 00:00: 00 Yes [id number] 650mg Take 1 tablet by mouth every 8 (eight) hours as needed for Pain. [facility] ketorolac 10 mg tablet 01-08 00:00: 00 Yes [id number] 10mg Take 1 tablet by mouth every 6 (six) hours as needed for Pain (scale 4-6) or Pain (scale 7-10). [facility] metaxalone (SKELAXIN) 800 mg tablet 01-08 00:00: 00 Yes [id number] 800mg Take 1 tablet by mouth in the morning and 1 tablet at noon and 1 tablet in the evening. [facility] ondansetron 4 mg disintegrat ing tablet 01-08 00:00: 00 Yes [id number] 4mg Take 1 tablet by mouth every 8 (eight) hours as needed for Nausea and Vomiting (N/V). [facility] acetaminoph en (TYLENOL ARTHRITIS PAIN) 650 mg CR tablet 01-08 00:00: 00 Yes [id number] 650mg Take 1 tablet by mouth every 8 (eight) hours as needed for Pain. [facility] ketorolac 10 mg tablet 01-08 00:00: 00 Yes [id number] 10mg Take 1 tablet by mouth every 6 (six) hours as needed for Pain (scale 4-6) or Pain (scale 7-10). [facility] metaxalone (SKELAXIN) 800 mg tablet 01-08 00:00: 00 Yes [id number] 800mg Take 1 tablet by mouth in the morning and 1 tablet at noon and 1 tablet in the evening. [facility] ondansetron 4 mg disintegrat ing tablet 01-08 00:00: 00 Yes [id number] 4mg Take 1 tablet by mouth every 8 (eight) hours as needed for Nausea and Vomiting (N/V). [facility] acetaminoph en (TYLENOL ARTHRITIS PAIN) 650 mg CR tablet 01-08 00:00: 00 Yes [id number] 650mg Take 1 tablet by mouth every 8 (eight) hours as needed for Pain. [facility] ketorolac 10 mg tablet 01-08 00:00: 00 Yes [id number] 10mg Take 1 tablet by mouth every 6 (six) hours as needed for Pain (scale 4-6) or Pain (scale 7-10). [facility] metaxalone (SKELAXIN) 800 mg tablet 01-08 00:00: 00 Yes [id number] 800mg Take 1 tablet by mouth in the morning and 1 tablet at noon and 1 tablet in the evening. [facility] ondansetron 4 mg disintegrat ing tablet 01-08 00:00: 00 Yes [id number] 4mg Take 1 tablet by mouth every 8 (eight) hours as needed for Nausea and Vomiting (N/V). [facility] acetaminoph en (TYLENOL ARTHRITIS PAIN) 650 mg CR tablet 01-08 00:00: 00 Yes [id number] 650mg Take 1 tablet by mouth every 8 (eight) hours as needed for Pain. [facility] ketorolac 10 mg tablet 01-08 00:00: 00 Yes [id number] 10mg Take 1 tablet by mouth every 6 (six) hours as needed for Pain (scale 4-6) or Pain (scale 7-10). [facility] metaxalone (SKELAXIN) 800 mg tablet 01-08 00:00: 00 Yes [id number] 800mg Take 1 tablet by mouth in the morning and 1 tablet at noon and 1 tablet in the evening. [facility] acetaminoph en (TYLENOL ARTHRITIS PAIN) 650 mg CR tablet 01-08 00:00: 00 Yes [id number] 650mg Take 1 tablet by mouth every 8 (eight) hours as needed for Pain. [facility] acetaminoph en (TYLENOL ARTHRITIS PAIN) 650 mg CR tablet 01-08 00:00: 00 Yes [id number] 650mg Take 1 tablet by mouth every 8 (eight) hours as needed for Pain. [facility] acetaminoph en (TYLENOL ARTHRITIS PAIN) 650 mg CR tablet 01-08 00:00: 00 Yes [id number] 650mg Take 1 tablet by mouth every 8 (eight) hours as needed for Pain. [facility] acetaminoph en (TYLENOL ARTHRITIS PAIN) 650 mg CR tablet 01-08 00:00: 00 Yes [id number] 650mg Take 1 tablet by mouth every 8 (eight) hours as needed for Pain. [facility] acetaminoph en (TYLENOL ARTHRITIS PAIN) 650 mg CR tablet 01-08 00:00: 00 Yes [id number] 650mg Take 1 tablet by mouth every 8 (eight) hours as needed for Pain. [facility] acetaminoph en (TYLENOL ARTHRITIS PAIN) 650 mg CR tablet 01-08 00:00: 00 Yes [id number] 650mg Take 1 tablet by mouth every 8 (eight) hours as needed for Pain. [facility] acetaminoph en (TYLENOL ARTHRITIS PAIN) 650 mg CR tablet 01-08 00:00: 00 Yes [id number] 650mg Take 1 tablet by mouth every 8 (eight) hours as needed for Pain. [facility] acetaminoph en (TYLENOL ARTHRITIS PAIN) 650 mg CR tablet 01-08 00:00: 00 Yes [id number] 650mg Take 1 tablet by mouth every 8 (eight) hours as needed for Pain. [facility] acetaminoph en (TYLENOL ARTHRITIS PAIN) 650 mg CR tablet 01-08 00:00: 00 Yes [id number] 650mg Take 1 tablet by mouth every 8 (eight) hours as needed for Pain. [facility] acetaminoph en (TYLENOL ARTHRITIS PAIN) 650 mg CR tablet 01-08 00:00: 00 Yes [id number] 650mg Take 1 tablet by mouth every 8 (eight) hours as needed for Pain. [facility] acetaminoph en (TYLENOL ARTHRITIS PAIN) 650 mg CR tablet 01-08 00:00: 00 Yes [id number] 650mg Take 1 tablet by mouth every 8 (eight) hours as needed for Pain. [facility] acetaminoph en (TYLENOL ARTHRITIS PAIN) 650 mg CR tablet 01-08 00:00: 00 Yes [id number] 650mg Take 1 tablet by mouth every 8 (eight) hours as needed for Pain. [facility] acetaminoph en (TYLENOL ARTHRITIS PAIN) 650 mg CR tablet 01-08 00:00: 00 Yes [id number] 650mg Take 1 tablet by mouth every 8 (eight) hours as needed for Pain. [facility] acetaminoph en (TYLENOL ARTHRITIS PAIN) 650 mg CR tablet 01-08 00:00: 00 Yes [id number] 650mg Take 1 tablet by mouth every 8 (eight) hours as needed for Pain. [facility] acetaminoph en (TYLENOL ARTHRITIS PAIN) 650 mg CR tablet 01-08 00:00: 00 Yes [id number] 650mg Take 1 tablet by mouth every 8 (eight) hours as needed for Pain. [facility] acetaminoph en (TYLENOL ARTHRITIS PAIN) 650 mg CR tablet 01-08 00:00: 00 Yes [id number] 650mg Take 1 tablet by mouth every 8 (eight) hours as needed for Pain. [facility] acetaminoph en (TYLENOL ARTHRITIS PAIN) 650 mg CR tablet 01-08 00:00: 00 Yes [id number] 650mg Take 1 tablet by mouth every 8 (eight) hours as needed for Pain. [facility] acetaminoph en (TYLENOL ARTHRITIS PAIN) 650 mg CR tablet 01-08 00:00: 00 04-07 00:00 :00 No [id number] 650mg Take 1 tablet by mouth every 8 (eight) hours as needed for Pain. [facility] ondansetron 4 mg disintegrat ing tablet 01-08 00:00: 00 02-27 00:00 :00 No [id number] 4mg Take 1 tablet by mouth every 8 (eight) hours as needed for Nausea and Vomiting (N/V). [facility] ketorolac 10 mg tablet 01-08 00:00: 00 02-27 00:00 :00 No [id number] 10mg Take 1 tablet by mouth every 6 (six) hours as needed for Pain (scale 4-6) or Pain (scale 7-10). [facility] metaxalone (SKELAXIN) 800 mg tablet 01-08 00:00: 00 02-27 00:00 :00 No [id number] 800mg Take 1 tablet by mouth in the morning and 1 tablet at noon and 1 tablet in the evening. [facility] ondansetron 4 mg disintegrat ing tablet 01-08 00:00: 00 02-27 00:00 :00 No [id number] 4mg Take 1 tablet by mouth every 8 (eight) hours as needed for Nausea and Vomiting (N/V). [facility] ketorolac 10 mg tablet 01-08 00:00: 00 02-27 00:00 :00 No [id number] 10mg Take 1 tablet by mouth every 6 (six) hours as needed for Pain (scale 4-6) or Pain (scale 7-10). [facility] metaxalone (SKELAXIN) 800 mg tablet 01-08 00:00: 00 02-27 00:00 :00 No [id number] 800mg Take 1 tablet by mouth in the morning and 1 tablet at noon and 1 tablet in the evening. [facility] ondansetron 4 mg disintegrat ing tablet 01-08 00:00: 00 02-27 00:00 :00 No [id number] 4mg Take 1 tablet by mouth every 8 (eight) hours as needed for Nausea and Vomiting (N/V). [facility] ketorolac 10 mg tablet 01-08 00:00: 00 02-27 00:00 :00 No [id number] 10mg Take 1 tablet by mouth every 6 (six) hours as needed for Pain (scale 4-6) or Pain (scale 7-10). [facility] metaxalone (SKELAXIN) 800 mg tablet 01-08 00:00: 00 02-27 00:00 :00 No [id number] 800mg Take 1 tablet by mouth in the morning and 1 tablet at noon and 1 tablet in the evening. [facility] ondansetron 4 mg disintegrat ing tablet 01-08 00:00: 00 02-27 00:00 :00 No [id number] 4mg Take 1 tablet by mouth every 8 (eight) hours as needed for Nausea and Vomiting (N/V). [facility] ketorolac 10 mg tablet 01-08 00:00: 00 02-27 00:00 :00 No [id number] 10mg Take 1 tablet by mouth every 6 (six) hours as needed for Pain (scale 4-6) or Pain (scale 7-10). [facility] metaxalone (SKELAXIN) 800 mg tablet 01-08 00:00: 00 02-27 00:00 :00 No [id number] 800mg Take 1 tablet by mouth in the morning and 1 tablet at noon and 1 tablet in the evening. [facility] metroNIDAZO LE 500 mg tablet 12-18 00:00: 00 Yes 500mg Take 1 tablet by mouth every 12 (twelve) hours. [facility] metroNIDAZO LE 500 mg tablet 12-18 00:00: 00 Yes 500mg Take 1 tablet by mouth every 12 (twelve) hours. [facility] metroNIDAZO LE 500 mg tablet 2-0 8-08 00:00: 00 Yes 500mg Take 1 tablet by mouth every 12 (twelve) hours. [facility] metroNIDAZO LE 500 mg tablet 2-0 8-08 00:00: 00 Yes 500mg Take 1 tablet by mouth every 12 (twelve) hours. [facility] metroNIDAZO LE 500 mg tablet 2-0 8-08 00:00: 00 Yes 500mg Take 1 tablet by mouth every 12 (twelve) hours. [facility] metroNIDAZO LE 500 mg tablet 2-0 8-08 00:00: 00 Yes 500mg Take 1 tablet by mouth every 12 (twelve) hours. [facility] metroNIDAZO LE 500 mg tablet 2-0 8-08 00:00: 00 Yes 500mg Take 1 tablet by mouth every 12 (twelve) hours. [facility] metroNIDAZO LE 500 mg tablet 2-0 8-08 00:00: 00 Yes 500mg Take 1 tablet by mouth every 12 (twelve) hours. [facility] metroNIDAZO LE 500 mg tablet 2-0 8-08 00:00: 00 Yes 500mg Take 1 tablet by mouth every 12 (twelve) hours. [facility] metroNIDAZO LE 500 mg tablet 2-0 8-08 00:00: 00 Yes 500mg Take 1 tablet by mouth every 12 (twelve) hours. [facility] metroNIDAZO LE 500 mg tablet 2-0 8-08 00:00: 00 Yes 500mg Take 1 tablet by mouth every 12 (twelve) hours. [facility] metroNIDAZO LE 500 mg tablet 2-0 8-08 00:00: 00 18 00:00 :00 No 500mg Take 1 tablet by mouth every 12 (twelve) hours. [facility] metroNIDAZO LE 500 mg tablet 2-0 8-08 00:00: 00 18 00:00 :00 No 500mg Take 1 tablet by mouth every 12 (twelve) hours. [facility] metroNIDAZO LE 500 mg tablet 12-18 00:00: 00 02-27 00:00 :00 No 500mg Take 1 tablet by mouth every 12 (twelve) hours. [facility] metroNIDAZO LE 500 mg tablet 12-18 00:00: 00 02-27 00:00 :00 No 500mg Take 1 tablet by mouth every 12 (twelve) hours. [facility] trazodone/d ietary supp. no.8 (TRAZAMINE ORAL) 12-12 15:08: 46 12-12 00:00 :00 No Take by mouth. [facility] diphenhydrA MINE 25 mg capsule 12-12 13:03: 04 Yes 25mg Take 25 mg by mouth every 6 (six) hours as needed for Allergies. [facility] carbamazepi ne (TEGRETOL ORAL) 12-12 13:03: 04 Yes Take by mouth. [facility] citalopram hydrobromid e (CITALOPRAM ORAL) 12-12 13:03: 04 Yes Take by mouth. [facility] ALBUTEROL INHALE 12-12 13:03: 04 Yes [facility] diphenhydrA MINE 25 mg capsule 12-12 13:03: 04 Yes 25mg Take 25 mg by mouth every 6 (six) hours as needed for Allergies. [facility] carbamazepi ne (TEGRETOL ORAL) 12-12 13:03: 04 Yes Take by mouth. [facility] citalopram hydrobromid e (CITALOPRAM ORAL) 12-12 13:03: 04 Yes Take by mouth. [facility] ALBUTEROL INHALE 12-12 13:03: 04 Yes [facility] diphenhydrA MINE 25 mg capsule 12-12 13:03: 04 Yes 25mg Take 25 mg by mouth every 6 (six) hours as needed for Allergies. [facility] carbamazepi ne (TEGRETOL ORAL) 12-12 13:03: 04 Yes Take by mouth. [facility] citalopram hydrobromid e (CITALOPRAM ORAL) 12-12 13:03: 04 Yes Take by mouth. [facility] ALBUTEROL INHALE 12-12 13:03: 04 Yes [facility] diphenhydrA MINE 25 mg capsule 12-12 13:03: 04 Yes 25mg Take 25 mg by mouth every 6 (six) hours as needed for Allergies. [facility] carbamazepi ne (TEGRETOL ORAL) 12-12 13:03: 04 Yes Take by mouth. [facility] citalopram hydrobromid e (CITALOPRAM ORAL) 12-12 13:03: 04 Yes Take by mouth. [facility] ALBUTEROL INHALE 12-12 13:03: 04 Yes [facility] diphenhydrA MINE 25 mg capsule 12-12 13:03: 04 Yes 25mg Take 25 mg by mouth every 6 (six) hours as needed for Allergies. [facility] carbamazepi ne (TEGRETOL ORAL) 12-12 13:03: 04 Yes Take by mouth. [facility] citalopram hydrobromid e (CITALOPRAM ORAL) 12-12 13:03: 04 Yes Take by mouth. [facility] ALBUTEROL INHALE 12-12 13:03: 04 Yes [facility] diphenhydrA MINE 25 mg capsule 12-12 13:03: 04 Yes 25mg Take 25 mg by mouth every 6 (six) hours as needed for Allergies. [facility] carbamazepi ne (TEGRETOL ORAL) 12-12 13:03: 04 Yes Take by mouth. [facility] citalopram hydrobromid e (CITALOPRAM ORAL) 12-12 13:03: 04 Yes Take by mouth. [facility] ALBUTEROL INHALE 12-12 13:03: 04 Yes [facility] diphenhydrA MINE 25 mg capsule 12-12 13:03: 04 Yes 25mg Take 25 mg by mouth every 6 (six) hours as needed for Allergies. [facility] carbamazepi ne (TEGRETOL ORAL) 12-12 13:03: 04 Yes Take by mouth. [facility] citalopram hydrobromid e (CITALOPRAM ORAL) 12-12 13:03: 04 Yes Take by mouth. [facility] ALBUTEROL INHALE 12-12 13:03: 04 Yes [facility] diphenhydrA MINE 25 mg capsule 12-12 13:03: 04 Yes 25mg Take 25 mg by mouth every 6 (six) hours as needed for Allergies. [facility] carbamazepi ne (TEGRETOL ORAL) 12-12 13:03: 04 Yes Take by mouth. [facility] citalopram hydrobromid e (CITALOPRAM ORAL) 12-12 13:03: 04 Yes Take by mouth. [facility] ALBUTEROL INHALE 12-12 13:03: 04 Yes [facility] diphenhydrA MINE 25 mg capsule 12-12 13:03: 04 Yes 25mg Take 25 mg by mouth every 6 (six) hours as needed for Allergies. [facility] carbamazepi ne (TEGRETOL ORAL) 12-12 13:03: 04 Yes Take by mouth. [facility] citalopram hydrobromid e (CITALOPRAM ORAL) 12-12 13:03: 04 Yes Take by mouth. [facility] ALBUTEROL INHALE 12-12 13:03: 04 Yes [facility] diphenhydrA MINE 25 mg capsule 12-12 13:03: 04 Yes 25mg Take 25 mg by mouth every 6 (six) hours as needed for Allergies. [facility] carbamazepi ne (TEGRETOL ORAL) 12-12 13:03: 04 Yes Take by mouth. [facility] citalopram hydrobromid e (CITALOPRAM ORAL) 12-12 13:03: 04 Yes Take by mouth. [facility] ALBUTEROL INHALE 0 12-12 13:03: 04 Yes [facility] diphenhydrA MINE 25 mg capsule 12-12 13:03: 04 Yes 25mg Take 25 mg by mouth every 6 (six) hours as needed for Allergies. [facility] carbamazepi ne (TEGRETOL ORAL) 12-12 13:03: 04 Yes Take by mouth. [facility] citalopram hydrobromid e (CITALOPRAM ORAL) 12-12 13:03: 04 Yes Take by mouth. [facility] ALBUTEROL INHALE 0 12-12 13:03: 04 Yes [facility] ALBUTEROL INHALE 0 12-12 13:03: 04 Yes [facility] ALBUTEROL INHALE 0 12-12 13:03: 04 Yes [facility] ALBUTEROL INHALE 0 12-12 13:03: 04 Yes [facility] ALBUTEROL INHALE 0 12-12 13:03: 04 Yes [facility] ALBUTEROL INHALE 0 12-12 13:03: 04 Yes [facility] ALBUTEROL INHALE 0 12-12 13:03: 04 Yes [facility] ALBUTEROL INHALE 0 12-12 13:03: 04 Yes [facility] ALBUTEROL INHALE 0 12-12 13:03: 04 Yes [facility] ALBUTEROL INHALE 0 12-12 13:03: 04 Yes [facility] ALBUTEROL INHALE 0 8 13:03: 04 Yes [facility] ALBUTEROL INHALE 0 12-12 13:03: 04 Yes [facility] ALBUTEROL INHALE 2021-0 12-12 13:03: 04 Yes [facility] ALBUTEROL INHALE 2021-0 12-12 13:03: 04 Yes [facility] ALBUTEROL INHALE 2021-0 12-12 13:03: 04 Yes [facility] traZODone 50 mg tablet 0 12-12 00:00: 00 Yes [id number] 50mg Take 1 tablet by mouth at bedtime. [facility] SERTraline (ZOLOFT) 50 mg tablet 0 12-12 00:00: 00 Yes [id number] 50mg Take 1 tablet by mouth in the morning. [facility] traZODone 50 mg tablet 0 12-12 00:00: 00 Yes [id number] 50mg Take 1 tablet by mouth at bedtime. [facility] SERTraline (ZOLOFT) 50 mg tablet 2021-0 12-12 00:00: 00 Yes [id number] 50mg Take 1 tablet by mouth in the morning. [facility] traZODone 50 mg tablet 2021-0 12-12 00:00: 00 Yes [id number] 50mg Take 1 tablet by mouth at bedtime. [facility] SERTraline (ZOLOFT) 50 mg tablet 2021-0 12-12 00:00: 00 Yes [id number] 50mg Take 1 tablet by mouth in the morning. [facility] traZODone 50 mg tablet 2021-0 12-12 00:00: 00 Yes [id number] 50mg Take 1 tablet by mouth at bedtime. [facility] SERTraline (ZOLOFT) 50 mg tablet 2021-0 12-12 00:00: 00 Yes [id number] 50mg Take 1 tablet by mouth in the morning. [facility] traZODone 50 mg tablet 2021-0 12-12 00:00: 00 Yes [id number] 50mg Take 1 tablet by mouth at bedtime. [facility] SERTraline (ZOLOFT) 50 mg tablet 2021-0 - 00:00: 00 Yes [id number] 50mg Take 1 tablet by mouth in the morning. [facility] traZODone 50 mg tablet 2021-0 8- 00:00: 00 Yes [id number] 50mg Take 1 tablet by mouth at bedtime. [facility] SERTraline (ZOLOFT) 50 mg tablet 2021-0 8- 00:00: 00 Yes [id number] 50mg Take 1 tablet by mouth in the morning. [facility] traZODone 50 mg tablet 2021-0 8- 00:00: 00 Yes [id number] 50mg Take 1 tablet by mouth at bedtime. [facility] SERTraline (ZOLOFT) 50 mg tablet 2021-0 8- 00:00: 00 Yes [id number] 50mg Take 1 tablet by mouth in the morning. [facility] traZODone 50 mg tablet 2021-0 8- 00:00: 00 Yes [id number] 50mg Take 1 tablet by mouth at bedtime. [facility] SERTraline (ZOLOFT) 50 mg tablet 2021-0 12-12 00:00: 00 Yes [id number] 50mg Take 1 tablet by mouth in the morning. [facility] traZODone 50 mg tablet 2021-0 8- 00:00: 00 Yes [id number] 50mg Take 1 tablet by mouth at bedtime. [facility] SERTraline (ZOLOFT) 50 mg tablet 2021-0 - 00:00: 00 Yes [id number] 50mg Take 1 tablet by mouth in the morning. [facility] traZODone 50 mg tablet 2021-0 8- 00:00: 00 Yes [id number] 50mg Take 1 tablet by mouth at bedtime. [facility] SERTraline (ZOLOFT) 50 mg tablet 2021-0 8- 00:00: 00 Yes [id number] 50mg Take 1 tablet by mouth in the morning. [facility] traZODone 50 mg tablet 2021-0 8-02 00:00: 00 Yes [id number] 50mg Take 1 tablet by mouth at bedtime. [facility] SERTraline (ZOLOFT) 50 mg tablet 12-12 00:00: 00 Yes [id number] 50mg Take 1 tablet by mouth in the morning. [facility] traZODone 50 mg tablet 12-12 00:00: 00 02-27 00:00 :00 No [id number] 50mg Take 1 tablet by mouth at bedtime. [facility] SERTraline (ZOLOFT) 50 mg tablet 12-12 00:00: 00 02-27 00:00 :00 No [id number] 50mg Take 1 tablet by mouth in the morning. [facility] traZODone 50 mg tablet 12-12 00:00: 00 02-27 00:00 :00 No [id number] 50mg Take 1 tablet by mouth at bedtime. [facility] SERTraline (ZOLOFT) 50 mg tablet 12-12 00:00: 00 02-27 00:00 :00 No [id number] 50mg Take 1 tablet by mouth in the morning. [facility] traZODone 50 mg tablet 12-12 00:00: 00 02-27 00:00 :00 No [id number] 50mg Take 1 tablet by mouth at bedtime. [facility] SERTraline (ZOLOFT) 50 mg tablet 12-12 00:00: 00 02-27 00:00 :00 No [id number] 50mg Take 1 tablet by mouth in the morning. [facility] traZODone 50 mg tablet 12-12 00:00: 00 02-27 00:00 :00 No [id number] 50mg Take 1 tablet by mouth at bedtime. [facility] SERTraline (ZOLOFT) 50 mg tablet - 00:00: 00 02-27 00:00 :00 No [id number] 50mg Take 1 tablet by mouth in the morning. [facility] sulfamethox azole-trime thoprim (BACTRIM DS) 800-160 mg per tablet 8-02 00:00: 00 12-16 04:59 :00 No [id number] 1{tbl} Take 1 tablet by mouth in the morning and 1 tablet in the evening. Do all this for 3 days. [facility] 7-15 00:00: 00 Yes [id number] 600mg Take 1 tablet by mouth every 6 (six) hours as needed for Pain (scale 4-6). [facility] ibuprofen 600 mg tablet 0 7-15 00:00: 00 Yes [id number] 600mg Take 1 tablet by mouth every 6 (six) hours as needed for Pain (scale 4-6). [facility] ibuprofen 600 mg tablet 0 7-15 00:00: 00 Yes [id number] 600mg Take 1 tablet by mouth every 6 (six) hours as needed for Pain (scale 4-6). [facility] ibuprofen 600 mg tablet 0 7-15 00:00: 00 Yes [id number] 600mg Take 1 tablet by mouth every 6 (six) hours as needed for Pain (scale 4-6). [facility] ibuprofen 600 mg tablet 0 7-15 00:00: 00 Yes [id number] 600mg Take 1 tablet by mouth every 6 (six) hours as needed for Pain (scale 4-6). [facility] ibuprofen 600 mg tablet 0 7-15 00:00: 00 Yes [id number] 600mg Take 1 tablet by mouth every 6 (six) hours as needed for Pain (scale 4-6). [facility] ibuprofen 600 mg tablet 0 7-15 00:00: 00 Yes [id number] 600mg Take 1 tablet by mouth every 6 (six) hours as needed for Pain (scale 4-6). [facility] ibuprofen 600 mg tablet 2021-0 7-15 00:00: 00 Yes [id number] 600mg Take 1 tablet by mouth every 6 (six) hours as needed for Pain (scale 4-6). [facility] ibuprofen 600 mg tablet 2021-0 7-15 00:00: 00 Yes [id number] 600mg Take 1 tablet by mouth every 6 (six) hours as needed for Pain (scale 4-6). [facility] ibuprofen 600 mg tablet 0 7-15 00:00: 00 Yes [id number] 600mg Take 1 tablet by mouth every 6 (six) hours as needed for Pain (scale 4-6). [facility] ibuprofen 600 mg tablet 7-15 00:00: 00 Yes [id number] 600mg Take 1 tablet by mouth every 6 (six) hours as needed for Pain (scale 4-6). [facility] ibuprofen 600 mg tablet 7-15 00:00: 00 02-27 00:00 :00 No [id number] 600mg Take 1 tablet by mouth every 6 (six) hours as needed for Pain (scale 4-6). [facility] ibuprofen 600 mg tablet 7-15 00:00: 00 02-27 00:00 :00 No [id number] 600mg Take 1 tablet by mouth every 6 (six) hours as needed for Pain (scale 4-6). [facility] ibuprofen 600 mg tablet 7-15 00:00: 00 02-27 00:00 :00 No [id number] 600mg Take 1 tablet by mouth every 6 (six) hours as needed for Pain (scale 4-6). [facility] ibuprofen 600 mg tablet 7-15 00:00: 00 02-27 00:00 :00 No [id number] 600mg Take 1 tablet by mouth every 6 (six) hours as needed for Pain (scale 4-6). [facility] ibuprofen 600 mg tablet 7-15 00:00: 00 02-27 00:00 :00 No [id number] 600mg Take 1 tablet by mouth every 6 (six) hours as needed for Pain (scale 4-6). [facility] acetaminoph en-codeine 300-30 mg tablet 7-15 00:00: 00 12-12 00:00 :00 No [id number] 1{tbl} Take 1 tablet by mouth every 4 (four) hours as needed for Pain (scale 4-6). Indication s: acute pain [facility] acetaminoph en-codeine 300-30 mg tablet 11-24 00:00: 00 12-12 00:00 :00 No [id number] 1{tbl} Take 1 tablet by mouth every 4 (four) hours as needed for Pain (scale 4-6). Indication s: acute pain [facility] bromphenira mine-pseudo ephedrine-D M (BROMFED DM) 2-30-10 mg/5 mL syrup 11-18 00:00: 00 Yes [id number] 5mL Take 5 mL by mouth 4 (four) times daily as needed for Congestion /Allergies or Cough. [facility] naproxen 500 mg tablet 11-18 00:00: 00 Yes [id number] 500mg Take 1 tablet by mouth every 8 (eight) hours as needed for Pain (scale 4-6). [facility] cyclobenzap rine 10 mg tablet 11-18 00:00: 00 Yes [id number] 10mg Take 1 tablet by mouth at bedtime as needed for Muscle Spasms. [facility] bromphenira mine-pseudo ephedrine-D M (BROMFED DM) 2-30-10 mg/5 mL syrup 11-18 00:00: 00 Yes [id number] 5mL Take 5 mL by mouth 4 (four) times daily as needed for Congestion /Allergies or Cough. [facility] naproxen 500 mg tablet 11-18 00:00: 00 Yes [id number] 500mg Take 1 tablet by mouth every 8 (eight) hours as needed for Pain (scale 4-6). [facility] cyclobenzap rine 10 mg tablet 11-18 00:00: 00 Yes [id number] 10mg Take 1 tablet by mouth at bedtime as needed for Muscle Spasms. [facility] bromphenira mine-pseudo ephedrine-D M (BROMFED DM) 2-30-10 mg/5 mL syrup 11-18 00:00: 00 Yes [id number] 5mL Take 5 mL by mouth 4 (four) times daily as needed for Congestion /Allergies or Cough. [facility] naproxen 500 mg tablet 11-18 00:00: 00 Yes [id number] 500mg Take 1 tablet by mouth every 8 (eight) hours as needed for Pain (scale 4-6). [facility] cyclobenzap rine 10 mg tablet 11-18 00:00: 00 Yes [id number] 10mg Take 1 tablet by mouth at bedtime as needed for Muscle Spasms. [facility] bromphenira mine-pseudo ephedrine-D M (BROMFED DM) 2-30-10 mg/5 mL syrup 11-18 00:00: 00 Yes [id number] 5mL Take 5 mL by mouth 4 (four) times daily as needed for Congestion /Allergies or Cough. [facility] naproxen 500 mg tablet 11-18 00:00: 00 Yes [id number] 500mg Take 1 tablet by mouth every 8 (eight) hours as needed for Pain (scale 4-6). [facility] cyclobenzap rine 10 mg tablet 11-18 00:00: 00 Yes [id number] 10mg Take 1 tablet by mouth at bedtime as needed for Muscle Spasms. [facility] bromphenira mine-pseudo ephedrine-D M (BROMFED DM) 2-30-10 mg/5 mL syrup 11-18 00:00: 00 Yes [id number] 5mL Take 5 mL by mouth 4 (four) times daily as needed for Congestion /Allergies or Cough. [facility] naproxen 500 mg tablet 0 11-18 00:00: 00 Yes [id number] 500mg Take 1 tablet by mouth every 8 (eight) hours as needed for Pain (scale 4-6). [facility] cyclobenzap rine 10 mg tablet 0 11-18 00:00: 00 Yes [id number] 10mg Take 1 tablet by mouth at bedtime as needed for Muscle Spasms. [facility] bromphenira mine-pseudo ephedrine-D M (BROMFED DM) 2-30-10 mg/5 mL syrup 0 11-18 00:00: 00 Yes [id number] 5mL Take 5 mL by mouth 4 (four) times daily as needed for Congestion /Allergies or Cough. [facility] naproxen 500 mg tablet 11-18 00:00: 00 Yes [id number] 500mg Take 1 tablet by mouth every 8 (eight) hours as needed for Pain (scale 4-6). [facility] cyclobenzap rine 10 mg tablet 11-18 00:00: 00 Yes [id number] 10mg Take 1 tablet by mouth at bedtime as needed for Muscle Spasms. [facility] bromphenira mine-pseudo ephedrine-D M (BROMFED DM) 2-30-10 mg/5 mL syrup 11-18 00:00: 00 Yes [id number] 5mL Take 5 mL by mouth 4 (four) times daily as needed for Congestion /Allergies or Cough. [facility] naproxen 500 mg tablet 11-18 00:00: 00 Yes [id number] 500mg Take 1 tablet by mouth every 8 (eight) hours as needed for Pain (scale 4-6). [facility] cyclobenzap rine 10 mg tablet 11-18 00:00: 00 Yes [id number] 10mg Take 1 tablet by mouth at bedtime as needed for Muscle Spasms. [facility] bromphenira mine-pseudo ephedrine-D M (BROMFED DM) 2-30-10 mg/5 mL syrup 11-18 00:00: 00 Yes [id number] 5mL Take 5 mL by mouth 4 (four) times daily as needed for Congestion /Allergies or Cough. [facility] naproxen 500 mg tablet 11-18 00:00: 00 Yes [id number] 500mg Take 1 tablet by mouth every 8 (eight) hours as needed for Pain (scale 4-6). [facility] cyclobenzap rine 10 mg tablet 0 11-18 00:00: 00 Yes [id number] 10mg Take 1 tablet by mouth at bedtime as needed for Muscle Spasms. [facility] bromphenira mine-pseudo ephedrine-D M (BROMFED DM) 2-30-10 mg/5 mL syrup 11-18 00:00: 00 Yes [id number] 5mL Take 5 mL by mouth 4 (four) times daily as needed for Congestion /Allergies or Cough. [facility] naproxen 500 mg tablet 11-18 00:00: 00 Yes [id number] 500mg Take 1 tablet by mouth every 8 (eight) hours as needed for Pain (scale 4-6). [facility] cyclobenzap rine 10 mg tablet 11-18 00:00: 00 Yes [id number] 10mg Take 1 tablet by mouth at bedtime as needed for Muscle Spasms. [facility] bromphenira mine-pseudo ephedrine-D M (BROMFED DM) 2-30-10 mg/5 mL syrup 11-18 00:00: 00 Yes [id number] 5mL Take 5 mL by mouth 4 (four) times daily as needed for Congestion /Allergies or Cough. [facility] naproxen 500 mg tablet 11-18 00:00: 00 Yes [id number] 500mg Take 1 tablet by mouth every 8 (eight) hours as needed for Pain (scale 4-6). [facility] cyclobenzap rine 10 mg tablet 11-18 00:00: 00 Yes [id number] 10mg Take 1 tablet by mouth at bedtime as needed for Muscle Spasms. [facility] bromphenira mine-pseudo ephedrine-D M (BROMFED DM) 2-30-10 mg/5 mL syrup 11-18 00:00: 00 Yes [id number] 5mL Take 5 mL by mouth 4 (four) times daily as needed for Congestion /Allergies or Cough. [facility] naproxen 500 mg tablet 11-18 00:00: 00 Yes [id number] 500mg Take 1 tablet by mouth every 8 (eight) hours as needed for Pain (scale 4-6). [facility] cyclobenzap rine 10 mg tablet 11-18 00:00: 00 Yes [id number] 10mg Take 1 tablet by mouth at bedtime as needed for Muscle Spasms. [facility] bromphenira mine-pseudo ephedrine-D M (BROMFED DM) 2-30-10 mg/5 mL syrup 0 11-18 00:00: 00 Yes [id number] 5mL Take 5 mL by mouth 4 (four) times daily as needed for Congestion /Allergies or Cough. [facility] bromphenira mine-pseudo ephedrine-D M (BROMFED DM) 2-30-10 mg/5 mL syrup 0 11-18 00:00: 00 Yes [id number] 5mL Take 5 mL by mouth 4 (four) times daily as needed for Congestion /Allergies or Cough. [facility] bromphenira mine-pseudo ephedrine-D M (BROMFED DM) 2-30-10 mg/5 mL syrup 0 11-18 00:00: 00 Yes [id number] 5mL Take 5 mL by mouth 4 (four) times daily as needed for Congestion /Allergies or Cough. [facility] bromphenira mine-pseudo ephedrine-D M (BROMFED DM) 2-30-10 mg/5 mL syrup 0 11-18 00:00: 00 Yes [id number] 5mL Take 5 mL by mouth 4 (four) times daily as needed for Congestion /Allergies or Cough. [facility] bromphenira mine-pseudo ephedrine-D M (BROMFED DM) 2-30-10 mg/5 mL syrup 0 11-18 00:00: 00 Yes [id number] 5mL Take 5 mL by mouth 4 (four) times daily as needed for Congestion /Allergies or Cough. [facility] bromphenira mine-pseudo ephedrine-D M (BROMFED DM) 2-30-10 mg/5 mL syrup 0 11-18 00:00: 00 Yes [id number] 5mL Take 5 mL by mouth 4 (four) times daily as needed for Congestion /Allergies or Cough. [facility] bromphenira mine-pseudo ephedrine-D M (BROMFED DM) 2-30-10 mg/5 mL syrup 2022-0 7-09 00:00: 00 Yes [id number] 5mL Take 5 mL by mouth 4 (four) times daily as needed for Congestion /Allergies or Cough. [facility] bromphenira mine-pseudo ephedrine-D M (BROMFED DM) 2-30-10 mg/5 mL syrup 2022-0 7- 00:00: 00 Yes [id number] 5mL Take 5 mL by mouth 4 (four) times daily as needed for Congestion /Allergies or Cough. [facility] bromphenira mine-pseudo ephedrine-D M (BROMFED DM) 2-30-10 mg/5 mL syrup 2022-0 7- 00:00: 00 Yes [id number] 5mL Take 5 mL by mouth 4 (four) times daily as needed for Congestion /Allergies or Cough. [facility] bromphenira mine-pseudo ephedrine-D M (BROMFED DM) 2-30-10 mg/5 mL syrup 2-0 7- 00:00: 00 Yes [id number] 5mL Take 5 mL by mouth 4 (four) times daily as needed for Congestion /Allergies or Cough. [facility] bromphenira mine-pseudo ephedrine-D M (BROMFED DM) 2-30-10 mg/5 mL syrup 2022-0 7- 00:00: 00 Yes [id number] 5mL Take 5 mL by mouth 4 (four) times daily as needed for Congestion /Allergies or Cough. [facility] bromphenira mine-pseudo ephedrine-D M (BROMFED DM) 2-30-10 mg/5 mL syrup 2022-0 7- 00:00: 00 Yes [id number] 5mL Take 5 mL by mouth 4 (four) times daily as needed for Congestion /Allergies or Cough. [facility] bromphenira mine-pseudo ephedrine-D M (BROMFED DM) 2-30-10 mg/5 mL syrup 2022-0 7- 00:00: 00 Yes [id number] 5mL Take 5 mL by mouth 4 (four) times daily as needed for Congestion /Allergies or Cough. [facility] bromphenira mine-pseudo ephedrine-D M (BROMFED DM) 2-30-10 mg/5 mL syrup 2021-0 11-18 00:00: 00 Yes [id number] 5mL Take 5 mL by mouth 4 (four) times daily as needed for Congestion /Allergies or Cough. [facility] bromphenira mine-pseudo ephedrine-D M (BROMFED DM) 2-30-10 mg/5 mL syrup 0 11-18 00:00: 00 03-24 00:00 :00 No [id number] 5mL Take 5 mL by mouth 4 (four) times daily as needed for Congestion /Allergies or Cough. [facility] bromphenira mine-pseudo ephedrine-D M (BROMFED DM) 2-30-10 mg/5 mL syrup 2021-0 11-18 00:00: 00 03-24 00:00 :00 No [id number] 5mL Take 5 mL by mouth 4 (four) times daily as needed for Congestion /Allergies or Cough. [facility] naproxen 500 mg tablet 0 11-18 00:00: 00 02-27 00:00 :00 No [id number] 500mg Take 1 tablet by mouth every 8 (eight) hours as needed for Pain (scale 4-6). [facility] cyclobenzap rine 10 mg tablet 0 11-18 00:00: 00 02-27 00:00 :00 No [id number] 10mg Take 1 tablet by mouth at bedtime as needed for Muscle Spasms. [facility] naproxen 500 mg tablet 2021-0 11-18 00:00: 00 02-27 00:00 :00 No [id number] 500mg Take 1 tablet by mouth every 8 (eight) hours as needed for Pain (scale 4-6). [facility] cyclobenzap rine 10 mg tablet 2021-0 11-18 00:00: 00 02-27 00:00 :00 No [id number] 10mg Take 1 tablet by mouth at bedtime as needed for Muscle Spasms. [facility] naproxen 500 mg tablet 0 -09 00:00: 00 02-27 00:00 :00 No [id number] 500mg Take 1 tablet by mouth every 8 (eight) hours as needed for Pain (scale 4-6). [facility] cyclobenzap rine 10 mg tablet 11-18 00:00: 00 02-27 00:00 :00 No [id number] 10mg Take 1 tablet by mouth at bedtime as needed for Muscle Spasms. [facility] naproxen 500 mg tablet 11-18 00:00: 00 02-27 00:00 :00 No [id number] 500mg Take 1 tablet by mouth every 8 (eight) hours as needed for Pain (scale 4-6). [facility] cyclobenzap rine 10 mg tablet 11-18 00:00: 00 02-27 00:00 :00 No [id number] 10mg Take 1 tablet by mouth at bedtime as needed for Muscle Spasms. [facility] naproxen 500 mg tablet 11-18 00:00: 00 02-27 00:00 :00 No [id number] 500mg Take 1 tablet by mouth every 8 (eight) hours as needed for Pain (scale 4-6). [facility] cyclobenzap rine 10 mg tablet 11-18 00:00: 00 02-27 00:00 :00 No [id number] 10mg Take 1 tablet by mouth at bedtime as needed for Muscle Spasms. [facility] ibuprofen 100 mg/5 mL oral suspension 15 00:00: 00 Yes [id number] 605mg Take 30.25 mL by mouth every 6 (six) hours as needed for Pain (scale 4-6) or Temp > 38.5 C. [facility] ibuprofen 100 mg/5 mL oral suspension 2021-0 6-15 00:00: 00 Yes [id number] 605mg Take 30.25 mL by mouth every 6 (six) hours as needed for Pain (scale 4-6) or Temp > 38.5 C. [facility] ibuprofen 100 mg/5 mL oral suspension 10-25 00:00: 00 Yes [id number] 605mg Take 30.25 mL by mouth every 6 (six) hours as needed for Pain (scale 4-6) or Temp > 38.5 C. [facility] ibuprofen 100 mg/5 mL oral suspension 10-25 00:00: 00 Yes [id number] 605mg Take 30.25 mL by mouth every 6 (six) hours as needed for Pain (scale 4-6) or Temp > 38.5 C. [facility] ibuprofen 100 mg/5 mL oral suspension 10-25 00:00: 00 Yes [id number] 605mg Take 30.25 mL by mouth every 6 (six) hours as needed for Pain (scale 4-6) or Temp > 38.5 C. [facility] ibuprofen 100 mg/5 mL oral suspension 10-25 00:00: 00 Yes [id number] 605mg Take 30.25 mL by mouth every 6 (six) hours as needed for Pain (scale 4-6) or Temp > 38.5 C. [facility] ibuprofen 100 mg/5 mL oral suspension 10-25 00:00: 00 Yes [id number] 605mg Take 30.25 mL by mouth every 6 (six) hours as needed for Pain (scale 4-6) or Temp > 38.5 C. [facility] ibuprofen 100 mg/5 mL oral suspension 10-25 00:00: 00 Yes [id number] 605mg Take 30.25 mL by mouth every 6 (six) hours as needed for Pain (scale 4-6) or Temp > 38.5 C. [facility] ibuprofen 100 mg/5 mL oral suspension 10-25 00:00: 00 Yes [id number] 605mg Take 30.25 mL by mouth every 6 (six) hours as needed for Pain (scale 4-6) or Temp > 38.5 C. [facility] ibuprofen 100 mg/5 mL oral suspension 10-25 00:00: 00 Yes [id number] 605mg Take 30.25 mL by mouth every 6 (six) hours as needed for Pain (scale 4-6) or Temp > 38.5 C. [facility] ibuprofen 100 mg/5 mL oral suspension 10-25 00:00: 00 Yes [id number] 605mg Take 30.25 mL by mouth every 6 (six) hours as needed for Pain (scale 4-6) or Temp > 38.5 C. [facility] ibuprofen 100 mg/5 mL oral suspension 10-25 00:00: 00 02-27 00:00 :00 No [id number] 605mg Take 30.25 mL by mouth every 6 (six) hours as needed for Pain (scale 4-6) or Temp > 38.5 C. [facility] ibuprofen 100 mg/5 mL oral suspension 10-25 00:00: 00 02-27 00:00 :00 No [id number] 605mg Take 30.25 mL by mouth every 6 (six) hours as needed for Pain (scale 4-6) or Temp > 38.5 C. [facility] ibuprofen 100 mg/5 mL oral suspension 10-25 00:00: 00 02-27 00:00 :00 No [id number] 605mg Take 30.25 mL by mouth every 6 (six) hours as needed for Pain (scale 4-6) or Temp > 38.5 C. [facility] ibuprofen 100 mg/5 mL oral suspension 10-25 00:00: 00 02-27 00:00 :00 No [id number] 605mg Take 30.25 mL by mouth every 6 (six) hours as needed for Pain (scale 4-6) or Temp > 38.5 C. [facility] ibuprofen 100 mg/5 mL oral suspension 10-25 00:00: 00 02-27 00:00 :00 No [id number] 605mg Take 30.25 mL by mouth every 6 (six) hours as needed for Pain (scale 4-6) or Temp > 38.5 C. [facility] acetaminoph en 160 mg/5 mL liquid 2022-0 6-15 00:00: 00 12-12 00:00 :00 No [id number] 608mg Take 19 mL by mouth every 6 (six) hours as needed for Fever. [facility] acetaminoph en 160 mg/5 mL liquid 2-0 6-15 00:00: 00 12-12 00:00 :00 No [id number] 608mg Take 19 mL by mouth every 6 (six) hours as needed for Fever. [facility] DULoxetine 60 mg capsule 2-0 -27 00:00: 00 Yes [facility] DULoxetine 60 mg capsule 2-0 27 00:00: 00 Yes [facility] DULoxetine 60 mg capsule 2-0 27 00:00: 00 Yes [facility] DULoxetine 60 mg capsule 2-0 27 00:00: 00 Yes [facility] DULoxetine 60 mg capsule 2-0 27 00:00: 00 Yes [facility] DULoxetine 60 mg capsule 2-0 27 00:00: 00 Yes [facility] DULoxetine 60 mg capsule 2-0 27 00:00: 00 Yes [facility] DULoxetine 60 mg capsule 2021-0 27 00:00: 00 Yes [facility] DULoxetine 60 mg capsule 2-0 27 00:00: 00 Yes [facility] DULoxetine 60 mg capsule 2-0 27 00:00: 00 Yes [facility] DULoxetine 60 mg capsule 2-0 27 00:00: 00 Yes [facility] DULoxetine 60 mg capsule 2-0 27 00:00: 00 02-27 00:00 :00 No [facility] DULoxetine 60 mg capsule 2-0 27 00:00: 00 02-27 00:00 :00 No [facility] DULoxetine 60 mg capsule 2-0 27 00:00: 00 02-27 00:00 :00 No [facility] DULoxetine 60 mg capsule 0 10-06 00:00: 00 02-27 00:00 :00 No [facility] traZODone 50 mg tablet 10-06 00:00: 00 12-12 00:00 :00 No [facility] mometasone 50 mcg/actuati on nasal spray 0 09-28 00:00: 00 Yes [id number] 1{spray } Use 1 [place] in each nostril 2 (two) times daily. [facility] mometasone 50 mcg/actuati on nasal spray 0 09-28 00:00: 00 Yes [id number] 1{spray } Use 1 [place] in each nostril 2 (two) times daily. [facility] mometasone 50 mcg/actuati on nasal spray 0 09-28 00:00: 00 Yes [id number] 1{spray } Use 1 [place] in each nostril 2 (two) times daily. [facility] mometasone 50 mcg/actuati on nasal spray 0 09-28 00:00: 00 Yes [id number] 1{spray } Use 1 [place] in each nostril 2 (two) times daily. [facility] mometasone 50 mcg/actuati on nasal spray 0 19 00:00: 00 Yes [id number] 1{spray } Use 1 [place] in each nostril 2 (two) times daily. [facility] mometasone 50 mcg/actuati on nasal spray 0 09-28 00:00: 00 Yes [id number] 1{spray } Use 1 [place] in each nostril 2 (two) times daily. [facility] mometasone 50 mcg/actuati on nasal spray 0 19 00:00: 00 Yes [id number] 1{spray } Use 1 [place] in each nostril 2 (two) times daily. [facility] mometasone 50 mcg/actuati on nasal spray 2021-0 -19 00:00: 00 Yes [id number] 1{spray } Use 1 [place] in each nostril 2 (two) times daily. [facility] mometasone 50 mcg/actuati on nasal spray 2021-0 5-19 00:00: 00 Yes [id number] 1{spray } Use 1 [place] in each nostril 2 (two) times daily. [facility] mometasone 50 mcg/actuati on nasal spray 2021-0 5-19 00:00: 00 Yes [id number] 1{spray } Use 1 [place] in each nostril 2 (two) times daily. [facility] mometasone 50 mcg/actuati on nasal spray 2021-0 5-19 00:00: 00 Yes [id number] 1{spray } Use 1 [place] in each nostril 2 (two) times daily. [facility] mometasone 50 mcg/actuati on nasal spray 2021-0 5-19 00:00: 00 02-27 00:00 :00 No [id number] 1{spray } Use 1 [place] in each nostril 2 (two) times daily. [facility] mometasone 50 mcg/actuati on nasal spray 2021-0 5-19 00:00: 00 02-27 00:00 :00 No [id number] 1{spray } Use 1 [place] in each nostril 2 (two) times daily. [facility] mometasone 50 mcg/actuati on nasal spray 2021-0 5-19 00:00: 00 02-27 00:00 :00 No [id number] 1{spray } Use 1 [place] in each nostril 2 (two) times daily. [facility] mometasone 50 mcg/actuati on nasal spray 2021-0 5-19 00:00: 00 02-27 00:00 :00 No [id number] 1{spray } Use 1 [place] in each nostril 2 (two) times daily. [facility] mometasone 50 mcg/actuati on nasal spray 2021-0 5-19 00:00: 00 02-27 00:00 :00 No [id number] 1{spray } Use 1 [place] in each nostril 2 (two) times daily. [facility] cetirizine (ZYRTEC) 10 mg tablet 2021-0 5-16 00:00: 00 Yes [id number] 10mg Take 1 tablet by mouth daily. [facility] cetirizine (ZYRTEC) 10 mg tablet 2021-0 5-16 00:00: 00 Yes [id number] 10mg Take 1 tablet by mouth daily. [facility] cetirizine (ZYRTEC) 10 mg tablet 2021-0 5-16 00:00: 00 Yes [id number] 10mg Take 1 tablet by mouth daily. [facility] cetirizine (ZYRTEC) 10 mg tablet 2021-0 5-16 00:00: 00 Yes [id number] 10mg Take 1 tablet by mouth daily. [facility] cetirizine (ZYRTEC) 10 mg tablet 2021-0 5-16 00:00: 00 Yes [id number] 10mg Take 1 tablet by mouth daily. [facility] cetirizine (ZYRTEC) 10 mg tablet 2021-0 5-16 00:00: 00 Yes [id number] 10mg Take 1 tablet by mouth daily. [facility] cetirizine (ZYRTEC) 10 mg tablet 2021-0 5-16 00:00: 00 Yes [id number] 10mg Take 1 tablet by mouth daily. [facility] cetirizine (ZYRTEC) 10 mg tablet 2021-0 5-16 00:00: 00 Yes [id number] 10mg Take 1 tablet by mouth daily. [facility] cetirizine (ZYRTEC) 10 mg tablet 2021-0 5-16 00:00: 00 Yes [id number] 10mg Take 1 tablet by mouth daily. [facility] cetirizine (ZYRTEC) 10 mg tablet 2-0 5-16 00:00: 00 Yes [id number] 10mg Take 1 tablet by mouth daily. [facility] cetirizine (ZYRTEC) 10 mg tablet 2-0 5-16 00:00: 00 Yes [id number] 10mg Take 1 tablet by mouth daily. [facility] cetirizine (ZYRTEC) 10 mg tablet 2021-0 5-16 00:00: 00 02-27 00:00 :00 No [id number] 10mg Take 1 tablet by mouth daily. [facility] cetirizine (ZYRTEC) 10 mg tablet 2021-0 16 00:00: 00 02-27 00:00 :00 No [id number] 10mg Take 1 tablet by mouth daily. [facility] cetirizine (ZYRTEC) 10 mg tablet 2021-0 16 00:00: 00 02-27 00:00 :00 No [id number] 10mg Take 1 tablet by mouth daily. [facility] cetirizine (ZYRTEC) 10 mg tablet 2021-0 16 00:00: 00 02-27 00:00 :00 No [id number] 10mg Take 1 tablet by mouth daily. [facility] cetirizine (ZYRTEC) 10 mg tablet 2021-0 16 00:00: 00 02-27 00:00 :00 No [id number] 10mg Take 1 tablet by mouth daily. [facility] DULoxetine 30 mg capsule 2021-0 09-18 00:00: 00 Yes [facility] gabapentin 300 mg capsule 2021-0 - 00:00: 00 Yes [facility] ondansetron 4 mg tablet 2021-0 09-18 00:00: 00 Yes [facility] DULoxetine 30 mg capsule 2021-0 - 00:00: 00 Yes [facility] gabapentin 300 mg capsule 2-0 - 00:00: 00 Yes [facility] ondansetron 4 mg tablet 2021-0 - 00:00: 00 Yes [facility] DULoxetine 30 mg capsule 2-0 - 00:00: 00 Yes [facility] gabapentin 300 mg capsule 2-0 - 00:00: 00 Yes [facility] ondansetron 4 mg tablet 2-0 - 00:00: 00 Yes [facility] DULoxetine 30 mg capsule 2-0 09-18 00:00: 00 Yes [facility] gabapentin 300 mg capsule 2-0 09-18 00:00: 00 Yes [facility] ondansetron 4 mg tablet 2-0 09-18 00:00: 00 Yes [facility] DULoxetine 30 mg capsule 2-0 09-18 00:00: 00 Yes [facility] gabapentin 300 mg capsule 2-0 09-18 00:00: 00 Yes [facility] ondansetron 4 mg tablet 2-0 09-18 00:00: 00 Yes [facility] DULoxetine 30 mg capsule 2-0 09-18 00:00: 00 Yes [facility] gabapentin 300 mg capsule 2-0 09-18 00:00: 00 Yes [facility] ondansetron 4 mg tablet 2-0 09-18 00:00: 00 Yes [facility] DULoxetine 30 mg capsule 2-0 09-18 00:00: 00 Yes [facility] gabapentin 300 mg capsule 2-0 09-18 00:00: 00 Yes [facility] ondansetron 4 mg tablet 2-0 09-18 00:00: 00 Yes [facility] DULoxetine 30 mg capsule 2-0 09-18 00:00: 00 Yes [facility] gabapentin 300 mg capsule 2-0 09-18 00:00: 00 Yes [facility] ondansetron 4 mg tablet 2-0 09-18 00:00: 00 Yes [facility] DULoxetine 30 mg capsule 2-0 09-18 00:00: 00 Yes [facility] gabapentin 300 mg capsule 2-0 09-18 00:00: 00 Yes [facility] ondansetron 4 mg tablet 2-0 09-18 00:00: 00 Yes [facility] DULoxetine 30 mg capsule 2-0 09-18 00:00: 00 Yes [facility] gabapentin 300 mg capsule 2-0 09-18 00:00: 00 Yes [facility] ondansetron 4 mg tablet 2-0 - 00:00: 00 Yes [facility] DULoxetine 30 mg capsule 2-0 - 00:00: 00 Yes [facility] gabapentin 300 mg capsule 2021-0 - 00:00: 00 Yes [facility] ondansetron 4 mg tablet 2021-0 09-18 00:00: 00 Yes [facility] DULoxetine 30 mg capsule 2-0 - 00:00: 00 02-27 00:00 :00 No [facility] gabapentin 300 mg capsule 2021-0 09-18 00:00: 00 02-27 00:00 :00 No [facility] ondansetron 4 mg tablet 2021-0 09-18 00:00: 00 02-27 00:00 :00 No [facility] DULoxetine 30 mg capsule 2021-0 09-18 00:00: 00 02-27 00:00 :00 No [facility] gabapentin 300 mg capsule 2021-0 09-18 00:00: 00 02-27 00:00 :00 No [facility] ondansetron 4 mg tablet 2021-0 09-18 00:00: 00 02-27 00:00 :00 No [facility] DULoxetine 30 mg capsule 2021-0 09-18 00:00: 00 02-27 00:00 :00 No [facility] gabapentin 300 mg capsule 2021-0 09-18 00:00: 00 02-27 00:00 :00 No [facility] ondansetron 4 mg tablet 2021-0 09-18 00:00: 00 02-27 00:00 :00 No [facility] DULoxetine 30 mg capsule 2021-0 09-18 00:00: 00 02-27 00:00 :00 No [facility] gabapentin 300 mg capsule 2021-0 - 00:00: 00 02-27 00:00 :00 No [facility] ondansetron 4 mg tablet 0 09-18 00:00: 00 02-27 00:00 :00 No [facility] DULoxetine 30 mg capsule 09-18 00:00: 00 02-27 00:00 :00 No [facility] gabapentin 300 mg capsule 09-18 00:00: 00 02-27 00:00 :00 No [facility] ondansetron 4 mg tablet 0 09-18 00:00: 00 02-27 00:00 :00 No [facility] amLODIPine 5 mg tablet 0 09-01 00:00: 00 Yes [facility] amLODIPine 5 mg tablet 0 09-01 00:00: 00 Yes 5mg Take 5 mg by mouth. [facility] amLODIPine 5 mg tablet 0 09-01 00:00: 00 Yes [facility] amLODIPine 5 mg tablet 0 09-01 00:00: 00 Yes 5mg Take 5 mg by mouth. [facility] amLODIPine 5 mg tablet 2021-0 09-01 00:00: 00 Yes [facility] amLODIPine 5 mg tablet 0 09-01 00:00: 00 Yes 5mg Take 5 mg by mouth. [facility] amLODIPine 5 mg tablet 0 09-01 00:00: 00 Yes [facility] amLODIPine 5 mg tablet 0 09-01 00:00: 00 Yes 5mg Take 5 mg by mouth. [facility] [place] [facility] amLODIPine 5 mg tablet 0 09-01 00:00: 00 Yes [facility] amLODIPine 5 mg tablet 0 09-01 00:00: 00 Yes 5mg Take 5 mg by mouth. [facility] amLODIPine 5 mg tablet 0 09-01 00:00: 00 Yes [facility] amLODIPine 5 mg tablet 0 09-01 00:00: 00 Yes 5mg Take 5 mg by mouth. [facility] amLODIPine 5 mg tablet 0 09-01 00:00: 00 Yes [facility] amLODIPine 5 mg tablet 0 09-01 00:00: 00 Yes 5mg Take 5 mg by mouth. [facility] amLODIPine 5 mg tablet 0 09-01 00:00: 00 Yes [facility] amLODIPine 5 mg tablet 0 09-01 00:00: 00 Yes 5mg Take 5 mg by mouth. [facility] amLODIPine 5 mg tablet 0 09-01 00:00: 00 Yes [facility] amLODIPine 5 mg tablet 0 09-01 00:00: 00 Yes 5mg Take 5 mg by mouth. [facility] amLODIPine 5 mg tablet 0 09-01 00:00: 00 Yes [facility] amLODIPine 5 mg tablet 0 09-01 00:00: 00 Yes 5mg Take 5 mg by mouth. [facility] amLODIPine 5 mg tablet 0 09-01 00:00: 00 Yes [facility] amLODIPine 5 mg tablet 0 09-01 00:00: 00 Yes 5mg Take 5 mg by mouth. [facility] amLODIPine 5 mg tablet 0 09-01 00:00: 00 02-27 00:00 :00 No [facility] amLODIPine 5 mg tablet 0 09-01 00:00: 00 02-27 00:00 :00 No 5mg Take 5 mg by mouth. [facility] amLODIPine 5 mg tablet 0 09-01 00:00: 00 02-27 00:00 :00 No [facility] amLODIPine 5 mg tablet 0 09-01 00:00: 00 02-27 00:00 :00 No 5mg Take 5 mg by mouth. [facility] amLODIPine 5 mg tablet 0 09-01 00:00: 00 02-27 00:00 :00 No [facility] amLODIPine 5 mg tablet 0 09-01 00:00: 00 02-27 00:00 :00 No 5mg Take 5 mg by mouth. [facility] amLODIPine 5 mg tablet 2021-0 4-22 00:00: 00 02-27 00:00 :00 No [facility] amLODIPine 5 mg tablet 0 422 00:00: 00 02-27 00:00 :00 No 5mg Take 5 mg by mouth. [facility] amLODIPine 5 mg tablet 0 4-22 00:00: 00 02-27 00:00 :00 No [facility] amLODIPine 5 mg tablet 0 4 00:00: 00 02-27 00:00 :00 No 5mg Take 5 mg by mouth. [facility] buPROPion XL 150 mg 24 hr tablet 2021-0 4-20 00:00: 00 Yes [facility] buPROPion XL 150 mg 24 hr tablet 2021-0 4-20 00:00: 00 Yes [facility] buPROPion XL 150 mg 24 hr tablet 2021-0 4-20 00:00: 00 Yes [facility] buPROPion XL 150 mg 24 hr tablet 2021-0 4-20 00:00: 00 Yes [facility] buPROPion XL 150 mg 24 hr tablet 2021-0 4-20 00:00: 00 Yes [facility] buPROPion XL 150 mg 24 hr tablet 2021-0 4-20 00:00: 00 Yes [facility] buPROPion XL 150 mg 24 hr tablet 2021-0 4-20 00:00: 00 Yes [facility] buPROPion XL 150 mg 24 hr tablet 2-0 4-20 00:00: 00 Yes [facility] buPROPion XL 150 mg 24 hr tablet 2-0 4-20 00:00: 00 Yes [facility] buPROPion XL 150 mg 24 hr tablet 2021-0 4-20 00:00: 00 Yes [facility] buPROPion XL 150 mg 24 hr tablet 2021-0 4-20 00:00: 00 Yes [facility] buPROPion XL 150 mg 24 hr tablet 2021-0 4-20 00:00: 00 08-31 04:59 :00 No 150mg Take 150 mg by mouth. [facility] buPROPion XL 150 mg 24 hr tablet 2021-0 4-20 00:00: 00 08-31 04:59 :00 No 150mg Take 150 mg by mouth. [facility] [place] [facility] buPROPion XL 150 mg 24 hr tablet 2021-0 4-20 00:00: 00 08-31 04:59 :00 No 150mg Take 150 mg by mouth. [facility] buPROPion XL 150 mg 24 hr tablet 2021-0 4-20 00:00: 00 08-31 04:59 :00 No 150mg Take 150 mg by mouth. [facility] buPROPion XL 150 mg 24 hr tablet 2021-0 4-20 00:00: 00 08-31 04:59 :00 No 150mg Take 150 mg by mouth. [facility] buPROPion XL 150 mg 24 hr tablet 2021-0 4-20 00:00: 00 08-31 04:59 :00 No 150mg Take 150 mg by mouth. [facility] buPROPion XL 150 mg 24 hr tablet 2021-0 4-20 00:00: 00 08-31 04:59 :00 No 150mg Take 150 mg by mouth. [facility] buPROPion XL 150 mg 24 hr tablet 2021-0 4-20 00:00: 00 08-31 04:59 :00 No 150mg Take 150 mg by mouth. [facility] buPROPion XL 150 mg 24 hr tablet 2021-0 4-20 00:00: 00 08-31 04:59 :00 No 150mg Take 150 mg by mouth. [facility] buPROPion XL 150 mg 24 hr tablet 2-0 4-20 00:00: 00 08-31 04:59 :00 No 150mg Take 150 mg by mouth. [facility] buPROPion XL 150 mg 24 hr tablet 2021-0 4-20 00:00: 00 08-31 04:59 :00 No 150mg Take 150 mg by mouth. [facility] buPROPion XL 150 mg 24 hr tablet 0 4-20 00:00: 00 02-27 00:00 :00 No [facility] buPROPion XL 150 mg 24 hr tablet 0 4-20 00:00: 00 02-27 00:00 :00 No 150mg Take 150 mg by mouth. [facility] buPROPion XL 150 mg 24 hr tablet 0 4-20 00:00: 00 02-27 00:00 :00 No [facility] buPROPion XL 150 mg 24 hr tablet 4-20 00:00: 00 02-27 00:00 :00 No 150mg Take 150 mg by mouth. [facility] buPROPion XL 150 mg 24 hr tablet 0 4-20 00:00: 00 02-27 00:00 :00 No [facility] buPROPion XL 150 mg 24 hr tablet 0 4-20 00:00: 00 02-27 00:00 :00 No 150mg Take 150 mg by mouth. [facility] buPROPion XL 150 mg 24 hr tablet 0 4-20 00:00: 00 02-27 00:00 :00 No [facility] buPROPion XL 150 mg 24 hr tablet 0 4-20 00:00: 00 02-27 00:00 :00 No 150mg Take 150 mg by mouth. [facility] buPROPion XL 150 mg 24 hr tablet 0 4-20 00:00: 00 02-27 00:00 :00 No [facility] buPROPion XL 150 mg 24 hr tablet 0 4-20 00:00: 00 02-27 00:00 :00 No 150mg Take 150 mg by mouth. [facility] proMETHazin e 25 mg tablet 4-05 00:00: 00 09-12 00:00 :00 No [id number] 25mg Take 1 tablet by mouth every 6 (six) hours as needed for Nausea and Vomiting (N/V). [facility] traMADoL 50 mg tablet 08-15 00:00: 00 09-12 00:00 :00 No [id number] 50mg Take 1 tablet by mouth every 6 (six) hours as needed (pain). Indication s: acute pain [facility] proMETHazin e 25 mg tablet 08-15 00:00: 00 09-12 00:00 :00 No [id number] 25mg Take 1 tablet by mouth every 6 (six) hours as needed for Nausea and Vomiting (N/V). [facility] traMADoL 50 mg tablet 08-15 00:00: 00 09-12 00:00 :00 No [id number] 50mg Take 1 tablet by mouth every 6 (six) hours as needed (pain). Indication s: acute pain [facility] proMETHazin e 25 mg tablet 08-15 00:00: 09-12 00:00 :00 No [id number] 25mg Take 1 tablet by mouth every 6 (six) hours as needed for Nausea and Vomiting (N/V). [facility] traMADoL 50 mg tablet 08-15 00:00: 00 09-12 00:00 :00 No [id number] 50mg Take 1 tablet by mouth every 6 (six) hours as needed (pain). Indication s: acute pain [facility] cyclobenzap rine 10 mg tablet 08-07 00:00: 00 08-22 04:59 :00 No [id number] 10mg Take 1 tablet by mouth 3 (three) times daily for 14 days. [facility] ibuprofen 800 mg tablet 08-07 00:00: 00 08-22 04:59 :00 No [id number] 800mg Take 1 tablet by mouth every 6 (six) hours as needed for Pain (scale 1-3) for up to 14 days. [facility] diclofenac 75 mg EC tablet 2022-0 3-22 00:00: 00 09-12 00:00 :00 No [facility] orphenadrin e 100 mg SR tablet 0 3- 00:00: 00 09-12 00:00 :00 No [facility] diclofenac 75 mg EC tablet 3- 00:00: 00 09-12 00:00 :00 No [facility] orphenadrin e 100 mg SR tablet 08-01 00:00: 00 09-12 00:00 :00 No [facility] divalproex 125 mg EC tablet 3-11 00:00: 00 09-12 00:00 :00 No [id number] 125mg Take 1 tablet by mouth every 12 (twelve) hours. [facility] divalproex Sprinkles 125 mg SPRINKLE capsule 0 3-11 00:00: 00 09-12 00:00 :00 No [facility] divalproex 125 mg EC tablet 0 3-11 00:00: 00 09-12 00:00 :00 No [id number] 125mg Take 1 tablet by mouth every 12 (twelve) hours. [facility] divalproex Sprinkles 125 mg SPRINKLE capsule 0 3-11 00:00: 00 09-12 00:00 :00 No [facility] divalproex 125 mg EC tablet 0 3-11 00:00: 00 09-12 00:00 :00 No [id number] 125mg Take 1 tablet by mouth every 12 (twelve) hours. [facility] ibuprofen 600 mg tablet 3-07 00:00: 00 08-01 04:59 :00 No [id number] 600mg Take 1 tablet by mouth every 6 (six) hours as needed for Temp > 38.5 C for up to 14 days. [facility] acetaminoph en-codeine 300-30 mg tablet 0 1-30 00:00: 00 09-12 00:00 :00 No TAKE 1 TABLET BY MOUTH EVERY 4 HOURS NEEDED FOR PAIN FOR 2 DAYS [facility] acetaminoph en-codeine 300-30 mg tablet 06-11 00:00: 00 09-12 00:00 :00 No TAKE 1 TABLET BY MOUTH EVERY 4 HOURS NEEDED FOR PAIN FOR 2 DAYS [facility] acetaminoph en-codeine 300-30 mg tablet 06-11 00:00: 09-12 00:00 :00 No TAKE 1 TABLET BY MOUTH EVERY 4 HOURS NEEDED FOR PAIN FOR 2 DAYS [facility] fluticasone propionate 110 mcg/actuati on inhaler 05-31 00:00: 00 09-28 00:00 :00 No [id number] 2{puff} Inhale 2 Puffs every 12 (twelve) hours. [facility] fluticasone propionate 110 mcg/actuati on inhaler 05-31 00:00: 00 09-28 00:00 :00 No [id number] 2{puff} Inhale 2 Puffs every 12 (twelve) hours. [facility] fluticasone propionate 110 mcg/actuati on inhaler 05-31 00:00: 00 09-28 00:00 :00 No [id number] 2{puff} Inhale 2 Puffs every 12 (twelve) hours. [facility] fluticasone propionate 110 mcg/actuati on inhaler 05-31 00:00: 00 09-28 00:00 :00 No [id number] 2{puff} Inhale 2 Puffs every 12 (twelve) hours. [facility] benzonatate (TESSALON PERLES) 100 mg capsule 05-25 00:00: 00 09-25 00:00 :00 No [id number] 100mg Take 1 capsule by mouth every 8 (eight) hours as needed for Cough. [facility] benzonatate (TESSALON PERLES) 100 mg capsule 05-25 00:00: 00 09-25 00:00 :00 No [id number] 100mg Take 1 capsule by mouth every 8 (eight) hours as needed for Cough. [facility] benzonatate (TESSALON PERLES) 100 mg capsule 05-25 00:00: 00 09-25 00:00 :00 No [id number] 100mg Take 1 capsule by mouth every 8 (eight) hours as needed for Cough. [facility] benzonatate (TESSALON PERLES) 100 mg capsule 05-25 00:00: 00 09-25 00:00 :00 No [id number] 100mg Take 1 capsule by mouth every 8 (eight) hours as needed for Cough. [facility] carvediloL 25 mg tablet 2020-05 00:00: 00 Yes 25mg Take 1 tablet by mouth 2 (two) times daily with meals. [facility] losartan 50 mg tablet 2020-05 00:00: 00 Yes 50mg Take 1 tablet by mouth 2 (two) times daily. [facility] carvediloL 25 mg tablet 2020-05 00:00: 00 Yes 25mg Take 1 tablet by mouth 2 (two) times daily with meals. [facility] losartan 50 mg tablet 2020-05 00:00: 00 Yes 50mg Take 1 tablet by mouth 2 (two) times daily. [facility] carvediloL 25 mg tablet 2020-05 00:00: 00 Yes 25mg Take 1 tablet by mouth 2 (two) times daily with meals. [facility] losartan 50 mg tablet 2020-05 00:00: 00 Yes 50mg Take 1 tablet by mouth 2 (two) times daily. [facility] carvediloL 25 mg tablet 2020-05 00:00: 00 Yes 25mg Take 1 tablet by mouth 2 (two) times daily with meals. [facility] losartan 50 mg tablet 2020-05 00:00: 00 Yes 50mg Take 1 tablet by mouth 2 (two) times daily. [facility] carvediloL 25 mg tablet 2020-05 00:00: 00 Yes 25mg Take 1 tablet by mouth 2 (two) times daily with meals. [facility] losartan 50 mg tablet 2020-05 00:00: 00 Yes 50mg Take 1 tablet by mouth 2 (two) times daily. [facility] carvediloL 25 mg tablet 2020-05 00:00: 00 Yes 25mg Take 1 tablet by mouth 2 (two) times daily with meals. [facility] losartan 50 mg tablet 2020-05 00:00: 00 Yes 50mg Take 1 tablet by mouth 2 (two) times daily. [facility] carvediloL 25 mg tablet 2020-05 00:00: 00 Yes 25mg Take 1 tablet by mouth 2 (two) times daily with meals. [facility] losartan 50 mg tablet 2020-05 00:00: 00 Yes 50mg Take 1 tablet by mouth 2 (two) times daily. [facility] carvediloL 25 mg tablet 2020-05 00:00: 00 Yes 25mg Take 1 tablet by mouth 2 (two) times daily with meals. [facility] losartan 50 mg tablet 2020-05 00:00: 00 Yes 50mg Take 1 tablet by mouth 2 (two) times daily. [facility] carvediloL 25 mg tablet 2020-05 00:00: 00 Yes 25mg Take 1 tablet by mouth 2 (two) times daily with meals. [facility] losartan 50 mg tablet 2020-05 00:00: 00 Yes 50mg Take 1 tablet by mouth 2 (two) times daily. [facility] carvediloL 25 mg tablet 2020-05 00:00: 00 Yes 25mg Take 1 tablet by mouth 2 (two) times daily with meals. [facility] losartan 50 mg tablet 2020-05 00:00: 00 Yes 50mg Take 1 tablet by mouth 2 (two) times daily. [facility] carvediloL 25 mg tablet 2020-05 00:00: 00 Yes 25mg Take 1 tablet by mouth 2 (two) times daily with meals. [facility] losartan 50 mg tablet 2020-05 2 00:00: 00 Yes 50mg Take 1 tablet by mouth 2 (two) times daily. [facility] carvediloL 25 mg tablet 2020-05 2 00:00: 00 02-27 00:00 :00 No 25mg Take 1 tablet by mouth 2 (two) times daily with meals. [facility] losartan 50 mg tablet 2020-05 2 00:00: 00 02-27 00:00 :00 No 50mg Take 1 tablet by mouth 2 (two) times daily. [facility] carvediloL 25 mg tablet 2020-05 00:00: 00 02-27 00:00 :00 No 25mg Take 1 tablet by mouth 2 (two) times daily with meals. [facility] losartan 50 mg tablet 2020-05 00:00: 00 02-27 00:00 :00 No 50mg Take 1 tablet by mouth 2 (two) times daily. [facility] carvediloL 25 mg tablet 2020-05 2 00:00: 00 02-27 00:00 :00 No 25mg Take 1 tablet by mouth 2 (two) times daily with meals. [facility] losartan 50 mg tablet 2020-05 2 00:00: 00 02-27 00:00 :00 No 50mg Take 1 tablet by mouth 2 (two) times daily. [facility] carvediloL 25 mg tablet 2020-05 2 00:00: 00 02-27 00:00 :00 No 25mg Take 1 tablet by mouth 2 (two) times daily with meals. [facility] losartan 50 mg tablet 2020-05 2 00:00: 00 02-27 00:00 :00 No 50mg Take 1 tablet by mouth 2 (two) times daily. [facility] carvediloL 25 mg tablet 2020-05 2 00:00: 00 02-27 00:00 :00 No 25mg Take 1 tablet by mouth 2 (two) times daily with meals. [facility] losartan 50 mg tablet 2020-05 2-30 00:00: 00 02-27 00:00 :00 No 50mg Take 1 tablet by mouth 2 (two) times daily. [facility] carvediloL 25 mg tablet 2020-05 2-30 00:00: 00 02-27 00:00 :00 No 25mg Take 1 tablet by mouth 2 (two) times daily with meals. [facility] losartan 50 mg tablet 2020-05 230 00:00: 00 02-27 00:00 :00 No 50mg Take 1 tablet by mouth 2 (two) times daily. [facility] carvediloL 25 mg tablet 2020-05 230 00:00: 00 02-27 00:00 :00 No 25mg Take 1 tablet by mouth 2 (two) times daily with meals. [facility] losartan 50 mg tablet 2020-05 230 00:00: 00 02-27 00:00 :00 No 50mg Take 1 tablet by mouth 2 (two) times daily. [facility] carvediloL 25 mg tablet 2020-05 230 00:00: 00 02-27 00:00 :00 No 25mg Take 1 tablet by mouth 2 (two) times daily with meals. [facility] losartan 50 mg tablet 2020-05 230 00:00: 00 02-27 00:00 :00 No 50mg Take 1 tablet by mouth 2 (two) times daily. [facility] carvediloL 25 mg tablet 2020-05 2-30 00:00: 00 02-27 00:00 :00 No 25mg Take 1 tablet by mouth 2 (two) times daily with meals. [facility] losartan 50 mg tablet 2020-05 2-30 00:00: 00 02-27 00:00 :00 No 50mg Take 1 tablet by mouth 2 (two) times daily. [facility] carvediloL 25 mg tablet 2020-05 230 00:00: 00 02-27 00:00 :00 No 25mg Take 1 tablet by mouth 2 (two) times daily with meals. [facility] losartan 50 mg tablet 2020-05 2 00:00: 00 02-27 00:00 :00 No 50mg Take 1 tablet by mouth 2 (two) times daily. [facility] proMETHazin e 25 mg tablet 2020-05 00:00: 00 09-12 00:00 :00 No [facility] proMETHazin e 25 mg tablet 2020-05 00:00: 00 09-12 00:00 :00 No [facility] proMETHazin e 25 mg tablet 2020-05 00:00: 00 09-12 00:00 :00 No [facility] methocarbam oL (ROBAXIN) 500 mg tablet 2020-05 00:00: 00 05-25 00:00 :00 No [id number] 500mg Take 1 tablet by mouth every 6 (six) hours as needed (MUSCLE SPASM). [facility] vitamin B-12 (VITAMIN B-12) 500 mcg tablet 2020-05 00:00: 00 09-12 00:00 :00 No [id number] 500ug Take 1 tablet by mouth daily. [facility] vitamin B-12 (VITAMIN B-12) 500 mcg tablet 2020-05 00:00: 00 09-12 00:00 :00 No [id number] 500ug Take 1 tablet by mouth daily. [facility] vitamin B-12 (VITAMIN B-12) 500 mcg tablet 2020-05 00:00: 00 09-12 00:00 :00 No [id number] 500ug Take 1 tablet by mouth daily. [facility] vitamin B-12 (VITAMIN B-12) 500 mcg tablet 2020-05 00:00: 00 09-12 00:00 :00 No [id number] 500ug Take 1 tablet by mouth daily. [facility] vitamin B-12 (VITAMIN B-12) 500 mcg tablet 2020-05 00:00: 00 09-12 00:00 :00 No [id number] 500ug Take 1 tablet by mouth daily. [facility] vitamin B-12 (VITAMIN B-12) 500 mcg tablet 2020-05 00:00: 00 09-12 00:00 :00 No [id number] 500ug Take 1 tablet by mouth daily. [facility] vitamin B-12 (VITAMIN B-12) 500 mcg tablet 2020-05 00:00: 00 09-12 00:00 :00 No [id number] 500ug Take 1 tablet by mouth daily. [facility] methylPREDN ISolone 4 mg tablets 2020-05 00:00: 00 05-25 00:00 :00 No [id number] Follow package directions [facility] methylPREDN ISolone 4 mg tablets 2020-05 00:00: 00 05-25 00:00 :00 No [id number] Follow package directions [facility] methylPREDN ISolone 4 mg tablets 2020-05 00:00: 00 05-25 00:00 :00 No [id number] Follow package directions [facility] fluticasone propion-chel meteroL 115-21 mcg/actuati on inhaler 02-09 00:00: 00 05-25 00:00 :00 No [id number] 2{puff} Inhale 2 Puffs 2 (two) times daily. Rinse mouth after each use. [facility] albuterol 2.5 mg /3 mL (0.083 %) nebulizer solution 02-09 00:00: 00 05-25 00:00 :00 No [id number] 2.5mg Inhale 3 mL every 6 (six) hours as needed for Wheezing or Shortness of Breath. [facility] fluticasone propion-chel meteroL 115-21 mcg/actuati on inhaler 02-09 00:00: 00 05-25 00:00 :00 No [id number] 2{puff} Inhale 2 Puffs 2 (two) times daily. Rinse mouth after each use. [facility] 2.5 mg /3 mL (0.083 %) nebulizer solution 02-09 00:00: 00 05-25 00:00 :00 No [id number] 2.5mg Inhale 3 mL every 6 (six) hours as needed for Wheezing or Shortness of Breath. [facility] fluticasone propion-chel meteroL 115-21 mcg/actuati on inhaler 02-09 00:00: 00 05-25 00:00 :00 No [id number] 2{puff} Inhale 2 Puffs 2 (two) times daily. Rinse mouth after each use. [facility] albuterol 2.5 mg /3 mL (0.083 %) nebulizer solution 02-09 00:00: 05-25 00:00 :00 No [id number] 2.5mg Inhale 3 mL every 6 (six) hours as needed for Wheezing or Shortness of Breath. [facility] fluticasone propion-chel meteroL 115-21 mcg/actuati on inhaler 02-09 00:00: 00 05-25 00:00 :00 No [id number] 2{puff} Inhale 2 Puffs 2 (two) times daily. Rinse mouth after each use. [facility] albuterol 2.5 mg /3 mL (0.083 %) nebulizer solution 02-09 00:00: 00 05-25 00:00 :00 No [id number] 2.5mg Inhale 3 mL every 6 (six) hours as needed for Wheezing or Shortness of Breath. [facility] methocarbam oL (ROBAXIN) 500 mg tablet 02-09 00:00: 00 05-02 00:00 :00 No [id number] 500mg Take 1 tablet by mouth every 6 (six) hours as needed (MUSCLE SPASM). [facility] methocarbam oL (ROBAXIN) 500 mg tablet 02-09 00:00: 00 05-02 00:00 :00 No [id number] 500mg Take 1 tablet by mouth every 6 (six) hours as needed (MUSCLE SPASM). [facility] bromphenira mine-pseudo ephedrine-D M (BROMFED DM) 2-30-10 mg/5 mL syrup 01-31 00:00: 00 02-09 00:00 :00 No [id number] 5mL Take 5 mL by mouth 4 (four) times daily as needed for Cough. [facility] methylPREDN ISolone (MEDROL, ANABELA,) 4 mg tablets 01-20 00:00: 00 02-09 00:00 :00 No [id number] Take by mouth SEE-INSTRU CTIONS. follow package directions [facility] methylPREDN ISolone (MEDROL, ANABELA,) 4 mg tablets 01-20 00:00: 00 02-09 00:00 :00 No [id number] Take by mouth SEE-INSTRU CTIONS. follow package directions [facility] methylPREDN ISolone (MEDROL, ANABELA,) 4 mg tablets 01-20 00:00: 00 02-09 00:00 :00 No [id number] Take by mouth SEE-INSTRU CTIONS. follow package directions [facility] albuterol 90 mcg/actuati on inhaler 01-12 00:00: 00 05-25 00:00 :00 No [id number] 2{puff} Inhale 2 Puffs every 4 (four) hours as needed for Wheezing or Shortness of Breath. [facility] albuterol 90 mcg/actuati on inhaler 01-12 00:00: 00 05-25 00:00 :00 No [id number] 2{puff} Inhale 2 Puffs every 4 (four) hours as needed for Wheezing or Shortness of Breath. [facility] albuterol 90 mcg/actuati on inhaler 01-12 00:00: 05-25 00:00 :00 No [id number] 2{puff} Inhale 2 Puffs every 4 (four) hours as needed for Wheezing or Shortness of Breath. [facility] 90 mcg/actuati on inhaler 01-12 00:00: 00 05-25 00:00 :00 No [id number] 2{puff} Inhale 2 Puffs every 4 (four) hours as needed for Wheezing or Shortness of Breath. [facility] 90 mcg/actuati on inhaler 01-12 00:00: 00 05-25 00:00 :00 No [id number] 2{puff} Inhale 2 Puffs every 4 (four) hours as needed for Wheezing or Shortness of Breath. [facility] albuterol 90 mcg/actuati on inhaler 01-12 00:00: 00 05-25 00:00 :00 No [id number] 2{puff} Inhale 2 Puffs every 4 (four) hours as needed for Wheezing or Shortness of Breath. [facility] albuterol 90 mcg/actuati on inhaler 01-12 00:00: 00 05-25 00:00 :00 No [id number] 2{puff} Inhale 2 Puffs every 4 (four) hours as needed for Wheezing or Shortness of Breath. [facility] benzonatate 100 mg capsule 01-12 00:00: 00 02-19 00:00 :00 No [id number] 100mg Take 1 capsule by mouth 3 (three) times daily as needed for Cough. [facility] benzonatate 100 mg capsule 01-12 00:00: 00 02-19 00:00 :00 No [id number] 100mg Take 1 capsule by mouth 3 (three) times daily as needed for Cough. [facility] benzonatate 100 mg capsule 01-12 00:00: 02-19 00:00 :00 No [id number] 100mg Take 1 capsule by mouth 3 (three) times daily as needed for Cough. [facility] losartan 50 mg tablet 12-23 00:00: 00 02-09 00:00 :00 No 50mg Take 1 tablet by mouth 2 (two) times daily. [facility] mg tablet 12-23 00:00: 00 02-09 00:00 :00 No 50mg Take 1 tablet by mouth 2 (two) times daily. [facility] losartan 50 mg tablet 12-23 00:00: 00 02-09 00:00 :00 No 50mg Take 1 tablet by mouth 2 (two) times daily. [facility] top[facility] 25 mg tablet 11-22 00:00: 00 12-26 00:00 :00 No 25mg Take 1 tablet by mouth 2 (two) times daily. [facility] OXcarbazepi ne 150 mg tablet 11-21 00:00: 00 02-09 00:00 :00 No [facility] OXcarbazepi ne 150 mg tablet 11-21 00:00: 00 02-09 00:00 :00 No [facility] OXcarbazepi ne 150 mg tablet 11-21 00:00: 00 02-09 00:00 :00 No [facility] OXcarbazepi ne 150 mg tablet 11-21 00:00: 00 02-09 00:00 :00 No [facility] FLUoxetine 40 mg capsule 11-21 00:00: 00 12-26 00:00 :00 No [facility] traZODone 100 mg tablet 12 00:00: 00 12-26 00:00 :00 No [facility] dicyclomine 20 mg tablet 6-10 00:00: 00 12-26 00:00 :00 No [id number] 20mg Take 1 tablet by mouth 4 (four) times daily. [facility] proMETHazin e 25 mg tablet 6-10 00:00: 00 12-26 00:00 :00 No [id number] 25mg Take 1 tablet by mouth every 6 (six) hours as needed for Nausea and Vomiting (N/V). [facility] acetaminoph en-codeine 300-30 mg tablet 6-05 00:00: 00 12-26 00:00 :00 No TAKE 2 TABLETS BY MOUTH EVERY 6 HOURS NEEDED FOR PAIN [facility] oxybutynin (DITROPAN XL) 10 mg 24 hr tablet 5-30 00:00: 00 12-26 00:00 :00 No [id number] 10mg Take 1 tablet by mouth daily. [facility] ondansetron (ZOFRAN ODT) 4 mg disintegrat ing tablet 5-30 00:00: 00 12-26 00:00 :00 No [id number] 4mg Take 1 tablet by mouth every 8 (eight) hours as needed for Nausea and Vomiting (N/V). [facility] oxybutynin (DITROPAN XL) 10 mg 24 hr tablet 5-30 00:00: 00 12-26 00:00 :00 No [id number] 10mg Take 1 tablet by mouth daily. [facility] ondansetron (ZOFRAN ODT) 4 mg disintegrat ing tablet 5-30 00:00: 00 12-26 00:00 :00 No [id number] 4mg Take 1 tablet by mouth every 8 (eight) hours as needed for Nausea and Vomiting (N/V). [facility] oxybutynin (DITROPAN XL) 10 mg 24 hr tablet 5-30 00:00: 00 12-26 00:00 :00 No [id number] 10mg Take 1 tablet by mouth daily. [facility] ondansetron (ZOFRAN ODT) 4 mg disintegrat ing tablet 5-30 00:00: 00 12-26 00:00 :00 No [id number] 4mg Take 1 tablet by mouth every 8 (eight) hours as needed for Nausea and Vomiting (N/V). [facility] oxybutynin (DITROPAN XL) 10 mg 24 hr tablet 5-30 00:00: 00 12-26 00:00 :00 No [id number] 10mg Take 1 tablet by mouth daily. [facility] ondansetron (ZOFRAN ODT) 4 mg disintegrat ing tablet 530 00:00: 00 12-26 00:00 :00 No [id number] 4mg Take 1 tablet by mouth every 8 (eight) hours as needed for Nausea and Vomiting (N/V). [facility] ciprofloxac in HCl 500 mg tablet 530 00:00: 00 11-22 00:00 :00 No [id number] 500mg Take 1 tablet by mouth 2 (two) times daily. [facility] ciprofloxac in HCl 500 mg tablet 30 00:00: 00 11-22 00:00 :00 No [id number] 500mg Take 1 tablet by mouth 2 (two) times daily. [facility] ciprofloxac in HCl 500 mg tablet 530 00:00: 00 11-22 00:00 :00 No [id number] 500mg Take 1 tablet by mouth 2 (two) times daily. [facility] predniSONE 20 mg tablet 525 00:00: 00 11-22 00:00 :00 No [id number] 20mg Take 1 tablet by mouth daily. Days 1-2: 3 pills (60 mg). Days 3-4: 2 pills (40 mg). Days 5-6: 1 pill (20 mg). Days 7-8: 1/2 pill (10 mg). Then stop [facility] predniSONE 20 mg tablet 525 00:00: 00 11-22 00:00 :00 No [id number] 20mg Take 1 tablet by mouth daily. Days 1-2: 3 pills (60 mg). Days 3-4: 2 pills (40 mg). Days 5-6: 1 pill (20 mg). Days 7-8: 1/2 pill (10 mg). Then stop [facility] predniSONE 20 mg tablet 0 10-04 00:00: 00 11-22 00:00 :00 No [id number] 20mg Take 1 tablet by mouth daily. Days 1-2: 3 pills (60 mg). Days 3-4: 2 pills (40 mg). Days 5-6: 1 pill (20 mg). Days 7-8: 1/2 pill (10 mg). Then stop [facility] predniSONE 20 mg tablet 10-04 00:00: 00 11-22 00:00 :00 No [id number] 20mg Take 1 tablet by mouth daily. Days 1-2: 3 pills (60 mg). Days 3-4: 2 pills (40 mg). Days 5-6: 1 pill (20 mg). Days 7-8: 1/2 pill (10 mg). Then stop [facility] predniSONE 20 mg tablet 10-04 00:00: 00 11-22 00:00 :00 No [id number] 20mg Take 1 tablet by mouth daily. Days 1-2: 3 pills (60 mg). Days 3-4: 2 pills (40 mg). Days 5-6: 1 pill (20 mg). Days 7-8: 1/2 pill (10 mg). Then stop [facility] predniSONE 20 mg tablet 0 10-04 00:00: 00 11-22 00:00 :00 No [id number] 20mg Take 1 tablet by mouth daily. Days 1-2: 3 pills (60 mg). Days 3-4: 2 pills (40 mg). Days 5-6: 1 pill (20 mg). Days 7-8: 1/2 pill (10 mg). Then stop [facility] predniSONE 20 mg tablet 2020-10-04 00:00: 00 11-22 00:00 :00 No [id number] 20mg Take 1 tablet by mouth daily. Days 1-2: 3 pills (60 mg). Days 3-4: 2 pills (40 mg). Days 5-6: 1 pill (20 mg). Days 7-8: 1/2 pill (10 mg). Then stop [facility] predniSONE 20 mg tablet 10-04 00:00: 00 11-22 00:00 :00 No [id number] 20mg Take 1 tablet by mouth daily. Days 1-2: 3 pills (60 mg). Days 3-4: 2 pills (40 mg). Days 5-6: 1 pill (20 mg). Days 7-8: 1/2 pill (10 mg). Then stop [facility] predniSONE 20 mg tablet 10-04 00:00: 00 11-22 00:00 :00 No [id number] 20mg Take 1 tablet by mouth daily. Days 1-2: 3 pills (60 mg). Days 3-4: 2 pills (40 mg). Days 5-6: 1 pill (20 mg). Days 7-8: 1/2 pill (10 mg). Then stop [facility] predniSONE 20 mg tablet 10-04 00:00: 00 11-22 00:00 :00 No [id number] 20mg Take 1 tablet by mouth daily. Days 1-2: 3 pills (60 mg). Days 3-4: 2 pills (40 mg). Days 5-6: 1 pill (20 mg). Days 7-8: 1/2 pill (10 mg). Then stop [facility] mupirocin 2 % ointment 09-29 00:00: 00 12-26 00:00 :00 No [id number] Apply to both nostrils at bedtime [facility] mupirocin 2 % ointment 20 00:00: 00 12-26 00:00 :00 No [id number] Apply to both nostrils at bedtime [facility] mupirocin 2 % ointment 20 00:00: 00 12-26 00:00 :00 No [id number] Apply to both nostrils at bedtime [facility] mupirocin 2 % ointment 5-20 00:00: 00 12-26 00:00 :00 No [id number] Apply to both nostrils at bedtime [facility] mupirocin 2 % ointment 5-20 00:00: 00 12-26 00:00 :00 No [id number] Apply to both nostrils at bedtime [facility] mupirocin 2 % ointment 0 20 00:00: 00 12-26 00:00 :00 No [id number] Apply to both nostrils at bedtime [facility] mupirocin 2 % ointment 520 00:00: 00 12-26 00:00 :00 No [id number] Apply to both nostrils at bedtime [facility] mupirocin 2 % ointment 20 00:00: 00 12-26 00:00 :00 No [id number] Apply to both nostrils at bedtime [facility] mupirocin 2 % ointment 20 00:00: 00 12-26 00:00 :00 No [id number] Apply to both nostrils at bedtime [facility] mupirocin 2 % ointment 20 00:00: 00 12-26 00:00 :00 No [id number] Apply to both nostrils at bedtime [facility] mupirocin 2 % ointment 20 00:00: 00 12-26 00:00 :00 No [id number] Apply to both nostrils at bedtime [facility] naproxen sodium (ANAPROX DS) 550 mg tablet 09-28 00:00: 00 12-26 00:00 :00 No [id number] 550mg Take 1 tablet by mouth 2 (two) times daily with meals. [facility] naproxen sodium (ANAPROX DS) 550 mg tablet 09-28 00:00: 00 12-26 00:00 :00 No [id number] 550mg Take 1 tablet by mouth 2 (two) times daily with meals. [facility] naproxen sodium (ANAPROX DS) 550 mg tablet 5 00:00: 00 12-26 00:00 :00 No [id number] 550mg Take 1 tablet by mouth 2 (two) times daily with meals. [facility] naproxen sodium (ANAPROX DS) 550 mg tablet 5 00:00: 00 12-26 00:00 :00 No [id number] 550mg Take 1 tablet by mouth 2 (two) times daily with meals. [facility] naproxen sodium (ANAPROX DS) 550 mg tablet 09-28 00:00: 00 12-26 00:00 :00 No [id number] 550mg Take 1 tablet by mouth 2 (two) times daily with meals. [facility] naproxen sodium (ANAPROX DS) 550 mg tablet 09-28 00:00: 00 12-26 00:00 :00 No [id number] 550mg Take 1 tablet by mouth 2 (two) times daily with meals. [facility] naproxen sodium (ANAPROX DS) 550 mg tablet 09-28 00:00: 00 12-26 00:00 :00 No [id number] 550mg Take 1 tablet by mouth 2 (two) times daily with meals. [facility] naproxen sodium (ANAPROX DS) 550 mg tablet 09-28 00:00: 00 12-26 00:00 :00 No [id number] 550mg Take 1 tablet by mouth 2 (two) times daily with meals. [facility] naproxen sodium (ANAPROX DS) 550 mg tablet 5 00:00: 00 12-26 00:00 :00 No [id number] 550mg Take 1 tablet by mouth 2 (two) times daily with meals. [facility] naproxen sodium (ANAPROX DS) 550 mg tablet 09-28 00:00: 00 12-26 00:00 :00 No [id number] 550mg Take 1 tablet by mouth 2 (two) times daily with meals. [facility] naproxen sodium (ANAPROX DS) 550 mg tablet 09-28 00:00: 00 12-26 00:00 :00 No [id number] 550mg Take 1 tablet by mouth 2 (two) times daily with meals. [facility] losartan 25 mg tablet 09-16 00:00: 00 12-22 00:00 :00 No 25mg Take 1 tablet by mouth 2 (two) times daily. [facility] nadoloL 20 mg tablet 09-16 00:00: 00 12-22 00:00 :00 No [id number] Please take Nadalol 40 mg QAM [facility] losartan 25 mg tablet 09-16 00:00: 00 12-22 00:00 :00 No 25mg Take 1 tablet by mouth 2 (two) times daily. [facility] nadoloL 20 mg tablet 09-16 00:00: 00 12-22 00:00 :00 No [id number] Please take Nadalol 40 mg QAM [facility] losartan 25 mg tablet 09-16 00:00: 00 12-22 00:00 :00 No 25mg Take 1 tablet by mouth 2 (two) times daily. [facility] nadoloL 20 mg tablet 09-16 00:00: 00 12-22 00:00 :00 No [id number] Please take Nadalol 40 mg QAM [facility] losartan 25 mg tablet 09-16 00:00: 00 12-22 00:00 :00 No 25mg Take 1 tablet by mouth 2 (two) times daily. [facility] nadoloL 20 mg tablet 09-16 00:00: 12-22 00:00 :00 No [id number] Please take Nadalol 40 mg QAM [facility] losartan 25 mg tablet 09-16 00:00: 00 12-22 00:00 :00 No 25mg Take 1 tablet by mouth 2 (two) times daily. [facility] nadoloL 20 mg tablet 09-16 00:00: 00 12-22 00:00 :00 No [id number] Please take Nadalol 40 mg QAM [facility] losartan 25 mg tablet 09-16 00:00: 00 12-22 00:00 :00 No 25mg Take 1 tablet by mouth 2 (two) times daily. [facility] nadoloL 20 mg tablet 09-16 00:00: 00 12-22 00:00 :00 No [id number] Please take Nadalol 40 mg QAM [facility] losartan 25 mg tablet 09-16 00:00: 00 12-22 00:00 :00 No 25mg Take 1 tablet by mouth 2 (two) times daily. [facility] nadoloL 20 mg tablet 09-16 00:00: 00 12-22 00:00 :00 No [id number] Please take Nadalol 40 mg QAM [facility] losartan 25 mg tablet 09-16 00:00: 00 12-22 00:00 :00 No 25mg Take 1 tablet by mouth 2 (two) times daily. [facility] nadoloL 20 mg tablet 09-16 00:00: 00 12-22 00:00 :00 No [id number] Please take Nadalol 40 mg QAM [facility] losartan 25 mg tablet 09-16 00:00: 00 12-22 00:00 :00 No 25mg Take 1 tablet by mouth 2 (two) times daily. [facility] nadoloL 20 mg tablet 09-16 00:00: 00 12-22 00:00 :00 No [id number] Please take Nadalol 40 mg QAM [facility] losartan 25 mg tablet 09-16 00:00: 00 12-22 00:00 :00 No 25mg Take 1 tablet by mouth 2 (two) times daily. [facility] nadoloL 20 mg tablet 09-16 00:00: 00 12-22 00:00 :00 No [id number] Please take Nadalol 40 mg QAM [facility] losartan 25 mg tablet 09-16 00:00: 00 12-22 00:00 :00 No 25mg Take 1 tablet by mouth 2 (two) times daily. [facility] nadoloL 20 mg tablet 09-16 00:00: 00 12-22 00:00 :00 No [id number] Please take Nadalol 40 mg QAM [facility] LOESTRIN FE (LOESTRIN FE 1/20) 1 mg-20 mcg (21)/75 mg (7) tablet 09-06 00:00: 00 02-09 00:00 :00 No [id number] 1{tbl} Take 1 tablet by mouth daily. [facility] LOESTRIN FE (LOESTRIN FE 1/20) 1 mg-20 mcg (21)/75 mg (7) tablet 09-06 00:00: 00 02-09 00:00 :00 No [id number] 1{tbl} Take 1 tablet by mouth daily. [facility] LOESTRIN FE (LOESTRIN FE 1/20) 1 mg-20 mcg (21)/75 mg (7) tablet 09-06 00:00: 00 02-09 00:00 :00 No [id number] 1{tbl} Take 1 tablet by mouth daily. [facility] LOESTRIN FE (LOESTRIN FE 1/20) 1 mg-20 mcg (21)/75 mg (7) tablet 09-06 00:00: 00 02-09 00:00 :00 No [id number] 1{tbl} Take 1 tablet by mouth daily. [facility] LOESTRIN FE (LOESTRIN FE 1/20) 1 mg-20 mcg (21)/75 mg (7) tablet 09-06 00:00: 00 02-09 00:00 :00 No [id number] 1{tbl} Take 1 tablet by mouth daily. [facility] LOESTRIN FE (LOESTRIN FE 1/20) 1 mg-20 mcg (21)/75 mg (7) tablet 09-06 00:00: 00 02-09 00:00 :00 No [id number] 1{tbl} Take 1 tablet by mouth daily. [facility] LOESTRIN FE (LOESTRIN FE 1/20) 1 mg-20 mcg (21)/75 mg (7) tablet 09-06 00:00: 00 02-09 00:00 :00 No [id number] 1{tbl} Take 1 tablet by mouth daily. [facility] LOESTRIN FE (LOESTRIN FE 1/20) 1 mg-20 mcg (21)/75 mg (7) tablet 09-06 00:00: 00 02-09 00:00 :00 No [id number] 1{tbl} Take 1 tablet by mouth daily. [facility] LOESTRIN FE (LOESTRIN FE 1/20) 1 mg-20 mcg (21)/75 mg (7) tablet 09-06 00:00: 00 02-09 00:00 :00 No [id number] 1{tbl} Take 1 tablet by mouth daily. [facility] LOESTRIN FE (LOESTRIN FE 1/20) 1 mg-20 mcg (21)/75 mg (7) tablet 09-06 00:00: 00 02-09 00:00 :00 No [id number] 1{tbl} Take 1 tablet by mouth daily. [facility] LOESTRIN FE (LOESTRIN FE 1/20) 1 mg-20 mcg (21)/75 mg (7) tablet 09-06 00:00: 00 02-09 00:00 :00 No [id number] 1{tbl} Take 1 tablet by mouth daily. [facility] LOESTRIN FE (LOESTRIN FE 1/20) 1 mg-20 mcg (21)/75 mg (7) tablet 09-06 00:00: 00 02-09 00:00 :00 No [id number] 1{tbl} Take 1 tablet by mouth daily. [facility] LOESTRIN FE (LOESTRIN FE 1/20) 1 mg-20 mcg (21)/75 mg (7) tablet 09-06 00:00: 00 02-09 00:00 :00 No [id number] 1{tbl} Take 1 tablet by mouth daily. [facility] LOESTRIN FE (LOESTRIN FE 1/20) 1 mg-20 mcg (21)/75 mg (7) tablet 09-06 00:00: 00 02-09 00:00 :00 No [id number] 1{tbl} Take 1 tablet by mouth daily. [facility] FLUoxetine 20 mg capsule 09-06 00:00: 00 11-22 00:00 :00 No [id number] 20mg Take 1 capsule by mouth daily. [facility] traZODone 50 mg tablet 09-06 00:00: 00 11-22 00:00 :00 No [id number] 50mg Take 1 tablet by mouth at bedtime. [facility] FLUoxetine 20 mg capsule 09-06 00:00: 00 11-22 00:00 :00 No [id number] 20mg Take 1 capsule by mouth daily. [facility] traZODone 50 mg tablet 09-06 00:00: 00 11-22 00:00 :00 No [id number] 50mg Take 1 tablet by mouth at bedtime. [facility] FLUoxetine 20 mg capsule 09-06 00:00: 00 11-22 00:00 :00 No [id number] 20mg Take 1 capsule by mouth daily. [facility] traZODone 50 mg tablet 2021-0 4-27 00:00: 00 11-22 00:00 :00 No [id number] 50mg Take 1 tablet by mouth at bedtime. [facility] FLUoxetine 20 mg capsule 2020-0 27 00:00: 00 11-22 00:00 :00 No [id number] 20mg Take 1 capsule by mouth daily. [facility] traZODone 50 mg tablet 0 09-06 00:00: 00 11-22 00:00 :00 No [id number] 50mg Take 1 tablet by mouth at bedtime. [facility] FLUoxetine 20 mg capsule 0 09-06 00:00: 00 11-22 00:00 :00 No [id number] 20mg Take 1 capsule by mouth daily. [facility] traZODone 50 mg tablet 2020-0 09-06 00:00: 00 11-22 00:00 :00 No [id number] 50mg Take 1 tablet by mouth at bedtime. [facility] FLUoxetine 20 mg capsule 0 09-06 00:00: 00 11-22 00:00 :00 No [id number] 20mg Take 1 capsule by mouth daily. [facility] traZODone 50 mg tablet 0 09-06 00:00: 00 11-22 00:00 :00 No [id number] 50mg Take 1 tablet by mouth at bedtime. [facility] FLUoxetine 20 mg capsule 2020-0 09-06 00:00: 00 11-22 00:00 :00 No [id number] 20mg Take 1 capsule by mouth daily. [facility] traZODone 50 mg tablet 2020-0 27 00:00: 00 11-22 00:00 :00 No [id number] 50mg Take 1 tablet by mouth at bedtime. [facility] FLUoxetine 20 mg capsule 2020-0 27 00:00: 00 11-22 00:00 :00 No [id number] 20mg Take 1 capsule by mouth daily. [facility] traZODone 50 mg tablet 09-06 00:00: 00 11-22 00:00 :00 No [id number] 50mg Take 1 tablet by mouth at bedtime. [facility] FLUoxetine 20 mg capsule 09-06 00:00: 00 11-22 00:00 :00 No [id number] 20mg Take 1 capsule by mouth daily. [facility] traZODone 50 mg tablet 09-06 00:00: 00 11-22 00:00 :00 No [id number] 50mg Take 1 tablet by mouth at bedtime. [facility] FLUoxetine 20 mg capsule 09-06 00:00: 00 11-22 00:00 :00 No [id number] 20mg Take 1 capsule by mouth daily. [facility] traZODone 50 mg tablet 09-06 00:00: 00 11-22 00:00 :00 No [id number] 50mg Take 1 tablet by mouth at bedtime. [facility] nadoloL 20 mg tablet 08-31 00:00: 00 09-16 00:00 :00 No [id number] Please take Nadalol 40 mg QAM and 20 mg QPM [facility] methocarbam oL (ROBAXIN) 500 mg tablet 08-18 00:00: 00 09-30 00:00 :00 No [id number] 500mg Take 1 tablet by mouth every 6 (six) hours as needed (MUSCLE SPASM). [facility] traMADoL (ULTRAM) 50 mg tablet 08-18 00:00: 00 09-30 00:00 :00 No [id number] 50mg Take 1 tablet by mouth every 6 (six) hours as needed for Pain (scale 7-10). Indication s: acute pain [facility] ibuprofen 800 mg tablet 08-14 00:00: 00 11-22 00:00 :00 No TAKE 1 TABLET BY MOUTH EVERY 12 HOURS NEEDED FOR PAIN [facility] ibuprofen 800 mg tablet 08-14 00:00: 11-22 00:00 :00 No TAKE 1 TABLET BY MOUTH EVERY 12 HOURS NEEDED FOR PAIN [facility] ibuprofen 800 mg tablet 2020-0 4-04 00:00: 00 11-22 00:00 :00 No TAKE 1 TABLET BY MOUTH EVERY 12 HOURS NEEDED FOR PAIN [facility] ibuprofen 800 mg tablet 0 4-04 00:00: 00 11-22 00:00 :00 No TAKE 1 TABLET BY MOUTH EVERY 12 HOURS NEEDED FOR PAIN [facility] ibuprofen 800 mg tablet 2020-0 4-04 00:00: 00 11-22 00:00 :00 No TAKE 1 TABLET BY MOUTH EVERY 12 HOURS [facility] 4-04 00:00: 00 11-22 00:00 :00 No TAKE 1 TABLET BY MOUTH EVERY 12 HOURS NEEDED FOR PAIN [facility] ibuprofen 800 mg tablet 4-04 00:00: 00 11-22 00:00 :00 No TAKE 1 TABLET BY MOUTH EVERY 12 HOURS [facility]ED FOR [facility]IN [facility] mg tablet 4-04 00:00: 00 11-22 00:00 :00 No TAKE 1 TABLET BY MOUTH EVERY 12 HOURS [facility]ED FOR [facility]IN [facility] mg tablet 4-04 00:00: 00 11-22 00:00 :00 No TAKE 1 TABLET BY MOUTH EVERY 12 HOURS [facility]ED FOR PAIN [facility] mg tablet 4-04 00:00: 00 11-22 00:00 :00 No TAKE 1 TABLET BY MOUTH EVERY 12 HOURS NEEDED FOR PAIN [facility] ondansetron (ZOFRAN ODT) 4 mg disintegrat ing tablet 08-01 00:00: 00 09-30 00:00 :00 No [id number] 4mg Take 1 tablet by mouth every 8 (eight) hours as needed for Nausea and Vomiting (N/V). [facility] ketorolac 10 mg tablet 08-01 00:00: 00 09-30 00:00 :00 No [id number] 10mg Take 1 tablet by mouth every 6 (six) hours as needed for Pain (scale 4-6). [facility] ciprofloxac in HCl 250 mg tablet 08-01 00:00: 00 09-30 00:00 :00 No [id number] 250mg Take 1 tablet by mouth 2 (two) times daily. [facility] lidocaine 5 % (700 mg/patch) patch 07-22 00:00: 00 09-30 00:00 :00 No [id number] 1{patch } Apply 1 Patch to area(s) every 24 (twenty-fo ur) hours as needed for Localized pain. [facility] topiramate 25 mg tablet 05 00:00: 00 11-22 00:00 :00 No 25mg Take 1 tablet by mouth 2 (two) times daily. [facility] topiramate 25 mg tablet 05-17 00:00: 00 11-22 00:00 :00 No 25mg Take 1 tablet by mouth 2 (two) times daily. [facility] topiramate 25 mg tablet 05 00:00: 00 11-22 00:00 :00 No 25mg Take 1 tablet by mouth 2 (two) times daily. [facility] topiramate 25 mg tablet 05 00:00: 00 11-22 00:00 :00 No 25mg Take 1 tablet by mouth 2 (two) times daily. [facility] topiramate 25 mg tablet 1-05 00:00: 00 11-22 00:00 :00 No 25mg Take 1 tablet by mouth 2 (two) times daily. [facility] topiramate 25 mg tablet 1-05 00:00: 00 11-22 00:00 :00 No 25mg Take 1 tablet by mouth 2 (two) times daily. [facility] topiramate 25 mg tablet 2021-0 1-05 00:00: 00 11-22 00:00 :00 No 25mg Take 1 tablet by mouth 2 (two) times daily. [facility] 2020-0 1-05 00:00: 00 11-22 00:00 :00 No 25mg Take 1 tablet by mouth 2 (two) times daily. [facility] mg tablet 2020-0 1-05 00:00: 00 11-22 00:00 :00 No 25mg Take 1 tablet by mouth 2 (two) times daily. [facility] topiramate 25 mg tablet 2020-0 1-05 00:00: 00 11-22 00:00 :00 No 25mg Take 1 tablet by mouth 2 (two) times daily. [facility] topiramate 25 mg tablet 2020-0 1-05 00:00: 00 11-22 00:00 :00 No 25mg Take 1 tablet by mouth 2 (two) times daily. [facility] topiramate 25 mg tablet 0 1-05 00:00: 00 11-22 00:00 :00 No 25mg Take 1 tablet by mouth 2 (two) times daily. [facility] topiramate 25 mg tablet 0 1-05 00:00: 00 11-22 00:00 :00 No 25mg Take 1 tablet by mouth 2 (two) times daily. [facility] metoprolol succinate XL 25 mg 24 hr tablet 2019-05 00:00: 00 06-15 00:00 :00 No [id number] 12.5mg Take 0.5 tablets by mouth 2 (two) times daily for 90 days. [facility] metoprolol succinate XL 25 mg 24 hr tablet 2019-05 00:00: 00 06-15 00:00 :00 No [id number] 12.5mg Take 0.5 tablets by mouth 2 (two) times daily for 90 days. [facility] metoprolol succinate XL 25 mg 24 hr tablet 2019-05 00:00: 00 06-15 00:00 :00 No [id number] 12.5mg Take 0.5 tablets by mouth 2 (two) times daily for 90 days. [facility] FLUoxetine 20 mg capsule 2019-05 00:00: 00 09-06 00:00 :00 No 20mg Take 20 mg by mouth daily. [facility] FLUoxetine 20 mg capsule 2019-05 00:00: 09-06 00:00 :00 No 20mg Take 20 mg by mouth daily. [facility] norgestimat e-ethinyl estradiol 0.25-35 mg-mcg per tablet 11-17 00:00: 04-15 00:00 :00 No [id number] 1{tbl} Take 1 tablet by mouth daily. [facility] buPROPion XL (WELLBUTRIN XL) 150 mg 24 hr tablet 08-12 00:00: 01-04 00:00 :00 No [id number] 150mg Take 1 tablet by mouth daily. [facility] acetaminoph en 325 mg tablet 07-22 00:00: 01-04 00:00 :00 No [id number] 650mg Take 2 tablets by mouth every 6 (six) hours as needed for Pain (scale 1-3) or Pain (scale 4-6). [facility] vitamin w/FA tablet 07-22 00:00: 00 01-04 00:00 :00 No [id number] 1{tbl} Take 1 tablet by mouth daily. [facility] docusate calcium 240 mg capsule 07-22 00:00: 00 01-04 00:00 :00 No [id number] 240mg Take 1 capsule by mouth once daily as needed for Constipati on. [facility] ferrous sulfate 325 mg (65 mg iron) tablet 07-22 00:00: 00 01-04 00:00 :00 No [id number] 325mg Take 1 tablet by mouth 2 (two) times daily. [facility] ibuprofen 600 mg tablet 07-22 00:00: 00 01-04 00:00 :00 No [id number] 600mg Take 1 tablet by mouth every 6 (six) hours as needed (Pain). Take with food or milk. [facility] ALBUTEROL 90 mcg/actuati on inhaler 14 00:00: 00 05-01 00:00 :00 No [id number] 103 INHALE 2 PUFFS BY MOUTH EVERY 6 HOURS NEEDED FOR WHEEZING FOR SHORTNESS OF BREATH [facility] buPROPion SR (WELLBUTRIN SR) 150 mg SR tablet 05-21 00:00: 00 01-04 00:00 :00 No [id number] 150mg Take 1 tablet by mouth 2 (two) times daily. [facility] busPIRone 10 mg tablet 05-21 00:00: 00 01-04 00:00 :00 No [id number] 109 10mg Take 1 tablet by mouth 3 (three) times daily. [facility] Immunizations Ordered Immunization Name Filled Immunization Name Date Status Comments Source Influenza Virus Vaccine Quad IM, Preserv and ABX Free 6 MO-64 YRS 2022-02-27 00:00:[address] [facility] Influenza Virus Vaccine Quad IM, Preserv and ABX Free 6 MO-64 YRS 2022-02-27 00:00:[address] [facility] Influenza Virus Vaccine Quad IM, Preserv and ABX Free 6 MO-64 YRS 2022-02-27 00:00:[address] [facility] Influenza Virus Vaccine Quad IM, Preserv and ABX Free 6 MO-64 YRS 2022-02-27 00:00:[address] [facility] Influenza Virus Vaccine Quad IM, Preserv and ABX Free 6 MO-64 YRS 2022-02-27 00:00:[address] [facility] Influenza Virus Vaccine Quad IM, Preserv and ABX Free 6 MO-64 YRS 2022-02-27 00:00:[address] [facility] Influenza Virus Vaccine Quad IM, Preserv and ABX Free 6 MO-64 YRS 2022-02-27 00:00:[address] [facility] Influenza Virus Vaccine Quad IM, Preserv and ABX Free 6 MO-64 YRS 2022-02-27 00:00:[address] [facility] Influenza Virus Vaccine Quad IM, Preserv and ABX Free 6 MO-64 YRS 2022-02-27 00:00:[address] [facility] Influenza Virus Vaccine Quad IM, Preserv and ABX Free 6 MO-64 YRS 2022-02-27 00:00:[address] [facility] Influenza Virus Vaccine Quad IM, Preserv and ABX Free 6 MO-64 YRS 2022-02-27 00:00:[address] [facility] Influenza Virus Vaccine Quad IM, Preserv and ABX Free 6 MO-64 YRS 2022-02-27 00:00:[address] [facility] Influenza Virus Vaccine Quad IM, Preserv and ABX Free 6 MO-64 YRS 2022-02-27 00:00:[address] [facility] Influenza Virus Vaccine Quad IM, Preserv and ABX Free 6 MO-64 YRS 2022-02-27 00:00:[address] [facility] Influenza Virus Vaccine Quad IM, Preserv and ABX Free 6 MO-64 YRS 2022-02-27 00:00:[address] [facility] Influenza Virus Vaccine Quad IM, Preserv and ABX Free 6 MO-64 YRS 2022-02-27 00:00:[address] [facility] Influenza Virus Vaccine Quad IM, Preserv and ABX Free 6 MO-64 YRS 2022-02-27 00:00:[address] [facility] Influenza Virus Vaccine Quad IM, Preserv and ABX Free 6 MO-64 YRS 2022-02-27 00:00:[address] [facility] Influenza Virus Vaccine Quad IM, Preserv and ABX Free 6 MO-64 YRS 2022-02-27 00:00:[address] [facility] Influenza Virus Vaccine Quad IM, Preserv and ABX Free 6 MO-64 YRS 2022-02-27 00:00:[address] [facility] Influenza Virus Vaccine Quad IM, Preserv and ABX Free 6 MO-64 YRS 2022-02-27 00:00:[address] [facility] Influenza Virus Vaccine Quad IM, Preserv and ABX Free 6 MO-64 YRS 2022-02-27 00:00:[address] [facility] Influenza Virus Vaccine Quad IM, Preserv and ABX Free 6 MO-64 YRS 2022-02-27 00:00:[address] [facility] Influenza Virus Vaccine Quad IM, Preserv and ABX Free 6 MO-64 YRS 2022-02-27 00:00:[address] [facility] Influenza Virus Vaccine Quad IM, Preserv and ABX Free 6 MO-64 YRS 2022-02-27 00:00:[address] [facility] Influenza Virus Vaccine Quad IM, Preserv and ABX Free 6 MO-64 YRS 2022-02-27 00:00:[address] [facility] Influenza Virus Vaccine Quad IM, Preserv and ABX Free 6 MO-64 YRS 2022-02-27 00:00:[address] [facility] Influenza Virus Vaccine Quad IM, Preserv and ABX Free 6 MO-64 YRS 2022-02-27 00:00:[address] [facility] Influenza Virus Vaccine Quad IM, Preserv and ABX Free 6 MO-64 YRS 2022-02-27 00:00:[address] [facility] Influenza Virus Vaccine Quad IM, Preserv and ABX Free 6 MO-64 YRS 2022-02-27 00:00:[address] [facility] Influenza Virus Vaccine Quad IM, Preserv and ABX Free 6 MO-64 YRS 2022-02-27 00:00:[address] [facility] Influenza Virus Vaccine Quad IM, Preserv and ABX Free 6 MO-64 YRS 2022-02-27 00:00:[address] [facility] Influenza Virus Vaccine Quad IM, Preserv and ABX Free 6 MO-64 YRS 2022-02-27 00:00:[address] [facility] Influenza Virus Vaccine Quad IM, Preserv and ABX Free 6 MO-64 YRS 2022-02-27 00:00:[address] [facility] Influenza Virus Vaccine Quad IM, Preserv and ABX Free 6 MO-64 YRS 2022-02-27 00:00:[address] [facility] Influenza Virus Vaccine Quad IM, Preserv and ABX Free 6 MO-64 YRS 2022-02-27 00:00:[address] [facility] Influenza Virus Vaccine Quad IM, Preserv and ABX Free 6 MO-64 YRS 2022-02-27 00:00:[address] [facility] Influenza Virus Vaccine Quad IM, Preserv and ABX Free 6 MO-64 YRS 2022-02-27 00:00:[address] [facility] Influenza Virus Vaccine Quad IM, Preserv and ABX Free 6 MO-64 YRS 2022-02-27 00:00:[address] [facility] Influenza Virus Vaccine Quad IM, Preserv and ABX Free 6 MO-64 YRS 2022-02-27 00:00:[address] [facility] Influenza Virus Vaccine Quad IM, Preserv and ABX Free 6 MO-64 YRS 2022-02-27 00:00:[address] [facility] Influenza Virus Vaccine Quad IM, Preserv and ABX Free 6 MO-64 YRS 2022-02-27 00:00:[address] [facility] Influenza Virus Vaccine Quad IM, Preserv and ABX Free 6 MO-64 YRS 2022-02-27 00:00:[address] [facility] Influenza Virus Vaccine Quad IM, Preserv and ABX Free 6 MO-64 YRS 2022-02-27 00:00:[address] [facility] Influenza Virus Vaccine Quad IM, Preserv and ABX Free 6 MO-64 YRS 2022-02-27 00:00:[address] [facility] Influenza Virus Vaccine Quad IM, Preserv and ABX Free 6 MO-64 YRS 2022-02-27 00:00:[address] [facility] Influenza Virus Vaccine Quad IM, Preserv and ABX Free 6 MO-64 YRS 2022-02-27 00:00:[address] [facility] Influenza Virus Vaccine Quad IM, Preserv and ABX Free 6 MO-64 YRS 2022-02-27 00:00:[address] [facility] Influenza Virus Vaccine Quad IM, Preserv and ABX Free 6 MO-64 YRS 2022-02-27 00:00:[address] [facility] Influenza Virus Vaccine Quad IM, Preserv and ABX Free 6 MO-64 YRS (FLUCELVAX) 2022-02-27 00:00:[address] [facility] Influenza Virus Vaccine Quad IM, Preserv and ABX Free 6 MO-64 YRS (FLUCELVAX) 2022-02-27 00:00:[address] [facility] Influenza Virus Vaccine Quad IM, Preserv and ABX Free 6 MO-64 YRS (FLUCELVAX) 2022-02-27 00:00:[address] [facility] Influenza Virus Vaccine Quad .5 mL IM 6+ MO 2022-02-21 00:00:[address] [facility] Influenza Virus Vaccine Quad .5 mL IM 6+ MO 2022-02-21 00:00:[address] [facility] Influenza Virus Vaccine Quad .5 mL IM 6+ MO 2022-02-21 00:00:[address] [facility] Influenza Virus Vaccine Quad .5 mL IM 6+ MO 2022-02-21 00:00:[address] [facility] Influenza Virus Vaccine Quad .5 mL IM 6+ MO 2022-02-21 00:00:[address] [facility] Influenza Virus Vaccine Quad .5 mL IM 6+ MO 2022-02-21 00:00:[address] [facility] Influenza Virus Vaccine Quad .5 mL IM 6+ MO 2022-02-21 00:00:[address] [facility] Influenza Virus Vaccine Quad .5 mL IM 6+ MO 2022-02-21 00:00:[address] [facility] Influenza Virus Vaccine Quad .5 mL IM 6+ MO 2022-02-21 00:00:[address] [facility] Influenza Virus Vaccine Quad .5 mL IM 6+ MO 2022-02-21 00:00:[address] [facility] Influenza Virus Vaccine Quad .5 mL IM 6+ MO 2022-02-21 00:00:[address] [facility] Influenza Virus Vaccine Quad .5 mL IM 6+ MO 2022-02-21 00:00:[address] [facility] Influenza Virus Vaccine Quad .5 mL IM 6+ MO 2022-02-21 00:00:[address] [facility] Influenza Virus Vaccine Quad .5 mL IM 6+ MO (FLUZONE/FLULAVAL/F LUARIX) 2022-02-21 00:00:[address] [facility] Influenza Virus Vaccine Quad .5 mL IM 6+ MO (FLUZONE/FLULAVAL/F LUARIX) 2022-02-21 00:00:[address] [facility] Influenza Virus Vaccine Quad .5 mL IM 6+ MO (FLUZONE/FLULAVAL/F LUARIX) 2022-02-21 00:00:[address] [facility] Influenza Virus Vaccine 2021-06-11 00:00:[address] [facility] Influenza Virus Vaccine 2021-06-11 00:00:00 Completed [facility] Influenza Virus Vaccine 2021-06-11 00:00:[address] [facility] Influenza Virus Vaccine 2021-06-11 00:00:[address] [facility] Influenza Virus Vaccine 2021-06-11 00:00:[address] [facility] Influenza Virus Vaccine 2021-06-11 00:00:[address] [facility] Influenza Virus Vaccine 2021-06-11 00:00:[address] [facility] Influenza Virus Vaccine 2021-06-11 00:00:[address] [facility] Influenza Virus Vaccine 2021-06-11 00:00:[address] [facility] Influenza Virus Vaccine 2021-06-11 00:00:[address] [facility] Influenza Virus Vaccine 2021-06-11 00:00:[address] [facility] Influenza Virus Vaccine 2021-06-11 00:00:[address] [facility] Influenza Virus Vaccine 2021-06-11 00:00:[address] [facility] Influenza Virus Vaccine 2021-06-11 00:00:[address] [facility] Influenza Virus Vaccine 2021-06-11 00:00:[address] [facility] Influenza Virus Vaccine 2021-06-11 00:00:[address] [facility] Influenza Virus Vaccine 2021-06-11 00:00:[address] [facility] Influenza Virus Vaccine 2021-06-11 00:00:[address] [facility] Influenza Virus Vaccine 2021-06-11 00:00:[address] [facility] Influenza Virus Vaccine 2021-06-11 00:00:[address] [facility] Influenza Virus Vaccine 2021-06-11 00:00:[address] [facility] Influenza Virus Vaccine 2021-06-11 00:00:[address] [facility] Influenza Virus Vaccine 2021-06-11 00:00:[address] [facility] Influenza Virus Vaccine 2021-06-11 00:00:00 Completed [facility] Influenza Virus Vaccine 2021-06-11 00:00:[address] [facility] Influenza Virus Vaccine 2021-06-11 00:00:[address] [facility] Influenza Virus Vaccine 2021-06-11 00:00:00 Completed [facility] Influenza Virus Vaccine 2021-06-11 00:00:[address] [facility] Influenza Virus Vaccine 2021-06-11 00:00:[address] [facility] Influenza Virus Vaccine 2021-06-11 00:00:[address] [facility] Influenza Virus Vaccine 2021-06-11 00:00:[address] [facility] Influenza Virus Vaccine 2021-06-11 00:00:[address] [facility] Influenza Virus Vaccine 2021-06-11 00:00:[address] [facility] Influenza Virus Vaccine 2021-06-11 00:00:[address] [facility] Influenza Virus Vaccine 2021-06-11 00:00:[address] [facility] Influenza Virus Vaccine 2021-06-11 00:00:[address] [facility] Influenza Virus Vaccine 2021-06-11 00:00:[address] [facility] Influenza Virus Vaccine 2021-06-11 00:00:[address] [facility] Influenza Virus Vaccine 2021-06-11 00:00:[address] [facility] Influenza Virus Vaccine 2021-06-11 00:00:[address] [facility] Influenza Virus Vaccine 2021-06-11 00:00:[address] [facility] Influenza Virus Vaccine 2021-06-11 00:00:[address] [facility] Influenza Virus Vaccine 2021-06-11 00:00:[address] [facility] Influenza Virus Vaccine 2021-06-11 00:00:[address] [facility] Influenza Virus Vaccine 2021-06-11 00:00:[address] [facility] Influenza Virus Vaccine 2021-06-11 00:00:[address] [facility] Influenza Virus Vaccine 2021-06-11 00:00:[address] [facility] Influenza Virus Vaccine 2021-06-11 00:00:[address] [facility] Influenza Virus Vaccine Quad .5 mL IM 6+ MO 2021-06-11 00:00:[address] [facility] Influenza Virus Vaccine 2021-06-11 00:00:[address] [facility] Influenza Virus Vaccine Quad .5 mL IM 6+ MO 2021-06-11 00:00:[address] [facility] Influenza Virus Vaccine 2021-06-11 00:00:00 Completed [facility] Influenza Virus Vaccine Quad .5 mL IM 6+ MO 2021-06-11 00:00:[address] [facility] Influenza Virus Vaccine 2021-06-11 00:00:[address] [facility] Influenza Virus Vaccine Quad .5 mL IM 6+ MO 2021-06-11 00:00:[address] [facility] Influenza Virus Vaccine 2021-06-11 00:00:[address] [facility] Influenza Virus Vaccine Quad .5 mL IM 6+ MO 2021-06-11 00:00:[address] [facility] Influenza Virus Vaccine 2021-06-11 00:00:[address] [facility] Influenza Virus Vaccine Quad .5 mL IM 6+ MO 2021-06-11 00:00:[address] [facility] Influenza Virus Vaccine 2021-06-11 00:00:[address] [facility] Influenza Virus Vaccine Quad .5 mL IM 6+ MO 2021-06-11 00:00:[address] [facility] Influenza Virus Vaccine 2021-06-11 00:00:[address] [facility] Influenza Virus Vaccine Quad .5 mL IM 6+ MO 2021-06-11 00:00:[address] [facility] Influenza Virus Vaccine 2021-06-11 00:00:[address] [facility] Influenza Virus Vaccine Quad .5 mL IM 6+ MO 2021-06-11 00:00:[address] [facility] Influenza Virus Vaccine 2021-06-11 00:00:[address] [facility] Influenza Virus Vaccine Quad .5 mL IM 6+ MO 2021-06-11 00:00:[address] [facility] Influenza Virus Vaccine 2021-06-11 00:00:[address] [facility] Influenza Virus Vaccine Quad .5 mL IM 6+ MO 2021-06-11 00:00:[address] [facility] Influenza Virus Vaccine 2021-06-11 00:00:[address] [facility] Influenza Virus Vaccine Quad .5 mL IM 6+ MO 2021-06-11 00:00:[address] [facility] Influenza Virus Vaccine 2021-06-11 00:00:[address] [facility] Influenza Virus Vaccine Quad .5 mL IM 6+ MO 2021-06-11 00:00:[address] [facility] Influenza Virus Vaccine 2021-06-11 00:00:[address] [facility] Influenza Virus Vaccine Quad .5 mL IM 6+ MO (FLUZONE/FLULAVAL/F LUARIX) 2021-06-11 00:00:[address] [facility] Influenza Virus Vaccine 2021-06-11 00:00:[address] [facility] Influenza Virus Vaccine Quad .5 mL IM 6+ MO (FLUZONE/FLULAVAL/F LUARIX) 2021-06-11 00:00:[address] [facility] Influenza Virus Vaccine 2021-06-11 00:00:[address] [facility] Influenza Virus Vaccine Quad .5 mL IM 6+ MO (FLUZONE/FLULAVAL/F LUARIX) 2021-06-11 00:00:[address] [facility] Influenza Virus Vaccine 2020-05-19 00:00:[address] [facility] Influenza Virus Vaccine 2020-05-19 00:00:[address] [facility] Influenza Virus Vaccine 2020-05-19 00:00:[address] [facility] Influenza Virus Vaccine 2020-05-19 00:00:[address] [facility] Influenza Virus Vaccine 2020-05-19 00:00:[address] [facility] Influenza Virus Vaccine 2020-05-19 00:00:[address] [facility] Influenza Virus Vaccine 2020-05-19 00:00:[address] [facility] Influenza Virus Vaccine 2020-05-19 00:00:[address] [facility] Influenza Virus Vaccine 2020-05-19 00:00:[address] [facility] Influenza Virus Vaccine 2020-05-19 00:00:[address] [facility] Influenza Virus Vaccine 2020-05-19 00:00:[address] [facility] Influenza Virus Vaccine 2020-05-19 00:00:[address] [facility] Influenza Virus Vaccine 2020-05-19 00:00:[address] [facility] Influenza Virus Vaccine 2020-05-19 00:00:[address] [facility] Influenza Virus Vaccine 2020-05-19 00:00:[address] [facility] Influenza Virus Vaccine 2020-05-19 00:00:[address] [facility] Influenza Virus Vaccine 2020-05-19 00:00:[address] [facility] Influenza Virus Vaccine 2020-05-19 00:00:[address] [facility] Influenza Virus Vaccine 2020-05-19 00:00:[address] [facility] Influenza Virus Vaccine 2020-05-19 00:00:[address] [facility] Influenza Virus Vaccine 2020-05-19 00:00:[address] [facility] Influenza Virus Vaccine 2020-05-19 00:00:[address] [facility] Influenza Virus Vaccine 2020-05-19 00:00:[address] [facility] Influenza Virus Vaccine 2020-05-19 00:00:[address] [facility] Influenza Virus Vaccine 2020-05-19 00:00:[address] [facility] Influenza Virus Vaccine 2020-05-19 00:00:[address] [facility] Influenza Virus Vaccine 2020-05-19 00:00:[address] [facility] Influenza Virus Vaccine 2020-05-19 00:00:[address] [facility] Influenza Virus Vaccine 2020-05-19 00:00:[address] [facility] Influenza Virus Vaccine 2020-05-19 00:00:[address] [facility] Influenza Virus Vaccine 2020-05-19 00:00:[address] [facility] Influenza Virus Vaccine 2020-05-19 00:00:[address] [facility] Influenza Virus Vaccine 2020-05-19 00:00:[address] [facility] Influenza Virus Vaccine 2020-05-19 00:00:[address] [facility] Influenza Virus Vaccine 2020-05-19 00:00:[address] [facility] Influenza Virus Vaccine 2020-05-19 00:00:[address] [facility] Influenza Virus Vaccine 2020-05-19 00:00:[address] [facility] Influenza Virus Vaccine 2020-05-19 00:00:[address] [facility] Influenza Virus Vaccine 2020-05-19 00:00:[address] [facility] Influenza Virus Vaccine 2020-05-19 00:00:[address] [facility] Influenza Virus Vaccine 2020-05-19 00:00:[address] [facility] Influenza Virus Vaccine 2020-05-19 00:00:[address] [facility] Influenza Virus Vaccine 2020-05-19 00:00:[address] [facility] Influenza Virus Vaccine 2020-05-19 00:00:[address] [facility] Influenza Virus Vaccine 2020-05-19 00:00:[address] [facility] Influenza Virus Vaccine 2020-05-19 00:00:[address] [facility] Influenza Virus Vaccine 2020-05-19 00:00:[address] [facility] Influenza Virus Vaccine 2020-05-19 00:00:[address] [facility] Influenza Virus Vaccine 2020-05-19 00:00:[address] [facility] Influenza Virus Vaccine 2020-05-19 00:00:[address] [facility] Influenza Virus Vaccine 2020-05-19 00:00:[address] [facility] Influenza Virus Vaccine 2020-05-19 00:00:[address] [facility] Influenza Virus Vaccine 2020-05-19 00:00:[address] [facility] Influenza Virus Vaccine 2020-05-19 00:00:[address] [facility] Influenza Virus Vaccine 2020-05-19 00:00:[address] [facility] Influenza Virus Vaccine 2020-05-19 00:00:[address] [facility] Influenza Virus Vaccine 2020-05-19 00:00:[address] [facility] Influenza Virus Vaccine 2020-05-19 00:00:[address] [facility] Influenza Virus Vaccine 2020-05-19 00:00:[address] [facility] Influenza Virus Vaccine 2020-05-19 00:00:[address] [facility] Influenza Virus Vaccine 2020-05-19 00:00:[address] [facility] Influenza Virus Vaccine 2020-05-19 00:00:[address] [facility] Influenza Virus Vaccine 2020-05-19 00:00:[address] [facility] Influenza Virus Vaccine Recomb Quad IM, Preserv and ABX Free 18-64 YRS 2020-05-16 00:00:[address] [facility] Influenza Virus Vaccine Recomb Quad IM, Preserv and ABX Free 18-64 YRS 2020-05-16 00:00:[address] [facility] Influenza Virus Vaccine Recomb Quad IM, Preserv and ABX Free 18-64 YRS 2020-05-16 00:00:[address] [facility] Influenza Virus Vaccine Recomb Quad IM, Preserv and ABX Free 18-64 YRS 2020-05-16 00:00:[address] [facility] Influenza Virus Vaccine Recomb Quad IM, Preserv and ABX Free 18-64 YRS 2020-05-16 00:00:[address] [facility] Influenza Virus Vaccine Recomb Quad IM, Preserv and ABX Free 18-64 YRS 2020-05-16 00:00:[address] [facility] Influenza Virus Vaccine Recomb Quad IM, Preserv and ABX Free 18-64 YRS 2020-05-16 00:00:[address] [facility] Influenza Virus Vaccine Recomb Quad IM, Preserv and ABX Free 18-64 YRS 2020-05-16 00:00:[address] [facility] Influenza Virus Vaccine Recomb Quad IM, Preserv and ABX Free 18-64 YRS 2020-05-16 00:00:[address] [facility] Influenza Virus Vaccine Recomb Quad IM, Preserv and ABX Free 18-64 YRS 2020-05-16 00:00:[address] [facility] Influenza Virus Vaccine Recomb Quad IM, Preserv and ABX Free 18-64 YRS 2020-05-16 00:00:[address] [facility] Influenza Virus Vaccine Recomb Quad IM, Preserv and ABX Free 18-64 YRS 2020-05-16 00:00:[address] [facility] Influenza Virus Vaccine Recomb Quad IM, Preserv and ABX Free 18-64 YRS 2020-05-16 00:00:[address] [facility] Influenza Virus Vaccine Recomb Quad IM, Preserv and ABX Free 18-64 YRS 2020-05-16 00:00:[address] [facility] Influenza Virus Vaccine Recomb Quad IM, Preserv and ABX Free 18-64 YRS 2020-05-16 00:00:[address] [facility] Influenza Virus Vaccine Recomb Quad IM, Preserv and ABX Free 18-64 YRS 2020-05-16 00:00:[address] [facility] Influenza Virus Vaccine Recomb Quad IM, Preserv and ABX Free 18-64 YRS 2020-05-16 00:00:[address] [facility] Influenza Virus Vaccine Recomb Quad IM, Preserv and ABX Free 18-64 YRS 2020-05-16 00:00:[address] [facility] Influenza Virus Vaccine Recomb Quad IM, Preserv and ABX Free 18-64 YRS 2020-05-16 00:00:[address] [facility] Influenza Virus Vaccine Recomb Quad IM, Preserv and ABX Free 18-64 YRS 2020-05-16 00:00:[address] [facility] Influenza Virus Vaccine Recomb Quad IM, Preserv and ABX Free 18-64 YRS 2020-05-16 00:00:[address] [facility] Influenza Virus Vaccine Recomb Quad IM, Preserv and ABX Free 18-64 YRS 2020-05-16 00:00:[address] [facility] Influenza Virus Vaccine Recomb Quad IM, Preserv and ABX Free 18-64 YRS 2020-05-16 00:00:[address] [facility] Influenza Virus Vaccine Recomb Quad IM, Preserv and ABX Free 18-64 YRS 2020-05-16 00:00:[address] [facility] Influenza Virus Vaccine Recomb Quad IM, Preserv and ABX Free 18-64 YRS 2020-05-16 00:00:[address] [facility] Influenza Virus Vaccine Recomb Quad IM, Preserv and ABX Free 18-64 YRS 2020-05-16 00:00:[address] [facility] Influenza Virus Vaccine Recomb Quad IM, Preserv and ABX Free 18-64 YRS 2020-05-16 00:00:[address] [facility] Influenza Virus Vaccine Recomb Quad IM, Preserv and ABX Free 18-64 YRS 2020-05-16 00:00:[address] [facility] Influenza Virus Vaccine Recomb Quad IM, Preserv and ABX Free 18-64 YRS 2020-05-16 00:00:[address] [facility] Influenza Virus Vaccine Recomb Quad IM, Preserv and ABX Free 18-64 YRS 2020-05-16 00:00:[address] [facility] Influenza Virus Vaccine Recomb Quad IM, Preserv and ABX Free 18-64 YRS 2020-05-16 00:00:[address] [facility] Influenza Virus Vaccine Recomb Quad IM, Preserv and ABX Free 18-64 YRS 2020-05-16 00:00:[address] [facility] Influenza Virus Vaccine Recomb Quad IM, Preserv and ABX Free 18-64 YRS 2020-05-16 00:00:[address] [facility] Influenza Virus Vaccine Recomb Quad IM, Preserv and ABX Free 18-64 YRS 2020-05-16 00:00:[address] [facility] Influenza Virus Vaccine Recomb Quad IM, Preserv and ABX Free 18-64 YRS 2020-05-16 00:00:[address] [facility] Influenza Virus Vaccine Recomb Quad IM, Preserv and ABX Free 18-64 YRS 2020-05-16 00:00:[address] [facility] Influenza Virus Vaccine Recomb Quad IM, Preserv and ABX Free 18-64 YRS 2020-05-16 00:00:[address] [facility] Influenza Virus Vaccine Recomb Quad IM, Preserv and ABX Free 18-64 YRS 2020-05-16 00:00:[address] [facility] Influenza Virus Vaccine Recomb Quad IM, Preserv and ABX Free 18-64 YRS 2020-05-16 00:00:[address] [facility] Influenza Virus Vaccine Recomb Quad IM, Preserv and ABX Free 18-64 YRS 2020-05-16 00:00:[address] [facility] Influenza Virus Vaccine Recomb Quad IM, Preserv and ABX Free 18-64 YRS 2020-05-16 00:00:[address] [facility] Influenza Virus Vaccine Recomb Quad IM, Preserv and ABX Free 18-64 YRS 2020-05-16 00:00:[address] [facility] Influenza Virus Vaccine Recomb Quad IM, Preserv and ABX Free 18-64 YRS 2020-05-16 00:00:[address] [facility] Influenza Virus Vaccine Recomb Quad IM, Preserv and ABX Free 18-64 YRS 2020-05-16 00:00:[address] [facility] Influenza Virus Vaccine Recomb Quad IM, Preserv and ABX Free 18-64 YRS 2020-05-16 00:00:[address] [facility] Influenza Virus Vaccine Recomb Quad IM, Preserv and ABX Free 18-64 YRS 2020-05-16 00:00:[address] [facility] Influenza Virus Vaccine Recomb Quad IM, Preserv and ABX Free 18-64 YRS 2020-05-16 00:00:[address] [facility] Influenza Virus Vaccine Recomb Quad IM, Preserv and ABX Free 18-64 YRS 2020-05-16 00:00:[address] [facility] Influenza Virus Vaccine Recomb Quad IM, Preserv and ABX Free 18-64 YRS 2020-05-16 00:00:[address] [facility] Influenza Virus Vaccine Recomb Quad IM, Preserv and ABX Free 18-64 YRS 2020-05-16 00:00:[address] [facility] Influenza Virus Vaccine Recomb Quad IM, Preserv and ABX Free 18-64 YRS 2020-05-16 00:00:[address] [facility] Influenza Virus Vaccine Recomb Quad IM, Preserv and ABX Free 18-64 YRS 2020-05-16 00:00:[address] [facility] Influenza Virus Vaccine Recomb Quad IM, Preserv and ABX Free 18-64 YRS 2020-05-16 00:00:[address] [facility] Influenza Virus Vaccine Recomb Quad IM, Preserv and ABX Free 18-64 YRS 2020-05-16 00:00:[address] [facility] Influenza Virus Vaccine Recomb Quad IM, Preserv and ABX Free 18-64 YRS 2020-05-16 00:00:[address] [facility] Influenza Virus Vaccine Recomb Quad IM, Preserv and ABX Free 18-64 YRS 2020-05-16 00:00:[address] [facility] Influenza Virus Vaccine Recomb Quad IM, Preserv and ABX Free 18-64 YRS 2020-05-16 00:00:[address] [facility] Influenza Virus Vaccine Recomb Quad IM, Preserv and ABX Free 18-64 YRS 2020-05-16 00:00:[address] [facility] Influenza Virus Vaccine Recomb Quad IM, Preserv and ABX Free 18-64 YRS 2020-05-16 00:00:[address] [facility] Influenza Virus Vaccine Recomb Quad IM, Preserv and ABX Free 18-64 YRS 2020-05-16 00:00:[address] [facility] Influenza Virus Vaccine Recomb Quad IM, Preserv and ABX Free 18-64 YRS 2020-05-16 00:00:[address] [facility] Influenza Virus Vaccine Recomb Quad IM, Preserv and ABX Free 18-64 YRS 2020-05-16 00:00:[address] [facility] Influenza Virus Vaccine Recomb Quad IM, Preserv and ABX Free 18-64 YRS 2020-05-16 00:00:[address] [facility] TDAP (ADACEL) VACCINE 2019-05-21 00:00:[address] [facility] TDAP (ADACEL) VACCINE 2019-05-21 00:00:[address] [facility] TDAP (ADACEL) VACCINE 2019-05-21 00:00:[address] [facility] TDAP (ADACEL) VACCINE 2019-05-21 00:00:[address] [facility] TDAP (ADACEL) VACCINE 2019-05-21 00:00:[address] [facility] TDAP (ADACEL) VACCINE 2019-05-21 00:00:[address] [facility] TDAP (ADACEL) VACCINE 2019-05-21 00:00:[address] [facility] TDAP (ADACEL) VACCINE 2019-05-21 00:00:[address] [facility] TDAP (ADACEL) VACCINE 2019-05-21 00:00:[address] [facility] TDAP (ADACEL) VACCINE 2019-05-21 00:00:[address] [facility] TDAP (ADACEL) VACCINE 2019-05-21 00:00:[address] [facility] TDAP (ADACEL) VACCINE 2019-05-21 00:00:[address] [facility] TDAP (ADACEL) VACCINE 2019-05-21 00:00:[address] [facility] TDAP (ADACEL) VACCINE 2019-05-21 00:00:[address] [facility] TDAP (ADACEL) VACCINE 2019-05-21 00:00:[address] [facility] TDAP (ADACEL) VACCINE 2019-05-21 00:00:[address] [facility] TDAP (ADACEL) VACCINE 2019-05-21 00:00:[address] [facility] TDAP (ADACEL) VACCINE 2019-05-21 00:00:[address] [facility] TDAP (ADACEL) VACCINE 2019-05-21 00:00:[address] [facility] TDAP (ADACEL) VACCINE 2019-05-21 00:00:[address] [facility] TDAP (ADACEL) VACCINE 2019-05-21 00:00:[address] [facility] TDAP (ADACEL) VACCINE 2019-05-21 00:00:[address] [facility] TDAP (ADACEL) VACCINE 2019-05-21 00:00:[address] [facility] TDAP (ADACEL) VACCINE 2019-05-21 00:00:[address] [facility] TDAP (ADACEL) VACCINE 2019-05-21 00:00:[address] [facility] TDAP (ADACEL) VACCINE 2019-05-21 00:00:[address] [facility] TDAP (ADACEL) VACCINE 2019-05-21 00:00:[address] [facility] TDAP (ADACEL) VACCINE 2019-05-21 00:00:[address] [facility] TDAP (ADACEL) VACCINE 2019-05-21 00:00:[address] [facility] TDAP (ADACEL) VACCINE 2019-05-21 00:00:[address] [facility] TDAP (ADACEL) VACCINE 2019-05-21 00:00:[address] [facility] TDAP (ADACEL) VACCINE 2019-05-21 00:00:[address] [facility] TDAP (ADACEL) VACCINE 2019-05-21 00:00:[address] [facility] TDAP (ADACEL) VACCINE 2019-05-21 00:00:[address] [facility] TDAP (ADACEL) VACCINE 2019-05-21 00:00:[address] [facility] TDAP (ADACEL) VACCINE 2019-05-21 00:00:[address] [facility] TDAP (ADACEL) VACCINE 2019-05-21 00:00:[address] [facility] TDAP (ADACEL) VACCINE 2019-05-21 00:00:[address] [facility] TDAP (ADACEL) VACCINE 2019-05-21 00:00:[address] [facility] TDAP (ADACEL) VACCINE 2019-05-21 00:00:[address] [facility] TDAP (ADACEL) VACCINE 2019-05-21 00:00:[address] [facility] TDAP (ADACEL) VACCINE 2019-05-21 00:00:[address] [facility] TDAP (ADACEL) VACCINE 2019-05-21 00:00:[address] [facility] TDAP (ADACEL) VACCINE 2019-05-21 00:00:[address] [facility] TDAP (ADACEL) VACCINE 2019-05-21 00:00:[address] [facility] TDAP (ADACEL) VACCINE 2019-05-21 00:00:[address] [facility] TDAP (ADACEL) VACCINE 2019-05-21 00:00:[address] [facility] TDAP (ADACEL) VACCINE 2019-05-21 00:00:[address] [facility] TDAP (ADACEL) VACCINE 2019-05-21 00:00:[address] [facility] TDAP (ADACEL) VACCINE 2019-05-21 00:00:[address] [facility] TDAP (ADACEL) VACCINE 2019-05-21 00:00:[address] [facility] TDAP (ADACEL) VACCINE 2019-05-21 00:00:[address] [facility] TDAP (ADACEL) VACCINE 2019-05-21 00:00:[address] [facility] TDAP (ADACEL) VACCINE 2019-05-21 00:00:[address] [facility] TDAP (ADACEL) VACCINE 2019-05-21 00:00:[address] [facility] TDAP (ADACEL) VACCINE 2019-05-21 00:00:[address] [facility] TDAP (ADACEL) VACCINE 2019-05-21 00:00:[address] [facility] TDAP (ADACEL) VACCINE 2019-05-21 00:00:[address] [facility] TDAP (ADACEL) VACCINE 2019-05-21 00:00:[address] [facility] TDAP (ADACEL) VACCINE 2019-05-21 00:00:[address] [facility] TDAP (ADACEL) VACCINE 2019-05-21 00:00:[address] [facility] TDAP (ADACEL) VACCINE 2019-05-21 00:00:[address] [facility] TDAP (ADACEL) VACCINE 2019-05-21 00:00:[address] [facility] Influenza Virus Vaccine Quad .5 mL IM 6+ MO 2019-02-06 00:00:[address] [facility] Influenza Virus Vaccine Quad .5 mL IM 6+ MO 2019-02-06 00:00:[address] [facility] Influenza Virus Vaccine Quad .5 mL IM 6+ MO 2019-02-06 00:00:[address] [facility] Influenza Virus Vaccine Quad .5 mL IM 6+ MO 2019-02-06 00:00:[address] [facility] [facility]ine Quad .5 mL IM 6+ MO 2019-02-06 00:00:[address] [facility] Influenza Virus Vaccine Quad .5 mL IM 6+ MO 2019-02-06 00:00:[address] [facility] Influenza Virus Vaccine Quad .5 mL IM 6+ MO 2019-02-06 00:00:[address] [facility] Influenza Virus Vaccine Quad .5 mL IM 6+ MO 2019-02-06 00:00:[address] [facility] Influenza Virus Vaccine Quad .5 mL IM 6+ MO 2019-02-06 00:00:[address] [facility] Influenza Virus Vaccine Quad .5 mL IM 6+ MO 2019-02-06 00:00:[address] [facility] Influenza Virus Vaccine Quad .5 mL IM 6+ MO 2019-02-06 00:00:[address] [facility] Influenza Virus Vaccine Quad .5 mL IM 6+ MO 2019-02-06 00:00:[address] [facility] Influenza Virus Vaccine Quad .5 mL IM 6+ MO 2019-02-06 00:00:[address] [facility] Influenza Virus Vaccine Quad .5 mL IM 6+ MO 2019-02-06 00:00:[address] [facility] Influenza Virus Vaccine Quad .5 mL IM 6+ MO 2019-02-06 00:00:[address] [facility] Influenza Virus Vaccine Quad .5 mL IM 6+ MO 2019-02-06 00:00:[address] [facility] Influenza Virus Vaccine Quad .5 mL IM 6+ MO 2019-02-06 00:00:[address] [facility] Influenza Virus Vaccine Quad .5 mL IM 6+ MO 2019-02-06 00:00:[address] [facility] Influenza Virus Vaccine Quad .5 mL IM 6+ MO 2019-02-06 00:00:[address] [facility] Influenza Virus Vaccine Quad .5 mL IM 6+ MO 2019-02-06 00:00:[address] [facility] Influenza Virus Vaccine Quad .5 mL IM 6+ MO 2019-02-06 00:00:[address] [facility] Influenza Virus Vaccine Quad .5 mL IM 6+ MO 2019-02-06 00:00:[address] [facility] Influenza Virus Vaccine Quad .5 mL IM 6+ MO 2019-02-06 00:00:[address] [facility] Influenza Virus Vaccine Quad .5 mL IM 6+ MO 2019-02-06 00:00:[address] [facility] Influenza Virus Vaccine Quad .5 mL IM 6+ MO 2019-02-06 00:00:[address] [facility] Influenza Virus Vaccine Quad .5 mL IM 6+ MO 2019-02-06 00:00:[address] [facility] Influenza Virus Vaccine Quad .5 mL IM 6+ MO 2019-02-06 00:00:[address] [facility] Influenza Virus Vaccine Quad .5 mL IM 6+ MO 2019-02-06 00:00:[address] [facility] Influenza Virus Vaccine Quad .5 mL IM 6+ MO 2019-02-06 00:00:[address] [facility] Influenza Virus Vaccine Quad .5 mL IM 6+ MO 2019-02-06 00:00:[address] [facility] Influenza Virus Vaccine Quad .5 mL IM 6+ MO 2019-02-06 00:00:[address] [facility] Influenza Virus Vaccine Quad .5 mL IM 6+ MO 2019-02-06 00:00:[address] [facility] Influenza Virus Vaccine Quad .5 mL IM 6+ MO 2019-02-06 00:00:[address] [facility] Influenza Virus Vaccine Quad .5 mL IM 6+ MO 2019-02-06 00:00:[address] [facility] Influenza Virus Vaccine Quad .5 mL IM 6+ MO 2019-02-06 00:00:[address] [facility] Influenza Virus Vaccine Quad .5 mL IM 6+ MO 2019-02-06 00:00:[address] [facility] Influenza Virus Vaccine Quad .5 mL IM 6+ MO 2019-02-06 00:00:[address] [facility] Influenza Virus Vaccine Quad .5 mL IM 6+ MO 2019-02-06 00:00:[address] [facility] Influenza Virus Vaccine Quad .5 mL IM 6+ MO 2019-02-06 00:00:[address] [facility] Influenza Virus Vaccine Quad .5 mL IM 6+ MO 2019-02-06 00:00:[address] [facility] Influenza Virus Vaccine Quad .5 mL IM 6+ MO 2019-02-06 00:00:[address] [facility] Influenza Virus Vaccine Quad .5 mL IM 6+ MO 2019-02-06 00:00:[address] [facility] Influenza Virus Vaccine Quad .5 mL IM 6+ MO 2019-02-06 00:00:[address] [facility] Influenza Virus Vaccine Quad .5 mL IM 6+ MO 2019-02-06 00:00:[address] [facility] Influenza Virus Vaccine Quad .5 mL IM 6+ MO 2019-02-06 00:00:[address] [facility] Influenza Virus Vaccine Quad .5 mL IM 6+ MO 2019-02-06 00:00:[address] [facility] Influenza Virus Vaccine Quad .5 mL IM 6+ MO 2019-02-06 00:00:[address] [facility] Influenza Virus Vaccine Quad .5 mL IM 6+ MO 2019-02-06 00:00:[address] [facility] Influenza Virus Vaccine Quad .5 mL IM 6+ MO 2019-02-06 00:00:[address] [facility] Influenza Virus Vaccine Quad .5 mL IM 6+ MO 2019-02-06 00:00:[address] [facility] Influenza Virus Vaccine Quad .5 mL IM 6+ MO 2019-02-06 00:00:[address] [facility] Influenza Virus Vaccine Quad .5 mL IM 6+ MO 2019-02-06 00:00:[address] [facility] Influenza Virus Vaccine Quad .5 mL IM 6+ MO 2019-02-06 00:00:[address] [facility] Influenza Virus Vaccine Quad .5 mL IM 6+ MO 2019-02-06 00:00:[address] [facility] Influenza Virus Vaccine Quad .5 mL IM 6+ MO 2019-02-06 00:00:[address] [facility] Influenza Virus Vaccine Quad .5 mL IM 6+ MO 2019-02-06 00:00:[address] [facility] Influenza Virus Vaccine Quad .5 mL IM 6+ MO 2019-02-06 00:00:[address] [facility] Influenza Virus Vaccine Quad .5 mL IM 6+ MO 2019-02-06 00:00:[address] [facility] Influenza Virus Vaccine Quad .5 mL IM 6+ MO 2019-02-06 00:00:[address] [facility] Influenza Virus Vaccine Quad .5 mL IM 6+ MO 2019-02-06 00:00:[address] [facility] Influenza Virus Vaccine Quad .5 mL IM 6+ MO (FLUZONE/FLULAVAL/F LUARIX) 2019-02-06 00:00:[address] [facility] Influenza Virus Vaccine Quad .5 mL IM 6+ MO (FLUZONE/FLULAVAL/F LUARIX) 2019-02-06 00:00:[address] [facility] Influenza Virus Vaccine Quad .5 mL IM 6+ MO (FLUZONE/FLULAVAL/F LUARIX) 2019-02-06 00:00:[address] [facility] Influenza Virus Vaccine Quad .5 mL IM 6+ MO (FLUZONE/FLULAVAL/F LUARIX) Unknown Completed [facility] TDAP (ADACEL) VACCINE Unknown Completed [facility] Influenza Virus Vaccine Recomb Quad IM, Preserv and ABX Free 18-[address] [facility] Influenza Virus Vaccine Unknown Completed [facility] Influenza Virus Vaccine Unknown Completed [facility] Influenza Virus Vaccine Quad IM, Preserv and ABX Free 6 MO-64 YRS (FLUCELVAX) Unknown Completed [facility] Influenza Virus Vaccine Quad .5 mL IM 6+ MO (FLUZONE/FLULAVAL/F LUARIX) Unknown Completed [facility] Influenza Virus Vaccine Quad .5 mL IM 6+ MO (FLUZONE/FLULAVAL/F LUARIX) Unknown Completed [facility] Influenza Virus Vaccine Quad .5 mL IM 6+ MO (FLUZONE/FLULAVAL/F LUARIX) Unknown Completed [facility] TDAP (ADACEL) VACCINE Unknown Completed [facility] Influenza Virus Vaccine Recomb Quad IM, Preserv and ABX Free 18-[address] [facility] Influenza Virus Vaccine Unknown Completed [facility] Influenza Virus Vaccine Unknown Completed [facility] Influenza Virus Vaccine Quad IM, Preserv and ABX Free 6 MO-64 YRS (FLUCELVAX) Unknown Completed [facility] Influenza Virus Vaccine Quad .5 mL IM 6+ MO (FLUZONE/FLULAVAL/F LUARIX) Unknown Completed [facility] Influenza Virus Vaccine Quad .5 mL IM 6+ MO (FLUZONE/FLULAVAL/F LUARIX) Unknown Completed [facility] Influenza Virus Vaccine Quad .5 mL IM 6+ MO (FLUZONE/FLULAVAL/F LUARIX) Unknown Completed [facility] TDAP (ADACEL) VACCINE Unknown Completed [facility] Influenza Virus Vaccine Recomb Quad IM, Preserv and ABX Free 18-[address] [facility] Influenza Virus Vaccine Unknown Completed [facility] Influenza Virus Vaccine Unknown Completed [facility] Influenza Virus Vaccine Quad .5 mL IM 6+ MO (FLUZONE/FLULAVAL/F LUARIX) Unknown Completed [facility] Influenza Virus Vaccine Quad .5 mL IM 6+ MO (FLUZONE/FLULAVAL/F LUARIX) Unknown Completed [facility] TDAP (ADACEL) VACCINE Unknown Completed [facility] Influenza Virus Vaccine Recomb Quad IM, Preserv and ABX Free 18-[address] [facility] Influenza Virus Vaccine Unknown Completed [facility] Influenza Virus Vaccine Unknown Completed [facility] Influenza Virus Vaccine Quad .5 mL IM 6+ MO (FLUZONE/FLULAVAL/F LUARIX) Unknown Completed [facility] Influenza Virus Vaccine Quad .5 mL IM 6+ MO (FLUZONE/FLULAVAL/F LUARIX) Unknown Completed [facility] TDAP (ADACEL) VACCINE Unknown Completed [facility] Influenza Virus Vaccine Recomb Quad IM, Preserv and ABX Free 18-[address] [facility] Influenza Virus Vaccine Unknown Completed [facility] Influenza Virus Vaccine Unknown Completed [facility] Influenza Virus Vaccine Quad .5 mL IM 6+ MO (FLUZONE/FLULAVAL/F LUARIX) Unknown Completed [facility] Influenza Virus Vaccine Quad .5 mL IM 6+ MO (FLUZONE/FLULAVAL/F LUARIX) Unknown Completed [facility] TDAP (ADACEL) VACCINE Unknown Completed [facility] Influenza Virus Vaccine Recomb Quad IM, Preserv and ABX Free 18-[address] [facility] Influenza Virus Vaccine Unknown Completed [facility] Influenza Virus Vaccine Unknown Completed [facility] Influenza Virus Vaccine Quad .5 mL IM 6+ MO (FLUZONE/FLULAVAL/F LUARIX) Unknown Completed [facility] Influenza Virus Vaccine Quad .5 mL IM 6+ MO (FLUZONE/FLULAVAL/F LUARIX) Unknown Completed [facility] TDAP (ADACEL) VACCINE Unknown Completed [facility] Influenza Virus Vaccine Recomb Quad IM, Preserv and ABX Free 18-[address] [facility] Influenza Virus Vaccine Unknown Completed [facility] Influenza Virus Vaccine Unknown Completed [facility] Influenza Virus Vaccine Quad .5 mL IM 6+ MO (FLUZONE/FLULAVAL/F LUARIX) Unknown Completed [facility] Influenza Virus Vaccine Quad .5 mL IM 6+ MO (FLUZONE/FLULAVAL/F LUARIX) Unknown Completed [facility] TDAP (ADACEL) VACCINE Unknown Completed [facility] Influenza Virus Vaccine Recomb Quad IM, Preserv and ABX Free 18-[address] [facility] Influenza Virus Vaccine Unknown Completed [facility] Influenza Virus Vaccine Unknown Completed [facility] Influenza Virus Vaccine Quad .5 mL IM 6+ MO (FLUZONE/FLULAVAL/F LUARIX) Unknown Completed [facility] Influenza Virus Vaccine Quad .5 mL IM 6+ MO (FLUZONE/FLULAVAL/F LUARIX) Unknown Completed [facility] TDAP (ADACEL) VACCINE Unknown Completed [facility] Influenza Virus Vaccine Recomb Quad IM, Preserv and ABX Free 18-[address] [facility] Influenza Virus Vaccine Unknown Completed [facility] Influenza Virus Vaccine Unknown Completed [facility] Influenza Virus Vaccine Quad .5 mL IM 6+ MO (FLUZONE/FLULAVAL/F LUARIX) Unknown Completed [facility] Influenza Virus Vaccine Quad .5 mL IM 6+ MO (FLUZONE/FLULAVAL/F LUARIX) Unknown Completed [facility] TDAP (ADACEL) VACCINE Unknown Completed [facility] Influenza Virus Vaccine Recomb Quad IM, Preserv and ABX Free 18-[address] [facility] Influenza Virus Vaccine Unknown Completed [facility] Influenza Virus Vaccine Unknown Completed [facility] Influenza Virus Vaccine Quad .5 mL IM 6+ MO (FLUZONE/FLULAVAL/F LUARIX) Unknown Completed [facility] Influenza Virus Vaccine Quad .5 mL IM 6+ MO (FLUZONE/FLULAVAL/F LUARIX) Unknown Completed [facility] TDAP (ADACEL) VACCINE Unknown Completed [facility] Influenza Virus Vaccine Recomb Quad IM, Preserv and ABX Free 18-[address] [facility] Influenza Virus Vaccine Unknown Completed [facility] Influenza Virus Vaccine Unknown Completed [facility] Influenza Virus Vaccine Quad .5 mL IM 6+ MO (FLUZONE/FLULAVAL/F LUARIX) Unknown Completed [facility] Influenza Virus Vaccine Quad .5 mL IM 6+ MO (FLUZONE/FLULAVAL/F LUARIX) Unknown Completed [facility] TDAP (ADACEL) VACCINE Unknown Completed [facility] Influenza Virus Vaccine Recomb Quad IM, Preserv and ABX Free 18-[address] [facility] Influenza Virus Vaccine Unknown Completed [facility] Influenza Virus Vaccine Unknown Completed [facility] Influenza Virus Vaccine Quad .5 mL IM 6+ MO (FLUZONE/FLULAVAL/F LUARIX) Unknown Completed [facility] Influenza Virus Vaccine Quad .5 mL IM 6+ MO (FLUZONE/FLULAVAL/F LUARIX) Unknown Completed [facility] TDAP (ADACEL) VACCINE Unknown Completed [facility] Influenza Virus Vaccine Recomb Quad IM, Preserv and ABX Free 18-[address] [facility] Influenza Virus Vaccine Unknown Completed [facility] Influenza Virus Vaccine Unknown Completed [facility] Influenza Virus Vaccine Quad .5 mL IM 6+ MO (FLUZONE/FLULAVAL/F LUARIX) Unknown Completed [facility] Influenza Virus Vaccine Quad .5 mL IM 6+ MO (FLUZONE/FLULAVAL/F LUARIX) Unknown Completed [facility] TDAP (ADACEL) VACCINE Unknown Completed [facility] Influenza Virus Vaccine Recomb Quad IM, Preserv and ABX Free 18-[address] [facility] Influenza Virus Vaccine Unknown Completed [facility] Influenza Virus Vaccine Unknown Completed [facility] Influenza Virus Vaccine Quad .5 mL IM 6+ MO (FLUZONE/FLULAVAL/F LUARIX) Unknown Completed [facility] Influenza Virus Vaccine Quad .5 mL IM 6+ MO (FLUZONE/FLULAVAL/F LUARIX) Unknown Completed [facility] TDAP (ADACEL) VACCINE Unknown Completed [facility] Influenza Virus Vaccine Recomb Quad IM, Preserv and ABX Free 18-[address] [facility] Influenza Virus Vaccine Unknown Completed [facility] Influenza Virus Vaccine Unknown Completed [facility] Influenza Virus Vaccine Quad .5 mL IM 6+ MO (FLUZONE/FLULAVAL/F LUARIX) Unknown Completed [facility] Influenza Virus Vaccine Quad .5 mL IM 6+ MO (FLUZONE/FLULAVAL/F LUARIX) Unknown Completed [facility] TDAP (ADACEL) VACCINE Unknown Completed [facility] Influenza Virus Vaccine Recomb Quad IM, Preserv and ABX Free 18-[address] [facility] Influenza Virus Vaccine Unknown Completed [facility] Influenza Virus Vaccine Unknown Completed [facility] Influenza Virus Vaccine Quad .5 mL IM 6+ MO (FLUZONE/FLULAVAL/F LUARIX) Unknown Completed [facility] Influenza Virus Vaccine Quad .5 mL IM 6+ MO (FLUZONE/FLULAVAL/F LUARIX) Unknown Completed [facility] TDAP (ADACEL) VACCINE Unknown Completed [facility] Influenza Virus Vaccine Recomb Quad IM, Preserv and ABX Free 18-[address] [facility] Influenza Virus Vaccine Unknown Completed [facility] Influenza Virus Vaccine Unknown Completed [facility] Influenza Virus Vaccine Quad .5 mL IM 6+ MO (FLUZONE/FLULAVAL/F LUARIX) Unknown Completed [facility] Influenza Virus Vaccine Quad .5 mL IM 6+ MO (FLUZONE/FLULAVAL/F LUARIX) Unknown Completed [facility] TDAP (ADACEL) VACCINE Unknown Completed [facility] Influenza Virus Vaccine Recomb Quad IM, Preserv and ABX Free 18-[address] [facility] Influenza Virus Vaccine Unknown Completed [facility] Influenza Virus Vaccine Unknown Completed [facility] Influenza Virus Vaccine Quad .5 mL IM 6+ MO (FLUZONE/FLULAVAL/F LUARIX) Unknown Completed [facility] Influenza Virus Vaccine Quad .5 mL IM 6+ MO (FLUZONE/FLULAVAL/F LUARIX) Unknown Completed [facility] TDAP (ADACEL) VACCINE Unknown Completed [facility] Influenza Virus Vaccine Recomb Quad IM, Preserv and ABX Free 18-[address] [facility] Influenza Virus Vaccine Unknown Completed [facility] Influenza Virus Vaccine Quad .5 mL IM 6+ MO (FLUZONE/FLULAVAL/F LUARIX) Unknown Completed [facility] TDAP (ADACEL) VACCINE Unknown Completed [facility] Influenza Virus Vaccine Recomb Quad IM, Preserv and ABX Free 18-[address] [facility] Influenza Virus Vaccine Unknown Completed [facility] Influenza Virus Vaccine Quad .5 mL IM 6+ MO (FLUZONE/FLULAVAL/F LUARIX) Unknown Completed [facility] TDAP (ADACEL) VACCINE Unknown Completed [facility] Influenza Virus Vaccine Recomb Quad IM, Preserv and ABX Free 18-[address] [facility] Influenza Virus Vaccine Unknown Completed [facility] Influenza Virus Vaccine Quad .5 mL IM 6+ MO (FLUZONE/FLULAVAL/F LUARIX) Unknown Completed [facility] TDAP (ADACEL) VACCINE Unknown Completed [facility] Influenza Virus Vaccine Recomb Quad IM, Preserv and ABX Free 18-[address] [facility] Influenza Virus Vaccine Unknown Completed [facility] Influenza Virus Vaccine Quad .5 mL IM 6+ MO (FLUZONE/FLULAVAL/F LUARIX) Unknown Completed [facility] TDAP (ADACEL) VACCINE Unknown Completed [facility] Influenza Virus Vaccine Recomb Quad IM, Preserv and ABX Free 18-[address] [facility] Influenza Virus Vaccine Unknown Completed [facility] Influenza Virus Vaccine Quad .5 mL IM 6+ MO (FLUZONE/FLULAVAL/F LUARIX) Unknown Completed [facility] TDAP (ADACEL) VACCINE Unknown Completed [facility] Influenza Virus Vaccine Recomb Quad IM, Preserv and ABX Free 18-[address] [facility] Influenza Virus Vaccine Unknown Completed [facility] Influenza Virus Vaccine Quad .5 mL IM 6+ MO (FLUZONE/FLULAVAL/F LUARIX) Unknown Completed [facility] TDAP (ADACEL) VACCINE Unknown Completed [facility] Influenza Virus Vaccine Recomb Quad IM, Preserv and ABX Free 18-[address] [facility] Influenza Virus Vaccine Unknown Completed [facility] Influenza Virus Vaccine Quad .5 mL IM 6+ MO (FLUZONE/FLULAVAL/F LUARIX) Unknown Completed [facility] TDAP (ADACEL) VACCINE Unknown Completed [facility] Influenza Virus Vaccine Recomb Quad IM, Preserv and ABX Free 18-[address] [facility] Influenza Virus Vaccine Unknown Completed [facility] Influenza Virus Vaccine Quad .5 mL IM 6+ MO (FLUZONE/FLULAVAL/F LUARIX) Unknown Completed [facility] TDAP (ADACEL) VACCINE Unknown Completed [facility] Influenza Virus Vaccine Recomb Quad IM, Preserv and ABX Free 18-[address] [facility] Influenza Virus Vaccine Unknown Completed [facility] Influenza Virus Vaccine Quad .5 mL IM 6+ MO (FLUZONE/FLULAVAL/F LUARIX) Unknown Completed [facility] TDAP (ADACEL) VACCINE Unknown Completed [facility] Influenza Virus Vaccine Recomb Quad IM, Preserv and ABX Free 18-[address] [facility] Influenza Virus Vaccine Unknown Completed [facility] Influenza Virus Vaccine Quad .5 mL IM 6+ MO (FLUZONE/FLULAVAL/F LUARIX) Unknown Completed [facility] TDAP (ADACEL) VACCINE Unknown Completed [facility] Influenza Virus Vaccine Recomb Quad IM, Preserv and ABX Free 18-[address] [facility] Influenza Virus Vaccine Unknown Completed [facility] Influenza Virus Vaccine Quad .5 mL IM 6+ MO (FLUZONE/FLULAVAL/F LUARIX) Unknown Completed [facility] TDAP (ADACEL) VACCINE Unknown Completed [facility] Influenza Virus Vaccine Recomb Quad IM, Preserv and ABX Free 18-[address] [facility] Influenza Virus Vaccine Unknown Completed [facility] Influenza Virus Vaccine Quad .5 mL IM 6+ MO (FLUZONE/FLULAVAL/F LUARIX) Unknown Completed [facility] TDAP (ADACEL) VACCINE Unknown [facility] [facility] Recomb Quad IM, Preserv and ABX Free 18-[address] [facility] Influenza Virus Vaccine Unknown Completed [facility] Influenza Virus Vaccine Quad .5 mL IM 6+ MO (FLUZONE/FLULAVAL/F LUARIX) Unknown Completed [facility] TDAP (ADACEL) VACCINE Unknown Completed [facility] Influenza Virus Vaccine Recomb Quad IM, Preserv and ABX Free 18-[address] [facility] Influenza Virus Vaccine Unknown Completed [facility] Influenza Virus Vaccine Quad .5 mL IM 6+ MO (FLUZONE/FLULAVAL/F LUARIX) Unknown Completed [facility] TDAP (ADACEL) VACCINE Unknown Completed [facility] Influenza Virus Vaccine Recomb Quad IM, Preserv and ABX Free 18-[address] [facility] Influenza Virus Vaccine Unknown Completed [facility] Influenza Virus Vaccine Quad .5 mL IM 6+ MO (FLUZONE/FLULAVAL/F LUARIX) Unknown Completed [facility] TDAP (ADACEL) VACCINE Unknown Completed [facility] Influenza Virus Vaccine Recomb Quad IM, Preserv and ABX Free 18-[address] [facility] Influenza Virus Vaccine Unknown Completed [facility] Influenza Virus Vaccine Quad .5 mL IM 6+ MO (FLUZONE/FLULAVAL/F LUARIX) Unknown Completed [facility] TDAP (ADACEL) VACCINE Unknown Completed [facility] Influenza Virus Vaccine Recomb Quad IM, Preserv and ABX Free 18-[address] [facility] Influenza Virus Vaccine Unknown Completed [facility] Influenza Virus Vaccine Quad .5 mL IM 6+ MO (FLUZONE/FLULAVAL/F LUARIX) Unknown Completed [facility] TDAP (ADACEL) VACCINE Unknown Completed [facility] Influenza Virus Vaccine Recomb Quad IM, Preserv and ABX Free 18-[address] [facility] Influenza Virus Vaccine Unknown Completed [facility] Influenza Virus Vaccine Quad .5 mL IM 6+ MO (FLUZONE/FLULAVAL/F LUARIX) Unknown Completed [facility] TDAP (ADACEL) VACCINE Unknown Completed [facility] Influenza Virus Vaccine Recomb Quad IM, Preserv and ABX Free 18-[address] [facility] Influenza Virus Vaccine Unknown Completed [facility] Influenza Virus Vaccine Quad .5 mL IM 6+ MO (FLUZONE/FLULAVAL/F LUARIX) Unknown Completed [facility] TDAP (ADACEL) VACCINE Unknown Completed [facility] Influenza Virus Vaccine Recomb Quad IM, Preserv and ABX Free 18-[address] [facility] Influenza Virus Vaccine Unknown Completed [facility] Influenza Virus Vaccine Quad .5 mL IM 6+ MO (FLUZONE/FLULAVAL/F LUARIX) Unknown Completed [facility] TDAP (ADACEL) VACCINE Unknown Completed [facility] Influenza Virus Vaccine Recomb Quad IM, Preserv and ABX Free 18-[address] [facility] Influenza Virus Vaccine Unknown Completed [facility] Influenza Virus Vaccine Quad .5 mL IM 6+ MO (FLUZONE/FLULAVAL/F LUARIX) Unknown Completed [facility] TDAP (ADACEL) VACCINE Unknown Completed [facility] Influenza Virus Vaccine Recomb Quad IM, Preserv and ABX Free 18-[address] [facility] Influenza Virus Vaccine Unknown Completed [facility] Influenza Virus Vaccine Quad .5 mL IM 6+ MO (FLUZONE/FLULAVAL/F LUARIX) Unknown Completed [facility] TDAP (ADACEL) VACCINE Unknown Completed [facility] Influenza Virus Vaccine Recomb Quad IM, Preserv and ABX Free 18-[address] [facility] Influenza Virus Vaccine Unknown Completed [facility] Influenza Virus Vaccine Quad .5 mL IM 6+ MO (FLUZONE/FLULAVAL/F LUARIX) Unknown Completed [facility] TDAP (ADACEL) VACCINE Unknown Completed [facility] Influenza Virus Vaccine Recomb Quad IM, Preserv and ABX Free 18-[address] [facility] Influenza Virus Vaccine Unknown Completed [facility] Influenza Virus Vaccine Quad .5 mL IM 6+ MO (FLUZONE/FLULAVAL/F LUARIX) Unknown Completed [facility] TDAP (ADACEL) VACCINE Unknown Completed [facility] Influenza Virus Vaccine Recomb Quad IM, Preserv and ABX Free 18-[address] [facility] Influenza Virus Vaccine Unknown Completed [facility] Influenza Virus Vaccine Quad .5 mL IM 6+ MO (FLUZONE/FLULAVAL/F LUARIX) Unknown Completed [facility] TDAP (ADACEL) VACCINE Unknown Completed [facility] Influenza Virus Vaccine Recomb Quad IM, Preserv and ABX Free 18-[address] [facility] Influenza Virus Vaccine Unknown Completed [facility] Influenza Virus Vaccine Quad .5 mL IM 6+ MO (FLUZONE/FLULAVAL/F LUARIX) Unknown Completed [facility] TDAP (ADACEL) VACCINE Unknown Completed [facility] Influenza Virus Vaccine Recomb Quad IM, Preserv and ABX Free 18-[address] [facility] Influenza Virus Vaccine Unknown Completed [facility] Influenza Virus Vaccine Quad .5 mL IM 6+ MO (FLUZONE/FLULAVAL/F LUARIX) Unknown Completed [facility] TDAP (ADACEL) VACCINE Unknown Completed [facility] Influenza Virus Vaccine Recomb Quad IM, Preserv and ABX Free 18-[address] [facility] Influenza Virus Vaccine Unknown Completed [facility] Influenza Virus Vaccine Quad .5 mL IM 6+ MO (FLUZONE/FLULAVAL/F LUARIX) Unknown Completed [facility] TDAP (ADACEL) VACCINE Unknown Completed [facility] Influenza Virus Vaccine Recomb Quad IM, Preserv and ABX Free 18-[address] [facility] Influenza Virus Vaccine Unknown Completed [facility] Influenza Virus Vaccine Quad .5 mL IM 6+ MO (FLUZONE/FLULAVAL/F LUARIX) Unknown Completed [facility] TDAP (ADACEL) VACCINE Unknown Completed [facility] Influenza Virus Vaccine Recomb Quad IM, Preserv and ABX Free 18-[address] [facility] Influenza Virus Vaccine Unknown Completed [facility] Influenza Virus Vaccine Quad .5 mL IM 6+ MO (FLUZONE/FLULAVAL/F LUARIX) Unknown Completed [facility] TDAP (ADACEL) VACCINE Unknown Completed [facility] Influenza Virus Vaccine Recomb Quad IM, Preserv and ABX Free 18-[address] [facility] Influenza Virus Vaccine Unknown Completed [facility] Influenza Virus Vaccine Quad .5 mL IM 6+ MO (FLUZONE/FLULAVAL/F LUARIX) Unknown Completed [facility] TDAP (ADACEL) VACCINE Unknown Completed [facility] Influenza Virus Vaccine Recomb Quad IM, Preserv and ABX Free 18-[address] [facility] Influenza Virus Vaccine Unknown Completed [facility] Influenza Virus Vaccine Quad .5 mL IM 6+ MO (FLUZONE/FLULAVAL/F LUARIX) Unknown Completed [facility] TDAP (ADACEL) VACCINE Unknown Completed [facility] Influenza Virus Vaccine Recomb Quad IM, Preserv and ABX Free 18-[address] [facility] Influenza Virus Vaccine Unknown Completed [facility] Influenza Virus Vaccine Quad .5 mL IM 6+ MO (FLUZONE/FLULAVAL/F LUARIX) Unknown Completed [facility] TDAP (ADACEL) VACCINE Unknown Completed [facility] Influenza Virus Vaccine Recomb Quad IM, Preserv and ABX Free 18-[address] [facility] Influenza Virus Vaccine Unknown Completed [facility] Influenza Virus Vaccine Quad .5 mL IM 6+ MO (FLUZONE/FLULAVAL/F LUARIX) Unknown Completed [facility] TDAP (ADACEL) VACCINE Unknown Completed [facility] Influenza Virus Vaccine Recomb Quad IM, Preserv and ABX Free 18-[address] [facility] Influenza Virus Vaccine Unknown Completed [facility] Influenza Virus Vaccine Quad .5 mL IM 6+ MO (FLUZONE/FLULAVAL/F LUARIX) Unknown Completed [facility] TDAP (ADACEL) VACCINE Unknown Completed [facility] Influenza Virus Vaccine Recomb Quad IM, Preserv and ABX Free 18-[address] [facility] Influenza Virus Vaccine Unknown Completed [facility] Influenza Virus Vaccine Quad .5 mL IM 6+ MO (FLUZONE/FLULAVAL/F LUARIX) Unknown Completed [facility] TDAP (ADACEL) VACCINE Unknown Completed [facility] Influenza Virus Vaccine Quad .5 mL IM 6+ MO (FLUZONE/FLULAVAL/F LUARIX) Unknown Completed [facility] TDAP (ADACEL) VACCINE Unknown Completed [facility] Influenza Virus Vaccine Quad .5 mL IM 6+ MO (FLUZONE/FLULAVAL/F LUARIX) Unknown Completed [facility] TDAP (ADACEL) VACCINE Unknown Completed [facility] Influenza Virus Vaccine Quad .5 mL IM 6+ MO (FLUZONE/FLULAVAL/F LUARIX) Unknown Completed [facility] TDAP (ADACEL) VACCINE Unknown Completed [facility] Influenza Virus Vaccine Quad .5 mL IM 6+ MO (FLUZONE/FLULAVAL/F LUARIX) Unknown Completed [facility] TDAP (ADACEL) VACCINE Unknown Completed [facility] Influenza Virus Vaccine Quad .5 mL IM 6+ MO (FLUZONE/FLULAVAL/F LUARIX) Unknown Completed [facility] TDAP (ADACEL) VACCINE Unknown Completed [facility] Influenza Virus Vaccine Quad .5 mL IM 6+ MO (FLUZONE/FLULAVAL/F LUARIX) Unknown Completed [facility] TDAP (ADACEL) VACCINE Unknown Completed [facility] Influenza Virus Vaccine Quad .5 mL IM 6+ MO (FLUZONE/FLULAVAL/F LUARIX) Unknown Completed [facility] TDAP (ADACEL) VACCINE Unknown Completed [facility] Influenza Virus Vaccine Quad .5 mL IM 6+ MO (FLUZONE/FLULAVAL/F LUARIX) Unknown Completed [facility] TDAP (ADACEL) VACCINE Unknown Completed [facility] Influenza Virus Vaccine Quad .5 mL IM 6+ MO (FLUZONE/FLULAVAL/F LUARIX) Unknown Completed [facility] TDAP (ADACEL) VACCINE Unknown Completed [facility] Influenza Virus Vaccine Recomb Quad IM, Preserv and ABX Free 18-[address] [facility] Influenza Virus Vaccine Unknown Completed [facility] Influenza Virus Vaccine Unknown Completed [facility] Influenza Virus Vaccine Quad IM, Preserv and ABX Free 6 MO-64 YRS (FLUCELVAX) Unknown Completed [facility] Influenza Virus Vaccine Quad .5 mL IM 6+ MO (FLUZONE/FLULAVAL/F LUARIX) Unknown Completed [facility] Influenza Virus Vaccine Quad .5 mL IM 6+ MO (FLUZONE/FLULAVAL/F LUARIX) Unknown Completed [facility] Influenza Virus Vaccine Quad .5 mL IM 6+ MO (FLUZONE/FLULAVAL/F LUARIX) Unknown Completed [facility] TDAP (ADACEL) VACCINE Unknown Completed [facility] Influenza Virus Vaccine Recomb Quad IM, Preserv and ABX Free 18-[address] [facility] Influenza Virus Vaccine Unknown Completed [facility] Influenza Virus Vaccine Unknown Completed [facility] Influenza Virus Vaccine Quad IM, Preserv and ABX Free 6 MO-64 YRS (FLUCELVAX) Unknown Completed [facility] Influenza Virus Vaccine Quad .5 mL IM 6+ MO (FLUZONE/FLULAVAL/F LUARIX) Unknown Completed [facility] Influenza Virus Vaccine Quad .5 mL IM 6+ MO (FLUZONE/FLULAVAL/F LUARIX) Unknown Completed [facility] Vital Signs Vital Name Observation Time Observation Value Comments S ource Systolic blood pressure 2023-05-19 17:24:00 129 mm[Hg] [facility] Diastolic blood pressure 2023-05-19 17:24:00 83 mm[Hg] [facility] Heart rate 2023-05-19 17:24:00 77 /min [facility] Respiratory rate 2023-05-19 17:24:00 15 /min [facility] Oxygen saturation in Arterial blood by Pulse oximetry 2023-05-19 17:24:00 100 /min [facility] Body temperature 2023-05-19 14:50:[address] [facility] Body height 2023-05-19 14:50:00 154.9 cm [facility] Body weight 2023-05-19 14:50:00 58.968 kg [facility] BMI 2023-05-19 14:50:00 24.56 kg/m2 [facility] Systolic blood pressure 2023-01-15 16:56:00 132 mm[Hg] [facility] Diastolic blood pressure 2023-01-15 16:56:00 91 mm[Hg] [facility] Heart rate 2023-01-15 16:56:00 67 /min [facility] Body temperature 2023-01-15 16:56:[address] [facility] Respiratory rate 2023-01-15 16:56:00 20 /min [facility] Oxygen saturation in Arterial blood by Pulse oximetry 2023-01-15 16:56:00 100 /min [facility] Body height 2023-01-12 09:05:00 154.9 cm [facility] Body weight 2023-01-12 09:05:00 58.968 kg [facility] BMI 2023-01-12 09:05:00 24.56 kg/m2 [facility] Systolic blood pressure 2022-11-21 21:40:00 122 mm[Hg] [facility] Diastolic blood pressure 2022-11-21 21:40:00 90 mm[Hg] [facility] Heart rate 2022-11-21 21:40:00 92 /min [facility] Respiratory rate 2022-11-21 21:40:00 16 /min [facility] Oxygen saturation in Arterial blood by Pulse oximetry 2022-11-21 21:40:00 99 /min [facility] Body temperature 2022-11-21 18:07:[address] [facility] Body weight 2022-11-21 18:07:00 68.04 kg [facility] BMI 2022-11-21 18:07:00 28.34 kg/m2 [facility] Systolic blood pressure 2022-09-05 17:22:00 139 mm[Hg] [facility] Diastolic blood pressure 2022-09-05 17:22:00 91 mm[Hg] [facility] Heart rate 2022-09-05 17:22:00 120 /min [facility] Respiratory rate 2022-09-05 17:22:00 18 /min [facility] Oxygen saturation in Arterial blood by Pulse oximetry 2022-09-05 17:22:00 99 /min [facility] Body temperature 2022-09-05 13:43:00 37.11 [facility] Body weight 2022-09-05 13:43:00 68.04 kg [facility] BMI 2022-09-05 13:43:00 28.34 kg/m2 [facility] Systolic blood pressure 2022-08-01 00:49:00 138 mm[Hg] [facility] Diastolic blood pressure 2022-08-01 00:49:00 104 mm[Hg] [facility] Heart rate 2022-08-01 00:49:00 108 /min [facility] Respiratory rate 2022-08-01 00:49:00 18 /min [facility] Oxygen saturation in Arterial blood by Pulse oximetry 2022-08-01 00:49:00 99 /min [facility] Body temperature 2022-07-31 22:52:00 37.11 [facility] Body height 2022-07-31 22:52:00 154.9 cm [facility] Body weight 2022-07-31 22:52:00 68.04 kg [facility] BMI 2022-07-31 22:52:00 28.34 kg/m2 [facility] Systolic blood pressure 2022-07-15 15:32:00 130 mm[Hg] [facility] Diastolic blood pressure 2022-07-15 15:32:00 90 mm[Hg] [facility] Heart rate 2022-07-15 15:31:00 81 /min [facility] Body temperature 2022-07-15 15:31:[address] [facility] Respiratory rate 2022-07-15 15:31:00 16 /min [facility] Body weight 2022-07-15 15:31:00 68.493 kg [facility] BMI 2022-07-15 15:31:00 28[facility]53 [facility] in Arterial blood by Pulse oximetry 2022-07-15 15:31:00 99 /min [facility] Systolic blood pressure 2022-06-23 15:26:00 111 mm[Hg] [facility] Diastolic blood pressure 2022-06-23 15:26:00 75 mm[Hg] [facility] Heart rate 2022-06-23 15:26:00 108 /min [facility] Body temperature 2022-06-23 15:26:[address] [facility] Respiratory rate 2022-06-23 15:26:00 18 /min [facility] Body height 2022-06-23 15:26:00 154.9 cm [facility] Body weight 2022-06-23 15:26:00 71.385 kg [facility] BMI 2022-06-23 15:26:00 29.74 kg/m2 [facility] Oxygen saturation in Arterial blood by Pulse oximetry 2022-06-23 15:26:00 99 /min [facility] Systolic blood pressure 2022-05-05 22:05:00 126 mm[Hg] [facility] Diastolic blood pressure 2022-05-05 22:05:00 75 mm[Hg] [facility] Heart rate 2022-05-05 22:05:00 99 /min [facility] Respiratory rate 2022-05-05 22:05:00 16 /min [facility] Oxygen saturation in Arterial blood by Pulse oximetry 2022-05-05 22:05:00 99 /min [facility] Body temperature 2022-05-05 18:24:[address] [facility] Body height 2022-05-05 18:24:00 154.9 cm [facility] Body weight 2022-05-05 18:24:00 54.432 kg [facility] BMI 2022-05-05 18:24:00 22.67 kg/m2 [facility] Systolic blood pressure 2022-04-26 14:28:00 135 mm[Hg] [facility] Diastolic blood pressure 2022-04-26 14:28:00 95 mm[Hg] [facility] Heart rate 2022-04-26 14:28:00 93 /min [facility] Body temperature 2022-04-26 14:28:[address] [facility] Respiratory rate 2022-04-26 14:28:00 18 /min [facility] Body height 2022-04-26 14:28:00 154.9 cm [facility] Body weight 2022-04-26 14:28:00 54.432 kg [facility] BMI 2022-04-26 14:28:00 22.67 kg/m2 [facility] Oxygen saturation in Arterial blood by Pulse oximetry 2022-04-26 14:28:00 100 /min [facility] Systolic blood pressure 2022-04-26 00:21:00 151 mm[Hg] [facility] Diastolic blood pressure 2022-04-26 00:21:00 98 mm[Hg] [facility] Heart rate 2022-04-26 00:21:00 98 /min [facility] Body temperature 2022-04-26 00:21:[address] [facility] Respiratory rate 2022-04-26 00:21:00 18 /min [facility] Body height 2022-04-26 00:21:00 154.9 cm [facility] Body weight 2022-04-26 00:21:00 54.432 kg [facility] BMI 2022-04-26 00:21:00 22.67 kg/m2 [facility] Oxygen saturation in Arterial blood by Pulse oximetry 2022-04-26 00:21:00 100 /min [facility] Systolic blood pressure 2022-04-09 14:39:00 122 mm[Hg] [facility] Diastolic blood pressure 2022-04-09 14:39:00 84 mm[Hg] [facility] Heart rate 2022-04-09 14:39:00 96 /min [facility] Body height 2022-04-09 14:39:00 154.9 cm [facility] Body weight 2022-04-09 14:39:00 60.328 kg [facility] BMI 2022-04-09 14:39:00 25.13 kg/m2 [facility] Oxygen saturation in Arterial blood by Pulse oximetry 2022-04-09 14:39:00 98 /min [facility] Systolic blood pressure 2022-04-07 22:43:36 131 mm[Hg] [facility] Diastolic blood pressure 2022-04-07 22:43:36 83 mm[Hg] [facility] Heart rate 2022-04-07 22:43:36 113 /min [facility] Respiratory rate 2022-04-07 22:43:36 18 /min [facility] Oxygen saturation in Arterial blood by Pulse oximetry 2022-04-07 22:43:36 97 /min [facility] Body temperature 2022-04-07 19:41:[address] [facility] Body height 2022-04-07 19:41:00 154.9 cm [facility] Body weight 2022-04-07 19:41:00 60.328 kg [facility] BMI 2022-04-07 19:41:00 25.13 kg/m2 [facility] Systolic blood pressure 2022-03-24 19:00:00 125 mm[Hg] [facility] Diastolic blood pressure 2022-03-24 19:00:00 86 mm[Hg] [facility] Heart rate 2022-03-24 19:00:00 93 /min [facility] Respiratory rate 2022-03-24 19:00:00 17 /min [facility] Oxygen saturation in Arterial blood by Pulse oximetry 2022-03-24 19:00:00 97 /min [facility] Body temperature 2022-03-24 13:33:00 36.78 [facility] Systolic blood pressure 2022-03-15 19:23:00 128 mm[Hg] [facility] Diastolic blood pressure 2022-03-15 19:23:00 89 mm[Hg] [facility] Heart rate 2022-03-15 19:23:00 104 /min [facility] Body weight 2022-03-15 19:23:00 60.328 kg [facility] BMI 2022-03-15 19:23:00 25.13 kg/m2 [facility] Oxygen saturation in Arterial blood by Pulse oximetry 2022-03-15 19:23:00 98 /min [facility] Systolic blood pressure 2022-03-15 15:02:00 115 mm[Hg] [facility] Diastolic blood pressure 2022-03-15 15:02:00 70 mm[Hg] [facility] Heart rate 2022-03-15 15:02:00 85 /min [facility] Respiratory rate 2022-03-15 15:02:00 20 /min [facility] Oxygen saturation in Arterial blood by Pulse oximetry 2022-03-15 15:02:00 99 /min [facility] Body temperature 2022-03-15 13:38:[address] [facility] Body height 2022-03-15 13:38:00 154.9 cm [facility] Body weight 2022-03-15 13:38:00 54.432 kg [facility] BMI 2022-03-15 13:38:00 22.67 kg/m2 [facility] Systolic blood pressure 2022-03-11 16:30:00 124 mm[Hg] [facility] Diastolic blood pressure 2022-03-11 16:30:00 88 mm[Hg] [facility] Heart rate 2022-03-11 16:30:00 93 /min [facility] Body temperature 2022-03-11 16:30:[address] [facility] Respiratory rate 2022-03-11 16:30:00 14 /min [facility] Oxygen saturation in Arterial blood by Pulse oximetry 2022-03-11 16:30:00 100 /min [facility] Body height 2022-03-11 14:19:00 154.9 cm [facility] Body weight 2022-03-11 14:19:00 58.968 kg [facility] BMI 2022-03-11 14:19:00 24.56 kg/m2 [facility] Systolic blood pressure 2022-02-27 14:14:00 140 mm[Hg] [facility] Diastolic blood pressure 2022-02-27 14:14:00 90 mm[Hg] [facility] Heart rate 2022-02-27 14:14:00 103 /min [facility] Body height 2022-02-27 14:14:00 154.9 cm [facility] Body weight 2022-02-27 14:14:00 59.194 kg [facility] BMI 2022-02-27 14:14:00 24.66 kg/m2 [facility] Oxygen saturation in Arterial blood by Pulse oximetry 2022-02-27 14:14:00 100 /min [facility] Systolic blood pressure 2022-02-27 13:19:00 131 mm[Hg] [facility] Diastolic blood pressure 2022-02-27 13:19:00 86 mm[Hg] [facility] Heart rate 2022-02-27 13:19:00 102 /min [facility] Body temperature 2022-02-27 13:19:[address] [facility] Body height 2022-02-27 13:19:00 154.9 cm [facility] Body weight 2022-02-27 13:19:00 58.968 kg [facility] BMI 2022-02-27 13:19:00 24.56 kg/m2 [facility] Oxygen saturation in Arterial blood by Pulse oximetry 2022-02-27 13:19:00 99 /min [facility] Systolic blood pressure 2022-02-21 08:06:00 135 mm[Hg] [facility] Diastolic blood pressure 2022-02-21 08:06:00 97 mm[Hg] [facility] Heart rate 2022-02-21 08:06:00 98 /min [facility] Respiratory rate 2022-02-21 08:06:00 16 /min [facility] Oxygen saturation in Arterial blood by Pulse oximetry 2022-02-21 08:06:00 97 /min [facility] Body temperature 2022-02-21 06:16:[address] [facility] Body height 2022-02-21 06:16:00 154.9 cm [facility] Body weight 2022-02-21 06:16:00 60.963 kg [facility] BMI 2022-02-21 06:16:00 25.39 kg/m2 [facility] Systolic blood pressure 2022 20:08:00 136 mm[Hg] [facility] Diastolic blood pressure 2022 20:08:00 96 mm[Hg] [facility] Heart rate 2022 20:08:00 100 /min [facility] Respiratory rate 2022 20:08:00 20 /min [facility] Oxygen saturation in Arterial blood by Pulse oximetry 2022 20:08:00 98 /min [facility] Body temperature 2022 16:56:[address] [facility] Body weight 2022 16:56:00 54.432 kg [facility] BMI 2022 16:56:00 22.67 kg/m2 [facility] Systolic blood pressure 2022-02-05 14:31:00 128 mm[Hg] [facility] Diastolic blood pressure 2022-02-05 14:31:00 84 mm[Hg] [facility] Heart rate 2022-02-05 14:31:00 86 /min [facility] Body temperature 2022-02-05 14:31:[address] [facility] Respiratory rate 2022-02-05 14:31:00 18 /min [facility] Body height 2022-02-05 14:31:00 154.9 cm [facility] Body weight 2022-02-05 14:31:00 54.432 kg [facility] BMI 2022-02-05 14:31:00 22.67 kg/m2 [facility] Oxygen saturation in Arterial blood by Pulse oximetry 2022-02-05 14:31:00 98 /min [facility] Systolic blood pressure 2022-01-18 14:50:00 144 mm[Hg] [facility] Diastolic blood pressure 2022-01-18 14:50:00 92 mm[Hg] [facility] Heart rate 2022-01-18 14:50:00 94 /min [facility] Respiratory rate 2022-01-18 14:50:00 20 /min [facility] Oxygen saturation in Arterial blood by Pulse oximetry 2022-01-18 14:50:00 99 /min [facility] Body weight 2022-01-18 10:18:00 54.432 kg [facility] BMI 2022-01-18 10:18:00 22.67 kg/m2 [facility] Body temperature 2022-01-18 10:15:[address] [facility] Systolic blood pressure 2022-01-15 15:48:26 125 mm[Hg] [facility] Diastolic blood pressure 2022-01-15 15:48:26 85 mm[Hg] [facility] Heart rate 2022-01-15 15:48:26 95 /min [facility] Respiratory rate 2022-01-15 15:48:26 18 /min [facility] Oxygen saturation in Arterial blood by Pulse oximetry 2022-01-15 15:48:26 98 /min [facility] Body temperature 2022-01-15 13:32:[address] [facility] Body height 2022-01-15 13:32:00 154.9 cm [facility] Body weight 2022-01-15 13:32:00 54.432 kg [facility] BMI 2022-01-15 13:32:00 22.67 kg/m2 [facility] Systolic blood pressure 2022-01-09 00:37:11 127 mm[Hg] [facility] Diastolic blood pressure 2022-01-09 00:37:11 90 mm[Hg] [facility] Heart rate 2022-01-09 00:37:11 94 /min [facility] Body temperature 2022-01-09 00:37:[address] [facility] Respiratory rate 2022-01-09 00:37:11 16 /min [facility] Oxygen saturation in Arterial blood by Pulse oximetry 2022-01-09 00:37:11 97 /min [facility] Body height 2022-01-08 23:03:00 154.9 cm [facility] Body weight 2022-01-08 23:03:00 58.06 kg [facility] BMI 2022-01-08 23:03:00 24.19 kg/m2 [facility] Systolic blood pressure 2021-12-12 18:00:00 126 mm[Hg] [facility] Diastolic blood pressure 2021-12-12 18:00:00 87 mm[Hg] [facility] Heart rate 2021-12-12 18:00:00 86 /min [facility] Body temperature 2021-12-12 18:00:[address] [facility] Respiratory rate 2021-12-12 18:00:00 18 /min [facility] Body height 2021-12-12 18:00:00 154.9 cm [facility] Body weight 2021-12-12 18:00:00 57.153 kg [facility] BMI 2021-12-12 18:00:00 23.81 kg/m2 [facility] Systolic blood pressure 2023-01-14 16:32:00 138 mm[Hg] [facility] Diastolic blood pressure 2023-01-14 16:32:00 84 mm[Hg] [facility] Heart rate 2023-01-14 16:32:00 67 /min [facility] Body temperature 2023-01-14 16:32:[address] [facility] Respiratory rate 2023-01-14 16:32:00 16 /min [facility] Oxygen saturation in Arterial blood by Pulse oximetry 2023-01-14 16:32:00 99 /min [facility] Body height 2023-01-12 09:05:00 154.9 cm [facility] Body weight 2023-01-12 09:05:00 58.968 kg [facility] BMI 2023-01-12 09:05:00 24.56 kg/m2 [facility] Procedures Procedure Date / Time Performed Performing Clinician Source COMP. METABOLIC PANEL (43082) 2023-05-19 17:22:[address] [facility] CT ABDOMEN PELVIS W CONTRAST 2023-05-19 15:59:[address] [facility] LIPASE 2023-05-19 15:43:00 Tod Sellers Un [facility] CBC WITH DIFF 2023-05-19 15:43:00 Tod Sellers U [facility] URINALYSIS 2023-05-19 15:32:00 Tod Sellers [facility] POCT TEST 2023-05-19 15:31:[address] [facility] CONSENT/REFUSAL FOR DIAGNOSIS AND TREATMENT 2023-05-19 14:37:15 Doctor Unassigned, Basye [facility] PHOSPHORUS 2023-01-15 08:15:00 Benita Rockwell Un [facility] MAGNESIUM 2023-01-15 08:15:00 Benita Rockwell [facility] BASIC METABOLIC PANEL (NA, K, CL, CO2, GLUCOSE, BUN, CREATININE, CA) 2023-01-15 08:15:[address] [facility] CBC WITH DIFF 2023-01-15 08:15:00 Benita Rockwell U [facility] PROTHROMBIN TIME / INR 2023-01-15 08:15:[address] [facility] MAGNESIUM 2023-01-14 10:14:00 [facility] 2023-01-14 10:14:00 Benita Rockwell [facility] BASIC METABOLIC PANEL (NA, K, CL, CO2, GLUCOSE, BUN, CREATININE, CA) 2023-01-14 10:14:[address] [facility] CBC WITH DIFF 2023-01-14 10:14:00 Benita Rockwell U [facility] PHOSPHORUS 2023-01-14 10:14:00 Benita Rockwell Un [facility] MAGNESIUM 2023-01-14 10:14:00 Benita Rockwell [facility] BASIC METABOLIC PANEL (NA, K, CL, CO2, GLUCOSE, BUN, CREATININE, CA) 2023-01-14 10:14:[address] [facility] CBC WITH DIFF 2023-01-14 10:14:00 Benita Rockwell U [facility] CBC WITH DIFF 2023-01-13 10:45:00 Vaishnavi, [facility] BASIC METABOLIC PANEL (NA, K, CL, CO2, GLUCOSE, BUN, CREATININE, CA) 2023-01-13 10:45:00 Vaishnavi [facility] MAGNESIUM 2023-01-13 10:45:00 Vaishnavi, [facility] PHOSPHORUS 2023-01-13 10:45:00 Vaishnavi, [facility] HEPATIC FUNCTION PANEL ([id number]) (ALB,T.PRO,BILI T,BU/BC,ALT,AST,ALK PHOS) 2023-01-13 10:45:00 Vaishnavi, [facility] PHOSPHORUS 2023-01-13 10:45:00 Vaishnavi, [facility] MAGNESIUM 2023-01-13 10:45:00 Vaishnavi [facility] HEPATIC FUNCTION PANEL ([id number]) (ALB,T.PRO,BILI T,BU/BC,ALT,AST,ALK PHOS) 2023-01-13 10:45:00 Vaishnavi, [facility] BASIC METABOLIC PANEL (NA, K, CL, CO2, GLUCOSE, BUN, CREATININE, CA) 2023-01-13 10:45:00 Vaishnavi, [facility] CBC WITH DIFF 2023-01-13 10:45:[address] [facility] GLUCOSE BODY FLUID 2023-01-12 20:44:[address] [facility] BODY FLUID MANUAL DIFF 2023-01-12 20:44:00 VaishnaviClayton dailey [facility] T.PROTEIN BODY FLUID 2023-01-12 20:44:00 Vaishnavi [facility] ASPIRATE OR ABSCESS CULTURE(AEROBIC/ANAEROBIC ) 2023-01-12 20:44:00 Vaishnavi [facility] TOTAL BODY FLUID 2023-01-12 20:44:00 Vaishnavi [facility] GLUCOSE BODY FLUID 2023-01-12 20:44:00 VaishnaviRodolfo [facility] T.PROTEIN BODY FLUID 2023-01-12 20:44:00 Vaishnavi [facility] BODY FLUID DIRECT COUNT 2023-01-12 20:44:00 VaishnaviKaycee dailey [facility] ASPIRATE OR ABSCESS CULTURE(AEROBIC/ANAEROBIC ) 2023-01-12 20:44:00 Vaishnavi [facility] TOTAL BODY FLUID 2023-01-12 20:44:00 Vaishnavi [facility] PROTHROMBIN TIME / INR 2023-01-12 08:13:00 VaishnaviClayton dailey [facility] PROTHROMBIN TIME / INR 2023-01-12 08:13:00 VaishnaviClayton dailey [facility] COMP. METABOLIC PANEL ([id number]) 2023-01-12 03:49:[address] [facility] COMP. METABOLIC PANEL ([id number]) 2023-01-12 03:49:00 Ricky, Ciera [facility] CT ABDOMEN PELVIS W CONTRAST 2023-01-12 03:32:06 Ricky [facility] CT ABDOMEN PELVIS W CONTRAST 2023-01-12 03:32:06 Ciera García [facility] POCT TEST 2023-01-12 03:02:00 Jessica García [facility] POCT TEST 2023-01-12 03:02:00 Jessica García [facility] URINALYSIS 2023-01-12 02:56:00 [facility]-12 02:56:00 Kenneth García [facility] TOTAL BETA HCG ASSAY 2023-01-12 02:56:00 Ciera García [facility] CBC WITH DIFF 2023-01-12 02:56:00 Kenneth García [facility] EXTRA TUBE ORANGE 2023-01-12 02:56:00 Aroldo Siddiqui [facility] EXTRA TUBE LAV 2023-01-12 02:56:00 Aroldo Siddiqui [facility] LIPASE 2023-01-12 02:56:00 [facility] BET[facility] HCG ASSAY 2023-01-12 02:56:[address] [facility] WITH DIFF 2023-01-12 02:56:00 [facility] 2023-01-12 02:56:00 Kenneth García [facility] EXTRA TUBE LAV 2023-01-12 02:56:00 Aroldo Siddiqui [facility] EXTRA TUBE ORANGE 2023-01-12 02:56:00 Aroldo Siddiqui [facility] CONSENT/REFUSAL FOR DIAGNOSIS AND TREATMENT 2023-01-12 01:46:10 Doctor Unassigned, Basye [facility] CONSENT/REFUSAL FOR DIAGNOSIS AND TREATMENT 2023-01-12 01:46:10 Doctor Unassigned, Basye [facility] ASSIGNMENT OF BENEFITS 2022-11-21 19:49:02 Docto r Unassigned, Basye [facility] ASSIGNMENT OF BENEFITS 2022-11-21 19:49:02 Docto r Unassigned, Basye [facility] CONSENT/REFUSAL FOR DIAGNOSIS AND TREATMENT 2022-11-21 18:03:25 Doctor Unassigned, Basye [facility] CONSENT/REFUSAL FOR DIAGNOSIS AND TREATMENT 2022-11-21 18:03:25 Doctor Unassigned, Basye [facility] EMERGENCY SERVICES AGREEMENTS AND AUTHORIZATIONS 2022-11-21 05:01:00 Doctor Unassigned, Basye [facility] CONSENT/REFUSAL FOR DIAGNOSIS AND TREATMENT 2022-09-05 13:42:02 Doctor Unassigned, Basye [facility] LIPASE 2022-07-31 23:13:00 [facility] 2022-07-31 23:13:[address] [facility] COMP. METABOLIC PANEL ([id number]) 2022-07-31 23:13:[address] [facility] CBC WITH DIFF 2022-07-31 23:13:00 [facility] CONSENT/REFUSAL FOR DIAGNOSIS AND TREATMENT 2022-07-31 22:49:17 Doctor Unassigned, Basye [facility] XR ANKLE 3+ VW RIGHT 2022-07-15 16:00:[address] [facility] XR FOOT 3+ VW RIGHT 2022-07-15 16:00:[address] [facility] XR FOOT 3+ VW RIGHT 2022-07-15 16:00:00 Jenifer Kaur [facility] PATIENT FINANCIAL POLICY 2022-07-15 15:25:53 Doctor Unassigned, Basye [facility] POCT MOLECULAR STREP 2022-06-23 16:06:00 Unknown, Attignacio alexander [facility] ASSIGNMENT OF BENEFITS 2022-06-23 15:18:28 Docto r Unassigned, Basye [facility] COMP. METABOLIC PANEL ([id number]) 2022-05-05 19:14:00 [facility] 2022-05-05 19:14:00 Karon Norton [facility] POCT TEST 2022-05-05 19:00:[address] [facility] URINALYSIS 2022-05-05 18:58:00 Karon Norton [facility] CT ABDOMEN PELVIS WO CONTRAST 2022-04-26 15:11:[address] [facility] COMP. METABOLIC PANEL ([id number]) 2022-04-26 14:49:[address] [facility] CBC WITH DIFF 2022-04-26 14:49:00 Zion Bridges [facility] URINALYSIS 2022-04-26 14:49:00 [facility] POCT TEST 2022-04-26 14:45:[address] [facility] CONSENT/REFUSAL FOR DIAGNOSIS AND TREATMENT 2022-04-26 14:22:29 Doctor Unassigned, Basye [facility] POCT TEST 2022-04-26 01:22:[address] [facility] ASSIGNMENT OF BENEFITS 2022-04-26 00:54:02 Docto r Unassigned, Basye [facility] URINALYSIS 2022-04-26 00:45:00 Zion Bridges [facility] CONSENT/REFUSAL FOR DIAGNOSIS AND TREATMENT 2022-04-26 00:16:47 Doctor Unassigned, Basye [facility] BASIC METABOLIC PANEL (NA, K, CL, CO2, GLUCOSE, BUN, CREATININE, CA) 2022-04-07 22:35:[address] [facility] CBC WITH DIFF 2022-04-07 22:35:00 Olamide Garvin [facility] URINALYSIS 2022-04-07 21:36:00 Olamide Garvin [facility] URINE DRUG (IMMUNOASSAY) - COMPREHENSIVE DRUG SCREEN W/O REFLEX 2022-04-07 21:36:[address] [facility] CONSENT/REFUSAL FOR DIAGNOSIS AND TREATMENT 2022-04-07 19:29:15 Doctor Unassigned, Basye [facility] POCT TEST 2022-03-24 14:07:[address] [facility] CONSENT/REFUSAL FOR DIAGNOSIS AND TREATMENT 2022-03-24 13:27:20 Doctor Unassigned, Basye [facility] CT ABDOMEN PELVIS WO CONTRAST 2022-03-15 14:09:[address] [facility] URINALYSIS 2022-03-15 13:53:00 [facility] 2022-03-15 13:52:[address] [facility] CONSENT/REFUSAL FOR DIAGNOSIS AND TREATMENT 2022-03-15 13:37:02 Doctor Unassigned, Basye [facility] POCT TEST 2022-03-11 14:59:[address] [facility] FLU VACC ([id number]), 6 MO-64 YRS, .5ML, IM, QUAD (FLUCELVAX) 2022-02-27 13:34:[address] [facility] NOTICE OF PRIVACY PRACTICES 2022-02-21 06:06:30 Doctor Unassigned, Basye [facility] CONSENT/REFUSAL FOR DIAGNOSIS AND TREATMENT 2022-02-21 06:03:41 Doctor Unassigned, Basye [facility] XR ANKLE <3 VW RIGHT 2022 17:56:[address] [facility] CT ABDOMEN PELVIS W CONTRAST 2022 17:44:[address] [facility] CT TRAUMA CERVICAL SPINE WO CONTRAST 2022 17:43:[address] [facility] POCT TEST 2022 17:27:[address] [facility] COMP. METABOLIC PANEL ([id number]) 2022 17:17:[address] [facility] CBC WITH DIFF 2022 17:17:00 [facility]REFUSAL FOR DIAGNOSIS AND TREATMENT 2022 16:53:13 Doctor Unassigned, Basye [facility] US GALL BLADDER 2022-01-18 12:31:09 Bernardo Levy [facility] US PELVIS COMPLETE WITH TRANSVAGINAL 2022-01-18 12:21:[address] [facility] CT ABDOMEN PELVIS W CONTRAST 2022-01-18 11:20:[address] [facility] POCT TEST 2022-01-18 10:57:[address] [facility] COVID-19 (ID NOW RAPID TESTING) 2022-01-18 10:57:[address] [facility] URINALYSIS 2022-01-18 10:47:00 Jayy Kennedy [facility] LIPASE 2022-01-18 10:29:00 Jayy Kennedy [facility] TEST, SERUM 2022-01-18 10:29:[address] [facility] HEPATIC FUNCTION PANEL ([id number]) (ALB,T.PRO,BILI T,BU/BC,ALT,AST,ALK PHOS) 2022-01-18 10:29:[address] [facility] BASIC METABOLIC PANEL (NA, K, CL, CO2, GLUCOSE, BUN, CREATININE, CA) 2022-01-18 10:29:[address] [facility] CBC WITH DIFF 2022-01-18 10:29:00 Jayy Kennedy [facility] CONSENT/REFUSAL FOR DIAGNOSIS AND TREATMENT 2022-01-18 10:13:31 Doctor Unassigned, Basye [facility] CT HEAD WO CONTRAST 2022-01-15 15:22:[address] [facility] TEST, SERUM 2022-01-15 14:36:[address] [facility] BASIC METABOLIC PANEL (NA, K, CL, CO2, GLUCOSE, BUN, CREATININE, CA) 2022-01-15 14:36:[address] [facility] CBC WITH DIFF 2022-01-15 14:36:00 [facility] FOR [facility]AGNOSIS AND TREATMENT 2022-01-15 13:28:12 Doctor Unassigned, Basye [facility] XR CERVICAL SPINE 4 VW 2022-01-09 00:29:16 [facility] 4 [facility]W 2022-01-09 00:29:16 Gabriela, And paul [facility] XR SPINE THORACIC 3 VW 2022-01-09 00:29:16 [facility] 2022-01-08 23:50:00 Humberto Ochoa [facility] CONSENT/REFUSAL FOR DIAGNOSIS AND TREATMENT 2022-01-08 22:51:08 Doctor Unassigned, Basye [facility] GALV ONLY - VAGINAL PATHOGENS BY NUCLEIC ACID TESTING 2021-12-12 18:37:[address] [facility] URINE CULTURE 2021-12-12 18:32:00 Prasanna Vargas [facility] POCT TEST 2021-12-12 18:31:[address] [facility] POCT URINALYSIS W/O SPECIFIC GRAVITY 2021-12-12 18:31:00 Prasanna Vargas [facility] Encounters Start Date/Time End Date/Time Encounter Type Admission Type Attending [facility] Care Facility Care Department Encounter ID Source 2021-03-14 03:14:31 Emergency [facility] [id number] [facility] 2021-03-13 20:05:20 Emergency [facility] [id number] [facility] 2021-03-13 12:48:28 Emergency [facility] [id number] [facility] 2021-03-13 02:43:51 Emergency [facility] [id number] [facility] 2021-03-13 00:27:09 Emergency [facility] [id number] [facility] 2021-03-12 22:10:36 Emergency [facility] [id number] [facility] 2021-03-12 20:04:05 Emergency [facility] [id number] [facility] 2021-03-12 15[facility]25:05 [place] [facility] [place] [id number] 2021-03-12 11:43:36 Emergency [facility] [id number] [facility] 2021-03-12 07:41:37 Emergency [facility] [id number] [facility] 2021-03-12 05:43:47 Emergency [facility] [id number] [facility] 2021-03-12 03:43:41 Emergency [facility] [id number] [facility] 2021-03-12 01:31:27 Emergency [facility] [id number] [facility] 2021-03-12 00:56:44 Emergency X [facility] [id number] [facility] 2021-03-12 00:56:31 Emergency [facility] [id number] [facility] 2021-03-11 17:47:02 Emergency [facility] [id number] [facility] 2021-03-11 16:27:15 Emergency [facility] [id number] [facility] 2021-03-11 12:00:58 Emergency [facility] [id number] [facility] 2021-03-11 10:33:59 Emergency [facility] [place] [id number] [facility] 2021-03-11 01:36:52 Emergency [facility] [id number] [facility] 2021-03-10 23:35:34 Emergency [facility] [id number] [facility] 2021-03-10 19:06:16 Emergency [facility] [id number] [facility] 2021-03-10 12:39:47 Emergency [facility] [id number] [facility] 2021-03-10 06:54:04 Emergency [facility] [id number] [facility] 2021-03-09 13:25:44 Outpatient P [facility] [id number] [facility] 2021-03-09 13:08:01 Outpatient P [facility] [id number] [facility] 2021-03-09 12:37:25 Outpatient P [facility] [id number] [facility] 2021-03-09 11:51:20 Outpatient P [facility] [id number] [facility] 2023-05-19 09:04:00 2023-05-19 12:20:00 Emergency X TOD SELLERS [facility] ERT [id number] [facility] 2023-05-19 09:04:00 2023-05-19 12:20:00 Emergency AdeAnna Marie dohertyzohra [facility] [id number] [facility] 2023-04-05 00:00:00 2023-04-05 00:00:00 Patient Secure Msg Prasanna Vargas [facility] 1..840.114 350.1.13.10 4.2.7.2.686 [id number] [facility] 2023-02-14 12:59:23 2023-02-14 12:59:23 Outpatient [facility] [id number] Willis F Jeffery 2023-02-06 18:19:02 2023-02-06 18:19:02 Outpatient [facility] [id number] Willis Miguel Jeffery 2023-01-30 00:00:00 2023-01-30 00:00:00 Outpatient BILL_Farzana [facility] [id number] Odilia [facility] 2023-01-16 00:00:00 2023-01-16 00:00:00 Transition of Care Marlys Odell 1..840.114 350.1.13.10 4.2.7.2.686 [id number] [facility] 2023-01-11 21:06:00 2023-01-15 16:00:00 Inpatient X JOSE, OLIVER [facility] DAVID [id number] [facility] 2023-01-11 21:06:00 2023-01-15 16:00:00 Hospital Encounter Aroldo Siddiqui, Mirella Steele, [facility] 1.2.840.114 350.1.13.10 4.2.7.2.686 [id number] [id number] [facility] 2023-01-12 00:00:00 2023-01-12 00:00:00 Travel 1.2.840.1 26155.1.1 3.104.2.7 .3.869710 .8 1.2.840.114 350.1.13.10 4.2.7.3.698 084.8 [id number] [facility] 2023-01-11 00:00:00 2023-01-11 00:00:00 Travel 1.2.840.1 84170.1.1 3.104.2.7 .3.609192 .8 1.2.840.114 350.1.13.10 4.2.7.3.698 084.8 [id number] [facility] 2022-12-28 00:00:00 2022-12-28 00:00:00 Outpatient ERICKSON_R [facility] [id number] [facility] 2022-12-14 18:37:13 2022-12-14 18:37:13 Outpatient STEFANY [facility] [id number] Willis Gil 2022-12-13 00:00:00 2022-12-13 00:00:00 Outpatient ERICKSON_R [facility] [id number] [facility] 2022-12-12 09:30:00 2022-12-12 09:30:00 Outpatient PRASANNA LOOMIS [facility] [id number] [facility] 2022-11-21 13:08:00 2022-11-21 16:45:00 Emergency X MANJU NEWELL [facility] ERT [id number] [facility] 2022-11-21 13:08:00 2022-11-21 16:45:00 Emergency Zion Bridges Christopher 1.2.840.1 39917.1.1 3.104.2.7 .3.151663 .8 [id number] [facility] 2022-11-21 00:00:00 2022-11-21 00:00:00 Travel 1.2.840.1 39516.1.1 3.104.2.7 .3.708585 .8 1.2.840.114 350.1.13.10 4.2.7.3.698 084.8 [id number] [facility] 2022-11-18 10:08:00 2022-11-18 10:08:00 Outpatient [facility] [id number] Williszaira Gil 2022-11-15 09:40:00 2022-11-15 09:40:00 Outpatient LIAN LABOY CHRISTINE [facility] [id number] [facility] 2022-11-15 00:00:00 2022-11-15 00:00:00 Orders Only Palak Marrufo 1.2.840.1 72151.1.1 3.104.2.7 .3.791550 .8 [id number] [facility] 2022-11-09 15:26:18 2022-11-09 15:26:18 Outpatient [facility] [id number] Williszaira Gil 2022-11-06 13:00:00 2022-11-06 13:00:00 Outpatient VIJAY ARAUZ [facility] [id number] [facility] 2022-10-29 00:00:00 2022-10-29 00:00:00 Patient Secure Lian Mason 1.2.840.1 20385.1.1 3.104.2.7 .3.655580 .8 [id number] [facility] 2022-10-29 00:00:00 2022-10-29 00:00:00 Patient Secure Prasanna Kang 1.2.840.1 04944.1.1 3.104.2.7 .3.969281 .8 [id number] [facility] 2022-10-03 00:00:00 2022-10-03 00:00:00 Letter (Out) Gurjit Lim [facility] MEDICAL OFFICE BUILDING 1.2.840.114 350.1.13.10 4.2.7.2.686 [id number] [facility] 2022-10-02 10:00:00 2022-10-02 10:00:00 Outpatient CELINA SALMON [facility] [id number] [facility] 2022-10-01 09:40:00 2022-10-01 09:40:00 Outpatient R REJI DÍAZ [facility] [id number] [facility] 2022-09-25 00:00:00 2022-09-25 00:00:00 Telephone Rad Serra [facility] BUILDING 1.2.840.114 350.1.13.10 4.2.7.2.686 [id number] [facility] 2022-09-21 09:30:00 2022-09-21 09:30:00 Outpatient KASSANDRA MCKINLEY [facility] [id number] [facility] 2022-09-21 00:00:00 2022-09-21 00:00:00 Telephone Kassandra Pugh [facility] TOÑO?[facility] 1.2.840.114 350.1.13.10 4.2.7.2.686 [id number] [id number] [facility] 2022-09-21 00:00:00 2022-09-21 00:00:00 Letter (Out[facility] 1.84.114 350.1.13.10 4.2.7.2.686 [id number] [facility] 2022-09-21 00:00:00 2022-09-21 00:00:00 [facility] 1.2840.114 350.1.13.10 4.2.7.2.686 [id number] 092 [id number] [facility] 2022-09-14 09:30:00 2022-09-14 09:30:00 Outpatient R [facility]II[facility] [id number] [facility] 2022-09-12 00:00:00 2022-09-12 00:00:00 Telephone Cristian [facility] 1.84.114 350.1.13.10 4.2.7.2.686 [id number] [id number] [facility] 2022-09-07 11:30:00 2022-09-07 11:30:00 Outpatient R KASSANDRA PUGH [facility] [id number] [facility] 2022-09-05 08:44:00 2022-09-05 13:15:00 Emergency X KENNEDY WHITLEY [facility] ERT [id number] [facility] 2022-09-05 08:44:00 2022-09-05 13:15:00 Emergency Kennedy Whitley [facility] 1.84.114 350.1.13.10 4.2.7.2.686 [id number] [id number] [facility] 2022-09-04 00:00:00 2022-09-04 00:00:00 Telephone Cristian [facility] TOÑO?[facility] 1.284.114 350.1.13.10 4.2.7.2.686 [id number] [id number] [facility] 2022-09-04 00:00:00 2022-09-04 00:00:00 Patient Secure Msg Serra, Rad Cuello [facility] PROFESSIO NAL BUILDING 1..840.114 350.1.13.10 4.2.7.2.686 [id number] [facility] 2022-08-29 09:00:00 2022-08-29 09:00:00 Outpatient R CELINA FINNEY [facility] [id number] [facility] 2022-08-14 00:00:00 2022-08-14 00:00:00 Patient Secure Msg Doctor Unassigned, Basye [facility] MEDICAL OFFICE BUILDING 1.840.114 350..13.10 4.2.7.2.686 [id number] [facility] 2022-07-31 17:56:00 2022-07-31 20:30:00 Emergency X [facility] ERT [id number] [facility] 2022-07-31 17:56:00 2022-07-31 20:30:00 [facility] 1.840.114 350..13.10 4.2.7.2.686 [id number] [facility] 2022-07-15 09:46:45 2022-07-15 23:59:00 Outpatient R CARI KAUR [facility] [id number] [facility] 2022-07-15 09:46:45 2022-07-15 23:59:00 Hospital Encounter Cari Kaur [facility] MEDICAL OFFICE BUILDING 1.840.114 350.1.13.10 4.2.7.2.686 [id number] [facility] 2022-07-15 09:46:45 2022-07-15 23:59:00 Hospital Encounter Cari Kaur [facility] MEDICAL OFFICE BUILDING 1..840.114 350.1.13.10 4.2.7.2.686 [id number] [facility] 2022-07-15 09:20:00 2022-07-15 10:29:17 Urgent Care Cari Kaur Unknown, Attending [facility] MEDICAL OFFICE BUILDING 1.840.114 350.1.13.10 4.2.7.2.686 [id number] [facility] 2022-07-15 00:00:00 2022-07-15 00:00:00 Orders Only Doctor Unassigned, Basye [facility] 1.840.114 350.1.13.10 4.2.7.2.686 [id number] [facility] 2022-06-23 09:20:00 2022-06-23 10:27:39 Outpatient R PAUL SAMAYOA [facility] [id number] [facility] 2022-06-23 09:20:00 2022-06-23 10:27:39 Urgent Care Paul Samayoa Unknown, Attending [facility] MEDICAL OFFICE BUILDING 1.840.114 350.1.13.10 4.2.7.2.686 [id number] [facility] 2022-06-23 00:00:00 2022-06-23 00:00:00 Orders Only Doctor Unassigned, Basye [facility] 1.840.114 350.1.13.10 4.2.7.2.686 [id number] [facility] 2022-06-15 09:40:00 2022-06-15 09:40:00 Outpatient R ISIDROLIAN Dowling [facility] [id number] [facility] 2022-05-29 08:00:00 2022-05-29 08:00:00 Outpatient Farzana KASSANDRA PUGH [facility] [id number] [facility] 2022-05-15 09:20:00 2022-05-15 09:20:00 Outpatient R BENNETT MILLER [facility] [id number] [facility] 2022-05-11 09:30:00 2022-05-11 09:30:00 Outpatient Farzana PUGHKASSANDRA [facility] [id number] [facility] 2022-05-05 12:26:00 2022-05-05 16:11:00 Emergency X NORTON KARON [facility] ERT [id number] [facility] 2022-05-05 12:26:00 2022-05-05 16:11:00 Emergency Errol Karon [facility] 1.2.840.114 350.1.13.10 4.2.7.2.686 [id number] [facility] 2022-05-01 00:00:00 2022-05-01 00:00:00 Outpatient Farzana VARGAS PRASANNA [facility] [id number] [facility] 2022-04-26 08:30:00 2022-04-26 09:59:00 Emergency X ZION BRIDGES [facility] ERT [id number] [facility] 2022-04-26 08:30:00 2022-04-26 09:59:00 Emergency Zion Bridges [facility] 1.2.840.114 350.1.13.10 4.2.7.2.686 [id number] [facility] 2022-04-25 18:23:00 2022-04-25 21:55:00 Emergency X KENNEDY WHITLEY [facility] ERT [id number] [facility] 2022-04-25 18:23:00 2022-04-25 21:55:00 Emergency Kennedy Whitley [facility] 1.2.840.114 350.1.13.10 4.2.7.2.686 [id number] [facility] 2022-04-19 10:00:00 2022-04-19 10:00:00 Outpatient LIAN LABOY [facility] [id number] [facility] 2022-04-12 00:00:00 2022-04-12 00:00:00 [facility] MEDICAL OFFICE BUILDING 1.2.840.114 350.1.13.10 4.2.7.2.686 [id number] [facility] 2022-04-11 00:00:00 2022-04-11 00:00:00 Telephone Darrion Wyatt [facility] TOÑO?[facility] MEDICAL OFFICE BUILDING 1.2.840.114 350.1.13.10 4.2.7.2.686 [id number] [id number] [facility] 2022-04-10 00:00:00 2022-04-10 00:00:00 Telephone Anastasiia Pughssica [facility] TOÑO?[facility] MEDICAL OFFICE BUILDING 1.2.840.114 350.1.13.10 4.2.7.2.686 [id number] [id number] [facility] 2022-04-09 09:30:00 2022-04-09 09:30:00 [facility] MEDICAL OFFICE BUILDING 1.2.840.114 350.1.13.10 4.2.7.2.686 [id number] [facility] 2022-04-09 09:30:00 2022-04-09 09:21:44 Outpatient ANASTASIIA MCKINLEYSSICA [facility] [id number] [facility] 2022-04-07 13:41:00 2022-04-07 17:49:00 Emergency X ALEXISRU OLAMIDE [facility] ERT [id number] [facility] 2022-04-07 13:41:00 2022-04-07 17:49:00 Emergency Olamide Garvin [facility] 1.2.840.114 350.1.13.10 4.2.7.2.686 [id number] [facility] 2022-04-07 00:00:00 2022-04-07 00:00:00 Patient Secure Msg Doctor Unassigned, Basye [facility] 1..840.114 350.1.13.10 4.2.7.2.686 [id number] [facility] 2022-04-04 00:00:00 2022-04-04 00:00:00 Telephone Kassandra Pugh [facility] MEDICAL OFFICE BUILDING 1..840.114 350.1.13.10 4.2.7.2.686 [id number] [id number] [facility] 2022-04-02 10:30:00 2022-04-02 10:30:00 Outpatient R KASSANDRA PUGH [facility] [id number] [facility] 2022-03-28 00:00:00 2022-03-28 00:00:00 Patient Secure Msg Doctor Unassigned, Basye [facility] MEDICAL OFFICE BUILDING 1..840.114 350.1.13.10 4.2.7.2.686 [id number] [facility] 2022-03-24 07:35:00 2022-03-24 13:11:00 Emergency X KELLIE DUNCAN [facility] ERT [id number] [facility] 2022-03-24 07:35:00 2022-03-24 13:11:00 Emergency Kellie Duncan [facility] 1.2.840.114 350.1.13.10 4.2.7.2.686 [id number] [facility] 2022-03-23 10:30:00 2022-03-23 10:30:00 Outpatient KASSANDRA MCKINLEY [facility] [id number] [facility] 2022-03-23 00:00:00 2022-03-23 00:00:00 Telephone Darrion Wyatt [facility] TOÑO?[facility] MEDICAL OFFICE BUILDING 1.2.840.114 350.1.13.10 4.2.7.2.686 [id number] [facility] 2022-03-22 00:00:00 2022-03-22 00:00:00 Telephone Darrion Wyatt [facility] TOÑO?[facility] MEDICAL OFFICE BUILDING 1.2.840.114 350.1.13.10 4.2.7.2.686 [id number] [facility] 2022-03-22 00:00:00 2022-03-22 00:00:00 Refill Darrion Wyatt [facility] TOÑO?[facility] MEDICAL OFFICE BUILDING 1.2.840.114 350.1.13.10 4.2.7.2.686 [id number] [id number] [facility] 2022-03-21 00:00:00 2022-03-21 00:00:00 Telephone Darrion Wyatt [facility] TOÑO?[facility] MEDICAL OFFICE BUILDING 1.2.840.114 350.1.13.10 4.2.7.2.686 [id number] [id number] [facility] 2022-03-15 14:00:00 2022-03-15 14:36:19 Outpatient R REJI DÍAZ [facility] [id number] [facility] 2022-03-15 14:00:00 2022-03-15 14:36:19 Office Visit Reji Díaz [facility] PROFESSIO NAL BUILDING 1..840.114 350.1.13.10 4.2.7.2.686 [id number] [facility] 2022-03-15 08:40:00 2022-03-15 10:47:00 Emergency X ANNA GOULD [facility] ERT [id number] [facility] 2022-03-15 08:40:00 2022-03-15 10:47:00 Emergency Anna Gould [facility] 1..840.114 350.1.13.10 4.2.7.2.686 [id number] [facility] 2022-03-14 10:30:00 2022-03-14 10:30:00 Outpatient PRASANNA LOOMIS [facility] [id number] [facility] 2022-03-11 09:22:00 2022-03-11 12:15:00 Emergency X ANGELICA VIVEROS [facility] ERT [id number] [facility] 2022-03-11 09:22:00 2022-03-11 12:15:00 Emergency Angelica Viveros [facility] 1.2.840.114 350.1.13.10 4.2.7.2.686 [id number] [facility] 2022-03-06 08:30:00 2022-03-06 08:30:00 Outpatient KASSANDRA MCKINLEY [facility] [id number] [facility] 2022-03-02 00:00:00 2022-03-02 00:00:00 Telephone [facility]ion [facility] 1.2.840.114 350.1.13.10 4.2.7.2.686 [id number] 092 [id number] [facility] 2022-02-28 00:00:00 2022-02-28 00:00:00 Patient Secure Msg Doctor Unassigned, Basye [facility] TOÑO?[facility] 1..840.114 350.1.13.10 4.2.7.2.686 [id number] [id number] [facility] 2022-02-27 09:30:00 2022-02-27 09:49:42 Outpatient R KASSANDRA PUGH [facility] [id number] [facility] 2022-02-27 09:30:00 2022-02-27 09:49:42 [facility] 1.840.114 350.1.13.10 4.2.7.2.686 [id number] [id number] [facility] 2022-02-27 08:00:00 2022-02-27 09:12:17 Office Visit [facility]ijay [facility] MEDICAL OFFICE BUILDING 1.840.114 350.1.13.10 4.2.7.2.686 [id number] [facility] 2022-02-26 11:30:00 2022-02-26 11:30:00 Outpatient R KASSANDRA PUGH [facility] [id number] [facility] 2022-02-21 01:20:00 2022-02-21 03:44:00 Emergency X MAGGIE HAMILTON [facility] ERT [id number] [facility] 2022-02-21 01:20:00 2022-02-21 03:44:00 Emergency Maggie Hamilton [facility] 1.840.114 350.1.13.10 4.2.7.2.686 [id number] [facility] 2022-02-19 00:00:00 2022-02-19 00:00:00 Patient Secure Msg ZamudioKendal [facility] MEDICAL OFFICE BUILDING 1.840.114 350.1.13.10 4.2.7.2.686 [id number] [facility] 2022-02-19 00:00:00 2022-02-19 00:00:00 Patient Secure Msg Kendal Zamudio [facility] BUILDING 1.2840.114 350.1.13.10 4.2.7.2.686 [id number] [facility] 2022-02-19 00:00:00 2022-02-19 00:00:00 Patient Secure Msg Ade Bradford [facility] 1.2840.114 350.1.13.10 4.2.7.2.686 [id number] [facility] 2022-02-19 00:00:00 2022-02-19 00:00:00 Patient Secure Msg SalazarRoss Farzana [facility] 1.2840.114 350.1.13.10 4.2.7.2.686 [id number] [facility] 2022 11:58:00 2022 15:13:00 Emergency MAGGIE MONTANEZ [facility] ERT [id number] [facility] 2022 11:58:00 2022 15:13:00 Emergency Maggie Hamilton [facility] 1.84.114 350.1.13.10 4.2.7.2.686 [id number] [id number] [facility] 2022-02-09 09:00:00 2022-02-09 09:00:00 Outpatient CRICKET FRYE [facility] [id number] [facility] 2022-02-06 10:00:00 2022-02-06 10:00:00 Outpatient VIJAY ARAUZ [facility] [id number] [facility] 2022-02-05 09:45:00 2022-02-05 10:05:00 Nurse Visit Nurse, Filippo [facility] Ileana Medrano [facility] 1.840.114 350.1.13.10 4.2.7.2.686 [id number] [facility] 2022-02-05 09:20:00 2022-02-05 09:20:00 Outpatient FLACO KEE [facility] [id number] [facility] 2022-01-26 00:00:00 2022-01-26 00:00:00 Case Management Prasanna Vargas [facility] PROFESSIO NAL BUILDING 1.840.114 350.1.13.10 4.2.7.2.686 [id number] [facility] 2022-01-22 11:00:00 2022-01-22 11:00:00 Outpatient VIJAY ARAUZ [facility] [id number] [facility] 2022-01-19 00:00:00 2022-01-19 00:00:00 Patient Secure Msg Doctor Unassigned, Basye [facility] 1.840.114 350.1.13.10 4.2.7.2.686 [id number] [facility] 2022-01-18 05:17:00 2022-01-18 10:25:00 Emergency X BERNARDO LEVY [facility] ERT [id number] [facility] 2022-01-18 05:17:00 2022-01-18 10:25:00 Emergency Jayy [facility] 1.0.114 350.1.13.10 4.2.7.2.686 [id number] [facility] 2022-01-15 08:34:00 2022-01-15 10:49:00 Emergency X MAURA SAMAYOA [facility] ERT [id number] [facility] 2022-01-15 08:34:00 2022-01-15 10:49:00 Emergency Ana Larry Maura Romero [facility] 1..840.114 350.1.13.10 4.2.7.2.686 [id number] [facility] 2022-01-08 18:04:00 2022-01-08 20:09:00 Emergency X HUMBERTO OCHOA [facility] ERT [id number] [facility] 2022-01-08 18:04:00 2022-01-08 20:09:00 Emergency Humberto Ochoa [facility] 1..840.114 350.1.13.10 4.2.7.2.686 [id number] [facility] 2021-12-12 13:30:00 2021-12-12 13:40:21 Outpatient Farzana CARNES [facility] [id number] [facility] 2021-12-12 13:30:00 2021-12-12 13:40:21 Office Visit Prasanna Vargas [facility] 1..840.114 350.1.13.10 4.2.7.2.686 [id number] [facility] 2021-12-12 13:30:00 2021-12-12 13:40:21 Outpatient Farzana CARNES [facility] [id number] [facility] 2021-12-12 13:30:00 2021-12-12 13:40:21 Outpatient Farzana CARNES [facility] [id number] [facility] 2021-12-11 16:15:00 2021-12-11 16:15:00 Outpatient ADE KING [facility] [id number] [facility] 2021-12-05 14:15:00 2021-12-05 14:15:00 Outpatient R LYSSA ROMULO [facility] [id number] [facility] 2021-11-28 08:49:00 2021-11-28 11:02:00 Emergency X KARON NORTON [facility] ERT [id number] [facility] 2021-11-28 08:49:00 2021-11-28 11:02:00 Emergency Karon Norton [facility] 1.0.114 350.1.13.10 4.2.7.2.686 [id number] [facility] 2021-11-28 00:00:00 2021-11-28 00:00:00 Patient Secure Msg Cricket Taylor [facility] RECREATION [facility] MATERNAL & CHILD [facility] 1..114 350.1.13.10 4.2.7.2.686 [id number] [facility] 2021-11-24 18:14:00 2021-11-24 21:04:00 Emergency X Kaycee MÉNDEZ [facility] ERT [id number] [facility] 2021-11-24 18:14:00 2021-11-24 21:04:00 Emergency Kaycee Méndez [facility] 1..114 350.1.13.10 4.2.7.2.686 [id number] [facility] 2021-11-24 00:00:00 2021-11-24 00:00:00 Telephone Cricket Taylor [facility] RECREATION [facility]ER [facility] CHILD [facility] 1..114 350.1.13.10 4.2.7.2.686 [id number] [facility] 2021-11-20 00:00:00 2021-11-20 00:00:00 Patient Secure Msg Kendal Zamudio [facility] 1.2.840.114 350.1.13.10 4.2.7.2.686 [id number] [facility] 2021-11-19 00:00:00 2021-11-19 00:00:00 Letter (Out) Leslie Santacruz [facility] 1.2.840.114 350.1.13.10 4.2.7.2.686 [id number] [facility] 2021-11-18 10:41:40 2021-11-18 23:59:00 Outpatient R OLIVER [facility] [id number] [facility] 2021-11-18 10:41:40 2021-11-18 23:59:00 Hospital Encounter Oliver [facility] 1.2.840.114 350.1.13.10 4.2.7.2.686 [id number] [facility] 2021-11-18 10:20:00 2021-11-18 10:53:20 Urgent Care Oliver, [facility] 1.2.840.114 350.1.13.10 4.2.7.2.686 [id number] [facility] 2021-11-09 10:30:00 2021-11-09 10:30:00 Outpatient R CELINA [facility] [id number] [facility] 2021-10-25 13:20:00 2021-10-25 13:20:00 [facility]gent Care [facility] MEDICAL OFFICE BUILDING 1.2.840.114 350.1.13.10 4.2.7.2.686 [id number] [facility] 2021-10-25 13:20:00 2021-10-25 12:47:59 Outpatient R ILEANA MEDRANO [facility] [id number] [facility] 2021-10-25 00:00:00 2021-10-25 00:00:00 Patient Secure Msg Vijay Martinez [facility] TOÑO?[facility] MEDICAL OFFICE BUILDING 1.2.840.114 350.1.13.10 4.2.7.2.686 [id number] [facility] 2021-10-25 00:00:00 2021-10-25 00:00:00 Telephone [facility] MEDICAL OFFICE BUILDING 1.2.840.114 350.1.13.10 4.2.7.2.686 [id number] [facility] 2021-10-25 00:00:00 2021-10-25 00:00:00 Telephone Provider, Filippo [facility] TOÑO?[facility] MEDICAL OFFICE BUILDING 1.2.840.114 350.1.13.10 4.2.7.2.686 [id number] [facility] 2021-10-25 00:00:00 2021-10-25 00:00:00 Telephone Nurse, Filippo [facility] TOÑO?[facility] MEDICAL OFFICE BUILDING 1.2.840.114 350.1.13.10 4.2.7.2.686 [id number] [facility] 2021-10-24 10:15:00 2021-10-24 10:15:00 Outpatient ROMULO BROWNING [facility] [id number] [facility] 2021-10-24 10:15:00 2021-10-24 10:15:00 Outpatient ROMULO BROWNING [facility] [id number] [facility] 2021-10-11 09:30:00 2021-10-11 09:30:00 Outpatient ROMULO BROWNING [facility] [id number] [facility] 2021-10-10 13:30:00 2021-10-10 13:30:00 Outpatient PRASANNA LOOMIS [facility] [id number] [facility] 2021-10-10 13:30:00 2021-10-10 13:30:00 Outpatient R PRASANNA VARGAS [facility] [id number] [facility] 2021-10-10 13:30:00 2021-10-10 13:30:00 Outpatient R PRASANNA VARGAS [facility] [id number] [facility] 2021-10-10 13:30:00 2021-10-10 13:30:00 Outpatient R PRASANNA VARGAS [facility] [id number] [facility] 2021-10-10 13:30:00 2021-10-10 13:30:00 Outpatient R PRASANNA VARGAS [facility] [id number] [facility] 2021-10-10 13:30:00 2021-10-10 13:30:00 Outpatient R PRASANNA VARGAS [facility] [id number] [facility] 2021-10-10 13:30:00 2021-10-10 13:30:00 Outpatient PRASANNA LOOMIS [facility] [id number] [facility] 2021-10-05 00:00:00 2021-10-05 00:00:00 Patient [facility] MEDICAL OFFICE BUILDING 1.2.840.114 350.1.13.10 4.2.7.2.686 [id number] [facility] 2021-10-05 00:00:00 2021-10-05 00:00:00 Patient Secure g [facility] MEDICAL OFFICE BUILDING 1.2.840.114 350.1.13.10 4.2.7.2.686 [id number] [facility] 2021-10-04 00:00:00 2021-10-04 00:00:00 Pre Visit Outreach Melia Rodriguez [place] 1.2.840.114 350.1.13.10 4.2.7.2.686 [id number] [facility] 2021-09-28 13:30:00 2021-09-28 13:45:00 Office Visit Onur Celnia A [facility] [address] 1.2.840.114 350.1.13.10 4.2.7.2.686 [id number] [facility] 2021-09-28 13:30:00 2021-09-28 13:30:00 Outpatient CELINA STONE [facility] [id number] [facility] 2021-09-28 13:30:00 2021-09-28 13:30:00 Outpatient CELINA STONE [facility] [id number] [facility] 2021-09-28 00:00:00 2021-09-28 00:00:00 Patient Secure Msg OnurCelina [facility] 1.2.840.114 350.1.13.10 4.2.7.2.686 [id number] [facility] 2021-09-27 14:00:00 2021-09-27 14:00:00 Outpatient TETO BRANTLEY [facility] [id number] [facility] 2021-09-27 09:30:00 2021-09-27 09:30:00 Outpatient DANIA RICARDO [facility] [id number] [facility] 2021-09-27 09:30:00 2021-09-27 09:30:00 Outpatient DANIA RICARDO [facility] [id number] [facility] 2021-09-27 09:30:00 2021-09-27 09:30:00 Outpatient DANIA RICARDO [facility] [id number] [facility] 2021-09-26 10:45:00 2021-09-26 10:45:00 Outpatient R CRICKET TAYLOR [facility] [id number] [facility] 2021-09-26 10:45:00 2021-09-26 10:45:00 Outpatient R CRICKET TAYLOR [facility] [id number] [facility] 2021-09-26 00:00:00 2021-09-26 00:00:00 Patient Secure [facility] MEDICAL OFFICE BUILDING 1.2.840.114 350.1.13.10 4.2.7.2.686 [id number] [facility] 2021-09-26 00:00:00 2021-09-26 00:00:00 Patient Secure Vijay Caraballo [facility] TOÑO?[facility] MEDICAL OFFICE BUILDING 1.2.840.114 350.1.13.10 4.2.7.2.686 [id number] [facility] 2021-09-25 10:20:00 2021-09-25 11:10:42 Urgent Care Flaco Boyd Ramsey Medranoanda [facility] MEDICAL OFFICE BUILDING 1.2.840.114 350.1.13.10 4.2.7.2.686 [id number] [facility] 2021-09-25 10:20:00 2021-09-25 11:10:42 Outpatient R OLIVERFLACO [facility] [id number] [facility] 2021-09-25 10:20:00 2021-09-25 10:20:00 Outpatient R FLACO BOYD [facility] [id number] [facility] 2021-09-25 10:00:00 2021-09-25 10:00:00 Outpatient R PRASANNA VARGAS [facility] [id number] [facility] 2021-09-25 00:00:00 2021-09-25 00:00:00 Telephone Noelle Boydtany [facility] MEDICAL OFFICE BUILDING 1.2.840.114 350.1.13.10 4.2.7.2.686 [id number] [facility] 2021-09-25 00:00:00 2021-09-25 00:00:00 Patient Secure Msg Prasanna [facility]as [facility] 1.2.840.114 350.1.13.10 4.2.7.2.686 [id number] [facility] 2021-09-25 00:00:00 2021-09-25 00:00:00 Telephone Cricket Taylor [facility] 1.2.840.114 350.1.13.10 4.2.7.2.686 [id number] [facility] 2021-09-25 00:00:00 2021-09-25 00:00:00 Telephone Celina Mixon [facility] 1.2.840.114 350.1.13.10 4.2.7.2.686 [id number] [facility] 2021-09-15 00:00:00 2021-09-15 00:00:00 Patient Secure Msg Kendal Zamudio [facility] MEDICAL OFFICE BUILDING 1.2840.114 350.1.13.10 4.2.7.2.686 [id number] [facility] 2021-09-15 00:00:00 2021-09-15 00:00:00 Patient Secure Msg Kendal Zamudio [facility] TOÑO?[facility] MEDICAL OFFICE BUILDING 1.2.840.114 350.1.13.10 4.2.7.2.686 [id number] [facility] 2021-09-15 00:00:00 2021-09-15 00:00:00 Patient Secure Msg Kendal Zamudio [facility] TOÑO?[facility] MEDICAL OFFICE BUILDING 1..114 350.1.13.10 4.2.7.2.686 [id number] [facility] 2021-09-14 00:00:00 2021-09-14 00:00:00 Patient Secure Msg Vijay Martinez [facility] TOÑO?[facility] MEDICAL OFFICE BUILDING 1..114 350.1.13.10 4.2.7.2.686 [id number] [facility] 2021-09-14 00:00:00 2021-09-14 00:00:00 Patient Secure Msg Doctor Unassigned, Basye [facility] MEDICAL OFFICE BUILDING 1.0114 350.1.13.10 4.2.7.2.686 [id number] [facility] 2021-09-12 10:30:00 2021-09-12 10:30:00 Outpatient CELINA STONE [facility] [id number] [facility] 2021-09-12 10:30:00 2021-09-12 10:30:00 Outpatient CELINA STONE [facility] [id number] [facility] 2021-09-12 00:00:00 2021-09-12 00:00:00 Patient Secure Msg Daniel Dsouza [facility] 1..114 350.1.13.10 4.2.7.2.686 [id number] [facility] 2021-09-12 00:00:00 2021-09-12 00:00:00 Orders Only Doctor Unassigned, Basye [facility] 1.0.114 350.1.13.10 4.2.7.2.686 [id number] [facility] 2021-09-12 00:00:00 2021-09-12 00:00:00 Patient Secure Msg Vijay Martinez [facility] TOÑO?[facility] MEDICAL OFFICE BUILDING 1.2840.114 350.1.13.10 4.2.7.2.686 [id number] [facility] 2021-09-05 00:00:00 2021-09-05 00:00:00 Patient Secure Msg Vijay Martinez [facility] TOÑO?[facility] MEDICAL OFFICE BUILDING 1.2840.114 350.1.13.10 4.2.7.2.686 [id number] [facility] 2021-09-05 00:00:00 2021-09-05 00:00:00 Patient Secure Msg Doctor Unassigned, Basye [facility] 1.840.114 350.1.13.10 4.2.7.2.686 [id number] [facility] 2021-09-05 00:00:00 2021-09-05 00:00:00 Patient Secure Msg Doctor Unassigned, Basye [facility] 1.2840.114 350.1.13.10 4.2.7.2.686 [id number] [facility] 2021-09-04 00:00:00 2021-09-04 00:00:00 Patient Secure Msg [facility]ij[facility] 1.2840.114 350.1.13.10 4.2.7.2.686 [id number] [facility] 2021-08-28 00:00:00 2021-08-28 00:00:00 Patient Secure Msg Harsh Charles [facility] 1.840.114 350.1.13.10 4.2.7.2.686 [id number] [facility] 2021-08-25 00:00:00 2021-08-25 00:00:00 Telephone Dania Pennington [facility] MEDICAL OFFICE BUILDING 1.2840.114 350.1.13.10 4.2.7.2.686 [id number] [facility] 2021-08-25 00:00:00 2021-08-25 00:00:00 Patient Secure Msg Vijay Martinez [facility] MEDICAL OFFICE BUILDING 1.2840.114 350.1.13.10 4.2.7.2.686 [id number] [facility] 2021-08-24 00:00:00 2021-08-24 00:00:00 Telephone Vijay Martinez [facility] MEDICAL OFFICE BUILDING 1.2840.114 350.1.13.10 4.2.7.2.686 [id number] [facility] 2021-08-24 00:00:00 2021-08-24 00:00:00 Patient Secure Msg Vijay Martinez [facility] MEDICAL OFFICE BUILDING 1.2840.114 350.1.13.10 4.2.7.2.686 [id number] [facility] 2021-08-23 00:00:00 2021-08-23 00:00:00 Patient Secure Msg Vijay Martinez [facility] MEDICAL OFFICE BUILDING 1.2840.114 350.1.13.10 4.2.7.2.686 [id number] [facility] 2021-08-23 00:00:00 2021-08-23 00:00:00 Telephone Vijay Martinez [facility] MEDICAL OFFICE BUILDING 1.2840.114 350.1.13.10 4.2.7.2.686 [id number] 044 [id number] [facility] 2021-08-22 00:00:00 2021-08-22 00:00:00 Telephone Vijay Martinez [facility] TOÑO?[facility] MEDICAL OFFICE BUILDING 1.840.114 350.1.13.10 4.2.7.2.686 [id number] [id number] [facility] 2021-08-22 00:00:00 2021-08-22 00:00:00 Patient Secure Msg Hallie Wilkinson [facility] TOÑO?[facility] MEDICAL OFFICE BUILDING 1.840.114 350.1.13.10 4.2.7.2.686 [id number] [facility] 2021-08-18 00:00:00 2021-08-18 00:00:00 Telephone Vijay Martinez [facility] TOÑO?[facility] MEDICAL OFFICE BUILDING 1.840.114 350.1.13.10 4.2.7.2.686 [id number] [facility] 2021-08-17 09:00:00 2021-08-17 09:00:00 Outpatient CELINA STONE [facility] [id number] [facility] 2021-08-17 09:00:00 2021-08-17 09:00:00 Outpatient CELINA STONE [facility] [id number] [facility] 2021-08-17 00:00:00 2021-08-17 00:00:00 Patient Secure Msg Prasanna Vargas [facility] PROFESSIO NAL BUILDING 1..840.114 350.1.13.10 4.2.7.2.686 [id number] [facility] 2021-08-17 00:00:00 2021-08-17 00:00:00 Patient Secure Msg Vijay Martinez [facility] TOÑO?[facility] MEDICAL OFFICE BUILDING 1.2840.114 350.1.13.10 4.2.7.2.686 [id number] [facility] 2021-08-17 00:00:00 2021-08-17 00:00:00 Patient Secure Msg Vijay Martinez [facility] MEDICAL OFFICE BUILDING 1.2840.114 350.1.13.10 4.2.7.2.686 [id number] [facility] 2021-08-16 00:00:00 2021-08-16 00:00:00 Patient Secure Msg Vijay Martinez [facility] MEDICAL OFFICE BUILDING 1.2840.114 350.1.13.10 4.2.7.2.686 [id number] [facility] 2021-08-16 00:00:00 2021-08-16 00:00:00 Patient Secure Msg Doctor Unassigned, Basye [facility] TOÑO?[facility] MEDICAL OFFICE BUILDING 1.84.114 350.1.13.10 4.2.7.2.686 [id number] [facility] 2021-08-16 00:00:00 2021-08-16 00:00:00 Patient Secure Msg Vijay Martinez [facility] MEDICAL OFFICE BUILDING 1.284.114 350.1.13.10 4.2.7.2.686 [id number] [facility] 2021-08-16 00:00:00 2021-08-16 00:00:00 Patient Secure Msg Vijay Martinez [facility] TOÑO?[facility] MEDICAL OFFICE BUILDING 1.284.114 350.1.13.10 4.2.7.2.686 [id number] [facility] 2021-08-15 15:30:00 2021-08-15 16:16:42 Office Visit Adán Kim [facility] MED[facility] OFF[facility] BUILDING 1.840.114 350.1.13.10 4.2.7.2.686 [id number] [facility] 2021-08-15 15:30:00 2021-08-15 16:16:42 [id number] 2021-08-15 15:30:00 2021-08-15 15:30:00 Outpatient Farzana KIM [facility] [id number] [facility] 2021-08-15 15:30:00 2021-08-15 15:30:00 Outpatient ADÁN DIEGO [facility] [id number] [facility] 2021-08-15 15:30:00 2021-08-15 15:30:00 Outpatient Farzana KIM [facility] [id number] [facility] 2021-08-15 09:27:00 2021-08-15 12:26:00 Emergency MAURA DALE [facility] ERT [id number] [facility] 2021-08-15 09:27:00 2021-08-15 12:26:00 Emergency Maura Samayoa [facility] 1..840.114 350.1.13.10 4.2.7.2.686 [id number] [facility] 2021-08-15 09:27:00 2021-08-15 12:26:00 Emergency MAURA DALE [facility] ERT [id number] [facility] 2021-08-15 00:00:00 2021-08-15 00:00:00 Patient Secure Msg Doctor Unassigned, Basye [facility] 1..840.114 350.1.13.10 4.2.7.2.686 [id number] [facility] 2021-08-14 13:25:00 2021-08-14 23:59:00 Outpatient VIJAY ARAUZ [facility] [id number] [facility] 2021-08-14 13:25:00 2021-08-14 23:59:00 Outpatient R VIJAY MARTINEZ [facility] [id number] [facility] 2021-08-14 13:25:00 2021-08-14 13:25:00 Outpatient R VÍCTORVIJAY Cannon [facility] [id number] [facility] 2021-08-14 12:19:07 2021-08-14 13:24:00 Outpatient R VÍCTORVIJAY Cannon [facility] [id number] [facility] 2021-08-14 12:19:07 2021-08-14 13:24:00 Outpatient R VÍCTORVIJAY Cannon [facility] [id number] [facility] 2021-08-14 12:30:00 2021-08-14 13:01:24 Pyrometer Temperature Regulator Visit Lab, Filippo Reneekassandra [facility] MEDICAL OFFICE BUILDING 1.2.840.114 350.1.13.10 4.2.7.2.686 [id number] [facility] 2021-08-14 12:30:00 2021-08-14 12:45:00 Pyrometer Temperature Regulator Visit Lab, Filippo Reneekassandra [facility] MEDICAL OFFICE BUILDING 1.2.840.114 350.1.13.10 4.2.7.2.686 [id number] [facility] 2021-08-14 11:30:00 2021-08-14 12:31:12 Office Visit Juan [facility] MEDICAL OFFICE BUILDING 1.2.840.114 350.1.13.10 4.2.7.2.686 [id number] [facility] 2021-08-14 11:30:00 2021-08-14 12:31:12 Outpatient R JUANCYIE [facility] [id number] [facility] 2021-08-14 00:00:00 2021-08-14 00:00:00 Patient Secure Msg Vijay Martinez [facility] TOÑO?[facility] 1.2.840.114 350.1.13.10 4.2.7.2.686 [id number] [facility] 2021-08-14 00:00:00 2021-08-14 00:00:00 Patient Secure Vijay Caraballo [facility] TOÑO?[facility] MEDICAL OFFICE BUILDING 1.2.840.114 350.1.13.10 4.2.7.2.686 [id number] [facility] 2021-08-09 14:45:00 2021-08-09 14:45:00 Outpatient R ADÁN KIM [facility] [id number] [facility] 2021-08-09 00:00:00 2021-08-09 00:00:00 Telephone Vijay Martinez [facility] TOÑO?[facility] 1.2.840.114 350.1.13.10 4.2.7.2.686 [id number] [facility] 2021-08-08 11:30:00 2021-08-08 23:59:00 Outpatient R JUAN VIJAY [facility] [id number] [facility] 2021-08-08 11:30:00 2021-08-08 23:59:00 Hospital Encounter Vijay Martinez [facility] TOÑO?[facility] 1.2.840.114 350.1.13.10 4.2.7.2.686 [id number] [facility] 2021-08-08 11:15:00 2021-08-08 11:15:00 Outpatient R JUAN VIJAY [facility] [id number] [facility] 2021-08-08 11:00:00 2021-08-08 11:00:00 Outpatient R VIJAY MARTINEZ [facility] [id number] [facility] 2021-08-08 00:00:00 2021-08-08 00:00:00 Patient Secure Msg Doctor Unassigned, Basye [facility] 1.114 350.1.13.10 4.2.7.2.686 [id number] [facility] 2021-08-07 09:30:00 2021-08-07 10:23:21 Office Visit Vijay Martinez [facility] TOÑO?[facility] MEDICAL OFFICE BUILDING 1.114 350.1.13.10 4.2.7.2.686 [id number] [facility] 2021-08-07 09:30:00 2021-08-07 10:23:21 Outpatient R VÍCTORVIJAY Cannon [facility] [id number] [facility] 2021-08-07 09:30:00 2021-08-07 09:30:00 Outpatient R VÍCTORVIJAY Cannon [facility] [id number] [facility] 2021-08-07 00:00:00 2021-08-07 00:00:00 Patient Secure Msg Vijay Martinez [facility] TOÑO?[facility] MEDICAL OFFICE BUILDING 1.114 350.1.13.10 4.2.7.2.686 [id number] [facility] 2021-08-07 00:00:00 2021-08-07 00:00:00 Patient Secure Msg Vijay Martinez [facility] TOÑO?[facility] MEDICAL OFFICE BUILDING 1.114 350.1.13.10 4.2.7.2.686 [id number] [facility] 2021-08-07 00:00:00 2021-08-07 00:00:00 Patient Secure Msg Celina Mixon [facility] 1.114 350.1.13.10 4.2.7.2.686 [id number] [facility] 2021-08-04 10:00:00 2021-08-04 10:00:00 Outpatient R PETRA RENO [facility] [id number] [facility] 2021-08-04 00:00:00 2021-08-04 00:00:00 Patient Secure Msg Vijay Martinez [facility] BUILDING 1.84114 350.1.13.10 4.2.7.2.686 [id number] [facility] 2021-08-03 11:00:00 2021-08-03 12:48:43 Office Visit Jayy Diaz [employer]. [id number] 350.1.13.10 4.2.7.2.686 [id number] [facility] 2021-08-03 11:00:00 2021-08-03 12:48:43 Outpatient R [facility]ILY [facility] [id number] [facility] 2021-08-03 11:00:00 2021-08-03 11:00:00 Outpatient R JAYY DIAZ [facility] [id number] [facility] 2021-08-03 00:00:00 2021-08-03 00:00:00 Patient Secure [employer] [facility] [place] .84.114 350.1.13.10 4.2.7.2.686 [id number] [facility] 2021-08-02 00:00:00 2021-08-02 00:00:00 [facility] [place] [facility] 1.84.114 350.1.13.10 4.2.7.2.686 [id number] [facility] 2021-07-21 08:00:00 2021-07-21 08:52:53 Outpatient DARRION QUIROZ HOWARD [facility] [id number] [facility] 2021-07-17 11:30:00 2021-07-17 11:30:00 Outpatient Farzana VÍCTORVIJAY Cannon [facility] [id number] [facility] 2021-07-17 00:00:00 2021-07-17 00:00:00 Patient Secure Msg Vijay Martinez [facility] [facility] TOÑO?[facility] OFFICE BUILDING 1.2.840.114 350.1.13.10 4.2.7.2.686 [id number] [id number] [facility] 2021-06-19 00:00:00 2021-06-19 00:00:00 Telephone VíctorVijay cannon [facility] MEDICAL OFFICE BUILDING 1.2.840.114 350.1.13.10 4.2.7.2.686 [id number] 044 [id number] [facility] 2021-06-09 00:00:00 2021-06-09 00:00:00 Telephone [facility] 1.2.840.114 350.1.13.10 4.2.7.2.686 [id number] [id number] [facility] 2021-06-06 11:15:00 2021-06-06 11:15:00 Outpatient TETO BRANTLEY [facility] [id number] [facility] 2021-06-06 11:15:00 2021-06-06 11:15:00 Outpatient TETO BRANTLEY [facility] [id number] [facility] 2021-06-02 15:45:00 2021-06-02 15:45:00 Outpatient CLAUDETTE CEDILLO [facility] [id number] [facility] 2021-05-31 10:00:00 2021-05-31 10:46:31 Outpatient R VIJAY MARTINEZ [facility] [id number] [facility] 2021-05-31 10:00:00 2021-05-31 10:46:31 Office Visit Vijay Martinez [facility] TOÑO?[facility] MEDICAL OFFICE BUILDING 1.2.840.114 350.1.13.10 4.2.7.2.686 [id number] [facility] 2021-05-31 10:00:00 2021-05-31 10:46:31 Outpatient R VIJAY MARTINEZ [facility] [id number] [facility] 2021-05-31 00:00:00 2021-05-31 00:00:00 Orders Only Doctor Unassigned, Basye [facility] 1.2.840.114 350.1.13.10 4.2.7.2.686 [id number] [facility] 2021-05-26 00:00:00 2021-05-26 00:00:00 Telephone Skylar Groves [facility] MEDICAL OFFICE BUILDING 1.2840.114 350.1.13.10 4.2.7.2.686 [id number] 044 [id number] [facility] 2021-05-26 00:00:00 2021-05-26 00:00:00 Patient Secure Msg [facility] 1.2840.114 350.1.13.10 4.2.7.2.686 [id number] [facility] 2021-05-25 14:00:00 2021-05-25 14:30:00 Telemedici ne Visit Skylar Groves [facility] TOÑO?[facility] MEDICAL OFFICE BUILDING 1.2.840.114 350.1.13.10 4.2.7.2.686 [id number] 044 [id number] [facility] 2021-05-25 14:00:00 2021-05-25 14:00:00 Outpatient R SKYLAR GROVES [facility] [id number] [facility] 2021-05-25 14:00:00 2021-05-25 14:00:00 Outpatient R SKYLAR GROVES [facility] [id number] [facility] 2021-05-25 00:00:00 2021-05-25 00:00:00 Patient Secure Msg Skylar Groves [facility] TOÑO?[facility] MEDICAL OFFICE BUILDING 1.2.840.114 350.1.13.10 4.2.7.2.686 [id number] 044 [id number] [facility] 2021-05-25 00:00:00 2021-05-25 00:00:00 Patient Secure Msg Skylar Groves [facility] OTÑO?[facility] MEDICAL OFFICE BUILDING 1.2.840.114 350.1.13.10 4.2.7.2.686 [id number] 044 [id number] [facility] 2021-05-24 00:00:00 2021-05-24 00:00:00 Telephone Rad Serra KPilarHPilar [facility] BUILDING 1.2.840.114 350.1.13.10 4.2.7.2.686 [id number] 059 [id number] [facility] 2021-05-24 00:00:00 2021-05-24 00:00:00 Patient Secure Msg Rad SerraHPilar [facility] BUILDING 1.2.840.114 350.1.13.10 4.2.7.2.686 [id number] [id number] [facility] 2021-05-24 00:00:00 2021-05-24 00:00:00 Patient Secure Msg SequoyahCarmelina ibrahimrico A [facility] TOÑO?[facility] MEDICAL OFFICE BUILDING 1.2.840.114 350.1.13.10 4.2.7.2.686 [id number] 044 [id number] [facility] 2021-05-23 10:00:00 2021-05-23 10:00:00 Outpatient R [facility] [id number] [facility] 2021-05-23 10:00:00 2021-05-23 10:00:00 Outpatient R [facility] [id number] [facility] 2021-05-23 00:00:00 2021-05-23 00:00:00 Patient Secure Msg Carmelina Evansrico A [facility] OFFICE BUILDING 1..840.114 350.1.13.10 4.2.7.2.686 [id number] [id number] [facility] 2021-05-16 09:00:00 2021-05-16 09:00:00 Outpatient R TETO CARNES [facility] [id number] [facility] 2021-05-12 00:00:00 2021-05-12 00:00:00 Orders Only Doctor Unassigned, Basye [facility] 1..840.114 350.1.13.10 4.2.7.2.686 [id number] [facility] 2021-05-10 13:00:00 2021-05-10 13:00:00 Outpatient R CLAUDETTE EVANS [facility] [id number] [facility] 2021-05-10 13:00:00 2021-05-10 13:00:00 Outpatient R CLAUDETTE EVANS [facility] [id number] [facility] 2021-05-09 00:00:00 2021-05-09 00:00:00 Telephone Prasanna Vargas [facility] PROFESSIO NAL BUILDING 1..840.114 350.1.13.10 4.2.7.2.686 [id number] [facility] 2021-05-09 00:00:00 2021-05-09 00:00:00 Patient Secure Msg [facility]Pilar [facility] 1.2.840.114 350.1.13.10 4.2.7.2.686 [id number] [facility] 2021-05-08 16:00:00 2021-05-08 16:00:00 Outpatient JE CRABTREE [facility] [id number] [facility] 2021-05-08 16:00:00 2021-05-08 16:00:00 Outpatient JE CRABTREE [facility] [id number] [facility] 2021-05-08 00:00:00 2021-05-08 00:00:00 Patient Secure Msg Rad SerraPilar [facility] BUILDING 1.2.840.114 350.1.13.10 4.2.7.2.686 [id number] [id number] [facility] 2021-05-08 00:00:00 2021-05-08 00:00:00 Patient Secure Msg Rad SerraPilar [facility] BUILDING 1.2.840.114 350.1.13.10 4.2.7.2.686 [id number] [id number] [facility] 2021-05-04 00:00:00 2021-05-04 00:00:00 Patient Secure Msg Rad [facility]raP[facility] NAL BUILDING 1.2.840.114 350.1.13.10 4.2.7.2.686 [id number] [id number] [facility] 2021-05-04 00:00:00 2021-05-04 00:00:00 Patient Secure Msg Reji [facility] 1.2.840.114 350.1.13.10 4.2.7.2.686 [id number] [facility] 2021-05-03 11:15:36 2021-05-03 23:59:00 [facility] [id number] [facility] 2021-05-03 11:15:36 2021-05-03 23:59:00 [facility] 1.2.840.114 350.1.13.10 4.2.7.2.686 [id number] [facility] 2021-05-03 00:00:00 2021-05-03 00:00:00 Telephone Claudette Evans [facility] TOÑO?[facility] MEDICAL OFFICE BUILDING 1.2.840.114 350.1.13.10 4.2.7.2.686 [id number] 044 [id number] [facility] 2021-05-02 00:00:00 2021-05-02 00:00:00 Telephone Rad Serra [facility] BUILDING 1..840.114 350.1.13.10 4.2.7.2.686 [id number] 059 [id number] [facility] 2021-05-02 00:00:00 2021-05-02 00:00:00 Patient Secure Msg Claudette Evans Kassandra [facility] TOÑO?[facility] MEDICAL OFFICE BUILDING 1.2.840.114 350.1.13.10 4.2.7.2.686 [id number] 044 [id number] [facility] 2021-05-02 00:00:00 2021-05-02 00:00:00 Telephone Claudette Evans [facility] TOÑO?[facility] MEDICAL OFFICE BUILDING 1.2.840.114 350.1.13.10 4.2.7.2.686 [id number] 044 [id number] [facility] 2021-05-02 00:00:00 2021-05-02 00:00:00 Patient Secure Msg Rad Serra [facility] PROFESSIO NAL BUILDING 1.84.114 350.1.13.10 4.2.7.2.686 [id number] 059 [id number] [facility] 2021-05-02 00:00:00 2021-05-02 00:00:00 Patient Secure Msg Claudette Evans [facility] TOÑO?[facility] MEDICAL OFFICE BUILDING 1.84114 350.1.13.10 4.2.7.2.686 [id number] 044 [id number] [facility] 2021-04-28 00:00:00 2021-04-28 00:00:00 Patient Secure Msg Claudette Evans [facility] TOÑO?[facility] OFFICE BUILDING 1.84.114 350.1.13.10 4.2.7.2.686 [id number] 044 [id number] [facility] 2021-04-27 14:24:00 2021-04-27 15:49:00 Emergency X MAGGIE HAMILTON [facility] ERT [id number] [facility] 2021-04-27 14:24:00 2021-04-27 15:49:00 Emergency Maggie Hamilton [facility] 1.84.114 350.1.13.10 4.2.7.2.686 [id number] [id number] [facility] 2021-04-27 11:15:00 2021-04-27 11:30:00 Laboratory Only Only, Ang Db Test Unknown, Attending Thony Johnson [facility] TOÑO?[facility] MEDICAL OFFICE BUILDING 1.84.114 350.1.13.10 4.2.7.2.686 [id number] [facility] 2021-04-27 11:15:00 2021-04-27 11:15:00 Outpatient R THONY JOHNSON [facility] [id number] [facility] 2021-04-27 00:00:00 2021-04-27 00:00:00 Orders Only Doctor Unassigned, Basye [facility] 1.2840.114 350.1.13.10 4.2.7.2.686 [id number] [facility] 2021-04-20 15:00:00 2021-04-20 15:00:00 Outpatient EEDR RENEE [facility] [id number] [facility] 2021-04-13 00:00:00 2021-04-13 00:00:00 Patient Secure Msg Carmelina Evansrico Kassandra [facility] TOÑO?[facility] MEDICAL OFFICE BUILDING 1.84.114 350.1.13.10 4.2.7.2.686 [id number] 044 [id number] [facility] 2021-04-12 00:00:00 2021-04-12 00:00:00 Telephone Claudette Evans [facility] TOÑO?[facility] MEDICAL OFFICE BUILDING 1.84.114 350.1.13.10 4.2.7.2.686 [id number] [facility] 2021-03-27 00:00:00 2021-03-27 00:00:00 Telephone [facility]anna [facility] NAL BUILDING 1.84.114 350.1.13.10 4.2.7.2.686 [id number] [facility] 2021-03-24 00:00:00 2021-03-24 00:00:00 Patient Secure Msg Doctor Unassigned, Basye [facility] 1.284114 350.1.13.10 4.2.7.2.686 [id number] [facility] 2021-03-23 13:30:00 2021-03-23 13:30:00 Outpatient PINO AGUIAR [facility] [id number] [facility] 2021-03-23 13:30:00 2021-03-23 13:30:00 Outpatient PINO AGUIAR [facility] [id number] [facility] 2021-03-22 09:20:00 2021-03-22 09:20:00 Outpatient R ADITYA MEEKS STRAHIL [facility] [id number] [facility] 2021-03-22 09:20:00 2021-03-22 09:20:00 Outpatient R ADITYA MEEKS STRAMOEz [facility] [id number] [facility] 2021-03-20 00:00:00 2021-03-20 00:00:00 Outpatient CLAUDETTE CEDILLO [facility] [id number] [facility] 2021-03-18 00:00:00 2021-03-18 00:00:00 [facility] MEDICAL OFFICE BUILDING .2.840.114 350.1.13.10 4.2.7.2.686 [id number] [facility] 2021-03-16 11:16:07 2021-03-16 11:31:07 Pyrometer Temperature Regulator Visit Lab, Ang - Db Cristina CarmelinaFormerly [facility] MEDICAL OFFICE BUILDING .2.840.114 350.1.13.10 4.2.7.2.686 [id number] [facility] 2021-03-16 11:30:00 2021-03-16 11:30:00 Outpatient R CLAUDETTE EVANS [facility] [id number] [facility] 2021-03-16 11:00:00 2021-03-16 11:14:45 Outpatient R CLAUDETTE EVANS [facility] [id number] [facility] 2021-03-16 10:00:58 2021-03-16 11:14:45 Office Visit Claudette Evans [facility] L[facility]UN[facility] 1.2.840.114 350.1.13.10 4.2.7.2.686 [id number] 044 [id number] [facility] 2021-03-16 00:00:00 2021-03-16 00:00:00 Patient Secure Msg Claudette Evans [facility] MEDICAL OFFICE BUILDING 1..840.114 350.1.13.10 4.2.7.2.686 [id number] [id number] [facility] 2021-03-02 16:15:00 2021-03-02 16:15:00 Outpatient R CRISTINACARMELINA IBRAHIMTAINABONNIE [facility] [id number] [facility] 2021-02-28 18:30:00 2021-02-28 18:30:00 Outpatient R ILEANA MEDRANO [facility] [id number] [facility] 2021-02-28 00:00:00 2021-02-28 00:00:00 Telephone [facility] Medical Office Building 1.2.840.114 350.1.13.10 4.2.7.2.686 [id number] [facility] 2021-02-27 09:00:00 2021-02-27 09:00:00 Outpatient R AMELIA HAMMOND [facility] [id number] [facility] 2021-02-23 00:00:00 2021-02-23 00:00:00 Telephone Claud[facility] Medical Office Building 1.2.840.114 350.1.13.10 4.2.7.2.686 [id number] 044 [id number] [facility] 2021-02-10 18:12:00 2021-02-10 23:39:00 Emergency Kaycee M[facility] 1.2.840.114 350.1.13.10 4.2.7.2.686 [id number] [facility] 2021-02-10 00:00:00 2021-02-10 00:00:00 Patient Secure Msg Carmelina Evansdiful A [facility] TO[facility]O?[facility] MEDICAL OFFICE BUILDING 1.2840.114 350.1.13.10 4.2.7.2.686 [id number] 044 [id number] [facility] 2021-02-10 00:00:00 2021-02-10 00:00:00 Patient Secure Msg Branden Evansful A [facility] ROSENE?[facility] MEDICAL OFFICE BUILDING 1.2840.114 350.1.13.10 4.2.7.2.686 [id number] 044 [id number] [facility] 2021-02-10 00:00:00 2021-02-10 00:00:00 Patient Secure Msg Branden Evansful A [facility] ANGLEDAYAMI TOÑO?[facility] MEDICAL OFFICE BUILDING 1.2840.114 350.1.13.10 4.2.7.2.686 [id number] 044 [id number] [facility] 2021-02-10 00:00:00 2021-02-10 00:00:00 Patient Secure Msg Branden Evansful A [facility] ANGLEDAYAMI TOÑO?[facility] MEDICAL OFFICE BUILDING 1.2840.114 350.1.13.10 4.2.7.2.686 [id number] 044 [id number] [facility] 2021-02-09 13:40:00 2021-02-09 23:59:00 Hospital Encounter Branden Evansful A [facility] Toño?[facility] Medical Office Building 1.2840.114 350.1.13.10 4.2.7.2.686 [id number] [facility] 2021-02-09 13:49:05 2021-02-09 14:04:05 Pyrometer Temperature Regulator Visit Lab, Ang - Db Claudette Evans [facility] Toño?[facility] Medical Office Building 1.2.840.114 350.1.13.10 4.2.7.2.686 [id number] [facility] 2021-02-09 12:23:13 2021-02-09 13:47:12 Office Visit Claud[facility] Medical Office Building 1..840.114 350.1.13.10 4.2.7.2.686 [id number] [facility] 2021-02-09 13:00:00 2021-02-09 13:00:00 Outpatient R CLAUDETTE EVANS [facility] [id number] [facility] 2021-02-09 00:00:00 2021-02-09 00:00:00 Patient Secure Msg Doctor Unassigned, Basye [facility] 1..840.114 350.1.13.10 4.2.7.2.686 [id number] [facility] 2021-02-08 10:20:00 2021-02-08 10:20:00 Outpatient R ADITYA MEEKS STRAHIL [facility] [id number] [facility] 2021-02-07 00:00:00 2021-02-07 00:00:00 Patient Secure Msg Claud[facility] TO[facility] MEDICAL OFFICE BUILDING 1.2.840.114 350.1.13.10 4.2.7.2.686 [id number] [id number] [facility] 2021-02-02 10:30:00 2021-02-02 10:30:00 Outpatient R SKYLAR GROVES [facility] [id number] [facility] 2021-02-02 00:00:00 2021-02-02 00:00:00 Telephone Claudette Evans [facility] Toño?[facility] Medical Office Building 1.2840.114 350.1.13.10 4.2.7.2.686 [id number] [facility] 2021-02-01 08:30:00 2021-02-01 08:30:00 Outpatient R BRODIE SKYLAR [facility] [id number] [facility] 2021-01-31 18:44:04 2021-01-31 19:41:26 [facility] To[facility] Medical Office Building 1.2840.114 350.1.13.10 4.2.7.2.686 [id number] [facility] 2021-01-31 19:00:00 2021-01-31 19:00:00 Outpatient R FLACO BOYD [facility] [id number] [facility] 2021-01-31 00:00:00 2021-01-31 00:00:00 Telephone Claudette Evans [facility] Toño?[facility] Medical Office Building 1.84.114 350.1.13.10 4.2.7.2.686 [id number] 044 [id number] [facility] 2021-01-31 00:00:00 2021-01-31 00:00:00 Patient Secure Msg Cluadette Evans [facility] TOÑO?[facility] MEDICAL OFFICE BUILDING 1.2840.114 350.1.13.10 4.2.7.2.686 [id number] 044 [id number] [facility] 2021-01-30 00:00:00 2021-01-30 00:00:00 [facility] Building 1.84.114 350.1.13.10 4.2.7.2.686 [id number] [facility] 2021-01-30 00:00:00 2021-01-30 00:00:00 Patient Secure Msg Claudette Evans [facility] OFFICE BUILDING ONE 1.840.114 350.1.13.10 4.2.7.2.686 [id number] [facility] 2021-01-26 14:00:00 2021-01-26 14:00:00 Outpatient R RAD SERRA [facility] [id number] [facility] 2021-01-26 00:00:00 2021-01-26 00:00:00 Patient Secure g Skylar Groves [facility] TOÑO?[facility] OFFICE BUILDING 1..840.114 350.1.13.10 4.2.7.2.686 [id number] [id number] [facility] 2021-01-25 15:00:00 2021-01-25 15:00:00 Outpatient R [facility] [id number] [facility] 2021-01-21 00:00:00 2021-01-21 00:00:00 Patient Secure g Skylar Groves [facility] TOÑO?[facility] MEDICAL OFFICE BUILDING 1..840.114 350.1.13.10 4.2.7.2.686 [id number] [id number] [facility] 2021-01-20 16:51:22 2021-01-20 17:12:41 Telemedici ne Visit Skylar Groves [facility] Toño?[facility] Medical Office Building 1..840.114 350.1.13.10 4.2.7.2.686 [id number] [facility] 2021-01-20 16:30:00 2021-01-20 16:30:00 Outpatient R SKYLAR GROVES [facility] [id number] [facility] 2021-01-19 10:15:00 2021-01-19 10:15:00 Outpatient R KAYLEY GARCÍA [facility] [id number] [facility] 2021-01-14 00:00:00 2021-01-14 00:00:00 Case Management Kassandra Robledo [facility] 1.840.114 350.1.13.10 4.2.7.2.686 [id number] [facility] 2021-01-14 00:00:00 2021-01-14 00:00:00 Patient Secure Msg Doctor Unassigned, Basye [facility] 1.840.114 350.1.13.10 4.2.7.2.686 [id number] [facility] 2021-01-12 16:10:00 2021-01-12 19:45:00 Emergency Karin [facility] 1.840.114 350.1.13.10 4.2.7.2.686 [id number] [facility] 2021-01-12 15:20:00 2021-01-12 15:20:00 Outpatient ILEANA CASE [facility] [id number] [facility] 2021-01-12 14:46:57 2021-01-12 15:06:57 Urgent Care Thony Johnson [facility] Medical Office Building 1..840.114 350.1.13.10 4.2.7.2.686 [id number] [facility] 2020-12-26 15:30:00 2020-12-26 16:13:32 Outpatient RAD MATAMOROS [facility] [id number] [facility] 2020-12-26 15:30:00 2020-12-26 16:13:32 Office Visit Rad Serra [facility] PROFESSIO NAL BUILDING 1..840.114 350.1.13.10 4.2.7.2.686 [id number] [facility] 2020-12-26 15:00:32 2020-12-26 16:13:32 Office Visit Rad Serra [facility] Building 1.2.840.114 350.1.13.10 4.2.7.2.686 [id number] [facility] 2020-12-26 15:30:00 2020-12-26 15:30:00 Outpatient R RAD SERRA [facility] [id number] [facility] 2020-11-29 00:00:00 2020-11-29 00:00:00 Patient Secure Msg [facility] BUILDING 1.2.840.114 350.1.13.10 4.2.7.2.686 [id number] [facility] 2020-11-22 11:00:00 2020-11-22 11:00:00 Outpatient R CELINA MIXON [facility] [id number] [facility] 2020-11-10 18:42:46 2020-11-10 19:53:43 Urgent Care Dennis [facility] Office Building One 1.2.840.114 350.1.13.10 4.2.7.2.686 [id number] 2020-11-10 19:00:00 2020-11-10 19:00:00 Outpatient R [facility] [id number] [facility] 2020-10-31 18:52:00 2020-10-31 22:15:00 Emergency Kaycee M[facility]dez [facility] 1.2.840.114 350.1.13.10 4.2.7.2.686 [id number] 2020-10-31 19:00:00 2020-10-31 19:00:00 Outpatient CARI TUTTLE [facility] [id number] [facility] 2020-10-31 00:00:00 2020-10-31 00:00:00 Orders Only Doctor Unassigned, Basye [facility] 1.2.840.114 350.1.13.10 4.2.7.2.686 [id number] 2020-10-20 14:02:00 2020-10-20 17:13:00 Emergency Dev Kaycee [facility] 1.2.840.114 350.1.13.10 4.2.7.2.686 [id number] 2020-10-18 00:00:00 2020-10-18 00:00:00 Patient Secure [facility] 1.2.840.114 350.1.13.10 4.2.7.2.686 [id number] [facility] 2020-10-14 10:00:00 2020-10-14 23:59:00 Hospital Encounter Prasanna Vargas [facility] 1.2.840.114 350.1.13.10 4.2.7.2.686 [id number] 2020-10-14 13:30:00 2020-10-14 13:30:00 Outpatient CELINA STONE [facility] [id number] [facility] 2020-10-11 00:00:00 2020-10-11 00:00:00 Patient Secure Msg Prasanna Vargas [facility] 1.2.840.114 350.1.13.10 4.2.7.2.686 [id number] 134 [id number] [facility] 2020-10-11 00:00:00 2020-10-11 00:00:00 Patient Secure Msg Prasanna Vargas [facility] 1.2.840.114 350.1.13.10 4.2.7.2.686 [id number] 134 [id number] [facility] 2020-10-09 12:00:00 2020-10-09 15:57:00 Emergency [facility] 1.2.840.114 350.1.13.10 4.2.7.2.686 [id number] 2020-10-07 00:00:00 2020-10-07 00:00:00 Patient Secure Msg Prasanna Vargas [facility] 1.2.840.114 350.1.13.10 4.2.7.2.686 [id number] 134 [id number] [facility] 2020-10-07 00:00:00 2020-10-07 00:00:00 Patient Secure Msg Prasanna Vargas [facility] 1.2.840.114 350.1.13.10 4.2.7.2.686 [id number] 134 [id number] [facility] 2020-10-07 00:00:00 2020-10-07 00:00:00 Patient Secure Msg Prasanna Vargas [facility] 1.2.840.114 350.1.13.10 4.2.7.2.686 [id number] 134 [id number] [facility] 2020-10-07 00:00:00 2020-10-07 00:00:00 Patient Secure Msg Prasanna Vargas [facility] 1.2.840.114 350.1.13.10 4.2.7.2.686 [id number] 134 [id number] [facility] 2020-10-07 00:00:00 2020-10-07 00:00:00 Patient Secure Msg Prasanna Vargas [facility] 1.2.840.114 350.1.13.10 4.2.7.2.686 [id number] 134 [id number] [facility] 2020-10-07 00:00:00 2020-10-07 00:00:00 Patient Secure Msg Prasanna Vargas [facility] 1.2.840.114 350.1.13.10 4.2.7.2.686 [id number] 134 [id number] [facility] 2020-10-07 00:00:00 2020-10-07 00:00:00 Patient Secure Msg Prasanna Vargas [facility] 1.2.840.114 350.1.13.10 4.2.7.2.686 [id number] 134 [id number] [facility] 2020-10-06 08:53:00 2020-10-06 09:46:44 Office Visit Prasanna Vargas [facility] 1.2.840.114 350.1.13.10 4.2.7.2.686 [id number] 134 [id number] 2020-10-06 09:30:00 2020-10-06 09:30:00 Outpatient PRASANNA LOOMIS [facility] [id number] [facility] 2020-10-04 14:00:00 2020-10-04 14:00:00 Outpatient CELINA STONE [facility] [id number] [facility] 2020-09-30 10:30:00 2020-09-30 10:30:00 Outpatient CELINA STONE [facility] [id number] [facility] 2020-09-29 13:45:00 2020-09-29 13:45:00 Outpatient PREET KRISHNA [facility] [id number] [facility] 2020-09-06 15:30:00 2020-09-06 15:30:00 Outpatient PRASANNA LOOMIS [facility] [id number] [facility] 2020-09-05 00:00:00 2020-09-05 00:00:00 Patient Secure Prasanna Kang [facility] 1.2.840.114 350.1.13.10 4.2.7.2.686 [id number] 134 [id number] [facility] 2020-09-02 15:40:00 2020-09-02 15:40:00 Outpatient DARRION QUIROZ HOWARD [facility] [id number] [facility] 2020-08-31 10:30:00 2020-08-31 10:30:00 Outpatient RDA MATAMOROS [facility] [id number] [facility] 2020-08-31 00:00:00 2020-08-31 00:00:00 Patient Secure Prasanna Kang [facility] 1.2.840.114 350.1.13.10 4.2.7.2.686 [id number] 134 [id number] [facility] 2020-08-18 09:30:00 2020-08-18 09:30:00 Outpatient PRASANNA LOOMIS [facility] [id number] [facility] 2020-08-11 13:30:00 2020-08-11 13:30:00 Outpatient PRASANNA LOOMIS [facility] [id number] [facility] 2020-08-04 14:00:00 2020-08-04 14:00:00 Outpatient EDER RENEE [facility] [id number] [facility] 2020-07-28 10:30:00 2020-07-28 10:30:00 Outpatient RAD MATAMOROS [facility] [id number] [facility] 2020-06-30 16:15:00 2020-06-30 16:15:00 Outpatient CLAUDETTE CEDILLO [facility] [id number] [facility] 2020-06-17 15:00:00 2020-06-17 15:00:00 Outpatient DARRION QUIROZ HOWARD [facility] [id number] [facility] 2020-06-16 15:30:00 2020-06-16 15:30:00 Outpatient R SERRARAD GRACIA [facility] [id number] [facility] 2020-06-09 12:30:00 2020-06-09 12:30:00 Outpatient R NI DISLA [facility] [id number] [facility] 2020-06-08 08:00:00 2020-06-08 08:00:00 Outpatient R NI DISLA [facility] [id number] [facility] 2020-06-02 09:00:00 2020-06-02 09:00:00 Outpatient R REENA SERRAZOHRA [facility] [id number] [facility] 2020-05-28 10:00:00 2020-05-28 10:00:00 Outpatient R CARI KAUR [facility] [id number] [facility] 2020-05-26 00:00:00 2020-05-26 00:00:00 Patient Secure Msg Claudette Evans [facility] 1.2.840.114 350.1.13.10 4.2.7.2.686 [id number] [facility] 2020-05-24 10:00:00 2020-05-24 10:00:00 Outpatient R NI DISLA [facility] [id number] [facility] 2020-05-24 00:00:00 2020-05-24 00:00:00 Patient Secure Msg Doctor Unassigned, Basye [facility] 1.2.840.114 350.1.13.10 4.2.7.2.686 [id number] [facility] 2020-05-19 16:30:00 2020-05-19 16:30:00 Outpatient R JACK OSITO [facility] [id number] [facility] 2020-05-17 13:00:00 2020-05-17 13:00:00 Outpatient DARRION QUIROZ HOWARD [facility] [id number] [facility] 2020-05-16 16:00:00 2020-05-16 16:00:00 Outpatient Farzana CRISTINA CARMELINARICO [facility] [id number] [facility] 2020-05-09 00:00:00 2020-05-09 00:00:00 Patient Secure Msg Carmelina Evanstainabonnie [facility] ONE .840.114 350.1.13.10 4.2.7.2.686 [id number] [facility] 2020-05-08 10:24:00 2020-05-08 13:03:00 Emergency X AN GARVINALA [facility] ERT [id number] [facility] 2020-05-03 15:00:00 2020-05-03 15:00:00 Outpatient R CRISTINACARMELINABONNIE [facility] [id number] [facility] 2020-04-30 11:14:00 2020-05-01 15:50:00 Outpatient X RODRIGUEZ HOFF [facility] [id number] [facility] 2020-04-30 10:20:00 2020-04-30 10:20:00 Outpatient R ROSALES SHAY [facility] [id number] [facility] 2020-04-30 10:15:00 2020-04-30 10:15:00 Outpatient R ROSALES SHAY [facility] [id number] [facility] 2020-04-29 00:00:00 2020-04-29 00:00:00 Patient Secure Osito Rodrigues [facility] .840.114 350.1.13.10 4.2.7.2.686 [id number] [facility] [id number] [facility] 2020-04-28 14:00:00 2020-04-28 14:00:00 Outpatient OSITO AMARO [facility] [id number] [facility] 2020-04-25 16:15:00 2020-04-25 16:15:00 Outpatient R CRISTINA CARMELINARICO [facility] [id number] [facility] 2020-04-22 00:00:00 2020-04-22 00:00:00 [facility] 1.2.840.114 350.1.13.10 4.2.7.2.686 [id number] [facility] 2020-04-18 10:00:00 2020-04-18 10:00:00 Outpatient OSITO AMARO [facility] [id number] [facility] 2020-04-15 10:30:00 2020-04-15 10:30:00 Outpatient RAD MATAMOROS [facility] [id number] [facility] 2020-04-12 13:38:00 2020-04-13 16:25:00 [facility] [id number] 2020-03-17 16:15:00 2020-03-17 16:15:00 Outpatient TETO BRANTLEY [facility] [id number] [facility] 2020-03-04 00:00:00 2020-03-04 00:00:00 Osito Barnes [facility] 1.2.840.114 350.1.13.10 4.2.7.2.686 [id number] 2020-02-25 16:00:00 2020-02-25 16:00:00 Outpatient OSITO AMARO [facility] [id number] [facility] 2020 14:00:00 2020 14:00:00 [id number] 2020-02-08 10:30:00 2020-02-08 10:30:00 Outpatient R PRASANNA VARGAS [facility] [id number] [facility] 2020-02-05 00:00:00 2020-02-05 00:00:00 Patient Secure Msg Prasanna Vargas [facility] 1.2.840.114 350.1.13.10 4.2.7.2.686 [id number] 134 [id number] [facility] 2020-02-04 13:30:00 2020-02-04 13:30:00 Outpatient R JACK, OSITO [facility] [id number] [facility] 2020-01-23 10:15:00 2020-01-23 10:15:00 Outpatient R [facility] [id number] [facility] 2020-01-21 13:00:00 2020-01-21 13:00:00 Outpatient R JACK, OSITO [facility] [id number] [facility] 2020-01-14 16:00:00 2020-01-14 16:00:00 Outpatient R JACK OSITO [facility] [id number] [facility] 2020-01-05 13:45:00 2020-01-05 13:45:00 Outpatient R PRASANNA VARGAS [facility] [id number] [facility] 2020-01-05 00:00:00 2020-01-05 00:00:00 Patient Secure Prasanna Kang [facility] 1.2.840.114 350.1.13.10 4.2.7.2.686 [id number] [facility] 2019-12-03 10:30:00 2019-12-03 10:30:00 Outpatient R CRICKET TAYLOR [facility] [id number] [facility] 2019-11-27 11:00:00 2019-11-27 11:00:00 Outpatient R TETO CARNES [facility] [id number] [facility] 2019-11-26 00:00:00 2019-11-26 00:00:00 Patient Secure Msg Doctor Unassigned, Basye [facility] 1.2.840.114 350.1.13.10 4.2.7.2.686 [id number] [facility] 2019-11-25 08:00:00 2019-11-25 08:00:00 Outpatient TETO BRANTLEY [facility] [id number] [facility] 2019-11-23 00:00:00 2019-11-23 00:00:00 Patient Secure Msg Doctor Unassigned, Basye [facility] 1.2.840.114 350.1.13.10 4.2.7.2.686 [id number] [facility] 2019-11-18 10:00:00 2019-11-18 10:00:00 Outpatient TETO BRANTLEY [facility] [id number] [facility] 2019-11-17 00:00:00 2019-11-17 00:00:00 Patient Secure Msg Doctor Unassigned, Basye [facility] 1.2.840.114 350.1.13.10 4.2.7.2.686 [id number] 134 [id number] [facility] 2019-11-13 00:00:2019-11-13 00:00:00 Patient Secure Msg Prasanna Vargas Jm [facility] 1.2.840.114 350.1.13.10 4.2.7.2.686 [id number] 134 [id number] [facility] 2019-09-02 11:00:00 2019-09-02 11:00:00 Outpatient CRICKET FRYE [facility] [id number] [facility] 2019-08-14 10:15:00 2019-08-14 10:15:00 Outpatient TETO BRANTLEY [facility] [id number] [facility] 2019-08-13 11:00:00 2019-08-13 11:00:00 Outpatient R CRICKET TAYLOR [facility] [id number] [facility] 2019-08-12 09:00:00 2019-08-12 09:00:00 Outpatient R [facility] [id number] [facility] 2019-07-20 16:06:00 2019-07-20 16:06:00 Outpatient P PRASANNA VARGAS [facility] [id number] [facility] 2019-07-20 08:15:00 2019-07-20 08:15:00 Outpatient R CRICKET TAYLOR [facility] [id number] [facility] 2019-07-13 08:00:00 2019-07-13 08:00:00 Outpatient R CRICKET TAYLOR [facility] [id number] [facility] 2019-07-12 13:39:00 2019-07-12 13:39:00 Outpatient P PRASANNA VARGAS [facility] [id number] [facility] 2019-07-06 13:00:00 2019-07-06 13:00:00 [id number] 2019-06-13 10:40:46 2019-06-13 12:35:00 Emergency X SARAHI AVILA [facility] ERT [id number] [facility] 2019-05-13 23:07:00 2019-05-14 09:15:00 Outpatient P PRASANNA VARGAS [facility] [id number] [facility] Results Test Description Test Time Test Comments Results Result Co mments Source [facility] 16:39:24* Test Item Value Reference Range Interpretation Comme nts LIPASE (test code = 9744182120) 40 U/L 0-220 Lab Interpretation (test cod e = 33295-4) Normal [facility] [id number] 16:27:28EXAM: CT ABDOMEN PELVIS W CONTRAST HISTORY: 28 years-old Female: epigastric pain TECHNIQUE: Contiguous axial imaging from the level of the lung basesthrough the proximal thighs was performed with intravenous contrast.Coronal and sagittal reconstructions were obtained. COMPARISON: CT abdomen pelvis dated 01/11/2023 FINDINGS: LOWER THORAX: The lung bases are clear. No pleural or pericardial effusion.LIVER AND BILIARY: ?The liver is normal in size and contour. No focalhepatic lesion is seen. Prior cholecystectomy. ?No intra or extrahepaticbiliary ductal dilation is visualized. PANCREAS: Normal morphology and enhancement. No ductal dilation or massesare visualized. SPLEEN: The spleen is borderline enlarged, measures up to 12.5 cm. Asubcentimeter round hypodensity within the spleen parenchyma is too smallto characterize. ADRENAL GLANDS: No adrenal masses are seen. KIDNEYS, URETERS, AND BLADDER: ?Normal renal size, morphology, andenhancement. ?No solid masses. ?A 4 mm nonobstructing renal stone is seenin the right superior calyx. No hydronephrosis. ?The bladder appearsunremarkable. REPRODUCTIVE ORGANS: Normal reproductive organs. GI TRACT AND PERITONEUM: No dilation or bowel wall thickening is seen. Theappendix appears unremarkable. No intra-abdominal free air or fluidcollection is visu alized. Moderate to large amount of formed stool are seenwithin the entire colon and rectum. VESSELS: Unremarkable. No abdominal aortic aneurysm. LYMPH NODES: No lymphadenopathy. BONES AND SOFT TISSUES: No aggressive osseous lesion. ?A smallfat-containing umbilical hernia is present. A subcentimeter hypodensity isseen within the right gluteal soft tissue.[facility] CBC WITH [id number] 16:14:18* Test Item Value Reference Range Interpretation Comme nts WBC (test code = 6690-2) 6.32 See_Comment [Automated [employer]] The system which generated this result transmitted reference range: 4.30 - 11.10 10*3/?L. The reference range was not used to interpret this result as normal/abnormal. RBC (test code = 789-8) 4.61 See_Comment [Automated [employer]] The system which generated this result transmitted reference range: 3.93 - 5.25 10*6/?L. The reference range was not used to interpret this result as normal/abnormal. HGB (test code = 718-7) 13.9 g/dL 11.6-15.0 HCT (test code = 4544-3) 40.8 % 35.7-45.2 MCV (test code = 787-2) 88.5 fL 80.6-95.5 MCH (test code = 785-6) 30.2 pg 25.9-32.8 MCHC (test code = 786-4) 34.1 g/dL 31.6-35.1 RDW-SD (test code = 66431-7) 42.0 fL 39.0-49.9 RDW-CV (test code = 788-0) 13.0 % 12.0-15.5 PLT (test code = 777-3) 369 See_Comment H [Automated [employer]] The system which generated this result transmitted reference range: 166 - 358 10*3/?L. The reference range was not used to interpret this result as normal/abnormal. MPV (test code = 48946-3) 9.9 fL 9.5-12.9 NRBC/100 WBC (test code = 5004252792) 0.0 See_Comment [Automated [employer] ssage] The system which generated this result transmitted reference range: 0.0 - 10.0 /100 WBCs. The reference range was not used to interpret this result as normal/abnormal. NRBC x10^3 (test code = 8641584052) See_Comment [Automated [employer]] The system which generated this result transmitted reference range: 10*3/?L. The reference range was not used to interpret this result as normal/abnormal. GRAN MAT (NEUT) % (test code = 770-8) 64.8 % IMM GRAN % (test code = 1246578276) 0.50 % LYMPH % (test code = 736-9) 25.3 % MONO % (test code = 5905-5) 4.1 % EOS % (test code = 713-8) 4.7 % BASO % (test code = 706-2) 0.6 % GRAN MAT x10^3(ANC) (test code = 0335918993) 4.09 10*3/uL 1.88-7.09 IMM GRAN x10^3 (test code = 2119576872) 0.03 10*3/uL 0.00-0.06 LYMPH x10^3 (test code = 731-0) 1.60 10*3/uL 1.32-3.29 MONO x10^3 (test code = 742-7) 0.26 10*3/uL 0.33-0.92 L EOS x10^3 (test code = 711-2) 0.30 10*3/uL 0.03-0.39 BASO x10^3 (test code = 704-7) 0.04 10*3/uL 0.01-0.07 Lab Interpretation (test code = 68599-2) Abnormal [facility] [id number] 15:31:00* Test Item Value Reference Range Interpretation Comme nts POCT PREG (test code = 1605) Negative On board controls acceptable with C Line (test code = 3574) Yes POCT PREG LOT # (test code = 3575) [id number] POCT PREG TEST DATE ( test code = 3576) 2024-07-21 Lab Interpretation (test cod e = 11286-9) Normal [facility] WITH [id number] 04:28:47* Test Item Value Reference Range Interpretation Comme nts WBC (test code = 6690-2) 5.45 See_Comment [Automated [employer]] The system which generated this result transmitted reference range: 4.30 - 11.10 10*3/?L. The reference range was not used to interpret this result as normal/abnormal. RBC (test code = 789-8) 4.59 See_Comment [Automated [employer]] The system which generated this result transmitted reference range: 3.93 - 5.25 10*6/?L. The reference range was not used to interpret this result as normal/abnormal. HGB (test code = 718-7) 13.1 g/dL 11.6-15.0 HCT (test code = 4544-3) 38.5 % 35.7-45.2 MCV (test code = 787-2) 83.9 fL 80.6-95.5 MCH (test code = 785-6) 28.5 pg 25.9-32.8 MCHC (test code = 786-4) 34.0 g/dL 31.6-35.1 RDW-SD (test code = 80947-0) 40.3 fL 39.0-49.9 RDW-CV (test code = 788-0) 13.1 % 12.0-15.5 PLT (test code = 777-3) 307 See_Comment [Automated messa ge] The system which generated this result transmitted reference range: 166 - 358 10*3/?L. The reference range was not used to interpret this result as normal/abnormal. MPV (test code = 60173-5) 11.0 fL 9.5-12.9 NRBC/100 WBC (test code = 1785176012) 0.0 See_Comment [Automated me ssage] The system which generated this result transmitted reference range: 0.0 - 10.0 /100 WBCs. The reference range was not used to interpret this result as normal/abnormal. NRBC x10^3 (test code = 3647846028) See_Comment [Automated messa ge] The system which generated this result transmitted reference range: 10*3/?L. The reference range was not used to interpret this result as normal/abnormal. GRAN MAT (NEUT) % (test code = 770-8) 52.0 % IMM GRAN % (test code = 5705424652) 0.20 % LYMPH % (test code = 736-9) 38.0 % MONO % (test code = 5905-5) 4.6 % EOS % (test code = 713-8) 4.6 % BASO % (test code = 706-2) 0.6 % GRAN MAT x10^3(ANC) (test code = 7811412361) 2.84 10*3/uL 1.88-7.09 IMM GRAN x10^3 (test code = 2239402368) 0.00-0.06 LYMPH x10^3 (test code = 731-0) 2.07 10*3/uL 1.32-3.29 MONO x10^3 (test code = 742-7) 0.25 10*3/uL 0.33-0.92 L EOS x10^3 (test code = 711-2) 0.25 10*3/uL 0.03-0.39 BASO x10^3 (test code = 704-7) 0.03 10*3/uL 0.01-0.07 Lab Interpretation (test code = 68611-6) [facility]normal [facility] (43525)2023-01-12 04:12:43* Test Item Value Reference Range Interpretation Comme nts NA (test code = 3792938753) 137 mmol/L 135-145 K (test code = 2203018496) 3.4 mmol/L 3.5-5.0 L CL (test code = 3103589760) 104 mmol/L 98-108 CO2 TOTAL (test code = 9847402936) 24 mmol/L 23-31 AGAP (test code = 3657702875) 9 2-16 BUN (test code = 4508559056) 2 mg/dL 7-23 L GLUCOSE (test code = 3630401005) 92 mg/dL 70-110 CREATININE (test code = 6085984256) 0.80 mg/dL 0.50-1.04 TOTAL BILI (test code = 7303017662) 0.4 mg/dL 0.1-1.1 CALCIUM (test code = 8640006564) 8.4 mg/dL 8.6-10.6 L T PROTEIN (test code = 1678906245) 6.3 g/dL 6.3-8.2 ALBUMIN (test code = 5719521701) 3.7 g/dL 3.5-5.0 ALK PHOS (test code = 9802957654) 87 U/L 34-122 ALTv (test code = 1742-6) 27 U/L 5-35 AST(SGOT) (test code = 6938629353) 33 U/L 13-40 eGFR (test code = 3495672621) 86.0 mL/min/1.73m2 WESLEY (test code = WESLEY) Association [...] imaging tests). Lab Interpretation (test code = 27777-7) Abnormal [facility]. METABOLIC PANEL (60946)2023-01-12 04:12:43* Test Item Value Reference Range Interpretation Comme nts NA (test code = 8249415524) 137 mmol/L 135-145 K (test code = 4014057243) 3.4 mmol/L 3.5-5.0 L CL (test code = 1076645560) 104 mmol/L 98-108 CO2 TOTAL (test code = 6524814781) 24 mmol/L 23-31 AGAP (test code = 0190621843) 9 2-16 BUN (test code = 2390103853) 2 mg/dL 7-23 L GLUCOSE (test code = 0443354434) 92 mg/dL 70-110 CREATININE (test code = 9461291231) 0.80 mg/dL 0.50-1.04 TOTAL BILI (test code = 7373457814) 0.4 mg/dL 0.1-1.1 CALCIUM (test code = 6908676275) 8.4 mg/dL 8.6-10.6 L T PROTEIN (test code = 4390350662) 6.3 g/dL 6.3-8.2 ALBUMIN (test code = 8819096759) 3.7 g/dL 3.5-5.0 ALK PHOS (test code = 2512708423) 87 U/L 34-122 ALTv (test code = 1742-6) 27 U/L 5-35 AST(SGOT) (test code = 8640211819) 33 U/L 13-40 eGFR (test code = 5414006332) 86.0 mL/min/1.73m2 WESLEY (test code = WESLEY) Association [...] imaging tests). Lab Interpretation (test code = 75287-6) [facility] 04:07:04 BETA HCG<2.39Non- female and male patients: <5 mIU/mL01/11/2023 11:07 PM [facility] Gestational Age ?Range (mIU/mL) 1-10 ?Weeks ?[id number] Weeks ?97935-10779201-04 Weeks ?0978-36445614-83 Weeks ?1531-679520 Biotin has been reported to cause a negative bias, interpret results relative to patient's use of biotin. Gestational Age ?Range (mIU/mL) 1-10 ?Weeks ?[id number] Weeks ?11844-44825281-64 Weeks ?1734-73009629-23 Weeks?1531-374093 Biotin has been reported to cause a negative bias, interpret results relative to patient's use of biotin. Gestational Age ?Range (mIU/mL) 1-10 ?Weeks ?[id number] Weeks ?97682-75027381-88 Weeks ?3187-81810866-41 Weeks ?1531-867172 Biotin has been reported to cause a negative bias, interpretresults relative to patient's use of biotin.[facility]23-[facility]-12 04:07:04BETA HCG<2.39Non- female and male patients: <5 mIU/mL01/11/2023 11:07 PM [facility] Gestational Age ?Range (mIU/mL) 1-10 ?Weeks ?[id number] Weeks ?02565-58572667-41 Weeks ?3115-27997296-28 Weeks ?1531-486450 Biotin has been reported to cause a negative bias, interpret results relative topatient's use of biotin. Gestational Age ?Range (mIU/mL) 1-10 ?Weeks ?[id number] Weeks ?54113-76789666-17 Weeks ?0099-55804294-69 Weeks?1531-917651 Biotin has been reported to cause a negative bias, interpret results relative to patient's use of biotin. Gestational Age ?Range (mIU/mL) 1-10 ?Weeks ?[phone] Weeks ?16430-38447428-80 Weeks ?1584-80565818-13 Weeks ?1531-707323 Biotin has been reported to cause a negative bias, interpretresults relative to patient's use of biotin.[facility] 2023-01-12 03:22:58* Test Item Value Reference Range Interpretation Comme nts LIPASE (test code = 8662016000) 41 U/L 0-220 Lab Interpretation (test cod e = 86482-7) Normal [facility]2023-09-02 03:22:58* Test Item Value Reference Range Interpretation Comme nts LIPASE (test code = 1312895223) 41 U/L 0-220 Lab Interpretation (test cod e = 55403-0) Normal [facility] [id number] 03:02:00* Test Item Value Reference Range Interpretation Comme nts POCT PREG (test code = 1605) Negative On board controls acceptable with C Line (test code = 3574) Yes POCT PREG LOT # (test code = 3575) [id number] POCT PREG TEST DATE ( test code = 3576) 05/15/2024 Lab Interpretation (test cod e = 41950-4) Normal [facility] [id number] 03:02:00* Test Item Value Reference Range Interpretation Comme nts POCT PREG (test code = 1605) Negative On board controls acceptable with C Line (test code = 3574) Yes POCT PREG LOT # (test code = 3575) [id number] POCT PREG TEST DATE ( test code = 3576) 05/15/2024 Lab Interpretation (test cod e = 30383-4) Normal [facility] [id number] 00:23:34* Test Item Value Reference Range Interpretation Comme nts PREG SERUM (test code = 0526024239) Negative WESLEY (test code = WESLEY) Less than 10 IU/L. ?If low titer or ectopic is suspected, resubmit specimen in 48-72 hours. [facility]. METABOLIC PANEL (02599)2022-07-31 23:58:12* Test Item Value Reference Range Interpretation Comme nts NA (test code = 1007411857) 140 mmol/L 135-145 K (test code = 4151578569) 3.6 mmol/L 3.5-5.0 CL (test code = 0440512981) 106 mmol/L 98-108 CO2 TOTAL (test code = 0364032098) 21 mmol/L 23-31 L AGAP (test code = 7241966820) 13 2-16 BUN (test code = 9430267587) 8 mg/dL 7-23 GLUCOSE (test code = 6386160191) 90 mg/dL 70-110 CREATININE (test code = 6498771084) 0.90 mg/dL 0.50-1.04 TOTAL BILI (test code = 6217211002) 0.5 mg/dL 0.1-1.1 CALCIUM (test code = 4967091107) 9.0 mg/dL 8.6-10.6 T PROTEIN (test code = 0258733796) 7.8 g/dL 6.3-8.2 ALBUMIN (test code = 5310699234) 4.6 g/dL 3.5-5.0 ALK PHOS (test code = 6982756536) 63 U/L 34-122 ALTv (test code = 1742-6) 23 U/L 5-35 AST(SGOT) (test code = 3809458153) 27 U/L 13-40 eGFR (test code = 9736784852) 75.1 mL/min/1.73m2 WESLEY (test code = WESLEY) Association [...] imaging tests). Lab Interpretation (test code = 40563-9) [facility]normal [facility] 23:57:32* Test Item Value Reference Range Interpretation Comme nts LIPASE (test code = 9694736964) 55 U/L 0-220 Lab Interpretation (test cod e = 95019-1) Normal [facility] WITH [id number] 23:47:31* Test Item Value Reference Range Interpretation Comme nts WBC (test code = 6690-2) 5.64 See_Comment [Automated [employer]] The system which generated this result transmitted reference range: 4.30 - 11.10 10*3/?L. The reference range was not used to interpret this result as normal/abnormal. RBC (test code = 789-8) 4.51 See_Comment [Automated [employer]] The system which generated this result transmitted reference range: 3.93 - 5.25 10*6/?L. The reference range was not used to interpret this result as normal/abnormal. HGB (test code = 718-7) 13.0 g/dL 11.6-15.0 HCT (test code = 4544-3) 39.9 % 35.7-45.2 MCV (test code = 787-2) 88.5 fL 80.6-95.5 MCH (test code = 785-6) 28.8 pg 25.9-32.8 MCHC (test code = 786-4) 32.6 g/dL 31.6-35.1 RDW-SD (test code = 29943-3) 42.5 fL 39.0-49.9 RDW-CV (test code = 788-0) 13.0 % 12.0-15.5 PLT (test code = 777-3) 339 See_Comment [Automated messa ge] The system which generated this result transmitted reference range: 166 - 358 10*3/?L. The reference range was not used to interpret this result as normal/abnormal. MPV (test code = 11394-2) 9.4 fL 9.5-12.9 L NRBC/100 WBC (test code = 1417926083) 0.0 See_Comment [Automated [employer]age] The system which generated this result transmitted reference range: 0.0 - 10.0 /100 WBCs. The reference range was not used to interpret this result as normal/abnormal. NRBC x10^3 (test code = 9078067847) See_Comment [Automated [employer]] The system which generated this result transmitted reference range: 10*3/?L. The reference range was not used to interpret this result as normal/abnormal. GRAN MAT (NEUT) % (test code = 770-8) 51.2 % IMM GRAN % (test code = 7479198926) 0.20 % LYMPH % (test code = 736-9) 36.5 % MONO % (test code = 5905-5) 5.7 % EOS % (test code = 713-8) 5.9 % BASO % (test code = 706-2) 0.5 % GRAN MAT x10^3(ANC) (test code = 2977218271) 2.89 10*3/uL 1.88-7.09 IMM GRAN x10^3 (test code = 7446795153) 0.00-0.06 LYMPH x10^3 (test code = 731-0) 2.06 10*3/uL 1.32-3.29 MONO x10^3 (test code = 742-7) 0.32 10*3/uL 0.33-0.92 L EOS x10^3 (test code = 711-2) 0.33 10*3/uL 0.03-0.39 BASO x10^3 (test code = 704-7) 0.03 10*3/uL 0.01-0.07 Lab Interpretation (test code = 79781-0) [facility]normal [facility] [id number] 16:14:38* Test Item Value Reference Range Interpretation Comme nts POCT Molecular Strep (test c ode = 85498-5) Negative Negative Lab Interpretation (test cod e = 20206-6) Normal [facility]. METABOLIC PANEL (94269)2022-05-05 19:35:37* Test Item Value Reference Range Interpretation Comme nts NA (test code = 7063698924) 139 mmol/L 135-145 K (test code = 0977451314) 4.4 mmol/L 3.5-5.0 CL (test code = 1496912246) 104 mmol/L 98-108 CO2 TOTAL (test code = 5182149994) 22 mmol/L 23-31 L AGAP (test code = 5312371155) 2-16 BUN (test code = 5384926222) 11 mg/dL 7-23 GLUCOSE (test code = 0714543999) 95 mg/dL 70-110 CREATININE (test code = 1070754618) 0.71 mg/dL 0.50-1.04 TOTAL BILI (test code = 7199291801) 0.4 mg/dL 0.1-1.1 CALCIUM (test code = 9884266909) 9.1 mg/dL 8.6-10.6 T PROTEIN (test code = 0902801222) 7.9 g/dL 6.3-8.2 ALBUMIN (test code = 6411900044) 4.7 g/dL 3.5-5.0 ALK PHOS (test code = 1130297304) 114 U/L 34-122 ALTv (test code = 1742-6) 21 U/L 5-35 AST(SGOT) (test code = 0100496153) 21 U/L 13-40 eGFR (test code = 8084745037) mL/min/1.73m2 WESLEY (test code = WESLEY) Association [...] imaging tests). Lab Interpretation (test code = 69036-0) Abnormal [facility] WITH [id number] 19:25:37* Test Item Value Reference Range Interpretation Comme nts WBC (test code = 6690-2) See_Comment [Automated [employer]] The system which generated this result transmitted reference range: 4.30 - 11.10 10*3/?L. The reference range was not used to interpret this result as normal/abnormal. RBC (test code = 789-8) See_Comment [Automated [employer]] The system which generated this result transmitted reference range: 3.93 - 5.25 10*6/?L. The reference range was not used to interpret this result as normal/abnormal. HGB (test code = 718-7) 13.1 g/dL 11.6-15.0 HCT (test code = 4544-3) 39.8 % 35.7-45.2 MCV (test code = 787-2) 88.4 fL 80.6-95.5 MCH (test code = 785-6) 29.1 pg 25.9-32.8 MCHC (test code = 786-4) 32.9 g/dL 31.6-35.1 RDW-SD (test code = 68839-6) 41.7 fL 39.0-49.9 RDW-CV (test code = 788-0) 12.7 % 12.0-15.5 PLT (test code = 777-3) See_Comment H [Automated [employer]] The system which generated this result transmitted reference range: 166 - 358 10*3/?L. The reference range was not used to interpret this result as normal/abnormal. MPV (test code = 78092-9) 8.8 fL 9.5-12.9 L NRBC/100 WBC (test code = 5617998936) See_Comment [Automated [employer]] The system which generated this result transmitted reference range: 0.0 - 10.0 /100 WBCs. The reference range was not used to interpret this result as normal/abnormal. NRBC x10^3 (test code = 7600294144) See_Comment [Automated [employer]] The system which generated this result transmitted reference range: 10*3/?L. The reference range was not used to interpret this result as normal/abnormal. GRAN MAT (NEUT) % (test code = 770-8) 56.1 % IMM GRAN % (test code = 8635358541) 0.40 % LYMPH % (test code = 736-9) 29.9 % MONO % (test code = 5905-5) 5.4 % EOS % (test code = 713-8) 7.8 % BASO % (test code = 706-2) 0.4 % GRAN MAT x10^3(ANC) (test code = 9982315459) 3.75 10*3/uL 1.88-7.09 IMM GRAN x10^3 (test code = 1449326611) 0.03 10*3/uL 0.00-0.06 LYMPH x10^3 (test code = 731-0) 2.00 10*3/uL 1.32-3.29 MONO x10^3 (test code = 742-7) 0.36 10*3/uL 0.33-0.92 EOS x10^3 (test code = 711-2) 0.52 10*3/uL 0.03-0.39 H BASO x10^3 (test code = 704-7) 0.03 10*3/uL 0.01-0.07 Lab Interpretation (test code = 23724-2) [facility] [id number] 19:00:00* Test Item Value Reference Range Interpretation Comme nts POCT PREG (test code = 1605) negative On board controls acceptable with C Line (test code = 3574) present POCT PREG LOT # (test code = 3575) [id number] POCT PREG TEST DATE ( test code = 3576) 08-11-2023 Lab Interpretation (test cod e = 89451-3) Normal [facility] WITH [id number] 15:21:11* Test Item Value Reference Range Interpretation Comme nts WBC (test code = 6690-2) See_Comment [[employer]ated [employer]] The system which generated this result transmitted reference range: 4.30 - 11.10 10*3/?L. The reference range was not used to interpret this result as normal/abnormal. RBC (test code = 789-8) See_Comment [Automated [employer]] The system which generated this result transmitted reference range: 3.93 - 5.25 10*6/?L. The reference range was not used to interpret this result as normal/abnormal. HGB (test code = 718-7) 13.4 g/dL 11.6-15.0 HCT (test code = 4544-3) 40.6 % 35.7-45.2 MCV (test code = 787-2) 89.2 fL 80.6-95.5 MCH (test code = 785-6) 29.5 pg 25.9-32.8 MCHC (test code = 786-4) 33.0 g/dL 31.6-35.1 RDW-SD (test code = 20437-3) 42.6 fL 39.0-49.9 RDW-CV (test code = 788-0) 12.9 % 12.0-15.5 PLT (test code = 777-3) See_Comment H [Automated messa ge] The system which generated this result transmitted reference range: 166 - 358 10*3/?L. The reference range was not used to interpret this result as normal/abnormal. MPV (test code = 87325-0) 9.1 fL 9.5-12.9 L NRBC/100 WBC (test code = 5480536247) See_Comment [Automated [employer]] The system which generated this result transmitted reference range: 0.0 - 10.0 /100 WBCs. The reference range was not used to interpret this result as normal/abnormal. NRBC x10^3 (test code = 4977701505) See_Comment [[employer]ated [employer]] The system which generated this result transmitted reference range: 10*3/?L. The reference range was not used to interpret this result as normal/abnormal. GRAN MAT (NEUT) % (test code = 770-8) 56.8 % IMM GRAN % (test code = 8715681334) 0.30 % LYMPH % (test code = 736-9) 29.5 % MONO % (test code = 5905-5) 4.3 % EOS % (test code = 713-8) 8.3 % BASO % (test code = 706-2) 0.8 % GRAN MAT x10^3(ANC) (test code = 2311670504) 3.57 10*3/uL 1.88-7.09 IMM GRAN x10^3 (test code = 0109427966) 0.00-0.06 LYMPH x10^3 (test code = 731-0) 1.85 10*3/uL 1.32-3.29 MONO x10^3 (test code = 742-7) 0.27 10*3/uL 0.33-0.92 L EOS x10^3 (test code = 711-2) 0.52 10*3/uL 0.03-0.39 H BASO x10^3 (test code = 704-7) 0.05 10*3/uL 0.01-0.07 Lab Interpretation (test code = 47292-2) [facility]OL[facility] (08790)2022-04-26 15:12:13* Test Item Value Reference Range Interpretation Comme nts NA (test code = 2831977963) 141 mmol/L 135-145 K (test code = 6024065280) 3.4 mmol/L 3.5-5.0 L CL (test code = 0787373330) 104 mmol/L 98-108 CO2 TOTAL (test code = 5439269694) 23 mmol/L 23-31 AGAP (test code = 7774969274) 2-16 BUN (test code = 9826209154) 9 mg/dL 7-23 GLUCOSE (test code = 1424110516) 101 mg/dL 70-110 CREATININE (test code = 2696919088) 0.82 mg/dL 0.50-1.04 TOTAL BILI (test code = 8085964799) 0.7 mg/dL 0.1-1.1 CALCIUM (test code = 3755068375) 9.3 mg/dL 8.6-10.6 T PROTEIN (test code = 8269669269) 8.1 g/dL 6.3-8.2 ALBUMIN (test code = 3265844327) 4.7 g/dL 3.5-5.0 ALK PHOS (test code = 6529695182) 108 U/L 34-122 ALTv (test code = 1742-6) 24 U/L 5-35 AST(SGOT) (test code = 9909964972) 49 U/L 13-40 H eGFR (test code = 5455128414) mL/min/1.73m2 WESLEY (test code = WESLEY) Association [...] imaging tests). Lab Interpretation (test code = 46004-6) Abnormal [facility] [id number] 14:45:00* Test Item Value Reference Range Interpretation Comme nts POCT PREG (test code = 1605) negative On board controls acceptable with C Line (test code = 3574) present POCT PREG LOT # (test code = 3575) [id number] POCT PREG TEST DATE ( test code = 3576) 08/11/2023 Lab Interpretation (test cod e = 64877-1) Normal [facility] [id number] 01:22:00* Test Item Value Reference Range Interpretation Comme nts POCT PREG (test code = 1605) Negative On board controls acceptable with C Line (test code = 3574) Present POCT PREG LOT # (test code = 3575) [id number] POCT PREG TEST DATE ( test code = 3576) 08-11-2023 Lab Interpretation (test cod e = 94413-1) Normal [facility] METABOLIC PANEL (NA, K, CL, CO2, GLUCOSE, BUN, CREATININE, CA)2022-04-07 23:01:10* Test Item Value Reference Range Interpretation Comme nts NA (test code = 8844013821) 138 mmol/L 135-145 K (test code = 2430747572) 4.3 mmol/L 3.5-5.0 CL (test code = 3329324944) 107 mmol/L 98-108 CO2 TOTAL (test code = 4957476342) 20 mmol/L 23-31 L AGAP (test code = 0801018632) 2-16 BUN (test code = 3600153059) 9 mg/dL 7-23 GLUCOSE (test code = 2081399948) 204 mg/dL 70-110 H CREATININE (test code = 2645067106) 0.74 mg/dL 0.50-1.04 CALCIUM (test code = 1050790149) 9.1 mg/dL 8.6-10.6 eGFR (test code = 9559873721) mL/min/1.73m2 WESLEY (test code = WESLEY) Association [...] imaging tests). Lab Interpretation (test code = 67461-7) Abnormal [facility] WITH [id number] 22:57:34* Test Item Value Reference Range Interpretation Comme nts WBC (test code = 6690-2) See_Comment [Automated messa ge] The system which generated this result transmitted reference range: 4.30 - 11.10 10*3/?L. The reference range was not used to interpret this result as normal/abnormal. RBC (test code = 789-8) See_Comment [Automated [employer]] The system which generated this result transmitted reference range: 3.93 - 5.25 10*6/?L. The reference range was not used to interpret this result as normal/abnormal. HGB (test code = 718-7) 12.2 g/dL 11.6-15.0 HCT (test code = 4544-3) 36.4 % 35.7-45.2 MCV (test code = 787-2) 87.7 fL 80.6-95.5 MCH (test code = 785-6) 29.4 pg 25.9-32.8 MCHC (test code = 786-4) 33.5 g/dL 31.6-35.1 RDW-SD (test code = 47105-7) 42.9 fL 39.0-49.9 RDW-CV (test code = 788-0) 13.4 % 12.0-15.5 PLT (test code = 777-3) See_Comment H [Automated [employer]] The system which generated this result transmitted reference range: 166 - 358 10*3/?L. The reference range was not used to interpret this result as normal/abnormal. MPV (test code = 03898-5) 8.9 fL 9.5-12.9 L NRBC/100 WBC (test code = 3449243105) See_Comment [Automated [employer]] The system which generated this result transmitted reference range: 0.0 - 10.0 /100 WBCs. The reference range was not used to interpret this result as normal/abnormal. NRBC x10^3 (test code = 4221068020) See_Comment [Automated [employer]] The system which generated this result transmitted reference range: 10*3/?L. The reference range was not used to interpret this result as normal/abnormal. GRAN MAT (NEUT) % (test code = 770-8) 88.7 % IMM GRAN % (test code = 4829248484) 0.70 % LYMPH % (test code = 736-9) 9.4 % MONO % (test code = 5905-5) 0.9 % EOS % (test code = 713-8) 0.1 % BASO % (test code = 706-2) 0.2 % GRAN MAT x10^3(ANC) (test code = 9180118067) 7.81 10*3/uL 1.88-7.09 H IMM GRAN x10^3 (test code = 3640662639) 0.06 10*3/uL 0.00-0.06 LYMPH x10^3 (test code = 731-0) 0.83 10*3/uL 1.32-3.29 L MONO x10^3 (test code = 742-7) 0.08 10*3/uL 0.33-0.92 L EOS x10^3 (test code = 711-2) 0.03-0.39 L BASO x10^3 (test code = 704-7) 0.01-0.07 Lab Interpretation (test code = 01205-2) Abnormal [facility] [id number] 14:07:00* Test Item Value Reference Range Interpretation Comme nts POCT PREG (test code = 1605) negative On board controls acceptable with C Line (test code = 3574) present POCT PREG LOT # (test code = 3575) [id number] POCT PREG TEST DATE ( test code = 3576) 08/11/2023 Lab Interpretation (test cod e = 29885-2) Normal [facility] [id number] 13:52:00* Test Item Value Reference Range Interpretation Comme nts POCT PREG (test code = 1605) negative On board controls acceptable with C Line (test code = 3574) present Lab Interpretation (test cod e = 50312-9) Normal [facility] [id number] 14:59:00* Test Item Value Reference Range Interpretation Comme nts POCT PREG (test code = 1605) negative On board controls acceptable with C Line (test code = 3574) yes POCT PREG LOT # (test code = 3575) [id number] POCT PREG TEST DATE ( test code = 3576) 07/11/2023 Lab Interpretation (test cod e = 04264-7) Normal [facility]. METABOLIC PANEL (92744)2022 17:51:43* Test Item Value Reference Range Interpretation Comme nts NA (test code = 4656727483) 139 mmol/L 135-145 K (test code = 5022337438) 4.1 mmol/L 3.5-5 CL (test code = 3629325279) 104 mmol/L 98-108 CO2 TOTAL (test code = 4285892300) 22 mmol/L 23-31 L AGAP (test code = 5850230917) 2-16 BUN (test code = 0302158565) 7 mg/dL 7-23 GLUCOSE (test code = 0680382639) 114 mg/dL 70-110 H CREATININE (test code = 0069798900) 0.69 mg/dL 0.5-1.04 TOTAL BILI (test code = 6606089312) 0.4 mg/dL 0.1-1.1 CALCIUM (test code = 5513108157) 9.7 mg/dL 8.6-10.6 T PROTEIN (test code = 1856971689) 7.2 g/dL 6.3-8.2 ALBUMIN (test code = 7803710659) 4.6 g/dL 3.5-5 ALK PHOS (test code = 5731201597) 65 U/L 34-122 ALTv (test code = 1742-6) 15 U/L 5-35 AST(SGOT) (test code = 3846439342) 19 U/L 13-40 eGFR (test code = 9010381960) mL/min/1.73m2 WESLEY (test code = WESLEY) Association [...] imaging tests). Lab Interpretation (test code = 87041-2) Abnormal [facility] WITH [id number] 17:40:24* Test Item Value Reference Range Interpretation Comme nts WBC (test code = 6690-2) See_Comment [[employer]] The system which generated this result transmitted reference range: 4.30 - 11.10 10*3/?L. The reference range was not used to interpret this result as normal/abnormal. RBC (test code = 789-8) See_Comment [[employer]] The system which generated this result transmitted reference range: 3.93 - 5.25 10*6/?L. The reference range was not used to interpret this result as normal/abnormal. HGB (test code = 718-7) 13.4 g/dL 11.6-15 HCT (test code = 4544-3) 40.2 % 35.7-45.2 MCV (test code = 787-2) 89.1 fL 80.6-95.5 MCH (test code = 785-6) 29.7 pg 25.9-32.8 MCHC (test code = 786-4) 33.3 g/dL 31.6-35.1 RDW-SD (test code = 48932-1) 43.1 fL 39-49.9 RDW-CV (test code = 788-0) 13.2 % 12-15.5 PLT (test code = 777-3) See_Comment [[employer]] The system which generated this result transmitted reference range: 166 - 358 10*3/?L. The reference range was not used to interpret this result as normal/abnormal. MPV (test code = 49276-4) 9.5 fL 9.5-12.9 NRBC/100 WBC (test code = 2796086792) See_Comment [Automated [employer]age] The system which generated this result transmitted reference range: 0.0 - 10.0 /100 WBCs. The reference range was not used to interpret this result as normal/abnormal. NRBC x10^3 (test code = 6448722275) See_Comment [Automated messa ge] The system which generated this result transmitted reference range: 10*3/?L. The reference range was not used to interpret this result as normal/abnormal. GRAN MAT (NEUT) % (test code = 770-8) 57.8 % IMM GRAN % (test code = 2333637945) 0.20 % LYMPH % (test code = 736-9) 30.8 % MONO % (test code = 5905-5) 5.1 % EOS % (test code = 713-8) 5.6 % BASO % (test code = 706-2) 0.5 % GRAN MAT x10^3(ANC) (test code = 2677800682) 3.61 10*3/uL 1.88-7.09 IMM GRAN x10^3 (test code = 1228001525) 0-0.06 LYMPH x10^3 (test code = 731-0) 1.92 10*3/uL 1.32-3.29 MONO x10^3 (test code = 742-7) 0.32 10*3/uL 0.33-0.92 L EOS x10^3 (test code = 711-2) 0.35 10*3/uL 0.03-0.39 BASO x10^3 (test code = 704-7) 0.03 10*3/uL 0.01-0.07 Lab Interpretation (test code = 92969-3) [facility] [id number] 17:27:00* Test Item Value Reference Range Interpretation Comme nts POCT PREG (test code = 1605) negative On board controls acceptable with C Line (test code = 3574) present POCT PREG LOT # (test code = 3575) [id number] POCT PREG TEST DATE ( test code = 3576) Lab Interpretation (test cod e = 44158-3) Normal [facility] 12:45:21* Test Item Value Reference Range Interpretation Comme nts LIPASE (test code = 3446992966) 41 U/L 0-220 Lab Interpretation (test cod e = 23413-5) Normal [facility] [id number] 10:57:00* Test Item Value Reference Range Interpretation Comme nts POCT PREG (test code = 1605) Negative On board controls acceptable with C Line (test code = 3574) Present POCT PREG LOT # (test code = 3575) [id number] POCT PREG TEST DATE ( test code = 357) 03/12/2023 Lab Interpretation (test cod e = 64635-3) Normal [facility] (NA, K, CL, CO2, GLUCOSE, BUN, CREATININE, CA)2022-01-18 10:56:51* Test Item Value Reference Range Interpretation Comme nts NA (test code = 9101174595) 137 mmol/L 135-145 K (test code = 4481899017) 4.6 mmol/L 3.5-5 Slight hemolysis CL (test code = 5143656418) 108 mmol/L 98-108 CO2 TOTAL (test code = 1976694781) 22 mmol/L 23-31 L AGAP (test code = 7357227346) 2-16 BUN (test code = 8393809137) 11 mg/dL 7-23 Slight hemolysis GLUCOSE (test code = 4492514111) 83 mg/dL 70-110 CREATININE (test code = 3033286050) 0.68 mg/dL 0.5-1.04 CALCIUM (test code = 2885720235) 8.8 mg/dL 8.6-10.6 eGFR (test code = 8804618595) mL/min/1.73m2 WESLEY (test code = WESLEY) Association [...] imaging tests). Lab Interpretation (test code = 20926-9) Abnormal [facility] (60795) (ALB,T.PRO,BILI T,BU/BC,ALT,AST,ALK PHOS)2022-01-18 10:56:51* Test Item Value Reference Range Interpretation Comme nts TOTAL BILI (test code = 5373922447) 0.6 mg/dL 0.1-1.1 BILI UNCON (test code = 1490491635) 0.1 mg/dL 0.1-1.1 BILI CONJ (test code = 9785711263) 0.0 mg/dL 0-0.3 T PROTEIN (test code = 0057057900) 8.6 g/dL 6.3-8.2 H ALBUMIN (test code = 8444657351) 5.1 g/dL 3.5-5 H ALK PHOS (test code = 2021297523) 79 U/L 34-122 ALTv (test code = 1742-6) 117 U/L 5-35 H AST(SGOT) (test code = 9900587379) 163 U/L 13-40 H Lab Interpretation (test cod e = 70971-4) [facility] [id number] 10:54:25* Test Item Value Reference Range Interpretation Comme nts PREG SERUM (test code = 8419930657) Negative WESLEY (test code = WESLEY) Less than 10 IU/L. ?If low titer or ectopic is suspected, resubmit specimen in 48-[address] [facility] [id number] 10:40:49* Test Item Value Reference Range Interpretation Comme nts WBC (test code = 6690-2) See_Comment [Automated messa ge] The system which generated this result transmitted reference range: 4.30 - 11.10 10*3/?L. The reference range was not used to interpret this result as normal/abnormal. RBC (test code = 789-8) See_Comment [Automated messa ge] The system which generated this result transmitted reference range: 3.93 - 5.25 10*6/?L. The reference range was not used to interpret this result as normal/abnormal. HGB (test code = 718-7) 14.4 g/dL 11.6-15 HCT (test code = 4544-3) 42.9 % 35.7-45.2 MCV (test code = 787-2) 86.3 fL 80.6-95.5 MCH (test code = 785-6) 29.0 pg 25.9-32.8 MCHC (test code = 786-4) 33.6 g/dL 31.6-35.1 RDW-SD (test code = 07551-4) 45.3 fL 39-49.9 RDW-CV (test code = 788-0) 14.5 % 12-15.5 PLT (test code = 777-3) See_Comment [Automated messa ge] The system which generated this result transmitted reference range: 166 - 358 10*3/?L. The reference range was not used to interpret this result as normal/abnormal. MPV (test code = 11910-7) 9.5 fL 9.5-12.9 NRBC/100 WBC (test code = 8897141486) See_Comment [Automated [place] ssage] The system which generated this result transmitted reference range: 0.0 - 10.0 /100 WBCs. The reference range was not used to interpret this result as normal/abnormal. NRBC x10^3 (test code = 7140957911) See_Comment [Automated messa ge] The system which generated this result transmitted reference range: 10*3/?L. The reference range was not used to interpret this result as normal/abnormal. GRAN MAT (NEUT) % (test code = 770-8) 47.6 % IMM GRAN % (test code = 3628988213) 0.60 % LYMPH % (test code = 736-9) 39.9 % MONO % (test code = 5905-5) 5.9 % EOS % (test code = 713-8) 5.3 % BASO % (test code = 706-2) 0.7 % GRAN MAT x10^3(ANC) (test code = 7099535978) 4.45 10*3/uL 1.88-7.09 IMM GRAN x10^3 (test code = 9428946367) 0.06 10*3/uL 0-0.06 LYMPH x10^3 (test code = 731-0) 3.74 10*3/uL 1.32-3.29 H MONO x10^3 (test code = 742-7) 0.55 10*3/uL 0.33-0.92 EOS x10^3 (test code = 711-2) 0.50 10*3/uL 0.03-0.39 H BASO x10^3 (test code = 704-7) 0.07 10*3/uL 0.01-0.07 Lab Interpretation (test code = 42587-2) Abnormal [facility] BGNZ2444-83-90 18:31:00* Test Item Value Reference Range Interpretation Comme nts POCT PREG (test code = 1605) Negative On board controls acceptable with C Line (test code = 3574) Yes POCT PREG LOT # (test code = 3575) POCT PREG TEST DATE ( test code = 3576) [facility] URINALYSIS W/O SPECIFIC KETEGMN5509-07-73 18:31:00* Test Item Value Reference Range Interpretation Comme nts POCT PH U (test code = 3254) 5 mg/dl 5-8 POCT U LEUK EST (test code = 3263) Neg Negative - Negative POCT U NIT (test code = 3262) Neg Negative - Negati ve POCT U PROT (test code = 3259) Trace Negative - Negat bonifacio POCT U GLU (test code = 3256) Neg Negative - Negati ve POCT U KETONE (test code = 3258) Neg Negative - Neg ative POCT U BLD (test code = 3257) Trace Negative - Negati ve [facility] Consult Notes Date/Time Note Provider Source 2023-01-12 00:12:43 Cw8EdMP3T2yIN5nT4Pqo R0WPxdSc4nq16wGqvg/e/i JBoTJtaAGIoxeRPwYzgoij8090-95-70E35:12:43A ssociated Order(s): CONSULT GENERAL SURGERY TRAUMA/ACS Surgery Consult NoteAttending: MrazekReason for Consult: gallbladder fossa fluid collection s/p lap pasquale History of Present Illness:Nikko Dyson is a 27 year old female, with past medical history of nephrolithiasis, migraines, anxiety now presenting for surgical evaluation of RUQ pain associated with a 4.6 x 2.6 x 2.5cm gallbladder fossa fluid collection s/p elective lap pasquale for symptomatic cholelithiasis 1.5 months ago at OSH ([place]). Pt states that she has had persistent RUQ pain with nausea and po intolerance along with intermittent chills and vomiting since surgery. Was seen by PCP and instructed to come to [facility] ED for further evaluation. Review [...] N/A 07/21/2019 Surgeon: Prasanna Vargas MD; Location: [facility] Location TUBAL LIGATION N/A 07/21/2019 Surgeon: Prasanna Vargas MD; Location: [facility] Location Family History:Family [...] skin once every month. 1 mL 3 Hbkppznvyn-Enhnlvlgaxzgk-Ovxe (FIORICET) 50-300-40 mg per capsule Take 1 [...] symptomatic cholelithiasis 1.5 months ago at OSH ([place]).Plan:Admission to [facility] serviceConsult IR for percutaneous drainage of gallbladder [...] pain, nausea, anorexia since lap pasquale at [facility] on 12/01/22 with noted venous [...] Surgery, and Surgical Critical Care In-house Pager: [phone] [id number], Amy1.2.840.735847.1.13.104.2.7.2.708589Eub xtdCvsPI2109-63-74B42:39:26Consult noteTXT1.2.840.125795.1.13.104.2.7.2.18141 9|[id number] for patient vqui05008-9Wyzlwdq noteLNUTCHRISTUS ST. [facility] - [address] StreetUkmjGjdwk[id number] MKMAVWJFCXPYQFMO9312-48-33C19:39:261.2.840 .688972.1.72.3.15|1.2.840.784006.1.13.104. 2.7.2.727879_[id number] [facility] - Health History and Physical Notes Date/Time Note Provider Source 2023-01-12 01:05:04 eYIPvcyB+g+d5Wza6VRQ 1ACe9BARjm97LbciBI7Vow Kghm+MgwXgqrfC/kYSLN5/0511-20-08Q75:05:04F ormatting of this note might be different from the original.01/12/23 1:05 AM Please refer to consult note written by Rodolfo Riggins DO on 01/12/23 for complete H&P.NITESH Gandara-2 Surgery Resident ssociated attestation - Mirella Vergara MD - 01/12/2023 1:47 AM CDT Hzpdf45478-6Vsrgivt and physical oozzLF0348407Qonmzt, Amy1.2.840.114265.1.13.104.2.7.2.031396Oya ezrRinKP2973-87-87V27:47:52History and physical noteTXT1.2.840.692028.1.13.104.2.7.2.96241 9|[id number] for patient uenl18065-0Mmntkyl and physical noteLNUTMB[address] JnkuRxzqstqpnTvmamfcukSNYA0987088552OUOGED JFUCKJUBPSFGOIJL0712-87-74Q69:47:521.2.840 .701565.1.72.3.15|1.2.840.923597.1.13.104. 2.7.2.727879_[id number] [facility] Notes Date/Time Note Provider Source 2023-05-19 12:16:00 zWQ8V60fwVyMYEU36j8Z /VCC/ZAWghKBn KqG7H7nP4/CcXLCx9Q35rrucnVewA7R15 05-06-06T12:16:00 Pt given printed and verbal discharge instructions regarding acute UTI, renal calculi, splenomegaly, encouraged hydration.Prescriptions provided.Discussed ibuprofen and to take with food to avoid GI distress.Discussed antibiotic therapy and to take until all completed unless adverse reaction occurs - if occurs, discontinue medication and follow up with pcp/seek medical attentionPt verbalized understanding of instructions, pt awake alert oriented, resp reg unlabored, skin w/d, color appropriate for race, moves all ext well,pt encouraged to follow up with pcp.Advised to seek medical attention for new/prolonged/worsening of symptoms.No adverse reaction to meds given in ER noted upon discharge.PIV d'cd, dressing to site, catheter in tact.Awake, alert oriented, resp reg unlabored, skin w/d, pt leaving amb with steady gait, in no apparent distress. 80029-5Hnhimucsu department QbwaDX7773-49-11Z03:20:15Emergenc y department NoteTXT1.2.840.645418.1.13.104.2. 7.2.509616|[id number] for patient uxdb26307-3FniyYNAXYHWRRTTEwlwrah ed C-CDA narrative text[address] RyynIjpffqmhuDwoueskybXLCV8828140 888LWSIUQELYQEWXWWJLQKUMA7945-81- 07T12:20:151.2.840.108176.1.72.3. 15|1.2.840.102886.1.13.104.2.7.2. 727879_[id number] [facility] 2023-05-19 08:50:00 4IoMjWGDTLFm5nWoHZLc kFHFN8z23qVDI 0MDD4Fac38jvB8c02josXwEcLNz7/ui20 05-06-06T08:50:00 Patient came in with complaints of epigastric pain that radiates to her left shoulder associated with nausea and vomiting since a couple of weeks now. Patient states that she was worked up in [place] ER 2 weeks ago and found nothing wrong, just referred to a GI doctor but she hasn't seen one because she has no insurance. 40602-2Sqgqwhtxq department Triage gofyTQ6869-41-62D47:01:49[facility] Triage noteTXT1.2.840.700326.1.13.104.2. 7.2.100476|[id number] for patient ajaz21592-0Qoiilmukg department NoteLNNARRATIVEFormatted C-CDA narrative bqcx322488123Yxgdfplm C Heredia RN[address] FemiTmqytjibgGaxsffphwNQAR9359572 710ZMAGSRTUSAOMUZPSVZVQZY7485-98- 07T09:01:491.2.840.796901.1.72.3. 15|1.2.840.238310.1.13.104.2.7.2. 727879_[id number] Syeda Ruiz RN [facility] 2023-01-16 10:56:45 4v9wNJhLImcOorzE1wne fr3lGCMNxow3X KqE07Hac8SzHdiBr13fw+HJdqtI1Bo213 02-02-06T10:56:45 TRANSITIONAL CARE MANAGEMENT ASSESSMENT01/16/2023 Nikko DysonHasfnwo232078RAznkq Nelia Dyson is a 27 year old /White female was admitted on 01/11/[address] She was discharged on 01/15/23 with discharge disposition of HR- Routine Discharge.Admitting Physician: Misty Steele Diagnosis: Postprocedural intraabdominal abscess [T81.43XA]Pt. Verbalized understanding discharge instructions. Plans to f/u with pcp.Linked Episodes Type: Episode: Status: Noted: Resolved: Last update: Updated by: TRANSITION OF CARE tcm Active 01/16/2023 01/16/2023 10:56 AM Marlys Odell LVN Comments: TCM Bnb-aion-qb-face outreach documentation:Discharge AssessmentChart Assessed: 01/16/23TCM Outreach Completed: [...] with the names or descriptions of any hjpr-iwl-twhrcgd or supplements you are currently taking?: YesSuppliesDid [...] or concerns at this time?: NoFuture Appointments: 31736-9Bculdtkxl encounter PcdzRB7472-92-40H59:57:41Telephon e encounter NoteTXT1.2.840.419748.1.13.104.2. 7.2.621212|[id number] for patient froz32839-4AatmVY400706405Mtxnauz ttignacio Odell [address] WxrsDdcxpnugyEkwpwqaszKGAZ5479018 440AVROVLBWMBRPAAVTLOZWQL0564-11- 06T10:57:411.2.840.214868.1.72.3. 15|1.2.840.797475.1.13.104.2.7.2. 727879_[id number] Marlys Odell LVN [facility] 2023-01-15 18:18:34 fCbYlUmbjxv9bxhJYyUh TvxjZAfxQkxGz vtiVEQkvQLPjmruUz/NhWWPMzN2BmAz32 02-02-05T18:18:34 Patient is cleared for discharge. Problem: Infection RiskGoal: Absence of infection01/15/20231817 by Vero Crews RNOutcome: Adequate for discharge01/15/20231817 by Vero Crews RNOutcome: Adequate for discharge01/15/2023 1310 by Vero Crews RNOutcome: Progressing as expected Problem: PainGoal: Control of pain at or below patient's documented comfort goal01/15/20231817 by Vero Crews RNOutcome: Adequate for discharge01/15/2023 181 by Vero Crews RNOutcome: Adequate for discharge01/15/2023 1310 by Vero Crews RNOutcome: Progressing as expectedGoal: Reduction in pain sensation01/15/20231817 by Vero Crews RNOutcome: Adequate for discharge01/15/20231817 by Vero Crews RNOutcome: Adequate for discharge01/15/2023 131 by Vero Cerws RNOutcome: Progressing as expected Problem: Discharge PlanningGoal: Adequate for discharge01/15/20231817 by Vero Crews RNOutcome: Adequate for discharge01/15/20231817 by Vero Crews RNOutcome: Adequate for discharge01/15/2023 131 by Vero Crews RNOutcome: Progressing as expectedGoal: Effective communication01/15/20231817 by Vero Crews RNOutcome: Adequate for discharge01/15/20231817 by Vero Crews RNOutcome: Adequate for discharge01/15/2023 131 by Vero Crews RNOutcome: Progressing as expected 09098-1Bmau of care hmewHY7002-25-93D03:18:58Plan of care noteTXT1.2.840.347172.1.13.104.2. 7.2.840998|[id number] for patient yxia14282-0XcboCANGSOPFTN[address]TX[place] 633IWTCRJJTXMTAQXPPKQHQDM9236-23- 05T18:18:581.2.840.629540.1.72.3. 15|1.2.840.908872.1.13.104.2.7.2. 727879_[id number] [facility] 2023-01-15 15:08:00 OGCsP7ouIbY/I2wRTFb4 bf4I2tpCW0uUL uggQwRotHuU3Kq57URn4JC06INLWUZc62 02-02-055:08:00 Called outpatient pharmacy and spoke to Maggi. [facility] pharmacy will bring patient's medications to her room within 45min to an hour. 96344-7Solqp AxjcKR5471-49-49T20:49:16Nurse NoteTXT1.2.840.178688.1.13.104.2. 7.2.544672|9539014586DJKdhlksdfs for patient qspj59384-6Vjwsb TxofBU424384721Oisdmne R Hanegan RN[address] YkjwZabjbnmftZwotmqbisMSRY4064500 939KZHVCEIRGKZCZZZDCUIQPB9760-55- 05T15:49:161.2.840.699150.1.72.3. 15|1.2.840.004425.1.13.104.2.7.2. 727879_[id number] Vero Crews RN [facility] 2023-01-15 13:11:00 ZnokprruD4r4D8BkJWWZ xhJdqGLhAJlB2 TBzur/VpGC+Ig37RSn/xII4HJyGUmPe78 02-02-053:11:00 Problem: Infection RiskGoal: Absence of infectionOutcome: Progressing as expected Problem: PainGoal: Control of pain at or below patient's documented comfort goalOutcome: Progressing as expectedGoal: Reduction in pain sensationOutcome: Progressing as expected Problem: Discharge PlanningGoal: Adequate for dischargeOutcome: Progressing as expectedGoal: Effective communicationOutcome: Progressing as expected 71199-0Ootk of care ndlrWG8874-42-34V27:11:04Plan of care noteTXT1.2.840.049040.1.13.104.2. 7.2.978421|7125399561IHTgjjgpygo for patient jlal64050-8AewbHATKCRXTRW[address]TXTX[address] 645USPUTJYRWQODTPIGULNQNH5992-53- 05T13:11:041.2.840.351920.1.72.3. 15|1.2.840.427363.1.13.104.2.7.2. 727879_[id number] [facility] 2023-01-15 06:25:22 Z9um4iOf2HEJGpaswORS JNCymGtZ8AV29 7KDdTn6GcqjYwufJEoijgJomnmNZWCn47 02-02-0506:25:22 Problem: Infection RiskGoal: Absence of infectionOutcome: Progressing as expected Problem: PainGoal: Control of pain at or below patient's documented comfort goalOutcome: Progressing as expectedGoal: Reduction in pain sensationOutcome: Progressing as expected Problem: Discharge PlanningGoal: Adequate for dischargeOutcome: Progressing as expectedGoal: Effective communicationOutcome: Progressing as expected 19482-8Mbhy of care ymcbAV1705-02-43P98:25:24Plan of care noteTXT1.2.840.538730.1.13.104.2. 7.2.810505|9561399876ZNBvzpehzfg for patient cucm73738-2DyjfBF046300622Klwsc M Andrews RNUT[address] 945WHVSHFYZRWBITTFDTXHRML6453-18- 05T06:25:241.2.840.888308.1.72.3. 15|1.2.840.280811.1.13.104.2.7.2. 727879_[id number] Katy Means RN [facility] 2023-01-14 09:27:52 buXhs/mpp2L5lH/54kjR xOAu+9CZN44KQ F5BQ9UU5XMz0gs6LJdxw7z1VJTpUXzr51 03-02-04T09:27:52 Problem: Infection RiskGoal: Absence of infectionOutcome: Progressing as expected Problem: PainGoal: Control of pain at or below patient's documented comfort goalOutcome: Progressing as expectedGoal: Reduction in pain sensationOutcome: Progressing as expected Problem: Discharge PlanningGoal: Adequate for dischargeOutcome: Progressing as expectedGoal: Effective communicationOutcome: Progressing as expected 52894-2Lsln of care lyynBC8063-34-98L66:27:55Plan of care noteTXT1.2.840.450045.1.13.104.2. 7.2.536495|6636189583OUMleyjnomi for patient vuwj91892-9CkjxIA073123785Scjf W Martinez RN[address]TXTX[address] 822ULZBLOJNIJORWRABCGDFUF2659-22- 04T09:27:551.2.840.997157.1.72.3. 15|1.2.840.864204.1.13.104.2.7.2. 727879_[id number] Charles Win RN [facility] 2023-01-13 22:20:47 oPSSAIDJ5Jt7pz8/ACpd JWEkX2jDxh8Lb F6QXBHZ/Xm7OLEn76IlYaZsEOD8fSMj91 02-02-03T22:20:47 Notified MD by bonny due to double dose of Tylenol being given. Per MD Brito no more Tylenol to be given for tonight. 57183-6Wqjxb ZchaYX9964-15-85J29:25:15Nurse NoteTXT1.2.840.529279.1.13.104.2. 7.2.645237|9481562443IDTmfrxzpej for patient etvj51964-3FvcbXLMNPOQTDH[address] 623RQGKACEWLMGUXCZGVSEJKA5348-34- 03T22:25:151.2.840.259619.1.72.3. 15|1.2.840.913974.1.13.104.2.7.2. 727879_[id number] [facility] 2023-01-13 21:55:20 Nz4IKPppGN3WGsgsYvF/ R9ObOiEUIUF15 1tK+G79Mks90uZp7wPPaFOk3g8G9JzJ94 02-02-03T21:55:20 Problem: Infection RiskGoal: Absence of infectionOutcome: Progressing as expected Problem: PainGoal: Control of pain at or below patient's documented comfort goalOutcome: Progressing as expectedGoal: Reduction in pain sensationOutcome: Progressing as expected Problem: Discharge PlanningGoal: Adequate for dischargeOutcome: Progressing as expectedGoal: Effective communicationOutcome: Progressing as expected 04496-4Ttwg of care atvlSB6825-63-70B63:55:38Plan of care noteTXT1.2.840.373217.1.13.104.2. 7.2.872079|1966906811DDJvebrlewg for patient lmua81134-1GqglFOMXOKJLVV19 [address]TX[place] 433PUZUBJWDOIFXMKTNJMUNDG3012-57- 03T21:55:381.2.840.635283.1.72.3. 15|1.2.840.666392.1.13.104.2.7.2. 727879_[id number] [facility] 2023-01-13 08:20:43 YOftsdja/YjkfIFyN0E0 8ULsDDchnRJ0t Z+bkUnrAZyfNuIbi3QuvQ/Nv8azfF0091 02-02-03T08:20:43 Problem: Infection RiskGoal: Absence of infectionOutcome: Progressing as expected Problem: PainGoal: Control of pain at or below patient's documented comfort goalOutcome: Progressing as expectedGoal: Reduction in pain sensationOutcome: Progressing as expected Problem: Discharge PlanningGoal: Adequate for dischargeOutcome: Progressing as expectedGoal: Effective communicationOutcome: Progressing as expected 17244-0Zxdm of care zfsrLN3243-16-41K48:20:46Plan of care noteTXT1.2.840.931009.1.13.104.2. 7.2.845971|4512959591CULtsypckbb for patient swyi13486-6XjkcLQGLMBDBBU[address]TX[place] 864LIUTNZTMCVPCONEVYVMIUE3025-00- 03T08:20:461.2.840.591972.1.72.3. 15|1.2.840.504191.1.13.104.2.7.2. 727879_[id number] [facility] 2023-01-12 20:10:08 QwDTFU8IW8qyv3RGrxjQ 5bxqtM/oLtLn3 D19v+8vdcCoK9aXY+OgpeHSwq88mejU00 02-02-02T20:10:08 Problem: Infection RiskGoal: Absence of infectionOutcome: Progressing as expected Problem: PainGoal: Control of pain at or below patient's documented comfort goalOutcome: Progressing as expectedGoal: Reduction in pain sensationOutcome: Progressing as expected Problem: Discharge PlanningGoal: Adequate for dischargeOutcome: Progressing as expectedGoal: Effective communicationOutcome: Progressing as expected 66200-6Mdfz of care gdwyXI9173-06-90P78:10:14Plan of care noteTXT1.2.840.872980.1.13.104.2. 7.2.944841|8718223945CGZrqrroyct for patient kaue08550-5FekcOFDQCHMKND[address]vd[address]on[place]onTXTX[address] 911MJKEUGQEYVZWOBJOVXPSGJ5279-02- 02T20:10:141.2.840.200402.1.72.3. 15|1.2.840.693599.1.13.104.2.7.2. 727879_[id number] [facility] 2023-01-12 09:28:38 jDWO7b5EcVAr53YYML+m OkJN0GgNRNfVu 7qgDZBQ4NhQ7z5NN5UtX6x5/N3el9pG42 02-02-02T09:28:38 Problem: Infection RiskGoal: Absence of infectionOutcome: Progressing as expected Problem: PainGoal: Control of pain at or below patient's documented comfort goalOutcome: Progressing as expectedGoal: Reduction in pain sensationOutcome: Progressing as expected Problem: Discharge PlanningGoal: Adequate for dischargeOutcome: Progressing as expectedGoal: Effective communicationOutcome: Progressing as expected 52626-8Mvbo of care uoerFA8005-33-38E88:28:40Plan of care noteTXT1.2.840.144629.1.13.104.2. 7.2.626965|4904370027AZDqqkdixhl for patient quna61762-0GvtyTWKVXXVQEF[address]TXTX[address] 875LZRHXQXMCEPTKGUISIKDEP3338-94- 02T09:28:401.2.840.182145.1.72.3. 15|1.2.840.349043.1.13.104.2.7.2. 727879_[id number] [facility] 2023-01-12 05:17:00 YDHWyGyX8iEUHzPN+WxE xiM1pw59ta4sp v16SmXKRmCKgPexN20R3ax+amks1gJJ37 02-02-02T05:17:00 Problem: Infection RiskGoal: Absence of infectionOutcome: Progressing as expected Problem: PainGoal: Control of pain at or below patient's documented comfort goalOutcome: Progressing as expectedGoal: Reduction in pain sensationOutcome: Progressing as expected Problem: Discharge PlanningGoal: Adequate for dischargeOutcome: Progressing as expectedGoal: Effective communicationOutcome: Progressing as expected 29289-2Nzwg of care ktizHX7434-54-36U72:17:08Plan of care noteTXT1.2.840.017904.1.13.104.2. 7.2.664726|3509014083CDGtairsjty for patient [address]TX[address] 230LEMBWWRXQUYFDFVPFWBZJE0027-97- 02T05:17:081.2.840.802214.1.72.3. 15|1.2.840.771392.1.13.104.2.7.2. 727879_[id number] [facility] 2023-01-12 01:43:06 k+aH0wIv3/1+CqHTAYxb GQY9syypdKTMt mww2owIXnf6o5pDWtmB1QuGP6D2sATL28 02-02-02T01:43:06 Report to lisy CURRIE on 9C. Pt awaiting transport 39112-6Kbzrawbjx department TuknAK3335-07-13H57:43:18[facility] NoteTXT1.2.840.875361.1.13.104.2. 7.2.906741|6503337768CJEwzbopwya for patient xskm86696-4RxsiBM260210146Anlpa Bakari CURRIE[address] YxzaJrputwvubWyyyjndckJHXQ9083895 889LXCWMHELXLIDKOMLFCDVWD1569-99- 02T01:43:181.2.840.936549.1.72.3. 15|1.2.840.587853.1.13.104.2.7.2. 727879_[id number] Melvin Villegas RN [facility] 2023-01-12 01:10:30 X6Ec05VS0zUHk4OVLeql g0an3WrpqSmr0 v2dfcAB/6cAmcftJr2nabjqNWRgmP6R32 02-02-02T01:10:30 Attempted report, nurse unavailable, left callback number [id number] department VcppBO0266-11-70F40:10:42[facility] NoteTXT1.2.840.913720.1.13.104.2. 7.2.358910|0319745055RCQnmibzmsz for patient ybsm33242-9QttiQLWCODOMOC[address]TX[place] 031JCPUXDPCDQYMKOZSFTYEXI1604-00- 02T01:10:421.2.840.865409.1.72.3. 15|1.2.840.602995.1.13.104.2.7.2. 727879_[id number] [facility] 2023-01-12 00:24:49 D2IRozj5jTk237fDsWE+ zoya/TDic7pR2P a018cbj1IL+Carrera+G4sfaMb6oo7PxDILW24 02-02-02T00:24:49 Surgery at bedside 90856-9Lpbdhsrlt department YxarDW9468-62-23O55:24:56Emergen y department NoteTXT1.2.840.102340.1.13.104.2. 7.2.058811|1078420688JAMwmssbyec for patient hqhx53535-5LnchPWCTUOGFYL19 [address]TX[place] 983KYSJUFZOQXFUACXHYEYZUT5795-18- 02T00:24:561.2.840.083290.1.72.3. 15|1.2.840.061505.1.13.104.2.7.2. 727879_[id number] [facility] 2023-01-11 23:08:11 2G7prUxDXM0NnDTg9GV0 s4uNiBazat/r5 LJQZU5DDfy1wl5xr7rQJWM2A6kbrlNk66 02-02-01T23:08:11 made aware of pt increased pain and nausea 04772-8Epdfzzpqh[address] [place] [address] XmecUJ0802-16-53O56:08:21[facility] NoteTXT1.2.840.835944.1.13.104.2. 7.2.782111|7464414625LJWlhobjxeg for patient rgof71126-0QmzrORIJEEOLLX[address]TX[place] 935EDLLPRHMPIOVSNCUUVYLJA5550-27- 01T23:08:211.2.840.955845.1.72.3. 15|1.2.840.883276.1.13.104.2.7.2. 727879_[id number] [facility] 2023-01-11 22:34:38 LPeDjaolr9HL8msOGjla 7Lv+a2Djhkv4L 6QV0rt2e4lbCdVJWvdMAOGoVP4pLDLU93 02-02-01T22:34:[address], warm blanket given 70004-5Aohnumkqk[address] FebtSE1487-90-69R24:34:49[facility] NoteTXT1.2.840.088256.1.13.104.2. 7.2.371582|[id number] for patient kkri00456-9FvthJAYEOYXRAO19 [id number] 491LBWRNQZFPHUKWENKKPGCRG7700-35- 01T22:34:491.2.840.309071.1.72.3. 15|1.2.840.843500.1.13.104.2.7.2. 727879_[id number] [facility] 2023-01-11 22:18:01 FwnMboZNWoqglw5p0C8L 76IabndSKLH4u J6zilxw+heIlRf6UuyWpasoyy7TLVB242 02-02-01T22:18:[address] scan 7[address]16-3Fkbfdxqpq department UwajMJ3390-93-97P08:18:08[facility] NoteTXT1.2.840.263110.1.13.104.2. 7.2.090504|[id number] for patient xxry11611-1PbkhOSIVLLHPAO[address] 060PLSULUDPUEYDRRJVYYAGSD4917-83- 01T22:18:081.2.840.770376.1.72.3. 15|1.2.840.935845.1.13.104.2.7.2. 727879_[id number] [facility] 2023-01-11 21:30:08 x4t0fpM9iVupEnnVg630 TP/mi58FgYfSs m8F5ZL1ACp+y/LPEKSrXrgcpEliA85N86 02-02-01T21:30:08 Nikko Dyson is a 27 year old female who presents to ER for cc of RUQ LUQ abdominal pain radiating to RLQ, persistent nausea and diarrhea x 2 weeks. Pt had gallbladder removed and a portion of liver removed 1 mo ago. Pt followed up w her PCP, showing elevated liver enzymes, CT scan showing inflamed liver. Denies vomiting, denies blood in stool. 93998-8Jjakstcgg department IwdzML8698-03-31G89:32:39[facility] NoteTXT1.2.840.333033.1.13.104.2. 7.2.826761|[id number] for patient lifc91091-9FznjZRLNRKXXLB[address]TX[address] 215FODLCXKMIMNGJBLDKSHYZK7494-24- 01T21:32:391.2.840.968187.1.72.3. 15|1.2.840.032279.1.13.104.2.7.2. 727879_[id number] [facility] 2023-01-11 21:03:38 9kO5ELU9D70Umqd48vAO d5/1XzTc2eHZy +mc4vUGbTcdatC9HLW+A5D66Vip6wJC11 02-02-01T21:03:38 Nikko Dyson is a 27 year old female here today c/o abdominal pain x 2 days. Pt denies N/V but reports diarrhea. Pt reports "9/10" pain at this time. Pt reports pain travels down right side abdomen. Pt is A&Ox4, NAD Noted. RR even/unlabored. 82307-5Lwggdszlr department Triage gqjpDD2186-52-81P46:05:23Emergen y department Triage noteTXT1.2.840.015610.1.13.104.2. 7.2.905181|[id number] for patient knhn34366-2Xmqkwxtxg department [address] 738PGHWPYGMWSUBLVNIOFVKLW7182-24- 01T21:05:231.2.840.046171.1.72.3. 15|1.2.840.995060.1.13.104.2.7.2. 727879_[id number] [facility] 2023-01-11 20:44:00 gpsEavuGE5yTtrxRh+DF Dptg3rfim57Hb 71Pjp6N3wWtiDDxk4pWkISfP08kcFGE48 02-02-01T20:44:00 [facility] Emergency Department NotePatient Name: Nikko Becerra of : 1995 27 year old femaleTreatment Room: [address] [place] [address] Record Number: [id number] Care Physician: Rahat KhanPatient Escorted by: Family [5]Mode of Arrival: Personal means [1]EMS Treatment Prior to ED Arrival:PURSE FRAMER treatment: None Travel and Exposure Screening:SymptomsDoes patient [...] 1 month ago that was done at [place]. Due to the worsening discomfort patient has, for further evaluation at [facility]. Patient states that during her [...] when she sits up. Patient has discontinued [place] and anxiety medication due to concern for her liver. 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 Location TUBAL LIGATION N/A 07/21/2019 Surgeon: Prasanna Vargas MD; Location: [facility] Location Review of [...] 0 - 220 U/L COMP. METABOLIC PANEL (64398) TOTAL BETA HCG ASSAY EXTRA TUBE ORANGE EXTRA TUBE LAV EKG:If EKG completed, see Procedure Note. Orders and Treatments:Orders Placed This Encounter Procedures CT ABDOMEN PELVIS W CONTRAST POCT TEST URINALYSIS LIPASE COMP. METABOLIC PANEL (00788) TOTAL BHCG (QUANTITATIVE) Orders Placed This Encounter Medications NaCl 0.9% (NS) bolus infusion 1,000 mL morpHINE (4 mg/mL) injection 4 mg maalox:diphenhydrAMINE:lidocaine 2 % viscous 1:1:1 (FIRST-MOUTHWASH BLM) oral suspension 15 mL ondansetron (ZOFRAN (PF)) injection 4 mg First Provider Eval:ED Events Date/Time Event User Comments 01/11/232104 Medical Screening Begins CIERA GARCÍA -- 01/11/232104 First Provider Evaluation CIERA GARCÍA -- No notes of EC Admission [...] mouth every 6 (six) hours as needed. WOPVATGNAH-UMSGODSTZYRSE-AITB (FIORICET) 50-300-40 MG PER CAPSULE Take 1 [...] No medications on file Follow-up:Electronically signed by: Ciera García, 01/12/23 0211 ssociated attestation - Aroldo Siddiqui DO - 01/12/2023 7:17 AM CDT After discussion with Dr. García, I examined this patient. I agree with resident's note as written.The patient had CT findings concerning for a possible post-op abscess in the Gallbladder fossa, post-recent cholecystectomy in [place].General surgery was consulted and admitted the patient for further workup and management. [id number] Emergency department [id number], [id number] .[id number] T07:17:19Physician Emergency department [id number]. [id number] for patient irbu85244-1Xicgggvzx department NoteLN[address] Uf[id number] 1[id number]- 02T07:17:191.2.840.504024.1.72.3. 15|[id number]. [id number] [facility] 2022-12-03 08:57:03 /lOh77///T5pG6Aj0I RTycsfXg6Xe+B pWft1ry14Honw+b/R11ChbLwT7Zluw266 03-12-23T08:57:03 Patient has an appointment 12/12/22.Blayne Silva RN 12/03/2022 8:57 AM 61827-9Xwirylshk encounter MshgWK7307-21-72S09:57:18Telephon e encounter [id number]. [id number] for patient [id number] Collins [address] JciwXjkaqchkcYqijbwbsfECET2245555 3[id number]- 24T08:57:181.2.840.135862.1.72.3. 15|[id number]. [id number] Blayne Silva Formerly [facility]
[2023-05-27] MEDS ORDERED: ONDANSETRON 4 MG/2 ML VIAL ONE (10:52)
[2023-05-27] MEDS ORDERED: FAMOTIDINE 20 MG/2 ML VIAL IV ONE (10:53)
[2023-05-27] MEDS ORDERED: MORPHINE 4 MG/ML SYR ONE (10:53)
[2023-05-27] MEDS ORDERED: NA CHLORIDE 0.9% 1,000 ML ONE ×2 (10:53→14:12)
[2023-05-27] MEDS ORDERED: DIPHENHYDRAMINE 50 MG/ML VIAL ONE (11:13)
[2023-05-27 11:15] LABS: Absolute Lymphocytes (CBC) 2.1 K/uL (0.7-4.9); Hematocrit 41.5 % (36.0-45.0); Lymphocytes % 23.7 % (15.3-44.8); MCV 87.3 fL (80-100); MPV 7.7 fL (7.6-11.3); Platelets 336 thou/uL (152-406); RBC Red Blood Cell Count 4.76 M/uL (3.86-4.86)
[2023-05-27 11:19] LABS: Albumin 3.8 g/dL (3.4-5.0); Bilirubin Total 0.6 mg/dL (0.2-1.0); Potassium 3.6 mEq/L (3.5-5.1); Protein, Total 7.8 g/dL (6.4-8.2)
--- NOTE | 2023-05-27 11:56 | RAD REPORT ---
EXAM DESCRIPTION: CT - Abdomen Pelvis W Contrast - 05/27/2023 11:27 am CLINICAL HISTORY: RLQ PAIN COMPARISON: Abdomen Pelvis W Contrast dated 04/08/2023; Abdomen Pelvis W Contrast dated 03/27/20 23; Abdomen Pelvis W Contrast dated 12/05/2022; Abdomen Pelvis W Contrast dated 12/01/2022 TECHNIQUE: Thin cut axial CT imaging of the abdomen and pelvis was performed following intravenous a dministration of 100 mL Isovue 300. Multiplanar reformats were generated and reviewed. Extravasation of approximately 10 mL noted just above the left antecubital fossa, managed appropriately. All CT scans are performed using dose optimization technique as appropriate and may include automated exposure control or mA/KV adjustment according to patient size. FINDINGS: No suspicious findings in the lung bases. The liver, spleen, adrenal glands, and pancreas show no suspicious findings. Gallbladder was surgical ly removed. Symmetric renal function is seen with no hydronephrosis or suspicious renal mass. Nonobstructing righ t upper pole 2-3 mm calculus. Nonspecific mild perinephric fat stranding bilaterally. No dilated bowel loops or bowel wall thickening. No free air, free fluid or inflammatory stranding. N o hernia, mass or bulky lymphadenopathy. The urinary bladder is without significant finding. No suspicious bony findings. IMPRESSION: Nonobstructing right upper renal pole 2-3 mm calculus. Nonspecific bilateral mild perinephric fat stranding. No other CT findings to suggest ongoing pyelone phritis although it is not entirely excluded. Status post cholecystectomy.
--- NOTE | 2023-05-27 12:41 | ER ---
Nurse's Notes [facility] Name: Natanael Dyson Age: 28 yrs Sex: Female : 1995 Arrival Date: 05/27/2023 Time: 09:53 Bed 17 Private MD: Diagnosis: Nausea with vomiting, unspecified;Acute kidney injury Presentation: 05/27 10:02 Chief complaint: Patient states: RLQ x 3 days ago with nausea/vomiting. Pt also reports aa5 fever up to 102.0* today and reports taking Tylenol. 10:02 Coronavirus screen: fever, vomiting. Ebola Screen: Patient denies travel to an [facility]-affected area in the 21 days before illness onset. Initial Sepsis Screen: Does the patient meet any 2 criteria? HR > 90 bpm. Does the patient have a suspected source of infection? No. Patient's initial sepsis screen is negative. Risk Assessment: Do you want to hurt yourself or someone else? Patient reports no desire to harm self or others. Onset of symptoms was May 2023. 10:02 Acuity: THIERNO 3 aa5 10:02 Method Of Arrival: Ambulatory aa5 SALESPERSON USED CARS: 10:13 LMP 05/13/2023, unknown aa5 Historical: - Allergies: 10:08 Compazine; aa5 10:08 Haldol; aa5 10:08 Reglan; aa5 10:08 Toradol; aa5 - PMHx: 10:08 Anxiety; breast cancer (Ligation of fallopi); depressive disorder; Kidney stone; aa5 - PSHx: 10:08 Cholecystectomy; Ligation of fallopian tube; aa5 - Immunization history:: Adult Immunizations unknown. - Social history:: Smoking status: Patient denies any tobacco usage or history of. - Family history:: not pertinent. Screenin:03 [facility] ED Fall Risk Assessment (Adult) History of falling in the last 3 months, ap3 including since admission No falls in past 3 months (0 pts). Abuse screen: Denies threats or abuse. Nutritional screening: No deficits noted. Tuberculosis screening: No symptoms or risk factors identified. Assessment: 11:03 General: Appears in no apparent distress. Behavior is calm, cooperative. Pain: ap3 Complains of pain in right upper quadrant and right lower quadrant Pain currently is 7 out of 10 on a pain scale. Pain began 2-3 days ago. Neuro: Level of Consciousness is awake, alert, obeys commands, Oriented to person, place, time, situation, Appropriate for age. Cardiovascular: Patient's skin is warm and dry. Respiratory: Airway is patent Respiratory effort is even, unlabored, Respiratory pattern is regular, symmetrical. GI: Bowel sounds present X 4 quads. Abd is soft Reports lower abdominal pain, nausea. 11:12 Reassessment: Entered pts rm to answer call light. Pt states she is itchy at IV site mb9 after medication administration. Hives and erythema noted to left AC. Airway patent, pt denies SOB. ERP notified, new orders at this time. Vital Signs: 10:02 BP 150 / 88; Pulse 98; Resp 18 S; Temp 98.2(O); Pulse Ox 100% on R/A; Weight 63.5 kg aa5 (R); Height 5 ft. 1 in. (R); 11:12 Pulse 95; Resp 18; Pulse Ox 100% on R/A; mb9 14:04 BP 135 / 89; Pulse 91; Resp 18; Pulse Ox 100% on R/A; cm10 16:00 BP 127 / 71; Pulse 96; Resp 18; Pulse Ox 100% on R/A; cm10 10:02 Body Mass Index 26.45 (63.50 kg, 154.94 cm) aa5 ED Course: 09:55 Patient arrived in ED. im 09:55 Edmond Koo MD is Attending Physician. rt 10:02 Arm band placed on. aa5 10:13 Triage completed. aa5 10:28 Ileana Negrete, ROSEY is Primary Nurse. ap3 10:52 Inserted saline lock: 24 gauge in left antecubital area, using aseptic technique. Blood ds4 collected. 11:04 Patient has correct armband on for positive identification. Bed in low position. Call ap3 light in reach. Pulse ox on. NIBP on. 11:28 CT Abd/Pelvis - IV Contrast Only In Process Unspecified. EDMS 11:54 IV discontinued, Pressure dressing applied, IV access blew in CT, IV removed, ice pack ap3 given and pressure dressing applied. IV catheter intact. 12:40 Klaus Buenrostro MD is Hospitalizing Provider. rt 14:03 Inserted saline lock: 22 gauge in left wrist, using aseptic technique. cm10 16:21 Provided Education on: Need for admit. cm10 16:21 No provider procedures requiring assistance completed. Patient admitted, IV remains in cm10 place. Administered Medications: 11:02 Drug: NS 0.9% IV 1000 ml IV at 1 bolus Per protocol; 1000 mL bolus Route: IV; Rate: 1 ap3 bolus; Site: left antecubital; 16:19 Follow up: Response: No adverse reaction; IV Status: Completed infusion; IV Intake: cm10 1000ml 11:02 Drug: Ondansetron IVP 4 mg IVP once; over 2 minutes Route: IVP; Site: left antecubital; ap3 14:03 Follow up: Response: No adverse reaction 10 11:03 Drug: Famotidine IVP 20 mg IVP once; dilute with 10 mL 0.9% NaCl; give over 2 minutes ap3 Route: IVP; Site: left antecubital; 14:03 Follow up: Response: No adverse reaction 10 11:03 Drug: morphine IVP or IV 4 mg IVP once over 4 mins Route: IVP; Infused Over: 4 mins; ap3 Site: left antecubital; 12:29 Follow up: Response: Adverse reaction, Physician notified ap3 11:18 Drug: diphenhydrAMINE IVP 50 mg IVP once Route: IVP; Site: left antecubital; mb9 12:29 Follow up: Response: No adverse reaction ap3 14:29 Drug: morphine IVP or IV 2 mg IVP once over 4 mins Route: IVP; Infused Over: 4 mins; cm10 Site: left wrist; 16:19 Follow up: Response: No adverse reaction [facility] 14:30 Drug: NS 0.9% IV 1000 ml IV at 1 bolus Per protocol; 1000 mL bolus Route: IV; Rate: 1 cm10 bolus; Site: left wrist; 16:20 Follow up: Response: No adverse reaction; IV Status: Completed infusion; IV Intake: cm10 1000ml Medication: 11:04 VIS not applicable for this client. ap3 Intake: 16:19 IV: 1000ml; Total: 1000ml. cm10 16:20 IV: 1000ml; Total: 2000ml. 10 Outcome: 12:40 Decision to Hospitalize by Provider. rt 16:21 Admitted to Med/surg accompanied by tech, via wheelchair, room 214, Report called to boyd Swenson RN 16:21 Condition: good 16:21 Instructed on the need for admit, 16:46 Patient left the ED. cm10 Signatures: Dispatcher [employer] Jaycee Finnegan RN RN aa5 Justin Barbosa ds4 Ileana Negrete RN RN ap3 Jack, Kymberly Kwong, RN RN mb9 Edmond Koo MD MD rt Mendoza, Itzel im Martinez, Clarissa, RN RN cm10
--- NOTE | 2023-05-27 12:41 | EDPHYS ---
Physician Documentation [facility] Name: Natanael Dyson Age: 28 yrs Sex: Female : 1995 Arrival Date: 05/27/2023 Time: 09:53 Bed 17 Private MD: ED Physician Edmond Koo HPI: 05/27 10:26 This 28 yrs old Female presents to ER via Ambulatory with complaints of Abdominal Pain. rt 10:26 Patient with chronic upper abdominal pain presents to the ED with a right lower rt quadrant pain for the past 3 days. Patient states that this pain is different than her typical pain. She has nausea vomiting, p.o. intolerance. Patient states that she was febrile today, did take Tylenol prior to arrival. Denies other acute complaints at this time, symptoms are moderate in severity, nonradiating, no other aggravating or alleviating factors. Of note, she does have an appointment with a lbd teacher in 3 days, was told to come in for further eval.. UTILITY HAND: 10:13 LMP 05/13/2023, unknown aa5 Historical: - Allergies: 10:08 Compazine; aa5 10:08 Haldol; aa5 10:08 Reglan; aa5 10:08 Toradol; aa5 - PMHx: 10:08 Anxiety; breast cancer (Ligation of fallopi); depressive disorder; Kidney stone; aa5 - PSHx: 10:08 Cholecystectomy; Ligation of fallopian tube; aa5 - Immunization history:: Adult Immunizations unknown. - Social history:: Smoking status: Patient denies any tobacco usage or history of. - Family history:: not pertinent. ROS: 10:26 Cardiovascular: Negative for chest pain, palpitations, and edema, Respiratory: Negative rt for shortness of breath, cough, wheezing, and pleuritic chest pain, : Negative for injury, bleeding, discharge, and swelling, MS/Extremity: Negative for injury and deformity, Skin: Negative for injury, rash, and discoloration, Neuro: Negative for headache, weakness, numbness, tingling, and seizure, Psych: Negative for depression, anxiety, suicide ideation, homicidal ideation, and hallucinations, 10:26 Constitutional: Positive for fever, malaise, 10:26 Abdomen/GI: Positive for abdominal pain, nausea and vomiting, Exam: 10:26 Constitutional: This is a well developed, well nourished patient who is awake, alert, rt and in no acute distress. Head/Face: Normocephalic, atraumatic. Chest/axilla: Normal chest wall appearance and motion. Nontender with no deformity. No lesions are appreciated. Cardiovascular: Regular rate and rhythm with a normal S1 and S2. No gallops, murmurs, or rubs. Normal PMI, no JVD. No pulse deficits. Respiratory: Lungs have equal breath sounds bilaterally, clear to auscultation and percussion. No rales, rhonchi or wheezes noted. No increased work of breathing, no retractions or nasal flaring. Skin: Warm, dry with normal turgor. Normal color with no rashes, no lesions, and no evidence of cellulitis. MS/ Extremity: Pulses equal, no cyanosis. Neurovascular intact. Full, normal range of motion. Neuro: Awake and alert, GCS 15, oriented to person, place, time, and situation. Cranial nerves II-XII grossly intact. Motor strength 5/5 in all extremities. Sensory grossly intact. Cerebellar exam normal. Normal gait. Psych: Awake, alert, with orientation to person, place and time. Behavior, mood, and affect are within normal limits. 10:26 Abdomen/GI: Focal tenderness to the right lower quadrant with moderate guarding, no rebound, no abdominal distention, no other focal areas of tenderness, Vital Signs: 10:02 BP 150 / 88; Pulse 98; Resp 18 S; Temp 98.2(O); Pulse Ox 100% on R/A; Weight 63.5 kg aa5 (R); Height 5 ft. 1 in. (R); 11:12 Pulse 95; Resp 18; Pulse Ox 100% on R/A; mb9 14:04 BP 135 / 89; Pulse 91; Resp 18; Pulse Ox 100% on R/A; cm10 16:00 BP 127 / 71; Pulse 96; Resp 18; Pulse Ox 100% on R/A; cm10 10:02 Body Mass Index 26.45 (63.50 kg, 154.94 cm) aa5 MDM: 10:16 Patient medically screened. rt 10:26 ED course: Chart was reviewed, patient has significant number of CT scans. The patient rt has a different pain today, focally in the right lower quadrant with an exam that is consistent with an acute appendicitis. I did discuss with the patient my reluctance to order a CT scan given her lifetime radiation dose, however, I believe that she requires a workup for an appendicitis at this time. I discussed risk benefits with the patient who elects to go ahead with CT scan. 12:41 Differential Diagnosis Appendicitis, bowel obstruction, enteritis, ulcer. Data rt reviewed: vital signs, nurses notes. Consideration of Admission/Observation Patient was admitted/placed on observation. Management of patient was discussed with the following: Hospitalist: Agrees to admit. I considered the following discharge prescriptions or medication management in the emergency department Medications were administered in the Emergency Department. See MAR. Independent interpretation of the following test(s) in the Emergency Department CT Scan: My interpretation is No bowel obstruction seen on interpretation of CT scan images. Counseling: I had a detailed discussion with the patient and/or guardian regarding the historical points, exam findings, and any diagnostic results supporting the discharge/admit diagnosis, lab results, radiology results, the need for further work-up and treatment in the hospital. 05/27 10:22 Order name: CBC with Diff; Complete Time: 11:46 rt 05/27 10:22 Order name: CMP; Complete Time: 11:46 rt 05/27 10:22 Order name: Lipase; Complete Time: 11:46 rt 05/27 10:22 Order name: Test, Urine; Complete Time: 13:47 rt 05/27 10:22 Order name: Urinalysis w/ reflexes; Complete Time: 13:47 rt 05/27 13:07 Order name: Magnesium EDMS 05/27 13:07 Order name: Phosphorus EDMS 05/27 13:07 Order name: T4 Free EDMS 05/27 13:07 Order name: Thyroid Stimulating Hormone EDMS 05/27 13:07 Order name: Urinalysis w/ reflexes EDMS 05/27 13:07 Order name: Basic Metabolic Panel EDMS 05/27 13:07 Order name: Basic Metabolic Panel EDMS 05/27 13:07 Order name: CBC with Automated Diff EDMS 05/27 13:07 Order name: CBC with Automated Diff EDMS 05/27 13:09 Order name: Urine Culture EDMS 05/27 10:22 Order name: CT Abd/Pelvis - IV Contrast Only; Complete Time: 11:57 rt 05/27 10:22 Order name: IV Saline Lock; Complete Time: 10:53 rt 05/27 10:22 Order name: Labs collected and sent; Complete Time: 10:53 rt Administered Medications: 11:02 Drug: NS 0.9% IV 1000 ml IV at 1 bolus Per protocol; 1000 mL bolus Route: IV; Rate: 1 ap3 bolus; Site: left antecubital; 16:19 Follow up: Response: No adverse reaction; IV Status: Completed infusion; IV Intake: cm10 1000ml 11:02 Drug: Ondansetron IVP 4 mg IVP once; over 2 minutes Route: IVP; Site: left antecubital; ap3 14:03 Follow up: Response: No adverse reaction cm10 11:03 Drug: Famotidine IVP 20 mg IVP once; dilute with 10 mL 0.9% NaCl; give over 2 minutes ap3 Route: IVP; Site: left antecubital; 14:03 Follow up: Response: No adverse reaction cm10 11:03 Drug: morphine IVP or IV 4 mg IVP once over 4 mins Route: IVP; Infused Over: 4 mins; ap3 Site: left antecubital; 12:29 Follow up: Response: Adverse reaction, Physician notified ap3 11:18 Drug: diphenhydrAMINE IVP 50 mg IVP once Route: IVP; Site: left antecubital; mb9 12:29 Follow up: Response: No adverse reaction ap3 14:29 Drug: morphine IVP or IV 2 mg IVP once over 4 mins Route: IVP; Infused Over: 4 mins; cm10 Site: left wrist; 16:19 Follow up: Response: No adverse reaction cm10 14:30 Drug: NS 0.9% IV 1000 ml IV at 1 bolus Per protocol; 1000 mL bolus Route: IV; Rate: 1 cm10 bolus; Site: left wrist; 16:20 Follow up: Response: No adverse reaction; IV Status: Completed infusion; IV Intake: cm10 1000ml Disposition Summary: 05/27/23 12:40 Hospitalization Ordered Notes: Hospitalization Status: Observation rt Provider: Klaus Buenrostro rt Location: Telemetry/MedSurg (observation) rt Condition: Stable rt Problem: new rt Symptoms: have improved rt Bed/Room Type: Standard rt Room Assignment: 214(05/27/23 13:43) bd Diagnosis - Nausea with vomiting, unspecified rt - Acute kidney injury rt Forms: - Medication Reconciliation Form rt - SBAR form rt - Leadership Thank You Letter rt Signatures: Dispatcher [employer] Miley Delgado Audri RN RN aa5 Ileana Negrete RN RN ap3 Jack, Kymberly Kwong RN RN mb9 Edmond Koo MD MD rt Fannie Win RN RN cm10 Corrections: (The following items were deleted from the chart) 13:43 12:40 rt bd
[2023-05-27 12:47] LABS: Specific Gravity > 1.030 (1.005-1.030)
[2023-05-27 13:01] LABS: Specific Gravity > 1.030 (1.005-1.030); Urine Bacteria 20-50 /HPF (<20); Urine Bilirubin NEGATIVE (Negative); Urine Blood Negative (Negative); Urine Clarity Extremely Turbid (Clear); Urine Color Light-Yellow (Yellow); Urine Glucose NEGATIVE (Negative); Urine Mucus Slight /HPF (None Seen); Urine Protein 1+ (Negative); Urine Urobilinogen Normal (Normal); Urine pH 5.5 (5.0-7.0)
[2023-05-27] MEDS ORDERED: HYDROCODONE/APAP 10/325 TAB PO PRN (13:01)
[2023-05-27] MEDS ORDERED: ACETAMINOPHEN 325 MG TABLET PO PRN (13:01)
[2023-05-27] MEDS ORDERED: ONDANSETRON 4 MG (ODT) TAB PO PRN (13:05)
--- NOTE | 2023-05-27 13:06 | P.HP ---
Certification for Inpatient Patient admitted to: Observation With expected LOS: <2 Midnights Patient will require the following post-hospital care: None Practitioner: I am a practitioner with admitting privileges, knowledge of patient current condition, hospital course, and medical plan of care. Services: Services provided to patient in accordance with Admission requirements found in Title 42 Section 412.3 of the Code of Federal Regulations Patient History Date of Service: 05/27/23 Reason for admission: Nausea, vomiting and abdominal pain History of Present Illness: Patient is a 28-year-old female with a past medical history significant for depression, anxiety disorder, kidney stones, Bipolar disorder, ADHD, Oppositional defiant disorder who presents with complaint of nausea and vomiting that has been ongoing for the past 3 days. Patient also reports abdominal pain located in the right lower quadrant onset 2 days ago. Patient rated pain as 10/10 in severity and described pain as stabbing in quality. Patient reported associated signs and symptoms of fever, dizziness, fatigue, weakness, right flank pain, dysuria, urinary frequency and melena. Patient denies any other signs and symptoms. Symptoms are aggravated or relieved by nothing. Patient decided to present to the hospital due to worsening symptoms. Allergies ketorolac [From Toradol] Allergy (Verified 12/01/22 06:33) Hives/Rash metoclopramide [From Reglan] Allergy (Verified 12/01/22 06:33) Hives/Rash prochlorperazine [From Compazine] Allergy (Verified 12/01/22 06:33) Hives/Rash Home Medications: ALPRAZolam [Xanax*] 0.5 mg PO Q12HP PRN #30 tab 12/07/22 Amox/Clavulanate [Augmentin 875-125 Tab*] 1 each PO BID #10 tab 12/07/22 Ciprofloxacin HCl [Cipro] 500 mg PO BID #10 tab 03/29/23 Escitalopram Oxalate [Lexapro] 10 mg PO DAILY #30 tab 03/29/23 Pantoprazole [Protonix Tab] 40 mg PO DAILY #30 tab 03/29/23 Potassium Chloride [Klor-Con] 40 meq PO Q6H #4 packet 03/29/23 - Past Medical/Surgical History -: Bipolar Disorder -: Oppositional Defiant Disorder -: ADHD -: Anxiety -: -: tubal ligation -: Lap Choley 12/01/2022 - Social History Smoking Status: Never smoker Alcohol use: No CD- Drugs: No Caffeine use: Yes Place of Residence: Home Review of Systems General: Fever, Weakness, Other (Fatigue) Eyes: Unremarkable ENT: Unremarkable Respiratory: Unremarkable Cardiovascular: Unremarkable Gastrointestinal: Nausea, Vomiting, Abdominal Pain, Melena Genitourinary: Dysuria, Frequency, Other (Right flank pain) Musculoskeletal: Unremarkable Integumentary: Unremarkable Neurological: Weakness, Other (Dizziness) Lymphatics: Unremarkable Physical Examination - Physical Exam General: Alert, In no apparent distress, Oriented x3, Cooperative HEENT: Atraumatic, PERRLA, Mucous membr. moist/pink, EOMI, Sclerae nonicteric Neck: Supple, 2+ carotid pulse no bruit, No LAD, Without JVD or thyroid abnormality Respiratory: Clear to auscultation bilaterally, Normal air movement Cardiovascular: No edema, Regular rate/rhythm, Normal S1 S2 Capillary refill: <2 Seconds Gastrointestinal: Normal bowel sounds, Tenderness Musculoskeletal: No clubbing, No tenderness Integumentary: No rashes, No breakdown, No significant lesion Neurological: Normal gait, Normal speech, Normal strength at 5/5 x4 extr, Normal tone, Normal affect Lymphatics: No axilla or inguinal lymphadenopathy - Studies Laboratory Data (last 24 hrs) 05/27/23 05/27/23 10:49 10:49 WBC 8.80 Hgb 14.2 Hct 41.5 Plt Count 336 Sodium 139 Potassium 3.6 BUN 23 H Creatinine 2.95 H Glucose 99 Total Bilirubin 0.6 AST 17 ALT 26 Alkaline Phosphatase 96 Lipase 17 Assessment and Plan - Plan --Abdominal pain. CT abdomen indicates Nonobstructing right upper renal pole 2-3 mm calculus. Nonspecific bilateral mild perinephric fat stranding. No other CT findings to suggest ongoing pyelonephritis although it is not entirely excluded. Will manage pain with current pain medication regimen. --Nausea and vomiting. Continue IV hydration. Antiemetics on board. --ADA. Likely prerenal secondary to fluid losses. Continue IV hydration. Will continue to monitor renal functions. --Melena. Patient reported dark stools this morning. Hemoglobin at 14.2. Communicated with panel machine operator who recommended outpatient follow-up in the clinic for further workup. Will continue to monitor H&H. Continue Protonix. --Pyelonephritis\UTI POA. Patient placed on antibiotics. Urine cultures pending. --Depression\anxiety disorder bipolar disorder\ADHD\oppositional defiant disorder. Continue home medications. --GERD. Continue Protonix. --DVT prophylaxis with SCDs. Discharge Plan: Home Plan to discharge in: 48 Hours - Advance Directives Does patient have a Living Will: No Does patient have a Durable POA for Healthcare: No - Code Status/Comfort Care Code Status Assessed: Yes Physician Review: Patient Assessed, Agree with Above Assessment and Plan Critical Care: No
[2023-05-27] MEDS ORDERED: MORPHINE 2 MG/ML SYR ONE (14:12)
[2023-05-27 14:37] LABS: Thyroid Stimulating Hormone 2.4 uIU/mL (0.358-3.740)
[2023-05-27 14:38] LABS: Magnesium 2.1 mg/dL (1.6-2.4)
[2023-05-27] MEDS ORDERED: SODIUM CHLORIDE 0.9% 10ML INJ IV PRN (14:44)
[2023-05-27] MEDS: MORPHINE 4 MG/ML SYR IV PRN ×2 (16:05→20:21)
[2023-05-27] MEDS ORDERED: NA CHLORIDE 0.9% 100 ML ONE (16:41)
[2023-05-27] MEDS ORDERED: CEFTRIAXONE 1000 MG/VIAL ONE (16:41)
[2023-05-27] MEDS: CEFTRIAXONE 1,000 MG in NA CHLORIDE 0.9% 50 ML IVPB SCH (16:42)
[2023-05-27] MEDS ORDERED: ENOXAPARIN 30 MG/0.3 ML SQ SCH (17:00)
[2023-05-27 17:20] VITALS: BMI 26.4
[2023-05-27] MEDS: NA CHLORIDE 0.9% 1,000 ML IV SCH (17:36)
[2023-05-27 18:56] LABS: Potassium 4.1 mEq/L (3.5-5.1)
[2023-05-27] MEDS: PANTOPRAZOLE 40 MG INJ IVP SCH (20:05)
[2023-05-27] MEDS: PROMETHAZINE 25 MG TABLET PO PRN (20:05)
[2023-05-28] MEDS: ONDANSETRON 4 MG/2 ML VIAL IV PRN ×2 (00:23→16:23)
[2023-05-28] MEDS: MORPHINE 4 MG/ML SYR IV PRN ×4 (00:23→12:28)
[2023-05-28] MEDS: NA CHLORIDE 0.9% 1,000 ML IV SCH ×3 (01:58→10:00)
[2023-05-28] MEDS ORDERED: LORAZEPAM 0.5 MG TABLET PO ONE (02:30)
[2023-05-28] MEDS: PROMETHAZINE 25 MG TABLET PO PRN (02:44)
[2023-05-28] MEDS ORDERED: MORPHINE 4 MG/ML SYR ONE (04:35)
[2023-05-28 05:14] LABS: Hematocrit 33.8 % (36.0-45.0); Lymphocytes % 24.7 % (15.3-44.8); MPV 8.1 fL (7.6-11.3); Platelets 269 thou/uL (152-406); RBC Red Blood Cell Count 3.88 M/uL (3.86-4.86)
[2023-05-28 05:27] LABS: Potassium 4.2 mEq/L (3.5-5.1)
[2023-05-28] MEDS: CEFTRIAXONE 1,000 MG in NA CHLORIDE 0.9% 50 ML IVPB SCH (08:44)
[2023-05-28] MEDS: PANTOPRAZOLE 40 MG INJ IVP SCH ×2 (08:44→20:16)
[2023-05-28] MEDS ORDERED: PANTOPRAZOLE 40 MG INJ IVP SCH ×2 (09:00)
[2023-05-28] MEDS ORDERED: METHYLPREDNISOLONE 125 MG INJ IV ONE (11:19)
[2023-05-28] MEDS ORDERED: NA CHLORIDE 0.9% 1,000 ML IV ONE (11:19)
--- NOTE | 2023-05-28 12:05 | P.PN ---
Subjective Date of Service: 05/28/23 Chief Complaint: Nausea, vomiting and abdominal pain Subjective: No new changes Patient continues to reports abdominal pain. Patient indicated that she is unable to keep any p.o. intake. Review of Systems General: Weakness, Other (fatigue) Eyes: Unremarkable ( problem) ENT: Unremarkable Respiratory: Unremarkable Cardiovascular: Unremarkable Gastrointestinal: Nausea, Vomiting, Abdominal Pain Genitourinary: Other (Bilateral flank pain) Musculoskeletal: Unremarkable Integumentary: Unremarkable Neurological: Weakness Lymphatics: Unremarkable Physical Examination - Vital Signs Temperature: 96.7 F Blood Pressure: 148/72 Pulse: 56 Respirations: 18 Pulse Ox (%): 100 - Physical Exam General: Alert, Oriented x3, Cooperative, Mild distress HEENT: Atraumatic, PERRLA, EOMI Neck: Supple, JVD not distended Respiratory: Clear to auscultation bilaterally, Normal air movement Cardiovascular: No edema, Regular rate/rhythm, Normal S1 S2 Capillary refill: <2 Seconds Gastrointestinal: Normal bowel sounds, Tenderness Musculoskeletal: No clubbing, No swelling, No tenderness Integumentary: No rashes, No erythema Neurological: Normal speech, Normal tone, Normal affect Lymphatics: No axilla or inguinal lymphadenopathy Assessment And Plan - Plan Interval history. 05/28/2023. Patient continues to complain of abdominal pain. Transvaginal ultrasound ordered to rule out any other possible causes not seen on CT abdomen. Protonix IV frequency increased to twice daily. Patient reported that she is unable to keep any p.o. intake. Patient reports improvement in nausea and vomiting with antiemetics. Kidney functions improving but slowly. Nephrology consulted for further management of ADA. Continue antibiotics for UTI. Urine cultures pending. Will continue to monitor H&H. Continue supportive care. --Abdominal pain. CT abdomen indicates Nonobstructing right upper renal pole 2-3 mm calculus. Nonspecific bilateral mild perinephric fat stranding. No other CT findings to suggest ongoing pyelonephritis although it is not entirely exclu ded. Will manage pain with current pain medication regimen. --Nausea and vomiting. Continue IV hydration. Antiemetics on board. --ADA. Likely prerenal secondary to fluid losses. Continue IV hydration. Will continue to monitor renal functions. --Melena. Patient reported dark stools this morning. Hemoglobin at 14.2. Communicated with boarding kennel or cattery operator who recommended outpatient follow-up in the clinic for further workup. Will continue to monitor H&H. Continue Protonix. --Pyelonephritis\UTI POA. Patient placed on antibiotics. Urine cultures pending. --Depression\anxiety disorder bipolar disorder\ADHD\oppositional defiant disorder. Continue home medications. --GERD. Continue Protonix. --DVT prophylaxis with SCDs. Discharge Plan: Home Plan to discharge in: 48 Hours - Code Status/Comfort Care Code Status Assessed: Yes Physician Review: Patient Assessed, Agree with Above Assessment and Plan Critical Care: No
[2023-05-28] MEDS ORDERED: LABETALOL 20 MG/4ML SYRINGE IV PRN (12:06)
[2023-05-28] MEDS: NYSTATIN 500,000 UNIT/5 ML UDC PO SCH ×3 (12:26→20:16)
[2023-05-28] MEDS ORDERED: HYDROMORPHONE HCL 0.5 MG/0.5 ML INJ IV PRN (15:11)
[2023-05-28] MEDS: FLUCONAZOLE 200mg IVPB 200 MG/100 ML BAG IV SCH (16:23)
--- NOTE | 2023-05-28 16:40 | P.CNS ---
Date of Consult: 05/28/23 Reason for Consult: ADA Requesting Physician: Klaus Buenrostro Chief Complaint: Nausea, vomiting and abdominal pain History of Present Illness: Patient is a 28-year-old female with a past medical history significant for depression, anxiety disorder, kidney stones, Bipolar disorder, ADHD, Oppositional defiant disorder who presents with complaint of nausea and vomiting that has been ongoing for the past 3 days. Patient also reports abdominal pain located in the right lower quadrant onset 2 days ago. Patient rated pain as 10/10 in severity and described pain as stabbing in quality. Patient reported associated signs and symptoms of fever, dizziness, fatigue, weakness, right flank pain, dysuria, urinary frequency and melena. Patient denies any other signs and symptoms. Symptoms are aggravated or relieved by nothing. Patient decided to present to the hospital due to worsening symptoms. smitha 10:26 This 28 yrs old Female presents to ER via Ambulatory with complaints of Abdominal Pain. rt 10:26 Patient with chronic upper abdominal pain presents to the ED with a right lower rt quadrant pain for the past 3 days. Patient states that this pain is different than her typical pain. She has nausea vomiting, p.o. intolerance. Patient states that she was febrile today, did take Tylenol prior to arrival. Denies other acute complaints at this time, symptoms are moderate in severity, nonradiating, no other aggravating or alleviating factors. Of note, she does have an appointment with a hand tool lapper in 3 days, was told to come in for further eval.. She reports 2 Advil times 2 doses prior to admission. She denies difficulty with her bladder. Allergies ketorolac [From Toradol] Allergy (Verified 12/01/22 06:33) Hives/Rash metoclopramide [From Reglan] Allergy (Verified 12/01/22 06:33) Hives/Rash prochlorperazine [From Compazine] Allergy (Verified 12/01/22 06:33) Hives/Rash Home Medications: NK [No Home Meds] 05/27/23 - Past Medical/Surgical History -: Bipolar Disorder -: Oppositional Defiant Disorder -: ADHD -: Anxiety -: Nephrolithiasis -: Hx ADA (Dr. Bear/ Dr. Harris) -: -: tubal ligation -: Lap Choley 12/01/2022 - Social History Smoking Status: Unknown if ever smoked Alcohol use: No CD- Drugs: No Caffeine use: Yes Place of Residence: Home Review of Systems 10-point ROS is otherwise unremarkable General: Malaise Musculoskeletal: Back Pain Physical Examination Temp Pulse Resp BP Pulse Ox 97.4 F 55 14 164/91 H 100 05/28/23 16:00 05/28/23 16:00 05/28/23 16:00 05/28/23 16:00 05/28/23 16:00 General: In no apparent distress, Oriented x3, Cooperative HEENT: Atraumatic Neck: Supple Respiratory: Clear to auscultation bilaterally, Normal air movement Cardiovascular: Regular rate/rhythm Gastrointestinal: Non-distended, No guarding, Tenderness Musculoskeletal: No clubbing, No contractures Integumentary: No rashes, No cyanosis Neurological: Normal speech Laboratory Data (last 24 hrs) 05/28/23 05/28/23 05/27/23 04:53 04:53 18:26 WBC 8.20 Hgb 11.5 L D Hct 33.8 L Plt Count 269 Sodium 141 144 D Potassium 4.2 4.1 D BUN 18 22 H Creatinine 2.75 H 2.99 H Glucose 84 97 Imagings Data: darrenrice EXAM DESCRIPTION: CT - Abdomen Pelvis W Contrast - 05/27/2023 11:27 am CLINICAL HISTORY: RLQ PAIN COMPARISON: Abdomen Pelvis W Contrast dated 04/08/2023; Abdomen Pelvis W Contrast dated 03/27/2023; Abdomen Pelvis W Contrast dated 12/05/2022; Abdomen Pelvis W Contrast dated 12/01/2022 TECHNIQUE: Thin cut axial CT imaging of the abdomen and pelvis was performed following intravenous administration of 100 mL Isovue 300. Multiplanar reformats were generated and reviewed. Extravasation of approximately 10 mL noted just above the left antecubital fossa, managed appropriately. All CT scans are performed using dose optimization technique as appropriate and may include automated exposure control or mA/KV adjustment according to patient size. FINDINGS: No suspicious findings in the lung bases. The liver, spleen, adrenal glands, and pancreas show no suspicious findings. Gallbladder was surgically removed. Symmetric renal function is seen with no hydronephrosis or suspicious renal mass. Nonobstructing right upper pole 2-3 mm calculus. Nonspecific mild perinephric fat stranding bilaterally. No dilated bowel loops or bowel wall thickening. No free air, free fluid or inflammatory stranding. No hernia, mass or bulky lymphadenopathy. The urinary bladder is without significant finding. No suspicious bony findings. IMPRESSION: Nonobstructing right upper renal pole 2-3 mm calculus. Nonspecific bilateral mild perinephric fat stranding. No other CT findings to suggest ongoing pyelonephritis although it is not entirely excluded. Status post cholecystectomy. Conclusions/Impression: Stage III ADA likely due to hypovolemia complicated by NSAIDs -No NSAIDs -Change IVF to 1/2NS Metabolic Acidosis -Change IVF to 1/2NS Nephrolithiasis -Aggressive hydration HTN -Hydralazine prn Anemia in chronic illness -Monitor H&H Acute cystitis with hematuria Pyelonephritis? -Continue abx -Follow up culture Hospitalist and ER notes reviewed Thank you kindly for the consultation
--- NOTE | 2023-05-28 16:43 | RAD REPORT ---
EXAM DESCRIPTION: US - Transvaginal Study Probe - 05/28/2023 1:52 pm CLINICAL HISTORY: Abddominal pain COMPARISON: Pelvis Complete dated 02/17/2022 TECHNIQUE: Sonographic grayscale and color flow images of the pelvis were obtained. FINDINGS: The uterus is normal in size, shape and echotexture. The uterus measures 9.2 cm in length. Few nabothian cysts seen at the cervix. The endometrial stripe measures 9 mm, within limits of normal, correlate with menstrual phase. Both ovaries are normal in size, shape and echotexture. The right ovary measures 3.7 x 2.4 x 1.7 cm. The left ovary measures 2.8 x 2.0 x 2.5 cm. Bilateral small follicles, with no ovarian or parovaria n lesions. No adnexal masses. Normal Doppler blood flow was demonstrated to both ovaries. Small to moderate amount of simple fluid in the cul-de-sac. IMPRESSION: Small to moderate amount of fluid in the cul-de-sac. This is nonspecific and could be ph ysiologic. No other uterine or adnexal significant abnormalities.
[2023-05-28] MEDS ORDERED: HYDRALAZINE HCL 20 MG/ML VIAL IV PRN (16:45)
[2023-05-28] MEDS ORDERED: NACHLORIDE 0.45% 1,000 ML IV SCH (17:00)
[2023-05-28 17:16] LABS: Potassium 3.8 mEq/L (3.5-5.1)
[2023-05-28] MEDS: DOCUSATE NA 100 MG CAP PO SCH (21:00)
[2023-05-28] MEDS: Ringers Lactate 1,000 ML IV SCH (21:13)
[2023-05-29 00:02] LABS: Specific Gravity 1.006 (1.005-1.030); Urine Bacteria None Seen /HPF (<20); Urine Bilirubin NEGATIVE (Negative); Urine Blood Negative (Negative); Urine Clarity Clear (Clear); Urine Color Colorless (Yellow); Urine Glucose NEGATIVE (Negative); Urine Mucus Slight /HPF (None Seen); Urine Protein NEGATIVE (Negative); Urine RBC <5 /HPF (None Seen); Urine Urobilinogen Normal (Normal); Urine pH 5.5 (5.0-7.0)
[2023-05-29 00:18] LABS: UR MICROALBUMIN 1.5 mg/dL (< 1.9); UR PROTEIN 5.4 mg/dL (<11.9); Urine Protein/Creatinine Ratio 0.16 ratio (<0.15)
[2023-05-29] MEDS: Ringers Lactate 1,000 ML IV SCH ×3 (03:36→17:00)
[2023-05-29] MEDS ORDERED: TRAMADOL HCL 50 MG TAB PO ONE (05:58)
--- NOTE | 2023-05-29 06:54 | P.PN ---
Date of Service: 05/29/23 Vital Signs Temp Pulse Resp BP Pulse Ox 96.9 F 42 L 16 184/98 H 100 05/29/23 03:50 05/29/23 03:50 05/29/23 03:50 05/29/23 03:50 05/29/23 03:50 Medications Acetaminophen (Acetaminophen 325 Mg Tablet) 650 mg PO Q6H PRN PRN Reason: TEMP > 100' F Docusate Sodium (Docusate Na 100 Mg Cap) 100 mg PO BID [facility] Last Admin: 05/28/23 21:00 Dose: Not Given Ergocalciferol (Drisdol (Vitamin D=Ergocalciferol) 18220 Unit Cap) 50,000 unit PO Q48H [facility] Stop: 05/31/23 09:01 Hydralazine HCl (Hydralazine Hcl 20 Mg/Ml Vial) 10 mg IV Q4HP PRN PRN Reason: FOR SBP>160 OR DBP>100 MMHG Hydromorphone HCl (Hydromorphone Hcl 0.5 Mg/0.5 Ml Inj) 0.5 mg IV Q4H PRN PRN Reason: Pain scale 8-10 (Severe) Last Admin: 05/28/23 16:23 Dose: 0.5 mg Ceftriaxone Sodium 1,000 mg/ (Sodium Chloride) 50 mls @ 100 mls/hr IVPB DAILY [facility]; Protocol Last Admin: 05/28/23 08:44 Dose: 50 mls Fluconazole (Diflucan 200 Mg/100 Ml Ivpb (Premix)) 200 mg in 100 mls @ 100 mls/hr IV Q24H [facility]; Protocol Last Admin: 05/28/23 16:23 Dose: 100 mls Lactated Ringer's (Lactated Ringers) 1,000 mls @ 150 mls/hr IV .Q6H40M [facility] Last Admin: 05/29/23 03:36 Dose: 1,000 mls Nystatin (Nystatin 500,000 Unit/5 Ml Udc) 500,000 unit PO QID [facility] Last Admin: 05/28/23 20:16 Dose: 500,000 unit Ondansetron HCl (Ondansetron 4 Mg/2 Ml Vial) 4 mg IV Q6H PRN PRN Reason: NAUSEA / VOMITING Last Admin: 05/28/23 16:23 Dose: 4 mg Pantoprazole Sodium (Pantoprazole 40 Mg Inj) 40 mg IVP BID [facility]IMMY; Protocol Last Admin: 05/28/23 20:16 Dose: 40 mg Promethazine HCl (Promethazine 25 Mg Tablet) 25 mg PO Q6H PRN PRN Reason: NAUSEA / VOMITING Last Admin: 05/28/23 02:44 Dose: 25 mg Sodium Chloride (Sodium Chloride 0.9% 10ml Inj) 10 ml IV UD PRN PRN Reason: Diluant Microbiology Results 05/27/23 12:29 Clean Catch Urine [place] Count - Preliminary No growth. 05/27/23 12:29 Clean Catch Urine - Preliminary No growth. Assessment/ Plan: Nephrology No dyspnea No chest pain No acute events overnight Vitals, medications, blood work and imaging reviewed in the chart General: In no apparent distress, Oriented x3, Cooperative HEENT: Atraumatic Neck: Supple Respiratory: Clear to auscultation bilaterally, Normal air movement Cardiovascular: Regular rate/rhythm Gastrointestinal: Non-distended, No guarding, Tenderness Musculoskeletal: No clubbing, No contractures Integumentary: No rashes, No cyanosis Neurological: Normal speech Laboratory Data (last 24 hrs) 05/28/23 05/28/23 05/27/23 04:53 04:53 18:26 WBC 8.20 Hgb 11.5 L D Hct 33.8 L Plt Count 269 Sodium 141 144 D Potassium 4.2 4.1 D BUN 18 22 H Creatinine 2.75 H 2.99 H Glucose 84 97 Imagings Data: darrenrice EXAM DESCRIPTION: CT - Abdomen Pelvis W Contrast - 05/27/2023 11:27 am CLINICAL HISTORY: RLQ PAIN COMPARISON: Abdomen Pelvis W Contrast dated 04/08/2023; Abdomen Pelvis W Contrast dated 03/27/2023; Abdomen Pelvis W Contrast dated 12/05/2022; Abdomen Pelvis W Contrast dated 12/01/2022 TECHNIQUE: Thin cut axial CT imaging of the abdomen and pelvis was performed following intravenous administration of 100 mL Isovue 300. Multiplanar reformats were generated and reviewed. Extravasation of approximately 10 mL noted just above the left antecubital fossa, managed appropriately. All CT scans are performed using dose optimization technique as appropriate and may include automated exposure control or mA/KV adjustment according to patient size. FINDINGS: No suspicious findings in the lung bases. The liver, spleen, adrenal glands, and pancreas show no suspicious findings. Gallbladder was surgically removed. Symmetric renal function is seen with no hydronephrosis or suspicious renal mass. Nonobstructing right upper pole 2-3 mm calculus. Nonspecific mild perinephric fat stranding bilaterally. No dilated bowel loops or bowel wall thickening. No free air, free fluid or inflammatory stranding. No hernia, mass or bulky lymphadenopathy. The urinary bladder is without significant finding. No suspicious bony findings. IMPRESSION: Nonobstructing right upper renal pole 2-3 mm calculus. Nonspecific bilateral mild perinephric fat stranding. No other CT findings to suggest ongoing pyelonephritis although it is not entirely excluded. Status post cholecystectomy. Conclusions/Impression: Stage III ADA likely due to hypovolemia complicated by NSAIDs Proteinuria -No NSAIDs -Continue IVF Metabolic Acidosis -Continue IVF Nephrolithiasis -Aggressive hydration HTN -Hydralazine prn Anemia in chronic illness -Monitor H&H Acute cystitis with hematuria Pyelonephritis? -Continue abx -Follow up culture Hospitalist note reviewed
[2023-05-29] MEDS: CEFTRIAXONE 1,000 MG in NA CHLORIDE 0.9% 50 ML IVPB SCH (08:28)
[2023-05-29] MEDS: NYSTATIN 500,000 UNIT/5 ML UDC PO SCH ×3 (08:28→17:54)
[2023-05-29] MEDS: DOCUSATE NA 100 MG CAP PO SCH (08:29)
[2023-05-29] MEDS: PANTOPRAZOLE 40 MG INJ IVP SCH (08:29)
[2023-05-29] MEDS ORDERED: DRISDOL (VITAMIN D=ERGOCALCIFEROL) 50000 UNIT CAP PO SCH (09:00)
[2023-05-29] MEDS ORDERED: PROMETHAZINE INJ 25 MG/ML AMP IV PRN (11:15)
[2023-05-29] MEDS: FLUCONAZOLE 200mg IVPB 200 MG/100 ML BAG IV SCH (13:18)
[2023-05-29 17:23] VITALS: O2SAT 96
[2023-05-29 17:35] VITALS: BP 159/91; TEMP 97.5
[2023-05-29 18:13] LABS: Uric Acid 6.2 mg/dL (2.6-6.0)
[2023-05-29 18:15] LABS: Potassium 4.9 mEq/L (3.5-5.1)
[2023-05-29] MEDS ORDERED: NA CHLORIDE 0.9% 500 ML IV ONE (18:30)
--- NOTE | 2023-05-29 18:39 | P.PN ---
Subjective Date of Service: 05/29/23 Chief Complaint: Nausea, vomiting and abdominal pain Subjective: Improving Patient continues to reports abdominal pain. Patient reported improvement in nausea. No episodes of vomiting reported Review of Systems General: Weakness Eyes: Unremarkable ENT: Unremarkable Respiratory: Unremarkable Cardiovascular: Unremarkable Gastrointestinal: Nausea, Abdominal Pain Genitourinary: Unremarkable Musculoskeletal: Unremarkable Integumentary: Unremarkable Neurological: Weakness Lymphatics: Unremarkable Physical Examination - Vital Signs Temperature: 97.5 F Blood Pressure: 159/91 Pulse: 52 Respirations: 18 Pulse Ox (%): 99 - Physical Exam General: Alert, In no apparent distress, Oriented x3, Cooperative HEENT: Atraumatic, PERRLA, EOMI Neck: Supple, JVD not distended Respiratory: Clear to auscultation bilaterally, Normal air movement Cardiovascular: Normal S1 S2, Irregular heart rate/rhythm Capillary refill: <2 Seconds Gastrointestinal: Normal bowel sounds, Tenderness Musculoskeletal: No clubbing, No swelling, No tenderness Integumentary: No rashes Neurological: Normal speech, Normal tone, Normal affect Lymphatics: No axilla or inguinal lymphadenopathy - Studies Microbiology Data (last 24 hrs): 05/27/23 12:29 Clean Catch Urine [place] Count - Final BETWEEN 10,000 & 100,000 CFU/ML 05/27/23 12:29 Clean Catch Urine - Final MIXED MARLON. Assessment And Plan - Plan Interval history. 05/29/2023 Patient seen at bedside. Patient continues to complain of abdominal pain and nausea. Patient denies any episode of vomiting. Transvaginal ultrasound unrem arkable for any acute abnormality. Cardiology consulted for bradycardia. Echocardiogram pending to assess cardiac structures and functions. Patient placed on Phenergan for nausea. Diet advanced to full liquid diet. Renal functions improving with IV hydration. Further management per french folding machine operator. Will await further recommendation from mortgage consultant. Continue supportive care. 05/28/2023. Patient continues to complain of abdominal pain. Transvaginal ultrasound ordered to rule out any other possible causes not seen on CT abdomen. Protonix IV frequency increased to twice daily. Patient reported that she is unable to keep any p.o. intake. Patient reports improvement in nausea and vomiting with antiemetics. Kidney functions improving but slowly. Nephrology consulted for further management of ADA. Continue antibiotics for UTI. Urine cultures pending. Will continue to monitor H&H. Continue supportive care. --Abdominal pain. CT abdomen indicates Nonobstructing right upper renal pole 2-3 mm calculus. Nonspecific bilateral mild perinephric fat stranding. No other CT findings to suggest ongoing pyelonephritis although it is not entirely excluded. Will manage pain with current pain medication regimen. --Nausea and vomiting. Continue IV hydration. Antiemetics on board. --ADA. Likely prerenal secondary to fluid losses. Continue IV hydration. Will continue to monitor renal functions. --Melena. Patient reported dark stools this morning. Hemoglobin at 14.2. Communicated with software project engineer who recommended outpatient follow-up in the clinic for further workup. Will continue to monitor H&H. Continue Protonix. --Pyelonephritis\UTI POA. Patient placed on antibiotics. Urine cultures pending. --Depression\anxiety disorder bipolar disorder\ADHD\oppositional defiant disorder. Continue home medications. --GERD. Continue Protonix. --DVT prophylaxis with SCDs. Discharge Plan: Home Plan to discharge in: 48 Hours - Code Status/Comfort Care Code Status Assessed: Yes Physician Review: Patient Assessed, Agree with Above Assessment and Plan Critical Care: No
--- NOTE | 2023-05-29 19:45 | CON ---
Date of Consultation: 05/29/2023 Reason For Consultation: Bradycardia. History Of Present Illness: This is a 28-year-old female, history of anxiety disorder, presented to the hospital after episodes of nausea, vomiting, cannot hold anything down, found to be in acute job l failure. Apparently, her heart rate drops to the 40s and hence I was consulted. The patient denie s having any dizziness or syncopal episode, and whenever she gets up and walks, her heart rate picks up normally. Past Medical History: As outlined above in the HPI. Medications: Refer reconciliation sheet for detailed list. Allergies: SHE IS ALLERGIC TO METOCLOPRAMIDE, PROCHLORPERAZINE. Family History: No premature coronary artery disease or cancer. Social History: She does not smoke or drink. Does not use any drugs. Review of Systems: All systems reviewed and are negative except as mentioned in HPI. Physical Examination: Vital Signs: Reviewed. Head and Neck: Pupils are equal, reactive to light. Intact eye movements. No JVD. No cervical lym phadenopathy. Neck: Supple. Thyroid is not enlarged. Lungs: Clear to auscultation bilaterally. No rhonchi, rales, or crackles. No accessory muscle use. Heart: Regular rate and rhythm. No extra sounds. Abdomen: Soft, nontender. Bowel sounds positive. No organomegaly. No masses or hernia. No rigidi ty or rebound. Extremities: No edema, clubbing, cyanosis. Intact pulses. Skin: No rash. Neurologic: Alert, awake, oriented x3. No acute focal deficits appreciated. Lymph Nodes: No cervical or axillary lymphadenopathy. Investigations: Labs were reviewed. Assessment And Plan: 1.Sinus bradycardia. She is asymptomatic and when she moves around heart rate picks up very well. Continue to monitor on telemetry. Obtain an echo. Likely no intervention will be needed. She appar ently received labetalol multiple times overnight, which could be the cause for her heart rate to be in the low 50s. Recommend monitoring and echocardiogram. 2.Acute renal failure due to dehydration and should improve with IV fluids. Re-evaluate BUN and cre atinine tomorrow. SR/MODL Voice ID: [id number] Report ID: [id number]
[2023-05-29] MEDS ORDERED: NACHLORIDE 0.45% 1,000 ML IV SCH (20:00)
--- NOTE | 2023-06-03 17:14 | EKG ---
Test Date: 2023-05-29 Test Time: 04:55:32 Quality Project Manager: LISBETH MEASUREMENT RESULTS: Intervals: Rate: 43 IL: 114 QRSD: 86 QT: 492 QTc: [address] [place]: P: 68 IL: 114 QRS: 77 T: 57 INTERPRETIVE STATEMENTS: Marked sinus bradycardia with sinus arrhythmia Abnormal ECG Compared to ECG 05/15/2023 10:54:28 Sinus rhythm no longer present Myocardial infarct finding no longer present Electronically Signed On 06-03-23 16:58:16 LOG ROLLER by Antoni Nixon
== END 2023-05-29 19:45 | disposition left against medical advice (07) | DRG 683 ==
LOC: ER 09:53 → ERHOLD 13:09 → 2ND 16:34 → OBSVTOIN 05-28 12:02
PROVIDERS: ADMIT Hospitalist; ATTEND Hospitalist
DX: N17.9 Acute kidney failure, unspecified (principal); E87.20 Acidosis, unspecified; K92.1 Melena; N12 Tubulo-interstitial nephritis, not specified as acute or chronic; F90.9 Attention-deficit hyperactivity disorder, unspecified type; F41.9 Anxiety disorder, unspecified; F31.9 Bipolar disorder, unspecified; F91.3 Oppositional defiant disorder; D63.8 Anemia in other chronic diseases classified elsewhere; I10 Essential (primary) hypertension; E86.0 Dehydration; N20.0 Calculus of kidney; K21.9 Gastro-esophageal reflux disease without esophagitis; T39.395A Adverse effect of other nonsteroidal anti-inflammatory drugs [NSAID], initial encounter; R00.1 Bradycardia, unspecified; Z88.5 Allergy status to narcotic agent; Z85.3 Personal history of malignant neoplasm of breast; Z88.8 Allergy status to other drugs, medicaments and biological substances; Z90.49 Acquired absence of other specified parts of digestive tract; Z98.51 Tubal ligation status; Z79.899 Other long term (current) drug therapy
CPT/HCPCS: 36415; 74177; 76830; 80048; 80053; 81001; 81025; 82043; 82550; 82570; 83690; 83735; 84100; 84145; 84156; 84439; 84443; 84550; 85025; 87086; 87088; 93005; 99285; C9113; G0378; J0696; J1170; J1200; J1450; J2270; J2405; J2930; J7030; J7120; Q0162; Q0169; Q9967

== ENCOUNTER 2023-06-12 06:16 | Observation (INO) | payer OTHER ==
--- OUTSIDE RECORDS SUMMARY | 2023-06-12 06:36 | XMS REPORT | Continuity of Care Document ---
Author Name Unknown Address [address] [facility] [address] [place] [address] [facility] llcect Address [address] [facility] [address] [place] [address] Care Team Providers Care Test Evaluator Name Role Phone RAHAT KHAN Primary Care Physician Unava ilable TOD SELLERS Attending Clinician Unavailab Prasanna Styles MD Attending Clinician [phone] CHILO Attending Clinician Unavailable Marlys Odell LVN Attending Clinician [phone] OLIVER STEELE Attending Clinician Unavailable Aroldo Siddiqui DO Attending Clinician +[phone] Mirella Vergara MD Attending Clinician [phone] Oliver Steele MD Attending Clinician [phone] PRASANNA VARGAS Attending Clinician Unavailable MANJU NEWELL Attending Clinician UnavailZion Morse DO Attending Clinician [phone] Manju Giraldo Attending Clinician + [phone] LIAN GREENE Attending Clinician Unavailable LIAN GREENE Attending Clinician Unavailable Palak Marrufo LVN Attending Clinician UnavailVIJAY Hammond Attending Clinician Unavailable REJI DÍAZ Attending Clinician Unavailable Carina FELIX, Gurjit Attending Clinician +[phone] CELINA FINNEY Attending Clinician Bridget jesse Serra MD, Rad Cuello Attending Clinician [phone] KASSANDRA PUGH Attending Clinician Unavailable KENNEDY WHITLEY Attending Clinician Unavailable Liset DIVISION TRAFFIC SUPERINTENDENT, Cynleonid Attending Clinician [phone] Doctor Unassigned, [place] Attending Clinician U CARI Garcia Attending Clinician Unavailab lisandro Kaur DIVISION TRAFFIC SUPERINTENDENT, Cari Farmer Attending Clinician + [phone] Unknown, Attending Attending Clinician Unavailab le OMAGHOMI, OMAYEMI Attending Clinician Unavailabl e Omaghomi DIVISION TRAFFIC SUPERINTENDENT, Omayemi Attending Clinician [phone] BENNETT MILLER Attending Clinician Unavailable KARON NORTON Attending Clinician Unavailable Norton DIVISION TRAFFIC SUPERINTENDENT, Karon Attending Clinician [phone] ZION BRIDGES Attending Clinician Unavailable Darrion Wyatt MD Attending Clinician [phone] OLAMIDE GARVIN Attending Clinician Unavailable Onesimo POSADAS, Olamide Mosqueda Attending Clinician [phone] KELLIE DUNCAN Attending Clinician Unavailable Kellie Duncan MD Attending Clinician + [phone] Reji Díaz MD Attending Clinician +[phone] ANNA GOULD Attending Clinician Unavailab Anna Guerrero DO Attending Clinician +[phone] ANGELICA VIVEROS Attending Clinician Unavailable Felice DIVISION TRAFFIC SUPERINTENDENT, Angelica Attending Clinician + [phone] DARRION WYATT Attending Clinician Unavail able DARRION WYATT Attending Clinician Unavail able Juan HENDRICKS, Vijay Attending Clinician [phone] MAGGIE HAMILTON Attending Clinician Unavailab Maggie Luna DO Attending Clinician [phone] Kendal Zamudio LVN Attending Clinician Unarush Bradford MD, Ade Chen Attending Clinician +[phone] Ross Anand Attending Clinician UnaCRICKET Oropeza Attending Clinician Unavail able [facility] Attending Clinician Un available Mitchell FELIX, Ileana Attending Clinician [phone] ILEANA MEDRANO Attending Clinician Unavailable FLACO BOYD Attending Clinician Unavailabl BERNARDO Fitzpatrick Attending Clinician Unavailable Jayy Kennedy MD Attending Clinician [phone] Bernardo Levy MD Attending Clinician [phone] MAURA SAMAYOA Attending Clinician Unavailravindra Perez DIVISION TRAFFIC SUPERINTENDENT, Larry Yanes Attending Clinician [phone] Maura Samayoa MD Attending Clinician + [phone] HUMBERTO OCHOA Attending Clinician Unavailable Humberto Ochoa MD Attending Clinician +[phone] TETO CARNES Attending Clinician Unavailable Sukhjinder MCCRACKEN, Teto Attending Clinician [phone] ADE BRADFORD Attending Clinician Unavailab ROMULO Santos Attending Clinician Kate [facility] Cricket Lopez Attending Clinician + Kaycee MÉNDEZ Attending Clinician Unavailable Kaycee Soares Attending Clinician +[phone] Leslie Santacruz RN Attending Clinician Unavailable Flaco Katz Attending Clinician +[phone] CELINA MIXON Attending Clinician Unavailravindra Flynn, Filippo [facility] Attending Clinician Unavailable Melia Rodriguez MA Attending Clinician UnavailCelina Salguero MD Attending Clinician +[phone] DANIA PENNINGTON Attending Clinician UnavailDaniel eD Santiago MD Attending Clinician + [phone] Harsh Charles DO Attending Clinician +[phone] Dania Pennington MD Attending Clinician [phone] Hallie Wilkinson RN Attending Clinician UnavailAdán Perez Attending Clinician [phone] ADÁN KIM Attending Clinician Unavailable Lab, Ang - Db Attending Clinician Unavailable PETRA RENO Attending Clinician Unavailable Jayy Diaz MD Attending Clinician [phone] JAYY DIAZ Attending Clinician Unavailable CLAUDETTE EVANS Attending Clinician Unavaila Skylar Padron Attending Clinician [phone] SKYLAR GROVES Attending Clinician Unavailable Cristina FELIX, Claudette Cannon Attending Clinician [phone] JE ARANA Attending Clinician Unavailable Only, Ang Db Test Attending Clinician UnavailThony Cook Attending Clinician [phone] THONY JOHNSON Attending Clinician Unavailable EDER FLETCHER Attending Clinician Unavailable PINO HOFF Attending Clinician Unavailable ADITYA MEEKS Attending Clinician Unavaila ADITYA Trammell Attending Clinician Unavaila AMELIA Murcia Attending Clinician Unavailable RAD SERRA Attending Clinician Unavaila KAYLEY Sims Attending Clinician Unavailable Venkat CURRIE, Kassandra Dailey Attending Clinician Unavaila Karin Hoffman Attending Clinician +[phone] Alissa Rosales Attending Clinician +[phone] Anna Kim MD Attending Clinician +[phone] PREET SHAY Attending Clinician Unavailable NI DISLA Attending Clinician Unavailable OSITO HITCHCOCK Attending Clinician Unavailable RODRIGUEZ HOFF Attending Clinician Un available ROSALES SHAY Attending Clinician Unavailable Osito Hitchcock MD Attending Clinician Unavailable Eder Fletcher MD Attending Clinician [phone] MARICRUZ DELUNA Attending Clinician Unavailable SARAHI AVILA Attending Clinician Unavailable ROSANA HUBER Admitting Clinician Unavail able PRASANNA VARGAS Admitting Clinician Unavailable TOD SELLERS Admitting Clinician Unavailab lisandro WOO Admitting Clinician Unavailable OLIVER STEELE Admitting Clinician Unavailable Person Oliver FELIX Admitting Clinician [phone] ZION BRIDGES Admitting Clinician Unavailable ANNA GOULD [...] Expirati on Date Source [facility] [id number] 2019 00:00:00 CRISTY NAJERA [id number] 2023 00:00:00 Problems Condition Name Condition Details Condition Category Status Onset Date Resolution Date Last Treatment Date Treating Clinician Comments Source Postproced ural intraabdom inal abscess Postproced ural intraabdom inal abscess Disease Active 9- 00:00: 00 [facility] Abdominal pain, unspecifie d abdominal location Abdominal pain, unspecifie d abdominal location Disease Active 9- 00:00: 00 [facility] Influenza vaccine needed Influenza vaccine needed Disease Active 2021-05 0-18 00:00: 00 [facility] Myalgia Myalgia Disease Active 2021-05 0-18 00:00: 00 [facility] Acute cough Acute cough Disease Active 2021-05 0-18 00:00: 00 [facility] Hx of extrinsic asthma Hx of extrinsic asthma Disease Active 2021-05 0-18 00:00: 00 [facility] Breast pain in female Breast pain in female Disease Active 8-07 00:00: 00 [facility] Anxiety disorder, unspecifie d type Anxiety disorder, unspecifie d type Disease Active 8-07 00:00: 00 [facility] Generalize d anxiety disorder Generalize d anxiety disorder Disease Active 4-20 00:00: 00 [facility] Nephrolith iasis Nephrolith iasis Disease Active 4-20 00:00: 00 [facility] Paresthesi a of upper limb Paresthesi a of upper limb Disease Active 4-20 00:00: 00 [facility] Burning with urination Burning with urination Disease Active 4-04 00:00: 00 [facility] Acute pain of right shoulder Acute pain of right shoulder Disease Active 4-04 00:00: 00 [facility] Acute pain of right shoulder Acute pain [...] 05-29 00:00: 00 Tolerates promethaz ine [facility] PROCHLOR PERAZINE DRUG INGREDI Active Med Hives 05-29 00:00: 00 [facility] Latex Propensi ty to adverse reaction s Active Rash 2019-05 00:00: 00 [facility] LATEX DRUG INGREDI Active Low Rash 2019-05 00:00: 00 [facility] Metoclop ramide Hcl Propensi ty to adverse reaction s to drug Active Anxiety 07-11 00:00: 00 Patient says she gets figity, angry and mean [facility] METOCLOP RAMIDE HCL DRUG INGREDI Active Low Anxiety 07-11 00:00: 00 [facility] Family History Family Member Diagnosis Comments Start Date Stop Date Sourc e Natural brother Asthma [facility] Natural father Diabetes [facility] Maternal grandfather Diabetes [facility] Maternal grandfather Heart [facility] Maternal grandfather Neurological [facility] Maternal grandmother Breast Cancer [facility] Maternal grandmother Cancer [facility] Maternal grandmother Heart [facility] Maternal grandmother Neurological [facility] Maternal grandmother Ovarian Cancer [facility] Natural mother Cancer Unive [facility] Natural [facility] Natural mother [facility] Natural [facility] Paternal grandmother Cancer [facility] Paternal grandmother [facility] Paternal grandmother Ovarian [facility] Natural sister Ast[facility] Social History Social Habit Start Date Stop Date Quantity Comments Source History SDOH Alcohol Std Drinks [facility] History SDOH Alcohol Binge [facility] History SDOH Alcohol Comment [facility] Gender identity [facility] Tobacco use and exposure 2023-01-12 00:00:00 2023-01-12 00:00:00 Smokeless tobacco non-user [facility] Alcohol intake 2023-01-12 00:00:00 2023-01-12 00:00:00 Ex-drinker (finding) [facility] Exposure to SARS-CoV-2 (event) 2022-08-26 00:00:00 2022-09-05 09:28:[address] [facility] History of Social function 2021-07-17 00:00:00 2021-07-17 00:00:00 [facility] History SDOH Alcohol Frequency 2019-02-06 00:00:00 2019-02-06 00:00:[address] [facility] Sex Assigned At 1995 00:00:00 1995 00:00:00 [facility] Smoking Status Start Date Stop Date [...] 05-19 15:50: 00 05-19 16:15 :00 No [id number] 80mL 80 mL, Intravenou s, ONCE, 1 dose, On 05/19/23 at 1015, Routine [facility] dicyclomine (BENTYL) tablet 20 mg 05-19 15:45: 00 05-19 16:09 :00 No 20mg 20 mg, Oral, ONCE, 1 dose, On 05/19/23 at 0945, [facility] ondansetron (ZOFRAN (PF)) injection 4 mg 05-19 15:15: 00 05-19 15:50 :00 No 4mg 4 mg, Slow IV Push, ONCE, 1 dose, On 05/19/23 at 0915, [facility] maalox:diph enhydrAMINE :lidocaine 2 % [...] ONCE, 1 dose, On 05/19/23 at 0915, [facility] ondansetron 4 mg disintegrat ing tablet 05-19 00:00: 00 Yes [id number] 4mg Take 1 tablet by mouth every 8 (eight) hours as needed for Nausea and Vomiting (N/V). [facility] sucralfate 1 gram tablet 05-19 00:00: 00 06-19 05:59 :00 Yes [id number] 1g Take 1 tablet by mouth before meals and at bedtime for 30 days. [facility] pantoprazol e 40 mg EC tablet 05-19 00:00: 00 06-19 05:59 :00 Yes [id number] 40mg Take 1 tablet by mouth in the morning for 30 days. [facility] cefdinir 300 mg capsule 05-19 00:00: 00 05-27 05:59 :00 Yes [id number] 300mg Take 1 capsule by mouth every [...] 4 mg tablet 01-15 00:00: 00 Yes [id number] 4mg Take 1 tablet by mouth every 8 (eight) hours as needed for Nausea and Vomiting (N/V). [facility] ondansetron 4 mg tablet 01-15 00:00: 00 Yes [id number] 4mg Take 1 tablet by mouth every 8 (eight) hours as needed for Nausea and Vomiting (N/V). [facility] ondansetron 4 mg tablet 01-15 00:00: 00 Yes [id number] 4mg Take 1 tablet by mouth every 8 (eight) hours as needed for Nausea and Vomiting (N/V). [facility] ondansetron 4 mg tablet 01-15 00:00: 00 Yes [id number] 4mg Take 1 tablet by mouth every 8 (eight) hours as needed for Nausea and Vomiting (N/V). [facility] HYDROcodone -acetaminop hen 5-325 mg tablet 01-15 00:00: 00 01-23 04:59 :00 No [id number] 1{tbl} Take 1 tablet by mouth every 4 (four) hours as needed for Pain (scale 4-6) for up to 7 days. Indication s: [facility] HYDROcodone -acetaminop hen 5-325 mg tablet 01-15 00:00: 00 01-23 04:59 :00 No [id number] 1{tbl} Take 1 tablet by mouth every 4 (four) hours as needed for Pain (scale 4-6) for up to 7 days. Indication s: acute pain [facility] morpHINE (2 mg/mL) injection 2 mg 01-14 16:11: 23 01-15 11:49 :59 No 2mg 2 mg, Slow IV Push, Q4HPRN, Starting on Sat01/14/23 at 1111, Until Sat01/15/23 at 0649, Routine, Pain (scale 7-10) [facility] methocarbam oL (ROBAXIN) tablet 500 mg 01-14 13:00: 00 Yes 500mg 500 mg, Oral, QID, First dose on Sat01/14/23 at 0800, Until Discontinu ed, Routine [facility] celecoxib (CELEBREX) capsule 100 mg 01-14 13:00: 00 Yes 100mg 100 mg, Oral, BID MEALS, First dose on Sat01/14/23 at 0800, Until Discontinu ed, Routine [facility] gabapentin (NEURONTIN) capsule 300 mg 01-14 01:30: 00 Yes 300mg 300 mg, Oral, TID, First dose on Sat01/13/23 at 2030, Until Discontinu ed, Routine [facility] acetaminoph en (TYLENOL) tablet 1,000 mg 01-14 01:30: 00 Yes 1000mg 1,000 mg, Oral, Q8H, First dose (after last modificati on) on Sat01/13/23 at 2030, Until Discontinu ed, Routine [facility] scopolamine transdermal (TRANSDERM- SCOP) patch 1.5 mg 01-13 00:30: 00 Yes 1.5mg 1.5 mg, Topical, Administer over 72 Hours, Q72H, First dose on Sat01/12/23 at 1930, Until Discontinu ed, Routine [facility] enoxaparin (LOVENOX) injection 40 mg 01-12 22:00: 00 Yes 40mg 40 mg, Subcutaneo us, DAILY, First dose on Sat01/12/23 at 1700, Until Discontinu ed, Routine [facility] FENTanyl PF (SUBLIMAZE (PF)) injection 100 mcg 01-12 20:30: 00 01-12 20:30 :00 No [id number] 100ug 100 mcg, Slow IV Push, ONCE, 1 dose, On 01/12/23 at 1530, Routine [facility] proMETHazin e (PHENERGAN) 25 mg in [...] at 0900, Until Discontinu ed, Routine [facility] KCL (KLOR-CON M20) tablet 40 mEq 01-12 09:30: 00 01-12 09:25 :00 No 40meq 40 mEq, Oral, ONCE, 1 dose, On 01/12/23 at 0430, Routine [facility] diphenhydrA MINE (BENADRYL) tablet 25 mg 01-12 08:31: 43 Yes 25mg 25 mg, Oral, QHSPRN, Starting on 01/12/23 at 0331, Until Discontinu ed, Routine, Itching, Sleep [facility] lactated ringers IV infusion 1,000 mL 01-12 08:15: 00 01-15 11:48 :29 No 1000mL at 50 mL/hr, 1,000 mL, IV Infusion, CONTINUOUS , Starting on 01/12/23 at 0315, Until 01/15/23 at 0648, Routine [facility] piperacilli n-tazobacta m (ZOSYN) 3.375 g in NaCl 0.9% (NS) 100 mL MINI-BAG 01-12 06:45: 00 01-12 08:43 :00 No 3.375g 3.375 g, IV Piggyback, ONCE, 1 dose, On 01/12/23 at 0145, Administer over 30 Minutes, 100 mL
Reas on for Anti-Infec tive: Documented Infection< br>Documen renata Infection Site: Abdominal< br>Duratio n of Therapy: 7 days [facility] lactated ringers IV infusion 1,000 mL 01-12 06:00: 00 01-12 08:13 :38 No 1000mL at 100 mL/hr, 1,000 mL, IV Infusion, CONTINUOUS , Starting on 01/12/23 at 0100, Until 01/12/23 at 0313, Routine [facility] morpHINE (4 mg/mL) injection 4 mg 01-12 05:49: 22 01-14 05:48 :22 No 4mg 4 mg, Slow IV Push, Q4HPRN, Starting on 01/12/23 at 0049, Until 01/14/23 at 0048, Routine, Pain (scale 7-10) [facility] HYDROcodone -acetaminop hen (NORCO 5) 5-325 mg tablet 1 tablet 01-12 05:49: 18 Yes 1{tbl} 1 tablet, Oral, Q4HPRN, Starting on 01/12/23 at 0049, Until Discontinu ed, Routine, Pain (scale 4-6) [facility] ondansetron (ZOFRAN (PF)) injection 4 mg 01-12 05:49: 11 01-15 17:31 :12 No 4mg 4 mg, Slow IV Push, Q6HPRN, Starting on 01/12/23 at 0049, Until 01/15/23 at 1231, Routine, Nausea and Vomiting (N/V) [facility] ondansetron (ZOFRAN (PF)) injection 4 mg [...] 01-12 03:33: 00 01-12 03:25 :00 No [id number] 80mL 80 mL, Intravenou s, ONCE, 1 dose, On Sat01/11/23 at 2245, Routine [facility] maalox:diph enhydrAMINE :lidocaine 2 % viscous 1:1:1 (FIRST-MOUT HWASH BLM) oral suspension 15 mL 01-12 03:30: 00 01-12 03:07 :00 No 15mL 15 mL, Oral, ONCE, 1 dose, On Sat01/11/23 at 2230, [facility] morpHINE (4 mg/mL) injection 4 mg 01-12 03:30: 00 01-12 03:05 :00 No 4mg 4 mg, Slow IV Push, ONCE, 1 dose, On Sat01/11/23 at 2230, [facility] NaCl 0.9% (NS) bolus infusion 1,000 mL 01-12 03:30: 00 01-12 03:04 :00 No 1000mL at 999 mL/hr, 1,000 mL, IV Infusion, ONCE, 1 dose, On Sat01/11/23 at 2230, [facility] ondansetron (ZOFRAN (PF)) injection 4 mg 01-12 03:00: 00 01-12 03:05 :00 No 4mg 4 mg, Slow IV Push, ONCE, 1 dose, On Sat01/11/23 at 2200, [facility] ibuprofen (IBU) tablet 600 mg 11-21 22:15: 00 11-21 21:44 :00 No 600mg 600 mg, Oral, ONCE, 1 dose, On Sat11/21/22 at 1715, [facility] butalbital- acetaminoph en-caff (ESGIC) 50-325-40 mg tablet 1 tablet 11-21 21:30: 00 11-21 21:39 :00 No 1{tbl} 1 tablet, Oral, ONCE, 1 dose, On Sat11/21/22 at 1630, [facility] ciprofloxac in HCl 500 mg [...] 1 tablet by mouth in the morning. [facility] meloxicam 15 mg tablet 2022-0 - 00:00: 00 Yes 15mg Take 1 tablet by mouth in the morning. [facility] meloxicam 15 mg tablet 2022-0 - 00:00: 00 Yes 15mg Take 1 tablet by mouth in the morning. [facility] mg tablet 2022-0 09-18 00:00: 00 Yes 15mg Take 1 tablet by mouth in the morning. [facility]am 15 mg tablet 2022-0 09-18 00:00: [...] 1 tablet by mouth in the morning. [facility] verapamil SR 120 mg ER tablet 2022-0 [...] 1 tablet by mouth in the morning. [facility] ver[facility] SR 120 mg ER tablet 2022-0 09-17 00:00: 00 Yes 120mg Take 1 tablet by mouth in the morning. [facility] ver[facility] SR 120 mg ER tablet 2022-0 09-17 00:00: 00 Yes 120mg Take 1 tablet by mouth in the morning. [facility] ver[facility] SR 120 mg ER tablet 3-0 -08 00:00: 00 Yes 120mg Take 1 tablet by mouth in the morning. [facility] ver[facility] SR 120 mg ER tablet 2022-0 [...] BEDTIME NEEDED FOR SLEEP AND ANXIETY [facility] OLANZapine 10 mg tablet 2022-0 27 00:00: 00 Yes 10mg Take 1 tablet by mouth in the morning. [facility] cloNIDine 0.1 mg tablet 2022-0 27 00:00: 00 Yes TAKE 1-2 TABLETS BY MOUTH AT BEDTIME NEEDED FOR SLEEP AND ANXIETY [facility] OLANZapine 10 mg tablet 3-0 27 00:00: 00 Yes 10mg Take 1 tablet by mouth in the morning. [facility] cloNIDine 0.1 mg tablet 2022-0 27 00:00: 00 Yes TAKE 1-2 TABLETS BY MOUTH AT BEDTIME NEEDED FOR SLEEP AND ANXIETY [facility] OLANZapine 10 mg tablet 3-0 27 00:00: 00 Yes 10mg Take 1 tablet by mouth in the morning. [facility] cloNIDine 0.1 mg tablet 3-0 27 00:00: 00 Yes TAKE 1-2 TABLETS BY MOUTH AT BEDTIME NEEDED FOR SLEEP AND ANXIETY [facility] OLANZapine 10 mg tablet 3-0 27 00:00: 00 Yes 10mg Take 1 tablet by mouth in the morning. [facility] cloNIDine 0.1 mg tablet 3-0 27 00:00: 00 Yes TAKE 1-2 TABLETS BY MOUTH AT BEDTIME NEEDED FOR SLEEP AND ANXIETY [facility] OLANZapine 10 mg tablet 3-0 27 00:00: [...] 25 mg tablet 09-05 00:00: 00 Yes [id number] 25mg Take 1 tablet by mouth in the morning and 1 tablet in the evening. Take with meals. [facility] losartan 50 mg tablet 09-05 00:00: 00 Yes [id number] 50mg Take 1 tablet by mouth in the morning and 1 tablet in the evening. [facility] carvediloL 25 mg tablet 09-05 00:00: 00 Yes [id number] 25mg Take 1 tablet by mouth in the morning and 1 tablet in the evening. Take with meals. [facility] losartan 50 mg tablet 09-05 00:00: 00 Yes [id number] 50mg Take 1 tablet by mouth in the morning and 1 tablet in the evening. [facility] carvediloL 25 mg tablet 09-05 00:00: 00 Yes [id number] 25mg Take 1 tablet by mouth in the morning and 1 tablet in the evening. Take with meals. [facility] losartan 50 mg tablet 09-05 00:00: 00 Yes [id number] 50mg Take 1 tablet by mouth in the morning and 1 tablet in the evening. [facility] carvediloL 25 mg tablet 2022-0 09-05 00:00: 00 Yes [id number] 25mg Take 1 tablet by mouth in the morning and 1 tablet in the evening. Take with meals. [facility] losartan 50 mg tablet 0 09-05 00:00: 00 Yes [id number] 50mg Take 1 tablet by mouth in the morning and 1 tablet in the evening. [facility] carvediloL 25 mg tablet 3-0 09-05 00:00: 00 Yes [id number] 25mg Take 1 tablet by mouth in the morning and 1 tablet in the evening. Take with meals. [facility] losartan 50 mg tablet 3-0 09-05 00:00: 00 Yes [id number] 50mg Take 1 tablet by mouth in the morning and 1 tablet in the evening. [facility] carvediloL 25 mg tablet 3-0 09-05 00:00: 00 Yes [id number] 25mg Take 1 tablet by mouth in the morning and 1 tablet in the evening. Take with meals. [facility] losartan 50 mg tablet 3-0 09-05 00:00: 00 Yes [id number] 50mg Take 1 tablet by mouth in the morning and 1 tablet in the evening. [facility] carvediloL 25 mg tablet 3-0 09-05 00:00: 00 Yes [id number] 25mg Take 1 tablet by mouth in the morning and 1 tablet in the evening. Take with meals. [facility] losartan 50 mg tablet 3-0 09-05 00:00: 00 Yes [id number] 50mg Take 1 tablet by mouth in the morning and 1 tablet in the evening. [facility] carvediloL 25 mg tablet 3-0 09-05 00:00: 00 Yes [id number] 25mg Take 1 tablet by mouth in the morning and 1 tablet in the evening. Take with meals. [facility] losartan 50 mg tablet 3-0 09-05 00:00: 00 Yes [id number] 50mg Take 1 tablet by mouth in the morning and 1 tablet in the evening. [facility] carvediloL 25 mg tablet 3-0 26 00:00: 00 Yes [id number] 25mg Take 1 tablet by mouth in the morning and 1 tablet in the evening. Take with meals. [facility] losartan 50 mg tablet 3-0 26 00:00: 00 Yes [id number] 50mg Take 1 tablet by mouth in the morning and 1 tablet in the evening. [facility] carvediloL 25 mg tablet 3-0 26 00:00: 00 Yes [id number] 25mg Take 1 tablet by mouth in the morning and 1 tablet in the evening. Take with meals. [facility] losartan 50 mg tablet 3-0 26 00:00: 00 Yes [id number] 50mg Take 1 tablet by mouth in the morning and 1 tablet in the evening. [facility] carvediloL 25 mg tablet 3-0 26 00:00: 00 Yes [id number] 25mg Take 1 tablet by mouth in the morning and 1 tablet in the evening. Take with meals. [facility] losartan 50 mg tablet 3-0 26 00:00: 00 Yes [id number] 50mg Take 1 tablet by mouth in the morning and 1 tablet in the evening. [facility] carvediloL 25 mg tablet 3-0 26 00:00: 00 Yes [id number] 25mg Take 1 tablet by mouth in the morning and 1 tablet in the evening. Take with meals. [facility] losartan 50 mg tablet 3-0 26 00:00: 00 Yes [id number] 50mg Take 1 tablet by mouth in the morning and 1 tablet in the evening. [facility] carvediloL 25 mg tablet 3-0 26 00:00: 00 Yes [id number] 25mg Take 1 tablet by mouth in the morning and 1 tablet in the evening. Take with meals. [facility] losartan 50 mg tablet 3-0 26 00:00: 00 Yes [id number] 50mg Take 1 tablet by mouth in the morning and 1 tablet in the evening. [facility] carvediloL 25 mg tablet 3-0 26 00:00: 00 Yes [id number] 25mg Take 1 tablet by mouth in the morning and 1 tablet in the evening. Take with meals. [facility] losartan 50 mg tablet 3-0 -26 00:00: 00 Yes [id number] 50mg Take 1 tablet by mouth in the morning and 1 tablet in the evening. [facility] carvediloL 25 mg tablet 3-0 4-26 00:00: 00 Yes [id number] 25mg Take 1 tablet by mouth in the morning and 1 tablet in the evening. Take with meals. [facility] losartan 50 mg tablet 3-0 4-26 00:00: 00 Yes [id number] 50mg Take 1 tablet by mouth in [...] enhydrAMINE :lidocaine 2 % viscous 1:1:1 ([facility]) oral suspension 15 mL 08-01 00:45: 00 [...] ONCE, 1 dose, [facility] 20 mg 08-01 00:15: 00 08-01 00:46 :00 No 20mg 20 mg, Slow IV Push, ONCE, 1 dose, On Sat07/31/22 at 1914, [facility] ondansetron 4 mg disintegrat ing tablet 07-31 00:00: 00 Yes [id number] 4mg Take 1 tablet by mouth every 8 (eight) hours as needed for Nausea and Vomiting (N/V). [facility] sucralfate 1 gram tablet 07-31 00:00: 00 Yes [id number] 1g Take 1 tablet by mouth before meals and at bedtime. [facility] ondansetron 4 mg disintegrat ing tablet 3-0 3-21 00:00: 00 Yes [id number] 4mg Take 1 tablet by mouth every 8 (eight) hours as needed for Nausea and Vomiting (N/V). [facility] sucralfate 1 gram tablet 3-0 3-21 00:00: 00 Yes [id number] 1g Take 1 tablet by mouth before meals and at bedtime. [facility] ondansetron 4 mg disintegrat ing tablet 3-0 3-21 00:00: 00 Yes [id number] 4mg Take 1 tablet by mouth every 8 (eight) hours as needed for Nausea and Vomiting (N/V). [facility] sucralfate 1 gram tablet 3-0 -21 00:00: 00 Yes [id number] 1g Take 1 tablet by mouth before meals and at bedtime. [facility] ondansetron 4 mg disintegrat ing tablet 3-0 - 00:00: 00 Yes [id number] 4mg Take 1 tablet by mouth every 8 (eight) hours as needed for Nausea and Vomiting (N/V). [facility] sucralfate 1 gram tablet 3-0 321 00:00: 00 Yes [id number] 1g Take 1 tablet by mouth before meals and at bedtime. [facility] ondansetron 4 mg disintegrat ing tablet 3-0 -21 00:00: 00 Yes [id number] 4mg Take 1 tablet by mouth every 8 (eight) hours as needed for Nausea and Vomiting (N/V). [facility] sucralfate 1 gram tablet 3-0 3-21 00:00: 00 Yes [id number] 1g Take 1 tablet by mouth before meals and at bedtime. [facility] ondansetron 4 mg disintegrat ing tablet 3-0 3-21 00:00: 00 Yes [id number] 4mg Take 1 tablet by mouth every 8 (eight) hours as needed for Nausea and Vomiting (N/V). [facility] sucralfate 1 gram tablet 3-0 3-21 00:00: 00 Yes [id number] 1g Take 1 tablet by mouth before meals and at bedtime. [facility] ondansetron 4 mg disintegrat ing tablet 3-0 3-21 00:00: 00 Yes [id number] 4mg Take 1 tablet by mouth every 8 (eight) hours as needed for Nausea and Vomiting (N/V). [facility] sucralfate 1 gram tablet 3-0 3-21 00:00: 00 Yes [id number] 1g Take 1 tablet by mouth before meals and at bedtime. [facility] ondansetron 4 mg disintegrat ing tablet 3-0 3-21 00:00: 00 Yes [id number] 4mg Take 1 tablet by mouth every 8 (eight) hours as needed for Nausea and Vomiting (N/V). [facility] sucralfate 1 gram tablet 2022-0 3-21 00:00: 00 Yes [id number] 1g Take 1 tablet by mouth before meals and at bedtime. [facility] ondansetron 4 mg disintegrat ing tablet 2022-0 3-21 00:00: 00 Yes [id number] 4mg Take 1 tablet by mouth every 8 (eight) hours as needed for Nausea and Vomiting (N/V). [facility] sucralfate 1 gram tablet 3-0 3-21 00:00: 00 Yes [id number] 1g Take 1 tablet by mouth before meals and at bedtime. [facility] ondansetron 4 mg disintegrat ing tablet 3-0 3-21 00:00: 00 Yes [id number] 4mg Take 1 tablet by mouth every 8 (eight) hours as needed for Nausea and Vomiting (N/V). [facility] sucralfate 1 gram tablet 3-0 3-21 00:00: 00 Yes [id number] 1g Take 1 tablet by mouth before meals and at bedtime. [facility] ondansetron 4 mg disintegrat ing tablet 3-0 3-21 00:00: 00 Yes [id number] 4mg Take 1 tablet by mouth every 8 (eight) hours as needed for Nausea and Vomiting (N/V). [facility] sucralfate 1 gram tablet 3-0 3-21 00:00: 00 Yes [id number] 1g Take 1 tablet by mouth before meals and at bedtime. [facility] ondansetron 4 mg disintegrat ing tablet 2022-0 3-21 00:00: 00 Yes [id number] 4mg Take 1 tablet by mouth every 8 (eight) hours as needed for Nausea and Vomiting (N/V). [facility] sucralfate 1 gram tablet 2022-0 3-21 00:00: 00 Yes [id number] 1g Take 1 tablet by mouth before meals and at bedtime. [facility] ondansetron 4 mg disintegrat ing tablet 2022-0 3-21 00:00: 00 Yes [id number] 4mg Take 1 tablet by mouth every 8 (eight) hours as needed for Nausea and Vomiting (N/V). [facility] sucralfate 1 gram tablet 2022-0 3- 00:00: 00 Yes [id number] 1g Take 1 tablet by mouth before meals and at bedtime. [facility] ondansetron 4 mg disintegrat ing tablet 2022-0 - 00:00: 00 Yes [id number] 4mg Take 1 tablet by mouth every 8 (eight) hours as needed for Nausea and Vomiting (N/V). [facility] sucralfate 1 gram tablet 2022-0 3-21 00:00: 00 Yes [id number] 1g Take 1 tablet by mouth before meals and at bedtime. [facility] ondansetron 4 mg disintegrat ing tablet 2022-0 3-21 00:00: 00 Yes [id number] 4mg Take 1 tablet by mouth every 8 (eight) hours as needed for Nausea and Vomiting (N/V). [facility] sucralfate 1 gram tablet 3-0 3-21 00:00: 00 Yes [id number] 1g Take 1 tablet by mouth before meals and at bedtime. [facility] ondansetron 4 mg disintegrat ing tablet 3-0 3-21 00:00: 00 Yes [id number] 4mg Take 1 tablet by mouth every 8 (eight) hours as needed for Nausea and Vomiting (N/V). [facility] sucralfate 1 gram tablet 0 07-31 00:00: 00 Yes [id number] 1g Take 1 tablet by mouth before meals and at bedtime. [facility] ondansetron 4 mg disintegrat ing tablet 0 07-31 00:00: 00 Yes [id number] 4mg Take 1 tablet by mouth every 8 (eight) hours as needed for Nausea and Vomiting (N/V). [facility] sucralfate 1 gram tablet 0 07-31 00:00: 00 Yes [id number] 1g Take 1 tablet by mouth before meals and at bedtime. [facility] ondansetron 4 mg disintegrat ing tablet 0 07-31 00:00: 00 Yes [id number] 4mg Take 1 tablet by mouth every 8 (eight) hours as needed for Nausea and Vomiting (N/V). [facility] sucralfate 1 gram tablet 0 07-31 00:00: 00 Yes [id number] 1g Take 1 tablet by mouth before meals and at bedtime. [facility] ondansetron 4 mg disintegrat ing tablet 07-31 00:00: 00 Yes [id number] 4mg Take 1 tablet by mouth every 8 (eight) hours as needed for Nausea and Vomiting (N/V). [facility] sucralfate 1 gram tablet 07-31 00:00: 00 Yes [id number] 1g Take 1 tablet by mouth before meals and at bedtime. [facility] ondansetron 4 mg disintegrat ing tablet 07-31 00:00: 00 05-19 00:00 :00 No [id number] 4mg Take 1 tablet by mouth every 8 (eight) hours as needed for Nausea and Vomiting (N/V). [facility] sucralfate 1 gram tablet 07-31 00:00: 00 05-19 00:00 :00 No [id number] 1g Take 1 tablet by mouth before meals and at bedtime. [facility] pantoprazol e 40 mg EC tablet 07-31 00:00: 00 08-15:59 :00 No [id number] 40mg Take 1 tablet by mouth in the morning for 14 days. [facility] pantoprazol e 40 mg EC tablet 2022-0 3-21 00:00: 00 08-15 04:59 :00 No [id number] 40mg Take 1 tablet by mouth in [...] 1 capsule by mouth in the morning. [facility] 0.4 mg 24 hr capsule 2023-0 3-15 00:00: 00 Yes .4mg Take 1 capsule by mouth in the morning. [facility] tamsulosin 0.4 mg 24 hr capsule 2023-0 3-15 00:00: 00 Yes .4mg Take 1 capsule by mouth in the morning. [facility] tamsulosin 0.4 mg 24 hr capsule 2023-0 3-15 00:00: 00 Yes .4mg Take 1 capsule by mouth in the morning. [facility] tamsulosin 0.4 mg 24 hr capsule 2023-0 [...] Yes 50mg Take 1 tablet by mouth. [facility] traMADoL 50 mg tablet 0 13 00:00: 00 Yes 50mg Take 1 tablet by mouth. [facility] traMADoL 50 mg tablet 2022-0 313 00:00: [...] mg tablet 2022-0 305 00:00: 00 Yes [id number] 600mg Take 1 tablet by mouth every 6 (six) hours as needed for Pain (scale 4-6). [facility] ibuprofen 600 mg tablet 2023-0 3-05 00:00: 00 Yes [id number] 600mg Take 1 tablet by mouth every 6 (six) hours as needed for Pain (scale 4-6). [facility] ibuprofen 600 mg tablet 2022-0 3-05 00:00: 00 Yes [id number] 600mg Take 1 tablet by mouth every 6 (six) hours as needed for Pain (scale 4-6). [facility] ibuprofen 600 mg tablet 2022-0 3-05 00:00: 00 07-31 00:00 :00 No [id number] 600mg Take 1 tablet by mouth every [...] 2-17 00:00: 00 Yes [facility] citalopram 10 mg tablet 3-0 2-17 00:00: 00 Yes 10mg Take 1 tablet by mouth in the morning. [facility] QUEtiapine 400 mg tablet 3-0 2-17 00:00: 00 Yes [facility] gabapentin 600 mg tablet 3-0 2-17 00:00: 00 Yes [facility] citalopram 10 mg tablet 3-0 2-17 00:00: 00 Yes 10mg Take 1 tablet by mouth in the morning. [facility] QUEtiapine 400 mg tablet 3-0 2-17 00:00: 00 Yes [facility] gabapentin 600 mg tablet 3-0 2-17 00:00: 00 Yes [facility] citalopram 10 mg tablet 3-0 2-17 00:00: 00 Yes 10mg Take 1 tablet by mouth in the morning. [facility] QUEtiapine 400 mg tablet 3-0 2-17 00:00: 00 Yes [facility] gabapentin 600 mg tablet 3-0 2-17 00:00: 00 Yes [facility] citalopram 10 mg tablet 3-0 2-17 00:00: 00 Yes 10mg Take 1 tablet by mouth in the morning. [facility] QUEtiapine 400 mg tablet 3-0 2-17 00:00: 00 Yes [facility] gabapentin 600 mg tablet 3-0 2-17 00:00: 00 Yes [facility] citalopram 10 mg tablet 3-0 2-17 00:00: 00 Yes 10mg Take 1 tablet by mouth in the morning. [facility] QUEtiapine 400 mg tablet 3-0 2-17 00:00: 00 Yes [facility] gabapentin 600 mg tablet 3-0 2-17 00:00: 00 Yes [facility] citalopram 10 mg tablet 3-0 2-17 00:00: 00 Yes 10mg Take 1 tablet by mouth in the morning. [facility] QUEtiapine 400 mg tablet 2023-0 2-17 00:00: 00 Yes [facility] gabapentin 600 mg tablet 3-0 2-17 00:00: 00 Yes [facility] citalopram 10 mg tablet 3-0 2-17 00:00: 00 Yes 10mg Take 1 tablet by mouth in the morning. [facility] QUEtiapine 400 mg tablet 2023-0 2-17 00:00: 00 Yes [facility] gabapentin 600 mg tablet 3-0 2-17 00:00: 00 Yes [facility] citalopram 10 mg tablet 3-0 2-17 00:00: 00 Yes 10mg Take 1 tablet by mouth in the morning. [facility] QUEtiapine 400 mg tablet 3-0 2-17 00:00: 00 Yes [facility] gabapentin 600 mg tablet 3-0 2-17 00:00: 00 Yes [facility] citalopram 10 mg tablet 3-0 2-17 00:00: 00 Yes 10mg Take 1 tablet by mouth in the morning. [facility] QUEtiapine 400 mg tablet 3-0 2-17 00:00: 00 Yes [facility] gabapentin 600 mg tablet 3-0 2-17 00:00: 00 Yes [facility] citalopram 10 mg tablet 3-0 2-17 00:00: 00 Yes 10mg Take 1 tablet by mouth in the morning. [facility] QUEtiapine 400 mg tablet 2023-0 2-17 00:00: 00 Yes [facility] gabapentin 600 mg tablet 3-0 2-17 00:00: 00 Yes [facility] citalopram 10 mg tablet 3-0 2-17 00:00: 00 Yes 10mg Take 1 tablet by mouth in the morning. [facility] QUEtiapine 400 mg tablet 2023-0 2-17 00:00: 00 Yes [facility] gabapentin 600 mg tablet 2023-0 2-17 00:00: 00 Yes [facility] citalopram 10 mg tablet 2023-0 [...] mg tablets 2022-0 2-11 00:00: 00 Yes [id number] Take by mouth SEE-INSTRU CTIONS. follow package directions [facility] methylPREDN ISolone (MEDROL, ANABELA,) 4 mg tablets 3-0 2-11 00:00: 00 Yes [id number] Take by mouth SEE-INSTRU CTIONS. follow package directions [facility] methylPREDN ISolone (MEDROL, ANABELA,) 4 mg tablets 3-0 2-11 00:00: 00 Yes [id number] Take by mouth SEE-INSTRU CTIONS. follow package directions [facility] methylPREDN ISolone (MEDROL, ANABELA,) 4 mg tablets 2022-0 2-11 00:00: 00 Yes [id number] Take by mouth SEE-INSTRU CTIONS. follow package directions [facility] methylPREDN ISolone (MEDROL, ANABELA,) 4 mg tablets 3-0 2-11 00:00: 00 Yes [id number] Take by mouth SEE-INSTRU CTIONS. follow package directions [facility] methylPREDN ISolone (MEDROL, ANABELA,) 4 mg tablets 06-23 00:00: 00 Yes [id number] Take by mouth SEE-INSTRU CTIONS. follow package directions [facility] methylPREDN ISolone (MEDROL, ANABELA,) 4 mg tablets 06-23 00:00: 00 Yes [id number] Take by mouth SEE-INSTRU CTIONS. follow package directions [facility] methylPREDN ISolone (MEDROL, ANABELA,) 4 mg tablets 06-23 00:00: 00 Yes [id number] Take by mouth SEE-INSTRU CTIONS. follow package directions [facility] methylPREDN ISolone (MEDROL, ANABELA,) 4 mg tablets 06-23 00:00: 00 Yes [id number] Take by mouth SEE-INSTRU CTIONS. follow package directions [facility] methylPREDN ISolone (MEDROL, ANABELA,) 4 mg tablets 06-23 00:00: 00 Yes [id number] Take by mouth SEE-INSTRU CTIONS. follow package directions [facility] methylPREDN ISolone (MEDROL, ANABELA,) 4 mg tablets 06-23 00:00: 00 Yes [id number] Take by mouth SEE-INSTRU CTIONS. follow package directions [facility] methylPREDN ISolone (MEDROL, ANABELA,) 4 mg tablets 06-23 00:00: 00 Yes [id number] Take by mouth SEE-INSTRU CTIONS. follow package directions [facility] methylPREDN ISolone (MEDROL, ANABELA,) 4 mg tablets 06-23 00:00: 00 Yes [id number] Take by mouth SEE-INSTRU CTIONS. follow package directions [facility] methylPREDN ISolone (MEDROL, ANABELA,) 4 mg tablets 06-23 00:00: 00 Yes [id number] Take by mouth SEE-INSTRU CTIONS. follow package directions [facility] bromphenira mine-pseudo ephedrine-D M (BROMFED DM) 2-30-10 mg/5 mL syrup 06-23 00:00: 00 07-04 05:59 :00 No [id number] 5mL Take 5 mL by mouth 4 (four) times daily as needed for Cold symptoms for up to 10 days. [facility] methocarbam oL 750 mg tablet 06-23 00:00: 00 07-01 05:59 :00 No [id number] 750mg Take 1 tablet by mouth 4 [...] dose, On 05/05/22 at 1315, [place] [facility] ketorolac (TORADOL) injection 30 mg 2021-05 19:15: 00 05-05 19:44 :00 No 30mg 30 mg, Slow IV Push, ONCE, 1 dose, On 05/05/22 at 1315, Routine [facility] butalbital- acetaminoph en-caff 50-325-40 mg tablet 2021-05 00:00: 00 Yes [id number] 1{tbl} Take 1 tablet by mouth every 4 (four) hours as needed for Pain (scale 7-10). [facility] butalbital- acetaminoph en-caff 50-325-40 mg tablet 2021-05 00:00: 00 Yes [id number] 1{tbl} Take 1 tablet by mouth every 4 (four) hours as needed for Pain (scale 7-10). [facility] butalbital- acetaminoph en-caff 50-325-40 mg tablet 2021-05 00:00: 00 Yes [id number] 1{tbl} Take 1 tablet by mouth every 4 (four) hours as needed for Pain (scale 7-10). [facility] butalbital- acetaminoph en-caff 50-325-40 mg tablet 2021-05 00:00: 00 Yes [id number] 1{tbl} Take 1 tablet by mouth every 4 (four) hours as needed for Pain (scale 7-10). [facility] butalbital- acetaminoph en-caff 50-325-40 mg tablet 2021-05 00:00: 00 Yes [id number] 1{tbl} Take 1 tablet by mouth every 4 (four) hours as needed for Pain (scale 7-10). [facility] butalbital- acetaminoph en-caff 50-325-40 mg tablet 2021-05 00:00: 00 Yes [id number] 1{tbl} Take 1 tablet by mouth every 4 (four) hours as needed for Pain (scale 7-10). [facility] butalbital- acetaminoph en-caff 50-325-40 mg tablet 2021-05 00:00: 00 Yes [id number] 1{tbl} Take 1 tablet by mouth every 4 (four) hours as needed for Pain (scale 7-10). [facility] butalbital- acetaminoph en-caff 50-325-40 mg tablet 2021-05 00:00: 00 Yes [id number] 1{tbl} Take 1 tablet by mouth every 4 (four) hours as needed for Pain (scale 7-10). [facility] butalbital- acetaminoph en-caff 50-325-40 mg tablet 2021-05 00:00: 00 Yes [id number] 1{tbl} Take 1 tablet by mouth every 4 (four) hours as needed for Pain (scale 7-10). [facility] butalbital- acetaminoph en-caff 50-325-40 mg tablet 2021-05 00:00: 00 Yes [id number] 1{tbl} Take 1 tablet by mouth every 4 (four) hours as needed for Pain (scale 7-10). [facility] butalbital- acetaminoph en-caff 50-325-40 mg tablet 2021-05 00:00: 00 Yes [id number] 1{tbl} Take 1 tablet by mouth every 4 (four) hours as needed for Pain (scale 7-10). [facility] butalbital- acetaminoph en-caff 50-325-40 mg tablet 2021-05 00:00: 00 Yes [id number] 1{tbl} Take 1 tablet by mouth every 4 (four) hours as needed for Pain (scale 7-10). [facility] butalbital- acetaminoph en-caff 50-325-40 mg tablet 2021-05 00:00: 00 Yes [id number] 1{tbl} Take 1 tablet by mouth every 4 (four) hours as needed for Pain (scale 7-10). [facility] butalbital- acetaminoph en-caff 50-325-40 mg tablet 2021-05 00:00: 00 Yes [id number] 1{tbl} Take 1 tablet by mouth every 4 (four) hours as needed for Pain (scale 7-10). [facility] butalbital- acetaminoph en-caff 50-325-40 mg tablet 2021-05 00:00: 00 Yes [id number] 1{tbl} Take 1 tablet by mouth every 4 (four) hours as needed for Pain (scale 7-10). [facility] butalbital- acetaminoph en-caff 50-325-40 mg tablet 2021-05 00:00: 00 Yes [id number] 1{tbl} Take 1 tablet by mouth every [...] 2021-05 00:00: 00 05-04 05:59 :00 No [id number] 500mg Take 1 capsule by mouth in [...] subcutaneou s injection 2021-05 00:00: 00 Yes [id number] 120mg inject 120 mg under the skin once every month. [facility] galcanezuma b-gnlm prefilled (EMGALITY) subcutaneou s injection 2021-05 00:00: 00 Yes [id number] 120mg inject 120 mg under the skin once every month. [facility] galcanezuma b-gnlm prefilled (EMGALITY) subcutaneou s injection 2021-05 00:00: 00 Yes [id number] 120mg inject 120 mg under the skin once every month. [facility] galcanezuma b-gnlm prefilled (EMGALITY) subcutaneou s injection 2021-05 00:00: 00 Yes [id number] 120mg inject 120 mg under the skin once every month. [facility] galcanezuma b-gnlm prefilled (EMGALITY) subcutaneou s injection 2021-05 00:00: 00 Yes [id number] 120mg inject 120 mg under the skin once every month. [facility] galcanezuma b-gnlm prefilled (EMGALITY) subcutaneou s injection 2021-05 00:00: 00 Yes [id number] 120mg inject 120 mg under the skin once every month. [facility] galcanezuma b-gnlm prefilled (EMGALITY) subcutaneou s injection 2021-05 00:00: 00 Yes [id number] 120mg inject 120 mg under the skin once every month. [facility] galcanezuma b-gnlm prefilled (EMGALITY) subcutaneou s injection 2021-05 00:00: 00 Yes [id number] 120mg inject 120 mg under the skin once every month. [facility] galcanezuma b-gnlm prefilled (EMGALITY) subcutaneou s injection 2021-05 00:00: 00 Yes [id number] 120mg inject 120 mg under the skin once every month. [facility] galcanezuma b-gnlm prefilled (EMGALITY) subcutaneou s injection 2021-05 00:00: 00 Yes [id number] 120mg inject 120 mg under the skin once every month. [facility] galcanezuma b-gnlm prefilled (EMGALITY) subcutaneou s injection 2021-05 00:00: 00 Yes [id number] 120mg inject 120 mg under the skin once every month. [facility] galcanezuma b-gnlm prefilled (EMGALITY) subcutaneou s injection 2021-05 00:00: 00 Yes [id number] 120mg inject 120 mg under the skin once every month. [facility] galcanezuma b-gnlm prefilled (EMGALITY) subcutaneou s injection 2021-05 00:00: 00 Yes [id number] 120mg inject 120 mg under the skin once every month. [facility] galcanezuma b-gnlm prefilled (EMGALITY) subcutaneou s injection 2021-05 00:00: 00 Yes [id number] 120mg inject 120 mg under the skin once every month. [facility] galcanezuma b-gnlm prefilled (EMGALITY) subcutaneou s injection 2021-05 00:00: 00 Yes [id number] 120mg inject 120 mg under the skin once every month. [facility] galcanezuma b-gnlm prefilled (EMGALITY) subcutaneou s injection 2021-05 00:00: 00 Yes [id number] 120mg inject 120 mg under the skin once every month. [facility] galcanezuma b-gnlm prefilled (EMGALITY) subcutaneou s injection 2021-05 00:00: 00 Yes [id number] 120mg inject 120 mg under the skin once every month. [facility] galcanezuma b-gnlm prefilled (EMGALITY) subcutaneou s injection 2021-05 00:00: 00 Yes [id number] 120mg inject 120 mg under the skin once every month. [facility] galcanezuma b-gnlm prefilled (EMGALITY) subcutaneou s injection 2021-05 00:00: 00 Yes [id number] 120mg inject 120 mg under the skin once every month. [facility] galcanezuma b-gnlm prefilled (EMGALITY) subcutaneou s injection 2021-05 00:00: 00 Yes [id number] 120mg inject 120 mg under the skin once every month. [facility] galcanezuma b-gnlm prefilled (EMGALITY) subcutaneou s injection 2021-05 00:00: 00 Yes [id number] 120mg inject 120 mg under the skin once every month. [facility] galcanezuma b-gnlm prefilled (EMGALITY) subcutaneou s injection 2021-05 00:00: 00 Yes [id number] 120mg inject 120 mg under the skin once every month. [facility] galcanezuma b-gnlm prefilled (EMGALITY) subcutaneou s injection 2021-05 00:00: 00 Yes [id number] 120mg inject 120 mg under the skin once every month. [facility] galcanezuma b-gnlm prefilled (EMGALITY) subcutaneou s injection 2021-05 00:00: 00 Yes [id number] 120mg inject 120 mg under the skin once every month. [facility] galcanezuma b-gnlm prefilled (EMGALITY) subcutaneou s injection 2021-05 00:00: 00 Yes [id number] 120mg inject 120 mg under the skin once every month. [facility] galcanezuma b-gnlm prefilled (EMGALITY) subcutaneou s injection 2021-05 00:00: 00 Yes [id number] 120mg inject 120 mg under the skin once every month. [facility] galcanezuma b-gnlm prefilled (EMGALITY) subcutaneou s injection 2021-05 00:00: 00 Yes [id number] 120mg inject 120 mg under the skin once every month. [facility] galcanezuma b-gnlm prefilled (EMGALITY) subcutaneou s injection 2021-05 00:00: 00 Yes [id number] 120mg inject 120 mg under the skin once every month. [facility] galcanezuma b-gnlm prefilled (EMGALITY) subcutaneou s injection 2021-05 00:00: 00 Yes [id number] 120mg inject 120 mg under the skin once every month. [facility] galcanezuma b-gnlm prefilled (EMGALITY) subcutaneou s injection 2021-05 00:00: 00 Yes [id number] 120mg inject 120 mg under the skin once every month. [facility] galcanezuma b-gnlm prefilled (EMGALITY) subcutaneou s injection 2021-05 00:00: 00 Yes [id number] 120mg inject 120 mg under the skin once every month. [facility] galcanezuma b-gnlm prefilled (EMGALITY) subcutaneou s injection 2021-05 00:00: 00 Yes [id number] 120mg inject 120 mg under the skin once every month. [facility] galcanezuma b-gnlm prefilled (EMGALITY) subcutaneou s injection 2021-05 00:00: 00 Yes [id number] 120mg inject 120 mg under the skin once every month. [facility] galcanezuma b-gnlm prefilled (EMGALITY) subcutaneou s injection 2021-05 00:00: 00 Yes [id number] 120mg inject 120 mg under the skin once every month. [facility] galcanezuma b-gnlm prefilled (EMGALITY) subcutaneou s injection 2021-05 00:00: 00 Yes [id number] 120mg inject 120 mg under the skin once every month. [facility] galcanezuma b-gnlm prefilled (EMGALITY) subcutaneou s injection 2021-05 00:00: 00 Yes [id number] 120mg inject 120 mg under the skin [...] dose, On 04/07/22 at 1830, [facility]BENADRYL[facility] 12.5 mg 2021-05 23:45: 00 04-07 23:46 :00 No 12.5mg 12.5 mg, Slow IV Push, ONCE, 1 dose, On 04/07/22 at 1745, STAT [facility] butorphanol (STADOL) injection 1 mg 2021-05 23:15: 00 04-07 22:48 :00 No 1mg 1 mg, IV Push, ONCE, 1 dose, On 04/07/22 at 1715, Routine [facility] NaCl 0.9% (NS) bolus infusion 1,000 mL 2021-05 23:15: 00 04-07 23:49 :00 No 1000mL at 999 mL/hr, 1,000 mL, IV Infusion, ONCE, 1 dose, On 04/07/22 at 1715, [place] [facility] ketorolac (TORADOL) injection 15 mg 2021-05 19:30: 00 03-24 18:45 :00 No 15mg 15 mg, Slow IV Push, ONCE, 1 dose, On 03/24/22 at 1330, Routine [facility] butorphanol (STADOL) injection 1 mg 2021-05 18:00: 00 03-24 17:26 :00 No 1mg 1 mg, Intravenou s, ONCE, 1 dose, On 03/24/22 at 1200, Routine [facility] proMETHazin e (PHENERGAN) 25 mg in NaCl [...] ONCE, 1 dose, On 03/24/22 at 0915, [facility] magnesium sulfate in water 2 [...] 10 mg tablet 2021-05 00:00: 00 Yes [id number] 10mg Take 1 tablet by mouth as needed for Migraine. May repeat in 2 hours if needed [facility] Butalbital- Acetaminoph en-Caff (FIORICET) 50-300-40 mg per capsule 2021-05 00:00: 00 Yes [id number] 1{capsu le} Take 1 capsule by mouth every 6 (six) hours as needed for Other (headache) . [facility] magnesium oxide 200 mg magnesium Tab 2021-05 00:00: 00 Yes [id number] 200mg Take 200 mg by mouth 2 (two) times daily. Indication s: headache [facility] rizatriptan 10 mg tablet 2021-05 00:00: 00 Yes [id number] 10mg Take 1 tablet by mouth as needed for Migraine. May repeat in 2 hours if needed [facility] Butalbital- Acetaminoph en-Caff (FIORICET) 50-300-40 mg per capsule 2021-05 00:00: 00 Yes [id number] 1{capsu le} Take 1 capsule by mouth every 6 (six) hours as needed for Other (headache) . [facility] magnesium oxide 200 mg magnesium Tab 2021-05 00:00: 00 Yes [id number] 200mg Take 200 mg by mouth 2 (two) times daily. Indication s: headache [facility] rizatriptan 10 mg tablet 2021-05 00:00: 00 Yes [id number] 10mg Take 1 tablet by mouth as needed for Migraine. May repeat in 2 hours if needed [facility] Butalbital- Acetaminoph en-Caff (FIORICET) 50-300-40 mg per capsule 2021-05 00:00: 00 Yes [id number] 1{capsu le} Take 1 capsule by mouth every 6 (six) hours as needed for Other (headache) . [facility] magnesium oxide 200 mg magnesium Tab 2021-05 00:00: 00 Yes [id number] 200mg Take 200 mg by mouth 2 (two) times daily. Indication s: headache [facility] rizatriptan 10 mg tablet 2021-05 00:00: 00 Yes [id number] 10mg Take 1 tablet by mouth as needed for Migraine. May repeat in 2 hours if needed [facility] Butalbital- Acetaminoph en-Caff (FIORICET) 50-300-40 mg per capsule 2021-05 00:00: 00 Yes [id number] 1{capsu le} Take 1 capsule by mouth every 6 (six) hours as needed for Other (headache) . [facility] rizatriptan 10 mg tablet 2021-05 00:00: 00 Yes [id number] 10mg Take 1 tablet by mouth as needed for Migraine. May repeat in 2 hours if needed [facility] Butalbital- Acetaminoph en-Caff (FIORICET) 50-300-40 mg per capsule 2021-05 00:00: 00 Yes [id number] 1{capsu le} Take 1 capsule by mouth every 6 (six) hours as needed for Other (headache) . [facility] rizatriptan 10 mg tablet 2021-05 00:00: 00 Yes [id number] 10mg Take 1 tablet by mouth as needed for Migraine. May repeat in 2 hours if needed [facility] Butalbital- Acetaminoph en-Caff (FIORICET) 50-300-40 mg per capsule 2021-05 00:00: 00 Yes [id number] 1{capsu le} Take 1 capsule by mouth every 6 (six) hours as needed for Other (headache) . [facility] rizatriptan 10 mg tablet 2021-05 00:00: 00 Yes [id number] 10mg Take 1 tablet by mouth as needed for Migraine. May repeat in 2 hours if needed [facility] Butalbital- Acetaminoph en-Caff (FIORICET) 50-300-40 mg per capsule 2021-05 00:00: 00 Yes [id number] 1{capsu le} Take 1 capsule by mouth every 6 (six) hours as needed for Other (headache) . [facility] rizatriptan 10 mg tablet 2021-05 00:00: 00 Yes [id number] 10mg Take 1 tablet by mouth as needed for Migraine. May repeat in 2 hours if needed [facility] Butalbital- Acetaminoph en-Caff (FIORICET) 50-300-40 mg per capsule 2021-05 00:00: 00 Yes [id number] 1{capsu le} Take 1 capsule by mouth every 6 (six) hours as needed for Other (headache) . [facility] rizatriptan 10 mg tablet 2021-05 00:00: 00 Yes [id number] 10mg Take 1 tablet by mouth as needed for Migraine. May repeat in 2 hours if needed [facility] Butalbital- Acetaminoph en-Caff (FIORICET) 50-300-40 mg per capsule 2021-05 00:00: 00 Yes [id number] 1{capsu le} Take 1 capsule by mouth every 6 (six) hours as needed for Other (headache) . [facility] rizatriptan 10 mg tablet 2021-05 00:00: 00 Yes [id number] 10mg Take 1 tablet by mouth as needed for Migraine. May repeat in 2 hours if needed [facility] Butalbital- Acetaminoph en-Caff (FIORICET) 50-300-40 mg per capsule 2021-05 00:00: 00 Yes [id number] 1{capsu le} Take 1 capsule by mouth every 6 (six) hours as needed for Other (headache) . [facility] rizatriptan 10 mg tablet 2021-05 00:00: 00 Yes [id number] 10mg Take 1 tablet by mouth as needed for Migraine. May repeat in 2 hours if needed [facility] Butalbital- Acetaminoph en-Caff (FIORICET) 50-300-40 mg per capsule 2021-05 00:00: 00 Yes [id number] 1{capsu le} Take 1 capsule by mouth every 6 (six) hours as needed for Other (headache) . [facility] rizatriptan 10 mg tablet 2021-05 00:00: 00 Yes [id number] 10mg Take 1 tablet by mouth as needed for Migraine. May repeat in 2 hours if needed [facility] Butalbital- Acetaminoph en-Caff (FIORICET) 50-300-40 mg per capsule 2021-05 00:00: 00 Yes [id number] 1{capsu le} Take 1 capsule by mouth every 6 (six) hours as needed for Other (headache) . [facility] rizatriptan 10 mg tablet 2021-05 00:00: 00 Yes [id number] 10mg Take 1 tablet by mouth as needed for Migraine. May repeat in 2 hours if needed [facility] Butalbital- Acetaminoph en-Caff (FIORICET) 50-300-40 mg per capsule 2021-05 00:00: 00 Yes [id number] 1{capsu le} Take 1 capsule by mouth every 6 (six) hours as needed for Other (headache) . [facility] rizatriptan 10 mg tablet 2021-05 00:00: 00 Yes [id number] 10mg Take 1 tablet by mouth as needed for Migraine. May repeat in 2 hours if needed [facility] Butalbital- Acetaminoph en-Caff (FIORICET) 50-300-40 mg per capsule 2021-05 00:00: 00 Yes [id number] 1{capsu le} Take 1 capsule by mouth every 6 (six) hours as needed for Other (headache) . [facility] rizatriptan 10 mg tablet 2021-05 00:00: 00 Yes [id number] 10mg Take 1 tablet by mouth as needed for Migraine. May repeat in 2 hours if needed [facility] Butalbital- Acetaminoph en-Caff (FIORICET) 50-300-40 mg per capsule 2021-05 00:00: 00 Yes [id number] 1{capsu le} Take 1 capsule by mouth every 6 (six) hours as needed for Other (headache) . [facility] rizatriptan 10 mg tablet 2021-05 00:00: 00 Yes [id number] 10mg Take 1 tablet by mouth as needed for Migraine. May repeat in 2 hours if needed [facility] Butalbital- Acetaminoph en-Caff (FIORICET) 50-300-40 mg per capsule 2021-05 00:00: 00 Yes [id number] 1{capsu le} Take 1 capsule by mouth every 6 (six) hours as needed for Other (headache) . [facility] rizatriptan 10 mg tablet 2021-05 00:00: 00 Yes [id number] 10mg Take 1 tablet by mouth as needed for Migraine. May repeat in 2 hours if needed [facility] Butalbital- Acetaminoph en-Caff (FIORICET) 50-300-40 mg per capsule 2021-05 00:00: 00 Yes [id number] 1{capsu le} Take 1 capsule by mouth every 6 (six) hours as needed for Other (headache) . [facility] rizatriptan 10 mg tablet 2021-05 00:00: 00 Yes [id number] 10mg Take 1 tablet by mouth as needed for Migraine. May repeat in 2 hours if needed [facility] Butalbital- Acetaminoph en-Caff (FIORICET) 50-300-40 mg per capsule 2021-05 00:00: 00 Yes [id number] 1{capsu le} Take 1 capsule by mouth every 6 (six) hours as needed for Other (headache) . [facility] rizatriptan 10 mg tablet 2021-05 00:00: 00 Yes [id number] 10mg Take 1 tablet by mouth as needed for Migraine. May repeat in 2 hours if needed [facility] Butalbital- Acetaminoph en-Caff (FIORICET) 50-300-40 mg per capsule 2021-05 00:00: 00 Yes [id number] 1{capsu le} Take 1 capsule by mouth every 6 (six) hours as needed for Other (headache) . [facility] rizatriptan 10 mg tablet 2021-05 00:00: 00 Yes [id number] 10mg Take 1 tablet by mouth as needed for Migraine. May repeat in 2 hours if needed [facility] Butalbital- Acetaminoph en-Caff (FIORICET) 50-300-40 mg per capsule 2021-05 00:00: 00 Yes [id number] 1{capsu le} Take 1 capsule by mouth every 6 (six) hours as needed for Other (headache) . [facility] rizatriptan 10 mg tablet 2021-05 00:00: 00 Yes [id number] 10mg Take 1 tablet by mouth as needed for Migraine. May repeat in 2 hours if needed [facility] Butalbital- Acetaminoph en-Caff (FIORICET) 50-300-40 mg per capsule 2021-05 00:00: 00 Yes [id number] 1{capsu le} Take 1 capsule by mouth every 6 (six) hours as needed for Other (headache) . [facility] rizatriptan 10 mg tablet 2021-05 00:00: 00 Yes [id number] 10mg Take 1 tablet by mouth as needed for Migraine. May repeat in 2 hours if needed [facility] Butalbital- Acetaminoph en-Caff (FIORICET) 50-300-40 mg per capsule 2021-05 00:00: 00 Yes [id number] 1{capsu le} Take 1 capsule by mouth every 6 (six) hours as needed for Other (headache) . [facility] rizatriptan 10 mg tablet 2021-05 00:00: 00 Yes [id number] 10mg Take 1 tablet by mouth as needed for Migraine. May repeat in 2 hours if needed [facility] Butalbital- Acetaminoph en-Caff (FIORICET) 50-300-40 mg per capsule 2021-05 00:00: 00 Yes [id number] 1{capsu le} Take 1 capsule by mouth every 6 (six) hours as needed for Other (headache) . [facility] rizatriptan 10 mg tablet 2021-05 00:00: 00 Yes [id number] 10mg Take 1 tablet by mouth as needed for Migraine. May repeat in 2 hours if needed [facility] Butalbital- Acetaminoph en-Caff (FIORICET) 50-300-40 mg per capsule 2021-05 00:00: 00 Yes [id number] 1{capsu le} Take 1 capsule by mouth every 6 (six) hours as needed for Other (headache) . [facility] rizatriptan 10 mg tablet 2021-05 00:00: 00 Yes [id number] 10mg Take 1 tablet by mouth as needed for Migraine. May repeat in 2 hours if needed [facility] Butalbital- Acetaminoph en-Caff (FIORICET) 50-300-40 mg per capsule 2021-05 00:00: 00 Yes [id number] 1{capsu le} Take 1 capsule by mouth every 6 (six) hours as needed for Other (headache) . [facility] rizatriptan 10 mg tablet 2021-05 00:00: 00 Yes [id number] 10mg Take 1 tablet by mouth as needed for Migraine. May repeat in 2 hours if needed [facility] Butalbital- Acetaminoph en-Caff (FIORICET) 50-300-40 mg per capsule 2021-05 00:00: 00 Yes [id number] 1{capsu le} Take 1 capsule by mouth every 6 (six) hours as needed for Other (headache) . [facility] rizatriptan 10 mg tablet 2021-05 00:00: 00 Yes [id number] 10mg Take 1 tablet by mouth as needed for Migraine. May repeat in 2 hours if needed [facility] Butalbital- Acetaminoph en-Caff (FIORICET) 50-300-40 mg per capsule 2021-05 00:00: 00 Yes [id number] 1{capsu le} Take 1 capsule by mouth every 6 (six) hours as needed for Other (headache) . [facility] rizatriptan 10 mg tablet 2021-05 00:00: 00 Yes [id number] 10mg Take 1 tablet by mouth as needed for Migraine. May repeat in 2 hours if needed [facility] Butalbital- Acetaminoph en-Caff (FIORICET) 50-300-40 mg per capsule 2021-05 00:00: 00 Yes [id number] 1{capsu le} Take 1 capsule by mouth every 6 (six) hours as needed for Other (headache) . [facility] rizatriptan 10 mg tablet 2021-05 00:00: 00 Yes [id number] 10mg Take 1 tablet by mouth as needed for Migraine. May repeat in 2 hours if needed [facility] Butalbital- Acetaminoph en-Caff (FIORICET) 50-300-40 mg per capsule 2021-05 00:00: 00 Yes [id number] 1{capsu le} Take 1 capsule by mouth every 6 (six) hours as needed for Other (headache) . [facility] rizatriptan 10 mg tablet 2021-05 00:00: 00 Yes [id number] 10mg Take 1 tablet by mouth as needed for Migraine. May repeat in 2 hours if needed [facility] Butalbital- Acetaminoph en-Caff (FIORICET) 50-300-40 mg per capsule 2021-05 00:00: 00 Yes [id number] 1{capsu le} Take 1 capsule by mouth every 6 (six) hours as needed for Other (headache) . [facility] rizatriptan 10 mg tablet 2021-05 00:00: 00 Yes [id number] 10mg Take 1 tablet by mouth as needed for Migraine. May repeat in 2 hours if needed [facility] Butalbital- Acetaminoph en-Caff (FIORICET) 50-300-40 mg per capsule 2021-05 00:00: 00 Yes [id number] 1{capsu le} Take 1 capsule by mouth every 6 (six) hours as needed for Other (headache) . [facility] rizatriptan 10 mg tablet 2021-05 00:00: 00 Yes [id number] 10mg Take 1 tablet by mouth as needed for Migraine. May repeat in 2 hours if needed [facility] Butalbital- Acetaminoph en-Caff (FIORICET) 50-300-40 mg per capsule 2021-05 00:00: 00 Yes [id number] 1{capsu le} Take 1 capsule by mouth every 6 (six) hours as needed for Other (headache) . [facility] rizatriptan 10 mg tablet 2021-05 00:00: 00 Yes [id number] 10mg Take 1 tablet by mouth as needed for Migraine. May repeat in 2 hours if needed [facility] Butalbital- Acetaminoph en-Caff (FIORICET) 50-300-40 mg per capsule 2021-05 00:00: 00 Yes [id number] 1{capsu le} Take 1 capsule by mouth every 6 (six) hours as needed for Other (headache) . [facility] rizatriptan 10 mg tablet 2021-05 00:00: 00 Yes [id number] 10mg Take 1 tablet by mouth as needed for Migraine. May repeat in 2 hours if needed [facility] Butalbital- Acetaminoph en-Caff (FIORICET) 50-300-40 mg per capsule 2021-05 00:00: 00 Yes [id number] 1{capsu le} Take 1 capsule by mouth every 6 (six) hours as needed for Other (headache) . [facility] rizatriptan 10 mg tablet 2021-05 00:00: 00 Yes [id number] 10mg Take 1 tablet by mouth as needed for Migraine. May repeat in 2 hours if needed [facility] Butalbital- Acetaminoph en-Caff (FIORICET) 50-300-40 mg per capsule 2021-05 00:00: 00 Yes [id number] 1{capsu le} Take 1 capsule by mouth every 6 (six) hours as needed for Other (headache) . [facility] rizatriptan 10 mg tablet 2021-05 00:00: 00 Yes [id number] 10mg Take 1 tablet by mouth as needed for Migraine. May repeat in 2 hours if needed [facility] Butalbital- Acetaminoph en-Caff (FIORICET) 50-300-40 mg per capsule 2021-05 00:00: 00 Yes [id number] 1{capsu le} Take 1 capsule by mouth every 6 (six) hours as needed for Other (headache) . [facility] rizatriptan 10 mg tablet 2021-05 00:00: 00 Yes [id number] 10mg Take 1 tablet by mouth as needed for Migraine. May repeat in 2 hours if needed [facility] Butalbital- Acetaminoph en-Caff (FIORICET) 50-300-40 mg per capsule 2021-05 00:00: 00 Yes [id number] 1{capsu le} Take 1 capsule by mouth every 6 (six) hours as needed for Other (headache) . [facility] rizatriptan 10 mg tablet 2021-05 00:00: 00 Yes [id number] 10mg Take 1 tablet by mouth as needed for Migraine. May repeat in 2 hours if needed [facility] Butalbital- Acetaminoph en-Caff (FIORICET) 50-300-40 mg per capsule 2021-05 00:00: 00 Yes [id number] 1{capsu le} Take 1 capsule by mouth every 6 (six) hours as needed for Other (headache) . [facility] rizatriptan 10 mg tablet 2021-05 00:00: 00 Yes [id number] 10mg Take 1 tablet by mouth as needed for Migraine. May repeat in 2 hours if needed [facility] Butalbital- Acetaminoph en-Caff (FIORICET) 50-300-40 mg per capsule 2021-05 00:00: 00 Yes [id number] 1{capsu le} Take 1 capsule by mouth every 6 (six) hours as needed for Other (headache) . [facility] rizatriptan 10 mg tablet 2021-05 00:00: 00 Yes [id number] 10mg Take 1 tablet by mouth as needed for Migraine. May repeat in 2 hours if needed [facility] Butalbital- Acetaminoph en-Caff (FIORICET) 50-300-40 mg per capsule 2021-05 00:00: 00 Yes [id number] 1{capsu le} Take 1 capsule by mouth every 6 (six) hours as needed for Other (headache) . [facility] rizatriptan 10 mg tablet 2021-05 00:00: 00 Yes [id number] 10mg Take 1 tablet by mouth as needed for Migraine. May repeat in 2 hours if needed [facility] Butalbital- Acetaminoph en-Caff (FIORICET) 50-300-40 mg per capsule 2021-05 00:00: 00 Yes [id number] 1{capsu le} Take 1 capsule by mouth [...] disintegrat ing tablet 2021-05 00:00: 00 Yes [id number] 4mg Take 1 tablet by mouth every 8 (eight) hours as needed for Nausea and Vomiting (N/V). [facility] ketorolac 10 mg tablet 2021-05 00:00: 00 Yes [id number] 10mg Take 1 tablet by mouth every 6 (six) hours as needed for Pain (scale 7-10). [facility] proMETHazin e 25 mg tablet 2021-05 00:00: 00 Yes [id number] 25mg Take 1 tablet by mouth every 6 (six) hours as needed for N/V unresponsi ve to Ondansetro n. [facility] ondansetron 4 mg disintegrat ing tablet 2021-05 00:00: 00 Yes [id number] 4mg Take 1 tablet by mouth every 8 (eight) hours as needed for Nausea and Vomiting (N/V). [facility] ketorolac 10 mg tablet 2021-05 00:00: 00 Yes [id number] 10mg Take 1 tablet by mouth every 6 (six) hours as needed for Pain (scale 7-10). [facility] proMETHazin e 25 mg tablet 2021-05 00:00: 00 Yes [id number] 25mg Take 1 tablet by mouth every 6 (six) hours as needed for N/V unresponsi ve to Ondansetro n. [facility] carvediloL 25 mg tablet 2021-05 00:00: 00 Yes [id number] 25mg Take 1 tablet by mouth in the morning and 1 tablet in the evening. Take with meals. [facility] ondansetron 4 mg disintegrat ing tablet 2021-05 00:00: 00 Yes [id number] 4mg Take 1 tablet by mouth every 8 (eight) hours as needed for Nausea and Vomiting (N/V). [facility] ketorolac 10 mg tablet 2021-05 00:00: 00 Yes [id number] 10mg Take 1 tablet by mouth every 6 (six) hours as needed for Pain (scale 7-10). [facility] proMETHazin e 25 mg tablet 2021-05 00:00: 00 Yes [id number] 25mg Take 1 tablet by mouth every 6 (six) hours as needed for N/V unresponsi ve to Ondansetro n. [facility] carvediloL 25 mg tablet 2021-05 00:00: 00 Yes [id number] 25mg Take 1 tablet by mouth in the morning and 1 tablet in the evening. Take with meals. [facility] ondansetron 4 mg disintegrat ing tablet 2021-05 00:00: 00 Yes [id number] 4mg Take 1 tablet by mouth every 8 (eight) hours as needed for Nausea and Vomiting (N/V). [facility] ketorolac 10 mg tablet 2021-05 00:00: 00 Yes [id number] 10mg Take 1 tablet by mouth every 6 (six) hours as needed for Pain (scale 7-10). [facility] proMETHazin e 25 mg tablet 2021-05 00:00: 00 Yes [id number] 25mg Take 1 tablet by mouth every 6 (six) hours as needed for N/V unresponsi ve to Ondansetro n. [facility] carvediloL 25 mg tablet 2021-05 00:00: 00 Yes [id number] 25mg Take 1 tablet by mouth in the morning and 1 tablet in the evening. Take with meals. [facility] ondansetron 4 mg disintegrat ing tablet 2021-05 00:00: 00 Yes [id number] 4mg Take 1 tablet by mouth every 8 (eight) hours as needed for Nausea and Vomiting (N/V). [facility] ketorolac 10 mg tablet 2021-05 00:00: 00 Yes [id number] 10mg Take 1 tablet by mouth every 6 (six) hours as needed for Pain (scale 7-10). [facility] proMETHazin e 25 mg tablet 2021-05 00:00: 00 Yes [id number] 25mg Take 1 tablet by mouth every 6 (six) hours as needed for N/V unresponsi ve to Ondansetro n. [facility] carvediloL 25 mg tablet 2021-05 00:00: 00 Yes [id number] 25mg Take 1 tablet by mouth in the morning and 1 tablet in the evening. Take with meals. [facility] ondansetron 4 mg disintegrat ing tablet 2021-05 00:00: 00 Yes [id number] 4mg Take 1 tablet by mouth every 8 (eight) hours as needed for Nausea and Vomiting (N/V). [facility] ketorolac 10 mg tablet 2021-05 00:00: 00 Yes [id number] 10mg Take 1 tablet by mouth every 6 (six) hours as needed for Pain (scale 7-10). [facility] proMETHazin e 25 mg tablet 2021-05 00:00: 00 Yes [id number] 25mg Take 1 tablet by mouth every 6 (six) hours as needed for N/V unresponsi ve to Ondansetro n. [facility] carvediloL 25 mg tablet 2021-05 00:00: 00 Yes [id number] 25mg Take 1 tablet by mouth in the morning and 1 tablet in the evening. Take with meals. [facility] ondansetron 4 mg disintegrat ing tablet 2021-05 00:00: 00 Yes [id number] 4mg Take 1 tablet by mouth every 8 (eight) hours as needed for Nausea and Vomiting (N/V). [facility] ketorolac 10 mg tablet 2021-05 00:00: 00 Yes [id number] 10mg Take 1 tablet by mouth every 6 (six) hours as needed for Pain (scale 7-10). [facility] proMETHazin e 25 mg tablet 2021-05 00:00: 00 Yes [id number] 25mg Take 1 tablet by mouth every 6 (six) hours as needed for N/V unresponsi ve to Ondansetro n. [facility] carvediloL 25 mg tablet 2021-05 00:00: 00 Yes [id number] 25mg Take 1 tablet by mouth in the morning and 1 tablet in the evening. Take with meals. [facility] ondansetron 4 mg disintegrat ing tablet 2021-05 00:00: 00 Yes [id number] 4mg Take 1 tablet by mouth every 8 (eight) hours as needed for Nausea and Vomiting (N/V). [facility] ketorolac 10 mg tablet 2021-05 00:00: 00 Yes [id number] 10mg Take 1 tablet by mouth every 6 (six) hours as needed for Pain (scale 7-10). [facility] proMETHazin e 25 mg tablet 2021-05 00:00: 00 Yes [id number] 25mg Take 1 tablet by mouth every 6 (six) hours as needed for N/V unresponsi ve to Ondansetro n. [facility] carvediloL 25 mg tablet 2021-05 00:00: 00 Yes [id number] 25mg Take 1 tablet by mouth in the morning and 1 tablet in the evening. Take with meals. [facility] ondansetron 4 mg disintegrat ing tablet 2021-05 00:00: 00 Yes [id number] 4mg Take 1 tablet by mouth every 8 (eight) hours as needed for Nausea and Vomiting (N/V). [facility] ketorolac 10 mg tablet 2021-05 00:00: 00 Yes [id number] 10mg Take 1 tablet by mouth every 6 (six) hours as needed for Pain (scale 7-10). [facility] proMETHazin e 25 mg tablet 2021-05 00:00: 00 Yes [id number] 25mg Take 1 tablet by mouth every 6 (six) hours as needed for N/V unresponsi ve to Ondansetro n. [facility] carvediloL 25 mg tablet 2021-05 00:00: 00 Yes [id number] 25mg Take 1 tablet by mouth in the morning and 1 tablet in the evening. Take with meals. [facility] ondansetron 4 mg disintegrat ing tablet 2021-05 00:00: 00 Yes [id number] 4mg Take 1 tablet by mouth every 8 (eight) hours as needed for Nausea and Vomiting (N/V). [facility] ketorolac 10 mg tablet 2021-05 00:00: 00 Yes [id number] 10mg Take 1 tablet by mouth every 6 (six) hours as needed for Pain (scale 7-10). [facility] proMETHazin e 25 mg tablet 2021-05 00:00: 00 Yes [id number] 25mg Take 1 tablet by mouth every 6 (six) hours as needed for N/V unresponsi ve to Ondansetro n. [facility] carvediloL 25 mg tablet 2021-05 00:00: 00 Yes [id number] 25mg Take 1 tablet by mouth in the morning and 1 tablet in the evening. Take with meals. [facility] carvediloL 25 mg tablet 2021-05 00:00: 00 Yes [id number] 25mg Take 1 tablet by mouth in the morning and 1 tablet in the evening. Take with meals. [facility] carvediloL 25 mg tablet 2021-05 00:00: 00 Yes [id number] 25mg Take 1 tablet by mouth in the morning and 1 tablet in the evening. Take with meals. [facility] carvediloL 25 mg tablet 2021-05 00:00: 00 Yes [id number] 25mg Take 1 tablet by mouth in the morning and 1 tablet in the evening. Take with meals. [facility] carvediloL 25 mg tablet 2021-05 00:00: 00 Yes [id number] 25mg Take 1 tablet by mouth in the morning and 1 tablet in the evening. Take with meals. [facility] carvediloL 25 mg tablet 2021-05 00:00: 00 Yes [id number] 25mg Take 1 tablet by mouth in the morning and 1 tablet in the evening. Take with meals. [facility] carvediloL 25 mg tablet 2021-05 00:00: 00 Yes [id number] 25mg Take 1 tablet by mouth in the morning and 1 tablet in the evening. Take with meals. [facility] carvediloL 25 mg tablet 2021-05 00:00: 00 Yes [id number] 25mg Take 1 tablet by mouth in the morning and 1 tablet in the evening. Take with meals. [facility] carvediloL 25 mg tablet 2021-05 00:00: 00 Yes [id number] 25mg Take 1 tablet by mouth in the morning and 1 tablet in the evening. Take with meals. [facility] carvediloL 25 mg tablet 2021-05 00:00: 00 Yes [id number] 25mg Take 1 tablet by mouth in the morning and 1 tablet in the evening. Take with meals. [facility] carvediloL 25 mg tablet 2021-05 00:00: 00 Yes [id number] 25mg Take 1 tablet by mouth in the morning and 1 tablet in the evening. Take with meals. [facility] carvediloL 25 mg tablet 2021-05 00:00: 00 Yes [id number] 25mg Take 1 tablet by mouth in the morning and 1 tablet in the evening. Take with meals. [facility] carvediloL 25 mg tablet 2021-05 00:00: 00 Yes [id number] 25mg Take 1 tablet by mouth in the morning and 1 tablet in the evening. Take with meals. [facility] carvediloL 25 mg tablet 2021-05 00:00: 00 Yes [id number] 25mg Take 1 tablet by mouth in the morning and 1 tablet in the evening. Take with meals. [facility] carvediloL 25 mg tablet 2021-05 00:00: 00 Yes [id number] 25mg Take 1 tablet by mouth in the morning and 1 tablet in the evening. Take with meals. [facility] carvediloL 25 mg tablet 2021-05 00:00: 00 Yes [id number] 25mg Take 1 tablet by mouth in the morning and 1 tablet in the evening. Take with meals. [facility] carvediloL 25 mg tablet 2021-05 00:00: 00 Yes [id number] 25mg Take 1 tablet by mouth in the morning and 1 tablet in the evening. Take with meals. [facility] carvediloL 25 mg tablet 2021-05 00:00: 00 Yes [id number] 25mg Take 1 tablet by mouth in the morning and 1 tablet in the evening. Take with meals. [facility] carvediloL 25 mg tablet 2021-05 00:00: 00 Yes [id number] 25mg Take 1 tablet by mouth in the morning and 1 tablet in the evening. Take with meals. [facility] carvediloL 25 mg tablet 2021-05 00:00: 00 Yes [id number] 25mg Take 1 tablet by mouth in the morning and 1 tablet in the evening. Take with meals. [facility] carvediloL 25 mg tablet 2021-05 00:00: 00 Yes [id number] 25mg Take 1 tablet by mouth in the morning and 1 tablet in the evening. Take with meals. [facility] carvediloL 25 mg tablet 2021-05 00:00: 00 Yes [id number] 25mg Take 1 tablet by mouth in the morning and 1 tablet in the evening. Take with meals. [facility] carvediloL 25 mg tablet 2021-05 00:00: 00 09-05 00:00 :00 No [id number] 25mg Take 1 tablet by mouth in the morning and 1 tablet in the evening. Take with meals. [facility] carvediloL 25 mg tablet 2021-05 00:00: 00 09-05 00:00 :00 No [id number] 25mg Take 1 tablet by mouth in the morning and 1 tablet in the evening. Take with meals. [facility] ondansetron 4 mg disintegrat ing tablet 2021-05 00:00: 00 04-07 00:00 :00 No [id number] 4mg Take 1 tablet by mouth every 8 (eight) hours as needed for Nausea and Vomiting (N/V). [facility] ketorolac 10 mg tablet 2021-05 00:00: 00 04-07 00:00 :00 No [id number] 10mg Take 1 tablet by mouth every 6 (six) hours as needed for Pain (scale 7-10). [facility] proMETHazin e 25 mg tablet 2021-05 00:00: 00 04-07 00:00 :00 No [id number] 25mg Take 1 tablet by mouth every 6 (six) hours as needed for N/V unresponsi ve to Ondansetro n. [facility] cephALEXin 500 mg capsule 2021-05 00:00: 00 03-19 05:59 :00 No [id number] 500mg Take 1 capsule by mouth 4 (four) times daily for 3 days. [facility] cephALEXin 500 mg capsule 2021-05 00:00: 00 03-19 05:59 :00 No [id number] 500mg Take 1 capsule by mouth 4 (four) times daily for 3 days. [facility] cephALEXin 500 mg capsule 2021-05 00:00: 00 03-19 05:59 :00 No [id number] 500mg Take 1 capsule by mouth 4 (four) times daily for 3 days. [facility] predniSONE 20 mg tablet 2021-05 00:00: 00 03-15 04:59 :00 No [id number] 20mg Take 1 tablet by mouth in [...] ONCE, 1 dose, [facility]PHENERGAN[facility] 12.5 mg in NaCl 0.9% (NS) 50 mL IV piggyback 2021-05 14:45: 00 03-11 15:04 :00 No 12.5mg 12.5 mg, IV Piggyback, ONCE, 1 dose, On 03/11/22 at 0945, [facility] proMETHazin e 25 mg tablet 2021-05 00:00: 00 Yes [id number] 25mg Take 1 tablet by mouth every 6 (six) hours as needed for Nausea and Vomiting (N/V). [facility] methocarbam oL 500 mg tablet 2021-05 00:00: 00 Yes [id number] 500mg Take 1 tablet by mouth 3 (three) times daily as needed for Pain (scale 7-10). [facility] proMETHazin e 25 mg tablet 2021-05 00:00: 00 Yes [id number] 25mg Take 1 tablet by mouth every 6 (six) hours as needed for Nausea and Vomiting (N/V). [facility] methocarbam oL 500 mg tablet 2021-05 00:00: 00 Yes [id number] 500mg Take 1 tablet by mouth 3 (three) times daily as needed for Pain (scale 7-10). [facility] proMETHazin e 25 mg tablet 2021-05 00:00: 00 Yes [id number] 25mg Take 1 tablet by mouth every 6 (six) hours as needed for Nausea and Vomiting (N/V). [facility] methocarbam oL 500 mg tablet 2021-05 0 00:00: 00 Yes [id number] 500mg Take 1 tablet by mouth 3 (three) times daily as needed for Pain (scale 7-10). [facility] proMETHazin e 25 mg tablet 2021-05 0 00:00: 00 Yes [id number] 25mg Take 1 tablet by mouth every 6 (six) hours as needed for Nausea and Vomiting (N/V). [facility] methocarbam oL 500 mg tablet 2021-05 0 00:00: 00 Yes [id number] 500mg Take 1 tablet by mouth 3 (three) times daily as needed for Pain (scale 7-10). [facility] proMETHazin e 25 mg tablet 2021-05 0 00:00: 00 Yes [id number] 25mg Take 1 tablet by mouth every 6 (six) hours as needed for Nausea and Vomiting (N/V). [facility] methocarbam oL 500 mg tablet 2021-05 0 00:00: 00 Yes [id number] 500mg Take 1 tablet by mouth 3 (three) times daily as needed for Pain (scale 7-10). [facility] proMETHazin e 25 mg tablet 2021-05 0 00:00: 00 Yes [id number] 25mg Take 1 tablet by mouth every 6 (six) hours as needed for Nausea and Vomiting (N/V). [facility] methocarbam oL 500 mg tablet 2021-05 0 00:00: 00 Yes [id number] 500mg Take 1 tablet by mouth 3 (three) times daily as needed for Pain (scale 7-10). [facility] proMETHazin e 25 mg tablet 2021-05 0 00:00: 00 Yes [id number] 25mg Take 1 tablet by mouth every 6 (six) hours as needed for Nausea and Vomiting (N/V). [facility] methocarbam oL 500 mg tablet 2021-05 0-30 00:00: 00 Yes [id number] 500mg Take 1 tablet by mouth 3 (three) times daily as needed for Pain (scale 7-10). [facility] proMETHazin e 25 mg tablet 2021-05 0 00:00: 00 Yes [id number] 25mg Take 1 tablet by mouth every 6 (six) hours as needed for Nausea and Vomiting (N/V). [facility] methocarbam oL 500 mg tablet 2021-05 0 00:00: 00 Yes [id number] 500mg Take 1 tablet by mouth 3 (three) times daily as needed for Pain (scale 7-10). [facility] proMETHazin e 25 mg tablet 2021-05 0 00:00: 00 Yes [id number] 25mg Take 1 tablet by mouth every 6 (six) hours as needed for Nausea and Vomiting (N/V). [facility] methocarbam oL 500 mg tablet 2021-05 0 00:00: 00 Yes [id number] 500mg Take 1 tablet by mouth 3 (three) times daily as needed for Pain (scale 7-10). [facility] proMETHazin e 25 mg tablet 2021-05 0 00:00: 00 Yes [id number] 25mg Take 1 tablet by mouth every 6 (six) hours as needed for Nausea and Vomiting (N/V). [facility] methocarbam oL 500 mg tablet 2021-05 0 00:00: 00 Yes [id number] 500mg Take 1 tablet by mouth 3 (three) times daily as needed for Pain (scale 7-10). [facility] proMETHazin e 25 mg tablet 2021-05 0 00:00: 00 Yes [id number] 25mg Take 1 tablet by mouth every 6 (six) hours as needed for Nausea and Vomiting (N/V). [facility] methocarbam oL 500 mg tablet 2021-05 030 00:00: 00 Yes [id number] 500mg Take 1 tablet by mouth 3 (three) times daily as needed for Pain (scale 7-10). [facility] proMETHazin e 25 mg tablet 2021-05 0 00:00: 00 Yes [id number] 25mg Take 1 tablet by mouth every 6 (six) hours as needed for Nausea and Vomiting (N/V). [facility] proMETHazin e 25 mg tablet 2021-05 030 00:00: 00 Yes [id number] 25mg Take 1 tablet by mouth every 6 (six) hours as needed for Nausea and Vomiting (N/V). [facility] proMETHazin e 25 mg tablet 2021-05 030 00:00: 00 Yes [id number] 25mg Take 1 tablet by mouth every 6 (six) hours as needed for Nausea and Vomiting (N/V). [facility] proMETHazin e 25 mg tablet 2021-05 0 00:00: 00 Yes [id number] 25mg Take 1 tablet by mouth every 6 (six) hours as needed for Nausea and Vomiting (N/V). [facility] proMETHazin e 25 mg tablet 2021-05 0 00:00: 00 Yes [id number] 25mg Take 1 tablet by mouth every 6 (six) hours as needed for Nausea and Vomiting (N/V). [facility] proMETHazin e 25 mg tablet 2021-05 0 00:00: 00 Yes [id number] 25mg Take 1 tablet by mouth every 6 (six) hours as needed for Nausea and Vomiting (N/V). [facility] proMETHazin e 25 mg tablet 2021-05 030 00:00: 00 Yes [id number] 25mg Take 1 tablet by mouth every 6 (six) hours as needed for Nausea and Vomiting (N/V). [facility] proMETHazin e 25 mg tablet 2021-05 030 00:00: 00 Yes [id number] 25mg Take 1 tablet by mouth every 6 (six) hours as needed for Nausea and Vomiting (N/V). [facility] proMETHazin e 25 mg tablet 2021-05 0-30 00:00: 00 Yes [id number] 25mg Take 1 tablet by mouth every 6 (six) hours as needed for Nausea and Vomiting (N/V). [facility] proMETHazin e 25 mg tablet 2021-05 030 00:00: 00 Yes [id number] 25mg Take 1 tablet by mouth every 6 (six) hours as needed for Nausea and Vomiting (N/V). [facility] proMETHazin e 25 mg tablet 2021-05 0-30 00:00: 00 Yes [id number] 25mg Take 1 tablet by mouth every 6 (six) hours as needed for Nausea and Vomiting (N/V). [facility] proMETHazin e 25 mg tablet 2021-05 0 00:00: 00 Yes [id number] 25mg Take 1 tablet by mouth every 6 (six) hours as needed for Nausea and Vomiting (N/V). [facility] proMETHazin e 25 mg tablet 2021-05 0 00:00: 00 Yes [id number] 25mg Take 1 tablet by mouth every 6 (six) hours as needed for Nausea and Vomiting (N/V). [facility] proMETHazin e 25 mg tablet 2021-05 0 00:00: 00 Yes [id number] 25mg Take 1 tablet by mouth every 6 (six) hours as needed for Nausea and Vomiting (N/V). [facility] proMETHazin e 25 mg tablet 2021-05 0 00:00: 00 Yes [id number] 25mg Take 1 tablet by mouth every 6 (six) hours as needed for Nausea and Vomiting (N/V). [facility] proMETHazin e 25 mg tablet 2021-05 0 00:00: 00 Yes [id number] 25mg Take 1 tablet by mouth every 6 (six) hours as needed for Nausea and Vomiting (N/V). [facility] proMETHazin e 25 mg tablet 2021-05 030 00:00: 00 Yes [id number] 25mg Take 1 tablet by mouth every 6 (six) hours as needed for Nausea and Vomiting (N/V). [facility] proMETHazin e 25 mg tablet 2021-05 0 00:00: 00 07-31 00:00 :00 No [id number] 25mg Take 1 tablet by mouth every 6 (six) hours as needed for Nausea and Vomiting (N/V). [facility] methocarbam oL 500 mg tablet 2021-05 0-30 00:00: 00 04-07 00:00 :00 No [id number] 500mg Take 1 tablet by mouth 3 (three) times daily as needed for Pain (scale 7-10). [facility] topiramate 25 mg tablet 2021-05 0-21 00:00: 00 Yes [id number] 100mg Take 4 tablets by mouth in the morning. [facility] topiramate 25 mg tablet 2021- 0-21 00:00: 00 Yes [id number] 100mg Take 4 tablets by mouth in the morning. [facility] topiramate 25 mg tablet 2021- 0- 00:00: 00 Yes [id number] 100mg Take 4 tablets by mouth in the morning. [facility] topiramate 25 mg tablet 2021- 0 00:00: 00 Yes [id number] 100mg Take 4 tablets by mouth in the morning. [facility] topiramate 25 mg tablet 2021- 0 00:00: 00 Yes [id number] 100mg Take 4 tablets by mouth in the morning. [facility] topiramate 25 mg tablet 2021- 0 00:00: 00 Yes [id number] 100mg Take 4 tablets by mouth in the morning. [facility] topiramate 25 mg tablet 2021- 0 00:00: 00 Yes [id number] 100mg Take 4 tablets by mouth in the morning. [facility] topiramate 25 mg tablet 2021- 0- 00:00: 00 Yes [id number] 100mg Take 4 tablets by mouth in the morning. [facility] topiramate 25 mg tablet 2021-1 0- 00:00: 00 Yes [id number] 100mg Take 4 tablets by mouth in the morning. [facility] topiramate 25 mg tablet 2021- 0- 00:00: 00 Yes [id number] 100mg Take 4 tablets by mouth in the morning. [facility] topiramate 25 mg tablet 2021-1 0-21 00:00: 00 Yes [id number] 100mg Take 4 tablets by mouth in the morning. [facility] topiramate 25 mg tablet 2021-1 021 00:00: 00 Yes [id number] 100mg Take 4 tablets by mouth in the morning. [facility] topiramate 25 mg tablet 2021-1 0 00:00: 00 Yes [id number] 100mg Take 4 tablets by mouth in the morning. [facility] topiramate 25 mg tablet 2-1 0- 00:00: 00 Yes [id number] 100mg Take 4 tablets by mouth in the morning. [facility] topiramate 25 mg tablet 2021-1 0 00:00: 00 Yes [id number] 100mg Take 4 tablets by mouth in the morning. [facility] topiramate 25 mg tablet 2021-1 0 00:00: 00 Yes [id number] 100mg Take 4 tablets by mouth in the morning. [facility] topiramate 25 mg tablet 2-1 0 00:00: 00 Yes [id number] 100mg Take 4 tablets by mouth in the morning. [facility] topiramate 25 mg tablet 2021-1 0 00:00: 00 Yes [id number] 100mg Take 4 tablets by mouth in the morning. [facility] topiramate 25 mg tablet 2021-1 0 00:00: 00 Yes [id number] 100mg Take 4 tablets by mouth in the morning. [facility] topiramate 25 mg tablet 2-1 0 00:00: 00 Yes [id number] 100mg Take 4 tablets by mouth in the morning. [facility] topiramate 25 mg tablet 2021-1 0 00:00: 00 Yes [id number] 100mg Take 4 tablets by mouth in the morning. [facility] topiramate 25 mg tablet 2-1 0- 00:00: 00 Yes [id number] 100mg Take 4 tablets by mouth in the morning. [facility] topiramate 25 mg tablet 2-1 0-21 00:00: 00 Yes [id number] 100mg Take 4 tablets by mouth in the morning. [facility] topiramate 25 mg tablet 2-1 0-21 00:00: 00 Yes [id number] 100mg Take 4 tablets by mouth in the morning. [facility] topiramate 25 mg tablet 2021-1 0- 00:00: 00 Yes [id number] 100mg Take 4 tablets by mouth in the morning. [facility] topiramate 25 mg tablet 2021-1 0- 00:00: 00 Yes [id number] 100mg Take 4 tablets by mouth in the morning. [facility] topiramate 25 mg tablet 2021-1 0 00:00: 00 Yes [id number] 100mg Take 4 tablets by mouth in the morning. [facility] topiramate 25 mg tablet 2021-1 0 00:00: 00 Yes [id number] 100mg Take 4 tablets by mouth in the morning. [facility] topiramate 25 mg tablet 2021-1 0 00:00: 00 Yes [id number] 100mg Take 4 tablets by mouth in the morning. [facility] topiramate 25 mg tablet 2021-1 0 00:00: 00 Yes [id number] 100mg Take 4 tablets by mouth in the morning. [facility] topiramate 25 mg tablet 2021-1 0 00:00: 00 Yes [id number] 100mg Take 4 tablets by mouth in the morning. [facility] topiramate 25 mg tablet 2021-1 0 00:00: 00 Yes [id number] 100mg Take 4 tablets by mouth in the morning. [facility] topiramate 25 mg tablet 2021-1 0 00:00: 00 Yes [id number] 100mg Take 4 tablets by mouth in the morning. [facility] topiramate 25 mg tablet 2-1 0 00:00: 00 Yes [id number] 100mg Take 4 tablets by mouth in the morning. [facility] topiramate 25 mg tablet 2021-1 0- 00:00: 00 Yes [id number] 100mg Take 4 tablets by mouth in the morning. [facility] topiramate 25 mg tablet 2-1 0- 00:00: 00 Yes [id number] 100mg Take 4 tablets by mouth in the morning. [facility] topiramate 25 mg tablet 2021-1 021 00:00: 00 Yes [id number] 100mg Take 4 tablets by mouth in the morning. [facility] topiramate 25 mg tablet 2021-1 0 00:00: 00 Yes [id number] 100mg Take 4 tablets by mouth in the morning. [facility] topiramate 25 mg tablet 2-1 0- 00:00: 00 Yes [id number] 100mg Take 4 tablets by mouth in the morning. [facility] topiramate 25 mg tablet 2021-1 0 00:00: 00 Yes [id number] 100mg Take 4 tablets by mouth in the morning. [facility] topiramate 25 mg tablet 2021-1 0 00:00: 00 Yes [id number] 100mg Take 4 tablets by mouth in the morning. [facility] topiramate 25 mg tablet 2-1 0 00:00: 00 Yes [id number] 100mg Take 4 tablets by mouth in the morning. [facility] topiramate 25 mg tablet 2021-1 0 00:00: 00 Yes [id number] 100mg Take 4 tablets by mouth in the morning. [facility] topiramate 25 mg tablet 2021-1 0 00:00: 00 Yes [id number] 100mg Take 4 tablets by mouth in the morning. [facility] topiramate 25 mg tablet 2-1 0 00:00: 00 Yes [id number] 100mg Take 4 tablets by mouth in the morning. [facility] topiramate 25 mg tablet 2021-1 0 00:00: 00 Yes [id number] 100mg Take 4 tablets by mouth in the morning. [facility] topiramate 25 mg tablet 2-1 0- 00:00: 00 Yes [id number] 100mg Take 4 tablets by mouth in the morning. [facility] topiramate 25 mg tablet 2-1 0-21 00:00: 00 Yes [id number] 100mg Take 4 tablets by mouth in the morning. [facility] topiramate 25 mg tablet 2-1 0-21 00:00: 00 Yes [id number] 100mg Take 4 tablets by mouth in the morning. [facility] topiramate 25 mg tablet 2021-05 0- 00:00: 00 Yes [id number] 100mg Take 4 tablets by mouth in [...] mcg/actuati on inhaler 2021-05 00:00: 00 Yes [id number] 2{puff} Inhale 2 Puffs every 6 (six) hours as needed for Wheezing or Shortness of Breath. [facility] albuterol 90 mcg/actuati on inhaler 2021-05 00:00: 00 Yes [id number] 2{puff} Inhale 2 Puffs every 6 (six) hours as needed for Wheezing or Shortness of Breath. [facility] albuterol 90 mcg/actuati on inhaler 2021-05 0 00:00: 00 Yes [id number] 2{puff} Inhale 2 Puffs every 6 (six) hours as needed for Wheezing or Shortness of Breath. [facility] albuterol 90 mcg/actuati on inhaler 2021-05 018 00:00: 00 Yes [id number] 2{puff} Inhale 2 Puffs every 6 (six) hours as needed for Wheezing or Shortness of Breath. [facility] albuterol 90 mcg/actuati on inhaler 2021-05 0 00:00: 00 Yes [id number] 2{puff} Inhale 2 Puffs every 6 (six) hours as needed for Wheezing or Shortness of Breath. [facility] albuterol 90 mcg/actuati on inhaler 2021-05 018 00:00: 00 Yes [id number] 2{puff} Inhale 2 Puffs every 6 (six) hours as needed for Wheezing or Shortness of Breath. [facility] albuterol 90 mcg/actuati on inhaler 2021-05 018 00:00: 00 Yes [id number] 2{puff} Inhale 2 Puffs every 6 (six) hours as needed for Wheezing or Shortness of Breath. [facility] albuterol 90 mcg/actuati on inhaler 2021-05 018 00:00: 00 Yes [id number] 2{puff} Inhale 2 Puffs every 6 (six) hours as needed for Wheezing or Shortness of Breath. [facility] albuterol 90 mcg/actuati on inhaler 2021-05 018 00:00: 00 Yes [id number] 2{puff} Inhale 2 Puffs every 6 (six) hours as needed for Wheezing or Shortness of Breath. [facility] albuterol 90 mcg/actuati on inhaler 2021-05 018 00:00: 00 Yes [id number] 2{puff} Inhale 2 Puffs every 6 (six) hours as needed for Wheezing or Shortness of Breath. [facility] albuterol 90 mcg/actuati on inhaler 2021-05 018 00:00: 00 Yes [id number] 2{puff} Inhale 2 Puffs every 6 (six) hours as needed for Wheezing or Shortness of Breath. [facility] albuterol 90 mcg/actuati on inhaler 2021-05 0-18 00:00: 00 Yes [id number] 2{puff} Inhale 2 Puffs every 6 (six) hours as needed for Wheezing or Shortness of Breath. [facility] albuterol 90 mcg/actuati on inhaler 2021-05 018 00:00: 00 Yes [id number] 2{puff} Inhale 2 Puffs every 6 (six) hours as needed for Wheezing or Shortness of Breath. [facility] albuterol 90 mcg/actuati on inhaler 2021-05 018 00:00: 00 Yes [id number] 2{puff} Inhale 2 Puffs every 6 (six) hours as needed for Wheezing or Shortness of Breath. [facility] albuterol 90 mcg/actuati on inhaler 2021-05 018 00:00: 00 Yes [id number] 2{puff} Inhale 2 Puffs every 6 (six) hours as needed for Wheezing or Shortness of Breath. [facility] albuterol 90 mcg/actuati on inhaler 2021-05 018 00:00: 00 Yes [id number] 2{puff} Inhale 2 Puffs every 6 (six) hours as needed for Wheezing or Shortness of Breath. [facility] albuterol 90 mcg/actuati on inhaler 2021-05 0 00:00: 00 Yes [id number] 2{puff} Inhale 2 Puffs every 6 (six) hours as needed for Wheezing or Shortness of Breath. [facility] albuterol 90 mcg/actuati on inhaler 2021-05 018 00:00: 00 Yes [id number] 2{puff} Inhale 2 Puffs every 6 (six) hours as needed for Wheezing or Shortness of Breath. [facility] albuterol 90 mcg/actuati on inhaler 2021-05 018 00:00: 00 Yes [id number] 2{puff} Inhale 2 Puffs every 6 (six) hours as needed for Wheezing or Shortness of Breath. [facility] albuterol 90 mcg/actuati on inhaler 2021-05 018 00:00: 00 Yes [id number] 2{puff} Inhale 2 Puffs every 6 (six) hours as needed for Wheezing or Shortness of Breath. [facility] albuterol 90 mcg/actuati on inhaler 2021-05 018 00:00: 00 Yes [id number] 2{puff} Inhale 2 Puffs every 6 (six) hours as needed for Wheezing or Shortness of Breath. [facility] albuterol 90 mcg/actuati on inhaler 2021-05 018 00:00: 00 Yes [id number] 2{puff} Inhale 2 Puffs every 6 (six) hours as needed for Wheezing or Shortness of Breath. [facility] albuterol 90 mcg/actuati on inhaler 2021-05 018 00:00: 00 Yes [id number] 2{puff} Inhale 2 Puffs every 6 (six) hours as needed for Wheezing or Shortness of Breath. [facility] albuterol 90 mcg/actuati on inhaler 2021-05 018 00:00: 00 Yes [id number] 2{puff} Inhale 2 Puffs every 6 (six) hours as needed for Wheezing or Shortness of Breath. [facility] albuterol 90 mcg/actuati on inhaler 2021-05 018 00:00: 00 Yes [id number] 2{puff} Inhale 2 Puffs every 6 (six) hours as needed for Wheezing or Shortness of Breath. [facility] albuterol 90 mcg/actuati on inhaler 2021-05 018 00:00: 00 Yes [id number] 2{puff} Inhale 2 Puffs every 6 (six) hours as needed for Wheezing or Shortness of Breath. [facility] albuterol 90 mcg/actuati on inhaler 2021-05 018 00:00: 00 Yes [id number] 2{puff} Inhale 2 Puffs every 6 (six) hours as needed for Wheezing or Shortness of Breath. [facility] albuterol 90 mcg/actuati on inhaler 2021-05 018 00:00: 00 Yes [id number] 2{puff} Inhale 2 Puffs every 6 (six) hours as needed for Wheezing or Shortness of Breath. [facility] albuterol 90 mcg/actuati on inhaler 2021-05 018 00:00: 00 Yes [id number] 2{puff} Inhale 2 Puffs every 6 (six) hours as needed for Wheezing or Shortness of Breath. [facility] albuterol 90 mcg/actuati on inhaler 2021-05 0-18 00:00: 00 Yes [id number] 2{puff} Inhale 2 Puffs every 6 (six) hours as needed for Wheezing or Shortness of Breath. [facility] albuterol 90 mcg/actuati on inhaler 2021-05 0-18 00:00: 00 Yes [id number] 2{puff} Inhale 2 Puffs every 6 (six) hours as needed for Wheezing or Shortness of Breath. [facility] albuterol 90 mcg/actuati on inhaler 2021-05 0-18 00:00: 00 Yes [id number] 2{puff} Inhale 2 Puffs every 6 (six) hours as needed for Wheezing or Shortness of Breath. [facility] albuterol 90 mcg/actuati on inhaler 2021-05 0-18 00:00: 00 Yes [id number] 2{puff} Inhale 2 Puffs every 6 (six) hours as needed for Wheezing or Shortness of Breath. [facility] albuterol 90 mcg/actuati on inhaler 2021-05 0-18 00:00: 00 Yes [id number] 2{puff} Inhale 2 Puffs every 6 (six) hours as needed for Wheezing or Shortness of Breath. [facility] albuterol 90 mcg/actuati on inhaler 2021-05 0-18 00:00: 00 Yes [id number] 2{puff} Inhale 2 Puffs every 6 (six) hours as needed for Wheezing or Shortness of Breath. [facility] albuterol 90 mcg/actuati on inhaler 2021-05 0-18 00:00: 00 Yes [id number] 2{puff} Inhale 2 Puffs every 6 (six) hours as needed for Wheezing or Shortness of Breath. [facility] albuterol 90 mcg/actuati on inhaler 2021-05 0-18 00:00: 00 Yes [id number] 2{puff} Inhale 2 Puffs every 6 (six) hours as needed for Wheezing or Shortness of Breath. [facility] albuterol 90 mcg/actuati on inhaler 2021-05 0-18 00:00: 00 Yes [id number] 2{puff} Inhale 2 Puffs every 6 (six) hours as needed for Wheezing or Shortness of Breath. [facility] albuterol 90 mcg/actuati on inhaler 2021-05 018 00:00: 00 Yes [id number] 2{puff} Inhale 2 Puffs every 6 (six) hours as needed for Wheezing or Shortness of Breath. [facility] albuterol 90 mcg/actuati on inhaler 2021-05 0 00:00: 00 Yes [id number] 2{puff} Inhale 2 Puffs every 6 (six) hours as needed for Wheezing or Shortness of Breath. [facility] albuterol 90 mcg/actuati on inhaler 2021-05 0 00:00: 00 Yes [id number] 2{puff} Inhale 2 Puffs every 6 (six) hours as needed for Wheezing or Shortness of Breath. [facility] albuterol 90 mcg/actuati on inhaler 2021-05 0 00:00: 00 Yes [id number] 2{puff} Inhale 2 Puffs every 6 (six) hours as needed for Wheezing or Shortness of Breath. [facility] albuterol 90 mcg/actuati on inhaler 2021-05 0 00:00: 00 Yes [id number] 2{puff} Inhale 2 Puffs every 6 (six) hours as needed for Wheezing or Shortness of Breath. [facility] albuterol 90 mcg/actuati on inhaler 2021-05 018 00:00: 00 Yes [id number] 2{puff} Inhale 2 Puffs every 6 (six) hours as needed for Wheezing or Shortness of Breath. [facility] albuterol 90 mcg/actuati on inhaler 2021-05 018 00:00: 00 Yes [id number] 2{puff} Inhale 2 Puffs every 6 (six) hours as needed for Wheezing or Shortness of Breath. [facility] albuterol 90 mcg/actuati on inhaler 2021-05 018 00:00: 00 Yes [id number] 2{puff} Inhale 2 Puffs every 6 (six) hours as needed for Wheezing or Shortness of Breath. [facility] albuterol 90 mcg/actuati on inhaler 2021-05 018 00:00: 00 Yes [id number] 2{puff} Inhale 2 Puffs every 6 (six) hours as needed for Wheezing or Shortness of Breath. [facility] albuterol 90 mcg/actuati on inhaler 2021-05 018 00:00: 00 Yes [id number] 2{puff} Inhale 2 Puffs every 6 (six) hours as needed for Wheezing or Shortness of Breath. [facility] albuterol 90 mcg/actuati on inhaler 2021-05 018 00:00: 00 Yes [id number] 2{puff} Inhale 2 Puffs every 6 (six) hours as needed for Wheezing or Shortness of Breath. [facility] albuterol 90 mcg/actuati on inhaler 2021-05 018 00:00: 00 Yes [id number] 2{puff} Inhale 2 Puffs every 6 (six) hours as needed for Wheezing or Shortness of Breath. [facility] albuterol 90 mcg/actuati on inhaler 2021-05 018 00:00: 00 Yes [id number] 2{puff} Inhale 2 Puffs every 6 (six) hours as needed for Wheezing or Shortness of Breath. [facility] albuterol 90 mcg/actuati on inhaler 2021-05 018 00:00: 00 Yes [id number] 2{puff} Inhale 2 Puffs every 6 (six) hours as needed for Wheezing or Shortness of Breath. [facility] albuterol 90 mcg/actuati on inhaler 2021-05 0-18 00:00: 00 Yes [id number] 2{puff} Inhale 2 Puffs every 6 (six) hours as needed for Wheezing or Shortness of Breath. [facility] albuterol 90 mcg/actuati on inhaler 2021-05 018 00:00: 00 Yes [id number] 2{puff} Inhale 2 Puffs every 6 (six) hours as needed for Wheezing or Shortness of Breath. [facility] albuterol 90 mcg/actuati on inhaler 2021-05 018 00:00: 00 Yes [id number] 2{puff} Inhale 2 Puffs every 6 (six) hours as needed for Wheezing or Shortness of Breath. [facility] albuterol 90 mcg/actuati on inhaler 2021-0518 00:00: 00 Yes [id number] 2{puff} Inhale 2 Puffs every 6 (six) [...] 2021-05 00:00: 00 03-07 04:59 :00 No [id number] 200mg Take 1 capsule by mouth 3 (three) times daily as needed for Cough for up to 7 days. [facility] benzonatate 200 mg capsule 2021-05 00:00: 00 03-07 04:59 :00 No [id number] 200mg Take 1 capsule by mouth 3 (three) times daily as needed for Cough for up to 7 days. [facility] benzonatate 200 mg capsule 2021-0518 00:00: 00 03-07 04:59 :00 No [id number] 200mg Take 1 capsule by mouth 3 (three) times daily as needed for Cough for up to 7 days. [facility] benzonatate 200 mg capsule 2021-05 018 00:00: 00 03-07 04:59 :00 No [id number] 200mg Take 1 capsule by mouth 3 (three) times daily as needed for Cough for up to 7 days. [facility] benzonatate 200 mg capsule 2021-0518 00:00: 00 03-07 04:59 :00 No [id number] 200mg Take 1 capsule by mouth 3 (three) times daily as needed for Cough for up to 7 days. [facility] benzonatate 200 mg capsule 2021-05 00:00: 00 03-07 04:59 :00 No [id number] 200mg Take 1 capsule by mouth 3 (three) times daily as needed for Cough for up to 7 days. [facility] SUMAtriptan 50 mg tablet 2021-05 00:00: 00 02-28 04:59 :00 No [id number] 50mg Take 1 tablet by mouth once now for 1 dose. [facility] SUMAtriptan 50 mg tablet 2021-05 00:00: 00 02-28 04:59 :00 No [id number] 50mg Take 1 tablet by mouth [...] ONCE, 1 dose, On Sat02/21/22 at 0130, [facility] diphenhydrA MINE (BENADRYL) injection 25 [...] 2021-05 19:30: 00 02-18 17:30 :00 No [id number] 60mL 60 mL, Intravenou s, ONCE, 1 dose, On 02/18/22 at 1430, Routine [facility] proMETHazin e (PHENERGAN) 12.5 mg in NaCl 0.9% (NS) 50 mL IV piggyback 2021-05 18:15: 00 02-18 18:19 :00 No 12.5mg 12.5 mg, IV Piggyback, ONCE, 1 dose, On [place] 02/18/22 at 1315, [facility] FENTanyl PF (SUBLIMAZE (PF)) injection 50 mcg 2021-05 18:00: 00 02-18 17:26 :00 No 50ug 50 mcg, Slow IV Push, ONCE, 1 dose, On [place] 02/18/22 at 1300, Routine [facility] ondansetron (ZOFRAN (PF)) injection 4 mg 2021-05 17:15: 00 02-18 17:27 :00 No 4mg 4 mg, Slow IV Push, ONCE, 1 dose, On [place] 02/18/22 at 1215, [facility] morpHINE (2 mg/mL) injection 4 mg 01-18 15:15: 01-18 14:49 :00 No 4mg 4 mg, Slow IV Push, ONCE, 1 dose, On [place] 01/18/22 at 1015, STAT [facility] ondansetron (ZOFRAN (PF)) injection 4 mg 01-18 13:30: 00 01-18 13:33 :00 No 4mg 4 mg, Slow IV Push, ONCE, 1 dose, On [place] 01/18/22 at 0830, [facility] morpHINE (4 mg/mL) injection 4 [...] 1 dose, On [place] 01/[facility] 0630[facility] 4 mg 01-18 11:30: 00 01-18 10:52 :00 No 4mg 4 mg, Slow IV Push, ONCE, 1 dose, On [place] 01/18/22 at 0630, [facility] iodixanoL (VISIPAQUE 270-150 mL) injection 80 mL 01-18 11:21: 00 01-18 11:15 :00 No [id number] 80mL 80 mL, Intravenou s, ONCE, 1 dose, On [place] 01/18/22 at 0630, Routine [facility] NaCl 0.9% (NS) bolus infusion 1,000 mL 01-18 11:15: 00 01-18 12:59 :00 No 1000mL at 999 mL/hr, 1,000 mL, IV Infusion, ONCE, 1 dose, On [place] 01/18/22 at 0615, [facility] morpHINE (4 mg/mL) injection 4 [...] disintegrat ing tablet 01-18 00:00: 00 Yes [id number] 4mg Take 1 tablet by mouth every 8 (eight) hours as needed for Nausea and Vomiting (N/V). [facility] ibuprofen 600 mg tablet 01-18 00:00: 00 Yes [id number] 600mg Take 1 tablet by mouth every 6 (six) hours as needed for Pain (scale 4-6). [facility] traMADoL 50 mg tablet 01-18 00:00: 00 Yes [id number] 50mg Take 1 tablet by mouth every 6 (six) hours as needed for Pain (scale 7-10). Indication s: acute pain [facility] ondansetron 4 mg disintegrat ing tablet 01-18 00:00: 00 Yes [id number] 4mg Take 1 tablet by mouth every 8 (eight) hours as needed for Nausea and Vomiting (N/V). [facility] ibuprofen 600 mg tablet 01-18 00:00: 00 Yes [id number] 600mg Take 1 tablet by mouth every 6 (six) hours as needed for Pain (scale 4-6). [facility] traMADoL 50 mg tablet 01-18 00:00: 00 Yes [id number] 50mg Take 1 tablet by mouth every 6 (six) hours as needed for Pain (scale 7-10). Indication s: acute pain [facility] ondansetron 4 mg disintegrat ing tablet 01-18 00:00: 00 Yes [id number] 4mg Take 1 tablet by mouth every 8 (eight) hours as needed for Nausea and Vomiting (N/V). [facility] ibuprofen 600 mg tablet 01-18 00:00: 00 Yes [id number] 600mg Take 1 tablet by mouth every 6 (six) hours as needed for Pain (scale 4-6). [facility] traMADoL 50 mg tablet 0 01-18 00:00: 00 Yes [id number] 50mg Take 1 tablet by mouth every 6 (six) hours as needed for Pain (scale 7-10). Indication s: acute pain [facility] ondansetron 4 mg disintegrat ing tablet 01-18 00:00: 00 Yes [id number] 4mg Take 1 tablet by mouth every 8 (eight) hours as needed for Nausea and Vomiting (N/V). [facility] ibuprofen 600 mg tablet 2021-0 01-18 00:00: 00 Yes [id number] 600mg Take 1 tablet by mouth every 6 (six) hours as needed for Pain (scale 4-6). [facility] traMADoL 50 mg tablet 01-18 00:00: 00 Yes [id number] 50mg Take 1 tablet by mouth every 6 (six) hours as needed for Pain (scale 7-10). Indication s: acute pain [facility] ondansetron 4 mg disintegrat ing tablet 01-18 00:00: 00 Yes [id number] 4mg Take 1 tablet by mouth every 8 (eight) hours as needed for Nausea and Vomiting (N/V). [facility] ibuprofen 600 mg tablet 01-18 00:00: 00 Yes [id number] 600mg Take 1 tablet by mouth every 6 (six) hours as needed for Pain (scale 4-6). [facility] traMADoL 50 mg tablet 01-18 00:00: 00 Yes [id number] 50mg Take 1 tablet by mouth every 6 (six) hours as needed for Pain (scale 7-10). Indication s: acute pain [facility] ondansetron 4 mg disintegrat ing tablet 01-18 00:00: 00 Yes [id number] 4mg Take 1 tablet by mouth every 8 (eight) hours as needed for Nausea and Vomiting (N/V). [facility] ibuprofen 600 mg tablet 01-18 00:00: 00 Yes [id number] 600mg Take 1 tablet by mouth every 6 (six) hours as needed for Pain (scale 4-6). [facility] traMADoL 50 mg tablet 01-18 00:00: 00 Yes [id number] 50mg Take 1 tablet by mouth every 6 (six) hours as needed for Pain (scale 7-10). Indication s: acute pain [facility] ondansetron 4 mg disintegrat ing tablet 01-18 00:00: 00 Yes [id number] 4mg Take 1 tablet by mouth every 8 (eight) hours as needed for Nausea and Vomiting (N/V). [facility] ibuprofen 600 mg tablet 01-18 00:00: 00 Yes [id number] 600mg Take 1 tablet by mouth every 6 (six) hours as needed for Pain (scale 4-6). [facility] traMADoL 50 mg tablet 01-18 00:00: 00 Yes [id number] 50mg Take 1 tablet by mouth every 6 (six) hours as needed for Pain (scale 7-10). Indication s: acute pain [facility] ondansetron 4 mg disintegrat ing tablet 01-18 00:00: 00 Yes [id number] 4mg Take 1 tablet by mouth every 8 (eight) hours as needed for Nausea and Vomiting (N/V). [facility] ibuprofen 600 mg tablet 01-18 00:00: 00 Yes [id number] 600mg Take 1 tablet by mouth every 6 (six) hours as needed for Pain (scale 4-6). [facility] traMADoL 50 mg tablet 01-18 00:00: 00 02-27 00:00 :00 No [id number] 50mg Take 1 tablet by mouth every 6 (six) hours as needed for Pain (scale 7-10). Indication s: acute pain [facility] ondansetron 4 mg disintegrat ing tablet 01-18 00:00: 00 02-27 00:00 :00 No [id number] 4mg Take 1 tablet by mouth every 8 (eight) hours as needed for Nausea and Vomiting (N/V). [facility] ibuprofen 600 mg tablet 01-18 00:00: 00 02-27 00:00 :00 No [id number] 600mg Take 1 tablet by mouth every 6 (six) hours as needed for Pain (scale 4-6). [facility] traMADoL 50 mg tablet 01-18 00:00: 00 02-27 00:00 :00 No [id number] 50mg Take 1 tablet by mouth every 6 (six) hours as needed for Pain (scale 7-10). Indication s: acute pain [facility] ondansetron 4 mg disintegrat ing tablet -08 00:00: 02-27 00:00 :00 No [id number] 4mg Take 1 tablet by mouth every 8 (eight) hours as needed for Nausea and Vomiting (N/V). [facility] ibuprofen 600 mg tablet 01-18 00:00: 00 02-27 00:00 :00 No [id number] 600mg Take 1 tablet by mouth every 6 (six) hours as needed for Pain (scale 4-6). [facility] traMADoL 50 mg tablet 01-18 00:00: 00 02-27 00:00 :00 No [id number] 50mg Take 1 tablet by mouth every 6 (six) hours as needed for Pain (scale 7-10). Indication s: acute pain [facility] ondansetron 4 mg disintegrat ing tablet 01-18 00:00: 00 02-27 00:00 :00 No [id number] 4mg Take 1 tablet by mouth every 8 (eight) hours as needed for Nausea and Vomiting (N/V). [facility] ibuprofen 600 mg tablet 01-18 00:00: 00 02-27 00:00 :00 No [id number] 600mg Take 1 tablet by mouth every 6 (six) hours as needed for Pain (scale 4-6). [facility] traMADoL 50 mg tablet 01-18 00:00: 00 02-27 00:00 :00 No [id number] 50mg Take 1 tablet by mouth every 6 (six) hours as needed for Pain (scale 7-10). Indication s: acute pain [facility] ondansetron 4 mg disintegrat ing tablet 01-18 00:00: 00 02-27 00:00 :00 No [id number] 4mg Take 1 tablet by mouth every 8 (eight) hours as needed for Nausea and Vomiting (N/V). [facility] ibuprofen 600 mg tablet 01-18 00:00: 00 02-27 00:00 :00 No [id number] 600mg Take 1 tablet by mouth every 6 (six) hours as needed for Pain (scale 4-6). [facility] predniSONE 20 mg tablet 01-16 00:00: 00 01-24 04:59 :00 No [id number] 40mg Take 2 tablets by mouth in the morning for 7 days. [facility] predniSONE 20 mg tablet 01-16 00:00: 01-24 04:59 :00 No [id number] 40mg Take 2 tablets by mouth in the morning for 7 days. [facility] morpHINE (4 mg/mL) injection 4 mg 01-15 16:15: 00 01-15 15:28 :00 No 4mg 4 mg, Slow IV Push, ONCE, 1 dose, On Sat01/15/22 at 1115, [facility] proMETHazin e (PHENERGAN) 12.5 mg in NaCl 0.9% (NS) 50 mL IV piggyback 01-15 15:30: 00 01-15 15:28 :00 No 12.5mg 12.5 mg, IV Piggyback, ONCE, 1 dose, On Sat01/15/22 at 1030, [facility] NaCl 0.9% (NS) bolus infusion 1,000 mL 01-15 15:00: 00 01-15 15:38 :00 No 1000mL at 999 mL/hr, 1,000 mL, IV Infusion, ONCE, 1 dose, On Sat01/15/22 at 1000, [facility] morpHINE (4 mg/mL) injection 4 mg 01-15 15:00: 00 01-15 14:37 :00 No 4mg 4 mg, Slow IV Push, ONCE, 1 dose, On Sat01/15/22 at 1000, [facility] ondansetron (ZOFRAN (PF)) injection 8 mg [...] 25 mg tablet 01-15 00:00: 00 Yes [id number] 25mg Take 1 tablet by mouth every 6 (six) hours as needed for Nausea and Vomiting (N/V). [facility] proMETHazin e 25 mg tablet 01-15 00:00: 00 Yes [id number] 25mg Take 1 tablet by mouth every 6 (six) hours as needed for Nausea and Vomiting (N/V). [facility] proMETHazin e 25 mg tablet 01-15 00:00: 00 Yes [id number] 25mg Take 1 tablet by mouth every 6 (six) hours as needed for Nausea and Vomiting (N/V). [facility] proMETHazin e 25 mg tablet 01-15 00:00: 00 Yes [id number] 25mg Take 1 tablet by mouth every 6 (six) hours as needed for Nausea and Vomiting (N/V). [facility] proMETHazin e 25 mg tablet 01-15 00:00: 00 Yes [id number] 25mg Take 1 tablet by mouth every 6 (six) hours as needed for Nausea and Vomiting (N/V). [facility] proMETHazin e 25 mg tablet 01-15 00:00: 00 Yes [id number] 25mg Take 1 tablet by mouth every 6 (six) hours as needed for Nausea and Vomiting (N/V). [facility] proMETHazin e 25 mg tablet 01-15 00:00: 00 Yes [id number] 25mg Take 1 tablet by mouth every 6 (six) hours as needed for Nausea and Vomiting (N/V). [facility] proMETHazin e 25 mg tablet 01-15 00:00: 00 Yes [id number] 25mg Take 1 tablet by mouth every 6 (six) hours as needed for Nausea and Vomiting (N/V). [facility] proMETHazin e 25 mg tablet 01-15 00:00: 00 Yes [id number] 25mg Take 1 tablet by mouth every 6 (six) hours as needed for Nausea and Vomiting (N/V). [facility] proMETHazin e 25 mg tablet 01-15 00:00: 00 02-27 00:00 :00 No [id number] 25mg Take 1 tablet by mouth every 6 (six) hours as needed for Nausea and Vomiting (N/V). [facility] proMETHazin e 25 mg tablet 01-15 00:00: 00 02-27 00:00 :00 No [id number] 25mg Take 1 tablet by mouth every 6 (six) hours as needed for Nausea and Vomiting (N/V). [facility] proMETHazin e 25 mg tablet 01-15 00:00: 00 02-27 00:00 :00 No [id number] 25mg Take 1 tablet by mouth every 6 (six) hours as needed for Nausea and Vomiting (N/V). [facility] proMETHazin e 25 mg tablet 01-15 00:00: 00 02-27 00:00 :00 No [id number] 25mg Take 1 tablet by mouth every [...] disintegrat ing tablet 01-08 00:00: 00 Yes [id number] 4mg Take 1 tablet by mouth every 8 (eight) hours as needed for Nausea and Vomiting (N/V). [facility] acetaminoph en (TYLENOL ARTHRITIS PAIN) 650 mg CR tablet 01-08 00:00: 00 Yes [id number] 650mg Take 1 tablet by mouth every 8 (eight) hours as needed for Pain. [facility] ketorolac 10 mg tablet 01-08 00:00: 00 Yes [id number] 10mg Take 1 tablet by mouth every 6 (six) hours as needed for Pain (scale 4-6) or Pain (scale 7-10). [facility] metaxalone (SKELAXIN) 800 mg tablet 01-08 00:00: 00 Yes [id number] 800mg Take 1 tablet by mouth in the morning and 1 tablet at noon and 1 tablet in the evening. [facility] ondansetron 4 mg disintegrat ing tablet 01-08 00:00: 00 Yes [id number] 4mg Take 1 tablet by mouth every 8 (eight) hours as needed for Nausea and Vomiting (N/V). [facility] acetaminoph en (TYLENOL ARTHRITIS PAIN) 650 mg CR tablet 01-08 00:00: 00 Yes [id number] 650mg Take 1 tablet by mouth every 8 (eight) hours as needed for Pain. [facility] ketorolac 10 mg tablet 01-08 00:00: 00 Yes [id number] 10mg Take 1 tablet by mouth every 6 (six) hours as needed for Pain (scale 4-6) or Pain (scale 7-10). [facility] metaxalone (SKELAXIN) 800 mg tablet 01-08 00:00: 00 Yes [id number] 800mg Take 1 tablet by mouth in the morning and 1 tablet at noon and 1 tablet in the evening. [facility] ondansetron 4 mg disintegrat ing tablet 01-08 00:00: 00 Yes [id number] 4mg Take 1 tablet by mouth every 8 (eight) hours as needed for Nausea and Vomiting (N/V). [facility] acetaminoph en (TYLENOL ARTHRITIS PAIN) 650 mg CR tablet 01-08 00:00: 00 Yes [id number] 650mg Take 1 tablet by mouth every 8 (eight) hours as needed for Pain. [facility] ketorolac 10 mg tablet 01-08 00:00: 00 Yes [id number] 10mg Take 1 tablet by mouth every 6 (six) hours as needed for Pain (scale 4-6) or Pain (scale 7-10). [facility] metaxalone (SKELAXIN) 800 mg tablet 01-08 00:00: 00 Yes [id number] 800mg Take 1 tablet by mouth in the morning and 1 tablet at noon and 1 tablet in the evening. [facility] ondansetron 4 mg disintegrat ing tablet 01-08 00:00: 00 Yes [id number] 4mg Take 1 tablet by mouth every 8 (eight) hours as needed for Nausea and Vomiting (N/V). [facility] acetaminoph en (TYLENOL ARTHRITIS PAIN) 650 mg CR tablet 01-08 00:00: 00 Yes [id number] 650mg Take 1 tablet by mouth every 8 (eight) hours as needed for Pain. [facility] ketorolac 10 mg tablet 01-08 00:00: 00 Yes [id number] 10mg Take 1 tablet by mouth every 6 (six) hours as needed for Pain (scale 4-6) or Pain (scale 7-10). [facility] metaxalone (SKELAXIN) 800 mg tablet 01-08 00:00: 00 Yes [id number] 800mg Take 1 tablet by mouth in the morning and 1 tablet at noon and 1 tablet in the evening. [facility] ondansetron 4 mg disintegrat ing tablet 01-08 00:00: 00 Yes [id number] 4mg Take 1 tablet by mouth every 8 (eight) hours as needed for Nausea and Vomiting (N/V). [facility] acetaminoph en (TYLENOL ARTHRITIS PAIN) 650 mg CR tablet 01-08 00:00: 00 Yes [id number] 650mg Take 1 tablet by mouth every 8 (eight) hours as needed for Pain. [facility] ketorolac 10 mg tablet 01-08 00:00: 00 Yes [id number] 10mg Take 1 tablet by mouth every 6 (six) hours as needed for Pain (scale 4-6) or Pain (scale 7-10). [facility] metaxalone (SKELAXIN) 800 mg tablet 01-08 00:00: 00 Yes [id number] 800mg Take 1 tablet by mouth in the morning and 1 tablet at noon and 1 tablet in the evening. [facility] ondansetron 4 mg disintegrat ing tablet 01-08 00:00: 00 Yes [id number] 4mg Take 1 tablet by mouth every 8 (eight) hours as needed for Nausea and Vomiting (N/V). [facility] acetaminoph en (TYLENOL ARTHRITIS PAIN) 650 mg CR tablet 01-08 00:00: 00 Yes [id number] 650mg Take 1 tablet by mouth every 8 (eight) hours as needed for Pain. [facility] ketorolac 10 mg tablet 01-08 00:00: 00 Yes [id number] 10mg Take 1 tablet by mouth every 6 (six) hours as needed for Pain (scale 4-6) or Pain (scale 7-10). [facility] metaxalone (SKELAXIN) 800 mg tablet 01-08 00:00: 00 Yes [id number] 800mg Take 1 tablet by mouth in the morning and 1 tablet at noon and 1 tablet in the evening. [facility] ondansetron 4 mg disintegrat ing tablet 01-08 00:00: 00 Yes [id number] 4mg Take 1 tablet by mouth every 8 (eight) hours as needed for Nausea and Vomiting (N/V). [facility] acetaminoph en (TYLENOL ARTHRITIS PAIN) 650 mg CR tablet 01-08 00:00: 00 Yes [id number] 650mg Take 1 tablet by mouth every 8 (eight) hours as needed for Pain. [facility] ketorolac 10 mg tablet 01-08 00:00: 00 Yes [id number] 10mg Take 1 tablet by mouth every 6 (six) hours as needed for Pain (scale 4-6) or Pain (scale 7-10). [facility] metaxalone (SKELAXIN) 800 mg tablet 01-08 00:00: 00 Yes [id number] 800mg Take 1 tablet by mouth in the morning and 1 tablet at noon and 1 tablet in the evening. [facility] ondansetron 4 mg disintegrat ing tablet 01-08 00:00: 00 Yes [id number] 4mg Take 1 tablet by mouth every 8 (eight) hours as needed for Nausea and Vomiting (N/V). [facility] acetaminoph en (TYLENOL ARTHRITIS PAIN) 650 mg CR tablet 01-08 00:00: 00 Yes [id number] 650mg Take 1 tablet by mouth every 8 (eight) hours as needed for Pain. [facility] ketorolac 10 mg tablet 01-08 00:00: 00 Yes [id number] 10mg Take 1 tablet by mouth every 6 (six) hours as needed for Pain (scale 4-6) or Pain (scale 7-10). [facility] metaxalone (SKELAXIN) 800 mg tablet 01-08 00:00: 00 Yes [id number] 800mg Take 1 tablet by mouth in the morning and 1 tablet at noon and 1 tablet in the evening. [facility] ondansetron 4 mg disintegrat ing tablet 01-08 00:00: 00 Yes [id number] 4mg Take 1 tablet by mouth every 8 (eight) hours as needed for Nausea and Vomiting (N/V). [facility] acetaminoph en (TYLENOL ARTHRITIS PAIN) 650 mg CR tablet 01-08 00:00: 00 Yes [id number] 650mg Take 1 tablet by mouth every 8 (eight) hours as needed for Pain. [facility] ketorolac 10 mg tablet 01-08 00:00: 00 Yes [id number] 10mg Take 1 tablet by mouth every 6 (six) hours as needed for Pain (scale 4-6) or Pain (scale 7-10). [facility] metaxalone (SKELAXIN) 800 mg tablet 01-08 00:00: 00 Yes [id number] 800mg Take 1 tablet by mouth in the morning and 1 tablet at noon and 1 tablet in the evening. [facility] ondansetron 4 mg disintegrat ing tablet 01-08 00:00: 00 Yes [id number] 4mg Take 1 tablet by mouth every 8 (eight) hours as needed for Nausea and Vomiting (N/V). [facility] acetaminoph en (TYLENOL ARTHRITIS PAIN) 650 mg CR tablet 01-08 00:00: 00 Yes [id number] 650mg Take 1 tablet by mouth every 8 (eight) hours as needed for Pain. [facility] ketorolac 10 mg tablet 01-08 00:00: 00 Yes [id number] 10mg Take 1 tablet by mouth every 6 (six) hours as needed for Pain (scale 4-6) or Pain (scale 7-10). [facility] metaxalone (SKELAXIN) 800 mg tablet 01-08 00:00: 00 Yes [id number] 800mg Take 1 tablet by mouth in the morning and 1 tablet at noon and 1 tablet in the evening. [facility] acetaminoph en (TYLENOL ARTHRITIS PAIN) 650 mg CR tablet 01-08 00:00: 00 Yes [id number] 650mg Take 1 tablet by mouth every 8 (eight) hours as needed for Pain. [facility] acetaminoph en (TYLENOL ARTHRITIS PAIN) 650 mg CR tablet 01-08 00:00: 00 Yes [id number] 650mg Take 1 tablet by mouth every 8 (eight) hours as needed for Pain. [facility] acetaminoph en (TYLENOL ARTHRITIS PAIN) 650 mg CR tablet 01-08 00:00: 00 Yes [id number] 650mg Take 1 tablet by mouth every 8 (eight) hours as needed for Pain. [facility] acetaminoph en (TYLENOL ARTHRITIS PAIN) 650 mg CR tablet 01-08 00:00: 00 Yes [id number] 650mg Take 1 tablet by mouth every 8 (eight) hours as needed for Pain. [facility] acetaminoph en (TYLENOL ARTHRITIS PAIN) 650 mg CR tablet 01-08 00:00: 00 Yes [id number] 650mg Take 1 tablet by mouth every 8 (eight) hours as needed for Pain. [facility] acetaminoph en (TYLENOL ARTHRITIS PAIN) 650 mg CR tablet 01-08 00:00: 00 Yes [id number] 650mg Take 1 tablet by mouth every 8 (eight) hours as needed for Pain. [facility] acetaminoph en (TYLENOL ARTHRITIS PAIN) 650 mg CR tablet 01-08 00:00: 00 Yes [id number] 650mg Take 1 tablet by mouth every 8 (eight) hours as needed for Pain. [facility] acetaminoph en (TYLENOL ARTHRITIS PAIN) 650 mg CR tablet 01-08 00:00: 00 Yes [id number] 650mg Take 1 tablet by mouth every 8 (eight) hours as needed for Pain. [facility] acetaminoph en (TYLENOL ARTHRITIS PAIN) 650 mg CR tablet 01-08 00:00: 00 Yes [id number] 650mg Take 1 tablet by mouth every 8 (eight) hours as needed for Pain. [facility] acetaminoph en (TYLENOL ARTHRITIS PAIN) 650 mg CR tablet 01-08 00:00: 00 Yes [id number] 650mg Take 1 tablet by mouth every 8 (eight) hours as needed for Pain. [facility] acetaminoph en (TYLENOL ARTHRITIS PAIN) 650 mg CR tablet 01-08 00:00: 00 Yes [id number] 650mg Take 1 tablet by mouth every 8 (eight) hours as needed for Pain. [facility] acetaminoph en (TYLENOL ARTHRITIS PAIN) 650 mg CR tablet 01-08 00:00: 00 Yes [id number] 650mg Take 1 tablet by mouth every 8 (eight) hours as needed for Pain. [facility] acetaminoph en (TYLENOL ARTHRITIS PAIN) 650 mg CR tablet 01-08 00:00: 00 Yes [id number] 650mg Take 1 tablet by mouth every 8 (eight) hours as needed for Pain. [facility] acetaminoph en (TYLENOL ARTHRITIS PAIN) 650 mg CR tablet 01-08 00:00: 00 Yes [id number] 650mg Take 1 tablet by mouth every 8 (eight) hours as needed for Pain. [facility] acetaminoph en (TYLENOL ARTHRITIS PAIN) 650 mg CR tablet 01-08 00:00: 00 Yes [id number] 650mg Take 1 tablet by mouth every 8 (eight) hours as needed for Pain. [facility] acetaminoph en (TYLENOL ARTHRITIS PAIN) 650 mg CR tablet 01-08 00:00: 00 Yes [id number] 650mg Take 1 tablet by mouth every 8 (eight) hours as needed for Pain. [facility] acetaminoph en (TYLENOL ARTHRITIS PAIN) 650 mg CR tablet 01-08 00:00: 00 Yes [id number] 650mg Take 1 tablet by mouth every 8 (eight) hours as needed for Pain. [facility] acetaminoph en (TYLENOL ARTHRITIS PAIN) 650 mg CR tablet 01-08 00:00: 00 04-07 00:00 :00 No [id number] 650mg Take 1 tablet by mouth every 8 (eight) hours as needed for Pain. [facility] ondansetron 4 mg disintegrat ing tablet 01-08 00:00: 00 02-27 00:00 :00 No [id number] 4mg Take 1 tablet by mouth every 8 (eight) hours as needed for Nausea and Vomiting (N/V). [facility] ketorolac 10 mg tablet 01-08 00:00: 00 02-27 00:00 :00 No [id number] 10mg Take 1 tablet by mouth every 6 (six) hours as needed for Pain (scale 4-6) or Pain (scale 7-10). [facility] metaxalone (SKELAXIN) 800 mg tablet 01-08 00:00: 00 02-27 00:00 :00 No [id number] 800mg Take 1 tablet by mouth in the morning and 1 tablet at noon and 1 tablet in the evening. [facility] ondansetron 4 mg disintegrat ing tablet 01-08 00:00: 00 02-27 00:00 :00 No [id number] 4mg Take 1 tablet by mouth every 8 (eight) hours as needed for Nausea and Vomiting (N/V). [facility] ketorolac 10 mg tablet 01-08 00:00: 00 02-27 00:00 :00 No [id number] 10mg Take 1 tablet by mouth every 6 (six) hours as needed for Pain (scale 4-6) or Pain (scale 7-10). [facility] metaxalone (SKELAXIN) 800 mg tablet 01-08 00:00: 00 02-27 00:00 :00 No [id number] 800mg Take 1 tablet by mouth in the morning and 1 tablet at noon and 1 tablet in the evening. [facility] ondansetron 4 mg disintegrat ing tablet 01-08 00:00: 00 02-27 00:00 :00 No [id number] 4mg Take 1 tablet by mouth every 8 (eight) hours as needed for Nausea and Vomiting (N/V). [facility] ketorolac 10 mg tablet 01-08 00:00: 00 02-27 00:00 :00 No [id number] 10mg Take 1 tablet by mouth every 6 (six) hours as needed for Pain (scale 4-6) or Pain (scale 7-10). [facility] metaxalone (SKELAXIN) 800 mg tablet 01-08 00:00: 00 02-27 00:00 :00 No [id number] 800mg Take 1 tablet by mouth in the morning and 1 tablet at noon and 1 tablet in the evening. [facility] ondansetron 4 mg disintegrat ing tablet 01-08 00:00: 00 02-27 00:00 :00 No [id number] 4mg Take 1 tablet by mouth every 8 (eight) hours as needed for Nausea and Vomiting (N/V). [facility] ketorolac 10 mg tablet 01-08 00:00: 00 02-27 00:00 :00 No [id number] 10mg Take 1 tablet by mouth every 6 (six) hours as needed for Pain (scale 4-6) or Pain (scale 7-10). [facility] metaxalone (SKELAXIN) 800 mg tablet 01-08 00:00: 00 02-27 00:00 :00 No [id number] 800mg Take 1 tablet by mouth in [...] Hospital ALBUTEROL INHALE 12-12 13:03: 04 Yes [facility] diphenhydrA MINE 25 mg capsule 12-12 13:03: [...] Yes Take by mouth. [facility] citalopram hydrobromid e (CITALOPRAM ORAL) 12-12 13:03: 04 Yes Take by mouth. [facility] ALBUTEROL INHALE 0 12-12 13:03: 04 Yes [facility] diphenhydrA MINE 25 mg capsule 12-12 13:03: 04 Yes 25mg Take 25 mg by mouth every 6 (six) hours as needed for Allergies. [facility] carbamazepi ne (TEGRETOL ORAL) 12-12 13:03: 04 Yes Take by mouth. [facility] citalopram hydrobromid e (CITALOPRAM ORAL) 12-12 13:03: 04 Yes Take by mouth. [facility] ALBUTEROL INHALE 0 12-12 13:03: 04 Yes [facility] ALBUTEROL INHALE 0 12-12 13:03: 04 Yes [facility] ALBUTEROL INHALE 0 12-12 13:03: 04 Yes [facility] ALBUTEROL INHALE 0 12-12 13:03: 04 Yes [facility] ALBUTEROL INHALE 0 12-12 13:03: 04 Yes [facility] ALBUTEROL INHALE 0 12-12 13:03: 04 Yes [facility] ALBUTEROL INHALE 0 12-12 13:03: 04 Yes [facility] ALBUTEROL INHALE 0 12-12 13:03: 04 Yes [facility] ALBUTEROL INHALE 0 12-12 13:03: 04 Yes [facility] ALBUTEROL INHALE 0 12-12 13:03: 04 Yes [facility] ALBUTEROL INHALE 0 8 13:03: 04 Yes [facility] ALBUTEROL INHALE 0 12-12 13:03: 04 Yes [facility] ALBUTEROL INHALE 2021-0 12-12 13:03: 04 Yes [facility] ALBUTEROL INHALE 2021-0 12-12 13:03: 04 Yes [facility] ALBUTEROL INHALE 2021-0 12-12 13:03: 04 Yes [facility] traZODone 50 mg tablet 0 12-12 00:00: 00 Yes [id number] 50mg Take 1 tablet by mouth at bedtime. [facility] SERTraline (ZOLOFT) 50 mg tablet 0 12-12 00:00: 00 Yes [id number] 50mg Take 1 tablet by mouth in the morning. [facility] traZODone 50 mg tablet 0 12-12 00:00: 00 Yes [id number] 50mg Take 1 tablet by mouth at bedtime. [facility] SERTraline (ZOLOFT) 50 mg tablet 2021-0 12-12 00:00: 00 Yes [id number] 50mg Take 1 tablet by mouth in the morning. [facility] traZODone 50 mg tablet 2021-0 12-12 00:00: 00 Yes [id number] 50mg Take 1 tablet by mouth at bedtime. [facility] SERTraline (ZOLOFT) 50 mg tablet 2021-0 12-12 00:00: 00 Yes [id number] 50mg Take 1 tablet by mouth in the morning. [facility] traZODone 50 mg tablet 2021-0 12-12 00:00: 00 Yes [id number] 50mg Take 1 tablet by mouth at bedtime. [facility] SERTraline (ZOLOFT) 50 mg tablet 2021-0 12-12 00:00: 00 Yes [id number] 50mg Take 1 tablet by mouth in the morning. [facility] traZODone 50 mg tablet 2021-0 12-12 00:00: 00 Yes [id number] 50mg Take 1 tablet by mouth at bedtime. [facility] SERTraline (ZOLOFT) 50 mg tablet 2021-0 - 00:00: 00 Yes [id number] 50mg Take 1 tablet by mouth in the morning. [facility] traZODone 50 mg tablet 2021-0 8- 00:00: 00 Yes [id number] 50mg Take 1 tablet by mouth at bedtime. [facility] SERTraline (ZOLOFT) 50 mg tablet 2021-0 8- 00:00: 00 Yes [id number] 50mg Take 1 tablet by mouth in the morning. [facility] traZODone 50 mg tablet 2021-0 8- 00:00: 00 Yes [id number] 50mg Take 1 tablet by mouth at bedtime. [facility] SERTraline (ZOLOFT) 50 mg tablet 2021-0 8- 00:00: 00 Yes [id number] 50mg Take 1 tablet by mouth in the morning. [facility] traZODone 50 mg tablet 2021-0 8- 00:00: 00 Yes [id number] 50mg Take 1 tablet by mouth at bedtime. [facility] SERTraline (ZOLOFT) 50 mg tablet 2021-0 12-12 00:00: 00 Yes [id number] 50mg Take 1 tablet by mouth in the morning. [facility] traZODone 50 mg tablet 2021-0 8- 00:00: 00 Yes [id number] 50mg Take 1 tablet by mouth at bedtime. [facility] SERTraline (ZOLOFT) 50 mg tablet 2021-0 - 00:00: 00 Yes [id number] 50mg Take 1 tablet by mouth in the morning. [facility] traZODone 50 mg tablet 2021-0 8- 00:00: 00 Yes [id number] 50mg Take 1 tablet by mouth at bedtime. [facility] SERTraline (ZOLOFT) 50 mg tablet 2021-0 8- 00:00: 00 Yes [id number] 50mg Take 1 tablet by mouth in the morning. [facility] traZODone 50 mg tablet 2021-0 8-02 00:00: 00 Yes [id number] 50mg Take 1 tablet by mouth at bedtime. [facility] SERTraline (ZOLOFT) 50 mg tablet 12-12 00:00: 00 Yes [id number] 50mg Take 1 tablet by mouth in the morning. [facility] traZODone 50 mg tablet 12-12 00:00: 00 02-27 00:00 :00 No [id number] 50mg Take 1 tablet by mouth at bedtime. [facility] SERTraline (ZOLOFT) 50 mg tablet 12-12 00:00: 00 02-27 00:00 :00 No [id number] 50mg Take 1 tablet by mouth in the morning. [facility] traZODone 50 mg tablet 12-12 00:00: 00 02-27 00:00 :00 No [id number] 50mg Take 1 tablet by mouth at bedtime. [facility] SERTraline (ZOLOFT) 50 mg tablet 12-12 00:00: 00 02-27 00:00 :00 No [id number] 50mg Take 1 tablet by mouth in the morning. [facility] traZODone 50 mg tablet 12-12 00:00: 00 02-27 00:00 :00 No [id number] 50mg Take 1 tablet by mouth at bedtime. [facility] SERTraline (ZOLOFT) 50 mg tablet 12-12 00:00: 00 02-27 00:00 :00 No [id number] 50mg Take 1 tablet by mouth in the morning. [facility] traZODone 50 mg tablet 12-12 00:00: 00 02-27 00:00 :00 No [id number] 50mg Take 1 tablet by mouth at bedtime. [facility] SERTraline (ZOLOFT) 50 mg tablet - 00:00: 00 02-27 00:00 :00 No [id number] 50mg Take 1 tablet by mouth in the morning. [facility] sulfamethox azole-trime thoprim (BACTRIM DS) 800-160 mg per tablet 8-02 00:00: 00 12-16 04:59 :00 No [id number] 1{tbl} Take 1 tablet by mouth in the morning and 1 tablet in the evening. Do all this for 3 days. [facility] 0 7-15 00:00: 00 Yes [id number] 600mg Take 1 tablet by mouth every 6 (six) hours as needed for Pain (scale 4-6). [facility] ibuprofen 600 mg tablet 0 7-15 00:00: 00 Yes [id number] 600mg Take 1 tablet by mouth every 6 (six) hours as needed for Pain (scale 4-6). [facility] ibuprofen 600 mg tablet 0 7-15 00:00: 00 Yes [id number] 600mg Take 1 tablet by mouth every 6 (six) hours as needed for Pain (scale 4-6). [facility] ibuprofen 600 mg tablet 0 7-15 00:00: 00 Yes [id number] 600mg Take 1 tablet by mouth every 6 (six) hours as needed for Pain (scale 4-6). [facility] ibuprofen 600 mg tablet 0 7-15 00:00: 00 Yes [id number] 600mg Take 1 tablet by mouth every 6 (six) hours as needed for Pain (scale 4-6). [facility] ibuprofen 600 mg tablet 0 7-15 00:00: 00 Yes [id number] 600mg Take 1 tablet by mouth every 6 (six) hours as needed for Pain (scale 4-6). [facility] ibuprofen 600 mg tablet 0 7-15 00:00: 00 Yes [id number] 600mg Take 1 tablet by mouth every 6 (six) hours as needed for Pain (scale 4-6). [facility] ibuprofen 600 mg tablet 2021-0 7-15 00:00: 00 Yes [id number] 600mg Take 1 tablet by mouth every 6 (six) hours as needed for Pain (scale 4-6). [facility] ibuprofen 600 mg tablet 2021-0 7-15 00:00: 00 Yes [id number] 600mg Take 1 tablet by mouth every 6 (six) hours as needed for Pain (scale 4-6). [facility] ibuprofen 600 mg tablet 0 7-15 00:00: 00 Yes [id number] 600mg Take 1 tablet by mouth every 6 (six) hours as needed for Pain (scale 4-6). [facility] ibuprofen 600 mg tablet 7-15 00:00: 00 Yes [id number] 600mg Take 1 tablet by mouth every 6 (six) hours as needed for Pain (scale 4-6). [facility] ibuprofen 600 mg tablet 7-15 00:00: 00 02-27 00:00 :00 No [id number] 600mg Take 1 tablet by mouth every 6 (six) hours as needed for Pain (scale 4-6). [facility] ibuprofen 600 mg tablet 7-15 00:00: 00 02-27 00:00 :00 No [id number] 600mg Take 1 tablet by mouth every 6 (six) hours as needed for Pain (scale 4-6). [facility] ibuprofen 600 mg tablet 7-15 00:00: 00 02-27 00:00 :00 No [id number] 600mg Take 1 tablet by mouth every 6 (six) hours as needed for Pain (scale 4-6). [facility] ibuprofen 600 mg tablet 7-15 00:00: 00 02-27 00:00 :00 No [id number] 600mg Take 1 tablet by mouth every 6 (six) hours as needed for Pain (scale 4-6). [facility] ibuprofen 600 mg tablet 7-15 00:00: 00 02-27 00:00 :00 No [id number] 600mg Take 1 tablet by mouth every [...] mg/5 mL syrup 11-18 00:00: 00 Yes [id number] 5mL Take 5 mL by mouth 4 (four) times daily as needed for Congestion /Allergies or Cough. [facility] naproxen 500 mg tablet 11-18 00:00: 00 Yes [id number] 500mg Take 1 tablet by mouth every 8 (eight) hours as needed for Pain (scale 4-6). [facility] cyclobenzap rine 10 mg tablet 11-18 00:00: 00 Yes [id number] 10mg Take 1 tablet by mouth at bedtime as needed for Muscle Spasms. [facility] bromphenira mine-pseudo ephedrine-D M (BROMFED DM) 2-30-10 mg/5 mL syrup 11-18 00:00: 00 Yes [id number] 5mL Take 5 mL by mouth 4 (four) times daily as needed for Congestion /Allergies or Cough. [facility] naproxen 500 mg tablet 11-18 00:00: 00 Yes [id number] 500mg Take 1 tablet by mouth every 8 (eight) hours as needed for Pain (scale 4-6). [facility] cyclobenzap rine 10 mg tablet 11-18 00:00: 00 Yes [id number] 10mg Take 1 tablet by mouth at bedtime as needed for Muscle Spasms. [facility] bromphenira mine-pseudo ephedrine-D M (BROMFED DM) 2-30-10 mg/5 mL syrup 11-18 00:00: 00 Yes [id number] 5mL Take 5 mL by mouth 4 (four) times daily as needed for Congestion /Allergies or Cough. [facility] naproxen 500 mg tablet 11-18 00:00: 00 Yes [id number] 500mg Take 1 tablet by mouth every 8 (eight) hours as needed for Pain (scale 4-6). [facility] cyclobenzap rine 10 mg tablet 11-18 00:00: 00 Yes [id number] 10mg Take 1 tablet by mouth at bedtime as needed for Muscle Spasms. [facility] bromphenira mine-pseudo ephedrine-D M (BROMFED DM) 2-30-10 mg/5 mL syrup 11-18 00:00: 00 Yes [id number] 5mL Take 5 mL by mouth 4 (four) times daily as needed for Congestion /Allergies or Cough. [facility] naproxen 500 mg tablet 11-18 00:00: 00 Yes [id number] 500mg Take 1 tablet by mouth every 8 (eight) hours as needed for Pain (scale 4-6). [facility] cyclobenzap rine 10 mg tablet 11-18 00:00: 00 Yes [id number] 10mg Take 1 tablet by mouth at bedtime as needed for Muscle Spasms. [facility] bromphenira mine-pseudo ephedrine-D M (BROMFED DM) 2-30-10 mg/5 mL syrup 11-18 00:00: 00 Yes [id number] 5mL Take 5 mL by mouth 4 (four) times daily as needed for Congestion /Allergies or Cough. [facility] naproxen 500 mg tablet 0 11-18 00:00: 00 Yes [id number] 500mg Take 1 tablet by mouth every 8 (eight) hours as needed for Pain (scale 4-6). [facility] cyclobenzap rine 10 mg tablet 0 11-18 00:00: 00 Yes [id number] 10mg Take 1 tablet by mouth at bedtime as needed for Muscle Spasms. [facility] bromphenira mine-pseudo ephedrine-D M (BROMFED DM) 2-30-10 mg/5 mL syrup 0 11-18 00:00: 00 Yes [id number] 5mL Take 5 mL by mouth 4 (four) times daily as needed for Congestion /Allergies or Cough. [facility] naproxen 500 mg tablet 11-18 00:00: 00 Yes [id number] 500mg Take 1 tablet by mouth every 8 (eight) hours as needed for Pain (scale 4-6). [facility] cyclobenzap rine 10 mg tablet 11-18 00:00: 00 Yes [id number] 10mg Take 1 tablet by mouth at bedtime as needed for Muscle Spasms. [facility] bromphenira mine-pseudo ephedrine-D M (BROMFED DM) 2-30-10 mg/5 mL syrup 11-18 00:00: 00 Yes [id number] 5mL Take 5 mL by mouth 4 (four) times daily as needed for Congestion /Allergies or Cough. [facility] naproxen 500 mg tablet 11-18 00:00: 00 Yes [id number] 500mg Take 1 tablet by mouth every 8 (eight) hours as needed for Pain (scale 4-6). [facility] cyclobenzap rine 10 mg tablet 11-18 00:00: 00 Yes [id number] 10mg Take 1 tablet by mouth at bedtime as needed for Muscle Spasms. [facility] bromphenira mine-pseudo ephedrine-D M (BROMFED DM) 2-30-10 mg/5 mL syrup 11-18 00:00: 00 Yes [id number] 5mL Take 5 mL by mouth 4 (four) times daily as needed for Congestion /Allergies or Cough. [facility] naproxen 500 mg tablet 11-18 00:00: 00 Yes [id number] 500mg Take 1 tablet by mouth every 8 (eight) hours as needed for Pain (scale 4-6). [facility] cyclobenzap rine 10 mg tablet 0 11-18 00:00: 00 Yes [id number] 10mg Take 1 tablet by mouth at bedtime as needed for Muscle Spasms. [facility] bromphenira mine-pseudo ephedrine-D M (BROMFED DM) 2-30-10 mg/5 mL syrup 11-18 00:00: 00 Yes [id number] 5mL Take 5 mL by mouth 4 (four) times daily as needed for Congestion /Allergies or Cough. [facility] naproxen 500 mg tablet 11-18 00:00: 00 Yes [id number] 500mg Take 1 tablet by mouth every 8 (eight) hours as needed for Pain (scale 4-6). [facility] cyclobenzap rine 10 mg tablet 11-18 00:00: 00 Yes [id number] 10mg Take 1 tablet by mouth at bedtime as needed for Muscle Spasms. [facility] bromphenira mine-pseudo ephedrine-D M (BROMFED DM) 2-30-10 mg/5 mL syrup 11-18 00:00: 00 Yes [id number] 5mL Take 5 mL by mouth 4 (four) times daily as needed for Congestion /Allergies or Cough. [facility] naproxen 500 mg tablet 11-18 00:00: 00 Yes [id number] 500mg Take 1 tablet by mouth every 8 (eight) hours as needed for Pain (scale 4-6). [facility] cyclobenzap rine 10 mg tablet 11-18 00:00: 00 Yes [id number] 10mg Take 1 tablet by mouth at bedtime as needed for Muscle Spasms. [facility] bromphenira mine-pseudo ephedrine-D M (BROMFED DM) 2-30-10 mg/5 mL syrup 11-18 00:00: 00 Yes [id number] 5mL Take 5 mL by mouth 4 (four) times daily as needed for Congestion /Allergies or Cough. [facility] naproxen 500 mg tablet 11-18 00:00: 00 Yes [id number] 500mg Take 1 tablet by mouth every 8 (eight) hours as needed for Pain (scale 4-6). [facility] cyclobenzap rine 10 mg tablet 11-18 00:00: 00 Yes [id number] 10mg Take 1 tablet by mouth at bedtime as needed for Muscle Spasms. [facility] bromphenira mine-pseudo ephedrine-D M (BROMFED DM) 2-30-10 mg/5 mL syrup 0 11-18 00:00: 00 Yes [id number] 5mL Take 5 mL by mouth 4 (four) times daily as needed for Congestion /Allergies or Cough. [facility] bromphenira mine-pseudo ephedrine-D M (BROMFED DM) 2-30-10 mg/5 mL syrup 0 11-18 00:00: 00 Yes [id number] 5mL Take 5 mL by mouth 4 (four) times daily as needed for Congestion /Allergies or Cough. [facility] bromphenira mine-pseudo ephedrine-D M (BROMFED DM) 2-30-10 mg/5 mL syrup 0 11-18 00:00: 00 Yes [id number] 5mL Take 5 mL by mouth 4 (four) times daily as needed for Congestion /Allergies or Cough. [facility] bromphenira mine-pseudo ephedrine-D M (BROMFED DM) 2-30-10 mg/5 mL syrup 0 11-18 00:00: 00 Yes [id number] 5mL Take 5 mL by mouth 4 (four) times daily as needed for Congestion /Allergies or Cough. [facility] bromphenira mine-pseudo ephedrine-D M (BROMFED DM) 2-30-10 mg/5 mL syrup 0 11-18 00:00: 00 Yes [id number] 5mL Take 5 mL by mouth 4 (four) times daily as needed for Congestion /Allergies or Cough. [facility] bromphenira mine-pseudo ephedrine-D M (BROMFED DM) 2-30-10 mg/5 mL syrup 0 11-18 00:00: 00 Yes [id number] 5mL Take 5 mL by mouth 4 (four) times daily as needed for Congestion /Allergies or Cough. [facility] bromphenira mine-pseudo ephedrine-D M (BROMFED DM) 2-30-10 mg/5 mL syrup 2022-0 7-09 00:00: 00 Yes [id number] 5mL Take 5 mL by mouth 4 (four) times daily as needed for Congestion /Allergies or Cough. [facility] bromphenira mine-pseudo ephedrine-D M (BROMFED DM) 2-30-10 mg/5 mL syrup 2022-0 7- 00:00: 00 Yes [id number] 5mL Take 5 mL by mouth 4 (four) times daily as needed for Congestion /Allergies or Cough. [facility] bromphenira mine-pseudo ephedrine-D M (BROMFED DM) 2-30-10 mg/5 mL syrup 2022-0 7- 00:00: 00 Yes [id number] 5mL Take 5 mL by mouth 4 (four) times daily as needed for Congestion /Allergies or Cough. [facility] bromphenira mine-pseudo ephedrine-D M (BROMFED DM) 2-30-10 mg/5 mL syrup 2-0 7- 00:00: 00 Yes [id number] 5mL Take 5 mL by mouth 4 (four) times daily as needed for Congestion /Allergies or Cough. [facility] bromphenira mine-pseudo ephedrine-D M (BROMFED DM) 2-30-10 mg/5 mL syrup 2022-0 7- 00:00: 00 Yes [id number] 5mL Take 5 mL by mouth 4 (four) times daily as needed for Congestion /Allergies or Cough. [facility] bromphenira mine-pseudo ephedrine-D M (BROMFED DM) 2-30-10 mg/5 mL syrup 2022-0 7- 00:00: 00 Yes [id number] 5mL Take 5 mL by mouth 4 (four) times daily as needed for Congestion /Allergies or Cough. [facility] bromphenira mine-pseudo ephedrine-D M (BROMFED DM) 2-30-10 mg/5 mL syrup 2022-0 7- 00:00: 00 Yes [id number] 5mL Take 5 mL by mouth 4 (four) times daily as needed for Congestion /Allergies or Cough. [facility] bromphenira mine-pseudo ephedrine-D M (BROMFED DM) 2-30-10 mg/5 mL syrup 2021-0 11-18 00:00: 00 Yes [id number] 5mL Take 5 mL by mouth 4 (four) times daily as needed for Congestion /Allergies or Cough. [facility] bromphenira mine-pseudo ephedrine-D M (BROMFED DM) 2-30-10 mg/5 mL syrup 0 11-18 00:00: 00 03-24 00:00 :00 No [id number] 5mL Take 5 mL by mouth 4 (four) times daily as needed for Congestion /Allergies or Cough. [facility] bromphenira mine-pseudo ephedrine-D M (BROMFED DM) 2-30-10 mg/5 mL syrup 2021-0 11-18 00:00: 00 03-24 00:00 :00 No [id number] 5mL Take 5 mL by mouth 4 (four) times daily as needed for Congestion /Allergies or Cough. [facility] naproxen 500 mg tablet 0 11-18 00:00: 00 02-27 00:00 :00 No [id number] 500mg Take 1 tablet by mouth every 8 (eight) hours as needed for Pain (scale 4-6). [facility] cyclobenzap rine 10 mg tablet 0 11-18 00:00: 00 02-27 00:00 :00 No [id number] 10mg Take 1 tablet by mouth at bedtime as needed for Muscle Spasms. [facility] naproxen 500 mg tablet 2021-0 11-18 00:00: 00 02-27 00:00 :00 No [id number] 500mg Take 1 tablet by mouth every 8 (eight) hours as needed for Pain (scale 4-6). [facility] cyclobenzap rine 10 mg tablet 2021-0 11-18 00:00: 00 02-27 00:00 :00 No [id number] 10mg Take 1 tablet by mouth at bedtime as needed for Muscle Spasms. [facility] naproxen 500 mg tablet 0 -09 00:00: 00 02-27 00:00 :00 No [id number] 500mg Take 1 tablet by mouth every 8 (eight) hours as needed for Pain (scale 4-6). [facility] cyclobenzap rine 10 mg tablet 11-18 00:00: 00 02-27 00:00 :00 No [id number] 10mg Take 1 tablet by mouth at bedtime as needed for Muscle Spasms. [facility] naproxen 500 mg tablet 11-18 00:00: 00 02-27 00:00 :00 No [id number] 500mg Take 1 tablet by mouth every 8 (eight) hours as needed for Pain (scale 4-6). [facility] cyclobenzap rine 10 mg tablet 11-18 00:00: 00 02-27 00:00 :00 No [id number] 10mg Take 1 tablet by mouth at bedtime as needed for Muscle Spasms. [facility] naproxen 500 mg tablet 11-18 00:00: 00 02-27 00:00 :00 No [id number] 500mg Take 1 tablet by mouth every 8 (eight) hours as needed for Pain (scale 4-6). [facility] cyclobenzap rine 10 mg tablet 11-18 00:00: 00 02-27 00:00 :00 No [id number] 10mg Take 1 tablet by mouth at bedtime as needed for Muscle Spasms. [facility] ibuprofen 100 mg/5 mL oral suspension 15 00:00: 00 Yes [id number] 605mg Take 30.25 mL by mouth every 6 (six) hours as needed for Pain (scale 4-6) or Temp > 38.5 C. [facility] ibuprofen 100 mg/5 mL oral suspension 2021-0 6-15 00:00: 00 Yes [id number] 605mg Take 30.25 mL by mouth every 6 (six) hours as needed for Pain (scale 4-6) or Temp > 38.5 C. [facility] ibuprofen 100 mg/5 mL oral suspension 10-25 00:00: 00 Yes [id number] 605mg Take 30.25 mL by mouth every 6 (six) hours as needed for Pain (scale 4-6) or Temp > 38.5 C. [facility] ibuprofen 100 mg/5 mL oral suspension 10-25 00:00: 00 Yes [id number] 605mg Take 30.25 mL by mouth every 6 (six) hours as needed for Pain (scale 4-6) or Temp > 38.5 C. [facility] ibuprofen 100 mg/5 mL oral suspension 10-25 00:00: 00 Yes [id number] 605mg Take 30.25 mL by mouth every 6 (six) hours as needed for Pain (scale 4-6) or Temp > 38.5 C. [facility] ibuprofen 100 mg/5 mL oral suspension 10-25 00:00: 00 Yes [id number] 605mg Take 30.25 mL by mouth every 6 (six) hours as needed for Pain (scale 4-6) or Temp > 38.5 C. [facility] ibuprofen 100 mg/5 mL oral suspension 10-25 00:00: 00 Yes [id number] 605mg Take 30.25 mL by mouth every 6 (six) hours as needed for Pain (scale 4-6) or Temp > 38.5 C. [facility] ibuprofen 100 mg/5 mL oral suspension 10-25 00:00: 00 Yes [id number] 605mg Take 30.25 mL by mouth every 6 (six) hours as needed for Pain (scale 4-6) or Temp > 38.5 C. [facility] ibuprofen 100 mg/5 mL oral suspension 10-25 00:00: 00 Yes [id number] 605mg Take 30.25 mL by mouth every 6 (six) hours as needed for Pain (scale 4-6) or Temp > 38.5 C. [facility] ibuprofen 100 mg/5 mL oral suspension 10-25 00:00: 00 Yes [id number] 605mg Take 30.25 mL by mouth every 6 (six) hours as needed for Pain (scale 4-6) or Temp > 38.5 C. [facility] ibuprofen 100 mg/5 mL oral suspension 10-25 00:00: 00 Yes [id number] 605mg Take 30.25 mL by mouth every 6 (six) hours as needed for Pain (scale 4-6) or Temp > 38.5 C. [facility] ibuprofen 100 mg/5 mL oral suspension 10-25 00:00: 00 02-27 00:00 :00 No [id number] 605mg Take 30.25 mL by mouth every 6 (six) hours as needed for Pain (scale 4-6) or Temp > 38.5 C. [facility] ibuprofen 100 mg/5 mL oral suspension 10-25 00:00: 00 02-27 00:00 :00 No [id number] 605mg Take 30.25 mL by mouth every 6 (six) hours as needed for Pain (scale 4-6) or Temp > 38.5 C. [facility] ibuprofen 100 mg/5 mL oral suspension 10-25 00:00: 00 02-27 00:00 :00 No [id number] 605mg Take 30.25 mL by mouth every 6 (six) hours as needed for Pain (scale 4-6) or Temp > 38.5 C. [facility] ibuprofen 100 mg/5 mL oral suspension 10-25 00:00: 00 02-27 00:00 :00 No [id number] 605mg Take 30.25 mL by mouth every 6 (six) hours as needed for Pain (scale 4-6) or Temp > 38.5 C. [facility] ibuprofen 100 mg/5 mL oral suspension 10-25 00:00: 00 02-27 00:00 :00 No [id number] 605mg Take 30.25 mL by mouth every 6 (six) hours as needed for Pain (scale 4-6) or Temp > 38.5 C. [facility] acetaminoph en 160 mg/5 mL liquid 2022-0 6-15 00:00: 00 12-12 00:00 :00 No [id number] 608mg Take 19 mL by mouth every 6 (six) hours as needed for Fever. [facility] acetaminoph en 160 mg/5 mL liquid 2-0 6-15 00:00: 00 12-12 00:00 :00 No [id number] 608mg Take 19 mL by mouth every 6 (six) hours as needed for Fever. [facility] DULoxetine 60 mg capsule 2-0 -27 00:00: 00 Yes [facility] DULoxetine 60 mg capsule 2-0 27 00:00: 00 Yes [facility] DULoxetine 60 mg capsule 2-0 27 00:00: 00 Yes [facility] DULoxetine 60 mg capsule 2-0 27 00:00: 00 Yes [facility] DULoxetine 60 mg capsule 2-0 27 00:00: 00 Yes [facility] DULoxetine 60 mg capsule 2-0 27 00:00: 00 Yes [facility] DULoxetine 60 mg capsule 2-0 27 00:00: 00 Yes [facility] DULoxetine 60 mg capsule 2021-0 27 00:00: 00 Yes [facility] DULoxetine 60 mg capsule 2-0 27 00:00: 00 Yes [facility] DULoxetine 60 mg capsule 2-0 27 00:00: 00 Yes [facility] DULoxetine 60 mg capsule 2-0 27 00:00: 00 Yes [facility] DULoxetine 60 mg capsule 2-0 27 00:00: 00 02-27 00:00 :00 No [facility] DULoxetine 60 mg capsule 2-0 27 00:00: 00 02-27 00:00 :00 No [facility] DULoxetine 60 mg capsule 2-0 27 00:00: 00 02-27 00:00 :00 No [facility] DULoxetine 60 mg capsule 0 10-06 00:00: 00 02-27 00:00 :00 No [facility] traZODone 50 mg tablet 10-06 00:00: 00 12-12 00:00 :00 No [facility] mometasone 50 mcg/actuati on nasal spray 0 09-28 00:00: 00 Yes [id number] 1{spray } Use 1 Terrell in each nostril 2 (two) times daily. [facility] mometasone 50 mcg/actuati on nasal spray 0 09-28 00:00: 00 Yes [id number] 1{spray } Use 1 Terrell in each nostril 2 (two) times daily. [facility] mometasone 50 mcg/actuati on nasal spray 0 09-28 00:00: 00 Yes [id number] 1{spray } Use 1 Terrell in each nostril 2 (two) times daily. [facility] mometasone 50 mcg/actuati on nasal spray 0 09-28 00:00: 00 Yes [id number] 1{spray } Use 1 Terrell in each nostril 2 (two) times daily. [facility] mometasone 50 mcg/actuati on nasal spray 0 19 00:00: 00 Yes [id number] 1{spray } Use 1 Terrell in each nostril 2 (two) times daily. [facility] mometasone 50 mcg/actuati on nasal spray 0 09-28 00:00: 00 Yes [id number] 1{spray } Use 1 Terrell in each nostril 2 (two) times daily. [facility] mometasone 50 mcg/actuati on nasal spray 0 19 00:00: 00 Yes [id number] 1{spray } Use 1 Terrell in each nostril 2 (two) times daily. [facility] mometasone 50 mcg/actuati on nasal spray 2021-0 -19 00:00: 00 Yes [id number] 1{spray } Use 1 Terrell in each nostril 2 (two) times daily. [facility] mometasone 50 mcg/actuati on nasal spray 2021-0 5-19 00:00: 00 Yes [id number] 1{spray } Use 1 Terrell in each nostril 2 (two) times daily. [facility] mometasone 50 mcg/actuati on nasal spray 2021-0 5-19 00:00: 00 Yes [id number] 1{spray } Use 1 Terrell in each nostril 2 (two) times daily. [facility] mometasone 50 mcg/actuati on nasal spray 2021-0 5-19 00:00: 00 Yes [id number] 1{spray } Use 1 Terrell in each nostril 2 (two) times daily. [facility] mometasone 50 mcg/actuati on nasal spray 2021-0 5-19 00:00: 00 02-27 00:00 :00 No [id number] 1{spray } Use 1 Terrell in each nostril 2 (two) times daily. [facility] mometasone 50 mcg/actuati on nasal spray 2021-0 5-19 00:00: 00 02-27 00:00 :00 No [id number] 1{spray } Use 1 Terrell in each nostril 2 (two) times daily. [facility] mometasone 50 mcg/actuati on nasal spray 2021-0 5-19 00:00: 00 02-27 00:00 :00 No [id number] 1{spray } Use 1 Terrell in each nostril 2 (two) times daily. [facility] mometasone 50 mcg/actuati on nasal spray 2021-0 5-19 00:00: 00 02-27 00:00 :00 No [id number] 1{spray } Use 1 Terrell in each nostril 2 (two) times daily. [facility] mometasone 50 mcg/actuati on nasal spray 2021-0 5-19 00:00: 00 02-27 00:00 :00 No [id number] 1{spray } Use 1 Terrell in each nostril 2 (two) times daily. [facility] cetirizine (ZYRTEC) 10 mg tablet 2021-0 5-16 00:00: 00 Yes [id number] 10mg Take 1 tablet by mouth daily. [facility] cetirizine (ZYRTEC) 10 mg tablet 2021-0 5-16 00:00: 00 Yes [id number] 10mg Take 1 tablet by mouth daily. [facility] cetirizine (ZYRTEC) 10 mg tablet 2021-0 5-16 00:00: 00 Yes [id number] 10mg Take 1 tablet by mouth daily. [facility] cetirizine (ZYRTEC) 10 mg tablet 2021-0 5-16 00:00: 00 Yes [id number] 10mg Take 1 tablet by mouth daily. [facility] cetirizine (ZYRTEC) 10 mg tablet 2021-0 5-16 00:00: 00 Yes [id number] 10mg Take 1 tablet by mouth daily. [facility] cetirizine (ZYRTEC) 10 mg tablet 2021-0 5-16 00:00: 00 Yes [id number] 10mg Take 1 tablet by mouth daily. [facility] cetirizine (ZYRTEC) 10 mg tablet 2021-0 5-16 00:00: 00 Yes [id number] 10mg Take 1 tablet by mouth daily. [facility] cetirizine (ZYRTEC) 10 mg tablet 2021-0 5-16 00:00: 00 Yes [id number] 10mg Take 1 tablet by mouth daily. [facility] cetirizine (ZYRTEC) 10 mg tablet 2021-0 5-16 00:00: 00 Yes [id number] 10mg Take 1 tablet by mouth daily. [facility] cetirizine (ZYRTEC) 10 mg tablet 2-0 5-16 00:00: 00 Yes [id number] 10mg Take 1 tablet by mouth daily. [facility] cetirizine (ZYRTEC) 10 mg tablet 2-0 5-16 00:00: 00 Yes [id number] 10mg Take 1 tablet by mouth daily. [facility] cetirizine (ZYRTEC) 10 mg tablet 2021-0 5-16 00:00: 00 02-27 00:00 :00 No [id number] 10mg Take 1 tablet by mouth daily. [facility] cetirizine (ZYRTEC) 10 mg tablet 2021-0 16 00:00: 00 02-27 00:00 :00 No [id number] 10mg Take 1 tablet by mouth daily. [facility] cetirizine (ZYRTEC) 10 mg tablet 2021-0 16 00:00: 00 02-27 00:00 :00 No [id number] 10mg Take 1 tablet by mouth daily. [facility] cetirizine (ZYRTEC) 10 mg tablet 2021-0 16 00:00: 00 02-27 00:00 :00 No [id number] 10mg Take 1 tablet by mouth daily. [facility] cetirizine (ZYRTEC) 10 mg tablet 2021-0 16 00:00: 00 02-27 00:00 :00 No [id number] 10mg Take 1 tablet by mouth daily. [facility] DULoxetine 30 mg capsule 2021-0 09-18 00:00: 00 Yes [facility] gabapentin 300 mg capsule 2021-0 - 00:00: 00 Yes [facility] ondansetron 4 mg tablet 2021-0 09-18 00:00: 00 Yes [facility] DULoxetine 30 mg capsule 2021-0 - 00:00: 00 Yes [facility] gabapentin 300 mg capsule 2-0 - 00:00: 00 Yes [facility] ondansetron 4 mg tablet 2021-0 - 00:00: 00 Yes [facility] DULoxetine 30 mg capsule 2-0 - 00:00: 00 Yes [facility] gabapentin 300 mg capsule 2-0 - 00:00: 00 Yes [facility] ondansetron 4 mg tablet 2-0 - 00:00: 00 Yes [facility] DULoxetine 30 mg capsule 2-0 09-18 00:00: 00 Yes [facility] gabapentin 300 mg capsule 2-0 09-18 00:00: 00 Yes [facility] ondansetron 4 mg tablet 2-0 09-18 00:00: 00 Yes [facility] DULoxetine 30 mg capsule 2-0 09-18 00:00: 00 Yes [facility] gabapentin 300 mg capsule 2-0 09-18 00:00: 00 Yes [facility] ondansetron 4 mg tablet 2-0 09-18 00:00: 00 Yes [facility] DULoxetine 30 mg capsule 2-0 09-18 00:00: 00 Yes [facility] gabapentin 300 mg capsule 2-0 09-18 00:00: 00 Yes [facility] ondansetron 4 mg tablet 2-0 09-18 00:00: 00 Yes [facility] DULoxetine 30 mg capsule 2-0 09-18 00:00: 00 Yes [facility] gabapentin 300 mg capsule 2-0 09-18 00:00: 00 Yes [facility] ondansetron 4 mg tablet 2-0 09-18 00:00: 00 Yes [facility] DULoxetine 30 mg capsule 2-0 09-18 00:00: 00 Yes [facility] gabapentin 300 mg capsule 2-0 09-18 00:00: 00 Yes [facility] ondansetron 4 mg tablet 2-0 09-18 00:00: 00 Yes [facility] DULoxetine 30 mg capsule 2-0 09-18 00:00: 00 Yes [facility] gabapentin 300 mg capsule 2-0 09-18 00:00: 00 Yes [facility] ondansetron 4 mg tablet 2-0 09-18 00:00: 00 Yes [facility] DULoxetine 30 mg capsule 2-0 09-18 00:00: 00 Yes [facility] gabapentin 300 mg capsule 2-0 09-18 00:00: 00 Yes [facility] ondansetron 4 mg tablet 2-0 - 00:00: 00 Yes [facility] DULoxetine 30 mg capsule 2-0 - 00:00: 00 Yes [facility] gabapentin 300 mg capsule 2021-0 - 00:00: 00 Yes [facility] ondansetron 4 mg tablet 2021-0 09-18 00:00: 00 Yes [facility] DULoxetine 30 mg capsule 2-0 - 00:00: 00 02-27 00:00 :00 No [facility] gabapentin 300 mg capsule 2021-0 09-18 00:00: 00 02-27 00:00 :00 No [facility] ondansetron 4 mg tablet 2021-0 09-18 00:00: 00 02-27 00:00 :00 No [facility] DULoxetine 30 mg capsule 2021-0 09-18 00:00: 00 02-27 00:00 :00 No [facility] gabapentin 300 mg capsule 2021-0 09-18 00:00: 00 02-27 00:00 :00 No [facility] ondansetron 4 mg tablet 2021-0 09-18 00:00: 00 02-27 00:00 :00 No [facility] DULoxetine 30 mg capsule 2021-0 09-18 00:00: 00 02-27 00:00 :00 No [facility] gabapentin 300 mg capsule 2021-0 09-18 00:00: 00 02-27 00:00 :00 No [facility] ondansetron 4 mg tablet 2021-0 09-18 00:00: 00 02-27 00:00 :00 No [facility] DULoxetine 30 mg capsule 2021-0 09-18 00:00: 00 02-27 00:00 :00 No [facility] gabapentin 300 mg capsule 2021-0 - 00:00: 00 02-27 00:00 :00 No [facility] ondansetron 4 mg tablet 0 09-18 00:00: 00 02-27 00:00 :00 No [facility] DULoxetine 30 mg capsule 09-18 00:00: 00 02-27 00:00 :00 No [facility] gabapentin 300 mg capsule 09-18 00:00: 00 02-27 00:00 :00 No [facility] ondansetron 4 mg tablet 0 09-18 00:00: 00 02-27 00:00 :00 No [facility] amLODIPine 5 mg tablet 0 09-01 00:00: 00 Yes [facility] amLODIPine 5 mg tablet 0 09-01 00:00: 00 Yes 5mg Take 5 mg by mouth. [facility] amLODIPine 5 mg tablet 0 09-01 00:00: 00 Yes [facility] amLODIPine 5 mg tablet 0 09-01 00:00: 00 Yes 5mg Take 5 mg by mouth. [facility] amLODIPine 5 mg tablet 2021-0 09-01 00:00: 00 Yes [facility] amLODIPine 5 mg tablet 0 09-01 00:00: 00 Yes 5mg Take 5 mg by mouth. [facility] amLODIPine 5 mg tablet 0 09-01 00:00: 00 Yes [facility] amLODIPine 5 mg tablet 0 09-01 00:00: 00 Yes 5mg Take 5 mg by mouth. [facility] amLODIPine 5 mg tablet 0 09-01 00:00: 00 Yes [facility] amLODIPine 5 mg tablet 0 09-01 00:00: 00 Yes 5mg Take 5 mg by mouth. [facility] amLODIPine 5 mg tablet 0 09-01 00:00: 00 Yes [facility] amLODIPine 5 mg tablet 0 09-01 00:00: 00 Yes 5mg Take 5 mg by mouth. [facility] amLODIPine 5 mg tablet 0 09-01 00:00: 00 Yes [facility] amLODIPine 5 mg tablet 0 09-01 00:00: 00 Yes 5mg Take 5 mg by mouth. [facility] amLODIPine 5 mg tablet 0 09-01 00:00: 00 Yes [facility] amLODIPine 5 mg tablet 0 09-01 00:00: 00 Yes 5mg Take 5 mg by mouth. [facility] amLODIPine 5 mg tablet 0 09-01 00:00: 00 Yes [facility] amLODIPine 5 mg tablet 0 09-01 00:00: 00 Yes 5mg Take 5 mg by mouth. [facility] amLODIPine 5 mg tablet 0 09-01 00:00: 00 Yes [facility] amLODIPine 5 mg tablet 0 09-01 00:00: 00 Yes 5mg Take 5 mg by mouth. [facility] amLODIPine 5 mg tablet 0 09-01 00:00: 00 Yes [facility] amLODIPine 5 mg tablet 0 09-01 00:00: 00 Yes 5mg Take 5 mg by mouth. [facility] amLODIPine 5 mg tablet 0 09-01 00:00: 00 02-27 00:00 :00 No [facility] amLODIPine 5 mg tablet 0 09-01 00:00: 00 02-27 00:00 :00 No 5mg Take 5 mg by mouth. [facility] amLODIPine 5 mg tablet 0 09-01 00:00: 00 02-27 00:00 :00 No [facility] amLODIPine 5 mg tablet 0 09-01 00:00: 00 02-27 00:00 :00 No 5mg Take 5 mg by mouth. [facility] amLODIPine 5 mg tablet 0 09-01 00:00: 00 02-27 00:00 :00 No [facility] amLODIPine 5 mg tablet 0 09-01 00:00: 00 02-27 00:00 :00 No 5mg Take 5 mg by mouth. [facility] amLODIPine 5 mg tablet 2021-0 4-22 00:00: 00 02-27 00:00 :00 No [facility] amLODIPine 5 mg tablet 0 422 00:00: 00 02-27 00:00 :00 No 5mg Take 5 mg by mouth. [facility] amLODIPine 5 mg tablet 0 4-22 00:00: 00 02-27 00:00 :00 No [facility] amLODIPine 5 mg tablet 0 4 00:00: 00 02-27 00:00 :00 No 5mg Take 5 mg by mouth. [facility] buPROPion XL 150 mg 24 hr tablet 2021-0 4-20 00:00: 00 Yes [facility] buPROPion XL 150 mg 24 hr tablet 2021-0 4-20 00:00: 00 Yes [facility] buPROPion XL 150 mg 24 hr tablet 2021-0 4-20 00:00: 00 Yes [facility] buPROPion XL 150 mg 24 hr tablet 2021-0 4-20 00:00: 00 Yes [facility] buPROPion XL 150 mg 24 hr tablet 2021-0 4-20 00:00: 00 Yes [facility] buPROPion XL 150 mg 24 hr tablet 2021-0 4-20 00:00: 00 Yes [facility] buPROPion XL 150 mg 24 hr tablet 2021-0 4-20 00:00: 00 Yes [facility] buPROPion XL 150 mg 24 hr tablet 2-0 4-20 00:00: 00 Yes [facility] buPROPion XL 150 mg 24 hr tablet 2-0 4-20 00:00: 00 Yes [facility] buPROPion XL 150 mg 24 hr tablet 2021-0 4-20 00:00: 00 Yes [facility] buPROPion XL 150 mg 24 hr tablet 2021-0 4-20 00:00: 00 Yes [facility] buPROPion XL 150 mg 24 hr tablet 2021-0 4-20 00:00: 00 08-31 04:59 :00 No 150mg Take 150 mg by mouth. [facility] buPROPion XL 150 mg 24 hr tablet 2021-0 4-20 00:00: 00 08-31 04:59 :00 No 150mg Take 150 mg by mouth. [facility] buPROPion XL 150 mg 24 hr tablet 2021-0 4-20 00:00: 00 08-31 04:59 :00 No 150mg Take 150 mg by mouth. [facility] buPROPion XL 150 mg 24 hr tablet 2021-0 4-20 00:00: 00 08-31 04:59 :00 No 150mg Take 150 mg by mouth. [facility] buPROPion XL 150 mg 24 hr tablet 2021-0 4-20 00:00: 00 08-31 04:59 :00 No 150mg Take 150 mg by mouth. [facility] buPROPion XL 150 mg 24 hr tablet 2021-0 4-20 00:00: 00 08-31 04:59 :00 No 150mg Take 150 mg by mouth. [facility] buPROPion XL 150 mg 24 hr tablet 2021-0 4-20 00:00: 00 08-31 04:59 :00 No 150mg Take 150 mg by mouth. [facility] buPROPion XL 150 mg 24 hr tablet 2021-0 4-20 00:00: 00 08-31 04:59 :00 No 150mg Take 150 mg by mouth. [facility] buPROPion XL 150 mg 24 hr tablet 2021-0 4-20 00:00: 00 08-31 04:59 :00 No 150mg Take 150 mg by mouth. [facility] buPROPion XL 150 mg 24 hr tablet 2-0 4-20 00:00: 00 08-31 04:59 :00 No 150mg Take 150 mg by mouth. [facility] buPROPion XL 150 mg 24 hr tablet 2021-0 4-20 00:00: 00 08-31 04:59 :00 No 150mg Take 150 mg by mouth. [facility] buPROPion XL 150 mg 24 hr tablet 0 4-20 00:00: 00 02-27 00:00 :00 No [facility] buPROPion XL 150 mg 24 hr tablet 0 4-20 00:00: 00 02-27 00:00 :00 No 150mg Take 150 mg by mouth. [facility] buPROPion XL 150 mg 24 hr tablet 0 4-20 00:00: 00 02-27 00:00 :00 No [facility] buPROPion XL 150 mg 24 hr tablet 4-20 00:00: 00 02-27 00:00 :00 No 150mg Take 150 mg by mouth. [facility] buPROPion XL 150 mg 24 hr tablet 0 4-20 00:00: 00 02-27 00:00 :00 No [facility] buPROPion XL 150 mg 24 hr tablet 0 4-20 00:00: 00 02-27 00:00 :00 No 150mg Take 150 mg by mouth. [facility] buPROPion XL 150 mg 24 hr tablet 0 4-20 00:00: 00 02-27 00:00 :00 No [facility] buPROPion XL 150 mg 24 hr tablet 0 4-20 00:00: 00 02-27 00:00 :00 No 150mg Take 150 mg by mouth. [facility] buPROPion XL 150 mg 24 hr tablet 0 4-20 00:00: 00 02-27 00:00 :00 No [facility] buPROPion XL 150 mg 24 hr tablet 0 4-20 00:00: 00 02-27 00:00 :00 No 150mg Take 150 mg by mouth. [facility] proMETHazin e 25 mg tablet 4-05 00:00: 00 09-12 00:00 :00 No [id number] 25mg Take 1 tablet by mouth every 6 (six) hours as needed for Nausea and Vomiting (N/V). [facility] traMADoL 50 mg tablet 08-15 00:00: 00 09-12 00:00 :00 No [id number] 50mg Take 1 tablet by mouth every 6 (six) hours as needed (pain). Indication s: acute pain [facility] proMETHazin e 25 mg tablet 08-15 00:00: 00 09-12 00:00 :00 No [id number] 25mg Take 1 tablet by mouth every 6 (six) hours as needed for Nausea and Vomiting (N/V). [facility] traMADoL 50 mg tablet 08-15 00:00: 00 09-12 00:00 :00 No [id number] 50mg Take 1 tablet by mouth every 6 (six) hours as needed (pain). Indication s: acute pain [facility] proMETHazin e 25 mg tablet 08-15 00:00: 09-12 00:00 :00 No [id number] 25mg Take 1 tablet by mouth every [...] 08-07 00:00: 00 08-22 04:59 :00 No [id number] 10mg Take 1 tablet by mouth 3 (three) times daily for 14 days. [facility] ibuprofen 800 mg tablet 08-07 00:00: 00 08-22 04:59 :00 No [id number] 800mg Take 1 tablet by mouth every 6 (six) hours as needed for Pain (scale 1-3) for up to 14 days. [facility] diclofenac 75 mg EC tablet 2022-0 3-22 00:00: 00 09-12 00:00 :00 No [facility] orphenadrin e 100 mg SR tablet 0 3- 00:00: 00 09-12 00:00 :00 No [facility] diclofenac 75 mg EC tablet 3- 00:00: 00 09-12 00:00 :00 No [facility] orphenadrin e 100 mg SR tablet 08-01 00:00: 00 09-12 00:00 :00 No [facility] divalproex 125 mg EC tablet 3-11 00:00: 00 09-12 00:00 :00 No [id number] 125mg Take 1 tablet by mouth every 12 (twelve) hours. [facility] divalproex Sprinkles 125 mg SPRINKLE capsule 0 3-11 00:00: 00 09-12 00:00 :00 No [facility] divalproex 125 mg EC tablet 0 3-11 00:00: 00 09-12 00:00 :00 No [id number] 125mg Take 1 tablet by mouth every 12 (twelve) hours. [facility] divalproex Sprinkles 125 mg SPRINKLE capsule 0 3-11 00:00: 00 09-12 00:00 :00 No [facility] divalproex 125 mg EC tablet 0 3-11 00:00: 00 09-12 00:00 :00 No [id number] 125mg Take 1 tablet by mouth every 12 (twelve) hours. [facility] ibuprofen 600 mg tablet 3-07 00:00: 00 08-01 04:59 :00 No [id number] 600mg Take 1 tablet by mouth [...] 05-31 00:00: 00 09-28 00:00 :00 No [id number] 2{puff} Inhale 2 Puffs every 12 (twelve) hours. [facility] fluticasone propionate 110 mcg/actuati on inhaler 05-31 00:00: 00 09-28 00:00 :00 No [id number] 2{puff} Inhale 2 Puffs every 12 (twelve) hours. [facility] fluticasone propionate 110 mcg/actuati on inhaler 05-31 00:00: 00 09-28 00:00 :00 No [id number] 2{puff} Inhale 2 Puffs every 12 (twelve) hours. [facility] fluticasone propionate 110 mcg/actuati on inhaler 05-31 00:00: 00 09-28 00:00 :00 No [id number] 2{puff} Inhale 2 Puffs every 12 (twelve) hours. [facility] benzonatate (TESSALON PERLES) 100 mg capsule 05-25 00:00: 00 09-25 00:00 :00 No [id number] 100mg Take 1 capsule by mouth every 8 (eight) hours as needed for Cough. [facility] benzonatate (TESSALON PERLES) 100 mg capsule 05-25 00:00: 00 09-25 00:00 :00 No [id number] 100mg Take 1 capsule by mouth every 8 (eight) hours as needed for Cough. [facility] benzonatate (TESSALON PERLES) 100 mg capsule 05-25 00:00: 00 09-25 00:00 :00 No [id number] 100mg Take 1 capsule by mouth every 8 (eight) hours as needed for Cough. [facility] benzonatate (TESSALON PERLES) 100 mg capsule 05-25 00:00: 00 09-25 00:00 :00 No [id number] 100mg Take 1 capsule by mouth every [...] 2020-05 00:00: 00 05-25 00:00 :00 No [id number] 500mg Take 1 tablet by mouth every 6 (six) hours as needed (MUSCLE SPASM). [facility] vitamin B-12 (VITAMIN B-12) 500 mcg tablet 2020-05 00:00: 00 09-12 00:00 :00 No [id number] 500ug Take 1 tablet by mouth daily. [facility] vitamin B-12 (VITAMIN B-12) 500 mcg tablet 2020-05 00:00: 00 09-12 00:00 :00 No [id number] 500ug Take 1 tablet by mouth daily. [facility] vitamin B-12 (VITAMIN B-12) 500 mcg tablet 2020-05 00:00: 00 09-12 00:00 :00 No [id number] 500ug Take 1 tablet by mouth daily. [facility] vitamin B-12 (VITAMIN B-12) 500 mcg tablet 2020-05 00:00: 00 09-12 00:00 :00 No [id number] 500ug Take 1 tablet by mouth daily. [facility] vitamin B-12 (VITAMIN B-12) 500 mcg tablet 2020-05 00:00: 00 09-12 00:00 :00 No [id number] 500ug Take 1 tablet by mouth daily. [facility] vitamin B-12 (VITAMIN B-12) 500 mcg tablet 2020-05 00:00: 00 09-12 00:00 :00 No [id number] 500ug Take 1 tablet by mouth daily. [facility] vitamin B-12 (VITAMIN B-12) 500 mcg tablet 2020-05 00:00: 00 09-12 00:00 :00 No [id number] 500ug Take 1 tablet by mouth daily. [facility] methylPREDN ISolone 4 mg tablets 2020-05 00:00: 00 05-25 00:00 :00 No [id number] Follow package directions [facility] methylPREDN ISolone 4 mg tablets 2020-05 00:00: 00 05-25 00:00 :00 No [id number] Follow package directions [facility] methylPREDN ISolone 4 mg tablets 2020-05 00:00: 00 05-25 00:00 :00 No [id number] Follow package directions [facility] fluticasone propion-chel meteroL 115-21 mcg/actuati on inhaler 02-09 00:00: 00 05-25 00:00 :00 No [id number] 2{puff} Inhale 2 Puffs 2 (two) times daily. Rinse mouth after each use. [facility] albuterol 2.5 mg /3 mL (0.083 %) nebulizer solution 02-09 00:00: 00 05-25 00:00 :00 No [id number] 2.5mg Inhale 3 mL every 6 (six) hours as needed for Wheezing or Shortness of Breath. [facility] fluticasone propion-chel meteroL 115-21 mcg/actuati on inhaler 02-09 00:00: 00 05-25 00:00 :00 No [id number] 2{puff} Inhale 2 Puffs 2 (two) times daily. Rinse mouth after each use. [facility] /3 mL (0.083 %) nebulizer solution 02-09 00:00: 00 05-25 00:00 :00 No [id number] 2.5mg Inhale 3 mL every 6 (six) hours as needed for Wheezing or Shortness of Breath. [facility] fluticasone propion-chel meteroL 115-21 mcg/actuati on inhaler 02-09 00:00: 00 05-25 00:00 :00 No [id number] 2{puff} Inhale 2 Puffs 2 (two) times daily. Rinse mouth after each use. [facility] albuterol 2.5 mg /3 mL (0.083 %) nebulizer solution 02-09 00:00: 05-25 00:00 :00 No [id number] 2.5mg Inhale 3 mL every 6 (six) hours as needed for Wheezing or Shortness of Breath. [facility] fluticasone propion-chel meteroL 115-21 mcg/actuati on inhaler 02-09 00:00: 00 05-25 00:00 :00 No [id number] 2{puff} Inhale 2 Puffs 2 (two) times daily. Rinse mouth after each use. [facility] albuterol 2.5 mg /3 mL (0.083 %) nebulizer solution 02-09 00:00: 00 05-25 00:00 :00 No [id number] 2.5mg Inhale 3 mL every 6 (six) hours as needed for Wheezing or Shortness of Breath. [facility] methocarbam oL (ROBAXIN) 500 mg tablet 02-09 00:00: 00 05-02 00:00 :00 No [id number] 500mg Take 1 tablet by mouth every 6 (six) hours as needed (MUSCLE SPASM). [facility] methocarbam oL (ROBAXIN) 500 mg tablet 02-09 00:00: 00 05-02 00:00 :00 No [id number] 500mg Take 1 tablet by mouth every 6 (six) hours as needed (MUSCLE SPASM). [facility] bromphenira mine-pseudo ephedrine-D M (BROMFED DM) 2-30-10 mg/5 mL syrup 01-31 00:00: 00 02-09 00:00 :00 No [id number] 5mL Take 5 mL by mouth 4 (four) times daily as needed for Cough. [facility] methylPREDN ISolone (MEDROL, ANABELA,) 4 mg tablets 01-20 00:00: 00 02-09 00:00 :00 No [id number] Take by mouth SEE-INSTRU CTIONS. follow package directions [facility] methylPREDN ISolone (MEDROL, ANABELA,) 4 mg tablets 01-20 00:00: 00 02-09 00:00 :00 No [id number] Take by mouth SEE-INSTRU CTIONS. follow package directions [facility] methylPREDN ISolone (MEDROL, ANABELA,) 4 mg tablets 01-20 00:00: 00 02-09 00:00 :00 No [id number] Take by mouth SEE-INSTRU CTIONS. follow package directions [facility] albuterol 90 mcg/actuati on inhaler 01-12 00:00: 00 05-25 00:00 :00 No [id number] 2{puff} Inhale 2 Puffs every 4 (four) hours as needed for Wheezing or Shortness of Breath. [facility] albuterol 90 mcg/actuati on inhaler 01-12 00:00: 00 05-25 00:00 :00 No [id number] 2{puff} Inhale 2 Puffs every 4 (four) hours as needed for Wheezing or Shortness of Breath. [facility] albuterol 90 mcg/actuati on inhaler 01-12 00:00: 05-25 00:00 :00 No [id number] 2{puff} Inhale 2 Puffs every 4 (four) hours as needed for Wheezing or Shortness of Breath. [facility] mcg/actuati on inhaler 01-12 00:00: 00 05-25 00:00 :00 No [id number] 2{puff} Inhale 2 Puffs every 4 (four) hours as needed for Wheezing or Shortness of Breath. [facility] albut[facility]ol 90 mcg/actuati on inhaler 01-12 00:00: 00 05-25 00:00 :00 No [id number] 2{puff} Inhale 2 Puffs every 4 (four) hours as needed for Wheezing or Shortness of Breath. [facility] albuterol 90 mcg/actuati on inhaler 01-12 00:00: 00 05-25 00:00 :00 No [id number] 2{puff} Inhale 2 Puffs every 4 (four) hours as needed for Wheezing or Shortness of Breath. [facility] albuterol 90 mcg/actuati on inhaler 01-12 00:00: 00 05-25 00:00 :00 No [id number] 2{puff} Inhale 2 Puffs every 4 (four) hours as needed for Wheezing or Shortness of Breath. [facility] benzonatate 100 mg capsule 01-12 00:00: 00 02-19 00:00 :00 No [id number] 100mg Take 1 capsule by mouth 3 (three) times daily as needed for Cough. [facility] benzonatate 100 mg capsule 01-12 00:00: 00 02-19 00:00 :00 No [id number] 100mg Take 1 capsule by mouth 3 (three) times daily as needed for Cough. [facility] benzonatate 100 mg capsule 01-12 00:00: 02-19 00:00 :00 No [id number] 100mg Take 1 capsule by mouth 3 (three) times daily as needed for Cough. [facility] losartan 50 mg tablet 12-23 00:00: 00 02-09 00:00 :00 No 50mg Take 1 tablet by mouth 2 (two) times daily. [facility] mg tablet 12-23 00:00: 00 02-09 00:00 :00 No 50mg Take 1 tablet by mouth 2 (two) times daily. [facility] losartan 50 mg tablet 12-23 00:00: 00 02-09 00:00 :00 No 50mg Take 1 tablet by mouth 2 (two) times daily. [facility] top[facility] 25 mg tablet 11-22 00:00: 00 12-26 00:00 :00 No 25mg Take 1 tablet by mouth 2 (two) times daily. [facility] OXcarbazepi ne 150 mg tablet 11-21 00:00: 00 02-09 00:00 :00 No [facility] OXcarbazepi ne 150 mg tablet 11-21 00:00: 00 02-09 00:00 :00 No [facility] OXcarbazepi ne 150 mg tablet 11-21 00:00: 00 02-09 00:00 :00 No [facility] OXcarbazepi ne 150 mg tablet 11-21 00:00: 00 02-09 00:00 :00 No [facility] FLUoxetine 40 mg capsule 11-21 00:00: 00 12-26 00:00 :00 No [facility] traZODone 100 mg tablet 12 00:00: 00 12-26 00:00 :00 No [facility] dicyclomine 20 mg tablet 6-10 00:00: 00 12-26 00:00 :00 No [id number] 20mg Take 1 tablet by mouth 4 (four) times daily. [facility] proMETHazin e 25 mg tablet 6-10 00:00: 00 12-26 00:00 :00 No [id number] 25mg Take 1 tablet by mouth every 6 (six) hours as needed for Nausea and Vomiting (N/V). [facility] acetaminoph en-codeine 300-30 mg tablet 6-05 00:00: 00 12-26 00:00 :00 No TAKE 2 TABLETS BY MOUTH EVERY 6 HOURS NEEDED FOR PAIN [facility] oxybutynin (DITROPAN XL) 10 mg 24 hr tablet 5-30 00:00: 00 12-26 00:00 :00 No [id number] 10mg Take 1 tablet by mouth daily. [facility] ondansetron (ZOFRAN ODT) 4 mg disintegrat ing tablet 5-30 00:00: 00 12-26 00:00 :00 No [id number] 4mg Take 1 tablet by mouth every 8 (eight) hours as needed for Nausea and Vomiting (N/V). [facility] oxybutynin (DITROPAN XL) 10 mg 24 hr tablet 5-30 00:00: 00 12-26 00:00 :00 No [id number] 10mg Take 1 tablet by mouth daily. [facility] ondansetron (ZOFRAN ODT) 4 mg disintegrat ing tablet 5-30 00:00: 00 12-26 00:00 :00 No [id number] 4mg Take 1 tablet by mouth every 8 (eight) hours as needed for Nausea and Vomiting (N/V). [facility] oxybutynin (DITROPAN XL) 10 mg 24 hr tablet 5-30 00:00: 00 12-26 00:00 :00 No [id number] 10mg Take 1 tablet by mouth daily. [facility] ondansetron (ZOFRAN ODT) 4 mg disintegrat ing tablet 5-30 00:00: 00 12-26 00:00 :00 No [id number] 4mg Take 1 tablet by mouth every 8 (eight) hours as needed for Nausea and Vomiting (N/V). [facility] oxybutynin (DITROPAN XL) 10 mg 24 hr tablet 5-30 00:00: 00 12-26 00:00 :00 No [id number] 10mg Take 1 tablet by mouth daily. [facility] ondansetron (ZOFRAN ODT) 4 mg disintegrat ing tablet 530 00:00: 00 12-26 00:00 :00 No [id number] 4mg Take 1 tablet by mouth every 8 (eight) hours as needed for Nausea and Vomiting (N/V). [facility] ciprofloxac in HCl 500 mg tablet 530 00:00: 00 11-22 00:00 :00 No [id number] 500mg Take 1 tablet by mouth 2 (two) times daily. [facility] ciprofloxac in HCl 500 mg tablet 30 00:00: 00 11-22 00:00 :00 No [id number] 500mg Take 1 tablet by mouth 2 (two) times daily. [facility] ciprofloxac in HCl 500 mg tablet 530 00:00: 00 11-22 00:00 :00 No [id number] 500mg Take 1 tablet by mouth 2 (two) times daily. [facility] predniSONE 20 mg tablet 525 00:00: 00 11-22 00:00 :00 No [id number] 20mg Take 1 tablet by mouth daily. Days 1-2: 3 pills (60 mg). Days 3-4: 2 pills (40 mg). Days 5-6: 1 pill (20 mg). Days 7-8: 1/2 pill (10 mg). Then stop [facility] predniSONE 20 mg tablet 525 00:00: 00 11-22 00:00 :00 No [id number] 20mg Take 1 tablet by mouth daily. Days 1-2: 3 pills (60 mg). Days 3-4: 2 pills (40 mg). Days 5-6: 1 pill (20 mg). Days 7-8: 1/2 pill (10 mg). Then stop [facility] predniSONE 20 mg tablet 0 10-04 00:00: 00 11-22 00:00 :00 No [id number] 20mg Take 1 tablet by mouth daily. Days 1-2: 3 pills (60 mg). Days 3-4: 2 pills (40 mg). Days 5-6: 1 pill (20 mg). Days 7-8: 1/2 pill (10 mg). Then stop [facility] predniSONE 20 mg tablet 10-04 00:00: 00 11-22 00:00 :00 No [id number] 20mg Take 1 tablet by mouth daily. Days 1-2: 3 pills (60 mg). Days 3-4: 2 pills (40 mg). Days 5-6: 1 pill (20 mg). Days 7-8: 1/2 pill (10 mg). Then stop [facility] predniSONE 20 mg tablet 10-04 00:00: 00 11-22 00:00 :00 No [id number] 20mg Take 1 tablet by mouth daily. Days 1-2: 3 pills (60 mg). Days 3-4: 2 pills (40 mg). Days 5-6: 1 pill (20 mg). Days 7-8: 1/2 pill (10 mg). Then stop [facility] predniSONE 20 mg tablet 0 10-04 00:00: 00 11-22 00:00 :00 No [id number] 20mg Take 1 tablet by mouth daily. Days 1-2: 3 pills (60 mg). Days 3-4: 2 pills (40 mg). Days 5-6: 1 pill (20 mg). Days 7-8: 1/2 pill (10 mg). Then stop [facility] predniSONE 20 mg tablet 2020-10-04 00:00: 00 11-22 00:00 :00 No [id number] 20mg Take 1 tablet by mouth daily. Days 1-2: 3 pills (60 mg). Days 3-4: 2 pills (40 mg). Days 5-6: 1 pill (20 mg). Days 7-8: 1/2 pill (10 mg). Then stop [facility] predniSONE 20 mg tablet 10-04 00:00: 00 11-22 00:00 :00 No [id number] 20mg Take 1 tablet by mouth daily. Days 1-2: 3 pills (60 mg). Days 3-4: 2 pills (40 mg). Days 5-6: 1 pill (20 mg). Days 7-8: 1/2 pill (10 mg). Then stop [facility] predniSONE 20 mg tablet 10-04 00:00: 00 11-22 00:00 :00 No [id number] 20mg Take 1 tablet by mouth daily. Days 1-2: 3 pills (60 mg). Days 3-4: 2 pills (40 mg). Days 5-6: 1 pill (20 mg). Days 7-8: 1/2 pill (10 mg). Then stop [facility] predniSONE 20 mg tablet 10-04 00:00: 00 11-22 00:00 :00 No [id number] 20mg Take 1 tablet by mouth daily. Days 1-2: 3 pills (60 mg). Days 3-4: 2 pills (40 mg). Days 5-6: 1 pill (20 mg). Days 7-8: 1/2 pill (10 mg). Then stop [facility] mupirocin 2 % ointment 09-29 00:00: 00 12-26 00:00 :00 No [id number] Apply to both nostrils at bedtime [facility] mupirocin 2 % ointment 20 00:00: 00 12-26 00:00 :00 No [id number] Apply to both nostrils at bedtime [facility] mupirocin 2 % ointment 20 00:00: 00 12-26 00:00 :00 No [id number] Apply to both nostrils at bedtime [facility] mupirocin 2 % ointment 5-20 00:00: 00 12-26 00:00 :00 No [id number] Apply to both nostrils at bedtime [facility] mupirocin 2 % ointment 5-20 00:00: 00 12-26 00:00 :00 No [id number] Apply to both nostrils at bedtime [facility] mupirocin 2 % ointment 0 20 00:00: 00 12-26 00:00 :00 No [id number] Apply to both nostrils at bedtime [facility] mupirocin 2 % ointment 520 00:00: 00 12-26 00:00 :00 No [id number] Apply to both nostrils at bedtime [facility] mupirocin 2 % ointment 20 00:00: 00 12-26 00:00 :00 No [id number] Apply to both nostrils at bedtime [facility] mupirocin 2 % ointment 20 00:00: 00 12-26 00:00 :00 No [id number] Apply to both nostrils at bedtime [facility] mupirocin 2 % ointment 20 00:00: 00 12-26 00:00 :00 No [id number] Apply to both nostrils at bedtime [facility] mupirocin 2 % ointment 20 00:00: 00 12-26 00:00 :00 No [id number] Apply to both nostrils at bedtime [facility] naproxen sodium (ANAPROX DS) 550 mg tablet 09-28 00:00: 00 12-26 00:00 :00 No [id number] 550mg Take 1 tablet by mouth 2 (two) times daily with meals. [facility] naproxen sodium (ANAPROX DS) 550 mg tablet 09-28 00:00: 00 12-26 00:00 :00 No [id number] 550mg Take 1 tablet by mouth 2 (two) times daily with meals. [facility] naproxen sodium (ANAPROX DS) 550 mg tablet 5 00:00: 00 12-26 00:00 :00 No [id number] 550mg Take 1 tablet by mouth 2 (two) times daily with meals. [facility] naproxen sodium (ANAPROX DS) 550 mg tablet 5 00:00: 00 12-26 00:00 :00 No [id number] 550mg Take 1 tablet by mouth 2 (two) times daily with meals. [facility] naproxen sodium (ANAPROX DS) 550 mg tablet 09-28 00:00: 00 12-26 00:00 :00 No [id number] 550mg Take 1 tablet by mouth 2 (two) times daily with meals. [facility] naproxen sodium (ANAPROX DS) 550 mg tablet 09-28 00:00: 00 12-26 00:00 :00 No [id number] 550mg Take 1 tablet by mouth 2 (two) times daily with meals. [facility] naproxen sodium (ANAPROX DS) 550 mg tablet 09-28 00:00: 00 12-26 00:00 :00 No [id number] 550mg Take 1 tablet by mouth 2 (two) times daily with meals. [facility] naproxen sodium (ANAPROX DS) 550 mg tablet 09-28 00:00: 00 12-26 00:00 :00 No [id number] 550mg Take 1 tablet by mouth 2 (two) times daily with meals. [facility] naproxen sodium (ANAPROX DS) 550 mg tablet 5 00:00: 00 12-26 00:00 :00 No [id number] 550mg Take 1 tablet by mouth 2 (two) times daily with meals. [facility] naproxen sodium (ANAPROX DS) 550 mg tablet 09-28 00:00: 00 12-26 00:00 :00 No [id number] 550mg Take 1 tablet by mouth 2 (two) times daily with meals. [facility] naproxen sodium (ANAPROX DS) 550 mg tablet 09-28 00:00: 00 12-26 00:00 :00 No [id number] 550mg Take 1 tablet by mouth 2 (two) times daily with meals. [facility] losartan 25 mg tablet 09-16 00:00: 00 12-22 00:00 :00 No 25mg Take 1 tablet by mouth 2 (two) times daily. [facility] nadoloL 20 mg tablet 09-16 00:00: 00 12-22 00:00 :00 No [id number] Please take Nadalol 40 mg QAM [facility] losartan 25 mg tablet 09-16 00:00: 00 12-22 00:00 :00 No 25mg Take 1 tablet by mouth 2 (two) times daily. [facility] nadoloL 20 mg tablet 09-16 00:00: 00 12-22 00:00 :00 No [id number] Please take Nadalol 40 mg QAM [facility] losartan 25 mg tablet 09-16 00:00: 00 12-22 00:00 :00 No 25mg Take 1 tablet by mouth 2 (two) times daily. [facility] nadoloL 20 mg tablet 09-16 00:00: 00 12-22 00:00 :00 No [id number] Please take Nadalol 40 mg QAM [facility] losartan 25 mg tablet 09-16 00:00: 00 12-22 00:00 :00 No 25mg Take 1 tablet by mouth 2 (two) times daily. [facility] nadoloL 20 mg tablet 09-16 00:00: 12-22 00:00 :00 No [id number] Please take Nadalol 40 mg QAM [facility] losartan 25 mg tablet 09-16 00:00: 00 12-22 00:00 :00 No 25mg Take 1 tablet by mouth 2 (two) times daily. [facility] nadoloL 20 mg tablet 09-16 00:00: 00 12-22 00:00 :00 No [id number] Please take Nadalol 40 mg QAM [facility] losartan 25 mg tablet 09-16 00:00: 00 12-22 00:00 :00 No 25mg Take 1 tablet by mouth 2 (two) times daily. [facility] nadoloL 20 mg tablet 09-16 00:00: 00 12-22 00:00 :00 No [id number] Please take Nadalol 40 mg QAM [facility] losartan 25 mg tablet 09-16 00:00: 00 12-22 00:00 :00 No 25mg Take 1 tablet by mouth 2 (two) times daily. [facility] nadoloL 20 mg tablet 09-16 00:00: 00 12-22 00:00 :00 No [id number] Please take Nadalol 40 mg QAM [facility] losartan 25 mg tablet 09-16 00:00: 00 12-22 00:00 :00 No 25mg Take 1 tablet by mouth 2 (two) times daily. [facility] nadoloL 20 mg tablet 09-16 00:00: 00 12-22 00:00 :00 No [id number] Please take Nadalol 40 mg QAM [facility] losartan 25 mg tablet 09-16 00:00: 00 12-22 00:00 :00 No 25mg Take 1 tablet by mouth 2 (two) times daily. [facility] nadoloL 20 mg tablet 09-16 00:00: 00 12-22 00:00 :00 No [id number] Please take Nadalol 40 mg QAM [facility] losartan 25 mg tablet 09-16 00:00: 00 12-22 00:00 :00 No 25mg Take 1 tablet by mouth 2 (two) times daily. [facility] nadoloL 20 mg tablet 09-16 00:00: 00 12-22 00:00 :00 No [id number] Please take Nadalol 40 mg QAM [facility] losartan 25 mg tablet 09-16 00:00: 00 12-22 00:00 :00 No 25mg Take 1 tablet by mouth 2 (two) times daily. [facility] nadoloL 20 mg tablet 09-16 00:00: 00 12-22 00:00 :00 No [id number] Please take Nadalol 40 mg QAM [facility] LOESTRIN FE (LOESTRIN FE 1/20) 1 mg-20 mcg (21)/75 mg (7) tablet 09-06 00:00: 00 02-09 00:00 :00 No [id number] 1{tbl} Take 1 tablet by mouth daily. [facility] LOESTRIN FE (LOESTRIN FE 1/20) 1 mg-20 mcg (21)/75 mg (7) tablet 09-06 00:00: 00 02-09 00:00 :00 No [id number] 1{tbl} Take 1 tablet by mouth daily. [facility] LOESTRIN FE (LOESTRIN FE 1/20) 1 mg-20 mcg (21)/75 mg (7) tablet 09-06 00:00: 00 02-09 00:00 :00 No [id number] 1{tbl} Take 1 tablet by mouth daily. [facility] LOESTRIN FE (LOESTRIN FE 1/20) 1 mg-20 mcg (21)/75 mg (7) tablet 09-06 00:00: 00 02-09 00:00 :00 No [id number] 1{tbl} Take 1 tablet by mouth daily. [facility] LOESTRIN FE (LOESTRIN FE 1/20) 1 mg-20 mcg (21)/75 mg (7) tablet 09-06 00:00: 00 02-09 00:00 :00 No [id number] 1{tbl} Take 1 tablet by mouth daily. [facility] LOESTRIN FE (LOESTRIN FE 1/20) 1 mg-20 mcg (21)/75 mg (7) tablet 09-06 00:00: 00 02-09 00:00 :00 No [id number] 1{tbl} Take 1 tablet by mouth daily. [facility] LOESTRIN FE (LOESTRIN FE 1/20) 1 mg-20 mcg (21)/75 mg (7) tablet 09-06 00:00: 00 02-09 00:00 :00 No [id number] 1{tbl} Take 1 tablet by mouth daily. [facility] LOESTRIN FE (LOESTRIN FE 1/20) 1 mg-20 mcg (21)/75 mg (7) tablet 09-06 00:00: 00 02-09 00:00 :00 No [id number] 1{tbl} Take 1 tablet by mouth daily. [facility] LOESTRIN FE (LOESTRIN FE 1/20) 1 mg-20 mcg (21)/75 mg (7) tablet 09-06 00:00: 00 02-09 00:00 :00 No [id number] 1{tbl} Take 1 tablet by mouth daily. [facility] LOESTRIN FE (LOESTRIN FE 1/20) 1 mg-20 mcg (21)/75 mg (7) tablet 09-06 00:00: 00 02-09 00:00 :00 No [id number] 1{tbl} Take 1 tablet by mouth daily. [facility] LOESTRIN FE (LOESTRIN FE 1/20) 1 mg-20 mcg (21)/75 mg (7) tablet 09-06 00:00: 00 02-09 00:00 :00 No [id number] 1{tbl} Take 1 tablet by mouth daily. [facility] LOESTRIN FE (LOESTRIN FE 1/20) 1 mg-20 mcg (21)/75 mg (7) tablet 09-06 00:00: 00 02-09 00:00 :00 No [id number] 1{tbl} Take 1 tablet by mouth daily. [facility] LOESTRIN FE (LOESTRIN FE 1/20) 1 mg-20 mcg (21)/75 mg (7) tablet 09-06 00:00: 00 02-09 00:00 :00 No [id number] 1{tbl} Take 1 tablet by mouth daily. [facility] LOESTRIN FE (LOESTRIN FE 1/20) 1 mg-20 mcg (21)/75 mg (7) tablet 09-06 00:00: 00 02-09 00:00 :00 No [id number] 1{tbl} Take 1 tablet by mouth daily. [facility] FLUoxetine 20 mg capsule 09-06 00:00: 00 11-22 00:00 :00 No [id number] 20mg Take 1 capsule by mouth daily. [facility] traZODone 50 mg tablet 09-06 00:00: 00 11-22 00:00 :00 No [id number] 50mg Take 1 tablet by mouth at bedtime. [facility] FLUoxetine 20 mg capsule 09-06 00:00: 00 11-22 00:00 :00 No [id number] 20mg Take 1 capsule by mouth daily. [facility] traZODone 50 mg tablet 09-06 00:00: 00 11-22 00:00 :00 No [id number] 50mg Take 1 tablet by mouth at bedtime. [facility] FLUoxetine 20 mg capsule 09-06 00:00: 00 11-22 00:00 :00 No [id number] 20mg Take 1 capsule by mouth daily. [facility] traZODone 50 mg tablet 2021-0 4-27 00:00: 00 11-22 00:00 :00 No [id number] 50mg Take 1 tablet by mouth at bedtime. [facility] FLUoxetine 20 mg capsule 2020-0 27 00:00: 00 11-22 00:00 :00 No [id number] 20mg Take 1 capsule by mouth daily. [facility] traZODone 50 mg tablet 0 09-06 00:00: 00 11-22 00:00 :00 No [id number] 50mg Take 1 tablet by mouth at bedtime. [facility] FLUoxetine 20 mg capsule 0 09-06 00:00: 00 11-22 00:00 :00 No [id number] 20mg Take 1 capsule by mouth daily. [facility] traZODone 50 mg tablet 2020-0 09-06 00:00: 00 11-22 00:00 :00 No [id number] 50mg Take 1 tablet by mouth at bedtime. [facility] FLUoxetine 20 mg capsule 0 09-06 00:00: 00 11-22 00:00 :00 No [id number] 20mg Take 1 capsule by mouth daily. [facility] traZODone 50 mg tablet 0 09-06 00:00: 00 11-22 00:00 :00 No [id number] 50mg Take 1 tablet by mouth at bedtime. [facility] FLUoxetine 20 mg capsule 2020-0 09-06 00:00: 00 11-22 00:00 :00 No [id number] 20mg Take 1 capsule by mouth daily. [facility] traZODone 50 mg tablet 2020-0 27 00:00: 00 11-22 00:00 :00 No [id number] 50mg Take 1 tablet by mouth at bedtime. [facility] FLUoxetine 20 mg capsule 2020-0 27 00:00: 00 11-22 00:00 :00 No [id number] 20mg Take 1 capsule by mouth daily. [facility] traZODone 50 mg tablet 09-06 00:00: 00 11-22 00:00 :00 No [id number] 50mg Take 1 tablet by mouth at bedtime. [facility] FLUoxetine 20 mg capsule 09-06 00:00: 00 11-22 00:00 :00 No [id number] 20mg Take 1 capsule by mouth daily. [facility] traZODone 50 mg tablet 09-06 00:00: 00 11-22 00:00 :00 No [id number] 50mg Take 1 tablet by mouth at bedtime. [facility] FLUoxetine 20 mg capsule 09-06 00:00: 00 11-22 00:00 :00 No [id number] 20mg Take 1 capsule by mouth daily. [facility] traZODone 50 mg tablet 09-06 00:00: 00 11-22 00:00 :00 No [id number] 50mg Take 1 tablet by mouth at bedtime. [facility] nadoloL 20 mg tablet 08-31 00:00: 00 09-16 00:00 :00 No [id number] Please take Nadalol 40 mg QAM and 20 mg QPM [facility] methocarbam oL (ROBAXIN) 500 mg tablet 08-18 00:00: 00 09-30 00:00 :00 No [id number] 500mg Take 1 tablet by mouth every [...] 12 HOURS NEEDED FOR PAIN [facility] ibuprofen 800 mg tablet 2020-0 4-04 00:00: 00 11-22 00:00 :00 No TAKE 1 TABLET BY MOUTH EVERY 12 HOURS NEEDED FOR PAIN [facility] ibuprofen 800 mg tablet 0 4-04 00:00: 00 11-22 00:00 :00 No TAKE 1 TABLET BY MOUTH EVERY 12 HOURS NEEDED FOR PAIN [facility] ibuprofen 800 mg tablet 2020-0 4-04 00:00: 00 11-22 00:00 :00 No TAKE 1 TABLET BY MOUTH EVERY 12 HOURS [facility] tablet 4-04 00:00: 00 11-22 00:00 :00 No TAKE 1 TABLET BY MOUTH EVERY 12 HOURS NEEDED FOR PAIN [facility] ibuprofen 800 mg tablet 4-04 00:00: 00 11-22 00:00 :00 No TAKE 1 TABLET BY MOUTH EVERY 12 HOURS [facility] FOR [facility]IN [facility] mg tablet 4-04 00:00: 00 11-22 00:00 :00 No TAKE 1 TABLET BY MOUTH EVERY 12 HOURS [facility]ED FOR [facility]IN [facility] mg tablet 4-04 00:00: 00 11-22 00:00 :00 No TAKE 1 TABLET BY MOUTH EVERY 12 HOURS NEEDED FOR PAIN [facility] mg tablet 4-04 00:00: 00 11-22 00:00 :00 No TAKE 1 TABLET BY MOUTH EVERY 12 HOURS NEEDED FOR PAIN [facility] ondansetron (ZOFRAN ODT) 4 mg disintegrat ing tablet 08-01 00:00: 00 09-30 00:00 :00 No [id number] 4mg Take 1 tablet by mouth every 8 (eight) hours as needed for Nausea and Vomiting (N/V). [facility] ketorolac 10 mg tablet 08-01 00:00: 00 09-30 00:00 :00 No [id number] 10mg Take 1 tablet by mouth every 6 (six) hours as needed for Pain (scale 4-6). [facility] ciprofloxac in HCl 250 mg tablet 08-01 00:00: 00 09-30 00:00 :00 No [id number] 250mg Take 1 tablet by mouth 2 (two) times daily. [facility] lidocaine 5 % (700 mg/patch) patch 07-22 00:00: 00 09-30 00:00 :00 No [id number] 1{patch } Apply 1 Patch to area(s) [...] tablet by mouth 2 (two) times daily. [facility] mg tablet 2020-0 1-05 00:00: 00 11-22 00:00 :00 No 25mg Take 1 tablet by mouth 2 (two) times daily. [facility] mg tablet 2020-0 1-05 00:00: [...] 2019-05 00:00: 00 06-15 00:00 :00 No [id number] 12.5mg Take 0.5 tablets by mouth 2 (two) times daily for 90 days. [facility] metoprolol succinate XL 25 mg 24 hr tablet 2019-05 00:00: 00 06-15 00:00 :00 No [id number] 12.5mg Take 0.5 tablets by mouth 2 (two) times daily for 90 days. [facility] metoprolol succinate XL 25 mg 24 hr tablet 2019-05 00:00: 00 06-15 00:00 :00 No [id number] 12.5mg Take 0.5 tablets by mouth 2 [...] tablet 11-17 00:00: 04-15 00:00 :00 No [id number] 1{tbl} Take 1 tablet by mouth daily. [facility] buPROPion XL (WELLBUTRIN XL) 150 mg 24 hr tablet 08-12 00:00: 01-04 00:00 :00 No [id number] 150mg Take 1 tablet by mouth daily. [facility] acetaminoph en 325 mg tablet 07-22 00:00: 01-04 00:00 :00 No [id number] 650mg Take 2 tablets by mouth every 6 (six) hours as needed for Pain (scale 1-3) or Pain (scale 4-6). [facility] vitamin w/FA tablet 07-22 00:00: 00 01-04 00:00 :00 No [id number] 1{tbl} Take 1 tablet by mouth daily. [facility] docusate calcium 240 mg capsule 07-22 00:00: 00 01-04 00:00 :00 No [id number] 240mg Take 1 capsule by mouth once daily as needed for Constipati on. [facility] ferrous sulfate 325 mg (65 mg iron) tablet 07-22 00:00: 00 01-04 00:00 :00 No [id number] 325mg Take 1 tablet by mouth 2 (two) times daily. [facility] ibuprofen 600 mg tablet 07-22 00:00: 00 01-04 00:00 :00 No [id number] 600mg Take 1 tablet by mouth every 6 (six) hours as needed (Pain). Take with food or milk. [facility] ALBUTEROL 90 mcg/actuati on inhaler 14 00:00: 00 05-01 00:00 :00 No [id number] 103 INHALE 2 PUFFS BY MOUTH EVERY 6 HOURS NEEDED FOR WHEEZING FOR SHORTNESS OF BREATH [facility] buPROPion SR (WELLBUTRIN SR) 150 mg SR tablet 05-21 00:00: 00 01-04 00:00 :00 No [id number] 150mg Take 1 tablet by mouth 2 (two) times daily. [facility] busPIRone 10 mg tablet 05-21 00:00: 00 01-04 00:00 :00 No [id number] 109 10mg Take 1 tablet by mouth 3 (three) times daily. [facility] Immunizations Ordered Immunization Name Filled Immunization Name Date Status Comments Source Influenza Virus Vaccine Quad IM, Preserv and ABX Free 6 MO-64 YRS 2022-02-27 00:00:[address] [facility] Influenza Virus Vaccine Quad IM, Preserv and ABX Free 6 MO-64 YRS 2022-02-27 00:00:[address] [facility] Influenza Virus Vaccine Quad IM, Preserv and ABX Free 6 MO-64 YRS 2022-02-27 00:00:[address] [facility] Influenza Virus Vaccine Quad IM, Preserv and ABX Free 6 MO-64 YRS 2022-02-27 00:00:[address] [facility] Influenza Virus Vaccine Quad IM, Preserv and ABX Free 6 MO-64 YRS 2022-02-27 00:00:[address] [facility] Influenza Virus Vaccine Quad IM, Preserv and ABX Free 6 MO-64 YRS 2022-02-27 00:00:[address] [facility] Influenza Virus Vaccine Quad IM, Preserv and ABX Free 6 MO-64 YRS 2022-02-27 00:00:[address] [facility] Influenza Virus Vaccine Quad IM, Preserv and ABX Free 6 MO-64 YRS 2022-02-27 00:00:[address] [facility] Influenza Virus Vaccine Quad IM, Preserv and ABX Free 6 MO-64 YRS 2022-02-27 00:00:[address] [facility] Influenza Virus Vaccine Quad IM, Preserv and ABX Free 6 MO-64 YRS 2022-02-27 00:00:[address] [facility] Influenza Virus Vaccine Quad IM, Preserv and ABX Free 6 MO-64 YRS 2022-02-27 00:00:[address] [facility] Influenza Virus Vaccine Quad IM, Preserv and ABX Free 6 MO-64 YRS 2022-02-27 00:00:[address] [facility] Influenza Virus Vaccine Quad IM, Preserv and ABX Free 6 MO-64 YRS 2022-02-27 00:00:[address] [facility] Influenza Virus Vaccine Quad IM, Preserv and ABX Free 6 MO-64 YRS 2022-02-27 00:00:[address] [facility] Influenza Virus Vaccine Quad IM, Preserv and ABX Free 6 MO-64 YRS 2022-02-27 00:00:[address] [facility] Influenza Virus Vaccine Quad IM, Preserv and ABX Free 6 MO-64 YRS 2022-02-27 00:00:[address] [facility] Influenza Virus Vaccine Quad IM, Preserv and ABX Free 6 MO-64 YRS 2022-02-27 00:00:[address] [facility] Influenza Virus Vaccine Quad IM, Preserv and ABX Free 6 MO-64 YRS 2022-02-27 00:00:[address] [facility] Influenza Virus Vaccine Quad IM, Preserv and ABX Free 6 MO-64 YRS 2022-02-27 00:00:[address] [facility] Influenza Virus Vaccine Quad IM, Preserv and ABX Free 6 MO-64 YRS 2022-02-27 00:00:[address] [facility] Influenza Virus Vaccine Quad IM, Preserv and ABX Free 6 MO-64 YRS 2022-02-27 00:00:[address] [facility] Influenza Virus Vaccine Quad IM, Preserv and ABX Free 6 MO-64 YRS 2022-02-27 00:00:[address] [facility] Influenza Virus Vaccine Quad IM, Preserv and ABX Free 6 MO-64 YRS 2022-02-27 00:00:[address] [facility] Influenza Virus Vaccine Quad IM, Preserv and ABX Free 6 MO-64 YRS 2022-02-27 00:00:[address] [facility] Influenza Virus Vaccine Quad IM, Preserv and ABX Free 6 MO-64 YRS 2022-02-27 00:00:[address] [facility] Influenza Virus Vaccine Quad IM, Preserv and ABX Free 6 MO-64 YRS 2022-02-27 00:00:[address] [facility] Influenza Virus Vaccine Quad IM, Preserv and ABX Free 6 MO-64 YRS 2022-02-27 00:00:[address] [facility] Influenza Virus Vaccine Quad IM, Preserv and ABX Free 6 MO-64 YRS 2022-02-27 00:00:[address] [facility] Influenza Virus Vaccine Quad IM, Preserv and ABX Free 6 MO-64 YRS 2022-02-27 00:00:[address] [facility] Influenza Virus Vaccine Quad IM, Preserv and ABX Free 6 MO-64 YRS 2022-02-27 00:00:[address] [facility] Influenza Virus Vaccine Quad IM, Preserv and ABX Free 6 MO-64 YRS 2022-02-27 00:00:[address] [facility] Influenza Virus Vaccine Quad IM, Preserv and ABX Free 6 MO-64 YRS 2022-02-27 00:00:[address] [facility] Influenza Virus Vaccine Quad IM, Preserv and ABX Free 6 MO-64 YRS 2022-02-27 00:00:[address] [facility] Influenza Virus Vaccine Quad IM, Preserv and ABX Free 6 MO-64 YRS 2022-02-27 00:00:[address] [facility] Influenza Virus Vaccine Quad IM, Preserv and ABX Free 6 MO-64 YRS 2022-02-27 00:00:[address] [facility] Influenza Virus Vaccine Quad IM, Preserv and ABX Free 6 MO-64 YRS 2022-02-27 00:00:[address] [facility] Influenza Virus Vaccine Quad IM, Preserv and ABX Free 6 MO-64 YRS 2022-02-27 00:00:[address] [facility] Influenza Virus Vaccine Quad IM, Preserv and ABX Free 6 MO-64 YRS 2022-02-27 00:00:[address] [facility] Influenza Virus Vaccine Quad IM, Preserv and ABX Free 6 MO-64 YRS 2022-02-27 00:00:[address] [facility] Influenza Virus Vaccine Quad IM, Preserv and ABX Free 6 MO-64 YRS 2022-02-27 00:00:[address] [facility] Influenza Virus Vaccine Quad IM, Preserv and ABX Free 6 MO-64 YRS 2022-02-27 00:00:[address] [facility] Influenza Virus Vaccine Quad IM, Preserv and ABX Free 6 MO-64 YRS 2022-02-27 00:00:[address] [facility] Influenza Virus Vaccine Quad IM, Preserv and ABX Free 6 MO-64 YRS 2022-02-27 00:00:[address] [facility] Influenza Virus Vaccine Quad IM, Preserv and ABX Free 6 MO-64 YRS 2022-02-27 00:00:[address] [facility] Influenza Virus Vaccine Quad IM, Preserv and ABX Free 6 MO-64 YRS 2022-02-27 00:00:[address] [facility] Influenza Virus Vaccine Quad IM, Preserv and ABX Free 6 MO-64 YRS 2022-02-27 00:00:[address] [facility] Influenza Virus Vaccine Quad IM, Preserv and ABX Free 6 MO-64 YRS 2022-02-27 00:00:[address] [facility] Influenza Virus Vaccine Quad IM, Preserv and ABX Free 6 MO-64 YRS 2022-02-27 00:00:[address] [facility] Influenza Virus Vaccine Quad IM, Preserv and ABX Free 6 MO-64 YRS 2022-02-27 00:00:[address] [facility] Influenza Virus Vaccine Quad IM, Preserv and ABX Free 6 MO-64 YRS (FLUCELVAX) 2022-02-27 00:00:[address] [facility] Influenza Virus Vaccine Quad IM, Preserv and ABX Free 6 MO-64 YRS (FLUCELVAX) 2022-02-27 00:00:[address] [facility] Influenza Virus Vaccine Quad IM, Preserv and ABX Free 6 MO-64 YRS (FLUCELVAX) 2022-02-27 00:00:[address] [facility] Influenza Virus Vaccine Quad .5 mL IM 6+ MO 2022-02-21 00:00:[address] [facility] Influenza Virus Vaccine Quad .5 mL IM 6+ MO 2022-02-21 00:00:[address] [facility] Influenza Virus Vaccine Quad .5 mL IM 6+ MO 2022-02-21 00:00:[address] [facility] Influenza Virus Vaccine Quad .5 mL IM 6+ MO 2022-02-21 00:00:[address] [facility] Influenza Virus Vaccine Quad .5 mL IM 6+ MO 2022-02-21 00:00:[address] [facility] Influenza Virus Vaccine Quad .5 mL IM 6+ MO 2022-02-21 00:00:[address] [facility] Influenza Virus Vaccine Quad .5 mL IM 6+ MO 2022-02-21 00:00:[address] [facility] Influenza Virus Vaccine Quad .5 mL IM 6+ MO 2022-02-21 00:00:[address] [facility] Influenza Virus Vaccine Quad .5 mL IM 6+ MO 2022-02-21 00:00:[address] [facility] Influenza Virus Vaccine Quad .5 mL IM 6+ MO 2022-02-21 00:00:[address] [facility] Influenza Virus Vaccine Quad .5 mL IM 6+ MO 2022-02-21 00:00:[address] [facility] Influenza Virus Vaccine Quad .5 mL IM 6+ MO 2022-02-21 00:00:[address] [facility] Influenza Virus Vaccine Quad .5 mL IM 6+ MO 2022-02-21 00:00:[address] [facility] Influenza Virus Vaccine Quad .5 mL IM 6+ MO (FLUZONE/FLULAVAL/F LUARIX) 2022-02-21 00:00:[address] [facility] Influenza Virus Vaccine Quad .5 mL IM 6+ MO (FLUZONE/FLULAVAL/F LUARIX) 2022-02-21 00:00:[address] [facility] Influenza Virus Vaccine Quad .5 mL IM 6+ MO (FLUZONE/FLULAVAL/F LUARIX) 2022-02-21 00:00:[address] [facility] Influenza Virus Vaccine 2021-06-11 00:00:[address] [facility] Influenza Virus Vaccine 2021-06-11 00:00:00 Completed [facility] Influenza Virus Vaccine 2021-06-11 00:00:[address] [facility] Influenza Virus Vaccine 2021-06-11 00:00:[address] [facility] Influenza Virus Vaccine 2021-06-11 00:00:[address] [facility] Influenza Virus Vaccine 2021-06-11 00:00:[address] [facility] Influenza Virus Vaccine 2021-06-11 00:00:[address] [facility] Influenza Virus Vaccine 2021-06-11 00:00:[address] [facility] Influenza Virus Vaccine 2021-06-11 00:00:[address] [facility] Influenza Virus Vaccine 2021-06-11 00:00:[address] [facility] Influenza Virus Vaccine 2021-06-11 00:00:[address] [facility] Influenza Virus Vaccine 2021-06-11 00:00:[address] [facility] Influenza Virus Vaccine 2021-06-11 00:00:[address] [facility] Influenza Virus Vaccine 2021-06-11 00:00:[address] [facility] Influenza Virus Vaccine 2021-06-11 00:00:[address] [facility] Influenza Virus Vaccine 2021-06-11 00:00:[address] [facility] Influenza Virus Vaccine 2021-06-11 00:00:[address] [facility] Influenza Virus Vaccine 2021-06-11 00:00:[address] [facility] Influenza Virus Vaccine 2021-06-11 00:00:[address] [facility] Influenza Virus Vaccine 2021-06-11 00:00:[address] [facility] Influenza Virus Vaccine 2021-06-11 00:00:[address] [facility] Influenza Virus Vaccine 2021-06-11 00:00:[address] [facility] Influenza Virus Vaccine 2021-06-11 00:00:[address] [facility] Influenza Virus Vaccine 2021-06-11 00:00:00 Completed [facility] Influenza Virus Vaccine 2021-06-11 00:00:[address] [facility] Influenza Virus Vaccine 2021-06-11 00:00:[address] [facility] Influenza Virus Vaccine 2021-06-11 00:00:00 Completed [facility] Influenza Virus Vaccine 2021-06-11 00:00:[address] [facility] Influenza Virus Vaccine 2021-06-11 00:00:[address] [facility] Influenza Virus Vaccine 2021-06-11 00:00:[address] [facility] Influenza Virus Vaccine 2021-06-11 00:00:[address] [facility] Influenza Virus Vaccine 2021-06-11 00:00:[address] [facility] Influenza Virus Vaccine 2021-06-11 00:00:[address] [facility] Influenza Virus Vaccine 2021-06-11 00:00:[address] [facility] Influenza Virus Vaccine 2021-06-11 00:00:[address] [facility] Influenza Virus Vaccine 2021-06-11 00:00:[address] [facility] Influenza Virus Vaccine 2021-06-11 00:00:[address] [facility] Influenza Virus Vaccine 2021-06-11 00:00:[address] [facility] Influenza Virus Vaccine 2021-06-11 00:00:[address] [facility] Influenza Virus Vaccine 2021-06-11 00:00:[address] [facility] Influenza Virus Vaccine 2021-06-11 00:00:[address] [facility] Influenza Virus Vaccine 2021-06-11 00:00:[address] [facility] Influenza Virus Vaccine 2021-06-11 00:00:[address] [facility] Influenza Virus Vaccine 2021-06-11 00:00:[address] [facility] Influenza Virus Vaccine 2021-06-11 00:00:[address] [facility] Influenza Virus Vaccine 2021-06-11 00:00:[address] [facility] Influenza Virus Vaccine 2021-06-11 00:00:[address] [facility] Influenza Virus Vaccine 2021-06-11 00:00:[address] [facility] Influenza Virus Vaccine Quad .5 mL IM 6+ MO 2021-06-11 00:00:[address] [facility] Influenza Virus Vaccine 2021-06-11 00:00:[address] [facility] Influenza Virus Vaccine Quad .5 mL IM 6+ MO 2021-06-11 00:00:[address] [facility] Influenza Virus Vaccine 2021-06-11 00:00:[address] [facility] Influenza Virus Vaccine Quad .5 mL IM 6+ MO 2021-06-11 00:00:[address] [facility] Influenza Virus Vaccine 2021-06-11 00:00:[address] [facility] Influenza Virus Vaccine Quad .5 mL IM 6+ MO 2021-06-11 00:00:[address] [facility] Influenza Virus Vaccine 2021-06-11 00:00:[address] [facility] Influenza Virus Vaccine Quad .5 mL IM 6+ MO 2021-06-11 00:00:[address] [facility] Influenza Virus Vaccine 2021-06-11 00:00:[address] [facility] Influenza Virus Vaccine Quad .5 mL IM 6+ MO 2021-06-11 00:00:[address] [facility] Influenza Virus Vaccine 2021-06-11 00:00:[address] [facility] Influenza Virus Vaccine Quad .5 mL IM 6+ MO 2021-06-11 00:00:[address] [facility] Influenza Virus Vaccine 2021-06-11 00:00:[address] [facility] Influenza Virus Vaccine Quad .5 mL IM 6+ MO 2021-06-11 00:00:[address] [facility] Influenza Virus Vaccine 2021-06-11 00:00:[address] [facility] Influenza Virus Vaccine Quad .5 mL IM 6+ MO 2021-06-11 00:00:[address] [facility] Influenza Virus Vaccine 2021-06-11 00:00:[address] [facility] Influenza Virus Vaccine Quad .5 mL IM 6+ MO 2021-06-11 00:00:[address] [facility] Influenza Virus Vaccine 2021-06-11 00:00:[address] [facility] Influenza Virus Vaccine Quad .5 mL IM 6+ MO 2021-06-11 00:00:[address] [facility] Influenza Virus Vaccine 2021-06-11 00:00:[address] [facility] Influenza Virus Vaccine Quad .5 mL IM 6+ MO 2021-06-11 00:00:[address] [facility] Influenza Virus Vaccine 2021-06-11 00:00:[address] [facility] Influenza Virus Vaccine Quad .5 mL IM 6+ MO 2021-06-11 00:00:[address] [facility] Influenza Virus Vaccine 2021-06-11 00:00:[address] [facility] Influenza Virus Vaccine Quad .5 mL IM 6+ MO (FLUZONE/FLULAVAL/F LUARIX) 2021-06-11 00:00:[address] [facility] Influenza Virus Vaccine 2021-06-11 00:00:[address] [facility] Influenza Virus Vaccine Quad .5 mL IM 6+ MO (FLUZONE/FLULAVAL/F LUARIX) 2021-06-11 00:00:[address] [facility] Influenza Virus Vaccine 2021-06-11 00:00:[address] [facility] Influenza Virus Vaccine Quad .5 mL IM 6+ MO (FLUZONE/FLULAVAL/F LUARIX) 2021-06-11 00:00:[address] [facility] Influenza Virus Vaccine 2020-05-19 00:00:[address] [facility] Influenza Virus Vaccine 2020-05-19 00:00:[address] [facility] Influenza Virus Vaccine 2020-05-19 00:00:[address] [facility] Influenza Virus Vaccine 2020-05-19 00:00:[address] [facility] Influenza Virus Vaccine 2020-05-19 00:00:[address] [facility] Influenza Virus Vaccine 2020-05-19 00:00:[address] [facility] Influenza Virus Vaccine 2020-05-19 00:00:[address] [facility] Influenza Virus Vaccine 2020-05-19 00:00:[address] [facility] Influenza Virus Vaccine 2020-05-19 00:00:[address] [facility] Influenza Virus Vaccine 2020-05-19 00:00:[address] [facility] Influenza Virus Vaccine 2020-05-19 00:00:[address] [facility] Influenza Virus Vaccine 2020-05-19 00:00:[address] [facility] Influenza Virus Vaccine 2020-05-19 00:00:[address] [facility] Influenza Virus Vaccine 2020-05-19 00:00:[address] [facility] Influenza Virus Vaccine 2020-05-19 00:00:[address] [facility] Influenza Virus Vaccine 2020-05-19 00:00:[address] [facility] Influenza Virus Vaccine 2020-05-19 00:00:[address] [facility] Influenza Virus Vaccine 2020-05-19 00:00:[address] [facility] Influenza Virus Vaccine 2020-05-19 00:00:[address] [facility] Influenza Virus Vaccine 2020-05-19 00:00:[address] [facility] Influenza Virus Vaccine 2020-05-19 00:00:[address] [facility] Influenza Virus Vaccine 2020-05-19 00:00:[address] [facility] Influenza Virus Vaccine 2020-05-19 00:00:[address] [facility] Influenza Virus Vaccine 2020-05-19 00:00:[address] [facility] Influenza Virus Vaccine 2020-05-19 00:00:[address] [facility] Influenza Virus Vaccine 2020-05-19 00:00:[address] [facility] Influenza Virus Vaccine 2020-05-19 00:00:[address] [facility] Influenza Virus Vaccine 2020-05-19 00:00:[address] [facility] Influenza Virus Vaccine 2020-05-19 00:00:[address] [facility] Influenza Virus Vaccine 2020-05-19 00:00:[address] [facility] Influenza Virus Vaccine 2020-05-19 00:00:[address] [facility] Influenza Virus Vaccine 2020-05-19 00:00:[address] [facility] Influenza Virus Vaccine 2020-05-19 00:00:[address] [facility] Influenza Virus Vaccine 2020-05-19 00:00:[address] [facility] Influenza Virus Vaccine 2020-05-19 00:00:[address] [facility] Influenza Virus Vaccine 2020-05-19 00:00:[address] [facility] Influenza Virus Vaccine 2020-05-19 00:00:[address] [facility] Influenza Virus Vaccine 2020-05-19 00:00:[address] [facility] Influenza Virus Vaccine 2020-05-19 00:00:[address] [facility] Influenza Virus Vaccine 2020-05-19 00:00:[address] [facility] Influenza Virus Vaccine 2020-05-19 00:00:[address] [facility] Influenza Virus Vaccine 2020-05-19 00:00:[address] [facility] Influenza Virus Vaccine 2020-05-19 00:00:[address] [facility] Influenza Virus Vaccine 2020-05-19 00:00:[address] [facility] Influenza Virus Vaccine 2020-05-19 00:00:[address] [facility] Influenza Virus Vaccine 2020-05-19 00:00:[address] [facility] Influenza Virus Vaccine 2020-05-19 00:00:[address] [facility] Influenza Virus Vaccine 2020-05-19 00:00:[address] [facility] Influenza Virus Vaccine 2020-05-19 00:00:[address] [facility] Influenza Virus Vaccine 2020-05-19 00:00:[address] [facility] Influenza Virus Vaccine 2020-05-19 00:00:[address] [facility] Influenza Virus Vaccine 2020-05-19 00:00:[address] [facility] Influenza Virus Vaccine 2020-05-19 00:00:[address] [facility] Influenza Virus Vaccine 2020-05-19 00:00:[address] [facility] Influenza Virus Vaccine 2020-05-19 00:00:[address] [facility] Influenza Virus Vaccine 2020-05-19 00:00:[address] [facility] Influenza Virus Vaccine 2020-05-19 00:00:[address] [facility] Influenza Virus Vaccine 2020-05-19 00:00:[address] [facility] Influenza Virus Vaccine 2020-05-19 00:00:[address] [facility] Influenza Virus Vaccine 2020-05-19 00:00:[address] [facility] Influenza Virus Vaccine 2020-05-19 00:00:[address] [facility] Influenza Virus Vaccine 2020-05-19 00:00:[address] [facility] Influenza Virus Vaccine 2020-05-19 00:00:[address] [facility] Influenza Virus Vaccine Recomb Quad IM, Preserv and ABX Free 18-64 YRS 2020-05-16 00:00:[address] [facility] Influenza Virus Vaccine Recomb Quad IM, Preserv and ABX Free 18-64 YRS 2020-05-16 00:00:[address] [facility] Influenza Virus Vaccine Recomb Quad IM, Preserv and ABX Free 18-64 YRS 2020-05-16 00:00:[address] [facility] Influenza Virus Vaccine Recomb Quad IM, Preserv and ABX Free 18-64 YRS 2020-05-16 00:00:[address] [facility] Influenza Virus Vaccine Recomb Quad IM, Preserv and ABX Free 18-64 YRS 2020-05-16 00:00:[address] [facility] Influenza Virus Vaccine Recomb Quad IM, Preserv and ABX Free 18-64 YRS 2020-05-16 00:00:[address] [facility] Influenza Virus Vaccine Recomb Quad IM, Preserv and ABX Free 18-64 YRS 2020-05-16 00:00:[address] [facility] Influenza Virus Vaccine Recomb Quad IM, Preserv and ABX Free 18-64 YRS 2020-05-16 00:00:[address] [facility] Influenza Virus Vaccine Recomb Quad IM, Preserv and ABX Free 18-64 YRS 2020-05-16 00:00:[address] [facility] Influenza Virus Vaccine Recomb Quad IM, Preserv and ABX Free 18-64 YRS 2020-05-16 00:00:[address] [facility] Influenza Virus Vaccine Recomb Quad IM, Preserv and ABX Free 18-64 YRS 2020-05-16 00:00:[address] [facility] Influenza Virus Vaccine Recomb Quad IM, Preserv and ABX Free 18-64 YRS 2020-05-16 00:00:[address] [facility] Influenza Virus Vaccine Recomb Quad IM, Preserv and ABX Free 18-64 YRS 2020-05-16 00:00:[address] [facility] Influenza Virus Vaccine Recomb Quad IM, Preserv and ABX Free 18-64 YRS 2020-05-16 00:00:[address] [facility] Influenza Virus Vaccine Recomb Quad IM, Preserv and ABX Free 18-64 YRS 2020-05-16 00:00:[address] [facility] Influenza Virus Vaccine Recomb Quad IM, Preserv and ABX Free 18-64 YRS 2020-05-16 00:00:[address] [facility] Influenza Virus Vaccine Recomb Quad IM, Preserv and ABX Free 18-64 YRS 2020-05-16 00:00:[address] [facility] Influenza Virus Vaccine Recomb Quad IM, Preserv and ABX Free 18-64 YRS 2020-05-16 00:00:[address] [facility] Influenza Virus Vaccine Recomb Quad IM, Preserv and ABX Free 18-64 YRS 2020-05-16 00:00:[address] [facility] Influenza Virus Vaccine Recomb Quad IM, Preserv and ABX Free 18-64 YRS 2020-05-16 00:00:[address] [facility] Influenza Virus Vaccine Recomb Quad IM, Preserv and ABX Free 18-64 YRS 2020-05-16 00:00:[address] [facility] Influenza Virus Vaccine Recomb Quad IM, Preserv and ABX Free 18-64 YRS 2020-05-16 00:00:[address] [facility] Influenza Virus Vaccine Recomb Quad IM, Preserv and ABX Free 18-64 YRS 2020-05-16 00:00:[address] [facility] Influenza Virus Vaccine Recomb Quad IM, Preserv and ABX Free 18-64 YRS 2020-05-16 00:00:[address] [facility] Influenza Virus Vaccine Recomb Quad IM, Preserv and ABX Free 18-64 YRS 2020-05-16 00:00:[address] [facility] Influenza Virus Vaccine Recomb Quad IM, Preserv and ABX Free 18-64 YRS 2020-05-16 00:00:[address] [facility] Influenza Virus Vaccine Recomb Quad IM, Preserv and ABX Free 18-64 YRS 2020-05-16 00:00:[address] [facility] Influenza Virus Vaccine Recomb Quad IM, Preserv and ABX Free 18-64 YRS 2020-05-16 00:00:[address] [facility] Influenza Virus Vaccine Recomb Quad IM, Preserv and ABX Free 18-64 YRS 2020-05-16 00:00:[address] [facility] Influenza Virus Vaccine Recomb Quad IM, Preserv and ABX Free 18-64 YRS 2020-05-16 00:00:[address] [facility] Influenza Virus Vaccine Recomb Quad IM, Preserv and ABX Free 18-64 YRS 2020-05-16 00:00:[address] [facility] Influenza Virus Vaccine Recomb Quad IM, Preserv and ABX Free 18-64 YRS 2020-05-16 00:00:[address] [facility] Influenza Virus Vaccine Recomb Quad IM, Preserv and ABX Free 18-64 YRS 2020-05-16 00:00:[address] [facility] Influenza Virus Vaccine Recomb Quad IM, Preserv and ABX Free 18-64 YRS 2020-05-16 00:00:[address] [facility] Influenza Virus Vaccine Recomb Quad IM, Preserv and ABX Free 18-64 YRS 2020-05-16 00:00:[address] [facility] Influenza Virus Vaccine Recomb Quad IM, Preserv and ABX Free 18-64 YRS 2020-05-16 00:00:[address] [facility] Influenza Virus Vaccine Recomb Quad IM, Preserv and ABX Free 18-64 YRS 2020-05-16 00:00:[address] [facility] Influenza Virus Vaccine Recomb Quad IM, Preserv and ABX Free 18-64 YRS 2020-05-16 00:00:[address] [facility] Influenza Virus Vaccine Recomb Quad IM, Preserv and ABX Free 18-64 YRS 2020-05-16 00:00:[address] [facility] Influenza Virus Vaccine Recomb Quad IM, Preserv and ABX Free 18-64 YRS 2020-05-16 00:00:[address] [facility] Influenza Virus Vaccine Recomb Quad IM, Preserv and ABX Free 18-64 YRS 2020-05-16 00:00:[address] [facility] Influenza Virus Vaccine Recomb Quad IM, Preserv and ABX Free 18-64 YRS 2020-05-16 00:00:[address] [facility] Influenza Virus Vaccine Recomb Quad IM, Preserv and ABX Free 18-64 YRS 2020-05-16 00:00:[address] [facility] Influenza Virus Vaccine Recomb Quad IM, Preserv and ABX Free 18-64 YRS 2020-05-16 00:00:[address] [facility] Influenza Virus Vaccine Recomb Quad IM, Preserv and ABX Free 18-64 YRS 2020-05-16 00:00:[address] [facility] Influenza Virus Vaccine Recomb Quad IM, Preserv and ABX Free 18-64 YRS 2020-05-16 00:00:[address] [facility] Influenza Virus Vaccine Recomb Quad IM, Preserv and ABX Free 18-64 YRS 2020-05-16 00:00:[address] [facility] Influenza Virus Vaccine Recomb Quad IM, Preserv and ABX Free 18-64 YRS 2020-05-16 00:00:[address] [facility] Influenza Virus Vaccine Recomb Quad IM, Preserv and ABX Free 18-64 YRS 2020-05-16 00:00:[address] [facility] Influenza Virus Vaccine Recomb Quad IM, Preserv and ABX Free 18-64 YRS 2020-05-16 00:00:[address] [facility] Influenza Virus Vaccine Recomb Quad IM, Preserv and ABX Free 18-64 YRS 2020-05-16 00:00:[address] [facility] Influenza Virus Vaccine Recomb Quad IM, Preserv and ABX Free 18-64 YRS 2020-05-16 00:00:[address] [facility] Influenza Virus Vaccine Recomb Quad IM, Preserv and ABX Free 18-64 YRS 2020-05-16 00:00:[address] [facility] Influenza Virus Vaccine Recomb Quad IM, Preserv and ABX Free 18-64 YRS 2020-05-16 00:00:[address] [facility] Influenza Virus Vaccine Recomb Quad IM, Preserv and ABX Free 18-64 YRS 2020-05-16 00:00:[address] [facility] Influenza Virus Vaccine Recomb Quad IM, Preserv and ABX Free 18-64 YRS 2020-05-16 00:00:[address] [facility] Influenza Virus Vaccine Recomb Quad IM, Preserv and ABX Free 18-64 YRS 2020-05-16 00:00:[address] [facility] Influenza Virus Vaccine Recomb Quad IM, Preserv and ABX Free 18-64 YRS 2020-05-16 00:00:[address] [facility] Influenza Virus Vaccine Recomb Quad IM, Preserv and ABX Free 18-64 YRS 2020-05-16 00:00:[address] [facility] Influenza Virus Vaccine Recomb Quad IM, Preserv and ABX Free 18-64 YRS 2020-05-16 00:00:[address] [facility] Influenza Virus Vaccine Recomb Quad IM, Preserv and ABX Free 18-64 YRS 2020-05-16 00:00:[address] [facility] Influenza Virus Vaccine Recomb Quad IM, Preserv and ABX Free 18-64 YRS 2020-05-16 00:00:[address] [facility] Influenza Virus Vaccine Recomb Quad IM, Preserv and ABX Free 18-64 YRS 2020-05-16 00:00:[address] [facility] TDAP (ADACEL) VACCINE 2019-05-21 00:00:[address] [facility] TDAP (ADACEL) VACCINE 2019-05-21 00:00:[address] [facility] TDAP (ADACEL) VACCINE 2019-05-21 00:00:[address] [facility] TDAP (ADACEL) VACCINE 2019-05-21 00:00:[address] [facility] TDAP (ADACEL) VACCINE 2019-05-21 00:00:[address] [facility] TDAP (ADACEL) VACCINE 2019-05-21 00:00:[address] [facility] TDAP (ADACEL) VACCINE 2019-05-21 00:00:[address] [facility] TDAP (ADACEL) VACCINE 2019-05-21 00:00:[address] [facility] TDAP (ADACEL) VACCINE 2019-05-21 00:00:[address] [facility] TDAP (ADACEL) VACCINE 2019-05-21 00:00:[address] [facility] TDAP (ADACEL) VACCINE 2019-05-21 00:00:[address] [facility] TDAP (ADACEL) VACCINE 2019-05-21 00:00:[address] [facility] TDAP (ADACEL) VACCINE 2019-05-21 00:00:[address] [facility] TDAP (ADACEL) VACCINE 2019-05-21 00:00:[address] [facility] TDAP (ADACEL) VACCINE 2019-05-21 00:00:[address] [facility] TDAP (ADACEL) VACCINE 2019-05-21 00:00:[address] [facility] TDAP (ADACEL) VACCINE 2019-05-21 00:00:[address] [facility] TDAP (ADACEL) VACCINE 2019-05-21 00:00:[address] [facility] TDAP (ADACEL) VACCINE 2019-05-21 00:00:[address] [facility] TDAP (ADACEL) VACCINE 2019-05-21 00:00:[address] [facility] TDAP (ADACEL) VACCINE 2019-05-21 00:00:[address] [facility] TDAP (ADACEL) VACCINE 2019-05-21 00:00:[address] [facility] TDAP (ADACEL) VACCINE 2019-05-21 00:00:[address] [facility] TDAP (ADACEL) VACCINE 2019-05-21 00:00:[address] [facility] TDAP (ADACEL) VACCINE 2019-05-21 00:00:[address] [facility] TDAP (ADACEL) VACCINE 2019-05-21 00:00:[address] [facility] TDAP (ADACEL) VACCINE 2019-05-21 00:00:[address] [facility] TDAP (ADACEL) VACCINE 2019-05-21 00:00:[address] [facility] TDAP (ADACEL) VACCINE 2019-05-21 00:00:[address] [facility] TDAP (ADACEL) VACCINE 2019-05-21 00:00:[address] [facility] TDAP (ADACEL) VACCINE 2019-05-21 00:00:[address] [facility] TDAP (ADACEL) VACCINE 2019-05-21 00:00:[address] [facility] TDAP (ADACEL) VACCINE 2019-05-21 00:00:[address] [facility] TDAP (ADACEL) VACCINE 2019-05-21 00:00:[address] [facility] TDAP (ADACEL) VACCINE 2019-05-21 00:00:[address] [facility] TDAP (ADACEL) VACCINE 2019-05-21 00:00:[address] [facility] TDAP (ADACEL) VACCINE 2019-05-21 00:00:[address] [facility] TDAP (ADACEL) VACCINE 2019-05-21 00:00:[address] [facility] TDAP (ADACEL) VACCINE 2019-05-21 00:00:[address] [facility] TDAP (ADACEL) VACCINE 2019-05-21 00:00:[address] [facility] TDAP (ADACEL) VACCINE 2019-05-21 00:00:[address] [facility] TDAP (ADACEL) VACCINE 2019-05-21 00:00:[address] [facility] TDAP (ADACEL) VACCINE 2019-05-21 00:00:[address] [facility] TDAP (ADACEL) VACCINE 2019-05-21 00:00:[address] [facility] TDAP (ADACEL) VACCINE 2019-05-21 00:00:[address] [facility] TDAP (ADACEL) VACCINE 2019-05-21 00:00:[address] [facility] TDAP (ADACEL) VACCINE 2019-05-21 00:00:[address] [facility] TDAP (ADACEL) VACCINE 2019-05-21 00:00:[address] [facility] TDAP (ADACEL) VACCINE 2019-05-21 00:00:[address] [facility] TDAP (ADACEL) VACCINE 2019-05-21 00:00:[address] [facility] TDAP (ADACEL) VACCINE 2019-05-21 00:00:[address] [facility] TDAP (ADACEL) VACCINE 2019-05-21 00:00:[address] [facility] TDAP (ADACEL) VACCINE 2019-05-21 00:00:[address] [facility] TDAP (ADACEL) VACCINE 2019-05-21 00:00:[address] [facility] TDAP (ADACEL) VACCINE 2019-05-21 00:00:[address] [facility] TDAP (ADACEL) VACCINE 2019-05-21 00:00:[address] [facility] TDAP (ADACEL) VACCINE 2019-05-21 00:00:[address] [facility] TDAP (ADACEL) VACCINE 2019-05-21 00:00:[address] [facility] TDAP (ADACEL) VACCINE 2019-05-21 00:00:[address] [facility] TDAP (ADACEL) VACCINE 2019-05-21 00:00:[address] [facility] TDAP (ADACEL) VACCINE 2019-05-21 00:00:[address] [facility] TDAP (ADACEL) VACCINE 2019-05-21 00:00:[address] [facility] TDAP (ADACEL) VACCINE 2019-05-21 00:00:[address] [facility] Influenza Virus Vaccine Quad .5 mL IM 6+ MO 2019-02-06 00:00:[address] [facility] Influenza Virus Vaccine Quad .5 mL IM 6+ MO 2019-02-06 00:00:[address] [facility] Influenza Virus Vaccine Quad .5 mL IM 6+ MO 2019-02-06 00:00:[address] [facility] Influenza Virus Vaccine Quad .5 mL IM 6+ MO 2019-02-06 00:00:[address] [facility] Influenza Virus Vaccine Quad .5 mL IM 6+ MO 2019-02-06 00:00:[address] [facility] Influenza Virus Vaccine Quad .5 mL IM 6+ MO 2019-02-06 00:00:[address] [facility] Influenza Virus Vaccine Quad .5 mL IM 6+ MO 2019-02-06 00:00:[address] [facility] Influenza Virus Vaccine Quad .5 mL IM 6+ MO 2019-02-06 00:00:[address] [facility] Influenza Virus Vaccine Quad .5 mL IM 6+ MO 2019-02-06 00:00:[address] [facility] Influenza Virus Vaccine Quad .5 mL IM 6+ MO 2019-02-06 00:00:[address] [facility] Influenza Virus Vaccine Quad .5 mL IM 6+ MO 2019-02-06 00:00:[address] [facility] Influenza Virus Vaccine Quad .5 mL IM 6+ MO 2019-02-06 00:00:[address] [facility] Influenza Virus Vaccine Quad .5 mL IM 6+ MO 2019-02-06 00:00:[address] [facility] Influenza Virus Vaccine Quad .5 mL IM 6+ MO 2019-02-06 00:00:[address] [facility] Influenza Virus Vaccine Quad .5 mL IM 6+ MO 2019-02-06 00:00:[address] [facility] Influenza Virus Vaccine Quad .5 mL IM 6+ MO 2019-02-06 00:00:[address] [facility] Influenza Virus Vaccine Quad .5 mL IM 6+ MO 2019-02-06 00:00:[address] [facility] Influenza Virus Vaccine Quad .5 mL IM 6+ MO 2019-02-06 00:00:[address] [facility] Influenza Virus Vaccine Quad .5 mL IM 6+ MO 2019-02-06 00:00:[address] [facility] Influenza Virus Vaccine Quad .5 mL IM 6+ MO 2019-02-06 00:00:[address] [facility] Influenza Virus Vaccine Quad .5 mL IM 6+ MO 2019-02-06 00:00:[address] [facility] Influenza Virus Vaccine Quad .5 mL IM 6+ MO 2019-02-06 00:00:[address] [facility] Influenza Virus Vaccine Quad .5 mL IM 6+ MO 2019-02-06 00:00:[address] [facility] Influenza Virus Vaccine Quad .5 mL IM 6+ MO 2019-02-06 00:00:[address] [facility] Influenza Virus Vaccine Quad .5 mL IM 6+ MO 2019-02-06 00:00:[address] [facility] Influenza Virus Vaccine Quad .5 mL IM 6+ MO 2019-02-06 00:00:[address] [facility] Influenza Virus Vaccine Quad .5 mL IM 6+ MO 2019-02-06 00:00:[address] [facility] Influenza Virus Vaccine Quad .5 mL IM 6+ MO 2019-02-06 00:00:[address] [facility] Influenza Virus Vaccine Quad .5 mL IM 6+ MO 2019-02-06 00:00:[address] [facility] Influenza Virus Vaccine Quad .5 mL IM 6+ MO 2019-02-06 00:00:[address] [facility] Influenza Virus Vaccine Quad .5 mL IM 6+ MO 2019-02-06 00:00:[address] [facility] Influenza Virus Vaccine Quad .5 mL IM 6+ MO 2019-02-06 00:00:[address] [facility] Influenza Virus Vaccine Quad .5 mL IM 6+ MO 2019-02-06 00:00:[address] [facility] Influenza Virus Vaccine Quad .5 mL IM 6+ MO 2019-02-06 00:00:[address] [facility] Influenza Virus Vaccine Quad .5 mL IM 6+ MO 2019-02-06 00:00:[address] [facility] Influenza Virus Vaccine Quad .5 mL IM 6+ MO 2019-02-06 00:00:[address] [facility] Influenza Virus Vaccine Quad .5 mL IM 6+ MO 2019-02-06 00:00:[address] [facility] Influenza Virus Vaccine Quad .5 mL IM 6+ MO 2019-02-06 00:00:[address] [facility] Influenza Virus Vaccine Quad .5 mL IM 6+ MO 2019-02-06 00:00:[address] [facility] Influenza Virus Vaccine Quad .5 mL IM 6+ MO 2019-02-06 00:00:[address] [facility] Influenza Virus Vaccine Quad .5 mL IM 6+ MO 2019-02-06 00:00:[address] [facility] Influenza Virus Vaccine Quad .5 mL IM 6+ MO 2019-02-06 00:00:[address] [facility] Influenza Virus Vaccine Quad .5 mL IM 6+ MO 2019-02-06 00:00:[address] [facility] Influenza Virus Vaccine Quad .5 mL IM 6+ MO 2019-02-06 00:00:[address] [facility] Influenza Virus Vaccine Quad .5 mL IM 6+ MO 2019-02-06 00:00:[address] [facility] Influenza Virus Vaccine Quad .5 mL IM 6+ MO 2019-02-06 00:00:[address] [facility] Influenza Virus Vaccine Quad .5 mL IM 6+ MO 2019-02-06 00:00:[address] [facility] Influenza Virus Vaccine Quad .5 mL IM 6+ MO 2019-02-06 00:00:[address] [facility] Influenza Virus Vaccine Quad .5 mL IM 6+ MO 2019-02-06 00:00:[address] [facility] Influenza Virus Vaccine Quad .5 mL IM 6+ MO 2019-02-06 00:00:[address] [facility] Influenza Virus Vaccine Quad .5 mL IM 6+ MO 2019-02-06 00:00:[address] [facility] Influenza Virus Vaccine Quad .5 mL IM 6+ MO 2019-02-06 00:00:[address] [facility] Influenza Virus Vaccine Quad .5 mL IM 6+ MO 2019-02-06 00:00:[address] [facility] Influenza Virus Vaccine Quad .5 mL IM 6+ MO 2019-02-06 00:00:[address] [facility] Influenza Virus Vaccine Quad .5 mL IM 6+ MO 2019-02-06 00:00:[address] [facility] Influenza Virus Vaccine Quad .5 mL IM 6+ MO 2019-02-06 00:00:[address] [facility] Influenza Virus Vaccine Quad .5 mL IM 6+ MO 2019-02-06 00:00:[address] [facility] Influenza Virus Vaccine Quad .5 mL IM 6+ MO 2019-02-06 00:00:[address] [facility] Influenza Virus Vaccine Quad .5 mL IM 6+ MO 2019-02-06 00:00:[address] [facility] Influenza Virus Vaccine Quad .5 mL IM 6+ MO 2019-02-06 00:00:[address] [facility] Influenza Virus Vaccine Quad .5 mL IM 6+ MO (FLUZONE/FLULAVAL/F LUARIX) 2019-02-06 00:00:[address] [facility] Influenza Virus Vaccine Quad .5 mL IM 6+ MO (FLUZONE/FLULAVAL/F LUARIX) 2019-02-06 00:00:[address] [facility] Influenza Virus Vaccine Quad .5 mL IM 6+ MO (FLUZONE/FLULAVAL/F LUARIX) 2019-02-06 00:00:[address] [facility] Influenza Virus Vaccine Quad .5 mL IM 6+ MO (FLUZONE/FLULAVAL/F LUARIX) Unknown Completed [facility] TDAP (ADACEL) VACCINE Unknown Completed [facility] Influenza Virus Vaccine Recomb Quad IM, Preserv and ABX Free 18-[address] [facility] Influenza Virus Vaccine Unknown Completed [facility] Influenza Virus Vaccine Unknown Completed [facility] Influenza Virus Vaccine Quad IM, Preserv and ABX Free 6 MO-64 YRS (FLUCELVAX) Unknown Completed [facility] Influenza Virus Vaccine Quad .5 mL IM 6+ MO (FLUZONE/FLULAVAL/F LUARIX) Unknown Completed [facility] Influenza Virus Vaccine Quad .5 mL IM 6+ MO (FLUZONE/FLULAVAL/F LUARIX) Unknown Completed [facility] Influenza Virus Vaccine Quad .5 mL IM 6+ MO (FLUZONE/FLULAVAL/F LUARIX) Unknown Completed [facility] TDAP (ADACEL) VACCINE Unknown Completed [facility] Influenza Virus Vaccine Recomb Quad IM, Preserv and ABX Free 18-[address] [facility] Influenza Virus Vaccine Unknown Completed [facility] Influenza Virus Vaccine Unknown Completed [facility] Influenza Virus Vaccine Quad IM, Preserv and ABX Free 6 MO-64 YRS (FLUCELVAX) Unknown Completed [facility] Influenza Virus Vaccine Quad .5 mL IM 6+ MO (FLUZONE/FLULAVAL/F LUARIX) Unknown Completed [facility] Influenza Virus Vaccine Quad .5 mL IM 6+ MO (FLUZONE/FLULAVAL/F LUARIX) Unknown Completed [facility] Influenza Virus Vaccine Quad .5 mL IM 6+ MO (FLUZONE/FLULAVAL/F LUARIX) Unknown Completed [facility] TDAP (ADACEL) VACCINE Unknown Completed [facility] Influenza Virus Vaccine Recomb Quad IM, Preserv and ABX Free 18-[address] [facility] Influenza Virus Vaccine Unknown Completed [facility] Influenza Virus Vaccine Unknown Completed [facility] Influenza Virus Vaccine Quad .5 mL IM 6+ MO (FLUZONE/FLULAVAL/F LUARIX) Unknown Completed [facility] Influenza Virus Vaccine Quad .5 mL IM 6+ MO (FLUZONE/FLULAVAL/F LUARIX) Unknown Completed [facility] TDAP (ADACEL) VACCINE Unknown Completed [facility] Influenza Virus Vaccine Recomb Quad IM, Preserv and ABX Free 18-[address] [facility] Influenza Virus Vaccine Unknown Completed [facility] Influenza Virus Vaccine Unknown Completed [facility] Influenza Virus Vaccine Quad .5 mL IM 6+ MO (FLUZONE/FLULAVAL/F LUARIX) Unknown Completed [facility] Influenza Virus Vaccine Quad .5 mL IM 6+ MO (FLUZONE/FLULAVAL/F LUARIX) Unknown Completed [facility] TDAP (ADACEL) VACCINE Unknown Completed [facility] Influenza Virus Vaccine Recomb Quad IM, Preserv and ABX Free 18-[address] [facility] Influenza Virus Vaccine Unknown Completed [facility] Influenza Virus Vaccine Unknown Completed [facility] Influenza Virus Vaccine Quad .5 mL IM 6+ MO (FLUZONE/FLULAVAL/F LUARIX) Unknown Completed [facility] Influenza Virus Vaccine Quad .5 mL IM 6+ MO (FLUZONE/FLULAVAL/F LUARIX) Unknown Completed [facility] TDAP (ADACEL) VACCINE Unknown Completed [facility] Influenza Virus Vaccine Recomb Quad IM, Preserv and ABX Free 18-[address] [facility] Influenza Virus Vaccine Unknown Completed [facility] Influenza Virus Vaccine Unknown Completed [facility] Influenza Virus Vaccine Quad .5 mL IM 6+ MO (FLUZONE/FLULAVAL/F LUARIX) Unknown Completed [facility] Influenza Virus Vaccine Quad .5 mL IM 6+ MO (FLUZONE/FLULAVAL/F LUARIX) Unknown Completed [facility] TDAP (ADACEL) VACCINE Unknown Completed [facility] Influenza Virus Vaccine Recomb Quad IM, Preserv and ABX Free 18-[address] [facility] Influenza Virus Vaccine Unknown Completed [facility] Influenza Virus Vaccine Unknown Completed [facility] Influenza Virus Vaccine Quad .5 mL IM 6+ MO (FLUZONE/FLULAVAL/F LUARIX) Unknown Completed [facility] Influenza Virus Vaccine Quad .5 mL IM 6+ MO (FLUZONE/FLULAVAL/F LUARIX) Unknown Completed [facility] TDAP (ADACEL) VACCINE Unknown Completed [facility] Influenza Virus Vaccine Recomb Quad IM, Preserv and ABX Free 18-[address] [facility] Influenza Virus Vaccine Unknown Completed [facility] Influenza Virus Vaccine Unknown Completed [facility] Influenza Virus Vaccine Quad .5 mL IM 6+ MO (FLUZONE/FLULAVAL/F LUARIX) Unknown Completed [facility] Influenza Virus Vaccine Quad .5 mL IM 6+ MO (FLUZONE/FLULAVAL/F LUARIX) Unknown Completed [facility] TDAP (ADACEL) VACCINE Unknown Completed [facility] Influenza Virus Vaccine Recomb Quad IM, Preserv and ABX Free 18-[address] [facility] Influenza Virus Vaccine Unknown Completed [facility] Influenza Virus Vaccine Unknown Completed [facility] Influenza Virus Vaccine Quad .5 mL IM 6+ MO (FLUZONE/FLULAVAL/F LUARIX) Unknown Completed [facility] Influenza Virus Vaccine Quad .5 mL IM 6+ MO (FLUZONE/FLULAVAL/F LUARIX) Unknown Completed [facility] TDAP (ADACEL) VACCINE Unknown Completed [facility] Influenza Virus Vaccine Recomb Quad IM, Preserv and ABX Free 18-[address] [facility] Influenza Virus Vaccine Unknown Completed [facility] Influenza Virus Vaccine Unknown Completed [facility] Influenza Virus Vaccine Quad .5 mL IM 6+ MO (FLUZONE/FLULAVAL/F LUARIX) Unknown Completed [facility] Influenza Virus Vaccine Quad .5 mL IM 6+ MO (FLUZONE/FLULAVAL/F LUARIX) Unknown Completed [facility] TDAP (ADACEL) VACCINE Unknown Completed [facility] Influenza Virus Vaccine Recomb Quad IM, Preserv and ABX Free 18-[address] [facility] Influenza Virus Vaccine Unknown Completed [facility] Influenza Virus Vaccine Unknown Completed [facility] Influenza Virus Vaccine Quad .5 mL IM 6+ MO (FLUZONE/FLULAVAL/F LUARIX) Unknown Completed [facility] Influenza Virus Vaccine Quad .5 mL IM 6+ MO (FLUZONE/FLULAVAL/F LUARIX) Unknown Completed [facility] TDAP (ADACEL) VACCINE Unknown Completed [facility] Influenza Virus Vaccine Recomb Quad IM, Preserv and ABX Free 18-[address] [facility] Influenza Virus Vaccine Unknown Completed [facility] Influenza Virus Vaccine Unknown Completed [facility] Influenza Virus Vaccine Quad .5 mL IM 6+ MO (FLUZONE/FLULAVAL/F LUARIX) Unknown Completed [facility] Influenza Virus Vaccine Quad .5 mL IM 6+ MO (FLUZONE/FLULAVAL/F LUARIX) Unknown Completed [facility] TDAP (ADACEL) VACCINE Unknown Completed [facility] Influenza Virus Vaccine Recomb Quad IM, Preserv and ABX Free 18-[address] [facility] Influenza Virus Vaccine Unknown Completed [facility] Influenza Virus Vaccine Unknown Completed [facility] Influenza Virus Vaccine Quad .5 mL IM 6+ MO (FLUZONE/FLULAVAL/F LUARIX) Unknown Completed [facility] Influenza Virus Vaccine Quad .5 mL IM 6+ MO (FLUZONE/FLULAVAL/F LUARIX) Unknown Completed [facility] TDAP (ADACEL) VACCINE Unknown Completed [facility] Influenza Virus Vaccine Recomb Quad IM, Preserv and ABX Free 18-64 [address] [facility] Influenza Virus Vaccine Unknown Completed [facility] Influenza Virus Vaccine Unknown Completed [facility] Influenza Virus Vaccine Quad .5 mL IM 6+ MO (FLUZONE/FLULAVAL/F LUARIX) Unknown Completed [facility] Influenza Virus Vaccine Quad .5 mL IM 6+ MO (FLUZONE/FLULAVAL/F LUARIX) Unknown Completed [facility] TDAP (ADACEL) VACCINE Unknown Completed [facility] Influenza Virus Vaccine Recomb Quad IM, Preserv and ABX Free 18-64 [address] [facility] Influenza Virus Vaccine Unknown Completed [facility] Influenza Virus Vaccine Unknown Completed [facility] Influenza Virus Vaccine Quad .5 mL IM 6+ MO (FLUZONE/FLULAVAL/F LUARIX) Unknown Completed [facility] Influenza Virus Vaccine Quad .5 mL IM 6+ MO (FLUZONE/FLULAVAL/F LUARIX) Unknown Completed [facility] TDAP (ADACEL) VACCINE Unknown Completed [facility] Influenza Virus Vaccine Recomb Quad IM, Preserv and ABX Free 18-64 [address] [facility] Influenza Virus Vaccine Unknown Completed [facility] Influenza Virus Vaccine Unknown Completed [facility] Influenza Virus Vaccine Quad .5 mL IM 6+ MO (FLUZONE/FLULAVAL/F LUARIX) Unknown Completed [facility] Influenza Virus Vaccine Quad .5 mL IM 6+ MO (FLUZONE/FLULAVAL/F LUARIX) Unknown Completed [facility] TDAP (ADACEL) VACCINE Unknown Completed [facility] Influenza Virus Vaccine Recomb Quad IM, Preserv and ABX Free 18-64 [address] [facility] Influenza Virus Vaccine Unknown Completed [facility] Influenza Virus Vaccine Unknown Completed [facility] Influenza Virus Vaccine Quad .5 mL IM 6+ MO (FLUZONE/FLULAVAL/F LUARIX) Unknown Completed [facility] Influenza Virus Vaccine Quad .5 mL IM 6+ MO (FLUZONE/FLULAVAL/F LUARIX) Unknown Completed [facility] TDAP (ADACEL) VACCINE Unknown Completed [facility] Influenza Virus Vaccine Recomb Quad IM, Preserv and ABX Free 18-[address] [facility] Influenza Virus Vaccine Unknown Completed [facility] Influenza Virus Vaccine Unknown Completed [facility] Influenza Virus Vaccine Quad .5 mL IM 6+ MO (FLUZONE/FLULAVAL/F LUARIX) Unknown Completed [facility] Influenza Virus Vaccine Quad .5 mL IM 6+ MO (FLUZONE/FLULAVAL/F LUARIX) Unknown Completed [facility] TDAP (ADACEL) VACCINE Unknown Completed [facility] Influenza Virus Vaccine Recomb Quad IM, Preserv and ABX Free 18-64 [address] [facility] Influenza Virus Vaccine Unknown Completed [facility] Influenza Virus Vaccine Quad .5 mL IM 6+ MO (FLUZONE/FLULAVAL/F LUARIX) Unknown Completed [facility] TDAP (ADACEL) VACCINE Unknown Completed [facility] Influenza Virus Vaccine Recomb Quad IM, Preserv and ABX Free 18-[address] [facility] Influenza Virus Vaccine Unknown Completed [facility] Influenza Virus Vaccine Quad .5 mL IM 6+ MO (FLUZONE/FLULAVAL/F LUARIX) Unknown Completed [facility] TDAP (ADACEL) VACCINE Unknown Completed [facility] Influenza Virus Vaccine Recomb Quad IM, Preserv and ABX Free 18-64 [address] [facility] Influenza Virus Vaccine Unknown Completed [facility] Influenza Virus Vaccine Quad .5 mL IM 6+ MO (FLUZONE/FLULAVAL/F LUARIX) Unknown Completed [facility] TDAP (ADACEL) VACCINE Unknown Completed [facility] Influenza Virus Vaccine Recomb Quad IM, Preserv and ABX Free 18-[address] [facility] Influenza Virus Vaccine Unknown Completed [facility] Influenza Virus Vaccine Quad .5 mL IM 6+ MO (FLUZONE/FLULAVAL/F LUARIX) Unknown Completed [facility] TDAP (ADACEL) VACCINE Unknown Completed [facility] Influenza Virus Vaccine Recomb Quad IM, Preserv and ABX Free 18-[address] [facility] Influenza Virus Vaccine Unknown Completed [facility] Influenza Virus Vaccine Quad .5 mL IM 6+ MO (FLUZONE/FLULAVAL/F LUARIX) Unknown Completed [facility] TDAP (ADACEL) VACCINE Unknown Completed [facility] Influenza Virus Vaccine Recomb Quad IM, Preserv and ABX Free 18-[address] [facility] Influenza Virus Vaccine Unknown Completed [facility] Influenza Virus Vaccine Quad .5 mL IM 6+ MO (FLUZONE/FLULAVAL/F LUARIX) Unknown Completed [facility] TDAP (ADACEL) VACCINE Unknown Completed [facility] Influenza Virus Vaccine Recomb Quad IM, Preserv and ABX Free 18-[address] [facility] Influenza Virus Vaccine Unknown Completed [facility] Influenza Virus Vaccine Quad .5 mL IM 6+ MO (FLUZONE/FLULAVAL/F LUARIX) Unknown Completed [facility] TDAP (ADACEL) VACCINE Unknown Completed [facility] Influenza Virus Vaccine Recomb Quad IM, Preserv and ABX Free 18-[address] [facility] Influenza Virus Vaccine Unknown Completed [facility] Influenza Virus Vaccine Quad .5 mL IM 6+ MO (FLUZONE/FLULAVAL/F LUARIX) Unknown Completed [facility] TDAP (ADACEL) VACCINE Unknown Completed [facility] Influenza Virus Vaccine Recomb Quad IM, Preserv and ABX Free 18-[address] [facility] Influenza Virus Vaccine Unknown Completed [facility] Influenza Virus Vaccine Quad .5 mL IM 6+ MO (FLUZONE/FLULAVAL/F LUARIX) Unknown Completed [facility] TDAP (ADACEL) VACCINE Unknown Completed [facility] Influenza Virus Vaccine Recomb Quad IM, Preserv and ABX Free 18-[address] [facility] Influenza Virus Vaccine Unknown Completed [facility] Influenza Virus Vaccine Quad .5 mL IM 6+ MO (FLUZONE/FLULAVAL/F LUARIX) Unknown Completed [facility] TDAP (ADACEL) VACCINE Unknown Completed [facility] Influenza Virus Vaccine Recomb Quad IM, Preserv and ABX Free 18-[address] [facility] Influenza Virus Vaccine Unknown Completed [facility] Influenza Virus Vaccine Quad .5 mL IM 6+ MO (FLUZONE/FLULAVAL/F LUARIX) Unknown Completed [facility] TDAP (ADACEL) VACCINE Unknown Completed [facility] Influenza Virus Vaccine Recomb Quad IM, Preserv and ABX Free 18-[address] [facility] Influenza Virus Vaccine Unknown Completed [facility] Influenza Virus Vaccine Quad .5 mL IM 6+ MO (FLUZONE/FLULAVAL/F LUARIX) Unknown Completed [facility] TDAP (ADACEL) VACCINE Unknown Completed [facility] Influenza Virus Vaccine Recomb Quad IM, Preserv and ABX Free 18-[address] [facility] Influenza Virus Vaccine Unknown Completed [facility] Influenza Virus Vaccine Quad .5 mL IM 6+ MO (FLUZONE/FLULAVAL/F LUARIX) Unknown Completed [facility] TDAP (ADACEL) VACCINE Unknown Completed [facility] Influenza Virus Vaccine Recomb Quad IM, Preserv and ABX Free 18-[address] [facility] Influenza Virus Vaccine Unknown Completed [facility] Influenza Virus Vaccine Quad .5 mL IM 6+ MO (FLUZONE/FLULAVAL/F LUARIX) Unknown Completed [facility] TDAP (ADACEL) VACCINE Unknown Completed [facility] Influenza Virus Vaccine Recomb Quad IM, Preserv and ABX Free 18-[address] [facility] Influenza Virus Vaccine Unknown Completed [facility] Influenza Virus Vaccine Quad .5 mL IM 6+ MO (FLUZONE/FLULAVAL/F LUARIX) Unknown Completed [facility] TDAP (ADACEL) VACCINE Unknown Completed [facility] Influenza Virus Vaccine Recomb Quad IM, Preserv and ABX Free 18-[address] [facility] Influenza Virus Vaccine Unknown Completed [facility] Influenza Virus Vaccine Quad .5 mL IM 6+ MO (FLUZONE/FLULAVAL/F LUARIX) Unknown Completed [facility] TDAP (ADACEL) VACCINE Unknown Completed [facility] Influenza Virus Vaccine Recomb Quad IM, Preserv and ABX Free 18-[address] [facility] Influenza Virus Vaccine Unknown Completed [facility] Influenza Virus Vaccine Quad .5 mL IM 6+ MO (FLUZONE/FLULAVAL/F LUARIX) Unknown Completed [facility] TDAP (ADACEL) VACCINE Unknown Completed [facility] Influenza Virus Vaccine Recomb Quad IM, Preserv and ABX Free 18-[address] [facility] Influenza Virus Vaccine Unknown Completed [facility] Influenza Virus Vaccine Quad .5 mL IM 6+ MO (FLUZONE/FLULAVAL/F LUARIX) Unknown Completed [facility] TDAP (ADACEL) VACCINE Unknown Completed [facility] Influenza Virus Vaccine Recomb Quad IM, Preserv and ABX Free 18-[address] [facility] Influenza Virus Vaccine Unknown Completed [facility] Influenza Virus Vaccine Quad .5 mL IM 6+ MO (FLUZONE/FLULAVAL/F LUARIX) Unknown Completed [facility] TDAP (ADACEL) VACCINE Unknown Completed [facility] Influenza Virus Vaccine Recomb Quad IM, Preserv and ABX Free 18-[address] [facility] Influenza Virus Vaccine Unknown Completed [facility] Influenza Virus Vaccine Quad .5 mL IM 6+ MO (FLUZONE/FLULAVAL/F LUARIX) Unknown Completed [facility] TDAP (ADACEL) VACCINE Unknown Completed [facility] Influenza Virus Vaccine Recomb Quad IM, Preserv and ABX Free 18-[address] [facility] Influenza Virus Vaccine Unknown Completed [facility] Influenza Virus Vaccine Quad .5 mL IM 6+ MO (FLUZONE/FLULAVAL/F LUARIX) Unknown Completed [facility] TDAP (ADACEL) VACCINE Unknown Completed [facility] Influenza Virus Vaccine Recomb Quad IM, Preserv and ABX Free 18-[address] [facility] Influenza Virus Vaccine Unknown Completed [facility] Influenza Virus Vaccine Quad .5 mL IM 6+ MO (FLUZONE/FLULAVAL/F LUARIX) Unknown Completed [facility] TDAP (ADACEL) VACCINE Unknown Completed [facility] Influenza Virus Vaccine Recomb Quad IM, Preserv and ABX Free 18-[address] [facility] Influenza Virus Vaccine Unknown Completed [facility] Influenza Virus Vaccine Quad .5 mL IM 6+ MO (FLUZONE/FLULAVAL/F LUARIX) Unknown Completed [facility] TDAP (ADACEL) VACCINE Unknown Completed [facility] Influenza Virus Vaccine Recomb Quad IM, Preserv and ABX Free 18-[address] [facility] Influenza Virus Vaccine Unknown Completed [facility] Influenza Virus Vaccine Quad .5 mL IM 6+ MO (FLUZONE/FLULAVAL/F LUARIX) Unknown Completed [facility] TDAP (ADACEL) VACCINE Unknown Completed [facility] Influenza Virus Vaccine Recomb Quad IM, Preserv and ABX Free 18-[address] [facility] Influenza Virus Vaccine Unknown Completed [facility] Influenza Virus Vaccine Quad .5 mL IM 6+ MO (FLUZONE/FLULAVAL/F LUARIX) Unknown Completed [facility] TDAP (ADACEL) VACCINE Unknown Completed [facility] Influenza Virus Vaccine Recomb Quad IM, Preserv and ABX Free 18-[address] [facility] Influenza Virus Vaccine Unknown Completed [facility] Influenza Virus Vaccine Quad .5 mL IM 6+ MO (FLUZONE/FLULAVAL/F LUARIX) Unknown Completed [facility] TDAP (ADACEL) VACCINE Unknown Completed [facility] Influenza Virus Vaccine Recomb Quad IM, Preserv and ABX Free 18-[address] Unknown [address] [facility] Influenza Virus Vaccine Unknown Completed [facility] Influenza Virus Vaccine Quad .5 mL IM 6+ MO (FLUZONE/FLULAVAL/F LUARIX) Unknown Completed [facility] TDAP (ADACEL) VACCINE Unknown Completed [facility] Influenza Virus Vaccine Recomb Quad IM, Preserv and ABX Free 18-[address] [facility] Influenza Virus Vaccine Unknown Completed [facility] Influenza Virus Vaccine Quad .5 mL IM 6+ MO (FLUZONE/FLULAVAL/F LUARIX) Unknown Completed [facility] TDAP (ADACEL) VACCINE Unknown Completed [facility] Influenza Virus Vaccine Recomb Quad IM, Preserv and ABX Free 18-[address] [facility] Influenza Virus Vaccine Unknown Completed [facility] Influenza Virus Vaccine Quad .5 mL IM 6+ MO (FLUZONE/FLULAVAL/F LUARIX) Unknown Completed [facility] TDAP (ADACEL) VACCINE Unknown Completed [facility] Influenza Virus Vaccine Recomb Quad IM, Preserv and ABX Free 18-64 Y[address] Unknown Com[address] [facility] Influenza Virus Vaccine Unknown Completed [facility] Influenza Virus Vaccine Quad .5 mL IM 6+ MO (FLUZONE/FLULAVAL/F LUARIX) Unknown Completed [facility] TDAP (ADACEL) VACCINE Unknown Completed [facility] Influenza Virus Vaccine Recomb Quad IM, Preserv and ABX Free 18-64 Y[address] Unknown Com[address] [facility] Influenza Virus Vaccine Unknown Completed [facility] Influenza Virus Vaccine Quad .5 mL IM 6+ MO (FLUZONE/FLULAVAL/F LUARIX) Unknown Completed [facility] TDAP (ADACEL) VACCINE Unknown Completed [facility] Influenza Virus Vaccine Recomb Quad IM, Preserv and ABX Free 18-64 Y[address] Unknown Com[address] [facility] Influenza Virus Vaccine Unknown Completed [facility] Influenza Virus Vaccine Quad .5 mL IM 6+ MO (FLUZONE/FLULAVAL/F LUARIX) Unknown Completed [facility] TDAP (ADACEL) VACCINE Unknown Completed [facility] Influenza Virus Vaccine Recomb Quad IM, Preserv and ABX Free 18-64 Y[address] Unknown Com[address] [facility] Influenza Virus Vaccine Unknown Completed [facility] Influenza Virus Vaccine Quad .5 mL IM 6+ MO (FLUZONE/FLULAVAL/F LUARIX) Unknown Completed [facility] TDAP (ADACEL) VACCINE Unknown Completed [facility] Influenza Virus Vaccine Recomb Quad IM, Preserv and ABX Free 18-64 Y[address] Unknown Com[address] [facility] Influenza Virus Vaccine Unknown Completed [facility] Influenza Virus Vaccine Quad .5 mL IM 6+ MO (FLUZONE/FLULAVAL/F LUARIX) Unknown Completed [facility] TDAP (ADACEL) VACCINE Unknown Completed [facility] Influenza Virus Vaccine Recomb Quad IM, Preserv and ABX Free 18-64 Y[address] [facility] Influenza Virus Vaccine Unknown Completed [facility] Influenza Virus Vaccine Quad .5 mL IM 6+ MO (FLUZONE/FLULAVAL/F LUARIX) Unknown Completed [facility] TDAP (ADACEL) VACCINE Unknown Completed [facility] Influenza Virus Vaccine Recomb Quad IM, Preserv and ABX Free 18-[address] [facility] Influenza Virus Vaccine Unknown Completed [facility] Influenza Virus Vaccine Quad .5 mL IM 6+ MO (FLUZONE/FLULAVAL/F LUARIX) Unknown Completed [facility] TDAP (ADACEL) VACCINE Unknown Completed [facility] Influenza Virus Vaccine Quad .5 mL IM 6+ MO (FLUZONE/FLULAVAL/F LUARIX) Unknown Completed [facility] TDAP (ADACEL) VACCINE Unknown Completed [facility] Influenza Virus Vaccine Quad .5 mL IM 6+ MO (FLUZONE/FLULAVAL/F LUARIX) Unknown Completed [facility] TDAP (ADACEL) VACCINE Unknown Completed [facility] Influenza Virus Vaccine Quad .5 mL IM 6+ MO (FLUZONE/FLULAVAL/F LUARIX) Unknown Completed [facility] TDAP (ADACEL) VACCINE Unknown Completed [facility] Influenza Virus Vaccine Quad .5 mL IM 6+ MO (FLUZONE/FLULAVAL/F LUARIX) Unknown Completed [facility] TDAP (ADACEL) VACCINE Unknown Completed [facility] Influenza Virus Vaccine Quad .5 mL IM 6+ MO (FLUZONE/FLULAVAL/F LUARIX) Unknown Completed [facility] TDAP (ADACEL) VACCINE Unknown Completed [facility] Influenza Virus Vaccine Quad .5 mL IM 6+ MO (FLUZONE/FLULAVAL/F LUARIX) Unknown Completed [facility] TDAP (ADACEL) VACCINE Unknown Completed [facility] Influenza Virus Vaccine Quad .5 mL IM 6+ MO (FLUZONE/FLULAVAL/F LUARIX) Unknown Completed [facility] TDAP (ADACEL) VACCINE Unknown Completed [facility] Influenza Virus Vaccine Quad .5 mL IM 6+ MO (FLUZONE/FLULAVAL/F LUARIX) Unknown Completed [facility] TDAP (ADACEL) VACCINE Unknown Completed [facility] Influenza Virus Vaccine Quad .5 mL IM 6+ MO (FLUZONE/FLULAVAL/F LUARIX) Unknown Completed [facility] TDAP (ADACEL) VACCINE Unknown Completed [facility] Influenza Virus Vaccine Recomb Quad IM, Preserv and ABX Free 18-64 YRS Unknown Com[address] [facility] Influenza Virus Vaccine Unknown Completed [facility] Influenza Virus Vaccine Unknown Completed [facility] Influenza Virus Vaccine Quad IM, Preserv and ABX Free 6 MO-64 YRS (FLUCELVAX) Unknown Completed [facility] Influenza Virus Vaccine Quad .5 mL IM 6+ MO (FLUZONE/FLULAVAL/F LUARIX) Unknown Completed [facility] Influenza Virus Vaccine Quad .5 mL IM 6+ MO (FLUZONE/FLULAVAL/F LUARIX) Unknown Completed [facility] Influenza Virus Vaccine Quad .5 mL IM 6+ MO (FLUZONE/FLULAVAL/F LUARIX) Unknown Completed [facility] TDAP (ADACEL) VACCINE Unknown Completed [facility] Influenza Virus Vaccine Recomb Quad IM, Preserv and ABX Free 18-64 YRS Unknown Com[address] [facility] Influenza Virus Vaccine Unknown Completed [facility] Influenza Virus Vaccine Unknown Completed [facility] Influenza Virus Vaccine Quad IM, Preserv and ABX Free 6 MO-64 YRS (FLUCELVAX) Unknown Completed [facility] Influenza Virus Vaccine Quad .5 mL IM 6+ MO (FLUZONE/FLULAVAL/F LUARIX) Unknown Completed [facility] Influenza Virus Vaccine Quad .5 mL IM 6+ MO (FLUZONE/FLULAVAL/F LUARIX) Unknown Completed [facility] Vital Signs Vital Name Observation Time Observation Value Comments S ource Systolic blood pressure 2023-05-19 17:24:00 129 mm[Hg] [facility] Diastolic blood pressure 2023-05-19 17:24:00 83 mm[Hg] [facility] Heart rate 2023-05-19 17:24:00 77 /min [facility] Respiratory rate 2023-05-19 17:24:00 15 /min [facility] Oxygen saturation in Arterial blood by Pulse oximetry 2023-05-19 17:24:00 100 /min [facility] Body temperature 2023-05-19 14:50:[address] [facility] Body height 2023-05-19 14:50:00 154.9 cm [facility] Body weight 2023-05-19 14:50:00 58.968 kg [facility] BMI 2023-05-19 14:50:00 24.56 kg/m2 [facility] Systolic blood pressure 2023-01-15 16:56:00 132 mm[Hg] [facility] Diastolic blood pressure 2023-01-15 16:56:00 91 mm[Hg] [facility] Heart rate 2023-01-15 16:56:00 67 /min Unive [facility] Body temperature 2023-01-15 16:56:[address] [facility] Respiratory rate 2023-01-15 16:56:00 20 /min [facility] Oxygen saturation in Arterial blood by Pulse oximetry 2023-01-15 16:56:00 100 /min [facility] Body height 2023-01-12 09:05:00 154.9 cm [facility] Body weight 2023-01-12 09:05:00 58.968 kg [facility] BMI 2023-01-12 09:05:00 24.56 kg/m2 [facility] Systolic blood pressure 2022-11-21 21:40:00 122 mm[Hg] [facility] Diastolic blood pressure 2022-11-21 21:40:00 90 mm[Hg] [facility] Heart rate 2022-11-21 21:40:00 92 /min [facility] Respiratory rate 2022-11-21 21:40:00 16 /min [facility] Oxygen saturation in Arterial blood by Pulse oximetry 2022-11-21 21:40:00 99 /min [facility] Body temperature 2022-11-21 18:07:[address] [facility] Body weight 2022-11-21 18:07:00 68.04 kg [facility] BMI 2022-11-21 18:07:00 28.34 kg/m2 [facility] Systolic blood pressure 2022-09-05 17:22:00 139 mm[Hg] [facility] Diastolic blood pressure 2022-09-05 17:22:00 91 mm[Hg] [facility] Heart rate 2022-09-05 17:22:00 120 /min Unive [facility] Respiratory rate 2022-09-05 17:22:00 18 /min [facility] Oxygen saturation in Arterial blood by Pulse oximetry 2022-09-05 17:22:00 99 /min [facility] Body temperature 2022-09-05 13:43:00 37.11 [facility] Body weight 2022-09-05 13:43:00 68.04 kg [facility] BMI 2022-09-05 13:43:00 28.34 kg/m2 [facility] Systolic blood pressure 2022-08-01 00:49:00 138 mm[Hg] [facility] Diastolic blood pressure 2022-08-01 00:49:00 104 mm[Hg] [facility] Heart rate 2022-08-01 00:49:00 108 /min Unive [facility] Respiratory rate 2022-08-01 00:49:00 18 /min [facility] Oxygen saturation in Arterial blood by Pulse oximetry 2022-08-01 00:49:00 99 /min [facility] Body temperature 2022-07-31 22:52:00 37.11 [facility] Body height 2022-07-31 22:52:00 154.9 cm [facility] Body weight 2022-07-31 22:52:00 68.04 kg [facility] BMI 2022-07-31 22:52:00 28.34 kg/m2 [facility] Systolic blood pressure 2022-07-15 15:32:00 130 mm[Hg] [facility] Diastolic blood pressure 2022-07-15 15:32:00 90 mm[Hg] [facility] Heart rate 2022-07-15 15:31:00 81 /min Unive [facility] Body temperature 2022-07-15 15:31:[address] [facility] Respiratory rate 2022-07-15 15:31:00 16 /min [facility] Body weight 2022-07-15 15:31:00 68.493 kg Univ [facility] BMI 2022-07-15 15:31:00 28.53 [facility] in Arterial blood by Pulse oximetry 2022-07-15 15:31:00 99 /min [facility] Systolic blood pressure 2022-06-23 15:26:00 111 mm[Hg] [facility] Diastolic blood pressure 2022-06-23 15:26:00 75 mm[Hg] [facility] Heart rate 2022-06-23 15:26:00 108 /min Unive [facility] Body temperature 2022-06-23 15:26:[address] [facility] Respiratory rate 2022-06-23 15:26:00 18 /min [facility] Body height 2022-06-23 15:26:00 154.9 cm Univ [facility] Body weight 2022-06-23 15:26:00 71.385 kg Univ [facility] BMI 2022-06-23 15:26:00 29.74 kg/m2 Univ [facility] Oxygen saturation in Arterial blood by Pulse oximetry 2022-06-23 15:26:00 99 /min [facility] Systolic blood pressure 2022-05-05 22:05:00 126 mm[Hg] [facility] Diastolic blood pressure 2022-05-05 22:05:00 75 mm[Hg] [facility] Heart rate 2022-05-05 22:05:00 99 /min Unive [facility] Respiratory rate 2022-05-05 22:05:00 16 /min [facility] Oxygen saturation in Arterial blood by Pulse oximetry 2022-05-05 22:05:00 99 /min [facility] Body temperature 2022-05-05 18:24:[address] [facility] Body height 2022-05-05 18:24:00 154.9 cm [facility] Body weight 2022-05-05 18:24:00 54.432 kg Univ [facility] BMI 2022-05-05 18:24:00 22.67 kg/m2 [facility] Systolic blood pressure 2022-04-26 14:28:00 135 mm[Hg] [facility] Diastolic blood pressure 2022-04-26 14:28:00 95 mm[Hg] [facility] Heart rate 2022-04-26 14:28:00 93 /min Unive [facility] Body temperature 2022-04-26 14:28:[address] [facility] Respiratory rate 2022-04-26 14:28:00 18 /min [facility] Body height 2022-04-26 14:28:00 154.9 cm [facility] Body weight 2022-04-26 14:28:00 54.432 kg Univ [facility] BMI 2022-04-26 14:28:00 22.67 kg/m2 Univ [facility] Oxygen saturation in Arterial blood by Pulse oximetry 2022-04-26 14:28:00 100 /min [facility] Systolic blood pressure 2022-04-26 00:21:00 151 mm[Hg] [facility] Diastolic blood pressure 2022-04-26 00:21:00 98 mm[Hg] [facility] Heart rate 2022-04-26 00:21:00 98 /min [facility] Body temperature 2022-04-26 00:21:[address] [facility] Respiratory rate 2022-04-26 00:21:00 18 /min [facility] Body height 2022-04-26 00:21:00 154.9 cm [facility] Body weight 2022-04-26 00:21:00 54.432 kg Univ [facility] BMI 2022-04-26 00:21:00 22.67 kg/m2 Univ [facility] Oxygen saturation in Arterial blood by Pulse oximetry 2022-04-26 00:21:00 100 /min [facility] Systolic blood pressure 2022-04-09 14:39:00 122 mm[Hg] [facility] Diastolic blood pressure 2022-04-09 14:39:00 84 mm[Hg] [facility] Heart rate 2022-04-09 14:39:00 96 /min Unive [facility] Body height 2022-04-09 14:39:00 154.9 cm [facility] Body weight 2022-04-09 14:39:00 60.328 kg [facility] BMI 2022-04-09 14:39:00 25.13 kg/m2 [facility] Oxygen saturation in Arterial blood by Pulse oximetry 2022-04-09 14:39:00 98 /min [facility] Systolic blood pressure 2022-04-07 22:43:36 131 mm[Hg] [facility] Diastolic blood pressure 2022-04-07 22:43:36 83 mm[Hg] [facility] Heart rate 2022-04-07 22:43:36 113 /min [facility] Respiratory rate 2022-04-07 22:43:36 18 /min [facility] Oxygen saturation in Arterial blood by Pulse oximetry 2022-04-07 22:43:36 97 /min [facility] Body temperature 2022-04-07 19:41:[address] [facility] Body height 2022-04-07 19:41:00 154.9 cm [facility] Body weight 2022-04-07 19:41:00 60.328 kg [facility] BMI 2022-04-07 19:41:00 25.13 kg/m2 [facility] Systolic blood pressure 2022-03-24 19:00:00 125 mm[Hg] [facility] Diastolic blood pressure 2022-03-24 19:00:00 86 mm[Hg] [facility] Heart rate 2022-03-24 19:00:00 93 /min [facility] Respiratory rate 2022-03-24 19:00:00 17 /min [facility] Oxygen saturation in Arterial blood by Pulse oximetry 2022-03-24 19:00:00 97 /min [facility] Body temperature 2022-03-24 13:33:00 36.78 [facility] Systolic blood pressure 2022-03-15 19:23:00 128 mm[Hg] [facility] Diastolic blood pressure 2022-03-15 19:23:00 89 mm[Hg] [facility] Heart rate 2022-03-15 19:23:00 104 /min Unive [facility] Body weight 2022-03-15 19:23:00 60.328 kg [facility] BMI 2022-03-15 19:23:00 25.13 kg/m2 [facility] Oxygen saturation in Arterial blood by Pulse oximetry 2022-03-15 19:23:00 98 /min [facility] Systolic blood pressure 2022-03-15 15:02:00 115 mm[Hg] [facility] Diastolic blood pressure 2022-03-15 15:02:00 70 mm[Hg] [facility] Heart rate 2022-03-15 15:02:00 85 /min Unive [facility] Respiratory rate 2022-03-15 15:02:00 20 /min [facility] Oxygen saturation in Arterial blood by Pulse oximetry 2022-03-15 15:02:00 99 /min [facility] Body temperature 2022-03-15 13:38:[address] [facility] Body height 2022-03-15 13:38:00 154.9 cm [facility] Body weight 2022-03-15 13:38:00 54.432 kg [facility] BMI 2022-03-15 13:38:00 22.67 kg/m2 [facility] Systolic blood pressure 2022-03-11 16:30:00 124 mm[Hg] [facility] Diastolic blood pressure 2022-03-11 16:30:00 88 mm[Hg] [facility] Heart rate 2022-03-11 16:30:00 93 /min Unive [facility] Body temperature 2022-03-11 16:30:[address] [facility] Respiratory rate 2022-03-11 16:30:00 14 /min [facility] Oxygen saturation in Arterial blood by Pulse oximetry 2022-03-11 16:30:00 100 /min [facility] Body height 2022-03-11 14:19:00 154.9 cm Univ [facility] Body weight 2022-03-11 14:19:00 58.968 kg Univ [facility] BMI 2022-03-11 14:19:00 24.56 kg/m2 Univ [facility] Systolic blood pressure 2022-02-27 14:14:00 140 mm[Hg] [facility] Diastolic blood pressure 2022-02-27 14:14:00 90 mm[Hg] [facility] Heart rate 2022-02-27 14:14:00 103 /min Unive [facility] Body height 2022-02-27 14:14:00 154.9 cm [facility] Body weight 2022-02-27 14:14:00 59.194 kg [facility] BMI 2022-02-27 14:14:00 24.66 kg/m2 [facility] Oxygen saturation in Arterial blood by Pulse oximetry 2022-02-27 14:14:00 100 /min [facility] Systolic blood pressure 2022-02-27 13:19:00 131 mm[Hg] [facility] Diastolic blood pressure 2022-02-27 13:19:00 86 mm[Hg] [facility] Heart rate 2022-02-27 13:19:00 102 /min Un[facility] Body temperature 2022-02-27 13:19:[address] [facility] Body height 2022-02-27 13:19:00 154.9 cm Univ [facility] Body weight 2022-02-27 13:19:00 58.968 kg [facility] BMI 2022-02-27 13:19:00 24.56 kg/m2 [facility] Oxygen saturation in Arterial blood by Pulse oximetry 2022-02-27 13:19:00 99 /min [facility] Systolic blood pressure 2022-02-21 08:06:00 135 mm[Hg] [facility] Diastolic blood pressure 2022-02-21 08:06:00 97 mm[Hg] [facility] Heart rate 2022-02-21 08:06:00 98 /min Un[facility] Respiratory rate 2022-02-21 08:06:00 16 /min [facility] Oxygen saturation in Arterial blood by Pulse oximetry 2022-02-21 08:06:00 97 /min [facility] Body temperature 2022-02-21 06:16:[address] [facility] Body height 2022-02-21 06:16:00 154.9 cm [facility] Body weight 2022-02-21 06:16:00 60.963 kg [facility] BMI 2022-02-21 06:16:00 25.39 kg/m2 [facility] Systolic blood pressure 2022 20:08:00 136 mm[Hg] [facility] Diastolic blood pressure 2022 20:08:00 96 mm[Hg] [facility] Heart rate 2022 20:08:00 100 /min Un[facility] Respiratory rate 2022 20:08:00 20 /min [facility] Oxygen saturation in Arterial blood by Pulse oximetry 2022 20:08:00 98 /min [facility] Body temperature 2022 16:56:[address] [facility] Body weight 2022 16:56:00 54.432 kg [facility] BMI 2022 16:56:00 22.67 kg/m2 [facility] Systolic blood pressure 2022-02-05 14:31:00 128 mm[Hg] [facility] Diastolic blood pressure 2022-02-05 14:31:00 84 mm[Hg] [facility] Heart rate 2022-02-05 14:31:00 86 /min Unive [facility] Body temperature 2022-02-05 14:31:[address] [facility] Respiratory rate 2022-02-05 14:31:00 18 /min [facility] Body height 2022-02-05 14:31:00 154.9 cm [facility] Body weight 2022-02-05 14:31:00 54.432 kg [facility] BMI 2022-02-05 14:31:00 22.67 kg/m2 [facility] Oxygen saturation in Arterial blood by Pulse oximetry 2022-02-05 14:31:00 98 /min [facility] Systolic blood pressure 2022-01-18 14:50:00 144 mm[Hg] [facility] Diastolic blood pressure 2022-01-18 14:50:00 92 mm[Hg] [facility] Heart rate 2022-01-18 14:50:00 94 /min [facility] Respiratory rate 2022-01-18 14:50:00 20 /min [facility] Oxygen saturation in Arterial blood by Pulse oximetry 2022-01-18 14:50:00 99 /min [facility] Body weight 2022-01-18 10:18:00 54.432 kg [facility] BMI 2022-01-18 10:18:00 22.67 kg/m2 [facility] Body temperature 2022-01-18 10:15:[address] [facility] Systolic blood pressure 2022-01-15 15:48:26 125 mm[Hg] [facility] Diastolic blood pressure 2022-01-15 15:48:26 85 mm[Hg] [facility] Heart rate 2022-01-15 15:48:26 95 /min [facility] Respiratory rate 2022-01-15 15:48:26 18 /min [facility] Oxygen saturation in Arterial blood by Pulse oximetry 2022-01-15 15:48:26 98 /min [facility] Body temperature 2022-01-15 13:32:[address] [facility] Body height 2022-01-15 13:32:00 154.9 cm [facility] Body weight 2022-01-15 13:32:00 54.432 kg [facility] BMI 2022-01-15 13:32:00 22.67 kg/m2 Univ [facility] Systolic blood pressure 2022-01-09 00:37:11 127 mm[Hg] [facility] Diastolic blood pressure 2022-01-09 00:37:11 90 mm[Hg] [facility] Heart rate 2022-01-09 00:37:11 94 /min Un[facility] Body temperature 2022-01-09 00:37:[address] [facility] Respiratory rate 2022-01-09 00:37:11 16 /min [facility] Oxygen saturation in Arterial blood by Pulse oximetry 2022-01-09 00:37:11 97 /min [facility] Body height 2022-01-08 23:03:00 154.9 cm [facility] Body weight 2022-01-08 23:03:00 58.06 kg [facility] BMI 2022-01-08 23:03:00 24.19 kg/m2 [facility] Systolic blood pressure 2021-12-12 18:00:00 126 mm[Hg] [facility] Diastolic blood pressure 2021-12-12 18:00:00 87 mm[Hg] [facility] Heart rate 2021-12-12 18:00:00 86 /min Un[facility] Body temperature 2021-12-12 18:00:[address] [facility] Respiratory rate 2021-12-12 18:00:00 18 /min [facility] Body height 2021-12-12 18:00:00 154.9 cm [facility] Body weight 2021-12-12 18:00:00 57.153 kg [facility] BMI 2021-12-12 18:00:00 23.81 kg/m2 [facility] Systolic blood pressure 2023-01-14 16:32:00 138 mm[Hg] [facility] Diastolic blood pressure 2023-01-14 16:32:00 84 mm[Hg] [facility] Heart rate 2023-01-14 16:32:00 67 /min Un[facility] Body temperature 2023-01-14 16:32:[address] [facility] Respiratory rate 2023-01-14 16:32:00 16 /min [facility] Oxygen saturation in Arterial blood by Pulse oximetry 2023-01-14 16:32:00 99 /min [facility] Body height 2023-01-12 09:05:00 154.9 cm [facility] Body weight 2023-01-12 09:05:00 58.968 kg [facility] BMI 2023-01-12 09:05:00 24.56 kg/m2 [facility] Procedures Procedure Date / Time Performed Performing Clinician Source COMP. METABOLIC PANEL (73434) 2023-05-19 17:22:[address] [facility] CT ABDOMEN PELVIS W CONTRAST 2023-05-19 15:59:[address] [facility] LIPASE 2023-05-19 15:43:00 [address] S[address] Un [facility] CBC WITH DIFF 2023-05-19 15:43:00 Tod Sellers U [facility] URINALYSIS 2023-05-19 15:32:00 Tod Sellers [facility] POCT TEST 2023-05-19 15:31:[address] [facility] CONSENT/REFUSAL FOR DIAGNOSIS AND TREATMENT 2023-05-19 14:37:15 Doctor Unassigned, [place] [facility] PHOSPHORUS 2023-01-15 08:15:00 Benita Rockwell Un [facility] MAGNESIUM 2023-01-15 08:15:00 Benita Rockwell [facility] BASIC METABOLIC PANEL (NA, K, CL, CO2, GLUCOSE, BUN, CREATININE, CA) 2023-01-15 08:15:[address] [facility] CBC WITH DIFF 2023-01-15 08:15:00 Benita Rockwell U [facility] PROTHROMBIN TIME / INR 2023-01-15 08:15:[address] [facility] MAGNESIUM 2023-01-14 10:14:00 [facility] 2023-01-14 10:14:00 Benita Rockwell [facility] BASIC METABOLIC PANEL (NA, K, CL, CO2, GLUCOSE, BUN, CREATININE, CA) 2023-01-14 10:14:[address] [facility] CBC WITH DIFF 2023-01-14 10:14:00 Benita Rockwell U [facility] PHOSPHORUS 2023-01-14 10:14:00 Benita Rockwell Un [facility] MAGNESIUM 2023-01-14 10:14:00 Benita Rockwell [facility] BASIC METABOLIC PANEL (NA, K, CL, CO2, GLUCOSE, BUN, CREATININE, CA) 2023-01-14 10:14:[address] [facility] CBC WITH DIFF 2023-01-14 10:14:00 Benita Rockwell U [facility] CBC WITH DIFF 2023-01-13 10:45:00 Vaishnavi, [facility] BASIC METABOLIC PANEL (NA, K, CL, CO2, GLUCOSE, BUN, CREATININE, CA) 2023-01-13 10:45:00 Vaishnavi [facility] MAGNESIUM 2023-01-13 10:45:00 Vaishnavi, [facility] PHOSPHORUS 2023-01-13 10:45:00 Vaishnavi, [facility] HEPATIC FUNCTION PANEL ([id number]) (ALB,T.PRO,BILI T,BU/BC,ALT,AST,ALK PHOS) 2023-01-13 10:45:00 Vaishnavi, [facility] PHOSPHORUS 2023-01-13 10:45:00 Vaishnavi, [facility] MAGNESIUM 2023-01-13 10:45:00 Vaishnavi [facility] HEPATIC FUNCTION PANEL ([id number]) (ALB,T.PRO,BILI T,BU/BC,ALT,AST,ALK PHOS) 2023-01-13 10:45:00 Vaishnavi, [facility] BASIC METABOLIC PANEL (NA, K, CL, CO2, GLUCOSE, BUN, CREATININE, CA) 2023-01-13 10:45:00 Vaishnavi, [facility] CBC WITH DIFF 2023-01-13 10:45:[address] [facility] GLUCOSE BODY FLUID 2023-01-12 20:44:[address] [facility] BODY FLUID MANUAL DIFF 2023-01-12 20:44:[address] [facility] T.PROTEIN BODY FLUID 2023-01-12 20:44:00 Vaishnavi [facility] ASPIRATE OR ABSCESS CULTURE(AEROBIC/ANAEROBIC ) 2023-01-12 20:44:00 Vaishnavi [facility] LDH TOTAL BODY FLUID 2023-01-12 20:44:00 Vaishnavi [facility] GLUCOSE BODY FLUID 2023-01-12 20:44:00 VaishnaviRodolfo [facility] T.PROTEIN BODY FLUID 2023-01-12 20:44:00 Vaishnavi [facility] BODY FLUID DIRECT COUNT 2023-01-12 20:44:[address] [facility] ASPIRATE OR ABSCESS CULTURE(AEROBIC/ANAEROBIC ) 2023-01-12 20:44:00 Vaishnavi [facility] LDH TOTAL BODY FLUID 2023-01-12 20:44:00 Vaishnavi [facility] PROTHROMBIN TIME / INR 2023-01-12 08:13:[address] [facility] PROTHROMBIN TIME / INR 2023-01-12 08:13:[address] [facility] COMP. METABOLIC PANEL ([id number]) 2023-01-12 03:49:[address] [facility] COMP. METABOLIC PANEL ([id number]) 2023-01-12 03:49:00 Ricky, Ciera [facility] CT ABDOMEN PELVIS W CONTRAST 2023-01-12 03:32:06 Ricky [facility] CT ABDOMEN PELVIS W CONTRAST 2023-01-12 03:32:06 Ciera García [facility] POCT TEST 2023-01-12 03:02:00 Jessica García [facility] POCT TEST 2023-01-12 03:02:00 Jessica García [facility] URINALYSIS 2023-01-12 02:56:00 [facility] 2023-01-12 02:56:00 Kenneth García [facility] TOTAL BETA HCG ASSAY 2023-01-12 02:56:00 Ciera García [facility] CBC WITH DIFF 2023-01-12 02:56:00 Kenneth García [facility] EXTRA TUBE ORANGE 2023-01-12 02:56:00 Aroldo Siddiqui [facility] EXTRA TUBE LAV 2023-01-12 02:56:00 Aroldo Siddiqui [facility] LIPASE 2023-01-12 02:56:00 [facility] T[facility] BETA HCG ASSAY 2023-01-12 02:56:00 [facility]FF 2023-01-12 02:56:00 [facility] 2023-01-12 02:56:00 Kenneth García [facility] EXTRA TUBE LAV 2023-01-12 02:56:00 Aroldo Siddiqui [facility] EXTRA TUBE ORANGE 2023-01-12 02:56:00 Aroldo Siddiqui [facility] CONSENT/REFUSAL FOR DIAGNOSIS AND TREATMENT 2023-01-12 01:46:10 Doctor Unassigned, [place] [facility] CONSENT/REFUSAL FOR DIAGNOSIS AND TREATMENT 2023-01-12 01:46:10 Doctor Unassigned, [place] [facility] [facility] ASSIGNMENT OF BENEFITS 2022-11-21 19:49:02 Docto r Unassigned, [place] [facility] ASSIGNMENT OF BENEFITS 2022-11-21 19:49:02 Docto r Unassigned, [place] [facility] CONSENT/REFUSAL FOR DIAGNOSIS AND TREATMENT 2022-11-21 18:03:25 Doctor Unassigned, [place] [facility] CONSENT/REFUSAL FOR DIAGNOSIS AND TREATMENT 2022-11-21 18:03:25 Doctor Unassigned, [place] [facility] EMERGENCY SERVICES AGREEMENTS AND AUTHORIZATIONS 2022-11-21 05:01:00 Doctor Unassigned, [place] [facility] CONSENT/REFUSAL FOR DIAGNOSIS AND TREATMENT 2022-09-05 13:42:02 Doctor Unassigned, [place] [facility] LIPASE 2022-07-31 23:13:00 [facility] 2022-07-31 23:13:[address] [facility] COMP. METABOLIC PANEL ([id number]) 2022-07-31 23:13:[address] [facility] CBC WITH DIFF 2022-07-31 23:13:00 Osiris [facility] CONSENT/REFUSAL FOR DIAGNOSIS AND TREATMENT 2022-07-31 22:49:17 Doctor Unassigned, [place] [facility] XR ANKLE 3+ VW RIGHT 2022-07-15 16:00:[address] [facility] XR FOOT 3+ VW RIGHT 2022-07-15 16:00:[address] [facility] XR FOOT 3+ VW RIGHT 2022-07-15 16:00:00 Jenifer Kaur [facility] PATIENT FINANCIAL POLICY 2022-07-15 15:25:53 Doctor Unassigned, [place] [facility] POCT MOLECULAR STREP 2022-06-23 16:06:00 Unknown, Attignacio alexander [facility] ASSIGNMENT OF BENEFITS 2022-06-23 15:18:28 Docto r Unassigned, [place] [facility] COMP. METABOLIC PANEL ([id number]) 2022-05-05 19:14:00 [facility] 2022-05-05 19:14:00 Karon Norton [facility] POCT TEST 2022-05-05 19:00:[address] [facility] URINALYSIS 2022-05-05 18:58:00 Karon Norton [facility] CT ABDOMEN PELVIS WO CONTRAST 2022-04-26 15:11:[address] [facility] COMP. METABOLIC PANEL ([id number]) 2022-04-26 14:49:[address] [facility] CBC WITH DIFF 2022-04-26 14:49:00 Zion Bridges [facility] URINALYSIS 2022-04-26 14:49:00 [facility] POCT TEST 2022-04-26 14:45:[address] [facility] CONSENT/REFUSAL FOR DIAGNOSIS AND TREATMENT 2022-04-26 14:22:29 Doctor Unassigned, [place] [facility] POCT TEST 2022-04-26 01:22:[address] [facility] ASSIGNMENT OF BENEFITS 2022-04-26 00:54:02 Docto r Unassigned, [place] [facility] URINALYSIS 2022-04-26 00:45:00 Zion Bridges [facility] CONSENT/REFUSAL FOR DIAGNOSIS AND TREATMENT 2022-04-26 00:16:47 Doctor Unassigned, [place] [facility] BASIC METABOLIC PANEL (NA, K, CL, CO2, GLUCOSE, BUN, CREATININE, CA) 2022-04-07 22:35:[address] [facility] CBC WITH DIFF 2022-04-07 22:35:00 Olamide Garvin [facility] URINALYSIS 2022-04-07 21:36:00 Olamide Garvin [facility] URINE DRUG (IMMUNOASSAY) - COMPREHENSIVE DRUG SCREEN W/O REFLEX 2022-04-07 21:36:[address] [facility] CONSENT/REFUSAL FOR DIAGNOSIS AND TREATMENT 2022-04-07 19:29:15 Doctor Unassigned, [place] [facility] POCT TEST 2022-03-24 14:07:[address] [facility] CONSENT/REFUSAL FOR DIAGNOSIS AND TREATMENT 2022-03-24 13:27:20 Doctor Unassigned, [place] [facility] CT ABDOMEN PELVIS WO CONTRAST 2022-03-15 14:09:[address] [facility] URINALYSIS 2022-03-15 13:53:00 [facility] 2022-03-15 13:52:[address] [facility] CONSENT/REFUSAL FOR DIAGNOSIS AND TREATMENT 2022-03-15 13:37:02 Doctor Unassigned, [place] [facility] POCT TEST 2022-03-11 14:59:[address] [facility] FLU VACC ([id number]), 6 MO-64 YRS, .5ML, IM, QUAD (FLUCELVAX) 2022-02-27 13:34:[address] [facility] NOTICE OF PRIVACY PRACTICES 2022-02-21 06:06:30 Doctor Unassigned, [place] [facility] CONSENT/REFUSAL FOR DIAGNOSIS AND TREATMENT 2022-02-21 06:03:41 Doctor Unassigned, [place] [facility] XR ANKLE <3 VW RIGHT 2022 17:56:[address] [facility] CT ABDOMEN PELVIS W CONTRAST 2022 17:44:[address] [facility] CT TRAUMA CERVICAL SPINE WO CONTRAST 2022 17:43:[address] [facility] POCT TEST 2022 17:27:[address] [facility] COMP. METABOLIC PANEL ([id number]) 2022 17:17:[address] [facility] CBC WITH DIFF 2022 17:17:00 Maggie Hamilton [facility] CONSENT/REFUSAL FOR DIAGNOSIS AND TREATMENT 2022 16:53:13 Doctor Unassigned, [place] [facility] US GALL BLADDER 2022-01-18 12:31:09 Bernardo Levy [facility] US PELVIS COMPLETE WITH TRANSVAGINAL 2022-01-18 12:21:[address] [facility] CT ABDOMEN PELVIS W CONTRAST 2022-01-18 11:20:[address] [facility] POCT TEST 2022-01-18 10:57:[address] [facility] COVID-19 (ID NOW RAPID TESTING) 2022-01-18 10:57:[address] [facility] URINALYSIS 2022-01-18 10:47:00 Jayy Kennedy [facility] LIPASE 2022-01-18 10:29:00 Jayy Kennedy [facility] TEST, SERUM 2022-01-18 10:29:[address] [facility] HEPATIC FUNCTION PANEL ([id number]) (ALB,T.PRO,BILI T,BU/BC,ALT,AST,ALK PHOS) 2022-01-18 10:29:[address] [facility] BASIC METABOLIC PANEL (NA, K, CL, CO2, GLUCOSE, BUN, CREATININE, CA) 2022-01-18 10:29:[address] [facility] CBC WITH DIFF 2022-01-18 10:29:00 Jayy Kennedy [facility] CONSENT/REFUSAL FOR DIAGNOSIS AND TREATMENT 2022-01-18 10:13:31 Doctor Unassigned, [place] [facility] CT HEAD WO CONTRAST 2022-01-15 15:22:[address] [facility] TEST, SERUM 2022-01-15 14:36:[address] [facility] BASIC METABOLIC PANEL (NA, K, CL, CO2, GLUCOSE, BUN, CREATININE, CA) 2022-01-15 14:36:[address] [facility] CBC WITH DIFF 2022-01-15 14:36:00 Maur[facility] CONSENT/REFUSAL FOR DIAGNOSIS AND TREATMENT 2022-01-15 13:28:12 Doctor Unassigned, [place] [facility] XR CERVICAL SPINE 4 VW 2022-01-09 00:29[facility]16 [facility] 4 [facility]W 2022-01-09 00:29:16 Gabriela, And paul [facility] XR SPINE THORACIC 3 VW 2022-01-09 00:29:16 [facility] 2022-01-08 23:50:00 Humberto Ochoa [facility] CONSENT/REFUSAL FOR DIAGNOSIS AND TREATMENT 2022-01-08 22:51:08 Doctor Unassigned, [place] [facility] GALV ONLY - VAGINAL PATHOGENS BY NUCLEIC ACID TESTING 2021-12-12 18:37:[address] [facility] URINE CULTURE 2021-12-12 18:32:00 Prasanna Vargas [facility] POCT TEST 2021-12-12 18:31:[address] [facility] POCT URINALYSIS W/O SPECIFIC GRAVITY 2021-12-12 18:31:00 Prasanna Vargas [facility] Encounters Start Date/Time End Date/Time Encounter Type Admission Type Attending [facility] Facility Care Department Encounter ID Source 2021-03-14 03:14:31 Emergency [facility] [id number] [facility] 2021-03-13 20:05:20 Emergency [facility] [id number] [facility] 2021-03-13 12:48:28 Emergency [facility] [id number] [facility] 2021-03-13 02:43:51 Emergency [facility] [id number] [facility] 2021-03-13 00:27:09 Emergency [facility] [id number] [facility] 2021-03-12 22:10:36 Emergency [facility] [id number] [facility] 2021-03-12 20:04:05 Emergency [facility] [id number] [facility] 2021-03-12 15:25:05 [place] [facility] [id number] 2021-03-12 11:43:36 Emergency [facility] [id number] [facility] 2021-03-12 07:41:37 Emergency [facility] [id number] [facility] 2021-03-12 05:43:47 Emergency [facility] [id number] [facility] 2021-03-12 03:43:41 Emergency [facility] [id number] [facility] 2021-03-12 01:31:27 Emergency [facility] [id number] [facility] 2021-03-12 00:56:44 Emergency [facility] [id number] [facility] 2021-03-12 00:56:31 Emergency [facility] [id number] [facility] 2021-03-11 17:47:02 Emergency [facility] [id number] [facility] 2021-03-11 16:27:15 Emergency [facility] [id number] [facility] 2021-03-11 12:00:58 Emergency [facility] [id number] [facility] 2021-03-11 10:33:59 [place] [facility] [place] [id number] [facility] 2021-03-11 01:36:52 Emergency [facility] [id number] [facility] 2021-03-10 23:35:34 Emergency [facility] [id number] [facility] 2021-03-10 19:06:16 Emergency [facility] [id number] [facility] 2021-03-10 12:39:47 Emergency [facility] [id number] [facility] 2021-03-10 06:54:04 Emergency [facility] [id number] [facility] 2021-03-09 13:25:44 Outpatient P [facility] [id number] [facility] 2021-03-09 13:08:01 Outpatient [facility] [id number] [facility] 2021-03-09 12:37:25 Outpatient P [facility] CH[facility]IS [id number] [facility] 2021-03-09 11:51:20 Outpatient P [facility] [id number] [facility] 2023-05-19 09:04:00 2023-05-19 12:20:00 Emergency X TOD SELLERS [facility] ERT [id number] [facility] 2023-05-19 09:04:00 2023-05-19 12:20:00 Emergency AdeAnna Marie dohertyzohra [facility] 1..840.114 350.1.13.10 4.2.7.2.686 [id number] [facility] 2023-04-05 00:00:00 2023-04-05 00:00:00 Patient Secure Msg Prasanna Vargas [facility] 1..840.114 350.1.13.10 4.2.7.2.686 [id number] [facility] 2023-02-14 12:59:23 2023-02-14 12:59:23 Outpatient [facility] [id number] Willis F Jeffery 2023-02-06 18:19:02 2023-02-06 18:19:02 Outpatient [facility] [id number] Willis Miguel Jeffery 2023-01-30 00:00:00 2023-01-30 00:00:00 Outpatient BILL_Farzana [facility] [id number] Odilia [facility] 2023-01-16 00:00:00 2023-01-16 00:00:00 Transition of Care Marlys Odell 1..840.114 350.1.13.10 4.2.7.2.686 [id number] [facility] 2023-01-11 21:06:00 2023-01-15 16:00:00 Inpatient X JOSE, OLIVER [facility] DAVID [id number] [facility] 2023-01-11 21:06:00 2023-01-15 16:00:00 Hospital Encounter Aroldo Siddiqui, Mirella Steele, [facility] 1.2.840.114 350.1.13.10 4.2.7.2.686 [id number] [facility] 2023-01-12 00:00:00 2023-01-12 00:00:00 Travel 1.2.840.1 [id number] 3.104.2.7 .3.809620 .8 1.2.840.114 350.1.13.10 4.2.7.3.698 [id number] [facility] 2023-01-11 00:00:00 2023-01-11 00:00:00 Travel 1.2.840.1 [id number] 3.104.2.7 .3.584293 .8 1.2.840.114 350.1.13.10 4.2.7.3.698 [id number] [facility] 2022-12-28 00:00:00 2022-12-28 00:00:00 Outpatient ERICKSON_R [facility] [id number] 2022-12-14 18:37:13 2022-12-14 18:37:13 Outpatient [facility] [id number] Willis Gil 2022-12-13 00:00:00 2022-12-13 00:00:00 Outpatient ERICKSON_R [facility] [id number] 2022-12-12 09:30:00 2022-12-12 09:30:00 Outpatient PRASANNA LOOMIS [facility] [id number] [facility] 2022-11-21 13:08:00 2022-11-21 16:45:00 Emergency X MANUJ NEWELL [facility] ERT [id number] [facility] 2022-11-21 13:08:00 2022-11-21 16:45:00 Emergency Zion Bridges Christopher 1.2.840.1 [id number] 3.104.2.7 .3.552727 .8 [id number] [facility] 2022-11-21 00:00:00 2022-11-21 00:00:00 Travel 1.2.840.1 [id number] 3.104.2.7 .3.517006 .8 1.2.840.114 350.1.13.10 4.2.7.3.698 084.8 [id number] [facility] 2022-11-18 10:08:00 2022-11-18 10:08:00 Outpatient [facility] [id number] Williszaira Gil 2022-11-15 09:40:00 2022-11-15 09:40:00 Outpatient LIAN LABOY CHRISTINE [facility] [id number] [facility] 2022-11-15 00:00:00 2022-11-15 00:00:00 Orders Only Palak Marrufo 1.2.840.1 [id number] 3.104.2.7 .3.256372 .8 [id number] [facility] 2022-11-09 15:26:18 2022-11-09 15:26:18 Outpatient [facility] [id number] Williszaira Gil 2022-11-06 13:00:00 2022-11-06 13:00:00 Outpatient VIJAY ARAUZ [facility] [id number] [facility] 2022-10-29 00:00:00 2022-10-29 00:00:00 Patient Secure Lian Mason 1.2.840.1 92463.1.1 3.104.2.7 .3.983003 .8 [id number] [facility] 2022-10-29 00:00:00 2022-10-29 00:00:00 Patient Secure Prasanna Kang 1.2.840.1 71647.1.1 3.104.2.7 .3.814370 .8 [id number] [facility] 2022-10-03 00:00:00 2022-10-03 00:00:00 Letter (Out) Gurjit Lim [facility] 1.2.840.114 350.1.13.10 4.2.7.2.686 [id number] [facility] 2022-10-02 10:00:00 2022-10-02 10:00:00 Outpatient CELINA SALMON [facility] [id number] [facility] 2022-10-01 09:40:00 2022-10-01 09:40:00 Outpatient R REJI DÍAZ [facility] [id number] [facility] 2022-09-25 00:00:00 2022-09-25 00:00:00 Telephone Rad Serra [facility] 1.2.840.114 350.1.13.10 4.2.7.2.686 [id number] [facility] 2022-09-21 09:30:00 2022-09-21 09:30:00 Outpatient KASSANDRA MCKINLEY [facility] [id number] [facility] 2022-09-21 00:00:00 2022-09-21 00:00:00 Telephone Kassandra Pugh [facility] TO[facility]O?[facility] 1.2.840.114 350.1.13.10 4.2.7.2.686 [id number] [facility] 2022-09-21 00:00:00 2022-09-21 00:00:00 Letter (Out) [facility] 1.84.114 350.1.13.10 4.2.7.2.686 [id number] [facility] 2022-09-21 00:00:00 2022-09-21 00:00:00 Tele[facility] 1.2840.114 350.1.13.10 4.2.7.2.686 [id number] [facility] 2022-09-14 09:30:00 2022-09-14 09:30:00 [facility] [id number] [facility] 2022-09-12 00:00:00 2022-09-12 00:00:00 Telephone Cristian [facility]?[employer] [facility] 1.84.114 350.1.13.10 4.2.7.2.686 [id number] [facility] 2022-09-07 11:30:00 2022-09-07 11:30:00 Outpatient R KASSANDRA PUGH [facility] [id number] [facility] 2022-09-05 08:44:00 2022-09-05 13:15:00 Emergency X KENNEDY WHITLEY [facility] ERT [id number] [facility] 2022-09-05 08:44:00 2022-09-05 13:15:00 Emergency Kennedy Whitley [facility] 1.84.114 350.1.13.10 4.2.7.2.686 [id number] [facility] 2022-09-04 00:00:00 2022-09-04 00:00:00 Telephone Cristian [facility] TO[facility]O?[facility] 1.284.114 350.1.13.10 4.2.7.2.686 [id number] [facility] 2022-09-04 00:00:00 2022-09-04 00:00:00 Patient Secure Msg Serra, Rad Cuello [facility] 1..840.114 350.1.13.10 4.2.7.2.686 [id number] [facility] 2022-08-29 09:00:00 2022-08-29 09:00:00 Outpatient R CELINA FINNEY [facility] [id number] [facility] 2022-08-14 00:00:00 2022-08-14 00:00:00 Patient Secure Msg Doctor Unassigned, [place] [facility] 1.840.114 350..13.10 4.2.7.2.686 [id number] [facility] 2022-07-31 17:56:00 2022-07-31 20:30:00 Emergency X OSIRIS [facility] ERT [id number] [facility] 2022-07-31 17:56:00 2022-07-31 20:30:00 Emergency [place] 1.840.114 350..13.10 4.2.7.2.686 [id number] [facility] 2022-07-15 09:46:45 2022-07-15 23:59:00 Outpatient R CARI KAUR [facility] [id number] [facility] 2022-07-15 09:46:45 2022-07-15 23:59:00 Hospital Encounter Cari Kaur [facility] 1.840.114 350.1.13.10 4.2.7.2.686 [id number] [facility] 2022-07-15 09:46:45 2022-07-15 23:59:00 Hospital Encounter Cari Kaur [facility] 1..840.114 350.1.13.10 4.2.7.2.686 [id number] [facility] 2022-07-15 09:20:00 2022-07-15 10:29:17 Urgent Care Cari Kaur Unknown, Attending [facility] 1.840.114 350.1.13.10 4.2.7.2.686 [id number] [facility] 2022-07-15 00:00:00 2022-07-15 00:00:00 Orders Only Doctor Unassigned, [place] [facility] 1.840.114 350.1.13.10 4.2.7.2.686 [id number] [facility] 2022-06-23 09:20:00 2022-06-23 10:27:39 Outpatient R PAUL SAMAYOA [facility] [id number] [facility] 2022-06-23 09:20:00 2022-06-23 10:27:39 Urgent Care Paul Samayoa Unknown, Attending [facility] 1.840.114 350.1.13.10 4.2.7.2.686 [id number] [facility] 2022-06-23 00:00:00 2022-06-23 00:00:00 Orders Only Doctor Unassigned, [place] [facility] 1.840.114 350.1.13.10 4.2.7.2.686 [id number] [facility] 2022-06-15 09:40:00 2022-06-15 09:40:00 Outpatient R ISIDROLIAN Dowling [facility] [id number] [facility] 2022-05-29 08:00:00 2022-05-29 08:00:00 Outpatient Farzana KASSANDRA PUGH [facility] [id number] [facility] 2022-05-15 09:20:00 2022-05-15 09:20:00 Outpatient R BENNETT MILLER [facility] [id number] [facility] 2022-05-11 09:30:00 2022-05-11 09:30:00 Outpatient Farzana PUGHKASSANDRA [facility] [id number] [facility] 2022-05-05 12:26:00 2022-05-05 16:11:00 Emergency X NORTON KARON [facility] ERT [id number] [facility] 2022-05-05 12:26:00 2022-05-05 16:11:00 Emergency Errol Karon [facility] 1.2.840.114 350.1.13.10 4.2.7.2.686 [id number] [facility] 2022-05-01 00:00:00 2022-05-01 00:00:00 Outpatient Farzana VARGAS PRASANNA [facility] [id number] [facility] 2022-04-26 08:30:00 2022-04-26 09:59:00 Emergency X ZION BRIDGES [facility] ERT [id number] [facility] 2022-04-26 08:30:00 2022-04-26 09:59:00 Emergency Zion Bridges [facility] 1.2.840.114 350.1.13.10 4.2.7.2.686 [id number] [facility] 2022-04-25 18:23:00 2022-04-25 21:55:00 Emergency X KENNEDY WHITLEY [facility] ERT [id number] [facility] 2022-04-25 18:23:00 2022-04-25 21:55:00 Emergency Kennedy Whitley [facility] 1.2.840.114 350.1.13.10 4.2.7.2.686 [id number] [facility] 2022-04-19 10:00:00 2022-04-19 10:00:00 Outpatient LIAN LABOY [facility] [id number] [facility] 2022-04-12 00:00:00 2022-04-12 00:00:00 [facility] 1.2.840.114 350.1.13.10 4.2.7.2.686 [id number] [facility] 2022-04-11 00:00:00 2022-04-11 00:00:00 Telephone Darrion Wyatt [facility] TOÑO?[facility] 1.2.840.114 350.1.13.10 4.2.7.2.686 [id number] [facility] 2022-04-10 00:00:00 2022-04-10 00:00:00 Telephone Anastasiia Pughssica [facility] TOÑO?[facility] 1.2.840.114 350.1.13.10 4.2.7.2.686 [id number] [facility] 2022-04-09 09:30:00 2022-04-09 09:30:00 [facility] 1.2.840.114 350.1.13.10 4.2.7.2.686 [id number] [facility] 2022-04-09 09:30:00 2022-04-09 09:21:44 Outpatient ANASTASIIA MCKINLEYSSICA [facility] [id number] [facility] 2022-04-07 13:41:00 2022-04-07 17:49:00 Emergency X ALEXISRU OLAMIDE [facility] ERT [id number] [facility] 2022-04-07 13:41:00 2022-04-07 17:49:00 Emergency Olamide Garvin [facility] 1.2.840.114 350.1.13.10 4.2.7.2.686 [id number] [facility] 2022-04-07 00:00:00 2022-04-07 00:00:00 Patient Secure Msg Doctor Unassigned, [place] [facility] 1..840.114 350.1.13.10 4.2.7.2.686 [id number] [facility] 2022-04-04 00:00:00 2022-04-04 00:00:00 Telephone Kassandra Pugh [facility] MEDICAL OFFICE BUILDING 1..840.114 350.1.13.10 4.2.7.2.686 [id number] [facility] 2022-04-02 10:30:00 2022-04-02 10:30:00 Outpatient R KASSANDRA PUGH [facility] [id number] [facility] 2022-03-28 00:00:00 2022-03-28 00:00:00 Patient Secure Msg Doctor Unassigned, [place] [facility] MEDICAL OFFICE BUILDING 1..840.114 350.1.13.10 4.2.7.2.686 [id number] [facility] 2022-03-24 07:35:00 2022-03-24 13:11:00 Emergency X KELLIE DUNCAN [facility] ERT [id number] [facility] 2022-03-24 07:35:00 2022-03-24 13:11:00 Emergency Kellie Duncan [facility] 1.2.840.114 350.1.13.10 4.2.7.2.686 [id number] [facility] 2022-03-23 10:30:00 2022-03-23 10:30:00 Outpatient KASSANDRA MCKINLEY [facility] [id number] [facility] 2022-03-23 00:00:00 2022-03-23 00:00:00 Telephone Darrion Wyatt [facility] TOÑO?[facility] OFF[facility] BU[facility] 1.2.840.114 350.1.13.10 4.2.7.2.686 [id number] [facility] 2022-03-22 00:00:00 2022-03-22 00:00:00 Telephone Darrion Wyatt [facility] TOÑO?[facility] OFF[facility] BU[facility] 1.2.840.114 350.1.13.10 4.2.7.2.686 [id number] [id number] [facility] 2022-03-22 00:00:00 2022-03-22 00:00:00 Refill Darrion Wyatt [facility] TOÑO?[facility] OFF[facility] BUILD[facility] 1.2.840.114 350.1.13.10 4.2.7.2.686 [id number] [facility] 2022-03-21 00:00:00 2022-03-21 00:00:00 Telephone Darrion Wyatt [facility] TOÑO?[employer] [facility] [employer] MED[facility] OFF[facility] BU[facility] 1.2.840.114 350.1.13.10 4.2.7.2.686 [id number] [facility] 2022-03-15 14:00:00 2022-03-15 14:36:19 Outpatient R REJI DÍAZ [facility] [id number] [facility] 2022-03-15 14:00:00 2022-03-15 14:36:19 Office Visit Reji Díaz [facility] PROFESS[facility] NAL BUILD[facility] 1..840.114 350.1.13.10 4.2.7.2.686 [id number] [facility] 2022-03-15 08:40:00 2022-03-15 10:47:00 Emergency X ANNA GOULD [facility] ERT [id number] [facility] 2022-03-15 08:40:00 2022-03-15 10:47:00 Emergency Anna Gould [facility] 1..840.114 350.1.13.10 4.2.7.2.686 [id number] [facility] 2022-03-14 10:30:00 2022-03-14 10:30:00 Outpatient PRASANNA LOOMIS [facility] [id number] [facility] 2022-03-11 09:22:00 2022-03-11 12:15:00 Emergency X ANGELICA VIVEROS [facility] ERT [id number] [facility] 2022-03-11 09:22:00 2022-03-11 12:15:00 Emergency Angelica Viveros [facility] 1.2.840.114 350.1.13.10 4.2.7.2.686 [id number] [facility] 2022-03-06 08:30:00 2022-03-06 08:30:00 Outpatient KASSANDRA MCKINLEY [facility] [id number] [facility] 2022-03-02 00:00:00 2022-03-02 00:00:00 Telephone [facility] 1.2.840.114 350.1.13.10 4.2.7.2.686 [id number] [facility] 2022-02-28 00:00:00 2022-02-28 00:00:00 Patient Secure Msg Doctor Unassigned, [place] [facility] TOÑO?[facility] 1..840.114 350.1.13.10 4.2.7.2.686 [id number] [facility] 2022-02-27 09:30:00 2022-02-27 09:49:42 Outpatient R KASSANDRA PUGH [facility] [id number] [facility] 2022-02-27 09:30:00 2022-02-27 09:49:42 [facility] 1.840.114 350.1.13.10 4.2.7.2.686 [id number] [facility] 2022-02-27 08:00:00 2022-02-27 09:12:17 Office Visit [facility]ijay [facility] MED[facility] OFF[facility] BUILD[facility] 1.840.114 350.1.13.10 4.2.7.2.686 [id number] [facility] 2022-02-26 11:30:00 2022-02-26 11:30:00 Outpatient R KASSANDRA PUGH [facility] [id number] [facility] 2022-02-21 01:20:00 2022-02-21 03:44:00 Emergency X MAGGIE HAMILTON [facility] ERT [id number] [facility] 2022-02-21 01:20:00 2022-02-21 03:44:00 Emergency Maggie Hamilton [facility] 1.840.114 350.1.13.10 4.2.7.2.686 [id number] [facility] 2022-02-19 00:00:00 2022-02-19 00:00:00 Patient Secure Msg ZamudioKendal [facility] MED[facility] OFF[facility] BUILDING 1.840.114 350.1.13.10 4.2.7.2.686 [id number] [facility] 2022-02-19 00:00:00 2022-02-19 00:00:00 Patient Secure Msg Kendal Zamudio [facility] 1.2840.114 350.1.13.10 4.2.7.2.686 [id number] [id number] [facility] 2022-02-19 00:00:00 2022-02-19 00:00:00 Patient Secure Msg Ade Bradford [facility] 1.2840.114 350.1.13.10 4.2.7.2.686 [id number] [facility] 2022-02-19 00:00:00 2022-02-19 00:00:00 Patient Secure Msg SalazarRoss Farzana [facility] 1.2840.114 350.1.13.10 4.2.7.2.686 [id number] [facility] 2022 11:58:00 2022 15:13:00 Emergency MAGGIE MONTANEZ [facility] ERT [id number] [facility] 2022 11:58:00 2022 15:13:00 Emergency Maggie Hamilton [facility] 1.84.114 350.1.13.10 4.2.7.2.686 [id number] [facility] 2022-02-09 09:00:00 2022-02-09 09:00:00 Outpatient CRICKET FRYE [facility] [id number] [facility] 2022-02-06 10:00:00 2022-02-06 10:00:00 Outpatient VIJAY ARAUZ [facility] [id number] [facility] 2022-02-05 09:45:00 2022-02-05 10:05:00 Nurse Visit Nurse, Filippo [facility] Ileana Medrano [facility] 1.840.114 350.1.13.10 4.2.7.2.686 [id number] [facility] 2022-02-05 09:20:00 2022-02-05 09:20:00 Outpatient FLACO KEE [facility] [id number] [facility] 2022-01-26 00:00:00 2022-01-26 00:00:00 Case Management Prasanna Vargas [facility] PROFESS[facility] NAL BUILDING 1.840.114 350.1.13.10 4.2.7.2.686 [id number] [facility] 2022-01-22 11:00:00 2022-01-22 11:00:00 Outpatient VIJAY ARAUZ [facility] [id number] [facility] 2022-01-19 00:00:00 2022-01-19 00:00:00 Patient Secure Msg Doctor Unassigned, [place] [facility] 1.840.114 350.1.13.10 4.2.7.2.686 [id number] [facility] 2022-01-18 05:17:00 2022-01-18 10:25:00 Emergency X BERNARDO LEVY [facility] ERT [id number] [facility] 2022-01-18 05:17:00 2022-01-18 10:25:00 Emergency Jayy Kennedy [facility] 1.0.114 350.1.13.10 4.2.7.2.686 [id number] [facility] 2022-01-15 08:34:00 2022-01-15 10:49:00 Emergency X MAURA SAMAYOA [facility] ERT [id number] [facility] 2022-01-15 08:34:00 2022-01-15 10:49:00 Emergency Ana Larry Maura Romero [facility] 1..840.114 350.1.13.10 4.2.7.2.686 [id number] [facility] 2022-01-08 18:04:00 2022-01-08 20:09:00 Emergency X HUMBERTO OCHOA [facility] ERT [id number] [facility] 2022-01-08 18:04:00 2022-01-08 20:09:00 Emergency Humberto Ochoa [facility] 1..840.114 350.1.13.10 4.2.7.2.686 [id number] [facility] 2021-12-12 13:30:00 2021-12-12 13:40:21 Outpatient Farzana CARNES TETO [facility] [id number] [facility] 2021-12-12 13:30:00 2021-12-12 13:40:21 Office Visit Pr[facility]anna [facility]argas [facility] 1..840.114 350.1.13.10 4.2.7.2.686 [id number] [facility] 2021-12-12 13:30:00 2021-12-12 13:40:21 Outpatient Farzana CARNES [facility] [id number] [facility] 2021-12-12 13:30:00 2021-12-12 13:40:21 Outpatient Farzana CARNES [facility] [id number] [facility] 2021-12-11 16:15:00 2021-12-11 16:15:00 Outpatient ADE KING [facility] [id number] [facility] 2021-12-05 14:15:00 2021-12-05 14:15:00 Outpatient R LYSSA ROMULO [facility] [id number] [facility] 2021-11-28 08:49:00 2021-11-28 11:02:00 Emergency X KARON NORTON [facility] ERT [id number] [facility] 2021-11-28 08:49:00 2021-11-28 11:02:00 Emergency Karon Norton [facility] 1.0.114 350.1.13.10 4.2.7.2.686 [id number] [facility] 2021-11-28 00:00:00 2021-11-28 00:00:00 Patient Secure Msg Cricket Taylor [facility] [employer] [facility] MATERNAL & CHILD [facility] 1..114 350.1.13.10 4.2.7.2.686 [id number] [facility] 2021-11-24 18:14:00 2021-11-24 21:04:00 Emergency X Kaycee MÉNDEZ [facility] ERT [id number] [facility] 2021-11-24 18:14:00 2021-11-24 21:04:00 Emergency Kaycee Méndez [facility] 1..114 350.1.13.10 4.2.7.2.686 [id number] [facility] 2021-11-24 00:00:00 2021-11-24 00:00:00 Telephone Cricket Taylor [facility] [facility] NORTH & CHILD [facility] 1..114 350.1.13.10 4.2.7.2.686 [id number] [facility] 2021-11-20 00:00:00 2021-11-20 00:00:00 Patient Secure Msg Kendal Zamudio [facility] 1.2.840.114 350.1.13.10 4.2.7.2.686 [id number] [facility] 2021-11-19 00:00:00 2021-11-19 00:00:00 Letter (Out) Leslie Santacruz [facility] 1.2.840.114 350.1.13.10 4.2.7.2.686 [id number] [facility] 2021-11-18 10:41:40 2021-11-18 23:59:00 Outpatient [facility] [id number] [facility] 2021-11-18 10:41:40 2021-11-18 23:59:00 Hospital Encounter Oliver [facility] MEDICAL OFFICE BUILDING 1.2.840.114 350.1.13.10 4.2.7.2.686 [id number] [facility] 2021-11-18 10:20:00 2021-11-18 10:53:20 Urgent Care Oliver, [facility]?[employer] [facility] [facility] [facility] MED[facility] OFF[facility] BU[facility] 1.2.840.114 350.1.13.10 4.2.7.2.686 [id number] [facility] 2021-11-09 10:30:00 2021-11-09 10:30:00 Outpatient R CELINA MIXON [facility] [id number] [facility] 2021-10-25 13:20:00 2021-10-25 13:20:00 [facility] MEDICAL OFFICE BUILDING 1.2.840.114 350.1.13.10 4.2.7.2.686 [id number] [facility] 2021-10-25 13:20:00 2021-10-25 12:47:59 Outpatient R ILEANA MEDRANO [facility] [id number] [facility] 2021-10-25 00:00:00 2021-10-25 00:00:00 Patient Secure Msg Vijay Martinez [facility] TOÑO?[facility] MEDICAL OFFICE BUILDING 1.2.840.114 350.1.13.10 4.2.7.2.686 [id number] [facility] 2021-10-25 00:00:00 2021-10-25 00:00:00 Telephone [facility]ijay [facility] MEDICAL OFFICE BUILDING 1.2.840.114 350.1.13.10 4.2.7.2.686 [id number] [facility] 2021-10-25 00:00:00 2021-10-25 00:00:00 Telephone Provider, Filippo [facility] TOÑO?[facility] MEDICAL OFFICE BUILDING 1.2.840.114 350.1.13.10 4.2.7.2.686 [id number] [facility] 2021-10-25 00:00:00 2021-10-25 00:00:00 Telephone Nurse, Filippo [facility] TOÑO?[facility] MEDICAL OFFICE BUILDING 1.2.840.114 350.1.13.10 4.2.7.2.686 [id number] [facility] 2021-10-24 10:15:00 2021-10-24 10:15:00 Outpatient ROMULO BROWNING [facility] [id number] [facility] 2021-10-24 10:15:00 2021-10-24 10:15:00 Outpatient ROMULO BROWNING [facility] [id number] [facility] 2021-10-11 09:30:00 2021-10-11 09:30:00 Outpatient ROMULO BROWNING [facility] [id number] [facility] 2021-10-10 13:30:00 2021-10-10 13:30:00 Outpatient PRASANNA LOOMIS [facility] [id number] [facility] 2021-10-10 13:30:00 2021-10-10 13:30:00 Outpatient R PRASANNA VARGAS [facility] [id number] [facility] 2021-10-10 13:30:00 2021-10-10 13:30:00 Outpatient R PRASANNA VARGAS [facility] [id number] [facility] 2021-10-10 13:30:00 2021-10-10 13:30:00 Outpatient R PRASANNA VARGAS [facility] [id number] [facility] 2021-10-10 13:30:00 2021-10-10 13:30:00 Outpatient R PRASANNA VARGAS [facility] [id number] [facility] 2021-10-10 13:30:00 2021-10-10 13:30:00 Outpatient R PRASANNA VARGAS [facility] [id number] [facility] 2021-10-10 13:30:00 2021-10-10 13:30:00 Outpatient PRASANNA LOOMIS [facility] [id number] [facility] 2021-10-05 00:00:00 2021-10-05 00:00:00 Patient [facility] MED[facility] OFF[facility] BU[facility] 1.2.840.114 350.1.13.10 4.2.7.2.686 [id number] [facility] 2021-10-05 00:00:00 2021-10-05 00:00:00 Patient Secure g [facility] MEDICAL OFFICE BUILDING 1.2.840.114 350.1.13.10 4.2.7.2.686 [id number] [facility] 2021-10-04 00:00:00 2021-10-04 00:00:00 Pre Visit Outreach Melia Rodriguez [place] 1.2.840.114 350.1.13.10 4.2.7.2.686 [id number] [facility] 2021-09-28 13:30:00 2021-09-28 13:45:00 Office Visit Onur Celina A [facility] [address] 1.2.840.114 350.1.13.10 4.2.7.2.686 [id number] [facility] 2021-09-28 13:30:00 2021-09-28 13:30:00 Outpatient CELINA STONE [facility] [id number] [facility] 2021-09-28 13:30:00 2021-09-28 13:30:00 Outpatient CELINA STONE [facility] [id number] [facility] 2021-09-28 00:00:00 2021-09-28 00:00:00 Patient Secure Msg OnurCelina [facility] 1.2.840.114 350.1.13.10 4.2.7.2.686 [id number] [facility] 2021-09-27 14:00:00 2021-09-27 14:00:00 Outpatient TETO BRANTLEY [facility] [id number] [facility] 2021-09-27 09:30:00 2021-09-27 09:30:00 Outpatient DANIA RICARDO [facility] [id number] [facility] 2021-09-27 09:30:00 2021-09-27 09:30:00 Outpatient DANIA RICARDO [facility] [id number] [facility] 2021-09-27 09:30:00 2021-09-27 09:30:00 Outpatient DANIA RICARDO [facility] [id number] [facility] 2021-09-26 10:45:00 2021-09-26 10:45:00 Outpatient R CRICKET TAYLOR [facility] [id number] [facility] 2021-09-26 10:45:00 2021-09-26 10:45:00 Outpatient R CRICKET TAYLOR [facility] [id number] [facility] 2021-09-26 00:00:00 2021-09-26 00:00:00 Patient Secure [facility] BU[facility] 1.2.840.114 350.1.13.10 4.2.7.2.686 [id number] [facility] 2021-09-26 00:00:00 2021-09-26 00:00:00 Patient Secure Vijay Caraballo [facility] TOÑO?[employer] [facility] MEDICAL OFF[facility] BUILDING 1.2.840.114 350.1.13.10 4.2.7.2.686 [id number] [facility] 2021-09-25 10:20:00 2021-09-25 11:10:42 Urgent Care Flaco Boyd Ramsey Medranoanda [facility] MEDICAL OFFICE BUILDING 1.2.840.114 350.1.13.10 4.2.7.2.686 [id number] [facility] 2021-09-25 10:20:00 2021-09-25 11:10:42 Outpatient R OLIVERFLACO [facility] [id number] [facility] 2021-09-25 10:20:00 2021-09-25 10:20:00 Outpatient R FLACO BOYD [facility] [id number] [facility] 2021-09-25 10:00:00 2021-09-25 10:00:00 Outpatient R PRASANNA VARGAS [facility] [id number] [facility] 2021-09-25 00:00:00 2021-09-25 00:00:00 Telephone Noelle Boydtany [facility] MEDICAL OFFICE BUILDING 1.2.840.114 350.1.13.10 4.2.7.2.686 [id number] [facility] 2021-09-25 00:00:00 2021-09-25 00:00:00 Patient Secure Msg [facility]anna [facility] 1.2.840.114 350.1.13.10 4.2.7.2.686 [id number] [facility] 2021-09-25 00:00:00 2021-09-25 00:00:00 Telephone Cricket Taylor [facility] [employer] [facility] MATERNAL & [facility]ILD [facility] 1.2.840.114 350.1.13.10 4.2.7.2.686 [id number] [facility] 2021-09-25 00:00:00 2021-09-25 00:00:00 Telephone Celina Mixon [facility] 1.2.840.114 350.1.13.10 4.2.7.2.686 [id number] [facility] 2021-09-15 00:00:00 2021-09-15 00:00:00 Patient Secure Msg Kendal Zamudio [facility] MEDICAL OFFICE BUILDING 1.2840.114 350.1.13.10 4.2.7.2.686 [id number] [facility] 2021-09-15 00:00:00 2021-09-15 00:00:00 Patient Secure Msg Kendal Zamudio [facility] TOÑO?[facility] MEDICAL OFFICE BUILDING 1.2.840.114 350.1.13.10 4.2.7.2.686 [id number] [id number] [facility] 2021-09-15 00:00:00 2021-09-15 00:00:00 Patient Secure Msg Kendal Zamudio [facility] TOÑO?[facility] MEDICAL OFFICE BUILDING 1..114 350.1.13.10 4.2.7.2.686 [id number] 044 [id number] [facility] 2021-09-14 00:00:00 2021-09-14 00:00:00 Patient Secure Msg Vijay Martinez [facility] TOÑO?[facility] MEDICAL OFFICE BUILDING 1..114 350.1.13.10 4.2.7.2.686 [id number] [facility] 2021-09-14 00:00:00 2021-09-14 00:00:00 Patient Secure Msg Doctor Unassigned, [place] [facility] MEDICAL OFFICE BUILDING 1.0114 350.1.13.10 4.2.7.2.686 [id number] [facility] 2021-09-12 10:30:00 2021-09-12 10:30:00 Outpatient CELINA STONE [facility] [id number] [facility] 2021-09-12 10:30:00 2021-09-12 10:30:00 Outpatient CELINA STONE [facility] [id number] [facility] 2021-09-12 00:00:00 2021-09-12 00:00:00 Patient Secure Msg Daniel Dsouza [facility] 1..114 350.1.13.10 4.2.7.2.686 [id number] [facility] 2021-09-12 00:00:00 2021-09-12 00:00:00 Orders Only Doctor Unassigned, [place] [facility] 1.0.114 350.1.13.10 4.2.7.2.686 [id number] [facility] 2021-09-12 00:00:00 2021-09-12 00:00:00 Patient Secure Msg Vijay Martinez [facility] TOÑO?[facility] MED[facility] OFF[facility] BUILDING 1.2840.114 350.1.13.10 4.2.7.2.686 [id number] [facility] 2021-09-05 00:00:00 2021-09-05 00:00:00 Patient Secure Msg Vijay Martinez [facility] TOÑO?[facility] 1.2840.114 350.1.13.10 4.2.7.2.686 [id number] [id number] [facility] 2021-09-05 00:00:00 2021-09-05 00:00:00 Patient Secure Msg Doctor Unassigned, [place] [facility] 1.840.114 350.1.13.10 4.2.7.2.686 [id number] [facility] 2021-09-05 00:00:00 2021-09-05 00:00:00 Patient Secure Msg Doctor Unassigned, [place] [facility] 1.2840.114 350.1.13.10 4.2.7.2.686 [id number] [id number] [facility] 2021-09-04 00:00:00 2021-09-04 00:00:00 Patient Secure [facility] 1.2840.114 350.1.13.10 4.2.7.2.686 [id number] [facility] 2021-08-28 00:00:00 2021-08-28 00:00:00 Patient Secure Msg Harsh Charles [facility] 1.840.114 350.1.13.10 4.2.7.2.686 [id number] [facility] 2021-08-25 00:00:00 2021-08-25 00:00:00 Telephone Dania Penning[facility] 1.2840.114 350.1.13.10 4.2.7.2.686 [id number] [facility] 2021-08-25 00:00:00 2021-08-25 00:00:00 Patient Secure Msg Vijay Martinez [facility] 1.2840.114 350.1.13.10 4.2.7.2.686 [id number] [id number] [facility] 2021-08-24 00:00:00 2021-08-24 00:00:00 Telephone Vijay Martinez [facility] 1.2840.114 350.1.13.10 4.2.7.2.686 [id number] [id number] [facility] 2021-08-24 00:00:00 2021-08-24 00:00:00 Patient Secure Msg Vijay Martinez [facility] 1.2840.114 350.1.13.10 4.2.7.2.686 [id number] [facility] 2021-08-23 00:00:00 2021-08-23 00:00:00 Patient Secure Msg Vijay Martinez [facility] 1.2840.114 350.1.13.10 4.2.7.2.686 [id number] [id number] [facility] 2021-08-23 00:00:00 2021-08-23 00:00:00 Telephone Vijay Martinez [facility] 1.2840.114 350.1.13.10 4.2.7.2.686 [id number] [id number] [facility] 2021-08-22 00:00:00 2021-08-22 00:00:00 Telephone Vijay Martinez [facility] TOÑO?[facility] 1.840.114 350.1.13.10 4.2.7.2.686 [id number] [id number] [facility] 2021-08-22 00:00:00 2021-08-22 00:00:00 Patient Secure Msg Hallie Wilkinson [facility] TOÑO?[facility] MEDICAL OFFICE BUILDING 1.840.114 350.1.13.10 4.2.7.2.686 [id number] [facility] 2021-08-18 00:00:00 2021-08-18 00:00:00 Telephone Vijay Martinez [facility] TOÑO?[employer] CL[facility] MED[facility] OFF[facility] BUILDING 1.840.114 350.1.13.10 4.2.7.2.686 [id number] 044 [id number] [facility] 2021-08-17 09:00:00 2021-08-17 09:00:00 Outpatient CELINA STONE [facility] [id number] [facility] 2021-08-17 09:00:00 2021-08-17 09:00:00 Outpatient CELINA STONE [facility] [id number] [facility] 2021-08-17 00:00:00 2021-08-17 00:00:00 Patient Secure Msg Prasanna Vargas [facility] PROFESSIO NAL BUILDING 1..840.114 350.1.13.10 4.2.7.2.686 [id number] [facility] 2021-08-17 00:00:00 2021-08-17 00:00:00 Patient Secure Msg Vijay Martinez [facility] TOÑO?[facility] MEDICAL OFFICE BUILDING 1.2840.114 350.1.13.10 4.2.7.2.686 [id number] [facility] 2021-08-17 00:00:00 2021-08-17 00:00:00 Patient Secure Msg Vijay Martinez [facility] MEDICAL OFFICE BUILDING 1.2840.114 350.1.13.10 4.2.7.2.686 [id number] 044 [id number] [facility] 2021-08-16 00:00:00 2021-08-16 00:00:00 Patient Secure Msg Vijay Martinez [facility] MED[facility] OFF[facility] BUILDING 1.2840.114 350.1.13.10 4.2.7.2.686 [id number] 044 [id number] [facility] 2021-08-16 00:00:00 2021-08-16 00:00:00 Patient Secure Msg Doctor Unassigned, [place] [facility] TOÑO?[facility] MEDICAL OFFICE BUILDING 1.84.114 350.1.13.10 4.2.7.2.686 [id number] [facility] 2021-08-16 00:00:00 2021-08-16 00:00:00 Patient Secure Msg Vijay Martinez [facility] MEDICAL OFFICE BUILDING 1.284.114 350.1.13.10 4.2.7.2.686 [id number] 044 [id number] [facility] 2021-08-16 00:00:00 2021-08-16 00:00:00 Patient Secure Msg Vijay Martinez [facility] TOÑO?[facility] MEDICAL OFFICE BUILDING 1.284.114 350.1.13.10 4.2.7.2.686 [id number] 044 [id number] [facility] 2021-08-15 15:30:00 2021-08-15 16:16:42 Office Visit Adán Kim [facility] BU[facility]ING 1.840.114 350.1.13.10 4.2.7.2.686 [id number] [facility] 2021-08-15 15:30:00 2021-08-15 16:16:42 [facility] [id number] [facility] 2021-08-15 15:30:00 2021-08-15 15:30:00 Outpatient Farzana KIM [facility] [id number] [facility] 2021-08-15 15:30:00 2021-08-15 15:30:00 Outpatient ADÁN DIEGO [facility] [id number] [facility] 2021-08-15 15:30:00 2021-08-15 15:30:00 Outpatient Farzana KIM [facility] [id number] [facility] 2021-08-15 09:27:00 2021-08-15 12:26:00 Emergency MAURA DALE [facility] ERT [id number] [facility] 2021-08-15 09:27:00 2021-08-15 12:26:00 Emergency Maura Samayoa [facility] 1..840.114 350.1.13.10 4.2.7.2.686 [id number] [facility] 2021-08-15 09:27:00 2021-08-15 12:26:00 Emergency MAURA DALE [facility] ERT [id number] [facility] 2021-08-15 00:00:00 2021-08-15 00:00:00 Patient Secure Msg Doctor Unassigned, [place] [facility] 1..840.114 350.1.13.10 4.2.7.2.686 [id number] [facility] 2021-08-14 13:25:00 2021-08-14 23:59:00 Outpatient VIJAY ARAUZ [facility] [id number] [facility] 2021-08-14 13:25:00 2021-08-14 23:59:00 Outpatient R VIJAY MARTINEZ [facility] [id number] [facility] 2021-08-14 13:25:00 2021-08-14 13:25:00 Outpatient R VÍCTORVIJAY Cannon [facility] [id number] [facility] 2021-08-14 12:19:07 2021-08-14 13:24:00 Outpatient R VÍCTORVIJAY Cannon [facility] [id number] [facility] 2021-08-14 12:19:07 2021-08-14 13:24:00 Outpatient R VÍCTORVIJAY Cannon [facility] [id number] [facility] 2021-08-14 12:30:00 2021-08-14 13:01:24 Program Research Specialist Visit Lab, Filippo Reneekassandra [facility] MEDICAL OFFICE BUILDING 1.2.840.114 350.1.13.10 4.2.7.2.686 [id number] [facility] 2021-08-14 12:30:00 2021-08-14 12:45:00 Program Research Specialist Visit Lab, Filippo Reneekassandra [facility]DAY[facility] MEDICAL OFFICE BUILDING 1.2.840.114 350.1.13.10 4.2.7.2.686 [id number] [facility] 2021-08-14 11:30:00 2021-08-14 12:31:12 Office Visit [facility] MEDICAL OFFICE BUILDING 1.2.840.114 350.1.13.10 4.2.7.2.686 [id number] [id number] [facility] 2021-08-14 11:30:00 2021-08-14 12:31:12 Outpatient R JUANCYIE [facility] [id number] [facility] 2021-08-14 00:00:00 2021-08-14 00:00:00 Patient Secure Msg Vijay Martinez [facility] TOÑO?[facility] BU[facility] 1.2.840.114 350.1.13.10 4.2.7.2.686 [id number] [facility] 2021-08-14 00:00:00 2021-08-14 00:00:00 Patient Secure Vijay Caraballo [facility] TOÑO?[facility] MEDICAL OFFICE BUILDING 1.2.840.114 350.1.13.10 4.2.7.2.686 [id number] [facility] 2021-08-09 14:45:00 2021-08-09 14:45:00 Outpatient R ADÁN KIM [facility] [id number] [facility] 2021-08-09 00:00:00 2021-08-09 00:00:00 Telephone Vijay Martinez [facility] TOÑO?[facility] 1.2.840.114 350.1.13.10 4.2.7.2.686 [id number] [facility] 2021-08-08 11:30:00 2021-08-08 23:59:00 Outpatient R JUAN VIJAY [facility] [id number] [facility] 2021-08-08 11:30:00 2021-08-08 23:59:00 Hospital Encounter Vijay Martinez [facility] TOÑO?[facility] 1.2.840.114 350.1.13.10 4.2.7.2.686 [id number] [facility] 2021-08-08 11:15:00 2021-08-08 11:15:00 Outpatient R JUAN VIJAY [facility] [id number] [facility] 2021-08-08 11:00:00 2021-08-08 11:00:00 Outpatient R VIJAY MARTINEZ [facility] [id number] [facility] 2021-08-08 00:00:00 2021-08-08 00:00:00 Patient Secure Msg Doctor Unassigned, [place] [facility] 1.114 350.1.13.10 4.2.7.2.686 [id number] [facility] 2021-08-07 09:30:00 2021-08-07 10:23:21 Office Visit Vijay Martinez [facility] TOÑO?[facility] MEDICAL OFFICE BUILDING 1.114 350.1.13.10 4.2.7.2.686 [id number] [facility] 2021-08-07 09:30:00 2021-08-07 10:23:21 Outpatient R VÍCTORVIJAY Cannon [facility] [id number] [facility] 2021-08-07 09:30:00 2021-08-07 09:30:00 Outpatient R VÍCTORVIJAY Cannon [facility] [id number] [facility] 2021-08-07 00:00:00 2021-08-07 00:00:00 Patient Secure Msg Vijay Martinez [facility] TOÑO?[facility] MEDICAL OFFICE BUILDING 1.114 350.1.13.10 4.2.7.2.686 [id number] [facility] 2021-08-07 00:00:00 2021-08-07 00:00:00 Patient Secure Msg Vijay Martinez [facility] TOÑO?[facility] MEDICAL OFFICE BUILDING 1.114 350.1.13.10 4.2.7.2.686 [id number] [facility] 2021-08-07 00:00:00 2021-08-07 00:00:00 Patient Secure Msg Celina Mixon [facility] 1.114 350.1.13.10 4.2.7.2.686 [id number] [facility] 2021-08-04 10:00:00 2021-08-04 10:00:00 Outpatient R PETRA RENO [facility] [id number] [facility] 2021-08-04 00:00:00 2021-08-04 00:00:00 Patient Secure Msg Vijay Martinez [facility] BUILDING 1.84114 350.1.13.10 4.2.7.2.686 [id number] [facility] 2021-08-03 11:00:00 2021-08-03 12:48:43 Office Visit Jayy Diaz [facility] [employer] 05.14.840.114 350.1.13.10 4.2.7.2.686 [id number] [facility] 2021-08-03 11:00:00 2021-08-03 12:48:43 Outpatient R EMILY [facility] [id number] [facility] 2021-08-03 11:00:00 2021-08-03 11:00:00 Outpatient R JAYY DIAZ [facility] [id number] [facility] 2021-08-03 00:00:00 2021-08-03 00:00:00 Patient Secure Yin Zhengine A [facility] [place] .84.114 350.1.13.10 4.2.7.2.686 [id number] [facility] 2021-08-02 00:00:00 2021-08-02 00:00:00 Telephone [facility]ij[facility] 1.84.114 350.1.13.10 4.2.7.2.686 [id number] [facility] 2021-07-21 08:00:00 2021-07-21 08:52:53 Outpatient DARRION QUIROZ HOWARD [facility] [id number] [facility] 2021-07-17 11:30:00 2021-07-17 11:30:00 Outpatient Farzana VÍCTORVIJAY Cannon [facility] [id number] [facility] 2021-07-17 00:00:00 2021-07-17 00:00:00 Patient Secure Msg Vijay Martinez [facility] TOÑO?[facility] OFFICE BUILDING 1.2.840.114 350.1.13.10 4.2.7.2.686 [id number] [id number] [facility] 2021-06-19 00:00:00 2021-06-19 00:00:00 Telephone VíctorVijay cannon [facility] MED[facility] OFFICE BUILDING 1.2.840.114 350.1.13.10 4.2.7.2.686 [id number] [facility] 2021-06-09 00:00:00 2021-06-09 00:00:[address]ji Díaz [facility] BU[facility] 1.2.840.114 350.1.13.10 4.2.7.2.686 [id number] [facility] 2021-06-06 11:15:00 2021-06-06 11:15:00 Outpatient TETO BRANTLEY [facility] [id number] [facility] 2021-06-06 11:15:00 2021-06-06 11:15:00 Outpatient TETO BRANTLEY [facility] [id number] [facility] 2021-06-02 15:45:00 2021-06-02 15:45:00 Outpatient CLAUDETTE CEDILLO [facility] [id number] [facility] 2021-05-31 10:00:00 2021-05-31 10:46:31 Outpatient R VIJAY MARTINEZ [facility] [id number] [facility] 2021-05-31 10:00:00 2021-05-31 10:46:31 Office Visit Vijay Martinez [facility] TOÑO?[facility] MEDICAL OFFICE BUILDING 1.2.840.114 350.1.13.10 4.2.7.2.686 [id number] [facility] 2021-05-31 10:00:00 2021-05-31 10:46:31 Outpatient R VIJAY MARTINEZ [facility] [id number] [facility] 2021-05-31 00:00:00 2021-05-31 00:00:00 Orders Only Doctor Unassigned, [place] [facility] 1.2.840.114 350.1.13.10 4.2.7.2.686 [id number] [facility] 2021-05-26 00:00:00 2021-05-26 00:00:00 Telephone Skylar Groves [facility] MEDICAL OFFICE BUILDING 1.2840.114 350.1.13.10 4.2.7.2.686 [id number] [facility] 2021-05-26 00:00:00 2021-05-26 00:00:00 Patient Secure Msg [facility] 1.2840.114 350.1.13.10 4.2.7.2.686 [id number] [facility] 2021-05-25 14:00:00 2021-05-25 14:30:00 Telemedici ne Visit Skylar Groves [facility] TOÑO?[facility] MEDICAL OFFICE BUILDING 1.2.840.114 350.1.13.10 4.2.7.2.686 [id number] [facility] 2021-05-25 14:00:00 2021-05-25 14:00:00 Outpatient R SKYLAR GROVES [facility] [id number] [facility] 2021-05-25 14:00:00 2021-05-25 14:00:00 Outpatient R SKYLAR GROVES [facility] [id number] [facility] 2021-05-25 00:00:00 2021-05-25 00:00:00 Patient Secure Msg Skylar Groves [facility] TOÑO?[facility] MEDICAL OFFICE BUILDING 1.2.840.114 350.1.13.10 4.2.7.2.686 [id number] [facility] 2021-05-25 00:00:00 2021-05-25 00:00:00 Patient Secure Msg Skylar Groves [facility] TOÑO?[facility] MEDICAL OFFICE BUILDING 1.2.840.114 350.1.13.10 4.2.7.2.686 [id number] [facility] 2021-05-24 00:00:00 2021-05-24 00:00:00 Telephone Rad Serra KPilarHPilar [facility] BUILDING 1.2.840.114 350.1.13.10 4.2.7.2.686 [id number] [facility] 2021-05-24 00:00:00 2021-05-24 00:00:00 Patient Secure Msg Rad SerraHPilar [facility] BUILDING 1.2.840.114 350.1.13.10 4.2.7.2.686 [id number] [facility] 2021-05-24 00:00:00 2021-05-24 00:00:00 Patient Secure Msg [place]Carmelina ibrahimrico A [facility] TOÑO?[facility] MEDICAL OFFICE BUILDING 1.2.840.114 350.1.13.10 4.2.7.2.686 [id number] [facility] 2021-05-23 10:00:00 2021-05-23 10:00:00 Outpatient R [facility] [id number] [facility] 2021-05-23 10:00:00 2021-05-23 10:00:00 Outpatient R [facility] [id number] [facility] 2021-05-23 00:00:00 2021-05-23 00:00:00 Patient Secure Msg Carmelina Evansrico A [facility] BUILD[facility] 1..840.114 350.1.13.10 4.2.7.2.686 [id number] [facility] 2021-05-16 09:00:00 2021-05-16 09:00:00 Outpatient R TETO CARNES [facility] [id number] [facility] 2021-05-12 00:00:00 2021-05-12 00:00:00 Orders Only Doctor Unassigned, [place] [facility] 1..840.114 350.1.13.10 4.2.7.2.686 [id number] [facility] 2021-05-10 13:00:00 2021-05-10 13:00:00 Outpatient R CLAUDETTE EVANS [facility] [id number] [facility] 2021-05-10 13:00:00 2021-05-10 13:00:00 Outpatient R CLAUDETTE EVANS [facility] [id number] [facility] 2021-05-09 00:00:00 2021-05-09 00:00:00 Telephone Prasanna Vargas [facility] PROFESSIO NAL BUILDING 1..840.114 350.1.13.10 4.2.7.2.686 [id number] [facility] 2021-05-09 00:00:00 2021-05-09 00:00:00 Patient Secure Msg Rad Ser[facility]Pilar [facility] 1.2.840.114 350.1.13.10 4.2.7.2.686 [id number] [facility] 2021-05-08 16:00:00 2021-05-08 16:00:00 Outpatient JE CRABTREE [facility] [id number] [facility] 2021-05-08 16:00:00 2021-05-08 16:00:00 Outpatient JE CRABTREE [facility] [id number] [facility] 2021-05-08 00:00:00 2021-05-08 00:00:00 Patient Secure Msg Rad SerraPilar [facility] BUILDING 1.2.840.114 350.1.13.10 4.2.7.2.686 [id number] [facility] 2021-05-08 00:00:00 2021-05-08 00:00:00 Patient Secure Msg Rad SerraPilar [facility] BUILDING 1.2.840.114 350.1.13.10 4.2.7.2.686 [id number] [facility] 2021-05-04 00:00:00 2021-05-04 00:00:00 Patient Secure Msg Rad SerraPilar [facility] NAL BUILDING 1.2.840.114 350.1.13.10 4.2.7.2.686 [id number] [facility] 2021-05-04 00:00:00 2021-05-04 00:00:00 Patient Secure Msg Reji Díaz [facility] 1.2.840.114 350.1.13.10 4.2.7.2.686 [id number] [facility] 2021-05-03 11:15:36 2021-05-03 23:59:00 [facility] [id number] 2021-05-03 11:15:36 2021-05-03 23:59:00 [facility] 1.2.840.114 350.1.13.10 4.2.7.2.686 [id number] [facility] 2021-05-03 00:00:00 2021-05-03 00:00:00 Telephone Claudette Evans [facility] TOÑO?[facility] MEDICAL OFFICE BUILDING 1.2.840.114 350.1.13.10 4.2.7.2.686 [id number] 044 [id number] [facility] 2021-05-02 00:00:00 2021-05-02 00:00:00 Telephone aRd Serra [facility] BUILDING 1..840.114 350.1.13.10 4.2.7.2.686 [id number] [facility] 2021-05-02 00:00:00 2021-05-02 00:00:00 Patient Secure Msg Claudette Evans Kassandra [facility] TOÑO?[facility] MEDICAL OFFICE BUILDING 1.2.840.114 350.1.13.10 4.2.7.2.686 [id number] [facility] 2021-05-02 00:00:00 2021-05-02 00:00:00 Telephone Claudette Evans [facility] TOÑO?[facility] MEDICAL OFFICE BUILDING 1.2.840.114 350.1.13.10 4.2.7.2.686 [id number] [id number] [facility] 2021-05-02 00:00:00 2021-05-02 00:00:00 Patient Secure Msg Rad Serra [facility] PROFESSIO NAL BUILDING 1.84.114 350.1.13.10 4.2.7.2.686 [id number] [facility] 2021-05-02 00:00:00 2021-05-02 00:00:00 Patient Secure Msg Claudette Evans [facility] TOÑO?[facility] MEDICAL OFFICE BUILDING 1.84114 350.1.13.10 4.2.7.2.686 [id number] [facility] 2021-04-28 00:00:00 2021-04-28 00:00:00 Patient Secure Msg Claudette Evans [facility] TOÑO?[facility] OFFICE BUILDING 1.84.114 350.1.13.10 4.2.7.2.686 [id number] [facility] 2021-04-27 14:24:00 2021-04-27 15:49:00 Emergency X MAGGIE HAMILTON [facility] ERT [id number] [facility] 2021-04-27 14:24:00 2021-04-27 15:49:00 Emergency Maggie Hamilton [facility] 1.84.114 350.1.13.10 4.2.7.2.686 [id number] [facility] 2021-04-27 11:15:00 2021-04-27 11:30:00 Laboratory Only Only, Ang Db Test Unknown, Attending Thony Johnson [facility] TOÑO?[facility] MEDICAL OFFICE BUILDING 1.84.114 350.1.13.10 4.2.7.2.686 [id number] [facility] 2021-04-27 11:15:00 2021-04-27 11:15:00 Outpatient R THONY JOHNSON [facility] [id number] [facility] 2021-04-27 00:00:00 2021-04-27 00:00:00 Orders Only Doctor Unassigned, [place] [facility] 1.2840.114 350.1.13.10 4.2.7.2.686 [id number] [facility] 2021-04-20 15:00:00 2021-04-20 15:00:00 Outpatient EDER RENEE [facility] [id number] [facility] 2021-04-13 00:00:00 2021-04-13 00:00:00 Patient Secure Msg Carmelina Evansrico Kassandra [facility] TOÑO?[facility] MEDICAL OFFICE BUILDING 1.84.114 350.1.13.10 4.2.7.2.686 [id number] [facility] 2021-04-12 00:00:00 2021-04-12 00:00:00 Telephone Claudette Evans [facility] TOÑO?[facility] MEDICAL OFFICE BUILDING 1.84.114 350.1.13.10 4.2.7.2.686 [id number] [facility] 2021-03-27 00:00:00 2021-03-27 00:00:00 Telephone Prasanna Vargas [facility] NAL BUILDING 1.84.114 350.1.13.10 4.2.7.2.686 [id number] [facility] 2021-03-24 00:00:00 2021-03-24 00:00:00 Patient Secure Msg Doctor Unassigned, [place] [facility] [id number] 350.1.13.10 4.2.7.2.686 [id number] [facility] 2021-03-23 13:30:00 2021-03-23 13:30:00 Outpatient PINO AGUIAR [facility] [id number] [facility] 2021-03-23 13:30:00 2021-03-23 13:30:00 Outpatient PINO AGUIAR [facility] [id number] [facility] 2021-03-22 09:20:00 2021-03-22 09:20:00 Outpatient R ADITYA MEEKS STRAHIL [facility] [id number] [facility] 2021-03-22 09:20:00 2021-03-22 09:20:00 Outpatient R ADITYA MEEKS STRAMOEz [facility] [id number] [facility] 2021-03-20 00:00:00 2021-03-20 00:00:00 Outpatient CLAUDETTE CEDILLO [facility] [id number] [facility] 2021-03-18 00:00:00 2021-03-18 00:00:00 [facility] MEDICAL OFF[facility] BUILD[facility] .2.840.114 350.1.13.10 4.2.7.2.686 [id number] [facility] 2021-03-16 11:16:07 2021-03-16 11:31:07 Program Research Specialist Visit Lab, Ang - Db [facility] MEDICAL OFFICE BUILDING .2.840.114 350.1.13.10 4.2.7.2.686 [id number] [facility] 2021-03-16 11:30:00 2021-03-16 11:30:00 Outpatient R CLAUDETTE EVANS [facility] [id number] [facility] 2021-03-16 11:00:00 2021-03-16 11:14:45 Outpatient R CLAUDETTE EVANS [facility] [id number] [facility] 2021-03-16 10:00:58 2021-03-16 11:14:45 Office Visit Claudette Evans [facility] LULU [facility] 1.2.840.114 350.1.13.10 4.2.7.2.686 [id number] [facility] 2021-03-16 00:00:00 2021-03-16 00:00:00 Patient Secure Msg Claudette Evans [facility] MEDICAL OFFICE BUILDING 1..840.114 350.1.13.10 4.2.7.2.686 [id number] [facility] 2021-03-02 16:15:00 2021-03-02 16:15:00 Outpatient R CRISTINACARMELINA IBRAHIMTAINABONNIE [facility] [id number] [facility] 2021-02-28 18:30:00 2021-02-28 18:30:00 Outpatient R ILEANA MEDRANO [facility] [id number] [facility] 2021-02-28 00:00:00 2021-02-28 00:00:00 [facility] 1.2.840.114 350.1.13.10 4.2.7.2.686 [id number] [facility] 2021-02-27 09:00:00 2021-02-27 09:00:00 Outpatient R AMELIA HAMMOND [facility] [id number] [facility] 2021-02-23 00:00:00 2021-02-23 00:00:00 Telephone Claudette Evans [place] [facility] Medical Office Building 1.2.840.114 350.1.13.10 4.2.7.2.686 [id number] 044 [id number] [facility] 2021-02-10 18:12:00 2021-02-10 23:39:[address] Méndez [facility] 1.2.840.114 350.1.13.10 4.2.7.2.686 [id number] [facility] 2021-02-10 00:00:00 2021-02-10 00:00:00 Patient Secure Msg Carmelina Evansdiful A [facility] TOÑO?[facility] MEDICAL OFFICE BUILDING 1.2840.114 350.1.13.10 4.2.7.2.686 [id number] 044 [id number] [facility] 2021-02-10 00:00:00 2021-02-10 00:00:00 Patient Secure Msg Branden Evansful A [facility] ROSENE?[facility] MEDICAL OFFICE BUILDING 1.2840.114 350.1.13.10 4.2.7.2.686 [id number] [id number] [facility] 2021-02-10 00:00:00 2021-02-10 00:00:00 Patient Secure Msg Branden Evansful A [facility] ANGLEDAYAMI TOÑO?[facility] MEDICAL OFFICE BUILDING 1.2840.114 350.1.13.10 4.2.7.2.686 [id number] [id number] [facility] 2021-02-10 00:00:00 2021-02-10 00:00:00 Patient Secure Msg Branden Evansful A [facility] ANGLEDAYAMI TOÑO?[facility] MEDICAL OFFICE BUILDING 1.2840.114 350.1.13.10 4.2.7.2.686 [id number] 044 [id number] [facility] 2021-02-09 13:40:00 2021-02-09 23:59:00 Hospital Encounter Branden Evansful A [facility] Toño?[facility] Medical Office Building 1.2840.114 350.1.13.10 4.2.7.2.686 [id number] [facility] 2021-02-09 13:49:05 2021-02-09 14:04:05 Program Research Specialist Visit Lab, Ang - Db Claudette Evans [facility] Toño?[facility] Medical Office Building 1.2.840.114 350.1.13.10 4.2.7.2.686 [id number] [facility] 2021-02-09 12:23:13 2021-02-09 13:47:12 Office [facility] Medical Office Building 1..840.114 350.1.13.10 4.2.7.2.686 [id number] [facility] 2021-02-09 13:00:00 2021-02-09 13:00:00 Outpatient R CLAUDETTE EVANS [facility] [id number] [facility] 2021-02-09 00:00:00 2021-02-09 00:00:00 Patient Secure Msg Doctor Unassigned, [place] [facility] 1..840.114 350.1.13.10 4.2.7.2.686 [id number] [facility] 2021-02-08 10:20:00 2021-02-08 10:20:00 Outpatient R ADITYA MEEKS STRAHIL [facility] [id number] [facility] 2021-02-07 00:00:00 2021-02-07 00:00:00 Patient Secure Msg Claudette Evans [facility] TOÑO?[facility] CLINICK[facility]andra [facility] MEDICAL OFFICE BUILDING 1.2.840.114 350.1.13.10 4.2.7.2.686 [id number] [facility] 2021-02-02 10:30:00 2021-02-02 10:30:00 Outpatient R SKYLAR GROVES [facility] [id number] [facility] 2021-02-02 00:00:00 2021-02-02 00:00:00 Telephone Claudette Evans [facility] Toño?[facility] Medical Office Building 1.2840.114 350.1.13.10 4.2.7.2.686 [id number] [facility] 2021-02-01 08:30:00 2021-02-01 08:30:00 Outpatient R BRODIE SKYLAR [facility] [id number] [facility] 2021-01-31 18:44:04 2021-01-31 19:41:26 [facility] To[facility] Medical Office Building 1.2840.114 350.1.13.10 4.2.7.2.686 [id number] [facility] 2021-01-31 19:00:00 2021-01-31 19:00:00 Outpatient R FLACO BOYD [facility] [id number] [facility] 2021-01-31 00:00:00 2021-01-31 00:00:00 Telephone Claudette Evans [facility] Toño?[facility] Medical Office Building 1.84.114 350.1.13.10 4.2.7.2.686 [id number] [id number] [facility] 2021-01-31 00:00:00 2021-01-31 00:00:00 Patient Secure Msg Claudette Evans [facility] TOÑO?[facility] MEDICAL OFFICE BUILDING 1.2840.114 350.1.13.10 4.2.7.2.686 [id number] [id number] [facility] 2021-01-30 00:00:00 2021-01-30 00:00:00 Telephone [facility] Building 1.84.114 350.1.13.10 4.2.7.2.686 [id number] [facility] 2021-01-30 00:00:00 2021-01-30 00:00:00 Patient Secure Msg Claudette Evans [facility] BREN [facility] OFFICE BUILDING ONE 1.840.114 350.1.13.10 4.2.7.2.686 [id number] [facility] 2021-01-26 14:00:00 2021-01-26 14:00:00 Outpatient R ARD SERRA [facility] [id number] [facility] 2021-01-26 00:00:00 2021-01-26 00:00:00 Patient Secure g Skylar Groves [facility] TOÑO?[facility] OFFICE BUILDING 1..840.114 350.1.13.10 4.2.7.2.686 [id number] [facility] 2021-01-25 15:00:00 2021-01-25 15:00:00 Outpatient R [facility] [id number] [facility] 2021-01-21 00:00:00 2021-01-21 00:00:00 Patient Secure g Skylar Groves [facility] TOÑO?[facility] MEDICAL OFFICE BUILDING 1..840.114 350.1.13.10 4.2.7.2.686 [id number] 044 [id number] [facility] 2021-01-20 16:51:22 2021-01-20 17:12:41 Telemedici ne Visit Skylar Groves [facility] Toño?[facility] Medical Office Building 1..840.114 350.1.13.10 4.2.7.2.686 [id number] [facility] 2021-01-20 16:30:00 2021-01-20 16:30:00 Outpatient R SKYLAR GROVES [facility] [id number] [facility] 2021-01-19 10:15:00 2021-01-19 10:15:00 Outpatient R KAYLEY GARCÍA [facility] [id number] [facility] 2021-01-14 00:00:00 2021-01-14 00:00:00 Case Management Kassandra Robledo [facility] 1.840.114 350.1.13.10 4.2.7.2.686 [id number] [facility] 2021-01-14 00:00:00 2021-01-14 00:00:00 Patient Secure Msg Doctor Unassigned, [place] [facility] 1.840.114 350.1.13.10 4.2.7.2.686 [id number] [facility] 2021-01-12 16:10:00 2021-01-12 19:45:[address] [facility] 1.840.114 350.1.13.10 4.2.7.2.686 [id number] [facility] 2021-01-12 15:20:00 2021-01-12 15:20:00 Outpatient ILEANA CASE [facility] [id number] [facility] 2021-01-12 14:46:57 2021-01-12 15:06:57 Urgent Care Thony Johnson [facility] Medical Office Building 1..840.114 350.1.13.10 4.2.7.2.686 [id number] [facility] 2020-12-26 15:30:00 2020-12-26 16:13:32 Outpatient RAD MATAMOROS [facility] [id number] [facility] 2020-12-26 15:30:00 2020-12-26 16:13:32 Office Visit Rad Serra [facility] PROFESSIO NAL BUILDING 1..840.114 350.1.13.10 4.2.7.2.686 [id number] [facility] 2020-12-26 15:00:32 2020-12-26 16:13:32 Office Visit Rad Serra [facility] Building 1.2.840.114 350.1.13.10 4.2.7.2.686 [id number] [facility] 2020-12-26 15:30:00 2020-12-26 15:30:00 Outpatient R RAD SERRA [facility] [id number] [facility] 2020-11-29 00:00:00 2020-11-29 00:00:00 Patient Secure Msg Rad Serra [facility] BUILDING 1.2.840.114 350.1.13.10 4.2.7.2.686 [id number] [facility] 2020-11-22 11:00:00 2020-11-22 11:00:00 Outpatient R CELINA MIXON [facility] [id number] [facility] 2020-11-10 18:42:46 2020-11-10 19:53:43 Urgent Care Dennis [facility] Office Building One 1.2.840.114 350.1.13.10 4.2.7.2.686 [id number] 2020-11-10 19:00:00 2020-11-10 19:00:00 Outpatient R [facility] [id number] [facility] 2020-10-31 18:52:00 2020-10-31 22:15:[address] Méndez [facility] 1.2.840.114 350.1.13.10 4.2.7.2.686 [id number] 2020-10-31 19:00:00 2020-10-31 19:00:00 Outpatient CARI TUTTLE [facility] [id number] [facility] 2020-10-31 00:00:00 2020-10-31 00:00:00 Orders Only Doctor Unassigned, [place] [facility] 1.2.840.114 350.1.13.10 4.2.7.2.686 [id number] 2020-10-20 14:02:00 2020-10-20 17:13:00 Emergency Dev Kaycee Su [facility] 1.2.840.114 350.1.13.10 4.2.7.2.686 [id number] 2020-10-18 00:00:00 2020-10-18 00:00:00 Patient Secure Msg [facility] 1.2.840.114 350.1.13.10 4.2.7.2.686 [id number] 134 [id number] [facility] 2020-10-14 10:00:00 2020-10-14 23:59:00 Hospital Encounter Prasanna Vargas [facility] 1.2.840.114 350.1.13.10 4.2.7.2.686 [id number] 2020-10-14 13:30:00 2020-10-14 13:30:00 Outpatient CELINA STONE [facility] [id number] [facility] 2020-10-11 00:00:00 2020-10-11 00:00:00 Patient Secure Msg Prasanna Vargas [facility] PROFESS[facility] NAL BUILDING 1.2.840.114 350.1.13.10 4.2.7.2.686 [id number] [facility] 2020-10-11 00:00:00 2020-10-11 00:00:00 Patient Secure Msg Prasanna Vargas [facility] BUILDING 1.2.840.114 350.1.13.10 4.2.7.2.686 [id number] [facility] 2020-10-09 12:00:00 2020-10-09 15:57:[address] [facility] 1.2.840.114 350.1.13.10 4.2.7.2.686 [id number] 2020-10-07 00:00:00 2020-10-07 00:00:00 Patient Secure Msg Prasanna Vargas [facility] BUILDING 1.2.840.114 350.1.13.10 4.2.7.2.686 [id number] 134 [id number] [facility] 2020-10-07 00:00:00 2020-10-07 00:00:00 Patient Secure Msg Prasanna Vargas [facility] BUILDING 1.2.840.114 350.1.13.10 4.2.7.2.686 [id number] [facility] 2020-10-07 00:00:00 2020-10-07 00:00:00 Patient Secure Msg Prasanna Vargas [facility] BUILDING 1.2.840.114 350.1.13.10 4.2.7.2.686 [id number] 134 [id number] [facility] 2020-10-07 00:00:00 2020-10-07 00:00:00 Patient Secure Msg Prasanna Vargas [facility] BUILDING 1.2.840.114 350.1.13.10 4.2.7.2.686 [id number] [facility] 2020-10-07 00:00:00 2020-10-07 00:00:00 Patient Secure Msg Prasanna Vargas [facility] BUILDING 1.2.840.114 350.1.13.10 4.2.7.2.686 [id number] [facility] 2020-10-07 00:00:00 2020-10-07 00:00:00 Patient Secure Msg Prasanna Vargas [facility] BUILDING 1.2.840.114 350.1.13.10 4.2.7.2.686 [id number] [facility] 2020-10-07 00:00:00 2020-10-07 00:00:00 Patient Secure Msg Prasanna Vargas [facility] BUILDING 1.2.840.114 350.1.13.10 4.2.7.2.686 [id number] [facility] 2020-10-06 08:53:00 2020-10-06 09:46:44 Office Visit Prasanna Vargas [facility] 1.2.840.114 350.1.13.10 4.2.7.2.686 [id number] 2020-10-06 09:30:00 2020-10-06 09:30:00 Outpatient PRASANNA LOOMIS [facility] [id number] [facility] 2020-10-04 14:00:00 2020-10-04 14:00:00 Outpatient CELINA STONE [facility] [id number] [facility] 2020-09-30 10:30:00 2020-09-30 10:30:00 Outpatient CELINA STONE [facility] [id number] [facility] 2020-09-29 13:45:00 2020-09-29 13:45:00 Outpatient PREET KRISHNA [facility] [id number] [facility] 2020-09-06 15:30:00 2020-09-06 15:30:00 Outpatient PRASANNA LOOMIS [facility] [id number] [facility] 2020-09-05 00:00:00 2020-09-05 00:00:00 Patient Secure Prasanna Kang [facility] 1.2.840.114 350.1.13.10 4.2.7.2.686 [id number] [facility] 2020-09-02 15:40:00 2020-09-02 15:40:00 Outpatient DARRION QUIROZ HOWARD [facility] [id number] [facility] 2020-08-31 10:30:00 2020-08-31 10:30:00 Outpatient RAD MATAMOROS [facility] [id number] [facility] 2020-08-31 00:00:00 2020-08-31 00:00:00 Patient Secure Prasanna Kang [facility] 1.2.840.114 350.1.13.10 4.2.7.2.686 [id number] [facility] 2020-08-18 09:30:00 2020-08-18 09:30:00 Outpatient PRASANNA LOOMIS [facility] [id number] [facility] 2020-08-11 13:30:00 2020-08-11 13:30:00 Outpatient PRASANNA LOOMIS [facility] [id number] [facility] 2020-08-04 14:00:00 2020-08-04 14:00:00 Outpatient EDER RENEE [facility] [id number] [facility] 2020-07-28 10:30:00 2020-07-28 10:30:00 Outpatient RAD MATAMOROS [facility] [id number] [facility] 2020-06-30 16:15:00 2020-06-30 16:15:00 Outpatient CLAUDETTE CEDILLO [facility] [id number] [facility] 2020-06-17 15:00:00 2020-06-17 15:00:00 Outpatient DARRION QUIROZ HOWARD [facility] [id number] [facility] 2020-06-16 15:30:00 2020-06-16 15:30:00 Outpatient R SERRARAD GRACIA [facility] [id number] [facility] 2020-06-09 12:30:00 2020-06-09 12:30:00 Outpatient R NI DISLA [facility] [id number] [facility] 2020-06-08 08:00:00 2020-06-08 08:00:00 Outpatient R NI DISLA [facility] [id number] [facility] 2020-06-02 09:00:00 2020-06-02 09:00:00 Outpatient R REENA SERRAZOHRA [facility] [id number] [facility] 2020-05-28 10:00:00 2020-05-28 10:00:00 Outpatient R CARI KAUR [facility] [id number] [facility] 2020-05-26 00:00:00 2020-05-26 00:00:00 Patient Secure Msg Claudette Evans [facility] BUILDING ONE 1.2.840.114 350.1.13.10 4.2.7.2.686 [id number] [facility] 2020-05-24 10:00:00 2020-05-24 10:00:00 Outpatient R NI DISLA [facility] [id number] [facility] 2020-05-24 00:00:00 2020-05-24 00:00:00 Patient Secure Msg Doctor Unassigned, [place] [facility] BUILDING 1.2.840.114 350.1.13.10 4.2.7.2.686 [id number] [facility] 2020-05-19 16:30:00 2020-05-19 16:30:00 Outpatient R JACK OSITO [facility] [id number] [facility] 2020-05-17 13:00:00 2020-05-17 13:00:00 Outpatient DARRION QUIROZ HOWARD [facility] [id number] [facility] 2020-05-16 16:00:00 2020-05-16 16:00:00 Outpatient Farzana CRISTINA CARMELINARICO [facility] [id number] [facility] 2020-05-09 00:00:00 2020-05-09 00:00:00 Patient Secure Msg Carmelina Evanstainabonnie [facility] ONE .840.114 350.1.13.10 4.2.7.2.686 [id number] [facility] 2020-05-08 10:24:00 2020-05-08 13:03:00 Emergency X AN GARVINALA [facility] [id number] [facility] 2020-05-03 15:00:00 2020-05-03 15:00:00 Outpatient R CRISTINACARMELINABONNIE [facility] [id number] [facility] 2020-04-30 11:14:00 2020-05-01 15:50:00 Outpatient X RODRIGUEZ HOFF [facility] [place] [id number] [facility] 2020-04-30 10:20:00 2020-04-30 10:20:00 Outpatient R ROSALES SHAY [facility] [id number] [facility] 2020-04-30 10:15:00 2020-04-30 10:15:00 Outpatient R ROSALES SHAY [facility] [id number] [facility] 2020-04-29 00:00:00 2020-04-29 00:00:00 Patient Secure sOito Rodrigues [facility] .840.114 350.1.13.10 4.2.7.2.686 [id number] [facility] [id number] [facility] 2020-04-28 14:00:00 2020-04-28 14:00:00 Outpatient OSITO AMARO [facility] [id number] [facility] 2020-04-25 16:15:00 2020-04-25 16:15:00 Outpatient R CRISTINA CARMELINARICO [facility] [id number] [facility] 2020-04-22 00:00:00 2020-04-22 00:00:00 Patient [facility] 1.2.840.114 350.1.13.10 4.2.7.2.686 [id number] [facility] 2020-04-18 10:00:00 2020-04-18 10:00:00 Outpatient OSITO AMARO [facility] [id number] [facility] 2020-04-15 10:30:00 2020-04-15 10:30:00 Outpatient RAD MATAMOROS [facility] [id number] [facility] 2020-04-12 13:38:00 2020-04-13 16:25:00 [facility] [id number] [facility] 2020-03-17 16:15:00 2020-03-17 16:15:00 Outpatient TETO BRANTLEY [facility] [id number] [facility] 2020-03-04 00:00:00 2020-03-04 00:00:00 Osito Barnes [facility] 1.2.840.114 350.1.13.10 4.2.7.2.686 [id number] 2020-02-25 16:00:00 2020-02-25 16:00:00 Outpatient OSITO AMARO [facility] [id number] [facility] 2020 14:00:00 2020 14:00:00 [id number] 2020-02-08 10:30:00 2020-02-08 10:30:00 Outpatient R PRASANNA VARGAS [facility] [id number] [facility] 2020-02-05 00:00:00 2020-02-05 00:00:00 Patient Secure Msg Prasanna Vargas [facility] BUILDING 1.2.840.114 350.1.13.10 4.2.7.2.686 [id number] [facility] 2020-02-04 13:30:00 2020-02-04 13:30:00 Outpatient R JACK, OSITO [facility] [id number] [facility] 2020-01-23 10:15:00 2020-01-23 10:15:00 Outpatient R [facility] [id number] [facility] 2020-01-21 13:00:00 2020-01-21 13:00:00 Outpatient R JACK, OSITO [facility] [id number] [facility] 2020-01-14 16:00:00 2020-01-14 16:00:00 Outpatient R JACK OSITO [facility] [id number] [facility] 2020-01-05 13:45:00 2020-01-05 13:45:00 Outpatient R PRASANNA VARGAS [facility] [id number] [facility] 2020-01-05 00:00:00 2020-01-05 00:00:00 Patient Secure Prasanna Kang [facility] 1.2.840.114 350.1.13.10 4.2.7.2.686 [id number] [facility] 2019-12-03 10:30:00 2019-12-03 10:30:00 Outpatient R CRICKET TAYLOR [facility] [id number] [facility] 2019-11-27 11:00:00 2019-11-27 11:00:00 Outpatient R TETO CARNES [facility] [id number] [facility] 2019-11-26 00:00:00 2019-11-26 00:00:00 Patient Secure Msg Doctor Unassigned, [place] [facility] 1.2.840.114 350.1.13.10 4.2.7.2.686 [id number] [facility] 2019-11-25 08:00:00 2019-11-25 08:00:00 Outpatient TETO BRANTLEY [facility] [id number] [facility] 2019-11-23 00:00:00 2019-11-23 00:00:00 Patient Secure Msg Doctor Unassigned, [place] [facility] 1.2.840.114 350.1.13.10 4.2.7.2.686 [id number] [facility] 2019-11-18 10:00:00 2019-11-18 10:00:00 Outpatient TETO BRANTLEY [facility] [id number] [facility] 2019-11-17 00:00:00 2019-11-17 00:00:00 Patient Secure Msg Doctor Unassigned, [place] [facility] 1.2.840.114 350.1.13.10 4.2.7.2.686 [id number] [facility] 2019-11-13 00:00:2019-11-13 00:00:00 Patient Secure Msg Prasanna Vargas Jm [facility] 1.2.840.114 350.1.13.10 4.2.7.2.686 [id number] [facility] 2019-09-02 11:00:00 2019-09-02 11:00:00 Outpatient CRICKET FRYE [facility] [id number] [facility] 2019-08-14 10:15:00 2019-08-14 10:15:00 Outpatient TETO BRANTLEY [facility] [id number] [facility] 2019-08-13 11:00:00 2019-08-13 11:00:00 Outpatient R CRICKET TAYLOR [facility] [id number] [facility] 2019-08-12 09:00:00 2019-08-12 09:00:00 Outpatient R [facility] [id number] [facility] 2019-07-20 16:06:00 2019-07-20 16:06:00 Outpatient P PRASANNA VARGAS [facility] [id number] [facility] 2019-07-20 08:15:00 2019-07-20 08:15:00 Outpatient R CRICKET TAYLOR [facility] [id number] [facility] 2019-07-13 08:00:00 2019-07-13 08:00:00 Outpatient R CRICKET TAYLOR [facility] [id number] [facility] 2019-07-12 13:39:00 2019-07-12 13:39:00 Outpatient P PRASANNA VARGAS [facility] [id number] [facility] 2019-07-06 13:00:00 2019-07-06 13:00:00 [facility] [id number] 2019-06-13 10:40:46 2019-06-13 12:35:00 Emergency X SARAHI AVILA [facility] [id number] [facility] 2019-05-13 23:07:00 2019-05-14 09:15:00 Outpatient P PRASANNA VARGAS [facility] [id number] [facility] Results Test Description Test Time Test Comments Results Result Co mments [facility] 16:39:24* Test Item Value Reference Range Interpretation Comme nts LIPASE (test code = 6041234352) 40 U/L 0-220 Lab Interpretation (test cod e = 33888-8) Normal [facility] W [id number] 16:27:28EXAM: CT ABDOMEN PELVIS W CONTRAST HISTORY: [...] isseen within the right gluteal soft tissue.[facility] CBC WITH [id number] 16:14:18* Test Item Value Reference Range Interpretation Comme nts WBC (test code = 6690-2) 6.32 See_Comment [Automated [employer]ient] The system which generated this result transmitted reference range: 4.30 - 11.10 10*3/?L. The reference range was not used to interpret this result as normal/abnormal. RBC (test code = 789-8) 4.61 See_Comment [Automated [employer]apient] The system which generated this result transmitted [...] 34.1 g/dL 31.6-35.1 RDW-SD (test code = 36377-7) 42.0 fL 39.0-49.9 RDW-CV (test code = 788-0) 13.0 % 12.0-15.5 PLT (test code = 777-3) 369 See_Comment H [Automated [employer]] The system which generated this result transmitted reference range: 166 - 358 10*3/?L. The reference range was not used to interpret this result as normal/abnormal. MPV (test code = 26944-7) 9.9 fL 9.5-12.9 NRBC/100 WBC (test code = 2652437644) 0.0 See_Comment [Automated [employer] ssage] The system which generated this result transmitted reference range: 0.0 - 10.0 /100 WBCs. The reference range was not used to interpret this result as normal/abnormal. NRBC x10^3 (test code = 5143309801) See_Comment [Automated [employer]] The system which generated this result transmitted reference range: 10*3/?L. The reference range was not used to interpret this result as normal/abnormal. GRAN MAT (NEUT) % (test code = 770-8) 64.8 % IMM GRAN % (test code = 9798877138) 0.50 % LYMPH % (test code = 736-9) 25.3 % MONO % (test code = 5905-5) 4.1 % EOS % (test code = 713-8) 4.7 % BASO % (test code = 706-2) 0.6 % GRAN MAT x10^3(ANC) (test code = 5925539189) 4.09 10*3/uL 1.88-7.09 IMM GRAN x10^3 (test code = 2361025530) 0.03 10*3/uL 0.00-0.06 LYMPH x10^3 (test code = 731-0) 1.60 10*3/uL 1.32-3.29 MONO x10^3 (test code = 742-7) 0.26 10*3/uL 0.33-0.92 L EOS x10^3 (test code = 711-2) 0.30 10*3/uL 0.03-0.39 BASO x10^3 (test code = 704-7) 0.04 10*3/uL 0.01-0.07 Lab Interpretation (test code = 98713-6) [facility] [id number] 15:31:00* Test Item Value Reference Range Interpretation Comme nts POCT PREG (test code = 1605) Negative On board controls acceptable with C Line (test code = 3574) Yes POCT PREG LOT # (test code = 3575) [id number] POCT PREG TEST DATE ( test code = 3576) 2024-07-21 Lab Interpretation (test cod e = 59549-3) Normal [facility] WITH [id number] 04:28:47* Test Item Value Reference Range Interpretation Comme nts WBC (test code = 6690-2) 5.45 See_Comment [Automated [employer]] The system which generated this result transmitted reference range: 4.30 - 11.10 10*3/?L. The reference range was not used to interpret this result as normal/abnormal. RBC (test code = 789-8) 4.59 See_Comment [Automated [employer]] The system which generated this result [...] 34.0 g/dL 31.6-35.1 RDW-SD (test code = 08981-7) 40.3 fL 39.0-49.9 RDW-CV (test code = 788-0) 13.1 % 12.0-15.5 PLT (test code = 777-3) 307 See_Comment [Automated messa ge] The system which generated this result transmitted reference range: 166 - 358 10*3/?L. The reference range was not used to interpret this result as normal/abnormal. MPV (test code = 41609-4) 11.0 fL 9.5-12.9 NRBC/100 WBC (test code = 1622295061) 0.0 See_Comment [Automated me ssage] The system which generated this result transmitted reference range: 0.0 - 10.0 /100 WBCs. The reference range was not used to interpret this result as normal/abnormal. NRBC x10^3 (test code = 7932227596) See_Comment [Automated messa ge] The system which generated this result transmitted reference range: 10*3/?L. The reference range was not used to interpret this result as normal/abnormal. GRAN MAT (NEUT) % (test code = 770-8) 52.0 % IMM GRAN % (test code = 2152627334) 0.20 % LYMPH % (test code = 736-9) 38.0 % MONO % (test code = 5905-5) 4.6 % EOS % (test code = 713-8) 4.6 % BASO % (test code = 706-2) 0.6 % GRAN MAT x10^3(ANC) (test code = 0030741080) 2.84 10*3/uL 1.88-7.09 IMM GRAN x10^3 (test code = 9440122175) 0.00-0.06 LYMPH x10^3 (test code = 731-0) 2.07 10*3/uL 1.32-3.29 MONO x10^3 (test code = 742-7) 0.25 10*3/uL 0.33-0.92 L EOS x10^3 (test code = 711-2) 0.25 10*3/uL 0.03-0.39 BASO x10^3 (test code = 704-7) 0.03 10*3/uL 0.01-0.07 Lab Interpretation (test code = 32820-2) [facility]normal [facility]OL[facility] (19650)2023-01-12 04:12:43* Test Item Value Reference Range Interpretation Comme nts NA (test code = 8613233222) 137 mmol/L 135-145 K (test code = 2454832085) 3.4 mmol/L 3.5-5.0 L CL (test code = 8375064568) 104 mmol/L 98-108 CO2 TOTAL (test code = 5396902009) 24 mmol/L 23-31 AGAP (test code = 3658503732) 9 2-16 BUN (test code = 9312473472) 2 mg/dL 7-23 L GLUCOSE (test code = 4850878565) 92 mg/dL 70-110 CREATININE (test code = 4673540134) 0.80 mg/dL 0.50-1.04 TOTAL BILI (test code = 4438921412) 0.4 mg/dL 0.1-1.1 CALCIUM (test code = 0339554919) 8.4 mg/dL 8.6-10.6 L T PROTEIN (test code = 3532122227) 6.3 g/dL 6.3-8.2 ALBUMIN (test code = 1379050791) 3.7 g/dL 3.5-5.0 ALK PHOS (test code = 9291985662) 87 U/L 34-122 ALTv (test code = 1742-6) 27 U/L 5-35 AST(SGOT) (test code = 7103091575) 33 U/L 13-40 eGFR (test code = 3589080089) 86.0 mL/min/1.73m2 WESLEY (test code = WESLEY) [...] imaging tests). Lab Interpretation (test code = 78952-9) Abnormal [facility]. METABOLIC PANEL (77629)2023-01-12 04:12:43* Test Item Value Reference Range Interpretation Comme nts NA (test code = 7808793056) 137 mmol/L 135-145 K (test code = 9297124048) 3.4 mmol/L 3.5-5.0 L CL (test code = 0111854508) 104 mmol/L 98-108 CO2 TOTAL (test code = 5122890151) 24 mmol/L 23-31 AGAP (test code = 6895172317) 9 2-16 BUN (test code = 4987286704) 2 mg/dL 7-23 L GLUCOSE (test code = 7710624308) 92 mg/dL 70-110 CREATININE (test code = 8964097206) 0.80 mg/dL 0.50-1.04 TOTAL BILI (test code = 3091065837) 0.4 mg/dL 0.1-1.1 CALCIUM (test code = 9866983296) 8.4 mg/dL 8.6-10.6 L T PROTEIN (test code = 2242113648) 6.3 g/dL 6.3-8.2 ALBUMIN (test code = 6237345954) 3.7 g/dL 3.5-5.0 ALK PHOS (test code = 7976427043) 87 U/L 34-122 ALTv (test code = 1742-6) 27 U/L 5-35 AST(SGOT) (test code = 2658176094) 33 U/L 13-40 eGFR (test code = 1553011996) 86.0 mL/min/1.73m2 WESLEY (test code = WESLEY) [...] imaging tests). Lab Interpretation (test code = 36175-2) [facility]07:04 BETA HCG<2.39Non- female and male patients: <5 mIU/mL01/11/2023 11:07 PM [facility] Gestational Age ?Range (mIU/mL) 1-10 ?Weeks ?[phone] Weeks ?97645-48871572-29 Weeks ?8907-32349209-20 Weeks ?1531-372990 Biotin has been reported to cause a negative bias, interpret results relative to patient's use of biotin. Gestational Age ?Range (mIU/mL) 1-10 ?Weeks ?15-66744034-54 Weeks ?99287-78465194-37 Weeks ?6955-56645728-66 Weeks?1531-479471 Biotin has been reported to cause a negative bias, interpret results relative to patient's use of biotin. Gestational Age ?Range (mIU/mL) 1-10 ?Weeks ?06-43245249-02 Weeks ?30543-87479901-34 Weeks ?8487-36433699-61 Weeks ?1531-906764 Biotin has been reported to cause a negative bias, interpretresults relative to patient's use of biotin.[facility] 04:07:04BETA HCG<2.39Non- female and male patients: <5 mIU/mL01/11/2023 11:07 PM [facility] Gestational Age ?Range (mIU/mL) 1-10 ?Weeks ?45-02784760-13 Weeks ?66570-21875012-53 Weeks ?7851-23618963-25 Weeks ?1531-277420 Biotin has been reported to cause a negative bias, interpret results relative topatient's use of biotin. Gestational Age ?Range (mIU/mL) 1-10 ?Weeks ?39-38176264-03 Weeks ?25106-06950334-07 Weeks ?4679-00378981-34 Weeks?1531-988390 Biotin has been reported to cause a negative bias, interpret results relative to patient's use of biotin. Gestational Age ?Range (mIU/mL) 1-10 ?Weeks ?97-35663826-56 Weeks ?38316-61759092-02 Weeks ?2157-15432598-08 Weeks ?1531-775845 Biotin has been reported to cause a negative bias, interpretresults relative to patient's use of biotin.[facility] 2023-01-12 03:22:58* Test Item Value Reference Range Interpretation Comme nts LIPASE (test code = 7509457921) 41 U/L 0-220 Lab Interpretation (test cod e = 12781-6) Normal [facility]2023-09-02 03:22:58* Test Item Value Reference Range Interpretation Comme nts LIPASE (test code = 5534368348) 41 U/L 0-220 Lab Interpretation (test cod e = 68813-4) Normal [facility] [id number] 03:02:00* Test Item Value Reference Range Interpretation Comme nts POCT PREG (test code = 1605) Negative On board controls acceptable with C Line (test code = 3574) Yes POCT PREG LOT # (test code = 3575) [id number] POCT PREG TEST DATE ( test code = 3576) 05/15/2024 Lab Interpretation (test cod e = 17105-0) Normal [facility] [id number] 03:02:00* Test Item Value Reference Range Interpretation Comme nts POCT PREG (test code = 1605) Negative On board controls acceptable with C Line (test code = 3574) Yes POCT PREG LOT # (test code = 3575) [id number] POCT PREG TEST DATE ( test code = 3576) 05/15/2024 Lab Interpretation (test cod e = 59307-4) Normal [facility], [id number] 00:23:34* Test Item Value Reference Range Interpretation Comme nts PREG SERUM (test code = 5773594798) Negative WESLEY (test code = WESLEY) Less than 10 IU/L. ?If low titer or ectopic is suspected, resubmit specimen in 48-72 hours. [facility]. METABOLIC PANEL (53914)2022-07-31 23:58:12* Test Item Value Reference Range Interpretation Comme nts NA (test code = 2678247099) 140 mmol/L 135-145 K (test code = 5665715386) 3.6 mmol/L 3.5-5.0 CL (test code = 6170456636) 106 mmol/L 98-108 CO2 TOTAL (test code = 8802100394) 21 mmol/L 23-31 L AGAP (test code = 0927192545) 13 2-16 BUN (test code = 0914270407) 8 mg/dL 7-23 GLUCOSE (test code = 0018121395) 90 mg/dL 70-110 CREATININE (test code = 1231559414) 0.90 mg/dL 0.50-1.04 TOTAL BILI (test code = 9974492665) 0.5 mg/dL 0.1-1.1 CALCIUM (test code = 9231616436) 9.0 mg/dL 8.6-10.6 T PROTEIN (test code = 5358780872) 7.8 g/dL 6.3-8.2 ALBUMIN (test code = 3218249892) 4.6 g/dL 3.5-5.0 ALK PHOS (test code = 1320669429) 63 U/L 34-122 ALTv (test code = 1742-6) 23 U/L 5-35 AST(SGOT) (test code = 4234378603) 27 U/L 13-40 eGFR (test code = 3047387601) 75.1 mL/min/1.73m2 WESLEY (test code = WESLEY) [...] imaging tests). Lab Interpretation (test code = 28819-7) [facility]normal [facility] 23:57:32* Test Item Value Reference Range Interpretation Comme nts LIPASE (test code = 0549757006) 55 U/L 0-220 Lab Interpretation (test cod e = 12273-2) Normal [facility] WITH [id number] 23:47:31* Test Item Value Reference Range Interpretation Comme nts WBC (test code = 6690-2) 5.64 See_Comment [Automated [employer]] The system which generated this result transmitted reference range: 4.30 - 11.10 10*3/?L. The reference range was not used to interpret this result as normal/abnormal. RBC (test code = 789-8) 4.51 See_Comment [Automated [employer]] The system which generated this result transmitted [...] 32.6 g/dL 31.6-35.1 RDW-SD (test code = 14876-1) 42.5 fL 39.0-49.9 RDW-CV (test code = 788-0) 13.0 % 12.0-15.5 PLT (test code = 777-3) 339 See_Comment [Automated messa ge] The system which generated this result transmitted reference range: 166 - 358 10*3/?L. The reference range was not used to interpret this result as normal/abnormal. MPV (test code = 08960-1) 9.4 fL 9.5-12.9 L NRBC/100 WBC (test code = 9039917239) 0.0 See_Comment [Automated [employer]] The system which generated this result transmitted reference range: 0.0 - 10.0 /100 WBCs. The reference range was not used to interpret this result as normal/abnormal. NRBC x10^3 (test code = 5133316809) See_Comment [Automated [employer]] The system which generated this result transmitted reference range: 10*3/?L. The reference range was not used to interpret this result as normal/abnormal. GRAN MAT (NEUT) % (test code = 770-8) 51.2 % IMM GRAN % (test code = 5989431269) 0.20 % LYMPH % (test code = 736-9) 36.5 % MONO % (test code = 5905-5) 5.7 % EOS % (test code = 713-8) 5.9 % BASO % (test code = 706-2) 0.5 % GRAN MAT x10^3(ANC) (test code = 0619659265) 2.89 10*3/uL 1.88-7.09 IMM GRAN x10^3 (test code = 2645303276) 0.00-0.06 LYMPH x10^3 (test code = 731-0) 2.06 10*3/uL 1.32-3.29 MONO x10^3 (test code = 742-7) 0.32 10*3/uL 0.33-0.92 L EOS x10^3 (test code = 711-2) 0.33 10*3/uL 0.03-0.39 BASO x10^3 (test code = 704-7) 0.03 10*3/uL 0.01-0.07 Lab Interpretation (test code = 80694-0) Abnormal [facility] MOLECULAR [id number] 16:14:38* Test Item Value Reference Range Interpretation Comme nts POCT Molecular Strep (test c ode = 31960-4) Negative Negative Lab Interpretation (test cod e = 94655-0) Normal [facility]. METABOLIC PANEL (28947)2022-05-05 19:35:37* Test Item Value Reference Range Interpretation Comme nts NA (test code = 1973910202) 139 mmol/L 135-145 K (test code = 0235721571) 4.4 mmol/L 3.5-5.0 CL (test code = 7029057531) 104 mmol/L 98-108 CO2 TOTAL (test code = 1297800363) 22 mmol/L 23-31 L AGAP (test code = 2443266614) 2-16 BUN (test code = 0891064884) 11 mg/dL 7-23 GLUCOSE (test code = 5688058191) 95 mg/dL 70-110 CREATININE (test code = 7367992008) 0.71 mg/dL 0.50-1.04 TOTAL BILI (test code = 2703767671) 0.4 mg/dL 0.1-1.1 CALCIUM (test code = 4979717031) 9.1 mg/dL 8.6-10.6 T PROTEIN (test code = 4658043674) 7.9 g/dL 6.3-8.2 ALBUMIN (test code = 8082060296) 4.7 g/dL 3.5-5.0 ALK PHOS (test code = 2934131917) 114 U/L 34-122 ALTv (test code = 1742-6) 21 U/L 5-35 AST(SGOT) (test code = 3542707283) 21 U/L 13-40 eGFR (test code = 9916507095) mL/min/1.73m2 WESLEY (test code = WESLEY) Association [...] imaging tests). Lab Interpretation (test code = 99475-6) Abnormal [facility] WITH [id number] 19:25:37* Test Item Value Reference Range Interpretation Comme nts WBC (test code = 6690-2) See_Comment [Automated [employer]] The system which generated this result transmitted reference range: 4.30 - 11.10 10*3/?L. The reference range was not used to interpret this result as normal/abnormal. RBC (test code = 789-8) See_Comment [Automated [employer]] The system which generated this result transmitted [...] 32.9 g/dL 31.6-35.1 RDW-SD (test code = 15812-0) 41.7 fL 39.0-49.9 RDW-CV (test code = 788-0) 12.7 % 12.0-15.5 PLT (test code = 777-3) See_Comment H [Automated [employer]] The system which generated this result transmitted reference range: 166 - 358 10*3/?L. The reference range was not used to interpret this result as normal/abnormal. MPV (test code = 51765-9) 8.8 fL 9.5-12.9 L NRBC/100 WBC (test code = 6839258432) See_Comment [Automated [employer] ssage] The system which generated this result transmitted reference range: 0.0 - 10.0 /100 WBCs. The reference range was not used to interpret this result as normal/abnormal. NRBC x10^3 (test code = 5147234898) See_Comment [Automated [employer]] The system which generated this result transmitted reference range: 10*3/?L. The reference range was not used to interpret this result as normal/abnormal. GRAN MAT (NEUT) % (test code = 770-8) 56.1 % IMM GRAN % (test code = 1961093914) 0.40 % LYMPH % (test code = 736-9) 29.9 % MONO % (test code = 5905-5) 5.4 % EOS % (test code = 713-8) 7.8 % BASO % (test code = 706-2) 0.4 % GRAN MAT x10^3(ANC) (test code = 5301325039) 3.75 10*3/uL 1.88-7.09 IMM GRAN x10^3 (test code = 6001307773) 0.03 10*3/uL 0.00-0.06 LYMPH x10^3 (test code = 731-0) 2.00 10*3/uL 1.32-3.29 MONO x10^3 (test code = 742-7) 0.36 10*3/uL 0.33-0.92 EOS x10^3 (test code = 711-2) 0.52 10*3/uL 0.03-0.39 H BASO x10^3 (test code = 704-7) 0.03 10*3/uL 0.01-0.07 Lab Interpretation (test code = 51987-7) [facility]normal [facility] [id number] 19:00:00* Test Item Value Reference Range Interpretation Comme nts POCT PREG (test code = 1605) negative On board controls acceptable with C Line (test code = 3574) present POCT PREG LOT # (test code = 3575) [id number] POCT PREG TEST DATE ( test code = 3576) 08-11-2023 Lab Interpretation (test cod e = 69914-0) Normal [facility] WITH [id number] 15:21:11* Test Item Value Reference Range Interpretation Comme nts WBC (test code = 6690-2) See_Comment [Automated [employer]] The system which generated this result transmitted reference range: 4.30 - 11.10 10*3/?L. The reference range was not used to interpret this result as normal/abnormal. RBC (test code = 789-8) See_Comment [Automated [employer]] The system which generated this result [...] 33.0 g/dL 31.6-35.1 RDW-SD (test code = 31535-3) 42.6 fL 39.0-49.9 RDW-CV (test code = 788-0) 12.9 % 12.0-15.5 PLT (test code = 777-3) See_Comment H [Automated messa ge] The system which generated this result transmitted reference range: 166 - 358 10*3/?L. The reference range was not used to interpret this result as normal/abnormal. MPV (test code = 56470-9) 9.1 fL 9.5-12.9 L NRBC/100 WBC (test code = 3095367430) See_Comment [Automated [employer] ssage] The system which generated this result transmitted reference range: 0.0 - 10.0 /100 WBCs. The reference range was not used to interpret this result as normal/abnormal. NRBC x10^3 (test code = 3296250526) See_Comment [Automated [employer]] The system which generated this result transmitted reference range: 10*3/?L. The reference range was not used to interpret this result as normal/abnormal. GRAN MAT (NEUT) % (test code = 770-8) 56.8 % IMM GRAN % (test code = 4671765049) 0.30 % LYMPH % (test code = 736-9) 29.5 % MONO % (test code = 5905-5) 4.3 % EOS % (test code = 713-8) 8.3 % BASO % (test code = 706-2) 0.8 % GRAN MAT x10^3(ANC) (test code = 0147100417) 3.57 10*3/uL 1.88-7.09 IMM GRAN x10^3 (test code = 1331010659) 0.00-0.06 LYMPH x10^3 (test code = 731-0) 1.85 10*3/uL 1.32-3.29 MONO x10^3 (test code = 742-7) 0.27 10*3/uL 0.33-0.92 L EOS x10^3 (test code = 711-2) 0.52 10*3/uL 0.03-0.39 H BASO x10^3 (test code = 704-7) 0.05 10*3/uL 0.01-0.07 Lab Interpretation (test code = 65248-5) [facility]normal [facility] (60334)2022-04-26 15:12:13* Test Item Value Reference Range Interpretation Comme nts NA (test code = 7904775353) 141 mmol/L 135-145 K (test code = 8671286976) 3.4 mmol/L 3.5-5.0 L CL (test code = 0619579694) 104 mmol/L 98-108 CO2 TOTAL (test code = 3060465821) 23 mmol/L 23-31 AGAP (test code = 9894447830) 2-16 BUN (test code = 5105557316) 9 mg/dL 7-23 GLUCOSE (test code = 1680146494) 101 mg/dL 70-110 CREATININE (test code = 1665771713) 0.82 mg/dL 0.50-1.04 TOTAL BILI (test code = 3668310756) 0.7 mg/dL 0.1-1.1 CALCIUM (test code = 4987512410) 9.3 mg/dL 8.6-10.6 T PROTEIN (test code = 3336735122) 8.1 g/dL 6.3-8.2 ALBUMIN (test code = 3890756939) 4.7 g/dL 3.5-5.0 ALK PHOS (test code = 5294970415) 108 U/L 34-122 ALTv (test code = 1742-6) 24 U/L 5-35 AST(SGOT) (test code = 7261656345) 49 U/L 13-40 H eGFR (test code = 1631802248) mL/min/1.73m2 WESLEY (test code = WESLEY) Association [...] imaging tests). Lab Interpretation (test code = 51222-6) Abnormal [facility] [id number] 14:45:00* Test Item Value Reference Range Interpretation Comme nts POCT PREG (test code = 1605) negative On board controls acceptable with C Line (test code = 3574) present POCT PREG LOT # (test code = 3575) [id number] POCT PREG TEST DATE ( test code = 3576) 08/11/2023 Lab Interpretation (test cod e = 31098-1) Normal [facility] [id number] 01:22:00* Test Item Value Reference Range Interpretation Comme nts POCT PREG (test code = 1605) Negative On board controls acceptable with C Line (test code = 3574) Present POCT PREG LOT # (test code = 3575) [id number] POCT PREG TEST DATE ( test code = 3576) 08-11-2023 Lab Interpretation (test cod e = 04103-2) Normal [facility] METABOLIC PANEL (NA, K, CL, CO2, GLUCOSE, BUN, CREATININE, CA)2022-04-07 23:01:10* Test Item Value Reference Range Interpretation Comme nts NA (test code = 5609110325) 138 mmol/L 135-145 K (test code = 3624165459) 4.3 mmol/L 3.5-5.0 CL (test code = 9738551390) 107 mmol/L 98-108 CO2 TOTAL (test code = 9216551503) 20 mmol/L 23-31 L AGAP (test code = 8212720488) 2-16 BUN (test code = 2101252618) 9 mg/dL 7-23 GLUCOSE (test code = 7928228704) 204 mg/dL 70-110 H CREATININE (test code = 6908872800) 0.74 mg/dL 0.50-1.04 CALCIUM (test code = 4689987945) 9.1 mg/dL 8.6-10.6 eGFR (test code = 0564228099) mL/min/1.73m2 WESLEY (test code = WESLEY) Association [...] imaging tests). Lab Interpretation (test code = 62239-4) Abnormal [facility] WITH [id number] 22:57:34* Test Item Value Reference Range Interpretation Comme nts WBC (test code = 6690-2) See_Comment [Automated messa ge] The system which generated this result transmitted reference range: 4.30 - 11.10 10*3/?L. The reference range was not used to interpret this result as normal/abnormal. RBC (test code = 789-8) See_Comment [Automated [employer]] The system which generated this result [...] 33.5 g/dL 31.6-35.1 RDW-SD (test code = 65263-5) 42.9 fL 39.0-49.9 RDW-CV (test code = 788-0) 13.4 % 12.0-15.5 PLT (test code = 777-3) See_Comment H [Automated [employer]] The system which generated this result transmitted reference range: 166 - 358 10*3/?L. The reference range was not used to interpret this result as normal/abnormal. MPV (test code = 88561-6) 8.9 fL 9.5-12.9 L NRBC/100 WBC (test code = 7309037198) See_Comment [Automated [employer] ssage] The system which generated this result transmitted reference range: 0.0 - 10.0 /100 WBCs. The reference range was not used to interpret this result as normal/abnormal. NRBC x10^3 (test code = 7546836170) See_Comment [Automated [employer]] The system which generated this result transmitted reference range: 10*3/?L. The reference range was not used to interpret this result as normal/abnormal. GRAN MAT (NEUT) % (test code = 770-8) 88.7 % IMM GRAN % (test code = 4374757432) 0.70 % LYMPH % (test code = 736-9) 9.4 % MONO % (test code = 5905-5) 0.9 % EOS % (test code = 713-8) 0.1 % BASO % (test code = 706-2) 0.2 % GRAN MAT x10^3(ANC) (test code = 4531212928) 7.81 10*3/uL 1.88-7.09 H IMM GRAN x10^3 (test code = 8733171439) 0.06 10*3/uL 0.00-0.06 LYMPH x10^3 (test code = 731-0) 0.83 10*3/uL 1.32-3.29 L MONO x10^3 (test code = 742-7) 0.08 10*3/uL 0.33-0.92 L EOS x10^3 (test code = 711-2) 0.03-0.39 L BASO x10^3 (test code = 704-7) 0.01-0.07 Lab Interpretation (test code = 44015-5) Abnormal [facility] [id number] 14:07:00* Test Item Value Reference Range Interpretation Comme nts POCT PREG (test code = 1605) negative On board controls acceptable with C Line (test code = 3574) present POCT PREG LOT # (test code = 3575) [id number] POCT PREG TEST DATE ( test code = 3576) 08/11/2023 Lab Interpretation (test cod e = 62378-9) Normal [facility] [id number] 13:52:00* Test Item Value Reference Range Interpretation Comme nts POCT PREG (test code = 1605) negative On board controls acceptable with C Line (test code = 3574) present Lab Interpretation (test cod e = 29963-1) Normal [facility] [id number] 14:59:00* Test Item Value Reference Range Interpretation Comme nts POCT PREG (test code = 1605) negative On board controls acceptable with C Line (test code = 3574) yes POCT PREG LOT # (test code = 3575) [id number] POCT PREG TEST DATE ( test code = 3576) 07/11/2023 Lab Interpretation (test cod e = 78331-3) Normal [facility]. METABOLIC PANEL (18531)2022 17:51:43* Test Item Value Reference Range Interpretation Comme nts NA (test code = 1785876464) 139 mmol/L 135-145 K (test code = 1582263671) 4.1 mmol/L 3.5-5 CL (test code = 9948162369) 104 mmol/L 98-108 CO2 TOTAL (test code = 0190588137) 22 mmol/L 23-31 L AGAP (test code = 9362145097) 2-16 BUN (test code = 1671686354) 7 mg/dL 7-23 GLUCOSE (test code = 9983382223) 114 mg/dL 70-110 H CREATININE (test code = 5027803442) 0.69 mg/dL 0.5-1.04 TOTAL BILI (test code = 4249046624) 0.4 mg/dL 0.1-1.1 CALCIUM (test code = 2979322087) 9.7 mg/dL 8.6-10.6 T PROTEIN (test code = 5952142011) 7.2 g/dL 6.3-8.2 ALBUMIN (test code = 9764674694) 4.6 g/dL 3.5-5 ALK PHOS (test code = 7470227220) 65 U/L 34-122 ALTv (test code = 1742-6) 15 U/L 5-35 AST(SGOT) (test code = 3081656564) 19 U/L 13-40 eGFR (test code = 9080631857) mL/min/1.73m2 WESLEY (test code = WESLEY) Association [...] imaging tests). Lab Interpretation (test code = 08313-5) Abnormal [facility] WITH [id number] 17:40:24* Test Item Value Reference Range Interpretation Comme nts WBC (test code = 6690-2) See_Comment [[employer]] The system which generated this result transmitted reference range: 4.30 - 11.10 10*3/?L. The reference range was not used to interpret this result as normal/abnormal. RBC (test code = 789-8) See_Comment [[employer]] The system which generated this result transmitted [...] 33.3 g/dL 31.6-35.1 RDW-SD (test code = 41280-5) 43.1 fL 39-49.9 RDW-CV (test code = 788-0) 13.2 % 12-15.5 PLT (test code = 777-3) See_Comment [[employer]] The system which generated this result transmitted reference range: 166 - 358 10*3/?L. The reference range was not used to interpret this result as normal/abnormal. MPV (test code = 71285-7) 9.5 fL 9.5-12.9 NRBC/100 WBC (test code = 5844605334) See_Comment [Automated me ssage] The system which generated this result transmitted reference range: 0.0 - 10.0 /100 WBCs. The reference range was not used to interpret this result as normal/abnormal. NRBC x10^3 (test code = 5508060986) See_Comment [Automated messa ge] The system which generated this result transmitted reference range: 10*3/?L. The reference range was not used to interpret this result as normal/abnormal. GRAN MAT (NEUT) % (test code = 770-8) 57.8 % IMM GRAN % (test code = 1164225277) 0.20 % LYMPH % (test code = 736-9) 30.8 % MONO % (test code = 5905-5) 5.1 % EOS % (test code = 713-8) 5.6 % BASO % (test code = 706-2) 0.5 % GRAN MAT x10^3(ANC) (test code = 3250246881) 3.61 10*3/uL 1.88-7.09 IMM GRAN x10^3 (test code = 9408331417) 0-0.06 LYMPH x10^3 (test code = 731-0) 1.92 10*3/uL 1.32-3.29 MONO x10^3 (test code = 742-7) 0.32 10*3/uL 0.33-0.92 L EOS x10^3 (test code = 711-2) 0.35 10*3/uL 0.03-0.39 BASO x10^3 (test code = 704-7) 0.03 10*3/uL 0.01-0.07 Lab Interpretation (test code = 78650-6) [facility]normal [facility] VZGE0559-51-42 17:27:00* Test Item Value Reference Range Interpretation Comme nts POCT PREG (test code = 1605) negative On board controls acceptable with C Line (test code = 3574) present POCT PREG LOT # (test code = 3575) [id number] POCT PREG TEST DATE ( test code = 3576) Lab Interpretation (test cod e = 21983-7) Normal [facility]2022-[facility] 12:45:21* Test Item Value Reference Range Interpretation Comme nts LIPASE (test code = 0420158086) 41 U/L 0-220 Lab Interpretation (test cod e = 91201-1) Normal [facility] SFSU5986-94-88 10:57:00* Test Item Value Reference Range Interpretation Comme nts POCT PREG (test code = 1605) Negative On board controls acceptable with C Line (test code = 3574) Present POCT PREG LOT # (test code = 3575) [id number] POCT PREG TEST DATE ( test code = 357) 03/12/2023 Lab Interpretation (test cod e = 75542-9) Normal [facility] (NA, K, CL, CO2, GLUCOSE, BUN, CREATININE, CA)2022-01-18 10:56:51* Test Item Value Reference Range Interpretation Comme nts NA (test code = 3175261301) 137 mmol/L 135-145 K (test code = 1986401427) 4.6 mmol/L 3.5-5 Slight hemolysis CL (test code = 2848328686) 108 mmol/L 98-108 CO2 TOTAL (test code = 5292257759) 22 mmol/L 23-31 L AGAP (test code = 8529416713) 2-16 BUN (test code = 7066255912) 11 mg/dL 7-23 Slight hemolysis GLUCOSE (test code = 0401711930) 83 mg/dL 70-110 CREATININE (test code = 8055449900) 0.68 mg/dL 0.5-1.04 CALCIUM (test code = 7602808165) 8.8 mg/dL 8.6-10.6 eGFR (test code = 7503419436) mL/min/1.73m2 WESLEY (test code = WESLEY) Association [...] imaging tests). Lab Interpretation (test code = 26330-0) Abnormal [facility]HEPAT[facility] FUNCTION PANEL (10743) (ALB,T.PRO,BILI T,BU/BC,ALT,AST,ALK PHOS)2022-01-18 10:56:51* Test Item Value Reference Range Interpretation Comme nts TOTAL BILI (test code = 6225124771) 0.6 mg/dL 0.1-1.1 BILI UNCON (test code = 6246359113) 0.1 mg/dL 0.1-1.1 BILI CONJ (test code = 3545721541) 0.0 mg/dL 0-0.3 T PROTEIN (test code = 0076991311) 8.6 g/dL 6.3-8.2 H ALBUMIN (test code = 0074246029) 5.1 g/dL 3.5-5 H ALK PHOS (test code = 6133917289) 79 U/L 34-122 ALTv (test code = 1742-6) 117 U/L 5-35 H AST(SGOT) (test code = 5330820531) 163 U/L 13-40 H Lab Interpretation (test cod e = 77593-6) Abnormal [facility]PREG[facility] TEST, XYFRZ7625-04-41 10:54:25* Test Item Value Reference Range Interpretation Comme nts PREG SERUM (test code = 3293799174) Negative WESLEY (test code = WESLEY) Less than 10 IU/L. ?If low titer or ectopic is suspected, resubmit specimen in 48-[address] [facility] WITH QWZX3285-86-35 10:40:49* Test Item Value Reference Range Interpretation [...] 33.6 g/dL 31.6-35.1 RDW-SD (test code = 59884-4) 45.3 fL 39-49.9 RDW-CV (test code = 788-0) 14.5 % 12-15.5 PLT (test code = 777-3) See_Comment [Automated messa ge] The system which generated this result transmitted reference range: 166 - 358 10*3/?L. The reference range was not used to interpret this result as normal/abnormal. MPV (test code = 39305-1) 9.5 fL 9.5-12.9 NRBC/100 WBC (test code = 8707029071) See_Comment [Automated KXEN ssage] The system which generated this result transmitted reference range: 0.0 - 10.0 /100 WBCs. The reference range was not used to interpret this result as normal/abnormal. NRBC x10^3 (test code = 8821296168) See_Comment [Automated messa ge] The system which generated this result transmitted reference range: 10*3/?L. The reference range was not used to interpret this result as normal/abnormal. GRAN MAT (NEUT) % (test code = 770-8) 47.6 % IMM GRAN % (test code = 0353807114) 0.60 % LYMPH % (test code = 736-9) 39.9 % MONO % (test code = 5905-5) 5.9 % EOS % (test code = 713-8) 5.3 % BASO % (test code = 706-2) 0.7 % GRAN MAT x10^3(ANC) (test code = 9521864946) 4.45 10*3/uL 1.88-7.09 IMM GRAN x10^3 (test code = 9948191610) 0.06 10*3/uL 0-0.06 LYMPH x10^3 (test code = 731-0) 3.74 10*3/uL 1.32-3.29 H MONO x10^3 (test code = 742-7) 0.55 10*3/uL 0.33-0.92 EOS x10^3 (test code = 711-2) 0.50 10*3/uL 0.03-0.39 H BASO x10^3 (test code = 704-7) 0.07 10*3/uL 0.01-0.07 Lab Interpretation (test code = 80759-8) Abnormal [facility] OIRB8032-39-80 18:31:00* Test Item Value Reference Range Interpretation Comme nts POCT PREG (test code = 1605) Negative On board controls acceptable with C Line (test code = 3574) Yes POCT PREG LOT # (test code = 3575) POCT PREG TEST DATE ( test code = 3576) [facility] URINALYSIS W/O SPECIFIC [id number] 18:31:00* Test Item Value Reference Range Interpretation [...] 3257) Trace Negative - Negati ve [facility] Consult Notes Date/Time Note Provider Source 2023-01-12 00:12:43 Wr5RkMI8K8wCS9wF1Ysj J7DJalVn5ed97aPnab/e/i ZFjPSzeFJMrbfSHeCyazsp8085-16-36B99:12:43A ssociated Order(s): CONSULT GENERAL SURGERY TRAUMA/ACS Surgery [...] symptomatic cholelithiasis 1.5 months ago at OSH ([place]). Pt states that she has had persistent RUQ pain with nausea and po intolerance along with intermittent chills and vomiting since surgery. Was seen by PCP and instructed to come to [facility] ED for further evaluation. Review [...] N/A 07/21/2019 Surgeon: Prasanna Vargas MD; Location: [facility] Labor and Delivery OR Location TUBAL LIGATION N/A 07/21/2019 Surgeon: Prasanna Vargas MD; Location: [facility] Labor and Delivery OR Location [...] skin once every month. 1 mL 3 Estvbaouiw-Yprbfjogkhfoj-Gmrg (FIORICET) 50-300-40 mg per capsule Take 1 [...] fluid collection c/w abscess s/p elective lap pasquael for symptomatic cholelithiasis 1.5 months ago at OSH ([place]).Plan:[facility] serviceConsult IR for percutaneous drainage of [...] pain, nausea, anorexia since lap pasquale at [facility] on 12/01/22 with noted venous bleeding from [...] Surgery, and Surgical Critical Care In-house Pager: [phone] aydjBT5629966Udmkqg, Amy1.2.840.779513.1.13.104.2.7.2.909621Jsd vatPjsYX5962-12-50A34:39:26Consult noteTXT1.2.840.158786.1.13.104.2.7.2.91107 9|3501943044OZDyqpxigan for patient xfvw32725-5Otfkryn noteLNUTPEAK BEHAVIORAL [facility] SERVICES - [address] James StreetDkfsPqdiuzfppKdeolpbbcWOOF3902539198CPNIVL TYPXYVUCMOWRXVPH9815-42-83F44:39:261.2.840 .993612.1.72.3.15|1.2.840.375993.1.13.104. 2.7.2.727879_[id number] [facility] - Health History and Physical Notes Date/Time Note Provider Source 2023-01-12 01:05:04 eYIPvcyB+g+d0Mwx5ONN 2CJe3XKUex94TgfqNM4Jmw Kghm+MgwXgqrfC/kYSLN5/2237-18-97X41:05:04F ormatting of this note might be different from the original.01/12/23 1:05 AM Please refer to consult note written by Rodolfo Riggins DO on 01/12/23 for complete H&P.NITESH Gandara-2 Surgery Resident ssociated attestation - Mirella Vergara MD - 01/12/2023 1:47 AM CDT Iuwhf93627-6Oaxtyet and physical ubluXL2860829Ckjhnf, Amy1.2.840.957791.1.13.104.2.7.2.460141Shh pboMvkDY3946-10-33N34:47:52History and physical noteTXT1.2.840.248191.1.13.104.2.7.2.00186 9|1133593309MKUjeshdqsj for patient wucy37483-6Alfoyau and physical noteLNUTMB[address] JgpnTmuujpquzFeafadycvUHHU7925208782EIHVIH QLFBWFOMMTBBZELP0858-42-27O24:47:521.2.840 .489239.1.72.3.15|1.2.840.716148.1.13.104. 2.7.2.727879_[id number] [facility] Notes Date/Time Note Provider Source 2023-05-19 12:16:00 uKJ3E90kxTeNVTQ01u3V /VCC/ZAWghKBn VuA9L8wY1/EcXPZt9K71hoovhLlkP8J82 05-06-06T12:16:00 Pt given printed and verbal discharge [...] with steady gait, in no apparent distress. 91789-9Nyxayetbi department LrysRZ8813-99-69E04:20:15Emergenc y department NoteTXT1.2.840.246266.1.13.104.2. 7.2.401862|9504802035GLKgkgrapkd for patient osku30342-6NnbaZWZVRERJTGCJzwgtky ed C-CDA narrative textUT[address] LcqfNvlpcukczRhbnprwitAKBQ8847926 543JMXTAFUTLTDQWYJPSSEKHH7506-32- 07T12:20:151.2.840.924599.1.72.3. 15|1.2.840.719354.1.13.104.2.7.2. 727879_[id number] [facility] 2023-05-19 08:50:00 5JnZrLLKSNQi7sAwJECx pLRNA4b96iDZJ 8RFB5Eaq69fiW3n32xyqNpDcFVp2/ui20 05-06-06T08:50:00 Patient came in with complaints of epigastric pain that radiates to her left shoulder associated with nausea and vomiting since a couple of weeks now. Patient states that she was worked up in [place] ER 2 weeks ago and found nothing wrong, just referred to a GI doctor but she hasn't seen one because she has no insurance. 78862-3Bsgcxhaon department Triage pkivWZ7626-60-41T43:01:49Emerkaiser hayward department Triage noteTXT1.2.840.916477.1.13.104.2. 7.2.914095|0580925841TQHpvkrwmkq for patient uvmk66757-8Venglweed department NoteLNNARRATIVEFormatted C-CDA narrative mmdi032102393Boqnqfcd C Heredia RN[address] OcktEodqhlcfkPkzvysurfLOUW3188641 261JQMVWTOGSWKXFLYSGWJVJN7227-11- 07T09:01:491.2.840.135832.1.72.3. 15|1.2.840.297245.1.13.104.2.7.2. 727879_[id number] Syeda Ruiz RN [facility] 2023-01-16 10:56:45 6k3xLLbSLugOpaoN5dee mr1hJPEOpzg5J JbL87Ihq2DnSekCq43wo+LTydtX3Sz822 02-02-06T10:56:45 TRANSITIONAL CARE MANAGEMENT ASSESSMENT01/16/2023 Nikko DysonXiiazsj318294KPnzyj Nelia Dyson is a 27 year old /White female was admitted on 01/11/[address] She was discharged on 01/15/23 with discharge disposition of HR- Routine Discharge.Admitting Physician: Misty Steele Diagnosis: Postprocedural intraabdominal abscess [T81.43XA]Pt. Verbalized understanding discharge instructions. Plans to f/u with pcp.Linked Episodes Type: Episode: Status: Noted: Resolved: Last update: Updated by: TRANSITION OF CARE tcm Active 01/16/2023 01/16/2023 10:56 AM Marlys Odell LVN Comments: TCM Nqo-spbw-jt-face outreach documentation:Discharge AssessmentChart Assessed: 01/16/23TCM Outreach Completed: [...] with the names or descriptions of any yqwr-vpv-yuhyili or supplements you are currently taking?: YesSuppliesDid [...] or concerns at this time?: NoFuture Appointments: 59129-9Lsfvuvwaq encounter SpazMN0058-01-67V56:57:41Telephon e encounter NoteTXT1.2.840.075587.1.13.104.2. 7.2.485214|4720401746SEBxofqnupd for patient dmym54203-8KrljAJ109058342Insbdse ttignacio Odell [address] VyryZnpixxtdvUpoovnyzoZZCT6550183 562NQMCVFUZRUMTPSCZLFBWTF8161-36- 06T10:57:411.2.840.794122.1.72.3. 15|1.2.840.770081.1.13.104.2.7.2. 727879_[id number] Marlys Odell LVN [facility] 2023-01-15 18:18:34 cTnMoVzymct7xrgOTbMh TvxjZAfxQkxGz vtiVEQkvQLPjmruUz/WrSUVAuJ7LeSl65 02-02-05T18:18:34 Patient is cleared for discharge. Problem: [...] by Vero Crews RNOutcome: Progressing as expected 22915-9Hdku of care mmbzXA7133-50-94Z95:18:58Plan of care noteTXT1.2.840.486255.1.13.104.2. 7.2.880798|3710438269MHYufcqgpfr for patient ixoq46905-1AapfWWSPAEXRAY[address]TXTX[address] 226QYTCPZMPAAIUAVDVSEXZAU9096-04- 05T18:18:581.2.840.520926.1.72.3. 15|1.2.840.309518.1.13.104.2.7.2. 727879_[id number] [facility] 2023-01-15 15:08:00 SUAbN5vfQdX/C5jDAQk0 wu7T4tmQV2mXO kajXcGleAcV4Jn75XCf5AJ02WNKNOJr49 02-02-055:08:00 Called outpatient pharmacy and spoke to Maggi. [facility] pharmacy will bring patient's medications to her room within 45min to an hour. 30626-4Vjdgm RampRO8817-44-95G28:49:16Nurse NoteTXT1.2.840.434769.1.13.104.2. 7.2.478282|4204436867LSGkyvlmilt for patient gkjv80164-2Klkko NbtpAK958135881Raezvmt R Hanegan RN[address] YxvgPdazzbwgrCgviehqkeSGSB1182685 758MSOAZUPBCZSZTHMHFDUTZW3513-65- 05T15:49:161.2.840.192594.1.72.3. 15|1.2.840.587600.1.13.104.2.7.2. 727879_[id number] Vero Crews RN [facility] 2023-01-15 13:11:00 XivfrkmbN9l8G5StQTGF xhJdqGLhAJlB2 TBzur/VpGC+Jd07RMf/nPT1XBhMBhIy58 02-02-053:11:00 Problem: Infection RiskGoal: Absence of infectionOutcome: Progressing as expected Problem: PainGoal: Control of pain at or below patient's documented comfort goalOutcome: Progressing as expectedGoal: Reduction in pain sensationOutcome: Progressing as expected Problem: Discharge PlanningGoal: Adequate for dischargeOutcome: Progressing as expectedGoal: Effective communicationOutcome: Progressing as expected 08098-4Lhhu of care duszHM8431-40-91G09:11:04Plan of care noteTXT1.2.840.298901.1.13.104.2. 7.2.745293|4417791653JQXmgjyapip for patient kciu24554-7FdqnQEDVWGQBBM[address]TXTX[address] 884JFMITIKIPAOWBJRSIZSIUF4819-13- 05T13:11:041.2.840.553130.1.72.3. 15|1.2.840.494460.1.13.104.2.7.2. 727879_[id number] [facility] 2023-01-15 06:25:22 O0xq0nHs1SYWKtxebLLZ IGTqrEgR8ZZ84 7VLpUm1BpauPtrzWEjsxhHqhgnQJEJt46 02-02-0506:25:22 Problem: Infection RiskGoal: Absence of infectionOutcome: Progressing as expected Problem: PainGoal: Control of pain at or below patient's documented comfort goalOutcome: Progressing as expectedGoal: Reduction in pain sensationOutcome: Progressing as expected Problem: Discharge PlanningGoal: Adequate for dischargeOutcome: Progressing as expectedGoal: Effective communicationOutcome: Progressing as expected 65146-4Szhj of care hyrsKB1082-97-93D49:25:24Plan of care noteTXT1.2.840.228113.1.13.104.2. 7.2.426520|8488497157EGLwivmelvq for patient naok34437-1OxufYF459612347Hphwv M Andrews RNUT[address]vestonTXTX[address] 408QXQWVQDDYQIENLQKLJFTHO6931-45- 05T06:25:241.2.840.865988.1.72.3. 15|1.2.840.334914.1.13.104.2.7.2. 727879_[id number] Katy Means RN [facility] 2023-01-14 09:27:52 buXhs/uaa9M9cE/54kjR xOAu+7MWZ07EI F9GU5IV8KQp4ve5YXwfu9m3VVVyCVlp25 03-02-04T09:27:52 Problem: Infection RiskGoal: Absence of infectionOutcome: Progressing as expected Problem: PainGoal: Control of pain at or below patient's documented comfort goalOutcome: Progressing as expectedGoal: Reduction in pain sensationOutcome: Progressing as expected Problem: Discharge PlanningGoal: Adequate for dischargeOutcome: Progressing as expectedGoal: Effective communicationOutcome: Progressing as expected 35253-8Bljn of care wbtuLT0483-89-75Q56:27:55Plan of care noteTXT1.2.840.737726.1.13.104.2. 7.2.001686|2508769932IRQahxkfjcu for patient pakq63605-7SzzkFO113040136Jyfl W Martinez RN[address]TXTX[address] 235KJXGHMCMNBPUDHMJQDVRBD3873-28- 04T09:27:551.2.840.826971.1.72.3. 15|1.2.840.343289.1.13.104.2.7.2. 727879_[id number] Charles Win RN [facility] 2023-01-13 22:20:47 lNZQTGRX1Po4nv8/ACpd THCrH6tHad6Wh N0HCLDI/Ye4GZAo91NeCsKcLKL1oEZr61 02-02-03T22:20:47 Notified MD by bonny due to double dose of Tylenol being given. Per MD Brito no more Tylenol to be given for tonight. 72969-4Lmoog UlvsGL4146-11-89H96:25:15Nurse NoteTXT1.2.840.891634.1.13.104.2. 7.2.146330|2938229200HLMwfdvbddy for patient usiz91203-4KndaJRMEXCKDWK[address]vdGal[address]onGalvestonTXTX[address] 387ZGFMEUENVPXWHITNEQNHSG2156-69- 03T22:25:151.2.840.602573.1.72.3. 15|1.2.840.413475.1.13.104.2.7.2. 727879_[id number] [facility] 2023-01-13 21:55:20 Si7FIYmtHZ1FWxcjZvF/ H7PeOmFDQWN14 1tK+F30Asm46bCp2gMSsACd1o8Z7XaH08 02-02-03T21:55:20 Problem: Infection RiskGoal: Absence of infectionOutcome: Progressing as expected Problem: PainGoal: Control of pain at or below patient's documented comfort goalOutcome: Progressing as expectedGoal: Reduction in pain sensationOutcome: Progressing as expected Problem: Discharge PlanningGoal: Adequate for dischargeOutcome: Progressing as expectedGoal: Effective communicationOutcome: Progressing as expected 27838-4Bncm of care pcivMF0297-77-16B61:55:38Plan of care noteTXT1.2.840.858634.1.13.104.2. 7.2.622960|1045825515KBNwmvehngu for patient ehfc28253-6MhadOXELIVSLMR00 [address] StreetTXTX[address] 614LAKBYFBHEUQYFLXSJFILQI7224-46- 03T21:55:381.2.840.441566.1.72.3. 15|1.2.840.124510.1.13.104.2.7.2. 727879_[id number] [facility] 2023-01-13 08:20:43 YOftsdja/ZwyiUJbK8W3 5INxTBaapUO0n Z+gpVshPKzgJmNpp1DmrY/Ay1ehoM6935 02-02-03T08:20:43 Problem: Infection RiskGoal: Absence of infectionOutcome: Progressing as expected Problem: PainGoal: Control of pain at or below patient's documented comfort goalOutcome: Progressing as expectedGoal: Reduction in pain sensationOutcome: Progressing as expected Problem: Discharge PlanningGoal: Adequate for dischargeOutcome: Progressing as expectedGoal: Effective communicationOutcome: Progressing as expected 03794-9Zlug of care effsGJ4357-81-57Q46:20:46Plan of care noteTXT1.2.840.376562.1.13.104.2. 7.2.566154|2463164974QRRfacyuydc for patient qveg41190-8OpzlGXKUQNZUJB[address]TXTX[address] 911VXCSXRBRRPVSDXALAZEXCV3727-25- 03T08:20:461.2.840.222918.1.72.3. 15|1.2.840.285832.1.13.104.2.7.2. 727879_[id number] [facility] 2023-01-12 20:10:08 UhTTVW3DB3ims9BRzmkU 5bxqtM/oLtLn3 D19v+7doyVlI9cKQ+KjmtOOoq31cvlS63 02-02-02T20:10:08 Problem: Infection RiskGoal: Absence of infectionOutcome: Progressing as expected Problem: PainGoal: Control of pain at or below patient's documented comfort goalOutcome: Progressing as expectedGoal: Reduction in pain sensationOutcome: Progressing as expected Problem: Discharge PlanningGoal: Adequate for dischargeOutcome: Progressing as expectedGoal: Effective communicationOutcome: Progressing as expected 87517-6Fhau of care bwsqTG8603-74-66A28:10:14Plan of care noteTXT1.2.840.836468.1.13.104.2. 7.2.185315|9391985961XQEflytcieh for patient zukd80189-0ZnzwDJVNAMGMQH[address]vdGalvestonGalvestonTXTX[address] 089YNNWIAKAWUUCHMHUNGZJBO7863-50- 02T20:10:141.2.840.799386.1.72.3. 15|1.2.840.753247.1.13.104.2.7.2. 727879_[id number] [facility] 2023-01-12 09:28:38 uGOY0i4BkNWu37UFHJ+m ThDT5VoXOIjHm 0ktSGNV0NoO1b4HB5AgB9s0/E3cb8fH41 02-02-02T09:28:38 Problem: Infection RiskGoal: Absence of infectionOutcome: Progressing as expected Problem: PainGoal: Control of pain at or below patient's documented comfort goalOutcome: Progressing as expectedGoal: Reduction in pain sensationOutcome: Progressing as expected Problem: Discharge PlanningGoal: Adequate for dischargeOutcome: Progressing as expectedGoal: Effective communicationOutcome: Progressing as expected 89085-6Yxur of care szvcPZ8984-60-69I71:28:40Plan of care noteTXT1.2.840.450934.1.13.104.2. 7.2.618425|1373928493FBUyhfkmfri for patient lpoe48954-8MvplIXOFPMUMDK[address] StreetTXTX[address] 796CBQDURETJKGVEMTRLUJCGB5489-88- 02T09:28:401.2.840.486303.1.72.3. 15|1.2.840.947291.1.13.104.2.7.2. 727879_[id number] [facility] 2023-01-12 05:17:00 DAOJrSyN5mYOOmQH+WxE kvT3br98kz2hn m69NcGKFeOLgVrcQ67K4bg+drgi1nMI10 02-02-02T05:17:00 Problem: Infection RiskGoal: Absence of infectionOutcome: Progressing as expected Problem: PainGoal: Control of pain at or below patient's documented comfort goalOutcome: Progressing as expectedGoal: Reduction in pain sensationOutcome: Progressing as expected Problem: Discharge PlanningGoal: Adequate for dischargeOutcome: Progressing as expectedGoal: Effective communicationOutcome: Progressing as expected 73475-9Ozbl of care fxomQV1711-95-31X92:17:08Plan of care noteTXT1.2.840.694389.1.13.104.2. 7.2.440243|5969792635OKTgvphepxx for patient [address]TX[address] 094RZDMMETKLDQYPTBJGDLHKS6820-97- 02T05:17:081.2.840.856707.1.72.3. 15|1.2.840.681452.1.13.104.2.7.2. 727879_[id number] [facility] 2023-01-12 01:43:06 k+pP2fBe7/1+CqHTAYxb ILJ2tqtlkYTZa ufw0qbDTww5q1nZYqoS4MnEJ2G0tVGP92 02-02-02T01:43:06 Report to lisy CURRIE on 9C. Pt awaiting transport 83735-1Aarkbgnsm department FwiwAZ6635-78-05B70:43:18Emerkaiser hayward department NoteTXT1.2.840.846467.1.13.104.2. 7.2.852054|[id number] for patient axpt40788-4LjanAA035222433Ndtbs Bakari CURRIE[address] XgrpEwadnfapgEdqwymesxJUCN1270556 526DVZMDPFNJOSFRYUSKQJUGH6191-04- 02T01:43:181.2.840.126094.1.72.3. 15|1.2.840.407440.1.13.104.2.7.2. 727879_[id number] Melvin Villegas RN [facility] 2023-01-12 01:10:30 J2Gg47MZ8tZFq3DPYwej m6za3KfekSpz4 y2tcrBW/6wHuolaFg4liwhnCUNuiP6F73 02-02-02T01:10:30 Attempted report, nurse unavailable, left callback number [id number] department HqeqQY1800-67-46H29:10:42Emerkaiser hayward department NoteTXT1.2.840.827385.1.13.104.2. 7.2.921210|[id number] for patient aesa03494-8EjazKIXJJDPDVY[address]TX[address] 419ENJLHRJRIHDEFDQRMAIOXT4281-41- 02T01:10:421.2.840.715340.1.72.3. 15|1.2.840.275765.1.13.104.2.7.2. 727879_[id number] [facility] 2023-01-12 00:24:49 P2DLjox9rPv219tJbTO+ zoya/LSsc8rG6S t603lny4HS+Carrera+Z3rbvNh4ls4IyXHFD27 02-02-02T00:24:49 Surgery at bedside 71595-3Wxsbwdmku department WbevNS0588-86-33T89:24:56Emergen y department NoteTXT1.2.840.127959.1.13.104.2. 7.2.895454|[id number] for patient ddgv48540-6WwwmRMCKSTVLYX00 [address] 918NPHTPTLFKQHGBYNJOCVPCM6583-22- 02T00:24:561.2.840.638864.1.72.3. 15|1.2.840.560964.1.13.104.2.7.2. 727879_[id number] [facility] 2023-01-11 23:08:11 9B2kkQsNQT3DkUQm1KN6 b5pIbGsudx/r5 ZGVZM0SOod5ef5sz4qXXXI8N7ypcpAd60 02-02-01T23:08:11 made aware of pt increased pain and nausea 95533-9Qiqjzavku[address] [place] [address] WvjvBR3972-67-77I74:08:21Emerkaiser hayward department NoteTXT1.2.840.709140.1.13.104.2. 7.2.649518|[id number] for patient klyx67089-1MsvxVKNLZHICOU00 [address] 292BEJGJUSBYNYSIIJCJJCPDC5260-09- 01T23:08:211.2.840.896173.1.72.3. 15|1.2.840.637780.1.13.104.2.7.2. 727879_[id number] [facility] 2023-01-11 22:34:38 IBaSlghnm0NG1sqOCesn 7Lv+h1Qoyop8K 1HE6he6d5mtQpMTQgxHAXOmVM1nQAST02 02-02-01T22:34:[address], warm blanket given 20654-4Btcwmqnwb[address] AtsyWZ1899-10-41M23:34:49[facility] NoteTXT1.2.840.624240.1.13.104.2. 7.2.568013|[id number] for patient hqes49511-9NqtxGRFABOHSNB00 [address]TX[address] 322LXMORZKCFRVFYIDHQWDSSC3262-35- 01T22:34:491.2.840.520780.1.72.3. 15|1.2.840.414505.1.13.104.2.7.2. 727879_[id number] [facility] 2023-01-11 22:18:01 NigHbbUIGlmxeh2j4O3J 43VxpezQAAM5f Q9xojdy+zdFuSt1GqfApbqkdo6CLPB597 02-02-01T22:18:[address] scan 115[address]-9Fdzozmsdl department IkrbMI7972-40-62L63:18:08Emerkaiser hayward department NoteTXT1.2.840.236879.1.13.104.2. 7.2.927248|[id number] for patient jojw29550-4LqoePWWHLKEOOX[address] 998ZJRPXQRWSJEFTLXYVZLTRB0420-09- 01T22:18:081.2.840.259320.1.72.3. 15|1.2.840.909595.1.13.104.2.7.2. 727879_[id number] [facility] 2023-01-11 21:30:08 i2j1toS3uCiaOjtTp207 TP/vy11ZvUgTm o8L0QH7IGz+y/ZFPOOpFrcizYneZ64W64 02-02-01T21:30:08 Nikko Dyson is a 27 year [...] liver. Denies vomiting, denies blood in stool. 95231-2Sebcudliv department KjdqIP0008-10-49K00:32:39Emerkaiser hayward department NoteTXT1.2.840.719815.1.13.104.2. 7.2.156995|[id number] for patient hbfs55375-2JgirJYMAGKGLFX[address]TXTX[address] 685YRTCVBJSNKWKBECIITXUNX3116-06- 01T21:32:391.2.840.965710.1.72.3. 15|1.2.840.921905.1.13.104.2.7.2. [id number] [facility] 2023-01-11 21:03:38 3dX3FAA0D41Kzis96tLU d5/7AdFl1bOFl +eo6iQZrKaatrQ2MXM+T7J49Jgu9oKE01 02-02-01T21:03:38 Nikko Dyson is a 27 year old female here today c/o abdominal pain x 2 days. Pt denies N/V but reports diarrhea. Pt reports "9/10" pain at this time. Pt reports pain travels down right side abdomen. Pt is A&Ox4, NAD Noted. RR even/unlabored. 08990-3Uxfqmkokt department Triage gadlLV0400-19-03V14:05:23Emergen y department Triage noteTXT1.2.840.341775.1.13.104.2. 7.2.276567|[id number] for patient hhfp60178-7Wsfholrhi department [id number] 997SRTODNLTZDEHJLHIUAFMMR4085-33- 01T21:05:231.2.840.715789.1.72.3. 15|1.2.840.734934.1.13.104.2.7.2. [id number] [facility] 2023-01-11 20:44:00 lvcWzdsZY2sGitlFa+DF Jtmk5adbf31Zp 58Hpx0O7nWjzTTsy6vIbDNzG63wkEJC11 02-02-01T20:44:00 [facility] Emergency Department NotePatient Name: Nikko Becerra of : 1995 27 year old femaleTreatment Room: [address] [place] [address] Record Number: [id number] Care Physician: Rahat KhanPatient Escorted by: Family [5]Mode of Arrival: Personal means [1]EMS Treatment Prior to ED Arrival:DOCUMENTATION ANALYST treatment: None Travel and Exposure Screening:SymptomsDoes patient [...] 1 month ago that was done at [place]. Due to the worsening discomfort patient has, for further evaluation at [facility]. Patient states that during her cholecystectomy she [...] when she sits up. Patient has discontinued [place] and anxiety medication due to concern for her liver. She is only used a heating pad for her symptoms with minimal improvement.History provided by: PatientLanguage special machine stitcher used: No Past Medical History/Immunizations:Past Medical History: [...] N/A 07/21/2019 Surgeon: Prasanna Vargas MD; Location: [facility] Labor and Delivery OR Location TUBAL LIGATION N/A 07/21/2019 Surgeon: Prasanna Vargas MD; Location: [facility] Labor and Delivery OR Location Review [...] 0 - 220 U/L COMP. METABOLIC PANEL (05936) TOTAL BETA HCG ASSAY EXTRA TUBE ORANGE EXTRA TUBE LAV EKG:If EKG completed, see Procedure Note. Orders and Treatments:Orders Placed This Encounter Procedures CT ABDOMEN PELVIS W CONTRAST POCT TEST URINALYSIS LIPASE COMP. METABOLIC PANEL (91332) TOTAL BHCG (QUANTITATIVE) Orders Placed This Encounter [...] mouth every 6 (six) hours as needed. PFJWUDZEYV-FVHVZAXYYWBJX-PFBX (FIORICET) 50-300-40 MG PER CAPSULE Take 1 [...] in the Gallbladder fossa, post-recent cholecystectomy in [place].General surgery was consulted and admitted the patient for further workup and management. 18191-1Tkrxynrlc Emergency department [id number], Jeremy1.2.840.376566.1.13.104.2.7 .2.463218AkicpbNlxiqiUQ5099-57-01 T07:17:19Physician Emergency department NoteTXT1.2.840.972412.1.13.104.2. 7.2.471631|[id number] for patient prls96164-1Wzuewgvsu department NoteLNUT[address] Aj[id number] 064VXZYSMPCEQUUSUYEOLLEJJ9962-71- 02T07:17:191.2.840.549804.1.72.3. 15|1.2.840.363030.1.13.104.2.7.2. [id number] [facility] 2022-12-03 08:57:03 /lOh77///S0tX6Dh2L FVlujwWi3Ob+B kDav5kp33Gmbz+b/P90AmsQtY4Oonp204 03-12-23T08:57:03 Patient has an appointment 12/12/22.Blayne Silva RN 12/03/2022 8:57 AM 15962-3Jkhakrdgp encounter FngvYR3269-51-54H00:57:18Telephon e encounter NoteTXT1.2.840.606556.1.13.104.2. 7.2.706359|[id number] for patient [id number] Collins [address] MnldUtqiwmgqrNgwujnytkTQTA9441670 802HQFOUQORHYJXZYEZBEBGOS1680-97- 24T08:57:181.2.840.292283.1.72.3. 15|1.2.840.329638.1.13.104.2.7.2. [id number] Blayne Silva Formerly [facility], [facility]
[2023-06-12] MEDS ORDERED: ONDANSETRON 4 MG/2 ML VIAL ONE ×2 (06:44→12:07)
[2023-06-12] MEDS ORDERED: DIAZEPAM 10 MG/2 ML INJ SYRINGE ONE (06:44)
[2023-06-12] MEDS ORDERED: CEFTRIAXONE 1000 MG/VIAL ONE (06:44)
[2023-06-12] MEDS ORDERED: MORPHINE 4 MG/ML SYR ONE ×4 (06:44→14:55)
[2023-06-12] MEDS ORDERED: NA CHLORIDE 0.9% 2,000 ML ONE (06:45)
[2023-06-12] MEDS ORDERED: NA CHLORIDE 0.9% 50 ML ONE (06:45)
[2023-06-12] MEDS ORDERED: METRONIDAZOLE 500mg IVPB 500 MG/100 ML BAG IV ONE (06:45)
[2023-06-12 07:18] LABS: Specific Gravity 1.015 (1.005-1.030)
[2023-06-12 07:21] LABS: Protime INR 1.03
[2023-06-12 07:22] LABS: Absolute Lymphocytes (CBC) 1.3 K/uL (0.7-4.9); Hematocrit 42.8 % (36.0-45.0); Lymphocytes % 15.4 % (15.3-44.8); MCV 86.1 fL (80-100); MPV 7.5 fL (7.6-11.3); Platelets 336 thou/uL (152-406); RBC Red Blood Cell Count 4.97 M/uL (3.86-4.86)
--- NOTE | 2023-06-12 07:42 | RAD REPORT ---
EXAM DESCRIPTION: CTAbdomen Pelvis Wo Contrast - 06/12/2023 7:27 am CLINICAL HISTORY: back pain, renal stone COMPARISON: Abdomen Pelvis W Contrast dated 05/27/2023; Abdomen Pelvis Wo Contrast dated 05/18/2023 ; Stone Protocol dated 05/13/2023; Abdomen Pelvis W Contrast dated 04/08/2023 TECHNIQUE: CT of the abdomen and pelvis was performed. All CT scans are performed using dose optimization technique as appropriate and may include automated exposure control or mA/KV adjustment according to patient size. FINDINGS: Lower chest: No acute abnormality. Liver: No acute abnormality or suspicious lesions. Biliary: Cholecystectomy Stomach: No significant focal abnormality. Duodenum: No significant focal abnormality. Pancreas: No significant abnormality. Spleen: No significant abnormality. Adrenal: No suspicious lesions. Kidney/ureter: Mild right-sided hydronephrosis. 2 mm stone in the upper pole right kidney. No uretera l calculus identified. No renal calculi. Retroperitoneum: No retroperitoneal adenopathy. Vascular: No aneurysm. Bowel: No significant focal abnormality. Normal appendix. Peritoneum: No ascites or free air. Bladder: Grossly unremarkable. Reproductive: scar. Bones: No acute fracture. Other: n/a IMPRESSION: Mild right-sided hydronephrosis without obstructing stone or mass. This could be seconda ry to an ascending urinary tract infection. A 2 mm stone is present in the upper pole of the right ki dney but this is unchanged from 05/27/2023.
[2023-06-12 07:54] LABS: Albumin 4.1 g/dL (3.4-5.0); Bilirubin Total 0.9 mg/dL (0.2-1.0); Potassium 3.4 mEq/L (3.5-5.1); Protein, Total 9.2 g/dL (6.4-8.2)
--- NOTE | 2023-06-12 08:03 | ER ---
Nurse's Notes [facility] Name: Natanael Dyson Age: 28 yrs Sex: Female : 1995 Arrival Date: 06/12/2023 Time: 06:16 Bed 15 Private MD: Diagnosis: UTI/ Urinary tract infection, site not specified-Ascending;SARS-associated coronavirus as the cause of diseases classified elsewhere Presentation: 06/12 06:30 Chief complaint: Patient states: Severe lower back pain, and small urine output x2 rs5 days, pt was recently discharged from the hospital with a diagnosis of nephritis. 06:30 Method Of Arrival: Ambulatory rs5 06:30 Coronavirus screen: At this time, the client does not indicate any symptoms associated rs5 with coronavirus-19. Ebola Screen: No symptoms or risks identified at this time. Initial Sepsis Screen: Does the patient meet any 2 criteria? HR > 90 bpm. Yes Does the patient have a suspected source of infection? No. Patient's initial sepsis screen is negative. Risk Assessment: Do you want to hurt yourself or someone else? Patient reports no desire to harm self or others. Onset of symptoms was June 10, 2022. 06:30 Acuity: THIERNO 3 rs5 Historical: - Allergies: 06:40 Compazine; rs5 06:40 Haldol; rs5 06:40 Reglan; rs5 06:40 Toradol; rs5 - PMHx: 06:40 Anxiety; breast cancer (Ligation of fallopi); depressive disorder; Kidney stone; rs5 nephritis (Ligation of fallopian tube); - PSHx: 06:40 Cholecystectomy; Ligation of fallopian tube; rs5 - Immunization history:: Adult Immunizations unknown. - Social history:: Smoking status: Patient denies any tobacco usage or history of. - Family history:: not pertinent. Screenin:00 [facility] ED Fall Risk Assessment (Adult) History of falling in the last 3 months, rs5 including since admission No falls in past 3 months (0 pts) Confusion or Disorientation No (0 pts) Intoxicated or Sedated No (0 pts) Impaired Gait No (0 pts) Mobility Assist Device Used No (0 pt) Altered Elimination No (0 pt) Score/Fall Risk Level 0 - 2 = Low Risk Oriented to surroundings, Maintained a safe environment. Abuse screen: Denies threats or abuse. Nutritional screening: No deficits noted. Tuberculosis screening: No symptoms or risk factors identified. Assessment: 06:30 General: Appears distressed, uncomfortable, Behavior is cooperative, anxious. Pain: rs5 Complains of pain in lower back Pain does not radiate. Pain currently is 9 out of 10 on a pain scale. Quality of pain is described as aching, Pain began 2-3 days ago. Is continuous. Neuro: Level of Consciousness is awake, alert, obeys commands, Oriented to person, place, time, situation. Cardiovascular: Heart tones S1 S2 present Patient's skin is warm and dry. Rhythm is regular. 06:30 Respiratory: Airway is patent Respiratory effort is even, unlabored, Respiratory rs5 pattern is regular, symmetrical, Breath sounds are clear bilaterally. GI: Abdomen is round non-distended, Bowel sounds present X 4 quads. Abd is soft and non tender X 4 quads. Reports nausea. : Reports inability to void, since 06/10/22. EENT: No signs and/or symptoms were reported regarding the EENT system. Derm: Skin is intact, Skin is pink, warm \T\ dry. Musculoskeletal: Range of motion: intact in all extremities. 07:30 Reassessment: Patient and/or family updated on plan of care and expected duration. Pain rs5 level reassessed. Patient is alert, oriented x 3, equal unlabored respirations, skin warm/dry/pink. Patient states feeling better. Patient states symptoms have improved. Pain: Complains of pain in lower back Pain does not radiate. Pain currently is 4 out of 10 on a pain scale. Quality of pain is described as aching, Is continuous. 08:00 Pain: Complains of pain in lowe back Pain does not radiate. Pain currently is 8 out of rs5 10 on a pain scale. Quality of pain is described as aching, Is continuous. 08:00 Reassessment: Provider notified pt is experiencing pain . rs5 08:30 Reassessment: Patient and/or family updated on plan of care and expected duration. Pain rs5 level reassessed. Patient is alert, oriented x 3, equal unlabored respirations, skin warm/dry/pink. Patient states feeling better. Patient states symptoms have improved. Vital Signs: 06:30 BP 139 / 89; Pulse 120; Resp 17; Temp 99.5; Pulse Ox 99% ; rs5 07:30 BP 143 / 91; Pulse 110; Resp 17; Pulse Ox 99% on R/A; rs5 08:10 BP 135 / 87; Pulse 112; Resp 17; Pulse Ox 99% on R/A; rs5 09:05 BP 139 / 92; Pulse 105; Resp 18; Pulse Ox 99% on R/A; rs5 Giovana Coma Score: 07:08 Eye Response: spontaneous(4). Motor Response: obeys commands(6). Verbal Response: sp4 oriented(5). Total: 15. ED Course: 06:18 Patient arrived in ED. jj6 06:21 Brodie Mota MD is Attending Physician. sp4 07:00 Patient has correct armband on for positive identification. Placed in gown. Bed in low rs5 position. Call light in reach. Side rails up X2. 07:08 Attending Physician role handed off by Brodie Mota MD rn 07:08 Harjit Samson MD is Attending Physician. rn 07:14 Brody Sevilla RN is Primary Nurse. rs5 07:26 Triage completed. rs5 07:29 CT Abd/Pelvis - Without Contrast In Process Unspecified. EDMS 08:02 Stone Samson MD is Hospitalizing Provider. rn 08:04 Cam Powers MD is Hospitalizing Provider. rn 08:54 Inserted saline lock: 20 gauge in right antecubital area, using aseptic technique. ld1 Blood collected. 09:20 No provider procedures requiring assistance completed. rs5 09:20 Patient admitted, IV remains in place. rs5 16:31 Provided Education on: POC. Verbalized understanding. . me1 16:33 Arm band placed on Patient placed. me1 Administered Medications: 07:10 Drug: NS 0.9% IV 1000 ml IV at 1 bolus Per protocol; 1000 mL bolus Route: IV; Rate: 1 rs5 bolus; Site: right antecubital; 07:30 Follow up: Response: No adverse reaction rs5 16:19 Follow up: IV Status: Completed infusion me1 07:10 Drug: Ondansetron IVP 4 mg IVP once; over 2 minutes Route: IVP; Site: right antecubital;rs5 07:30 Follow up: Response: No adverse reaction; Nausea is decreased rs5 07:10 Drug: morphine IVP or IV 8 mg IVP once over 4 mins Route: IVP; Infused Over: 4 mins; rs5 Site: right antecubital; 07:30 Follow up: Response: No adverse reaction; Pain is decreased rs5 07:10 Drug: metroNIDAZOLE IVPB 500 mg 100 ml IVPB at 200 ml/hr once over 30 mins Volume: 100 rs5 ml; Route: IVPB; Rate: 200 ml/hr; Infused Over: 30 mins; Site: right antecubital; 07:30 Follow up: Response: No adverse reaction rs5 16:19 Follow up: IV Status: Completed infusion me1 07:10 Drug: Diazepam IVP 5 mg IVP once Route: IVP; Site: right antecubital; rs5 07:30 Follow up: Response: No adverse reaction; Anxiety decreased rs5 07:10 Drug: NS 0.9% IV 1000 ml IV at 125 ml/hr continuous Route: IV; Rate: 125 ml/hr; Site: rs5 right antecubital; 07:30 Follow up: Response: No adverse reaction rs5 16:18 Follow up: IV Status: Completed infusion me1 07:12 Drug: Rocephin - Rocephin (cefTRIAXone) IVPB 1 grams IVPB once over 30 mins; (mix in 50 rs5 mL NS) Route: IVPB; Infused Over: 30 mins; Site: right antecubital; 07:30 Follow up: Response: No adverse reaction rs5 16:19 Follow up: IV Status: Completed infusion me1 08:08 Drug: morphine IVP or IV 4 mg IVP once over 4 mins Route: IVP; Infused Over: 4 mins; rs5 Site: right antecubital; 08:30 Follow up: Response: No adverse reaction; Pain is decreased rs5 Medication: 09:10 VIS not applicable for this client. rs5 Outcome: 08:02 Decision to Hospitalize by Provider. rn 09:10 Admitted to ER Hold. Please see [facility] for further documentation. rs5 09:10 Condition: stable 09:10 Instructed on the need for admit, Demonstrated understanding of instructions, 16:33 Admitted to Med/surg accompanied by tech, via wheelchair, room 228, with chart, Report me1 called to Rosemarie Jefferson RN 16:33 Condition: stable 16:33 Instructed on the need for admit, 16:58 Patient left the ED. rs5 Signatures: Dispatcher [employer] Harjit Elliott MD MD rn Sims, Lauren, RN RN ld1 Gisela Trujillo Ricky, RN RN rs5 Brodie Mota MD MD sp4 Pamela Roy RN RN me1
--- NOTE | 2023-06-12 08:03 | EDPHYS ---
Physician Documentation [facility] Name: Natanael Dyson Age: 28 yrs Sex: Female : 1995 Arrival Date: 06/12/2023 Time: 06:16 Bed 15 Private MD: ED Physician Harjit Samson HPI: 06/12 06:26 This 28 yrs old Female presents to ER via Unassigned with complaints of sp4 Possible Kidney Stone, Urinary Retention. 07:08 28 -year-old female presents with worsening moderate to severe back pain bilaterally sp4 associated with painful urination.. Patient states pain has intensified last 2 days. Patient was managed in this hospital for pyelonephritis and left hospital AGAINST MEDICAL ADVICE on 05/29/2023. Since then patient did not take an antibiotics at home. . Historical: - Allergies: 06:40 Compazine; rs5 06:40 Haldol; rs5 06:40 Reglan; rs5 06:40 Toradol; rs5 - PMHx: 06:40 Anxiety; breast cancer (Ligation of fallopi); depressive disorder; Kidney stone; rs5 nephritis (Ligation of fallopian tube); - PSHx: 06:40 Cholecystectomy; Ligation of fallopian tube; rs5 - Immunization history:: Adult Immunizations unknown. - Social history:: Smoking status: Patient denies any tobacco usage or history of. - Family history:: not pertinent. ROS: 07:08 Constitutional: Negative for fever, chills, and weight loss, positive back pain, sp4 positive painful urination 07:08 All other systems are negative, Exam: 07:08 Constitutional: This is a well developed, well nourished patient who is awake, alert, sp4 patient has acute distress secondary to pain. Head/Face: Normocephalic, atraumatic. Eyes: Pupils equal round and reactive to light, extra-ocular motions intact. Lids and lashes normal. Conjunctiva and sclera are not injected. Cornea within normal limits. Periorbital areas with no swelling, redness, or edema. ENT: Nares patent. No nasal discharge, no septal abnormalities noted. Tympanic membranes are normal and external auditory canals are clear. Oropharynx with no redness, swelling, or masses, exudates, or evidence of obstruction, uvula midline. Mucous membranes moist. Neck: Trachea midline, no thyromegaly or masses palpated, and no cervical lymphadenopathy. Supple, full range of motion without nuchal rigidity, or vertebral point tenderness. Chest/axilla: Normal chest wall appearance and motion. Nontender with no deformity. No lesions are appreciated. Cardiovascular: Regular rate and rhythm with a normal S1 and S2. No gallops, murmurs, or rubs. Normal PMI, no JVD. No pulse deficits. Respiratory: Lungs have equal breath sounds bilaterally, clear to auscultation and percussion. No rales, rhonchi or wheezes noted. No increased work of breathing, no retractions or nasal flaring. Abdomen/GI: Soft, non-tender, with normal bowel sounds. No distension or tympany. No guarding or rebound. No evidence of tenderness throughout. Back: No spinal tenderness. No costovertebral tenderness. Skin: Warm, dry with normal turgor. Normal color with no rashes, no lesions, and no evidence of cellulitis. MS/ Extremity: Pulses equal, no cyanosis. Neurovascular intact. Full, normal range of motion. Neuro: Awake and alert, GCS 15, oriented to person, place, time, and situation. Cranial nerves II-XII grossly intact. Motor strength 5/5 in all extremities. Sensory grossly intact. Psych: Awake, alert, with orientation to person, place and time. Behavior, mood, and affect are within normal limits Vital Signs: 06:30 BP 139 / 89; Pulse 120; Resp 17; Temp 99.5; Pulse Ox 99% ; rs5 07:30 BP 143 / 91; Pulse 110; Resp 17; Pulse Ox 99% on R/A; rs5 08:10 BP 135 / 87; Pulse 112; Resp 17; Pulse Ox 99% on R/A; rs5 09:05 BP 139 / 92; Pulse 105; Resp 18; Pulse Ox 99% on R/A; rs5 Giovana Coma Score: 07:08 Eye Response: spontaneous(4). Motor Response: obeys commands(6). Verbal Response: sp4 oriented(5). Total: 15. MDM: 06:42 Patient medically screened. sp4 07:10 Differential Diagnosis altered mental status, sepsis, flu. Data reviewed: vital signs, sp4 nurses notes, old medical records, lab test result(s), radiologic studies, CT scan. Transition of care: After a detail discussion of the patient's case, care is transferred to Harjit Samson MD. 08:01 Consideration of Admission/Observation Patient was admitted/placed on observation. rn Escalation of care including admission/observation considered. Management of patient was discussed with the following: Hospitalist: Discussed case, will evaluate and admit patient. Counseling: I had a detailed discussion with the patient and/or guardian regarding the historical points, exam findings, and any diagnostic results supporting the discharge/admit diagnosis, lab results, radiology results, the need for further work-up and treatment in the hospital. Response to treatment: There is no appreciated change of the patient's symptoms at this time. 06/12 06:22 Order name: CBC with Diff; Complete Time: 07:45 sp4 06/12 06:22 Order name: CMP; Complete Time: 08:05 sp4 06/12 06:22 Order name: Lipase; Complete Time: 08:05 sp4 06/12 06:22 Order name: Test, Urine; Complete Time: 07:45 sp4 06/12 06:22 Order name: Urinalysis w/ reflexes; Complete Time: 07:45 sp4 06/12 06:31 Order name: Blood Culture Adult (2) sp4 06/12 06:31 Order name: Lactate w/ 2H reflex if indic.; Complete Time: 07:45 sp4 06/12 06:31 Order name: PT-INR; Complete Time: 07:45 sp4 06/12 06:31 Order name: CRP; Complete Time: 07:45 sp4 06/12 07:56 Order name: Flu rs5 06/12 07:56 Order name: SARS RAPID ds4 06/12 08:40 Order name: Magnesium EDMS 06/12 08:40 Order name: Phosphorus EDMS 06/12 08:40 Order name: T4 Free EDMS 06/12 08:40 Order name: Thyroid Stimulating Hormone EDMS 06/12 08:40 Order name: Urinalysis w/ reflexes EDMS 06/12 08:40 Order name: Basic Metabolic Panel EDMS 06/12 08:40 Order name: Basic Metabolic Panel EDMS 06/12 08:40 Order name: CBC with Automated Diff EDMS 06/12 08:40 Order name: CBC with Automated Diff EDMS 06/12 06:22 Order name: CT Abd/Pelvis - Without Contrast; Complete Time: 07:45 sp4 06/12 06:22 Order name: IV Saline Lock; Complete Time: 07:45 sp4 06/12 06:22 Order name: Labs collected and sent; Complete Time: 07:45 sp4 Administered Medications: 07:10 Drug: NS 0.9% IV 1000 ml IV at 1 bolus Per protocol; 1000 mL bolus Route: IV; Rate: 1 rs5 bolus; Site: right antecubital; 07:30 Follow up: Response: No adverse reaction rs5 16:19 Follow up: IV Status: Completed infusion me1 07:10 Drug: Ondansetron IVP 4 mg IVP once; over 2 minutes Route: IVP; Site: right antecubital;rs5 07:30 Follow up: Response: No adverse reaction; Nausea is decreased rs5 07:10 Drug: morphine IVP or IV 8 mg IVP once over 4 mins Route: IVP; Infused Over: 4 mins; rs5 Site: right antecubital; 07:30 Follow up: Response: No adverse reaction; Pain is decreased rs5 07:10 Drug: metroNIDAZOLE IVPB 500 mg 100 ml IVPB at 200 ml/hr once over 30 mins Volume: 100 rs5 ml; Route: IVPB; Rate: 200 ml/hr; Infused Over: 30 mins; Site: right antecubital; 07:30 Follow up: Response: No adverse reaction rs5 16:19 Follow up: IV Status: Completed infusion me1 07:10 Drug: Diazepam IVP 5 mg IVP once Route: IVP; Site: right antecubital; rs5 07:30 Follow up: Response: No adverse reaction; Anxiety decreased rs5 07:10 Drug: NS 0.9% IV 1000 ml IV at 125 ml/hr continuous Route: IV; Rate: 125 ml/hr; Site: rs5 right antecubital; 07:30 Follow up: Response: No adverse reaction rs5 16:18 Follow up: IV Status: Completed infusion me1 07:12 Drug: Rocephin - Rocephin (cefTRIAXone) IVPB 1 grams IVPB once over 30 mins; (mix in 50 rs5 mL NS) Route: IVPB; Infused Over: 30 mins; Site: right antecubital; 07:30 Follow up: Response: No adverse reaction rs5 16:19 Follow up: IV Status: Completed infusion me1 08:08 Drug: morphine IVP or IV 4 mg IVP once over 4 mins Route: IVP; Infused Over: 4 mins; rs5 Site: right antecubital; 08:30 Follow up: Response: No adverse reaction; Pain is decreased rs5 Disposition Summary: 06/12/23 08:02 Hospitalization Ordered Notes: Hospitalization Status: Inpatient Admission rn Condition: Stable rn Problem: new rn Symptoms: are unchanged rn Bed/Room Type: Standard rn Provider: Cam Powers(06/12/23 08:04) rn Location: Telemetry/MedSurg (Inpatient)(06/12/23 16:12) bd Room Assignment: 228(06/12/23 16:12) bd Diagnosis - UTI/ Urinary tract infection, site not specified - Ascending rn - SARS-associated coronavirus as the cause of diseases classified elsewhere rn Forms: - Medication Reconciliation Form rn - SBAR form rn - Leadership Thank You Letter rn Signatures: Dispatcher [employer] EDMS Miley Hernández Roman, MD MD rn Leal, Jahala, RN RN jl7 Brody Sevilla RN RN rs5 Brodie Mota MD MD sp4 Pamela Roy RN me1 Corrections: (The following items were deleted from the chart) 08:04 08:02 Stone Samson rn rn 11:42 08:02 Telemetry/MedSurg (Inpatient) alva martinez 11:42 08:02 alva martinez 16:12 11:42 [facility] ER HOLD jl7 bd 16:12 11:42 ERHOLD- jl7 bd
[2023-06-12 08:31] LABS: SARS-CoV-2 Antigen Rapid Res Positive (Negative)
[2023-06-12] MEDS ORDERED: HYDROCODONE/APAP 5/325 MG TAB PO PRN (08:33)
[2023-06-12] MEDS ORDERED: ACETAMINOPHEN 325 MG TABLET PO PRN (08:33)
[2023-06-12] MEDS ORDERED: LABETALOL 20 MG/4ML SYRINGE IV PRN (08:39)
--- NOTE | 2023-06-12 08:40 | P.HP ---
Certification for Inpatient Patient admitted to: Observation With expected LOS: <2 Midnights Patient will require the following post-hospital care: None Practitioner: I am a practitioner with admitting privileges, knowledge of patient current condition, hospital course, and medical plan of care. Services: Services provided to patient in accordance with Admission requirements found in Title 42 Section 412.3 of the Code of Federal Regulations <FarhanshawNacho E - Last Filed: 06/12/23 16:51> Patient History Date of Service: 06/12/23 Reason for admission: Bilateral flank pain. History of Present Illness: Patient is a 28-year-old female with a past medical history significant for depression, anxiety disorder, kidney stones, Bipolar disorder, ADHD, Oppositional defiant disorder who presents with complaints of bilateral flank pain that has been ongoing for the past 3 days. Patient rated pain as 10/10 in severity and described pain as sharp/cramping in quality. Patient reported associated signs and symptoms of chills, nausea, shortness of breath, rhinorrhea and chest congestion. Patient reported that she has been unable to keep any p.o. intake. Patient denies any other signs and symptoms. Symptoms are aggravated or relieved by nothing. Patient decided to present to the hospital due to worsening symptoms. Of note, patient was recently admitted to the hospital for similar symptoms but left AMA. - Past Medical/Surgical History -: Bipolar Disorder -: Oppositional Defiant Disorder -: ADHD -: Anxiety -: Nephrolithiasis -: Hx ADA (Dr. Bear/ Dr. Harris) -: -: tubal ligation -: Jayson Rainesey 12/01/2022 - Social History Smoking Status: Never smoker Alcohol use: No CD- Drugs: No Caffeine use: Yes Place of Residence: Home <Nacho Short E - Last Filed: 06/12/23 16:51> Date of Service: 06/12/23 <Cam Powers - Last Filed: 06/12/23 17:44> Allergies ketorolac [From Toradol] Allergy (Verified 12/01/22 06:33) Hives/Rash metoclopramide [From Reglan] Allergy (Verified 12/01/22 06:33) Hives/Rash prochlorperazine [From Compazine] Allergy (Verified 12/01/22 06:33) Hives/Rash Home Medications: NK [No Home Meds] 05/27/23 Review of Systems General: Chills Eyes: Unremarkable ENT: Other (Rhinorrhea, chest congestion) Respiratory: Shortness of Breath Cardiovascular: Unremarkable Gastrointestinal: Nausea Genitourinary: Other (Flank pain) Musculoskeletal: Unremarkable Integumentary: Unremarkable Neurological: Unremarkable <Nacho Short - Last Filed: 06/12/23 16:51> Physical Examination - Physical Exam General: Alert, In no apparent distress, Oriented x3, Cooperative HEENT: Atraumatic, PERRLA, Mucous membr. moist/pink, EOMI, Sclerae nonicteric Neck: Supple, 2+ carotid pulse no bruit, No LAD, Without JVD or thyroid abnormality Respiratory: Normal air movement, Diminished Cardiovascular: No edema, Regular rate/rhythm, Normal S1 S2 Capillary refill: <2 Seconds Gastrointestinal: Normal bowel sounds, Non-distended, No tenderness Musculoskeletal: No clubbing, No tenderness Integumentary: No rashes Neurological: Normal speech, Normal tone, Normal affect Lymphatics: No axilla or inguinal lymphadenopathy - Studies Laboratory Data (last 24 hrs) 06/12/23 06/12/23 06/12/23 07:00 07:00 07:00 WBC 8.30 Hgb 14.5 Hct 42.8 Plt Count 336 PT 11.3 INR 1.03 Sodium 137 Potassium 3.4 L BUN 12 Creatinine 0.94 Glucose 91 Total Bilirubin 0.9 AST 113 H ALT 122 H Alkaline Phosphatase 145 H Lipase 24 <Nacho Short E - Last Filed: 06/12/23 16:51> - Studies Laboratory Data (last 24 hrs) 06/12/23 06/12/23 06/12/23 07:00 07:00 07:00 WBC Hgb Hct Plt Count PT 11.3 INR 1.03 Sodium 137 Potassium 3.4 L BUN 12 Creatinine 0.94 Glucose 91 Phosphorus 3.3 Magnesium 1.9 Total Bilirubin 0.9 AST 113 H ALT 122 H Alkaline Phosphatase 145 H Lipase 24 06/12/23 07:00 WBC 8.30 Hgb 14.5 Hct 42.8 Plt Count 336 PT INR Sodium Potassium BUN Creatinine Glucose Phosphorus Magnesium Total Bilirubin AST ALT Alkaline Phosphatase Lipase Microbiology Data (last 24 hrs): 06/12/23 07:58 Nasopharnyx Influenza Type A Antigen Screen - Final 06/12/23 07:58 Nasopharnyx Influenza Type B Antigen Screen - Final <Cam Powers Jessica - Last Filed: 06/12/23 17:44> Assessment and Plan - Plan --Pyelonephritis\ascending UTI. CT abdomen indicates Mild right-sided hydronephrosis without obstructing stone or mass. This could be secondary to an ascending urinary tract infection. Continue antibiotics. --COVID-19 infection. Pulmonology consulted. Will await further recommendations. --Acute pain. We will manage pain on current pain medication regimen.-- --CKD 2. Stable. Will continue to monitor renal functions. --Depression\anxiety disorder bipolar disorder\ADHD\oppositional defiant disorder. Continue home medications. --GERD. Continue Protonix. --Nausea. Antiemetics on board. Continue supportive care. --DVT prophylaxis with Lovenox subQ Discharge Plan: Home Plan to discharge in: 48 Hours - Advance Directives Does patient have a Living Will: No Does patient have a Durable POA for Healthcare: No - Code Status/Comfort Care Code Status Assessed: Yes Physician Review: Patient Assessed, Agree with Above Assessment and Plan Critical Care: No <Nacho Short - Last Filed: 06/12/23 16:51> - Plan Pt seen and examined. I agree with the note by the LOGISTICS COORDINATOR. Pt is a 28 yo female with past medical history of Anxiety, nephrolithiasis, Depression and breast cancer who presents with severe back pain. Of note pt was here 2 weeks ago but had to leave AMA in order to take care of her sick baby. Pt reports worsening of the back pain. On admission, CT abd abd shows early pyelonephritis. Medicine was called for admission. Lab studies show K 3.4, Na 137, glucose 91, and COVID is positive. CT abd /pelvis shows mild right-sided hydronephrosis without obstructing stone or mass. This could be secondary to an ascending urinary tract infection. A 2 mm stone is present in the upper pole of the right kidney, unchanged from 05/27/2023. ROS is significant for right CVA. A/P: Acute pyelonephritis: Continue rocephin, IVF, prn morphine, and follow up urine cx. COVID 19: Continue enhanced resp precaution. Pt is oxygenating well on room air. Continue vitamin D, vitamin C and zinc sulfate. 2mm renal stone. Will give IVF and strain unrine. Anxiety/Depression: Will continue prn Ativan DVT ppx: SCD Code: full <Cam Powers - Last Filed: 06/12/23 17:44>
[2023-06-12] MEDS ORDERED: HYDROCODONE/APAP 10/325 TAB PO PRN (08:50)
[2023-06-12] MEDS: ASPIRIN 81 MG CHEWABLE TABLET PO SCH (09:00)
[2023-06-12] MEDS ORDERED: ASPIRIN 81 MG CHEWABLE TABLET ONE (09:02)
[2023-06-12] MEDS ORDERED: ENOXAPARIN 40 MG/0.4 ML SQ ONE (09:06)
[2023-06-12] MEDS ORDERED: LORazepam 2 MG/ML VIAL ONE (09:19)
[2023-06-12] MEDS: MORPHINE 4 MG/ML SYR IV PRN ×4 (09:30→21:52)
[2023-06-12 10:28] LABS: Magnesium 1.9 mg/dL (1.6-2.4); Phosphorus 3.3 mg/dL (2.5-4.9); Thyroid Stimulating Hormone 1.98 uIU/mL (0.358-3.740)
[2023-06-12] MEDS: ONDANSETRON 4 MG/2 ML VIAL IV PRN ×2 (12:08→18:27)
[2023-06-12 12:14] VITALS: BMI 24.5
[2023-06-12] MEDS ORDERED: PROMETHAZINE INJ 25 MG/ML AMP ONE (15:20)
[2023-06-12] MEDS: PROMETHAZINE INJ 25 MG/ML AMP IV PRN ×2 (15:25→21:53)
[2023-06-12] MEDS ORDERED: POTASSIUM CL SA 10 MEQ TAB PO ONE (17:00)
[2023-06-12] MEDS ORDERED: ENOXAPARIN 40 MG/0.4 ML SQ SCH (17:00)
[2023-06-12] MEDS: PANTOPRAZOLE 40MG TABLET PO SCH (17:24)
[2023-06-13] MEDS: ONDANSETRON 4 MG/2 ML VIAL IV PRN (00:57)
[2023-06-13] MEDS: MORPHINE 4 MG/ML SYR IV PRN ×3 (00:57→07:37)
[2023-06-13] MEDS ORDERED: guaiFENesin 100 MG/5 ML UCUP PO PRN (04:06)
[2023-06-13] MEDS: PROMETHAZINE INJ 25 MG/ML AMP IV PRN (04:14)
[2023-06-13] MEDS: PANTOPRAZOLE 40MG TABLET PO SCH (06:13)
[2023-06-13 06:43] LABS: Absolute Lymphocytes (CBC) 1.6 K/uL (0.7-4.9); Hematocrit 35.3 % (36.0-45.0); Lymphocytes % 34.6 % (15.3-44.8); MCV 86.8 fL (80-100); MPV 7.7 fL (7.6-11.3); Platelets 289 thou/uL (152-406); RBC Red Blood Cell Count 4.07 M/uL (3.86-4.86)
[2023-06-13 06:57] LABS: Potassium 3.5 mEq/L (3.5-5.1)
--- NOTE | 2023-06-13 08:29 | P.CNS ---
Date of Consult: 06/13/23 Reason for Consult: Tested positive for coronavirus Chief Complaint: Bilateral flank pain. History of Present Illness: Patient is 28 years of age significant medical problems kidney stones bipolar he was admitted with bilateral flank pain also tested positive for COVID complaining of shortness of breath rhinorrhea chest congestion will do keep anything down complaining of shortness of breath Allergies ketorolac [From Toradol] Allergy (Verified 12/01/22 06:33) Hives/Rash metoclopramide [From Reglan] Allergy (Verified 12/01/22 06:33) Hives/Rash prochlorperazine [From Compazine] Allergy (Verified 12/01/22 06:33) Hives/Rash Home Medications: NK [No Home Meds] 05/27/23 - Past Medical/Surgical History -: Bipolar Disorder -: Oppositional Defiant Disorder -: ADHD -: Anxiety -: Nephrolithiasis -: Hx ADA (Dr. Bear/ Dr. Harris) -: -: tubal ligation -: Lap Choley 12/01/2022 - Social History Smoking Status: Unknown if ever smoked Alcohol use: No CD- Drugs: No Caffeine use: No Place of Residence: Home Review of Systems Unremarkable General: Weakness Respiratory: Shortness of Breath Physical Examination Temp Pulse Resp BP Pulse Ox 98.4 F 85 18 121/81 99 06/13/23 04:00 06/13/23 04:00 06/13/23 04:11 06/13/23 04:00 06/13/23 04:11 General: Alert, In no apparent distress, Oriented x3 Neck: Supple Respiratory: Clear to auscultation bilaterally Cardiovascular: No edema, Normal S1 S2, Abnormal S3 Gastrointestinal: Normal bowel sounds, Soft and benign, Non-distended Laboratory Data (last 24 hrs) 06/12/23 07:00 Phosphorus 3.3 Magnesium 1.9 - Problems (1) Coronavirus infection Current Visit: Yes Status: Acute Plan: Patient is 28 years of age tested positive for coronavirus has been having more shortness of breath history of asthma appears to be well-controlled patient's chemistries are unremarkable patient has mild right-sided hydronephrosis 2 mm calculus doubt pyelonephritis she is still not feeling well no fever since admission patient has normal oxygen saturation add low-dose dexamethasone po ssible discharge
[2023-06-13] MEDS ORDERED: VITAMIN D 1000 UNIT TAB PO SCH (09:00)
[2023-06-13] MEDS ORDERED: dexAMETHasone 4 MG TAB PO SCH (09:00)
[2023-06-13] MEDS ORDERED: ZINC SULFATE 220 MG CAP PO SCH (09:00)
[2023-06-13] MEDS ORDERED: ASCORBIC ACID 500 MG TABLET PO SCH (09:00)
[2023-06-13] MEDS: CEFTRIAXONE 1,000 MG in NA CHLORIDE 0.9% 50 ML IVPB SCH ×2 (09:00→09:15)
[2023-06-13] MEDS: ASPIRIN 81 MG CHEWABLE TABLET PO SCH (09:16)
[2023-06-13 09:24] VITALS: O2SAT 99
--- NOTE | 2023-06-13 09:59 | RAD REPORT ---
EXAM DESCRIPTION: RAD - Chest Single View - 06/13/2023 9:52 am CLINICAL HISTORY: COVID infection COMPARISON: Chest Single View dated 05/15/2023; Chest Pa And Lat (2 Views) dated 01/02/2023; Chest Sing le View dated 12/27/2022; Chest Single View dated 12/06/2022 FINDINGS: Lines: None. Lungs: No evidence of edema or pneumonia. Pleural: No significant pleural effusions or pneumothorax. Cardiac: The heart size is within normal limits. Mediastinum: Within normal limits. Bones: No acute fractures. Other: None IMPRESSION: No acute cardiopulmonary disease.
--- NOTE | 2023-06-13 11:35 | P.PN ---
Subjective Date of Service: 06/13/23 Chief Complaint: Bilateral flank pain. Subjective: No new changes, Improving, New changes, Doing well Patient is alert and oriented x 3 Resting in the bed NAD Denies any pain or shortness of breath Vital stable <Juana Morejon - Last Filed: 06/13/23 11:33> Date of Service: 06/14/23 <Cam Powers - Last Filed: 06/14/23 18:08> Review of Systems 10-point ROS is otherwise unremarkable <Juana Morejon - Last Filed: 06/13/23 11:33> Physical Examination - Vital Signs Temperature: 98.5 F Blood Pressure: 131/80 Pulse: 88 Respirations: 18 Pulse Ox (%): 100 - Physical Exam General: Alert, In no apparent distress HEENT: Atraumatic, Normocephalic Neck: Supple, 2+ carotid pulse no bruit Respiratory: Clear to auscultation bilaterally, Normal air movement Cardiovascular: No edema, Normal pulses Capillary refill: <2 Seconds Gastrointestinal: Normal bowel sounds, Soft and benign, Other (Abdominal tenderness) Musculoskeletal: No clubbing, No swelling Integumentary: No rashes, No breakdown, No warmth Neurological: Normal speech, Normal tone, Normal affect - Studies Microbiology Data (last 24 hrs): 06/12/23 07:58 Nasopharnyx Influenza Type A Antigen Screen - Final 06/12/23 07:58 Nasopharnyx Influenza Type B Antigen Screen - Final <Juana Morejon - Last Filed: 06/13/23 11:33> Assessment And Plan - Plan --Pyelonephritis: with ascending UTI. CT abdomen indicates Mild right-sided hydronephrosis without obstructing stone or mass. This could be secondary to an ascending urinary tract infection. Continue antibiotics. --COVID-19 infection. Pulmonology consulted. Will await further recommendations. --Acute pain. We will manage pain on current pain medication regimen.-- --CKD 2. Stable. Will continue to monitor renal functions. --Depression\anxiety disorder bipolar disorder\ADHD\oppositional defiant disorder. Continue home medications. --GERD. Continue Protonix. --Nausea. Antiemetics on board. Continue supportive care. --DVT prophylaxis with Lovenox subQ Discharge Plan: Home Plan to discharge in: 24 Hours - Code Status/Comfort Care Code Status Assessed: Yes (full code) Code Status: Full Code Physician Review: Patient Assessed, Agree with Above Assessment and Plan Critical Care: No Time Spent Managing PTS Care (In Minutes): 35 (minutes) <Juana Morejon - Last Filed: 06/13/23 11:33> - Plan Pt seen and examined. I agree with the note by the CERTIFIED REGISTERED LOCKSMITH. Pt is complaining of right CVA tenderness. She left AMA <Cam Powers - Last Filed: 06/14/23 18:08>
[2023-06-13 13:08] VITALS: BP 131/84; TEMP 98
== END 2023-06-13 13:42 | disposition left against medical advice (07) ==
LOC: ER 06:16 → ERHOLD 08:33 → 2ND 16:20
PROVIDERS: ADMIT Hospitalist; ATTEND Hospitalist
DX: N39.0 Urinary tract infection, site not specified (principal); N12 Tubulo-interstitial nephritis, not specified as acute or chronic; U07.1 COVID-19; F41.9 Anxiety disorder, unspecified; F32.A Depression, unspecified; F31.9 Bipolar disorder, unspecified; F90.9 Attention-deficit hyperactivity disorder, unspecified type; F91.3 Oppositional defiant disorder; N18.2 Chronic kidney disease, stage 2 (mild); K21.9 Gastro-esophageal reflux disease without esophagitis; R11.0 Nausea; R52 Pain, unspecified; J45.909 Unspecified asthma, uncomplicated; Z85.3 Personal history of malignant neoplasm of breast
CPT/HCPCS: 87040 ×2; 85025 ×2; 80048; 36415 ×2; 83735; 81025; 84100; 85610; 83605; 84443; 84439; 83690; 80053; 86140; 87804 ×2; 74176; 71045; 87811; J2550 ×3; J8540; J1650; J3360; J2405 ×5; J7030; J0696 ×2; G0378

== ENCOUNTER → 2023-06-19 | Emergency (ER) | payer OTHER ==
[~2023-06-19] MED LIST changes: -DICYCLOMINE HCL 10 MG CAP ONE; -FAMOTIDINE 20 MG TAB ONE; +HYDROCODONE/APAP 5/325 MG TAB ONE; +MORPHINE 4 MG/ML SYR ONE; +NA CHLORIDE 0.9% 2,000 ML ONE; -SIMETHICONE 80 MG CHEWABLE TAB ONE; -SUCRALFATE 1 GM TABLET ONE
--- OUTSIDE RECORDS SUMMARY | 2023-06-19 08:46 | XMS REPORT | Continuity of Care Document ---
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 50 mg tablet 3-0 -23 00:00: 00 Yes 50mg Take 1 tablet by mouth every 6 (six) hours as needed. [facility] hydrOXYzine 50 mg tablet 3-0 -23 00:00: 00 Yes 50mg Take 1 tablet by mouth every 6 (six) hours as needed. [facility] mirtazapine 15 mg tablet 3-0 5-12 00:00: 00 Yes 15mg Take 1 tablet by mouth at bedtime. [facility] mirtazapine 15 mg tablet 3-0 5-12 00:00: 00 Yes 15mg Take 1 tablet by mouth at bedtime. [facility] mirtazapine 15 mg tablet 3-0 5-12 00:00: 00 Yes 15mg Take 1 tablet by mouth at bedtime. [facility] mirtazapine 15 mg tablet 3-0 5-12 00:00: 00 Yes 15mg Take 1 tablet by mouth at bedtime. [facility] mirtazapine 15 mg tablet 3-0 5-12 00:00: 00 Yes 15mg Take 1 tablet by mouth at bedtime. [facility] mirtazapine 15 mg tablet 3-0 -12 00:00: 00 Yes 15mg Take 1 tablet by mouth at bedtime. [facility] mirtazapine 15 mg tablet 3-0 -12 00:00: 00 Yes 15mg Take 1 tablet by mouth at bedtime. [facility] mirtazapine 15 mg tablet 3-0 -12 00:00: 00 Yes 15mg Take 1 tablet by mouth at bedtime. [facility] mirtazapine 15 mg tablet 3-0 -12 00:00: 00 Yes 15mg Take 1 tablet by mouth at bedtime. [facility] meloxicam 15 mg tablet 3-0 -09 00:00: 00 Yes 15mg Take 1 tablet by mouth in the morning. [facility] meloxicam 15 mg tablet 3-0 -09 00:00: 00 Yes 15mg Take 1 tablet by mouth in the morning. [facility] meloxicam 15 mg tablet 3-0 - 00:00: 00 Yes 15mg Take 1 tablet by mouth in the morning. [facility] meloxicam 15 mg tablet 3-0 - 00:00: 00 Yes 15mg Take 1 tablet by mouth in the morning. [facility] meloxicam 15 mg tablet 3-0 -09 00:00: 00 Yes 15mg Take 1 tablet by mouth in the morning. [facility] meloxicam 15 mg tablet 2022-0 09-18 00:00: 00 Yes 15mg Take 1 tablet by mouth in the morning. [facility] meloxicam 15 mg tablet 0 09-18 00:00: 00 Yes 15mg Take 1 tablet by mouth in the morning. [facility] meloxicam 15 mg tablet 0 09-18 00:00: 00 Yes 15mg Take 1 tablet by mouth in the morning. [facility] 20[facility]-0 09-18 00:00: 00 Yes 15mg Take 1 tablet by mouth in the morning. [facility] mel[facility]am 15 mg tablet 2022-0 09-18 00:00: 00 Yes 15mg Take 1 tablet by mouth in the morning. [facility] verapamil SR 120 mg ER tablet 2022-0 09-17 00:00: 00 Yes 120mg Take 1 tablet by mouth in the morning. [facility] 120 mg ER tablet 2022-0 09-17 00:00: 00 Yes 120mg Take 1 tablet by mouth in the morning. [facility] ver[facility]amil [facility] 120 mg ER tablet 2022-0 09-17 00:00: 00 Yes 120mg Take 1 tablet by mouth in the morning. [facility] verapamil SR 120 mg ER tablet 2022-0 09-17 00:00: 00 Yes 120mg Take 1 tablet by mouth in the morning. [facility] ver[facility]amil [facility] 120 mg ER tablet 2022-0 09-17 00:00: 00 Yes 120mg Take 1 tablet by mouth in the morning. [facility] verapamil SR 120 mg ER tablet 2022-0 09-17 00:00: 00 Yes 120mg Take 1 tablet by mouth in the morning. [facility] verapamil SR 120 mg ER tablet 2022-0 09-17 00:00: 00 Yes 120mg Take 1 tablet by mouth in the morning. [facility] verapamil SR 120 mg ER tablet 2022-0 08 00:00: 00 Yes 120mg Take 1 tablet by mouth in the morning. [facility] verapamil SR 120 mg ER tablet 2022-0 5-08 00:00: 00 Yes 120mg Take 1 tablet by mouth in the morning. [facility] verapamil SR 120 mg ER tablet 2022-0 5-08 00:00: 00 Yes 120mg Take 1 tablet by mouth in the morning. [facility] OLANZapine 10 mg tablet 3-0 27 00:00: 00 Yes 10mg Take 1 tablet by mouth in the morning. [facility] cloNIDine 0.1 mg tablet 3-0 27 00:00: 00 Yes TAKE 1-2 TABLETS BY MOUTH AT BEDTIME NEEDED FOR SLEEP AND ANXIETY [facility] OLANZ[facility] 10 mg tablet 3-0 27 00:00: 00 Yes 10mg Take 1 tablet by mouth in the morning. [facility] cloNIDine 0.1 mg tablet 3-0 27 00:00: 00 Yes TAKE 1-2 TABLETS BY MOUTH AT BEDTIME NEEDED FOR SLEEP AND ANXIETY [facility] OLANZapine 10 mg tablet 3-0 27 00:00: 00 Yes 10mg Take 1 tablet by mouth in the morning. [facility] cloNIDine 0.1 mg tablet 3-0 27 00:00: 00 Yes TAKE 1-2 TABLETS BY MOUTH AT BEDTIME NEEDED FOR SLEEP AND ANXIETY [facility] OLANZapine 10 mg tablet 3-0 27 00:00: 00 Yes 10mg Take 1 tablet by mouth in the morning. [facility] cloNIDine 0.1 mg tablet 3-0 27 00:00: 00 Yes TAKE 1-2 TABLETS BY MOUTH AT BEDTIME NEEDED FOR SLEEP AND ANXIETY [facility] OLANZapine 10 mg tablet 3-0 27 00:00: 00 Yes 10mg Take 1 tablet by mouth in the morning. [facility] cloNIDine 0.1 mg tablet 3-0 27 00:00: 00 Yes TAKE 1-2 TABLETS BY MOUTH AT BEDTIME NEEDED FOR SLEEP AND ANXIETY [facility] OLANZapine 10 mg tablet 3-0 27 00:00: 00 Yes 10mg Take 1 tablet by mouth in the morning. [facility] cloNIDine 0.1 mg tablet 09-06 00:00: 00 Yes TAKE 1-2 TABLETS BY MOUTH AT BEDTIME NEEDED FOR SLEEP AND ANXIETY [facility] OLANZapine 10 mg tablet 09-06 00:00: 00 Yes 10mg Take 1 tablet by mouth in the morning. [facility] cloNIDine 0.1 mg tablet 09-06 00:00: 00 Yes TAKE 1-2 TABLETS BY MOUTH AT BEDTIME NEEDED FOR SLEEP AND ANXIETY [facility] OLANZapine 10 mg tablet 09-06 00:00: 00 Yes 10mg Take 1 tablet by mouth in the morning. [facility] cloNIDine 0.1 mg tablet 09-06 00:00: 00 Yes TAKE 1-2 TABLETS BY MOUTH AT BEDTIME NEEDED FOR SLEEP AND ANXIETY [facility] OLANZapine 10 mg tablet 09-06 00:00: 00 Yes 10mg Take 1 tablet by mouth in the morning. [facility] cloNIDine 0.1 mg tablet 09-06 00:00: 00 Yes TAKE 1-2 TABLETS BY MOUTH AT BEDTIME NEEDED FOR SLEEP AND ANXIETY [facility] OLANZapine 10 mg tablet 09-06 00:00: 00 Yes 10mg Take 1 tablet by mouth in the morning. [facility] cloNIDine 0.1 mg tablet 09-06 00:00: 00 Yes TAKE 1-2 TABLETS BY MOUTH AT BEDTIME NEEDED FOR SLEEP AND ANXIETY [facility] NaCl 0.9% (NS) bolus infusion 1,000 mL 09-05 18:15: 00 09-05 18:08 :00 No 1000mL at 999 mL/hr, 1,000 mL, IV Infusion, ONCE, 1 dose, On Sat09/05/22 at 1315, STAT [facility] acetaminoph en (TYLENOL) tablet 650 mg 09-05 17:30: 00 09-05 17:24 :00 No 650mg 650 mg, Oral, ONCE, 1 dose, On Sat09/05/22 at 1230, [place] [facility] ondansetron (ZOFRAN (PF)) injection 4 mg 09-05 17:15: 00 09-05 17:23 :00 No 4mg 4 mg, Slow IV Push, ONCE, 1 dose, On Sat09/05/22 at 1215, [place] [facility] magnesium sulfate in water 2 gram/50 mL (4 %) infusion 2 g 09-05 16:15: 00 09-05 16:10 :00 No 2g 2 g, IV Piggyback, Administer over 30 Minutes, ONCE, 1 dose, On Sat09/05/22 at 1115, Routine [facility] diphenhydrA MINE (BENADRYL) injection 25 mg 09-05 16:00: 00 09-05 16:01 :00 No 25mg 25 mg, Slow IV Push, ONCE, 1 dose, On Sat09/05/22 at 1100, STAT [facility] ketorolac (TORADOL) injection 30 mg 09-05 15:30: 00 09-05 14:38 :00 No 30mg 30 mg, Slow IV Push, ONCE, 1 dose, On Sat09/05/22 at 1030, Routine [facility] NaCl 0.9% (NS) bolus infusion 1,000 mL 09-05 15:00: 00 09-05 17:12 :00 No 1000mL at 999 mL/hr, 1,000 mL, IV Infusion, ONCE, 1 dose, On Sat09/05/22 at 1000, STAT [facility] methylpredn isolone sod succ (SOLU-MEDRO L) injection 125 mg 09-05 14:45: 00 09-05 14:35 :00 No 125mg 125 mg, Intravenou s, ONCE, 1 dose, On Sat09/05/22 at 0945, 2 mL [facility] butalbital- acetaminoph en-caff (ESGIC) 50-325-40 mg tablet 1 tablet 09-05 14:00: 00 09-05 14:34 :00 No 1{tbl} 1 tablet, Oral, ONCE, 1 dose, On Sat09/05/22 at 0900, [place] [facility] diphenhydrA MINE (BENADRYL) injection 25 mg 09-05 14:00: 00 09-05 14:39 :00 No 25mg 25 mg, Slow IV Push, ONCE, 1 dose, On Sat09/05/22 at 0900, STAT [facility] proMETHazin e (PHENERGAN) 12.5 mg in NaCl 0.9% (NS) 50 mL IV piggyback 09-05 14:00: 00 09-05 14:40 :00 No 12.5mg 12.5 mg, IV Piggyback, ONCE, 1 dose, On Sat09/05/22 at 0900, [place] [facility] carvediloL 25 mg tablet 09-05 00:00: 00 Yes [id number] 25mg Take 1 tablet by mouth in the morning and 1 tablet in the evening. Take with meals. [facility] losartan 50 mg tablet 09-05 00:00: 00 Yes [id number] 50mg Take 1 tablet by mouth in the morning and 1 tablet in the evening. [facility] carvediloL 25 mg tablet 09-05 00:00: 00 Yes [id number] 25mg Take 1 tablet by mouth in the morning and 1 tablet in the evening. Take with meals. [facility] losartan 50 mg tablet 09-05 00:00: 00 Yes [id number] 50mg Take 1 tablet by mouth in the morning and 1 tablet in the evening. [facility] carvediloL 25 mg tablet 09-05 00:00: 00 Yes [id number] 25mg Take 1 tablet by mouth in the morning and 1 tablet in the evening. Take with meals. [facility] losartan 50 mg tablet 09-05 00:00: 00 Yes [id number] 50mg Take 1 tablet by mouth in the morning and 1 tablet in the evening. [facility] carvediloL 25 mg tablet 09-05 00:00: 00 Yes [id number] 25mg Take 1 tablet by mouth in the morning and 1 tablet in the evening. Take with meals. [facility] losartan 50 mg tablet 3-0 26 00:00: 00 Yes [id number] 50mg Take 1 tablet by mouth in the morning and 1 tablet in the evening. [facility] carvediloL 25 mg tablet 3-0 26 00:00: 00 Yes [id number] 25mg Take 1 tablet by mouth in the morning and 1 tablet in the evening. Take with meals. [facility] losartan 50 mg tablet 3-0 26 00:00: 00 Yes [id number] 50mg Take 1 tablet by mouth in the morning and 1 tablet in the evening. [facility] carvediloL 25 mg tablet 3-0 26 00:00: 00 Yes [id number] 25mg Take 1 tablet by mouth in the morning and 1 tablet in the evening. Take with meals. [facility] losartan 50 mg tablet 3-0 26 00:00: 00 Yes [id number] 50mg Take 1 tablet by mouth in the morning and 1 tablet in the evening. [facility] carvediloL 25 mg tablet 3-0 09-05 00:00: 00 Yes [id number] 25mg Take 1 tablet by mouth in the morning and 1 tablet in the evening. Take with meals. [facility] losartan 50 mg tablet 3-0 26 00:00: 00 Yes [id number] 50mg Take 1 tablet by mouth in the morning and 1 tablet in the evening. [facility] carvediloL 25 mg tablet 3-0 26 00:00: 00 Yes [id number] 25mg Take 1 tablet by mouth in the morning and 1 tablet in the evening. Take with meals. [facility] losartan 50 mg tablet 3-0 26 00:00: 00 Yes [id number] 50mg Take 1 tablet by mouth in the morning and 1 tablet in the evening. [facility] carvediloL 25 mg tablet 3-0 -26 00:00: 00 Yes [id number] 25mg Take 1 tablet by mouth in the morning and 1 tablet in the evening. Take with meals. [facility] losartan 50 mg tablet 3-0 26 00:00: 00 Yes [id number] 50mg Take 1 tablet by mouth in the morning and 1 tablet in the evening. [facility] carvediloL 25 mg tablet 3-0 09-05 00:00: 00 Yes [id number] 25mg Take 1 tablet by mouth in the morning and 1 tablet in the evening. Take with meals. [facility] losartan 50 mg tablet 3-0 09-05 00:00: 00 Yes [id number] 50mg Take 1 tablet by mouth in the morning and 1 tablet in the evening. [facility] carvediloL 25 mg tablet 3-0 09-05 00:00: 00 Yes [id number] 25mg Take 1 tablet by mouth in the morning and 1 tablet in the evening. Take with meals. [facility] losartan 50 mg tablet 3-0 09-05 00:00: 00 Yes [id number] 50mg Take 1 tablet by mouth in the morning and 1 tablet in the evening. [facility] carvediloL 25 mg tablet 3-0 09-05 00:00: 00 Yes [id number] 25mg Take 1 tablet by mouth in the morning and 1 tablet in the evening. Take with meals. [facility] losartan 50 mg tablet 3-0 26 00:00: 00 Yes [id number] 50mg Take 1 tablet by mouth in the morning and 1 tablet in the evening. [facility] carvediloL 25 mg tablet 3-0 09-05 00:00: 00 Yes [id number] 25mg Take 1 tablet by mouth in the morning and 1 tablet in the evening. Take with meals. [facility] losartan 50 mg tablet 3-0 26 00:00: 00 Yes [id number] 50mg Take 1 tablet by mouth in the morning and 1 tablet in the evening. [facility] carvediloL 25 mg tablet 3-0 26 00:00: 00 Yes [id number] 25mg Take 1 tablet by mouth in the morning and 1 tablet in the evening. Take with meals. [facility] losartan 50 mg tablet 3-0 26 00:00: 00 Yes [id number] 50mg Take 1 tablet by mouth in the morning and 1 tablet in the evening. [facility] carvediloL 25 mg tablet 2022-0 09-05 00:00: 00 Yes [id number] 25mg Take 1 tablet by mouth in the morning and 1 tablet in the evening. Take with meals. [facility] losartan 50 mg tablet 2022-0 09-05 00:00: 00 Yes [id number] 50mg Take 1 tablet by mouth in the morning and 1 tablet in the evening. [facility] ibuprofen 800 mg tablet 2022-0 08-05 00:00: 00 Yes 800mg Take 1 tablet by mouth 3 (three) times daily as needed. [facility] cyclobenzap rine 10 mg tablet 2022-0 08-05 00:00: 00 Yes 10mg Take 1 tablet by mouth 3 (three) times daily as needed. [facility] ibuprofen 800 mg tablet 2022-0 08-05 00:00: 00 Yes 800mg Take 1 tablet by mouth 3 (three) times daily as needed. [facility] cyclobenzap rine 10 mg tablet 2022-0 08-05 00:00: 00 Yes 10mg Take 1 tablet by mouth 3 (three) times daily as needed. [facility] ibuprofen 800 mg tablet 2022-0 08-05 00:00: 00 Yes 800mg Take 1 tablet by mouth 3 (three) times daily as needed. [facility] cyclobenzap rine 10 mg tablet 2022-0 08-05 00:00: 00 Yes 10mg Take 1 tablet by mouth 3 (three) times daily as needed. [facility] ibuprofen 800 mg tablet 2022-0 26 00:00: 00 Yes 800mg Take 1 tablet by mouth 3 (three) times daily as needed. [facility] cyclobenzap rine 10 mg tablet 3-0 26 00:00: 00 Yes 10mg Take 1 tablet by mouth 3 (three) times daily as needed. [facility] ibuprofen 800 mg tablet 3-0 26 00:00: 00 Yes 800mg Take 1 tablet by mouth 3 (three) times daily as needed. [facility] cyclobenzap rine 10 mg tablet 3-0 26 00:00: 00 Yes 10mg Take 1 tablet by mouth 3 (three) times daily as needed. [facility] ibuprofen 800 mg tablet 3-0 326 00:00: 00 Yes 800mg Take 1 tablet by mouth 3 (three) times daily as needed. [facility] cyclobenzap rine 10 mg tablet 3-0 326 00:00: 00 Yes 10mg Take 1 tablet by mouth 3 (three) times daily as needed. [facility] ibuprofen 800 mg tablet 3-0 326 00:00: 00 Yes 800mg Take 1 tablet by mouth 3 (three) times daily as needed. [facility] cyclobenzap rine 10 mg tablet 3-0 26 00:00: 00 Yes 10mg Take 1 tablet by mouth 3 (three) times daily as needed. [facility] ibuprofen 800 mg tablet 3-0 26 00:00: 00 Yes 800mg Take 1 tablet by mouth 3 (three) times daily as needed. [facility] cyclobenzap rine 10 mg tablet 3-0 26 00:00: 00 Yes 10mg Take 1 tablet by mouth 3 (three) times daily as needed. [facility] ibuprofen 800 mg tablet 3-0 26 00:00: 00 Yes 800mg Take 1 tablet by mouth 3 (three) times daily as needed. [facility] cyclobenzap rine 10 mg tablet 3-0 26 00:00: 00 Yes 10mg Take 1 tablet by mouth 3 (three) times daily as needed. [facility] ibuprofen 800 mg tablet 3-0 326 00:00: 00 Yes 800mg Take 1 tablet by mouth 3 (three) times daily as needed. [facility] cyclobenzap rine 10 mg tablet 3-0 326 00:00: 00 Yes 10mg Take 1 tablet by mouth 3 (three) times daily as needed. [facility] ibuprofen 800 mg tablet 3-0 3-26 00:00: 00 Yes 800mg Take 1 tablet by mouth 3 (three) times daily as needed. [facility] cyclobenzap rine 10 mg tablet 2023-0 326 00:00: 00 Yes 10mg Take 1 tablet by mouth 3 (three) times daily as needed. [facility] ibuprofen 800 mg tablet 3-0 26 00:00: 00 Yes 800mg Take 1 tablet by mouth 3 (three) times daily as needed. [facility] cyclobenzap rine 10 mg tablet 3-0 26 00:00: 00 Yes 10mg Take 1 tablet by mouth 3 (three) times daily as needed. [facility] ibuprofen 800 mg tablet 3-0 26 00:00: 00 Yes 800mg Take 1 tablet by mouth 3 (three) times daily as needed. [facility] cyclobenzap rine 10 mg tablet 3-0 26 00:00: 00 Yes 10mg Take 1 tablet by mouth 3 (three) times daily as needed. [facility] ibuprofen 800 mg tablet 3-0 26 00:00: 00 Yes 800mg Take 1 tablet by mouth 3 (three) times daily as needed. [facility] cyclobenzap rine 10 mg tablet 3-0 26 00:00: 00 Yes 10mg Take 1 tablet by mouth 3 (three) times daily as needed. [facility] ibuprofen 800 mg tablet 3-0 26 00:00: 00 Yes 800mg Take 1 tablet by mouth 3 (three) times daily as needed. [facility] cyclobenzap rine 10 mg tablet 3-0 26 00:00: 00 Yes 10mg Take 1 tablet by mouth 3 (three) times daily as needed. [facility] ibuprofen 800 mg tablet 3-0 26 00:00: 00 Yes 800mg Take 1 tablet by mouth 3 (three) times daily as needed. [facility] cyclobenzap rine 10 mg tablet 3-0 26 00:00: 00 Yes 10mg Take 1 tablet by mouth 3 (three) times daily as needed. [facility] ibuprofen 800 mg tablet 3-0 326 00:00: 00 Yes 800mg Take 1 tablet by mouth 3 (three) times daily as needed. [facility] cyclobenzap rine 10 mg tablet 3-0 3-26 00:00: 00 Yes 10mg Take 1 tablet by mouth 3 (three) times daily as needed. [facility] ibuprofen 800 mg tablet 08-05 00:00: 00 Yes 800mg Take 1 tablet by mouth 3 (three) times daily as needed. [facility] cyclobenzap rine 10 mg tablet 08-05 00:00: 00 Yes 10mg Take 1 tablet by mouth 3 (three) times daily as needed. [facility] maalox:diph enhydrAMINE :lidocaine 2 % viscous 1:1:1 ([facility]) oral suspension 15 mL 08-01 00:45: 00 08-01 00:44 :00 No 15mL 15 mL, Oral, ONCE, 1 dose, On Sat07/31/22 at 1945, [place] [facility] ketorolac (TORADOL) injection 15 mg 08-01 00:15: 00 08-01 00:44 :00 No 15mg 15 mg, Slow IV Push, ONCE, 1 dose, On Sat07/31/22 at 1915, Routine [facility] ondansetron (ZOFRAN (PF)) injection 4 mg 08-01 00:15: 00 08-01 00:46 :00 No 4mg 4 mg, Slow IV Push, ONCE, 1 dose, On Sat07/31/22 at 1915, [place] [facility] famotidine (PEPCID (PF)) injection 20 mg 08-01 00:15: 00 08-01 00:46 :00 No 20mg 20 mg, Slow IV Push, ONCE, 1 dose, On Sat07/31/22 at 191, [facility] ondansetron 4 mg disintegrat ing tablet 07-31 00:00: 00 Yes [id number] 4mg Take 1 tablet by mouth every 8 (eight) hours as needed for Nausea and Vomiting (N/V). [facility] sucralfate 1 gram tablet 07-31 00:00: 00 Yes [id number] 1g Take 1 tablet by mouth before meals and at bedtime. [facility] ondansetron 4 mg disintegrat ing tablet 3-0 3-21 00:00: 00 Yes [id number] 4mg Take 1 tablet by mouth every 8 (eight) hours as needed for Nausea and Vomiting (N/V). [facility] sucralfate 1 gram tablet 3-0 3-21 00:00: 00 Yes [id number] 1g Take 1 tablet by mouth before meals and at bedtime. [facility] ondansetron 4 mg disintegrat ing tablet 3-0 3-21 00:00: 00 Yes [id number] 4mg Take 1 tablet by mouth every 8 (eight) hours as needed for Nausea and Vomiting (N/V). [facility] sucralfate 1 gram tablet 3-0 -21 00:00: 00 Yes [id number] 1g Take 1 tablet by mouth before meals and at bedtime. [facility] ondansetron 4 mg disintegrat ing tablet 2022-0 3-21 00:00: 00 Yes [id number] 4mg Take 1 tablet by mouth every 8 (eight) hours as needed for Nausea and Vomiting (N/V). [facility] sucralfate 1 gram tablet 2022-0 -21 00:00: 00 Yes [id number] 1g Take 1 tablet by mouth before meals and at bedtime. [facility] ondansetron 4 mg disintegrat ing tablet 3-0 3-21 00:00: 00 Yes [id number] 4mg Take 1 tablet by mouth every 8 (eight) hours as needed for Nausea and Vomiting (N/V). [facility] sucralfate 1 gram tablet 3-0 3-21 00:00: 00 Yes [id number] 1g Take 1 tablet by mouth before meals and at bedtime. [facility] ondansetron 4 mg disintegrat ing tablet 3-0 3-21 00:00: 00 Yes [id number] 4mg Take 1 tablet by mouth every 8 (eight) hours as needed for Nausea and Vomiting (N/V). [facility] sucralfate 1 gram tablet 3-0 3-21 00:00: 00 Yes [id number] 1g Take 1 tablet by mouth before meals and at bedtime. [facility] ondansetron 4 mg disintegrat ing tablet 3-0 3-21 00:00: 00 Yes [id number] 4mg Take 1 tablet by mouth every 8 (eight) hours as needed for Nausea and Vomiting (N/V). [facility] sucralfate 1 gram tablet 2022-0 3-21 00:00: 00 Yes [id number] 1g Take 1 tablet by mouth before meals and at bedtime. [facility] ondansetron 4 mg disintegrat ing tablet 3-0 -21 00:00: 00 Yes [id number] 4mg Take 1 tablet by mouth every 8 (eight) hours as needed for Nausea and Vomiting (N/V). [facility] sucralfate 1 gram tablet 2022-0 -21 00:00: 00 Yes [id number] 1g Take 1 tablet by mouth before meals and at bedtime. [facility] ondansetron 4 mg disintegrat ing tablet 2022-0 - 00:00: 00 Yes [id number] 4mg Take 1 tablet by mouth every 8 (eight) hours as needed for Nausea and Vomiting (N/V). [facility] sucralfate 1 gram tablet 2022-0 -21 00:00: 00 Yes [id number] 1g Take 1 tablet by mouth before meals and at bedtime. [facility] ondansetron 4 mg disintegrat ing tablet 3-0 3-21 00:00: 00 Yes [id number] 4mg Take 1 tablet by mouth every 8 (eight) hours as needed for Nausea and Vomiting (N/V). [facility] sucralfate 1 gram tablet 3-0 3-21 00:00: 00 Yes [id number] 1g Take 1 tablet by mouth before meals and at bedtime. [facility] ondansetron 4 mg disintegrat ing tablet 3-0 3-21 00:00: 00 Yes [id number] 4mg Take 1 tablet by mouth every 8 (eight) hours as needed for Nausea and Vomiting (N/V). [facility] sucralfate 1 gram tablet 3-0 3-21 00:00: 00 Yes [id number] 1g Take 1 tablet by mouth before meals and at bedtime. [facility] ondansetron 4 mg disintegrat ing tablet 2022-0 3-21 00:00: 00 Yes [id number] 4mg Take 1 tablet by mouth every 8 (eight) hours as needed for Nausea and Vomiting (N/V). [facility] sucralfate 1 gram tablet 2022-0 -21 00:00: 00 Yes [id number] 1g Take 1 tablet by mouth before meals and at bedtime. [facility] ondansetron 4 mg disintegrat ing tablet 2022-0 - 00:00: 00 Yes [id number] 4mg Take 1 tablet by mouth every 8 (eight) hours as needed for Nausea and Vomiting (N/V). [facility] sucralfate 1 gram tablet 2022-0 07-31 00:00: 00 Yes [id number] 1g Take 1 tablet by mouth before meals and at bedtime. [facility] ondansetron 4 mg disintegrat ing tablet 2022-0 - 00:00: 00 Yes [id number] 4mg Take 1 tablet by mouth every 8 (eight) hours as needed for Nausea and Vomiting (N/V). [facility] sucralfate 1 gram tablet 2022-0 21 00:00: 00 Yes [id number] 1g Take 1 tablet by mouth before meals and at bedtime. [facility] ondansetron 4 mg disintegrat ing tablet 2022-0 3-21 00:00: 00 Yes [id number] 4mg Take 1 tablet by mouth every 8 (eight) hours as needed for Nausea and Vomiting (N/V). [facility] sucralfate 1 gram tablet 3-0 3-21 00:00: 00 Yes [id number] 1g Take 1 tablet by mouth before meals and at bedtime. [facility] ondansetron 4 mg disintegrat ing tablet 3-0 3-21 00:00: 00 Yes [id number] 4mg Take 1 tablet by mouth every 8 (eight) hours as needed for Nausea and Vomiting (N/V). [facility] sucralfate 1 gram tablet 3-0 3-21 00:00: 00 Yes [id number] 1g Take 1 tablet by mouth before meals and at bedtime. [facility] ondansetron 4 mg disintegrat ing tablet 2022-0 07-31 00:00: 00 Yes [id number] 4mg Take 1 tablet by mouth every 8 (eight) hours as needed for Nausea and Vomiting (N/V). [facility] sucralfate 1 gram tablet 2022-0 07-31 00:00: 00 Yes [id number] 1g Take 1 tablet by mouth before meals and at bedtime. [facility] ondansetron 4 mg disintegrat ing tablet 2022-0 07-31 00:00: 00 Yes [id number] 4mg Take 1 tablet by mouth every 8 (eight) hours as needed for Nausea and Vomiting (N/V). [facility] sucralfate 1 gram tablet 2022-0 07-31 00:00: 00 Yes [id number] 1g Take 1 tablet by mouth before meals and at bedtime. [facility] ondansetron 4 mg disintegrat ing tablet 2022-0 07-31 00:00: 00 Yes [id number] 4mg Take 1 tablet by mouth every 8 (eight) hours as needed for Nausea and Vomiting (N/V). [facility] sucralfate 1 gram tablet 2022-0 07-31 00:00: 00 Yes [id number] 1g Take 1 tablet by mouth before meals and at bedtime. [facility] ondansetron 4 mg disintegrat ing tablet 2022-0 07-31 00:00: 00 05-19 00:00 :00 No [id number] 4mg Take 1 tablet by mouth every 8 (eight) hours as needed for Nausea and Vomiting (N/V). [facility] sucralfate 1 gram tablet 2022-0 07-31 00:00: 00 05-19 00:00 :00 No [id number] 1g Take 1 tablet by mouth before meals and at bedtime. [facility] pantoprazol e 40 mg EC tablet 3-0 3-21 00:00: 00 08-15 04:59 :00 No [id number] 40mg Take 1 tablet by mouth in the morning for 14 days. [facility] pantoprazol e 40 mg EC tablet 3-0 3-21 00:00: 00 05 04:59 :00 No [id number] 40mg Take 1 tablet by mouth in the morning for 14 days. [facility] tamsulosin 0.4 mg 24 hr capsule 3-0 3-15 00:00: 00 Yes .4mg Take 1 capsule by mouth in the morning. [facility] tamsulosin 0.4 mg 24 hr capsule 3-0 3-15 00:00: 00 Yes .4mg Take 1 capsule by mouth in the morning. [facility] tamsulosin 0.4 mg 24 hr capsule 2023-0 3-15 00:00: 00 Yes .4mg Take 1 capsule by mouth in the morning. [facility] tamsulosin 0.4 mg 24 hr capsule 3-0 3-15 00:00: 00 Yes .4mg Take 1 capsule by mouth in the morning. [facility] tamsulosin 0.4 mg 24 hr capsule 3-0 3-15 00:00: 00 Yes .4mg Take 1 capsule by mouth in the morning. [facility] tamsulosin 0.4 mg 24 hr capsule 2023-0 3-15 00:00: 00 Yes .4mg Take 1 capsule by mouth in the morning. [facility] tamsulosin 0.4 mg 24 hr capsule 2023-0 3-15 00:00: 00 Yes .4mg Take 1 capsule by mouth in the morning. [facility] tamsulosin 0.4 mg 24 hr capsule 2023-0 3-15 00:00: 00 Yes .4mg Take 1 capsule by mouth in the morning. [facility] tamsulosin 0.4 mg 24 hr capsule 2023-0 3-15 00:00: 00 Yes .4mg Take 1 capsule by mouth in the morning. [facility] tamsulosin 0.4 mg 24 hr capsule 2023-0 3-15 00:00: 00 Yes .4mg Take 1 capsule by mouth in the morning. [facility] 24 hr capsule 2023-0 3-15 00:00: 00 Yes .4mg Take 1 capsule by mouth in the morning. [facility] tamsulosin 0.4 mg 24 hr capsule 2023-0 3-15 00:00: 00 Yes .4mg Take 1 capsule by mouth in the morning. [facility] tamsulosin 0.4 mg 24 hr capsule 2023-0 3-15 00:00: 00 Yes .4mg Take 1 capsule by mouth in the morning. [facility] tamsulosin 0.4 mg 24 hr capsule 2023-0 3-15 00:00: 00 Yes .4mg Take 1 capsule by mouth in the morning. [facility] tamsulosin 0.4 mg 24 hr capsule 2023-0 3-15 00:00: 00 Yes .4mg Take 1 capsule by mouth in the morning. [facility] tamsulosin 0.4 mg 24 hr capsule 2023-0 3-15 00:00: 00 Yes .4mg Take 1 capsule by mouth in the morning. [facility] tamsulosin 0.4 mg 24 hr capsule 2023-0 3-15 00:00: 00 Yes .4mg Take 1 capsule by mouth in the morning. [facility] tamsulosin 0.4 mg 24 hr capsule 2023-0 3-15 00:00: 00 Yes .4mg Take 1 capsule by mouth in the morning. [facility] traMADoL 50 mg tablet 3-0 3-13 00:00: 00 Yes 50mg Take 1 tablet by mouth. [facility] traMADoL 50 mg tablet 3-0 3-13 00:00: 00 Yes 50mg Take 1 tablet by mouth. [facility] traMADoL 50 mg tablet 3-0 3-13 00:00: 00 Yes 50mg Take 1 tablet by mouth. [facility] traMADoL 50 mg tablet 3-0 3-13 00:00: 00 Yes 50mg Take 1 tablet by mouth. [facility] traMADoL 50 mg tablet 0 13 00:00: 00 Yes 50mg Take 1 tablet by mouth. [facility] tra[facility]AD[facility] mg tablet 0 13 00:00: 00 Yes 50mg Take 1 tablet by mouth. [facility] traMADoL 50 mg tablet 0 07-23 00:00: 00 Yes 50mg Take 1 tablet by mouth. [facility] traMADoL 50 mg tablet 0 13 00:00: 00 Yes 50mg Take 1 tablet by mouth. [facility] traMADoL 50 mg tablet 0 07-23 00:00: 00 Yes 50mg Take 1 tablet by mouth. [facility] traMADoL 50 mg tablet 0 07-23 00:00: 00 Yes 50mg Take 1 tablet by mouth. [facility] traMADoL 50 mg tablet 0 07-23 00:00: 00 Yes 50mg Take 1 tablet by mouth. [facility] traMADoL 50 mg tablet 0 07-23 00:00: 00 Yes 50mg Take 1 tablet by mouth. [facility] traMADoL 50 mg tablet 0 07-23 00:00: 00 Yes 50mg Take 1 tablet by mouth. [facility] traMADoL 50 mg tablet 0 07-23 00:00: 00 Yes 50mg Take 1 tablet by mouth. [facility] traMADoL 50 mg tablet 0 07-23 00:00: 00 Yes 50mg Take 1 tablet by mouth. [facility] traMADoL 50 mg tablet 0 13 00:00: 00 Yes 50mg Take 1 tablet by mouth. [facility] traMADoL 50 mg tablet 0 13 00:00: 00 Yes 50mg Take 1 tablet by mouth. [facility] traMADoL 50 mg tablet 0 13 00:00: 00 Yes 50mg Take 1 tablet by mouth. [facility] ibuprofen 600 mg tablet 2022-0 305 00:00: 00 Yes [id number] 600mg Take 1 tablet by mouth every 6 (six) hours as needed for Pain (scale 4-6). [facility] ibuprofen 600 mg tablet 3-0 3-05 00:00: 00 Yes [id number] 600mg Take 1 tablet by mouth every 6 (six) hours as needed for Pain (scale 4-6). [facility] ibuprofen 600 mg tablet 3-0 3-05 00:00: 00 Yes [id number] 600mg Take 1 tablet by mouth every 6 (six) hours as needed for Pain (scale 4-6). [facility] ibuprofen 600 mg tablet 3-0 3-05 00:00: 00 07-31 00:00 :00 No [id number] 600mg Take 1 tablet by mouth every 6 (six) hours as needed for Pain (scale 4-6). [facility] citalopram 10 mg tablet 3-0 2-17 00:00: 00 Yes 10mg Take 1 tablet by mouth in the morning. [facility] QUEtiapine 400 mg tablet 3-0 2-17 00:00: 00 Yes [facility] gabapentin 600 mg tablet 3-0 2-17 00:00: 00 Yes [facility] citalopram 10 mg tablet 3-0 2-17 00:00: 00 Yes 10mg Take 1 tablet by mouth in the morning. [facility] QUEtiapine 400 mg tablet 3-0 2-17 00:00: 00 Yes [facility] gabapentin 600 mg tablet 3-0 2-17 00:00: 00 Yes [facility] citalopram 10 mg tablet 3-0 2-17 00:00: 00 Yes 10mg Take 1 tablet by mouth in the morning. [facility] QUEtiapine 400 mg tablet 3-0 2-17 00:00: 00 Yes [facility] gabapentin 600 mg tablet 3-0 2-17 00:00: 00 Yes [facility] citalopram 10 mg tablet 3-0 2-17 00:00: 00 Yes 10mg Take 1 tablet by mouth in the morning. [facility] QUEtiapine 400 mg tablet 2023-0 2-17 00:00: 00 Yes [facility] gabapentin 600 mg tablet 3-0 2-17 00:00: 00 Yes [facility] citalopram 10 mg tablet 3-0 2-17 00:00: 00 Yes 10mg Take 1 tablet by mouth in the morning. [facility] QUEtiapine 400 mg tablet 3-0 2-17 00:00: 00 Yes [facility] gabapentin 600 mg tablet 3-0 2-17 00:00: 00 Yes [facility] citalopram 10 mg tablet 3-0 2-17 00:00: 00 Yes 10mg Take 1 tablet by mouth in the morning. [facility] QUEtiapine 400 mg tablet 3-0 2-17 00:00: 00 Yes [facility] gabapentin 600 mg tablet 3-0 2-17 00:00: 00 Yes [facility] citalopram 10 mg tablet 3-0 2-17 00:00: 00 Yes 10mg Take 1 tablet by mouth in the morning. [facility] QUEtiapine 400 mg tablet 3-0 2-17 00:00: 00 Yes [facility] gabapentin 600 mg tablet 3-0 2-17 00:00: 00 Yes [facility] citalopram 10 mg tablet 3-0 2-17 00:00: 00 Yes 10mg Take 1 tablet by mouth in the morning. [facility] QUEtiapine 400 mg tablet 3-0 2-17 00:00: 00 Yes [facility] gabapentin 600 mg tablet 3-0 2-17 00:00: 00 Yes [facility] citalopram 10 mg tablet 3-0 2-17 00:00: 00 Yes 10mg Take 1 tablet by mouth in the morning. [facility] QUEtiapine 400 mg tablet 3-0 2-17 00:00: 00 Yes [facility] gabapentin 600 mg tablet 3-0 2-17 00:00: 00 Yes [facility] citalopram 10 mg tablet 3-0 2-17 00:00: 00 Yes 10mg Take 1 tablet by mouth in the morning. [facility] QUEtiapine 400 mg tablet 2023-0 2-17 00:00: 00 Yes [facility] gabapentin 600 mg tablet 2023-0 2-17 00:00: 00 Yes [facility] citalopram 10 mg tablet 2023-0 2-17 00:00: 00 Yes 10mg Take 1 tablet by mouth in the morning. [facility] QUEtiapine 400 mg tablet 2023-0 2-17 00:00: 00 Yes [facility] gabapentin 600 mg tablet 3-0 2-17 00:00: 00 Yes [facility] citalopram 10 mg tablet 3-0 2-17 00:00: 00 Yes 10mg Take 1 tablet by mouth in the morning. [facility] QUEtiapine 400 mg tablet 3-0 2-17 00:00: 00 Yes [facility] gabapentin 600 mg tablet 3-0 2-17 00:00: 00 Yes [facility] citalopram 10 mg tablet 2023-0 2-17 00:00: 00 Yes 10mg Take 1 tablet by mouth in the morning. [facility] QUEtiapine 400 mg tablet 3-0 2-17 00:00: 00 Yes [facility] gabapentin 600 mg tablet 2023-0 2-17 00:00: 00 Yes [facility] citalopram 10 mg tablet 2023-0 2-17 00:00: 00 Yes 10mg Take 1 tablet by mouth in the morning. [facility] QUEtiapine 400 mg tablet 2023-0 2-17 00:00: 00 Yes [facility] gabapentin 600 mg tablet 2023-0 2-17 00:00: 00 Yes [facility] citalopram 10 mg tablet 2023-0 2-17 00:00: 00 Yes 10mg Take 1 tablet by mouth in the morning. [facility] QUEtiapine 400 mg tablet 2023-0 2-17 00:00: 00 Yes [facility] gabapentin 600 mg tablet 2023-0 2-17 00:00: 00 Yes [facility] citalopram 10 mg tablet 3-0 2-17 00:00: 00 Yes 10mg Take 1 tablet by mouth in the morning. [facility] QUEtiapine 400 mg tablet 3-0 2-17 00:00: 00 Yes [facility] gabapentin 600 mg tablet 3-0 2-17 00:00: 00 Yes [facility] citalopram 10 mg tablet 3-0 2-17 00:00: 00 Yes 10mg Take 1 tablet by mouth in the morning. [facility] QUEtiapine 400 mg tablet 3-0 2-17 00:00: 00 Yes [facility] gabapentin 600 mg tablet 3-0 2-17 00:00: 00 Yes [facility] citalopram 10 mg tablet 3-0 2-17 00:00: 00 Yes 10mg Take 1 tablet by mouth in the morning. [facility] QUEtiapine 400 mg tablet 3-0 2-17 00:00: 00 Yes [facility] gabapentin 600 mg tablet 3-0 2-17 00:00: 00 Yes [facility] methylPREDN ISolone (MEDROL, ANABELA,) 4 mg tablets 2022-0 2-11 00:00: 00 Yes [id number] Take by mouth SEE-INSTRU CTIONS. follow package directions [facility] methylPREDN ISolone (MEDROL, ANABELA,) 4 mg tablets 3-0 2-11 00:00: 00 Yes [id number] Take by mouth SEE-INSTRU CTIONS. follow package directions [facility] methylPREDN ISolone (MEDROL, ANABELA,) 4 mg tablets 3-0 2-11 00:00: 00 Yes [id number] Take by mouth SEE-INSTRU CTIONS. follow package directions [facility] methylPREDN ISolone (MEDROL, ANABELA,) 4 mg tablets 3-0 2-11 00:00: 00 Yes [id number] Take by mouth SEE-INSTRU CTIONS. follow package directions [facility] methylPREDN ISolone (MEDROL, ANABELA,) 4 mg tablets 3-0 2-11 00:00: 00 Yes [id number] Take by mouth SEE-INSTRU CTIONS. follow package directions [facility] methylPREDN ISolone (MEDROL, ANABELA,) 4 mg tablets 0 2- 00:00: 00 Yes [id number] Take by mouth SEE-INSTRU CTIONS. follow package directions [facility] methylPREDN ISolone (MEDROL, ANABELA,) 4 mg tablets 2022-0 2- 00:00: 00 Yes [id number] Take by mouth SEE-INSTRU CTIONS. follow package directions [facility] methylPREDN ISolone (MEDROL, ANABELA,) 4 mg tablets 0 2 00:00: 00 Yes [id number] Take by mouth SEE-INSTRU CTIONS. follow package directions [facility] methylPREDN ISolone (MEDROL, ANABELA,) 4 mg tablets 0 2 00:00: 00 Yes [id number] Take by mouth SEE-INSTRU CTIONS. follow package directions [facility] methylPREDN ISolone (MEDROL, ANABELA,) 4 mg tablets 0 06-23 00:00: 00 Yes [id number] Take by mouth SEE-INSTRU CTIONS. follow package directions [facility] methylPREDN ISolone (MEDROL, ANABELA,) 4 mg tablets 0 2 00:00: 00 Yes [id number] Take by mouth SEE-INSTRU CTIONS. follow package directions [facility] methylPREDN ISolone (MEDROL, ANABELA,) 4 mg tablets 0 2- 00:00: 00 Yes [id number] Take by mouth SEE-INSTRU CTIONS. follow package directions [facility] methylPREDN ISolone (MEDROL, ANABELA,) 4 mg tablets 0 2 00:00: 00 Yes [id number] Take by mouth SEE-INSTRU CTIONS. follow package directions [facility] methylPREDN ISolone (MEDROL, ANABELA,) 4 mg tablets 2022-0 211 00:00: 00 Yes [id number] Take by mouth SEE-INSTRU CTIONS. follow package directions [facility] bromphenira mine-pseudo ephedrine-D M (BROMFED DM) 2-30-10 mg/5 mL syrup 2-11 00:00: 00 07-04 05:59 :00 No [id number] 5mL Take 5 mL by mouth 4 (four) times daily as needed for Cold symptoms for up to 10 days. [facility] methocarbam oL 750 mg tablet 06-23 00:00: 00 07-01 05:59 :00 No [id number] 750mg Take 1 tablet by mouth 4 (four) times daily for 7 days. [facility] magnesium sulfate in water 2 gram/50 mL (4 %) infusion 2 g 2021-05 21:00: 00 05-05 21:15 :00 No 2g 2 g, IV Piggyback, Administer over 15 Minutes, ONCE, 1 dose, On 05/05/22 at 1500, [facility] butalbital- acetaminoph en-caff (ESGIC) 50-325-40 mg tablet 1 tablet 2021-05 20:15: 00 05-05 20:56 :00 No 1{tbl} 1 tablet, Oral, ONCE, 1 dose, On 05/05/22 at 1415, [facility] dexamethaso ne sod phos PF injection 10 mg 2021-05 20:15: 00 05-05 21:00 :00 No 10mg 10 mg, Slow IV Push, ONCE, 1 dose, On 05/05/22 at 1415, 1 mL [facility] NaCl 0.9% (NS) bolus infusion 1,000 mL 2021-05 20:00: 00 05-05 21:45 :00 No 1000mL at 999 mL/hr, 1,000 mL, IV Infusion, ONCE, 1 dose, On 05/05/22 at 1400, [facility] diphenhydrA MINE (BENADRYL) injection 25 mg 2021-05 19:15: 00 05-05 19:42 :00 No 25mg 25 mg, Slow IV Push, ONCE, 1 dose, On 05/05/22 at 1315, STAT [facility] ondansetron (ZOFRAN (PF)) injection 4 mg 2021-05 19:15: 00 05-05 19:45 :00 No 4mg 4 mg, Slow IV Push, ONCE, 1 dose, On 05/05/22 at 1315, [place] [facility] ketorolac (TORADOL) injection 30 mg 2021-05 19:15: 00 05-05 19:44 :00 No 30mg 30 mg, Slow IV Push, ONCE, 1 dose, On 05/05/22 at 1315, Routine [facility] butalbital- acetaminoph en-caff 50-325-40 mg tablet 2021-05 00:00: 00 Yes [id number] 1{tbl} Take 1 tablet by mouth every 4 (four) hours as needed for Pain (scale 7-10). [facility] butalbital- acetaminoph en-caff 50-325-40 mg tablet 2021-05 00:00: 00 Yes [id number] 1{tbl} Take 1 tablet by mouth every 4 (four) hours as needed for Pain (scale 7-10). [facility] butalbital- acetaminoph en-caff 50-325-40 mg tablet 2021-05 00:00: 00 Yes [id number] 1{tbl} Take 1 tablet by mouth every 4 (four) hours as needed for Pain (scale 7-10). [facility] butalbital- acetaminoph en-caff 50-325-40 mg tablet 2021-05 00:00: 00 Yes [id number] 1{tbl} Take 1 tablet by mouth every 4 (four) hours as needed for Pain (scale 7-10). [facility] butalbital- acetaminoph en-caff 50-325-40 mg tablet 2021-05 00:00: 00 Yes [id number] 1{tbl} Take 1 tablet by mouth every 4 (four) hours as needed for Pain (scale 7-10). [facility] butalbital- acetaminoph en-caff 50-325-40 mg tablet 2021-05 00:00: 00 Yes [id number] 1{tbl} Take 1 tablet by mouth every 4 (four) hours as needed for Pain (scale 7-10). [facility]- acetaminoph en-caff 50-325-40 mg tablet 2021-05 00:00: 00 Yes [id number] 1{tbl} Take 1 tablet by mouth every 4 (four) hours as needed for Pain (scale 7-10). [facility] butalbital- acetaminoph en-caff 50-325-40 mg tablet 2021-05 00:00: 00 Yes [id number] 1{tbl} Take 1 tablet by mouth every 4 (four) hours as needed for Pain (scale 7-10). [facility] butalbital- acetaminoph en-caff 50-325-40 mg tablet 2021-05 00:00: 00 Yes [id number] 1{tbl} Take 1 tablet by mouth every 4 (four) hours as needed for Pain (scale 7-10). [facility] butalbital- acetaminoph en-caff 50-325-40 mg tablet 2021-05 00:00: 00 Yes [id number] 1{tbl} Take 1 tablet by mouth every 4 (four) hours as needed for Pain (scale 7-10). [facility] butalbital- acetaminoph en-caff 50-325-40 mg tablet 2021-05 00:00: 00 Yes [id number] 1{tbl} Take 1 tablet by mouth every 4 (four) hours as needed for Pain (scale 7-10). [facility] butalbital- acetaminoph en-caff 50-325-40 mg tablet 2021-05 00:00: 00 Yes [id number] 1{tbl} Take 1 tablet by mouth every 4 (four) hours as needed for Pain (scale 7-10). [facility] butalbital- acetaminoph en-caff 50-325-40 mg tablet 2021-05 00:00: 00 Yes [id number] 1{tbl} Take 1 tablet by mouth every 4 (four) hours as needed for Pain (scale 7-10). [facility] [facility]- acetaminoph en-caff 50-325-40 mg tablet 2021-05 00:00: 00 Yes [id number] 1{tbl} Take 1 tablet by mouth every 4 (four) hours as needed for Pain (scale 7-10). [facility] butalbital- acetaminoph en-caff 50-325-40 mg tablet 2021-05 00:00: 00 Yes [id number] 1{tbl} Take 1 tablet by mouth every 4 (four) hours as needed for Pain (scale 7-10). [facility] butalbital- acetaminoph en-caff 50-325-40 mg tablet 2021-05 00:00: 00 Yes [id number] 1{tbl} Take 1 tablet by mouth every 4 (four) hours as needed for Pain (scale 7-10). [facility] HYDROcodone -acetaminop hen (NORCO) 10-325 mg tablet 1 tablet 2021-05 16:30: 00 04-26 15:23 :00 No 1{tbl} 1 tablet, Oral, ONCE, 1 dose, On Kathie 04/26/22 at 1030, Routine [facility] diphenhydrA MINE (BENADRYL) tablet 25 mg 2021-05 15:45: 00 04-26 15:53 :00 No 25mg 25 mg, Oral, ONCE, 1 dose, On Kathie 04/26/22 at 0945, [place] [facility] NaCl 0.9% (NS) bolus infusion 1,000 mL 2021-05 15:45: 00 04-26 15:55 :00 No 1000mL at 999 mL/hr, 1,000 mL, IV Piggyback, ONCE, 1 dose, On [facility] 04/26/22 at 0945, STAT [facility] ondansetron (ZOFRAN (PF)) injection 4 mg 2021-05 14:45: 00 04-26 14:52 :00 No 4mg 4 mg, Slow IV Push, ONCE, 1 dose, On Kathie 04/26/22 at 0845, Routine [facility] cephALEXin (KEFLEX) 500 mg capsule 2021-05 00:00: 00 05-04 05:59 :00 No [id number] 500mg Take 1 capsule by mouth in the morning and 1 capsule at noon and 1 capsule in the evening. Do all this for 7 days. [facility] ondansetron (ZOFRAN) 4 mg tablet 2021-05 00:00: 00 Yes 4mg Take 1 tablet by mouth every 8 (eight) hours as needed for Nausea and Vomiting (N/V). [facility] ondansetron (ZOFRAN) 4 mg tablet 2021-05 00:00: 00 Yes 4mg Take 1 tablet by mouth every 8 (eight) hours as needed for Nausea and Vomiting (N/V). [facility] ondansetron (ZOFRAN) 4 mg tablet 2021-05 00:00: 00 Yes 4mg Take 1 tablet by mouth every 8 (eight) hours as needed for Nausea and Vomiting (N/V). [facility] ondansetron (ZOFRAN) 4 mg tablet 2021-05 00:00: 00 Yes 4mg Take 1 tablet by mouth every 8 (eight) hours as needed for Nausea and Vomiting (N/V). [facility] ondansetron (ZOFRAN) 4 mg tablet 2021-05 00:00: 00 Yes 4mg Take 1 tablet by mouth every 8 (eight) hours as needed for Nausea and Vomiting (N/V). [facility] ondansetron (ZOFRAN) 4 mg tablet 2021-05 00:00: 00 Yes 4mg Take 1 tablet by mouth every 8 (eight) hours as needed for Nausea and Vomiting (N/V). [facility] ondansetron (ZOFRAN) 4 mg tablet 2021-05 00:00: 00 Yes 4mg Take 1 tablet by mouth every 8 (eight) hours as needed for Nausea and Vomiting (N/V). [facility] ondansetron (ZOFRAN) 4 mg tablet 2021-05 00:00: 00 Yes 4mg Take 1 tablet by mouth every 8 (eight) hours as needed for Nausea and Vomiting (N/V). [facility] ondansetron (ZOFRAN) 4 mg tablet 2021-05 00:00: 00 Yes 4mg Take 1 tablet by mouth every 8 (eight) hours as needed for Nausea and Vomiting (N/V). [facility] ondansetron (ZOFRAN) 4 mg tablet 2021-05 00:00: 00 Yes 4mg Take 1 tablet by mouth every 8 (eight) hours as needed for Nausea and Vomiting (N/V). [facility] ondansetron (ZOFRAN) 4 mg tablet 2021-05 00:00: 00 Yes 4mg Take 1 tablet by mouth every 8 (eight) hours as needed for Nausea and Vomiting (N/V). [facility] ondansetron (ZOFRAN) 4 mg tablet 2021-05 00:00: 00 Yes 4mg Take 1 tablet by mouth every 8 (eight) hours as needed for Nausea and Vomiting (N/V). [facility] ondansetron (ZOFRAN) 4 mg tablet 2021-05 00:00: 00 07-31 00:00 :00 No 4mg Take 1 tablet by mouth every 8 (eight) hours as needed for Nausea and Vomiting (N/V). [facility] galcanezuma b-gnlm prefilled (EMGALITY) subcutaneou s injection 2021-05 00:00: 00 Yes [id number] 120mg inject 120 mg under the skin once every month. [facility] galcanezuma b-gnlm prefilled (EMGALITY) subcutaneou s injection 2021-05 00:00: 00 Yes [id number] 120mg inject 120 mg under the skin once every month. [facility] galcanezuma b-gnlm prefilled (EMGALITY) subcutaneou s injection 2021-05 00:00: 00 Yes [id number] 120mg inject 120 mg under the skin once every month. [facility] galcanezuma b-gnlm prefilled (EMGALITY) subcutaneou s injection 2021-05 00:00: 00 Yes [id number] 120mg inject 120 mg under the skin once every month. [facility] galcanezuma b-gnlm prefilled (EMGALITY) subcutaneou s injection 2021-05 00:00: 00 Yes [id number] 120mg inject 120 mg under the skin once every month. [facility] galcanezuma b-gnlm prefilled (EMGALITY) subcutaneou s injection 2021-05 00:00: 00 Yes [id number] 120mg inject 120 mg under the skin once every month. [facility] galcanezuma b-gnlm prefilled (EMGALITY) subcutaneou s injection 2021-05 00:00: 00 Yes [id number] 120mg inject 120 mg under the skin once every month. [facility] galcanezuma b-gnlm prefilled (EMGALITY) subcutaneou s injection 2021-05 00:00: 00 Yes [id number] 120mg inject 120 mg under the skin once every month. [facility] galcanezuma b-gnlm prefilled (EMGALITY) subcutaneou s injection 2021-05 00:00: 00 Yes [id number] 120mg inject 120 mg under the skin once every month. [facility] galcanezuma b-gnlm prefilled (EMGALITY) subcutaneou s injection 2021-05 00:00: 00 Yes [id number] 120mg inject 120 mg under the skin once every month. [facility] galcanezuma b-gnlm prefilled (EMGALITY) subcutaneou s injection 2021-05 00:00: 00 Yes [id number] 120mg inject 120 mg under the skin once every month. [facility] galcanezuma b-gnlm prefilled (EMGALITY) subcutaneou s injection 2021-05 00:00: 00 Yes [id number] 120mg inject 120 mg under the skin once every month. [facility] galcanezuma b-gnlm prefilled (EMGALITY) subcutaneou s injection 2021-05 00:00: 00 Yes [id number] 120mg inject 120 mg under the skin once every month. [facility] galcanezuma b-gnlm prefilled (EMGALITY) subcutaneou s injection 2021-05 00:00: 00 Yes [id number] 120mg inject 120 mg under the skin once every month. [facility] galcanezuma b-gnlm prefilled (EMGALITY) subcutaneou s injection 2021-05 00:00: 00 Yes [id number] 120mg inject 120 mg under the skin once every month. [facility] galcanezuma b-gnlm prefilled (EMGALITY) subcutaneou s injection 2021-05 00:00: 00 Yes [id number] 120mg inject 120 mg under the skin once every month. [facility] galcanezuma b-gnlm prefilled (EMGALITY) subcutaneou s injection 2021-05 00:00: 00 Yes [id number] 120mg inject 120 mg under the skin once every month. [facility] galcanezuma b-gnlm prefilled (EMGALITY) subcutaneou s injection 2021-05 00:00: 00 Yes [id number] 120mg inject 120 mg under the skin once every month. [facility] galcanezuma b-gnlm prefilled (EMGALITY) subcutaneou s injection 2021-05 00:00: 00 Yes [id number] 120mg inject 120 mg under the skin once every month. [facility] galcanezuma b-gnlm prefilled (EMGALITY) subcutaneou s injection 2021-05 00:00: 00 Yes [id number] 120mg inject 120 mg under the skin once every month. [facility] galcanezuma b-gnlm prefilled (EMGALITY) subcutaneou s injection 2021-05 00:00: 00 Yes [id number] 120mg inject 120 mg under the skin once every month. [facility] galcanezuma b-gnlm prefilled (EMGALITY) subcutaneou s injection 2021-05 00:00: 00 Yes [id number] 120mg inject 120 mg under the skin once every month. [facility] galcanezuma b-gnlm prefilled (EMGALITY) subcutaneou s injection 2021-05 00:00: 00 Yes [id number] 120mg inject 120 mg under the skin once every month. [facility] galcanezuma b-gnlm prefilled (EMGALITY) subcutaneou s injection 2021-05 00:00: 00 Yes [id number] 120mg inject 120 mg under the skin once every month. [facility] galcanezuma b-gnlm prefilled (EMGALITY) subcutaneou s injection 2021-05 00:00: 00 Yes [id number] 120mg inject 120 mg under the skin once every month. [facility] galcanezuma b-gnlm prefilled (EMGALITY) subcutaneou s injection 2021-05 00:00: 00 Yes [id number] 120mg inject 120 mg under the skin once every month. [facility] galcanezuma b-gnlm prefilled (EMGALITY) subcutaneou s injection 2021-05 00:00: 00 Yes [id number] 120mg inject 120 mg under the skin once every month. [facility] galcanezuma b-gnlm prefilled (EMGALITY) subcutaneou s injection 2021-05 00:00: 00 Yes [id number] 120mg inject 120 mg under the skin once every month. [facility] galcanezuma b-gnlm prefilled (EMGALITY) subcutaneou s injection 2021-05 00:00: 00 Yes [id number] 120mg inject 120 mg under the skin once every month. [facility] galcanezuma b-gnlm prefilled (EMGALITY) subcutaneou s injection 2021-05 00:00: 00 Yes [id number] 120mg inject 120 mg under the skin once every month. [facility] galcanezuma b-gnlm prefilled (EMGALITY) subcutaneou s injection 2021-05 00:00: 00 Yes [id number] 120mg inject 120 mg under the skin once every month. [facility] galcanezuma b-gnlm prefilled (EMGALITY) subcutaneou s injection 2021-05 00:00: 00 Yes [id number] 120mg inject 120 mg under the skin once every month. [facility] galcanezuma b-gnlm prefilled (EMGALITY) subcutaneou s injection 2021-05 00:00: 00 Yes [id number] 120mg inject 120 mg under the skin once every month. [facility] galcanezuma b-gnlm prefilled (EMGALITY) subcutaneou s injection 2021-05 00:00: 00 Yes [id number] 120mg inject 120 mg under the skin once every month. [facility] galcanezuma b-gnlm prefilled (EMGALITY) subcutaneou s injection 2021-05 00:00: 00 Yes [id number] 120mg inject 120 mg under the skin once every month. [facility] galcanezuma b-gnlm prefilled (EMGALITY) subcutaneou s injection 2021-05 00:00: 00 Yes [id number] 120mg inject 120 mg under the skin once every month. [facility] methocarbam oL (ROBAXIN) injection 1,000 mg 2021-05 04:00: 00 Yes 1000mg 1,000 mg, Intravenou s, Q8H, First dose on 04/07/22 at 2200, Until Discontinu ed, Routine [facility] ketorolac (TORADOL) injection 30 mg 2021-05 00:45: 00 04-07 23:45 :00 No 30mg 30 mg, Slow IV Push, ONCE, 1 dose, On 04/07/22 at 1845, Routine [facility] HYDROcodone -acetaminop hen (NORCO) 10-325 mg tablet 1 tablet 2021-05 00:30: 00 04-07 23:45 :00 No 1{tbl} 1 tablet, Oral, ONCE NOW, 1 dose, On 04/07/22 at 1830, Routine [facility] diphenhydrA MINE (BENADRYL) injection 12.5 mg 2021-05 23:45: 00 04-07 23:46 :00 No 12.5mg 12.5 mg, Slow IV Push, ONCE, 1 dose, On 04/07/22 at 1745, STAT [facility] butorphanol (STADOL) injection 1 mg 2021-05 23:15: 00 04-07 22:48 :00 No 1mg 1 mg, IV Push, ONCE, 1 dose, On 04/07/22 at 1715, Routine [facility] NaCl 0.9% (NS) bolus infusion 1,000 mL 2021-05 23:15: 00 04-07 23:49 :00 No 1000mL at 999 mL/hr, 1,000 mL, IV Infusion, ONCE, 1 dose, On 04/07/22 at 1715, [place] [facility] ketorolac (TORADOL) injection 15 mg 2021-05 19:30: 00 03-24 18:45 :00 No 15mg 15 mg, Slow IV Push, ONCE, 1 dose, On 03/24/22 at 1330, Routine [facility] butorphanol (STADOL) injection 1 mg 2021-05 18:00: 00 03-24 17:26 :00 No 1mg 1 mg, Intravenou s, ONCE, 1 dose, On 03/24/22 at 1200, Routine [facility] proMETHazin e (PHENERGAN) 25 mg in NaCl 0.9% (NS) 50 mL IV piggyback 2021-05 18:00: 00 03-24 18:13 :00 No 25mg 25 mg, IV Piggyback, ONCE, 1 dose, On 03/24/22 at 1200, [place] [facility] butorphanol (STADOL) injection 1 mg 2021-05 17:15: 00 03-24 16:26 :00 No 1mg 1 mg, IV Push, ONCE, 1 dose, On 03/24/22 at 1115, Routine [facility] diphenhydrA MINE (BENADRYL) injection 25 mg 2021-05 15:30: 00 03-24 15:40 :00 No 25mg 25 mg, Slow IV Push, ONCE, 1 dose, On 03/24/22 at 0930, STAT [facility] ondansetron (ZOFRAN (PF)) injection 4 mg 2021-05 15:30: 00 03-24 14:25 :00 No 4mg 4 mg, Slow IV Push, ONCE, 1 dose, On 03/24/22 at 0930, [place] [facility] NaCl 0.9% (NS) IV infusion 1,000 mL 2021-05 15:15: 00 03-24 17:25 :00 No 1000mL at 999 mL/hr, Intravenou s, ONCE, 1 dose, On 03/24/22 at 0915, [facility] magnesium sulfate in water 2 gram/50 mL (4 %) infusion 2 g 2021-05 15:00: 00 03-24 14:47 :00 No 2g 2 g, IV Piggyback, Administer over 20 Minutes, ONCE, 1 dose, On 03/24/22 at 0900, Routine [facility] dexamethaso ne sod phos PF injection 6 mg 2021-05 14:15: 00 03-24 14:14 :00 No 6mg 6 mg, Slow IV Push, ONCE, 1 dose, On 03/24/22 at 0815, 1 mL [facility] diphenhydrA MINE (BENADRYL) injection 25 mg 2021-05 14:15: 00 03-24 14:16 :00 No 25mg 25 mg, Slow IV Push, ONCE, 1 dose, On 03/24/22 at 0815, STAT [facility] ALBUTEROL INHALE 2021-05 07:58: 13 03-24 00:00 :00 No [facility] rizatriptan 10 mg tablet 2021-05 00:00: 00 Yes [id number] 10mg Take 1 tablet by mouth as needed for Migraine. May repeat in 2 hours if needed [facility] Butalbital- Acetaminoph en-Caff (FIORICET) 50-300-40 mg per capsule 2021-05 00:00: 00 Yes [id number] 1{capsu le} Take 1 capsule by mouth every 6 (six) hours as needed for Other (headache) . [facility] magnesium oxide 200 mg magnesium Tab 2021-05 00:00: 00 Yes [id number] 200mg Take 200 mg by mouth 2 (two) times daily. Indication s: headache [facility] rizatriptan 10 mg tablet 2021-05 00:00: 00 Yes [id number] 10mg Take 1 tablet by mouth as needed for Migraine. May repeat in 2 hours if needed [facility] Butalbital- Acetaminoph en-Caff (FIORICET) 50-300-40 mg per capsule 2021-05 00:00: 00 Yes [id number] 1{capsu le} Take 1 capsule by mouth every 6 (six) hours as needed for Other (headache) . [facility] magnesium oxide 200 mg magnesium Tab 2021-05 00:00: 00 Yes [id number] 200mg Take 200 mg by mouth 2 (two) times daily. Indication s: headache [facility] rizatriptan 10 mg tablet 2021-05 00:00: 00 Yes [id number] 10mg Take 1 tablet by mouth as needed for Migraine. May repeat in 2 hours if needed [facility] Butalbital- Acetaminoph en-Caff (FIORICET) 50-300-40 mg per capsule 2021-05 00:00: 00 Yes [id number] 1{capsu le} Take 1 capsule by mouth every 6 (six) hours as needed for Other (headache) . [facility] magnesium oxide 200 mg magnesium Tab 2021-05 00:00: 00 Yes [id number] 200mg Take 200 mg by mouth 2 (two) times daily. Indication s: headache [facility] rizatriptan 10 mg tablet 2021-05 00:00: 00 Yes [id number] 10mg Take 1 tablet by mouth as needed for Migraine. May repeat in 2 hours if needed [facility] Butalbital- Acetaminoph en-Caff (FIORICET) 50-300-40 mg per capsule 2021-05 00:00: 00 Yes [id number] 1{capsu le} Take 1 capsule by mouth every 6 (six) hours as needed for Other (headache) . [facility] rizatriptan 10 mg tablet 2021-05 00:00: 00 Yes [id number] 10mg Take 1 tablet by mouth as needed for Migraine. May repeat in 2 hours if needed [facility] Butalbital- Acetaminoph en-Caff (FIORICET) 50-300-40 mg per capsule 2021-05 00:00: 00 Yes [id number] 1{capsu le} Take 1 capsule by mouth every 6 (six) hours as needed for Other (headache) . [facility] rizatriptan 10 mg tablet 2021-05 00:00: 00 Yes [id number] 10mg Take 1 tablet by mouth as needed for Migraine. May repeat in 2 hours if needed [facility] Butalbital- Acetaminoph en-Caff (FIORICET) 50-300-40 mg per capsule 2021-05 00:00: 00 Yes [id number] 1{capsu le} Take 1 capsule by mouth every 6 (six) hours as needed for Other (headache) . [facility] rizatriptan 10 mg tablet 2021-05 00:00: 00 Yes [id number] 10mg Take 1 tablet by mouth as needed for Migraine. May repeat in 2 hours if needed [facility] Butalbital- Acetaminoph en-Caff (FIORICET) 50-300-40 mg per capsule 2021-05 00:00: 00 Yes [id number] 1{capsu le} Take 1 capsule by mouth every 6 (six) hours as needed for Other (headache) . [facility] rizatriptan 10 mg tablet 2021-05 00:00: 00 Yes [id number] 10mg Take 1 tablet by mouth as needed for Migraine. May repeat in 2 hours if needed [facility] Butalbital- Acetaminoph en-Caff (FIORICET) 50-300-40 mg per capsule 2021-05 00:00: 00 Yes [id number] 1{capsu le} Take 1 capsule by mouth every 6 (six) hours as needed for Other (headache) . [facility] rizatriptan 10 mg tablet 2021-05 00:00: 00 Yes [id number] 10mg Take 1 tablet by mouth as needed for Migraine. May repeat in 2 hours if needed [facility] Butalbital- Acetaminoph en-Caff (FIORICET) 50-300-40 mg per capsule 2021-05 00:00: 00 Yes [id number] 1{capsu le} Take 1 capsule by mouth every 6 (six) hours as needed for Other (headache) . [facility] rizatriptan 10 mg tablet 2021-05 00:00: 00 Yes [id number] 10mg Take 1 tablet by mouth as needed for Migraine. May repeat in 2 hours if needed [facility] Butalbital- Acetaminoph en-Caff (FIORICET) 50-300-40 mg per capsule 2021-05 00:00: 00 Yes [id number] 1{capsu le} Take 1 capsule by mouth every 6 (six) hours as needed for Other (headache) . [facility] rizatriptan 10 mg tablet 2021-05 00:00: 00 Yes [id number] 10mg Take 1 tablet by mouth as needed for Migraine. May repeat in 2 hours if needed [facility] Butalbital- Acetaminoph en-Caff (FIORICET) 50-300-40 mg per capsule 2021-05 00:00: 00 Yes [id number] 1{capsu le} Take 1 capsule by mouth every 6 (six) hours as needed for Other (headache) . [facility] rizatriptan 10 mg tablet 2021-05 00:00: 00 Yes [id number] 10mg Take 1 tablet by mouth as needed for Migraine. May repeat in 2 hours if needed [facility] Butalbital- Acetaminoph en-Caff (FIORICET) 50-300-40 mg per capsule 2021-05 00:00: 00 Yes [id number] 1{capsu le} Take 1 capsule by mouth every 6 (six) hours as needed for Other (headache) . [facility] rizatriptan 10 mg tablet 2021-05 00:00: 00 Yes [id number] 10mg Take 1 tablet by mouth as needed for Migraine. May repeat in 2 hours if needed [facility] Butalbital- Acetaminoph en-Caff (FIORICET) 50-300-40 mg per capsule 2021-05 00:00: 00 Yes [id number] 1{capsu le} Take 1 capsule by mouth every 6 (six) hours as needed for Other (headache) . [facility] rizatriptan 10 mg tablet 2021-05 00:00: 00 Yes [id number] 10mg Take 1 tablet by mouth as needed for Migraine. May repeat in 2 hours if needed [facility] Butalbital- Acetaminoph en-Caff (FIORICET) 50-300-40 mg per capsule 2021-05 00:00: 00 Yes [id number] 1{capsu le} Take 1 capsule by mouth every 6 (six) hours as needed for Other (headache) . [facility] rizatriptan 10 mg tablet 2021-05 00:00: 00 Yes [id number] 10mg Take 1 tablet by mouth as needed for Migraine. May repeat in 2 hours if needed [facility] Butalbital- Acetaminoph en-Caff (FIORICET) 50-300-40 mg per capsule 2021-05 00:00: 00 Yes [id number] 1{capsu le} Take 1 capsule by mouth every 6 (six) hours as needed for Other (headache) . [facility] rizatriptan 10 mg tablet 2021-05 00:00: 00 Yes [id number] 10mg Take 1 tablet by mouth as needed for Migraine. May repeat in 2 hours if needed [facility] Butalbital- Acetaminoph en-Caff (FIORICET) 50-300-40 mg per capsule 2021-05 00:00: 00 Yes [id number] 1{capsu le} Take 1 capsule by mouth every 6 (six) hours as needed for Other (headache) . [facility] rizatriptan 10 mg tablet 2021-05 00:00: 00 Yes [id number] 10mg Take 1 tablet by mouth as needed for Migraine. May repeat in 2 hours if needed [facility] Butalbital- Acetaminoph en-Caff (FIORICET) 50-300-40 mg per capsule 2021-05 00:00: 00 Yes [id number] 1{capsu le} Take 1 capsule by mouth every 6 (six) hours as needed for Other (headache) . [facility] rizatriptan 10 mg tablet 2021-05 00:00: 00 Yes [id number] 10mg Take 1 tablet by mouth as needed for Migraine. May repeat in 2 hours if needed [facility] Butalbital- Acetaminoph en-Caff (FIORICET) 50-300-40 mg per capsule 2021-05 00:00: 00 Yes [id number] 1{capsu le} Take 1 capsule by mouth every 6 (six) hours as needed for Other (headache) . [facility] rizatriptan 10 mg tablet 2021-05 00:00: 00 Yes [id number] 10mg Take 1 tablet by mouth as needed for Migraine. May repeat in 2 hours if needed [facility] Butalbital- Acetaminoph en-Caff (FIORICET) 50-300-40 mg per capsule 2021-05 00:00: 00 Yes [id number] 1{capsu le} Take 1 capsule by mouth every 6 (six) hours as needed for Other (headache) . [facility] rizatriptan 10 mg tablet 2021-05 00:00: 00 Yes [id number] 10mg Take 1 tablet by mouth as needed for Migraine. May repeat in 2 hours if needed [facility] Butalbital- Acetaminoph en-Caff (FIORICET) 50-300-40 mg per capsule 2021-05 00:00: 00 Yes [id number] 1{capsu le} Take 1 capsule by mouth every 6 (six) hours as needed for Other (headache) . [facility] rizatriptan 10 mg tablet 2021-05 00:00: 00 Yes [id number] 10mg Take 1 tablet by mouth as needed for Migraine. May repeat in 2 hours if needed [facility] Butalbital- Acetaminoph en-Caff (FIORICET) 50-300-40 mg per capsule 2021-05 00:00: 00 Yes [id number] 1{capsu le} Take 1 capsule by mouth every 6 (six) hours as needed for Other (headache) . [facility] rizatriptan 10 mg tablet 2021-05 00:00: 00 Yes [id number] 10mg Take 1 tablet by mouth as needed for Migraine. May repeat in 2 hours if needed [facility] Butalbital- Acetaminoph en-Caff (FIORICET) 50-300-40 mg per capsule 2021-05 00:00: 00 Yes [id number] 1{capsu le} Take 1 capsule by mouth every 6 (six) hours as needed for Other (headache) . [facility] rizatriptan 10 mg tablet 2021-05 00:00: 00 Yes [id number] 10mg Take 1 tablet by mouth as needed for Migraine. May repeat in 2 hours if needed [facility] Butalbital- Acetaminoph en-Caff (FIORICET) 50-300-40 mg per capsule 2021-05 00:00: 00 Yes [id number] 1{capsu le} Take 1 capsule by mouth every 6 (six) hours as needed for Other (headache) . [facility] rizatriptan 10 mg tablet 2021-05 00:00: 00 Yes [id number] 10mg Take 1 tablet by mouth as needed for Migraine. May repeat in 2 hours if needed [facility] Butalbital- Acetaminoph en-Caff (FIORICET) 50-300-40 mg per capsule 2021-05 00:00: 00 Yes [id number] 1{capsu le} Take 1 capsule by mouth every 6 (six) hours as needed for Other (headache) . [facility] rizatriptan 10 mg tablet 2021-05 00:00: 00 Yes [id number] 10mg Take 1 tablet by mouth as needed for Migraine. May repeat in 2 hours if needed [facility] Butalbital- Acetaminoph en-Caff (FIORICET) 50-300-40 mg per capsule 2021-05 00:00: 00 Yes [id number] 1{capsu le} Take 1 capsule by mouth every 6 (six) hours as needed for Other (headache) . [facility] rizatriptan 10 mg tablet 2021-05 00:00: 00 Yes [id number] 10mg Take 1 tablet by mouth as needed for Migraine. May repeat in 2 hours if needed [facility] Butalbital- Acetaminoph en-Caff (FIORICET) 50-300-40 mg per capsule 2021-05 00:00: 00 Yes [id number] 1{capsu le} Take 1 capsule by mouth every 6 (six) hours as needed for Other (headache) . [facility] rizatriptan 10 mg tablet 2021-05 00:00: 00 Yes [id number] 10mg Take 1 tablet by mouth as needed for Migraine. May repeat in 2 hours if needed [facility] [facility] Butalbital- Acetaminoph en-Caff (FIORICET) 50-300-40 mg per capsule 2021-05 00:00: 00 Yes [id number] 1{capsu le} Take 1 capsule by mouth every 6 (six) hours as needed for Other (headache) . [facility] rizatriptan 10 mg tablet 2021-05 00:00: 00 Yes [id number] 10mg Take 1 tablet by mouth as needed for Migraine. May repeat in 2 hours if needed [facility] Butalbital- Acetaminoph en-Caff (FIORICET) 50-300-40 mg per capsule 2021-05 00:00: 00 Yes [id number] 1{capsu le} Take 1 capsule by mouth every 6 (six) hours as needed for Other (headache) . [facility] rizatriptan 10 mg tablet 2021-05 00:00: 00 Yes [id number] 10mg Take 1 tablet by mouth as needed for Migraine. May repeat in 2 hours if needed [facility] Butalbital- Acetaminoph en-Caff (FIORICET) 50-300-40 mg per capsule 2021-05 00:00: 00 Yes [id number] 1{capsu le} Take 1 capsule by mouth every 6 (six) hours as needed for Other (headache) . [facility] rizatriptan 10 mg tablet 2021-05 00:00: 00 Yes [id number] 10mg Take 1 tablet by mouth as needed for Migraine. May repeat in 2 hours if needed [facility] Butalbital- Acetaminoph en-Caff (FIORICET) 50-300-40 mg per capsule 2021-05 00:00: 00 Yes [id number] 1{capsu le} Take 1 capsule by mouth every 6 (six) hours as needed for Other (headache) . [facility] rizatriptan 10 mg tablet 2021-05 00:00: 00 Yes [id number] 10mg Take 1 tablet by mouth as needed for Migraine. May repeat in 2 hours if needed [facility] Butalbital- Acetaminoph en-Caff (FIORICET) 50-300-40 mg per capsule 2021-05 00:00: 00 Yes [id number] 1{capsu le} Take 1 capsule by mouth every 6 (six) hours as needed for Other (headache) . [facility] rizatriptan 10 mg tablet 2021-05 00:00: 00 Yes [id number] 10mg Take 1 tablet by mouth as needed for Migraine. May repeat in 2 hours if needed [facility] Butalbital- Acetaminoph en-Caff (FIORICET) 50-300-40 mg per capsule 2021-05 00:00: 00 Yes [id number] 1{capsu le} Take 1 capsule by mouth every 6 (six) hours as needed for Other (headache) . [facility] rizatriptan 10 mg tablet 2021-05 00:00: 00 Yes [id number] 10mg Take 1 tablet by mouth as needed for Migraine. May repeat in 2 hours if needed [facility] Butalbital- Acetaminoph en-Caff (FIORICET) 50-300-40 mg per capsule 2021-05 00:00: 00 Yes [id number] 1{capsu le} Take 1 capsule by mouth every 6 (six) hours as needed for Other (headache) . [facility] rizatriptan 10 mg tablet 2021-05 00:00: 00 Yes [id number] 10mg Take 1 tablet by mouth as needed for Migraine. May repeat in 2 hours if needed [facility] Butalbital- Acetaminoph en-Caff (FIORICET) 50-300-40 mg per capsule 2021-05 00:00: 00 Yes [id number] 1{capsu le} Take 1 capsule by mouth every 6 (six) hours as needed for Other (headache) . [facility] rizatriptan 10 mg tablet 2021-05 00:00: 00 Yes [id number] 10mg Take 1 tablet by mouth as needed for Migraine. May repeat in 2 hours if needed [facility] Butalbital- Acetaminoph en-Caff (FIORICET) 50-300-40 mg per capsule 2021-05 00:00: 00 Yes [id number] 1{capsu le} Take 1 capsule by mouth every 6 (six) hours as needed for Other (headache) . [facility] rizatriptan 10 mg tablet 2021-05 00:00: 00 Yes [id number] 10mg Take 1 tablet by mouth as needed for Migraine. May repeat in 2 hours if needed [facility] Butalbital- Acetaminoph en-Caff (FIORICET) 50-300-40 mg per capsule 2021-05 00:00: 00 Yes [id number] 1{capsu le} Take 1 capsule by mouth every 6 (six) hours as needed for Other (headache) . [facility] rizatriptan 10 mg tablet 2021-05 00:00: 00 Yes [id number] 10mg Take 1 tablet by mouth as needed for Migraine. May repeat in 2 hours if needed [facility] Butalbital- Acetaminoph en-Caff (FIORICET) 50-300-40 mg per capsule 2021-05 00:00: 00 Yes [id number] 1{capsu le} Take 1 capsule by mouth every 6 (six) hours as needed for Other (headache) . [facility] rizatriptan 10 mg tablet 2021-05 00:00: 00 Yes [id number] 10mg Take 1 tablet by mouth as needed for Migraine. May repeat in 2 hours if needed [facility] Butalbital- Acetaminoph en-Caff (FIORICET) 50-300-40 mg per capsule 2021-05 00:00: 00 Yes [id number] 1{capsu le} Take 1 capsule by mouth every 6 (six) hours as needed for Other (headache) . [facility] rizatriptan 10 mg tablet 2021-05 00:00: 00 Yes [id number] 10mg Take 1 tablet by mouth as needed for Migraine. May repeat in 2 hours if needed [facility] Butalbital- Acetaminoph en-Caff (FIORICET) 50-300-40 mg per capsule 2021-05 00:00: 00 Yes [id number] 1{capsu le} Take 1 capsule by mouth every 6 (six) hours as needed for Other (headache) . [facility] rizatriptan 10 mg tablet 2021-05 00:00: 00 Yes [id number] 10mg Take 1 tablet by mouth as needed for Migraine. May repeat in 2 hours if needed [facility] Butalbital- Acetaminoph en-Caff (FIORICET) 50-300-40 mg per capsule 2021-05 00:00: 00 Yes [id number] 1{capsu le} Take 1 capsule by mouth every 6 (six) hours as needed for Other (headache) . [facility] rizatriptan 10 mg tablet 2021-05 00:00: 00 Yes [id number] 10mg Take 1 tablet by mouth as needed for Migraine. May repeat in 2 hours if needed [facility] Butalbital- Acetaminoph en-Caff (FIORICET) 50-300-40 mg per capsule 2021-05 00:00: 00 Yes [id number] 1{capsu le} Take 1 capsule by mouth every 6 (six) hours as needed for Other (headache) . [facility] magnesium oxide 200 mg magnesium Tab 2021-05 00:00: 00 04-07 00:00 :00 No [id number] 200mg Take 200 mg by mouth 2 (two) times daily. Indication s: headache [facility] SUMAtriptan 50 mg tablet 2021-05 00:00: 00 Yes 50mg Take 1 tablet by mouth as needed for Migraine. Take one tablet at onset of migraine, may take another tablet 2 hours after initial dose if no relief with first dose. DO NOT EXCEED 100mg in a 24 hour period. [facility] SUMAtriptan 50 mg tablet 2021-05 00:00: 00 Yes 50mg Take 1 tablet by mouth as needed for Migraine. Take one tablet at onset of migraine, may take another tablet 2 hours after initial dose if no relief with first dose. DO NOT EXCEED 100mg in a 24 hour period. [facility] SUMAtriptan 50 mg tablet 2021-05 00:00: 00 Yes 50mg Take 1 tablet by mouth as needed for Migraine. Take one tablet at onset of migraine, may take another tablet 2 hours after initial dose if no relief with first dose. DO NOT EXCEED 100mg in a 24 hour period. [facility] SUMAtriptan 50 mg tablet 2021-05 00:00: 00 Yes 50mg Take 1 tablet by mouth as needed for Migraine. Take one tablet at onset of migraine, may take another tablet 2 hours after initial dose if no relief with first dose. DO NOT EXCEED 100mg in a 24 hour period. [facility] SUMAtriptan 50 mg tablet 2021-05 00:00: 00 Yes 50mg Take 1 tablet by mouth as needed for Migraine. Take one tablet at onset of migraine, may take another tablet 2 hours after initial dose if no relief with first dose. DO NOT EXCEED 100mg in a 24 hour period. [facility] SUMAtriptan 50 mg tablet 2021-05 00:00: 00 Yes 50mg Take 1 tablet by mouth as needed for Migraine. Take one tablet at onset of migraine, may take another tablet 2 hours after initial dose if no relief with first dose. DO NOT EXCEED 100mg in a 24 hour period. [facility] SUMAtriptan 50 mg tablet 2021-05 00:00: 00 Yes 50mg Take 1 tablet by mouth as needed for Migraine. Take one tablet at onset of migraine, may take another tablet 2 hours after initial dose if no relief with first dose. DO NOT EXCEED 100mg in a 24 hour period. [facility] SUMAtriptan 50 mg tablet 2021-05 00:00: 00 Yes 50mg Take 1 tablet by mouth as needed for Migraine. Take one tablet at onset of migraine, may take another tablet 2 hours after initial dose if no relief with first dose. DO NOT EXCEED 100mg in a 24 hour period. [facility] SUMAtriptan 50 mg tablet 2021-05 00:00: 00 Yes 50mg Take 1 tablet by mouth as needed for Migraine. Take one tablet at onset of migraine, may take another tablet 2 hours after initial dose if no relief with first dose. DO NOT EXCEED 100mg in a 24 hour period. [facility] SUMAtriptan 50 mg tablet 2021-05 00:00: 00 Yes 50mg Take 1 tablet by mouth as needed for Migraine. Take one tablet at onset of migraine, may take another tablet 2 hours after initial dose if no relief with first dose. DO NOT EXCEED 100mg in a 24 hour period. [facility] SUMAtriptan 50 mg tablet 2021-05 00:00: 00 Yes 50mg Take 1 tablet by mouth as needed for Migraine. Take one tablet at onset of migraine, may take another tablet 2 hours after initial dose if no relief with first dose. DO NOT EXCEED 100mg in a 24 hour period. [facility] SUMAtriptan 50 mg tablet 2021-05 00:00: 00 Yes 50mg Take 1 tablet by mouth as needed for Migraine. Take one tablet at onset of migraine, may take another tablet 2 hours after initial dose if no relief with first dose. DO NOT EXCEED 100mg in a 24 hour period. [facility] SUMAtriptan 50 mg tablet 2021-05 00:00: 00 Yes 50mg Take 1 tablet by mouth as needed for Migraine. Take one tablet at onset of migraine, may take another tablet 2 hours after initial dose if no relief with first dose. DO NOT EXCEED 100mg in a 24 hour period. [facility] SUMAtriptan 50 mg tablet 2021-05 00:00: 00 Yes 50mg Take 1 tablet by mouth as needed for Migraine. Take one tablet at onset of migraine, may take another tablet 2 hours after initial dose if no relief with first dose. DO NOT EXCEED 100mg in a 24 hour period. [facility] SUMAtriptan 50 mg tablet 2021-05 00:00: 00 Yes 50mg Take 1 tablet by mouth as needed for Migraine. Take one tablet at onset of migraine, may take another tablet 2 hours after initial dose if no relief with first dose. DO NOT EXCEED 100mg in a 24 hour period. [facility] SUMAtriptan 50 mg tablet 2021-05 00:00: 00 Yes 50mg Take 1 tablet by mouth as needed for Migraine. Take one tablet at onset of migraine, may take another tablet 2 hours after initial dose if no relief with first dose. DO NOT EXCEED 100mg in a 24 hour period. [facility] SUMAtriptan 50 mg tablet 2021-05 00:00: 00 Yes 50mg Take 1 tablet by mouth as needed for Migraine. Take one tablet at onset of migraine, may take another tablet 2 hours after initial dose if no relief with first dose. DO NOT EXCEED 100mg in a 24 hour period. [facility] SUMAtriptan 50 mg tablet 2021-05 00:00: 00 Yes 50mg Take 1 tablet by mouth as needed for Migraine. Take one tablet at onset of migraine, may take another tablet 2 hours after initial dose if no relief with first dose. DO NOT EXCEED 100mg in a 24 hour period. [facility] SUMAtriptan 50 mg tablet 2021-05 00:00: 00 Yes 50mg Take 1 tablet by mouth as needed for Migraine. Take one tablet at onset of migraine, may take another tablet 2 hours after initial dose if no relief with first dose. DO NOT EXCEED 100mg in a 24 hour period. [facility] SUMAtriptan 50 mg tablet 2021-05 00:00: 00 Yes 50mg Take 1 tablet by mouth as needed for Migraine. Take one tablet at onset of migraine, may take another tablet 2 hours after initial dose if no relief with first dose. DO NOT EXCEED 100mg in a 24 hour period. [facility] SUMAtriptan 50 mg tablet 2021-05 00:00: 00 Yes 50mg Take 1 tablet by mouth as needed for Migraine. Take one tablet at onset of migraine, may take another tablet 2 hours after initial dose if no relief with first dose. DO NOT EXCEED 100mg in a 24 hour period. [facility] SUMAtriptan 50 mg tablet 2021-05 00:00: 00 Yes 50mg Take 1 tablet by mouth as needed for Migraine. Take one tablet at onset of migraine, may take another tablet 2 hours after initial dose if no relief with first dose. DO NOT EXCEED 100mg in a 24 hour period. [facility] SUMAtriptan 50 mg tablet 2021-05 00:00: 00 Yes 50mg Take 1 tablet by mouth as needed for Migraine. Take one tablet at onset of migraine, may take another tablet 2 hours after initial dose if no relief with first dose. DO NOT EXCEED 100mg in a 24 hour period. [facility] SUMAtriptan 50 mg tablet 2021-05 00:00: 00 Yes 50mg Take 1 tablet by mouth as needed for Migraine. Take one tablet at onset of migraine, may take another tablet 2 hours after initial dose if no relief with first dose. DO NOT EXCEED 100mg in a 24 hour period. [facility] SUMAtriptan 50 mg tablet 2021-05 00:00: 00 Yes 50mg Take 1 tablet by mouth as needed for Migraine. Take one tablet at onset of migraine, may take another tablet 2 hours after initial dose if no relief with first dose. DO NOT EXCEED 100mg in a 24 hour period. [facility] SUMAtriptan 50 mg tablet 2021-05 00:00: 00 Yes 50mg Take 1 tablet by mouth as needed for Migraine. Take one tablet at onset of migraine, may take another tablet 2 hours after initial dose if no relief with first dose. DO NOT EXCEED 100mg in a 24 hour period. [facility] SUMAtriptan 50 mg tablet 2021-05 00:00: 00 Yes 50mg Take 1 tablet by mouth as needed for Migraine. Take one tablet at onset of migraine, may take another tablet 2 hours after initial dose if no relief with first dose. DO NOT EXCEED 100mg in a 24 hour period. [facility] SUMAtriptan 50 mg tablet 2021-05 00:00: 00 Yes 50mg Take 1 tablet by mouth as needed for Migraine. Take one tablet at onset of migraine, may take another tablet 2 hours after initial dose if no relief with first dose. DO NOT EXCEED 100mg in a 24 hour period. [facility] SUMAtriptan 50 mg tablet 2021-05 00:00: 00 Yes 50mg Take 1 tablet by mouth as needed for Migraine. Take one tablet at onset of migraine, may take another tablet 2 hours after initial dose if no relief with first dose. DO NOT EXCEED 100mg in a 24 hour period. [facility] SUMAtriptan 50 mg tablet 2021-05 00:00: 00 Yes 50mg Take 1 tablet by mouth as needed for Migraine. Take one tablet at onset of migraine, may take another tablet 2 hours after initial dose if no relief with first dose. DO NOT EXCEED 100mg in a 24 hour period. [facility] SUMAtriptan 50 mg tablet 2021-05 00:00: 00 Yes 50mg Take 1 tablet by mouth as needed for Migraine. Take one tablet at onset of migraine, may take another tablet 2 hours after initial dose if no relief with first dose. DO NOT EXCEED 100mg in a 24 hour period. [facility] SUMAtriptan 50 mg tablet 2021-05 00:00: 00 Yes 50mg Take 1 tablet by mouth as needed for Migraine. Take one tablet at onset of migraine, may take another tablet 2 hours after initial dose if no relief with first dose. DO NOT EXCEED 100mg in a 24 hour period. [facility] SUMAtriptan 50 mg tablet 2021-05 00:00: 00 Yes 50mg Take 1 tablet by mouth as needed for Migraine. Take one tablet at onset of migraine, may take another tablet 2 hours after initial dose if no relief with first dose. DO NOT EXCEED 100mg in a 24 hour period. [facility] SUMAtriptan 50 mg tablet 2021-05 00:00: 00 Yes 50mg Take 1 tablet by mouth as needed for Migraine. Take one tablet at onset of migraine, may take another tablet 2 hours after initial dose if no relief with first dose. DO NOT EXCEED 100mg in a 24 hour period. [facility] SUMAtriptan 50 mg tablet 2021-05 00:00: 00 Yes 50mg Take 1 tablet by mouth as needed for Migraine. Take one tablet at onset of migraine, may take another tablet 2 hours after initial dose if no relief with first dose. DO NOT EXCEED 100mg in a 24 hour period. [facility] SUMAtriptan 50 mg tablet 2021-05 00:00: 00 Yes 50mg Take 1 tablet by mouth as needed for Migraine. Take one tablet at onset of migraine, may take another tablet 2 hours after initial dose if no relief with first dose. DO NOT EXCEED 100mg in a 24 hour period. [facility] SUMAtriptan 50 mg tablet 2021-05 00:00: 00 Yes 50mg Take 1 tablet by mouth as needed for Migraine. Take one tablet at onset of migraine, may take another tablet 2 hours after initial dose if no relief with first dose. DO NOT EXCEED 100mg in a 24 hour period. [facility] SUMAtriptan 50 mg tablet 2021-05 00:00: 00 Yes 50mg Take 1 tablet by mouth as needed for Migraine. Take one tablet at onset of migraine, may take another tablet 2 hours after initial dose if no relief with first dose. DO NOT EXCEED 100mg in a 24 hour period. [facility] SUMAtriptan 50 mg tablet 2021-05 00:00: 00 Yes 50mg Take 1 tablet by mouth as needed for Migraine. Take one tablet at onset of migraine, may take another tablet 2 hours after initial dose if no relief with first dose. DO NOT EXCEED 100mg in a 24 hour period. [facility] SUMAtriptan 50 mg tablet 2021-05 00:00: 00 Yes 50mg Take 1 tablet by mouth as needed for Migraine. Take one tablet at onset of migraine, may take another tablet 2 hours after initial dose if no relief with first dose. DO NOT EXCEED 100mg in a 24 hour period. [facility] SUMAtriptan 50 mg tablet 2021-05 00:00: 00 Yes 50mg Take 1 tablet by mouth as needed for Migraine. Take one tablet at onset of migraine, may take another tablet 2 hours after initial dose if no relief with first dose. DO NOT EXCEED 100mg in a 24 hour period. [facility] SUMAtriptan 50 mg tablet 2021-05 00:00: 00 Yes 50mg Take 1 tablet by mouth as needed for Migraine. Take one tablet at onset of migraine, may take another tablet 2 hours after initial dose if no relief with first dose. DO NOT EXCEED 100mg in a 24 hour period. [facility] SUMAtriptan 50 mg tablet 2021-05 00:00: 00 Yes 50mg Take 1 tablet by mouth as needed for Migraine. Take one tablet at onset of migraine, may take another tablet 2 hours after initial dose if no relief with first dose. DO NOT EXCEED 100mg in a 24 hour period. [facility] SUMAtriptan 50 mg tablet 2021-05 00:00: 00 Yes 50mg Take 1 tablet by mouth as needed for Migraine. Take one tablet at onset of migraine, may take another tablet 2 hours after initial dose if no relief with first dose. DO NOT EXCEED 100mg in a 24 hour period. [facility] SUMAtriptan 50 mg tablet 2021-05 00:00: 00 Yes 50mg Take 1 tablet by mouth as needed for Migraine. Take one tablet at onset of migraine, may take another tablet 2 hours after initial dose if no relief with first dose. DO NOT EXCEED 100mg in a 24 hour period. [facility] FENTanyl PF (SUBLIMAZE (PF)) injection 50 mcg 2021-05 15:30: 00 03-15 14:56 :00 No 50ug 50 mcg, Slow IV Push, ONCE, 1 dose, On Kathie 03/15/22 at 1030, Routine [facility] proMETHazin e (PHENERGAN) tablet 25 mg 2021-05 14:45: 00 03-15 14:55 :00 No 25mg 25 mg, Oral, ONCE, 1 dose, On Kathie 03/15/22 at 0945, [place] [facility] FENTanyl PF (SUBLIMAZE (PF)) injection 50 mcg 2021-05 14:45: 00 03-15 13:58 :00 No 50ug 50 mcg, Slow IV Push, ONCE, 1 dose, On Kathie 03/15/22 at 0945, Routine [facility] ondansetron (ZOFRAN (PF)) injection 4 mg 2021-05 14:00: 00 03-15 13:58 :00 No 4mg 4 mg, Slow IV Push, ONCE, 1 dose, On Kathie 03/15/22 at 0900, [place] [facility] ondansetron 4 mg disintegrat ing tablet 2021-05 00:00: 00 Yes [id number] 4mg Take 1 tablet by mouth every 8 (eight) hours as needed for Nausea and Vomiting (N/V). [facility] ketorolac 10 mg tablet 2021-05 00:00: 00 Yes [id number] 10mg Take 1 tablet by mouth every 6 (six) hours as needed for Pain (scale 7-10). [facility] proMETHazin e 25 mg tablet 2021-05 00:00: 00 Yes [id number] 25mg Take 1 tablet by mouth every 6 (six) hours as needed for N/V unresponsi ve to Ondansetro n. [facility] ondansetron 4 mg disintegrat ing tablet 2021-05 00:00: 00 Yes [id number] 4mg Take 1 tablet by mouth every 8 (eight) hours as needed for Nausea and Vomiting (N/V). [facility] ketorolac 10 mg tablet 2021-05 00:00: 00 Yes [id number] 10mg Take 1 tablet by mouth every 6 (six) hours as needed for Pain (scale 7-10). [facility] proMETHazin e 25 mg tablet 2021-05 00:00: 00 Yes [id number] 25mg Take 1 tablet by mouth every 6 (six) hours as needed for N/V unresponsi ve to Ondansetro n. [facility] carvediloL 25 mg tablet 2021-05 00:00: 00 Yes [id number] 25mg Take 1 tablet by mouth in the morning and 1 tablet in the evening. Take with meals. [facility] ondansetron 4 mg disintegrat ing tablet 2021-05 00:00: 00 Yes [id number] 4mg Take 1 tablet by mouth every 8 (eight) hours as needed for Nausea and Vomiting (N/V). [facility] ketorolac 10 mg tablet 2021-05 00:00: 00 Yes [id number] 10mg Take 1 tablet by mouth every 6 (six) hours as needed for Pain (scale 7-10). [facility] proMETHazin e 25 mg tablet 2021-05 00:00: 00 Yes [id number] 25mg Take 1 tablet by mouth every 6 (six) hours as needed for N/V unresponsi ve to Ondansetro n. [facility] carvediloL 25 mg tablet 2021-05 00:00: 00 Yes [id number] 25mg Take 1 tablet by mouth in the morning and 1 tablet in the evening. Take with meals. [facility] ondansetron 4 mg disintegrat ing tablet 2021-05 00:00: 00 Yes [id number] 4mg Take 1 tablet by mouth every 8 (eight) hours as needed for Nausea and Vomiting (N/V). [facility] ketorolac 10 mg tablet 2021-05 00:00: 00 Yes [id number] 10mg Take 1 tablet by mouth every 6 (six) hours as needed for Pain (scale 7-10). [facility] proMETHazin e 25 mg tablet 2021-05 00:00: 00 Yes [id number] 25mg Take 1 tablet by mouth every 6 (six) hours as needed for N/V unresponsi ve to Ondansetro n. [facility] carvediloL 25 mg tablet 2021-05 00:00: 00 Yes [id number] 25mg Take 1 tablet by mouth in the morning and 1 tablet in the evening. Take with meals. [facility] ondansetron 4 mg disintegrat ing tablet 2021-05 00:00: 00 Yes [id number] 4mg Take 1 tablet by mouth every 8 (eight) hours as needed for Nausea and Vomiting (N/V). [facility] ketorolac 10 mg tablet 2021-05 00:00: 00 Yes [id number] 10mg Take 1 tablet by mouth every 6 (six) hours as needed for Pain (scale 7-10). [facility] proMETHazin e 25 mg tablet 2021-05 00:00: 00 Yes [id number] 25mg Take 1 tablet by mouth every 6 (six) hours as needed for N/V unresponsi ve to Ondansetro n. [facility] carvediloL 25 mg tablet 2021-05 00:00: 00 Yes [id number] 25mg Take 1 tablet by mouth in the morning and 1 tablet in the evening. Take with meals. [facility] ondansetron 4 mg disintegrat ing tablet 2021-05 00:00: 00 Yes [id number] 4mg Take 1 tablet by mouth every 8 (eight) hours as needed for Nausea and Vomiting (N/V). [facility] ketorolac 10 mg tablet 2021-05 00:00: 00 Yes [id number] 10mg Take 1 tablet by mouth every 6 (six) hours as needed for Pain (scale 7-10). [facility] proMETHazin e 25 mg tablet 2021-05 00:00: 00 Yes [id number] 25mg Take 1 tablet by mouth every 6 (six) hours as needed for N/V unresponsi ve to Ondansetro n. [facility] carvediloL 25 mg tablet 2021-05 00:00: 00 Yes [id number] 25mg Take 1 tablet by mouth in the morning and 1 tablet in the evening. Take with meals. [facility] ondansetron 4 mg disintegrat ing tablet 2021-05 00:00: 00 Yes [id number] 4mg Take 1 tablet by mouth every 8 (eight) hours as needed for Nausea and Vomiting (N/V). [facility] ketorolac 10 mg tablet 2021-05 00:00: 00 Yes [id number] 10mg Take 1 tablet by mouth every 6 (six) hours as needed for Pain (scale 7-10). [facility] proMETHazin e 25 mg tablet 2021-05 00:00: 00 Yes [id number] 25mg Take 1 tablet by mouth every 6 (six) hours as needed for N/V unresponsi ve to Ondansetro n. [facility] carvediloL 25 mg tablet 2021-05 00:00: 00 Yes [id number] 25mg Take 1 tablet by mouth in the morning and 1 tablet in the evening. Take with meals. [facility] ondansetron 4 mg disintegrat ing tablet 2021-05 00:00: 00 Yes [id number] 4mg Take 1 tablet by mouth every 8 (eight) hours as needed for Nausea and Vomiting (N/V). [facility] ketorolac 10 mg tablet 2021-05 00:00: 00 Yes [id number] 10mg Take 1 tablet by mouth every 6 (six) hours as needed for Pain (scale 7-10). [facility] proMETHazin e 25 mg tablet 2021-05 00:00: 00 Yes [id number] 25mg Take 1 tablet by mouth every 6 (six) hours as needed for N/V unresponsi ve to Ondansetro n. [facility] carvediloL 25 mg tablet 2021-05 00:00: 00 Yes [id number] 25mg Take 1 tablet by mouth in the morning and 1 tablet in the evening. Take with meals. [facility] ondansetron 4 mg disintegrat ing tablet 2021-05 00:00: 00 Yes [id number] 4mg Take 1 tablet by mouth every 8 (eight) hours as needed for Nausea and Vomiting (N/V). [facility] ketorolac 10 mg tablet 2021-05 00:00: 00 Yes [id number] 10mg Take 1 tablet by mouth every 6 (six) hours as needed for Pain (scale 7-10). [facility] proMETHazin e 25 mg tablet 2021-05 00:00: 00 Yes [id number] 25mg Take 1 tablet by mouth every 6 (six) hours as needed for N/V unresponsi ve to Ondansetro n. [facility] carvediloL 25 mg tablet 2021-05 00:00: 00 Yes [id number] 25mg Take 1 tablet by mouth in the morning and 1 tablet in the evening. Take with meals. [facility] ondansetron 4 mg disintegrat ing tablet 2021-05 00:00: 00 Yes [id number] 4mg Take 1 tablet by mouth every 8 (eight) hours as needed for Nausea and Vomiting (N/V). [facility] ketorolac 10 mg tablet 2021-05 00:00: 00 Yes [id number] 10mg Take 1 tablet by mouth every 6 (six) hours as needed for Pain (scale 7-10). [facility] proMETHazin e 25 mg tablet 2021-05 00:00: 00 Yes [id number] 25mg Take 1 tablet by mouth every 6 (six) hours as needed for N/V unresponsi ve to Ondansetro n. [facility] carvediloL 25 mg tablet 2021-05 00:00: 00 Yes [id number] 25mg Take 1 tablet by mouth in the morning and 1 tablet in the evening. Take with meals. [facility] carvediloL 25 mg tablet 2021-05 00:00: 00 Yes [id number] 25mg Take 1 tablet by mouth in the morning and 1 tablet in the evening. Take with meals. [facility] carvediloL 25 mg tablet 2021-05 00:00: 00 Yes [id number] 25mg Take 1 tablet by mouth in the morning and 1 tablet in the evening. Take with meals. [facility] carvediloL 25 mg tablet 2021-05 00:00: 00 Yes [id number] 25mg Take 1 tablet by mouth in the morning and 1 tablet in the evening. Take with meals. [facility] carvediloL 25 mg tablet 2021-05 00:00: 00 Yes [id number] 25mg Take 1 tablet by mouth in the morning and 1 tablet in the evening. Take with meals. [facility] carvediloL 25 mg tablet 2021-05 00:00: 00 Yes [id number] 25mg Take 1 tablet by mouth in the morning and 1 tablet in the evening. Take with meals. [facility] carvediloL 25 mg tablet 2021-05 00:00: 00 Yes [id number] 25mg Take 1 tablet by mouth in the morning and 1 tablet in the evening. Take with meals. [facility] carvediloL 25 mg tablet 2021-05 00:00: 00 Yes [id number] 25mg Take 1 tablet by mouth in the morning and 1 tablet in the evening. Take with meals. [facility] carvediloL 25 mg tablet 2021-05 00:00: 00 Yes [id number] 25mg Take 1 tablet by mouth in the morning and 1 tablet in the evening. Take with meals. [facility] carvediloL 25 mg tablet 2021-05 00:00: 00 Yes [id number] 25mg Take 1 tablet by mouth in the morning and 1 tablet in the evening. Take with meals. [facility] carvediloL 25 mg tablet 2021-05 00:00: 00 Yes [id number] 25mg Take 1 tablet by mouth in the morning and 1 tablet in the evening. Take with meals. [facility] carvediloL 25 mg tablet 2021-05 00:00: 00 Yes [id number] 25mg Take 1 tablet by mouth in the morning and 1 tablet in the evening. Take with meals. [facility] carvediloL 25 mg tablet 2021-05 00:00: 00 Yes [id number] 25mg Take 1 tablet by mouth in the morning and 1 tablet in the evening. Take with meals. [facility] carvediloL 25 mg tablet 2021-05 00:00: 00 Yes [id number] 25mg Take 1 tablet by mouth in the morning and 1 tablet in the evening. Take with meals. [facility] carvediloL 25 mg tablet 2021-05 00:00: 00 Yes [id number] 25mg Take 1 tablet by mouth in the morning and 1 tablet in the evening. Take with meals. [facility] carvediloL 25 mg tablet 2021-05 00:00: 00 Yes [id number] 25mg Take 1 tablet by mouth in the morning and 1 tablet in the evening. Take with meals. [facility] carvediloL 25 mg tablet 2021-05 00:00: 00 Yes [id number] 25mg Take 1 tablet by mouth in the morning and 1 tablet in the evening. Take with meals. [facility] carvediloL 25 mg tablet 2021-05 00:00: 00 Yes [id number] 25mg Take 1 tablet by mouth in the morning and 1 tablet in the evening. Take with meals. [facility] carvediloL 25 mg tablet 2021-05 00:00: 00 Yes [id number] 25mg Take 1 tablet by mouth in the morning and 1 tablet in the evening. Take with meals. [facility] carvediloL 25 mg tablet 2021-05 00:00: 00 Yes [id number] 25mg Take 1 tablet by mouth in the morning and 1 tablet in the evening. Take with meals. [facility] carvediloL 25 mg tablet 2021-05 00:00: 00 Yes [id number] 25mg Take 1 tablet by mouth in the morning and 1 tablet in the evening. Take with meals. [facility] carvediloL 25 mg tablet 2021-05 00:00: 00 Yes [id number] 25mg Take 1 tablet by mouth in the morning and 1 tablet in the evening. Take with meals. [facility] carvediloL 25 mg tablet 2021-05 00:00: 00 09-05 00:00 :00 No [id number] 25mg Take 1 tablet by mouth in the morning and 1 tablet in the evening. Take with meals. [facility] carvediloL 25 mg tablet 2021-05 00:00: 00 09-05 00:00 :00 No [id number] 25mg Take 1 tablet by mouth in the morning and 1 tablet in the evening. Take with meals. [facility] ondansetron 4 mg disintegrat ing tablet 2021-05 00:00: 00 04-07 00:00 :00 No [id number] 4mg Take 1 tablet by mouth every 8 (eight) hours as needed for Nausea and Vomiting (N/V). [facility] ketorolac 10 mg tablet 2021-05 00:00: 00 04-07 00:00 :00 No [id number] 10mg Take 1 tablet by mouth every 6 (six) hours as needed for Pain (scale 7-10). [facility] proMETHazin e 25 mg tablet 2021-05 00:00: 00 04-07 00:00 :00 No [id number] 25mg Take 1 tablet by mouth every 6 (six) hours as needed for N/V unresponsi ve to Ondansetro n. [facility] cephALEXin 500 mg capsule 2021-05 00:00: 00 03-19 05:59 :00 No [id number] 500mg Take 1 capsule by mouth 4 (four) times daily for 3 days. [facility] cephALEXin 500 mg capsule 2021-05 00:00: 00 03-19 05:59 :00 No [id number] 500mg Take 1 capsule by mouth 4 (four) times daily for 3 days. [facility] cephALEXin 500 mg capsule 2021-05 00:00: 00 03-19 05:59 :00 No [id number] 500mg Take 1 capsule by mouth 4 (four) times daily for 3 days. [facility] predniSONE 20 mg tablet 2021-05 00:00: 00 03-15 04:59 :00 No [id number] 20mg Take 1 tablet by mouth in the morning for 2 days. [facility] methocarbam oL (ROBAXIN) tablet 500 mg 2021-05 16:45: 00 03-11 17:08 :00 No 500mg 500 mg, Oral, ONCE, 1 dose, On 03/11/22 at 1200, [place] [facility] dexamethaso ne sod phos PF injection 10 mg 2021-05 16:00: 00 03-11 16:00 :00 No 10mg 10 mg, Slow IV Push, ONCE, 1 dose, On 03/11/22 at 1100, 1 mL [facility] diphenhydrA MINE (BENADRYL) injection 25 mg 2021-05 15:46: 00 03-11 16:00 :00 No 25mg 25 mg, Slow IV Push, ONCE, 1 dose, On 03/11/22 at 1100, STAT [facility] NaCl 0.9% (NS) IV infusion 1,000 mL 2021-05 15:45: 00 03-11 16:04 :00 No 1000mL at 999 mL/hr, Intravenou s, ONCE, 1 dose, On 03/11/22 at 1045, Routine [facility] butalbital- acetaminoph en-caff (ESGIC) 50-325-40 mg tablet 1 tablet 2021-05 15:00: 00 03-11 15:05 :00 No 1{tbl} 1 tablet, Oral, ONCE, 1 dose, [facility] mg 2021-05 14:45: 00 03-11 15:05 :00 No 15mg 15 mg, Slow IV Push, ONCE, 1 dose, On 03/11/22 at 0945, [facility] proMETHazin e (PHENERGAN) 12.5 mg in NaCl 0.9% (NS) 50 mL IV piggyback 2021-05 14:45: 00 03-11 15:04 :00 No 12.5mg 12.5 mg, IV Piggyback, ONCE, 1 dose, On 03/11/22 at 0945, [facility] proMETHazin e 25 mg tablet 2021-05 00:00: 00 Yes [id number] 25mg Take 1 tablet by mouth every 6 (six) hours as needed for Nausea and Vomiting (N/V). [facility] methocarbam oL 500 mg tablet 2021-05 00:00: 00 Yes [id number] 500mg Take 1 tablet by mouth 3 (three) times daily as needed for Pain (scale 7-10). [facility] proMETHazin e 25 mg tablet 2021-05 00:00: 00 Yes [id number] 25mg Take 1 tablet by mouth every 6 (six) hours as needed for Nausea and Vomiting (N/V). [facility] methocarbam oL 500 mg tablet 2021-05 00:00: 00 Yes [id number] 500mg Take 1 tablet by mouth 3 (three) times daily as needed for Pain (scale 7-10). [facility] proMETHazin e 25 mg tablet 2021-05 030 00:00: 00 Yes [id number] 25mg Take 1 tablet by mouth every 6 (six) hours as needed for Nausea and Vomiting (N/V). [facility] methocarbam oL 500 mg tablet 2021-05 030 00:00: 00 Yes [id number] 500mg Take 1 tablet by mouth 3 (three) times daily as needed for Pain (scale 7-10). [facility] proMETHazin e 25 mg tablet 2021-05 030 00:00: 00 Yes [id number] 25mg Take 1 tablet by mouth every 6 (six) hours as needed for Nausea and Vomiting (N/V). [facility] methocarbam oL 500 mg tablet 2021-05 0 00:00: 00 Yes [id number] 500mg Take 1 tablet by mouth 3 (three) times daily as needed for Pain (scale 7-10). [facility] proMETHazin e 25 mg tablet 2021-05 0 00:00: 00 Yes [id number] 25mg Take 1 tablet by mouth every 6 (six) hours as needed for Nausea and Vomiting (N/V). [facility] methocarbam oL 500 mg tablet 2021-05 0 00:00: 00 Yes [id number] 500mg Take 1 tablet by mouth 3 (three) times daily as needed for Pain (scale 7-10). [facility] proMETHazin e 25 mg tablet 2021-05 030 00:00: 00 Yes [id number] 25mg Take 1 tablet by mouth every 6 (six) hours as needed for Nausea and Vomiting (N/V). [facility] methocarbam oL 500 mg tablet 2021-05 030 00:00: 00 Yes [id number] 500mg Take 1 tablet by mouth 3 (three) times daily as needed for Pain (scale 7-10). [facility] proMETHazin e 25 mg tablet 2021-05 030 00:00: 00 Yes [id number] 25mg Take 1 tablet by mouth every 6 (six) hours as needed for Nausea and Vomiting (N/V). [facility] methocarbam oL 500 mg tablet 2021-05 030 00:00: 00 Yes [id number] 500mg Take 1 tablet by mouth 3 (three) times daily as needed for Pain (scale 7-10). [facility] proMETHazin e 25 mg tablet 2021-05 030 00:00: 00 Yes [id number] 25mg Take 1 tablet by mouth every 6 (six) hours as needed for Nausea and Vomiting (N/V). [facility] methocarbam oL 500 mg tablet 2021-05 0 00:00: 00 Yes [id number] 500mg Take 1 tablet by mouth 3 (three) times daily as needed for Pain (scale 7-10). [facility] proMETHazin e 25 mg tablet 2021-05 0 00:00: 00 Yes [id number] 25mg Take 1 tablet by mouth every 6 (six) hours as needed for Nausea and Vomiting (N/V). [facility] methocarbam oL 500 mg tablet 2021-05 0 00:00: 00 Yes [id number] 500mg Take 1 tablet by mouth 3 (three) times daily as needed for Pain (scale 7-10). [facility] proMETHazin e 25 mg tablet 2021-05 0 00:00: 00 Yes [id number] 25mg Take 1 tablet by mouth every 6 (six) hours as needed for Nausea and Vomiting (N/V). [facility] methocarbam oL 500 mg tablet 2021-05 0 00:00: 00 Yes [id number] 500mg Take 1 tablet by mouth 3 (three) times daily as needed for Pain (scale 7-10). [facility] proMETHazin e 25 mg tablet 2021-05 030 00:00: 00 Yes [id number] 25mg Take 1 tablet by mouth every 6 (six) hours as needed for Nausea and Vomiting (N/V). [facility] methocarbam oL 500 mg tablet 2021-05 030 00:00: 00 Yes [id number] 500mg Take 1 tablet by mouth 3 (three) times daily as needed for Pain (scale 7-10). [facility] proMETHazin e 25 mg tablet 2021-05 030 00:00: 00 Yes [id number] 25mg Take 1 tablet by mouth every 6 (six) hours as needed for Nausea and Vomiting (N/V). [facility] proMETHazin e 25 mg tablet 2021-05 0 00:00: 00 Yes [id number] 25mg Take 1 tablet by mouth every 6 (six) hours as needed for Nausea and Vomiting (N/V). [facility] proMETHazin e 25 mg tablet 2021-05 0 00:00: 00 Yes [id number] 25mg Take 1 tablet by mouth every 6 (six) hours as needed for Nausea and Vomiting (N/V). [facility] proMETHazin e 25 mg tablet 2021-05 0 00:00: 00 Yes [id number] 25mg Take 1 tablet by mouth every 6 (six) hours as needed for Nausea and Vomiting (N/V). [facility] proMETHazin e 25 mg tablet 2021-05 0 00:00: 00 Yes [id number] 25mg Take 1 tablet by mouth every 6 (six) hours as needed for Nausea and Vomiting (N/V). [facility] proMETHazin e 25 mg tablet 2021-05 0 00:00: 00 Yes [id number] 25mg Take 1 tablet by mouth every 6 (six) hours as needed for Nausea and Vomiting (N/V). [facility] proMETHazin e 25 mg tablet 2021-05 0 00:00: 00 Yes [id number] 25mg Take 1 tablet by mouth every 6 (six) hours as needed for Nausea and Vomiting (N/V). [facility] proMETHazin e 25 mg tablet 2021-05 030 00:00: 00 Yes [id number] 25mg Take 1 tablet by mouth every 6 (six) hours as needed for Nausea and Vomiting (N/V). [facility] proMETHazin e 25 mg tablet 2021-05 030 00:00: 00 Yes [id number] 25mg Take 1 tablet by mouth every 6 (six) hours as needed for Nausea and Vomiting (N/V). [facility] proMETHazin e 25 mg tablet 2021-05 030 00:00: 00 Yes [id number] 25mg Take 1 tablet by mouth every 6 (six) hours as needed for Nausea and Vomiting (N/V). [facility] proMETHazin e 25 mg tablet 2021-05 030 00:00: 00 Yes [id number] 25mg Take 1 tablet by mouth every 6 (six) hours as needed for Nausea and Vomiting (N/V). [facility] proMETHazin e 25 mg tablet 2021-05 030 00:00: 00 Yes [id number] 25mg Take 1 tablet by mouth every 6 (six) hours as needed for Nausea and Vomiting (N/V). [facility] proMETHazin e 25 mg tablet 2021-05 0 00:00: 00 Yes [id number] 25mg Take 1 tablet by mouth every 6 (six) hours as needed for Nausea and Vomiting (N/V). [facility] proMETHazin e 25 mg tablet 2021-05 0 00:00: 00 Yes [id number] 25mg Take 1 tablet by mouth every 6 (six) hours as needed for Nausea and Vomiting (N/V). [facility] proMETHazin e 25 mg tablet 2021-05 030 00:00: 00 Yes [id number] 25mg Take 1 tablet by mouth every 6 (six) hours as needed for Nausea and Vomiting (N/V). [facility] proMETHazin e 25 mg tablet 2021-05 030 00:00: 00 Yes [id number] 25mg Take 1 tablet by mouth every 6 (six) hours as needed for Nausea and Vomiting (N/V). [facility] proMETHazin e 25 mg tablet 2021-05 030 00:00: 00 Yes [id number] 25mg Take 1 tablet by mouth every 6 (six) hours as needed for Nausea and Vomiting (N/V). [facility] proMETHazin e 25 mg tablet 2021-05 030 00:00: 00 07-31 00:00 :00 No [id number] 25mg Take 1 tablet by mouth every 6 (six) hours as needed for Nausea and Vomiting (N/V). [facility] methocarbam oL 500 mg tablet 2021-05 0-30 00:00: 00 04-07 00:00 :00 No [id number] 500mg Take 1 tablet by mouth 3 (three) times daily as needed for Pain (scale 7-10). [facility] topiramate 25 mg tablet 2021-05 0- 00:00: 00 Yes [id number] 100mg Take 4 tablets by mouth in the morning. [facility] topiramate 25 mg tablet 2021- 0 00:00: 00 Yes [id number] 100mg Take 4 tablets by mouth in the morning. [facility] topiramate 25 mg tablet 2021- 0 00:00: 00 Yes [id number] 100mg Take 4 tablets by mouth in the morning. [facility] topiramate 25 mg tablet 2021- 0 00:00: 00 Yes [id number] 100mg Take 4 tablets by mouth in the morning. [facility] topiramate 25 mg tablet 2021- 0 00:00: 00 Yes [id number] 100mg Take 4 tablets by mouth in the morning. [facility] topiramate 25 mg tablet 2021- 0 00:00: 00 Yes [id number] 100mg Take 4 tablets by mouth in the morning. [facility] topiramate 25 mg tablet 2021- 0 00:00: 00 Yes [id number] 100mg Take 4 tablets by mouth in the morning. [facility] topiramate 25 mg tablet 2021- 0 00:00: 00 Yes [id number] 100mg Take 4 tablets by mouth in the morning. [facility] topiramate 25 mg tablet 2021- 0- 00:00: 00 Yes [id number] 100mg Take 4 tablets by mouth in the morning. [facility] topiramate 25 mg tablet 2021- 0- 00:00: 00 Yes [id number] 100mg Take 4 tablets by mouth in the morning. [facility] topiramate 25 mg tablet 2021-1 0-21 00:00: 00 Yes [id number] 100mg Take 4 tablets by mouth in the morning. [facility] topiramate 25 mg tablet 2021-1 0- 00:00: 00 Yes [id number] 100mg Take 4 tablets by mouth in the morning. [facility] topiramate 25 mg tablet 2021-1 0- 00:00: 00 Yes [id number] 100mg Take 4 tablets by mouth in the morning. [facility] topiramate 25 mg tablet 2021-1 0 00:00: 00 Yes [id number] 100mg Take 4 tablets by mouth in the morning. [facility] topiramate 25 mg tablet 2021-1 0 00:00: 00 Yes [id number] 100mg Take 4 tablets by mouth in the morning. [facility] topiramate 25 mg tablet 2021-1 0 00:00: 00 Yes [id number] 100mg Take 4 tablets by mouth in the morning. [facility] topiramate 25 mg tablet 2021-1 0 00:00: 00 Yes [id number] 100mg Take 4 tablets by mouth in the morning. [facility] topiramate 25 mg tablet 2021-1 0 00:00: 00 Yes [id number] 100mg Take 4 tablets by mouth in the morning. [facility] topiramate 25 mg tablet 2021-1 0 00:00: 00 Yes [id number] 100mg Take 4 tablets by mouth in the morning. [facility] topiramate 25 mg tablet 2021-1 0 00:00: 00 Yes [id number] 100mg Take 4 tablets by mouth in the morning. [facility] topiramate 25 mg tablet 2-1 0 00:00: 00 Yes [id number] 100mg Take 4 tablets by mouth in the morning. [facility] topiramate 25 mg tablet 2021-1 0- 00:00: 00 Yes [id number] 100mg Take 4 tablets by mouth in the morning. [facility] topiramate 25 mg tablet 2-1 0- 00:00: 00 Yes [id number] 100mg Take 4 tablets by mouth in the morning. [facility] topiramate 25 mg tablet 2021-1 021 00:00: 00 Yes [id number] 100mg Take 4 tablets by mouth in the morning. [facility] topiramate 25 mg tablet 2021-1 0 00:00: 00 Yes [id number] 100mg Take 4 tablets by mouth in the morning. [facility] topiramate 25 mg tablet 2-1 0- 00:00: 00 Yes [id number] 100mg Take 4 tablets by mouth in the morning. [facility] topiramate 25 mg tablet 2021-1 0 00:00: 00 Yes [id number] 100mg Take 4 tablets by mouth in the morning. [facility] topiramate 25 mg tablet 2021-1 0 00:00: 00 Yes [id number] 100mg Take 4 tablets by mouth in the morning. [facility] topiramate 25 mg tablet 2-1 0 00:00: 00 Yes [id number] 100mg Take 4 tablets by mouth in the morning. [facility] topiramate 25 mg tablet 2021-1 0 00:00: 00 Yes [id number] 100mg Take 4 tablets by mouth in the morning. [facility] topiramate 25 mg tablet 2021-1 0 00:00: 00 Yes [id number] 100mg Take 4 tablets by mouth in the morning. [facility] topiramate 25 mg tablet 2-1 0 00:00: 00 Yes [id number] 100mg Take 4 tablets by mouth in the morning. [facility] topiramate 25 mg tablet 2021-1 0 00:00: 00 Yes [id number] 100mg Take 4 tablets by mouth in the morning. [facility] topiramate 25 mg tablet 2-1 0- 00:00: 00 Yes [id number] 100mg Take 4 tablets by mouth in the morning. [facility] topiramate 25 mg tablet 2-1 0-21 00:00: 00 Yes [id number] 100mg Take 4 tablets by mouth in the morning. [facility] topiramate 25 mg tablet 2-1 0-21 00:00: 00 Yes [id number] 100mg Take 4 tablets by mouth in the morning. [facility] topiramate 25 mg tablet 2021-1 0- 00:00: 00 Yes [id number] 100mg Take 4 tablets by mouth in the morning. [facility] topiramate 25 mg tablet 2021-1 0- 00:00: 00 Yes [id number] 100mg Take 4 tablets by mouth in the morning. [facility] topiramate 25 mg tablet 2021-1 0 00:00: 00 Yes [id number] 100mg Take 4 tablets by mouth in the morning. [facility] topiramate 25 mg tablet 2021-1 0 00:00: 00 Yes [id number] 100mg Take 4 tablets by mouth in the morning. [facility] topiramate 25 mg tablet 2021-1 0 00:00: 00 Yes [id number] 100mg Take 4 tablets by mouth in the morning. [facility] topiramate 25 mg tablet 2021-1 0 00:00: 00 Yes [id number] 100mg Take 4 tablets by mouth in the morning. [facility] topiramate 25 mg tablet 2021-1 0 00:00: 00 Yes [id number] 100mg Take 4 tablets by mouth in the morning. [facility] topiramate 25 mg tablet 2021-1 0 00:00: 00 Yes [id number] 100mg Take 4 tablets by mouth in the morning. [facility] topiramate 25 mg tablet 2021-1 0 00:00: 00 Yes [id number] 100mg Take 4 tablets by mouth in the morning. [facility] topiramate 25 mg tablet 2-1 0 00:00: 00 Yes [id number] 100mg Take 4 tablets by mouth in the morning. [facility] topiramate 25 mg tablet 2021-1 0- 00:00: 00 Yes [id number] 100mg Take 4 tablets by mouth in the morning. [facility] topiramate 25 mg tablet 2-1 0- 00:00: 00 Yes [id number] 100mg Take 4 tablets by mouth in the morning. [facility] topiramate 25 mg tablet 2021-05 0 00:00: 00 Yes [id number] 100mg Take 4 tablets by mouth in the morning. [facility] topiramate 25 mg tablet 2021-05 0 00:00: 00 Yes [id number] 100mg Take 4 tablets by mouth in the morning. [facility] diphenhydrA MINE 25 mg capsule 2021-05 018 09:39: 59 02-27 00:00 :00 No 25mg Take 25 mg by mouth every 6 (six) hours as needed for Allergies. [facility] diphenhydrA MINE 25 mg capsule 2021-0518 09:39: 59 02-27 00:00 :00 No 25mg Take 25 mg by mouth every 6 (six) hours as needed for Allergies. [facility] diphenhydrA MINE 25 mg capsule 2021-05 09:39: 59 02-27 00:00 :00 No 25mg Take 25 mg by mouth every 6 (six) hours as needed for Allergies. [facility] diphenhydrA MINE 25 mg capsule 2021-05 09:39: 59 02-27 00:00 :00 No 25mg Take 25 mg by mouth every 6 (six) hours as needed for Allergies. [facility] diphenhydrA MINE 25 mg capsule 2021-05 09:39: 59 02-27 00:00 :00 No 25mg Take 25 mg by mouth every 6 (six) hours as needed for Allergies. [facility] citalopram hydrobromid e (CITALOPRAM ORAL) 2021-05 09:39: 49 02-27 00:00 :00 No Take by mouth. [facility] citalopram hydrobromid e (CITALOPRAM ORAL) 2021-0518 09:39: 49 02-27 00:00 :00 No Take by mouth. [facility] citalopram hydrobromid e (CITALOPRAM ORAL) 2021-0518 09:39: 49 02-27 00:00 :00 No Take by mouth. [facility] citalopram hydrobromid e (CITALOPRAM ORAL) 2021-05 018 09:39: 49 02-27 00:00 :00 No Take by mouth. [facility] carbamazepi ne (TEGRETOL ORAL) 2021-05 018 09:39: 28 02-27 00:00 :00 No Take by mouth. [facility] carbamazepi ne (TEGRETOL ORAL) 2021-05 018 09:39: 28 02-27 00:00 :00 No Take by mouth. [facility] carbamazepi ne (TEGRETOL ORAL) 2021-05 018 09:39: 28 02-27 00:00 :00 No Take by mouth. [facility] carbamazepi ne (TEGRETOL ORAL) 2021-05 0 09:39: 28 02-27 00:00 :00 No Take by mouth. [facility] albuterol 90 mcg/actuati on inhaler 2021-05 0 00:00: 00 Yes [id number] 2{puff} Inhale 2 Puffs every 6 (six) hours as needed for Wheezing or Shortness of Breath. [facility] albuterol 90 mcg/actuati on inhaler 2021-05 0 00:00: 00 Yes [id number] 2{puff} Inhale 2 Puffs every 6 (six) hours as needed for Wheezing or Shortness of Breath. [facility] albuterol 90 mcg/actuati on inhaler 2021-05 018 00:00: 00 Yes [id number] 2{puff} Inhale 2 Puffs every 6 (six) hours as needed for Wheezing or Shortness of Breath. [facility] albuterol 90 mcg/actuati on inhaler 2021-05 018 00:00: 00 Yes [id number] 2{puff} Inhale 2 Puffs every 6 (six) hours as needed for Wheezing or Shortness of Breath. [facility] albuterol 90 mcg/actuati on inhaler 2021-05 0-18 00:00: 00 Yes [id number] 2{puff} Inhale 2 Puffs every 6 (six) hours as needed for Wheezing or Shortness of Breath. [facility] albuterol 90 mcg/actuati on inhaler 2021-05 018 00:00: 00 Yes [id number] 2{puff} Inhale 2 Puffs every 6 (six) hours as needed for Wheezing or Shortness of Breath. [facility] albuterol 90 mcg/actuati on inhaler 2021-05 018 00:00: 00 Yes [id number] 2{puff} Inhale 2 Puffs every 6 (six) hours as needed for Wheezing or Shortness of Breath. [facility] albuterol 90 mcg/actuati on inhaler 2021-05 018 00:00: 00 Yes [id number] 2{puff} Inhale 2 Puffs every 6 (six) hours as needed for Wheezing or Shortness of Breath. [facility] albuterol 90 mcg/actuati on inhaler 2021-05 018 00:00: 00 Yes [id number] 2{puff} Inhale 2 Puffs every 6 (six) hours as needed for Wheezing or Shortness of Breath. [facility] albuterol 90 mcg/actuati on inhaler 2021-05 018 00:00: 00 Yes [id number] 2{puff} Inhale 2 Puffs every 6 (six) hours as needed for Wheezing or Shortness of Breath. [facility] albuterol 90 mcg/actuati on inhaler 2021-05 018 00:00: 00 Yes [id number] 2{puff} Inhale 2 Puffs every 6 (six) hours as needed for Wheezing or Shortness of Breath. [facility] albuterol 90 mcg/actuati on inhaler 2021-05 0-18 00:00: 00 Yes [id number] 2{puff} Inhale 2 Puffs every 6 (six) hours as needed for Wheezing or Shortness of Breath. [facility] albuterol 90 mcg/actuati on inhaler 2021-05 0-18 00:00: 00 Yes [id number] 2{puff} Inhale 2 Puffs every 6 (six) hours as needed for Wheezing or Shortness of Breath. [facility] albuterol 90 mcg/actuati on inhaler 2021-05 0-18 00:00: 00 Yes [id number] 2{puff} Inhale 2 Puffs every 6 (six) hours as needed for Wheezing or Shortness of Breath. [facility] albuterol 90 mcg/actuati on inhaler 2021-05 018 00:00: 00 Yes [id number] 2{puff} Inhale 2 Puffs every 6 (six) hours as needed for Wheezing or Shortness of Breath. [facility] albuterol 90 mcg/actuati on inhaler 2021-05 018 00:00: 00 Yes [id number] 2{puff} Inhale 2 Puffs every 6 (six) hours as needed for Wheezing or Shortness of Breath. [facility] albuterol 90 mcg/actuati on inhaler 2021-05 0 00:00: 00 Yes [id number] 2{puff} Inhale 2 Puffs every 6 (six) hours as needed for Wheezing or Shortness of Breath. [facility] albuterol 90 mcg/actuati on inhaler 2021-05 018 00:00: 00 Yes [id number] 2{puff} Inhale 2 Puffs every 6 (six) hours as needed for Wheezing or Shortness of Breath. [facility] albuterol 90 mcg/actuati on inhaler 2021-05 018 00:00: 00 Yes [id number] 2{puff} Inhale 2 Puffs every 6 (six) hours as needed for Wheezing or Shortness of Breath. [facility] albuterol 90 mcg/actuati on inhaler 2021-05 0-18 00:00: 00 Yes [id number] 2{puff} Inhale 2 Puffs every 6 (six) hours as needed for Wheezing or Shortness of Breath. [facility] albuterol 90 mcg/actuati on inhaler 2021-05 018 00:00: 00 Yes [id number] 2{puff} Inhale 2 Puffs every 6 (six) hours as needed for Wheezing or Shortness of Breath. [facility] albuterol 90 mcg/actuati on inhaler 2021-05 018 00:00: 00 Yes [id number] 2{puff} Inhale 2 Puffs every 6 (six) hours as needed for Wheezing or Shortness of Breath. [facility] albuterol 90 mcg/actuati on inhaler 2021-05 018 00:00: 00 Yes [id number] 2{puff} Inhale 2 Puffs every 6 (six) hours as needed for Wheezing or Shortness of Breath. [facility] albuterol 90 mcg/actuati on inhaler 2021-05 018 00:00: 00 Yes [id number] 2{puff} Inhale 2 Puffs every 6 (six) hours as needed for Wheezing or Shortness of Breath. [facility] albuterol 90 mcg/actuati on inhaler 2021-05 018 00:00: 00 Yes [id number] 2{puff} Inhale 2 Puffs every 6 (six) hours as needed for Wheezing or Shortness of Breath. [facility] albuterol 90 mcg/actuati on inhaler 2021-05 018 00:00: 00 Yes [id number] 2{puff} Inhale 2 Puffs every 6 (six) hours as needed for Wheezing or Shortness of Breath. [facility] albuterol 90 mcg/actuati on inhaler 2021-05 018 00:00: 00 Yes [id number] 2{puff} Inhale 2 Puffs every 6 (six) hours as needed for Wheezing or Shortness of Breath. [facility] albuterol 90 mcg/actuati on inhaler 2021-05 018 00:00: 00 Yes [id number] 2{puff} Inhale 2 Puffs every 6 (six) hours as needed for Wheezing or Shortness of Breath. [facility] albuterol 90 mcg/actuati on inhaler 2021-05 018 00:00: 00 Yes [id number] 2{puff} Inhale 2 Puffs every 6 (six) hours as needed for Wheezing or Shortness of Breath. [facility] albuterol 90 mcg/actuati on inhaler 2021-05 018 00:00: 00 Yes [id number] 2{puff} Inhale 2 Puffs every 6 (six) hours as needed for Wheezing or Shortness of Breath. [facility] albuterol 90 mcg/actuati on inhaler 2021-05 018 00:00: 00 Yes [id number] 2{puff} Inhale 2 Puffs every 6 (six) hours as needed for Wheezing or Shortness of Breath. [facility] albuterol 90 mcg/actuati on inhaler 2021-05 018 00:00: 00 Yes [id number] 2{puff} Inhale 2 Puffs every 6 (six) hours as needed for Wheezing or Shortness of Breath. [facility] albuterol 90 mcg/actuati on inhaler 2021-05 018 00:00: 00 Yes [id number] 2{puff} Inhale 2 Puffs every 6 (six) hours as needed for Wheezing or Shortness of Breath. [facility] albuterol 90 mcg/actuati on inhaler 2021-05 018 00:00: 00 Yes [id number] 2{puff} Inhale 2 Puffs every 6 (six) hours as needed for Wheezing or Shortness of Breath. [facility] albuterol 90 mcg/actuati on inhaler 2021-05 018 00:00: 00 Yes [id number] 2{puff} Inhale 2 Puffs every 6 (six) hours as needed for Wheezing or Shortness of Breath. [facility] albuterol 90 mcg/actuati on inhaler 2021-05 018 00:00: 00 Yes [id number] 2{puff} Inhale 2 Puffs every 6 (six) hours as needed for Wheezing or Shortness of Breath. [facility] albuterol 90 mcg/actuati on inhaler 2021-05 018 00:00: 00 Yes [id number] 2{puff} Inhale 2 Puffs every 6 (six) hours as needed for Wheezing or Shortness of Breath. [facility] albuterol 90 mcg/actuati on inhaler 2021-05 0-18 00:00: 00 Yes [id number] 2{puff} Inhale 2 Puffs every 6 (six) hours as needed for Wheezing or Shortness of Breath. [facility] albuterol 90 mcg/actuati on inhaler 2021-05 018 00:00: 00 Yes [id number] 2{puff} Inhale 2 Puffs every 6 (six) hours as needed for Wheezing or Shortness of Breath. [facility] albuterol 90 mcg/actuati on inhaler 2021-05 018 00:00: 00 Yes [id number] 2{puff} Inhale 2 Puffs every 6 (six) hours as needed for Wheezing or Shortness of Breath. [facility] albuterol 90 mcg/actuati on inhaler 2021-05 0 00:00: 00 Yes [id number] 2{puff} Inhale 2 Puffs every 6 (six) hours as needed for Wheezing or Shortness of Breath. [facility] albuterol 90 mcg/actuati on inhaler 2021-05 018 00:00: 00 Yes [id number] 2{puff} Inhale 2 Puffs every 6 (six) hours as needed for Wheezing or Shortness of Breath. [facility] albuterol 90 mcg/actuati on inhaler 2021-05 018 00:00: 00 Yes [id number] 2{puff} Inhale 2 Puffs every 6 (six) hours as needed for Wheezing or Shortness of Breath. [facility] albuterol 90 mcg/actuati on inhaler 2021-05 018 00:00: 00 Yes [id number] 2{puff} Inhale 2 Puffs every 6 (six) hours as needed for Wheezing or Shortness of Breath. [facility] albuterol 90 mcg/actuati on inhaler 2021-05 018 00:00: 00 Yes [id number] 2{puff} Inhale 2 Puffs every 6 (six) hours as needed for Wheezing or Shortness of Breath. [facility] albuterol 90 mcg/actuati on inhaler 2021-05 0-18 00:00: 00 Yes [id number] 2{puff} Inhale 2 Puffs every 6 (six) hours as needed for Wheezing or Shortness of Breath. [facility] albuterol 90 mcg/actuati on inhaler 2021-05 018 00:00: 00 Yes [id number] 2{puff} Inhale 2 Puffs every 6 (six) hours as needed for Wheezing or Shortness of Breath. [facility] albuterol 90 mcg/actuati on inhaler 2021-05 018 00:00: 00 Yes [id number] 2{puff} Inhale 2 Puffs every 6 (six) hours as needed for Wheezing or Shortness of Breath. [facility] albuterol 90 mcg/actuati on inhaler 2021-05 018 00:00: 00 Yes [id number] 2{puff} Inhale 2 Puffs every 6 (six) hours as needed for Wheezing or Shortness of Breath. [facility] albuterol 90 mcg/actuati on inhaler 2021-05 018 00:00: 00 Yes [id number] 2{puff} Inhale 2 Puffs every 6 (six) hours as needed for Wheezing or Shortness of Breath. [facility] albuterol 90 mcg/actuati on inhaler 2021-05 018 00:00: 00 Yes [id number] 2{puff} Inhale 2 Puffs every 6 (six) hours as needed for Wheezing or Shortness of Breath. [facility] albuterol 90 mcg/actuati on inhaler 2021-05 018 00:00: 00 Yes [id number] 2{puff} Inhale 2 Puffs every 6 (six) hours as needed for Wheezing or Shortness of Breath. [facility] albuterol 90 mcg/actuati on inhaler 2021-05 0-18 00:00: 00 Yes [id number] 2{puff} Inhale 2 Puffs every 6 (six) hours as needed for Wheezing or Shortness of Breath. [facility] albuterol 90 mcg/actuati on inhaler 2021-05 0-18 00:00: 00 Yes [id number] 2{puff} Inhale 2 Puffs every 6 (six) hours as needed for Wheezing or Shortness of Breath. [facility] albuterol 90 mcg/actuati on inhaler 2021-05 0-18 00:00: 00 Yes [id number] 2{puff} Inhale 2 Puffs every 6 (six) hours as needed for Wheezing or Shortness of Breath. [facility] albuterol 90 mcg/actuati on inhaler 2021-05 018 00:00: 00 Yes [id number] 2{puff} Inhale 2 Puffs every 6 (six) hours as needed for Wheezing or Shortness of Breath. [facility] SUMAtriptan 50 mg tablet 2021-05 00:00: 00 03-21 00:00 :00 No 50mg Take 50 mg by mouth as needed for Migraine. Take one tablet at onset of migraine, may take another tablet 2 hours after initial dose if no relief with first dose. DO NOT EXCEED 100mg in a 24 hour period. [facility] benzonatate 200 mg capsule 2021-05 018 00:00: 00 03-07 04:59 :00 No [id number] 200mg Take 1 capsule by mouth 3 (three) times daily as needed for Cough for up to 7 days. [facility] benzonatate 200 mg capsule 2021-05 018 00:00: 00 03-07 04:59 :00 No [id number] 200mg Take 1 capsule by mouth 3 (three) times daily as needed for Cough for up to 7 days. [facility] benzonatate 200 mg capsule 2021-05 018 00:00: 00 03-07 04:59 :00 No [id number] 200mg Take 1 capsule by mouth 3 (three) times daily as needed for Cough for up to 7 days. [facility] benzonatate 200 mg capsule 2021-05 0-18 00:00: 00 03-07 04:59 :00 No [id number] 200mg Take 1 capsule by mouth 3 (three) times daily as needed for Cough for up to 7 days. [facility] benzonatate 200 mg capsule 2021-05 0-18 00:00: 00 03-07 04:59 :00 No [id number] 200mg Take 1 capsule by mouth 3 (three) times daily as needed for Cough for up to 7 days. [facility] benzonatate 200 mg capsule 2021-05 0-18 00:00: 00 03-07 04:59 :00 No [id number] 200mg Take 1 capsule by mouth 3 (three) times daily as needed for Cough for up to 7 days. [facility] SUMAtriptan 50 mg tablet 2021-05 018 00:00: 00 02-28 04:59 :00 No [id number] 50mg Take 1 tablet by mouth once now for 1 dose. [facility] SUMAtriptan 50 mg tablet 2021-05 018 00:00: 00 02-28 04:59 :00 No [id number] 50mg Take 1 tablet by mouth once now for 1 dose. [facility] butalbital- acetaminoph en-caff (ESGIC) 50-325-40 mg tablet 1 tablet 2021-05 012 08:15: 00 02-21 08:09 :00 No 1{tbl} 1 tablet, Oral, ONCE, 1 dose, On Sat02/21/22 at 0315, [place] [facility] butorphanol (STADOL) injection 1 mg 2021-05 012 08:15: 00 02-21 07:28 :00 No 1mg 1 mg, IV Push, ONCE, 1 dose, On Sat02/21/22 at 0315, Routine [facility] NaCl 0.9% (NS) bolus infusion 1,000 mL 2021-05 012 07:15: 00 02-21 08:40 :00 No 1000mL at 999 mL/hr, 1,000 mL, IV Infusion, ONCE, 1 dose, On Sat02/21/22 at 0215, [place] [facility] proMETHazin e (PHENERGAN) 12.5 mg in NaCl 0.9% (NS) 50 mL IV piggyback 2021-05 06:30: 00 02-21 06:38 :00 No 12.5mg 12.5 mg, IV Piggyback, ONCE, 1 dose, On Sat02/21/22 at 0130, [place] [facility] dexamethaso ne sod phos PF injection 10 mg 2021-05 06:30: 00 02-21 06:38 :00 No 10mg 10 mg, Slow IV Push, ONCE, 1 dose, On Sat02/21/22 at 0130, 1 mL [facility] ketorolac (TORADOL) injection 15 mg 2021-05 06:30: 00 02-21 06:38 :00 No 15mg 15 mg, Slow IV Push, ONCE, 1 dose, On Sat02/21/22 at 0130, [facility] diphenhydrA MINE (BENADRYL) injection 25 mg 2021-05 06:30: 00 02-21 06:38 :00 No 25mg 25 mg, Slow IV Push, ONCE, 1 dose, On Sat02/21/22 at 0130, STAT [facility] FENTanyl PF (SUBLIMAZE (PF)) injection 50 mcg 2021-05 20:30: 00 02-18 19:44 :00 No 50ug 50 mcg, Slow IV Push, ONCE, 1 dose, On Sat02/18/22 at 1530, Routine [facility] ketorolac (TORADOL) injection 30 mg 2021-05 20:15: 00 02-18 20:09 :00 No 30mg 30 mg, Slow IV Push, ONCE, 1 dose, On Sat02/18/22 at 1515, [facility] iopamidol (ISOVUE 370-500 mL) injection 60 mL 2021-05 19:30: 00 02-18 17:30 :00 No [id number] 60mL 60 mL, Intravenou s, ONCE, 1 dose, On Sat02/18/22 at 1430, Routine [facility] proMETHazin e (PHENERGAN) 12.5 mg in NaCl 0.9% (NS) 50 mL IV piggyback 2021-05 18:15: 00 02-18 18:19 :00 No 12.5mg 12.5 mg, IV Piggyback, ONCE, 1 dose, On [place] 02/18/22 at 1315, [facility] FENTanyl PF (SUBLIMAZE (PF)) injection 50 mcg 2021-05 18:00: 00 02-18 17:26 :00 No 50ug 50 mcg, Slow IV Push, ONCE, 1 dose, On 02/18/22 at 1300, Routine [facility] ondansetron (ZOFRAN (PF)) injection 4 mg 2021-05 17:15: 00 02-18 17:27 :00 No 4mg 4 mg, Slow IV Push, ONCE, 1 dose, On [place] 02/18/22 at 1215, [facility] morpHINE (2 mg/mL) injection 4 mg 01-18 15:15: 00 01-18 14:49 :00 No 4mg 4 mg, Slow IV Push, ONCE, 1 dose, On [place] 01/18/22 at 1015, STAT [facility] ondansetron (ZOFRAN (PF)) injection 4 mg 01-18 13:30: 00 01-18 13:33 :00 No 4mg 4 mg, Slow IV Push, ONCE, 1 dose, On [place] 01/18/22 at 0830, [facility] morpHINE (4 mg/mL) injection 4 mg 01-18 13:30: 00 01-18 13:34 :00 No 4mg 4 mg, Slow IV Push, ONCE, 1 dose, On [place] 01/18/22 at 0830, [facility] morpHINE (4 mg/mL) injection 4 mg 01-18 12:30: 00 01-18 11:39 :00 No 4mg 4 mg, Slow IV Push, ONCE, 1 dose, On [place] 01/18/22 at 0730, [facility] famotidine (PEPCID (PF)) injection 20 mg 01-18 11:30: 00 01-18 10:52 :00 No 20mg 20 mg, Slow IV Push, ONCE, 1 dose, On [place] 01/18/22 at 0630, [facility] ondansetron (ZOFRAN (PF)) injection 4 mg 01-18 11:30: 00 01-18 10:52 :00 No 4mg 4 mg, Slow IV Push, ONCE, 1 dose, [facility] [place] [facility]IPA[facility] 270-150 mL) injection 80 mL 01-18 11:21: 00 01-18 11:15 :00 No [id number] 80mL 80 mL, Intravenou s, ONCE, 1 dose, On [place] 01/18/22 at 0630, Routine [facility] NaCl 0.9% (NS) bolus infusion 1,000 mL 01-18 11:15: 00 01-18 12:59 :00 No 1000mL at 999 mL/hr, 1,000 mL, IV Infusion, ONCE, 1 dose, On [place] 01/18/22 at 0615, [facility] morpHINE (4 mg/mL) injection 4 mg 01-18 10:45: 00 01-18 10:52 :00 No 4mg 4 mg, Slow IV Push, ONCE, 1 dose, On [place] 01/18/22 at 0545, STAT [facility] traMADoL 50 mg tablet 01-18 00:00: 00 Yes [id number] 50mg Take 1 tablet by mouth every 6 (six) hours as needed for Pain (scale 7-10). Indication s: acute pain [facility] ondansetron 4 mg disintegrat ing tablet 01-18 00:00: 00 Yes [id number] 4mg Take 1 tablet by mouth every 8 (eight) hours as needed for Nausea and Vomiting (N/V). [facility] ibuprofen 600 mg tablet 01-18 00:00: 00 Yes [id number] 600mg Take 1 tablet by mouth every 6 (six) hours as needed for Pain (scale 4-6). [facility] traMADoL 50 mg tablet 01-18 00:00: 00 Yes [id number] 50mg Take 1 tablet by mouth every 6 (six) hours as needed for Pain (scale 7-10). Indication s: acute pain [facility] ondansetron 4 mg disintegrat ing tablet 01-18 00:00: 00 Yes [id number] 4mg Take 1 tablet by mouth every 8 (eight) hours as needed for Nausea and Vomiting (N/V). [facility] ibuprofen 600 mg tablet 01-18 00:00: 00 Yes [id number] 600mg Take 1 tablet by mouth every 6 (six) hours as needed for Pain (scale 4-6). [facility] traMADoL 50 mg tablet 01-18 00:00: 00 Yes [id number] 50mg Take 1 tablet by mouth every 6 (six) hours as needed for Pain (scale 7-10). Indication s: acute pain [facility] ondansetron 4 mg disintegrat ing tablet 01-18 00:00: 00 Yes [id number] 4mg Take 1 tablet by mouth every 8 (eight) hours as needed for Nausea and Vomiting (N/V). [facility] ibuprofen 600 mg tablet 01-18 00:00: 00 Yes [id number] 600mg Take 1 tablet by mouth every 6 (six) hours as needed for Pain (scale 4-6). [facility] traMADoL 50 mg tablet 01-18 00:00: 00 Yes [id number] 50mg Take 1 tablet by mouth every 6 (six) hours as needed for Pain (scale 7-10). Indication s: acute pain [facility] ondansetron 4 mg disintegrat ing tablet 01-18 00:00: 00 Yes [id number] 4mg Take 1 tablet by mouth every 8 (eight) hours as needed for Nausea and Vomiting (N/V). [facility] ibuprofen 600 mg tablet 01-18 00:00: 00 Yes [id number] 600mg Take 1 tablet by mouth every 6 (six) hours as needed for Pain (scale 4-6). [facility] traMADoL 50 mg tablet 01-18 00:00: 00 Yes [id number] 50mg Take 1 tablet by mouth every 6 (six) hours as needed for Pain (scale 7-10). Indication s: acute pain [facility] ondansetron 4 mg disintegrat ing tablet 01-18 00:00: 00 Yes [id number] 4mg Take 1 tablet by mouth every 8 (eight) hours as needed for Nausea and Vomiting (N/V). [facility] ibuprofen 600 mg tablet 01-18 00:00: 00 Yes [id number] 600mg Take 1 tablet by mouth every 6 (six) hours as needed for Pain (scale 4-6). [facility] traMADoL 50 mg tablet 01-18 00:00: 00 Yes [id number] 50mg Take 1 tablet by mouth every 6 (six) hours as needed for Pain (scale 7-10). Indication s: acute pain [facility] ondansetron 4 mg disintegrat ing tablet 01-18 00:00: 00 Yes [id number] 4mg Take 1 tablet by mouth every 8 (eight) hours as needed for Nausea and Vomiting (N/V). [facility] ibuprofen 600 mg tablet 01-18 00:00: 00 Yes [id number] 600mg Take 1 tablet by mouth every 6 (six) hours as needed for Pain (scale 4-6). [facility] traMADoL 50 mg tablet 01-18 00:00: 00 Yes [id number] 50mg Take 1 tablet by mouth every 6 (six) hours as needed for Pain (scale 7-10). Indication s: acute pain [facility] ondansetron 4 mg disintegrat ing tablet 01-18 00:00: 00 Yes [id number] 4mg Take 1 tablet by mouth every 8 (eight) hours as needed for Nausea and Vomiting (N/V). [facility] ibuprofen 600 mg tablet 0 08 00:00: 00 Yes [id number] 600mg Take 1 tablet by mouth every 6 (six) hours as needed for Pain (scale 4-6). [facility] traMADoL 50 mg tablet 2021-0 908 00:00: 00 Yes [id number] 50mg Take 1 tablet by mouth every 6 (six) hours as needed for Pain (scale 7-10). Indication s: acute pain [facility] ondansetron 4 mg disintegrat ing tablet 0 01-18 00:00: 00 Yes [id number] 4mg Take 1 tablet by mouth every 8 (eight) hours as needed for Nausea and Vomiting (N/V). [facility] ibuprofen 600 mg tablet 2021-01-18 00:00: 00 Yes [id number] 600mg Take 1 tablet by mouth every 6 (six) hours as needed for Pain (scale 4-6). [facility] traMADoL 50 mg tablet 0 01-18 00:00: 00 02-27 00:00 :00 No [id number] 50mg Take 1 tablet by mouth every 6 (six) hours as needed for Pain (scale 7-10). Indication s: acute pain [facility] ondansetron 4 mg disintegrat ing tablet 01-18 00:00: 00 02-27 00:00 :00 No [id number] 4mg Take 1 tablet by mouth every 8 (eight) hours as needed for Nausea and Vomiting (N/V). [facility] ibuprofen 600 mg tablet 08 00:00: 00 02-27 00:00 :00 No [id number] 600mg Take 1 tablet by mouth every 6 (six) hours as needed for Pain (scale 4-6). [facility] traMADoL 50 mg tablet 2021-0 08 00:00: 00 02-27 00:00 :00 No [id number] 50mg Take 1 tablet by mouth every 6 (six) hours as needed for Pain (scale 7-10). Indication s: acute pain [facility] ondansetron 4 mg disintegrat ing tablet 01-18 00:00: 00 02-27 00:00 :00 No [id number] 4mg Take 1 tablet by mouth every 8 (eight) hours as needed for Nausea and Vomiting (N/V). [facility] ibuprofen 600 mg tablet 01-18 00:00: 00 02-27 00:00 :00 No [id number] 600mg Take 1 tablet by mouth every 6 (six) hours as needed for Pain (scale 4-6). [facility] traMADoL 50 mg tablet 01-18 00:00: 00 02-27 00:00 :00 No [id number] 50mg Take 1 tablet by mouth every 6 (six) hours as needed for Pain (scale 7-10). Indication s: acute pain [facility] ondansetron 4 mg disintegrat ing tablet 01-18 00:00: 00 02-27 00:00 :00 No [id number] 4mg Take 1 tablet by mouth every 8 (eight) hours as needed for Nausea and Vomiting (N/V). [facility] ibuprofen 600 mg tablet 01-18 00:00: 00 02-27 00:00 :00 No [id number] 600mg Take 1 tablet by mouth every 6 (six) hours as needed for Pain (scale 4-6). [facility] traMADoL 50 mg tablet 01-18 00:00: 00 02-27 00:00 :00 No [id number] 50mg Take 1 tablet by mouth every 6 (six) hours as needed for Pain (scale 7-10). Indication s: acute pain [facility] ondansetron 4 mg disintegrat ing tablet 01-18 00:00: 00 02-27 00:00 :00 No [id number] 4mg Take 1 tablet by mouth every 8 (eight) hours as needed for Nausea and Vomiting (N/V). [facility] ibuprofen 600 mg tablet 01-18 00:00: 00 02-27 00:00 :00 No [id number] 600mg Take 1 tablet by mouth every 6 (six) hours as needed for Pain (scale 4-6). [facility] predniSONE 20 mg tablet 01-16 00:00: 00 01-24 04:59 :00 No [id number] 40mg Take 2 tablets by mouth in the morning for 7 days. [facility] [facility] pred[facility]E [facility] mg tablet 01-16 00:00: 01-24 04:59 :00 No [id number] 40mg Take 2 tablets by mouth in the morning for 7 days. [facility] morpHINE (4 mg/mL) injection 4 mg 01-15 16:15: 00 01-15 15:28 :00 No 4mg 4 mg, Slow IV Push, ONCE, 1 dose, On Sat01/15/22 at 1115, [facility] proMETHazin e (PHENERGAN) 12.5 mg in NaCl 0.9% (NS) 50 mL IV piggyback 01-15 15:30: 00 01-15 15:28 :00 No 12.5mg 12.5 mg, IV Piggyback, ONCE, 1 dose, On Sat01/15/22 at 1030, [facility] NaCl 0.9% (NS) bolus infusion 1,000 mL 01-15 15:00: 00 01-15 15:38 :00 No 1000mL at 999 mL/hr, 1,000 mL, IV Infusion, ONCE, 1 dose, On Sat01/15/22 at 1000, [facility] morpHINE (4 mg/mL) injection 4 mg 01-15 15:00: 00 01-15 14:37 :00 No 4mg 4 mg, Slow IV Push, ONCE, 1 dose, On Sat01/15/22 at 1000, [facility] ondansetron (ZOFRAN (PF)) injection 8 mg 01-15 14:15: 01-15 14:37 :00 No 8mg 8 mg, Slow IV Push, ONCE, 1 dose, On Sat01/15/22 at 0915, [place] dexamethaso ne sod phos PF injection 10 mg 01-15 14:15: 00 01-15 14:37 :00 No 10mg 10 mg, Slow IV Push, ONCE, 1 dose, On Sat01/15/22 at 0915, 1 mL [facility] proMETHazin e 25 mg tablet 01-15 00:00: 00 Yes [id number] 25mg Take 1 tablet by mouth every 6 (six) hours as needed for Nausea and Vomiting (N/V). [facility] proMETHazin e 25 mg tablet 01-15 00:00: 00 Yes [id number] 25mg Take 1 tablet by mouth every 6 (six) hours as needed for Nausea and Vomiting (N/V). [facility] proMETHazin e 25 mg tablet 01-15 00:00: 00 Yes [id number] 25mg Take 1 tablet by mouth every 6 (six) hours as needed for Nausea and Vomiting (N/V). [facility] proMETHazin e 25 mg tablet 01-15 00:00: 00 Yes [id number] 25mg Take 1 tablet by mouth every 6 (six) hours as needed for Nausea and Vomiting (N/V). [facility] proMETHazin e 25 mg tablet 01-15 00:00: 00 Yes [id number] 25mg Take 1 tablet by mouth every 6 (six) hours as needed for Nausea and Vomiting (N/V). [facility] proMETHazin e 25 mg tablet 01-15 00:00: 00 Yes [id number] 25mg Take 1 tablet by mouth every 6 (six) hours as needed for Nausea and Vomiting (N/V). [facility] proMETHazin e 25 mg tablet 01-15 00:00: 00 Yes [id number] 25mg Take 1 tablet by mouth every 6 (six) hours as needed for Nausea and Vomiting (N/V). [facility] proMETHazin e 25 mg tablet 01-15 00:00: 00 Yes [id number] 25mg Take 1 tablet by mouth every 6 (six) hours as needed for Nausea and Vomiting (N/V). [facility] proMETHazin e 25 mg tablet 01-15 00:00: 00 Yes [id number] 25mg Take 1 tablet by mouth every 6 (six) hours as needed for Nausea and Vomiting (N/V). [facility] proMETHazin e 25 mg tablet 01-15 00:00: 00 02-27 00:00 :00 No [id number] 25mg Take 1 tablet by mouth every 6 (six) hours as needed for Nausea and Vomiting (N/V). [facility] proMETHazin e 25 mg tablet 01-15 00:00: 00 02-27 00:00 :00 No [id number] 25mg Take 1 tablet by mouth every 6 (six) hours as needed for Nausea and Vomiting (N/V). [facility] proMETHazin e 25 mg tablet 01-15 00:00: 00 02-27 00:00 :00 No [id number] 25mg Take 1 tablet by mouth every 6 (six) hours as needed for Nausea and Vomiting (N/V). [facility] proMETHazin e 25 mg tablet 01-15 00:00: 00 02-27 00:00 :00 No [id number] 25mg Take 1 tablet by mouth every 6 (six) hours as needed for Nausea and Vomiting (N/V). [facility] ondansetron (ZOFRAN-ODT ) disintegrat ing tablet 4 mg 01-09 01:45: 00 01-09 00:56 :00 No 4mg 4 mg, Oral, ONCE, 1 dose, On Sat01/08/22 at 2045, Routine [facility] HYDROcodone -acetaminop hen (NORCO 5) 5-325 mg tablet 1 tablet 01-09 00:45: 00 01-09 00:37 :00 No 1{tbl} 1 tablet, Oral, ONCE, 1 dose, On Sat01/08/22 at 1945, [place] [facility] diphenhydrA MINE (BENADRYL) injection 25 mg 01-08 23:45: 00 01-08 23:51 :00 No 25mg 25 mg, Slow IV Push, ONCE, 1 dose, On Sat01/08/22 at 1845, STAT [facility] dexamethaso ne sod phos PF injection 10 mg 01-08 23:45: 00 01-08 23:50 :00 No 10mg 10 mg, Slow IV Push, ONCE, 1 dose, On Sat01/08/22 at 1845, 1 mL [facility] ketorolac (TORADOL) injection 30 mg 01-08 23:45: 00 01-08 23:51 :00 No 30mg 30 mg, Slow IV Push, ONCE, 1 dose, On Sat01/08/22 at 1845, [place] [facility] ondansetron 4 mg disintegrat ing tablet 01-08 00:00: 00 Yes [id number] 4mg Take 1 tablet by mouth every 8 (eight) hours as needed for Nausea and Vomiting (N/V). [facility] acetaminoph en (TYLENOL ARTHRITIS PAIN) 650 mg CR tablet 01-08 00:00: 00 Yes [id number] 650mg Take 1 tablet by mouth every 8 (eight) hours as needed for Pain. [facility] ketorolac 10 mg tablet 01-08 00:00: 00 Yes [id number] 10mg Take 1 tablet by mouth every 6 (six) hours as needed for Pain (scale 4-6) or Pain (scale 7-10). [facility] metaxalone (SKELAXIN) 800 mg tablet 01-08 00:00: 00 Yes [id number] 800mg Take 1 tablet by mouth in the morning and 1 tablet at noon and 1 tablet in the evening. [facility] ondansetron 4 mg disintegrat ing tablet 01-08 00:00: 00 Yes [id number] 4mg Take 1 tablet by mouth every 8 (eight) hours as needed for Nausea and Vomiting (N/V). [facility] acetaminoph en (TYLENOL ARTHRITIS PAIN) 650 mg CR tablet 01-08 00:00: 00 Yes [id number] 650mg Take 1 tablet by mouth every 8 (eight) hours as needed for Pain. [facility] ketorolac 10 mg tablet 01-08 00:00: 00 Yes [id number] 10mg Take 1 tablet by mouth every 6 (six) hours as needed for Pain (scale 4-6) or Pain (scale 7-10). [facility] metaxalone (SKELAXIN) 800 mg tablet 01-08 00:00: 00 Yes [id number] 800mg Take 1 tablet by mouth in the morning and 1 tablet at noon and 1 tablet in the evening. [facility] ondansetron 4 mg disintegrat ing tablet 01-08 00:00: 00 Yes [id number] 4mg Take 1 tablet by mouth every 8 (eight) hours as needed for Nausea and Vomiting (N/V). [facility] acetaminoph en (TYLENOL ARTHRITIS PAIN) 650 mg CR tablet 01-08 00:00: 00 Yes [id number] 650mg Take 1 tablet by mouth every 8 (eight) hours as needed for Pain. [facility] ketorolac 10 mg tablet 01-08 00:00: 00 Yes [id number] 10mg Take 1 tablet by mouth every 6 (six) hours as needed for Pain (scale 4-6) or Pain (scale 7-10). [facility] metaxalone (SKELAXIN) 800 mg tablet 01-08 00:00: 00 Yes [id number] 800mg Take 1 tablet by mouth in the morning and 1 tablet at noon and 1 tablet in the evening. [facility] ondansetron 4 mg disintegrat ing tablet 01-08 00:00: 00 Yes [id number] 4mg Take 1 tablet by mouth every 8 (eight) hours as needed for Nausea and Vomiting (N/V). [facility] acetaminoph en (TYLENOL ARTHRITIS PAIN) 650 mg CR tablet 01-08 00:00: 00 Yes [id number] 650mg Take 1 tablet by mouth every 8 (eight) hours as needed for Pain. [facility] ketorolac 10 mg tablet 01-08 00:00: 00 Yes [id number] 10mg Take 1 tablet by mouth every 6 (six) hours as needed for Pain (scale 4-6) or Pain (scale 7-10). [facility] metaxalone (SKELAXIN) 800 mg tablet 01-08 00:00: 00 Yes [id number] 800mg Take 1 tablet by mouth in the morning and 1 tablet at noon and 1 tablet in the evening. [facility] ondansetron 4 mg disintegrat ing tablet 01-08 00:00: 00 Yes [id number] 4mg Take 1 tablet by mouth every 8 (eight) hours as needed for Nausea and Vomiting (N/V). [facility] acetaminoph en (TYLENOL ARTHRITIS PAIN) 650 mg CR tablet 01-08 00:00: 00 Yes [id number] 650mg Take 1 tablet by mouth every 8 (eight) hours as needed for Pain. [facility] ketorolac 10 mg tablet 01-08 00:00: 00 Yes [id number] 10mg Take 1 tablet by mouth every 6 (six) hours as needed for Pain (scale 4-6) or Pain (scale 7-10). [facility] metaxalone (SKELAXIN) 800 mg tablet 01-08 00:00: 00 Yes [id number] 800mg Take 1 tablet by mouth in the morning and 1 tablet at noon and 1 tablet in the evening. [facility] ondansetron 4 mg disintegrat ing tablet 01-08 00:00: 00 Yes [id number] 4mg Take 1 tablet by mouth every 8 (eight) hours as needed for Nausea and Vomiting (N/V). [facility] acetaminoph en (TYLENOL ARTHRITIS PAIN) 650 mg CR tablet 01-08 00:00: 00 Yes [id number] 650mg Take 1 tablet by mouth every 8 (eight) hours as needed for Pain. [facility] ketorolac 10 mg tablet 01-08 00:00: 00 Yes [id number] 10mg Take 1 tablet by mouth every 6 (six) hours as needed for Pain (scale 4-6) or Pain (scale 7-10). [facility] metaxalone (SKELAXIN) 800 mg tablet 01-08 00:00: 00 Yes [id number] 800mg Take 1 tablet by mouth in the morning and 1 tablet at noon and 1 tablet in the evening. [facility] ondansetron 4 mg disintegrat ing tablet 01-08 00:00: 00 Yes [id number] 4mg Take 1 tablet by mouth every 8 (eight) hours as needed for Nausea and Vomiting (N/V). [facility] acetaminoph en (TYLENOL ARTHRITIS PAIN) 650 mg CR tablet 01-08 00:00: 00 Yes [id number] 650mg Take 1 tablet by mouth every 8 (eight) hours as needed for Pain. [facility] ketorolac 10 mg tablet 01-08 00:00: 00 Yes [id number] 10mg Take 1 tablet by mouth every 6 (six) hours as needed for Pain (scale 4-6) or Pain (scale 7-10). [facility] metaxalone (SKELAXIN) 800 mg tablet 01-08 00:00: 00 Yes [id number] 800mg Take 1 tablet by mouth in the morning and 1 tablet at noon and 1 tablet in the evening. [facility] ondansetron 4 mg disintegrat ing tablet 01-08 00:00: 00 Yes [id number] 4mg Take 1 tablet by mouth every 8 (eight) hours as needed for Nausea and Vomiting (N/V). [facility] acetaminoph en (TYLENOL ARTHRITIS PAIN) 650 mg CR tablet 01-08 00:00: 00 Yes [id number] 650mg Take 1 tablet by mouth every 8 (eight) hours as needed for Pain. [facility] ketorolac 10 mg tablet 01-08 00:00: 00 Yes [id number] 10mg Take 1 tablet by mouth every 6 (six) hours as needed for Pain (scale 4-6) or Pain (scale 7-10). [facility] metaxalone (SKELAXIN) 800 mg tablet 01-08 00:00: 00 Yes [id number] 800mg Take 1 tablet by mouth in the morning and 1 tablet at noon and 1 tablet in the evening. [facility] ondansetron 4 mg disintegrat ing tablet 01-08 00:00: 00 Yes [id number] 4mg Take 1 tablet by mouth every 8 (eight) hours as needed for Nausea and Vomiting (N/V). [facility] acetaminoph en (TYLENOL ARTHRITIS PAIN) 650 mg CR tablet 01-08 00:00: 00 Yes [id number] 650mg Take 1 tablet by mouth every 8 (eight) hours as needed for Pain. [facility] ketorolac 10 mg tablet 01-08 00:00: 00 Yes [id number] 10mg Take 1 tablet by mouth every 6 (six) hours as needed for Pain (scale 4-6) or Pain (scale 7-10). [facility] metaxalone (SKELAXIN) 800 mg tablet 01-08 00:00: 00 Yes [id number] 800mg Take 1 tablet by mouth in the morning and 1 tablet at noon and 1 tablet in the evening. [facility] ondansetron 4 mg disintegrat ing tablet 01-08 00:00: 00 Yes [id number] 4mg Take 1 tablet by mouth every 8 (eight) hours as needed for Nausea and Vomiting (N/V). [facility] acetaminoph en (TYLENOL ARTHRITIS PAIN) 650 mg CR tablet 01-08 00:00: 00 Yes [id number] 650mg Take 1 tablet by mouth every 8 (eight) hours as needed for Pain. [facility] ketorolac 10 mg tablet 01-08 00:00: 00 Yes [id number] 10mg Take 1 tablet by mouth every 6 (six) hours as needed for Pain (scale 4-6) or Pain (scale 7-10). [facility] metaxalone (SKELAXIN) 800 mg tablet 01-08 00:00: 00 Yes [id number] 800mg Take 1 tablet by mouth in the morning and 1 tablet at noon and 1 tablet in the evening. [facility] acetaminoph en (TYLENOL ARTHRITIS PAIN) 650 mg CR tablet 01-08 00:00: 00 Yes [id number] 650mg Take 1 tablet by mouth every 8 (eight) hours as needed for Pain. [facility] acetaminoph en (TYLENOL ARTHRITIS PAIN) 650 mg CR tablet 01-08 00:00: 00 Yes [id number] 650mg Take 1 tablet by mouth every 8 (eight) hours as needed for Pain. [facility] acetaminoph en (TYLENOL ARTHRITIS PAIN) 650 mg CR tablet 01-08 00:00: 00 Yes [id number] 650mg Take 1 tablet by mouth every 8 (eight) hours as needed for Pain. [facility] acetaminoph en (TYLENOL ARTHRITIS PAIN) 650 mg CR tablet 01-08 00:00: 00 Yes [id number] 650mg Take 1 tablet by mouth every 8 (eight) hours as needed for Pain. [facility] acetaminoph en (TYLENOL ARTHRITIS PAIN) 650 mg CR tablet 01-08 00:00: 00 Yes [id number] 650mg Take 1 tablet by mouth every 8 (eight) hours as needed for Pain. [facility] acetaminoph en (TYLENOL ARTHRITIS PAIN) 650 mg CR tablet 01-08 00:00: 00 Yes [id number] 650mg Take 1 tablet by mouth every 8 (eight) hours as needed for Pain. [facility] acetaminoph en (TYLENOL ARTHRITIS PAIN) 650 mg CR tablet 01-08 00:00: 00 Yes [id number] 650mg Take 1 tablet by mouth every 8 (eight) hours as needed for Pain. [facility] acetaminoph en (TYLENOL ARTHRITIS PAIN) 650 mg CR tablet 01-08 00:00: 00 Yes [id number] 650mg Take 1 tablet by mouth every 8 (eight) hours as needed for Pain. [facility] acetaminoph en (TYLENOL ARTHRITIS PAIN) 650 mg CR tablet 01-08 00:00: 00 Yes [id number] 650mg Take 1 tablet by mouth every 8 (eight) hours as needed for Pain. [facility] acetaminoph en (TYLENOL ARTHRITIS PAIN) 650 mg CR tablet 01-08 00:00: 00 Yes [id number] 650mg Take 1 tablet by mouth every 8 (eight) hours as needed for Pain. [facility] acetaminoph en (TYLENOL ARTHRITIS PAIN) 650 mg CR tablet 01-08 00:00: 00 Yes [id number] 650mg Take 1 tablet by mouth every 8 (eight) hours as needed for Pain. [facility] acetaminoph en (TYLENOL ARTHRITIS PAIN) 650 mg CR tablet 01-08 00:00: 00 Yes [id number] 650mg Take 1 tablet by mouth every 8 (eight) hours as needed for Pain. [facility] acetaminoph en (TYLENOL ARTHRITIS PAIN) 650 mg CR tablet 01-08 00:00: 00 Yes [id number] 650mg Take 1 tablet by mouth every 8 (eight) hours as needed for Pain. [facility] acetaminoph en (TYLENOL ARTHRITIS PAIN) 650 mg CR tablet 01-08 00:00: 00 Yes [id number] 650mg Take 1 tablet by mouth every 8 (eight) hours as needed for Pain. [facility] acetaminoph en (TYLENOL ARTHRITIS PAIN) 650 mg CR tablet 01-08 00:00: 00 Yes [id number] 650mg Take 1 tablet by mouth every 8 (eight) hours as needed for Pain. [facility] acetaminoph en (TYLENOL ARTHRITIS PAIN) 650 mg CR tablet 01-08 00:00: 00 Yes [id number] 650mg Take 1 tablet by mouth every 8 (eight) hours as needed for Pain. [facility] acetaminoph en (TYLENOL ARTHRITIS PAIN) 650 mg CR tablet 01-08 00:00: 00 Yes [id number] 650mg Take 1 tablet by mouth every 8 (eight) hours as needed for Pain. [facility] acetaminoph en (TYLENOL ARTHRITIS PAIN) 650 mg CR tablet 01-08 00:00: 00 04-07 00:00 :00 No [id number] 650mg Take 1 tablet by mouth every 8 (eight) hours as needed for Pain. [facility] ondansetron 4 mg disintegrat ing tablet 01-08 00:00: 00 02-27 00:00 :00 No [id number] 4mg Take 1 tablet by mouth every 8 (eight) hours as needed for Nausea and Vomiting (N/V). [facility] ketorolac 10 mg tablet 01-08 00:00: 00 02-27 00:00 :00 No [id number] 10mg Take 1 tablet by mouth every 6 (six) hours as needed for Pain (scale 4-6) or Pain (scale 7-10). [facility] metaxalone (SKELAXIN) 800 mg tablet 01-08 00:00: 00 02-27 00:00 :00 No [id number] 800mg Take 1 tablet by mouth in the morning and 1 tablet at noon and 1 tablet in the evening. [facility] ondansetron 4 mg disintegrat ing tablet 01-08 00:00: 00 02-27 00:00 :00 No [id number] 4mg Take 1 tablet by mouth every 8 (eight) hours as needed for Nausea and Vomiting (N/V). [facility] ketorolac 10 mg tablet 01-08 00:00: 00 02-27 00:00 :00 No [id number] 10mg Take 1 tablet by mouth every 6 (six) hours as needed for Pain (scale 4-6) or Pain (scale 7-10). [facility] metaxalone (SKELAXIN) 800 mg tablet 01-08 00:00: 00 02-27 00:00 :00 No [id number] 800mg Take 1 tablet by mouth in the morning and 1 tablet at noon and 1 tablet in the evening. [facility] ondansetron 4 mg disintegrat ing tablet 01-08 00:00: 00 02-27 00:00 :00 No [id number] 4mg Take 1 tablet by mouth every 8 (eight) hours as needed for Nausea and Vomiting (N/V). [facility] ketorolac 10 mg tablet 01-08 00:00: 00 02-27 00:00 :00 No [id number] 10mg Take 1 tablet by mouth every 6 (six) hours as needed for Pain (scale 4-6) or Pain (scale 7-10). [facility] metaxalone (SKELAXIN) 800 mg tablet 01-08 00:00: 00 02-27 00:00 :00 No [id number] 800mg Take 1 tablet by mouth in the morning and 1 tablet at noon and 1 tablet in the evening. [facility] ondansetron 4 mg disintegrat ing tablet 01-08 00:00: 00 02-27 00:00 :00 No [id number] 4mg Take 1 tablet by mouth every 8 (eight) hours as needed for Nausea and Vomiting (N/V). [facility] ketorolac 10 mg tablet 01-08 00:00: 00 02-27 00:00 :00 No [id number] 10mg Take 1 tablet by mouth every 6 (six) hours as needed for Pain (scale 4-6) or Pain (scale 7-10). [facility] metaxalone (SKELAXIN) 800 mg tablet 01-08 00:00: 00 02-27 00:00 :00 No [id number] 800mg Take 1 tablet by mouth in the morning and 1 tablet at noon and 1 tablet in the evening. [facility] metroNIDAZO LE 500 mg tablet 808 00:00: 00 Yes 500mg Take 1 tablet by mouth every 12 (twelve) hours. [facility] metroNIDAZO LE 500 mg tablet 2-0 8-08 00:00: 00 Yes 500mg Take 1 tablet by mouth every 12 (twelve) hours. [facility] metroNIDAZO LE 500 mg tablet 2021-0 8-08 00:00: 00 Yes 500mg Take 1 tablet by mouth every 12 (twelve) hours. [facility] metroNIDAZO LE 500 mg tablet 2-0 8-08 00:00: 00 Yes 500mg Take 1 tablet by mouth every 12 (twelve) hours. [facility] metroNIDAZO LE 500 mg tablet 2-0 8-08 00:00: 00 Yes 500mg Take 1 tablet by mouth every 12 (twelve) hours. [facility] metroNIDAZO LE 500 mg tablet 2021-0 8-08 00:00: 00 Yes 500mg Take 1 tablet by mouth every 12 (twelve) hours. [facility] metroNIDAZO LE 500 mg tablet 2021-0 8-08 00:00: 00 Yes 500mg Take 1 tablet by mouth every 12 (twelve) hours. [facility] metroNIDAZO LE 500 mg tablet 2021-0 8-08 00:00: 00 Yes 500mg Take 1 tablet by mouth every 12 (twelve) hours. [facility] metroNIDAZO LE 500 mg tablet 2021-0 8-08 00:00: 00 Yes 500mg Take 1 tablet by mouth every 12 (twelve) hours. [facility] metroNIDAZO LE 500 mg tablet 2-0 8-08 00:00: 00 Yes 500mg Take 1 tablet by mouth every 12 (twelve) hours. [facility] metroNIDAZO LE 500 mg tablet 2-0 8-08 00:00: 00 Yes 500mg Take 1 tablet by mouth every 12 (twelve) hours. [facility] metroNIDAZO LE 500 mg tablet 2-0 8-08 00:00: 00 02-27 00:00 :00 No 500mg Take 1 tablet by mouth every 12 (twelve) hours. [facility] metroNIDAZO LE 500 mg tablet 2-0 8-08 00:00: 00 18 00:00 :00 No 500mg Take 1 tablet by mouth every 12 (twelve) hours. [facility] metroNIDAZO LE 500 mg tablet 8-08 00:00: 00 02-27 00:00 :00 No 500mg Take 1 tablet by mouth every 12 (twelve) hours. [facility] metroNIDAZO LE 500 mg tablet -08 00:00: 00 02-27 00:00 :00 No 500mg Take 1 tablet by mouth every 12 (twelve) hours. [facility] trazodone/d ietary supp. no.8 (TRAZAMINE ORAL) 12-12 15:08: 46 12-12 00:00 :00 No Take by mouth. [facility] diphenhydrA MINE 25 mg capsule 12-12 13:03: 04 Yes 25mg Take 25 mg by mouth every 6 (six) hours as needed for Allergies. [facility] carbamazepi ne (TEGRETOL ORAL) 12-12 13:03: 04 Yes Take by mouth. [facility] citalopram hydrobromid e (CITALOPRAM ORAL) 12-12 13:03: 04 Yes Take by mouth. [facility] ALBUTEROL INHALE 12-12 13:03: 04 Yes [facility] diphenhydrA MINE 25 mg capsule 12-12 13:03: 04 Yes 25mg Take 25 mg by mouth every 6 (six) hours as needed for Allergies. [facility] carbamazepi ne (TEGRETOL ORAL) 12-12 13:03: 04 Yes Take by mouth. [facility] citalopram hydrobromid e (CITALOPRAM ORAL) 12-12 13:03: 04 Yes Take by mouth. [facility] ALBUTEROL INHALE 12-12 13:03: 04 Yes [facility] diphenhydrA MINE 25 mg capsule 12-12 13:03: 04 Yes 25mg Take 25 mg by mouth every 6 (six) hours as needed for Allergies. [facility] carbamazepi ne (TEGRETOL ORAL) 12-12 13:03: 04 Yes Take by mouth. [facility] citalopram hydrobromid e (CITALOPRAM ORAL) 12-12 13:03: 04 Yes Take by mouth. [facility] ALBUTEROL INHALE 12-12 13:03: 04 Yes [facility] diphenhydrA MINE 25 mg capsule 12-12 13:03: 04 Yes 25mg Take 25 mg by mouth every 6 (six) hours as needed for Allergies. [facility] carbamazepi ne (TEGRETOL ORAL) 12-12 13:03: 04 Yes Take by mouth. [facility] citalopram hydrobromid e (CITALOPRAM ORAL) 12-12 13:03: 04 Yes Take by mouth. [facility] ALBUTEROL INHALE 12-12 13:03: 04 Yes [facility] diphenhydrA MINE 25 mg capsule 12-12 13:03: 04 Yes 25mg Take 25 mg by mouth every 6 (six) hours as needed for Allergies. [facility] carbamazepi ne (TEGRETOL ORAL) 12-12 13:03: 04 Yes Take by mouth. [facility] citalopram hydrobromid e (CITALOPRAM ORAL) 12-12 13:03: 04 Yes Take by mouth. [facility] ALBUTEROL INHALE 12-12 13:03: 04 Yes [facility] diphenhydrA MINE 25 mg capsule 12-12 13:03: 04 Yes 25mg Take 25 mg by mouth every 6 (six) hours as needed for Allergies. [facility] carbamazepi ne (TEGRETOL ORAL) 12-12 13:03: 04 Yes Take by mouth. [facility] citalopram hydrobromid e (CITALOPRAM ORAL) 12-12 13:03: 04 Yes Take by mouth. [facility] ALBUTEROL INHALE 12-12 13:03: 04 Yes [facility] diphenhydrA MINE 25 mg capsule 12-12 13:03: 04 Yes 25mg Take 25 mg by mouth every 6 (six) hours as needed for Allergies. [facility] 12-12 13:03: 04 Yes Take by mouth. [facility] citalopram hydrobromid e (CITALOPRAM ORAL) 12-12 13:03: 04 Yes Take by mouth. [facility] AL[facility] INHALE 12-12 13:03: 04 Yes [facility]hen[facility] MINE 25 mg capsule 12-12 13:03: 04 Yes 25mg Take 25 mg by mouth every 6 (six) hours as needed for Allergies. [facility] carbamazepi ne (TEGRETOL ORAL) 12-12 13:03: 04 Yes Take by mouth. [facility] citalopram hydrobromid e (CITALOPRAM ORAL) 12-12 13:03: 04 Yes Take by mouth. [facility] ALBUTEROL INHALE 12-12 13:03: 04 Yes [facility] diphenhydrA MINE 25 mg capsule 12-12 13:03: 04 Yes 25mg Take 25 mg by mouth every 6 (six) hours as needed for Allergies. [facility] carbamazepi ne (TEGRETOL ORAL) 12-12 13:03: 04 Yes Take by mouth. [facility] citalopram hydrobromid e (CITALOPRAM ORAL) 12-12 13:03: 04 Yes Take by mouth. [facility] ALBUTEROL INHALE 12-12 13:03: 04 Yes [facility]hen[facility] MINE 25 mg capsule 12-12 13:03: 04 Yes 25mg Take 25 mg by mouth every 6 (six) hours as needed for Allergies. [facility] carbamazepi ne (TEGRETOL ORAL) 0 12-12 13:03: 04 Yes Take by mouth. [facility] citalopram hydrobromid e (CITALOPRAM ORAL) 12-12 13:03: 04 Yes Take by mouth. [facility] ALBUTEROL INHALE 0 12-12 13:03: 04 Yes [facility] diphenhydrA MINE 25 mg capsule 12-12 13:03: 04 Yes 25mg Take 25 mg by mouth every 6 (six) hours as needed for Allergies. [facility] carbamazepi ne (TEGRETOL ORAL) 12-12 13:03: 04 Yes Take by mouth. [facility] citalopram hydrobromid e (CITALOPRAM ORAL) 12-12 13:03: 04 Yes Take by mouth. [facility] ALBUTEROL INHALE 0 8 13:03: 04 Yes [facility] ALBUTEROL INHALE 2021-0 8 13:03: 04 Yes [facility] ALBUTEROL INHALE 2021-0 8 13:03: 04 Yes [facility] ALBUTEROL INHALE 2021-0 8 13:03: 04 Yes [facility] ALBUTEROL INHALE 2021-0 8 13:03: 04 Yes [facility] ALBUTEROL INHALE 2021-0 8 13:03: 04 Yes [facility] ALBUTEROL INHALE 2021-0 8 13:03: 04 Yes [facility] ALBUTEROL INHALE 2021-0 8 13:03: 04 Yes [facility] ALBUTEROL INHALE 2021-0 8 13:03: 04 Yes [facility] ALBUTEROL INHALE 0 8- 13:03: 04 Yes [facility] ALBUTEROL INHALE 2021-0 8- 13:03: 04 Yes [facility] ALBUTEROL INHALE 2021-0 12-12 13:03: 04 Yes [facility] ALBUTEROL INHALE 2021-0 12-12 13:03: 04 Yes [facility] ALBUTEROL INHALE 0 12-12 13:03: 04 Yes [facility] ALBUTEROL INHALE 2021-0 12-12 13:03: 04 Yes [facility] traZODone 50 mg tablet 2021-0 12-12 00:00: 00 Yes [id number] 50mg Take 1 tablet by mouth at bedtime. [facility] SERTraline (ZOLOFT) 50 mg tablet 2021-0 12-12 00:00: 00 Yes [id number] 50mg Take 1 tablet by mouth in the morning. [facility] traZODone 50 mg tablet 2021-0 12-12 00:00: 00 Yes [id number] 50mg Take 1 tablet by mouth at bedtime. [facility] SERTraline (ZOLOFT) 50 mg tablet 2021-0 12-12 00:00: 00 Yes [id number] 50mg Take 1 tablet by mouth in the morning. [facility] traZODone 50 mg tablet 2021-0 12-12 00:00: 00 Yes [id number] 50mg Take 1 tablet by mouth at bedtime. [facility] SERTraline (ZOLOFT) 50 mg tablet 2021-0 12-12 00:00: 00 Yes [id number] 50mg Take 1 tablet by mouth in the morning. [facility] traZODone 50 mg tablet 2021-0 12-12 00:00: 00 Yes [id number] 50mg Take 1 tablet by mouth at bedtime. [facility] SERTraline (ZOLOFT) 50 mg tablet 2021-0 12-12 00:00: 00 Yes [id number] 50mg Take 1 tablet by mouth in the morning. [facility] traZODone 50 mg tablet 2021-0 - 00:00: 00 Yes [id number] 50mg Take 1 tablet by mouth at bedtime. [facility] SERTraline (ZOLOFT) 50 mg tablet 0 12-12 00:00: 00 Yes [id number] 50mg Take 1 tablet by mouth in the morning. [facility] traZODone 50 mg tablet 0 12-12 00:00: 00 Yes [id number] 50mg Take 1 tablet by mouth at bedtime. [facility] SERTraline (ZOLOFT) 50 mg tablet 0 12-12 00:00: 00 Yes [id number] 50mg Take 1 tablet by mouth in the morning. [facility] traZODone 50 mg tablet 0 12-12 00:00: 00 Yes [id number] 50mg Take 1 tablet by mouth at bedtime. [facility] SERTraline (ZOLOFT) 50 mg tablet 0 12-12 00:00: 00 Yes [id number] 50mg Take 1 tablet by mouth in the morning. [facility] traZODone 50 mg tablet 0 12-12 00:00: 00 Yes [id number] 50mg Take 1 tablet by mouth at bedtime. [facility] SERTraline (ZOLOFT) 50 mg tablet 0 12-12 00:00: 00 Yes [id number] 50mg Take 1 tablet by mouth in the morning. [facility] traZODone 50 mg tablet 0 12-12 00:00: 00 Yes [id number] 50mg Take 1 tablet by mouth at bedtime. [facility] SERTraline (ZOLOFT) 50 mg tablet 0 12-12 00:00: 00 Yes [id number] 50mg Take 1 tablet by mouth in the morning. [facility] traZODone 50 mg tablet 2021-0 12-12 00:00: 00 Yes [id number] 50mg Take 1 tablet by mouth at bedtime. [facility] SERTraline (ZOLOFT) 50 mg tablet 0 12-12 00:00: 00 Yes [id number] 50mg Take 1 tablet by mouth in the morning. [facility] traZODone 50 mg tablet 2021-0 12-12 00:00: 00 Yes [id number] 50mg Take 1 tablet by mouth at bedtime. [facility] SERTraline (ZOLOFT) 50 mg tablet 0 8-02 00:00: 00 Yes [id number] 50mg Take 1 tablet by mouth in the morning. [facility] traZODone 50 mg tablet 2021-0 8-02 00:00: 00 02-27 00:00 :00 No [id number] 50mg Take 1 tablet by mouth at bedtime. [facility] SERTraline (ZOLOFT) 50 mg tablet 0 8- 00:00: 00 02-27 00:00 :00 No [id number] 50mg Take 1 tablet by mouth in the morning. [facility] traZODone 50 mg tablet 8- 00:00: 00 02-27 00:00 :00 No [id number] 50mg Take 1 tablet by mouth at bedtime. [facility] SERTraline (ZOLOFT) 50 mg tablet 0 8- 00:00: 00 02-27 00:00 :00 No [id number] 50mg Take 1 tablet by mouth in the morning. [facility] traZODone 50 mg tablet 0 8- 00:00: 00 02-27 00:00 :00 No [id number] 50mg Take 1 tablet by mouth at bedtime. [facility] SERTraline (ZOLOFT) 50 mg tablet 0 8- 00:00: 00 02-27 00:00 :00 No [id number] 50mg Take 1 tablet by mouth in the morning. [facility] traZODone 50 mg tablet 2021-0 8-02 00:00: 00 02-27 00:00 :00 No [id number] 50mg Take 1 tablet by mouth at bedtime. [facility] SERTraline (ZOLOFT) 50 mg tablet 2021-0 8-02 00:00: 00 02-27 00:00 :00 No [id number] 50mg Take 1 tablet by mouth in the morning. [facility] sulfamethox azole-trime thoprim (BACTRIM DS) 800-160 mg per tablet 8 00:00: 00 12-16 04:59 :00 No [id number] 1{tbl} Take 1 tablet by mouth in the morning and 1 tablet in the evening. Do all this for 3 days. [facility] ibuprofen 600 mg tablet 0 7-15 00:00: 00 Yes [id number] 600mg Take 1 tablet by mouth every 6 (six) hours as needed for Pain (scale 4-6). [facility] ibuprofen 600 mg tablet 0 -15 00:00: 00 Yes [id number] 600mg Take 1 tablet by mouth every 6 (six) hours as needed for Pain (scale 4-6). [facility] ibuprofen 600 mg tablet 0 -15 00:00: 00 Yes [id number] 600mg Take 1 tablet by mouth every 6 (six) hours as needed for Pain (scale 4-6). [facility] ibuprofen 600 mg tablet 0 15 00:00: 00 Yes [id number] 600mg Take 1 tablet by mouth every 6 (six) hours as needed for Pain (scale 4-6). [facility] ibuprofen 600 mg tablet 0 15 00:00: 00 Yes [id number] 600mg Take 1 tablet by mouth every 6 (six) hours as needed for Pain (scale 4-6). [facility] ibuprofen 600 mg tablet 0 7-15 00:00: 00 Yes [id number] 600mg Take 1 tablet by mouth every 6 (six) hours as needed for Pain (scale 4-6). [facility] ibuprofen 600 mg tablet 0 7-15 00:00: 00 Yes [id number] 600mg Take 1 tablet by mouth every 6 (six) hours as needed for Pain (scale 4-6). [facility] ibuprofen 600 mg tablet 0 7-15 00:00: 00 Yes [id number] 600mg Take 1 tablet by mouth every 6 (six) hours as needed for Pain (scale 4-6). [facility] ibuprofen 600 mg tablet 11-24 00:00: 00 Yes [id number] 600mg Take 1 tablet by mouth every 6 (six) hours as needed for Pain (scale 4-6). [facility] ibuprofen 600 mg tablet 11-24 00:00: 00 Yes [id number] 600mg Take 1 tablet by mouth every 6 (six) hours as needed for Pain (scale 4-6). [facility] ibuprofen 600 mg tablet 11-24 00:00: 00 Yes [id number] 600mg Take 1 tablet by mouth every 6 (six) hours as needed for Pain (scale 4-6). [facility] ibuprofen 600 mg tablet 11-24 00:00: 00 02-27 00:00 :00 No [id number] 600mg Take 1 tablet by mouth every 6 (six) hours as needed for Pain (scale 4-6). [facility] ibuprofen 600 mg tablet 11-24 00:00: 00 02-27 00:00 :00 No [id number] 600mg Take 1 tablet by mouth every 6 (six) hours as needed for Pain (scale 4-6). [facility] ibuprofen 600 mg tablet 11-24 00:00: 00 02-27 00:00 :00 No [id number] 600mg Take 1 tablet by mouth every 6 (six) hours as needed for Pain (scale 4-6). [facility] ibuprofen 600 mg tablet 11-24 00:00: 00 02-27 00:00 :00 No [id number] 600mg Take 1 tablet by mouth every 6 (six) hours as needed for Pain (scale 4-6). [facility] ibuprofen 600 mg tablet 11-24 00:00: 00 02-27 00:00 :00 No [id number] 600mg Take 1 tablet by mouth every 6 (six) hours as needed for Pain (scale 4-6). [facility] acetaminoph en-codeine 300-30 mg tablet 11-24 00:00: 00 12-12 00:00 :00 No [id number] 1{tbl} Take 1 tablet by mouth every 4 (four) hours as needed for Pain (scale 4-6). Indication s: acute pain [facility] acetaminoph en-codeine 300-30 mg tablet 11-24 00:00: 00 12-12 00:00 :00 No [id number] 1{tbl} Take 1 tablet by mouth every 4 (four) hours as needed for Pain (scale 4-6). Indication s: acute pain [facility] bromphenira mine-pseudo ephedrine-D M (BROMFED DM) 2-30-10 mg/5 mL syrup 11-18 00:00: 00 Yes [id number] 5mL Take 5 mL by mouth 4 (four) times daily as needed for Congestion /Allergies or Cough. [facility] naproxen 500 mg tablet 11-18 00:00: 00 Yes [id number] 500mg Take 1 tablet by mouth every 8 (eight) hours as needed for Pain (scale 4-6). [facility] cyclobenzap rine 10 mg tablet 11-18 00:00: 00 Yes [id number] 10mg Take 1 tablet by mouth at bedtime as needed for Muscle Spasms. [facility] bromphenira mine-pseudo ephedrine-D M (BROMFED DM) 2-30-10 mg/5 mL syrup 11-18 00:00: 00 Yes [id number] 5mL Take 5 mL by mouth 4 (four) times daily as needed for Congestion /Allergies or Cough. [facility] naproxen 500 mg tablet 11-18 00:00: 00 Yes [id number] 500mg Take 1 tablet by mouth every 8 (eight) hours as needed for Pain (scale 4-6). [facility] cyclobenzap rine 10 mg tablet 11-18 00:00: 00 Yes [id number] 10mg Take 1 tablet by mouth at bedtime as needed for Muscle Spasms. [facility] bromphenira mine-pseudo ephedrine-D M (BROMFED DM) 2-30-10 mg/5 mL syrup 0 11-18 00:00: 00 Yes [id number] 5mL Take 5 mL by mouth 4 (four) times daily as needed for Congestion /Allergies or Cough. [facility] naproxen 500 mg tablet 11-18 00:00: 00 Yes [id number] 500mg Take 1 tablet by mouth every 8 (eight) hours as needed for Pain (scale 4-6). [facility] cyclobenzap rine 10 mg tablet 11-18 00:00: 00 Yes [id number] 10mg Take 1 tablet by mouth at bedtime as needed for Muscle Spasms. [facility] bromphenira mine-pseudo ephedrine-D M (BROMFED DM) 2-30-10 mg/5 mL syrup 11-18 00:00: 00 Yes [id number] 5mL Take 5 mL by mouth 4 (four) times daily as needed for Congestion /Allergies or Cough. [facility] naproxen 500 mg tablet 11-18 00:00: 00 Yes [id number] 500mg Take 1 tablet by mouth every 8 (eight) hours as needed for Pain (scale 4-6). [facility] cyclobenzap rine 10 mg tablet 11-18 00:00: 00 Yes [id number] 10mg Take 1 tablet by mouth at bedtime as needed for Muscle Spasms. [facility] bromphenira mine-pseudo ephedrine-D M (BROMFED DM) 2-30-10 mg/5 mL syrup 11-18 00:00: 00 Yes [id number] 5mL Take 5 mL by mouth 4 (four) times daily as needed for Congestion /Allergies or Cough. [facility] naproxen 500 mg tablet 11-18 00:00: 00 Yes [id number] 500mg Take 1 tablet by mouth every 8 (eight) hours as needed for Pain (scale 4-6). [facility] cyclobenzap rine 10 mg tablet 11-18 00:00: 00 Yes [id number] 10mg Take 1 tablet by mouth at bedtime as needed for Muscle Spasms. [facility] bromphenira mine-pseudo ephedrine-D M (BROMFED DM) 2-30-10 mg/5 mL syrup 0 11-18 00:00: 00 Yes [id number] 5mL Take 5 mL by mouth 4 (four) times daily as needed for Congestion /Allergies or Cough. [facility] naproxen 500 mg tablet 2021-0 11-18 00:00: 00 Yes [id number] 500mg Take 1 tablet by mouth every 8 (eight) hours as needed for Pain (scale 4-6). [facility] cyclobenzap rine 10 mg tablet 0 11-18 00:00: 00 Yes [id number] 10mg Take 1 tablet by mouth at bedtime as needed for Muscle Spasms. [facility] bromphenira mine-pseudo ephedrine-D M (BROMFED DM) 2-30-10 mg/5 mL syrup 0 11-18 00:00: 00 Yes [id number] 5mL Take 5 mL by mouth 4 (four) times daily as needed for Congestion /Allergies or Cough. [facility] naproxen 500 mg tablet 0 11-18 00:00: 00 Yes [id number] 500mg Take 1 tablet by mouth every 8 (eight) hours as needed for Pain (scale 4-6). [facility] cyclobenzap rine 10 mg tablet 2021-0 11-18 00:00: 00 Yes [id number] 10mg Take 1 tablet by mouth at bedtime as needed for Muscle Spasms. [facility] bromphenira mine-pseudo ephedrine-D M (BROMFED DM) 2-30-10 mg/5 mL syrup 0 11-18 00:00: 00 Yes [id number] 5mL Take 5 mL by mouth 4 (four) times daily as needed for Congestion /Allergies or Cough. [facility] naproxen 500 mg tablet 0 11-18 00:00: 00 Yes [id number] 500mg Take 1 tablet by mouth every 8 (eight) hours as needed for Pain (scale 4-6). [facility] cyclobenzap rine 10 mg tablet 11-18 00:00: 00 Yes [id number] 10mg Take 1 tablet by mouth at bedtime as needed for Muscle Spasms. [facility] bromphenira mine-pseudo ephedrine-D M (BROMFED DM) 2-30-10 mg/5 mL syrup 11-18 00:00: 00 Yes [id number] 5mL Take 5 mL by mouth 4 (four) times daily as needed for Congestion /Allergies or Cough. [facility] naproxen 500 mg tablet 11-18 00:00: 00 Yes [id number] 500mg Take 1 tablet by mouth every 8 (eight) hours as needed for Pain (scale 4-6). [facility] cyclobenzap rine 10 mg tablet 11-18 00:00: 00 Yes [id number] 10mg Take 1 tablet by mouth at bedtime as needed for Muscle Spasms. [facility] bromphenira mine-pseudo ephedrine-D M (BROMFED DM) 2-30-10 mg/5 mL syrup 11-18 00:00: 00 Yes [id number] 5mL Take 5 mL by mouth 4 (four) times daily as needed for Congestion /Allergies or Cough. [facility] naproxen 500 mg tablet 11-18 00:00: 00 Yes [id number] 500mg Take 1 tablet by mouth every 8 (eight) hours as needed for Pain (scale 4-6). [facility] cyclobenzap rine 10 mg tablet 11-18 00:00: 00 Yes [id number] 10mg Take 1 tablet by mouth at bedtime as needed for Muscle Spasms. [facility] bromphenira mine-pseudo ephedrine-D M (BROMFED DM) 2-30-10 mg/5 mL syrup 11-18 00:00: 00 Yes [id number] 5mL Take 5 mL by mouth 4 (four) times daily as needed for Congestion /Allergies or Cough. [facility] naproxen 500 mg tablet 11-18 00:00: 00 Yes [id number] 500mg Take 1 tablet by mouth every 8 (eight) hours as needed for Pain (scale 4-6). [facility] cyclobenzap rine 10 mg tablet 11-18 00:00: 00 Yes [id number] 10mg Take 1 tablet by mouth at bedtime as needed for Muscle Spasms. [facility] bromphenira mine-pseudo ephedrine-D M (BROMFED DM) 2-30-10 mg/5 mL syrup 0 11-18 00:00: 00 Yes [id number] 5mL Take 5 mL by mouth 4 (four) times daily as needed for Congestion /Allergies or Cough. [facility] bromphenira mine-pseudo ephedrine-D M (BROMFED DM) 2-30-10 mg/5 mL syrup 0 11-18 00:00: 00 Yes [id number] 5mL Take 5 mL by mouth 4 (four) times daily as needed for Congestion /Allergies or Cough. [facility] bromphenira mine-pseudo ephedrine-D M (BROMFED DM) 2-30-10 mg/5 mL syrup 0 11-18 00:00: 00 Yes [id number] 5mL Take 5 mL by mouth 4 (four) times daily as needed for Congestion /Allergies or Cough. [facility] bromphenira mine-pseudo ephedrine-D M (BROMFED DM) 2-30-10 mg/5 mL syrup 2021-0 11-18 00:00: 00 Yes [id number] 5mL Take 5 mL by mouth 4 (four) times daily as needed for Congestion /Allergies or Cough. [facility] bromphenira mine-pseudo ephedrine-D M (BROMFED DM) 2-30-10 mg/5 mL syrup 0 11-18 00:00: 00 Yes [id number] 5mL Take 5 mL by mouth 4 (four) times daily as needed for Congestion /Allergies or Cough. [facility] bromphenira mine-pseudo ephedrine-D M (BROMFED DM) 2-30-10 mg/5 mL syrup 0 11-18 00:00: 00 Yes [id number] 5mL Take 5 mL by mouth 4 (four) times daily as needed for Congestion /Allergies or Cough. [facility] bromphenira mine-pseudo ephedrine-D M (BROMFED DM) 2-30-10 mg/5 mL syrup 2022-0 7- 00:00: 00 Yes [id number] 5mL Take 5 mL by mouth 4 (four) times daily as needed for Congestion /Allergies or Cough. [facility] bromphenira mine-pseudo ephedrine-D M (BROMFED DM) 2-30-10 mg/5 mL syrup 2022-0 7- 00:00: 00 Yes [id number] 5mL Take 5 mL by mouth 4 (four) times daily as needed for Congestion /Allergies or Cough. [facility] bromphenira mine-pseudo ephedrine-D M (BROMFED DM) 2-30-10 mg/5 mL syrup 2022-0 7- 00:00: 00 Yes [id number] 5mL Take 5 mL by mouth 4 (four) times daily as needed for Congestion /Allergies or Cough. [facility] bromphenira mine-pseudo ephedrine-D M (BROMFED DM) 2-30-10 mg/5 mL syrup 2-0 7 00:00: 00 Yes [id number] 5mL Take 5 mL by mouth 4 (four) times daily as needed for Congestion /Allergies or Cough. [facility] bromphenira mine-pseudo ephedrine-D M (BROMFED DM) 2-30-10 mg/5 mL syrup 2022-0 7 00:00: 00 Yes [id number] 5mL Take 5 mL by mouth 4 (four) times daily as needed for Congestion /Allergies or Cough. [facility] bromphenira mine-pseudo ephedrine-D M (BROMFED DM) 2-30-10 mg/5 mL syrup 2022-0 7- 00:00: 00 Yes [id number] 5mL Take 5 mL by mouth 4 (four) times daily as needed for Congestion /Allergies or Cough. [facility] bromphenira mine-pseudo ephedrine-D M (BROMFED DM) 2-30-10 mg/5 mL syrup 2022-0 7- 00:00: 00 Yes [id number] 5mL Take 5 mL by mouth 4 (four) times daily as needed for Congestion /Allergies or Cough. [facility] bromphenira mine-pseudo ephedrine-D M (BROMFED DM) 2-30-10 mg/5 mL syrup 0 11-18 00:00: 00 Yes [id number] 5mL Take 5 mL by mouth 4 (four) times daily as needed for Congestion /Allergies or Cough. [facility] bromphenira mine-pseudo ephedrine-D M (BROMFED DM) 2-30-10 mg/5 mL syrup 0 11-18 00:00: 00 03-24 00:00 :00 No [id number] 5mL Take 5 mL by mouth 4 (four) times daily as needed for Congestion /Allergies or Cough. [facility] bromphenira mine-pseudo ephedrine-D M (BROMFED DM) 2-30-10 mg/5 mL syrup 0 11-18 00:00: 00 03-24 00:00 :00 No [id number] 5mL Take 5 mL by mouth 4 (four) times daily as needed for Congestion /Allergies or Cough. [facility] naproxen 500 mg tablet 11-18 00:00: 00 02-27 00:00 :00 No [id number] 500mg Take 1 tablet by mouth every 8 (eight) hours as needed for Pain (scale 4-6). [facility] cyclobenzap rine 10 mg tablet 11-18 00:00: 00 02-27 00:00 :00 No [id number] 10mg Take 1 tablet by mouth at bedtime as needed for Muscle Spasms. [facility] naproxen 500 mg tablet 11-18 00:00: 00 02-27 00:00 :00 No [id number] 500mg Take 1 tablet by mouth every 8 (eight) hours as needed for Pain (scale 4-6). [facility] cyclobenzap rine 10 mg tablet 11-18 00:00: 00 02-27 00:00 :00 No [id number] 10mg Take 1 tablet by mouth at bedtime as needed for Muscle Spasms. [facility] naproxen 500 mg tablet 11-18 00:00: 00 02-27 00:00 :00 No [id number] 500mg Take 1 tablet by mouth every 8 (eight) hours as needed for Pain (scale 4-6). [facility] cyclobenzap rine 10 mg tablet 11-18 00:00: 00 02-27 00:00 :00 No [id number] 10mg Take 1 tablet by mouth at bedtime as needed for Muscle Spasms. [facility] naproxen 500 mg tablet 11-18 00:00: 00 02-27 00:00 :00 No [id number] 500mg Take 1 tablet by mouth every 8 (eight) hours as needed for Pain (scale 4-6). [facility] cyclobenzap rine 10 mg tablet 11-18 00:00: 00 02-27 00:00 :00 No [id number] 10mg Take 1 tablet by mouth at bedtime as needed for Muscle Spasms. [facility] naproxen 500 mg tablet 11-18 00:00: 00 02-27 00:00 :00 No [id number] 500mg Take 1 tablet by mouth every 8 (eight) hours as needed for Pain (scale 4-6). [facility] cyclobenzap rine 10 mg tablet 11-18 00:00: 00 02-27 00:00 :00 No [id number] 10mg Take 1 tablet by mouth at bedtime as needed for Muscle Spasms. [facility] ibuprofen 100 mg/5 mL oral suspension 10-25 00:00: 00 Yes [id number] 605mg Take 30.25 mL by mouth every 6 (six) hours as needed for Pain (scale 4-6) or Temp > 38.5 C. [facility] ibuprofen 100 mg/5 mL oral suspension 10-25 00:00: 00 Yes [id number] 605mg Take 30.25 mL by mouth every 6 (six) hours as needed for Pain (scale 4-6) or Temp > 38.5 C. [facility] ibuprofen 100 mg/5 mL oral suspension 10-25 00:00: 00 Yes [id number] 605mg Take 30.25 mL by mouth every 6 (six) hours as needed for Pain (scale 4-6) or Temp > 38.5 C. [facility] ibuprofen 100 mg/5 mL oral suspension 10-25 00:00: 00 Yes [id number] 605mg Take 30.25 mL by mouth every 6 (six) hours as needed for Pain (scale 4-6) or Temp > 38.5 C. [facility] ibuprofen 100 mg/5 mL oral suspension 10-25 00:00: 00 Yes [id number] 605mg Take 30.25 mL by mouth every 6 (six) hours as needed for Pain (scale 4-6) or Temp > 38.5 C. [facility] ibuprofen 100 mg/5 mL oral suspension 10-25 00:00: 00 Yes [id number] 605mg Take 30.25 mL by mouth every 6 (six) hours as needed for Pain (scale 4-6) or Temp > 38.5 C. [facility] ibuprofen 100 mg/5 mL oral suspension 10-25 00:00: 00 Yes [id number] 605mg Take 30.25 mL by mouth every 6 (six) hours as needed for Pain (scale 4-6) or Temp > 38.5 C. [facility] ibuprofen 100 mg/5 mL oral suspension 10-25 00:00: 00 Yes [id number] 605mg Take 30.25 mL by mouth every 6 (six) hours as needed for Pain (scale 4-6) or Temp > 38.5 C. [facility] ibuprofen 100 mg/5 mL oral suspension 10-25 00:00: 00 Yes [id number] 605mg Take 30.25 mL by mouth every 6 (six) hours as needed for Pain (scale 4-6) or Temp > 38.5 C. [facility] ibuprofen 100 mg/5 mL oral suspension 10-25 00:00: 00 Yes [id number] 605mg Take 30.25 mL by mouth every 6 (six) hours as needed for Pain (scale 4-6) or Temp > 38.5 C. [facility] ibuprofen 100 mg/5 mL oral suspension 10-25 00:00: 00 Yes [id number] 605mg Take 30.25 mL by mouth every 6 (six) hours as needed for Pain (scale 4-6) or Temp > 38.5 C. [facility] ibuprofen 100 mg/5 mL oral suspension 10-25 00:00: 00 02-27 00:00 :00 No [id number] 605mg Take 30.25 mL by mouth every 6 (six) hours as needed for Pain (scale 4-6) or Temp > 38.5 C. [facility] ibuprofen 100 mg/5 mL oral suspension 10-25 00:00: 00 02-27 00:00 :00 No [id number] 605mg Take 30.25 mL by mouth every 6 (six) hours as needed for Pain (scale 4-6) or Temp > 38.5 C. [facility] ibuprofen 100 mg/5 mL oral suspension 10-25 00:00: 00 02-27 00:00 :00 No [id number] 605mg Take 30.25 mL by mouth every 6 (six) hours as needed for Pain (scale 4-6) or Temp > 38.5 C. [facility] ibuprofen 100 mg/5 mL oral suspension 10-25 00:00: 00 02-27 00:00 :00 No [id number] 605mg Take 30.25 mL by mouth every 6 (six) hours as needed for Pain (scale 4-6) or Temp > 38.5 C. [facility] ibuprofen 100 mg/5 mL oral suspension 10-25 00:00: 00 02-27 00:00 :00 No [id number] 605mg Take 30.25 mL by mouth every 6 (six) hours as needed for Pain (scale 4-6) or Temp > 38.5 C[facility] [facility] acetaminoph en 160 mg/5 mL liquid 2-0 6-15 00:00: 00 12-12 00:00 :00 No [id number] 608mg Take 19 mL by mouth every 6 (six) hours as needed for Fever. [facility] acetaminoph en 160 mg/5 mL liquid 2-0 6-15 00:00: 00 12-12 00:00 :00 No [id number] 608mg Take 19 mL by mouth every 6 (six) hours as needed for Fever. [facility] DULoxetine 60 mg capsule 2-0 -27 00:00: 00 Yes [facility] DULoxetine 60 mg capsule 2-0 27 00:00: 00 Yes [facility] DULoxetine 60 mg capsule 2-0 27 00:00: 00 Yes [facility] DULoxetine 60 mg capsule 2-0 27 00:00: 00 Yes [facility] DULoxetine 60 mg capsule 2-0 -27 00:00: 00 Yes [facility] DULoxetine 60 mg capsule 2-0 -27 00:00: 00 Yes [facility] DULoxetine 60 mg capsule 2-0 27 00:00: 00 Yes [facility] DULoxetine 60 mg capsule 2-0 27 00:00: 00 Yes [facility] DULoxetine 60 mg capsule 2-0 27 00:00: 00 Yes [facility] DULoxetine 60 mg capsule 2-0 27 00:00: 00 Yes [facility] DULoxetine 60 mg capsule 2-0 -27 00:00: 00 Yes [facility] DULoxetine 60 mg capsule 2-0 -27 00:00: 00 02-27 00:00 :00 No [facility] DULoxetine 60 mg capsule 2-0 5-27 00:00: 00 02-27 00:00 :00 No [facility] DULoxetine 60 mg capsule 2-0 27 00:00: 00 02-27 00:00 :00 No [facility] DULoxetine 60 mg capsule 10-06 00:00: 00 02-27 00:00 :00 No [facility] traZODone 50 mg tablet 10-06 00:00: 00 12-12 00:00 :00 No [facility] mometasone 50 mcg/actuati on nasal spray 09-28 00:00: 00 Yes [id number] 1{spray } Use 1 [place] in each nostril 2 (two) times daily. [facility] mometasone 50 mcg/actuati on nasal spray 0 09-28 00:00: 00 Yes [id number] 1{spray } Use 1 [place] in each nostril 2 (two) times daily. [facility] mometasone 50 mcg/actuati on nasal spray 0 09-28 00:00: 00 Yes [id number] 1{spray } Use 1 [place] in each nostril 2 (two) times daily. [facility] mometasone 50 mcg/actuati on nasal spray 2021-0 09-28 00:00: 00 Yes [id number] 1{spray } Use 1 [place] in each nostril 2 (two) times daily. [facility] mometasone 50 mcg/actuati on nasal spray 0 09-28 00:00: 00 Yes [id number] 1{spray } Use 1 [place] in each nostril 2 (two) times daily. [facility] mometasone 50 mcg/actuati on nasal spray 2021-0 19 00:00: 00 Yes [id number] 1{spray } Use 1 [place] in each nostril 2 (two) times daily. [facility] mometasone 50 mcg/actuati on nasal spray 2021-0 19 00:00: 00 Yes [id number] 1{spray } Use 1 [place] in each nostril 2 (two) times daily. [facility] mometasone 50 mcg/actuati on nasal spray 2021-0 19 00:00: 00 Yes [id number] 1{spray } Use 1 [place] in each nostril 2 (two) times daily. [facility] mometasone 50 mcg/actuati on nasal spray 2021-0 5-19 00:00: 00 Yes [id number] 1{spray } Use 1 [place] in each nostril 2 (two) times daily. [facility] mometasone 50 mcg/actuati on nasal spray 2021-0 5-19 00:00: 00 Yes [id number] 1{spray } Use 1 [place] in each nostril 2 (two) times daily. [facility] mometasone 50 mcg/actuati on nasal spray 2021-0 5-19 00:00: 00 Yes [id number] 1{spray } Use 1 [place] in each nostril 2 (two) times daily. [facility] mometasone 50 mcg/actuati on nasal spray 2021-0 5-19 00:00: 00 02-27 00:00 :00 No [id number] 1{spray } Use 1 [place] in each nostril 2 (two) times daily. [facility] mometasone 50 mcg/actuati on nasal spray 2021-0 5-19 00:00: 00 02-27 00:00 :00 No [id number] 1{spray } Use 1 [place] in each nostril 2 (two) times daily. [facility] mometasone 50 mcg/actuati on nasal spray 2021-0 5-19 00:00: 00 02-27 00:00 :00 No [id number] 1{spray } Use 1 [place] in each nostril 2 (two) times daily. [facility] mometasone 50 mcg/actuati on nasal spray 2021-0 5-19 00:00: 00 02-27 00:00 :00 No [id number] 1{spray } Use 1 [place] in each nostril 2 (two) times daily. [facility] mometasone 50 mcg/actuati on nasal spray 2021-0 5-19 00:00: 00 02-27 00:00 :00 No [id number] 1{spray } Use 1 [place] in each nostril 2 (two) times daily. [facility] cetirizine (ZYRTEC) 10 mg tablet 2-0 5-16 00:00: 00 Yes [id number] 10mg Take 1 tablet by mouth daily. [facility] cetirizine (ZYRTEC) 10 mg tablet 2-0 5-16 00:00: 00 Yes [id number] 10mg Take 1 tablet by mouth daily. [facility] cetirizine (ZYRTEC) 10 mg tablet 2-0 5-16 00:00: 00 Yes [id number] 10mg Take 1 tablet by mouth daily. [facility] cetirizine (ZYRTEC) 10 mg tablet 2021-0 5-16 00:00: 00 Yes [id number] 10mg Take 1 tablet by mouth daily. [facility] cetirizine (ZYRTEC) 10 mg tablet 2-0 5-16 00:00: 00 Yes [id number] 10mg Take 1 tablet by mouth daily. [facility] cetirizine (ZYRTEC) 10 mg tablet 2-0 5-16 00:00: 00 Yes [id number] 10mg Take 1 tablet by mouth daily. [facility] cetirizine (ZYRTEC) 10 mg tablet 2021-0 5-16 00:00: 00 Yes [id number] 10mg Take 1 tablet by mouth daily. [facility] cetirizine (ZYRTEC) 10 mg tablet 2-0 5-16 00:00: 00 Yes [id number] 10mg Take 1 tablet by mouth daily. [facility] cetirizine (ZYRTEC) 10 mg tablet 2-0 5-16 00:00: 00 Yes [id number] 10mg Take 1 tablet by mouth daily. [facility] cetirizine (ZYRTEC) 10 mg tablet 2-0 5-16 00:00: 00 Yes [id number] 10mg Take 1 tablet by mouth daily. [facility] cetirizine (ZYRTEC) 10 mg tablet 2-0 5-16 00:00: 00 Yes [id number] 10mg Take 1 tablet by mouth daily. [facility] 10 mg tablet 2021-0 5-16 00:00: 00 02-27 00:00 :00 No [id number] 10mg Take 1 tablet by mouth daily. [facility] cetirizine (ZYRTEC) 10 mg tablet 2021-0 5-16 00:00: 00 02-27 00:00 :00 No [id number] 10mg Take 1 tablet by mouth daily. [facility] cetirizine (ZYRTEC) 10 mg tablet 2021-0 5-16 00:00: 00 02-27 00:00 :00 No [id number] 10mg Take 1 tablet by mouth daily. [facility] cetirizine (ZYRTEC) 10 mg tablet 2021-0 5-16 00:00: 00 02-27 00:00 :00 No [id number] 10mg Take 1 tablet by mouth daily. [facility] cetirizine (ZYRTEC) 10 mg tablet 2021-0 -16 00:00: 00 02-27 00:00 :00 No [id number] 10mg Take 1 tablet by mouth daily. [facility] mg [facility] 2021-0 09 00:00: 00 Yes [facility] gabapentin 300 mg capsule 2021-0 09-18 00:00: 00 Yes [facility] ondansetron 4 mg tablet 2021-0 09-18 00:00: 00 Yes [facility] DULoxetine 30 mg capsule 2021-0 -09 00:00: 00 Yes [facility] gabapentin 300 mg capsule 2-0 09-18 00:00: 00 Yes [facility] ondansetron 4 mg tablet 2021-0 - 00:00: 00 Yes [facility] DULoxetine 30 mg capsule 2-0 - 00:00: 00 Yes [facility] gabapentin 300 mg capsule 2-0 - 00:00: 00 Yes [facility] ondansetron 4 mg tablet 2021-0 -09 00:00: 00 Yes [facility] DULoxetine 30 mg capsule 2-0 09-18 00:00: 00 Yes [facility] gabapentin 300 mg capsule 2-0 09-18 00:00: 00 Yes [facility] ondansetron 4 mg tablet 2-0 09-18 00:00: 00 Yes [facility] DULoxetine 30 mg capsule 2-0 09-18 00:00: 00 Yes [facility] gabapentin 300 mg capsule 2-0 09-18 00:00: 00 Yes [facility] ondansetron 4 mg tablet 2-0 09-18 00:00: 00 Yes [facility] DULoxetine 30 mg capsule 2-0 09-18 00:00: 00 Yes [facility] gabapentin 300 mg capsule 2-0 09-18 00:00: 00 Yes [facility] ondansetron 4 mg tablet 2-0 09-18 00:00: 00 Yes [facility] DULoxetine 30 mg capsule 2-0 09-18 00:00: 00 Yes [facility] gabapentin 300 mg capsule 2-0 09-18 00:00: 00 Yes [facility] ondansetron 4 mg tablet 2-0 09-18 00:00: 00 Yes [facility] DULoxetine 30 mg capsule 2-0 09-18 00:00: 00 Yes [facility] gabapentin 300 mg capsule 2-0 09-18 00:00: 00 Yes [facility] ondansetron 4 mg tablet 2-0 09-18 00:00: 00 Yes [facility] DULoxetine 30 mg capsule 2-0 09-18 00:00: 00 Yes [facility] gabapentin 300 mg capsule 2-0 09-18 00:00: 00 Yes [facility] ondansetron 4 mg tablet 2-0 09-18 00:00: 00 Yes [facility] DULoxetine 30 mg capsule 2-0 09-18 00:00: 00 Yes [facility] gabapentin 300 mg capsule 2-0 - 00:00: 00 Yes [facility] ondansetron 4 mg tablet 2-0 - 00:00: 00 Yes [facility] DULoxetine 30 mg capsule 2-0 - 00:00: 00 Yes [facility] gabapentin 300 mg capsule 2-0 09-18 00:00: 00 Yes [facility] ondansetron 4 mg tablet 2021-0 - 00:00: 00 Yes [facility] DULoxetine 30 mg capsule 2-0 09-18 00:00: 00 02-27 00:00 :00 No [facility] gabapentin 300 mg capsule 2021-0 09-18 00:00: 00 02-27 00:00 :00 No [facility] ondansetron 4 mg tablet 2021-0 09-18 00:00: 00 02-27 00:00 :00 No [facility] DULoxetine 30 mg capsule 2021-0 09-18 00:00: 00 02-27 00:00 :00 No [facility] gabapentin 300 mg capsule 2021-0 09-18 00:00: 00 02-27 00:00 :00 No [facility] ondansetron 4 mg tablet 2021-0 09-18 00:00: 00 02-27 00:00 :00 No [facility] DULoxetine 30 mg capsule 2021-0 09-18 00:00: 00 02-27 00:00 :00 No [facility] gabapentin 300 mg capsule 2021-0 09-18 00:00: 00 02-27 00:00 :00 No [facility] ondansetron 4 mg tablet 2021-0 09-18 00:00: 00 02-27 00:00 :00 No [facility] DULoxetine 30 mg capsule 2-0 - 00:00: 00 02-27 00:00 :00 No [facility] gabapentin 300 mg capsule 2021-0 00:00: 00 02-27 00:00 :00 No [facility] ondansetron 4 mg tablet 09-18 00:00: 00 02-27 00:00 :00 No [facility] DULoxetine 30 mg capsule 09-18 00:00: 00 02-27 00:00 :00 No [facility] gabapentin 300 mg capsule 09-18 00:00: 00 02-27 00:00 :00 No [facility] ondansetron 4 mg tablet 09-18 00:00: 00 02-27 00:00 :00 No [facility] amLODIPine 5 mg tablet 09-01 00:00: 00 Yes [facility] amLODIPine 5 mg tablet 0 09-01 00:00: 00 Yes 5mg Take 5 mg by mouth. [facility] amLODIPine 5 mg tablet 0 09-01 00:00: 00 Yes [facility] amLODIPine 5 mg tablet 0 09-01 00:00: 00 Yes 5mg Take 5 mg by mouth. [facility] amLODIPine 5 mg tablet 0 09-01 00:00: 00 Yes [facility] amLODIPine 5 mg tablet 0 09-01 00:00: 00 Yes 5mg Take 5 mg by mouth. [facility] amLODIPine 5 mg tablet 0 09-01 00:00: 00 Yes [facility] amLODIPine 5 mg tablet 0 09-01 00:00: 00 Yes 5mg Take 5 mg by mouth. [facility] amLODIPine 5 mg tablet 0 09-01 00:00: 00 Yes [facility] amLODIPine 5 mg tablet 0 09-01 00:00: 00 Yes 5mg Take 5 mg by mouth. [facility] amLODIPine 5 mg tablet 0 09-01 00:00: 00 Yes [facility] amLODIPine 5 mg tablet 0 09-01 00:00: 00 Yes 5mg Take 5 mg by mouth. [facility] amLODIPine 5 mg tablet 0 09-01 00:00: 00 Yes [facility] amLODIPine 5 mg tablet 0 09-01 00:00: 00 Yes 5mg Take 5 mg by mouth. [facility] amLODIPine 5 mg tablet 0 09-01 00:00: 00 Yes [facility] amLODIPine 5 mg tablet 0 09-01 00:00: 00 Yes 5mg Take 5 mg by mouth. [facility] amLODIPine 5 mg tablet 0 09-01 00:00: 00 Yes [facility] amLODIPine 5 mg tablet 0 09-01 00:00: 00 Yes 5mg Take 5 mg by mouth. [facility] amLODIPine 5 mg tablet 0 09-01 00:00: 00 Yes [facility] amLODIPine 5 mg tablet 0 09-01 00:00: 00 Yes 5mg Take 5 mg by mouth. [facility] amLODIPine 5 mg tablet 0 09-01 00:00: 00 Yes [facility] amLODIPine 5 mg tablet 0 09-01 00:00: 00 Yes 5mg Take 5 mg by mouth. [facility] amLODIPine 5 mg tablet 0 09-01 00:00: 00 02-27 00:00 :00 No [facility] amLODIPine 5 mg tablet 0 09-01 00:00: 00 02-27 00:00 :00 No 5mg Take 5 mg by mouth. [facility] amLODIPine 5 mg tablet 0 09-01 00:00: 00 02-27 00:00 :00 No [facility] amLODIPine 5 mg tablet 0 09-01 00:00: 00 02-27 00:00 :00 No 5mg Take 5 mg by mouth. [facility] amLODIPine 5 mg tablet 2021-0 09-01 00:00: 00 02-27 00:00 :00 No [facility] amLODIPine 5 mg tablet 2021-0 422 00:00: 00 02-27 00:00 :00 No 5mg Take 5 mg by mouth. [facility] amLODIPine 5 mg tablet 2021-0 422 00:00: 00 02-27 00:00 :00 No [facility] amLODIPine 5 mg tablet 0 09-01 00:00: 00 02-27 00:00 :00 No 5mg Take 5 mg by mouth. [facility] amLODIPine 5 mg tablet 0 09-01 00:00: 00 02-27 00:00 :00 No [facility] amLODIPine 5 mg tablet 0 09-01 00:00: 00 02-27 00:00 :00 No 5mg Take 5 mg by mouth. [facility] buPROPion XL 150 mg 24 hr tablet 2021-0 20 00:00: 00 Yes [facility] buPROPion XL 150 mg 24 hr tablet 2021-0 4-20 00:00: 00 Yes [facility] buPROPion XL 150 mg 24 hr tablet 2021-0 4-20 00:00: 00 Yes [facility] buPROPion XL 150 mg 24 hr tablet 2021-0 4-20 00:00: 00 Yes [facility] buPROPion XL 150 mg 24 hr tablet 2021-0 4-20 00:00: 00 Yes [facility] buPROPion XL 150 mg 24 hr tablet 2021-0 4-20 00:00: 00 Yes [facility] buPROPion XL 150 mg 24 hr tablet 2021-0 4-20 00:00: 00 Yes [facility] buPROPion XL 150 mg 24 hr tablet 2021-0 4-20 00:00: 00 Yes [facility] buPROPion XL 150 mg 24 hr tablet 2-0 4-20 00:00: 00 Yes [facility] buPROPion XL 150 mg 24 hr tablet 2021-0 4-20 00:00: 00 Yes [facility] buPROPion XL 150 mg 24 hr tablet 2-0 4-20 00:00: 00 Yes [facility] buPROPion XL 150 mg 24 hr tablet 2021-0 4-20 00:00: 00 08-31 04:59 :00 No 150mg Take 150 mg by mouth. [facility] buPROPion XL 150 mg 24 hr tablet 2021-0 4-20 00:00: 00 08-31 04:59 :00 No 150mg Take 150 mg by mouth. [facility] buPROPion XL 150 mg 24 hr tablet 2021-0 4-20 00:00: 00 08-31 04:59 :00 No 150mg Take 150 mg by mouth. [facility] buPROPion XL 150 mg 24 hr tablet 2021-0 4-20 00:00: 00 08-31 04:59 :00 No 150mg Take 150 mg by mouth. [facility] buPROPion XL 150 mg 24 hr tablet 2021-0 4-20 00:00: 00 08-31 04:59 :00 No 150mg Take 150 mg by mouth. [facility] buPROPion XL 150 mg 24 hr tablet 2021-0 4-20 00:00: 00 08-31 04:59 :00 No 150mg Take 150 mg by mouth. [facility] buPROPion XL 150 mg 24 hr tablet 2021-0 4-20 00:00: 00 08-31 04:59 :00 No 150mg Take 150 mg by mouth. [facility] buPROPion XL 150 mg 24 hr tablet 2021-0 4-20 00:00: 00 08-31 04:59 :00 No 150mg Take 150 mg by mouth. [facility] buPROPion XL 150 mg 24 hr tablet 2021-0 4-20 00:00: 00 08-31 04:59 :00 No 150mg Take 150 mg by mouth. [facility] buPROPion XL 150 mg 24 hr tablet 2021-0 4-20 00:00: 00 08-31 04:59 :00 No 150mg Take 150 mg by mouth. [facility] buPROPion XL 150 mg 24 hr tablet 2021-0 4-20 00:00: 00 08-31 04:59 :00 No 150mg Take 150 mg by mouth. [facility] buPROPion XL 150 mg 24 hr tablet 2021-0 4-20 00:00: 00 02-27 00:00 :00 No [facility] buPROPion XL 150 mg 24 hr tablet 0 4-20 00:00: 00 02-27 00:00 :00 No 150mg Take 150 mg by mouth. [facility] buPROPion XL 150 mg 24 hr tablet 2021-0 4-20 00:00: 00 02-27 00:00 :00 No [facility] buPROPion XL 150 mg 24 hr tablet 0 4-20 00:00: 00 02-27 00:00 :00 No 150mg Take 150 mg by mouth. [facility] buPROPion XL 150 mg 24 hr tablet 0 4-20 00:00: 00 02-27 00:00 :00 No [facility] buPROPion XL 150 mg 24 hr tablet 0 4-20 00:00: 00 02-27 00:00 :00 No 150mg Take 150 mg by mouth. [facility] buPROPion XL 150 mg 24 hr tablet 0 4-20 00:00: 00 02-27 00:00 :00 No [facility] buPROPion XL 150 mg 24 hr tablet 0 4-20 00:00: 00 02-27 00:00 :00 No 150mg Take 150 mg by mouth. [facility] buPROPion XL 150 mg 24 hr tablet 2021-0 4-20 00:00: 00 02-27 00:00 :00 No [facility] buPROPion XL 150 mg 24 hr tablet 0 4-20 00:00: 00 02-27 00:00 :00 No 150mg Take 150 mg by mouth. [facility] proMETHazin e 25 mg tablet 0 4-05 00:00: 00 09-12 00:00 :00 No [id number] 25mg Take 1 tablet by mouth every 6 (six) hours as needed for Nausea and Vomiting (N/V). [facility] traMADoL 50 mg tablet 0 4-05 00:00: 00 09-12 00:00 :00 No [id number] 50mg Take 1 tablet by mouth every 6 (six) hours as needed (pain). Indication s: acute pain [facility] proMETHazin e 25 mg tablet 4-05 00:00: 00 09-12 00:00 :00 No [id number] 25mg Take 1 tablet by mouth every 6 (six) hours as needed for Nausea and Vomiting (N/V). [facility] traMADoL 50 mg tablet 05 00:00: 00 09-12 00:00 :00 No [id number] 50mg Take 1 tablet by mouth every 6 (six) hours as needed (pain). Indication s: acute pain [facility] proMETHazin e 25 mg tablet 4-05 00:00: 00 09-12 00:00 :00 No [id number] 25mg Take 1 tablet by mouth every 6 (six) hours as needed for Nausea and Vomiting (N/V). [facility] traMADoL 50 mg tablet 405 00:00: 00 09-12 00:00 :00 No [id number] 50mg Take 1 tablet by mouth every 6 (six) hours as needed (pain). Indication s: acute pain [facility] cyclobenzap rine 10 mg tablet -28 00:00: 00 08-22 04:59 :00 No [id number] 10mg Take 1 tablet by mouth 3 (three) times daily for 14 days. [facility] ibuprofen 800 mg tablet 3-28 00:00: 00 08-22 04:59 :00 No [id number] 800mg Take 1 tablet by mouth every 6 (six) hours as needed for Pain (scale 1-3) for up to 14 days. [facility] diclofenac 75 mg EC tablet 3 00:00: 00 09-12 00:00 :00 No [facility] orphenadrin e 100 mg SR tablet 08-01 00:00: 00 09-12 00:00 :00 No [facility] EC tablet 08-01 00:00: 09-12 00:00 :00 No [facility] orphenadrin e 100 mg SR tablet 08-01 00:00: 00 09-12 00:00 :00 No [facility] divalproex 125 mg EC tablet 3 00:00: 00 09-12 00:00 :00 No [id number] 125mg Take 1 tablet by mouth every 12 (twelve) hours. [facility] divalproex Sprinkles 125 mg SPRINKLE capsule 3- 00:00: 00 09-12 00:00 :00 No [facility] divalproex 125 mg EC tablet 3- 00:00: 00 09-12 00:00 :00 No [id number] 125mg Take 1 tablet by mouth every 12 (twelve) hours. [facility] divalproex Sprinkles 125 mg SPRINKLE capsule 3- 00:00: 09-12 00:00 :00 No [facility] divalproex 125 mg EC tablet 0 3-11 00:00: 00 09-12 00:00 :00 No [id number] 125mg Take 1 tablet by mouth every 12 (twelve) hours. [facility] ibuprofen 600 mg tablet 3-07 00:00: 00 08-01 04:59 :00 No [id number] 600mg Take 1 tablet by mouth every 6 (six) hours as needed for Temp > 38.5 C for up to 14 days. [facility] acetaminoph en-codeine 300-30 mg tablet 06-11 00:00: 00 09-12 00:00 :00 No TAKE 1 TABLET BY MOUTH EVERY 4 HOURS NEEDED FOR PAIN FOR 2 DAYS [facility] acetaminoph en-codeine 300-30 mg tablet 06-11 00:00: 00 09-12 00:00 :00 No TAKE 1 TABLET BY MOUTH EVERY 4 HOURS NEEDED FOR PAIN FOR 2 DAYS [facility] acetaminoph en-codeine 300-30 mg tablet 06-11 00:00: 00 09-12 00:00 :00 No TAKE 1 TABLET BY MOUTH EVERY 4 HOURS NEEDED FOR PAIN FOR 2 DAYS [facility] fluticasone propionate 110 mcg/actuati on inhaler 05-31 00:00: 00 09-28 00:00 :00 No [id number] 2{puff} Inhale 2 Puffs every 12 (twelve) hours. [facility] fluticasone propionate 110 mcg/actuati on inhaler 05-31 00:00: 00 09-28 00:00 :00 No [id number] 2{puff} Inhale 2 Puffs every 12 (twelve) hours. [facility] fluticasone propionate 110 mcg/actuati on inhaler 05-31 00:00: 00 09-28 00:00 :00 No [id number] 2{puff} Inhale 2 Puffs every 12 (twelve) hours. [facility] fluticasone propionate 110 mcg/actuati on inhaler 05-31 00:00: 00 09-28 00:00 :00 No [id number] 2{puff} Inhale 2 Puffs every 12 (twelve) hours. [facility] benzonatate (TESSALON PERLES) 100 mg capsule 05-25 00:00: 00 09-25 00:00 :00 No [id number] 100mg Take 1 capsule by mouth every 8 (eight) hours as needed for Cough. [facility] benzonatate (TESSALON PERLES) 100 mg capsule 05-25 00:00: 00 09-25 00:00 :00 No [id number] 100mg Take 1 capsule by mouth every 8 (eight) hours as needed for Cough. [facility] benzonatate (TESSALON PERLES) 100 mg capsule 0 05-25 00:00: 00 09-25 00:00 :00 No [id number] 100mg Take 1 capsule by mouth every 8 (eight) hours as needed for Cough. [facility] benzonatate (TESSALON PERLES) 100 mg capsule 05-25 00:00: 00 09-25 00:00 :00 No [id number] 100mg Take 1 capsule by mouth every 8 (eight) hours as needed for Cough. [facility] carvediloL 25 mg tablet 2020-05 00:00: 00 Yes 25mg Take 1 tablet by mouth 2 (two) times daily with meals. [facility] losartan 50 mg tablet 2020-05 00:00: 00 Yes 50mg Take 1 tablet by mouth 2 (two) times daily. [facility] carvediloL 25 mg tablet 2020-05 00:00: 00 Yes 25mg Take 1 tablet by mouth 2 (two) times daily with meals. [facility] losartan 50 mg tablet 2020-05 00:00: 00 Yes 50mg Take 1 tablet by mouth 2 (two) times daily. [facility] carvediloL 25 mg tablet 2020-05 00:00: 00 Yes 25mg Take 1 tablet by mouth 2 (two) times daily with meals. [facility] losartan 50 mg tablet 2020-05 00:00: 00 Yes 50mg Take 1 tablet by mouth 2 (two) times daily. [facility] carvediloL 25 mg tablet 2020-05 00:00: 00 Yes 25mg Take 1 tablet by mouth 2 (two) times daily with meals. [facility] losartan 50 mg tablet 2020-05 00:00: 00 Yes 50mg Take 1 tablet by mouth 2 (two) times daily. [facility] carvediloL 25 mg tablet 2020-05 00:00: 00 Yes 25mg Take 1 tablet by mouth 2 (two) times daily with meals. [facility] losartan 50 mg tablet 2020-05 00:00: 00 Yes 50mg Take 1 tablet by mouth 2 (two) times daily. [facility] carvediloL 25 mg tablet 2020-05 00:00: 00 Yes 25mg Take 1 tablet by mouth 2 (two) times daily with meals. [facility] losartan 50 mg tablet 2020-05 00:00: 00 Yes 50mg Take 1 tablet by mouth 2 (two) times daily. [facility] carvediloL 25 mg tablet 2020-05 00:00: 00 Yes 25mg Take 1 tablet by mouth 2 (two) times daily with meals. [facility] losartan 50 mg tablet 2020-05 00:00: 00 Yes 50mg Take 1 tablet by mouth 2 (two) times daily. [facility] carvediloL 25 mg tablet 2020-05 00:00: 00 Yes 25mg Take 1 tablet by mouth 2 (two) times daily with meals. [facility] losartan 50 mg tablet 2020-05 00:00: 00 Yes 50mg Take 1 tablet by mouth 2 (two) times daily. [facility] carvediloL 25 mg tablet 2020-05 00:00: 00 Yes 25mg Take 1 tablet by mouth 2 (two) times daily with meals. [facility] losartan 50 mg tablet 2020-05 00:00: 00 Yes 50mg Take 1 tablet by mouth 2 (two) times daily. [facility] carvediloL 25 mg tablet 2020-05 00:00: 00 Yes 25mg Take 1 tablet by mouth 2 (two) times daily with meals. [facility] losartan 50 mg tablet 2020-05 00:00: 00 Yes 50mg Take 1 tablet by mouth 2 (two) times daily. [facility] carvediloL 25 mg tablet 2020-05 2 00:00: 00 Yes 25mg Take 1 tablet by mouth 2 (two) times daily with meals. [facility] losartan 50 mg tablet 2020-05 00:00: 00 Yes 50mg Take 1 tablet by mouth 2 (two) times daily. [facility] carvediloL 25 mg tablet 2020-05 2 00:00: 00 02-27 00:00 :00 No 25mg Take 1 tablet by mouth 2 (two) times daily with meals. [facility] losartan 50 mg tablet 2020-05 00:00: 00 02-27 00:00 :00 No 50mg Take 1 tablet by mouth 2 (two) times daily. [facility] carvediloL 25 mg tablet 2020-05 00:00: 00 02-27 00:00 :00 No 25mg Take 1 tablet by mouth 2 (two) times daily with meals. [facility] losartan 50 mg tablet 2020-05 00:00: 00 02-27 00:00 :00 No 50mg Take 1 tablet by mouth 2 (two) times daily. [facility] carvediloL 25 mg tablet 2020-05 00:00: 00 02-27 00:00 :00 No 25mg Take 1 tablet by mouth 2 (two) times daily with meals. [facility] losartan 50 mg tablet 2020-05 00:00: 00 02-27 00:00 :00 No 50mg Take 1 tablet by mouth 2 (two) times daily. [facility] carvediloL 25 mg tablet 2020-05 00:00: 00 02-27 00:00 :00 No 25mg Take 1 tablet by mouth 2 (two) times daily with meals. [facility] losartan 50 mg tablet 2020-05 00:00: 00 02-27 00:00 :00 No 50mg Take 1 tablet by mouth 2 (two) times daily. [facility] carvediloL 25 mg tablet 2020-05 00:00: 00 02-27 00:00 :00 No 25mg Take 1 tablet by mouth 2 (two) times daily with meals. [facility] losartan 50 mg tablet 2020-05 2 00:00: 00 02-27 00:00 :00 No 50mg Take 1 tablet by mouth 2 (two) times daily. [facility] carvediloL 25 mg tablet 2020-05 2 00:00: 00 02-27 00:00 :00 No 25mg Take 1 tablet by mouth 2 (two) times daily with meals. [facility] losartan 50 mg tablet 2020-05 00:00: 00 02-27 00:00 :00 No 50mg Take 1 tablet by mouth 2 (two) times daily. [facility] carvediloL 25 mg tablet 2020-05 2 00:00: 00 02-27 00:00 :00 No 25mg Take 1 tablet by mouth 2 (two) times daily with meals. [facility] losartan 50 mg tablet 2020-05 2 00:00: 00 02-27 00:00 :00 No 50mg Take 1 tablet by mouth 2 (two) times daily. [facility] carvediloL 25 mg tablet 2020-05 2 00:00: 00 02-27 00:00 :00 No 25mg Take 1 tablet by mouth 2 (two) times daily with meals. [facility] losartan 50 mg tablet 2020-05 2 00:00: 00 02-27 00:00 :00 No 50mg Take 1 tablet by mouth 2 (two) times daily. [facility] carvediloL 25 mg tablet 2020-05 2 00:00: 00 02-27 00:00 :00 No 25mg Take 1 tablet by mouth 2 (two) times daily with meals. [facility] losartan 50 mg tablet 2020-05 2 00:00: 00 02-27 00:00 :00 No 50mg Take 1 tablet by mouth 2 (two) times daily. [facility] carvediloL 25 mg tablet 2020-05 00:00: 00 02-27 00:00 :00 No 25mg Take 1 tablet by mouth 2 (two) times daily with meals. [facility] losartan 50 mg tablet 2020-05 00:00: 00 02-27 00:00 :00 No 50mg Take 1 tablet by mouth 2 (two) times daily. [facility] proMETHazin e 25 mg tablet 2020-05 00:00: 00 09-12 00:00 :00 No [facility] proMETHazin e 25 mg tablet 2020-05 00:00: 00 09-12 00:00 :00 No [facility] proMETHazin e 25 mg tablet 2020-05 00:00: 00 09-12 00:00 :00 No [facility] methocarbam oL (ROBAXIN) 500 mg tablet 2020-05 00:00: 00 05-25 00:00 :00 No [id number] 500mg Take 1 tablet by mouth every 6 (six) hours as needed (MUSCLE SPASM). [facility] vitamin B-12 (VITAMIN B-12) 500 mcg tablet 2020-05 00:00: 00 09-12 00:00 :00 No [id number] 500ug Take 1 tablet by mouth daily. [facility] vitamin B-12 (VITAMIN B-12) 500 mcg tablet 2020-05 00:00: 00 09-12 00:00 :00 No [id number] 500ug Take 1 tablet by mouth daily. [facility] vitamin B-12 (VITAMIN B-12) 500 mcg tablet 2020-05 00:00: 00 09-12 00:00 :00 No [id number] 500ug Take 1 tablet by mouth daily. [facility] vitamin B-12 (VITAMIN B-12) 500 mcg tablet 2020-05 00:00: 00 09-12 00:00 :00 No [id number] 500ug Take 1 tablet by mouth daily. [facility] vitamin B-12 (VITAMIN B-12) 500 mcg tablet 2020-05 00:00: 00 09-12 00:00 :00 No [id number] 500ug Take 1 tablet by mouth daily. [facility] vitamin B-12 (VITAMIN B-12) 500 mcg tablet 2020-05 00:00: 00 09-12 00:00 :00 No [id number] 500ug Take 1 tablet by mouth daily. [facility] vitamin B-12 (VITAMIN B-12) 500 mcg tablet 2020-05 00:00: 00 09-12 00:00 :00 No [id number] 500ug Take 1 tablet by mouth daily. [facility] methylPREDN ISolone 4 mg tablets 2020-05 00:00: 00 05-25 00:00 :00 No [id number] Follow package directions [facility] methylPREDN ISolone 4 mg tablets 2020-05 00:00: 00 05-25 00:00 :00 No [id number] Follow package directions [facility] methylPREDN ISolone 4 mg tablets 2020-05 00:00: 00 05-25 00:00 :00 No [id number] Follow package directions [facility] fluticasone propion-chel meteroL 115-21 mcg/actuati on inhaler 02-09 00:00: 00 05-25 00:00 :00 No [id number] 2{puff} Inhale 2 Puffs 2 (two) times daily. Rinse mouth after each use. [facility] albuterol 2.5 mg /3 mL (0.083 %) nebulizer solution 02-09 00:00: 00 05-25 00:00 :00 No [id number] 2.5mg Inhale 3 mL every 6 (six) hours as needed for Wheezing or Shortness of Breath. [facility] fluticasone propion-chel meteroL 115-21 mcg/actuati on inhaler 02-09 00:00: 00 05-25 00:00 :00 No [id number] 2{puff} Inhale 2 Puffs 2 (two) times daily. Rinse mouth after each use. [facility] albuterol 2.5 mg /3 mL (0.083 %) nebulizer solution 02-09 00:00: 00 05-25 00:00 :00 No [id number] 2.5mg Inhale 3 mL every 6 (six) hours as needed for Wheezing or Shortness of Breath. [facility] flutic[facility] propion-chel meteroL 115-21 mcg/actuati on inhaler 02-09 00:00: 00 05-25 00:00 :00 No [id number] 2{puff} Inhale 2 Puffs 2 (two) times daily. Rinse mouth after each use. [facility] albuterol 2.5 mg /3 mL (0.083 %) nebulizer solution 02-09 00:00: 00 05-25 00:00 :00 No [id number] 2.5mg Inhale 3 mL every 6 (six) hours as needed for Wheezing or Shortness of Breath. [facility] fluticasone propion-chel meteroL 115-21 mcg/actuati on inhaler 02-09 00:00: 00 05-25 00:00 :00 No [id number] 2{puff} Inhale 2 Puffs 2 (two) times daily. Rinse mouth after each use. [facility] albuterol 2.5 mg /3 mL (0.083 %) nebulizer solution 02-09 00:00: 00 05-25 00:00 :00 No [id number] 2.5mg Inhale 3 mL every 6 (six) hours as needed for Wheezing or Shortness of Breath. [facility] methocarbam oL (ROBAXIN) 500 mg tablet 02-09 00:00: 00 05-02 00:00 :00 No [id number] 500mg Take 1 tablet by mouth every 6 (six) hours as needed (MUSCLE SPASM). [facility] methocarbam oL (ROBAXIN) 500 mg tablet 02-09 00:00: 00 05-02 00:00 :00 No [id number] 500mg Take 1 tablet by mouth every 6 (six) hours as needed (MUSCLE SPASM). [facility] bromphenira mine-pseudo ephedrine-D M (BROMFED DM) 2-30-10 mg/5 mL syrup 01-31 00:00: 00 02-09 00:00 :00 No [id number] 5mL Take 5 mL by mouth 4 (four) times daily as needed for Cough. [facility] methylPREDN ISolone (MEDROL, ANABELA,) 4 mg tablets 01-20 00:00: 00 02-09 00:00 :00 No [id number] Take by mouth SEE-INSTRU CTIONS. follow package directions [facility] methylPREDN ISolone (MEDROL, ANABELA,) 4 mg tablets 01-20 00:00: 00 02-09 00:00 :00 No [id number] Take by mouth SEE-INSTRU CTIONS. follow package directions [facility] methylPREDN ISolone (MEDROL, ANABELA,) 4 mg tablets 01-20 00:00: 00 02-09 00:00 :00 No [id number] Take by mouth SEE-INSTRU CTIONS. follow package directions [facility] albuterol 90 mcg/actuati on inhaler 01-12 00:00: 00 05-25 00:00 :00 No [id number] 2{puff} Inhale 2 Puffs every 4 (four) hours as needed for Wheezing or Shortness of Breath. [facility] albuterol 90 mcg/actuati on inhaler 01-12 00:00: 00 05-25 00:00 :00 No [id number] 2{puff} Inhale 2 Puffs every 4 (four) hours as needed for Wheezing or Shortness of Breath. [facility] albuterol 90 mcg/actuati on inhaler 01-12 00:00: 00 05-25 00:00 :00 No [id number] 2{puff} Inhale 2 Puffs every 4 (four) hours as needed for Wheezing or Shortness of Breath. [facility] albuterol 90 mcg/actuati on inhaler 01-12 00:00: 00 05-25 00:00 :00 No [id number] 2{puff} Inhale 2 Puffs every 4 (four) hours as needed for Wheezing or Shortness of Breath. [facility] albuterol 90 mcg/actuati on inhaler 01-12 00:00: 00 05-25 00:00 :00 No [id number] 2{puff} Inhale 2 Puffs every 4 (four) hours as needed for Wheezing or Shortness of Breath. [facility] albuterol 90 mcg/actuati on inhaler 01-12 00:00: 00 05-25 00:00 :00 No [id number] 2{puff} Inhale 2 Puffs every 4 (four) hours as needed for Wheezing or Shortness of Breath. [facility] albuterol 90 mcg/actuati on inhaler 01-12 00:00: 00 05-25 00:00 :00 No [id number] 2{puff} Inhale 2 Puffs every 4 (four) hours as needed for Wheezing or Shortness of Breath. [facility] benzonatate 100 mg capsule 01-12 00:00: 00 02-19 00:00 :00 No [id number] 100mg Take 1 capsule by mouth 3 (three) times daily as needed for Cough. [facility] benzonatate 100 mg capsule 01-12 00:00: 00 02-19 00:00 :00 No [id number] 100mg Take 1 capsule by mouth 3 (three) times daily as needed for Cough. [facility] benzonatate 100 mg capsule 9-02 00:00: 00 02-19 00:00 :00 No [id number] 100mg Take 1 capsule by mouth 3 (three) times daily as needed for Cough. [facility] losartan 50 mg tablet 8-13 00:00: 00 02-09 00:00 :00 No 50mg Take 1 tablet by mouth 2 (two) times daily. [facility] mg tablet 8- 00:00: 00 02-09 00:00 :00 No 50mg Take 1 tablet by mouth 2 (two) times daily. [facility] losartan 50 mg tablet 12-23 00:00: 00 02-09 00:00 :00 No 50mg Take 1 tablet by mouth 2 (two) times daily. [facility] topiramate 25 mg tablet 11-22 00:00: 00 12-26 00:00 :00 No 25mg Take 1 tablet by mouth 2 (two) times daily. [facility] OXcarbazepi ne 150 mg tablet 12 00:00: 00 02-09 00:00 :00 No [facility] OXcarbazepi ne 150 mg tablet 7-12 00:00: 00 02-09 00:00 :00 No [facility] OXcarbazepi ne 150 mg tablet 712 00:00: 00 02-09 00:00 :00 No [facility] OXcarbazepi ne 150 mg tablet 0 -12 00:00: 00 02-09 00:00 :00 No [facility] FLUoxetine 40 mg capsule 7-12 00:00: 00 12-26 00:00 :00 No [facility] traZODone 100 mg tablet 0 7-12 00:00: 00 12-26 00:00 :00 No [facility] dicyclomine 20 mg tablet 6-10 00:00: 00 12-26 00:00 :00 No [id number] 20mg Take 1 tablet by mouth 4 (four) times daily. [facility] proMETHazin e 25 mg tablet 6-10 00:00: 00 12-26 00:00 :00 No [id number] 25mg Take 1 tablet by mouth every 6 (six) hours as needed for Nausea and Vomiting (N/V). [facility] acetaminoph en-codeine 300-30 mg tablet 6-05 00:00: 00 12-26 00:00 :00 No TAKE 2 TABLETS BY MOUTH EVERY 6 HOURS NEEDED FOR PAIN [facility] oxybutynin (DITROPAN XL) 10 mg 24 hr tablet 5-30 00:00: 00 12-26 00:00 :00 No [id number] 10mg Take 1 tablet by mouth daily. [facility] ondansetron (ZOFRAN ODT) 4 mg disintegrat ing tablet 5-30 00:00: 00 12-26 00:00 :00 No [id number] 4mg Take 1 tablet by mouth every 8 (eight) hours as needed for Nausea and Vomiting (N/V). [facility] oxybutynin (DITROPAN XL) 10 mg 24 hr tablet 5-30 00:00: 00 12-26 00:00 :00 No [id number] 10mg Take 1 tablet by mouth daily. [facility] ondansetron (ZOFRAN ODT) 4 mg disintegrat ing tablet 5-30 00:00: 00 12-26 00:00 :00 No [id number] 4mg Take 1 tablet by mouth every 8 (eight) hours as needed for Nausea and Vomiting (N/V). [facility] oxybutynin (DITROPAN XL) 10 mg 24 hr tablet 5-30 00:00: 00 12-26 00:00 :00 No [id number] 10mg Take 1 tablet by mouth daily. [facility] ondansetron (ZOFRAN ODT) 4 mg disintegrat ing tablet 10-09 00:00: 00 12-26 00:00 :00 No [id number] 4mg Take 1 tablet by mouth every 8 (eight) hours as needed for Nausea and Vomiting (N/V). [facility] oxybutynin (DITROPAN XL) 10 mg 24 hr tablet 10-09 00:00: 00 12-26 00:00 :00 No [id number] 10mg Take 1 tablet by mouth daily. [facility] ondansetron (ZOFRAN ODT) 4 mg disintegrat ing tablet 10-09 00:00: 00 12-26 00:00 :00 No [id number] 4mg Take 1 tablet by mouth every 8 (eight) hours as needed for Nausea and Vomiting (N/V). [facility] ciprofloxac in HCl 500 mg tablet 10-09 00:00: 00 11-22 00:00 :00 No [id number] 500mg Take 1 tablet by mouth 2 (two) times daily. [facility] ciprofloxac in HCl 500 mg tablet 10-09 00:00: 00 11-22 00:00 :00 No [id number] 500mg Take 1 tablet by mouth 2 (two) times daily. [facility] ciprofloxac in HCl 500 mg tablet 10-09 00:00: 00 11-22 00:00 :00 No [id number] 500mg Take 1 tablet by mouth 2 (two) times daily. [facility] predniSONE 20 mg tablet 10-04 00:00: 00 11-22 00:00 :00 No [id number] 20mg Take 1 tablet by mouth daily. Days 1-2: 3 pills (60 mg). Days 3-4: 2 pills (40 mg). Days 5-6: 1 pill (20 mg). Days 7-8: 1/2 pill (10 mg). Then stop [facility] predniSONE 20 mg tablet 2021-0 5-25 00:00: 00 11-22 00:00 :00 No [id number] 20mg Take 1 tablet by mouth daily. Days 1-2: 3 pills (60 mg). Days 3-4: 2 pills (40 mg). Days 5-6: 1 pill (20 mg). Days 7-8: 1/2 pill (10 mg). Then stop [facility] predniSONE 20 mg tablet 2020-0 10-04 00:00: 00 11-22 00:00 :00 No [id number] 20mg Take 1 tablet by mouth daily. Days 1-2: 3 pills (60 mg). Days 3-4: 2 pills (40 mg). Days 5-6: 1 pill (20 mg). Days 7-8: 1/2 pill (10 mg). Then stop [facility] predniSONE 20 mg tablet 10-04 00:00: 00 11-22 00:00 :00 No [id number] 20mg Take 1 tablet by mouth daily. Days 1-2: 3 pills (60 mg). Days 3-4: 2 pills (40 mg). Days 5-6: 1 pill (20 mg). Days 7-8: 1/2 pill (10 mg). Then stop [facility] predniSONE 20 mg tablet 2020-10-04 00:00: 00 11-22 00:00 :00 No [id number] 20mg Take 1 tablet by mouth daily. Days 1-2: 3 pills (60 mg). Days 3-4: 2 pills (40 mg). Days 5-6: 1 pill (20 mg). Days 7-8: 1/2 pill (10 mg). Then stop [facility] predniSONE 20 mg tablet 2020-0 10-04 00:00: 00 11-22 00:00 :00 No [id number] 20mg Take 1 tablet by mouth daily. Days 1-2: 3 pills (60 mg). Days 3-4: 2 pills (40 mg). Days 5-6: 1 pill (20 mg). Days 7-8: 1/2 pill (10 mg). Then stop [facility] predniSONE 20 mg tablet 2020-10-04 00:00: 00 11-22 00:00 :00 No [id number] 20mg Take 1 tablet by mouth daily. Days 1-2: 3 pills (60 mg). Days 3-4: 2 pills (40 mg). Days 5-6: 1 pill (20 mg). Days 7-8: 1/2 pill (10 mg). Then stop [facility] predniSONE 20 mg tablet 10-04 00:00: 00 11-22 00:00 :00 No [id number] 20mg Take 1 tablet by mouth daily. Days 1-2: 3 pills (60 mg). Days 3-4: 2 pills (40 mg). Days 5-6: 1 pill (20 mg). Days 7-8: 1/2 pill (10 mg). Then stop [facility] predniSONE 20 mg tablet 10-04 00:00: 00 11-22 00:00 :00 No [id number] 20mg Take 1 tablet by mouth daily. Days 1-2: 3 pills (60 mg). Days 3-4: 2 pills (40 mg). Days 5-6: 1 pill (20 mg). Days 7-8: 1/2 pill (10 mg). Then stop [facility] predniSONE 20 mg tablet 10-04 00:00: 00 11-22 00:00 :00 No [id number] 20mg Take 1 tablet by mouth daily. Days 1-2: 3 pills (60 mg). Days 3-4: 2 pills (40 mg). Days 5-6: 1 pill (20 mg). Days 7-8: 1/2 pill (10 mg). Then stop [facility] mupirocin 2 % ointment 20 00:00: 00 12-26 00:00 :00 No [id number] Apply to both nostrils at bedtime [facility] mupirocin 2 % ointment 20 00:00: 00 12-26 00:00 :00 No [id number] Apply to both nostrils at bedtime [facility] mupirocin 2 % ointment 2021-0 5-20 00:00: 00 12-26 00:00 :00 No [id number] Apply to both nostrils at bedtime [facility] mupirocin 2 % ointment 20 00:00: 00 12-26 00:00 :00 No [id number] Apply to both nostrils at bedtime [facility] mupirocin 2 % ointment 09-29 00:00: 00 12-26 00:00 :00 No [id number] Apply to both nostrils at bedtime [facility] mupirocin 2 % ointment 09-29 00:00: 00 12-26 00:00 :00 No [id number] Apply to both nostrils at bedtime [facility] mupirocin 2 % ointment 09-29 00:00: 00 12-26 00:00 :00 No [id number] Apply to both nostrils at bedtime [facility] mupirocin 2 % ointment 09-29 00:00: 00 12-26 00:00 :00 No [id number] Apply to both nostrils at bedtime [facility] mupirocin 2 % ointment 09-29 00:00: 00 12-26 00:00 :00 No [id number] Apply to both nostrils at bedtime [facility] mupirocin 2 % ointment 20 00:00: 00 12-26 00:00 :00 No [id number] Apply to both nostrils at bedtime [facility] mupirocin 2 % ointment 20 00:00: 00 12-26 00:00 :00 No [id number] Apply to both nostrils at bedtime [facility] naproxen sodium (ANAPROX DS) 550 mg tablet 09-28 00:00: 00 12-26 00:00 :00 No [id number] 550mg Take 1 tablet by mouth 2 (two) times daily with meals. [facility] naproxen sodium (ANAPROX DS) 550 mg tablet 09-28 00:00: 00 12-26 00:00 :00 No [id number] 550mg Take 1 tablet by mouth 2 (two) times daily with meals. [facility] naproxen sodium (ANAPROX DS) 550 mg tablet 09-28 00:00: 00 12-26 00:00 :00 No [id number] 550mg Take 1 tablet by mouth 2 (two) times daily with meals. [facility] naproxen sodium (ANAPROX DS) 550 mg tablet 09-28 00:00: 00 12-26 00:00 :00 No [id number] 550mg Take 1 tablet by mouth 2 (two) times daily with meals. [facility] naproxen sodium (ANAPROX DS) 550 mg tablet 09-28 00:00: 00 12-26 00:00 :00 No [id number] 550mg Take 1 tablet by mouth 2 (two) times daily with meals. [facility] naproxen sodium (ANAPROX DS) 550 mg tablet 09-28 00:00: 00 12-26 00:00 :00 No [id number] 550mg Take 1 tablet by mouth 2 (two) times daily with meals. [facility] naproxen sodium (ANAPROX DS) 550 mg tablet 09-28 00:00: 00 12-26 00:00 :00 No [id number] 550mg Take 1 tablet by mouth 2 (two) times daily with meals. [facility] naproxen sodium (ANAPROX DS) 550 mg tablet 09-28 00:00: 00 12-26 00:00 :00 No [id number] 550mg Take 1 tablet by mouth 2 (two) times daily with meals. [facility] naproxen sodium (ANAPROX DS) 550 mg tablet 09-28 00:00: 00 12-26 00:00 :00 No [id number] 550mg Take 1 tablet by mouth 2 (two) times daily with meals. [facility] naproxen sodium (ANAPROX DS) 550 mg tablet 09-28 00:00: 00 12-26 00:00 :00 No [id number] 550mg Take 1 tablet by mouth 2 (two) times daily with meals. [facility] naproxen sodium (ANAPROX DS) 550 mg tablet 09-28 00:00: 00 12-26 00:00 :00 No [id number] 550mg Take 1 tablet by mouth 2 (two) times daily with meals. [facility] losartan 25 mg tablet 09-16 00:00: 00 12-22 00:00 :00 No 25mg Take 1 tablet by mouth 2 (two) times daily. [facility] nadoloL 20 mg tablet 09-16 00:00: 00 12-22 00:00 :00 No [id number] Please take Nadalol 40 mg QAM [facility] losartan 25 mg tablet 09-16 00:00: 00 12-22 00:00 :00 No 25mg Take 1 tablet by mouth 2 (two) times daily. [facility] nadoloL 20 mg tablet 09-16 00:00: 00 12-22 00:00 :00 No [id number] Please take Nadalol 40 mg QAM [facility] losartan 25 mg tablet 09-16 00:00: 00 12-22 00:00 :00 No 25mg Take 1 tablet by mouth 2 (two) times daily. [facility] nadoloL 20 mg tablet 09-16 00:00: 00 12-22 00:00 :00 No [id number] Please take Nadalol 40 mg QAM [facility] losartan 25 mg tablet 09-16 00:00: 00 12-22 00:00 :00 No 25mg Take 1 tablet by mouth 2 (two) times daily. [facility] nadoloL 20 mg tablet 09-16 00:00: 00 12-22 00:00 :00 No [id number] Please take Nadalol 40 mg QAM [facility] losartan 25 mg tablet 09-16 00:00: 00 12-22 00:00 :00 No 25mg Take 1 tablet by mouth 2 (two) times daily. [facility] nadoloL 20 mg tablet 09-16 00:00: 00 12-22 00:00 :00 No [id number] Please take Nadalol 40 mg QAM [facility] losartan 25 mg tablet 09-16 00:00: 00 12-22 00:00 :00 No 25mg Take 1 tablet by mouth 2 (two) times daily. [facility] nadoloL 20 mg tablet 09-16 00:00: 00 12-22 00:00 :00 No [id number] Please take Nadalol 40 mg QAM [facility] losartan 25 mg tablet 09-16 00:00: 00 12-22 00:00 :00 No 25mg Take 1 tablet by mouth 2 (two) times daily. [facility] nadoloL 20 mg tablet 09-16 00:00: 00 12-22 00:00 :00 No [id number] Please take Nadalol 40 mg QAM [facility] losartan 25 mg tablet 09-16 00:00: 00 12-22 00:00 :00 No 25mg Take 1 tablet by mouth 2 (two) times daily. [facility] nadoloL 20 mg tablet 09-16 00:00: 00 12-22 00:00 :00 No [id number] Please take Nadalol 40 mg QAM [facility] losartan 25 mg tablet 09-16 00:00: 00 12-22 00:00 :00 No 25mg Take 1 tablet by mouth 2 (two) times daily. [facility] nadoloL 20 mg tablet 09-16 00:00: 12-22 00:00 :00 No [id number] Please take Nadalol 40 mg QAM [facility] losartan 25 mg tablet 09-16 00:00: 00 12-22 00:00 :00 No 25mg Take 1 tablet by mouth 2 (two) times daily. [facility] nadoloL 20 mg tablet 09-16 00:00: 00 12-22 00:00 :00 No [id number] Please take Nadalol 40 mg QAM [facility] losartan 25 mg tablet 09-16 00:00: 00 12-22 00:00 :00 No 25mg Take 1 tablet by mouth 2 (two) times daily. [facility] nadoloL 20 mg tablet 09-16 00:00: 00 12-22 00:00 :00 No [id number] Please take Nadalol 40 mg QAM [facility] LOESTRIN FE (LOESTRIN FE 1/20) 1 mg-20 mcg (21)/75 mg (7) tablet 09-06 00:00: 00 02-09 00:00 :00 No [id number] 1{tbl} Take 1 tablet by mouth daily. [facility] LOESTRIN FE (LOESTRIN FE 1/20) 1 mg-20 mcg (21)/75 mg (7) tablet 09-06 00:00: 00 02-09 00:00 :00 No [id number] 1{tbl} Take 1 tablet by mouth daily. [facility] LOESTRIN FE (LOESTRIN FE 1/20) 1 mg-20 mcg (21)/75 mg (7) tablet 09-06 00:00: 00 02-09 00:00 :00 No [id number] 1{tbl} Take 1 tablet by mouth daily. [facility] LOESTRIN FE (LOESTRIN FE 1/20) 1 mg-20 mcg (21)/75 mg (7) tablet 09-06 00:00: 00 02-09 00:00 :00 No [id number] 1{tbl} Take 1 tablet by mouth daily. [facility] LOESTRIN FE (LOESTRIN FE 1/20) 1 mg-20 mcg (21)/75 mg (7) tablet 09-06 00:00: 00 02-09 00:00 :00 No [id number] 1{tbl} Take 1 tablet by mouth daily. [facility] LOESTRIN FE (LOESTRIN FE 1/20) 1 mg-20 mcg (21)/75 mg (7) tablet 09-06 00:00: 00 02-09 00:00 :00 No [id number] 1{tbl} Take 1 tablet by mouth daily. [facility] LOESTRIN FE (LOESTRIN FE 1/20) 1 mg-20 mcg (21)/75 mg (7) tablet 09-06 00:00: 00 02-09 00:00 :00 No [id number] 1{tbl} Take 1 tablet by mouth daily. [facility] LOESTRIN FE (LOESTRIN FE 1/20) 1 mg-20 mcg (21)/75 mg (7) tablet 09-06 00:00: 00 02-09 00:00 :00 No [id number] 1{tbl} Take 1 tablet by mouth daily. [facility] LOESTRIN FE (LOESTRIN FE 1/20) 1 mg-20 mcg (21)/75 mg (7) tablet 09-06 00:00: 00 02-09 00:00 :00 No [id number] 1{tbl} Take 1 tablet by mouth daily. [facility] LOESTRIN FE (LOESTRIN FE 1/20) 1 mg-20 mcg (21)/75 mg (7) tablet 09-06 00:00: 00 02-09 00:00 :00 No [id number] 1{tbl} Take 1 tablet by mouth daily. [facility] LOESTRIN FE (LOESTRIN FE 1/20) 1 mg-20 mcg (21)/75 mg (7) tablet 09-06 00:00: 00 02-09 00:00 :00 No [id number] 1{tbl} Take 1 tablet by mouth daily. [facility] LOESTRIN FE (LOESTRIN FE 1/20) 1 mg-20 mcg (21)/75 mg (7) tablet 09-06 00:00: 00 02-09 00:00 :00 No [id number] 1{tbl} Take 1 tablet by mouth daily. [facility] LOESTRIN FE (LOESTRIN FE 1/20) 1 mg-20 mcg (21)/75 mg (7) tablet 09-06 00:00: 00 02-09 00:00 :00 No [id number] 1{tbl} Take 1 tablet by mouth daily. [facility] LOESTRIN FE (LOESTRIN FE 1/20) 1 mg-20 mcg (21)/75 mg (7) tablet 09-06 00:00: 00 02-09 00:00 :00 No [id number] 1{tbl} Take 1 tablet by mouth daily. [facility] FLUoxetine 20 mg capsule 09-06 00:00: 00 11-22 00:00 :00 No [id number] 20mg Take 1 capsule by mouth daily. [facility] traZODone 50 mg tablet 09-06 00:00: 00 11-22 00:00 :00 No [id number] 50mg Take 1 tablet by mouth at bedtime. [facility] FLUoxetine 20 mg capsule 09-06 00:00: 00 11-22 00:00 :00 No [id number] 20mg Take 1 capsule by mouth daily. [facility] traZODone 50 mg tablet 09-06 00:00: 00 11-22 00:00 :00 No [id number] 50mg Take 1 tablet by mouth at bedtime. [facility] FLUoxetine 20 mg capsule 09-06 00:00: 00 11-22 00:00 :00 No [id number] 20mg Take 1 capsule by mouth daily. [facility] traZODone 50 mg tablet 2020-0 4-27 00:00: 00 11-22 00:00 :00 No [id number] 50mg Take 1 tablet by mouth at bedtime. [facility] FLUoxetine 20 mg capsule 2020-0 4-27 00:00: 00 11-22 00:00 :00 No [id number] 20mg Take 1 capsule by mouth daily. [facility] traZODone 50 mg tablet 2020-0 4-27 00:00: 00 11-22 00:00 :00 No [id number] 50mg Take 1 tablet by mouth at bedtime. [facility] FLUoxetine 20 mg capsule 2020-0 4-27 00:00: 00 11-22 00:00 :00 No [id number] 20mg Take 1 capsule by mouth daily. [facility] traZODone 50 mg tablet 2020-0 27 00:00: 00 11-22 00:00 :00 No [id number] 50mg Take 1 tablet by mouth at bedtime. [facility] FLUoxetine 20 mg capsule 2020-0 27 00:00: 00 11-22 00:00 :00 No [id number] 20mg Take 1 capsule by mouth daily. [facility] traZODone 50 mg tablet 2020-0 27 00:00: 00 11-22 00:00 :00 No [id number] 50mg Take 1 tablet by mouth at bedtime. [facility] FLUoxetine 20 mg capsule 2020-0 427 00:00: 00 11-22 00:00 :00 No [id number] 20mg Take 1 capsule by mouth daily. [facility] traZODone 50 mg tablet 2020-0 4-27 00:00: 00 11-22 00:00 :00 No [id number] 50mg Take 1 tablet by mouth at bedtime. [facility] FLUoxetine 20 mg capsule 2020-0 427 00:00: 00 11-22 00:00 :00 No [id number] 20mg Take 1 capsule by mouth daily. [facility] traZODone 50 mg tablet 09-06 00:00: 00 11-22 00:00 :00 No [id number] 50mg Take 1 tablet by mouth at bedtime. [facility] FLUoxetine 20 mg capsule 09-06 00:00: 00 11-22 00:00 :00 No [id number] 20mg Take 1 capsule by mouth daily. [facility] traZODone 50 mg tablet 09-06 00:00: 00 11-22 00:00 :00 No [id number] 50mg Take 1 tablet by mouth at bedtime. [facility] FLUoxetine 20 mg capsule 09-06 00:00: 00 11-22 00:00 :00 No [id number] 20mg Take 1 capsule by mouth daily. [facility] traZODone 50 mg tablet 09-06 00:00: 00 11-22 00:00 :00 No [id number] 50mg Take 1 tablet by mouth at bedtime. [facility] nadoloL 20 mg tablet 08-31 00:00: 00 09-16 00:00 :00 No [id number] Please take Nadalol 40 mg QAM and 20 mg QPM [facility] methocarbam oL (ROBAXIN) 500 mg tablet 08-18 00:00: 00 09-30 00:00 :00 No [id number] 500mg Take 1 tablet by mouth every 6 (six) hours as needed (MUSCLE SPASM). [facility] traMADoL (ULTRAM) 50 mg tablet 08-18 00:00: 00 09-30 00:00 :00 No [id number] 50mg Take 1 tablet by mouth every 6 (six) hours as needed for Pain (scale 7-10). Indication s: acute pain [facility] ibuprofen 800 mg tablet 404 00:00: 00 11-22 00:00 :00 No TAKE 1 TABLET BY MOUTH EVERY 12 HOURS NEEDED FOR PAIN [facility] ibuprofen 800 mg tablet 2020-0 4-04 00:00: 00 11-22 00:00 :00 No TAKE 1 TABLET BY MOUTH EVERY 12 HOURS NEEDED FOR PAIN [facility] ibuprofen 800 mg tablet 2020-0 4-04 00:00: 00 11-22 00:00 :00 No TAKE 1 TABLET BY MOUTH EVERY 12 HOURS NEEDED FOR PAIN [facility] ibuprofen 800 mg tablet 2020-0 4-04 00:00: 00 11-22 00:00 :00 No TAKE 1 TABLET BY MOUTH EVERY 12 HOURS NEEDED FOR PAIN [facility] ibuprofen 800 mg tablet 2020-0 4-04 00:00: 00 11-22 00:00 :00 No TAKE 1 TABLET BY MOUTH EVERY 12 HOURS NEEDED FOR PAIN [facility] ibuprofen 800 mg tablet 2020-0 4-04 00:00: 00 11-22 00:00 :00 No TAKE 1 TABLET BY MOUTH EVERY 12 HOURS NEEDED FOR PAIN [facility] ibuprofen 800 mg tablet 0 4-04 00:00: 00 11-22 00:00 :00 No TAKE 1 TABLET BY MOUTH EVERY 12 HOURS NEEDED FOR PAIN [facility] ibuprofen 800 mg tablet 2020-0 4-04 00:00: 00 11-22 00:00 :00 No TAKE 1 TABLET BY MOUTH EVERY 12 HOURS NEEDED FOR PAIN [facility] ibuprofen 800 mg tablet 2020-0 4-04 00:00: 00 11-22 00:00 :00 No TAKE 1 TABLET BY MOUTH EVERY 12 HOURS NEEDED FOR PAIN [facility] ibuprofen 800 mg tablet 2020-0 4-04 00:00: 00 11-22 00:00 :00 No TAKE 1 TABLET BY MOUTH EVERY 12 HOURS NEEDED FOR PAIN [facility] ondansetron (ZOFRAN ODT) 4 mg disintegrat ing tablet 3-22 00:00: 00 09-30 00:00 :00 No [id number] 4mg Take 1 tablet by mouth every 8 (eight) hours as needed for Nausea and Vomiting (N/V). [facility] ketorolac 10 mg tablet 3-22 00:00: 00 09-30 00:00 :00 No [id number] 10mg Take 1 tablet by mouth every 6 (six) hours as needed for Pain (scale 4-6). [facility] ciprofloxac in HCl 250 mg tablet 322 00:00: 00 09-30 00:00 :00 No [id number] 250mg Take 1 tablet by mouth 2 (two) times daily. [facility] lidocaine 5 % (700 mg/patch) patch 3 00:00: 00 09-30 00:00 :00 No [id number] 1{patch } Apply 1 Patch to area(s) every 24 (twenty-fo ur) hours as needed for Localized pain. [facility] topiramate 25 mg tablet 1-05 00:00: 00 11-22 00:00 :00 No 25mg Take 1 tablet by mouth 2 (two) times daily. [facility] topiramate 25 mg tablet 1-05 00:00: 00 11-22 00:00 :00 No 25mg Take 1 tablet by mouth 2 (two) times daily. [facility] topiramate 25 mg tablet 0 1-05 00:00: 00 11-22 00:00 :00 No 25mg Take 1 tablet by mouth 2 (two) times daily. [facility] topiramate 25 mg tablet 2020-0 1-05 00:00: 00 11-22 00:00 :00 No 25mg Take 1 tablet by mouth 2 (two) times daily. [facility] topiramate 25 mg tablet 2020-0 1-05 00:00: 00 11-22 00:00 :00 No 25mg Take 1 tablet by mouth 2 (two) times daily. [facility] topiramate 25 mg tablet 2020-0 1-05 00:00: 00 11-22 00:00 :00 No 25mg Take 1 tablet by mouth 2 (two) times daily. [facility] topiramate 25 mg tablet 2020-0 1-05 00:00: 00 11-22 00:00 :00 No 25mg Take 1 tablet by mouth 2 (two) times daily. [facility] 2020-0 1-05 00:00: 00 11-22 00:00 :00 No 25mg Take 1 tablet by mouth 2 (two) times daily. [facility] topiramate 25 mg tablet 2020-0 1-05 00:00: 00 11-22 00:00 :00 No 25mg Take 1 tablet by mouth 2 (two) times daily. [facility] topiramate 25 mg tablet 2020-0 1-05 00:00: 00 11-22 00:00 :00 No 25mg Take 1 tablet by mouth 2 (two) times daily. [facility] topiramate 25 mg tablet 2020-0 1-05 00:00: 00 11-22 00:00 :00 No 25mg Take 1 tablet by mouth 2 (two) times daily. [facility] topiramate 25 mg tablet 2020-0 1-05 00:00: 00 11-22 00:00 :00 No 25mg Take 1 tablet by mouth 2 (two) times daily. [facility] topiramate 25 mg tablet 2020-0 1-05 00:00: 00 11-22 00:00 :00 No 25mg Take 1 tablet by mouth 2 (two) times daily. [facility] metoprolol succinate XL 25 mg 24 hr tablet 2019-05 00:00: 00 06-15 00:00 :00 No [id number] 12.5mg Take 0.5 tablets by mouth 2 (two) times daily for 90 days. [facility] metoprolol succinate XL 25 mg 24 hr tablet 2019-05 00:00: 00 06-15 00:00 :00 No [id number] 12.5mg Take 0.5 tablets by mouth 2 (two) times daily for 90 days. [facility] metoprolol succinate XL 25 mg 24 hr tablet 2019-05 2-21 00:00: 06-15 00:00 :00 No [id number] 12.5mg Take 0.5 tablets by mouth 2 (two) times daily for 90 days. [facility] FLUoxetine 20 mg capsule 2019-05 00:00: 00 09-06 00:00 :00 No 20mg Take 20 mg by mouth daily. [facility] FLUoxetine 20 mg capsule 2019-05 00:00: 09-06 00:00 :00 No 20mg Take 20 mg by mouth daily. [facility] norgestimat e-ethinyl estradiol 0.25-35 mg-mcg per tablet 11-17 00:00: 04-15 00:00 :00 No [id number] 1{tbl} Take 1 tablet by mouth daily. [facility] buPROPion XL (WELLBUTRIN XL) 150 mg 24 hr tablet 08-12 00:00: 01-04 00:00 :00 No [id number] 150mg Take 1 tablet by mouth daily. [facility] acetaminoph en 325 mg tablet 07-22 00:00: 01-04 00:00 :00 No [id number] 650mg Take 2 tablets by mouth every 6 (six) hours as needed for Pain (scale 1-3) or Pain (scale 4-6). [facility] vitamin w/FA tablet 07-22 00:00: 01-04 00:00 :00 No [id number] 1{tbl} Take 1 tablet by mouth daily. [facility] docusate calcium 240 mg capsule 07-22 00:00: 01-04 00:00 :00 No [id number] 240mg Take 1 capsule by mouth once daily as needed for Constipati on. [facility] ferrous sulfate 325 mg (65 mg iron) tablet 12 00:00: 01-04 00:00 :00 No [id number] 325mg Take 1 tablet by mouth 2 (two) times daily. [facility] ibuprofen 600 mg tablet 12 00:00: 00 01-04 00:00 :00 No [id number] 600mg Take 1 tablet by mouth every 6 (six) hours as needed (Pain). Take with food or milk. [facility] ALBUTEROL 90 mcg/actuati on inhaler 1-14 00:00: 00 05-01 00:00 :00 No [id number] 103 INHALE 2 PUFFS BY MOUTH EVERY 6 HOURS NEEDED FOR WHEEZING FOR SHORTNESS OF BREATH [facility] buPROPion SR (WELLBUTRIN SR) 150 mg SR tablet 05-21 00:00: 01-04 00:00 :00 No [id number] 150mg Take 1 tablet by mouth 2 (two) times daily. [facility] busPIRone 10 mg tablet 05-21 00:00: 00 01-04 00:00 :00 No [id number] 109 10mg Take 1 tablet by mouth 3 (three) times daily. [facility] Immunizations Ordered Immunization Name Filled Immunization Name Date Status Comments Source Influenza Virus Vaccine Quad IM, Preserv and ABX Free 6 MO-64 YRS 2022-02-27 00:00:00 Completed [facility] Influenza Virus Vaccine Quad IM, Preserv and ABX Free 6 MO-64 YRS 2022-02-27 00:00:00 Completed [facility] Influenza Virus Vaccine Quad IM, Preserv and ABX Free 6 MO-64 YRS 2022-02-27 00:00:00 Completed [facility] Influenza Virus Vaccine Quad IM, Preserv and ABX Free 6 MO-64 YRS 2022-02-27 00:00:00 Completed [facility] Influenza Virus Vaccine Quad IM, Preserv and ABX Free 6 MO-64 YRS 2022-02-27 00:00:00 Completed [facility] Influenza Virus Vaccine Quad IM, Preserv and ABX Free 6 MO-64 YRS 2022-02-27 00:00:00 Completed [facility] Influenza Virus Vaccine Quad IM, Preserv and ABX Free 6 MO-64 YRS 2022-02-27 00:00:00 Completed [facility] Influenza Virus Vaccine Quad IM, Preserv and ABX Free 6 MO-64 YRS 2022-02-27 00:00:00 Completed [facility] Influenza Virus Vaccine Quad IM, Preserv and ABX Free 6 MO-64 YRS 2022-02-27 00:00:00 Completed [facility] Influenza Virus Vaccine Quad IM, Preserv and ABX Free 6 MO-64 YRS 2022-02-27 00:00:00 Completed [facility] Influenza Virus Vaccine Quad IM, Preserv and ABX Free 6 MO-64 YRS 2022-02-27 00:00:00 Completed [facility] Influenza Virus Vaccine Quad IM, Preserv and ABX Free 6 MO-64 YRS 2022-02-27 00:00:00 Completed [facility] Influenza Virus Vaccine Quad IM, Preserv and ABX Free 6 MO-64 YRS 2022-02-27 00:00:00 Completed [facility] Influenza Virus Vaccine Quad IM, Preserv and ABX Free 6 MO-64 YRS 2022-02-27 00:00:00 Completed [facility] Influenza Virus Vaccine Quad IM, Preserv and ABX Free 6 MO-64 YRS 2022-02-27 00:00:00 Completed [facility] Influenza Virus Vaccine Quad IM, Preserv and ABX Free 6 MO-64 YRS 2022-02-27 00:00:00 Completed [facility] Influenza Virus Vaccine Quad IM, Preserv and ABX Free 6 MO-64 YRS 2022-02-27 00:00:00 Completed [facility] Influenza Virus Vaccine Quad IM, Preserv and ABX Free 6 MO-64 YRS 2022-02-27 00:00:00 Completed [facility] Influenza Virus Vaccine Quad IM, Preserv and ABX Free 6 MO-64 YRS 2022-02-27 00:00:00 Completed [facility] Influenza Virus Vaccine Quad IM, Preserv and ABX Free 6 MO-64 YRS 2022-02-27 00:00:00 Completed [facility] Influenza Virus Vaccine Quad IM, Preserv and ABX Free 6 MO-64 YRS 2022-02-27 00:00:00 Completed [facility] Influenza Virus Vaccine Quad IM, Preserv and ABX Free 6 MO-64 YRS 2022-02-27 00:00:00 Completed [facility] Influenza Virus Vaccine Quad IM, Preserv and ABX Free 6 MO-64 YRS 2022-02-27 00:00:00 Completed [facility] Influenza Virus Vaccine Quad IM, Preserv and ABX Free 6 MO-64 YRS 2022-02-27 00:00:00 Completed [facility] Influenza Virus Vaccine Quad IM, Preserv and ABX Free 6 MO-64 YRS 2022-02-27 00:00:00 Completed [facility] Influenza Virus Vaccine Quad IM, Preserv and ABX Free 6 MO-64 YRS 2022-02-27 00:00:00 Completed [facility] Influenza Virus Vaccine Quad IM, Preserv and ABX Free 6 MO-64 YRS 2022-02-27 00:00:00 Completed [facility] Influenza Virus Vaccine Quad IM, Preserv and ABX Free 6 MO-64 YRS 2022-02-27 00:00:00 Completed [facility] Influenza Virus Vaccine Quad IM, Preserv and ABX Free 6 MO-64 YRS 2022-02-27 00:00:00 Completed [facility] Influenza Virus Vaccine Quad IM, Preserv and ABX Free 6 MO-64 YRS 2022-02-27 00:00:00 Completed [facility] Influenza Virus Vaccine Quad IM, Preserv and ABX Free 6 MO-64 YRS 2022-02-27 00:00:00 Completed [facility] Influenza Virus Vaccine Quad IM, Preserv and ABX Free 6 MO-64 YRS 2022-02-27 00:00:00 Completed [facility] Influenza Virus Vaccine Quad IM, Preserv and ABX Free 6 MO-64 YRS 2022-02-27 00:00:00 Completed [facility] Influenza Virus Vaccine Quad IM, Preserv and ABX Free 6 MO-64 YRS 2022-02-27 00:00:00 Completed [facility] Influenza Virus Vaccine Quad IM, Preserv and ABX Free 6 MO-64 YRS 2022-02-27 00:00:00 Completed [facility] Influenza Virus Vaccine Quad IM, Preserv and ABX Free 6 MO-64 YRS 2022-02-27 00:00:00 Completed [facility] Influenza Virus Vaccine Quad IM, Preserv and ABX Free 6 MO-64 YRS 2022-02-27 00:00:00 Completed [facility] Influenza Virus Vaccine Quad IM, Preserv and ABX Free 6 MO-64 YRS 2022-02-27 00:00:00 Completed [facility] Influenza Virus Vaccine Quad IM, Preserv and ABX Free 6 MO-64 YRS 2022-02-27 00:00:00 Completed [facility] Influenza Virus Vaccine Quad IM, Preserv and ABX Free 6 MO-64 YRS 2022-02-27 00:00:00 Completed [facility] Influenza Virus Vaccine Quad IM, Preserv and ABX Free 6 MO-64 YRS 2022-02-27 00:00:00 Completed [facility] Influenza Virus Vaccine Quad IM, Preserv and ABX Free 6 MO-64 YRS 2022-02-27 00:00:00 Completed [facility] Influenza Virus Vaccine Quad IM, Preserv and ABX Free 6 MO-64 YRS 2022-02-27 00:00:00 Completed [facility] Influenza Virus Vaccine Quad IM, Preserv and ABX Free 6 MO-64 YRS 2022-02-27 00:00:00 Completed [facility] Influenza Virus Vaccine Quad IM, Preserv and ABX Free 6 MO-64 YRS 2022-02-27 00:00:00 Completed [facility] Influenza Virus Vaccine Quad IM, Preserv and ABX Free 6 MO-64 YRS 2022-02-27 00:00:00 Completed [facility] Influenza Virus Vaccine Quad IM, Preserv and ABX Free 6 MO-64 YRS 2022-02-27 00:00:00 Completed [facility] Influenza Virus Vaccine Quad IM, Preserv and ABX Free 6 MO-64 YRS 2022-02-27 00:00:00 Completed [facility] Influenza Virus Vaccine Quad IM, Preserv and ABX Free 6 MO-64 YRS 2022-02-27 00:00:00 Completed [facility] Influenza Virus Vaccine Quad IM, Preserv and ABX Free 6 MO-64 YRS (FLUCELVAX) 2022-02-27 00:00:00 Completed [facility] Influenza Virus Vaccine Quad IM, Preserv and ABX Free 6 MO-64 YRS (FLUCELVAX) 2022-02-27 00:00:00 Completed [facility] Influenza Virus Vaccine Quad IM, Preserv and ABX Free 6 MO-64 YRS (FLUCELVAX) 2022-02-27 00:00:00 Completed [facility] Influenza Virus Vaccine Quad .5 mL IM 6+ MO 2022-02-21 00:00:00 Completed [facility] Influenza Virus Vaccine Quad .5 mL IM 6+ MO 2022-02-21 00:00:00 Completed [facility] Influenza Virus Vaccine Quad .5 mL IM 6+ MO 2022-02-21 00:00:00 Completed [facility] Influenza Virus Vaccine Quad .5 mL IM 6+ MO 2022-02-21 00:00:00 Completed [facility] Influenza Virus Vaccine Quad .5 mL IM 6+ MO 2022-02-21 00:00:00 Completed [facility] Influenza Virus Vaccine Quad .5 mL IM 6+ MO 2022-02-21 00:00:00 Completed [facility] Influenza Virus Vaccine Quad .5 mL IM 6+ MO 2022-02-21 00:00:00 Completed [facility] Influenza Virus Vaccine Quad .5 mL IM 6+ MO 2022-02-21 00:00:00 Completed [facility] Influenza Virus Vaccine Quad .5 mL IM 6+ MO 2022-02-21 00:00:00 Completed [facility] Influenza Virus Vaccine Quad .5 mL IM 6+ MO 2022-02-21 00:00:00 Completed [facility] Influenza Virus Vaccine Quad .5 mL IM 6+ MO 2022-02-21 00:00:00 Completed [facility] Influenza Virus Vaccine Quad .5 mL IM 6+ MO 2022-02-21 00:00:00 Completed [facility] Influenza Virus Vaccine Quad .5 mL IM 6+ MO 2022-02-21 00:00:00 Completed [facility] Influenza Virus Vaccine Quad .5 mL IM 6+ MO (FLUZONE/FLULAVAL/F LUARIX) 2022-02-21 00:00:00 Completed [facility] Influenza Virus Vaccine Quad .5 mL IM 6+ MO (FLUZONE/FLULAVAL/F LUARIX) 2022-02-21 00:00:00 Completed [facility] Influenza Virus Vaccine Quad .5 mL IM 6+ MO (FLUZONE/FLULAVAL/F LUARIX) 2022-02-21 00:00:00 Completed [facility] Influenza Virus Vaccine 2021-06-11 00:00:00 Completed [facility] Influenza Virus Vaccine 2021-06-11 00:00:00 Completed [facility] Influenza Virus Vaccine 2021-06-11 00:00:00 Completed [facility] Influenza Virus Vaccine 2021-06-11 00:00:00 Completed [facility] Influenza Virus Vaccine 2021-06-11 00:00:00 Completed [facility] Influenza Virus Vaccine 2021-06-11 00:00:00 Completed [facility] Influenza Virus Vaccine 2021-06-11 00:00:00 Completed [facility] Influenza Virus Vaccine 2021-06-11 00:00:00 Completed [facility] Influenza Virus Vaccine 2021-06-11 00:00:00 Completed [facility] Influenza Virus Vaccine 2021-06-11 00:00:00 Com[facility] [facility] 2021-06-11 00:00:00 Completed [facility] Influenza Virus Vaccine 2021-06-11 00:00:00 Completed [facility] Influenza Virus Vaccine 2021-06-11 00:00:00 Completed [facility] Influenza Virus Vaccine 2021-06-11 00:00:00 Completed [facility] Influenza Virus Vaccine 2021-06-11 00:00:00 Completed [facility] Influenza Virus Vaccine 2021-06-11 00:00:00 Completed [facility] Influenza Virus Vaccine 2021-06-11 00:00:00 Completed [facility] Influenza Virus Vaccine 2021-06-11 00:00:00 Completed [facility] Influenza Virus Vaccine 2021-06-11 00:00:00 Completed [facility] Influenza Virus Vaccine 2021-06-11 00:00:00 Completed [facility] Influenza Virus Vaccine 2021-06-11 00:00:00 Completed [facility] Influenza Virus Vaccine 2021-06-11 00:00:00 Completed [facility] Influenza Virus Vaccine 2021-06-11 00:00:00 Completed [facility] Influenza Virus Vaccine 2021-06-11 00:00:00 Completed [facility] Influenza Virus Vaccine 2021-06-11 00:00:00 Completed [facility] Influenza Virus Vaccine 2021-06-11 00:00:00 Completed [facility] Influenza Virus Vaccine 2021-06-11 00:00:00 Completed [facility] Influenza Virus Vaccine 2021-06-11 00:00:00 Completed [facility] Influenza Virus Vaccine 2021-06-11 00:00:00 Completed [facility] Influenza Virus Vaccine 2021-06-11 00:00:00 Completed [facility] Influenza Virus Vaccine 2021-06-11 00:00:00 Completed [facility] Influenza Virus Vaccine 2021-06-11 00:00:00 Completed [facility] Influenza Virus Vaccine 2021-06-11 00:00:00 Completed [facility] Influenza Virus Vaccine 2021-06-11 00:00:00 Completed [facility] Influenza Virus Vaccine 2021-06-11 00:00:00 Completed [facility] Influenza Virus Vaccine 2021-06-11 00:00:00 Completed [facility] Influenza Virus Vaccine 2021-06-11 00:00:00 Completed [facility] Influenza Virus Vaccine 2021-06-11 00:00:00 Completed [facility] Influenza Virus Vaccine 2021-06-11 00:00:00 Completed [facility] Influenza Virus Vaccine 2021-06-11 00:00:00 Completed [facility] Influenza Virus Vaccine 2021-06-11 00:00:00 Completed [facility] Influenza Virus Vaccine 2021-06-11 00:00:00 Completed [facility] Influenza Virus Vaccine 2021-06-11 00:00:00 Completed [facility] Influenza Virus Vaccine 2021-06-11 00:00:00 Completed [facility] Influenza Virus Vaccine 2021-06-11 00:00:00 Completed [facility] Influenza Virus Vaccine 2021-06-11 00:00:00 Completed [facility] Influenza Virus Vaccine 2021-06-11 00:00:00 Completed [facility] Influenza Virus Vaccine 2021-06-11 00:00:00 Completed [facility] Influenza Virus Vaccine Quad .5 mL IM 6+ MO 2021-06-11 00:00:00 Completed [facility] Influenza Virus Vaccine 2021-06-11 00:00:00 Completed [facility] Influenza Virus Vaccine Quad .5 mL IM 6+ MO 2021-06-11 00:00:00 Completed [facility] Influenza Virus Vaccine 2021-06-11 00:00:00 Completed [facility] Influenza Virus Vaccine Quad .5 mL IM 6+ MO 2021-06-11 00:00:00 Completed [facility] Influenza Virus Vaccine 2021-06-11 00:00:00 Completed [facility] Influenza Virus Vaccine Quad .5 mL IM 6+ MO 2021-06-11 00:00:00 Completed [facility] Influenza Virus Vaccine 2021-06-11 00:00:00 Completed [facility] Influenza Virus Vaccine Quad .5 mL IM 6+ MO 2021-06-11 00:00:00 Completed [facility] Influenza Virus Vaccine 2021-06-11 00:00:00 Completed [facility] Influenza Virus Vaccine Quad .5 mL IM 6+ MO 2021-06-11 00:00:00 Completed [facility] Influenza Virus Vaccine 2021-06-11 00:00:00 Completed [facility] Influenza Virus Vaccine Quad .5 mL IM 6+ MO 2021-06-11 00:00:00 Completed [facility] Influenza Virus Vaccine 2021-06-11 00:00:00 Completed [facility] Influenza Virus Vaccine Quad .5 mL IM 6+ MO 2021-06-11 00:00:00 Completed [facility] Influenza Virus Vaccine 2021-06-11 00:00:00 Completed [facility] Influenza Virus Vaccine Quad .5 mL IM 6+ MO 2021-06-11 00:00:00 Completed [facility] Influenza Virus Vaccine 2021-06-11 00:00:00 Completed [facility] Influenza Virus Vaccine Quad .5 mL IM 6+ MO 2021-06-11 00:00:00 Completed [facility] Influenza Virus Vaccine 2021-06-11 00:00:00 Completed [facility] Influenza Virus Vaccine Quad .5 mL IM 6+ MO 2021-06-11 00:00:00 Completed [facility] Influenza Virus Vaccine 2021-06-11 00:00:00 Completed [facility] Influenza Virus Vaccine Quad .5 mL IM 6+ MO 2021-06-11 00:00:00 Completed [facility] Influenza Virus Vaccine 2021-06-11 00:00:00 Completed [facility] Influenza Virus Vaccine Quad .5 mL IM 6+ MO 2021-06-11 00:00:00 Completed [facility] Influenza Virus Vaccine 2021-06-11 00:00:00 Completed [facility] Influenza Virus Vaccine Quad .5 mL IM 6+ MO (FLUZONE/FLULAVAL/F LUARIX) 2021-06-11 00:00:00 Completed [facility] Influenza Virus Vaccine 2021-06-11 00:00:00 Completed [facility] Influenza Virus Vaccine Quad .5 mL IM 6+ MO (FLUZONE/FLULAVAL/F LUARIX) 2021-06-11 00:00:00 Completed [facility] Influenza Virus Vaccine 2021-06-11 00:00:00 Completed [facility] Influenza Virus Vaccine Quad .5 mL IM 6+ MO (FLUZONE/FLULAVAL/F LUARIX) 2021-06-11 00:00:00 Completed [facility] Influenza Virus Vaccine 2020-05-19 00:00:00 Completed [facility] Influenza Virus Vaccine 2020-05-19 00:00:00 Completed [facility] Influenza Virus Vaccine 2020-05-19 00:00:00 Completed [facility] Influenza Virus Vaccine 2020-05-19 00:00:00 Completed [facility] Influenza Virus Vaccine 2020-05-19 00:00:00 Completed [facility] Influenza Virus Vaccine 2020-05-19 00:00:00 Completed [facility] Influenza Virus Vaccine 2020-05-19 00:00:00 Completed [facility] Influenza Virus Vaccine 2020-05-19 00:00:00 Completed [facility] Influenza Virus Vaccine 2020-05-19 00:00:00 Completed [facility] Influenza Virus Vaccine 2020-05-19 00:00:00 Completed [facility] Influenza Virus Vaccine 2020-05-19 00:00:00 Completed [facility] Influenza Virus Vaccine 2020-05-19 00:00:00 Completed [facility] Influenza Virus Vaccine 2020-05-19 00:00:00 Completed [facility] Influenza Virus Vaccine 2020-05-19 00:00:00 Completed [facility] Influenza Virus Vaccine 2020-05-19 00:00:00 Completed [facility] Influenza Virus Vaccine 2020-05-19 00:00:00 Completed [facility] Influenza Virus Vaccine 2020-05-19 00:00:00 Completed [facility] Influenza Virus Vaccine 2020-05-19 00:00:00 Completed [facility] Influenza Virus Vaccine 2020-05-19 00:00:00 Completed [facility] Influenza Virus Vaccine 2020-05-19 00:00:00 Completed [facility] Influenza Virus Vaccine 2020-05-19 00:00:00 Completed [facility] Influenza Virus Vaccine 2020-05-19 00:00:00 Completed [facility] Influenza Virus Vaccine 2020-05-19 00:00:00 Completed [facility] Influenza Virus Vaccine 2020-05-19 00:00:00 Completed [facility] Influenza Virus Vaccine 2020-05-19 00:00:00 Completed [facility] Influenza Virus Vaccine 2020-05-19 00:00:00 Completed [facility] Influenza Virus Vaccine 2020-05-19 00:00:00 Completed [facility] Influenza Virus Vaccine 2020-05-19 00:00:00 Completed [facility] Influenza Virus Vaccine 2020-05-19 00:00:00 Completed [facility] Influenza Virus Vaccine 2020-05-19 00:00:00 Completed [facility] Influenza Virus Vaccine 2020-05-19 00:00:00 Completed [facility] Influenza Virus Vaccine 2020-05-19 00:00:00 Completed [facility] Influenza Virus Vaccine 2020-05-19 00:00:00 Completed [facility] Influenza Virus Vaccine 2020-05-19 00:00:00 Completed [facility] Influenza Virus Vaccine 2020-05-19 00:00:00 Completed [facility] Influenza Virus Vaccine 2020-05-19 00:00:00 Completed [facility] Influenza Virus Vaccine 2020-05-19 00:00:00 Completed [facility] Influenza Virus Vaccine 2020-05-19 00:00:00 Completed [facility] Influenza Virus Vaccine 2020-05-19 00:00:00 Completed [facility] Influenza Virus Vaccine 2020-05-19 00:00:00 Completed [facility] Influenza Virus Vaccine 2020-05-19 00:00:00 Completed [facility] Influenza Virus Vaccine 2020-05-19 00:00:00 Completed [facility] Influenza Virus Vaccine 2020-05-19 00:00:00 Completed [facility] Influenza Virus Vaccine 2020-05-19 00:00:00 Completed [facility] Influenza Virus Vaccine 2020-05-19 00:00:00 Completed [facility] Influenza Virus Vaccine 2020-05-19 00:00:00 Completed [facility] Influenza Virus Vaccine 2020-05-19 00:00:00 Completed [facility] Influenza Virus Vaccine 2020-05-19 00:00:00 Completed [facility] Influenza Virus Vaccine 2020-05-19 00:00:00 Completed [facility] Influenza Virus Vaccine 2020-05-19 00:00:00 Completed [facility] Influenza Virus Vaccine 2020-05-19 00:00:00 Completed [facility] Influenza Virus Vaccine 2020-05-19 00:00:00 Completed [facility] Influenza Virus Vaccine 2020-05-19 00:00:00 Completed [facility] Influenza Virus Vaccine 2020-05-19 00:00:00 Completed [facility] Influenza Virus Vaccine 2020-05-19 00:00:00 Completed [facility] Influenza Virus Vaccine 2020-05-19 00:00:00 Completed [facility] Influenza Virus Vaccine 2020-05-19 00:00:00 Completed [facility] Influenza Virus Vaccine 2020-05-19 00:00:00 Completed [facility] Influenza Virus Vaccine 2020-05-19 00:00:00 Completed [facility] Influenza Virus Vaccine 2020-05-19 00:00:00 Completed [facility] Influenza Virus Vaccine 2020-05-19 00:00:00 Completed [facility] Influenza Virus Vaccine 2020-05-19 00:00:00 Completed [facility] Influenza Virus Vaccine 2020-05-19 00:00:00 Completed [facility] Influenza Virus Vaccine Recomb Quad IM, Preserv and ABX Free 18-64 YRS 2020-05-16 00:00:00 Completed [facility] Influenza Virus Vaccine Recomb Quad IM, Preserv and ABX Free 18-64 YRS 2020-05-16 00:00:00 Completed [facility] Influenza Virus Vaccine Recomb Quad IM, Preserv and ABX Free 18-64 YRS 2020-05-16 00:00:00 Completed [facility] Influenza Virus Vaccine Recomb Quad IM, Preserv and ABX Free 18-64 YRS 2020-05-16 00:00:00 Completed [facility] Influenza Virus Vaccine Recomb Quad IM, Preserv and ABX Free 18-64 YRS 2020-05-16 00:00:00 Completed [facility] Influenza Virus Vaccine Recomb Quad IM, Preserv and ABX Free 18-64 YRS 2020-05-16 00:00:00 Completed [facility] Influenza Virus Vaccine Recomb Quad IM, Preserv and ABX Free 18-64 YRS 2020-05-16 00:00:00 Completed [facility] Influenza Virus Vaccine Recomb Quad IM, Preserv and ABX Free 18-64 YRS 2020-05-16 00:00:00 Completed [facility] Influenza Virus Vaccine Recomb Quad IM, Preserv and ABX Free 18-64 YRS 2020-05-16 00:00:00 Completed [facility] Influenza Virus Vaccine Recomb Quad IM, Preserv and ABX Free 18-64 YRS 2020-05-16 00:00:00 Completed [facility] Influenza Virus Vaccine Recomb Quad IM, Preserv and ABX Free 18-64 YRS 2020-05-16 00:00:00 Completed [facility] Influenza Virus Vaccine Recomb Quad IM, Preserv and ABX Free 18-64 YRS 2020-05-16 00:00:00 Completed [facility] Influenza Virus Vaccine Recomb Quad IM, Preserv and ABX Free 18-64 YRS 2020-05-16 00:00:00 Completed [facility] Influenza Virus Vaccine Recomb Quad IM, Preserv and ABX Free 18-64 YRS 2020-05-16 00:00:00 Completed [facility] Influenza Virus Vaccine Recomb Quad IM, Preserv and ABX Free 18-64 YRS 2020-05-16 00:00:00 Completed [facility] Influenza Virus Vaccine Recomb Quad IM, Preserv and ABX Free 18-64 YRS 2020-05-16 00:00:00 Completed [facility] Influenza Virus Vaccine Recomb Quad IM, Preserv and ABX Free 18-64 YRS 2020-05-16 00:00:00 Completed [facility] Influenza Virus Vaccine Recomb Quad IM, Preserv and ABX Free 18-64 YRS 2020-05-16 00:00:00 Completed [facility] Influenza Virus Vaccine Recomb Quad IM, Preserv and ABX Free 18-64 YRS 2020-05-16 00:00:00 Completed [facility] Influenza Virus Vaccine Recomb Quad IM, Preserv and ABX Free 18-64 YRS 2020-05-16 00:00:00 Completed [facility] Influenza Virus Vaccine Recomb Quad IM, Preserv and ABX Free 18-64 YRS 2020-05-16 00:00:00 Completed [facility] Influenza Virus Vaccine Recomb Quad IM, Preserv and ABX Free 18-64 YRS 2020-05-16 00:00:00 Completed [facility] Influenza Virus Vaccine Recomb Quad IM, Preserv and ABX Free 18-64 YRS 2020-05-16 00:00:00 Completed [facility] Influenza Virus Vaccine Recomb Quad IM, Preserv and ABX Free 18-64 YRS 2020-05-16 00:00:00 Completed [facility] Influenza Virus Vaccine Recomb Quad IM, Preserv and ABX Free 18-64 YRS 2020-05-16 00:00:00 Completed [facility] Influenza Virus Vaccine Recomb Quad IM, Preserv and ABX Free 18-64 YRS 2020-05-16 00:00:00 Completed [facility] Influenza Virus Vaccine Recomb Quad IM, Preserv and ABX Free 18-64 YRS 2020-05-16 00:00:00 Completed [facility] Influenza Virus Vaccine Recomb Quad IM, Preserv and ABX Free 18-64 YRS 2020-05-16 00:00:00 Completed [facility] Influenza Virus Vaccine Recomb Quad IM, Preserv and ABX Free 18-64 YRS 2020-05-16 00:00:00 Completed [facility] Influenza Virus Vaccine Recomb Quad IM, Preserv and ABX Free 18-64 YRS 2020-05-16 00:00:00 Completed [facility] Influenza Virus Vaccine Recomb Quad IM, Preserv and ABX Free 18-64 YRS 2020-05-16 00:00:00 Completed [facility] Influenza Virus Vaccine Recomb Quad IM, Preserv and ABX Free 18-64 YRS 2020-05-16 00:00:00 Completed [facility] Influenza Virus Vaccine Recomb Quad IM, Preserv and ABX Free 18-64 YRS 2020-05-16 00:00:00 Completed [facility] Influenza Virus Vaccine Recomb Quad IM, Preserv and ABX Free 18-64 YRS 2020-05-16 00:00:00 Completed [facility] Influenza Virus Vaccine Recomb Quad IM, Preserv and ABX Free 18-64 YRS 2020-05-16 00:00:00 Completed [facility] Influenza Virus Vaccine Recomb Quad IM, Preserv and ABX Free 18-64 YRS 2020-05-16 00:00:00 Completed [facility] Influenza Virus Vaccine Recomb Quad IM, Preserv and ABX Free 18-64 YRS 2020-05-16 00:00:00 Completed [facility] Influenza Virus Vaccine Recomb Quad IM, Preserv and ABX Free 18-64 YRS 2020-05-16 00:00:00 Completed [facility] Influenza Virus Vaccine Recomb Quad IM, Preserv and ABX Free 18-64 YRS 2020-05-16 00:00:00 Completed [facility] Influenza Virus Vaccine Recomb Quad IM, Preserv and ABX Free 18-64 YRS 2020-05-16 00:00:00 Completed [facility] Influenza Virus Vaccine Recomb Quad IM, Preserv and ABX Free 18-64 YRS 2020-05-16 00:00:00 Completed [facility] Influenza Virus Vaccine Recomb Quad IM, Preserv and ABX Free 18-64 YRS 2020-05-16 00:00:00 Completed [facility] Influenza Virus Vaccine Recomb Quad IM, Preserv and ABX Free 18-64 YRS 2020-05-16 00:00:00 Completed [facility] Influenza Virus Vaccine Recomb Quad IM, Preserv and ABX Free 18-64 YRS 2020-05-16 00:00:00 Completed [facility] Influenza Virus Vaccine Recomb Quad IM, Preserv and ABX Free 18-64 YRS 2020-05-16 00:00:00 Completed [facility] Influenza Virus Vaccine Recomb Quad IM, Preserv and ABX Free 18-64 YRS 2020-05-16 00:00:00 Completed [facility] Influenza Virus Vaccine Recomb Quad IM, Preserv and ABX Free 18-64 YRS 2020-05-16 00:00:00 Completed [facility] Influenza Virus Vaccine Recomb Quad IM, Preserv and ABX Free 18-64 YRS 2020-05-16 00:00:00 Completed [facility] Influenza Virus Vaccine Recomb Quad IM, Preserv and ABX Free 18-64 YRS 2020-05-16 00:00:00 Completed [facility] Influenza Virus Vaccine Recomb Quad IM, Preserv and ABX Free 18-64 YRS 2020-05-16 00:00:00 Completed [facility] Influenza Virus Vaccine Recomb Quad IM, Preserv and ABX Free 18-64 YRS 2020-05-16 00:00:00 Completed [facility] Influenza Virus Vaccine Recomb Quad IM, Preserv and ABX Free 18-64 YRS 2020-05-16 00:00:00 Completed [facility] Influenza Virus Vaccine Recomb Quad IM, Preserv and ABX Free 18-64 YRS 2020-05-16 00:00:00 Completed [facility] Influenza Virus Vaccine Recomb Quad IM, Preserv and ABX Free 18-64 YRS 2020-05-16 00:00:00 Completed [facility] Influenza Virus Vaccine Recomb Quad IM, Preserv and ABX Free 18-64 YRS 2020-05-16 00:00:00 Completed [facility] Influenza Virus Vaccine Recomb Quad IM, Preserv and ABX Free 18-64 YRS 2020-05-16 00:00:00 Completed [facility] Influenza Virus Vaccine Recomb Quad IM, Preserv and ABX Free 18-64 YRS 2020-05-16 00:00:00 Completed [facility] Influenza Virus Vaccine Recomb Quad IM, Preserv and ABX Free 18-64 YRS 2020-05-16 00:00:00 Completed [facility] Influenza Virus Vaccine Recomb Quad IM, Preserv and ABX Free 18-64 YRS 2020-05-16 00:00:00 Completed [facility] Influenza Virus Vaccine Recomb Quad IM, Preserv and ABX Free 18-64 YRS 2020-05-16 00:00:00 Completed [facility] Influenza Virus Vaccine Recomb Quad IM, Preserv and ABX Free 18-64 YRS 2020-05-16 00:00:00 Completed [facility] Influenza Virus Vaccine Recomb Quad IM, Preserv and ABX Free 18-64 YRS 2020-05-16 00:00:00 Completed [facility] Influenza Virus Vaccine Recomb Quad IM, Preserv and ABX Free 18-64 YRS 2020-05-16 00:00:00 Completed [facility] TDAP (ADACEL) VACCINE 2019-05-21 00:00:00 Completed [facility] TDAP (ADACEL) VACCINE 2019-05-21 00:00:00 Completed [facility] TDAP (ADACEL) VACCINE 2019-05-21 00:00:00 Completed [facility] TDAP (ADACEL) VACCINE 2019-05-21 00:00:00 Completed [facility] TDAP (ADACEL) VACCINE 2019-05-21 00:00:00 Completed [facility] TDAP (ADACEL) VACCINE 2019-05-21 00:00:00 Completed [facility] TDAP (ADACEL) VACCINE 2019-05-21 00:00:00 Completed [facility] TDAP (ADACEL) VACCINE 2019-05-21 00:00:00 Completed [facility] TDAP (ADACEL) VACCINE 2019-05-21 00:00:00 Completed [facility] TDAP (ADACEL) VACCINE 2019-05-21 00:00:00 Completed [facility] TDAP (ADACEL) VACCINE 2019-05-21 00:00:00 Completed [facility] TDAP (ADACEL) VACCINE 2019-05-21 00:00:00 Completed [facility] TDAP (ADACEL) VACCINE 2019-05-21 00:00:00 Completed [facility] TDAP (ADACEL) VACCINE 2019-05-21 00:00:00 Completed [facility] TDAP (ADACEL) VACCINE 2019-05-21 00:00:00 Completed [facility] TDAP (ADACEL) VACCINE 2019-05-21 00:00:00 Completed [facility] TDAP (ADACEL) VACCINE 2019-05-21 00:00:00 Completed [facility] TDAP (ADACEL) VACCINE 2019-05-21 00:00:00 Completed [facility] TDAP (ADACEL) VACCINE 2019-05-21 00:00:00 Completed [facility] TDAP (ADACEL) VACCINE 2019-05-21 00:00:00 Completed [facility] TDAP (ADACEL) VACCINE 2019-05-21 00:00:00 Completed [facility] TDAP (ADACEL) VACCINE 2019-05-21 00:00:00 Completed [facility] TDAP (ADACEL) VACCINE 2019-05-21 00:00:00 Completed [facility] TDAP (ADACEL) VACCINE 2019-05-21 00:00:00 Completed [facility] TDAP (ADACEL) VACCINE 2019-05-21 00:00:00 Completed [facility] TDAP (ADACEL) VACCINE 2019-05-21 00:00:00 Completed [facility] TDAP (ADACEL) VACCINE 2019-05-21 00:00:00 Completed [facility] TDAP (ADACEL) VACCINE 2019-05-21 00:00:00 Completed [facility] TDAP (ADACEL) VACCINE 2019-05-21 00:00:00 Completed [facility] TDAP (ADACEL) VACCINE 2019-05-21 00:00:00 Completed [facility] TDAP (ADACEL) VACCINE 2019-05-21 00:00:00 Completed [facility] TDAP (ADACEL) VACCINE 2019-05-21 00:00:00 Completed [facility] TDAP (ADACEL) VACCINE 2019-05-21 00:00:00 Completed [facility] TDAP (ADACEL) VACCINE 2019-05-21 00:00:00 Completed [facility] TDAP (ADACEL) VACCINE 2019-05-21 00:00:00 Completed [facility] TDAP (ADACEL) VACCINE 2019-05-21 00:00:00 Completed [facility] TDAP (ADACEL) VACCINE 2019-05-21 00:00:00 Completed [facility] TDAP (ADACEL) VACCINE 2019-05-21 00:00:00 Completed [facility] TDAP (ADACEL) VACCINE 2019-05-21 00:00:00 Completed [facility] TDAP (ADACEL) VACCINE 2019-05-21 00:00:00 Completed [facility] TDAP (ADACEL) VACCINE 2019-05-21 00:00:00 Completed [facility] TDAP (ADACEL) VACCINE 2019-05-21 00:00:00 Completed [facility] TDAP (ADACEL) VACCINE 2019-05-21 00:00:00 Completed [facility] TDAP (ADACEL) VACCINE 2019-05-21 00:00:00 Completed [facility] TDAP (ADACEL) VACCINE 2019-05-21 00:00:00 Completed [facility] TDAP (ADACEL) VACCINE 2019-05-21 00:00:00 Completed [facility] TDAP (ADACEL) VACCINE 2019-05-21 00:00:00 Completed [facility] TDAP (ADACEL) VACCINE 2019-05-21 00:00:00 Completed [facility] TDAP (ADACEL) VACCINE 2019-05-21 00:00:00 Completed [facility] TDAP (ADACEL) VACCINE 2019-05-21 00:00:00 Completed [facility] TDAP (ADACEL) VACCINE 2019-05-21 00:00:00 Completed [facility] TDAP (ADACEL) VACCINE 2019-05-21 00:00:00 Completed [facility] TDAP (ADACEL) VACCINE 2019-05-21 00:00:00 Completed [facility] TDAP (ADACEL) VACCINE 2019-05-21 00:00:00 Completed [facility] TDAP (ADACEL) VACCINE 2019-05-21 00:00:00 Completed [facility] TDAP (ADACEL) VACCINE 2019-05-21 00:00:00 Completed [facility] TDAP (ADACEL) VACCINE 2019-05-21 00:00:00 Completed [facility] TDAP (ADACEL) VACCINE 2019-05-21 00:00:00 Completed [facility] TDAP (ADACEL) VACCINE 2019-05-21 00:00:00 Completed [facility] TDAP (ADACEL) VACCINE 2019-05-21 00:00:00 Completed [facility] TDAP (ADACEL) VACCINE 2019-05-21 00:00:00 Completed [facility] TDAP (ADACEL) VACCINE 2019-05-21 00:00:00 Completed [facility] TDAP (ADACEL) VACCINE 2019-05-21 00:00:00 Completed [facility] Influenza Virus Vaccine Quad .5 mL IM 6+ MO 2019-02-06 00:00:00 Completed [facility] Influenza Virus Vaccine Quad .5 mL IM 6+ MO 2019-02-06 00:00:00 Completed [facility] Influenza Virus Vaccine Quad .5 mL IM 6+ MO 2019-02-06 00:00:00 Completed [facility] Influenza Virus Vaccine Quad .5 mL IM 6+ MO 2019-02-06 00:00:00 Completed [facility] Influenza Virus Vaccine Quad .5 mL IM 6+ MO 2019-02-06 00:00:00 Completed [facility] Influenza Virus Vaccine Quad .5 mL IM 6+ MO 2019-02-06 00:00:00 Completed [facility] Influenza Virus Vaccine Quad .5 mL IM 6+ MO 2019-02-06 00:00:00 Completed [facility] Influenza Virus Vaccine Quad .5 mL IM 6+ MO 2019-02-06 00:00:00 Completed [facility] Influenza Virus Vaccine Quad .5 mL IM 6+ MO 2019-02-06 00:00:00 Completed [facility] Influenza Virus Vaccine Quad .5 mL IM 6+ MO 2019-02-06 00:00:00 Completed [facility] Influenza Virus Vaccine Quad .5 mL IM 6+ MO 2019-02-06 00:00:00 Completed [facility] Influenza Virus Vaccine Quad .5 mL IM 6+ MO 2019-02-06 00:00:00 Completed [facility] Influenza Virus Vaccine Quad .5 mL IM 6+ MO 2019-02-06 00:00:00 Completed [facility] Influenza Virus Vaccine Quad .5 mL IM 6+ MO 2019-02-06 00:00:00 Completed [facility] Influenza Virus Vaccine Quad .5 mL IM 6+ MO 2019-02-06 00:00:00 Completed [facility] Influenza Virus Vaccine Quad .5 mL IM 6+ MO 2019-02-06 00:00:00 Completed [facility] Influenza Virus Vaccine Quad .5 mL IM 6+ MO 2019-02-06 00:00:00 Completed [facility] Influenza Virus Vaccine Quad .5 mL IM 6+ MO 2019-02-06 00:00:00 Completed [facility] Influenza Virus Vaccine Quad .5 mL IM 6+ MO 2019-02-06 00:00:00 Completed [facility] Influenza Virus Vaccine Quad .5 mL IM 6+ MO 2019-02-06 00:00:00 Completed [facility] Influenza Virus Vaccine Quad .5 mL IM 6+ MO 2019-02-06 00:00:00 Completed [facility] Influenza Virus Vaccine Quad .5 mL IM 6+ MO 2019-02-06 00:00:00 Completed [facility] Influenza Virus Vaccine Quad .5 mL IM 6+ MO 2019-02-06 00:00:00 Completed [facility] Influenza Virus Vaccine Quad .5 mL IM 6+ MO 2019-02-06 00:00:00 Completed [facility] Influenza Virus Vaccine Quad .5 mL IM 6+ MO 2019-02-06 00:00:00 Completed [facility] Influenza Virus Vaccine Quad .5 mL IM 6+ MO 2019-02-06 00:00:00 Completed [facility] Influenza Virus Vaccine Quad .5 mL IM 6+ MO 2019-02-06 00:00:00 Completed [facility] Influenza Virus Vaccine Quad .5 mL IM 6+ MO 2019-02-06 00:00:00 Completed [facility] Influenza Virus Vaccine Quad .5 mL IM 6+ MO 2019-02-06 00:00:00 Completed [facility] Influenza Virus Vaccine Quad .5 mL IM 6+ MO 2019-02-06 00:00:00 Completed [facility] Influenza Virus Vaccine Quad .5 mL IM 6+ MO 2019-02-06 00:00:00 Completed [facility] Influenza Virus Vaccine Quad .5 mL IM 6+ MO 2019-02-06 00:00:00 Completed [facility] Influenza Virus Vaccine Quad .5 mL IM 6+ MO 2019-02-06 00:00:00 Completed [facility] Influenza Virus Vaccine Quad .5 mL IM 6+ MO 2019-02-06 00:00:00 Completed [facility] Influenza Virus Vaccine Quad .5 mL IM 6+ MO 2019-02-06 00:00:00 Completed [facility] Influenza Virus Vaccine Quad .5 mL IM 6+ MO 2019-02-06 00:00:00 Completed [facility] Influenza Virus Vaccine Quad .5 mL IM 6+ MO 2019-02-06 00:00:00 Completed [facility] Influenza Virus Vaccine Quad .5 mL IM 6+ MO 2019-02-06 00:00:00 Completed [facility] Influenza Virus Vaccine Quad .5 mL IM 6+ MO 2019-02-06 00:00:00 Completed [facility] Influenza Virus Vaccine Quad .5 mL IM 6+ MO 2019-02-06 00:00:00 Completed [facility] Influenza Virus Vaccine Quad .5 mL IM 6+ MO 2019-02-06 00:00:00 Completed [facility] Influenza Virus Vaccine Quad .5 mL IM 6+ MO 2019-02-06 00:00:00 Completed [facility] Influenza Virus Vaccine Quad .5 mL IM 6+ MO 2019-02-06 00:00:00 Completed [facility] Influenza Virus Vaccine Quad .5 mL IM 6+ MO 2019-02-06 00:00:00 Completed [facility] Influenza Virus Vaccine Quad .5 mL IM 6+ MO 2019-02-06 00:00:00 Completed [facility] Influenza Virus Vaccine Quad .5 mL IM 6+ MO 2019-02-06 00:00:00 Completed [facility] Influenza Virus Vaccine Quad .5 mL IM 6+ MO 2019-02-06 00:00:00 Completed [facility] Influenza Virus Vaccine Quad .5 mL IM 6+ MO 2019-02-06 00:00:00 Completed [facility] Influenza Virus Vaccine Quad .5 mL IM 6+ MO 2019-02-06 00:00:00 Completed [facility] Influenza Virus Vaccine Quad .5 mL IM 6+ MO 2019-02-06 00:00:00 Completed [facility] Influenza Virus Vaccine Quad .5 mL IM 6+ MO 2019-02-06 00:00:00 Completed [facility] Influenza Virus Vaccine Quad .5 mL IM 6+ MO 2019-02-06 00:00:00 Completed [facility] Influenza Virus Vaccine Quad .5 mL IM 6+ MO 2019-02-06 00:00:00 Completed [facility] Influenza Virus Vaccine Quad .5 mL IM 6+ MO 2019-02-06 00:00:00 Completed [facility] Influenza Virus Vaccine Quad .5 mL IM 6+ MO 2019-02-06 00:00:00 Completed [facility] Influenza Virus Vaccine Quad .5 mL IM 6+ MO 2019-02-06 00:00:00 Completed [facility] Influenza Virus Vaccine Quad .5 mL IM 6+ MO 2019-02-06 00:00:00 Completed [facility] Influenza Virus Vaccine Quad .5 mL IM 6+ MO 2019-02-06 00:00:00 Completed [facility] Influenza Virus Vaccine Quad .5 mL IM 6+ MO 2019-02-06 00:00:00 Completed [facility] Influenza Virus Vaccine Quad .5 mL IM 6+ MO 2019-02-06 00:00:00 Completed [facility] Influenza Virus Vaccine Quad .5 mL IM 6+ MO (FLUZONE/FLULAVAL/F LUARIX) 2019-02-06 00:00:00 Completed [facility] Influenza Virus Vaccine Quad .5 mL IM 6+ MO (FLUZONE/FLULAVAL/F LUARIX) 2019-02-06 00:00:00 Completed [facility] Influenza Virus Vaccine Quad .5 mL IM 6+ MO (FLUZONE/FLULAVAL/F LUARIX) 2019-02-06 00:00:00 Completed [facility] Influenza Virus Vaccine Quad .5 mL IM 6+ MO (FLUZONE/FLULAVAL/F LUARIX) Unknown Completed [facility] TDAP (ADACEL) VACCINE Unknown Completed [facility] Influenza Virus Vaccine Recomb Quad IM, Preserv and ABX Free 18-64 YRS Unknown Completed [facility] Influenza Virus Vaccine Unknown Completed [facility] Influenza Virus Vaccine Unknown Completed [facility] Influenza Virus Vaccine Quad IM, Preserv and ABX Free 6 MO-64 YRS (FLUCELVAX) Unknown Completed [facility] Influenza Virus Vaccine Quad .5 mL IM 6+ MO (FLUZONE/FLULAVAL/F LUARIX) Unknown Completed [facility] Influenza Virus Vaccine Quad .5 mL IM 6+ MO (FLUZONE/FLULAVAL/F LUARIX) Unknown Completed [facility] Influenza Virus Vaccine Quad .5 mL IM 6+ MO (FLUZONE/FLULAVAL/F LUARIX) Unknown Completed [facility] TDAP (ADACEL) VACCINE Unknown Completed [facility] Influenza Virus Vaccine Recomb Quad IM, Preserv and ABX Free 18-64 YRS Unknown Completed [facility] Influenza Virus Vaccine Unknown Completed [facility] Influenza Virus Vaccine Unknown Completed [facility] Influenza Virus Vaccine Quad IM, Preserv and ABX Free 6 MO-64 YRS (FLUCELVAX) Unknown Completed [facility] Influenza Virus Vaccine Quad .5 mL IM 6+ MO (FLUZONE/FLULAVAL/F LUARIX) Unknown Completed [facility] Influenza Virus Vaccine Quad .5 mL IM 6+ MO (FLUZONE/FLULAVAL/F LUARIX) Unknown Completed [facility] Influenza Virus Vaccine Quad .5 mL IM 6+ MO (FLUZONE/FLULAVAL/F LUARIX) Unknown Completed [facility] TDAP (ADACEL) VACCINE Unknown Completed [facility] Influenza Virus Vaccine Recomb Quad IM, Preserv and ABX Free 18-64 YRS Unknown Completed [facility] Influenza Virus Vaccine Unknown Completed [facility] Influenza Virus Vaccine Unknown Completed [facility] Influenza Virus Vaccine Quad .5 mL IM 6+ MO (FLUZONE/FLULAVAL/F LUARIX) Unknown Completed [facility] Influenza Virus Vaccine Quad .5 mL IM 6+ MO (FLUZONE/FLULAVAL/F LUARIX) Unknown Completed [facility] TDAP (ADACEL) VACCINE Unknown Completed [facility] Influenza Virus Vaccine Recomb Quad IM, Preserv and ABX Free 18-64 YRS Unknown Completed [facility] Influenza Virus Vaccine Unknown Completed [facility] Influenza Virus Vaccine Unknown Completed [facility] Influenza Virus Vaccine Quad .5 mL IM 6+ MO (FLUZONE/FLULAVAL/F LUARIX) Unknown Completed [facility] Influenza Virus Vaccine Quad .5 mL IM 6+ MO (FLUZONE/FLULAVAL/F LUARIX) Unknown Completed [facility] TDAP (ADACEL) VACCINE Unknown Completed [facility] Influenza Virus Vaccine Recomb Quad IM, Preserv and ABX Free 18-64 YRS Unknown Completed [facility] Influenza Virus Vaccine Unknown Completed [facility] Influenza Virus Vaccine Unknown Completed [facility] Influenza Virus Vaccine Quad .5 mL IM 6+ MO (FLUZONE/FLULAVAL/F LUARIX) Unknown Completed [facility] Influenza Virus Vaccine Quad .5 mL IM 6+ MO (FLUZONE/FLULAVAL/F LUARIX) Unknown Completed [facility] TDAP (ADACEL) VACCINE Unknown Completed [facility] Influenza Virus Vaccine Recomb Quad IM, Preserv and ABX Free 18-64 YRS Unknown Completed [facility] Influenza Virus Vaccine Unknown Completed [facility] Influenza Virus Vaccine Unknown Completed [facility] Influenza Virus Vaccine Quad .5 mL IM 6+ MO (FLUZONE/FLULAVAL/F LUARIX) Unknown Completed [facility] Influenza Virus Vaccine Quad .5 mL IM 6+ MO (FLUZONE/FLULAVAL/F LUARIX) Unknown Completed [facility] TDAP (ADACEL) VACCINE Unknown Completed [facility] Influenza Virus Vaccine Recomb Quad IM, Preserv and ABX Free 18-64 YRS Unknown Completed [facility] Influenza Virus Vaccine Unknown Completed [facility] Influenza Virus Vaccine Unknown Completed [facility] Influenza Virus Vaccine Quad .5 mL IM 6+ MO (FLUZONE/FLULAVAL/F LUARIX) Unknown Completed [facility] Influenza Virus Vaccine Quad .5 mL IM 6+ MO (FLUZONE/FLULAVAL/F LUARIX) Unknown Completed [facility] TDAP (ADACEL) VACCINE Unknown Completed [facility] Influenza Virus Vaccine Recomb Quad IM, Preserv and ABX Free 18-64 YRS Unknown Completed [facility] Influenza Virus Vaccine Unknown Completed [facility] Influenza Virus Vaccine Unknown Completed [facility] Influenza Virus Vaccine Quad .5 mL IM 6+ MO (FLUZONE/FLULAVAL/F LUARIX) Unknown Completed [facility] Influenza Virus Vaccine Quad .5 mL IM 6+ MO (FLUZONE/FLULAVAL/F LUARIX) Unknown Completed [facility] TDAP (ADACEL) VACCINE Unknown Completed [facility] Influenza Virus Vaccine Recomb Quad IM, Preserv and ABX Free 18-64 YRS Unknown Completed [facility] Influenza Virus Vaccine Unknown Completed [facility] Influenza Virus Vaccine Unknown Completed [facility] Influenza Virus Vaccine Quad .5 mL IM 6+ MO (FLUZONE/FLULAVAL/F LUARIX) Unknown Completed [facility] Influenza Virus Vaccine Quad .5 mL IM 6+ MO (FLUZONE/FLULAVAL/F LUARIX) Unknown Completed [facility] TDAP (ADACEL) VACCINE Unknown Completed [facility] Influenza Virus Vaccine Recomb Quad IM, Preserv and ABX Free 18-64 YRS Unknown Completed [facility] Influenza Virus Vaccine Unknown Completed [facility] Influenza Virus Vaccine Unknown Completed [facility] Influenza Virus Vaccine Quad .5 mL IM 6+ MO (FLUZONE/FLULAVAL/F LUARIX) Unknown Completed [facility] Influenza Virus Vaccine Quad .5 mL IM 6+ MO (FLUZONE/FLULAVAL/F LUARIX) Unknown Completed [facility] TDAP (ADACEL) VACCINE Unknown Completed [facility] Influenza Virus Vaccine Recomb Quad IM, Preserv and ABX Free 18-64 YRS Unknown Completed [facility] Influenza Virus Vaccine Unknown Completed [facility] Influenza Virus Vaccine Unknown Completed [facility] Influenza Virus Vaccine Quad .5 mL IM 6+ MO (FLUZONE/FLULAVAL/F LUARIX) Unknown Completed [facility] Influenza Virus Vaccine Quad .5 mL IM 6+ MO (FLUZONE/FLULAVAL/F LUARIX) Unknown Completed [facility] TDAP (ADACEL) VACCINE Unknown Completed [facility] Influenza Virus Vaccine Recomb Quad IM, Preserv and ABX Free 18-64 YRS Unknown Completed [facility] Influenza Virus Vaccine Unknown Completed [facility] Influenza Virus Vaccine Unknown Completed [facility] Influenza Virus Vaccine Quad .5 mL IM 6+ MO (FLUZONE/FLULAVAL/F LUARIX) Unknown Completed [facility] Influenza Virus Vaccine Quad .5 mL IM 6+ MO (FLUZONE/FLULAVAL/F LUARIX) Unknown Completed [facility] TDAP (ADACEL) VACCINE Unknown Completed [facility] Influenza Virus Vaccine Recomb Quad IM, Preserv and ABX Free 18-64 YRS Unknown Completed [facility] Influenza Virus Vaccine Unknown Completed [facility] Influenza Virus Vaccine Unknown Completed [facility] Influenza Virus Vaccine Quad .5 mL IM 6+ MO (FLUZONE/FLULAVAL/F LUARIX) Unknown Completed [facility] Influenza Virus Vaccine Quad .5 mL IM 6+ MO (FLUZONE/FLULAVAL/F LUARIX) Unknown Completed [facility] TDAP (ADACEL) VACCINE Unknown Completed [facility] Influenza Virus Vaccine Recomb Quad IM, Preserv and ABX Free 18-64 YRS Unknown Completed [facility] Influenza Virus Vaccine Unknown Completed [facility] Influenza Virus Vaccine Unknown Completed [facility] Influenza Virus Vaccine Quad .5 mL IM 6+ MO (FLUZONE/FLULAVAL/F LUARIX) Unknown Completed [facility] Influenza Virus Vaccine Quad .5 mL IM 6+ MO (FLUZONE/FLULAVAL/F LUARIX) Unknown Completed [facility] TDAP (ADACEL) VACCINE Unknown Completed [facility] Influenza Virus Vaccine Recomb Quad IM, Preserv and ABX Free 18-64 YRS Unknown Completed [facility] Influenza Virus Vaccine Unknown Completed [facility] Influenza Virus Vaccine Unknown Completed [facility] Influenza Virus Vaccine Quad .5 mL IM 6+ MO (FLUZONE/FLULAVAL/F LUARIX) Unknown Completed [facility] Influenza Virus Vaccine Quad .5 mL IM 6+ MO (FLUZONE/FLULAVAL/F LUARIX) Unknown Completed [facility] TDAP (ADACEL) VACCINE Unknown Completed [facility] Influenza Virus Vaccine Recomb Quad IM, Preserv and ABX Free 18-64 YRS Unknown Completed [facility] Influenza Virus Vaccine Unknown Completed [facility] Influenza Virus Vaccine Unknown Completed [facility] Influenza Virus Vaccine Quad .5 mL IM 6+ MO (FLUZONE/FLULAVAL/F LUARIX) Unknown Completed [facility] Influenza Virus Vaccine Quad .5 mL IM 6+ MO (FLUZONE/FLULAVAL/F LUARIX) Unknown Completed [facility] TDAP (ADACEL) VACCINE Unknown Completed [facility] Influenza Virus Vaccine Recomb Quad IM, Preserv and ABX Free 18-64 YRS Unknown Completed [facility] Influenza Virus Vaccine Unknown Completed [facility] Influenza Virus Vaccine Unknown Completed [facility] Influenza Virus Vaccine Quad .5 mL IM 6+ MO (FLUZONE/FLULAVAL/F LUARIX) Unknown Completed [facility] Influenza Virus Vaccine Quad .5 mL IM 6+ MO (FLUZONE/FLULAVAL/F LUARIX) Unknown Completed [facility] TDAP (ADACEL) VACCINE Unknown Completed [facility] Influenza Virus Vaccine Recomb Quad IM, Preserv and ABX Free 18-64 YRS Unknown Completed [facility] Influenza Virus Vaccine Unknown Completed [facility] Influenza Virus Vaccine Unknown Completed [facility] Influenza Virus Vaccine Quad .5 mL IM 6+ MO (FLUZONE/FLULAVAL/F LUARIX) Unknown Completed [facility] Influenza Virus Vaccine Quad .5 mL IM 6+ MO (FLUZONE/FLULAVAL/F LUARIX) Unknown Completed [facility] TDAP (ADACEL) VACCINE Unknown Completed [facility] Influenza Virus Vaccine Recomb Quad IM, Preserv and ABX Free 18-64 YRS Unknown Completed [facility] Influenza Virus Vaccine Unknown Completed [facility] Influenza Virus Vaccine Quad .5 mL IM 6+ MO (FLUZONE/FLULAVAL/F LUARIX) Unknown Completed [facility] TDAP (ADACEL) VACCINE Unknown Completed [facility] Influenza Virus Vaccine Recomb Quad IM, Preserv and ABX Free 18-64 YRS Unknown Completed [facility] Influenza Virus Vaccine Unknown Completed [facility] Influenza Virus Vaccine Quad .5 mL IM 6+ MO (FLUZONE/FLULAVAL/F LUARIX) Unknown Completed [facility] TDAP (ADACEL) VACCINE Unknown Completed [facility] Influenza Virus Vaccine Recomb Quad IM, Preserv and ABX Free 18-64 YRS Unknown Completed [facility] Influenza Virus Vaccine Unknown Completed [facility] Influenza Virus Vaccine Quad .5 mL IM 6+ MO (FLUZONE/FLULAVAL/F LUARIX) Unknown Completed [facility] TDAP (ADACEL) VACCINE Unknown Completed [facility] Influenza Virus Vaccine Recomb Quad IM, Preserv and ABX Free 18-64 YRS Unknown Completed [facility] Influenza Virus Vaccine Unknown Completed [facility] Influenza Virus Vaccine Quad .5 mL IM 6+ MO (FLUZONE/FLULAVAL/F LUARIX) Unknown Completed [facility] TDAP (ADACEL) VACCINE Unknown Completed [facility] Influenza Virus Vaccine Recomb Quad IM, Preserv and ABX Free 18-64 YRS Unknown Completed [facility] Influenza Virus Vaccine Unknown Completed [facility] Influenza Virus Vaccine Quad .5 mL IM 6+ MO (FLUZONE/FLULAVAL/F LUARIX) Unknown Completed [facility] TDAP (ADACEL) VACCINE Unknown Completed [facility] Influenza Virus Vaccine Recomb Quad IM, Preserv and ABX Free 18-64 YRS Unknown Completed [facility] Influenza Virus Vaccine Unknown Completed [facility] Influenza Virus Vaccine Quad .5 mL IM 6+ MO (FLUZONE/FLULAVAL/F LUARIX) Unknown Completed [facility] TDAP (ADACEL) VACCINE Unknown Completed [facility] Influenza Virus Vaccine Recomb Quad IM, Preserv and ABX Free 18-64 YRS Unknown Completed [facility] Influenza Virus Vaccine Unknown Completed [facility] Influenza Virus Vaccine Quad .5 mL IM 6+ MO (FLUZONE/FLULAVAL/F LUARIX) Unknown Completed [facility] TDAP (ADACEL) VACCINE Unknown Completed [facility] Influenza Virus Vaccine Recomb Quad IM, Preserv and ABX Free 18-64 YRS Unknown Completed [facility] Influenza Virus Vaccine Unknown Completed [facility] Influenza Virus Vaccine Quad .5 mL IM 6+ MO (FLUZONE/FLULAVAL/F LUARIX) Unknown Completed [facility] TDAP (ADACEL) VACCINE Unknown Completed [facility] Influenza Virus Vaccine Recomb Quad IM, Preserv and ABX Free 18-64 YRS Unknown Completed [facility] Influenza Virus Vaccine Unknown Completed [facility] Influenza Virus Vaccine Quad .5 mL IM 6+ MO (FLUZONE/FLULAVAL/F LUARIX) Unknown Completed [facility] TDAP (ADACEL) VACCINE Unknown Completed [facility] Influenza Virus Vaccine Recomb Quad IM, Preserv and ABX Free 18-64 YRS Unknown Completed [facility] Influenza Virus Vaccine Unknown Completed [facility] Influenza Virus Vaccine Quad .5 mL IM 6+ MO (FLUZONE/FLULAVAL/F LUARIX) Unknown Completed [facility] TDAP (ADACEL) VACCINE Unknown Completed [facility] Influenza Virus Vaccine Recomb Quad IM, Preserv and ABX Free 18-64 YRS Unknown Completed [facility] Influenza Virus Vaccine Unknown Completed [facility] Influenza Virus Vaccine Quad .5 mL IM 6+ MO (FLUZONE/FLULAVAL/F LUARIX) Unknown Completed [facility] TDAP (ADACEL) VACCINE Unknown Completed [facility] Influenza Virus Vaccine Recomb Quad IM, Preserv and ABX Free 18-64 YRS Unknown Completed [facility] Influenza Virus Vaccine Unknown Completed [facility] Influenza Virus Vaccine Quad .5 mL IM 6+ MO (FLUZONE/FLULAVAL/F LUARIX) Unknown Completed [facility] TDAP (ADACEL) VACCINE Unknown Completed [facility] Influenza Virus Vaccine Recomb Quad IM, Preserv and ABX Free 18-64 YRS Unknown Completed [facility] Influenza Virus Vaccine Unknown Completed [facility] Influenza Virus Vaccine Quad .5 mL IM 6+ MO (FLUZONE/FLULAVAL/F LUARIX) Unknown Completed [facility] TDAP (ADACEL) VACCINE Unknown Completed [facility] Influenza Virus Vaccine Recomb Quad IM, Preserv and ABX Free 18-64 YRS Unknown Completed [facility] Influenza Virus Vaccine Unknown Completed [facility] Influenza Virus Vaccine Quad .5 mL IM 6+ MO (FLUZONE/FLULAVAL/F LUARIX) Unknown Completed [facility] TDAP (ADACEL) VACCINE Unknown Completed [facility] Influenza Virus Vaccine Recomb Quad IM, Preserv and ABX Free 18-64 YRS Unknown Completed [facility] Influenza Virus Vaccine Unknown Completed [facility] Influenza Virus Vaccine Quad .5 mL IM 6+ MO (FLUZONE/FLULAVAL/F LUARIX) Unknown Completed [facility] TDAP (ADACEL) VACCINE Unknown Completed [facility] Influenza Virus Vaccine Recomb Quad IM, Preserv and ABX Free 18-64 YRS Unknown Completed [facility] Influenza Virus Vaccine Unknown Completed [facility] Influenza Virus Vaccine Quad .5 mL IM 6+ MO (FLUZONE/FLULAVAL/F LUARIX) Unknown Completed [facility] TDAP (ADACEL) VACCINE Unknown Completed [facility] Influenza Virus Vaccine Recomb Quad IM, Preserv and ABX Free 18-64 YRS Unknown Completed [facility] Influenza Virus Vaccine Unknown Completed [facility] Influenza Virus Vaccine Quad .5 mL IM 6+ MO (FLUZONE/FLULAVAL/F LUARIX) Unknown Completed [facility] TDAP (ADACEL) VACCINE Unknown Completed [facility] Influenza Virus Vaccine Recomb Quad IM, Preserv and ABX Free 18-64 YRS Unknown Completed [facility] Influenza Virus Vaccine Unknown Completed [facility] Influenza Virus Vaccine Quad .5 mL IM 6+ MO (FLUZONE/FLULAVAL/F LUARIX) Unknown Completed [facility] TDAP (ADACEL) VACCINE Unknown Completed [facility] Influenza Virus Vaccine Recomb Quad IM, Preserv and ABX Free 18-64 YRS Unknown Completed [facility] Influenza Virus Vaccine Unknown Completed [facility] Influenza Virus Vaccine Quad .5 mL IM 6+ MO (FLUZONE/FLULAVAL/F LUARIX) Unknown Completed [facility] TDAP (ADACEL) VACCINE Unknown Completed [facility] Influenza Virus Vaccine Recomb Quad IM, Preserv and ABX Free 18-64 YRS Unknown Completed [facility] Influenza Virus Vaccine Unknown Completed [facility] Influenza Virus Vaccine Quad .5 mL IM 6+ MO (FLUZONE/FLULAVAL/F LUARIX) Unknown Completed [facility] TDAP (ADACEL) VACCINE Unknown Completed [facility] Influenza Virus Vaccine Recomb Quad IM, Preserv and ABX Free 18-64 YRS Unknown Completed [facility] Influenza Virus Vaccine Unknown Completed [facility] Influenza Virus Vaccine Quad .5 mL IM 6+ MO (FLUZONE/FLULAVAL/F LUARIX) Unknown Completed [facility] TDAP (ADACEL) VACCINE Unknown Completed [facility] Influenza Virus Vaccine Recomb Quad IM, Preserv and ABX Free 18-64 YRS Unknown Completed [facility] Influenza Virus Vaccine Unknown Completed [facility] Influenza Virus Vaccine Quad .5 mL IM 6+ MO (FLUZONE/FLULAVAL/F LUARIX) Unknown Completed [facility] TDAP (ADACEL) VACCINE Unknown Completed [facility] Influenza Virus Vaccine Recomb Quad IM, Preserv and ABX Free 18-64 YRS Unknown Completed [facility] Influenza Virus Vaccine Unknown Completed [facility] Influenza Virus Vaccine Quad .5 mL IM 6+ MO (FLUZONE/FLULAVAL/F LUARIX) Unknown Completed [facility] TDAP (ADACEL) VACCINE Unknown Completed [facility] Influenza Virus Vaccine Recomb Quad IM, Preserv and ABX Free 18-64 YRS Unknown Completed [facility] Influenza Virus Vaccine Unknown Completed [facility] Influenza Virus Vaccine Quad .5 mL IM 6+ MO (FLUZONE/FLULAVAL/F LUARIX) Unknown Completed [facility] TDAP (ADACEL) VACCINE Unknown Completed [facility] Influenza Virus Vaccine Recomb Quad IM, Preserv and ABX Free 18-64 YRS Unknown Completed [facility] Influenza Virus Vaccine Unknown Completed [facility] Influenza Virus Vaccine Quad .5 mL IM 6+ MO (FLUZONE/FLULAVAL/F LUARIX) Unknown Completed [facility] TDAP (ADACEL) VACCINE Unknown Completed [facility] Influenza Virus Vaccine Recomb Quad IM, Preserv and ABX Free 18-64 YRS Unknown Completed [facility] Influenza Virus Vaccine Unknown Completed [facility] Influenza Virus Vaccine Quad .5 mL IM 6+ MO (FLUZONE/FLULAVAL/F LUARIX) Unknown Completed [facility] TDAP (ADACEL) VACCINE Unknown Completed [facility] Influenza Virus Vaccine Recomb Quad IM, Preserv and ABX Free 18-64 YRS Unknown Completed [facility] Influenza Virus Vaccine Unknown Completed [facility] Influenza Virus Vaccine Quad .5 mL IM 6+ MO (FLUZONE/FLULAVAL/F LUARIX) Unknown Completed [facility] TDAP (ADACEL) VACCINE Unknown Completed [facility] Influenza Virus Vaccine Recomb Quad IM, Preserv and ABX Free 18-64 YRS Unknown Completed [facility] Influenza Virus Vaccine Unknown Completed [facility] Influenza Virus Vaccine Quad .5 mL IM 6+ MO (FLUZONE/FLULAVAL/F LUARIX) Unknown Completed [facility] TDAP (ADACEL) VACCINE Unknown Completed [facility] Influenza Virus Vaccine Recomb Quad IM, Preserv and ABX Free 18-64 YRS Unknown Completed [facility] Influenza Virus Vaccine Unknown Completed [facility] Influenza Virus Vaccine Quad .5 mL IM 6+ MO (FLUZONE/FLULAVAL/F LUARIX) Unknown Completed [facility] TDAP (ADACEL) VACCINE Unknown Completed [facility] Influenza Virus Vaccine Recomb Quad IM, Preserv and ABX Free 18-64 YRS Unknown Completed [facility] Influenza Virus Vaccine Unknown Completed [facility] Influenza Virus Vaccine Quad .5 mL IM 6+ MO (FLUZONE/FLULAVAL/F LUARIX) Unknown Completed [facility] TDAP (ADACEL) VACCINE Unknown Completed [facility] Influenza Virus Vaccine Recomb Quad IM, Preserv and ABX Free 18-64 YRS Unknown Completed [facility] Influenza Virus Vaccine Unknown Completed [facility] Influenza Virus Vaccine Quad .5 mL IM 6+ MO (FLUZONE/FLULAVAL/F LUARIX) Unknown Completed [facility] TDAP (ADACEL) VACCINE Unknown Completed [facility] Influenza Virus Vaccine Recomb Quad IM, Preserv and ABX Free 18-64 YRS Unknown Completed [facility] Influenza Virus Vaccine Unknown Completed [facility] Influenza Virus Vaccine Quad .5 mL IM 6+ MO (FLUZONE/FLULAVAL/F LUARIX) Unknown Completed [facility] TDAP (ADACEL) VACCINE Unknown Completed [facility] Influenza Virus Vaccine Recomb Quad IM, Preserv and ABX Free 18-64 YRS Unknown Completed [facility] Influenza Virus Vaccine Unknown Completed [facility] Influenza Virus Vaccine Quad .5 mL IM 6+ MO (FLUZONE/FLULAVAL/F LUARIX) Unknown Completed [facility] TDAP (ADACEL) VACCINE Unknown Completed [facility] Influenza Virus Vaccine Recomb Quad IM, Preserv and ABX Free 18-64 YRS Unknown Completed [facility] Influenza Virus Vaccine Unknown Completed [facility] Influenza Virus Vaccine Quad .5 mL IM 6+ MO (FLUZONE/FLULAVAL/F LUARIX) Unknown Completed [facility] TDAP (ADACEL) VACCINE Unknown Completed [facility] Influenza Virus Vaccine Recomb Quad IM, Preserv and ABX Free 18-64 YRS Unknown Completed [facility] Influenza Virus Vaccine Unknown Completed [facility] Influenza Virus Vaccine Quad .5 mL IM 6+ MO (FLUZONE/FLULAVAL/F LUARIX) Unknown Completed [facility] TDAP (ADACEL) VACCINE Unknown Completed [facility] Influenza Virus Vaccine Recomb Quad IM, Preserv and ABX Free 18-64 YRS Unknown Completed [facility] Influenza Virus Vaccine Unknown Completed [facility] Influenza Virus Vaccine Quad .5 mL IM 6+ MO (FLUZONE/FLULAVAL/F LUARIX) Unknown Completed [facility] TDAP (ADACEL) VACCINE Unknown Completed [facility] Influenza Virus Vaccine Quad .5 mL IM 6+ MO (FLUZONE/FLULAVAL/F LUARIX) Unknown Completed [facility] TDAP (ADACEL) VACCINE Unknown Completed [facility] Influenza Virus Vaccine Quad .5 mL IM 6+ MO (FLUZONE/FLULAVAL/F LUARIX) Unknown Completed [facility] TDAP (ADACEL) VACCINE Unknown Completed [facility] Influenza Virus Vaccine Quad .5 mL IM 6+ MO (FLUZONE/FLULAVAL/F LUARIX) Unknown Completed [facility] TDAP (ADACEL) VACCINE Unknown Completed [facility] Influenza Virus Vaccine Quad .5 mL IM 6+ MO (FLUZONE/FLULAVAL/F LUARIX) Unknown Completed [facility] TDAP (ADACEL) VACCINE Unknown Completed [facility] Influenza Virus Vaccine Quad .5 mL IM 6+ MO (FLUZONE/FLULAVAL/F LUARIX) Unknown Completed [facility] TDAP (ADACEL) VACCINE Unknown Completed [facility] Influenza Virus Vaccine Quad .5 mL IM 6+ MO (FLUZONE/FLULAVAL/F LUARIX) Unknown Completed [facility] TDAP (ADACEL) VACCINE Unknown Completed [facility] Influenza Virus Vaccine Quad .5 mL IM 6+ MO (FLUZONE/FLULAVAL/F LUARIX) Unknown Completed [facility] TDAP (ADACEL) VACCINE Unknown Completed [facility] Influenza Virus Vaccine Quad .5 mL IM 6+ MO (FLUZONE/FLULAVAL/F LUARIX) Unknown Completed [facility] TDAP (ADACEL) VACCINE Unknown Completed [facility] Influenza Virus Vaccine Quad .5 mL IM 6+ MO (FLUZONE/FLULAVAL/F LUARIX) Unknown Completed [facility] TDAP (ADACEL) VACCINE Unknown Completed [facility] Influenza Virus Vaccine Recomb Quad IM, Preserv and ABX Free 18-64 YRS Unknown Completed [facility] Influenza Virus Vaccine Unknown Completed [facility] Influenza Virus Vaccine Unknown Completed [facility] Influenza Virus Vaccine Quad IM, Preserv and ABX Free 6 MO-64 YRS (FLUCELVAX) Unknown Completed [facility] Influenza Virus Vaccine Quad .5 mL IM 6+ MO (FLUZONE/FLULAVAL/F LUARIX) Unknown Completed [facility] Influenza Virus Vaccine Quad .5 mL IM 6+ MO (FLUZONE/FLULAVAL/F LUARIX) Unknown Completed [facility] Influenza Virus Vaccine Quad .5 mL IM 6+ MO (FLUZONE/FLULAVAL/F LUARIX) Unknown Completed [facility] TDAP (ADACEL) VACCINE Unknown Completed [facility] Influenza Virus Vaccine Recomb Quad IM, Preserv and ABX Free 18-64 YRS Unknown Completed [facility] Influenza Virus Vaccine Unknown Completed [facility] Influenza Virus Vaccine Unknown Completed [facility] Influenza Virus Vaccine Quad IM, Preserv and ABX Free 6 MO-64 YRS (FLUCELVAX) Unknown Completed [facility] Influenza Virus Vaccine Quad .5 mL IM 6+ MO (FLUZONE/FLULAVAL/F LUARIX) Unknown Completed [facility] Influenza Virus Vaccine Quad .5 mL IM 6+ MO (FLUZONE/FLULAVAL/F LUARIX) Unknown Completed [facility] Vital Signs Vital Name Observation Time Observation Value Comments S ource Systolic blood pressure 2023-05-19 17:24:00 129 mm[Hg] [facility] Diastolic blood pressure 2023-05-19 17:24:00 83 mm[Hg] [facility] Heart rate 2023-05-19 17:24:00 77 /min [facility] Respiratory rate 2023-05-19 17:24:00 15 /min [facility] Oxygen saturation in Arterial blood by Pulse oximetry 2023-05-19 17:24:00 100 /min [facility] Body temperature 2023-05-19 14:50:00 37.28 Irene [facility] Body height 2023-05-19 14:50:[address] [facility] Body weight 2023-05-19 14:50:[address] [facility] BMI 2023-05-19 14:50:00 24.56 kg/m2 [facility] Systolic blood pressure 2023-01-15 16:56:00 132 mm[Hg] [facility] Diastolic blood pressure 2023-01-15 16:56:00 91 mm[Hg] [facility] Heart rate 2023-01-15 16:56:00 67 /min [facility] Body temperature 2023-01-15 16:56:00 36.78 Irene [facility] Respiratory rate 2023-01-15 16:56:00 20 /min [facility] Oxygen saturation in Arterial blood by Pulse oximetry 2023-01-15 16:56:00 100 /min [facility] Body height 2023-01-12 09:05:00 154.9 cm [facility] Body weight 2023-01-12 09:05:00 58.968 kg [facility] BMI 2023-01-12 09:05:00 24.56 kg/m2 [facility] Systolic blood pressure 2022-11-21 21:40:00 122 mm[Hg] [facility] Diastolic blood pressure 2022-11-21 21:40:00 90 mm[Hg] [facility] Heart rate 2022-11-21 21:40:00 92 /min [facility] Respiratory rate 2022-11-21 21:40:00 16 /min [facility] Oxygen saturation in Arterial blood by Pulse oximetry 2022-11-21 21:40:00 99 /min [facility] Body temperature 2022-11-21 18:07:00 37.28 Irene [facility] Body weight 2022-11-21 18:07:[address] [facility] BMI 2022-11-21 18:07:00 28.34 kg/m2 [facility] Systolic blood pressure 2022-09-05 17:22:00 139 mm[Hg] [facility] Diastolic blood pressure 2022-09-05 17:22:00 91 mm[Hg] [facility] Heart rate 2022-09-05 17:22:00 120 /min [facility] Respiratory rate 2022-09-05 17:22:00 18 /min [facility] Oxygen saturation in Arterial blood by Pulse oximetry 2022-09-05 17:22:00 99 /min [facility] Body temperature 2022-09-05 13:43:00 37.11 [facility] Body weight 2022-09-05 13:43:00 68.04 kg [facility] BMI 2022-09-05 13:43:00 28.34 kg/m2 [facility] Systolic blood pressure 2022-08-01 00:49:00 138 mm[Hg] [facility] Diastolic blood pressure 2022-08-01 00:49:00 104 mm[Hg] [facility] Heart rate 2022-08-01 00:49:00 108 /min [facility] Respiratory rate 2022-08-01 00:49:00 18 /min [facility] Oxygen saturation in Arterial blood by Pulse oximetry 2022-08-01 00:49:00 99 /min [facility] Body temperature 2022-07-31 22:52:00 37.11 [facility] Body height 2022-07-31 22:52:00 154.9 cm [facility] Body weight 2022-07-31 22:52:00 68.04 kg [facility] BMI 2022-07-31 22:52:00 28.34 kg/m2 [facility] Systolic blood pressure 2022-07-15 15:32:00 130 mm[Hg] [facility] Diastolic blood pressure 2022-07-15 15:32:00 90 mm[Hg] [facility] Heart rate 2022-07-15 15:31:00 81 /min [facility] Body temperature 2022-07-15 15:31:00 36.94 Irene [facility] Respiratory rate 2022-07-15 15:31:00 16 /min [facility] Body weight 2022-07-15 15:31:00 68.493 kg [facility] BMI 2022-07-15 15:31:00 28.53 kg/m2 [facility] Oxygen saturation in Arterial blood by Pulse oximetry 2022-07-15 15:31:00 99 /min [facility] Systolic blood pressure 2022-06-23 15:26:00 111 mm[Hg] [facility] Diastolic blood pressure 2022-06-23 15:26:00 75 mm[Hg] [facility] Heart rate 2022-06-23 15:26:00 108 /min [facility] Body temperature 2022-06-23 15:26:00 36.83 Irene [facility] Respiratory rate 2022-06-23 15:26:00 18 /min [facility] Body height 2022-06-23 15:26:00 154.9 cm [facility] Body weight 2022-06-23 15:26:00 71.385 kg [facility] BMI 2022-06-23 15:26:00 29.74 kg/m2 [facility] Oxygen saturation in Arterial blood by Pulse oximetry 2022-06-23 15:26:00 99 /min [facility] Systolic blood pressure 2022-05-05 22:05:00 126 mm[Hg] [facility] Diastolic blood pressure 2022-05-05 22:05:00 75 mm[Hg] [facility] Heart rate 2022-05-05 22:05:00 99 [facility] Respiratory rate 2022-05-05 22:05:00 16 /min [facility] Oxygen saturation in Arterial blood by Pulse oximetry 2022-05-05 22:05:00 99 /min [facility] Body temperature 2022-05-05 18:24:00 37.11 Irene [facility] Body height 2022-05-05 18:24:00 154.9 cm [facility] Body weight 2022-05-05 18:24:[address] [facility] BMI 2022-05-05 18:24:00 22.67 kg/m2 [facility] Systolic blood pressure 2022-04-26 14:28:00 135 mm[Hg] [facility] Diastolic blood pressure 2022-04-26 14:28:00 95 mm[Hg] [facility] Heart rate 2022-04-26 14:28:00 93 /min [facility] Body temperature 2022-04-26 14:28:00 36.89 Irene [facility] Respiratory rate 2022-04-26 14:28:00 18 /min [facility] Body height 2022-04-26 14:28:00 154.9 cm [facility] Body weight 2022-04-26 14:28:00 54.432 kg [facility] BMI 2022-04-26 14:28:00 22.67 kg/m2 [facility] Oxygen saturation in Arterial blood by Pulse oximetry 2022-04-26 14:28:00 100 /min [facility] Systolic blood pressure 2022-04-26 00:21:00 151 mm[Hg] [facility] Diastolic blood pressure 2022-04-26 00:21:00 98 mm[Hg] [facility] Heart rate 2022-04-26 00:21:00 98 /min [facility] Body temperature 2022-04-26 00:21:00 36.72 Irene [facility] Respiratory rate 2022-04-26 00:21:00 18 /min [facility] Body height 2022-04-26 00:21:00 154.9 cm [facility] Body weight 2022-04-26 00:21:00 54.432 kg [facility] BMI 2022-04-26 00:21:00 22.67 kg/m2 [facility] Oxygen saturation in Arterial blood by Pulse oximetry 2022-04-26 00:21:00 100 /min [facility] Systolic blood pressure 2022-04-09 14:39:00 122 mm[Hg] [facility] Diastolic blood pressure 2022-04-09 14:39:00 84 mm[Hg] [facility] Heart rate 2022-04-09 14:39:00 96 /[facility] height 2022-04-09 14:39:00 154.9 cm [facility] Body weight 2022-04-09 14:39:00 60.328 kg [facility] BMI 2022-04-09 14:39:00 25.13 kg/m2 [facility] Oxygen saturation in Arterial blood by Pulse oximetry 2022-04-09 14:39:00 98 /min [facility] Systolic blood pressure 2022-04-07 22:43:36 131 mm[Hg] [facility] Diastolic blood pressure 2022-04-07 22:43:36 83 mm[Hg] [facility] Heart rate 2022-04-07 22:43:36 113 /min [facility] Respiratory rate 2022-04-07 22:43:36 18 /min [facility] Oxygen saturation in Arterial blood by Pulse oximetry 2022-04-07 22:43:36 97 /min [facility] Body temperature 2022-04-07 19:41:00 37.17 Irene [facility] Body height 2022-04-07 19:41:00 154.9 cm [facility] Body weight 2022-04-07 19:41:00 60.328 kg [facility] BMI 2022-04-07 19:41:00 25.13 kg/m2 [facility] Systolic blood pressure 2022-03-24 19:00:00 125 mm[Hg] [facility] Diastolic blood pressure 2022-03-24 19:00:00 86 mm[Hg] [facility] Heart rate 2022-03-24 19:00:00 93 /min [facility] Respiratory rate 2022-03-24 19:00:00 17 /min [facility] Oxygen saturation in Arterial blood by Pulse oximetry 2022-03-24 19:00:00 97 /min [facility] Body temperature 2022-03-24 13:33:00 36.78 Irene [facility] Systolic blood pressure 2022-03-15 19:23:00 128 mm[Hg] [facility] Diastolic blood pressure 2022-03-15 19:23:00 89 mm[Hg] [facility] Heart rate 2022-03-15 19:23:00 104 /min [facility] Body weight 2022-03-15 19:23:00 60.328 kg [facility] BMI 2022-03-15 19:23:00 25.13 kg/m2 [facility] Oxygen saturation in Arterial blood by Pulse oximetry 2022-03-15 19:23:00 98 /min [facility] Systolic blood pressure 2022-03-15 15:02:00 115 mm[Hg] [facility] Diastolic blood pressure 2022-03-15 15:02:00 70 mm[Hg] [facility] Heart rate 2022-03-15 15:02:00 85 /min [facility] Respiratory rate 2022-03-15 15:02:00 20 /min [facility] Oxygen saturation in Arterial blood by Pulse oximetry 2022-03-15 15:02:00 99 /min [facility] Body temperature 2022-03-15 13:38:00 36.94 Irene [facility] Body height 2022-03-15 13:38:00 154.9 cm [facility] Body weight 2022-03-15 13:38:00 54.432 kg [facility] BMI 2022-03-15 13:38:00 22.67 kg/m2 [facility] Systolic blood pressure 2022-03-11 16:30:00 124 mm[Hg] [facility] Diastolic blood pressure 2022-03-11 16:30:00 88 mm[Hg] [facility] Heart rate 2022-03-11 16:30:00 93 /[facility] Body temperature 2022-03-11 16:30:00 36.67 Irene [facility] Respiratory rate 2022-03-11 16:30:00 14 /min [facility] Oxygen saturation in Arterial blood by Pulse oximetry 2022-03-11 16:30:00 100 /min [facility] Body height 2022-03-11 14:19:00 154.9 cm [facility] Body weight 2022-03-11 14:19:[address] [facility] BMI 2022-03-11 14:19:00 24.56 kg/m2 [facility] Systolic blood pressure 2022-02-27 14:14:00 140 mm[Hg] [facility] Diastolic blood pressure 2022-02-27 14:14:00 90 mm[Hg] [facility] Heart rate 2022-02-27 14:14:00 103 /min [facility] Body height 2022-02-27 14:14:[address] [facility] Body weight 2022-02-27 14:14:00 59.194 kg [facility] BMI 2022-02-27 14:14:00 24.66 kg/m2 [facility] Oxygen saturation in Arterial blood by Pulse oximetry 2022-02-27 14:14:00 100 /min [facility] Systolic blood pressure 2022-02-27 13:19:00 131 mm[Hg] [facility] Diastolic blood pressure 2022-02-27 13:19:00 86 mm[Hg] [facility] Heart rate 2022-02-27 13:19:00 102 /min [facility] Body temperature 2022-02-27 13:19:00 36.33 Irene [facility] Body height 2022-02-27 13:19:00 154.9 cm [facility] Body weight 2022-02-27 13:19:00 58.968 kg [facility] BMI 2022-02-27 13:19:00 24.56 [facility]terial blood by Pulse oximetry 2022-02-27 13:19:00 99 /min [facility] Systolic blood pressure 2022-02-21 08:06:00 135 mm[Hg] [facility] Diastolic blood pressure 2022-02-21 08:06:00 97 mm[Hg] [facility] Heart rate 2022-02-21 08:06:00 98 /min [facility] Respiratory rate 2022-02-21 08:06:00 16 /min [facility] Oxygen saturation in Arterial blood by Pulse oximetry 2022-02-21 08:06:00 97 /min [facility] Body temperature 2022-02-21 06:16:00 36.94 Irene [facility] Body height 2022-02-21 06:16:00 154.9 cm [facility] Body weight 2022-02-21 06:16:00 60.963 kg [facility] BMI 2022-02-21 06:16:00 25.39 kg/m2 [facility] Systolic blood pressure 2022 20:08:00 136 mm[Hg] [facility] Diastolic blood pressure 2022 20:08:00 96 mm[Hg] [facility] Heart rate 2022 20:08:00 100 /min Un[facility] Respiratory rate 2022 20:08:00 20 /min [facility] Oxygen saturation in Arterial blood by Pulse oximetry 2022 20:08:00 98 /min [facility] Body temperature 2022 16:56:00 37.06 Irene [facility] Body weight 2022 16:56:00 54.432 kg [facility] BMI 2022 16:56:00 22.67 kg/m2 [facility] Systolic blood pressure 2022-02-05 14:31:00 128 mm[Hg] [facility] Diastolic blood pressure 2022-02-05 14:31:00 84 mm[Hg] [facility] Heart rate 2022-02-05 14:31:00 86 /min [facility] Body temperature 2022-02-05 14:31:00 37.89 [facility] Respiratory rate 2022-02-05 14:31:00 18 /min [facility] Body height 2022-02-05 14:31:00 154.9 cm [facility] Body weight 2022-02-05 14:31:00 54.432 kg [facility] BMI 2022-02-05 14:31:00 22.67 kg/m2 [facility] Oxygen saturation in Arterial blood by Pulse oximetry 2022-02-05 14:31:00 98 /min [facility] Systolic blood pressure 2022-01-18 14:50:00 144 mm[Hg] [facility] Diastolic blood pressure 2022-01-18 14:50:00 92 mm[Hg] [facility] Heart rate 2022-01-18 14:50:00 94 /min [facility] Respiratory rate 2022-01-18 14:50:00 20 /min [facility] Oxygen saturation in Arterial blood by Pulse oximetry 2022-01-18 14:50:00 99 /min [facility] Body weight 2022-01-18 10:18:00 54.432 kg [facility] BMI 2022-01-18 10:18:00 22.67 kg/m2 [facility] Body temperature 2022-01-18 10:15:00 36.72 [facility] Systolic blood pressure 2022-01-15 15:48:26 125 mm[Hg] [facility] Diastolic blood pressure 2022-01-15 15:48:26 85 mm[Hg] [facility] Heart rate 2022-01-15 15:48:26 95 /min [facility] Respiratory rate 2022-01-15 15:48:26 18 /min [facility] Oxygen saturation in Arterial blood by Pulse oximetry 2022-01-15 15:48:26 98 /min [facility] Body temperature 2022-01-15 13:32:00 37.11 [facility] Body height 2022-01-15 13:32:00 154.9 cm [facility] Body weight 2022-01-15 13:32:00 54.432 kg [facility] BMI 2022-01-15 13:32:00 22.67 kg/m2 [facility] Systolic blood pressure 2022-01-09 00:37:11 127 mm[Hg] [facility] Diastolic blood pressure 2022-01-09 00:37:11 90 mm[Hg] [facility] Heart rate 2022-01-09 00:37:11 94 /min [facility] Body temperature 2022-01-09 00:37:11 37.11 Irene [facility] Respiratory rate 2022-01-09 00:37:11 16 /min [facility] Oxygen saturation in Arterial blood by Pulse oximetry 2022-01-09 00:37:11 97 /min [facility] Body height 2022-01-08 23:03:00 154.9 cm [facility] Body weight 2022-01-08 23:03:00 58.06 kg [facility] BMI 2022-01-08 23:03:00 24.19 kg/m2 [facility] Systolic blood pressure 2021-12-12 18:00:00 126 mm[Hg] [facility] Diastolic blood pressure 2021-12-12 18:00:00 87 mm[Hg] [facility] Heart rate 2021-12-12 18:00:00 86 /min [facility] Body temperature 2021-12-12 18:00:00 36.89 Irene [facility] Respiratory rate 2021-12-12 18:00:00 18 /min [facility] Body height 2021-12-12 18:00:00 154.9 cm [facility] Body weight 2021-12-12 18:00:00 57.153 kg [facility] BMI 2021-12-12 18:00:00 23.81 kg/m2 [facility] Systolic blood pressure 2023-01-14 16:32:00 138 mm[Hg] [facility] Diastolic blood pressure 2023-01-14 16:32:00 84 mm[Hg] [facility] Heart rate 2023-01-14 16:32:00 67 /min [facility] Body temperature 2023-01-14 16:32:00 36.5 Irene [facility] Respiratory rate 2023-01-14 16:32:00 16 /min [facility] Oxygen saturation in Arterial blood by Pulse oximetry 2023-01-14 16:32:00 99 /min [place] Body height 2023-01-12 09:05:00 154.9 cm [facility] Body weight 2023-01-12 09:05:00 58.968 kg [facility] BMI 2023-01-12 09:05:00 24.56 kg/m2 [facility] Procedures Procedure Date / Time Performed Performing Clinician Source COMP. METABOLIC PANEL (44572) 2023-05-19 17:22:00 Tod Sellers [facility] CT ABDOMEN PELVIS W CONTRAST 2023-05-19 15:59:54 Tod Sellers [facility] LIPASE 2023-05-19 15:43:00 Tod Sellers Un [facility] CBC WITH DIFF 2023-05-19 15:43:00 [facility] 2023-05-19 15:32:00 Tod Sellers Un [facility] POCT TEST 2023-05-19 15:31:00 Anna Marie Sellers [facility] CONSENT/REFUSAL FOR DIAGNOSIS AND TREATMENT 2023-05-19 14:37:15 Doctor Unassigned, [place] [facility] PHOSPHORUS 2023-01-15 08:15:00 Benita Rockwell Un [facility] MAGNESIUM 2023-01-15 08:15:00 Benita Rockwell Un [facility] BASIC METABOLIC PANEL (NA, K, CL, CO2, GLUCOSE, BUN, CREATININE, CA) 2023-01-15 08:15:00 Benita Rockwell [facility] CBC WITH DIFF 2023-01-15 08:15:[address] [facility] PROTHROMBIN TIME / INR 2023-01-15 08:15:00 Luis Rockwell [facility] MAGNESIUM 2023-01-14 10:14:00 Benita Rockwell Un [facility] PHOSPHORUS 2023-01-14 10:14:00 Benita Rockwell Un [facility] BASIC METABOLIC PANEL (NA, K, CL, CO2, GLUCOSE, BUN, CREATININE, CA) 2023-01-14 10:14:00 Benita Rockwell [facility] CBC WITH DIFF 2023-01-14 10:14:[address] [facility] PHOSPHORUS 2023-01-14 10:14:00 Benita Rockwell Un [facility] MAGNESIUM 2023-01-14 10:14:00 Benita Rockwell Un [facility] BASIC METABOLIC PANEL (NA, K, CL, CO2, GLUCOSE, BUN, CREATININE, CA) 2023-01-14 10:14:00 Benita Rockwell [facility] CBC WITH DIFF 2023-01-14 10:14:[address] [facility] CBC WITH DIFF 2023-01-13 10:45:00 [facility]OLIC [facility] (NA, K, CL, CO2, GLUCOSE, BUN, CREATININE, CA) 2023-01-13 10:45:00 Vaishnavi [facility] MAGNESIUM 2023-01-13 10:45:00 Vaishnavi, [facility] PHOSPHORUS 2023-01-13 10:45:00 Vaishnavi [facility] HEPATIC FUNCTION PANEL ([id number]) (ALB,T.PRO,BILI T,BU/BC,ALT,AST,ALK PHOS) 2023-01-13 10:45:00 Vaishnavi [facility] PHOSPHORUS 2023-01-13 10:45:00 Vaishnavi [facility] MAGNESIUM 2023-01-13 10:45:00 Vaishnavi, [facility] HEPATIC FUNCTION PANEL ([id number]) (ALB,T.PRO,BILI T,BU/BC,ALT,AST,ALK PHOS) 2023-01-13 10:45:00 Vaishnavi, [facility] BASIC METABOLIC PANEL (NA, K, CL, CO2, GLUCOSE, BUN, CREATININE, CA) 2023-01-13 10:45:00 Vaishnavi [facility] CBC WITH DIFF 2023-01-13 10:45:00 VaishnaviRodolfo dailey [facility] GLUCOSE BODY FLUID 2023-01-12 20:44:00 VaishnaviRodolfo [facility] BODY FLUID MANUAL DIFF 2023-01-12 20:44:00 VaishnaviClayton dailey [facility] T.PROTEIN BODY FLUID 2023-01-12 20:44:00 Vaishnavi [facility] ASPIRATE OR ABSCESS CULTURE(AEROBIC/ANAEROBIC ) 2023-01-12 20:44:00 Vaishnavi, [facility] TOTAL BODY FLUID 2023-01-12 20:44:00 Vaishnavi [facility] GLUCOSE BODY FLUID 2023-01-12 20:44:00 VaishnaviRodolfo dailey [facility] T.PROTEIN BODY FLUID 2023-01-12 20:44:00 Vaishnavi [facility] BODY FLUID DIRECT COUNT 2023-01-12 20:44:00 Kaycee Riggins [facility] ASPIRATE OR ABSCESS CULTURE(AEROBIC/ANAEROBIC ) 2023-01-12 20:44:00 Vaishnavi [facility] TOTAL BODY FLUID 2023-01-12 20:44:00 Vaishnavi, [facility] PROTHROMBIN TIME / INR 2023-01-12 08:13:00 VaishnaviClayton wade [facility] PROTHROMBIN TIME / INR 2023-01-12 08:13:00 VaishnaviClayton dailey [facility] COMP. METABOLIC PANEL ([id number]) 2023-01-12 03:49:00 iCera García [facility] COMP. METABOLIC PANEL ([id number]) 2023-01-12 03:49:00 Ciera García [facility] CT ABDOMEN PELVIS W CONTRAST 2023-01-12 03:32:06 Ciera García [facility] CT ABDOMEN PELVIS W CONTRAST 2023-01-12 03:32:06 Ciera García [facility] POCT TEST 2023-01-12 03:02:00 Jessica García [facility] POCT TEST 2023-01-12 03:02:00 Jessica García [facility] URINALYSIS 2023-01-12 02:56:00 Kenneth García [facility] LIPASE 2023-01-12 02:56:00 [facility]A HCG [facility]AY 2023-01-12 02:56:00 Ciera García [facility] CBC WITH DIFF 2023-01-12 02:56:00 [facility] EXTRA TUBE ORANGE 2023-01-12 02:56:00 Aroldo Siddiqui [facility] EXTRA TUBE LAV 2023-01-12 02:56:00 Aroldo Siddiqui [facility] LIPASE 2023-01-12 02:56:00 Kenneth García [facility] TOTAL BETA HCG ASSAY 2023-01-12 02:56:00 [facility] 2023-01-12 02:56:00 Kenneth García [facility] URINALYSIS 2023-01-12 02:56:00 Kenneth García [facility] EXTRA TUBE LAV 2023-01-12 02:56:00 Aroldo Siddiqui [facility] EXTRA TUBE ORANGE 2023-01-12 02:56:00 Aroldo Siddiqui [facility] CONSENT/REFUSAL FOR DIAGNOSIS AND TREATMENT 2023-01-12 01:46:10 Doctor Unassigned, [place] [facility] CONSENT/REFUSAL FOR DIAGNOSIS AND TREATMENT 2023-01-12 01:46:10 Doctor Unassigned, [place] [facility] ASSIGNMENT OF BENEFITS 2022-11-21 19:49:02 Docto r Unassigned, [place] [facility] ASSIGNMENT OF BENEFITS 2022-11-21 19:49:02 Docto r Unassigned, [place] [facility] CONSENT/REFUSAL FOR DIAGNOSIS AND TREATMENT 2022-11-21 18:03:25 Doctor Unassigned, [place] [facility] CONSENT/REFUSAL FOR DIAGNOSIS AND TREATMENT 2022-11-21 18:03:25 Doctor Unassigned, [place] [facility] EMERGENCY SERVICES AGREEMENTS AND AUTHORIZATIONS 2022-11-21 05:01:00 Doctor Unassigned, [place] [facility] CONSENT/REFUSAL FOR DIAGNOSIS AND TREATMENT 2022-09-05 13:42:02 Doctor Unassigned, [place] [facility] LIPASE 2022-07-31 23:13:00 [facility] TEST, SERUM 2022-07-31 23:13:00 Domenico Newell [facility] COMP. METABOLIC PANEL ([id number]) 2022-07-31 23:13[facility]00 [facility] CBC WITH DIFF 2022-07-31 23:13:00 Blane [facility] CONSENT/REFUSAL FOR DIAGNOSIS AND TREATMENT 2022-07-31 22:49:17 Doctor Unassigned, [place] [facility] XR ANKLE 3+ VW RIGHT 2022-07-15 16:00:00 Hi Kaur [facility] XR FOOT 3+ VW RIGHT 2022-07-15 16:00:00 Jenifer Kaur [facility] XR FOOT 3+ VW RIGHT 2022-07-15 16:00:00 Jenifer Kaur [facility] PATIENT FINANCIAL POLICY 2022-07-15 15:25:53 Doctor Unassigned, [place] [facility] POCT MOLECULAR STREP 2022-06-23 16:06:00 Unknown, Attignacio alexander [facility] ASSIGNMENT OF BENEFITS 2022-06-23 15:18:28 Nagito r Unassigned, [place] [facility] COMP. METABOLIC PANEL ([id number]) 2022-05-05 19:14:00 Karon Norton [facility] CBC WITH DIFF 2022-05-05 19:14:[address] [facility] POCT TEST 2022-05-05 19:00:00 Lou Norton [facility] URINALYSIS 2022-05-05 18:58:00 Karon Norton [facility] CT ABDOMEN PELVIS WO CONTRAST 2022-04-26 15:11:00 Zion Bridges [facility] COMP. METABOLIC PANEL ([id number]) 2022-04-26 14:49:00 Zion Bridges [facility] CBC WITH DIFF 2022-04-26 14:49:00 Zion Bridges [facility] URINALYSIS 2022-04-26 14:49:00 [facility] POCT TEST 2022-04-26 14:45:00 Jonn Bridges [facility] CONSENT/REFUSAL FOR DIAGNOSIS AND TREATMENT 2022-04-26 14:22:29 Doctor Unassigned, [place] [facility] POCT TEST 2022-04-26 01:22:00 Jonn Bridges [facility] ASSIGNMENT OF BENEFITS 2022-04-26 00:54:02 Docto r Unassigned, [place] [facility] URINALYSIS 2022-04-26 00:45:00 Zion [facility] CONSENT/REFUSAL FOR DIAGNOSIS AND TREATMENT 2022-04-26 00:16:47 Doctor Unassigned, [place] [facility] BASIC METABOLIC PANEL (NA, K, CL, CO2, GLUCOSE, BUN, CREATININE, CA) 2022-04-07 22:35:00 Olamide Garvin [facility] CBC WITH DIFF 2022-04-07 22:35:00 Olamide Garvin [facility] URINALYSIS 2022-04-07 21:36:00 Olamide Garvin [facility] URINE DRUG (IMMUNOASSAY) - COMPREHENSIVE DRUG SCREEN W/O REFLEX 2022-04-07 21:36:00 Olamide Garvin [facility] CONSENT/REFUSAL FOR DIAGNOSIS AND TREATMENT 2022-04-07 19:29:15 Doctor Unassigned, [place] [facility] POCT TEST 2022-03-24 14:07:00 Kellie Duncan [facility] CONSENT/REFUSAL FOR DIAGNOSIS AND TREATMENT 2022-03-24 13:27:20 Doctor Unassigned, [place] [facility] CT ABDOMEN PELVIS WO CONTRAST 2022-03-15 14:09:04 Anna Gould [facility] URINALYSIS 2022-03-15 13:53:00 [facility] 2022-03-15 13:52:00 Kimberly Gould [facility] CONSENT/REFUSAL FOR DIAGNOSIS AND TREATMENT 2022-03-15 13:37:02 Doctor Unassigned, [place] [facility] POCT TEST 2022-03-11 14:59:00 Redd Viveros [facility] FLU VACC ([id number]), 6 MO-64 YRS, .5ML, IM, QUAD (FLUCELVAX) 2022-02-27 13:34:55 Vijay Martinez [facility] NOTICE OF PRIVACY PRACTICES 2022-02-21 06:06:30 Doctor Unassigned, [place] [facility] CONSENT/REFUSAL FOR DIAGNOSIS AND TREATMENT 2022-02-21 06:03:41 Doctor Unassigned, [place] [facility] XR ANKLE <3 VW RIGHT 2022 17:56:42 Buster Hamilton [facility] CT ABDOMEN PELVIS W CONTRAST 2022 17:44:17 Maggie Hamilton [facility] CT TRAUMA CERVICAL SPINE WO CONTRAST 2022 17:43:49 Maggie Hamilton [facility] POCT TEST 2022 17:27:00 Zoie Hamilton ra [facility] COMP. METABOLIC PANEL ([id number]) 2022 17:17:00 Maggie Hamilton [facility] CBC WITH DIFF 2022 17:17:[address] [facility] CONSENT/REFUSAL FOR DIAGNOSIS AND TREATMENT 2022 16:53:13 Doctor Unassigned, [place] [facility] US GALL BLADDER 2022-01-18 12:31:[address] [facility] US PELVIS COMPLETE WITH TRANSVAGINAL 2022-01-18 12:21:13 Melvin Zhao [facility] CT ABDOMEN PELVIS W CONTRAST 2022-01-18 11:20:50 Melvin Zhao [facility] POCT TEST 2022-01-18 10:57:00 Jayy Kennedy [facility] COVID-19 (ID NOW RAPID TESTING) 2022-01-18 10:57:00 Jayy Kennedy [facility] URINALYSIS 2022-01-18 10:47:00 Jayy Kennedy [facility] LIPASE 2022-01-18 10:29:00 Jayy Kennedy [facility] TEST, SERUM 2022-01-18 10:29:00 Jayy Kennedy [facility] HEPATIC FUNCTION PANEL ([id number]) (ALB,T.PRO,BILI T,BU/BC,ALT,AST,ALK PHOS) 2022-01-18 10:29:00 Jayy Kennedy [facility] BASIC METABOLIC PANEL (NA, K, CL, CO2, GLUCOSE, BUN, CREATININE, CA) 2022-01-18 10:29:00 Jayy Kennedy [facility] CBC WITH DIFF 2022-01-18 10:29:00 Jayy Kennedy [facility] CONSENT/REFUSAL FOR DIAGNOSIS AND TREATMENT 2022-01-18 10:13:31 Doctor Unassigned, [place] [facility] CT HEAD WO CONTRAST 2022-01-15 15:22:29 Maura Samayoa [facility] TEST, SERUM 2022-01-15 14:36:00 Hudson Samayoa [facility] BASIC METABOLIC PANEL (NA, K, CL, CO2, GLUCOSE, BUN, CREATININE, CA) 2022-01-15 14:36:00 Maura Samayoa [facility] CBC WITH DIFF 2022-01-15 14:36:00 Maura Samayoa [facility] CONSENT/REFUSAL FOR DIAGNOSIS AND TREATMENT 2022-01-15 13:28:12 Doctor Unassigned, [place] [facility] XR CERVICAL SPINE 4 VW 2022-01-09 00:29:16 Gabriela, Kassandra [facility] XR LUMBAR SPINE 4 VW 2022-01-09 00:29:16 Gabriela, And res [facility] XR SPINE THORACIC 3 VW 2022-01-09 00:29:16 [facility] 2022-01-08 23:50:00 Humberto Ochoa [facility] CONSENT/REFUSAL FOR DIAGNOSIS AND TREATMENT 2022-01-08 22:51:08 Doctor Unassigned, [place] [facility] GALV ONLY - VAGINAL PATHOGENS BY NUCLEIC ACID TESTING 2021-12-12 18:37:00 Prasanna Vargas [facility] URINE CULTURE 2021-12-12 18:32:00 Prasanna Vargas [facility] POCT TEST 2021-12-12 18:31:00 Prasanna Vargas [facility] POCT URINALYSIS W/O SPECIFIC GRAVITY 2021-12-12 18:31:00 Prasanna [facility]arg[facility] Encounters Start Date/Time End Date/Time Encounter Type Admission Type Attending [facility] Facility Care Department Encounter ID Source 2021-03-14 03:14:31 Emergency [facility] [id number] [facility] 2021-03-13 20:05:20 Emergency [facility] [id number] [facility] 2021-03-13 12:48:28 Emergency [facility] [id number] [facility] 2021-03-13 02:43:51 Emergency [facility] [id number] [facility] 2021-03-13 00:27:09 Emergency [facility] [id number] [facility] 2021-03-12 22:10:36 Emergency [facility] [id number] [facility] 2021-03-12 20:04:05 [place] [facility] [place] [id number] 2021-03-12 15:25:05 Emergency [facility] [id number] [facility] 2021-03-12 11:43:36 Emergency [facility] [id number] [facility] 2021-03-12 07:41:37 Emergency [facility] [id number] [facility] 2021-03-12 05:43:47 Emergency [facility] [id number] [facility] 2021-03-12 03:43:41 Emergency [facility] [id number] [facility] 2021-03-12 01:31:27 Emergency [facility] [id number] [facility] 2021-03-12 00:56:44 Emergency X [facility] ERT [id number] [facility] 2021-03-12 00:56:31 Emergency [facility] [id number] [facility] 2021-03-11 17:47:02 Emergency [facility] [place] [id number] [facility] 2021-03-11 16:27:15 Emergency [facility] [id number] [facility] 2021-03-11 12:00:58 Emergency [facility] [id number] [facility] 2021-03-11 10:33:59 Emergency [facility] [place] [id number] [facility] 2021-03-11 01:36:52 Emergency [facility] [place] [id number] [facility] 2021-03-10 23:35:34 Emergency [facility] [id number] [facility] 2021-03-10 19:06:16 Emergency [facility] [id number] [facility] 2021-03-10 12:39:47 Emergency [facility] [id number] [facility] 2021-03-10 06:54:04 Emergency [facility] [id number] [facility] 2021-03-09 13:25:44 Outpatient P [facility] CHRIS [id number] [facility] 2021-03-09 13:08:01 Outpatient P [facility] CHRIS [id number] [facility] 2021-03-09 12:37:25 Outpatient P [facility] CHRIS [id number] [facility] 2021-03-09 11:51:20 Outpatient P [facility] CHRIS [id number] [facility] 2023-05-19 09:04:00 2023-05-19 12:20:00 Emergency X ANNA MARIE SELLERSZOHRA [facility] ERT [id number] [facility] 2023-05-19 09:04:00 2023-05-19 12:20:00 Emergency AdeAnna Marie dohertyzohra [facility] [id number] [id number] [id number] [facility] 2023-04-05 00:00:00 2023-04-05 00:00:00 Patient Secure Msg Prasanna Vargas [facility] 1..840.114 350.1.13.10 [id number] [id number] [facility] 2023-02-14 12:59:23 2023-02-14 12:59:23 Outpatient [facility] [id number] Willis Miguel Jeffery 2023-02-06 18:19:02 2023-02-06 18:19:02 Outpatient [facility] [id number] Willis Rivera Jeffery 2023-01-30 00:00:00 2023-01-30 00:00:00 Outpatient BILL_Farzana [facility] [id number] [facility] 2023-01-16 00:00:00 2023-01-16 00:00:00 Transition of Care Marlys Odell 1..840.114 350.1.13.10 4.2.7.2.686 [id number] [facility] 2023-01-11 21:06:00 2023-01-15 16:00:00 Inpatient X OLIVER STEELE [facility] DAVID [id number] [facility] 2023-01-11 21:06:00 2023-01-15 16:00:00 Hospital Encounter Artur, Aroldo Karrikaycee, Mirella Steele, [facility] [id number] [id number] 4.2.7.2.686 [id number] [facility] 2023-01-12 00:00:00 2023-01-12 00:00:00 Travel 1.2.840.1 [id number] [id number] 4.2.7.3.698 [id number] [facility] 2023-01-11 00:00:00 2023-01-11 00:00:00 Travel 1.2.840.1 [id number] [id number] 4.2.7.3.698 [id number] [facility] 2022-12-28 00:00:00 2022-12-28 00:00:00 Outpatient ERICKSON_R [facility] [facility] [id number] 2022-12-14 18:37:13 2022-12-14 18:37:13 Outpatient STEFANY MCCALL [id number] Willis Rivera Jeffery 2022-12-13 00:00:00 2022-12-13 00:00:00 Outpatient ERICKSON_R [facility] [id number] 2022-12-12 09:30:00 2022-12-12 09:30:00 Outpatient PRASANNA LOOMIS [facility] [id number] [facility] 2022-11-21 13:08:00 2022-11-21 16:45:00 Emergency X MANJU NEWELL [facility] ERT [id number] [facility] 2022-11-21 13:08:00 2022-11-21 16:45:00 Emergency [place] Christopher 1.2.840.1 54643.1.1 3.104.2.7 .3.142404 .8 [id number] [facility] 2022-11-21 00:00:00 2022-11-21 00:00:00 Travel 1.2.840.1 42180.1.1 3.104.2.7 .3.735770 .8 1.2.840.114 350.1.13.10 4.2.7.3.698 084.8 [id number] [facility] 2022-11-18 10:08:00 2022-11-18 10:08:00 Outpatient [facility] [id number] Willis Gil 2022-11-15 09:40:00 2022-11-15 09:40:00 Outpatient LIAN LABOY CHRISTINE [facility] [id number] [facility] 2022-11-15 00:00:00 2022-11-15 00:00:00 Orders Only Palak Marrufo 1.2.840.1 28750.1.1 3.104.2.7 .3.830284 .8 [id number] [facility] 2022-11-09 15:26:18 2022-11-09 15:26:18 Outpatient [facility] [id number] Willis Miguel Jeffery 2022-11-06 13:00:00 2022-11-06 13:00:00 Outpatient VIJAY ARAUZ [facility] [id number] [facility] 2022-10-29 00:00:00 2022-10-29 00:00:00 Patient Secure Lian Mason 1.2.840.1 47059.1.1 3.104.2.7 .3.681224 .8 [id number] [facility] 2022-10-29 00:00:00 2022-10-29 00:00:00 Patient Secure Prasanna Kang 1.2.840.1 64518.1.1 3.104.2.7 .3.788404 .8 [id number] [facility] 2022-10-03 00:00:00 2022-10-03 00:00:00 Letter (Out) Gurjit Lim [facility] MEDICAL OFFICE BUILDING 1.840.114 350.1.13.10 4.2.7.2.686 [id number] [facility] 2022-10-02 10:00:00 2022-10-02 10:00:00 Outpatient R CELINA FINNEY [facility] [id number] [facility] 2022-10-01 09:40:00 2022-10-01 09:40:00 Outpatient R REJI DÍAZ [facility] [id number] [facility] 2022-09-25 00:00:00 2022-09-25 00:00:00 Telephone Rad Serra [facility] NAL BUILDING 1..840.114 350.1.13.10 4.2.7.2.686 [id number] 059 [id number] [facility] 2022-09-21 09:30:00 2022-09-21 09:30:00 Outpatient R KASSANDRA PUGH [facility] [id number] [facility] 2022-09-21 00:00:00 2022-09-21 00:00:00 [facility] MEDICAL OFFICE BUILDING 1..840.114 350.1.13.10 4.2.7.2.686 [id number] 092 [id number] [facility] 2022-09-21 00:00:00 2022-09-21 00:00:00 [facility] ([facility] 1.2.840.114 350.1.13.10 4.2.7.2.686 [id number] 092 [id number] [facility] 2022-09-21 00:00:00 2022-09-21 00:00:00 [facility] MEDICAL OFFICE BUILDING 1..840.114 350.1.13.10 4.2.7.2.686 [id number] 092 [id number] [facility] 2022-09-14 09:30:00 2022-09-14 09:30:00 [facility] [id number] [facility] 2022-09-12 00:00:00 2022-09-12 00:00:00 [facility] MEDICAL OFFICE [facility] 1.2.840.114 350.1.13.10 4.2.7.2.686 [id number] [id number] [facility] 2022-09-07 11:30:00 2022-09-07 11:30:00 [facility] [id number] [facility] 2022-09-05 08:44:00 2022-09-05 13:15:00 Emergency X KENNEDY WHITLEY [facility] ERT [id number] [facility] 2022-09-05 08:44:00 2022-09-05 13:15:00 Emergency Kennedy Whitley [facility] 1..840.114 350.1.13.10 4.2.7.2.686 [id number] [facility] 2022-09-04 00:00:00 2022-09-04 00:00:00 Telephone Lexy [facility] TOÑO?[facility] MEDICAL OFFICE BUILDING 1..840.114 350.1.13.10 4.2.7.2.686 [id number] 092 [id number] [facility] 2022-09-04 00:00:00 2022-09-04 00:00:00 Patient Secure Msg Rad SerraPilar [facility] BUILDING 1..840.114 350.1.13.10 4.2.7.2.686 [id number] [facility] 2022-08-29 09:00:00 2022-08-29 09:00:00 Outpatient R CELINA FINNEY [facility] [id number] [facility] 2022-08-14 00:00:00 2022-08-14 00:00:00 Patient Secure Msg Doctor Unassigned, [place] [facility] MEDICAL OFFICE BUILDING 1..840.114 350.1.13.10 4.2.7.2.686 [id number] 092 [id number] [facility] 2022-07-31 17:56:00 2022-07-31 20:30:00 Emergency X HANGMANJU CRAIG [facility] ERT [id number] [facility] 2022-07-31 17:56:00 2022-07-31 20:30:00 Emergency [place], Manju [facility] 1..840.114 350.1.13.10 4.2.7.2.686 [id number] 084 [id number] [facility] 2022-07-15 09:46:45 2022-07-15 23:59:00 Outpatient R CARI KAUR [facility] [id number] [facility] 2022-07-15 09:46:45 2022-07-15 23:59:00 Hospital Encounter Cari Kaur [facility] MEDICAL OFFICE BUILDING 1..840.114 350.1.13.10 4.2.7.2.686 [id number] [facility] 2022-07-15 09:46:45 2022-07-15 23:59:00 Hospital Encounter Cari Kaur [facility] MEDICAL OFFICE BUILDING 1.284.114 350.1.13.10 4.2.7.2.686 [id number] [facility] 2022-07-15 09:20:00 2022-07-15 10:29:17 Urgent Care Cari Kaur Unknown, Attending [facility] MEDICAL OFFICE BUILDING 1.114 350.1.13.10 4.2.7.2.686 [id number] [facility] 2022-07-15 00:00:00 2022-07-15 00:00:00 Orders Only Doctor Unassigned, [place] [facility] 1.114 350.1.13.10 4.2.7.2.686 [id number] [facility] 2022-06-23 09:20:00 2022-06-23 10:27:39 Outpatient R PAUL SAMAYOA [facility] [id number] [facility] 2022-06-23 09:20:00 2022-06-23 10:27:39 Urgent Care Paul Samayoa Unknown, Attending [facility] MEDICAL OFFICE BUILDING 1.84.114 350.1.13.10 4.2.7.2.686 [id number] [facility] 2022-06-23 00:00:00 2022-06-23 00:00:00 Orders Only Doctor Unassigned, [place] [facility] 1.2840.114 350.1.13.10 4.2.7.2.686 [id number] [facility] 2022-06-15 09:40:00 2022-06-15 09:40:00 Outpatient R LIAN GREENE [facility] [id number] [facility] 2022-05-29 08:00:00 2022-05-29 08:00:00 Outpatient Farzana PUGH KASSANDRA [facility] [id number] [facility] 2022-05-15 09:20:00 2022-05-15 09:20:00 Outpatient R BENNETT MILLER [facility] [id number] [facility] 2022-05-11 09:30:00 2022-05-11 09:30:00 Outpatient KASSANDRA MCKINLEY [facility] [id number] [facility] 2022-05-05 12:26:00 2022-05-05 16:11:00 Emergency X KARON NORTON [facility] ERT [id number] [facility] 2022-05-05 12:26:00 2022-05-05 16:11:00 Emergency Norton Karon [facility] 1.2.840.114 350.1.13.10 4.2.7.2.686 [id number] [facility] 2022-05-01 00:00:00 2022-05-01 00:00:00 Outpatient PRASANNA LOOMIS [facility] [id number] [facility] 2022-04-26 08:30:00 2022-04-26 09:59:00 Emergency X ZION BRIDGES [facility] ERT [id number] [facility] 2022-04-26 08:30:00 2022-04-26 09:59:00 Emergency Zion Bridges [facility] 1.2.840.114 350.1.13.10 4.2.7.2.686 [id number] [facility] 2022-04-25 18:23:00 2022-04-25 21:55:00 Emergency X KENNEDY WHITLEY [facility] ERT [id number] [facility] 2022-04-25 18:23:00 2022-04-25 21:55:00 Emergency Kennedy Whitley [facility] 1.2.840.114 350.1.13.10 4.2.7.2.686 [id number] [id number] [facility] 2022-04-19 10:00:00 2022-04-19 10:00:00 Outpatient LIAN LABOY [facility] [id number] [facility] 2022-04-12 00:00:00 2022-04-12 00:00:00 [facility] MEDICAL OFFICE BUILDING 1.2.840.114 350.1.13.10 4.2.7.2.686 [id number] [id number] [facility] 2022-04-11 00:00:00 2022-04-11 00:00:00 Telephone YoselinDarrion salmon [facility] TOÑO[facility] MEDICAL OFF[facility] BUILDING 1.2.840.114 350.1.13.10 4.2.7.2.686 [id number] [id number] [facility] 2022-04-10 00:00:00 2022-04-10 00:00:00 Telephone Lexy [facility] TOÑO?[facility] MEDICAL OFFICE BUILDING 1.2.840.114 350.1.13.10 4.2.7.2.686 [id number] [id number] [facility] 2022-04-09 09:30:00 2022-04-09 09:30:00 [facility] OFF[facility] BUILDING 1.2.840.114 350.1.13.10 4.2.7.2.686 [id number] 092 [id number] [facility] 2022-04-09 09:30:00 2022-04-09 09:21:44 Outpatient R PUGHKASSANDRA [facility] [id number] [facility] 2022-04-07 13:41:00 2022-04-07 17:49:00 Emergency X OLAMIDE GARVIN [facility] ERT [id number] [facility] 2022-04-07 13:41:00 2022-04-07 17:49:00 Emergency Olamide Garvin [facility] 1.2.840.114 350.1.13.10 4.2.7.2.686 [id number] 084 [id number] [facility] 2022-04-07 00:00:00 2022-04-07 00:00:00 Patient Secure Msg Doctor Unassigned, [place] [facility] 1..840.114 350.1.13.10 4.2.7.2.686 [id number] 019 [id number] [facility] 2022-04-04 00:00:00 2022-04-04 00:00:00 [facility] MEDICAL OFFICE BUILDING 1.2.840.114 350.1.13.10 4.2.7.2.686 [id number] 092 [id number] [facility] 2022-04-02 10:30:00 2022-04-02 10:30:00 Outpatient Farzana PUGH KASSANDRA [facility] [id number] [facility] 2022-03-28 00:00:00 2022-03-28 00:00:00 Patient Secure Msg Doctor Unassigned, [place] [facility] MEDICAL OFFICE BUILDING 1.2.840.114 350.1.13.10 4.2.7.2.686 [id number] [id number] [facility] 2022-03-24 07:35:00 2022-03-24 13:11:00 Emergency X KELLIE DUNCAN [facility] ERT [id number] [facility] 2022-03-24 07:35:00 2022-03-24 13:11:00 Emergency Kellie Duncan [facility] 1.2.840.114 350.1.13.10 4.2.7.2.686 [id number] [facility] 2022-03-23 10:30:00 2022-03-23 10:30:00 Outpatient KASSANDRA MCKINLEY [facility] [id number] [facility] 2022-03-23 00:00:00 2022-03-23 00:00:00 Telephone Darrion Wyatt [facility] TOÑO?[facility] MEDICAL OFFICE BUILDING 1.2.840.114 350.1.13.10 4.2.7.2.686 [id number] 092 [id number] [facility] 2022-03-22 00:00:00 2022-03-22 00:00:00 Telephone Darrion Wyatt [facility] TOÑO?[facility] MEDICAL OFFICE BUILDING 1.2.840.114 350.1.13.10 4.2.7.2.686 [id number] 092 [id number] [facility] 2022-03-22 00:00:00 2022-03-22 00:00:00 Refill Darrion Wyatt [facility] TOÑO?[facility] MEDICAL OFFICE BUILDING 1.2.840.114 350.1.13.10 4.2.7.2.686 [id number] 092 [id number] [facility] 2022-03-21 00:00:00 2022-03-21 00:00:00 Telephone Yoselin [facility] TOÑO?[facility] MEDICAL OFFICE BUILDING 1.2.840.114 350.1.13.10 4.2.7.2.686 [id number] 092 [id number] [facility] 2022-03-15 14:00:00 2022-03-15 14:36:19 Outpatient REJI COOPER [facility] [id number] [facility] 2022-03-15 14:00:00 2022-03-15 14:36:19 Office Visit Reji Díaz [facility] NAL BUILDING 1.84.114 350.1.13.10 4.2.7.2.686 [id number] [facility] 2022-03-15 08:40:00 2022-03-15 10:47:00 Emergency X ARIELLAFRANDYANNA [facility] ERT [id number] [facility] 2022-03-15 08:40:00 2022-03-15 10:47:00 Emergency Bryanna Anna [facility] 1.840.114 350.1.13.10 4.2.7.2.686 [id number] [id number] [facility] 2022-03-14 10:30:00 2022-03-14 10:30:00 Outpatient PRASANNA LOOMIS [facility] [id number] [facility] 2022-03-11 09:22:00 2022-03-11 12:15:00 Emergency X ANGELICA VIVEROS [facility] ERT [id number] [facility] 2022-03-11 09:22:00 2022-03-11 12:15:00 Emergency Angelica Viveros [facility] 1.840.114 350.1.13.10 4.2.7.2.686 [id number] [id number] [facility] 2022-03-06 08:30:00 2022-03-06 08:30:00 Outpatient KASSANDRA MCKINLEY [facility] [id number] [facility] 2022-03-02 00:00:00 2022-03-02 00:00:00 Telephone Darrion Wyatt [facility] MED[facility] OFF[facility] BUILD[facility] 1..840.114 350.1.13.10 4.2.7.2.686 [id number] 092 [id number] [facility] 2022-02-28 00:00:00 2022-02-28 00:00:00 Patient Secure Msg Doctor Unassigned, [place] [facility] OFF[facility] BUILD[facility] 1.2.840.114 350.1.13.10 4.2.7.2.686 [id number] 092 [id number] [facility] 2022-02-27 09:30:00 2022-02-27 09:49:42 Outpatient R PUGHANASTASIIAKASSANDRA [facility] [id number] [facility] 2022-02-27 09:30:00 2022-02-27 09:49:42 [facility] BUILD[facility] 1.2.840.114 350.1.13.10 4.2.7.2.686 [id number] [id number] [facility] 2022-02-27 08:00:00 2022-02-27 09:12:17 [facility] BU[facility] 1.2.840.114 350.1.13.10 4.2.7.2.686 [id number] [facility] 2022-02-26 11:30:00 2022-02-26 11:30:00 Outpatient R LEXY KASSANDRA [facility] [id number] [facility] 2022-02-21 01:20:00 2022-02-21 03:44:00 Emergency X MAGGIE HAMILTON [facility] ERT [id number] [facility] 2022-02-21 01:20:00 2022-02-21 03:44:00 Emergency Maggie Hamilton [facility] 1.2.840.114 350.1.13.10 4.2.7.2.686 [id number] [id number] [facility] 2022-02-19 00:00:00 2022-02-19 00:00:00 Patient Secure Msg Zamudio, Kendal [facility] MEDICAL OFFICE BUILDING 1.2840.114 350.1.13.10 4.2.7.2.686 [id number] 044 [id number] [facility] 2022-02-19 00:00:00 2022-02-19 00:00:00 Patient Secure Msg Kendal Zamudio 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 [facility] & [facility] 1.2840.114 350.1.13.10 4.2.7.2.686 [id number] [facility] 2022 11:58:00 2022 15:13:00 Emergency X MAGGIE HAMILTON [facility] ERT [id number] [facility] 2022 11:58:00 2022 15:13:00 Emergency Maggie Hamilton [facility] 1.2840.114 350.1.13.10 4.2.7.2.686 [id number] 084 [id number] [facility] 2022-02-09 09:00:00 2022-02-09 09:00:00 Outpatient R CRICKET TAYLOR [facility] [id number] [facility] 2022-02-06 10:00:00 2022-02-06 10:00:00 Outpatient R COTTA, VIJAY [facility] [id number] [facility] 2022-02-05 09:45:00 2022-02-05 10:05:00 Nurse Visit Nurse, Filippo [facility] Ileana Medrano [facility] TOÑO?[facility] MED[facility] OFF[facility] BUILD[facility] 1..840.114 350.1.13.10 4.2.7.2.686 [id number] [facility] 2022-02-05 09:20:00 2022-02-05 09:20:00 Outpatient FLACO KEE [facility] [id number] [facility] 2022-01-26 00:00:00 2022-01-26 00:00:00 Case Management Prasanna [facility]arg[facility] 1.840.114 350.1.13.10 4.2.7.2.686 [id number] [facility] 2022-01-22 11:00:00 2022-01-22 11:00:00 Outpatient VIJAY ARAUZ [facility] [id number] [facility] 2022-01-19 00:00:00 2022-01-19 00:00:00 Patient Secure Msg Doctor Unassigned, [place] [facility] 1.840.114 350.1.13.10 4.2.7.2.686 [id number] [facility] 2022-01-18 05:17:00 2022-01-18 10:25:00 Emergency X BERNARDO LEVY [facility] ERT [id number] [facility] 2022-01-18 05:17:00 2022-01-18 10:25:00 Emergency Jayy Kennedy [facility] 1.840.114 350.1.13.10 4.2.7.2.686 [id number] [facility] 2022-01-15 08:34:00 2022-01-15 10:49:00 Emergency MAURA DALE [facility] ERT [id number] [facility] 2022-01-15 08:34:00 2022-01-15 10:49:00 Emergency Larry Perez Robert Lee [facility] 1.2.840.114 350.1.13.10 4.2.7.2.686 [id number] 084 [id number] [facility] 2022-01-08 18:04:00 2022-01-08 20:09:00 Emergency X HUMBERTO OCHOA [facility] ERT [id number] [facility] 2022-01-08 18:04:00 2022-01-08 20:09:00 Emergency Humberto Ochoa [facility] 1..840.114 350.1.13.10 4.2.7.2.686 [id number] [id number] [facility] 2021-12-12 13:30:00 2021-12-12 13:40:21 Outpatient Farzana CARNES [facility] [id number] [facility] 2021-12-12 13:30:00 2021-12-12 13:40:21 Office Visit Prasanna Vargas [facility] PROFESSIO [facility] 1..840.114 350.1.13.10 4.2.7.2.686 [id number] [facility] 2021-12-12 13:30:00 2021-12-12 13:40:21 Outpatient Farzana CARNES [facility] [id number] [facility] 2021-12-12 13:30:00 2021-12-12 13:40:21 Outpatient Farzana CARNES [facility] [id number] [facility] 2021-12-11 16:15:00 2021-12-11 16:15:00 Outpatient ADE KING [facility] [id number] [facility] 2021-12-05 14:15:00 2021-12-05 14:15:00 Outpatient ROMULO BROWNING [facility] [id number] [facility] 2021-11-28 08:49:00 2021-11-28 11:02:00 Emergency X KARON NORTON [facility] ERT [id number] [facility] 2021-11-28 08:49:00 2021-11-28 11:02:00 Emergency Karon Norton [facility] 1.2.840.114 350.1.13.10 4.2.7.2.686 [id number] [id number] [facility] 2021-11-28 00:00:00 2021-11-28 00:00:00 Patient Secure Msg Cricket Taylor [facility] CHIEF METER READER [facility] & CHILD [facility] 1..840.114 350.1.13.10 4.2.7.2.686 [id number] [facility] 2021-11-24 18:14:00 2021-11-24 21:04:00 Emergency X Kaycee MÉNDEZ [facility] ERT [id number] [facility] 2021-11-24 18:14:00 2021-11-24 21:04:00 Emergency DevKaycee Sharlene [facility] 1..840.114 350.1.13.10 4.2.7.2.686 [id number] [facility] 2021-11-24 00:00:00 2021-11-24 00:00:00 Telephone Cricket Taylor [facility] CHIEF METER READER [facility] 1.2.840.114 350.1.13.10 4.2.7.2.686 [id number] [facility] 2021-11-20 00:00:00 2021-11-20 00:00:00 Patient Secure Msg Kendal Zamudio [facility] MEDICAL OFFICE BUILDING 1.84.114 350.1.13.10 4.2.7.2.686 [id number] [facility] 2021-11-19 00:00:00 2021-11-19 00:00:00 Letter (Out) Leslie Santacruz [facility] 1.2840.114 350.1.13.10 4.2.7.2.686 [id number] [facility] 2021-11-18 10:41:40 2021-11-18 23:59:00 Outpatient R OLIVER [facility] [id number] [facility] 2021-11-18 10:41:40 2021-11-18 23:59:00 Hospital Encounter Oliver, [facility] MEDICAL OFFICE BUILDING 1.84.114 350.1.13.10 4.2.7.2.686 [id number] [facility] 2021-11-18 10:20:00 2021-11-18 10:53:20 Urgent Care Oliver [facility] MEDICAL OFFICE BUILDING 1.284.114 350.1.13.10 4.2.7.2.686 [id number] [facility] 2021-11-09 10:30:00 2021-11-09 10:30:00 Outpatient R CELINA MIXON [facility] [id number] [facility] 2021-10-25 13:20:00 2021-10-25 13:20:00 [facility] MEDICAL OFFICE BUILDING 1.284.114 350.1.13.10 4.2.7.2.686 [id number] [facility] 2021-10-25 13:20:00 2021-10-25 12:47:59 Outpatient Farzana MEDRANO ILEANA [facility] [id number] [facility] 2021-10-25 00:00:00 2021-10-25 00:00:00 Patient Secure Msg Vijay Martinez [facility] MEDICAL OFFICE BUILDING 1.2.840.114 350.1.13.10 4.2.7.2.686 [id number] [facility] 2021-10-25 00:00:00 2021-10-25 00:00:00 Telephone Vijay Martinez [facility] MEDICAL OFFICE BUILDING 1.2.840.114 350.1.13.10 4.2.7.2.686 [id number] [facility] 2021-10-25 00:00:00 2021-10-25 00:00:00 Telephone Provider, Filippo [facility] MEDICAL OFFICE BUILDING 1.2.840.114 350.1.13.10 4.2.7.2.686 [id number] [facility] 2021-10-25 00:00:00 2021-10-25 00:00:00 Telephone Nurse, [facility] MEDICAL OFFICE BUILDING 1.2.840.114 350.1.13.10 4.2.7.2.686 [id number] [facility] 2021-10-24 10:15:00 2021-10-24 10:15:00 Outpatient ROMULO BROWNING [facility] [id number] [facility] 2021-10-24 10:15:00 2021-10-24 10:15:00 Outpatient ROMULO BROWNING [facility] [id number] [facility] 2021-10-11 09:30:00 2021-10-11 09:30:00 Outpatient ROMULO BROWNING [facility] [id number] [facility] 2021-10-10 13:30:00 2021-10-10 13:30:00 Outpatient PRASANNA LOOMIS [facility] [id number] [facility] 2021-10-10 13:30:00 2021-10-10 13:30:00 Outpatient PRASANNA LOOMIS [facility] [id number] [facility] 2021-10-10 13:30:00 2021-10-10 13:30:00 Outpatient PRASANNA LOOMIS [facility] [id number] [facility] 2021-10-10 13:30:00 2021-10-10 13:30:00 Outpatient PRASANNA LOOMIS [facility] [id number] [facility] 2021-10-10 13:30:00 2021-10-10 13:30:00 Outpatient PRASANNA LOOMIS [facility] [id number] [facility] 2021-10-10 13:30:00 2021-10-10 13:30:00 Outpatient PRASANNA LOOMIS [facility] [id number] [facility] 2021-10-10 13:30:00 2021-10-10 13:30:00 Outpatient PRASANNA LOOMIS [facility] [id number] [facility] 2021-10-05 00:00:00 2021-10-05 00:00:00 [facility] MEDICAL OFFICE BUILDING 1.2.840.114 350.1.13.10 4.2.7.2.686 [id number] [facility] 2021-10-05 00:00:00 2021-10-05 00:00:00 Patient [facility] MEDICAL OFFICE BUILDING 1.2.840.114 350.1.13.10 4.2.7.2.686 [id number] [facility] 2021-10-04 00:00:00 2021-10-04 00:00:00 Pre Visit Outreach Melia Rodriguez 1.2.840.114 350.1.13.10 4.2.7.2.686 [id number] [facility] 2021-09-28 13:30:00 2021-09-28 13:45:00 Office Visit Celina Mixon [facility] FLACONitesh MELO 1.2.840.114 350.1.13.10 4.2.7.2.686 [id number] [facility] 2021-09-28 13:30:00 2021-09-28 13:30:00 Outpatient CELINA STONE [facility] [id number] [facility] 2021-09-28 13:30:00 2021-09-28 13:30:00 Outpatient CELINA STONE [facility] [id number] [facility] 2021-09-28 00:00:00 2021-09-28 00:00:00 Patient Secure Msg Celina Mixon Kassandra [facility] 1.2.840.114 350.1.13.10 4.2.7.2.686 [id number] [facility] 2021-09-27 14:00:00 2021-09-27 14:00:00 Outpatient TETO BRANTLEY [facility] [id number] [facility] 2021-09-27 09:30:00 2021-09-27 09:30:00 Outpatient DANIA RICARDO [facility] [id number] [facility] 2021-09-27 09:30:00 2021-09-27 09:30:00 Outpatient DANIA RICARDO [facility] [id number] [facility] 2021-09-27 09:30:00 2021-09-27 09:30:00 Outpatient DANIA RICARDO [facility] [id number] [facility] 2021-09-26 10:45:00 2021-09-26 10:45:00 Outpatient R CRICKET TAYLOR [facility] [id number] [facility] 2021-09-26 10:45:00 2021-09-26 10:45:00 Outpatient R CRICKET TAYLOR [facility] [id number] [facility] 2021-09-26 00:00:00 2021-09-26 00:00:00 Patient Secure Vijay Caraballo [facility] MEDICAL OFFICE BUILDING 1.2.840.114 350.1.13.10 4.2.7.2.686 [id number] [facility] 2021-09-26 00:00:00 2021-09-26 00:00:00 Patient Secure [facility] MEDICAL OFFICE BUILDING 1.2.840.114 350.1.13.10 4.2.7.2.686 [id number] [facility] 2021-09-25 10:20:00 2021-09-25 11:10:42 Urgent Care Noelle Boydtany Ileana Medrano [facility] MEDICAL OFFICE BUILDING 1.2.840.114 350.1.13.10 4.2.7.2.686 [id number] [facility] 2021-09-25 10:20:00 2021-09-25 11:10:42 Outpatient R FLACO BOYD [facility] [id number] [facility] 2021-09-25 10:20:00 2021-09-25 10:20:00 Outpatient R FLACO BOYD [facility] [id number] [facility] 2021-09-25 10:00:00 2021-09-25 10:00:00 Outpatient R PRASANNA VARGAS [facility] [id number] [facility] 2021-09-25 00:00:00 2021-09-25 00:00:00 Telephone Noelle Boydtany [facility] MEDICAL OFFICE BUILDING 1.2840.114 350.1.13.10 4.2.7.2.686 [id number] [facility] 2021-09-25 00:00:00 2021-09-25 00:00:00 Patient Secure Msg VargasPrasanna Jm [facility] NAL BUILDING 1.2840.114 350.1.13.10 4.2.7.2.686 [id number] [facility] 2021-09-25 00:00:00 2021-09-25 00:00:00 Telephone Cricket Taylor [facility] CHIEF [facility] 1.2840.114 350.1.13.10 4.2.7.2.686 [id number] [facility] 2021-09-25 00:00:00 2021-09-25 00:00:00 Telephone Celina Mixon [facility] 1.2840.114 350.1.13.10 4.2.7.2.686 [id number] [facility] 2021-09-15 00:00:00 2021-09-15 00:00:00 Patient Secure Msg Kendal Zamudio [facility] MEDICAL OFFICE BUILDING 1.2840.114 350.1.13.10 4.2.7.2.686 [id number] [id number] [facility] 2021-09-15 00:00:00 2021-09-15 00:00:00 Patient Secure Msg Kendal [facility] MEDICAL OFFICE BUILDING 1.2840.114 350.1.13.10 4.2.7.2.686 [id number] [id number] [facility] 2021-09-15 00:00:00 2021-09-15 00:00:00 Patient Secure Msg Kendal Zamudio [facility] MEDICAL OFFICE BUILDING 1.114 350.1.13.10 4.2.7.2.686 [id number] [id number] [facility] 2021-09-14 00:00:00 2021-09-14 00:00:00 Patient Secure Msg [facility]ijay [facility] MEDICAL OFFICE BUILDING 1.114 350.1.13.10 4.2.7.2.686 [id number] [id number] [facility] 2021-09-14 00:00:00 2021-09-14 00:00:00 Patient Secure Msg Doctor Unassigned, [place] [facility] MEDICAL OFFICE BUILDING 1.114 350.1.13.10 4.2.7.2.686 [id number] [id number] [facility] 2021-09-12 10:30:00 2021-09-12 10:30:00 Outpatient CELINA STONE [facility] [id number] [facility] 2021-09-12 10:30:00 2021-09-12 10:30:00 Outpatient CELINA STONE [facility] [id number] [facility] 2021-09-12 00:00:00 2021-09-12 00:00:00 Patient Secure Msg Daniel Dsouza [facility] 1.114 350.1.13.10 4.2.7.2.686 [id number] [facility] 2021-09-12 00:00:00 2021-09-12 00:00:00 Orders Only Doctor Unassigned, [place] [facility] 1.114 350.1.13.10 4.2.7.2.686 [id number] [facility] 2021-09-12 00:00:00 2021-09-12 00:00:00 Patient Secure Msg [facility]ijay [facility] OFF[facility] BUILDING 1.2840.114 350.1.13.10 4.2.7.2.686 [id number] [id number] [facility] 2021-09-05 00:00:00 2021-09-05 00:00:00 Patient Secure Msg Vijay Martinez [facility] MEDICAL OFFICE BUILDING 1.20.114 350.1.13.10 4.2.7.2.686 [id number] [id number] [facility] 2021-09-05 00:00:00 2021-09-05 00:00:00 Patient Secure Msg Doctor Unassigned, [place] [facility] 1.2840.114 350.1.13.10 4.2.7.2.686 [id number] [facility] 2021-09-05 00:00:00 2021-09-05 00:00:00 Patient Secure Msg Doctor Unassigned, [place] [facility] 1.2840.114 350.1.13.10 4.2.7.2.686 [id number] [facility] 2021-09-04 00:00:00 2021-09-04 00:00:00 Patient Secure Msg Vijay Martinez [facility] MEDICAL OFFICE BUILDING 1.20.114 350.1.13.10 4.2.7.2.686 [id number] [id number] [facility] 2021-08-28 00:00:00 2021-08-28 00:00:00 Patient Secure Msg Harsh Charles [facility] 1.2840.114 350.1.13.10 4.2.7.2.686 [id number] [facility] 2021-08-25 00:00:00 2021-08-25 00:00:00 Telephone Dania Pennington [facility] MEDICAL OFFICE BUILDING 1.2840.114 350.1.13.10 4.2.7.2.686 [id number] [facility] 2021-08-25 00:00:00 2021-08-25 00:00:00 Patient Secure Msg Vijay Martinez [facility] MEDICAL OFFICE BUILDING 1.2840.114 350.1.13.10 4.2.7.2.686 [id number] [id number] [facility] 2021-08-24 00:00:00 2021-08-24 00:00:00 Telephone Vijay Martinez [facility] MEDICAL OFFICE BUILDING 1.840.114 350.1.13.10 4.2.7.2.686 [id number] [facility] 2021-08-24 00:00:00 2021-08-24 00:00:00 Patient Secure Msg Vijay Martinez [facility] MEDICAL OFFICE BUILDING 1.284.114 350.1.13.10 4.2.7.2.686 [id number] [id number] [facility] 2021-08-23 00:00:00 2021-08-23 00:00:00 Patient Secure Msg Vijay Martinez [facility] MEDICAL OFFICE BUILDING 1.284.114 350.1.13.10 4.2.7.2.686 [id number] [id number] [facility] 2021-08-23 00:00:00 2021-08-23 00:00:00 Telephone Vijay Martinez [facility] MEDICAL OFFICE BUILDING 1..840.114 350.1.13.10 4.2.7.2.686 [id number] [id number] [facility] 2021-08-22 00:00:00 2021-08-22 00:00:00 Telephone Vijay Martinez [facility] MEDICAL OFFICE BUILDING 1..840.114 350.1.13.10 4.2.7.2.686 [id number] 044 [id number] [facility] 2021-08-22 00:00:00 2021-08-22 00:00:00 Patient Secure Msg Hallie Wiklinson [facility] OFFICE BUILDING 1.2.840.114 350.1.13.10 4.2.7.2.686 [id number] [facility] 2021-08-18 00:00:00 2021-08-18 00:00:00 Telephone Juan Vijay [facility] OFFICE BUILDING 1..840.114 350.1.13.10 4.2.7.2.686 [id number] [facility] 2021-08-17 09:00:00 2021-08-17 09:00:00 Outpatient CELINA STONE [facility] [id number] [facility] 2021-08-17 09:00:00 2021-08-17 09:00:00 Outpatient CELINA STONE [facility] [id number] [facility] 2021-08-17 00:00:00 2021-08-17 00:00:00 Patient Secure Msg [facility] 1.2.840.114 350.1.13.10 4.2.7.2.686 [id number] [facility] 2021-08-17 00:00:00 2021-08-17 00:00:00 Patient Secure Msg Vijay Martinez [facility] [place]?[facility] MEDICAL OFFICE BUILDING 1.2840.114 350.1.13.10 4.2.7.2.686 [id number] [id number] [facility] 2021-08-17 00:00:00 2021-08-17 00:00:00 Patient Secure Msg Vijay Martinez [facility] MEDICAL OFFICE BUILDING 1.2840.114 350.1.13.10 4.2.7.2.686 [id number] [facility] 2021-08-16 00:00:00 2021-08-16 00:00:00 Patient Secure Msg Vijay Martinez [facility] MEDICAL OFFICE BUILDING 1.2840.114 350.1.13.10 4.2.7.2.686 [id number] [id number] [facility] 2021-08-16 00:00:00 2021-08-16 00:00:00 Patient Secure Msg Doctor Unassigned, [place] [facility] OFF[facility] BUILD[facility] 1.2840.114 350.1.13.10 4.2.7.2.686 [id number] [id number] [facility] 2021-08-16 00:00:00 2021-08-16 00:00:00 Patient Secure Msg Vijay Martinez [facility] MEDICAL OFFICE BUILDING 1.2840.114 350.1.13.10 4.2.7.2.686 [id number] [id number] [facility] 2021-08-16 00:00:00 2021-08-16 00:00:00 Patient Secure Msg Vijay Martinez [facility] MEDICAL OFFICE BUILDING 1.2840.114 350.1.13.10 4.2.7.2.686 [id number] [id number] [facility] 2021-08-15 15:30:00 2021-08-15 16:16:42 [facility] 1.114 350.1.13.10 4.2.7.2.686 [id number] [facility] 2021-08-15 15:30:00 2021-08-15 16:16:42 Outpatient ADÁN DIEGO [facility] [id number] [facility] 2021-08-15 15:30:00 2021-08-15 15:30:00 Outpatient ADÁN DIEGO [facility] [id number] [facility] 2021-08-15 15:30:00 2021-08-15 15:30:00 Outpatient ADÁN DIEGO [facility] [id number] [facility] 2021-08-15 15:30:00 2021-08-15 15:30:00 Outpatient ADÁN DIEGO [facility] [id number] [facility] 2021-08-15 09:27:00 2021-08-15 12:26:00 Emergency X MAURA SAMAYOA [facility] ERT [id number] [facility] 2021-08-15 09:27:00 2021-08-15 12:26:00 Emergency Maura Samayoa [facility] 1..114 350.1.13.10 4.2.7.2.686 [id number] [facility] 2021-08-15 09:27:00 2021-08-15 12:26:00 Emergency MAURA DALE [facility] ERT [id number] [facility] 2021-08-15 00:00:00 2021-08-15 00:00:00 Patient Secure Msg Doctor Unassigned, [place] [facility] 1..114 350.1.13.10 4.2.7.2.686 [id number] [facility] 2021-08-14 13:25:00 2021-08-14 23:59:00 Outpatient R VIJAY MARTINEZ [facility] [id number] [facility] 2021-08-14 13:25:00 2021-08-14 23:59:00 Outpatient R VIJAY MARTINEZ [facility] [id number] [facility] 2021-08-14 13:25:00 2021-08-14 13:25:00 Outpatient R VIJAY MARTINEZ [facility] [id number] [facility] 2021-08-14 12:19:07 2021-08-14 13:24:00 Outpatient R VIJAY MARTINEZ [facility] [id number] [facility] 2021-08-14 12:19:07 2021-08-14 13:24:00 Outpatient R VIJAY MARTINEZ [facility] [id number] [facility] 2021-08-14 12:30:00 2021-08-14 13:01:24 First Assistant Manager Visit Lab, Filippo Reneekassandra [facility] TOÑO?[facility] MEDICAL OFFICE [facility] 1.2.840.114 350.1.13.10 4.2.7.2.686 [id number] [facility] 2021-08-14 12:30:00 2021-08-14 12:45:00 First Assistant Manager Visit Lab, Filippo Reneekassandra [facility] TOÑO?[facility] MEDICAL OFFICE BUILDING 1.2.840.114 350.1.13.10 4.2.7.2.686 [id number] [facility] 2021-08-14 11:30:00 2021-08-14 12:31:12 Office Visit Juan [facility] TOÑO?[facility] MEDICAL OFFICE BUILDING 1.2.840.114 350.1.13.10 4.2.7.2.686 [id number] [id number] [facility] 2021-08-14 11:30:00 2021-08-14 12:31:12 Outpatient R VIJAY MARTINEZ [facility] [id number] [facility] 2021-08-14 00:00:00 2021-08-14 00:00:00 Patient Secure Msg Vijay Martinez [facility] MEDICAL OFFICE BUILDING 1.2.840.114 350.1.13.10 4.2.7.2.686 [id number] [id number] [facility] 2021-08-14 00:00:00 2021-08-14 00:00:00 Patient Secure Msg Vijay Martinez [facility] MEDICAL OFFICE BUILDING 1.2.840.114 350.1.13.10 4.2.7.2.686 [id number] 044 [id number] [facility] 2021-08-09 14:45:00 2021-08-09 14:45:00 Outpatient R ADÁN KIM [facility] [id number] [facility] 2021-08-09 00:00:00 2021-08-09 00:00:00 Telephone Vijay Martinez [facility] MEDICAL OFFICE BUILDING 1.2.840.114 350.1.13.10 4.2.7.2.686 [id number] [facility] 2021-08-08 11:30:00 2021-08-08 23:59:00 Outpatient R JUAN VIJAY [facility] [id number] [facility] 2021-08-08 11:30:00 2021-08-08 23:59:00 Hospital Encounter Vijay Martinez [facility] MEDICAL OFFICE BUILDING 1.2.840.114 350.1.13.10 4.2.7.2.686 [id number] [facility] 2021-08-08 11:15:00 2021-08-08 11:15:00 Outpatient R JUAN VIJAY [facility] [id number] [facility] 2021-08-08 11:00:00 2021-08-08 11:00:00 Outpatient R VIJAY MARTINEZ [facility] [id number] [facility] 2021-08-08 00:00:00 2021-08-08 00:00:00 Patient Secure Msg Doctor Unassigned, [place] [facility] 1..840.114 350.1.13.10 4.2.7.2.686 [id number] [facility] 2021-08-07 09:30:00 2021-08-07 10:23:21 Office Visit Vijay Martinez [facility] MEDICAL OFFICE BUILDING 1..840.114 350.1.13.10 4.2.7.2.686 [id number] [id number] [facility] 2021-08-07 09:30:00 2021-08-07 10:23:21 Outpatient R VIJAY MARTINEZ [facility] [id number] [facility] 2021-08-07 09:30:00 2021-08-07 09:30:00 Outpatient R VIJAY MARTINEZ [facility] [id number] [facility] 2021-08-07 00:00:00 2021-08-07 00:00:00 Patient Secure Msg Juan Vijay [facility] MEDICAL OFFICE BUILDING 1..840.114 350.1.13.10 4.2.7.2.686 [id number] [id number] [facility] 2021-08-07 00:00:00 2021-08-07 00:00:00 Patient Secure Msg Vijay Martinez [facility] MEDICAL OFFICE BUILDING 1..840.114 350.1.13.10 4.2.7.2.686 [id number] [facility] 2021-08-07 00:00:00 2021-08-07 00:00:00 Patient Secure Msg Celina Mixon [facility] 1..114 350.1.13.10 4.2.7.2.686 [id number] [facility] 2021-08-04 10:00:00 2021-08-04 10:00:00 Outpatient PETRA MICHAUD [facility] [id number] [facility] 2021-08-04 00:00:00 2021-08-04 00:00:00 Patient Secure Msg Juan Vijay [facility] BUILD[facility] 1..114 350.1.13.10 4.2.7.2.686 [id number] [id number] [facility] 2021-08-03 11:00:00 2021-08-03 12:48:43 Office Visit Jayy Diaz [facility]. .84.114 350.1.13.10 4.2.7.2.686 [id number] [facility] 2021-08-03 11:00:00 2021-08-03 12:48:43 Outpatient R JAYY DIAZ [facility] [id number] [facility] 2021-08-03 11:00:00 2021-08-03 11:00:00 Outpatient R JAYY DIAZ [facility] [id number] [facility] 2021-08-03 00:00:00 2021-08-03 00:00:00 Patient Secure Celina Zheng [facility] 1..114 350.1.13.10 4.2.7.2.686 [id number] [facility] 2021-08-02 00:00:00 2021-08-02 00:00:00 Telephone Vijay Martinez [facility] 1.84.114 350.1.13.10 4.2.7.2.686 [id number] [facility] 2021-07-21 08:00:00 2021-07-21 08:52:53 Outpatient DARRION QUIROZ [facility] [id number] [facility] 2021-07-17 11:30:00 2021-07-17 11:30:00 Outpatient VIJAY ARAUZ [facility] [id number] [facility] 2021-07-17 00:00:00 2021-07-17 00:00:00 Patient Secure Msg Víctorkassandra Vijay [facility] 1.2.840.114 350.1.13.10 4.2.7.2.686 [id number] [facility] 2021-06-19 00:00:00 2021-06-19 00:00:00 [facility]phone [facility] 1.2.840.114 350.1.13.10 4.2.7.2.686 [id number] [facility] 2021-06-09 00:00:00 2021-06-09 00:00:00 Telephone Reji Díaz [facility] 1.2.840.114 350.1.13.10 4.2.7.2.686 [id number] [facility] 2021-06-06 11:15:00 2021-06-06 11:15:00 Outpatient TETO BRANTLEY [facility] [id number] [facility] 2021-06-06 11:15:00 2021-06-06 11:15:00 Outpatient TETO BRANTLEY [facility] [id number] [facility] 2021-06-02 15:45:00 2021-06-02 15:45:00 Outpatient CLAUDETTE CEDILLO [facility] [id number] [facility] 2021-05-31 10:00:00 2021-05-31 10:46:31 Outpatient R VIJAY MARTINEZ [facility] [id number] [facility] 2021-05-31 10:00:00 2021-05-31 10:46:31 Office Visit Vijay Martinez [facility] 1.2.840.114 350.1.13.10 4.2.7.2.686 [id number] [facility] 2021-05-31 10:00:00 2021-05-31 10:46:31 Outpatient R VIJAY MARTINEZ [facility] [id number] [facility] 2021-05-31 00:00:00 2021-05-31 00:00:00 Orders Only Doctor Unassigned, [place] [facility] 1.840.114 350.1.13.10 4.2.7.2.686 [id number] [facility] 2021-05-26 00:00:00 2021-05-26 00:00:00 Telephone Skylar Groves [facility] 1.2840.114 350.1.13.10 4.2.7.2.686 [id number] [facility] 2021-05-26 00:00:00 2021-05-26 00:00:00 Patient Secure Msg VargasPrasanna Cam [facility] PROFESSIO NAL BUILDING 1.2.840.114 350.1.13.10 4.2.7.2.686 [id number] [facility] 2021-05-25 14:00:00 2021-05-25 14:30:00 Telemedici ne Visit Skylar Groves [facility] TOÑO?[facility] MEDICAL OFFICE BUILDING 1.2.840.114 350.1.13.10 4.2.7.2.686 [id number] [facility] 2021-05-25 14:00:00 2021-05-25 14:00:00 Outpatient R SKYLAR GROVES [facility] [id number] [facility] 2021-05-25 14:00:00 2021-05-25 14:00:00 Outpatient R SKYLAR GROVES [facility] [id number] [facility] 2021-05-25 00:00:00 2021-05-25 00:00:00 Patient Secure Msg Skylar Groves [facility] TO[facility]O?[facility] MEDICAL OFFICE BUILDING 1.2.840.114 350.1.13.10 4.2.7.2.686 [id number] [facility] 2021-05-25 00:00:00 2021-05-25 00:00:00 Patient Secure Msg Skylar Groves [facility] TO[facility]O?[facility] MEDICAL OFFICE BUILDING 1.2.840.114 350.1.13.10 4.2.7.2.686 [id number] 044 [id number] [facility] 2021-05-24 00:00:00 2021-05-24 00:00:00 Telephone Rad SerraHPilar [facility] BUILDING 1.2.840.114 350.1.13.10 4.2.7.2.686 [id number] [facility] 2021-05-24 00:00:00 2021-05-24 00:00:00 Patient Secure Msg Rad SerraHPilar [facility] BUILDING 1.2.840.114 350.1.13.10 4.2.7.2.686 [id number] 059 [id number] [facility] 2021-05-24 00:00:00 2021-05-24 00:00:00 Patient Secure Msg Claudette Evans A [facility] TOÑO?[facility] MEDICAL OFFICE BUILDING 1.2.840.114 350.1.13.10 4.2.7.2.686 [id number] [facility] 2021-05-23 10:00:00 2021-05-23 10:00:00 Outpatient R [facility] [id number] [facility] 2021-05-23 10:00:00 2021-05-23 10:00:00 Outpatient R [facility] [id number] [facility] 2021-05-23 00:00:00 2021-05-23 00:00:00 Patient Secure Mslaila Claudette Evans A [facility] MEDICAL OFFICE BUILDING 1..840.114 350.1.13.10 4.2.7.2.686 [id number] 044 [id number] [facility] 2021-05-16 09:00:00 2021-05-16 09:00:00 Outpatient R TETO CARNES [facility] [id number] [facility] 2021-05-12 00:00:00 2021-05-12 00:00:00 Orders Only Doctor Unassigned, [place] [facility] 1..840.114 350.1.13.10 4.2.7.2.686 [id number] [facility] 2021-05-10 13:00:00 2021-05-10 13:00:00 Outpatient R CLAUDETTE EVANS [facility] [id number] [facility] 2021-05-10 13:00:00 2021-05-10 13:00:00 Outpatient R CLAUDETTE EVANS [facility] [id number] [facility] 2021-05-09 00:00:00 2021-05-09 00:00:00 Telephone Prasanna Vargas [facility] NAL BUILDING 1..840.114 350.1.13.10 4.2.7.2.686 [id number] [facility] 2021-05-09 00:00:00 2021-05-09 00:00:00 Patient Secure Msg Rad SerraPilar [facility] BUILDING 1.2.840.114 350.1.13.10 4.2.7.2.686 [id number] [facility] 2021-05-08 16:00:00 2021-05-08 16:00:00 Outpatient Farzana JE ARANA [facility] [id number] [facility] 2021-05-08 16:00:00 2021-05-08 16:00:00 Outpatient JE CRABTREE [facility] [id number] [facility] 2021-05-08 00:00:00 2021-05-08 00:00:00 Patient Secure Msg Rad SerraPilar [facility] BUILDING 1.2.840.114 350.1.13.10 4.2.7.2.686 [id number] [facility] 2021-05-08 00:00:00 2021-05-08 00:00:00 Patient Secure Msg Rad SerraPilar [facility] BUILDING 1.2.840.114 350.1.13.10 4.2.7.2.686 [id number] 059 [id number] [facility] 2021-05-04 00:00:00 2021-05-04 00:00:00 Patient Secure Msg Rad SerraPilar [facility] BUILDING 1.2.840.114 350.1.13.10 4.2.7.2.686 [id number] 059 [id number] [facility] 2021-05-04 00:00:00 2021-05-04 00:00:00 Patient Secure Msg Arjun Reji [facility] BUILDING 1.2.840.114 350.1.13.10 4.2.7.2.686 [id number] 059 [id number] [facility] 2021-05-03 11:15:36 2021-05-03 23:59:00 Outpatient R REJI DÍAZ [facility] [id number] [facility] 2021-05-03 11:15:36 2021-05-03 23:59:00 [facility] 1.2.840.114 350.1.13.10 4.2.7.2.686 [id number] [facility] 2021-05-03 00:00:00 2021-05-03 00:00:00 Telephone Branden Evansbonnie A [facility] TO[facility]O?[facility] MEDICAL OFFICE BUILDING 1..840.114 350.1.13.10 4.2.7.2.686 [id number] 044 [id number] [facility] 2021-05-02 00:00:00 2021-05-02 00:00:00 Telephone Rad Serra [facility] BUILDING 1.840.114 350.1.13.10 4.2.7.2.686 [id number] 059 [id number] [facility] 2021-05-02 00:00:00 2021-05-02 00:00:00 Patient Secure Msg Branden Evansful [facility] MEDICAL OFFICE BUILDING 1.2.840.114 350.1.13.10 4.2.7.2.686 [id number] 044 [id number] [facility] 2021-05-02 00:00:00 2021-05-02 00:00:00 Telephone Cristina Carmelinarico A [facility] TOÑO?[facility] MEDICAL OFFICE BUILDING 1.2840.114 350.1.13.10 4.2.7.2.686 [id number] 044 [id number] [facility] 2021-05-02 00:00:00 2021-05-02 00:00:00 Patient Secure Msg Rad Serra. [facility] NAL BUILDING 1.84.114 350.1.13.10 4.2.7.2.686 [id number] 059 [id number] [facility] 2021-05-02 00:00:00 2021-05-02 00:00:00 Patient Secure Msg Claudette Evans [facility] TOÑO?[facility] MEDICAL OFFICE BUILDING 1.84.114 350.1.13.10 4.2.7.2.686 [id number] 044 [id number] [facility] 2021-04-28 00:00:00 2021-04-28 00:00:00 Patient Secure Msg Claudette Evans [facility] TO[facility]O?[facility] MEDICAL OFFICE BUILDING 1.84.114 350.1.13.10 4.2.7.2.686 [id number] 044 [id number] [facility] 2021-04-27 14:24:00 2021-04-27 15:49:00 Emergency MAGGIE MONTANEZ [facility] ERT [id number] [facility] 2021-04-27 14:24:00 2021-04-27 15:49:00 Emergency Maggie Hamilton [facility] 1.84.114 350.1.13.10 4.2.7.2.686 [id number] [facility] 2021-04-27 11:15:00 2021-04-27 11:30:00 Laboratory Only Only, Ang Db Test Unknown, Attending Thony Johnson [facility] MED[facility] OFF[facility] BUILDING 1.84.114 350.1.13.10 4.2.7.2.686 [id number] [facility] 2021-04-27 11:15:00 2021-04-27 11:15:00 Outpatient R THONY JOHNSON [facility] [id number] [facility] 2021-04-27 00:00:00 2021-04-27 00:00:00 Orders Only Doctor Unassigned, [place] [facility] 1.2840.114 350.1.13.10 4.2.7.2.686 [id number] [facility] 2021-04-20 15:00:00 2021-04-20 15:00:00 Outpatient R EDER FLETCHER [facility] [id number] [facility] 2021-04-13 00:00:00 2021-04-13 00:00:00 Patient Secure Msg Carmelina Evansrico A [facility] MEDICAL OFFICE BUILDING 1.284.114 350.1.13.10 4.2.7.2.686 [id number] 044 [id number] [facility] 2021-04-12 00:00:00 2021-04-12 00:00:00 Telephone [facility] BUILDING 1.284.114 350.1.13.10 4.2.7.2.686 [id number] 044 [id number] [facility] 2021-03-27 00:00:00 2021-03-27 00:00:00 Telephone Prasanna Vargas [facility] BU[facility] 1.2840.114 350.1.13.10 4.2.7.2.686 [id number] [facility] 2021-03-24 00:00:00 2021-03-24 00:00:00 Patient Secure Msg Doctor Unassigned, [place] [facility] 1.2840.114 350.1.13.10 4.2.7.2.686 [id number] [facility] 2021-03-23 13:30:00 2021-03-23 13:30:00 Outpatient R PINO HOFF [facility] [id number] [facility] 2021-03-23 13:30:00 2021-03-23 13:30:00 Outpatient R JOSE HOFFОЛЕГELE [facility] [id number] [facility] 2021-03-22 09:20:00 2021-03-22 09:20:00 Outpatient R ADITYA MEEKS STRANJEz [facility] [id number] [facility] 2021-03-22 09:20:00 2021-03-22 09:20:00 Outpatient R ADITYA MEEKS STRANJEz [facility] [id number] [facility] 2021-03-20 00:00:00 2021-03-20 00:00:00 Outpatient CLAUDETTE CEDILLO [facility] [id number] [facility] 2021-03-18 00:00:00 2021-03-18 00:00:00 Case Management [facility]Carmel[facility] MEDICAL OFFICE BUILDING 2.840.114 350.1.13.10 4.2.7.2.686 [id number] 044 [id number] [facility] 2021-03-16 11:16:07 2021-03-16 11:31:07 First Assistant Manager Visit Lab, Ang - Db ChittendenCarmelina ibrahimFormerly [facility] MEDICAL OFFICE [address]2.840.114 350.1.13.10 4.2.7.2.686 [id number] [facility] 2021-03-16 11:30:00 2021-03-16 11:30:00 Outpatient R CLAUDETTE EVANS [facility] [id number] [facility] 2021-03-16 11:00:00 2021-03-16 11:14:45 Outpatient R CLAUDETTE EVANS [facility] [id number] [facility] 2021-03-16 10:00:58 2021-03-16 11:14:45 Office Visit Claudette Evans [facility] LULU LUNDBERG?[facility] MEDICAL OFF[facility] BUILDING 1..840.114 350.1.13.10 4.2.7.2.686 [id number] 044 [id number] [facility] 2021-03-16 00:00:00 2021-03-16 00:00:00 Patient Secure Msg Claudette Evans [facility] LULU [facility]?[facility] MEDICAL OFFICE BUILDING 1.840.114 350.1.13.10 4.2.7.2.686 [id number] 044 [id number] [facility] 2021-03-02 16:15:00 2021-03-02 16:15:00 Outpatient R CLAUDETTE EVANS [facility] [id number] [facility] 2021-02-28 18:30:00 2021-02-28 18:30:00 Outpatient R MITCHELL ILEANA [facility] [id number] [facility] 2021-02-28 00:00:00 2021-02-28 00:00:00 Telephone [facility] Medical Office Building 1..840.114 350.1.13.10 4.2.7.2.686 [id number] [facility] 2021-02-27 09:00:00 2021-02-27 09:00:00 Outpatient R STEPHANY AMELIA [facility] [id number] [facility] 2021-02-23 00:00:00 2021-02-23 00:00:00 Telephone [facility] Medical Office Building 1..840.114 350.1.13.10 4.2.7.2.686 [id number] 044 [id number] [facility] 2021-02-10 18:12:00 2021-02-10 23:39:00 Emergency Kaycee Méndez [facility] 1.2.840.114 350.1.13.10 4.2.7.2.686 [id number] [facility] 2021-02-10 00:00:00 2021-02-10 00:00:00 Patient Secure Msg Branden Evansful Kassandra [facility] TO[facility]O?[facility] MEDICAL OFFICE BUILDING 1.2.840.114 350.1.13.10 4.2.7.2.686 [id number] 044 [id number] [facility] 2021-02-10 00:00:00 2021-02-10 00:00:00 Patient Secure Msg Claudette Evans [facility] TO[facility]O?[facility] MEDICAL OFFICE BUILDING 1.2.840.114 350.1.13.10 4.2.7.2.686 [id number] [facility] 2021-02-10 00:00:00 2021-02-10 00:00:00 Patient Secure Msg Claudette Evans [facility] MEDICAL OFFICE BUILDING 1.2.840.114 350.1.13.10 4.2.7.2.686 [id number] 044 [id number] [facility] 2021-02-10 00:00:00 2021-02-10 00:00:00 Patient Secure Msg lCaudette Evans [facility] MEDICAL OFFICE BUILDING 1.2.840.114 350.1.13.10 4.2.7.2.686 [id number] [facility] 2021-02-09 13:40:00 2021-02-09 23:59:00 Hospital Encounter Claudette Evans [facility] Medical Office Building 1.2.840.114 350.1.13.10 4.2.7.2.686 [id number] [facility] 2021-02-09 13:49:05 2021-02-09 14:04:05 First Assistant Manager Visit Lab, Filippo Shirley Claudette Evans [facility] Medical Office Building 1..840.114 350.1.13.10 4.2.7.2.686 [id number] [facility] 2021-02-09 12:23:13 2021-02-09 13:47:12 Office Visit Claudette Evans [facility] Medical Office Building 1..840.114 350.1.13.10 4.2.7.2.686 [id number] [facility] 2021-02-09 13:00:00 2021-02-09 13:00:00 Outpatient R CLAUDETTE EVANS [facility] [id number] [facility] 2021-02-09 00:00:00 2021-02-09 00:00:00 Patient Secure Msg Doctor Unassigned, [place] [facility] 1..840.114 350.1.13.10 4.2.7.2.686 [id number] [facility] 2021-02-08 10:20:00 2021-02-08 10:20:00 Outpatient ADITYA FRAUSTO STRAHIL [facility] [id number] [facility] 2021-02-07 00:00:00 2021-02-07 00:00:00 Patient Secure Msg Claud[facility] MEDICAL OFFICE BUILDING 1..840.114 350.1.13.10 4.2.7.2.686 [id number] [facility] 2021-02-02 10:30:00 2021-02-02 10:30:00 Outpatient SKYLAR CEBALLOS [facility] [id number] [facility] 2021-02-02 00:00:00 2021-02-02 00:00:00 Telephone ChittendenClaudette ibrahim [facility] Medical Office Building 1.840.114 350.1.13.10 4.2.7.2.686 [id number] [facility] 2021-02-01 08:30:00 2021-02-01 08:30:00 Outpatient R SKYLAR GROVES [facility] [id number] [facility] 2021-01-31 18:44:04 2021-01-31 19:41:26 [facility] Medical Office Building 1.84.114 350.1.13.10 4.2.7.2.686 [id number] [facility] 2021-01-31 19:00:00 2021-01-31 19:00:00 Outpatient R FLACO BOYD [facility] [id number] [facility] 2021-01-31 00:00:00 2021-01-31 00:00:00 Telephone CristinaClaudette ibrahim [facility] Medical Office Building 1.84.114 350.1.13.10 4.2.7.2.686 [id number] 044 [id number] [facility] 2021-01-31 00:00:00 2021-01-31 00:00:00 Patient Secure Msg Claudette Evans [facility] TO[facility]O?[facility] MEDICAL OFFICE BUILDING 1.840.114 350.1.13.10 4.2.7.2.686 [id number] 044 [id number] [facility] 2021-01-30 00:00:00 2021-01-30 00:00:00 Telephone Rad Serra [facility] Edna Escudero nal Building 1.84.114 350.1.13.10 4.2.7.2.686 [id number] 059 [id number] [facility] 2021-01-30 00:00:00 2021-01-30 00:00:00 Patient Secure Msg Claudette Evnas [facility] NAL OFFICE BUILDING ONE 1.840.114 350.1.13.10 4.2.7.2.686 [id number] 044 [id number] [facility] 2021-01-26 14:00:00 2021-01-26 14:00:00 Outpatient R RAD SERRA [facility] [id number] [facility] 2021-01-26 00:00:00 2021-01-26 00:00:00 Patient Secure Msg Skylar Groves [facility] TO[facility]O?[facility] MEDICAL OFFICE BUILDING 1.840.114 350..13.10 4.2.7.2.686 [id number] [facility] 2021-01-25 15:00:00 2021-01-25 15:00:00 Outpatient R [facility] [id number] [facility] 2021-01-21 00:00:00 2021-01-21 00:00:00 Patient Secure Msg Skylar Groves [facility] TO[facility] MEDICAL OFFICE BUILDING 1.840.114 350.1.13.10 4.2.7.2.686 [id number] 044 [id number] [facility] 2021-01-20 16:51:22 2021-01-20 17:12:41 Telemedici ne Visit Skylar Groves Kassandra [facility] Toño?[facility] Medical Office Building 1.840.114 350.1.13.10 4.2.7.2.686 [id number] [facility] 2021-01-20 16:30:00 2021-01-20 16:30:00 Outpatient R SKYLAR GROVES [facility] [id number] [facility] 2021-01-19 10:15:00 2021-01-19 10:15:00 Outpatient KAYLEY IYER [facility] [id number] [facility] 2021-01-14 00:00:00 2021-01-14 00:00:00 Case Management Venkat Kassandra S [facility] 1..840.114 350.1.13.10 4.2.7.2.686 [id number] [facility] 2021-01-14 00:00:00 2021-01-14 00:00:00 Patient Secure Msg Doctor Unassigned, [place] [facility] 1..840.114 350.1.13.10 4.2.7.2.686 [id number] [id number] [facility] 2021-01-12 16:10:00 2021-01-12 19:45:00 Emergency Karin Matthews [facility] 1..840.114 350.1.13.10 4.2.7.2.686 [id number] [facility] 2021-01-12 15:20:00 2021-01-12 15:20:00 Outpatient ILEANA CASE [facility] [id number] [facility] 2021-01-12 14:46:57 2021-01-12 15:06:57 Urgent Care Thony Johnson [facility]?Tessa [facility] Medical Office Building 1..840.114 350.1.13.10 4.2.7.2.686 [id number] [facility] 2020-12-26 15:30:00 2020-12-26 16:13:32 Outpatient RAD MATAMOROS [facility] [id number] [facility] 2020-12-26 15:30:00 2020-12-26 16:13:32 Office Visit Rad SerraPauloPilar [facility] BUILDING 1.2.840.114 350.1.13.10 4.2.7.2.686 [id number] [facility] 2020-12-26 15:00:32 2020-12-26 16:13:32 Office Visit Rad Serra KayceePilarPauloPilar [facility] Building 1.2840.114 350.1.13.10 4.2.7.2.686 [id number] [facility] 2020-12-26 15:30:00 2020-12-26 15:30:00 Outpatient R RAD SERRA [facility] [id number] [facility] 2020-11-29 00:00:00 2020-11-29 00:00:00 Patient Secure Msg Delroy Rad KayceePilarPauloPilar [facility] BUILDING 1.2.840.114 350.1.13.10 4.2.7.2.686 [id number] [facility] 2020-11-22 11:00:00 2020-11-22 11:00:00 Outpatient R CELINA MIXON [facility] [id number] [facility] 2020-11-10 18:42:46 2020-11-10 19:53:43 Urgent Care Alissa Collins [facility] Office Building One 1.2840.114 350.1.13.10 4.2.7.2.686 [id number] 2020-11-10 19:00:00 2020-11-10 19:00:00 Outpatient R [facility] [id number] [facility] 2020-10-31 18:52:00 2020-10-31 22:15:00 Emergency Kaycee Méndez [facility] 1.2840.114 350.1.13.10 4.2.7.2.686 [id number] 2020-10-31 19:00:00 2020-10-31 19:00:00 Outpatient CARI TUTTLE [facility] [id number] [facility] 2020-10-31 00:00:00 2020-10-31 00:00:00 Orders Only Doctor Unassigned, [place] [facility] 1.2.840.114 350.1.13.10 4.2.7.2.686 [id number] 2020-10-20 14:02:00 2020-10-20 17:13:00 Emergency Kaycee Méndez [facility] 1.2.840.114 350.1.13.10 4.2.7.2.686 [id number] 2020-10-18 00:00:00 2020-10-18 00:00:00 Patient Secure Msg Prasanna Vargas [facility] BUILDING 1.2.840.114 350.1.13.10 4.2.7.2.686 [id number] [facility] 2020-10-14 10:00:00 2020-10-14 23:59:00 Hospital Encounter Prasanna Vargas [facility] 1.2.840.114 350.1.13.10 4.2.7.2.686 [id number] 2020-10-14 13:30:00 2020-10-14 13:30:00 Outpatient CELINA STONE [facility] [id number] [facility] 2020-10-11 00:00:00 2020-10-11 00:00:00 [facility] 1.2.840.114 350.1.13.10 4.2.7.2.686 [id number] 134 [id number] [facility] 2020-10-11 00:00:00 2020-10-11 00:00:00 Patient Secure Msg Prasanna Vargas [facility] 1.2.840.114 350.1.13.10 4.2.7.2.686 [id number] 134 [id number] [facility] 2020-10-09 12:00:00 2020-10-09 15:57:00 Emergency Anna Kim [facility] 1.2.840.114 350.1.13.10 4.2.7.2.686 [id number] 2020-10-07 00:00:00 2020-10-07 00:00:00 Patient Secure Msg Prasanna Vargas [facility] 1.2.840.114 350.1.13.10 4.2.7.2.686 [id number] 134 [id number] [facility] 2020-10-07 00:00:00 2020-10-07 00:00:00 Patient Secure Msg Prasanna Vargas [facility] 1.2.840.114 350.1.13.10 4.2.7.2.686 [id number] 134 [id number] [facility] 2020-10-07 00:00:00 2020-10-07 00:00:00 Patient Secure Msg Prasanna Vargas [facility] 1.2.840.114 350.1.13.10 4.2.7.2.686 [id number] 134 [id number] [facility] 2020-10-07 00:00:00 2020-10-07 00:00:00 Patient Secure Msg Prasanna Vargas [facility] 1.2.840.114 350.1.13.10 4.2.7.2.686 [id number] 134 [id number] [facility] 2020-10-07 00:00:00 2020-10-07 00:00:00 Patient Secure Msg Prasanna Vargas [facility] 1.2.840.114 350.1.13.10 4.2.7.2.686 [id number] 134 [id number] [facility] 2020-10-07 00:00:00 2020-10-07 00:00:00 Patient Secure Msg Prasanna Vargas [facility] 1.2.840.114 350.1.13.10 4.2.7.2.686 [id number] 134 [id number] [facility] 2020-10-07 00:00:00 2020-10-07 00:00:00 Patient Secure Msg Prasanna Vargas [facility] 1.2.840.114 350.1.13.10 4.2.7.2.686 [id number] 134 [id number] [facility] 2020-10-06 08:53:00 2020-10-06 09:46:44 Office Visit Prasanna Vargas [facility] 1.2.840.114 350.1.13.10 4.2.7.2.686 [id number] 2020-10-06 09:30:00 2020-10-06 09:30:00 Outpatient R PRASANNA VARGAS [facility] [id number] [facility] 2020-10-04 14:00:00 2020-10-04 14:00:00 [facility] [facility] [id number] [facility] 2020-09-30 10:30:00 2020-09-30 10:30:00 Outpatient CELINA STONE [facility] [id number] [facility] 2020-09-29 13:45:00 2020-09-29 13:45:00 Outpatient PREET KRISHNA [facility] [id number] [facility] 2020-09-06 15:30:00 2020-09-06 15:30:00 Outpatient PRASANNA LOOMIS [facility] [id number] [facility] 2020-09-05 00:00:00 2020-09-05 00:00:00 Patient Secure Prasanna Kang [facility] 1.2.840.114 350.1.13.10 4.2.7.2.686 [id number] [facility] 2020-09-02 15:40:00 2020-09-02 15:40:00 Outpatient DARRION QUIROZ HOWARD [facility] [id number] [facility] 2020-08-31 10:30:00 2020-08-31 10:30:00 Outpatient RAD MATAMOROS [facility] [id number] [facility] 2020-08-31 00:00:00 2020-08-31 00:00:00 Patient Secure Prasanna Kang [facility] 1.2.840.114 350.1.13.10 4.2.7.2.686 [id number] [facility] 2020-08-18 09:30:00 2020-08-18 09:30:00 Outpatient PRASANNA LOOMIS [facility] [id number] [facility] 2020-08-11 13:30:00 2020-08-11 13:30:00 Outpatient R PRASANNA VARGAS [facility] [id number] [facility] 2020-08-04 14:00:00 2020-08-04 14:00:00 Outpatient R EDER FLETCHER [facility] [id number] [facility] 2020-07-28 10:30:00 2020-07-28 10:30:00 Outpatient R RAD SERRA [facility] [id number] [facility] 2020-06-30 16:15:00 2020-06-30 16:15:00 Outpatient R CLAUDETTE EVANS [facility] [id number] [facility] 2020-06-17 15:00:00 2020-06-17 15:00:00 Outpatient DARRION QUIROZ HOWARD [facility] [id number] [facility] 2020-06-16 15:30:00 2020-06-16 15:30:00 Outpatient R RAD SERRA [facility] [id number] [facility] 2020-06-09 12:30:00 2020-06-09 12:30:00 Outpatient R NI DISLA [facility] [id number] [facility] 2020-06-08 08:00:00 2020-06-08 08:00:00 Outpatient R NI DISLA [facility] [id number] [facility] 2020-06-02 09:00:00 2020-06-02 09:00:00 Outpatient RAD MATAMOROS [facility] [id number] [facility] 2020-05-28 10:00:00 2020-05-28 10:00:00 Outpatient R NATASHA CARI [facility] [id number] [facility] 2020-05-26 00:00:00 2020-05-26 00:00:00 Patient Secure Msg Claudette Evans [facility] ONE .2.840.114 350.1.13.10 4.2.7.2.686 [id number] [facility] 2020-05-24 10:00:00 2020-05-24 10:00:00 Outpatient R NI DISLA [facility] [id number] [facility] 2020-05-24 00:00:00 2020-05-24 00:00:00 Patient Secure Msg Doctor Unassigned, [place] [facility] 1.2.840.114 350.1.13.10 4.2.7.2.686 [id number] [facility] 2020-05-19 16:30:00 2020-05-19 16:30:00 Outpatient R OSITO HITCHCOCK [facility] [id number] [facility] 2020-05-17 13:00:00 2020-05-17 13:00:00 Outpatient Farzana VILLEDAYOSELIN DARRION DARRION WYATT [facility] [id number] [facility] 2020-05-16 16:00:00 2020-05-16 16:00:00 Outpatient Farzana CRISTINACARMELINA IBRAHIMTAINABONNIE [facility] [id number] [facility] 2020-05-09 00:00:00 2020-05-09 00:00:00 Patient Secure Claudette Hinds [facility] ONE .840.114 350.1.13.10 4.2.7.2.686 [id number] [facility] 2020-05-08 10:24:00 2020-05-08 13:03:00 Emergency X OLAMIDE GARVIN [facility] ERT [id number] [facility] 2020-05-03 15:00:00 2020-05-03 15:00:00 Outpatient R CARMELINA EVANSTAINABONNIE [facility] [id number] [facility] 2020-04-30 11:14:00 2020-05-01 15:50:00 Outpatient X RODRIGUEZ HOFF [facility] [place] [id number] [facility] 2020-04-30 10:20:00 2020-04-30 10:20:00 Outpatient R ROSALES SHAY [facility] [id number] [facility] 2020-04-30 10:15:00 2020-04-30 10:15:00 Outpatient R ROSALES SHAY [facility] [id number] [facility] 2020-04-29 00:00:00 2020-04-29 00:00:00 Patient Secure Osito Hitchcock [facility] .114 350.1.13.10 4.2.7.2.686 [id number] [facility] 2020-04-28 14:00:00 2020-04-28 14:00:00 Outpatient R OSITO HITCHCOCK [facility] [id number] [facility] 2020-04-25 16:15:00 2020-04-25 16:15:00 Outpatient R CRISTINA CARMELINARICO [facility] [id number] [facility] 2020-04-22 00:00:00 2020-04-22 00:00:00 Patient Secure Msg [facility] 1.2.840.114 350.1.13.10 4.2.7.2.686 [id number] [facility] 2020-04-18 10:00:00 2020-04-18 10:00:00 Outpatient R OSITO HITCHCOCK [facility] [id number] [facility] 2020-04-15 10:30:00 2020-04-15 10:30:00 Outpatient R RAD SERRA [facility] [id number] [facility] 2020-04-12 13:38:00 2020-04-13 16:25:00 [facility] [id number] [facility] 2020-03-17 16:15:00 2020-03-17 16:15:00 Outpatient TETO BRANTLEY [facility] [id number] [facility] 2020-03-04 00:00:00 2020-03-04 00:00:00 Osito Barnes [facility] .2.840.114 350.1.13.10 4.2.7.2.686 [id number] 2020-02-25 16:00:00 2020-02-25 16:00:00 Outpatient OSITO AMARO [facility] [id number] [facility] 2020 14:00:00 2020 14:00:00 Outpatient MAHIN BRANTLEYCY [facility] [id number] [facility] 2020-02-08 10:30:00 2020-02-08 10:30:00 Outpatient R PRASANNA VARGAS [facility] [id number] [facility] 2020-02-05 00:00:00 2020-02-05 00:00:00 Patient Secure [facility] 1.2.840.114 350.1.13.10 4.2.7.2.686 [id number] [facility] 2020-02-04 13:30:00 2020-02-04 13:30:00 Outpatient R JACOB HITCHCOCKR [facility] [id number] [facility] 2020-01-23 10:15:00 2020-01-23 10:15:00 Outpatient R [facility] [id number] [facility] 2020-01-21 13:00:00 2020-01-21 13:00:00 Outpatient R JACOB HITCHCOCKR [facility] [id number] [facility] 2020-01-14 16:00:00 2020-01-14 16:00:00 Outpatient R JACOB HITCHCOCKR [facility] [id number] [facility] 2020-01-05 13:45:00 2020-01-05 13:45:00 Outpatient R PRASANNA VARGAS [facility] [id number] [facility] 2020-01-05 00:00:00 2020-01-05 00:00:00 Patient Secure Msg Prasanna Vargas [facility] 1.2.840.114 350.1.13.10 4.2.7.2.686 [id number] [facility] 2019-12-03 10:30:00 2019-12-03 10:30:00 Outpatient R AKINSICRICKET GAN [facility] [id number] [facility] 2019-11-27 11:00:00 2019-11-27 11:00:00 Outpatient R TETO CARNES [facility] [id number] [facility] 2019-11-26 00:00:00 2019-11-26 00:00:00 Patient Secure Msg Doctor Unassigned, [place] [facility] 1.2.840.114 350.1.13.10 4.2.7.2.686 [id number] [facility] 2019-11-25 08:00:00 2019-11-25 08:00:00 Outpatient R TETO CARNES [facility] [id number] [facility] 2019-11-23 00:00:00 2019-11-23 00:00:00 Patient Secure Msg Doctor Unassigned, [place] [facility] 1..840.114 350.1.13.10 4.2.7.2.686 [id number] [facility] 2019-11-18 10:00:00 2019-11-18 10:00:00 Outpatient R TETO CARNES [facility] [id number] [facility] 2019-11-17 00:00:00 2019-11-17 00:00:00 Patient Secure Msg Doctor Unassigned, [place] [facility] 1..840.114 350.1.13.10 4.2.7.2.686 [id number] [facility] 2019-11-13 00:00:00 2019-11-13 00:00:00 Patient Secure Msg Prasanna Vargas Jm [facility] 1..840.114 350.1.13.10 4.2.7.2.686 [id number] [facility] 2019-09-02 11:00:00 2019-09-02 11:00:00 Outpatient R CRICKET TAYLOR [facility] [id number] [facility] 2019-08-14 10:15:00 2019-08-14 10:15:00 Outpatient R TETO CARNES [facility] [id number] [facility] 2019-08-13 11:00:00 2019-08-13 11:00:00 Outpatient R CRICKET TAYLOR [facility] [id number] [facility] 2019-08-12 09:00:00 2019-08-12 09:00:00 Outpatient R [facility] [id number] [facility] 2019-07-20 16:06:00 2019-07-20 16:06:00 Outpatient P PRASANNA VARGAS [facility] [id number] [facility] 2019-07-20 08:15:00 2019-07-20 08:15:00 Outpatient R CRICKET TAYLOR [facility] [id number] [facility] 2019-07-13 08:00:00 2019-07-13 08:00:00 Outpatient R CRICKET TAYLOR [facility] [id number] [facility] 2019-07-12 13:39:00 2019-07-12 13:39:00 Outpatient P PRASANNA VARGAS [facility] [id number] [facility] 2019-07-06 13:00:00 2019-07-06 13:00:00 Outpatient R CRICKET TAYLOR [facility] [id number] [facility] 2019-06-13 10:40:46 2019-06-13 12:35:00 Emergency X MARGARITA SARAHI [facility] ERT [id number] [facility] 2019-05-13 23:07:00 2019-05-14 09:15:00 Outpatient P ORLANDO VARGASEN [facility] [id number] [facility] Results Test Description Test Time Test Comments Results Result Co [facility]ments [facility]24* Test Item Value Reference Range Interpretation Comme nts LIPASE (test code = 3130850587) 40 U/L 0-220 Lab Interpretation (test cod e = 44041-6) [facility] [id number] 16:27:28EXAM: CT ABDOMEN PELVIS W CONTRAST HISTORY: [...] hypodensity isseen within the right gluteal soft tissue.[facility] CBC WITH [id number] 16:14:18* Test Item Value Reference Range Interpretation Comme nts WBC (test code = 6690-2) 6.32 See_Comment [Automated Trapit] The system which generated this result transmitted reference range: 4.30 - 11.10 10*3/?L. The reference range was not used to interpret this result as normal/abnormal. RBC (test code = 789-8) 4.61 See_Comment [Automated Trapit] The system which generated this result transmitted [...] 34.1 g/dL 31.6-35.1 RDW-SD (test code = 68078-1) 42.0 fL 39.0-49.9 RDW-CV (test code = 788-0) 13.0 % 12.0-15.5 PLT (test code = 777-3) 369 See_Comment H [Automated messa ge] The system which generated this result transmitted reference range: 166 - 358 10*3/?L. The reference range was not used to interpret this result as normal/abnormal. MPV (test code = 01946-8) 9.9 fL 9.5-12.9 NRBC/100 WBC (test code = 9370318063) 0.0 See_Comment [Automated [employer] ssage] The system which generated this result transmitted reference range: 0.0 - 10.0 /100 WBCs. The reference range was not used to interpret this result as normal/abnormal. NRBC x10^3 (test code = 9263274779) See_Comment [Automated messa ge] The system which generated this result transmitted reference range: 10*3/?L. The reference range was not used to interpret this result as normal/abnormal. GRAN MAT (NEUT) % (test code = 770-8) 64.8 % IMM GRAN % (test code = 5910650692) 0.50 % LYMPH % (test code = 736-9) 25.3 % MONO % (test code = 5905-5) 4.1 % EOS % (test code = 713-8) 4.7 % BASO % (test code = 706-2) 0.6 % GRAN MAT x10^3(ANC) (test code = 9556371923) 4.09 10*3/uL 1.88-7.09 IMM GRAN x10^3 (test code = 4945146564) 0.03 10*3/uL 0.00-0.06 LYMPH x10^3 (test code = 731-0) 1.60 10*3/uL 1.32-3.29 MONO x10^3 (test code = 742-7) 0.26 10*3/uL 0.33-0.92 L EOS x10^3 (test code = 711-2) 0.30 10*3/uL 0.03-0.39 BASO x10^3 (test code = 704-7) 0.04 10*3/uL 0.01-0.07 Lab Interpretation (test code = 24663-6) [facility] [id number] 15:31:00* Test Item Value Reference Range Interpretation Comme nts POCT PREG (test code = 1605) Negative On board controls acceptable with C Line (test code = 3574) Yes POCT PREG LOT # (test code = 3575) [id number] POCT PREG TEST DATE ( test code = 3576) 2024-07-21 Lab Interpretation (test cod e = 89840-6) Normal [facility] WITH [id number] 04:28:47* Test Item Value Reference Range Interpretation Comme nts WBC (test code = 6690-2) 5.45 See_Comment [Automated [employer] ge] The system which generated this result transmitted reference range: 4.30 - 11.10 10*3/?L. The reference range was not used to interpret this result as normal/abnormal. RBC (test code = 789-8) 4.59 See_Comment [Automated [employer] ge] The system which generated this result [...] 34.0 g/dL 31.6-35.1 RDW-SD (test code = 92307-0) 40.3 fL 39.0-49.9 RDW-CV (test code = 788-0) 13.1 % 12.0-15.5 PLT (test code = 777-3) 307 See_Comment [Automated messa ge] The system which generated this result transmitted reference range: 166 - 358 10*3/?L. The reference range was not used to interpret this result as normal/abnormal. MPV (test code = 18261-5) 11.0 fL 9.5-12.9 NRBC/100 WBC (test code = 6823926148) 0.0 See_Comment [Automated [employer] ssage] The system which generated this result transmitted reference range: 0.0 - 10.0 /100 WBCs. The reference range was not used to interpret this result as normal/abnormal. NRBC x10^3 (test code = 3393594713) See_Comment [Automated messa ge] The system which generated this result transmitted reference range: 10*3/?L. The reference range was not used to interpret this result as normal/abnormal. GRAN MAT (NEUT) % (test code = 770-8) 52.0 % IMM GRAN % (test code = 8096347182) 0.20 % LYMPH % (test code = 736-9) 38.0 % MONO % (test code = 5905-5) 4.6 % EOS % (test code = 713-8) 4.6 % BASO % (test code = 706-2) 0.6 % GRAN MAT x10^3(ANC) (test code = 6711024507) 2.84 10*3/uL 1.88-7.09 IMM GRAN x10^3 (test code = 6546262904) 0.00-0.06 LYMPH x10^3 (test code = 731-0) 2.07 10*3/uL 1.32-3.29 MONO x10^3 (test code = 742-7) 0.25 10*3/uL 0.33-0.92 L EOS x10^3 (test code = 711-2) 0.25 10*3/uL 0.03-0.39 BASO x10^3 (test code = 704-7) 0.03 10*3/uL 0.01-0.07 Lab Interpretation (test code = 52273-8) [facility] (57925)2023-01-12 04:12:43* Test Item Value Reference Range Interpretation Comme nts NA (test code = 7590788277) 137 mmol/L 135-145 K (test code = 9261265456) 3.4 mmol/L 3.5-5.0 L CL (test code = 6316871219) 104 mmol/L 98-108 CO2 TOTAL (test code = 9280914917) 24 mmol/L 23-31 AGAP (test code = 1976917391) 9 2-16 BUN (test code = 6221474450) 2 mg/dL 7-23 L GLUCOSE (test code = 5657975725) 92 mg/dL 70-110 CREATININE (test code = 5710507794) 0.80 mg/dL 0.50-1.04 TOTAL BILI (test code = 5894966867) 0.4 mg/dL 0.1-1.1 CALCIUM (test code = 5928216071) 8.4 mg/dL 8.6-10.6 L T PROTEIN (test code = 0218138992) 6.3 g/dL 6.3-8.2 ALBUMIN (test code = 8950174680) 3.7 g/dL 3.5-5.0 ALK PHOS (test code = 0726263189) 87 U/L 34-122 ALTv (test code = 1742-6) 27 U/L 5-35 AST(SGOT) (test code = 5625220192) 33 U/L 13-40 eGFR (test code = 0691583919) 86.0 mL/min/1.73m2 WESLEY (test code = WESLEY) [...] imaging tests). Lab Interpretation (test code = 07479-2) [facility] (24539)2023-01-12 04:12:43* Test Item Value Reference Range Interpretation Comme nts NA (test code = 9785824059) 137 mmol/L 135-145 K (test code = 0981071085) 3.4 mmol/L 3.5-5.0 L CL (test code = 4660317953) 104 mmol/L 98-108 CO2 TOTAL (test code = 5737033317) 24 mmol/L 23-31 AGAP (test code = 6379225711) 9 2-16 BUN (test code = 2753806199) 2 mg/dL 7-23 L GLUCOSE (test code = 3472417148) 92 mg/dL 70-110 CREATININE (test code = 9431999420) 0.80 mg/dL 0.50-1.04 TOTAL BILI (test code = 1634110957) 0.4 mg/dL 0.1-1.1 CALCIUM (test code = 0717737737) 8.4 mg/dL 8.6-10.6 L T PROTEIN (test code = 2364621222) 6.3 g/dL 6.3-8.2 ALBUMIN (test code = 4597160489) 3.7 g/dL 3.5-5.0 ALK PHOS (test code = 6115809042) 87 U/L 34-122 ALTv (test code = 1742-6) 27 U/L 5-35 AST(SGOT) (test code = 2542140859) 33 U/L 13-40 eGFR (test code = 8606026283) 86.0 mL/min/1.73m2 WESLEY (test code = WESLEY) [...] imaging tests). Lab Interpretation (test code = 80929-3) [facility]:04 BETA HCG<2.39Non- female and male patients: <5 mIU/mL01/11/2023 11:07 PM [facility] Gestational Age ?Range (mIU/mL) 1-10 ?Weeks ?63-26281503-51 Weeks ?17707-29134179-93 Weeks ?2649-40523048-55 Weeks ?1531-294000 Biotin has been reported to cause a negative bias, interpret results relative to patient's use of biotin. Gestational Age ?Range (mIU/mL) 1-10 ?Weeks ?35-96462270-27 Weeks ?28983-26588043-33 Weeks ?9814-80760498-25 Weeks?1531-005159 Biotin has been reported to cause a negative bias, interpret results relative to patient's use of biotin. Gestational Age ?Range (mIU/mL) 1-10 ?Weeks ?37-60355429-86 Weeks ?90355-07316965-92 Weeks ?2939-82021226-99 Weeks ?1531-842638 Biotin has been reported to cause a negative bias, interpretresults relative to patient's use of biotin.[facility] (QUANTITATIVE)2023-01-12 04:07:04BETA HCG<2.39Non- female and male patients: <5 mIU/mL01/11/2023 11:07 PM [facility] Gestational Age ?Range (mIU/mL) 1-10 ?Weeks ?63-71036678-50 Weeks ?60052-41560098-39 Weeks ?6610-42621605-46 Weeks ?1531-691506 Biotin has been reported to cause a negative bias, interpret results relative topatient's use of biotin. Gestational Age ?Range (mIU/mL) 1-10 ?Weeks ?16-80920909-30 Weeks ?65376-88090247-14 Weeks ?6539-79626383-64 Weeks?1531-106695 Biotin has been reported to cause a negative bias, interpret results relative to patient's use of biotin. Gestational Age ?Range (mIU/mL) 1-10 ?Weeks ?41-79499288-88 Weeks ?02528-00774234-64 Weeks ?0178-17249357-27 Weeks ?1531-398118 Biotin has been reported to cause a negative bias, interpretresults relative to patient's use of biotin.[facility] 2023-01-12 03:22:58* Test Item Value Reference Range Interpretation Comme nts LIPASE (test code = 0283954143) 41 U/L 0-220 Lab Interpretation (test cod e = 76337-2) Normal [facility]2023-09-02 03:22:58* Test Item Value Reference Range Interpretation Comme nts LIPASE (test code = 4023212740) 41 U/L 0-220 Lab Interpretation (test cod e = 62632-8) Normal [facility] [id number] 03:02:00* Test Item Value Reference Range Interpretation Comme nts POCT PREG (test code = 1605) Negative On board controls acceptable with C Line (test code = 3574) Yes POCT PREG LOT # (test code = 3575) [id number] POCT PREG TEST DATE ( test code = 3576) 05/15/2024 Lab Interpretation (test cod e = 93079-6) Normal [facility] [id number] 03:02:00* Test Item Value Reference Range Interpretation Comme nts POCT PREG (test code = 1605) Negative On board controls acceptable with C Line (test code = 3574) Yes POCT PREG LOT # (test code = 3575) [id number] POCT PREG TEST DATE ( test code = 3576) 05/15/2024 Lab Interpretation (test cod e = 14751-7) [facility], [id number] 00:23:34* Test Item Value Reference Range Interpretation Comme nts PREG SERUM (test code = 3382206119) Negative WESLEY (test code = WESLEY) Less than 10 IU/L. ?If low titer or ectopic is suspected, resubmit specimen in 48-72 hours. [facility]. METABOLIC PANEL (18564)2022-07-31 23:58:12* Test Item Value Reference Range Interpretation Comme nts NA (test code = 7667716422) 140 mmol/L 135-145 K (test code = 4871299811) 3.6 mmol/L 3.5-5.0 CL (test code = 0969570236) 106 mmol/L 98-108 CO2 TOTAL (test code = 1091807510) 21 mmol/L 23-31 L AGAP (test code = 8534588526) 13 2-16 BUN (test code = 7692869814) 8 mg/dL 7-23 GLUCOSE (test code = 8815711814) 90 mg/dL 70-110 CREATININE (test code = 4753533563) 0.90 mg/dL 0.50-1.04 TOTAL BILI (test code = 9481437946) 0.5 mg/dL 0.1-1.1 CALCIUM (test code = 1249086982) 9.0 mg/dL 8.6-10.6 T PROTEIN (test code = 2676751068) 7.8 g/dL 6.3-8.2 ALBUMIN (test code = 5877111115) 4.6 g/dL 3.5-5.0 ALK PHOS (test code = 2909891532) 63 U/L 34-122 ALTv (test code = 1742-6) 23 U/L 5-35 AST(SGOT) (test code = 9958456312) 27 U/L 13-40 eGFR (test code = 6278707880) 75.1 mL/min/1.73m2 WESLEY (test code = WESLEY) [...] imaging tests). Lab Interpretation (test code = 39812-5) [facility] 23:57:32* Test Item Value Reference Range Interpretation Comme nts LIPASE (test code = 5183323401) 55 U/L 0-220 Lab Interpretation (test cod e = 91965-5) [facility] [id number] 23:47:31* Test Item Value Reference Range Interpretation Comme nts WBC (test code = 6690-2) 5.64 See_Comment [Automated [employer]] The system which generated this result transmitted reference range: 4.30 - 11.10 10*3/?L. The reference range was not used to interpret this result as normal/abnormal. RBC (test code = 789-8) 4.51 See_Comment [Automated [employer]] The system which generated this result transmitted [...] 32.6 g/dL 31.6-35.1 RDW-SD (test code = 22503-5) 42.5 fL 39.0-49.9 RDW-CV (test code = 788-0) 13.0 % 12.0-15.5 PLT (test code = 777-3) 339 See_Comment [Automated [employer]] The system which generated this result transmitted reference range: 166 - 358 10*3/?L. The reference range was not used to interpret this result as normal/abnormal. MPV (test code = 89851-9) 9.4 fL 9.5-12.9 L NRBC/100 WBC (test code = 4132642681) 0.0 See_Comment [Automated [employer]] The system which generated this result transmitted reference range: 0.0 - 10.0 /100 WBCs. The reference range was not used to interpret this result as normal/abnormal. NRBC x10^3 (test code = 2689201565) See_Comment [Automated [employer]] The system which generated this result transmitted reference range: 10*3/?L. The reference range was not used to interpret this result as normal/abnormal. GRAN MAT (NEUT) % (test code = 770-8) 51.2 % IMM GRAN % (test code = 1029013067) 0.20 % LYMPH % (test code = 736-9) 36.5 % MONO % (test code = 5905-5) 5.7 % EOS % (test code = 713-8) 5.9 % BASO % (test code = 706-2) 0.5 % GRAN MAT x10^3(ANC) (test code = 7492479121) 2.89 10*3/uL 1.88-7.09 IMM GRAN x10^3 (test code = 3656223349) 0.00-0.06 LYMPH x10^3 (test code = 731-0) 2.06 10*3/uL 1.32-3.29 MONO x10^3 (test code = 742-7) 0.32 10*3/uL 0.33-0.92 L EOS x10^3 (test code = 711-2) 0.33 10*3/uL 0.03-0.39 BASO x10^3 (test code = 704-7) 0.03 10*3/uL 0.01-0.07 Lab Interpretation (test code = 72733-9) [id number] 16:14:38* Test Item Value Reference Range Interpretation Comme nts POCT Molecular Strep (test c ode = 04247-3) Negative Negative Lab Interpretation (test cod e = 40240-9) Normal [facility]. METABOLIC PANEL (47296)2022-05-05 19:35:37* Test Item Value Reference Range Interpretation Comme nts NA (test code = 6511095090) 139 mmol/L 135-145 K (test code = 7737239139) 4.4 mmol/L 3.5-5.0 CL (test code = 2162646950) 104 mmol/L 98-108 CO2 TOTAL (test code = 3615221239) 22 mmol/L 23-31 L AGAP (test code = 7631909584) 2-16 BUN (test code = 5668091750) 11 mg/dL 7-23 GLUCOSE (test code = 9659153432) 95 mg/dL 70-110 CREATININE (test code = 2762889720) 0.71 mg/dL 0.50-1.04 TOTAL BILI (test code = 1499535655) 0.4 mg/dL 0.1-1.1 CALCIUM (test code = 1092213050) 9.1 mg/dL 8.6-10.6 T PROTEIN (test code = 6468605587) 7.9 g/dL 6.3-8.2 ALBUMIN (test code = 3623781598) 4.7 g/dL 3.5-5.0 ALK PHOS (test code = 1230458091) 114 U/L 34-122 ALTv (test code = 1742-6) 21 U/L 5-35 AST(SGOT) (test code = 8298060738) 21 U/L 13-40 eGFR (test code = 1517453854) mL/min/1.73m2 WESLEY (test code = WESLEY) Association [...] imaging tests). Lab Interpretation (test code = 66667-0) Abnormal [facility] WITH [id number] 19:25:37* Test Item Value Reference Range Interpretation Comme nts WBC (test code = 6690-2) See_Comment [Automated Trapit] The system which generated this result transmitted reference range: 4.30 - 11.10 10*3/?L. The reference range was not used to interpret this result as normal/abnormal. RBC (test code = 789-8) See_Comment [Automated Trapit] The system which generated this result transmitted [...] 32.9 g/dL 31.6-35.1 RDW-SD (test code = 54035-3) 41.7 fL 39.0-49.9 RDW-CV (test code = 788-0) 12.7 % 12.0-15.5 PLT (test code = 777-3) See_Comment H [Automated messa ge] The system which generated this result transmitted reference range: 166 - 358 10*3/?L. The reference range was not used to interpret this result as normal/abnormal. MPV (test code = 55821-4) 8.8 fL 9.5-12.9 L NRBC/100 WBC (test code = 5249374372) See_Comment [Automated [employer] ssage] The system which generated this result transmitted reference range: 0.0 - 10.0 /100 WBCs. The reference range was not used to interpret this result as normal/abnormal. NRBC x10^3 (test code = 2952283544) See_Comment [Automated [employer] ge] The system which generated this result transmitted reference range: 10*3/?L. The reference range was not used to interpret this result as normal/abnormal. GRAN MAT (NEUT) % (test code = 770-8) 56.1 % IMM GRAN % (test code = 6040525998) 0.40 % LYMPH % (test code = 736-9) 29.9 % MONO % (test code = 5905-5) 5.4 % EOS % (test code = 713-8) 7.8 % BASO % (test code = 706-2) 0.4 % GRAN MAT x10^3(ANC) (test code = 7071538496) 3.75 10*3/uL 1.88-7.09 IMM GRAN x10^3 (test code = 1148984106) 0.03 10*3/uL 0.00-0.06 LYMPH x10^3 (test code = 731-0) 2.00 10*3/uL 1.32-3.29 MONO x10^3 (test code = 742-7) 0.36 10*3/uL 0.33-0.92 EOS x10^3 (test code = 711-2) 0.52 10*3/uL 0.03-0.39 H BASO x10^3 (test code = 704-7) 0.03 10*3/uL 0.01-0.07 Lab Interpretation (test code = 73059-2) [facility]:00* Test Item Value Reference Range Interpretation Comme nts POCT PREG (test code = 1605) negative On board controls acceptable with C Line (test code = 3574) present POCT PREG LOT # (test code = 3575) [id number] POCT PREG TEST DATE ( test code = 3576) 08-11-2023 Lab Interpretation (test cod e = 36814-1) Normal [facility] WITH IIQB1370-68-66 15:21:11* Test Item Value Reference Range Interpretation Comme nts WBC (test code = 6690-2) See_Comment [Automated Trapit] The system which generated this result transmitted reference range: 4.30 - 11.10 10*3/?L. The reference range was not used to interpret this result as normal/abnormal. RBC (test code = 789-8) See_Comment [Automated [employer]] The system which generated this result transmitted [...] 33.0 g/dL 31.6-35.1 RDW-SD (test code = 53419-4) 42.6 fL 39.0-49.9 RDW-CV (test code = 788-0) 12.9 % 12.0-15.5 PLT (test code = 777-3) See_Comment H [Automated messa ge] The system which generated this result transmitted reference range: 166 - 358 10*3/?L. The reference range was not used to interpret this result as normal/abnormal. MPV (test code = 30848-4) 9.1 fL 9.5-12.9 L NRBC/100 WBC (test code = 4515615589) See_Comment [Automated me ssage] The system which generated this result transmitted reference range: 0.0 - 10.0 /100 WBCs. The reference range was not used to interpret this result as normal/abnormal. NRBC x10^3 (test code = 0912942872) See_Comment [Automated messa ge] The system which generated this result transmitted reference range: 10*3/?L. The reference range was not used to interpret this result as normal/abnormal. GRAN MAT (NEUT) % (test code = 770-8) 56.8 % IMM GRAN % (test code = 3865097034) 0.30 % LYMPH % (test code = 736-9) 29.5 % MONO % (test code = 5905-5) 4.3 % EOS % (test code = 713-8) 8.3 % BASO % (test code = 706-2) 0.8 % GRAN MAT x10^3(ANC) (test code = 4398409114) 3.57 10*3/uL 1.88-7.09 IMM GRAN x10^3 (test code = 3762178716) 0.00-0.06 LYMPH x10^3 (test code = 731-0) 1.85 10*3/uL 1.32-3.29 MONO x10^3 (test code = 742-7) 0.27 10*3/uL 0.33-0.92 L EOS x10^3 (test code = 711-2) 0.52 10*3/uL 0.03-0.39 H BASO x10^3 (test code = 704-7) 0.05 10*3/uL 0.01-0.07 Lab Interpretation (test code = 07277-8) [facility] (85962)2022-04-26 15:12:13* Test Item Value Reference Range Interpretation Comme nts NA (test code = 8947668144) 141 mmol/L 135-145 K (test code = 9822308522) 3.4 mmol/L 3.5-5.0 L CL (test code = 5593345472) 104 mmol/L 98-108 CO2 TOTAL (test code = 7393679989) 23 mmol/L 23-31 AGAP (test code = 8873055810) 2-16 BUN (test code = 8686930495) 9 mg/dL 7-23 GLUCOSE (test code = 9403240654) 101 mg/dL 70-110 CREATININE (test code = 8935504760) 0.82 mg/dL 0.50-1.04 TOTAL BILI (test code = 1359385650) 0.7 mg/dL 0.1-1.1 CALCIUM (test code = 9668885148) 9.3 mg/dL 8.6-10.6 T PROTEIN (test code = 2201621521) 8.1 g/dL 6.3-8.2 ALBUMIN (test code = 7603377110) 4.7 g/dL 3.5-5.0 ALK PHOS (test code = 4925421587) 108 U/L 34-122 ALTv (test code = 1742-6) 24 U/L 5-35 AST(SGOT) (test code = 3265110369) 49 U/L 13-40 H eGFR (test code = 2384905233) mL/min/1.73m2 WESLEY (test code = WESLEY) Association [...] imaging tests). Lab Interpretation (test code = 67572-6) Abnormal [facility] YVPE6306-68-59 14:45:00* Test Item Value Reference Range Interpretation Comme nts POCT PREG (test code = 1605) negative On board controls acceptable with C Line (test code = 3574) present POCT PREG LOT # (test code = 3575) [id number] POCT PREG TEST DATE ( test code = 3576) 08/11/2023 Lab Interpretation (test cod e = 68396-6) Normal [facility] OKKI9462-48-61 01:22:00* Test Item Value Reference Range Interpretation Comme nts POCT PREG (test code = 1605) Negative On board controls acceptable with C Line (test code = 3574) Present POCT PREG LOT # (test code = 3575) [id number] POCT PREG TEST DATE ( test code = 3576) 08-11-2023 Lab Interpretation (test cod e = 78206-3) Normal [facility] METABOLIC PANEL (NA, K, CL, CO2, GLUCOSE, BUN, CREATININE, CA)2022-04-07 23:01:10* Test Item Value Reference Range Interpretation Comme [facility] NA (test code = 6334235372) 138 mmol/L 135-145 K (test code = 6979341163) 4.3 mmol/L 3.5-5.0 CL (test code = 9845553434) 107 mmol/L 98-108 CO2 TOTAL (test code = 1955931028) 20 mmol/L 23-31 L AGAP (test code = 6008566414) 2-16 BUN (test code = 6918718475) 9 mg/dL 7-23 GLUCOSE (test code = 0274091766) 204 mg/dL 70-110 H CREATININE (test code = 4894192935) 0.74 mg/dL 0.50-1.04 CALCIUM (test code = 8064510713) 9.1 mg/dL 8.6-10.6 eGFR (test code = 4253518769) mL/min/1.73m2 WESLEY (test code = WESLEY) Association [...] imaging tests). Lab Interpretation (test code = 65070-9) Abnormal [facility] WITH KESG1635-34-69 22:57:34* Test Item Value Reference Range Interpretation [...] 33.5 g/dL 31.6-35.1 RDW-SD (test code = 80233-6) 42.9 fL 39.0-49.9 RDW-CV (test code = 788-0) 13.4 % 12.0-15.5 PLT (test code = 777-3) See_Comment H [Automated messa ge] The system which generated this result transmitted reference range: 166 - 358 10*3/?L. The reference range was not used to interpret this result as normal/abnormal. MPV (test code = 30014-9) 8.9 fL 9.5-12.9 L NRBC/100 WBC (test code = 9871695182) See_Comment [Automated [employer] ssage] The system which generated this result transmitted reference range: 0.0 - 10.0 /100 WBCs. The reference range was not used to interpret this result as normal/abnormal. NRBC x10^3 (test code = 3518066746) See_Comment [Automated messa ge] The system which generated this result transmitted reference range: 10*3/?L. The reference range was not used to interpret this result as normal/abnormal. GRAN MAT (NEUT) % (test code = 770-8) 88.7 % IMM GRAN % (test code = 3769666005) 0.70 % LYMPH % (test code = 736-9) 9.4 % MONO % (test code = 5905-5) 0.9 % EOS % (test code = 713-8) 0.1 % BASO % (test code = 706-2) 0.2 % GRAN MAT x10^3(ANC) (test code = 6196389148) 7.81 10*3/uL 1.88-7.09 H IMM GRAN x10^3 (test code = 9268083059) 0.06 10*3/uL 0.00-0.06 LYMPH x10^3 (test code = 731-0) 0.83 10*3/uL 1.32-3.29 L MONO x10^3 (test code = 742-7) 0.08 10*3/uL 0.33-0.92 L EOS x10^3 (test code = 711-2) 0.03-0.39 L BASO x10^3 (test code = 704-7) 0.01-0.07 Lab Interpretation (test code = 92229-4) Abnormal [facility] LIXY7958-06-19 14:07:00* Test Item Value Reference Range Interpretation Comme nts POCT PREG (test code = 1605) negative On board controls acceptable with C Line (test code = 3574) present POCT PREG LOT # (test code = 3575) [id number] POCT PREG TEST DATE ( test code = 3576) 08/11/2023 Lab Interpretation (test cod e = 82517-1) Normal [facility] BPWR4586-36-13 13:52:00* Test Item Value Reference Range Interpretation Comme nts POCT PREG (test code = 1605) negative On board controls acceptable with C Line (test code = 3574) present Lab Interpretation (test cod e = 05111-9) Normal [facility] VYWC6141-93-57 14:59:00* Test Item Value Reference Range Interpretation Comme nts POCT PREG (test code = 1605) negative On board controls acceptable with C Line (test code = 3574) yes POCT PREG LOT # (test code = 3575) [id number] POCT PREG TEST DATE ( test code = 3576) 07/11/2023 Lab Interpretation (test cod e = 40344-2) Normal [facility]. METABOLIC PANEL (27355)2022 17:51:43* Test Item Value Reference Range Interpretation Comme nts NA (test code = 6288231896) 139 mmol/L 135-145 K (test code = 8051691039) 4.1 mmol/L 3.5-5 CL (test code = 1621312322) 104 mmol/L 98-108 CO2 TOTAL (test code = 6533852832) 22 mmol/L 23-31 L AGAP (test code = 4569737345) 2-16 BUN (test code = 7945270887) 7 mg/dL 7-23 GLUCOSE (test code = 6472830810) 114 mg/dL 70-110 H CREATININE (test code = 7495718221) 0.69 mg/dL 0.5-1.04 TOTAL BILI (test code = 9142946857) 0.4 mg/dL 0.1-1.1 CALCIUM (test code = 3524549547) 9.7 mg/dL 8.6-10.6 T PROTEIN (test code = 5908681488) 7.2 g/dL 6.3-8.2 ALBUMIN (test code = 6141913053) 4.6 g/dL 3.5-5 ALK PHOS (test code = 1606582447) 65 U/L 34-122 ALTv (test code = 1742-6) 15 U/L 5-35 AST(SGOT) (test code = 4255834449) 19 U/L 13-40 eGFR (test code = 1695939698) mL/min/1.73m2 WESLEY (test code = WESLEY) Association [...] imaging tests). Lab Interpretation (test code = 93492-1) Abnormal [facility] WITH PREW9676-97-41 17:40:24* Test Item Value Reference Range Interpretation Comme nts WBC (test code = 6690-2) See_Comment [Automated [employer]rapit] The system which generated this result transmitted reference range: 4.30 - 11.10 10*3/?L. The reference range was not used to interpret this result as normal/abnormal. RBC (test code = 789-8) See_Comment [Automated [employer]] The system which generated this result transmitted [...] 33.3 g/dL 31.6-35.1 RDW-SD (test code = 89805-0) 43.1 fL 39-49.9 RDW-CV (test code = 788-0) 13.2 % 12-15.5 PLT (test code = 777-3) See_Comment [Automated messa ge] The system which generated this result transmitted reference range: 166 - 358 10*3/?L. The reference range was not used to interpret this result as normal/abnormal. MPV (test code = 84352-8) 9.5 fL 9.5-12.9 NRBC/100 WBC (test code = 3082959722) See_Comment [Automated [employer] ssage] The system which generated this result transmitted reference range: 0.0 - 10.0 /100 WBCs. The reference range was not used to interpret this result as normal/abnormal. NRBC x10^3 (test code = 3863160078) See_Comment [Automated messa ge] The system which generated this result transmitted reference range: 10*3/?L. The reference range was not used to interpret this result as normal/abnormal. GRAN MAT (NEUT) % (test code = 770-8) 57.8 % IMM GRAN % (test code = 2151806658) 0.20 % LYMPH % (test code = 736-9) 30.8 % MONO % (test code = 5905-5) 5.1 % EOS % (test code = 713-8) 5.6 % BASO % (test code = 706-2) 0.5 % GRAN MAT x10^3(ANC) (test code = 9768840197) 3.61 10*3/uL 1.88-7.09 IMM GRAN x10^3 (test code = 1101736073) 0-0.06 LYMPH x10^3 (test code = 731-0) 1.92 10*3/uL 1.32-3.29 MONO x10^3 (test code = 742-7) 0.32 10*3/uL 0.33-0.92 L EOS x10^3 (test code = 711-2) 0.35 10*3/uL 0.03-0.39 BASO x10^3 (test code = 704-7) 0.03 10*3/uL 0.01-0.07 Lab Interpretation (test code = 23276-1) [facility] LBIV0985[facility] 17:27:00* Test Item Value Reference Range Interpretation Comme nts POCT PREG (test code = 1605) negative On board controls acceptable with C Line (test code = 3574) present POCT PREG LOT # (test code = 3575) [id number] POCT PREG TEST DATE ( test code = 357) Lab Interpretation (test cod e = 71723-7) [facility]45[facility]* Test Item Value Reference Range Interpretation Comme nts LIPASE (test code = 6983323069) 41 U/L 0-220 Lab Interpretation (test cod e = 88215-3) [facility] ILHQ6277-91-40 10:57:00* Test Item Value Reference Range Interpretation Comme nts POCT PREG (test code = 1605) Negative On board controls acceptable with C Line (test code = 3574) Present POCT PREG LOT # (test code = 3575) [id number] POCT PREG TEST DATE ( test code = 3576) 03/12/2023 Lab Interpretation (test cod e = 32768-9) Normal [facility] METABOLIC PANEL (NA, K, CL, CO2, GLUCOSE, BUN, CREATININE, CA)2022-01-18 10:56:51* Test Item Value Reference Range Interpretation Comme nts NA (test code = 8508333054) 137 mmol/L 135-145 K (test code = 0099975920) 4.6 mmol/L 3.5-5 Slight hemolysis CL (test code = 5732570112) 108 mmol/L 98-108 CO2 TOTAL (test code = 5424617022) 22 mmol/L 23-31 L AGAP (test code = 1907591681) 2-16 BUN (test code = 5200168914) 11 mg/dL 7-23 Slight hemolysis GLUCOSE (test code = 7838253867) 83 mg/dL 70-110 CREATININE (test code = 3000587042) 0.68 mg/dL 0.5-1.04 CALCIUM (test code = 8293228637) 8.8 mg/dL 8.6-10.6 eGFR (test code = 0660629027) mL/min/1.73m2 WESLEY (test code = WESLEY) Association [...] imaging tests). Lab Interpretation (test code = 44736-2) [facility] (14046[facility] (ALB,T.PRO,BILI T,BU/BC,ALT,AST,ALK PHOS)2022-01-18 10:56:51* Test Item Value Reference Range Interpretation Comme nts TOTAL BILI (test code = 8947555981) 0.6 mg/dL 0.1-1.1 BILI UNCON (test code = 4892144029) 0.1 mg/dL 0.1-1.1 BILI CONJ (test code = 6425384664) 0.0 mg/dL 0-0.3 T PROTEIN (test code = 7156529666) 8.6 g/dL 6.3-8.2 H ALBUMIN (test code = 3387321941) 5.1 g/dL 3.5-5 H ALK PHOS (test code = 7690938227) 79 U/L 34-122 ALTv (test code = 1742-6) 117 U/L 5-35 H AST(SGOT) (test code = 8211001227) 163 U/L 13-40 H Lab Interpretation (test cod e = 51804-0) [facility]normal [facility], ECPPF4098-52-87 10:54:25* Test Item Value Reference Range Interpretation Comme nts PREG SERUM (test code = 3551601204) Negative WESLEY (test code = WESLEY) Less than 10 IU/L. ?If low titer or ectopic is suspected, resubmit specimen in 48-72 hours. [facility] WITH AEDO7849-24-78 10:40:49* Test Item Value Reference Range Interpretation [...] 33.6 g/dL 31.6-35.1 RDW-SD (test code = 47820-7) 45.3 fL 39-49.9 RDW-CV (test code = 788-0) 14.5 % 12-15.5 PLT (test code = 777-3) See_Comment [Automated messa ge] The system which generated this result transmitted reference range: 166 - 358 10*3/?L. The reference range was not used to interpret this result as normal/abnormal. MPV (test code = 48278-1) 9.5 fL 9.5-12.9 NRBC/100 WBC (test code = 6776195520) See_Comment [Automated me ssage] The system which generated this result transmitted reference range: 0.0 - 10.0 /100 WBCs. The reference range was not used to interpret this result as normal/abnormal. NRBC x10^3 (test code = 1837169682) See_Comment [Automated messa ge] The system which generated this result transmitted reference range: 10*3/?L. The reference range was not used to interpret this result as normal/abnormal. GRAN MAT (NEUT) % (test code = 770-8) 47.6 % IMM GRAN % (test code = 0746816721) 0.60 % LYMPH % (test code = 736-9) 39.9 % MONO % (test code = 5905-5) 5.9 % EOS % (test code = 713-8) 5.3 % BASO % (test code = 706-2) 0.7 % GRAN MAT x10^3(ANC) (test code = 3620956876) 4.45 10*3/uL 1.88-7.09 IMM GRAN x10^3 (test code = 6081558673) 0.06 10*3/uL 0-0.06 LYMPH x10^3 (test code = 731-0) 3.74 10*3/uL 1.32-3.29 H MONO x10^3 (test code = 742-7) 0.55 10*3/uL 0.33-0.92 EOS x10^3 (test code = 711-2) 0.50 10*3/uL 0.03-0.39 H BASO x10^3 (test code = 704-7) 0.07 10*3/uL 0.01-0.07 Lab Interpretation (test code = 79354-7) Abnormal [facility] RDGZ2685-09-91 18:31:00* Test Item Value Reference Range Interpretation Comme nts POCT PREG (test code = 1605) Negative On board controls acceptable with C Line (test code = 3574) Yes POCT PREG LOT # (test code = 3575) POCT PREG TEST DATE ( test code = 3576) [facility] URINALYSIS W/O SPECIFIC FFXZUMM7238-23-59 18:31:00* Test Item Value Reference Range Interpretation [...] = 3257) Trace Negative - Negati ve [facility] Consult Notes Date/Time Note Provider Source 2023-01-12 00:12:43 Un9YmDT5B7hQA7wO1Unp U3FSibYj4bo67iXrjz/e/i HLmZNamQYTodhFVaGmaykz4788-23-15X44:12:43A ssociated Order(s): CONSULT GENERAL SURGERY TRAUMA/ACS Surgery Consult NoteAttending: KarrikRkatton for Consult: gallbladder fossa fluid collection s/p lap pasquale History of Present Illness:Nikko Dyson is a 27 year old female, with past medical history of nephrolithiasis, migraines, anxiety now presenting for surgical evaluation of RUQ pain associated with a 4.6 x 2.6 x 2.5cm gallbladder fossa fluid collection s/p elective lap pasquale for symptomatic cholelithiasis 1.5 months ago at OSH ([facility]). Pt states that she has had persistent RUQ pain with nausea and po intolerance along with intermittent chills and vomiting since surgery. Was seen by PCP and instructed to come to [facility] ED for further evaluation. Review [...] N/A 07/21/2019 Surgeon: Prasanna Vargas MD; Location: [facility] Delivery OR Location TUBAL LIGATION N/A 07/21/2019 Surgeon: Prasanna Vargas MD; Location: [facility] OR Location Family [...] skin once every month. 1 mL 3 Eejnsbjzny-Jptoydgqeuitw-Midb (FIORICET) 50-300-40 mg per capsule Take 1 [...] symptomatic cholelithiasis 1.5 months ago at OSH ([facility]).Plan:Admission to [facility] serviceConsult IR for percutaneous drainage [...] anorexia since lap pasquale at [facility] on 12/01/22 with noted venous bleeding from [...] Surgery, and Surgical Critical Care In-house Pager: [id number] [id number], Amy1.2.840.545049.1.13.104.2.7.2.238014Rly quuVraTT8356-04-50Z32:39:26Consult noteTXT1.2.840.228542.1.13.104.2.7.2.08905 9|[id number] for patient ayny23980-9Arnlbnm noteLNUTREHOBOTH MCK[facility] - [address] JuttQqhlbhnyeJzmqpjwboDLQD0290693096UKRBYJ ZVVSEAVSUYXDGJSO8997-44-75L68:39:261.2.840 .293385.1.72.3.15|1.2.840.483836.1.13.104. 2.7.2.727879_[id number] [facility] - [facility] History and Physical Notes Date/Time Note Provider Source 2023-01-12 01:05:04 eYIPvcyB+g+p5Msw1BFH 5IRg5ZERxl91HewlFJ0Bem Kghm+MgwXgqrfC/kYSLN5/7630-29-48N01:05:04F ormatting of this note might be different from the original.01/12/23 1:05 AM Please refer to consult note written by Rodolfo Riggins DO on 01/12/23 for complete H&P.NITESH Gandara-2 Surgery Resident ssociated attestation - Mirella Vergara MD - 01/12/2023 1:47 AM CDT Remgv65611-8Joywaqd and physical ocadHE6490388Lbxsvb, Amy1.2.840.358873.1.13.104.2.7.2.556811Szt dwoQeiFS6991-59-76T18:47:52History and physical noteTXT1.2.840.784693.1.13.104.2.7.2.61597 9|[id number] for patient asfz94063-1Plpbvca and physical noteLNUT[address] FhabZhueeefcuOfptderflHLQB6473737209OYHJLZ XFISIUOVWZTAYUCA3026-52-76G62:47:521.2.840 .147330.1.72.3.15|1.2.840.791253.1.13.104. 2.7.2.727879_[id number] [facility] Notes Date/Time Note Provider Source 2023-05-19 12:16:00 pGH9M75heOtHAGR84o2Y /VCC/ZAWghKBn HzU0H3jL4/AqEXEt5C89zqyerNfaE9T52 05-06-06T12:16:00 Pt given printed and verbal discharge [...] with steady gait, in no apparent distress. 26013-8[place]oh[place] department BojgJL7728-02-08P77:20:15Emergenc y department NoteTXT1.2.840.618130.1.13.104.2. 7.2.136409|[id number] for patient zvuu17666-7TmiaLJHZXOSNREJWkzxhdk ed C-CDA narrative textUT[address] JkgtHkqyasmboNfmqwqcxiBXTA4857112 645EVRRNKWGRSHSSVUOSKUYDP4467-01- 07T12:20:151.2.840.566489.1.72.3. 15|1.2.840.665792.1.13.104.2.7.2. 727879_[id number] [facility] 2023-05-19 08:50:00 4JgRqFCRVGHu9vOiDRFi nNKPF7m98oQNP 0BDA9Quf34ssF2f49hynWuPwJDp3/ui20 05-06-06T08:50:00 Patient came in with complaints of epigastric pain that radiates to her left shoulder associated with nausea and vomiting since a couple of weeks now. Patient states that she was worked up in [facility] ER 2 weeks ago and found nothing wrong, just referred to a GI doctor but she hasn't seen one because she has no insurance. 75252-4Xzhinmuco department Triage xjjaWE8146-20-82R23:01:49[facility] Triage noteTXT1.2.840.762801.1.13.104.2. 7.2.030445|[id number] for patient xuaj36220-7Tjvkosdpe department NoteLNNARRATIVEFormatted C-CDA narrative twfz415663936Jpwjwjle C Heredia RN[address] Gt[id number] 925WDOXRJLGXURXFVAGGIGUWP8477-15- 07T09:01:491.2.840.608633.1.72.3. 15|1.2.840.687326.1.13.104.2.7.2. [id number] Syedaalison Ruiz RN [facility] 2023-01-16 10:56:45 1i4zNHqRLjgXonaP0gnp zj9pJCQAaea5V VkY95Rpn8IkMrtCo47mi+YWqvyG0Nk508 02-02-06T10:56:45 TRANSITIONAL CARE MANAGEMENT ASSESSMENT01/16/2023 Nikko DysonKiqavjx163673RJwicd Nelia Dyson is a 27 year old /White female was admitted on 01/11/[address] She was discharged on 01/15/23 with discharge disposition of HR- Routine Discharge.Admitting Physician: Misty Steele Diagnosis: Postprocedural intraabdominal abscess [T81.43XA]Pt. Verbalized understanding discharge instructions. Plans to f/u with pcp.Linked Episodes Type: Episode: Status: Noted: Resolved: Last update: Updated by: TRANSITION OF CARE tcm Active 01/16/2023 01/16/2023 10:56 AM Marlys Odell LVN Comments: TCM Wjh-xcnh-vc-face outreach documentation:Discharge AssessmentChart Assessed: 01/16/23TCM Outreach Completed: [...] with the names or descriptions of any uarw-aqm-hqgzgxp or supplements you are currently taking?: YesSuppliesDid [...] or concerns at this time?: NoFuture Appointments: 88476-5Pmlzlpmqz encounter QriyWG2168-43-41W88:57:41Telephon e encounter NoteTXT1.2.840.348766.1.13.104.2. 7.2.642841|[id number] for patient [id number] ana Odell [address] PuimFdjwuceiaCcupkfefzNSIF1481177 797XWKKGUOQMNLKBWPSHPRWNO3322-83- 06T10:57:411.2.840.062479.1.72.3. 15|1.2.840.078122.1.13.104.2.7.2. 727879_[id number] Marlys Odell [facility] 2023-01-15 18:18:34 bRcSkRcczvt3vydFBxEn TvxjZAfxQkxGz vtiVEQkvQLPjmruUz/QnYGAYsO3ImXe71 02-02-05T18:18:34 Patient is cleared for discharge. Problem: Infection RiskGoal: Absence of infection01/15/20231817 by Vero Crews RNOutcome: Adequate for discharge01/15/20231817 by Vero Crews RNOutcome: Adequate for discharge01/15/2023 131 by Vero Crews RNOutcome: Progressing as expected Problem: PainGoal: Control of pain at or below patient's documented comfort goal01/15/2023 181 by Vero Crews RNOutcome: Adequate for discharge01/15/20231817 [...] by Vero Crews RNOutcome: Progressing as expected 68118-4Sdwn of care yyvaRE5343-43-34S09:18:58Plan of care noteTXT1.2.840.348991.1.13.104.2. 7.2.385441|[id number] for patient ltim87967-7JjteASKTLVQKEQ[address]TXTX[address] 529UUATZIXIRSOPEKCTAWQIRP0453-50- 05T18:18:581.2.840.998124.1.72.3. 15|1.2.840.236257.1.13.104.2.7.2. 727879_[id number] [facility] 2023-01-15 15:08:00 OTDeR3obChW/A9vKHNl6 gg0B5jgWB8pEU qdjJhQixShG9Je89YUw2QP99JIJQSSh96 02-02-055:08:00 Called outpatient pharmacy and spoke to Maggi. Stated pharmacy will bring patient's medications to her room within 45min to an hour. 98874-6Wztdc HgzmBU4580-42-99U23:49:16Nurse NoteTXT1.2.840.763092.1.13.104.2. 7.2.437725|[id number] for patient cfds50729-9Eobxi XepxPJ466531315Sgbhbfs R Hanegan RN[address]TXTX[address] 537PZNFLTZHKSQYOYDJDEOGPX4629-27- 05T15:49:161.2.840.872923.1.72.3. 15|1.2.840.568878.1.13.104.2.7.2. 727879_[id number] Vero Crews RN [facility] 2023-01-15 13:11:00 EmccorqtJ3t1F5LrNUHK xhJdqGLhAJlB2 TBzur/VpGC+Po23KTz/tRN4ZFlVEoVd53 02-02-053:11:00 Problem: Infection RiskGoal: Absence of infectionOutcome: Progressing as expected Problem: PainGoal: Control of pain at or below patient's documented comfort goalOutcome: Progressing as expectedGoal: Reduction in pain sensationOutcome: Progressing as expected Problem: Discharge PlanningGoal: Adequate for dischargeOutcome: Progressing as expectedGoal: Effective communicationOutcome: Progressing as expected 20861-5Bhij of care udpjRV9045-20-70G02:11:04Plan of care noteTXT1.2.840.006008.1.13.104.2. 7.2.118711|[id number] for patient wrve33166-7ZecbJANGPVGODW[address]vd[address]Gal[place]onTX[place] 517JNJJPNUWWKQUBZRBKVKDXI6169-07- 05T13:11:041.2.840.351262.1.72.3. 15|1.2.840.374167.1.13.104.2.7.2. 727879_[id number] [facility] 2023-01-15 06:25:22 A3rf4pCm5JRMXhcmmVLQ YFTefPiT9QY77 3WQuRx0LsirMohaTKwckoQahomAWUKa23 02-02-0506:25:22 Problem: Infection RiskGoal: Absence of infectionOutcome: Progressing as expected Problem: PainGoal: Control of pain at or below patient's documented comfort goalOutcome: Progressing as expectedGoal: Reduction in pain sensationOutcome: Progressing as expected Problem: Discharge PlanningGoal: Adequate for dischargeOutcome: Progressing as expectedGoal: Effective communicationOutcome: Progressing as expected 08038-0Xqxf of care ksneWA3059-40-40S32:25:24Plan of care noteTXT1.2.840.684282.1.13.104.2. 7.2.995983|[id number] for patient kdar94019-9RfvrVN606202257Yxreb M Andrews RNUT[address]TXTX[address] 062FDEDDIZQPORQABBEAKOTSC5775-22- 05T06:25:241.2.840.677873.1.72.3. 15|1.2.840.421445.1.13.104.2.7.2. 727879_[id number] Katy Means RN [facility] 2023-01-14 09:27:52 buXhs/sdj7T8tM/54kjR xOAu+6WWF58RI A8PS6TK9VRp0yq6QTeke1o5BBFuMZcy49 03-02-04T09:27:52 Problem: Infection RiskGoal: Absence of infectionOutcome: Progressing as expected Problem: PainGoal: Control of pain at or below patient's documented comfort goalOutcome: Progressing as expectedGoal: Reduction in pain sensationOutcome: Progressing as expected Problem: Discharge PlanningGoal: Adequate for dischargeOutcome: Progressing as expectedGoal: Effective communicationOutcome: Progressing as expected 72191-8Ydjk of care fburPB0909-06-80H80:27:55Plan of care noteTXT1.2.840.612099.1.13.104.2. 7.2.950181|[id number] for patient ovxo00700-8EhdxQY381118659Igua W Martinez RNUT[address]TXTX[address] 839SFNUCZVPGQATYZIZXPAXIA6102-99- 04T09:27:551.2.840.262833.1.72.3. 15|1.2.840.416685.1.13.104.2.7.2. 727879_[id number] Charlesyuko Win RN [facility] 2023-01-13 22:20:47 bMZPSIPE7Bt4az3/ACpd APGnQ2hTwo6Jj Z1EDDON/Zy9RKMa76SrBrIrIYB1bWLp76 02-02-03T22:20:47 Notified MD by page due to double dose of Tylenol being given. Per MD Brito no more Tylenol to be given for tonight. 88312-0Aujrf NwldWE9130-40-44L45:25:15Nurse NoteTXT1.2.840.662665.1.13.104.2. 7.2.113068|[id number] for patient yxuf32985-7ZbbgANGHZVNVMW[address]vdGal[address]onGalvestonTXTX[address] 587JPQBVFBHDXAKJKRMRMSXMC3866-74- 03T22:25:151.2.840.820156.1.72.3. 15|1.2.840.274448.1.13.104.2.7.2. 727879_[id number] [facility] 2023-01-13 21:55:20 Pe8LJDvwEX4JFtadGlD/ S4MbIlKDSSZ36 1tK+R72Syp43pWj9qWAiMSa3r3G8AqO46 02-02-03T21:55:20 Problem: Infection RiskGoal: Absence of infectionOutcome: Progressing as expected Problem: PainGoal: Control of pain at or below patient's documented comfort goalOutcome: Progressing as expectedGoal: Reduction in pain sensationOutcome: Progressing as expected Problem: Discharge PlanningGoal: Adequate for dischargeOutcome: Progressing as expectedGoal: Effective communicationOutcome: Progressing as expected 01644-8Ftyr of care dbyfWL3081-31-54T21:55:38Plan of care noteTXT1.2.840.289917.1.13.104.2. 7.2.337151|[id number] for patient wzur15459-4WdxcQZTMCHCKRT47 [address]TXTX[address] 210EOKDWWCTPUYKGLDYPTPORH5908-78- 03T21:55:381.2.840.833837.1.72.3. 15|1.2.840.267357.1.13.104.2.7.2. 727879_[id number] [facility] 2023-01-13 08:20:43 YOftsdgina/CmabPKxI6W5 4JKvYDgymJQ8z Z+smTbsQXubIjZho7FkxY/Kk1ezyU6435 02-02-03T08:20:43 Problem: Infection RiskGoal: Absence of infectionOutcome: Progressing as expected Problem: PainGoal: Control of pain at or below patient's documented comfort goalOutcome: Progressing as expectedGoal: Reduction in pain sensationOutcome: Progressing as expected Problem: Discharge PlanningGoal: Adequate for dischargeOutcome: Progressing as expectedGoal: Effective communicationOutcome: Progressing as expected 22995-6Rqpm of care xjphSJ5856-99-91V74:20:46Plan of care noteTXT1.2.840.466394.1.13.104.2. 7.2.166738|0788729285VQDisezvmex for patient neym72000-2JkcvDKUYQBBIBY47 [address]TXTX[address] 389VISLFALWFUIIEIIDEURBNV4818-65- 03T08:20:461.2.840.981696.1.72.3. 15|1.2.840.261589.1.13.104.2.7.2. 727879_[id number] [facility] 2023-01-12 20:10:08 FjBPEY6WP8ucg9JTaunY 5bxqtM/oLtLn3 D19v+7bdyWuP1hUN+WzbrRUxz56zujJ21 02-02-02T20:10:08 Problem: Infection RiskGoal: Absence of infectionOutcome: Progressing as expected Problem: PainGoal: Control of pain at or below patient's documented comfort goalOutcome: Progressing as expectedGoal: Reduction in pain sensationOutcome: Progressing as expected Problem: Discharge PlanningGoal: Adequate for dischargeOutcome: Progressing as expectedGoal: Effective communicationOutcome: Progressing as expected 37517-3Nayq of care jvcpFB7463-82-67Y01:10:14Plan of care noteTXT1.2.840.601086.1.13.104.2. 7.2.127927|[id number] for patient qzvi76481-2DyvyWEJAPHBNBA[address] WfcdOeabyzjhaUinchxlwnMANS9765023 788GOXEVGIMJBUERQSEQKJUGQ0923-56- 02T20:10:141.2.840.433837.1.72.3. 15|1.2.840.666993.1.13.104.2.7.2. 727879_[id number] [facility] 2023-01-12 09:28:38 vDEB5n6ZiNIz61RLAO+m TyHU2VtEWVmFd 7bxYUEV0EdJ9b5XG9QxC2y8/S4ew7aA41 02-02-02T09:28:38 Problem: Infection RiskGoal: Absence of infectionOutcome: Progressing as expected Problem: PainGoal: Control of pain at or below patient's documented comfort goalOutcome: Progressing as expectedGoal: Reduction in pain sensationOutcome: Progressing as expected Problem: Discharge PlanningGoal: Adequate for dischargeOutcome: Progressing as expectedGoal: Effective communicationOutcome: Progressing as expected 39755-9Lzpm of care bstxAF7153-48-69C15:28:40Plan of care noteTXT1.2.840.509577.1.13.104.2. 7.2.371646|3808631740IOMnvwwawdc for patient gbyn97614-3MzaeCMFGKBIPWM[address] [place], [place] [address] 175EEWYWIPXQSDCNGAZIWRAIA8864-41- 02T09:28:401.2.840.988748.1.72.3. 15|1.2.840.761122.1.13.104.2.7.2. 727879_[id number] [facility] 2023-01-12 05:17:00 DAPEcHxK0uTNPsFC+WxE teT1nk45ul0zs d85JsEDPxDUaYzuB45A9jc+yfuo2jJP27 02-02-02T05:17:00 Problem: Infection RiskGoal: Absence of infectionOutcome: Progressing as expected Problem: PainGoal: Control of pain at or below patient's documented comfort goalOutcome: Progressing as expectedGoal: Reduction in pain sensationOutcome: Progressing as expected Problem: Discharge PlanningGoal: Adequate for dischargeOutcome: Progressing as expectedGoal: Effective communicationOutcome: Progressing as expected 27306-9Hoys of care damnZQ3168-68-84C54:17:08Plan of care noteTXT1.2.840.217780.1.13.104.2. 7.2.427335|5136619412RTJgihxdjaz for patient rern52666-4BaekVRQBYKXCAP[address] [place], [place] [address] 179SYXRZCZXYBIERAZVBLFPQX6347-26- 02T05:17:081.2.840.858974.1.72.3. 15|1.2.840.257036.1.13.104.2.7.2. 727879_[id number] [facility] 2023-01-12 01:43:06 k+iU3uRt6/1+CqHTAYxb RCG7rlhimQHPx ubs3hgUXio9i3zBJyzM0JhDT8M0gOCI37 02-02-02T01:43:06 Report to lisy CURRIE on 9C. Pt awaiting transport 30080-1Qkyyxkwio department WcyfYJ6548-94-11M36:43:18[facility] NoteTXT1.2.840.702727.1.13.104.2. 7.2.573223|4505706929RRBfdtzdhds for patient dfxq66453-9YgxjCN355078480Gktet Bakari CURRIE[address] CkysVtmnsgrgrNnceicysbJWMN6322326 122HSDQAYRQMCPGAYZCFWJYLT8833-45- 02T01:43:181.2.840.923613.1.72.3. 15|1.2.840.080574.1.13.104.2.7.2. 727879_[id number] Melvin Villegas RN [facility] 2023-01-12 01:10:30 B0Ny19BQ6mLWu9SLNlfm o9sv4ZkddCdq8 x9kcgXO/6bOmcwbAs1raxsvQVDtoC3R65 02-02-02T01:10:30 Attempted report, nurse unavailable, left callback number 70507-9Abffqeubi department YstqPT9450-28-96U00:10:42[facility] NoteTXT1.2.840.741238.1.13.104.2. 7.2.012192|6288599595XVTdyxkczfk for patient zeny05807-9AjowZYMFXDWNGR47 [address]TXTX[address] 630AHSNOYLUOVAFLISCWYUZYR6086-27- 02T01:10:421.2.840.671641.1.72.3. 15|1.2.840.745640.1.13.104.2.7.2. 727879_[id number] [facility] 2023-01-12 00:24:49 B7ENdfz5sVs348rOhDT+ zoya/IQqq1kC0O t614pkp2PM+Carrera+N2kxoSh1xf0VxQHGS17 02-02-02T00:24:49 Surgery at bedside 69479-9Ozfyadfjt department FzsgEA0461-10-70V54:24:56[facility] NoteTXT1.2.840.299276.1.13.104.2. 7.2.521808|9104475618MORtzogydlj for patient xive18887-9AjzqVHFRYIFNMB47 [address]TXTX[address] 957UCNBGZZZLJJQJTYKLXXIBU2847-23- 02T00:24:561.2.840.973704.1.72.3. 15|1.2.840.040554.1.13.104.2.7.2. 727879_[id number] [facility] 2023-01-11 23:08:11 9V2igVoOMR3SeJOk6XV8 r8gDbLrzmk/r5 XKORM4IErk9sz5pm1wXPHO8W4vhijAm10 02-02-01T23:08:11 made aware of pt increased pain and nausea 03317-2Qhnjaxdzc department ImklIK3962-57-17C19:08:21[facility] NoteTXT1.2.840.349244.1.13.104.2. 7.2.096410|5811283413SIRfypywrda for patient xhau11138-9NoxzGLYREYJBHL47 [address]TXTX[address] 340NOVSRREXIEBNGPFHVBCIKY7592-47- 01T23:08:211.2.840.857474.1.72.3. 15|1.2.840.013891.1.13.104.2.7.2. 727879_[id number] [facility] 2023-01-11 22:34:38 VJoOrfypv0AB6xuEHmcx 7Lv+m9Ebbbi6Y 1RC7fh6s2dnRoLOItuUGHAiDB0zLOOY28 02-02-01T22:34:[address], warm blanket given 20655-9Sdxzpamco[address] YitmLW5964-72-70U02:34:49[facility] NoteTXT1.2.840.307063.1.13.104.2. 7.2.101495|9921717851IEJlcmewxmr for patient bghk27471-4BvgdXTMJAGHKZR47 [address]TXTX[address] 803GABNASWUNXAYXGLTXXICKN4210-40- 01T22:34:491.2.840.826750.1.72.3. 15|1.2.840.405109.1.13.104.2.7.2. 727879_[id number] [facility] 2023-01-11 22:18:01 IkaDiqPJUrbvyy4r0B9W 07CywhcKONR6y X0mdfku+yvKvYw5BvyDzyhjig1OARH066 02-02-01T22:18:[address] scan 02938-3Mocrbxmcf department PkerVQ6498-00-61N12:18:08[facility] NoteTXT1.2.840.050017.1.13.104.2. 7.2.654055|6722852037BFGfcyevumr for patient yhvo84841-7DrrmKNLZFGWVDW[address]vdGalveston[place]vestonTXTX[address] 266LINLEKGSAFCZCHYICXNUDQ7640-03- 01T22:18:081.2.840.554026.1.72.3. 15|1.2.840.953461.1.13.104.2.7.2. 727879_[id number] [facility] 2023-01-11 21:30:08 c4u4neD1nAgpTwuDx240 TP/wa57NzUdUj j2C6VX4ILb+y/CBOYEvProvxJpfS43R85 02-02-01T21:30:08 Nikko Dyson is a 27 year [...] liver. Denies vomiting, denies blood in stool. 07711-0Emruxpzdd department RouoCA0818-91-34C67:32:39[facility] NoteTXT1.2.840.815282.1.13.104.2. 7.2.833179|5832100711TAKglmlqlbg for patient rpyv08235-1PwgqMMATHMSQCP08 [address]TXTX[address] 889MNXYMHFQBFOXSXZFMFGVOP2514-94- 01T21:32:391.2.840.218488.1.72.3. 15|1.2.840.075486.1.13.104.2.7.2. 727879_[id number] [facility] 2023-01-11 21:03:38 2cW1YIQ5O47Oyxh05sKI d5/1CrDr4wLFi +lx3gLDyFvcggN2QRW+N1E02Acb5sCB93 02-02-01T21:03:38 Nikko Dyson is a 27 year old female here today c/o abdominal pain x 2 days. Pt denies N/V but reports diarrhea. Pt reports "9/10" pain at this time. Pt reports pain travels down right side abdomen. Pt is A&Ox4, NAD Noted. RR even/unlabored. 62589-0Akctxtskp department Triage cgnfNN4641-74-92L38:05:23Emergen y department Triage noteTXT1.2.840.559269.1.13.104.2. 7.2.856462|2028332692ZLKqgyspzhq for patient bpma65530-9Jodevlrez department Note[address] 635BKDETPDTQZBFNHWPIQTVSZ9516-01- 01T21:05:231.2.840.136624.1.72.3. 15|1.2.840.843899.1.13.104.2.7.2. 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 Due to the worsening discomfort patient has, for further evaluation at [facility]. Patient states that during her [...] when she sits up. Patient has discontinued Hayden and anxiety medication due to concern for her liver. She is only used a heating pad for her symptoms with minimal improvement.History provided by: PatientLanguage certified court interpreter used: No Past Medical History/Immunizations:Past Medical History: [...] N/A 07/21/2019 Surgeon: Prasanna Vargas MD; Location: [facility] OR Location TUBAL LIGATION N/A 07/21/2019 Surgeon: Prasanna Vargas MD; Location: [facility] OR Location Review [...] 0 - 220 U/L COMP. METABOLIC PANEL (87974) TOTAL BETA HCG ASSAY EXTRA TUBE ORANGE EXTRA TUBE LAV EKG:If EKG completed, see Procedure Note. Orders and Treatments:Orders Placed This Encounter Procedures CT ABDOMEN PELVIS W CONTRAST POCT TEST URINALYSIS LIPASE COMP. METABOLIC PANEL (72850) TOTAL BHCG (QUANTITATIVE) Orders Placed This Encounter [...] mouth every 6 (six) hours as needed. SIXSIFTRZM-AOFHNRYOIADTL-CPKA (FIORICET) 50-300-40 MG PER CAPSULE Take 1 [...] in the Gallbladder fossa, post-recent cholecystectomy in [place].General surgery was consulted and admitted the patient for further workup and management. 52190-1Jkgtzbcoe Emergency department BoqjOG8555251Zpuexf, Jeremy1.2.840.787652.1.13.104.2.7 .2.004259FlluawPlxuzbXG5336-14-48 T07:17:19Physician Emergency department NoteTXT1.2.840.356713.1.13.104.2. 7.2.993566|[id number] for patient lirk08355-2Cgevjnsid department NoteLNUT[address] ExdsRsquxybrrMemauuyafRYXS1280903 031VBRLVYZNFLDVMIPHZVLWJM0972-53- 02T07:17:191.2.840.448961.1.72.3. 15|1.2.840.909011.1.13.104.2.7.2. 727879_[id number] [facility] 2022-12-03 08:57:03 /lOh77///I9yV8Xh1Q IGrdpaNq2Jw+B lSfg7kd84Auww+b/C36TgvGvM5Oynk223 03-12-23T08:57:03 Patient has an appointment 12/12/22.Blayne Silva RN 12/03/2022 8:57 AM 73957-8Pgqaenfcb encounter LrwqLB5224-56-63Z18:57:18Telephon e encounter NoteTXT1.2.840.484547.1.13.104.2. 7.2.483978|[id number] for patient kiqv688396943Mvtxfot Collins [address] ZoatXkozfktkoSffdnixyzDBBG6156751 925FGZMWOEIHOMEGQQFSNROGV9923-96- 24T08:57:181.2.840.471907.1.72.3. 15|1.2.840.282206.1.13.104.2.7.2. 727879_[id number] Blayne Silva [facility]
[2023-06-19 09:10] LABS: Absolute Lymphocytes (CBC) 1.9 K/uL (0.7-4.9); Hematocrit 40.6 % (36.0-45.0); Lymphocytes % 27.8 % (15.3-44.8); MCV 85.4 fL (80-100); MPV 7.2 fL (7.6-11.3); Platelets 423 thou/uL (152-406); RBC Red Blood Cell Count 4.75 M/uL (3.86-4.86)
[2023-06-19 09:19] LABS: Specific Gravity 1.006 (1.005-1.030); Urine Bacteria None Seen /HPF (<20); Urine Bilirubin NEGATIVE (Negative); Urine Blood 1+ (Negative); Urine Clarity Turbid (Clear); Urine Color Colorless (Yellow); Urine Glucose NEGATIVE (Negative); Urine Protein NEGATIVE (Negative); Urine RBC <5 /HPF (None Seen); Urine Urobilinogen Normal (Normal)
[2023-06-19 09:28] LABS: Bilirubin Total 0.6 mg/dL (0.2-1.0); Potassium 3.3 mEq/L (3.5-5.1); Protein, Total 8.5 g/dL (6.4-8.2)
[2023-06-19 09:31] LABS: Protime INR 1.03
--- NOTE | 2023-06-19 10:49 | RAD REPORT ---
EXAM DESCRIPTION: CTAbdomen Pelvis W Contrast - 06/19/2023 10:17 am CLINICAL HISTORY: bilateral flank pain COMPARISON: Abdomen Pelvis W Contrast dated 05/27/2023; Abdomen Pelvis W Contrast dated 3; Abdomen Pelvis W Contrast dated 03/27/2023; Abdomen Pelvis W Contrast dated 12/05/2022 TECHNIQUE: CT of the abdomen and pelvis was performed with IV contrast. All CT scans are performed using dose optimization technique as appropriate and may include automated exposure control or mA/KV adjustment according to patient size. FINDINGS: Lower chest: No acute abnormality. Liver: No acute abnormality or suspicious lesions. Biliary: Cholecystectomy Stomach: No significant focal abnormality. Duodenum: No significant focal abnormality. Pancreas: No significant abnormality. Spleen: No significant abnormality. Adrenal: No suspicious lesions. Kidney/ureter: Right-sided pelvicaliectasis. Punctate stone in the upper pole right kidney measuring 2 millimeters. No ureteral calculi. Retroperitoneum: No retroperitoneal adenopathy. Vascular: No aneurysm. Bowel: Mild wall thickening and hyperenhancement of the descending colon and sigmoid.. This is new fr om prior. Normal appendix. Peritoneum: No ascites or free air. Bladder: Grossly unremarkable. Reproductive: No adnexal masses. Bones: No acute fracture. Other: n/a IMPRESSION: 1. Nonobstructing right renal calculus. Right-sided pelvicaliectasis but no hydronephros is. The mild inflammatory changes associated with the kidneys and striated appearance on the prior CT has resolved. 2. Prominence of the descending colon wall and sigmoid with questionable mild hyperenhancement could reflect a nonspecific colitis.
--- NOTE | 2023-06-19 11:22 | EDPHYS ---
Physician Documentation [facility] Name: Natanael Dyson Age: 28 yrs Sex: Female : 1995 Arrival Date: 06/19/2023 Time: 08:25 Bed 5 Private MD: ED Physician Neto Dean HPI: 06/19 09:03 This 28 yrs old Female presents to ER via Ambulatory with complaints of Low Back Pain, ms3 Abdominal Pain. 09:03 28-year-old female past medical history of anxiety, breast cancer, depression, kidney ms3 stones, nephritis presents to the emergency department for bilateral flank pain, fever. Patient states she left from the hospital AMA 2 weeks ago after having a kidney infection and COVID. Patient states her pain is 10/10 and located in the right flank greater than the left. Patient states pain is worse with walking and pain. Patient notes she had a temperature of 103 at 4:30 AM. Patient denies any alleviating factors. Historical: - Allergies: 08:35 Compazine; ll1 08:35 Haldol; ll1 08:35 Reglan; ll1 08:35 Toradol; ll1 - PMHx: 08:35 Anxiety; breast cancer (Ligation of fallopi); depressive disorder; Kidney stone; ll1 nephritis (Ligation of fallopi); - PSHx: 08:35 Cholecystectomy; Ligation of fallopian tube; ll1 - Immunization history:: Adult Immunizations up to date. - Social history:: Smoking status: Patient reports the use of cigarette tobacco products, denies chronic smoking, but will smoke occasionally. ROS: 09:03 Constitutional: Negative for fever, and chills. Neck: Negative for injury, pain, and ms3 swelling, Cardiovascular: Negative for chest pain, and palpitations. Respiratory: Negative for shortness of breath, cough, wheezing, and pleuritic chest pain, MS/Extremity: Negative for injury and deformity, Skin: Negative for injury, rash, and discoloration, 09:03 Abdomen/GI: Positive for bilateral flank pain, 09:03 All other systems are negative, Exam: 09:03 Constitutional: This is a well developed, well nourished patient who is awake, alert, ms3 and in no acute distress. Head/Face: Normocephalic, atraumatic. Neck: Trachea midline, no cervical lymphadenopathy. Supple, full range of motion without nuchal rigidity, or vertebral point tenderness. No Meningismus. Chest/axilla: Normal chest wall appearance and motion. Nontender with no deformity. Cardiovascular: Regular rate and rhythm with a normal S1 and S2. No gallops, murmurs, or rubs. Normal PMI, no JVD. No pulse deficits. Respiratory: Lungs have equal breath sounds bilaterally, clear to auscultation and percussion. No rales, rhonchi or wheezes noted. No increased work of breathing, no retractions or nasal flaring. Abdomen/GI: Soft, non-tender, with normal bowel sounds. No distension or tympany. No guarding or rebound. No evidence of tenderness throughout. Skin: Warm, dry with normal turgor. Normal color with no rashes, no lesions, and no evidence of cellulitis. MS/ Extremity: Pulses equal, no cyanosis. Neurovascular intact. Full, normal range of motion. 09:03 Back: CVA tenderness, that is moderate, is noted bilaterally, 10:46 ECG was reviewed by the Attending Physician. ms3 Vital Signs: 08:41 BP 140 / 93; Pulse 112; Resp 18; Temp 97.3; Pulse Ox 100% ; Weight 58.97 kg; Height 5 ll1 ft. 1 in. ; Pain 10/10; 10:11 BP 127 / 84; Pulse 105; Resp 15 S; Pulse Ox 100% on R/A; kc6 08:41 Body Mass Index 24.56 (58.97 kg, 154.94 cm) ll1 08:41 Pain Scale: Adult ll1 MDM: 08:48 Patient medically screened. ms3 09:03 Differential diagnosis: UTI, Pyelonephritis vs Kidney stone. ms3 09:28 External Records Reviewed: Inpatient record: Admission H\T\P performed on June 12 ms2023 showed patient with pyelonephritis/ascending UTI, COVID-19 infection, acute pain, CKD stage II, depression, anxiety, bipolar, oppositional defiant, GERD, nausea.. 11:21 Data reviewed: vital signs, nurses notes, lab test result(s), EKG, radiologic studies, ms3 CT scan, and as a result, I will discharge patient. Consideration of Admission/Observation Escalation of care including admission/observation considered. No signs of pyelonephritis in the emergency department. I considered the following discharge prescriptions or medication management in the emergency department Medications were administered in the Emergency Department. See MAR. Independent interpretation of the following test(s) in the Emergency Department EKG: See my EKG interpretation above. Counseling: I had a detailed discussion with the patient and/or guardian regarding the historical points, exam findings, and any diagnostic results supporting the discharge/admit diagnosis, lab results, radiology results, the need for outpatient follow up, to return to the emergency department if symptoms worsen or persist or if there are any questions or concerns that arise at home. Response to treatment: the patient's symptoms have markedly improved after treatment, and as a result, I will discharge patient. Special discussion: Based on the patient's Hx, exam, and Dx evaluation, there is no indication for emergent surgery or inpatient Tx. It is understood by the patient/guardian that if the Sx's persist or worsen they need to return immediately for re-evaluation. ED course: On reevaluation patient improved, alert and orient x 4, no apparent distress, nontoxic-appearing, ambulatory number department, speaking full sentences. Discussed CT findings and labs with patient. Patient to follow-up with primary care physician in 2 to 3 days. Patient understands and agrees with plan. All questions were answered. Return precautions discussed include worsening symptoms, or any other concerns. 06/19 08:50 Order name: Blood Culture Adult (2) 3 06/19 08:50 Order name: CBC with Diff; Complete Time: 09:47 ms3 06/19 08:50 Order name: CMP; Complete Time: 09:47 ms06/19 08:50 Order name: Lactate w/ 2H reflex if indic.; Complete Time: 09:47 ms3 06/19 08:50 Order name: Protime (+inr); Complete Time: 09:47 ms06/19 08:50 Order name: Ptt, Activated; Complete Time: 09:47 ms06/19 08:50 Order name: Urinalysis w/ reflexes; Complete Time: 09:47 ms3 06/19 09:48 Order name: CT Abd/Pelvis - IV Contrast Only; Complete Time: 11:19 ms3 06/19 08:50 Order name: EKG; Complete Time: 08:50 ms3 06/19 08:50 Order name: Accucheck; Complete Time: 09:05 ms3 06/19 08:50 Order name: Cardiac monitoring; Complete Time: 09:23 ms3 06/19 08:50 Order name: EKG - Nurse/Tech; Complete Time: 09:23 ms3 06/19 08:50 Order name: IV Saline Lock - Large Bore; Complete Time: 09:05 ms3 06/19 08:50 Order name: Labs collected and sent; Complete Time: 09:23 ms3 06/19 08:50 Order name: O2 Per Protocol; Complete Time: : ms3 06/19 08:50 Order name: O2 Sat Monitoring; Complete Time: : ms3 06/19 08:50 Order name: Vital Signs; Complete Time: : ms3 EC:46 Rate is 119 beats/min. Rhythm is regular. QRS [place] is Normal. [place] interval is normal. ms3 QRS interval is normal. Clinical impression: Sinus tachycardia. Interpreted by me. Reviewed by me. Administered Medications: 09:48 Drug: NS 0.9% IV (30 ml/kg) 30 ml/kg IV at bolus once; Sepsis Protocol Route: IV; Rate: kc6 bolus; Site: left antecubital; 09:59 Drug: morphine IVP or IV 4 mg IVP once over 4 mins Route: IVP; Infused Over: 4 mins; ko1 Site: right forearm; 11:36 Drug: HYDROcodone-acetaminophen PO 5 mg-325 mg 1 tabs PO once Route: PO; kc6 Disposition Summary: 06/19/23 11:21 Discharge Ordered Notes: Location: Home ms3 Condition: Stable ms3 Diagnosis - Bialteral Flank pain ms3 Followup: ms3 - With: Francesco Mark DO - When: 2 - 3 days - Reason: Recheck today's complaints Discharge Instructions: - Discharge Summary Sheet ms3 - Flank Pain, Adult ms3 Forms: - Medication Reconciliation Form ms3 - Thank You Letter ms3 - Antibiotic Education ms3 - Prescription Opioid Use ms3 - Patient Portal Instructions ms3 - Leadership Thank You Letter ms3 Signatures: Dispatcher [employer] Brandi Chang RN RN ll1 Neto Dean DO DO ms3 Daysi Anthony RN RN kc6 Pam Frausto RN RN ko1
--- NOTE | 2023-06-19 11:22 | ER ---
Nurse's Notes [facility] Name: Natanael Dyson Age: 28 yrs Sex: Female : 1995 Arrival Date: 06/19/2023 Time: 08:25 Bed 5 Private MD: Diagnosis: Bialteral Flank pain Presentation: 06/19 08:40 Chief complaint: Patient states: Left AMA from admission upstairs recently. Still has ll1 severe R sided "kidney" pain, nausea, fever. 08:41 Coronavirus screen: Client denies travel out of the [place] in the last 14 days. At this ll1 time, the client does not indicate any symptoms associated with coronavirus-19. Ebola Screen: Patient denies travel to an Ebola-affected area in the 21 days before illness onset. Initial Sepsis Screen: Does the patient meet any 2 criteria? No. Patient's initial sepsis screen is negative. Does the patient have a suspected source of infection? Yes: Dysuria/Frequency/Urgency/UTI Acute abdominal pain. Risk Assessment: Do you want to hurt yourself or someone else? Patient reports no desire to harm self or others. Onset of symptoms was June 14, 2023. 08:41 Method Of Arrival: Ambulatory ll1 08:41 Acuity: THIERNO 3 ll1 Historical: - Allergies: 08:35 Compazine; ll1 08:35 Haldol; ll1 08:35 Reglan; ll1 08:35 Toradol; ll1 - PMHx: 08:35 Anxiety; breast cancer (Ligation of fallopi); depressive disorder; Kidney stone; ll1 nephritis (Ligation of fallopi); - PSHx: 08:35 Cholecystectomy; Ligation of fallopian tube; ll1 - Immunization history:: Adult Immunizations up to date. - Social history:: Smoking status: Patient reports the use of cigarette tobacco products, denies chronic smoking, but will smoke occasionally. Screenin:45 [facility] ED Fall Risk Assessment (Adult) History of falling in the last 3 months, kc6 including since admission No falls in past 3 months (0 pts) Confusion or Disorientation No (0 pts) Intoxicated or Sedated No (0 pts) Impaired Gait No (0 pts) Mobility Assist Device Used No (0 pt) Altered Elimination No (0 pt) Score/Fall Risk Level 0 - 2 = Low Risk. Abuse screen: Denies threats or abuse. Denies injuries from another. Nutritional screening: No deficits noted. Tuberculosis screening: No symptoms or risk factors identified. Assessment: 08:45 General: Appears in no apparent distress. uncomfortable, well groomed, well developed, kc6 Behavior is cooperative, anxious, Reports chills for fever for feeling ill for. Neuro: Level of Consciousness is awake, alert, obeys commands, Oriented to person, place, time, situation, Appropriate for age. Cardiovascular: Denies chest pain, Heart tones S1 S2 present Capillary refill < 3 seconds Rhythm is sinus tachycardia. Respiratory: Airway is patent Trachea midline Respiratory effort is even, unlabored, Respiratory pattern is regular, symmetrical. GI: Abdomen is flat, non-distended, Bowel sounds present X 4 quads. Abd is soft X 4 quads Abdomen is tender to palpation in right upper quadrant and right lower quadrant Reports nausea, vomiting, Patient currently denies diarrhea. : No signs and/or symptoms were reported regarding the genitourinary system. Urine is clear. EENT: No signs and/or symptoms were reported regarding the EENT system. Derm: No signs and/or symptoms reported regarding the dermatologic system. Skin is intact, is healthy with good turgor, Skin is pink, warm \\T\\ dry. Musculoskeletal: No signs and/or symptoms reported regarding the musculoskeletal system. Circulation, motion, and sensation intact. Capillary refill < 3 seconds, Range of motion: intact in all extremities. 09:45 Reassessment: Patient appears in no apparent distress at this time. No changes from kc6 previously documented assessment. Patient and/or family updated on plan of care and expected duration. Pain level reassessed. Patient is alert, oriented x 3, equal unlabored respirations, skin warm/dry/pink. Vital Signs: 08:41 BP 140 / 93; Pulse 112; Resp 18; Temp 97.3; Pulse Ox 100% ; Weight 58.97 kg; Height 5 ll1 ft. 1 in. ; Pain 10/10; 10:11 BP 127 / 84; Pulse 105; Resp 15 S; Pulse Ox 100% on R/A; kc6 08:41 Body Mass Index 24.56 (58.97 kg, 154.94 cm) ll1 08:41 Pain Scale: Adult ll1 ED Course: 08:27 Patient arrived in ED. im 08:32 Dean, Neto, DO is Attending Physician. ms3 08:35 Arm band placed on Patient placed in an exam room, on a stretcher. ll1 08:43 Daysi Anthony, ROSEY is Primary Nurse. kc6 08:44 Triage completed. ll1 08:45 Patient has correct armband on for positive identification. Bed in low position. Call kc6 light in reach. Side rails up X 1. Client placed on continuous cardiac and pulse oximetry monitoring. NIBP monitoring applied. supervisor phosphoric acid on. 09:23 Inserted saline lock: 22 gauge in left antecubital area, using aseptic technique. Blood kc6 collected. Patient maintains SpO2 saturation greater than 95% on room air. 10:09 Inserted saline lock: 22 gauge in right forearm, using aseptic technique. Blood kc6 collected. 10:19 CT Abd/Pelvis - IV Contrast Only In Process Unspecified. EDMS 11:20 Francesco Mark DO is Referral Physician. ms3 11:33 No provider procedures requiring assistance completed. IV discontinued, intact, ap3 bleeding controlled, No redness/swelling at site. Pressure dressing applied. Administered Medications: 09:48 Drug: NS 0.9% IV (30 ml/kg) 30 ml/kg IV at bolus once; Sepsis Protocol Route: IV; Rate: kc6 bolus; Site: left antecubital; 09:59 Drug: morphine IVP or IV 4 mg IVP once over 4 mins Route: IVP; Infused Over: 4 mins; ko1 Site: right forearm; 11:36 Drug: HYDROcodone-acetaminophen PO 5 mg-325 mg 1 tabs PO once Route: PO; kc6 Medication: 11:33 VIS not applicable for this client. ap3 Outcome: 11:21 Discharge ordered by MD. ms3 11:33 Discharged to home ambulatory, ap3 11:33 Condition: good 11:33 Discharge instructions given to patient, Instructed on discharge instructions, follow up and referral plans. Demonstrated understanding of instructions, follow-up care, 11:37 Patient left the ED. kc6 Signatures: Dispatcher [employer] EDMS Ileana Negrete RN RN ap3 Brandi Cotter RN RN ll1 Neto Dean DO DO ms3 Daysi Anthony RN RN kc6 Pam Frausto RN RN ko1 Nettles, Margie im
--- NOTE | 2023-06-20 13:26 | EKG ---
Test Date: 2023-06-19 Test Time: 09:17:10 Intelligence Chief: BRANDON MEASUREMENT RESULTS: Intervals: Rate: 119 AR: 122 QRSD: 72 QT: 314 QTc: 441 Eclectic: P: 51 AR: 122 QRS: 33 T: 41 INTERPRETIVE STATEMENTS: Sinus tachycardia Otherwise normal ECG Compared to ECG 05/29/2023 04:55:32 Sinus bradycardia no longer present Sinus arrhythmia no longer present Electronically Signed On 06-20-23 13:22:33 TILTING SAW OPERATOR by Antoni Nixon
[2023-06-20 20:54] VITALS: BP 127/84; TEMP 97.3; O2SAT 100
== END ==
LOC: ER 08:25
DX: R10.9 Unspecified abdominal pain (principal)
CPT/HCPCS: 36415; 74177; 80053; 81001; 83605; 85025; 85610; 85730; 87040; 93005; J7030; Q9967

== ENCOUNTER → 2023-07-09 | Emergency (ER) | payer OTHER ==
[~2023-07-09] MED LIST changes: +DIPHENHYDRAMINE 50 MG/ML VIAL ONE; -HYDROCODONE/APAP 5/325 MG TAB ONE; +NA CHLORIDE 0.9% 1,000 ML ONE; -NA CHLORIDE 0.9% 2,000 ML ONE; +ONDANSETRON 4 MG/2 ML VIAL ONE; +PROMETHAZINE INJ 25 MG/ML AMP ONE
--- OUTSIDE RECORDS SUMMARY | 2023-07-09 08:26 | XMS REPORT | Continuity of Care Document ---
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 50 mg tablet 3-0 -23 00:00: 00 Yes 50mg Take 1 tablet by mouth every 6 (six) hours as needed. [facility] hydrOXYzine 50 mg tablet 3-0 -23 00:00: 00 Yes 50mg Take 1 tablet by mouth every 6 (six) hours as needed. [facility] mirtazapine 15 mg tablet 3-0 5-12 00:00: 00 Yes 15mg Take 1 tablet by mouth at bedtime. [facility] mirtazapine 15 mg tablet 3-0 5-12 00:00: 00 Yes 15mg Take 1 tablet by mouth at bedtime. [facility] mirtazapine 15 mg tablet 3-0 5-12 00:00: 00 Yes 15mg Take 1 tablet by mouth at bedtime. [facility] mirtazapine 15 mg tablet 3-0 5-12 00:00: 00 Yes 15mg Take 1 tablet by mouth at bedtime. [facility] mirtazapine 15 mg tablet 3-0 5-12 00:00: 00 Yes 15mg Take 1 tablet by mouth at bedtime. [facility] mirtazapine 15 mg tablet 3-0 -12 00:00: 00 Yes 15mg Take 1 tablet by mouth at bedtime. [facility] mirtazapine 15 mg tablet 3-0 -12 00:00: 00 Yes 15mg Take 1 tablet by mouth at bedtime. [facility] mirtazapine 15 mg tablet 3-0 -12 00:00: 00 Yes 15mg Take 1 tablet by mouth at bedtime. [facility] mirtazapine 15 mg tablet 3-0 -12 00:00: 00 Yes 15mg Take 1 tablet by mouth at bedtime. [facility] meloxicam 15 mg tablet 3-0 -09 00:00: 00 Yes 15mg Take 1 tablet by mouth in the morning. [facility] meloxicam 15 mg tablet 3-0 -09 00:00: 00 Yes 15mg Take 1 tablet by mouth in the morning. [facility] meloxicam 15 mg tablet 3-0 - 00:00: 00 Yes 15mg Take 1 tablet by mouth in the morning. [facility] meloxicam 15 mg tablet 3-0 - 00:00: 00 Yes 15mg Take 1 tablet by mouth in the morning. [facility] meloxicam 15 mg tablet 3-0 -09 00:00: 00 Yes 15mg Take 1 tablet by mouth in the morning. [facility] meloxicam 15 mg tablet 2022-0 09-18 00:00: 00 Yes 15mg Take 1 tablet by mouth in the morning. [facility] meloxicam 15 mg tablet 0 09-18 00:00: 00 Yes 15mg Take 1 tablet by mouth in the morning. [facility] meloxicam 15 mg tablet 0 09-18 00:00: 00 Yes 15mg Take 1 tablet by mouth in the morning. [facility] 20[facility]-0 09-18 00:00: 00 Yes 15mg Take 1 tablet by mouth in the morning. [facility] mg tablet 2022-0 09-18 00:00: 00 Yes 15mg Take 1 tablet by mouth in the morning. [facility] verapamil SR 120 mg ER tablet 2022-0 09-17 00:00: 00 Yes 120mg Take 1 tablet by mouth in the morning. [facility] ver[facility] 120 mg ER tablet 2022-0 09-17 00:00: 00 Yes 120mg Take 1 tablet by mouth in the morning. [facility] verapamil SR 120 mg ER tablet 2022-0 09-17 00:00: 00 Yes 120mg Take 1 tablet by mouth in the morning. [facility] verapamil SR 120 mg ER tablet 2022-0 09-17 00:00: 00 Yes 120mg Take 1 tablet by mouth in the morning. [facility] ver[facility] 120 mg ER tablet 2022-0 09-17 00:00: 00 Yes 120mg Take 1 tablet by mouth in the morning. [facility] ver[facility]amil SR 120 mg ER tablet 2022-0 09-17 00:00: 00 Yes 120mg Take 1 tablet by mouth in the morning. [facility] verapamil SR 120 mg ER tablet 2022-0 09-17 00:00: 00 Yes 120mg Take 1 tablet by mouth in the morning. [facility] verapamil SR 120 mg ER tablet 2022-0 08 00:00: 00 Yes 120mg Take 1 tablet by mouth in the morning. [facility] verapamil SR 120 mg ER tablet 2022-0 5-08 00:00: 00 Yes 120mg Take 1 tablet by mouth in the morning. [facility] verapamil SR 120 mg ER tablet 2022-0 5-08 00:00: 00 Yes 120mg Take 1 tablet by mouth in the morning. [facility] OLANZapine 10 mg tablet 3-0 27 00:00: 00 Yes 10mg Take 1 tablet by mouth in the morning. [facility] cloNIDine 0.1 mg tablet 3-0 27 00:00: 00 Yes TAKE 1-2 TABLETS BY MOUTH AT BEDTIME NEEDED FOR SLEEP AND ANXIETY [facility] OLAN[facility] 10 mg tablet 3-0 27 00:00: 00 Yes 10mg Take 1 tablet by mouth in the morning. [facility] cloNIDine 0.1 mg tablet 3-0 27 00:00: 00 Yes TAKE 1-2 TABLETS BY MOUTH AT BEDTIME NEEDED FOR SLEEP AND ANXIETY [facility] OLANZapine 10 mg tablet 3-0 27 00:00: 00 Yes 10mg Take 1 tablet by mouth in the morning. [facility] cloNIDine 0.1 mg tablet 3-0 27 00:00: 00 Yes TAKE 1-2 TABLETS BY MOUTH AT BEDTIME NEEDED FOR SLEEP AND ANXIETY [facility] OLANZapine 10 mg tablet 3-0 27 00:00: 00 Yes 10mg Take 1 tablet by mouth in the morning. [facility] cloNIDine 0.1 mg tablet 3-0 27 00:00: 00 Yes TAKE 1-2 TABLETS BY MOUTH AT BEDTIME NEEDED FOR SLEEP AND ANXIETY [facility] OLANZapine 10 mg tablet 3-0 27 00:00: 00 Yes 10mg Take 1 tablet by mouth in the morning. [facility] cloNIDine 0.1 mg tablet 3-0 27 00:00: 00 Yes TAKE 1-2 TABLETS BY MOUTH AT BEDTIME NEEDED FOR SLEEP AND ANXIETY [facility] OLANZapine 10 mg tablet 3-0 27 00:00: 00 Yes 10mg Take 1 tablet by mouth in the morning. [facility] cloNIDine 0.1 mg tablet 09-06 00:00: 00 Yes TAKE 1-2 TABLETS BY MOUTH AT BEDTIME NEEDED FOR SLEEP AND ANXIETY [facility] OLANZapine 10 mg tablet 09-06 00:00: 00 Yes 10mg Take 1 tablet by mouth in the morning. [facility] cloNIDine 0.1 mg tablet 09-06 00:00: 00 Yes TAKE 1-2 TABLETS BY MOUTH AT BEDTIME NEEDED FOR SLEEP AND ANXIETY [facility] OLANZapine 10 mg tablet 09-06 00:00: 00 Yes 10mg Take 1 tablet by mouth in the morning. [facility] cloNIDine 0.1 mg tablet 09-06 00:00: 00 Yes TAKE 1-2 TABLETS BY MOUTH AT BEDTIME NEEDED FOR SLEEP AND ANXIETY [facility] OLANZapine 10 mg tablet 09-06 00:00: 00 Yes 10mg Take 1 tablet by mouth in the morning. [facility] cloNIDine 0.1 mg tablet 09-06 00:00: 00 Yes TAKE 1-2 TABLETS BY MOUTH AT BEDTIME NEEDED FOR SLEEP AND ANXIETY [facility] OLANZapine 10 mg tablet 09-06 00:00: 00 Yes 10mg Take 1 tablet by mouth in the morning. [facility] cloNIDine 0.1 mg tablet 09-06 00:00: 00 Yes TAKE 1-2 TABLETS BY MOUTH AT BEDTIME NEEDED FOR SLEEP AND ANXIETY [facility] NaCl 0.9% (NS) bolus infusion 1,000 mL 09-05 18:15: 00 09-05 18:08 :00 No 1000mL at 999 mL/hr, 1,000 mL, IV Infusion, ONCE, 1 dose, On Sat09/05/22 at 1315, STAT [facility] acetaminoph en (TYLENOL) tablet 650 mg 09-05 17:30: 00 09-05 17:24 :00 No 650mg 650 mg, Oral, ONCE, 1 dose, On Sat09/05/22 at 1230, [place] [facility] ondansetron (ZOFRAN (PF)) injection 4 mg 09-05 17:15: 00 09-05 17:23 :00 No 4mg 4 mg, Slow IV Push, ONCE, 1 dose, On Sat09/05/22 at 1215, [place] [facility] magnesium sulfate in water 2 gram/50 mL (4 %) infusion 2 g 09-05 16:15: 00 09-05 16:10 :00 No 2g 2 g, IV Piggyback, Administer over 30 Minutes, ONCE, 1 dose, On Sat09/05/22 at 1115, Routine [facility] diphenhydrA MINE (BENADRYL) injection 25 mg 09-05 16:00: 00 09-05 16:01 :00 No 25mg 25 mg, Slow IV Push, ONCE, 1 dose, On Sat09/05/22 at 1100, STAT [facility] ketorolac (TORADOL) injection 30 mg 09-05 15:30: 00 09-05 14:38 :00 No 30mg 30 mg, Slow IV Push, ONCE, 1 dose, On Sat09/05/22 at 1030, Routine [facility] NaCl 0.9% (NS) bolus infusion 1,000 mL 09-05 15:00: 00 09-05 17:12 :00 No 1000mL at 999 mL/hr, 1,000 mL, IV Infusion, ONCE, 1 dose, On Sat09/05/22 at 1000, STAT [facility] methylpredn isolone sod succ (SOLU-MEDRO L) injection 125 mg 09-05 14:45: 00 09-05 14:35 :00 No 125mg 125 mg, Intravenou s, ONCE, 1 dose, On Sat09/05/22 at 0945, 2 mL [facility] butalbital- acetaminoph en-caff (ESGIC) 50-325-40 mg tablet 1 tablet 09-05 14:00: 00 09-05 14:34 :00 No 1{tbl} 1 tablet, Oral, ONCE, 1 dose, On Sat09/05/22 at 0900, [place] [facility] diphenhydrA MINE (BENADRYL) injection 25 mg 09-05 14:00: 00 09-05 14:39 :00 No 25mg 25 mg, Slow IV Push, ONCE, 1 dose, On Sat09/05/22 at 0900, STAT [facility] proMETHazin e (PHENERGAN) 12.5 mg in NaCl 0.9% (NS) 50 mL IV piggyback 09-05 14:00: 00 09-05 14:40 :00 No 12.5mg 12.5 mg, IV Piggyback, ONCE, 1 dose, On Sat09/05/22 at 0900, [place] [facility] carvediloL 25 mg tablet 09-05 00:00: 00 Yes [id number] 25mg Take 1 tablet by mouth in the morning and 1 tablet in the evening. Take with meals. [facility] losartan 50 mg tablet 09-05 00:00: 00 Yes [id number] 50mg Take 1 tablet by mouth in the morning and 1 tablet in the evening. [facility] carvediloL 25 mg tablet 09-05 00:00: 00 Yes [id number] 25mg Take 1 tablet by mouth in the morning and 1 tablet in the evening. Take with meals. [facility] losartan 50 mg tablet 09-05 00:00: 00 Yes [id number] 50mg Take 1 tablet by mouth in the morning and 1 tablet in the evening. [facility] carvediloL 25 mg tablet 09-05 00:00: 00 Yes [id number] 25mg Take 1 tablet by mouth in the morning and 1 tablet in the evening. Take with meals. [facility] losartan 50 mg tablet 09-05 00:00: 00 Yes [id number] 50mg Take 1 tablet by mouth in the morning and 1 tablet in the evening. [facility] carvediloL 25 mg tablet 09-05 00:00: 00 Yes [id number] 25mg Take 1 tablet by mouth in the morning and 1 tablet in the evening. Take with meals. [facility] losartan 50 mg tablet 3-0 26 00:00: 00 Yes [id number] 50mg Take 1 tablet by mouth in the morning and 1 tablet in the evening. [facility] carvediloL 25 mg tablet 3-0 26 00:00: 00 Yes [id number] 25mg Take 1 tablet by mouth in the morning and 1 tablet in the evening. Take with meals. [facility] losartan 50 mg tablet 3-0 26 00:00: 00 Yes [id number] 50mg Take 1 tablet by mouth in the morning and 1 tablet in the evening. [facility] carvediloL 25 mg tablet 3-0 26 00:00: 00 Yes [id number] 25mg Take 1 tablet by mouth in the morning and 1 tablet in the evening. Take with meals. [facility] losartan 50 mg tablet 3-0 26 00:00: 00 Yes [id number] 50mg Take 1 tablet by mouth in the morning and 1 tablet in the evening. [facility] carvediloL 25 mg tablet 3-0 09-05 00:00: 00 Yes [id number] 25mg Take 1 tablet by mouth in the morning and 1 tablet in the evening. Take with meals. [facility] losartan 50 mg tablet 3-0 26 00:00: 00 Yes [id number] 50mg Take 1 tablet by mouth in the morning and 1 tablet in the evening. [facility] carvediloL 25 mg tablet 3-0 26 00:00: 00 Yes [id number] 25mg Take 1 tablet by mouth in the morning and 1 tablet in the evening. Take with meals. [facility] losartan 50 mg tablet 3-0 26 00:00: 00 Yes [id number] 50mg Take 1 tablet by mouth in the morning and 1 tablet in the evening. [facility] carvediloL 25 mg tablet 3-0 -26 00:00: 00 Yes [id number] 25mg Take 1 tablet by mouth in the morning and 1 tablet in the evening. Take with meals. [facility] losartan 50 mg tablet 3-0 26 00:00: 00 Yes [id number] 50mg Take 1 tablet by mouth in the morning and 1 tablet in the evening. [facility] carvediloL 25 mg tablet 3-0 09-05 00:00: 00 Yes [id number] 25mg Take 1 tablet by mouth in the morning and 1 tablet in the evening. Take with meals. [facility] losartan 50 mg tablet 3-0 09-05 00:00: 00 Yes [id number] 50mg Take 1 tablet by mouth in the morning and 1 tablet in the evening. [facility] carvediloL 25 mg tablet 3-0 09-05 00:00: 00 Yes [id number] 25mg Take 1 tablet by mouth in the morning and 1 tablet in the evening. Take with meals. [facility] losartan 50 mg tablet 3-0 09-05 00:00: 00 Yes [id number] 50mg Take 1 tablet by mouth in the morning and 1 tablet in the evening. [facility] carvediloL 25 mg tablet 3-0 09-05 00:00: 00 Yes [id number] 25mg Take 1 tablet by mouth in the morning and 1 tablet in the evening. Take with meals. [facility] losartan 50 mg tablet 3-0 26 00:00: 00 Yes [id number] 50mg Take 1 tablet by mouth in the morning and 1 tablet in the evening. [facility] carvediloL 25 mg tablet 3-0 09-05 00:00: 00 Yes [id number] 25mg Take 1 tablet by mouth in the morning and 1 tablet in the evening. Take with meals. [facility] losartan 50 mg tablet 3-0 26 00:00: 00 Yes [id number] 50mg Take 1 tablet by mouth in the morning and 1 tablet in the evening. [facility] carvediloL 25 mg tablet 3-0 26 00:00: 00 Yes [id number] 25mg Take 1 tablet by mouth in the morning and 1 tablet in the evening. Take with meals. [facility] losartan 50 mg tablet 3-0 26 00:00: 00 Yes [id number] 50mg Take 1 tablet by mouth in the morning and 1 tablet in the evening. [facility] carvediloL 25 mg tablet 2022-0 09-05 00:00: 00 Yes [id number] 25mg Take 1 tablet by mouth in the morning and 1 tablet in the evening. Take with meals. [facility] losartan 50 mg tablet 2022-0 09-05 00:00: 00 Yes [id number] 50mg Take 1 tablet by mouth in the morning and 1 tablet in the evening. [facility] ibuprofen 800 mg tablet 2022-0 08-05 00:00: 00 Yes 800mg Take 1 tablet by mouth 3 (three) times daily as needed. [facility] cyclobenzap rine 10 mg tablet 2022-0 08-05 00:00: 00 Yes 10mg Take 1 tablet by mouth 3 (three) times daily as needed. [facility] ibuprofen 800 mg tablet 2022-0 08-05 00:00: 00 Yes 800mg Take 1 tablet by mouth 3 (three) times daily as needed. [facility] cyclobenzap rine 10 mg tablet 2022-0 08-05 00:00: 00 Yes 10mg Take 1 tablet by mouth 3 (three) times daily as needed. [facility] ibuprofen 800 mg tablet 2022-0 08-05 00:00: 00 Yes 800mg Take 1 tablet by mouth 3 (three) times daily as needed. [facility] cyclobenzap rine 10 mg tablet 2022-0 08-05 00:00: 00 Yes 10mg Take 1 tablet by mouth 3 (three) times daily as needed. [facility] ibuprofen 800 mg tablet 2022-0 26 00:00: 00 Yes 800mg Take 1 tablet by mouth 3 (three) times daily as needed. [facility] cyclobenzap rine 10 mg tablet 3-0 26 00:00: 00 Yes 10mg Take 1 tablet by mouth 3 (three) times daily as needed. [facility] ibuprofen 800 mg tablet 3-0 26 00:00: 00 Yes 800mg Take 1 tablet by mouth 3 (three) times daily as needed. [facility] cyclobenzap rine 10 mg tablet 3-0 26 00:00: 00 Yes 10mg Take 1 tablet by mouth 3 (three) times daily as needed. [facility] ibuprofen 800 mg tablet 3-0 326 00:00: 00 Yes 800mg Take 1 tablet by mouth 3 (three) times daily as needed. [facility] cyclobenzap rine 10 mg tablet 3-0 326 00:00: 00 Yes 10mg Take 1 tablet by mouth 3 (three) times daily as needed. [facility] ibuprofen 800 mg tablet 3-0 326 00:00: 00 Yes 800mg Take 1 tablet by mouth 3 (three) times daily as needed. [facility] cyclobenzap rine 10 mg tablet 3-0 26 00:00: 00 Yes 10mg Take 1 tablet by mouth 3 (three) times daily as needed. [facility] ibuprofen 800 mg tablet 3-0 26 00:00: 00 Yes 800mg Take 1 tablet by mouth 3 (three) times daily as needed. [facility] cyclobenzap rine 10 mg tablet 3-0 26 00:00: 00 Yes 10mg Take 1 tablet by mouth 3 (three) times daily as needed. [facility] ibuprofen 800 mg tablet 3-0 26 00:00: 00 Yes 800mg Take 1 tablet by mouth 3 (three) times daily as needed. [facility] cyclobenzap rine 10 mg tablet 3-0 26 00:00: 00 Yes 10mg Take 1 tablet by mouth 3 (three) times daily as needed. [facility] ibuprofen 800 mg tablet 3-0 326 00:00: 00 Yes 800mg Take 1 tablet by mouth 3 (three) times daily as needed. [facility] cyclobenzap rine 10 mg tablet 3-0 326 00:00: 00 Yes 10mg Take 1 tablet by mouth 3 (three) times daily as needed. [facility] ibuprofen 800 mg tablet 3-0 3-26 00:00: 00 Yes 800mg Take 1 tablet by mouth 3 (three) times daily as needed. [facility] cyclobenzap rine 10 mg tablet 2023-0 326 00:00: 00 Yes 10mg Take 1 tablet by mouth 3 (three) times daily as needed. [facility] ibuprofen 800 mg tablet 3-0 26 00:00: 00 Yes 800mg Take 1 tablet by mouth 3 (three) times daily as needed. [facility] cyclobenzap rine 10 mg tablet 3-0 26 00:00: 00 Yes 10mg Take 1 tablet by mouth 3 (three) times daily as needed. [facility] ibuprofen 800 mg tablet 3-0 26 00:00: 00 Yes 800mg Take 1 tablet by mouth 3 (three) times daily as needed. [facility] cyclobenzap rine 10 mg tablet 3-0 26 00:00: 00 Yes 10mg Take 1 tablet by mouth 3 (three) times daily as needed. [facility] ibuprofen 800 mg tablet 3-0 26 00:00: 00 Yes 800mg Take 1 tablet by mouth 3 (three) times daily as needed. [facility] cyclobenzap rine 10 mg tablet 3-0 26 00:00: 00 Yes 10mg Take 1 tablet by mouth 3 (three) times daily as needed. [facility] ibuprofen 800 mg tablet 3-0 26 00:00: 00 Yes 800mg Take 1 tablet by mouth 3 (three) times daily as needed. [facility] cyclobenzap rine 10 mg tablet 3-0 26 00:00: 00 Yes 10mg Take 1 tablet by mouth 3 (three) times daily as needed. [facility] ibuprofen 800 mg tablet 3-0 26 00:00: 00 Yes 800mg Take 1 tablet by mouth 3 (three) times daily as needed. [facility] cyclobenzap rine 10 mg tablet 3-0 26 00:00: 00 Yes 10mg Take 1 tablet by mouth 3 (three) times daily as needed. [facility] ibuprofen 800 mg tablet 3-0 326 00:00: 00 Yes 800mg Take 1 tablet by mouth 3 (three) times daily as needed. [facility] cyclobenzap rine 10 mg tablet 3-0 3-26 00:00: 00 Yes 10mg Take 1 tablet by mouth 3 (three) times daily as needed. [facility] ibuprofen 800 mg tablet 08-05 00:00: 00 Yes 800mg Take 1 tablet by mouth 3 (three) times daily as needed. [facility] cyclobenzap rine 10 mg tablet 08-05 00:00: 00 Yes 10mg Take 1 tablet by mouth 3 (three) times daily as needed. [facility] maalox:diph enhydrAMINE :lidocaine 2 % viscous 1:1:1 ([facility]) oral suspension 15 mL 08-01 00:45: 00 08-01 00:44 :00 No 15mL 15 mL, Oral, ONCE, 1 dose, On Sat07/31/22 at 1945, [place] [facility] ketorolac (TORADOL) injection 15 mg 08-01 00:15: 00 08-01 00:44 :00 No 15mg 15 mg, Slow IV Push, ONCE, 1 dose, On Sat07/31/22 at 1915, Routine [facility] ondansetron (ZOFRAN (PF)) injection 4 mg 08-01 00:15: 00 08-01 00:46 :00 No 4mg 4 mg, Slow IV Push, ONCE, 1 dose, On Sat07/31/22 at 1915, [place] [facility] famotidine (PEPCID (PF)) injection 20 mg 08-01 00:15: 00 08-01 00:46 :00 No 20mg 20 mg, Slow IV Push, ONCE, 1 dose, On Sat07/31/22 at 191, [facility] ondansetron 4 mg disintegrat ing tablet 07-31 00:00: 00 Yes [id number] 4mg Take 1 tablet by mouth every 8 (eight) hours as needed for Nausea and Vomiting (N/V). [facility] sucralfate 1 gram tablet 07-31 00:00: 00 Yes [id number] 1g Take 1 tablet by mouth before meals and at bedtime. [facility] ondansetron 4 mg disintegrat ing tablet 3-0 3-21 00:00: 00 Yes [id number] 4mg Take 1 tablet by mouth every 8 (eight) hours as needed for Nausea and Vomiting (N/V). [facility] sucralfate 1 gram tablet 3-0 3-21 00:00: 00 Yes [id number] 1g Take 1 tablet by mouth before meals and at bedtime. [facility] ondansetron 4 mg disintegrat ing tablet 3-0 3-21 00:00: 00 Yes [id number] 4mg Take 1 tablet by mouth every 8 (eight) hours as needed for Nausea and Vomiting (N/V). [facility] sucralfate 1 gram tablet 3-0 -21 00:00: 00 Yes [id number] 1g Take 1 tablet by mouth before meals and at bedtime. [facility] ondansetron 4 mg disintegrat ing tablet 2022-0 3-21 00:00: 00 Yes [id number] 4mg Take 1 tablet by mouth every 8 (eight) hours as needed for Nausea and Vomiting (N/V). [facility] sucralfate 1 gram tablet 2022-0 -21 00:00: 00 Yes [id number] 1g Take 1 tablet by mouth before meals and at bedtime. [facility] ondansetron 4 mg disintegrat ing tablet 3-0 3-21 00:00: 00 Yes [id number] 4mg Take 1 tablet by mouth every 8 (eight) hours as needed for Nausea and Vomiting (N/V). [facility] sucralfate 1 gram tablet 3-0 3-21 00:00: 00 Yes [id number] 1g Take 1 tablet by mouth before meals and at bedtime. [facility] ondansetron 4 mg disintegrat ing tablet 3-0 3-21 00:00: 00 Yes [id number] 4mg Take 1 tablet by mouth every 8 (eight) hours as needed for Nausea and Vomiting (N/V). [facility] sucralfate 1 gram tablet 3-0 3-21 00:00: 00 Yes [id number] 1g Take 1 tablet by mouth before meals and at bedtime. [facility] ondansetron 4 mg disintegrat ing tablet 3-0 3-21 00:00: 00 Yes [id number] 4mg Take 1 tablet by mouth every 8 (eight) hours as needed for Nausea and Vomiting (N/V). [facility] sucralfate 1 gram tablet 2022-0 3-21 00:00: 00 Yes [id number] 1g Take 1 tablet by mouth before meals and at bedtime. [facility] ondansetron 4 mg disintegrat ing tablet 3-0 -21 00:00: 00 Yes [id number] 4mg Take 1 tablet by mouth every 8 (eight) hours as needed for Nausea and Vomiting (N/V). [facility] sucralfate 1 gram tablet 2022-0 -21 00:00: 00 Yes [id number] 1g Take 1 tablet by mouth before meals and at bedtime. [facility] ondansetron 4 mg disintegrat ing tablet 2022-0 - 00:00: 00 Yes [id number] 4mg Take 1 tablet by mouth every 8 (eight) hours as needed for Nausea and Vomiting (N/V). [facility] sucralfate 1 gram tablet 2022-0 -21 00:00: 00 Yes [id number] 1g Take 1 tablet by mouth before meals and at bedtime. [facility] ondansetron 4 mg disintegrat ing tablet 3-0 3-21 00:00: 00 Yes [id number] 4mg Take 1 tablet by mouth every 8 (eight) hours as needed for Nausea and Vomiting (N/V). [facility] sucralfate 1 gram tablet 3-0 3-21 00:00: 00 Yes [id number] 1g Take 1 tablet by mouth before meals and at bedtime. [facility] ondansetron 4 mg disintegrat ing tablet 3-0 3-21 00:00: 00 Yes [id number] 4mg Take 1 tablet by mouth every 8 (eight) hours as needed for Nausea and Vomiting (N/V). [facility] sucralfate 1 gram tablet 3-0 3-21 00:00: 00 Yes [id number] 1g Take 1 tablet by mouth before meals and at bedtime. [facility] ondansetron 4 mg disintegrat ing tablet 2022-0 3-21 00:00: 00 Yes [id number] 4mg Take 1 tablet by mouth every 8 (eight) hours as needed for Nausea and Vomiting (N/V). [facility] sucralfate 1 gram tablet 2022-0 -21 00:00: 00 Yes [id number] 1g Take 1 tablet by mouth before meals and at bedtime. [facility] ondansetron 4 mg disintegrat ing tablet 2022-0 - 00:00: 00 Yes [id number] 4mg Take 1 tablet by mouth every 8 (eight) hours as needed for Nausea and Vomiting (N/V). [facility] sucralfate 1 gram tablet 2022-0 07-31 00:00: 00 Yes [id number] 1g Take 1 tablet by mouth before meals and at bedtime. [facility] ondansetron 4 mg disintegrat ing tablet 2022-0 - 00:00: 00 Yes [id number] 4mg Take 1 tablet by mouth every 8 (eight) hours as needed for Nausea and Vomiting (N/V). [facility] sucralfate 1 gram tablet 2022-0 21 00:00: 00 Yes [id number] 1g Take 1 tablet by mouth before meals and at bedtime. [facility] ondansetron 4 mg disintegrat ing tablet 2022-0 3-21 00:00: 00 Yes [id number] 4mg Take 1 tablet by mouth every 8 (eight) hours as needed for Nausea and Vomiting (N/V). [facility] sucralfate 1 gram tablet 3-0 3-21 00:00: 00 Yes [id number] 1g Take 1 tablet by mouth before meals and at bedtime. [facility] ondansetron 4 mg disintegrat ing tablet 3-0 3-21 00:00: 00 Yes [id number] 4mg Take 1 tablet by mouth every 8 (eight) hours as needed for Nausea and Vomiting (N/V). [facility] sucralfate 1 gram tablet 3-0 3-21 00:00: 00 Yes [id number] 1g Take 1 tablet by mouth before meals and at bedtime. [facility] ondansetron 4 mg disintegrat ing tablet 2022-0 07-31 00:00: 00 Yes [id number] 4mg Take 1 tablet by mouth every 8 (eight) hours as needed for Nausea and Vomiting (N/V). [facility] sucralfate 1 gram tablet 2022-0 07-31 00:00: 00 Yes [id number] 1g Take 1 tablet by mouth before meals and at bedtime. [facility] ondansetron 4 mg disintegrat ing tablet 2022-0 07-31 00:00: 00 Yes [id number] 4mg Take 1 tablet by mouth every 8 (eight) hours as needed for Nausea and Vomiting (N/V). [facility] sucralfate 1 gram tablet 2022-0 07-31 00:00: 00 Yes [id number] 1g Take 1 tablet by mouth before meals and at bedtime. [facility] ondansetron 4 mg disintegrat ing tablet 2022-0 07-31 00:00: 00 Yes [id number] 4mg Take 1 tablet by mouth every 8 (eight) hours as needed for Nausea and Vomiting (N/V). [facility] sucralfate 1 gram tablet 2022-0 07-31 00:00: 00 Yes [id number] 1g Take 1 tablet by mouth before meals and at bedtime. [facility] ondansetron 4 mg disintegrat ing tablet 2022-0 07-31 00:00: 00 05-19 00:00 :00 No [id number] 4mg Take 1 tablet by mouth every 8 (eight) hours as needed for Nausea and Vomiting (N/V). [facility] sucralfate 1 gram tablet 2022-0 07-31 00:00: 00 05-19 00:00 :00 No [id number] 1g Take 1 tablet by mouth before meals and at bedtime. [facility] pantoprazol e 40 mg EC tablet 3-0 3-21 00:00: 00 08-15 04:59 :00 No [id number] 40mg Take 1 tablet by mouth in the morning for 14 days. [facility] pantoprazol e 40 mg EC tablet 3-0 3-21 00:00: 00 05 04:59 :00 No [id number] 40mg Take 1 tablet by mouth in the morning for 14 days. [facility] tamsulosin 0.4 mg 24 hr capsule 3-0 3-15 00:00: 00 Yes .4mg Take 1 capsule by mouth in the morning. [facility] tamsulosin 0.4 mg 24 hr capsule 3-0 3-15 00:00: 00 Yes .4mg Take 1 capsule by mouth in the morning. [facility] tamsulosin 0.4 mg 24 hr capsule 2023-0 3-15 00:00: 00 Yes .4mg Take 1 capsule by mouth in the morning. [facility] tamsulosin 0.4 mg 24 hr capsule 3-0 3-15 00:00: 00 Yes .4mg Take 1 capsule by mouth in the morning. [facility] tamsulosin 0.4 mg 24 hr capsule 3-0 3-15 00:00: 00 Yes .4mg Take 1 capsule by mouth in the morning. [facility] tamsulosin 0.4 mg 24 hr capsule 2023-0 3-15 00:00: 00 Yes .4mg Take 1 capsule by mouth in the morning. [facility] tamsulosin 0.4 mg 24 hr capsule 2023-0 3-15 00:00: 00 Yes .4mg Take 1 capsule by mouth in the morning. [facility] tamsulosin 0.4 mg 24 hr capsule 2023-0 3-15 00:00: 00 Yes .4mg Take 1 capsule by mouth in the morning. [facility] tamsulosin 0.4 mg 24 hr capsule 2023-0 3-15 00:00: 00 Yes .4mg Take 1 capsule by mouth in the morning. [facility] tamsulosin 0.4 mg 24 hr capsule 2023-0 3-15 00:00: 00 Yes .4mg Take 1 capsule by mouth in the morning. [facility] 24 hr capsule 2023-0 3-15 00:00: 00 Yes .4mg Take 1 capsule by mouth in the morning. [facility] tamsulosin 0.4 mg 24 hr capsule 2023-0 3-15 00:00: 00 Yes .4mg Take 1 capsule by mouth in the morning. [facility] tamsulosin 0.4 mg 24 hr capsule 2023-0 3-15 00:00: 00 Yes .4mg Take 1 capsule by mouth in the morning. [facility] tamsulosin 0.4 mg 24 hr capsule 2023-0 3-15 00:00: 00 Yes .4mg Take 1 capsule by mouth in the morning. [facility] tamsulosin 0.4 mg 24 hr capsule 2023-0 3-15 00:00: 00 Yes .4mg Take 1 capsule by mouth in the morning. [facility] tamsulosin 0.4 mg 24 hr capsule 2023-0 3-15 00:00: 00 Yes .4mg Take 1 capsule by mouth in the morning. [facility] tamsulosin 0.4 mg 24 hr capsule 2023-0 3-15 00:00: 00 Yes .4mg Take 1 capsule by mouth in the morning. [facility] tamsulosin 0.4 mg 24 hr capsule 2023-0 3-15 00:00: 00 Yes .4mg Take 1 capsule by mouth in the morning. [facility] traMADoL 50 mg tablet 3-0 3-13 00:00: 00 Yes 50mg Take 1 tablet by mouth. [facility] traMADoL 50 mg tablet 3-0 3-13 00:00: 00 Yes 50mg Take 1 tablet by mouth. [facility] traMADoL 50 mg tablet 3-0 3-13 00:00: 00 Yes 50mg Take 1 tablet by mouth. [facility] traMADoL 50 mg tablet 3-0 3-13 00:00: 00 Yes 50mg Take 1 tablet by mouth. [facility] traMADoL 50 mg tablet 0 13 00:00: 00 Yes 50mg Take 1 tablet by mouth. [facility] traMADoL 50 mg tablet 0 13 00:00: 00 Yes 50mg Take 1 tablet by mouth. [facility] traMADoL 50 mg tablet 0 07-23 00:00: 00 Yes 50mg Take 1 tablet by mouth. [facility] traMADoL 50 mg tablet 0 13 00:00: 00 Yes 50mg Take 1 tablet by mouth. [facility] traMADoL 50 mg tablet 0 07-23 00:00: 00 Yes 50mg Take 1 tablet by mouth. [facility] traMADoL 50 mg tablet 0 07-23 00:00: 00 Yes 50mg Take 1 tablet by mouth. [facility] traMADoL 50 mg tablet 0 07-23 00:00: 00 Yes 50mg Take 1 tablet by mouth. [facility] traMADoL 50 mg tablet 0 07-23 00:00: 00 Yes 50mg Take 1 tablet by mouth. [facility] traMADoL 50 mg tablet 0 07-23 00:00: 00 Yes 50mg Take 1 tablet by mouth. [facility] traMADoL 50 mg tablet 0 07-23 00:00: 00 Yes 50mg Take 1 tablet by mouth. [facility] traMADoL 50 mg tablet 0 07-23 00:00: 00 Yes 50mg Take 1 tablet by mouth. [facility] traMADoL 50 mg tablet 0 13 00:00: 00 Yes 50mg Take 1 tablet by mouth. [facility] traMADoL 50 mg tablet 0 13 00:00: 00 Yes 50mg Take 1 tablet by mouth. [facility] traMADoL 50 mg tablet 0 13 00:00: 00 Yes 50mg Take 1 tablet by mouth. [facility] ibuprofen 600 mg tablet 2022-0 305 00:00: 00 Yes [id number] 600mg Take 1 tablet by mouth every 6 (six) hours as needed for Pain (scale 4-6). [facility] ibuprofen 600 mg tablet 3-0 3-05 00:00: 00 Yes [id number] 600mg Take 1 tablet by mouth every 6 (six) hours as needed for Pain (scale 4-6). [facility] ibuprofen 600 mg tablet 3-0 3-05 00:00: 00 Yes [id number] 600mg Take 1 tablet by mouth every 6 (six) hours as needed for Pain (scale 4-6). [facility] ibuprofen 600 mg tablet 3-0 3-05 00:00: 00 07-31 00:00 :00 No [id number] 600mg Take 1 tablet by mouth every 6 (six) hours as needed for Pain (scale 4-6). [facility] citalopram 10 mg tablet 3-0 2-17 00:00: 00 Yes 10mg Take 1 tablet by mouth in the morning. [facility] QUEtiapine 400 mg tablet 3-0 2-17 00:00: 00 Yes [facility] gabapentin 600 mg tablet 3-0 2-17 00:00: 00 Yes [facility] citalopram 10 mg tablet 3-0 2-17 00:00: 00 Yes 10mg Take 1 tablet by mouth in the morning. [facility] QUEtiapine 400 mg tablet 3-0 2-17 00:00: 00 Yes [facility] gabapentin 600 mg tablet 3-0 2-17 00:00: 00 Yes [facility] citalopram 10 mg tablet 3-0 2-17 00:00: 00 Yes 10mg Take 1 tablet by mouth in the morning. [facility] QUEtiapine 400 mg tablet 3-0 2-17 00:00: 00 Yes [facility] gabapentin 600 mg tablet 3-0 2-17 00:00: 00 Yes [facility] citalopram 10 mg tablet 3-0 2-17 00:00: 00 Yes 10mg Take 1 tablet by mouth in the morning. [facility] QUEtiapine 400 mg tablet 2023-0 2-17 00:00: 00 Yes [facility] gabapentin 600 mg tablet 3-0 2-17 00:00: 00 Yes [facility] citalopram 10 mg tablet 3-0 2-17 00:00: 00 Yes 10mg Take 1 tablet by mouth in the morning. [facility] QUEtiapine 400 mg tablet 3-0 2-17 00:00: 00 Yes [facility] gabapentin 600 mg tablet 3-0 2-17 00:00: 00 Yes [facility] citalopram 10 mg tablet 3-0 2-17 00:00: 00 Yes 10mg Take 1 tablet by mouth in the morning. [facility] QUEtiapine 400 mg tablet 3-0 2-17 00:00: 00 Yes [facility] gabapentin 600 mg tablet 3-0 2-17 00:00: 00 Yes [facility] citalopram 10 mg tablet 3-0 2-17 00:00: 00 Yes 10mg Take 1 tablet by mouth in the morning. [facility] QUEtiapine 400 mg tablet 3-0 2-17 00:00: 00 Yes [facility] gabapentin 600 mg tablet 3-0 2-17 00:00: 00 Yes [facility] citalopram 10 mg tablet 3-0 2-17 00:00: 00 Yes 10mg Take 1 tablet by mouth in the morning. [facility] QUEtiapine 400 mg tablet 3-0 2-17 00:00: 00 Yes [facility] gabapentin 600 mg tablet 3-0 2-17 00:00: 00 Yes [facility] citalopram 10 mg tablet 3-0 2-17 00:00: 00 Yes 10mg Take 1 tablet by mouth in the morning. [facility] QUEtiapine 400 mg tablet 3-0 2-17 00:00: 00 Yes [facility] gabapentin 600 mg tablet 3-0 2-17 00:00: 00 Yes [facility] citalopram 10 mg tablet 3-0 2-17 00:00: 00 Yes 10mg Take 1 tablet by mouth in the morning. [facility] QUEtiapine 400 mg tablet 2023-0 2-17 00:00: 00 Yes [facility] gabapentin 600 mg tablet 2023-0 2-17 00:00: 00 Yes [facility] citalopram 10 mg tablet 2023-0 2-17 00:00: 00 Yes 10mg Take 1 tablet by mouth in the morning. [facility] QUEtiapine 400 mg tablet 2023-0 2-17 00:00: [address] [facility] gabapentin 600 mg tablet 3-0 2-17 00:00: [address] [facility] citalopram 10 mg tablet 3-0 2-17 00:00: 00 Yes 10mg Take 1 tablet by mouth in the morning. [facility] QUEtiapine 400 mg tablet 3-0 2-17 00:00: [address] [facility] gabapentin 600 mg tablet 3-0 2-17 00:00: [address] [facility] citalopram 10 mg tablet 2023-0 2-17 00:00: 00 Yes 10mg Take 1 tablet by mouth in the morning. [facility] QUEtiapine 400 mg tablet 3-0 2-17 00:00: [address] [facility] gabapentin 600 mg tablet 2023-0 2-17 00:00: [address] [facility] citalopram 10 mg tablet 2023-0 2-17 00:00: 00 Yes 10mg Take 1 tablet by mouth in the morning. [facility] QUEtiapine 400 mg tablet 2023-0 2-17 00:00: [address] [facility] gabapentin 600 mg tablet 2023-0 2-17 00:00: 00 Yes [facility] citalopram 10 mg tablet 2023-0 2-17 00:00: 00 Yes 10mg Take 1 tablet by mouth in the morning. [facility] QUEtiapine 400 mg tablet 2023-0 2-17 00:00: 00 Yes [facility] gabapentin 600 mg tablet 2023-0 2-17 00:00: 00 Yes [facility] citalopram 10 mg tablet 3-0 2-17 00:00: 00 Yes 10mg Take 1 tablet by mouth in the morning. [facility] QUEtiapine 400 mg tablet 3-0 2-17 00:00: 00 Yes [facility] gabapentin 600 mg tablet 3-0 2-17 00:00: 00 Yes [facility] citalopram 10 mg tablet 3-0 2-17 00:00: 00 Yes 10mg Take 1 tablet by mouth in the morning. [facility] QUEtiapine 400 mg tablet 3-0 2-17 00:00: 00 Yes [facility] gabapentin 600 mg tablet 3-0 2-17 00:00: 00 Yes [facility] citalopram 10 mg tablet 3-0 2-17 00:00: 00 Yes 10mg Take 1 tablet by mouth in the morning. [facility] QUEtiapine 400 mg tablet 3-0 2-17 00:00: 00 Yes [facility] gabapentin 600 mg tablet 3-0 2-17 00:00: 00 Yes [facility] methylPREDN ISolone (MEDROL, ANABELA,) 4 mg tablets 2022-0 2-11 00:00: 00 Yes [id number] Take by mouth SEE-INSTRU CTIONS. follow package directions [facility] methylPREDN ISolone (MEDROL, ANABELA,) 4 mg tablets 3-0 2-11 00:00: 00 Yes [id number] Take by mouth SEE-INSTRU CTIONS. follow package directions [facility] methylPREDN ISolone (MEDROL, ANABELA,) 4 mg tablets 3-0 2-11 00:00: 00 Yes [id number] Take by mouth SEE-INSTRU CTIONS. follow package directions [facility] methylPREDN ISolone (MEDROL, ANABELA,) 4 mg tablets 3-0 2-11 00:00: 00 Yes [id number] Take by mouth SEE-INSTRU CTIONS. follow package directions [facility] methylPREDN ISolone (MEDROL, ANABELA,) 4 mg tablets 3-0 2-11 00:00: 00 Yes [id number] Take by mouth SEE-INSTRU CTIONS. follow package directions [facility] methylPREDN ISolone (MEDROL, ANABELA,) 4 mg tablets 0 2- 00:00: 00 Yes [id number] Take by mouth SEE-INSTRU CTIONS. follow package directions [facility] methylPREDN ISolone (MEDROL, ANABELA,) 4 mg tablets 2022-0 2- 00:00: 00 Yes [id number] Take by mouth SEE-INSTRU CTIONS. follow package directions [facility] methylPREDN ISolone (MEDROL, ANABELA,) 4 mg tablets 0 2 00:00: 00 Yes [id number] Take by mouth SEE-INSTRU CTIONS. follow package directions [facility] methylPREDN ISolone (MEDROL, ANABELA,) 4 mg tablets 0 2 00:00: 00 Yes [id number] Take by mouth SEE-INSTRU CTIONS. follow package directions [facility] methylPREDN ISolone (MEDROL, ANABELA,) 4 mg tablets 0 06-23 00:00: 00 Yes [id number] Take by mouth SEE-INSTRU CTIONS. follow package directions [facility] methylPREDN ISolone (MEDROL, ANABELA,) 4 mg tablets 0 2 00:00: 00 Yes [id number] Take by mouth SEE-INSTRU CTIONS. follow package directions [facility] methylPREDN ISolone (MEDROL, ANABELA,) 4 mg tablets 0 2- 00:00: 00 Yes [id number] Take by mouth SEE-INSTRU CTIONS. follow package directions [facility] methylPREDN ISolone (MEDROL, ANABELA,) 4 mg tablets 0 2 00:00: 00 Yes [id number] Take by mouth SEE-INSTRU CTIONS. follow package directions [facility] methylPREDN ISolone (MEDROL, ANABELA,) 4 mg tablets 2022-0 211 00:00: 00 Yes [id number] Take by mouth SEE-INSTRU CTIONS. follow package directions [facility] bromphenira mine-pseudo ephedrine-D M (BROMFED DM) 2-30-10 mg/5 mL syrup 2-11 00:00: 00 07-04 05:59 :00 No [id number] 5mL Take 5 mL by mouth 4 (four) times daily as needed for Cold symptoms for up to 10 days. [facility] methocarbam oL 750 mg tablet 06-23 00:00: 00 07-01 05:59 :00 No [id number] 750mg Take 1 tablet by mouth 4 (four) times daily for 7 days. [facility] magnesium sulfate in water 2 gram/50 mL (4 %) infusion 2 g 2021-05 21:00: 00 05-05 21:15 :00 No 2g 2 g, IV Piggyback, Administer over 15 Minutes, ONCE, 1 dose, On 05/05/22 at 1500, [facility] butalbital- acetaminoph en-caff (ESGIC) 50-325-40 mg tablet 1 tablet 2021-05 20:15: 00 05-05 20:56 :00 No 1{tbl} 1 tablet, Oral, ONCE, 1 dose, On 05/05/22 at 1415, [facility] dexamethaso ne sod phos PF injection 10 mg 2021-05 20:15: 00 05-05 21:00 :00 No 10mg 10 mg, Slow IV Push, ONCE, 1 dose, On 05/05/22 at 1415, 1 mL [facility] NaCl 0.9% (NS) bolus infusion 1,000 mL 2021-05 20:00: 00 05-05 21:45 :00 No 1000mL at 999 mL/hr, 1,000 mL, IV Infusion, ONCE, 1 dose, On 05/05/22 at 1400, [facility] diphenhydrA MINE (BENADRYL) injection 25 mg 2021-05 19:15: 00 05-05 19:42 :00 No 25mg 25 mg, Slow IV Push, ONCE, 1 dose, On 05/05/22 at 1315, STAT [facility] ondansetron (ZOFRAN (PF)) injection 4 mg 2021-05 19:15: 00 05-05 19:45 :00 No 4mg 4 mg, Slow IV Push, ONCE, 1 dose, On 05/05/22 at 1315, [place] [facility] ketorolac (TORADOL) injection 30 mg 2021-05 19:15: 00 05-05 19:44 :00 No 30mg 30 mg, Slow IV Push, ONCE, 1 dose, On 05/05/22 at 1315, Routine [facility] butalbital- acetaminoph en-caff 50-325-40 mg tablet 2021-05 00:00: 00 Yes [id number] 1{tbl} Take 1 tablet by mouth every 4 (four) hours as needed for Pain (scale 7-10). [facility] butalbital- acetaminoph en-caff 50-325-40 mg tablet 2021-05 00:00: 00 Yes [id number] 1{tbl} Take 1 tablet by mouth every 4 (four) hours as needed for Pain (scale 7-10). [facility] butalbital- acetaminoph en-caff 50-325-40 mg tablet 2021-05 00:00: 00 Yes [id number] 1{tbl} Take 1 tablet by mouth every 4 (four) hours as needed for Pain (scale 7-10). [facility] butalbital- acetaminoph en-caff 50-325-40 mg tablet 2021-05 00:00: 00 Yes [id number] 1{tbl} Take 1 tablet by mouth every 4 (four) hours as needed for Pain (scale 7-10). [facility] butalbital- acetaminoph en-caff 50-325-40 mg tablet 2021-05 00:00: 00 Yes [id number] 1{tbl} Take 1 tablet by mouth every 4 (four) hours as needed for Pain (scale 7-10). [facility] butalbital- acetaminoph en-caff 50-325-40 mg tablet 2021-05 00:00: 00 Yes [id number] 1{tbl} Take 1 tablet by mouth every 4 (four) hours as needed for Pain (scale 7-10). [facility] butalbital- acetaminoph en-caff 50-325-40 mg tablet 2021-05 00:00: 00 Yes [id number] 1{tbl} Take 1 tablet by mouth every 4 (four) hours as needed for Pain (scale 7-10). [facility] butalbital- acetaminoph en-caff 50-325-40 mg tablet 2021-05 00:00: 00 Yes [id number] 1{tbl} Take 1 tablet by mouth every 4 (four) hours as needed for Pain (scale 7-10). [facility] butalbital- acetaminoph en-caff 50-325-40 mg tablet 2021-05 00:00: 00 Yes [id number] 1{tbl} Take 1 tablet by mouth every 4 (four) hours as needed for Pain (scale 7-10). [facility] butalbital- acetaminoph en-caff 50-325-40 mg tablet 2021-05 00:00: 00 Yes [id number] 1{tbl} Take 1 tablet by mouth every 4 (four) hours as needed for Pain (scale 7-10). [facility] butalbital- acetaminoph en-caff 50-325-40 mg tablet 2021-05 00:00: 00 Yes [id number] 1{tbl} Take 1 tablet by mouth every 4 (four) hours as needed for Pain (scale 7-10). [facility] butalbital- acetaminoph en-caff 50-325-40 mg tablet 2021-05 00:00: 00 Yes [id number] 1{tbl} Take 1 tablet by mouth every 4 (four) hours as needed for Pain (scale 7-10). [facility] butalbital- acetaminoph en-caff 50-325-40 mg tablet 2021-05 00:00: 00 Yes [id number] 1{tbl} Take 1 tablet by mouth every 4 (four) hours as needed for Pain (scale 7-10). [facility] butalbital- acetaminoph en-caff 50-325-40 mg tablet 2021-05 00:00: 00 Yes [id number] 1{tbl} Take 1 tablet by mouth every 4 (four) hours as needed for Pain (scale 7-10). [facility] butalbital- acetaminoph en-caff 50-325-40 mg tablet 2021-05 00:00: 00 Yes [id number] 1{tbl} Take 1 tablet by mouth every 4 (four) hours as needed for Pain (scale 7-10). [facility] butalbital- acetaminoph en-caff 50-325-40 mg tablet 2021-05 00:00: 00 Yes [id number] 1{tbl} Take 1 tablet by mouth every 4 (four) hours as needed for Pain (scale 7-10). [facility] HYDROcodone -acetaminop hen (NORCO) 10-325 mg tablet 1 tablet 2021-05 16:30: 00 04-26 15:23 :00 No 1{tbl} 1 tablet, Oral, ONCE, 1 dose, On Kathie 04/26/22 at 1030, Routine [facility] diphenhydrA MINE (BENADRYL) tablet 25 mg 2021-05 15:45: 00 04-26 15:53 :00 No 25mg 25 mg, Oral, ONCE, 1 dose, On Kathie 04/26/22 at 0945, [place] [facility] NaCl 0.9% (NS) bolus infusion 1,000 mL 2021-05 15:45: 00 04-26 15:55 :00 No 1000mL at 999 mL/hr, 1,000 mL, IV Piggyback, ONCE, 1 dose, On [facility] 04/26/22 at 0945, STAT [facility] ondansetron (ZOFRAN (PF)) injection 4 mg 2021-05 14:45: 00 04-26 14:52 :00 No 4mg 4 mg, Slow IV Push, ONCE, 1 dose, On Kathie 04/26/22 at 0845, Routine [facility] cephALEXin (KEFLEX) 500 mg capsule 2021-05 00:00: 00 05-04 05:59 :00 No [id number] 500mg Take 1 capsule by mouth in the morning and 1 capsule at noon and 1 capsule in the evening. Do all this for 7 days. [facility] ondansetron (ZOFRAN) 4 mg tablet 2021-05 00:00: 00 Yes 4mg Take 1 tablet by mouth every 8 (eight) hours as needed for Nausea and Vomiting (N/V). [facility] ondansetron (ZOFRAN) 4 mg tablet 2021-05 00:00: 00 Yes 4mg Take 1 tablet by mouth every 8 (eight) hours as needed for Nausea and Vomiting (N/V). [facility] ondansetron (ZOFRAN) 4 mg tablet 2021-05 00:00: 00 Yes 4mg Take 1 tablet by mouth every 8 (eight) hours as needed for Nausea and Vomiting (N/V). [facility] ondansetron (ZOFRAN) 4 mg tablet 2021-05 00:00: 00 Yes 4mg Take 1 tablet by mouth every 8 (eight) hours as needed for Nausea and Vomiting (N/V). [facility] ondansetron (ZOFRAN) 4 mg tablet 2021-05 00:00: 00 Yes 4mg Take 1 tablet by mouth every 8 (eight) hours as needed for Nausea and Vomiting (N/V). [facility] ondansetron (ZOFRAN) 4 mg tablet 2021-05 00:00: 00 Yes 4mg Take 1 tablet by mouth every 8 (eight) hours as needed for Nausea and Vomiting (N/V). [facility] ondansetron (ZOFRAN) 4 mg tablet 2021-05 00:00: 00 Yes 4mg Take 1 tablet by mouth every 8 (eight) hours as needed for Nausea and Vomiting (N/V). [facility] ondansetron (ZOFRAN) 4 mg tablet 2021-05 00:00: 00 Yes 4mg Take 1 tablet by mouth every 8 (eight) hours as needed for Nausea and Vomiting (N/V). [facility] ondansetron (ZOFRAN) 4 mg tablet 2021-05 00:00: 00 Yes 4mg Take 1 tablet by mouth every 8 (eight) hours as needed for Nausea and Vomiting (N/V). [facility] ondansetron (ZOFRAN) 4 mg tablet 2021-05 00:00: 00 Yes 4mg Take 1 tablet by mouth every 8 (eight) hours as needed for Nausea and Vomiting (N/V). [facility] ondansetron (ZOFRAN) 4 mg tablet 2021-05 00:00: 00 Yes 4mg Take 1 tablet by mouth every 8 (eight) hours as needed for Nausea and Vomiting (N/V). [facility] ondansetron (ZOFRAN) 4 mg tablet 2021-05 00:00: 00 Yes 4mg Take 1 tablet by mouth every 8 (eight) hours as needed for Nausea and Vomiting (N/V). [facility] ondansetron (ZOFRAN) 4 mg tablet 2021-05 00:00: 00 07-31 00:00 :00 No 4mg Take 1 tablet by mouth every 8 (eight) hours as needed for Nausea and Vomiting (N/V). [facility] galcanezuma b-gnlm prefilled (EMGALITY) subcutaneou s injection 2021-05 00:00: 00 Yes [id number] 120mg inject 120 mg under the skin once every month. [facility] galcanezuma b-gnlm prefilled (EMGALITY) subcutaneou s injection 2021-05 00:00: 00 Yes [id number] 120mg inject 120 mg under the skin once every month. [facility] galcanezuma b-gnlm prefilled (EMGALITY) subcutaneou s injection 2021-05 00:00: 00 Yes [id number] 120mg inject 120 mg under the skin once every month. [facility] galcanezuma b-gnlm prefilled (EMGALITY) subcutaneou s injection 2021-05 00:00: 00 Yes [id number] 120mg inject 120 mg under the skin once every month. [facility] galcanezuma b-gnlm prefilled (EMGALITY) subcutaneou s injection 2021-05 00:00: 00 Yes [id number] 120mg inject 120 mg under the skin once every month. [facility] galcanezuma b-gnlm prefilled (EMGALITY) subcutaneou s injection 2021-05 00:00: 00 Yes [id number] 120mg inject 120 mg under the skin once every month. [facility] galcanezuma b-gnlm prefilled (EMGALITY) subcutaneou s injection 2021-05 00:00: 00 Yes [id number] 120mg inject 120 mg under the skin once every month. [facility] galcanezuma b-gnlm prefilled (EMGALITY) subcutaneou s injection 2021-05 00:00: 00 Yes [id number] 120mg inject 120 mg under the skin once every month. [facility] galcanezuma b-gnlm prefilled (EMGALITY) subcutaneou s injection 2021-05 00:00: 00 Yes [id number] 120mg inject 120 mg under the skin once every month. [facility] galcanezuma b-gnlm prefilled (EMGALITY) subcutaneou s injection 2021-05 00:00: 00 Yes [id number] 120mg inject 120 mg under the skin once every month. [facility] galcanezuma b-gnlm prefilled (EMGALITY) subcutaneou s injection 2021-05 00:00: 00 Yes [id number] 120mg inject 120 mg under the skin once every month. [facility] galcanezuma b-gnlm prefilled (EMGALITY) subcutaneou s injection 2021-05 00:00: 00 Yes [id number] 120mg inject 120 mg under the skin once every month. [facility] galcanezuma b-gnlm prefilled (EMGALITY) subcutaneou s injection 2021-05 00:00: 00 Yes [id number] 120mg inject 120 mg under the skin once every month. [facility] galcanezuma b-gnlm prefilled (EMGALITY) subcutaneou s injection 2021-05 00:00: 00 Yes [id number] 120mg inject 120 mg under the skin once every month. [facility] galcanezuma b-gnlm prefilled (EMGALITY) subcutaneou s injection 2021-05 00:00: 00 Yes [id number] 120mg inject 120 mg under the skin once every month. [facility] galcanezuma b-gnlm prefilled (EMGALITY) subcutaneou s injection 2021-05 00:00: 00 Yes [id number] 120mg inject 120 mg under the skin once every month. [facility] galcanezuma b-gnlm prefilled (EMGALITY) subcutaneou s injection 2021-05 00:00: 00 Yes [id number] 120mg inject 120 mg under the skin once every month. [facility] galcanezuma b-gnlm prefilled (EMGALITY) subcutaneou s injection 2021-05 00:00: 00 Yes [id number] 120mg inject 120 mg under the skin once every month. [facility] galcanezuma b-gnlm prefilled (EMGALITY) subcutaneou s injection 2021-05 00:00: 00 Yes [id number] 120mg inject 120 mg under the skin once every month. [facility] galcanezuma b-gnlm prefilled (EMGALITY) subcutaneou s injection 2021-05 00:00: 00 Yes [id number] 120mg inject 120 mg under the skin once every month. [facility] galcanezuma b-gnlm prefilled (EMGALITY) subcutaneou s injection 2021-05 00:00: 00 Yes [id number] 120mg inject 120 mg under the skin once every month. [facility] galcanezuma b-gnlm prefilled (EMGALITY) subcutaneou s injection 2021-05 00:00: 00 Yes [id number] 120mg inject 120 mg under the skin once every month. [facility] galcanezuma b-gnlm prefilled (EMGALITY) subcutaneou s injection 2021-05 00:00: 00 Yes [id number] 120mg inject 120 mg under the skin once every month. [facility] galcanezuma b-gnlm prefilled (EMGALITY) subcutaneou s injection 2021-05 00:00: 00 Yes [id number] 120mg inject 120 mg under the skin once every month. [facility] galcanezuma b-gnlm prefilled (EMGALITY) subcutaneou s injection 2021-05 00:00: 00 Yes [id number] 120mg inject 120 mg under the skin once every month. [facility] galcanezuma b-gnlm prefilled (EMGALITY) subcutaneou s injection 2021-05 00:00: 00 Yes [id number] 120mg inject 120 mg under the skin once every month. [facility] galcanezuma b-gnlm prefilled (EMGALITY) subcutaneou s injection 2021-05 00:00: 00 Yes [id number] 120mg inject 120 mg under the skin once every month. [facility] galcanezuma b-gnlm prefilled (EMGALITY) subcutaneou s injection 2021-05 00:00: 00 Yes [id number] 120mg inject 120 mg under the skin once every month. [facility] galcanezuma b-gnlm prefilled (EMGALITY) subcutaneou s injection 2021-05 00:00: 00 Yes [id number] 120mg inject 120 mg under the skin once every month. [facility] galcanezuma b-gnlm prefilled (EMGALITY) subcutaneou s injection 2021-05 00:00: 00 Yes [id number] 120mg inject 120 mg under the skin once every month. [facility] galcanezuma b-gnlm prefilled (EMGALITY) subcutaneou s injection 2021-05 00:00: 00 Yes [id number] 120mg inject 120 mg under the skin once every month. [facility] galcanezuma b-gnlm prefilled (EMGALITY) subcutaneou s injection 2021-05 00:00: 00 Yes [id number] 120mg inject 120 mg under the skin once every month. [facility] galcanezuma b-gnlm prefilled (EMGALITY) subcutaneou s injection 2021-05 00:00: 00 Yes [id number] 120mg inject 120 mg under the skin once every month. [facility] galcanezuma b-gnlm prefilled (EMGALITY) subcutaneou s injection 2021-05 00:00: 00 Yes [id number] 120mg inject 120 mg under the skin once every month. [facility] galcanezuma b-gnlm prefilled (EMGALITY) subcutaneou s injection 2021-05 00:00: 00 Yes [id number] 120mg inject 120 mg under the skin once every month. [facility] galcanezuma b-gnlm prefilled (EMGALITY) subcutaneou s injection 2021-05 00:00: 00 Yes [id number] 120mg inject 120 mg under the skin once every month. [facility] methocarbam oL (ROBAXIN) injection 1,000 mg 2021-05 04:00: 00 Yes 1000mg 1,000 mg, Intravenou s, Q8H, First dose on 04/07/22 at 2200, Until Discontinu ed, Routine [facility] ketorolac (TORADOL) injection 30 mg 2021-05 00:45: 00 04-07 23:45 :00 No 30mg 30 mg, Slow IV Push, ONCE, 1 dose, On 04/07/22 at 1845, Routine [facility] HYDROcodone -acetaminop hen (NORCO) 10-325 mg tablet 1 tablet 2021-05 00:30: 00 04-07 23:45 :00 No 1{tbl} 1 tablet, Oral, ONCE NOW, 1 dose, On 04/07/22 at 1830, Routine [facility] diphenhydrA MINE (BENADRYL) injection 12.5 mg 2021-05 23:45: 00 04-07 23:46 :00 No 12.5mg 12.5 mg, Slow IV Push, ONCE, 1 dose, On 04/07/22 at 1745, STAT [facility] butorphanol (STADOL) injection 1 mg 2021-05 23:15: 00 04-07 22:48 :00 No 1mg 1 mg, IV Push, ONCE, 1 dose, On 04/07/22 at 1715, Routine [facility] NaCl 0.9% (NS) bolus infusion 1,000 mL 2021-05 23:15: 00 04-07 23:49 :00 No 1000mL at 999 mL/hr, 1,000 mL, IV Infusion, ONCE, 1 dose, On 04/07/22 at 1715, [place] [facility] ketorolac (TORADOL) injection 15 mg 2021-05 19:30: 00 03-24 18:45 :00 No 15mg 15 mg, Slow IV Push, ONCE, 1 dose, On 03/24/22 at 1330, Routine [facility] butorphanol (STADOL) injection 1 mg 2021-05 18:00: 00 03-24 17:26 :00 No 1mg 1 mg, Intravenou s, ONCE, 1 dose, On 03/24/22 at 1200, Routine [facility] proMETHazin e (PHENERGAN) 25 mg in NaCl 0.9% (NS) 50 mL IV piggyback 2021-05 18:00: 00 03-24 18:13 :00 No 25mg 25 mg, IV Piggyback, ONCE, 1 dose, On 03/24/22 at 1200, [place] [facility] butorphanol (STADOL) injection 1 mg 2021-05 17:15: 00 03-24 16:26 :00 No 1mg 1 mg, IV Push, ONCE, 1 dose, On 03/24/22 at 1115, Routine [facility] diphenhydrA MINE (BENADRYL) injection 25 mg 2021-05 15:30: 00 03-24 15:40 :00 No 25mg 25 mg, Slow IV Push, ONCE, 1 dose, On 03/24/22 at 0930, STAT [facility] ondansetron (ZOFRAN (PF)) injection 4 mg 2021-05 15:30: 00 03-24 14:25 :00 No 4mg 4 mg, Slow IV Push, ONCE, 1 dose, On 03/24/22 at 0930, [place] [facility] NaCl 0.9% (NS) IV infusion 1,000 mL 2021-05 15:15: 00 03-24 17:25 :00 No 1000mL at 999 mL/hr, Intravenou s, ONCE, 1 dose, On 03/24/22 at 0915, [facility] magnesium sulfate in water 2 gram/50 mL (4 %) infusion 2 g 2021-05 15:00: 00 03-24 14:47 :00 No 2g 2 g, IV Piggyback, Administer over 20 Minutes, ONCE, 1 dose, On 03/24/22 at 0900, Routine [facility] dexamethaso ne sod phos PF injection 6 mg 2021-05 14:15: 00 03-24 14:14 :00 No 6mg 6 mg, Slow IV Push, ONCE, 1 dose, On 03/24/22 at 0815, 1 mL [facility] diphenhydrA MINE (BENADRYL) injection 25 mg 2021-05 14:15: 00 03-24 14:16 :00 No 25mg 25 mg, Slow IV Push, ONCE, 1 dose, On 03/24/22 at 0815, STAT [facility] ALBUTEROL INHALE 2021-05 07:58: 13 03-24 00:00 :00 No [facility] rizatriptan 10 mg tablet 2021-05 00:00: 00 Yes [id number] 10mg Take 1 tablet by mouth as needed for Migraine. May repeat in 2 hours if needed [facility] Butalbital- Acetaminoph en-Caff (FIORICET) 50-300-40 mg per capsule 2021-05 00:00: 00 Yes [id number] 1{capsu le} Take 1 capsule by mouth every 6 (six) hours as needed for Other (headache) . [facility] magnesium oxide 200 mg magnesium Tab 2021-05 00:00: 00 Yes [id number] 200mg Take 200 mg by mouth 2 (two) times daily. Indication s: headache [facility] rizatriptan 10 mg tablet 2021-05 00:00: 00 Yes [id number] 10mg Take 1 tablet by mouth as needed for Migraine. May repeat in 2 hours if needed [facility] Butalbital- Acetaminoph en-Caff (FIORICET) 50-300-40 mg per capsule 2021-05 00:00: 00 Yes [id number] 1{capsu le} Take 1 capsule by mouth every 6 (six) hours as needed for Other (headache) . [facility] magnesium oxide 200 mg magnesium Tab 2021-05 00:00: 00 Yes [id number] 200mg Take 200 mg by mouth 2 (two) times daily. Indication s: headache [facility] rizatriptan 10 mg tablet 2021-05 00:00: 00 Yes [id number] 10mg Take 1 tablet by mouth as needed for Migraine. May repeat in 2 hours if needed [facility] Butalbital- Acetaminoph en-Caff (FIORICET) 50-300-40 mg per capsule 2021-05 00:00: 00 Yes [id number] 1{capsu le} Take 1 capsule by mouth every 6 (six) hours as needed for Other (headache) . [facility] magnesium oxide 200 mg magnesium Tab 2021-05 00:00: 00 Yes [id number] 200mg Take 200 mg by mouth 2 (two) times daily. Indication s: headache [facility] rizatriptan 10 mg tablet 2021-05 00:00: 00 Yes [id number] 10mg Take 1 tablet by mouth as needed for Migraine. May repeat in 2 hours if needed [facility] Butalbital- Acetaminoph en-Caff (FIORICET) 50-300-40 mg per capsule 2021-05 00:00: 00 Yes [id number] 1{capsu le} Take 1 capsule by mouth every 6 (six) hours as needed for Other (headache) . [facility] rizatriptan 10 mg tablet 2021-05 00:00: 00 Yes [id number] 10mg Take 1 tablet by mouth as needed for Migraine. May repeat in 2 hours if needed [facility] Butalbital- Acetaminoph en-Caff (FIORICET) 50-300-40 mg per capsule 2021-05 00:00: 00 Yes [id number] 1{capsu le} Take 1 capsule by mouth every 6 (six) hours as needed for Other (headache) . [facility] rizatriptan 10 mg tablet 2021-05 00:00: 00 Yes [id number] 10mg Take 1 tablet by mouth as needed for Migraine. May repeat in 2 hours if needed [facility] Butalbital- Acetaminoph en-Caff (FIORICET) 50-300-40 mg per capsule 2021-05 00:00: 00 Yes [id number] 1{capsu le} Take 1 capsule by mouth every 6 (six) hours as needed for Other (headache) . [facility] rizatriptan 10 mg tablet 2021-05 00:00: 00 Yes [id number] 10mg Take 1 tablet by mouth as needed for Migraine. May repeat in 2 hours if needed [facility] Butalbital- Acetaminoph en-Caff (FIORICET) 50-300-40 mg per capsule 2021-05 00:00: 00 Yes [id number] 1{capsu le} Take 1 capsule by mouth every 6 (six) hours as needed for Other (headache) . [facility] rizatriptan 10 mg tablet 2021-05 00:00: 00 Yes [id number] 10mg Take 1 tablet by mouth as needed for Migraine. May repeat in 2 hours if needed [facility] Butalbital- Acetaminoph en-Caff (FIORICET) 50-300-40 mg per capsule 2021-05 00:00: 00 Yes [id number] 1{capsu le} Take 1 capsule by mouth every 6 (six) hours as needed for Other (headache) . [facility] rizatriptan 10 mg tablet 2021-05 00:00: 00 Yes [id number] 10mg Take 1 tablet by mouth as needed for Migraine. May repeat in 2 hours if needed [facility] Butalbital- Acetaminoph en-Caff (FIORICET) 50-300-40 mg per capsule 2021-05 00:00: 00 Yes [id number] 1{capsu le} Take 1 capsule by mouth every 6 (six) hours as needed for Other (headache) . [facility] rizatriptan 10 mg tablet 2021-05 00:00: 00 Yes [id number] 10mg Take 1 tablet by mouth as needed for Migraine. May repeat in 2 hours if needed [facility] Butalbital- Acetaminoph en-Caff (FIORICET) 50-300-40 mg per capsule 2021-05 00:00: 00 Yes [id number] 1{capsu le} Take 1 capsule by mouth every 6 (six) hours as needed for Other (headache) . [facility] rizatriptan 10 mg tablet 2021-05 00:00: 00 Yes [id number] 10mg Take 1 tablet by mouth as needed for Migraine. May repeat in 2 hours if needed [facility] Butalbital- Acetaminoph en-Caff (FIORICET) 50-300-40 mg per capsule 2021-05 00:00: 00 Yes [id number] 1{capsu le} Take 1 capsule by mouth every 6 (six) hours as needed for Other (headache) . [facility] rizatriptan 10 mg tablet 2021-05 00:00: 00 Yes [id number] 10mg Take 1 tablet by mouth as needed for Migraine. May repeat in 2 hours if needed [facility] Butalbital- Acetaminoph en-Caff (FIORICET) 50-300-40 mg per capsule 2021-05 00:00: 00 Yes [id number] 1{capsu le} Take 1 capsule by mouth every 6 (six) hours as needed for Other (headache) . [facility] rizatriptan 10 mg tablet 2021-05 00:00: 00 Yes [id number] 10mg Take 1 tablet by mouth as needed for Migraine. May repeat in 2 hours if needed [facility] Butalbital- Acetaminoph en-Caff (FIORICET) 50-300-40 mg per capsule 2021-05 00:00: 00 Yes [id number] 1{capsu le} Take 1 capsule by mouth every 6 (six) hours as needed for Other (headache) . [facility] rizatriptan 10 mg tablet 2021-05 00:00: 00 Yes [id number] 10mg Take 1 tablet by mouth as needed for Migraine. May repeat in 2 hours if needed [facility] Butalbital- Acetaminoph en-Caff (FIORICET) 50-300-40 mg per capsule 2021-05 00:00: 00 Yes [id number] 1{capsu le} Take 1 capsule by mouth every 6 (six) hours as needed for Other (headache) . [facility] rizatriptan 10 mg tablet 2021-05 00:00: 00 Yes [id number] 10mg Take 1 tablet by mouth as needed for Migraine. May repeat in 2 hours if needed [facility] Butalbital- Acetaminoph en-Caff (FIORICET) 50-300-40 mg per capsule 2021-05 00:00: 00 Yes [id number] 1{capsu le} Take 1 capsule by mouth every 6 (six) hours as needed for Other (headache) . [facility] rizatriptan 10 mg tablet 2021-05 00:00: 00 Yes [id number] 10mg Take 1 tablet by mouth as needed for Migraine. May repeat in 2 hours if needed [facility] Butalbital- Acetaminoph en-Caff (FIORICET) 50-300-40 mg per capsule 2021-05 00:00: 00 Yes [id number] 1{capsu le} Take 1 capsule by mouth every 6 (six) hours as needed for Other (headache) . [facility] rizatriptan 10 mg tablet 2021-05 00:00: 00 Yes [id number] 10mg Take 1 tablet by mouth as needed for Migraine. May repeat in 2 hours if needed [facility] Butalbital- Acetaminoph en-Caff (FIORICET) 50-300-40 mg per capsule 2021-05 00:00: 00 Yes [id number] 1{capsu le} Take 1 capsule by mouth every 6 (six) hours as needed for Other (headache) . [facility] rizatriptan 10 mg tablet 2021-05 00:00: 00 Yes [id number] 10mg Take 1 tablet by mouth as needed for Migraine. May repeat in 2 hours if needed [facility] Butalbital- Acetaminoph en-Caff (FIORICET) 50-300-40 mg per capsule 2021-05 00:00: 00 Yes [id number] 1{capsu le} Take 1 capsule by mouth every 6 (six) hours as needed for Other (headache) . [facility] rizatriptan 10 mg tablet 2021-05 00:00: 00 Yes [id number] 10mg Take 1 tablet by mouth as needed for Migraine. May repeat in 2 hours if needed [facility] Butalbital- Acetaminoph en-Caff (FIORICET) 50-300-40 mg per capsule 2021-05 00:00: 00 Yes [id number] 1{capsu le} Take 1 capsule by mouth every 6 (six) hours as needed for Other (headache) . [facility] rizatriptan 10 mg tablet 2021-05 00:00: 00 Yes [id number] 10mg Take 1 tablet by mouth as needed for Migraine. May repeat in 2 hours if needed [facility] Butalbital- Acetaminoph en-Caff (FIORICET) 50-300-40 mg per capsule 2021-05 00:00: 00 Yes [id number] 1{capsu le} Take 1 capsule by mouth every 6 (six) hours as needed for Other (headache) . [facility] rizatriptan 10 mg tablet 2021-05 00:00: 00 Yes [id number] 10mg Take 1 tablet by mouth as needed for Migraine. May repeat in 2 hours if needed [facility] Butalbital- Acetaminoph en-Caff (FIORICET) 50-300-40 mg per capsule 2021-05 00:00: 00 Yes [id number] 1{capsu le} Take 1 capsule by mouth every 6 (six) hours as needed for Other (headache) . [facility] rizatriptan 10 mg tablet 2021-05 00:00: 00 Yes [id number] 10mg Take 1 tablet by mouth as needed for Migraine. May repeat in 2 hours if needed [facility] Butalbital- Acetaminoph en-Caff (FIORICET) 50-300-40 mg per capsule 2021-05 00:00: 00 Yes [id number] 1{capsu le} Take 1 capsule by mouth every 6 (six) hours as needed for Other (headache) . [facility] rizatriptan 10 mg tablet 2021-05 00:00: 00 Yes [id number] 10mg Take 1 tablet by mouth as needed for Migraine. May repeat in 2 hours if needed [facility] Butalbital- Acetaminoph en-Caff (FIORICET) 50-300-40 mg per capsule 2021-05 00:00: 00 Yes [id number] 1{capsu le} Take 1 capsule by mouth every 6 (six) hours as needed for Other (headache) . [facility] rizatriptan 10 mg tablet 2021-05 00:00: 00 Yes [id number] 10mg Take 1 tablet by mouth as needed for Migraine. May repeat in 2 hours if needed [facility] Butalbital- Acetaminoph en-Caff (FIORICET) 50-300-40 mg per capsule 2021-05 00:00: 00 Yes [id number] 1{capsu le} Take 1 capsule by mouth every 6 (six) hours as needed for Other (headache) . [facility] rizatriptan 10 mg tablet 2021-05 00:00: 00 Yes [id number] 10mg Take 1 tablet by mouth as needed for Migraine. May repeat in 2 hours if needed [facility] Butalbital- Acetaminoph en-Caff (FIORICET) 50-300-40 mg per capsule 2021-05 00:00: 00 Yes [id number] 1{capsu le} Take 1 capsule by mouth every 6 (six) hours as needed for Other (headache) . [facility] rizatriptan 10 mg tablet 2021-05 00:00: 00 Yes [id number] 10mg Take 1 tablet by mouth as needed for Migraine. May repeat in 2 hours if needed [facility] Butalbital- Acetaminoph en-Caff (FIORICET) 50-300-40 mg per capsule 2021-05 00:00: 00 Yes [id number] 1{capsu le} Take 1 capsule by mouth every 6 (six) hours as needed for Other (headache) . [facility] rizatriptan 10 mg tablet 2021-05 00:00: 00 Yes [id number] 10mg Take 1 tablet by mouth as needed for Migraine. May repeat in 2 hours if needed [facility] Butalbital- Acetaminoph en-Caff (FIORICET) 50-300-40 mg per capsule 2021-05 00:00: 00 Yes [id number] 1{capsu le} Take 1 capsule by mouth every 6 (six) hours as needed for Other (headache) . [facility] rizatriptan 10 mg tablet 2021-05 00:00: 00 Yes [id number] 10mg Take 1 tablet by mouth as needed for Migraine. May repeat in 2 hours if needed [facility] Butalbital- Acetaminoph en-Caff (FIORICET) 50-300-40 mg per capsule 2021-05 00:00: 00 Yes [id number] 1{capsu le} Take 1 capsule by mouth every 6 (six) hours as needed for Other (headache) . [facility] rizatriptan 10 mg tablet 2021-05 00:00: 00 Yes [id number] 10mg Take 1 tablet by mouth as needed for Migraine. May repeat in 2 hours if needed [facility] Butalbital- Acetaminoph en-Caff (FIORICET) 50-300-40 mg per capsule 2021-05 00:00: 00 Yes [id number] 1{capsu le} Take 1 capsule by mouth every 6 (six) hours as needed for Other (headache) . [facility] rizatriptan 10 mg tablet 2021-05 00:00: 00 Yes [id number] 10mg Take 1 tablet by mouth as needed for Migraine. May repeat in 2 hours if needed [facility] Butalbital- Acetaminoph en-Caff (FIORICET) 50-300-40 mg per capsule 2021-05 00:00: 00 Yes [id number] 1{capsu le} Take 1 capsule by mouth every 6 (six) hours as needed for Other (headache) . [facility] rizatriptan 10 mg tablet 2021-05 00:00: 00 Yes [id number] 10mg Take 1 tablet by mouth as needed for Migraine. May repeat in 2 hours if needed [facility] Butalbital- Acetaminoph en-Caff (FIORICET) 50-300-40 mg per capsule 2021-05 00:00: 00 Yes [id number] 1{capsu le} Take 1 capsule by mouth every 6 (six) hours as needed for Other (headache) . [facility] rizatriptan 10 mg tablet 2021-05 00:00: 00 Yes [id number] 10mg Take 1 tablet by mouth as needed for Migraine. May repeat in 2 hours if needed [facility] Butalbital- Acetaminoph en-Caff (FIORICET) 50-300-40 mg per capsule 2021-05 00:00: 00 Yes [id number] 1{capsu le} Take 1 capsule by mouth every 6 (six) hours as needed for Other (headache) . [facility] rizatriptan 10 mg tablet 2021-05 00:00: 00 Yes [id number] 10mg Take 1 tablet by mouth as needed for Migraine. May repeat in 2 hours if needed [facility] Butalbital- Acetaminoph en-Caff (FIORICET) 50-300-40 mg per capsule 2021-05 00:00: 00 Yes [id number] 1{capsu le} Take 1 capsule by mouth every 6 (six) hours as needed for Other (headache) . [facility] rizatriptan 10 mg tablet 2021-05 00:00: 00 Yes [id number] 10mg Take 1 tablet by mouth as needed for Migraine. May repeat in 2 hours if needed [facility] Butalbital- Acetaminoph en-Caff (FIORICET) 50-300-40 mg per capsule 2021-05 00:00: 00 Yes [id number] 1{capsu le} Take 1 capsule by mouth every 6 (six) hours as needed for Other (headache) . [facility] rizatriptan 10 mg tablet 2021-05 00:00: 00 Yes [id number] 10mg Take 1 tablet by mouth as needed for Migraine. May repeat in 2 hours if needed [facility] Butalbital- Acetaminoph en-Caff (FIORICET) 50-300-40 mg per capsule 2021-05 00:00: 00 Yes [id number] 1{capsu le} Take 1 capsule by mouth every 6 (six) hours as needed for Other (headache) . [facility] rizatriptan 10 mg tablet 2021-05 00:00: 00 Yes [id number] 10mg Take 1 tablet by mouth as needed for Migraine. May repeat in 2 hours if needed [facility] Butalbital- Acetaminoph en-Caff (FIORICET) 50-300-40 mg per capsule 2021-05 00:00: 00 Yes [id number] 1{capsu le} Take 1 capsule by mouth every 6 (six) hours as needed for Other (headache) . [facility] rizatriptan 10 mg tablet 2021-05 00:00: 00 Yes [id number] 10mg Take 1 tablet by mouth as needed for Migraine. May repeat in 2 hours if needed [facility] Butalbital- Acetaminoph en-Caff (FIORICET) 50-300-40 mg per capsule 2021-05 00:00: 00 Yes [id number] 1{capsu le} Take 1 capsule by mouth every 6 (six) hours as needed for Other (headache) . [facility] rizatriptan 10 mg tablet 2021-05 00:00: 00 Yes [id number] 10mg Take 1 tablet by mouth as needed for Migraine. May repeat in 2 hours if needed [facility] Butalbital- Acetaminoph en-Caff (FIORICET) 50-300-40 mg per capsule 2021-05 00:00: 00 Yes [id number] 1{capsu le} Take 1 capsule by mouth every 6 (six) hours as needed for Other (headache) . [facility] rizatriptan 10 mg tablet 2021-05 00:00: 00 Yes [id number] 10mg Take 1 tablet by mouth as needed for Migraine. May repeat in 2 hours if needed [facility] Butalbital- Acetaminoph en-Caff (FIORICET) 50-300-40 mg per capsule 2021-05 00:00: 00 Yes [id number] 1{capsu le} Take 1 capsule by mouth every 6 (six) hours as needed for Other (headache) . [facility] rizatriptan 10 mg tablet 2021-05 00:00: 00 Yes [id number] 10mg Take 1 tablet by mouth as needed for Migraine. May repeat in 2 hours if needed [facility] Butalbital- Acetaminoph en-Caff (FIORICET) 50-300-40 mg per capsule 2021-05 00:00: 00 Yes [id number] 1{capsu le} Take 1 capsule by mouth every 6 (six) hours as needed for Other (headache) . [facility] rizatriptan 10 mg tablet 2021-05 00:00: 00 Yes [id number] 10mg Take 1 tablet by mouth as needed for Migraine. May repeat in 2 hours if needed [facility] Butalbital- Acetaminoph en-Caff (FIORICET) 50-300-40 mg per capsule 2021-05 00:00: 00 Yes [id number] 1{capsu le} Take 1 capsule by mouth every 6 (six) hours as needed for Other (headache) . [facility] magnesium oxide 200 mg magnesium Tab 2021-05 00:00: 00 04-07 00:00 :00 No [id number] 200mg Take 200 mg by mouth 2 (two) times daily. Indication s: headache [facility] SUMAtriptan 50 mg tablet 2021-05 00:00: 00 Yes 50mg Take 1 tablet by mouth as needed for Migraine. Take one tablet at onset of migraine, may take another tablet 2 hours after initial dose if no relief with first dose. DO NOT EXCEED 100mg in a 24 hour period. [facility] SUMAtriptan 50 mg tablet 2021-05 00:00: 00 Yes 50mg Take 1 tablet by mouth as needed for Migraine. Take one tablet at onset of migraine, may take another tablet 2 hours after initial dose if no relief with first dose. DO NOT EXCEED 100mg in a 24 hour period. [facility] SUMAtriptan 50 mg tablet 2021-05 00:00: 00 Yes 50mg Take 1 tablet by mouth as needed for Migraine. Take one tablet at onset of migraine, may take another tablet 2 hours after initial dose if no relief with first dose. DO NOT EXCEED 100mg in a 24 hour period. [facility] SUMAtriptan 50 mg tablet 2021-05 00:00: 00 Yes 50mg Take 1 tablet by mouth as needed for Migraine. Take one tablet at onset of migraine, may take another tablet 2 hours after initial dose if no relief with first dose. DO NOT EXCEED 100mg in a 24 hour period. [facility] SUMAtriptan 50 mg tablet 2021-05 00:00: 00 Yes 50mg Take 1 tablet by mouth as needed for Migraine. Take one tablet at onset of migraine, may take another tablet 2 hours after initial dose if no relief with first dose. DO NOT EXCEED 100mg in a 24 hour period. [facility] SUMAtriptan 50 mg tablet 2021-05 00:00: 00 Yes 50mg Take 1 tablet by mouth as needed for Migraine. Take one tablet at onset of migraine, may take another tablet 2 hours after initial dose if no relief with first dose. DO NOT EXCEED 100mg in a 24 hour period. [facility] SUMAtriptan 50 mg tablet 2021-05 00:00: 00 Yes 50mg Take 1 tablet by mouth as needed for Migraine. Take one tablet at onset of migraine, may take another tablet 2 hours after initial dose if no relief with first dose. DO NOT EXCEED 100mg in a 24 hour period. [facility] SUMAtriptan 50 mg tablet 2021-05 00:00: 00 Yes 50mg Take 1 tablet by mouth as needed for Migraine. Take one tablet at onset of migraine, may take another tablet 2 hours after initial dose if no relief with first dose. DO NOT EXCEED 100mg in a 24 hour period. [facility] SUMAtriptan 50 mg tablet 2021-05 00:00: 00 Yes 50mg Take 1 tablet by mouth as needed for Migraine. Take one tablet at onset of migraine, may take another tablet 2 hours after initial dose if no relief with first dose. DO NOT EXCEED 100mg in a 24 hour period. [facility] SUMAtriptan 50 mg tablet 2021-05 00:00: 00 Yes 50mg Take 1 tablet by mouth as needed for Migraine. Take one tablet at onset of migraine, may take another tablet 2 hours after initial dose if no relief with first dose. DO NOT EXCEED 100mg in a 24 hour period. [facility] SUMAtriptan 50 mg tablet 2021-05 00:00: 00 Yes 50mg Take 1 tablet by mouth as needed for Migraine. Take one tablet at onset of migraine, may take another tablet 2 hours after initial dose if no relief with first dose. DO NOT EXCEED 100mg in a 24 hour period. [facility] SUMAtriptan 50 mg tablet 2021-05 00:00: 00 Yes 50mg Take 1 tablet by mouth as needed for Migraine. Take one tablet at onset of migraine, may take another tablet 2 hours after initial dose if no relief with first dose. DO NOT EXCEED 100mg in a 24 hour period. [facility] SUMAtriptan 50 mg tablet 2021-05 00:00: 00 Yes 50mg Take 1 tablet by mouth as needed for Migraine. Take one tablet at onset of migraine, may take another tablet 2 hours after initial dose if no relief with first dose. DO NOT EXCEED 100mg in a 24 hour period. [facility] SUMAtriptan 50 mg tablet 2021-05 00:00: 00 Yes 50mg Take 1 tablet by mouth as needed for Migraine. Take one tablet at onset of migraine, may take another tablet 2 hours after initial dose if no relief with first dose. DO NOT EXCEED 100mg in a 24 hour period. [facility] SUMAtriptan 50 mg tablet 2021-05 00:00: 00 Yes 50mg Take 1 tablet by mouth as needed for Migraine. Take one tablet at onset of migraine, may take another tablet 2 hours after initial dose if no relief with first dose. DO NOT EXCEED 100mg in a 24 hour period. [facility] SUMAtriptan 50 mg tablet 2021-05 00:00: 00 Yes 50mg Take 1 tablet by mouth as needed for Migraine. Take one tablet at onset of migraine, may take another tablet 2 hours after initial dose if no relief with first dose. DO NOT EXCEED 100mg in a 24 hour period. [facility] SUMAtriptan 50 mg tablet 2021-05 00:00: 00 Yes 50mg Take 1 tablet by mouth as needed for Migraine. Take one tablet at onset of migraine, may take another tablet 2 hours after initial dose if no relief with first dose. DO NOT EXCEED 100mg in a 24 hour period. [facility] SUMAtriptan 50 mg tablet 2021-05 00:00: 00 Yes 50mg Take 1 tablet by mouth as needed for Migraine. Take one tablet at onset of migraine, may take another tablet 2 hours after initial dose if no relief with first dose. DO NOT EXCEED 100mg in a 24 hour period. [facility] SUMAtriptan 50 mg tablet 2021-05 00:00: 00 Yes 50mg Take 1 tablet by mouth as needed for Migraine. Take one tablet at onset of migraine, may take another tablet 2 hours after initial dose if no relief with first dose. DO NOT EXCEED 100mg in a 24 hour period. [facility] SUMAtriptan 50 mg tablet 2021-05 00:00: 00 Yes 50mg Take 1 tablet by mouth as needed for Migraine. Take one tablet at onset of migraine, may take another tablet 2 hours after initial dose if no relief with first dose. DO NOT EXCEED 100mg in a 24 hour period. [facility] SUMAtriptan 50 mg tablet 2021-05 00:00: 00 Yes 50mg Take 1 tablet by mouth as needed for Migraine. Take one tablet at onset of migraine, may take another tablet 2 hours after initial dose if no relief with first dose. DO NOT EXCEED 100mg in a 24 hour period. [facility] SUMAtriptan 50 mg tablet 2021-05 00:00: 00 Yes 50mg Take 1 tablet by mouth as needed for Migraine. Take one tablet at onset of migraine, may take another tablet 2 hours after initial dose if no relief with first dose. DO NOT EXCEED 100mg in a 24 hour period. [facility] SUMAtriptan 50 mg tablet 2021-05 00:00: 00 Yes 50mg Take 1 tablet by mouth as needed for Migraine. Take one tablet at onset of migraine, may take another tablet 2 hours after initial dose if no relief with first dose. DO NOT EXCEED 100mg in a 24 hour period. [facility] SUMAtriptan 50 mg tablet 2021-05 00:00: 00 Yes 50mg Take 1 tablet by mouth as needed for Migraine. Take one tablet at onset of migraine, may take another tablet 2 hours after initial dose if no relief with first dose. DO NOT EXCEED 100mg in a 24 hour period. [facility] SUMAtriptan 50 mg tablet 2021-05 00:00: 00 Yes 50mg Take 1 tablet by mouth as needed for Migraine. Take one tablet at onset of migraine, may take another tablet 2 hours after initial dose if no relief with first dose. DO NOT EXCEED 100mg in a 24 hour period. [facility] SUMAtriptan 50 mg tablet 2021-05 00:00: 00 Yes 50mg Take 1 tablet by mouth as needed for Migraine. Take one tablet at onset of migraine, may take another tablet 2 hours after initial dose if no relief with first dose. DO NOT EXCEED 100mg in a 24 hour period. [facility] SUMAtriptan 50 mg tablet 2021-05 00:00: 00 Yes 50mg Take 1 tablet by mouth as needed for Migraine. Take one tablet at onset of migraine, may take another tablet 2 hours after initial dose if no relief with first dose. DO NOT EXCEED 100mg in a 24 hour period. [facility] SUMAtriptan 50 mg tablet 2021-05 00:00: 00 Yes 50mg Take 1 tablet by mouth as needed for Migraine. Take one tablet at onset of migraine, may take another tablet 2 hours after initial dose if no relief with first dose. DO NOT EXCEED 100mg in a 24 hour period. [facility] SUMAtriptan 50 mg tablet 2021-05 00:00: 00 Yes 50mg Take 1 tablet by mouth as needed for Migraine. Take one tablet at onset of migraine, may take another tablet 2 hours after initial dose if no relief with first dose. DO NOT EXCEED 100mg in a 24 hour period. [facility] SUMAtriptan 50 mg tablet 2021-05 00:00: 00 Yes 50mg Take 1 tablet by mouth as needed for Migraine. Take one tablet at onset of migraine, may take another tablet 2 hours after initial dose if no relief with first dose. DO NOT EXCEED 100mg in a 24 hour period. [facility] SUMAtriptan 50 mg tablet 2021-05 00:00: 00 Yes 50mg Take 1 tablet by mouth as needed for Migraine. Take one tablet at onset of migraine, may take another tablet 2 hours after initial dose if no relief with first dose. DO NOT EXCEED 100mg in a 24 hour period. [facility] SUMAtriptan 50 mg tablet 2021-05 00:00: 00 Yes 50mg Take 1 tablet by mouth as needed for Migraine. Take one tablet at onset of migraine, may take another tablet 2 hours after initial dose if no relief with first dose. DO NOT EXCEED 100mg in a 24 hour period. [facility] SUMAtriptan 50 mg tablet 2021-05 00:00: 00 Yes 50mg Take 1 tablet by mouth as needed for Migraine. Take one tablet at onset of migraine, may take another tablet 2 hours after initial dose if no relief with first dose. DO NOT EXCEED 100mg in a 24 hour period. [facility] SUMAtriptan 50 mg tablet 2021-05 00:00: 00 Yes 50mg Take 1 tablet by mouth as needed for Migraine. Take one tablet at onset of migraine, may take another tablet 2 hours after initial dose if no relief with first dose. DO NOT EXCEED 100mg in a 24 hour period. [facility] SUMAtriptan 50 mg tablet 2021-05 00:00: 00 Yes 50mg Take 1 tablet by mouth as needed for Migraine. Take one tablet at onset of migraine, may take another tablet 2 hours after initial dose if no relief with first dose. DO NOT EXCEED 100mg in a 24 hour period. [facility] SUMAtriptan 50 mg tablet 2021-05 00:00: 00 Yes 50mg Take 1 tablet by mouth as needed for Migraine. Take one tablet at onset of migraine, may take another tablet 2 hours after initial dose if no relief with first dose. DO NOT EXCEED 100mg in a 24 hour period. [facility] SUMAtriptan 50 mg tablet 2021-05 00:00: 00 Yes 50mg Take 1 tablet by mouth as needed for Migraine. Take one tablet at onset of migraine, may take another tablet 2 hours after initial dose if no relief with first dose. DO NOT EXCEED 100mg in a 24 hour period. [facility] SUMAtriptan 50 mg tablet 2021-05 00:00: 00 Yes 50mg Take 1 tablet by mouth as needed for Migraine. Take one tablet at onset of migraine, may take another tablet 2 hours after initial dose if no relief with first dose. DO NOT EXCEED 100mg in a 24 hour period. [facility] SUMAtriptan 50 mg tablet 2021-05 00:00: 00 Yes 50mg Take 1 tablet by mouth as needed for Migraine. Take one tablet at onset of migraine, may take another tablet 2 hours after initial dose if no relief with first dose. DO NOT EXCEED 100mg in a 24 hour period. [facility] SUMAtriptan 50 mg tablet 2021-05 00:00: 00 Yes 50mg Take 1 tablet by mouth as needed for Migraine. Take one tablet at onset of migraine, may take another tablet 2 hours after initial dose if no relief with first dose. DO NOT EXCEED 100mg in a 24 hour period. [facility] SUMAtriptan 50 mg tablet 2021-05 00:00: 00 Yes 50mg Take 1 tablet by mouth as needed for Migraine. Take one tablet at onset of migraine, may take another tablet 2 hours after initial dose if no relief with first dose. DO NOT EXCEED 100mg in a 24 hour period. [facility] SUMAtriptan 50 mg tablet 2021-05 00:00: 00 Yes 50mg Take 1 tablet by mouth as needed for Migraine. Take one tablet at onset of migraine, may take another tablet 2 hours after initial dose if no relief with first dose. DO NOT EXCEED 100mg in a 24 hour period. [facility] SUMAtriptan 50 mg tablet 2021-05 00:00: 00 Yes 50mg Take 1 tablet by mouth as needed for Migraine. Take one tablet at onset of migraine, may take another tablet 2 hours after initial dose if no relief with first dose. DO NOT EXCEED 100mg in a 24 hour period. [facility] SUMAtriptan 50 mg tablet 2021-05 00:00: 00 Yes 50mg Take 1 tablet by mouth as needed for Migraine. Take one tablet at onset of migraine, may take another tablet 2 hours after initial dose if no relief with first dose. DO NOT EXCEED 100mg in a 24 hour period. [facility] SUMAtriptan 50 mg tablet 2021-05 00:00: 00 Yes 50mg Take 1 tablet by mouth as needed for Migraine. Take one tablet at onset of migraine, may take another tablet 2 hours after initial dose if no relief with first dose. DO NOT EXCEED 100mg in a 24 hour period. [facility] FENTanyl PF (SUBLIMAZE (PF)) injection 50 mcg 2021-05 15:30: 00 03-15 14:56 :00 No 50ug 50 mcg, Slow IV Push, ONCE, 1 dose, On Kathie 03/15/22 at 1030, Routine [facility] proMETHazin e (PHENERGAN) tablet 25 mg 2021-05 14:45: 00 03-15 14:55 :00 No 25mg 25 mg, Oral, ONCE, 1 dose, On Kathie 03/15/22 at 0945, [place] [facility] FENTanyl PF (SUBLIMAZE (PF)) injection 50 mcg 2021-05 14:45: 00 03-15 13:58 :00 No 50ug 50 mcg, Slow IV Push, ONCE, 1 dose, On Kathie 03/15/22 at 0945, Routine [facility] ondansetron (ZOFRAN (PF)) injection 4 mg 2021-05 14:00: 00 03-15 13:58 :00 No 4mg 4 mg, Slow IV Push, ONCE, 1 dose, On Kathie 03/15/22 at 0900, [place] [facility] ondansetron 4 mg disintegrat ing tablet 2021-05 00:00: 00 Yes [id number] 4mg Take 1 tablet by mouth every 8 (eight) hours as needed for Nausea and Vomiting (N/V). [facility] ketorolac 10 mg tablet 2021-05 00:00: 00 Yes [id number] 10mg Take 1 tablet by mouth every 6 (six) hours as needed for Pain (scale 7-10). [facility] proMETHazin e 25 mg tablet 2021-05 00:00: 00 Yes [id number] 25mg Take 1 tablet by mouth every 6 (six) hours as needed for N/V unresponsi ve to Ondansetro n. [facility] ondansetron 4 mg disintegrat ing tablet 2021-05 00:00: 00 Yes [id number] 4mg Take 1 tablet by mouth every 8 (eight) hours as needed for Nausea and Vomiting (N/V). [facility] ketorolac 10 mg tablet 2021-05 00:00: 00 Yes [id number] 10mg Take 1 tablet by mouth every 6 (six) hours as needed for Pain (scale 7-10). [facility] proMETHazin e 25 mg tablet 2021-05 00:00: 00 Yes [id number] 25mg Take 1 tablet by mouth every 6 (six) hours as needed for N/V unresponsi ve to Ondansetro n. [facility] carvediloL 25 mg tablet 2021-05 00:00: 00 Yes [id number] 25mg Take 1 tablet by mouth in the morning and 1 tablet in the evening. Take with meals. [facility] ondansetron 4 mg disintegrat ing tablet 2021-05 00:00: 00 Yes [id number] 4mg Take 1 tablet by mouth every 8 (eight) hours as needed for Nausea and Vomiting (N/V). [facility] ketorolac 10 mg tablet 2021-05 00:00: 00 Yes [id number] 10mg Take 1 tablet by mouth every 6 (six) hours as needed for Pain (scale 7-10). [facility] proMETHazin e 25 mg tablet 2021-05 00:00: 00 Yes [id number] 25mg Take 1 tablet by mouth every 6 (six) hours as needed for N/V unresponsi ve to Ondansetro n. [facility] carvediloL 25 mg tablet 2021-05 00:00: 00 Yes [id number] 25mg Take 1 tablet by mouth in the morning and 1 tablet in the evening. Take with meals. [facility] ondansetron 4 mg disintegrat ing tablet 2021-05 00:00: 00 Yes [id number] 4mg Take 1 tablet by mouth every 8 (eight) hours as needed for Nausea and Vomiting (N/V). [facility] ketorolac 10 mg tablet 2021-05 00:00: 00 Yes [id number] 10mg Take 1 tablet by mouth every 6 (six) hours as needed for Pain (scale 7-10). [facility] proMETHazin e 25 mg tablet 2021-05 00:00: 00 Yes [id number] 25mg Take 1 tablet by mouth every 6 (six) hours as needed for N/V unresponsi ve to Ondansetro n. [facility] carvediloL 25 mg tablet 2021-05 00:00: 00 Yes [id number] 25mg Take 1 tablet by mouth in the morning and 1 tablet in the evening. Take with meals. [facility] ondansetron 4 mg disintegrat ing tablet 2021-05 00:00: 00 Yes [id number] 4mg Take 1 tablet by mouth every 8 (eight) hours as needed for Nausea and Vomiting (N/V). [facility] ketorolac 10 mg tablet 2021-05 00:00: 00 Yes [id number] 10mg Take 1 tablet by mouth every 6 (six) hours as needed for Pain (scale 7-10). [facility] proMETHazin e 25 mg tablet 2021-05 00:00: 00 Yes [id number] 25mg Take 1 tablet by mouth every 6 (six) hours as needed for N/V unresponsi ve to Ondansetro n. [facility] carvediloL 25 mg tablet 2021-05 00:00: 00 Yes [id number] 25mg Take 1 tablet by mouth in the morning and 1 tablet in the evening. Take with meals. [facility] ondansetron 4 mg disintegrat ing tablet 2021-05 00:00: 00 Yes [id number] 4mg Take 1 tablet by mouth every 8 (eight) hours as needed for Nausea and Vomiting (N/V). [facility] ketorolac 10 mg tablet 2021-05 00:00: 00 Yes [id number] 10mg Take 1 tablet by mouth every 6 (six) hours as needed for Pain (scale 7-10). [facility] proMETHazin e 25 mg tablet 2021-05 00:00: 00 Yes [id number] 25mg Take 1 tablet by mouth every 6 (six) hours as needed for N/V unresponsi ve to Ondansetro n. [facility] carvediloL 25 mg tablet 2021-05 00:00: 00 Yes [id number] 25mg Take 1 tablet by mouth in the morning and 1 tablet in the evening. Take with meals. [facility] ondansetron 4 mg disintegrat ing tablet 2021-05 00:00: 00 Yes [id number] 4mg Take 1 tablet by mouth every 8 (eight) hours as needed for Nausea and Vomiting (N/V). [facility] ketorolac 10 mg tablet 2021-05 00:00: 00 Yes [id number] 10mg Take 1 tablet by mouth every 6 (six) hours as needed for Pain (scale 7-10). [facility] proMETHazin e 25 mg tablet 2021-05 00:00: 00 Yes [id number] 25mg Take 1 tablet by mouth every 6 (six) hours as needed for N/V unresponsi ve to Ondansetro n. [facility] carvediloL 25 mg tablet 2021-05 00:00: 00 Yes [id number] 25mg Take 1 tablet by mouth in the morning and 1 tablet in the evening. Take with meals. [facility] ondansetron 4 mg disintegrat ing tablet 2021-05 00:00: 00 Yes [id number] 4mg Take 1 tablet by mouth every 8 (eight) hours as needed for Nausea and Vomiting (N/V). [facility] ketorolac 10 mg tablet 2021-05 00:00: 00 Yes [id number] 10mg Take 1 tablet by mouth every 6 (six) hours as needed for Pain (scale 7-10). [facility] proMETHazin e 25 mg tablet 2021-05 00:00: 00 Yes [id number] 25mg Take 1 tablet by mouth every 6 (six) hours as needed for N/V unresponsi ve to Ondansetro n. [facility] carvediloL 25 mg tablet 2021-05 00:00: 00 Yes [id number] 25mg Take 1 tablet by mouth in the morning and 1 tablet in the evening. Take with meals. [facility] ondansetron 4 mg disintegrat ing tablet 2021-05 00:00: 00 Yes [id number] 4mg Take 1 tablet by mouth every 8 (eight) hours as needed for Nausea and Vomiting (N/V). [facility] ketorolac 10 mg tablet 2021-05 00:00: 00 Yes [id number] 10mg Take 1 tablet by mouth every 6 (six) hours as needed for Pain (scale 7-10). [facility] proMETHazin e 25 mg tablet 2021-05 00:00: 00 Yes [id number] 25mg Take 1 tablet by mouth every 6 (six) hours as needed for N/V unresponsi ve to Ondansetro n. [facility] carvediloL 25 mg tablet 2021-05 00:00: 00 Yes [id number] 25mg Take 1 tablet by mouth in the morning and 1 tablet in the evening. Take with meals. [facility] ondansetron 4 mg disintegrat ing tablet 2021-05 00:00: 00 Yes [id number] 4mg Take 1 tablet by mouth every 8 (eight) hours as needed for Nausea and Vomiting (N/V). [facility] ketorolac 10 mg tablet 2021-05 00:00: 00 Yes [id number] 10mg Take 1 tablet by mouth every 6 (six) hours as needed for Pain (scale 7-10). [facility] proMETHazin e 25 mg tablet 2021-05 00:00: 00 Yes [id number] 25mg Take 1 tablet by mouth every 6 (six) hours as needed for N/V unresponsi ve to Ondansetro n. [facility] carvediloL 25 mg tablet 2021-05 00:00: 00 Yes [id number] 25mg Take 1 tablet by mouth in the morning and 1 tablet in the evening. Take with meals. [facility] carvediloL 25 mg tablet 2021-05 00:00: 00 Yes [id number] 25mg Take 1 tablet by mouth in the morning and 1 tablet in the evening. Take with meals. [facility] carvediloL 25 mg tablet 2021-05 00:00: 00 Yes [id number] 25mg Take 1 tablet by mouth in the morning and 1 tablet in the evening. Take with meals. [facility] carvediloL 25 mg tablet 2021-05 00:00: 00 Yes [id number] 25mg Take 1 tablet by mouth in the morning and 1 tablet in the evening. Take with meals. [facility] carvediloL 25 mg tablet 2021-05 00:00: 00 Yes [id number] 25mg Take 1 tablet by mouth in the morning and 1 tablet in the evening. Take with meals. [facility] carvediloL 25 mg tablet 2021-05 00:00: 00 Yes [id number] 25mg Take 1 tablet by mouth in the morning and 1 tablet in the evening. Take with meals. [facility] carvediloL 25 mg tablet 2021-05 00:00: 00 Yes [id number] 25mg Take 1 tablet by mouth in the morning and 1 tablet in the evening. Take with meals. [facility] carvediloL 25 mg tablet 2021-05 00:00: 00 Yes [id number] 25mg Take 1 tablet by mouth in the morning and 1 tablet in the evening. Take with meals. [facility] carvediloL 25 mg tablet 2021-05 00:00: 00 Yes [id number] 25mg Take 1 tablet by mouth in the morning and 1 tablet in the evening. Take with meals. [facility] carvediloL 25 mg tablet 2021-05 00:00: 00 Yes [id number] 25mg Take 1 tablet by mouth in the morning and 1 tablet in the evening. Take with meals. [facility] carvediloL 25 mg tablet 2021-05 00:00: 00 Yes [id number] 25mg Take 1 tablet by mouth in the morning and 1 tablet in the evening. Take with meals. [facility] carvediloL 25 mg tablet 2021-05 00:00: 00 Yes [id number] 25mg Take 1 tablet by mouth in the morning and 1 tablet in the evening. Take with meals. [facility] carvediloL 25 mg tablet 2021-05 00:00: 00 Yes [id number] 25mg Take 1 tablet by mouth in the morning and 1 tablet in the evening. Take with meals. [facility] carvediloL 25 mg tablet 2021-05 00:00: 00 Yes [id number] 25mg Take 1 tablet by mouth in the morning and 1 tablet in the evening. Take with meals. [facility] carvediloL 25 mg tablet 2021-05 00:00: 00 Yes [id number] 25mg Take 1 tablet by mouth in the morning and 1 tablet in the evening. Take with meals. [facility] carvediloL 25 mg tablet 2021-05 00:00: 00 Yes [id number] 25mg Take 1 tablet by mouth in the morning and 1 tablet in the evening. Take with meals. [facility] carvediloL 25 mg tablet 2021-05 00:00: 00 Yes [id number] 25mg Take 1 tablet by mouth in the morning and 1 tablet in the evening. Take with meals. [facility] carvediloL 25 mg tablet 2021-05 00:00: 00 Yes [id number] 25mg Take 1 tablet by mouth in the morning and 1 tablet in the evening. Take with meals. [facility] carvediloL 25 mg tablet 2021-05 00:00: 00 Yes [id number] 25mg Take 1 tablet by mouth in the morning and 1 tablet in the evening. Take with meals. [facility] carvediloL 25 mg tablet 2021-05 00:00: 00 Yes [id number] 25mg Take 1 tablet by mouth in the morning and 1 tablet in the evening. Take with meals. [facility] carvediloL 25 mg tablet 2021-05 00:00: 00 Yes [id number] 25mg Take 1 tablet by mouth in the morning and 1 tablet in the evening. Take with meals. [facility] carvediloL 25 mg tablet 2021-05 00:00: 00 Yes [id number] 25mg Take 1 tablet by mouth in the morning and 1 tablet in the evening. Take with meals. [facility] carvediloL 25 mg tablet 2021-05 00:00: 00 09-05 00:00 :00 No [id number] 25mg Take 1 tablet by mouth in the morning and 1 tablet in the evening. Take with meals. [facility] carvediloL 25 mg tablet 2021-05 00:00: 00 09-05 00:00 :00 No [id number] 25mg Take 1 tablet by mouth in the morning and 1 tablet in the evening. Take with meals. [facility] ondansetron 4 mg disintegrat ing tablet 2021-05 00:00: 00 04-07 00:00 :00 No [id number] 4mg Take 1 tablet by mouth every 8 (eight) hours as needed for Nausea and Vomiting (N/V). [facility] ketorolac 10 mg tablet 2021-05 00:00: 00 04-07 00:00 :00 No [id number] 10mg Take 1 tablet by mouth every 6 (six) hours as needed for Pain (scale 7-10). [facility] proMETHazin e 25 mg tablet 2021-05 00:00: 00 04-07 00:00 :00 No [id number] 25mg Take 1 tablet by mouth every 6 (six) hours as needed for N/V unresponsi ve to Ondansetro n. [facility] cephALEXin 500 mg capsule 2021-05 00:00: 00 03-19 05:59 :00 No [id number] 500mg Take 1 capsule by mouth 4 (four) times daily for 3 days. [facility] cephALEXin 500 mg capsule 2021-05 00:00: 00 03-19 05:59 :00 No [id number] 500mg Take 1 capsule by mouth 4 (four) times daily for 3 days. [facility] cephALEXin 500 mg capsule 2021-05 00:00: 00 03-19 05:59 :00 No [id number] 500mg Take 1 capsule by mouth 4 (four) times daily for 3 days. [facility] predniSONE 20 mg tablet 2021-05 00:00: 00 03-15 04:59 :00 No [id number] 20mg Take 1 tablet by mouth in the morning for 2 days. [facility] methocarbam oL (ROBAXIN) tablet 500 mg 2021-05 16:45: 00 03-11 17:08 :00 No 500mg 500 mg, Oral, ONCE, 1 dose, On 03/11/22 at 1200, [place] [facility] dexamethaso ne sod phos PF injection 10 mg 2021-05 16:00: 00 03-11 16:00 :00 No 10mg 10 mg, Slow IV Push, ONCE, 1 dose, On 03/11/22 at 1100, 1 mL [facility] diphenhydrA MINE (BENADRYL) injection 25 mg 2021-05 15:46: 00 03-11 16:00 :00 No 25mg 25 mg, Slow IV Push, ONCE, 1 dose, On 03/11/22 at 1100, STAT [facility] NaCl 0.9% (NS) IV infusion 1,000 mL 2021-05 15:45: 00 03-11 16:04 :00 No 1000mL at 999 mL/hr, Intravenou s, ONCE, 1 dose, On 03/11/22 at 1045, Routine [facility] butalbital- acetaminoph en-caff (ESGIC) 50-325-40 mg tablet 1 tablet 2021-05 15:00: 00 03-11 15:05 :00 No 1{tbl} 1 tablet, Oral, ONCE, 1 dose, [facility] mg 2021-05 14:45: 00 03-11 15:05 :00 No 15mg 15 mg, Slow IV Push, ONCE, 1 dose, On 03/11/22 at 0945, [facility] proMETHazin e (PHENERGAN) 12.5 mg in NaCl 0.9% (NS) 50 mL IV piggyback 2021-05 14:45: 00 03-11 15:04 :00 No 12.5mg 12.5 mg, IV Piggyback, ONCE, 1 dose, On 03/11/22 at 0945, [facility] proMETHazin e 25 mg tablet 2021-05 00:00: 00 Yes [id number] 25mg Take 1 tablet by mouth every 6 (six) hours as needed for Nausea and Vomiting (N/V). [facility] methocarbam oL 500 mg tablet 2021-05 00:00: 00 Yes [id number] 500mg Take 1 tablet by mouth 3 (three) times daily as needed for Pain (scale 7-10). [facility] proMETHazin e 25 mg tablet 2021-05 00:00: 00 Yes [id number] 25mg Take 1 tablet by mouth every 6 (six) hours as needed for Nausea and Vomiting (N/V). [facility] methocarbam oL 500 mg tablet 2021-05 00:00: 00 Yes [id number] 500mg Take 1 tablet by mouth 3 (three) times daily as needed for Pain (scale 7-10). [facility] proMETHazin e 25 mg tablet 2021-05 030 00:00: 00 Yes [id number] 25mg Take 1 tablet by mouth every 6 (six) hours as needed for Nausea and Vomiting (N/V). [facility] methocarbam oL 500 mg tablet 2021-05 030 00:00: 00 Yes [id number] 500mg Take 1 tablet by mouth 3 (three) times daily as needed for Pain (scale 7-10). [facility] proMETHazin e 25 mg tablet 2021-05 030 00:00: 00 Yes [id number] 25mg Take 1 tablet by mouth every 6 (six) hours as needed for Nausea and Vomiting (N/V). [facility] methocarbam oL 500 mg tablet 2021-05 0 00:00: 00 Yes [id number] 500mg Take 1 tablet by mouth 3 (three) times daily as needed for Pain (scale 7-10). [facility] proMETHazin e 25 mg tablet 2021-05 0 00:00: 00 Yes [id number] 25mg Take 1 tablet by mouth every 6 (six) hours as needed for Nausea and Vomiting (N/V). [facility] methocarbam oL 500 mg tablet 2021-05 0 00:00: 00 Yes [id number] 500mg Take 1 tablet by mouth 3 (three) times daily as needed for Pain (scale 7-10). [facility] proMETHazin e 25 mg tablet 2021-05 030 00:00: 00 Yes [id number] 25mg Take 1 tablet by mouth every 6 (six) hours as needed for Nausea and Vomiting (N/V). [facility] methocarbam oL 500 mg tablet 2021-05 030 00:00: 00 Yes [id number] 500mg Take 1 tablet by mouth 3 (three) times daily as needed for Pain (scale 7-10). [facility] proMETHazin e 25 mg tablet 2021-05 030 00:00: 00 Yes [id number] 25mg Take 1 tablet by mouth every 6 (six) hours as needed for Nausea and Vomiting (N/V). [facility] methocarbam oL 500 mg tablet 2021-05 030 00:00: 00 Yes [id number] 500mg Take 1 tablet by mouth 3 (three) times daily as needed for Pain (scale 7-10). [facility] proMETHazin e 25 mg tablet 2021-05 030 00:00: 00 Yes [id number] 25mg Take 1 tablet by mouth every 6 (six) hours as needed for Nausea and Vomiting (N/V). [facility] methocarbam oL 500 mg tablet 2021-05 0 00:00: 00 Yes [id number] 500mg Take 1 tablet by mouth 3 (three) times daily as needed for Pain (scale 7-10). [facility] proMETHazin e 25 mg tablet 2021-05 0 00:00: 00 Yes [id number] 25mg Take 1 tablet by mouth every 6 (six) hours as needed for Nausea and Vomiting (N/V). [facility] methocarbam oL 500 mg tablet 2021-05 0 00:00: 00 Yes [id number] 500mg Take 1 tablet by mouth 3 (three) times daily as needed for Pain (scale 7-10). [facility] proMETHazin e 25 mg tablet 2021-05 0 00:00: 00 Yes [id number] 25mg Take 1 tablet by mouth every 6 (six) hours as needed for Nausea and Vomiting (N/V). [facility] methocarbam oL 500 mg tablet 2021-05 0 00:00: 00 Yes [id number] 500mg Take 1 tablet by mouth 3 (three) times daily as needed for Pain (scale 7-10). [facility] proMETHazin e 25 mg tablet 2021-05 030 00:00: 00 Yes [id number] 25mg Take 1 tablet by mouth every 6 (six) hours as needed for Nausea and Vomiting (N/V). [facility] methocarbam oL 500 mg tablet 2021-05 030 00:00: 00 Yes [id number] 500mg Take 1 tablet by mouth 3 (three) times daily as needed for Pain (scale 7-10). [facility] proMETHazin e 25 mg tablet 2021-05 030 00:00: 00 Yes [id number] 25mg Take 1 tablet by mouth every 6 (six) hours as needed for Nausea and Vomiting (N/V). [facility] proMETHazin e 25 mg tablet 2021-05 0 00:00: 00 Yes [id number] 25mg Take 1 tablet by mouth every 6 (six) hours as needed for Nausea and Vomiting (N/V). [facility] proMETHazin e 25 mg tablet 2021-05 0 00:00: 00 Yes [id number] 25mg Take 1 tablet by mouth every 6 (six) hours as needed for Nausea and Vomiting (N/V). [facility] proMETHazin e 25 mg tablet 2021-05 0 00:00: 00 Yes [id number] 25mg Take 1 tablet by mouth every 6 (six) hours as needed for Nausea and Vomiting (N/V). [facility] proMETHazin e 25 mg tablet 2021-05 0 00:00: 00 Yes [id number] 25mg Take 1 tablet by mouth every 6 (six) hours as needed for Nausea and Vomiting (N/V). [facility] proMETHazin e 25 mg tablet 2021-05 0 00:00: 00 Yes [id number] 25mg Take 1 tablet by mouth every 6 (six) hours as needed for Nausea and Vomiting (N/V). [facility] proMETHazin e 25 mg tablet 2021-05 0 00:00: 00 Yes [id number] 25mg Take 1 tablet by mouth every 6 (six) hours as needed for Nausea and Vomiting (N/V). [facility] proMETHazin e 25 mg tablet 2021-05 030 00:00: 00 Yes [id number] 25mg Take 1 tablet by mouth every 6 (six) hours as needed for Nausea and Vomiting (N/V). [facility] proMETHazin e 25 mg tablet 2021-05 030 00:00: 00 Yes [id number] 25mg Take 1 tablet by mouth every 6 (six) hours as needed for Nausea and Vomiting (N/V). [facility] proMETHazin e 25 mg tablet 2021-05 030 00:00: 00 Yes [id number] 25mg Take 1 tablet by mouth every 6 (six) hours as needed for Nausea and Vomiting (N/V). [facility] proMETHazin e 25 mg tablet 2021-05 030 00:00: 00 Yes [id number] 25mg Take 1 tablet by mouth every 6 (six) hours as needed for Nausea and Vomiting (N/V). [facility] proMETHazin e 25 mg tablet 2021-05 030 00:00: 00 Yes [id number] 25mg Take 1 tablet by mouth every 6 (six) hours as needed for Nausea and Vomiting (N/V). [facility] proMETHazin e 25 mg tablet 2021-05 0 00:00: 00 Yes [id number] 25mg Take 1 tablet by mouth every 6 (six) hours as needed for Nausea and Vomiting (N/V). [facility] proMETHazin e 25 mg tablet 2021-05 0 00:00: 00 Yes [id number] 25mg Take 1 tablet by mouth every 6 (six) hours as needed for Nausea and Vomiting (N/V). [facility] proMETHazin e 25 mg tablet 2021-05 030 00:00: 00 Yes [id number] 25mg Take 1 tablet by mouth every 6 (six) hours as needed for Nausea and Vomiting (N/V). [facility] proMETHazin e 25 mg tablet 2021-05 030 00:00: 00 Yes [id number] 25mg Take 1 tablet by mouth every 6 (six) hours as needed for Nausea and Vomiting (N/V). [facility] proMETHazin e 25 mg tablet 2021-05 030 00:00: 00 Yes [id number] 25mg Take 1 tablet by mouth every 6 (six) hours as needed for Nausea and Vomiting (N/V). [facility] proMETHazin e 25 mg tablet 2021-05 030 00:00: 00 07-31 00:00 :00 No [id number] 25mg Take 1 tablet by mouth every 6 (six) hours as needed for Nausea and Vomiting (N/V). [facility] methocarbam oL 500 mg tablet 2021-05 0-30 00:00: 00 04-07 00:00 :00 No [id number] 500mg Take 1 tablet by mouth 3 (three) times daily as needed for Pain (scale 7-10). [facility] topiramate 25 mg tablet 2021-05 0- 00:00: 00 Yes [id number] 100mg Take 4 tablets by mouth in the morning. [facility] topiramate 25 mg tablet 2021- 0 00:00: 00 Yes [id number] 100mg Take 4 tablets by mouth in the morning. [facility] topiramate 25 mg tablet 2021- 0 00:00: 00 Yes [id number] 100mg Take 4 tablets by mouth in the morning. [facility] topiramate 25 mg tablet 2021- 0 00:00: 00 Yes [id number] 100mg Take 4 tablets by mouth in the morning. [facility] topiramate 25 mg tablet 2021- 0 00:00: 00 Yes [id number] 100mg Take 4 tablets by mouth in the morning. [facility] topiramate 25 mg tablet 2021- 0 00:00: 00 Yes [id number] 100mg Take 4 tablets by mouth in the morning. [facility] topiramate 25 mg tablet 2021- 0 00:00: 00 Yes [id number] 100mg Take 4 tablets by mouth in the morning. [facility] topiramate 25 mg tablet 2021- 0 00:00: 00 Yes [id number] 100mg Take 4 tablets by mouth in the morning. [facility] topiramate 25 mg tablet 2021- 0- 00:00: 00 Yes [id number] 100mg Take 4 tablets by mouth in the morning. [facility] topiramate 25 mg tablet 2021- 0- 00:00: 00 Yes [id number] 100mg Take 4 tablets by mouth in the morning. [facility] topiramate 25 mg tablet 2021-1 0-21 00:00: 00 Yes [id number] 100mg Take 4 tablets by mouth in the morning. [facility] topiramate 25 mg tablet 2021-1 0- 00:00: 00 Yes [id number] 100mg Take 4 tablets by mouth in the morning. [facility] topiramate 25 mg tablet 2021-1 0- 00:00: 00 Yes [id number] 100mg Take 4 tablets by mouth in the morning. [facility] topiramate 25 mg tablet 2021-1 0 00:00: 00 Yes [id number] 100mg Take 4 tablets by mouth in the morning. [facility] topiramate 25 mg tablet 2021-1 0 00:00: 00 Yes [id number] 100mg Take 4 tablets by mouth in the morning. [facility] topiramate 25 mg tablet 2021-1 0 00:00: 00 Yes [id number] 100mg Take 4 tablets by mouth in the morning. [facility] topiramate 25 mg tablet 2021-1 0 00:00: 00 Yes [id number] 100mg Take 4 tablets by mouth in the morning. [facility] topiramate 25 mg tablet 2021-1 0 00:00: 00 Yes [id number] 100mg Take 4 tablets by mouth in the morning. [facility] topiramate 25 mg tablet 2021-1 0 00:00: 00 Yes [id number] 100mg Take 4 tablets by mouth in the morning. [facility] topiramate 25 mg tablet 2021-1 0 00:00: 00 Yes [id number] 100mg Take 4 tablets by mouth in the morning. [facility] topiramate 25 mg tablet 2-1 0 00:00: 00 Yes [id number] 100mg Take 4 tablets by mouth in the morning. [facility] topiramate 25 mg tablet 2021-1 0- 00:00: 00 Yes [id number] 100mg Take 4 tablets by mouth in the morning. [facility] topiramate 25 mg tablet 2-1 0- 00:00: 00 Yes [id number] 100mg Take 4 tablets by mouth in the morning. [facility] topiramate 25 mg tablet 2021-1 021 00:00: 00 Yes [id number] 100mg Take 4 tablets by mouth in the morning. [facility] topiramate 25 mg tablet 2021-1 0 00:00: 00 Yes [id number] 100mg Take 4 tablets by mouth in the morning. [facility] topiramate 25 mg tablet 2-1 0- 00:00: 00 Yes [id number] 100mg Take 4 tablets by mouth in the morning. [facility] topiramate 25 mg tablet 2021-1 0 00:00: 00 Yes [id number] 100mg Take 4 tablets by mouth in the morning. [facility] topiramate 25 mg tablet 2021-1 0 00:00: 00 Yes [id number] 100mg Take 4 tablets by mouth in the morning. [facility] topiramate 25 mg tablet 2-1 0 00:00: 00 Yes [id number] 100mg Take 4 tablets by mouth in the morning. [facility] topiramate 25 mg tablet 2021-1 0 00:00: 00 Yes [id number] 100mg Take 4 tablets by mouth in the morning. [facility] topiramate 25 mg tablet 2021-1 0 00:00: 00 Yes [id number] 100mg Take 4 tablets by mouth in the morning. [facility] topiramate 25 mg tablet 2-1 0 00:00: 00 Yes [id number] 100mg Take 4 tablets by mouth in the morning. [facility] topiramate 25 mg tablet 2021-1 0 00:00: 00 Yes [id number] 100mg Take 4 tablets by mouth in the morning. [facility] topiramate 25 mg tablet 2-1 0- 00:00: 00 Yes [id number] 100mg Take 4 tablets by mouth in the morning. [facility] topiramate 25 mg tablet 2-1 0-21 00:00: 00 Yes [id number] 100mg Take 4 tablets by mouth in the morning. [facility] topiramate 25 mg tablet 2-1 0-21 00:00: 00 Yes [id number] 100mg Take 4 tablets by mouth in the morning. [facility] topiramate 25 mg tablet 2021-1 0- 00:00: 00 Yes [id number] 100mg Take 4 tablets by mouth in the morning. [facility] topiramate 25 mg tablet 2021-1 0- 00:00: 00 Yes [id number] 100mg Take 4 tablets by mouth in the morning. [facility] topiramate 25 mg tablet 2021-1 0 00:00: 00 Yes [id number] 100mg Take 4 tablets by mouth in the morning. [facility] topiramate 25 mg tablet 2021-1 0 00:00: 00 Yes [id number] 100mg Take 4 tablets by mouth in the morning. [facility] topiramate 25 mg tablet 2021-1 0 00:00: 00 Yes [id number] 100mg Take 4 tablets by mouth in the morning. [facility] topiramate 25 mg tablet 2021-1 0 00:00: 00 Yes [id number] 100mg Take 4 tablets by mouth in the morning. [facility] topiramate 25 mg tablet 2021-1 0 00:00: 00 Yes [id number] 100mg Take 4 tablets by mouth in the morning. [facility] topiramate 25 mg tablet 2021-1 0 00:00: 00 Yes [id number] 100mg Take 4 tablets by mouth in the morning. [facility] topiramate 25 mg tablet 2021-1 0 00:00: 00 Yes [id number] 100mg Take 4 tablets by mouth in the morning. [facility] topiramate 25 mg tablet 2-1 0 00:00: 00 Yes [id number] 100mg Take 4 tablets by mouth in the morning. [facility] topiramate 25 mg tablet 2021-1 0- 00:00: 00 Yes [id number] 100mg Take 4 tablets by mouth in the morning. [facility] topiramate 25 mg tablet 2-1 0- 00:00: 00 Yes [id number] 100mg Take 4 tablets by mouth in the morning. [facility] topiramate 25 mg tablet 2021-05 0 00:00: 00 Yes [id number] 100mg Take 4 tablets by mouth in the morning. [facility] topiramate 25 mg tablet 2021-05 0 00:00: 00 Yes [id number] 100mg Take 4 tablets by mouth in the morning. [facility] diphenhydrA MINE 25 mg capsule 2021-05 018 09:39: 59 02-27 00:00 :00 No 25mg Take 25 mg by mouth every 6 (six) hours as needed for Allergies. [facility] diphenhydrA MINE 25 mg capsule 2021-0518 09:39: 59 02-27 00:00 :00 No 25mg Take 25 mg by mouth every 6 (six) hours as needed for Allergies. [facility] diphenhydrA MINE 25 mg capsule 2021-05 09:39: 59 02-27 00:00 :00 No 25mg Take 25 mg by mouth every 6 (six) hours as needed for Allergies. [facility] diphenhydrA MINE 25 mg capsule 2021-05 09:39: 59 02-27 00:00 :00 No 25mg Take 25 mg by mouth every 6 (six) hours as needed for Allergies. [facility] diphenhydrA MINE 25 mg capsule 2021-05 09:39: 59 02-27 00:00 :00 No 25mg Take 25 mg by mouth every 6 (six) hours as needed for Allergies. [facility] citalopram hydrobromid e (CITALOPRAM ORAL) 2021-05 09:39: 49 02-27 00:00 :00 No Take by mouth. [facility] citalopram hydrobromid e (CITALOPRAM ORAL) 2021-0518 09:39: 49 02-27 00:00 :00 No Take by mouth. [facility] citalopram hydrobromid e (CITALOPRAM ORAL) 2021-0518 09:39: 49 02-27 00:00 :00 No Take by mouth. [facility] citalopram hydrobromid e (CITALOPRAM ORAL) 2021-05 018 09:39: 49 02-27 00:00 :00 No Take by mouth. [facility] carbamazepi ne (TEGRETOL ORAL) 2021-05 018 09:39: 28 02-27 00:00 :00 No Take by mouth. [facility] carbamazepi ne (TEGRETOL ORAL) 2021-05 018 09:39: 28 02-27 00:00 :00 No Take by mouth. [facility] carbamazepi ne (TEGRETOL ORAL) 2021-05 018 09:39: 28 02-27 00:00 :00 No Take by mouth. [facility] carbamazepi ne (TEGRETOL ORAL) 2021-05 0 09:39: 28 02-27 00:00 :00 No Take by mouth. [facility] albuterol 90 mcg/actuati on inhaler 2021-05 0 00:00: 00 Yes [id number] 2{puff} Inhale 2 Puffs every 6 (six) hours as needed for Wheezing or Shortness of Breath. [facility] albuterol 90 mcg/actuati on inhaler 2021-05 0 00:00: 00 Yes [id number] 2{puff} Inhale 2 Puffs every 6 (six) hours as needed for Wheezing or Shortness of Breath. [facility] albuterol 90 mcg/actuati on inhaler 2021-05 018 00:00: 00 Yes [id number] 2{puff} Inhale 2 Puffs every 6 (six) hours as needed for Wheezing or Shortness of Breath. [facility] albuterol 90 mcg/actuati on inhaler 2021-05 018 00:00: 00 Yes [id number] 2{puff} Inhale 2 Puffs every 6 (six) hours as needed for Wheezing or Shortness of Breath. [facility] albuterol 90 mcg/actuati on inhaler 2021-05 0-18 00:00: 00 Yes [id number] 2{puff} Inhale 2 Puffs every 6 (six) hours as needed for Wheezing or Shortness of Breath. [facility] albuterol 90 mcg/actuati on inhaler 2021-05 018 00:00: 00 Yes [id number] 2{puff} Inhale 2 Puffs every 6 (six) hours as needed for Wheezing or Shortness of Breath. [facility] albuterol 90 mcg/actuati on inhaler 2021-05 018 00:00: 00 Yes [id number] 2{puff} Inhale 2 Puffs every 6 (six) hours as needed for Wheezing or Shortness of Breath. [facility] albuterol 90 mcg/actuati on inhaler 2021-05 018 00:00: 00 Yes [id number] 2{puff} Inhale 2 Puffs every 6 (six) hours as needed for Wheezing or Shortness of Breath. [facility] albuterol 90 mcg/actuati on inhaler 2021-05 018 00:00: 00 Yes [id number] 2{puff} Inhale 2 Puffs every 6 (six) hours as needed for Wheezing or Shortness of Breath. [facility] albuterol 90 mcg/actuati on inhaler 2021-05 018 00:00: 00 Yes [id number] 2{puff} Inhale 2 Puffs every 6 (six) hours as needed for Wheezing or Shortness of Breath. [facility] albuterol 90 mcg/actuati on inhaler 2021-05 018 00:00: 00 Yes [id number] 2{puff} Inhale 2 Puffs every 6 (six) hours as needed for Wheezing or Shortness of Breath. [facility] albuterol 90 mcg/actuati on inhaler 2021-05 0-18 00:00: 00 Yes [id number] 2{puff} Inhale 2 Puffs every 6 (six) hours as needed for Wheezing or Shortness of Breath. [facility] albuterol 90 mcg/actuati on inhaler 2021-05 0-18 00:00: 00 Yes [id number] 2{puff} Inhale 2 Puffs every 6 (six) hours as needed for Wheezing or Shortness of Breath. [facility] albuterol 90 mcg/actuati on inhaler 2021-05 0-18 00:00: 00 Yes [id number] 2{puff} Inhale 2 Puffs every 6 (six) hours as needed for Wheezing or Shortness of Breath. [facility] albuterol 90 mcg/actuati on inhaler 2021-05 018 00:00: 00 Yes [id number] 2{puff} Inhale 2 Puffs every 6 (six) hours as needed for Wheezing or Shortness of Breath. [facility] albuterol 90 mcg/actuati on inhaler 2021-05 018 00:00: 00 Yes [id number] 2{puff} Inhale 2 Puffs every 6 (six) hours as needed for Wheezing or Shortness of Breath. [facility] albuterol 90 mcg/actuati on inhaler 2021-05 0 00:00: 00 Yes [id number] 2{puff} Inhale 2 Puffs every 6 (six) hours as needed for Wheezing or Shortness of Breath. [facility] albuterol 90 mcg/actuati on inhaler 2021-05 018 00:00: 00 Yes [id number] 2{puff} Inhale 2 Puffs every 6 (six) hours as needed for Wheezing or Shortness of Breath. [facility] albuterol 90 mcg/actuati on inhaler 2021-05 018 00:00: 00 Yes [id number] 2{puff} Inhale 2 Puffs every 6 (six) hours as needed for Wheezing or Shortness of Breath. [facility] albuterol 90 mcg/actuati on inhaler 2021-05 0-18 00:00: 00 Yes [id number] 2{puff} Inhale 2 Puffs every 6 (six) hours as needed for Wheezing or Shortness of Breath. [facility] albuterol 90 mcg/actuati on inhaler 2021-05 018 00:00: 00 Yes [id number] 2{puff} Inhale 2 Puffs every 6 (six) hours as needed for Wheezing or Shortness of Breath. [facility] albuterol 90 mcg/actuati on inhaler 2021-05 018 00:00: 00 Yes [id number] 2{puff} Inhale 2 Puffs every 6 (six) hours as needed for Wheezing or Shortness of Breath. [facility] albuterol 90 mcg/actuati on inhaler 2021-05 018 00:00: 00 Yes [id number] 2{puff} Inhale 2 Puffs every 6 (six) hours as needed for Wheezing or Shortness of Breath. [facility] albuterol 90 mcg/actuati on inhaler 2021-05 018 00:00: 00 Yes [id number] 2{puff} Inhale 2 Puffs every 6 (six) hours as needed for Wheezing or Shortness of Breath. [facility] albuterol 90 mcg/actuati on inhaler 2021-05 018 00:00: 00 Yes [id number] 2{puff} Inhale 2 Puffs every 6 (six) hours as needed for Wheezing or Shortness of Breath. [facility] albuterol 90 mcg/actuati on inhaler 2021-05 018 00:00: 00 Yes [id number] 2{puff} Inhale 2 Puffs every 6 (six) hours as needed for Wheezing or Shortness of Breath. [facility] albuterol 90 mcg/actuati on inhaler 2021-05 018 00:00: 00 Yes [id number] 2{puff} Inhale 2 Puffs every 6 (six) hours as needed for Wheezing or Shortness of Breath. [facility] albuterol 90 mcg/actuati on inhaler 2021-05 018 00:00: 00 Yes [id number] 2{puff} Inhale 2 Puffs every 6 (six) hours as needed for Wheezing or Shortness of Breath. [facility] albuterol 90 mcg/actuati on inhaler 2021-05 018 00:00: 00 Yes [id number] 2{puff} Inhale 2 Puffs every 6 (six) hours as needed for Wheezing or Shortness of Breath. [facility] albuterol 90 mcg/actuati on inhaler 2021-05 018 00:00: 00 Yes [id number] 2{puff} Inhale 2 Puffs every 6 (six) hours as needed for Wheezing or Shortness of Breath. [facility] albuterol 90 mcg/actuati on inhaler 2021-05 018 00:00: 00 Yes [id number] 2{puff} Inhale 2 Puffs every 6 (six) hours as needed for Wheezing or Shortness of Breath. [facility] albuterol 90 mcg/actuati on inhaler 2021-05 018 00:00: 00 Yes [id number] 2{puff} Inhale 2 Puffs every 6 (six) hours as needed for Wheezing or Shortness of Breath. [facility] albuterol 90 mcg/actuati on inhaler 2021-05 018 00:00: 00 Yes [id number] 2{puff} Inhale 2 Puffs every 6 (six) hours as needed for Wheezing or Shortness of Breath. [facility] albuterol 90 mcg/actuati on inhaler 2021-05 018 00:00: 00 Yes [id number] 2{puff} Inhale 2 Puffs every 6 (six) hours as needed for Wheezing or Shortness of Breath. [facility] albuterol 90 mcg/actuati on inhaler 2021-05 018 00:00: 00 Yes [id number] 2{puff} Inhale 2 Puffs every 6 (six) hours as needed for Wheezing or Shortness of Breath. [facility] albuterol 90 mcg/actuati on inhaler 2021-05 018 00:00: 00 Yes [id number] 2{puff} Inhale 2 Puffs every 6 (six) hours as needed for Wheezing or Shortness of Breath. [facility] albuterol 90 mcg/actuati on inhaler 2021-05 018 00:00: 00 Yes [id number] 2{puff} Inhale 2 Puffs every 6 (six) hours as needed for Wheezing or Shortness of Breath. [facility] albuterol 90 mcg/actuati on inhaler 2021-05 0-18 00:00: 00 Yes [id number] 2{puff} Inhale 2 Puffs every 6 (six) hours as needed for Wheezing or Shortness of Breath. [facility] albuterol 90 mcg/actuati on inhaler 2021-05 018 00:00: 00 Yes [id number] 2{puff} Inhale 2 Puffs every 6 (six) hours as needed for Wheezing or Shortness of Breath. [facility] albuterol 90 mcg/actuati on inhaler 2021-05 018 00:00: 00 Yes [id number] 2{puff} Inhale 2 Puffs every 6 (six) hours as needed for Wheezing or Shortness of Breath. [facility] albuterol 90 mcg/actuati on inhaler 2021-05 0 00:00: 00 Yes [id number] 2{puff} Inhale 2 Puffs every 6 (six) hours as needed for Wheezing or Shortness of Breath. [facility] albuterol 90 mcg/actuati on inhaler 2021-05 018 00:00: 00 Yes [id number] 2{puff} Inhale 2 Puffs every 6 (six) hours as needed for Wheezing or Shortness of Breath. [facility] albuterol 90 mcg/actuati on inhaler 2021-05 018 00:00: 00 Yes [id number] 2{puff} Inhale 2 Puffs every 6 (six) hours as needed for Wheezing or Shortness of Breath. [facility] albuterol 90 mcg/actuati on inhaler 2021-05 018 00:00: 00 Yes [id number] 2{puff} Inhale 2 Puffs every 6 (six) hours as needed for Wheezing or Shortness of Breath. [facility] albuterol 90 mcg/actuati on inhaler 2021-05 018 00:00: 00 Yes [id number] 2{puff} Inhale 2 Puffs every 6 (six) hours as needed for Wheezing or Shortness of Breath. [facility] albuterol 90 mcg/actuati on inhaler 2021-05 0-18 00:00: 00 Yes [id number] 2{puff} Inhale 2 Puffs every 6 (six) hours as needed for Wheezing or Shortness of Breath. [facility] albuterol 90 mcg/actuati on inhaler 2021-05 018 00:00: 00 Yes [id number] 2{puff} Inhale 2 Puffs every 6 (six) hours as needed for Wheezing or Shortness of Breath. [facility] albuterol 90 mcg/actuati on inhaler 2021-05 018 00:00: 00 Yes [id number] 2{puff} Inhale 2 Puffs every 6 (six) hours as needed for Wheezing or Shortness of Breath. [facility] albuterol 90 mcg/actuati on inhaler 2021-05 018 00:00: 00 Yes [id number] 2{puff} Inhale 2 Puffs every 6 (six) hours as needed for Wheezing or Shortness of Breath. [facility] albuterol 90 mcg/actuati on inhaler 2021-05 018 00:00: 00 Yes [id number] 2{puff} Inhale 2 Puffs every 6 (six) hours as needed for Wheezing or Shortness of Breath. [facility] albuterol 90 mcg/actuati on inhaler 2021-05 018 00:00: 00 Yes [id number] 2{puff} Inhale 2 Puffs every 6 (six) hours as needed for Wheezing or Shortness of Breath. [facility] albuterol 90 mcg/actuati on inhaler 2021-05 018 00:00: 00 Yes [id number] 2{puff} Inhale 2 Puffs every 6 (six) hours as needed for Wheezing or Shortness of Breath. [facility] albuterol 90 mcg/actuati on inhaler 2021-05 0-18 00:00: 00 Yes [id number] 2{puff} Inhale 2 Puffs every 6 (six) hours as needed for Wheezing or Shortness of Breath. [facility] albuterol 90 mcg/actuati on inhaler 2021-05 0-18 00:00: 00 Yes [id number] 2{puff} Inhale 2 Puffs every 6 (six) hours as needed for Wheezing or Shortness of Breath. [facility] albuterol 90 mcg/actuati on inhaler 2021-05 0-18 00:00: 00 Yes [id number] 2{puff} Inhale 2 Puffs every 6 (six) hours as needed for Wheezing or Shortness of Breath. [facility] albuterol 90 mcg/actuati on inhaler 2021-05 018 00:00: 00 Yes [id number] 2{puff} Inhale 2 Puffs every 6 (six) hours as needed for Wheezing or Shortness of Breath. [facility] SUMAtriptan 50 mg tablet 2021-05 00:00: 00 03-21 00:00 :00 No 50mg Take 50 mg by mouth as needed for Migraine. Take one tablet at onset of migraine, may take another tablet 2 hours after initial dose if no relief with first dose. DO NOT EXCEED 100mg in a 24 hour period. [facility] benzonatate 200 mg capsule 2021-05 018 00:00: 00 03-07 04:59 :00 No [id number] 200mg Take 1 capsule by mouth 3 (three) times daily as needed for Cough for up to 7 days. [facility] benzonatate 200 mg capsule 2021-05 018 00:00: 00 03-07 04:59 :00 No [id number] 200mg Take 1 capsule by mouth 3 (three) times daily as needed for Cough for up to 7 days. [facility] benzonatate 200 mg capsule 2021-05 018 00:00: 00 03-07 04:59 :00 No [id number] 200mg Take 1 capsule by mouth 3 (three) times daily as needed for Cough for up to 7 days. [facility] benzonatate 200 mg capsule 2021-05 0-18 00:00: 00 03-07 04:59 :00 No [id number] 200mg Take 1 capsule by mouth 3 (three) times daily as needed for Cough for up to 7 days. [facility] benzonatate 200 mg capsule 2021-05 0-18 00:00: 00 03-07 04:59 :00 No [id number] 200mg Take 1 capsule by mouth 3 (three) times daily as needed for Cough for up to 7 days. [facility] benzonatate 200 mg capsule 2021-05 0-18 00:00: 00 03-07 04:59 :00 No [id number] 200mg Take 1 capsule by mouth 3 (three) times daily as needed for Cough for up to 7 days. [facility] SUMAtriptan 50 mg tablet 2021-05 018 00:00: 00 02-28 04:59 :00 No [id number] 50mg Take 1 tablet by mouth once now for 1 dose. [facility] SUMAtriptan 50 mg tablet 2021-05 018 00:00: 00 02-28 04:59 :00 No [id number] 50mg Take 1 tablet by mouth once now for 1 dose. [facility] butalbital- acetaminoph en-caff (ESGIC) 50-325-40 mg tablet 1 tablet 2021-05 012 08:15: 00 02-21 08:09 :00 No 1{tbl} 1 tablet, Oral, ONCE, 1 dose, On Sat02/21/22 at 0315, [place] [facility] butorphanol (STADOL) injection 1 mg 2021-05 012 08:15: 00 02-21 07:28 :00 No 1mg 1 mg, IV Push, ONCE, 1 dose, On Sat02/21/22 at 0315, Routine [facility] NaCl 0.9% (NS) bolus infusion 1,000 mL 2021-05 012 07:15: 00 02-21 08:40 :00 No 1000mL at 999 mL/hr, 1,000 mL, IV Infusion, ONCE, 1 dose, On Sat02/21/22 at 0215, [place] [facility] proMETHazin e (PHENERGAN) 12.5 mg in NaCl 0.9% (NS) 50 mL IV piggyback 2021-05 06:30: 00 02-21 06:38 :00 No 12.5mg 12.5 mg, IV Piggyback, ONCE, 1 dose, On Sat02/21/22 at 0130, [place] [facility] dexamethaso ne sod phos PF injection 10 mg 2021-05 06:30: 00 02-21 06:38 :00 No 10mg 10 mg, Slow IV Push, ONCE, 1 dose, On Sat02/21/22 at 0130, 1 mL [facility] ketorolac (TORADOL) injection 15 mg 2021-05 06:30: 00 02-21 06:38 :00 No 15mg 15 mg, Slow IV Push, ONCE, 1 dose, On Sat02/21/22 at 0130, [facility] diphenhydrA MINE (BENADRYL) injection 25 mg 2021-05 06:30: 00 02-21 06:38 :00 No 25mg 25 mg, Slow IV Push, ONCE, 1 dose, On Sat02/21/22 at 0130, STAT [facility] FENTanyl PF (SUBLIMAZE (PF)) injection 50 mcg 2021-05 20:30: 00 02-18 19:44 :00 No 50ug 50 mcg, Slow IV Push, ONCE, 1 dose, On Sat02/18/22 at 1530, Routine [facility] ketorolac (TORADOL) injection 30 mg 2021-05 20:15: 00 02-18 20:09 :00 No 30mg 30 mg, Slow IV Push, ONCE, 1 dose, On Sat02/18/22 at 1515, [facility] iopamidol (ISOVUE 370-500 mL) injection 60 mL 2021-05 19:30: 00 02-18 17:30 :00 No [id number] 60mL 60 mL, Intravenou s, ONCE, 1 dose, On Sat02/18/22 at 1430, Routine [facility] proMETHazin e (PHENERGAN) 12.5 mg in NaCl 0.9% (NS) 50 mL IV piggyback 2021-05 18:15: 00 02-18 18:19 :00 No 12.5mg 12.5 mg, IV Piggyback, ONCE, 1 dose, On [place] 02/18/22 at 1315, [facility] FENTanyl PF (SUBLIMAZE (PF)) injection 50 mcg 2021-05 18:00: 00 02-18 17:26 :00 No 50ug 50 mcg, Slow IV Push, ONCE, 1 dose, On 02/18/22 at 1300, Routine [facility] ondansetron (ZOFRAN (PF)) injection 4 mg 2021-05 17:15: 00 02-18 17:27 :00 No 4mg 4 mg, Slow IV Push, ONCE, 1 dose, On [place] 02/18/22 at 1215, [facility] morpHINE (2 mg/mL) injection 4 mg 01-18 15:15: 00 01-18 14:49 :00 No 4mg 4 mg, Slow IV Push, ONCE, 1 dose, On Kathie 01/18/22 at 1015, STAT [facility] ondansetron (ZOFRAN (PF)) injection 4 mg 01-18 13:30: 00 01-18 13:33 :00 No 4mg 4 mg, Slow IV Push, ONCE, 1 dose, On Kathie 01/18/22 at 0830, [facility] morpHINE (4 mg/mL) injection 4 mg 01-18 13:30: 00 01-18 13:34 :00 No 4mg 4 mg, Slow IV Push, ONCE, 1 dose, On Kathie 01/18/22 at 0830, [facility] morpHINE (4 mg/mL) injection 4 mg 01-18 12:30: 00 01-18 11:39 :00 No 4mg 4 mg, Slow IV Push, ONCE, 1 dose, On Kathie 01/18/22 at 0730, [facility] famotidine (PEPCID (PF)) injection 20 mg 01-18 11:30: 00 01-18 10:52 :00 No 20mg 20 mg, Slow IV Push, ONCE, 1 dose, On Kathie 01/18/22 at 0630, [facility] ondansetron (ZOFRAN (PF)) injection 4 mg 01-18 11:30: 00 01-18 10:52 :00 No 4mg 4 mg, Slow IV Push, ONCE, 1 dose, [facility] [place] [facility] (VISIPAQUE 270-150 mL) injection 80 mL 01-18 11:21: 00 01-18 11:15 :00 No [id number] 80mL 80 mL, Intravenou s, ONCE, 1 dose, On Kathie 01/18/22 at 0630, Routine [facility] NaCl 0.9% (NS) bolus infusion 1,000 mL 01-18 11:15: 00 01-18 12:59 :00 No 1000mL at 999 mL/hr, 1,000 mL, IV Infusion, ONCE, 1 dose, On Kathie 01/18/22 at 0615, [facility] morpHINE (4 mg/mL) injection 4 mg 01-18 10:45: 00 01-18 10:52 :00 No 4mg 4 mg, Slow IV Push, ONCE, 1 dose, On Kathie 01/18/22 at 0545, STAT [facility] traMADoL 50 mg tablet 01-18 00:00: 00 Yes [id number] 50mg Take 1 tablet by mouth every 6 (six) hours as needed for Pain (scale 7-10). Indication s: acute pain [facility] ondansetron 4 mg disintegrat ing tablet 01-18 00:00: 00 Yes [id number] 4mg Take 1 tablet by mouth every 8 (eight) hours as needed for Nausea and Vomiting (N/V). [facility] ibuprofen 600 mg tablet 01-18 00:00: 00 Yes [id number] 600mg Take 1 tablet by mouth every 6 (six) hours as needed for Pain (scale 4-6). [facility] traMADoL 50 mg tablet 01-18 00:00: 00 Yes [id number] 50mg Take 1 tablet by mouth every 6 (six) hours as needed for Pain (scale 7-10). Indication s: acute pain [facility] ondansetron 4 mg disintegrat ing tablet 01-18 00:00: 00 Yes [id number] 4mg Take 1 tablet by mouth every 8 (eight) hours as needed for Nausea and Vomiting (N/V). [facility] ibuprofen 600 mg tablet 01-18 00:00: 00 Yes [id number] 600mg Take 1 tablet by mouth every 6 (six) hours as needed for Pain (scale 4-6). [facility] traMADoL 50 mg tablet 01-18 00:00: 00 Yes [id number] 50mg Take 1 tablet by mouth every 6 (six) hours as needed for Pain (scale 7-10). Indication s: acute pain [facility] ondansetron 4 mg disintegrat ing tablet 01-18 00:00: 00 Yes [id number] 4mg Take 1 tablet by mouth every 8 (eight) hours as needed for Nausea and Vomiting (N/V). [facility] ibuprofen 600 mg tablet 01-18 00:00: 00 Yes [id number] 600mg Take 1 tablet by mouth every 6 (six) hours as needed for Pain (scale 4-6). [facility] traMADoL 50 mg tablet 01-18 00:00: 00 Yes [id number] 50mg Take 1 tablet by mouth every 6 (six) hours as needed for Pain (scale 7-10). Indication s: acute pain [facility] ondansetron 4 mg disintegrat ing tablet 01-18 00:00: 00 Yes [id number] 4mg Take 1 tablet by mouth every 8 (eight) hours as needed for Nausea and Vomiting (N/V). [facility] ibuprofen 600 mg tablet 01-18 00:00: 00 Yes [id number] 600mg Take 1 tablet by mouth every 6 (six) hours as needed for Pain (scale 4-6). [facility] traMADoL 50 mg tablet 01-18 00:00: 00 Yes [id number] 50mg Take 1 tablet by mouth every 6 (six) hours as needed for Pain (scale 7-10). Indication s: acute pain [facility] ondansetron 4 mg disintegrat ing tablet 01-18 00:00: 00 Yes [id number] 4mg Take 1 tablet by mouth every 8 (eight) hours as needed for Nausea and Vomiting (N/V). [facility] ibuprofen 600 mg tablet 01-18 00:00: 00 Yes [id number] 600mg Take 1 tablet by mouth every 6 (six) hours as needed for Pain (scale 4-6). [facility] traMADoL 50 mg tablet 01-18 00:00: 00 Yes [id number] 50mg Take 1 tablet by mouth every 6 (six) hours as needed for Pain (scale 7-10). Indication s: acute pain [facility] ondansetron 4 mg disintegrat ing tablet 01-18 00:00: 00 Yes [id number] 4mg Take 1 tablet by mouth every 8 (eight) hours as needed for Nausea and Vomiting (N/V). [facility] ibuprofen 600 mg tablet 01-18 00:00: 00 Yes [id number] 600mg Take 1 tablet by mouth every 6 (six) hours as needed for Pain (scale 4-6). [facility] traMADoL 50 mg tablet 01-18 00:00: 00 Yes [id number] 50mg Take 1 tablet by mouth every 6 (six) hours as needed for Pain (scale 7-10). Indication s: acute pain [facility] ondansetron 4 mg disintegrat ing tablet 01-18 00:00: 00 Yes [id number] 4mg Take 1 tablet by mouth every 8 (eight) hours as needed for Nausea and Vomiting (N/V). [facility] ibuprofen 600 mg tablet 0 08 00:00: 00 Yes [id number] 600mg Take 1 tablet by mouth every 6 (six) hours as needed for Pain (scale 4-6). [facility] traMADoL 50 mg tablet 2021-0 908 00:00: 00 Yes [id number] 50mg Take 1 tablet by mouth every 6 (six) hours as needed for Pain (scale 7-10). Indication s: acute pain [facility] ondansetron 4 mg disintegrat ing tablet 0 01-18 00:00: 00 Yes [id number] 4mg Take 1 tablet by mouth every 8 (eight) hours as needed for Nausea and Vomiting (N/V). [facility] ibuprofen 600 mg tablet 2021-01-18 00:00: 00 Yes [id number] 600mg Take 1 tablet by mouth every 6 (six) hours as needed for Pain (scale 4-6). [facility] traMADoL 50 mg tablet 0 01-18 00:00: 00 02-27 00:00 :00 No [id number] 50mg Take 1 tablet by mouth every 6 (six) hours as needed for Pain (scale 7-10). Indication s: acute pain [facility] ondansetron 4 mg disintegrat ing tablet 01-18 00:00: 00 02-27 00:00 :00 No [id number] 4mg Take 1 tablet by mouth every 8 (eight) hours as needed for Nausea and Vomiting (N/V). [facility] ibuprofen 600 mg tablet 08 00:00: 00 02-27 00:00 :00 No [id number] 600mg Take 1 tablet by mouth every 6 (six) hours as needed for Pain (scale 4-6). [facility] traMADoL 50 mg tablet 2021-0 08 00:00: 00 02-27 00:00 :00 No [id number] 50mg Take 1 tablet by mouth every 6 (six) hours as needed for Pain (scale 7-10). Indication s: acute pain [facility] ondansetron 4 mg disintegrat ing tablet 01-18 00:00: 00 02-27 00:00 :00 No [id number] 4mg Take 1 tablet by mouth every 8 (eight) hours as needed for Nausea and Vomiting (N/V). [facility] ibuprofen 600 mg tablet 01-18 00:00: 00 02-27 00:00 :00 No [id number] 600mg Take 1 tablet by mouth every 6 (six) hours as needed for Pain (scale 4-6). [facility] traMADoL 50 mg tablet 01-18 00:00: 00 02-27 00:00 :00 No [id number] 50mg Take 1 tablet by mouth every 6 (six) hours as needed for Pain (scale 7-10). Indication s: acute pain [facility] ondansetron 4 mg disintegrat ing tablet 01-18 00:00: 00 02-27 00:00 :00 No [id number] 4mg Take 1 tablet by mouth every 8 (eight) hours as needed for Nausea and Vomiting (N/V). [facility] ibuprofen 600 mg tablet 01-18 00:00: 00 02-27 00:00 :00 No [id number] 600mg Take 1 tablet by mouth every 6 (six) hours as needed for Pain (scale 4-6). [facility] traMADoL 50 mg tablet 01-18 00:00: 00 02-27 00:00 :00 No [id number] 50mg Take 1 tablet by mouth every 6 (six) hours as needed for Pain (scale 7-10). Indication s: acute pain [facility] ondansetron 4 mg disintegrat ing tablet 01-18 00:00: 00 02-27 00:00 :00 No [id number] 4mg Take 1 tablet by mouth every 8 (eight) hours as needed for Nausea and Vomiting (N/V). [facility] ibuprofen 600 mg tablet 01-18 00:00: 00 02-27 00:00 :00 No [id number] 600mg Take 1 tablet by mouth every 6 (six) hours as needed for Pain (scale 4-6). [facility] predniSONE 20 mg tablet 01-16 00:00: 00 01-24 04:59 :00 No [id number] 40mg Take 2 tablets by mouth in the morning for 7 days. [facility] predniSONE 20 mg tablet 01-16 00:00: 01-24 04:59 :00 No [id number] 40mg Take 2 tablets by mouth in the morning for 7 days. [facility] morpHINE (4 mg/mL) injection 4 mg 01-15 16:15: 00 01-15 15:28 :00 No 4mg 4 mg, Slow IV Push, ONCE, 1 dose, On Sat01/15/22 at 1115, [facility] proMETHazin e (PHENERGAN) 12.5 mg in NaCl 0.9% (NS) 50 mL IV piggyback 01-15 15:30: 00 01-15 15:28 :00 No 12.5mg 12.5 mg, IV Piggyback, ONCE, 1 dose, On Sat01/15/22 at 1030, [facility] NaCl 0.9% (NS) bolus infusion 1,000 mL 01-15 15:00: 00 01-15 15:38 :00 No 1000mL at 999 mL/hr, 1,000 mL, IV Infusion, ONCE, 1 dose, On Sat01/15/22 at 1000, [facility] morpHINE (4 mg/mL) injection 4 mg 01-15 15:00: 00 01-15 14:37 :00 No 4mg 4 mg, Slow IV Push, ONCE, 1 dose, On Sat01/15/22 at 1000, [facility] ondansetron (ZOFRAN (PF)) injection 8 mg 01-15 14:15: 01-15 14:37 :00 No 8mg 8 mg, Slow IV Push, ONCE, 1 dose, On Sat01/15/22 at 0915, [facility] dexamethaso ne sod phos PF injection 10 mg 01-15 14:15: 00 01-15 14:37 :00 No 10mg 10 mg, Slow IV Push, ONCE, 1 dose, On Sat01/15/22 at 0915, 1 mL [facility] proMETHazin e 25 mg tablet 01-15 00:00: 00 Yes [id number] 25mg Take 1 tablet by mouth every 6 (six) hours as needed for Nausea and Vomiting (N/V). [facility] proMETHazin e 25 mg tablet 01-15 00:00: 00 Yes [id number] 25mg Take 1 tablet by mouth every 6 (six) hours as needed for Nausea and Vomiting (N/V). [facility] proMETHazin e 25 mg tablet 01-15 00:00: 00 Yes [id number] 25mg Take 1 tablet by mouth every 6 (six) hours as needed for Nausea and Vomiting (N/V). [facility] proMETHazin e 25 mg tablet 01-15 00:00: 00 Yes [id number] 25mg Take 1 tablet by mouth every 6 (six) hours as needed for Nausea and Vomiting (N/V). [facility] proMETHazin e 25 mg tablet 01-15 00:00: 00 Yes [id number] 25mg Take 1 tablet by mouth every 6 (six) hours as needed for Nausea and Vomiting (N/V). [facility] proMETHazin e 25 mg tablet 01-15 00:00: 00 Yes [id number] 25mg Take 1 tablet by mouth every 6 (six) hours as needed for Nausea and Vomiting (N/V). [facility] proMETHazin e 25 mg tablet 01-15 00:00: 00 Yes [id number] 25mg Take 1 tablet by mouth every 6 (six) hours as needed for Nausea and Vomiting (N/V). [facility] proMETHazin e 25 mg tablet 01-15 00:00: 00 Yes [id number] 25mg Take 1 tablet by mouth every 6 (six) hours as needed for Nausea and Vomiting (N/V). [facility] proMETHazin e 25 mg tablet 01-15 00:00: 00 Yes [id number] 25mg Take 1 tablet by mouth every 6 (six) hours as needed for Nausea and Vomiting (N/V). [facility] proMETHazin e 25 mg tablet 01-15 00:00: 00 02-27 00:00 :00 No [id number] 25mg Take 1 tablet by mouth every 6 (six) hours as needed for Nausea and Vomiting (N/V). [facility] proMETHazin e 25 mg tablet 01-15 00:00: 00 02-27 00:00 :00 No [id number] 25mg Take 1 tablet by mouth every 6 (six) hours as needed for Nausea and Vomiting (N/V). [facility] proMETHazin e 25 mg tablet 01-15 00:00: 00 02-27 00:00 :00 No [id number] 25mg Take 1 tablet by mouth every 6 (six) hours as needed for Nausea and Vomiting (N/V). [facility] proMETHazin e 25 mg tablet 01-15 00:00: 00 02-27 00:00 :00 No [id number] 25mg Take 1 tablet by mouth every 6 (six) hours as needed for Nausea and Vomiting (N/V). [facility] ondansetron (ZOFRAN-ODT ) disintegrat ing tablet 4 mg 01-09 01:45: 00 01-09 00:56 :00 No 4mg 4 mg, Oral, ONCE, 1 dose, On Sat01/08/22 at 2045, Routine [facility] HYDROcodone -acetaminop hen (NORCO 5) 5-325 mg tablet 1 tablet 01-09 00:45: 00 01-09 00:37 :00 No 1{tbl} 1 tablet, Oral, ONCE, 1 dose, On Sat01/08/22 at 1945, [facility] diphenhydrA MINE (BENADRYL) injection 25 mg 01-08 23:45: 00 01-08 23:51 :00 No 25mg 25 mg, Slow IV Push, ONCE, 1 dose, On Sat01/08/22 at 1845, STAT [facility] dexamethaso ne sod phos PF injection 10 mg 01-08 23:45: 00 01-08 23:50 :00 No 10mg 10 mg, Slow IV Push, ONCE, 1 dose, On Sat01/08/22 at 1845, 1 mL [facility] ketorolac (TORADOL) injection 30 mg 01-08 23:45: 00 01-08 23:51 :00 No 30mg 30 mg, Slow IV Push, ONCE, 1 dose, On Sat01/08/22 at 1845, [facility] ondansetron 4 mg disintegrat ing tablet 01-08 00:00: 00 Yes [id number] 4mg Take 1 tablet by mouth every 8 (eight) hours as needed for Nausea and Vomiting (N/V). [facility] acetaminoph en (TYLENOL ARTHRITIS PAIN) 650 mg CR tablet 01-08 00:00: 00 Yes [id number] 650mg Take 1 tablet by mouth every 8 (eight) hours as needed for Pain. [facility] ketorolac 10 mg tablet 01-08 00:00: 00 Yes [id number] 10mg Take 1 tablet by mouth every 6 (six) hours as needed for Pain (scale 4-6) or Pain (scale 7-10). [facility] metaxalone (SKELAXIN) 800 mg tablet 01-08 00:00: 00 Yes [id number] 800mg Take 1 tablet by mouth in the morning and 1 tablet at noon and 1 tablet in the evening. [facility] ondansetron 4 mg disintegrat ing tablet 01-08 00:00: 00 Yes [id number] 4mg Take 1 tablet by mouth every 8 (eight) hours as needed for Nausea and Vomiting (N/V). [facility] acetaminoph en (TYLENOL ARTHRITIS PAIN) 650 mg CR tablet 01-08 00:00: 00 Yes [id number] 650mg Take 1 tablet by mouth every 8 (eight) hours as needed for Pain. [facility] ketorolac 10 mg tablet 01-08 00:00: 00 Yes [id number] 10mg Take 1 tablet by mouth every 6 (six) hours as needed for Pain (scale 4-6) or Pain (scale 7-10). [facility] metaxalone (SKELAXIN) 800 mg tablet 01-08 00:00: 00 Yes [id number] 800mg Take 1 tablet by mouth in the morning and 1 tablet at noon and 1 tablet in the evening. [facility] ondansetron 4 mg disintegrat ing tablet 01-08 00:00: 00 Yes [id number] 4mg Take 1 tablet by mouth every 8 (eight) hours as needed for Nausea and Vomiting (N/V). [facility] acetaminoph en (TYLENOL ARTHRITIS PAIN) 650 mg CR tablet 01-08 00:00: 00 Yes [id number] 650mg Take 1 tablet by mouth every 8 (eight) hours as needed for Pain. [facility] ketorolac 10 mg tablet 01-08 00:00: 00 Yes [id number] 10mg Take 1 tablet by mouth every 6 (six) hours as needed for Pain (scale 4-6) or Pain (scale 7-10). [facility] metaxalone (SKELAXIN) 800 mg tablet 01-08 00:00: 00 Yes [id number] 800mg Take 1 tablet by mouth in the morning and 1 tablet at noon and 1 tablet in the evening. [facility] ondansetron 4 mg disintegrat ing tablet 01-08 00:00: 00 Yes [id number] 4mg Take 1 tablet by mouth every 8 (eight) hours as needed for Nausea and Vomiting (N/V). [facility] acetaminoph en (TYLENOL ARTHRITIS PAIN) 650 mg CR tablet 01-08 00:00: 00 Yes [id number] 650mg Take 1 tablet by mouth every 8 (eight) hours as needed for Pain. [facility] ketorolac 10 mg tablet 01-08 00:00: 00 Yes [id number] 10mg Take 1 tablet by mouth every 6 (six) hours as needed for Pain (scale 4-6) or Pain (scale 7-10). [facility] metaxalone (SKELAXIN) 800 mg tablet 01-08 00:00: 00 Yes [id number] 800mg Take 1 tablet by mouth in the morning and 1 tablet at noon and 1 tablet in the evening. [facility] ondansetron 4 mg disintegrat ing tablet 01-08 00:00: 00 Yes [id number] 4mg Take 1 tablet by mouth every 8 (eight) hours as needed for Nausea and Vomiting (N/V). [facility] acetaminoph en (TYLENOL ARTHRITIS PAIN) 650 mg CR tablet 01-08 00:00: 00 Yes [id number] 650mg Take 1 tablet by mouth every 8 (eight) hours as needed for Pain. [facility] ketorolac 10 mg tablet 01-08 00:00: 00 Yes [id number] 10mg Take 1 tablet by mouth every 6 (six) hours as needed for Pain (scale 4-6) or Pain (scale 7-10). [facility] metaxalone (SKELAXIN) 800 mg tablet 01-08 00:00: 00 Yes [id number] 800mg Take 1 tablet by mouth in the morning and 1 tablet at noon and 1 tablet in the evening. [facility] ondansetron 4 mg disintegrat ing tablet 01-08 00:00: 00 Yes [id number] 4mg Take 1 tablet by mouth every 8 (eight) hours as needed for Nausea and Vomiting (N/V). [facility] acetaminoph en (TYLENOL ARTHRITIS PAIN) 650 mg CR tablet 01-08 00:00: 00 Yes [id number] 650mg Take 1 tablet by mouth every 8 (eight) hours as needed for Pain. [facility] ketorolac 10 mg tablet 01-08 00:00: 00 Yes [id number] 10mg Take 1 tablet by mouth every 6 (six) hours as needed for Pain (scale 4-6) or Pain (scale 7-10). [facility] metaxalone (SKELAXIN) 800 mg tablet 01-08 00:00: 00 Yes [id number] 800mg Take 1 tablet by mouth in the morning and 1 tablet at noon and 1 tablet in the evening. [facility] ondansetron 4 mg disintegrat ing tablet 01-08 00:00: 00 Yes [id number] 4mg Take 1 tablet by mouth every 8 (eight) hours as needed for Nausea and Vomiting (N/V). [facility] acetaminoph en (TYLENOL ARTHRITIS PAIN) 650 mg CR tablet 01-08 00:00: 00 Yes [id number] 650mg Take 1 tablet by mouth every 8 (eight) hours as needed for Pain. [facility] ketorolac 10 mg tablet 01-08 00:00: 00 Yes [id number] 10mg Take 1 tablet by mouth every 6 (six) hours as needed for Pain (scale 4-6) or Pain (scale 7-10). [facility] metaxalone (SKELAXIN) 800 mg tablet 01-08 00:00: 00 Yes [id number] 800mg Take 1 tablet by mouth in the morning and 1 tablet at noon and 1 tablet in the evening. [facility] ondansetron 4 mg disintegrat ing tablet 01-08 00:00: 00 Yes [id number] 4mg Take 1 tablet by mouth every 8 (eight) hours as needed for Nausea and Vomiting (N/V). [facility] acetaminoph en (TYLENOL ARTHRITIS PAIN) 650 mg CR tablet 01-08 00:00: 00 Yes [id number] 650mg Take 1 tablet by mouth every 8 (eight) hours as needed for Pain. [facility] ketorolac 10 mg tablet 01-08 00:00: 00 Yes [id number] 10mg Take 1 tablet by mouth every 6 (six) hours as needed for Pain (scale 4-6) or Pain (scale 7-10). [facility] metaxalone (SKELAXIN) 800 mg tablet 01-08 00:00: 00 Yes [id number] 800mg Take 1 tablet by mouth in the morning and 1 tablet at noon and 1 tablet in the evening. [facility] ondansetron 4 mg disintegrat ing tablet 01-08 00:00: 00 Yes [id number] 4mg Take 1 tablet by mouth every 8 (eight) hours as needed for Nausea and Vomiting (N/V). [facility] acetaminoph en (TYLENOL ARTHRITIS PAIN) 650 mg CR tablet 01-08 00:00: 00 Yes [id number] 650mg Take 1 tablet by mouth every 8 (eight) hours as needed for Pain. [facility] ketorolac 10 mg tablet 01-08 00:00: 00 Yes [id number] 10mg Take 1 tablet by mouth every 6 (six) hours as needed for Pain (scale 4-6) or Pain (scale 7-10). [facility] metaxalone (SKELAXIN) 800 mg tablet 01-08 00:00: 00 Yes [id number] 800mg Take 1 tablet by mouth in the morning and 1 tablet at noon and 1 tablet in the evening. [facility] ondansetron 4 mg disintegrat ing tablet 01-08 00:00: 00 Yes [id number] 4mg Take 1 tablet by mouth every 8 (eight) hours as needed for Nausea and Vomiting (N/V). [facility] acetaminoph en (TYLENOL ARTHRITIS PAIN) 650 mg CR tablet 01-08 00:00: 00 Yes [id number] 650mg Take 1 tablet by mouth every 8 (eight) hours as needed for Pain. [facility] ketorolac 10 mg tablet 01-08 00:00: 00 Yes [id number] 10mg Take 1 tablet by mouth every 6 (six) hours as needed for Pain (scale 4-6) or Pain (scale 7-10). [facility] metaxalone (SKELAXIN) 800 mg tablet 01-08 00:00: 00 Yes [id number] 800mg Take 1 tablet by mouth in the morning and 1 tablet at noon and 1 tablet in the evening. [facility] acetaminoph en (TYLENOL ARTHRITIS PAIN) 650 mg CR tablet 01-08 00:00: 00 Yes [id number] 650mg Take 1 tablet by mouth every 8 (eight) hours as needed for Pain. [facility] acetaminoph en (TYLENOL ARTHRITIS PAIN) 650 mg CR tablet 01-08 00:00: 00 Yes [id number] 650mg Take 1 tablet by mouth every 8 (eight) hours as needed for Pain. [facility] acetaminoph en (TYLENOL ARTHRITIS PAIN) 650 mg CR tablet 01-08 00:00: 00 Yes [id number] 650mg Take 1 tablet by mouth every 8 (eight) hours as needed for Pain. [facility] acetaminoph en (TYLENOL ARTHRITIS PAIN) 650 mg CR tablet 01-08 00:00: 00 Yes [id number] 650mg Take 1 tablet by mouth every 8 (eight) hours as needed for Pain. [facility] acetaminoph en (TYLENOL ARTHRITIS PAIN) 650 mg CR tablet 01-08 00:00: 00 Yes [id number] 650mg Take 1 tablet by mouth every 8 (eight) hours as needed for Pain. [facility] acetaminoph en (TYLENOL ARTHRITIS PAIN) 650 mg CR tablet 01-08 00:00: 00 Yes [id number] 650mg Take 1 tablet by mouth every 8 (eight) hours as needed for Pain. [facility] acetaminoph en (TYLENOL ARTHRITIS PAIN) 650 mg CR tablet 01-08 00:00: 00 Yes [id number] 650mg Take 1 tablet by mouth every 8 (eight) hours as needed for Pain. [facility] acetaminoph en (TYLENOL ARTHRITIS PAIN) 650 mg CR tablet 01-08 00:00: 00 Yes [id number] 650mg Take 1 tablet by mouth every 8 (eight) hours as needed for Pain. [facility] acetaminoph en (TYLENOL ARTHRITIS PAIN) 650 mg CR tablet 01-08 00:00: 00 Yes [id number] 650mg Take 1 tablet by mouth every 8 (eight) hours as needed for Pain. [facility] acetaminoph en (TYLENOL ARTHRITIS PAIN) 650 mg CR tablet 01-08 00:00: 00 Yes [id number] 650mg Take 1 tablet by mouth every 8 (eight) hours as needed for Pain. [facility] acetaminoph en (TYLENOL ARTHRITIS PAIN) 650 mg CR tablet 01-08 00:00: 00 Yes [id number] 650mg Take 1 tablet by mouth every 8 (eight) hours as needed for Pain. [facility] acetaminoph en (TYLENOL ARTHRITIS PAIN) 650 mg CR tablet 01-08 00:00: 00 Yes [id number] 650mg Take 1 tablet by mouth every 8 (eight) hours as needed for Pain. [facility] acetaminoph en (TYLENOL ARTHRITIS PAIN) 650 mg CR tablet 01-08 00:00: 00 Yes [id number] 650mg Take 1 tablet by mouth every 8 (eight) hours as needed for Pain. [facility] acetaminoph en (TYLENOL ARTHRITIS PAIN) 650 mg CR tablet 01-08 00:00: 00 Yes [id number] 650mg Take 1 tablet by mouth every 8 (eight) hours as needed for Pain. [facility] acetaminoph en (TYLENOL ARTHRITIS PAIN) 650 mg CR tablet 01-08 00:00: 00 Yes [id number] 650mg Take 1 tablet by mouth every 8 (eight) hours as needed for Pain. [facility] acetaminoph en (TYLENOL ARTHRITIS PAIN) 650 mg CR tablet 01-08 00:00: 00 Yes [id number] 650mg Take 1 tablet by mouth every 8 (eight) hours as needed for Pain. [facility] acetaminoph en (TYLENOL ARTHRITIS PAIN) 650 mg CR tablet 01-08 00:00: 00 Yes [id number] 650mg Take 1 tablet by mouth every 8 (eight) hours as needed for Pain. [facility] acetaminoph en (TYLENOL ARTHRITIS PAIN) 650 mg CR tablet 01-08 00:00: 00 04-07 00:00 :00 No [id number] 650mg Take 1 tablet by mouth every 8 (eight) hours as needed for Pain. [facility] ondansetron 4 mg disintegrat ing tablet 01-08 00:00: 00 02-27 00:00 :00 No [id number] 4mg Take 1 tablet by mouth every 8 (eight) hours as needed for Nausea and Vomiting (N/V). [facility] ketorolac 10 mg tablet 01-08 00:00: 00 02-27 00:00 :00 No [id number] 10mg Take 1 tablet by mouth every 6 (six) hours as needed for Pain (scale 4-6) or Pain (scale 7-10). [facility] metaxalone (SKELAXIN) 800 mg tablet 01-08 00:00: 00 02-27 00:00 :00 No [id number] 800mg Take 1 tablet by mouth in the morning and 1 tablet at noon and 1 tablet in the evening. [facility] ondansetron 4 mg disintegrat ing tablet 01-08 00:00: 00 02-27 00:00 :00 No [id number] 4mg Take 1 tablet by mouth every 8 (eight) hours as needed for Nausea and Vomiting (N/V). [facility] ketorolac 10 mg tablet 01-08 00:00: 00 02-27 00:00 :00 No [id number] 10mg Take 1 tablet by mouth every 6 (six) hours as needed for Pain (scale 4-6) or Pain (scale 7-10). [facility] metaxalone (SKELAXIN) 800 mg tablet 01-08 00:00: 00 02-27 00:00 :00 No [id number] 800mg Take 1 tablet by mouth in the morning and 1 tablet at noon and 1 tablet in the evening. [facility] ondansetron 4 mg disintegrat ing tablet 01-08 00:00: 00 02-27 00:00 :00 No [id number] 4mg Take 1 tablet by mouth every 8 (eight) hours as needed for Nausea and Vomiting (N/V). [facility] ketorolac 10 mg tablet 01-08 00:00: 00 02-27 00:00 :00 No [id number] 10mg Take 1 tablet by mouth every 6 (six) hours as needed for Pain (scale 4-6) or Pain (scale 7-10). [facility] metaxalone (SKELAXIN) 800 mg tablet 01-08 00:00: 00 02-27 00:00 :00 No [id number] 800mg Take 1 tablet by mouth in the morning and 1 tablet at noon and 1 tablet in the evening. [facility] ondansetron 4 mg disintegrat ing tablet 01-08 00:00: 00 02-27 00:00 :00 No [id number] 4mg Take 1 tablet by mouth every 8 (eight) hours as needed for Nausea and Vomiting (N/V). [facility] ketorolac 10 mg tablet 01-08 00:00: 00 02-27 00:00 :00 No [id number] 10mg Take 1 tablet by mouth every 6 (six) hours as needed for Pain (scale 4-6) or Pain (scale 7-10). [facility] metaxalone (SKELAXIN) 800 mg tablet 01-08 00:00: 00 02-27 00:00 :00 No [id number] 800mg Take 1 tablet by mouth in the morning and 1 tablet at noon and 1 tablet in the evening. [facility] metroNIDAZO LE 500 mg tablet 808 00:00: 00 Yes 500mg Take 1 tablet by mouth every 12 (twelve) hours. [facility] metroNIDAZO LE 500 mg tablet 2-0 8-08 00:00: 00 Yes 500mg Take 1 tablet by mouth every 12 (twelve) hours. [facility] metroNIDAZO LE 500 mg tablet 2021-0 8-08 00:00: 00 Yes 500mg Take 1 tablet by mouth every 12 (twelve) hours. [facility] metroNIDAZO LE 500 mg tablet 2-0 8-08 00:00: 00 Yes 500mg Take 1 tablet by mouth every 12 (twelve) hours. [facility] metroNIDAZO LE 500 mg tablet 2-0 8-08 00:00: 00 Yes 500mg Take 1 tablet by mouth every 12 (twelve) hours. [facility] metroNIDAZO LE 500 mg tablet 2021-0 8-08 00:00: 00 Yes 500mg Take 1 tablet by mouth every 12 (twelve) hours. [facility] metroNIDAZO LE 500 mg tablet 2021-0 8-08 00:00: 00 Yes 500mg Take 1 tablet by mouth every 12 (twelve) hours. [facility] metroNIDAZO LE 500 mg tablet 2021-0 8-08 00:00: 00 Yes 500mg Take 1 tablet by mouth every 12 (twelve) hours. [facility] metroNIDAZO LE 500 mg tablet 2021-0 8-08 00:00: 00 Yes 500mg Take 1 tablet by mouth every 12 (twelve) hours. [facility] metroNIDAZO LE 500 mg tablet 2-0 8-08 00:00: 00 Yes 500mg Take 1 tablet by mouth every 12 (twelve) hours. [facility] metroNIDAZO LE 500 mg tablet 2-0 8-08 00:00: 00 Yes 500mg Take 1 tablet by mouth every 12 (twelve) hours. [facility] metroNIDAZO LE 500 mg tablet 2-0 8-08 00:00: 00 02-27 00:00 :00 No 500mg Take 1 tablet by mouth every 12 (twelve) hours. [facility] metroNIDAZO LE 500 mg tablet 2-0 8-08 00:00: 00 18 00:00 :00 No 500mg Take 1 tablet by mouth every 12 (twelve) hours. [facility] metroNIDAZO LE 500 mg tablet 8-08 00:00: 00 02-27 00:00 :00 No 500mg Take 1 tablet by mouth every 12 (twelve) hours. [facility] metroNIDAZO LE 500 mg tablet -08 00:00: 00 02-27 00:00 :00 No 500mg Take 1 tablet by mouth every 12 (twelve) hours. [facility] trazodone/d ietary supp. no.8 (TRAZAMINE ORAL) 12-12 15:08: 46 12-12 00:00 :00 No Take by mouth. [facility] diphenhydrA MINE 25 mg capsule 12-12 13:03: 04 Yes 25mg Take 25 mg by mouth every 6 (six) hours as needed for Allergies. [facility] carbamazepi ne (TEGRETOL ORAL) 12-12 13:03: 04 Yes Take by mouth. [facility] citalopram hydrobromid e (CITALOPRAM ORAL) 12-12 13:03: 04 Yes Take by mouth. [facility] ALBUTEROL INHALE 12-12 13:03: 04 Yes [facility] diphenhydrA MINE 25 mg capsule 12-12 13:03: 04 Yes 25mg Take 25 mg by mouth every 6 (six) hours as needed for Allergies. [facility] carbamazepi ne (TEGRETOL ORAL) 12-12 13:03: 04 Yes Take by mouth. [facility] citalopram hydrobromid e (CITALOPRAM ORAL) 12-12 13:03: 04 Yes Take by mouth. [facility] ALBUTEROL INHALE 12-12 13:03: 04 Yes [facility] diphenhydrA MINE 25 mg capsule 12-12 13:03: 04 Yes 25mg Take 25 mg by mouth every 6 (six) hours as needed for Allergies. [facility] carbamazepi ne (TEGRETOL ORAL) 12-12 13:03: 04 Yes Take by mouth. [facility] citalopram hydrobromid e (CITALOPRAM ORAL) 12-12 13:03: 04 Yes Take by mouth. [facility] ALBUTEROL INHALE 12-12 13:03: 04 Yes [facility] diphenhydrA MINE 25 mg capsule 12-12 13:03: 04 Yes 25mg Take 25 mg by mouth every 6 (six) hours as needed for Allergies. [facility] carbamazepi ne (TEGRETOL ORAL) 12-12 13:03: 04 Yes Take by mouth. [facility] citalopram hydrobromid e (CITALOPRAM ORAL) 12-12 13:03: 04 Yes Take by mouth. [facility] ALBUTEROL INHALE 12-12 13:03: 04 Yes [facility] diphenhydrA MINE 25 mg capsule 12-12 13:03: 04 Yes 25mg Take 25 mg by mouth every 6 (six) hours as needed for Allergies. [facility] carbamazepi ne (TEGRETOL ORAL) 12-12 13:03: 04 Yes Take by mouth. [facility] citalopram hydrobromid e (CITALOPRAM ORAL) 12-12 13:03: 04 Yes Take by mouth. [facility] ALBUTEROL INHALE 12-12 13:03: 04 Yes [facility] diphenhydrA MINE 25 mg capsule 12-12 13:03: 04 Yes 25mg Take 25 mg by mouth every 6 (six) hours as needed for Allergies. [facility] carbamazepi ne (TEGRETOL ORAL) 12-12 13:03: 04 Yes Take by mouth. [facility] citalopram hydrobromid e (CITALOPRAM ORAL) 12-12 13:03: 04 Yes Take by mouth. [facility] ALBUTEROL INHALE 12-12 13:03: [address] [facility] diphenhydrA MINE 25 mg capsule 12-12 13:03: 04 Yes 25mg Take 25 mg by mouth every 6 (six) hours as needed for Allergies. [facility]AL[facility] 12-12 13:03: 04 Yes Take by mouth. [facility] citalopram hydrobromid e (CITALOPRAM ORAL) 12-12 13:03: 04 Yes Take by mouth. [facility] AL[facility]ALE 12-12 13:03: [address] [facility] diphen[facility]A MINE 25 mg capsule 12-12 13:03: 04 Yes 25mg Take 25 mg by mouth every 6 (six) hours as needed for Allergies. [facility] carbamazepi ne (TEGRETOL ORAL) 12-12 13:03: 04 Yes Take by mouth. [facility] citalopram hydrobromid e (CITALOPRAM ORAL) 12-12 13:03: 04 Yes Take by mouth. [facility] ALBUTEROL INHALE 12-12 13:03: 04 Yes [facility] diphenhydrA MINE 25 mg capsule 12-12 13:03: 04 Yes 25mg Take 25 mg by mouth every 6 (six) hours as needed for Allergies. [facility] carbamazepi ne (TEGRETOL ORAL) 12-12 13:03: 04 Yes Take by mouth. [facility] citalopram hydrobromid e (CITALOPRAM ORAL) 12-12 13:03: 04 Yes Take by mouth. [facility] ALBUTEROL INHALE 12-12 13:03: [address] [facility]INE 25 mg capsule 12-12 13:03: 04 Yes 25mg Take 25 mg by mouth every 6 (six) hours as needed for Allergies[facility] carbamazepi ne (TEGRETOL ORAL) 0 12-12 13:03: 04 Yes Take by mouth. [facility] citalopram hydrobromid e (CITALOPRAM ORAL) 12-12 13:03: 04 Yes Take by mouth. [facility] ALBUTEROL INHALE 0 12-12 13:03: 04 Yes [facility] diphenhydrA MINE 25 mg capsule 12-12 13:03: 04 Yes 25mg Take 25 mg by mouth every 6 (six) hours as needed for Allergies. [facility] carbamazepi ne (TEGRETOL ORAL) 12-12 13:03: 04 Yes Take by mouth. [facility] citalopram hydrobromid e (CITALOPRAM ORAL) 12-12 13:03: 04 Yes Take by mouth. [facility] ALBUTEROL INHALE 0 8 13:03: 04 Yes [facility] ALBUTEROL INHALE 2021-0 8 13:03: 04 Yes [facility] ALBUTEROL INHALE 2021-0 8 13:03: 04 Yes [facility] ALBUTEROL INHALE 2021-0 8 13:03: 04 Yes [facility] [facility] ALBUTEROL INHALE 2021-0 8 13:03: 04 Yes [facility] ALBUTEROL INHALE 2021-0 8 13:03: 04 Yes [facility] ALBUTEROL INHALE 2021-0 8 13:03: 04 Yes [facility] ALBUTEROL INHALE 2021-0 8 13:03: 04 Yes [facility] ALBUTEROL INHALE 2021-0 8 13:03: 04 Yes [facility] ALBUTEROL INHALE 0 8- 13:03: 04 Yes [facility] ALBUTEROL INHALE 2021-0 8- 13:03: 04 Yes [facility] ALBUTEROL INHALE 2021-0 12-12 13:03: 04 Yes [facility] ALBUTEROL INHALE 2021-0 12-12 13:03: 04 Yes [facility] ALBUTEROL INHALE 0 12-12 13:03: 04 Yes [facility] ALBUTEROL INHALE 2021-0 12-12 13:03: 04 Yes [facility] traZODone 50 mg tablet 2021-0 12-12 00:00: 00 Yes [id number] 50mg Take 1 tablet by mouth at bedtime. [facility] SERTraline (ZOLOFT) 50 mg tablet 2021-0 12-12 00:00: 00 Yes [id number] 50mg Take 1 tablet by mouth in the morning. [facility] traZODone 50 mg tablet 2021-0 12-12 00:00: 00 Yes [id number] 50mg Take 1 tablet by mouth at bedtime. [facility] SERTraline (ZOLOFT) 50 mg tablet 2021-0 12-12 00:00: 00 Yes [id number] 50mg Take 1 tablet by mouth in the morning. [facility] traZODone 50 mg tablet 2021-0 12-12 00:00: 00 Yes [id number] 50mg Take 1 tablet by mouth at bedtime. [facility] SERTraline (ZOLOFT) 50 mg tablet 2021-0 12-12 00:00: 00 Yes [id number] 50mg Take 1 tablet by mouth in the morning. [facility] traZODone 50 mg tablet 2021-0 12-12 00:00: 00 Yes [id number] 50mg Take 1 tablet by mouth at bedtime. [facility] SERTraline (ZOLOFT) 50 mg tablet 2021-0 12-12 00:00: 00 Yes [id number] 50mg Take 1 tablet by mouth in the morning. [facility] traZODone 50 mg tablet 2021-0 - 00:00: 00 Yes [id number] 50mg Take 1 tablet by mouth at bedtime. [facility] SERTraline (ZOLOFT) 50 mg tablet 0 12-12 00:00: 00 Yes [id number] 50mg Take 1 tablet by mouth in the morning. [facility] traZODone 50 mg tablet 0 12-12 00:00: 00 Yes [id number] 50mg Take 1 tablet by mouth at bedtime. [facility] SERTraline (ZOLOFT) 50 mg tablet 0 12-12 00:00: 00 Yes [id number] 50mg Take 1 tablet by mouth in the morning. [facility] traZODone 50 mg tablet 0 12-12 00:00: 00 Yes [id number] 50mg Take 1 tablet by mouth at bedtime. [facility] SERTraline (ZOLOFT) 50 mg tablet 0 12-12 00:00: 00 Yes [id number] 50mg Take 1 tablet by mouth in the morning. [facility] traZODone 50 mg tablet 0 12-12 00:00: 00 Yes [id number] 50mg Take 1 tablet by mouth at bedtime. [facility] SERTraline (ZOLOFT) 50 mg tablet 0 12-12 00:00: 00 Yes [id number] 50mg Take 1 tablet by mouth in the morning. [facility] traZODone 50 mg tablet 0 12-12 00:00: 00 Yes [id number] 50mg Take 1 tablet by mouth at bedtime. [facility] SERTraline (ZOLOFT) 50 mg tablet 0 12-12 00:00: 00 Yes [id number] 50mg Take 1 tablet by mouth in the morning. [facility] traZODone 50 mg tablet 2021-0 12-12 00:00: 00 Yes [id number] 50mg Take 1 tablet by mouth at bedtime. [facility] SERTraline (ZOLOFT) 50 mg tablet 0 12-12 00:00: 00 Yes [id number] 50mg Take 1 tablet by mouth in the morning. [facility] traZODone 50 mg tablet 2021-0 12-12 00:00: 00 Yes [id number] 50mg Take 1 tablet by mouth at bedtime. [facility] SERTraline (ZOLOFT) 50 mg tablet 0 8-02 00:00: 00 Yes [id number] 50mg Take 1 tablet by mouth in the morning. [facility] traZODone 50 mg tablet 2021-0 8-02 00:00: 00 02-27 00:00 :00 No [id number] 50mg Take 1 tablet by mouth at bedtime. [facility] SERTraline (ZOLOFT) 50 mg tablet 0 8- 00:00: 00 02-27 00:00 :00 No [id number] 50mg Take 1 tablet by mouth in the morning. [facility] traZODone 50 mg tablet 8- 00:00: 00 02-27 00:00 :00 No [id number] 50mg Take 1 tablet by mouth at bedtime. [facility] SERTraline (ZOLOFT) 50 mg tablet 0 8- 00:00: 00 02-27 00:00 :00 No [id number] 50mg Take 1 tablet by mouth in the morning. [facility] traZODone 50 mg tablet 0 8- 00:00: 00 02-27 00:00 :00 No [id number] 50mg Take 1 tablet by mouth at bedtime. [facility] SERTraline (ZOLOFT) 50 mg tablet 0 8- 00:00: 00 02-27 00:00 :00 No [id number] 50mg Take 1 tablet by mouth in the morning. [facility] traZODone 50 mg tablet 2021-0 8-02 00:00: 00 02-27 00:00 :00 No [id number] 50mg Take 1 tablet by mouth at bedtime. [facility] SERTraline (ZOLOFT) 50 mg tablet 2021-0 8-02 00:00: 00 02-27 00:00 :00 No [id number] 50mg Take 1 tablet by mouth in the morning. [facility] sulfamethox azole-trime thoprim (BACTRIM DS) 800-160 mg per tablet 8 00:00: 00 12-16 04:59 :00 No [id number] 1{tbl} Take 1 tablet by mouth in the morning and 1 tablet in the evening. Do all this for 3 days. [facility] ibuprofen 600 mg tablet 0 7-15 00:00: 00 Yes [id number] 600mg Take 1 tablet by mouth every 6 (six) hours as needed for Pain (scale 4-6). [facility] ibuprofen 600 mg tablet 0 -15 00:00: 00 Yes [id number] 600mg Take 1 tablet by mouth every 6 (six) hours as needed for Pain (scale 4-6). [facility] ibuprofen 600 mg tablet 0 -15 00:00: 00 Yes [id number] 600mg Take 1 tablet by mouth every 6 (six) hours as needed for Pain (scale 4-6). [facility] ibuprofen 600 mg tablet 0 15 00:00: 00 Yes [id number] 600mg Take 1 tablet by mouth every 6 (six) hours as needed for Pain (scale 4-6). [facility] ibuprofen 600 mg tablet 0 15 00:00: 00 Yes [id number] 600mg Take 1 tablet by mouth every 6 (six) hours as needed for Pain (scale 4-6). [facility] ibuprofen 600 mg tablet 0 7-15 00:00: 00 Yes [id number] 600mg Take 1 tablet by mouth every 6 (six) hours as needed for Pain (scale 4-6). [facility] ibuprofen 600 mg tablet 0 7-15 00:00: 00 Yes [id number] 600mg Take 1 tablet by mouth every 6 (six) hours as needed for Pain (scale 4-6). [facility] ibuprofen 600 mg tablet 0 7-15 00:00: 00 Yes [id number] 600mg Take 1 tablet by mouth every 6 (six) hours as needed for Pain (scale 4-6). [facility] ibuprofen 600 mg tablet 11-24 00:00: 00 Yes [id number] 600mg Take 1 tablet by mouth every 6 (six) hours as needed for Pain (scale 4-6). [facility] ibuprofen 600 mg tablet 11-24 00:00: 00 Yes [id number] 600mg Take 1 tablet by mouth every 6 (six) hours as needed for Pain (scale 4-6). [facility] ibuprofen 600 mg tablet 11-24 00:00: 00 Yes [id number] 600mg Take 1 tablet by mouth every 6 (six) hours as needed for Pain (scale 4-6). [facility] ibuprofen 600 mg tablet 11-24 00:00: 00 02-27 00:00 :00 No [id number] 600mg Take 1 tablet by mouth every 6 (six) hours as needed for Pain (scale 4-6). [facility] ibuprofen 600 mg tablet 11-24 00:00: 00 02-27 00:00 :00 No [id number] 600mg Take 1 tablet by mouth every 6 (six) hours as needed for Pain (scale 4-6). [facility] ibuprofen 600 mg tablet 11-24 00:00: 00 02-27 00:00 :00 No [id number] 600mg Take 1 tablet by mouth every 6 (six) hours as needed for Pain (scale 4-6). [facility] ibuprofen 600 mg tablet 11-24 00:00: 00 02-27 00:00 :00 No [id number] 600mg Take 1 tablet by mouth every 6 (six) hours as needed for Pain (scale 4-6). [facility] ibuprofen 600 mg tablet 11-24 00:00: 00 02-27 00:00 :00 No [id number] 600mg Take 1 tablet by mouth every 6 (six) hours as needed for Pain (scale 4-6). [facility] acetaminoph en-codeine 300-30 mg tablet 11-24 00:00: 00 12-12 00:00 :00 No [id number] 1{tbl} Take 1 tablet by mouth every 4 (four) hours as needed for Pain (scale 4-6). Indication s: acute pain [facility] acetaminoph en-codeine 300-30 mg tablet 11-24 00:00: 00 12-12 00:00 :00 No [id number] 1{tbl} Take 1 tablet by mouth every 4 (four) hours as needed for Pain (scale 4-6). Indication s: acute pain [facility] bromphenira mine-pseudo ephedrine-D M (BROMFED DM) 2-30-10 mg/5 mL syrup 11-18 00:00: 00 Yes [id number] 5mL Take 5 mL by mouth 4 (four) times daily as needed for Congestion /Allergies or Cough. [facility] naproxen 500 mg tablet 11-18 00:00: 00 Yes [id number] 500mg Take 1 tablet by mouth every 8 (eight) hours as needed for Pain (scale 4-6). [facility] cyclobenzap rine 10 mg tablet 11-18 00:00: 00 Yes [id number] 10mg Take 1 tablet by mouth at bedtime as needed for Muscle Spasms. [facility] bromphenira mine-pseudo ephedrine-D M (BROMFED DM) 2-30-10 mg/5 mL syrup 11-18 00:00: 00 Yes [id number] 5mL Take 5 mL by mouth 4 (four) times daily as needed for Congestion /Allergies or Cough. [facility] naproxen 500 mg tablet 11-18 00:00: 00 Yes [id number] 500mg Take 1 tablet by mouth every 8 (eight) hours as needed for Pain (scale 4-6). [facility] cyclobenzap rine 10 mg tablet 11-18 00:00: 00 Yes [id number] 10mg Take 1 tablet by mouth at bedtime as needed for Muscle Spasms. [facility] bromphenira mine-pseudo ephedrine-D M (BROMFED DM) 2-30-10 mg/5 mL syrup 0 11-18 00:00: 00 Yes [id number] 5mL Take 5 mL by mouth 4 (four) times daily as needed for Congestion /Allergies or Cough. [facility] naproxen 500 mg tablet 11-18 00:00: 00 Yes [id number] 500mg Take 1 tablet by mouth every 8 (eight) hours as needed for Pain (scale 4-6). [facility] cyclobenzap rine 10 mg tablet 11-18 00:00: 00 Yes [id number] 10mg Take 1 tablet by mouth at bedtime as needed for Muscle Spasms. [facility] bromphenira mine-pseudo ephedrine-D M (BROMFED DM) 2-30-10 mg/5 mL syrup 11-18 00:00: 00 Yes [id number] 5mL Take 5 mL by mouth 4 (four) times daily as needed for Congestion /Allergies or Cough. [facility] naproxen 500 mg tablet 11-18 00:00: 00 Yes [id number] 500mg Take 1 tablet by mouth every 8 (eight) hours as needed for Pain (scale 4-6). [facility] cyclobenzap rine 10 mg tablet 11-18 00:00: 00 Yes [id number] 10mg Take 1 tablet by mouth at bedtime as needed for Muscle Spasms. [facility] bromphenira mine-pseudo ephedrine-D M (BROMFED DM) 2-30-10 mg/5 mL syrup 11-18 00:00: 00 Yes [id number] 5mL Take 5 mL by mouth 4 (four) times daily as needed for Congestion /Allergies or Cough. [facility] naproxen 500 mg tablet 11-18 00:00: 00 Yes [id number] 500mg Take 1 tablet by mouth every 8 (eight) hours as needed for Pain (scale 4-6). [facility] cyclobenzap rine 10 mg tablet 11-18 00:00: 00 Yes [id number] 10mg Take 1 tablet by mouth at bedtime as needed for Muscle Spasms. [facility] bromphenira mine-pseudo ephedrine-D M (BROMFED DM) 2-30-10 mg/5 mL syrup 0 11-18 00:00: 00 Yes [id number] 5mL Take 5 mL by mouth 4 (four) times daily as needed for Congestion /Allergies or Cough. [facility] naproxen 500 mg tablet 2021-0 11-18 00:00: 00 Yes [id number] 500mg Take 1 tablet by mouth every 8 (eight) hours as needed for Pain (scale 4-6). [facility] cyclobenzap rine 10 mg tablet 0 11-18 00:00: 00 Yes [id number] 10mg Take 1 tablet by mouth at bedtime as needed for Muscle Spasms. [facility] bromphenira mine-pseudo ephedrine-D M (BROMFED DM) 2-30-10 mg/5 mL syrup 0 11-18 00:00: 00 Yes [id number] 5mL Take 5 mL by mouth 4 (four) times daily as needed for Congestion /Allergies or Cough. [facility] naproxen 500 mg tablet 0 11-18 00:00: 00 Yes [id number] 500mg Take 1 tablet by mouth every 8 (eight) hours as needed for Pain (scale 4-6). [facility] cyclobenzap rine 10 mg tablet 2021-0 11-18 00:00: 00 Yes [id number] 10mg Take 1 tablet by mouth at bedtime as needed for Muscle Spasms. [facility] bromphenira mine-pseudo ephedrine-D M (BROMFED DM) 2-30-10 mg/5 mL syrup 0 11-18 00:00: 00 Yes [id number] 5mL Take 5 mL by mouth 4 (four) times daily as needed for Congestion /Allergies or Cough. [facility] naproxen 500 mg tablet 0 11-18 00:00: 00 Yes [id number] 500mg Take 1 tablet by mouth every 8 (eight) hours as needed for Pain (scale 4-6). [facility] cyclobenzap rine 10 mg tablet 11-18 00:00: 00 Yes [id number] 10mg Take 1 tablet by mouth at bedtime as needed for Muscle Spasms. [facility] bromphenira mine-pseudo ephedrine-D M (BROMFED DM) 2-30-10 mg/5 mL syrup 11-18 00:00: 00 Yes [id number] 5mL Take 5 mL by mouth 4 (four) times daily as needed for Congestion /Allergies or Cough. [facility] naproxen 500 mg tablet 11-18 00:00: 00 Yes [id number] 500mg Take 1 tablet by mouth every 8 (eight) hours as needed for Pain (scale 4-6). [facility] cyclobenzap rine 10 mg tablet 11-18 00:00: 00 Yes [id number] 10mg Take 1 tablet by mouth at bedtime as needed for Muscle Spasms. [facility] bromphenira mine-pseudo ephedrine-D M (BROMFED DM) 2-30-10 mg/5 mL syrup 11-18 00:00: 00 Yes [id number] 5mL Take 5 mL by mouth 4 (four) times daily as needed for Congestion /Allergies or Cough. [facility] naproxen 500 mg tablet 11-18 00:00: 00 Yes [id number] 500mg Take 1 tablet by mouth every 8 (eight) hours as needed for Pain (scale 4-6). [facility] cyclobenzap rine 10 mg tablet 11-18 00:00: 00 Yes [id number] 10mg Take 1 tablet by mouth at bedtime as needed for Muscle Spasms. [facility] bromphenira mine-pseudo ephedrine-D M (BROMFED DM) 2-30-10 mg/5 mL syrup 11-18 00:00: 00 Yes [id number] 5mL Take 5 mL by mouth 4 (four) times daily as needed for Congestion /Allergies or Cough. [facility] naproxen 500 mg tablet 11-18 00:00: 00 Yes [id number] 500mg Take 1 tablet by mouth every 8 (eight) hours as needed for Pain (scale 4-6). [facility] cyclobenzap rine 10 mg tablet 11-18 00:00: 00 Yes [id number] 10mg Take 1 tablet by mouth at bedtime as needed for Muscle Spasms. [facility] bromphenira mine-pseudo ephedrine-D M (BROMFED DM) 2-30-10 mg/5 mL syrup 0 11-18 00:00: 00 Yes [id number] 5mL Take 5 mL by mouth 4 (four) times daily as needed for Congestion /Allergies or Cough. [facility] bromphenira mine-pseudo ephedrine-D M (BROMFED DM) 2-30-10 mg/5 mL syrup 0 11-18 00:00: 00 Yes [id number] 5mL Take 5 mL by mouth 4 (four) times daily as needed for Congestion /Allergies or Cough. [facility] bromphenira mine-pseudo ephedrine-D M (BROMFED DM) 2-30-10 mg/5 mL syrup 0 11-18 00:00: 00 Yes [id number] 5mL Take 5 mL by mouth 4 (four) times daily as needed for Congestion /Allergies or Cough. [facility] bromphenira mine-pseudo ephedrine-D M (BROMFED DM) 2-30-10 mg/5 mL syrup 2021-0 11-18 00:00: 00 Yes [id number] 5mL Take 5 mL by mouth 4 (four) times daily as needed for Congestion /Allergies or Cough. [facility] bromphenira mine-pseudo ephedrine-D M (BROMFED DM) 2-30-10 mg/5 mL syrup 0 11-18 00:00: 00 Yes [id number] 5mL Take 5 mL by mouth 4 (four) times daily as needed for Congestion /Allergies or Cough. [facility] bromphenira mine-pseudo ephedrine-D M (BROMFED DM) 2-30-10 mg/5 mL syrup 0 11-18 00:00: 00 Yes [id number] 5mL Take 5 mL by mouth 4 (four) times daily as needed for Congestion /Allergies or Cough. [facility] bromphenira mine-pseudo ephedrine-D M (BROMFED DM) 2-30-10 mg/5 mL syrup 2022-0 7- 00:00: 00 Yes [id number] 5mL Take 5 mL by mouth 4 (four) times daily as needed for Congestion /Allergies or Cough. [facility] bromphenira mine-pseudo ephedrine-D M (BROMFED DM) 2-30-10 mg/5 mL syrup 2022-0 7- 00:00: 00 Yes [id number] 5mL Take 5 mL by mouth 4 (four) times daily as needed for Congestion /Allergies or Cough. [facility] bromphenira mine-pseudo ephedrine-D M (BROMFED DM) 2-30-10 mg/5 mL syrup 2022-0 7- 00:00: 00 Yes [id number] 5mL Take 5 mL by mouth 4 (four) times daily as needed for Congestion /Allergies or Cough. [facility] bromphenira mine-pseudo ephedrine-D M (BROMFED DM) 2-30-10 mg/5 mL syrup 2-0 7 00:00: 00 Yes [id number] 5mL Take 5 mL by mouth 4 (four) times daily as needed for Congestion /Allergies or Cough. [facility] bromphenira mine-pseudo ephedrine-D M (BROMFED DM) 2-30-10 mg/5 mL syrup 2022-0 7 00:00: 00 Yes [id number] 5mL Take 5 mL by mouth 4 (four) times daily as needed for Congestion /Allergies or Cough. [facility] bromphenira mine-pseudo ephedrine-D M (BROMFED DM) 2-30-10 mg/5 mL syrup 2022-0 7- 00:00: 00 Yes [id number] 5mL Take 5 mL by mouth 4 (four) times daily as needed for Congestion /Allergies or Cough. [facility] bromphenira mine-pseudo ephedrine-D M (BROMFED DM) 2-30-10 mg/5 mL syrup 2022-0 7- 00:00: 00 Yes [id number] 5mL Take 5 mL by mouth 4 (four) times daily as needed for Congestion /Allergies or Cough. [facility] bromphenira mine-pseudo ephedrine-D M (BROMFED DM) 2-30-10 mg/5 mL syrup 0 11-18 00:00: 00 Yes [id number] 5mL Take 5 mL by mouth 4 (four) times daily as needed for Congestion /Allergies or Cough. [facility] bromphenira mine-pseudo ephedrine-D M (BROMFED DM) 2-30-10 mg/5 mL syrup 0 11-18 00:00: 00 03-24 00:00 :00 No [id number] 5mL Take 5 mL by mouth 4 (four) times daily as needed for Congestion /Allergies or Cough. [facility] bromphenira mine-pseudo ephedrine-D M (BROMFED DM) 2-30-10 mg/5 mL syrup 0 11-18 00:00: 00 03-24 00:00 :00 No [id number] 5mL Take 5 mL by mouth 4 (four) times daily as needed for Congestion /Allergies or Cough. [facility] naproxen 500 mg tablet 11-18 00:00: 00 02-27 00:00 :00 No [id number] 500mg Take 1 tablet by mouth every 8 (eight) hours as needed for Pain (scale 4-6). [facility] cyclobenzap rine 10 mg tablet 11-18 00:00: 00 02-27 00:00 :00 No [id number] 10mg Take 1 tablet by mouth at bedtime as needed for Muscle Spasms. [facility] naproxen 500 mg tablet 11-18 00:00: 00 02-27 00:00 :00 No [id number] 500mg Take 1 tablet by mouth every 8 (eight) hours as needed for Pain (scale 4-6). [facility] cyclobenzap rine 10 mg tablet 11-18 00:00: 00 02-27 00:00 :00 No [id number] 10mg Take 1 tablet by mouth at bedtime as needed for Muscle Spasms. [facility] naproxen 500 mg tablet 11-18 00:00: 00 02-27 00:00 :00 No [id number] 500mg Take 1 tablet by mouth every 8 (eight) hours as needed for Pain (scale 4-6). [facility] cyclobenzap rine 10 mg tablet 11-18 00:00: 00 02-27 00:00 :00 No [id number] 10mg Take 1 tablet by mouth at bedtime as needed for Muscle Spasms. [facility] naproxen 500 mg tablet 11-18 00:00: 00 02-27 00:00 :00 No [id number] 500mg Take 1 tablet by mouth every 8 (eight) hours as needed for Pain (scale 4-6). [facility] cyclobenzap rine 10 mg tablet 11-18 00:00: 00 02-27 00:00 :00 No [id number] 10mg Take 1 tablet by mouth at bedtime as needed for Muscle Spasms. [facility] naproxen 500 mg tablet 11-18 00:00: 00 02-27 00:00 :00 No [id number] 500mg Take 1 tablet by mouth every 8 (eight) hours as needed for Pain (scale 4-6). [facility] cyclobenzap rine 10 mg tablet 11-18 00:00: 00 02-27 00:00 :00 No [id number] 10mg Take 1 tablet by mouth at bedtime as needed for Muscle Spasms. [facility] ibuprofen 100 mg/5 mL oral suspension 10-25 00:00: 00 Yes [id number] 605mg Take 30.25 mL by mouth every 6 (six) hours as needed for Pain (scale 4-6) or Temp > 38.5 C. [facility] ibuprofen 100 mg/5 mL oral suspension 10-25 00:00: 00 Yes [id number] 605mg Take 30.25 mL by mouth every 6 (six) hours as needed for Pain (scale 4-6) or Temp > 38.5 C. [facility] ibuprofen 100 mg/5 mL oral suspension 10-25 00:00: 00 Yes [id number] 605mg Take 30.25 mL by mouth every 6 (six) hours as needed for Pain (scale 4-6) or Temp > 38.5 C. [facility] ibuprofen 100 mg/5 mL oral suspension 10-25 00:00: 00 Yes [id number] 605mg Take 30.25 mL by mouth every 6 (six) hours as needed for Pain (scale 4-6) or Temp > 38.5 C. [facility] ibuprofen 100 mg/5 mL oral suspension 10-25 00:00: 00 Yes [id number] 605mg Take 30.25 mL by mouth every 6 (six) hours as needed for Pain (scale 4-6) or Temp > 38.5 C. [facility] ibuprofen 100 mg/5 mL oral suspension 10-25 00:00: 00 Yes [id number] 605mg Take 30.25 mL by mouth every 6 (six) hours as needed for Pain (scale 4-6) or Temp > 38.5 C. [facility] ibuprofen 100 mg/5 mL oral suspension 10-25 00:00: 00 Yes [id number] 605mg Take 30.25 mL by mouth every 6 (six) hours as needed for Pain (scale 4-6) or Temp > 38.5 C. [facility] ibuprofen 100 mg/5 mL oral suspension 10-25 00:00: 00 Yes [id number] 605mg Take 30.25 mL by mouth every 6 (six) hours as needed for Pain (scale 4-6) or Temp > 38.5 C. [facility] ibuprofen 100 mg/5 mL oral suspension 10-25 00:00: 00 Yes [id number] 605mg Take 30.25 mL by mouth every 6 (six) hours as needed for Pain (scale 4-6) or Temp > 38.5 C. [facility] ibuprofen 100 mg/5 mL oral suspension 10-25 00:00: 00 Yes [id number] 605mg Take 30.25 mL by mouth every 6 (six) hours as needed for Pain (scale 4-6) or Temp > 38.5 C. [facility] ibuprofen 100 mg/5 mL oral suspension 10-25 00:00: 00 Yes [id number] 605mg Take 30.25 mL by mouth every 6 (six) hours as needed for Pain (scale 4-6) or Temp > 38.5 C. [facility] ibuprofen 100 mg/5 mL oral suspension 10-25 00:00: 00 02-27 00:00 :00 No [id number] 605mg Take 30.25 mL by mouth every 6 (six) hours as needed for Pain (scale 4-6) or Temp > 38.5 C. [facility] ibuprofen 100 mg/5 mL oral suspension 10-25 00:00: 00 02-27 00:00 :00 No [id number] 605mg Take 30.25 mL by mouth every 6 (six) hours as needed for Pain (scale 4-6) or Temp > 38.5 C. [facility] ibuprofen 100 mg/5 mL oral suspension 10-25 00:00: 00 02-27 00:00 :00 No [id number] 605mg Take 30.25 mL by mouth every 6 (six) hours as needed for Pain (scale 4-6) or Temp > 38.5 C. [facility] ibuprofen 100 mg/5 mL oral suspension 10-25 00:00: 00 02-27 00:00 :00 No [id number] 605mg Take 30.25 mL by mouth every 6 (six) hours as needed for Pain (scale 4-6) or Temp > 38.5 C. [facility] ibuprofen 100 mg/5 mL oral suspension 10-25 00:00: 00 02-27 00:00 :00 No [id number] 605mg Take 30.25 mL by mouth every 6 (six) hours as needed for Pain (scale 4-6) or Temp > 38.5 C. [facility] [place] [facility] acetaminoph en 160 mg/5 mL liquid 2-0 6-15 00:00: 00 12-12 00:00 :00 No [id number] 608mg Take 19 mL by mouth every 6 (six) hours as needed for Fever. [facility] acetaminoph en 160 mg/5 mL liquid 2-0 6-15 00:00: 00 12-12 00:00 :00 No [id number] 608mg Take 19 mL by mouth every 6 (six) hours as needed for Fever. [facility] DULoxetine 60 mg capsule 2-0 -27 00:00: 00 Yes [facility] DULoxetine 60 mg capsule 2-0 27 00:00: 00 Yes [facility] DULoxetine 60 mg capsule 2-0 27 00:00: 00 Yes [facility] DULoxetine 60 mg capsule 2-0 27 00:00: 00 Yes [facility] DULoxetine 60 mg capsule 2-0 -27 00:00: 00 Yes [facility] DULoxetine 60 mg capsule 2-0 -27 00:00: 00 Yes [facility] DULoxetine 60 mg capsule 2-0 27 00:00: 00 Yes [facility] DULoxetine 60 mg capsule 2-0 27 00:00: 00 Yes [facility] DULoxetine 60 mg capsule 2-0 27 00:00: 00 Yes [facility] DULoxetine 60 mg capsule 2-0 27 00:00: 00 Yes [facility] DULoxetine 60 mg capsule 2-0 -27 00:00: 00 Yes [facility] DULoxetine 60 mg capsule 2-0 -27 00:00: 00 02-27 00:00 :00 No [facility] DULoxetine 60 mg capsule 2-0 5-27 00:00: 00 02-27 00:00 :00 No [facility] DULoxetine 60 mg capsule 2-0 27 00:00: 00 02-27 00:00 :00 No [facility] DULoxetine 60 mg capsule 10-06 00:00: 00 02-27 00:00 :00 No [facility] traZODone 50 mg tablet 10-06 00:00: 00 12-12 00:00 :00 No [facility] mometasone 50 mcg/actuati on nasal spray 09-28 00:00: 00 Yes [id number] 1{spray } Use 1 [place] in each nostril 2 (two) times daily. [facility] mometasone 50 mcg/actuati on nasal spray 0 09-28 00:00: 00 Yes [id number] 1{spray } Use 1 [place] in each nostril 2 (two) times daily. [facility] mometasone 50 mcg/actuati on nasal spray 0 09-28 00:00: 00 Yes [id number] 1{spray } Use 1 [place] in each nostril 2 (two) times daily. [facility] mometasone 50 mcg/actuati on nasal spray 2021-0 09-28 00:00: 00 Yes [id number] 1{spray } Use 1 [place] in each nostril 2 (two) times daily. [facility] mometasone 50 mcg/actuati on nasal spray 0 09-28 00:00: 00 Yes [id number] 1{spray } Use 1 [place] in each nostril 2 (two) times daily. [facility] mometasone 50 mcg/actuati on nasal spray 2021-0 19 00:00: 00 Yes [id number] 1{spray } Use 1 [place] in each nostril 2 (two) times daily. [facility] mometasone 50 mcg/actuati on nasal spray 2021-0 19 00:00: 00 Yes [id number] 1{spray } Use 1 [place] in each nostril 2 (two) times daily. [facility] mometasone 50 mcg/actuati on nasal spray 2021-0 19 00:00: 00 Yes [id number] 1{spray } Use 1 [place] in each nostril 2 (two) times daily. [facility] mometasone 50 mcg/actuati on nasal spray 2021-0 5-19 00:00: 00 Yes [id number] 1{spray } Use 1 [place] in each nostril 2 (two) times daily. [facility] mometasone 50 mcg/actuati on nasal spray 2021-0 5-19 00:00: 00 Yes [id number] 1{spray } Use 1 [place] in each nostril 2 (two) times daily. [facility] mometasone 50 mcg/actuati on nasal spray 2021-0 5-19 00:00: 00 Yes [id number] 1{spray } Use 1 [place] in each nostril 2 (two) times daily. [facility] mometasone 50 mcg/actuati on nasal spray 2021-0 5-19 00:00: 00 02-27 00:00 :00 No [id number] 1{spray } Use 1 [place] in each nostril 2 (two) times daily. [facility] mometasone 50 mcg/actuati on nasal spray 2021-0 5-19 00:00: 00 02-27 00:00 :00 No [id number] 1{spray } Use 1 [place] in each nostril 2 (two) times daily. [facility] mometasone 50 mcg/actuati on nasal spray 2021-0 5-19 00:00: 00 02-27 00:00 :00 No [id number] 1{spray } Use 1 [place] in each nostril 2 (two) times daily. [facility] mometasone 50 mcg/actuati on nasal spray 2021-0 5-19 00:00: 00 02-27 00:00 :00 No [id number] 1{spray } Use 1 [place] in each nostril 2 (two) times daily. [facility] mometasone 50 mcg/actuati on nasal spray 2021-0 5-19 00:00: 00 02-27 00:00 :00 No [id number] 1{spray } Use 1 [place] in each nostril 2 (two) times daily. [facility] cetirizine (ZYRTEC) 10 mg tablet 2-0 5-16 00:00: 00 Yes [id number] 10mg Take 1 tablet by mouth daily. [facility] cetirizine (ZYRTEC) 10 mg tablet 2-0 5-16 00:00: 00 Yes [id number] 10mg Take 1 tablet by mouth daily. [facility] cetirizine (ZYRTEC) 10 mg tablet 2-0 5-16 00:00: 00 Yes [id number] 10mg Take 1 tablet by mouth daily. [facility] cetirizine (ZYRTEC) 10 mg tablet 2021-0 5-16 00:00: 00 Yes [id number] 10mg Take 1 tablet by mouth daily. [facility] cetirizine (ZYRTEC) 10 mg tablet 2-0 5-16 00:00: 00 Yes [id number] 10mg Take 1 tablet by mouth daily. [facility] cetirizine (ZYRTEC) 10 mg tablet 2-0 5-16 00:00: 00 Yes [id number] 10mg Take 1 tablet by mouth daily. [facility] cetirizine (ZYRTEC) 10 mg tablet 2021-0 5-16 00:00: 00 Yes [id number] 10mg Take 1 tablet by mouth daily. [facility] cetirizine (ZYRTEC) 10 mg tablet 2-0 5-16 00:00: 00 Yes [id number] 10mg Take 1 tablet by mouth daily. [facility] cetirizine (ZYRTEC) 10 mg tablet 2-0 5-16 00:00: 00 Yes [id number] 10mg Take 1 tablet by mouth daily. [facility] cetirizine (ZYRTEC) 10 mg tablet 2-0 5-16 00:00: 00 Yes [id number] 10mg Take 1 tablet by mouth daily. [facility] cetirizine (ZYRTEC) 10 mg tablet 2-0 5-16 00:00: 00 Yes [id number] 10mg Take 1 tablet by mouth daily. [facility] 10 mg tablet 2021-0 5-16 00:00: 00 02-27 00:00 :00 No [id number] 10mg Take 1 tablet by mouth daily. [facility] cetirizine (ZYRTEC) 10 mg tablet 2021-0 5-16 00:00: 00 02-27 00:00 :00 No [id number] 10mg Take 1 tablet by mouth daily. [facility] cetirizine (ZYRTEC) 10 mg tablet 2021-0 5-16 00:00: 00 02-27 00:00 :00 No [id number] 10mg Take 1 tablet by mouth daily. [facility] cetirizine (ZYRTEC) 10 mg tablet 2021-0 5-16 00:00: 00 02-27 00:00 :00 No [id number] 10mg Take 1 tablet by mouth daily. [facility] cetirizine (ZYRTEC) 10 mg tablet 2021-0 -16 00:00: 00 02-27 00:00 :00 No [id number] 10mg Take 1 tablet by mouth daily. [facility] 2021-0 09 00:00: [address] [facility] gabapentin 300 mg capsule 2021-0 09-18 00:00: [address] [facility] ondansetron 4 mg tablet 2021-0 09-18 00:00: [address] [facility] DULoxetine 30 mg capsule 2021-0 -09 00:00: [address] [facility] gabapentin 300 mg capsule 2-0 09-18 00:00: 00 Yes [facility] ondansetron 4 mg tablet 2021-0 - 00:00: [address] [facility] DULoxetine 30 mg capsule 2-0 - 00:00: [address] [facility] gabapentin 300 mg capsule 2-0 - 00:00: [address] [facility] ondansetron 4 mg tablet 2021-0 -09 00:00: 00 Yes [facility] DULoxetine 30 mg capsule 2-0 09-18 00:00: 00 Yes [facility] gabapentin 300 mg capsule 2-0 09-18 00:00: 00 Yes [facility] ondansetron 4 mg tablet 2-0 09-18 00:00: 00 Yes [facility] DULoxetine 30 mg capsule 2-0 09-18 00:00: 00 Yes [facility] gabapentin 300 mg capsule 2-0 09-18 00:00: 00 Yes [facility] ondansetron 4 mg tablet 2-0 09-18 00:00: 00 Yes [facility] DULoxetine 30 mg capsule 2-0 09-18 00:00: 00 Yes [facility] gabapentin 300 mg capsule 2-0 09-18 00:00: 00 Yes [facility] ondansetron 4 mg tablet 2-0 09-18 00:00: 00 Yes [facility] DULoxetine 30 mg capsule 2-0 09-18 00:00: 00 Yes [facility] gabapentin 300 mg capsule 2-0 09-18 00:00: 00 Yes [facility] ondansetron 4 mg tablet 2-0 09-18 00:00: 00 Yes [facility] DULoxetine 30 mg capsule 2-0 09-18 00:00: 00 Yes [facility] gabapentin 300 mg capsule 2-0 09-18 00:00: 00 Yes [facility] ondansetron 4 mg tablet 2-0 09-18 00:00: 00 Yes [facility] DULoxetine 30 mg capsule 2-0 09-18 00:00: 00 Yes [facility] gabapentin 300 mg capsule 2-0 09-18 00:00: 00 Yes [facility] ondansetron 4 mg tablet 2-0 09-18 00:00: 00 Yes [facility] DULoxetine 30 mg capsule 2-0 09-18 00:00: 00 Yes [facility] gabapentin 300 mg capsule 2-0 - 00:00: 00 Yes [facility] ondansetron 4 mg tablet 2-0 - 00:00: 00 Yes [facility] DULoxetine 30 mg capsule 2-0 - 00:00: 00 Yes [facility] gabapentin 300 mg capsule 2-0 09-18 00:00: 00 Yes [facility] ondansetron 4 mg tablet 2021-0 - 00:00: 00 Yes [facility] DULoxetine 30 mg capsule 2-0 09-18 00:00: 00 02-27 00:00 :00 No [facility] gabapentin 300 mg capsule 2021-0 09-18 00:00: 00 02-27 00:00 :00 No [facility] ondansetron 4 mg tablet 2021-0 09-18 00:00: 00 02-27 00:00 :00 No [facility] DULoxetine 30 mg capsule 2021-0 09-18 00:00: 00 02-27 00:00 :00 No [facility] gabapentin 300 mg capsule 2021-0 09-18 00:00: 00 02-27 00:00 :00 No [facility] ondansetron 4 mg tablet 2021-0 09-18 00:00: 00 02-27 00:00 :00 No [facility] DULoxetine 30 mg capsule 2021-0 09-18 00:00: 00 02-27 00:00 :00 No [facility] gabapentin 300 mg capsule 2021-0 09-18 00:00: 00 02-27 00:00 :00 No [facility] ondansetron 4 mg tablet 2021-0 09-18 00:00: 00 02-27 00:00 :00 No [facility] DULoxetine 30 mg capsule 2-0 - 00:00: 00 02-27 00:00 :00 No [facility] gabapentin 300 mg capsule 2021-0 00:00: 00 02-27 00:00 :00 No [facility] ondansetron 4 mg tablet 09-18 00:00: 00 02-27 00:00 :00 No [facility] DULoxetine 30 mg capsule 09-18 00:00: 00 02-27 00:00 :00 No [facility] gabapentin 300 mg capsule 09-18 00:00: 00 02-27 00:00 :00 No [facility] ondansetron 4 mg tablet 09-18 00:00: 00 02-27 00:00 :00 No [facility] amLODIPine 5 mg tablet 09-01 00:00: 00 Yes [facility] amLODIPine 5 mg tablet 0 09-01 00:00: 00 Yes 5mg Take 5 mg by mouth. [facility] amLODIPine 5 mg tablet 0 09-01 00:00: 00 Yes [facility] amLODIPine 5 mg tablet 0 09-01 00:00: 00 Yes 5mg Take 5 mg by mouth. [facility] amLODIPine 5 mg tablet 0 09-01 00:00: 00 Yes [facility] amLODIPine 5 mg tablet 0 09-01 00:00: 00 Yes 5mg Take 5 mg by mouth. [facility] amLODIPine 5 mg tablet 0 09-01 00:00: 00 Yes [facility] amLODIPine 5 mg tablet 0 09-01 00:00: 00 Yes 5mg Take 5 mg by mouth. [facility] amLODIPine 5 mg tablet 0 09-01 00:00: 00 Yes [facility] amLODIPine 5 mg tablet 0 09-01 00:00: 00 Yes 5mg Take 5 mg by mouth. [facility] amLODIPine 5 mg tablet 0 09-01 00:00: 00 Yes [facility] amLODIPine 5 mg tablet 0 09-01 00:00: 00 Yes 5mg Take 5 mg by mouth. [facility] amLODIPine 5 mg tablet 0 09-01 00:00: 00 Yes [facility] amLODIPine 5 mg tablet 0 09-01 00:00: 00 Yes 5mg Take 5 mg by mouth. [facility] amLODIPine 5 mg tablet 0 09-01 00:00: 00 Yes [facility] amLODIPine 5 mg tablet 0 09-01 00:00: 00 Yes 5mg Take 5 mg by mouth. [facility] amLODIPine 5 mg tablet 0 09-01 00:00: 00 Yes [facility] amLODIPine 5 mg tablet 0 09-01 00:00: 00 Yes 5mg Take 5 mg by mouth. [facility] amLODIPine 5 mg tablet 0 09-01 00:00: 00 Yes [facility] amLODIPine 5 mg tablet 0 09-01 00:00: 00 Yes 5mg Take 5 mg by mouth. [facility] amLODIPine 5 mg tablet 0 09-01 00:00: 00 Yes [facility] amLODIPine 5 mg tablet 0 09-01 00:00: 00 Yes 5mg Take 5 mg by mouth. [facility] amLODIPine 5 mg tablet 0 09-01 00:00: 00 02-27 00:00 :00 No [facility] amLODIPine 5 mg tablet 0 09-01 00:00: 00 02-27 00:00 :00 No 5mg Take 5 mg by mouth. [facility] amLODIPine 5 mg tablet 0 09-01 00:00: 00 02-27 00:00 :00 No [facility] amLODIPine 5 mg tablet 0 09-01 00:00: 00 02-27 00:00 :00 No 5mg Take 5 mg by mouth. [facility] amLODIPine 5 mg tablet 2021-0 09-01 00:00: 00 02-27 00:00 :00 No [facility] amLODIPine 5 mg tablet 2021-0 422 00:00: 00 02-27 00:00 :00 No 5mg Take 5 mg by mouth. [facility] amLODIPine 5 mg tablet 2021-0 422 00:00: 00 02-27 00:00 :00 No [facility] amLODIPine 5 mg tablet 0 09-01 00:00: 00 02-27 00:00 :00 No 5mg Take 5 mg by mouth. [facility] amLODIPine 5 mg tablet 0 09-01 00:00: 00 02-27 00:00 :00 No [facility] amLODIPine 5 mg tablet 0 09-01 00:00: 00 02-27 00:00 :00 No 5mg Take 5 mg by mouth. [facility] buPROPion XL 150 mg 24 hr tablet 2021-0 20 00:00: 00 Yes [facility] buPROPion XL 150 mg 24 hr tablet 2021-0 4-20 00:00: 00 Yes [facility] buPROPion XL 150 mg 24 hr tablet 2021-0 4-20 00:00: 00 Yes [facility] buPROPion XL 150 mg 24 hr tablet 2021-0 4-20 00:00: 00 Yes [facility] buPROPion XL 150 mg 24 hr tablet 2021-0 4-20 00:00: 00 Yes [facility] buPROPion XL 150 mg 24 hr tablet 2021-0 4-20 00:00: 00 Yes [facility] buPROPion XL 150 mg 24 hr tablet 2021-0 4-20 00:00: 00 Yes [facility] buPROPion XL 150 mg 24 hr tablet 2021-0 4-20 00:00: 00 Yes [facility] buPROPion XL 150 mg 24 hr tablet 2-0 4-20 00:00: 00 Yes [facility] buPROPion XL 150 mg 24 hr tablet 2021-0 4-20 00:00: 00 Yes [facility] buPROPion XL 150 mg 24 hr tablet 2-0 4-20 00:00: 00 Yes [facility] buPROPion XL 150 mg 24 hr tablet 2021-0 4-20 00:00: 00 08-31 04:59 :00 No 150mg Take 150 mg by mouth. [facility] buPROPion XL 150 mg 24 hr tablet 2021-0 4-20 00:00: 00 08-31 04:59 :00 No 150mg Take 150 mg by mouth. [facility] buPROPion XL 150 mg 24 hr tablet 2021-0 4-20 00:00: 00 08-31 04:59 :00 No 150mg Take 150 mg by mouth. [facility] buPROPion XL 150 mg 24 hr tablet 2021-0 4-20 00:00: 00 08-31 04:59 :00 No 150mg Take 150 mg by mouth. [facility] buPROPion XL 150 mg 24 hr tablet 2021-0 4-20 00:00: 00 08-31 04:59 :00 No 150mg Take 150 mg by mouth. [facility] buPROPion XL 150 mg 24 hr tablet 2021-0 4-20 00:00: 00 08-31 04:59 :00 No 150mg Take 150 mg by mouth. [facility] buPROPion XL 150 mg 24 hr tablet 2021-0 4-20 00:00: 00 08-31 04:59 :00 No 150mg Take 150 mg by mouth. [facility] buPROPion XL 150 mg 24 hr tablet 2021-0 4-20 00:00: 00 08-31 04:59 :00 No 150mg Take 150 mg by mouth. [facility] buPROPion XL 150 mg 24 hr tablet 2021-0 4-20 00:00: 00 08-31 04:59 :00 No 150mg Take 150 mg by mouth. [facility] buPROPion XL 150 mg 24 hr tablet 2021-0 4-20 00:00: 00 08-31 04:59 :00 No 150mg Take 150 mg by mouth. [facility] [place] [facility] buPROPion XL 150 mg 24 hr tablet 2021-0 4-20 00:00: 00 08-31 04:59 :00 No 150mg Take 150 mg by mouth. [facility] buPROPion XL 150 mg 24 hr tablet 2021-0 4-20 00:00: 00 02-27 00:00 :00 No [facility] buPROPion XL 150 mg 24 hr tablet 0 4-20 00:00: 00 02-27 00:00 :00 No 150mg Take 150 mg by mouth. [facility] buPROPion XL 150 mg 24 hr tablet 2021-0 4-20 00:00: 00 02-27 00:00 :[address] [facility] buPROPion XL 150 mg 24 hr tablet 0 4-20 00:00: 00 02-27 00:00 :00 No 150mg Take 150 mg by mouth. [facility] buPROPion XL 150 mg 24 hr tablet 0 4-20 00:00: 00 02-27 00:00 :00 No [facility] buPROPion XL 150 mg 24 hr tablet 0 4-20 00:00: 00 02-27 00:00 :00 No 150mg Take 150 mg by mouth. [facility] buPROPion XL 150 mg 24 hr tablet 0 4-20 00:00: 00 02-27 00:00 :00 No [facility] buPROPion XL 150 mg 24 hr tablet 0 4-20 00:00: 00 02-27 00:00 :00 No 150mg Take 150 mg by mouth. [facility] buPROPion XL 150 mg 24 hr tablet 2021-0 4-20 00:00: 00 02-27 00:00 :00 No [facility] buPROPion XL 150 mg 24 hr tablet 0 4-20 00:00: 00 02-27 00:00 :00 No 150mg Take 150 mg by mouth. [facility] proMETHazin e 25 mg tablet 0 4-05 00:00: 00 09-12 00:00 :00 No [id number] 25mg Take 1 tablet by mouth every 6 (six) hours as needed for Nausea and Vomiting (N/V). [facility] traMADoL 50 mg tablet 0 4-05 00:00: 00 09-12 00:00 :00 No [id number] 50mg Take 1 tablet by mouth every 6 (six) hours as needed (pain). Indication s: acute pain [facility] proMETHazin e 25 mg tablet 4-05 00:00: 00 09-12 00:00 :00 No [id number] 25mg Take 1 tablet by mouth every 6 (six) hours as needed for Nausea and Vomiting (N/V). [facility] traMADoL 50 mg tablet 05 00:00: 00 09-12 00:00 :00 No [id number] 50mg Take 1 tablet by mouth every 6 (six) hours as needed (pain). Indication s: acute pain [facility] proMETHazin e 25 mg tablet 4-05 00:00: 00 09-12 00:00 :00 No [id number] 25mg Take 1 tablet by mouth every 6 (six) hours as needed for Nausea and Vomiting (N/V). [facility] traMADoL 50 mg tablet 405 00:00: 00 09-12 00:00 :00 No [id number] 50mg Take 1 tablet by mouth every 6 (six) hours as needed (pain). Indication s: acute pain [facility] cyclobenzap rine 10 mg tablet -28 00:00: 00 08-22 04:59 :00 No [id number] 10mg Take 1 tablet by mouth 3 (three) times daily for 14 days. [facility] ibuprofen 800 mg tablet 3-28 00:00: 00 08-22 04:59 :00 No [id number] 800mg Take 1 tablet by mouth every 6 (six) hours as needed for Pain (scale 1-3) for up to 14 days. [facility] diclofenac 75 mg EC tablet 3 00:00: 00 09-12 00:00 :00 No [facility] orphenadrin e 100 mg SR tablet 08-01 00:00: 00 09-12 00:00 :[address] [facility] dicl[facility] 75 mg EC tablet 08-01 00:00: 09-12 00:00 :00 No [facility] orphenadrin e 100 mg SR tablet 08-01 00:00: 00 09-12 00:00 :00 No [facility] divalproex 125 mg EC tablet 3 00:00: 00 09-12 00:00 :00 No [id number] 125mg Take 1 tablet by mouth every 12 (twelve) hours. [facility] divalproex Sprinkles 125 mg SPRINKLE capsule 3- 00:00: 00 09-12 00:00 :00 No [facility] divalproex 125 mg EC tablet 3- 00:00: 00 09-12 00:00 :00 No [id number] 125mg Take 1 tablet by mouth every 12 (twelve) hours. [facility] divalproex Sprinkles 125 mg SPRINKLE capsule 3- 00:00: 09-12 00:00 :00 No [facility] divalproex 125 mg EC tablet 0 3-11 00:00: 00 09-12 00:00 :00 No [id number] 125mg Take 1 tablet by mouth every 12 (twelve) hours. [facility] ibuprofen 600 mg tablet 3-07 00:00: 00 08-01 04:59 :00 No [id number] 600mg Take 1 tablet by mouth every 6 (six) hours as needed for Temp > 38.5 C for up to 14 days. [facility] acetaminoph en-codeine 300-30 mg tablet 06-11 00:00: 00 09-12 00:00 :00 No TAKE 1 TABLET BY MOUTH EVERY 4 HOURS NEEDED FOR PAIN FOR 2 DAYS [facility] acetaminoph en-codeine 300-30 mg tablet 06-11 00:00: 00 09-12 00:00 :00 No TAKE 1 TABLET BY MOUTH EVERY 4 HOURS NEEDED FOR PAIN FOR 2 DAYS [facility] acetaminoph en-codeine 300-30 mg tablet 06-11 00:00: 00 09-12 00:00 :00 No TAKE 1 TABLET BY MOUTH EVERY 4 HOURS NEEDED FOR PAIN FOR 2 DAYS [facility] fluticasone propionate 110 mcg/actuati on inhaler 05-31 00:00: 00 09-28 00:00 :00 No [id number] 2{puff} Inhale 2 Puffs every 12 (twelve) hours. [facility] fluticasone propionate 110 mcg/actuati on inhaler 05-31 00:00: 00 09-28 00:00 :00 No [id number] 2{puff} Inhale 2 Puffs every 12 (twelve) hours. [facility] fluticasone propionate 110 mcg/actuati on inhaler 05-31 00:00: 00 09-28 00:00 :00 No [id number] 2{puff} Inhale 2 Puffs every 12 (twelve) hours. [facility] fluticasone propionate 110 mcg/actuati on inhaler 05-31 00:00: 00 09-28 00:00 :00 No [id number] 2{puff} Inhale 2 Puffs every 12 (twelve) hours. [facility] benzonatate (TESSALON PERLES) 100 mg capsule 05-25 00:00: 00 09-25 00:00 :00 No [id number] 100mg Take 1 capsule by mouth every 8 (eight) hours as needed for Cough. [facility] benzonatate (TESSALON PERLES) 100 mg capsule 05-25 00:00: 00 09-25 00:00 :00 No [id number] 100mg Take 1 capsule by mouth every 8 (eight) hours as needed for Cough. [facility] benzonatate (TESSALON PERLES) 100 mg capsule 0 05-25 00:00: 00 09-25 00:00 :00 No [id number] 100mg Take 1 capsule by mouth every 8 (eight) hours as needed for Cough. [facility] benzonatate (TESSALON PERLES) 100 mg capsule 05-25 00:00: 00 09-25 00:00 :00 No [id number] 100mg Take 1 capsule by mouth every 8 (eight) hours as needed for Cough. [facility] carvediloL 25 mg tablet 2020-05 00:00: 00 Yes 25mg Take 1 tablet by mouth 2 (two) times daily with meals. [facility] losartan 50 mg tablet 2020-05 00:00: 00 Yes 50mg Take 1 tablet by mouth 2 (two) times daily. [facility] carvediloL 25 mg tablet 2020-05 00:00: 00 Yes 25mg Take 1 tablet by mouth 2 (two) times daily with meals. [facility] losartan 50 mg tablet 2020-05 00:00: 00 Yes 50mg Take 1 tablet by mouth 2 (two) times daily. [facility] carvediloL 25 mg tablet 2020-05 00:00: 00 Yes 25mg Take 1 tablet by mouth 2 (two) times daily with meals. [facility] losartan 50 mg tablet 2020-05 00:00: 00 Yes 50mg Take 1 tablet by mouth 2 (two) times daily. [facility] carvediloL 25 mg tablet 2020-05 00:00: 00 Yes 25mg Take 1 tablet by mouth 2 (two) times daily with meals. [facility] losartan 50 mg tablet 2020-05 00:00: 00 Yes 50mg Take 1 tablet by mouth 2 (two) times daily. [facility] carvediloL 25 mg tablet 2020-05 00:00: 00 Yes 25mg Take 1 tablet by mouth 2 (two) times daily with meals. [facility] losartan 50 mg tablet 2020-05 00:00: 00 Yes 50mg Take 1 tablet by mouth 2 (two) times daily. [facility] carvediloL 25 mg tablet 2020-05 00:00: 00 Yes 25mg Take 1 tablet by mouth 2 (two) times daily with meals. [facility] losartan 50 mg tablet 2020-05 00:00: 00 Yes 50mg Take 1 tablet by mouth 2 (two) times daily. [facility] carvediloL 25 mg tablet 2020-05 00:00: 00 Yes 25mg Take 1 tablet by mouth 2 (two) times daily with meals. [facility] losartan 50 mg tablet 2020-05 00:00: 00 Yes 50mg Take 1 tablet by mouth 2 (two) times daily. [facility] carvediloL 25 mg tablet 2020-05 00:00: 00 Yes 25mg Take 1 tablet by mouth 2 (two) times daily with meals. [facility] losartan 50 mg tablet 2020-05 00:00: 00 Yes 50mg Take 1 tablet by mouth 2 (two) times daily. [facility] carvediloL 25 mg tablet 2020-05 00:00: 00 Yes 25mg Take 1 tablet by mouth 2 (two) times daily with meals. [facility] losartan 50 mg tablet 2020-05 00:00: 00 Yes 50mg Take 1 tablet by mouth 2 (two) times daily. [facility] carvediloL 25 mg tablet 2020-05 00:00: 00 Yes 25mg Take 1 tablet by mouth 2 (two) times daily with meals. [facility] losartan 50 mg tablet 2020-05 00:00: 00 Yes 50mg Take 1 tablet by mouth 2 (two) times daily. [facility] carvediloL 25 mg tablet 2020-05 2 00:00: 00 Yes 25mg Take 1 tablet by mouth 2 (two) times daily with meals. [facility] losartan 50 mg tablet 2020-05 00:00: 00 Yes 50mg Take 1 tablet by mouth 2 (two) times daily. [facility] carvediloL 25 mg tablet 2020-05 2 00:00: 00 02-27 00:00 :00 No 25mg Take 1 tablet by mouth 2 (two) times daily with meals. [facility] losartan 50 mg tablet 2020-05 00:00: 00 02-27 00:00 :00 No 50mg Take 1 tablet by mouth 2 (two) times daily. [facility] carvediloL 25 mg tablet 2020-05 00:00: 00 02-27 00:00 :00 No 25mg Take 1 tablet by mouth 2 (two) times daily with meals. [facility] losartan 50 mg tablet 2020-05 00:00: 00 02-27 00:00 :00 No 50mg Take 1 tablet by mouth 2 (two) times daily. [facility] carvediloL 25 mg tablet 2020-05 00:00: 00 02-27 00:00 :00 No 25mg Take 1 tablet by mouth 2 (two) times daily with meals. [facility] losartan 50 mg tablet 2020-05 00:00: 00 02-27 00:00 :00 No 50mg Take 1 tablet by mouth 2 (two) times daily. [facility] carvediloL 25 mg tablet 2020-05 00:00: 00 02-27 00:00 :00 No 25mg Take 1 tablet by mouth 2 (two) times daily with meals. [facility] losartan 50 mg tablet 2020-05 00:00: 00 02-27 00:00 :00 No 50mg Take 1 tablet by mouth 2 (two) times daily. [facility] carvediloL 25 mg tablet 2020-05 00:00: 00 02-27 00:00 :00 No 25mg Take 1 tablet by mouth 2 (two) times daily with meals. [facility] losartan 50 mg tablet 2020-05 2 00:00: 00 02-27 00:00 :00 No 50mg Take 1 tablet by mouth 2 (two) times daily. [facility] carvediloL 25 mg tablet 2020-05 2 00:00: 00 02-27 00:00 :00 No 25mg Take 1 tablet by mouth 2 (two) times daily with meals. [facility] losartan 50 mg tablet 2020-05 00:00: 00 02-27 00:00 :00 No 50mg Take 1 tablet by mouth 2 (two) times daily. [facility] carvediloL 25 mg tablet 2020-05 2 00:00: 00 02-27 00:00 :00 No 25mg Take 1 tablet by mouth 2 (two) times daily with meals. [facility] losartan 50 mg tablet 2020-05 2 00:00: 00 02-27 00:00 :00 No 50mg Take 1 tablet by mouth 2 (two) times daily. [facility] carvediloL 25 mg tablet 2020-05 2 00:00: 00 02-27 00:00 :00 No 25mg Take 1 tablet by mouth 2 (two) times daily with meals. [facility] losartan 50 mg tablet 2020-05 2 00:00: 00 02-27 00:00 :00 No 50mg Take 1 tablet by mouth 2 (two) times daily. [facility] carvediloL 25 mg tablet 2020-05 2 00:00: 00 02-27 00:00 :00 No 25mg Take 1 tablet by mouth 2 (two) times daily with meals. [facility] losartan 50 mg tablet 2020-05 2 00:00: 00 02-27 00:00 :00 No 50mg Take 1 tablet by mouth 2 (two) times daily. [facility] carvediloL 25 mg tablet 2020-05 00:00: 00 02-27 00:00 :00 No 25mg Take 1 tablet by mouth 2 (two) times daily with meals. [facility] losartan 50 mg tablet 2020-05 00:00: 00 02-27 00:00 :00 No 50mg Take 1 tablet by mouth 2 (two) times daily. [facility] proMETHazin e 25 mg tablet 2020-05 00:00: 00 09-12 00:00 :00 No [facility] proMETHazin e 25 mg tablet 2020-05 00:00: 00 09-12 00:00 :00 No [facility] proMETHazin e 25 mg tablet 2020-05 00:00: 00 09-12 00:00 :00 No [facility] methocarbam oL (ROBAXIN) 500 mg tablet 2020-05 00:00: 00 05-25 00:00 :00 No [id number] 500mg Take 1 tablet by mouth every 6 (six) hours as needed (MUSCLE SPASM). [facility] vitamin B-12 (VITAMIN B-12) 500 mcg tablet 2020-05 00:00: 00 09-12 00:00 :00 No [id number] 500ug Take 1 tablet by mouth daily. [facility] vitamin B-12 (VITAMIN B-12) 500 mcg tablet 2020-05 00:00: 00 09-12 00:00 :00 No [id number] 500ug Take 1 tablet by mouth daily. [facility] vitamin B-12 (VITAMIN B-12) 500 mcg tablet 2020-05 00:00: 00 09-12 00:00 :00 No [id number] 500ug Take 1 tablet by mouth daily. [facility] vitamin B-12 (VITAMIN B-12) 500 mcg tablet 2020-05 00:00: 00 09-12 00:00 :00 No [id number] 500ug Take 1 tablet by mouth daily. [facility] vitamin B-12 (VITAMIN B-12) 500 mcg tablet 2020-05 00:00: 00 09-12 00:00 :00 No [id number] 500ug Take 1 tablet by mouth daily. [facility] vitamin B-12 (VITAMIN B-12) 500 mcg tablet 2020-05 00:00: 00 09-12 00:00 :00 No [id number] 500ug Take 1 tablet by mouth daily. [facility] vitamin B-12 (VITAMIN B-12) 500 mcg tablet 2020-05 00:00: 00 09-12 00:00 :00 No [id number] 500ug Take 1 tablet by mouth daily. [facility] methylPREDN ISolone 4 mg tablets 2020-05 00:00: 00 05-25 00:00 :00 No [id number] Follow package directions [facility] methylPREDN ISolone 4 mg tablets 2020-05 00:00: 00 05-25 00:00 :00 No [id number] Follow package directions [facility] methylPREDN ISolone 4 mg tablets 2020-05 00:00: 00 05-25 00:00 :00 No [id number] Follow package directions [facility] fluticasone propion-chel meteroL 115-21 mcg/actuati on inhaler 02-09 00:00: 00 05-25 00:00 :00 No [id number] 2{puff} Inhale 2 Puffs 2 (two) times daily. Rinse mouth after each use. [facility] albuterol 2.5 mg /3 mL (0.083 %) nebulizer solution 02-09 00:00: 00 05-25 00:00 :00 No [id number] 2.5mg Inhale 3 mL every 6 (six) hours as needed for Wheezing or Shortness of Breath. [facility] fluticasone propion-chel meteroL 115-21 mcg/actuati on inhaler 02-09 00:00: 00 05-25 00:00 :00 No [id number] 2{puff} Inhale 2 Puffs 2 (two) times daily. Rinse mouth after each use. [facility] albuterol 2.5 mg /3 mL (0.083 %) nebulizer solution 02-09 00:00: 00 05-25 00:00 :00 No [id number] 2.5mg Inhale 3 mL every 6 (six) hours as needed for Wheezing or Shortness of Breath. [facility] flut[facility] propion-chel meteroL 115-21 mcg/actuati on inhaler 02-09 00:00: 00 05-25 00:00 :00 No [id number] 2{puff} Inhale 2 Puffs 2 (two) times daily. Rinse mouth after each use. [facility] albuterol 2.5 mg /3 mL (0.083 %) nebulizer solution 02-09 00:00: 00 05-25 00:00 :00 No [id number] 2.5mg Inhale 3 mL every 6 (six) hours as needed for Wheezing or Shortness of Breath. [facility] fluticasone propion-chel meteroL 115-21 mcg/actuati on inhaler 02-09 00:00: 00 05-25 00:00 :00 No [id number] 2{puff} Inhale 2 Puffs 2 (two) times daily. Rinse mouth after each use. [facility] albuterol 2.5 mg /3 mL (0.083 %) nebulizer solution 02-09 00:00: 00 05-25 00:00 :00 No [id number] 2.5mg Inhale 3 mL every 6 (six) hours as needed for Wheezing or Shortness of Breath. [facility] methocarbam oL (ROBAXIN) 500 mg tablet 02-09 00:00: 00 05-02 00:00 :00 No [id number] 500mg Take 1 tablet by mouth every 6 (six) hours as needed (MUSCLE SPASM). [facility] methocarbam oL (ROBAXIN) 500 mg tablet 02-09 00:00: 00 05-02 00:00 :00 No [id number] 500mg Take 1 tablet by mouth every 6 (six) hours as needed (MUSCLE SPASM). [facility] bromphenira mine-pseudo ephedrine-D M (BROMFED DM) 2-30-10 mg/5 mL syrup 01-31 00:00: 00 02-09 00:00 :00 No [id number] 5mL Take 5 mL by mouth 4 (four) times daily as needed for Cough. [facility] methylPREDN ISolone (MEDROL, ANABELA,) 4 mg tablets 01-20 00:00: 00 02-09 00:00 :00 No [id number] Take by mouth SEE-INSTRU CTIONS. follow package directions [facility] methylPREDN ISolone (MEDROL, ANABELA,) 4 mg tablets 01-20 00:00: 00 02-09 00:00 :00 No [id number] Take by mouth SEE-INSTRU CTIONS. follow package directions [facility] methylPREDN ISolone (MEDROL, ANABELA,) 4 mg tablets 01-20 00:00: 00 02-09 00:00 :00 No [id number] Take by mouth SEE-INSTRU CTIONS. follow package directions [facility] albuterol 90 mcg/actuati on inhaler 01-12 00:00: 00 05-25 00:00 :00 No [id number] 2{puff} Inhale 2 Puffs every 4 (four) hours as needed for Wheezing or Shortness of Breath. [facility] albuterol 90 mcg/actuati on inhaler 01-12 00:00: 00 05-25 00:00 :00 No [id number] 2{puff} Inhale 2 Puffs every 4 (four) hours as needed for Wheezing or Shortness of Breath. [facility] albuterol 90 mcg/actuati on inhaler 01-12 00:00: 00 05-25 00:00 :00 No [id number] 2{puff} Inhale 2 Puffs every 4 (four) hours as needed for Wheezing or Shortness of Breath. [facility] albuterol 90 mcg/actuati on inhaler 01-12 00:00: 00 05-25 00:00 :00 No [id number] 2{puff} Inhale 2 Puffs every 4 (four) hours as needed for Wheezing or Shortness of Breath. [facility] albuterol 90 mcg/actuati on inhaler 01-12 00:00: 00 05-25 00:00 :00 No [id number] 2{puff} Inhale 2 Puffs every 4 (four) hours as needed for Wheezing or Shortness of Breath. [facility] albuterol 90 mcg/actuati on inhaler 01-12 00:00: 00 05-25 00:00 :00 No [id number] 2{puff} Inhale 2 Puffs every 4 (four) hours as needed for Wheezing or Shortness of Breath. [facility] albuterol 90 mcg/actuati on inhaler 01-12 00:00: 00 05-25 00:00 :00 No [id number] 2{puff} Inhale 2 Puffs every 4 (four) hours as needed for Wheezing or Shortness of Breath. [facility] benzonatate 100 mg capsule 01-12 00:00: 00 02-19 00:00 :00 No [id number] 100mg Take 1 capsule by mouth 3 (three) times daily as needed for Cough. [facility] benzonatate 100 mg capsule 01-12 00:00: 00 02-19 00:00 :00 No [id number] 100mg Take 1 capsule by mouth 3 (three) times daily as needed for Cough. [facility] benzonatate 100 mg capsule 9-02 00:00: 00 02-19 00:00 :00 No [id number] 100mg Take 1 capsule by mouth 3 (three) times daily as needed for Cough. [facility] losartan 50 mg tablet 8-13 00:00: 00 02-09 00:00 :00 No 50mg Take 1 tablet by mouth 2 (two) times daily. [facility] mg tablet 8- 00:00: 00 02-09 00:00 :00 No 50mg Take 1 tablet by mouth 2 (two) times daily. [facility] losartan 50 mg tablet 12-23 00:00: 00 02-09 00:00 :00 No 50mg Take 1 tablet by mouth 2 (two) times daily. [facility] topiramate 25 mg tablet 11-22 00:00: 00 12-26 00:00 :00 No 25mg Take 1 tablet by mouth 2 (two) times daily. [facility] OXcarbazepi ne 150 mg tablet 12 00:00: 00 02-09 00:00 :[address] [facility] OXcarbazepi ne 150 mg tablet 7-12 00:00: 00 02-09 00:00 :00 No [facility] OXcarbazepi ne 150 mg tablet 712 00:00: 00 02-09 00:00 :00 No [facility] OXcarbazepi ne 150 mg tablet 0 -12 00:00: 00 02-09 00:00 :[address] [facility] FLUoxetine 40 mg capsule 7-12 00:00: 00 12-26 00:00 :00 No [facility] traZODone 100 mg tablet 0 7-12 00:00: 00 12-26 00:00 :00 No [facility] dicyclomine 20 mg tablet 6-10 00:00: 00 12-26 00:00 :00 No [id number] 20mg Take 1 tablet by mouth 4 (four) times daily. [facility] proMETHazin e 25 mg tablet 6-10 00:00: 00 12-26 00:00 :00 No [id number] 25mg Take 1 tablet by mouth every 6 (six) hours as needed for Nausea and Vomiting (N/V). [facility] acetaminoph en-codeine 300-30 mg tablet 6-05 00:00: 00 12-26 00:00 :00 No TAKE 2 TABLETS BY MOUTH EVERY 6 HOURS NEEDED FOR PAIN [facility] oxybutynin (DITROPAN XL) 10 mg 24 hr tablet 5-30 00:00: 00 12-26 00:00 :00 No [id number] 10mg Take 1 tablet by mouth daily. [facility] ondansetron (ZOFRAN ODT) 4 mg disintegrat ing tablet 5-30 00:00: 00 12-26 00:00 :00 No [id number] 4mg Take 1 tablet by mouth every 8 (eight) hours as needed for Nausea and Vomiting (N/V). [facility] oxybutynin (DITROPAN XL) 10 mg 24 hr tablet 5-30 00:00: 00 12-26 00:00 :00 No [id number] 10mg Take 1 tablet by mouth daily. [facility] ondansetron (ZOFRAN ODT) 4 mg disintegrat ing tablet 5-30 00:00: 00 12-26 00:00 :00 No [id number] 4mg Take 1 tablet by mouth every 8 (eight) hours as needed for Nausea and Vomiting (N/V). [facility] oxybutynin (DITROPAN XL) 10 mg 24 hr tablet 5-30 00:00: 00 12-26 00:00 :00 No [id number] 10mg Take 1 tablet by mouth daily. [facility] ondansetron (ZOFRAN ODT) 4 mg disintegrat ing tablet 10-09 00:00: 00 12-26 00:00 :00 No [id number] 4mg Take 1 tablet by mouth every 8 (eight) hours as needed for Nausea and Vomiting (N/V). [facility] oxybutynin (DITROPAN XL) 10 mg 24 hr tablet 10-09 00:00: 00 12-26 00:00 :00 No [id number] 10mg Take 1 tablet by mouth daily. [facility] ondansetron (ZOFRAN ODT) 4 mg disintegrat ing tablet 10-09 00:00: 00 12-26 00:00 :00 No [id number] 4mg Take 1 tablet by mouth every 8 (eight) hours as needed for Nausea and Vomiting (N/V). [facility] ciprofloxac in HCl 500 mg tablet 10-09 00:00: 00 11-22 00:00 :00 No [id number] 500mg Take 1 tablet by mouth 2 (two) times daily. [facility] ciprofloxac in HCl 500 mg tablet 10-09 00:00: 00 11-22 00:00 :00 No [id number] 500mg Take 1 tablet by mouth 2 (two) times daily. [facility] ciprofloxac in HCl 500 mg tablet 10-09 00:00: 00 11-22 00:00 :00 No [id number] 500mg Take 1 tablet by mouth 2 (two) times daily. [facility] predniSONE 20 mg tablet 10-04 00:00: 00 11-22 00:00 :00 No [id number] 20mg Take 1 tablet by mouth daily. Days 1-2: 3 pills (60 mg). Days 3-4: 2 pills (40 mg). Days 5-6: 1 pill (20 mg). Days 7-8: 1/2 pill (10 mg). Then stop [facility] predniSONE 20 mg tablet 2021-0 5-25 00:00: 00 11-22 00:00 :00 No [id number] 20mg Take 1 tablet by mouth daily. Days 1-2: 3 pills (60 mg). Days 3-4: 2 pills (40 mg). Days 5-6: 1 pill (20 mg). Days 7-8: 1/2 pill (10 mg). Then stop [facility] predniSONE 20 mg tablet 2020-0 10-04 00:00: 00 11-22 00:00 :00 No [id number] 20mg Take 1 tablet by mouth daily. Days 1-2: 3 pills (60 mg). Days 3-4: 2 pills (40 mg). Days 5-6: 1 pill (20 mg). Days 7-8: 1/2 pill (10 mg). Then stop [facility] predniSONE 20 mg tablet 10-04 00:00: 00 11-22 00:00 :00 No [id number] 20mg Take 1 tablet by mouth daily. Days 1-2: 3 pills (60 mg). Days 3-4: 2 pills (40 mg). Days 5-6: 1 pill (20 mg). Days 7-8: 1/2 pill (10 mg). Then stop [facility] predniSONE 20 mg tablet 2020-10-04 00:00: 00 11-22 00:00 :00 No [id number] 20mg Take 1 tablet by mouth daily. Days 1-2: 3 pills (60 mg). Days 3-4: 2 pills (40 mg). Days 5-6: 1 pill (20 mg). Days 7-8: 1/2 pill (10 mg). Then stop [facility] predniSONE 20 mg tablet 2020-0 10-04 00:00: 00 11-22 00:00 :00 No [id number] 20mg Take 1 tablet by mouth daily. Days 1-2: 3 pills (60 mg). Days 3-4: 2 pills (40 mg). Days 5-6: 1 pill (20 mg). Days 7-8: 1/2 pill (10 mg). Then stop [facility] predniSONE 20 mg tablet 2020-10-04 00:00: 00 11-22 00:00 :00 No [id number] 20mg Take 1 tablet by mouth daily. Days 1-2: 3 pills (60 mg). Days 3-4: 2 pills (40 mg). Days 5-6: 1 pill (20 mg). Days 7-8: 1/2 pill (10 mg). Then stop [facility] predniSONE 20 mg tablet 10-04 00:00: 00 11-22 00:00 :00 No [id number] 20mg Take 1 tablet by mouth daily. Days 1-2: 3 pills (60 mg). Days 3-4: 2 pills (40 mg). Days 5-6: 1 pill (20 mg). Days 7-8: 1/2 pill (10 mg). Then stop [facility] predniSONE 20 mg tablet 10-04 00:00: 00 11-22 00:00 :00 No [id number] 20mg Take 1 tablet by mouth daily. Days 1-2: 3 pills (60 mg). Days 3-4: 2 pills (40 mg). Days 5-6: 1 pill (20 mg). Days 7-8: 1/2 pill (10 mg). Then stop [facility] predniSONE 20 mg tablet 10-04 00:00: 00 11-22 00:00 :00 No [id number] 20mg Take 1 tablet by mouth daily. Days 1-2: 3 pills (60 mg). Days 3-4: 2 pills (40 mg). Days 5-6: 1 pill (20 mg). Days 7-8: 1/2 pill (10 mg). Then stop [facility] mupirocin 2 % ointment 20 00:00: 00 12-26 00:00 :00 No [id number] Apply to both nostrils at bedtime [facility] mupirocin 2 % ointment 20 00:00: 00 12-26 00:00 :00 No [id number] Apply to both nostrils at bedtime [facility] mupirocin 2 % ointment 2021-0 5-20 00:00: 00 12-26 00:00 :00 No [id number] Apply to both nostrils at bedtime [facility] mupirocin 2 % ointment 20 00:00: 00 12-26 00:00 :00 No [id number] Apply to both nostrils at bedtime [facility] mupirocin 2 % ointment 09-29 00:00: 00 12-26 00:00 :00 No [id number] Apply to both nostrils at bedtime [facility] mupirocin 2 % ointment 09-29 00:00: 00 12-26 00:00 :00 No [id number] Apply to both nostrils at bedtime [facility] mupirocin 2 % ointment 09-29 00:00: 00 12-26 00:00 :00 No [id number] Apply to both nostrils at bedtime [facility] mupirocin 2 % ointment 09-29 00:00: 00 12-26 00:00 :00 No [id number] Apply to both nostrils at bedtime [facility] mupirocin 2 % ointment 09-29 00:00: 00 12-26 00:00 :00 No [id number] Apply to both nostrils at bedtime [facility] mupirocin 2 % ointment 20 00:00: 00 12-26 00:00 :00 No [id number] Apply to both nostrils at bedtime [facility] mupirocin 2 % ointment 20 00:00: 00 12-26 00:00 :00 No [id number] Apply to both nostrils at bedtime [facility] naproxen sodium (ANAPROX DS) 550 mg tablet 09-28 00:00: 00 12-26 00:00 :00 No [id number] 550mg Take 1 tablet by mouth 2 (two) times daily with meals. [facility] naproxen sodium (ANAPROX DS) 550 mg tablet 09-28 00:00: 00 12-26 00:00 :00 No [id number] 550mg Take 1 tablet by mouth 2 (two) times daily with meals. [facility] naproxen sodium (ANAPROX DS) 550 mg tablet 09-28 00:00: 00 12-26 00:00 :00 No [id number] 550mg Take 1 tablet by mouth 2 (two) times daily with meals. [facility] naproxen sodium (ANAPROX DS) 550 mg tablet 09-28 00:00: 00 12-26 00:00 :00 No [id number] 550mg Take 1 tablet by mouth 2 (two) times daily with meals. [facility] naproxen sodium (ANAPROX DS) 550 mg tablet 09-28 00:00: 00 12-26 00:00 :00 No [id number] 550mg Take 1 tablet by mouth 2 (two) times daily with meals. [facility] naproxen sodium (ANAPROX DS) 550 mg tablet 09-28 00:00: 00 12-26 00:00 :00 No [id number] 550mg Take 1 tablet by mouth 2 (two) times daily with meals. [facility] naproxen sodium (ANAPROX DS) 550 mg tablet 09-28 00:00: 00 12-26 00:00 :00 No [id number] 550mg Take 1 tablet by mouth 2 (two) times daily with meals. [facility] naproxen sodium (ANAPROX DS) 550 mg tablet 09-28 00:00: 00 12-26 00:00 :00 No [id number] 550mg Take 1 tablet by mouth 2 (two) times daily with meals. [facility] naproxen sodium (ANAPROX DS) 550 mg tablet 09-28 00:00: 00 12-26 00:00 :00 No [id number] 550mg Take 1 tablet by mouth 2 (two) times daily with meals. [facility] naproxen sodium (ANAPROX DS) 550 mg tablet 09-28 00:00: 00 12-26 00:00 :00 No [id number] 550mg Take 1 tablet by mouth 2 (two) times daily with meals. [facility] naproxen sodium (ANAPROX DS) 550 mg tablet 09-28 00:00: 00 12-26 00:00 :00 No [id number] 550mg Take 1 tablet by mouth 2 (two) times daily with meals. [facility] losartan 25 mg tablet 09-16 00:00: 00 12-22 00:00 :00 No 25mg Take 1 tablet by mouth 2 (two) times daily. [facility] nadoloL 20 mg tablet 09-16 00:00: 00 12-22 00:00 :00 No [id number] Please take Nadalol 40 mg QAM [facility] losartan 25 mg tablet 09-16 00:00: 00 12-22 00:00 :00 No 25mg Take 1 tablet by mouth 2 (two) times daily. [facility] nadoloL 20 mg tablet 09-16 00:00: 00 12-22 00:00 :00 No [id number] Please take Nadalol 40 mg QAM [facility] losartan 25 mg tablet 09-16 00:00: 00 12-22 00:00 :00 No 25mg Take 1 tablet by mouth 2 (two) times daily. [facility] nadoloL 20 mg tablet 09-16 00:00: 00 12-22 00:00 :00 No [id number] Please take Nadalol 40 mg QAM [facility] losartan 25 mg tablet 09-16 00:00: 00 12-22 00:00 :00 No 25mg Take 1 tablet by mouth 2 (two) times daily. [facility] nadoloL 20 mg tablet 09-16 00:00: 00 12-22 00:00 :00 No [id number] Please take Nadalol 40 mg QAM [facility] losartan 25 mg tablet 09-16 00:00: 00 12-22 00:00 :00 No 25mg Take 1 tablet by mouth 2 (two) times daily. [facility] nadoloL 20 mg tablet 09-16 00:00: 00 12-22 00:00 :00 No [id number] Please take Nadalol 40 mg QAM [facility] losartan 25 mg tablet 09-16 00:00: 00 12-22 00:00 :00 No 25mg Take 1 tablet by mouth 2 (two) times daily. [facility] nadoloL 20 mg tablet 09-16 00:00: 00 12-22 00:00 :00 No [id number] Please take Nadalol 40 mg QAM [facility] losartan 25 mg tablet 09-16 00:00: 00 12-22 00:00 :00 No 25mg Take 1 tablet by mouth 2 (two) times daily. [facility] nadoloL 20 mg tablet 09-16 00:00: 00 12-22 00:00 :00 No [id number] Please take Nadalol 40 mg QAM [facility] losartan 25 mg tablet 09-16 00:00: 00 12-22 00:00 :00 No 25mg Take 1 tablet by mouth 2 (two) times daily. [facility] nadoloL 20 mg tablet 09-16 00:00: 00 12-22 00:00 :00 No [id number] Please take Nadalol 40 mg QAM [facility] losartan 25 mg tablet 09-16 00:00: 00 12-22 00:00 :00 No 25mg Take 1 tablet by mouth 2 (two) times daily. [facility] nadoloL 20 mg tablet 09-16 00:00: 12-22 00:00 :00 No [id number] Please take Nadalol 40 mg QAM [facility] losartan 25 mg tablet 09-16 00:00: 00 12-22 00:00 :00 No 25mg Take 1 tablet by mouth 2 (two) times daily. [facility] nadoloL 20 mg tablet 09-16 00:00: 00 12-22 00:00 :00 No [id number] Please take Nadalol 40 mg QAM [facility] losartan 25 mg tablet 09-16 00:00: 00 12-22 00:00 :00 No 25mg Take 1 tablet by mouth 2 (two) times daily. [facility] nadoloL 20 mg tablet 09-16 00:00: 00 12-22 00:00 :00 No [id number] Please take Nadalol 40 mg QAM [facility] LOESTRIN FE (LOESTRIN FE 1/20) 1 mg-20 mcg (21)/75 mg (7) tablet 09-06 00:00: 00 02-09 00:00 :00 No [id number] 1{tbl} Take 1 tablet by mouth daily. [facility] LOESTRIN FE (LOESTRIN FE 1/20) 1 mg-20 mcg (21)/75 mg (7) tablet 09-06 00:00: 00 02-09 00:00 :00 No [id number] 1{tbl} Take 1 tablet by mouth daily. [facility] LOESTRIN FE (LOESTRIN FE 1/20) 1 mg-20 mcg (21)/75 mg (7) tablet 09-06 00:00: 00 02-09 00:00 :00 No [id number] 1{tbl} Take 1 tablet by mouth daily. [facility] LOESTRIN FE (LOESTRIN FE 1/20) 1 mg-20 mcg (21)/75 mg (7) tablet 09-06 00:00: 00 02-09 00:00 :00 No [id number] 1{tbl} Take 1 tablet by mouth daily. [facility] LOESTRIN FE (LOESTRIN FE 1/20) 1 mg-20 mcg (21)/75 mg (7) tablet 09-06 00:00: 00 02-09 00:00 :00 No [id number] 1{tbl} Take 1 tablet by mouth daily. [facility] LOESTRIN FE (LOESTRIN FE 1/20) 1 mg-20 mcg (21)/75 mg (7) tablet 09-06 00:00: 00 02-09 00:00 :00 No [id number] 1{tbl} Take 1 tablet by mouth daily. [facility] LOESTRIN FE (LOESTRIN FE 1/20) 1 mg-20 mcg (21)/75 mg (7) tablet 09-06 00:00: 00 02-09 00:00 :00 No [id number] 1{tbl} Take 1 tablet by mouth daily. [facility] LOESTRIN FE (LOESTRIN FE 1/20) 1 mg-20 mcg (21)/75 mg (7) tablet 09-06 00:00: 00 02-09 00:00 :00 No [id number] 1{tbl} Take 1 tablet by mouth daily. [facility] LOESTRIN FE (LOESTRIN FE 1/20) 1 mg-20 mcg (21)/75 mg (7) tablet 09-06 00:00: 00 02-09 00:00 :00 No [id number] 1{tbl} Take 1 tablet by mouth daily. [facility] LOESTRIN FE (LOESTRIN FE 1/20) 1 mg-20 mcg (21)/75 mg (7) tablet 09-06 00:00: 00 02-09 00:00 :00 No [id number] 1{tbl} Take 1 tablet by mouth daily. [facility] LOESTRIN FE (LOESTRIN FE 1/20) 1 mg-20 mcg (21)/75 mg (7) tablet 09-06 00:00: 00 02-09 00:00 :00 No [id number] 1{tbl} Take 1 tablet by mouth daily. [facility] LOESTRIN FE (LOESTRIN FE 1/20) 1 mg-20 mcg (21)/75 mg (7) tablet 09-06 00:00: 00 02-09 00:00 :00 No [id number] 1{tbl} Take 1 tablet by mouth daily. [facility] LOESTRIN FE (LOESTRIN FE 1/20) 1 mg-20 mcg (21)/75 mg (7) tablet 09-06 00:00: 00 02-09 00:00 :00 No [id number] 1{tbl} Take 1 tablet by mouth daily. [facility] LOESTRIN FE (LOESTRIN FE 1/20) 1 mg-20 mcg (21)/75 mg (7) tablet 09-06 00:00: 00 02-09 00:00 :00 No [id number] 1{tbl} Take 1 tablet by mouth daily. [facility] FLUoxetine 20 mg capsule 09-06 00:00: 00 11-22 00:00 :00 No [id number] 20mg Take 1 capsule by mouth daily. [facility] traZODone 50 mg tablet 09-06 00:00: 00 11-22 00:00 :00 No [id number] 50mg Take 1 tablet by mouth at bedtime. [facility] FLUoxetine 20 mg capsule 09-06 00:00: 00 11-22 00:00 :00 No [id number] 20mg Take 1 capsule by mouth daily. [facility] traZODone 50 mg tablet 09-06 00:00: 00 11-22 00:00 :00 No [id number] 50mg Take 1 tablet by mouth at bedtime. [facility] FLUoxetine 20 mg capsule 09-06 00:00: 00 11-22 00:00 :00 No [id number] 20mg Take 1 capsule by mouth daily. [facility] traZODone 50 mg tablet 2020-0 4-27 00:00: 00 11-22 00:00 :00 No [id number] 50mg Take 1 tablet by mouth at bedtime. [facility] FLUoxetine 20 mg capsule 2020-0 4-27 00:00: 00 11-22 00:00 :00 No [id number] 20mg Take 1 capsule by mouth daily. [facility] traZODone 50 mg tablet 2020-0 4-27 00:00: 00 11-22 00:00 :00 No [id number] 50mg Take 1 tablet by mouth at bedtime. [facility] FLUoxetine 20 mg capsule 2020-0 4-27 00:00: 00 11-22 00:00 :00 No [id number] 20mg Take 1 capsule by mouth daily. [facility] traZODone 50 mg tablet 2020-0 27 00:00: 00 11-22 00:00 :00 No [id number] 50mg Take 1 tablet by mouth at bedtime. [facility] FLUoxetine 20 mg capsule 2020-0 27 00:00: 00 11-22 00:00 :00 No [id number] 20mg Take 1 capsule by mouth daily. [facility] traZODone 50 mg tablet 2020-0 27 00:00: 00 11-22 00:00 :00 No [id number] 50mg Take 1 tablet by mouth at bedtime. [facility] FLUoxetine 20 mg capsule 2020-0 427 00:00: 00 11-22 00:00 :00 No [id number] 20mg Take 1 capsule by mouth daily. [facility] traZODone 50 mg tablet 2020-0 4-27 00:00: 00 11-22 00:00 :00 No [id number] 50mg Take 1 tablet by mouth at bedtime. [facility] FLUoxetine 20 mg capsule 2020-0 427 00:00: 00 11-22 00:00 :00 No [id number] 20mg Take 1 capsule by mouth daily. [facility] traZODone 50 mg tablet 09-06 00:00: 00 11-22 00:00 :00 No [id number] 50mg Take 1 tablet by mouth at bedtime. [facility] FLUoxetine 20 mg capsule 09-06 00:00: 00 11-22 00:00 :00 No [id number] 20mg Take 1 capsule by mouth daily. [facility] traZODone 50 mg tablet 09-06 00:00: 00 11-22 00:00 :00 No [id number] 50mg Take 1 tablet by mouth at bedtime. [facility] FLUoxetine 20 mg capsule 09-06 00:00: 00 11-22 00:00 :00 No [id number] 20mg Take 1 capsule by mouth daily. [facility] traZODone 50 mg tablet 09-06 00:00: 00 11-22 00:00 :00 No [id number] 50mg Take 1 tablet by mouth at bedtime. [facility] nadoloL 20 mg tablet 08-31 00:00: 00 09-16 00:00 :00 No [id number] Please take Nadalol 40 mg QAM and 20 mg QPM [facility] methocarbam oL (ROBAXIN) 500 mg tablet 08-18 00:00: 00 09-30 00:00 :00 No [id number] 500mg Take 1 tablet by mouth every 6 (six) hours as needed (MUSCLE SPASM). [facility] traMADoL (ULTRAM) 50 mg tablet 08-18 00:00: 00 09-30 00:00 :00 No [id number] 50mg Take 1 tablet by mouth every 6 (six) hours as needed for Pain (scale 7-10). Indication s: acute pain [facility] ibuprofen 800 mg tablet 404 00:00: 00 11-22 00:00 :00 No TAKE 1 TABLET BY MOUTH EVERY 12 HOURS NEEDED FOR PAIN [facility] ibuprofen 800 mg tablet 2020-0 4-04 00:00: 00 11-22 00:00 :00 No TAKE 1 TABLET BY MOUTH EVERY 12 HOURS NEEDED FOR PAIN [facility] ibuprofen 800 mg tablet 2020-0 4-04 00:00: 00 11-22 00:00 :00 No TAKE 1 TABLET BY MOUTH EVERY 12 HOURS NEEDED FOR PAIN [facility] ibuprofen 800 mg tablet 2020-0 4-04 00:00: 00 11-22 00:00 :00 No TAKE 1 TABLET BY MOUTH EVERY 12 HOURS NEEDED FOR PAIN [facility] ibuprofen 800 mg tablet 2020-0 4-04 00:00: 00 11-22 00:00 :00 No TAKE 1 TABLET BY MOUTH EVERY 12 HOURS NEEDED FOR PAIN [facility] ibuprofen 800 mg tablet 2020-0 4-04 00:00: 00 11-22 00:00 :00 No TAKE 1 TABLET BY MOUTH EVERY 12 HOURS NEEDED FOR PAIN [facility] ibuprofen 800 mg tablet 0 4-04 00:00: 00 11-22 00:00 :00 No TAKE 1 TABLET BY MOUTH EVERY 12 HOURS NEEDED FOR PAIN [facility] ibuprofen 800 mg tablet 2020-0 4-04 00:00: 00 11-22 00:00 :00 No TAKE 1 TABLET BY MOUTH EVERY 12 HOURS NEEDED FOR PAIN [facility] ibuprofen 800 mg tablet 2020-0 4-04 00:00: 00 11-22 00:00 :00 No TAKE 1 TABLET BY MOUTH EVERY 12 HOURS NEEDED FOR PAIN [facility] ibuprofen 800 mg tablet 2020-0 4-04 00:00: 00 11-22 00:00 :00 No TAKE 1 TABLET BY MOUTH EVERY 12 HOURS NEEDED FOR PAIN [facility] ondansetron (ZOFRAN ODT) 4 mg disintegrat ing tablet 3-22 00:00: 00 09-30 00:00 :00 No [id number] 4mg Take 1 tablet by mouth every 8 (eight) hours as needed for Nausea and Vomiting (N/V). [facility] ketorolac 10 mg tablet 3-22 00:00: 00 09-30 00:00 :00 No [id number] 10mg Take 1 tablet by mouth every 6 (six) hours as needed for Pain (scale 4-6). [facility] ciprofloxac in HCl 250 mg tablet 322 00:00: 00 09-30 00:00 :00 No [id number] 250mg Take 1 tablet by mouth 2 (two) times daily. [facility] lidocaine 5 % (700 mg/patch) patch 3 00:00: 00 09-30 00:00 :00 No [id number] 1{patch } Apply 1 Patch to area(s) every 24 (twenty-fo ur) hours as needed for Localized pain. [facility] topiramate 25 mg tablet 1-05 00:00: 00 11-22 00:00 :00 No 25mg Take 1 tablet by mouth 2 (two) times daily. [facility] topiramate 25 mg tablet 1-05 00:00: 00 11-22 00:00 :00 No 25mg Take 1 tablet by mouth 2 (two) times daily. [facility] topiramate 25 mg tablet 0 1-05 00:00: 00 11-22 00:00 :00 No 25mg Take 1 tablet by mouth 2 (two) times daily. [facility] topiramate 25 mg tablet 2020-0 1-05 00:00: 00 11-22 00:00 :00 No 25mg Take 1 tablet by mouth 2 (two) times daily. [facility] topiramate 25 mg tablet 2020-0 1-05 00:00: 00 11-22 00:00 :00 No 25mg Take 1 tablet by mouth 2 (two) times daily. [facility] topiramate 25 mg tablet 2020-0 1-05 00:00: 00 11-22 00:00 :00 No 25mg Take 1 tablet by mouth 2 (two) times daily. [facility] topiramate 25 mg tablet 2020-0 1-05 00:00: 00 11-22 00:00 :00 No 25mg Take 1 tablet by mouth 2 (two) times daily. [facility]-0 1-05 00:00: 00 11-22 00:00 :00 No 25mg Take 1 tablet by mouth 2 (two) times daily. [facility] mg tablet 2020-0 1-05 00:00: 00 11-22 00:00 :00 No 25mg Take 1 tablet by mouth 2 (two) times daily. [facility] topiramate 25 mg tablet 2020-0 1-05 00:00: 00 11-22 00:00 :00 No 25mg Take 1 tablet by mouth 2 (two) times daily. [facility] topiramate 25 mg tablet 2020-0 1-05 00:00: 00 11-22 00:00 :00 No 25mg Take 1 tablet by mouth 2 (two) times daily. [facility] topiramate 25 mg tablet 2020-0 1-05 00:00: 00 11-22 00:00 :00 No 25mg Take 1 tablet by mouth 2 (two) times daily. [facility] topiramate 25 mg tablet 2020-0 1-05 00:00: 00 11-22 00:00 :00 No 25mg Take 1 tablet by mouth 2 (two) times daily. [facility] metoprolol succinate XL 25 mg 24 hr tablet 2019-05 00:00: 00 06-15 00:00 :00 No [id number] 12.5mg Take 0.5 tablets by mouth 2 (two) times daily for 90 days. [facility] metoprolol succinate XL 25 mg 24 hr tablet 2019-05 00:00: 00 06-15 00:00 :00 No [id number] 12.5mg Take 0.5 tablets by mouth 2 (two) times daily for 90 days. [facility] metoprolol succinate XL 25 mg 24 hr tablet 2019-05 2-21 00:00: 06-15 00:00 :00 No [id number] 12.5mg Take 0.5 tablets by mouth 2 (two) times daily for 90 days. [facility] FLUoxetine 20 mg capsule 2019-05 00:00: 00 09-06 00:00 :00 No 20mg Take 20 mg by mouth daily. [facility] FLUoxetine 20 mg capsule 2019-05 00:00: 09-06 00:00 :00 No 20mg Take 20 mg by mouth daily. [facility] norgestimat e-ethinyl estradiol 0.25-35 mg-mcg per tablet 11-17 00:00: 04-15 00:00 :00 No [id number] 1{tbl} Take 1 tablet by mouth daily. [facility] buPROPion XL (WELLBUTRIN XL) 150 mg 24 hr tablet 08-12 00:00: 01-04 00:00 :00 No [id number] 150mg Take 1 tablet by mouth daily. [facility] acetaminoph en 325 mg tablet 07-22 00:00: 01-04 00:00 :00 No [id number] 650mg Take 2 tablets by mouth every 6 (six) hours as needed for Pain (scale 1-3) or Pain (scale 4-6). [facility] vitamin w/FA tablet 07-22 00:00: 01-04 00:00 :00 No [id number] 1{tbl} Take 1 tablet by mouth daily. [facility] docusate calcium 240 mg capsule 07-22 00:00: 01-04 00:00 :00 No [id number] 240mg Take 1 capsule by mouth once daily as needed for Constipati on. [facility] ferrous sulfate 325 mg (65 mg iron) tablet 12 00:00: 01-04 00:00 :00 No [id number] 325mg Take 1 tablet by mouth 2 (two) times daily. [facility] ibuprofen 600 mg tablet 12 00:00: 00 01-04 00:00 :00 No [id number] 600mg Take 1 tablet by mouth every 6 (six) hours as needed (Pain). Take with food or milk. [facility] ALBUTEROL 90 mcg/actuati on inhaler 1-14 00:00: 00 05-01 00:00 :00 No [id number] 103 INHALE 2 PUFFS BY MOUTH EVERY 6 HOURS NEEDED FOR WHEEZING FOR SHORTNESS OF BREATH [facility] buPROPion SR (WELLBUTRIN SR) 150 mg SR tablet 05-21 00:00: 01-04 00:00 :00 No [id number] 150mg Take 1 tablet by mouth 2 (two) times daily. [facility] busPIRone 10 mg tablet 05-21 00:00: 00 01-04 00:00 :00 No [id number] 109 10mg Take 1 tablet by mouth 3 (three) times daily. [facility] Immunizations Ordered Immunization Name Filled Immunization Name Date Status Comments Source Influenza Virus Vaccine Quad IM, Preserv and ABX Free 6 MO-64 YRS 2022-02-27 00:00:00 Completed [facility] Influenza Virus Vaccine Quad IM, Preserv and ABX Free 6 MO-64 YRS 2022-02-27 00:00:00 Completed [facility] Influenza Virus Vaccine Quad IM, Preserv and ABX Free 6 MO-64 YRS 2022-02-27 00:00:00 Completed [facility] Influenza Virus Vaccine Quad IM, Preserv and ABX Free 6 MO-64 YRS 2022-02-27 00:00:00 Completed [facility] Influenza Virus Vaccine Quad IM, Preserv and ABX Free 6 MO-64 YRS 2022-02-27 00:00:00 Completed [facility] Influenza Virus Vaccine Quad IM, Preserv and ABX Free 6 MO-64 YRS 2022-02-27 00:00:00 Completed [facility] Influenza Virus Vaccine Quad IM, Preserv and ABX Free 6 MO-64 YRS 2022-02-27 00:00:00 Completed [facility] Influenza Virus Vaccine Quad IM, Preserv and ABX Free 6 MO-64 YRS 2022-02-27 00:00:00 Completed [facility] Influenza Virus Vaccine Quad IM, Preserv and ABX Free 6 MO-64 YRS 2022-02-27 00:00:00 Completed [facility] Influenza Virus Vaccine Quad IM, Preserv and ABX Free 6 MO-64 YRS 2022-02-27 00:00:00 Completed [facility] Influenza Virus Vaccine Quad IM, Preserv and ABX Free 6 MO-64 YRS 2022-02-27 00:00:00 Completed [facility] Influenza Virus Vaccine Quad IM, Preserv and ABX Free 6 MO-64 YRS 2022-02-27 00:00:00 Completed [facility] Influenza Virus Vaccine Quad IM, Preserv and ABX Free 6 MO-64 YRS 2022-02-27 00:00:00 Completed [facility] Influenza Virus Vaccine Quad IM, Preserv and ABX Free 6 MO-64 YRS 2022-02-27 00:00:00 Completed [facility] Influenza Virus Vaccine Quad IM, Preserv and ABX Free 6 MO-64 YRS 2022-02-27 00:00:00 Completed [facility] Influenza Virus Vaccine Quad IM, Preserv and ABX Free 6 MO-64 YRS 2022-02-27 00:00:00 Completed [facility] Influenza Virus Vaccine Quad IM, Preserv and ABX Free 6 MO-64 YRS 2022-02-27 00:00:00 Completed [facility] Influenza Virus Vaccine Quad IM, Preserv and ABX Free 6 MO-64 YRS 2022-02-27 00:00:00 Completed [facility] Influenza Virus Vaccine Quad IM, Preserv and ABX Free 6 MO-64 YRS 2022-02-27 00:00:00 Completed [facility] Influenza Virus Vaccine Quad IM, Preserv and ABX Free 6 MO-64 YRS 2022-02-27 00:00:00 Completed [facility] Influenza Virus Vaccine Quad IM, Preserv and ABX Free 6 MO-64 YRS 2022-02-27 00:00:00 Completed [facility] Influenza Virus Vaccine Quad IM, Preserv and ABX Free 6 MO-64 YRS 2022-02-27 00:00:00 Completed [facility] Influenza Virus Vaccine Quad IM, Preserv and ABX Free 6 MO-64 YRS 2022-02-27 00:00:00 Completed [facility] Influenza Virus Vaccine Quad IM, Preserv and ABX Free 6 MO-64 YRS 2022-02-27 00:00:00 Completed [facility] Influenza Virus Vaccine Quad IM, Preserv and ABX Free 6 MO-64 YRS 2022-02-27 00:00:00 Completed [facility] Influenza Virus Vaccine Quad IM, Preserv and ABX Free 6 MO-64 YRS 2022-02-27 00:00:00 Completed [facility] Influenza Virus Vaccine Quad IM, Preserv and ABX Free 6 MO-64 YRS 2022-02-27 00:00:00 Completed [facility] Influenza Virus Vaccine Quad IM, Preserv and ABX Free 6 MO-64 YRS 2022-02-27 00:00:00 Completed [facility] Influenza Virus Vaccine Quad IM, Preserv and ABX Free 6 MO-64 YRS 2022-02-27 00:00:00 Completed [facility] Influenza Virus Vaccine Quad IM, Preserv and ABX Free 6 MO-64 YRS 2022-02-27 00:00:00 Completed [facility] Influenza Virus Vaccine Quad IM, Preserv and ABX Free 6 MO-64 YRS 2022-02-27 00:00:00 Completed [facility] Influenza Virus Vaccine Quad IM, Preserv and ABX Free 6 MO-64 YRS 2022-02-27 00:00:00 Completed [facility] Influenza Virus Vaccine Quad IM, Preserv and ABX Free 6 MO-64 YRS 2022-02-27 00:00:00 Completed [facility] Influenza Virus Vaccine Quad IM, Preserv and ABX Free 6 MO-64 YRS 2022-02-27 00:00:00 Completed [facility] Influenza Virus Vaccine Quad IM, Preserv and ABX Free 6 MO-64 YRS 2022-02-27 00:00:00 Completed [facility] Influenza Virus Vaccine Quad IM, Preserv and ABX Free 6 MO-64 YRS 2022-02-27 00:00:00 Completed [facility] Influenza Virus Vaccine Quad IM, Preserv and ABX Free 6 MO-64 YRS 2022-02-27 00:00:00 Completed [facility] Influenza Virus Vaccine Quad IM, Preserv and ABX Free 6 MO-64 YRS 2022-02-27 00:00:00 Completed [facility] Influenza Virus Vaccine Quad IM, Preserv and ABX Free 6 MO-64 YRS 2022-02-27 00:00:00 Completed [facility] Influenza Virus Vaccine Quad IM, Preserv and ABX Free 6 MO-64 YRS 2022-02-27 00:00:00 Completed [facility] Influenza Virus Vaccine Quad IM, Preserv and ABX Free 6 MO-64 YRS 2022-02-27 00:00:00 Completed [facility] Influenza Virus Vaccine Quad IM, Preserv and ABX Free 6 MO-64 YRS 2022-02-27 00:00:00 Completed [facility] Influenza Virus Vaccine Quad IM, Preserv and ABX Free 6 MO-64 YRS 2022-02-27 00:00:00 Completed [facility] Influenza Virus Vaccine Quad IM, Preserv and ABX Free 6 MO-64 YRS 2022-02-27 00:00:00 Completed [facility] Influenza Virus Vaccine Quad IM, Preserv and ABX Free 6 MO-64 YRS 2022-02-27 00:00:00 Completed [facility] Influenza Virus Vaccine Quad IM, Preserv and ABX Free 6 MO-64 YRS 2022-02-27 00:00:00 Completed [facility] Influenza Virus Vaccine Quad IM, Preserv and ABX Free 6 MO-64 YRS 2022-02-27 00:00:00 Completed [facility] Influenza Virus Vaccine Quad IM, Preserv and ABX Free 6 MO-64 YRS 2022-02-27 00:00:00 Completed [facility] Influenza Virus Vaccine Quad IM, Preserv and ABX Free 6 MO-64 YRS 2022-02-27 00:00:00 Completed [facility] Influenza Virus Vaccine Quad IM, Preserv and ABX Free 6 MO-64 YRS (FLUCELVAX) 2022-02-27 00:00:00 Completed [facility] Influenza Virus Vaccine Quad IM, Preserv and ABX Free 6 MO-64 YRS (FLUCELVAX) 2022-02-27 00:00:00 Completed [facility] Influenza Virus Vaccine Quad IM, Preserv and ABX Free 6 MO-64 YRS (FLUCELVAX) 2022-02-27 00:00:00 Completed [facility] Influenza Virus Vaccine Quad .5 mL IM 6+ MO 2022-02-21 00:00:00 Completed [facility] Influenza Virus Vaccine Quad .5 mL IM 6+ MO 2022-02-21 00:00:00 Completed [facility] Influenza Virus Vaccine Quad .5 mL IM 6+ MO 2022-02-21 00:00:00 Completed [facility] Influenza Virus Vaccine Quad .5 mL IM 6+ MO 2022-02-21 00:00:00 Completed [facility] Influenza Virus Vaccine Quad .5 mL IM 6+ MO 2022-02-21 00:00:00 Completed [facility] Influenza Virus Vaccine Quad .5 mL IM 6+ MO 2022-02-21 00:00:00 Completed [facility] Influenza Virus Vaccine Quad .5 mL IM 6+ MO 2022-02-21 00:00:00 Completed [facility] Influenza Virus Vaccine Quad .5 mL IM 6+ MO 2022-02-21 00:00:00 Completed [facility] Influenza Virus Vaccine Quad .5 mL IM 6+ MO 2022-02-21 00:00:00 Completed [facility] Influenza Virus Vaccine Quad .5 mL IM 6+ MO 2022-02-21 00:00:00 Completed [facility] Influenza Virus Vaccine Quad .5 mL IM 6+ MO 2022-02-21 00:00:00 Completed [facility] Influenza Virus Vaccine Quad .5 mL IM 6+ MO 2022-02-21 00:00:00 Completed [facility] Influenza Virus Vaccine Quad .5 mL IM 6+ MO 2022-02-21 00:00:00 Completed [facility] Influenza Virus Vaccine Quad .5 mL IM 6+ MO (FLUZONE/FLULAVAL/F LUARIX) 2022-02-21 00:00:00 Completed [facility] Influenza Virus Vaccine Quad .5 mL IM 6+ MO (FLUZONE/FLULAVAL/F LUARIX) 2022-02-21 00:00:00 Completed [facility] Influenza Virus Vaccine Quad .5 mL IM 6+ MO (FLUZONE/FLULAVAL/F LUARIX) 2022-02-21 00:00:00 Completed [facility] Influenza Virus Vaccine 2021-06-11 00:00:00 Completed [facility] Influenza Virus Vaccine 2021-06-11 00:00:00 Completed [facility] Influenza Virus Vaccine 2021-06-11 00:00:00 Completed [facility] Influenza Virus Vaccine 2021-06-11 00:00:00 Completed [facility] Influenza Virus Vaccine 2021-06-11 00:00:00 Completed [facility] Influenza Virus Vaccine 2021-06-11 00:00:00 Completed [facility] Influenza Virus Vaccine 2021-06-11 00:00:00 Completed [facility] Influenza Virus Vaccine 2021-06-11 00:00:00 Completed [facility] Influenza Virus Vaccine 2021-06-11 00:00:00 Completed [facility] Influenza Virus Vaccine 2021-06-11 00:00:00 Completed [facility] Influenza Virus Vaccine 2021-06-11 00:00:00 Completed [facility] Influenza Virus Vaccine 2021-06-11 00:00:00 Completed [facility] Influenza Virus Vaccine 2021-06-11 00:00:00 Completed [facility] Influenza Virus Vaccine 2021-06-11 00:00:00 Completed [facility] Influenza Virus Vaccine 2021-06-11 00:00:00 Completed [facility] Influenza Virus Vaccine 2021-06-11 00:00:00 Completed [facility] Influenza Virus Vaccine 2021-06-11 00:00:00 Completed [facility] Influenza Virus Vaccine 2021-06-11 00:00:00 Completed [facility] Influenza Virus Vaccine 2021-06-11 00:00:00 Completed [facility] Influenza Virus Vaccine 2021-06-11 00:00:00 Completed [facility] Influenza Virus Vaccine 2021-06-11 00:00:00 Completed [facility] Influenza Virus Vaccine 2021-06-11 00:00:00 Completed [facility] Influenza Virus Vaccine 2021-06-11 00:00:00 Completed [facility] Influenza Virus Vaccine 2021-06-11 00:00:00 Completed [facility] Influenza Virus Vaccine 2021-06-11 00:00:00 Completed [facility] Influenza Virus Vaccine 2021-06-11 00:00:00 Completed [facility] Influenza Virus Vaccine 2021-06-11 00:00:00 Completed [facility] Influenza Virus Vaccine 2021-06-11 00:00:00 Completed [facility] Influenza Virus Vaccine 2021-06-11 00:00:00 Completed [facility] Influenza Virus Vaccine 2021-06-11 00:00:00 Completed [facility] Influenza Virus Vaccine 2021-06-11 00:00:00 Completed [facility] Influenza Virus Vaccine 2021-06-11 00:00:00 Completed [facility] Influenza Virus Vaccine 2021-06-11 00:00:00 Completed [facility] Influenza Virus Vaccine 2021-06-11 00:00:00 Completed [facility] Influenza Virus Vaccine 2021-06-11 00:00:00 Completed [facility] Influenza Virus Vaccine 2021-06-11 00:00:00 Completed [facility] Influenza Virus Vaccine 2021-06-11 00:00:00 [facility] [facility] 2021-06-11 00:00:00 Completed [facility] Influenza Virus Vaccine 2021-06-11 00:00:00 Completed [facility] Influenza Virus Vaccine 2021-06-11 00:00:00 Completed [facility] Influenza Virus Vaccine 2021-06-11 00:00:00 Completed [facility] Influenza Virus Vaccine 2021-06-11 00:00:00 Completed [facility] Influenza Virus Vaccine 2021-06-11 00:00:00 Completed [facility] Influenza Virus Vaccine 2021-06-11 00:00:00 Completed [facility] Influenza Virus Vaccine 2021-06-11 00:00:00 Completed [facility] Influenza Virus Vaccine 2021-06-11 00:00:00 Completed [facility] Influenza Virus Vaccine 2021-06-11 00:00:00 Completed [facility] Influenza Virus Vaccine 2021-06-11 00:00:00 Completed [facility] Influenza Virus Vaccine Quad .5 mL IM 6+ MO 2021-06-11 00:00:00 Completed [facility] Influenza Virus Vaccine 2021-06-11 00:00:00 Completed [facility] Influenza Virus Vaccine Quad .5 mL IM 6+ MO 2021-06-11 00:00:00 Completed [facility] Influenza Virus Vaccine 2021-06-11 00:00:00 Completed [facility] Influenza Virus Vaccine Quad .5 mL IM 6+ MO 2021-06-11 00:00:00 Completed [facility] Influenza Virus Vaccine 2021-06-11 00:00:00 Completed [facility] Influenza Virus Vaccine Quad .5 mL IM 6+ MO 2021-06-11 00:00:00 Completed [facility] Influenza Virus Vaccine 2021-06-11 00:00:00 Completed [facility] Influenza Virus Vaccine Quad .5 mL IM 6+ MO 2021-06-11 00:00:00 Completed [facility] Influenza Virus Vaccine 2021-06-11 00:00:00 Completed [facility] Influenza Virus Vaccine Quad .5 mL IM 6+ MO 2021-06-11 00:00:00 Completed [facility] Influenza Virus Vaccine 2021-06-11 00:00:00 Completed [facility] Influenza Virus Vaccine Quad .5 mL IM 6+ MO 2021-06-11 00:00:00 Completed [facility] Influenza Virus Vaccine 2021-06-11 00:00:00 Completed [facility] Influenza Virus Vaccine Quad .5 mL IM 6+ MO 2021-06-11 00:00:00 Completed [facility] Influenza Virus Vaccine 2021-06-11 00:00:00 Completed [facility] Influenza Virus Vaccine Quad .5 mL IM 6+ MO 2021-06-11 00:00:00 Completed [facility] Influenza Virus Vaccine 2021-06-11 00:00:00 Completed [facility] Influenza Virus Vaccine Quad .5 mL IM 6+ MO 2021-06-11 00:00:00 Completed [facility] Influenza Virus Vaccine 2021-06-11 00:00:00 Completed [facility] Influenza Virus Vaccine Quad .5 mL IM 6+ MO 2021-06-11 00:00:00 Completed [facility] Influenza Virus Vaccine 2021-06-11 00:00:00 Completed [facility] Influenza Virus Vaccine Quad .5 mL IM 6+ MO 2021-06-11 00:00:00 Completed [facility] Influenza Virus Vaccine 2021-06-11 00:00:00 Completed [facility] Influenza Virus Vaccine Quad .5 mL IM 6+ MO 2021-06-11 00:00:00 Completed [facility] Influenza Virus Vaccine 2021-06-11 00:00:00 Completed [facility] Influenza Virus Vaccine Quad .5 mL IM 6+ MO (FLUZONE/FLULAVAL/F LUARIX) 2021-06-11 00:00:00 Completed [facility] Influenza Virus Vaccine 2021-06-11 00:00:00 Completed [facility] Influenza Virus Vaccine Quad .5 mL IM 6+ MO (FLUZONE/FLULAVAL/F LUARIX) 2021-06-11 00:00:00 Completed [facility] Influenza Virus Vaccine 2021-06-11 00:00:00 Completed [facility] Influenza Virus Vaccine Quad .5 mL IM 6+ MO (FLUZONE/FLULAVAL/F LUARIX) 2021-06-11 00:00:00 Completed [facility] Influenza Virus Vaccine 2020-05-19 00:00:00 Completed [facility] Influenza Virus Vaccine 2020-05-19 00:00:00 Completed [facility] Influenza Virus Vaccine 2020-05-19 00:00:00 Completed [facility] Influenza Virus Vaccine 2020-05-19 00:00:00 Completed [facility] Influenza Virus Vaccine 2020-05-19 00:00:00 Completed [facility] Influenza Virus Vaccine 2020-05-19 00:00:00 Completed [facility] Influenza Virus Vaccine 2020-05-19 00:00:00 Completed [facility] Influenza Virus Vaccine 2020-05-19 00:00:00 Completed [facility] Influenza Virus Vaccine 2020-05-19 00:00:00 Completed [facility] Influenza Virus Vaccine 2020-05-19 00:00:00 Completed [facility] Influenza Virus Vaccine 2020-05-19 00:00:00 Completed [facility] Influenza Virus Vaccine 2020-05-19 00:00:00 Completed [facility] Influenza Virus Vaccine 2020-05-19 00:00:00 Completed [facility] Influenza Virus Vaccine 2020-05-19 00:00:00 Completed [facility] Influenza Virus Vaccine 2020-05-19 00:00:00 Completed [facility] Influenza Virus Vaccine 2020-05-19 00:00:00 Completed [facility] Influenza Virus Vaccine 2020-05-19 00:00:00 Completed [facility] Influenza Virus Vaccine 2020-05-19 00:00:00 Completed [facility] Influenza Virus Vaccine 2020-05-19 00:00:00 Completed [facility] Influenza Virus Vaccine 2020-05-19 00:00:00 Completed [facility] Influenza Virus Vaccine 2020-05-19 00:00:00 Completed [facility] Influenza Virus Vaccine 2020-05-19 00:00:00 Completed [facility] Influenza Virus Vaccine 2020-05-19 00:00:00 Completed [facility] Influenza Virus Vaccine 2020-05-19 00:00:00 Completed [facility] Influenza Virus Vaccine 2020-05-19 00:00:00 Completed [facility] Influenza Virus Vaccine 2020-05-19 00:00:00 Completed [facility] Influenza Virus Vaccine 2020-05-19 00:00:00 Completed [facility] Influenza Virus Vaccine 2020-05-19 00:00:00 Completed [facility] Influenza Virus Vaccine 2020-05-19 00:00:00 Completed [facility] Influenza Virus Vaccine 2020-05-19 00:00:00 Completed [facility] Influenza Virus Vaccine 2020-05-19 00:00:00 Completed [facility] Influenza Virus Vaccine 2020-05-19 00:00:00 Completed [facility] Influenza Virus Vaccine 2020-05-19 00:00:00 Completed [facility] Influenza Virus Vaccine 2020-05-19 00:00:00 Completed [facility] Influenza Virus Vaccine 2020-05-19 00:00:00 Completed [facility] Influenza Virus Vaccine 2020-05-19 00:00:00 Completed [facility] Influenza Virus Vaccine 2020-05-19 00:00:00 Completed [facility] Influenza Virus Vaccine 2020-05-19 00:00:00 Completed [facility] Influenza Virus Vaccine 2020-05-19 00:00:00 Completed [facility] Influenza Virus Vaccine 2020-05-19 00:00:00 Completed [facility] Influenza Virus Vaccine 2020-05-19 00:00:00 Completed [facility] Influenza Virus Vaccine 2020-05-19 00:00:00 Completed [facility] Influenza Virus Vaccine 2020-05-19 00:00:00 Completed [facility] Influenza Virus Vaccine 2020-05-19 00:00:00 Completed [facility] Influenza Virus Vaccine 2020-05-19 00:00:00 Completed [facility] Influenza Virus Vaccine 2020-05-19 00:00:00 Completed [facility] Influenza Virus Vaccine 2020-05-19 00:00:00 Completed [facility] Influenza Virus Vaccine 2020-05-19 00:00:00 Completed [facility] Influenza Virus Vaccine 2020-05-19 00:00:00 Completed [facility] Influenza Virus Vaccine 2020-05-19 00:00:00 Completed [facility] Influenza Virus Vaccine 2020-05-19 00:00:00 Completed [facility] Influenza Virus Vaccine 2020-05-19 00:00:00 Completed [facility] Influenza Virus Vaccine 2020-05-19 00:00:00 Completed [facility] Influenza Virus Vaccine 2020-05-19 00:00:00 Completed [facility] Influenza Virus Vaccine 2020-05-19 00:00:00 Completed [facility] Influenza Virus Vaccine 2020-05-19 00:00:00 Completed [facility] Influenza Virus Vaccine 2020-05-19 00:00:00 Completed [facility] Influenza Virus Vaccine 2020-05-19 00:00:00 Completed [facility] Influenza Virus Vaccine 2020-05-19 00:00:00 Completed [facility] Influenza Virus Vaccine 2020-05-19 00:00:00 Completed [facility] Influenza Virus Vaccine 2020-05-19 00:00:00 Completed [facility] Influenza Virus Vaccine 2020-05-19 00:00:00 Completed [facility] Influenza Virus Vaccine 2020-05-19 00:00:00 Completed [facility] Influenza Virus Vaccine Recomb Quad IM, Preserv and ABX Free 18-64 YRS 2020-05-16 00:00:00 Completed [facility] Influenza Virus Vaccine Recomb Quad IM, Preserv and ABX Free 18-64 YRS 2020-05-16 00:00:00 Completed [facility] Influenza Virus Vaccine Recomb Quad IM, Preserv and ABX Free 18-64 YRS 2020-05-16 00:00:00 Completed [facility] Influenza Virus Vaccine Recomb Quad IM, Preserv and ABX Free 18-64 YRS 2020-05-16 00:00:00 Completed [facility] Influenza Virus Vaccine Recomb Quad IM, Preserv and ABX Free 18-64 YRS 2020-05-16 00:00:00 Completed [facility] Influenza Virus Vaccine Recomb Quad IM, Preserv and ABX Free 18-64 YRS 2020-05-16 00:00:00 Completed [facility] Influenza Virus Vaccine Recomb Quad IM, Preserv and ABX Free 18-64 YRS 2020-05-16 00:00:00 Completed [facility] Influenza Virus Vaccine Recomb Quad IM, Preserv and ABX Free 18-64 YRS 2020-05-16 00:00:00 Completed [facility] Influenza Virus Vaccine Recomb Quad IM, Preserv and ABX Free 18-64 YRS 2020-05-16 00:00:00 Completed [facility] Influenza Virus Vaccine Recomb Quad IM, Preserv and ABX Free 18-64 YRS 2020-05-16 00:00:00 Completed [facility] Influenza Virus Vaccine Recomb Quad IM, Preserv and ABX Free 18-64 YRS 2020-05-16 00:00:00 Completed [facility] Influenza Virus Vaccine Recomb Quad IM, Preserv and ABX Free 18-64 YRS 2020-05-16 00:00:00 Completed [facility] Influenza Virus Vaccine Recomb Quad IM, Preserv and ABX Free 18-64 YRS 2020-05-16 00:00:00 Completed [facility] Influenza Virus Vaccine Recomb Quad IM, Preserv and ABX Free 18-64 YRS 2020-05-16 00:00:00 Completed [facility] Influenza Virus Vaccine Recomb Quad IM, Preserv and ABX Free 18-64 YRS 2020-05-16 00:00:00 Completed [facility] Influenza Virus Vaccine Recomb Quad IM, Preserv and ABX Free 18-64 YRS 2020-05-16 00:00:00 Completed [facility] Influenza Virus Vaccine Recomb Quad IM, Preserv and ABX Free 18-64 YRS 2020-05-16 00:00:00 Completed [facility] Influenza Virus Vaccine Recomb Quad IM, Preserv and ABX Free 18-64 YRS 2020-05-16 00:00:00 Completed [facility] Influenza Virus Vaccine Recomb Quad IM, Preserv and ABX Free 18-64 YRS 2020-05-16 00:00:00 Completed [facility] Influenza Virus Vaccine Recomb Quad IM, Preserv and ABX Free 18-64 YRS 2020-05-16 00:00:00 Completed [facility] Influenza Virus Vaccine Recomb Quad IM, Preserv and ABX Free 18-64 YRS 2020-05-16 00:00:00 Completed [facility] Influenza Virus Vaccine Recomb Quad IM, Preserv and ABX Free 18-64 YRS 2020-05-16 00:00:00 Completed [facility] Influenza Virus Vaccine Recomb Quad IM, Preserv and ABX Free 18-64 YRS 2020-05-16 00:00:00 Completed [facility] Influenza Virus Vaccine Recomb Quad IM, Preserv and ABX Free 18-64 YRS 2020-05-16 00:00:00 Completed [facility] Influenza Virus Vaccine Recomb Quad IM, Preserv and ABX Free 18-64 YRS 2020-05-16 00:00:00 Completed [facility] Influenza Virus Vaccine Recomb Quad IM, Preserv and ABX Free 18-64 YRS 2020-05-16 00:00:00 Completed [facility] Influenza Virus Vaccine Recomb Quad IM, Preserv and ABX Free 18-64 YRS 2020-05-16 00:00:00 Completed [facility] Influenza Virus Vaccine Recomb Quad IM, Preserv and ABX Free 18-64 YRS 2020-05-16 00:00:00 Completed [facility] Influenza Virus Vaccine Recomb Quad IM, Preserv and ABX Free 18-64 YRS 2020-05-16 00:00:00 Completed [facility] Influenza Virus Vaccine Recomb Quad IM, Preserv and ABX Free 18-64 YRS 2020-05-16 00:00:00 Completed [facility] Influenza Virus Vaccine Recomb Quad IM, Preserv and ABX Free 18-64 YRS 2020-05-16 00:00:00 Completed [facility] Influenza Virus Vaccine Recomb Quad IM, Preserv and ABX Free 18-64 YRS 2020-05-16 00:00:00 Completed [facility] Influenza Virus Vaccine Recomb Quad IM, Preserv and ABX Free 18-64 YRS 2020-05-16 00:00:00 Completed [facility] Influenza Virus Vaccine Recomb Quad IM, Preserv and ABX Free 18-64 YRS 2020-05-16 00:00:00 Completed [facility] Influenza Virus Vaccine Recomb Quad IM, Preserv and ABX Free 18-64 YRS 2020-05-16 00:00:00 Completed [facility] Influenza Virus Vaccine Recomb Quad IM, Preserv and ABX Free 18-64 YRS 2020-05-16 00:00:00 Completed [facility] Influenza Virus Vaccine Recomb Quad IM, Preserv and ABX Free 18-64 YRS 2020-05-16 00:00:00 Completed [facility] Influenza Virus Vaccine Recomb Quad IM, Preserv and ABX Free 18-64 YRS 2020-05-16 00:00:00 Completed [facility] Influenza Virus Vaccine Recomb Quad IM, Preserv and ABX Free 18-64 YRS 2020-05-16 00:00:00 Completed [facility] Influenza Virus Vaccine Recomb Quad IM, Preserv and ABX Free 18-64 YRS 2020-05-16 00:00:00 Completed [facility] Influenza Virus Vaccine Recomb Quad IM, Preserv and ABX Free 18-64 YRS 2020-05-16 00:00:00 Completed [facility] Influenza Virus Vaccine Recomb Quad IM, Preserv and ABX Free 18-64 YRS 2020-05-16 00:00:00 Completed [facility] Influenza Virus Vaccine Recomb Quad IM, Preserv and ABX Free 18-64 YRS 2020-05-16 00:00:00 Completed [facility] Influenza Virus Vaccine Recomb Quad IM, Preserv and ABX Free 18-64 YRS 2020-05-16 00:00:00 Completed [facility] Influenza Virus Vaccine Recomb Quad IM, Preserv and ABX Free 18-64 YRS 2020-05-16 00:00:00 Completed [facility] Influenza Virus Vaccine Recomb Quad IM, Preserv and ABX Free 18-64 YRS 2020-05-16 00:00:00 Completed [facility] Influenza Virus Vaccine Recomb Quad IM, Preserv and ABX Free 18-64 YRS 2020-05-16 00:00:00 Completed [facility] Influenza Virus Vaccine Recomb Quad IM, Preserv and ABX Free 18-64 YRS 2020-05-16 00:00:00 Completed [facility] Influenza Virus Vaccine Recomb Quad IM, Preserv and ABX Free 18-64 YRS 2020-05-16 00:00:00 Completed [facility] Influenza Virus Vaccine Recomb Quad IM, Preserv and ABX Free 18-64 YRS 2020-05-16 00:00:00 Completed [facility] Influenza Virus Vaccine Recomb Quad IM, Preserv and ABX Free 18-64 YRS 2020-05-16 00:00:00 Completed [facility] Influenza Virus Vaccine Recomb Quad IM, Preserv and ABX Free 18-64 YRS 2020-05-16 00:00:00 Completed [facility] Influenza Virus Vaccine Recomb Quad IM, Preserv and ABX Free 18-64 YRS 2020-05-16 00:00:00 Completed [facility] Influenza Virus Vaccine Recomb Quad IM, Preserv and ABX Free 18-64 YRS 2020-05-16 00:00:00 Completed [facility] Influenza Virus Vaccine Recomb Quad IM, Preserv and ABX Free 18-64 YRS 2020-05-16 00:00:00 Completed [facility] Influenza Virus Vaccine Recomb Quad IM, Preserv and ABX Free 18-64 YRS 2020-05-16 00:00:00 Completed [facility] Influenza Virus Vaccine Recomb Quad IM, Preserv and ABX Free 18-64 YRS 2020-05-16 00:00:00 Completed [facility] Influenza Virus Vaccine Recomb Quad IM, Preserv and ABX Free 18-64 YRS 2020-05-16 00:00:00 Completed [facility] Influenza Virus Vaccine Recomb Quad IM, Preserv and ABX Free 18-64 YRS 2020-05-16 00:00:00 Completed [facility] Influenza Virus Vaccine Recomb Quad IM, Preserv and ABX Free 18-64 YRS 2020-05-16 00:00:00 Completed [facility] Influenza Virus Vaccine Recomb Quad IM, Preserv and ABX Free 18-64 YRS 2020-05-16 00:00:00 Completed [facility] Influenza Virus Vaccine Recomb Quad IM, Preserv and ABX Free 18-64 YRS 2020-05-16 00:00:00 Completed [facility] Influenza Virus Vaccine Recomb Quad IM, Preserv and ABX Free 18-64 YRS 2020-05-16 00:00:00 Completed [facility] TDAP (ADACEL) VACCINE 2019-05-21 00:00:00 Completed [facility] TDAP (ADACEL) VACCINE 2019-05-21 00:00:00 Completed [facility] TDAP (ADACEL) VACCINE 2019-05-21 00:00:00 Completed [facility] TDAP (ADACEL) VACCINE 2019-05-21 00:00:00 Completed [facility] TDAP (ADACEL) VACCINE 2019-05-21 00:00:00 Completed [facility] TDAP (ADACEL) VACCINE 2019-05-21 00:00:00 Completed [facility] TDAP (ADACEL) VACCINE 2019-05-21 00:00:00 Completed [facility] TDAP (ADACEL) VACCINE 2019-05-21 00:00:00 Completed [facility] TDAP (ADACEL) VACCINE 2019-05-21 00:00:00 Completed [facility] TDAP (ADACEL) VACCINE 2019-05-21 00:00:00 Completed [facility] TDAP (ADACEL) VACCINE 2019-05-21 00:00:00 Completed [facility] TDAP (ADACEL) VACCINE 2019-05-21 00:00:00 Completed [facility] TDAP (ADACEL) VACCINE 2019-05-21 00:00:00 Completed [facility] TDAP (ADACEL) VACCINE 2019-05-21 00:00:00 Completed [facility] TDAP (ADACEL) VACCINE 2019-05-21 00:00:00 Completed [facility] TDAP (ADACEL) VACCINE 2019-05-21 00:00:00 Completed [facility] TDAP (ADACEL) VACCINE 2019-05-21 00:00:00 Completed [facility] TDAP (ADACEL) VACCINE 2019-05-21 00:00:00 Completed [facility] TDAP (ADACEL) VACCINE 2019-05-21 00:00:00 Completed [facility] TDAP (ADACEL) VACCINE 2019-05-21 00:00:00 Completed [facility] TDAP (ADACEL) VACCINE 2019-05-21 00:00:00 Completed [facility] TDAP (ADACEL) VACCINE 2019-05-21 00:00:00 Completed [facility] TDAP (ADACEL) VACCINE 2019-05-21 00:00:00 Completed [facility] TDAP (ADACEL) VACCINE 2019-05-21 00:00:00 Completed [facility] TDAP (ADACEL) VACCINE 2019-05-21 00:00:00 Completed [facility] TDAP (ADACEL) VACCINE 2019-05-21 00:00:00 Completed [facility] TDAP (ADACEL) VACCINE 2019-05-21 00:00:00 Completed [facility] TDAP (ADACEL) VACCINE 2019-05-21 00:00:00 Completed [facility] TDAP (ADACEL) VACCINE 2019-05-21 00:00:00 Completed [facility] TDAP (ADACEL) VACCINE 2019-05-21 00:00:00 Completed [facility] TDAP (ADACEL) VACCINE 2019-05-21 00:00:00 Completed [facility] TDAP (ADACEL) VACCINE 2019-05-21 00:00:00 Completed [facility] TDAP (ADACEL) VACCINE 2019-05-21 00:00:00 Completed [facility] TDAP (ADACEL) VACCINE 2019-05-21 00:00:00 Completed [facility] TDAP (ADACEL) VACCINE 2019-05-21 00:00:00 Completed [facility] TDAP (ADACEL) VACCINE 2019-05-21 00:00:00 Completed [facility] TDAP (ADACEL) VACCINE 2019-05-21 00:00:00 Completed [facility] TDAP (ADACEL) VACCINE 2019-05-21 00:00:00 Completed [facility] TDAP (ADACEL) VACCINE 2019-05-21 00:00:00 Completed [facility] TDAP (ADACEL) VACCINE 2019-05-21 00:00:00 Completed [facility] TDAP (ADACEL) VACCINE 2019-05-21 00:00:00 Completed [facility] TDAP (ADACEL) VACCINE 2019-05-21 00:00:00 Completed [facility] TDAP (ADACEL) VACCINE 2019-05-21 00:00:00 Completed [facility] TDAP (ADACEL) VACCINE 2019-05-21 00:00:00 Completed [facility] TDAP (ADACEL) VACCINE 2019-05-21 00:00:00 Completed [facility] TDAP (ADACEL) VACCINE 2019-05-21 00:00:00 Completed [facility] TDAP (ADACEL) VACCINE 2019-05-21 00:00:00 Completed [facility] TDAP (ADACEL) VACCINE 2019-05-21 00:00:00 Completed [facility] TDAP (ADACEL) VACCINE 2019-05-21 00:00:00 Completed [facility] TDAP (ADACEL) VACCINE 2019-05-21 00:00:00 Completed [facility] TDAP (ADACEL) VACCINE 2019-05-21 00:00:00 Completed [facility] TDAP (ADACEL) VACCINE 2019-05-21 00:00:00 Completed [facility] TDAP (ADACEL) VACCINE 2019-05-21 00:00:00 Completed [facility] TDAP (ADACEL) VACCINE 2019-05-21 00:00:00 Completed [facility] TDAP (ADACEL) VACCINE 2019-05-21 00:00:00 Completed [facility] TDAP (ADACEL) VACCINE 2019-05-21 00:00:00 Completed [facility] TDAP (ADACEL) VACCINE 2019-05-21 00:00:00 Completed [facility] TDAP (ADACEL) VACCINE 2019-05-21 00:00:00 Completed [facility] TDAP (ADACEL) VACCINE 2019-05-21 00:00:00 Completed [facility] TDAP (ADACEL) VACCINE 2019-05-21 00:00:00 Completed [facility] TDAP (ADACEL) VACCINE 2019-05-21 00:00:00 Completed [facility] TDAP (ADACEL) VACCINE 2019-05-21 00:00:00 Completed [facility] TDAP (ADACEL) VACCINE 2019-05-21 00:00:00 Completed [facility] Influenza Virus Vaccine Quad .5 mL IM 6+ MO 2019-02-06 00:00:00 Completed [facility] Influenza Virus Vaccine Quad .5 mL IM 6+ MO 2019-02-06 00:00:00 Completed [facility] Influenza Virus Vaccine Quad .5 mL IM 6+ MO 2019-02-06 00:00:00 Completed [facility] Influenza Virus Vaccine Quad .5 mL IM 6+ MO 2019-02-06 00:00:00 [facility] [facility] Quad .5 mL IM 6+ MO 2019-02-06 00:00:00 Completed [facility] Influenza Virus Vaccine Quad .5 mL IM 6+ MO 2019-02-06 00:00:00 Completed [facility] Influenza Virus Vaccine Quad .5 mL IM 6+ MO 2019-02-06 00:00:00 Completed [facility] Influenza Virus Vaccine Quad .5 mL IM 6+ MO 2019-02-06 00:00:00 Completed [facility] Influenza Virus Vaccine Quad .5 mL IM 6+ MO 2019-02-06 00:00:00 Completed [facility] Influenza Virus Vaccine Quad .5 mL IM 6+ MO 2019-02-06 00:00:00 Completed [facility] Influenza Virus Vaccine Quad .5 mL IM 6+ MO 2019-02-06 00:00:00 Completed [facility] Influenza Virus Vaccine Quad .5 mL IM 6+ MO 2019-02-06 00:00:00 Completed [facility] Influenza Virus Vaccine Quad .5 mL IM 6+ MO 2019-02-06 00:00:00 Completed [facility] Influenza Virus Vaccine Quad .5 mL IM 6+ MO 2019-02-06 00:00:00 Completed [facility] Influenza Virus Vaccine Quad .5 mL IM 6+ MO 2019-02-06 00:00:00 Completed [facility] Influenza Virus Vaccine Quad .5 mL IM 6+ MO 2019-02-06 00:00:00 Completed [facility] Influenza Virus Vaccine Quad .5 mL IM 6+ MO 2019-02-06 00:00:00 Completed [facility] Influenza Virus Vaccine Quad .5 mL IM 6+ MO 2019-02-06 00:00:00 Completed [facility] Influenza Virus Vaccine Quad .5 mL IM 6+ MO 2019-02-06 00:00:00 Completed [facility] Influenza Virus Vaccine Quad .5 mL IM 6+ MO 2019-02-06 00:00:00 Completed [facility] Influenza Virus Vaccine Quad .5 mL IM 6+ MO 2019-02-06 00:00:00 Completed [facility] Influenza Virus Vaccine Quad .5 mL IM 6+ MO 2019-02-06 00:00:00 Completed [facility] Influenza Virus Vaccine Quad .5 mL IM 6+ MO 2019-02-06 00:00:00 Completed [facility] Influenza Virus Vaccine Quad .5 mL IM 6+ MO 2019-02-06 00:00:00 Completed [facility] Influenza Virus Vaccine Quad .5 mL IM 6+ MO 2019-02-06 00:00:00 Completed [facility] Influenza Virus Vaccine Quad .5 mL IM 6+ MO 2019-02-06 00:00:00 Completed [facility] Influenza Virus Vaccine Quad .5 mL IM 6+ MO 2019-02-06 00:00:00 Completed [facility] Influenza Virus Vaccine Quad .5 mL IM 6+ MO 2019-02-06 00:00:00 Completed [facility] Influenza Virus Vaccine Quad .5 mL IM 6+ MO 2019-02-06 00:00:00 Completed [facility] Influenza Virus Vaccine Quad .5 mL IM 6+ MO 2019-02-06 00:00:00 Completed [facility] Influenza Virus Vaccine Quad .5 mL IM 6+ MO 2019-02-06 00:00:00 Completed [facility] Influenza Virus Vaccine Quad .5 mL IM 6+ MO 2019-02-06 00:00:00 Completed [facility] Influenza Virus Vaccine Quad .5 mL IM 6+ MO 2019-02-06 00:00:00 Completed [facility] Influenza Virus Vaccine Quad .5 mL IM 6+ MO 2019-02-06 00:00:00 Completed [facility] Influenza Virus Vaccine Quad .5 mL IM 6+ MO 2019-02-06 00:00:00 Completed [facility] Influenza Virus Vaccine Quad .5 mL IM 6+ MO 2019-02-06 00:00:00 Completed [facility] Influenza Virus Vaccine Quad .5 mL IM 6+ MO 2019-02-06 00:00:00 Completed [facility] Influenza Virus Vaccine Quad .5 mL IM 6+ MO 2019-02-06 00:00:00 Completed [facility] Influenza Virus Vaccine Quad .5 mL IM 6+ MO 2019-02-06 00:00:00 Completed [facility] Influenza Virus Vaccine Quad .5 mL IM 6+ MO 2019-02-06 00:00:00 Completed [facility] Influenza Virus Vaccine Quad .5 mL IM 6+ MO 2019-02-06 00:00:00 Completed [facility] Influenza Virus Vaccine Quad .5 mL IM 6+ MO 2019-02-06 00:00:00 Completed [facility] Influenza Virus Vaccine Quad .5 mL IM 6+ MO 2019-02-06 00:00:00 Completed [facility] Influenza Virus Vaccine Quad .5 mL IM 6+ MO 2019-02-06 00:00:00 Completed [facility] Influenza Virus Vaccine Quad .5 mL IM 6+ MO 2019-02-06 00:00:00 Completed [facility] Influenza Virus Vaccine Quad .5 mL IM 6+ MO 2019-02-06 00:00:00 Completed [facility] Influenza Virus Vaccine Quad .5 mL IM 6+ MO 2019-02-06 00:00:00 Completed [facility] Influenza Virus Vaccine Quad .5 mL IM 6+ MO 2019-02-06 00:00:00 Completed [facility] Influenza Virus Vaccine Quad .5 mL IM 6+ MO 2019-02-06 00:00:00 Completed [facility] Influenza Virus Vaccine Quad .5 mL IM 6+ MO 2019-02-06 00:00:00 Completed [facility] Influenza Virus Vaccine Quad .5 mL IM 6+ MO 2019-02-06 00:00:00 Completed [facility] Influenza Virus Vaccine Quad .5 mL IM 6+ MO 2019-02-06 00:00:00 Completed [facility] Influenza Virus Vaccine Quad .5 mL IM 6+ MO 2019-02-06 00:00:00 Completed [facility] Influenza Virus Vaccine Quad .5 mL IM 6+ MO 2019-02-06 00:00:00 Completed [facility] Influenza Virus Vaccine Quad .5 mL IM 6+ MO 2019-02-06 00:00:00 Completed [facility] Influenza Virus Vaccine Quad .5 mL IM 6+ MO 2019-02-06 00:00:00 Completed [facility] Influenza Virus Vaccine Quad .5 mL IM 6+ MO 2019-02-06 00:00:00 Completed [facility] Influenza Virus Vaccine Quad .5 mL IM 6+ MO 2019-02-06 00:00:00 Completed [facility] Influenza Virus Vaccine Quad .5 mL IM 6+ MO 2019-02-06 00:00:00 Completed [facility] Influenza Virus Vaccine Quad .5 mL IM 6+ MO 2019-02-06 00:00:00 Completed [facility] Influenza Virus Vaccine Quad .5 mL IM 6+ MO (FLUZONE/FLULAVAL/F LUARIX) 2019-02-06 00:00:00 Completed [facility] Influenza Virus Vaccine Quad .5 mL IM 6+ MO (FLUZONE/FLULAVAL/F LUARIX) 2019-02-06 00:00:00 Completed [facility] Influenza Virus Vaccine Quad .5 mL IM 6+ MO (FLUZONE/FLULAVAL/F LUARIX) 2019-02-06 00:00:00 Completed [facility] Influenza Virus Vaccine Quad .5 mL IM 6+ MO (FLUZONE/FLULAVAL/F LUARIX) Unknown Completed [facility] TDAP (ADACEL) VACCINE Unknown Completed [facility] Influenza Virus Vaccine Recomb Quad IM, Preserv and ABX Free 18-64 YRS Unknown Completed [facility] Influenza Virus Vaccine Unknown Completed [facility] Influenza Virus Vaccine Unknown Completed [facility] Influenza Virus Vaccine Quad IM, Preserv and ABX Free 6 MO-64 YRS (FLUCELVAX) Unknown Completed [facility] Influenza Virus Vaccine Quad .5 mL IM 6+ MO (FLUZONE/FLULAVAL/F LUARIX) Unknown Completed [facility] Influenza Virus Vaccine Quad .5 mL IM 6+ MO (FLUZONE/FLULAVAL/F LUARIX) Unknown Completed [facility] Influenza Virus Vaccine Quad .5 mL IM 6+ MO (FLUZONE/FLULAVAL/F LUARIX) Unknown Completed [facility] TDAP (ADACEL) VACCINE Unknown Completed [facility] Influenza Virus Vaccine Recomb Quad IM, Preserv and ABX Free 18-64 YRS Unknown Completed [facility] Influenza Virus Vaccine Unknown Completed [facility] Influenza Virus Vaccine Unknown Completed [facility] Influenza Virus Vaccine Quad IM, Preserv and ABX Free 6 MO-64 YRS (FLUCELVAX) Unknown Completed [facility] Influenza Virus Vaccine Quad .5 mL IM 6+ MO (FLUZONE/FLULAVAL/F LUARIX) Unknown Completed [facility] Influenza Virus Vaccine Quad .5 mL IM 6+ MO (FLUZONE/FLULAVAL/F LUARIX) Unknown Completed [facility] Influenza Virus Vaccine Quad .5 mL IM 6+ MO (FLUZONE/FLULAVAL/F LUARIX) Unknown Completed [facility] TDAP (ADACEL) VACCINE Unknown Completed [facility] Influenza Virus Vaccine Recomb Quad IM, Preserv and ABX Free 18-64 YRS Unknown Completed [facility] Influenza Virus Vaccine Unknown Completed [facility] Influenza Virus Vaccine Unknown Completed [facility] Influenza Virus Vaccine Quad .5 mL IM 6+ MO (FLUZONE/FLULAVAL/F LUARIX) Unknown Completed [facility] Influenza Virus Vaccine Quad .5 mL IM 6+ MO (FLUZONE/FLULAVAL/F LUARIX) Unknown Completed [facility] TDAP (ADACEL) VACCINE Unknown Completed [facility] Influenza Virus Vaccine Recomb Quad IM, Preserv and ABX Free 18-64 YRS Unknown Completed [facility] Influenza Virus Vaccine Unknown Completed [facility] Influenza Virus Vaccine Unknown Completed [facility] Influenza Virus Vaccine Quad .5 mL IM 6+ MO (FLUZONE/FLULAVAL/F LUARIX) Unknown Completed [facility] Influenza Virus Vaccine Quad .5 mL IM 6+ MO (FLUZONE/FLULAVAL/F LUARIX) Unknown Completed [facility] TDAP (ADACEL) VACCINE Unknown Completed [facility] Influenza Virus Vaccine Recomb Quad IM, Preserv and ABX Free 18-64 YRS Unknown Completed [facility] Influenza Virus Vaccine Unknown Completed [facility] Influenza Virus Vaccine Unknown Completed [facility] Influenza Virus Vaccine Quad .5 mL IM 6+ MO (FLUZONE/FLULAVAL/F LUARIX) Unknown Completed [facility] Influenza Virus Vaccine Quad .5 mL IM 6+ MO (FLUZONE/FLULAVAL/F LUARIX) Unknown Completed [facility] TDAP (ADACEL) VACCINE Unknown Completed [facility] Influenza Virus Vaccine Recomb Quad IM, Preserv and ABX Free 18-64 YRS Unknown Completed [facility] Influenza Virus Vaccine Unknown Completed [facility] Influenza Virus Vaccine Unknown Completed [facility] Influenza Virus Vaccine Quad .5 mL IM 6+ MO (FLUZONE/FLULAVAL/F LUARIX) Unknown Completed [facility] Influenza Virus Vaccine Quad .5 mL IM 6+ MO (FLUZONE/FLULAVAL/F LUARIX) Unknown Completed [facility] TDAP (ADACEL) VACCINE Unknown Completed [facility] Influenza Virus Vaccine Recomb Quad IM, Preserv and ABX Free 18-64 YRS Unknown Completed [facility] Influenza Virus Vaccine Unknown Completed [facility] Influenza Virus Vaccine Unknown Completed [facility] Influenza Virus Vaccine Quad .5 mL IM 6+ MO (FLUZONE/FLULAVAL/F LUARIX) Unknown Completed [facility] Influenza Virus Vaccine Quad .5 mL IM 6+ MO (FLUZONE/FLULAVAL/F LUARIX) Unknown Completed [facility] TDAP (ADACEL) VACCINE Unknown Completed [facility] Influenza Virus Vaccine Recomb Quad IM, Preserv and ABX Free 18-64 YRS Unknown Completed [facility] Influenza Virus Vaccine Unknown Completed [facility] Influenza Virus Vaccine Unknown Completed [facility] Influenza Virus Vaccine Quad .5 mL IM 6+ MO (FLUZONE/FLULAVAL/F LUARIX) Unknown Completed [facility] Influenza Virus Vaccine Quad .5 mL IM 6+ MO (FLUZONE/FLULAVAL/F LUARIX) Unknown Completed [facility] TDAP (ADACEL) VACCINE Unknown Completed [facility] Influenza Virus Vaccine Recomb Quad IM, Preserv and ABX Free 18-64 YRS Unknown Completed [facility] Influenza Virus Vaccine Unknown Completed [facility] Influenza Virus Vaccine Unknown Completed [facility] Influenza Virus Vaccine Quad .5 mL IM 6+ MO (FLUZONE/FLULAVAL/F LUARIX) Unknown Completed [facility] Influenza Virus Vaccine Quad .5 mL IM 6+ MO (FLUZONE/FLULAVAL/F LUARIX) Unknown Completed [facility] TDAP (ADACEL) VACCINE Unknown Completed [facility] Influenza Virus Vaccine Recomb Quad IM, Preserv and ABX Free 18-64 YRS Unknown Completed [facility] Influenza Virus Vaccine Unknown Completed [facility] Influenza Virus Vaccine Unknown Completed [facility] Influenza Virus Vaccine Quad .5 mL IM 6+ MO (FLUZONE/FLULAVAL/F LUARIX) Unknown Completed [facility] Influenza Virus Vaccine Quad .5 mL IM 6+ MO (FLUZONE/FLULAVAL/F LUARIX) Unknown Completed [facility] TDAP (ADACEL) VACCINE Unknown Completed [facility] Influenza Virus Vaccine Recomb Quad IM, Preserv and ABX Free 18-64 YRS Unknown Completed [facility] Influenza Virus Vaccine Unknown Completed [facility] Influenza Virus Vaccine Unknown Completed [facility] Influenza Virus Vaccine Quad .5 mL IM 6+ MO (FLUZONE/FLULAVAL/F LUARIX) Unknown Completed [facility] Influenza Virus Vaccine Quad .5 mL IM 6+ MO (FLUZONE/FLULAVAL/F LUARIX) Unknown Completed [facility] TDAP (ADACEL) VACCINE Unknown Completed [facility] Influenza Virus Vaccine Recomb Quad IM, Preserv and ABX Free 18-64 YRS Unknown Completed [facility] Influenza Virus Vaccine Unknown Completed [facility] Influenza Virus Vaccine Unknown Completed [facility] Influenza Virus Vaccine Quad .5 mL IM 6+ MO (FLUZONE/FLULAVAL/F LUARIX) Unknown Completed [facility] Influenza Virus Vaccine Quad .5 mL IM 6+ MO (FLUZONE/FLULAVAL/F LUARIX) Unknown Completed [facility] TDAP (ADACEL) VACCINE Unknown Completed [facility] Influenza Virus Vaccine Recomb Quad IM, Preserv and ABX Free 18-64 YRS Unknown Completed [facility] Influenza Virus Vaccine Unknown Completed [facility] Influenza Virus Vaccine Unknown Completed [facility] Influenza Virus Vaccine Quad .5 mL IM 6+ MO (FLUZONE/FLULAVAL/F LUARIX) Unknown Completed [facility] Influenza Virus Vaccine Quad .5 mL IM 6+ MO (FLUZONE/FLULAVAL/F LUARIX) Unknown Completed [facility] TDAP (ADACEL) VACCINE Unknown Completed [facility] Influenza Virus Vaccine Recomb Quad IM, Preserv and ABX Free 18-64 YRS Unknown Completed [facility] Influenza Virus Vaccine Unknown Completed [facility] Influenza Virus Vaccine Unknown Completed [facility] Influenza Virus Vaccine Quad .5 mL IM 6+ MO (FLUZONE/FLULAVAL/F LUARIX) Unknown Completed [facility] Influenza Virus Vaccine Quad .5 mL IM 6+ MO (FLUZONE/FLULAVAL/F LUARIX) Unknown Completed [facility] TDAP (ADACEL) VACCINE Unknown Completed [facility] Influenza Virus Vaccine Recomb Quad IM, Preserv and ABX Free 18-64 YRS Unknown Completed [facility] Influenza Virus Vaccine Unknown Completed [facility] Influenza Virus Vaccine Unknown Completed [facility] Influenza Virus Vaccine Quad .5 mL IM 6+ MO (FLUZONE/FLULAVAL/F LUARIX) Unknown Completed [facility] Influenza Virus Vaccine Quad .5 mL IM 6+ MO (FLUZONE/FLULAVAL/F LUARIX) Unknown Completed [facility] TDAP (ADACEL) VACCINE Unknown Completed [facility] Influenza Virus Vaccine Recomb Quad IM, Preserv and ABX Free 18-64 YRS Unknown Completed [facility] Influenza Virus Vaccine Unknown Completed [facility] Influenza Virus Vaccine Unknown Completed [facility] Influenza Virus Vaccine Quad .5 mL IM 6+ MO (FLUZONE/FLULAVAL/F LUARIX) Unknown Completed [facility] Influenza Virus Vaccine Quad .5 mL IM 6+ MO (FLUZONE/FLULAVAL/F LUARIX) Unknown Completed [facility] TDAP (ADACEL) VACCINE Unknown Completed [facility] Influenza Virus Vaccine Recomb Quad IM, Preserv and ABX Free 18-64 YRS Unknown Completed [facility] Influenza Virus Vaccine Unknown Completed [facility] Influenza Virus Vaccine Unknown Completed [facility] Influenza Virus Vaccine Quad .5 mL IM 6+ MO (FLUZONE/FLULAVAL/F LUARIX) Unknown Completed [facility] Influenza Virus Vaccine Quad .5 mL IM 6+ MO (FLUZONE/FLULAVAL/F LUARIX) Unknown Completed [facility] TDAP (ADACEL) VACCINE Unknown Completed [facility] Influenza Virus Vaccine Recomb Quad IM, Preserv and ABX Free 18-64 YRS Unknown Completed [facility] Influenza Virus Vaccine Unknown Completed [facility] Influenza Virus Vaccine Unknown Completed [facility] Influenza Virus Vaccine Quad .5 mL IM 6+ MO (FLUZONE/FLULAVAL/F LUARIX) Unknown Completed [facility] Influenza Virus Vaccine Quad .5 mL IM 6+ MO (FLUZONE/FLULAVAL/F LUARIX) Unknown Completed [facility] TDAP (ADACEL) VACCINE Unknown Completed [facility] Influenza Virus Vaccine Recomb Quad IM, Preserv and ABX Free 18-64 YRS Unknown Completed [facility] Influenza Virus Vaccine Unknown Completed [facility] Influenza Virus Vaccine Quad .5 mL IM 6+ MO (FLUZONE/FLULAVAL/F LUARIX) Unknown Completed [facility] TDAP (ADACEL) VACCINE Unknown Completed [facility] Influenza Virus Vaccine Recomb Quad IM, Preserv and ABX Free 18-64 YRS Unknown Completed [facility] Influenza Virus Vaccine Unknown Completed [facility] Influenza Virus Vaccine Quad .5 mL IM 6+ MO (FLUZONE/FLULAVAL/F LUARIX) Unknown Completed [facility] TDAP (ADACEL) VACCINE Unknown Completed [facility] Influenza Virus Vaccine Recomb Quad IM, Preserv and ABX Free 18-64 YRS Unknown Completed [facility] Influenza Virus Vaccine Unknown Completed [facility] Influenza Virus Vaccine Quad .5 mL IM 6+ MO (FLUZONE/FLULAVAL/F LUARIX) Unknown Completed [facility] TDAP (ADACEL) VACCINE Unknown Completed [facility] Influenza Virus Vaccine Recomb Quad IM, Preserv and ABX Free 18-64 YRS Unknown Completed [facility] Influenza Virus Vaccine Unknown Completed [facility] Influenza Virus Vaccine Quad .5 mL IM 6+ MO (FLUZONE/FLULAVAL/F LUARIX) Unknown Completed [facility] TDAP (ADACEL) VACCINE Unknown Completed [facility] Influenza Virus Vaccine Recomb Quad IM, Preserv and ABX Free 18-64 YRS Unknown Completed [facility] Influenza Virus Vaccine Unknown Completed [facility] Influenza Virus Vaccine Quad .5 mL IM 6+ MO (FLUZONE/FLULAVAL/F LUARIX) Unknown Completed [facility] TDAP (ADACEL) VACCINE Unknown Completed [facility] Influenza Virus Vaccine Recomb Quad IM, Preserv and ABX Free 18-64 YRS Unknown Completed [facility] Influenza Virus Vaccine Unknown Completed [facility] Influenza Virus Vaccine Quad .5 mL IM 6+ MO (FLUZONE/FLULAVAL/F LUARIX) Unknown Completed [facility] TDAP (ADACEL) VACCINE Unknown Completed [facility] Influenza Virus Vaccine Recomb Quad IM, Preserv and ABX Free 18-64 YRS Unknown Completed [facility] Influenza Virus Vaccine Unknown Completed [facility] Influenza Virus Vaccine Quad .5 mL IM 6+ MO (FLUZONE/FLULAVAL/F LUARIX) Unknown Completed [facility] TDAP (ADACEL) VACCINE Unknown Completed [facility] Influenza Virus Vaccine Recomb Quad IM, Preserv and ABX Free 18-64 YRS Unknown Completed [facility] Influenza Virus Vaccine Unknown Completed [facility] Influenza Virus Vaccine Quad .5 mL IM 6+ MO (FLUZONE/FLULAVAL/F LUARIX) Unknown Completed [facility] TDAP (ADACEL) VACCINE Unknown Completed [facility] Influenza Virus Vaccine Recomb Quad IM, Preserv and ABX Free 18-64 YRS Unknown Completed [facility] Influenza Virus Vaccine Unknown Completed [facility] Influenza Virus Vaccine Quad .5 mL IM 6+ MO (FLUZONE/FLULAVAL/F LUARIX) Unknown Completed [facility] TDAP (ADACEL) VACCINE Unknown Completed [facility] Influenza Virus Vaccine Recomb Quad IM, Preserv and ABX Free 18-64 YRS Unknown Completed [facility] Influenza Virus Vaccine Unknown Completed [facility] Influenza Virus Vaccine Quad .5 mL IM 6+ MO (FLUZONE/FLULAVAL/F LUARIX) Unknown Completed [facility] TDAP (ADACEL) VACCINE Unknown Completed [facility] Influenza Virus Vaccine Recomb Quad IM, Preserv and ABX Free 18-64 YRS Unknown Completed [facility] Influenza Virus Vaccine Unknown Completed [facility] Influenza Virus Vaccine Quad .5 mL IM 6+ MO (FLUZONE/FLULAVAL/F LUARIX) Unknown Completed [facility] TDAP (ADACEL) VACCINE Unknown Completed [facility] Influenza Virus Vaccine Recomb Quad IM, Preserv and ABX Free 18-64 YRS Unknown Completed [facility] Influenza Virus Vaccine Unknown Completed [facility] Influenza Virus Vaccine Quad .5 mL IM 6+ MO (FLUZONE/FLULAVAL/F LUARIX) Unknown Completed [facility] TDAP (ADACEL) VACCINE Unknown Completed [facility] Influenza Virus Vaccine Recomb Quad IM, Preserv and ABX Free 18-64 YRS Unknown Completed [facility] Influenza Virus Vaccine Unknown Completed [facility] Influenza Virus Vaccine Quad .5 mL IM 6+ MO (FLUZONE/FLULAVAL/F LUARIX) Unknown Completed [facility] TDAP (ADACEL) VACCINE Unknown Completed [facility] Influenza Virus Vaccine Recomb Quad IM, Preserv and ABX Free 18-64 YRS Unknown Completed [facility] Influenza Virus Vaccine Unknown Completed [facility] Influenza Virus Vaccine Quad .5 mL IM 6+ MO (FLUZONE/FLULAVAL/F LUARIX) Unknown Completed [facility] TDAP (ADACEL) VACCINE Unknown Completed [facility] Influenza Virus Vaccine Recomb Quad IM, Preserv and ABX Free 18-64 YRS Unknown Completed [facility] Influenza Virus Vaccine Unknown Completed [facility] Influenza Virus Vaccine Quad .5 mL IM 6+ MO (FLUZONE/FLULAVAL/F LUARIX) Unknown Completed [facility] TDAP (ADACEL) VACCINE Unknown Completed [facility] Influenza Virus Vaccine Recomb Quad IM, Preserv and ABX Free 18-64 YRS Unknown Com[facility] [facility] Influ[facility] Vaccine Unknown Completed [facility] Influenza Virus Vaccine Quad .5 mL IM 6+ MO (FLUZONE/FLULAVAL/F LUARIX) Unknown Completed [facility] TDAP (ADACEL) VACCINE Unknown Completed [facility] Influenza Virus Vaccine Recomb Quad IM, Preserv and ABX Free 18-64 YRS Unknown Completed [facility] Influenza Virus Vaccine Unknown Completed [facility] Influenza Virus Vaccine Quad .5 mL IM 6+ MO (FLUZONE/FLULAVAL/F LUARIX) Unknown Completed [facility] TDAP (ADACEL) VACCINE Unknown Completed [facility] Influenza Virus Vaccine Recomb Quad IM, Preserv and ABX Free 18-64 YRS Unknown Completed [facility] Influenza Virus Vaccine Unknown Completed [facility] Influenza Virus Vaccine Quad .5 mL IM 6+ MO (FLUZONE/FLULAVAL/F LUARIX) Unknown Completed [facility] TDAP (ADACEL) VACCINE Unknown Completed [facility] Influenza Virus Vaccine Recomb Quad IM, Preserv and ABX Free 18-64 YRS Unknown Completed [facility] Influenza Virus Vaccine Unknown Completed [facility] Influenza Virus Vaccine Quad .5 mL IM 6+ MO (FLUZONE/FLULAVAL/F LUARIX) Unknown Completed [facility] TDAP (ADACEL) VACCINE Unknown Completed [facility] Influenza Virus Vaccine Recomb Quad IM, Preserv and ABX Free 18-64 YRS Unknown Completed [facility] Influenza Virus Vaccine Unknown Completed [facility] Influenza Virus Vaccine Quad .5 mL IM 6+ MO (FLUZONE/FLULAVAL/F LUARIX) Unknown Completed [facility] TDAP (ADACEL) VACCINE Unknown Completed [facility] Influenza Virus Vaccine Recomb Quad IM, Preserv and ABX Free 18-64 YRS Unknown Completed [facility] Influenza Virus Vaccine Unknown Completed [facility] Influenza Virus Vaccine Quad .5 mL IM 6+ MO (FLUZONE/FLULAVAL/F LUARIX) Unknown Completed [facility] TDAP (ADACEL) VACCINE Unknown Completed [facility] Influenza Virus Vaccine Recomb Quad IM, Preserv and ABX Free 18-64 YRS Unknown Completed [facility] Influenza Virus Vaccine Unknown Completed [facility] Influenza Virus Vaccine Quad .5 mL IM 6+ MO (FLUZONE/FLULAVAL/F LUARIX) Unknown Completed [facility] TDAP (ADACEL) VACCINE Unknown Completed [facility] Influenza Virus Vaccine Recomb Quad IM, Preserv and ABX Free 18-64 YRS Unknown Completed [facility] Influenza Virus Vaccine Unknown Completed [facility] Influenza Virus Vaccine Quad .5 mL IM 6+ MO (FLUZONE/FLULAVAL/F LUARIX) Unknown Completed [facility] TDAP (ADACEL) VACCINE Unknown Completed [facility] Influenza Virus Vaccine Recomb Quad IM, Preserv and ABX Free 18-64 YRS Unknown Completed [facility] Influenza Virus Vaccine Unknown Completed [facility] Influenza Virus Vaccine Quad .5 mL IM 6+ MO (FLUZONE/FLULAVAL/F LUARIX) Unknown Completed [facility] TDAP (ADACEL) VACCINE Unknown Completed [facility] Influenza Virus Vaccine Recomb Quad IM, Preserv and ABX Free 18-64 YRS Unknown Completed [facility] Influenza Virus Vaccine Unknown Completed [facility] Influenza Virus Vaccine Quad .5 mL IM 6+ MO (FLUZONE/FLULAVAL/F LUARIX) Unknown Completed [facility] TDAP (ADACEL) VACCINE Unknown Completed [facility] Influenza Virus Vaccine Recomb Quad IM, Preserv and ABX Free 18-64 YRS Unknown Completed [facility] Influenza Virus Vaccine Unknown Completed [facility] Influenza Virus Vaccine Quad .5 mL IM 6+ MO (FLUZONE/FLULAVAL/F LUARIX) Unknown Completed [facility] TDAP (ADACEL) VACCINE Unknown Completed [facility] Influenza Virus Vaccine Recomb Quad IM, Preserv and ABX Free 18-64 YRS Unknown Completed [facility] Influenza Virus Vaccine Unknown Completed [facility] Influenza Virus Vaccine Quad .5 mL IM 6+ MO (FLUZONE/FLULAVAL/F LUARIX) Unknown Completed [facility] TDAP (ADACEL) VACCINE Unknown Completed [facility] Influenza Virus Vaccine Recomb Quad IM, Preserv and ABX Free 18-64 YRS Unknown Completed [facility] Influenza Virus Vaccine Unknown Completed [facility] Influenza Virus Vaccine Quad .5 mL IM 6+ MO (FLUZONE/FLULAVAL/F LUARIX) Unknown Completed [facility] TDAP (ADACEL) VACCINE Unknown Completed [facility] Influenza Virus Vaccine Recomb Quad IM, Preserv and ABX Free 18-64 YRS Unknown Completed [facility] Influenza Virus Vaccine Unknown Completed [facility] Influenza Virus Vaccine Quad .5 mL IM 6+ MO (FLUZONE/FLULAVAL/F LUARIX) Unknown Completed [facility] TDAP (ADACEL) VACCINE Unknown Completed [facility] Influenza Virus Vaccine Recomb Quad IM, Preserv and ABX Free 18-64 YRS Unknown Completed [facility] Influenza Virus Vaccine Unknown Completed [facility] Influenza Virus Vaccine Quad .5 mL IM 6+ MO (FLUZONE/FLULAVAL/F LUARIX) Unknown Completed [facility] TDAP (ADACEL) VACCINE Unknown Completed [facility] Influenza Virus Vaccine Recomb Quad IM, Preserv and ABX Free 18-64 YRS Unknown Completed [facility] Influenza Virus Vaccine Unknown Completed [facility] Influenza Virus Vaccine Quad .5 mL IM 6+ MO (FLUZONE/FLULAVAL/F LUARIX) Unknown Completed [facility] TDAP (ADACEL) VACCINE Unknown Completed [facility] Influenza Virus Vaccine Recomb Quad IM, Preserv and ABX Free 18-64 YRS Unknown Completed [facility] Influenza Virus Vaccine Unknown Completed [facility] Influenza Virus Vaccine Quad .5 mL IM 6+ MO (FLUZONE/FLULAVAL/F LUARIX) Unknown Completed [facility] TDAP (ADACEL) VACCINE Unknown Completed [facility] Influenza Virus Vaccine Recomb Quad IM, Preserv and ABX Free 18-64 YRS Unknown Completed [facility] Influenza Virus Vaccine Unknown Completed [facility] Influenza Virus Vaccine Quad .5 mL IM 6+ MO (FLUZONE/FLULAVAL/F LUARIX) Unknown Completed [facility] TDAP (ADACEL) VACCINE Unknown Completed [facility] Influenza Virus Vaccine Recomb Quad IM, Preserv and ABX Free 18-64 YRS Unknown Completed [facility] Influenza Virus Vaccine Unknown Completed [facility] Influenza Virus Vaccine Quad .5 mL IM 6+ MO (FLUZONE/FLULAVAL/F LUARIX) Unknown Completed [facility] TDAP (ADACEL) VACCINE Unknown Completed [facility] Influenza Virus Vaccine Recomb Quad IM, Preserv and ABX Free 18-64 YRS Unknown Completed [facility] Influenza Virus Vaccine Unknown Completed [facility] Influenza Virus Vaccine Quad .5 mL IM 6+ MO (FLUZONE/FLULAVAL/F LUARIX) Unknown Completed [facility] TDAP (ADACEL) VACCINE Unknown Completed [facility] Influenza Virus Vaccine Recomb Quad IM, Preserv and ABX Free 18-64 YRS Unknown Completed [facility] Influenza Virus Vaccine Unknown Completed [facility] Influenza Virus Vaccine Quad .5 mL IM 6+ MO (FLUZONE/FLULAVAL/F LUARIX) Unknown Completed [facility] TDAP (ADACEL) VACCINE Unknown Completed [facility] Influenza Virus Vaccine Quad .5 mL IM 6+ MO (FLUZONE/FLULAVAL/F LUARIX) Unknown Completed [facility] TDAP (ADACEL) VACCINE Unknown Completed [facility] Influenza Virus Vaccine Quad .5 mL IM 6+ MO (FLUZONE/FLULAVAL/F LUARIX) Unknown Completed [facility] TDAP (ADACEL) VACCINE Unknown Completed [facility] Influenza Virus Vaccine Quad .5 mL IM 6+ MO (FLUZONE/FLULAVAL/F LUARIX) Unknown Completed [facility] TDAP (ADACEL) VACCINE Unknown Completed [facility] Influenza Virus Vaccine Quad .5 mL IM 6+ MO (FLUZONE/FLULAVAL/F LUARIX) Unknown Completed [facility] TDAP (ADACEL) VACCINE Unknown Completed [facility] Influenza Virus Vaccine Quad .5 mL IM 6+ MO (FLUZONE/FLULAVAL/F LUARIX) Unknown Completed [facility] TDAP (ADACEL) VACCINE Unknown Completed [facility] Influenza Virus Vaccine Quad .5 mL IM 6+ MO (FLUZONE/FLULAVAL/F LUARIX) Unknown Completed [facility] TDAP (ADACEL) VACCINE Unknown Completed [facility] Influenza Virus Vaccine Quad .5 mL IM 6+ MO (FLUZONE/FLULAVAL/F LUARIX) Unknown Completed [facility] TDAP (ADACEL) VACCINE Unknown Completed [facility] Influenza Virus Vaccine Quad .5 mL IM 6+ MO (FLUZONE/FLULAVAL/F LUARIX) Unknown Completed [facility] TDAP (ADACEL) VACCINE Unknown Completed [facility] Influenza Virus Vaccine Quad .5 mL IM 6+ MO (FLUZONE/FLULAVAL/F LUARIX) Unknown Completed [facility] TDAP (ADACEL) VACCINE Unknown Completed [facility] Influenza Virus Vaccine Recomb Quad IM, Preserv and ABX Free 18-64 YRS Unknown Completed [facility] Influenza Virus Vaccine Unknown Completed [facility] Influenza Virus Vaccine Unknown Completed [facility] Influenza Virus Vaccine Quad IM, Preserv and ABX Free 6 MO-64 YRS (FLUCELVAX) Unknown Completed [facility] Influenza Virus Vaccine Quad .5 mL IM 6+ MO (FLUZONE/FLULAVAL/F LUARIX) Unknown Completed [facility] Influenza Virus Vaccine Quad .5 mL IM 6+ MO (FLUZONE/FLULAVAL/F LUARIX) Unknown Completed [facility] Influenza Virus Vaccine Quad .5 mL IM 6+ MO (FLUZONE/FLULAVAL/F LUARIX) Unknown Completed [facility] TDAP (ADACEL) VACCINE Unknown Completed [facility] Influenza Virus Vaccine Recomb Quad IM, Preserv and ABX Free 18-64 YRS Unknown Completed [facility] Influenza Virus Vaccine Unknown Completed [facility] Influenza Virus Vaccine Unknown Completed [facility] Influenza Virus Vaccine Quad IM, Preserv and ABX Free 6 MO-64 YRS (FLUCELVAX) Unknown Completed [facility] Influenza Virus Vaccine Quad .5 mL IM 6+ MO (FLUZONE/FLULAVAL/F LUARIX) Unknown Completed [facility] Influenza Virus Vaccine Quad .5 mL IM 6+ MO (FLUZONE/FLULAVAL/F LUARIX) Unknown Completed [facility] Vital Signs Vital Name Observation Time Observation Value Comments S ource Systolic blood pressure 2023-05-19 17:24:00 129 mm[Hg] [facility] Diastolic blood pressure 2023-05-19 17:24:00 83 mm[Hg] [facility] Heart rate 2023-05-19 17:24:00 77 /min [facility] Respiratory rate 2023-05-19 17:24:00 15 /min [facility] Oxygen saturation in Arterial blood by Pulse oximetry 2023-05-19 17:24:00 100 /min [facility] Body temperature 2023-05-19 14:50:00 37.28 Irene [facility] Body height 2023-05-19 14:50:00 154.9 cm [facility] Body weight 2023-05-19 14:50:00 58.968 kg [facility] BMI 2023-05-19 14:50:00 24.56 kg/m2 [facility] Systolic blood pressure 2023-01-15 16:56:00 132 mm[Hg] [facility] Diastolic blood pressure 2023-01-15 16:56:00 91 mm[Hg] [facility] Heart rate 2023-01-15 16:56:00 67 /min [facility] Body temperature 2023-01-15 16:56:00 36.78 Irene [facility] Respiratory rate 2023-01-15 16:56:00 20 /min [facility] Oxygen saturation in Arterial blood by Pulse oximetry 2023-01-15 16:56:00 100 /min [facility] Body height 2023-01-12 09:05:00 154.9 cm [facility] Body weight 2023-01-12 09:05:00 58.968 kg [facility] BMI 2023-01-12 09:05:00 24.56 kg/m2 [facility] Systolic blood pressure 2022-11-21 21:40:00 122 mm[Hg] [facility] Diastolic blood pressure 2022-11-21 21:40:00 90 mm[Hg] [facility] Heart rate 2022-11-21 21:40:00 92 /min [facility] Respiratory rate 2022-11-21 21:40:00 16 /min [facility] Oxygen saturation in Arterial blood by Pulse oximetry 2022-11-21 21:40:00 99 /min [facility] Body temperature 2022-11-21 18:07:00 37.28 Irene [facility] Body weight 2022-11-21 18:07:00 68.04 kg [facility] BMI 2022-11-21 18:07:00 28.34 kg/m2 [facility] Systolic blood pressure 2022-09-05 17:22:00 139 mm[Hg] [facility] Diastolic blood pressure 2022-09-05 17:22:00 91 mm[Hg] [facility] Heart rate 2022-09-05 17:22:00 120 /min [facility] Respiratory rate 2022-09-05 17:22:00 18 /min [facility] Oxygen saturation in Arterial blood by Pulse oximetry 2022-09-05 17:22:00 99 /min [facility] Body temperature 2022-09-05 13:43:00 37.11 [facility] Body weight 2022-09-05 13:43:00 68.04 kg [facility] BMI 2022-09-05 13:43:00 28.34 kg/m2 [facility] Systolic blood pressure 2022-08-01 00:49:00 138 mm[Hg] [facility] Diastolic blood pressure 2022-08-01 00:49:00 104 mm[Hg] [facility] Heart rate 2022-08-01 00:49:00 108 /min [facility] Respiratory rate 2022-08-01 00:49:00 18 /min [facility] Oxygen saturation in Arterial blood by Pulse oximetry 2022-08-01 00:49:00 99 /min [facility] Body temperature 2022-07-31 22:52:00 37.11 [facility] Body height 2022-07-31 22:52:00 154.9 cm [facility] Body weight 2022-07-31 22:52:00 68.04 kg [facility] BMI 2022-07-31 22:52:00 28.34 kg/m2 [facility] Systolic blood pressure 2022-07-15 15:32:00 130 mm[Hg] [facility] Diastolic blood pressure 2022-07-15 15:32:00 90 mm[Hg] [facility] Heart rate 2022-07-15 15:31:00 81 /min [facility] Body temperature 2022-07-15 15:31:00 36.94 Irene [facility] Respiratory rate 2022-07-15 15:31:00 16 /min [facility] Body weight 2022-07-15 15:31:00 68.493 kg [facility] BMI 2022-07-15 15:31:00 28.53 kg/m2 [facility] Oxygen saturation in Arterial blood by Pulse oximetry 2022-07-15 15:31:00 99 /min [facility] Systolic blood pressure 2022-06-23 15:26:00 111 mm[Hg] [facility] Diastolic blood pressure 2022-06-23 15:26:00 75 mm[Hg] [facility] Heart rate 2022-06-23 15:26:00 108 /min [facility] Body temperature 2022-06-23 15:26:00 36.83 Irene [facility] Respiratory rate 2022-06-23 15:26:00 18 /min [facility] Body height 2022-06-23 15:26:00 154.9 cm [facility] Body weight 2022-06-23 15:26:00 71.385 kg [facility] BMI 2022-06-23 15:26:00 29.74 kg/m2 [facility] Oxygen saturation in Arterial blood by Pulse oximetry 2022-06-23 15:26:00 99 /min [facility] Systolic blood pressure 2022-05-05 22:05:00 126 mm[Hg] [facility] Diastolic blood pressure 2022-05-05 22:05:00 75 mm[Hg] [facility] Heart rate 2022-05-05 22:05:00 99 /min [facility] Respiratory rate 2022-05-05 22:05:00 16 /min [facility] Oxygen saturation in Arterial blood by Pulse oximetry 2022-05-05 22:05:00 99 /min [facility] Body temperature 2022-05-05 18:24:00 37.11 Irene [facility] Body height 2022-05-05 18:24:00 154.9 cm [facility] Body weight 2022-05-05 18:24:00 54.432 kg [facility] BMI 2022-05-05 18:24:00 22.67 kg/m2 [facility] Systolic blood pressure 2022-04-26 14:28:00 135 mm[Hg] [facility] Diastolic blood pressure 2022-04-26 14:28:00 95 mm[Hg] [facility] Heart rate 2022-04-26 14:28:00 93 /min [facility] Body temperature 2022-04-26 14:28:00 36.89 Irene [facility] Respiratory rate 2022-04-26 14:28:00 18 /min [facility] Body height 2022-04-26 14:28:00 154.9 cm [facility] Body weight 2022-04-26 14:28:00 54.432 kg [facility] BMI 2022-04-26 14:28:00 22.67 kg/m2 [facility] Oxygen saturation in Arterial blood by Pulse oximetry 2022-04-26 14:28:00 100 /min [facility] Systolic blood pressure 2022-04-26 00:21:00 151 mm[Hg] [facility] Diastolic blood pressure 2022-04-26 00:21:00 98 mm[Hg] [facility] Heart rate 2022-04-26 00:21:00 98 /min [facility] Body temperature 2022-04-26 00:21:00 36.72 Irene [facility] Respiratory rate 2022-04-26 00:21:00 18 /min [facility] Body height 2022-04-26 00:21:00 154.9 cm [facility] Body weight 2022-04-26 00:21:00 54.432 kg [facility] BMI 2022-04-26 00:21:00 22.67 kg/m2 [facility] Oxygen saturation in Arterial blood by Pulse oximetry 2022-04-26 00:21:00 100 /min [facility] Systolic blood pressure 2022-04-09 14:39:00 122 mm[Hg] [facility] Diastolic blood pressure 2022-04-09 14:39:00 84 mm[Hg] [facility] Heart rate 2022-04-09 14:39:00 96 /min [facility] Body height 2022-04-09 14:39:00 154.9 cm [facility] Body weight 2022-04-09 14:39:00 60.328 kg [facility] BMI 2022-04-09 14:39:00 25.13 kg/m2 [facility] Oxygen saturation in Arterial blood by Pulse oximetry 2022-04-09 14:39:00 98 /min [facility] Systolic blood pressure 2022-04-07 22:43:36 131 mm[Hg] [facility] Diastolic blood pressure 2022-04-07 22:43:36 83 mm[Hg] [facility] Heart rate 2022-04-07 22:43:36 113 /min [facility] Respiratory rate 2022-04-07 22:43:36 18 /min [facility] Oxygen saturation in Arterial blood by Pulse oximetry 2022-04-07 22:43:36 97 /min [facility] Body temperature 2022-04-07 19:41:00 37.17 Irene [facility] Body height 2022-04-07 19:41:00 154.9 cm [facility] Body weight 2022-04-07 19:41:00 60.328 kg [facility] BMI 2022-04-07 19:41:00 25.13 kg/m2 [facility] Systolic blood pressure 2022-03-24 19:00:00 125 mm[Hg] [facility] Diastolic blood pressure 2022-03-24 19:00:00 86 mm[Hg] [facility] Heart rate 2022-03-24 19:00:00 93 /min [facility] Respiratory rate 2022-03-24 19:00:00 17 /min [facility] Oxygen saturation in Arterial blood by Pulse oximetry 2022-03-24 19:00:00 97 /min [facility] Body temperature 2022-03-24 13:33:00 36.78 Irene [facility] Systolic blood pressure 2022-03-15 19:23:00 128 mm[Hg] [facility] Diastolic blood pressure 2022-03-15 19:23:00 89 mm[Hg] [facility] Heart rate 2022-03-15 19:23:00 104 /min [facility] Body weight 2022-03-15 19:23:00 60.328 kg [facility] BMI 2022-03-15 19:23:00 25.13 kg/m2 [facility] Oxygen saturation in Arterial blood by Pulse oximetry 2022-03-15 19:23:00 98 /min [facility] Systolic blood pressure 2022-03-15 15:02:00 115 mm[Hg] [facility] Diastolic blood pressure 2022-03-15 15:02:00 70 mm[Hg] [facility] Heart rate 2022-03-15 15:02:00 85 /min [facility] Respiratory rate 2022-03-15 15:02:00 20 /min [facility] Oxygen saturation in Arterial blood by Pulse oximetry 2022-03-15 15:02:00 99 /min [facility] Body temperature 2022-03-15 13:38:00 36.94 Irene [facility] Body height 2022-03-15 13:38:00 154.9 cm [facility] Body weight 2022-03-15 13:38:00 54.432 kg [facility] BMI 2022-03-15 13:38:00 22.67 kg/m2 [facility] Systolic blood pressure 2022-03-11 16:30:00 124 mm[Hg] [facility] Diastolic blood pressure 2022-03-11 16:30:00 88 mm[Hg] [facility] Heart rate 2022-03-11 16:30:00 93 /min [facility] Body temperature 2022-03-11 16:30:00 36.67 Irene [facility] Respiratory rate 2022-03-11 16:30:00 14 /min [facility] Oxygen saturation in Arterial blood by Pulse oximetry 2022-03-11 16:30:00 100 /min [facility] Body height 2022-03-11 14:19:00 154.9 cm [facility] Body weight 2022-03-11 14:19:00 58.968 kg [facility] BMI 2022-03-11 14:19:00 24.56 kg/m2 [facility] Systolic blood pressure 2022-02-27 14:14:00 140 mm[Hg] [facility] Diastolic blood pressure 2022-02-27 14:14:00 90 mm[Hg] [facility] Heart rate 2022-02-27 14:14:00 103 /min [facility] Body height 2022-02-27 14:14:00 154.9 cm [facility] Body weight 2022-02-27 14:14:00 59.194 kg [facility] BMI 2022-02-27 14:14:00 24.66 kg/m2 [facility] Oxygen saturation in Arterial blood by Pulse oximetry 2022-02-27 14:14:00 100 /min [facility] Systolic blood pressure 2022-02-27 13:19:00 131 mm[Hg] [facility] Diastolic blood pressure 2022-02-27 13:19:00 86 mm[Hg] [facility] Heart rate 2022-02-27 13:19:00 102 /min [facility] Body temperature 2022-02-27 13:19:00 36.33 Irene [facility] Body height 2022-02-27 13:19:00 154.9 cm [facility] Body weight 2022-02-27 13:19:00 58.968 kg [facility] BMI 2022-02-27 13:19:00 24.56 [facility] Arterial blood by Pulse oximetry 2022-02-27 13:19:00 99 /min [facility] Systolic blood pressure 2022-02-21 08:06:00 135 mm[Hg] [facility] Diastolic blood pressure 2022-02-21 08:06:00 97 mm[Hg] [facility] Heart rate 2022-02-21 08:06:00 98 /min [facility] Respiratory rate 2022-02-21 08:06:00 16 /min [facility] Oxygen saturation in Arterial blood by Pulse oximetry 2022-02-21 08:06:00 97 /min [facility] Body temperature 2022-02-21 06:16:00 36.94 Irene [facility] Body height 2022-02-21 06:16:00 154.9 cm [facility] Body weight 2022-02-21 06:16:00 60.963 kg [facility] BMI 2022-02-21 06:16:00 25.39 kg/m2 [facility] Systolic blood pressure 2022 20:08:00 136 mm[Hg] [facility] Diastolic blood pressure 2022 20:08:00 96 mm[Hg] [facility] Heart rate 2022 20:08:00 100 /min Un[facility] Respiratory rate 2022 20:08:00 20 /min [facility] Oxygen saturation in Arterial blood by Pulse oximetry 2022 20:08:00 98 /min [facility] Body temperature 2022 16:56:00 37.06 Irene [facility] Body weight 2022 16:56:00 54.432 kg [facility] BMI 2022 16:56:00 22.67 kg/m2 [facility] Systolic blood pressure 2022-02-05 14:31:00 128 mm[Hg] [facility] Diastolic blood pressure 2022-02-05 14:31:00 84 mm[Hg] [facility] Heart rate 2022-02-05 14:31:00 86 /min [facility] Body temperature 2022-02-05 14:31:00 37.89 [facility] Respiratory rate 2022-02-05 14:31:00 18 /min [facility] Body height 2022-02-05 14:31:00 154.9 cm [facility] Body weight 2022-02-05 14:31:00 54.432 kg [facility] BMI 2022-02-05 14:31:00 22.67 kg/m2 [facility] Oxygen saturation in Arterial blood by Pulse oximetry 2022-02-05 14:31:00 98 /min [facility] Systolic blood pressure 2022-01-18 14:50:00 144 mm[Hg] [facility] Diastolic blood pressure 2022-01-18 14:50:00 92 mm[Hg] [facility] Heart rate 2022-01-18 14:50:00 94 /min [facility] Respiratory rate 2022-01-18 14:50:00 20 /min [facility] Oxygen saturation in Arterial blood by Pulse oximetry 2022-01-18 14:50:00 99 /min [facility] Body weight 2022-01-18 10:18:00 54.432 kg [facility] BMI 2022-01-18 10:18:00 22.67 kg/m2 [facility] Body temperature 2022-01-18 10:15:00 36.72 [facility] Systolic blood pressure 2022-01-15 15:48:26 125 mm[Hg] [facility] Diastolic blood pressure 2022-01-15 15:48:26 85 mm[Hg] [facility] Heart rate 2022-01-15 15:48:26 95 /min [facility] Respiratory rate 2022-01-15 15:48:26 18 /min [facility] Oxygen saturation in Arterial blood by Pulse oximetry 2022-01-15 15:48:26 98 /min [facility] Body temperature 2022-01-15 13:32:00 37.11 [facility] Body height 2022-01-15 13:32:00 154.9 cm [facility] Body weight 2022-01-15 13:32:00 54.432 kg [facility] BMI 2022-01-15 13:32:00 22.67 kg/m2 [facility] Systolic blood pressure 2022-01-09 00:37:11 127 mm[Hg] [facility] Diastolic blood pressure 2022-01-09 00:37:11 90 mm[Hg] [facility] Heart rate 2022-01-09 00:37:11 94 /min [facility] Body temperature 2022-01-09 00:37:11 37.11 Irene [facility] Respiratory rate 2022-01-09 00:37:11 16 /min [facility] Oxygen saturation in Arterial blood by Pulse oximetry 2022-01-09 00:37:11 97 /min [facility] Body height 2022-01-08 23:03:00 154.9 cm [facility] Body weight 2022-01-08 23:03:00 58.06 kg [facility] BMI 2022-01-08 23:03:00 24.19 kg/m2 [facility] Systolic blood pressure 2021-12-12 18:00:00 126 mm[Hg] [facility] Diastolic blood pressure 2021-12-12 18:00:00 87 mm[Hg] [facility] Heart rate 2021-12-12 18:00:00 86 /min [facility] Body temperature 2021-12-12 18:00:00 36.89 Irene [facility] Respiratory rate 2021-12-12 18:00:00 18 /min [facility] Body height 2021-12-12 18:00:00 154.9 cm [facility] Body weight 2021-12-12 18:00:00 57.153 kg [facility] BMI 2021-12-12 18:00:00 23.81 kg/m2 [facility] Systolic blood pressure 2023-01-14 16:32:00 138 mm[Hg] [facility] Diastolic blood pressure 2023-01-14 16:32:00 84 mm[Hg] [facility] Heart rate 2023-01-14 16:32:00 67 /min [facility] Body temperature 2023-01-14 16:32:00 36.5 Irene [facility] Respiratory rate 2023-01-14 16:32:00 16 /min [facility] Oxygen saturation in Arterial blood by Pulse oximetry 2023-01-14 16:32:00 99 /min [place] [facility] Body height 2023-01-12 09:05:00 154.9 cm [facility] Body weight 2023-01-12 09:05:00 58.968 kg [facility] BMI 2023-01-12 09:05:00 24.56 kg/m2 [facility] Procedures Procedure Date / Time Performed Performing Clinician Source COMP. METABOLIC PANEL (79173) 2023-05-19 17:22:00 Tod Sellers [facility] CT ABDOMEN PELVIS W CONTRAST 2023-05-19 15:59:54 Tod Sellers [facility] LIPASE 2023-05-19 15:43:00 Tod Sellers [facility] CBC WITH DIFF 2023-05-19 15:43:00 [facility] 2023-05-19 15:32:00 Tod Sellers [facility] POCT TEST 2023-05-19 15:31:00 Anna Marie Sellers [facility] CONSENT/REFUSAL FOR DIAGNOSIS AND TREATMENT 2023-05-19 14:37:15 Doctor Unassigned, [place] [facility] PHOSPHORUS 2023-01-15 08:15:00 Benita Rockwell [facility] MAGNESIUM 2023-01-15 08:15:00 Benita Rockwell [facility] BASIC METABOLIC PANEL (NA, K, CL, CO2, GLUCOSE, BUN, CREATININE, CA) 2023-01-15 08:15:00 Benita Rockwell [facility] CBC WITH DIFF 2023-01-15 08:15:00 Benita Rockwell [facility] PROTHROMBIN TIME / INR 2023-01-15 08:15:00 Luis Rockwell [facility] MAGNESIUM 2023-01-14 10:14:00 Benita Rockwell [facility] PHOSPHORUS 2023-01-14 10:14:00 Benita Rockwell [facility] BASIC METABOLIC PANEL (NA, K, CL, CO2, GLUCOSE, BUN, CREATININE, CA) 2023-01-14 10:14:00 Benita Rockwell [facility] CBC WITH DIFF 2023-01-14 10:14:00 Benita Rockwell [facility] PHOSPHORUS 2023-01-14 10:14:00 Benita Rockwell [facility] MAGNESIUM 2023-01-14 10:14:00 Benita Rockwell [facility] BASIC METABOLIC PANEL (NA, K, CL, CO2, GLUCOSE, BUN, CREATININE, CA) 2023-01-14 10:14:00 Benita Rockwell [facility] CBC WITH DIFF 2023-01-14 10:14:00 Benita Rockwell [facility] CBC WITH DIFF 2023-01-13 10:45:00 [facility]EL (NA, K, CL, CO2, GLUCOSE, BUN, CREATININE, CA) 2023-01-13 10:45:00 Vaishnavi [facility] MAGNESIUM 2023-01-13 10:45:00 Vaishnavi, [facility] PHOSPHORUS 2023-01-13 10:45:00 Vaishnavi [facility] HEPATIC FUNCTION PANEL ([id number]) (ALB,T.PRO,BILI T,BU/BC,ALT,AST,ALK PHOS) 2023-01-13 10:45:00 Vaishnavi [facility] PHOSPHORUS 2023-01-13 10:45:00 Vaishnavi [facility] MAGNESIUM 2023-01-13 10:45:00 Vaishnavi, [facility] HEPATIC FUNCTION PANEL ([id number]) (ALB,T.PRO,BILI T,BU/BC,ALT,AST,ALK PHOS) 2023-01-13 10:45:00 Vaishnavi, [facility] BASIC METABOLIC PANEL (NA, K, CL, CO2, GLUCOSE, BUN, CREATININE, CA) 2023-01-13 10:45:00 Vaishnavi [facility] CBC WITH DIFF 2023-01-13 10:45:00 VaishnaviRodolfo dailey [facility] GLUCOSE BODY FLUID 2023-01-12 20:44:00 VaishnaviRodolfo [facility] BODY FLUID MANUAL DIFF 2023-01-12 20:44:00 VaishnaviClayton dailey [facility] T.PROTEIN BODY FLUID 2023-01-12 20:44:00 Vaishnavi [facility] ASPIRATE OR ABSCESS CULTURE(AEROBIC/ANAEROBIC ) 2023-01-12 20:44:00 Vaishnavi, [facility] TOTAL BODY FLUID 2023-01-12 20:44:00 Vaishnavi [facility] GLUCOSE BODY FLUID 2023-01-12 20:44:00 VaishnaviRodolfo dailey [facility] T.PROTEIN BODY FLUID 2023-01-12 20:44:00 Vaishnavi [facility] BODY FLUID DIRECT COUNT 2023-01-12 20:44:00 Kaycee Riggins [facility] ASPIRATE OR ABSCESS CULTURE(AEROBIC/ANAEROBIC ) 2023-01-12 20:44:00 Vaishnavi [facility] TOTAL BODY FLUID 2023-01-12 20:44:00 Vaishnavi, [facility] PROTHROMBIN TIME / INR 2023-01-12 08:13:00 VaishnaviClayton wade [facility] PROTHROMBIN TIME / INR 2023-01-12 08:13:00 VaishnaviClayton dailey [facility] COMP. METABOLIC PANEL ([id number]) 2023-01-12 03:49:00 Ciera García [facility] COMP. METABOLIC PANEL ([id number]) 2023-01-12 03:49:00 Ciera García [facility] CT ABDOMEN PELVIS W CONTRAST 2023-01-12 03:32:06 Ciera García [facility] CT ABDOMEN PELVIS W CONTRAST 2023-01-12 03:32:06 Ciera García [facility] POCT TEST 2023-01-12 03:02:00 Jessica García [facility] POCT TEST 2023-01-12 03:02:00 Jessica García [facility] URINALYSIS 2023-01-12 02:56:00 Kenneth García [facility] LIPASE 2023-01-12 02:56:[facility] 2023-01-12 02:56:00 Ciera García [facility] CBC WITH DIFF 2023-01-12 02:56:00 [facility] TUBE ORANGE 2023-01-12 02:56:00 Aroldo Siddiqui [facility] EXTRA TUBE LAV 2023-01-12 02:56:00 Aroldo Siddiqui [facility] LIPASE 2023-01-12 02:56:00 Kenneth García [facility] TOTAL BETA HCG ASSAY 2023-01-12 02:56:00 [facility] 2023-01-12 02:56:00 Kenneth García [facility] URINALYSIS 2023-01-12 02:56:00 Kenneth García [facility] EXTRA TUBE LAV 2023-01-12 02:56:00 Aroldo Siddiqui [facility] EXTRA TUBE ORANGE 2023-01-12 02:56:00 Aroldo Siddiqui [facility] CONSENT/REFUSAL FOR DIAGNOSIS AND TREATMENT 2023-01-12 01:46:10 Doctor Unassigned, [place] [facility] CONSENT/REFUSAL FOR DIAGNOSIS AND TREATMENT 2023-01-12 01:46:10 Doctor Unassigned, [place] [facility] ASSIGNMENT OF BENEFITS 2022-11-21 19:49:02 Docto r Unassigned, [place] [facility] ASSIGNMENT OF BENEFITS 2022-11-21 19:49:02 Docto r Unassigned, [place] [facility] CONSENT/REFUSAL FOR DIAGNOSIS AND TREATMENT 2022-11-21 18:03:25 Doctor Unassigned, [place] [facility] CONSENT/REFUSAL FOR DIAGNOSIS AND TREATMENT 2022-11-21 18:03:25 Doctor Unassigned, [place] [facility] EMERGENCY SERVICES AGREEMENTS AND AUTHORIZATIONS 2022-11-21 05:01:00 Doctor Unassigned, [place] [facility] CONSENT/REFUSAL FOR DIAGNOSIS AND TREATMENT 2022-09-05 13:42:02 Doctor Unassigned, [place] [facility] LIPASE 2022-07-31 23:13:00 [facility] 2022-07-31 23:13:00 Domenico Newell [facility] COMP. METABOLIC PANEL ([id number]) 2022-07-31 23:13:00 [facility] CBC WITH DIFF 2022-07-31 23:13:00 Osiris [facility] CONSENT/REFUSAL FOR DIAGNOSIS AND TREATMENT 2022-07-31 22:49:17 Doctor Unassigned, [place] [facility] XR ANKLE 3+ VW RIGHT 2022-07-15 16:00:00 Hi Kaur [facility] XR FOOT 3+ VW RIGHT 2022-07-15 16:00:00 Jenifer Kaur [facility] XR FOOT 3+ VW RIGHT 2022-07-15 16:00:00 Jenifer Kaur [facility] PATIENT FINANCIAL POLICY 2022-07-15 15:25:53 Doctor Unassigned, [place] [facility] POCT MOLECULAR STREP 2022-06-23 16:06:00 Unknown, Attignacio alexander [facility] ASSIGNMENT OF BENEFITS 2022-06-23 15:18:28 Nagito r Unassigned, [place] [facility] COMP. METABOLIC PANEL ([id number]) 2022-05-05 19:14:00 Karon Norton [facility] CBC WITH DIFF 2022-05-05 19:14:00 Karon Norton [facility] POCT TEST 2022-05-05 19:00:00 Lou Norton [facility] URINALYSIS 2022-05-05 18:58:00 Karon Norton [facility] CT ABDOMEN PELVIS WO CONTRAST 2022-04-26 15:11:00 Zion Bridges [facility] COMP. METABOLIC PANEL ([id number]) 2022-04-26 14:49:00 Zion Bridges [facility] CBC WITH DIFF 2022-04-26 14:49:00 Zion Bridges [facility] URINALYSIS 2022-04-26 14:49:[address] [facility] POCT TEST 2022-04-26 14:45:00 Jonn Bridges [facility] CONSENT/REFUSAL FOR DIAGNOSIS AND TREATMENT 2022-04-26 14:22:29 Doctor Unassigned, [place] [facility] POCT TEST 2022-04-26 01:22:00 Jonn Bridges [facility] ASSIGNMENT OF BENEFITS 2022-04-26 00:54:02 Docto r Unassigned, [place] [facility] URINALYSIS 2022-04-26 00:45:[address] [facility] CONSENT/REFUSAL FOR DIAGNOSIS AND TREATMENT 2022-04-26 00:16:47 Doctor Unassigned, [place] [facility] BASIC METABOLIC PANEL (NA, K, CL, CO2, GLUCOSE, BUN, CREATININE, CA) 2022-04-07 22:35:00 Olamide Garvin [facility] CBC WITH DIFF 2022-04-07 22:35:00 Olamide Garvin [facility] URINALYSIS 2022-04-07 21:36:00 Olamide Garvin [facility] URINE DRUG (IMMUNOASSAY) - COMPREHENSIVE DRUG SCREEN W/O REFLEX 2022-04-07 21:36:00 Olamide Garvin [facility] CONSENT/REFUSAL FOR DIAGNOSIS AND TREATMENT 2022-04-07 19:29:15 Doctor Unassigned, [place] [facility] POCT TEST 2022-03-24 14:07:00 Kellie Duncan [facility] CONSENT/REFUSAL FOR DIAGNOSIS AND TREATMENT 2022-03-24 13:27:20 Doctor Unassigned, [place] [facility] CT ABDOMEN PELVIS WO CONTRAST 2022-03-15 14:09:04 Anna Gould [facility] URINALYSIS 2022-03-15 13:53:00 [facility] 2022-03-15 13:52:00 Kimberly Gould [facility] CONSENT/REFUSAL FOR DIAGNOSIS AND TREATMENT 2022-03-15 13:37:02 Doctor Unassigned, [place] [facility] POCT TEST 2022-03-11 14:59:00 Redd Viveros [facility] FLU VACC ([id number]), 6 MO-64 YRS, .5ML, IM, QUAD (FLUCELVAX) 2022-02-27 13:34:55 Vijay Martinez [facility] NOTICE OF PRIVACY PRACTICES 2022-02-21 06:06:30 Doctor Unassigned, [place] [facility] CONSENT/REFUSAL FOR DIAGNOSIS AND TREATMENT 2022-02-21 06:03:41 Doctor Unassigned, [place] [facility] XR ANKLE <3 VW RIGHT 2022 17:56:42 Buster Hamilton [facility] CT ABDOMEN PELVIS W CONTRAST 2022 17:44:17 Maggie Hamilton [facility] CT TRAUMA CERVICAL SPINE WO CONTRAST 2022 17:43:49 Maggie Hamilton [facility] POCT TEST 2022 17:27:00 Zoie Hamilton ra [facility] COMP. METABOLIC PANEL ([id number]) 2022 17:17:00 Maggie Hamilton [facility] CBC WITH DIFF 2022 17:17:00 Maggie Hamilton [facility] CONSENT/REFUSAL FOR DIAGNOSIS AND TREATMENT 2022 16:53:13 Doctor Unassigned, [place] [facility] US GALL BLADDER 2022-01-18 12:31:09 Bernardo Levy [facility] US PELVIS COMPLETE WITH TRANSVAGINAL 2022-01-18 12:21:13 Melvin Zhao [facility] CT ABDOMEN PELVIS W CONTRAST 2022-01-18 11:20:50 Melvin Zhao [facility] POCT TEST 2022-01-18 10:57:00 Jayy Kennedy [facility] COVID-19 (ID NOW RAPID TESTING) 2022-01-18 10:57:00 Jayy Kennedy [facility] URINALYSIS 2022-01-18 10:47:00 Jayy Kennedy [facility] LIPASE 2022-01-18 10:29:00 Jayy Kennedy [facility] TEST, SERUM 2022-01-18 10:29:00 Jayy Kennedy [facility] HEPATIC FUNCTION PANEL ([id number]) (ALB,T.PRO,BILI T,BU/BC,ALT,AST,ALK PHOS) 2022-01-18 10:29:00 Jayy Kennedy [facility] BASIC METABOLIC PANEL (NA, K, CL, CO2, GLUCOSE, BUN, CREATININE, CA) 2022-01-18 10:29:00 Jayy Kennedy [facility] CBC WITH DIFF 2022-01-18 10:29:00 Jayy Kennedy [facility] CONSENT/REFUSAL FOR DIAGNOSIS AND TREATMENT 2022-01-18 10:13:31 Doctor Unassigned, [place] [facility] CT HEAD WO CONTRAST 2022-01-15 15:22:29 Maura Samayoa [facility] TEST, SERUM 2022-01-15 14:36:00 Hudson Samayoa [facility] BASIC METABOLIC PANEL (NA, K, CL, CO2, GLUCOSE, BUN, CREATININE, CA) 2022-01-15 14:36:00 Maura Samayoa [facility] CBC WITH DIFF 2022-01-15 14:36:00 Maura Samayoa [facility] CONSENT/REFUSAL FOR DIAGNOSIS AND TREATMENT 2022-01-15 13:28:12 Doctor Unassigned, [place] [facility] XR CERVICAL SPINE 4 VW 2022-01-09 00:29:16 Gabriela, Kassandra [facility] XR LUMBAR SPINE 4 VW 2022-01-09 00:29:16 Gabriela, And res [facility] XR SPINE THORACIC 3 VW 2022-01-09 00:29:16 [facility]22-[facility]-08 23:50:00 Humberto Ochoa [facility] CONSENT/REFUSAL FOR DIAGNOSIS AND TREATMENT 2022-01-08 22:51:08 Doctor Unassigned, [place] [facility] GALV ONLY - VAGINAL PATHOGENS BY NUCLEIC ACID TESTING 2021-12-12 18:37:00 Prasanna Vargas [facility] URINE CULTURE 2021-12-12 18:32:00 Prasanna Vargas [facility] POCT TEST 2021-12-12 18:31:00 Prasanna Vargas [facility] POCT URINALYSIS W/O SPECIFIC GRAVITY 2021-12-12 18:31:00 Prasanna Vargas [facility] Encounters Start Date/Time End Date/Time Encounter Type Admission Type Attending [facility] Care Facility Care Department Encounter ID Source 2021-03-14 03:14:31 Emergency [facility] [id number] [facility] 2021-03-13 20:05:20 Emergency [facility] [id number] [facility] 2021-03-13 12:48:28 Emergency [facility] [id number] [facility] 2021-03-13 02:43:51 Emergency [facility] [id number] [facility] 2021-03-13 00:27:09 Emergency [facility] [id number] [facility] 2021-03-12 22:10:36 Emergency [facility] [id number] [facility] 2021-03-12 20:04:05 [place] [facility] [place] [id number] [facility] 2021-03-12 15:25:05 Emergency [facility] [id number] [facility] 2021-03-12 11:43:36 Emergency [facility] [id number] [facility] 2021-03-12 07:41:37 Emergency [facility] [id number] [facility] 2021-03-12 05:43:47 Emergency [facility] [id number] [facility] 2021-03-12 03:43:41 Emergency [facility] [id number] [facility] 2021-03-12 01:31:27 Emergency [facility] [id number] [facility] 2021-03-12 00:56:44 Emergency X [facility] ERT [id number] [facility] 2021-03-12 00:56:31 Emergency [facility] [id number] [facility] 2021-03-11 17:47:02 Emergency [facility] [place] [id number] [facility] 2021-03-11 16:27:15 Emergency [facility] [id number] [facility] 2021-03-11 12:00:58 Emergency [facility] [id number] [facility] 2021-03-11 10:33:59 Emergency [facility] [place] [id number] [facility] 2021-03-11 01:36:52 Emergency [facility] [place] [id number] [facility] 2021-03-10 23:35:34 Emergency [facility] [id number] [facility] 2021-03-10 19:06:16 Emergency [facility] [id number] [facility] 2021-03-10 12:39:47 Emergency [facility] [id number] [facility] 2021-03-10 06:54:04 Emergency [facility] [id number] [facility] 2021-03-09 13:25:44 Outpatient P [facility] CHRIS [id number] [facility] 2021-03-09 13:08:01 Outpatient P [facility] CHRIS [id number] [facility] 2021-03-09 12:37:25 Outpatient P [facility] CHRIS [id number] [facility] 2021-03-09 11:51:20 Outpatient P [facility] CHRIS [id number] [facility] 2023-06-27 14:47:45 2023-06-27 14:47:45 Outpatient [facility] [id number] Willis Gil 2023-05-19 09:04:00 2023-05-19 12:20:00 Emergency X ADEANNA MARIE HUNTZOHRA [facility] ERT [id number] [facility] 2023-05-19 09:04:00 2023-05-19 12:20:00 Emergency AderiAnna Marie vargasil [facility] 1.2.840.114 350.1.13.10 4.2.7.2.686 [id number] [facility] 2023-04-05 00:00:00 2023-04-05 00:00:00 Patient Secure Prasanna Kang [facility] PROFESSIO [facility] 1.2.840.114 350.1.13.10 4.2.7.2.686 [id number] [facility] 2023-02-14 12:59:23 2023-02-14 12:59:23 Outpatient [facility] [id number] Willis Gil 2023-02-06 18:19:02 2023-02-06 18:19:02 Outpatient [facility] [id number] Willis Gil 2023-01-30 00:00:00 2023-01-30 00:00:00 Outpatient CHILO [facility] [id number] 2023-01-16 00:00:00 2023-01-16 00:00:00 Transition of Care Marlys Odell 1.2.840.114 350.1.13.10 4.2.7.2.686 [id number] [facility] 2023-01-11 21:06:00 2023-01-15 16:00:00 Inpatient Aj STEELE, OLIVER [facility] DAVID [id number] [facility] 2023-01-11 21:06:00 2023-01-15 16:00:00 Hospital Encounter Artur, Aroldo Vergara, Mirella Steele, [facility] 1.2.840.114 350.1.13.10 4.2.7.2.686 [id number] [facility] 2023-01-12 00:00:00 2023-01-12 00:00:00 Travel 1.2.840.1 [id number] 3.104.2.7 .[id number] .[id number] 350.1.13.10 4.2.7.3.698 [id number] [facility] 2023-01-11 00:00:00 2023-01-11 00:00:00 Travel 1.2.840.1 [id number] 3.104.2.7 .[id number] .8 [id number] 350.1.13.10 4.2.7.3.698 [id number] [facility] 2022-12-28 00:00:00 2022-12-28 00:00:00 Outpatient ERICKSON_R [facility] [id number] 2022-12-14 18:37:13 2022-12-14 18:37:[address] [facility] [id number] Willis Miugel Jeffery 2022-12-13 00:00:00 2022-12-13 00:00:00 Outpatient ERICKSON_R [facility] [id number] 2022-12-12 09:30:00 2022-12-12 09:30:00 Outpatient R PRASANNA VARGAS [facility] [id number] [facility] 2022-11-21 13:08:00 2022-11-21 16:45:00 Emergency MANJU BARRAGAN [facility] ERT [id number] [facility] 2022-11-21 13:08:00 2022-11-21 16:45:00 Emergency Zion Bridges Christopher 1.2.840.1 [id number] .[id number] [facility] 2022-11-21 00:00:00 2022-11-21 00:00:00 Travel 1.2.840.1 [id number] 3.104.2.7 .[id number] .8 1.2.840.114 350.1.13.10 4.2.7.3.698 [id number] [facility] 2022-11-18 10:08:00 2022-11-18 10:08:[address] [facility] [id number] Williszaira Gil 2022-11-15 09:40:00 2022-11-15 09:40:00 Outpatient R LIAN GREENE [facility] [id number] [facility] 2022-11-15 00:00:00 2022-11-15 00:00:00 Orders Only Palak Marrufo 1.2.840.1 [id number] 3.104.2.7 .3.227696 .[id number] [facility] 2022-11-09 15:26:18 2022-11-09 15:26:[address] [facility] [id number] Willis Gil 2022-11-06 13:00:00 2022-11-06 13:00:00 Outpatient R VIJAY MARTINEZ [facility] [id number] [facility] 2022-10-29 00:00:00 2022-10-29 00:00:00 Patient Secure Msg Lian Greene 1.2.840.1 [id number] 3.104.2.7 .3.806336 .8 [id number] [facility] 2022-10-29 00:00:00 2022-10-29 00:00:00 Patient Secure Msg Prasanna Vargas 1.2.840.1 33131.1.1 3.104.2.7 .3.692710 .8 [id number] [facility] 2022-10-03 00:00:00 2022-10-03 00:00:00 Letter (Out) Gurjit Lim [facility] 1..840.114 350.1.13.10 4.2.7.2.686 [id number] [facility] 2022-10-02 10:00:00 2022-10-02 10:00:00 Outpatient R CELINA FINNEY [facility] [id number] [facility] 2022-10-01 09:40:00 2022-10-01 09:40:00 Outpatient R REJI DÍAZ [facility] [id number] [facility] 2022-09-25 00:00:00 2022-09-25 00:00:00 Telephone Rad Serra [facility] NAL BUILDING 1..840.114 350.1.13.10 4.2.7.2.686 [id number] [facility] 2022-09-21 09:30:00 2022-09-21 09:30:00 Outpatient KASSANDRA MCKINLEY [facility] [id number] [facility] 2022-09-21 00:00:00 2022-09-21 00:00:00 [facility] 1..840.114 350.1.13.10 4.2.7.2.686 [id number] [id number] [facility] 2022-09-21 00:00:00 2022-09-21 00:00:00 [facility] 1.2.840.114 350.1.13.10 4.2.7.2.686 [id number] 092 [id number] [facility] 2022-09-21 00:00:00 2022-09-21 00:00:00 Letter (Out) [facility] MED[facility] OFF[facility] 1..840.114 350.1.13.10 4.2.7.2.686 [id number] [id number] [facility] 2022-09-14 09:30:00 2022-09-14 09:30:00 [facility] [id number] [facility] 2022-09-12 00:00:00 2022-09-12 00:00:00 Telephone Lexy [facility] MED[facility] OFF[facility] BU[facility] 1.840.114 350.1.13.10 4.2.7.2.686 [id number] [id number] [facility] 2022-09-07 11:30:00 2022-09-07 11:30:00 Outpatient [facility] [id number] [facility] 2022-09-05 08:44:00 2022-09-05 13:15:00 Emergency X GUTIERREZKENNEDY [facility] ERT [id number] [facility] 2022-09-05 08:44:00 2022-09-05 13:15:00 Emergency GutierrezTammie lopezise [facility] 1..840.114 350.1.13.10 4.2.7.2.686 [id number] [facility] 2022-09-04 00:00:00 2022-09-04 00:00:00 Telephone Kassandra Pugh [facility] 1.2.840.114 350.1.13.10 4.2.7.2.686 [id number] [id number] [facility] 2022-09-04 00:00:00 2022-09-04 00:00:00 Patient Secure Msg Rad Serra [facility] PROFESSIO NAL BUILDING 1.2.840.114 350.1.13.10 4.2.7.2.686 [id number] [facility] 2022-08-29 09:00:00 2022-08-29 09:00:00 Outpatient R CELINA FINNEY [facility] [id number] [facility] 2022-08-14 00:00:00 2022-08-14 00:00:00 Patient Secure Msg Doctor Unassigned, [place] [facility] 1.2.840.114 350.1.13.10 4.2.7.2.686 [id number] 092 [id number] [facility] 2022-07-31 17:56:00 2022-07-31 20:30:00 Emergency X [facility] [id number] [facility] 2022-07-31 17:56:00 2022-07-31 20:30:00 Emergency Hillman, Manju [facility] 1..840.114 350.1.13.10 4.2.7.2.686 [id number] [id number] [facility] 2022-07-15 09:46:45 2022-07-15 23:59:00 Outpatient R CARI KAUR [facility] [id number] [facility] 2022-07-15 09:46:45 2022-07-15 23:59:00 Hospital Encounter Leanne, Cari [facility] MED[facility] OFF[facility] BU[facility] 1..840.114 350.1.13.10 4.2.7.2.686 [id number] [facility] 2022-07-15 09:46:45 2022-07-15 23:59:00 Hospital Encounter Cari Kaur [facility] MED[facility] OFFICE BUILDING 1.84.114 350.1.13.10 4.2.7.2.686 [id number] [facility] 2022-07-15 09:20:00 2022-07-15 10:29:17 Urgent Care Cari Kaur Unknown, Attending [facility] MEDICAL OFFICE BUILDING 1.840.114 350.1.13.10 4.2.7.2.686 [id number] [facility] 2022-07-15 00:00:00 2022-07-15 00:00:00 Orders Only Doctor Unassigned, [place] [facility] 1.840.114 350.1.13.10 4.2.7.2.686 [id number] [facility] 2022-06-23 09:20:00 2022-06-23 10:27:39 Outpatient R PAUL SAMAYOA [facility] [id number] [facility] 2022-06-23 09:20:00 2022-06-23 10:27:39 Urgent Care Jazmyn Nasirdilmazehra Unknown, Attending [facility] MEDICAL OFFICE BUILDING 1.2840.114 350.1.13.10 4.2.7.2.686 [id number] [facility] 2022-06-23 00:00:00 2022-06-23 00:00:00 Orders Only Doctor Unassigned, [place] [facility] 1.2840.114 350.1.13.10 4.2.7.2.686 [id number] [facility] 2022-06-15 09:40:00 2022-06-15 09:40:00 Outpatient R LIAN GREENE [facility] [id number] [facility] 2022-05-29 08:00:00 2022-05-29 08:00:00 Outpatient R KASSANDRA PUGH [facility] [id number] [facility] 2022-05-15 09:20:00 2022-05-15 09:20:00 Outpatient R BENNETT MILLER [facility] [id number] [facility] 2022-05-11 09:30:00 2022-05-11 09:30:00 Outpatient KASSANDRA MCKINLEY [facility] [id number] [facility] 2022-05-05 12:26:00 2022-05-05 16:11:00 Emergency X KARON NORTON [facility] ERT [id number] [facility] 2022-05-05 12:26:00 2022-05-05 16:11:00 Emergency Karon Norton [facility] 1..840.114 350.1.13.10 4.2.7.2.686 [id number] [facility] 2022-05-01 00:00:00 2022-05-01 00:00:00 Outpatient R PRASANNA VARGAS [facility] [id number] [facility] 2022-04-26 08:30:00 2022-04-26 09:59:00 Emergency X ZION BRIDGES [facility] ERT [id number] [facility] 2022-04-26 08:30:00 2022-04-26 09:59:00 Emergency Zion Bridges [facility] 1.2.840.114 350.1.13.10 4.2.7.2.686 [id number] [facility] 2022-04-25 18:23:00 2022-04-25 21:55:00 Emergency X KENNEDY WHITLEY [facility] ERT [id number] [facility] 2022-04-25 18:23:00 2022-04-25 21:55:00 Emergency Kennedy Whitley [facility] 1.2840.114 350.1.13.10 4.2.7.2.686 [id number] [facility] 2022-04-19 10:00:00 2022-04-19 10:00:00 Outpatient LIAN LABOY [facility] [id number] [facility] 2022-04-12 00:00:00 2022-04-12 00:00:00 Telephone Lexy [facility] TOÑO?[facility] MEDICAL OFFICE BUILDING 1.2840.114 350.1.13.10 4.2.7.2.686 [id number] [facility] 2022-04-11 00:00:00 2022-04-11 00:00:00 Telephone Darrion Wyatt [facility] TOÑO?[facility] MED[facility] OFF[facility] BU[facility] 1.284.114 350.1.13.10 4.2.7.2.686 [id number] [id number] [facility] 2022-04-10 00:00:00 2022-04-10 00:00:00 Telephone Pugh [facility] TOÑO?[facility] MEDICAL OFFICE BUILDING 1.284.114 350.1.13.10 4.2.7.2.686 [id number] [facility] 2022-04-09 09:30:00 2022-04-09 09:30:00 Office [facility] MED[facility] OFF[facility] BU[facility] 1.2840.114 350.1.13.10 4.2.7.2.686 [id number] 092 [id number] [facility] 2022-04-09 09:30:00 2022-04-09 09:21:44 Outpatient Farzana PUGH KASSANDRA [facility] [id number] [facility] 2022-04-07 13:41:00 2022-04-07 17:49:00 Emergency X OLAMIDE GARVIN [facility] ERT [id number] [facility] 2022-04-07 13:41:00 2022-04-07 17:49:00 Emergency DreOlamide stanley G [facility] 1..840.114 350.1.13.10 4.2.7.2.686 [id number] [facility] 2022-04-07 00:00:00 2022-04-07 00:00:00 Patient Secure Msg Doctor Unassigned, [place] [facility] 1..840.114 350.1.13.10 4.2.7.2.686 [id number] [facility] 2022-04-04 00:00:00 2022-04-04 00:00:00 Telephone Lexy Kassandra [facility] MEDICAL OFFICE BUILDING 1..840.114 350.1.13.10 4.2.7.2.686 [id number] [id number] [facility] 2022-04-02 10:30:00 2022-04-02 10:30:00 Outpatient KASSANDRA MCKINLEY [facility] [id number] [facility] 2022-03-28 00:00:00 2022-03-28 00:00:00 Patient Secure Msg Doctor Unassigned, [place] [facility] MEDICAL OFFICE BUILDING 1..840.114 350.1.13.10 4.2.7.2.686 [id number] [facility] 2022-03-24 07:35:00 2022-03-24 13:11:00 Emergency X FELIZ, KELLIE [facility] ERT [id number] [facility] 2022-03-24 07:35:00 2022-03-24 13:11:00 Emergency Kellie Duncan E [facility] 1.2.840.114 350.1.13.10 4.2.7.2.686 [id number] [id number] [facility] 2022-03-23 10:30:00 2022-03-23 10:30:00 Outpatient KASSANDRA MCKINLEY [facility] [id number] [facility] 2022-03-23 00:00:00 2022-03-23 00:00:00 Telephone Darrion Wyatt [facility] TOÑO?[facility] MEDICAL OFFICE BUILDING 1.2.840.114 350.1.13.10 4.2.7.2.686 [id number] 092 [id number] [facility] 2022-03-22 00:00:00 2022-03-22 00:00:00 Telephone Darrion Wyatt [facility] TOÑO?[facility] 1.2.840.114 350.1.13.10 4.2.7.2.686 [id number] 092 [id number] [facility] 2022-03-22 00:00:00 2022-03-22 00:00:00 Refill Darrion Wyatt [facility] TOÑO?[facility] MED[facility] OFF[facility] BUILD[facility] 1.2.840.114 350.1.13.10 4.2.7.2.686 [id number] 092 [id number] [facility] 2022-03-21 00:00:00 2022-03-21 00:00:00 Telephone Darrion Wyatt [facility] TOÑO?[facility] MED[facility] OFF[facility] BUILD[facility] 1.2.840.114 350.1.13.10 4.2.7.2.686 [id number] 092 [id number] [facility] 2022-03-15 14:00:00 2022-03-15 14:36:19 Outpatient R REJI DÍAZ [facility] [id number] [facility] 2022-03-15 14:00:00 2022-03-15 14:36:19 [facility] 1..840.114 350.1.13.10 4.2.7.2.686 [id number] [id number] [facility] 2022-03-15 08:40:00 2022-03-15 10:47:00 Emergency X [facility] [id number] [facility] 2022-03-15 08:40:00 2022-03-15 10:47:00 Emergency Bryanna [facility] 1..840.114 350.1.13.10 4.2.7.2.686 [id number] [facility] 2022-03-14 10:30:00 2022-03-14 10:30:00 Outpatient R PRASANNA VARGAS [facility] [id number] [facility] 2022-03-11 09:22:00 2022-03-11 12:15:00 Emergency X ANGELICA VIVEROS [facility] ERT [id number] [facility] 2022-03-11 09:22:00 2022-03-11 12:15:00 Emergency Angelica Viveros [facility] 1..840.114 350.1.13.10 4.2.7.2.686 [id number] [facility] 2022-03-06 08:30:00 2022-03-06 08:30:00 Outpatient R KASSANDRA PUGH [facility] [id number] [facility] 2022-03-02 00:00:00 2022-03-02 00:00:00 Telephone Darrion Wyatt [facility] 1..840.114 350.1.13.10 4.2.7.2.686 [id number] 092 [id number] [facility] 2022-02-28 00:00:00 2022-02-28 00:00:00 Patient Secure Msg Doctor Unassigned, [place] [facility] 1.2.840.114 350.1.13.10 4.2.7.2.686 [id number] [id number] [facility] 2022-02-27 09:30:00 2022-02-27 09:49:42 Outpatient R LEXY KASSANDRA [facility] [id number] [facility] 2022-02-27 09:30:00 2022-02-27 09:49:42 [facility] MED[facility] OFF[facility] BUILD[facility] 1..840.114 350.1.13.10 4.2.7.2.686 [id number] 092 [id number] [facility] 2022-02-27 08:00:00 2022-02-27 09:12:17 Office Visit Víctorkassandra Vijay [facility] MEDICAL OFFICE BUILDING 1..840.114 350.1.13.10 4.2.7.2.686 [id number] [facility] 2022-02-26 11:30:00 2022-02-26 11:30:00 Outpatient R KASSANDRA PUGH [facility] [id number] [facility] 2022-02-21 01:20:00 2022-02-21 03:44:00 Emergency X MAGGIE HAMILTON [facility] ERT [id number] [facility] 2022-02-21 01:20:00 2022-02-21 03:44:00 Emergency Maggie Hamilton [facility] 1..840.114 350.1.13.10 4.2.7.2.686 [id number] [id number] [facility] 2022-02-19 00:00:00 2022-02-19 00:00:00 Patient Secure Msg Kendal Zamudio [facility] MEDICAL OFFICE BUILDING 1.2840.114 350.1.13.10 4.2.7.2.686 [id number] [id number] [facility] 2022-02-19 00:00:00 2022-02-19 00:00:00 Patient Secure Msg Kendal Zamudio [facility] MEDICAL OFFICE BUILDING 1.2840.114 350.1.13.10 4.2.7.2.686 [id number] [id number] [facility] 2022-02-19 00:00:00 2022-02-19 00:00:00 Patient Secure Msg BradfordMoiséspaulo Chen [facility] 1.2840.114 350.1.13.10 4.2.7.2.686 [id number] [facility] 2022-02-19 00:00:00 2022-02-19 00:00:00 Patient Secure Msg Ross Salazar Farzana [facility] 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 [employer] 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 [facility] 1.2840.114 350.1.13.10 4.2.7.2.686 [id number] [facility] 2022 11:58:00 2022 15:13:00 Emergency X MAGGIE HAMILTON [facility] ERT [id number] [facility] 2022 11:58:00 2022 15:13:00 Emergency Maggie Hamilton [facility] 1.20.114 350.1.13.10 4.2.7.2.686 [id number] 084 [id number] [facility] 2022-02-09 09:00:00 2022-02-09 09:00:00 Outpatient R CRICKET TAYLOR [facility] [id number] [facility] 2022-02-06 10:00:00 2022-02-06 10:00:00 Outpatient Farzana VÍCTORKassandra VIJAY [facility] [id number] [facility] 2022-02-05 09:45:00 2022-02-05 10:05:00 Nurse Visit Nurse, F[facility] 1..840.114 350.1.13.10 4.2.7.2.686 [id number] [facility] 2022-02-05 09:20:00 2022-02-05 09:20:00 Outpatient Farzana OLIVERNOELLEFLACO [facility] [id number] [facility] 2022-01-26 00:00:00 2022-01-26 00:00:00 Case Management Prasanna [facility] 1..840.114 350.1.13.10 4.2.7.2.686 [id number] [facility] 2022-01-22 11:00:00 2022-01-22 11:00:00 Outpatient Farzana VÍCTORVIJAY Cannon [facility] [id number] [facility] 2022-01-19 00:00:00 2022-01-19 00:00:00 Patient Secure Msg Doctor Unassigned, [place] [facility] 1.840.114 350.1.13.10 4.2.7.2.686 [id number] [facility] 2022-01-18 05:17:00 2022-01-18 10:25:00 Emergency BERNARDO WALTON [facility] ERT [id number] [facility] 2022-01-18 05:17:00 2022-01-18 10:25:00 Emergency Jayy Kennedy [facility] 1.840.114 350.1.13.10 4.2.7.2.686 [id number] [facility] 2022-01-15 08:34:00 2022-01-15 10:49:00 Emergency X JESSICAKAMARIMAURA [facility] ERT [id number] [facility] 2022-01-15 08:34:00 2022-01-15 10:49:00 Emergency Larry Perez Maura Samayoa [facility] 1..840.114 350.1.13.10 4.2.7.2.686 [id number] [id number] [facility] 2022-01-08 18:04:00 2022-01-08 20:09:00 Emergency X HUMBERTO OCHOA [facility] ERT [id number] [facility] 2022-01-08 18:04:00 2022-01-08 20:09:00 Emergency Johnson Ochoas [facility] 1.2.840.114 350.1.13.10 4.2.7.2.686 [id number] [facility] 2021-12-12 13:30:00 2021-12-12 13:40:21 Outpatient Farzana CARNES [facility] [id number] [facility] 2021-12-12 13:30:00 2021-12-12 13:40:21 Office Visit Prasanna Vargas [facility] PROFESSIO [facility] 1..840.114 350.1.13.10 4.2.7.2.686 [id number] [facility] 2021-12-12 13:30:00 2021-12-12 13:40:21 Outpatient Farzana CARNES [facility] [id number] [facility] 2021-12-12 13:30:00 2021-12-12 13:40:21 Outpatient Farzana CARNES [facility] [id number] [facility] 2021-12-11 16:15:00 2021-12-11 16:15:00 Outpatient R ADE BRADFORD [facility] [id number] [facility] 2021-12-05 14:15:00 2021-12-05 14:15:00 Outpatient Farzana AVANIROMULO CURTIS [facility] [id number] [facility] 2021-11-28 08:49:00 2021-11-28 11:02:00 Emergency X KARON NORTON [facility] ERT [id number] [facility] 2021-11-28 08:49:00 2021-11-28 11:02:00 Emergency Karon Norton [facility] 1.2.840.114 350.1.13.10 4.2.7.2.686 [id number] [facility] 2021-11-28 00:00:00 2021-11-28 00:00:00 Patient Secure Msg Cricket Taylor [facility] SENIOR [employer] 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 [facility] 1.2.840.114 350.1.13.10 4.2.7.2.686 [id number] [facility] 2021-11-24 18:14:00 2021-11-24 21:04:00 Emergency X Kaycee MÉNDEZ [facility] ERT [id number] [facility] 2021-11-24 18:14:00 2021-11-24 21:04:00 Emergency Dev Kaycee Sharlene [facility] 1.2.840.114 350.1.13.10 4.2.7.2.686 [id number] [id number] [facility] 2021-11-24 00:00:00 2021-11-24 00:00:00 Telephone Cricket Taylor [facility] SENIOR JAVA 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 [facility] 1.2.840.114 350.1.13.10 4.2.7.2.686 [id number] [facility] 2021-11-20 00:00:00 2021-11-20 00:00:00 Patient Secure Kendal Medrano [facility] MEDICAL OFFICE BUILDING 1.2.840.114 350.1.13.10 4.2.7.2.686 [id number] [facility] 2021-11-19 00:00:00 2021-11-19 00:00:00 Letter (Out) Leslie Santacruz [facility] 1.840.114 350.1.13.10 4.2.7.2.686 [id number] [facility] 2021-11-18 10:41:40 2021-11-18 23:59:[address] [facility] [id number] [facility] 2021-11-18 10:41:40 2021-11-18 23:59:00 Hospital Encounter Oliver [facility] 1.840.114 350.1.13.10 4.2.7.2.686 [id number] [facility] 2021-11-18 10:20:00 2021-11-18 10:53:20 [facility] 1..840.114 350.1.13.10 4.2.7.2.686 [id number] [facility] 2021-11-09 10:30:00 2021-11-09 10:30:00 Outpatient CELINA STONE [facility] [id number] [facility] 2021-10-25 13:20:00 2021-10-25 13:20:00 Urgent Care Ileana Medrano [facility] 1.2.840.114 350.1.13.10 4.2.7.2.686 [id number] [facility] 2021-10-25 13:20:00 2021-10-25 12:47:59 Outpatient ILEANA CASE [facility] [id number] [facility] 2021-10-25 00:00:00 2021-10-25 00:00:00 Patient Secure Msg Vijay Martinez [facility]O?[facility] 1.2.840.114 350.1.13.10 4.2.7.2.686 [id number] [facility] 2021-10-25 00:00:00 2021-10-25 00:00:00 Telephone Vijay Martinez [facility] 1.2.840.114 350.1.13.10 4.2.7.2.686 [id number] [facility] 2021-10-25 00:00:00 2021-10-25 00:00:00 Telephone Provider, Filippo [facility] TO[facility]O?[facility] 1.2.840.114 350.1.13.10 4.2.7.2.686 [id number] [facility] 2021-10-25 00:00:00 2021-10-25 00:00:00 Telephone Nurse, [facility] 1.2.840.114 350.1.13.10 4.2.7.2.686 [id number] [facility] 2021-10-24 10:15:00 2021-10-24 10:15:00 Outpatient ROMULO BROWNING [facility] [id number] [facility] 2021-10-24 10:15:00 2021-10-24 10:15:00 Outpatient ROMULO BROWNING [facility] [id number] [facility] 2021-10-11 09:30:00 2021-10-11 09:30:00 Outpatient Farzana BILLINGSLEYJESSICAROMULO [facility] [id number] [facility] 2021-10-10 13:30:00 2021-10-10 13:30:00 Outpatient R PRASANNA VARGAS [facility] [id number] [facility] 2021-10-10 13:30:00 2021-10-10 13:30:00 Outpatient R PRASANNA VARGAS [facility] [id number] [facility] 2021-10-10 13:30:00 2021-10-10 13:30:00 Outpatient R PRASANNA VARGAS [facility] [id number] [facility] 2021-10-10 13:30:00 2021-10-10 13:30:00 Outpatient R PRASANNA VARGAS [facility] [id number] [facility] 2021-10-10 13:30:00 2021-10-10 13:30:00 Outpatient R PRASANNA VARGAS [facility] [id number] [facility] 2021-10-10 13:30:00 2021-10-10 13:30:00 Outpatient R PRASANNA VARGAS [facility] [id number] [facility] 2021-10-10 13:30:00 2021-10-10 13:30:00 Outpatient R PRASANNA VARGAS [facility] [id number] [facility] 2021-10-05 00:00:00 2021-10-05 00:00:00 Patient [facility] OFF[facility] BUILD[facility] 1.2.840.114 350.1.13.10 4.2.7.2.686 [id number] [facility] 2021-10-05 00:00:00 2021-10-05 00:00:00 Patient Secure Msg Kendal Zamudio [facility] MEDICAL OFFICE BUILDING 1.2.840.114 350.1.13.10 4.2.7.2.686 [id number] [facility] 2021-10-04 00:00:00 2021-10-04 00:00:00 Pre Visit Outreach Melia Rodriguez 1.2.840.114 350.1.13.10 4.2.7.2.686 [id number] [facility] 2021-09-28 13:30:00 2021-09-28 13:45:00 Office Visit OnurRichelle daileyCelina Kassandra [facility] [place] 1.2.840.114 350.1.13.10 4.2.7.2.686 [id number] [facility] 2021-09-28 13:30:00 2021-09-28 13:30:00 Outpatient CELINA STONE [facility] [id number] [facility] 2021-09-28 13:30:00 2021-09-28 13:30:00 Outpatient CELINA STONE [facility] [id number] [facility] 2021-09-28 00:00:00 2021-09-28 00:00:00 Patient Secure Msg Richelle Mixonherine Kassandra [facility] [place] [place] 1.2.840.114 350.1.13.10 4.2.7.2.686 [id number] [facility] 2021-09-27 14:00:00 2021-09-27 14:00:00 Outpatient TETO BRANTLEY [facility] [id number] [facility] 2021-09-27 09:30:00 2021-09-27 09:30:00 Outpatient DANIA RICARDO [facility] [id number] [facility] 2021-09-27 09:30:00 2021-09-27 09:30:00 Outpatient DANIA RICARDO [facility] [id number] [facility] 2021-09-27 09:30:00 2021-09-27 09:30:00 Outpatient R DANIA PENNINGTON [facility] [id number] [facility] 2021-09-26 10:45:00 2021-09-26 10:45:00 Outpatient R CRICKET TAYLOR [facility] [id number] [facility] 2021-09-26 10:45:00 2021-09-26 10:45:00 Outpatient R CRICKET TAYLOR [facility] [id number] [facility] 2021-09-26 00:00:00 2021-09-26 00:00:00 Patient Secure [facility] MED[facility] OFF[facility] BU[facility] 1.2.840.114 350.1.13.10 4.2.7.2.686 [id number] [facility] 2021-09-26 00:00:00 2021-09-26 00:00:00 Patient Secure Vijay [facility] MED[facility] OFF[facility] BUILDING 1.2.840.114 350.1.13.10 4.2.7.2.686 [id number] [facility] 2021-09-25 10:20:00 2021-09-25 11:10:42 Urgent Care Flaco Boyd [facility] MEDICAL OFFICE BUILDING 1.2.840.114 350.1.13.10 4.2.7.2.686 [id number] [facility] 2021-09-25 10:20:00 2021-09-25 11:10:42 Outpatient R FLACO BOYD [facility] [id number] [facility] 2021-09-25 10:20:00 2021-09-25 10:20:00 Outpatient R FLACO BOYD [facility] [id number] [facility] 2021-09-25 10:00:00 2021-09-25 10:00:00 Outpatient R ALICIA PRASANNA [facility] [id number] [facility] 2021-09-25 00:00:00 2021-09-25 00:00:00 Telephone [facility] MED[facility] OFFICE BUILDING 1.2840.114 350.1.13.10 4.2.7.2.686 [id number] [facility] 2021-09-25 00:00:00 2021-09-25 00:00:00 Patient Secure Msg Prasanna Vargas [facility] 1.2840.114 350.1.13.10 4.2.7.2.686 [id number] [facility] 2021-09-25 00:00:00 2021-09-25 00:00:00 Telephone Cricket Taylor [facility] 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 1.2840.114 350.1.13.10 4.2.7.2.686 [id number] [facility] 2021-09-25 00:00:00 2021-09-25 00:00:00 Telephone Celina Mixon [facility] 1.2840.114 350.1.13.10 4.2.7.2.686 [id number] [facility] 2021-09-15 00:00:00 2021-09-15 00:00:00 Patient Secure Msg Kendal Zamudio [facility] MEDICAL OFFICE BUILDING 1.2840.114 350.1.13.10 4.2.7.2.686 [id number] [id number] [facility] 2021-09-15 00:00:00 2021-09-15 00:00:00 Patient Secure Msg Kendal Zamudio [facility] OFF[facility] BUILD[facility] 1.84114 350.1.13.10 4.2.7.2.686 [id number] [id number] [facility] 2021-09-15 00:00:00 2021-09-15 00:00:00 Patient Secure Msg Kendal Zamudio [facility] MEDICAL OFFICE BUILDING 1.114 350.1.13.10 4.2.7.2.686 [id number] [id number] [facility] 2021-09-14 00:00:00 2021-09-14 00:00:00 Patient Secure Msg Vijay [facility] OFFICE BUILDING 1.84114 350.1.13.10 4.2.7.2.686 [id number] [id number] [facility] 2021-09-14 00:00:00 2021-09-14 00:00:00 Patient Secure Msg Doctor Unassigned, [place] [facility] MEDICAL OFFICE BUILDING 1.84114 350.1.13.10 4.2.7.2.686 [id number] [id number] [facility] 2021-09-12 10:30:00 2021-09-12 10:30:00 Outpatient CELINA STONE [facility] [id number] [facility] 2021-09-12 10:30:00 2021-09-12 10:30:00 Outpatient CELINA STONE [facility] [id number] [facility] 2021-09-12 00:00:00 2021-09-12 00:00:00 Patient Secure Msg Daniel Dsouza [facility] 1.114 350.1.13.10 4.2.7.2.686 [id number] [facility] 2021-09-12 00:00:00 2021-09-12 00:00:00 Orders Only Doctor Unassigned, [place] [facility] 1.2.840.114 350.1.13.10 4.2.7.2.686 [id number] [facility] 2021-09-12 00:00:00 2021-09-12 00:00:00 Patient Secure Msg Juan [facility] MEDICAL OFFICE BUILDING 1.2840.114 350.1.13.10 4.2.7.2.686 [id number] [id number] [facility] 2021-09-05 00:00:00 2021-09-05 00:00:00 Patient Secure Msg Juan [facility] MEDICAL OFFICE BUILDING 1.2840.114 350.1.13.10 4.2.7.2.686 [id number] [id number] [facility] 2021-09-05 00:00:00 2021-09-05 00:00:00 Patient Secure Msg Doctor Unassigned, [place] [facility] 1.2840.114 350.1.13.10 4.2.7.2.686 [id number] [facility] 2021-09-05 00:00:00 2021-09-05 00:00:00 Patient Secure Msg Doctor Unassigned, [place] [facility] 1.2840.114 350.1.13.10 4.2.7.2.686 [id number] [facility] 2021-09-04 00:00:00 2021-09-04 00:00:00 Patient Secure Msg Juan [facility] MEDICAL OFFICE BUILDING 1.2840.114 350.1.13.10 4.2.7.2.686 [id number] [id number] [facility] 2021-08-28 00:00:00 2021-08-28 00:00:00 Patient Secure Msg Harsh Charles [facility] 1.2.840.114 350.1.13.10 4.2.7.2.686 [id number] [facility] 2021-08-25 00:00:00 2021-08-25 00:00:00 Telephone Dania Pennington Ez [facility] TO[facility]O?[facility] MED[facility] OFF[facility] BU[facility] 1.2.840.114 350.1.13.10 4.2.7.2.686 [id number] [facility] 2021-08-25 00:00:00 2021-08-25 00:00:00 Patient Secure Msg Vijay Martinez [facility] TO[facility]O?[facility] MEDICAL OFF[facility] BUILDING 1.2840.114 350.1.13.10 4.2.7.2.686 [id number] [id number] [facility] 2021-08-24 00:00:00 2021-08-24 00:00:00 Telephone Vijay Martinez [facility] MED[facility] OFF[facility] BUILDING 1.2840.114 350.1.13.10 4.2.7.2.686 [id number] [id number] [facility] 2021-08-24 00:00:00 2021-08-24 00:00:00 Patient Secure Msg Vijay Martinez [facility] TO[facility]O?[facility] MED[facility] OFF[facility] BUILD[facility] 1.2840.114 350.1.13.10 4.2.7.2.686 [id number] [id number] [facility] 2021-08-23 00:00:00 2021-08-23 00:00:00 Patient Secure Msg Vijay Martinez [facility] MEDICAL OFFICE BUILDING 1.2.840.114 350.1.13.10 4.2.7.2.686 [id number] 044 [id number] [facility] 2021-08-23 00:00:00 2021-08-23 00:00:00 Telephone Vijay Martinez [facility] TO[facility]O?[facility] OFFICE BUILDING 1.840.114 350.1.13.10 4.2.7.2.686 [id number] [id number] [facility] 2021-08-22 00:00:00 2021-08-22 00:00:00 Telephone Vijay Martinez [facility] TO[facility]O?[facility] MEDICAL OFF[facility] BUILDING 1.84.114 350.1.13.10 4.2.7.2.686 [id number] [id number] [facility] 2021-08-22 00:00:00 2021-08-22 00:00:00 Patient Secure Msg Hallie Wilkinson [facility] TO[facility]O?[facility] MEDICAL OFF[facility] BUILDING 1.840.114 350.1.13.10 4.2.7.2.686 [id number] [id number] [facility] 2021-08-18 00:00:00 2021-08-18 00:00:00 Telephone Vijay Martinez [facility] TO[facility]O?[facility] OFFICE BUILDING 1.84.114 350.1.13.10 4.2.7.2.686 [id number] 044 [id number] [facility] 2021-08-17 09:00:00 2021-08-17 09:00:00 Outpatient CELINA STONE [facility] [id number] [facility] 2021-08-17 09:00:00 2021-08-17 09:00:00 Outpatient CELINA STONE [facility] [id number] [facility] 2021-08-17 00:00:00 2021-08-17 00:00:00 Patient Secure Msg Prasanna Vargas [facility] BUILDING 1.840.114 350.1.13.10 4.2.7.2.686 [id number] [facility] 2021-08-17 00:00:00 2021-08-17 00:00:00 Patient Secure Msg Vijay Martinez [facility] MEDICAL OFFICE BUILDING 1.2.114 350.1.13.10 4.2.7.2.686 [id number] [id number] [facility] 2021-08-17 00:00:00 2021-08-17 00:00:00 Patient Secure Msg Vijay Martinez [facility] 1.114 350.1.13.10 4.2.7.2.686 [id number] 044 [id number] [facility] 2021-08-16 00:00:00 2021-08-16 00:00:00 Patient Secure Msg Vijay Martinez [facility] MEDICAL OFFICE BUILDING 1.114 350.1.13.10 4.2.7.2.686 [id number] 044 [id number] [facility] 2021-08-16 00:00:00 2021-08-16 00:00:00 Patient Secure Msg Doctor Unassigned, [place] [facility] MEDICAL OFFICE BUILDING 1.114 350.1.13.10 4.2.7.2.686 [id number] [facility] 2021-08-16 00:00:00 2021-08-16 00:00:00 Patient Secure Msg Vijay Martinez [facility] MEDICAL OFFICE BUILDING 1.114 350.1.13.10 4.2.7.2.686 [id number] 044 [id number] [facility] 2021-08-16 00:00:00 2021-08-16 00:00:00 Patient Secure Msg Vijay Martinez [facility] MEDICAL OFFICE BUILDING 1.2114 350.1.13.10 4.2.7.2.686 [id number] [facility] 2021-08-15 15:30:00 2021-08-15 16:16:42 Office Visit Ad[facility] 1.84114 350.1.13.10 4.2.7.2.686 [id number] [facility] 2021-08-15 15:30:00 2021-08-15 16:16:42 Outpatient ADÁN DIEGO [facility] [id number] [facility] 2021-08-15 15:30:00 2021-08-15 15:30:00 Outpatient ADÁN DIEGO [facility] [id number] [facility] 2021-08-15 15:30:00 2021-08-15 15:30:00 Outpatient R ADÁN KIM [facility] [id number] [facility] 2021-08-15 15:30:00 2021-08-15 15:30:00 Outpatient ADÁN DIEGO [facility] [id number] [facility] 2021-08-15 09:27:00 2021-08-15 12:26:00 Emergency X MAURA SAMAYOA [facility] ERT [id number] [facility] 2021-08-15 09:27:00 2021-08-15 12:26:00 Emergency Maura Samayoa [facility] 1.84.114 350.1.13.10 4.2.7.2.686 [id number] [facility] 2021-08-15 09:27:00 2021-08-15 12:26:00 Emergency MAURA DALE [facility] ERT [id number] [facility] 2021-08-15 00:00:00 2021-08-15 00:00:00 Patient Secure Msg Doctor Unassigned, [place] [facility] 1.840.114 350.1.13.10 4.2.7.2.686 [id number] [facility] 2021-08-14 13:25:00 2021-08-14 23:59:00 Outpatient R VÍCTORVIJAY Cannon [facility] [id number] [facility] 2021-08-14 13:25:00 2021-08-14 23:59:00 Outpatient R JUANRICHELLEIE [facility] [id number] [facility] 2021-08-14 13:25:00 2021-08-14 13:25:00 Outpatient R JUANVIJAY [facility] [id number] [facility] 2021-08-14 12:19:07 2021-08-14 13:24:00 Outpatient R JUANRICHELLEIE [facility] [id number] [facility] 2021-08-14 12:19:07 2021-08-14 13:24:00 Outpatient R JUAN VIJAY [facility] [id number] [facility] 2021-08-14 12:30:00 2021-08-14 13:01:24 Bar Roller Visit Lab, Filippo Reneekassandra [facility] TOÑO?[facility] MEDICAL OFFICE BUILDING 1.84114 350.1.13.10 4.2.7.2.686 [id number] [facility] 2021-08-14 12:30:00 2021-08-14 12:45:00 Bar Roller Visit Lab, Filippo Martinez [facility] TOÑO?[facility] MEDICAL OFFICE BUILDING 1.84114 350.1.13.10 4.2.7.2.686 [id number] [facility] 2021-08-14 11:30:00 2021-08-14 12:31:12 Office Visit Juan [facility] TOÑO?[facility] MED[facility] OFF[facility] BUILD[facility] 1.114 350.1.13.10 4.2.7.2.686 [id number] [facility] 2021-08-14 11:30:00 2021-08-14 12:31:12 Outpatient R VIJAY MARTINEZ [facility] [id number] [facility] 2021-08-14 00:00:00 2021-08-14 00:00:00 Patient Secure Msg Vijay Martinez [facility] TO[facility]O?[facility] MEDICAL OFFICE BUILDING 1..840.114 350.1.13.10 4.2.7.2.686 [id number] [facility] 2021-08-14 00:00:00 2021-08-14 00:00:00 Patient Secure Msg Vijay Martinez [facility] TO[facility]O?[facility] MEDICAL OFFICE BUILDING 1..840.114 350.1.13.10 4.2.7.2.686 [id number] [facility] 2021-08-09 14:45:00 2021-08-09 14:45:00 Outpatient R ADÁN KIM [facility] [id number] [facility] 2021-08-09 00:00:00 2021-08-09 00:00:00 Telephone Vijay Martinez [facility] TO[facility]O?[facility] MEDICAL OFFICE BUILDING 1..840.114 350.1.13.10 4.2.7.2.686 [id number] [facility] 2021-08-08 11:30:00 2021-08-08 23:59:00 Outpatient R VÍCTORVIJAY Cannon [facility] [id number] [facility] 2021-08-08 11:30:00 2021-08-08 23:59:00 Hospital Encounter Vijay Martinez [facility] TOÑO?[facility] MEDICAL OFFICE BUILDING 1..840.114 350.1.13.10 4.2.7.2.686 [id number] [facility] 2021-08-08 11:15:00 2021-08-08 11:15:00 Outpatient R VIJAY MARTINEZ [facility] [id number] [facility] 2021-08-08 11:00:00 2021-08-08 11:00:00 Outpatient R VIJAY MARTINEZ [facility] [id number] [facility] 2021-08-08 00:00:00 2021-08-08 00:00:00 Patient Secure Msg Doctor Unassigned, [place] [facility] 1.84.114 350.1.13.10 4.2.7.2.686 [id number] [facility] 2021-08-07 09:30:00 2021-08-07 10:23:21 Office Visit Vijay Martinez [facility] TOÑO?[facility] MED[facility] OFF[facility] BUILD[facility] 1.84.114 350.1.13.10 4.2.7.2.686 [id number] [facility] 2021-08-07 09:30:00 2021-08-07 10:23:21 Outpatient R VIJAY MARTINEZ [facility] [id number] [facility] 2021-08-07 09:30:00 2021-08-07 09:30:00 Outpatient R VIJAY MARTINEZ [facility] [id number] [facility] 2021-08-07 00:00:00 2021-08-07 00:00:00 Patient Secure Msg Vijay Martinez [facility] TOÑO?[facility] MED[facility] OFF[facility] BUILDING 1.84.114 350.1.13.10 4.2.7.2.686 [id number] [facility] 2021-08-07 00:00:00 2021-08-07 00:00:00 Patient Secure Msg Vijay Martinez [facility] TOÑO?[facility] MED[facility] OFF[facility] BUILD[facility] 1.84.114 350.1.13.10 4.2.7.2.686 [id number] [facility] 2021-08-07 00:00:00 2021-08-07 00:00:00 Patient Secure Celina Zheng [facility] 1..840.114 350.1.13.10 4.2.7.2.686 [id number] [facility] 2021-08-04 10:00:00 2021-08-04 10:00:00 Outpatient PETRA MICHAUD [facility] [id number] [facility] 2021-08-04 00:00:00 2021-08-04 00:00:00 Patient Secure Vijay Caraballo [facility] TO[facility]O?[facility] 1..840.114 350.1.13.10 4.2.7.2.686 [id number] [facility] 2021-08-03 11:00:00 2021-08-03 12:48:43 Office Visit Jayy Diaz Y [employer]. ..840.114 350.1.13.10 4.2.7.2.686 [id number] [facility] 2021-08-03 11:00:00 2021-08-03 12:48:43 Outpatient R JAYY DIAZ [facility] [id number] [facility] 2021-08-03 11:00:00 2021-08-03 11:00:00 Outpatient R JAYY DIAZ [facility] [id number] [facility] 2021-08-03 00:00:00 2021-08-03 00:00:00 Patient Secure Celina Zheng [facility] 1..840.114 350.1.13.10 4.2.7.2.686 [id number] [facility] 2021-08-02 00:00:00 2021-08-02 00:00:00 Telephone Vijay Martinez [facility] TOÑO?[facility] MEDICAL OFFICE BUILDING 1.2.840.114 350.1.13.10 4.2.7.2.686 [id number] [facility] 2021-07-21 08:00:00 2021-07-21 08:52:53 Outpatient DARRION QUIROZ HOWARD [facility] [id number] [facility] 2021-07-17 11:30:00 2021-07-17 11:30:00 Outpatient VIJAY ARAUZ [facility] [id number] [facility] 2021-07-17 00:00:00 2021-07-17 00:00:00 Patient Secure MsVijay [place] [facility] TOÑO?[facility] MEDICAL OFFICE BUILDING 1.2.840.114 350.1.13.10 4.2.7.2.686 [id number] [facility] 2021-06-19 00:00:00 2021-06-19 00:00:00 Telephone Vijay Martinez [facility] TOÑO?[facility] MEDICAL OFFICE BUILDING 1.2.840.114 350.1.13.10 4.2.7.2.686 [id number] [facility] 2021-06-09 00:00:00 2021-06-09 00:00:00 Telephone Reji Díaz [facility] NAL BUILDING 1.2.840.114 350.1.13.10 4.2.7.2.686 [id number] [facility] 2021-06-06 11:15:00 2021-06-06 11:15:00 Outpatient TETO BRANTLEY [facility] [id number] [facility] 2021-06-06 11:15:00 2021-06-06 11:15:00 Outpatient TETO BRANTLEY [facility] [id number] [facility] 2021-06-02 15:45:00 2021-06-02 15:45:00 Outpatient R CLAUDETTE EVANS [facility] [id number] [facility] 2021-05-31 10:00:00 2021-05-31 10:46:31 Outpatient R VIJAY MARTINEZ [facility] [id number] [facility] 2021-05-31 10:00:00 2021-05-31 10:46:31 Office Visit Víctorkassandra Vijay [facility] TO[facility]O?[facility] MED[facility] OFF[facility] BU[facility] 1..840.114 350.1.13.10 4.2.7.2.686 [id number] [facility] 2021-05-31 10:00:00 2021-05-31 10:46:31 Outpatient R VIJAY MARTINEZ [facility] [id number] [facility] 2021-05-31 00:00:00 2021-05-31 00:00:00 Orders Only Doctor Unassigned, [place] [facility] 1.840.114 350.1.13.10 4.2.7.2.686 [id number] [facility] 2021-05-26 00:00:00 2021-05-26 00:00:00 Telephone Skylar Groves [facility] TOÑO?[facility] MEDICAL OFFICE BUILDING 1..840.114 350.1.13.10 4.2.7.2.686 [id number] [facility] 2021-05-26 00:00:00 2021-05-26 00:00:00 Patient Secure Msg Prasanna Vargas Cam [facility] PROFESSIO NAL BUILDING 1.840.114 350.1.13.10 4.2.7.2.686 [id number] [facility] 2021-05-25 14:00:00 2021-05-25 14:30:00 Telemedici ne Visit Skylar Groves [facility] TO[facility]O?[facility] MEDICAL OFFICE BUILDING 1.2.840.114 350.1.13.10 4.2.7.2.686 [id number] [facility] 2021-05-25 14:00:00 2021-05-25 14:00:00 Outpatient R SKYLAR GROVES [facility] [id number] [facility] 2021-05-25 14:00:00 2021-05-25 14:00:00 Outpatient R SKYLAR GROVES [facility] [id number] [facility] 2021-05-25 00:00:00 2021-05-25 00:00:00 Patient Secure Skylar Wu [facility] TO[facility]O?[facility] MED[facility] OFF[facility] BUILD[facility] 1.2.840.114 350.1.13.10 4.2.7.2.686 [id number] [facility] 2021-05-25 00:00:00 2021-05-25 00:00:00 Patient Secure Skylar Wu [facility] MEDICAL OFFICE BUILDING 1.2.840.114 350.1.13.10 4.2.7.2.686 [id number] [facility] 2021-05-24 00:00:00 2021-05-24 00:00:00 Telephone Rad SerraHPilar [facility] BUILDING 1.2.840.114 350.1.13.10 4.2.7.2.686 [id number] [facility] 2021-05-24 00:00:00 2021-05-24 00:00:00 Patient Secure Msg Rad SerraHPilar [facility] BUILDING 1.2.840.114 350.1.13.10 4.2.7.2.686 [id number] [facility] 2021-05-24 00:00:00 2021-05-24 00:00:00 Patient Secure Claudette Hinds [facility] TOÑO?[facility] MEDICAL OFFICE BUILDING 1..840.114 350.1.13.10 4.2.7.2.686 [id number] [facility] 2021-05-23 10:00:00 2021-05-23 10:00:00 Outpatient R [facility] [id number] [facility] 2021-05-23 10:00:00 2021-05-23 10:00:00 Outpatient R [facility] [id number] [facility] 2021-05-23 00:00:00 2021-05-23 00:00:00 Patient Secure Claudette Hinds [facility] TOÑO?[facility]ICAL [facility] BUILDING 1..840.114 350.1.13.10 4.2.7.2.686 [id number] [id number] [facility] 2021-05-16 09:00:00 2021-05-16 09:00:00 Outpatient R TETO CARNES [facility] [id number] [facility] 2021-05-12 00:00:00 2021-05-12 00:00:00 Orders Only Doctor Unassigned, [place] [facility] 1..840.114 350.1.13.10 4.2.7.2.686 [id number] [facility] 2021-05-10 13:00:00 2021-05-10 13:00:00 Outpatient R CRISTINACLAUDETTE IBRAHIM [facility] [id number] [facility] 2021-05-10 13:00:00 2021-05-10 13:00:00 [facility] [id number] [facility] 2021-05-09 00:00:00 2021-05-09 00:00:00 Telephone Prasanna Vargas [facility] BUILDING 1..840.114 350.1.13.10 4.2.7.2.686 [id number] [facility] 2021-05-09 00:00:00 2021-05-09 00:00:00 Patient Secure g Cornelius Serrazohra [facility] PROFESSIO NAL BUILDING 1.2.840.114 350.1.13.10 4.2.7.2.686 [id number] [facility] 2021-05-08 16:00:00 2021-05-08 16:00:00 Outpatient Fazrana ARANA JE [facility] [id number] [facility] 2021-05-08 16:00:00 2021-05-08 16:00:00 Outpatient JE CRABTREE [facility] [id number] [facility] 2021-05-08 00:00:00 2021-05-08 00:00:00 Patient Secure g Cornelius Serrazohra [facility] BUILDING 1.2.840.114 350.1.13.10 4.2.7.2.686 [id number] [id number] [facility] 2021-05-08 00:00:00 2021-05-08 00:00:00 Patient Secure g Rad Serra.HPilar [facility] NAL BUILDING 1.2.840.114 350.1.13.10 4.2.7.2.686 [id number] [facility] 2021-05-04 00:00:00 2021-05-04 00:00:00 Patient Secure g Rad Serra [facility] PROFESSIO NAL BUILDING 1.2.840.114 350.1.13.10 4.2.7.2.686 [id number] [id number] [facility] 2021-05-04 00:00:00 2021-05-04 00:00:00 Patient [facility] 1..840.114 350.1.13.10 4.2.7.2.686 [id number] [facility] 2021-05-03 11:15:36 2021-05-03 23:59:00 [facility] [id number] 2021-05-03 11:15:36 2021-05-03 23:59:00 Hospital En[facility] 1..840.114 350.1.13.10 4.2.7.2.686 [id number] [facility] 2021-05-03 00:00:00 2021-05-03 00:00:00 Telephone Claudette Evans [facility] TOÑO?[facility] MEDICAL OFFICE BUILDING 1..840.114 350.1.13.10 4.2.7.2.686 [id number] [facility] 2021-05-02 00:00:00 2021-05-02 00:00:00 Telephone Rad Serra [facility] BUILDING 1..840.114 350.1.13.10 4.2.7.2.686 [id number] [id number] [facility] 2021-05-02 00:00:00 2021-05-02 00:00:00 Patient Secure Msg Claudette Evans A [facility] TOÑO?[facility] OFFICE BUILDING 1..840.114 350.1.13.10 4.2.7.2.686 [id number] 044 [id number] [facility] 2021-05-02 00:00:00 2021-05-02 00:00:00 Telephone Claudette Evans [facility] TOÑO?[facility] OFF[facility] BUILDING 1.84114 350.1.13.10 4.2.7.2.686 [id number] [id number] [facility] 2021-05-02 00:00:00 2021-05-02 00:00:00 Patient Secure Msg Rad Serra [facility] BUILDING 1.84114 350.1.13.10 4.2.7.2.686 [id number] 059 [id number] [facility] 2021-05-02 00:00:00 2021-05-02 00:00:00 Patient Secure Msg Claudette Evans [facility] TOÑO?[facility] OFFICE BUILDING 1.84114 350.1.13.10 4.2.7.2.686 [id number] [facility] 2021-04-28 00:00:00 2021-04-28 00:00:00 Patient Secure Msg Claudette Evans [facility] TOÑO?[facility] OFFICE BUILDING 1.84114 350.1.13.10 4.2.7.2.686 [id number] [facility] 2021-04-27 14:24:00 2021-04-27 15:49:00 Emergency X [facility]GIE [facility] ERT [id number] [facility] 2021-04-27 14:24:00 2021-04-27 15:49:00 Emergency Maggie Hamilton [facility] 1.84114 350.1.13.10 4.2.7.2.686 [id number] [facility] 2021-04-27 11:15:00 2021-04-27 11:30:00 Laboratory Only Only, Ang Db Test Unknown, Attending Thony Johnson [facility] TOÑO?[facility] MEDICAL OFFICE BUILDING 1.84114 350.1.13.10 4.2.7.2.686 [id number] [facility] 2021-04-27 11:15:00 2021-04-27 11:15:00 Outpatient THONY LUIS [facility] [id number] [facility] 2021-04-27 00:00:00 2021-04-27 00:00:00 Orders Only Doctor Unassigned, [place] [facility] 1.114 350.1.13.10 4.2.7.2.686 [id number] [facility] 2021-04-20 15:00:00 2021-04-20 15:00:00 Outpatient EDER RENEE [facility] [id number] [facility] 2021-04-13 00:00:00 2021-04-13 00:00:00 Patient Secure Msg Hudson Carmelinarico [facility] OFFICE BUILDING 1.84114 350.1.13.10 4.2.7.2.686 [id number] 044 [id number] [facility] 2021-04-12 00:00:00 2021-04-12 00:00:00 [facility] BU[facility] 1.114 350.1.13.10 4.2.7.2.686 [id number] [facility] 2021-03-27 00:00:00 2021-03-27 00:00:00 Telephone Prasanna Vargas [facility] BUILDING 1.84114 350.1.13.10 4.2.7.2.686 [id number] [facility] 2021-03-24 00:00:00 2021-03-24 00:00:00 Patient Secure Msg Doctor Unassigned, [place] [facility] 1.114 350.1.13.10 4.2.7.2.686 [id number] [facility] 2021-03-23 13:30:00 2021-03-23 13:30:00 Outpatient R PINO HOFF [facility] [id number] [facility] 2021-03-23 13:30:00 2021-03-23 13:30:00 Outpatient R PINO HOFF [facility] [id number] [facility] 2021-03-22 09:20:00 2021-03-22 09:20:00 Outpatient R ADITYA MEEKS STRAWAL [facility] [id number] [facility] 2021-03-22 09:20:00 2021-03-22 09:20:00 Outpatient R ADITYA MEEKS STRAHIL [facility] [id number] [facility] 2021-03-20 00:00:00 2021-03-20 00:00:00 Outpatient R CLAUDETTE EVANS [facility] [id number] [facility] 2021-03-18 00:00:00 2021-03-18 00:00:00 Case Management Cristina [facility] MEDICAL OFFICE BUILDING 1.2.840.114 350.1.13.10 4.2.7.2.686 [id number] [facility] 2021-03-16 11:16:07 2021-03-16 11:31:07 Bar Roller Visit Lab, Ang - Db Cristina Claudette [facility] OFFICE BUILDING 1.2.840.114 350.1.13.10 4.2.7.2.686 [id number] [facility] 2021-03-16 11:30:00 2021-03-16 11:30:00 Outpatient R CLAUDETTE EVANS [facility] [id number] [facility] 2021-03-16 11:00:00 2021-03-16 11:14:45 Outpatient R CLAUDETTE EVANS [facility] [id number] [facility] 2021-03-16 10:00:58 2021-03-16 11:14:45 Office Visit Claudette Evans [facility] ANGLEROBERTA LUNDBERG?[facility] MEDICAL OFFICE BUILDING 1.2.840.114 350.1.13.10 4.2.7.2.686 [id number] [facility] 2021-03-16 00:00:00 2021-03-16 00:00:00 Patient Secure Msg Claudette Evans [facility] ANGLEROBERTA LUNDBERG?[facility] MEDICAL OFFICE BUILDING 1..840.114 350.1.13.10 4.2.7.2.686 [id number] [facility] 2021-03-02 16:15:00 2021-03-02 16:15:00 Outpatient R CRISTINACARMELINA IBRAHIMRICO [facility] [id number] [facility] 2021-02-28 18:30:00 2021-02-28 18:30:00 Outpatient R ILEANA MEDRANO [facility] [id number] [facility] 2021-02-28 00:00:00 2021-02-28 00:00:[address] [facility] Medical Office Building 1.2.840.114 350.1.13.10 4.2.7.2.686 [id number] [facility] 2021-02-27 09:00:00 2021-02-27 09:00:00 Outpatient R AMELIA HAMMOND [facility] [id number] [facility] 2021-02-23 00:00:00 2021-02-23 00:00:[address] [facility]?Bannerkassandra [facility] Medical Office Building 1.2.840.114 350.1.13.10 4.2.7.2.686 [id number] [facility] 2021-02-10 18:12:00 2021-02-10 23:39:00 Emergency Kaycee Méndez [facility] 1.2.840.114 350.1.13.10 4.2.7.2.686 [id number] [facility] 2021-02-10 00:00:00 2021-02-10 00:00:00 Patient Secure Msg Cristina, Carmelinadiful [facility] TO[facility]O?[facility] MEDICAL OFFICE BUILDING 1.2.840.114 350.1.13.10 4.2.7.2.686 [id number] 044 [id number] [facility] 2021-02-10 00:00:00 2021-02-10 00:00:00 Patient Secure Msg Cristina, Carmelinadiful [facility] TO[facility]O?[facility] MEDICAL OFFICE BUILDING 1.2.840.114 350.1.13.10 4.2.7.2.686 [id number] [facility] 2021-02-10 00:00:00 2021-02-10 00:00:00 Patient Secure Msg Carmelina Evansdiful A [facility] TOÑO?[facility] MEDICAL OFFICE BUILDING 1.2.840.114 350.1.13.10 4.2.7.2.686 [id number] 044 [id number] [facility] 2021-02-10 00:00:00 2021-02-10 00:00:00 Patient Secure Msg Cristina, Carmelinadiful [facility] TO[facility] MEDICAL OFFICE BUILDING 1.2.840.114 350.1.13.10 4.2.7.2.686 [id number] [facility] 2021-02-09 13:40:00 2021-02-09 23:59:00 Hospital Encounter HudsonCarmelina ibrahimdiful A [facility] Toño?[facility] Medical Office Building 1..114 350.1.13.10 4.2.7.2.686 [id number] [facility] 2021-02-09 13:49:05 2021-02-09 14:04:05 Bar Roller Visit Lab, Ang - Db Claudette Evans [facility] Toño?[facility] Medical Office Building 1..114 350.1.13.10 4.2.7.2.686 [id number] [facility] 2021-02-09 12:23:13 2021-02-09 13:47:12 Office Visit Claudette Evans [facility] Toño?[facility] Medical Office Building 1.114 350.1.13.10 4.2.7.2.686 [id number] [facility] 2021-02-09 13:00:00 2021-02-09 13:00:00 Outpatient R CLAUDETTE EVANS [facility] [id number] [facility] 2021-02-09 00:00:00 2021-02-09 00:00:00 Patient Secure Msg Doctor Unassigned, [place] [facility] 1.114 350.1.13.10 4.2.7.2.686 [id number] [facility] 2021-02-08 10:20:00 2021-02-08 10:20:00 Outpatient R ADITYA MEEKS STRAHIL [facility] [id number] [facility] 2021-02-07 00:00:00 2021-02-07 00:00:00 Patient Secure Msg Claudette Evans [facility] TOÑO?[facility] MEDICAL OFFICE BUILDING 1.114 350.1.13.10 4.2.7.2.686 [id number] [facility] 2021-02-02 10:30:00 2021-02-02 10:30:00 Outpatient R SKYLAR GROVES [facility] [id number] [facility] 2021-02-02 00:00:00 2021-02-02 00:00:[address] [facility] Medical Office Building 1.2.840.114 350.1.13.10 4.2.7.2.686 [id number] [facility] 2021-02-01 08:30:00 2021-02-01 08:30:00 Outpatient R SKYLAR GROVES [facility] [id number] [facility] 2021-01-31 18:44:04 2021-01-31 19:41:[address] [facility] Medical Office Building 1.2.840.114 350.1.13.10 4.2.7.2.686 [id number] [facility] 2021-01-31 19:00:00 2021-01-31 19:00:00 Outpatient R FLACO BOYD [facility] [id number] [facility] 2021-01-31 00:00:00 2021-01-31 00:00:[address] [facility] Medical Office Building 1.2.840.114 350.1.13.10 4.2.7.2.686 [id number] 044 [id number] [facility] 2021-01-31 00:00:00 2021-01-31 00:00:00 Patient Secure Msg Branden Evansful Kassandra [facility] TOÑO?[facility] MEDICAL OFFICE BUILDING 1.2.840.114 350.1.13.10 4.2.7.2.686 [id number] 044 [id number] [facility] 2021-01-30 00:00:00 2021-01-30 00:00:00 Telephone Rad Serra [facility] nal Building 1.840.114 350.1.13.10 4.2.7.2.686 [id number] [facility] 2021-01-30 00:00:00 2021-01-30 00:00:00 Patient Secure Msg Claudette Evans A [facility] OFFICE BUILDING ONE 1.84.114 350.1.13.10 4.2.7.2.686 [id number] [facility] 2021-01-26 14:00:00 2021-01-26 14:00:00 Outpatient R RAD SERRA [facility] [id number] [facility] 2021-01-26 00:00:00 2021-01-26 00:00:00 Patient Secure Msg Skylar Groves [facility] TOÑO?[facility] OFFICE BUILDING 1.840.114 350.1.13.10 4.2.7.2.686 [id number] [facility] 2021-01-25 15:00:00 2021-01-25 15:00:00 Outpatient R [facility] [id number] [facility] 2021-01-21 00:00:00 2021-01-21 00:00:00 Patient Secure Msg Skylar Groves [facility] TOÑO?[facility] MEDICAL OFFICE BUILDING 1.84.114 350.1.13.10 4.2.7.2.686 [id number] [id number] [facility] 2021-01-20 16:51:22 2021-01-20 17:12:41 Telemedici ne Visit Farzad Groveslie Kassandra [facility] Toño?[facility] Office Building 1.840.114 350.1.13.10 4.2.7.2.686 [id number] [facility] 2021-01-20 16:30:00 2021-01-20 16:30:00 Outpatient R SKYLAR GROVES [facility] [id number] [facility] 2021-01-19 10:15:00 2021-01-19 10:15:00 Outpatient R LORI KAYLEY [facility] [id number] [facility] 2021-01-14 00:00:00 2021-01-14 00:00:00 Case Management Kassandra Robledo [facility] 1..114 350.1.13.10 4.2.7.2.686 [id number] [facility] 2021-01-14 00:00:00 2021-01-14 00:00:00 Patient Secure Msg Doctor Unassigned, [place] [facility] 1..114 350.1.13.10 4.2.7.2.686 [id number] [facility] 2021-01-12 16:10:00 2021-01-12 19:45:00 Emergency Karin Matthews [facility] 1..114 350.1.13.10 4.2.7.2.686 [id number] [facility] 2021-01-12 15:20:00 2021-01-12 15:20:00 Outpatient ILEANA CASE [facility] [id number] [facility] 2021-01-12 14:46:57 2021-01-12 15:06:57 Urgent Care Thony Johnson [facility] Medical Office Building 1..114 350.1.13.10 4.2.7.2.686 [id number] [facility] 2020-12-26 15:30:00 2020-12-26 16:13:32 Outpatient R RAD SERRA [facility] [id number] [facility] 2020-12-26 15:30:00 2020-12-26 16:13:32 Office Visit Rad SerraPauloPilar [facility] PROFESSIO NAL BUILDING 1.2.840.114 350.1.13.10 4.2.7.2.686 [id number] 059 [id number] [facility] 2020-12-26 15:00:32 2020-12-26 16:13:32 Office Visit Rad Ser[facility] n[facility] Building 1.2.840.114 350.1.13.10 4.2.7.2.686 [id number] [facility] 2020-12-26 15:30:00 2020-12-26 15:30:00 Outpatient R RAD SERRA [facility] [id number] [facility] 2020-11-29 00:00:00 2020-11-29 00:00:00 Patient Secure Msg Serra Rad RauschPauloPilar [facility] BUILDING 1.2.840.114 350.1.13.10 4.2.7.2.686 [id number] [facility] 2020-11-22 11:00:00 2020-11-22 11:00:00 Outpatient R CELINA MIXON [facility] [id number] [facility] 2020-11-10 18:42:46 2020-11-10 19:53:43 Urgent Care Alissa Collins [facility] Office Building One 1.2.840.114 350.1.13.10 4.2.7.2.686 [id number] 2020-11-10 19:00:00 2020-11-10 19:00:00 Outpatient R [facility] [id number] [facility] 2020-10-31 18:52:00 2020-10-31 22:15:00 Emergency Kaycee Méndez [facility] 1.2.840.114 350.1.13.10 4.2.7.2.686 [id number] 2020-10-31 19:00:00 2020-10-31 19:00:00 Outpatient Farzana CARI KAUR [facility] [id number] [facility] 2020-10-31 00:00:00 2020-10-31 00:00:00 Orders Only Doctor Unassigned, [place] [facility] 1.2.840.114 350.1.13.10 4.2.7.2.686 [id number] 2020-10-20 14:02:00 2020-10-20 17:13:00 Emergency Kaycee Méndez [facility] 1.2.840.114 350.1.13.10 4.2.7.2.686 [id number] [id number] 2020-10-18 00:00:00 2020-10-18 00:00:00 Patient Secure Msg Prasanna Vargas [facility] 1.2840.114 350.1.13.10 4.2.7.2.686 [id number] [facility] 2020-10-14 10:00:00 2020-10-14 23:59:00 Hospital Encounter Prasanna Vargas [facility] 1.2.840.114 350.1.13.10 4.2.7.2.686 [id number] 2020-10-14 13:30:00 2020-10-14 13:30:00 Outpatient CELINA STONE [facility] [id number] [facility] 2020-10-11 00:00:00 2020-10-11 00:00:00 Patient Secure Msg Prasanna Vargas [facility] PROFESSIO NAL BUILDING 1.2840.114 350.1.13.10 4.2.7.2.686 [id number] [facility] 2020-10-11 00:00:00 2020-10-11 00:00:00 Patient Secure Msg Prasanna [facility] 1.2.840.114 350.1.13.10 4.2.7.2.686 [id number] [facility] 2020-10-09 12:00:00 2020-10-09 15:57:00 Emergency Anna Kim [facility] 1.2.840.114 350.1.13.10 4.2.7.2.686 [id number] [id number] 2020-10-07 00:00:00 2020-10-07 00:00:00 Patient Secure Msg [facility] BUILDING 1.2.840.114 350.1.13.10 4.2.7.2.686 [id number] [facility] 2020-10-07 00:00:00 2020-10-07 00:00:00 Patient Secure Msg Prasanna [facility]argas [facility] 1.2.840.114 350.1.13.10 4.2.7.2.686 [id number] [facility] 2020-10-07 00:00:00 2020-10-07 00:00:00 Patient Secure Msg Prasanna Vargas [facility] 1.2.840.114 350.1.13.10 4.2.7.2.686 [id number] [facility] 2020-10-07 00:00:00 2020-10-07 00:00:00 Patient Secure Msg Praasnna Vargas [facility] 1.2.840.114 350.1.13.10 4.2.7.2.686 [id number] [facility] 2020-10-07 00:00:00 2020-10-07 00:00:00 [facility] 1.2.840.114 350.1.13.10 4.2.7.2.686 [id number] 134 [id number] [facility] 2020-10-07 00:00:00 2020-10-07 00:00:00 Patient Secure M[facility] 1.2.840.114 350.1.13.10 4.2.7.2.686 [id number] 134 [id number] [facility] 2020-10-07 00:00:00 2020-10-07 00:00:00 Patient Secure Msg Prasanna Vargas [facility] BUILDING 1.2.840.114 350.1.13.10 4.2.7.2.686 [id number] [facility] 2020-10-06 08:53:00 2020-10-06 09:46:44 Office Visit Prasanna Vargas [facility] Building 1.2.840.114 350.1.13.10 4.2.7.2.686 [id number] 134 [id number] 2020-10-06 09:30:00 2020-10-06 09:30:00 Outpatient PRASANNA LOOMIS [facility] [id number] [facility] 2020-10-04 14:00:00 2020-10-04 14:00:00 Outpatient CELINA STONE [facility] [id number] [facility] 2020-09-30 10:30:00 2020-09-30 10:30:00 Outpatient CELINA STONE [facility] [id number] [facility] 2020-09-29 13:45:00 2020-09-29 13:45:00 Outpatient PREET KRISHNA [facility] [id number] [facility] 2020-09-06 15:30:00 2020-09-06 15:30:00 Outpatient PRASANNA LOOMIS [facility] [id number] [facility] 2020-09-05 00:00:00 2020-09-05 00:00:00 Patient Secure Prasanna Kang [facility] 1.2.840.114 350.1.13.10 4.2.7.2.686 [id number] 134 [id number] [facility] 2020-09-02 15:40:00 2020-09-02 15:40:00 Outpatient DARRION QUIROZ HOWARD [facility] [id number] [facility] 2020-08-31 10:30:00 2020-08-31 10:30:00 Outpatient RAD MATAMOROS [facility] [id number] [facility] 2020-08-31 00:00:00 2020-08-31 00:00:00 Patient Secure Prasanna Kang [facility] 1.2.840.114 350.1.13.10 4.2.7.2.686 [id number] 134 [id number] [facility] 2020-08-18 09:30:00 2020-08-18 09:30:00 Outpatient Farzana VARGAS PRASANNA [facility] [id number] [facility] 2020-08-11 13:30:00 2020-08-11 13:30:00 Outpatient Farzana VARGAS PRASANNA [facility] [id number] [facility] 2020-08-04 14:00:00 2020-08-04 14:00:00 Outpatient EDER RENEE [facility] [id number] [facility] 2020-07-28 10:30:00 2020-07-28 10:30:00 Outpatient RAD MATAMOROS [facility] [id number] [facility] 2020-06-30 16:15:00 2020-06-30 16:15:00 Outpatient R CLAUDETTE EVANS [facility] [id number] [facility] 2020-06-17 15:00:00 2020-06-17 15:00:00 Outpatient DARRION QUIROZ HOWARD [facility] [id number] [facility] 2020-06-16 15:30:00 2020-06-16 15:30:00 Outpatient R RAD SERRA [facility] [id number] [facility] 2020-06-09 12:30:00 2020-06-09 12:30:00 Outpatient NI YUNG [facility] [id number] [facility] 2020-06-08 08:00:00 2020-06-08 08:00:00 Outpatient NI YUNG [facility] [id number] [facility] 2020-06-02 09:00:00 2020-06-02 09:00:00 Outpatient RAD MATAMOROS [facility] [id number] [facility] 2020-05-28 10:00:00 2020-05-28 10:00:00 Outpatient Farzana KAUR CARI [facility] [id number] [facility] 2020-05-26 00:00:00 2020-05-26 00:00:00 Patient Secure Msg Claudette Evans [facility] BU[facility] ONE 1.2.840.114 350.1.13.10 4.2.7.2.686 [id number] [facility] 2020-05-24 10:00:00 2020-05-24 10:00:00 Outpatient NI YUNG [facility] [id number] [facility] 2020-05-24 00:00:00 2020-05-24 00:00:00 Patient Secure Msg Doctor Unassigned, [place] [facility] BU[facility] 1.2.840.114 350.1.13.10 4.2.7.2.686 [id number] [facility] 2020-05-19 16:30:00 2020-05-19 16:30:00 Outpatient R OSITO HITCHCOCK [facility] [id number] [facility] 2020-05-17 13:00:00 2020-05-17 13:00:00 Outpatient DARRION QUIROZ HOWARD [facility] [id number] [facility] 2020-05-16 16:00:00 2020-05-16 16:00:00 Outpatient CLAUDETTE CEDILLO [facility] [id number] [facility] 2020-05-09 00:00:00 2020-05-09 00:00:00 Patient Secure Msg Claudette Evans [facility] ONE 1.2.840.114 350.1.13.10 4.2.7.2.686 [id number] [facility] 2020-05-08 10:24:00 2020-05-08 13:03:00 Emergency X OLAMIDE GARVIN [facility] ERT [id number] [facility] 2020-05-03 15:00:00 2020-05-03 15:00:00 Outpatient CLAUDETTE CEDILLO [facility] [id number] [facility] 2020-04-30 11:14:00 2020-05-01 15:50:00 Outpatient X KAVYA RODRIGUEZ [facility] [id number] [facility] 2020-04-30 10:20:00 2020-04-30 10:20:00 Outpatient ROSALES KRISHNA [facility] [id number] [facility] 2020-04-30 10:15:00 2020-04-30 10:15:00 Outpatient ROSALES KRISHNA [facility] [id number] [facility] 2020-04-29 00:00:00 2020-04-29 00:00:00 Patient Secure Msg Osito Hitchcock [facility] 1..114 350.1.13.10 4.2.7.2.686 [id number] [facility] 2020-04-28 14:00:00 2020-04-28 14:00:00 Outpatient R OSITO HITCHCOCK [facility] [id number] [facility] 2020-04-25 16:15:00 2020-04-25 16:15:00 Outpatient R CLAUDETTE EVANS [facility] [id number] [facility] 2020-04-22 00:00:00 2020-04-22 00:00:00 Patient Secure Msg Eder [facility] 1.840.114 350.1.13.10 4.2.7.2.686 [id number] [facility] 2020-04-18 10:00:00 2020-04-18 10:00:00 Outpatient R OSITO HITCHCOCK [facility] [id number] [facility] 2020-04-15 10:30:00 2020-04-15 10:30:00 Outpatient R RAD SERRA [facility] [id number] [facility] 2020-04-12 13:38:00 2020-04-13 16:25:00 [facility] [id number] [facility] 2020-03-17 16:15:00 2020-03-17 16:15:00 Outpatient R TETO CARNES [facility] [id number] [facility] 2020-03-04 00:00:00 2020-03-04 00:00:00 Refill Heaven Hitchcocksir [facility] 1.840.114 350.1.13.10 4.2.7.2.686 [id number] 2020-02-25 16:00:00 2020-02-25 16:00:00 Outpatient R OSITO HITCHCOCK [facility] [id number] [facility] 2020 14:00:00 2020 14:00:00 Outpatient R TETO CARENS [facility] [id number] [facility] 2020-02-08 10:30:00 2020-02-08 10:30:00 Outpatient R PRASANNA VARGAS [facility] [id number] [facility] 2020-02-05 00:00:00 2020-02-05 00:00:00 Patient Secure [facility] BU[facility] 1.2.840.114 350.1.13.10 4.2.7.2.686 [id number] [facility] 2020-02-04 13:30:00 2020-02-04 13:30:00 Outpatient R JACK, OSITO [facility] [id number] [facility] 2020-01-23 10:15:00 2020-01-23 10:15:00 Outpatient R [facility] [id number] [facility] 2020-01-21 13:00:00 2020-01-21 13:00:00 Outpatient R JACK OSITO [facility] [id number] [facility] 2020-01-14 16:00:00 2020-01-14 16:00:00 Outpatient R JACK OSITO [facility] [id number] [facility] 2020-01-05 13:45:00 2020-01-05 13:45:00 Outpatient R PRASANNA VARGAS [facility] [id number] [facility] 2020-01-05 00:00:00 2020-01-05 00:00:00 Patient Secure [facility]anna [facility] BU[facility] 1.2.840.114 350.1.13.10 4.2.7.2.686 [id number] [facility] 2019-12-03 10:30:00 2019-12-03 10:30:00 Outpatient R CRICKET TAYLOR [facility] [id number] [facility] 2019-11-27 11:00:00 2019-11-27 11:00:00 Outpatient TETO BRANTLEY [facility] [id number] [facility] 2019-11-26 00:00:00 2019-11-26 00:00:00 Patient Secure Msg Doctor Unassigned, [place] [facility] 1.2.840.114 350.1.13.10 4.2.7.2.686 [id number] [facility] 2019-11-25 08:00:00 2019-11-25 08:00:00 Outpatient Farzana CARNES TETO [facility] [id number] [facility] 2019-11-23 00:00:00 2019-11-23 00:00:00 Patient Secure Msg Doctor Unassigned, [place] [facility] 1.2.840.114 350.1.13.10 4.2.7.2.686 [id number] [facility] 2019-11-18 10:00:00 2019-11-18 10:00:00 Outpatient TETO BRANTLEY [facility] [id number] [facility] 2019-11-17 00:00:00 2019-11-17 00:00:00 Patient Secure Msg Doctor Unassigned, [place] [facility] 1.2.840.114 350.1.13.10 4.2.7.2.686 [id number] [facility] 2019-11-13 00:00:00 2019-11-13 00:00:00 Patient Secure Msg Alicia Prasanna Oneal [facility] 1.2.840.114 350.1.13.10 4.2.7.2.686 [id number] [facility] 2019-09-02 11:00:00 2019-09-02 11:00:00 Outpatient CRICKET FRYE [facility] [id number] [facility] 2019-08-14 10:15:00 2019-08-14 10:15:00 Outpatient R TETO CARNES [facility] [id number] [facility] 2019-08-13 11:00:00 2019-08-13 11:00:00 Outpatient R CRICKET TAYLOR [facility] [id number] [facility] 2019-08-12 09:00:00 2019-08-12 09:00:00 Outpatient R [facility] [id number] [facility] 2019-07-20 16:06:00 2019-07-20 16:06:00 Outpatient Alisson VARGAS PRASANNA [facility] [id number] [facility] 2019-07-20 08:15:00 2019-07-20 08:15:00 Outpatient R CRICKET TAYLOR [facility] [id number] [facility] 2019-07-13 08:00:00 2019-07-13 08:00:00 Outpatient R CRICKET TAYLOR [facility] [id number] [facility] 2019-07-12 13:39:00 2019-07-12 13:39:00 Outpatient PRASANNA HERRERA [facility] [id number] [facility] 2019-07-06 13:00:00 2019-07-06 13:00:00 Outpatient R CRICKET TAYLOR [facility] [id number] [facility] 2019-06-13 10:40:46 2019-06-13 12:35:00 Emergency X SARAHI AVILA [facility] ERT [id number] [facility] 2019-05-13 23:07:00 2019-05-14 09:15:00 Outpatient PRASANNA HERRERA [facility] [id number] [facility] Results Test Description Test Time Test Comments Results Result Co mments Source [facility] 16:39:24* Test Item Value Reference Range Interpretation Comme nts LIPASE (test code = 4791347612) 40 U/L 0-220 Lab Interpretation (test cod e = 82812-0) Normal [facility] [id number] 16:27:28EXAM: CT ABDOMEN PELVIS W CONTRAST HISTORY: [...] hypodensity isseen within the right gluteal soft tissue.[facility] CBC WITH [id number] 16:14:18* Test Item Value Reference Range Interpretation Comme nts WBC (test code = 6690-2) 6.32 See_Comment [Automated [employer]] The system which generated this result transmitted reference range: 4.30 - 11.10 10*3/?L. The reference range was not used to interpret this result as normal/abnormal. RBC (test code = 789-8) 4.61 See_Comment [Automated messa ge] The system which [...] 34.1 g/dL 31.6-35.1 RDW-SD (test code = 52663-0) 42.0 fL 39.0-49.9 RDW-CV (test code = 788-0) 13.0 % 12.0-15.5 PLT (test code = 777-3) 369 See_Comment H [Automated [employer] ge] The system which generated this result transmitted reference range: 166 - 358 10*3/?L. The reference range was not used to interpret this result as normal/abnormal. MPV (test code = 57112-9) 9.9 fL 9.5-12.9 NRBC/100 WBC (test code = 5250345243) 0.0 See_Comment [Automated Prysm ssage] The system which generated this result transmitted reference range: 0.0 - 10.0 /100 WBCs. The reference range was not used to interpret this result as normal/abnormal. NRBC x10^3 (test code = 3407301703) See_Comment [Automated [employer] ge] The system which generated this result transmitted reference range: 10*3/?L. The reference range was not used to interpret this result as normal/abnormal. GRAN MAT (NEUT) % (test code = 770-8) 64.8 % IMM GRAN % (test code = 9688502068) 0.50 % LYMPH % (test code = 736-9) 25.3 % MONO % (test code = 5905-5) 4.1 % EOS % (test code = 713-8) 4.7 % BASO % (test code = 706-2) 0.6 % GRAN MAT x10^3(ANC) (test code = 9986128633) 4.09 10*3/uL 1.88-7.09 IMM GRAN x10^3 (test code = 0831891999) 0.03 10*3/uL 0.00-0.06 LYMPH x10^3 (test code = 731-0) 1.60 10*3/uL 1.32-3.29 MONO x10^3 (test code = 742-7) 0.26 10*3/uL 0.33-0.92 L EOS x10^3 (test code = 711-2) 0.30 10*3/uL 0.03-0.39 BASO x10^3 (test code = 704-7) 0.04 10*3/uL 0.01-0.07 Lab Interpretation (test code = 73326-6) Abnormal [facility] [id number] 15:31:00* Test Item Value Reference Range Interpretation Comme nts POCT PREG (test code = 1605) Negative On board controls acceptable with C Line (test code = 3574) Yes POCT PREG LOT # (test code = 3575) [id number] POCT PREG TEST DATE ( test code = 3576) 2024-07-21 Lab Interpretation (test cod e = 32818-7) Normal [facility] WITH [id number] 04:28:47* Test Item Value Reference Range Interpretation Comme nts WBC (test code = 6690-2) 5.45 See_Comment [Automated messa ge] The system which generated this result transmitted reference range: 4.30 - 11.10 10*3/?L. The reference range was not used to interpret this result as normal/abnormal. RBC (test code = 789-8) 4.59 See_Comment [Automated messa ge] The system which [...] 34.0 g/dL 31.6-35.1 RDW-SD (test code = 05443-7) 40.3 fL 39.0-49.9 RDW-CV (test code = 788-0) 13.1 % 12.0-15.5 PLT (test code = 777-3) 307 See_Comment [Automated messa ge] The system which generated this result transmitted reference range: 166 - 358 10*3/?L. The reference range was not used to interpret this result as normal/abnormal. MPV (test code = 85819-3) 11.0 fL 9.5-12.9 NRBC/100 WBC (test code = 1452800573) 0.0 See_Comment [Automated Prysm ssage] The system which generated this result transmitted reference range: 0.0 - 10.0 /100 WBCs. The reference range was not used to interpret this result as normal/abnormal. NRBC x10^3 (test code = 2432092714) See_Comment [Automated messa ge] The system which generated this result transmitted reference range: 10*3/?L. The reference range was not used to interpret this result as normal/abnormal. GRAN MAT (NEUT) % (test code = 770-8) 52.0 % IMM GRAN % (test code = 1129074892) 0.20 % LYMPH % (test code = 736-9) 38.0 % MONO % (test code = 5905-5) 4.6 % EOS % (test code = 713-8) 4.6 % BASO % (test code = 706-2) 0.6 % GRAN MAT x10^3(ANC) (test code = 6531984271) 2.84 10*3/uL 1.88-7.09 IMM GRAN x10^3 (test code = 9251751695) 0.00-0.06 LYMPH x10^3 (test code = 731-0) 2.07 10*3/uL 1.32-3.29 MONO x10^3 (test code = 742-7) 0.25 10*3/uL 0.33-0.92 L EOS x10^3 (test code = 711-2) 0.25 10*3/uL 0.03-0.39 BASO x10^3 (test code = 704-7) 0.03 10*3/uL 0.01-0.07 Lab Interpretation (test code = 66592-7) Abnormal [facility]. METABOLIC PANEL (63629)2023-01-12 04:12:43* Test Item Value Reference Range Interpretation Comme nts NA (test code = 3639207106) 137 mmol/L 135-145 K (test code = 6520551563) 3.4 mmol/L 3.5-5.0 L CL (test code = 9058878734) 104 mmol/L 98-108 CO2 TOTAL (test code = 3518266332) 24 mmol/L 23-31 AGAP (test code = 1885794887) 9 2-16 BUN (test code = 2825049552) 2 mg/dL 7-23 L GLUCOSE (test code = 2153607921) 92 mg/dL 70-110 CREATININE (test code = 7577113293) 0.80 mg/dL 0.50-1.04 TOTAL BILI (test code = 8536928029) 0.4 mg/dL 0.1-1.1 CALCIUM (test code = 2572288271) 8.4 mg/dL 8.6-10.6 L T PROTEIN (test code = 8165279529) 6.3 g/dL 6.3-8.2 ALBUMIN (test code = 5563950995) 3.7 g/dL 3.5-5.0 ALK PHOS (test code = 3929112549) 87 U/L 34-122 ALTv (test code = 1742-6) 27 U/L 5-35 AST(SGOT) (test code = 6104964852) 33 U/L 13-40 eGFR (test code = 4125177279) 86.0 mL/min/1.73m2 WESLEY (test code = WESLEY) [...] imaging tests). Lab Interpretation (test code = 70138-5) Abnormal [facility]. METABOLIC PANEL (04541)2023-01-12 04:12:43* Test Item Value Reference Range Interpretation Comme nts NA (test code = 5835132380) 137 mmol/L 135-145 K (test code = 2367586403) 3.4 mmol/L 3.5-5.0 L CL (test code = 1484031799) 104 mmol/L 98-108 CO2 TOTAL (test code = 9410633684) 24 mmol/L 23-31 AGAP (test code = 1400057786) 9 2-16 BUN (test code = 9067410177) 2 mg/dL 7-23 L GLUCOSE (test code = 0645471828) 92 mg/dL 70-110 CREATININE (test code = 1674952140) 0.80 mg/dL 0.50-1.04 TOTAL BILI (test code = 7387802473) 0.4 mg/dL 0.1-1.1 CALCIUM (test code = 8484123328) 8.4 mg/dL 8.6-10.6 L T PROTEIN (test code = 8530263349) 6.3 g/dL 6.3-8.2 ALBUMIN (test code = 4165049933) 3.7 g/dL 3.5-5.0 ALK PHOS (test code = 0723781985) 87 U/L 34-122 ALTv (test code = 1742-6) 27 U/L 5-35 AST(SGOT) (test code = 7660960765) 33 U/L 13-40 eGFR (test code = 9861974871) 86.0 mL/min/1.73m2 WESLEY (test code = WESLEY) [...] imaging tests). Lab Interpretation (test code = 15644-9) [facility] 04:07:04 BETA HCG<2.39Non- female and male patients: <5 mIU/mL01/11/2023 11:07 PM [facility] Gestational Age ?Range (mIU/mL) 1-10 ?Weeks ?08-02745346-12 Weeks ?55163-32240996-71 Weeks ?1050-31885298-81 Weeks ?1531-507417 Biotin has been reported to cause a negative bias, interpret results relative to patient's use of biotin. Gestational Age ?Range (mIU/mL) 1-10 ?Weeks ?50-35750370-83 Weeks ?31857-74220215-94 Weeks ?5731-38453524-29 Weeks ?1531-346901 Biotin has been reported to cause a negative bias, interpret results relative to patient's use of biotin. Gestational Age ?Range (mIU/mL) 1-10 ?Weeks ?76-13859565-84 Weeks ?23259-22651736-15 Weeks ?9533-71369211-55 Weeks ?1531-699889 Biotin has been reported to cause a negative bias, interpret results relative to patient's use of biotin.[facility] (QUANTITATIVE)2023-01-12 04:07:04BETA HCG<2.39Non- female and male patients: <5 mIU/mL01/11/2023 11:07 PM [facility] Gestational Age ?Range (mIU/mL) 1-10 ?Weeks ?07-72881178-91 Weeks ?62654-14218394-35 Weeks ?1276-04769187-06 Weeks ?1531-869166 Biotin has been reported to cause a negative bias, interpret results relative topatient's use of biotin. Gestational Age ?Range (mIU/mL) 1-10 ?Weeks ?74-46293022-51 Weeks ?46683-69635138-96 Weeks ?5246-76935100-25 Weeks?1531-000478 Biotin has been reported to cause a negative bias, interpret results relative to patient's use of biotin. Gestational Age ?Range (mIU/mL) 1-10 ?Weeks ?87-30703475-99 Weeks ?12124-18242756-03 Weeks ?1483-61485388-54 Weeks ?1531-288340 Biotin has been reported to cause a negative bias, interpretresults relative to patient's use of biotin.[facility] 2023-01-12 03:22:58* Test Item Value Reference Range Interpretation Comme nts LIPASE (test code = 9916073950) 41 U/L 0-220 Lab Interpretation (test cod e = 31238-3) Normal [facility]2023-09-02 03:22:58* Test Item Value Reference Range Interpretation Comme nts LIPASE (test code = 0245565549) 41 U/L 0-220 Lab Interpretation (test cod e = 51786-9) Normal [facility] [id number] 03:02:00* Test Item Value Reference Range Interpretation Comme nts POCT PREG (test code = 1605) Negative On board controls acceptable with C Line (test code = 3574) Yes POCT PREG LOT # (test code = 3575) [id number] POCT PREG TEST DATE ( test code = 3576) 05/15/2024 Lab Interpretation (test cod e = 35669-4) Normal [facility] [id number] 03:02:00* Test Item Value Reference Range Interpretation Comme nts POCT PREG (test code = 1605) Negative On board controls acceptable with C Line (test code = 3574) Yes POCT PREG LOT # (test code = 3575) [id number] POCT PREG TEST DATE ( test code = 3576) 05/15/2024 Lab Interpretation (test cod e = 81877-4) Normal [facility], [id number] 00:23:34* Test Item Value Reference Range Interpretation Comme nts PREG SERUM (test code = 5187701204) Negative WESLEY (test code = WESLEY) Less than 10 IU/L. ?If low titer or ectopic is suspected, resubmit specimen in 48-72 hours. [facility]. METABOLIC PANEL (68120)2022-07-31 23:58:12* Test Item Value Reference Range Interpretation Comme nts NA (test code = 1746554851) 140 mmol/L 135-145 K (test code = 1006395745) 3.6 mmol/L 3.5-5.0 CL (test code = 4556462564) 106 mmol/L 98-108 CO2 TOTAL (test code = 2008474317) 21 mmol/L 23-31 L AGAP (test code = 0913340814) 13 2-16 BUN (test code = 4950851142) 8 mg/dL 7-23 GLUCOSE (test code = 6257771055) 90 mg/dL 70-110 CREATININE (test code = 4499821801) 0.90 mg/dL 0.50-1.04 TOTAL BILI (test code = 5153938982) 0.5 mg/dL 0.1-1.1 CALCIUM (test code = 5232404179) 9.0 mg/dL 8.6-10.6 T PROTEIN (test code = 8939293024) 7.8 g/dL 6.3-8.2 ALBUMIN (test code = 6843082160) 4.6 g/dL 3.5-5.0 ALK PHOS (test code = 4597581186) 63 U/L 34-122 ALTv (test code = 1742-6) 23 U/L 5-35 AST(SGOT) (test code = 3154666189) 27 U/L 13-40 eGFR (test code = 5751772618) 75.1 mL/min/1.73m2 WESLEY (test code = WESLEY) [...] imaging tests). Lab Interpretation (test code = 58074-6) [facility]normal [facility] 23:57:32* Test Item Value Reference Range Interpretation Comme nts LIPASE (test code = 2688951024) 55 U/L 0-220 Lab Interpretation (test cod e = 62339-3) Normal [facility] [id number] 23:47:31* Test Item Value Reference Range Interpretation Comme nts WBC (test code = 6690-2) 5.64 See_Comment [Automated [employer]] The system which generated this result transmitted reference range: 4.30 - 11.10 10*3/?L. The reference range was not used to interpret this result as normal/abnormal. RBC (test code = 789-8) 4.51 See_Comment [Automated [employer] [address]] The system which generated this result transmitted [...] 32.6 g/dL 31.6-35.1 RDW-SD (test code = 00892-6) 42.5 fL 39.0-49.9 RDW-CV (test code = 788-0) 13.0 % 12.0-15.5 PLT (test code = 777-3) 339 See_Comment [Automated messa ge] The system which generated this result transmitted reference range: 166 - 358 10*3/?L. The reference range was not used to interpret this result as normal/abnormal. MPV (test code = 30266-3) 9.4 fL 9.5-12.9 L NRBC/100 WBC (test code = 3205985964) 0.0 See_Comment [Automated Prysm ssage] The system which generated this result transmitted reference range: 0.0 - 10.0 /100 WBCs. The reference range was not used to interpret this result as normal/abnormal. NRBC x10^3 (test code = 1029720111) See_Comment [Automated [employer] ge] The system which generated this result transmitted reference range: 10*3/?L. The reference range was not used to interpret this result as normal/abnormal. GRAN MAT (NEUT) % (test code = 770-8) 51.2 % IMM GRAN % (test code = 0007817694) 0.20 % LYMPH % (test code = 736-9) 36.5 % MONO % (test code = 5905-5) 5.7 % EOS % (test code = 713-8) 5.9 % BASO % (test code = 706-2) 0.5 % GRAN MAT x10^3(ANC) (test code = 6987211912) 2.89 10*3/uL 1.88-7.09 IMM GRAN x10^3 (test code = 3816795668) 0.00-0.06 LYMPH x10^3 (test code = 731-0) 2.06 10*3/uL 1.32-3.29 MONO x10^3 (test code = 742-7) 0.32 10*3/uL 0.33-0.92 L EOS x10^3 (test code = 711-2) 0.33 10*3/uL 0.03-0.39 BASO x10^3 (test code = 704-7) 0.03 10*3/uL 0.01-0.07 Lab Interpretation (test code = 82662-7) Abnormal [facility] [id number] 16:14:38* Test Item Value Reference Range Interpretation Comme nts POCT Molecular Strep (test c ode = 89623-1) Negative Negative Lab Interpretation (test cod e = 87623-0) Normal [facility] METABOLIC PANEL (85864)2022-05-05 19:35:37* Test Item Value Reference Range Interpretation Comme nts NA (test code = 6576888105) 139 mmol/L 135-145 K (test code = 6697308857) 4.4 mmol/L 3.5-5.0 CL (test code = 0567379199) 104 mmol/L 98-108 CO2 TOTAL (test code = 2812674037) 22 mmol/L 23-31 L AGAP (test code = 4696462112) 2-16 BUN (test code = 1451262578) 11 mg/dL 7-23 GLUCOSE (test code = 5658968646) 95 mg/dL 70-110 CREATININE (test code = 7869949242) 0.71 mg/dL 0.50-1.04 TOTAL BILI (test code = 5556043302) 0.4 mg/dL 0.1-1.1 CALCIUM (test code = 7461141795) 9.1 mg/dL 8.6-10.6 T PROTEIN (test code = 6766306126) 7.9 g/dL 6.3-8.2 ALBUMIN (test code = 2642256910) 4.7 g/dL 3.5-5.0 ALK PHOS (test code = 0175891378) 114 U/L 34-122 ALTv (test code = 1742-6) 21 U/L 5-35 AST(SGOT) (test code = 7855403679) 21 U/L 13-40 eGFR (test code = 0781161919) mL/min/1.73m2 WESLEY (test code = WESLEY) Association [...] imaging tests). Lab Interpretation (test code = 03050-3) Abnormal [facility] WITH [id number] 19:25:37* Test Item Value Reference Range Interpretation Comme nts WBC (test code = 6690-2) See_Comment [[employer]] The system which generated this result transmitted [...] 32.9 g/dL 31.6-35.1 RDW-SD (test code = 97234-7) 41.7 fL 39.0-49.9 RDW-CV (test code = 788-0) 12.7 % 12.0-15.5 PLT (test code = 777-3) See_Comment H [Automated messa ge] The system which generated this result transmitted reference range: 166 - 358 10*3/?L. The reference range was not used to interpret this result as normal/abnormal. MPV (test code = 92167-4) 8.8 fL 9.5-12.9 L NRBC/100 WBC (test code = 9608672605) See_Comment [Automated [employer] ssage] The system which generated this result transmitted reference range: 0.0 - 10.0 /100 WBCs. The reference range was not used to interpret this result as normal/abnormal. NRBC x10^3 (test code = 4504965579) See_Comment [Automated messa ge] The system which generated this result transmitted reference range: 10*3/?L. The reference range was not used to interpret this result as normal/abnormal. GRAN MAT (NEUT) % (test code = 770-8) 56.1 % IMM GRAN % (test code = 2220011404) 0.40 % LYMPH % (test code = 736-9) 29.9 % MONO % (test code = 5905-5) 5.4 % EOS % (test code = 713-8) 7.8 % BASO % (test code = 706-2) 0.4 % GRAN MAT x10^3(ANC) (test code = 3170359924) 3.75 10*3/uL 1.88-7.09 IMM GRAN x10^3 (test code = 1170954381) 0.03 10*3/uL 0.00-0.06 LYMPH x10^3 (test code = 731-0) 2.00 10*3/uL 1.32-3.29 MONO x10^3 (test code = 742-7) 0.36 10*3/uL 0.33-0.92 EOS x10^3 (test code = 711-2) 0.52 10*3/uL 0.03-0.39 H BASO x10^3 (test code = 704-7) 0.03 10*3/uL 0.01-0.07 Lab Interpretation (test code = 23846-7) [facility] AT[facility]48[facility]60 19:00:00* Test Item Value Reference Range Interpretation Comme nts POCT PREG (test code = 1605) negative On board controls acceptable with C Line (test code = 3574) present POCT PREG LOT # (test code = 3575) [id number] POCT PREG TEST DATE ( test code = 3576) 08-11-2023 Lab Interpretation (test cod e = 39882-2) Normal [facility] WITH PHJO3921-04-36 15:21:11* Test Item Value Reference Range Interpretation Comme nts WBC (test code = 6690-2) See_Comment [Automated [employer]] The system which generated this result transmitted reference range: 4.30 - 11.10 10*3/?L. The reference range was not used to interpret this result as normal/abnormal. RBC (test code = 789-8) See_Comment [Autom[employer]] The system which generated this result [...] 33.0 g/dL 31.6-35.1 RDW-SD (test code = 28206-9) 42.6 fL 39.0-49.9 RDW-CV (test code = 788-0) 12.9 % 12.0-15.5 PLT (test code = 777-3) See_Comment H [Automated messa ge] The system which generated this result transmitted reference range: 166 - 358 10*3/?L. The reference range was not used to interpret this result as normal/abnormal. MPV (test code = 59056-3) 9.1 fL 9.5-12.9 L NRBC/100 WBC (test code = 6004823500) See_Comment [Automated [employer] ssage] The system which generated this result transmitted reference range: 0.0 - 10.0 /100 WBCs. The reference range was not used to interpret this result as normal/abnormal. NRBC x10^3 (test code = 6720315992) See_Comment [Autom[employer]] The system which generated this result transmitted reference range: 10*3/?L. The reference range was not used to interpret this result as normal/abnormal. GRAN MAT (NEUT) % (test code = 770-8) 56.8 % IMM GRAN % (test code = 9052043968) 0.30 % LYMPH % (test code = 736-9) 29.5 % MONO % (test code = 5905-5) 4.3 % EOS % (test code = 713-8) 8.3 % BASO % (test code = 706-2) 0.8 % GRAN MAT x10^3(ANC) (test code = 9246146453) 3.57 10*3/uL 1.88-7.09 IMM GRAN x10^3 (test code = 9336867659) 0.00-0.06 LYMPH x10^3 (test code = 731-0) 1.85 10*3/uL 1.32-3.29 MONO x10^3 (test code = 742-7) 0.27 10*3/uL 0.33-0.92 L EOS x10^3 (test code = 711-2) 0.52 10*3/uL 0.03-0.39 H BASO x10^3 (test code = 704-7) 0.05 10*3/uL 0.01-0.07 Lab Interpretation (test code = 71295-5) [facility] (64691)2022-04-26 15:12:13* Test Item Value Reference Range Interpretation Comme nts NA (test code = 4131976505) 141 mmol/L 135-145 K (test code = 7147071055) 3.4 mmol/L 3.5-5.0 L CL (test code = 4409565203) 104 mmol/L 98-108 CO2 TOTAL (test code = 8183884340) 23 mmol/L 23-31 AGAP (test code = 9453191094) 2-16 BUN (test code = 0194502534) 9 mg/dL 7-23 GLUCOSE (test code = 3124853185) 101 mg/dL 70-110 CREATININE (test code = 6222609432) 0.82 mg/dL 0.50-1.04 TOTAL BILI (test code = 6227018579) 0.7 mg/dL 0.1-1.1 CALCIUM (test code = 0596558355) 9.3 mg/dL 8.6-10.6 T PROTEIN (test code = 7924561533) 8.1 g/dL 6.3-8.2 ALBUMIN (test code = 7852850613) 4.7 g/dL 3.5-5.0 ALK PHOS (test code = 1772071257) 108 U/L 34-122 ALTv (test code = 1742-6) 24 U/L 5-35 AST(SGOT) (test code = 4886732283) 49 U/L 13-40 H eGFR (test code = 4318786442) mL/min/1.73m2 WESLEY (test code = WESLEY) Association [...] imaging tests). Lab Interpretation (test code = 23384-5) Abnormal [facility] LCBV1344-44-27 14:45:00* Test Item Value Reference Range Interpretation Comme nts POCT PREG (test code = 1605) negative On board controls acceptable with C Line (test code = 3574) present POCT PREG LOT # (test code = 3575) [id number] POCT PREG TEST DATE ( test code = 3576) 08/11/2023 Lab Interpretation (test cod e = 95195-8) Normal [facility] DCLW7238-97-22 01:22:00* Test Item Value Reference Range Interpretation Comme nts POCT PREG (test code = 1605) Negative On board controls acceptable with C Line (test code = 3574) Present POCT PREG LOT # (test code = 3575) [id number] POCT PREG TEST DATE ( test code = 3576) 08-11-2023 Lab Interpretation (test cod e = 78819-6) Normal [facility] METABOLIC PANEL (NA, K, CL, CO2, GLUCOSE, BUN, CREATININE, CA)2022-04-07 23:01:10* Test Item Value Reference Range Interpretation Comme nts NA (test code = 7291162344) 138 mmol/L 135-145 K (test code = 4540224687) 4.3 mmol/L 3.5-5.0 CL (test code = 5380367770) 107 mmol/L 98-108 CO2 TOTAL (test code = 3579620342) 20 mmol/L 23-31 L AGAP (test code = 7321472186) 2-16 BUN (test code = 4676482881) 9 mg/dL 7-23 GLUCOSE (test code = 0158298932) 204 mg/dL 70-110 H CREATININE (test code = 4937740423) 0.74 mg/dL 0.50-1.04 CALCIUM (test code = 8495584901) 9.1 mg/dL 8.6-10.6 eGFR (test code = 0091813336) mL/min/1.73m2 WESLEY (test code = WESLEY) Association [...] imaging tests). Lab Interpretation (test code = 31870-5) Abnormal [facility] WITH SCPY0949-54-20 22:57:34* Test Item Value Reference Range Interpretation [...] 33.5 g/dL 31.6-35.1 RDW-SD (test code = 11863-3) 42.9 fL 39.0-49.9 RDW-CV (test code = 788-0) 13.4 % 12.0-15.5 PLT (test code = 777-3) See_Comment H [Automated messa ge] The system which generated this result transmitted reference range: 166 - 358 10*3/?L. The reference range was not used to interpret this result as normal/abnormal. MPV (test code = 91041-2) 8.9 fL 9.5-12.9 L NRBC/100 WBC (test code = 6712141538) See_Comment [Automated me ssage] The system which generated this result transmitted reference range: 0.0 - 10.0 /100 WBCs. The reference range was not used to interpret this result as normal/abnormal. NRBC x10^3 (test code = 5132404740) See_Comment [Automated messa ge] The system which generated this result transmitted reference range: 10*3/?L. The reference range was not used to interpret this result as normal/abnormal. GRAN MAT (NEUT) % (test code = 770-8) 88.7 % IMM GRAN % (test code = 9422952168) 0.70 % LYMPH % (test code = 736-9) 9.4 % MONO % (test code = 5905-5) 0.9 % EOS % (test code = 713-8) 0.1 % BASO % (test code = 706-2) 0.2 % GRAN MAT x10^3(ANC) (test code = 9045733324) 7.81 10*3/uL 1.88-7.09 H IMM GRAN x10^3 (test code = 3899574207) 0.06 10*3/uL 0.00-0.06 LYMPH x10^3 (test code = 731-0) 0.83 10*3/uL 1.32-3.29 L MONO x10^3 (test code = 742-7) 0.08 10*3/uL 0.33-0.92 L EOS x10^3 (test code = 711-2) 0.03-0.39 L BASO x10^3 (test code = 704-7) 0.01-0.07 Lab Interpretation (test code = 78109-7) Abnormal [facility] HJVQ6948-38-36 14:07:00* Test Item Value Reference Range Interpretation Comme nts POCT PREG (test code = 1605) negative On board controls acceptable with C Line (test code = 3574) present POCT PREG LOT # (test code = 3575) [id number] POCT PREG TEST DATE ( test code = 3576) 08/11/2023 Lab Interpretation (test cod e = 88236-3) Normal [facility] MUCA1225-15-44 13:52:00* Test Item Value Reference Range Interpretation Comme nts POCT PREG (test code = 1605) negative On board controls acceptable with C Line (test code = 3574) present Lab Interpretation (test cod e = 02744-9) Normal [facility] GNVE2486-39-06 14:59:00* Test Item Value Reference Range Interpretation Comme nts POCT PREG (test code = 1605) negative On board controls acceptable with C Line (test code = 3574) yes POCT PREG LOT # (test code = 3575) [id number] POCT PREG TEST DATE ( test code = 3576) 07/11/2023 Lab Interpretation (test cod e = 67026-5) [facility] (65402)2022 17:51:43* Test Item Value Reference Range Interpretation Comme nts NA (test code = 7829588236) 139 mmol/L 135-145 K (test code = 0198273167) 4.1 mmol/L 3.5-5 CL (test code = 9313900151) 104 mmol/L 98-108 CO2 TOTAL (test code = 5755638786) 22 mmol/L 23-31 L AGAP (test code = 1795482000) 2-16 BUN (test code = 3274696006) 7 mg/dL 7-23 GLUCOSE (test code = 5708217406) 114 mg/dL 70-110 H CREATININE (test code = 6578332703) 0.69 mg/dL 0.5-1.04 TOTAL BILI (test code = 9036968302) 0.4 mg/dL 0.1-1.1 CALCIUM (test code = 0704696813) 9.7 mg/dL 8.6-10.6 T PROTEIN (test code = 5246740863) 7.2 g/dL 6.3-8.2 ALBUMIN (test code = 6769144766) 4.6 g/dL 3.5-5 ALK PHOS (test code = 5500916363) 65 U/L 34-122 ALTv (test code = 1742-6) 15 U/L 5-35 AST(SGOT) (test code = 2070724931) 19 U/L 13-40 eGFR (test code = 4072543882) mL/min/1.73m2 WESLEY (test code = WESLEY) Association [...] imaging tests). Lab Interpretation (test code = 22282-3) Abnormal [facility] WITH OKLG5655-12-36 17:40:24* Test Item Value Reference Range Interpretation Comme nts WBC (test code = 6690-2) See_Comment [[employer]] The system which generated this result transmitted reference range: 4.30 - 11.10 10*3/?L. The reference range was not used to interpret this result as normal/abnormal. RBC (test code = 789-8) See_Comment [[employer]] The system which generated this result transmitted [...] 33.3 g/dL 31.6-35.1 RDW-SD (test code = 20104-1) 43.1 fL 39-49.9 RDW-CV (test code = 788-0) 13.2 % 12-15.5 PLT (test code = 777-3) See_Comment [Automated [employer]] The system which generated this result transmitted reference range: 166 - 358 10*3/?L. The reference range was not used to interpret this result as normal/abnormal. MPV (test code = 36076-2) 9.5 fL 9.5-12.9 NRBC/100 WBC (test code = 5775659036) See_Comment [Automated [employer] ssage] The system which generated this result transmitted reference range: 0.0 - 10.0 /100 WBCs. The reference range was not used to interpret this result as normal/abnormal. NRBC x10^3 (test code = 6926043336) See_Comment [Automated [employer]] The system which generated this result transmitted reference range: 10*3/?L. The reference range was not used to interpret this result as normal/abnormal. GRAN MAT (NEUT) % (test code = 770-8) 57.8 % IMM GRAN % (test code = 8995106561) 0.20 % LYMPH % (test code = 736-9) 30.8 % MONO % (test code = 5905-5) 5.1 % EOS % (test code = 713-8) 5.6 % BASO % (test code = 706-2) 0.5 % GRAN MAT x10^3(ANC) (test code = 2725022674) 3.61 10*3/uL 1.88-7.09 IMM GRAN x10^3 (test code = 2819021191) 0-0.06 LYMPH x10^3 (test code = 731-0) 1.92 10*3/uL 1.32-3.29 MONO x10^3 (test code = 742-7) 0.32 10*3/uL 0.33-0.92 L EOS x10^3 (test code = 711-2) 0.35 10*3/uL 0.03-0.39 BASO x10^3 (test code = 704-7) 0.03 10*3/uL 0.01-0.07 Lab Interpretation (test code = 32765-8) Abnormal [facility] RZAM7262-51-70 17:27:00* Test Item Value Reference Range Interpretation Comme nts POCT PREG (test code = 1605) negative On board controls acceptable with C Line (test code = 3574) present POCT PREG LOT # (test code = 3575) [id number] POCT PREG TEST DATE ( test code = 3576) Lab Interpretation (test cod e = 06206-6) [facility] 12:45:21* Test Item Value Reference Range Interpretation Comme nts LIPASE (test code = 9077158110) 41 U/L 0-220 Lab Interpretation (test cod e = 33215-4) [facility] MUDT2049-07-86 10:57:00* Test Item Value Reference Range Interpretation Comme nts POCT PREG (test code = 1605) Negative On board controls acceptable with C Line (test code = 3574) Present POCT PREG LOT # (test code = 3575) [id number] POCT PREG TEST DATE ( test code = 357) 03/12/2023 Lab Interpretation (test cod e = 73426-8) [facility] (NA, K, CL, CO2, GLUCOSE, BUN, CREATININE, CA)2022-01-18 10:56:51* Test Item Value Reference Range Interpretation Comme nts NA (test code = 1622110340) 137 mmol/L 135-145 K (test code = 7225857236) 4.6 mmol/L 3.5-5 Slight hemolysis CL (test code = 8466102005) 108 mmol/L 98-108 CO2 TOTAL (test code = 4577037838) 22 mmol/L 23-31 L AGAP (test code = 4170177704) 2-16 BUN (test code = 3245020008) 11 mg/dL 7-23 Slight hemolysis GLUCOSE (test code = 8231951638) 83 mg/dL 70-110 CREATININE (test code = 8758014430) 0.68 mg/dL 0.5-1.04 CALCIUM (test code = 3130831744) 8.8 mg/dL 8.6-10.6 eGFR (test code = 5317977660) mL/min/1.73m2 WESLEY (test code = WESLEY) Association [...] imaging tests). Lab Interpretation (test code = 94605-0) [facility]normal [facility] CenterHEPAT[facility] FUNCTION PANEL (34661) (ALB,T.PRO,BILI T,BU/BC,ALT,AST,ALK PHOS)2022-01-18 10:56:51* Test Item Value Reference Range Interpretation Comme nts TOTAL BILI (test code = 1120742094) 0.6 mg/dL 0.1-1.1 BILI UNCON (test code = 4719044115) 0.1 mg/dL 0.1-1.1 BILI CONJ (test code = 7066713520) 0.0 mg/dL 0-0.3 T PROTEIN (test code = 4262380215) 8.6 g/dL 6.3-8.2 H ALBUMIN (test code = 8498543233) 5.1 g/dL 3.5-5 H ALK PHOS (test code = 4180169471) 79 U/L 34-122 ALTv (test code = 1742-6) 117 U/L 5-35 H AST(SGOT) (test code = 3779311496) 163 U/L 13-40 H Lab Interpretation (test cod e = 76187-5) Abnormal [facility] CenterP[facility] TEST, LFEYQ3018-76-40 10:54:25* Test Item Value Reference Range Interpretation Comme nts PREG SERUM (test code = 0752095242) Negative WESLEY (test code = WESLEY) Less than 10 IU/L. ?If low titer or ectopic is suspected, resubmit specimen in 48-72 hours. [facility] CenterCBC WITH WVQV8005-00-58 10:40:49* Test Item Value Reference Range Interpretation Comme nts WBC (test code = 6690-2) See_Comment [Automated [employer]] The system which generated this result transmitted reference range: 4.30 - 11.10 10*3/?L. The reference range was not used to interpret this result as normal/abnormal. RBC (test code = 789-8) See_Comment [Automated [employer]] The system which generated this result [...] 33.6 g/dL 31.6-35.1 RDW-SD (test code = 80869-6) 45.3 fL 39-49.9 RDW-CV (test code = 788-0) 14.5 % 12-15.5 PLT (test code = 777-3) See_Comment [Automated [employer]] The system which generated this result transmitted reference range: 166 - 358 10*3/?L. The reference range was not used to interpret this result as normal/abnormal. MPV (test code = 30305-2) 9.5 fL 9.5-12.9 NRBC/100 WBC (test code = 3291211278) See_Comment [Automated me ssage] The system which generated this result transmitted reference range: 0.0 - 10.0 /100 WBCs. The reference range was not used to interpret this result as normal/abnormal. NRBC x10^3 (test code = 2792064798) See_Comment [Automated messa ge] The system which generated this result transmitted reference range: 10*3/?L. The reference range was not used to interpret this result as normal/abnormal. GRAN MAT (NEUT) % (test code = 770-8) 47.6 % IMM GRAN % (test code = 9473870090) 0.60 % LYMPH % (test code = 736-9) 39.9 % MONO % (test code = 5905-5) 5.9 % EOS % (test code = 713-8) 5.3 % BASO % (test code = 706-2) 0.7 % GRAN MAT x10^3(ANC) (test code = 1531175938) 4.45 10*3/uL 1.88-7.09 IMM GRAN x10^3 (test code = 1646145290) 0.06 10*3/uL 0-0.06 LYMPH x10^3 (test code = 731-0) 3.74 10*3/uL 1.32-3.29 H MONO x10^3 (test code = 742-7) 0.55 10*3/uL 0.33-0.92 EOS x10^3 (test code = 711-2) 0.50 10*3/uL 0.03-0.39 H BASO x10^3 (test code = 704-7) 0.07 10*3/uL 0.01-0.07 Lab Interpretation (test code = 01337-1) Abnormal [facility] XDTO6644-73-26 18:31:00* Test Item Value Reference Range Interpretation Comme nts POCT PREG (test code = 1605) Negative On board controls acceptable with C Line (test code = 3574) Yes POCT PREG LOT # (test code = 3575) POCT PREG TEST DATE ( test code = 3576) [facility] URINALYSIS W/O SPECIFIC ZNGXKWU6818-80-72 18:31:00* Test Item Value Reference Range Interpretation [...] = 3257) Trace Negative - Negati ve [facility] Consult Notes Date/Time Note Provider Source 2023-01-12 00:12:43 Ys5ZcCP9T7eDE6sA0Lmp V8FMafBr1yz44tBzds/e/i LLdZRzwZEZsgvUXxTkthui2216-16-25E38:12:43A ssociated Order(s): CONSULT GENERAL SURGERY TRAUMA/ACS Surgery [...] symptomatic cholelithiasis 1.5 months ago at OSH ([place]). Pt states that she has had persistent RUQ pain with nausea and po intolerance along with intermittent chills and vomiting since surgery. Was seen by PCP and instructed to come to [facility] ED for further evaluation. Review [...] History:Past Surgical History: Procedure Laterality Date SECTION 2015 SECTION N/A 07/21/2019 Surgeon: Prasanna Vargas MD; Location: [facility] Labor [facility] Delivery OR Location TUBAL LIGATION N/A 07/21/2019 Surgeon: Prasanna Vargas MD; Location: [facility] Labor [facility] Delivery OR Location Family [...] skin once every month. 1 mL 3 Tzdxsgvmgx-Dhkgucxgoplbq-Atub (FIORICET) 50-300-40 mg per capsule Take 1 [...] symptomatic cholelithiasis 1.5 months ago at OSH ([place]).Plan:Admission to [facility] serviceConsult IR for percutaneous drainage [...] pain, nausea, anorexia since lap pasquale at [facility] on 12/01/22 with noted venous bleeding [...] Surgery, and Surgical Critical Care In-house Pager: [phone] [id number], Amy1.2.840.340601.1.13.104.2.7.2.100916Pgu lqqJdzOE1422-00-89T53:39:26Consult noteTXT1.2.840.688052.1.13.104.2.7.2.49080 9|[id number] for patient jkhp83276-0Dyakmar noteLNUTMBLOVELACE MEDICAL CENTER - [address] Schs[id number] RNAKUYKZBGRNQQAF9606-37-05N61:39:261.2.840 .940982.1.72.3.15|1.2.840.815685.1.13.104. 2.7.2.727879_[id number] [facility] - Health History and Physical Notes Date/Time Note Provider Source 2023-01-12 01:05:04 eYIPvcyB+g+r3Qru7ELE 3ZTb2EWHlg47OaczDC6Gww Kghm+MgwXgqrfC/kYSLN5/4365-13-83E91:05:04F ormatting of this note might be different from the original.01/12/23 1:05 AM Please refer to consult note written by Rodolfo Riggins DO on 01/12/23 for complete H&P.NITESH Gandara-2 Surgery Resident ssociated attestation - Mirella Vergara MD - 01/12/2023 1:47 AM CDT Pwkeu87083-2Jfatzeg and physical xidvPG0760818Xbwjvh, Amy1.2.840.819738.1.13.104.2.7.2.873833Uwm ajoMqmLJ5262-56-03D63:47:52History and physical noteTXT1.2.840.845703.1.13.104.2.7.2.00216 9|[id number] for patient waay30091-0Ckjalev and physical noteLNUT[address] VwqsOfzhunjxqIeunneostHOBZ3040625805VPXWLA BSXFUGXDPFRHMFTK4242-60-64G55:47:521.2.840 .646225.1.72.3.15|1.2.840.390070.1.13.104. 2.7.2.727879_[id number] [facility] Notes Date/Time Note Provider Source 2023-05-19 12:16:00 fJP4O43tdHkAYUV39f2Q /VCC/ZAWghKBn VfA6N2lP4/CkKAGz5M92nxgkkItqF7O43 05-06-06T12:16:00 Pt given printed and verbal discharge [...] with steady gait, in no apparent distress. 02948-3Chorsvaba department LykqNM5512-46-44T41:20:15[facility] NoteTXT1.2.840.333296.1.13.104.2. 7.2.550156|[id number] for patient nmyj85095-8CirtQVDPJMFHSIHAugtcol ed C-CDA narrative textUT[address] DpuxMaqfixudcLkoafynfhQXYS3731054 010MGZZAXHVCIEELAFOFNUZHB4670-12- 07T12:20:151.2.840.968956.1.72.3. 15|1.2.840.602559.1.13.104.2.7.2. 727879_[id number] [facility] 2023-05-19 08:50:00 2NfJcLQIWBGl9jGfWRNw bOXOA8a18vLAG 5RHG0Vqi85zfA0h67zrbTbGySQk1/ui20 05-06-06T08:50:00 Patient came in with complaints of epigastric pain that radiates to her left shoulder associated with nausea and vomiting since a couple of weeks now. Patient states that she was worked up in [facility] ER 2 weeks ago and found nothing wrong, just referred to a GI doctor but she hasn't seen one because she has no insurance. 87243-5Nnaubjigw department Triage ddegBE6734-38-34O13:01:49Emergen y department Triage noteTXT1.2.840.900389.1.13.104.2. 7.2.685073|[id number] for patient awek77696-0Ysprcbmnv department NoteLNNARRATIVEFormatted C-CDA narrative gtbb491339951Zxofcwyt Jessica Ruiz RN[address] KavoJbfpiknvnUwzynjbwqUBOF9069352 088TWJSPHLZFHBRIWJZLTBMFB5967-43- 07T09:01:491.2.840.261716.1.72.3. 15|1.2.840.403050.1.13.104.2.7.2. 727879_[id number] Syeda Jessica Ruiz RN [facility] 2023-01-16 10:56:45 2a1zWVgKUjaQvocX7vig je4kPAPMuvu6K AnH36Auw8FbUxdJs64qz+AAsqdL6Ql133 02-02-06T10:56:45 TRANSITIONAL CARE MANAGEMENT ASSESSMENT01/16/2023 Nikko DysonJcieltt445027GOicjv Nelia Dyson is a 27 year old /White female was admitted on 01/11/[address] She was discharged on 01/15/23 with discharge disposition of HR- Routine Discharge.Admitting Physician: Misty Steele Diagnosis: Postprocedural intraabdominal abscess [T81.43XA]Pt. Verbalized understanding discharge instructions. Plans to f/u with pcp.Linked Episodes Type: Episode: Status: Noted: Resolved: Last update: Updated by: TRANSITION OF CARE tcm Active 01/16/2023 01/16/2023 10:56 AM Marlys Odell LVN Comments: TCM Zfq-ajea-rc-face outreach documentation:Discharge AssessmentChart Assessed: 01/16/23TCM Outreach Completed: [...] with the names or descriptions of any fuzm-kjd-iscfoib or supplements you are currently taking?: YesSuppliesDid [...] or concerns at this time?: NoFuture Appointments: 75182-0Omchgnwel encounter ZfwwNP1687-12-35T33:57:41Telephon e encounter NoteTXT1.2.840.589886.1.13.104.2. 7.2.428508|[id number] for patient huat31994-0GxfjZX709493154Ybifelu ana Odell [address] XudjErwpubaghOrhvkadrsYMWK9813819 018VRKMYFKKFLXOHKFAILREEO9374-70- 06T10:57:411.2.840.699035.1.72.3. 15|1.2.840.933113.1.13.104.2.7.2. 727879_[id number] Marlys Odell [facility] 2023-01-15 18:18:34 cDuTnJdhqgf3qmsPXbAq TvxjZAfxQkxGz vtiVEQkvQLPjmruUz/MbZOQPyW2ZxZi60 02-02-05T18:18:34 Patient is cleared for discharge. Problem: Infection RiskGoal: Absence of infection01/15/20231817 by Vero Cresw RNOutcome: Adequate for discharge01/15/20231817 by Vero Crews [...] by Vero Crews RNOutcome: Progressing as expected 89139-4Btqt of care yyqxNJ5035-60-88U79:18:58Plan of care noteTXT1.2.840.519784.1.13.104.2. 7.2.297150|[id number] for patient clte43689-9JshtHQKFJPIUYI[id number] 770DHEYKWIAIXABBBUHZNBCUC3550-61- 05T18:18:581.2.840.203518.1.72.3. 15|1.2.840.997515.1.13.104.2.7.2. [id number] [facility] 2023-01-15 15:08:00 JUSrD2sbNqV/D9pUMHn6 ye9X6cbAO4uHT jtgQlEtwMaI3Gh56ZZq4YX46VHFLWVv71 02-02-055:08:00 Called outpatient pharmacy and spoke to Maggi. [facility] will bring patient's medications to her room within 45min to an hour. 55086-3Snaev RdirSU3352-93-12O91:49:16Nurse NoteTXT1.2.840.805028.1.13.104.2. 7.2.588792|[id number] for patient pioi23993-9Vgnyt PgzhWI061620409Lehhzdl R Hanegan RN[id number] 283ALJKFVMOHSDRETWERGQAPQ5688-15- 05T15:49:161.2.840.887292.1.72.3. 15|1.2.840.026247.1.13.104.2.7.2. 727879_[id number] Vero Cresw RN [facility] 2023-01-15 13:11:00 IygqfnxiK1b1J1OqHHBK xhJdqGLhAJlB2 TBzur/VpGC+Mj69ZMa/jXD7DMiVGwVg47 02-02-053:11:00 Problem: Infection RiskGoal: Absence of infectionOutcome: Progressing as expected Problem: PainGoal: Control of pain at or below patient's documented comfort goalOutcome: Progressing as expectedGoal: Reduction in pain sensationOutcome: Progressing as expected Problem: Discharge PlanningGoal: Adequate for dischargeOutcome: Progressing as expectedGoal: Effective communicationOutcome: Progressing as expected 50256-4Gkhm of care npkfXI6832-13-11U43:11:04Plan of care noteTXT1.2.840.843051.1.13.104.2. 7.2.453870|[id number] for patient cxcp42673-1NjhdSJXQSTXSHH[id number] 402CPYBFOHWTTQBEAWTIKABSF7303-07- 05T13:11:041.2.840.695435.1.72.3. 15|1.2.840.897447.1.13.104.2.7.2. 727879_[id number] [facility] 2023-01-15 06:25:22 V5ko1hCt4VYOKiefyJHF YDCfqMeP6UH36 7QReLe4FjbsNcaySQtfepZuskvYHXQb63 02-02-0506:25:22 Problem: Infection RiskGoal: Absence of infectionOutcome: Progressing as expected Problem: PainGoal: Control of pain at or below patient's documented comfort goalOutcome: Progressing as expectedGoal: Reduction in pain sensationOutcome: Progressing as expected Problem: Discharge PlanningGoal: Adequate for dischargeOutcome: Progressing as expectedGoal: Effective communicationOutcome: Progressing as expected 60883-2Jtbv of care fingEX9519-58-04Y28:25:24Plan of care noteTXT1.2.840.912274.1.13.104.2. 7.2.397566|[id number] for patient [id number] M Andrews RN[address]TXTX[address] 963VSNHVVUJVYYRTDJMKTHXVS4628-87- 05T06:25:241.2.840.075200.1.72.3. 15|1.2.840.975233.1.13.104.2.7.2. [id number] Katy Means [facility] 2023-01-14 09:27:52 buXhs/rsm9S1eO/54kjR xOAu+5VBL79HS O9JE8TA4YUk7zf8UCzfp8f4CNNiVGqo20 03-02-0409:27:52 Problem: Infection RiskGoal: Absence of infectionOutcome: Progressing as expected Problem: PainGoal: Control of pain at or below patient's documented comfort goalOutcome: Progressing as expectedGoal: Reduction in pain sensationOutcome: Progressing as expected Problem: Discharge PlanningGoal: Adequate for dischargeOutcome: Progressing as expectedGoal: Effective communicationOutcome: Progressing as expected 12027-6Ffky of care whqkWU9154-66-19Q71:27:55Plan of care noteTXT1.2.840.068373.1.13.104.2. 7.2.671516|[id number] for patient xctt23623-2HpbnAH724051008Nero W Martinez RN[address]TXTX[address] 402QSLCQKOERFYHFQMIIHFSDM2088-22- 04T09:27:551.2.840.874480.1.72.3. 15|1.2.840.166354.1.13.104.2.7.2. [id number] Charles Win RN [facility] 2023-01-13 22:20:47 nQLETXYE3Sz9bx7/ACpd UGBpV8jAdz7An F0CRVWO/Tp6RCBr46IiMgIjDFT9qSJi88 02-02-03T22:20:47 Notified MD by page due to double dose of Tylenol being given. Per MD Brito no more Tylenol to be given for tonight. 10941-0Immyx ZlbzOE9247-68-12R45:25:15Nurse NoteTXT1.2.840.663952.1.13.104.2. 7.2.788300|[id number] for patient wbjy74348-1XioqLWGRFNBPEK[address] 878EPVMGCHSVBGSOLTSHBUAKM2028-01- 03T22:25:151.2.840.562674.1.72.3. 15|1.2.840.064584.1.13.104.2.7.2. [id number] [facility] 2023-01-13 21:55:20 Of9CQQmcYP7CQwrrBbD/ G4NpRkHSHDI70 1tK+B98Ria19gNc7kRBnFJo9g9M6RoK21 02-02-03T21:55:20 Problem: Infection RiskGoal: Absence of infectionOutcome: Progressing as expected Problem: PainGoal: Control of pain at or below patient's documented comfort goalOutcome: Progressing as expectedGoal: Reduction in pain sensationOutcome: Progressing as expected Problem: Discharge PlanningGoal: Adequate for dischargeOutcome: Progressing as expectedGoal: Effective communicationOutcome: Progressing as expected 42816-8Odxf of care plqqJF0646-05-57A00:55:38Plan of care noteTXT1.2.840.715564.1.13.104.2. 7.2.441821|[id number] for patient [address] 867DUWDAICQKHQOPVCKXJBUZT8772-92- 03T21:55:381.2.840.309485.1.72.3. 15|1.2.840.794750.1.13.104.2.7.2. 727879_[id number] [facility] 2023-01-13 08:20:43 YOftsdgina/PmmvJQfO5M3 3RYwHNjdvMZ7e Z+aqPtuJChcLtNxz6NhxV/Tq4vwsA3594 02-02-03T08:20:43 Problem: Infection RiskGoal: Absence of infectionOutcome: Progressing as expected Problem: PainGoal: Control of pain at or below patient's documented comfort goalOutcome: Progressing as expectedGoal: Reduction in pain sensationOutcome: Progressing as expected Problem: Discharge PlanningGoal: Adequate for dischargeOutcome: Progressing as expectedGoal: Effective communicationOutcome: Progressing as expected 40980-8Oilw of care yqblPN3541-02-21K81:20:46Plan of care noteTXT1.2.840.233309.1.13.104.2. 7.2.628284|[id number] for patient [address] 408DJNUPHQKJRVUHTIUZQMMFW8648-89- 03T08:20:461.2.840.765685.1.72.3. 15|1.2.840.396682.1.13.104.2.7.2. 727879_[id number] [facility] 2023-01-12 20:10:08 ZfUFHK5HW8wim7IBssiU 5bxqtM/oLtLn3 D19v+9gzxEeF4zDM+GhjkCSft60yewW84 02-02-02T20:10:08 Problem: Infection RiskGoal: Absence of infectionOutcome: Progressing as expected Problem: PainGoal: Control of pain at or below patient's documented comfort goalOutcome: Progressing as expectedGoal: Reduction in pain sensationOutcome: Progressing as expected Problem: Discharge PlanningGoal: Adequate for dischargeOutcome: Progressing as expectedGoal: Effective communicationOutcome: Progressing as expected 38573-6Xinc of care dqgwPH8896-47-67M11:10:14Plan of care noteTXT1.2.840.248946.1.13.104.2. 7.2.772266|[id number] for patient jdef90076-4TlukGVXSMZOUMX[address]TXTX[address] 148NUGEWXUDFNSOVCZRHUXTSQ7776-34- 02T20:10:141.2.840.382651.1.72.3. 15|1.2.840.657403.1.13.104.2.7.2. 727879_[id number] [facility] 2023-01-12 09:28:38 vLTO7w0ObLAy86TUDW+m MgCL6EzCUSiDp 3phMOUI1HkS4k5PE6KuF8t3/R3hd0nD02 02-02-02T09:28:38 Problem: Infection RiskGoal: Absence of infectionOutcome: Progressing as expected Problem: PainGoal: Control of pain at or below patient's documented comfort goalOutcome: Progressing as expectedGoal: Reduction in pain sensationOutcome: Progressing as expected Problem: Discharge PlanningGoal: Adequate for dischargeOutcome: Progressing as expectedGoal: Effective communicationOutcome: Progressing as expected 17150-9Kddn of care ghhhVF1418-86-45K34:28:40Plan of care noteTXT1.2.840.975160.1.13.104.2. 7.2.242639|[id number] for patient [address] 694FWTKDQRXOLNCGYZYPBYAVP9280-59- 02T09:28:401.2.840.791074.1.72.3. 15|1.2.840.183004.1.13.104.2.7.2. 727879_[id number] [facility] 2023-01-12 05:17:00 SJFZiLyW8iDHCsOX+WxE fhY7cd24tb9ky a57WzZKSuTEnQzrT99M3xr+ctmp6jBJ07 02-02-02T05:17:00 Problem: Infection RiskGoal: Absence of infectionOutcome: Progressing as expected Problem: PainGoal: Control of pain at or below patient's documented comfort goalOutcome: Progressing as expectedGoal: Reduction in pain sensationOutcome: Progressing as expected Problem: Discharge PlanningGoal: Adequate for dischargeOutcome: Progressing as expectedGoal: Effective communicationOutcome: Progressing as expected 63678-4Cyyx of care iawxJJ2457-78-33O58:17:08Plan of care noteTXT1.2.840.135627.1.13.104.2. 7.2.247866|[id number] for patient [address] 007OXDVQHZRJPFBYWZSKOIPDT0710-58- 02T05:17:081.2.840.897007.1.72.3. 15|1.2.840.123060.1.13.104.2.7.2. 727879_[id number] [facility] 2023-01-12 01:43:06 k+iM3uUp4/1+CqHTAYxb CLE7fbdbeVITk wam5tfNQez9x3fWSwsQ5UiLV9B6wOZZ21 02-02-02T01:43:06 Report to lisy CURRIE on 9C. Pt awaiting transport 07432-6Kvfaxmban department SqpqST3097-99-60Y77:43:18[facility] y department NoteTXT1.2.840.301333.1.13.104.2. 7.2.759364|[id number] for patient knul46633-2ZfoaID028130604Hxngc Bakari CURRIE[address] 093APUBGYQDCKLQXXPUCRSNQS2631-19- 02T01:43:181.2.840.581273.1.72.3. 15|1.2.840.363950.1.13.104.2.7.2. 727879_[id number] Melvin Villegas RN [facility] 2023-01-12 01:10:30 S8Mz06TF3lCAm7GTGuyx h0rj8PrztIph7 j5bibSH/7zNudwsZw5nahcbEQSxrN5B23 02-02-02T01:10:30 Attempted report, nurse unavailable, left callback number [id number] department GlgmHC1326-27-81S18:10:42[facility] NoteTXT1.2.840.996008.1.13.104.2. 7.2.495576|[id number] for patient jrkj55608-8QczsIPMASYOYYH[address]TXTX[address] 656XOFSUWBFCKGKMETFAVSQDF3375-85- 02T01:10:421.2.840.036319.1.72.3. 15|1.2.840.702329.1.13.104.2.7.2. 727879_[id number] [facility] 2023-01-12 00:24:49 T6FIhcm8fCt935mMuHF+ zoya/FPoc4xW0H y317syx6ZO+Carrera+H7wfqUi6ta6YgYMGA38 02-02-02T00:24:49 Surgery at bedside 53004-7Tstszpeqx department EjvgAB0106-88-53Y65:24:56[facility] NoteTXT1.2.840.136523.1.13.104.2. 7.2.356962|[id number] for patient pwhd80061-1QyriLXNMYCNTQG[address]TXTX[address] 569YOLDGIQGIKKPVCDJCLBSQS1434-26- 02T00:24:561.2.840.104300.1.72.3. 15|1.2.840.448971.1.13.104.2.7.2. 727879_[id number] [facility] 2023-01-11 23:08:11 2M2wbTfSUP3AlKUo6AP5 s0gPgCkqrk/r5 CJGOE0OYkx2ph1si4yHIBF7R0tyjyOp97 02-02-01T23:08:11 made aware of pt increased pain and nausea [address]322-5Hnvoyaqof[address] SdehRS3308-29-88P86:08:21[facility] department NoteTXT1.2.840.072165.1.13.104.2. 7.2.531615|[id number] for patient lfqf86220-8IgldPZERWXDXZF[address]TXTX[address] 229VOHLLJCECERHRRRTGHEYVI5822-31- 01T23:08:211.2.840.639286.1.72.3. 15|1.2.840.440537.1.13.104.2.7.2. 727879_[id number] [facility] 2023-01-11 22:34:38 BGmBamrty4TQ1wbZEkcl 7Lv+x8Sxekv8S 5JD8vn9g0lzNmSYXkvEGPLfTD4jJJQF24 02-02-01T22:34:[address], warm blanket given 94014-2Mclyckuvy[address] EvvzRL9028-17-38R53:34:49[facility] department NoteTXT1.2.840.741135.1.13.104.2. 7.2.450237|[id number] for patient rqhe35283-5VdcpZHRDXOYDWN[address]TXTX[address] 472OPGUGISUGHYTFXGUYRCPYG5690-84- 01T22:34:491.2.840.382283.1.72.3. 15|1.2.840.121574.1.13.104.2.7.2. 727879_[id number] [facility] 2023-01-11 22:18:01 FqyPhqAPJprszv5i2X1Y 20SgblaAZBJ9r H0wdorm+zjXaKd7DohPwzsgok4XLFO894 02-02-01T22:18:[address] scan 42946-1Gkcdstyfl department OamaCK9627-52-19K73:18:08[facility] NoteTXT1.2.840.329487.1.13.104.2. 7.2.361338|[id number] for patient ffbm04574-5MppiTABEGCNQFW[address]TXTX[address] 202NGBNYNXNWNQUVGKSOJXFYO0040-64- 01T22:18:081.2.840.381501.1.72.3. 15|1.2.840.592675.1.13.104.2.7.2. 727879_[id number] [facility] 2023-01-11 21:30:08 t3a8bxN8kQemPbjOr684 TP/us38LyAyEe v1U0TD2ILb+y/YKPURtAfyegOyvF12H34 02-02-01T21:30:08 Nikko Dyson is a 27 year [...] liver. Denies vomiting, denies blood in stool. 78199-8Jslzxatuj department PnybTF4608-58-98S24:32:39[facility] NoteTXT1.2.840.041388.1.13.104.2. 7.2.578806|[id number] for patient qqss12752-3JffwICKNIFQYHP67 [address] 823GEVJTSWXBLVUOLLKVLCJNN3466-04- 01T21:32:391.2.840.593765.1.72.3. 15|1.2.840.547347.1.13.104.2.7.2. 727879_[id number] [facility] 2023-01-11 21:03:38 4bU4CAT4A20Pkgb33lYA d5/7UvHf7fTEx +vp9rVYmGmdglM9KXI+X0V53Ora4kZD25 02-02-01T21:03:38 Nikko Dyson is a 27 year old female here today c/o abdominal pain x 2 days. Pt denies N/V but reports diarrhea. Pt reports "9/10" pain at this time. Pt reports pain travels down right side abdomen. Pt is A&Ox4, NAD Noted. RR even/unlabored. 79149-3Mvgasyatk department Triage hajjHM6868-52-25G29:05:23[facility] department Triage noteTXT1.2.840.200359.1.13.104.2. 7.2.371490|[id number] for patient yuta48988-1Tecvhqbtu[address]TX[address] 613BIAYQWQUQOCHQCYBYMQNWE8834-18- 01T21:05:231.2.840.164947.1.72.3. 15|1.2.840.892723.1.13.104.2.7.2. 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 Due to the worsening discomfort patient has, for further evaluation at [facility]. Patient states that during her [...] when she sits up. Patient has discontinued [place] and anxiety medication due to concern for her liver. 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 METABOLIC PANEL (16997) TOTAL BETA HCG ASSAY EXTRA TUBE ORANGE EXTRA TUBE LAV EKG:If EKG completed, see Procedure Note. Orders and Treatments:Orders Placed This Encounter Procedures CT ABDOMEN PELVIS W CONTRAST POCT TEST URINALYSIS LIPASE COMP. METABOLIC PANEL (11039) TOTAL BHCG (QUANTITATIVE) Orders Placed This Encounter Medications NaCl 0.9% (NS) bolus infusion 1,000 mL morpHINE (4 mg/mL) injection 4 mg maalox:diphenhydrAMINE:lidocaine 2 % viscous 1:1:1 (FIRST-MOUTHWASH BLM) oral suspension 15 mL ondansetron (ZOFRAN (PF)) injection 4 mg First Provider Eval:ED Events Date/Time Event User Comments 01/11/232104 Medical Screening Begins SCOTTIE GARCÍAMARIA LUZ Amaral -- 01/11/232104 First Provider Evaluation CIERA GARCÍA [...] mouth every 6 (six) hours as needed. BIXFAMJQVF-MBVMJJOCSPASI-YCZP (FIORICET) 50-300-40 MG PER CAPSULE Take 1 [...] in the Gallbladder fossa, post-recent cholecystectomy in [place].General surgery was consulted and admitted the patient for further workup and management. 59041-4Fmyebatgu Emergency department YpfxVH5227915Nniyqb, Jeremy1.2.840.415946.1.13.104.2.7 .2.714280SmfjieZcfvqgEL8179-96-87 T07:17:19[facility] [place] [facility] NoteTXT1.2.840.744639.1.13.104.2. 7.2.924603|[id number] for patient nyfr35030-7Mmeonqtxx department NoteLNUT[address] NpmgAnzmuyewzReszgscwbYKMT6716575 354TVYGMBJPIXUQFZHVVLUUGA5014-08- 02T07:17:191.2.840.034212.1.72.3. 15|1.2.840.658999.1.13.104.2.7.2. 727879_[id number] [facility] 2022-12-03 08:57:03 /lOh77///Z4fP8Mh5R LTmcsrMl1Mi+B oTbk2jh22Aybc+b/I01RepMgA9Ijxi229 03-12-23T08:57:03 Patient has an appointment 12/12/22.Blayne Silva RN 12/03/2022 8:57 AM 77365-1Lfhahclgp encounter EmusMT4654-32-68A94:57:18Telephon e encounter NoteTXT1.2.840.772627.1.13.104.2. 7.2.934819|[id number] for patient fjsj134612894Frjsvlc Collins RN[address] HddaEzfkqmvijNkptuehzkXBWE7530920 387VWOPJORIKGSYWWYWJDBFNT4987-52- 24T08:57:181.2.840.249709.1.72.3. 15|1.2.840.792255.1.13.104.2.7.2. [id number] Blayne Silva RN [facility]
[2023-07-09 08:33] LABS: Urine Bacteria None Seen /HPF (<20); Urine Bilirubin NEGATIVE (Negative); Urine Blood Negative (Negative); Urine Clarity Turbid (Clear); Urine Color Light-Yellow (Yellow); Urine Glucose NEGATIVE (Negative); Urine Protein NEGATIVE (Negative); Urine RBC <5 /HPF (None Seen); Urine Urobilinogen Normal (Normal)
[2023-07-09 09:10] LABS: Absolute Lymphocytes (CBC) 1.4 K/uL (0.7-4.9); Hematocrit 40.2 % (36.0-45.0); Lymphocytes % 16.8 % (15.3-44.8); MCV 85.6 fL (80-100); MPV 7.2 fL (7.6-11.3); Platelets 404 thou/uL (152-406)
--- NOTE | 2023-07-09 09:20 | RAD REPORT ---
EXAM DESCRIPTION: CT - Stone Protocol - 07/09/2023 9:07 am CLINICAL HISTORY: Abdominal pain. COMPARISON: None. TECHNIQUE: Computed axial tomography of the abdomen pelvis was obtained without oral or IV contrast. Lack of IV and oral contrast limits evaluation of solid organs, appendix, bowel, and vessels. Snowden l reformatted images were obtained and reviewed. All CT scans are performed using dose optimization technique as appropriate and may include automated exposure control or mA/KV adjustment according to patient size. FINDINGS: Small right renal calculi. No hydronephrosis. No left renal calculus. A ureteral calculus is not seen. A bladder calculus. Cholecystectomy The liver, spleen, pancreas and adrenals appear grossly normal There is no evidence of diverticulitis. The appendix appears normal A small umbilical hernia IMPRESSION: Small nonobstructing right renal calculi
[2023-07-09 09:28] LABS: Bilirubin Total 0.4 mg/dL (0.2-1.0); Potassium 3.5 mEq/L (3.5-5.1); Protein, Total 8.3 g/dL (6.4-8.2)
[2023-07-09 09:42] LABS: SARS-CoV-2 Antigen Rapid Res Negative (Negative)
--- NOTE | 2023-07-09 09:46 | EDPHYS ---
Physician Documentation [facility] Name: Natanael Dyson Age: 28 yrs Sex: Female : 1995 Arrival Date: 07/09/2023 Time: 08:02 Bed 2 Private MD: ED Physician Harjit Samson HPI: 07/09 08:15 This 28 yrs old Female presents to ER via Ambulatory with complaints of Low Back Pain. rn 08:15 The patient presents with pain that is acute, with no known mechanism of injury. The rn symptoms are located in the low back. The pain does not radiate. Onset: The symptoms/episode began/occurred 3 day(s) ago. Modifying factors: The patient symptoms are alleviated by nothing, the patient symptoms are aggravated by nothing. Associated signs and symptoms: Pertinent positives: dysuria, Pertinent negatives: fever, hematuria, incontinence, urinary retention. Severity of symptoms: At their worst the symptoms were moderate, in the emergency department the symptoms are unchanged. The patient has experienced similar episodes in the past. The patient has not recently seen a physician. 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 - Social history:: Smoking status: Patient denies any tobacco usage or history of. - Family history:: not pertinent. - Hospitalizations: : No recent hospitalization is reported. ROS: 08:15 Constitutional: Negative for fever, chills, and weight loss, Cardiovascular: Negative rn for chest pain, palpitations, and edema, Respiratory: Negative for shortness of breath, cough, wheezing, and pleuritic chest pain, Abdomen/GI: Positive for lower abdominal pain and nausea, + diarrhea Back: Positive for lower back pain : Positive for increased urinary frequency and dysuria Neuro: Negative for headache, weakness, numbness, tingling, and seizure, Exam: 08:15 Constitutional: This is a well developed, well nourished patient who is awake, alert, rn and in no acute distress. Ambulatory to triage in room without difficulty or assistance. Appears uncomfortable, slow ambulation Cardiovascular: Tachycardic, regular Respiratory: No increased work of breathing, no retractions or nasal flaring. Abdomen/GI: Soft, mild suprapubic tenderness. No distention Back: No CVA tenderness. No spinal tenderness Neuro: Awake and alert, GCS 15, antalgic gait Vital Signs: 08:10 BP 144 / 96; Pulse 115; Resp 18; Temp 98.5; Pulse Ox 100% on R/A; Weight 58.97 kg; iw Height 5 ft. 1 in. ; Pain 10/10; 09:49 BP 144 / 92; Pulse 80; Resp 17; Temp 98.4(O); Pulse Ox 99% ; rs5 08:10 Body Mass Index 24.56 (58.97 kg, 154.94 cm) iw 08:10 Pain Scale: Adult iw MDM: 08:04 Patient medically screened. rn 09:45 Differential diagnosis: sciatica, Herniated disc UTI, Viral infection, abdominal rn infection, colitis, enteritis, kidney stone. Data reviewed: vital signs, nurses notes, lab test result(s), radiologic studies, CT scan, and as a result, I will discharge patient. Counseling: I had a detailed discussion with the patient and/or guardian regarding the historical points, exam findings, and any diagnostic results supporting the discharge/admit diagnosis, lab results, radiology results, the need for outpatient follow up, to return to the emergency department if symptoms worsen or persist or if there are any questions or concerns that arise at home. Response to treatment: the patient's symptoms have mildly improved after treatment, and as a result, I will discharge patient. Special discussion: Based on the patient's Hx, exam, and Dx evaluation, there is no indication for emergent surgery or inpatient Tx. It is understood by the patient/guardian that if the Sx's persist or worsen they need to return immediately for re-evaluation. I discussed with the patient/guardian in detail that at this point there is no indication for admission to the hospital. It is understood, however, that if the symptoms persist or worsen the patient needs to return immediately for re-evaluation. ED course: No acute findings on CT abdomen pelvis. Urine clean. Vital signs have improved. Patient feels better. I have personally reviewed all of the results, including but not limited to blood tests and imaging deemed necessary to safely discharge this patient at this time. I personally went over all the results with the patient and answered all questions. Patient will follow-up with PCP and or specialist as discussed. Return precautions given and understood.. 07/09 08:11 Order name: Test, Urine; Complete Time: 09:33 rn 07/09 08:11 Order name: Urinalysis w/ reflexes; Complete Time: 09:33 rn 07/09 08:18 Order name: CBC with Diff; Complete Time: 09:33 rn 07/09 08:18 Order name: CMP; Complete Time: 09:33 rn 07/09 08:24 Order name: Flu; Complete Time: 09:58 rn 07/09 08:24 Order name: SARS RAPID; Complete Time: 09:48 rn 07/09 08:18 Order name: CT Stone Protocol; Complete Time: 09:33 rn 07/09 08:18 Order name: IV Saline Lock; Complete Time: 09:06 rn 07/09 08:18 Order name: Labs collected and sent; Complete Time: 09:06 rn Administered Medications: 09:05 Drug: Ondansetron IVP 4 mg IVP once; over 2 minutes Route: IVP; Site: right forearm; rs5 09:05 Drug: NS 0.9% IV 1000 ml IV at 1000 ml once Route: IV; Rate: 1000 ml; Site: right rs5 forearm; 09:48 Drug: morphine IVP or IV 4 mg IVP once over 4 mins Route: IVP; Infused Over: 4 mins; rs5 Site: right forearm; 10:13 Drug: Promethazine IVP 12.5 mg IVP once Route: IVP; Site: right forearm; ll1 10:25 Drug: diphenhydrAMINE IVP 25 mg IVP once Route: IVP; Site: right forearm; ll1 Disposition Summary: 07/09/23 09:46 Discharge Ordered Notes: Location: Home rn Problem: new rn Symptoms: have improved rn Condition: Stable rn Diagnosis - Low back pain rn - Vomiting, unspecified rn - Diarrhea, unspecified rn Followup: rn - With: Private Physician - When: As needed - Reason: Recheck today's complaints, Re-evaluation by your physician Discharge Instructions: - Discharge Summary Sheet rn - Acute Back Pain, Adult rn - Diarrhea, Adult rn - Nausea and Vomiting, Adult rn Forms: - Medication Reconciliation Form rn - Thank You Letter rn - Antibiotic sports internship - Prescription Opioid Use rn - Patient Portal Instructions rn - Leadership Thank You Letter rn Prescriptions: - ondansetron 4 mg Oral Tablet,disintegrating - take 1 tablet ORAL route every 8 hours As needed; 10 tablet; Refills: 0, rn Product Selection Permitted Signatures: Dispatcher [employer] Vania Parekh RN Harjit Farr MD MD rn Lewis, Lynsay, RN RN ll1 Brody Sevilla RN RN rs5 Corrections: (The following items were deleted from the chart) 08:24 08:15 Constitutional: Negative for fever, chills, and weight loss, Cardiovascular: rn Negative for chest pain, palpitations, and edema, Respiratory: Negative for shortness of breath, cough, wheezing, and pleuritic chest pain, Abdomen/GI: Positive for lower abdominal pain and nausea Back: Positive for lower back pain : Positive for increased urinary frequency and dysuria Neuro: Negative for headache, weakness, numbness, tingling, and seizure, rn
--- NOTE | 2023-07-09 09:46 | ER ---
Nurse's Notes [facility] Name: Natanael Dyson Age: 28 yrs Sex: Female : 1995 Arrival Date: 07/09/2023 Time: 08:02 Bed 2 Private MD: Diagnosis: Low back pain;Vomiting, unspecified;Diarrhea, unspecified Presentation: 07/09 08:10 Chief complaint: Patient states: my kidneys hurt, mainly my right side, started 4 days iw ago, has had urinary frequency. Coronavirus screen: At this time, the client does not indicate any symptoms associated with coronavirus-19. Ebola Screen: Patient negative for fever greater than or equal to 101.5 degrees Fahrenheit, and additional compatible Ebola Virus Disease symptoms Patient denies exposure to infectious person. 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 - Social history:: Smoking status: Patient denies any tobacco usage or history of. - Family history:: not pertinent. - Hospitalizations: : No recent hospitalization is reported. Screenin:15 [facility] ED Fall Risk Assessment (Adult) History of falling in the last 3 months, rs5 including since admission No falls in past 3 months (0 pts) Confusion or Disorientation No (0 pts) Intoxicated or Sedated No (0 pts) Impaired Gait No (0 pts) Mobility Assist Device Used No (0 pt) Altered Elimination No (0 pt) Score/Fall Risk Level 0 - 2 = Low Risk Oriented to surroundings, Maintained a safe environment. 08:15 Abuse screen: Denies threats or abuse. Nutritional screening: No deficits noted. rs5 Tuberculosis screening: No symptoms or risk factors identified. Assessment: 09:12 Reassessment: Patient and/or family updated on plan of care and expected duration. Pain ll1 level reassessed. Vital Signs: 08:10 BP 144 / 96; Pulse 115; Resp 18; Temp 98.5; Pulse Ox 100% on R/A; Weight 58.97 kg; iw Height 5 ft. 1 in. ; Pain 10/10; 09:49 BP 144 / 92; Pulse 80; Resp 17; Temp 98.4(O); Pulse Ox 99% ; rs5 08:10 Body Mass Index 24.56 (58.97 kg, 154.94 cm) iw 08:10 Pain Scale: Adult iw ED Course: 08:04 Patient arrived in ED. im 08:04 Harjit Samson MD is Attending Physician. rn 08:11 Triage completed. iw 08:11 Arm band placed on. iw 08:15 Patient has correct armband on for positive identification. Placed in gown. Bed in low rs5 position. Call light in reach. Side rails up X2. 08:15 No provider procedures requiring assistance completed. rs5 08:48 Brody Sevilla RN is Primary Nurse. rs5 08:55 Missed attempt(s): 22 gauge in left antecubital area. Bleeding controlled, band aid ll1 applied, catheter tip intact. 09:00 Inserted saline lock: 22 gauge in right forearm, using aseptic technique. Blood ll1 collected. 09:09 CT Stone Protocol In Process Unspecified. EDMS Administered Medications: 09:05 Drug: Ondansetron IVP 4 mg IVP once; over 2 minutes Route: IVP; Site: right forearm; rs5 09:05 Drug: NS 0.9% IV 1000 ml IV at 1000 ml once Route: IV; Rate: 1000 ml; Site: right rs5 forearm; 09:48 Drug: morphine IVP or IV 4 mg IVP once over 4 mins Route: IVP; Infused Over: 4 mins; rs5 Site: right forearm; 10:13 Drug: Promethazine IVP 12.5 mg IVP once Route: IVP; Site: right forearm; ll1 10:25 Drug: diphenhydrAMINE IVP 25 mg IVP once Route: IVP; Site: right forearm; ll1 Medication: 08:15 VIS not applicable for this client. rs5 Outcome: 09:46 Discharge ordered by . rn 10:50 Patient left the ED. rs5 Signatures: Dispatcher [employer] EDMS Vania Loo RN RN iw Nieto, Roman, MD MD rn Lewis, Lynsay, RN RN ll1 Brody Sevilla, RN RN rs5 Margie Nettles
[2023-07-09 10:58] VITALS: BP 144/92; TEMP 98.4; O2SAT 99
== END ==
LOC: ER 08:02
DX: M54.50 Low back pain, unspecified (principal); R11.10 Vomiting, unspecified; R19.7 Diarrhea, unspecified; R30.0 Dysuria; Z11.52 Encounter for screening for COVID-19; Z88.1 Allergy status to other antibiotic agents; Z88.5 Allergy status to narcotic agent; Z88.8 Allergy status to other drugs, medicaments and biological substances
CPT/HCPCS: 85025; 81001; 36415; 81025; 80053; 87804 ×2; 76377; 74176; 87811; J2550; J1200; J2405; J7030

== ENCOUNTER 2023-08-11 07:41 | Emergency (ER) | payer OTHER ==
--- NOTE | 2023-08-11 07:54 | EDPHYS ---
Physician Documentation [facility] Name: Natanael Dyson Age: 28 yrs Sex: Female : 1995 Arrival Date: 08/11/2023 Time: 07:41 Bed 12 Private MD: ED Physician Paula Mark HPI: 08/10 07:49 This 28 yrs old Female presents to ER via Ambulatory with complaints of Nausea, sp3 Dizziness, Toothache. 07:49 28-year-old female with history of breast cancer, depression, kidney stone with sp3 multiple visits to the ED with well-documented history now presents to the ED with chief complaint left upper maxillary tooth pain and "a bubble that popped". Patient states she has an appointment with her dentist next week but is here due to the pain and possible infection. She denies any other symptoms including headache, difficulty breathing or swallowing, maxillary pain, right-sided pain, throat pain, neck pain, chest pain, shortness of breath, abdominal pain or nausea, vomiting or diarrhea, syncope, near syncope, rash, fever, or any other signs or symptoms on ROS at this time.. Historical: - Allergies: 07:43 Compazine; ll1 07:43 Haldol; ll1 07:43 Reglan; ll1 07:43 Toradol; ll1 13:50 NSAIDS NON STEROIDAL ANTI INFLAMMATORY DRUG; ll1 - PMHx: 07:43 Anxiety; breast cancer; depressive disorder; Kidney stone; nephritis; ll1 - PSHx: 07:43 Cholecystectomy; Ligation of fallopian tube; ll1 - Immunization history:: Adult Immunizations up to date. - Social history:: Smoking status: Patient denies any tobacco usage or history of. ROS: 07:50 Constitutional: Negative for fever, chills, and weight loss, Eyes: Negative for injury, sp3 pain, redness, and discharge, Neck: Negative for injury, pain, and swelling, Cardiovascular: Negative for chest pain, palpitations, and edema, Respiratory: Negative for shortness of breath, cough, wheezing, and pleuritic chest pain, Abdomen/GI: Negative for abdominal pain, nausea, vomiting, diarrhea, and constipation, Back: Negative for injury and pain, MS/Extremity: Negative for injury and deformity, Skin: Negative for injury, rash, and discoloration, Neuro: Negative for headache, weakness, numbness, tingling, and seizure, 07:50 Psych: Negative for depression, anxiety, suicide ideation, homicidal ideation, and hallucinations, Allergy/Immunology: Negative for hives, rash, and allergies, Endocrine: Negative for neck swelling, polydipsia, polyuria, polyphagia, and marked weight changes, Exam: 07:52 Constitutional: This is a well developed, well nourished patient who is awake, alert, sp3 and in no acute distress. Head/Face: Normocephalic, atraumatic. Eyes: Pupils equal round and reactive to light, extra-ocular motions intact. Lids and lashes normal. Conjunctiva and sclera are non-icteric and not injected. Cornea within normal limits. Periorbital areas with no swelling, redness, or edema. Neck: Trachea midline, no thyromegaly or masses palpated, and no cervical lymphadenopathy. Supple, full range of motion without nuchal rigidity, or vertebral point tenderness. No Meningismus. Chest/axilla: Normal chest wall appearance and motion. Nontender with no deformity. No lesions are appreciated. Cardiovascular: Regular rate and rhythm with a normal S1 and S2. No gallops, murmurs, or rubs. Normal PMI, no JVD. No pulse deficits. Respiratory: Lungs have equal breath sounds bilaterally, clear to auscultation and percussion. No rales, rhonchi or wheezes noted. No increased work of breathing, no retractions or nasal flaring. Abdomen/GI: Soft, non-tender, with normal bowel sounds. No distension or tympany. No guarding or rebound. No evidence of tenderness throughout. MS/ Extremity: Pulses equal, no cyanosis. Neurovascular intact. Full, normal range of motion. Neuro: Awake and alert, GCS 15, oriented to person, place, time, and situation. Cranial nerves II-XII grossly intact. Motor strength 5/5 in all extremities. Sensory grossly intact. Cerebellar exam normal. Normal gait. Psych: Awake, alert, with orientation to person, place and time. Behavior, mood, and affect are within normal limits. 07:52 ENT: Left upper maxillary poor dentition with probable abscess/dental caries. Poor dentition all around. No airway compromise, uvular shift or pharyngeal/tonsillar edema or erythema.. Vital Signs: 07:48 BP 141 / 98; Pulse 80; Resp 18; Temp 98.6(O); Pulse Ox 100% ; Weight 68.04 kg; Height 5 ll1 ft. 1 in. ; Pain 10/10; 08:00 BP 141 / 98; Pulse 80; Resp 18; Pulse Ox 99% on R/A; db 07:48 Body Mass Index 28.34 (68.04 kg, 154.94 cm) ll1 07:48 Pain Scale: Adult ll1 MDM: 07:48 Patient medically screened. sp3 07:53 Data reviewed: vital signs, nurses notes, old medical records. ED course: 28-year-old sp3 female with probable dental abscess and caries. Will start on Augmentin and diclofenac and discharged home with follow-up to dentistry.. Administered Medications: No medications were administered Disposition Summary: 08/11/23 07:54 Discharge Ordered Notes: Location: Home sp3 Condition: Stable sp3 Diagnosis - Dental jake, dental abscess, tooth ache sp3 Followup: sp3 - With: Private Physician - When: Upon discharge from the Emergency Department - Reason: Continuance of care Discharge Instructions: - Discharge Summary Sheet sp3 - Dental Abscess sp3 Forms: - Medication Reconciliation Form sp3 - Thank You Letter sp3 - Antibiotic Education sp3 - Prescription Opioid Use sp3 - Patient Portal Instructions sp3 - Leadership Thank You Letter sp3 Prescriptions: - Augmentin 875-125 mg Oral Tablet - take 1 tablet ORAL route every 12 hours for 10 days; 20 tablet; Refills: 0, sp3 Product Selection Permitted - Diclofenac Sodium 75 mg Oral Tablet Sustained Release - take 1 tablet ORAL route 2 times per day; 30 tablet; Refills: 0, Product sp3 Selection Permitted Signatures: Brandi Cotter RN RN ll1 Paula Mark MD MD sp3
--- NOTE | 2023-08-11 07:54 | ER ---
Nurse's Notes [facility] Name: Natanael Dyson Age: 28 yrs Sex: Female : 1995 Arrival Date: 08/11/2023 Time: 07:41 Bed 12 Private MD: Diagnosis: Dental jake, dental abscess, tooth ache Presentation: 08/10 07:48 Chief complaint: Patient states: L upper jaw tooth pain for 4 days. N/V, fever, ll1 dizziness started yesterday. Coronavirus screen: Client denies travel out of the [place] in the last 14 days. At this time, the client does not indicate any symptoms associated with coronavirus-19. Ebola Screen: Patient denies travel to an Ebola-affected area in the 21 days before illness onset. Initial Sepsis Screen: Does the patient meet any 2 criteria? No. Patient's initial sepsis screen is negative. Does the patient have a suspected source of infection? No. Patient's initial sepsis screen is negative. Risk Assessment: Do you want to hurt yourself or someone else? Patient reports no desire to harm self or others. Onset of symptoms was August 08, 2023. 07:48 Method Of Arrival: Ambulatory ll1 07:48 Acuity: THIERNO 4 ll1 Triage Assessment: 08:00 General: Appears in no apparent distress. comfortable, Behavior is calm, cooperative. db GI: Reports nausea. Historical: - Allergies: 07:43 Compazine; ll1 07:43 Haldol; ll1 07:43 Reglan; ll1 07:43 Toradol; ll1 13:50 NSAIDS NON STEROIDAL ANTI INFLAMMATORY DRUG; ll1 - PMHx: 07:43 Anxiety; breast cancer; depressive disorder; Kidney stone; nephritis; ll1 - PSHx: 07:43 Cholecystectomy; Ligation of fallopian tube; ll1 - Immunization history:: Adult Immunizations up to date. - Social history:: Smoking status: Patient denies any tobacco usage or history of. Screenin:00 [facility] ED Fall Risk Assessment (Adult) History of falling in the last 3 months, db including since admission No falls in past 3 months (0 pts) Confusion or Disorientation No (0 pts) Intoxicated or Sedated No (0 pts) Impaired Gait No (0 pts) Mobility Assist Device Used No (0 pt) Altered Elimination No (0 pt) Score/Fall Risk Level 0 - 2 = Low Risk Oriented to surroundings, Maintained a safe environment. Abuse screen: Denies threats or abuse. Denies injuries from another. Nutritional screening: No deficits noted. Tuberculosis screening: No symptoms or risk factors identified. Assessment: 08:00 Reassessment: Patient appears in no apparent distress at this time. Patient and/or db family updated on plan of care and expected duration. Pain level reassessed. Patient is alert, oriented x 3, equal unlabored respirations, skin warm/dry/pink. General: Appears in no apparent distress. comfortable, Behavior is calm, cooperative. Pain: Complains of pain in mouth. Neuro: Level of Consciousness is awake, alert, obeys commands, Oriented to person, place, time, situation. Respiratory: Airway is patent Respiratory effort is even, unlabored, Respiratory pattern is regular, symmetrical. Vital Signs: 07:48 BP 141 / 98; Pulse 80; Resp 18; Temp 98.6(O); Pulse Ox 100% ; Weight 68.04 kg; Height 5 ll1 ft. 1 in. ; Pain 10/10; 08:00 BP 141 / 98; Pulse 80; Resp 18; Pulse Ox 99% on R/A; db 07:48 Body Mass Index 28.34 (68.04 kg, 154.94 cm) ll1 07:48 Pain Scale: Adult ll1 ED Course: 07:43 Patient arrived in ED. im 07:43 Arm band placed on Patient placed in an exam room, on a stretcher. ll1 07:47 Paula Mark MD is Attending Physician. sp3 07:49 Triage completed. ll1 07:55 Mercedes Aaron, ROSEY is Primary Nurse. db 08:00 Patient has correct armband on for positive identification. Bed in low position. Call db light in reach. Side rails up X 1. Provided Education on: DISCHARGE AND MEDICATIONS. Pulse ox on. NIBP on. 08:00 No provider procedures requiring assistance completed. Patient did not have IV access db during this emergency room visit. Administered Medications: No medications were administered Medication: 08:00 VIS not applicable for this client. db Outcome: 07:54 Discharge ordered by . sp3 08:00 Discharged to home ambulatory, db 08:00 Condition: stable 08:00 Discharge instructions given to patient, Instructed on discharge instructions, follow up and referral plans. Prescriptions given X 2, 08:05 Patient left the ED. db Signatures: Brandi Cotter RN RN ll1 Paula Mark MD MD sp3 Mercedes Aaron RN RN db Margie Nettles
--- OUTSIDE RECORDS SUMMARY | 2023-08-11 08:00 | XMS REPORT | Continuity of Care Document ---
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 tablet by mouth every 6 (six) hours as needed. [facility] hydrOXYzine 50 mg tablet 3-0 -23 00:00: 00 Yes 50mg Take 1 tablet by mouth every 6 (six) hours as needed. [facility] mirtazapine 15 mg tablet 3-0 5-12 00:00: 00 Yes 15mg Take 1 tablet by mouth at bedtime. [facility] mirtazapine 15 mg tablet 3-0 5-12 00:00: 00 Yes 15mg Take 1 tablet by mouth at bedtime. [facility] mirtazapine 15 mg tablet 3-0 5-12 00:00: 00 Yes 15mg Take 1 tablet by mouth at bedtime. [facility] mirtazapine 15 mg tablet 3-0 5-12 00:00: 00 Yes 15mg Take 1 tablet by mouth at bedtime. [facility] mirtazapine 15 mg tablet 3-0 5-12 00:00: 00 Yes 15mg Take 1 tablet by mouth at bedtime. [facility] mirtazapine 15 mg tablet 3-0 -12 00:00: 00 Yes 15mg Take 1 tablet by mouth at bedtime. [facility] mirtazapine 15 mg tablet 3-0 -12 00:00: 00 Yes 15mg Take 1 tablet by mouth at bedtime. [facility] mirtazapine 15 mg tablet 3-0 -12 00:00: 00 Yes 15mg Take 1 tablet by mouth at bedtime. [facility] mirtazapine 15 mg tablet 3-0 -12 00:00: 00 Yes 15mg Take 1 tablet by mouth at bedtime. [facility] meloxicam 15 mg tablet 3-0 -09 00:00: 00 Yes 15mg Take 1 tablet by mouth in the morning. [facility] meloxicam 15 mg tablet 3-0 -09 00:00: 00 Yes 15mg Take 1 tablet by mouth in the morning. [facility] meloxicam 15 mg tablet 3-0 - 00:00: 00 Yes 15mg Take 1 tablet by mouth in the morning. [facility] meloxicam 15 mg tablet 3-0 - 00:00: 00 Yes 15mg Take 1 tablet by mouth in the morning. [facility] meloxicam 15 mg tablet 3-0 -09 00:00: 00 Yes 15mg Take 1 tablet by mouth in the morning. [facility] meloxicam 15 mg tablet 2022-0 09-18 00:00: 00 Yes 15mg Take 1 tablet by mouth in the morning. [facility] meloxicam 15 mg tablet 0 09-18 00:00: 00 Yes 15mg Take 1 tablet by mouth in the morning. [facility] meloxicam 15 mg tablet 0 09-18 00:00: 00 Yes 15mg Take 1 tablet by mouth in the morning. [facility]-0 09-18 00:00: 00 Yes 15mg Take 1 tablet by mouth in the morning. [facility] mg tablet 2022-0 09-18 00:00: 00 Yes 15mg Take 1 tablet by mouth in the morning. [facility] verapamil SR 120 mg ER tablet 2022-0 09-17 00:00: 00 Yes 120mg Take 1 tablet by mouth in the morning. [facility] ER tablet 2022-0 09-17 00:00: 00 Yes 120mg Take 1 tablet by mouth in the morning. [facility] mg ER tablet 2022-0 09-17 00:00: 00 Yes 120mg Take 1 tablet by mouth in the morning. [facility] verapamil SR 120 mg ER tablet 2022-0 09-17 00:00: 00 Yes 120mg Take 1 tablet by mouth in the morning. [facility] mg ER tablet 2022-0 09-17 00:00: 00 Yes 120mg Take 1 tablet by mouth in the morning. [facility] 120 mg ER tablet 2022-0 09-17 00:00: 00 Yes 120mg Take 1 tablet by mouth in the morning. [facility] ver[facility] 120 mg ER tablet 2022-0 09-17 00:00: 00 Yes 120mg Take 1 tablet by mouth in the morning. [facility] ver[facility] 120 mg ER tablet 2022-0 08 00:00: 00 Yes 120mg Take 1 tablet by mouth in the morning. [facility] ver[facility] 120 mg ER tablet 2022-0 5-08 00:00: 00 Yes 120mg Take 1 tablet by mouth in the morning. [facility] verapamil SR 120 mg ER tablet 2022-0 5-08 00:00: 00 Yes 120mg Take 1 tablet by mouth in the morning. [facility] OLAN[facility] 10 mg tablet 3-0 27 00:00: 00 Yes 10mg Take 1 tablet by mouth in the morning. [facility] cloNIDine 0.1 mg tablet 3-0 27 00:00: 00 Yes TAKE 1-2 TABLETS BY MOUTH AT BEDTIME NEEDED FOR SLEEP AND ANXIETY [facility] mg tablet 3-0 27 00:00: 00 Yes 10mg Take 1 tablet by mouth in the morning. [facility] cloNIDine 0.1 mg tablet 3-0 27 00:00: 00 Yes TAKE 1-2 TABLETS BY MOUTH AT BEDTIME NEEDED FOR SLEEP AND ANXIETY [facility] OLANZapine 10 mg tablet 3-0 27 00:00: 00 Yes 10mg Take 1 tablet by mouth in the morning. [facility] cloNIDine 0.1 mg tablet 3-0 27 00:00: 00 Yes TAKE 1-2 TABLETS BY MOUTH AT BEDTIME NEEDED FOR SLEEP AND ANXIETY [facility] OLANZapine 10 mg tablet 3-0 27 00:00: 00 Yes 10mg Take 1 tablet by mouth in the morning. [facility] cloNIDine 0.1 mg tablet 3-0 27 00:00: 00 Yes TAKE 1-2 TABLETS BY MOUTH AT BEDTIME NEEDED FOR SLEEP AND ANXIETY [facility] OLANZapine 10 mg tablet 3-0 27 00:00: 00 Yes 10mg Take 1 tablet by mouth in the morning. [facility] cloNIDine 0.1 mg tablet 3-0 27 00:00: 00 Yes TAKE 1-2 TABLETS BY MOUTH AT BEDTIME NEEDED FOR SLEEP AND ANXIETY [facility] OLANZapine 10 mg tablet 3-0 27 00:00: 00 Yes 10mg Take 1 tablet by mouth in the morning. [facility] cloNIDine 0.1 mg tablet 09-06 00:00: 00 Yes TAKE 1-2 TABLETS BY MOUTH AT BEDTIME NEEDED FOR SLEEP AND ANXIETY [facility] OLANZapine 10 mg tablet 09-06 00:00: 00 Yes 10mg Take 1 tablet by mouth in the morning. [facility] cloNIDine 0.1 mg tablet 09-06 00:00: 00 Yes TAKE 1-2 TABLETS BY MOUTH AT BEDTIME NEEDED FOR SLEEP AND ANXIETY [facility] OLANZapine 10 mg tablet 09-06 00:00: 00 Yes 10mg Take 1 tablet by mouth in the morning. [facility] cloNIDine 0.1 mg tablet 09-06 00:00: 00 Yes TAKE 1-2 TABLETS BY MOUTH AT BEDTIME NEEDED FOR SLEEP AND ANXIETY [facility] OLANZapine 10 mg tablet 09-06 00:00: 00 Yes 10mg Take 1 tablet by mouth in the morning. [facility] cloNIDine 0.1 mg tablet 09-06 00:00: 00 Yes TAKE 1-2 TABLETS BY MOUTH AT BEDTIME NEEDED FOR SLEEP AND ANXIETY [facility] OLANZapine 10 mg tablet 09-06 00:00: 00 Yes 10mg Take 1 tablet by mouth in the morning. [facility] cloNIDine 0.1 mg tablet 09-06 00:00: 00 Yes TAKE 1-2 TABLETS BY MOUTH AT BEDTIME NEEDED FOR SLEEP AND ANXIETY [facility] NaCl 0.9% (NS) bolus infusion 1,000 mL 09-05 18:15: 00 09-05 18:08 :00 No 1000mL at 999 mL/hr, 1,000 mL, IV Infusion, ONCE, 1 dose, On Sat09/05/22 at 1315, STAT [facility] acetaminoph en (TYLENOL) tablet 650 mg 09-05 17:30: 00 09-05 17:24 :00 No 650mg 650 mg, Oral, ONCE, 1 dose, On Sat09/05/22 at 1230, [place] [facility] ondansetron (ZOFRAN (PF)) injection 4 mg 09-05 17:15: 00 09-05 17:23 :00 No 4mg 4 mg, Slow IV Push, ONCE, 1 dose, On Sat09/05/22 at 1215, [place] [facility] magnesium sulfate in water 2 gram/50 mL (4 %) infusion 2 g 09-05 16:15: 00 09-05 16:10 :00 No 2g 2 g, IV Piggyback, Administer over 30 Minutes, ONCE, 1 dose, On Sat09/05/22 at 1115, Routine [facility] diphenhydrA MINE (BENADRYL) injection 25 mg 09-05 16:00: 00 09-05 16:01 :00 No 25mg 25 mg, Slow IV Push, ONCE, 1 dose, On Sat09/05/22 at 1100, STAT [facility] ketorolac (TORADOL) injection 30 mg 09-05 15:30: 00 09-05 14:38 :00 No 30mg 30 mg, Slow IV Push, ONCE, 1 dose, On Sat09/05/22 at 1030, Routine [facility] NaCl 0.9% (NS) bolus infusion 1,000 mL 09-05 15:00: 00 09-05 17:12 :00 No 1000mL at 999 mL/hr, 1,000 mL, IV Infusion, ONCE, 1 dose, On Sat09/05/22 at 1000, STAT [facility] methylpredn isolone sod succ (SOLU-MEDRO L) injection 125 mg 09-05 14:45: 00 09-05 14:35 :00 No 125mg 125 mg, Intravenou s, ONCE, 1 dose, On Sat09/05/22 at 0945, 2 mL [facility] butalbital- acetaminoph en-caff (ESGIC) 50-325-40 mg tablet 1 tablet 09-05 14:00: 00 09-05 14:34 :00 No 1{tbl} 1 tablet, Oral, ONCE, 1 dose, On Sat09/05/22 at 0900, [place] [facility] diphenhydrA MINE (BENADRYL) injection 25 mg 09-05 14:00: 00 09-05 14:39 :00 No 25mg 25 mg, Slow IV Push, ONCE, 1 dose, On Sat09/05/22 at 0900, STAT [facility] proMETHazin e (PHENERGAN) 12.5 mg in NaCl 0.9% (NS) 50 mL IV piggyback 09-05 14:00: 00 09-05 14:40 :00 No 12.5mg 12.5 mg, IV Piggyback, ONCE, 1 dose, On Sat09/05/22 at 0900, [place] [facility] carvediloL 25 mg tablet 09-05 00:00: 00 Yes [id number] 25mg Take 1 tablet by mouth in the morning and 1 tablet in the evening. Take with meals. [facility] losartan 50 mg tablet 09-05 00:00: 00 Yes [id number] 50mg Take 1 tablet by mouth in the morning and 1 tablet in the evening. [facility] carvediloL 25 mg tablet 09-05 00:00: 00 Yes [id number] 25mg Take 1 tablet by mouth in the morning and 1 tablet in the evening. Take with meals. [facility] losartan 50 mg tablet 09-05 00:00: 00 Yes [id number] 50mg Take 1 tablet by mouth in the morning and 1 tablet in the evening. [facility] carvediloL 25 mg tablet 09-05 00:00: 00 Yes [id number] 25mg Take 1 tablet by mouth in the morning and 1 tablet in the evening. Take with meals. [facility] losartan 50 mg tablet 09-05 00:00: 00 Yes [id number] 50mg Take 1 tablet by mouth in the morning and 1 tablet in the evening. [facility] carvediloL 25 mg tablet 09-05 00:00: 00 Yes [id number] 25mg Take 1 tablet by mouth in the morning and 1 tablet in the evening. Take with meals. [facility] losartan 50 mg tablet 3-0 26 00:00: 00 Yes [id number] 50mg Take 1 tablet by mouth in the morning and 1 tablet in the evening. [facility] carvediloL 25 mg tablet 3-0 26 00:00: 00 Yes [id number] 25mg Take 1 tablet by mouth in the morning and 1 tablet in the evening. Take with meals. [facility] losartan 50 mg tablet 3-0 26 00:00: 00 Yes [id number] 50mg Take 1 tablet by mouth in the morning and 1 tablet in the evening. [facility] carvediloL 25 mg tablet 3-0 26 00:00: 00 Yes [id number] 25mg Take 1 tablet by mouth in the morning and 1 tablet in the evening. Take with meals. [facility] losartan 50 mg tablet 3-0 26 00:00: 00 Yes [id number] 50mg Take 1 tablet by mouth in the morning and 1 tablet in the evening. [facility] carvediloL 25 mg tablet 3-0 09-05 00:00: 00 Yes [id number] 25mg Take 1 tablet by mouth in the morning and 1 tablet in the evening. Take with meals. [facility] losartan 50 mg tablet 3-0 26 00:00: 00 Yes [id number] 50mg Take 1 tablet by mouth in the morning and 1 tablet in the evening. [facility] carvediloL 25 mg tablet 3-0 26 00:00: 00 Yes [id number] 25mg Take 1 tablet by mouth in the morning and 1 tablet in the evening. Take with meals. [facility] losartan 50 mg tablet 3-0 26 00:00: 00 Yes [id number] 50mg Take 1 tablet by mouth in the morning and 1 tablet in the evening. [facility] carvediloL 25 mg tablet 3-0 -26 00:00: 00 Yes [id number] 25mg Take 1 tablet by mouth in the morning and 1 tablet in the evening. Take with meals. [facility] losartan 50 mg tablet 3-0 26 00:00: 00 Yes [id number] 50mg Take 1 tablet by mouth in the morning and 1 tablet in the evening. [facility] carvediloL 25 mg tablet 3-0 09-05 00:00: 00 Yes [id number] 25mg Take 1 tablet by mouth in the morning and 1 tablet in the evening. Take with meals. [facility] losartan 50 mg tablet 3-0 09-05 00:00: 00 Yes [id number] 50mg Take 1 tablet by mouth in the morning and 1 tablet in the evening. [facility] carvediloL 25 mg tablet 3-0 09-05 00:00: 00 Yes [id number] 25mg Take 1 tablet by mouth in the morning and 1 tablet in the evening. Take with meals. [facility] losartan 50 mg tablet 3-0 09-05 00:00: 00 Yes [id number] 50mg Take 1 tablet by mouth in the morning and 1 tablet in the evening. [facility] carvediloL 25 mg tablet 3-0 09-05 00:00: 00 Yes [id number] 25mg Take 1 tablet by mouth in the morning and 1 tablet in the evening. Take with meals. [facility] losartan 50 mg tablet 3-0 26 00:00: 00 Yes [id number] 50mg Take 1 tablet by mouth in the morning and 1 tablet in the evening. [facility] carvediloL 25 mg tablet 3-0 09-05 00:00: 00 Yes [id number] 25mg Take 1 tablet by mouth in the morning and 1 tablet in the evening. Take with meals. [facility] losartan 50 mg tablet 3-0 26 00:00: 00 Yes [id number] 50mg Take 1 tablet by mouth in the morning and 1 tablet in the evening. [facility] carvediloL 25 mg tablet 3-0 26 00:00: 00 Yes [id number] 25mg Take 1 tablet by mouth in the morning and 1 tablet in the evening. Take with meals. [facility] losartan 50 mg tablet 3-0 26 00:00: 00 Yes [id number] 50mg Take 1 tablet by mouth in the morning and 1 tablet in the evening. [facility] carvediloL 25 mg tablet 2022-0 09-05 00:00: 00 Yes [id number] 25mg Take 1 tablet by mouth in the morning and 1 tablet in the evening. Take with meals. [facility] losartan 50 mg tablet 2022-0 09-05 00:00: 00 Yes [id number] 50mg Take 1 tablet by mouth in the morning and 1 tablet in the evening. [facility] ibuprofen 800 mg tablet 2022-0 08-05 00:00: 00 Yes 800mg Take 1 tablet by mouth 3 (three) times daily as needed. [facility] cyclobenzap rine 10 mg tablet 2022-0 08-05 00:00: 00 Yes 10mg Take 1 tablet by mouth 3 (three) times daily as needed. [facility] ibuprofen 800 mg tablet 2022-0 08-05 00:00: 00 Yes 800mg Take 1 tablet by mouth 3 (three) times daily as needed. [facility] cyclobenzap rine 10 mg tablet 2022-0 08-05 00:00: 00 Yes 10mg Take 1 tablet by mouth 3 (three) times daily as needed. [facility] ibuprofen 800 mg tablet 2022-0 08-05 00:00: 00 Yes 800mg Take 1 tablet by mouth 3 (three) times daily as needed. [facility] cyclobenzap rine 10 mg tablet 2022-0 08-05 00:00: 00 Yes 10mg Take 1 tablet by mouth 3 (three) times daily as needed. [facility] ibuprofen 800 mg tablet 2022-0 26 00:00: 00 Yes 800mg Take 1 tablet by mouth 3 (three) times daily as needed. [facility] cyclobenzap rine 10 mg tablet 3-0 26 00:00: 00 Yes 10mg Take 1 tablet by mouth 3 (three) times daily as needed. [facility] ibuprofen 800 mg tablet 3-0 26 00:00: 00 Yes 800mg Take 1 tablet by mouth 3 (three) times daily as needed. [facility] cyclobenzap rine 10 mg tablet 3-0 26 00:00: 00 Yes 10mg Take 1 tablet by mouth 3 (three) times daily as needed. [facility] ibuprofen 800 mg tablet 3-0 326 00:00: 00 Yes 800mg Take 1 tablet by mouth 3 (three) times daily as needed. [facility] cyclobenzap rine 10 mg tablet 3-0 326 00:00: 00 Yes 10mg Take 1 tablet by mouth 3 (three) times daily as needed. [facility] ibuprofen 800 mg tablet 3-0 326 00:00: 00 Yes 800mg Take 1 tablet by mouth 3 (three) times daily as needed. [facility] cyclobenzap rine 10 mg tablet 3-0 26 00:00: 00 Yes 10mg Take 1 tablet by mouth 3 (three) times daily as needed. [facility] ibuprofen 800 mg tablet 3-0 26 00:00: 00 Yes 800mg Take 1 tablet by mouth 3 (three) times daily as needed. [facility] cyclobenzap rine 10 mg tablet 3-0 26 00:00: 00 Yes 10mg Take 1 tablet by mouth 3 (three) times daily as needed. [facility] ibuprofen 800 mg tablet 3-0 26 00:00: 00 Yes 800mg Take 1 tablet by mouth 3 (three) times daily as needed. [facility] cyclobenzap rine 10 mg tablet 3-0 26 00:00: 00 Yes 10mg Take 1 tablet by mouth 3 (three) times daily as needed. [facility] ibuprofen 800 mg tablet 3-0 326 00:00: 00 Yes 800mg Take 1 tablet by mouth 3 (three) times daily as needed. [facility] cyclobenzap rine 10 mg tablet 3-0 326 00:00: 00 Yes 10mg Take 1 tablet by mouth 3 (three) times daily as needed. [facility] ibuprofen 800 mg tablet 3-0 3-26 00:00: 00 Yes 800mg Take 1 tablet by mouth 3 (three) times daily as needed. [facility] cyclobenzap rine 10 mg tablet 2023-0 326 00:00: 00 Yes 10mg Take 1 tablet by mouth 3 (three) times daily as needed. [facility] ibuprofen 800 mg tablet 3-0 26 00:00: 00 Yes 800mg Take 1 tablet by mouth 3 (three) times daily as needed. [facility] cyclobenzap rine 10 mg tablet 3-0 26 00:00: 00 Yes 10mg Take 1 tablet by mouth 3 (three) times daily as needed. [facility] ibuprofen 800 mg tablet 3-0 26 00:00: 00 Yes 800mg Take 1 tablet by mouth 3 (three) times daily as needed. [facility] cyclobenzap rine 10 mg tablet 3-0 26 00:00: 00 Yes 10mg Take 1 tablet by mouth 3 (three) times daily as needed. [facility] ibuprofen 800 mg tablet 3-0 26 00:00: 00 Yes 800mg Take 1 tablet by mouth 3 (three) times daily as needed. [facility] cyclobenzap rine 10 mg tablet 3-0 26 00:00: 00 Yes 10mg Take 1 tablet by mouth 3 (three) times daily as needed. [facility] ibuprofen 800 mg tablet 3-0 26 00:00: 00 Yes 800mg Take 1 tablet by mouth 3 (three) times daily as needed. [facility] cyclobenzap rine 10 mg tablet 3-0 26 00:00: 00 Yes 10mg Take 1 tablet by mouth 3 (three) times daily as needed. [facility] ibuprofen 800 mg tablet 3-0 26 00:00: 00 Yes 800mg Take 1 tablet by mouth 3 (three) times daily as needed. [facility] cyclobenzap rine 10 mg tablet 3-0 26 00:00: 00 Yes 10mg Take 1 tablet by mouth 3 (three) times daily as needed. [facility] ibuprofen 800 mg tablet 3-0 326 00:00: 00 Yes 800mg Take 1 tablet by mouth 3 (three) times daily as needed. [facility] cyclobenzap rine 10 mg tablet 3-0 3-26 00:00: 00 Yes 10mg Take 1 tablet by mouth 3 (three) times daily as needed. [facility] ibuprofen 800 mg tablet 08-05 00:00: 00 Yes 800mg Take 1 tablet by mouth 3 (three) times daily as needed. [facility] cyclobenzap rine 10 mg tablet 08-05 00:00: 00 Yes 10mg Take 1 tablet by mouth 3 (three) times daily as needed. [facility] maalox:diph enhydrAMINE :lidocaine 2 % viscous 1:1:1 ([facility]) oral suspension 15 mL 08-01 00:45: 00 08-01 00:44 :00 No 15mL 15 mL, Oral, ONCE, 1 dose, On Sat07/31/22 at 1945, [place] [facility] ketorolac (TORADOL) injection 15 mg 08-01 00:15: 00 08-01 00:44 :00 No 15mg 15 mg, Slow IV Push, ONCE, 1 dose, On Sat07/31/22 at 1915, Routine [facility] ondansetron (ZOFRAN (PF)) injection 4 mg 08-01 00:15: 00 08-01 00:46 :00 No 4mg 4 mg, Slow IV Push, ONCE, 1 dose, On Sat07/31/22 at 1915, [place] [facility] famotidine (PEPCID (PF)) injection 20 mg 08-01 00:15: 00 08-01 00:46 :00 No 20mg 20 mg, Slow IV Push, ONCE, 1 dose, On Sat07/31/22 at 191, [facility] ondansetron 4 mg disintegrat ing tablet 07-31 00:00: 00 Yes [id number] 4mg Take 1 tablet by mouth every 8 (eight) hours as needed for Nausea and Vomiting (N/V). [facility] sucralfate 1 gram tablet 07-31 00:00: 00 Yes [id number] 1g Take 1 tablet by mouth before meals and at bedtime. [facility] ondansetron 4 mg disintegrat ing tablet 3-0 3-21 00:00: 00 Yes [id number] 4mg Take 1 tablet by mouth every 8 (eight) hours as needed for Nausea and Vomiting (N/V). [facility] sucralfate 1 gram tablet 3-0 3-21 00:00: 00 Yes [id number] 1g Take 1 tablet by mouth before meals and at bedtime. [facility] ondansetron 4 mg disintegrat ing tablet 3-0 3-21 00:00: 00 Yes [id number] 4mg Take 1 tablet by mouth every 8 (eight) hours as needed for Nausea and Vomiting (N/V). [facility] sucralfate 1 gram tablet 3-0 -21 00:00: 00 Yes [id number] 1g Take 1 tablet by mouth before meals and at bedtime. [facility] ondansetron 4 mg disintegrat ing tablet 2022-0 3-21 00:00: 00 Yes [id number] 4mg Take 1 tablet by mouth every 8 (eight) hours as needed for Nausea and Vomiting (N/V). [facility] sucralfate 1 gram tablet 2022-0 -21 00:00: 00 Yes [id number] 1g Take 1 tablet by mouth before meals and at bedtime. [facility] ondansetron 4 mg disintegrat ing tablet 3-0 3-21 00:00: 00 Yes [id number] 4mg Take 1 tablet by mouth every 8 (eight) hours as needed for Nausea and Vomiting (N/V). [facility] sucralfate 1 gram tablet 3-0 3-21 00:00: 00 Yes [id number] 1g Take 1 tablet by mouth before meals and at bedtime. [facility] ondansetron 4 mg disintegrat ing tablet 3-0 3-21 00:00: 00 Yes [id number] 4mg Take 1 tablet by mouth every 8 (eight) hours as needed for Nausea and Vomiting (N/V). [facility] sucralfate 1 gram tablet 3-0 3-21 00:00: 00 Yes [id number] 1g Take 1 tablet by mouth before meals and at bedtime. [facility] ondansetron 4 mg disintegrat ing tablet 3-0 3-21 00:00: 00 Yes [id number] 4mg Take 1 tablet by mouth every 8 (eight) hours as needed for Nausea and Vomiting (N/V). [facility] sucralfate 1 gram tablet 2022-0 3-21 00:00: 00 Yes [id number] 1g Take 1 tablet by mouth before meals and at bedtime. [facility] ondansetron 4 mg disintegrat ing tablet 3-0 -21 00:00: 00 Yes [id number] 4mg Take 1 tablet by mouth every 8 (eight) hours as needed for Nausea and Vomiting (N/V). [facility] sucralfate 1 gram tablet 2022-0 -21 00:00: 00 Yes [id number] 1g Take 1 tablet by mouth before meals and at bedtime. [facility] ondansetron 4 mg disintegrat ing tablet 2022-0 - 00:00: 00 Yes [id number] 4mg Take 1 tablet by mouth every 8 (eight) hours as needed for Nausea and Vomiting (N/V). [facility] sucralfate 1 gram tablet 2022-0 -21 00:00: 00 Yes [id number] 1g Take 1 tablet by mouth before meals and at bedtime. [facility] ondansetron 4 mg disintegrat ing tablet 3-0 3-21 00:00: 00 Yes [id number] 4mg Take 1 tablet by mouth every 8 (eight) hours as needed for Nausea and Vomiting (N/V). [facility] sucralfate 1 gram tablet 3-0 3-21 00:00: 00 Yes [id number] 1g Take 1 tablet by mouth before meals and at bedtime. [facility] ondansetron 4 mg disintegrat ing tablet 3-0 3-21 00:00: 00 Yes [id number] 4mg Take 1 tablet by mouth every 8 (eight) hours as needed for Nausea and Vomiting (N/V). [facility] sucralfate 1 gram tablet 3-0 3-21 00:00: 00 Yes [id number] 1g Take 1 tablet by mouth before meals and at bedtime. [facility] ondansetron 4 mg disintegrat ing tablet 2022-0 3-21 00:00: 00 Yes [id number] 4mg Take 1 tablet by mouth every 8 (eight) hours as needed for Nausea and Vomiting (N/V). [facility] sucralfate 1 gram tablet 2022-0 -21 00:00: 00 Yes [id number] 1g Take 1 tablet by mouth before meals and at bedtime. [facility] ondansetron 4 mg disintegrat ing tablet 2022-0 - 00:00: 00 Yes [id number] 4mg Take 1 tablet by mouth every 8 (eight) hours as needed for Nausea and Vomiting (N/V). [facility] sucralfate 1 gram tablet 2022-0 07-31 00:00: 00 Yes [id number] 1g Take 1 tablet by mouth before meals and at bedtime. [facility] ondansetron 4 mg disintegrat ing tablet 2022-0 - 00:00: 00 Yes [id number] 4mg Take 1 tablet by mouth every 8 (eight) hours as needed for Nausea and Vomiting (N/V). [facility] sucralfate 1 gram tablet 2022-0 21 00:00: 00 Yes [id number] 1g Take 1 tablet by mouth before meals and at bedtime. [facility] ondansetron 4 mg disintegrat ing tablet 2022-0 3-21 00:00: 00 Yes [id number] 4mg Take 1 tablet by mouth every 8 (eight) hours as needed for Nausea and Vomiting (N/V). [facility] sucralfate 1 gram tablet 3-0 3-21 00:00: 00 Yes [id number] 1g Take 1 tablet by mouth before meals and at bedtime. [facility] ondansetron 4 mg disintegrat ing tablet 3-0 3-21 00:00: 00 Yes [id number] 4mg Take 1 tablet by mouth every 8 (eight) hours as needed for Nausea and Vomiting (N/V). [facility] sucralfate 1 gram tablet 3-0 3-21 00:00: 00 Yes [id number] 1g Take 1 tablet by mouth before meals and at bedtime. [facility] ondansetron 4 mg disintegrat ing tablet 2022-0 07-31 00:00: 00 Yes [id number] 4mg Take 1 tablet by mouth every 8 (eight) hours as needed for Nausea and Vomiting (N/V). [facility] sucralfate 1 gram tablet 2022-0 07-31 00:00: 00 Yes [id number] 1g Take 1 tablet by mouth before meals and at bedtime. [facility] ondansetron 4 mg disintegrat ing tablet 2022-0 07-31 00:00: 00 Yes [id number] 4mg Take 1 tablet by mouth every 8 (eight) hours as needed for Nausea and Vomiting (N/V). [facility] sucralfate 1 gram tablet 2022-0 07-31 00:00: 00 Yes [id number] 1g Take 1 tablet by mouth before meals and at bedtime. [facility] ondansetron 4 mg disintegrat ing tablet 2022-0 07-31 00:00: 00 Yes [id number] 4mg Take 1 tablet by mouth every 8 (eight) hours as needed for Nausea and Vomiting (N/V). [facility] sucralfate 1 gram tablet 2022-0 07-31 00:00: 00 Yes [id number] 1g Take 1 tablet by mouth before meals and at bedtime. [facility] ondansetron 4 mg disintegrat ing tablet 2022-0 07-31 00:00: 00 05-19 00:00 :00 No [id number] 4mg Take 1 tablet by mouth every 8 (eight) hours as needed for Nausea and Vomiting (N/V). [facility] sucralfate 1 gram tablet 2022-0 07-31 00:00: 00 05-19 00:00 :00 No [id number] 1g Take 1 tablet by mouth before meals and at bedtime. [facility] pantoprazol e 40 mg EC tablet 3-0 3-21 00:00: 00 08-15 04:59 :00 No [id number] 40mg Take 1 tablet by mouth in the morning for 14 days. [facility] pantoprazol e 40 mg EC tablet 3-0 3-21 00:00: 00 05 04:59 :00 No [id number] 40mg Take 1 tablet by mouth in the morning for 14 days. [facility] tamsulosin 0.4 mg 24 hr capsule 3-0 3-15 00:00: 00 Yes .4mg Take 1 capsule by mouth in the morning. [facility] tamsulosin 0.4 mg 24 hr capsule 3-0 3-15 00:00: 00 Yes .4mg Take 1 capsule by mouth in the morning. [facility] tamsulosin 0.4 mg 24 hr capsule 2023-0 3-15 00:00: 00 Yes .4mg Take 1 capsule by mouth in the morning. [facility] tamsulosin 0.4 mg 24 hr capsule 3-0 3-15 00:00: 00 Yes .4mg Take 1 capsule by mouth in the morning. [facility] tamsulosin 0.4 mg 24 hr capsule 3-0 3-15 00:00: 00 Yes .4mg Take 1 capsule by mouth in the morning. [facility] tamsulosin 0.4 mg 24 hr capsule 2023-0 3-15 00:00: 00 Yes .4mg Take 1 capsule by mouth in the morning. [facility] tamsulosin 0.4 mg 24 hr capsule 2023-0 3-15 00:00: 00 Yes .4mg Take 1 capsule by mouth in the morning. [facility] tamsulosin 0.4 mg 24 hr capsule 2023-0 3-15 00:00: 00 Yes .4mg Take 1 capsule by mouth in the morning. [facility] tamsulosin 0.4 mg 24 hr capsule 2023-0 3-15 00:00: 00 Yes .4mg Take 1 capsule by mouth in the morning. [facility] tamsulosin 0.4 mg 24 hr capsule 2023-0 3-15 00:00: 00 Yes .4mg Take 1 capsule by mouth in the morning. [facility]4 [facility] 24 hr capsule 2023-0 3-15 00:00: 00 Yes .4mg Take 1 capsule by mouth in the morning. [facility] t[facility]osin 0.4 mg 24 hr capsule 2023-0 3-15 00:00: 00 Yes .4mg Take 1 capsule by mouth in the morning. [facility] tamsulosin 0.4 mg 24 hr capsule 2023-0 3-15 00:00: 00 Yes .4mg Take 1 capsule by mouth in the morning. [facility] tams[facility]osin 0.4 mg 24 hr capsule 2023-0 3-15 00:00: 00 Yes .4mg Take 1 capsule by mouth in the morning. [facility] tamsulosin 0.4 mg 24 hr capsule 2023-0 3-15 00:00: 00 Yes .4mg Take 1 capsule by mouth in the morning. [facility] tamsulosin 0.4 mg 24 hr capsule 2023-0 3-15 00:00: 00 Yes .4mg Take 1 capsule by mouth in the morning. [facility] tamsulosin 0.4 mg 24 hr capsule 2023-0 3-15 00:00: 00 Yes .4mg Take 1 capsule by mouth in the morning. [facility] tamsulosin 0.4 mg 24 hr capsule 2023-0 3-15 00:00: 00 Yes .4mg Take 1 capsule by mouth in the morning. [facility] traMADoL 50 mg tablet 3-0 3-13 00:00: 00 Yes 50mg Take 1 tablet by mouth. [facility] traMADoL 50 mg tablet 3-0 3-13 00:00: 00 Yes 50mg Take 1 tablet by mouth. [facility] traMADoL 50 mg tablet 3-0 3-13 00:00: 00 Yes 50mg Take 1 tablet by mouth. [facility] traMADoL 50 mg tablet 3-0 3-13 00:00: 00 Yes 50mg Take 1 tablet by mouth. [facility] traMADoL 50 mg tablet 0 13 00:00: 00 Yes 50mg Take 1 tablet by mouth. [facility] mg tablet 0 13 00:00: 00 Yes 50mg Take 1 tablet by mouth. [facility] tra[facility]AD[facility] mg tablet 0 07-23 00:00: 00 Yes 50mg Take 1 tablet by mouth. [facility] tra[facility]AD[facility] mg tablet 0 13 00:00: 00 Yes 50mg Take 1 tablet by mouth. [facility] traMADoL 50 mg tablet 0 07-23 00:00: 00 Yes 50mg Take 1 tablet by mouth. [facility] traMADoL 50 mg tablet 0 07-23 00:00: 00 Yes 50mg Take 1 tablet by mouth. [facility] traMADoL 50 mg tablet 0 07-23 00:00: 00 Yes 50mg Take 1 tablet by mouth. [facility] traMADoL 50 mg tablet 0 07-23 00:00: 00 Yes 50mg Take 1 tablet by mouth. [facility] traMADoL 50 mg tablet 0 07-23 00:00: 00 Yes 50mg Take 1 tablet by mouth. [facility] traMADoL 50 mg tablet 0 07-23 00:00: 00 Yes 50mg Take 1 tablet by mouth. [facility] traMADoL 50 mg tablet 0 07-23 00:00: 00 Yes 50mg Take 1 tablet by mouth. [facility] traMADoL 50 mg tablet 0 13 00:00: 00 Yes 50mg Take 1 tablet by mouth. [facility] traMADoL 50 mg tablet 0 13 00:00: 00 Yes 50mg Take 1 tablet by mouth. [facility] traMADoL 50 mg tablet 0 13 00:00: 00 Yes 50mg Take 1 tablet by mouth. [facility] ibuprofen 600 mg tablet 2022-0 305 00:00: 00 Yes [id number] 600mg Take 1 tablet by mouth every 6 (six) hours as needed for Pain (scale 4-6). [facility] ibuprofen 600 mg tablet 3-0 3-05 00:00: 00 Yes [id number] 600mg Take 1 tablet by mouth every 6 (six) hours as needed for Pain (scale 4-6). [facility] ibuprofen 600 mg tablet 3-0 3-05 00:00: 00 Yes [id number] 600mg Take 1 tablet by mouth every 6 (six) hours as needed for Pain (scale 4-6). [facility] ibuprofen 600 mg tablet 3-0 3-05 00:00: 00 07-31 00:00 :00 No [id number] 600mg Take 1 tablet by mouth every 6 (six) hours as needed for Pain (scale 4-6). [facility] citalopram 10 mg tablet 3-0 2-17 00:00: 00 Yes 10mg Take 1 tablet by mouth in the morning. [facility] QUEtiapine 400 mg tablet 3-0 2-17 00:00: 00 Yes [facility] gabapentin 600 mg tablet 3-0 2-17 00:00: 00 Yes [facility] citalopram 10 mg tablet 3-0 2-17 00:00: 00 Yes 10mg Take 1 tablet by mouth in the morning. [facility] QUEtiapine 400 mg tablet 3-0 2-17 00:00: 00 Yes [facility] gabapentin 600 mg tablet 3-0 2-17 00:00: 00 Yes [facility] citalopram 10 mg tablet 3-0 2-17 00:00: 00 Yes 10mg Take 1 tablet by mouth in the morning. [facility] QUEtiapine 400 mg tablet 3-0 2-17 00:00: 00 Yes [facility] gabapentin 600 mg tablet 3-0 2-17 00:00: 00 Yes [facility] citalopram 10 mg tablet 3-0 2-17 00:00: 00 Yes 10mg Take 1 tablet by mouth in the morning. [facility] QUEtiapine 400 mg tablet 2023-0 2-17 00:00: [address] [facility] gabapentin 600 mg tablet 3-0 2-17 00:00: 00 Yes [facility] citalopram 10 mg tablet 3-0 2-17 00:00: 00 Yes 10mg Take 1 tablet by mouth in the morning. [facility] QUEtiapine 400 mg tablet 3-0 2-17 00:00: [address] [facility] gabapentin 600 mg tablet 3-0 2-17 00:00: [address] [facility] citalopram 10 mg tablet 3-0 2-17 00:00: 00 Yes 10mg Take 1 tablet by mouth in the morning. [facility] QUEtiapine 400 mg tablet 3-0 2-17 00:00: [address] [facility] gabapentin 600 mg tablet 3-0 2-17 00:00: [address] [facility] citalopram 10 mg tablet 3-0 2-17 00:00: 00 Yes 10mg Take 1 tablet by mouth in the morning. [facility] QUEtiapine 400 mg tablet 3-0 2-17 00:00: [address] [facility] gabapentin 600 mg tablet 3-0 2-17 00:00: [address] [facility] citalopram 10 mg tablet 3-0 2-17 00:00: 00 Yes 10mg Take 1 tablet by mouth in the morning. [facility] QUEtiapine 400 mg tablet 3-0 2-17 00:00: [address] [facility] gabapentin 600 mg tablet 3-0 2-17 00:00: [address] [facility] citalopram 10 mg tablet 3-0 2-17 00:00: 00 Yes 10mg Take 1 tablet by mouth in the morning. [facility] QUEtiapine 400 mg tablet 3-0 2-17 00:00: [address] [facility] gabapentin 600 mg tablet 3-0 2-17 00:00: [address] [facility] citalopram 10 mg tablet 3-0 2-17 00:00: 00 Yes 10mg Take 1 tablet by mouth in the morning. [facility] QUEtiapine 400 mg tablet 2023-0 2-17 00:00: [address] [facility] gabapentin 600 mg tablet 2023-0 2-17 00:00: [address] [facility] citalopram 10 mg tablet 2023-0 2-17 00:00: 00 Yes 10mg Take 1 tablet by mouth in the morning. [facility] QUEtiapine 400 mg tablet 2023-0 2-17 00:00: 00 Yes [facility] gabapentin 600 mg tablet 3-0 2-17 00:00: 00 Yes [facility] citalopram 10 mg tablet 3-0 2-17 00:00: 00 Yes 10mg Take 1 tablet by mouth in the morning. [facility] QUEtiapine 400 mg tablet 3-0 2-17 00:00: 00 Yes [facility] gabapentin 600 mg tablet 3-0 2-17 00:00: 00 Yes [facility] citalopram 10 mg tablet 2023-0 2-17 00:00: 00 Yes 10mg Take 1 tablet by mouth in the morning. [facility] QUEtiapine 400 mg tablet 3-0 2-17 00:00: 00 Yes [facility] gabapentin 600 mg tablet 2023-0 2-17 00:00: 00 Yes [facility] citalopram 10 mg tablet 2023-0 2-17 00:00: 00 Yes 10mg Take 1 tablet by mouth in the morning. [facility] QUEtiapine 400 mg tablet 2023-0 2-17 00:00: 00 Yes [facility] gabapentin 600 mg tablet 2023-0 2-17 00:00: [address] [facility] citalopram 10 mg tablet 2023-0 2-17 00:00: 00 Yes 10mg Take 1 tablet by mouth in the morning. [facility] QUEtiapine 400 mg tablet 2023-0 2-17 00:00: 00 Yes [facility] gabapentin 600 mg tablet 2023-0 2-17 00:00: 00 Yes [facility] citalopram 10 mg tablet 3-0 2-17 00:00: 00 Yes 10mg Take 1 tablet by mouth in the morning. [facility] QUEtiapine 400 mg tablet 3-0 2-17 00:00: 00 Yes [facility] gabapentin 600 mg tablet 3-0 2-17 00:00: 00 Yes [facility] citalopram 10 mg tablet 3-0 2-17 00:00: 00 Yes 10mg Take 1 tablet by mouth in the morning. [facility] QUEtiapine 400 mg tablet 3-0 2-17 00:00: 00 Yes [facility] gabapentin 600 mg tablet 3-0 2-17 00:00: 00 Yes [facility] citalopram 10 mg tablet 3-0 2-17 00:00: 00 Yes 10mg Take 1 tablet by mouth in the morning. [facility] QUEtiapine 400 mg tablet 3-0 2-17 00:00: 00 Yes [facility] gabapentin 600 mg tablet 3-0 2-17 00:00: 00 Yes [facility] methylPREDN ISolone (MEDROL, ANABELA,) 4 mg tablets 2022-0 2-11 00:00: 00 Yes [id number] Take by mouth SEE-INSTRU CTIONS. follow package directions [facility] methylPREDN ISolone (MEDROL, ANABELA,) 4 mg tablets 3-0 2-11 00:00: 00 Yes [id number] Take by mouth SEE-INSTRU CTIONS. follow package directions [facility] methylPREDN ISolone (MEDROL, ANABELA,) 4 mg tablets 3-0 2-11 00:00: 00 Yes [id number] Take by mouth SEE-INSTRU CTIONS. follow package directions [facility] methylPREDN ISolone (MEDROL, ANABELA,) 4 mg tablets 3-0 2-11 00:00: 00 Yes [id number] Take by mouth SEE-INSTRU CTIONS. follow package directions [facility] methylPREDN ISolone (MEDROL, ANABELA,) 4 mg tablets 3-0 2-11 00:00: 00 Yes [id number] Take by mouth SEE-INSTRU CTIONS. follow package directions [facility] methylPREDN ISolone (MEDROL, ANABELA,) 4 mg tablets 0 2- 00:00: 00 Yes [id number] Take by mouth SEE-INSTRU CTIONS. follow package directions [facility] methylPREDN ISolone (MEDROL, ANABELA,) 4 mg tablets 2022-0 2- 00:00: 00 Yes [id number] Take by mouth SEE-INSTRU CTIONS. follow package directions [facility] methylPREDN ISolone (MEDROL, ANABELA,) 4 mg tablets 0 2 00:00: 00 Yes [id number] Take by mouth SEE-INSTRU CTIONS. follow package directions [facility] methylPREDN ISolone (MEDROL, ANABELA,) 4 mg tablets 0 2 00:00: 00 Yes [id number] Take by mouth SEE-INSTRU CTIONS. follow package directions [facility] methylPREDN ISolone (MEDROL, ANABELA,) 4 mg tablets 0 06-23 00:00: 00 Yes [id number] Take by mouth SEE-INSTRU CTIONS. follow package directions [facility] methylPREDN ISolone (MEDROL, ANABELA,) 4 mg tablets 0 2 00:00: 00 Yes [id number] Take by mouth SEE-INSTRU CTIONS. follow package directions [facility] methylPREDN ISolone (MEDROL, ANABELA,) 4 mg tablets 0 2- 00:00: 00 Yes [id number] Take by mouth SEE-INSTRU CTIONS. follow package directions [facility] methylPREDN ISolone (MEDROL, ANABELA,) 4 mg tablets 0 2 00:00: 00 Yes [id number] Take by mouth SEE-INSTRU CTIONS. follow package directions [facility] methylPREDN ISolone (MEDROL, ANABELA,) 4 mg tablets 2022-0 211 00:00: 00 Yes [id number] Take by mouth SEE-INSTRU CTIONS. follow package directions [facility] bromphenira mine-pseudo ephedrine-D M (BROMFED DM) 2-30-10 mg/5 mL syrup 2-11 00:00: 00 07-04 05:59 :00 No [id number] 5mL Take 5 mL by mouth 4 (four) times daily as needed for Cold symptoms for up to 10 days. [facility] methocarbam oL 750 mg tablet 06-23 00:00: 00 07-01 05:59 :00 No [id number] 750mg Take 1 tablet by mouth 4 (four) times daily for 7 days. [facility] magnesium sulfate in water 2 gram/50 mL (4 %) infusion 2 g 2021-05 21:00: 00 05-05 21:15 :00 No 2g 2 g, IV Piggyback, Administer over 15 Minutes, ONCE, 1 dose, On 05/05/22 at 1500, [facility] butalbital- acetaminoph en-caff (ESGIC) 50-325-40 mg tablet 1 tablet 2021-05 20:15: 00 05-05 20:56 :00 No 1{tbl} 1 tablet, Oral, ONCE, 1 dose, On 05/05/22 at 1415, [facility] dexamethaso ne sod phos PF injection 10 mg 2021-05 20:15: 00 05-05 21:00 :00 No 10mg 10 mg, Slow IV Push, ONCE, 1 dose, On 05/05/22 at 1415, 1 mL [facility] NaCl 0.9% (NS) bolus infusion 1,000 mL 2021-05 20:00: 00 05-05 21:45 :00 No 1000mL at 999 mL/hr, 1,000 mL, IV Infusion, ONCE, 1 dose, On 05/05/22 at 1400, [facility] diphenhydrA MINE (BENADRYL) injection 25 mg 2021-05 19:15: 00 05-05 19:42 :00 No 25mg 25 mg, Slow IV Push, ONCE, 1 dose, On 05/05/22 at 1315, STAT [facility] ondansetron (ZOFRAN (PF)) injection 4 mg 2021-05 19:15: 00 05-05 19:45 :00 No 4mg 4 mg, Slow IV Push, ONCE, 1 dose, On 05/05/22 at 1315, [place] [facility] ketorolac (TORADOL) injection 30 mg 2021-05 19:15: 00 05-05 19:44 :00 No 30mg 30 mg, Slow IV Push, ONCE, 1 dose, On 05/05/22 at 1315, Routine [facility] butalbital- acetaminoph en-caff 50-325-40 mg tablet 2021-05 00:00: 00 Yes [id number] 1{tbl} Take 1 tablet by mouth every 4 (four) hours as needed for Pain (scale 7-10). [facility] butalbital- acetaminoph en-caff 50-325-40 mg tablet 2021-05 00:00: 00 Yes [id number] 1{tbl} Take 1 tablet by mouth every 4 (four) hours as needed for Pain (scale 7-10). [facility] butalbital- acetaminoph en-caff 50-325-40 mg tablet 2021-05 00:00: 00 Yes [id number] 1{tbl} Take 1 tablet by mouth every 4 (four) hours as needed for Pain (scale 7-10). [facility] butalbital- acetaminoph en-caff 50-325-40 mg tablet 2021-05 00:00: 00 Yes [id number] 1{tbl} Take 1 tablet by mouth every 4 (four) hours as needed for Pain (scale 7-10). [facility] butalbital- acetaminoph en-caff 50-325-40 mg tablet 2021-05 00:00: 00 Yes [id number] 1{tbl} Take 1 tablet by mouth every 4 (four) hours as needed for Pain (scale 7-10). [facility] butalbital- acetaminoph en-caff 50-325-40 mg tablet 2021-05 00:00: 00 Yes [id number] 1{tbl} Take 1 tablet by mouth every 4 (four) hours as needed for Pain (scale 7-10). [facility]- acetaminoph en-caff 50-325-40 mg tablet 2021-05 00:00: 00 Yes [id number] 1{tbl} Take 1 tablet by mouth every 4 (four) hours as needed for Pain (scale 7-10). [facility] butalbital- acetaminoph en-caff 50-325-40 mg tablet 2021-05 00:00: 00 Yes [id number] 1{tbl} Take 1 tablet by mouth every 4 (four) hours as needed for Pain (scale 7-10). [facility] butalbital- acetaminoph en-caff 50-325-40 mg tablet 2021-05 00:00: 00 Yes [id number] 1{tbl} Take 1 tablet by mouth every 4 (four) hours as needed for Pain (scale 7-10). [facility] butalbital- acetaminoph en-caff 50-325-40 mg tablet 2021-05 00:00: 00 Yes [id number] 1{tbl} Take 1 tablet by mouth every 4 (four) hours as needed for Pain (scale 7-10). [facility] butalbital- acetaminoph en-caff 50-325-40 mg tablet 2021-05 00:00: 00 Yes [id number] 1{tbl} Take 1 tablet by mouth every 4 (four) hours as needed for Pain (scale 7-10). [facility] [facility]- acetaminoph en-caff 50-325-40 mg tablet 2021-05 00:00: 00 Yes [id number] 1{tbl} Take 1 tablet by mouth every 4 (four) hours as needed for Pain (scale 7-10). [facility] butalbital- acetaminoph en-caff 50-325-40 mg tablet 2021-05 00:00: 00 Yes [id number] 1{tbl} Take 1 tablet by mouth every 4 (four) hours as needed for Pain (scale 7-10). [facility] butalbital- acetaminoph en-caff 50-325-40 mg tablet 2021-05 00:00: 00 Yes [id number] 1{tbl} Take 1 tablet by mouth every 4 (four) hours as needed for Pain (scale 7-10). [facility] butalbital- acetaminoph en-caff 50-325-40 mg tablet 2021-05 00:00: 00 Yes [id number] 1{tbl} Take 1 tablet by mouth every 4 (four) hours as needed for Pain (scale 7-10). [facility] butalbital- acetaminoph en-caff 50-325-40 mg tablet 2021-05 00:00: 00 Yes [id number] 1{tbl} Take 1 tablet by mouth every 4 (four) hours as needed for Pain (scale 7-10). [facility] HYDROcodone -acetaminop hen (NORCO) 10-325 mg tablet 1 tablet 2021-05 16:30: 00 04-26 15:23 :00 No 1{tbl} 1 tablet, Oral, ONCE, 1 dose, On Kathie 04/26/22 at 1030, Routine [facility] diphenhydrA MINE (BENADRYL) tablet 25 mg 2021-05 15:45: 00 04-26 15:53 :00 No 25mg 25 mg, Oral, ONCE, 1 dose, On Kathie 04/26/22 at 0945, [place] [facility] NaCl 0.9% (NS) bolus infusion 1,000 mL 2021-05 15:45: 00 04-26 15:55 :00 No 1000mL at 999 mL/hr, 1,000 mL, IV Piggyback, ONCE, 1 dose, On [facility] 04/26/22 at 0945, STAT [facility] ondansetron (ZOFRAN (PF)) injection 4 mg 2021-05 14:45: 00 04-26 14:52 :00 No 4mg 4 mg, Slow IV Push, ONCE, 1 dose, On Kathie 04/26/22 at 0845, Routine [facility] cephALEXin (KEFLEX) 500 mg capsule 2021-05 00:00: 00 05-04 05:59 :00 No [id number] 500mg Take 1 capsule by mouth in the morning and 1 capsule at noon and 1 capsule in the evening. Do all this for 7 days. [facility] ondansetron (ZOFRAN) 4 mg tablet 2021-05 00:00: 00 Yes 4mg Take 1 tablet by mouth every 8 (eight) hours as needed for Nausea and Vomiting (N/V). [facility] ondansetron (ZOFRAN) 4 mg tablet 2021-05 00:00: 00 Yes 4mg Take 1 tablet by mouth every 8 (eight) hours as needed for Nausea and Vomiting (N/V). [facility] ondansetron (ZOFRAN) 4 mg tablet 2021-05 00:00: 00 Yes 4mg Take 1 tablet by mouth every 8 (eight) hours as needed for Nausea and Vomiting (N/V). [facility] ondansetron (ZOFRAN) 4 mg tablet 2021-05 00:00: 00 Yes 4mg Take 1 tablet by mouth every 8 (eight) hours as needed for Nausea and Vomiting (N/V). [facility] ondansetron (ZOFRAN) 4 mg tablet 2021-05 00:00: 00 Yes 4mg Take 1 tablet by mouth every 8 (eight) hours as needed for Nausea and Vomiting (N/V). [facility] ondansetron (ZOFRAN) 4 mg tablet 2021-05 00:00: 00 Yes 4mg Take 1 tablet by mouth every 8 (eight) hours as needed for Nausea and Vomiting (N/V). [facility] ondansetron (ZOFRAN) 4 mg tablet 2021-05 00:00: 00 Yes 4mg Take 1 tablet by mouth every 8 (eight) hours as needed for Nausea and Vomiting (N/V). [facility] ondansetron (ZOFRAN) 4 mg tablet 2021-05 00:00: 00 Yes 4mg Take 1 tablet by mouth every 8 (eight) hours as needed for Nausea and Vomiting (N/V). [facility] ondansetron (ZOFRAN) 4 mg tablet 2021-05 00:00: 00 Yes 4mg Take 1 tablet by mouth every 8 (eight) hours as needed for Nausea and Vomiting (N/V). [facility] ondansetron (ZOFRAN) 4 mg tablet 2021-05 00:00: 00 Yes 4mg Take 1 tablet by mouth every 8 (eight) hours as needed for Nausea and Vomiting (N/V). [facility] ondansetron (ZOFRAN) 4 mg tablet 2021-05 00:00: 00 Yes 4mg Take 1 tablet by mouth every 8 (eight) hours as needed for Nausea and Vomiting (N/V). [facility] ondansetron (ZOFRAN) 4 mg tablet 2021-05 00:00: 00 Yes 4mg Take 1 tablet by mouth every 8 (eight) hours as needed for Nausea and Vomiting (N/V). [facility] ondansetron (ZOFRAN) 4 mg tablet 2021-05 00:00: 00 07-31 00:00 :00 No 4mg Take 1 tablet by mouth every 8 (eight) hours as needed for Nausea and Vomiting (N/V). [facility] galcanezuma b-gnlm prefilled (EMGALITY) subcutaneou s injection 2021-05 00:00: 00 Yes [id number] 120mg inject 120 mg under the skin once every month. [facility] galcanezuma b-gnlm prefilled (EMGALITY) subcutaneou s injection 2021-05 00:00: 00 Yes [id number] 120mg inject 120 mg under the skin once every month. [facility] galcanezuma b-gnlm prefilled (EMGALITY) subcutaneou s injection 2021-05 00:00: 00 Yes [id number] 120mg inject 120 mg under the skin once every month. [facility] galcanezuma b-gnlm prefilled (EMGALITY) subcutaneou s injection 2021-05 00:00: 00 Yes [id number] 120mg inject 120 mg under the skin once every month. [facility] galcanezuma b-gnlm prefilled (EMGALITY) subcutaneou s injection 2021-05 00:00: 00 Yes [id number] 120mg inject 120 mg under the skin once every month. [facility] galcanezuma b-gnlm prefilled (EMGALITY) subcutaneou s injection 2021-05 00:00: 00 Yes [id number] 120mg inject 120 mg under the skin once every month. [facility] galcanezuma b-gnlm prefilled (EMGALITY) subcutaneou s injection 2021-05 00:00: 00 Yes [id number] 120mg inject 120 mg under the skin once every month. [facility] galcanezuma b-gnlm prefilled (EMGALITY) subcutaneou s injection 2021-05 00:00: 00 Yes [id number] 120mg inject 120 mg under the skin once every month. [facility] galcanezuma b-gnlm prefilled (EMGALITY) subcutaneou s injection 2021-05 00:00: 00 Yes [id number] 120mg inject 120 mg under the skin once every month. [facility] galcanezuma b-gnlm prefilled (EMGALITY) subcutaneou s injection 2021-05 00:00: 00 Yes [id number] 120mg inject 120 mg under the skin once every month. [facility] galcanezuma b-gnlm prefilled (EMGALITY) subcutaneou s injection 2021-05 00:00: 00 Yes [id number] 120mg inject 120 mg under the skin once every month. [facility] galcanezuma b-gnlm prefilled (EMGALITY) subcutaneou s injection 2021-05 00:00: 00 Yes [id number] 120mg inject 120 mg under the skin once every month. [facility] galcanezuma b-gnlm prefilled (EMGALITY) subcutaneou s injection 2021-05 00:00: 00 Yes [id number] 120mg inject 120 mg under the skin once every month. [facility] galcanezuma b-gnlm prefilled (EMGALITY) subcutaneou s injection 2021-05 00:00: 00 Yes [id number] 120mg inject 120 mg under the skin once every month. [facility] galcanezuma b-gnlm prefilled (EMGALITY) subcutaneou s injection 2021-05 00:00: 00 Yes [id number] 120mg inject 120 mg under the skin once every month. [facility] galcanezuma b-gnlm prefilled (EMGALITY) subcutaneou s injection 2021-05 00:00: 00 Yes [id number] 120mg inject 120 mg under the skin once every month. [facility] galcanezuma b-gnlm prefilled (EMGALITY) subcutaneou s injection 2021-05 00:00: 00 Yes [id number] 120mg inject 120 mg under the skin once every month. [facility] galcanezuma b-gnlm prefilled (EMGALITY) subcutaneou s injection 2021-05 00:00: 00 Yes [id number] 120mg inject 120 mg under the skin once every month. [facility] galcanezuma b-gnlm prefilled (EMGALITY) subcutaneou s injection 2021-05 00:00: 00 Yes [id number] 120mg inject 120 mg under the skin once every month. [facility] galcanezuma b-gnlm prefilled (EMGALITY) subcutaneou s injection 2021-05 00:00: 00 Yes [id number] 120mg inject 120 mg under the skin once every month. [facility] galcanezuma b-gnlm prefilled (EMGALITY) subcutaneou s injection 2021-05 00:00: 00 Yes [id number] 120mg inject 120 mg under the skin once every month. [facility] galcanezuma b-gnlm prefilled (EMGALITY) subcutaneou s injection 2021-05 00:00: 00 Yes [id number] 120mg inject 120 mg under the skin once every month. [facility] galcanezuma b-gnlm prefilled (EMGALITY) subcutaneou s injection 2021-05 00:00: 00 Yes [id number] 120mg inject 120 mg under the skin once every month. [facility] galcanezuma b-gnlm prefilled (EMGALITY) subcutaneou s injection 2021-05 00:00: 00 Yes [id number] 120mg inject 120 mg under the skin once every month. [facility] galcanezuma b-gnlm prefilled (EMGALITY) subcutaneou s injection 2021-05 00:00: 00 Yes [id number] 120mg inject 120 mg under the skin once every month. [facility] galcanezuma b-gnlm prefilled (EMGALITY) subcutaneou s injection 2021-05 00:00: 00 Yes [id number] 120mg inject 120 mg under the skin once every month. [facility] galcanezuma b-gnlm prefilled (EMGALITY) subcutaneou s injection 2021-05 00:00: 00 Yes [id number] 120mg inject 120 mg under the skin once every month. [facility] galcanezuma b-gnlm prefilled (EMGALITY) subcutaneou s injection 2021-05 00:00: 00 Yes [id number] 120mg inject 120 mg under the skin once every month. [facility] galcanezuma b-gnlm prefilled (EMGALITY) subcutaneou s injection 2021-05 00:00: 00 Yes [id number] 120mg inject 120 mg under the skin once every month. [facility] galcanezuma b-gnlm prefilled (EMGALITY) subcutaneou s injection 2021-05 00:00: 00 Yes [id number] 120mg inject 120 mg under the skin once every month. [facility] galcanezuma b-gnlm prefilled (EMGALITY) subcutaneou s injection 2021-05 00:00: 00 Yes [id number] 120mg inject 120 mg under the skin once every month. [facility] galcanezuma b-gnlm prefilled (EMGALITY) subcutaneou s injection 2021-05 00:00: 00 Yes [id number] 120mg inject 120 mg under the skin once every month. [facility] galcanezuma b-gnlm prefilled (EMGALITY) subcutaneou s injection 2021-05 00:00: 00 Yes [id number] 120mg inject 120 mg under the skin once every month. [facility] galcanezuma b-gnlm prefilled (EMGALITY) subcutaneou s injection 2021-05 00:00: 00 Yes [id number] 120mg inject 120 mg under the skin once every month. [facility] galcanezuma b-gnlm prefilled (EMGALITY) subcutaneou s injection 2021-05 00:00: 00 Yes [id number] 120mg inject 120 mg under the skin once every month. [facility] galcanezuma b-gnlm prefilled (EMGALITY) subcutaneou s injection 2021-05 00:00: 00 Yes [id number] 120mg inject 120 mg under the skin once every month. [facility] methocarbam oL (ROBAXIN) injection 1,000 mg 2021-05 04:00: 00 Yes 1000mg 1,000 mg, Intravenou s, Q8H, First dose on 04/07/22 at 2200, Until Discontinu ed, Routine [facility] ketorolac (TORADOL) injection 30 mg 2021-05 00:45: 00 04-07 23:45 :00 No 30mg 30 mg, Slow IV Push, ONCE, 1 dose, On 04/07/22 at 1845, Routine [facility] HYDROcodone -acetaminop hen (NORCO) 10-325 mg tablet 1 tablet 2021-05 00:30: 00 04-07 23:45 :00 No 1{tbl} 1 tablet, Oral, ONCE NOW, 1 dose, On 04/07/22 at 1830, Routine [facility] diphenhydrA MINE (BENADRYL) injection 12.5 mg 2021-05 23:45: 00 04-07 23:46 :00 No 12.5mg 12.5 mg, Slow IV Push, ONCE, 1 dose, On 04/07/22 at 1745, STAT [facility] butorphanol (STADOL) injection 1 mg 2021-05 23:15: 00 04-07 22:48 :00 No 1mg 1 mg, IV Push, ONCE, 1 dose, On 04/07/22 at 1715, Routine [facility] NaCl 0.9% (NS) bolus infusion 1,000 mL 2021-05 23:15: 00 04-07 23:49 :00 No 1000mL at 999 mL/hr, 1,000 mL, IV Infusion, ONCE, 1 dose, On 04/07/22 at 1715, [place] [facility] ketorolac (TORADOL) injection 15 mg 2021-05 19:30: 00 03-24 18:45 :00 No 15mg 15 mg, Slow IV Push, ONCE, 1 dose, On 03/24/22 at 1330, Routine [facility] butorphanol (STADOL) injection 1 mg 2021-05 18:00: 00 03-24 17:26 :00 No 1mg 1 mg, Intravenou s, ONCE, 1 dose, On 03/24/22 at 1200, Routine [facility] proMETHazin e (PHENERGAN) 25 mg in NaCl 0.9% (NS) 50 mL IV piggyback 2021-05 18:00: 00 03-24 18:13 :00 No 25mg 25 mg, IV Piggyback, ONCE, 1 dose, On 03/24/22 at 1200, [place] [facility] butorphanol (STADOL) injection 1 mg 2021-05 17:15: 00 03-24 16:26 :00 No 1mg 1 mg, IV Push, ONCE, 1 dose, On 03/24/22 at 1115, Routine [facility] diphenhydrA MINE (BENADRYL) injection 25 mg 2021-05 15:30: 00 03-24 15:40 :00 No 25mg 25 mg, Slow IV Push, ONCE, 1 dose, On 03/24/22 at 0930, STAT [facility] ondansetron (ZOFRAN (PF)) injection 4 mg 2021-05 15:30: 00 03-24 14:25 :00 No 4mg 4 mg, Slow IV Push, ONCE, 1 dose, On 03/24/22 at 0930, [place] [facility] NaCl 0.9% (NS) IV infusion 1,000 mL 2021-05 15:15: 00 03-24 17:25 :00 No 1000mL at 999 mL/hr, Intravenou s, ONCE, 1 dose, On 03/24/22 at 0915, [facility] magnesium sulfate in water 2 gram/50 mL (4 %) infusion 2 g 2021-05 15:00: 00 03-24 14:47 :00 No 2g 2 g, IV Piggyback, Administer over 20 Minutes, ONCE, 1 dose, On 03/24/22 at 0900, Routine [facility] dexamethaso ne sod phos PF injection 6 mg 2021-05 14:15: 00 03-24 14:14 :00 No 6mg 6 mg, Slow IV Push, ONCE, 1 dose, On 03/24/22 at 0815, 1 mL [facility] diphenhydrA MINE (BENADRYL) injection 25 mg 2021-05 14:15: 00 03-24 14:16 :00 No 25mg 25 mg, Slow IV Push, ONCE, 1 dose, On 03/24/22 at 0815, STAT [facility] ALBUTEROL INHALE 2021-05 07:58: 13 03-24 00:00 :00 No [facility] rizatriptan 10 mg tablet 2021-05 00:00: 00 Yes [id number] 10mg Take 1 tablet by mouth as needed for Migraine. May repeat in 2 hours if needed [facility] Butalbital- Acetaminoph en-Caff (FIORICET) 50-300-40 mg per capsule 2021-05 00:00: 00 Yes [id number] 1{capsu le} Take 1 capsule by mouth every 6 (six) hours as needed for Other (headache) . [facility] magnesium oxide 200 mg magnesium Tab 2021-05 00:00: 00 Yes [id number] 200mg Take 200 mg by mouth 2 (two) times daily. Indication s: headache [facility] rizatriptan 10 mg tablet 2021-05 00:00: 00 Yes [id number] 10mg Take 1 tablet by mouth as needed for Migraine. May repeat in 2 hours if needed [facility] Butalbital- Acetaminoph en-Caff (FIORICET) 50-300-40 mg per capsule 2021-05 00:00: 00 Yes [id number] 1{capsu le} Take 1 capsule by mouth every 6 (six) hours as needed for Other (headache) . [facility] magnesium oxide 200 mg magnesium Tab 2021-05 00:00: 00 Yes [id number] 200mg Take 200 mg by mouth 2 (two) times daily. Indication s: headache [facility] rizatriptan 10 mg tablet 2021-05 00:00: 00 Yes [id number] 10mg Take 1 tablet by mouth as needed for Migraine. May repeat in 2 hours if needed [facility] Butalbital- Acetaminoph en-Caff (FIORICET) 50-300-40 mg per capsule 2021-05 00:00: 00 Yes [id number] 1{capsu le} Take 1 capsule by mouth every 6 (six) hours as needed for Other (headache) . [facility] magnesium oxide 200 mg magnesium Tab 2021-05 00:00: 00 Yes [id number] 200mg Take 200 mg by mouth 2 (two) times daily. Indication s: headache [facility] rizatriptan 10 mg tablet 2021-05 00:00: 00 Yes [id number] 10mg Take 1 tablet by mouth as needed for Migraine. May repeat in 2 hours if needed [facility] Butalbital- Acetaminoph en-Caff (FIORICET) 50-300-40 mg per capsule 2021-05 00:00: 00 Yes [id number] 1{capsu le} Take 1 capsule by mouth every 6 (six) hours as needed for Other (headache) . [facility] rizatriptan 10 mg tablet 2021-05 00:00: 00 Yes [id number] 10mg Take 1 tablet by mouth as needed for Migraine. May repeat in 2 hours if needed [facility] Butalbital- Acetaminoph en-Caff (FIORICET) 50-300-40 mg per capsule 2021-05 00:00: 00 Yes [id number] 1{capsu le} Take 1 capsule by mouth every 6 (six) hours as needed for Other (headache) . [facility] rizatriptan 10 mg tablet 2021-05 00:00: 00 Yes [id number] 10mg Take 1 tablet by mouth as needed for Migraine. May repeat in 2 hours if needed [facility] Butalbital- Acetaminoph en-Caff (FIORICET) 50-300-40 mg per capsule 2021-05 00:00: 00 Yes [id number] 1{capsu le} Take 1 capsule by mouth every 6 (six) hours as needed for Other (headache) . [facility] rizatriptan 10 mg tablet 2021-05 00:00: 00 Yes [id number] 10mg Take 1 tablet by mouth as needed for Migraine. May repeat in 2 hours if needed [facility] Butalbital- Acetaminoph en-Caff (FIORICET) 50-300-40 mg per capsule 2021-05 00:00: 00 Yes [id number] 1{capsu le} Take 1 capsule by mouth every 6 (six) hours as needed for Other (headache) . [facility] rizatriptan 10 mg tablet 2021-05 00:00: 00 Yes [id number] 10mg Take 1 tablet by mouth as needed for Migraine. May repeat in 2 hours if needed [facility] Butalbital- Acetaminoph en-Caff (FIORICET) 50-300-40 mg per capsule 2021-05 00:00: 00 Yes [id number] 1{capsu le} Take 1 capsule by mouth every 6 (six) hours as needed for Other (headache) . [facility] rizatriptan 10 mg tablet 2021-05 00:00: 00 Yes [id number] 10mg Take 1 tablet by mouth as needed for Migraine. May repeat in 2 hours if needed [facility] Butalbital- Acetaminoph en-Caff (FIORICET) 50-300-40 mg per capsule 2021-05 00:00: 00 Yes [id number] 1{capsu le} Take 1 capsule by mouth every 6 (six) hours as needed for Other (headache) . [facility] rizatriptan 10 mg tablet 2021-05 00:00: 00 Yes [id number] 10mg Take 1 tablet by mouth as needed for Migraine. May repeat in 2 hours if needed [facility] Butalbital- Acetaminoph en-Caff (FIORICET) 50-300-40 mg per capsule 2021-05 00:00: 00 Yes [id number] 1{capsu le} Take 1 capsule by mouth every 6 (six) hours as needed for Other (headache) . [facility] rizatriptan 10 mg tablet 2021-05 00:00: 00 Yes [id number] 10mg Take 1 tablet by mouth as needed for Migraine. May repeat in 2 hours if needed [facility] Butalbital- Acetaminoph en-Caff (FIORICET) 50-300-40 mg per capsule 2021-05 00:00: 00 Yes [id number] 1{capsu le} Take 1 capsule by mouth every 6 (six) hours as needed for Other (headache) . [facility] rizatriptan 10 mg tablet 2021-05 00:00: 00 Yes [id number] 10mg Take 1 tablet by mouth as needed for Migraine. May repeat in 2 hours if needed [facility] Butalbital- Acetaminoph en-Caff (FIORICET) 50-300-40 mg per capsule 2021-05 00:00: 00 Yes [id number] 1{capsu le} Take 1 capsule by mouth every 6 (six) hours as needed for Other (headache) . [facility] rizatriptan 10 mg tablet 2021-05 00:00: 00 Yes [id number] 10mg Take 1 tablet by mouth as needed for Migraine. May repeat in 2 hours if needed [facility] Butalbital- Acetaminoph en-Caff (FIORICET) 50-300-40 mg per capsule 2021-05 00:00: 00 Yes [id number] 1{capsu le} Take 1 capsule by mouth every 6 (six) hours as needed for Other (headache) . [facility] rizatriptan 10 mg tablet 2021-05 00:00: 00 Yes [id number] 10mg Take 1 tablet by mouth as needed for Migraine. May repeat in 2 hours if needed [facility] Butalbital- Acetaminoph en-Caff (FIORICET) 50-300-40 mg per capsule 2021-05 00:00: 00 Yes [id number] 1{capsu le} Take 1 capsule by mouth every 6 (six) hours as needed for Other (headache) . [facility] rizatriptan 10 mg tablet 2021-05 00:00: 00 Yes [id number] 10mg Take 1 tablet by mouth as needed for Migraine. May repeat in 2 hours if needed [facility] Butalbital- Acetaminoph en-Caff (FIORICET) 50-300-40 mg per capsule 2021-05 00:00: 00 Yes [id number] 1{capsu le} Take 1 capsule by mouth every 6 (six) hours as needed for Other (headache) . [facility] rizatriptan 10 mg tablet 2021-05 00:00: 00 Yes [id number] 10mg Take 1 tablet by mouth as needed for Migraine. May repeat in 2 hours if needed [facility] Butalbital- Acetaminoph en-Caff (FIORICET) 50-300-40 mg per capsule 2021-05 00:00: 00 Yes [id number] 1{capsu le} Take 1 capsule by mouth every 6 (six) hours as needed for Other (headache) . [facility] rizatriptan 10 mg tablet 2021-05 00:00: 00 Yes [id number] 10mg Take 1 tablet by mouth as needed for Migraine. May repeat in 2 hours if needed [facility] Butalbital- Acetaminoph en-Caff (FIORICET) 50-300-40 mg per capsule 2021-05 00:00: 00 Yes [id number] 1{capsu le} Take 1 capsule by mouth every 6 (six) hours as needed for Other (headache) . [facility] rizatriptan 10 mg tablet 2021-05 00:00: 00 Yes [id number] 10mg Take 1 tablet by mouth as needed for Migraine. May repeat in 2 hours if needed [facility] Butalbital- Acetaminoph en-Caff (FIORICET) 50-300-40 mg per capsule 2021-05 00:00: 00 Yes [id number] 1{capsu le} Take 1 capsule by mouth every 6 (six) hours as needed for Other (headache) . [facility] rizatriptan 10 mg tablet 2021-05 00:00: 00 Yes [id number] 10mg Take 1 tablet by mouth as needed for Migraine. May repeat in 2 hours if needed [facility] Butalbital- Acetaminoph en-Caff (FIORICET) 50-300-40 mg per capsule 2021-05 00:00: 00 Yes [id number] 1{capsu le} Take 1 capsule by mouth every 6 (six) hours as needed for Other (headache) . [facility] rizatriptan 10 mg tablet 2021-05 00:00: 00 Yes [id number] 10mg Take 1 tablet by mouth as needed for Migraine. May repeat in 2 hours if needed [facility] Butalbital- Acetaminoph en-Caff (FIORICET) 50-300-40 mg per capsule 2021-05 00:00: 00 Yes [id number] 1{capsu le} Take 1 capsule by mouth every 6 (six) hours as needed for Other (headache) . [facility] rizatriptan 10 mg tablet 2021-05 00:00: 00 Yes [id number] 10mg Take 1 tablet by mouth as needed for Migraine. May repeat in 2 hours if needed [facility] Butalbital- Acetaminoph en-Caff (FIORICET) 50-300-40 mg per capsule 2021-05 00:00: 00 Yes [id number] 1{capsu le} Take 1 capsule by mouth every 6 (six) hours as needed for Other (headache) . [facility] rizatriptan 10 mg tablet 2021-05 00:00: 00 Yes [id number] 10mg Take 1 tablet by mouth as needed for Migraine. May repeat in 2 hours if needed [facility] Butalbital- Acetaminoph en-Caff (FIORICET) 50-300-40 mg per capsule 2021-05 00:00: 00 Yes [id number] 1{capsu le} Take 1 capsule by mouth every 6 (six) hours as needed for Other (headache) . [facility] rizatriptan 10 mg tablet 2021-05 00:00: 00 Yes [id number] 10mg Take 1 tablet by mouth as needed for Migraine. May repeat in 2 hours if needed [facility] Butalbital- Acetaminoph en-Caff (FIORICET) 50-300-40 mg per capsule 2021-05 00:00: 00 Yes [id number] 1{capsu le} Take 1 capsule by mouth every 6 (six) hours as needed for Other (headache) . [facility] rizatriptan 10 mg tablet 2021-05 00:00: 00 Yes [id number] 10mg Take 1 tablet by mouth as needed for Migraine. May repeat in 2 hours if needed [facility] Butalbital- Acetaminoph en-Caff (FIORICET) 50-300-40 mg per capsule 2021-05 00:00: 00 Yes [id number] 1{capsu le} Take 1 capsule by mouth every 6 (six) hours as needed for Other (headache) . [facility] rizatriptan 10 mg tablet 2021-05 00:00: 00 Yes [id number] 10mg Take 1 tablet by mouth as needed for Migraine. May repeat in 2 hours if needed [facility] Butalbital- Acetaminoph en-Caff (FIORICET) 50-300-40 mg per capsule 2021-05 00:00: 00 Yes [id number] 1{capsu le} Take 1 capsule by mouth every 6 (six) hours as needed for Other (headache) . [facility] rizatriptan 10 mg tablet 2021-05 00:00: 00 Yes [id number] 10mg Take 1 tablet by mouth as needed for Migraine. May repeat in 2 hours if needed [facility] Butalbital- Acetaminoph en-Caff (FIORICET) 50-300-40 mg per capsule 2021-05 00:00: 00 Yes [id number] 1{capsu le} Take 1 capsule by mouth every 6 (six) hours as needed for Other (headache) . [facility] rizatriptan 10 mg tablet 2021-05 00:00: 00 Yes [id number] 10mg Take 1 tablet by mouth as needed for Migraine. May repeat in 2 hours if needed [facility] Butalbital- Acetaminoph en-Caff (FIORICET) 50-300-40 mg per capsule 2021-05 00:00: 00 Yes [id number] 1{capsu le} Take 1 capsule by mouth every 6 (six) hours as needed for Other (headache) . [facility] rizatriptan 10 mg tablet 2021-05 00:00: 00 Yes [id number] 10mg Take 1 tablet by mouth as needed for Migraine. May repeat in 2 hours if needed [facility] Butalbital- Acetaminoph en-Caff (FIORICET) 50-300-40 mg per capsule 2021-05 00:00: 00 Yes [id number] 1{capsu le} Take 1 capsule by mouth every 6 (six) hours as needed for Other (headache) . [facility] rizatriptan 10 mg tablet 2021-05 00:00: 00 Yes [id number] 10mg Take 1 tablet by mouth as needed for Migraine. May repeat in 2 hours if needed [facility] Butalbital- Acetaminoph en-Caff (FIORICET) 50-300-40 mg per capsule 2021-05 00:00: 00 Yes [id number] 1{capsu le} Take 1 capsule by mouth every 6 (six) hours as needed for Other (headache) . [facility] rizatriptan 10 mg tablet 2021-05 00:00: 00 Yes [id number] 10mg Take 1 tablet by mouth as needed for Migraine. May repeat in 2 hours if needed [facility] Butalbital- Acetaminoph en-Caff (FIORICET) 50-300-40 mg per capsule 2021-05 00:00: 00 Yes [id number] 1{capsu le} Take 1 capsule by mouth every 6 (six) hours as needed for Other (headache) . [facility] rizatriptan 10 mg tablet 2021-05 00:00: 00 Yes [id number] 10mg Take 1 tablet by mouth as needed for Migraine. May repeat in 2 hours if needed [facility] Butalbital- Acetaminoph en-Caff (FIORICET) 50-300-40 mg per capsule 2021-05 00:00: 00 Yes [id number] 1{capsu le} Take 1 capsule by mouth every 6 (six) hours as needed for Other (headache) . [facility] rizatriptan 10 mg tablet 2021-05 00:00: 00 Yes [id number] 10mg Take 1 tablet by mouth as needed for Migraine. May repeat in 2 hours if needed [facility] Butalbital- Acetaminoph en-Caff (FIORICET) 50-300-40 mg per capsule 2021-05 00:00: 00 Yes [id number] 1{capsu le} Take 1 capsule by mouth every 6 (six) hours as needed for Other (headache) . [facility] rizatriptan 10 mg tablet 2021-05 00:00: 00 Yes [id number] 10mg Take 1 tablet by mouth as needed for Migraine. May repeat in 2 hours if needed [facility] Butalbital- Acetaminoph en-Caff (FIORICET) 50-300-40 mg per capsule 2021-05 00:00: 00 Yes [id number] 1{capsu le} Take 1 capsule by mouth every 6 (six) hours as needed for Other (headache) . [facility] rizatriptan 10 mg tablet 2021-05 00:00: 00 Yes [id number] 10mg Take 1 tablet by mouth as needed for Migraine. May repeat in 2 hours if needed [facility] Butalbital- Acetaminoph en-Caff (FIORICET) 50-300-40 mg per capsule 2021-05 00:00: 00 Yes [id number] 1{capsu le} Take 1 capsule by mouth every 6 (six) hours as needed for Other (headache) . [facility] rizatriptan 10 mg tablet 2021-05 00:00: 00 Yes [id number] 10mg Take 1 tablet by mouth as needed for Migraine. May repeat in 2 hours if needed [facility] Butalbital- Acetaminoph en-Caff (FIORICET) 50-300-40 mg per capsule 2021-05 00:00: 00 Yes [id number] 1{capsu le} Take 1 capsule by mouth every 6 (six) hours as needed for Other (headache) . [facility] rizatriptan 10 mg tablet 2021-05 00:00: 00 Yes [id number] 10mg Take 1 tablet by mouth as needed for Migraine. May repeat in 2 hours if needed [facility] Butalbital- Acetaminoph en-Caff (FIORICET) 50-300-40 mg per capsule 2021-05 00:00: 00 Yes [id number] 1{capsu le} Take 1 capsule by mouth every 6 (six) hours as needed for Other (headache) . [facility] rizatriptan 10 mg tablet 2021-05 00:00: 00 Yes [id number] 10mg Take 1 tablet by mouth as needed for Migraine. May repeat in 2 hours if needed [facility] Butalbital- Acetaminoph en-Caff (FIORICET) 50-300-40 mg per capsule 2021-05 00:00: 00 Yes [id number] 1{capsu le} Take 1 capsule by mouth every 6 (six) hours as needed for Other (headache) . [facility] rizatriptan 10 mg tablet 2021-05 00:00: 00 Yes [id number] 10mg Take 1 tablet by mouth as needed for Migraine. May repeat in 2 hours if needed [facility] Butalbital- Acetaminoph en-Caff (FIORICET) 50-300-40 mg per capsule 2021-05 00:00: 00 Yes [id number] 1{capsu le} Take 1 capsule by mouth every 6 (six) hours as needed for Other (headache) . [facility] rizatriptan 10 mg tablet 2021-05 00:00: 00 Yes [id number] 10mg Take 1 tablet by mouth as needed for Migraine. May repeat in 2 hours if needed [facility] Butalbital- Acetaminoph en-Caff (FIORICET) 50-300-40 mg per capsule 2021-05 00:00: 00 Yes [id number] 1{capsu le} Take 1 capsule by mouth every 6 (six) hours as needed for Other (headache) . [facility] rizatriptan 10 mg tablet 2021-05 00:00: 00 Yes [id number] 10mg Take 1 tablet by mouth as needed for Migraine. May repeat in 2 hours if needed [facility] Butalbital- Acetaminoph en-Caff (FIORICET) 50-300-40 mg per capsule 2021-05 00:00: 00 Yes [id number] 1{capsu le} Take 1 capsule by mouth every 6 (six) hours as needed for Other (headache) . [facility] rizatriptan 10 mg tablet 2021-05 00:00: 00 Yes [id number] 10mg Take 1 tablet by mouth as needed for Migraine. May repeat in 2 hours if needed [facility] Butalbital- Acetaminoph en-Caff (FIORICET) 50-300-40 mg per capsule 2021-05 00:00: 00 Yes [id number] 1{capsu le} Take 1 capsule by mouth every 6 (six) hours as needed for Other (headache) . [facility] magnesium oxide 200 mg magnesium Tab 2021-05 00:00: 00 04-07 00:00 :00 No [id number] 200mg Take 200 mg by mouth 2 (two) times daily. Indication s: headache [facility] SUMAtriptan 50 mg tablet 2021-05 00:00: 00 Yes 50mg Take 1 tablet by mouth as needed for Migraine. Take one tablet at onset of migraine, may take another tablet 2 hours after initial dose if no relief with first dose. DO NOT EXCEED 100mg in a 24 hour period. [facility] SUMAtriptan 50 mg tablet 2021-05 00:00: 00 Yes 50mg Take 1 tablet by mouth as needed for Migraine. Take one tablet at onset of migraine, may take another tablet 2 hours after initial dose if no relief with first dose. DO NOT EXCEED 100mg in a 24 hour period. [facility] SUMAtriptan 50 mg tablet 2021-05 00:00: 00 Yes 50mg Take 1 tablet by mouth as needed for Migraine. Take one tablet at onset of migraine, may take another tablet 2 hours after initial dose if no relief with first dose. DO NOT EXCEED 100mg in a 24 hour period. [facility] SUMAtriptan 50 mg tablet 2021-05 00:00: 00 Yes 50mg Take 1 tablet by mouth as needed for Migraine. Take one tablet at onset of migraine, may take another tablet 2 hours after initial dose if no relief with first dose. DO NOT EXCEED 100mg in a 24 hour period. [facility] SUMAtriptan 50 mg tablet 2021-05 00:00: 00 Yes 50mg Take 1 tablet by mouth as needed for Migraine. Take one tablet at onset of migraine, may take another tablet 2 hours after initial dose if no relief with first dose. DO NOT EXCEED 100mg in a 24 hour period. [facility] SUMAtriptan 50 mg tablet 2021-05 00:00: 00 Yes 50mg Take 1 tablet by mouth as needed for Migraine. Take one tablet at onset of migraine, may take another tablet 2 hours after initial dose if no relief with first dose. DO NOT EXCEED 100mg in a 24 hour period. [facility] SUMAtriptan 50 mg tablet 2021-05 00:00: 00 Yes 50mg Take 1 tablet by mouth as needed for Migraine. Take one tablet at onset of migraine, may take another tablet 2 hours after initial dose if no relief with first dose. DO NOT EXCEED 100mg in a 24 hour period. [facility] SUMAtriptan 50 mg tablet 2021-05 00:00: 00 Yes 50mg Take 1 tablet by mouth as needed for Migraine. Take one tablet at onset of migraine, may take another tablet 2 hours after initial dose if no relief with first dose. DO NOT EXCEED 100mg in a 24 hour period. [facility] SUMAtriptan 50 mg tablet 2021-05 00:00: 00 Yes 50mg Take 1 tablet by mouth as needed for Migraine. Take one tablet at onset of migraine, may take another tablet 2 hours after initial dose if no relief with first dose. DO NOT EXCEED 100mg in a 24 hour period. [facility] SUMAtriptan 50 mg tablet 2021-05 00:00: 00 Yes 50mg Take 1 tablet by mouth as needed for Migraine. Take one tablet at onset of migraine, may take another tablet 2 hours after initial dose if no relief with first dose. DO NOT EXCEED 100mg in a 24 hour period. [facility] SUMAtriptan 50 mg tablet 2021-05 00:00: 00 Yes 50mg Take 1 tablet by mouth as needed for Migraine. Take one tablet at onset of migraine, may take another tablet 2 hours after initial dose if no relief with first dose. DO NOT EXCEED 100mg in a 24 hour period. [facility] SUMAtriptan 50 mg tablet 2021-05 00:00: 00 Yes 50mg Take 1 tablet by mouth as needed for Migraine. Take one tablet at onset of migraine, may take another tablet 2 hours after initial dose if no relief with first dose. DO NOT EXCEED 100mg in a 24 hour period. [facility] SUMAtriptan 50 mg tablet 2021-05 00:00: 00 Yes 50mg Take 1 tablet by mouth as needed for Migraine. Take one tablet at onset of migraine, may take another tablet 2 hours after initial dose if no relief with first dose. DO NOT EXCEED 100mg in a 24 hour period. [facility] SUMAtriptan 50 mg tablet 2021-05 00:00: 00 Yes 50mg Take 1 tablet by mouth as needed for Migraine. Take one tablet at onset of migraine, may take another tablet 2 hours after initial dose if no relief with first dose. DO NOT EXCEED 100mg in a 24 hour period. [facility] SUMAtriptan 50 mg tablet 2021-05 00:00: 00 Yes 50mg Take 1 tablet by mouth as needed for Migraine. Take one tablet at onset of migraine, may take another tablet 2 hours after initial dose if no relief with first dose. DO NOT EXCEED 100mg in a 24 hour period. [facility] SUMAtriptan 50 mg tablet 2021-05 00:00: 00 Yes 50mg Take 1 tablet by mouth as needed for Migraine. Take one tablet at onset of migraine, may take another tablet 2 hours after initial dose if no relief with first dose. DO NOT EXCEED 100mg in a 24 hour period. [facility] SUMAtriptan 50 mg tablet 2021-05 00:00: 00 Yes 50mg Take 1 tablet by mouth as needed for Migraine. Take one tablet at onset of migraine, may take another tablet 2 hours after initial dose if no relief with first dose. DO NOT EXCEED 100mg in a 24 hour period. [facility] SUMAtriptan 50 mg tablet 2021-05 00:00: 00 Yes 50mg Take 1 tablet by mouth as needed for Migraine. Take one tablet at onset of migraine, may take another tablet 2 hours after initial dose if no relief with first dose. DO NOT EXCEED 100mg in a 24 hour period. [facility] SUMAtriptan 50 mg tablet 2021-05 00:00: 00 Yes 50mg Take 1 tablet by mouth as needed for Migraine. Take one tablet at onset of migraine, may take another tablet 2 hours after initial dose if no relief with first dose. DO NOT EXCEED 100mg in a 24 hour period. [facility] SUMAtriptan 50 mg tablet 2021-05 00:00: 00 Yes 50mg Take 1 tablet by mouth as needed for Migraine. Take one tablet at onset of migraine, may take another tablet 2 hours after initial dose if no relief with first dose. DO NOT EXCEED 100mg in a 24 hour period. [facility] SUMAtriptan 50 mg tablet 2021-05 00:00: 00 Yes 50mg Take 1 tablet by mouth as needed for Migraine. Take one tablet at onset of migraine, may take another tablet 2 hours after initial dose if no relief with first dose. DO NOT EXCEED 100mg in a 24 hour period. [facility] SUMAtriptan 50 mg tablet 2021-05 00:00: 00 Yes 50mg Take 1 tablet by mouth as needed for Migraine. Take one tablet at onset of migraine, may take another tablet 2 hours after initial dose if no relief with first dose. DO NOT EXCEED 100mg in a 24 hour period. [facility] SUMAtriptan 50 mg tablet 2021-05 00:00: 00 Yes 50mg Take 1 tablet by mouth as needed for Migraine. Take one tablet at onset of migraine, may take another tablet 2 hours after initial dose if no relief with first dose. DO NOT EXCEED 100mg in a 24 hour period. [facility] SUMAtriptan 50 mg tablet 2021-05 00:00: 00 Yes 50mg Take 1 tablet by mouth as needed for Migraine. Take one tablet at onset of migraine, may take another tablet 2 hours after initial dose if no relief with first dose. DO NOT EXCEED 100mg in a 24 hour period. [facility] SUMAtriptan 50 mg tablet 2021-05 00:00: 00 Yes 50mg Take 1 tablet by mouth as needed for Migraine. Take one tablet at onset of migraine, may take another tablet 2 hours after initial dose if no relief with first dose. DO NOT EXCEED 100mg in a 24 hour period. [facility] SUMAtriptan 50 mg tablet 2021-05 00:00: 00 Yes 50mg Take 1 tablet by mouth as needed for Migraine. Take one tablet at onset of migraine, may take another tablet 2 hours after initial dose if no relief with first dose. DO NOT EXCEED 100mg in a 24 hour period. [facility] SUMAtriptan 50 mg tablet 2021-05 00:00: 00 Yes 50mg Take 1 tablet by mouth as needed for Migraine. Take one tablet at onset of migraine, may take another tablet 2 hours after initial dose if no relief with first dose. DO NOT EXCEED 100mg in a 24 hour period. [facility] SUMAtriptan 50 mg tablet 2021-05 00:00: 00 Yes 50mg Take 1 tablet by mouth as needed for Migraine. Take one tablet at onset of migraine, may take another tablet 2 hours after initial dose if no relief with first dose. DO NOT EXCEED 100mg in a 24 hour period. [facility] SUMAtriptan 50 mg tablet 2021-05 00:00: 00 Yes 50mg Take 1 tablet by mouth as needed for Migraine. Take one tablet at onset of migraine, may take another tablet 2 hours after initial dose if no relief with first dose. DO NOT EXCEED 100mg in a 24 hour period. [facility] SUMAtriptan 50 mg tablet 2021-05 00:00: 00 Yes 50mg Take 1 tablet by mouth as needed for Migraine. Take one tablet at onset of migraine, may take another tablet 2 hours after initial dose if no relief with first dose. DO NOT EXCEED 100mg in a 24 hour period. [facility] SUMAtriptan 50 mg tablet 2021-05 00:00: 00 Yes 50mg Take 1 tablet by mouth as needed for Migraine. Take one tablet at onset of migraine, may take another tablet 2 hours after initial dose if no relief with first dose. DO NOT EXCEED 100mg in a 24 hour period. [facility] SUMAtriptan 50 mg tablet 2021-05 00:00: 00 Yes 50mg Take 1 tablet by mouth as needed for Migraine. Take one tablet at onset of migraine, may take another tablet 2 hours after initial dose if no relief with first dose. DO NOT EXCEED 100mg in a 24 hour period. [facility] SUMAtriptan 50 mg tablet 2021-05 00:00: 00 Yes 50mg Take 1 tablet by mouth as needed for Migraine. Take one tablet at onset of migraine, may take another tablet 2 hours after initial dose if no relief with first dose. DO NOT EXCEED 100mg in a 24 hour period. [facility] SUMAtriptan 50 mg tablet 2021-05 00:00: 00 Yes 50mg Take 1 tablet by mouth as needed for Migraine. Take one tablet at onset of migraine, may take another tablet 2 hours after initial dose if no relief with first dose. DO NOT EXCEED 100mg in a 24 hour period. [facility] SUMAtriptan 50 mg tablet 2021-05 00:00: 00 Yes 50mg Take 1 tablet by mouth as needed for Migraine. Take one tablet at onset of migraine, may take another tablet 2 hours after initial dose if no relief with first dose. DO NOT EXCEED 100mg in a 24 hour period. [facility] SUMAtriptan 50 mg tablet 2021-05 00:00: 00 Yes 50mg Take 1 tablet by mouth as needed for Migraine. Take one tablet at onset of migraine, may take another tablet 2 hours after initial dose if no relief with first dose. DO NOT EXCEED 100mg in a 24 hour period. [facility] SUMAtriptan 50 mg tablet 2021-05 00:00: 00 Yes 50mg Take 1 tablet by mouth as needed for Migraine. Take one tablet at onset of migraine, may take another tablet 2 hours after initial dose if no relief with first dose. DO NOT EXCEED 100mg in a 24 hour period. [facility] SUMAtriptan 50 mg tablet 2021-05 00:00: 00 Yes 50mg Take 1 tablet by mouth as needed for Migraine. Take one tablet at onset of migraine, may take another tablet 2 hours after initial dose if no relief with first dose. DO NOT EXCEED 100mg in a 24 hour period. [facility] SUMAtriptan 50 mg tablet 2021-05 00:00: 00 Yes 50mg Take 1 tablet by mouth as needed for Migraine. Take one tablet at onset of migraine, may take another tablet 2 hours after initial dose if no relief with first dose. DO NOT EXCEED 100mg in a 24 hour period. [facility] SUMAtriptan 50 mg tablet 2021-05 00:00: 00 Yes 50mg Take 1 tablet by mouth as needed for Migraine. Take one tablet at onset of migraine, may take another tablet 2 hours after initial dose if no relief with first dose. DO NOT EXCEED 100mg in a 24 hour period. [facility] SUMAtriptan 50 mg tablet 2021-05 00:00: 00 Yes 50mg Take 1 tablet by mouth as needed for Migraine. Take one tablet at onset of migraine, may take another tablet 2 hours after initial dose if no relief with first dose. DO NOT EXCEED 100mg in a 24 hour period. [facility] SUMAtriptan 50 mg tablet 2021-05 00:00: 00 Yes 50mg Take 1 tablet by mouth as needed for Migraine. Take one tablet at onset of migraine, may take another tablet 2 hours after initial dose if no relief with first dose. DO NOT EXCEED 100mg in a 24 hour period. [facility] SUMAtriptan 50 mg tablet 2021-05 00:00: 00 Yes 50mg Take 1 tablet by mouth as needed for Migraine. Take one tablet at onset of migraine, may take another tablet 2 hours after initial dose if no relief with first dose. DO NOT EXCEED 100mg in a 24 hour period. [facility] SUMAtriptan 50 mg tablet 2021-05 00:00: 00 Yes 50mg Take 1 tablet by mouth as needed for Migraine. Take one tablet at onset of migraine, may take another tablet 2 hours after initial dose if no relief with first dose. DO NOT EXCEED 100mg in a 24 hour period. [facility] SUMAtriptan 50 mg tablet 2021-05 00:00: 00 Yes 50mg Take 1 tablet by mouth as needed for Migraine. Take one tablet at onset of migraine, may take another tablet 2 hours after initial dose if no relief with first dose. DO NOT EXCEED 100mg in a 24 hour period. [facility] FENTanyl PF (SUBLIMAZE (PF)) injection 50 mcg 2021-05 15:30: 00 03-15 14:56 :00 No 50ug 50 mcg, Slow IV Push, ONCE, 1 dose, On Kathie 03/15/22 at 1030, Routine [facility] proMETHazin e (PHENERGAN) tablet 25 mg 2021-05 14:45: 00 03-15 14:55 :00 No 25mg 25 mg, Oral, ONCE, 1 dose, On Kathie 03/15/22 at 0945, [place] [facility] FENTanyl PF (SUBLIMAZE (PF)) injection 50 mcg 2021-05 14:45: 00 03-15 13:58 :00 No 50ug 50 mcg, Slow IV Push, ONCE, 1 dose, On Kathie 03/15/22 at 0945, Routine [facility] ondansetron (ZOFRAN (PF)) injection 4 mg 2021-05 14:00: 00 03-15 13:58 :00 No 4mg 4 mg, Slow IV Push, ONCE, 1 dose, On Kathie 03/15/22 at 0900, [place] [facility] ondansetron 4 mg disintegrat ing tablet 2021-05 00:00: 00 Yes [id number] 4mg Take 1 tablet by mouth every 8 (eight) hours as needed for Nausea and Vomiting (N/V). [facility] ketorolac 10 mg tablet 2021-05 00:00: 00 Yes [id number] 10mg Take 1 tablet by mouth every 6 (six) hours as needed for Pain (scale 7-10). [facility] proMETHazin e 25 mg tablet 2021-05 00:00: 00 Yes [id number] 25mg Take 1 tablet by mouth every 6 (six) hours as needed for N/V unresponsi ve to Ondansetro n. [facility] ondansetron 4 mg disintegrat ing tablet 2021-05 00:00: 00 Yes [id number] 4mg Take 1 tablet by mouth every 8 (eight) hours as needed for Nausea and Vomiting (N/V). [facility] ketorolac 10 mg tablet 2021-05 00:00: 00 Yes [id number] 10mg Take 1 tablet by mouth every 6 (six) hours as needed for Pain (scale 7-10). [facility] proMETHazin e 25 mg tablet 2021-05 00:00: 00 Yes [id number] 25mg Take 1 tablet by mouth every 6 (six) hours as needed for N/V unresponsi ve to Ondansetro n. [facility] carvediloL 25 mg tablet 2021-05 00:00: 00 Yes [id number] 25mg Take 1 tablet by mouth in the morning and 1 tablet in the evening. Take with meals. [facility] ondansetron 4 mg disintegrat ing tablet 2021-05 00:00: 00 Yes [id number] 4mg Take 1 tablet by mouth every 8 (eight) hours as needed for Nausea and Vomiting (N/V). [facility] ketorolac 10 mg tablet 2021-05 00:00: 00 Yes [id number] 10mg Take 1 tablet by mouth every 6 (six) hours as needed for Pain (scale 7-10). [facility] proMETHazin e 25 mg tablet 2021-05 00:00: 00 Yes [id number] 25mg Take 1 tablet by mouth every 6 (six) hours as needed for N/V unresponsi ve to Ondansetro n. [facility] carvediloL 25 mg tablet 2021-05 00:00: 00 Yes [id number] 25mg Take 1 tablet by mouth in the morning and 1 tablet in the evening. Take with meals. [facility] ondansetron 4 mg disintegrat ing tablet 2021-05 00:00: 00 Yes [id number] 4mg Take 1 tablet by mouth every 8 (eight) hours as needed for Nausea and Vomiting (N/V). [facility] ketorolac 10 mg tablet 2021-05 00:00: 00 Yes [id number] 10mg Take 1 tablet by mouth every 6 (six) hours as needed for Pain (scale 7-10). [facility] proMETHazin e 25 mg tablet 2021-05 00:00: 00 Yes [id number] 25mg Take 1 tablet by mouth every 6 (six) hours as needed for N/V unresponsi ve to Ondansetro n. [facility] carvediloL 25 mg tablet 2021-05 00:00: 00 Yes [id number] 25mg Take 1 tablet by mouth in the morning and 1 tablet in the evening. Take with meals. [facility] ondansetron 4 mg disintegrat ing tablet 2021-05 00:00: 00 Yes [id number] 4mg Take 1 tablet by mouth every 8 (eight) hours as needed for Nausea and Vomiting (N/V). [facility] ketorolac 10 mg tablet 2021-05 00:00: 00 Yes [id number] 10mg Take 1 tablet by mouth every 6 (six) hours as needed for Pain (scale 7-10). [facility] proMETHazin e 25 mg tablet 2021-05 00:00: 00 Yes [id number] 25mg Take 1 tablet by mouth every 6 (six) hours as needed for N/V unresponsi ve to Ondansetro n. [facility] carvediloL 25 mg tablet 2021-05 00:00: 00 Yes [id number] 25mg Take 1 tablet by mouth in the morning and 1 tablet in the evening. Take with meals. [facility] ondansetron 4 mg disintegrat ing tablet 2021-05 00:00: 00 Yes [id number] 4mg Take 1 tablet by mouth every 8 (eight) hours as needed for Nausea and Vomiting (N/V). [facility] ketorolac 10 mg tablet 2021-05 00:00: 00 Yes [id number] 10mg Take 1 tablet by mouth every 6 (six) hours as needed for Pain (scale 7-10). [facility] proMETHazin e 25 mg tablet 2021-05 00:00: 00 Yes [id number] 25mg Take 1 tablet by mouth every 6 (six) hours as needed for N/V unresponsi ve to Ondansetro n. [facility] carvediloL 25 mg tablet 2021-05 00:00: 00 Yes [id number] 25mg Take 1 tablet by mouth in the morning and 1 tablet in the evening. Take with meals. [facility] ondansetron 4 mg disintegrat ing tablet 2021-05 00:00: 00 Yes [id number] 4mg Take 1 tablet by mouth every 8 (eight) hours as needed for Nausea and Vomiting (N/V). [facility] ketorolac 10 mg tablet 2021-05 00:00: 00 Yes [id number] 10mg Take 1 tablet by mouth every 6 (six) hours as needed for Pain (scale 7-10). [facility] proMETHazin e 25 mg tablet 2021-05 00:00: 00 Yes [id number] 25mg Take 1 tablet by mouth every 6 (six) hours as needed for N/V unresponsi ve to Ondansetro n. [facility] carvediloL 25 mg tablet 2021-05 00:00: 00 Yes [id number] 25mg Take 1 tablet by mouth in the morning and 1 tablet in the evening. Take with meals. [facility] ondansetron 4 mg disintegrat ing tablet 2021-05 00:00: 00 Yes [id number] 4mg Take 1 tablet by mouth every 8 (eight) hours as needed for Nausea and Vomiting (N/V). [facility] ketorolac 10 mg tablet 2021-05 00:00: 00 Yes [id number] 10mg Take 1 tablet by mouth every 6 (six) hours as needed for Pain (scale 7-10). [facility] proMETHazin e 25 mg tablet 2021-05 00:00: 00 Yes [id number] 25mg Take 1 tablet by mouth every 6 (six) hours as needed for N/V unresponsi ve to Ondansetro n. [facility] carvediloL 25 mg tablet 2021-05 00:00: 00 Yes [id number] 25mg Take 1 tablet by mouth in the morning and 1 tablet in the evening. Take with meals. [facility] ondansetron 4 mg disintegrat ing tablet 2021-05 00:00: 00 Yes [id number] 4mg Take 1 tablet by mouth every 8 (eight) hours as needed for Nausea and Vomiting (N/V). [facility] ketorolac 10 mg tablet 2021-05 00:00: 00 Yes [id number] 10mg Take 1 tablet by mouth every 6 (six) hours as needed for Pain (scale 7-10). [facility] proMETHazin e 25 mg tablet 2021-05 00:00: 00 Yes [id number] 25mg Take 1 tablet by mouth every 6 (six) hours as needed for N/V unresponsi ve to Ondansetro n. [facility] carvediloL 25 mg tablet 2021-05 00:00: 00 Yes [id number] 25mg Take 1 tablet by mouth in the morning and 1 tablet in the evening. Take with meals. [facility] ondansetron 4 mg disintegrat ing tablet 2021-05 00:00: 00 Yes [id number] 4mg Take 1 tablet by mouth every 8 (eight) hours as needed for Nausea and Vomiting (N/V). [facility] ketorolac 10 mg tablet 2021-05 00:00: 00 Yes [id number] 10mg Take 1 tablet by mouth every 6 (six) hours as needed for Pain (scale 7-10). [facility] proMETHazin e 25 mg tablet 2021-05 00:00: 00 Yes [id number] 25mg Take 1 tablet by mouth every 6 (six) hours as needed for N/V unresponsi ve to Ondansetro n. [facility] carvediloL 25 mg tablet 2021-05 00:00: 00 Yes [id number] 25mg Take 1 tablet by mouth in the morning and 1 tablet in the evening. Take with meals. [facility] carvediloL 25 mg tablet 2021-05 00:00: 00 Yes [id number] 25mg Take 1 tablet by mouth in the morning and 1 tablet in the evening. Take with meals. [facility] carvediloL 25 mg tablet 2021-05 00:00: 00 Yes [id number] 25mg Take 1 tablet by mouth in the morning and 1 tablet in the evening. Take with meals. [facility] carvediloL 25 mg tablet 2021-05 00:00: 00 Yes [id number] 25mg Take 1 tablet by mouth in the morning and 1 tablet in the evening. Take with meals. [facility] carvediloL 25 mg tablet 2021-05 00:00: 00 Yes [id number] 25mg Take 1 tablet by mouth in the morning and 1 tablet in the evening. Take with meals. [facility] carvediloL 25 mg tablet 2021-05 00:00: 00 Yes [id number] 25mg Take 1 tablet by mouth in the morning and 1 tablet in the evening. Take with meals. [facility] carvediloL 25 mg tablet 2021-05 00:00: 00 Yes [id number] 25mg Take 1 tablet by mouth in the morning and 1 tablet in the evening. Take with meals. [facility] carvediloL 25 mg tablet 2021-05 00:00: 00 Yes [id number] 25mg Take 1 tablet by mouth in the morning and 1 tablet in the evening. Take with meals. [facility] carvediloL 25 mg tablet 2021-05 00:00: 00 Yes [id number] 25mg Take 1 tablet by mouth in the morning and 1 tablet in the evening. Take with meals. [facility] carvediloL 25 mg tablet 2021-05 00:00: 00 Yes [id number] 25mg Take 1 tablet by mouth in the morning and 1 tablet in the evening. Take with meals. [facility] carvediloL 25 mg tablet 2021-05 00:00: 00 Yes [id number] 25mg Take 1 tablet by mouth in the morning and 1 tablet in the evening. Take with meals. [facility] carvediloL 25 mg tablet 2021-05 00:00: 00 Yes [id number] 25mg Take 1 tablet by mouth in the morning and 1 tablet in the evening. Take with meals. [facility] carvediloL 25 mg tablet 2021-05 00:00: 00 Yes [id number] 25mg Take 1 tablet by mouth in the morning and 1 tablet in the evening. Take with meals. [facility] carvediloL 25 mg tablet 2021-05 00:00: 00 Yes [id number] 25mg Take 1 tablet by mouth in the morning and 1 tablet in the evening. Take with meals. [facility] carvediloL 25 mg tablet 2021-05 00:00: 00 Yes [id number] 25mg Take 1 tablet by mouth in the morning and 1 tablet in the evening. Take with meals. [facility] carvediloL 25 mg tablet 2021-05 00:00: 00 Yes [id number] 25mg Take 1 tablet by mouth in the morning and 1 tablet in the evening. Take with meals. [facility] carvediloL 25 mg tablet 2021-05 00:00: 00 Yes [id number] 25mg Take 1 tablet by mouth in the morning and 1 tablet in the evening. Take with meals. [facility] carvediloL 25 mg tablet 2021-05 00:00: 00 Yes [id number] 25mg Take 1 tablet by mouth in the morning and 1 tablet in the evening. Take with meals. [facility] carvediloL 25 mg tablet 2021-05 00:00: 00 Yes [id number] 25mg Take 1 tablet by mouth in the morning and 1 tablet in the evening. Take with meals. [facility] carvediloL 25 mg tablet 2021-05 00:00: 00 Yes [id number] 25mg Take 1 tablet by mouth in the morning and 1 tablet in the evening. Take with meals. [facility] carvediloL 25 mg tablet 2021-05 00:00: 00 Yes [id number] 25mg Take 1 tablet by mouth in the morning and 1 tablet in the evening. Take with meals. [facility] carvediloL 25 mg tablet 2021-05 00:00: 00 Yes [id number] 25mg Take 1 tablet by mouth in the morning and 1 tablet in the evening. Take with meals. [facility] carvediloL 25 mg tablet 2021-05 00:00: 00 09-05 00:00 :00 No [id number] 25mg Take 1 tablet by mouth in the morning and 1 tablet in the evening. Take with meals. [facility] carvediloL 25 mg tablet 2021-05 00:00: 00 09-05 00:00 :00 No [id number] 25mg Take 1 tablet by mouth in the morning and 1 tablet in the evening. Take with meals. [facility] ondansetron 4 mg disintegrat ing tablet 2021-05 00:00: 00 04-07 00:00 :00 No [id number] 4mg Take 1 tablet by mouth every 8 (eight) hours as needed for Nausea and Vomiting (N/V). [facility] ketorolac 10 mg tablet 2021-05 00:00: 00 04-07 00:00 :00 No [id number] 10mg Take 1 tablet by mouth every 6 (six) hours as needed for Pain (scale 7-10). [facility] proMETHazin e 25 mg tablet 2021-05 00:00: 00 04-07 00:00 :00 No [id number] 25mg Take 1 tablet by mouth every 6 (six) hours as needed for N/V unresponsi ve to Ondansetro n. [facility] cephALEXin 500 mg capsule 2021-05 00:00: 00 03-19 05:59 :00 No [id number] 500mg Take 1 capsule by mouth 4 (four) times daily for 3 days. [facility] cephALEXin 500 mg capsule 2021-05 00:00: 00 03-19 05:59 :00 No [id number] 500mg Take 1 capsule by mouth 4 (four) times daily for 3 days. [facility] cephALEXin 500 mg capsule 2021-05 00:00: 00 03-19 05:59 :00 No [id number] 500mg Take 1 capsule by mouth 4 (four) times daily for 3 days. [facility] predniSONE 20 mg tablet 2021-05 00:00: 00 03-15 04:59 :00 No [id number] 20mg Take 1 tablet by mouth in the morning for 2 days. [facility] methocarbam oL (ROBAXIN) tablet 500 mg 2021-05 16:45: 00 03-11 17:08 :00 No 500mg 500 mg, Oral, ONCE, 1 dose, On 03/11/22 at 1200, [place] [facility] dexamethaso ne sod phos PF injection 10 mg 2021-05 16:00: 00 03-11 16:00 :00 No 10mg 10 mg, Slow IV Push, ONCE, 1 dose, On 03/11/22 at 1100, 1 mL [facility] diphenhydrA MINE (BENADRYL) injection 25 mg 2021-05 15:46: 00 03-11 16:00 :00 No 25mg 25 mg, Slow IV Push, ONCE, 1 dose, On 03/11/22 at 1100, STAT [facility] NaCl 0.9% (NS) IV infusion 1,000 mL 2021-05 15:45: 00 03-11 16:04 :00 No 1000mL at 999 mL/hr, Intravenou s, ONCE, 1 dose, On 03/11/22 at 1045, Routine [facility] butalbital- acetaminoph en-caff (ESGIC) 50-325-40 mg tablet 1 tablet 2021-05 15:00: 00 03-11 15:05 :00 No 1{tbl} 1 tablet, Oral, ONCE, 1 dose, [facility] 1015[facility] 15 mg 2021-05 14:45: 00 03-11 15:05 :00 No 15mg 15 mg, Slow IV Push, ONCE, 1 dose, On 03/11/22 at 0945, [facility] proMETHazin e (PHENERGAN) 12.5 mg in NaCl 0.9% (NS) 50 mL IV piggyback 2021-05 14:45: 00 03-11 15:04 :00 No 12.5mg 12.5 mg, IV Piggyback, ONCE, 1 dose, On 03/11/22 at 0945, [facility] proMETHazin e 25 mg tablet 2021-05 00:00: 00 Yes [id number] 25mg Take 1 tablet by mouth every 6 (six) hours as needed for Nausea and Vomiting (N/V). [facility] methocarbam oL 500 mg tablet 2021-05 00:00: 00 Yes [id number] 500mg Take 1 tablet by mouth 3 (three) times daily as needed for Pain (scale 7-10). [facility] proMETHazin e 25 mg tablet 2021-05 00:00: 00 Yes [id number] 25mg Take 1 tablet by mouth every 6 (six) hours as needed for Nausea and Vomiting (N/V). [facility] methocarbam oL 500 mg tablet 2021-05 00:00: 00 Yes [id number] 500mg Take 1 tablet by mouth 3 (three) times daily as needed for Pain (scale 7-10). [facility] proMETHazin e 25 mg tablet 2021-05 030 00:00: 00 Yes [id number] 25mg Take 1 tablet by mouth every 6 (six) hours as needed for Nausea and Vomiting (N/V). [facility] methocarbam oL 500 mg tablet 2021-05 030 00:00: 00 Yes [id number] 500mg Take 1 tablet by mouth 3 (three) times daily as needed for Pain (scale 7-10). [facility] proMETHazin e 25 mg tablet 2021-05 030 00:00: 00 Yes [id number] 25mg Take 1 tablet by mouth every 6 (six) hours as needed for Nausea and Vomiting (N/V). [facility] methocarbam oL 500 mg tablet 2021-05 0 00:00: 00 Yes [id number] 500mg Take 1 tablet by mouth 3 (three) times daily as needed for Pain (scale 7-10). [facility] proMETHazin e 25 mg tablet 2021-05 0 00:00: 00 Yes [id number] 25mg Take 1 tablet by mouth every 6 (six) hours as needed for Nausea and Vomiting (N/V). [facility] methocarbam oL 500 mg tablet 2021-05 0 00:00: 00 Yes [id number] 500mg Take 1 tablet by mouth 3 (three) times daily as needed for Pain (scale 7-10). [facility] proMETHazin e 25 mg tablet 2021-05 030 00:00: 00 Yes [id number] 25mg Take 1 tablet by mouth every 6 (six) hours as needed for Nausea and Vomiting (N/V). [facility] methocarbam oL 500 mg tablet 2021-05 030 00:00: 00 Yes [id number] 500mg Take 1 tablet by mouth 3 (three) times daily as needed for Pain (scale 7-10). [facility] proMETHazin e 25 mg tablet 2021-05 030 00:00: 00 Yes [id number] 25mg Take 1 tablet by mouth every 6 (six) hours as needed for Nausea and Vomiting (N/V). [facility] methocarbam oL 500 mg tablet 2021-05 030 00:00: 00 Yes [id number] 500mg Take 1 tablet by mouth 3 (three) times daily as needed for Pain (scale 7-10). [facility] proMETHazin e 25 mg tablet 2021-05 030 00:00: 00 Yes [id number] 25mg Take 1 tablet by mouth every 6 (six) hours as needed for Nausea and Vomiting (N/V). [facility] methocarbam oL 500 mg tablet 2021-05 0 00:00: 00 Yes [id number] 500mg Take 1 tablet by mouth 3 (three) times daily as needed for Pain (scale 7-10). [facility] proMETHazin e 25 mg tablet 2021-05 0 00:00: 00 Yes [id number] 25mg Take 1 tablet by mouth every 6 (six) hours as needed for Nausea and Vomiting (N/V). [facility] methocarbam oL 500 mg tablet 2021-05 0 00:00: 00 Yes [id number] 500mg Take 1 tablet by mouth 3 (three) times daily as needed for Pain (scale 7-10). [facility] proMETHazin e 25 mg tablet 2021-05 0 00:00: 00 Yes [id number] 25mg Take 1 tablet by mouth every 6 (six) hours as needed for Nausea and Vomiting (N/V). [facility] methocarbam oL 500 mg tablet 2021-05 0 00:00: 00 Yes [id number] 500mg Take 1 tablet by mouth 3 (three) times daily as needed for Pain (scale 7-10). [facility] proMETHazin e 25 mg tablet 2021-05 030 00:00: 00 Yes [id number] 25mg Take 1 tablet by mouth every 6 (six) hours as needed for Nausea and Vomiting (N/V). [facility] methocarbam oL 500 mg tablet 2021-05 030 00:00: 00 Yes [id number] 500mg Take 1 tablet by mouth 3 (three) times daily as needed for Pain (scale 7-10). [facility] proMETHazin e 25 mg tablet 2021-05 030 00:00: 00 Yes [id number] 25mg Take 1 tablet by mouth every 6 (six) hours as needed for Nausea and Vomiting (N/V). [facility] proMETHazin e 25 mg tablet 2021-05 0 00:00: 00 Yes [id number] 25mg Take 1 tablet by mouth every 6 (six) hours as needed for Nausea and Vomiting (N/V). [facility] proMETHazin e 25 mg tablet 2021-05 0 00:00: 00 Yes [id number] 25mg Take 1 tablet by mouth every 6 (six) hours as needed for Nausea and Vomiting (N/V). [facility] proMETHazin e 25 mg tablet 2021-05 0 00:00: 00 Yes [id number] 25mg Take 1 tablet by mouth every 6 (six) hours as needed for Nausea and Vomiting (N/V). [facility] proMETHazin e 25 mg tablet 2021-05 0 00:00: 00 Yes [id number] 25mg Take 1 tablet by mouth every 6 (six) hours as needed for Nausea and Vomiting (N/V). [facility] proMETHazin e 25 mg tablet 2021-05 0 00:00: 00 Yes [id number] 25mg Take 1 tablet by mouth every 6 (six) hours as needed for Nausea and Vomiting (N/V). [facility] proMETHazin e 25 mg tablet 2021-05 0 00:00: 00 Yes [id number] 25mg Take 1 tablet by mouth every 6 (six) hours as needed for Nausea and Vomiting (N/V). [facility] proMETHazin e 25 mg tablet 2021-05 030 00:00: 00 Yes [id number] 25mg Take 1 tablet by mouth every 6 (six) hours as needed for Nausea and Vomiting (N/V). [facility] proMETHazin e 25 mg tablet 2021-05 030 00:00: 00 Yes [id number] 25mg Take 1 tablet by mouth every 6 (six) hours as needed for Nausea and Vomiting (N/V). [facility] proMETHazin e 25 mg tablet 2021-05 030 00:00: 00 Yes [id number] 25mg Take 1 tablet by mouth every 6 (six) hours as needed for Nausea and Vomiting (N/V). [facility] proMETHazin e 25 mg tablet 2021-05 030 00:00: 00 Yes [id number] 25mg Take 1 tablet by mouth every 6 (six) hours as needed for Nausea and Vomiting (N/V). [facility] proMETHazin e 25 mg tablet 2021-05 030 00:00: 00 Yes [id number] 25mg Take 1 tablet by mouth every 6 (six) hours as needed for Nausea and Vomiting (N/V). [facility] proMETHazin e 25 mg tablet 2021-05 0 00:00: 00 Yes [id number] 25mg Take 1 tablet by mouth every 6 (six) hours as needed for Nausea and Vomiting (N/V). [facility] proMETHazin e 25 mg tablet 2021-05 0 00:00: 00 Yes [id number] 25mg Take 1 tablet by mouth every 6 (six) hours as needed for Nausea and Vomiting (N/V). [facility] proMETHazin e 25 mg tablet 2021-05 030 00:00: 00 Yes [id number] 25mg Take 1 tablet by mouth every 6 (six) hours as needed for Nausea and Vomiting (N/V). [facility] proMETHazin e 25 mg tablet 2021-05 030 00:00: 00 Yes [id number] 25mg Take 1 tablet by mouth every 6 (six) hours as needed for Nausea and Vomiting (N/V). [facility] proMETHazin e 25 mg tablet 2021-05 030 00:00: 00 Yes [id number] 25mg Take 1 tablet by mouth every 6 (six) hours as needed for Nausea and Vomiting (N/V). [facility] proMETHazin e 25 mg tablet 2021-05 030 00:00: 00 07-31 00:00 :00 No [id number] 25mg Take 1 tablet by mouth every 6 (six) hours as needed for Nausea and Vomiting (N/V). [facility] methocarbam oL 500 mg tablet 2021-05 0-30 00:00: 00 04-07 00:00 :00 No [id number] 500mg Take 1 tablet by mouth 3 (three) times daily as needed for Pain (scale 7-10). [facility] topiramate 25 mg tablet 2021-05 0- 00:00: 00 Yes [id number] 100mg Take 4 tablets by mouth in the morning. [facility] topiramate 25 mg tablet 2021- 0 00:00: 00 Yes [id number] 100mg Take 4 tablets by mouth in the morning. [facility] topiramate 25 mg tablet 2021- 0 00:00: 00 Yes [id number] 100mg Take 4 tablets by mouth in the morning. [facility] topiramate 25 mg tablet 2021- 0 00:00: 00 Yes [id number] 100mg Take 4 tablets by mouth in the morning. [facility] topiramate 25 mg tablet 2021- 0 00:00: 00 Yes [id number] 100mg Take 4 tablets by mouth in the morning. [facility] topiramate 25 mg tablet 2021- 0 00:00: 00 Yes [id number] 100mg Take 4 tablets by mouth in the morning. [facility] topiramate 25 mg tablet 2021- 0 00:00: 00 Yes [id number] 100mg Take 4 tablets by mouth in the morning. [facility] topiramate 25 mg tablet 2021- 0 00:00: 00 Yes [id number] 100mg Take 4 tablets by mouth in the morning. [facility] topiramate 25 mg tablet 2021- 0- 00:00: 00 Yes [id number] 100mg Take 4 tablets by mouth in the morning. [facility] topiramate 25 mg tablet 2021- 0- 00:00: 00 Yes [id number] 100mg Take 4 tablets by mouth in the morning. [facility] topiramate 25 mg tablet 2021-1 0-21 00:00: 00 Yes [id number] 100mg Take 4 tablets by mouth in the morning. [facility] topiramate 25 mg tablet 2021-1 0- 00:00: 00 Yes [id number] 100mg Take 4 tablets by mouth in the morning. [facility] topiramate 25 mg tablet 2021-1 0- 00:00: 00 Yes [id number] 100mg Take 4 tablets by mouth in the morning. [facility] topiramate 25 mg tablet 2021-1 0 00:00: 00 Yes [id number] 100mg Take 4 tablets by mouth in the morning. [facility] topiramate 25 mg tablet 2021-1 0 00:00: 00 Yes [id number] 100mg Take 4 tablets by mouth in the morning. [facility] topiramate 25 mg tablet 2021-1 0 00:00: 00 Yes [id number] 100mg Take 4 tablets by mouth in the morning. [facility] topiramate 25 mg tablet 2021-1 0 00:00: 00 Yes [id number] 100mg Take 4 tablets by mouth in the morning. [facility] topiramate 25 mg tablet 2021-1 0 00:00: 00 Yes [id number] 100mg Take 4 tablets by mouth in the morning. [facility] topiramate 25 mg tablet 2021-1 0 00:00: 00 Yes [id number] 100mg Take 4 tablets by mouth in the morning. [facility] topiramate 25 mg tablet 2021-1 0 00:00: 00 Yes [id number] 100mg Take 4 tablets by mouth in the morning. [facility] topiramate 25 mg tablet 2-1 0 00:00: 00 Yes [id number] 100mg Take 4 tablets by mouth in the morning. [facility] topiramate 25 mg tablet 2021-1 0- 00:00: 00 Yes [id number] 100mg Take 4 tablets by mouth in the morning. [facility] topiramate 25 mg tablet 2-1 0- 00:00: 00 Yes [id number] 100mg Take 4 tablets by mouth in the morning. [facility] topiramate 25 mg tablet 2021-1 021 00:00: 00 Yes [id number] 100mg Take 4 tablets by mouth in the morning. [facility] topiramate 25 mg tablet 2021-1 0 00:00: 00 Yes [id number] 100mg Take 4 tablets by mouth in the morning. [facility] topiramate 25 mg tablet 2-1 0- 00:00: 00 Yes [id number] 100mg Take 4 tablets by mouth in the morning. [facility] topiramate 25 mg tablet 2021-1 0 00:00: 00 Yes [id number] 100mg Take 4 tablets by mouth in the morning. [facility] topiramate 25 mg tablet 2021-1 0 00:00: 00 Yes [id number] 100mg Take 4 tablets by mouth in the morning. [facility] topiramate 25 mg tablet 2-1 0 00:00: 00 Yes [id number] 100mg Take 4 tablets by mouth in the morning. [facility] topiramate 25 mg tablet 2021-1 0 00:00: 00 Yes [id number] 100mg Take 4 tablets by mouth in the morning. [facility] topiramate 25 mg tablet 2021-1 0 00:00: 00 Yes [id number] 100mg Take 4 tablets by mouth in the morning. [facility] topiramate 25 mg tablet 2-1 0 00:00: 00 Yes [id number] 100mg Take 4 tablets by mouth in the morning. [facility] topiramate 25 mg tablet 2021-1 0 00:00: 00 Yes [id number] 100mg Take 4 tablets by mouth in the morning. [facility] topiramate 25 mg tablet 2-1 0- 00:00: 00 Yes [id number] 100mg Take 4 tablets by mouth in the morning. [facility] topiramate 25 mg tablet 2-1 0-21 00:00: 00 Yes [id number] 100mg Take 4 tablets by mouth in the morning. [facility] topiramate 25 mg tablet 2-1 0-21 00:00: 00 Yes [id number] 100mg Take 4 tablets by mouth in the morning. [facility] topiramate 25 mg tablet 2021-1 0- 00:00: 00 Yes [id number] 100mg Take 4 tablets by mouth in the morning. [facility] topiramate 25 mg tablet 2021-1 0- 00:00: 00 Yes [id number] 100mg Take 4 tablets by mouth in the morning. [facility] topiramate 25 mg tablet 2021-1 0 00:00: 00 Yes [id number] 100mg Take 4 tablets by mouth in the morning. [facility] topiramate 25 mg tablet 2021-1 0 00:00: 00 Yes [id number] 100mg Take 4 tablets by mouth in the morning. [facility] topiramate 25 mg tablet 2021-1 0 00:00: 00 Yes [id number] 100mg Take 4 tablets by mouth in the morning. [facility] topiramate 25 mg tablet 2021-1 0 00:00: 00 Yes [id number] 100mg Take 4 tablets by mouth in the morning. [facility] topiramate 25 mg tablet 2021-1 0 00:00: 00 Yes [id number] 100mg Take 4 tablets by mouth in the morning. [facility] topiramate 25 mg tablet 2021-1 0 00:00: 00 Yes [id number] 100mg Take 4 tablets by mouth in the morning. [facility] topiramate 25 mg tablet 2021-1 0 00:00: 00 Yes [id number] 100mg Take 4 tablets by mouth in the morning. [facility] topiramate 25 mg tablet 2-1 0 00:00: 00 Yes [id number] 100mg Take 4 tablets by mouth in the morning. [facility] topiramate 25 mg tablet 2021-1 0- 00:00: 00 Yes [id number] 100mg Take 4 tablets by mouth in the morning. [facility] topiramate 25 mg tablet 2-1 0- 00:00: 00 Yes [id number] 100mg Take 4 tablets by mouth in the morning. [facility] topiramate 25 mg tablet 2021-05 0 00:00: 00 Yes [id number] 100mg Take 4 tablets by mouth in the morning. [facility] topiramate 25 mg tablet 2021-05 0 00:00: 00 Yes [id number] 100mg Take 4 tablets by mouth in the morning. [facility] diphenhydrA MINE 25 mg capsule 2021-05 018 09:39: 59 02-27 00:00 :00 No 25mg Take 25 mg by mouth every 6 (six) hours as needed for Allergies. [facility] diphenhydrA MINE 25 mg capsule 2021-0518 09:39: 59 02-27 00:00 :00 No 25mg Take 25 mg by mouth every 6 (six) hours as needed for Allergies. [facility] diphenhydrA MINE 25 mg capsule 2021-05 09:39: 59 02-27 00:00 :00 No 25mg Take 25 mg by mouth every 6 (six) hours as needed for Allergies. [facility] diphenhydrA MINE 25 mg capsule 2021-05 09:39: 59 02-27 00:00 :00 No 25mg Take 25 mg by mouth every 6 (six) hours as needed for Allergies. [facility] diphenhydrA MINE 25 mg capsule 2021-05 09:39: 59 02-27 00:00 :00 No 25mg Take 25 mg by mouth every 6 (six) hours as needed for Allergies. [facility] citalopram hydrobromid e (CITALOPRAM ORAL) 2021-05 09:39: 49 02-27 00:00 :00 No Take by mouth. [facility] citalopram hydrobromid e (CITALOPRAM ORAL) 2021-0518 09:39: 49 02-27 00:00 :00 No Take by mouth. [facility] citalopram hydrobromid e (CITALOPRAM ORAL) 2021-0518 09:39: 49 02-27 00:00 :00 No Take by mouth. [facility] citalopram hydrobromid e (CITALOPRAM ORAL) 2021-05 018 09:39: 49 02-27 00:00 :00 No Take by mouth. [facility] carbamazepi ne (TEGRETOL ORAL) 2021-05 018 09:39: 28 02-27 00:00 :00 No Take by mouth. [facility] carbamazepi ne (TEGRETOL ORAL) 2021-05 018 09:39: 28 02-27 00:00 :00 No Take by mouth. [facility] carbamazepi ne (TEGRETOL ORAL) 2021-05 018 09:39: 28 02-27 00:00 :00 No Take by mouth. [facility] carbamazepi ne (TEGRETOL ORAL) 2021-05 0 09:39: 28 02-27 00:00 :00 No Take by mouth. [facility] albuterol 90 mcg/actuati on inhaler 2021-05 0 00:00: 00 Yes [id number] 2{puff} Inhale 2 Puffs every 6 (six) hours as needed for Wheezing or Shortness of Breath. [facility] albuterol 90 mcg/actuati on inhaler 2021-05 0 00:00: 00 Yes [id number] 2{puff} Inhale 2 Puffs every 6 (six) hours as needed for Wheezing or Shortness of Breath. [facility] albuterol 90 mcg/actuati on inhaler 2021-05 018 00:00: 00 Yes [id number] 2{puff} Inhale 2 Puffs every 6 (six) hours as needed for Wheezing or Shortness of Breath. [facility] albuterol 90 mcg/actuati on inhaler 2021-05 018 00:00: 00 Yes [id number] 2{puff} Inhale 2 Puffs every 6 (six) hours as needed for Wheezing or Shortness of Breath. [facility] albuterol 90 mcg/actuati on inhaler 2021-05 0-18 00:00: 00 Yes [id number] 2{puff} Inhale 2 Puffs every 6 (six) hours as needed for Wheezing or Shortness of Breath. [facility] albuterol 90 mcg/actuati on inhaler 2021-05 018 00:00: 00 Yes [id number] 2{puff} Inhale 2 Puffs every 6 (six) hours as needed for Wheezing or Shortness of Breath. [facility] albuterol 90 mcg/actuati on inhaler 2021-05 018 00:00: 00 Yes [id number] 2{puff} Inhale 2 Puffs every 6 (six) hours as needed for Wheezing or Shortness of Breath. [facility] albuterol 90 mcg/actuati on inhaler 2021-05 018 00:00: 00 Yes [id number] 2{puff} Inhale 2 Puffs every 6 (six) hours as needed for Wheezing or Shortness of Breath. [facility] albuterol 90 mcg/actuati on inhaler 2021-05 018 00:00: 00 Yes [id number] 2{puff} Inhale 2 Puffs every 6 (six) hours as needed for Wheezing or Shortness of Breath. [facility] albuterol 90 mcg/actuati on inhaler 2021-05 018 00:00: 00 Yes [id number] 2{puff} Inhale 2 Puffs every 6 (six) hours as needed for Wheezing or Shortness of Breath. [facility] albuterol 90 mcg/actuati on inhaler 2021-05 018 00:00: 00 Yes [id number] 2{puff} Inhale 2 Puffs every 6 (six) hours as needed for Wheezing or Shortness of Breath. [facility] albuterol 90 mcg/actuati on inhaler 2021-05 0-18 00:00: 00 Yes [id number] 2{puff} Inhale 2 Puffs every 6 (six) hours as needed for Wheezing or Shortness of Breath. [facility] albuterol 90 mcg/actuati on inhaler 2021-05 0-18 00:00: 00 Yes [id number] 2{puff} Inhale 2 Puffs every 6 (six) hours as needed for Wheezing or Shortness of Breath. [facility] albuterol 90 mcg/actuati on inhaler 2021-05 0-18 00:00: 00 Yes [id number] 2{puff} Inhale 2 Puffs every 6 (six) hours as needed for Wheezing or Shortness of Breath. [facility] albuterol 90 mcg/actuati on inhaler 2021-05 018 00:00: 00 Yes [id number] 2{puff} Inhale 2 Puffs every 6 (six) hours as needed for Wheezing or Shortness of Breath. [facility] albuterol 90 mcg/actuati on inhaler 2021-05 018 00:00: 00 Yes [id number] 2{puff} Inhale 2 Puffs every 6 (six) hours as needed for Wheezing or Shortness of Breath. [facility] albuterol 90 mcg/actuati on inhaler 2021-05 0 00:00: 00 Yes [id number] 2{puff} Inhale 2 Puffs every 6 (six) hours as needed for Wheezing or Shortness of Breath. [facility] albuterol 90 mcg/actuati on inhaler 2021-05 018 00:00: 00 Yes [id number] 2{puff} Inhale 2 Puffs every 6 (six) hours as needed for Wheezing or Shortness of Breath. [facility] albuterol 90 mcg/actuati on inhaler 2021-05 018 00:00: 00 Yes [id number] 2{puff} Inhale 2 Puffs every 6 (six) hours as needed for Wheezing or Shortness of Breath. [facility] albuterol 90 mcg/actuati on inhaler 2021-05 0-18 00:00: 00 Yes [id number] 2{puff} Inhale 2 Puffs every 6 (six) hours as needed for Wheezing or Shortness of Breath. [facility] albuterol 90 mcg/actuati on inhaler 2021-05 018 00:00: 00 Yes [id number] 2{puff} Inhale 2 Puffs every 6 (six) hours as needed for Wheezing or Shortness of Breath. [facility] albuterol 90 mcg/actuati on inhaler 2021-05 018 00:00: 00 Yes [id number] 2{puff} Inhale 2 Puffs every 6 (six) hours as needed for Wheezing or Shortness of Breath. [facility] albuterol 90 mcg/actuati on inhaler 2021-05 018 00:00: 00 Yes [id number] 2{puff} Inhale 2 Puffs every 6 (six) hours as needed for Wheezing or Shortness of Breath. [facility] albuterol 90 mcg/actuati on inhaler 2021-05 018 00:00: 00 Yes [id number] 2{puff} Inhale 2 Puffs every 6 (six) hours as needed for Wheezing or Shortness of Breath. [facility] albuterol 90 mcg/actuati on inhaler 2021-05 018 00:00: 00 Yes [id number] 2{puff} Inhale 2 Puffs every 6 (six) hours as needed for Wheezing or Shortness of Breath. [facility] albuterol 90 mcg/actuati on inhaler 2021-05 018 00:00: 00 Yes [id number] 2{puff} Inhale 2 Puffs every 6 (six) hours as needed for Wheezing or Shortness of Breath. [facility] albuterol 90 mcg/actuati on inhaler 2021-05 018 00:00: 00 Yes [id number] 2{puff} Inhale 2 Puffs every 6 (six) hours as needed for Wheezing or Shortness of Breath. [facility] albuterol 90 mcg/actuati on inhaler 2021-05 018 00:00: 00 Yes [id number] 2{puff} Inhale 2 Puffs every 6 (six) hours as needed for Wheezing or Shortness of Breath. [facility] albuterol 90 mcg/actuati on inhaler 2021-05 018 00:00: 00 Yes [id number] 2{puff} Inhale 2 Puffs every 6 (six) hours as needed for Wheezing or Shortness of Breath. [facility] albuterol 90 mcg/actuati on inhaler 2021-05 018 00:00: 00 Yes [id number] 2{puff} Inhale 2 Puffs every 6 (six) hours as needed for Wheezing or Shortness of Breath. [facility] albuterol 90 mcg/actuati on inhaler 2021-05 018 00:00: 00 Yes [id number] 2{puff} Inhale 2 Puffs every 6 (six) hours as needed for Wheezing or Shortness of Breath. [facility] albuterol 90 mcg/actuati on inhaler 2021-05 018 00:00: 00 Yes [id number] 2{puff} Inhale 2 Puffs every 6 (six) hours as needed for Wheezing or Shortness of Breath. [facility] albuterol 90 mcg/actuati on inhaler 2021-05 018 00:00: 00 Yes [id number] 2{puff} Inhale 2 Puffs every 6 (six) hours as needed for Wheezing or Shortness of Breath. [facility] albuterol 90 mcg/actuati on inhaler 2021-05 018 00:00: 00 Yes [id number] 2{puff} Inhale 2 Puffs every 6 (six) hours as needed for Wheezing or Shortness of Breath. [facility] albuterol 90 mcg/actuati on inhaler 2021-05 018 00:00: 00 Yes [id number] 2{puff} Inhale 2 Puffs every 6 (six) hours as needed for Wheezing or Shortness of Breath. [facility] albuterol 90 mcg/actuati on inhaler 2021-05 018 00:00: 00 Yes [id number] 2{puff} Inhale 2 Puffs every 6 (six) hours as needed for Wheezing or Shortness of Breath. [facility] albuterol 90 mcg/actuati on inhaler 2021-05 018 00:00: 00 Yes [id number] 2{puff} Inhale 2 Puffs every 6 (six) hours as needed for Wheezing or Shortness of Breath. [facility] albuterol 90 mcg/actuati on inhaler 2021-05 0-18 00:00: 00 Yes [id number] 2{puff} Inhale 2 Puffs every 6 (six) hours as needed for Wheezing or Shortness of Breath. [facility] albuterol 90 mcg/actuati on inhaler 2021-05 018 00:00: 00 Yes [id number] 2{puff} Inhale 2 Puffs every 6 (six) hours as needed for Wheezing or Shortness of Breath. [facility] albuterol 90 mcg/actuati on inhaler 2021-05 018 00:00: 00 Yes [id number] 2{puff} Inhale 2 Puffs every 6 (six) hours as needed for Wheezing or Shortness of Breath. [facility] albuterol 90 mcg/actuati on inhaler 2021-05 0 00:00: 00 Yes [id number] 2{puff} Inhale 2 Puffs every 6 (six) hours as needed for Wheezing or Shortness of Breath. [facility] albuterol 90 mcg/actuati on inhaler 2021-05 018 00:00: 00 Yes [id number] 2{puff} Inhale 2 Puffs every 6 (six) hours as needed for Wheezing or Shortness of Breath. [facility] albuterol 90 mcg/actuati on inhaler 2021-05 018 00:00: 00 Yes [id number] 2{puff} Inhale 2 Puffs every 6 (six) hours as needed for Wheezing or Shortness of Breath. [facility] albuterol 90 mcg/actuati on inhaler 2021-05 018 00:00: 00 Yes [id number] 2{puff} Inhale 2 Puffs every 6 (six) hours as needed for Wheezing or Shortness of Breath. [facility] albuterol 90 mcg/actuati on inhaler 2021-05 018 00:00: 00 Yes [id number] 2{puff} Inhale 2 Puffs every 6 (six) hours as needed for Wheezing or Shortness of Breath. [facility] albuterol 90 mcg/actuati on inhaler 2021-05 0-18 00:00: 00 Yes [id number] 2{puff} Inhale 2 Puffs every 6 (six) hours as needed for Wheezing or Shortness of Breath. [facility] albuterol 90 mcg/actuati on inhaler 2021-05 018 00:00: 00 Yes [id number] 2{puff} Inhale 2 Puffs every 6 (six) hours as needed for Wheezing or Shortness of Breath. [facility] albuterol 90 mcg/actuati on inhaler 2021-05 018 00:00: 00 Yes [id number] 2{puff} Inhale 2 Puffs every 6 (six) hours as needed for Wheezing or Shortness of Breath. [facility] albuterol 90 mcg/actuati on inhaler 2021-05 018 00:00: 00 Yes [id number] 2{puff} Inhale 2 Puffs every 6 (six) hours as needed for Wheezing or Shortness of Breath. [facility] albuterol 90 mcg/actuati on inhaler 2021-05 018 00:00: 00 Yes [id number] 2{puff} Inhale 2 Puffs every 6 (six) hours as needed for Wheezing or Shortness of Breath. [facility] albuterol 90 mcg/actuati on inhaler 2021-05 018 00:00: 00 Yes [id number] 2{puff} Inhale 2 Puffs every 6 (six) hours as needed for Wheezing or Shortness of Breath. [facility] albuterol 90 mcg/actuati on inhaler 2021-05 018 00:00: 00 Yes [id number] 2{puff} Inhale 2 Puffs every 6 (six) hours as needed for Wheezing or Shortness of Breath. [facility] albuterol 90 mcg/actuati on inhaler 2021-05 0-18 00:00: 00 Yes [id number] 2{puff} Inhale 2 Puffs every 6 (six) hours as needed for Wheezing or Shortness of Breath. [facility] albuterol 90 mcg/actuati on inhaler 2021-05 0-18 00:00: 00 Yes [id number] 2{puff} Inhale 2 Puffs every 6 (six) hours as needed for Wheezing or Shortness of Breath. [facility] albuterol 90 mcg/actuati on inhaler 2021-05 0-18 00:00: 00 Yes [id number] 2{puff} Inhale 2 Puffs every 6 (six) hours as needed for Wheezing or Shortness of Breath. [facility] albuterol 90 mcg/actuati on inhaler 2021-05 018 00:00: 00 Yes [id number] 2{puff} Inhale 2 Puffs every 6 (six) hours as needed for Wheezing or Shortness of Breath. [facility] SUMAtriptan 50 mg tablet 2021-05 00:00: 00 03-21 00:00 :00 No 50mg Take 50 mg by mouth as needed for Migraine. Take one tablet at onset of migraine, may take another tablet 2 hours after initial dose if no relief with first dose. DO NOT EXCEED 100mg in a 24 hour period. [facility] benzonatate 200 mg capsule 2021-05 018 00:00: 00 03-07 04:59 :00 No [id number] 200mg Take 1 capsule by mouth 3 (three) times daily as needed for Cough for up to 7 days. [facility] benzonatate 200 mg capsule 2021-05 018 00:00: 00 03-07 04:59 :00 No [id number] 200mg Take 1 capsule by mouth 3 (three) times daily as needed for Cough for up to 7 days. [facility] benzonatate 200 mg capsule 2021-05 018 00:00: 00 03-07 04:59 :00 No [id number] 200mg Take 1 capsule by mouth 3 (three) times daily as needed for Cough for up to 7 days. [facility] benzonatate 200 mg capsule 2021-05 0-18 00:00: 00 03-07 04:59 :00 No [id number] 200mg Take 1 capsule by mouth 3 (three) times daily as needed for Cough for up to 7 days. [facility] benzonatate 200 mg capsule 2021-05 0-18 00:00: 00 03-07 04:59 :00 No [id number] 200mg Take 1 capsule by mouth 3 (three) times daily as needed for Cough for up to 7 days. [facility] benzonatate 200 mg capsule 2021-05 0-18 00:00: 00 03-07 04:59 :00 No [id number] 200mg Take 1 capsule by mouth 3 (three) times daily as needed for Cough for up to 7 days. [facility] SUMAtriptan 50 mg tablet 2021-05 018 00:00: 00 02-28 04:59 :00 No [id number] 50mg Take 1 tablet by mouth once now for 1 dose. [facility] SUMAtriptan 50 mg tablet 2021-05 018 00:00: 00 02-28 04:59 :00 No [id number] 50mg Take 1 tablet by mouth once now for 1 dose. [facility] butalbital- acetaminoph en-caff (ESGIC) 50-325-40 mg tablet 1 tablet 2021-05 012 08:15: 00 02-21 08:09 :00 No 1{tbl} 1 tablet, Oral, ONCE, 1 dose, On Sat02/21/22 at 0315, [place] [facility] butorphanol (STADOL) injection 1 mg 2021-05 012 08:15: 00 02-21 07:28 :00 No 1mg 1 mg, IV Push, ONCE, 1 dose, On Sat02/21/22 at 0315, Routine [facility] NaCl 0.9% (NS) bolus infusion 1,000 mL 2021-05 012 07:15: 00 02-21 08:40 :00 No 1000mL at 999 mL/hr, 1,000 mL, IV Infusion, ONCE, 1 dose, On Sat02/21/22 at 0215, [place] [facility] proMETHazin e (PHENERGAN) 12.5 mg in NaCl 0.9% (NS) 50 mL IV piggyback 2021-05 06:30: 00 02-21 06:38 :00 No 12.5mg 12.5 mg, IV Piggyback, ONCE, 1 dose, On Sat02/21/22 at 0130, [place] [facility] dexamethaso ne sod phos PF injection 10 mg 2021-05 06:30: 00 02-21 06:38 :00 No 10mg 10 mg, Slow IV Push, ONCE, 1 dose, On Sat02/21/22 at 0130, 1 mL [facility] ketorolac (TORADOL) injection 15 mg 2021-05 06:30: 00 02-21 06:38 :00 No 15mg 15 mg, Slow IV Push, ONCE, 1 dose, On Sat02/21/22 at 0130, [facility] diphenhydrA MINE (BENADRYL) injection 25 mg 2021-05 06:30: 00 02-21 06:38 :00 No 25mg 25 mg, Slow IV Push, ONCE, 1 dose, On Sat02/21/22 at 0130, STAT [facility] FENTanyl PF (SUBLIMAZE (PF)) injection 50 mcg 2021-05 20:30: 00 02-18 19:44 :00 No 50ug 50 mcg, Slow IV Push, ONCE, 1 dose, On Sat02/18/22 at 1530, Routine [facility] ketorolac (TORADOL) injection 30 mg 2021-05 20:15: 00 02-18 20:09 :00 No 30mg 30 mg, Slow IV Push, ONCE, 1 dose, On Sat02/18/22 at 1515, [facility] iopamidol (ISOVUE 370-500 mL) injection 60 mL 2021-05 19:30: 00 02-18 17:30 :00 No [id number] 60mL 60 mL, Intravenou s, ONCE, 1 dose, On Sat02/18/22 at 1430, Routine [facility] proMETHazin e (PHENERGAN) 12.5 mg in NaCl 0.9% (NS) 50 mL IV piggyback 2021-05 18:15: 00 02-18 18:19 :00 No 12.5mg 12.5 mg, IV Piggyback, ONCE, 1 dose, On [place] 02/18/22 at 1315, [facility] FENTanyl PF (SUBLIMAZE (PF)) injection 50 mcg 2021-05 18:00: 00 02-18 17:26 :00 No 50ug 50 mcg, Slow IV Push, ONCE, 1 dose, On 02/18/22 at 1300, Routine [facility] ondansetron (ZOFRAN (PF)) injection 4 mg 2021-05 17:15: 00 02-18 17:27 :00 No 4mg 4 mg, Slow IV Push, ONCE, 1 dose, On [place] 02/18/22 at 1215, [facility] morpHINE (2 mg/mL) injection 4 mg 01-18 15:15: 00 01-18 14:49 :00 No 4mg 4 mg, Slow IV Push, ONCE, 1 dose, On [place] 01/18/22 at 1015, STAT [facility] ondansetron (ZOFRAN (PF)) injection 4 mg 01-18 13:30: 00 01-18 13:33 :00 No 4mg 4 mg, Slow IV Push, ONCE, 1 dose, On [place] 01/18/22 at 0830, [facility] morpHINE (4 mg/mL) injection 4 mg 01-18 13:30: 00 01-18 13:34 :00 No 4mg 4 mg, Slow IV Push, ONCE, 1 dose, On [place] 01/18/22 at 0830, [facility] morpHINE (4 mg/mL) injection 4 mg 01-18 12:30: 00 01-18 11:39 :00 No 4mg 4 mg, Slow IV Push, ONCE, 1 dose, On [place] 01/18/22 at 0730, [facility] famotidine (PEPCID (PF)) injection 20 mg 01-18 11:30: 00 01-18 10:52 :00 No 20mg 20 mg, Slow IV Push, ONCE, 1 dose, On [place] 01/18/22 at 0630, [facility] ondansetron (ZOFRAN (PF)) injection 4 mg 01-18 11:30: 00 01-18 10:52 :00 No 4mg 4 mg, Slow IV Push, ONCE, 1 dose, [facility] [place] [facility] 0630[facility] (VISIPAQUE 270-150 mL) injection 80 mL 01-18 11:21: 00 01-18 11:15 :00 No [id number] 80mL 80 mL, Intravenou s, ONCE, 1 dose, On [place] 01/18/22 at 0630, Routine [facility] NaCl 0.9% (NS) bolus infusion 1,000 mL 01-18 11:15: 00 01-18 12:59 :00 No 1000mL at 999 mL/hr, 1,000 mL, IV Infusion, ONCE, 1 dose, On [place] 01/18/22 at 0615, [facility] morpHINE (4 mg/mL) injection 4 mg 01-18 10:45: 00 01-18 10:52 :00 No 4mg 4 mg, Slow IV Push, ONCE, 1 dose, On [place] 01/18/22 at 0545, STAT [facility] traMADoL 50 mg tablet 01-18 00:00: 00 Yes [id number] 50mg Take 1 tablet by mouth every 6 (six) hours as needed for Pain (scale 7-10). Indication s: acute pain [facility] ondansetron 4 mg disintegrat ing tablet 01-18 00:00: 00 Yes [id number] 4mg Take 1 tablet by mouth every 8 (eight) hours as needed for Nausea and Vomiting (N/V). [facility] ibuprofen 600 mg tablet 01-18 00:00: 00 Yes [id number] 600mg Take 1 tablet by mouth every 6 (six) hours as needed for Pain (scale 4-6). [facility] traMADoL 50 mg tablet 01-18 00:00: 00 Yes [id number] 50mg Take 1 tablet by mouth every 6 (six) hours as needed for Pain (scale 7-10). Indication s: acute pain [facility] ondansetron 4 mg disintegrat ing tablet 01-18 00:00: 00 Yes [id number] 4mg Take 1 tablet by mouth every 8 (eight) hours as needed for Nausea and Vomiting (N/V). [facility] ibuprofen 600 mg tablet 01-18 00:00: 00 Yes [id number] 600mg Take 1 tablet by mouth every 6 (six) hours as needed for Pain (scale 4-6). [facility] traMADoL 50 mg tablet 01-18 00:00: 00 Yes [id number] 50mg Take 1 tablet by mouth every 6 (six) hours as needed for Pain (scale 7-10). Indication s: acute pain [facility] ondansetron 4 mg disintegrat ing tablet 01-18 00:00: 00 Yes [id number] 4mg Take 1 tablet by mouth every 8 (eight) hours as needed for Nausea and Vomiting (N/V). [facility] ibuprofen 600 mg tablet 01-18 00:00: 00 Yes [id number] 600mg Take 1 tablet by mouth every 6 (six) hours as needed for Pain (scale 4-6). [facility] traMADoL 50 mg tablet 01-18 00:00: 00 Yes [id number] 50mg Take 1 tablet by mouth every 6 (six) hours as needed for Pain (scale 7-10). Indication s: acute pain [facility] ondansetron 4 mg disintegrat ing tablet 01-18 00:00: 00 Yes [id number] 4mg Take 1 tablet by mouth every 8 (eight) hours as needed for Nausea and Vomiting (N/V). [facility] ibuprofen 600 mg tablet 01-18 00:00: 00 Yes [id number] 600mg Take 1 tablet by mouth every 6 (six) hours as needed for Pain (scale 4-6). [facility] traMADoL 50 mg tablet 01-18 00:00: 00 Yes [id number] 50mg Take 1 tablet by mouth every 6 (six) hours as needed for Pain (scale 7-10). Indication s: acute pain [facility] ondansetron 4 mg disintegrat ing tablet 01-18 00:00: 00 Yes [id number] 4mg Take 1 tablet by mouth every 8 (eight) hours as needed for Nausea and Vomiting (N/V). [facility] ibuprofen 600 mg tablet 01-18 00:00: 00 Yes [id number] 600mg Take 1 tablet by mouth every 6 (six) hours as needed for Pain (scale 4-6). [facility] traMADoL 50 mg tablet 01-18 00:00: 00 Yes [id number] 50mg Take 1 tablet by mouth every 6 (six) hours as needed for Pain (scale 7-10). Indication s: acute pain [facility] ondansetron 4 mg disintegrat ing tablet 01-18 00:00: 00 Yes [id number] 4mg Take 1 tablet by mouth every 8 (eight) hours as needed for Nausea and Vomiting (N/V). [facility] ibuprofen 600 mg tablet 01-18 00:00: 00 Yes [id number] 600mg Take 1 tablet by mouth every 6 (six) hours as needed for Pain (scale 4-6). [facility] traMADoL 50 mg tablet 01-18 00:00: 00 Yes [id number] 50mg Take 1 tablet by mouth every 6 (six) hours as needed for Pain (scale 7-10). Indication s: acute pain [facility] ondansetron 4 mg disintegrat ing tablet 01-18 00:00: 00 Yes [id number] 4mg Take 1 tablet by mouth every 8 (eight) hours as needed for Nausea and Vomiting (N/V). [facility] ibuprofen 600 mg tablet 0 08 00:00: 00 Yes [id number] 600mg Take 1 tablet by mouth every 6 (six) hours as needed for Pain (scale 4-6). [facility] traMADoL 50 mg tablet 2021-0 908 00:00: 00 Yes [id number] 50mg Take 1 tablet by mouth every 6 (six) hours as needed for Pain (scale 7-10). Indication s: acute pain [facility] ondansetron 4 mg disintegrat ing tablet 0 01-18 00:00: 00 Yes [id number] 4mg Take 1 tablet by mouth every 8 (eight) hours as needed for Nausea and Vomiting (N/V). [facility] ibuprofen 600 mg tablet 2021-01-18 00:00: 00 Yes [id number] 600mg Take 1 tablet by mouth every 6 (six) hours as needed for Pain (scale 4-6). [facility] traMADoL 50 mg tablet 0 01-18 00:00: 00 02-27 00:00 :00 No [id number] 50mg Take 1 tablet by mouth every 6 (six) hours as needed for Pain (scale 7-10). Indication s: acute pain [facility] ondansetron 4 mg disintegrat ing tablet 01-18 00:00: 00 02-27 00:00 :00 No [id number] 4mg Take 1 tablet by mouth every 8 (eight) hours as needed for Nausea and Vomiting (N/V). [facility] ibuprofen 600 mg tablet 08 00:00: 00 02-27 00:00 :00 No [id number] 600mg Take 1 tablet by mouth every 6 (six) hours as needed for Pain (scale 4-6). [facility] traMADoL 50 mg tablet 2021-0 08 00:00: 00 02-27 00:00 :00 No [id number] 50mg Take 1 tablet by mouth every 6 (six) hours as needed for Pain (scale 7-10). Indication s: acute pain [facility] ondansetron 4 mg disintegrat ing tablet 01-18 00:00: 00 02-27 00:00 :00 No [id number] 4mg Take 1 tablet by mouth every 8 (eight) hours as needed for Nausea and Vomiting (N/V). [facility] ibuprofen 600 mg tablet 01-18 00:00: 00 02-27 00:00 :00 No [id number] 600mg Take 1 tablet by mouth every 6 (six) hours as needed for Pain (scale 4-6). [facility] traMADoL 50 mg tablet 01-18 00:00: 00 02-27 00:00 :00 No [id number] 50mg Take 1 tablet by mouth every 6 (six) hours as needed for Pain (scale 7-10). Indication s: acute pain [facility] ondansetron 4 mg disintegrat ing tablet 01-18 00:00: 00 02-27 00:00 :00 No [id number] 4mg Take 1 tablet by mouth every 8 (eight) hours as needed for Nausea and Vomiting (N/V). [facility] ibuprofen 600 mg tablet 01-18 00:00: 00 02-27 00:00 :00 No [id number] 600mg Take 1 tablet by mouth every 6 (six) hours as needed for Pain (scale 4-6). [facility] traMADoL 50 mg tablet 01-18 00:00: 00 02-27 00:00 :00 No [id number] 50mg Take 1 tablet by mouth every 6 (six) hours as needed for Pain (scale 7-10). Indication s: acute pain [facility] ondansetron 4 mg disintegrat ing tablet 01-18 00:00: 00 02-27 00:00 :00 No [id number] 4mg Take 1 tablet by mouth every 8 (eight) hours as needed for Nausea and Vomiting (N/V). [facility] ibuprofen 600 mg tablet 01-18 00:00: 00 02-27 00:00 :00 No [id number] 600mg Take 1 tablet by mouth every 6 (six) hours as needed for Pain (scale 4-6). [facility] predniSONE 20 mg tablet 01-16 00:00: 00 01-24 04:59 :00 No [id number] 40mg Take 2 tablets by mouth in the morning for 7 days. [facility] predniSONE 20 mg tablet 01-16 00:00: 01-24 04:59 :00 No [id number] 40mg Take 2 tablets by mouth in the morning for 7 days. [facility] morpHINE (4 mg/mL) injection 4 mg 01-15 16:15: 00 01-15 15:28 :00 No 4mg 4 mg, Slow IV Push, ONCE, 1 dose, On Sat01/15/22 at 1115, [facility] proMETHazin e (PHENERGAN) 12.5 mg in NaCl 0.9% (NS) 50 mL IV piggyback 01-15 15:30: 00 01-15 15:28 :00 No 12.5mg 12.5 mg, IV Piggyback, ONCE, 1 dose, On Sat01/15/22 at 1030, [facility] NaCl 0.9% (NS) bolus infusion 1,000 mL 01-15 15:00: 00 01-15 15:38 :00 No 1000mL at 999 mL/hr, 1,000 mL, IV Infusion, ONCE, 1 dose, On Sat01/15/22 at 1000, [facility] morpHINE (4 mg/mL) injection 4 mg 01-15 15:00: 00 01-15 14:37 :00 No 4mg 4 mg, Slow IV Push, ONCE, 1 dose, On Sat01/15/22 at 1000, [facility] ondansetron (ZOFRAN (PF)) injection 8 mg 01-15 14:15: 01-15 14:37 :00 No 8mg 8 mg, Slow IV Push, ONCE, 1 dose, On Sat01/15/22 at 0915, [place] [facility] dexamethaso ne sod phos PF injection 10 mg 01-15 14:15: 00 01-15 14:37 :00 No 10mg 10 mg, Slow IV Push, ONCE, 1 dose, On Sat01/15/22 at 0915, 1 mL [facility] proMETHazin e 25 mg tablet 01-15 00:00: 00 Yes [id number] 25mg Take 1 tablet by mouth every 6 (six) hours as needed for Nausea and Vomiting (N/V). [facility] proMETHazin e 25 mg tablet 01-15 00:00: 00 Yes [id number] 25mg Take 1 tablet by mouth every 6 (six) hours as needed for Nausea and Vomiting (N/V). [facility] proMETHazin e 25 mg tablet 01-15 00:00: 00 Yes [id number] 25mg Take 1 tablet by mouth every 6 (six) hours as needed for Nausea and Vomiting (N/V). [facility] proMETHazin e 25 mg tablet 01-15 00:00: 00 Yes [id number] 25mg Take 1 tablet by mouth every 6 (six) hours as needed for Nausea and Vomiting (N/V). [facility] proMETHazin e 25 mg tablet 01-15 00:00: 00 Yes [id number] 25mg Take 1 tablet by mouth every 6 (six) hours as needed for Nausea and Vomiting (N/V). [facility] proMETHazin e 25 mg tablet 01-15 00:00: 00 Yes [id number] 25mg Take 1 tablet by mouth every 6 (six) hours as needed for Nausea and Vomiting (N/V). [facility] proMETHazin e 25 mg tablet 01-15 00:00: 00 Yes [id number] 25mg Take 1 tablet by mouth every 6 (six) hours as needed for Nausea and Vomiting (N/V). [facility] proMETHazin e 25 mg tablet 01-15 00:00: 00 Yes [id number] 25mg Take 1 tablet by mouth every 6 (six) hours as needed for Nausea and Vomiting (N/V). [facility] proMETHazin e 25 mg tablet 01-15 00:00: 00 Yes [id number] 25mg Take 1 tablet by mouth every 6 (six) hours as needed for Nausea and Vomiting (N/V). [facility] proMETHazin e 25 mg tablet 01-15 00:00: 00 02-27 00:00 :00 No [id number] 25mg Take 1 tablet by mouth every 6 (six) hours as needed for Nausea and Vomiting (N/V). [facility] proMETHazin e 25 mg tablet 01-15 00:00: 00 02-27 00:00 :00 No [id number] 25mg Take 1 tablet by mouth every 6 (six) hours as needed for Nausea and Vomiting (N/V). [facility] proMETHazin e 25 mg tablet 01-15 00:00: 00 02-27 00:00 :00 No [id number] 25mg Take 1 tablet by mouth every 6 (six) hours as needed for Nausea and Vomiting (N/V). [facility] proMETHazin e 25 mg tablet 01-15 00:00: 00 02-27 00:00 :00 No [id number] 25mg Take 1 tablet by mouth every 6 (six) hours as needed for Nausea and Vomiting (N/V). [facility] ondansetron (ZOFRAN-ODT ) disintegrat ing tablet 4 mg 01-09 01:45: 00 01-09 00:56 :00 No 4mg 4 mg, Oral, ONCE, 1 dose, On Sat01/08/22 at 2045, Routine [facility] HYDROcodone -acetaminop hen (NORCO 5) 5-325 mg tablet 1 tablet 01-09 00:45: 00 01-09 00:37 :00 No 1{tbl} 1 tablet, Oral, ONCE, 1 dose, On Sat01/08/22 at 1945, [place] [facility] diphenhydrA MINE (BENADRYL) injection 25 mg 01-08 23:45: 00 01-08 23:51 :00 No 25mg 25 mg, Slow IV Push, ONCE, 1 dose, On Sat01/08/22 at 1845, STAT [facility] dexamethaso ne sod phos PF injection 10 mg 01-08 23:45: 00 01-08 23:50 :00 No 10mg 10 mg, Slow IV Push, ONCE, 1 dose, On Sat01/08/22 at 1845, 1 mL [facility] ketorolac (TORADOL) injection 30 mg 01-08 23:45: 00 01-08 23:51 :00 No 30mg 30 mg, Slow IV Push, ONCE, 1 dose, On Sat01/08/22 at 1845, [place] [facility] ondansetron 4 mg disintegrat ing tablet 01-08 00:00: 00 Yes [id number] 4mg Take 1 tablet by mouth every 8 (eight) hours as needed for Nausea and Vomiting (N/V). [facility] acetaminoph en (TYLENOL ARTHRITIS PAIN) 650 mg CR tablet 01-08 00:00: 00 Yes [id number] 650mg Take 1 tablet by mouth every 8 (eight) hours as needed for Pain. [facility] ketorolac 10 mg tablet 01-08 00:00: 00 Yes [id number] 10mg Take 1 tablet by mouth every 6 (six) hours as needed for Pain (scale 4-6) or Pain (scale 7-10). [facility] metaxalone (SKELAXIN) 800 mg tablet 01-08 00:00: 00 Yes [id number] 800mg Take 1 tablet by mouth in the morning and 1 tablet at noon and 1 tablet in the evening. [facility] ondansetron 4 mg disintegrat ing tablet 01-08 00:00: 00 Yes [id number] 4mg Take 1 tablet by mouth every 8 (eight) hours as needed for Nausea and Vomiting (N/V). [facility] acetaminoph en (TYLENOL ARTHRITIS PAIN) 650 mg CR tablet 01-08 00:00: 00 Yes [id number] 650mg Take 1 tablet by mouth every 8 (eight) hours as needed for Pain. [facility] ketorolac 10 mg tablet 01-08 00:00: 00 Yes [id number] 10mg Take 1 tablet by mouth every 6 (six) hours as needed for Pain (scale 4-6) or Pain (scale 7-10). [facility] metaxalone (SKELAXIN) 800 mg tablet 01-08 00:00: 00 Yes [id number] 800mg Take 1 tablet by mouth in the morning and 1 tablet at noon and 1 tablet in the evening. [facility] ondansetron 4 mg disintegrat ing tablet 01-08 00:00: 00 Yes [id number] 4mg Take 1 tablet by mouth every 8 (eight) hours as needed for Nausea and Vomiting (N/V). [facility] acetaminoph en (TYLENOL ARTHRITIS PAIN) 650 mg CR tablet 01-08 00:00: 00 Yes [id number] 650mg Take 1 tablet by mouth every 8 (eight) hours as needed for Pain. [facility] ketorolac 10 mg tablet 01-08 00:00: 00 Yes [id number] 10mg Take 1 tablet by mouth every 6 (six) hours as needed for Pain (scale 4-6) or Pain (scale 7-10). [facility] metaxalone (SKELAXIN) 800 mg tablet 01-08 00:00: 00 Yes [id number] 800mg Take 1 tablet by mouth in the morning and 1 tablet at noon and 1 tablet in the evening. [facility] ondansetron 4 mg disintegrat ing tablet 01-08 00:00: 00 Yes [id number] 4mg Take 1 tablet by mouth every 8 (eight) hours as needed for Nausea and Vomiting (N/V). [facility] acetaminoph en (TYLENOL ARTHRITIS PAIN) 650 mg CR tablet 01-08 00:00: 00 Yes [id number] 650mg Take 1 tablet by mouth every 8 (eight) hours as needed for Pain. [facility] ketorolac 10 mg tablet 01-08 00:00: 00 Yes [id number] 10mg Take 1 tablet by mouth every 6 (six) hours as needed for Pain (scale 4-6) or Pain (scale 7-10). [facility] metaxalone (SKELAXIN) 800 mg tablet 01-08 00:00: 00 Yes [id number] 800mg Take 1 tablet by mouth in the morning and 1 tablet at noon and 1 tablet in the evening. [facility] ondansetron 4 mg disintegrat ing tablet 01-08 00:00: 00 Yes [id number] 4mg Take 1 tablet by mouth every 8 (eight) hours as needed for Nausea and Vomiting (N/V). [facility] acetaminoph en (TYLENOL ARTHRITIS PAIN) 650 mg CR tablet 01-08 00:00: 00 Yes [id number] 650mg Take 1 tablet by mouth every 8 (eight) hours as needed for Pain. [facility] ketorolac 10 mg tablet 01-08 00:00: 00 Yes [id number] 10mg Take 1 tablet by mouth every 6 (six) hours as needed for Pain (scale 4-6) or Pain (scale 7-10). [facility] metaxalone (SKELAXIN) 800 mg tablet 01-08 00:00: 00 Yes [id number] 800mg Take 1 tablet by mouth in the morning and 1 tablet at noon and 1 tablet in the evening. [facility] ondansetron 4 mg disintegrat ing tablet 01-08 00:00: 00 Yes [id number] 4mg Take 1 tablet by mouth every 8 (eight) hours as needed for Nausea and Vomiting (N/V). [facility] acetaminoph en (TYLENOL ARTHRITIS PAIN) 650 mg CR tablet 01-08 00:00: 00 Yes [id number] 650mg Take 1 tablet by mouth every 8 (eight) hours as needed for Pain. [facility] ketorolac 10 mg tablet 01-08 00:00: 00 Yes [id number] 10mg Take 1 tablet by mouth every 6 (six) hours as needed for Pain (scale 4-6) or Pain (scale 7-10). [facility] metaxalone (SKELAXIN) 800 mg tablet 01-08 00:00: 00 Yes [id number] 800mg Take 1 tablet by mouth in the morning and 1 tablet at noon and 1 tablet in the evening. [facility] ondansetron 4 mg disintegrat ing tablet 01-08 00:00: 00 Yes [id number] 4mg Take 1 tablet by mouth every 8 (eight) hours as needed for Nausea and Vomiting (N/V). [facility] acetaminoph en (TYLENOL ARTHRITIS PAIN) 650 mg CR tablet 01-08 00:00: 00 Yes [id number] 650mg Take 1 tablet by mouth every 8 (eight) hours as needed for Pain. [facility] ketorolac 10 mg tablet 01-08 00:00: 00 Yes [id number] 10mg Take 1 tablet by mouth every 6 (six) hours as needed for Pain (scale 4-6) or Pain (scale 7-10). [facility] metaxalone (SKELAXIN) 800 mg tablet 01-08 00:00: 00 Yes [id number] 800mg Take 1 tablet by mouth in the morning and 1 tablet at noon and 1 tablet in the evening. [facility] ondansetron 4 mg disintegrat ing tablet 01-08 00:00: 00 Yes [id number] 4mg Take 1 tablet by mouth every 8 (eight) hours as needed for Nausea and Vomiting (N/V). [facility] acetaminoph en (TYLENOL ARTHRITIS PAIN) 650 mg CR tablet 01-08 00:00: 00 Yes [id number] 650mg Take 1 tablet by mouth every 8 (eight) hours as needed for Pain. [facility] ketorolac 10 mg tablet 01-08 00:00: 00 Yes [id number] 10mg Take 1 tablet by mouth every 6 (six) hours as needed for Pain (scale 4-6) or Pain (scale 7-10). [facility] metaxalone (SKELAXIN) 800 mg tablet 01-08 00:00: 00 Yes [id number] 800mg Take 1 tablet by mouth in the morning and 1 tablet at noon and 1 tablet in the evening. [facility] ondansetron 4 mg disintegrat ing tablet 01-08 00:00: 00 Yes [id number] 4mg Take 1 tablet by mouth every 8 (eight) hours as needed for Nausea and Vomiting (N/V). [facility] acetaminoph en (TYLENOL ARTHRITIS PAIN) 650 mg CR tablet 01-08 00:00: 00 Yes [id number] 650mg Take 1 tablet by mouth every 8 (eight) hours as needed for Pain. [facility] ketorolac 10 mg tablet 01-08 00:00: 00 Yes [id number] 10mg Take 1 tablet by mouth every 6 (six) hours as needed for Pain (scale 4-6) or Pain (scale 7-10). [facility] metaxalone (SKELAXIN) 800 mg tablet 01-08 00:00: 00 Yes [id number] 800mg Take 1 tablet by mouth in the morning and 1 tablet at noon and 1 tablet in the evening. [facility] ondansetron 4 mg disintegrat ing tablet 01-08 00:00: 00 Yes [id number] 4mg Take 1 tablet by mouth every 8 (eight) hours as needed for Nausea and Vomiting (N/V). [facility] acetaminoph en (TYLENOL ARTHRITIS PAIN) 650 mg CR tablet 01-08 00:00: 00 Yes [id number] 650mg Take 1 tablet by mouth every 8 (eight) hours as needed for Pain. [facility] ketorolac 10 mg tablet 01-08 00:00: 00 Yes [id number] 10mg Take 1 tablet by mouth every 6 (six) hours as needed for Pain (scale 4-6) or Pain (scale 7-10). [facility] metaxalone (SKELAXIN) 800 mg tablet 01-08 00:00: 00 Yes [id number] 800mg Take 1 tablet by mouth in the morning and 1 tablet at noon and 1 tablet in the evening. [facility] acetaminoph en (TYLENOL ARTHRITIS PAIN) 650 mg CR tablet 01-08 00:00: 00 Yes [id number] 650mg Take 1 tablet by mouth every 8 (eight) hours as needed for Pain. [facility] acetaminoph en (TYLENOL ARTHRITIS PAIN) 650 mg CR tablet 01-08 00:00: 00 Yes [id number] 650mg Take 1 tablet by mouth every 8 (eight) hours as needed for Pain. [facility] acetaminoph en (TYLENOL ARTHRITIS PAIN) 650 mg CR tablet 01-08 00:00: 00 Yes [id number] 650mg Take 1 tablet by mouth every 8 (eight) hours as needed for Pain. [facility] acetaminoph en (TYLENOL ARTHRITIS PAIN) 650 mg CR tablet 01-08 00:00: 00 Yes [id number] 650mg Take 1 tablet by mouth every 8 (eight) hours as needed for Pain. [facility] acetaminoph en (TYLENOL ARTHRITIS PAIN) 650 mg CR tablet 01-08 00:00: 00 Yes [id number] 650mg Take 1 tablet by mouth every 8 (eight) hours as needed for Pain. [facility] acetaminoph en (TYLENOL ARTHRITIS PAIN) 650 mg CR tablet 01-08 00:00: 00 Yes [id number] 650mg Take 1 tablet by mouth every 8 (eight) hours as needed for Pain. [facility] acetaminoph en (TYLENOL ARTHRITIS PAIN) 650 mg CR tablet 01-08 00:00: 00 Yes [id number] 650mg Take 1 tablet by mouth every 8 (eight) hours as needed for Pain. [facility] acetaminoph en (TYLENOL ARTHRITIS PAIN) 650 mg CR tablet 01-08 00:00: 00 Yes [id number] 650mg Take 1 tablet by mouth every 8 (eight) hours as needed for Pain. [facility] acetaminoph en (TYLENOL ARTHRITIS PAIN) 650 mg CR tablet 01-08 00:00: 00 Yes [id number] 650mg Take 1 tablet by mouth every 8 (eight) hours as needed for Pain. [facility] acetaminoph en (TYLENOL ARTHRITIS PAIN) 650 mg CR tablet 01-08 00:00: 00 Yes [id number] 650mg Take 1 tablet by mouth every 8 (eight) hours as needed for Pain. [facility] acetaminoph en (TYLENOL ARTHRITIS PAIN) 650 mg CR tablet 01-08 00:00: 00 Yes [id number] 650mg Take 1 tablet by mouth every 8 (eight) hours as needed for Pain. [facility] acetaminoph en (TYLENOL ARTHRITIS PAIN) 650 mg CR tablet 01-08 00:00: 00 Yes [id number] 650mg Take 1 tablet by mouth every 8 (eight) hours as needed for Pain. [facility] acetaminoph en (TYLENOL ARTHRITIS PAIN) 650 mg CR tablet 01-08 00:00: 00 Yes [id number] 650mg Take 1 tablet by mouth every 8 (eight) hours as needed for Pain. [facility] acetaminoph en (TYLENOL ARTHRITIS PAIN) 650 mg CR tablet 01-08 00:00: 00 Yes [id number] 650mg Take 1 tablet by mouth every 8 (eight) hours as needed for Pain. [facility] acetaminoph en (TYLENOL ARTHRITIS PAIN) 650 mg CR tablet 01-08 00:00: 00 Yes [id number] 650mg Take 1 tablet by mouth every 8 (eight) hours as needed for Pain. [facility] acetaminoph en (TYLENOL ARTHRITIS PAIN) 650 mg CR tablet 01-08 00:00: 00 Yes [id number] 650mg Take 1 tablet by mouth every 8 (eight) hours as needed for Pain. [facility] acetaminoph en (TYLENOL ARTHRITIS PAIN) 650 mg CR tablet 01-08 00:00: 00 Yes [id number] 650mg Take 1 tablet by mouth every 8 (eight) hours as needed for Pain. [facility] acetaminoph en (TYLENOL ARTHRITIS PAIN) 650 mg CR tablet 01-08 00:00: 00 04-07 00:00 :00 No [id number] 650mg Take 1 tablet by mouth every 8 (eight) hours as needed for Pain. [facility] ondansetron 4 mg disintegrat ing tablet 01-08 00:00: 00 02-27 00:00 :00 No [id number] 4mg Take 1 tablet by mouth every 8 (eight) hours as needed for Nausea and Vomiting (N/V). [facility] ketorolac 10 mg tablet 01-08 00:00: 00 02-27 00:00 :00 No [id number] 10mg Take 1 tablet by mouth every 6 (six) hours as needed for Pain (scale 4-6) or Pain (scale 7-10). [facility] metaxalone (SKELAXIN) 800 mg tablet 01-08 00:00: 00 02-27 00:00 :00 No [id number] 800mg Take 1 tablet by mouth in the morning and 1 tablet at noon and 1 tablet in the evening. [facility] ondansetron 4 mg disintegrat ing tablet 01-08 00:00: 00 02-27 00:00 :00 No [id number] 4mg Take 1 tablet by mouth every 8 (eight) hours as needed for Nausea and Vomiting (N/V). [facility] ketorolac 10 mg tablet 01-08 00:00: 00 02-27 00:00 :00 No [id number] 10mg Take 1 tablet by mouth every 6 (six) hours as needed for Pain (scale 4-6) or Pain (scale 7-10). [facility] metaxalone (SKELAXIN) 800 mg tablet 01-08 00:00: 00 02-27 00:00 :00 No [id number] 800mg Take 1 tablet by mouth in the morning and 1 tablet at noon and 1 tablet in the evening. [facility] ondansetron 4 mg disintegrat ing tablet 01-08 00:00: 00 02-27 00:00 :00 No [id number] 4mg Take 1 tablet by mouth every 8 (eight) hours as needed for Nausea and Vomiting (N/V). [facility] ketorolac 10 mg tablet 01-08 00:00: 00 02-27 00:00 :00 No [id number] 10mg Take 1 tablet by mouth every 6 (six) hours as needed for Pain (scale 4-6) or Pain (scale 7-10). [facility] metaxalone (SKELAXIN) 800 mg tablet 01-08 00:00: 00 02-27 00:00 :00 No [id number] 800mg Take 1 tablet by mouth in the morning and 1 tablet at noon and 1 tablet in the evening. [facility] ondansetron 4 mg disintegrat ing tablet 01-08 00:00: 00 02-27 00:00 :00 No [id number] 4mg Take 1 tablet by mouth every 8 (eight) hours as needed for Nausea and Vomiting (N/V). [facility] ketorolac 10 mg tablet 01-08 00:00: 00 02-27 00:00 :00 No [id number] 10mg Take 1 tablet by mouth every 6 (six) hours as needed for Pain (scale 4-6) or Pain (scale 7-10). [facility] metaxalone (SKELAXIN) 800 mg tablet 01-08 00:00: 00 02-27 00:00 :00 No [id number] 800mg Take 1 tablet by mouth in the morning and 1 tablet at noon and 1 tablet in the evening. [facility] metroNIDAZO LE 500 mg tablet 808 00:00: 00 Yes 500mg Take 1 tablet by mouth every 12 (twelve) hours. [facility] metroNIDAZO LE 500 mg tablet 2-0 8-08 00:00: 00 Yes 500mg Take 1 tablet by mouth every 12 (twelve) hours. [facility] metroNIDAZO LE 500 mg tablet 2021-0 8-08 00:00: 00 Yes 500mg Take 1 tablet by mouth every 12 (twelve) hours. [facility] metroNIDAZO LE 500 mg tablet 2-0 8-08 00:00: 00 Yes 500mg Take 1 tablet by mouth every 12 (twelve) hours. [facility] metroNIDAZO LE 500 mg tablet 2-0 8-08 00:00: 00 Yes 500mg Take 1 tablet by mouth every 12 (twelve) hours. [facility] metroNIDAZO LE 500 mg tablet 2021-0 8-08 00:00: 00 Yes 500mg Take 1 tablet by mouth every 12 (twelve) hours. [facility] metroNIDAZO LE 500 mg tablet 2021-0 8-08 00:00: 00 Yes 500mg Take 1 tablet by mouth every 12 (twelve) hours. [facility] metroNIDAZO LE 500 mg tablet 2021-0 8-08 00:00: 00 Yes 500mg Take 1 tablet by mouth every 12 (twelve) hours. [facility] metroNIDAZO LE 500 mg tablet 2021-0 8-08 00:00: 00 Yes 500mg Take 1 tablet by mouth every 12 (twelve) hours. [facility] metroNIDAZO LE 500 mg tablet 2-0 8-08 00:00: 00 Yes 500mg Take 1 tablet by mouth every 12 (twelve) hours. [facility] metroNIDAZO LE 500 mg tablet 2-0 8-08 00:00: 00 Yes 500mg Take 1 tablet by mouth every 12 (twelve) hours. [facility] metroNIDAZO LE 500 mg tablet 2-0 8-08 00:00: 00 02-27 00:00 :00 No 500mg Take 1 tablet by mouth every 12 (twelve) hours. [facility] metroNIDAZO LE 500 mg tablet 2-0 8-08 00:00: 00 18 00:00 :00 No 500mg Take 1 tablet by mouth every 12 (twelve) hours. [facility] metroNIDAZO LE 500 mg tablet 8-08 00:00: 00 02-27 00:00 :00 No 500mg Take 1 tablet by mouth every 12 (twelve) hours. [facility] metroNIDAZO LE 500 mg tablet -08 00:00: 00 02-27 00:00 :00 No 500mg Take 1 tablet by mouth every 12 (twelve) hours. [facility] trazodone/d ietary supp. no.8 (TRAZAMINE ORAL) 12-12 15:08: 46 12-12 00:00 :00 No Take by mouth. [facility] diphenhydrA MINE 25 mg capsule 12-12 13:03: 04 Yes 25mg Take 25 mg by mouth every 6 (six) hours as needed for Allergies. [facility] carbamazepi ne (TEGRETOL ORAL) 12-12 13:03: 04 Yes Take by mouth. [facility] citalopram hydrobromid e (CITALOPRAM ORAL) 12-12 13:03: 04 Yes Take by mouth. [facility] ALBUTEROL INHALE 12-12 13:03: 04 Yes [facility] diphenhydrA MINE 25 mg capsule 12-12 13:03: 04 Yes 25mg Take 25 mg by mouth every 6 (six) hours as needed for Allergies. [facility] carbamazepi ne (TEGRETOL ORAL) 12-12 13:03: 04 Yes Take by mouth. [facility] citalopram hydrobromid e (CITALOPRAM ORAL) 12-12 13:03: 04 Yes Take by mouth. [facility] ALBUTEROL INHALE 12-12 13:03: 04 Yes [facility] diphenhydrA MINE 25 mg capsule 12-12 13:03: 04 Yes 25mg Take 25 mg by mouth every 6 (six) hours as needed for Allergies. [facility] carbamazepi ne (TEGRETOL ORAL) 12-12 13:03: 04 Yes Take by mouth. [facility] citalopram hydrobromid e (CITALOPRAM ORAL) 12-12 13:03: 04 Yes Take by mouth. [facility] ALBUTEROL INHALE 12-12 13:03: 04 Yes [facility] diphenhydrA MINE 25 mg capsule 12-12 13:03: 04 Yes 25mg Take 25 mg by mouth every 6 (six) hours as needed for Allergies. [facility] carbamazepi ne (TEGRETOL ORAL) 12-12 13:03: 04 Yes Take by mouth. [facility] citalopram hydrobromid e (CITALOPRAM ORAL) 12-12 13:03: 04 Yes Take by mouth. [facility] ALBUTEROL INHALE 12-12 13:03: 04 Yes [facility] diphenhydrA MINE 25 mg capsule 12-12 13:03: 04 Yes 25mg Take 25 mg by mouth every 6 (six) hours as needed for Allergies. [facility] carbamazepi ne (TEGRETOL ORAL) 12-12 13:03: 04 Yes Take by mouth. [facility] citalopram hydrobromid e (CITALOPRAM ORAL) 12-12 13:03: 04 Yes Take by mouth. [facility] ALBUTEROL INHALE 12-12 13:03: 04 Yes [facility] diphenhydrA MINE 25 mg capsule 12-12 13:03: 04 Yes 25mg Take 25 mg by mouth every 6 (six) hours as needed for Allergies. [facility] carbamazepi ne (TEGRETOL ORAL) 12-12 13:03: 04 Yes Take by mouth. [facility] citalopram hydrobromid e (CITALOPRAM ORAL) 12-12 13:03: 04 Yes Take by mouth. [facility] ALBUTEROL INHALE 12-12 13:03: 04 Yes [facility] diphenhydrA MINE 25 mg capsule 12-12 13:03: 04 Yes 25mg Take 25 mg by mouth every 6 (six) hours as needed for Allergies. [facility] 12-12 13:03: 04 Yes Take by mouth. [facility] hydrobromid e (CITALOPRAM ORAL) 12-12 13:03: 04 Yes Take by mouth. [facility] 12-12 13:03: 04 Yes [facility]INE 25 mg capsule 12-12 13:03: 04 Yes 25mg Take 25 mg by mouth every 6 (six) hours as needed for Allergies. [facility] carbamazepi ne (TEGRETOL ORAL) 12-12 13:03: 04 Yes Take by mouth. [facility] citalopram hydrobromid e (CITALOPRAM ORAL) 12-12 13:03: 04 Yes Take by mouth. [facility] ALBUTEROL INHALE 12-12 13:03: 04 Yes [facility] diphenhydrA MINE 25 mg capsule 12-12 13:03: 04 Yes 25mg Take 25 mg by mouth every 6 (six) hours as needed for Allergies. [facility] carbamazepi ne (TEGRETOL ORAL) 12-12 13:03: 04 Yes Take by mouth. [facility] citalopram hydrobromid e (CITALOPRAM ORAL) 12-12 13:03: 04 Yes Take by mouth. [facility] ALBUTEROL INHALE 12-12 13:03: 04 Yes [facility] 25 mg capsule 12-12 13:03: 04 Yes 25mg Take 25 mg by mouth every 6 (six) hours as needed for Allergies. [facility] carbamazepi ne (TEGRETOL ORAL) 0 12-12 13:03: 04 Yes Take by mouth. [facility] citalopram hydrobromid e (CITALOPRAM ORAL) 12-12 13:03: 04 Yes Take by mouth. [facility] ALBUTEROL INHALE 0 12-12 13:03: 04 Yes [facility] diphenhydrA MINE 25 mg capsule 12-12 13:03: 04 Yes 25mg Take 25 mg by mouth every 6 (six) hours as needed for Allergies. [facility] carbamazepi ne (TEGRETOL ORAL) 12-12 13:03: 04 Yes Take by mouth. [facility] citalopram hydrobromid e (CITALOPRAM ORAL) 12-12 13:03: 04 Yes Take by mouth. [facility] ALBUTEROL INHALE 0 8 13:03: 04 Yes [facility] ALBUTEROL INHALE 2021-0 8 13:03: 04 Yes [facility] ALBUTEROL INHALE 2021-0 8 13:03: 04 Yes [facility] ALBUTEROL INHALE 2021-0 8 13:03: 04 Yes [facility] ALBUTEROL INHALE 2021-0 8 13:03: 04 Yes [facility] ALBUTEROL INHALE 2021-0 8 13:03: 04 Yes [facility] ALBUTEROL INHALE 2021-0 8 13:03: 04 Yes [facility] ALBUTEROL INHALE 2021-0 8 13:03: 04 Yes [facility] ALBUTEROL INHALE 2021-0 8 13:03: 04 Yes [facility] ALBUTEROL INHALE 0 8- 13:03: 04 Yes [facility] ALBUTEROL INHALE 2021-0 8- 13:03: 04 Yes [facility] ALBUTEROL INHALE 2021-0 12-12 13:03: 04 Yes [facility] ALBUTEROL INHALE 2021-0 12-12 13:03: 04 Yes [facility] ALBUTEROL INHALE 0 12-12 13:03: 04 Yes [facility] ALBUTEROL INHALE 2021-0 12-12 13:03: 04 Yes [facility] traZODone 50 mg tablet 2021-0 12-12 00:00: 00 Yes [id number] 50mg Take 1 tablet by mouth at bedtime. [facility] SERTraline (ZOLOFT) 50 mg tablet 2021-0 12-12 00:00: 00 Yes [id number] 50mg Take 1 tablet by mouth in the morning. [facility] traZODone 50 mg tablet 2021-0 12-12 00:00: 00 Yes [id number] 50mg Take 1 tablet by mouth at bedtime. [facility] SERTraline (ZOLOFT) 50 mg tablet 2021-0 12-12 00:00: 00 Yes [id number] 50mg Take 1 tablet by mouth in the morning. [facility] traZODone 50 mg tablet 2021-0 12-12 00:00: 00 Yes [id number] 50mg Take 1 tablet by mouth at bedtime. [facility] SERTraline (ZOLOFT) 50 mg tablet 2021-0 12-12 00:00: 00 Yes [id number] 50mg Take 1 tablet by mouth in the morning. [facility] traZODone 50 mg tablet 2021-0 12-12 00:00: 00 Yes [id number] 50mg Take 1 tablet by mouth at bedtime. [facility] SERTraline (ZOLOFT) 50 mg tablet 2021-0 12-12 00:00: 00 Yes [id number] 50mg Take 1 tablet by mouth in the morning. [facility] traZODone 50 mg tablet 2021-0 - 00:00: 00 Yes [id number] 50mg Take 1 tablet by mouth at bedtime. [facility] SERTraline (ZOLOFT) 50 mg tablet 0 12-12 00:00: 00 Yes [id number] 50mg Take 1 tablet by mouth in the morning. [facility] traZODone 50 mg tablet 0 12-12 00:00: 00 Yes [id number] 50mg Take 1 tablet by mouth at bedtime. [facility] SERTraline (ZOLOFT) 50 mg tablet 0 12-12 00:00: 00 Yes [id number] 50mg Take 1 tablet by mouth in the morning. [facility] traZODone 50 mg tablet 0 12-12 00:00: 00 Yes [id number] 50mg Take 1 tablet by mouth at bedtime. [facility] SERTraline (ZOLOFT) 50 mg tablet 0 12-12 00:00: 00 Yes [id number] 50mg Take 1 tablet by mouth in the morning. [facility] traZODone 50 mg tablet 0 12-12 00:00: 00 Yes [id number] 50mg Take 1 tablet by mouth at bedtime. [facility] SERTraline (ZOLOFT) 50 mg tablet 0 12-12 00:00: 00 Yes [id number] 50mg Take 1 tablet by mouth in the morning. [facility] traZODone 50 mg tablet 0 12-12 00:00: 00 Yes [id number] 50mg Take 1 tablet by mouth at bedtime. [facility] SERTraline (ZOLOFT) 50 mg tablet 0 12-12 00:00: 00 Yes [id number] 50mg Take 1 tablet by mouth in the morning. [facility] traZODone 50 mg tablet 2021-0 12-12 00:00: 00 Yes [id number] 50mg Take 1 tablet by mouth at bedtime. [facility] SERTraline (ZOLOFT) 50 mg tablet 0 12-12 00:00: 00 Yes [id number] 50mg Take 1 tablet by mouth in the morning. [facility] traZODone 50 mg tablet 2021-0 12-12 00:00: 00 Yes [id number] 50mg Take 1 tablet by mouth at bedtime. [facility] SERTraline (ZOLOFT) 50 mg tablet 0 8-02 00:00: 00 Yes [id number] 50mg Take 1 tablet by mouth in the morning. [facility] traZODone 50 mg tablet 2021-0 8-02 00:00: 00 02-27 00:00 :00 No [id number] 50mg Take 1 tablet by mouth at bedtime. [facility] SERTraline (ZOLOFT) 50 mg tablet 0 8- 00:00: 00 02-27 00:00 :00 No [id number] 50mg Take 1 tablet by mouth in the morning. [facility] traZODone 50 mg tablet 8- 00:00: 00 02-27 00:00 :00 No [id number] 50mg Take 1 tablet by mouth at bedtime. [facility] SERTraline (ZOLOFT) 50 mg tablet 0 8- 00:00: 00 02-27 00:00 :00 No [id number] 50mg Take 1 tablet by mouth in the morning. [facility] traZODone 50 mg tablet 0 8- 00:00: 00 02-27 00:00 :00 No [id number] 50mg Take 1 tablet by mouth at bedtime. [facility] SERTraline (ZOLOFT) 50 mg tablet 0 8- 00:00: 00 02-27 00:00 :00 No [id number] 50mg Take 1 tablet by mouth in the morning. [facility] traZODone 50 mg tablet 2021-0 8-02 00:00: 00 02-27 00:00 :00 No [id number] 50mg Take 1 tablet by mouth at bedtime. [facility] SERTraline (ZOLOFT) 50 mg tablet 2021-0 8-02 00:00: 00 02-27 00:00 :00 No [id number] 50mg Take 1 tablet by mouth in the morning. [facility] sulfamethox azole-trime thoprim (BACTRIM DS) 800-160 mg per tablet 8 00:00: 00 12-16 04:59 :00 No [id number] 1{tbl} Take 1 tablet by mouth in the morning and 1 tablet in the evening. Do all this for 3 days. [facility] ibuprofen 600 mg tablet 0 7-15 00:00: 00 Yes [id number] 600mg Take 1 tablet by mouth every 6 (six) hours as needed for Pain (scale 4-6). [facility] ibuprofen 600 mg tablet 0 -15 00:00: 00 Yes [id number] 600mg Take 1 tablet by mouth every 6 (six) hours as needed for Pain (scale 4-6). [facility] ibuprofen 600 mg tablet 0 -15 00:00: 00 Yes [id number] 600mg Take 1 tablet by mouth every 6 (six) hours as needed for Pain (scale 4-6). [facility] ibuprofen 600 mg tablet 0 15 00:00: 00 Yes [id number] 600mg Take 1 tablet by mouth every 6 (six) hours as needed for Pain (scale 4-6). [facility] ibuprofen 600 mg tablet 0 15 00:00: 00 Yes [id number] 600mg Take 1 tablet by mouth every 6 (six) hours as needed for Pain (scale 4-6). [facility] ibuprofen 600 mg tablet 0 7-15 00:00: 00 Yes [id number] 600mg Take 1 tablet by mouth every 6 (six) hours as needed for Pain (scale 4-6). [facility] ibuprofen 600 mg tablet 0 7-15 00:00: 00 Yes [id number] 600mg Take 1 tablet by mouth every 6 (six) hours as needed for Pain (scale 4-6). [facility] ibuprofen 600 mg tablet 0 7-15 00:00: 00 Yes [id number] 600mg Take 1 tablet by mouth every 6 (six) hours as needed for Pain (scale 4-6). [facility] ibuprofen 600 mg tablet 11-24 00:00: 00 Yes [id number] 600mg Take 1 tablet by mouth every 6 (six) hours as needed for Pain (scale 4-6). [facility] ibuprofen 600 mg tablet 11-24 00:00: 00 Yes [id number] 600mg Take 1 tablet by mouth every 6 (six) hours as needed for Pain (scale 4-6). [facility] ibuprofen 600 mg tablet 11-24 00:00: 00 Yes [id number] 600mg Take 1 tablet by mouth every 6 (six) hours as needed for Pain (scale 4-6). [facility] ibuprofen 600 mg tablet 11-24 00:00: 00 02-27 00:00 :00 No [id number] 600mg Take 1 tablet by mouth every 6 (six) hours as needed for Pain (scale 4-6). [facility] ibuprofen 600 mg tablet 11-24 00:00: 00 02-27 00:00 :00 No [id number] 600mg Take 1 tablet by mouth every 6 (six) hours as needed for Pain (scale 4-6). [facility] ibuprofen 600 mg tablet 11-24 00:00: 00 02-27 00:00 :00 No [id number] 600mg Take 1 tablet by mouth every 6 (six) hours as needed for Pain (scale 4-6). [facility] ibuprofen 600 mg tablet 11-24 00:00: 00 02-27 00:00 :00 No [id number] 600mg Take 1 tablet by mouth every 6 (six) hours as needed for Pain (scale 4-6). [facility] ibuprofen 600 mg tablet 11-24 00:00: 00 02-27 00:00 :00 No [id number] 600mg Take 1 tablet by mouth every 6 (six) hours as needed for Pain (scale 4-6). [facility] acetaminoph en-codeine 300-30 mg tablet 11-24 00:00: 00 12-12 00:00 :00 No [id number] 1{tbl} Take 1 tablet by mouth every 4 (four) hours as needed for Pain (scale 4-6). Indication s: acute pain [facility] acetaminoph en-codeine 300-30 mg tablet 11-24 00:00: 00 12-12 00:00 :00 No [id number] 1{tbl} Take 1 tablet by mouth every 4 (four) hours as needed for Pain (scale 4-6). Indication s: acute pain [facility] bromphenira mine-pseudo ephedrine-D M (BROMFED DM) 2-30-10 mg/5 mL syrup 11-18 00:00: 00 Yes [id number] 5mL Take 5 mL by mouth 4 (four) times daily as needed for Congestion /Allergies or Cough. [facility] naproxen 500 mg tablet 11-18 00:00: 00 Yes [id number] 500mg Take 1 tablet by mouth every 8 (eight) hours as needed for Pain (scale 4-6). [facility] cyclobenzap rine 10 mg tablet 11-18 00:00: 00 Yes [id number] 10mg Take 1 tablet by mouth at bedtime as needed for Muscle Spasms. [facility] bromphenira mine-pseudo ephedrine-D M (BROMFED DM) 2-30-10 mg/5 mL syrup 11-18 00:00: 00 Yes [id number] 5mL Take 5 mL by mouth 4 (four) times daily as needed for Congestion /Allergies or Cough. [facility] naproxen 500 mg tablet 11-18 00:00: 00 Yes [id number] 500mg Take 1 tablet by mouth every 8 (eight) hours as needed for Pain (scale 4-6). [facility] cyclobenzap rine 10 mg tablet 11-18 00:00: 00 Yes [id number] 10mg Take 1 tablet by mouth at bedtime as needed for Muscle Spasms. [facility] bromphenira mine-pseudo ephedrine-D M (BROMFED DM) 2-30-10 mg/5 mL syrup 0 11-18 00:00: 00 Yes [id number] 5mL Take 5 mL by mouth 4 (four) times daily as needed for Congestion /Allergies or Cough. [facility] naproxen 500 mg tablet 11-18 00:00: 00 Yes [id number] 500mg Take 1 tablet by mouth every 8 (eight) hours as needed for Pain (scale 4-6). [facility] cyclobenzap rine 10 mg tablet 11-18 00:00: 00 Yes [id number] 10mg Take 1 tablet by mouth at bedtime as needed for Muscle Spasms. [facility] bromphenira mine-pseudo ephedrine-D M (BROMFED DM) 2-30-10 mg/5 mL syrup 11-18 00:00: 00 Yes [id number] 5mL Take 5 mL by mouth 4 (four) times daily as needed for Congestion /Allergies or Cough. [facility] naproxen 500 mg tablet 11-18 00:00: 00 Yes [id number] 500mg Take 1 tablet by mouth every 8 (eight) hours as needed for Pain (scale 4-6). [facility] cyclobenzap rine 10 mg tablet 11-18 00:00: 00 Yes [id number] 10mg Take 1 tablet by mouth at bedtime as needed for Muscle Spasms. [facility] bromphenira mine-pseudo ephedrine-D M (BROMFED DM) 2-30-10 mg/5 mL syrup 11-18 00:00: 00 Yes [id number] 5mL Take 5 mL by mouth 4 (four) times daily as needed for Congestion /Allergies or Cough. [facility] naproxen 500 mg tablet 11-18 00:00: 00 Yes [id number] 500mg Take 1 tablet by mouth every 8 (eight) hours as needed for Pain (scale 4-6). [facility] cyclobenzap rine 10 mg tablet 11-18 00:00: 00 Yes [id number] 10mg Take 1 tablet by mouth at bedtime as needed for Muscle Spasms. [facility] bromphenira mine-pseudo ephedrine-D M (BROMFED DM) 2-30-10 mg/5 mL syrup 0 11-18 00:00: 00 Yes [id number] 5mL Take 5 mL by mouth 4 (four) times daily as needed for Congestion /Allergies or Cough. [facility] naproxen 500 mg tablet 2021-0 11-18 00:00: 00 Yes [id number] 500mg Take 1 tablet by mouth every 8 (eight) hours as needed for Pain (scale 4-6). [facility] cyclobenzap rine 10 mg tablet 0 11-18 00:00: 00 Yes [id number] 10mg Take 1 tablet by mouth at bedtime as needed for Muscle Spasms. [facility] bromphenira mine-pseudo ephedrine-D M (BROMFED DM) 2-30-10 mg/5 mL syrup 0 11-18 00:00: 00 Yes [id number] 5mL Take 5 mL by mouth 4 (four) times daily as needed for Congestion /Allergies or Cough. [facility] naproxen 500 mg tablet 0 11-18 00:00: 00 Yes [id number] 500mg Take 1 tablet by mouth every 8 (eight) hours as needed for Pain (scale 4-6). [facility] cyclobenzap rine 10 mg tablet 2021-0 11-18 00:00: 00 Yes [id number] 10mg Take 1 tablet by mouth at bedtime as needed for Muscle Spasms. [facility] bromphenira mine-pseudo ephedrine-D M (BROMFED DM) 2-30-10 mg/5 mL syrup 0 11-18 00:00: 00 Yes [id number] 5mL Take 5 mL by mouth 4 (four) times daily as needed for Congestion /Allergies or Cough. [facility] naproxen 500 mg tablet 0 11-18 00:00: 00 Yes [id number] 500mg Take 1 tablet by mouth every 8 (eight) hours as needed for Pain (scale 4-6). [facility] cyclobenzap rine 10 mg tablet 11-18 00:00: 00 Yes [id number] 10mg Take 1 tablet by mouth at bedtime as needed for Muscle Spasms. [facility] bromphenira mine-pseudo ephedrine-D M (BROMFED DM) 2-30-10 mg/5 mL syrup 11-18 00:00: 00 Yes [id number] 5mL Take 5 mL by mouth 4 (four) times daily as needed for Congestion /Allergies or Cough. [facility] naproxen 500 mg tablet 11-18 00:00: 00 Yes [id number] 500mg Take 1 tablet by mouth every 8 (eight) hours as needed for Pain (scale 4-6). [facility] cyclobenzap rine 10 mg tablet 11-18 00:00: 00 Yes [id number] 10mg Take 1 tablet by mouth at bedtime as needed for Muscle Spasms. [facility] bromphenira mine-pseudo ephedrine-D M (BROMFED DM) 2-30-10 mg/5 mL syrup 11-18 00:00: 00 Yes [id number] 5mL Take 5 mL by mouth 4 (four) times daily as needed for Congestion /Allergies or Cough. [facility] naproxen 500 mg tablet 11-18 00:00: 00 Yes [id number] 500mg Take 1 tablet by mouth every 8 (eight) hours as needed for Pain (scale 4-6). [facility] cyclobenzap rine 10 mg tablet 11-18 00:00: 00 Yes [id number] 10mg Take 1 tablet by mouth at bedtime as needed for Muscle Spasms. [facility] bromphenira mine-pseudo ephedrine-D M (BROMFED DM) 2-30-10 mg/5 mL syrup 11-18 00:00: 00 Yes [id number] 5mL Take 5 mL by mouth 4 (four) times daily as needed for Congestion /Allergies or Cough. [facility] naproxen 500 mg tablet 11-18 00:00: 00 Yes [id number] 500mg Take 1 tablet by mouth every 8 (eight) hours as needed for Pain (scale 4-6). [facility] cyclobenzap rine 10 mg tablet 11-18 00:00: 00 Yes [id number] 10mg Take 1 tablet by mouth at bedtime as needed for Muscle Spasms. [facility] bromphenira mine-pseudo ephedrine-D M (BROMFED DM) 2-30-10 mg/5 mL syrup 0 11-18 00:00: 00 Yes [id number] 5mL Take 5 mL by mouth 4 (four) times daily as needed for Congestion /Allergies or Cough. [facility] bromphenira mine-pseudo ephedrine-D M (BROMFED DM) 2-30-10 mg/5 mL syrup 0 11-18 00:00: 00 Yes [id number] 5mL Take 5 mL by mouth 4 (four) times daily as needed for Congestion /Allergies or Cough. [facility] bromphenira mine-pseudo ephedrine-D M (BROMFED DM) 2-30-10 mg/5 mL syrup 0 11-18 00:00: 00 Yes [id number] 5mL Take 5 mL by mouth 4 (four) times daily as needed for Congestion /Allergies or Cough. [facility] bromphenira mine-pseudo ephedrine-D M (BROMFED DM) 2-30-10 mg/5 mL syrup 2021-0 11-18 00:00: 00 Yes [id number] 5mL Take 5 mL by mouth 4 (four) times daily as needed for Congestion /Allergies or Cough. [facility] bromphenira mine-pseudo ephedrine-D M (BROMFED DM) 2-30-10 mg/5 mL syrup 0 11-18 00:00: 00 Yes [id number] 5mL Take 5 mL by mouth 4 (four) times daily as needed for Congestion /Allergies or Cough. [facility] bromphenira mine-pseudo ephedrine-D M (BROMFED DM) 2-30-10 mg/5 mL syrup 0 11-18 00:00: 00 Yes [id number] 5mL Take 5 mL by mouth 4 (four) times daily as needed for Congestion /Allergies or Cough. [facility] bromphenira mine-pseudo ephedrine-D M (BROMFED DM) 2-30-10 mg/5 mL syrup 2022-0 7- 00:00: 00 Yes [id number] 5mL Take 5 mL by mouth 4 (four) times daily as needed for Congestion /Allergies or Cough. [facility] bromphenira mine-pseudo ephedrine-D M (BROMFED DM) 2-30-10 mg/5 mL syrup 2022-0 7- 00:00: 00 Yes [id number] 5mL Take 5 mL by mouth 4 (four) times daily as needed for Congestion /Allergies or Cough. [facility] bromphenira mine-pseudo ephedrine-D M (BROMFED DM) 2-30-10 mg/5 mL syrup 2022-0 7- 00:00: 00 Yes [id number] 5mL Take 5 mL by mouth 4 (four) times daily as needed for Congestion /Allergies or Cough. [facility] bromphenira mine-pseudo ephedrine-D M (BROMFED DM) 2-30-10 mg/5 mL syrup 2-0 7 00:00: 00 Yes [id number] 5mL Take 5 mL by mouth 4 (four) times daily as needed for Congestion /Allergies or Cough. [facility] bromphenira mine-pseudo ephedrine-D M (BROMFED DM) 2-30-10 mg/5 mL syrup 2022-0 7 00:00: 00 Yes [id number] 5mL Take 5 mL by mouth 4 (four) times daily as needed for Congestion /Allergies or Cough. [facility] bromphenira mine-pseudo ephedrine-D M (BROMFED DM) 2-30-10 mg/5 mL syrup 2022-0 7- 00:00: 00 Yes [id number] 5mL Take 5 mL by mouth 4 (four) times daily as needed for Congestion /Allergies or Cough. [facility] bromphenira mine-pseudo ephedrine-D M (BROMFED DM) 2-30-10 mg/5 mL syrup 2022-0 7- 00:00: 00 Yes [id number] 5mL Take 5 mL by mouth 4 (four) times daily as needed for Congestion /Allergies or Cough. [facility] bromphenira mine-pseudo ephedrine-D M (BROMFED DM) 2-30-10 mg/5 mL syrup 0 11-18 00:00: 00 Yes [id number] 5mL Take 5 mL by mouth 4 (four) times daily as needed for Congestion /Allergies or Cough. [facility] bromphenira mine-pseudo ephedrine-D M (BROMFED DM) 2-30-10 mg/5 mL syrup 0 11-18 00:00: 00 03-24 00:00 :00 No [id number] 5mL Take 5 mL by mouth 4 (four) times daily as needed for Congestion /Allergies or Cough. [facility] bromphenira mine-pseudo ephedrine-D M (BROMFED DM) 2-30-10 mg/5 mL syrup 0 11-18 00:00: 00 03-24 00:00 :00 No [id number] 5mL Take 5 mL by mouth 4 (four) times daily as needed for Congestion /Allergies or Cough. [facility] naproxen 500 mg tablet 11-18 00:00: 00 02-27 00:00 :00 No [id number] 500mg Take 1 tablet by mouth every 8 (eight) hours as needed for Pain (scale 4-6). [facility] cyclobenzap rine 10 mg tablet 11-18 00:00: 00 02-27 00:00 :00 No [id number] 10mg Take 1 tablet by mouth at bedtime as needed for Muscle Spasms. [facility] naproxen 500 mg tablet 11-18 00:00: 00 02-27 00:00 :00 No [id number] 500mg Take 1 tablet by mouth every 8 (eight) hours as needed for Pain (scale 4-6). [facility] cyclobenzap rine 10 mg tablet 11-18 00:00: 00 02-27 00:00 :00 No [id number] 10mg Take 1 tablet by mouth at bedtime as needed for Muscle Spasms. [facility] naproxen 500 mg tablet 11-18 00:00: 00 02-27 00:00 :00 No [id number] 500mg Take 1 tablet by mouth every 8 (eight) hours as needed for Pain (scale 4-6). [facility] cyclobenzap rine 10 mg tablet 11-18 00:00: 00 02-27 00:00 :00 No [id number] 10mg Take 1 tablet by mouth at bedtime as needed for Muscle Spasms. [facility] naproxen 500 mg tablet 11-18 00:00: 00 02-27 00:00 :00 No [id number] 500mg Take 1 tablet by mouth every 8 (eight) hours as needed for Pain (scale 4-6). [facility] cyclobenzap rine 10 mg tablet 11-18 00:00: 00 02-27 00:00 :00 No [id number] 10mg Take 1 tablet by mouth at bedtime as needed for Muscle Spasms. [facility] naproxen 500 mg tablet 11-18 00:00: 00 02-27 00:00 :00 No [id number] 500mg Take 1 tablet by mouth every 8 (eight) hours as needed for Pain (scale 4-6). [facility] cyclobenzap rine 10 mg tablet 11-18 00:00: 00 02-27 00:00 :00 No [id number] 10mg Take 1 tablet by mouth at bedtime as needed for Muscle Spasms. [facility] ibuprofen 100 mg/5 mL oral suspension 10-25 00:00: 00 Yes [id number] 605mg Take 30.25 mL by mouth every 6 (six) hours as needed for Pain (scale 4-6) or Temp > 38.5 C. [facility] ibuprofen 100 mg/5 mL oral suspension 10-25 00:00: 00 Yes [id number] 605mg Take 30.25 mL by mouth every 6 (six) hours as needed for Pain (scale 4-6) or Temp > 38.5 C. [facility] ibuprofen 100 mg/5 mL oral suspension 10-25 00:00: 00 Yes [id number] 605mg Take 30.25 mL by mouth every 6 (six) hours as needed for Pain (scale 4-6) or Temp > 38.5 C. [facility] ibuprofen 100 mg/5 mL oral suspension 10-25 00:00: 00 Yes [id number] 605mg Take 30.25 mL by mouth every 6 (six) hours as needed for Pain (scale 4-6) or Temp > 38.5 C. [facility] ibuprofen 100 mg/5 mL oral suspension 10-25 00:00: 00 Yes [id number] 605mg Take 30.25 mL by mouth every 6 (six) hours as needed for Pain (scale 4-6) or Temp > 38.5 C. [facility] ibuprofen 100 mg/5 mL oral suspension 10-25 00:00: 00 Yes [id number] 605mg Take 30.25 mL by mouth every 6 (six) hours as needed for Pain (scale 4-6) or Temp > 38.5 C. [facility] ibuprofen 100 mg/5 mL oral suspension 10-25 00:00: 00 Yes [id number] 605mg Take 30.25 mL by mouth every 6 (six) hours as needed for Pain (scale 4-6) or Temp > 38.5 C. [facility] ibuprofen 100 mg/5 mL oral suspension 10-25 00:00: 00 Yes [id number] 605mg Take 30.25 mL by mouth every 6 (six) hours as needed for Pain (scale 4-6) or Temp > 38.5 C. [facility] ibuprofen 100 mg/5 mL oral suspension 10-25 00:00: 00 Yes [id number] 605mg Take 30.25 mL by mouth every 6 (six) hours as needed for Pain (scale 4-6) or Temp > 38.5 C. [facility] ibuprofen 100 mg/5 mL oral suspension 10-25 00:00: 00 Yes [id number] 605mg Take 30.25 mL by mouth every 6 (six) hours as needed for Pain (scale 4-6) or Temp > 38.5 C. [facility] ibuprofen 100 mg/5 mL oral suspension 10-25 00:00: 00 Yes [id number] 605mg Take 30.25 mL by mouth every 6 (six) hours as needed for Pain (scale 4-6) or Temp > 38.5 C. [facility] ibuprofen 100 mg/5 mL oral suspension 10-25 00:00: 00 02-27 00:00 :00 No [id number] 605mg Take 30.25 mL by mouth every 6 (six) hours as needed for Pain (scale 4-6) or Temp > 38.5 C. [facility] ibuprofen 100 mg/5 mL oral suspension 10-25 00:00: 00 02-27 00:00 :00 No [id number] 605mg Take 30.25 mL by mouth every 6 (six) hours as needed for Pain (scale 4-6) or Temp > 38.5 C. [facility] ibuprofen 100 mg/5 mL oral suspension 10-25 00:00: 00 02-27 00:00 :00 No [id number] 605mg Take 30.25 mL by mouth every 6 (six) hours as needed for Pain (scale 4-6) or Temp > 38.5 C. [facility] ibuprofen 100 mg/5 mL oral suspension 10-25 00:00: 00 02-27 00:00 :00 No [id number] 605mg Take 30.25 mL by mouth every 6 (six) hours as needed for Pain (scale 4-6) or Temp > 38.5 C. [facility] ibuprofen 100 mg/5 mL oral suspension 10-25 00:00: 00 02-27 00:00 :00 No [id number] 605mg Take 30.25 mL by mouth every 6 (six) hours as needed for Pain (scale 4-6) or Temp > 38.5 C[facility] [facility] acetaminoph en 160 mg/5 mL liquid 2-0 6-15 00:00: 00 12-12 00:00 :00 No [id number] 608mg Take 19 mL by mouth every 6 (six) hours as needed for Fever. [facility] acetaminoph en 160 mg/5 mL liquid 2-0 6-15 00:00: 00 12-12 00:00 :00 No [id number] 608mg Take 19 mL by mouth every 6 (six) hours as needed for Fever. [facility] DULoxetine 60 mg capsule 2-0 -27 00:00: 00 Yes [facility] DULoxetine 60 mg capsule 2-0 27 00:00: 00 Yes [facility] DULoxetine 60 mg capsule 2-0 27 00:00: 00 Yes [facility] DULoxetine 60 mg capsule 2-0 27 00:00: 00 Yes [facility] DULoxetine 60 mg capsule 2-0 -27 00:00: 00 Yes [facility] DULoxetine 60 mg capsule 2-0 -27 00:00: 00 Yes [facility] DULoxetine 60 mg capsule 2-0 27 00:00: 00 Yes [facility] DULoxetine 60 mg capsule 2-0 27 00:00: 00 Yes [facility] DULoxetine 60 mg capsule 2-0 27 00:00: 00 Yes [facility] DULoxetine 60 mg capsule 2-0 27 00:00: 00 Yes [facility] DULoxetine 60 mg capsule 2-0 -27 00:00: 00 Yes [facility] DULoxetine 60 mg capsule 2-0 -27 00:00: 00 02-27 00:00 :00 No [facility] DULoxetine 60 mg capsule 2-0 5-27 00:00: 00 02-27 00:00 :00 No [facility] DULoxetine 60 mg capsule 2-0 27 00:00: 00 02-27 00:00 :00 No [facility] DULoxetine 60 mg capsule 10-06 00:00: 00 02-27 00:00 :00 No [facility] traZODone 50 mg tablet 10-06 00:00: 00 12-12 00:00 :00 No [facility] mometasone 50 mcg/actuati on nasal spray 09-28 00:00: 00 Yes [id number] 1{spray } Use 1 [place] in each nostril 2 (two) times daily. [facility] mometasone 50 mcg/actuati on nasal spray 0 09-28 00:00: 00 Yes [id number] 1{spray } Use 1 [place] in each nostril 2 (two) times daily. [facility] mometasone 50 mcg/actuati on nasal spray 0 09-28 00:00: 00 Yes [id number] 1{spray } Use 1 [place] in each nostril 2 (two) times daily. [facility] mometasone 50 mcg/actuati on nasal spray 2021-0 09-28 00:00: 00 Yes [id number] 1{spray } Use 1 [place] in each nostril 2 (two) times daily. [facility] mometasone 50 mcg/actuati on nasal spray 0 09-28 00:00: 00 Yes [id number] 1{spray } Use 1 [place] in each nostril 2 (two) times daily. [facility] mometasone 50 mcg/actuati on nasal spray 2021-0 19 00:00: 00 Yes [id number] 1{spray } Use 1 [place] in each nostril 2 (two) times daily. [facility] mometasone 50 mcg/actuati on nasal spray 2021-0 19 00:00: 00 Yes [id number] 1{spray } Use 1 [place] in each nostril 2 (two) times daily. [facility] mometasone 50 mcg/actuati on nasal spray 2021-0 19 00:00: 00 Yes [id number] 1{spray } Use 1 [place] in each nostril 2 (two) times daily. [facility] mometasone 50 mcg/actuati on nasal spray 2021-0 5-19 00:00: 00 Yes [id number] 1{spray } Use 1 [place] in each nostril 2 (two) times daily. [facility] mometasone 50 mcg/actuati on nasal spray 2021-0 5-19 00:00: 00 Yes [id number] 1{spray } Use 1 [place] in each nostril 2 (two) times daily. [facility] mometasone 50 mcg/actuati on nasal spray 2021-0 5-19 00:00: 00 Yes [id number] 1{spray } Use 1 [place] in each nostril 2 (two) times daily. [facility] mometasone 50 mcg/actuati on nasal spray 2021-0 5-19 00:00: 00 02-27 00:00 :00 No [id number] 1{spray } Use 1 [place] in each nostril 2 (two) times daily. [facility] mometasone 50 mcg/actuati on nasal spray 2021-0 5-19 00:00: 00 02-27 00:00 :00 No [id number] 1{spray } Use 1 [place] in each nostril 2 (two) times daily. [facility] mometasone 50 mcg/actuati on nasal spray 2021-0 5-19 00:00: 00 02-27 00:00 :00 No [id number] 1{spray } Use 1 [place] in each nostril 2 (two) times daily. [facility] mometasone 50 mcg/actuati on nasal spray 2021-0 5-19 00:00: 00 02-27 00:00 :00 No [id number] 1{spray } Use 1 [place] in each nostril 2 (two) times daily. [facility] mometasone 50 mcg/actuati on nasal spray 2021-0 5-19 00:00: 00 02-27 00:00 :00 No [id number] 1{spray } Use 1 [place] in each nostril 2 (two) times daily. [facility] cetirizine (ZYRTEC) 10 mg tablet 2-0 5-16 00:00: 00 Yes [id number] 10mg Take 1 tablet by mouth daily. [facility] cetirizine (ZYRTEC) 10 mg tablet 2-0 5-16 00:00: 00 Yes [id number] 10mg Take 1 tablet by mouth daily. [facility] cetirizine (ZYRTEC) 10 mg tablet 2-0 5-16 00:00: 00 Yes [id number] 10mg Take 1 tablet by mouth daily. [facility] cetirizine (ZYRTEC) 10 mg tablet 2021-0 5-16 00:00: 00 Yes [id number] 10mg Take 1 tablet by mouth daily. [facility] cetirizine (ZYRTEC) 10 mg tablet 2-0 5-16 00:00: 00 Yes [id number] 10mg Take 1 tablet by mouth daily. [facility] cetirizine (ZYRTEC) 10 mg tablet 2-0 5-16 00:00: 00 Yes [id number] 10mg Take 1 tablet by mouth daily. [facility] cetirizine (ZYRTEC) 10 mg tablet 2021-0 5-16 00:00: 00 Yes [id number] 10mg Take 1 tablet by mouth daily. [facility] cetirizine (ZYRTEC) 10 mg tablet 2-0 5-16 00:00: 00 Yes [id number] 10mg Take 1 tablet by mouth daily. [facility] cetirizine (ZYRTEC) 10 mg tablet 2-0 5-16 00:00: 00 Yes [id number] 10mg Take 1 tablet by mouth daily. [facility] cetirizine (ZYRTEC) 10 mg tablet 2-0 5-16 00:00: 00 Yes [id number] 10mg Take 1 tablet by mouth daily. [facility] cetirizine (ZYRTEC) 10 mg tablet 2-0 5-16 00:00: 00 Yes [id number] 10mg Take 1 tablet by mouth daily. [facility] 10 mg tablet 2021-0 5-16 00:00: 00 02-27 00:00 :00 No [id number] 10mg Take 1 tablet by mouth daily. [facility] cetirizine (ZYRTEC) 10 mg tablet 2021-0 5-16 00:00: 00 02-27 00:00 :00 No [id number] 10mg Take 1 tablet by mouth daily. [facility] cetirizine (ZYRTEC) 10 mg tablet 2021-0 5-16 00:00: 00 02-27 00:00 :00 No [id number] 10mg Take 1 tablet by mouth daily. [facility] cetirizine (ZYRTEC) 10 mg tablet 2021-0 5-16 00:00: 00 02-27 00:00 :00 No [id number] 10mg Take 1 tablet by mouth daily. [facility] cetirizine (ZYRTEC) 10 mg tablet 2021-0 -16 00:00: 00 02-27 00:00 :00 No [id number] 10mg Take 1 tablet by mouth daily. [facility] 2021-0 09 00:00: 00 Yes [facility] gabapentin 300 mg capsule 2021-0 09-18 00:00: 00 Yes [facility] ondansetron 4 mg tablet 2021-0 09-18 00:00: 00 Yes [facility] DULoxetine 30 mg capsule 2021-0 -09 00:00: 00 Yes [facility] gabapentin 300 mg capsule 2-0 09-18 00:00: 00 Yes [facility] ondansetron 4 mg tablet 2021-0 - 00:00: 00 Yes [facility] DULoxetine 30 mg capsule 2-0 - 00:00: 00 Yes [facility] gabapentin 300 mg capsule 2-0 - 00:00: 00 Yes [facility] ondansetron 4 mg tablet 2021-0 -09 00:00: 00 Yes [facility] DULoxetine 30 mg capsule 2-0 09-18 00:00: 00 Yes [facility] gabapentin 300 mg capsule 2-0 09-18 00:00: 00 Yes [facility] ondansetron 4 mg tablet 2-0 09-18 00:00: 00 Yes [facility] DULoxetine 30 mg capsule 2-0 09-18 00:00: 00 Yes [facility] gabapentin 300 mg capsule 2-0 09-18 00:00: 00 Yes [facility] ondansetron 4 mg tablet 2-0 09-18 00:00: 00 Yes [facility] DULoxetine 30 mg capsule 2-0 09-18 00:00: 00 Yes [facility] gabapentin 300 mg capsule 2-0 09-18 00:00: 00 Yes [facility] ondansetron 4 mg tablet 2-0 09-18 00:00: 00 Yes [facility] DULoxetine 30 mg capsule 2-0 09-18 00:00: 00 Yes [facility] gabapentin 300 mg capsule 2-0 09-18 00:00: 00 Yes [facility] ondansetron 4 mg tablet 2-0 09-18 00:00: 00 Yes [facility] DULoxetine 30 mg capsule 2-0 09-18 00:00: 00 Yes [facility] gabapentin 300 mg capsule 2-0 09-18 00:00: 00 Yes [facility] ondansetron 4 mg tablet 2-0 09-18 00:00: 00 Yes [facility] DULoxetine 30 mg capsule 2-0 09-18 00:00: 00 Yes [facility] gabapentin 300 mg capsule 2-0 09-18 00:00: 00 Yes [facility] ondansetron 4 mg tablet 2-0 09-18 00:00: 00 Yes [facility] DULoxetine 30 mg capsule 2-0 09-18 00:00: 00 Yes [facility] gabapentin 300 mg capsule 2-0 - 00:00: 00 Yes [facility] ondansetron 4 mg tablet 2-0 - 00:00: 00 Yes [facility] DULoxetine 30 mg capsule 2-0 - 00:00: 00 Yes [facility] gabapentin 300 mg capsule 2-0 09-18 00:00: 00 Yes [facility] ondansetron 4 mg tablet 2021-0 - 00:00: 00 Yes [facility] DULoxetine 30 mg capsule 2-0 09-18 00:00: 00 02-27 00:00 :00 No [facility] gabapentin 300 mg capsule 2021-0 09-18 00:00: 00 02-27 00:00 :00 No [facility] ondansetron 4 mg tablet 2021-0 09-18 00:00: 00 02-27 00:00 :00 No [facility] DULoxetine 30 mg capsule 2021-0 09-18 00:00: 00 02-27 00:00 :00 No [facility] gabapentin 300 mg capsule 2021-0 09-18 00:00: 00 02-27 00:00 :00 No [facility] ondansetron 4 mg tablet 2021-0 09-18 00:00: 00 02-27 00:00 :00 No [facility] DULoxetine 30 mg capsule 2021-0 09-18 00:00: 00 02-27 00:00 :00 No [facility] gabapentin 300 mg capsule 2021-0 09-18 00:00: 00 02-27 00:00 :00 No [facility] ondansetron 4 mg tablet 2021-0 09-18 00:00: 00 02-27 00:00 :00 No [facility] DULoxetine 30 mg capsule 2-0 - 00:00: 00 02-27 00:00 :00 No [facility] gabapentin 300 mg capsule 2021-0 00:00: 00 02-27 00:00 :00 No [facility] ondansetron 4 mg tablet 09-18 00:00: 00 02-27 00:00 :00 No [facility] DULoxetine 30 mg capsule 09-18 00:00: 00 02-27 00:00 :00 No [facility] gabapentin 300 mg capsule 09-18 00:00: 00 02-27 00:00 :00 No [facility] ondansetron 4 mg tablet 09-18 00:00: 00 02-27 00:00 :00 No [facility] amLODIPine 5 mg tablet 09-01 00:00: 00 Yes [facility] amLODIPine 5 mg tablet 0 09-01 00:00: 00 Yes 5mg Take 5 mg by mouth. [facility] amLODIPine 5 mg tablet 0 09-01 00:00: 00 Yes [facility] amLODIPine 5 mg tablet 0 09-01 00:00: 00 Yes 5mg Take 5 mg by mouth. [facility] amLODIPine 5 mg tablet 0 09-01 00:00: 00 Yes [facility] amLODIPine 5 mg tablet 0 09-01 00:00: 00 Yes 5mg Take 5 mg by mouth. [facility] amLODIPine 5 mg tablet 0 09-01 00:00: 00 Yes [facility] amLODIPine 5 mg tablet 0 09-01 00:00: 00 Yes 5mg Take 5 mg by mouth. [facility] amLODIPine 5 mg tablet 0 09-01 00:00: 00 Yes [facility] amLODIPine 5 mg tablet 0 09-01 00:00: 00 Yes 5mg Take 5 mg by mouth. [facility] amLODIPine 5 mg tablet 0 09-01 00:00: 00 Yes [facility] amLODIPine 5 mg tablet 0 09-01 00:00: 00 Yes 5mg Take 5 mg by mouth. [facility] amLODIPine 5 mg tablet 0 09-01 00:00: 00 Yes [facility] amLODIPine 5 mg tablet 0 09-01 00:00: 00 Yes 5mg Take 5 mg by mouth. [facility] amLODIPine 5 mg tablet 0 09-01 00:00: 00 Yes [facility] amLODIPine 5 mg tablet 0 09-01 00:00: 00 Yes 5mg Take 5 mg by mouth. [facility] amLODIPine 5 mg tablet 0 09-01 00:00: 00 Yes [facility] amLODIPine 5 mg tablet 0 09-01 00:00: 00 Yes 5mg Take 5 mg by mouth. [facility] amLODIPine 5 mg tablet 0 09-01 00:00: 00 Yes [facility] amLODIPine 5 mg tablet 0 09-01 00:00: 00 Yes 5mg Take 5 mg by mouth. [facility] amLODIPine 5 mg tablet 0 09-01 00:00: 00 Yes [facility] amLODIPine 5 mg tablet 0 09-01 00:00: 00 Yes 5mg Take 5 mg by mouth. [facility] amLODIPine 5 mg tablet 0 09-01 00:00: 00 02-27 00:00 :00 No [facility] amLODIPine 5 mg tablet 0 09-01 00:00: 00 02-27 00:00 :00 No 5mg Take 5 mg by mouth. [facility] amLODIPine 5 mg tablet 0 09-01 00:00: 00 02-27 00:00 :00 No [facility] amLODIPine 5 mg tablet 0 09-01 00:00: 00 02-27 00:00 :00 No 5mg Take 5 mg by mouth. [facility] amLODIPine 5 mg tablet 2021-0 09-01 00:00: 00 02-27 00:00 :00 No [facility] amLODIPine 5 mg tablet 2021-0 422 00:00: 00 02-27 00:00 :00 No 5mg Take 5 mg by mouth. [facility] amLODIPine 5 mg tablet 2021-0 422 00:00: 00 02-27 00:00 :00 No [facility] amLODIPine 5 mg tablet 0 09-01 00:00: 00 02-27 00:00 :00 No 5mg Take 5 mg by mouth. [facility] amLODIPine 5 mg tablet 0 09-01 00:00: 00 02-27 00:00 :00 No [facility] amLODIPine 5 mg tablet 0 09-01 00:00: 00 02-27 00:00 :00 No 5mg Take 5 mg by mouth. [facility] buPROPion XL 150 mg 24 hr tablet 2021-0 20 00:00: 00 Yes [facility] buPROPion XL 150 mg 24 hr tablet 2021-0 4-20 00:00: 00 Yes [facility] buPROPion XL 150 mg 24 hr tablet 2021-0 4-20 00:00: 00 Yes [facility] buPROPion XL 150 mg 24 hr tablet 2021-0 4-20 00:00: 00 Yes [facility] buPROPion XL 150 mg 24 hr tablet 2021-0 4-20 00:00: 00 Yes [facility] buPROPion XL 150 mg 24 hr tablet 2021-0 4-20 00:00: 00 Yes [facility] buPROPion XL 150 mg 24 hr tablet 2021-0 4-20 00:00: 00 Yes [facility] buPROPion XL 150 mg 24 hr tablet 2021-0 4-20 00:00: 00 Yes [facility] buPROPion XL 150 mg 24 hr tablet 2-0 4-20 00:00: 00 Yes [facility] buPROPion XL 150 mg 24 hr tablet 2021-0 4-20 00:00: 00 Yes [facility] buPROPion XL 150 mg 24 hr tablet 2-0 4-20 00:00: 00 Yes [facility] buPROPion XL 150 mg 24 hr tablet 2021-0 4-20 00:00: 00 08-31 04:59 :00 No 150mg Take 150 mg by mouth. [facility] buPROPion XL 150 mg 24 hr tablet 2021-0 4-20 00:00: 00 08-31 04:59 :00 No 150mg Take 150 mg by mouth. [facility] buPROPion XL 150 mg 24 hr tablet 2021-0 4-20 00:00: 00 08-31 04:59 :00 No 150mg Take 150 mg by mouth. [facility] buPROPion XL 150 mg 24 hr tablet 2021-0 4-20 00:00: 00 08-31 04:59 :00 No 150mg Take 150 mg by mouth. [facility] buPROPion XL 150 mg 24 hr tablet 2021-0 4-20 00:00: 00 08-31 04:59 :00 No 150mg Take 150 mg by mouth. [facility] buPROPion XL 150 mg 24 hr tablet 2021-0 4-20 00:00: 00 08-31 04:59 :00 No 150mg Take 150 mg by mouth. [facility] buPROPion XL 150 mg 24 hr tablet 2021-0 4-20 00:00: 00 08-31 04:59 :00 No 150mg Take 150 mg by mouth. [facility] buPROPion XL 150 mg 24 hr tablet 2021-0 4-20 00:00: 00 08-31 04:59 :00 No 150mg Take 150 mg by mouth. [facility] buPROPion XL 150 mg 24 hr tablet 2021-0 4-20 00:00: 00 08-31 04:59 :00 No 150mg Take 150 mg by mouth. [facility] buPROPion XL 150 mg 24 hr tablet 2021-0 4-20 00:00: 00 08-31 04:59 :00 No 150mg Take [facility] buPROPion XL 150 mg 24 hr tablet 2021-0 4-20 00:00: 00 08-31 04:59 :00 No 150mg Take 150 mg by mouth. [facility] buPROPion XL 150 mg 24 hr tablet 2021-0 4-20 00:00: 00 02-27 00:00 :00 No [facility] buPROPion XL 150 mg 24 hr tablet 0 4-20 00:00: 00 02-27 00:00 :00 No 150mg Take 150 mg by mouth. [facility] buPROPion XL 150 mg 24 hr tablet 2021-0 4-20 00:00: 00 02-27 00:00 :00 No [facility] buPROPion XL 150 mg 24 hr tablet 0 4-20 00:00: 00 02-27 00:00 :00 No 150mg Take 150 mg by mouth. [facility] buPROPion XL 150 mg 24 hr tablet 0 4-20 00:00: 00 02-27 00:00 :00 No [facility] buPROPion XL 150 mg 24 hr tablet 0 4-20 00:00: 00 02-27 00:00 :00 No 150mg Take 150 mg by mouth. [facility] buPROPion XL 150 mg 24 hr tablet 0 4-20 00:00: 00 02-27 00:00 :00 No [facility] buPROPion XL 150 mg 24 hr tablet 0 4-20 00:00: 00 02-27 00:00 :00 No 150mg Take 150 mg by mouth. [facility] buPROPion XL 150 mg 24 hr tablet 2021-0 4-20 00:00: 00 02-27 00:00 :00 No [facility] buPROPion XL 150 mg 24 hr tablet 0 4-20 00:00: 00 02-27 00:00 :00 No 150mg Take 150 mg by mouth. [facility] proMETHazin e 25 mg tablet 0 4-05 00:00: 00 09-12 00:00 :00 No [id number] 25mg Take 1 tablet by mouth every 6 (six) hours as needed for Nausea and Vomiting (N/V). [facility] traMADoL 50 mg tablet 0 4-05 00:00: 00 09-12 00:00 :00 No [id number] 50mg Take 1 tablet by mouth every 6 (six) hours as needed (pain). Indication s: acute pain [facility] proMETHazin e 25 mg tablet 4-05 00:00: 00 09-12 00:00 :00 No [id number] 25mg Take 1 tablet by mouth every 6 (six) hours as needed for Nausea and Vomiting (N/V). [facility] traMADoL 50 mg tablet 05 00:00: 00 09-12 00:00 :00 No [id number] 50mg Take 1 tablet by mouth every 6 (six) hours as needed (pain). Indication s: acute pain [facility] proMETHazin e 25 mg tablet 4-05 00:00: 00 09-12 00:00 :00 No [id number] 25mg Take 1 tablet by mouth every 6 (six) hours as needed for Nausea and Vomiting (N/V). [facility] traMADoL 50 mg tablet 405 00:00: 00 09-12 00:00 :00 No [id number] 50mg Take 1 tablet by mouth every 6 (six) hours as needed (pain). Indication s: acute pain [facility] cyclobenzap rine 10 mg tablet -28 00:00: 00 08-22 04:59 :00 No [id number] 10mg Take 1 tablet by mouth 3 (three) times daily for 14 days. [facility] ibuprofen 800 mg tablet 3-28 00:00: 00 08-22 04:59 :00 No [id number] 800mg Take 1 tablet by mouth every 6 (six) hours as needed for Pain (scale 1-3) for up to 14 days. [facility] diclofenac 75 mg EC tablet 3 00:00: 00 09-12 00:00 :00 No [facility] orphenadrin e 100 mg SR tablet 08-01 00:00: 00 09-12 00:00 :00 No [facility] EC tablet 08-01 00:00: 09-12 00:00 :00 No [facility] orphenadrin e 100 mg SR tablet 08-01 00:00: 00 09-12 00:00 :00 No [facility] divalproex 125 mg EC tablet 3 00:00: 00 09-12 00:00 :00 No [id number] 125mg Take 1 tablet by mouth every 12 (twelve) hours. [facility] divalproex Sprinkles 125 mg SPRINKLE capsule 3- 00:00: 00 09-12 00:00 :00 No [facility] divalproex 125 mg EC tablet 3- 00:00: 00 09-12 00:00 :00 No [id number] 125mg Take 1 tablet by mouth every 12 (twelve) hours. [facility] divalproex Sprinkles 125 mg SPRINKLE capsule 3- 00:00: 09-12 00:00 :00 No [facility] divalproex 125 mg EC tablet 0 3-11 00:00: 00 09-12 00:00 :00 No [id number] 125mg Take 1 tablet by mouth every 12 (twelve) hours. [facility] ibuprofen 600 mg tablet 3-07 00:00: 00 08-01 04:59 :00 No [id number] 600mg Take 1 tablet by mouth every 6 (six) hours as needed for Temp > 38.5 C for up to 14 days. [facility] acetaminoph en-codeine 300-30 mg tablet 06-11 00:00: 00 09-12 00:00 :00 No TAKE 1 TABLET BY MOUTH EVERY 4 HOURS NEEDED FOR PAIN FOR 2 DAYS [facility] acetaminoph en-codeine 300-30 mg tablet 06-11 00:00: 00 09-12 00:00 :00 No TAKE 1 TABLET BY MOUTH EVERY 4 HOURS NEEDED FOR PAIN FOR 2 DAYS [facility] acetaminoph en-codeine 300-30 mg tablet 06-11 00:00: 00 09-12 00:00 :00 No TAKE 1 TABLET BY MOUTH EVERY 4 HOURS NEEDED FOR PAIN FOR 2 DAYS [facility] fluticasone propionate 110 mcg/actuati on inhaler 05-31 00:00: 00 09-28 00:00 :00 No [id number] 2{puff} Inhale 2 Puffs every 12 (twelve) hours. [facility] fluticasone propionate 110 mcg/actuati on inhaler 05-31 00:00: 00 09-28 00:00 :00 No [id number] 2{puff} Inhale 2 Puffs every 12 (twelve) hours. [facility] fluticasone propionate 110 mcg/actuati on inhaler 05-31 00:00: 00 09-28 00:00 :00 No [id number] 2{puff} Inhale 2 Puffs every 12 (twelve) hours. [facility] fluticasone propionate 110 mcg/actuati on inhaler 05-31 00:00: 00 09-28 00:00 :00 No [id number] 2{puff} Inhale 2 Puffs every 12 (twelve) hours. [facility] benzonatate (TESSALON PERLES) 100 mg capsule 05-25 00:00: 00 09-25 00:00 :00 No [id number] 100mg Take 1 capsule by mouth every 8 (eight) hours as needed for Cough. [facility] benzonatate (TESSALON PERLES) 100 mg capsule 05-25 00:00: 00 09-25 00:00 :00 No [id number] 100mg Take 1 capsule by mouth every 8 (eight) hours as needed for Cough. [facility] benzonatate (TESSALON PERLES) 100 mg capsule 0 05-25 00:00: 00 09-25 00:00 :00 No [id number] 100mg Take 1 capsule by mouth every 8 (eight) hours as needed for Cough. [facility] benzonatate (TESSALON PERLES) 100 mg capsule 05-25 00:00: 00 09-25 00:00 :00 No [id number] 100mg Take 1 capsule by mouth every 8 (eight) hours as needed for Cough. [facility] carvediloL 25 mg tablet 2020-05 00:00: 00 Yes 25mg Take 1 tablet by mouth 2 (two) times daily with meals. [facility] losartan 50 mg tablet 2020-05 00:00: 00 Yes 50mg Take 1 tablet by mouth 2 (two) times daily. [facility] carvediloL 25 mg tablet 2020-05 00:00: 00 Yes 25mg Take 1 tablet by mouth 2 (two) times daily with meals. [facility] losartan 50 mg tablet 2020-05 00:00: 00 Yes 50mg Take 1 tablet by mouth 2 (two) times daily. [facility] carvediloL 25 mg tablet 2020-05 00:00: 00 Yes 25mg Take 1 tablet by mouth 2 (two) times daily with meals. [facility] losartan 50 mg tablet 2020-05 00:00: 00 Yes 50mg Take 1 tablet by mouth 2 (two) times daily. [facility] carvediloL 25 mg tablet 2020-05 00:00: 00 Yes 25mg Take 1 tablet by mouth 2 (two) times daily with meals. [facility] losartan 50 mg tablet 2020-05 00:00: 00 Yes 50mg Take 1 tablet by mouth 2 (two) times daily. [facility] carvediloL 25 mg tablet 2020-05 00:00: 00 Yes 25mg Take 1 tablet by mouth 2 (two) times daily with meals. [facility] losartan 50 mg tablet 2020-05 00:00: 00 Yes 50mg Take 1 tablet by mouth 2 (two) times daily. [facility] carvediloL 25 mg tablet 2020-05 00:00: 00 Yes 25mg Take 1 tablet by mouth 2 (two) times daily with meals. [facility] losartan 50 mg tablet 2020-05 00:00: 00 Yes 50mg Take 1 tablet by mouth 2 (two) times daily. [facility] carvediloL 25 mg tablet 2020-05 00:00: 00 Yes 25mg Take 1 tablet by mouth 2 (two) times daily with meals. [facility] losartan 50 mg tablet 2020-05 00:00: 00 Yes 50mg Take 1 tablet by mouth 2 (two) times daily. [facility] carvediloL 25 mg tablet 2020-05 00:00: 00 Yes 25mg Take 1 tablet by mouth 2 (two) times daily with meals. [facility] losartan 50 mg tablet 2020-05 00:00: 00 Yes 50mg Take 1 tablet by mouth 2 (two) times daily. [facility] carvediloL 25 mg tablet 2020-05 00:00: 00 Yes 25mg Take 1 tablet by mouth 2 (two) times daily with meals. [facility] losartan 50 mg tablet 2020-05 00:00: 00 Yes 50mg Take 1 tablet by mouth 2 (two) times daily. [facility] carvediloL 25 mg tablet 2020-05 00:00: 00 Yes 25mg Take 1 tablet by mouth 2 (two) times daily with meals. [facility] losartan 50 mg tablet 2020-05 00:00: 00 Yes 50mg Take 1 tablet by mouth 2 (two) times daily. [facility] carvediloL 25 mg tablet 2020-05 2 00:00: 00 Yes 25mg Take 1 tablet by mouth 2 (two) times daily with meals. [facility] losartan 50 mg tablet 2020-05 00:00: 00 Yes 50mg Take 1 tablet by mouth 2 (two) times daily. [facility] carvediloL 25 mg tablet 2020-05 2 00:00: 00 02-27 00:00 :00 No 25mg Take 1 tablet by mouth 2 (two) times daily with meals. [facility] losartan 50 mg tablet 2020-05 00:00: 00 02-27 00:00 :00 No 50mg Take 1 tablet by mouth 2 (two) times daily. [facility] carvediloL 25 mg tablet 2020-05 00:00: 00 02-27 00:00 :00 No 25mg Take 1 tablet by mouth 2 (two) times daily with meals. [facility] losartan 50 mg tablet 2020-05 00:00: 00 02-27 00:00 :00 No 50mg Take 1 tablet by mouth 2 (two) times daily. [facility] carvediloL 25 mg tablet 2020-05 00:00: 00 02-27 00:00 :00 No 25mg Take 1 tablet by mouth 2 (two) times daily with meals. [facility] losartan 50 mg tablet 2020-05 00:00: 00 02-27 00:00 :00 No 50mg Take 1 tablet by mouth 2 (two) times daily. [facility] carvediloL 25 mg tablet 2020-05 00:00: 00 02-27 00:00 :00 No 25mg Take 1 tablet by mouth 2 (two) times daily with meals. [facility] losartan 50 mg tablet 2020-05 00:00: 00 02-27 00:00 :00 No 50mg Take 1 tablet by mouth 2 (two) times daily. [facility] carvediloL 25 mg tablet 2020-05 00:00: 00 02-27 00:00 :00 No 25mg Take 1 tablet by mouth 2 (two) times daily with meals. [facility] losartan 50 mg tablet 2020-05 2 00:00: 00 02-27 00:00 :00 No 50mg Take 1 tablet by mouth 2 (two) times daily. [facility] carvediloL 25 mg tablet 2020-05 2 00:00: 00 02-27 00:00 :00 No 25mg Take 1 tablet by mouth 2 (two) times daily with meals. [facility] losartan 50 mg tablet 2020-05 00:00: 00 02-27 00:00 :00 No 50mg Take 1 tablet by mouth 2 (two) times daily. [facility] carvediloL 25 mg tablet 2020-05 2 00:00: 00 02-27 00:00 :00 No 25mg Take 1 tablet by mouth 2 (two) times daily with meals. [facility] losartan 50 mg tablet 2020-05 2 00:00: 00 02-27 00:00 :00 No 50mg Take 1 tablet by mouth 2 (two) times daily. [facility] carvediloL 25 mg tablet 2020-05 2 00:00: 00 02-27 00:00 :00 No 25mg Take 1 tablet by mouth 2 (two) times daily with meals. [facility] losartan 50 mg tablet 2020-05 2 00:00: 00 02-27 00:00 :00 No 50mg Take 1 tablet by mouth 2 (two) times daily. [facility] carvediloL 25 mg tablet 2020-05 2 00:00: 00 02-27 00:00 :00 No 25mg Take 1 tablet by mouth 2 (two) times daily with meals. [facility] losartan 50 mg tablet 2020-05 2 00:00: 00 02-27 00:00 :00 No 50mg Take 1 tablet by mouth 2 (two) times daily. [facility] carvediloL 25 mg tablet 2020-05 00:00: 00 02-27 00:00 :00 No 25mg Take 1 tablet by mouth 2 (two) times daily with meals. [facility] losartan 50 mg tablet 2020-05 00:00: 00 02-27 00:00 :00 No 50mg Take 1 tablet by mouth 2 (two) times daily. [facility] proMETHazin e 25 mg tablet 2020-05 00:00: 00 09-12 00:00 :00 No [facility] proMETHazin e 25 mg tablet 2020-05 00:00: 00 09-12 00:00 :00 No [facility] proMETHazin e 25 mg tablet 2020-05 00:00: 00 09-12 00:00 :00 No [facility] methocarbam oL (ROBAXIN) 500 mg tablet 2020-05 00:00: 00 05-25 00:00 :00 No [id number] 500mg Take 1 tablet by mouth every 6 (six) hours as needed (MUSCLE SPASM). [facility] vitamin B-12 (VITAMIN B-12) 500 mcg tablet 2020-05 00:00: 00 09-12 00:00 :00 No [id number] 500ug Take 1 tablet by mouth daily. [facility] vitamin B-12 (VITAMIN B-12) 500 mcg tablet 2020-05 00:00: 00 09-12 00:00 :00 No [id number] 500ug Take 1 tablet by mouth daily. [facility] vitamin B-12 (VITAMIN B-12) 500 mcg tablet 2020-05 00:00: 00 09-12 00:00 :00 No [id number] 500ug Take 1 tablet by mouth daily. [facility] vitamin B-12 (VITAMIN B-12) 500 mcg tablet 2020-05 00:00: 00 09-12 00:00 :00 No [id number] 500ug Take 1 tablet by mouth daily. [facility] vitamin B-12 (VITAMIN B-12) 500 mcg tablet 2020-05 00:00: 00 09-12 00:00 :00 No [id number] 500ug Take 1 tablet by mouth daily. [facility] vitamin B-12 (VITAMIN B-12) 500 mcg tablet 2020-05 00:00: 00 09-12 00:00 :00 No [id number] 500ug Take 1 tablet by mouth daily. [facility] vitamin B-12 (VITAMIN B-12) 500 mcg tablet 2020-05 00:00: 00 09-12 00:00 :00 No [id number] 500ug Take 1 tablet by mouth daily. [facility] methylPREDN ISolone 4 mg tablets 2020-05 00:00: 00 05-25 00:00 :00 No [id number] Follow package directions [facility] methylPREDN ISolone 4 mg tablets 2020-05 00:00: 00 05-25 00:00 :00 No [id number] Follow package directions [facility] methylPREDN ISolone 4 mg tablets 2020-05 00:00: 00 05-25 00:00 :00 No [id number] Follow package directions [facility] fluticasone propion-chel meteroL 115-21 mcg/actuati on inhaler 02-09 00:00: 00 05-25 00:00 :00 No [id number] 2{puff} Inhale 2 Puffs 2 (two) times daily. Rinse mouth after each use. [facility] albuterol 2.5 mg /3 mL (0.083 %) nebulizer solution 02-09 00:00: 00 05-25 00:00 :00 No [id number] 2.5mg Inhale 3 mL every 6 (six) hours as needed for Wheezing or Shortness of Breath. [facility] fluticasone propion-chel meteroL 115-21 mcg/actuati on inhaler 02-09 00:00: 00 05-25 00:00 :00 No [id number] 2{puff} Inhale 2 Puffs 2 (two) times daily. Rinse mouth after each use. [facility] albuterol 2.5 mg /3 mL (0.083 %) nebulizer solution 02-09 00:00: 00 05-25 00:00 :00 No [id number] 2.5mg Inhale 3 mL every 6 (six) hours as needed for Wheezing or Shortness of Breath. [facility] flutic[facility] propion-chel meteroL 115-21 mcg/actuati on inhaler 02-09 00:00: 00 05-25 00:00 :00 No [id number] 2{puff} Inhale 2 Puffs 2 (two) times daily. Rinse mouth after each use. [facility] albuterol 2.5 mg /3 mL (0.083 %) nebulizer solution 02-09 00:00: 00 05-25 00:00 :00 No [id number] 2.5mg Inhale 3 mL every 6 (six) hours as needed for Wheezing or Shortness of Breath. [facility] fluticasone propion-chel meteroL 115-21 mcg/actuati on inhaler 02-09 00:00: 00 05-25 00:00 :00 No [id number] 2{puff} Inhale 2 Puffs 2 (two) times daily. Rinse mouth after each use. [facility] albuterol 2.5 mg /3 mL (0.083 %) nebulizer solution 02-09 00:00: 00 05-25 00:00 :00 No [id number] 2.5mg Inhale 3 mL every 6 (six) hours as needed for Wheezing or Shortness of Breath. [facility] methocarbam oL (ROBAXIN) 500 mg tablet 02-09 00:00: 00 05-02 00:00 :00 No [id number] 500mg Take 1 tablet by mouth every 6 (six) hours as needed (MUSCLE SPASM). [facility] methocarbam oL (ROBAXIN) 500 mg tablet 02-09 00:00: 00 05-02 00:00 :00 No [id number] 500mg Take 1 tablet by mouth every 6 (six) hours as needed (MUSCLE SPASM). [facility] bromphenira mine-pseudo ephedrine-D M (BROMFED DM) 2-30-10 mg/5 mL syrup 01-31 00:00: 00 02-09 00:00 :00 No [id number] 5mL Take 5 mL by mouth 4 (four) times daily as needed for Cough. [facility] methylPREDN ISolone (MEDROL, ANABELA,) 4 mg tablets 01-20 00:00: 00 02-09 00:00 :00 No [id number] Take by mouth SEE-INSTRU CTIONS. follow package directions [facility] methylPREDN ISolone (MEDROL, ANABELA,) 4 mg tablets 01-20 00:00: 00 02-09 00:00 :00 No [id number] Take by mouth SEE-INSTRU CTIONS. follow package directions [facility] methylPREDN ISolone (MEDROL, ANABELA,) 4 mg tablets 01-20 00:00: 00 02-09 00:00 :00 No [id number] Take by mouth SEE-INSTRU CTIONS. follow package directions [facility] albuterol 90 mcg/actuati on inhaler 01-12 00:00: 00 05-25 00:00 :00 No [id number] 2{puff} Inhale 2 Puffs every 4 (four) hours as needed for Wheezing or Shortness of Breath. [facility] albuterol 90 mcg/actuati on inhaler 01-12 00:00: 00 05-25 00:00 :00 No [id number] 2{puff} Inhale 2 Puffs every 4 (four) hours as needed for Wheezing or Shortness of Breath. [facility] albuterol 90 mcg/actuati on inhaler 01-12 00:00: 00 05-25 00:00 :00 No [id number] 2{puff} Inhale 2 Puffs every 4 (four) hours as needed for Wheezing or Shortness of Breath. [facility] albuterol 90 mcg/actuati on inhaler 01-12 00:00: 00 05-25 00:00 :00 No [id number] 2{puff} Inhale 2 Puffs every 4 (four) hours as needed for Wheezing or Shortness of Breath. [facility] albuterol 90 mcg/actuati on inhaler 01-12 00:00: 00 05-25 00:00 :00 No [id number] 2{puff} Inhale 2 Puffs every 4 (four) hours as needed for Wheezing or Shortness of Breath. [facility] albuterol 90 mcg/actuati on inhaler 01-12 00:00: 00 05-25 00:00 :00 No [id number] 2{puff} Inhale 2 Puffs every 4 (four) hours as needed for Wheezing or Shortness of Breath. [facility] albuterol 90 mcg/actuati on inhaler 01-12 00:00: 00 05-25 00:00 :00 No [id number] 2{puff} Inhale 2 Puffs every 4 (four) hours as needed for Wheezing or Shortness of Breath. [facility] benzonatate 100 mg capsule 01-12 00:00: 00 02-19 00:00 :00 No [id number] 100mg Take 1 capsule by mouth 3 (three) times daily as needed for Cough. [facility] benzonatate 100 mg capsule 01-12 00:00: 00 02-19 00:00 :00 No [id number] 100mg Take 1 capsule by mouth 3 (three) times daily as needed for Cough. [facility] benzonatate 100 mg capsule 9-02 00:00: 00 02-19 00:00 :00 No [id number] 100mg Take 1 capsule by mouth 3 (three) times daily as needed for Cough. [facility] losartan 50 mg tablet 8-13 00:00: 00 02-09 00:00 :00 No 50mg Take 1 tablet by mouth 2 (two) times daily. [facility] mg tablet 8- 00:00: 00 02-09 00:00 :00 No 50mg Take 1 tablet by mouth 2 (two) times daily. [facility] losartan 50 mg tablet 12-23 00:00: 00 02-09 00:00 :00 No 50mg Take 1 tablet by mouth 2 (two) times daily. [facility] topiramate 25 mg tablet 11-22 00:00: 00 12-26 00:00 :00 No 25mg Take 1 tablet by mouth 2 (two) times daily. [facility] OXcarbazepi ne 150 mg tablet 12 00:00: 00 02-09 00:00 :00 No [facility] OXcarbazepi ne 150 mg tablet 7-12 00:00: 00 02-09 00:00 :00 No [facility] OXcarbazepi ne 150 mg tablet 712 00:00: 00 02-09 00:00 :00 No [facility] OXcarbazepi ne 150 mg tablet 0 -12 00:00: 00 02-09 00:00 :00 No [facility] FLUoxetine 40 mg capsule 7-12 00:00: 00 12-26 00:00 :00 No [facility] traZODone 100 mg tablet 0 7-12 00:00: 00 12-26 00:00 :00 No [facility] dicyclomine 20 mg tablet 6-10 00:00: 00 12-26 00:00 :00 No [id number] 20mg Take 1 tablet by mouth 4 (four) times daily. [facility] proMETHazin e 25 mg tablet 6-10 00:00: 00 12-26 00:00 :00 No [id number] 25mg Take 1 tablet by mouth every 6 (six) hours as needed for Nausea and Vomiting (N/V). [facility] acetaminoph en-codeine 300-30 mg tablet 6-05 00:00: 00 12-26 00:00 :00 No TAKE 2 TABLETS BY MOUTH EVERY 6 HOURS NEEDED FOR PAIN [facility] oxybutynin (DITROPAN XL) 10 mg 24 hr tablet 5-30 00:00: 00 12-26 00:00 :00 No [id number] 10mg Take 1 tablet by mouth daily. [facility] ondansetron (ZOFRAN ODT) 4 mg disintegrat ing tablet 5-30 00:00: 00 12-26 00:00 :00 No [id number] 4mg Take 1 tablet by mouth every 8 (eight) hours as needed for Nausea and Vomiting (N/V). [facility] oxybutynin (DITROPAN XL) 10 mg 24 hr tablet 5-30 00:00: 00 12-26 00:00 :00 No [id number] 10mg Take 1 tablet by mouth daily. [facility] ondansetron (ZOFRAN ODT) 4 mg disintegrat ing tablet 5-30 00:00: 00 12-26 00:00 :00 No [id number] 4mg Take 1 tablet by mouth every 8 (eight) hours as needed for Nausea and Vomiting (N/V). [facility] oxybutynin (DITROPAN XL) 10 mg 24 hr tablet 5-30 00:00: 00 12-26 00:00 :00 No [id number] 10mg Take 1 tablet by mouth daily. [facility] ondansetron (ZOFRAN ODT) 4 mg disintegrat ing tablet 10-09 00:00: 00 12-26 00:00 :00 No [id number] 4mg Take 1 tablet by mouth every 8 (eight) hours as needed for Nausea and Vomiting (N/V). [facility] oxybutynin (DITROPAN XL) 10 mg 24 hr tablet 10-09 00:00: 00 12-26 00:00 :00 No [id number] 10mg Take 1 tablet by mouth daily. [facility] ondansetron (ZOFRAN ODT) 4 mg disintegrat ing tablet 10-09 00:00: 00 12-26 00:00 :00 No [id number] 4mg Take 1 tablet by mouth every 8 (eight) hours as needed for Nausea and Vomiting (N/V). [facility] ciprofloxac in HCl 500 mg tablet 10-09 00:00: 00 11-22 00:00 :00 No [id number] 500mg Take 1 tablet by mouth 2 (two) times daily. [facility] ciprofloxac in HCl 500 mg tablet 10-09 00:00: 00 11-22 00:00 :00 No [id number] 500mg Take 1 tablet by mouth 2 (two) times daily. [facility] ciprofloxac in HCl 500 mg tablet 10-09 00:00: 00 11-22 00:00 :00 No [id number] 500mg Take 1 tablet by mouth 2 (two) times daily. [facility] predniSONE 20 mg tablet 10-04 00:00: 00 11-22 00:00 :00 No [id number] 20mg Take 1 tablet by mouth daily. Days 1-2: 3 pills (60 mg). Days 3-4: 2 pills (40 mg). Days 5-6: 1 pill (20 mg). Days 7-8: 1/2 pill (10 mg). Then stop [facility] predniSONE 20 mg tablet 2021-0 5-25 00:00: 00 11-22 00:00 :00 No [id number] 20mg Take 1 tablet by mouth daily. Days 1-2: 3 pills (60 mg). Days 3-4: 2 pills (40 mg). Days 5-6: 1 pill (20 mg). Days 7-8: 1/2 pill (10 mg). Then stop [facility] predniSONE 20 mg tablet 2020-0 10-04 00:00: 00 11-22 00:00 :00 No [id number] 20mg Take 1 tablet by mouth daily. Days 1-2: 3 pills (60 mg). Days 3-4: 2 pills (40 mg). Days 5-6: 1 pill (20 mg). Days 7-8: 1/2 pill (10 mg). Then stop [facility] predniSONE 20 mg tablet 10-04 00:00: 00 11-22 00:00 :00 No [id number] 20mg Take 1 tablet by mouth daily. Days 1-2: 3 pills (60 mg). Days 3-4: 2 pills (40 mg). Days 5-6: 1 pill (20 mg). Days 7-8: 1/2 pill (10 mg). Then stop [facility] predniSONE 20 mg tablet 2020-10-04 00:00: 00 11-22 00:00 :00 No [id number] 20mg Take 1 tablet by mouth daily. Days 1-2: 3 pills (60 mg). Days 3-4: 2 pills (40 mg). Days 5-6: 1 pill (20 mg). Days 7-8: 1/2 pill (10 mg). Then stop [facility] predniSONE 20 mg tablet 2020-0 10-04 00:00: 00 11-22 00:00 :00 No [id number] 20mg Take 1 tablet by mouth daily. Days 1-2: 3 pills (60 mg). Days 3-4: 2 pills (40 mg). Days 5-6: 1 pill (20 mg). Days 7-8: 1/2 pill (10 mg). Then stop [facility] predniSONE 20 mg tablet 2020-10-04 00:00: 00 11-22 00:00 :00 No [id number] 20mg Take 1 tablet by mouth daily. Days 1-2: 3 pills (60 mg). Days 3-4: 2 pills (40 mg). Days 5-6: 1 pill (20 mg). Days 7-8: 1/2 pill (10 mg). Then stop [facility] predniSONE 20 mg tablet 10-04 00:00: 00 11-22 00:00 :00 No [id number] 20mg Take 1 tablet by mouth daily. Days 1-2: 3 pills (60 mg). Days 3-4: 2 pills (40 mg). Days 5-6: 1 pill (20 mg). Days 7-8: 1/2 pill (10 mg). Then stop [facility] predniSONE 20 mg tablet 10-04 00:00: 00 11-22 00:00 :00 No [id number] 20mg Take 1 tablet by mouth daily. Days 1-2: 3 pills (60 mg). Days 3-4: 2 pills (40 mg). Days 5-6: 1 pill (20 mg). Days 7-8: 1/2 pill (10 mg). Then stop [facility] predniSONE 20 mg tablet 10-04 00:00: 00 11-22 00:00 :00 No [id number] 20mg Take 1 tablet by mouth daily. Days 1-2: 3 pills (60 mg). Days 3-4: 2 pills (40 mg). Days 5-6: 1 pill (20 mg). Days 7-8: 1/2 pill (10 mg). Then stop [facility] mupirocin 2 % ointment 20 00:00: 00 12-26 00:00 :00 No [id number] Apply to both nostrils at bedtime [facility] mupirocin 2 % ointment 20 00:00: 00 12-26 00:00 :00 No [id number] Apply to both nostrils at bedtime [facility] mupirocin 2 % ointment 2021-0 5-20 00:00: 00 12-26 00:00 :00 No [id number] Apply to both nostrils at bedtime [facility] mupirocin 2 % ointment 20 00:00: 00 12-26 00:00 :00 No [id number] Apply to both nostrils at bedtime [facility] mupirocin 2 % ointment 09-29 00:00: 00 12-26 00:00 :00 No [id number] Apply to both nostrils at bedtime [facility] mupirocin 2 % ointment 09-29 00:00: 00 12-26 00:00 :00 No [id number] Apply to both nostrils at bedtime [facility] mupirocin 2 % ointment 09-29 00:00: 00 12-26 00:00 :00 No [id number] Apply to both nostrils at bedtime [facility] mupirocin 2 % ointment 09-29 00:00: 00 12-26 00:00 :00 No [id number] Apply to both nostrils at bedtime [facility] mupirocin 2 % ointment 09-29 00:00: 00 12-26 00:00 :00 No [id number] Apply to both nostrils at bedtime [facility] mupirocin 2 % ointment 20 00:00: 00 12-26 00:00 :00 No [id number] Apply to both nostrils at bedtime [facility] mupirocin 2 % ointment 20 00:00: 00 12-26 00:00 :00 No [id number] Apply to both nostrils at bedtime [facility] naproxen sodium (ANAPROX DS) 550 mg tablet 09-28 00:00: 00 12-26 00:00 :00 No [id number] 550mg Take 1 tablet by mouth 2 (two) times daily with meals. [facility] naproxen sodium (ANAPROX DS) 550 mg tablet 09-28 00:00: 00 12-26 00:00 :00 No [id number] 550mg Take 1 tablet by mouth 2 (two) times daily with meals. [facility] naproxen sodium (ANAPROX DS) 550 mg tablet 09-28 00:00: 00 12-26 00:00 :00 No [id number] 550mg Take 1 tablet by mouth 2 (two) times daily with meals. [facility] naproxen sodium (ANAPROX DS) 550 mg tablet 09-28 00:00: 00 12-26 00:00 :00 No [id number] 550mg Take 1 tablet by mouth 2 (two) times daily with meals. [facility] naproxen sodium (ANAPROX DS) 550 mg tablet 09-28 00:00: 00 12-26 00:00 :00 No [id number] 550mg Take 1 tablet by mouth 2 (two) times daily with meals. [facility] naproxen sodium (ANAPROX DS) 550 mg tablet 09-28 00:00: 00 12-26 00:00 :00 No [id number] 550mg Take 1 tablet by mouth 2 (two) times daily with meals. [facility] naproxen sodium (ANAPROX DS) 550 mg tablet 09-28 00:00: 00 12-26 00:00 :00 No [id number] 550mg Take 1 tablet by mouth 2 (two) times daily with meals. [facility] naproxen sodium (ANAPROX DS) 550 mg tablet 09-28 00:00: 00 12-26 00:00 :00 No [id number] 550mg Take 1 tablet by mouth 2 (two) times daily with meals. [facility] naproxen sodium (ANAPROX DS) 550 mg tablet 09-28 00:00: 00 12-26 00:00 :00 No [id number] 550mg Take 1 tablet by mouth 2 (two) times daily with meals. [facility] naproxen sodium (ANAPROX DS) 550 mg tablet 09-28 00:00: 00 12-26 00:00 :00 No [id number] 550mg Take 1 tablet by mouth 2 (two) times daily with meals. [facility] naproxen sodium (ANAPROX DS) 550 mg tablet 09-28 00:00: 00 12-26 00:00 :00 No [id number] 550mg Take 1 tablet by mouth 2 (two) times daily with meals. [facility] losartan 25 mg tablet 09-16 00:00: 00 12-22 00:00 :00 No 25mg Take 1 tablet by mouth 2 (two) times daily. [facility] nadoloL 20 mg tablet 09-16 00:00: 00 12-22 00:00 :00 No [id number] Please take Nadalol 40 mg QAM [facility] losartan 25 mg tablet 09-16 00:00: 00 12-22 00:00 :00 No 25mg Take 1 tablet by mouth 2 (two) times daily. [facility] nadoloL 20 mg tablet 09-16 00:00: 00 12-22 00:00 :00 No [id number] Please take Nadalol 40 mg QAM [facility] losartan 25 mg tablet 09-16 00:00: 00 12-22 00:00 :00 No 25mg Take 1 tablet by mouth 2 (two) times daily. [facility] nadoloL 20 mg tablet 09-16 00:00: 00 12-22 00:00 :00 No [id number] Please take Nadalol 40 mg QAM [facility] losartan 25 mg tablet 09-16 00:00: 00 12-22 00:00 :00 No 25mg Take 1 tablet by mouth 2 (two) times daily. [facility] nadoloL 20 mg tablet 09-16 00:00: 00 12-22 00:00 :00 No [id number] Please take Nadalol 40 mg QAM [facility] losartan 25 mg tablet 09-16 00:00: 00 12-22 00:00 :00 No 25mg Take 1 tablet by mouth 2 (two) times daily. [facility] nadoloL 20 mg tablet 09-16 00:00: 00 12-22 00:00 :00 No [id number] Please take Nadalol 40 mg QAM [facility] losartan 25 mg tablet 09-16 00:00: 00 12-22 00:00 :00 No 25mg Take 1 tablet by mouth 2 (two) times daily. [facility] nadoloL 20 mg tablet 09-16 00:00: 00 12-22 00:00 :00 No [id number] Please take Nadalol 40 mg QAM [facility] losartan 25 mg tablet 09-16 00:00: 00 12-22 00:00 :00 No 25mg Take 1 tablet by mouth 2 (two) times daily. [facility] nadoloL 20 mg tablet 09-16 00:00: 00 12-22 00:00 :00 No [id number] Please take Nadalol 40 mg QAM [facility] losartan 25 mg tablet 09-16 00:00: 00 12-22 00:00 :00 No 25mg Take 1 tablet by mouth 2 (two) times daily. [facility] nadoloL 20 mg tablet 09-16 00:00: 00 12-22 00:00 :00 No [id number] Please take Nadalol 40 mg QAM [facility] losartan 25 mg tablet 09-16 00:00: 00 12-22 00:00 :00 No 25mg Take 1 tablet by mouth 2 (two) times daily. [facility] nadoloL 20 mg tablet 09-16 00:00: 12-22 00:00 :00 No [id number] Please take Nadalol 40 mg QAM [facility] losartan 25 mg tablet 09-16 00:00: 00 12-22 00:00 :00 No 25mg Take 1 tablet by mouth 2 (two) times daily. [facility] nadoloL 20 mg tablet 09-16 00:00: 00 12-22 00:00 :00 No [id number] Please take Nadalol 40 mg QAM [facility] losartan 25 mg tablet 09-16 00:00: 00 12-22 00:00 :00 No 25mg Take 1 tablet by mouth 2 (two) times daily. [facility] nadoloL 20 mg tablet 09-16 00:00: 00 12-22 00:00 :00 No [id number] Please take Nadalol 40 mg QAM [facility] LOESTRIN FE (LOESTRIN FE 1/20) 1 mg-20 mcg (21)/75 mg (7) tablet 09-06 00:00: 00 02-09 00:00 :00 No [id number] 1{tbl} Take 1 tablet by mouth daily. [facility] LOESTRIN FE (LOESTRIN FE 1/20) 1 mg-20 mcg (21)/75 mg (7) tablet 09-06 00:00: 00 02-09 00:00 :00 No [id number] 1{tbl} Take 1 tablet by mouth daily. [facility] LOESTRIN FE (LOESTRIN FE 1/20) 1 mg-20 mcg (21)/75 mg (7) tablet 09-06 00:00: 00 02-09 00:00 :00 No [id number] 1{tbl} Take 1 tablet by mouth daily. [facility] LOESTRIN FE (LOESTRIN FE 1/20) 1 mg-20 mcg (21)/75 mg (7) tablet 09-06 00:00: 00 02-09 00:00 :00 No [id number] 1{tbl} Take 1 tablet by mouth daily. [facility] LOESTRIN FE (LOESTRIN FE 1/20) 1 mg-20 mcg (21)/75 mg (7) tablet 09-06 00:00: 00 02-09 00:00 :00 No [id number] 1{tbl} Take 1 tablet by mouth daily. [facility] LOESTRIN FE (LOESTRIN FE 1/20) 1 mg-20 mcg (21)/75 mg (7) tablet 09-06 00:00: 00 02-09 00:00 :00 No [id number] 1{tbl} Take 1 tablet by mouth daily. [facility] LOESTRIN FE (LOESTRIN FE 1/20) 1 mg-20 mcg (21)/75 mg (7) tablet 09-06 00:00: 00 02-09 00:00 :00 No [id number] 1{tbl} Take 1 tablet by mouth daily. [facility] LOESTRIN FE (LOESTRIN FE 1/20) 1 mg-20 mcg (21)/75 mg (7) tablet 09-06 00:00: 00 02-09 00:00 :00 No [id number] 1{tbl} Take 1 tablet by mouth daily. [facility] LOESTRIN FE (LOESTRIN FE 1/20) 1 mg-20 mcg (21)/75 mg (7) tablet 09-06 00:00: 00 02-09 00:00 :00 No [id number] 1{tbl} Take 1 tablet by mouth daily. [facility] LOESTRIN FE (LOESTRIN FE 1/20) 1 mg-20 mcg (21)/75 mg (7) tablet 09-06 00:00: 00 02-09 00:00 :00 No [id number] 1{tbl} Take 1 tablet by mouth daily. [facility] LOESTRIN FE (LOESTRIN FE 1/20) 1 mg-20 mcg (21)/75 mg (7) tablet 09-06 00:00: 00 02-09 00:00 :00 No [id number] 1{tbl} Take 1 tablet by mouth daily. [facility] LOESTRIN FE (LOESTRIN FE 1/20) 1 mg-20 mcg (21)/75 mg (7) tablet 09-06 00:00: 00 02-09 00:00 :00 No [id number] 1{tbl} Take 1 tablet by mouth daily. [facility] LOESTRIN FE (LOESTRIN FE 1/20) 1 mg-20 mcg (21)/75 mg (7) tablet 09-06 00:00: 00 02-09 00:00 :00 No [id number] 1{tbl} Take 1 tablet by mouth daily. [facility] LOESTRIN FE (LOESTRIN FE 1/20) 1 mg-20 mcg (21)/75 mg (7) tablet 09-06 00:00: 00 02-09 00:00 :00 No [id number] 1{tbl} Take 1 tablet by mouth daily. [facility] FLUoxetine 20 mg capsule 09-06 00:00: 00 11-22 00:00 :00 No [id number] 20mg Take 1 capsule by mouth daily. [facility] traZODone 50 mg tablet 09-06 00:00: 00 11-22 00:00 :00 No [id number] 50mg Take 1 tablet by mouth at bedtime. [facility] FLUoxetine 20 mg capsule 09-06 00:00: 00 11-22 00:00 :00 No [id number] 20mg Take 1 capsule by mouth daily. [facility] traZODone 50 mg tablet 09-06 00:00: 00 11-22 00:00 :00 No [id number] 50mg Take 1 tablet by mouth at bedtime. [facility] FLUoxetine 20 mg capsule 09-06 00:00: 00 11-22 00:00 :00 No [id number] 20mg Take 1 capsule by mouth daily. [facility] traZODone 50 mg tablet 2020-0 4-27 00:00: 00 11-22 00:00 :00 No [id number] 50mg Take 1 tablet by mouth at bedtime. [facility] FLUoxetine 20 mg capsule 2020-0 4-27 00:00: 00 11-22 00:00 :00 No [id number] 20mg Take 1 capsule by mouth daily. [facility] traZODone 50 mg tablet 2020-0 4-27 00:00: 00 11-22 00:00 :00 No [id number] 50mg Take 1 tablet by mouth at bedtime. [facility] FLUoxetine 20 mg capsule 2020-0 4-27 00:00: 00 11-22 00:00 :00 No [id number] 20mg Take 1 capsule by mouth daily. [facility] traZODone 50 mg tablet 2020-0 27 00:00: 00 11-22 00:00 :00 No [id number] 50mg Take 1 tablet by mouth at bedtime. [facility] FLUoxetine 20 mg capsule 2020-0 27 00:00: 00 11-22 00:00 :00 No [id number] 20mg Take 1 capsule by mouth daily. [facility] traZODone 50 mg tablet 2020-0 27 00:00: 00 11-22 00:00 :00 No [id number] 50mg Take 1 tablet by mouth at bedtime. [facility] FLUoxetine 20 mg capsule 2020-0 427 00:00: 00 11-22 00:00 :00 No [id number] 20mg Take 1 capsule by mouth daily. [facility] traZODone 50 mg tablet 2020-0 4-27 00:00: 00 11-22 00:00 :00 No [id number] 50mg Take 1 tablet by mouth at bedtime. [facility] FLUoxetine 20 mg capsule 2020-0 427 00:00: 00 11-22 00:00 :00 No [id number] 20mg Take 1 capsule by mouth daily. [facility] traZODone 50 mg tablet 09-06 00:00: 00 11-22 00:00 :00 No [id number] 50mg Take 1 tablet by mouth at bedtime. [facility] FLUoxetine 20 mg capsule 09-06 00:00: 00 11-22 00:00 :00 No [id number] 20mg Take 1 capsule by mouth daily. [facility] traZODone 50 mg tablet 09-06 00:00: 00 11-22 00:00 :00 No [id number] 50mg Take 1 tablet by mouth at bedtime. [facility] FLUoxetine 20 mg capsule 09-06 00:00: 00 11-22 00:00 :00 No [id number] 20mg Take 1 capsule by mouth daily. [facility] traZODone 50 mg tablet 09-06 00:00: 00 11-22 00:00 :00 No [id number] 50mg Take 1 tablet by mouth at bedtime. [facility] nadoloL 20 mg tablet 08-31 00:00: 00 09-16 00:00 :00 No [id number] Please take Nadalol 40 mg QAM and 20 mg QPM [facility] methocarbam oL (ROBAXIN) 500 mg tablet 08-18 00:00: 00 09-30 00:00 :00 No [id number] 500mg Take 1 tablet by mouth every 6 (six) hours as needed (MUSCLE SPASM). [facility] traMADoL (ULTRAM) 50 mg tablet 08-18 00:00: 00 09-30 00:00 :00 No [id number] 50mg Take 1 tablet by mouth every 6 (six) hours as needed for Pain (scale 7-10). Indication s: acute pain [facility] ibuprofen 800 mg tablet 404 00:00: 00 11-22 00:00 :00 No TAKE 1 TABLET BY MOUTH EVERY 12 HOURS NEEDED FOR PAIN [facility] ibuprofen 800 mg tablet 2020-0 4-04 00:00: 00 11-22 00:00 :00 No TAKE 1 TABLET BY MOUTH EVERY 12 HOURS NEEDED FOR PAIN [facility] ibuprofen 800 mg tablet 2020-0 4-04 00:00: 00 11-22 00:00 :00 No TAKE 1 TABLET BY MOUTH EVERY 12 HOURS NEEDED FOR PAIN [facility] ibuprofen 800 mg tablet 2020-0 4-04 00:00: 00 11-22 00:00 :00 No TAKE 1 TABLET BY MOUTH EVERY 12 HOURS NEEDED FOR PAIN [facility] ibuprofen 800 mg tablet 2020-0 4-04 00:00: 00 11-22 00:00 :00 No TAKE 1 TABLET BY MOUTH EVERY 12 HOURS NEEDED FOR PAIN [facility] ibuprofen 800 mg tablet 2020-0 4-04 00:00: 00 11-22 00:00 :00 No TAKE 1 TABLET BY MOUTH EVERY 12 HOURS NEEDED FOR PAIN [facility] ibuprofen 800 mg tablet 0 4-04 00:00: 00 11-22 00:00 :00 No TAKE 1 TABLET BY MOUTH EVERY 12 HOURS NEEDED FOR PAIN [facility] ibuprofen 800 mg tablet 2020-0 4-04 00:00: 00 11-22 00:00 :00 No TAKE 1 TABLET BY MOUTH EVERY 12 HOURS NEEDED FOR PAIN [facility] ibuprofen 800 mg tablet 2020-0 4-04 00:00: 00 11-22 00:00 :00 No TAKE 1 TABLET BY MOUTH EVERY 12 HOURS NEEDED FOR PAIN [facility] ibuprofen 800 mg tablet 2020-0 4-04 00:00: 00 11-22 00:00 :00 No TAKE 1 TABLET BY MOUTH EVERY 12 HOURS NEEDED FOR PAIN [facility] ondansetron (ZOFRAN ODT) 4 mg disintegrat ing tablet 3-22 00:00: 00 09-30 00:00 :00 No [id number] 4mg Take 1 tablet by mouth every 8 (eight) hours as needed for Nausea and Vomiting (N/V). [facility] ketorolac 10 mg tablet 3-22 00:00: 00 09-30 00:00 :00 No [id number] 10mg Take 1 tablet by mouth every 6 (six) hours as needed for Pain (scale 4-6). [facility] ciprofloxac in HCl 250 mg tablet 322 00:00: 00 09-30 00:00 :00 No [id number] 250mg Take 1 tablet by mouth 2 (two) times daily. [facility] lidocaine 5 % (700 mg/patch) patch 3 00:00: 00 09-30 00:00 :00 No [id number] 1{patch } Apply 1 Patch to area(s) every 24 (twenty-fo ur) hours as needed for Localized pain. [facility] topiramate 25 mg tablet 1-05 00:00: 00 11-22 00:00 :00 No 25mg Take 1 tablet by mouth 2 (two) times daily. [facility] topiramate 25 mg tablet 1-05 00:00: 00 11-22 00:00 :00 No 25mg Take 1 tablet by mouth 2 (two) times daily. [facility] topiramate 25 mg tablet 0 1-05 00:00: 00 11-22 00:00 :00 No 25mg Take 1 tablet by mouth 2 (two) times daily. [facility] topiramate 25 mg tablet 2020-0 1-05 00:00: 00 11-22 00:00 :00 No 25mg Take 1 tablet by mouth 2 (two) times daily. [facility] topiramate 25 mg tablet 2020-0 1-05 00:00: 00 11-22 00:00 :00 No 25mg Take 1 tablet by mouth 2 (two) times daily. [facility] topiramate 25 mg tablet 2020-0 1-05 00:00: 00 11-22 00:00 :00 No 25mg Take 1 tablet by mouth 2 (two) times daily. [facility] topiramate 25 mg tablet 2020-0 1-05 00:00: 00 11-22 00:00 :00 No 25mg Take 1 tablet by mouth 2 (two) times daily. [facility] 2020-0 1-05 00:00: 00 11-22 00:00 :00 No 25mg Take 1 tablet by mouth 2 (two) times daily. [facility] mg tablet 2020-0 1-05 00:00: 00 11-22 00:00 :00 No 25mg Take 1 tablet by mouth 2 (two) times daily. [facility] topiramate 25 mg tablet 2020-0 1-05 00:00: 00 11-22 00:00 :00 No 25mg Take 1 tablet by mouth 2 (two) times daily. [facility] topiramate 25 mg tablet 2020-0 1-05 00:00: 00 11-22 00:00 :00 No 25mg Take 1 tablet by mouth 2 (two) times daily. [facility] topiramate 25 mg tablet 2020-0 1-05 00:00: 00 11-22 00:00 :00 No 25mg Take 1 tablet by mouth 2 (two) times daily. [facility] topiramate 25 mg tablet 2020-0 1-05 00:00: 00 11-22 00:00 :00 No 25mg Take 1 tablet by mouth 2 (two) times daily. [facility] metoprolol succinate XL 25 mg 24 hr tablet 2019-05 00:00: 00 06-15 00:00 :00 No [id number] 12.5mg Take 0.5 tablets by mouth 2 (two) times daily for 90 days. [facility] metoprolol succinate XL 25 mg 24 hr tablet 2019-05 00:00: 00 06-15 00:00 :00 No [id number] 12.5mg Take 0.5 tablets by mouth 2 (two) times daily for 90 days. [facility] metoprolol succinate XL 25 mg 24 hr tablet 2019-05 2-21 00:00: 06-15 00:00 :00 No [id number] 12.5mg Take 0.5 tablets by mouth 2 (two) times daily for 90 days. [facility] FLUoxetine 20 mg capsule 2019-05 00:00: 00 09-06 00:00 :00 No 20mg Take 20 mg by mouth daily. [facility] FLUoxetine 20 mg capsule 2019-05 00:00: 09-06 00:00 :00 No 20mg Take 20 mg by mouth daily. [facility] norgestimat e-ethinyl estradiol 0.25-35 mg-mcg per tablet 11-17 00:00: 04-15 00:00 :00 No [id number] 1{tbl} Take 1 tablet by mouth daily. [facility] buPROPion XL (WELLBUTRIN XL) 150 mg 24 hr tablet 08-12 00:00: 01-04 00:00 :00 No [id number] 150mg Take 1 tablet by mouth daily. [facility] acetaminoph en 325 mg tablet 07-22 00:00: 01-04 00:00 :00 No [id number] 650mg Take 2 tablets by mouth every 6 (six) hours as needed for Pain (scale 1-3) or Pain (scale 4-6). [facility] vitamin w/FA tablet 07-22 00:00: 01-04 00:00 :00 No [id number] 1{tbl} Take 1 tablet by mouth daily. [facility] docusate calcium 240 mg capsule 07-22 00:00: 01-04 00:00 :00 No [id number] 240mg Take 1 capsule by mouth once daily as needed for Constipati on. [facility] ferrous sulfate 325 mg (65 mg iron) tablet 12 00:00: 01-04 00:00 :00 No [id number] 325mg Take 1 tablet by mouth 2 (two) times daily. [facility] ibuprofen 600 mg tablet 12 00:00: 00 01-04 00:00 :00 No [id number] 600mg Take 1 tablet by mouth every 6 (six) hours as needed (Pain). Take with food or milk. [facility] ALBUTEROL 90 mcg/actuati on inhaler 1-14 00:00: 00 05-01 00:00 :00 No [id number] 103 INHALE 2 PUFFS BY MOUTH EVERY 6 HOURS NEEDED FOR WHEEZING FOR SHORTNESS OF BREATH [facility] buPROPion SR (WELLBUTRIN SR) 150 mg SR tablet 05-21 00:00: 01-04 00:00 :00 No [id number] 150mg Take 1 tablet by mouth 2 (two) times daily. [facility] busPIRone 10 mg tablet 05-21 00:00: 00 01-04 00:00 :00 No [id number] 109 10mg Take 1 tablet by mouth 3 (three) times daily. [facility] Immunizations Ordered Immunization Name Filled Immunization Name Date Status Comments Source Influenza Virus Vaccine Quad IM, Preserv and ABX Free 6 MO-64 YRS 2022-02-27 00:00:[address] [facility] Influenza Virus Vaccine Quad IM, Preserv and ABX Free 6 MO-64 YRS 2022-02-27 00:00:[address] [facility] Influenza Virus Vaccine Quad IM, Preserv and ABX Free 6 MO-64 YRS 2022-02-27 00:00:[address] [facility] Influenza Virus Vaccine Quad IM, Preserv and ABX Free 6 MO-64 YRS 2022-02-27 00:00:[address] [facility] Influenza Virus Vaccine Quad IM, Preserv and ABX Free 6 MO-64 YRS 2022-02-27 00:00:[address] [facility] Influenza Virus Vaccine Quad IM, Preserv and ABX Free 6 MO-64 YRS 2022-02-27 00:00:[address] [facility] Influenza Virus Vaccine Quad IM, Preserv and ABX Free 6 MO-64 YRS 2022-02-27 00:00:[address] [facility] Influenza Virus Vaccine Quad IM, Preserv and ABX Free 6 MO-64 YRS 2022-02-27 00:00:[address] [facility] Influenza Virus Vaccine Quad IM, Preserv and ABX Free 6 MO-64 YRS 2022-02-27 00:00:[address] [facility] Influenza Virus Vaccine Quad IM, Preserv and ABX Free 6 MO-64 YRS 2022-02-27 00:00:[address] [facility] Influenza Virus Vaccine Quad IM, Preserv and ABX Free 6 MO-64 YRS 2022-02-27 00:00:[address] [facility] Influenza Virus Vaccine Quad IM, Preserv and ABX Free 6 MO-64 YRS 2022-02-27 00:00:[address] [facility] Influenza Virus Vaccine Quad IM, Preserv and ABX Free 6 MO-64 YRS 2022-02-27 00:00:[address] [facility] Influenza Virus Vaccine Quad IM, Preserv and ABX Free 6 MO-64 YRS 2022-02-27 00:00:[address] [facility] Influenza Virus Vaccine Quad IM, Preserv and ABX Free 6 MO-64 YRS 2022-02-27 00:00:[address] [facility] Influenza Virus Vaccine Quad IM, Preserv and ABX Free 6 MO-64 YRS 2022-02-27 00:00:[address] [facility] Influenza Virus Vaccine Quad IM, Preserv and ABX Free 6 MO-64 YRS 2022-02-27 00:00:[address] [facility] Influenza Virus Vaccine Quad IM, Preserv and ABX Free 6 MO-64 YRS 2022-02-27 00:00:[address] [facility] Influenza Virus Vaccine Quad IM, Preserv and ABX Free 6 MO-64 YRS 2022-02-27 00:00:[address] [facility] Influenza Virus Vaccine Quad IM, Preserv and ABX Free 6 MO-64 YRS 2022-02-27 00:00:[address] [facility] Influenza Virus Vaccine Quad IM, Preserv and ABX Free 6 MO-64 YRS 2022-02-27 00:00:[address] [facility] Influenza Virus Vaccine Quad IM, Preserv and ABX Free 6 MO-64 YRS 2022-02-27 00:00:[address] [facility] Influenza Virus Vaccine Quad IM, Preserv and ABX Free 6 MO-64 YRS 2022-02-27 00:00:[address] [facility] Influenza Virus Vaccine Quad IM, Preserv and ABX Free 6 MO-64 YRS 2022-02-27 00:00:[address] [facility] Influenza Virus Vaccine Quad IM, Preserv and ABX Free 6 MO-64 YRS 2022-02-27 00:00:[address] [facility] Influenza Virus Vaccine Quad IM, Preserv and ABX Free 6 MO-64 YRS 2022-02-27 00:00:[address] [facility] Influenza Virus Vaccine Quad IM, Preserv and ABX Free 6 MO-64 YRS 2022-02-27 00:00:[address] [facility] Influenza Virus Vaccine Quad IM, Preserv and ABX Free 6 MO-64 YRS 2022-02-27 00:00:[address] [facility] Influenza Virus Vaccine Quad IM, Preserv and ABX Free 6 MO-64 YRS 2022-02-27 00:00:[address] [facility] Influenza Virus Vaccine Quad IM, Preserv and ABX Free 6 MO-64 YRS 2022-02-27 00:00:[address] [facility] Influenza Virus Vaccine Quad IM, Preserv and ABX Free 6 MO-64 YRS 2022-02-27 00:00:[address] [facility] Influenza Virus Vaccine Quad IM, Preserv and ABX Free 6 MO-64 YRS 2022-02-27 00:00:[address] [facility] Influenza Virus Vaccine Quad IM, Preserv and ABX Free 6 MO-64 YRS 2022-02-27 00:00:[address] [facility] Influenza Virus Vaccine Quad IM, Preserv and ABX Free 6 MO-64 YRS 2022-02-27 00:00:[address] [facility] Influenza Virus Vaccine Quad IM, Preserv and ABX Free 6 MO-64 YRS 2022-02-27 00:00:[address] [facility] Influenza Virus Vaccine Quad IM, Preserv and ABX Free 6 MO-64 YRS 2022-02-27 00:00:[address] [facility] Influenza Virus Vaccine Quad IM, Preserv and ABX Free 6 MO-64 YRS 2022-02-27 00:00:[address] [facility] Influenza Virus Vaccine Quad IM, Preserv and ABX Free 6 MO-64 YRS 2022-02-27 00:00:[address] [facility] Influenza Virus Vaccine Quad IM, Preserv and ABX Free 6 MO-64 YRS 2022-02-27 00:00:[address] [facility] Influenza Virus Vaccine Quad IM, Preserv and ABX Free 6 MO-64 YRS 2022-02-27 00:00:[address] [facility] Influenza Virus Vaccine Quad IM, Preserv and ABX Free 6 MO-64 YRS 2022-02-27 00:00:[address] [facility] Influenza Virus Vaccine Quad IM, Preserv and ABX Free 6 MO-64 YRS 2022-02-27 00:00:[address] [facility] Influenza Virus Vaccine Quad IM, Preserv and ABX Free 6 MO-64 YRS 2022-02-27 00:00:[address] [facility] Influenza Virus Vaccine Quad IM, Preserv and ABX Free 6 MO-64 YRS 2022-02-27 00:00:[address] [facility] Influenza Virus Vaccine Quad IM, Preserv and ABX Free 6 MO-64 YRS 2022-02-27 00:00:[address] [facility] Influenza Virus Vaccine Quad IM, Preserv and ABX Free 6 MO-64 YRS 2022-02-27 00:00:[address] [facility] Influenza Virus Vaccine Quad IM, Preserv and ABX Free 6 MO-64 YRS 2022-02-27 00:00:[address] [facility] Influenza Virus Vaccine Quad IM, Preserv and ABX Free 6 MO-64 YRS 2022-02-27 00:00:[address] [facility] Influenza Virus Vaccine Quad IM, Preserv and ABX Free 6 MO-64 YRS 2022-02-27 00:00:[address] [facility] Influenza Virus Vaccine Quad IM, Preserv and ABX Free 6 MO-64 YRS (FLUCELVAX) 2022-02-27 00:00:[address] [facility] Influenza Virus Vaccine Quad IM, Preserv and ABX Free 6 MO-64 YRS (FLUCELVAX) 2022-02-27 00:00:[address] [facility] Influenza Virus Vaccine Quad IM, Preserv and ABX Free 6 MO-64 YRS (FLUCELVAX) 2022-02-27 00:00:[address] [facility] Influenza Virus Vaccine Quad .5 mL IM 6+ MO 2022-02-21 00:00:[address] [facility] Influenza Virus Vaccine Quad .5 mL IM 6+ MO 2022-02-21 00:00:[address] [facility] Influenza Virus Vaccine Quad .5 mL IM 6+ MO 2022-02-21 00:00:[address] [facility] Influenza Virus Vaccine Quad .5 mL IM 6+ MO 2022-02-21 00:00:[address] [facility] Influenza Virus Vaccine Quad .5 mL IM 6+ MO 2022-02-21 00:00:[address] [facility] Influenza Virus Vaccine Quad .5 mL IM 6+ MO 2022-02-21 00:00:[address] [facility] Influenza Virus Vaccine Quad .5 mL IM 6+ MO 2022-02-21 00:00:[address] [facility] Influenza Virus Vaccine Quad .5 mL IM 6+ MO 2022-02-21 00:00:[address] [facility] Influenza Virus Vaccine Quad .5 mL IM 6+ MO 2022-02-21 00:00:[address] [facility] Influenza Virus Vaccine Quad .5 mL IM 6+ MO 2022-02-21 00:00:[address] [facility] Influenza Virus Vaccine Quad .5 mL IM 6+ MO 2022-02-21 00:00:[address] [facility] Influenza Virus Vaccine Quad .5 mL IM 6+ MO 2022-02-21 00:00:[address] [facility] Influenza Virus Vaccine Quad .5 mL IM 6+ MO 2022-02-21 00:00:[address] [facility] Influenza Virus Vaccine Quad .5 mL IM 6+ MO (FLUZONE/FLULAVAL/F LUARIX) 2022-02-21 00:00:[address] [facility] Influenza Virus Vaccine Quad .5 mL IM 6+ MO (FLUZONE/FLULAVAL/F LUARIX) 2022-02-21 00:00:[address] [facility] Influenza Virus Vaccine Quad .5 mL IM 6+ MO (FLUZONE/FLULAVAL/F LUARIX) 2022-02-21 00:00:[address] [facility] Influenza Virus Vaccine 2021-06-11 00:00:[address] [facility] Influenza Virus Vaccine 2021-06-11 00:00:[address] [facility] Influenza Virus Vaccine 2021-06-11 00:00:[address] [facility] Influenza Virus Vaccine 2021-06-11 00:00:[address] [facility] Influenza Virus Vaccine 2021-06-11 00:00:[address] [facility] Influenza Virus Vaccine 2021-06-11 00:00:[address] [facility] Influenza Virus Vaccine 2021-06-11 00:00:[address] [facility] Influenza Virus Vaccine 2021-06-11 00:00:[address] [facility] Influenza Virus Vaccine 2021-06-11 00:00:[address] [facility] Influenza Virus Vaccine 2021-06-11 00:00:[address] [facility] Influenza Virus Vaccine 2021-06-11 00:00:[address] [facility] Influenza Virus Vaccine 2021-06-11 00:00:[address] [facility] Influenza Virus Vaccine 2021-06-11 00:00:[address] [facility] Influenza Virus Vaccine 2021-06-11 00:00:[address] [facility] Influenza Virus Vaccine 2021-06-11 00:00:[address] [facility] Influenza Virus Vaccine 2021-06-11 00:00:[address] [facility] Influenza Virus Vaccine 2021-06-11 00:00:[address] [facility] Influenza Virus Vaccine 2021-06-11 00:00:[address] [facility] Influenza Virus Vaccine 2021-06-11 00:00:[address] [facility] Influenza Virus Vaccine 2021-06-11 00:00:[address] [facility] Influenza Virus Vaccine 2021-06-11 00:00:[address] [facility] Influenza Virus Vaccine 2021-06-11 00:00:[address] [facility] Influenza Virus Vaccine 2021-06-11 00:00:[address] [facility] Influenza Virus Vaccine 2021-06-11 00:00:[address] [facility] Influenza Virus Vaccine 2021-06-11 00:00:[address] [facility] Influenza Virus Vaccine 2021-06-11 00:00:00 Completed [facility] Influenza Virus Vaccine 2021-06-11 00:00:[address] [facility] Influenza Virus Vaccine 2021-06-11 00:00:[address] [facility] Influenza Virus Vaccine 2021-06-11 00:00:[address] [facility] Influenza Virus Vaccine 2021-06-11 00:00:[address] [facility] Influenza Virus Vaccine 2021-06-11 00:00:[address] [facility] Influenza Virus Vaccine 2021-06-11 00:00:[address] [facility] Influenza Virus Vaccine 2021-06-11 00:00:[address] [facility] Influenza Virus Vaccine 2021-06-11 00:00:[address] [facility] Influenza Virus Vaccine 2021-06-11 00:00:[address] [facility] Influenza Virus Vaccine 2021-06-11 00:00:[address] [facility] Influenza Virus Vaccine 2021-06-11 00:00:[address] [facility] Influenza Virus Vaccine 2021-06-11 00:00:[address] [facility] Influenza Virus Vaccine 2021-06-11 00:00:[address] [facility] Influenza Virus Vaccine 2021-06-11 00:00:[address] [facility] Influenza Virus Vaccine 2021-06-11 00:00:[address] [facility] Influenza Virus Vaccine 2021-06-11 00:00:[address] [facility] Influenza Virus Vaccine 2021-06-11 00:00:[address] [facility] Influenza Virus Vaccine 2021-06-11 00:00:[address] [facility] Influenza Virus Vaccine 2021-06-11 00:00:[address] [facility] Influenza Virus Vaccine 2021-06-11 00:00:[address] [facility] Influenza Virus Vaccine 2021-06-11 00:00:[address] [facility] Influenza Virus Vaccine 2021-06-11 00:00:[address] [facility] Influenza Virus Vaccine Quad .5 mL IM 6+ MO 2021-06-11 00:00:[address] [facility] Influenza Virus Vaccine 2021-06-11 00:00:[address] [facility] Influenza Virus Vaccine Quad .5 mL IM 6+ MO 2021-06-11 00:00:[address] [facility] Influenza Virus Vaccine 2021-06-11 00:00:[address] [facility] Influenza Virus Vaccine Quad .5 mL IM 6+ MO 2021-06-11 00:00:[address] [facility] Influenza Virus Vaccine 2021-06-11 00:00:[address] [facility] Influenza Virus Vaccine Quad .5 mL IM 6+ MO 2021-06-11 00:00:[address] [facility] Influenza Virus Vaccine 2021-06-11 00:00:[address] [facility] Influenza Virus Vaccine Quad .5 mL IM 6+ MO 2021-06-11 00:00:[address] [facility] Influenza Virus Vaccine 2021-06-11 00:00:[address] [facility] Influenza Virus Vaccine Quad .5 mL IM 6+ MO 2021-06-11 00:00:[address] [facility] Influenza Virus Vaccine 2021-06-11 00:00:[address] [facility] Influenza Virus Vaccine Quad .5 mL IM 6+ MO 2021-06-11 00:00:[address] [facility] Influenza Virus Vaccine 2021-06-11 00:00:[address] [facility] Influenza Virus Vaccine Quad .5 mL IM 6+ MO 2021-06-11 00:00:[address] [facility] Influenza Virus Vaccine 2021-06-11 00:00:[address] [facility] Influenza Virus Vaccine Quad .5 mL IM 6+ MO 2021-06-11 00:00:[address] [facility] Influenza Virus Vaccine 2021-06-11 00:00:[address] [facility] Influenza Virus Vaccine Quad .5 mL IM 6+ MO 2021-06-11 00:00:[address] [facility] Influenza Virus Vaccine 2021-06-11 00:00:[address] [facility] Influenza Virus Vaccine Quad .5 mL IM 6+ MO 2021-06-11 00:00:[address] [facility] Influenza Virus Vaccine 2021-06-11 00:00:[address] [facility] Influenza Virus Vaccine Quad .5 mL IM 6+ MO 2021-06-11 00:00:[address] [facility] Influenza Virus Vaccine 2021-06-11 00:00:[address] [facility] Influenza Virus Vaccine Quad .5 mL IM 6+ MO 2021-06-11 00:00:[address] [facility] Influenza Virus Vaccine 2021-06-11 00:00:[address] [facility] Influenza Virus Vaccine Quad .5 mL IM 6+ MO (FLUZONE/FLULAVAL/F LUARIX) 2021-06-11 00:00:[address] [facility] Influenza Virus Vaccine 2021-06-11 00:00:[address] [facility] Influenza Virus Vaccine Quad .5 mL IM 6+ MO (FLUZONE/FLULAVAL/F LUARIX) 2021-06-11 00:00:[address] [facility] Influenza Virus Vaccine 2021-06-11 00:00:[address] [facility] Influenza Virus Vaccine Quad .5 mL IM 6+ MO (FLUZONE/FLULAVAL/F LUARIX) 2021-06-11 00:00:[address] [facility] Influenza Virus Vaccine 2020-05-19 00:00:[address] [facility] Influenza Virus Vaccine 2020-05-19 00:00:[address] [facility] Influenza Virus Vaccine 2020-05-19 00:00:[address] [facility] Influenza Virus Vaccine 2020-05-19 00:00:[address] [facility] Influenza Virus Vaccine 2020-05-19 00:00:[address] [facility] Influenza Virus Vaccine 2020-05-19 00:00:[address] [facility] Influenza Virus Vaccine 2020-05-19 00:00:[address] [facility] Influenza Virus Vaccine 2020-05-19 00:00:[address] [facility] Influenza Virus Vaccine 2020-05-19 00:00:[address] [facility] Influenza Virus Vaccine 2020-05-19 00:00:[address] [facility] Influenza Virus Vaccine 2020-05-19 00:00:[address] [facility] Influenza Virus Vaccine 2020-05-19 00:00:[address] [facility] Influenza Virus Vaccine 2020-05-19 00:00:[address] [facility] Influenza Virus Vaccine 2020-05-19 00:00:[address] [facility] Influenza Virus Vaccine 2020-05-19 00:00:[address] [facility] Influenza Virus Vaccine 2020-05-19 00:00:[address] [facility] Influenza Virus Vaccine 2020-05-19 00:00:[address] [facility] Influenza Virus Vaccine 2020-05-19 00:00:[address] [facility] Influenza Virus Vaccine 2020-05-19 00:00:[address] [facility] Influenza Virus Vaccine 2020-05-19 00:00:[address] [facility] Influenza Virus Vaccine 2020-05-19 00:00:[address] [facility] Influenza Virus Vaccine 2020-05-19 00:00:[address] [facility] Influenza Virus Vaccine 2020-05-19 00:00:[address] [facility] Influenza Virus Vaccine 2020-05-19 00:00:[address] [facility] Influenza Virus Vaccine 2020-05-19 00:00:[address] [facility] Influenza Virus Vaccine 2020-05-19 00:00:[address] [facility] Influenza Virus Vaccine 2020-05-19 00:00:[address] [facility] Influenza Virus Vaccine 2020-05-19 00:00:[address] [facility] Influenza Virus Vaccine 2020-05-19 00:00:[address] [facility] Influenza Virus Vaccine 2020-05-19 00:00:[address] [facility] Influenza Virus Vaccine 2020-05-19 00:00:[address] [facility] Influenza Virus Vaccine 2020-05-19 00:00:[address] [facility] Influenza Virus Vaccine 2020-05-19 00:00:[address] [facility] Influenza Virus Vaccine 2020-05-19 00:00:[address] [facility] Influenza Virus Vaccine 2020-05-19 00:00:[address] [facility] Influenza Virus Vaccine 2020-05-19 00:00:[address] [facility] Influenza Virus Vaccine 2020-05-19 00:00:[address] [facility] Influenza Virus Vaccine 2020-05-19 00:00:[address] [facility] Influenza Virus Vaccine 2020-05-19 00:00:[address] [facility] Influenza Virus Vaccine 2020-05-19 00:00:[address] [facility] Influenza Virus Vaccine 2020-05-19 00:00:[address] [facility] Influenza Virus Vaccine 2020-05-19 00:00:[address] [facility] Influenza Virus Vaccine 2020-05-19 00:00:[address] [facility] Influenza Virus Vaccine 2020-05-19 00:00:[address] [facility] Influenza Virus Vaccine 2020-05-19 00:00:[address] [facility] Influenza Virus Vaccine 2020-05-19 00:00:[address] [facility] Influenza Virus Vaccine 2020-05-19 00:00:[address] [facility] Influenza Virus Vaccine 2020-05-19 00:00:[address] [facility] Influenza Virus Vaccine 2020-05-19 00:00:[address] [facility] Influenza Virus Vaccine 2020-05-19 00:00:[address] [facility] Influenza Virus Vaccine 2020-05-19 00:00:[address] [facility] Influenza Virus Vaccine 2020-05-19 00:00:[address] [facility] Influenza Virus Vaccine 2020-05-19 00:00:[address] [facility] Influenza Virus Vaccine 2020-05-19 00:00:[address] [facility] Influenza Virus Vaccine 2020-05-19 00:00:[address] [facility] Influenza Virus Vaccine 2020-05-19 00:00:[address] [facility] Influenza Virus Vaccine 2020-05-19 00:00:[address] [facility] Influenza Virus Vaccine 2020-05-19 00:00:[address] [facility] Influenza Virus Vaccine 2020-05-19 00:00:[address] [facility] Influenza Virus Vaccine 2020-05-19 00:00:[address] [facility] Influenza Virus Vaccine 2020-05-19 00:00:[address] [facility] Influenza Virus Vaccine 2020-05-19 00:00:[address] [facility] Influenza Virus Vaccine 2020-05-19 00:00:[address] [facility] Influenza Virus Vaccine Recomb Quad IM, Preserv and ABX Free 18-64 YRS 2020-05-16 00:00:[address] [facility] Influenza Virus Vaccine Recomb Quad IM, Preserv and ABX Free 18-64 YRS 2020-05-16 00:00:[address] [facility] Influenza Virus Vaccine Recomb Quad IM, Preserv and ABX Free 18-64 YRS 2020-05-16 00:00:[address] [facility] Influenza Virus Vaccine Recomb Quad IM, Preserv and ABX Free 18-64 YRS 2020-05-16 00:00:[address] [facility] Influenza Virus Vaccine Recomb Quad IM, Preserv and ABX Free 18-64 YRS 2020-05-16 00:00:[address] [facility] Influenza Virus Vaccine Recomb Quad IM, Preserv and ABX Free 18-64 YRS 2020-05-16 00:00:[address] [facility] Influenza Virus Vaccine Recomb Quad IM, Preserv and ABX Free 18-64 YRS 2020-05-16 00:00:[address] [facility] Influenza Virus Vaccine Recomb Quad IM, Preserv and ABX Free 18-64 YRS 2020-05-16 00:00:[address] [facility] Influenza Virus Vaccine Recomb Quad IM, Preserv and ABX Free 18-64 YRS 2020-05-16 00:00:[address] [facility] Influenza Virus Vaccine Recomb Quad IM, Preserv and ABX Free 18-64 YRS 2020-05-16 00:00:[address] [facility] Influenza Virus Vaccine Recomb Quad IM, Preserv and ABX Free 18-64 YRS 2020-05-16 00:00:[address] [facility] Influenza Virus Vaccine Recomb Quad IM, Preserv and ABX Free 18-64 YRS 2020-05-16 00:00:[address] [facility] Influenza Virus Vaccine Recomb Quad IM, Preserv and ABX Free 18-64 YRS 2020-05-16 00:00:[address] [facility] Influenza Virus Vaccine Recomb Quad IM, Preserv and ABX Free 18-64 YRS 2020-05-16 00:00:[address] [facility] Influenza Virus Vaccine Recomb Quad IM, Preserv and ABX Free 18-64 YRS 2020-05-16 00:00:[address] [facility] Influenza Virus Vaccine Recomb Quad IM, Preserv and ABX Free 18-64 YRS 2020-05-16 00:00:[address] [facility] Influenza Virus Vaccine Recomb Quad IM, Preserv and ABX Free 18-64 YRS 2020-05-16 00:00:[address] [facility] Influenza Virus Vaccine Recomb Quad IM, Preserv and ABX Free 18-64 YRS 2020-05-16 00:00:[address] [facility] Influenza Virus Vaccine Recomb Quad IM, Preserv and ABX Free 18-64 YRS 2020-05-16 00:00:[address] [facility] Influenza Virus Vaccine Recomb Quad IM, Preserv and ABX Free 18-64 YRS 2020-05-16 00:00:[address] [facility] Influenza Virus Vaccine Recomb Quad IM, Preserv and ABX Free 18-64 YRS 2020-05-16 00:00:[address] [facility] Influenza Virus Vaccine Recomb Quad IM, Preserv and ABX Free 18-64 YRS 2020-05-16 00:00:[address] [facility] Influenza Virus Vaccine Recomb Quad IM, Preserv and ABX Free 18-64 YRS 2020-05-16 00:00:[address] [facility] Influenza Virus Vaccine Recomb Quad IM, Preserv and ABX Free 18-64 YRS 2020-05-16 00:00:[address] [facility] Influenza Virus Vaccine Recomb Quad IM, Preserv and ABX Free 18-64 YRS 2020-05-16 00:00:[address] [facility] Influenza Virus Vaccine Recomb Quad IM, Preserv and ABX Free 18-64 YRS 2020-05-16 00:00:[address] [facility] Influenza Virus Vaccine Recomb Quad IM, Preserv and ABX Free 18-64 YRS 2020-05-16 00:00:[address] [facility] Influenza Virus Vaccine Recomb Quad IM, Preserv and ABX Free 18-64 YRS 2020-05-16 00:00:[address] [facility] Influenza Virus Vaccine Recomb Quad IM, Preserv and ABX Free 18-64 YRS 2020-05-16 00:00:[address] [facility] Influenza Virus Vaccine Recomb Quad IM, Preserv and ABX Free 18-64 YRS 2020-05-16 00:00:[address] [facility] Influenza Virus Vaccine Recomb Quad IM, Preserv and ABX Free 18-64 YRS 2020-05-16 00:00:[address] [facility] Influenza Virus Vaccine Recomb Quad IM, Preserv and ABX Free 18-64 YRS 2020-05-16 00:00:[address] [facility] Influenza Virus Vaccine Recomb Quad IM, Preserv and ABX Free 18-64 YRS 2020-05-16 00:00:[address] [facility] Influenza Virus Vaccine Recomb Quad IM, Preserv and ABX Free 18-64 YRS 2020-05-16 00:00:[address] [facility] Influenza Virus Vaccine Recomb Quad IM, Preserv and ABX Free 18-64 YRS 2020-05-16 00:00:[address] [facility] Influenza Virus Vaccine Recomb Quad IM, Preserv and ABX Free 18-64 YRS 2020-05-16 00:00:[address] [facility] Influenza Virus Vaccine Recomb Quad IM, Preserv and ABX Free 18-64 YRS 2020-05-16 00:00:[address] [facility] Influenza Virus Vaccine Recomb Quad IM, Preserv and ABX Free 18-64 YRS 2020-05-16 00:00:[address] [facility] Influenza Virus Vaccine Recomb Quad IM, Preserv and ABX Free 18-64 YRS 2020-05-16 00:00:[address] [facility] Influenza Virus Vaccine Recomb Quad IM, Preserv and ABX Free 18-64 YRS 2020-05-16 00:00:[address] [facility] Influenza Virus Vaccine Recomb Quad IM, Preserv and ABX Free 18-64 YRS 2020-05-16 00:00:[address] [facility] Influenza Virus Vaccine Recomb Quad IM, Preserv and ABX Free 18-64 YRS 2020-05-16 00:00:[address] [facility] Influenza Virus Vaccine Recomb Quad IM, Preserv and ABX Free 18-64 YRS 2020-05-16 00:00:[address] [facility] Influenza Virus Vaccine Recomb Quad IM, Preserv and ABX Free 18-64 YRS 2020-05-16 00:00:[address] [facility] Influenza Virus Vaccine Recomb Quad IM, Preserv and ABX Free 18-64 YRS 2020-05-16 00:00:[address] [facility] Influenza Virus Vaccine Recomb Quad IM, Preserv and ABX Free 18-64 YRS 2020-05-16 00:00:[address] [facility] Influenza Virus Vaccine Recomb Quad IM, Preserv and ABX Free 18-64 YRS 2020-05-16 00:00:[address] [facility] Influenza Virus Vaccine Recomb Quad IM, Preserv and ABX Free 18-64 YRS 2020-05-16 00:00:[address] [facility] Influenza Virus Vaccine Recomb Quad IM, Preserv and ABX Free 18-64 YRS 2020-05-16 00:00:[address] [facility] Influenza Virus Vaccine Recomb Quad IM, Preserv and ABX Free 18-64 YRS 2020-05-16 00:00:[address] [facility] Influenza Virus Vaccine Recomb Quad IM, Preserv and ABX Free 18-64 YRS 2020-05-16 00:00:[address] [facility] Influenza Virus Vaccine Recomb Quad IM, Preserv and ABX Free 18-64 YRS 2020-05-16 00:00:[address] [facility] Influenza Virus Vaccine Recomb Quad IM, Preserv and ABX Free 18-64 YRS 2020-05-16 00:00:[address] [facility] Influenza Virus Vaccine Recomb Quad IM, Preserv and ABX Free 18-64 YRS 2020-05-16 00:00:[address] [facility] Influenza Virus Vaccine Recomb Quad IM, Preserv and ABX Free 18-64 YRS 2020-05-16 00:00:[address] [facility] Influenza Virus Vaccine Recomb Quad IM, Preserv and ABX Free 18-64 YRS 2020-05-16 00:00:[address] [facility] Influenza Virus Vaccine Recomb Quad IM, Preserv and ABX Free 18-64 YRS 2020-05-16 00:00:[address] [facility] Influenza Virus Vaccine Recomb Quad IM, Preserv and ABX Free 18-64 YRS 2020-05-16 00:00:[address] [facility] Influenza Virus Vaccine Recomb Quad IM, Preserv and ABX Free 18-64 YRS 2020-05-16 00:00:[address] [facility] Influenza Virus Vaccine Recomb Quad IM, Preserv and ABX Free 18-64 YRS 2020-05-16 00:00:[address] [facility] Influenza Virus Vaccine Recomb Quad IM, Preserv and ABX Free 18-64 YRS 2020-05-16 00:00:[address] [facility] Influenza Virus Vaccine Recomb Quad IM, Preserv and ABX Free 18-64 YRS 2020-05-16 00:00:[address] [facility] Influenza Virus Vaccine Recomb Quad IM, Preserv and ABX Free 18-64 YRS 2020-05-16 00:00:[address] [facility] TDAP (ADACEL) VACCINE 2019-05-21 00:00:[address] [facility] TDAP (ADACEL) VACCINE 2019-05-21 00:00:[address] [facility] TDAP (ADACEL) VACCINE 2019-05-21 00:00:[address] [facility] TDAP (ADACEL) VACCINE 2019-05-21 00:00:[address] [facility] TDAP (ADACEL) VACCINE 2019-05-21 00:00:[address] [facility] TDAP (ADACEL) VACCINE 2019-05-21 00:00:[address] [facility] TDAP (ADACEL) VACCINE 2019-05-21 00:00:[address] [facility] TDAP (ADACEL) VACCINE 2019-05-21 00:00:[address] [facility] TDAP (ADACEL) VACCINE 2019-05-21 00:00:[address] [facility] TDAP (ADACEL) VACCINE 2019-05-21 00:00:[address] [facility] TDAP (ADACEL) VACCINE 2019-05-21 00:00:[address] [facility] TDAP (ADACEL) VACCINE 2019-05-21 00:00:[address] [facility] TDAP (ADACEL) VACCINE 2019-05-21 00:00:[address] [facility] TDAP (ADACEL) VACCINE 2019-05-21 00:00:[address] [facility] TDAP (ADACEL) VACCINE 2019-05-21 00:00:[address] [facility] TDAP (ADACEL) VACCINE 2019-05-21 00:00:[address] [facility] TDAP (ADACEL) VACCINE 2019-05-21 00:00:[address] [facility] TDAP (ADACEL) VACCINE 2019-05-21 00:00:[address] [facility] TDAP (ADACEL) VACCINE 2019-05-21 00:00:[address] [facility] TDAP (ADACEL) VACCINE 2019-05-21 00:00:[address] [facility] TDAP (ADACEL) VACCINE 2019-05-21 00:00:[address] [facility] TDAP (ADACEL) VACCINE 2019-05-21 00:00:[address] [facility] TDAP (ADACEL) VACCINE 2019-05-21 00:00:[address] [facility] TDAP (ADACEL) VACCINE 2019-05-21 00:00:[address] [facility] TDAP (ADACEL) VACCINE 2019-05-21 00:00:[address] [facility] TDAP (ADACEL) VACCINE 2019-05-21 00:00:[address] [facility] TDAP (ADACEL) VACCINE 2019-05-21 00:00:[address] [facility] TDAP (ADACEL) VACCINE 2019-05-21 00:00:[address] [facility] TDAP (ADACEL) VACCINE 2019-05-21 00:00:[address] [facility] TDAP (ADACEL) VACCINE 2019-05-21 00:00:[address] [facility] TDAP (ADACEL) VACCINE 2019-05-21 00:00:[address] [facility] TDAP (ADACEL) VACCINE 2019-05-21 00:00:[address] [facility] TDAP (ADACEL) VACCINE 2019-05-21 00:00:[address] [facility] TDAP (ADACEL) VACCINE 2019-05-21 00:00:[address] [facility] TDAP (ADACEL) VACCINE 2019-05-21 00:00:[address] [facility] TDAP (ADACEL) VACCINE 2019-05-21 00:00:[address] [facility] TDAP (ADACEL) VACCINE 2019-05-21 00:00:[address] [facility] TDAP (ADACEL) VACCINE 2019-05-21 00:00:[address] [facility] TDAP (ADACEL) VACCINE 2019-05-21 00:00:[address] [facility] TDAP (ADACEL) VACCINE 2019-05-21 00:00:[address] [facility] TDAP (ADACEL) VACCINE 2019-05-21 00:00:[address] [facility] TDAP (ADACEL) VACCINE 2019-05-21 00:00:[address] [facility] TDAP (ADACEL) VACCINE 2019-05-21 00:00:[address] [facility] TDAP (ADACEL) VACCINE 2019-05-21 00:00:[address] [facility] TDAP (ADACEL) VACCINE 2019-05-21 00:00:[address] [facility] TDAP (ADACEL) VACCINE 2019-05-21 00:00:[address] [facility] TDAP (ADACEL) VACCINE 2019-05-21 00:00:[address] [facility] TDAP (ADACEL) VACCINE 2019-05-21 00:00:[address] [facility] TDAP (ADACEL) VACCINE 2019-05-21 00:00:[address] [facility] TDAP (ADACEL) VACCINE 2019-05-21 00:00:[address] [facility] TDAP (ADACEL) VACCINE 2019-05-21 00:00:[address] [facility] TDAP (ADACEL) VACCINE 2019-05-21 00:00:[address] [facility] TDAP (ADACEL) VACCINE 2019-05-21 00:00:[address] [facility] TDAP (ADACEL) VACCINE 2019-05-21 00:00:[address] [facility] TDAP (ADACEL) VACCINE 2019-05-21 00:00:[address] [facility] TDAP (ADACEL) VACCINE 2019-05-21 00:00:[address] [facility] TDAP (ADACEL) VACCINE 2019-05-21 00:00:[address] [facility] TDAP (ADACEL) VACCINE 2019-05-21 00:00:[address] [facility] TDAP (ADACEL) VACCINE 2019-05-21 00:00:[address] [facility] TDAP (ADACEL) VACCINE 2019-05-21 00:00:[address] [facility] TDAP (ADACEL) VACCINE 2019-05-21 00:00:[address] [facility] TDAP (ADACEL) VACCINE 2019-05-21 00:00:[address] [facility] TDAP (ADACEL) VACCINE 2019-05-21 00:00:[address] [facility] Influenza Virus Vaccine Quad .5 mL IM 6+ MO 2019-02-06 00:00:[address] [facility] Influenza Virus Vaccine Quad .5 mL IM 6+ MO 2019-02-06 00:00:[address] [facility] Influenza Virus Vaccine Quad .5 mL IM 6+ MO 2019-02-06 00:00:[address] [facility] Influenza Virus Vaccine Quad .5 mL IM 6+ MO 2019-02-06 00:00:[address] [facility] Influenza Virus Vaccine Quad .5 mL IM 6+ MO 2019-02-06 00:00:[address] [facility] Influenza Virus Vaccine Quad .5 mL IM 6+ MO 2019-02-06 00:00:[address] [facility] Influenza Virus Vaccine Quad .5 mL IM 6+ MO 2019-02-06 00:00:[address] [facility] Influenza Virus Vaccine Quad .5 mL IM 6+ MO 2019-02-06 00:00:[address] [facility] Influenza Virus Vaccine Quad .5 mL IM 6+ MO 2019-02-06 00:00:[address] [facility] Influenza Virus Vaccine Quad .5 mL IM 6+ MO 2019-02-06 00:00:[address] [facility] Influenza Virus Vaccine Quad .5 mL IM 6+ MO 2019-02-06 00:00:[address] [facility] Influenza Virus Vaccine Quad .5 mL IM 6+ MO 2019-02-06 00:00:[address] [facility] Influenza Virus Vaccine Quad .5 mL IM 6+ MO 2019-02-06 00:00:[address] [facility] Influenza Virus Vaccine Quad .5 mL IM 6+ MO 2019-02-06 00:00:[address] [facility] Influenza Virus Vaccine Quad .5 mL IM 6+ MO 2019-02-06 00:00:[address] [facility] Influenza Virus Vaccine Quad .5 mL IM 6+ MO 2019-02-06 00:00:[address] [facility] Influenza Virus Vaccine Quad .5 mL IM 6+ MO 2019-02-06 00:00:[address] [facility] Influenza Virus Vaccine Quad .5 mL IM 6+ MO 2019-02-06 00:00:[address] [facility] Influenza Virus Vaccine Quad .5 mL IM 6+ MO 2019-02-06 00:00:[address] [facility] Influenza Virus Vaccine Quad .5 mL IM 6+ MO 2019-02-06 00:00:[address] [facility] Influenza Virus Vaccine Quad .5 mL IM 6+ MO 2019-02-06 00:00:[address] [facility] Influenza Virus Vaccine Quad .5 mL IM 6+ MO 2019-02-06 00:00:[address] [facility] Influenza Virus Vaccine Quad .5 mL IM 6+ MO 2019-02-06 00:00:[address] [facility] Influenza Virus Vaccine Quad .5 mL IM 6+ MO 2019-02-06 00:00:[address] [facility] Influenza Virus Vaccine Quad .5 mL IM 6+ MO 2019-02-06 00:00:[address] [facility] Influenza Virus Vaccine Quad .5 mL IM 6+ MO 2019-02-06 00:00:[address] [facility] Influenza Virus Vaccine Quad .5 mL IM 6+ MO 2019-02-06 00:00:[address] [facility] Influenza Virus Vaccine Quad .5 mL IM 6+ MO 2019-02-06 00:00:[address] [facility] Influenza Virus Vaccine Quad .5 mL IM 6+ MO 2019-02-06 00:00:[address] [facility] Influenza Virus Vaccine Quad .5 mL IM 6+ MO 2019-02-06 00:00:[address] [facility] Influenza Virus Vaccine Quad .5 mL IM 6+ MO 2019-02-06 00:00:[address] [facility] Influenza Virus Vaccine Quad .5 mL IM 6+ MO 2019-02-06 00:00:[address] [facility] Influenza Virus Vaccine Quad .5 mL IM 6+ MO 2019-02-06 00:00:[address] [facility] Influenza Virus Vaccine Quad .5 mL IM 6+ MO 2019-02-06 00:00:[address] [facility] Influenza Virus Vaccine Quad .5 mL IM 6+ MO 2019-02-06 00:00:[address] [facility] Influenza Virus Vaccine Quad .5 mL IM 6+ MO 2019-02-06 00:00:[address] [facility] Influenza Virus Vaccine Quad .5 mL IM 6+ MO 2019-02-06 00:00:[address] [facility] Influenza Virus Vaccine Quad .5 mL IM 6+ MO 2019-02-06 00:00:[address] [facility] Influenza Virus Vaccine Quad .5 mL IM 6+ MO 2019-02-06 00:00:[address] [facility] Influenza Virus Vaccine Quad .5 mL IM 6+ MO 2019-02-06 00:00:[address] [facility] Influenza Virus Vaccine Quad .5 mL IM 6+ MO 2019-02-06 00:00:[address] [facility] Influenza Virus Vaccine Quad .5 mL IM 6+ MO 2019-02-06 00:00:[address] [facility] Influenza Virus Vaccine Quad .5 mL IM 6+ MO 2019-02-06 00:00:[address] [facility] Influenza Virus Vaccine Quad .5 mL IM 6+ MO 2019-02-06 00:00:[address] [facility] Influenza Virus Vaccine Quad .5 mL IM 6+ MO 2019-02-06 00:00:[address] [facility] Influenza Virus Vaccine Quad .5 mL IM 6+ MO 2019-02-06 00:00:[address] [facility] Influenza Virus Vaccine Quad .5 mL IM 6+ MO 2019-02-06 00:00:[address] [facility] Influenza Virus Vaccine Quad .5 mL IM 6+ MO 2019-02-06 00:00:[address] [facility] Influenza Virus Vaccine Quad .5 mL IM 6+ MO 2019-02-06 00:00:[address] [facility] Influenza Virus Vaccine Quad .5 mL IM 6+ MO 2019-02-06 00:00:[address] [facility] Influenza Virus Vaccine Quad .5 mL IM 6+ MO 2019-02-06 00:00:[address] [facility] Influenza Virus Vaccine Quad .5 mL IM 6+ MO 2019-02-06 00:00:[address] [facility] Influenza Virus Vaccine Quad .5 mL IM 6+ MO 2019-02-06 00:00:[address] [facility] Influenza Virus Vaccine Quad .5 mL IM 6+ MO 2019-02-06 00:00:[address] [facility] Influenza Virus Vaccine Quad .5 mL IM 6+ MO 2019-02-06 00:00:[address] [facility] Influenza Virus Vaccine Quad .5 mL IM 6+ MO 2019-02-06 00:00:[address] [facility] Influenza Virus Vaccine Quad .5 mL IM 6+ MO 2019-02-06 00:00:[address] [facility] Influenza Virus Vaccine Quad .5 mL IM 6+ MO 2019-02-06 00:00:[address] [facility] Influenza Virus Vaccine Quad .5 mL IM 6+ MO 2019-02-06 00:00:[address] [facility] Influenza Virus Vaccine Quad .5 mL IM 6+ MO 2019-02-06 00:00:[address] [facility] Influenza Virus Vaccine Quad .5 mL IM 6+ MO (FLUZONE/FLULAVAL/F LUARIX) 2019-02-06 00:00:[address] [facility] Influenza Virus Vaccine Quad .5 mL IM 6+ MO (FLUZONE/FLULAVAL/F LUARIX) 2019-02-06 00:00:[address] [facility] Influenza Virus Vaccine Quad .5 mL IM 6+ MO (FLUZONE/FLULAVAL/F LUARIX) 2019-02-06 00:00:[address] [facility] Influenza Virus Vaccine Quad .5 mL IM 6+ MO (FLUZONE/FLULAVAL/F LUARIX) Unknown Completed [facility] TDAP (ADACEL) VACCINE Unknown Completed [facility] Influenza Virus Vaccine Recomb Quad IM, Preserv and ABX Free 18-64 YRS Unknown Completed [facility] Influenza Virus Vaccine Unknown Completed [facility] Influenza Virus Vaccine Unknown Completed [facility] Influenza Virus Vaccine Quad IM, Preserv and ABX Free 6 MO-64 YRS (FLUCELVAX) Unknown Completed [facility] Influenza Virus Vaccine Quad .5 mL IM 6+ MO (FLUZONE/FLULAVAL/F LUARIX) Unknown Completed [facility] Influenza Virus Vaccine Quad .5 mL IM 6+ MO (FLUZONE/FLULAVAL/F LUARIX) Unknown Completed [facility] Influenza Virus Vaccine Quad .5 mL IM 6+ MO (FLUZONE/FLULAVAL/F LUARIX) Unknown Completed [facility] TDAP (ADACEL) VACCINE Unknown Completed [facility] Influenza Virus Vaccine Recomb Quad IM, Preserv and ABX Free 18-64 YRS Unknown Completed [facility] Influenza Virus Vaccine Unknown Completed [facility] Influenza Virus Vaccine Unknown Completed [facility] Influenza Virus Vaccine Quad IM, Preserv and ABX Free 6 MO-64 YRS (FLUCELVAX) Unknown Completed [facility] Influenza Virus Vaccine Quad .5 mL IM 6+ MO (FLUZONE/FLULAVAL/F LUARIX) Unknown Completed [facility] Influenza Virus Vaccine Quad .5 mL IM 6+ MO (FLUZONE/FLULAVAL/F LUARIX) Unknown Completed [facility] Influenza Virus Vaccine Quad .5 mL IM 6+ MO (FLUZONE/FLULAVAL/F LUARIX) Unknown Completed [facility] TDAP (ADACEL) VACCINE Unknown Completed [facility] Influenza Virus Vaccine Recomb Quad IM, Preserv and ABX Free 18-64 YRS Unknown Completed [facility] Influenza Virus Vaccine Unknown Completed [facility] Influenza Virus Vaccine Unknown Completed [facility] Influenza Virus Vaccine Quad .5 mL IM 6+ MO (FLUZONE/FLULAVAL/F LUARIX) Unknown Completed [facility] Influenza Virus Vaccine Quad .5 mL IM 6+ MO (FLUZONE/FLULAVAL/F LUARIX) Unknown Completed [facility] TDAP (ADACEL) VACCINE Unknown Completed [facility] Influenza Virus Vaccine Recomb Quad IM, Preserv and ABX Free 18-64 YRS Unknown Completed [facility] Influenza Virus Vaccine Unknown Completed [facility] Influenza Virus Vaccine Unknown Completed [facility] Influenza Virus Vaccine Quad .5 mL IM 6+ MO (FLUZONE/FLULAVAL/F LUARIX) Unknown Completed [facility] Influenza Virus Vaccine Quad .5 mL IM 6+ MO (FLUZONE/FLULAVAL/F LUARIX) Unknown Completed [facility] TDAP (ADACEL) VACCINE Unknown Completed [facility] Influenza Virus Vaccine Recomb Quad IM, Preserv and ABX Free 18-64 YRS Unknown Completed [facility] Influenza Virus Vaccine Unknown Completed [facility] Influenza Virus Vaccine Unknown Completed [facility] Influenza Virus Vaccine Quad .5 mL IM 6+ MO (FLUZONE/FLULAVAL/F LUARIX) Unknown Completed [facility] Influenza Virus Vaccine Quad .5 mL IM 6+ MO (FLUZONE/FLULAVAL/F LUARIX) Unknown Completed [facility] TDAP (ADACEL) VACCINE Unknown Completed [facility] Influenza Virus Vaccine Recomb Quad IM, Preserv and ABX Free 18-64 YRS Unknown Completed [facility] Influenza Virus Vaccine Unknown Completed [facility] Influenza Virus Vaccine Unknown Completed [facility] Influenza Virus Vaccine Quad .5 mL IM 6+ MO (FLUZONE/FLULAVAL/F LUARIX) Unknown Completed [facility] Influenza Virus Vaccine Quad .5 mL IM 6+ MO (FLUZONE/FLULAVAL/F LUARIX) Unknown Completed [facility] TDAP (ADACEL) VACCINE Unknown Completed [facility] Influenza Virus Vaccine Recomb Quad IM, Preserv and ABX Free 18-64 YRS Unknown Completed [facility] Influenza Virus Vaccine Unknown Completed [facility] Influenza Virus Vaccine Unknown Completed [facility] Influenza Virus Vaccine Quad .5 mL IM 6+ MO (FLUZONE/FLULAVAL/F LUARIX) Unknown Completed [facility] Influenza Virus Vaccine Quad .5 mL IM 6+ MO (FLUZONE/FLULAVAL/F LUARIX) Unknown Completed [facility] TDAP (ADACEL) VACCINE Unknown Completed [facility] Influenza Virus Vaccine Recomb Quad IM, Preserv and ABX Free 18-64 YRS Unknown Completed [facility] Influenza Virus Vaccine Unknown Completed [facility] Influenza Virus Vaccine Unknown Completed [facility] Influenza Virus Vaccine Quad .5 mL IM 6+ MO (FLUZONE/FLULAVAL/F LUARIX) Unknown Completed [facility] Influenza Virus Vaccine Quad .5 mL IM 6+ MO (FLUZONE/FLULAVAL/F LUARIX) Unknown Completed [facility] TDAP (ADACEL) VACCINE Unknown Completed [facility] Influenza Virus Vaccine Recomb Quad IM, Preserv and ABX Free 18-64 YRS Unknown Completed [facility] Influenza Virus Vaccine Unknown Completed [facility] Influenza Virus Vaccine Unknown Completed [facility] Influenza Virus Vaccine Quad .5 mL IM 6+ MO (FLUZONE/FLULAVAL/F LUARIX) Unknown Completed [facility] Influenza Virus Vaccine Quad .5 mL IM 6+ MO (FLUZONE/FLULAVAL/F LUARIX) Unknown Completed [facility] TDAP (ADACEL) VACCINE Unknown Completed [facility] Influenza Virus Vaccine Recomb Quad IM, Preserv and ABX Free 18-64 YRS Unknown Completed [facility] Influenza Virus Vaccine Unknown Completed [facility] Influenza Virus Vaccine Unknown Completed [facility] Influenza Virus Vaccine Quad .5 mL IM 6+ MO (FLUZONE/FLULAVAL/F LUARIX) Unknown Completed [facility] Influenza Virus Vaccine Quad .5 mL IM 6+ MO (FLUZONE/FLULAVAL/F LUARIX) Unknown Completed [facility] TDAP (ADACEL) VACCINE Unknown Completed [facility] Influenza Virus Vaccine Recomb Quad IM, Preserv and ABX Free 18-64 YRS Unknown Completed [facility] Influenza Virus Vaccine Unknown Completed [facility] Influenza Virus Vaccine Unknown Completed [facility] Influenza Virus Vaccine Quad .5 mL IM 6+ MO (FLUZONE/FLULAVAL/F LUARIX) Unknown Completed [facility] Influenza Virus Vaccine Quad .5 mL IM 6+ MO (FLUZONE/FLULAVAL/F LUARIX) Unknown Completed [facility] TDAP (ADACEL) VACCINE Unknown Completed [facility] Influenza Virus Vaccine Recomb Quad IM, Preserv and ABX Free 18-64 YRS Unknown Completed [facility] Influenza Virus Vaccine Unknown Completed [facility] Influenza Virus Vaccine Unknown Completed [facility] Influenza Virus Vaccine Quad .5 mL IM 6+ MO (FLUZONE/FLULAVAL/F LUARIX) Unknown Completed [facility] Influenza Virus Vaccine Quad .5 mL IM 6+ MO (FLUZONE/FLULAVAL/F LUARIX) Unknown Completed [facility] TDAP (ADACEL) VACCINE Unknown Completed [facility] Influenza Virus Vaccine Recomb Quad IM, Preserv and ABX Free 18-64 YRS Unknown Completed [facility] Influenza Virus Vaccine Unknown Completed [facility] Influenza Virus Vaccine Unknown Completed [facility] Influenza Virus Vaccine Quad .5 mL IM 6+ MO (FLUZONE/FLULAVAL/F LUARIX) Unknown Completed [facility] Influenza Virus Vaccine Quad .5 mL IM 6+ MO (FLUZONE/FLULAVAL/F LUARIX) Unknown Completed [facility] TDAP (ADACEL) VACCINE Unknown Completed [facility] Influenza Virus Vaccine Recomb Quad IM, Preserv and ABX Free 18-64 YRS Unknown Completed [facility] Influenza Virus Vaccine Unknown Completed [facility] Influenza Virus Vaccine Unknown Completed [facility] Influenza Virus Vaccine Quad .5 mL IM 6+ MO (FLUZONE/FLULAVAL/F LUARIX) Unknown Completed [facility] Influenza Virus Vaccine Quad .5 mL IM 6+ MO (FLUZONE/FLULAVAL/F LUARIX) Unknown Completed [facility] TDAP (ADACEL) VACCINE Unknown Completed [facility] Influenza Virus Vaccine Recomb Quad IM, Preserv and ABX Free 18-64 YRS Unknown Completed [facility] Influenza Virus Vaccine Unknown Completed [facility] Influenza Virus Vaccine Unknown Completed [facility] Influenza Virus Vaccine Quad .5 mL IM 6+ MO (FLUZONE/FLULAVAL/F LUARIX) Unknown Completed [facility] Influenza Virus Vaccine Quad .5 mL IM 6+ MO (FLUZONE/FLULAVAL/F LUARIX) Unknown Completed [facility] TDAP (ADACEL) VACCINE Unknown Completed [facility] Influenza Virus Vaccine Recomb Quad IM, Preserv and ABX Free 18-64 YRS Unknown Completed [facility] Influenza Virus Vaccine Unknown Completed [facility] Influenza Virus Vaccine Unknown Completed [facility] Influenza Virus Vaccine Quad .5 mL IM 6+ MO (FLUZONE/FLULAVAL/F LUARIX) Unknown Completed [facility] Influenza Virus Vaccine Quad .5 mL IM 6+ MO (FLUZONE/FLULAVAL/F LUARIX) Unknown Completed [facility] TDAP (ADACEL) VACCINE Unknown Completed [facility] Influenza Virus Vaccine Recomb Quad IM, Preserv and ABX Free 18-64 YRS Unknown Completed [facility] Influenza Virus Vaccine Unknown Completed [facility] Influenza Virus Vaccine Unknown Completed [facility] Influenza Virus Vaccine Quad .5 mL IM 6+ MO (FLUZONE/FLULAVAL/F LUARIX) Unknown Completed [facility] Influenza Virus Vaccine Quad .5 mL IM 6+ MO (FLUZONE/FLULAVAL/F LUARIX) Unknown Completed [facility] TDAP (ADACEL) VACCINE Unknown Completed [facility] Influenza Virus Vaccine Recomb Quad IM, Preserv and ABX Free 18-64 YRS Unknown Completed [facility] Influenza Virus Vaccine Unknown Completed [facility] Influenza Virus Vaccine Unknown Completed [facility] Influenza Virus Vaccine Quad .5 mL IM 6+ MO (FLUZONE/FLULAVAL/F LUARIX) Unknown Completed [facility] Influenza Virus Vaccine Quad .5 mL IM 6+ MO (FLUZONE/FLULAVAL/F LUARIX) Unknown Completed [facility] TDAP (ADACEL) VACCINE Unknown Completed [facility] Influenza Virus Vaccine Recomb Quad IM, Preserv and ABX Free 18-64 YRS Unknown Completed [facility] Influenza Virus Vaccine Unknown Completed [facility] Influenza Virus Vaccine Quad .5 mL IM 6+ MO (FLUZONE/FLULAVAL/F LUARIX) Unknown Completed [facility] TDAP (ADACEL) VACCINE Unknown Completed [facility] Influenza Virus Vaccine Recomb Quad IM, Preserv and ABX Free 18-64 YRS Unknown Completed [facility] Influenza Virus Vaccine Unknown Completed [facility] Influenza Virus Vaccine Quad .5 mL IM 6+ MO (FLUZONE/FLULAVAL/F LUARIX) Unknown Completed [facility] TDAP (ADACEL) VACCINE Unknown Completed [facility] Influenza Virus Vaccine Recomb Quad IM, Preserv and ABX Free 18-64 YRS Unknown Completed [facility] Influenza Virus Vaccine Unknown Completed [facility] Influenza Virus Vaccine Quad .5 mL IM 6+ MO (FLUZONE/FLULAVAL/F LUARIX) Unknown Completed [facility] TDAP (ADACEL) VACCINE Unknown Completed [facility] Influenza Virus Vaccine Recomb Quad IM, Preserv and ABX Free 18-64 YRS Unknown Completed [facility] Influenza Virus Vaccine Unknown Completed [facility] Influenza Virus Vaccine Quad .5 mL IM 6+ MO (FLUZONE/FLULAVAL/F LUARIX) Unknown Completed [facility] TDAP (ADACEL) VACCINE Unknown Completed [facility] Influenza Virus Vaccine Recomb Quad IM, Preserv and ABX Free 18-64 YRS Unknown Completed [facility] Influenza Virus Vaccine Unknown Completed [facility] Influenza Virus Vaccine Quad .5 mL IM 6+ MO (FLUZONE/FLULAVAL/F LUARIX) Unknown Completed [facility] TDAP (ADACEL) VACCINE Unknown Completed [facility] Influenza Virus Vaccine Recomb Quad IM, Preserv and ABX Free 18-64 YRS Unknown Completed [facility] Influenza Virus Vaccine Unknown Completed [facility] Influenza Virus Vaccine Quad .5 mL IM 6+ MO (FLUZONE/FLULAVAL/F LUARIX) Unknown Completed [facility] TDAP (ADACEL) VACCINE Unknown Completed [facility] Influenza Virus Vaccine Recomb Quad IM, Preserv and ABX Free 18-64 YRS Unknown Completed [facility] Influenza Virus Vaccine Unknown Completed [facility] Influenza Virus Vaccine Quad .5 mL IM 6+ MO (FLUZONE/FLULAVAL/F LUARIX) Unknown Completed [facility] TDAP (ADACEL) VACCINE Unknown Completed [facility] Influenza Virus Vaccine Recomb Quad IM, Preserv and ABX Free 18-64 YRS Unknown Completed [facility] Influenza Virus Vaccine Unknown Completed [facility] Influenza Virus Vaccine Quad .5 mL IM 6+ MO (FLUZONE/FLULAVAL/F LUARIX) Unknown Completed [facility] TDAP (ADACEL) VACCINE Unknown Completed [facility] Influenza Virus Vaccine Recomb Quad IM, Preserv and ABX Free 18-64 YRS Unknown Completed [facility] Influenza Virus Vaccine Unknown Completed [facility] Influenza Virus Vaccine Quad .5 mL IM 6+ MO (FLUZONE/FLULAVAL/F LUARIX) Unknown Completed [facility] TDAP (ADACEL) VACCINE Unknown Completed [facility] Influenza Virus Vaccine Recomb Quad IM, Preserv and ABX Free 18-64 YRS Unknown Completed [facility] Influenza Virus Vaccine Unknown Completed [facility] Influenza Virus Vaccine Quad .5 mL IM 6+ MO (FLUZONE/FLULAVAL/F LUARIX) Unknown Completed [facility] TDAP (ADACEL) VACCINE Unknown Completed [facility] Influenza Virus Vaccine Recomb Quad IM, Preserv and ABX Free 18-64 YRS Unknown Completed [facility] Influenza Virus Vaccine Unknown Completed [facility] Influenza Virus Vaccine Quad .5 mL IM 6+ MO (FLUZONE/FLULAVAL/F LUARIX) Unknown Completed [facility] TDAP (ADACEL) VACCINE Unknown Completed [facility] Influenza Virus Vaccine Recomb Quad IM, Preserv and ABX Free 18-64 YRS Unknown Completed [facility] Influenza Virus Vaccine Unknown Completed [facility] Influenza Virus Vaccine Quad .5 mL IM 6+ MO (FLUZONE/FLULAVAL/F LUARIX) Unknown Completed [facility] TDAP (ADACEL) VACCINE Unknown Completed [facility] Influenza Virus Vaccine Recomb Quad IM, Preserv and ABX Free 18-64 YRS Unknown Completed [facility] Influenza Virus Vaccine Unknown Completed [facility] Influenza Virus Vaccine Quad .5 mL IM 6+ MO (FLUZONE/FLULAVAL/F LUARIX) Unknown Completed [facility] TDAP (ADACEL) VACCINE Unknown Completed [facility] Influenza Virus Vaccine Recomb Quad IM, Preserv and ABX Free 18-64 YRS Unknown Completed [facility] Influenza Virus Vaccine Unknown Completed [facility] Influenza Virus Vaccine Quad .5 mL IM 6+ MO (FLUZONE/FLULAVAL/F LUARIX) Unknown Completed [facility] TDAP (ADACEL) VACCINE Unknown Completed [facility] Influenza Virus Vaccine Recomb Quad IM, Preserv and ABX Free 18-64 YRS Unknown Completed [facility] Influenza Virus Vaccine Unknown Completed [facility] Influenza Virus Vaccine Quad .5 mL IM 6+ MO (FLUZONE/FLULAVAL/F LUARIX) Unknown Completed [facility] TDAP (ADACEL) VACCINE Unknown Completed [facility] Influenza Virus Vaccine Recomb Quad IM, Preserv and ABX Free 18-64 YRS Unknown Completed [facility] Influenza Virus Vaccine Unknown Completed [facility] Influenza Virus Vaccine Quad .5 mL IM 6+ MO (FLUZONE/FLULAVAL/F LUARIX) Unknown Completed [facility] TDAP (ADACEL) VACCINE Unknown Completed [facility] Influenza Virus Vaccine Recomb Quad IM, Preserv and ABX Free 18-64 YRS Unknown Completed [facility] Influenza Virus Vaccine Unknown Completed [facility] Influenza Virus Vaccine Quad .5 mL IM 6+ MO (FLUZONE/FLULAVAL/F LUARIX) Unknown Completed [facility] TDAP (ADACEL) VACCINE Unknown Completed [facility] Influenza Virus Vaccine Recomb Quad IM, Preserv and ABX Free 18-64 YRS Unknown Completed [facility] Influenza Virus Vaccine Unknown Completed [facility] Influenza Virus Vaccine Quad .5 mL IM 6+ MO (FLUZONE/FLULAVAL/F LUARIX) Unknown Completed [facility] TDAP (ADACEL) VACCINE Unknown Completed [facility] Influenza Virus Vaccine Recomb Quad IM, Preserv and ABX Free 18-64 YRS Unknown Completed [facility] Influenza Virus Vaccine Unknown Completed [facility] Influenza Virus Vaccine Quad .5 mL IM 6+ MO (FLUZONE/FLULAVAL/F LUARIX) Unknown Completed [facility] TDAP (ADACEL) VACCINE Unknown Completed [facility] Influenza Virus Vaccine Recomb Quad IM, Preserv and ABX Free 18-64 YRS Unknown Completed [facility] Influenza Virus Vaccine Unknown Completed [facility] Influenza Virus Vaccine Quad .5 mL IM 6+ MO (FLUZONE/FLULAVAL/F LUARIX) Unknown Completed [facility] TDAP (ADACEL) VACCINE Unknown Completed [facility] Influenza Virus Vaccine Recomb Quad IM, Preserv and ABX Free 18-64 YRS Unknown Completed [facility] Influenza Virus Vaccine Unknown Completed [facility] Influenza Virus Vaccine Quad .5 mL IM 6+ MO (FLUZONE/FLULAVAL/F LUARIX) Unknown Completed [facility] TDAP (ADACEL) VACCINE Unknown Completed [facility] Influenza Virus Vaccine Recomb Quad IM, Preserv and ABX Free 18-64 YRS Unknown Completed [facility] Influenza Virus Vaccine Unknown Completed [facility] Influenza Virus Vaccine Quad .5 mL IM 6+ MO (FLUZONE/FLULAVAL/F LUARIX) Unknown Completed [facility] TDAP (ADACEL) VACCINE Unknown Completed [facility] Influenza Virus Vaccine Recomb Quad IM, Preserv and ABX Free 18-64 YRS Unknown Completed [facility] Influenza Virus Vaccine Unknown Completed [facility] Influenza Virus Vaccine Quad .5 mL IM 6+ MO (FLUZONE/FLULAVAL/F LUARIX) Unknown Completed [facility] TDAP (ADACEL) VACCINE Unknown Completed [facility] Influenza Virus Vaccine Recomb Quad IM, Preserv and ABX Free 18-64 YRS Unknown Completed [facility] Influenza Virus Vaccine Unknown Completed [facility] Influenza Virus Vaccine Quad .5 mL IM 6+ MO (FLUZONE/FLULAVAL/F LUARIX) Unknown Completed [facility] TDAP (ADACEL) VACCINE Unknown Completed [facility] Influenza Virus Vaccine Recomb Quad IM, Preserv and ABX Free 18-64 YRS Unknown Completed [facility] Influenza Virus Vaccine Unknown Completed [facility] Influenza Virus Vaccine Quad .5 mL IM 6+ MO (FLUZONE/FLULAVAL/F LUARIX) Unknown Completed [facility] TDAP (ADACEL) VACCINE Unknown Completed [facility] Influenza Virus Vaccine Recomb Quad IM, Preserv and ABX Free 18-64 YRS Unknown Completed [facility] Influenza Virus Vaccine Unknown Completed [facility] Influenza Virus Vaccine Quad .5 mL IM 6+ MO (FLUZONE/FLULAVAL/F LUARIX) Unknown Completed [facility] TDAP (ADACEL) VACCINE Unknown Completed [facility] Influenza Virus Vaccine Recomb Quad IM, Preserv and ABX Free 18-64 YRS Unknown Completed [facility] Influenza Virus Vaccine Unknown Completed [facility] Influenza Virus Vaccine Quad .5 mL IM 6+ MO (FLUZONE/FLULAVAL/F LUARIX) Unknown Completed [facility] TDAP (ADACEL) VACCINE Unknown Completed [facility] Influenza Virus Vaccine Recomb Quad IM, Preserv and ABX Free 18-64 YRS Unknown Completed [facility] Influenza Virus Vaccine Unknown Completed [facility] Influenza Virus Vaccine Quad .5 mL IM 6+ MO (FLUZONE/FLULAVAL/F LUARIX) Unknown Completed [facility] TDAP (ADACEL) VACCINE Unknown Completed [facility] Influenza Virus Vaccine Recomb Quad IM, Preserv and ABX Free 18-64 YRS Unknown Completed [facility] Influenza Virus Vaccine Unknown Completed [facility] Influenza Virus Vaccine Quad .5 mL IM 6+ MO (FLUZONE/FLULAVAL/F LUARIX) Unknown Completed [facility] TDAP (ADACEL) VACCINE Unknown Completed [facility] Influenza Virus Vaccine Recomb Quad IM, Preserv and ABX Free 18-64 YRS Unknown Completed [facility] Influenza Virus Vaccine Unknown Completed [facility] Influenza Virus Vaccine Quad .5 mL IM 6+ MO (FLUZONE/FLULAVAL/F LUARIX) Unknown Completed [facility] TDAP (ADACEL) VACCINE Unknown Completed [facility] Influenza Virus Vaccine Recomb Quad IM, Preserv and ABX Free 18-64 YRS Unknown Completed [facility] Influenza Virus Vaccine Unknown Completed [facility] Influenza Virus Vaccine Quad .5 mL IM 6+ MO (FLUZONE/FLULAVAL/F LUARIX) Unknown Completed [facility] TDAP (ADACEL) VACCINE Unknown Completed [facility] Influenza Virus Vaccine Recomb Quad IM, Preserv and ABX Free 18-64 YRS Unknown Completed [facility] Influenza Virus Vaccine Unknown Completed [facility] Influenza Virus Vaccine Quad .5 mL IM 6+ MO (FLUZONE/FLULAVAL/F LUARIX) Unknown Completed [facility] TDAP (ADACEL) VACCINE Unknown Completed [facility] Influenza Virus Vaccine Recomb Quad IM, Preserv and ABX Free 18-64 YRS Unknown Completed [facility] Influenza Virus Vaccine Unknown Completed [facility] Influenza Virus Vaccine Quad .5 mL IM 6+ MO (FLUZONE/FLULAVAL/F LUARIX) Unknown Completed [facility] TDAP (ADACEL) VACCINE Unknown Completed [facility] Influenza Virus Vaccine Recomb Quad IM, Preserv and ABX Free 18-64 YRS Unknown Completed [facility] Influenza Virus Vaccine Unknown Completed [facility] Influenza Virus Vaccine Quad .5 mL IM 6+ MO (FLUZONE/FLULAVAL/F LUARIX) Unknown Completed [facility] TDAP (ADACEL) VACCINE Unknown Completed [facility] Influenza Virus Vaccine Recomb Quad IM, Preserv and ABX Free 18-64 YRS Unknown Completed [facility] Influenza Virus Vaccine Unknown Completed [facility] Influenza Virus Vaccine Quad .5 mL IM 6+ MO (FLUZONE/FLULAVAL/F LUARIX) Unknown Completed [facility] TDAP (ADACEL) VACCINE Unknown Completed [facility] Influenza Virus Vaccine Recomb Quad IM, Preserv and ABX Free 18-64 YRS Unknown Completed [facility] Influenza Virus Vaccine Unknown Completed [facility] Influenza Virus Vaccine Quad .5 mL IM 6+ MO (FLUZONE/FLULAVAL/F LUARIX) Unknown Completed [facility] TDAP (ADACEL) VACCINE Unknown Completed [facility] Influenza Virus Vaccine Quad .5 mL IM 6+ MO (FLUZONE/FLULAVAL/F LUARIX) Unknown Completed [facility] TDAP (ADACEL) VACCINE Unknown Completed [facility] Influenza Virus Vaccine Quad .5 mL IM 6+ MO (FLUZONE/FLULAVAL/F LUARIX) Unknown Completed [facility] TDAP (ADACEL) VACCINE Unknown Completed [facility] Influenza Virus Vaccine Quad .5 mL IM 6+ MO (FLUZONE/FLULAVAL/F LUARIX) Unknown Completed [facility] TDAP (ADACEL) VACCINE Unknown Completed [facility] Influenza Virus Vaccine Quad .5 mL IM 6+ MO (FLUZONE/FLULAVAL/F LUARIX) Unknown Completed [facility] TDAP (ADACEL) VACCINE Unknown Completed [facility] Influenza Virus Vaccine Quad .5 mL IM 6+ MO (FLUZONE/FLULAVAL/F LUARIX) Unknown Completed [facility] TDAP (ADACEL) VACCINE Unknown Completed [facility] Influenza Virus Vaccine Quad .5 mL IM 6+ MO (FLUZONE/FLULAVAL/F LUARIX) Unknown Completed [facility] TDAP (ADACEL) VACCINE Unknown Completed [facility] Influenza Virus Vaccine Quad .5 mL IM 6+ MO (FLUZONE/FLULAVAL/F LUARIX) Unknown Completed [facility] TDAP (ADACEL) VACCINE Unknown Completed [facility] Influenza Virus Vaccine Quad .5 mL IM 6+ MO (FLUZONE/FLULAVAL/F LUARIX) Unknown Completed [facility] TDAP (ADACEL) VACCINE Unknown Completed [facility] Influenza Virus Vaccine Quad .5 mL IM 6+ MO (FLUZONE/FLULAVAL/F LUARIX) Unknown Completed [facility] TDAP (ADACEL) VACCINE Unknown Completed [facility] Influenza Virus Vaccine Recomb Quad IM, Preserv and ABX Free 18-64 YRS Unknown Completed [facility] Influenza Virus Vaccine Unknown Completed [facility] Influenza Virus Vaccine Unknown Completed [facility] Influenza Virus Vaccine Quad IM, Preserv and ABX Free 6 MO-64 YRS (FLUCELVAX) Unknown Completed [facility] Influenza Virus Vaccine Quad .5 mL IM 6+ MO (FLUZONE/FLULAVAL/F LUARIX) Unknown Completed [facility] Influenza Virus Vaccine Quad .5 mL IM 6+ MO (FLUZONE/FLULAVAL/F LUARIX) Unknown Completed [facility] Influenza Virus Vaccine Quad .5 mL IM 6+ MO (FLUZONE/FLULAVAL/F LUARIX) Unknown Completed [facility] TDAP (ADACEL) VACCINE Unknown Completed [facility] Influenza Virus Vaccine Recomb Quad IM, Preserv and ABX Free 18-64 YRS Unknown Completed [facility] Influenza Virus Vaccine Unknown Completed [facility] Influenza Virus Vaccine Unknown Completed [facility] Influenza Virus Vaccine Quad IM, Preserv and ABX Free 6 MO-64 YRS (FLUCELVAX) Unknown Completed [facility] Influenza Virus Vaccine Quad .5 mL IM 6+ MO (FLUZONE/FLULAVAL/F LUARIX) Unknown Completed [facility] Influenza Virus Vaccine Quad .5 mL IM 6+ MO (FLUZONE/FLULAVAL/F LUARIX) Unknown Completed [facility] Vital Signs Vital Name Observation Time Observation Value Comments S ource Systolic blood pressure 2023-05-19 17:24:00 129 mm[Hg] [facility] Diastolic blood pressure 2023-05-19 17:24:00 83 mm[Hg] [facility] Heart rate 2023-05-19 17:24:00 77 /min [facility] Respiratory rate 2023-05-19 17:24:00 15 /min [facility] Oxygen saturation in Arterial blood by Pulse oximetry 2023-05-19 17:24:00 100 /min [facility] Body temperature 2023-05-19 14:50:[address] [facility] Body height 2023-05-19 14:50:00 154.9 cm [facility] Body weight 2023-05-19 14:50:00 58.968 kg [facility] BMI 2023-05-19 14:50:00 24.56 kg/m2 [facility] Systolic blood pressure 2023-01-15 16:56:00 132 mm[Hg] [facility] Diastolic blood pressure 2023-01-15 16:56:00 91 mm[Hg] [facility] Heart rate 2023-01-15 16:56:00 67 /min [facility] Body temperature 2023-01-15 16:56:[address] [facility] Respiratory rate 2023-01-15 16:56:00 20 /min [facility] Oxygen saturation in Arterial blood by Pulse oximetry 2023-01-15 16:56:00 100 /min [facility] Body height 2023-01-12 09:05:00 154.9 cm [facility] Body weight 2023-01-12 09:05:00 58.968 kg [facility] BMI 2023-01-12 09:05:00 24.56 kg/m2 [facility] Systolic blood pressure 2022-11-21 21:40:00 122 mm[Hg] [facility] Diastolic blood pressure 2022-11-21 21:40:00 90 mm[Hg] [facility] Heart rate 2022-11-21 21:40:00 92 /min [facility] Respiratory rate 2022-11-21 21:40:00 16 /min [facility] Oxygen saturation in Arterial blood by Pulse oximetry 2022-11-21 21:40:00 99 /min [facility] [facility] Body temperature 2022-11-21 18:07:[address] [facility] Body weight 2022-11-21 18:07:00 68.04 kg [facility] BMI 2022-11-21 18:07:00 28.34 kg/m2 [facility] Systolic blood pressure 2022-09-05 17:22:00 139 mm[Hg] [facility] Diastolic blood pressure 2022-09-05 17:22:00 91 mm[Hg] [facility] Heart rate 2022-09-05 17:22:00 120 /min [facility] Respiratory rate 2022-09-05 17:22:00 18 /min [facility] Oxygen saturation in Arterial blood by Pulse oximetry 2022-09-05 17:22:00 99 /min [facility] Body temperature 2022-09-05 13:43:00 37.11 [facility] Body weight 2022-09-05 13:43:00 68.04 kg [facility] BMI 2022-09-05 13:43:00 28.34 kg/m2 [facility] Systolic blood pressure 2022-08-01 00:49:00 138 mm[Hg] [facility] Diastolic blood pressure 2022-08-01 00:49:00 104 mm[Hg] [facility] Heart rate 2022-08-01 00:49:00 108 /min [facility] Respiratory rate 2022-08-01 00:49:00 18 /min [facility] Oxygen saturation in Arterial blood by Pulse oximetry 2022-08-01 00:49:00 99 /min [facility] Body temperature 2022-07-31 22:52:00 37.11 [facility] Body height 2022-07-31 22:52:00 154.9 cm [facility] Body weight 2022-07-31 22:52:00 68.04 kg [facility] BMI 2022-07-31 22:52:00 28.34 kg/m2 [facility] Systolic blood pressure 2022-07-15 15:32:00 130 mm[Hg] [facility] Diastolic blood pressure 2022-07-15 15:32:00 90 mm[Hg] [facility] Heart rate 2022-07-15 15:31:00 81 /min [facility] Body temperature 2022-07-15 15:31:[address] [facility] Respiratory rate 2022-07-15 15:31:00 16 /min [facility] Body weight 2022-07-15 15:31:00 68.493 kg [facility] BMI 2022-07-15 15:31:00 28.53 kg/m2 [facility] Oxygen saturation in Arterial blood by Pulse oximetry 2022-07-15 15:31:00 99 /min [facility] Systolic blood pressure 2022-06-23 15:26:00 111 mm[Hg] [facility] Diastolic blood pressure 2022-06-23 15:26:00 75 mm[Hg] [facility] Heart rate 2022-06-23 15:26:00 108 /min [facility] Body temperature 2022-06-23 15:26:[address] [facility] Respiratory rate 2022-06-23 15:26:00 18 /min [facility] Body height 2022-06-23 15:26:00 154.9 cm [facility] Body weight 2022-06-23 15:26:00 71.385 kg [facility] BMI 2022-06-23 15:26:00 29.74 kg/m2 [facility] Oxygen saturation in Arterial blood by Pulse oximetry 2022-06-23 15:26:00 99 /min [facility] Systolic blood pressure 2022-05-05 22:05:00 126 mm[Hg] [facility] Diastolic blood pressure 2022-05-05 22:05:00 75 mm[Hg] [facility] Heart rate 2022-05-05 22:05:00 99 /[facility] Respiratory rate 2022-05-05 22:05:00 16 /min [facility] Oxygen saturation in Arterial blood by Pulse oximetry 2022-05-05 22:05:00 99 /min [facility] Body temperature 2022-05-05 18:24:[address] [facility] Body height 2022-05-05 18:24:00 154.9 cm [facility] Body weight 2022-05-05 18:24:00 54.432 kg [facility] BMI 2022-05-05 18:24:00 22.67 kg/m2 [facility] Systolic blood pressure 2022-04-26 14:28:00 135 mm[Hg] [facility] Diastolic blood pressure 2022-04-26 14:28:00 95 mm[Hg] [facility] Heart rate 2022-04-26 14:28:00 93 /min [facility] Body temperature 2022-04-26 14:28:[address] [facility] Respiratory rate 2022-04-26 14:28:00 18 /min [facility] Body height 2022-04-26 14:28:00 154.9 cm [facility] Body weight 2022-04-26 14:28:00 54.432 kg [facility] BMI 2022-04-26 14:28:00 22.67 kg/m2 [facility] Oxygen saturation in Arterial blood by Pulse oximetry 2022-04-26 14:28:00 100 /min [facility] Systolic blood pressure 2022-04-26 00:21:00 151 mm[Hg] [facility] Diastolic blood pressure 2022-04-26 00:21:00 98 mm[Hg] [facility] Heart rate 2022-04-26 00:21:00 98 /min [facility] Body temperature 2022-04-26 00:21:[address] [facility] Respiratory rate 2022-04-26 00:21:00 18 /min [facility] Body height 2022-04-26 00:21:00 154.9 cm [facility] Body weight 2022-04-26 00:21:00 54.432 kg [facility] BMI 2022-04-26 00:21:00 22.67 kg/m2 [facility] Oxygen saturation in Arterial blood by Pulse oximetry 2022-04-26 00:21:00 100 /min [facility] Systolic blood pressure 2022-04-09 14:39:00 122 mm[Hg] [facility] Diastolic blood pressure 2022-04-09 14:39:00 84 mm[Hg] [facility] Heart rate 2022-04-09 14:39:00 96 /[facility] height 2022-04-09 14:39:00 154.9 cm [facility] Body weight 2022-04-09 14:39:00 60.328 kg [facility] BMI 2022-04-09 14:39:00 25.13 kg/m2 [facility] Oxygen saturation in Arterial blood by Pulse oximetry 2022-04-09 14:39:00 98 /min [facility] Systolic blood pressure 2022-04-07 22:43:36 131 mm[Hg] [facility] Diastolic blood pressure 2022-04-07 22:43:36 83 mm[Hg] [facility] Heart rate 2022-04-07 22:43:36 113 /min [facility] Respiratory rate 2022-04-07 22:43:36 18 /min [facility] Oxygen saturation in Arterial blood by Pulse oximetry 2022-04-07 22:43:36 97 /min [facility] Body temperature 2022-04-07 19:41:[address] [facility] Body height 2022-04-07 19:41:00 154.9 cm [facility] Body weight 2022-04-07 19:41:00 60.328 kg [facility] BMI 2022-04-07 19:41:00 25.13 kg/m2 [facility] Systolic blood pressure 2022-03-24 19:00:00 125 mm[Hg] [facility] Diastolic blood pressure 2022-03-24 19:00:00 86 mm[Hg] [facility] Heart rate 2022-03-24 19:00:00 93 /min [facility] Respiratory rate 2022-03-24 19:00:00 17 /min [facility] Oxygen saturation in Arterial blood by Pulse oximetry 2022-03-24 19:00:00 97 /min [facility] Body temperature 2022-03-24 13:33:[address] [facility] Systolic blood pressure 2022-03-15 19:23:00 128 mm[Hg] [facility] Diastolic blood pressure 2022-03-15 19:23:00 89 mm[Hg] [facility] Heart rate 2022-03-15 19:23:00 104 /min [facility] Body weight 2022-03-15 19:23:00 60.328 kg [facility] BMI 2022-03-15 19:23:00 25.13 kg/m2 [facility] Oxygen saturation in Arterial blood by Pulse oximetry 2022-03-15 19:23:00 98 /min [facility] Systolic blood pressure 2022-03-15 15:02:00 115 mm[Hg] [facility] Diastolic blood pressure 2022-03-15 15:02:00 70 mm[Hg] [facility] Heart rate 2022-03-15 15:02:00 85 /min [facility] Respiratory rate 2022-03-15 15:02:00 20 /min [facility] Oxygen saturation in Arterial blood by Pulse oximetry 2022-03-15 15:02:00 99 /min [facility] Body temperature 2022-03-15 13:38:[address] [facility] Body height 2022-03-15 13:38:00 154.9 cm [facility] Body weight 2022-03-15 13:38:00 54.432 kg [facility] BMI 2022-03-15 13:38:00 22.67 kg/m2 [facility] Systolic blood pressure 2022-03-11 16:30:00 124 mm[Hg] [facility] Diastolic blood pressure 2022-03-11 16:30:00 88 mm[Hg] [facility] Heart rate 2022-03-11 16:30:00 93 /min [facility] Body temperature 2022-03-11 16:30:[address] [facility] Respiratory rate 2022-03-11 16:30:00 14 /min [facility] Oxygen saturation in Arterial blood by Pulse oximetry 2022-03-11 16:30:00 100 /min [facility] Body height 2022-03-11 14:19:00 154.9 cm [facility] Body weight 2022-03-11 14:19:00 58.968 kg [facility] BMI 2022-03-11 14:19:00 24.56 kg/m2 [facility] Systolic blood pressure 2022-02-27 14:14:00 140 mm[Hg] [facility] Diastolic blood pressure 2022-02-27 14:14:00 90 mm[Hg] [facility] Heart rate 2022-02-27 14:14:00 103 /min [facility] Body height 2022-02-27 14:14:00 154.9 cm [facility] Body weight 2022-02-27 14:14:00 59.194 kg [facility] BMI 2022-02-27 14:14:00 24.66 kg/m2 [facility] Oxygen saturation in Arterial blood by Pulse oximetry 2022-02-27 14:14:00 100 /min [facility] Systolic blood pressure 2022-02-27 13:19:00 131 mm[Hg] [facility] Diastolic blood pressure 2022-02-27 13:19:00 86 mm[Hg] [facility] Heart rate 2022-02-27 13:19:00 102 /min [facility] Body temperature 2022-02-27 13:19:[address] [facility] Body height 2022-02-27 13:19:00 154.9 cm [facility] Body weight 2022-02-27 13:19:00 58.968 kg [facility] BMI 2022-02-27 13:19:00 24.56 [facility]2 [facility] in Arterial blood by Pulse oximetry 2022-02-27 13:19:00 99 /min [facility] Systolic blood pressure 2022-02-21 08:06:00 135 mm[Hg] [facility] Diastolic blood pressure 2022-02-21 08:06:00 97 mm[Hg] [facility] Heart rate 2022-02-21 08:06:00 98 /min [facility] Respiratory rate 2022-02-21 08:06:00 16 /min [facility] Oxygen saturation in Arterial blood by Pulse oximetry 2022-02-21 08:06:00 97 /min [facility] Body temperature 2022-02-21 06:16:[address] [facility] Body height 2022-02-21 06:16:00 154.9 cm [facility] Body weight 2022-02-21 06:16:00 60.963 kg [facility] BMI 2022-02-21 06:16:00 25.39 kg/m2 [facility] Systolic blood pressure 2022 20:08:00 136 mm[Hg] [facility] Diastolic blood pressure 2022 20:08:00 96 mm[Hg] [facility] Heart rate 2022 20:08:00 100 /min [facility] Respiratory rate 2022 20:08:00 20 /min [facility] Oxygen saturation in Arterial blood by Pulse oximetry 2022 20:08:00 98 /min [facility] Body temperature 2022 16:56:[address] [facility] Body weight 2022 16:56:00 54.432 kg [facility] BMI 2022 16:56:00 22.67 kg/m2 [facility] Systolic blood pressure 2022-02-05 14:31:00 128 mm[Hg] [facility] Diastolic blood pressure 2022-02-05 14:31:00 84 mm[Hg] [facility] Heart rate 2022-02-05 14:31:00 86 /min [facility] Body temperature 2022-02-05 14:31:00 37.89 [facility] Respiratory rate 2022-02-05 14:31:00 18 /min [facility] Body height 2022-02-05 14:31:00 154.9 cm [facility] Body weight 2022-02-05 14:31:00 54.432 kg [facility] BMI 2022-02-05 14:31:00 22.67 kg/m2 [facility] Oxygen saturation in Arterial blood by Pulse oximetry 2022-02-05 14:31:00 98 /min [facility] Systolic blood pressure 2022-01-18 14:50:00 144 mm[Hg] [facility] Diastolic blood pressure 2022-01-18 14:50:00 92 mm[Hg] [facility] Heart rate 2022-01-18 14:50:00 94 /min [facility] Respiratory rate 2022-01-18 14:50:00 20 /min [facility] Oxygen saturation in Arterial blood by Pulse oximetry 2022-01-18 14:50:00 99 /min [facility] Body weight 2022-01-18 10:18:00 54.432 kg [facility] BMI 2022-01-18 10:18:00 22.67 kg/m2 [facility] Body temperature 2022-01-18 10:15:00 36.72 [facility] Systolic blood pressure 2022-01-15 15:48:26 125 mm[Hg] [facility] Diastolic blood pressure 2022-01-15 15:48:26 85 mm[Hg] [facility] Heart rate 2022-01-15 15:48:26 95 /min [facility] Respiratory rate 2022-01-15 15:48:26 18 /min [facility] Oxygen saturation in Arterial blood by Pulse oximetry 2022-01-15 15:48:26 98 /min [facility] Body temperature 2022-01-15 13:32:00 37.11 [facility] Body height 2022-01-15 13:32:00 154.9 cm [facility] Body weight 2022-01-15 13:32:00 54.432 kg [facility] BMI 2022-01-15 13:32:00 22.67 kg/m2 [facility] Systolic blood pressure 2022-01-09 00:37:11 127 mm[Hg] [facility] Diastolic blood pressure 2022-01-09 00:37:11 90 mm[Hg] [facility] Heart rate 2022-01-09 00:37:11 94 /min [facility] Body temperature 2022-01-09 00:37:[address] [facility] Respiratory rate 2022-01-09 00:37:11 16 /min [facility] Oxygen saturation in Arterial blood by Pulse oximetry 2022-01-09 00:37:11 97 /min [facility] Body height 2022-01-08 23:03:00 154.9 cm [facility] Body weight 2022-01-08 23:03:00 58.06 kg [facility] BMI 2022-01-08 23:03:00 24.19 kg/m2 [facility] Systolic blood pressure 2021-12-12 18:00:00 126 mm[Hg] [facility] Diastolic blood pressure 2021-12-12 18:00:00 87 mm[Hg] [facility] Heart rate 2021-12-12 18:00:00 86 /min [facility] Body temperature 2021-12-12 18:00:[address] [facility] Respiratory rate 2021-12-12 18:00:00 18 /min [facility] Body height 2021-12-12 18:00:00 154.9 cm [facility] Body weight 2021-12-12 18:00:00 57.153 kg [facility] BMI 2021-12-12 18:00:00 23.81 kg/m2 [facility] Systolic blood pressure 2023-01-14 16:32:00 138 mm[Hg] [facility] Diastolic blood pressure 2023-01-14 16:32:00 84 mm[Hg] [facility] Heart rate 2023-01-14 16:32:00 67 /min [facility] Body temperature 2023-01-14 16:32:[address] [facility] Respiratory rate 2023-01-14 16:32:00 16 /min [facility] Oxygen saturation in Arterial blood by Pulse oximetry 2023-01-14 16:32:00 99 /min [facility] Body height 2023-01-12 09:05:00 154.9 cm [facility] Body weight 2023-01-12 09:05:00 58.968 kg [facility] BMI 2023-01-12 09:05:00 24.56 kg/m2 [facility] Procedures Procedure Date / Time Performed Performing Clinician Source COMP. METABOLIC PANEL (41969) 2023-05-19 17:22:[address] [facility] CT ABDOMEN PELVIS W CONTRAST 2023-05-19 15:59:[address] [facility] LIPASE 2023-05-19 15:43:00 Tod Sellers Un [facility] CBC WITH DIFF 2023-05-19 15:43:00 [facility] 2023-05-19 15:32:00 Tod Sellers Un [facility] POCT TEST 2023-05-19 15:31:00 Anna Marie Sellers [facility] CONSENT/REFUSAL FOR DIAGNOSIS AND TREATMENT 2023-05-19 14:37:15 Doctor Unassigned, [place] [facility] PHOSPHORUS 2023-01-15 08:15:00 Benita Rockwell Un [facility] MAGNESIUM 2023-01-15 08:15:00 Benita Rockwell Un [facility] BASIC METABOLIC PANEL (NA, K, CL, CO2, GLUCOSE, BUN, CREATININE, CA) 2023-01-15 08:15:[address] [facility] CBC WITH DIFF 2023-01-15 08:15:00 Benita Rockwell [facility] PROTHROMBIN TIME / INR 2023-01-15 08:15:[address] [facility] MAGNESIUM 2023-01-14 10:14:00 Benita Rockwell Un [facility] PHOSPHORUS 2023-01-14 10:14:00 Benita Rockwell Un [facility] BASIC METABOLIC PANEL (NA, K, CL, CO2, GLUCOSE, BUN, CREATININE, CA) 2023-01-14 10:14:[address] [facility] CBC WITH DIFF 2023-01-14 10:14:00 Benita Rockwell [facility] PHOSPHORUS 2023-01-14 10:14:00 Benita Rockwell Un [facility] MAGNESIUM 2023-01-14 10:14:00 Benita Rockwell Un [facility] BASIC METABOLIC PANEL (NA, K, CL, CO2, GLUCOSE, BUN, CREATININE, CA) 2023-01-14 10:14:[address] [facility] CBC WITH DIFF 2023-01-14 10:14:00 Benita Rockwell [facility] CBC WITH DIFF 2023-01-13 10:45:[facility] (NA, K, CL, CO2, GLUCOSE, BUN, CREATININE, CA) 2023-01-13 10:45:[address] [facility] MAGNESIUM 2023-01-13 10:45:00 Vaishnavi, [facility] PHOSPHORUS 2023-01-13 10:45:[address] [facility] HEPATIC FUNCTION PANEL (28703) (ALB,T.PRO,BILI T,BU/BC,ALT,AST,ALK PHOS) 2023-01-13 10:45:[address] [facility] PHOSPHORUS 2023-01-13 10:45:[address] [facility] MAGNESIUM 2023-01-13 10:45:00 Vaishnavi, [facility] HEPATIC FUNCTION PANEL ([id number]) (ALB,T.PRO,BILI T,BU/BC,ALT,AST,ALK PHOS) 2023-01-13 10:45:00 Vaishnavi, [facility] BASIC METABOLIC PANEL (NA, K, CL, CO2, GLUCOSE, BUN, CREATININE, CA) 2023-01-13 10:45:[address] [facility] CBC WITH DIFF 2023-01-13 10:45:[address] [facility] GLUCOSE BODY FLUID 2023-01-12 20:44:[address] [facility] BODY FLUID MANUAL DIFF 2023-01-12 20:44:00 VaishnaviClayton dailey [facility] T.PROTEIN BODY FLUID 2023-01-12 20:44:[address] [facility] ASPIRATE OR ABSCESS CULTURE(AEROBIC/ANAEROBIC ) 2023-01-12 20:44:00 Vaishnavi, [facility]DH TOTAL BODY FLUID 2023-01-12 20:44:[address] [facility] GLUCOSE BODY FLUID 2023-01-12 20:44:00 VaishnaviRodolfo dailey [facility] T.PROTEIN BODY FLUID 2023-01-12 20:44:[address] [facility] BODY FLUID DIRECT COUNT 2023-01-12 20:44:00 Kaycee Riggins [facility] ASPIRATE OR ABSCESS CULTURE(AEROBIC/ANAEROBIC ) 2023-01-12 20:44:00 Vaishnavi [facility] TOTAL BODY FLUID 2023-01-12 20:44:00 Vaishnavi, [facility] PROTHROMBIN TIME / INR 2023-01-12 08:13:00 VaishnaviClayton wade [facility] PROTHROMBIN TIME / INR 2023-01-12 08:13:00 VaishnaviClayton dailey [facility] COMP. METABOLIC PANEL (28389) 2023-01-12 03:49:[address]ía [facility] COMP. METABOLIC PANEL (44063) 2023-01-12 03:49:[address] [facility] CT ABDOMEN PELVIS W CONTRAST 2023-01-12 03:32:06 Ciera García [facility] CT ABDOMEN PELVIS W CONTRAST 2023-01-12 03:32:06 Ciera García [facility] POCT TEST 2023-01-12 03:02:00 Jessica García [facility] POCT TEST 2023-01-12 03:02:00 Jessica García [facility] URINALYSIS 2023-01-12 02:56:00 Kenneth García [facility] LIPASE 2023-01-12 02:56[facility] 2023-01-12 02:56:00 Ciera García [facility] CBC WITH DIFF 2023-01-12 02:56[facility]00 [facility] ORANGE 2023-01-12 02:56:00 Aroldo Siddiqui [facility] EXTRA TUBE LAV 2023-01-12 02:56:00 Aroldo Siddiqui [facility] LIPASE 2023-01-12 02:56:00 Kenneth García [facility] TOTAL BETA HCG ASSAY 2023-01-12 02:56[facility] 2023-01-12 02:56:00 Kenneth García [facility] URINALYSIS 2023-01-12 02:56:00 Kenneth García [facility] EXTRA TUBE LAV 2023-01-12 02:56:00 Aroldo Siddiqui [facility] EXTRA TUBE ORANGE 2023-01-12 02:56:00 Aroldo Siddiqui [facility] CONSENT/REFUSAL FOR DIAGNOSIS AND TREATMENT 2023-01-12 01:46:10 Doctor Unassigned, [place] [facility] CONSENT/REFUSAL FOR DIAGNOSIS AND TREATMENT 2023-01-12 01:46:10 Doctor Unassigned, [place] [facility] ASSIGNMENT OF BENEFITS 2022-11-21 19:49:02 Docto r Unassigned, [place] [facility] ASSIGNMENT OF BENEFITS 2022-11-21 19:49:02 Docto r Unassigned, [place] [facility] CONSENT/REFUSAL FOR DIAGNOSIS AND TREATMENT 2022-11-21 18:03:25 Doctor Unassigned, [place] [facility] CONSENT/REFUSAL FOR DIAGNOSIS AND TREATMENT 2022-11-21 18:03:25 Doctor Unassigned, Dupree [facility] EMERGENCY SERVICES AGREEMENTS AND AUTHORIZATIONS 2022-11-21 05:01:00 Doctor Unassigned, Dupree [facility] CONSENT/REFUSAL FOR DIAGNOSIS AND TREATMENT 2022-09-05 13:42:02 Doctor Unassigned, Dupree [facility] LIPASE 2022-07-31 23:13:00 [facility] 2022-07-31 23:13:[address] [facility] COMP. METABOLIC PANEL ([id number]) 2022-07-31 23:13:00 Osiris [facility]em [facility] CBC WITH DIFF 2022-07-31 23:13:00 Osiris [facility] CONSENT/REFUSAL FOR DIAGNOSIS AND TREATMENT 2022-07-31 22:49:17 Doctor Unassigned, Dupree [facility] XR ANKLE 3+ VW RIGHT 2022-07-15 16:00:[address] [facility] XR FOOT 3+ VW RIGHT 2022-07-15 16:00:[address] [facility] XR FOOT 3+ VW RIGHT 2022-07-15 16:00:00 Jenifer Kaur [facility] PATIENT FINANCIAL POLICY 2022-07-15 15:25:53 Doctor Unassigned, Dupree [facility] POCT MOLECULAR STREP 2022-06-23 16:06:00 Unknown, Attignacio alexander [facility] ASSIGNMENT OF BENEFITS 2022-06-23 15:18:28 Nagito r Unassigned, Dupree [facility] COMP. METABOLIC PANEL (21932) 2022-05-05 19:14:[address] [facility] CBC WITH DIFF 2022-05-05 19:14:00 Karon Norton [facility] POCT TEST 2022-05-05 19:00:[address] [facility] URINALYSIS 2022-05-05 18:58:00 Karon Norton [facility] CT ABDOMEN PELVIS WO CONTRAST 2022-04-26 15:11:[address] [facility] COMP. METABOLIC PANEL ([id number]) 2022-04-26 14:49:[address] [facility] CBC WITH DIFF 2022-04-26 14:49:00 Zion Bridges [facility] URINALYSIS 2022-04-26 14:49:00 [facility] POCT TEST 2022-04-26 14:45:[address] [facility] CONSENT/REFUSAL FOR DIAGNOSIS AND TREATMENT 2022-04-26 14:22:29 Doctor Unassigned, Dupree [facility] POCT TEST 2022-04-26 01:22:[address] [facility] ASSIGNMENT OF BENEFITS 2022-04-26 00:54:02 Docto r Unassigned, Dupree [facility] URINALYSIS 2022-04-26 00:45:00 Zion [facility] CONSENT/REFUSAL FOR DIAGNOSIS AND TREATMENT 2022-04-26 00:16:47 Doctor Unassigned, Dupree [facility] BASIC METABOLIC PANEL (NA, K, CL, CO2, GLUCOSE, BUN, CREATININE, CA) 2022-04-07 22:35:[address] [facility] CBC WITH DIFF 2022-04-07 22:35:00 Olamide Garvin [facility] URINALYSIS 2022-04-07 21:36:00 Olamide Garvin [facility] URINE DRUG (IMMUNOASSAY) - COMPREHENSIVE DRUG SCREEN W/O REFLEX 2022-04-07 21:36:[address] [facility] CONSENT/REFUSAL FOR DIAGNOSIS AND TREATMENT 2022-04-07 19:29:15 Doctor Unassigned, Dupree [facility] POCT TEST 2022-03-24 14:07:[address] [facility] CONSENT/REFUSAL FOR DIAGNOSIS AND TREATMENT 2022-03-24 13:27:20 Doctor Unassigned, Dupree [facility] CT ABDOMEN PELVIS WO CONTRAST 2022-03-15 14:09:[address] [facility] URINALYSIS 2022-03-15 13:53:00 [facility] 2022-03-15 13:52:[address] [facility] CONSENT/REFUSAL FOR DIAGNOSIS AND TREATMENT 2022-03-15 13:37:02 Doctor Unassigned, Dupree [facility] POCT TEST 2022-03-11 14:59:[address] [facility] FLU VACC ([id number]), 6 MO-64 YRS, .5ML, IM, QUAD (FLUCELVAX) 2022-02-27 13:34:[address] [facility] NOTICE OF PRIVACY PRACTICES 2022-02-21 06:06:30 Doctor Unassigned, Dupree [facility] CONSENT/REFUSAL FOR DIAGNOSIS AND TREATMENT 2022-02-21 06:03:41 Doctor Unassigned, Dupree [facility] XR ANKLE <3 VW RIGHT 2022 17:56:[address] [facility] CT ABDOMEN PELVIS W CONTRAST 2022 17:44:[address] [facility] CT TRAUMA CERVICAL SPINE WO CONTRAST 2022 17:43:[address] [facility] POCT TEST 2022 17:27:00 Zoie Hamilton ra [facility] COMP. METABOLIC PANEL ([id number]) 2022 17:17:[address] [facility] CBC WITH DIFF 2022 17:17:00 Maggie Hamilton [facility] CONSENT/REFUSAL FOR DIAGNOSIS AND TREATMENT 2022 16:53:13 Doctor Unassigned, Dupree [facility] US GALL BLADDER 2022-01-18 12:31:09 Bernardo Levy [facility] US PELVIS COMPLETE WITH TRANSVAGINAL 2022-01-18 12:21:[address] [facility] CT ABDOMEN PELVIS W CONTRAST 2022-01-18 11:20:[address] [facility] POCT TEST 2022-01-18 10:57:[address] [facility] COVID-19 (ID NOW RAPID TESTING) 2022-01-18 10:57:[address] [facility] URINALYSIS 2022-01-18 10:47:00 Jayy Kennedy [facility] LIPASE 2022-01-18 10:29:00 Jayy Kennedy [facility] TEST, SERUM 2022-01-18 10:29:[address] [facility] HEPATIC FUNCTION PANEL ([id number]) (ALB,T.PRO,BILI T,BU/BC,ALT,AST,ALK PHOS) 2022-01-18 10:29:[address] [facility] BASIC METABOLIC PANEL (NA, K, CL, CO2, GLUCOSE, BUN, CREATININE, CA) 2022-01-18 10:29:[address] [facility] CBC WITH DIFF 2022-01-18 10:29:00 Jayy Kennedy [facility] CONSENT/REFUSAL FOR DIAGNOSIS AND TREATMENT 2022-01-18 10:13:31 Doctor Unassigned, Dupree [facility] CT HEAD WO CONTRAST 2022-01-15 15:22:[address] [facility] TEST, SERUM 2022-01-15 14:36:[address] [facility] BASIC METABOLIC PANEL (NA, K, CL, CO2, GLUCOSE, BUN, CREATININE, CA) 2022-01-15 14:36:[address] [facility] CBC WITH DIFF 2022-01-15 14:36:00 Maura Samayoa [facility] CONSENT/REFUSAL FOR DIAGNOSIS AND TREATMENT 2022-01-15 13:28:12 Doctor Unassigned, Dupree [facility] XR CERVICAL SPINE 4 VW 2022-01-09 00:29:16 Gabriela, Kassandra [facility] XR LUMBAR SPINE 4 VW 2022-01-09 00:29:16 Gabriela, And res [facility] XR SPINE THORACIC 3 VW 2022-01-09 00:29:16 [facility] 2022-01-08 23:50:00 Humberto Ochoa [facility] CONSENT/REFUSAL FOR DIAGNOSIS AND TREATMENT 2022-01-08 22:51:08 Doctor Unassigned, Dupree [facility] GALV ONLY - VAGINAL PATHOGENS BY NUCLEIC ACID TESTING 2021-12-12 18:37:[address] [facility] URINE CULTURE 2021-12-12 18:32:00 Prasanna Vargas [facility] POCT TEST 2021-12-12 18:31:[address] [facility] POCT URINALYSIS W/O SPECIFIC GRAVITY 2021-12-12 18:31:[address] [facility] Encounters Start Date/Time End Date/Time Encounter Type Admission Type Attending [facility] Care Facility Care Department Encounter ID Source 2021-03-14 03:14:31 Emergency [facility] [id number] [facility] 2021-03-13 20:05:20 Emergency [facility] [id number] [facility] 2021-03-13 12:48:28 Emergency [facility] [id number] [facility] 2021-03-13 02:43:51 Emergency [facility] [id number] [facility] 2021-03-13 00:27:09 Emergency [facility] [id number] [facility] 2021-03-12 22:10:36 Emergency [facility] [id number] [facility] 2021-03-12 20:04:05 Emergency [facility] [place] [id number] 2021-03-12 15:25:05 Emergency [facility] [id number] [facility] 2021-03-12 11:43:36 Emergency [facility] [id number] [facility] 2021-03-12 07:41:37 Emergency [facility] [id number] [facility] 2021-03-12 05:43:47 Emergency [facility] [id number] [facility] 2021-03-12 03:43:41 Emergency [facility] [id number] [facility] 2021-03-12 01:31:27 Emergency [facility] [id number] [facility] 2021-03-12 00:56:44 Emergency X [facility] E[facility] [id number] [facility] 2021-03-12 00:56:31 Emergency [facility] [id number] [facility] 2021-03-11 17:47:02 Emergency [facility] [place] [id number] [facility] 2021-03-11 16:27:15 Emergency [facility] [id number] [facility] 2021-03-11 12:00:58 Emergency [facility] [id number] [facility] 2021-03-11 10:33:59 Emergency [facility] [place] [id number] [facility] 2021-03-11 01:36:52 Emergency [facility] [place] [id number] [facility] 2021-03-10 23:35:34 Emergency [facility] [id number] [facility] 2021-03-10 19:06:16 Emergency [facility] [id number] [facility] 2021-03-10 12:39:47 Emergency [facility] [id number] [facility] 2021-03-10 06:54:04 Emergency [facility] [id number] [facility] 2021-03-09 13:25:44 Outpatient P [facility] [id number] [facility] 2021-03-09 13:08:01 Outpatient P [facility] [id number] [facility] 2021-03-09 12:37:25 Outpatient P [facility] [id number] [facility] 2021-03-09 11:51:20 Outpatient P [facility] [id number] [facility] 2023-08-04 14:56:23 2023-08-04 14:56:23 Outpatient [facility] [id number] Willis Gil 2023-06-27 14:47:45 2023-06-27 14:47:45 Outpatient [facility] [id number] Willis Gil 2023-05-19 09:04:00 2023-05-19 12:20:00 Emergency X ADERIANNA MARIE LOPEZBRIL [facility] ERT [id number] [facility] 2023-05-19 09:04:00 2023-05-19 12:20:00 Emergency Aderialicia, Anna Mariebril [facility] 1.2.840.114 350.1.13.10 4.2.7.2.686 [id number] [facility] 2023-04-05 00:00:00 2023-04-05 00:00:00 Patient Secure Msg Prasanna Vargas Cam [facility] 1.2.840.114 350.1.13.10 4.2.7.2.686 [id number] [facility] 2023-02-14 12:59:23 2023-02-14 12:59:23 Outpatient [facility] [id number] Willis Gil 2023-02-06 18:19:02 2023-02-06 18:19:02 Outpatient [facility] [id number] Willis Gil 2023-01-30 00:00:00 2023-01-30 00:00:00 Outpatient ERSHARYNON_Farzana [facility] [id number] 2023-01-16 00:00:00 2023-01-16 00:00:00 Transition of Care Marlys Odell 1.2.840.114 350.1.13.10 4.2.7.2.686 [id number] [facility] 2023-01-11 21:06:00 2023-01-15 16:00:00 Inpatient X OLIVER STEELE [facility] DAVID [id number] [facility] 2023-01-11 21:06:00 2023-01-15 16:00:00 Hospital Encounter Aroldo Siddiqui, Mirella Steele, Oliver [facility] 1.2.840.114 350.1.13.10 4.2.7.2.686 [id number] [facility] 2023-01-12 00:00:00 2023-01-12 00:00:00 Travel 1.2.840.1 15641.1.1 3.104.2.7 .3.397539 .8 1.2.840.114 350.1.13.10 4.2.7.3.698 [id number] [facility] 2023-01-11 00:00:00 2023-01-11 00:00:00 Travel 1.2.840.1 80103.1.1 3.104.2.7 .3.045093 .8 1.2.840.114 350.1.13.10 4.2.7.3.698 084.8 [id number] [facility] 2022-12-28 00:00:00 2022-12-28 00:00:00 Outpatient CHILO [facility] [id number] [facility] 2022-12-14 18:37:13 2022-12-14 18:37:13 Outpatient STEFANY MCCALL [id number] Willis Gil 2022-12-13 00:00:00 2022-12-13 00:00:00 Outpatient BILL_R [facility] [id number] Odilia [facility] 2022-12-12 09:30:00 2022-12-12 09:30:00 Outpatient Farzana PRASANNA VARGAS [facility] [id number] [facility] 2022-11-21 13:08:00 2022-11-21 16:45:00 Emergency X MANJU NEWELL [facility] ERT [id number] [facility] 2022-11-21 13:08:00 2022-11-21 16:45:00 Emergency Zion Bridges Manju Newell 1.2.840.1 57933.1.1 3.104.2.7 .3.310066 .8 [id number] [facility] 2022-11-21 00:00:00 2022-11-21 00:00:00 Travel 1.2.840.1 [id number] 3.104.2.7 .3.767703 .8 1.2.840.114 350.1.13.10 4.2.7.3.698 [id number] [facility] 2022-11-18 10:08:00 2022-11-18 10:08:00 Outpatient [facility] [id number] Willis Gil 2022-11-15 09:40:00 2022-11-15 09:40:00 Outpatient LIAN LABOY CHRISTINE [facility] [id number] [facility] 2022-11-15 00:00:00 2022-11-15 00:00:00 Orders Only Palak Marrufo 1.2.840.1 79820.1.1 3.104.2.7 .3.264426 .8 [id number] [facility] 2022-11-09 15:26:18 2022-11-09 15:26:18 Outpatient [facility] [id number] Willis Gil 2022-11-06 13:00:00 2022-11-06 13:00:00 Outpatient R VIJAY MARTINEZ [facility] [id number] [facility] 2022-10-29 00:00:00 2022-10-29 00:00:00 Patient Secure Msg Lian Greene 1.2.840.1 [id number] 3.104.2.7 .3.983659 .8 [id number] [facility] 2022-10-29 00:00:00 2022-10-29 00:00:00 Patient Secure Msg Prasanna Vargas 1.2.840.1 89869.1.1 3.104.2.7 .3.839695 .8 [id number] [facility] 2022-10-03 00:00:00 2022-10-03 00:00:00 Letter (Out) Gurjit Lim [facility] 1.2.840.114 350.1.13.10 4.2.7.2.686 [id number] [facility] 2022-10-02 10:00:00 2022-10-02 10:00:00 Outpatient R CELINA FINNEY [facility] [id number] [facility] 2022-10-01 09:40:00 2022-10-01 09:40:00 Outpatient REJI COOPER [facility] [id number] [facility] 2022-09-25 00:00:00 2022-09-25 00:00:00 Telephone [facility] 1..840.114 350.1.13.10 4.2.7.2.686 [id number] [facility] 2022-09-21 09:30:00 2022-09-21 09:30:00 Outpatient KASSANDRA MCKINLEY [facility] [id number] [facility] 2022-09-21 00:00:00 2022-09-21 00:00:00 Letter (Out) [facility] 1.2.840.114 350.1.13.10 4.2.7.2.686 [id number] [facility] 2022-09-21 00:00:00 2022-09-21 00:00:00 Telephone Chitra [facility] TO[facility] 1.2840.114 350.1.13.10 4.2.7.2.686 [id number] [facility] 2022-09-21 00:00:00 2022-09-21 00:00:00 Telephone [facility] 1.2.840.114 350.1.13.10 4.2.7.2.686 [id number] [facility] 2022-09-14 09:30:00 2022-09-14 09:30:00 Outpatient R ANASTASIIA [facility]FORM[facility]LY [facility] [id number] [facility] 2022-09-12 00:00:00 2022-09-12 00:00:00 Telephone Cristian [facility] TO[facility] 1.2.840.114 350.1.13.10 4.2.7.2.686 [id number] [facility] 2022-09-07 11:30:00 2022-09-07 11:30:00 [facility] [id number] [facility] 2022-09-05 08:44:00 2022-09-05 13:15:00 Emergency X KENNEDY WHITLEY [facility] E[facility] [id number] [facility] 2022-09-05 08:44:00 2022-09-05 13:15:00 Emergency Kennedy Whitley [facility] 1.2.840.114 350.1.13.10 4.2.7.2.686 [id number] [facility] 2022-09-04 00:00:00 2022-09-04 00:00:00 Telephone Kassandra Pugh [facility] 1..840.114 350.1.13.10 4.2.7.2.686 [id number] [facility] 2022-09-04 00:00:00 2022-09-04 00:00:00 Patient Secure Msg Rad Serra [facility] 1..840.114 350.1.13.10 4.2.7.2.686 [id number] [facility] 2022-08-29 09:00:00 2022-08-29 09:00:00 Outpatient CELINA SALMON [facility] [id number] [facility] 2022-08-14 00:00:00 2022-08-14 00:00:00 Patient Secure Msg Doctor Unassigned, Dup[place] [facility] 1..840.114 350.1.13.10 4.2.7.2.686 [id number] [facility] 2022-07-31 17:56:00 2022-07-31 20:30:00 Emergency X [facility] [id number] [facility] 2022-07-31 17:56:00 2022-07-31 20:30:00 Emergency ManilaManju matos [facility] 1..840.114 350.1.13.10 4.2.7.2.686 [id number] [facility] 2022-07-15 09:46:45 2022-07-15 23:59:00 Outpatient CARI TUTTLE [facility] [id number] [facility] 2022-07-15 09:46:45 2022-07-15 23:59:00 Hospital Encounter Cari Kaur [facility] TO[facility] 1.20.114 350.1.13.10 4.2.7.2.686 [id number] [facility] 2022-07-15 09:46:45 2022-07-15 23:59:00 Hospital Encounter Cari Kaur [facility] TO[facility] 1.2.114 350.1.13.10 4.2.7.2.686 [id number] [facility] 2022-07-15 09:20:00 2022-07-15 10:29:17 Urgent Care Cari Kaur Unknown, Attending [facility] 1.114 350.1.13.10 4.2.7.2.686 [id number] [facility] 2022-07-15 00:00:00 2022-07-15 00:00:00 Orders Only Doctor Unassigned, [place] [facility] 1.2840.114 350.1.13.10 4.2.7.2.686 [id number] [facility] 2022-06-23 09:20:00 2022-06-23 10:27:39 Outpatient R ROBERBRANDONROBER OLEAEMILYCYNDI [facility] [id number] [facility] 2022-06-23 09:20:00 2022-06-23 10:27:39 Urgent Care RoberKirk george Unknown, Attending [facility] 1.2840.114 350.1.13.10 4.2.7.2.686 [id number] [facility] 2022-06-23 00:00:00 2022-06-23 00:00:00 Orders Only Doctor Unassigned, [place] [facility] 1..840.114 350.1.13.10 4.2.7.2.686 [id number] [facility] 2022-06-15 09:40:00 2022-06-15 09:40:00 Outpatient R LIAN GREENE [facility] [id number] [facility] 2022-05-29 08:00:00 2022-05-29 08:00:00 Outpatient KASSANDRA MCKINLEY [facility] [id number] [facility] 2022-05-15 09:20:00 2022-05-15 09:20:00 Outpatient R BENNETT MILLER [facility] [id number] [facility] 2022-05-11 09:30:00 2022-05-11 09:30:00 Outpatient KASSANDRA MCKINLEY [facility] [id number] [facility] 2022-05-05 12:26:00 2022-05-05 16:11:00 Emergency X KARON NORTON [facility] E[facility] [id number] [facility] 2022-05-05 12:26:00 2022-05-05 16:11:00 Emergency Karon Norton [facility] ..840.114 350.1.13.10 4.2.7.2.686 [id number] [facility] 2022-05-01 00:00:00 2022-05-01 00:00:00 Outpatient R PRASANNA VARGAS [facility] [id number] [facility] 2022-04-26 08:30:00 2022-04-26 09:59:00 Emergency X ZION BRIDGES [facility] E[facility] [id number] [facility] 2022-04-26 08:30:00 2022-04-26 09:59:00 Emergency Zion Bridges [facility] 1.2840.114 350.1.13.10 4.2.7.2.686 [id number] [facility] 2022-04-25 18:23:00 2022-04-25 21:55:00 Emergency X KENNEDY WHITLEY [facility] [id number] [facility] 2022-04-25 18:23:00 2022-04-25 21:55:00 Emergency Kennedy Whitley [facility] 1.2840.114 350.1.13.10 4.2.7.2.686 [id number] [facility] 2022-04-19 10:00:00 2022-04-19 10:00:00 Outpatient LIAN LABOY [facility] [id number] [facility] 2022-04-12 00:00:00 2022-04-12 00:00:00 Telephone [facility] 1.2.840.114 350.1.13.10 4.2.7.2.686 [id number] [facility] 2022-04-11 00:00:00 2022-04-11 00:00:00 Telephone PattiDarrion salmon [facility] 1.2.840.114 350.1.13.10 4.2.7.2.686 [id number] [facility] 2022-04-10 00:00:00 2022-04-10 00:00:00 [facility] 1.2.840.114 350.1.13.10 4.2.7.2.686 [id number] [facility] 2022-04-09 09:30:00 2022-04-09 09:30:00 Office Visit Cristian [facility] TOÑO?[facility] 1.84.114 350.1.13.10 4.2.7.2.686 [id number] [facility] 2022-04-09 09:30:00 2022-04-09 09:21:44 Outpatient R KASSANDRA PUGH [facility] [id number] [facility] 2022-04-07 13:41:00 2022-04-07 17:49:00 Emergency X OLAMIDE GARVIN [facility] [id number] [facility] 2022-04-07 13:41:00 2022-04-07 17:49:00 Emergency Olamide Garvin [facility] 1.84.114 350.1.13.10 4.2.7.2.686 [id number] [facility] 2022-04-07 00:00:00 2022-04-07 00:00:00 Patient Secure Msg Doctor Unassigned, [place] [facility] 1.114 350.1.13.10 4.2.7.2.686 [id number] [facility] 2022-04-04 00:00:00 2022-04-04 00:00:00 [facility] 1.840.114 350.1.13.10 4.2.7.2.686 [id number] [facility] 2022-04-02 10:30:00 2022-04-02 10:30:00 Outpatient R KASSANDRA PUGH [facility] [id number] [facility] 2022-03-28 00:00:00 2022-03-28 00:00:00 Patient Secure Msg Doctor Unassigned, [place] [facility] 1.840.114 350.1.13.10 4.2.7.2.686 [id number] [facility] 2022-03-24 07:35:00 2022-03-24 13:11:00 Emergency X KELLIE DUNCAN [facility] E[facility] [id number] [facility] 2022-03-24 07:35:00 2022-03-24 13:11:00 Emergency Kellie Duncan E [facility] 1.2840.114 350.1.13.10 4.2.7.2.686 [id number] [facility] 2022-03-23 10:30:00 2022-03-23 10:30:00 Outpatient KASSANDRA MCKINLEY [facility] [id number] [facility] 2022-03-23 00:00:00 2022-03-23 00:00:00 Telephone PattiDarrion [facility] 1.284.114 350.1.13.10 4.2.7.2.686 [id number] [facility] 2022-03-22 00:00:00 2022-03-22 00:00:00 Telephone PattiDarrion salmon [facility] TO[facility] 1.84.114 350.1.13.10 4.2.7.2.686 [id number] [id number] [facility] 2022-03-22 00:00:00 2022-03-22 00:00:00 Refill Patti Darrion [facility] TO[facility]O?[facility] 1.84.114 350.1.13.10 4.2.7.2.686 [id number] [facility] 2022-03-21 00:00:00 2022-03-21 00:00:00 Telephone Darrion Wyatt [facility] TOÑO?[facility] OFF[facility] 1.284.114 350.1.13.10 4.2.7.2.686 [id number] [facility] 2022-03-15 14:00:00 2022-03-15 14:36:19 [facility] [id number] [facility] 2022-03-15 14:00:00 2022-03-15 14:36:19 [facility] 1..840.114 350.1.13.10 4.2.7.2.686 [id number] [facility] 2022-03-15 08:40:00 2022-03-15 10:47:00 Emergency X ANNA GOULD [facility] [id number] [facility] 2022-03-15 08:40:00 2022-03-15 10:47:00 Emergency Bryanna [facility] 1..840.114 350.1.13.10 4.2.7.2.686 [id number] [facility] 2022-03-14 10:30:00 2022-03-14 10:30:00 Outpatient R PRASANNA VARGAS [facility] [id number] [facility] 2022-03-11 09:22:00 2022-03-11 12:15:00 [facility] [id number] [facility] 2022-03-11 09:22:00 2022-03-11 12:15:00 [facility]..840.114 350.1.13.10 4.2.7.2.686 [id number] [facility] 2022-03-06 08:30:00 2022-03-06 08:30:00 Outpatient R KASSANDRA PUGH [facility] [id number] [facility] 2022-03-02 00:00:00 2022-03-02 00:00:00 [facility] 1..840.114 350.1.13.10 4.2.7.2.686 [id number] [facility] 2022-02-28 00:00:00 2022-02-28 00:00:00 Patient Secure Msg Doctor Unassigned, Dup[place] [facility] 1.2.840.114 350.1.13.10 4.2.7.2.686 [id number] [facility] 2022-02-27 09:30:00 2022-02-27 09:49:42 Outpatient KASSANDRA MCKINLEY [facility] [id number] [facility] 2022-02-27 09:30:00 2022-02-27 09:49:42 [facility] 1..840.114 350.1.13.10 4.2.7.2.686 [id number] [id number] [facility] 2022-02-27 08:00:00 2022-02-27 09:12:17 Office Visit [facility]ij[facility] 1..840.114 350.1.13.10 4.2.7.2.686 [id number] [facility] 2022-02-26 11:30:00 2022-02-26 11:30:00 Outpatient R KASSANDRA PUGH [facility] [id number] [facility] 2022-02-21 01:20:00 2022-02-21 03:44:00 Emergency MAGGIE MONTANEZ [facility] [id number] [facility] 2022-02-21 01:20:00 2022-02-21 03:44:00 Emergency Maggie Hamilton [facility] 1.2.840.114 350.1.13.10 4.2.7.2.686 [id number] [facility] 2022-02-19 00:00:00 2022-02-19 00:00:00 Patient Secure Msg Kendal Zamudio [facility] 1.2840.114 350.1.13.10 4.2.7.2.686 [id number] [facility] 2022-02-19 00:00:00 2022-02-19 00:00:00 Patient Secure Msg Kendal Zamudio [facility] 1.2840.114 350.1.13.10 4.2.7.2.686 [id number] [facility] 2022-02-19 00:00:00 2022-02-19 00:00:00 Patient Secure Msg Ade Bradford [facility] 1.2.840.114 350.1.13.10 4.2.7.2.686 [id number] [facility] 2022-02-19 00:00:00 2022-02-19 00:00:00 Patient Secure Msg Ross Salazar [facility] AUTOMOBILE INSURANCE CLAIM [facility] 1.2840.114 350.1.13.10 4.2.7.2.686 [id number] [facility] 2022 11:58:00 2022 15:13:00 Emergency X MAGGIE HAMILTON [facility] [id number] [facility] 2022 11:58:00 2022 15:13:00 Emergency Maggie Hamilton [facility] 1.2.840.114 350.1.13.10 4.2.7.2.686 [id number] [facility] 2022-02-09 09:00:00 2022-02-09 09:00:00 Outpatient R RENATA CRICKET [facility] [id number] [facility] 2022-02-06 10:00:00 2022-02-06 10:00:00 Outpatient VIJAY ARAUZ [facility] [id number] [facility] 2022-02-05 09:45:00 2022-02-05 10:05:00 Nurse Visit Nurse, Filippo [facility] Ileana Medrano [facility] 1..840.114 350.1.13.10 4.2.7.2.686 [id number] [facility] 2022-02-05 09:20:00 2022-02-05 09:20:00 Outpatient FLACO KEE [facility] [id number] [facility] 2022-01-26 00:00:00 2022-01-26 00:00:00 Case Management Prasanna [facility]argas [facility] 1..840.114 350.1.13.10 4.2.7.2.686 [id number] [facility] 2022-01-22 11:00:00 2022-01-22 11:00:00 Outpatient VIJAY ARAUZ [facility] [id number] [facility] 2022-01-19 00:00:00 2022-01-19 00:00:00 Patient Secure Msg Doctor Unassigned, [place] [facility] 1..840.114 350.1.13.10 4.2.7.2.686 [id number] [facility] 2022-01-18 05:17:00 2022-01-18 10:25:00 Emergency X BERNARDO LEVY [facility] [id number] [facility] 2022-01-18 05:17:00 2022-01-18 10:25:00 Emergency Jayy Kennedy [facility] 1..840.114 350.1.13.10 4.2.7.2.686 [id number] [facility] 2022-01-15 08:34:00 2022-01-15 10:49:00 Emergency Aj JESSICAKAMARIMAURA [facility] [id number] [facility] 2022-01-15 08:34:00 2022-01-15 10:49:00 Emergency Larry Perez Maura Romero [facility] 1..840.114 350.1.13.10 4.2.7.2.686 [id number] [facility] 2022-01-08 18:04:00 2022-01-08 20:09:00 Emergency X SURAJ OCHOAS [facility] [id number] [facility] 2022-01-08 18:04:00 2022-01-08 20:09:00 Emergency Humberto Ochoa [facility] 1..840.114 350.1.13.10 4.2.7.2.686 [id number] [facility] 2021-12-12 13:30:00 2021-12-12 13:40:21 Outpatient TETO BRANTLEY [facility] [id number] [facility] 2021-12-12 13:30:00 2021-12-12 13:40:21 Office Visit Prasanna Varg[facility] 1..840.114 350.1.13.10 4.2.7.2.686 [id number] [facility] 2021-12-12 13:30:00 2021-12-12 13:40:21 Outpatient Farzana CARNES [facility] [id number] [facility] 2021-12-12 13:30:00 2021-12-12 13:40:21 Outpatient R ADOLFOTETO WYMAN [facility] [id number] [facility] 2021-12-11 16:15:00 2021-12-11 16:15:00 Outpatient R ADE BRADFORD [facility] [id number] [facility] 2021-12-05 14:15:00 2021-12-05 14:15:00 Outpatient Farzana OMALLEY ROMULO [facility] [id number] [facility] 2021-11-28 08:49:00 2021-11-28 11:02:00 Emergency X KARON NORTON [facility] [id number] [facility] 2021-11-28 08:49:00 2021-11-28 11:02:00 Emergency Karon Norton [facility] 1.2.840.114 350.1.13.10 4.2.7.2.686 [id number] [facility] 2021-11-28 00:00:00 2021-11-28 00:00:00 Patient Secure Msg Cricket Taylor [facility] AUTOMOBILE INSURANCE CLAIM EXAM[facility]ER [facility] MATERNAL & CHILD [facility] 1.2.840.114 350.1.13.10 4.2.7.2.686 [id number] [facility] 2021-11-24 18:14:00 2021-11-24 21:04:00 Emergency X Kaycee MÉNDEZ [facility] [id number] [facility] 2021-11-24 18:14:00 2021-11-24 21:04:00 Emergency Kaycee Méndez [facility] 1.2.840.114 350.1.13.10 4.2.7.2.686 [id number] [facility] 2021-11-24 00:00:00 2021-11-24 00:00:00 Telephone Cricket Taylor [facility] AUTOMOBILE INSURANCE CLAIM EXAM[facility]ER [facility]ERNAL [facility] CHILD [facility] 1.2.840.114 350.1.13.10 4.2.7.2.686 [id number] [facility] 2021-11-20 00:00:00 2021-11-20 00:00:00 Patient Secure Kendal Medrano [facility] 1..84.114 350.1.13.10 4.2.7.2.686 [id number] [facility] 2021-11-19 00:00:00 2021-11-19 00:00:00 Letter (Out) Leslie Santacruz [facility] 1.284.114 350.1.13.10 4.2.7.2.686 [id number] [facility] 2021-11-18 10:41:40 2021-11-18 23:59:00 Outpatient R OLIVER FLACO [facility] [id number] [facility] 2021-11-18 10:41:40 2021-11-18 23:59:00 Hospital Encounter Oliver, [facility] 1.284.114 350.1.13.10 4.2.7.2.686 [id number] [facility] 2021-11-18 10:20:00 2021-11-18 10:53:20 Urgent Care Noelle BoydFormerly [facility] 1.2840.114 350.1.13.10 4.2.7.2.686 [id number] [facility] 2021-11-09 10:30:00 2021-11-09 10:30:00 Outpatient CELINA STONE [facility] [id number] [facility] 2021-10-25 13:20:00 2021-10-25 13:20:00 Urgent Care Ileana MedranoefeeFlaco [facility] TOÑO?[facility] 1.2.840.114 350.1.13.10 4.2.7.2.686 [id number] [facility] 2021-10-25 13:20:00 2021-10-25 12:47:59 Outpatient R ILEANA MEDRANO [facility] [id number] [facility] 2021-10-25 00:00:00 2021-10-25 00:00:00 Patient Secure Msg Vijay Martinez [facility] TO[facility] 1.2.840.114 350.1.13.10 4.2.7.2.686 [id number] [facility] 2021-10-25 00:00:00 2021-10-25 00:00:00 Telephone Vijay Martinez [facility] 1..840.114 350.1.13.10 4.2.7.2.686 [id number] [facility] 2021-10-25 00:00:00 2021-10-25 00:00:00 Telephone Provider, [facility] 1.2.840.114 350.1.13.10 4.2.7.2.686 [id number] [facility] 2021-10-25 00:00:00 2021-10-25 00:00:00 Telephone Nurse, Filippo [facility] 1.2.840.114 350.1.13.10 4.2.7.2.686 [id number] [facility] 2021-10-24 10:15:00 2021-10-24 10:15:00 Outpatient ROMULO BROWNING [facility] [id number] [facility] 2021-10-24 10:15:00 2021-10-24 10:15:00 Outpatient ROMULO BROWNING [facility] [id number] [facility] 2021-10-11 09:30:00 2021-10-11 09:30:00 Outpatient ROMULO BROWNING [facility] [id number] [facility] 2021-10-10 13:30:00 2021-10-10 13:30:00 Outpatient PRASANNA LOOMIS [facility] [id number] [facility] 2021-10-10 13:30:00 2021-10-10 13:30:00 Outpatient R PRASANNA VARGAS [facility] [id number] [facility] 2021-10-10 13:30:00 2021-10-10 13:30:00 Outpatient R PRASANNA VARGAS [facility] [id number] [facility] 2021-10-10 13:30:00 2021-10-10 13:30:00 Outpatient PRASANNA LOOMIS [facility] [id number] [facility] 2021-10-10 13:30:00 2021-10-10 13:30:00 Outpatient PRASANNA LOOMIS [facility] [id number] [facility] 2021-10-10 13:30:00 2021-10-10 13:30:00 Outpatient R PRASANNA VARGAS [facility] [id number] [facility] 2021-10-10 13:30:00 2021-10-10 13:30:00 Outpatient R PRASANNA VARGAS [facility] [id number] [facility] 2021-10-05 00:00:00 2021-10-05 00:00:00 Patient Secure Msg Kendal Zamudio [facility] 1.2.840.114 350.1.13.10 4.2.7.2.686 [id number] [facility] 2021-10-05 00:00:00 2021-10-05 00:00:00 Patient Secure Msg [facility] 1.2.840.114 350.1.13.10 4.2.7.2.686 [id number] [facility] 2021-10-04 00:00:00 2021-10-04 00:00:00 Pre Visit Outreach Melia Rodriguez [facility] 1.2.840.114 350.1.13.10 4.2.7.2.686 [id number] [facility] 2021-09-28 13:30:00 2021-09-28 13:45:00 Office Visit Celina Mixon [facility] 1.2.840.114 350.1.13.10 4.2.7.2.686 [id number] [facility] 2021-09-28 13:30:00 2021-09-28 13:30:00 Outpatient CELINA STONE [facility] [id number] [facility] 2021-09-28 13:30:00 2021-09-28 13:30:00 Outpatient CELINA STONE [facility] [id number] [facility] 2021-09-28 00:00:00 2021-09-28 00:00:00 Patient Secure g OnurCelina [facility] 1.2.840.114 350.1.13.10 4.2.7.2.686 [id number] [facility] 2021-09-27 14:00:00 2021-09-27 14:00:00 Outpatient TETO BRANTLEY [facility] [id number] [facility] 2021-09-27 09:30:00 2021-09-27 09:30:00 Outpatient DANIA RICARDO [facility] [id number] [facility] 2021-09-27 09:30:00 2021-09-27 09:30:00 Outpatient R DANIA PENNINGTON [facility] [id number] [facility] 2021-09-27 09:30:00 2021-09-27 09:30:00 Outpatient R DANIA PENNINGTON [facility] [id number] [facility] 2021-09-26 10:45:00 2021-09-26 10:45:00 Outpatient R CRICKET TAYLOR [facility] [id number] [facility] 2021-09-26 10:45:00 2021-09-26 10:45:00 Outpatient R CRICKET TALYOR [facility] [id number] [facility] 2021-09-26 00:00:00 2021-09-26 00:00:00 Patient Secure Vijay Caraballo [facility] 1.2.840.114 350.1.13.10 4.2.7.2.686 [id number] [facility] 2021-09-26 00:00:00 2021-09-26 00:00:00 Patient Secure Vijay Caraballo [facility] 1.2.840.114 350.1.13.10 4.2.7.2.686 [id number] [facility] 2021-09-25 10:20:00 2021-09-25 11:10:42 Urgent Care OliverFlaco mccauley Amanda [facility] 1.2.840.114 350.1.13.10 4.2.7.2.686 [id number] [facility] 2021-09-25 10:20:00 2021-09-25 11:10:42 Outpatient R FLACO BOYD [facility] [id number] [facility] 2021-09-25 10:20:00 2021-09-25 10:20:00 Outpatient R FLACO BOYD [facility] [id number] [facility] 2021-09-25 10:00:00 2021-09-25 10:00:00 Outpatient R PRASANNA VARGAS [facility] [id number] [facility] 2021-09-25 00:00:00 2021-09-25 00:00:00 Telephone Noelle BoydFormerly [facility] 1.2840.114 350.1.13.10 4.2.7.2.686 [id number] [facility] 2021-09-25 00:00:00 2021-09-25 00:00:00 Patient Secure MsPrasanna Lyman Jm [facility] N[facility] BU[facility] 1.840.114 350.1.13.10 4.2.7.2.686 [id number] [facility] 2021-09-25 00:00:00 2021-09-25 00:00:00 Telephone Cricket Taylor [facility] AUTOMOBILE INSURANCE CLAIM EXAM[facility]ER [facility] 1.2840.114 350.1.13.10 4.2.7.2.686 [id number] [facility] 2021-09-25 00:00:00 2021-09-25 00:00:00 Telephone Celina Mixon [facility] 1.2840.114 350.1.13.10 4.2.7.2.686 [id number] [facility] 2021-09-15 00:00:00 2021-09-15 00:00:00 Patient Secure Robb Kendal Amaral [facility] 1.2840.114 350.1.13.10 4.2.7.2.686 [id number] [facility] 2021-09-15 00:00:00 2021-09-15 00:00:00 Patient Secure Msg Kendal Zamudio [facility] 1.84.114 350.1.13.10 4.2.7.2.686 [id number] [id number] [facility] 2021-09-15 00:00:00 2021-09-15 00:00:00 Patient Secure Msg Kendal Zamudio [facility] 1.84.114 350.1.13.10 4.2.7.2.686 [id number] [id number] [facility] 2021-09-14 00:00:00 2021-09-14 00:00:00 Patient Secure Msg Vijay Martinez [facility] 1.84.114 350.1.13.10 4.2.7.2.686 [id number] [facility] 2021-09-14 00:00:00 2021-09-14 00:00:00 Patient Secure Msg Doctor Unassigned, Dupree [facility] 1.284.114 350.1.13.10 4.2.7.2.686 [id number] [facility] 2021-09-12 10:30:00 2021-09-12 10:30:00 Outpatient CELINA STONE [facility] [id number] [facility] 2021-09-12 10:30:00 2021-09-12 10:30:00 Outpatient CELINA STONE [facility] [id number] [facility] 2021-09-12 00:00:00 2021-09-12 00:00:00 Patient Secure Msg Daniel Dsouza [facility] 1.84.114 350.1.13.10 4.2.7.2.686 [id number] [facility] 2021-09-12 00:00:00 2021-09-12 00:00:00 Orders Only Doctor Unassigned, [place] [facility] 1.2.840.114 350.1.13.10 4.2.7.2.686 [id number] [facility] 2021-09-12 00:00:00 2021-09-12 00:00:00 Patient Secure Msg [facility] 1.2840.114 350.1.13.10 4.2.7.2.686 [id number] [facility] 2021-09-05 00:00:00 2021-09-05 00:00:00 Patient Secure Msg Juan [facility] 1.2840.114 350.1.13.10 4.2.7.2.686 [id number] [facility] 2021-09-05 00:00:00 2021-09-05 00:00:00 Patient Secure Msg Doctor Unassigned, [place] [facility] 1.2.840.114 350.1.13.10 4.2.7.2.686 [id number] [facility] 2021-09-05 00:00:00 2021-09-05 00:00:00 Patient Secure Msg Doctor Unassigned, [place] [facility] 1.2.840.114 350.1.13.10 4.2.7.2.686 [id number] [facility] 2021-09-04 00:00:00 2021-09-04 00:00:00 Patient Secure Msg Juan [facility] 1.2840.114 350.1.13.10 4.2.7.2.686 [id number] [facility] 2021-08-28 00:00:00 2021-08-28 00:00:00 Patient Secure Msg Harsh Charles Kaycee [facility] 1.20.114 350.1.13.10 4.2.7.2.686 [id number] [facility] 2021-08-25 00:00:00 2021-08-25 00:00:00 Telephone Dania Pennington Ez [facility] 1..114 350.1.13.10 4.2.7.2.686 [id number] [facility] 2021-08-25 00:00:00 2021-08-25 00:00:00 Patient Secure Msg Vijay Martinez [facility] 1.20.114 350.1.13.10 4.2.7.2.686 [id number] [facility] 2021-08-24 00:00:00 2021-08-24 00:00:00 [facility] 1.2.114 350.1.13.10 4.2.7.2.686 [id number] [facility] 2021-08-24 00:00:00 2021-08-24 00:00:00 Patient Secure Msg [facility]ij[facility] 1.20.114 350.1.13.10 4.2.7.2.686 [id number] [facility] 2021-08-23 00:00:00 2021-08-23 00:00:00 Patient Secure Msg [facility]ij[facility] 1.20.114 350.1.13.10 4.2.7.2.686 [id number] [facility] 2021-08-23 00:00:00 2021-08-23 00:00:00 Telephone Vijay Martinez [facility] 1.2.840.114 350.1.13.10 4.2.7.2.686 [id number] [facility] 2021-08-22 00:00:00 2021-08-22 00:00:00 Telephone Vijay Martinez [facility] 1.2.840.114 350.1.13.10 4.2.7.2.686 [id number] [id number] [facility] 2021-08-22 00:00:00 2021-08-22 00:00:00 Patient Secure Msg Hallie Wilkinson [facility] 1.2.840.114 350.1.13.10 4.2.7.2.686 [id number] [id number] [facility] 2021-08-18 00:00:00 2021-08-18 00:00:00 Telephone Vijay Martinez [facility] 1.2.840.114 350.1.13.10 4.2.7.2.686 [id number] [id number] [facility] 2021-08-17 09:00:00 2021-08-17 09:00:00 Outpatient CELINA STONE [facility] [id number] [facility] 2021-08-17 09:00:00 2021-08-17 09:00:00 Outpatient CELINA STONE [facility] [id number] [facility] 2021-08-17 00:00:00 2021-08-17 00:00:00 Patient Secure Msg Prasanna [facility] 1.2840.114 350.1.13.10 4.2.7.2.686 [id number] [facility] 2021-08-17 00:00:00 2021-08-17 00:00:00 Patient Secure Msg [facility]ijay Martinez [facility] 1.2840.114 350.1.13.10 4.2.7.2.686 [id number] 044 [id number] [facility] 2021-08-17 00:00:00 2021-08-17 00:00:00 Patient Secure Msg Vijay Martinez [facility] 1.2840.114 350.1.13.10 4.2.7.2.686 [id number] 044 [id number] [facility] 2021-08-16 00:00:00 2021-08-16 00:00:00 Patient Secure Msg [facility] 1.2840.114 350.1.13.10 4.2.7.2.686 [id number] 044 [id number] [facility] 2021-08-16 00:00:00 2021-08-16 00:00:00 Patient Secure Msg Doctor Unassigned, [place] [facility] TO[facility]O?[facility] MEDICAL OFFICE BUILDING 1.2840.114 350.1.13.10 4.2.7.2.686 [id number] 044 [id number] [facility] 2021-08-16 00:00:00 2021-08-16 00:00:00 Patient Secure Msg Vijay Martinez [facility] TO[facility]O?[facility] MEDICAL OFFICE BUILDING 1.2840.114 350.1.13.10 4.2.7.2.686 [id number] [id number] [facility] 2021-08-16 00:00:00 2021-08-16 00:00:00 Patient Secure Vijay Caraballo [facility] 1.2.840.114 350.1.13.10 4.2.7.2.686 [id number] [id number] [facility] 2021-08-15 15:30:00 2021-08-15 16:16:42 Office Visit Adán Kim [facility] 1.2.840.114 350.1.13.10 4.2.7.2.686 [id number] [facility] 2021-08-15 15:30:00 2021-08-15 16:16:42 Outpatient ADÁN DIEGO [facility] [id number] [facility] 2021-08-15 15:30:00 2021-08-15 15:30:00 Outpatient ADÁN DIEGO [facility] [id number] [facility] 2021-08-15 15:30:00 2021-08-15 15:30:00 Outpatient ADÁN DIEGO [facility] [id number] [facility] 2021-08-15 15:30:00 2021-08-15 15:30:00 Outpatient ADÁN DIEGO [facility] [id number] [facility] 2021-08-15 09:27:00 2021-08-15 12:26:00 Emergency MAURA DALE [facility] [id number] [facility] 2021-08-15 09:27:00 2021-08-15 12:26:00 Emergency Maura Samayoa [facility] 1.2.840.114 350.1.13.10 4.2.7.2.686 [id number] [facility] 2021-08-15 09:27:00 2021-08-15 12:26:00 Emergency MAURA DALE [facility] [id number] [facility] 2021-08-15 00:00:00 2021-08-15 00:00:00 Patient Secure Msg Doctor Unassigned, [place] [facility] 1.840.114 350.1.13.10 4.2.7.2.686 [id number] [facility] 2021-08-14 13:25:00 2021-08-14 23:59:00 Outpatient R VIJAY MARTINEZ [facility] [id number] [facility] 2021-08-14 13:25:00 2021-08-14 23:59:00 Outpatient R VIJAY MARTINEZ [facility] [id number] [facility] 2021-08-14 13:25:00 2021-08-14 13:25:00 Outpatient R VIJAY MARTINEZ [facility] [id number] [facility] 2021-08-14 12:19:07 2021-08-14 13:24:00 Outpatient R VIJAY MARTINEZ [facility] [id number] [facility] 2021-08-14 12:19:07 2021-08-14 13:24:00 Outpatient R VIJAY MARTINEZ [facility] [id number] [facility] 2021-08-14 12:30:00 2021-08-14 13:01:24 Revenue Inspector Visit Lab, [facility] MEDICAL OFF[facility] BUILD[facility] 1..840.114 350.1.13.10 4.2.7.2.686 [id number] [facility] 2021-08-14 12:30:00 2021-08-14 12:45:00 Revenue Inspector Visit Lab, Filippo Martinez [facility] MED[facility] OFF[facility] BUILD[facility] 1..840.114 350.1.13.10 4.2.7.2.686 [id number] [facility] 2021-08-14 11:30:00 2021-08-14 12:31:12 Office Visit Cot[place], [facility] 1..840.114 350.1.13.10 4.2.7.2.686 [id number] [id number] [facility] 2021-08-14 11:30:00 2021-08-14 12:31:12 Outpatient R JUANVIJAY [facility] [id number] [facility] 2021-08-14 00:00:00 2021-08-14 00:00:00 Patient Secure Msg Vijay Martinez [facility] BU[facility] 1..840.114 350.1.13.10 4.2.7.2.686 [id number] [id number] [facility] 2021-08-14 00:00:00 2021-08-14 00:00:00 Patient Secure Msg [facility]helle [facility] OFF[facility] BU[facility] 1..840.114 350.1.13.10 4.2.7.2.686 [id number] [facility] 2021-08-09 14:45:00 2021-08-09 14:45:00 Outpatient R ADÁN KIM [facility] [id number] [facility] 2021-08-09 00:00:00 2021-08-09 00:00:00 Telephone VíctorVijay cannon [facility] TO[facility] MED[facility] OFF[facility] BUILD[facility] 1..840.114 350.1.13.10 4.2.7.2.686 [id number] [id number] [facility] 2021-08-08 11:30:00 2021-08-08 23:59:00 Outpatient R JUAN VIJAY [facility] [id number] [facility] 2021-08-08 11:30:00 2021-08-08 23:59:00 Hospital Encounter VíctorVijay cannon [facility] TO[facility] OFF[facility] BUILD[facility] 1..840.114 350.1.13.10 4.2.7.2.686 [id number] [facility] 2021-08-08 11:15:00 2021-08-08 11:15:00 Outpatient R VÍCTORVIJAY Cannon [facility] [id number] [facility] 2021-08-08 11:00:00 2021-08-08 11:00:00 Outpatient R JUAN VIJAY [facility] [id number] [facility] 2021-08-08 00:00:00 2021-08-08 00:00:00 Patient Secure Msg Doctor Unassigned, [place] [facility] 1..840.114 350.1.13.10 4.2.7.2.686 [id number] [facility] 2021-08-07 09:30:00 2021-08-07 10:23:21 Office Visit Vijay Martinez [facility] TO[facility] MED[facility] OFF[facility] BUILDING 1..840.114 350.1.13.10 4.2.7.2.686 [id number] [id number] [facility] 2021-08-07 09:30:00 2021-08-07 10:23:21 Outpatient R VIJAY MARTINEZ [facility] [id number] [facility] 2021-08-07 09:30:00 2021-08-07 09:30:00 Outpatient R VIJAY MARTINEZ [facility] [id number] [facility] 2021-08-07 00:00:00 2021-08-07 00:00:00 Patient Secure Msg [facility]helle [facility] OFF[facility] BU[facility] 1..840.114 350.1.13.10 4.2.7.2.686 [id number] 044 [id number] [facility] 2021-08-07 00:00:00 2021-08-07 00:00:00 Patient Secure Msg Vijay Martinez [facility] TO[facility] BU[facility] 1.2.84.114 350.1.13.10 4.2.7.2.686 [id number] 044 [id number] [facility] 2021-08-07 00:00:00 2021-08-07 00:00:00 Patient Secure Yin Zhenglara Cannon [facility] 1.840.114 350.1.13.10 4.2.7.2.686 [id number] [facility] 2021-08-04 10:00:00 2021-08-04 10:00:00 Outpatient R PETRA RENO [facility] [id number] [facility] 2021-08-04 00:00:00 2021-08-04 00:00:00 Patient Secure Vijay Caraballo [facility] BU[facility] 1.84.114 350.1.13.10 4.2.7.2.686 [id number] [id number] [facility] 2021-08-03 11:00:00 2021-08-03 12:48:43 Office Visit Jayy Diaz [facility] [employer] [employer]. .84.114 350.1.13.10 4.2.7.2.686 [id number] [facility] 2021-08-03 11:00:00 2021-08-03 12:48:43 Outpatient R JAYY DIAZ [facility] [id number] [facility] 2021-08-03 11:00:00 2021-08-03 11:00:00 Outpatient R JAYY DIAZ [facility] [id number] [facility] 2021-08-03 00:00:00 2021-08-03 00:00:00 Patient Secure Yin Zhengine Kassandra [facility] 1.840.114 350.1.13.10 4.2.7.2.686 [id number] [facility] 2021-08-02 00:00:00 2021-08-02 00:00:00 Telephone Juan Vijay [facility] TO[facility] OFFICE BUILDING 1.2.840.114 350.1.13.10 4.2.7.2.686 [id number] 044 [id number] [facility] 2021-07-21 08:00:00 2021-07-21 08:52:53 Outpatient DARRION QUIROZ HOWARD [facility] [id number] [facility] 2021-07-17 11:30:00 2021-07-17 11:30:00 Outpatient VIJAY ARAUZ [facility] [id number] [facility] 2021-07-17 00:00:00 2021-07-17 00:00:00 Patient Secure Msg Juan [facility] TOÑO?[facility] OFFICE BUILDING 1.2.840.114 350.1.13.10 4.2.7.2.686 [id number] [id number] [facility] 2021-06-19 00:00:00 2021-06-19 00:00:00 Telephone Juan Vijay [facility] TO[facility]O?[facility] BUILDING 1.2.840.114 350.1.13.10 4.2.7.2.686 [id number] [id number] [facility] 2021-06-09 00:00:00 2021-06-09 00:00:00 Telephone Reji Díaz [facility] 1.2.840.114 350.1.13.10 4.2.7.2.686 [id number] [facility] 2021-06-06 11:15:00 2021-06-06 11:15:00 Outpatient TETO BRANTLEY [facility] [id number] [facility] 2021-06-06 11:15:00 2021-06-06 11:15:00 Outpatient R ADOLFOTETO WYMAN [facility] [id number] [facility] 2021-06-02 15:45:00 2021-06-02 15:45:00 Outpatient R CRISTINACLAUDETTE IBRAHIM [facility] [id number] [facility] 2021-05-31 10:00:00 2021-05-31 10:46:31 Outpatient R VÍCTORVIJAY Cannon [facility] [id number] [facility] 2021-05-31 10:00:00 2021-05-31 10:46:31 Office Visit Juan Vijay [facility] MED[facility] OFF[facility] BUILD[facility] 1..840.114 350.1.13.10 4.2.7.2.686 [id number] [facility] 2021-05-31 10:00:00 2021-05-31 10:46:31 Outpatient R JUAN VIJAY [facility] [id number] [facility] 2021-05-31 00:00:00 2021-05-31 00:00:00 Orders Only Doctor Unassigned, [place] [facility] 1.840.114 350.1.13.10 4.2.7.2.686 [id number] [facility] 2021-05-26 00:00:00 2021-05-26 00:00:00 Telephone Skylar Groves [facility] 1.2.840.114 350.1.13.10 4.2.7.2.686 [id number] 044 [id number] [facility] 2021-05-26 00:00:00 2021-05-26 00:00:00 Patient Secure g Prasanna Vargas Jm [facility] BU[facility] 1.2.840.114 350.1.13.10 4.2.7.2.686 [id number] [facility] 2021-05-25 14:00:00 2021-05-25 14:30:00 Telemedici ne Visit Skylar Groves [facility] TOÑO?[facility] MEDICAL OFFICE BUILDING 1.2.840.114 350.1.13.10 4.2.7.2.686 [id number] [id number] [facility] 2021-05-25 14:00:00 2021-05-25 14:00:00 Outpatient R SKYLAR GROVES [facility] [id number] [facility] 2021-05-25 14:00:00 2021-05-25 14:00:00 Outpatient R SKYLAR GROVES [facility] [id number] [facility] 2021-05-25 00:00:00 2021-05-25 00:00:00 Patient Secure Msg Skylar Groves [facility] TO[facility]O?[facility] MEDICAL OFFICE BUILDING 1.2.840.114 350.1.13.10 4.2.7.2.686 [id number] [id number] [facility] 2021-05-25 00:00:00 2021-05-25 00:00:00 Patient Secure g Skylar Groves [facility] TO[facility] MEDICAL OFFICE BUILDING 1..840.114 350.1.13.10 4.2.7.2.686 [id number] 044 [id number] [facility] 2021-05-24 00:00:00 2021-05-24 00:00:00 Telephone Rad Serra K.HPilar [facility] BUILDING 1..840.114 350.1.13.10 4.2.7.2.686 [id number] [id number] [facility] 2021-05-24 00:00:00 2021-05-24 00:00:00 Patient Secure Msg Delroy Sendzohra [facility] BUILD[facility] 1.2.840.114 350.1.13.10 4.2.7.2.686 [id number] [facility] 2021-05-24 00:00:00 2021-05-24 00:00:00 Patient Secure Claudette Hinds [facility] 1.2.840.114 350.1.13.10 4.2.7.2.686 [id number] [id number] [facility] 2021-05-23 10:00:00 2021-05-23 10:00:00 Outpatient R [facility] [id number] [facility] 2021-05-23 10:00:00 2021-05-23 10:00:00 Outpatient R [facility] [id number] [facility] 2021-05-23 00:00:00 2021-05-23 00:00:00 Patient Secure Claudette Hinds [facility] MEDICAL OFFICE BUILDING 1.2.840.114 350.1.13.10 4.2.7.2.686 [id number] [facility] 2021-05-16 09:00:00 2021-05-16 09:00:00 Outpatient R ADOLFOZAMZAM TETO [facility] [id number] [facility] 2021-05-12 00:00:00 2021-05-12 00:00:00 Orders Only Doctor Unassigned, [place] [facility] 1.2.840.114 350.1.13.10 4.2.7.2.686 [id number] [facility] 2021-05-10 13:00:00 2021-05-10 13:00:00 Outpatient R CLAUDETTE EVANS [facility] [id number] [facility] 2021-05-10 13:00:00 2021-05-10 13:00:00 Outpatient R CLAUDETTE EVANS [facility] [id number] [facility] 2021-05-09 00:00:00 2021-05-09 00:00:00 Telephone Prasanna [facility]argas [facility] BU[facility] 1.2.840.114 350.1.13.10 4.2.7.2.686 [id number] [facility] 2021-05-09 00:00:00 2021-05-09 00:00:00 Patient Secure Msg DelroyRad [facility] BU[facility] 1.2840.114 350.1.13.10 4.2.7.2.686 [id number] [facility] 2021-05-08 16:00:00 2021-05-08 16:00:00 Outpatient JE CRABTREE [facility] [id number] [facility] 2021-05-08 16:00:00 2021-05-08 16:00:00 Outpatient JE CRABTREE [facility] [id number] [facility] 2021-05-08 00:00:00 2021-05-08 00:00:00 Patient Secure Msg SerraRad [facility] BUILD[facility] 1.2.840.114 350.1.13.10 4.2.7.2.686 [id number] [id number] [facility] 2021-05-08 00:00:00 2021-05-08 00:00:00 Patient Secure Msg Rad Serra [facility] BUILD[facility] 1.2.840.114 350.1.13.10 4.2.7.2.686 [id number] 059 [id number] [facility] 2021-05-04 00:00:00 2021-05-04 00:00:00 Patient Secure Msg SerraRad [facility] BUILD[facility] 1.2.840.114 350.1.13.10 4.2.7.2.686 [id number] [facility] 2021-05-04 00:00:00 2021-05-04 00:00:00 Patient Secure [facility] 1.2.840.114 350.1.13.10 4.2.7.2.686 [id number] [facility] 2021-05-03 11:15:36 2021-05-03 23:59:00 Outpatient R [facility] [id number] [facility] 2021-05-03 11:15:36 2021-05-03 23:59:00 Hospital En[facility] 1..840.114 350.1.13.10 4.2.7.2.686 [id number] [facility] 2021-05-03 00:00:00 2021-05-03 00:00:00 Telephone Cristina Carmelinatainabonnie Cannon [facility] TO[facility] MEDICAL OFFICE BUILDING 1..840.114 350.1.13.10 4.2.7.2.686 [id number] 044 [id number] [facility] 2021-05-02 00:00:00 2021-05-02 00:00:00 Telephone Rad Serra [facility] BUILDING 1.2.840.114 350.1.13.10 4.2.7.2.686 [id number] [id number] [facility] 2021-05-02 00:00:00 2021-05-02 00:00:00 Patient Secure Claudette Hinds [facility] MEDICAL OFFICE BUILDING 1.2.840.114 350.1.13.10 4.2.7.2.686 [id number] 044 [id number] [facility] 2021-05-02 00:00:00 2021-05-02 00:00:00 Telephone Claudette Evans [facility] MEDICAL OFFICE BUILDING 1..840.114 350.1.13.10 4.2.7.2.686 [id number] 044 [id number] [facility] 2021-05-02 00:00:00 2021-05-02 00:00:00 Patient Secure Msg Delroy Rad RauschPaulo. [facility] 1..840.114 350.1.13.10 4.2.7.2.686 [id number] 059 [id number] [facility] 2021-05-02 00:00:00 2021-05-02 00:00:00 Patient Secure Msg Claudette Evans [facility] MEDICAL OFF[facility] BUILDING 1..840.114 350.1.13.10 4.2.7.2.686 [id number] 044 [id number] [facility] 2021-04-28 00:00:00 2021-04-28 00:00:00 Patient Secure Msg Claudette Evans [facility] MEDICAL OFFICE BUILDING 1.2.840.114 350.1.13.10 4.2.7.2.686 [id number] 044 [id number] [facility] 2021-04-27 14:24:00 2021-04-27 15:49:00 Emergency X MAGGIE HAMILTON [facility] [id number] [facility] 2021-04-27 14:24:00 2021-04-27 15:49:00 Emergency Maggie Hamilton [facility] 1.2.840.114 350.1.13.10 4.2.7.2.686 [id number] [facility] 2021-04-27 11:15:00 2021-04-27 11:30:00 Laboratory Only Only, Ang Db Test Unknown, Attending Thony Johnson [facility] MEDICAL OFF[facility] BUILDING 1.2840.114 350.1.13.10 4.2.7.2.686 [id number] [facility] 2021-04-27 11:15:00 2021-04-27 11:15:00 Outpatient R THONY JOHNSON [facility] [id number] [facility] 2021-04-27 00:00:00 2021-04-27 00:00:00 Orders Only Doctor Unassigned, [place] [facility] 1.284.114 350.1.13.10 4.2.7.2.686 [id number] [facility] 2021-04-20 15:00:00 2021-04-20 15:00:00 Outpatient EDER RENEE [facility] [id number] [facility] 2021-04-13 00:00:00 2021-04-13 00:00:00 Patient Secure Msg [place]Carmelina ibrahimtainabonnie Cannon [facility] MEDICAL OFFICE BUILDING 1.2840.114 350.1.13.10 4.2.7.2.686 [id number] 044 [id number] [facility] 2021-04-12 00:00:00 2021-04-12 00:00:00 Telephone Cristina Carmelinarico Kassandra [facility] TO[facility] MEDICAL OFFICE BUILDING 1.284.114 350.1.13.10 4.2.7.2.686 [id number] [id number] [facility] 2021-03-27 00:00:00 2021-03-27 00:00:00 Telephone Prasanna Vargas [facility] BUILDING 1.284.114 350.1.13.10 4.2.7.2.686 [id number] [facility] 2021-03-24 00:00:2021-03-24 00:00:00 Patient Secure Msg Doctor Unassigned, [place] [facility] 1.840.114 350.1.13.10 4.2.7.2.686 [id number] [facility] 2021-03-23 13:30:00 2021-03-23 13:30:00 Outpatient R PINO HOFF [facility] [id number] [facility] 2021-03-23 13:30:00 2021-03-23 13:30:00 [facility] [id number] [facility] 2021-03-22 09:20:00 2021-03-22 09:20:00 Out[facility] [id number] [facility] 2021-03-22 09:20:00 2021-03-22 09:20:00 Outpatient R ADITYA MEEKS STRANYEz [facility] [id number] [facility] 2021-03-20 00:00:00 2021-03-20 00:00:00 Outpatient CLAUDETTE CEDILLO [facility] [id number] [facility] 2021-03-18 00:00:00 2021-03-18 00:00:00 Case Management Claudette Evans [facility] MEDICAL OFFICE BUILDING 1..840.114 350.1.13.10 4.2.7.2.686 [id number] [facility] 2021-03-16 11:16:07 2021-03-16 11:31:07 Revenue Inspector Visit Lab, Filippo - Claudette Goodson [facility] MEDICAL OFFICE BUILDING 1..840.114 350.1.13.10 4.2.7.2.686 [id number] [facility] 2021-03-16 11:30:00 2021-03-16 11:30:00 Outpatient R CLAUDETTE EVANS [facility] [id number] [facility] 2021-03-16 11:00:00 2021-03-16 11:14:45 Outpatient R CLAUDETTE EVANS [facility] [id number] [facility] 2021-03-16 10:00:58 2021-03-16 11:14:45 Office Visit Claudette Evans [facility] ANGLEDAYAMI [facility] MEDICAL OFF[facility] BUILDING 1.2.840.114 350.1.13.10 4.2.7.2.686 [id number] [facility] 2021-03-16 00:00:00 2021-03-16 00:00:00 Patient Secure Msg Claudette Evans [facility] LULU [facility] MEDICAL OFFICE BUILDING 1.2.840.114 350.1.13.10 4.2.7.2.686 [id number] [facility] 2021-03-02 16:15:00 2021-03-02 16:15:00 Outpatient R CRISTINACARMELINA IBRAHIMTAINABONNIE [facility] [id number] [facility] 2021-02-28 18:30:00 2021-02-28 18:30:00 Outpatient R ILEANA MEDRANO [facility] [id number] [facility] 2021-02-28 00:00:00 2021-02-28 00:00:00 Telephone [facility]Tessa [facility] Medical Office Building 1.2.840.114 350.1.13.10 4.2.7.2.686 [id number] [facility] 2021-02-27 09:00:00 2021-02-27 09:00:00 Outpatient R AMELIA HAMMOND [facility] [id number] [facility] 2021-02-23 00:00:00 2021-02-23 00:00:00 Telephone [facility]?Tessa [facility] Medical Office Building 1.2.840.114 350.1.13.10 4.2.7.2.686 [id number] [facility] 2021-02-10 18:12:00 2021-02-10 23:39:00 Emergency Kaycee Méndez [place] 1.2.840.114 350.1.13.10 4.2.7.2.686 [id number] [facility] 2021-02-10 00:00:00 2021-02-10 00:00:00 Patient Secure Msg Branden [facility] 1.2.840.114 350.1.13.10 4.2.7.2.686 [id number] [facility] 2021-02-10 00:00:00 2021-02-10 00:00:00 Patient Secure Msg [facility] 1.2.840.114 350.1.13.10 4.2.7.2.686 [id number] [facility] 2021-02-10 00:00:00 2021-02-10 00:00:00 Patient Secure Msg Branden [facility]ful [facility] 1.2.840.114 350.1.13.10 4.2.7.2.686 [id number] [facility] 2021-02-10 00:00:00 2021-02-10 00:00:00 Patient Secure Msg [facility]ful [facility] 1.2.840.114 350.1.13.10 4.2.7.2.686 [id number] [facility] 2021-02-09 13:40:00 2021-02-09 23:59:00 Hospital Encounter [facility] Medical Office Building 1.2.840.114 350.1.13.10 4.2.7.2.686 [id number] [facility] 2021-02-09 13:49:05 2021-02-09 14:04:05 Revenue Inspector Visit Lab, [facility] [place] [facility]ette [facility] Office Building 1..840.114 350.1.13.10 4.2.7.2.686 [id number] [facility] 2021-02-09 12:23:13 2021-02-09 13:47:12 Office Visit [facility] Office Building 1..840.114 350.1.13.10 4.2.7.2.686 [id number] [facility] 2021-02-09 13:00:00 2021-02-09 13:00:00 Outpatient R CRISTINACARMELINA IBRAHIMRICO [facility] [id number] [facility] 2021-02-09 00:00:00 2021-02-09 00:00:00 Patient Secure Msg Doctor Unassigned, [facility] [place] 1..840.114 350.1.13.10 4.2.7.2.686 [id number] [facility] 2021-02-08 10:20:00 2021-02-08 10:20:00 Outpatient ADITYA FRAUSTO STRAHIL [facility] [id number] [facility] 2021-02-07 00:00:00 2021-02-07 00:00:00 Patient Secure Msg Claudette Evans [facility] TOÑO?[facility] OFF[facility] BUILDING 1.2.840.114 350.1.13.10 4.2.7.2.686 [id number] [facility] 2021-02-02 10:30:00 2021-02-02 10:30:00 Outpatient SKYLAR CEBALLOS [facility] [id number] [facility] 2021-02-02 00:00:00 2021-02-02 00:00:00 Telephone Claudette [facility] Medical Office Building 1.840.114 350.1.13.10 4.2.7.2.686 [id number] [id number] [facility] 2021-02-01 08:30:00 2021-02-01 08:30:00 Outpatient SKYLAR CEBALLOS [facility] [id number] [facility] 2021-01-31 18:44:04 2021-01-31 19:41:26 Urgent Care Noelle Boy[facility]any [facility] Medical Office Building 1.840.114 350.1.13.10 4.2.7.2.686 [id number] [facility] 2021-01-31 19:00:00 2021-01-31 19:00:00 Outpatient R FLACO BOYD [facility] [id number] [facility] 2021-01-31 00:00:00 2021-01-31 00:00:00 Telephone Claudette Evans [facility] Medical Office Building 1.840.114 350.1.13.10 4.2.7.2.686 [id number] 044 [id number] [facility] 2021-01-31 00:00:00 2021-01-31 00:00:00 Patient Secure Msg [facility] 1.840.114 350.1.13.10 4.2.7.2.686 [id number] [facility] 2021-01-30 00:00:00 2021-01-30 00:00:[address] [facility] nal Building 1..840.114 350.1.13.10 4.2.7.2.686 [id number] [id number] [facility] 2021-01-30 00:00:00 2021-01-30 00:00:00 Patient Secure Msg Claudette Evans [facility] OFF[facility] BUILDING ONE 1..840.114 350.1.13.10 4.2.7.2.686 [id number] [facility] 2021-01-26 14:00:00 2021-01-26 14:00:00 Outpatient R RAD SERRA [facility] [id number] [facility] 2021-01-26 00:00:00 2021-01-26 00:00:00 Patient Secure Msg Skylar Groves [facility] TO[facility]O?[facility] 1..840.114 350.1.13.10 4.2.7.2.686 [id number] 044 [id number] [facility] 2021-01-25 15:00:00 2021-01-25 15:00:00 Outpatient R [facility] [id number] [facility] 2021-01-21 00:00:00 2021-01-21 00:00:00 Patient Secure Msg Skylar Groves [facility] 1..840.114 350.1.13.10 4.2.7.2.686 [id number] [facility] 2021-01-20 16:51:22 2021-01-20 17:12:41 Telemedici ne Visit Skylar Groves [facility] Toño?[facility] Medical Office Building 1.840.114 350.1.13.10 4.2.7.2.686 [id number] 044 [id number] [facility] 2021-01-20 16:30:00 2021-01-20 16:30:00 Outpatient R NOE GROVESE [facility] [id number] [facility] 2021-01-19 10:15:00 2021-01-19 10:15:00 Outpatient R KAYLEY GARCÍA [facility] [id number] [facility] 2021-01-14 00:00:00 2021-01-14 00:00:00 Case Management Kassandra Robledo [facility] [place] 1..114 350.1.13.10 4.2.7.2.686 [id number] [facility] 2021-01-14 00:00:00 2021-01-14 00:00:00 Patient Secure Msg Doctor Unassigned, [place] [facility] [place] 1..114 350.1.13.10 4.2.7.2.686 [id number] 019 [id number] [facility] 2021-01-12 16:10:00 2021-01-12 19:45:00 Emergency Karin Matthews [place] 1.840.114 350.1.13.10 4.2.7.2.686 [id number] [facility] 2021-01-12 15:20:00 2021-01-12 15:20:00 Outpatient R ILEANA MEDRANO [facility] [id number] [facility] 2021-01-12 14:46:57 2021-01-12 15:06:57 Urgent Care Thony Johnson [facility] Medical Office Building 1.84.114 350.1.13.10 4.2.7.2.686 [id number] [facility] 2020-12-26 15:30:00 2020-12-26 16:13:32 Outpatient R REENA SERRAZOHRA [facility] [id number] [facility] 2020-12-26 15:30:00 2020-12-26 16:13:32 Office Visit Rad Serra KayceePilarPauloPilar [facility] BUILDING 1.2.840.114 350.1.13.10 4.2.7.2.686 [id number] [id number] [facility] 2020-12-26 15:00:32 2020-12-26 16:13:32 Office Visit Rad SerraPauloPilar [facility] Building 1.2.840.114 350.1.13.10 4.2.7.2.686 [id number] [facility] 2020-12-26 15:30:00 2020-12-26 15:30:00 Outpatient R REENA SERRAZOHRA [facility] [id number] [facility] 2020-11-29 00:00:00 2020-11-29 00:00:00 Patient Secure Msg Serra Rad KayceePilarPauloPilar [facility] BUILDING 1.2.840.114 350.1.13.10 4.2.7.2.686 [id number] [id number] [facility] 2020-11-22 11:00:00 2020-11-22 11:00:00 Outpatient R CELINA MIXON [facility] [id number] [facility] 2020-11-10 18:42:46 2020-11-10 19:53:43 Urgent Care Alissa Collins [facility] Office Building One 1.2.840.114 350.1.13.10 4.2.7.2.686 [id number] 2020-11-10 19:00:00 2020-11-10 19:00:00 Outpatient R [facility] [id number] [facility] 2020-10-31 18:52:00 2020-10-31 22:15:00 Emergency Kaycee Méndez [facility] 1.2.840.114 350.1.13.10 4.2.7.2.686 [id number] 2020-10-31 19:00:00 2020-10-31 19:00:00 Outpatient Farzana KAUR CARI [facility] [id number] [facility] 2020-10-31 00:00:00 2020-10-31 00:00:00 Orders Only Doctor Unassigned, [place] [facility] 1.2.840.114 350.1.13.10 4.2.7.2.686 [id number] 2020-10-20 14:02:00 2020-10-20 17:13:00 Emergency Kaycee Méndez [facility] 1.2.840.114 350.1.13.10 4.2.7.2.686 [id number] 2020-10-18 00:00:00 2020-10-18 00:00:00 Patient Secure Msg [facility] 1.2.840.114 350.1.13.10 4.2.7.2.686 [id number] [facility] 2020-10-14 10:00:00 2020-10-14 23:59:00 Hospital Encounter Prasanna Vargas [facility] 1.2.840.114 350.1.13.10 4.2.7.2.686 [id number] 2020-10-14 13:30:00 2020-10-14 13:30:00 Outpatient CELINA STONE [facility] [id number] [facility] 2020-10-11 00:00:00 2020-10-11 00:00:00 Patient Secure Msg [facility] 1.2.840.114 350.1.13.10 4.2.7.2.686 [id number] [facility] 2020-10-11 00:00:00 2020-10-11 00:00:00 Patient Secure Msg [facility] 1.2.840.114 350.1.13.10 4.2.7.2.686 [id number] 134 [id number] [facility] 2020-10-09 12:00:00 2020-10-09 15:57:00 Emergency Anna Kim [place] 1.2.840.114 350.1.13.10 4.2.7.2.686 [id number] 2020-10-07 00:00:00 2020-10-07 00:00:00 Patient Secure Msg Prasanna Vargas [facility] BUILDING 1.2.840.114 350.1.13.10 4.2.7.2.686 [id number] 134 [id number] [facility] 2020-10-07 00:00:00 2020-10-07 00:00:00 Patient Secure Msg Prasanna Vargas [facility] BUILD[facility] 1.2.840.114 350.1.13.10 4.2.7.2.686 [id number] 134 [id number] [facility] 2020-10-07 00:00:00 2020-10-07 00:00:00 Patient Secure Msg [facility] 1.2.840.114 350.1.13.10 4.2.7.2.686 [id number] 134 [id number] [facility] 2020-10-07 00:00:00 2020-10-07 00:00:00 Patient Secure Msg [facility] 1.2.840.114 350.1.13.10 4.2.7.2.686 [id number] 134 [id number] [facility] 2020-10-07 00:00:00 2020-10-07 00:00:00 Patient Secure Msg [facility] 1.2.840.114 350.1.13.10 4.2.7.2.686 [id number] 134 [id number] [facility] 2020-10-07 00:00:00 2020-10-07 00:00:00 Patient Secure Msg [facility] 1.2.840.114 350.1.13.10 4.2.7.2.686 [id number] 134 [id number] [facility] 2020-10-07 00:00:00 2020-10-07 00:00:00 Patient Secure Msg [facility] 1.2.840.114 350.1.13.10 4.2.7.2.686 [id number] [facility] 2020-10-06 08:53:00 2020-10-06 09:46:44 Office Visit Prasanna Vargas [facility] Building 1.2.840.114 350.1.13.10 4.2.7.2.686 [id number] 134 [id number] 2020-10-06 09:30:00 2020-10-06 09:30:00 Outpatient PRASANNA LOOMIS [facility] [id number] [facility] 2020-10-04 14:00:00 2020-10-04 14:00:00 Outpatient CELINA STONE [facility] [id number] [facility] 2020-09-30 10:30:00 2020-09-30 10:30:00 Outpatient CELINA STONE [facility] [id number] [facility] 2020-09-29 13:45:00 2020-09-29 13:45:00 Outpatient R JASPALPREET [facility] [id number] [facility] 2020-09-06 15:30:00 2020-09-06 15:30:00 Outpatient R PRASANNA VARGAS [facility] [id number] [facility] 2020-09-05 00:00:00 2020-09-05 00:00:00 Patient Secure Prasanna Kang [facility] PROFESSIO NAL BUILDING 1.2.840.114 350.1.13.10 4.2.7.2.686 [id number] 134 [id number] [facility] 2020-09-02 15:40:00 2020-09-02 15:40:00 Outpatient DARRION QUIROZ HOWARD [facility] [id number] [facility] 2020-08-31 10:30:00 2020-08-31 10:30:00 Outpatient R RAD SERRA [facility] [id number] [facility] 2020-08-31 00:00:00 2020-08-31 00:00:00 Patient Secure Prasanna Kang [facility] PROFESSIO NAL BUILDING 1.2.840.114 350.1.13.10 4.2.7.2.686 [id number] 134 [id number] [facility] 2020-08-18 09:30:00 2020-08-18 09:30:00 Outpatient R ALICIAPRASANNA [facility] [id number] [facility] 2020-08-11 13:30:00 2020-08-11 13:30:00 Outpatient R ALICIA PRASANNA [facility] [id number] [facility] 2020-08-04 14:00:00 2020-08-04 14:00:00 Outpatient R EDER FLETCHER [facility] [id number] [facility] 2020-07-28 10:30:00 2020-07-28 10:30:00 Outpatient R RAD SERRA [facility] [id number] [facility] 2020-06-30 16:15:00 2020-06-30 16:15:00 Outpatient R CRISTINA CLAUDETTE [facility] [id number] [facility] 2020-06-17 15:00:00 2020-06-17 15:00:00 Outpatient DARRION QUIROZ HOWARD [facility] [id number] [facility] 2020-06-16 15:30:00 2020-06-16 15:30:00 Outpatient R RAD SERRA [facility] [id number] [facility] 2020-06-09 12:30:00 2020-06-09 12:30:00 Outpatient NI YUNG [facility] [id number] [facility] 2020-06-08 08:00:00 2020-06-08 08:00:00 Outpatient R NI DISAL [facility] [id number] [facility] 2020-06-02 09:00:00 2020-06-02 09:00:00 Outpatient R RAD SERRA [facility] [id number] [facility] 2020-05-28 10:00:00 2020-05-28 10:00:00 Outpatient R CARI KAUR [facility] [id number] [facility] 2020-05-26 00:00:00 2020-05-26 00:00:00 Patient Secure Msg Carmelina Evansrico [facility] 1.2.840.114 350.1.13.10 4.2.7.2.686 [id number] [facility] 2020-05-24 10:00:00 2020-05-24 10:00:00 Outpatient NI YUNG [facility] [id number] [facility] 2020-05-24 00:00:00 2020-05-24 00:00:00 Patient Secure Msg Doctor Unassigned, [place] [facility] BUILDING 1.2.840.114 350.1.13.10 4.2.7.2.686 [id number] [facility] 2020-05-19 16:30:00 2020-05-19 16:30:00 Outpatient R OSITO HITCHCOCK [facility] [id number] [facility] 2020-05-17 13:00:00 2020-05-17 13:00:00 Outpatient DARRION QUIROZ HOWARD [facility] [id number] [facility] 2020-05-16 16:00:00 2020-05-16 16:00:00 Outpatient R CLAUDETTE EVANS [facility] [id number] [facility] 2020-05-09 00:00:00 2020-05-09 00:00:00 Patient Secure Claudette Hinds [facility] OFFICE BUILDING ONE 1.2.840.114 350.1.13.10 4.2.7.2.686 [id number] [facility] 2020-05-08 10:24:00 2020-05-08 13:03:00 Emergency X OLAMIDE GARVIN [facility] ERT [id number] [facility] 2020-05-03 15:00:00 2020-05-03 15:00:00 Outpatient R CLAUDETTE EVANS [facility] [id number] [facility] 2020-04-30 11:14:00 2020-05-01 15:50:00 Outpatient X RODRIGUEZ HOFF [facility] [place] [id number] [facility] 2020-04-30 10:20:00 2020-04-30 10:20:00 Outpatient R ROSALES SHAY [facility] [id number] [facility] 2020-04-30 10:15:00 2020-04-30 10:15:00 Outpatient R ROSALES SHAY [facility] [id number] [facility] 2020-04-29 00:00:00 2020-04-29 00:00:00 Patient Secure Heaven Rodriguessir [facility] 1.114 350.1.13.10 4.2.7.2.686 [id number] [facility] 2020-04-28 14:00:00 2020-04-28 14:00:00 Outpatient R JACK OSITO [facility] [id number] [facility] 2020-04-25 16:15:00 2020-04-25 16:15:00 Outpatient R CLAUDETTE EVANS [facility] [id number] [facility] 2020-04-22 00:00:00 2020-04-22 00:00:00 Patient Secure Msg Eder [facility] 1.84.114 350.1.13.10 4.2.7.2.686 [id number] [facility] 2020-04-18 10:00:00 2020-04-18 10:00:00 Outpatient Farzana HITCHCOCK OSITO [facility] [id number] [facility] 2020-04-15 10:30:00 2020-04-15 10:30:00 Outpatient RAD MATAMOROS [facility] [id number] [facility] 2020-04-12 13:38:00 2020-04-13 16:25:00 [facility] [id number] [facility] 2020-03-17 16:15:00 2020-03-17 16:15:00 Outpatient TETO BRANTLEY [facility] [id number] [facility] 2020-03-04 00:00:00 2020-03-04 00:00:00 Reftina Hitchcock Osito [facility] 1.114 350.1.13.10 4.2.7.2.686 [id number] 2020-02-25 16:00:00 2020-02-25 16:00:00 Outpatient R OSITO HITCHCOCK [facility] [id number] [facility] 2020 14:00:00 2020 14:00:00 Outpatient R TETO CARNES [facility] [id number] [facility] 2020-02-08 10:30:00 2020-02-08 10:30:00 Outpatient R PRASANNA VARGAS [facility] [id number] [facility] 2020-02-05 00:00:00 2020-02-05 00:00:00 [facility] 1.2.840.114 350.1.13.10 4.2.7.2.686 [id number] [facility] 2020-02-04 13:30:00 2020-02-04 13:30:00 Outpatient R OSITO HITCHCOCK [facility] [id number] [facility] 2020-01-23 10:15:00 2020-01-23 10:15:00 Outpatient R [facility] [id number] [facility] 2020-01-21 13:00:00 2020-01-21 13:00:00 Outpatient R OSITO HITCHCOCK [facility] [id number] [facility] 2020-01-14 16:00:00 2020-01-14 16:00:00 Outpatient R OSITO HITCHCOCK [facility] [id number] [facility] 2020-01-05 13:45:00 2020-01-05 13:45:00 Outpatient R PRASANNA VARGAS [facility] [id number] [facility] 2020-01-05 00:00:00 2020-01-05 00:00:00 Patient Secure Msg Prasanna Vargas [facility] 1.2.840.114 350.1.13.10 4.2.7.2.686 [id number] [facility] 2019-12-03 10:30:00 2019-12-03 10:30:00 Outpatient R ELAMALIKSOPHIACRICKET [facility] [id number] [facility] 2019-11-27 11:00:00 2019-11-27 11:00:00 Outpatient Farzana MANUELCHRISTOPHERTETO WYMAN [facility] [id number] [facility] 2019-11-26 00:00:00 2019-11-26 00:00:00 Patient Secure Msg Doctor Unassigned, [place] [facility] 1..840.114 350.1.13.10 4.2.7.2.686 [id number] [facility] 2019-11-25 08:00:00 2019-11-25 08:00:00 Outpatient Farzana CANRES [facility] [id number] [facility] 2019-11-23 00:00:00 2019-11-23 00:00:00 Patient Secure Msg Doctor Unassigned, [place] [facility] BUILDING 1..840.114 350.1.13.10 4.2.7.2.686 [id number] 134 [id number] [facility] 2019-11-18 10:00:00 2019-11-18 10:00:00 Outpatient Farzana CARNESTETO [facility] [id number] [facility] 2019-11-17 00:00:00 2019-11-17 00:00:00 Patient Secure Msg Doctor Unassigned, [place] [facility] BU[facility] 1.2.840.114 350.1.13.10 4.2.7.2.686 [id number] [facility] 2019-11-13 00:00:00 2019-11-13 00:00:00 Patient Secure Msg Prasanna [facility]argas [facility] BU[facility] 1.2.840.114 350.1.13.10 4.2.7.2.686 [id number] 134 [id number] [facility] 2019-09-02 11:00:00 2019-09-02 11:00:00 Outpatient R CRICKET TAYLOR [facility] [id number] [facility] 2019-08-14 10:15:00 2019-08-14 10:15:00 Outpatient R TETO CARNES [facility] [id number] [facility] 2019-08-13 11:00:00 2019-08-13 11:00:00 Outpatient R CRICKET TAYLOR [facility] [id number] [facility] 2019-08-12 09:00:00 2019-08-12 09:00:00 Outpatient R [facility] [id number] [facility] 2019-07-20 16:06:00 2019-07-20 16:06:00 Outpatient P PRASANNA VARGAS [facility] [id number] [facility] 2019-07-20 08:15:00 2019-07-20 08:15:00 Outpatient R CRICKET TAYLOR [facility] [id number] [facility] 2019-07-13 08:00:00 2019-07-13 08:00:00 Outpatient R CRICKET TAYLOR [facility] [id number] [facility] 2019-07-12 13:39:00 2019-07-12 13:39:00 Outpatient P PRASANNA VARGAS [facility] [id number] [facility] 2019-07-06 13:00:00 2019-07-06 13:00:00 Outpatient R CRICKET TAYLOR [facility] [id number] [facility] 2019-06-13 10:40:46 2019-06-13 12:35:00 Emergency X SARAHI AVILA [facility] E[facility] [id number] [facility] 2019-05-13 23:07:00 2019-05-14 09:15:00 Outpatient P PRASANNA VARGAS [facility] [id number] [facility] Results Test Description Test Time Test Comments Results Result Co mments Source [facility] 16:39:24* Test Item Value Reference Range Interpretation Comme nts LIPASE (test code = 4755740511) 40 U/L 0-220 Lab Interpretation (test cod e = 01701-6) Normal [facility]EN PELVIS W [id number] 16:27:28EXAM: CT ABDOMEN PELVIS W CONTRAST HISTORY: [...] hypodensity isseen within the right gluteal soft tissue.[facility] CBC WITH [id number] 16:14:18* Test Item Value Reference Range Interpretation Comme nts WBC (test code = 6690-2) 6.32 See_Comment [Automated [employer]] The system which generated this result [...] 34.1 g/dL 31.6-35.1 RDW-SD (test code = 90181-7) 42.0 fL 39.0-49.9 RDW-CV (test code = 788-0) 13.0 % 12.0-15.5 PLT (test code = 777-3) 369 See_Comment H [Automated messa ge] The system which generated this result transmitted reference range: 166 - 358 10*3/?L. The reference range was not used to interpret this result as normal/abnormal. MPV (test code = 75226-7) 9.9 fL 9.5-12.9 NRBC/100 WBC (test code = 5039544727) 0.0 See_Comment [Automated [employer] ssage] The system which generated this result transmitted reference range: 0.0 - 10.0 /100 WBCs. The reference range was not used to interpret this result as normal/abnormal. NRBC x10^3 (test code = 5302846431) See_Comment [Automated [employer] ge] The system which generated this result transmitted reference range: 10*3/?L. The reference range was not used to interpret this result as normal/abnormal. GRAN MAT (NEUT) % (test code = 770-8) 64.8 % IMM GRAN % (test code = 7344708381) 0.50 % LYMPH % (test code = 736-9) 25.3 % MONO % (test code = 5905-5) 4.1 % EOS % (test code = 713-8) 4.7 % BASO % (test code = 706-2) 0.6 % GRAN MAT x10^3(ANC) (test code = 9870374406) 4.09 10*3/uL 1.88-7.09 IMM GRAN x10^3 (test code = 4472529526) 0.03 10*3/uL 0.00-0.06 LYMPH x10^3 (test code = 731-0) 1.60 10*3/uL 1.32-3.29 MONO x10^3 (test code = 742-7) 0.26 10*3/uL 0.33-0.92 L EOS x10^3 (test code = 711-2) 0.30 10*3/uL 0.03-0.39 BASO x10^3 (test code = 704-7) 0.04 10*3/uL 0.01-0.07 Lab Interpretation (test code = 13604-6) [id number] 15:31:00* Test Item Value Reference Range Interpretation Comme nts POCT PREG (test code = 1605) Negative On board controls acceptable with C Line (test code = 3574) Yes POCT PREG LOT # (test code = 3575) [id number] POCT PREG TEST DATE ( test code = 3576) 2024-07-21 Lab Interpretation (test cod e = 82180-3) Normal [facility] WITH [id number] 04:28:47* Test Item Value Reference Range Interpretation Comme nts WBC (test code = 6690-2) 5.45 See_Comment [Automated [employer]] The system which generated this result [...] 34.0 g/dL 31.6-35.1 RDW-SD (test code = 54224-7) 40.3 fL 39.0-49.9 RDW-CV (test code = 788-0) 13.1 % 12.0-15.5 PLT (test code = 777-3) 307 See_Comment [Automated messa ge] The system which generated this result transmitted reference range: 166 - 358 10*3/?L. The reference range was not used to interpret this result as normal/abnormal. MPV (test code = 80579-2) 11.0 fL 9.5-12.9 NRBC/100 WBC (test code = 3828082159) 0.0 See_Comment [Automated [employer] ssage] The system which generated this result transmitted reference range: 0.0 - 10.0 /100 WBCs. The reference range was not used to interpret this result as normal/abnormal. NRBC x10^3 (test code = 6628207294) See_Comment [Automated [employer]] The system which generated this result transmitted reference range: 10*3/?L. The reference range was not used to interpret this result as normal/abnormal. GRAN MAT (NEUT) % (test code = 770-8) 52.0 % IMM GRAN % (test code = 0788277999) 0.20 % LYMPH % (test code = 736-9) 38.0 % MONO % (test code = 5905-5) 4.6 % EOS % (test code = 713-8) 4.6 % BASO % (test code = 706-2) 0.6 % GRAN MAT x10^3(ANC) (test code = 2724899479) 2.84 10*3/uL 1.88-7.09 IMM GRAN x10^3 (test code = 4765766707) 0.00-0.06 LYMPH x10^3 (test code = 731-0) 2.07 10*3/uL 1.32-3.29 MONO x10^3 (test code = 742-7) 0.25 10*3/uL 0.33-0.92 L EOS x10^3 (test code = 711-2) 0.25 10*3/uL 0.03-0.39 BASO x10^3 (test code = 704-7) 0.03 10*3/uL 0.01-0.07 Lab Interpretation (test code = 38090-3) Abnormal [facility]. METABOLIC PANEL ([id number])2023-01-12 04:12:43* Test Item Value Reference Range Interpretation Comme nts NA (test code = 1502170948) 137 mmol/L 135-145 K (test code = 0617158645) 3.4 mmol/L 3.5-5.0 L CL (test code = 4242904895) 104 mmol/L 98-108 CO2 TOTAL (test code = 3757203238) 24 mmol/L 23-31 AGAP (test code = 7927788771) 9 2-16 BUN (test code = 3823709006) 2 mg/dL 7-23 L GLUCOSE (test code = 5705044692) 92 mg/dL 70-110 CREATININE (test code = 6275201433) 0.80 mg/dL 0.50-1.04 TOTAL BILI (test code = 3012957999) 0.4 mg/dL 0.1-1.1 CALCIUM (test code = 0715973220) 8.4 mg/dL 8.6-10.6 L T PROTEIN (test code = 9943926299) 6.3 g/dL 6.3-8.2 ALBUMIN (test code = 0148412224) 3.7 g/dL 3.5-5.0 ALK PHOS (test code = 7182779588) 87 U/L 34-122 ALTv (test code = 1742-6) 27 U/L 5-35 AST(SGOT) (test code = 9488352704) 33 U/L 13-40 eGFR (test code = 0010664632) 86.0 mL/min/1.73m2 WESLEY (test code = WESLEY) [...] imaging tests). Lab Interpretation (test code = 67279-6) Abnormal [facility]. METABOLIC PANEL (23188)2023-01-12 04:12:43* Test Item Value Reference Range Interpretation Comme nts NA (test code = 0238474349) 137 mmol/L 135-145 K (test code = 1980616321) 3.4 mmol/L 3.5-5.0 L CL (test code = 9069730389) 104 mmol/L 98-108 CO2 TOTAL (test code = 6592887382) 24 mmol/L 23-31 AGAP (test code = 6128859784) 9 2-16 BUN (test code = 3577817009) 2 mg/dL 7-23 L GLUCOSE (test code = 3132351852) 92 mg/dL 70-110 CREATININE (test code = 1297211721) 0.80 mg/dL 0.50-1.04 TOTAL BILI (test code = 4103679769) 0.4 mg/dL 0.1-1.1 CALCIUM (test code = 4785162285) 8.4 mg/dL 8.6-10.6 L T PROTEIN (test code = 6257880253) 6.3 g/dL 6.3-8.2 ALBUMIN (test code = 9575132643) 3.7 g/dL 3.5-5.0 ALK PHOS (test code = 0754072704) 87 U/L 34-122 ALTv (test code = 1742-6) 27 U/L 5-35 AST(SGOT) (test code = 8945248639) 33 U/L 13-40 eGFR (test code = 9653855602) 86.0 mL/min/1.73m2 WESLEY (test code = WESLEY) [...] imaging tests). Lab Interpretation (test code = 66936-6) Abnormal [facility] (QUANTITATIVE)2023-01-12 04:07:04 BETA HCG<2.39Non- female and male patients: <5 mIU/mL01/11/2023 11:07 PM [facility] Gestational Age ?Range (mIU/mL) 1-10 ?Weeks ?[id number] Weeks ?60201-27088377-92 Weeks ?1082-71352919-90 Weeks ?1531-224122 Biotin has been reported to cause a negative bias, interpret results relative to patient's use of biotin. Gestational Age ?Range (mIU/mL) 1-10 ?Weeks ?[phone] Weeks ?88462-79580241-76 Weeks ?8698-64975954-65 Weeks?[id number] Biotin has been reported to cause a negative bias, interpret results relative to patient's use of biotin. Gestational Age ?Range (mIU/mL) 1-10 ?Weeks ?54-25416462-95 Weeks ?86072-02045930-51 Weeks ?0337-59672379-88 Weeks ?[id number] Biotin has been reported to cause a negative bias, interpretresults relative to [facility] 04:07:04BETA HCG<2.39Non- female and male patients: <5 mIU/mL01/11/2023 11:07 PM [facility] Gestational Age ?Range (mIU/mL) 1-10 ?Weeks ?67-81361476-60 Weeks ?12648-35965711-51 Weeks ?1457-53398778-91 Weeks ?1531-064953 Biotin has been reported to cause a negative bias, interpret results relative topatient's use of biotin. Gestational Age ?Range (mIU/mL) 1-10 ?Weeks ?62-84455793-02 Weeks ?33301-43713431-06 Weeks ?5509-96798685-68 Weeks?1531-245066 Biotin has been reported to cause a negative bias, interpret results relative to patient's use of biotin. Gestational Age ?Range (mIU/mL) 1-10 ?Weeks ?70-25461525-56 Weeks ?24290-60346861-67 Weeks ?1894-40155371-82 Weeks ?1531-388900 Biotin has been reported to cause a negative bias, interpretresults relative to patient's use of biotin.[facility] 2023-01-12 03:22:58* Test Item Value Reference Range Interpretation Comme nts LIPASE (test code = 0424206845) 41 U/L 0-220 Lab Interpretation (test cod e = 14011-1) Normal [facility]2023-09-02 03:22:58* Test Item Value Reference Range Interpretation Comme nts LIPASE (test code = 0310039175) 41 U/L 0-220 Lab Interpretation (test cod e = 67029-6) Normal [facility] [id number] 03:02:00* Test Item Value Reference Range Interpretation Comme nts POCT PREG (test code = 1605) Negative On board controls acceptable with C Line (test code = 3574) Yes POCT PREG LOT # (test code = 3575) [id number] POCT PREG TEST DATE ( test code = 3576) 05/15/2024 Lab Interpretation (test cod e = 48547-8) Normal [facility] [id number] 03:02:00* Test Item Value Reference Range Interpretation Comme nts POCT PREG (test code = 1605) Negative On board controls acceptable with C Line (test code = 3574) Yes POCT PREG LOT # (test code = 3579) [id number] POCT PREG TEST DATE ( test code = 3576) 05/15/2024 Lab Interpretation (test cod e = 03691-5) Normal [facility] [id number] 00:23:34* Test Item Value Reference Range Interpretation Comme [facility] PREG SERUM (test code = 6853886073) Negative WESLEY (test code = WESLEY) Less than 10 IU/L. ?If low titer or ectopic is suspected, resubmit specimen in 48-72 hours. [facility] METABOLIC PANEL (37298)2022-07-31 23:58:12* Test Item Value Reference Range Interpretation Comme [facility] NA (test code = 5571116037) 140 mmol/L 135-145 K (test code = 6973521786) 3.6 mmol/L 3.5-5.0 CL (test code = 4565802234) 106 mmol/L 98-108 CO2 TOTAL (test code = 9679084157) 21 mmol/L 23-31 L AGAP (test code = 1185259268) 13 2-16 BUN (test code = 9867998288) 8 mg/dL 7-23 GLUCOSE (test code = 6120617259) 90 mg/dL 70-110 CREATININE (test code = 7185440932) 0.90 mg/dL 0.50-1.04 TOTAL BILI (test code = 4637909886) 0.5 mg/dL 0.1-1.1 CALCIUM (test code = 2442403443) 9.0 mg/dL 8.6-10.6 T PROTEIN (test code = 6064016177) 7.8 g/dL 6.3-8.2 ALBUMIN (test code = 4511301336) 4.6 g/dL 3.5-5.0 ALK PHOS (test code = 7346803591) 63 U/L 34-122 ALTv (test code = 1742-6) 23 U/L 5-35 AST(SGOT) (test code = 2185991123) 27 U/L 13-40 eGFR (test code = 6184283613) 75.1 mL/min/1.73m2 WESLEY (test code = WESLEY) [...] imaging tests). Lab Interpretation (test code = 41968-4) [facility]normal [facility] 23:57:32* Test Item Value Reference Range Interpretation Comme nts LIPASE (test code = 9405808636) 55 U/L 0-220 Lab Interpretation (test cod e = 09626-9) Normal [facility] WITH [id number] 23:47:31* Test Item Value Reference Range Interpretation Comme nts WBC (test code = 6690-2) 5.64 See_Comment [[employer]] The system which generated this result transmitted reference range: 4.30 - 11.10 10*3/?L. The reference range was not used to interpret this result as normal/abnormal. RBC (test code = 789-8) 4.51 See_Comment [Automated messa ge] The system which [...] 32.6 g/dL 31.6-35.1 RDW-SD (test code = 73529-1) 42.5 fL 39.0-49.9 RDW-CV (test code = 788-0) 13.0 % 12.0-15.5 PLT (test code = 777-3) 339 See_Comment [[employer]] The system which generated this result transmitted reference range: 166 - 358 10*3/?L. The reference range was not used to interpret this result as normal/abnormal. MPV (test code = 90400-2) 9.4 fL 9.5-12.9 L NRBC/100 WBC (test code = 6244655860) 0.0 See_Comment [[employer] ssage] The system which generated this result transmitted reference range: 0.0 - 10.0 /100 WBCs. The reference range was not used to interpret this result as normal/abnormal. NRBC x10^3 (test code = 6072305454) See_Comment [[employer]] The system which generated this result transmitted reference range: 10*3/?L. The reference range was not used to interpret this result as normal/abnormal. GRAN MAT (NEUT) % (test code = 770-8) 51.2 % IMM GRAN % (test code = 5508482977) 0.20 % LYMPH % (test code = 736-9) 36.5 % MONO % (test code = 5905-5) 5.7 % EOS % (test code = 713-8) 5.9 % BASO % (test code = 706-2) 0.5 % GRAN MAT x10^3(ANC) (test code = 6502844624) 2.89 10*3/uL 1.88-7.09 IMM GRAN x10^3 (test code = 7414291140) 0.00-0.06 LYMPH x10^3 (test code = 731-0) 2.06 10*3/uL 1.32-3.29 MONO x10^3 (test code = 742-7) 0.32 10*3/uL 0.33-0.92 L EOS x10^3 (test code = 711-2) 0.33 10*3/uL 0.03-0.39 BASO x10^3 (test code = 704-7) 0.03 10*3/uL 0.01-0.07 Lab Interpretation (test code = 22009-8) [facility]normal [facility] [id number] 16:14:38* Test Item Value Reference Range Interpretation Comme nts POCT Molecular Strep (test c ode = 91070-2) Negative Negative Lab Interpretation (test cod e = 85562-9) Normal [facility] METABOLIC PANEL (46251)2022-05-05 19:35:37* Test Item Value Reference Range Interpretation Comme nts NA (test code = 1353774662) 139 mmol/L 135-145 K (test code = 6977044855) 4.4 mmol/L 3.5-5.0 CL (test code = 8546243990) 104 mmol/L 98-108 CO2 TOTAL (test code = 0357210671) 22 mmol/L 23-31 L AGAP (test code = 7772488988) 2-16 BUN (test code = 4427095030) 11 mg/dL 7-23 GLUCOSE (test code = 3904754882) 95 mg/dL 70-110 CREATININE (test code = 2239295720) 0.71 mg/dL 0.50-1.04 TOTAL BILI (test code = 2268812442) 0.4 mg/dL 0.1-1.1 CALCIUM (test code = 8664249900) 9.1 mg/dL 8.6-10.6 T PROTEIN (test code = 4699440169) 7.9 g/dL 6.3-8.2 ALBUMIN (test code = 7438804279) 4.7 g/dL 3.5-5.0 ALK PHOS (test code = 3972011552) 114 U/L 34-122 ALTv (test code = 1742-6) 21 U/L 5-35 AST(SGOT) (test code = 6159092263) 21 U/L 13-40 eGFR (test code = 4428506712) mL/min/1.73m2 WESLEY (test code = WESLEY) Association [...] imaging tests). Lab Interpretation (test code = 71935-5) Abnormal [facility] WITH [id number] 19:25:37* Test Item Value Reference Range Interpretation Comme nts WBC (test code = 6690-2) See_Comment [[employer]] The system which generated this result transmitted reference range: 4.30 - 11.10 10*3/?L. The reference range was not used to interpret this result as normal/abnormal. RBC (test code = 789-8) See_Comment [[employer]] The system which generated this result [...] 32.9 g/dL 31.6-35.1 RDW-SD (test code = 30577-9) 41.7 fL 39.0-49.9 RDW-CV (test code = 788-0) 12.7 % 12.0-15.5 PLT (test code = 777-3) See_Comment H [[employer]] The system which generated this result transmitted reference range: 166 - 358 10*3/?L. The reference range was not used to interpret this result as normal/abnormal. MPV (test code = 44078-3) 8.8 fL 9.5-12.9 L NRBC/100 WBC (test code = 3046410553) See_Comment [[employer] ssage] The system which generated this result transmitted reference range: 0.0 - 10.0 /100 WBCs. The reference range was not used to interpret this result as normal/abnormal. NRBC x10^3 (test code = 1119210085) See_Comment [[employer]] The system which generated this result transmitted reference range: 10*3/?L. The reference range was not used to interpret this result as normal/abnormal. GRAN MAT (NEUT) % (test code = 770-8) 56.1 % IMM GRAN % (test code = 5054781027) 0.40 % LYMPH % (test code = 736-9) 29.9 % MONO % (test code = 5905-5) 5.4 % EOS % (test code = 713-8) 7.8 % BASO % (test code = 706-2) 0.4 % GRAN MAT x10^3(ANC) (test code = 6023779481) 3.75 10*3/uL 1.88-7.09 IMM GRAN x10^3 (test code = 9453029544) 0.03 10*3/uL 0.00-0.06 LYMPH x10^3 (test code = 731-0) 2.00 10*3/uL 1.32-3.29 MONO x10^3 (test code = 742-7) 0.36 10*3/uL 0.33-0.92 EOS x10^3 (test code = 711-2) 0.52 10*3/uL 0.03-0.39 H BASO x10^3 (test code = 704-7) 0.03 10*3/uL 0.01-0.07 Lab Interpretation (test code = 66777-1) [facility] [id number] 19:00:00* Test Item Value Reference Range Interpretation Comme nts POCT PREG (test code = 1605) negative On board controls acceptable with C Line (test code = 3574) present POCT PREG LOT # (test code = 3575) [id number] POCT PREG TEST DATE ( test code = 3576) 08-11-2023 Lab Interpretation (test cod e = 85500-3) Normal [facility] WITH [id number] 15:21:11* Test Item Value Reference Range Interpretation [...] 33.0 g/dL 31.6-35.1 RDW-SD (test code = 80652-7) 42.6 fL 39.0-49.9 RDW-CV (test code = 788-0) 12.9 % 12.0-15.5 PLT (test code = 777-3) See_Comment H [Automated [employer]] The system which generated this result transmitted reference range: 166 - 358 10*3/?L. The reference range was not used to interpret this result as normal/abnormal. MPV (test code = 84863-0) 9.1 fL 9.5-12.9 L NRBC/100 WBC (test code = 2538759057) See_Comment [[employer] ssage] The system which generated this result transmitted reference range: 0.0 - 10.0 /100 WBCs. The reference range was not used to interpret this result as normal/abnormal. NRBC x10^3 (test code = 4917676723) See_Comment [Automated [employer]] The system which generated this result transmitted reference range: 10*3/?L. The reference range was not used to interpret this result as normal/abnormal. GRAN MAT (NEUT) % (test code = 770-8) 56.8 % IMM GRAN % (test code = 8718364671) 0.30 % LYMPH % (test code = 736-9) 29.5 % MONO % (test code = 5905-5) 4.3 % EOS % (test code = 713-8) 8.3 % BASO % (test code = 706-2) 0.8 % GRAN MAT x10^3(ANC) (test code = 6816847374) 3.57 10*3/uL 1.88-7.09 IMM GRAN x10^3 (test code = 1214716273) 0.00-0.06 LYMPH x10^3 (test code = 731-0) 1.85 10*3/uL 1.32-3.29 MONO x10^3 (test code = 742-7) 0.27 10*3/uL 0.33-0.92 L EOS x10^3 (test code = 711-2) 0.52 10*3/uL 0.03-0.39 H BASO x10^3 (test code = 704-7) 0.05 10*3/uL 0.01-0.07 Lab Interpretation (test code = 99710-6) [facility]OLIC [facility] (13712)2022-04-26 15:12:13* Test Item Value Reference Range Interpretation Comme nts NA (test code = 4767040596) 141 mmol/L 135-145 K (test code = 0005710165) 3.4 mmol/L 3.5-5.0 L CL (test code = 8118394178) 104 mmol/L 98-108 CO2 TOTAL (test code = 3563162053) 23 mmol/L 23-31 AGAP (test code = 1940839735) 2-16 BUN (test code = 9646421009) 9 mg/dL 7-23 GLUCOSE (test code = 3295655086) 101 mg/dL 70-110 CREATININE (test code = 5603216128) 0.82 mg/dL 0.50-1.04 TOTAL BILI (test code = 1994690464) 0.7 mg/dL 0.1-1.1 CALCIUM (test code = 1685228481) 9.3 mg/dL 8.6-10.6 T PROTEIN (test code = 5941432825) 8.1 g/dL 6.3-8.2 ALBUMIN (test code = 9065036074) 4.7 g/dL 3.5-5.0 ALK PHOS (test code = 2070318803) 108 U/L 34-122 ALTv (test code = 1742-6) 24 U/L 5-35 AST(SGOT) (test code = 3403316711) 49 U/L 13-40 H eGFR (test code = 2835994315) mL/min/1.73m2 WESLEY (test code = WESLEY) Association [...] imaging tests). Lab Interpretation (test code = 25002-4) Abnormal [facility] [id number] 14:45:00* Test Item Value Reference Range Interpretation Comme [facility] POCT PREG (test code = 1605) negative On board controls acceptable with C Line (test code = 3574) present POCT PREG LOT # (test code = 3575) [id number] POCT PREG TEST DATE ( test code = 357) 08/11/2023 Lab Interpretation (test cod e = 36060-2) Normal [facility] [id number] 01:22:00* Test Item Value Reference Range Interpretation Comme [facility] POCT PREG (test code = 1605) Negative On board controls acceptable with C Line (test code = 3574) Present POCT PREG LOT # (test code = 3575) [id number] POCT PREG TEST DATE ( test code = 3576) 08-11-2023 Lab Interpretation (test cod e = 93266-0) Normal [facility] METABOLIC PANEL (NA, K, CL, CO2, GLUCOSE, BUN, CREATININE, CA)2022-04-07 23:01:10* Test Item Value Reference Range Interpretation Comme nts NA (test code = 9581683313) 138 mmol/L 135-145 K (test code = 1033525631) 4.3 mmol/L 3.5-5.0 CL (test code = 9446197529) 107 mmol/L 98-108 CO2 TOTAL (test code = 5221421086) 20 mmol/L 23-31 L AGAP (test code = 8179538269) 2-16 BUN (test code = 9535607177) 9 mg/dL 7-23 GLUCOSE (test code = 7257285925) 204 mg/dL 70-110 H CREATININE (test code = 9637884433) 0.74 mg/dL 0.50-1.04 CALCIUM (test code = 5942468365) 9.1 mg/dL 8.6-10.6 eGFR (test code = 7821919152) mL/min/1.73m2 WESLEY (test code = WESLEY) Association [...] imaging tests). Lab Interpretation (test code = 44813-5) Abnormal [facility] WITH [id number] 22:57:34* Test Item Value Reference Range Interpretation [...] 33.5 g/dL 31.6-35.1 RDW-SD (test code = 41305-3) 42.9 fL 39.0-49.9 RDW-CV (test code = 788-0) 13.4 % 12.0-15.5 PLT (test code = 777-3) See_Comment H [Automated [employer]] The system which generated this result transmitted reference range: 166 - 358 10*3/?L. The reference range was not used to interpret this result as normal/abnormal. MPV (test code = 83035-4) 8.9 fL 9.5-12.9 L NRBC/100 WBC (test code = 5397552344) See_Comment [[employer] ssage] The system which generated this result transmitted reference range: 0.0 - 10.0 /100 WBCs. The reference range was not used to interpret this result as normal/abnormal. NRBC x10^3 (test code = 7004400483) See_Comment [Automated [employer]] The system which generated this result transmitted reference range: 10*3/?L. The reference range was not used to interpret this result as normal/abnormal. GRAN MAT (NEUT) % (test code = 770-8) 88.7 % IMM GRAN % (test code = 4894980663) 0.70 % LYMPH % (test code = 736-9) 9.4 % MONO % (test code = 5905-5) 0.9 % EOS % (test code = 713-8) 0.1 % BASO % (test code = 706-2) 0.2 % GRAN MAT x10^3(ANC) (test code = 5269683551) 7.81 10*3/uL 1.88-7.09 H IMM GRAN x10^3 (test code = 1782124900) 0.06 10*3/uL 0.00-0.06 LYMPH x10^3 (test code = 731-0) 0.83 10*3/uL 1.32-3.29 L MONO x10^3 (test code = 742-7) 0.08 10*3/uL 0.33-0.92 L EOS x10^3 (test code = 711-2) 0.03-0.39 L BASO x10^3 (test code = 704-7) 0.01-0.07 Lab Interpretation (test code = 84963-3) Abnormal [facility] [id number] 14:07:00* Test Item Value Reference Range Interpretation Comme nts POCT PREG (test code = 1605) negative On board controls acceptable with C Line (test code = 3574) present POCT PREG LOT # (test code = 3575) [id number] POCT PREG TEST DATE ( test code = 3576) 08/11/2023 Lab Interpretation (test cod e = 76916-8) Normal [facility] [id number] 13:52:00* Test Item Value Reference Range Interpretation Comme nts POCT PREG (test code = 1605) negative On board controls acceptable with C Line (test code = 3574) present Lab Interpretation (test cod e = 72376-2) Normal [facility] [id number] 14:59:00* Test Item Value Reference Range Interpretation Comme nts POCT PREG (test code = 1605) negative On board controls acceptable with C Line (test code = 3574) yes POCT PREG LOT # (test code = 3575) [id number] POCT PREG TEST DATE ( test code = 3576) 07/11/2023 Lab Interpretation (test cod e = 60823-9) [facility] (19808)2022 17:51:43* Test Item Value Reference Range Interpretation Comme nts NA (test code = 5960975840) 139 mmol/L 135-145 K (test code = 3208835047) 4.1 mmol/L 3.5-5 CL (test code = 3996421379) 104 mmol/L 98-108 CO2 TOTAL (test code = 0417315539) 22 mmol/L 23-31 L AGAP (test code = 7308903131) 2-16 BUN (test code = 6276795501) 7 mg/dL 7-23 GLUCOSE (test code = 9221017692) 114 mg/dL 70-110 H CREATININE (test code = 2130213422) 0.69 mg/dL 0.5-1.04 TOTAL BILI (test code = 3219963861) 0.4 mg/dL 0.1-1.1 CALCIUM (test code = 6358659159) 9.7 mg/dL 8.6-10.6 T PROTEIN (test code = 4521455070) 7.2 g/dL 6.3-8.2 ALBUMIN (test code = 0107538088) 4.6 g/dL 3.5-5 ALK PHOS (test code = 3846849123) 65 U/L 34-122 ALTv (test code = 1742-6) 15 U/L 5-35 AST(SGOT) (test code = 8598299260) 19 U/L 13-40 eGFR (test code = 0855610329) mL/min/1.73m2 WESLEY (test code = WESLEY) Association [...] imaging tests). Lab Interpretation (test code = 32051-8) Abnormal [facility] WITH [id number] 17:40:24* Test Item Value Reference Range Interpretation Comme nts WBC (test code = 6690-2) See_Comment [[employer]] The system which generated this result transmitted reference range: 4.30 - 11.10 10*3/?L. The reference range was not used to interpret this result as normal/abnormal. RBC (test code = 789-8) See_Comment [[employer]] The system which generated this result transmitted [...] 33.3 g/dL 31.6-35.1 RDW-SD (test code = 98113-6) 43.1 fL 39-49.9 RDW-CV (test code = 788-0) 13.2 % 12-15.5 PLT (test code = 777-3) See_Comment [[employer]] The system which generated this result transmitted reference range: 166 - 358 10*3/?L. The reference range was not used to interpret this result as normal/abnormal. MPV (test code = 04603-4) 9.5 fL 9.5-12.9 NRBC/100 WBC (test code = 7988951520) See_Comment [[employer] ssage] The system which generated this result transmitted reference range: 0.0 - 10.0 /100 WBCs. The reference range was not used to interpret this result as normal/abnormal. NRBC x10^3 (test code = 6930195243) See_Comment [[employer]ated [employer]] The system which generated this result transmitted reference range: 10*3/?L. The reference range was not used to interpret this result as normal/abnormal. GRAN MAT (NEUT) % (test code = 770-8) 57.8 % IMM GRAN % (test code = 6515956827) 0.20 % LYMPH % (test code = 736-9) 30.8 % MONO % (test code = 5905-5) 5.1 % EOS % (test code = 713-8) 5.6 % BASO % (test code = 706-2) 0.5 % GRAN MAT x10^3(ANC) (test code = 9358347320) 3.61 10*3/uL 1.88-7.09 IMM GRAN x10^3 (test code = 0260693960) 0-0.06 LYMPH x10^3 (test code = 731-0) 1.92 10*3/uL 1.32-3.29 MONO x10^3 (test code = 742-7) 0.32 10*3/uL 0.33-0.92 L EOS x10^3 (test code = 711-2) 0.35 10*3/uL 0.03-0.39 BASO x10^3 (test code = 704-7) 0.03 10*3/uL 0.01-0.07 Lab Interpretation (test code = 88311-1) Abnormal [facility] [id number] 17:27:00* Test Item Value Reference Range Interpretation Comme nts POCT PREG (test code = 1605) negative On board controls acceptable with C Line (test code = 3574) present POCT PREG LOT # (test code = 3575) [id number] POCT PREG TEST DATE ( test code = 357) Lab Interpretation (test cod e = 58018-3) Normal [facility] 12:45:21* Test Item Value Reference Range Interpretation Comme nts LIPASE (test code = 8779250434) 41 U/L 0-220 Lab Interpretation (test cod e = 72621-6) Normal [facility] [id number] 10:57:00* Test Item Value Reference Range Interpretation Comme nts POCT PREG (test code = 1605) Negative On board controls acceptable with C Line (test code = 3574) Present POCT PREG LOT # (test code = 3575) [id number] POCT PREG TEST DATE ( test code = 3576) 03/12/2023 Lab Interpretation (test cod e = 67097-1) Normal [facility] (NA, K, CL, CO2, GLUCOSE, BUN, CREATININE, CA)2022-01-18 10:56:51* Test Item Value Reference Range Interpretation Comme nts NA (test code = 0440695556) 137 mmol/L 135-145 K (test code = 8989152654) 4.6 mmol/L 3.5-5 Slight hemolysis CL (test code = 9969163527) 108 mmol/L 98-108 CO2 TOTAL (test code = 5626285287) 22 mmol/L 23-31 L AGAP (test code = 8267860873) 2-16 BUN (test code = 9892414547) 11 mg/dL 7-23 Slight hemolysis GLUCOSE (test code = 4759653818) 83 mg/dL 70-110 CREATININE (test code = 7474609810) 0.68 mg/dL 0.5-1.04 CALCIUM (test code = 5904698628) 8.8 mg/dL 8.6-10.6 eGFR (test code = 5018529911) mL/min/1.73m2 WESLEY (test code = WESLEY) Association [...] imaging tests). Lab Interpretation (test code = 61946-1) Abnormal [facility] (07010[facility] (ALB,T.PRO,BILI T,BU/BC,ALT,AST,ALK PHOS)2022-01-18 10:56:51* Test Item Value Reference Range Interpretation Comme nts TOTAL BILI (test code = 9613855084) 0.6 mg/dL 0.1-1.1 BILI UNCON (test code = 1335873874) 0.1 mg/dL 0.1-1.1 BILI CONJ (test code = 5066171734) 0.0 mg/dL 0-0.3 T PROTEIN (test code = 1110954937) 8.6 g/dL 6.3-8.2 H ALBUMIN (test code = 7688201577) 5.1 g/dL 3.5-5 H ALK PHOS (test code = 8256142934) 79 U/L 34-122 ALTv (test code = 1742-6) 117 U/L 5-35 H AST(SGOT) (test code = 9197265064) 163 U/L 13-40 H Lab Interpretation (test cod e = 72119-5) Abnormal [facility], KTDGD4216-79-42 10:54:25* Test Item Value Reference Range Interpretation Comme nts PREG SERUM (test code = 4496336421) Negative WESLEY (test code = WESLEY) Less than 10 IU/L. ?If low titer or ectopic is suspected, resubmit specimen in 48-[address] WITH ZMVB3443-45-77 10:40:49* Test Item Value Reference Range Interpretation Comme nts WBC (test code = 6690-2) See_Comment [Automated [employer] ge] The system which generated this result transmitted reference range: 4.30 - 11.10 10*3/?L. The reference range was not used to interpret this result as normal/abnormal. RBC (test code = 789-8) See_Comment [Automated [employer]] The system which generated this result [...] 33.6 g/dL 31.6-35.1 RDW-SD (test code = 17238-8) 45.3 fL 39-49.9 RDW-CV (test code = 788-0) 14.5 % 12-15.5 PLT (test code = 777-3) See_Comment [Automated [employer]] The system which generated this result transmitted reference range: 166 - 358 10*3/?L. The reference range was not used to interpret this result as normal/abnormal. MPV (test code = 63566-7) 9.5 fL 9.5-12.9 NRBC/100 WBC (test code = 9384818815) See_Comment [Automated me ssage] The system which generated this result transmitted reference range: 0.0 - 10.0 /100 WBCs. The reference range was not used to interpret this result as normal/abnormal. NRBC x10^3 (test code = 6314627677) See_Comment [Automated messa ge] The system which generated this result transmitted reference range: 10*3/?L. The reference range was not used to interpret this result as normal/abnormal. GRAN MAT (NEUT) % (test code = 770-8) 47.6 % IMM GRAN % (test code = 1323346780) 0.60 % LYMPH % (test code = 736-9) 39.9 % MONO % (test code = 5905-5) 5.9 % EOS % (test code = 713-8) 5.3 % BASO % (test code = 706-2) 0.7 % GRAN MAT x10^3(ANC) (test code = 0480371247) 4.45 10*3/uL 1.88-7.09 IMM GRAN x10^3 (test code = 1476495441) 0.06 10*3/uL 0-0.06 LYMPH x10^3 (test code = 731-0) 3.74 10*3/uL 1.32-3.29 H MONO x10^3 (test code = 742-7) 0.55 10*3/uL 0.33-0.92 EOS x10^3 (test code = 711-2) 0.50 10*3/uL 0.03-0.39 H BASO x10^3 (test code = 704-7) 0.07 10*3/uL 0.01-0.07 Lab Interpretation (test code = 48183-7) Abnormal [facility] GJWN6647-77-67 18:31:00* Test Item Value Reference Range Interpretation Comme nts POCT PREG (test code = 1605) Negative On board controls acceptable with C Line (test code = 3574) Yes POCT PREG LOT # (test code = 3575) POCT PREG TEST DATE ( test code = 3576) [facility] W/O SPECIFIC YWHXBDF1508-22-03 18:31:00* Test Item Value Reference Range Interpretation [...] = 3257) Trace Negative - Negati ve [facility] Consult Notes Date/Time Note Provider Source 2023-01-12 00:12:43 Mq7GzYN6Y4dZH6kW1Ers M1XAlvQj2xf47uSwdu/e/i GQeNTvvTJNiygKVtYuwlev5542-86-45P27:12:43A ssociated Order(s): CONSULT GENERAL SURGERY TRAUMA/ACS Surgery [...] symptomatic cholelithiasis 1.5 months ago at OSH ([place]). Pt states that she has had persistent RUQ pain with nausea and po intolerance along with intermittent chills and vomiting since surgery. Was seen by PCP and instructed to come to [facility] ED for further evaluation. Review of Systems:(BOLDED [...] N/A 07/21/2019 Surgeon: Prasanna Vargas MD; Location: [facility] OR Location TUBAL LIGATION N/A 07/21/2019 Surgeon: Prasanna Vargas MD; Location: [facility] OR Location Family History:Family [...] skin once every month. 1 mL 3 Marrswmjnh-Gglheopjwcmmb-Komt (FIORICET) 50-300-40 mg per capsule Take 1 [...] symptomatic cholelithiasis 1.5 months ago at OSH ([place]).Plan:[facility] serviceConsult IR for percutaneous drainage [...] pain, nausea, anorexia since lap pasquale at [facility] on 12/01/22 with noted venous [...] Surgery, and Surgical Critical Care In-house Pager: [phone] [id number], Amy1.2.840.043521.1.13.104.2.7.2.342435Llp hezSkvHB5283-37-19I79:39:26Consult noteTXT1.2.840.341079.1.13.104.2.7.2.26283 9|[id number] for patient xksn17293-2Epxybur noteLNUTMBPRESBYTERIAN MEDICAL [facility] - [address] SpppDtrobtnobFytregcpfDIJV0146044518AKXLNI KBCFEDTUERKPWMIQ9443-53-53C74:39:261.2.840 .562628.1.72.3.15|1.2.840.168818.1.13.104. 2.7.2.727879_[id number] [facility] - Health History and Physical Notes Date/Time Note Provider Source 2023-01-12 01:05:04 eYIPvcyB+g+a9Heq9NYS 9HWu4ESNrx82IbbaAG2Wfp Kghm+MgwXgqrfC/kYSLN5/0774-34-27F31:05:04F ormatting of this note might be different from the original.01/12/23 1:05 AM Please refer to consult note written by Rodolfo Riggins DO on 01/12/23 for complete H&P.NITESH Gandara-2 Surgery Resident ssociated attestation - Mirella Vergara MD - 01/12/2023 1:47 AM CDT Hnhtk30125-8Hvpwnmc and physical ebtuGB6782104Jofbpp, Amy1.2.840.916642.1.13.104.2.7.2.171685Mri oqwQjiIG4456-28-14M14:47:52History and physical noteTXT1.2.840.022958.1.13.104.2.7.2.34405 9|2233258503HHOkeehsucb for patient ebzt11032-4Fixekdb and physical noteLNUTMB[address] FqoaVgnkirxvnIoilccoobZHQA8041161605FTEYKK ICTPFWJQXGZBCTJC1669-67-53G46:47:521.2.840 .571338.1.72.3.15|1.2.840.430074.1.13.104. 2.7.2.727879_[id number] [facility] Notes Date/Time Note Provider Source 2023-05-19 12:16:00 cGO3T40wxFnMFZX60d4M /VCC/ZAWghKBn UoI7I2lM0/MrWVOv9O21axfnsSnsF7E78 05-06-06T12:16:00 Pt given printed and verbal discharge [...] with steady gait, in no apparent distress. 76534-9Jamixvdmx department UbfdVO7094-52-24K28:20:15Emergen y department NoteTXT1.2.840.631789.1.13.104.2. 7.2.853047|7970548712PGCuugvsalx for patient yrpe08304-1QeonLXXUMGUENEVVytkkls ed C-CDA narrative textUT[address] RjzbTqxfudgtxGcbeooxaaOGDO5370893 741NMDMCYSJBOICIANARBHRBX8027-79- 07T12:20:151.2.840.861555.1.72.3. 15|1.2.840.504003.1.13.104.2.7.2. 727879_[id number] [facility] 2023-05-19 08:50:00 1QqOcTPDSXDg8qNbAIDc gSXIG8p01uSKZ 2UQO3Pkz62nhR0i60pjgArEtERd6/ui20 05-06-06T08:50:00 Patient came in with complaints of epigastric pain that radiates to her left shoulder associated with nausea and vomiting since a couple of weeks now. Patient states that she was worked up in [place] [facility] ER 2 weeks ago and found nothing wrong, just referred to a GI doctor but she hasn't seen one because she has no insurance. 35398-5Skxdmtopj department Triage pyclMJ1484-14-52O29:01:49Emergen y department Triage noteTXT1.2.840.522559.1.13.104.2. 7.2.651478|4910049345OHSxiaskpmn for patient tyyf01771-4Rnrkkavkl department NoteLNNARRATIVEFormatted C-CDA narrative adoc495649147Untxthke C Heredia RNUT[address] DgbhVgeoaigizDswwcrkbeRBLB8332001 788SWRJVBQLYOMDVOEESZDLAA5931-36- 07T09:01:491.2.840.720476.1.72.3. 15|1.2.840.303518.1.13.104.2.7.2. 727879_[id number] Syeda Ruiz RN [facility] 2023-01-16 10:56:45 9u7nZEzJZhdCwhtK4ugq bd6dGHZHczp2E MjM27Fjv8PlLgxOq86dy+ULerrF6Az065 02-02-06T10:56:45 TRANSITIONAL CARE MANAGEMENT ASSESSMENT01/16/2023 Nikko DysonTgtvkfw847661EUpvki Nelia Dyson is a 27 year old /White female was admitted on 01/11/[address] She was discharged on 01/15/23 with discharge disposition of HR- Routine Discharge.Admitting Physician: Misty Steele Diagnosis: Postprocedural intraabdominal abscess [T81.43XA]Pt. Verbalized understanding discharge instructions. Plans to f/u with pcp.Linked Episodes Type: Episode: Status: Noted: Resolved: Last update: Updated by: TRANSITION OF CARE tcm Active 01/16/2023 01/16/2023 10:56 AM Marlys Odell LVN Comments: TCM Dnd-drvb-tt-face outreach documentation:Discharge AssessmentChart Assessed: 01/16/23TCM Outreach Completed: [...] with the names or descriptions of any uthm-cao-noviczf or supplements you are currently taking?: YesSuppliesDid [...] or concerns at this time?: NoFuture Appointments: 28286-4Khheloxln encounter GxbeEO8763-13-39A40:57:41Telephon e encounter NoteTXT1.2.840.595627.1.13.104.2. 7.2.968935|9050908221DFXpeibijho for patient cizo19708-6LiraPS302449854Iwincer tte Rivas [address] CieiTtxxpioayIbkrpyugfSHXH0599165 334IUKPDHWLCNNKTUNNYCWISZ5768-83- 06T10:57:411.2.840.060972.1.72.3. 15|1.2.840.887460.1.13.104.2.7.2. 727879_[id number] Marlys Odell LVN [facility] 2023-01-15 18:18:34 oNqDoEvwxiv8gneWPgVr TvxjZAfxQkxGz vtiVEQkvQLPjmruUz/YuAGXCqK1DqHh93 02-02-05T18:18:34 Patient is cleared for discharge. Problem: [...] by Vero Crews RNOutcome: Progressing as expected 44947-2Nlbm of care dusiLE7148-59-34P25:18:58Plan of care noteTXT1.2.840.312242.1.13.104.2. 7.2.307979|2390703677VKUlcqkngub for patient fwat00787-7WunpMKSPYHZGHF[address]TXTX[address] 979INNCHBLRAJQEZJOISNQHOE2580-02- 05T18:18:581.2.840.652491.1.72.3. 15|1.2.840.050952.1.13.104.2.7.2. 727879_[id number] [facility] 2023-01-15 15:08:00 KUHdN6exRfU/N4tVIDk4 yb7B3rmAP8nLT pocJqXgkRvA3Lr46LLi1XJ09VWKOVIe43 02-02-055:08:00 Called outpatient pharmacy and spoke to Maggi. [facility] pharmacy will bring patient's medications to her room within 45min to an hour. 07605-4Qhdyp IxjfOR5737-33-29M21:49:16Nurse NoteTXT1.2.840.510059.1.13.104.2. 7.2.557022|7408522797LPZslfvgudd for patient kbvw61139-4Oseev TsrwFY297317842Mfqhkjb R Hanegan RN[address]TXTX[address] 755YXJJNVDOCUEGCEQXRQZWET1655-23- 05T15:49:161.2.840.475310.1.72.3. 15|1.2.840.838150.1.13.104.2.7.2. 727879_[id number] Vero Crews RN [facility] 2023-01-15 13:11:00 ZsfvgmpyM9m4G5TxTUOE xhJdqGLhAJlB2 TBzur/VpGC+Dp10VJo/dSJ9YUaAPdIq89 02-02-05T13:11:00 Problem: Infection RiskGoal: Absence of infectionOutcome: Progressing as expected Problem: PainGoal: Control of pain at or below patient's documented comfort goalOutcome: Progressing as expectedGoal: Reduction in pain sensationOutcome: Progressing as expected Problem: Discharge PlanningGoal: Adequate for dischargeOutcome: Progressing as expectedGoal: Effective communicationOutcome: Progressing as expected 44139-5Rlzr of care efsbDG0591-37-02B88:11:04Plan of care noteTXT1.2.840.489852.1.13.104.2. 7.2.993647|9745598017GWBwyeogjcy for patient edys53081-2ZdxwQGSBDKUTCM[address]TXTX[address] 300ZWDOOGRIUFFHYVAUHGTPVU5251-51- 05T13:11:041.2.840.013280.1.72.3. 15|1.2.840.040708.1.13.104.2.7.2. 727879_[id number] [facility] 2023-01-15 06:25:22 E7iq8nVy6NJXCkpazUHM SKNgpIbO1TY86 5JZcKz8ZlspPmdfZMwhjcHjxrvNJQKi08 02-02-0506:25:22 Problem: Infection RiskGoal: Absence of infectionOutcome: Progressing as expected Problem: PainGoal: Control of pain at or below patient's documented comfort goalOutcome: Progressing as expectedGoal: Reduction in pain sensationOutcome: Progressing as expected Problem: Discharge PlanningGoal: Adequate for dischargeOutcome: Progressing as expectedGoal: Effective communicationOutcome: Progressing as expected 20380-7Vbjp of care ykawBC7782-23-10C96:25:24Plan of care noteTXT1.2.840.461134.1.13.104.2. 7.2.806687|7458498353XOTxzscbrox for patient pudl00833-4OeyqJS386857829Qkjxz Munir Miguelangel [address] 565QHWRUMEFCTZHQQSDEDFEPF1167-52- 05T06:25:241.2.840.961023.1.72.3. 15|1.2.840.659074.1.13.104.2.7.2. 727879_[id number] Katy Means [facility] 2023-01-14 09:27:52 buXhs/vyb0Z9lQ/54kjR xOAu+6RGR98IS N4DG7MS7DFx9pa6CBkyp0l8PZRbCNoc36 03-02-0409:27:52 Problem: Infection RiskGoal: Absence of infectionOutcome: Progressing as expected Problem: PainGoal: Control of pain at or below patient's documented comfort goalOutcome: Progressing as expectedGoal: Reduction in pain sensationOutcome: Progressing as expected Problem: Discharge PlanningGoal: Adequate for dischargeOutcome: Progressing as expectedGoal: Effective communicationOutcome: Progressing as expected 68503-1Alvu of care dteoVQ2528-82-37T56:27:55Plan of care noteTXT1.2.840.944725.1.13.104.2. 7.2.542602|9645576209GXSlnljkzfj for patient couw58355-7TyxfVE575304922Kjiq W Martinez [address]TX[address] 741VFPFZKPOOTGJFCKSYRMCLV3787-76- 04T09:27:551.2.840.036225.1.72.3. 15|1.2.840.408400.1.13.104.2.7.2. 727879_[id number] Charles Win RN [facility] 2023-01-13 22:20:47 bURRXWUO9Am6ql5/ACpd LZKdW7lDxk1Pv K2TNWVU/Hy8TAJd25OaZiWmZZN7sBIu70 02-02-03T22:20:47 Notified MD by page due to double dose of Tylenol being given. Per MD Brito no more Tylenol to be given for tonight. 16599-8Priom UwqtKJ7400-31-98A46:25:15Nurse NoteTXT1.2.840.640055.1.13.104.2. 7.2.713675|9259444325NJQrbsiwowc for patient ylad38404-7VltdNAXQDQTZJU[address] QlcmEeytvuprhPvxkmzemzTMKR0037747 593KFKDOFFCFMKYJWRRBMTCWE5476-99- 03T22:25:151.2.840.392134.1.72.3. 15|1.2.840.093174.1.13.104.2.7.2. 727879_[id number] [facility] 2023-01-13 21:55:20 Cs4CHRbePS5BIsbiSyE/ G0HxBaILYZA68 1tK+Z29Ckm41kGd9rBExMMn6v2W6FkF50 02-02-03T21:55:20 Problem: Infection RiskGoal: Absence of infectionOutcome: Progressing as expected Problem: PainGoal: Control of pain at or below patient's documented comfort goalOutcome: Progressing as expectedGoal: Reduction in pain sensationOutcome: Progressing as expected Problem: Discharge PlanningGoal: Adequate for dischargeOutcome: Progressing as expectedGoal: Effective communicationOutcome: Progressing as expected 51159-4Ypau of care ntomDX0047-52-80S95:55:38Plan of care noteTXT1.2.840.888058.1.13.104.2. 7.2.568917|0431660391ZYWarkfksbh for patient [address] 684PBDIGAVMKIUIKVEBCQJAQG3973-56- 03T21:55:381.2.840.606986.1.72.3. 15|1.2.840.894463.1.13.104.2.7.2. 727879_[id number] [facility] 2023-01-13 08:20:43 GINOftsmandy/UbgkBYgQ2Z0 6RIxRDirrFU2k Z+srOfsRNvcShMmp3VknU/Ji3eoyC2464 02-02-03T08:20:43 Problem: Infection RiskGoal: Absence of infectionOutcome: Progressing as expected Problem: PainGoal: Control of pain at or below patient's documented comfort goalOutcome: Progressing as expectedGoal: Reduction in pain sensationOutcome: Progressing as expected Problem: Discharge PlanningGoal: Adequate for dischargeOutcome: Progressing as expectedGoal: Effective communicationOutcome: Progressing as expected 31261-7Yvyq of care closJO5763-69-57U19:20:46Plan of care noteTXT1.2.840.186572.1.13.104.2. 7.2.267419|6886882128VCFtpproqxg for patient [address] 414RWBUXHRSPZSTXERIOVOASD4802-83- 03T08:20:461.2.840.667677.1.72.3. 15|1.2.840.841854.1.13.104.2.7.2. 727879_[id number] [facility] 2023-01-12 20:10:08 OcTZKB6SS5xrh9VHihuN 5bxqtM/oLtLn3 D19v+8pklCfV6dEB+HgrlRHtg34vguC24 02-02-02T20:10:08 Problem: Infection RiskGoal: Absence of infectionOutcome: Progressing as expected Problem: PainGoal: Control of pain at or below patient's documented comfort goalOutcome: Progressing as expectedGoal: Reduction in pain sensationOutcome: Progressing as expected Problem: Discharge PlanningGoal: Adequate for dischargeOutcome: Progressing as expectedGoal: Effective communicationOutcome: Progressing as expected 14790-2Wmkh of care xaguLR6270-61-02B30:10:14Plan of care noteTXT1.2.840.616004.1.13.104.2. 7.2.555128|1606259475WMNzurwrgag for patient qmdy01446-3TzudDNELFXBKYW[address]vd[address] 164ADONRFHNIJJGDNJVLEUQJL0204-73- 02T20:10:141.2.840.796699.1.72.3. 15|1.2.840.689124.1.13.104.2.7.2. 727879_[id number] [facility] 2023-01-12 09:28:38 mQZS9l9NgPZs74MRXE+m JzGL0ByZPEcLz 7reANLP0JqB2c5MU3HuD0n8/L8we4tS06 02-02-02T09:28:38 Problem: Infection RiskGoal: Absence of infectionOutcome: Progressing as expected Problem: PainGoal: Control of pain at or below patient's documented comfort goalOutcome: Progressing as expectedGoal: Reduction in pain sensationOutcome: Progressing as expected Problem: Discharge PlanningGoal: Adequate for dischargeOutcome: Progressing as expectedGoal: Effective communicationOutcome: Progressing as expected 95661-5Yaeg of care xidrRH9141-61-89M55:28:40Plan of care noteTXT1.2.840.235273.1.13.104.2. 7.2.429275|3515410620GXJwtfielyu for patient vxqp84932-1IrfjIDHSHLTRGG[address]vd[address]on[place]TX[place] 402CSDMCUHPWYJIDVKLIKPXUV3371-16- 02T09:28:401.2.840.858737.1.72.3. 15|1.2.840.983803.1.13.104.2.7.2. 727879_[id number] [facility] 2023-01-12 05:17:00 ITDZqEkY4rXZHtEX+WxE egD9zz60is5ck j50TxXJFsOHkUxbT85Q2om+ipac6dGT35 02-02-02T05:17:00 Problem: Infection RiskGoal: Absence of infectionOutcome: Progressing as expected Problem: PainGoal: Control of pain at or below patient's documented comfort goalOutcome: Progressing as expectedGoal: Reduction in pain sensationOutcome: Progressing as expected Problem: Discharge PlanningGoal: Adequate for dischargeOutcome: Progressing as expectedGoal: Effective communicationOutcome: Progressing as expected 51969-5Wubb of care vqdwHU9916-74-82X60:17:08Plan of care noteTXT1.2.840.427647.1.13.104.2. 7.2.801936|8834996248EQDsdkybzkf for patient ofra98261-3SonkSWRNRXPXQA[address]TXTX[address] 455PWJCWHEPPFVQKMFNUMGAOQ0284-07- 02T05:17:081.2.840.947335.1.72.3. 15|1.2.840.846259.1.13.104.2.7.2. 727879_[id number] [facility] 2023-01-12 01:43:06 k+kE4zHx7/1+CqHTAYxb VRP0komkaFTAn due4qwFKrn9t7jWHxvC8SnPM0W8lQSW50 02-02-02T01:43:06 Report to lisy CURRIE on 9C. Pt awaiting transport 22375-9Objbwdodx department YpfvKU7765-47-15J07:43:18Emergen y department NoteTXT1.2.840.292370.1.13.104.2. 7.2.359393|2456182022TOLuqhygrtv for patient gwio40912-2UhppRN984074489Eapby Bakari CURRIE[address]TX[address] 459AAKKCJPWEYEAIWJCOKSKXZ1733-05- 02T01:43:181.2.840.114899.1.72.3. 15|1.2.840.513235.1.13.104.2.7.2. 727879_[id number] Melvin Villegas RN [facility] 2023-01-12 01:10:30 S2Cs47XZ6mPJu7PXFvgi u6yc8HmjjOiu2 r6imsHY/2iDipuySg0zfqkqVAMuxM2X33 02-02-02T01:10:30 Attempted report, nurse unavailable, left callback number [id number] PhttZJ9687-67-77W24:10:42[facility] department NoteTXT1.2.840.850954.1.13.104.2. 7.2.830065|2540623484JBRwkxwrbxf for patient ponx21409-7DuaeDYGCICVQXP[address]TXTX[address] 043EHQKIBOMKPNQVUJPTETYYS4844-99- 02T01:10:421.2.840.462520.1.72.3. 15|1.2.840.468309.1.13.104.2.7.2. 727879_[id number] [facility] 2023-01-12 00:24:49 Q5QZjpc9vNg462gNcSE+ zoya/LOsi4dV7Y n954vnt6GJ+Carrera+G0tldJx5ml5OiBDPI37 02-02-02T00:24:49 Surgery at bedside 89077-3Eopqlbwww[address] ZgawVO1147-38-63H73:24:56[facility] department NoteTXT1.2.840.246587.1.13.104.2. 7.2.681369|0158925251EMObybamdxv for patient loae91149-1SrlpVSQHCIPQGN[address]TXTX[address] 277PZSRSCHUPQFOPZEOXIFWMQ1678-49- 02T00:24:561.2.840.477251.1.72.3. 15|1.2.840.383112.1.13.104.2.7.2. 727879_[id number] [facility] 2023-01-11 23:08:11 6W5myHuACC5BmUUd8ZA8 d3vMyGeogk/r5 RBAGM1JCnl5pp0hu1pQLBF8L7jupzDn00 02-02-01T23:08:11 made aware of pt increased pain and nausea 85250-8Vfamocckh[address] TbdmOD7531-29-68V05:08:21[facility] department NoteTXT1.2.840.173645.1.13.104.2. 7.2.134597|3902284675ABUwhfholhg for patient olbt47296-3FnbeZMNLEPBEHV[address] [place], [place] [address] 086DCPLJVDJZAIWMSNVFIKLKE3590-38- 01T23:08:211.2.840.263783.1.72.3. 15|1.2.840.378277.1.13.104.2.7.2. 727879_[id number] [facility] 2023-01-11 22:34:38 KYpFsoscl5YZ5shBFrym 7Lv+c2Ekylp4T 8US7lm5i7pkNnJHFwgPTCMfEZ7yZSOG59 02-02-01T22:34:[address], warm blanket given 25141-6Hwphmxvdl department TqjfCX8677-89-00F44:34:49[facility] department NoteTXT1.2.840.042986.1.13.104.2. 7.2.309245|2467483289ZZZfxhavfcu for patient ksnc52775-8SbhgIEXXRNLXHP[address] [place], [place] [address] 082BYYWFQYZHKINKBIBCVPQZH3899-68- 01T22:34:491.2.840.281678.1.72.3. 15|1.2.840.058698.1.13.104.2.7.2. 727879_[id number] [facility] 2023-01-11 22:18:01 MxeCpjPGQoqhug1q7E8K 50UlfgwEEYA7t D8gqayp+auIoId2KinVsdokgg2XYYA172 02-02-01T22:18:[address] scan 59647-1Fbhfdwkmf department JyqzVN2872-85-10Q14:18:08[facility] department NoteTXT1.2.840.329016.1.13.104.2. 7.2.674311|[id number] for patient dgez27414-8KbigBAZEUDAOCC[address] FdhcNiwbhitygPvnhvbqxaSODC4771292 310FDHSKSHRCFDAMPOXXERODR3404-21- 01T22:18:081.2.840.159313.1.72.3. 15|1.2.840.140220.1.13.104.2.7.2. 727879_[id number] [facility] 2023-01-11 21:30:08 o5l2djB0iSqhWqdMo434 TP/bu30BwFxRk z0R4ZU0DHb+y/KDWXNcYuloyFquB24F81 02-02-01T21:30:08 Nikko Dyson is a 27 year [...] liver. Denies vomiting, denies blood in stool. 56877-9Kqsthazuv department WcsaVB0648-28-69H33:32:39[facility] department NoteTXT1.2.840.461469.1.13.104.2. 7.2.256182|[id number] for patient ugao04220-2DfowSCRYDDSNPB[id number] 607RNDLBYCHDYOCJJSCFHFSIM0202-45- 01T21:32:391.2.840.525101.1.72.3. 15|1.2.840.706403.1.13.104.2.7.2. 727879_[id number] [facility] 2023-01-11 21:03:38 2fC5HHA4B93Dvaq24uXZ d5/1LjUx4vALb +dn9qKQlQdxyaC9FIQ+K1C41Qia9nZC19 02-02-01T21:03:38 Nikko Dyson is a 27 year old female here today c/o abdominal pain x 2 days. Pt denies N/V but reports diarrhea. Pt reports "9/10" pain at this time. Pt reports pain travels down right side abdomen. Pt is A&Ox4, NAD Noted. RR even/unlabored. 57829-1Zwskgrkgj department Triage smysIM1476-65-13L69:05:23[facility] department Triage noteTXT1.2.840.244838.1.13.104.2. 7.2.077534|[id number] for patient uelz94796-1Prfpehppe[id number] 112DJXFSNXRAYJWUDDQIGGZLO0365-72- 01T21:05:231.2.840.309337.1.72.3. 15|1.2.840.837574.1.13.104.2.7.2. 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 Due to the worsening discomfort patient has, for further evaluation at [facility]. Patient states that during her cholecystectomy she [...] when she sits up. Patient has discontinued [place] and anxiety medication due to concern for her liver. She is only used a heating pad for her symptoms with minimal improvement.History provided by: PatientLanguage tip out worker used: No Past Medical History/Immunizations:Past Medical History: [...] N/A 07/21/2019 Surgeon: Prasanna Vargas MD; Location: [facility] OR Location TUBAL LIGATION N/A 07/21/2019 Surgeon: Prasanna Vargas MD; Location: [facility] OR Location Review of [...] 0 - 220 U/L COMP. METABOLIC PANEL (74648) TOTAL BETA HCG ASSAY EXTRA TUBE ORANGE EXTRA TUBE LAV EKG:If EKG completed, see Procedure Note. Orders and Treatments:Orders Placed This Encounter Procedures CT ABDOMEN PELVIS W CONTRAST POCT TEST URINALYSIS LIPASE COMP. METABOLIC PANEL (50628) TOTAL BHCG (QUANTITATIVE) Orders Placed This Encounter [...] mouth every 6 (six) hours as needed. VKQNMUPQPH-DVPVWJDUWSKZA-NNOT (FIORICET) 50-300-40 MG PER CAPSULE Take 1 [...] in the Gallbladder fossa, post-recent cholecystectomy in [place].General surgery was consulted and admitted the patient for further workup and management. 39120-8Jqulbatbq Emergency department TrbhHC5622643Oyjpwf, Jeremy1.2.840.474668.1.13.104.2.7 .2.383942NuwbkvWdchusVI9476-82-74 T07:17:19Physician Emergency department NoteTXT1.2.840.185182.1.13.104.2. 7.2.537243|[id number] for patient wvtd03799-8Vavgijbsq department NoteLNUT[address]YyrmAgqfecyopBblvisjqlKJMN2848064 863WCRQDPJDPCHDGNZVTRAJOK5395-86- 02T07:17:191.2.840.494844.1.72.3. 15|1.2.840.207971.1.13.104.2.7.2. [id number] [facility] [place] 2022-12-03 08:57:03 /lOh77///M2zC0Fg9T BYzttyKf9Mp+B vIoc9th52Rkhu+b/L96BnlGhV9Ukpg837 03-12-23T08:57:03 Patient has an appointment 12/12/22.Blayne Silva RN 12/03/2022 8:57 AM 94617-4Lxhqeiuqv encounter PprlLV2817-02-41A22:57:18Telephon e encounter NoteTXT1.2.840.318475.1.13.104.2. 7.2.381216|[id number] for patient [id number] Collins RN[address] R[id number] 605RCMGNRCDDTWCRTEUNNLDXA5268-45- 24T08:57:181.2.840.382831.1.72.3. 15|1.2.840.269353.1.13.104.2.7.2. [id number] Blayne Silva RN [facility]
[2023-08-11 10:02] VITALS: BP 141/98; TEMP 98.6; O2SAT 99
== END 2023-08-11 08:05 | disposition home or self-care (01) ==
LOC: ER 07:41
DX: K04.7 Periapical abscess without sinus (principal); Z88.1 Allergy status to other antibiotic agents; Z88.5 Allergy status to narcotic agent; Z88.6 Allergy status to analgesic agent; Z88.8 Allergy status to other drugs, medicaments and biological substances
CPT/HCPCS: 99283

== ENCOUNTER 2023-10-10 08:02 | Emergency (ER) | payer OTHER ==
--- OUTSIDE RECORDS SUMMARY | 2023-10-10 08:20 | XMS REPORT | Continuity of Care Document ---
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 No 30mg 30 mg, Slow IV Push, ONCE, 1 dose, On Sat09/05/22 at 1030, Routine [facility] NaCl 0.9% (NS) bolus infusion 1,000 mL 09-05 15:00: 00 09-05 17:12 :00 No 1000mL at 999 mL/hr, 1,000 mL, IV Infusion, ONCE, 1 dose, On Sat09/05/22 at 1000, STAT [facility] methylpredn isolone sod succ (SOLU-MEDRO L) injection 125 mg 09-05 14:45: 00 09-05 14:35 :00 No 125mg 125 mg, Intravenou s, ONCE, 1 dose, On Sat09/05/22 at 0945, 2 mL [facility] butalbital- acetaminoph en-caff (ESGIC) 50-325-40 mg tablet 1 tablet 09-05 14:00: 00 09-05 14:34 :00 No 1{tbl} 1 tablet, Oral, ONCE, 1 dose, On Sat09/05/22 at 0900, [place] [facility] diphenhydrA MINE (BENADRYL) injection 25 mg 09-05 14:00: 00 09-05 14:39 :00 No 25mg 25 mg, Slow IV Push, ONCE, 1 dose, On Sat09/05/22 at 0900, STAT [facility] proMETHazin e (PHENERGAN) 12.5 mg in NaCl 0.9% (NS) 50 mL IV piggyback 09-05 14:00: 00 09-05 14:40 :00 No 12.5mg 12.5 mg, IV Piggyback, ONCE, 1 dose, On Sat09/05/22 at 0900, [place] [facility] carvediloL 25 mg tablet 09-05 00:00: 00 Yes [id number] 25mg Take 1 tablet by mouth in the morning and 1 tablet in the evening. Take with meals. [facility] losartan 50 mg tablet 09-05 00:00: 00 Yes [id number] 50mg Take 1 tablet by mouth in the morning and 1 tablet in the evening. [facility] ibuprofen 800 mg tablet 08-05 00:00: 00 Yes 800mg Take 1 tablet by mouth 3 (three) times daily as needed. [facility] cyclobenzap rine 10 mg tablet 08-05 00:00: 00 Yes 10mg Take 1 tablet by mouth 3 (three) times daily as needed. [facility] maalox:diph enhydrAMINE :lidocaine 2 % viscous 1:1:1 ([facility]) oral suspension 15 mL 08-01 00:45: 00 08-01 00:44 :00 No 15mL 15 mL, Oral, ONCE, 1 dose, On Sat07/31/22 at 1945, [place] [facility] ketorolac (TORADOL) injection 15 mg 08-01 00:15: 00 08-01 00:44 :00 No 15mg 15 mg, Slow IV Push, ONCE, 1 dose, On Sat07/31/22 at 1914, Routine [facility] ondansetron (ZOFRAN (PF)) injection 4 mg 08-01 00:15: 00 08-01 00:46 :00 No 4mg 4 mg, Slow IV Push, ONCE, 1 dose, On Sat07/31/22 at 1914, [place] [facility] famotidine (PEPCID (PF)) injection 20 mg 08-01 00:15: 00 08-01 00:46 :00 No 20mg 20 mg, Slow IV Push, ONCE, 1 dose, On Sat07/31/22 at 1914, [place] [facility] ondansetron 4 mg disintegrat ing tablet 07-31 00:00: 00 05-19 00:00 :00 No [id number] 4mg Take 1 tablet by mouth every 8 (eight) hours as needed for Nausea and Vomiting (N/V). [facility] sucralfate 1 gram tablet 07-31 00:00: 00 05-19 00:00 :00 No [id number] 1g Take 1 tablet by mouth before meals and at bedtime. [facility] pantoprazol e 40 mg EC tablet 07-31 00:00: 00 08-15 04:59 :00 No [id number] 40mg Take 1 tablet by mouth in the morning for 14 days. [facility] tamsulosin 0.4 mg 24 hr capsule 07-25 00:00: 00 Yes .4mg Take 1 capsule by mouth in the morning. [facility] traMADoL 50 mg tablet 07-23 00:00: 00 Yes 50mg Take 1 tablet by mouth. [facility] ibuprofen 600 mg tablet 07-15 00:00: 00 07-31 00:00 :00 No [id number] 600mg Take 1 tablet by mouth every 6 (six) hours as needed for Pain (scale 4-6). [facility] citalopram 10 mg tablet 06-29 00:00: 00 Yes 10mg Take 1 tablet by mouth in the morning. [facility] QUEtiapine 400 mg tablet 06-29 00:00: 00 Yes [facility] gabapentin 600 mg tablet 06-29 00:00: 00 Yes [facility] methylPREDN ISolone (MEDROL, ANABELA,) 4 mg tablets 06-23 00:00: 00 Yes [id number] Take by mouth SEE-INSTRU CTIONS. follow package directions [facility] bromphenira mine-pseudo ephedrine-D M (BROMFED DM) 2-30-10 mg/5 mL syrup 06-23 00:00: 00 07-04 05:59 :00 No [id number] 5mL Take 5 mL by mouth 4 (four) times daily as needed for Cold symptoms for up to 10 days. [facility] methocarbam oL 750 mg tablet 06-23 00:00: 00 07-01 05:59 :00 No [id number] 750mg Take 1 tablet by mouth 4 (four) times daily for 7 days. [facility] magnesium sulfate in water 2 gram/50 mL (4 %) infusion 2 g 2021-05 21:00: 00 05-05 21:15 :00 No 2g 2 g, IV Piggyback, Administer over 15 Minutes, ONCE, 1 dose, On 05/05/22 at 1500, [place] [facility] butalbital- acetaminoph en-caff (ESGIC) 50-325-40 mg tablet 1 tablet 2021-05 20:15: 00 05-05 20:56 :00 No 1{tbl} 1 tablet, Oral, ONCE, 1 dose, On 05/05/22 at 1415, [place] [facility] dexamethaso ne sod phos PF injection 10 mg 2021-05 20:15: 00 05-05 21:00 :00 No 10mg 10 mg, Slow IV Push, ONCE, 1 dose, On 05/05/22 at 1415, 1 mL [facility] NaCl 0.9% (NS) bolus infusion 1,000 mL 2021-05 20:00: 00 05-05 21:45 :00 No 1000mL at 999 mL/hr, 1,000 mL, IV Infusion, ONCE, 1 dose, On 05/05/22 at 1400, [place] [facility] diphenhydrA MINE (BENADRYL) injection 25 mg 2021-05 19:15: 00 05-05 19:42 :00 No 25mg 25 mg, Slow IV Push, ONCE, 1 dose, On 05/05/22 at 1315, STAT [facility] ondansetron (ZOFRAN (PF)) injection 4 mg 2021-05 19:15: 00 05-05 19:45 :00 No 4mg 4 mg, Slow IV Push, ONCE, 1 dose, On 05/05/22 at 1315, [place] [facility] ketorolac (TORADOL) injection 30 mg 2021-05 19:15: 00 05-05 19:44 :00 No 30mg 30 mg, Slow IV Push, ONCE, 1 dose, On 05/05/22 at 1315, Routine [facility] butalbital- acetaminoph en-caff 50-325-40 mg tablet 2021-05 00:00: 00 Yes [id number] 1{tbl} Take 1 tablet by mouth every 4 (four) hours as needed for Pain (scale 7-10). [facility] HYDROcodone -acetaminop hen (NORCO) 10-325 mg tablet 1 tablet 2021-05 16:30: 00 04-26 15:23 :00 No 1{tbl} 1 tablet, Oral, ONCE, 1 dose, On [place] 04/26/22 at 1030, Routine [facility] diphenhydrA MINE (BENADRYL) tablet 25 mg 2021-05 15:45: 00 04-26 15:53 :00 No 25mg 25 mg, Oral, ONCE, 1 dose, On [place] 04/26/22 at 0945, [place] [facility] NaCl 0.9% (NS) bolus infusion 1,000 mL 2021-05 15:45: 00 04-26 15:55 :00 No 1000mL at 999 mL/hr, 1,000 mL, IV Piggyback, ONCE, 1 dose, On [place] 04/26/22 at 0945, STAT [facility] ondansetron (ZOFRAN (PF)) injection 4 mg 2021-05 14:45: 00 04-26 14:52 :00 No 4mg 4 mg, Slow IV Push, ONCE, 1 dose, On [place] 04/26/22 at 0845, Routine [facility] cephALEXin (KEFLEX) 500 mg capsule 2021-05 00:00: 00 05-04 05:59 :00 No [id number] 500mg Take 1 capsule by mouth in the morning and 1 capsule at noon and 1 capsule in the evening. Do all this for 7 days. [facility] ondansetron (ZOFRAN) 4 mg tablet 2021-05 00:00: 00 07-31 00:00 :00 No 4mg Take 1 tablet by mouth every 8 (eight) hours as needed for Nausea and Vomiting (N/V). [facility] galcanezuma b-gnlm prefilled (EMGALITY) subcutaneou s injection 2021-05 00:00: 00 Yes [id number] 120mg inject 120 mg under the skin once every month. [facility] methocarbam oL (ROBAXIN) injection 1,000 mg 2021-05 04:00: 00 Yes 1000mg 1,000 mg, Intravenou s, Q8H, First dose on 04/07/22 at 2200, Until Discontinu ed, Routine [facility] ketorolac (TORADOL) injection 30 mg 2021-05 00:45: 00 04-07 23:45 :00 No 30mg 30 mg, Slow IV Push, ONCE, 1 dose, On 04/07/22 at 1845, Routine [facility] HYDROcodone -acetaminop hen (NORCO) 10-325 mg tablet 1 tablet 2021-05 00:30: 00 04-07 23:45 :00 No 1{tbl} 1 tablet, Oral, ONCE NOW, 1 dose, On 04/07/22 at 1830, Routine [facility] diphenhydrA MINE (BENADRYL) injection 12.5 mg 2021-05 23:45: 00 04-07 23:46 :00 No 12.5mg 12.5 mg, Slow IV Push, ONCE, 1 dose, On 04/07/22 at 1745, [place] [facility] butorphanol (STADOL) injection 1 mg 2021-05 23:15: 00 04-07 22:48 :00 No 1mg 1 mg, IV Push, ONCE, 1 dose, On 04/07/22 at 1715, Routine [facility] NaCl 0.9% (NS) bolus infusion 1,000 mL 2021-05 23:15: 00 04-07 23:49 :00 No 1000mL at 999 mL/hr, 1,000 mL, IV Infusion, ONCE, 1 dose, On 04/07/22 at 1715, [place] [facility] ketorolac (TORADOL) injection 15 mg 2021-05 19:30: 00 03-24 18:45 :00 No 15mg 15 mg, Slow IV Push, ONCE, 1 dose, On 03/24/22 at 1330, Routine [facility] butorphanol (STADOL) injection 1 mg 2021-05 18:00: 00 03-24 17:26 :00 No 1mg 1 mg, Intravenou s, ONCE, 1 dose, On 03/24/22 at 1200, Routine [facility] proMETHazin e (PHENERGAN) 25 mg in NaCl 0.9% (NS) 50 mL IV piggyback 2021-05 18:00: 00 03-24 18:13 :00 No 25mg 25 mg, IV Piggyback, ONCE, 1 dose, On 03/24/22 at 1200, [place] [facility] butorphanol (STADOL) injection 1 mg 2021-05 17:15: 00 03-24 16:26 :00 No 1mg 1 mg, IV Push, ONCE, 1 dose, On 03/24/22 at 1115, Routine [facility] diphenhydrA MINE (BENADRYL) injection 25 mg 2021-05 15:30: 00 03-24 15:40 :00 No 25mg 25 mg, Slow IV Push, ONCE, 1 dose, On 03/24/22 at 0930, STAT [facility] ondansetron (ZOFRAN (PF)) injection 4 mg 2021-05 15:30: 00 03-24 14:25 :00 No 4mg 4 mg, Slow IV Push, ONCE, 1 dose, On 03/24/22 at 0930, [place] [facility] NaCl 0.9% (NS) IV infusion 1,000 mL 2021-05 15:15: 00 03-24 17:25 :00 No 1000mL at 999 mL/hr, Intravenou s, ONCE, 1 dose, On 03/24/22 at 0915, [facility] magnesium sulfate in water 2 gram/50 mL (4 %) infusion 2 g 2021-05 15:00: 00 03-24 14:47 :00 No 2g 2 g, IV Piggyback, Administer over 20 Minutes, ONCE, 1 dose, On 03/24/22 at 0900, Routine [facility] dexamethaso ne sod phos PF injection 6 mg 2021-05 14:15: 00 03-24 14:14 :00 No 6mg 6 mg, Slow IV Push, ONCE, 1 dose, On 03/24/22 at 0815, 1 mL [facility] diphenhydrA MINE (BENADRYL) injection 25 mg 2021-05 14:15: 00 03-24 14:16 :00 No 25mg 25 mg, Slow IV Push, ONCE, 1 dose, On 03/24/22 at 0815, STAT [facility] ALBUTEROL INHALE 2021-05 07:58: 13 03-24 00:00 :00 No [facility] rizatriptan 10 mg tablet 2021-05 00:00: 00 Yes [id number] 10mg Take 1 tablet by mouth as needed for Migraine. May repeat in 2 hours if needed [facility] Butalbital- Acetaminoph en-Caff (FIORICET) 50-300-40 mg per capsule 2021-05 00:00: 00 Yes [id number] 1{capsu le} Take 1 capsule by mouth every 6 (six) hours as needed for Other (headache) . [facility] magnesium oxide 200 mg magnesium Tab 2021-05 00:00: 00 04-07 00:00 :00 No [id number] 200mg Take 200 mg by mouth 2 (two) times daily. Indication s: headache [facility] SUMAtriptan 50 mg tablet 2021-05 00:00: 00 Yes 50mg Take 1 tablet by mouth as needed for Migraine. Take one tablet at onset of migraine, may take another tablet 2 hours after initial dose if no relief with first dose. DO NOT EXCEED 100mg in a 24 hour period. [facility] FENTanyl PF (SUBLIMAZE (PF)) injection 50 mcg 2021-05 15:30: 00 03-15 14:56 :00 No 50ug 50 mcg, Slow IV Push, ONCE, 1 dose, On [place] 03/15/22 at 1030, Routine [facility] proMETHazin e (PHENERGAN) tablet 25 mg 2021-05 14:45: 00 03-15 14:55 :00 No 25mg 25 mg, Oral, ONCE, 1 dose, On [place] 03/15/22 at 0945, [place] [facility] FENTanyl PF (SUBLIMAZE (PF)) injection 50 mcg 2021-05 14:45: 00 03-15 13:58 :00 No 50ug 50 mcg, Slow IV Push, ONCE, 1 dose, On [facility] 03/15/22 at 0945, Routine [facility] ondansetron (ZOFRAN (PF)) injection 4 mg 2021-05 14:00: 00 03-15 13:58 :00 No 4mg 4 mg, Slow IV Push, ONCE, 1 dose, On [facility] 03/15/22 at 0900, [place] [facility] carvediloL 25 mg tablet 2021-05 00:00: 00 09-05 00:00 :00 No [id number] 25mg Take 1 tablet by mouth in the morning and 1 tablet in the evening. Take with meals. [facility] ondansetron 4 mg disintegrat ing tablet 2021-05 00:00: 00 04-07 00:00 :00 No [id number] 4mg Take 1 tablet by mouth every 8 (eight) hours as needed for Nausea and Vomiting (N/V). [facility] ketorolac 10 mg tablet 2021-05 00:00: 00 04-07 00:00 :00 No [id number] 10mg Take 1 tablet by mouth every 6 (six) hours as needed for Pain (scale 7-10). [facility] proMETHazin e 25 mg tablet 2021-05 00:00: 00 04-07 00:00 :00 No [id number] 25mg Take 1 tablet by mouth every 6 (six) hours as needed for N/V unresponsi ve to Ondansetro n. [facility] cephALEXin 500 mg capsule 2021-05 00:00: 00 03-19 05:59 :00 No [id number] 500mg Take 1 capsule by mouth 4 (four) times daily for 3 days. [facility] predniSONE 20 mg tablet 2021-05 0-31 00:00: 00 03-15 04:59 :00 No [id number] 20mg Take 1 tablet by mouth in the morning for 2 days. [facility] methocarbam oL (ROBAXIN) tablet 500 mg 2021-05 16:45: 00 03-11 17:08 :00 No 500mg 500 mg, Oral, ONCE, 1 dose, On 03/11/22 at 1200, [place] [facility] dexamethaso ne sod phos PF injection 10 mg 2021-05 16:00: 00 03-11 16:00 :00 No 10mg 10 mg, Slow IV Push, ONCE, 1 dose, On 03/11/22 at 1100, 1 mL [facility] diphenhydrA MINE (BENADRYL) injection 25 mg 2021-05 15:46: 00 03-11 16:00 :00 No 25mg 25 mg, Slow IV Push, ONCE, 1 dose, On Sat03/11/22 at 1100, STAT [facility] NaCl 0.9% (NS) IV infusion 1,000 mL 2021-05 15:45: 00 03-11 16:04 :00 No 1000mL at 999 mL/hr, Intravenou s, ONCE, 1 dose, On Sat03/11/22 at 1045, Routine [facility] butalbital- acetaminoph en-caff (ESGIC) 50-325-40 mg tablet 1 tablet 2021-05 15:00: 00 03-11 15:05 :00 No 1{tbl} 1 tablet, Oral, ONCE, 1 dose, On 03/11/22 at 1015, [place] [facility] ketorolac (TORADOL) injection 15 mg 2021-05 14:45: 00 03-11 15:05 :00 No 15mg 15 mg, Slow IV Push, ONCE, 1 dose, On 03/11/22 at 0945, [place] [facility] proMETHazin e (PHENERGAN) 12.5 mg in NaCl 0.9% (NS) 50 mL IV piggyback 2021-05 14:45: 00 03-11 15:04 :00 No 12.5mg 12.5 mg, IV Piggyback, ONCE, 1 dose, On 03/11/22 at 0945, [place] [facility] proMETHazin e 25 mg tablet 2021-05 00:00: 00 07-31 00:00 :00 No [id number] 25mg Take 1 tablet by mouth every 6 (six) hours as needed for Nausea and Vomiting (N/V). [facility] methocarbam oL 500 mg tablet 2021-05 00:00: 00 04-07 00:00 :00 No [id number] 500mg Take 1 tablet by mouth 3 (three) times daily as needed for Pain (scale 7-10). [facility] topiramate 25 mg tablet 2021-05 00:00: 00 Yes [id number] 100mg Take 4 tablets by mouth in the morning. [facility] diphenhydrA MINE 25 mg capsule 2021-05 09:39: 59 02-27 00:00 :00 No 25mg Take 25 mg by mouth every 6 (six) hours as needed for Allergies. [facility] citalopram hydrobromid e (CITALOPRAM ORAL) 2021-05 09:39: 49 02-27 00:00 :00 No Take by mouth. [facility] carbamazepi ne (TEGRETOL ORAL) 2021-05 09:39: 28 02-27 00:00 :00 No Take by mouth. [facility] albuterol 90 mcg/actuati on inhaler 2021-05 00:00: 00 Yes [id number] 2{puff} Inhale 2 Puffs every 6 (six) hours as needed for Wheezing or Shortness of Breath. [facility] SUMAtriptan 50 mg tablet 2021-05 00:00: 00 03-21 00:00 :00 No 50mg Take 50 mg by mouth as needed for Migraine. Take one tablet at onset of migraine, may take another tablet 2 hours after initial dose if no relief with first dose. DO NOT EXCEED 100mg in a 24 hour period. [facility] benzonatate 200 mg capsule 2021-05 0-18 00:00: 00 03-07 04:59 :00 No [id number] 200mg Take 1 capsule by mouth 3 (three) times daily as needed for Cough for up to 7 days. [facility] butalbital- acetaminoph en-caff (ESGIC) 50-325-40 mg tablet 1 tablet 2021-05 08:15: 00 02-21 08:09 :00 No 1{tbl} 1 tablet, Oral, ONCE, 1 dose, On Sat02/21/22 at 0315, [facility] butorphanol (STADOL) injection 1 mg 2021-05 08:15: 00 02-21 07:28 :00 No 1mg 1 mg, IV Push, ONCE, 1 dose, On Sat02/21/22 at 0315, Routine [facility] NaCl 0.9% (NS) bolus infusion 1,000 mL 2021-05 07:15: 00 02-21 08:40 :00 No 1000mL at 999 mL/hr, 1,000 mL, IV Infusion, ONCE, 1 dose, On Sat02/21/22 at 0215, [facility] proMETHazin e (PHENERGAN) 12.5 mg in NaCl 0.9% (NS) 50 mL IV piggyback 2021-05 06:30: 00 02-21 06:38 :00 No 12.5mg 12.5 mg, IV Piggyback, ONCE, 1 dose, On Sat02/21/22 at 0130, [place] [facility] dexamethaso ne sod phos PF injection 10 mg 2021-05 06:30: 00 02-21 06:38 :00 No 10mg 10 mg, Slow IV Push, ONCE, 1 dose, On Sat02/21/22 at 0130, 1 mL [facility] ketorolac (TORADOL) injection 15 mg 2021-05 06:30: 00 02-21 06:38 :00 No 15mg 15 mg, Slow IV Push, ONCE, 1 dose, On Sat02/21/22 at 0130, [place] [facility] diphenhydrA MINE (BENADRYL) injection 25 mg 2021-05 06:30: 00 02-21 06:38 :00 No 25mg 25 mg, Slow IV Push, ONCE, 1 dose, On Sat02/21/22 at 0130, STAT [facility] FENTanyl PF (SUBLIMAZE (PF)) injection 50 mcg 2021-05 20:30: 00 02-18 19:44 :00 No 50ug 50 mcg, Slow IV Push, ONCE, 1 dose, On Sat02/18/22 at 1530, Routine [facility] ketorolac (TORADOL) injection 30 mg 2021-05 20:15: 00 02-18 20:09 :00 No 30mg 30 mg, Slow IV Push, ONCE, 1 dose, [facility]UE 370-500 mL[facility] injection 60 mL 2021-05 19:30: 00 02-18 17:30 :00 No [id number] 60mL 60 mL, Intravenou s, ONCE, 1 dose, On Sat02/18/22 at 1430, Routine [facility] proMETHazin e (PHENERGAN) 12.5 mg in NaCl 0.9% (NS) 50 mL IV piggyback 2021-05 18:15: 00 02-18 18:19 :00 No 12.5mg 12.5 mg, IV Piggyback, ONCE, 1 dose, [facility]02/18/22 [facility] 13[facility] FENT[facility] (SUBLIMAZE (PF)) injection 50 mcg 2021-05 18:00: 00 02-18 17:26 :00 No 50ug 50 mcg, Slow IV Push, ONCE, 1 dose, On Sat02/18/22 at 1300, Routine [facility] ondansetron (ZOFRAN (PF)) injection 4 mg 2021-05 17:15: 00 02-18 17:27 :00 No 4mg 4 mg, Slow IV Push, ONCE, 1 dose, On [place] 02/18/22 at 1215, [facility] morpHINE (2 mg/mL) injection 4 mg 01-18 15:15: 00 01-18 14:49 :00 No 4mg 4 mg, Slow IV Push, ONCE, 1 dose, On [place] 01/18/22 at 1015, [facility] ondansetron (ZOFRAN (PF)) injection 4 mg 01-18 13:30: 00 01-18 13:33 :00 No 4mg 4 mg, Slow IV Push, ONCE, 1 dose, On [place] 01/18/22 at 0830, [facility] morpHINE (4 mg/mL) injection 4 mg 01-18 13:30: 00 01-18 13:34 :00 No 4mg 4 mg, Slow IV Push, ONCE, 1 dose, On [place] 01/18/22 at 0830, [facility] morpHINE (4 mg/mL) injection 4 mg 01-18 12:30: 00 01-18 11:39 :00 No 4mg 4 mg, Slow IV Push, ONCE, 1 dose, On [place] 01/18/22 at 0730, [facility] famotidine (PEPCID (PF)) injection 20 mg 01-18 11:30: 00 01-18 10:52 :00 No 20mg 20 mg, Slow IV Push, ONCE, 1 dose, On [place] 01/18/22 at 0630, [facility] ondansetron (ZOFRAN (PF)) injection 4 mg 01-18 11:30: 00 01-18 10:52 :00 No 4mg 4 mg, Slow IV Push, ONCE, 1 dose, On Kathie 01/18/22 at 0630, [facility] iodixanoL (VISIPAQUE 270-150 mL) injection 80 mL 01-18 11:21: 00 01-18 11:15 :00 No [id number] 80mL 80 mL, Intravenou s, ONCE, 1 dose, On Kathie 01/18/22 at 0630, Routine [facility] NaCl 0.9% (NS) bolus infusion 1,000 mL 01-18 11:15: 00 01-18 12:59 :00 No 1000mL at 999 mL/hr, 1,000 mL, IV Infusion, ONCE, 1 dose, On Kathie 01/18/22 at 0615, [facility] morpHINE (4 mg/mL) injection 4 mg 01-18 10:45: 00 01-18 10:52 :00 No 4mg 4 mg, Slow IV Push, ONCE, 1 dose, On Kathie 01/18/22 at 0545, STAT [facility] traMADoL 50 mg tablet 01-18 00:00: 00 02-27 00:00 :00 No [id number] 50mg Take 1 tablet by mouth every 6 (six) hours as needed for Pain (scale 7-10). Indication s: acute pain [facility] ondansetron 4 mg disintegrat ing tablet 01-18 00:00: 00 02-27 00:00 :00 No [id number] 4mg Take 1 tablet by mouth every 8 (eight) hours as needed for Nausea and Vomiting (N/V). [facility] ibuprofen 600 mg tablet 01-18 00:00: 00 02-27 00:00 :00 No [id number] 600mg Take 1 tablet by mouth every 6 (six) hours as needed for Pain (scale 4-6). [facility] predniSONE 20 mg tablet 01-16 00:00: 00 01-24 04:59 :00 No [id number] 40mg Take 2 tablets by mouth in the morning for 7 days. [facility] morpHINE (4 mg/mL) injection 4 mg 01-15 16:15: 00 01-15 15:28 :00 No 4mg 4 mg, Slow IV Push, ONCE, 1 dose, On Sat01/15/22 at 1115, [facility] proMETHazin e (PHENERGAN) 12.5 mg in NaCl 0.9% (NS) 50 mL IV piggyback 01-15 15:30: 00 01-15 15:28 :00 No 12.5mg 12.5 mg, IV Piggyback, ONCE, 1 dose, On Sat01/15/22 at 1030, [facility] NaCl 0.9% (NS) bolus infusion 1,000 mL 01-15 15:00: 00 01-15 15:38 :00 No 1000mL at 999 mL/hr, 1,000 mL, IV Infusion, ONCE, 1 dose, On Sat01/15/22 at 1000, [facility] morpHINE (4 mg/mL) injection 4 mg 01-15 15:00: 00 01-15 14:37 :00 No 4mg 4 mg, Slow IV Push, ONCE, 1 dose, On Sat01/15/22 at 1000, [facility] ondansetron (ZOFRAN (PF)) injection 8 mg 01-15 14:15: 00 01-15 14:37 :00 No 8mg 8 mg, Slow IV Push, ONCE, 1 dose, On Sat01/15/22 at 0915, [facility] dexamethaso ne sod phos PF injection 10 mg 01-15 14:15: 00 01-15 14:37 :00 No 10mg 10 mg, Slow IV Push, ONCE, 1 dose, On Sat01/15/22 at 0915, 1 mL [facility] proMETHazin e 25 mg tablet 01-15 00:00: 00 02-27 00:00 :00 No [id number] 25mg Take 1 tablet by mouth every 6 (six) hours as needed for Nausea and Vomiting (N/V). [facility] ondansetron (ZOFRAN-ODT ) disintegrat ing tablet 4 mg 830 01:45: 00 01-09 00:56 :00 No 4mg 4 mg, Oral, ONCE, 1 dose, On Sat01/08/22 at 2045, Routine [facility] HYDROcodone -acetaminop hen (NORCO 5) 5-325 mg tablet 1 tablet 01-09 00:45: 00 01-09 00:37 :00 No 1{tbl} 1 tablet, Oral, ONCE, 1 dose, On Sat01/08/22 at 1945, [facility] diphenhydrA MINE (BENADRYL) injection 25 mg 01-08 23:45: 00 01-08 23:51 :00 No 25mg 25 mg, Slow IV Push, ONCE, 1 dose, On Sat01/08/22 at 1845, STAT [facility] dexamethaso ne sod phos PF injection 10 mg 01-08 23:45: 00 01-08 23:50 :00 No 10mg 10 mg, Slow IV Push, ONCE, 1 dose, On Sat01/08/22 at 1845, 1 mL [facility] ketorolac (TORADOL) injection 30 mg 01-08 23:45: 00 01-08 23:51 :00 No 30mg 30 mg, Slow IV Push, ONCE, 1 dose, On Sat01/08/22 at 1845, [facility] acetaminoph en (TYLENOL ARTHRITIS PAIN) 650 mg CR tablet 01-08 00:00: 00 04-07 00:00 :00 No [id number] 650mg Take 1 tablet by mouth every 8 (eight) hours as needed for Pain. [facility] ondansetron 4 mg disintegrat ing tablet 01-08 00:00: 00 02-27 00:00 :00 No [id number] 4mg Take 1 tablet by mouth every 8 (eight) hours as needed for Nausea and Vomiting (N/V). [facility] ketorolac 10 mg tablet 01-08 00:00: 00 02-27 00:00 :00 No [id number] 10mg Take 1 tablet by mouth every 6 (six) hours as needed for Pain (scale 4-6) or Pain (scale 7-10). [facility] metaxalone (SKELAXIN) 800 mg tablet 01-08 00:00: 00 02-27 00:00 :00 No [id number] 800mg Take 1 tablet by mouth in the morning and 1 tablet at noon and 1 tablet in the evening. [facility] metroNIDAZO LE 500 mg tablet 12-18 00:00: 00 02-27 00:00 :00 No 500mg Take 1 tablet by mouth every 12 (twelve) hours. [facility] trazodone/d ietary supp. no.8 (TRAZAMINE ORAL) 12-12 15:08: 46 12-12 00:00 :00 No Take by mouth. [facility] diphenhydrA MINE 25 mg capsule 12-12 13:03: 04 Yes 25mg Take 25 mg by mouth every 6 (six) hours as needed for Allergies. [facility] carbamazepi ne (TEGRETOL ORAL) 12-12 13:03: 04 Yes Take by mouth. [facility] traZODone 50 mg tablet 12-12 00:00: 00 02-27 00:00 :00 No [id number] 50mg Take 1 tablet by mouth at bedtime. [facility] SERTraline (ZOLOFT) 50 mg tablet 12-12 00:00: 00 02-27 00:00 :00 No [id number] 50mg Take 1 tablet by mouth in the morning. [facility] sulfamethox azole-trime thoprim (BACTRIM DS) 800-160 mg per tablet 12-12 00:00: 00 12-16 04:59 :00 No [id number] 1{tbl} Take 1 tablet by mouth in the morning and 1 tablet in the evening. Do all this for 3 days. [facility] ibuprofen 600 mg tablet 11-24 00:00: 02-27 00:00 :00 No [id number] 600mg Take 1 tablet by mouth every 6 (six) hours as needed for Pain (scale 4-6). [facility] acetaminoph en-codeine 300-30 mg tablet 11-24 00:00: 00 12-12 00:00 :00 No [id number] 1{tbl} Take 1 tablet by mouth every 4 (four) hours as needed for Pain (scale 4-6). Indication s: acute pain [facility] bromphenira mine-pseudo ephedrine-D M (BROMFED DM) 2-30-10 mg/5 mL syrup 11-18 00:00: 00 03-24 00:00 :00 No [id number] 5mL Take 5 mL by mouth 4 (four) times daily as needed for Congestion /Allergies or Cough. [facility] naproxen 500 mg tablet 11-18 00:00: 00 02-27 00:00 :00 No [id number] 500mg Take 1 tablet by mouth every 8 (eight) hours as needed for Pain (scale 4-6). [facility] cyclobenzap rine 10 mg tablet 11-18 00:00: 00 02-27 00:00 :00 No [id number] 10mg Take 1 tablet by mouth at bedtime as needed for Muscle Spasms. [facility] ibuprofen 100 mg/5 mL oral suspension 10-25 00:00: 00 02-27 00:00 :00 No [id number] 605mg Take 30.25 mL by mouth every 6 (six) hours as needed for Pain (scale 4-6) or Temp > 38.5 C. [facility] acetaminoph en 160 mg/5 mL liquid 10-25 00:00: 00 12-12 00:00 :00 No [id number] 608mg Take 19 mL by mouth every 6 (six) hours as needed for Fever. [facility] DULoxetine 60 mg capsule 10-06 00:00: 02-27 00:00 :00 No [facility] traZODone 50 mg tablet 27 00:00: 00 12-12 00:00 :00 No [facility] mometasone 50 mcg/actuati on nasal spray 09-28 00:00: 00 02-27 00:00 :00 No [id number] 1{spray } Use 1 [place] in each nostril 2 (two) times daily. [facility] cetirizine (ZYRTEC) 10 mg tablet 16 00:00: 00 02-27 00:00 :00 No [id number] 10mg Take 1 tablet by mouth daily. [facility] DULoxetine 30 mg capsule 09-18 00:00: 00 02-27 00:00 :00 No [facility] gabapentin 300 mg capsule 09-18 00:00: 00 02-27 00:00 :00 No [facility] ondansetron 4 mg tablet 09-18 00:00: 00 02-27 00:00 :00 No [facility] amLODIPine 5 mg tablet 09-01 00:00: 00 02-27 00:00 :00 No 5mg Take 5 mg by mouth. [facility] buPROPion XL 150 mg 24 hr tablet -20 00:00: 00 02-27 00:00 :00 No 150mg Take 150 mg by mouth. [facility] proMETHazin e 25 mg tablet 4-05 00:00: 00 09-12 00:00 :00 No [id number] 25mg Take 1 tablet by mouth every 6 (six) hours as needed for Nausea and Vomiting (N/V). [facility] traMADoL 50 mg tablet 4-05 00:00: 00 09-12 00:00 :00 No [id number] 50mg Take 1 tablet by mouth every 6 (six) hours as needed (pain). Indication s: acute pain [facility] cyclobenzap rine 10 mg tablet 08-07 00:00: 00 08-22 04:59 :00 No [id number] 10mg Take 1 tablet by mouth 3 (three) times daily for 14 days. [facility] ibuprofen 800 mg tablet 08-07 00:00: 00 08-22 04:59 :00 No [id number] 800mg Take 1 tablet by mouth every 6 (six) hours as needed for Pain (scale 1-3) for up to 14 days. [facility] diclofenac 75 mg EC tablet 08-01 00:00: 00 09-12 00:00 :00 No [facility] orphenadrin e 100 mg SR tablet 08-01 00:00: 00 09-12 00:00 :00 No [facility] divalproex 125 mg EC tablet 07-21 00:00: 00 09-12 00:00 :00 No [id number] 125mg Take 1 tablet by mouth every 12 (twelve) hours. [facility] divalproex Sprinkles 125 mg SPRINKLE capsule 07-21 00:00: 00 09-12 00:00 :00 No [facility] ibuprofen 600 mg tablet 3 00:00: 00 08-01 04:59 :00 No [id number] 600mg Take 1 tablet by mouth every 6 (six) hours as needed for Temp > 38.5 C for up to 14 days. [facility] acetaminoph en-codeine 300-30 mg tablet 130 00:00: 00 09-12 00:00 :00 No TAKE 1 TABLET BY MOUTH EVERY 4 HOURS NEEDED FOR PAIN FOR 2 DAYS [facility] fluticasone propionate 110 mcg/actuati on inhaler 05-31 00:00: 00 09-28 00:00 :00 No [id number] 2{puff} Inhale 2 Puffs every 12 (twelve) hours. [facility] benzonatate (TESSALON PERLES) 100 mg capsule 05-25 00:00: 00 09-25 00:00 :00 No [id number] 100mg Take 1 capsule by mouth every 8 (eight) hours as needed for Cough. [facility] carvediloL 25 mg tablet 2020-05 00:00: 00 02-27 00:00 :00 No 25mg Take 1 tablet by mouth 2 (two) times daily with meals. [facility] losartan 50 mg tablet 2020-05 00:00: 00 02-27 00:00 :00 No 50mg Take 1 tablet by mouth 2 (two) times daily. [facility] proMETHazin e 25 mg tablet 2020-05 00:00: 00 09-12 00:00 :00 No [facility] methocarbam oL (ROBAXIN) 500 mg tablet 2020-05 00:00: 00 05-25 00:00 :00 No [id number] 500mg Take 1 tablet by mouth every 6 (six) hours as needed (MUSCLE SPASM). [facility] vitamin B-12 (VITAMIN B-12) 500 mcg tablet 2020-05 00:00: 00 09-12 00:00 :00 No [id number] 500ug Take 1 tablet by mouth daily. [facility] methylPREDN ISolone 4 mg tablets 2020-05 00:00: 00 05-25 00:00 :00 No [id number] Follow package directions [facility] fluticasone propion-chel meteroL 115-21 mcg/actuati on inhaler 02-09 00:00: 00 05-25 00:00 :00 No [id number] 2{puff} Inhale 2 Puffs 2 (two) times daily. Rinse mouth after each use. [facility] albuterol 2.5 mg /3 mL (0.083 %) nebulizer solution 02-09 00:00: 00 05-25 00:00 :00 No [id number] 2.5mg Inhale 3 mL every 6 (six) hours as needed for Wheezing or Shortness of Breath. [facility] methocarbam oL (ROBAXIN) 500 mg tablet 02-09 00:00: 00 05-02 00:00 :00 No [id number] 500mg Take 1 tablet by mouth every 6 (six) hours as needed (MUSCLE SPASM). [facility] bromphenira mine-pseudo ephedrine-D M (BROMFED DM) 2-30-10 mg/5 mL syrup 01-31 00:00: 00 02-09 00:00 :00 No [id number] 5mL Take 5 mL by mouth 4 (four) times daily as needed for Cough. [facility] methylPREDN ISolone (MEDROL, ANABELA,) 4 mg tablets 01-20 00:00: 00 02-09 00:00 :00 No [id number] Take by mouth SEE-INSTRU CTIONS. follow package directions [facility] albuterol 90 mcg/actuati on inhaler 01-12 00:00: 00 05-25 00:00 :00 No [id number] 2{puff} Inhale 2 Puffs every 4 (four) hours as needed for Wheezing or Shortness of Breath. [facility] benzonatate 100 mg capsule 01-12 00:00: 00 02-19 00:00 :00 No [id number] 100mg Take 1 capsule by mouth 3 (three) times daily as needed for Cough. [facility] losartan 50 mg tablet 12-23 00:00: 00 02-09 00:00 :00 No 50mg Take 1 tablet by mouth 2 (two) times daily. [facility] topiramate 25 mg tablet 11-22 00:00: 00 12-26 00:00 :00 No 25mg Take 1 tablet by mouth 2 (two) times daily. [facility] OXcarbazepi ne 150 mg tablet 11-21 00:00: 02-09 00:00 :00 No [facility] FLUoxetine 40 mg capsule -12 00:00: 00 12-26 00:00 :00 No [facility] traZODone 100 mg tablet 12 00:00: 00 12-26 00:00 :00 No [facility] dicyclomine 20 mg tablet 610 00:00: 00 12-26 00:00 :00 No [id number] 20mg Take 1 tablet by mouth 4 (four) times daily. [facility] proMETHazin e 25 mg tablet 6 00:00: 00 12-26 00:00 :00 No [id number] 25mg Take 1 tablet by mouth every 6 (six) hours as needed for Nausea and Vomiting (N/V). [facility] acetaminoph en-codeine 300-30 mg tablet 05 00:00: 00 12-26 00:00 :00 No TAKE 2 TABLETS BY MOUTH EVERY 6 HOURS NEEDED FOR PAIN [facility] oxybutynin (DITROPAN XL) 10 mg 24 hr tablet 10-09 00:00: 00 12-26 00:00 :00 No [id number] 10mg Take 1 tablet by mouth daily. [facility] ondansetron (ZOFRAN ODT) 4 mg disintegrat ing tablet 10-09 00:00: 00 12-26 00:00 :00 No [id number] 4mg Take 1 tablet by mouth every 8 (eight) hours as needed for Nausea and Vomiting (N/V). [facility] ciprofloxac in HCl 500 mg tablet 30 00:00: 00 11-22 00:00 :00 No [id number] 500mg Take 1 tablet by mouth 2 (two) times daily. [facility] predniSONE 20 mg tablet 25 00:00: 00 11-22 00:00 :00 No [id number] 20mg Take 1 tablet by mouth daily. Days 1-2: 3 pills (60 mg). Days 3-4: 2 pills (40 mg). Days 5-6: 1 pill (20 mg). Days 7-8: 1/2 pill (10 mg). Then stop [facility] mupirocin 2 % ointment 09-29 00:00: 00 12-26 00:00 :00 No [id number] Apply to both nostrils at bedtime [facility] naproxen sodium (ANAPROX DS) 550 mg tablet 09-28 00:00: 00 12-26 00:00 :00 No [id number] 550mg Take 1 tablet by mouth 2 (two) times daily with meals. [facility] losartan 25 mg tablet 09-16 00:00: 00 12-22 00:00 :00 No 25mg Take 1 tablet by mouth 2 (two) times daily. [facility] nadoloL 20 mg tablet 09-16 00:00: 00 12-22 00:00 :00 No [id number] Please take Nadalol 40 mg QAM [facility] LOESTRIN FE (LOESTRIN FE 1/20) 1 mg-20 mcg (21)/75 mg (7) tablet 09-06 00:00: 00 02-09 00:00 :00 No [id number] 1{tbl} Take 1 tablet by mouth daily. [facility] FLUoxetine 20 mg capsule 09-06 00:00: 00 11-22 00:00 :00 No [id number] 20mg Take 1 capsule by mouth daily. [facility] traZODone 50 mg tablet 09-06 00:00: 00 11-22 00:00 :00 No [id number] 50mg Take 1 tablet by mouth at bedtime. [facility] nadoloL 20 mg tablet 08-31 00:00: 00 09-16 00:00 :00 No [id number] Please take Nadalol 40 mg QAM and 20 mg QPM [facility] methocarbam oL (ROBAXIN) 500 mg tablet 4-08 00:00: 00 09-30 00:00 :00 No [id number] 500mg Take 1 tablet by mouth every 6 (six) hours as needed (MUSCLE SPASM). [facility] traMADoL (ULTRAM) 50 mg tablet 4-08 00:00: 00 09-30 00:00 :00 No [id number] 50mg Take 1 tablet by mouth every 6 (six) hours as needed for Pain (scale 7-10). Indication s: acute pain [facility] ibuprofen 800 mg tablet -04 00:00: 00 11-22 00:00 :00 No TAKE 1 TABLET BY MOUTH EVERY 12 HOURS NEEDED FOR PAIN [facility] ondansetron (ZOFRAN ODT) 4 mg disintegrat ing tablet 08-01 00:00: 00 09-30 00:00 :00 No [id number] 4mg Take 1 tablet by mouth every 8 (eight) hours as needed for Nausea and Vomiting (N/V). [facility] ketorolac 10 mg tablet 08-01 00:00: 00 09-30 00:00 :00 No [id number] 10mg Take 1 tablet by mouth every 6 (six) hours as needed for Pain (scale 4-6). [facility] ciprofloxac in HCl 250 mg tablet 08-01 00:00: 00 09-30 00:00 :00 No [id number] 250mg Take 1 tablet by mouth 2 (two) times daily. [facility] lidocaine 5 % (700 mg/patch) patch 07-22 00:00: 00 09-30 00:00 :00 No [id number] 1{patch } Apply 1 Patch to area(s) every 24 (twenty-fo ur) hours as needed for Localized pain. [facility] topiramate 25 mg tablet - 00:00: 00 11-22 00:00 :00 No 25mg Take 1 tablet by mouth 2 (two) times daily. [facility] metoprolol succinate XL 25 mg 24 hr tablet 2019-05 2-21 00:00: 00 06-15 00:00 :00 No [id number] 12.5mg Take 0.5 tablets by mouth 2 (two) times daily for 90 days. [facility] FLUoxetine 20 mg capsule 2019-05 00:00: 09-06 00:00 :00 No 20mg Take 20 mg by mouth daily. [facility] norgestimat e-ethinyl estradiol 0.25-35 mg-mcg per tablet 11-17 00:00: 04-15 00:00 :00 No [id number] 1{tbl} Take 1 tablet by mouth daily. [facility] buPROPion XL (WELLBUTRIN XL) 150 mg 24 hr tablet 08-12 00:00: 01-04 00:00 :00 No [id number] 150mg Take 1 tablet by mouth daily. [facility] acetaminoph en 325 mg tablet 07-22 00:00: 01-04 00:00 :00 No [id number] 650mg Take 2 tablets by mouth every 6 (six) hours as needed for Pain (scale 1-3) or Pain (scale 4-6). [facility] vitamin w/FA tablet 07-22 00:00: 00 01-04 00:00 :00 No [id number] 1{tbl} Take 1 tablet by mouth daily. [facility] docusate calcium 240 mg capsule 07-22 00:00: 00 01-04 00:00 :00 No [id number] 240mg Take 1 capsule by mouth once daily as needed for Constipati on. [facility] ferrous sulfate 325 mg (65 mg iron) tablet 07-22 00:00: 00 01-04 00:00 :00 No [id number] 325mg Take 1 tablet by mouth 2 (two) times daily. [facility] ibuprofen 600 mg tablet 07-22 00:00: 00 01-04 00:00 :00 No [id number] 600mg Take 1 tablet by mouth every 6 (six) hours as needed (Pain). Take with food or milk. [facility] ALBUTEROL 90 mcg/actuati on inhaler 05-26 00:00: 00 05-01 00:00 :00 No [id number] 103 INHALE 2 PUFFS BY MOUTH EVERY 6 HOURS NEEDED FOR WHEEZING FOR SHORTNESS OF BREATH [facility] buPROPion SR (WELLBUTRIN SR) 150 mg SR tablet 05-21 00:00: 00 01-04 00:00 :00 No [id number] 150mg Take 1 tablet by mouth 2 (two) times daily. [facility] busPIRone 10 mg tablet 05-21 00:00: 01-04 00:00 :00 No [id number] 109 10mg Take 1 tablet by mouth 3 (three) times daily. [facility] Immunizations Ordered Immunization Name Filled Immunization Name Date Status Comments Source Influenza Virus Vaccine Quad IM, Preserv and ABX Free 6 MO-64 YRS 2022-02-27 00:00:00 Completed [facility] Influenza Virus Vaccine Quad IM, Preserv and ABX Free 6 MO-64 YRS 2022-02-27 00:00:00 Completed [facility] Influenza Virus Vaccine Quad IM, Preserv and ABX Free 6 MO-64 YRS 2022-02-27 00:00:00 Completed [facility] Influenza Virus Vaccine Quad IM, Preserv and ABX Free 6 MO-64 YRS 2022-02-27 00:00:00 Completed [facility] Influenza Virus Vaccine Quad IM, Preserv and ABX Free 6 MO-64 YRS 2022-02-27 00:00:00 Completed [facility] Influenza Virus Vaccine Quad IM, Preserv and ABX Free 6 MO-64 YRS 2022-02-27 00:00:00 Completed [facility] Influenza Virus Vaccine Quad IM, Preserv and ABX Free 6 MO-64 YRS 2022-02-27 00:00:00 Completed [facility] Influenza Virus Vaccine Quad IM, Preserv and ABX Free 6 MO-64 YRS 2022-02-27 00:00:00 Completed [facility] Influenza Virus Vaccine Quad IM, Preserv and ABX Free 6 MO-64 YRS 2022-02-27 00:00:00 Completed [facility] Influenza Virus Vaccine Quad IM, Preserv and ABX Free 6 MO-64 YRS 2022-02-27 00:00:00 Completed [facility] Influenza Virus Vaccine Quad IM, Preserv and ABX Free 6 MO-64 YRS 2022-02-27 00:00:00 Completed [facility] Influenza Virus Vaccine Quad IM, Preserv and ABX Free 6 MO-64 YRS 2022-02-27 00:00:00 Completed [facility] Influenza Virus Vaccine Quad IM, Preserv and ABX Free 6 MO-64 YRS 2022-02-27 00:00:00 Completed [facility] Influenza Virus Vaccine Quad IM, Preserv and ABX Free 6 MO-64 YRS 2022-02-27 00:00:00 Completed [facility] Influenza Virus Vaccine Quad IM, Preserv and ABX Free 6 MO-64 YRS 2022-02-27 00:00:00 Completed [facility] Influenza Virus Vaccine Quad IM, Preserv and ABX Free 6 MO-64 YRS 2022-02-27 00:00:00 Completed [facility] Influenza Virus Vaccine Quad IM, Preserv and ABX Free 6 MO-64 YRS 2022-02-27 00:00:00 Completed [facility] Influenza Virus Vaccine Quad IM, Preserv and ABX Free 6 MO-64 YRS 2022-02-27 00:00:00 Completed [facility] Influenza Virus Vaccine Quad IM, Preserv and ABX Free 6 MO-64 YRS 2022-02-27 00:00:00 Completed [facility] Influenza Virus Vaccine Quad IM, Preserv and ABX Free 6 MO-64 YRS 2022-02-27 00:00:00 Completed [facility] Influenza Virus Vaccine Quad IM, Preserv and ABX Free 6 MO-64 YRS 2022-02-27 00:00:00 Completed [facility] Influenza Virus Vaccine Quad IM, Preserv and ABX Free 6 MO-64 YRS 2022-02-27 00:00:00 Completed [facility] Influenza Virus Vaccine Quad IM, Preserv and ABX Free 6 MO-64 YRS 2022-02-27 00:00:00 Completed [facility] Influenza Virus Vaccine Quad IM, Preserv and ABX Free 6 MO-64 YRS 2022-02-27 00:00:00 Completed [facility] Influenza Virus Vaccine Quad IM, Preserv and ABX Free 6 MO-64 YRS 2022-02-27 00:00:00 Completed [facility] Influenza Virus Vaccine Quad IM, Preserv and ABX Free 6 MO-64 YRS 2022-02-27 00:00:00 Completed [facility] Influenza Virus Vaccine Quad IM, Preserv and ABX Free 6 MO-64 YRS 2022-02-27 00:00:00 Completed [facility] Influenza Virus Vaccine Quad IM, Preserv and ABX Free 6 MO-64 YRS 2022-02-27 00:00:00 Completed [facility] Influenza Virus Vaccine Quad IM, Preserv and ABX Free 6 MO-64 YRS 2022-02-27 00:00:00 Completed [facility] Influenza Virus Vaccine Quad IM, Preserv and ABX Free 6 MO-64 YRS 2022-02-27 00:00:00 Completed [facility] Influenza Virus Vaccine Quad IM, Preserv and ABX Free 6 MO-64 YRS 2022-02-27 00:00:00 Completed [facility] Influenza Virus Vaccine Quad IM, Preserv and ABX Free 6 MO-64 YRS 2022-02-27 00:00:00 Completed [facility] Influenza Virus Vaccine Quad IM, Preserv and ABX Free 6 MO-64 YRS 2022-02-27 00:00:00 Completed [facility] Influenza Virus Vaccine Quad IM, Preserv and ABX Free 6 MO-64 YRS 2022-02-27 00:00:00 Completed [facility] Influenza Virus Vaccine Quad IM, Preserv and ABX Free 6 MO-64 YRS 2022-02-27 00:00:00 Completed [facility] Influenza Virus Vaccine Quad IM, Preserv and ABX Free 6 MO-64 YRS 2022-02-27 00:00:00 Completed [facility] Influenza Virus Vaccine Quad IM, Preserv and ABX Free 6 MO-64 YRS 2022-02-27 00:00:00 Completed [facility] Influenza Virus Vaccine Quad IM, Preserv and ABX Free 6 MO-64 YRS 2022-02-27 00:00:00 Completed [facility] Influenza Virus Vaccine Quad IM, Preserv and ABX Free 6 MO-64 YRS 2022-02-27 00:00:00 Completed [facility] Influenza Virus Vaccine Quad IM, Preserv and ABX Free 6 MO-64 YRS 2022-02-27 00:00:00 Completed [facility] Influenza Virus Vaccine Quad IM, Preserv and ABX Free 6 MO-64 YRS 2022-02-27 00:00:00 Completed [facility] Influenza Virus Vaccine Quad IM, Preserv and ABX Free 6 MO-64 YRS 2022-02-27 00:00:00 Completed [facility] Influenza Virus Vaccine Quad IM, Preserv and ABX Free 6 MO-64 YRS 2022-02-27 00:00:00 Completed [facility] Influenza Virus Vaccine Quad IM, Preserv and ABX Free 6 MO-64 YRS 2022-02-27 00:00:00 Completed [facility] Influenza Virus Vaccine Quad IM, Preserv and ABX Free 6 MO-64 YRS 2022-02-27 00:00:00 Completed [facility] Influenza Virus Vaccine Quad IM, Preserv and ABX Free 6 MO-64 YRS 2022-02-27 00:00:00 Completed [facility] Influenza Virus Vaccine Quad IM, Preserv and ABX Free 6 MO-64 YRS 2022-02-27 00:00:00 Completed [facility] Influenza Virus Vaccine Quad IM, Preserv and ABX Free 6 MO-64 YRS 2022-02-27 00:00:00 Completed [facility] Influenza Virus Vaccine Quad IM, Preserv and ABX Free 6 MO-64 YRS 2022-02-27 00:00:00 Completed [facility] Influenza Virus Vaccine Quad IM, Preserv and ABX Free 6 MO-64 YRS (FLUCELVAX) 2022-02-27 00:00:00 Completed [facility] Influenza Virus Vaccine Quad IM, Preserv and ABX Free 6 MO-64 YRS (FLUCELVAX) 2022-02-27 00:00:00 Completed [facility] Influenza Virus Vaccine Quad IM, Preserv and ABX Free 6 MO-64 YRS (FLUCELVAX) 2022-02-27 00:00:00 Completed [facility] Influenza Virus Vaccine Quad .5 mL IM 6+ MO 2022-02-21 00:00:00 Completed [facility] Influenza Virus Vaccine Quad .5 mL IM 6+ MO 2022-02-21 00:00:00 Completed [facility] Influenza Virus Vaccine Quad .5 mL IM 6+ MO 2022-02-21 00:00:00 Completed [facility] Influenza Virus Vaccine Quad .5 mL IM 6+ MO 2022-02-21 00:00:00 Completed [facility] Influenza Virus Vaccine Quad .5 mL IM 6+ MO 2022-02-21 00:00:00 Completed [facility] Influenza Virus Vaccine Quad .5 mL IM 6+ MO 2022-02-21 00:00:00 Completed [facility] Influenza Virus Vaccine Quad .5 mL IM 6+ MO 2022-02-21 00:00:00 Completed [facility] Influenza Virus Vaccine Quad .5 mL IM 6+ MO 2022-02-21 00:00:00 Completed [facility] Influenza Virus Vaccine Quad .5 mL IM 6+ MO 2022-02-21 00:00:00 Completed [facility] Influenza Virus Vaccine Quad .5 mL IM 6+ MO 2022-02-21 00:00:00 Completed [facility] Influenza Virus Vaccine Quad .5 mL IM 6+ MO 2022-02-21 00:00:00 Completed [facility] Influenza Virus Vaccine Quad .5 mL IM 6+ MO 2022-02-21 00:00:00 Completed [facility] Influenza Virus Vaccine Quad .5 mL IM 6+ MO 2022-02-21 00:00:00 Completed [facility] Influenza Virus Vaccine Quad .5 mL IM 6+ MO (FLUZONE/FLULAVAL/F LUARIX) 2022-02-21 00:00:00 Completed [facility] Influenza Virus Vaccine Quad .5 mL IM 6+ MO (FLUZONE/FLULAVAL/F LUARIX) 2022-02-21 00:00:00 Completed [facility] Influenza Virus Vaccine Quad .5 mL IM 6+ MO (FLUZONE/FLULAVAL/F LUARIX) 2022-02-21 00:00:00 Completed [facility] Influenza Virus Vaccine 2021-06-11 00:00:00 Completed [facility] Influenza Virus Vaccine 2021-06-11 00:00:00 Completed [facility] Influenza Virus Vaccine 2021-06-11 00:00:00 Completed [facility] Influenza Virus Vaccine 2021-06-11 00:00:00 Completed [facility] Influenza Virus Vaccine 2021-06-11 00:00:00 Completed [facility] Influenza Virus Vaccine 2021-06-11 00:00:00 Completed [facility] Influenza Virus Vaccine 2021-06-11 00:00:00 Completed [facility] Influenza Virus Vaccine 2021-06-11 00:00:00 Completed [facility] Influenza Virus Vaccine 2021-06-11 00:00:00 Completed [facility] Influenza Virus Vaccine 2021-06-11 00:00:00 Completed [facility] Influenza Virus Vaccine 2021-06-11 00:00:00 Completed [facility] Influenza Virus Vaccine 2021-06-11 00:00:00 Completed [facility] Influenza Virus Vaccine 2021-06-11 00:00:00 Completed [facility] Influenza Virus Vaccine 2021-06-11 00:00:00 Completed [facility] Influenza Virus Vaccine 2021-06-11 00:00:00 Completed [facility] Influenza Virus Vaccine 2021-06-11 00:00:00 Completed [facility] Influenza Virus Vaccine 2021-06-11 00:00:00 Completed [facility] Influenza Virus Vaccine 2021-06-11 00:00:00 Completed [facility] Influenza Virus Vaccine 2021-06-11 00:00:00 Completed [facility] Influenza Virus Vaccine 2021-06-11 00:00:00 Completed [facility] Influenza Virus Vaccine 2021-06-11 00:00:00 Completed [facility] Influenza Virus Vaccine 2021-06-11 00:00:00 Completed [facility] Influenza Virus Vaccine 2021-06-11 00:00:00 Completed [facility] Influenza Virus Vaccine 2021-06-11 00:00:00 Completed [facility] Influenza Virus Vaccine 2021-06-11 00:00:00 Completed [facility] Influenza Virus Vaccine 2021-06-11 00:00:00 Completed [facility] Influenza Virus Vaccine 2021-06-11 00:00:00 Completed [facility] Influenza Virus Vaccine 2021-06-11 00:00:00 Completed [facility] Influenza Virus Vaccine 2021-06-11 00:00:00 Completed [facility] Influenza Virus Vaccine 2021-06-11 00:00:00 Completed [facility] Influenza Virus Vaccine 2021-06-11 00:00:00 Completed [facility] Influenza Virus Vaccine 2021-06-11 00:00:00 Completed [facility] Influenza Virus Vaccine 2021-06-11 00:00:00 Completed [facility] Influenza Virus Vaccine 2021-06-11 00:00:00 Completed [facility] Influenza Virus Vaccine 2021-06-11 00:00:00 Completed [facility] Influenza Virus Vaccine 2021-06-11 00:00:00 Completed [facility] Influenza Virus Vaccine 2021-06-11 00:00:00 Completed [facility] Influenza Virus Vaccine 2021-06-11 00:00:00 Completed [facility] Influenza Virus Vaccine 2021-06-11 00:00:00 Completed [facility] Influenza Virus Vaccine 2021-06-11 00:00:00 Completed [facility] Influenza Virus Vaccine 2021-06-11 00:00:00 Completed [facility] Influenza Virus Vaccine 2021-06-11 00:00:00 Completed [facility] Influenza Virus Vaccine 2021-06-11 00:00:00 Completed [facility] Influenza Virus Vaccine 2021-06-11 00:00:00 Completed [facility] Influenza Virus Vaccine 2021-06-11 00:00:00 Completed [facility] Influenza Virus Vaccine 2021-06-11 00:00:00 Completed [facility] Influenza Virus Vaccine 2021-06-11 00:00:00 Completed [facility] Influenza Virus Vaccine 2021-06-11 00:00:00 Completed [facility] Influenza Virus Vaccine Quad .5 mL IM 6+ MO 2021-06-11 00:00:00 Completed [facility] Influenza Virus Vaccine 2021-06-11 00:00:00 Completed [facility] Influenza Virus Vaccine Quad .5 mL IM 6+ MO 2021-06-11 00:00:00 Completed [facility] Influenza Virus Vaccine 2021-06-11 00:00:00 Completed [facility] Influenza Virus Vaccine Quad .5 mL IM 6+ MO 2021-06-11 00:00:00 Completed [facility] Influenza Virus Vaccine 2021-06-11 00:00:00 Completed [facility] Influenza Virus Vaccine Quad .5 mL IM 6+ MO 2021-06-11 00:00:00 Completed [facility] Influenza Virus Vaccine 2021-06-11 00:00:00 Completed [facility] Influenza Virus Vaccine Quad .5 mL IM 6+ MO 2021-06-11 00:00:00 Completed [facility] Influenza Virus Vaccine 2021-06-11 00:00:00 Completed [facility] Influenza Virus Vaccine Quad .5 mL IM 6+ MO 2021-06-11 00:00:00 Completed [facility] Influenza Virus Vaccine 2021-06-11 00:00:00 Completed [facility] Influenza Virus Vaccine Quad .5 mL IM 6+ MO 2021-06-11 00:00:00 Completed [facility] Influenza Virus Vaccine 2021-06-11 00:00:00 Completed [facility] Influenza Virus Vaccine Quad .5 mL IM 6+ MO 2021-06-11 00:00:00 Completed [facility] Influenza Virus Vaccine 2021-06-11 00:00:00 Completed [facility] Influenza Virus Vaccine Quad .5 mL IM 6+ MO 2021-06-11 00:00:00 Completed [facility] Influenza Virus Vaccine 2021-06-11 00:00:00 Completed [facility] Influenza Virus Vaccine Quad .5 mL IM 6+ MO 2021-06-11 00:00:00 Completed [facility] Influenza Virus Vaccine 2021-06-11 00:00:00 Completed [facility] Influenza Virus Vaccine Quad .5 mL IM 6+ MO 2021-06-11 00:00:00 Completed [facility] Influenza Virus Vaccine 2021-06-11 00:00:00 Completed [facility] Influenza Virus Vaccine Quad .5 mL IM 6+ MO 2021-06-11 00:00:00 Completed [facility] Influenza Virus Vaccine 2021-06-11 00:00:00 Completed [facility] Influenza Virus Vaccine Quad .5 mL IM 6+ MO 2021-06-11 00:00:00 Completed [facility] Influenza Virus Vaccine 2021-06-11 00:00:00 Completed [facility] Influenza Virus Vaccine Quad .5 mL IM 6+ MO (FLUZONE/FLULAVAL/F LUARIX) 2021-06-11 00:00:00 Completed [facility] Influenza Virus Vaccine 2021-06-11 00:00:00 Completed [facility] Influenza Virus Vaccine Quad .5 mL IM 6+ MO (FLUZONE/FLULAVAL/F LUARIX) 2021-06-11 00:00:00 Completed [facility] Influenza Virus Vaccine 2021-06-11 00:00:00 Completed [facility] Influenza Virus Vaccine Quad .5 mL IM 6+ MO (FLUZONE/FLULAVAL/F LUARIX) 2021-06-11 00:00:00 Completed [facility] Influenza Virus Vaccine 2020-05-19 00:00:00 Completed [facility] Influenza Virus Vaccine 2020-05-19 00:00:00 Completed [facility] Influenza Virus Vaccine 2020-05-19 00:00:00 Completed [facility] Influenza Virus Vaccine 2020-05-19 00:00:00 Completed [facility] Influenza Virus Vaccine 2020-05-19 00:00:00 Completed [facility] Influenza Virus Vaccine 2020-05-19 00:00:00 Completed [facility] Influenza Virus Vaccine 2020-05-19 00:00:00 Completed [facility] Influenza Virus Vaccine 2020-05-19 00:00:00 Completed [facility] Influenza Virus Vaccine 2020-05-19 00:00:00 Completed [facility] Influenza Virus Vaccine 2020-05-19 00:00:00 Completed [facility] Influenza Virus Vaccine 2020-05-19 00:00:00 Completed [facility] Influenza Virus Vaccine 2020-05-19 00:00:00 Completed [facility] Influenza Virus Vaccine 2020-05-19 00:00:00 Completed [facility] Influenza Virus Vaccine 2020-05-19 00:00:00 Completed [facility] Influenza Virus Vaccine 2020-05-19 00:00:00 Completed [facility] Influenza Virus Vaccine 2020-05-19 00:00:00 Completed [facility] Influenza Virus Vaccine 2020-05-19 00:00:00 Completed [facility] Influenza Virus Vaccine 2020-05-19 00:00:00 Completed [facility] Influenza Virus Vaccine 2020-05-19 00:00:00 Completed [facility] Influenza Virus Vaccine 2020-05-19 00:00:00 Completed [facility] Influenza Virus Vaccine 2020-05-19 00:00:00 Completed [facility] Influenza Virus Vaccine 2020-05-19 00:00:00 Completed [facility] Influenza Virus Vaccine 2020-05-19 00:00:00 Completed [facility] Influenza Virus Vaccine 2020-05-19 00:00:00 Completed [facility] Influenza Virus Vaccine 2020-05-19 00:00:00 Completed [facility] Influenza Virus Vaccine 2020-05-19 00:00:00 Completed [facility] Influenza Virus Vaccine 2020-05-19 00:00:00 Completed [facility] Influenza Virus Vaccine 2020-05-19 00:00:00 Completed [facility] Influenza Virus Vaccine 2020-05-19 00:00:00 Completed [facility] Influenza Virus Vaccine 2020-05-19 00:00:00 Completed [facility] Influenza Virus Vaccine 2020-05-19 00:00:00 Completed [facility] Influenza Virus Vaccine 2020-05-19 00:00:00 Completed [facility] Influenza Virus Vaccine 2020-05-19 00:00:00 Completed [facility] Influenza Virus Vaccine 2020-05-19 00:00:00 Completed [facility] Influenza Virus Vaccine 2020-05-19 00:00:00 Completed [facility] Influenza Virus Vaccine 2020-05-19 00:00:00 Completed [facility] Influenza Virus Vaccine 2020-05-19 00:00:00 Completed [facility] Influenza Virus Vaccine 2020-05-19 00:00:00 Completed [facility] Influenza Virus Vaccine 2020-05-19 00:00:00 Completed [facility] Influenza Virus Vaccine 2020-05-19 00:00:00 Completed [facility] Influenza Virus Vaccine 2020-05-19 00:00:00 Completed [facility] Influenza Virus Vaccine 2020-05-19 00:00:00 Completed [facility] Influenza Virus Vaccine 2020-05-19 00:00:00 Completed [facility] Influenza Virus Vaccine 2020-05-19 00:00:00 Completed [facility] Influenza Virus Vaccine 2020-05-19 00:00:00 Completed [facility] Influenza Virus Vaccine 2020-05-19 00:00:00 Completed [facility] Influenza Virus Vaccine 2020-05-19 00:00:00 Completed [facility] Influenza Virus Vaccine 2020-05-19 00:00:00 Completed [facility] Influenza Virus Vaccine 2020-05-19 00:00:00 Completed [facility] Influenza Virus Vaccine 2020-05-19 00:00:00 Completed [facility] Influenza Virus Vaccine 2020-05-19 00:00:00 Completed [facility] Influenza Virus Vaccine 2020-05-19 00:00:00 Completed [facility] Influenza Virus Vaccine 2020-05-19 00:00:00 Completed [facility] Influenza Virus Vaccine 2020-05-19 00:00:00 Completed [facility] Influenza Virus Vaccine 2020-05-19 00:00:00 Completed [facility] Influenza Virus Vaccine 2020-05-19 00:00:00 Completed [facility] Influenza Virus Vaccine 2020-05-19 00:00:00 Completed [facility] Influenza Virus Vaccine 2020-05-19 00:00:00 Completed [facility] Influenza Virus Vaccine 2020-05-19 00:00:00 Completed [facility] Influenza Virus Vaccine 2020-05-19 00:00:00 Completed [facility] Influenza Virus Vaccine 2020-05-19 00:00:00 Completed [facility] Influenza Virus Vaccine 2020-05-19 00:00:00 Completed [facility] Influenza Virus Vaccine 2020-05-19 00:00:00 Completed [facility] Influenza Virus Vaccine Recomb Quad IM, Preserv and ABX Free 18-64 YRS 2020-05-16 00:00:00 Completed [facility] Influenza Virus Vaccine Recomb Quad IM, Preserv and ABX Free 18-64 YRS 2020-05-16 00:00:00 Completed [facility] Influenza Virus Vaccine Recomb Quad IM, Preserv and ABX Free 18-64 YRS 2020-05-16 00:00:00 Completed [facility] Influenza Virus Vaccine Recomb Quad IM, Preserv and ABX Free 18-64 YRS 2020-05-16 00:00:00 Completed [facility] Influenza Virus Vaccine Recomb Quad IM, Preserv and ABX Free 18-64 YRS 2020-05-16 00:00:00 Completed [facility] Influenza Virus Vaccine Recomb Quad IM, Preserv and ABX Free 18-64 YRS 2020-05-16 00:00:00 Completed [facility] Influenza Virus Vaccine Recomb Quad IM, Preserv and ABX Free 18-64 YRS 2020-05-16 00:00:00 Completed [facility] Influenza Virus Vaccine Recomb Quad IM, Preserv and ABX Free 18-64 YRS 2020-05-16 00:00:00 Completed [facility] Influenza Virus Vaccine Recomb Quad IM, Preserv and ABX Free 18-64 YRS 2020-05-16 00:00:00 Completed [facility] Influenza Virus Vaccine Recomb Quad IM, Preserv and ABX Free 18-64 YRS 2020-05-16 00:00:00 Completed [facility] Influenza Virus Vaccine Recomb Quad IM, Preserv and ABX Free 18-64 YRS 2020-05-16 00:00:00 Completed [facility] Influenza Virus Vaccine Recomb Quad IM, Preserv and ABX Free 18-64 YRS 2020-05-16 00:00:00 Completed [facility] Influenza Virus Vaccine Recomb Quad IM, Preserv and ABX Free 18-64 YRS 2020-05-16 00:00:00 Completed [facility] Influenza Virus Vaccine Recomb Quad IM, Preserv and ABX Free 18-64 YRS 2020-05-16 00:00:00 Completed [facility] Influenza Virus Vaccine Recomb Quad IM, Preserv and ABX Free 18-64 YRS 2020-05-16 00:00:00 Completed [facility] Influenza Virus Vaccine Recomb Quad IM, Preserv and ABX Free 18-64 YRS 2020-05-16 00:00:00 Completed [facility] Influenza Virus Vaccine Recomb Quad IM, Preserv and ABX Free 18-64 YRS 2020-05-16 00:00:00 Completed [facility] Influenza Virus Vaccine Recomb Quad IM, Preserv and ABX Free 18-64 YRS 2020-05-16 00:00:00 Completed [facility] Influenza Virus Vaccine Recomb Quad IM, Preserv and ABX Free 18-64 YRS 2020-05-16 00:00:00 Completed [facility] Influenza Virus Vaccine Recomb Quad IM, Preserv and ABX Free 18-64 YRS 2020-05-16 00:00:00 Completed [facility] Influenza Virus Vaccine Recomb Quad IM, Preserv and ABX Free 18-64 YRS 2020-05-16 00:00:00 Completed [facility] Influenza Virus Vaccine Recomb Quad IM, Preserv and ABX Free 18-64 YRS 2020-05-16 00:00:00 Completed [facility] Influenza Virus Vaccine Recomb Quad IM, Preserv and ABX Free 18-64 YRS 2020-05-16 00:00:00 Completed [facility] Influenza Virus Vaccine Recomb Quad IM, Preserv and ABX Free 18-64 YRS 2020-05-16 00:00:00 Completed [facility] Influenza Virus Vaccine Recomb Quad IM, Preserv and ABX Free 18-64 YRS 2020-05-16 00:00:00 Completed [facility] Influenza Virus Vaccine Recomb Quad IM, Preserv and ABX Free 18-64 YRS 2020-05-16 00:00:00 Completed [facility] Influenza Virus Vaccine Recomb Quad IM, Preserv and ABX Free 18-64 YRS 2020-05-16 00:00:00 Completed [facility] Influenza Virus Vaccine Recomb Quad IM, Preserv and ABX Free 18-64 YRS 2020-05-16 00:00:00 Completed [facility] Influenza Virus Vaccine Recomb Quad IM, Preserv and ABX Free 18-64 YRS 2020-05-16 00:00:00 Completed [facility] Influenza Virus Vaccine Recomb Quad IM, Preserv and ABX Free 18-64 YRS 2020-05-16 00:00:00 Completed [facility] Influenza Virus Vaccine Recomb Quad IM, Preserv and ABX Free 18-64 YRS 2020-05-16 00:00:00 Completed [facility] Influenza Virus Vaccine Recomb Quad IM, Preserv and ABX Free 18-64 YRS 2020-05-16 00:00:00 Completed [facility] Influenza Virus Vaccine Recomb Quad IM, Preserv and ABX Free 18-64 YRS 2020-05-16 00:00:00 Completed [facility] Influenza Virus Vaccine Recomb Quad IM, Preserv and ABX Free 18-64 YRS 2020-05-16 00:00:00 Completed [facility] Influenza Virus Vaccine Recomb Quad IM, Preserv and ABX Free 18-64 YRS 2020-05-16 00:00:00 Completed [facility] Influenza Virus Vaccine Recomb Quad IM, Preserv and ABX Free 18-64 YRS 2020-05-16 00:00:00 Completed [facility] Influenza Virus Vaccine Recomb Quad IM, Preserv and ABX Free 18-64 YRS 2020-05-16 00:00:00 Completed [facility] Influenza Virus Vaccine Recomb Quad IM, Preserv and ABX Free 18-64 YRS 2020-05-16 00:00:00 Completed [facility] Influenza Virus Vaccine Recomb Quad IM, Preserv and ABX Free 18-64 YRS 2020-05-16 00:00:00 Completed [facility] Influenza Virus Vaccine Recomb Quad IM, Preserv and ABX Free 18-64 YRS 2020-05-16 00:00:00 Completed [facility] Influenza Virus Vaccine Recomb Quad IM, Preserv and ABX Free 18-64 YRS 2020-05-16 00:00:00 Completed [facility] Influenza Virus Vaccine Recomb Quad IM, Preserv and ABX Free 18-64 YRS 2020-05-16 00:00:00 Completed [facility] Influenza Virus Vaccine Recomb Quad IM, Preserv and ABX Free 18-64 YRS 2020-05-16 00:00:00 Completed [facility] Influenza Virus Vaccine Recomb Quad IM, Preserv and ABX Free 18-64 YRS 2020-05-16 00:00:00 Completed [facility] Influenza Virus Vaccine Recomb Quad IM, Preserv and ABX Free 18-64 YRS 2020-05-16 00:00:00 Completed [facility] Influenza Virus Vaccine Recomb Quad IM, Preserv and ABX Free 18-64 YRS 2020-05-16 00:00:00 Completed [facility] Influenza Virus Vaccine Recomb Quad IM, Preserv and ABX Free 18-64 YRS 2020-05-16 00:00:00 Completed [facility] Influenza Virus Vaccine Recomb Quad IM, Preserv and ABX Free 18-64 YRS 2020-05-16 00:00:00 Completed [facility] Influenza Virus Vaccine Recomb Quad IM, Preserv and ABX Free 18-64 YRS 2020-05-16 00:00:00 Completed [facility] Influenza Virus Vaccine Recomb Quad IM, Preserv and ABX Free 18-64 YRS 2020-05-16 00:00:00 Completed [facility] Influenza Virus Vaccine Recomb Quad IM, Preserv and ABX Free 18-64 YRS 2020-05-16 00:00:00 Completed [facility] Influenza Virus Vaccine Recomb Quad IM, Preserv and ABX Free 18-64 YRS 2020-05-16 00:00:00 Completed [facility] Influenza Virus Vaccine Recomb Quad IM, Preserv and ABX Free 18-64 YRS 2020-05-16 00:00:00 Completed [facility] Influenza Virus Vaccine Recomb Quad IM, Preserv and ABX Free 18-64 YRS 2020-05-16 00:00:00 Completed [facility] Influenza Virus Vaccine Recomb Quad IM, Preserv and ABX Free 18-64 YRS 2020-05-16 00:00:00 Completed [facility] Influenza Virus Vaccine Recomb Quad IM, Preserv and ABX Free 18-64 YRS 2020-05-16 00:00:00 Completed [facility] Influenza Virus Vaccine Recomb Quad IM, Preserv and ABX Free 18-64 YRS 2020-05-16 00:00:00 Completed [facility] Influenza Virus Vaccine Recomb Quad IM, Preserv and ABX Free 18-64 YRS 2020-05-16 00:00:00 Completed [facility] Influenza Virus Vaccine Recomb Quad IM, Preserv and ABX Free 18-64 YRS 2020-05-16 00:00:00 Completed [facility] Influenza Virus Vaccine Recomb Quad IM, Preserv and ABX Free 18-64 YRS 2020-05-16 00:00:00 Completed [facility] Influenza Virus Vaccine Recomb Quad IM, Preserv and ABX Free 18-64 YRS 2020-05-16 00:00:00 Completed [facility] Influenza Virus Vaccine Recomb Quad IM, Preserv and ABX Free 18-64 YRS 2020-05-16 00:00:00 Completed [facility] Influenza Virus Vaccine Recomb Quad IM, Preserv and ABX Free 18-64 YRS 2020-05-16 00:00:00 Completed [facility] TDAP (ADACEL) VACCINE 2019-05-21 00:00:00 Completed [facility] TDAP (ADACEL) VACCINE 2019-05-21 00:00:00 Completed [facility] TDAP (ADACEL) VACCINE 2019-05-21 00:00:00 Completed [facility] TDAP (ADACEL) VACCINE 2019-05-21 00:00:00 Completed [facility] TDAP (ADACEL) VACCINE 2019-05-21 00:00:00 Completed [facility] TDAP (ADACEL) VACCINE 2019-05-21 00:00:00 Completed [facility] TDAP (ADACEL) VACCINE 2019-05-21 00:00:00 Completed [facility] TDAP (ADACEL) VACCINE 2019-05-21 00:00:00 Completed [facility] TDAP (ADACEL) VACCINE 2019-05-21 00:00:00 Completed [facility] TDAP (ADACEL) VACCINE 2019-05-21 00:00:00 Completed [facility] TDAP (ADACEL) VACCINE 2019-05-21 00:00:00 Completed [facility] TDAP (ADACEL) VACCINE 2019-05-21 00:00:00 Completed [facility] TDAP (ADACEL) VACCINE 2019-05-21 00:00:00 Completed [facility] TDAP (ADACEL) VACCINE 2019-05-21 00:00:00 Completed [facility] TDAP (ADACEL) VACCINE 2019-05-21 00:00:00 Completed [facility] TDAP (ADACEL) VACCINE 2019-05-21 00:00:00 Completed [facility] TDAP (ADACEL) VACCINE 2019-05-21 00:00:00 Completed [facility] TDAP (ADACEL) VACCINE 2019-05-21 00:00:00 Completed [facility] TDAP (ADACEL) VACCINE 2019-05-21 00:00:00 Completed [facility] TDAP (ADACEL) VACCINE 2019-05-21 00:00:00 Completed [facility] TDAP (ADACEL) VACCINE 2019-05-21 00:00:00 Completed [facility] TDAP (ADACEL) VACCINE 2019-05-21 00:00:00 Completed [facility] TDAP (ADACEL) VACCINE 2019-05-21 00:00:00 Completed [facility] TDAP (ADACEL) VACCINE 2019-05-21 00:00:00 Completed [facility] TDAP (ADACEL) VACCINE 2019-05-21 00:00:00 Completed [facility] TDAP (ADACEL) VACCINE 2019-05-21 00:00:00 Completed [facility] TDAP (ADACEL) VACCINE 2019-05-21 00:00:00 Completed [facility] TDAP (ADACEL) VACCINE 2019-05-21 00:00:00 Completed [facility] TDAP (ADACEL) VACCINE 2019-05-21 00:00:00 Completed [facility] TDAP (ADACEL) VACCINE 2019-05-21 00:00:00 Completed [facility] TDAP (ADACEL) VACCINE 2019-05-21 00:00:00 Completed [facility] TDAP (ADACEL) VACCINE 2019-05-21 00:00:00 Completed [facility] TDAP (ADACEL) VACCINE 2019-05-21 00:00:00 Completed [facility] TDAP (ADACEL) VACCINE 2019-05-21 00:00:00 Completed [facility] TDAP (ADACEL) VACCINE 2019-05-21 00:00:00 Completed [facility] TDAP (ADACEL) VACCINE 2019-05-21 00:00:00 Completed [facility] TDAP (ADACEL) VACCINE 2019-05-21 00:00:00 Completed [facility] TDAP (ADACEL) VACCINE 2019-05-21 00:00:00 Completed [facility] TDAP (ADACEL) VACCINE 2019-05-21 00:00:00 Completed [facility] TDAP (ADACEL) VACCINE 2019-05-21 00:00:00 Completed [facility] TDAP (ADACEL) VACCINE 2019-05-21 00:00:00 Completed [facility] TDAP (ADACEL) VACCINE 2019-05-21 00:00:00 Completed [facility] TDAP (ADACEL) VACCINE 2019-05-21 00:00:00 Completed [facility] TDAP (ADACEL) VACCINE 2019-05-21 00:00:00 Completed [facility] TDAP (ADACEL) VACCINE 2019-05-21 00:00:00 Completed [facility] TDAP (ADACEL) VACCINE 2019-05-21 00:00:00 Completed [facility] TDAP (ADACEL) VACCINE 2019-05-21 00:00:00 Completed [facility] TDAP (ADACEL) VACCINE 2019-05-21 00:00:00 Completed [facility] TDAP (ADACEL) VACCINE 2019-05-21 00:00:00 Completed [facility] TDAP (ADACEL) VACCINE 2019-05-21 00:00:00 Completed [facility] TDAP (ADACEL) VACCINE 2019-05-21 00:00:00 Completed [facility] TDAP (ADACEL) VACCINE 2019-05-21 00:00:00 Completed [facility] TDAP (ADACEL) VACCINE 2019-05-21 00:00:00 Completed [facility] TDAP (ADACEL) VACCINE 2019-05-21 00:00:00 Completed [facility] TDAP (ADACEL) VACCINE 2019-05-21 00:00:00 Completed [facility] TDAP (ADACEL) VACCINE 2019-05-21 00:00:00 Completed [facility] TDAP (ADACEL) VACCINE 2019-05-21 00:00:00 Completed [facility] TDAP (ADACEL) VACCINE 2019-05-21 00:00:00 Completed [facility] TDAP (ADACEL) VACCINE 2019-05-21 00:00:00 Completed [facility] TDAP (ADACEL) VACCINE 2019-05-21 00:00:00 Completed [facility] TDAP (ADACEL) VACCINE 2019-05-21 00:00:00 Completed [facility] TDAP (ADACEL) VACCINE 2019-05-21 00:00:00 Completed [facility] TDAP (ADACEL) VACCINE 2019-05-21 00:00:00 Completed [facility] Influenza Virus Vaccine Quad .5 mL IM 6+ MO 2019-02-06 00:00:00 Completed [facility] Influenza Virus Vaccine Quad .5 mL IM 6+ MO 2019-02-06 00:00:00 Completed [facility] Influenza Virus Vaccine Quad .5 mL IM 6+ MO 2019-02-06 00:00:00 Completed [facility] Influenza Virus Vaccine Quad .5 mL IM 6+ MO 2019-02-06 00:00:00 Completed [facility] Influenza Virus Vaccine Quad .5 mL IM 6+ MO 2019-02-06 00:00:00 Completed [facility] Influenza Virus Vaccine Quad .5 mL IM 6+ MO 2019-02-06 00:00:00 Completed [facility] Influenza Virus Vaccine Quad .5 mL IM 6+ MO 2019-02-06 00:00:00 Completed [facility] Influenza Virus Vaccine Quad .5 mL IM 6+ MO 2019-02-06 00:00:00 Completed [facility] Influenza Virus Vaccine Quad .5 mL IM 6+ MO 2019-02-06 00:00:00 Completed [facility] Influenza Virus Vaccine Quad .5 mL IM 6+ MO 2019-02-06 00:00:00 Completed [facility] Influenza Virus Vaccine Quad .5 mL IM 6+ MO 2019-02-06 00:00:00 Completed [facility] Influenza Virus Vaccine Quad .5 mL IM 6+ MO 2019-02-06 00:00:00 Completed [facility] Influenza Virus Vaccine Quad .5 mL IM 6+ MO 2019-02-06 00:00:00 Completed [facility] Influenza Virus Vaccine Quad .5 mL IM 6+ MO 2019-02-06 00:00:00 Completed [facility] Influenza Virus Vaccine Quad .5 mL IM 6+ MO 2019-02-06 00:00:00 Completed [facility] Influenza Virus Vaccine Quad .5 mL IM 6+ MO 2019-02-06 00:00:00 Completed [facility] Influenza Virus Vaccine Quad .5 mL IM 6+ MO 2019-02-06 00:00:00 Completed [facility] Influenza Virus Vaccine Quad .5 mL IM 6+ MO 2019-02-06 00:00:00 Completed [facility] Influenza Virus Vaccine Quad .5 mL IM 6+ MO 2019-02-06 00:00:00 Completed [facility] Influenza Virus Vaccine Quad .5 mL IM 6+ MO 2019-02-06 00:00:00 Completed [facility] Influenza Virus Vaccine Quad .5 mL IM 6+ MO 2019-02-06 00:00:00 Completed [facility] Influenza Virus Vaccine Quad .5 mL IM 6+ MO 2019-02-06 00:00:00 Completed [facility] Influenza Virus Vaccine Quad .5 mL IM 6+ MO 2019-02-06 00:00:00 Completed [facility] Influenza Virus Vaccine Quad .5 mL IM 6+ MO 2019-02-06 00:00:00 Completed [facility] Influenza Virus Vaccine Quad .5 mL IM 6+ MO 2019-02-06 00:00:00 Completed [facility] Influenza Virus Vaccine Quad .5 mL IM 6+ MO 2019-02-06 00:00:00 Completed [facility] Influenza Virus Vaccine Quad .5 mL IM 6+ MO 2019-02-06 00:00:00 Completed [facility] Influenza Virus Vaccine Quad .5 mL IM 6+ MO 2019-02-06 00:00:00 Completed [facility] Influenza Virus Vaccine Quad .5 mL IM 6+ MO 2019-02-06 00:00:00 Completed [facility] Influenza Virus Vaccine Quad .5 mL IM 6+ MO 2019-02-06 00:00:00 Completed [facility] Influenza Virus Vaccine Quad .5 mL IM 6+ MO 2019-02-06 00:00:00 Completed [facility] Influenza Virus Vaccine Quad .5 mL IM 6+ MO 2019-02-06 00:00:00 Completed [facility] Influenza Virus Vaccine Quad .5 mL IM 6+ MO 2019-02-06 00:00:00 Completed [facility] Influenza Virus Vaccine Quad .5 mL IM 6+ MO 2019-02-06 00:00:00 Completed [facility] Influenza Virus Vaccine Quad .5 mL IM 6+ MO 2019-02-06 00:00:00 Completed [facility] Influenza Virus Vaccine Quad .5 mL IM 6+ MO 2019-02-06 00:00:00 Completed [facility] Influenza Virus Vaccine Quad .5 mL IM 6+ MO 2019-02-06 00:00:00 Completed [facility] Influenza Virus Vaccine Quad .5 mL IM 6+ MO 2019-02-06 00:00:00 Completed [facility] Influenza Virus Vaccine Quad .5 mL IM 6+ MO 2019-02-06 00:00:00 Completed [facility] Influenza Virus Vaccine Quad .5 mL IM 6+ MO 2019-02-06 00:00:00 Completed [facility] Influenza Virus Vaccine Quad .5 mL IM 6+ MO 2019-02-06 00:00:00 Completed [facility] Influenza Virus Vaccine Quad .5 mL IM 6+ MO 2019-02-06 00:00:00 Completed [facility] Influenza Virus Vaccine Quad .5 mL IM 6+ MO 2019-02-06 00:00:00 Completed [facility] Influenza Virus Vaccine Quad .5 mL IM 6+ MO 2019-02-06 00:00:00 Completed [facility] Influenza Virus Vaccine Quad .5 mL IM 6+ MO 2019-02-06 00:00:00 Completed [facility] Influenza Virus Vaccine Quad .5 mL IM 6+ MO 2019-02-06 00:00:00 Completed [facility] Influenza Virus Vaccine Quad .5 mL IM 6+ MO 2019-02-06 00:00:00 Completed [facility] Influenza Virus Vaccine Quad .5 mL IM 6+ MO 2019-02-06 00:00:00 Completed [facility] Influenza Virus Vaccine Quad .5 mL IM 6+ MO 2019-02-06 00:00:00 Completed [facility] Influenza Virus Vaccine Quad .5 mL IM 6+ MO 2019-02-06 00:00:00 Completed [facility] Influenza Virus Vaccine Quad .5 mL IM 6+ MO 2019-02-06 00:00:00 Completed [facility] Influenza Virus Vaccine Quad .5 mL IM 6+ MO 2019-02-06 00:00:00 Completed [facility] Influenza Virus Vaccine Quad .5 mL IM 6+ MO 2019-02-06 00:00:00 Completed [facility] Influenza Virus Vaccine Quad .5 mL IM 6+ MO 2019-02-06 00:00:00 Completed [facility] Influenza Virus Vaccine Quad .5 mL IM 6+ MO 2019-02-06 00:00:00 Completed [facility] Influenza Virus Vaccine Quad .5 mL IM 6+ MO 2019-02-06 00:00:00 Completed [facility] Influenza Virus Vaccine Quad .5 mL IM 6+ MO 2019-02-06 00:00:00 Completed [facility] Influenza Virus Vaccine Quad .5 mL IM 6+ MO 2019-02-06 00:00:00 Completed [facility] Influenza Virus Vaccine Quad .5 mL IM 6+ MO 2019-02-06 00:00:00 Completed [facility] Influenza Virus Vaccine Quad .5 mL IM 6+ MO 2019-02-06 00:00:00 Completed [facility] Influenza Virus Vaccine Quad .5 mL IM 6+ MO (FLUZONE/FLULAVAL/F LUARIX) 2019-02-06 00:00:00 Completed [facility] Influenza Virus Vaccine Quad .5 mL IM 6+ MO (FLUZONE/FLULAVAL/F LUARIX) 2019-02-06 00:00:00 Completed [facility] Influenza Virus Vaccine Quad .5 mL IM 6+ MO (FLUZONE/FLULAVAL/F LUARIX) 2019-02-06 00:00:00 Completed [facility] Influenza Virus Vaccine Quad .5 mL IM 6+ MO (FLUZONE/FLULAVAL/F LUARIX) Unknown Completed [facility] TDAP (ADACEL) VACCINE Unknown Completed [facility] Influenza Virus Vaccine Recomb Quad IM, Preserv and ABX Free 18-64 YRS Unknown Completed [facility] Influenza Virus Vaccine Unknown Completed [facility] Influenza Virus Vaccine Unknown Completed [facility] Influenza Virus Vaccine Quad IM, Preserv and ABX Free 6 MO-64 YRS (FLUCELVAX) Unknown Completed [facility] Influenza Virus Vaccine Quad .5 mL IM 6+ MO (FLUZONE/FLULAVAL/F LUARIX) Unknown Completed [facility] Influenza Virus Vaccine Quad .5 mL IM 6+ MO (FLUZONE/FLULAVAL/F LUARIX) Unknown Completed [facility] Influenza Virus Vaccine Quad .5 mL IM 6+ MO (FLUZONE/FLULAVAL/F LUARIX) Unknown Completed [facility] TDAP (ADACEL) VACCINE Unknown Completed [facility] Influenza Virus Vaccine Recomb Quad IM, Preserv and ABX Free 18-64 YRS Unknown Completed [facility] Influenza Virus Vaccine Unknown Completed [facility] Influenza Virus Vaccine Unknown Completed [facility] Influenza Virus Vaccine Quad IM, Preserv and ABX Free 6 MO-64 YRS (FLUCELVAX) Unknown Completed [facility] Influenza Virus Vaccine Quad .5 mL IM 6+ MO (FLUZONE/FLULAVAL/F LUARIX) Unknown Completed [facility] Influenza Virus Vaccine Quad .5 mL IM 6+ MO (FLUZONE/FLULAVAL/F LUARIX) Unknown Completed [facility] Influenza Virus Vaccine Quad .5 mL IM 6+ MO (FLUZONE/FLULAVAL/F LUARIX) Unknown Completed [facility] TDAP (ADACEL) VACCINE Unknown Completed [facility] Influenza Virus Vaccine Recomb Quad IM, Preserv and ABX Free 18-64 YRS Unknown Completed [facility] Influenza Virus Vaccine Unknown Completed [facility] Influenza Virus Vaccine Unknown Completed [facility] Influenza Virus Vaccine Quad .5 mL IM 6+ MO (FLUZONE/FLULAVAL/F LUARIX) Unknown Completed [facility] Influenza Virus Vaccine Quad .5 mL IM 6+ MO (FLUZONE/FLULAVAL/F LUARIX) Unknown Completed [facility] TDAP (ADACEL) VACCINE Unknown Completed [facility] Influenza Virus Vaccine Recomb Quad IM, Preserv and ABX Free 18-64 YRS Unknown Completed [facility] Influenza Virus Vaccine Unknown Completed [facility] Influenza Virus Vaccine Unknown Completed [facility] Influenza Virus Vaccine Quad .5 mL IM 6+ MO (FLUZONE/FLULAVAL/F LUARIX) Unknown Completed [facility] Influenza Virus Vaccine Quad .5 mL IM 6+ MO (FLUZONE/FLULAVAL/F LUARIX) Unknown Completed [facility] TDAP (ADACEL) VACCINE Unknown Completed [facility] Influenza Virus Vaccine Recomb Quad IM, Preserv and ABX Free 18-64 YRS Unknown Completed [facility] Influenza Virus Vaccine Unknown Completed [facility] Influenza Virus Vaccine Unknown Completed [facility] Influenza Virus Vaccine Quad .5 mL IM 6+ MO (FLUZONE/FLULAVAL/F LUARIX) Unknown Completed [facility] Influenza Virus Vaccine Quad .5 mL IM 6+ MO (FLUZONE/FLULAVAL/F LUARIX) Unknown Completed [facility] TDAP (ADACEL) VACCINE Unknown Completed [facility] Influenza Virus Vaccine Recomb Quad IM, Preserv and ABX Free 18-64 YRS Unknown Completed [facility] Influenza Virus Vaccine Unknown Completed [facility] Influenza Virus Vaccine Unknown Completed [facility] Influenza Virus Vaccine Quad .5 mL IM 6+ MO (FLUZONE/FLULAVAL/F LUARIX) Unknown Completed [facility] Influenza Virus Vaccine Quad .5 mL IM 6+ MO (FLUZONE/FLULAVAL/F LUARIX) Unknown Completed [facility] TDAP (ADACEL) VACCINE Unknown Completed [facility] Influenza Virus Vaccine Recomb Quad IM, Preserv and ABX Free 18-64 YRS Unknown Completed [facility] Influenza Virus Vaccine Unknown Completed [facility] Influenza Virus Vaccine Unknown Completed [facility] Influenza Virus Vaccine Quad .5 mL IM 6+ MO (FLUZONE/FLULAVAL/F LUARIX) Unknown Completed [facility] Influenza Virus Vaccine Quad .5 mL IM 6+ MO (FLUZONE/FLULAVAL/F LUARIX) Unknown Completed [facility] TDAP (ADACEL) VACCINE Unknown Completed [facility] Influenza Virus Vaccine Recomb Quad IM, Preserv and ABX Free 18-64 YRS Unknown Completed [facility] Influenza Virus Vaccine Unknown Completed [facility] Influenza Virus Vaccine Unknown Completed [facility] Influenza Virus Vaccine Quad .5 mL IM 6+ MO (FLUZONE/FLULAVAL/F LUARIX) Unknown Completed [facility] Influenza Virus Vaccine Quad .5 mL IM 6+ MO (FLUZONE/FLULAVAL/F LUARIX) Unknown Completed [facility] TDAP (ADACEL) VACCINE Unknown Completed [facility] Influenza Virus Vaccine Recomb Quad IM, Preserv and ABX Free 18-64 YRS Unknown Completed [facility] Influenza Virus Vaccine Unknown Completed [facility] Influenza Virus Vaccine Unknown Completed [facility] Influenza Virus Vaccine Quad .5 mL IM 6+ MO (FLUZONE/FLULAVAL/F LUARIX) Unknown Completed [facility] Influenza Virus Vaccine Quad .5 mL IM 6+ MO (FLUZONE/FLULAVAL/F LUARIX) Unknown Completed [facility] TDAP (ADACEL) VACCINE Unknown Completed [facility] Influenza Virus Vaccine Recomb Quad IM, Preserv and ABX Free 18-64 YRS Unknown Completed [facility] Influenza Virus Vaccine Unknown Completed [facility] Influenza Virus Vaccine Unknown Completed [facility] Influenza Virus Vaccine Quad .5 mL IM 6+ MO (FLUZONE/FLULAVAL/F LUARIX) Unknown Completed [facility] Influenza Virus Vaccine Quad .5 mL IM 6+ MO (FLUZONE/FLULAVAL/F LUARIX) Unknown Completed [facility] TDAP (ADACEL) VACCINE Unknown Completed [facility] Influenza Virus Vaccine Recomb Quad IM, Preserv and ABX Free 18-64 YRS Unknown Completed [facility] Influenza Virus Vaccine Unknown Completed [facility] Influenza Virus Vaccine Unknown Completed [facility] Influenza Virus Vaccine Quad .5 mL IM 6+ MO (FLUZONE/FLULAVAL/F LUARIX) Unknown Completed [facility] Influenza Virus Vaccine Quad .5 mL IM 6+ MO (FLUZONE/FLULAVAL/F LUARIX) Unknown Completed [facility] TDAP (ADACEL) VACCINE Unknown Completed [facility] Influenza Virus Vaccine Recomb Quad IM, Preserv and ABX Free 18-64 YRS Unknown Completed [facility] Influenza Virus Vaccine Unknown Completed [facility] Influenza Virus Vaccine Unknown Completed [facility] Influenza Virus Vaccine Quad .5 mL IM 6+ MO (FLUZONE/FLULAVAL/F LUARIX) Unknown Completed [facility] Influenza Virus Vaccine Quad .5 mL IM 6+ MO (FLUZONE/FLULAVAL/F LUARIX) Unknown Completed [facility] TDAP (ADACEL) VACCINE Unknown Completed [facility] Influenza Virus Vaccine Recomb Quad IM, Preserv and ABX Free 18-64 YRS Unknown Completed [facility] Influenza Virus Vaccine Unknown Completed [facility] Influenza Virus Vaccine Unknown Completed [facility] Influenza Virus Vaccine Quad .5 mL IM 6+ MO (FLUZONE/FLULAVAL/F LUARIX) Unknown Completed [facility] Influenza Virus Vaccine Quad .5 mL IM 6+ MO (FLUZONE/FLULAVAL/F LUARIX) Unknown Completed [facility] TDAP (ADACEL) VACCINE Unknown Completed [facility] Influenza Virus Vaccine Recomb Quad IM, Preserv and ABX Free 18-64 YRS Unknown Completed [facility] Influenza Virus Vaccine Unknown Completed [facility] Influenza Virus Vaccine Unknown Completed [facility] Influenza Virus Vaccine Quad .5 mL IM 6+ MO (FLUZONE/FLULAVAL/F LUARIX) Unknown Completed [facility] Influenza Virus Vaccine Quad .5 mL IM 6+ MO (FLUZONE/FLULAVAL/F LUARIX) Unknown Completed [facility] TDAP (ADACEL) VACCINE Unknown Completed [facility] Influenza Virus Vaccine Recomb Quad IM, Preserv and ABX Free 18-64 YRS Unknown Completed [facility] Influenza Virus Vaccine Unknown Completed [facility] Influenza Virus Vaccine Unknown Completed [facility] Influenza Virus Vaccine Quad .5 mL IM 6+ MO (FLUZONE/FLULAVAL/F LUARIX) Unknown Completed [facility] Influenza Virus Vaccine Quad .5 mL IM 6+ MO (FLUZONE/FLULAVAL/F LUARIX) Unknown Completed [facility] TDAP (ADACEL) VACCINE Unknown Completed [facility] Influenza Virus Vaccine Recomb Quad IM, Preserv and ABX Free 18-64 YRS Unknown Completed [facility] Influenza Virus Vaccine Unknown Completed [facility] Influenza Virus Vaccine Unknown Completed [facility] Influenza Virus Vaccine Quad .5 mL IM 6+ MO (FLUZONE/FLULAVAL/F LUARIX) Unknown Completed [facility] Influenza Virus Vaccine Quad .5 mL IM 6+ MO (FLUZONE/FLULAVAL/F LUARIX) Unknown Completed [facility] TDAP (ADACEL) VACCINE Unknown Completed [facility] Influenza Virus Vaccine Recomb Quad IM, Preserv and ABX Free 18-64 YRS Unknown Completed [facility] Influenza Virus Vaccine Unknown Completed [facility] Influenza Virus Vaccine Unknown Completed [facility] Influenza Virus Vaccine Quad .5 mL IM 6+ MO (FLUZONE/FLULAVAL/F LUARIX) Unknown Completed [facility] Influenza Virus Vaccine Quad .5 mL IM 6+ MO (FLUZONE/FLULAVAL/F LUARIX) Unknown Completed [facility] TDAP (ADACEL) VACCINE Unknown Completed [facility] Influenza Virus Vaccine Recomb Quad IM, Preserv and ABX Free 18-64 YRS Unknown Completed [facility] Influenza Virus Vaccine Unknown Completed [facility] Influenza Virus Vaccine Unknown Completed [facility] Influenza Virus Vaccine Quad .5 mL IM 6+ MO (FLUZONE/FLULAVAL/F LUARIX) Unknown Completed [facility] Influenza Virus Vaccine Quad .5 mL IM 6+ MO (FLUZONE/FLULAVAL/F LUARIX) Unknown Completed [facility] TDAP (ADACEL) VACCINE Unknown Completed [facility] Influenza Virus Vaccine Recomb Quad IM, Preserv and ABX Free 18-64 YRS Unknown Completed [facility] Influenza Virus Vaccine Unknown Completed [facility] Influenza Virus Vaccine Quad .5 mL IM 6+ MO (FLUZONE/FLULAVAL/F LUARIX) Unknown Completed [facility] TDAP (ADACEL) VACCINE Unknown Completed [facility] Influenza Virus Vaccine Recomb Quad IM, Preserv and ABX Free 18-64 YRS Unknown Completed [facility] Influenza Virus Vaccine Unknown Completed [facility] Influenza Virus Vaccine Quad .5 mL IM 6+ MO (FLUZONE/FLULAVAL/F LUARIX) Unknown Completed [facility] TDAP (ADACEL) VACCINE Unknown Completed [facility] Influenza Virus Vaccine Recomb Quad IM, Preserv and ABX Free 18-64 YRS Unknown Completed [facility] Influenza Virus Vaccine Unknown Completed [facility] Influenza Virus Vaccine Quad .5 mL IM 6+ MO (FLUZONE/FLULAVAL/F LUARIX) Unknown Completed [facility] TDAP (ADACEL) VACCINE Unknown Completed [facility] Influenza Virus Vaccine Recomb Quad IM, Preserv and ABX Free 18-64 YRS Unknown Completed [facility] Influenza Virus Vaccine Unknown Completed [facility] Influenza Virus Vaccine Quad .5 mL IM 6+ MO (FLUZONE/FLULAVAL/F LUARIX) Unknown Completed [facility] TDAP (ADACEL) VACCINE Unknown Completed [facility] Influenza Virus Vaccine Recomb Quad IM, Preserv and ABX Free 18-64 YRS Unknown Completed [facility] Influenza Virus Vaccine Unknown Completed [facility] Influenza Virus Vaccine Quad .5 mL IM 6+ MO (FLUZONE/FLULAVAL/F LUARIX) Unknown Completed [facility] TDAP (ADACEL) VACCINE Unknown Completed [facility] Influenza Virus Vaccine Recomb Quad IM, Preserv and ABX Free 18-64 YRS Unknown Completed [facility] Influenza Virus Vaccine Unknown Completed [facility] Influenza Virus Vaccine Quad .5 mL IM 6+ MO (FLUZONE/FLULAVAL/F LUARIX) Unknown Completed [facility] TDAP (ADACEL) VACCINE Unknown Completed [facility] Influenza Virus Vaccine Recomb Quad IM, Preserv and ABX Free 18-64 YRS Unknown Completed [facility] Influenza Virus Vaccine Unknown Completed [facility] Influenza Virus Vaccine Quad .5 mL IM 6+ MO (FLUZONE/FLULAVAL/F LUARIX) Unknown Completed [facility] TDAP (ADACEL) VACCINE Unknown Completed [facility] Influenza Virus Vaccine Recomb Quad IM, Preserv and ABX Free 18-64 YRS Unknown Completed [facility] Influenza Virus Vaccine Unknown Completed [facility] Influenza Virus Vaccine Quad .5 mL IM 6+ MO (FLUZONE/FLULAVAL/F LUARIX) Unknown Completed [facility] TDAP (ADACEL) VACCINE Unknown Completed [facility] Influenza Virus Vaccine Recomb Quad IM, Preserv and ABX Free 18-64 YRS Unknown Completed [facility] Influenza Virus Vaccine Unknown Completed [facility] Influenza Virus Vaccine Quad .5 mL IM 6+ MO (FLUZONE/FLULAVAL/F LUARIX) Unknown Completed [facility] TDAP (ADACEL) VACCINE Unknown Completed [facility] Influenza Virus Vaccine Recomb Quad IM, Preserv and ABX Free 18-64 YRS Unknown Completed [facility] Influenza Virus Vaccine Unknown Completed [facility] Influenza Virus Vaccine Quad .5 mL IM 6+ MO (FLUZONE/FLULAVAL/F LUARIX) Unknown Completed [facility] TDAP (ADACEL) VACCINE Unknown Completed [facility] Influenza Virus Vaccine Recomb Quad IM, Preserv and ABX Free 18-64 YRS Unknown Completed [facility] Influenza Virus Vaccine Unknown Completed [facility] Influenza Virus Vaccine Quad .5 mL IM 6+ MO (FLUZONE/FLULAVAL/F LUARIX) Unknown Completed [facility] TDAP (ADACEL) VACCINE Unknown Completed [facility] Influenza Virus Vaccine Recomb Quad IM, Preserv and ABX Free 18-64 YRS Unknown Completed [facility] Influenza Virus Vaccine Unknown Completed [facility] Influenza Virus Vaccine Quad .5 mL IM 6+ MO (FLUZONE/FLULAVAL/F LUARIX) Unknown Completed [facility] TDAP (ADACEL) VACCINE Unknown Completed [facility] Influenza Virus Vaccine Recomb Quad IM, Preserv and ABX Free 18-64 YRS Unknown Completed [facility] Influenza Virus Vaccine Unknown Completed [facility] Influenza Virus Vaccine Quad .5 mL IM 6+ MO (FLUZONE/FLULAVAL/F LUARIX) Unknown Completed [facility] TDAP (ADACEL) VACCINE Unknown Completed [facility] Influenza Virus Vaccine Recomb Quad IM, Preserv and ABX Free 18-64 YRS Unknown Completed [facility] Influenza Virus Vaccine Unknown Completed [facility] Influenza Virus Vaccine Quad .5 mL IM 6+ MO (FLUZONE/FLULAVAL/F LUARIX) Unknown Completed [facility] TDAP (ADACEL) VACCINE Unknown Completed [facility] Influenza Virus Vaccine Recomb Quad IM, Preserv and ABX Free 18-64 YRS Unknown Completed [facility] Influenza Virus Vaccine Unknown Completed [facility] Influenza Virus Vaccine Quad .5 mL IM 6+ MO (FLUZONE/FLULAVAL/F LUARIX) Unknown Completed [facility] TDAP (ADACEL) VACCINE Unknown Completed [facility] Influenza Virus Vaccine Recomb Quad IM, Preserv and ABX Free 18-64 YRS Unknown Completed [facility] Influenza Virus Vaccine Unknown Completed [facility] Influenza Virus Vaccine Quad .5 mL IM 6+ MO (FLUZONE/FLULAVAL/F LUARIX) Unknown Completed [facility] TDAP (ADACEL) VACCINE Unknown Completed [facility] Influenza Virus Vaccine Recomb Quad IM, Preserv and ABX Free 18-64 YRS Unknown Completed [facility] Influenza Virus Vaccine Unknown Completed [facility] Influenza Virus Vaccine Quad .5 mL IM 6+ MO (FLUZONE/FLULAVAL/F LUARIX) Unknown Completed [facility] TDAP (ADACEL) VACCINE Unknown Completed [facility] Influenza Virus Vaccine Recomb Quad IM, Preserv and ABX Free 18-64 YRS Unknown Completed [facility] Influenza Virus Vaccine Unknown Completed [facility] Influenza Virus Vaccine Quad .5 mL IM 6+ MO (FLUZONE/FLULAVAL/F LUARIX) Unknown Completed [facility] TDAP (ADACEL) VACCINE Unknown Completed [facility] Influenza Virus Vaccine Recomb Quad IM, Preserv and ABX Free 18-64 YRS Unknown Completed [facility] Influenza Virus Vaccine Unknown Completed [facility] Influenza Virus Vaccine Quad .5 mL IM 6+ MO (FLUZONE/FLULAVAL/F LUARIX) Unknown Completed [facility] TDAP (ADACEL) VACCINE Unknown Completed [facility] Influenza Virus Vaccine Recomb Quad IM, Preserv and ABX Free 18-64 YRS Unknown Completed [facility] Influenza Virus Vaccine Unknown Completed [facility] Influenza Virus Vaccine Quad .5 mL IM 6+ MO (FLUZONE/FLULAVAL/F LUARIX) Unknown Completed [facility] TDAP (ADACEL) VACCINE Unknown Completed [facility] Influenza Virus Vaccine Recomb Quad IM, Preserv and ABX Free 18-64 YRS Unknown Completed [facility] Influenza Virus Vaccine Unknown Completed [facility] Influenza Virus Vaccine Quad .5 mL IM 6+ MO (FLUZONE/FLULAVAL/F LUARIX) Unknown Completed [facility] TDAP (ADACEL) VACCINE Unknown Completed [facility] Influenza Virus Vaccine Recomb Quad IM, Preserv and ABX Free 18-64 YRS Unknown Completed [facility] Influenza Virus Vaccine Unknown Completed [facility] Influenza Virus Vaccine Quad .5 mL IM 6+ MO (FLUZONE/FLULAVAL/F LUARIX) Unknown Completed [facility] TDAP (ADACEL) VACCINE Unknown Completed [facility] Influenza Virus Vaccine Recomb Quad IM, Preserv and ABX Free 18-64 YRS Unknown Completed [facility] Influenza Virus Vaccine Unknown Completed [facility] Influenza Virus Vaccine Quad .5 mL IM 6+ MO (FLUZONE/FLULAVAL/F LUARIX) Unknown Completed [facility] TDAP (ADACEL) VACCINE Unknown Completed [facility] Influenza Virus Vaccine Recomb Quad IM, Preserv and ABX Free 18-64 YRS Unknown Completed [facility] Influenza Virus Vaccine Unknown Completed [facility] Influenza Virus Vaccine Quad .5 mL IM 6+ MO (FLUZONE/FLULAVAL/F LUARIX) Unknown Completed [facility] TDAP (ADACEL) VACCINE Unknown Completed [facility] Influenza Virus Vaccine Recomb Quad IM, Preserv and ABX Free 18-64 YRS Unknown Completed [facility] Influenza Virus Vaccine Unknown Completed [facility] Influenza Virus Vaccine Quad .5 mL IM 6+ MO (FLUZONE/FLULAVAL/F LUARIX) Unknown Completed [facility] TDAP (ADACEL) VACCINE Unknown Completed [facility] Influenza Virus Vaccine Recomb Quad IM, Preserv and ABX Free 18-64 YRS Unknown Completed [facility] Influenza Virus Vaccine Unknown Completed [facility] Influenza Virus Vaccine Quad .5 mL IM 6+ MO (FLUZONE/FLULAVAL/F LUARIX) Unknown Completed [facility] TDAP (ADACEL) VACCINE Unknown Completed [facility] Influenza Virus Vaccine Recomb Quad IM, Preserv and ABX Free 18-64 YRS Unknown Completed [facility] Influenza Virus Vaccine Unknown Completed [facility] Influenza Virus Vaccine Quad .5 mL IM 6+ MO (FLUZONE/FLULAVAL/F LUARIX) Unknown Completed [facility] TDAP (ADACEL) VACCINE Unknown Completed [facility] Influenza Virus Vaccine Recomb Quad IM, Preserv and ABX Free 18-64 YRS Unknown Completed [facility] Influenza Virus Vaccine Unknown Completed [facility] Influenza Virus Vaccine Quad .5 mL IM 6+ MO (FLUZONE/FLULAVAL/F LUARIX) Unknown Completed [facility] TDAP (ADACEL) VACCINE Unknown Completed [facility] Influenza Virus Vaccine Recomb Quad IM, Preserv and ABX Free 18-64 YRS Unknown Completed [facility] Influenza Virus Vaccine Unknown Completed [facility] Influenza Virus Vaccine Quad .5 mL IM 6+ MO (FLUZONE/FLULAVAL/F LUARIX) Unknown Completed [facility] TDAP (ADACEL) VACCINE Unknown Completed [facility] Influenza Virus Vaccine Recomb Quad IM, Preserv and ABX Free 18-64 YRS Unknown Completed [facility] Influenza Virus Vaccine Unknown Completed [facility] Influenza Virus Vaccine Quad .5 mL IM 6+ MO (FLUZONE/FLULAVAL/F LUARIX) Unknown Completed [facility] TDAP (ADACEL) VACCINE Unknown Completed [facility] Influenza Virus Vaccine Recomb Quad IM, Preserv and ABX Free 18-64 YRS Unknown Completed [facility] Influenza Virus Vaccine Unknown Completed [facility] Influenza Virus Vaccine Quad .5 mL IM 6+ MO (FLUZONE/FLULAVAL/F LUARIX) Unknown Completed [facility] TDAP (ADACEL) VACCINE Unknown Completed [facility] Influenza Virus Vaccine Recomb Quad IM, Preserv and ABX Free 18-64 YRS Unknown Completed [facility] Influenza Virus Vaccine Unknown Completed [facility] Influenza Virus Vaccine Quad .5 mL IM 6+ MO (FLUZONE/FLULAVAL/F LUARIX) Unknown Completed [facility] TDAP (ADACEL) VACCINE Unknown Completed [facility] Influenza Virus Vaccine Recomb Quad IM, Preserv and ABX Free 18-64 YRS Unknown Completed [facility] Influenza Virus Vaccine Unknown Completed [facility] Influenza Virus Vaccine Quad .5 mL IM 6+ MO (FLUZONE/FLULAVAL/F LUARIX) Unknown Completed [facility] TDAP (ADACEL) VACCINE Unknown Completed [facility] Influenza Virus Vaccine Recomb Quad IM, Preserv and ABX Free 18-64 YRS Unknown Completed [facility] Influenza Virus Vaccine Unknown Completed [facility] Influenza Virus Vaccine Quad .5 mL IM 6+ MO (FLUZONE/FLULAVAL/F LUARIX) Unknown Completed [facility] TDAP (ADACEL) VACCINE Unknown Completed [facility] Influenza Virus Vaccine Recomb Quad IM, Preserv and ABX Free 18-64 YRS Unknown Completed [facility] Influenza Virus Vaccine Unknown Completed [facility] Influenza Virus Vaccine Quad .5 mL IM 6+ MO (FLUZONE/FLULAVAL/F LUARIX) Unknown Completed [facility] TDAP (ADACEL) VACCINE Unknown Completed [facility] Influenza Virus Vaccine Recomb Quad IM, Preserv and ABX Free 18-64 YRS Unknown Completed [facility] Influenza Virus Vaccine Unknown Completed [facility] Influenza Virus Vaccine Quad .5 mL IM 6+ MO (FLUZONE/FLULAVAL/F LUARIX) Unknown Completed [facility] TDAP (ADACEL) VACCINE Unknown Completed [facility] Influenza Virus Vaccine Quad .5 mL IM 6+ MO (FLUZONE/FLULAVAL/F LUARIX) Unknown Completed [facility] TDAP (ADACEL) VACCINE Unknown Completed [facility] Influenza Virus Vaccine Quad .5 mL IM 6+ MO (FLUZONE/FLULAVAL/F LUARIX) Unknown Completed [facility] TDAP (ADACEL) VACCINE Unknown Completed [facility] Influenza Virus Vaccine Quad .5 mL IM 6+ MO (FLUZONE/FLULAVAL/F LUARIX) Unknown Completed [facility] TDAP (ADACEL) VACCINE Unknown Completed [facility] Influenza Virus Vaccine Quad .5 mL IM 6+ MO (FLUZONE/FLULAVAL/F LUARIX) Unknown Completed [facility] TDAP (ADACEL) VACCINE Unknown Completed [facility] Influenza Virus Vaccine Quad .5 mL IM 6+ MO (FLUZONE/FLULAVAL/F LUARIX) Unknown Completed [facility] TDAP (ADACEL) VACCINE Unknown Completed [facility] Influenza Virus Vaccine Quad .5 mL IM 6+ MO (FLUZONE/FLULAVAL/F LUARIX) Unknown Completed [facility] TDAP (ADACEL) VACCINE Unknown Completed [facility] Influenza Virus Vaccine Quad .5 mL IM 6+ MO (FLUZONE/FLULAVAL/F LUARIX) Unknown Completed [facility] TDAP (ADACEL) VACCINE Unknown Completed [facility] Influenza Virus Vaccine Quad .5 mL IM 6+ MO (FLUZONE/FLULAVAL/F LUARIX) Unknown Completed [facility] TDAP (ADACEL) VACCINE Unknown Completed [facility] Influenza Virus Vaccine Quad .5 mL IM 6+ MO (FLUZONE/FLULAVAL/F LUARIX) Unknown Completed [facility] TDAP (ADACEL) VACCINE Unknown Completed [facility] Influenza Virus Vaccine Recomb Quad IM, Preserv and ABX Free 18-64 YRS Unknown Completed [facility] Influenza Virus Vaccine Unknown Completed [facility] Influenza Virus Vaccine Unknown Completed [facility] Influenza Virus Vaccine Quad IM, Preserv and ABX Free 6 MO-64 YRS (FLUCELVAX) Unknown Completed [facility] Influenza Virus Vaccine Quad .5 mL IM 6+ MO (FLUZONE/FLULAVAL/F LUARIX) Unknown Completed [facility] Influenza Virus Vaccine Quad .5 mL IM 6+ MO (FLUZONE/FLULAVAL/F LUARIX) Unknown Completed [facility] Influenza Virus Vaccine Quad .5 mL IM 6+ MO (FLUZONE/FLULAVAL/F LUARIX) Unknown Completed [facility] TDAP (ADACEL) VACCINE Unknown Completed [facility] Influenza Virus Vaccine Recomb Quad IM, Preserv and ABX Free 18-64 YRS Unknown Completed [facility] Influenza Virus Vaccine Unknown Completed [facility] Influenza Virus Vaccine Unknown Completed [facility] Influenza Virus Vaccine Quad IM, Preserv and ABX Free 6 MO-64 YRS (FLUCELVAX) Unknown Completed [facility] Influenza Virus Vaccine Quad .5 mL IM 6+ MO (FLUZONE/FLULAVAL/F LUARIX) Unknown Completed [facility] Influenza Virus Vaccine Quad .5 mL IM 6+ MO (FLUZONE/FLULAVAL/F LUARIX) Unknown Completed [facility] Influenza Virus Vaccine Quad .5 mL IM 6+ MO (FLUZONE/FLULAVAL/F LUARIX) Unknown Completed [facility] TDAP (ADACEL) VACCINE Unknown Completed [facility] Influenza Virus Vaccine Recomb Quad IM, Preserv and ABX Free 18-64 YRS Unknown Completed [facility] Influenza Virus Vaccine Unknown Completed [facility] Influenza Virus Vaccine Unknown Completed [facility] Influenza Virus Vaccine Quad IM, Preserv and ABX Free 6 MO-64 YRS (FLUCELVAX) Unknown Completed [facility] Influenza Virus Vaccine Quad .5 mL IM 6+ MO (FLUZONE/FLULAVAL/F LUARIX) Unknown Completed [facility] Influenza Virus Vaccine Quad .5 mL IM 6+ MO (FLUZONE/FLULAVAL/F LUARIX) Unknown Completed [facility] Vital Signs Vital Name Observation Time Observation Value Comments S ource Systolic blood pressure 2023-05-19 17:24:00 129 mm[Hg] [facility] Diastolic blood pressure 2023-05-19 17:24:00 83 mm[Hg] [facility] Heart rate 2023-05-19 17:24:00 77 /min [facility] Respiratory rate 2023-05-19 17:24:00 15 /min [facility] Oxygen saturation in Arterial blood by Pulse oximetry 2023-05-19 17:24:00 100 /min [facility] Body temperature 2023-05-19 14:50:00 37.28 Irene [facility] Body height 2023-05-19 14:50:00 154.9 cm [facility] Body weight 2023-05-19 14:50:00 58.968 kg [facility] BMI 2023-05-19 14:50:00 24.56 kg/m2 [facility] Systolic blood pressure 2023-01-15 16:56:00 132 mm[Hg] [facility] Diastolic blood pressure 2023-01-15 16:56:00 91 mm[Hg] [facility] Heart rate 2023-01-15 16:56:00 67 /min [facility] Body temperature 2023-01-15 16:56:00 36.78 Irene [facility] Respiratory rate 2023-01-15 16:56:00 20 /min [facility] Oxygen saturation in Arterial blood by Pulse oximetry 2023-01-15 16:56:00 100 /min [facility] Body height 2023-01-12 09:05:00 154.9 cm [facility] Body weight 2023-01-12 09:05:00 58.968 kg [facility] BMI 2023-01-12 09:05:00 24.56 kg/m2 [facility] Systolic blood pressure 2022-11-21 21:40:00 122 mm[Hg] [facility] Diastolic blood pressure 2022-11-21 21:40:00 90 mm[Hg] [facility] Heart rate 2022-11-21 21:40:00 92 /min [facility] Respiratory rate 2022-11-21 21:40:00 16 /min [facility] Oxygen saturation in Arterial blood by Pulse oximetry 2022-11-21 21:40:00 99 /min [facility] Body temperature 2022-11-21 18:07:[address] [facility] Body weight 2022-11-21 18:07:00 68.04 kg [facility] BMI 2022-11-21 18:07:00 28.34 kg/m2 [facility] Systolic blood pressure 2022-09-05 17:22:00 139 mm[Hg] [facility] Diastolic blood pressure 2022-09-05 17:22:00 91 mm[Hg] [facility] Heart rate 2022-09-05 17:22:00 120 /min [facility] Respiratory rate 2022-09-05 17:22:00 18 /min [facility] Oxygen saturation in Arterial blood by Pulse oximetry 2022-09-05 17:22:00 99 /min [facility] Body temperature 2022-09-05 13:43:[address] [facility] Body weight 2022-09-05 13:43:00 68.04 kg [facility] BMI 2022-09-05 13:43:00 28.34 kg/m2 [facility] Systolic blood pressure 2022-08-01 00:49:00 138 mm[Hg] [facility] Diastolic blood pressure 2022-08-01 00:49:00 104 mm[Hg] [facility] Heart rate 2022-08-01 00:49:00 108 /min [facility] Respiratory rate 2022-08-01 00:49:00 18 /min [facility] Oxygen saturation in Arterial blood by Pulse oximetry 2022-08-01 00:49:00 99 /min [facility] Body temperature 2022-07-31 22:52:[address] [facility] Body height 2022-07-31 22:52:00 154.9 cm [facility] 2022-07-31 22:52:00 68.04 kg [facility] BMI 2022-07-31 22:52:00 28.34 kg/m2 [facility] Systolic blood pressure 2022-07-15 15:32:00 130 mm[Hg] [facility] Diastolic blood pressure 2022-07-15 15:32:00 90 mm[Hg] [facility] Heart rate 2022-07-15 15:31:00 81 /min [facility] Body temperature 2022-07-15 15:31:00 36.94 Irene [facility] Respiratory rate 2022-07-15 15:31:00 16 /min [facility] Body weight 2022-07-15 15:31:00 68.493 kg [facility] BMI 2022-07-15 15:31:00 28.53 kg/m2 [facility] Oxygen saturation in Arterial blood by Pulse oximetry 2022-07-15 15:31:00 99 /min [facility] Systolic blood pressure 2022-06-23 15:26:00 111 mm[Hg] [facility] Diastolic blood pressure 2022-06-23 15:26:00 75 mm[Hg] [facility] Heart rate 2022-06-23 15:26:00 108 /min [facility] Body temperature 2022-06-23 15:26:00 36.83 Irene [facility] Respiratory rate 2022-06-23 15:26:00 18 /min [facility] Body height 2022-06-23 15:26:00 154.9 cm [facility] 2022-06-23 15:26:00 71.385 kg [facility] BMI 2022-06-23 15:26:00 29.74 kg/m2 [facility] Oxygen saturation in Arterial blood by Pulse oximetry 2022-06-23 15:26:00 99 /min [facility] Systolic blood pressure 2022-05-05 22:05:00 126 mm[Hg] [facility] Diastolic blood pressure 2022-05-05 22:05:00 75 mm[Hg] [facility] Heart rate 2022-05-05 22:05:00 99 /min [facility] Respiratory rate 2022-05-05 22:05:00 16 /min [facility] Oxygen saturation in Arterial blood by Pulse oximetry 2022-05-05 22:05:00 99 /min [facility] Body temperature 2022-05-05 18:24:00 37.11 Irene [facility] Body height 2022-05-05 18:24:00 154.9 cm [facility] Body weight 2022-05-05 18:24:00 54.432 kg [facility] BMI 2022-05-05 18:24:00 22.67 kg/m2 [facility] Systolic blood pressure 2022-04-26 14:28:00 135 mm[Hg] [facility] Diastolic blood pressure 2022-04-26 14:28:00 95 mm[Hg] [facility] Heart rate 2022-04-26 14:28:00 93 /min [facility] Body temperature 2022-04-26 14:28:00 36.89 Irene [facility] Respiratory rate 2022-04-26 14:28:00 18 /min [facility] Body height 2022-04-26 14:28:00 154.9 cm [facility] Body weight 2022-04-26 14:28:00 54.432 kg [facility] BMI 2022-04-26 14:28:00 22.67 kg/m2 [facility] Oxygen saturation in Arterial blood by Pulse oximetry 2022-04-26 14:28:00 100 /min [facility] Systolic blood pressure 2022-04-26 00:21:00 151 mm[Hg] [facility] Diastolic blood pressure 2022-04-26 00:21:00 98 mm[Hg] [facility] Heart rate 2022-04-26 00:21:00 98 /min [facility] Body temperature 2022-04-26 00:21:00 36.72 Irene [facility] Respiratory rate 2022-04-26 00:21:00 18 /min [facility] Body height 2022-04-26 00:21:00 154.9 cm [facility] Body weight 2022-04-26 00:21:00 54.432 kg [facility] BMI 2022-04-26 00:21:00 22.67 kg/m2 [facility] Oxygen saturation in Arterial blood by Pulse oximetry 2022-04-26 00:21:00 100 /min [facility] Systolic blood pressure 2022-04-09 14:39:00 122 mm[Hg] [facility] Diastolic blood pressure 2022-04-09 14:39:00 84 mm[Hg] [facility] Heart rate 2022-04-09 14:39:00 96 /min [facility] Body height 2022-04-09 14:39:00 154.9 cm [facility] Body weight 2022-04-09 14:39:00 60.328 kg [facility] BMI 2022-04-09 14:39:00 25.13 kg/m2 [facility] Oxygen saturation in Arterial blood by Pulse oximetry 2022-04-09 14:39:00 98 /min [facility] Systolic blood pressure 2022-04-07 22:43:36 131 mm[Hg] [facility] Diastolic blood pressure 2022-04-07 22:43:36 83 mm[Hg] [facility] Heart rate 2022-04-07 22:43:36 113 /min [facility] Respiratory rate 2022-04-07 22:43:36 18 /min [facility] Oxygen saturation in Arterial blood by Pulse oximetry 2022-04-07 22:43:36 97 /min [facility] Body temperature 2022-04-07 19:41:00 37.17 Irene [facility] Body height 2022-04-07 19:41:00 154.9 cm [facility] Body weight 2022-04-07 19:41:00 60.328 kg [facility] BMI 2022-04-07 19:41:00 25.13 kg/m2 [facility] Systolic blood pressure 2022-03-24 19:00:00 125 mm[Hg] [facility] Diastolic blood pressure 2022-03-24 19:00:00 86 mm[Hg] [facility] Heart rate 2022-03-24 19:00:00 93 /min [facility] Respiratory rate 2022-03-24 19:00:00 17 /min [facility] Oxygen saturation in Arterial blood by Pulse oximetry 2022-03-24 19:00:00 97 /min [facility] Body temperature 2022-03-24 13:33:00 36.78 Irene [facility] Systolic blood pressure 2022-03-15 19:23:00 128 mm[Hg] [facility] Diastolic blood pressure 2022-03-15 19:23:00 89 mm[Hg] [facility] Heart rate 2022-03-15 19:23:00 104 /min [facility] Body weight 2022-03-15 19:23:00 60.328 kg [facility] BMI 2022-03-15 19:23:00 25.13 kg/m2 [facility] Oxygen saturation in Arterial blood by Pulse oximetry 2022-03-15 19:23:00 98 /min [facility] Systolic blood pressure 2022-03-15 15:02:00 115 mm[Hg] [facility] Diastolic blood pressure 2022-03-15 15:02:00 70 mm[Hg] [facility] Heart rate 2022-03-15 15:02:00 85 /min [facility] Respiratory rate 2022-03-15 15:02:00 20 /min [facility] Oxygen saturation in Arterial blood by Pulse oximetry 2022-03-15 15:02:00 99 /min [facility] Body temperature 2022-03-15 13:38:00 36.94 Irene [facility] Body height 2022-03-15 13:38:00 154.9 cm [facility] Body weight 2022-03-15 13:38:00 54.432 kg [facility] BMI 2022-03-15 13:38:00 22.67 kg/m2 [facility] Systolic blood pressure 2022-03-11 16:30:00 124 mm[Hg] [facility] Diastolic blood pressure 2022-03-11 16:30:00 88 mm[Hg] [facility] Heart rate 2022-03-11 16:30:00 93 /min [facility] Body temperature 2022-03-11 16:30:00 36.67 Irene [facility] Respiratory rate 2022-03-11 16:30:00 14 /min [facility] Oxygen saturation in Arterial blood by Pulse oximetry 2022-03-11 16:30:00 100 /min [facility] Body height 2022-03-11 14:19:00 154.9 cm [facility] Body weight 2022-03-11 14:19:00 58.968 kg [facility] BMI 2022-03-11 14:19:00 24.56 kg/m2 [facility] Systolic blood pressure 2022-02-27 14:14:00 140 mm[Hg] [facility] Diastolic blood pressure 2022-02-27 14:14:00 90 mm[Hg] [facility] Heart rate 2022-02-27 14:14:00 103 /min [facility] Body height 2022-02-27 14:14:00 154.9 cm [facility] Body weight 2022-02-27 14:14:00 59.194 kg [facility] BMI 2022-02-27 14:14:00 24.66 kg/m2 [facility] Oxygen saturation in Arterial blood by Pulse oximetry 2022-02-27 14:14:00 100 /min [facility] Systolic blood pressure 2022-02-27 13:19:00 131 mm[Hg] [facility] Diastolic blood pressure 2022-02-27 13:19:00 86 mm[Hg] [facility] Heart rate 2022-02-27 13:19:00 102 /min [facility] Body temperature 2022-02-27 13:19:00 36.33 Irene [facility] Body height 2022-02-27 13:19:00 154.9 cm [facility] Body weight 2022-02-27 13:19:00 58.968 kg [facility] BMI 2022-02-27 13:19:00 24.56 kg/m2 [facility] Oxygen saturation in Arterial blood by Pulse oximetry 2022-02-27 13:19:00 99 /min [facility] Systolic blood pressure 2022-02-21 08:06:00 135 mm[Hg] [facility] Diastolic blood pressure 2022-02-21 08:06:00 97 mm[Hg] [facility] Heart rate 2022-02-21 08:06:00 98 /min [facility] Respiratory rate 2022-02-21 08:06:00 16 /min [facility] Oxygen saturation in Arterial blood by Pulse oximetry 2022-02-21 08:06:00 97 /min [facility] Body temperature 2022-02-21 06:16:00 36.94 Irene [facility] Body height 2022-02-21 06:16:00 154.9 cm [facility] Body weight 2022-02-21 06:16:00 60.963 kg [facility] BMI 2022-02-21 06:16:00 25.39 kg/m2 [facility] Systolic blood pressure 2022 20:08:00 136 mm[Hg] [facility] Diastolic blood pressure 2022 20:08:00 96 mm[Hg] [facility] Heart rate 2022 20:08:00 100 /min [facility] Respiratory rate 2022 20:08:00 20 /min [facility] Oxygen saturation in Arterial blood by Pulse oximetry 2022 20:08:00 98 /min [facility] Body temperature 2022 16:56:00 37.06 Irene [facility] Body weight 2022 16:56:00 54.432 kg [facility] BMI 2022 16:56:00 22.67 kg/m2 [facility] Systolic blood pressure 2022-02-05 14:31:00 128 mm[Hg] [facility] Diastolic blood pressure 2022-02-05 14:31:00 84 mm[Hg] [facility] Heart rate 2022-02-05 14:31:00 86 /min [facility] Body temperature 2022-02-05 14:31:00 37.89 Irene [facility] Respiratory rate 2022-02-05 14:31:00 18 /min [facility] Body height 2022-02-05 14:31:00 154.9 cm [facility] Body weight 2022-02-05 14:31:00 54.432 kg [facility] BMI 2022-02-05 14:31:00 22.67 kg/m2 [facility] Oxygen saturation in Arterial blood by Pulse oximetry 2022-02-05 14:31:00 98 /min [facility] Systolic blood pressure 2022-01-18 14:50:00 144 mm[Hg] [facility] Diastolic blood pressure 2022-01-18 14:50:00 92 mm[Hg] [facility] Heart rate 2022-01-18 14:50:00 94 /min [facility] Respiratory rate 2022-01-18 14:50:00 20 /min [facility] Oxygen saturation in Arterial blood by Pulse oximetry 2022-01-18 14:50:00 99 /min [facility] Body weight 2022-01-18 10:18:00 54.432 kg [facility] BMI 2022-01-18 10:18:00 22.67 kg/m2 [facility] Body temperature 2022-01-18 10:15:00 36.72 Irene [facility] Systolic blood pressure 2022-01-15 15:48:26 125 mm[Hg] [facility] Diastolic blood pressure 2022-01-15 15:48:26 85 mm[Hg] [facility] Heart rate 2022-01-15 15:48:26 95 /min Un[facility] Respiratory rate 2022-01-15 15:48:26 18 /min [facility] Oxygen saturation in Arterial blood by Pulse oximetry 2022-01-15 15:48:26 98 /min [facility] Body temperature 2022-01-15 13:32:[address] [facility] Body height 2022-01-15 13:32:00 154.9 cm [facility] Body weight 2022-01-15 13:32:00 54.432 kg [facility] BMI 2022-01-15 13:32:00 22.67 kg/m2 [facility] Systolic blood pressure 2022-01-09 00:37:11 127 mm[Hg] [facility] Diastolic blood pressure 2022-01-09 00:37:11 90 mm[Hg] [facility] Heart rate 2022-01-09 00:37:11 94 /min [facility] Body temperature 2022-01-09 00:37:[address] [facility] Respiratory rate 2022-01-09 00:37:11 16 /min [facility] Oxygen saturation in Arterial blood by Pulse oximetry 2022-01-09 00:37:11 97 /min [facility] Body height 2022-01-08 23:03:00 154.9 cm [facility] Body weight 2022-01-08 23:03:00 58.06 kg [facility] BMI 2022-01-08 23:03:00 24.19 kg/m2 [facility] Systolic blood pressure 2021-12-12 18:00:00 126 mm[Hg] [facility] Diastolic blood pressure 2021-12-12 18:00:00 87 mm[Hg] [facility] Heart rate 2021-12-12 18:00:00 86 /min [facility] Body temperature 2021-12-12 18:00:00 36.89 Irene [facility] Respiratory rate 2021-12-12 18:00:00 18 /min [facility] Body height 2021-12-12 18:00:00 154.9 cm [facility] Body weight 2021-12-12 18:00:00 57.153 kg [facility] BMI 2021-12-12 18:00:00 23.81 kg/m2 [facility] Systolic blood pressure 2023-01-14 16:32:00 138 mm[Hg] [facility] Diastolic blood pressure 2023-01-14 16:32:00 84 mm[Hg] [facility] Heart rate 2023-01-14 16:32:00 67 /min [facility] Body temperature 2023-01-14 16:32:00 36.5 Irene [facility] Respiratory rate 2023-01-14 16:32:00 16 /min [facility] Oxygen saturation in Arterial blood by Pulse oximetry 2023-01-14 16:32:00 99 /min [facility] Body height 2023-01-12 09:05:00 154.9 cm [facility] Body weight 2023-01-12 09:05:00 58.968 kg [facility] BMI 2023-01-12 09:05:00 24.56 kg/m2 [facility] Procedures Procedure Date / Time Performed Performing Clinician Source COMP. METABOLIC PANEL (32956) 2023-05-19 17:22:00 Tod Sellers [facility] CT ABDOMEN PELVIS W CONTRAST 2023-05-19 15:59:54 Tod Sellers [facility] LIPASE 2023-05-19 15:43:00 Tod Sellers Un [facility] CBC WITH DIFF 2023-05-19 15:43:00 [facility] 2023-05-19 15:32:00 Tod Sellers Un [facility] POCT TEST 2023-05-19 15:31:00 Anna Marie Sellers [facility] CONSENT/REFUSAL FOR DIAGNOSIS AND TREATMENT 2023-05-19 14:37:15 Doctor Unassigned, [place] [facility] PHOSPHORUS 2023-01-15 08:15:00 Benita Rockwell Un [facility] MAGNESIUM 2023-01-15 08:15:00 Benita Rockwell [facility] BASIC METABOLIC PANEL (NA, K, CL, CO2, GLUCOSE, BUN, CREATININE, CA) 2023-01-15 08:15:00 Benita Rockwell [facility] CBC WITH DIFF 2023-01-15 08:15:00 Benita Rockwell U [facility] PROTHROMBIN TIME / INR 2023-01-15 08:15:00 Luis Rockwell [facility] MAGNESIUM 2023-01-14 10:14:00 Benita Rockwell [facility] PHOSPHORUS 2023-01-14 10:14:00 Benita Rockwell [facility] BASIC METABOLIC PANEL (NA, K, CL, CO2, GLUCOSE, BUN, CREATININE, CA) 2023-01-14 10:14:00 Benita Rockwell [facility] CBC WITH DIFF 2023-01-14 10:14:00 Benita Rockwell [facility] PHOSPHORUS 2023-01-14 10:14:00 Benita Rockwell [facility] MAGNESIUM 2023-01-14 10:14:00 Benita Rockwell [facility] BASIC METABOLIC PANEL (NA, K, CL, CO2, GLUCOSE, BUN, CREATININE, CA) 2023-01-14 10:14:00 Benita Rockwell [facility] CBC WITH DIFF 2023-01-14 10:14:00 Benita Rockwell U [facility] CBC WITH DIFF 2023-01-13 10:45:00 Rodolfo Riggins [facility] BASIC METABOLIC PANEL (NA, K, CL, CO2, GLUCOSE, BUN, CREATININE, CA) 2023-01-13 10:45:00 Vaishnavi, [facility] MAGNESIUM 2023-01-13 10:45:00 Vaishnavi, [facility] PHOSPHORUS 2023-01-13 10:45:00 Vaishnavi, [facility] HEPATIC FUNCTION PANEL ([id number]) (ALB,T.PRO,BILI T,BU/BC,ALT,AST,ALK PHOS) 2023-01-13 10:45:00 Vaishnavi, [facility] PHOSPHORUS 2023-01-13 10:45:00 Vaishnavi, [facility] MAGNESIUM 2023-01-13 10:45:00 Vaishnavi, [facility] HEPATIC FUNCTION PANEL ([id number]) (ALB,T.PRO,BILI T,BU/BC,ALT,AST,ALK PHOS) 2023-01-13 10:45:00 Vaishnavi, [facility] BASIC METABOLIC PANEL (NA, K, CL, CO2, GLUCOSE, BUN, CREATININE, CA) 2023-01-13 10:45:00 Vaishnavi, [facility] CBC WITH DIFF 2023-01-13 10:45:00 VaishnaviRodolfo dailey [facility] GLUCOSE BODY FLUID 2023-01-12 20:44:00 VaishnaviRodolfo dailey [facility] BODY FLUID MANUAL DIFF 2023-01-12 20:44:00 Clayton Riggins [facility] T.PROTEIN BODY FLUID 2023-01-12 20:44:00 Vaishnavi, Kent [facility] ASPIRATE OR ABSCESS CULTURE(AEROBIC/ANAEROBIC ) 2023-01-12 20:44:00 Vaishnavi, [facility] TOTAL BODY FLUID 2023-01-12 20:44:00 Vaishnavi, [facility] GLUCOSE BODY FLUID 2023-01-12 20:44:00 [facility] T.PROTEIN BODY FLUID 2023-01-12 20:44:00 Vaishnavi [facility] BODY FLUID DIRECT COUNT 2023-01-12 20:44:00 Vaishnavi K ent [facility] ASPIRATE OR ABSCESS CULTURE(AEROBIC/ANAEROBIC ) 2023-01-12 20:44:00 Rodolfo Riggins [facility] LDH TOTAL BODY FLUID 2023-01-12 20:44:00 Rodolfo Riggins [facility] PROTHROMBIN TIME / INR 2023-01-12 08:13:00 VaishnaviClayton wade [facility] PROTHROMBIN TIME / INR 2023-01-12 08:13:00 VaishnaviClayton wade nt [facility] COMP. METABOLIC PANEL ([id number]) 2023-01-12 03:49:00 Ciera García [facility] COMP. METABOLIC PANEL ([id number]) 2023-01-12 03:49:00 Ciera García [facility] CT ABDOMEN PELVIS W CONTRAST 2023-01-12 03:32:06 Ciera García [facility] CT ABDOMEN PELVIS W CONTRAST 2023-01-12 03:32:06 Ciera García [facility] POCT TEST 2023-01-12 03:02:00 Jessica García [facility] POCT TEST 2023-01-12 03:02:00 Jessica García [facility] URINALYSIS 2023-01-12 02:56:00 Kenneth García [facility] LIPASE 2023-01-12 02:56:00 Kenneth García [facility] TOTAL BETA HCG ASSAY 2023-01-12 02:56:00 Ciera García [facility] CBC WITH DIFF 2023-01-12 02:56:00 Kenneth García Marie [facility] EXTRA TUBE ORANGE 2023-01-12 02:56:00 Aroldo Siddiqui [facility] EXTRA TUBE LAV 2023-01-12 02:56:00 Aroldo Siddiqui [facility] LIPASE 2023-01-12 02:56:00 Kenneth García Marie [facility] TOTAL BETA HCG ASSAY 2023-01-12 02:56:00 Ciera García [facility] CBC WITH DIFF 2023-01-12 02:56:00 Kenneth García Marie [facility] URINALYSIS 2023-01-12 02:56:00 Kenneth García [facility] EXTRA TUBE LAV 2023-01-12 02:56:00 Aroldo Siddiqui [facility] EXTRA TUBE ORANGE 2023-01-12 02:56:00 Aroldo Siddiqui [facility] CONSENT/REFUSAL FOR DIAGNOSIS AND TREATMENT 2023-01-12 01:46:10 Doctor Unassigned, [place] [facility] CONSENT/REFUSAL FOR DIAGNOSIS AND TREATMENT 2023-01-12 01:46:10 Doctor Unassigned, [place] [facility] ASSIGNMENT OF BENEFITS 2022-11-21 19:49:02 Docto r Unassigned, [place] [facility] ASSIGNMENT OF BENEFITS 2022-11-21 19:49:02 Docto r Unassigned, [place] [facility] CONSENT/REFUSAL FOR DIAGNOSIS AND TREATMENT 2022-11-21 18:03:25 Doctor Unassigned, [place] [facility] CONSENT/REFUSAL FOR DIAGNOSIS AND TREATMENT 2022-11-21 18:03:25 Doctor Unassigned, [place] [facility] EMERGENCY SERVICES AGREEMENTS AND AUTHORIZATIONS 2022-11-21 05:01:00 Doctor Unassigned, [place] [facility] CONSENT/REFUSAL FOR DIAGNOSIS AND TREATMENT 2022-09-05 13:42:02 Doctor Unassigned, [place] [facility] LIPASE 2022-07-31 23:13:00 [facility] 2022-07-31 23:13:00 Domenico Newell [facility] COMP. METABOLIC PANEL ([id number]) 2022-07-31 23:13:00 Manju Newell [facility] CBC WITH DIFF 2022-07-31 23:13:00 Manju Newell [facility] CONSENT/REFUSAL FOR DIAGNOSIS AND TREATMENT 2022-07-31 22:49:17 Doctor Unassigned, [place] [facility] XR ANKLE 3+ VW RIGHT 2022-07-15 16:00:00 Hi Kaur [facility] XR FOOT 3+ VW RIGHT 2022-07-15 16:00:00 Jenifer Kaur [facility] XR FOOT 3+ VW RIGHT 2022-07-15 16:00:00 Jenifer Kaur [facility] PATIENT FINANCIAL POLICY 2022-07-15 15:25:53 Doctor Unassigned, [place] [facility] POCT MOLECULAR STREP 2022-06-23 16:06:00 Unknown, Atte catherine [facility] ASSIGNMENT OF BENEFITS 2022-06-23 15:18:28 Docto r Unassigned, [place] [facility] COMP. METABOLIC PANEL ([id number]) 2022-05-05 19:14:00 Karon Norton [facility] CBC WITH DIFF 2022-05-05 19:14:00 Karon Norton [facility] POCT TEST 2022-05-05 19:00:00 Lou Norton [facility] URINALYSIS 2022-05-05 18:58:[facility] 2022-04-26 15:11:00 Zion Bridges [facility] COMP. METABOLIC PANEL ([id number]) 2022-04-26 14:49:00 Zion Bridges [facility] CBC WITH DIFF 2022-04-26 14:49:00 Zion Bridges [facility] URINALYSIS 2022-04-26 14:49:00 Zion Bridges [facility] POCT TEST 2022-04-26 14:45:00 Jonn Bridges [facility] CONSENT/REFUSAL FOR DIAGNOSIS AND TREATMENT 2022-04-26 14:22:29 Doctor Unassigned, [place] [facility] POCT TEST 2022-04-26 01:22:00 Jonn Bridges [facility] ASSIGNMENT OF BENEFITS 2022-04-26 00:54:02 Docto r Unassigned, [place] [facility] URINALYSIS 2022-04-26 00:45:00 Zion Bridges [facility] CONSENT/REFUSAL FOR DIAGNOSIS AND TREATMENT 2022-04-26 00:16:47 Doctor Unassigned, [place] [facility] BASIC METABOLIC PANEL (NA, K, CL, CO2, GLUCOSE, BUN, CREATININE, CA) 2022-04-07 22:35:00 Olamide Garvin [facility] CBC WITH DIFF 2022-04-07 22:35:00 Olamide Garvin [facility] URINALYSIS 2022-04-07 21:36:00 Olamide Garvin [facility] URINE DRUG (IMMUNOASSAY) - COMPREHENSIVE DRUG SCREEN W/O REFLEX 2022-04-07 21:36:00 Olamide Garvin [facility] CONSENT/REFUSAL FOR DIAGNOSIS AND TREATMENT 2022-04-07 19:29:15 Doctor Unassigned, [place] [facility] POCT TEST 2022-03-24 14:07:00 Kellie Duncan [facility] CONSENT/REFUSAL FOR DIAGNOSIS AND TREATMENT 2022-03-24 13:27:20 Doctor Unassigned, [place] [facility] CT ABDOMEN PELVIS WO CONTRAST 2022-03-15 14:09:04 Anna Gould [facility] URINALYSIS 2022-03-15 13:53:00 [facility] 2022-03-15 13:52:00 Kimberly Gould [facility] CONSENT/REFUSAL FOR DIAGNOSIS AND TREATMENT 2022-03-15 13:37:02 Doctor Unassigned, [place] [facility] POCT TEST 2022-03-11 14:59:00 Redd Viveros [facility] FLU VACC ([id number]), 6 MO-64 YRS, .5ML, IM, QUAD (FLUCELVAX) 2022-02-27 13:34:55 Vijay Martinez [facility] NOTICE OF PRIVACY PRACTICES 2022-02-21 06:06:30 Doctor Unassigned, [place] [facility] CONSENT/REFUSAL FOR DIAGNOSIS AND TREATMENT 2022-02-21 06:03:41 Doctor Unassigned, [place] [facility] XR ANKLE <3 VW RIGHT 2022 17:56:42 Buster Hamilton [facility] CT ABDOMEN PELVIS W CONTRAST 2022 17:44:17 Maggie Hamilton [facility] CT TRAUMA CERVICAL SPINE WO CONTRAST 2022 17:43:49 Maggie Hamilton [facility] POCT TEST 2022 17:27:00 Zoie Hamilton ra [facility] COMP. METABOLIC PANEL ([id number]) 2022 17:17:00 Maggie Hamilton [facility] CBC WITH DIFF 2022 17:17:00 Maggie Hamilton U [facility] CONSENT/REFUSAL FOR DIAGNOSIS AND TREATMENT 2022 16:53:13 Doctor Unassigned, [place] [facility] US GALL BLADDER 2022-01-18 12:31:09 Bernardo Levy [facility] US PELVIS COMPLETE WITH TRANSVAGINAL 2022-01-18 12:21:13 Melvin Zhao [facility] CT ABDOMEN PELVIS W CONTRAST 2022-01-18 11:20:50 Melvin Zhao [facility] POCT TEST 2022-01-18 10:57:00 Jayy Kennedy [facility] COVID-19 (ID NOW RAPID TESTING) 2022-01-18 10:57:00 Jayy Kennedy [facility] URINALYSIS 2022-01-18 10:47:00 Jayy Kennedy [facility] LIPASE 2022-01-18 10:29:00 Jayy Kennedy [facility] TEST, SERUM 2022-01-18 10:29:00 Jayy Kennedy [facility] HEPATIC FUNCTION PANEL ([id number]) (ALB,T.PRO,BILI T,BU/BC,ALT,AST,ALK PHOS) 2022-01-18 10:29:00 Jayy Kennedy [facility] BASIC METABOLIC PANEL (NA, K, CL, CO2, GLUCOSE, BUN, CREATININE, CA) 2022-01-18 10:29:00 Jayy Kennedy [facility] CBC WITH DIFF 2022-01-18 10:29:00 Jayy Kennedy [facility] CONSENT/REFUSAL FOR DIAGNOSIS AND TREATMENT 2022-01-18 10:13:31 Doctor Unassigned, [place] [facility] CT HEAD WO CONTRAST 2022-01-15 15:22:29 Maura Samayoa [facility] TEST, SERUM 2022-01-15 14:36:00 Hudson Samayoa [facility] BASIC METABOLIC PANEL (NA, K, CL, CO2, GLUCOSE, BUN, CREATININE, CA) 2022-01-15 14:36:00 Maura Samayoa [facility] CBC WITH DIFF 2022-01-15 14:36:00 Maura Samayoa [facility] CONSENT/REFUSAL FOR DIAGNOSIS AND TREATMENT 2022-01-15 13:28:12 Doctor Unassigned, [place] [facility] XR CERVICAL SPINE 4 VW 2022-01-09 00:29:16 [facility] LUM[facility] 4 VW 2022-01-09 00:29:16 Gabriela, And res [facility] XR SPINE THORACIC 3 VW 2022-01-09 00:29:16 Kassandra Ochoa [facility] URINALYSIS 2022-01-08 23:50:00 Humberto Ochoa [facility] CONSENT/REFUSAL FOR DIAGNOSIS AND TREATMENT 2022-01-08 22:51:08 Doctor Unassigned, [place] [facility] GALV ONLY - VAGINAL PATHOGENS BY NUCLEIC ACID TESTING 2021-12-12 18:37:00 Prasanna Vargas [facility] URINE CULTURE 2021-12-12 18:32:00 Prasanna Vargas [facility] POCT TEST 2021-12-12 18:31:00 Prasanna Vargas [facility] POCT URINALYSIS W/O SPECIFIC GRAVITY 2021-12-12 18:31:00 Prasanna Vargas [facility] Encounters Start Date/Time End Date/Time Encounter Type Admission Type Attending [facility] Care Facility Care Department Encounter ID Source 2021-03-14 03:14:31 Emergency [facility] [id number] [facility] 2021-03-13 20:05:20 Emergency [facility] [id number] [facility] 2021-03-13 12:48:28 Emergency [facility] [id number] [facility] 2021-03-13 02:43:51 Emergency [facility] [id number] [facility] 2021-03-13 00:27:09 Emergency [facility] [id number] [facility] 2021-03-12 22:10:36 Emergency [facility] [id number] [facility] 2021-03-12 20:04:05 Emergency [facility] [id number] [facility] 2021-03-12 15:25:05 Emergency [facility] [id number] [facility] 2021-03-12 11:43:36 Emergency [facility] [id number] [facility] 2021-03-12 07:41:37 Emergency [facility] [id number] [facility] 2021-03-12 05:43:47 Emergency [facility] [id number] [facility] 2021-03-12 03:43:41 Emergency [facility] [id number] [facility] 2021-03-12 01:31:27 Emergency [facility] [id number] [facility] 2021-03-12 00:56:44 Emergency X [facility] [id number] [facility] 2021-03-12 00:56:31 Emergency [facility] [id number] [facility] 2021-03-11 17:47:02 Emergency [facility] [id number] [facility] 2021-03-11 16:27:15 Emergency [facility] [id number] [facility] 2021-03-11 12:00:58 Emergency [facility] [id number] [facility] 2021-03-11 10:33:59 Emergency [facility] [id number] [facility] 2021-03-11 01:36:52 Emergency [facility] [id number] [facility] 2021-03-10 23:35:34 Emergency [facility] [id number] [facility] 2021-03-10 19:06:16 Emergency [facility] [id number] [facility] 2021-03-10 12:39:47 Emergency [facility] [id number] [facility] 2021-03-10 06:54:04 Emergency [facility] [id number] [facility] 2021-03-09 13:25:44 Outpatient P [facility] [id number] [facility] 2021-03-09 13:08:01 Outpatient P [facility] [id number] [facility] 2021-03-09 12:37:25 Outpatient P [facility] [id number] [facility] 2021-03-09 11:51:20 Outpatient P [facility] [id number] [facility] 2023-09-12 00:00:00 2023-09-12 00:00:00 Outpatient ROLDAN QUIROZ [facility] [id number] [facility] 2023-08-26 00:00:00 2023-08-26 00:00:00 Transition of Care Marlys Odell [id number] [facility] 2023-08-23 08:31:00 2023-08-24 13:25:00 Outpatient X ROLDAN LIM [facility] [id number] [facility] 2023-08-04 14:56:23 2023-08-04 14:56:23 Outpatient [facility] [id number] Willis Gil 2023-06-27 14:47:45 2023-06-27 14:47:45 Outpatient [facility] [id number] Willis Gil 2023-05-19 09:04:00 2023-05-19 12:20:[address] Emergency X [facility] [id number] [facility] 2023-05-19 09:04:00 2023-05-19 12:20:00 Emergency Tod Sellers [facility] [id number] [facility] 2023-04-05 00:00:00 2023-04-05 00:00:00 Patient Secure Msg Prasanna Vargas [facility] [id number] [facility] 2023-02-14 12:59:23 2023-02-14 12:59:23 Outpatient SFA [facility] [id number] Willis Gil 2023-02-06 18:19:02 2023-02-06 18:19:[address] [facility] [id number] Willis Gil 2023-01-30 00:00:00 2023-01-30 00:00:[address]_R [facility] [id number] [facility] 2023-01-16 00:00:00 2023-01-16 00:00:00 Transition of Care Marlys Odell 1.2.840.114 350.1.13.10 4.2.7.2.686 [id number] [facility] 2023-01-11 21:06:00 2023-01-15 16:00:00 Inpatient X OLIVER STEELE [facility] DAVID [id number] [facility] 2023-01-11 21:06:00 2023-01-15 16:00:00 Hospital Encounter Aroldo Siddiqui, [facility] 1.2.840.114 350.1.13.10 4.2.7.2.686 [id number] [facility] 2023-01-12 00:00:00 2023-01-12 00:00:00 Travel 1.2.840.1 93297.1.1 3.104.2.7 .3.102775 .8 1.2.840.114 350.1.13.10 4.2.7.3.698 084.8 [id number] [facility] 2023-01-11 00:00:00 2023-01-11 00:00:00 Travel 1.2.840.1 84215.1.1 3.104.2.7 .3.672271 .8 1.2.840.114 350.1.13.10 4.2.7.3.698 084.8 [id number] [facility] 2022-12-28 00:00:00 2022-12-28 00:00:[address]_R [facility] [id number] 2022-12-14 18:37:13 2022-12-14 18:37:[address] [facility] [id number] Willis Gil 2022-12-13 00:00:00 2022-12-13 00:00:00 [address] [facility]_[facility] [id number] 2022-12-12 09:30:00 2022-12-12 09:30:00 Outpatient PRASANNA LOOMIS [facility] [id number] [facility] 2022-11-21 13:08:00 2022-11-21 16:45:[address] [facility] ERT [id number] [facility] 2022-11-21 13:08:00 2022-11-21 16:45:00 Emergency [place] Bridges Christopher 1.2.840.1 65078.1.1 3.104.2.7 .3.812213 .8 [id number] [facility] 2022-11-21 00:00:00 2022-11-21 00:00:00 Travel 1.2.840.1 55802.1.1 3.104.2.7 .3.598481 .8 1.2.840.114 350.1.13.10 4.2.7.3.698 084.8 [id number] [facility] 2022-11-18 10:08:00 2022-11-18 10:08:00 Outpatient [facility] [id number] Willis Gil 2022-11-15 09:40:00 2022-11-15 09:40:00 Outpatient LIAN LABOY CHRISTINE [facility] [id number] [facility] 2022-11-15 00:00:00 2022-11-15 00:00:00 Orders Only Palak Marrufo 1.2.840.1 29249.1.1 3.104.2.7 .3.263664 .8 [id number] [facility] 2022-11-09 15:26:18 2022-11-09 15:26:18 Outpatient [facility] [id number] Willis Gil 2022-11-06 13:00:00 2022-11-06 13:00:00 Outpatient VIJAY ARAUZ [facility] [id number] [facility] 2022-10-29 00:00:00 2022-10-29 00:00:00 Patient Secure Msg Lian Greene 1.2.840.1 34685.1.1 3.104.2.7 .3.980273 .8 [id number] [facility] 2022-10-29 00:00:00 2022-10-29 00:00:00 Patient Secure Msg Prasanna Vargas 1.2.840.1 61017.1.1 3.104.2.7 .3.384868 .8 [id number] [facility] 2022-10-03 00:00:00 2022-10-03 00:00:00 Letter (Out) Roldan Lim [facility] TOÑO?[facility] 1.2.840.114 350.1.13.10 4.2.7.2.686 [id number] [facility] 2022-10-02 10:00:00 2022-10-02 10:00:00 Outpatient R CELINA FINNEY [facility] [id number] [facility] 2022-10-01 09:40:00 2022-10-01 09:40:00 Outpatient R REJI DÍAZ [facility] [id number] [facility] 2022-09-25 00:00:00 2022-09-25 00:00:00 Telephone Rad Serra [facility] 1..840.114 350.1.13.10 4.2.7.2.686 [id number] [facility] 2022-09-21 09:30:00 2022-09-21 09:30:00 Outpatient R KASSANDRA PUGH [facility] [id number] [facility] 2022-09-21 00:00:00 2022-09-21 00:00:00 Letter (Out) [facility] 1..840.114 350.1.13.10 4.2.7.2.686 [id number] [facility] 2022-09-21 00:00:00 2022-09-21 00:00:00 Telephone [facility] TO[facility] 1..840.114 350.1.13.10 4.2.7.2.686 [id number] [facility] 2022-09-21 00:00:00 2022-09-21 00:00:00 Telephone [facility] TO[facility]O?[facility] 1..840.114 350.1.13.10 4.2.7.2.686 [id number] [facility] 2022-09-14 09:30:00 2022-09-14 09:30:00 [facility] [id number] [facility] 2022-09-12 00:00:00 2022-09-12 00:00:00 [facility] 1.840.114 350.1.13.10 4.2.7.2.686 [id number] [facility] 2022-09-07 11:30:00 2022-09-07 11:30:00 [facility] [id number] [facility] 2022-09-05 08:44:00 2022-09-05 13:15:00 Emergency X KENNEDY WHITLEY [facility] ERT [id number] [facility] 2022-09-05 08:44:00 2022-09-05 13:15:00 Emergency LisetTammieise [facility] 1.840.114 350.1.13.10 4.2.7.2.686 [id number] [facility] 2022-09-04 00:00:00 2022-09-04 00:00:00 [facility] 1..840.114 350.1.13.10 4.2.7.2.686 [id number] [facility] 2022-09-04 00:00:00 2022-09-04 00:00:00 Patient Secure Rad Wells [facility] PROFESSIO NAL BUILDING 1.2.84.114 350.1.13.10 4.2.7.2.686 [id number] [facility] 2022-08-29 09:00:00 2022-08-29 09:00:00 Outpatient R CELINA FINNEY [facility] [id number] [facility] 2022-08-14 00:00:00 2022-08-14 00:00:00 Patient Secure Msg Doctor Unassigned, [place] [facility] 1.84114 350.1.13.10 4.2.7.2.686 [id number] [facility] 2022-07-31 17:56:00 2022-07-31 20:30:00 Emergency X SCOTTIE [facility] E[facility] [id number] [facility] 2022-07-31 17:56:00 2022-07-31 20:30:00 [facility] Moose[facility] 1.84.114 350.1.13.10 4.2.7.2.686 [id number] [facility] 2022-07-15 09:46:45 2022-07-15 23:59:00 Outpatient R NATASHAMARILYN ESPARZACARI [facility] [id number] [facility] 2022-07-15 09:46:45 2022-07-15 23:59:00 Hospital En[facility] 1.84.114 350.1.13.10 4.2.7.2.686 [id number] [facility] 2022-07-15 09:46:45 2022-07-15 23:59:00 Hospital Encounter [facility] 1.84.114 350.1.13.10 4.2.7.2.686 [id number] [facility] 2022-07-15 09:20:00 2022-07-15 10:29:17 Urgent Care Cari Kaur Unknown, Attending [facility] 1.2.840.114 350.1.13.10 4.2.7.2.686 [id number] [facility] 2022-07-15 00:00:00 2022-07-15 00:00:00 Orders Only Doctor Unassigned, [place] [facility] 1..840.114 350.1.13.10 4.2.7.2.686 [id number] [facility] 2022-06-23 09:20:00 2022-06-23 10:27:39 Outpatient R PAUL SAMAYOA [facility] [id number] [facility] 2022-06-23 09:20:00 2022-06-23 10:27:39 Urgent Care Paul Samayoa Unknown, Attending [facility] 1..840.114 350.1.13.10 4.2.7.2.686 [id number] [facility] 2022-06-23 00:00:00 2022-06-23 00:00:00 Orders Only Doctor Unassigned, [place] [facility] 1.2840.114 350.1.13.10 4.2.7.2.686 [id number] [facility] 2022-06-15 09:40:00 2022-06-15 09:40:00 Outpatient LIAN LABOY [facility] [id number] [facility] 2022-05-29 08:00:00 2022-05-29 08:00:00 Outpatient KASSANDRA MCKINLEY [facility] [id number] [facility] 2022-05-15 09:20:00 2022-05-15 09:20:00 Outpatient R BENNETT MILLER [facility] [id number] [facility] 2022-05-11 09:30:00 2022-05-11 09:30:00 Outpatient R KASSANDRA PUGH [facility] [id number] [facility] 2022-05-05 12:26:00 2022-05-05 16:11:00 Emergency X KARON NORTON [facility] ERT [id number] [facility] 2022-05-05 12:26:00 2022-05-05 16:11:00 Emergency Karon Norton [facility] 1.2.840.114 350.1.13.10 4.2.7.2.686 [id number] [facility] 2022-05-01 00:00:00 2022-05-01 00:00:00 Outpatient R VARGASPRASANNA [facility] [id number] [facility] 2022-04-26 08:30:00 2022-04-26 09:59:00 Emergency X ZION BRIDGES [facility] ERT [id number] [facility] 2022-04-26 08:30:00 2022-04-26 09:59:00 Emergency Zion Bridges [facility] 1.2.840.114 350.1.13.10 4.2.7.2.686 [id number] [facility] 2022-04-25 18:23:00 2022-04-25 21:55:00 Emergency X KENNEDY WHITLEY [facility] ERT [id number] [facility] 2022-04-25 18:23:00 2022-04-25 21:55:00 Emergency Kennedy Whitley [facility] 1.2.840.114 350.1.13.10 4.2.7.2.686 [id number] [facility] 2022-04-19 10:00:00 2022-04-19 10:00:00 Outpatient R ISIDRONiteshLIAN [facility] [id number] [facility] 2022-04-12 00:00:00 2022-04-12 00:00:00 Telephone [facility] 1.2.840.114 350.1.13.10 4.2.7.2.686 [id number] [facility] 2022-04-11 00:00:00 2022-04-11 00:00:00 Telephone PattiDarrion salmon [facility] TOÑO[facility] 1.2.840.114 350.1.13.10 4.2.7.2.686 [id number] [facility] 2022-04-10 00:00:00 2022-04-10 00:00:00 [facility] 1.2.840.114 350.1.13.10 4.2.7.2.686 [id number] [facility] 2022-04-09 09:30:00 2022-04-09 09:30:00 Office Visit [facility] TO[facility] 1.2.840.114 350.1.13.10 4.2.7.2.686 [id number] [facility] 2022-04-09 09:30:00 2022-04-09 09:21:44 Out[facility] [id number] [facility] 2022-04-07 13:41:00 2022-04-07 17:49:00 Emergency X OLAMIDE GARVIN [facility] ERT [id number] [facility] 2022-04-07 13:41:00 2022-04-07 17:49:00 Emergency Olamide Garvin G [facility] 1.2840.114 350.1.13.10 4.2.7.2.686 [id number] [facility] 2022-04-07 00:00:00 2022-04-07 00:00:00 Patient Secure Msg Doctor Unassigned, [place] [facility] 1..114 350.1.13.10 4.2.7.2.686 [id number] [facility] 2022-04-04 00:00:00 2022-04-04 00:00:00 Anastasiia Coelhossica [facility] 1.84.114 350.1.13.10 4.2.7.2.686 [id number] [facility] 2022-04-02 10:30:00 2022-04-02 10:30:00 Outpatient KASSANDRA MCKINLEY [facility] [id number] [facility] 2022-03-28 00:00:00 2022-03-28 00:00:00 Patient Secure Msg Doctor Unassigned, [place] [facility] 1.84.114 350.1.13.10 4.2.7.2.686 [id number] [facility] 2022-03-24 07:35:00 2022-03-24 13:11:00 Emergency X KELLIE DUNCAN [facility] ERT [id number] [facility] 2022-03-24 07:35:00 2022-03-24 13:11:00 Emergency Kellie Duncan [facility] 1.2.114 350.1.13.10 4.2.7.2.686 [id number] [facility] 2022-03-23 10:30:00 2022-03-23 10:30:00 Outpatient KASSANDRA MCKINLEY [facility] [id number] [facility] 2022-03-23 00:00:00 2022-03-23 00:00:00 Telephone Darrion Wyatt [facility] TOÑO?[facility]ILD[facility] 1.2.840.114 350.1.13.10 4.2.7.2.686 [id number] [facility] 2022-03-22 00:00:00 2022-03-22 00:00:00 Telephone Darrion Wyatt [facility] TOÑO?TES[facility] MED[facility] OFF[facility] BUILDING 1..840.114 350.1.13.10 4.2.7.2.686 [id number] [facility] 2022-03-22 00:00:00 2022-03-22 00:00:00 Refill Darrion Wyatt [facility] TOÑO?[facility] 1..840.114 350.1.13.10 4.2.7.2.686 [id number] [facility] 2022-03-21 00:00:00 2022-03-21 00:00:00 Telephone Darrion Wyatt [facility] TOÑO?[facility] 1.2.840.114 350.1.13.10 4.2.7.2.686 [id number] [facility] 2022-03-15 14:00:00 2022-03-15 14:36:19 Outpatient R REJI DÍAZ [facility] [id number] [facility] 2022-03-15 14:00:00 2022-03-15 14:36:19 Office Visit Reji Díaz [facility]DNA PROFESSIO NAL BUILDING 1.2.840.114 350.1.13.10 4.2.7.2.686 [id number] [facility] 2022-03-15 08:40:2022-03-15 10:47:[address] X [address]NA [address]OULD [facility] ERT [id number] [facility] 2022-03-15 08:40:00 2022-03-15 10:47:00 Emergency Anna Gould [facility] 1..840.114 350.1.13.10 4.2.7.2.686 [id number] [facility] 2022-03-14 10:30:00 2022-03-14 10:30:00 Outpatient PRASANNA LOOMIS [facility] [id number] [facility] 2022-03-11 09:22:00 2022-03-11 12:15:00 Emergency X ANGELICA VIVEROS [facility] ERT [id number] [facility] 2022-03-11 09:22:00 2022-03-11 12:15:00 Emergency RosemarieAngelica triana [facility] 1.840.114 350.1.13.10 4.2.7.2.686 [id number] [facility] 2022-03-06 08:30:00 2022-03-06 08:30:00 Outpatient KASSANDRA MCKINLEY [facility] [id number] [facility] 2022-03-02 00:00:00 2022-03-02 00:00:00 Telephone Darrion Wyatt [facility] 1..840.114 350.1.13.10 4.2.7.2.686 [id number] [facility] 2022-02-28 00:00:00 2022-02-28 00:00:00 Patient Secure Msg Doctor Unassigned, [place] [facility] 1..840.114 350.1.13.10 4.2.7.2.686 [id number] [facility] 2022-02-27 09:30:00 2022-02-27 09:49:42 Outpatient R KASSANDRA PUGH [facility] [id number] [facility] 2022-02-27 09:30:00 2022-02-27 09:49:42 Office Visit Anastasiia Pughssica [facility] TOÑO?[facility] 1..840.114 350.1.13.10 4.2.7.2.686 [id number] [facility] 2022-02-27 08:00:00 2022-02-27 09:12:17 Office Visit Vijay Martinez [facility] TO[facility] 1..840.114 350.1.13.10 4.2.7.2.686 [id number] [facility] 2022-02-26 11:30:00 2022-02-26 11:30:00 Outpatient R KASSANDRA PUGH [facility] [id number] [facility] 2022-02-21 01:20:00 2022-02-21 03:44:00 Emergency X MAGGIE HAMILTON [facility] ERT [id number] [facility] 2022-02-21 01:20:00 2022-02-21 03:44:00 Emergency Maggie Hamilton [facility] 1..840.114 350.1.13.10 4.2.7.2.686 [id number] [facility] 2022-02-19 00:00:00 2022-02-19 00:00:00 Patient Secure Msg Kendal Zamudio [facility] TOÑO[facility] MED[facility] OFF[facility] BUILD[facility] 1..840.114 350.1.13.10 4.2.7.2.686 [id number] [facility] 2022-02-19 00:00:00 2022-02-19 00:00:00 Patient Secure Msg Kendal Zamudio [facility] TOÑO?[facility] 1.84114 350.1.13.10 4.2.7.2.686 [id number] [facility] 2022-02-19 00:00:00 2022-02-19 00:00:00 Patient Secure Msg Ade Bradford [facility] 1.114 350.1.13.10 4.2.7.2.686 [id number] [facility] 2022-02-19 00:00:00 2022-02-19 00:00:00 Patient Secure Msg Martin Ross Farzana [facility] AUXILIARY EQUIPMENT TENDER [facility] MATERNAL & [facility] 1..114 350.1.13.10 4.2.7.2.686 [id number] [facility] 2022 11:58:00 2022 15:13:00 Emergency X MAGGIE HAMILTON [facility] ERT [id number] [facility] 2022 11:58:00 2022 15:13:00 Emergency Maggie Hamilton [facility] 1..114 350.1.13.10 4.2.7.2.686 [id number] [facility] 2022-02-09 09:00:00 2022-02-09 09:00:00 Outpatient R CRICKET TAYLOR [facility] [id number] [facility] 2022-02-06 10:00:00 2022-02-06 10:00:00 Outpatient VIJAY ARAUZ [facility] [id number] [facility] 2022-02-05 09:45:00 2022-02-05 10:05:00 Nurse Visit Nurse, Filippo [facility] Ileana Medrano [facility] TOÑO?[facility] 1.84.114 350.1.13.10 4.2.7.2.686 [id number] [facility] 2022-02-05 09:20:00 2022-02-05 09:20:00 Outpatient FLACO KEE [facility] [id number] [facility] 2022-01-26 00:00:00 2022-01-26 00:00:00 Case Management Prasanna Vargas [facility] 1..114 350.1.13.10 4.2.7.2.686 [id number] [facility] 2022-01-22 11:00:00 2022-01-22 11:00:00 Outpatient VIJAY ARAUZ [facility] [id number] [facility] 2022-01-19 00:00:00 2022-01-19 00:00:00 Patient Secure Msg Doctor Unassigned, [place] [facility] .114 350.1.13.10 4.2.7.2.686 [id number] [facility] 2022-01-18 05:17:00 2022-01-18 10:25:[address] [facility] ERT [id number] [facility] 2022-01-18 05:17:00 2022-01-18 10:25:00 Emergency Jayy Kennedy [facility] ..114 350.1.13.10 4.2.7.2.686 [id number] [facility] 2022-01-15 08:34:00 2022-01-15 10:49:[address] [facility] ERT [id number] [facility] 2022-01-15 08:34:00 2022-01-15 10:49:00 Emergency Larry Perez Robert Lee [facility] ..114 350.1.13.10 4.2.7.2.686 [id number] [facility] 2022-01-08 18:04:00 2022-01-08 20:09:00 Emergency X HUMBERTO OCHOA [facility] ERT [id number] [facility] 2022-01-08 18:04:00 2022-01-08 20:09:00 Emergency Humberto Ochoa [facility] .2.840.114 350.1.13.10 4.2.7.2.686 [id number] [facility] 2021-12-12 13:30:00 2021-12-12 13:40:21 Outpatient Farzana CARNES [facility] [id number] [facility] 2021-12-12 13:30:00 2021-12-12 13:40:21 [facility] 1.2.840.114 350.1.13.10 4.2.7.2.686 [id number] [facility] 2021-12-12 13:30:00 2021-12-12 13:40:21 Outpatient Farzana CARNES [facility] [id number] [facility] 2021-12-12 13:30:00 2021-12-12 13:40:21 Outpatient Farzana CARNES [facility] [id number] [facility] 2021-12-11 16:15:00 2021-12-11 16:15:00 Outpatient ADE KING [facility] [id number] [facility] 2021-12-05 14:15:00 2021-12-05 14:15:00 Outpatient ROMULO BROWNING [facility] [id number] [facility] 2021-11-28 08:49:00 2021-11-28 11:02:[address] X ERROL KARON [facility] ERT [id number] [facility] 2021-11-28 08:49:00 2021-11-28 11:02:00 Emergency Karon Norton [facility] 1.2840.114 350.1.13.10 4.2.7.2.686 [id number] [facility] 2021-11-28 00:00:00 2021-11-28 00:00:00 Patient Secure Msg Cricket Taylor [facility] [employer] [facility] 1.0.114 350.1.13.10 4.2.7.2.686 [id number] [facility] 2021-11-24 18:14:00 2021-11-24 21:04:00 Emergency X Kaycee MÉNDEZ [facility] ERT [id number] [facility] 2021-11-24 18:14:00 2021-11-24 21:04:00 Emergency Kaycee Méndez [facility] 1.0.114 350.1.13.10 4.2.7.2.686 [id number] [facility] 2021-11-24 00:00:00 2021-11-24 00:00:[address] [facility] [employer] [facility] 1.0.114 350.1.13.10 4.2.7.2.686 [id number] [facility] 2021-11-20 00:00:00 2021-11-20 00:00:00 Patient Secure Msg Kendal Zamudio [facility] 1.2.114 350.1.13.10 4.2.7.2.686 [id number] [facility] 2021-11-19 00:00:00 2021-11-19 00:00:00 Letter (Out) Noam, [facility] 1.2.840.114 350.1.13.10 4.2.7.2.686 [id number] [facility] 2021-11-18 10:41:40 2021-11-18 23:59:00 Outpatient R FLACO BOYD [facility] [id number] [facility] 2021-11-18 10:41:40 2021-11-18 23:59:00 Hospital Encounter Oliver Critical access hospital?[facility] MED[facility] BU[facility] 1..840.114 350.1.13.10 4.2.7.2.686 [id number] [facility] 2021-11-18 10:20:00 2021-11-18 10:53:20 [facility] 1..840.114 350.1.13.10 4.2.7.2.686 [id number] [facility] 2021-11-09 10:30:00 2021-11-09 10:30:00 Outpatient R CELINA MIXON [facility] [id number] [facility] 2021-10-25 13:20:00 2021-10-25 13:20:00 Urgent Care Mitchell [facility] MED[facility] 1..840.114 350.1.13.10 4.2.7.2.686 [id number] [facility] 2021-10-25 13:20:00 2021-10-25 12:47:59 Outpatient R ILEANA MEDRANO [facility] [id number] [facility] 2021-10-25 00:00:00 2021-10-25 00:00:00 Patient Secure [facility] [place] [facility] 1..840.114 350.1.13.10 4.2.7.2.686 [id number] [facility] 2021-10-25 00:00:00 2021-10-25 00:00:00 Telephone Juan Vijay [facility] MED[facility] OFF[facility] BU[facility] 1.2.840.114 350.1.13.10 4.2.7.2.686 [id number] [facility] 2021-10-25 00:00:00 2021-10-25 00:00:00 Telephone Provider, Filippo [facility] Care [facility] MED[facility] BU[facility] 1.2.840.114 350.1.13.10 4.2.7.2.686 [id number] [facility] 2021-10-25 00:00:00 2021-10-25 00:00:00 Telephone Nurse, Filippo [facility] MED[facility] OFF[facility] BU[facility] 1.2.840.114 350.1.13.10 4.2.7.2.686 [id number] [facility] 2021-10-24 10:15:00 2021-10-24 10:15:00 Outpatient ROMULO BROWNING [facility] [id number] [facility] 2021-10-24 10:15:00 2021-10-24 10:15:00 Outpatient ROMULO BROWNING [facility] [id number] [facility] 2021-10-11 09:30:00 2021-10-11 09:30:00 Outpatient ROMULO BROWNING [facility] [id number] [facility] 2021-10-10 13:30:00 2021-10-10 13:30:00 Outpatient PRASANNA LOOMIS [facility] [id number] [facility] 2021-10-10 13:30:00 2021-10-10 13:30:00 Outpatient PRASANNA LOOMIS [facility] [id number] [facility] 2021-10-10 13:30:00 2021-10-10 13:30:00 Outpatient PRASANNA LOOMIS [facility] [id number] [facility] 2021-10-10 13:30:00 2021-10-10 13:30:00 Outpatient R PRASANNA VARGAS [facility] [id number] [facility] 2021-10-10 13:30:00 2021-10-10 13:30:00 Outpatient R PRASANNA VARGAS [facility] [id number] [facility] 2021-10-10 13:30:00 2021-10-10 13:30:00 Outpatient R PRASANNA VARGAS [facility] [id number] [facility] 2021-10-10 13:30:00 2021-10-10 13:30:00 Outpatient R PRASANNA VARGAS [facility] [id number] [facility] 2021-10-05 00:00:00 2021-10-05 00:00:00 Patient [facility] 1.2.840.114 350.1.13.10 4.2.7.2.686 [id number] [facility] 2021-10-05 00:00:00 2021-10-05 00:00:00 Patient Secure Msg Robb [facility] MED[facility] 1.2.840.114 350.1.13.10 4.2.7.2.686 [id number] [facility] 2021-10-04 00:00:00 2021-10-04 00:00:00 Pre Visit Outreach Melia Rodriguez 1.2.840.114 350.1.13.10 4.2.7.2.686 [id number] [facility] 2021-09-28 13:30:00 2021-09-28 13:45:00 Office Visit Celina Mixon [facility] 1.2.840.114 350.1.13.10 4.2.7.2.686 [id number] [facility] 2021-09-28 13:30:00 2021-09-28 13:30:00 Outpatient Farzana CELINA MIXON [facility] [id number] [facility] 2021-09-28 13:30:00 2021-09-28 13:30:00 Outpatient Farzana CELINA MIXON [facility] [id number] [facility] 2021-09-28 00:00:00 2021-09-28 00:00:00 Patient Secure Celina Zheng [facility] 1.2.840.114 350.1.13.10 4.2.7.2.686 [id number] [facility] 2021-09-27 14:00:00 2021-09-27 14:00:00 Outpatient TETO BRANTLEY [facility] [id number] [facility] 2021-09-27 09:30:00 2021-09-27 09:30:00 Outpatient R DANIA PENNINGTON [facility] [id number] [facility] 2021-09-27 09:30:00 2021-09-27 09:30:00 Outpatient DANIA RICARDO [facility] [id number] [facility] 2021-09-27 09:30:00 2021-09-27 09:30:00 Outpatient DANIA RICARDO [facility] [id number] [facility] 2021-09-26 10:45:00 2021-09-26 10:45:00 Outpatient R CRICKET TAYLOR [facility] [id number] [facility] 2021-09-26 10:45:00 2021-09-26 10:45:00 Outpatient R CRICKET TAYLOR [facility] [id number] [facility] 2021-09-26 00:00:00 2021-09-26 00:00:00 Patient Secure Vijay Caraballo [facility] TO[facility]O?[facility] MED[facility] BUILD[facility] 1.2.840.114 350.1.13.10 4.2.7.2.686 [id number] [facility] 2021-09-26 00:00:00 2021-09-26 00:00:00 Patient Secure Vijay Caraballo [facility] TO[facility]O?[facility] MEDICAL OFF[facility] BUILDING 1.2.840.114 350.1.13.10 4.2.7.2.686 [id number] [facility] 2021-09-25 10:20:00 2021-09-25 11:10:42 [facility]Flaco [facility] 1..840.114 350.1.13.10 4.2.7.2.686 [id number] [facility] 2021-09-25 10:20:00 2021-09-25 11:10:42 Outpatient R FLACO BOYD [facility] [id number] [facility] 2021-09-25 10:20:00 2021-09-25 10:20:00 Outpatient R FLACO BOYD [facility] [id number] [facility] 2021-09-25 10:00:00 2021-09-25 10:00:00 Outpatient R PRASANNA VARGAS [facility] [id number] [facility] 2021-09-25 00:00:00 2021-09-25 00:00:00 Telephone Flaco Boyd [facility] TO[facility]O?[facility] MEDICAL OFF[facility] BUILD[facility] 1.2.840.114 350.1.13.10 4.2.7.2.686 [id number] [facility] 2021-09-25 00:00:00 2021-09-25 00:00:00 Patient Secure Msg Prasanna Vargas [facility] NAL BUILDING 1.2.840.114 350.1.13.10 4.2.7.2.686 [id number] [facility] 2021-09-25 00:00:00 2021-09-25 00:00:[address] [facility] 1.2.840.114 350.1.13.10 4.2.7.2.686 [id number] [facility] 2021-09-25 00:00:00 2021-09-25 00:00:00 Telephone Celina Mixon [facility] 1.2.840.114 350.1.13.10 4.2.7.2.686 [id number] [facility] 2021-09-15 00:00:00 2021-09-15 00:00:00 Patient Secure Msg [facility] MED[facility] BU[facility] 1.2.840.114 350.1.13.10 4.2.7.2.686 [id number] [facility] 2021-09-15 00:00:00 2021-09-15 00:00:00 Patient Secure Msg Kendal [facility] 1.2.840.114 350.1.13.10 4.2.7.2.686 [id number] [facility] 2021-09-15 00:00:00 2021-09-15 00:00:00 Patient Secure Msg Kendal Zamudio [facility] TO[facility]O?[facility] MED[facility] OFF[facility] BU[facility] 1.2840.114 350.1.13.10 4.2.7.2.686 [id number] [facility] 2021-09-14 00:00:00 2021-09-14 00:00:00 Patient Secure Msg Vijay Martinez [facility] TO[facility]O?[facility] MEDICAL OFF[facility] BUILDING 1.2.114 350.1.13.10 4.2.7.2.686 [id number] [facility] 2021-09-14 00:00:00 2021-09-14 00:00:00 Patient Secure Msg Doctor Unassigned, [place] [facility] 1..114 350.1.13.10 4.2.7.2.686 [id number] [facility] 2021-09-12 10:30:00 2021-09-12 10:30:00 Outpatient CELINA STONE [facility] [id number] [facility] 2021-09-12 10:30:00 2021-09-12 10:30:00 Outpatient CELINA STONE [facility] [id number] [facility] 2021-09-12 00:00:00 2021-09-12 00:00:00 Patient Secure Msg Daniel Dsouza [facility] 1.114 350.1.13.10 4.2.7.2.686 [id number] [facility] 2021-09-12 00:00:00 2021-09-12 00:00:00 Orders Only Doctor Unassigned, [place] [facility] 1.0.114 350.1.13.10 4.2.7.2.686 [id number] [facility] 2021-09-12 00:00:00 2021-09-12 00:00:00 Patient Secure Msg Vijay Martinez [facility] TO[facility]O?[facility] MEDICAL OFF[facility] BUILDING 1.0.114 350.1.13.10 4.2.7.2.686 [id number] [facility] 2021-09-05 00:00:00 2021-09-05 00:00:00 Patient Secure Msg Vijay Martinez [facility] 1.840.114 350.1.13.10 4.2.7.2.686 [id number] [facility] 2021-09-05 00:00:00 2021-09-05 00:00:00 Patient Secure Msg Doctor Unassigned, [place] [facility] 1.0.114 350.1.13.10 4.2.7.2.686 [id number] [facility] 2021-09-05 00:00:00 2021-09-05 00:00:00 Patient Secure Msg Doctor Unassigned, [place] [facility] 1.0.114 350.1.13.10 4.2.7.2.686 [id number] [facility] 2021-09-04 00:00:00 2021-09-04 00:00:00 Patient Secure Msg Vijay Martinez [facility] MEDICAL OFF[facility] BUILDING 1.0.114 350.1.13.10 4.2.7.2.686 [id number] [facility] 2021-08-28 00:00:00 2021-08-28 00:00:00 Patient Secure Msg Harsh Charles [facility] 1..114 350.1.13.10 4.2.7.2.686 [id number] [facility] 2021-08-25 00:00:00 2021-08-25 00:00:00 Telephone Dania Pennington [facility] 1..114 350.1.13.10 4.2.7.2.686 [id number] [facility] 2021-08-25 00:00:00 2021-08-25 00:00:00 Patient Secure Msg Vijay [facility] MEDICAL OFF[facility] BUILDING 1.2840.114 350.1.13.10 4.2.7.2.686 [id number] [facility] 2021-08-24 00:00:00 2021-08-24 00:00:00 Telephone Vijay Martinez [facility] MEDICAL OFFICE BUILDING 1.2840.114 350.1.13.10 4.2.7.2.686 [id number] [facility] 2021-08-24 00:00:00 2021-08-24 00:00:00 Patient Secure Msg Vijay Martinez [facility] MEDICAL OFF[facility] BUILDING 1.2840.114 350.1.13.10 4.2.7.2.686 [id number] [facility] 2021-08-23 00:00:00 2021-08-23 00:00:00 Patient Secure Msg Vijay Martinez [facility] MEDICAL OFFICE BUILDING 1.2840.114 350.1.13.10 4.2.7.2.686 [id number] [facility] 2021-08-23 00:00:00 2021-08-23 00:00:00 Telephone Vijay Martinez [facility] MEDICAL OFF[facility] BUILDING 1.2840.114 350.1.13.10 4.2.7.2.686 [id number] [facility] 2021-08-22 00:00:00 2021-08-22 00:00:00 Telephone Vijay Martinez [facility] MEDICAL OFFICE BUILDING 1.2840.114 350.1.13.10 4.2.7.2.686 [id number] [facility] 2021-08-22 00:00:00 2021-08-22 00:00:00 Patient Secure Msg Hallie Wilkinson [facility] TO[facility]O?[facility] MEDICAL OFFICE BUILDING 1.84114 350.1.13.10 4.2.7.2.686 [id number] [facility] 2021-08-18 00:00:00 2021-08-18 00:00:00 Telephone Vijay Martinez [facility] TO[facility]O?[facility] MEDICAL OFFICE BUILDING 1.84.114 350.1.13.10 4.2.7.2.686 [id number] [facility] 2021-08-17 09:00:00 2021-08-17 09:00:00 Outpatient CELINA STONE [facility] [id number] [facility] 2021-08-17 09:00:00 2021-08-17 09:00:00 Outpatient CELINA STONE [facility] [id number] [facility] 2021-08-17 00:00:00 2021-08-17 00:00:00 Patient Secure Msg Prasanna Vargas [facility] NAL BUILDING 1.84.114 350.1.13.10 4.2.7.2.686 [id number] [facility] 2021-08-17 00:00:00 2021-08-17 00:00:00 Patient Secure Msg Vijay Martinez [facility] TO[facility]O?[facility] MEDICAL OFFICE BUILDING 1.84.114 350.1.13.10 4.2.7.2.686 [id number] [facility] 2021-08-17 00:00:00 2021-08-17 00:00:00 Patient Secure Msg Vijay Martinez [facility] 1.2840.114 350.1.13.10 4.2.7.2.686 [id number] [facility] 2021-08-16 00:00:00 2021-08-16 00:00:00 Patient Secure Msg Vijay Martinez [facility] 1.2840.114 350.1.13.10 4.2.7.2.686 [id number] [facility] 2021-08-16 00:00:00 2021-08-16 00:00:00 Patient Secure Msg Doctor Unassigned, [place] [facility] 1.2840.114 350.1.13.10 4.2.7.2.686 [id number] [facility] 2021-08-16 00:00:00 2021-08-16 00:00:00 Patient Secure Msg Vijay Martinez [facility] MEDICAL OFFICE BUILDING 1.2840.114 350.1.13.10 4.2.7.2.686 [id number] [facility] 2021-08-16 00:00:00 2021-08-16 00:00:00 Patient Secure Msg Vijay Martinez [facility] 1.2840.114 350.1.13.10 4.2.7.2.686 [id number] [facility] 2021-08-15 15:30:00 2021-08-15 16:16:42 Office Visit Adán Kim Asim [facility] MEDICAL OFFICE BUILDING 1.2840.114 350.1.13.10 4.2.7.2.686 [id number] [facility] 2021-08-15 15:30:00 2021-08-15 16:16:42 Outpatient ADÁN DIEGO [facility] [id number] [facility] 2021-08-15 15:30:00 2021-08-15 15:30:00 Outpatient Farzana JUDY ADÁN [facility] [id number] [facility] 2021-08-15 15:30:00 2021-08-15 15:30:00 Outpatient ADÁN DIEGO [facility] [id number] [facility] 2021-08-15 15:30:00 2021-08-15 15:30:00 Outpatient ADÁN DIEGO [facility] [id number] [facility] 2021-08-15 09:27:00 2021-08-15 12:26:[address] [facility] ERT [id number] [facility] 2021-08-15 09:27:00 2021-08-15 12:26:00 Emergency Maura Samayoa [facility] 1..840.114 350.1.13.10 4.2.7.2.686 [id number] [facility] 2021-08-15 09:27:00 2021-08-15 12:26:[address] [facility] ERT [id number] [facility] 2021-08-15 00:00:00 2021-08-15 00:00:00 Patient Secure Msg Doctor Unassigned, [place] [facility] 1..840.114 350.1.13.10 4.2.7.2.686 [id number] [facility] 2021-08-14 13:25:00 2021-08-14 23:59:00 Outpatient VIJAY ARAUZ [facility] [id number] [facility] 2021-08-14 13:25:00 2021-08-14 23:59:00 Outpatient VIJAY ARAUZ [facility] [id number] [facility] 2021-08-14 13:25:00 2021-08-14 13:25:00 Outpatient R VIJAY MARTINEZ [facility] [id number] [facility] 2021-08-14 12:19:07 2021-08-14 13:24:00 Outpatient R VIJAY MARTINEZ [facility] [id number] [facility] 2021-08-14 12:19:07 2021-08-14 13:24:00 Outpatient R VIJAY MARTINEZ [facility] [id number] [facility] 2021-08-14 12:30:00 2021-08-14 13:01:24 Doll Wig Maker Visit Lab, Filippo ReneeRichelle cannonHarris [facility] HospitalDAY[facility] MEDICAL OFF[facility] BUILDING 1.2.840.114 350.1.13.10 4.2.7.2.686 [id number] [facility] 2021-08-14 12:30:00 2021-08-14 12:45:00 Doll Wig Maker Visit Lab, Filippo ReneeRichelle cannonHarris [facility] HospitalDAY[facility]?BESSKassandra [facility] MED[facility] OFF[facility] BUILD[facility] 1..840.114 350.1.13.10 4.2.7.2.686 [id number] [facility] 2021-08-14 11:30:00 2021-08-14 12:31:12 Office Visit JuanVijay [facility] MEDICAL OFFICE BUILDING 1.2.840.114 350.1.13.10 4.2.7.2.686 [id number] [facility] 2021-08-14 11:30:00 2021-08-14 12:31:12 Outpatient R VÍCTORVIJAY Cannon [facility] [id number] [facility] 2021-08-14 00:00:00 2021-08-14 00:00:00 Patient Secure Msg Vcítorkassandra [facility] MEDICAL OFFICE BUILDING 1.2.840.114 350.1.13.10 4.2.7.2.686 [id number] [facility] 2021-08-14 00:00:00 2021-08-14 00:00:00 Patient Secure Msg Vijay Martinez [facility] TO[facility]O?[facility] MEDICAL OFFICE BUILDING 1..840.114 350.1.13.10 4.2.7.2.686 [id number] [facility] 2021-08-09 14:45:00 2021-08-09 14:45:00 Outpatient R ADÁN KIM [facility] [id number] [facility] 2021-08-09 00:00:00 2021-08-09 00:00:00 Telephone Vijay Martinez [facility] TO[facility] MEDICAL OFF[facility] BUILDING 1..840.114 350.1.13.10 4.2.7.2.686 [id number] [facility] 2021-08-08 11:30:00 2021-08-08 23:59:00 Outpatient R VÍCTORRICHELLE CannonIE [facility] [id number] [facility] 2021-08-08 11:30:00 2021-08-08 23:59:00 Hospital Encounter Vijay Martinez [facility] TO[facility] MEDICAL OFFICE BUILDING 1..840.114 350.1.13.10 4.2.7.2.686 [id number] [facility] 2021-08-08 11:15:00 2021-08-08 11:15:00 Outpatient R JUANRICHELLEIE [facility] [id number] [facility] 2021-08-08 11:00:00 2021-08-08 11:00:00 Outpatient R JUAN VIJAY [facility] [id number] [facility] 2021-08-08 00:00:00 2021-08-08 00:00:00 Patient Secure Msg Doctor Unassigned, [place] [facility] 1..840.114 350.1.13.10 4.2.7.2.686 [id number] [facility] 2021-08-07 09:30:00 2021-08-07 10:23:21 Office Visit Vijay Martinez [facility] TO[facility]O?[facility] 1.2840.114 350.1.13.10 4.2.7.2.686 [id number] [facility] 2021-08-07 09:30:00 2021-08-07 10:23:21 Outpatient R VIJAY MARTINEZ [facility] [id number] [facility] 2021-08-07 09:30:00 2021-08-07 09:30:00 Outpatient R RICHELLE MARTINEZIE [facility] [id number] [facility] 2021-08-07 00:00:00 2021-08-07 00:00:00 Patient Secure Msg Vijay Martinez [facility] TO[facility] MEDICAL OFFICE BUILDING 1.2.840.114 350.1.13.10 4.2.7.2.686 [id number] [facility] 2021-08-07 00:00:00 2021-08-07 00:00:00 Patient Secure Msg Vijay Martinez [facility] MED[facility] 1.2840.114 350.1.13.10 4.2.7.2.686 [id number] [facility] 2021-08-07 00:00:00 2021-08-07 00:00:00 Patient Secure Msg OnurRichelle daileyCelina A [facility] [place] [facility] 1.2840.114 350.1.13.10 4.2.7.2.686 [id number] [facility] 2021-08-04 10:00:00 2021-08-04 10:00:00 Outpatient R PETRA RENO [facility] [id number] [facility] 2021-08-04 00:00:00 2021-08-04 00:00:00 Patient Secure Msg Vijay Martinez [facility] [id number] 350.1.13.10 4.2.7.2.686 [id number] [facility] 2021-08-03 11:00:00 2021-08-03 12:48:43 Office Visit Jayy Diaz [facility]. 1.2.840.114 350.1.13.10 4.2.7.2.686 [id number] [facility] 2021-08-03 11:00:00 2021-08-03 12:48:43 Outpatient JAYY YANG [facility] [id number] [facility] 2021-08-03 11:00:00 2021-08-03 11:00:00 Outpatient JAYY YANG [facility] [id number] [facility] 2021-08-03 00:00:00 2021-08-03 00:00:00 Patient Secure Celina Zheng [facility] 1..840.114 350.1.13.10 4.2.7.2.686 [id number] [facility] 2021-08-02 00:00:00 2021-08-02 00:00:00 [facility] 1.2.840.114 350.1.13.10 4.2.7.2.686 [id number] [facility] 2021-07-21 08:00:00 2021-07-21 08:52:53 Outpatient DARRION QUIROZ [facility] [id number] [facility] 2021-07-17 11:30:00 2021-07-17 11:30:00 Outpatient VIJAY ARAUZ [facility] [id number] [facility] 2021-07-17 00:00:00 2021-07-17 00:00:00 Patient Secure Msg Vijay Martinez [facility] OFFICE BUILDING 1.2.840.114 350.1.13.10 4.2.7.2.686 [id number] [facility] 2021-06-19 00:00:00 2021-06-19 00:00:00 Telephone Vijay Martinez [facility] TOÑO?[facility] MEDICAL OFFICE BUILDING 1..840.114 350.1.13.10 4.2.7.2.686 [id number] [facility] 2021-06-09 00:00:00 2021-06-09 00:00:00 Telephone [facility] 1..840.114 350.1.13.10 4.2.7.2.686 [id number] [facility] 2021-06-06 11:15:00 2021-06-06 11:15:00 Outpatient Farzana CARNES [facility] [id number] [facility] 2021-06-06 11:15:00 2021-06-06 11:15:00 Outpatient TETO BRANTLEY [facility] [id number] [facility] 2021-06-02 15:45:00 2021-06-02 15:45:00 Outpatient R CLAUDETTE EVANS [facility] [id number] [facility] 2021-05-31 10:00:00 2021-05-31 10:46:31 Outpatient R JUANRICHELLEIE [facility] [id number] [facility] 2021-05-31 10:00:00 2021-05-31 10:46:31 Office Visit VíctorVijay cannon [facility] TOÑO?[facility] MEDICAL OFFICE BUILDING 1.2.840.114 350.1.13.10 4.2.7.2.686 [id number] [facility] 2021-05-31 10:00:00 2021-05-31 10:46:31 Outpatient VIJAY ARAUZ [facility] [id number] [facility] 2021-05-31 00:00:00 2021-05-31 00:00:00 Orders Only Doctor Unassigned, [facility] 1.2.840.114 350.1.13.10 4.2.7.2.686 [id number] [facility] 2021-05-26 00:00:00 2021-05-26 00:00:00 Telephone Skylar Groves [facility] TO[facility] MED[facility] OFFICE BUILDING 1.2.840.114 350.1.13.10 4.2.7.2.686 [id number] [facility] 2021-05-26 00:00:00 2021-05-26 00:00:00 Patient Secure Msg [facility] 1.2.840.114 350.1.13.10 4.2.7.2.686 [id number] [facility] 2021-05-25 14:00:00 2021-05-25 14:30:00 Telemedici ne Visit Skylar Groves [facility] TOÑO?[facility] MEDICAL OFFICE BUILDING 1.2.840.114 350.1.13.10 4.2.7.2.686 [id number] [facility] 2021-05-25 14:00:00 2021-05-25 14:00:00 Outpatient SKYLAR CEBALLOS [facility] [id number] [facility] 2021-05-25 14:00:00 2021-05-25 14:00:00 Outpatient SKYLAR CEBALLOS [facility] [id number] [facility] 2021-05-25 00:00:00 2021-05-25 00:00:00 Patient Secure Msg Skylar Groves [facility] 1.2.840.114 350.1.13.10 4.2.7.2.686 [id number] [id number] [facility] 2021-05-25 00:00:00 2021-05-25 00:00:00 Patient Secure Msg Skylar Groves [facility] TOÑO?[facility] MEDICAL OFFICE BUILDING 1.2.840.114 350.1.13.10 4.2.7.2.686 [id number] [facility] 2021-05-24 00:00:00 2021-05-24 00:00:00 Telephone Rad Serra [facility] BUILDING 1.2.840.114 350.1.13.10 4.2.7.2.686 [id number] [facility] 2021-05-24 00:00:00 2021-05-24 00:00:00 Patient Secure Msg Rad Serra [facility] NAL BUILDING 1.2.840.114 350.1.13.10 4.2.7.2.686 [id number] [facility] 2021-05-24 00:00:00 2021-05-24 00:00:00 Patient Secure Msg Claudette Evans [facility] TOÑO?[facility] MEDICAL OFFICE BUILDING 1.2.840.114 350.1.13.10 4.2.7.2.686 [id number] [facility] 2021-05-23 10:00:00 2021-05-23 10:00:00 Outpatient R [facility] [id number] [facility] 2021-05-23 10:00:00 2021-05-23 10:00:00 Outpatient R [facility] [id number] [facility] 2021-05-23 00:00:00 2021-05-23 00:00:00 Patient Secure Claudette Hinds [facility] TOÑO?[facility] MED[facility] OFFICE BUILDING 1..840.114 350.1.13.10 4.2.7.2.686 [id number] [facility] 2021-05-16 09:00:00 2021-05-16 09:00:00 Outpatient R TETO CARNES [facility] [id number] [facility] 2021-05-12 00:00:00 2021-05-12 00:00:00 Orders Only Doctor Unassigned, [facility] 1..840.114 350.1.13.10 4.2.7.2.686 [id number] [facility] 2021-05-10 13:00:00 2021-05-10 13:00:00 Outpatient CARMELINA CEDILLOANITRA [facility] [id number] [facility] 2021-05-10 13:00:00 2021-05-10 13:00:00 Outpatient CARMELINA CEDILLOANITRA [facility] [id number] [facility] 2021-05-09 00:00:00 2021-05-09 00:00:00 Telephone Prasanna Vargas [facility] BUILDING 1..840.114 350.1.13.10 4.2.7.2.686 [id number] [facility] 2021-05-09 00:00:00 2021-05-09 00:00:00 Patient Secure Rad Serra [facility] BUILDING 1..840.114 350.1.13.10 4.2.7.2.686 [id number] [facility] 2021-05-08 16:00:00 2021-05-08 16:00:00 Outpatient JE CRABTREE [facility] [id number] [facility] 2021-05-08 16:00:00 2021-05-08 16:00:00 Outpatient JE CRABTREE [facility] [id number] [facility] 2021-05-08 00:00:00 2021-05-08 00:00:00 Patient Secure Msg Cornelius Serrazohra [facility] 1.2.840.114 350.1.13.10 4.2.7.2.686 [id number] [facility] 2021-05-08 00:00:00 2021-05-08 00:00:00 Patient Secure g Rad SerraPilarPauloPilar [facility] BUILDING 1.2.840.114 350.1.13.10 4.2.7.2.686 [id number] [facility] 2021-05-04 00:00:00 2021-05-04 00:00:00 Patient Secure g Rad SerraPilarPauloPilar [facility] NAL BUILDING 1.2.840.114 350.1.13.10 4.2.7.2.686 [id number] [facility] 2021-05-04 00:00:00 2021-05-04 00:00:00 Patient Secure Reji [facility] 1.2.840.114 350.1.13.10 4.2.7.2.686 [id number] [facility] 2021-05-03 11:15:36 2021-05-03 23:59:00 Outpatient REJI COOPER [facility] [id number] [facility] 2021-05-03 11:15:36 2021-05-03 23:59:00 Hospital Encounter Reji Díaz [facility] BUILDING 1.2840.114 350.1.13.10 4.2.7.2.686 [id number] [facility] 2021-05-03 00:00:00 2021-05-03 00:00:00 Telephone Claudette Evans [facility] TOÑO?[facility] MEDICAL OFFICE BUILDING 1.2840.114 350.1.13.10 4.2.7.2.686 [id number] [facility] 2021-05-02 00:00:00 2021-05-02 00:00:00 Telephone Rad Serra.HPilar [facility] BUILDING 1.2840.114 350.1.13.10 4.2.7.2.686 [id number] [facility] 2021-05-02 00:00:00 2021-05-02 00:00:00 Patient Secure Msg Claudette Evans [facility] TOÑO?[facility] MEDICAL OFFICE BUILDING 1.2840.114 350.1.13.10 4.2.7.2.686 [id number] [facility] 2021-05-02 00:00:00 2021-05-02 00:00:00 Telephone Claudette Evans [facility] TOÑO?[facility] MEDICAL OFFICE BUILDING 1.2840.114 350.1.13.10 4.2.7.2.686 [id number] [facility] 2021-05-02 00:00:00 2021-05-02 00:00:00 Patient Secure Msg Rad Serra [facility] BUILDING 1.2840.114 350.1.13.10 4.2.7.2.686 [id number] [facility] 2021-05-02 00:00:00 2021-05-02 00:00:00 Patient Secure Claudette Hinds [facility] TOÑO?[facility] MEDICAL OFFICE BUILDING 1.114 350.1.13.10 4.2.7.2.686 [id number] [facility] 2021-04-28 00:00:00 2021-04-28 00:00:00 Patient Secure Claudette Hinds [facility] TOÑO?[facility] MEDICAL OFFICE BUILDING 1.84114 350.1.13.10 4.2.7.2.686 [id number] [facility] 2021-04-27 14:24:00 2021-04-27 15:49:00 Emergency X MAGGIE HAMILTON [facility] ERT [id number] [facility] 2021-04-27 14:24:00 2021-04-27 15:49:00 Emergency Maggie Hamilton [facility] 1.114 350.1.13.10 4.2.7.2.686 [id number] [facility] 2021-04-27 11:15:00 2021-04-27 11:30:00 Laboratory Only Only, Ang Db Test Unknown, Attending Thony Johnson [facility] MEDICAL OFFICE BUILDING 1.84114 350.1.13.10 4.2.7.2.686 [id number] [facility] 2021-04-27 11:15:00 2021-04-27 11:15:00 Outpatient R THONY JOHNSON [facility] [id number] [facility] 2021-04-27 00:00:00 2021-04-27 00:00:00 Orders Only Doctor Unassigned, [facility] 1.84.114 350.1.13.10 4.2.7.2.686 [id number] [facility] 2021-04-20 15:00:00 2021-04-20 15:00:00 Outpatient EDER RENEE [facility] [id number] [facility] 2021-04-13 00:00:00 2021-04-13 00:00:00 Patient Secure Msg [facility] OFF[facility] BUILD[facility] 1.2.840.114 350.1.13.10 4.2.7.2.686 [id number] [facility] 2021-04-12 00:00:00 2021-04-12 00:00:00 Telephone Claudette Evans [facility] TOÑO?[facility] BUILDING 1.2.840.114 350.1.13.10 4.2.7.2.686 [id number] [facility] 2021-03-27 00:00:00 2021-03-27 00:00:00 Telephone Prasanna Vargas [facility] BUILDING 1.2.840.114 350.1.13.10 4.2.7.2.686 [id number] [facility] 2021-03-24 00:00:00 2021-03-24 00:00:00 Patient Secure Msg Doctor Unassigned, [facility] 1.2840.114 350.1.13.10 4.2.7.2.686 [id number] [facility] 2021-03-23 13:30:00 2021-03-23 13:30:00 Outpatient PINO AGUIAR [facility] [id number] [facility] 2021-03-23 13:30:00 2021-03-23 13:30:00 Outpatient R PINO HOFF [facility] [id number] [facility] 2021-03-22 09:20:00 2021-03-22 09:20:00 Outpatient R JEANNA, STRAHIL ATAMARIA LUZ, STRAHIL [facility] [id number] [facility] 2021-03-22 09:20:00 2021-03-22 09:20:00 Outpatient R ATAGERARDOOV, STRAHIL ATANASOV, STRAHIL [facility] [id number] [facility] 2021-03-20 00:00:00 2021-03-20 00:00:00 Outpatient R CLAUDETTE EVANS [facility] [id number] [facility] 2021-03-18 00:00:00 2021-03-18 00:00:00 Case Management CristinaClaudette ibrahim [facility] MEDICAL OFFICE BUILDING 1.2.840.114 350.1.13.10 4.2.7.2.686 [id number] [facility] 2021-03-16 11:16:07 2021-03-16 11:31:07 Doll Wig Maker Visit Lab, Ang - Db CristinaClaudette ibrahim [facility] MEDICAL OFFICE BUILDING 1.2.840.114 350.1.13.10 4.2.7.2.686 [id number] [facility] 2021-03-16 11:30:00 2021-03-16 11:30:00 Outpatient R CLAUDETTE EVANS [facility] [id number] [facility] 2021-03-16 11:00:00 2021-03-16 11:14:45 Outpatient R CLAUDETTE EVANS [facility] [id number] [facility] 2021-03-16 10:00:58 2021-03-16 11:14:45 Office Visit Claudette Evans [facility] LULU [place]?[facility] MEDICAL OFFICE BUILDING 1.2.840.114 350.1.13.10 4.2.7.2.686 [id number] [facility] 2021-03-16 00:00:00 2021-03-16 00:00:00 Patient Secure Msg Claudette Evans [facility] TOÑO?[facility] MEDICAL OFFICE BUILDING 1.2.840.114 350.1.13.10 4.2.7.2.686 [id number] [facility] 2021-03-02 16:15:00 2021-03-02 16:15:00 Outpatient R CRISTINACARMELINA IBRAHIMTAINAANITRA [facility] [id number] [facility] 2021-02-28 18:30:00 2021-02-28 18:30:00 Outpatient R ILEANA MEDRANO [facility] [id number] [facility] 2021-02-28 00:00:00 2021-02-28 00:00:00 Telephone Claudette Evans [facility] Toño?[facility] Medical Office Building 1..840.114 350.1.13.10 4.2.7.2.686 [id number] [facility] 2021-02-27 09:00:00 2021-02-27 09:00:00 Outpatient R AMELIA HAMMOND [facility] [id number] [facility] 2021-02-23 00:00:00 2021-02-23 00:00:00 Telephone Claudette Evans [facility] 1.2.840.114 350.1.13.10 4.2.7.2.686 [id number] [facility] 2021-02-10 18:12:00 2021-02-10 23:39:00 Emergency Kaycee Méndez [facility] 1..840.114 350.1.13.10 4.2.7.2.686 [id number] [facility] 2021-02-10 00:00:00 2021-02-10 00:00:00 Patient Secure Msg [place], [place] Kassandra [facility] ANGLEDAYAMI FOFANAE?[facility] MEDICAL OFFICE BUILDING 1.2.840.114 350.1.13.10 4.2.7.2.686 [id number] [facility] 2021-02-10 00:00:00 2021-02-10 00:00:00 Patient Secure Msg Branden Evansful Kassandra [facility] ANGLEDAYAMI FOFANAE?[facility] MEDICAL OFFICE BUILDING 1.2.840.114 350.1.13.10 4.2.7.2.686 [id number] [facility] 2021-02-10 00:00:00 2021-02-10 00:00:00 Patient Secure Msg Branden Evansful Kassandra [facility] ANGLEDAYAMI [facility]G?[facility] MEDICAL OFFICE BUILDING 1.2840.114 350.1.13.10 4.2.7.2.686 [id number] [facility] 2021-02-10 00:00:00 2021-02-10 00:00:00 Patient Secure Msg Branden Evansful Kassandra [facility] ANGLEDAYAMI FOFANAE?[facility] MEDICAL OFFICE BUILDING 1.2.840.114 350.1.13.10 4.2.7.2.686 [id number] [facility] 2021-02-09 13:40:00 2021-02-09 23:59:00 Hospital Encounter Claudette Evans [facility] Dave?T[facility] Medical Office Building 1.2.840.114 350.1.13.10 4.2.7.2.686 [id number] [facility] 2021-02-09 13:49:05 2021-02-09 14:04:05 Doll Wig Maker Visit Lab, Filippo - [place] Claudette Evans [facility] Toño?[facility] Building 1.2.840.114 350.1.13.10 4.2.7.2.686 [id number] [facility] 2021-02-09 12:23:13 2021-02-09 13:47:12 Office [facility] Medical Office Building 1..840.114 350.1.13.10 4.2.7.2.686 [id number] [facility] 2021-02-09 13:00:00 2021-02-09 13:00:00 Outpatient R CLAUDETTE EVANS [facility] [id number] [facility] 2021-02-09 00:00:00 2021-02-09 00:00:00 Patient Secure Msg Doctor Unassigned, [facility] 1.840.114 350.1.13.10 4.2.7.2.686 [id number] [facility] 2021-02-08 10:20:00 2021-02-08 10:20:00 Outpatient R ADITYA MEEKS STRAHIL [facility] [id number] [facility] 2021-02-07 00:00:00 2021-02-07 00:00:00 Patient Secure Msg Claudette Evans [facility] MEDICAL OFFICE BUILDING 1..840.114 350.1.13.10 4.2.7.2.686 [id number] [facility] 2021-02-02 10:30:00 2021-02-02 10:30:00 Outpatient R SKYLAR GROVES [facility] [id number] [facility] 2021-02-02 00:00:00 2021-02-02 00:00:00 Telephone Claud[facility] Medical Office Building 1..840.114 350.1.13.10 4.2.7.2.686 [id number] [facility] 2021-02-01 08:30:00 2021-02-01 08:30:00 Outpatient R SKYLAR GROVES [facility] [id number] [facility] 2021-01-31 18:44:04 2021-01-31 19:41:26 Urgent Care [facility] Toño?[facility] Medical Office Building 1.84.114 350.1.13.10 4.2.7.2.686 [id number] [facility] 2021-01-31 19:00:00 2021-01-31 19:00:00 Outpatient R FLACO BOYD [facility] [id number] [facility] 2021-01-31 00:00:00 2021-01-31 00:00:00 Telephone Claudette Evans Kassandra [facility] Toño?[facility] Medical Office Building 1.84.114 350.1.13.10 4.2.7.2.686 [id number] [facility] 2021-01-31 00:00:00 2021-01-31 00:00:00 Patient Secure Msg Claudette Evans [facility] TOÑO?[facility] MEDICAL OFFICE BUILDING 1.84.114 350.1.13.10 4.2.7.2.686 [id number] [facility] 2021-01-30 00:00:00 2021-01-30 00:00:00 Telephone Rad Serra [facility] Building 1.84.114 350.1.13.10 4.2.7.2.686 [id number] [facility] 2021-01-30 00:00:00 2021-01-30 00:00:00 Patient Secure Msg Claudette Evans [facility] ONE .114 350.1.13.10 4.2.7.2.686 [id number] [facility] 2021-01-26 14:00:00 2021-01-26 14:00:00 Outpatient R RAD SERRA [facility] [id number] [facility] 2021-01-26 00:00:00 2021-01-26 00:00:00 Patient Secure Skylar Wu [facility] TOÑO?[facility] MEDICAL OFFICE BUILDING 1.2.840.114 350.1.13.10 4.2.7.2.686 [id number] [facility] 2021-01-25 15:00:00 2021-01-25 15:00:00 Outpatient R [facility] [id number] [facility] 2021-01-21 00:00:00 2021-01-21 00:00:00 Patient Secure Skylar Wu [facility] TOÑO?[facility] MEDICAL OFFICE BUILDING 1.2.840.114 350.1.13.10 4.2.7.2.686 [id number] [facility] 2021-01-20 16:51:22 2021-01-20 17:12:41 Telemedici ne Visit Skylar Groves [facility] Medical Office Building 1.2.840.114 350.1.13.10 4.2.7.2.686 [id number] [facility] 2021-01-20 16:30:00 2021-01-20 16:30:00 Outpatient R SKYLAR GROVES [facility] [id number] [facility] 2021-01-19 10:15:00 2021-01-19 10:15:00 Outpatient R KAYLEY GARCÍA [facility] [id number] [facility] 2021-01-14 00:00:00 2021-01-14 00:00:00 Case Management Kassandra Robledo [facility] 1.2.840.114 350.1.13.10 4.2.7.2.686 [id number] [facility] 2021-01-14 00:00:00 2021-01-14 00:00:00 Patient Secure Msg Doctor Unassigned, [facility] 1.2840.114 350.1.13.10 4.2.7.2.686 [id number] [facility] 2021-01-12 16:10:00 2021-01-12 19:45:00 Emergency Karin Matthews [facility] 1.2.840.114 350.1.13.10 4.2.7.2.686 [id number] [facility] 2021-01-12 15:20:00 2021-01-12 15:20:00 Outpatient ILEANA CASE [facility] [id number] [facility] 2021-01-12 14:46:57 2021-01-12 15:06:57 Urgent Care Thony Johnson [facility] [place] Medical Office Building 1..840.114 350.1.13.10 4.2.7.2.686 [id number] [facility] 2020-12-26 15:30:00 2020-12-26 16:13:32 Outpatient RAD MATAMOROS [facility] [id number] [facility] 2020-12-26 15:30:00 2020-12-26 16:13:32 Office Visit Rad Serra [facility] PROFESSIO NAL BUILDING 1..840.114 350.1.13.10 4.2.7.2.686 [id number] [facility] 2020-12-26 15:00:32 2020-12-26 16:13:32 Office Visit Rad Serra [facility] Building 1.2.840.114 350.1.13.10 4.2.7.2.686 [id number] [facility] 2020-12-26 15:30:00 2020-12-26 15:30:00 Outpatient RAD MATAMOROS [facility] [id number] [facility] 2020-11-29 00:00:00 2020-11-29 00:00:00 Patient Secure Msg Serra Rad Cuello [facility] 1.2.840.114 350.1.13.10 4.2.7.2.686 [id number] [facility] 2020-11-22 11:00:00 2020-11-22 11:00:00 Outpatient CELINA STONE [facility] [id number] [facility] 2020-11-10 18:42:46 2020-11-10 19:53:43 Urgent Care Alissa Collins [facility] Office Building [facility] 1.2.840.114 350.1.13.10 4.2.7.2.686 [id number] 2020-11-10 19:00:00 2020-11-10 19:00:00 Outpatient R [facility] [id number] [facility] 2020-10-31 18:52:00 2020-10-31 22:15:00 Emergency Kaycee Méndez [facility] 1.2.840.114 350.1.13.10 4.2.7.2.686 [id number] 2020-10-31 19:00:00 2020-10-31 19:00:00 Outpatient R CARI KAUR [facility] [id number] [facility] 2020-10-31 00:00:00 2020-10-31 00:00:00 Orders Only Doctor Unassigned, [facility] 1.2.840.114 350.1.13.10 4.2.7.2.686 [id number] 2020-10-20 14:02:00 2020-10-20 17:13:00 Emergency Kaycee Méndez [facility] 1.2.840.114 350.1.13.10 4.2.7.2.686 [id number] 2020-10-18 00:00:00 2020-10-18 00:00:00 Patient Secure Msg Prasanna Vargas [facility] 1.2.840.114 350.1.13.10 4.2.7.2.686 [id number] [facility] 2020-10-14 10:00:00 2020-10-14 23:59:00 Hospital Encounter Prasanna Vargas [facility] 1.2.840.114 350.1.13.10 4.2.7.2.686 [id number] 2020-10-14 13:30:00 2020-10-14 13:30:00 Outpatient CELINA STONE [facility] [id number] [facility] 2020-10-11 00:00:00 2020-10-11 00:00:00 Patient Secure Msg Prasanna Vargas [facility] 1.2.840.114 350.1.13.10 4.2.7.2.686 [id number] [facility] 2020-10-11 00:00:00 2020-10-11 00:00:00 Patient Secure Msg Prasanna Vargas [facility] 1.2.840.114 350.1.13.10 4.2.7.2.686 [id number] 134 [id number] [facility] 2020-10-09 12:00:00 2020-10-09 15:57:00 Emergency Anna Kim [facility] 1.2.840.114 350.1.13.10 4.2.7.2.686 [id number] 2020-10-07 00:00:00 2020-10-07 00:00:00 Patient Secure g [facility] 1.2.840.114 350.1.13.10 4.2.7.2.686 [id number] 134 [id number] [facility] 2020-10-07 00:00:00 2020-10-07 00:00:00 Patient Secure g Prasanna Vargas [facility] 1.2.840.114 350.1.13.10 4.2.7.2.686 [id number] [facility] 2020-10-07 00:00:00 2020-10-07 00:00:00 Patient Secure Msg Prasanna Vargas [facility] 1.2.840.114 350.1.13.10 4.2.7.2.686 [id number] [facility] 2020-10-07 00:00:00 2020-10-07 00:00:00 Patient Secure Msg Prasanna Vargas [facility] 1.2.840.114 350.1.13.10 4.2.7.2.686 [id number] [facility] 2020-10-07 00:00:00 2020-10-07 00:00:00 Patient Secure M[facility] 1.2.840.114 350.1.13.10 4.2.7.2.686 [id number] 134 [id number] [facility] 2020-10-07 00:00:00 2020-10-07 00:00:00 Patient Secure Msg [facility] 1.2.840.114 350.1.13.10 4.2.7.2.686 [id number] 134 [id number] [facility] 2020-10-07 00:00:00 2020-10-07 00:00:00 Patient Secure Msg [facility] 1.2.840.114 350.1.13.10 4.2.7.2.686 [id number] 134 [id number] [facility] 2020-10-06 08:53:00 2020-10-06 09:46:44 Office Visit Prasanna Vargas [facility] Building 1.2.840.114 350.1.13.10 4.2.7.2.686 [id number] 2020-10-06 09:30:00 2020-10-06 09:30:00 Outpatient R PRASANNA VARGAS [facility] [id number] [facility] 2020-10-04 14:00:00 2020-10-04 14:00:00 Outpatient CELINA STONE [facility] [id number] [facility] 2020-09-30 10:30:00 2020-09-30 10:30:00 Outpatient CELINA STONE [facility] [id number] [facility] 2020-09-29 13:45:00 2020-09-29 13:45:00 Outpatient PREET KRISHNA [facility] [id number] [facility] 2020-09-06 15:30:00 2020-09-06 15:30:00 Outpatient PRASANNA LOOMIS [facility] [id number] [facility] 2020-09-05 00:00:00 2020-09-05 00:00:00 [facility] 1.2.840.114 350.1.13.10 4.2.7.2.686 [id number] 134 [id number] [facility] 2020-09-02 15:40:00 2020-09-02 15:40:00 Outpatient DARRION QUIROZ HOWARD [facility] [id number] [facility] 2020-08-31 10:30:00 2020-08-31 10:30:00 Outpatient RAD MATAMOROS [facility] [id number] [facility] 2020-08-31 00:00:00 2020-08-31 00:00:00 [facility] 1.2.840.114 350.1.13.10 4.2.7.2.686 [id number] 134 [id number] [facility] 2020-08-18 09:30:00 2020-08-18 09:30:00 Outpatient PRASANNA LOOMIS [facility] [id number] [facility] 2020-08-11 13:30:00 2020-08-11 13:30:00 Outpatient PRASANNA LOOMIS [facility] [id number] [facility] 2020-08-04 14:00:00 2020-08-04 14:00:00 Outpatient EDER RENEE [facility] [id number] [facility] 2020-07-28 10:30:00 2020-07-28 10:30:00 Outpatient RAD MATAMOROS [facility] [id number] [facility] 2020-06-30 16:15:00 2020-06-30 16:15:00 Outpatient CLAUDETTE CEDILLO [facility] [id number] [facility] 2020-06-17 15:00:00 2020-06-17 15:00:00 Outpatient DARRION QUIROZ [facility] [id number] [facility] 2020-06-16 15:30:00 2020-06-16 15:30:00 Outpatient RAD MATAMOROS [facility] [id number] [facility] 2020-06-09 12:30:00 2020-06-09 12:30:00 Outpatient NI YUNG [facility] [id number] [facility] 2020-06-08 08:00:00 2020-06-08 08:00:00 Outpatient NI YUNG [facility] [id number] [facility] 2020-06-02 09:00:00 2020-06-02 09:00:00 Outpatient R RAD SERRA [facility] [id number] [facility] 2020-05-28 10:00:00 2020-05-28 10:00:00 Outpatient R CARI KAUR [facility] [id number] [facility] 2020-05-26 00:00:00 2020-05-26 00:00:00 Patient Secure Msg Claudette Evans [facility] 1.2.840.114 350.1.13.10 4.2.7.2.686 [id number] [facility] 2020-05-24 10:00:00 2020-05-24 10:00:00 Outpatient NI YUNG [facility] [id number] [facility] 2020-05-24 00:00:00 2020-05-24 00:00:00 Patient Secure Msg Doctor Unassigned, [place] [facility] 1.2.840.114 350.1.13.10 4.2.7.2.686 [id number] [facility] 2020-05-19 16:30:00 2020-05-19 16:30:00 Outpatient OSITO AMARO [facility] [id number] [facility] 2020-05-17 13:00:00 2020-05-17 13:00:00 Outpatient DARRION QUIROZ HOWARD [facility] [id number] [facility] 2020-05-16 16:00:00 2020-05-16 16:00:00 Outpatient R CLAUDETTE EVANS [facility] [id number] [facility] 2020-05-09 00:00:00 2020-05-09 00:00:00 Patient Secure Carmelina Hindskacey [facility] ..840.114 350.1.13.10 4.2.7.2.686 [id number] [facility] 2020-05-08 10:24:00 2020-05-08 13:03:[address] X OLAMIDE GARVIN [facility] ERT [id number] [facility] 2020-05-03 15:00:00 2020-05-03 15:00:00 [id number] [facility] 2020-04-30 11:14:00 2020-05-01 15:50:00 Outpatient X RODRIGUEZ HOFF [facility] [id number] [facility] 2020-04-30 10:20:00 2020-04-30 10:20:00 Outpatient R ROSALES SHAY [facility] [id number] [facility] 2020-04-30 10:15:00 2020-04-30 10:15:00 Outpatient R ROSALES SHAY [facility] [id number] [facility] 2020-04-29 00:00:00 2020-04-29 00:00:00 Patient Secure g Osito Hitchcock [facility] ..840.114 350.1.13.10 4.2.7.2.686 [id number] [facility] [id number] [facility] 2020-04-28 14:00:00 2020-04-28 14:00:00 Outpatient R OSITO HITCHCOCK [facility] [id number] [facility] 2020-04-25 16:15:00 2020-04-25 16:15:00 Outpatient R CLAUDETTE EVANS [facility] [id number] [facility] 2020-04-22 00:00:00 2020-04-22 00:00:00 Patient Secure Msg Eder Fletcher [facility] 1.2.840.114 350.1.13.10 4.2.7.2.686 [id number] [facility] 2020-04-18 10:00:00 2020-04-18 10:00:00 Outpatient OSITO AMARO [facility] [id number] [facility] 2020-04-15 10:30:00 2020-04-15 10:30:00 Outpatient R RAD SERRA [facility] [id number] [facility] 2020-04-12 13:38:00 2020-04-13 16:25:00 [facility] [id number] [facility] 2020-03-17 16:15:00 2020-03-17 16:15:00 Outpatient TETO BRANTLEY [facility] [id number] [facility] 2020-03-04 00:00:00 2020-03-04 00:00:00 Mando Hitchcock Os[facility] .2.840.114 350.1.13.10 4.2.7.2.686 [id number] 2020-02-25 16:00:00 2020-02-25 16:00:00 Outpatient OSITO AMARO [facility] [id number] [facility] 2020 14:00:00 2020 14:00:00 Outpatient TETO BRANTLEY [facility] [id number] [facility] 2020-02-08 10:30:00 2020-02-08 10:30:00 Outpatient R PRASANNA VARGAS [facility] [id number] [facility] 2020-02-05 00:00:00 2020-02-05 00:00:00 Patient Secure M[facility] 1..840.114 350.1.13.10 4.2.7.2.686 [id number] 134 [id number] [facility] 2020-02-04 13:30:00 2020-02-04 13:30:00 Outpatient R JACK, OSITO [facility] [id number] [facility] 2020-01-23 10:15:00 2020-01-23 10:15:00 Outpatient R [facility] [id number] [facility] 2020-01-21 13:00:00 2020-01-21 13:00:00 Outpatient R JACK, OSITO [facility] [id number] [facility] 2020-01-14 16:00:00 2020-01-14 16:00:00 Outpatient R JACK OSITO [facility] [id number] [facility] 2020-01-05 13:45:00 2020-01-05 13:45:00 Outpatient R PRASANNA VARGAS [facility] [id number] [facility] 2020-01-05 00:00:00 2020-01-05 00:00:00 Patient Secure Msg Prasanna Vargas [facility] 1..840.114 350.1.13.10 4.2.7.2.686 [id number] [facility] 2019-12-03 10:30:00 2019-12-03 10:30:00 Outpatient R CRICKET TAYLOR [facility] [id number] [facility] 2019-11-27 11:00:00 2019-11-27 11:00:00 Outpatient R TETO CARNES [facility] [id number] [facility] 2019-11-26 00:00:00 2019-11-26 00:00:00 Patient Secure Msg Doctor Unassigned, [place] [facility] 1..840.114 350.1.13.10 4.2.7.2.686 [id number] [facility] 2019-11-25 08:00:2019-11-25 08:00:00 Outpatient R DEYVI TETO [facility] [id number] [facility] 2019-11-23 00:00:00 2019-11-23 00:00:00 Patient Secure Msg Doctor Unassigned, [place] [facility] 1.2.840.114 350.1.13.10 4.2.7.2.686 [id number] [facility] 2019-11-18 10:00:00 2019-11-18 10:00:00 Outpatient Farzana CARNES TETO [facility] [id number] [facility] 2019-11-17 00:00:00 2019-11-17 00:00:00 Patient Secure Msg Doctor Unassigned, [place] [facility] 1.2.840.114 350.1.13.10 4.2.7.2.686 [id number] [facility] 2019-11-13 00:00:00 2019-11-13 00:00:00 Patient Secure Msg Prasanna Vargas [facility] 1.2.840.114 350.1.13.10 4.2.7.2.686 [id number] [facility] 2019-09-02 11:00:00 2019-09-02 11:00:00 Outpatient R CRICKET TAYLOR [facility] [id number] [facility] 2019-08-14 10:15:00 2019-08-14 10:15:00 Outpatient TETO BRANTLEY [facility] [id number] [facility] 2019-08-13 11:00:00 2019-08-13 11:00:00 Outpatient R CRICKET TAYLOR [facility] [id number] [facility] 2019-08-12 09:00:00 2019-08-12 09:00:00 Outpatient R [facility] [id number] [facility] 2019-07-20 16:06:00 2019-07-20 16:06:[address] [facility] [id number] [facility] 2019-07-20 08:15:00 2019-07-20 08:15:00 Outpatient R CRICKET TAYLOR [facility] [id number] [facility] 2019-07-13 08:00:00 2019-07-13 08:00:00 Outpatient R CRICKET TAYLOR [facility] [id number] [facility] 2019-07-12 13:39:00 2019-07-12 13:39:[address] [facility] [id number] [facility] 2019-07-06 13:00:00 2019-07-06 13:00:00 Outpatient R CRICKET TAYLOR [facility] [id number] [facility] 2019-06-13 10:40:46 2019-06-13 12:35:00 Emergency X SARAHI AVILA [facility] ERT [id number] [facility] 2019-05-13 23:07:00 2019-05-14 09:15:[address] [facility] [id number] [facility] Results Test Description Test Time Test Comments Results Result Co [facility]ments [facility]24* Test Item Value Reference Range Interpretation Comme nts LIPASE (test code = 2051556410) 40 U/L 0-220 Lab Interpretation (test cod e = 48740-6) [facility] [id number] 16:27:28EXAM: CT ABDOMEN PELVIS W CONTRAST HISTORY: [...] hypodensity isseen within the right gluteal soft tissue.[facility] CBC WITH [id number] 16:14:18* Test Item Value Reference Range Interpretation Comme nts WBC (test code = 6690-2) 6.32 See_Comment [Automated [employer]] The system which generated this result transmitted reference range: 4.30 - 11.10 10*3/?L. The reference range was not used to interpret this result as normal/abnormal. RBC (test code = 789-8) 4.61 See_Comment [Automated [employer]] The system which generated this result transmitted [...] 34.1 g/dL 31.6-35.1 RDW-SD (test code = 72489-0) 42.0 fL 39.0-49.9 RDW-CV (test code = 788-0) 13.0 % 12.0-15.5 PLT (test code = 777-3) 369 See_Comment H [Automated messa ge] The system which generated this result transmitted reference range: 166 - 358 10*3/?L. The reference range was not used to interpret this result as normal/abnormal. MPV (test code = 75630-1) 9.9 fL 9.5-12.9 NRBC/100 WBC (test code = 3644518964) 0.0 See_Comment [Automated [employer] ssage] The system which generated this result transmitted reference range: 0.0 - 10.0 /100 WBCs. The reference range was not used to interpret this result as normal/abnormal. NRBC x10^3 (test code = 2916023958) See_Comment [Automated messa ge] The system which generated this result transmitted reference range: 10*3/?L. The reference range was not used to interpret this result as normal/abnormal. GRAN MAT (NEUT) % (test code = 770-8) 64.8 % IMM GRAN % (test code = 7583488836) 0.50 % LYMPH % (test code = 736-9) 25.3 % MONO % (test code = 5905-5) 4.1 % EOS % (test code = 713-8) 4.7 % BASO % (test code = 706-2) 0.6 % GRAN MAT x10^3(ANC) (test code = 6824799974) 4.09 10*3/uL 1.88-7.09 IMM GRAN x10^3 (test code = 4454309682) 0.03 10*3/uL 0.00-0.06 LYMPH x10^3 (test code = 731-0) 1.60 10*3/uL 1.32-3.29 MONO x10^3 (test code = 742-7) 0.26 10*3/uL 0.33-0.92 L EOS x10^3 (test code = 711-2) 0.30 10*3/uL 0.03-0.39 BASO x10^3 (test code = 704-7) 0.04 10*3/uL 0.01-0.07 Lab Interpretation (test code = 37624-9) [facility] [id number] 15:31:00* Test Item Value Reference Range Interpretation Comme nts POCT PREG (test code = 1605) Negative On board controls acceptable with C Line (test code = 3574) Yes POCT PREG LOT # (test code = 3575) [id number] POCT PREG TEST DATE ( test code = 3576) 2024-07-21 Lab Interpretation (test cod e = 82147-0) Normal [facility] WITH [id number] 04:28:47* Test Item Value Reference Range Interpretation [...] 34.0 g/dL 31.6-35.1 RDW-SD (test code = 03962-4) 40.3 fL 39.0-49.9 RDW-CV (test code = 788-0) 13.1 % 12.0-15.5 PLT (test code = 777-3) 307 See_Comment [Automated messa ge] The system which generated this result transmitted reference range: 166 - 358 10*3/?L. The reference range was not used to interpret this result as normal/abnormal. MPV (test code = 44525-5) 11.0 fL 9.5-12.9 NRBC/100 WBC (test code = 0288491978) 0.0 See_Comment [Automated me ssage] The system which generated this result transmitted reference range: 0.0 - 10.0 /100 WBCs. The reference range was not used to interpret this result as normal/abnormal. NRBC x10^3 (test code = 1800466833) See_Comment [Automated messa ge] The system which generated this result transmitted reference range: 10*3/?L. The reference range was not used to interpret this result as normal/abnormal. GRAN MAT (NEUT) % (test code = 770-8) 52.0 % IMM GRAN % (test code = 6149083864) 0.20 % LYMPH % (test code = 736-9) 38.0 % MONO % (test code = 5905-5) 4.6 % EOS % (test code = 713-8) 4.6 % BASO % (test code = 706-2) 0.6 % GRAN MAT x10^3(ANC) (test code = 3181596518) 2.84 10*3/uL 1.88-7.09 IMM GRAN x10^3 (test code = 7243727990) 0.00-0.06 LYMPH x10^3 (test code = 731-0) 2.07 10*3/uL 1.32-3.29 MONO x10^3 (test code = 742-7) 0.25 10*3/uL 0.33-0.92 L EOS x10^3 (test code = 711-2) 0.25 10*3/uL 0.03-0.39 BASO x10^3 (test code = 704-7) 0.03 10*3/uL 0.01-0.07 Lab Interpretation (test code = 86418-3) Abnormal [facility]. METABOLIC PANEL (03722)2023-01-12 04:12:43* Test Item Value Reference Range Interpretation Comme nts NA (test code = 8697163882) 137 mmol/L 135-145 K (test code = 5443035252) 3.4 mmol/L 3.5-5.0 L CL (test code = 9303458592) 104 mmol/L 98-108 CO2 TOTAL (test code = 1525350277) 24 mmol/L 23-31 AGAP (test code = 5972899189) 9 2-16 BUN (test code = 7282059809) 2 mg/dL 7-23 L GLUCOSE (test code = 4375530554) 92 mg/dL 70-110 CREATININE (test code = 2071668471) 0.80 mg/dL 0.50-1.04 TOTAL BILI (test code = 7049546922) 0.4 mg/dL 0.1-1.1 CALCIUM (test code = 8026730497) 8.4 mg/dL 8.6-10.6 L T PROTEIN (test code = 3055071385) 6.3 g/dL 6.3-8.2 ALBUMIN (test code = 0957750764) 3.7 g/dL 3.5-5.0 ALK PHOS (test code = 6282590873) 87 U/L 34-122 ALTv (test code = 1742-6) 27 U/L 5-35 AST(SGOT) (test code = 3216322483) 33 U/L 13-40 eGFR (test code = 8204602629) 86.0 mL/min/1.73m2 WESLEY (test code = WESLEY) [...] imaging tests). Lab Interpretation (test code = 90539-1) Abnormal [facility]. METABOLIC PANEL (20459)2023-01-12 04:12:43* Test Item Value Reference Range Interpretation Comme nts NA (test code = 5442278087) 137 mmol/L 135-145 K (test code = 2674756161) 3.4 mmol/L 3.5-5.0 L CL (test code = 3062117371) 104 mmol/L 98-108 CO2 TOTAL (test code = 6624535467) 24 mmol/L 23-31 AGAP (test code = 9549761717) 9 2-16 BUN (test code = 6761276157) 2 mg/dL 7-23 L GLUCOSE (test code = 9132958020) 92 mg/dL 70-110 CREATININE (test code = 0582747085) 0.80 mg/dL 0.50-1.04 TOTAL BILI (test code = 8008873054) 0.4 mg/dL 0.1-1.1 CALCIUM (test code = 2602497539) 8.4 mg/dL 8.6-10.6 L T PROTEIN (test code = 0656829745) 6.3 g/dL 6.3-8.2 ALBUMIN (test code = 7878960354) 3.7 g/dL 3.5-5.0 ALK PHOS (test code = 6857046962) 87 U/L 34-122 ALTv (test code = 1742-6) 27 U/L 5-35 AST(SGOT) (test code = 8491477014) 33 U/L 13-40 eGFR (test code = 7877752234) 86.0 mL/min/1.73m2 WESLEY (test code = WESLEY) [...] imaging tests). Lab Interpretation (test code = 92180-5) [facility] 04:07:04 BETA HCG<2.39Non- female and male patients: <5 mIU/mL01/11/2023 11:07 PM [facility] Gestational Age ?Range (mIU/mL) 1-10 ?Weeks ?92-56730955-87 Weeks ?38487-58447884-52 Weeks ?5312-42414720-84 Weeks ?8309-891778 Biotin has been reported to cause a negative bias, interpret results relative to patient's use of biotin. Gestational Age ?Range (mIU/mL) 1-10 ?Weeks ?02-95653158-53 Weeks ?14517-79569732-43 Weeks ?7079-62539681-20 Weeks?1531-527794 Biotin has been reported to cause a negative bias, interpret results relative to patient's use of biotin. Gestational Age ?Range (mIU/mL) 1-10 ?Weeks ?60-36829681-99 Weeks ?51696-62667648-78 Weeks ?8150-70875001-72 Weeks ?1531-010940 Biotin has been reported to cause a negative bias, interpretresults relative to patient's use [facility] biotin.[facility] 04:07:04BETA HCG<2.39Non- female and male patients: <5 mIU/mL01/11/2023 11:07 PM [facility] Gestational Age ?Range (mIU/mL) 1-10 ?Weeks ?07-69831175-60 Weeks ?53415-83761317-53 Weeks ?8205-62766622-02 Weeks ?1531-246522 Biotin has been reported to cause a negative bias, interpret results relative topatient's use of biotin. Gestational Age ?Range (mIU/mL) 1-10 ?Weeks ?36-11899253-35 Weeks ?12229-62479300-59 Weeks ?3765-00921013-29 Weeks?1531-928748 Biotin has been reported to cause a negative bias, interpret results relative to patient's use of biotin. Gestational Age ?Range (mIU/mL) 1-10 ?Weeks ?36-89599905-84 Weeks ?86527-14525474-99 Weeks ?7335-64425458-42 Weeks ?6156-428272 Biotin has been reported to cause a negative bias, interpretresults relative to patient's use of biotin.[facility] 2023-01-12 03:22:58* Test Item Value Reference Range Interpretation Comme nts LIPASE (test code = 1097184292) 41 U/L 0-220 Lab Interpretation (test cod e = 52513-1) Normal [facility]2023-09-02 03:22:58* Test Item Value Reference Range Interpretation Comme nts LIPASE (test code = 6732460606) 41 U/L 0-220 Lab Interpretation (test cod e = 65583-3) Normal [facility] [id number] 03:02:00* Test Item Value Reference Range Interpretation Comme nts POCT PREG (test code = 1605) Negative On board controls acceptable with C Line (test code = 3574) Yes POCT PREG LOT # (test code = 3575) [id number] POCT PREG TEST DATE ( test code = 3576) 05/15/2024 Lab Interpretation (test cod e = 97579-8) Normal [facility] [id number] 03:02:00* Test Item Value Reference Range Interpretation Comme nts POCT PREG (test code = 1605) Negative On board controls acceptable with C Line (test code = 3574) Yes POCT PREG LOT # (test code = 3575) [id number] POCT PREG TEST DATE ( test code = 3576) 05/15/2024 Lab Interpretation (test cod e = 85729-7) [facility] [id number] 00:23:34* Test Item Value Reference Range Interpretation Comme nts PREG SERUM (test code = 6478550440) Negative WESLEY (test code = WESLEY) Less than 10 IU/L. ?If low titer or ectopic is suspected, resubmit specimen in 48-72 hours. [facility] ([id number])2022-07-31 23:58:12* Test Item Value Reference Range Interpretation Comme nts NA (test code = 0724127539) 140 mmol/L 135-145 K (test code = 8793363510) 3.6 mmol/L 3.5-5.0 CL (test code = 6562811307) 106 mmol/L 98-108 CO2 TOTAL (test code = 3551871358) 21 mmol/L 23-31 L AGAP (test code = 6659265788) 13 2-16 BUN (test code = 6025004741) 8 mg/dL 7-23 GLUCOSE (test code = 4190848236) 90 mg/dL 70-110 CREATININE (test code = 8684755699) 0.90 mg/dL 0.50-1.04 TOTAL BILI (test code = 5719490328) 0.5 mg/dL 0.1-1.1 CALCIUM (test code = 4221340555) 9.0 mg/dL 8.6-10.6 T PROTEIN (test code = 7470472038) 7.8 g/dL 6.3-8.2 ALBUMIN (test code = 6447173222) 4.6 g/dL 3.5-5.0 ALK PHOS (test code = 2119870997) 63 U/L 34-122 ALTv (test code = 1742-6) 23 U/L 5-35 AST(SGOT) (test code = 2864021559) 27 U/L 13-40 eGFR (test code = 2276458210) 75.1 mL/min/1.73m2 WESLEY (test code = WESLEY) [...] imaging tests). Lab Interpretation (test code = 72483-5) [facility]32* Test Item Value Reference Range Interpretation Comme nts LIPASE (test code = 5517313772) 55 U/L 0-220 Lab Interpretation (test cod e = 20278-1) Normal [facility] WITH [id number] 23:47:31* Test Item Value Reference Range Interpretation Comme nts WBC (test code = 6690-2) 5.64 See_Comment [[employer]ated [employer]] The system which generated this result transmitted reference range: 4.30 - 11.10 10*3/?L. The reference range was not used to interpret this result as normal/abnormal. RBC (test code = 789-8) 4.51 See_Comment [[employer]] The system which generated this result transmitted [...] 32.6 g/dL 31.6-35.1 RDW-SD (test code = 27645-0) 42.5 fL 39.0-49.9 RDW-CV (test code = 788-0) 13.0 % 12.0-15.5 PLT (test code = 777-3) 339 See_Comment [Automated messa ge] The system which generated this result transmitted reference range: 166 - 358 10*3/?L. The reference range was not used to interpret this result as normal/abnormal. MPV (test code = 09078-8) 9.4 fL 9.5-12.9 L NRBC/100 WBC (test code = 0385927070) 0.0 See_Comment [Automated First Coverage ssage] The system which generated this result transmitted reference range: 0.0 - 10.0 /100 WBCs. The reference range was not used to interpret this result as normal/abnormal. NRBC x10^3 (test code = 5466915503) See_Comment [Automated messa ge] The system which generated this result transmitted reference range: 10*3/?L. The reference range was not used to interpret this result as normal/abnormal. GRAN MAT (NEUT) % (test code = 770-8) 51.2 % IMM GRAN % (test code = 2115346698) 0.20 % LYMPH % (test code = 736-9) 36.5 % MONO % (test code = 5905-5) 5.7 % EOS % (test code = 713-8) 5.9 % BASO % (test code = 706-2) 0.5 % GRAN MAT x10^3(ANC) (test code = 8649719472) 2.89 10*3/uL 1.88-7.09 IMM GRAN x10^3 (test code = 7779304160) 0.00-0.06 LYMPH x10^3 (test code = 731-0) 2.06 10*3/uL 1.32-3.29 MONO x10^3 (test code = 742-7) 0.32 10*3/uL 0.33-0.92 L EOS x10^3 (test code = 711-2) 0.33 10*3/uL 0.03-0.39 BASO x10^3 (test code = 704-7) 0.03 10*3/uL 0.01-0.07 Lab Interpretation (test code = 80582-4) [id number] 16:14:38* Test Item Value Reference Range Interpretation Comme nts POCT Molecular Strep (test c ode = 10305-0) Negative Negative Lab Interpretation (test cod e = 23328-3) Normal [facility]. METABOLIC PANEL (91106)2022-05-05 19:35:37* Test Item Value Reference Range Interpretation Comme nts NA (test code = 1023721042) 139 mmol/L 135-145 K (test code = 7842645336) 4.4 mmol/L 3.5-5.0 CL (test code = 0539305288) 104 mmol/L 98-108 CO2 TOTAL (test code = 3506211807) 22 mmol/L 23-31 L AGAP (test code = 3866486105) 2-16 BUN (test code = 5273597628) 11 mg/dL 7-23 GLUCOSE (test code = 1792905823) 95 mg/dL 70-110 CREATININE (test code = 1149803761) 0.71 mg/dL 0.50-1.04 TOTAL BILI (test code = 5641542872) 0.4 mg/dL 0.1-1.1 CALCIUM (test code = 8670242364) 9.1 mg/dL 8.6-10.6 T PROTEIN (test code = 7415598025) 7.9 g/dL 6.3-8.2 ALBUMIN (test code = 8642506462) 4.7 g/dL 3.5-5.0 ALK PHOS (test code = 1909282930) 114 U/L 34-122 ALTv (test code = 1742-6) 21 U/L 5-35 AST(SGOT) (test code = 8026406830) 21 U/L 13-40 eGFR (test code = 7369415091) mL/min/1.73m2 WESLEY (test code = WESLEY) Association [...] imaging tests). Lab Interpretation (test code = 16945-3) Abnormal [facility] WITH [id number] 19:25:37* Test Item Value Reference Range Interpretation Comme nts WBC (test code = 6690-2) See_Comment [VocalZoom] The system which generated this result transmitted reference range: 4.30 - 11.10 10*3/?L. The reference range was not used to interpret this result as normal/abnormal. RBC (test code = 789-8) See_Comment [VocalZoom] The system which generated this result transmitted [...] 32.9 g/dL 31.6-35.1 RDW-SD (test code = 20429-8) 41.7 fL 39.0-49.9 RDW-CV (test code = 788-0) 12.7 % 12.0-15.5 PLT (test code = 777-3) See_Comment H [Automated messa ge] The system which generated this result transmitted reference range: 166 - 358 10*3/?L. The reference range was not used to interpret this result as normal/abnormal. MPV (test code = 83328-1) 8.8 fL 9.5-12.9 L NRBC/100 WBC (test code = 7394453440) See_Comment [Automated First Coverage ssage] The system which generated this result transmitted reference range: 0.0 - 10.0 /100 WBCs. The reference range was not used to interpret this result as normal/abnormal. NRBC x10^3 (test code = 6453318848) See_Comment [Automated messa ge] The system which generated this result transmitted reference range: 10*3/?L. The reference range was not used to interpret this result as normal/abnormal. GRAN MAT (NEUT) % (test code = 770-8) 56.1 % IMM GRAN % (test code = 8325469232) 0.40 % LYMPH % (test code = 736-9) 29.9 % MONO % (test code = 5905-5) 5.4 % EOS % (test code = 713-8) 7.8 % BASO % (test code = 706-2) 0.4 % GRAN MAT x10^3(ANC) (test code = 9630776784) 3.75 10*3/uL 1.88-7.09 IMM GRAN x10^3 (test code = 3728985946) 0.03 10*3/uL 0.00-0.06 LYMPH x10^3 (test code = 731-0) 2.00 10*3/uL 1.32-3.29 MONO x10^3 (test code = 742-7) 0.36 10*3/uL 0.33-0.92 EOS x10^3 (test code = 711-2) 0.52 10*3/uL 0.03-0.39 H BASO x10^3 (test code = 704-7) 0.03 10*3/uL 0.01-0.07 Lab Interpretation (test code = 67318-6) [facility] [id number] 19:00:00* Test Item Value Reference Range Interpretation Comme nts POCT PREG (test code = 1605) negative On board controls acceptable with C Line (test code = 3574) present POCT PREG LOT # (test code = 3575) [id number] POCT PREG TEST DATE ( test code = 3576) 08-11-2023 Lab Interpretation (test cod e = 26009-0) Normal [facility] WITH [id number] 15:21:11* Test Item Value Reference Range Interpretation [...] 33.0 g/dL 31.6-35.1 RDW-SD (test code = 65504-1) 42.6 fL 39.0-49.9 RDW-CV (test code = 788-0) 12.9 % 12.0-15.5 PLT (test code = 777-3) See_Comment H [Automated messa ge] The system which generated this result transmitted reference range: 166 - 358 10*3/?L. The reference range was not used to interpret this result as normal/abnormal. MPV (test code = 96257-5) 9.1 fL 9.5-12.9 L NRBC/100 WBC (test code = 7854076027) See_Comment [Automated me ssage] The system which generated this result transmitted reference range: 0.0 - 10.0 /100 WBCs. The reference range was not used to interpret this result as normal/abnormal. NRBC x10^3 (test code = 2293087514) See_Comment [Automated messa ge] The system which generated this result transmitted reference range: 10*3/?L. The reference range was not used to interpret this result as normal/abnormal. GRAN MAT (NEUT) % (test code = 770-8) 56.8 % IMM GRAN % (test code = 3933126929) 0.30 % LYMPH % (test code = 736-9) 29.5 % MONO % (test code = 5905-5) 4.3 % EOS % (test code = 713-8) 8.3 % BASO % (test code = 706-2) 0.8 % GRAN MAT x10^3(ANC) (test code = 4588763021) 3.57 10*3/uL 1.88-7.09 IMM GRAN x10^3 (test code = 4351374498) 0.00-0.06 LYMPH x10^3 (test code = 731-0) 1.85 10*3/uL 1.32-3.29 MONO x10^3 (test code = 742-7) 0.27 10*3/uL 0.33-0.92 L EOS x10^3 (test code = 711-2) 0.52 10*3/uL 0.03-0.39 H BASO x10^3 (test code = 704-7) 0.05 10*3/uL 0.01-0.07 Lab Interpretation (test code = 45853-4) Abnormal [facility]. METABOLIC PANEL (66853)2022-04-26 15:12:13* Test Item Value Reference Range Interpretation Comme nts NA (test code = 0401263622) 141 mmol/L 135-145 K (test code = 2647384288) 3.4 mmol/L 3.5-5.0 L CL (test code = 1327624524) 104 mmol/L 98-108 CO2 TOTAL (test code = 5253653263) 23 mmol/L 23-31 AGAP (test code = 7686208072) 2-16 BUN (test code = 1360849630) 9 mg/dL 7-23 GLUCOSE (test code = 7134061922) 101 mg/dL 70-110 CREATININE (test code = 3655026774) 0.82 mg/dL 0.50-1.04 TOTAL BILI (test code = 3623281281) 0.7 mg/dL 0.1-1.1 CALCIUM (test code = 3348308287) 9.3 mg/dL 8.6-10.6 T PROTEIN (test code = 3699884544) 8.1 g/dL 6.3-8.2 ALBUMIN (test code = 1610183770) 4.7 g/dL 3.5-5.0 ALK PHOS (test code = 4032284125) 108 U/L 34-122 ALTv (test code = 1742-6) 24 U/L 5-35 AST(SGOT) (test code = 7451927720) 49 U/L 13-40 H eGFR (test code = 6435167460) mL/min/1.73m2 WESLEY (test code = WESLEY) Association [...] imaging tests). Lab Interpretation (test code = 22503-3) Abnormal [facility] [id number] 14:45:00* Test Item Value Reference Range Interpretation Comme nts POCT PREG (test code = 1605) negative On board controls acceptable with C Line (test code = 3574) present POCT PREG LOT # (test code = 3575) [id number] POCT PREG TEST DATE ( test code = 3576) 08/11/2023 Lab Interpretation (test cod e = 07542-0) Normal [facility] [id number] 01:22:00* Test Item Value Reference Range Interpretation Comme nts POCT PREG (test code = 1605) Negative On board controls acceptable with C Line (test code = 3574) Present POCT PREG LOT # (test code = 3575) [id number] POCT PREG TEST DATE ( test code = 3576) 08-11-2023 Lab Interpretation (test cod e = 90742-1) Normal [facility] METABOLIC PANEL (NA, K, CL, CO2, GLUCOSE, BUN, CREATININE, CA)2022-04-07 23:01:10* Test Item Value Reference Range Interpretation Comme nts NA (test code = 9965565240) 138 mmol/L 135-145 K (test code = 3339586287) 4.3 mmol/L 3.5-5.0 CL (test code = 9715280994) 107 mmol/L 98-108 CO2 TOTAL (test code = 0373469310) 20 mmol/L 23-31 L AGAP (test code = 6241902624) 2-16 BUN (test code = 8939686248) 9 mg/dL 7-23 GLUCOSE (test code = 2942237537) 204 mg/dL 70-110 H CREATININE (test code = 5143702180) 0.74 mg/dL 0.50-1.04 CALCIUM (test code = 7220842549) 9.1 mg/dL 8.6-10.6 eGFR (test code = 6516189478) mL/min/1.73m2 WESLEY (test code = WESLEY) Association [...] imaging tests). Lab Interpretation (test code = 90299-0) Abnormal [facility] WITH [id number] 22:57:34* Test Item Value Reference Range Interpretation Comme nts WBC (test code = 6690-2) See_Comment [Automated MarketArt] The system which generated this result transmitted reference range: 4.30 - 11.10 10*3/?L. The reference range was not used to interpret this result as normal/abnormal. RBC (test code = 789-8) See_Comment [Automated [employer]] The system which generated this result transmitted [...] 33.5 g/dL 31.6-35.1 RDW-SD (test code = 16197-7) 42.9 fL 39.0-49.9 RDW-CV (test code = 788-0) 13.4 % 12.0-15.5 PLT (test code = 777-3) See_Comment H [Automated messa ge] The system which generated this result transmitted reference range: 166 - 358 10*3/?L. The reference range was not used to interpret this result as normal/abnormal. MPV (test code = 18418-8) 8.9 fL 9.5-12.9 L NRBC/100 WBC (test code = 3784856689) See_Comment [Automated First Coverage ssage] The system which generated this result transmitted reference range: 0.0 - 10.0 /100 WBCs. The reference range was not used to interpret this result as normal/abnormal. NRBC x10^3 (test code = 3712008625) See_Comment [Automated messa ge] The system which generated this result transmitted reference range: 10*3/?L. The reference range was not used to interpret this result as normal/abnormal. GRAN MAT (NEUT) % (test code = 770-8) 88.7 % IMM GRAN % (test code = 4055203912) 0.70 % LYMPH % (test code = 736-9) 9.4 % MONO % (test code = 5905-5) 0.9 % EOS % (test code = 713-8) 0.1 % BASO % (test code = 706-2) 0.2 % GRAN MAT x10^3(ANC) (test code = 3627977664) 7.81 10*3/uL 1.88-7.09 H IMM GRAN x10^3 (test code = 9779753121) 0.06 10*3/uL 0.00-0.06 LYMPH x10^3 (test code = 731-0) 0.83 10*3/uL 1.32-3.29 L MONO x10^3 (test code = 742-7) 0.08 10*3/uL 0.33-0.92 L EOS x10^3 (test code = 711-2) 0.03-0.39 L BASO x10^3 (test code = 704-7) 0.01-0.07 Lab Interpretation (test code = 17871-5) Abnormal [facility] [id number] 14:07:00* Test Item Value Reference Range Interpretation Comme nts POCT PREG (test code = 1605) negative On board controls acceptable with C Line (test code = 3574) present POCT PREG LOT # (test code = 3575) [id number] POCT PREG TEST DATE ( test code = 3576) 08/11/2023 Lab Interpretation (test cod e = 37978-5) Normal [facility] [id number] 13:52:00* Test Item Value Reference Range Interpretation Comme nts POCT PREG (test code = 1605) negative On board controls acceptable with C Line (test code = 3574) present Lab Interpretation (test cod e = 22932-9) Normal [facility] [id number] 14:59:00* Test Item Value Reference Range Interpretation Comme nts POCT PREG (test code = 1605) negative On board controls acceptable with C Line (test code = 3574) yes POCT PREG LOT # (test code = 3575) [id number] POCT PREG TEST DATE ( test code = 3576) 07/11/2023 Lab Interpretation (test cod e = 37816-0) Normal [facility]. METABOLIC PANEL (41935)2022 17:51:43* Test Item Value Reference Range Interpretation Comme nts NA (test code = 4847302307) 139 mmol/L 135-145 K (test code = 7476778716) 4.1 mmol/L 3.5-5 CL (test code = 8480228151) 104 mmol/L 98-108 CO2 TOTAL (test code = 5368700422) 22 mmol/L 23-31 L AGAP (test code = 1881674072) 2-16 BUN (test code = 2257845342) 7 mg/dL 7-23 GLUCOSE (test code = 1264810743) 114 mg/dL 70-110 H CREATININE (test code = 5139088166) 0.69 mg/dL 0.5-1.04 TOTAL BILI (test code = 5110605483) 0.4 mg/dL 0.1-1.1 CALCIUM (test code = 1757078869) 9.7 mg/dL 8.6-10.6 T PROTEIN (test code = 6031280383) 7.2 g/dL 6.3-8.2 ALBUMIN (test code = 5347829702) 4.6 g/dL 3.5-5 ALK PHOS (test code = 3357459830) 65 U/L 34-122 ALTv (test code = 1742-6) 15 U/L 5-35 AST(SGOT) (test code = 7492795831) 19 U/L 13-40 eGFR (test code = 9253593592) mL/min/1.73m2 WESLEY (test code = WESLEY) Association [...] imaging tests). Lab Interpretation (test code = 44465-3) Abnormal [facility] WITH [id number] 17:40:24* Test Item Value Reference Range Interpretation Comme nts WBC (test code = 6690-2) See_Comment [Automated Ecreboa ge] The system which generated this result transmitted reference range: 4.30 - 11.10 10*3/?L. The reference range was not used to interpret this result as normal/abnormal. RBC (test code = 789-8) See_Comment [Automated Ecreboa ge] The system which generated this result [...] 33.3 g/dL 31.6-35.1 RDW-SD (test code = 88269-2) 43.1 fL 39-49.9 RDW-CV (test code = 788-0) 13.2 % 12-15.5 PLT (test code = 777-3) See_Comment [Automated Ecreboa ge] The system which generated this result transmitted reference range: 166 - 358 10*3/?L. The reference range was not used to interpret this result as normal/abnormal. MPV (test code = 35845-6) 9.5 fL 9.5-12.9 NRBC/100 WBC (test code = 9312459144) See_Comment [Automated First Coverage ssage] The system which generated this result transmitted reference range: 0.0 - 10.0 /100 WBCs. The reference range was not used to interpret this result as normal/abnormal. NRBC x10^3 (test code = 5267219836) See_Comment [Automated messa ge] The system which generated this result transmitted reference range: 10*3/?L. The reference range was not used to interpret this result as normal/abnormal. GRAN MAT (NEUT) % (test code = 770-8) 57.8 % IMM GRAN % (test code = 9177609167) 0.20 % LYMPH % (test code = 736-9) 30.8 % MONO % (test code = 5905-5) 5.1 % EOS % (test code = 713-8) 5.6 % BASO % (test code = 706-2) 0.5 % GRAN MAT x10^3(ANC) (test code = 3068201501) 3.61 10*3/uL 1.88-7.09 IMM GRAN x10^3 (test code = 9074100103) 0-0.06 LYMPH x10^3 (test code = 731-0) 1.92 10*3/uL 1.32-3.29 MONO x10^3 (test code = 742-7) 0.32 10*3/uL 0.33-0.92 L EOS x10^3 (test code = 711-2) 0.35 10*3/uL 0.03-0.39 BASO x10^3 (test code = 704-7) 0.03 10*3/uL 0.01-0.07 Lab Interpretation (test code = 13164-9) [id number] 17:27:00* Test Item Value Reference Range Interpretation Comme nts POCT PREG (test code = 1605) negative On board controls acceptable with C Line (test code = 3574) present POCT PREG LOT # (test code = 3575) [id number] POCT PREG TEST DATE ( test code = 357) Lab Interpretation (test cod e = 88169-2) [facility] 12:45:21* Test Item Value Reference Range Interpretation Comme nts LIPASE (test code = 0162893773) 41 U/L 0-220 Lab Interpretation (test cod e = 99359-7) [facility] [id number] 10:57:00* Test Item Value Reference Range Interpretation Comme nts POCT PREG (test code = 1605) Negative On board controls acceptable with C Line (test code = 3574) Present POCT PREG LOT # (test code = 3575) [id number] POCT PREG TEST DATE ( test code = 3576) 03/12/2023 Lab Interpretation (test cod e = 57969-5) Normal [facility] METABOLIC PANEL (NA, K, CL, CO2, GLUCOSE, BUN, CREATININE, CA)2022-01-18 10:56:51* Test Item Value Reference Range Interpretation Comme nts NA (test code = 1900646565) 137 mmol/L 135-145 K (test code = 9520282714) 4.6 mmol/L 3.5-5 Slight hemolysis CL (test code = 0672250277) 108 mmol/L 98-108 CO2 TOTAL (test code = 6966407276) 22 mmol/L 23-31 L AGAP (test code = 3064943162) 2-16 BUN (test code = 9359626322) 11 mg/dL 7-23 Slight hemolysis GLUCOSE (test code = 9256590820) 83 mg/dL 70-110 CREATININE (test code = 1169695199) 0.68 mg/dL 0.5-1.04 CALCIUM (test code = 1259590666) 8.8 mg/dL 8.6-10.6 eGFR (test code = 1911032892) mL/min/1.73m2 WESLEY (test code = WESLEY) Association [...] imaging tests). Lab Interpretation (test code = 44958-4) [facility]08182[facility] (ALB,T.PRO,BILI T,BU/BC,ALT,AST,ALK PHOS)2022-01-18 10:56:51* Test Item Value Reference Range Interpretation Comme nts TOTAL BILI (test code = 7910327556) 0.6 mg/dL 0.1-1.1 BILI UNCON (test code = 3164318267) 0.1 mg/dL 0.1-1.1 BILI CONJ (test code = 7944042751) 0.0 mg/dL 0-0.3 T PROTEIN (test code = 9491278223) 8.6 g/dL 6.3-8.2 H ALBUMIN (test code = 6980256279) 5.1 g/dL 3.5-5 H ALK PHOS (test code = 5355579368) 79 U/L 34-122 ALTv (test code = 1742-6) 117 U/L 5-35 H AST(SGOT) (test code = 4984889437) 163 U/L 13-40 H Lab Interpretation (test cod e = 80148-2) [facility], [id number] 10:54:25* Test Item Value Reference Range Interpretation Comme nts PREG SERUM (test code = 3551258342) Negative WESLEY (test code = WESLEY) Less than 10 IU/L. ?If low titer or ectopic is suspected, resubmit specimen in 48-72 hours. [facility] WITH [id number] 10:40:49* Test Item Value Reference Range Interpretation [...] 33.6 g/dL 31.6-35.1 RDW-SD (test code = 96982-8) 45.3 fL 39-49.9 RDW-CV (test code = 788-0) 14.5 % 12-15.5 PLT (test code = 777-3) See_Comment [Automated messa ge] The system which generated this result transmitted reference range: 166 - 358 10*3/?L. The reference range was not used to interpret this result as normal/abnormal. MPV (test code = 45897-6) 9.5 fL 9.5-12.9 NRBC/100 WBC (test code = 3204377698) See_Comment [Automated First Coverage ssage] The system which generated this result transmitted reference range: 0.0 - 10.0 /100 WBCs. The reference range was not used to interpret this result as normal/abnormal. NRBC x10^3 (test code = 5849728091) See_Comment [Automated messa ge] The system which generated this result transmitted reference range: 10*3/?L. The reference range was not used to interpret this result as normal/abnormal. GRAN MAT (NEUT) % (test code = 770-8) 47.6 % IMM GRAN % (test code = 6370026447) 0.60 % LYMPH % (test code = 736-9) 39.9 % MONO % (test code = 5905-5) 5.9 % EOS % (test code = 713-8) 5.3 % BASO % (test code = 706-2) 0.7 % GRAN MAT x10^3(ANC) (test code = 6266562917) 4.45 10*3/uL 1.88-7.09 IMM GRAN x10^3 (test code = 8980729528) 0.06 10*3/uL 0-0.06 LYMPH x10^3 (test code = 731-0) 3.74 10*3/uL 1.32-3.29 H MONO x10^3 (test code = 742-7) 0.55 10*3/uL 0.33-0.92 EOS x10^3 (test code = 711-2) 0.50 10*3/uL 0.03-0.39 H BASO x10^3 (test code = 704-7) 0.07 10*3/uL 0.01-0.07 Lab Interpretation (test code = 42796-3) Abnormal [facility] [id number] 18:31:00* Test Item Value Reference Range Interpretation Comme nts POCT PREG (test code = 1605) Negative On board controls acceptable with C Line (test code = 3574) Yes POCT PREG LOT # (test code = 3575) POCT PREG TEST DATE ( test code = 3576) [facility] URINALYSIS W/O SPECIFIC [id number] 18:31:00* Test Item Value Reference Range Interpretation [...] = 3257) Trace Negative - Negati ve [facility] Consult Notes Date/Time Note Provider Source 2023-01-12 00:12:43 1227-22-26X17:12:43A ssociated Order(s): CONSULT GENERAL SURGERY TRAUMA/ACS Surgery [...] symptomatic cholelithiasis 1.5 months ago at OSH ([place]). Pt states that she has had persistent RUQ pain with nausea and po intolerance along with intermittent chills and vomiting since surgery. Was seen by PCP and instructed to come to [facility] ED for further evaluation. Review of [...] N/A 07/21/2019 Surgeon: Prasanna Vargas MD; Location: [facility] Labor and Delivery OR Location TUBAL LIGATION N/A 07/21/2019 Surgeon: Prasanna Vargas MD; Location: [facility] Labor and Delivery OR Location [...] skin once every month. 1 mL 3 Ljyrnoxhsq-Jalctttzfewxc-Kege (FIORICET) 50-300-40 mg per capsule Take 1 [...] - eGFR: 86.0 Ca: 8.4 (L) % Georiga: 52.0 Prot: 6.3 Alb: 3.7 Lact: - [...] symptomatic cholelithiasis 1.5 months ago at OSH ([place]).Plan:[facility]mission to [facility] serviceConsult IR for percutaneous drainage of [...] pain, nausea, anorexia since lap pasquale at [facility] on 12/01/22 with noted venous bleeding from [...] Surgery, and Surgical Critical Care In-house Pager: [id number] [id number], Amy1.2.840.271452.1.13.104.2.7.2.955333Hgx abpBzqNP1208-88-80F82:39:26Consult noteTXT1.2.840.377131.1.13.104.2.7.2.41979 9|[id number] for patient oryl62291-6Eplzxda noteLNUTMBDR. DAN C. [facility]IGG [facility] - [address] Qr[id number] WOZRKMFIONGZLTFP6721-41-35H20:39:261.2.840 .370194.1.72.3.15|1.2.840.996815.1.13.104. 2.7.2.727879_[id number] [facility] - [facility] History and Physical Notes Date/Time Note Provider Source 2023-01-12 01:05:04 0886-36-72H19:05:04F ormatting of this note might be different from the original.01/12/23 1:05 AM Please refer to consult note written by Rodolfo Riggins DO on 01/12/23 for complete H&P.NITESH Gandara-2 Surgery Resident ssociated attestation - Mirella Vergara MD - 01/12/2023 1:47 AM CDT Uxjzi73249-0Glnbbtn and physical kcwiIH0810796Xvjdzo, Amy1.2.840.578095.1.13.104.2.7.2.484422Fle jevQwmNB7705-06-04J00:47:52History and physical noteTXT1.2.840.731212.1.13.104.2.7.2.71607 9|[id number] for patient wtse44880-9Fnsypie and physical noteLNUTMB[address] BdduXegguacxcOvugyespzQYPJ5142261771WRQCYW AFZQSXLMIBHNYFSC1858-80-94Z89:47:521.2.840 .178252.1.72.3.15|1.2.840.667571.1.13.104. 2.7.2.727879_[id number] [facility] Notes Date/Time Note Provider Source 2023-08-27 16:08:07 1065-00-10Z05:08:07F ormatting of this note is different from the original.TRANSITIONAL CARE MANAGEMENT ASSESSMENT08/27/2023karmailiana DysonLoqtnsq165511QSuxwm Nelia Dyson is a 28 year old /White female was admitted on 08/23/23 to [facility], [address] She was discharged on 08/24/23 with discharge disposition of HR- Routine Discharge.Admitting Physician: Mee Lim Diagnosis: Cerebrovascular accident (CVA), unspecified mechanism [Pt. Voiced her thoughts about [facility], not pleased with care provided.Plans to not f/u with [facility].Pt. Inquired about results MY chart issue due to pt. Came in the hospital not alert. Instructed via the AVS it is under the other name Dominick Adamson 08/23/2023 - 08/24/2023 Neurology/Neurological Surgery ([address] Pt. Access via the AVS page 4 there.Pt. Has gone under this chart Karis with no results found. Gave HIM contact number for further assistance.No linked episodesTCM Yig-mgml-hg-face outreach documentation:Discharge AssessmentChart Assessed: 08/27/23TCM Outreach Completed: 08/27/23Do you have a few minutes to speak with me about how you are doing at home?: YesSurvey - RecognitionIs there anything you would like to share about your recent hospitalization, or anyone you would like to recognize?: YesDo you have any other questions or concerns at this time?: YesFuture Appointments:Future AppointmentsProvider Department Dept Phone09/12/2023 9:30 AM ADC MOBILE MRI 1 (1.5T) [facility], [facility] [phone] signed by Marlys Odell LVN at 08/27/2023 4:11 PM [id number] encounter QevxYS3680-75-32V10:11:06Telephon e encounter NoteTXT1.2.840.456689.1.13.104.2. 7.2.580133|[id number] for patient juag66522-1LqnrOXZCVLKVANMQupdwwm ed C-CDA narrative [id number] [place] [address] [id number] 831UCWJXHNJWFQKFECCILUDTE8187-30- 16T16:11:061.2.840.591305.1.72.3. 15|1.2.840.844514.1.13.104.2.7.2. [id number] Marlys Odell LVN [facility] 2023-08-26 13:35:01 6150-68-96S70:35:01F ormatting of this note might be different from the original.TRANSITIONAL CARE MANAGEMENT ASSESSMENT4Angiliana DysonXfblckd131099BUyczu Nelia Dyson is a 28 year old /White female was admitted on 08/23/[address] She was discharged on 08/24/23 with discharge disposition of HR- Routine Discharge.Admitting Physician: Mee Lim Diagnosis: Cerebrovascular accident (CVA), unspecified mechanism [I63.9]No contact.No linked episodesTCM Qqf-quok-sk-face outreach documentation:Future Appointments: 69380-7Wkndmbzct encounter XwbbUB5478-70-17S57:37:22Telephon e encounter NoteTXT1.2.840.992900.1.13.104.2. 7.2.285061|[id number] for patient lvrl38718-0SgohGPVORAPURDHUlgarns ed C-CDA narrative [address]TXTX[address] 656RGCHFACFKZRCLJEQXHCTOX4727-48- 15T13:37:221.2.840.973745.1.72.3. 15|1.2.840.019650.1.13.104.2.7.2. 727879_[id number] [facility] 2023-05-19 12:16:00 3418-71-85C26:16:00F ormatting of this note might be different from the original.Pt given printed and verbal discharge instructions regarding [...] with steady gait, in no apparent distress. 46815-0Nyqibpvfe department MrtsFL1482-39-60T85:20:15[facility] NoteTXT1.2.840.678123.1.13.104.2. 7.2.507824|[id number] for patient osxo19395-4AtamKOICJODXJDJHyfufbs ed C-CDA narrative [address]TXTX[address] 960HTBHISSXSISJFHZEKLGHWE4244-67- 07T12:20:151.2.840.496872.1.72.3. 15|1.2.840.537807.1.13.104.2.7.2. 727879_[id number] [facility] 2023-05-19 08:50:00 4795-12-77P82:50:00F ormatting of this note might be different from the original.Patient came in with complaints of epigastric pain that radiates to her left shoulder associated with nausea and vomiting since a couple of weeks now. Patient states that she was worked up in [facility] 2 weeks ago and found nothing wrong, just referred to a GI doctor but she hasn't seen one because she has no insurance. 64899-4Xmnjskybc department Triage mgyaOC6682-52-90J23:01:49Emergen y department Triage noteTXT1.2.840.861150.1.13.104.2. 7.2.352147|[id number] for patient uezf89425-8Kqmokjped department NoteLNNARRATIVEFormatted C-CDA narrative [id number] C Heredia RNUT[address] YotlImaroxbcbGhwzqwbtuKFAC0010296 097AYHJAPUKENGKEJNJLNSHJV7426-65- 07T09:01:491.2.840.979209.1.72.3. 15|1.2.840.446185.1.13.104.2.7.2. 727879_[id number] Syeda Ruiz RN [facility] 2023-01-16 10:56:45 5495-88-98T10:56:45F ormatting of this note is different from the original.TRANSITIONAL CARE MANAGEMENT ASSESSMENT01/16/2023 Nikko DysonIotjlhp812806GDgbwg Nelia Dyson is a 27 year old /White female was admitted on 01/11/[address] [facility] 9C. She was discharged on 01/15/23 with discharge disposition of HR- Routine Discharge.Admitting Physician: Misty Steele Diagnosis: Postprocedural intraabdominal abscess [T81.43XA]Pt. Verbalized understanding discharge instructions. Plans to f/u with pcp.Linked Episodes Type: Episode: Status: Noted: Resolved: Last update: Updated by: TRANSITION OF CARE tcm Active 01/16/2023 01/16/2023 10:56 AM Marlys Odell LVN Comments: TCM Zeu-unkm-iq-face outreach documentation:Discharge AssessmentChart Assessed: 01/16/23TCM Outreach Completed: [...] with the names or descriptions of any vkgs-fds-ihhdzud or supplements you are currently taking?: YesSuppliesDid [...] or concerns at this time?: NoFuture Appointments: 99248-4Dwrqvtspz encounter JnbgOV5263-62-38M76:57:41Telephon e encounter NoteTXT1.2.840.872496.1.13.104.2. 7.2.714335|[id number] for patient jqit25590-7MfrsRO399458054Jrbiuho tte Odell [address] ZflwDclhytoylSpbjfunfySJQB6078781 522LXDEAHRIIQDXLOXQBHNMRN0208-70- 06T10:57:411.2.840.286466.1.72.3. 15|1.2.840.681428.1.13.104.2.7.2. 727879_[id number] Marlys Odell [facility] 2023-01-15 18:18:34 4936-67-04U99:18:34F ormatting of this note might be different [...] Vero Crews RNOutcome: Progressing as expectedGoal: Effective communication01/15/2023 1818 by Vero Crews RNOutcome: Adequate for discharge01/15/2023 1818 by Vero Crews RNOutcome: Adequate for discharge01/15/2023 1310 by Vero Crews RNOutcome: Progressing as expected 64752-5Aalk of care htziBB1057-66-87K13:18:58Plan of care noteTXT1.2.840.134989.1.13.104.2. 7.2.473066|[id number] for patient tgji75864-9LouiLZXCGCRNFR[address]TXTX[address] 441BVZMJQALIPJDRCHFWJRUTG7378-36- 05T18:18:581.2.840.661189.1.72.3. 15|1.2.840.993339.1.13.104.2.7.2. 727879_[id number] [facility] 2023-01-15 15:08:00 9482-37-16V74:08:00F ormatting of this note might be different from the original.Called outpatient pharmacy and spoke to Maggi. Stated pharmacy will bring patient's medications to her room within 45min to an hour. 28105-4Wvjvn FtndWN8693-29-94L90:49:16Nurse NoteTXT1.2.840.471235.1.13.104.2. 7.2.828412|[id number] for patient mtga17295-8Oonem ExteBL640321892Rmyqemx R Hanegan [address]TXTX[address] 135LBIVPLCBROUWNUEBYHOJNC6021-37- 05T15:49:161.2.840.440658.1.72.3. 15|1.2.840.239507.1.13.104.2.7.2. 727879_[id number] eVro Crews RN [facility] 2023-01-15 13:11:00 7758-25-33O86:11:00F ormatting of this note might be different from the original.Problem: Infection RiskGoal: Absence of infectionOutcome: Progressing as expected Problem: PainGoal: Control of pain at or below patient's documented comfort goalOutcome: Progressing as expectedGoal: Reduction in pain sensationOutcome: Progressing as expected Problem: Discharge PlanningGoal: Adequate for dischargeOutcome: Progressing as expectedGoal: Effective communicationOutcome: Progressing as expected 25271-0Ngab of care xntnDO7477-31-09C91:11:04Plan of care noteTXT1.2.840.206497.1.13.104.2. 7.2.841781|[id number] for patient voan32180-3DskeXMVDIGMWZH[address]TXTX[address] 224TDJLNRYYHITVNXBRFPWODE1243-88- 05T13:11:041.2.840.047543.1.72.3. 15|1.2.840.272946.1.13.104.2.7.2. 727879_[id number] [facility] 2023-01-15 06:25:22 0816-29-41Y42:25:22F ormatting of this note might be different from the original.Problem: Infection RiskGoal: Absence of infectionOutcome: Progressing as expected Problem: PainGoal: Control of pain at or below patient's documented comfort goalOutcome: Progressing as expectedGoal: Reduction in pain sensationOutcome: Progressing as expected Problem: Discharge PlanningGoal: Adequate for dischargeOutcome: Progressing as expectedGoal: Effective communicationOutcome: Progressing as expected 56012-0Jupw of care xdtdWN2482-36-94U18:25:24Plan of care noteTXT1.2.840.545550.1.13.104.2. 7.2.900469|[id number] for patient nlkf87160-4DzepXK609828511Nztjv M Miguelangel RN[address]TXTX[address] 602FUMYHNMJHOESIELORDZOQZ4972-32- 05T06:25:241.2.840.649687.1.72.3. 15|1.2.840.225011.1.13.104.2.7.2. 727879_[id number] Katy Amaral Miguelangel [facility] 2023-01-14 09:27:52 5137-43-15G73:27:52F ormatting of this note might be different from the original.Problem: Infection RiskGoal: Absence of infectionOutcome: Progressing as expected Problem: PainGoal: Control of pain at or below patient's documented comfort goalOutcome: Progressing as expectedGoal: Reduction in pain sensationOutcome: Progressing as expected Problem: Discharge PlanningGoal: Adequate for dischargeOutcome: Progressing as expectedGoal: Effective communicationOutcome: Progressing as expected 99133-7Nhhl of care jvxpME3921-05-19A76:27:55Plan of care noteTXT1.2.840.266784.1.13.104.2. 7.2.989973|[id number] for patient nlbf99705-7JeeyIU264162919Mjxq W Martinez RNUT[address]TXTX[address] 462BOKILVPXJYQQUNGTAVUQTB3058-39- 04T09:27:551.2.840.256959.1.72.3. 15|1.2.840.457206.1.13.104.2.7.2. 727879_[id number] Charles Win RN [facility] 2023-01-13 22:20:47 3225-57-43A46:20:47F ormatting of this note might be different from the original.Notified MD by page due to double dose of Tylenol being given. Per MD Brito no more Tylenol to be given for tonight. 53904-7Wnnvr JpjgHB1392-93-11O14:25:15Nurse NoteTXT1.2.840.217723.1.13.104.2. 7.2.496590|[id number] for patient doil22542-2DinmXUCOKTCUWJ[address] [place], [place] [address] 789MQXSEHEKBROBYNIAOGAXPI7454-21- 03T22:25:151.2.840.526234.1.72.3. 15|1.2.840.676757.1.13.104.2.7.2. 727879_[id number] [facility] 2023-01-13 21:55:20 2191-70-07Y85:55:20F ormatting of this note might be different from the original.Problem: Infection RiskGoal: Absence of infectionOutcome: Progressing as expected Problem: PainGoal: Control of pain at or below patient's documented comfort goalOutcome: Progressing as expectedGoal: Reduction in pain sensationOutcome: Progressing as expected Problem: Discharge PlanningGoal: Adequate for dischargeOutcome: Progressing as expectedGoal: Effective communicationOutcome: Progressing as expected 80119-4Ghom of care vqguZL3706-70-89E79:55:38Plan of care noteTXT1.2.840.322289.1.13.104.2. 7.2.919293|[id number] for patient ddya57202-2UxlsHIYHZGJWNT[address] [place], [place] [address] 011MMCBOCAPSXRUTFJQRNWKGK9081-91- 03T21:55:381.2.840.282125.1.72.3. 15|1.2.840.497256.1.13.104.2.7.2. 727879_[id number] [facility] 2023-01-13 08:20:43 6056-98-63W37:20:43F ormatting of this note might be different from the original.Problem: Infection RiskGoal: Absence of infectionOutcome: Progressing as expected Problem: PainGoal: Control of pain at or below patient's documented comfort goalOutcome: Progressing as expectedGoal: Reduction in pain sensationOutcome: Progressing as expected Problem: Discharge PlanningGoal: Adequate for dischargeOutcome: Progressing as expectedGoal: Effective communicationOutcome: Progressing as expected 40322-1Egoc of care ndypHN4499-10-66E53:20:46Plan of care noteTXT1.2.840.364345.1.13.104.2. 7.2.633219|[id number] for patient wcol86454-0EmmfJDZZAFBIIT[address] MklmHfaghcfcjRqmhiknvcXISP9270679 060HCBAHZJCSWAKAEHOIJJNGM6590-98- 03T08:20:461.2.840.676875.1.72.3. 15|1.2.840.352778.1.13.104.2.7.2. 727879_[id number] [facility] 2023-01-12 20:10:08 5488-56-82R26:10:08F ormatting of this note might be different from the original.Problem: Infection RiskGoal: Absence of infectionOutcome: Progressing as expected Problem: PainGoal: Control of pain at or below patient's documented comfort goalOutcome: Progressing as expectedGoal: Reduction in pain sensationOutcome: Progressing as expected Problem: Discharge PlanningGoal: Adequate for dischargeOutcome: Progressing as expectedGoal: Effective communicationOutcome: Progressing as expected 58086-8Qkzl of care tcgdJD6502-28-09K56:10:14Plan of care noteTXT1.2.840.992172.1.13.104.2. 7.2.377395|8390770095RHWhelcbfpn for patient xijv72381-2BwvqXDKVIQXNGQ[address]TXTX[address] 007GYALNMQOOQSMRBSFIRWTUY9066-26- 02T20:10:141.2.840.254049.1.72.3. 15|1.2.840.678412.1.13.104.2.7.2. 727879_[id number] [facility] 2023-01-12 09:28:38 4957-25-77O00:28:38F ormatting of this note might be different from the original.Problem: Infection RiskGoal: Absence of infectionOutcome: Progressing as expected Problem: PainGoal: Control of pain at or below patient's documented comfort goalOutcome: Progressing as expectedGoal: Reduction in pain sensationOutcome: Progressing as expected Problem: Discharge PlanningGoal: Adequate for dischargeOutcome: Progressing as expectedGoal: Effective communicationOutcome: Progressing as expected 40450-6Enbx of care tnjdXU4157-39-31E53:28:40Plan of care noteTXT1.2.840.919354.1.13.104.2. 7.2.877241|8073941142RCQnjajzaxy for patient uckj25012-8GgifBQKJPVXPUT[address]TXTX[address] 963XDTAWSSXWOJHYABKGRPMOF0452-60- 02T09:28:401.2.840.155863.1.72.3. 15|1.2.840.973221.1.13.104.2.7.2. 727879_[id number] [facility] 2023-01-12 05:17:00 7815-07-62V20:17:00F ormatting of this note might be different from the original.Problem: Infection RiskGoal: Absence of infectionOutcome: Progressing as expected Problem: PainGoal: Control of pain at or below patient's documented comfort goalOutcome: Progressing as expectedGoal: Reduction in pain sensationOutcome: Progressing as expected Problem: Discharge PlanningGoal: Adequate for dischargeOutcome: Progressing as expectedGoal: Effective communicationOutcome: Progressing as expected 79903-9Ebaa of care nnbdRV9449-50-66S76:17:08Plan of care noteTXT1.2.840.178496.1.13.104.2. 7.2.798049|2614357617BJAhtmxlmol for patient xbor41096-0AlnjCHHMVCGUDH[address]TXTX[address] 867DWQPNWOVMDPUTVUCDAYZZN9061-33- 02T05:17:081.2.840.744452.1.72.3. 15|1.2.840.855689.1.13.104.2.7.2. 727879_[id number] [facility] 2023-01-12 01:43:06 9934-14-83C46:43:06F ormatting of this note might be different from the original.Report to lisy CURRIE on 9C. Pt awaiting transport 08060-6Upjolawym department MiwiST2509-18-72K38:43:18[facility] NoteTXT1.2.840.424188.1.13.104.2. 7.2.694915|[id number] for patient ctsq24722-4GglyFZ387021582Akyel McDougle RN[address]TXTX[address] 514VGFHWOOQQOOZUINCDYZLSY9809-73- 02T01:43:181.2.840.733533.1.72.3. 15|1.2.840.648830.1.13.104.2.7.2. 727879_[id number] Melvin Villegas RN [facility] 2023-01-12 01:10:30 5514-96-33W67:10:30F ormatting of this note might be different from the original.Attempted report, nurse unavailable, left callback number 17388-5Ocixtmtvf department XowlTC2582-27-23W54:10:42[facility] department NoteTXT1.2.840.671007.1.13.104.2. 7.2.399192|[id number] for patient mogj31286-7RwrgHFQBQNBNSE[address] KamhFvwsihorfAditkztyuHRHX1447239 402XVLRMUHGTPQSVRBEZOYXEP8522-48- 02T01:10:421.2.840.735331.1.72.3. 15|1.2.840.375785.1.13.104.2.7.2. 727879_[id number] [facility] 2023-01-12 00:24:49 8773-43-38X75:24:49F ormatting of this note might be different from the original.Surgery at bedside 16792-4Iypuhkdah department XvhhZN0225-16-90N22:24:56[facility] department NoteTXT1.2.840.571233.1.13.104.2. 7.2.932504|[id number] for patient plto23769-5KgxoIXGBWCWBUE[address]Gal[address]onGalvestonTXTX[address] 031EXJDOJOKREWXKLIBLTMEOM3734-52- 02T00:24:561.2.840.862531.1.72.3. 15|1.2.840.167645.1.13.104.2.7.2. 727879_[id number] [facility] 2023-01-11 23:08:11 5548-46-89W58:08:11F ormatting of this note might be different from the original. made aware of pt increased pain and nausea 19840-5Eptqixtpt department FwmsIT8099-98-30G19:08:21[facility] department NoteTXT1.2.840.308093.1.13.104.2. 7.2.783384|3884739419NZRttftbrpi for patient llod47281-2NbmpUBQRUGSFMP[address]TXTX[address] 743GRYZNTEZYMHUZROWEVIZJF5677-61- 01T23:08:211.2.840.721415.1.72.3. 15|1.2.840.035197.1.13.104.2.7.2. 727879_[id number] [facility] 2023-01-11 22:34:38 9546-27-54P49:34:38F ormatting of this note might be different from the original.Pt return from CT, warm blanket given 30514-6Murbaffot department WheuAS9051-92-21R99:34:49[facility] department NoteTXT1.2.840.600825.1.13.104.2. 7.2.224572|[id number] for patient kcfx32119-8DpfhQZTYTTNEOF[address]TX[address] 815PXEVUKGGADPLJQCZJFUYFW2784-92- 01T22:34:491.2.840.621482.1.72.3. 15|1.2.840.564465.1.13.104.2.7.2. 727879_[id number] [facility] 2023-01-11 22:18:01 7058-80-45S76:18:01F ormatting of this note might be different from the original.Pt to CT scan 43222-1Jqwevbxok department DxyyYD0087-78-87K12:18:08[facility] department NoteTXT1.2.840.941864.1.13.104.2. 7.2.270135|[id number] for patient eyxe15897-4EswqDJEJATBEXU[address]TXTX[address] 176WNHNSPJFGLLDTYKNHXQWEO3009-50- 01T22:18:081.2.840.710286.1.72.3. 15|1.2.840.207103.1.13.104.2.7.2. 727879_[id number] [facility] 2023-01-11 21:30:08 1515-59-38T62:30:08F ormatting of this note might be different from the original.Nikko Dyson is a 27 year old female who presents to ER for cc of RUQ LUQ abdominal pain radiating to RLQ, persistent nausea and diarrhea x 2 weeks. Pt had gallbladder removed and a portion of liver removed 1 mo ago. Pt followed up w her PCP, showing elevated liver enzymes, CT scan showing inflamed liver. Denies vomiting, denies blood in stool. 21109-3Nqcatgkea department QddqTH3953-77-92Q08:32:39[facility] NoteTXT1.2.840.363184.1.13.104.2. 7.2.063756|[id number] for patient xvmm39629-6IyudZGVSMNNNPJ[address]TX[address] 256ODDRCSSZQIDSVYQWCAVGGL5479-29- 01T21:32:391.2.840.218986.1.72.3. 15|1.2.840.971596.1.13.104.2.7.2. 727879_[id number] [facility] 2023-01-11 21:03:38 8278-20-81F07:03:38F ormatting of this note might be different from the original.Nikko Dyson is a 27 year old female here today c/o abdominal pain x 2 days. Pt denies N/V but reports diarrhea. Pt reports "9/10" pain at this time. Pt reports pain travels down right side abdomen. Pt is A&Ox4, NAD Noted. RR even/unlabored. 96963-1Kmunvhvcd department Triage yylnGL5660-41-16E17:05:23Emergen y department Triage noteTXT1.2.840.459487.1.13.104.2. 7.2.179359|[id number] for patient pxdz23652-0Efydrgaem department [address] 958GZSUGIIUICRICVBMHTAFZM5128-96- 01T21:05:231.2.840.837170.1.72.3. 15|1.2.840.188703.1.13.104.2.7.2. 727879_[id number] [facility] 2023-01-11 20:44:00 1837-70-59V81:44:00F ormatting of this note is different from the original.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 Due to the worsening discomfort patient has, for further evaluation at [facility]. Patient states that during her cholecystectomy [...] when she sits up. Patient has discontinued Deputy and anxiety medication due to concern for her liver. 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 METABOLIC PANEL (24391) TOTAL BETA HCG ASSAY EXTRA TUBE ORANGE EXTRA TUBE LAV EKG:If EKG completed, see Procedure Note. Orders and Treatments:Orders Placed This Encounter Procedures CT ABDOMEN PELVIS W CONTRAST POCT TEST URINALYSIS LIPASE COMP. METABOLIC PANEL (82150) TOTAL BHCG (QUANTITATIVE) Orders Placed This Encounter [...] mouth every 6 (six) hours as needed. BKSRVLXVQW-BRJRPQHPNNEDK-QPGJ (FIORICET) 50-300-40 MG PER CAPSULE Take 1 [...] in the Gallbladder fossa, post-recent cholecystectomy in [place].General surgery was consulted and admitted the patient for further workup and management. 76178-7Blmftinmy Emergency department [id number], Jeremy1.2.840.347512.1.13.104.2.7 .2.363645OylsmwRgwjcePP7510-67-95 T07:17:19Physician Emergency department NoteTXT1.2.840.995122.1.13.104.2. 7.2.656562|[id number] for patient etvw06065-6Uzobfzapy department NoteLN[address]TXTX[address] 057PBSYNHTNRFWBYTTIDFEKRH4926-08- 02T07:17:191.2.840.015357.1.72.3. 15|1.2.840.305310.1.13.104.2.7.2. 727879_[id number] [facility] 2022-12-03 08:57:03 4430-06-73D69:57:03F ormatting of this note might be different from the original.Patient has an appointment 12/12/22.Blayne Silva RN 12/03/2022 8:57 AM 30521-3Hkrogtfln encounter IlmsIU1384-50-08Q62:57:18Telephon e encounter NoteTXT1.2.840.581062.1.13.104.2. 7.2.796776|[id number] for patient vfcw404148400Shzxosl Collins RNUT[address]TXTX[address] 001GIWWRFHUSZXFTHCSGTFIAV9156-56- 24T08:57:181.2.840.546013.1.72.3. 15|1.2.840.971546.1.13.104.2.7.2. 727879_[id number] Blayne Silva RN [facility]
[2023-10-10] MEDS ORDERED: NA CHLORIDE 0.9% 1,000 ML ONE (08:32)
[2023-10-10] MEDS ORDERED: CYCLOBENZAPRINE 10 MG TAB ONE (08:32)
[2023-10-10] MEDS ORDERED: ONDANSETRON 4 MG/2 ML VIAL ONE (08:32)
[2023-10-10] MEDS ORDERED: MORPHINE 4 MG/ML SYR ONE (08:32)
[2023-10-10 08:54] LABS: Absolute Eosinophils 0.1 K/uL (0-0.5); Absolute Lymphocytes (CBC) 1.5 K/uL (0.7-4.9); Absolute Monocytes 0.2 K/uL (0.1-1.3); Basophils % 0.6 % (0-1.3); Eosinophils % 2.5 % (0-4.4); Hematocrit 41.9 % (36.0-45.0); Hemoglobin 14.1 g/dL (12.0-15.0); MCH 29.4 pg (27.0-35.0); MCHC 33.5 g/dL (32.0-36.0); MCV 87.8 fL (80-100); MPV 7.9 fL (7.6-11.3); Monocytes % 6.2 % (3.3-12.3); Neutrophils % 51.7 % (41.7-73.7); Platelets 325 thou/uL (152-406); RBC Red Blood Cell Count 4.78 M/uL (3.86-4.86)
[2023-10-10 09:11] LABS: Albumin 4.3 g/dL (3.4-5.0); Albumin/Globulin Ratio 1.1 (1.1-1.8); Bilirubin Total 0.5 mg/dL (0.2-1.0); Globulin 3.8 g/dL (2.3-3.5); Protein, Total 8.1 g/dL (6.4-8.2)
[2023-10-10 09:20] LABS: Specific Gravity 1.007 (1.005-1.030); Sqamous Epithelial 20-50 /HPF (None Seen); Urine Bacteria None Seen /HPF (<20); Urine Bilirubin NEGATIVE (Negative); Urine Blood 1+ (Negative); Urine Clarity Extremely Turbid (Clear); Urine Color Colorless (Yellow); Urine Culture Reflex Order NOT NEEDED; Urine Glucose NEGATIVE (Negative); Urine Ketones NEGATIVE (Negative); Urine Micro Reflex YN NO BILL MICROSCOPIC; Urine Mucus Slight /HPF (None Seen); Urine Nitrite NEGATIVE (Negative); Urine Protein NEGATIVE (Negative); Urine RBC <5 /HPF (None Seen); Urine Urobilinogen Normal (Normal); Urine WBC <5 /HPF (<5)
[2023-10-10] MEDS ORDERED: HYDROCODONE/APAP 5/325 MG TAB ONE (10:28)
--- NOTE | 2023-10-10 10:28 | EDPHYS ---
Physician Documentation [facility] Name: Natanael Dyson Age: 28 yrs Sex: Female : 1995 Arrival Date: 10/10/2023 Time: 08:02 Bed 5 Private MD: ED Physician Edmond Koo HPI: 10/09 08:37 This 28 yrs old Female presents to ER via Ambulatory with complaints of Back Pain. rt 08:37 Patient presents to the ED with 3 days of low back pain. Patient has had multiple rt evaluations for the same. The patient denies other acute complaints at this time. Symptoms are moderate in severity, no other aggravating relieving factors. Tylenol has not adequately improve her symptoms.. Historical: - Allergies: 08:11 Toradol; vc1 08:11 Reglan; vc1 08:11 NSAIDS NON STEROIDAL ANTI INFLAMMATORY DRUG; vc1 08:11 Haldol; vc1 08:11 Compazine; vc1 - PMHx: 08:11 Anxiety; breast cancer; depressive disorder; Kidney stone; nephritis; vc1 - PSHx: 08:11 Cholecystectomy; Ligation of fallopian tube; vc1 - Immunization history:: Adult Immunizations up to date. - Infectious Disease History:: Denies. - Social history:: Smoking status: unknown. - Family history:: not pertinent. ROS: 08:37 Constitutional: Negative for fever, chills, and weight loss, Cardiovascular: Negative rt for chest pain, palpitations, and edema, Respiratory: Negative for shortness of breath, cough, wheezing, and pleuritic chest pain, Abdomen/GI: Negative for abdominal pain, nausea, vomiting, diarrhea, and constipation, Skin: Negative for injury, rash, and discoloration, Neuro: Negative for headache, weakness, numbness, tingling, and seizure, 08:37 Back: Positive for pain at rest, pain with movement, Exam: 08:37 Constitutional: This is a well developed, well nourished patient who is awake, alert, rt and in no acute distress. Head/Face: Normocephalic, atraumatic. Chest/axilla: Normal chest wall appearance and motion. Nontender with no deformity. No lesions are appreciated. Cardiovascular: Regular rate and rhythm with a normal S1 and S2. No gallops, murmurs, or rubs. Normal PMI, no JVD. No pulse deficits. Respiratory: Lungs have equal breath sounds bilaterally, clear to auscultation and percussion. No rales, rhonchi or wheezes noted. No increased work of breathing, no retractions or nasal flaring. Abdomen/GI: Soft, non-tender, with normal bowel sounds. No distension or tympany. No guarding or rebound. No evidence of tenderness throughout. Skin: Warm, dry with normal turgor. Normal color with no rashes, no lesions, and no evidence of cellulitis. MS/ Extremity: Pulses equal, no cyanosis. Neurovascular intact. Full, normal range of motion. Neuro: Awake and alert, GCS 15, oriented to person, place, time, and situation. Cranial nerves II-XII grossly intact. Motor strength 5/5 in all extremities. Sensory grossly intact. Cerebellar exam normal. Normal gait. 08:37 Back: Midline tenderness to the lower lumbar region, Vital Signs: 08:11 BP 156 / 134; Pulse 133; Resp 20; Temp 98.3; Pulse Ox 100% ; vc1 08:30 BP 120 / 77; Pulse 89; Resp 16; Pulse Ox 100% ; ko1 08:59 BP 121 / 89; Pulse 119; Resp 16; Pulse Ox 100% ; ko1 10:41 BP 108 / 72; Pulse 82; Resp 16; Pulse Ox 100% ; ko1 MDM: 08:19 Patient medically screened. rt 10:29 Differential diagnosis: Kidney stone, pyelo-, mechanical back pain, renal dysfunction. rt Data reviewed: vital signs, nurses notes, lab test result(s). I considered the following discharge prescriptions or medication management in the emergency department Medications were administered in the Emergency Department. See MAR. Test considered but Not performed: CT: Patient with at least 50 CT scans in our system, with no blood in the urine, signs of infection, normal renal function, I believe that risks of ongoing radiation exposures is greater than risk of missed pathology.. Care significantly affected by the following chronic conditions: Chronic back pain, kidney stones. Counseling: I had a detailed discussion with the patient and/or guardian regarding the historical points, exam findings, and any diagnostic results supporting the discharge/admit diagnosis, lab results, the need for outpatient follow up, to return to the emergency department if symptoms worsen or persist or if there are any questions or concerns that arise at home. Response to treatment: the patient's symptoms have mildly improved after treatment. 10/09 08:29 Order name: UAM; Complete Time: :43 rt 10/09 08:29 Order name: CBC with Diff; Complete Time: 43 rt 10/09 08:29 Order name: CMP; Complete Time: :43 rt Administered Medications: 08:40 Drug: Cyclobenzaprine PO 10 mg PO once Route: PO; ko1 09:21 Follow up: Response: No adverse reaction ko1 09:02 Drug: morphine IVP or IV 4 mg IVP once over 4 mins Route: IVP; Infused Over: 4 mins; ko1 Site: left antecubital; 09:17 Follow up: Response: No adverse reaction; Pain is decreased ko1 09:17 Follow up: Response: RASS: Alert and Calm (0) ko1 09:02 Drug: Ondansetron IVP 4 mg IVP once; over 2 minutes Route: IVP; Site: left antecubital; ko1 09:17 Follow up: Response: No adverse reaction ko1 09:02 Drug: NS 0.9% IV 1000 ml IV at 1 bolus Per protocol; 1000 mL bolus Route: IV; Rate: 1 ko1 bolus; Site: left antecubital; 10:30 Follow up: Response: No adverse reaction; IV Status: Completed infusion; IV Intake: ko1 1000ml 10:27 Drug: HYDROcodone-acetaminophen PO 5 mg-325 mg 1 tabs PO once Route: PO; ko1 10:40 Follow up: Response: No adverse reaction ko1 Disposition Summary: 10/10/23 10:27 Discharge Ordered Notes: Location: Home rt Problem: an ongoing problem rt Symptoms: have improved rt Condition: Stable rt Diagnosis - Low back pain rt Followup: rt - With: Private Physician - When: 2 - 3 days - Reason: Discharge Instructions: - Discharge Summary Sheet rt - Chronic Back Pain rt Forms: - Medication Reconciliation Form rt - Antibiotic Education rt - Prescription Opioid Use rt - Patient Portal Instructions rt - Leadership Thank You Letter rt Prescriptions: - Cyclobenzaprine 5 mg Oral Tablet - take 1 tablet ORAL route 3 times per day As needed; 15 tablet; Refills: 0, rt Product Selection Permitted Signatures: Dispatcher [employer] Eboni Michel RN RN vc1 Pam Frausto RN RN ko1 Edmond Koo, MD rt
--- NOTE | 2023-10-10 10:28 | ER ---
Nurse's Notes [facility] Name: Natanael Dyson Age: 28 yrs Sex: Female : 1995 Arrival Date: 10/10/2023 Time: 08:02 Bed 5 Private MD: Diagnosis: Low back pain Presentation: 10/09 08:11 Chief complaint: Patient states: LUMBAR PAIN x3 DAYS. Coronavirus screen: At this time, vc1 the client does not indicate any symptoms associated with coronavirus-19. Ebola Screen: No symptoms or risks identified at this time. Initial Sepsis Screen: Does the patient meet any 2 criteria? HR > 90 bpm. No. Patient's initial sepsis screen is negative. Does the patient have a suspected source of infection? No. Patient's initial sepsis screen is negative. Risk Assessment: Do you want to hurt yourself or someone else? Patient reports no desire to harm self or others. Onset of symptoms is unknown. 08:11 Method Of Arrival: Ambulatory vc1 08:11 Acuity: THIERNO 3 vc1 Triage Assessment: 08:15 General: Appears uncomfortable, Behavior is cooperative, appropriate for age, anxious. bp Pain: Complains of pain in low back area. EENT: No deficits noted. Neuro: No deficits noted. Cardiovascular: No deficits noted. Respiratory: No deficits noted. GI: No signs and/or symptoms were reported involving the gastrointestinal system. : Reports pain in lower back. Derm: No deficits noted. Musculoskeletal: Circulation, motion, and sensation intact. Range of motion: intact in all extremities. Historical: - Allergies: 08:11 Toradol; vc1 08:11 Reglan; vc1 08:11 NSAIDS NON STEROIDAL ANTI INFLAMMATORY DRUG; vc1 08:11 Haldol; vc1 08:11 Compazine; vc1 - PMHx: 08:11 Anxiety; breast cancer; depressive disorder; Kidney stone; nephritis; vc1 - PSHx: 08:11 Cholecystectomy; Ligation of fallopian tube; vc1 - Immunization history:: Adult Immunizations up to date. - Infectious Disease History:: Denies. - Social history:: Smoking status: unknown. - Family history:: not pertinent. Screenin:15 [facility] ED Fall Risk Assessment (Adult) History of falling in the last 3 months, bp including since admission No falls in past 3 months (0 pts). Abuse screen: Denies threats or abuse. Denies injuries from another. Nutritional screening: No deficits noted. Tuberculosis screening: No symptoms or risk factors identified. Assessment: 08:15 General: Appears distressed, obese, Behavior is cooperative, appropriate for age, bp anxious. Pain: Complains of pain in low back area. Neuro: Level of Consciousness is awake, alert, obeys commands, Oriented to Appropriate for age. Cardiovascular: Rhythm is sinus tachycardia. Respiratory: No deficits noted. GI: No signs and/or symptoms were reported involving the gastrointestinal system. : No signs and/or symptoms were reported regarding the genitourinary system. EENT: No deficits noted. Derm: No deficits noted. Musculoskeletal: No deficits noted. Vital Signs: 08:11 BP 156 / 134; Pulse 133; Resp 20; Temp 98.3; Pulse Ox 100% ; vc1 08:30 BP 120 / 77; Pulse 89; Resp 16; Pulse Ox 100% ; ko1 08:59 BP 121 / 89; Pulse 119; Resp 16; Pulse Ox 100% ; ko1 10:41 BP 108 / 72; Pulse 82; Resp 16; Pulse Ox 100% ; ko1 ED Course: 08:05 Patient arrived in ED. mg5 08:06 Edmond Koo MD is Attending Physician. rt 08:12 Triage completed. vc1 08:15 Arm band placed on. bp 08:15 Patient has correct armband on for positive identification. Bed in low position. Call bp light in reach. 08:30 Pam Frausto, RN is Primary Nurse. ko1 08:30 Provided Education on: call light. Client placed on continuous cardiac and pulse ko1 oximetry monitoring. NIBP monitoring applied. monitoring analyst on. Door closed. Noise minimized. Lights dimmed. Warm blanket given. Pillow given. Assisted to bathroom. 08:30 No provider procedures requiring assistance completed. ko1 08:36 PREGU Sent. ko1 08:36 UAM Sent. ko1 08:49 Inserted saline lock: 22 gauge in left antecubital area, using aseptic technique. Blood zm collected. 08:50 Initial lab(s) drawn, by me, sent to lab. zm 08:50 CMP Sent. zm 08:50 CBC with Diff Sent. zm 08:50 UAM Sent. zm 09:00 Assisted to bathroom. ko1 09:30 Warm blanket given. Assisted to bathroom. ko1 10:41 IV discontinued, intact, bleeding controlled, No redness/swelling at site. Pressure ko1 dressing applied. Administered Medications: 08:40 Drug: Cyclobenzaprine PO 10 mg PO once Route: PO; ko1 09:21 Follow up: Response: No adverse reaction ko1 09:02 Drug: morphine IVP or IV 4 mg IVP once over 4 mins Route: IVP; Infused Over: 4 mins; ko1 Site: left antecubital; :17 Follow up: Response: No adverse reaction; Pain is decreased ko1 :17 Follow up: Response: RASS: Alert and Calm (0) ko1 09:02 Drug: Ondansetron IVP 4 mg IVP once; over 2 minutes Route: IVP; Site: left antecubital; ko1 09:17 Follow up: Response: No adverse reaction ko1 09: Drug: NS 0.9% IV 1000 ml IV at 1 bolus Per protocol; 1000 mL bolus Route: IV; Rate: 1 ko1 bolus; Site: left antecubital; 10:30 Follow up: Response: No adverse reaction; IV Status: Completed infusion; IV Intake: ko1 1000ml 10:27 Drug: HYDROcodone-acetaminophen PO 5 mg-325 mg 1 tabs PO once Route: PO; ko1 10:40 Follow up: Response: No adverse reaction ko1 Medication: 08:15 VIS not applicable for this client. bp Intake: 10:30 IV: 1000ml; Total: 1000ml. ko1 Outcome: 10:27 Discharge ordered by . rt 10:41 Discharged to home ambulatory, ko1 10:41 Condition: improved 10:41 Discharge instructions given to patient, Instructed on discharge instructions, follow up and referral plans. medication usage, Demonstrated understanding of instructions, follow-up care, medications, Prescriptions given X 1, 10:42 Patient left the ED. ko1 Signatures: Jayy Wooten RN Eboni Coburn RN RN 1 Connie Win Kathy, RN RN ko1 Edmond Koo MD MD rt Lashanda Fitch mg5
[2023-10-10 10:59] VITALS: BP 108/72; TEMP 98.3; O2SAT 100
== END 2023-10-10 10:42 | disposition home or self-care (01) ==
LOC: ER 08:02
DX: M54.50 Low back pain, unspecified (principal)
CPT/HCPCS: 96361; 85025; 81001; 36415; 80053; 96375; 96374; 99285; J2405; J7030

== ENCOUNTER 2023-10-26 07:22 | Emergency (ER) | payer OTHER ==
--- OUTSIDE RECORDS SUMMARY | 2023-10-26 07:40 | XMS REPORT | Continuity of Care Document ---
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 Slow IV Push, ONCE, 1 dose, On Sat09/05/22 at 1030, Routine [facility] NaCl 0.9% (NS) bolus infusion 1,000 mL 09-05 15:00: 00 09-05 17:12 :00 No 1000mL at 999 mL/hr, 1,000 mL, IV Infusion, ONCE, 1 dose, On Sat09/05/22 at 1000, STAT [facility] methylpredn isolone sod succ (SOLU-MEDRO L) injection 125 mg 09-05 14:45: 00 09-05 14:35 :00 No 125mg 125 mg, Intravenou s, ONCE, 1 dose, On Sat09/05/22 at 0945, 2 mL [facility] butalbital- acetaminoph en-caff (ESGIC) 50-325-40 mg tablet 1 tablet 09-05 14:00: 00 09-05 14:34 :00 No 1{tbl} 1 tablet, Oral, ONCE, 1 dose, On Sat09/05/22 at 0900, [place] [facility] diphenhydrA MINE (BENADRYL) injection 25 mg 09-05 14:00: 00 09-05 14:39 :00 No 25mg 25 mg, Slow IV Push, ONCE, 1 dose, On Sat09/05/22 at 0900, STAT [facility] proMETHazin e (PHENERGAN) 12.5 mg in NaCl 0.9% (NS) 50 mL IV piggyback 09-05 14:00: 00 09-05 14:40 :00 No 12.5mg 12.5 mg, IV Piggyback, ONCE, 1 dose, On Sat09/05/22 at 0900, [place] [facility] carvediloL 25 mg tablet 09-05 00:00: 00 Yes [id number] 25mg Take 1 tablet by mouth in the morning and 1 tablet in the evening. Take with meals. [facility] losartan 50 mg tablet 09-05 00:00: 00 Yes [id number] 50mg Take 1 tablet by mouth in the morning and 1 tablet in the evening. [facility] ibuprofen 800 mg tablet 08-05 00:00: 00 Yes 800mg Take 1 tablet by mouth 3 (three) times daily as needed. [facility] cyclobenzap rine 10 mg tablet 08-05 00:00: 00 Yes 10mg Take 1 tablet by mouth 3 (three) times daily as needed. [facility] maalox:diph enhydrAMINE :lidocaine 2 % viscous 1:1:1 ([facility]) oral suspension 15 mL 08-01 00:45: 00 08-01 00:44 :00 No 15mL 15 mL, Oral, ONCE, 1 dose, On Sat07/31/22 at 1945, [place] [facility] ketorolac (TORADOL) injection 15 mg 08-01 00:15: 00 08-01 00:44 :00 No 15mg 15 mg, Slow IV Push, ONCE, 1 dose, On Sat07/31/22 at 1914, Routine [facility] ondansetron (ZOFRAN (PF)) injection 4 mg 08-01 00:15: 00 08-01 00:46 :00 No 4mg 4 mg, Slow IV Push, ONCE, 1 dose, On Sat07/31/22 at 1914, [place] [facility] famotidine (PEPCID (PF)) injection 20 mg 08-01 00:15: 00 08-01 00:46 :00 No 20mg 20 mg, Slow IV Push, ONCE, 1 dose, On Sat07/31/22 at 1914, [place] [facility] ondansetron 4 mg disintegrat ing tablet 07-31 00:00: 00 05-19 00:00 :00 No [id number] 4mg Take 1 tablet by mouth every 8 (eight) hours as needed for Nausea and Vomiting (N/V). [facility] sucralfate 1 gram tablet 07-31 00:00: 00 05-19 00:00 :00 No [id number] 1g Take 1 tablet by mouth before meals and at bedtime. [facility] pantoprazol e 40 mg EC tablet 07-31 00:00: 00 08-15 04:59 :00 No [id number] 40mg Take 1 tablet by mouth in the morning for 14 days. [facility] tamsulosin 0.4 mg 24 hr capsule 07-25 00:00: 00 Yes .4mg Take 1 capsule by mouth in the morning. [facility] traMADoL 50 mg tablet 07-23 00:00: 00 Yes 50mg Take 1 tablet by mouth. [facility] ibuprofen 600 mg tablet 07-15 00:00: 00 07-31 00:00 :00 No [id number] 600mg Take 1 tablet by mouth every 6 (six) hours as needed for Pain (scale 4-6). [facility] citalopram 10 mg tablet 06-29 00:00: 00 Yes 10mg Take 1 tablet by mouth in the morning. [facility] QUEtiapine 400 mg tablet 06-29 00:00: 00 Yes [facility] gabapentin 600 mg tablet 06-29 00:00: 00 Yes [facility] methylPREDN ISolone (MEDROL, ANABELA,) 4 mg tablets 06-23 00:00: 00 Yes [id number] Take by mouth SEE-INSTRU CTIONS. follow package directions [facility] bromphenira mine-pseudo ephedrine-D M (BROMFED DM) 2-30-10 mg/5 mL syrup 06-23 00:00: 00 07-04 05:59 :00 No [id number] 5mL Take 5 mL by mouth 4 (four) times daily as needed for Cold symptoms for up to 10 days. [facility] methocarbam oL 750 mg tablet 06-23 00:00: 00 07-01 05:59 :00 No [id number] 750mg Take 1 tablet by mouth 4 (four) times daily for 7 days. [facility] magnesium sulfate in water 2 gram/50 mL (4 %) infusion 2 g 2021-05 21:00: 00 05-05 21:15 :00 No 2g 2 g, IV Piggyback, Administer over 15 Minutes, ONCE, 1 dose, On 05/05/22 at 1500, [place] [facility] butalbital- acetaminoph en-caff (ESGIC) 50-325-40 mg tablet 1 tablet 2021-05 20:15: 00 05-05 20:56 :00 No 1{tbl} 1 tablet, Oral, ONCE, 1 dose, On 05/05/22 at 1415, [place] [facility] dexamethaso ne sod phos PF injection 10 mg 2021-05 20:15: 00 05-05 21:00 :00 No 10mg 10 mg, Slow IV Push, ONCE, 1 dose, On 05/05/22 at 1415, 1 mL [facility] NaCl 0.9% (NS) bolus infusion 1,000 mL 2021-05 20:00: 00 05-05 21:45 :00 No 1000mL at 999 mL/hr, 1,000 mL, IV Infusion, ONCE, 1 dose, On 05/05/22 at 1400, [place] [facility] diphenhydrA MINE (BENADRYL) injection 25 mg 2021-05 19:15: 00 05-05 19:42 :00 No 25mg 25 mg, Slow IV Push, ONCE, 1 dose, On 05/05/22 at 1315, STAT [facility] ondansetron (ZOFRAN (PF)) injection 4 mg 2021-05 19:15: 00 05-05 19:45 :00 No 4mg 4 mg, Slow IV Push, ONCE, 1 dose, On 05/05/22 at 1315, [place] [facility] ketorolac (TORADOL) injection 30 mg 2021-05 19:15: 00 05-05 19:44 :00 No 30mg 30 mg, Slow IV Push, ONCE, 1 dose, On 05/05/22 at 1315, Routine [facility] butalbital- acetaminoph en-caff 50-325-40 mg tablet 2021-05 00:00: 00 Yes [id number] 1{tbl} Take 1 tablet by mouth every 4 (four) hours as needed for Pain (scale 7-10). [facility] HYDROcodone -acetaminop hen (NORCO) 10-325 mg tablet 1 tablet 2021-05 16:30: 00 04-26 15:23 :00 No 1{tbl} 1 tablet, Oral, ONCE, 1 dose, On Kathie 04/26/22 at 1030, Routine [facility] diphenhydrA MINE (BENADRYL) tablet 25 mg 2021-05 15:45: 00 04-26 15:53 :00 No 25mg 25 mg, Oral, ONCE, 1 dose, On Kathie 04/26/22 at 0945, [place] [facility] NaCl 0.9% (NS) bolus infusion 1,000 mL 2021-05 15:45: 00 04-26 15:55 :00 No 1000mL at 999 mL/hr, 1,000 mL, IV Piggyback, ONCE, 1 dose, On Kathie 04/26/22 at 0945, STAT [facility] ondansetron (ZOFRAN (PF)) injection 4 mg 2021-05 14:45: 00 04-26 14:52 :00 No 4mg 4 mg, Slow IV Push, ONCE, 1 dose, On Kathie 04/26/22 at 0845, Routine [facility] cephALEXin (KEFLEX) 500 mg capsule 2021-05 00:00: 00 05-04 05:59 :00 No [id number] 500mg Take 1 capsule by mouth in the morning and 1 capsule at noon and 1 capsule in the evening. Do all this for 7 days. [facility] ondansetron (ZOFRAN) 4 mg tablet 2021-05 00:00: 00 07-31 00:00 :00 No 4mg Take 1 tablet by mouth every 8 (eight) hours as needed for Nausea and Vomiting (N/V). [facility] galcanezuma b-gnlm prefilled (EMGALITY) subcutaneou s injection 2021-05 00:00: 00 Yes [id number] 120mg inject 120 mg under the skin once every month. [facility] methocarbam oL (ROBAXIN) injection 1,000 mg 2021-05 04:00: 00 Yes 1000mg 1,000 mg, Intravenou s, Q8H, First dose on 04/07/22 at 2200, Until Discontinu ed, Routine [facility] ketorolac (TORADOL) injection 30 mg 2021-05 00:45: 00 04-07 23:45 :00 No 30mg 30 mg, Slow IV Push, ONCE, 1 dose, On 04/07/22 at 1845, Routine [facility] HYDROcodone -acetaminop hen (NORCO) 10-325 mg tablet 1 tablet 2021-05 00:30: 00 04-07 23:45 :00 No 1{tbl} 1 tablet, Oral, ONCE NOW, 1 dose, On 04/07/22 at 1830, Routine [facility] diphenhydrA MINE (BENADRYL) injection 12.5 mg 2021-05 23:45: 00 04-07 23:46 :00 No 12.5mg 12.5 mg, Slow IV Push, ONCE, 1 dose, On 04/07/22 at 1745, STAT [facility] butorphanol (STADOL) injection 1 mg 2021-05 23:15: 00 04-07 22:48 :00 No 1mg 1 mg, IV Push, ONCE, 1 dose, On 04/07/22 at 1715, Routine [facility] NaCl 0.9% (NS) bolus infusion 1,000 mL 2021-05 23:15: 00 04-07 23:49 :00 No 1000mL at 999 mL/hr, 1,000 mL, IV Infusion, ONCE, 1 dose, On 04/07/22 at 1715, [place] [facility] ketorolac (TORADOL) injection 15 mg 2021-05 19:30: 00 03-24 18:45 :00 No 15mg 15 mg, Slow IV Push, ONCE, 1 dose, On 03/24/22 at 1330, Routine [facility] butorphanol (STADOL) injection 1 mg 2021-05 18:00: 00 03-24 17:26 :00 No 1mg 1 mg, Intravenou s, ONCE, 1 dose, On 03/24/22 at 1200, Routine [facility] proMETHazin e (PHENERGAN) 25 mg in NaCl 0.9% (NS) 50 mL IV piggyback 2021-05 18:00: 00 03-24 18:13 :00 No 25mg 25 mg, IV Piggyback, ONCE, 1 dose, On 03/24/22 at 1200, [place] [facility] butorphanol (STADOL) injection 1 mg 2021-05 17:15: 00 03-24 16:26 :00 No 1mg 1 mg, IV Push, ONCE, 1 dose, On 03/24/22 at 1115, Routine [facility] diphenhydrA MINE (BENADRYL) injection 25 mg 2021-05 15:30: 00 03-24 15:40 :00 No 25mg 25 mg, Slow IV Push, ONCE, 1 dose, On 03/24/22 at 0930, STAT [facility] ondansetron (ZOFRAN (PF)) injection 4 mg 2021-05 15:30: 00 03-24 14:25 :00 No 4mg 4 mg, Slow IV Push, ONCE, 1 dose, On 03/24/22 at 0930, [place] [facility] NaCl 0.9% (NS) IV infusion 1,000 mL 2021-05 15:15: 00 03-24 17:25 :00 No 1000mL at 999 mL/hr, Intravenou s, ONCE, 1 dose, On 03/24/22 at 0915, [facility] magnesium sulfate in water 2 gram/50 mL (4 %) infusion 2 g 2021-05 15:00: 00 03-24 14:47 :00 No 2g 2 g, IV Piggyback, Administer over 20 Minutes, ONCE, 1 dose, On 03/24/22 at 0900, Routine [facility] dexamethaso ne sod phos PF injection 6 mg 2021-05 14:15: 00 03-24 14:14 :00 No 6mg 6 mg, Slow IV Push, ONCE, 1 dose, On 03/24/22 at 0815, 1 mL [facility] diphenhydrA MINE (BENADRYL) injection 25 mg 2021-05 14:15: 00 03-24 14:16 :00 No 25mg 25 mg, Slow IV Push, ONCE, 1 dose, On 03/24/22 at 0815, STAT [facility] ALBUTEROL INHALE 2021-05 07:58: 13 03-24 00:00 :00 No [facility] rizatriptan 10 mg tablet 2021-05 00:00: 00 Yes [id number] 10mg Take 1 tablet by mouth as needed for Migraine. May repeat in 2 hours if needed [facility] Butalbital- Acetaminoph en-Caff (FIORICET) 50-300-40 mg per capsule 2021-05 00:00: 00 Yes [id number] 1{capsu le} Take 1 capsule by mouth every 6 (six) hours as needed for Other (headache) . [facility] magnesium oxide 200 mg magnesium Tab 2021-05 00:00: 00 04-07 00:00 :00 No [id number] 200mg Take 200 mg by mouth 2 (two) times daily. Indication s: headache [facility] SUMAtriptan 50 mg tablet 2021-05 00:00: 00 Yes 50mg Take 1 tablet by mouth as needed for Migraine. Take one tablet at onset of migraine, may take another tablet 2 hours after initial dose if no relief with first dose. DO NOT EXCEED 100mg in a 24 hour period. [facility] FENTanyl PF (SUBLIMAZE (PF)) injection 50 mcg 2021-05 15:30: 00 03-15 14:56 :00 No 50ug 50 mcg, Slow IV Push, ONCE, 1 dose, On Kathie 03/15/22 at 1030, Routine [facility] proMETHazin e (PHENERGAN) tablet 25 mg 2021-05 14:45: 00 03-15 14:55 :00 No 25mg 25 mg, Oral, ONCE, 1 dose, On Kathie 03/15/22 at 0945, [place] [facility] FENTanyl PF (SUBLIMAZE (PF)) injection 50 mcg 2021-05 14:45: 00 03-15 13:58 :00 No 50ug 50 mcg, Slow IV Push, ONCE, 1 dose, On [facility] 03/15/22 at 0945, Routine [facility] ondansetron (ZOFRAN (PF)) injection 4 mg 2021-05 14:00: 00 03-15 13:58 :00 No 4mg 4 mg, Slow IV Push, ONCE, 1 dose, On [facility] 03/15/22 at 0900, [place] [facility] carvediloL 25 mg tablet 2021-05 00:00: 00 09-05 00:00 :00 No [id number] 25mg Take 1 tablet by mouth in the morning and 1 tablet in the evening. Take with meals. [facility] ondansetron 4 mg disintegrat ing tablet 2021-05 00:00: 00 04-07 00:00 :00 No [id number] 4mg Take 1 tablet by mouth every 8 (eight) hours as needed for Nausea and Vomiting (N/V). [facility] ketorolac 10 mg tablet 2021-05 00:00: 00 04-07 00:00 :00 No [id number] 10mg Take 1 tablet by mouth every 6 (six) hours as needed for Pain (scale 7-10). [facility] proMETHazin e 25 mg tablet 2021-05 00:00: 00 04-07 00:00 :00 No [id number] 25mg Take 1 tablet by mouth every 6 (six) hours as needed for N/V unresponsi ve to Ondansetro n. [facility] cephALEXin 500 mg capsule 2021-05 00:00: 00 03-19 05:59 :00 No [id number] 500mg Take 1 capsule by mouth 4 (four) times daily for 3 days. [facility] predniSONE 20 mg tablet 2021-05 0-31 00:00: 00 03-15 04:59 :00 No [id number] 20mg Take 1 tablet by mouth in the morning for 2 days. [facility] methocarbam oL (ROBAXIN) tablet 500 mg 2021-05 16:45: 00 03-11 17:08 :00 No 500mg 500 mg, Oral, ONCE, 1 dose, On 03/11/22 at 1200, [place] [facility] dexamethaso ne sod phos PF injection 10 mg 2021-05 16:00: 00 03-11 16:00 :00 No 10mg 10 mg, Slow IV Push, ONCE, 1 dose, On 03/11/22 at 1100, 1 mL [facility] diphenhydrA MINE (BENADRYL) injection 25 mg 2021-05 15:46: 00 03-11 16:00 :00 No 25mg 25 mg, Slow IV Push, ONCE, 1 dose, On Sat03/11/22 at 1100, STAT [facility] NaCl 0.9% (NS) IV infusion 1,000 mL 2021-05 15:45: 00 03-11 16:04 :00 No 1000mL at 999 mL/hr, Intravenou s, ONCE, 1 dose, On Sat03/11/22 at 1045, Routine [facility] butalbital- acetaminoph en-caff (ESGIC) 50-325-40 mg tablet 1 tablet 2021-05 15:00: 00 03-11 15:05 :00 No 1{tbl} 1 tablet, Oral, ONCE, 1 dose, On 03/11/22 at 1015, [place] [facility] ketorolac (TORADOL) injection 15 mg 2021-05 14:45: 00 03-11 15:05 :00 No 15mg 15 mg, Slow IV Push, ONCE, 1 dose, On 03/11/22 at 0945, [place] [facility] proMETHazin e (PHENERGAN) 12.5 mg in NaCl 0.9% (NS) 50 mL IV piggyback 2021-05 14:45: 00 03-11 15:04 :00 No 12.5mg 12.5 mg, IV Piggyback, ONCE, 1 dose, On 03/11/22 at 0945, [place] [facility] proMETHazin e 25 mg tablet 2021-05 00:00: 00 07-31 00:00 :00 No [id number] 25mg Take 1 tablet by mouth every 6 (six) hours as needed for Nausea and Vomiting (N/V). [facility] methocarbam oL 500 mg tablet 2021-05 00:00: 00 04-07 00:00 :00 No [id number] 500mg Take 1 tablet by mouth 3 (three) times daily as needed for Pain (scale 7-10). [facility] topiramate 25 mg tablet 2021-05 00:00: 00 Yes [id number] 100mg Take 4 tablets by mouth in the morning. [facility] diphenhydrA MINE 25 mg capsule 2021-05 09:39: 59 02-27 00:00 :00 No 25mg Take 25 mg by mouth every 6 (six) hours as needed for Allergies. [facility] citalopram hydrobromid e (CITALOPRAM ORAL) 2021-05 09:39: 49 02-27 00:00 :00 No Take by mouth. [facility] carbamazepi ne (TEGRETOL ORAL) 2021-05 09:39: 28 02-27 00:00 :00 No Take by mouth. [facility] albuterol 90 mcg/actuati on inhaler 2021-05 00:00: 00 Yes [id number] 2{puff} Inhale 2 Puffs every 6 (six) hours as needed for Wheezing or Shortness of Breath. [facility] SUMAtriptan 50 mg tablet 2021-05 00:00: 00 03-21 00:00 :00 No 50mg Take 50 mg by mouth as needed for Migraine. Take one tablet at onset of migraine, may take another tablet 2 hours after initial dose if no relief with first dose. DO NOT EXCEED 100mg in a 24 hour period. [facility] benzonatate 200 mg capsule 2021-05 0-18 00:00: 00 03-07 04:59 :00 No [id number] 200mg Take 1 capsule by mouth 3 (three) times daily as needed for Cough for up to 7 days. [facility] butalbital- acetaminoph en-caff (ESGIC) 50-325-40 mg tablet 1 tablet 2021-05 08:15: 00 02-21 08:09 :00 No 1{tbl} 1 tablet, Oral, ONCE, 1 dose, On Sat02/21/22 at 0315, [facility] butorphanol (STADOL) injection 1 mg 2021-05 08:15: 00 02-21 07:28 :00 No 1mg 1 mg, IV Push, ONCE, 1 dose, On Sat02/21/22 at 0315, Routine [facility] NaCl 0.9% (NS) bolus infusion 1,000 mL 2021-05 07:15: 00 02-21 08:40 :00 No 1000mL at 999 mL/hr, 1,000 mL, IV Infusion, ONCE, 1 dose, On Sat02/21/22 at 0215, [facility] proMETHazin e (PHENERGAN) 12.5 mg in NaCl 0.9% (NS) 50 mL IV piggyback 2021-05 06:30: 00 02-21 06:38 :00 No 12.5mg 12.5 mg, IV Piggyback, ONCE, 1 dose, On Sat02/21/22 at 0130, [place] [facility] dexamethaso ne sod phos PF injection 10 mg 2021-05 06:30: 00 02-21 06:38 :00 No 10mg 10 mg, Slow IV Push, ONCE, 1 dose, On Sat02/21/22 at 0130, 1 mL [facility] ketorolac (TORADOL) injection 15 mg 2021-05 06:30: 00 02-21 06:38 :00 No 15mg 15 mg, Slow IV Push, ONCE, 1 dose, On Sat02/21/22 at 0130, [place] [facility] diphenhydrA MINE (BENADRYL) injection 25 mg 2021-05 06:30: 00 02-21 06:38 :00 No 25mg 25 mg, Slow IV Push, ONCE, 1 dose, On Sat02/21/22 at 0130, STAT [facility] FENTanyl PF (SUBLIMAZE (PF)) injection 50 mcg 2021-05 20:30: 00 02-18 19:44 :00 No 50ug 50 mcg, Slow IV Push, ONCE, 1 dose, On Sat02/18/22 at 1530, Routine [facility] ketorolac (TORADOL) injection 30 mg 2021-05 20:15: 00 02-18 20:09 :00 No 30mg 30 mg, Slow IV Push, ONCE, 1 dose, [facility] 370-500 mL[facility] injection 60 mL 2021-05 19:30: 00 02-18 17:30 :00 No [id number] 60mL 60 mL, Intravenou s, ONCE, 1 dose, On Sat02/18/22 at 1430, Routine [facility] proMETHazin e (PHENERGAN) 12.5 mg in NaCl 0.9% (NS) 50 mL IV piggyback 2021-05 18:15: 00 02-18 18:19 :00 No 12.5mg 12.5 mg, IV Piggyback, ONCE, 1 dose, [facility]02[facility]18/22 [facility] 1315[facility] F[facility] (SUBLIMAZE (PF)) injection 50 mcg 2021-05 18:00: 00 02-18 17:26 :00 No 50ug 50 mcg, Slow IV Push, ONCE, 1 dose, On Sat02/18/22 at 1300, Routine [facility] ondansetron (ZOFRAN (PF)) injection 4 mg 2021-05 17:15: 00 02-18 17:27 :00 No 4mg 4 mg, Slow IV Push, ONCE, 1 dose, On Silas 02/18/22 at 1215, [facility] morpHINE (2 mg/mL) injection 4 mg 01-18 15:15: 00 01-18 14:49 :00 No 4mg 4 mg, Slow IV Push, ONCE, 1 dose, On Kathie 01/18/22 at 1015, [facility] ondansetron (ZOFRAN (PF)) injection 4 mg 01-18 13:30: 00 01-18 13:33 :00 No 4mg 4 mg, Slow IV Push, ONCE, 1 dose, On Kathie 01/18/22 at 0830, [facility] morpHINE (4 mg/mL) injection 4 mg 01-18 13:30: 00 01-18 13:34 :00 No 4mg 4 mg, Slow IV Push, ONCE, 1 dose, On Kathie 01/18/22 at 0830, [facility] morpHINE (4 mg/mL) injection 4 mg 01-18 12:30: 00 01-18 11:39 :00 No 4mg 4 mg, Slow IV Push, ONCE, 1 dose, On Kathie 01/18/22 at 0730, [facility] famotidine (PEPCID (PF)) injection 20 mg 01-18 11:30: 00 01-18 10:52 :00 No 20mg 20 mg, Slow IV Push, ONCE, 1 dose, On Kathie 01/18/22 at 0630, [facility] ondansetron (ZOFRAN (PF)) injection 4 mg 01-18 11:30: 00 01-18 10:52 :00 No 4mg 4 mg, Slow IV Push, ONCE, 1 dose, On Kathie 01/18/22 at 0630, [facility] iodixanoL (VISIPAQUE 270-150 mL) injection 80 mL 01-18 11:21: 00 01-18 11:15 :00 No [id number] 80mL 80 mL, Intravenou s, ONCE, 1 dose, On Kathie 01/18/22 at 0630, Routine [facility] NaCl 0.9% (NS) bolus infusion 1,000 mL 01-18 11:15: 00 01-18 12:59 :00 No 1000mL at 999 mL/hr, 1,000 mL, IV Infusion, ONCE, 1 dose, On Kathie 01/18/22 at 0615, [place] [facility] morpHINE (4 mg/mL) injection 4 mg 01-18 10:45: 00 01-18 10:52 :00 No 4mg 4 mg, Slow IV Push, ONCE, 1 dose, On Kathie 01/18/22 at 0545, STAT [facility] traMADoL 50 mg tablet 01-18 00:00: 00 02-27 00:00 :00 No [id number] 50mg Take 1 tablet by mouth every 6 (six) hours as needed for Pain (scale 7-10). Indication s: acute pain [facility] ondansetron 4 mg disintegrat ing tablet 01-18 00:00: 00 02-27 00:00 :00 No [id number] 4mg Take 1 tablet by mouth every 8 (eight) hours as needed for Nausea and Vomiting (N/V). [facility] ibuprofen 600 mg tablet 01-18 00:00: 00 02-27 00:00 :00 No [id number] 600mg Take 1 tablet by mouth every 6 (six) hours as needed for Pain (scale 4-6). [facility] predniSONE 20 mg tablet 01-16 00:00: 00 01-24 04:59 :00 No [id number] 40mg Take 2 tablets by mouth in the morning for 7 days. [facility] morpHINE (4 mg/mL) injection 4 mg 01-15 16:15: 00 01-15 15:28 :00 No 4mg 4 mg, Slow IV Push, ONCE, 1 dose, On Sat01/15/22 at 1115, [facility] proMETHazin e (PHENERGAN) 12.5 mg in NaCl 0.9% (NS) 50 mL IV piggyback 01-15 15:30: 00 01-15 15:28 :00 No 12.5mg 12.5 mg, IV Piggyback, ONCE, 1 dose, On Sat01/15/22 at 1030, [facility] NaCl 0.9% (NS) bolus infusion 1,000 mL 01-15 15:00: 00 01-15 15:38 :00 No 1000mL at 999 mL/hr, 1,000 mL, IV Infusion, ONCE, 1 dose, On Sat01/15/22 at 1000, [facility] morpHINE (4 mg/mL) injection 4 mg 01-15 15:00: 00 01-15 14:37 :00 No 4mg 4 mg, Slow IV Push, ONCE, 1 dose, On Sat01/15/22 at 1000, [facility] ondansetron (ZOFRAN (PF)) injection 8 mg 01-15 14:15: 00 01-15 14:37 :00 No 8mg 8 mg, Slow IV Push, ONCE, 1 dose, On Sat01/15/22 at 0915, [facility] dexamethaso ne sod phos PF injection 10 mg 01-15 14:15: 00 01-15 14:37 :00 No 10mg 10 mg, Slow IV Push, ONCE, 1 dose, On Sat01/15/22 at 0915, 1 mL [facility] proMETHazin e 25 mg tablet 01-15 00:00: 00 02-27 00:00 :00 No [id number] 25mg Take 1 tablet by mouth every 6 (six) hours as needed for Nausea and Vomiting (N/V). [facility] ondansetron (ZOFRAN-ODT ) disintegrat ing tablet 4 mg 830 01:45: 00 01-09 00:56 :00 No 4mg 4 mg, Oral, ONCE, 1 dose, On Sat01/08/22 at 2045, Routine [facility] HYDROcodone -acetaminop hen (NORCO 5) 5-325 mg tablet 1 tablet 01-09 00:45: 00 01-09 00:37 :00 No 1{tbl} 1 tablet, Oral, ONCE, 1 dose, On Sat01/08/22 at 1945, [place] [facility] diphenhydrA MINE (BENADRYL) injection 25 mg 01-08 23:45: 00 01-08 23:51 :00 No 25mg 25 mg, Slow IV Push, ONCE, 1 dose, On Sat01/08/22 at 1845, STAT [facility] dexamethaso ne sod phos PF injection 10 mg 01-08 23:45: 00 01-08 23:50 :00 No 10mg 10 mg, Slow IV Push, ONCE, 1 dose, On Sat01/08/22 at 1845, 1 mL [facility] ketorolac (TORADOL) injection 30 mg 01-08 23:45: 00 01-08 23:51 :00 No 30mg 30 mg, Slow IV Push, ONCE, 1 dose, On Sat01/08/22 at 1845, [place] [facility] acetaminoph en (TYLENOL ARTHRITIS PAIN) 650 mg CR tablet 01-08 00:00: 00 04-07 00:00 :00 No [id number] 650mg Take 1 tablet by mouth every 8 (eight) hours as needed for Pain. [facility] ondansetron 4 mg disintegrat ing tablet 01-08 00:00: 00 02-27 00:00 :00 No [id number] 4mg Take 1 tablet by mouth every 8 (eight) hours as needed for Nausea and Vomiting (N/V). [facility] ketorolac 10 mg tablet 01-08 00:00: 00 02-27 00:00 :00 No [id number] 10mg Take 1 tablet by mouth every 6 (six) hours as needed for Pain (scale 4-6) or Pain (scale 7-10). [facility] metaxalone (SKELAXIN) 800 mg tablet 01-08 00:00: 00 02-27 00:00 :00 No [id number] 800mg Take 1 tablet by mouth in the morning and 1 tablet at noon and 1 tablet in the evening. [facility] metroNIDAZO LE 500 mg tablet 12-18 00:00: 00 02-27 00:00 :00 No 500mg Take 1 tablet by mouth every 12 (twelve) hours. [facility] trazodone/d ietary supp. no.8 (TRAZAMINE ORAL) 12-12 15:08: 46 12-12 00:00 :00 No Take by mouth. [facility] diphenhydrA MINE 25 mg capsule 12-12 13:03: 04 Yes 25mg Take 25 mg by mouth every 6 (six) hours as needed for Allergies. [facility] carbamazepi ne (TEGRETOL ORAL) 12-12 13:03: 04 Yes Take by mouth. [facility] traZODone 50 mg tablet 12-12 00:00: 00 02-27 00:00 :00 No [id number] 50mg Take 1 tablet by mouth at bedtime. [facility] SERTraline (ZOLOFT) 50 mg tablet 12-12 00:00: 00 02-27 00:00 :00 No [id number] 50mg Take 1 tablet by mouth in the morning. [facility] sulfamethox azole-trime thoprim (BACTRIM DS) 800-160 mg per tablet 12-12 00:00: 00 12-16 04:59 :00 No [id number] 1{tbl} Take 1 tablet by mouth in the morning and 1 tablet in the evening. Do all this for 3 days. [facility] ibuprofen 600 mg tablet 11-24 00:00: 02-27 00:00 :00 No [id number] 600mg Take 1 tablet by mouth every 6 (six) hours as needed for Pain (scale 4-6). [facility] acetaminoph en-codeine 300-30 mg tablet 11-24 00:00: 00 12-12 00:00 :00 No [id number] 1{tbl} Take 1 tablet by mouth every 4 (four) hours as needed for Pain (scale 4-6). Indication s: acute pain [facility] bromphenira mine-pseudo ephedrine-D M (BROMFED DM) 2-30-10 mg/5 mL syrup 11-18 00:00: 00 03-24 00:00 :00 No [id number] 5mL Take 5 mL by mouth 4 (four) times daily as needed for Congestion /Allergies or Cough. [facility] naproxen 500 mg tablet 11-18 00:00: 00 02-27 00:00 :00 No [id number] 500mg Take 1 tablet by mouth every 8 (eight) hours as needed for Pain (scale 4-6). [facility] cyclobenzap rine 10 mg tablet 11-18 00:00: 00 02-27 00:00 :00 No [id number] 10mg Take 1 tablet by mouth at bedtime as needed for Muscle Spasms. [facility] ibuprofen 100 mg/5 mL oral suspension 10-25 00:00: 00 02-27 00:00 :00 No [id number] 605mg Take 30.25 mL by mouth every 6 (six) hours as needed for Pain (scale 4-6) or Temp > 38.5 C. [facility] acetaminoph en 160 mg/5 mL liquid 10-25 00:00: 00 12-12 00:00 :00 No [id number] 608mg Take 19 mL by mouth every 6 (six) hours as needed for Fever. [facility] DULoxetine 60 mg capsule 10-06 00:00: 02-27 00:00 :00 No [facility] traZODone 50 mg tablet 27 00:00: 00 12-12 00:00 :00 No [facility] mometasone 50 mcg/actuati on nasal spray 09-28 00:00: 00 02-27 00:00 :00 No [id number] 1{spray } Use 1 [place] in each nostril 2 (two) times daily. [facility] cetirizine (ZYRTEC) 10 mg tablet 16 00:00: 00 02-27 00:00 :00 No [id number] 10mg Take 1 tablet by mouth daily. [facility] DULoxetine 30 mg capsule 09-18 00:00: 00 02-27 00:00 :00 No [facility] gabapentin 300 mg capsule 09-18 00:00: 00 02-27 00:00 :00 No [facility] ondansetron 4 mg tablet 09-18 00:00: 00 02-27 00:00 :00 No [facility] amLODIPine 5 mg tablet 09-01 00:00: 00 02-27 00:00 :00 No 5mg Take 5 mg by mouth. [facility] buPROPion XL 150 mg 24 hr tablet -20 00:00: 00 02-27 00:00 :00 No 150mg Take 150 mg by mouth. [facility] proMETHazin e 25 mg tablet 4-05 00:00: 00 09-12 00:00 :00 No [id number] 25mg Take 1 tablet by mouth every 6 (six) hours as needed for Nausea and Vomiting (N/V). [facility] traMADoL 50 mg tablet 4-05 00:00: 00 09-12 00:00 :00 No [id number] 50mg Take 1 tablet by mouth every 6 (six) hours as needed (pain). Indication s: acute pain [facility] cyclobenzap rine 10 mg tablet 08-07 00:00: 00 08-22 04:59 :00 No [id number] 10mg Take 1 tablet by mouth 3 (three) times daily for 14 days. [facility] ibuprofen 800 mg tablet 08-07 00:00: 00 08-22 04:59 :00 No [id number] 800mg Take 1 tablet by mouth every 6 (six) hours as needed for Pain (scale 1-3) for up to 14 days. [facility] diclofenac 75 mg EC tablet 08-01 00:00: 00 09-12 00:00 :00 No [facility] orphenadrin e 100 mg SR tablet 08-01 00:00: 00 09-12 00:00 :00 No [facility] divalproex 125 mg EC tablet 07-21 00:00: 00 09-12 00:00 :00 No [id number] 125mg Take 1 tablet by mouth every 12 (twelve) hours. [facility] divalproex Sprinkles 125 mg SPRINKLE capsule 07-21 00:00: 00 09-12 00:00 :00 No [facility] ibuprofen 600 mg tablet 3 00:00: 00 08-01 04:59 :00 No [id number] 600mg Take 1 tablet by mouth every 6 (six) hours as needed for Temp > 38.5 C for up to 14 days. [facility] acetaminoph en-codeine 300-30 mg tablet 130 00:00: 00 09-12 00:00 :00 No TAKE 1 TABLET BY MOUTH EVERY 4 HOURS NEEDED FOR PAIN FOR 2 DAYS [facility] fluticasone propionate 110 mcg/actuati on inhaler 05-31 00:00: 00 09-28 00:00 :00 No [id number] 2{puff} Inhale 2 Puffs every 12 (twelve) hours. [facility] benzonatate (TESSALON PERLES) 100 mg capsule 05-25 00:00: 00 09-25 00:00 :00 No [id number] 100mg Take 1 capsule by mouth every 8 (eight) hours as needed for Cough. [facility] carvediloL 25 mg tablet 2020-05 00:00: 00 02-27 00:00 :00 No 25mg Take 1 tablet by mouth 2 (two) times daily with meals. [facility] losartan 50 mg tablet 2020-05 00:00: 00 02-27 00:00 :00 No 50mg Take 1 tablet by mouth 2 (two) times daily. [facility] proMETHazin e 25 mg tablet 2020-05 00:00: 00 09-12 00:00 :00 No [facility] methocarbam oL (ROBAXIN) 500 mg tablet 2020-05 00:00: 00 05-25 00:00 :00 No [id number] 500mg Take 1 tablet by mouth every 6 (six) hours as needed (MUSCLE SPASM). [facility] vitamin B-12 (VITAMIN B-12) 500 mcg tablet 2020-05 00:00: 00 09-12 00:00 :00 No [id number] 500ug Take 1 tablet by mouth daily. [facility] methylPREDN ISolone 4 mg tablets 2020-05 00:00: 00 05-25 00:00 :00 No [id number] Follow package directions [facility] fluticasone propion-chel meteroL 115-21 mcg/actuati on inhaler 02-09 00:00: 00 05-25 00:00 :00 No [id number] 2{puff} Inhale 2 Puffs 2 (two) times daily. Rinse mouth after each use. [facility] albuterol 2.5 mg /3 mL (0.083 %) nebulizer solution 02-09 00:00: 00 05-25 00:00 :00 No [id number] 2.5mg Inhale 3 mL every 6 (six) hours as needed for Wheezing or Shortness of Breath. [facility] methocarbam oL (ROBAXIN) 500 mg tablet 02-09 00:00: 00 05-02 00:00 :00 No [id number] 500mg Take 1 tablet by mouth every 6 (six) hours as needed (MUSCLE SPASM). [facility] bromphenira mine-pseudo ephedrine-D M (BROMFED DM) 2-30-10 mg/5 mL syrup 01-31 00:00: 00 02-09 00:00 :00 No [id number] 5mL Take 5 mL by mouth 4 (four) times daily as needed for Cough. [facility] methylPREDN ISolone (MEDROL, ANABELA,) 4 mg tablets 01-20 00:00: 00 02-09 00:00 :00 No [id number] Take by mouth SEE-INSTRU CTIONS. follow package directions [facility] albuterol 90 mcg/actuati on inhaler 01-12 00:00: 00 05-25 00:00 :00 No [id number] 2{puff} Inhale 2 Puffs every 4 (four) hours as needed for Wheezing or Shortness of Breath. [facility] benzonatate 100 mg capsule 01-12 00:00: 00 02-19 00:00 :00 No [id number] 100mg Take 1 capsule by mouth 3 (three) times daily as needed for Cough. [facility] losartan 50 mg tablet 12-23 00:00: 00 02-09 00:00 :00 No 50mg Take 1 tablet by mouth 2 (two) times daily. [facility] topiramate 25 mg tablet 11-22 00:00: 00 12-26 00:00 :00 No 25mg Take 1 tablet by mouth 2 (two) times daily. [facility] OXcarbazepi ne 150 mg tablet 11-21 00:00: 02-09 00:00 :00 No [facility] FLUoxetine 40 mg capsule -12 00:00: 00 12-26 00:00 :00 No [facility] traZODone 100 mg tablet 12 00:00: 00 12-26 00:00 :00 No [facility] dicyclomine 20 mg tablet 610 00:00: 00 12-26 00:00 :00 No [id number] 20mg Take 1 tablet by mouth 4 (four) times daily. [facility] proMETHazin e 25 mg tablet 6 00:00: 00 12-26 00:00 :00 No [id number] 25mg Take 1 tablet by mouth every 6 (six) hours as needed for Nausea and Vomiting (N/V). [facility] acetaminoph en-codeine 300-30 mg tablet 05 00:00: 00 12-26 00:00 :00 No TAKE 2 TABLETS BY MOUTH EVERY 6 HOURS NEEDED FOR PAIN [facility] oxybutynin (DITROPAN XL) 10 mg 24 hr tablet 10-09 00:00: 00 12-26 00:00 :00 No [id number] 10mg Take 1 tablet by mouth daily. [facility] ondansetron (ZOFRAN ODT) 4 mg disintegrat ing tablet 10-09 00:00: 00 12-26 00:00 :00 No [id number] 4mg Take 1 tablet by mouth every 8 (eight) hours as needed for Nausea and Vomiting (N/V). [facility] ciprofloxac in HCl 500 mg tablet 30 00:00: 00 11-22 00:00 :00 No [id number] 500mg Take 1 tablet by mouth 2 (two) times daily. [facility] predniSONE 20 mg tablet 25 00:00: 00 11-22 00:00 :00 No [id number] 20mg Take 1 tablet by mouth daily. Days 1-2: 3 pills (60 mg). Days 3-4: 2 pills (40 mg). Days 5-6: 1 pill (20 mg). Days 7-8: 1/2 pill (10 mg). Then stop [facility] mupirocin 2 % ointment 09-29 00:00: 00 12-26 00:00 :00 No [id number] Apply to both nostrils at bedtime [facility] naproxen sodium (ANAPROX DS) 550 mg tablet 09-28 00:00: 00 12-26 00:00 :00 No [id number] 550mg Take 1 tablet by mouth 2 (two) times daily with meals. [facility] losartan 25 mg tablet 09-16 00:00: 00 12-22 00:00 :00 No 25mg Take 1 tablet by mouth 2 (two) times daily. [facility] nadoloL 20 mg tablet 09-16 00:00: 00 12-22 00:00 :00 No [id number] Please take Nadalol 40 mg QAM [facility] LOESTRIN FE (LOESTRIN FE 1/20) 1 mg-20 mcg (21)/75 mg (7) tablet 09-06 00:00: 00 02-09 00:00 :00 No [id number] 1{tbl} Take 1 tablet by mouth daily. [facility] FLUoxetine 20 mg capsule 09-06 00:00: 00 11-22 00:00 :00 No [id number] 20mg Take 1 capsule by mouth daily. [facility] traZODone 50 mg tablet 09-06 00:00: 00 11-22 00:00 :00 No [id number] 50mg Take 1 tablet by mouth at bedtime. [facility] nadoloL 20 mg tablet 08-31 00:00: 00 09-16 00:00 :00 No [id number] Please take Nadalol 40 mg QAM and 20 mg QPM [facility] methocarbam oL (ROBAXIN) 500 mg tablet 4-08 00:00: 00 09-30 00:00 :00 No [id number] 500mg Take 1 tablet by mouth every 6 (six) hours as needed (MUSCLE SPASM). [facility] traMADoL (ULTRAM) 50 mg tablet 4-08 00:00: 00 09-30 00:00 :00 No [id number] 50mg Take 1 tablet by mouth every 6 (six) hours as needed for Pain (scale 7-10). Indication s: acute pain [facility] ibuprofen 800 mg tablet -04 00:00: 00 11-22 00:00 :00 No TAKE 1 TABLET BY MOUTH EVERY 12 HOURS NEEDED FOR PAIN [facility] ondansetron (ZOFRAN ODT) 4 mg disintegrat ing tablet 08-01 00:00: 00 09-30 00:00 :00 No [id number] 4mg Take 1 tablet by mouth every 8 (eight) hours as needed for Nausea and Vomiting (N/V). [facility] ketorolac 10 mg tablet 08-01 00:00: 00 09-30 00:00 :00 No [id number] 10mg Take 1 tablet by mouth every 6 (six) hours as needed for Pain (scale 4-6). [facility] ciprofloxac in HCl 250 mg tablet 08-01 00:00: 00 09-30 00:00 :00 No [id number] 250mg Take 1 tablet by mouth 2 (two) times daily. [facility] lidocaine 5 % (700 mg/patch) patch 07-22 00:00: 00 09-30 00:00 :00 No [id number] 1{patch } Apply 1 Patch to area(s) every 24 (twenty-fo ur) hours as needed for Localized pain. [facility] topiramate 25 mg tablet - 00:00: 00 11-22 00:00 :00 No 25mg Take 1 tablet by mouth 2 (two) times daily. [facility] metoprolol succinate XL 25 mg 24 hr tablet 2019-05 2-21 00:00: 00 06-15 00:00 :00 No [id number] 12.5mg Take 0.5 tablets by mouth 2 (two) times daily for 90 days. [facility] FLUoxetine 20 mg capsule 2019-05 00:00: 09-06 00:00 :00 No 20mg Take 20 mg by mouth daily. [facility] norgestimat e-ethinyl estradiol 0.25-35 mg-mcg per tablet 11-17 00:00: 04-15 00:00 :00 No [id number] 1{tbl} Take 1 tablet by mouth daily. [facility] buPROPion XL (WELLBUTRIN XL) 150 mg 24 hr tablet 08-12 00:00: 01-04 00:00 :00 No [id number] 150mg Take 1 tablet by mouth daily. [facility] acetaminoph en 325 mg tablet 07-22 00:00: 01-04 00:00 :00 No [id number] 650mg Take 2 tablets by mouth every 6 (six) hours as needed for Pain (scale 1-3) or Pain (scale 4-6). [facility] vitamin w/FA tablet 07-22 00:00: 00 01-04 00:00 :00 No [id number] 1{tbl} Take 1 tablet by mouth daily. [facility] docusate calcium 240 mg capsule 07-22 00:00: 00 01-04 00:00 :00 No [id number] 240mg Take 1 capsule by mouth once daily as needed for Constipati on. [facility] ferrous sulfate 325 mg (65 mg iron) tablet 07-22 00:00: 00 01-04 00:00 :00 No [id number] 325mg Take 1 tablet by mouth 2 (two) times daily. [facility] ibuprofen 600 mg tablet 07-22 00:00: 00 01-04 00:00 :00 No [id number] 600mg Take 1 tablet by mouth every 6 (six) hours as needed (Pain). Take with food or milk. [facility] ALBUTEROL 90 mcg/actuati on inhaler 05-26 00:00: 00 05-01 00:00 :00 No [id number] 103 INHALE 2 PUFFS BY MOUTH EVERY 6 HOURS NEEDED FOR WHEEZING FOR SHORTNESS OF BREATH [facility] buPROPion SR (WELLBUTRIN SR) 150 mg SR tablet 05-21 00:00: 00 01-04 00:00 :00 No [id number] 150mg Take 1 tablet by mouth 2 (two) times daily. [facility] busPIRone 10 mg tablet 05-21 00:00: 01-04 00:00 :00 No [id number] 109 10mg Take 1 tablet by mouth 3 (three) times daily. [facility] Immunizations Ordered Immunization Name Filled Immunization Name Date Status Comments Source Influenza Virus Vaccine Quad IM, Preserv and ABX Free 6 MO-64 YRS 2022-02-27 00:00:00 Completed [facility] Influenza Virus Vaccine Quad IM, Preserv and ABX Free 6 MO-64 YRS 2022-02-27 00:00:00 Completed [facility] Influenza Virus Vaccine Quad IM, Preserv and ABX Free 6 MO-64 YRS 2022-02-27 00:00:00 Completed [facility] Influenza Virus Vaccine Quad IM, Preserv and ABX Free 6 MO-64 YRS 2022-02-27 00:00:00 Completed [facility] Influenza Virus Vaccine Quad IM, Preserv and ABX Free 6 MO-64 YRS 2022-02-27 00:00:00 Completed [facility] Influenza Virus Vaccine Quad IM, Preserv and ABX Free 6 MO-64 YRS 2022-02-27 00:00:00 Completed [facility] Influenza Virus Vaccine Quad IM, Preserv and ABX Free 6 MO-64 YRS 2022-02-27 00:00:00 Completed [facility] Influenza Virus Vaccine Quad IM, Preserv and ABX Free 6 MO-64 YRS 2022-02-27 00:00:00 Completed [facility] Influenza Virus Vaccine Quad IM, Preserv and ABX Free 6 MO-64 YRS 2022-02-27 00:00:00 Completed [facility] Influenza Virus Vaccine Quad IM, Preserv and ABX Free 6 MO-64 YRS 2022-02-27 00:00:00 Completed [facility] Influenza Virus Vaccine Quad IM, Preserv and ABX Free 6 MO-64 YRS 2022-02-27 00:00:00 Completed [facility] Influenza Virus Vaccine Quad IM, Preserv and ABX Free 6 MO-64 YRS 2022-02-27 00:00:00 Completed [facility] Influenza Virus Vaccine Quad IM, Preserv and ABX Free 6 MO-64 YRS 2022-02-27 00:00:00 Completed [facility] Influenza Virus Vaccine Quad IM, Preserv and ABX Free 6 MO-64 YRS 2022-02-27 00:00:00 Completed [facility] Influenza Virus Vaccine Quad IM, Preserv and ABX Free 6 MO-64 YRS 2022-02-27 00:00:00 Completed [facility] Influenza Virus Vaccine Quad IM, Preserv and ABX Free 6 MO-64 YRS 2022-02-27 00:00:00 Completed [facility] Influenza Virus Vaccine Quad IM, Preserv and ABX Free 6 MO-64 YRS 2022-02-27 00:00:00 Completed [facility] Influenza Virus Vaccine Quad IM, Preserv and ABX Free 6 MO-64 YRS 2022-02-27 00:00:00 Completed [facility] Influenza Virus Vaccine Quad IM, Preserv and ABX Free 6 MO-64 YRS 2022-02-27 00:00:00 Completed [facility] Influenza Virus Vaccine Quad IM, Preserv and ABX Free 6 MO-64 YRS 2022-02-27 00:00:00 Completed [facility] Influenza Virus Vaccine Quad IM, Preserv and ABX Free 6 MO-64 YRS 2022-02-27 00:00:00 Completed [facility] Influenza Virus Vaccine Quad IM, Preserv and ABX Free 6 MO-64 YRS 2022-02-27 00:00:00 Completed [facility] Influenza Virus Vaccine Quad IM, Preserv and ABX Free 6 MO-64 YRS 2022-02-27 00:00:00 Completed [facility] Influenza Virus Vaccine Quad IM, Preserv and ABX Free 6 MO-64 YRS 2022-02-27 00:00:00 Completed [facility] Influenza Virus Vaccine Quad IM, Preserv and ABX Free 6 MO-64 YRS 2022-02-27 00:00:00 Completed [facility] Influenza Virus Vaccine Quad IM, Preserv and ABX Free 6 MO-64 YRS 2022-02-27 00:00:00 Completed [facility] Influenza Virus Vaccine Quad IM, Preserv and ABX Free 6 MO-64 YRS 2022-02-27 00:00:00 Completed [facility] Influenza Virus Vaccine Quad IM, Preserv and ABX Free 6 MO-64 YRS 2022-02-27 00:00:00 Completed [facility] Influenza Virus Vaccine Quad IM, Preserv and ABX Free 6 MO-64 YRS 2022-02-27 00:00:00 Completed [facility] Influenza Virus Vaccine Quad IM, Preserv and ABX Free 6 MO-64 YRS 2022-02-27 00:00:00 Completed [facility] Influenza Virus Vaccine Quad IM, Preserv and ABX Free 6 MO-64 YRS 2022-02-27 00:00:00 Completed [facility] Influenza Virus Vaccine Quad IM, Preserv and ABX Free 6 MO-64 YRS 2022-02-27 00:00:00 Completed [facility] Influenza Virus Vaccine Quad IM, Preserv and ABX Free 6 MO-64 YRS 2022-02-27 00:00:00 Completed [facility] Influenza Virus Vaccine Quad IM, Preserv and ABX Free 6 MO-64 YRS 2022-02-27 00:00:00 Completed [facility] Influenza Virus Vaccine Quad IM, Preserv and ABX Free 6 MO-64 YRS 2022-02-27 00:00:00 Completed [facility] Influenza Virus Vaccine Quad IM, Preserv and ABX Free 6 MO-64 YRS 2022-02-27 00:00:00 Completed [facility] Influenza Virus Vaccine Quad IM, Preserv and ABX Free 6 MO-64 YRS 2022-02-27 00:00:00 Completed [facility] Influenza Virus Vaccine Quad IM, Preserv and ABX Free 6 MO-64 YRS 2022-02-27 00:00:00 Completed [facility] Influenza Virus Vaccine Quad IM, Preserv and ABX Free 6 MO-64 YRS 2022-02-27 00:00:00 Completed [facility] Influenza Virus Vaccine Quad IM, Preserv and ABX Free 6 MO-64 YRS 2022-02-27 00:00:00 Completed [facility] Influenza Virus Vaccine Quad IM, Preserv and ABX Free 6 MO-64 YRS 2022-02-27 00:00:00 Completed [facility] Influenza Virus Vaccine Quad IM, Preserv and ABX Free 6 MO-64 YRS 2022-02-27 00:00:00 Completed [facility] Influenza Virus Vaccine Quad IM, Preserv and ABX Free 6 MO-64 YRS 2022-02-27 00:00:00 Completed [facility] Influenza Virus Vaccine Quad IM, Preserv and ABX Free 6 MO-64 YRS 2022-02-27 00:00:00 Completed [facility] Influenza Virus Vaccine Quad IM, Preserv and ABX Free 6 MO-64 YRS 2022-02-27 00:00:00 Completed [facility] Influenza Virus Vaccine Quad IM, Preserv and ABX Free 6 MO-64 YRS 2022-02-27 00:00:00 Completed [facility] Influenza Virus Vaccine Quad IM, Preserv and ABX Free 6 MO-64 YRS 2022-02-27 00:00:00 Completed [facility] Influenza Virus Vaccine Quad IM, Preserv and ABX Free 6 MO-64 YRS 2022-02-27 00:00:00 Completed [facility] Influenza Virus Vaccine Quad IM, Preserv and ABX Free 6 MO-64 YRS 2022-02-27 00:00:00 Completed [facility] Influenza Virus Vaccine Quad IM, Preserv and ABX Free 6 MO-64 YRS (FLUCELVAX) 2022-02-27 00:00:00 Completed [facility] Influenza Virus Vaccine Quad IM, Preserv and ABX Free 6 MO-64 YRS (FLUCELVAX) 2022-02-27 00:00:00 Completed [facility] Influenza Virus Vaccine Quad IM, Preserv and ABX Free 6 MO-64 YRS (FLUCELVAX) 2022-02-27 00:00:00 Completed [facility] Influenza Virus Vaccine Quad .5 mL IM 6+ MO 2022-02-21 00:00:00 Completed [facility] Influenza Virus Vaccine Quad .5 mL IM 6+ MO 2022-02-21 00:00:00 Completed [facility] Influenza Virus Vaccine Quad .5 mL IM 6+ MO 2022-02-21 00:00:00 Completed [facility] Influenza Virus Vaccine Quad .5 mL IM 6+ MO 2022-02-21 00:00:00 Completed [facility] Influenza Virus Vaccine Quad .5 mL IM 6+ MO 2022-02-21 00:00:00 Completed [facility] Influenza Virus Vaccine Quad .5 mL IM 6+ MO 2022-02-21 00:00:00 Completed [facility] Influenza Virus Vaccine Quad .5 mL IM 6+ MO 2022-02-21 00:00:00 Completed [facility] Influenza Virus Vaccine Quad .5 mL IM 6+ MO 2022-02-21 00:00:00 Completed [facility] Influenza Virus Vaccine Quad .5 mL IM 6+ MO 2022-02-21 00:00:00 Completed [facility] Influenza Virus Vaccine Quad .5 mL IM 6+ MO 2022-02-21 00:00:00 Completed [facility] Influenza Virus Vaccine Quad .5 mL IM 6+ MO 2022-02-21 00:00:00 Completed [facility] Influenza Virus Vaccine Quad .5 mL IM 6+ MO 2022-02-21 00:00:00 Completed [facility] Influenza Virus Vaccine Quad .5 mL IM 6+ MO 2022-02-21 00:00:00 Completed [facility] Influenza Virus Vaccine Quad .5 mL IM 6+ MO (FLUZONE/FLULAVAL/F LUARIX) 2022-02-21 00:00:00 Completed [facility] Influenza Virus Vaccine Quad .5 mL IM 6+ MO (FLUZONE/FLULAVAL/F LUARIX) 2022-02-21 00:00:00 Completed [facility] Influenza Virus Vaccine Quad .5 mL IM 6+ MO (FLUZONE/FLULAVAL/F LUARIX) 2022-02-21 00:00:00 Completed [facility] Influenza Virus Vaccine 2021-06-11 00:00:00 Completed [facility] Influenza Virus Vaccine 2021-06-11 00:00:00 Completed [facility] Influenza Virus Vaccine 2021-06-11 00:00:00 Completed [facility] Influenza Virus Vaccine 2021-06-11 00:00:00 Completed [facility] Influenza Virus Vaccine 2021-06-11 00:00:00 Completed [facility] Influenza Virus Vaccine 2021-06-11 00:00:00 Completed [facility] Influenza Virus Vaccine 2021-06-11 00:00:00 Completed [facility] Influenza Virus Vaccine 2021-06-11 00:00:00 Completed [facility] Influenza Virus Vaccine 2021-06-11 00:00:00 Completed [facility] Influenza Virus Vaccine 2021-06-11 00:00:00 Completed [facility] Influenza Virus Vaccine 2021-06-11 00:00:00 Completed [facility] Influenza Virus Vaccine 2021-06-11 00:00:00 Completed [facility] Influenza Virus Vaccine 2021-06-11 00:00:00 Completed [facility] Influenza Virus Vaccine 2021-06-11 00:00:00 Completed [facility] Influenza Virus Vaccine 2021-06-11 00:00:00 Completed [facility] Influenza Virus Vaccine 2021-06-11 00:00:00 Completed [facility] Influenza Virus Vaccine 2021-06-11 00:00:00 Completed [facility] Influenza Virus Vaccine 2021-06-11 00:00:00 Completed [facility] Influenza Virus Vaccine 2021-06-11 00:00:00 Completed [facility] Influenza Virus Vaccine 2021-06-11 00:00:00 Completed [facility] Influenza Virus Vaccine 2021-06-11 00:00:00 Completed [facility] Influenza Virus Vaccine 2021-06-11 00:00:00 Completed [facility] Influenza Virus Vaccine 2021-06-11 00:00:00 Completed [facility] Influenza Virus Vaccine 2021-06-11 00:00:00 Completed [facility] Influenza Virus Vaccine 2021-06-11 00:00:00 Completed [facility] Influenza Virus Vaccine 2021-06-11 00:00:00 Completed [facility] Influenza Virus Vaccine 2021-06-11 00:00:00 Completed [facility] Influenza Virus Vaccine 2021-06-11 00:00:00 Completed [facility] Influenza Virus Vaccine 2021-06-11 00:00:00 Completed [facility] Influenza Virus Vaccine 2021-06-11 00:00:00 Completed [facility] Influenza Virus Vaccine 2021-06-11 00:00:00 Completed [facility] Influenza Virus Vaccine 2021-06-11 00:00:00 Completed [facility] Influenza Virus Vaccine 2021-06-11 00:00:00 Completed [facility] Influenza Virus Vaccine 2021-06-11 00:00:00 Completed [facility] Influenza Virus Vaccine 2021-06-11 00:00:00 Completed [facility] Influenza Virus Vaccine 2021-06-11 00:00:00 Completed [facility] Influenza Virus Vaccine 2021-06-11 00:00:00 Completed [facility] Influenza Virus Vaccine 2021-06-11 00:00:00 Completed [facility] Influenza Virus Vaccine 2021-06-11 00:00:00 Completed [facility] Influenza Virus Vaccine 2021-06-11 00:00:00 Completed [facility] Influenza Virus Vaccine 2021-06-11 00:00:00 Completed [facility] Influenza Virus Vaccine 2021-06-11 00:00:00 Completed [facility] Influenza Virus Vaccine 2021-06-11 00:00:00 Completed [facility] Influenza Virus Vaccine 2021-06-11 00:00:00 Completed [facility] Influenza Virus Vaccine 2021-06-11 00:00:00 Completed [facility] Influenza Virus Vaccine 2021-06-11 00:00:00 Completed [facility] Influenza Virus Vaccine 2021-06-11 00:00:00 Completed [facility] Influenza Virus Vaccine 2021-06-11 00:00:00 Completed [facility] Influenza Virus Vaccine Quad .5 mL IM 6+ MO 2021-06-11 00:00:00 Completed [facility] Influenza Virus Vaccine 2021-06-11 00:00:00 Completed [facility] Influenza Virus Vaccine Quad .5 mL IM 6+ MO 2021-06-11 00:00:00 Completed [facility] Influenza Virus Vaccine 2021-06-11 00:00:00 Completed [facility] Influenza Virus Vaccine Quad .5 mL IM 6+ MO 2021-06-11 00:00:00 Completed [facility] Influenza Virus Vaccine 2021-06-11 00:00:00 Completed [facility] Influenza Virus Vaccine Quad .5 mL IM 6+ MO 2021-06-11 00:00:00 Completed [facility] Influenza Virus Vaccine 2021-06-11 00:00:00 Completed [facility] Influenza Virus Vaccine Quad .5 mL IM 6+ MO 2021-06-11 00:00:00 Completed [facility] Influenza Virus Vaccine 2021-06-11 00:00:00 Completed [facility] Influenza Virus Vaccine Quad .5 mL IM 6+ MO 2021-06-11 00:00:00 Completed [facility] Influenza Virus Vaccine 2021-06-11 00:00:00 Completed [facility] Influenza Virus Vaccine Quad .5 mL IM 6+ MO 2021-06-11 00:00:00 Completed [facility] Influenza Virus Vaccine 2021-06-11 00:00:00 Completed [facility] Influenza Virus Vaccine Quad .5 mL IM 6+ MO 2021-06-11 00:00:00 Completed [facility] Influenza Virus Vaccine 2021-06-11 00:00:00 Completed [facility] Influenza Virus Vaccine Quad .5 mL IM 6+ MO 2021-06-11 00:00:00 Completed [facility] Influenza Virus Vaccine 2021-06-11 00:00:00 Completed [facility] Influenza Virus Vaccine Quad .5 mL IM 6+ MO 2021-06-11 00:00:00 Completed [facility] Influenza Virus Vaccine 2021-06-11 00:00:00 Completed [facility] Influenza Virus Vaccine Quad .5 mL IM 6+ MO 2021-06-11 00:00:00 Completed [facility] Influenza Virus Vaccine 2021-06-11 00:00:00 Completed [facility] Influenza Virus Vaccine Quad .5 mL IM 6+ MO 2021-06-11 00:00:00 Completed [facility] Influenza Virus Vaccine 2021-06-11 00:00:00 Completed [facility] Influenza Virus Vaccine Quad .5 mL IM 6+ MO 2021-06-11 00:00:00 Completed [facility] Influenza Virus Vaccine 2021-06-11 00:00:00 Completed [facility] Influenza Virus Vaccine Quad .5 mL IM 6+ MO (FLUZONE/FLULAVAL/F LUARIX) 2021-06-11 00:00:00 Completed [facility] Influenza Virus Vaccine 2021-06-11 00:00:00 Completed [facility] Influenza Virus Vaccine Quad .5 mL IM 6+ MO (FLUZONE/FLULAVAL/F LUARIX) 2021-06-11 00:00:00 Completed [facility] Influenza Virus Vaccine 2021-06-11 00:00:00 Completed [facility] Influenza Virus Vaccine Quad .5 mL IM 6+ MO (FLUZONE/FLULAVAL/F LUARIX) 2021-06-11 00:00:00 Completed [facility] Influenza Virus Vaccine 2020-05-19 00:00:00 Completed [facility] Influenza Virus Vaccine 2020-05-19 00:00:00 Completed [facility] Influenza Virus Vaccine 2020-05-19 00:00:00 Completed [facility] Influenza Virus Vaccine 2020-05-19 00:00:00 Completed [facility] Influenza Virus Vaccine 2020-05-19 00:00:00 Completed [facility] Influenza Virus Vaccine 2020-05-19 00:00:00 Completed [facility] Influenza Virus Vaccine 2020-05-19 00:00:00 Completed [facility] Influenza Virus Vaccine 2020-05-19 00:00:00 Completed [facility] Influenza Virus Vaccine 2020-05-19 00:00:00 Completed [facility] Influenza Virus Vaccine 2020-05-19 00:00:00 Completed [facility] Influenza Virus Vaccine 2020-05-19 00:00:00 Completed [facility] Influenza Virus Vaccine 2020-05-19 00:00:00 Completed [facility] Influenza Virus Vaccine 2020-05-19 00:00:00 Completed [facility] Influenza Virus Vaccine 2020-05-19 00:00:00 Completed [facility] Influenza Virus Vaccine 2020-05-19 00:00:00 Completed [facility] Influenza Virus Vaccine 2020-05-19 00:00:00 Completed [facility] Influenza Virus Vaccine 2020-05-19 00:00:00 Completed [facility] Influenza Virus Vaccine 2020-05-19 00:00:00 Completed [facility] Influenza Virus Vaccine 2020-05-19 00:00:00 Completed [facility] Influenza Virus Vaccine 2020-05-19 00:00:00 Completed [facility] Influenza Virus Vaccine 2020-05-19 00:00:00 Completed [facility] Influenza Virus Vaccine 2020-05-19 00:00:00 Completed [facility] Influenza Virus Vaccine 2020-05-19 00:00:00 Completed [facility] Influenza Virus Vaccine 2020-05-19 00:00:00 Completed [facility] Influenza Virus Vaccine 2020-05-19 00:00:00 Completed [facility] Influenza Virus Vaccine 2020-05-19 00:00:00 Completed [facility] Influenza Virus Vaccine 2020-05-19 00:00:00 Completed [facility] Influenza Virus Vaccine 2020-05-19 00:00:00 Completed [facility] Influenza Virus Vaccine 2020-05-19 00:00:00 Completed [facility] Influenza Virus Vaccine 2020-05-19 00:00:00 Completed [facility] Influenza Virus Vaccine 2020-05-19 00:00:00 Completed [facility] Influenza Virus Vaccine 2020-05-19 00:00:00 Completed [facility] Influenza Virus Vaccine 2020-05-19 00:00:00 Completed [facility] Influenza Virus Vaccine 2020-05-19 00:00:00 Completed [facility] Influenza Virus Vaccine 2020-05-19 00:00:00 Completed [facility] Influenza Virus Vaccine 2020-05-19 00:00:00 Completed [facility] Influenza Virus Vaccine 2020-05-19 00:00:00 Completed [facility] Influenza Virus Vaccine 2020-05-19 00:00:00 Completed [facility] Influenza Virus Vaccine 2020-05-19 00:00:00 Completed [facility] Influenza Virus Vaccine 2020-05-19 00:00:00 Completed [facility] Influenza Virus Vaccine 2020-05-19 00:00:00 Completed [facility] Influenza Virus Vaccine 2020-05-19 00:00:00 Completed [facility] Influenza Virus Vaccine 2020-05-19 00:00:00 Completed [facility] Influenza Virus Vaccine 2020-05-19 00:00:00 Completed [facility] Influenza Virus Vaccine 2020-05-19 00:00:00 Completed [facility] Influenza Virus Vaccine 2020-05-19 00:00:00 Completed [facility] Influenza Virus Vaccine 2020-05-19 00:00:00 Completed [facility] Influenza Virus Vaccine 2020-05-19 00:00:00 Completed [facility] Influenza Virus Vaccine 2020-05-19 00:00:00 Completed [facility] Influenza Virus Vaccine 2020-05-19 00:00:00 Completed [facility] Influenza Virus Vaccine 2020-05-19 00:00:00 Completed [facility] Influenza Virus Vaccine 2020-05-19 00:00:00 Completed [facility] Influenza Virus Vaccine 2020-05-19 00:00:00 Completed [facility] Influenza Virus Vaccine 2020-05-19 00:00:00 Completed [facility] Influenza Virus Vaccine 2020-05-19 00:00:00 Completed [facility] Influenza Virus Vaccine 2020-05-19 00:00:00 Completed [facility] Influenza Virus Vaccine 2020-05-19 00:00:00 Completed [facility] Influenza Virus Vaccine 2020-05-19 00:00:00 Completed [facility] Influenza Virus Vaccine 2020-05-19 00:00:00 Completed [facility] Influenza Virus Vaccine 2020-05-19 00:00:00 Completed [facility] Influenza Virus Vaccine 2020-05-19 00:00:00 Completed [facility] Influenza Virus Vaccine 2020-05-19 00:00:00 Completed [facility] Influenza Virus Vaccine 2020-05-19 00:00:00 Completed [facility] Influenza Virus Vaccine Recomb Quad IM, Preserv and ABX Free 18-64 YRS 2020-05-16 00:00:00 Completed [facility] Influenza Virus Vaccine Recomb Quad IM, Preserv and ABX Free 18-64 YRS 2020-05-16 00:00:00 Completed [facility] Influenza Virus Vaccine Recomb Quad IM, Preserv and ABX Free 18-64 YRS 2020-05-16 00:00:00 Completed [facility] Influenza Virus Vaccine Recomb Quad IM, Preserv and ABX Free 18-64 YRS 2020-05-16 00:00:00 Completed [facility] Influenza Virus Vaccine Recomb Quad IM, Preserv and ABX Free 18-64 YRS 2020-05-16 00:00:00 Completed [facility] Influenza Virus Vaccine Recomb Quad IM, Preserv and ABX Free 18-64 YRS 2020-05-16 00:00:00 Completed [facility] Influenza Virus Vaccine Recomb Quad IM, Preserv and ABX Free 18-64 YRS 2020-05-16 00:00:00 Completed [facility] Influenza Virus Vaccine Recomb Quad IM, Preserv and ABX Free 18-64 YRS 2020-05-16 00:00:00 Completed [facility] Influenza Virus Vaccine Recomb Quad IM, Preserv and ABX Free 18-64 YRS 2020-05-16 00:00:00 Completed [facility] Influenza Virus Vaccine Recomb Quad IM, Preserv and ABX Free 18-64 YRS 2020-05-16 00:00:00 Completed [facility] Influenza Virus Vaccine Recomb Quad IM, Preserv and ABX Free 18-64 YRS 2020-05-16 00:00:00 Completed [facility] Influenza Virus Vaccine Recomb Quad IM, Preserv and ABX Free 18-64 YRS 2020-05-16 00:00:00 Completed [facility] Influenza Virus Vaccine Recomb Quad IM, Preserv and ABX Free 18-64 YRS 2020-05-16 00:00:00 Completed [facility] Influenza Virus Vaccine Recomb Quad IM, Preserv and ABX Free 18-64 YRS 2020-05-16 00:00:00 Completed [facility] Influenza Virus Vaccine Recomb Quad IM, Preserv and ABX Free 18-64 YRS 2020-05-16 00:00:00 Completed [facility] Influenza Virus Vaccine Recomb Quad IM, Preserv and ABX Free 18-64 YRS 2020-05-16 00:00:00 Completed [facility] Influenza Virus Vaccine Recomb Quad IM, Preserv and ABX Free 18-64 YRS 2020-05-16 00:00:00 Completed [facility] Influenza Virus Vaccine Recomb Quad IM, Preserv and ABX Free 18-64 YRS 2020-05-16 00:00:00 Completed [facility] Influenza Virus Vaccine Recomb Quad IM, Preserv and ABX Free 18-64 YRS 2020-05-16 00:00:00 Completed [facility] Influenza Virus Vaccine Recomb Quad IM, Preserv and ABX Free 18-64 YRS 2020-05-16 00:00:00 Completed [facility] Influenza Virus Vaccine Recomb Quad IM, Preserv and ABX Free 18-64 YRS 2020-05-16 00:00:00 Completed [facility] Influenza Virus Vaccine Recomb Quad IM, Preserv and ABX Free 18-64 YRS 2020-05-16 00:00:00 Completed [facility] Influenza Virus Vaccine Recomb Quad IM, Preserv and ABX Free 18-64 YRS 2020-05-16 00:00:00 Completed [facility] Influenza Virus Vaccine Recomb Quad IM, Preserv and ABX Free 18-64 YRS 2020-05-16 00:00:00 Completed [facility] Influenza Virus Vaccine Recomb Quad IM, Preserv and ABX Free 18-64 YRS 2020-05-16 00:00:00 Completed [facility] Influenza Virus Vaccine Recomb Quad IM, Preserv and ABX Free 18-64 YRS 2020-05-16 00:00:00 Completed [facility] Influenza Virus Vaccine Recomb Quad IM, Preserv and ABX Free 18-64 YRS 2020-05-16 00:00:00 Completed [facility] Influenza Virus Vaccine Recomb Quad IM, Preserv and ABX Free 18-64 YRS 2020-05-16 00:00:00 Completed [facility] Influenza Virus Vaccine Recomb Quad IM, Preserv and ABX Free 18-64 YRS 2020-05-16 00:00:00 Completed [facility] Influenza Virus Vaccine Recomb Quad IM, Preserv and ABX Free 18-64 YRS 2020-05-16 00:00:00 Completed [facility] Influenza Virus Vaccine Recomb Quad IM, Preserv and ABX Free 18-64 YRS 2020-05-16 00:00:00 Completed [facility] Influenza Virus Vaccine Recomb Quad IM, Preserv and ABX Free 18-64 YRS 2020-05-16 00:00:00 Completed [facility] Influenza Virus Vaccine Recomb Quad IM, Preserv and ABX Free 18-64 YRS 2020-05-16 00:00:00 Completed [facility] Influenza Virus Vaccine Recomb Quad IM, Preserv and ABX Free 18-64 YRS 2020-05-16 00:00:00 Completed [facility] Influenza Virus Vaccine Recomb Quad IM, Preserv and ABX Free 18-64 YRS 2020-05-16 00:00:00 Completed [facility] Influenza Virus Vaccine Recomb Quad IM, Preserv and ABX Free 18-64 YRS 2020-05-16 00:00:00 Completed [facility] Influenza Virus Vaccine Recomb Quad IM, Preserv and ABX Free 18-64 YRS 2020-05-16 00:00:00 Completed [facility] Influenza Virus Vaccine Recomb Quad IM, Preserv and ABX Free 18-64 YRS 2020-05-16 00:00:00 Completed [facility] Influenza Virus Vaccine Recomb Quad IM, Preserv and ABX Free 18-64 YRS 2020-05-16 00:00:00 Completed [facility] Influenza Virus Vaccine Recomb Quad IM, Preserv and ABX Free 18-64 YRS 2020-05-16 00:00:00 Completed [facility] Influenza Virus Vaccine Recomb Quad IM, Preserv and ABX Free 18-64 YRS 2020-05-16 00:00:00 Completed [facility] Influenza Virus Vaccine Recomb Quad IM, Preserv and ABX Free 18-64 YRS 2020-05-16 00:00:00 Completed [facility] Influenza Virus Vaccine Recomb Quad IM, Preserv and ABX Free 18-64 YRS 2020-05-16 00:00:00 Completed [facility] Influenza Virus Vaccine Recomb Quad IM, Preserv and ABX Free 18-64 YRS 2020-05-16 00:00:00 Completed [facility] Influenza Virus Vaccine Recomb Quad IM, Preserv and ABX Free 18-64 YRS 2020-05-16 00:00:00 Completed [facility] Influenza Virus Vaccine Recomb Quad IM, Preserv and ABX Free 18-64 YRS 2020-05-16 00:00:00 Completed [facility] Influenza Virus Vaccine Recomb Quad IM, Preserv and ABX Free 18-64 YRS 2020-05-16 00:00:00 Completed [facility] Influenza Virus Vaccine Recomb Quad IM, Preserv and ABX Free 18-64 YRS 2020-05-16 00:00:00 Completed [facility] Influenza Virus Vaccine Recomb Quad IM, Preserv and ABX Free 18-64 YRS 2020-05-16 00:00:00 Completed [facility] Influenza Virus Vaccine Recomb Quad IM, Preserv and ABX Free 18-64 YRS 2020-05-16 00:00:00 Completed [facility] Influenza Virus Vaccine Recomb Quad IM, Preserv and ABX Free 18-64 YRS 2020-05-16 00:00:00 Completed [facility] Influenza Virus Vaccine Recomb Quad IM, Preserv and ABX Free 18-64 YRS 2020-05-16 00:00:00 Completed [facility] Influenza Virus Vaccine Recomb Quad IM, Preserv and ABX Free 18-64 YRS 2020-05-16 00:00:00 Completed [facility] Influenza Virus Vaccine Recomb Quad IM, Preserv and ABX Free 18-64 YRS 2020-05-16 00:00:00 Completed [facility] Influenza Virus Vaccine Recomb Quad IM, Preserv and ABX Free 18-64 YRS 2020-05-16 00:00:00 Completed [facility] Influenza Virus Vaccine Recomb Quad IM, Preserv and ABX Free 18-64 YRS 2020-05-16 00:00:00 Completed [facility] Influenza Virus Vaccine Recomb Quad IM, Preserv and ABX Free 18-64 YRS 2020-05-16 00:00:00 Completed [facility] Influenza Virus Vaccine Recomb Quad IM, Preserv and ABX Free 18-64 YRS 2020-05-16 00:00:00 Completed [facility] Influenza Virus Vaccine Recomb Quad IM, Preserv and ABX Free 18-64 YRS 2020-05-16 00:00:00 Completed [facility] Influenza Virus Vaccine Recomb Quad IM, Preserv and ABX Free 18-64 YRS 2020-05-16 00:00:00 Completed [facility] Influenza Virus Vaccine Recomb Quad IM, Preserv and ABX Free 18-64 YRS 2020-05-16 00:00:00 Completed [facility] Influenza Virus Vaccine Recomb Quad IM, Preserv and ABX Free 18-64 YRS 2020-05-16 00:00:00 Completed [facility] Influenza Virus Vaccine Recomb Quad IM, Preserv and ABX Free 18-64 YRS 2020-05-16 00:00:00 Completed [facility] TDAP (ADACEL) VACCINE 2019-05-21 00:00:00 Completed [facility] TDAP (ADACEL) VACCINE 2019-05-21 00:00:00 Completed [facility] TDAP (ADACEL) VACCINE 2019-05-21 00:00:00 Completed [facility] TDAP (ADACEL) VACCINE 2019-05-21 00:00:00 Completed [facility] TDAP (ADACEL) VACCINE 2019-05-21 00:00:00 Completed [facility] TDAP (ADACEL) VACCINE 2019-05-21 00:00:00 Completed [facility] TDAP (ADACEL) VACCINE 2019-05-21 00:00:00 Completed [facility] TDAP (ADACEL) VACCINE 2019-05-21 00:00:00 Completed [facility] TDAP (ADACEL) VACCINE 2019-05-21 00:00:00 Completed [facility] TDAP (ADACEL) VACCINE 2019-05-21 00:00:00 Completed [facility] TDAP (ADACEL) VACCINE 2019-05-21 00:00:00 Completed [facility] TDAP (ADACEL) VACCINE 2019-05-21 00:00:00 Completed [facility] TDAP (ADACEL) VACCINE 2019-05-21 00:00:00 Completed [facility] TDAP (ADACEL) VACCINE 2019-05-21 00:00:00 Completed [facility] TDAP (ADACEL) VACCINE 2019-05-21 00:00:00 Completed [facility] TDAP (ADACEL) VACCINE 2019-05-21 00:00:00 Completed [facility] TDAP (ADACEL) VACCINE 2019-05-21 00:00:00 Completed [facility] TDAP (ADACEL) VACCINE 2019-05-21 00:00:00 Completed [facility] TDAP (ADACEL) VACCINE 2019-05-21 00:00:00 Completed [facility] TDAP (ADACEL) VACCINE 2019-05-21 00:00:00 Completed [facility] TDAP (ADACEL) VACCINE 2019-05-21 00:00:00 Completed [facility] TDAP (ADACEL) VACCINE 2019-05-21 00:00:00 Completed [facility] TDAP (ADACEL) VACCINE 2019-05-21 00:00:00 Completed [facility] TDAP (ADACEL) VACCINE 2019-05-21 00:00:00 Completed [facility] TDAP (ADACEL) VACCINE 2019-05-21 00:00:00 Completed [facility] TDAP (ADACEL) VACCINE 2019-05-21 00:00:00 Completed [facility] TDAP (ADACEL) VACCINE 2019-05-21 00:00:00 Completed [facility] TDAP (ADACEL) VACCINE 2019-05-21 00:00:00 Completed [facility] TDAP (ADACEL) VACCINE 2019-05-21 00:00:00 Completed [facility] TDAP (ADACEL) VACCINE 2019-05-21 00:00:00 Completed [facility] TDAP (ADACEL) VACCINE 2019-05-21 00:00:00 Completed [facility] TDAP (ADACEL) VACCINE 2019-05-21 00:00:00 Completed [facility] TDAP (ADACEL) VACCINE 2019-05-21 00:00:00 Completed [facility] TDAP (ADACEL) VACCINE 2019-05-21 00:00:00 Completed [facility] TDAP (ADACEL) VACCINE 2019-05-21 00:00:00 Completed [facility] TDAP (ADACEL) VACCINE 2019-05-21 00:00:00 Completed [facility] TDAP (ADACEL) VACCINE 2019-05-21 00:00:00 Completed [facility] TDAP (ADACEL) VACCINE 2019-05-21 00:00:00 Completed [facility] TDAP (ADACEL) VACCINE 2019-05-21 00:00:00 Completed [facility] TDAP (ADACEL) VACCINE 2019-05-21 00:00:00 Completed [facility] TDAP (ADACEL) VACCINE 2019-05-21 00:00:00 Completed [facility] TDAP (ADACEL) VACCINE 2019-05-21 00:00:00 Completed [facility] TDAP (ADACEL) VACCINE 2019-05-21 00:00:00 Completed [facility] TDAP (ADACEL) VACCINE 2019-05-21 00:00:00 Completed [facility] TDAP (ADACEL) VACCINE 2019-05-21 00:00:00 Completed [facility] TDAP (ADACEL) VACCINE 2019-05-21 00:00:00 Completed [facility] TDAP (ADACEL) VACCINE 2019-05-21 00:00:00 Completed [facility] TDAP (ADACEL) VACCINE 2019-05-21 00:00:00 Completed [facility] TDAP (ADACEL) VACCINE 2019-05-21 00:00:00 Completed [facility] TDAP (ADACEL) VACCINE 2019-05-21 00:00:00 Completed [facility] TDAP (ADACEL) VACCINE 2019-05-21 00:00:00 Completed [facility] TDAP (ADACEL) VACCINE 2019-05-21 00:00:00 Completed [facility] TDAP (ADACEL) VACCINE 2019-05-21 00:00:00 Completed [facility] TDAP (ADACEL) VACCINE 2019-05-21 00:00:00 Completed [facility] TDAP (ADACEL) VACCINE 2019-05-21 00:00:00 Completed [facility] TDAP (ADACEL) VACCINE 2019-05-21 00:00:00 Completed [facility] TDAP (ADACEL) VACCINE 2019-05-21 00:00:00 Completed [facility] TDAP (ADACEL) VACCINE 2019-05-21 00:00:00 Completed [facility] TDAP (ADACEL) VACCINE 2019-05-21 00:00:00 Completed [facility] TDAP (ADACEL) VACCINE 2019-05-21 00:00:00 Completed [facility] TDAP (ADACEL) VACCINE 2019-05-21 00:00:00 Completed [facility] TDAP (ADACEL) VACCINE 2019-05-21 00:00:00 Completed [facility] TDAP (ADACEL) VACCINE 2019-05-21 00:00:00 Completed [facility] Influenza Virus Vaccine Quad .5 mL IM 6+ MO 2019-02-06 00:00:00 Completed [facility] Influenza Virus Vaccine Quad .5 mL IM 6+ MO 2019-02-06 00:00:00 Completed [facility] Influenza Virus Vaccine Quad .5 mL IM 6+ MO 2019-02-06 00:00:00 Completed [facility] Influenza Virus Vaccine Quad .5 mL IM 6+ MO 2019-02-06 00:00:00 Completed [facility] Influenza Virus Vaccine Quad .5 mL IM 6+ MO 2019-02-06 00:00:00 Completed [facility] Influenza Virus Vaccine Quad .5 mL IM 6+ MO 2019-02-06 00:00:00 Completed [facility] Influenza Virus Vaccine Quad .5 mL IM 6+ MO 2019-02-06 00:00:00 Completed [facility] Influenza Virus Vaccine Quad .5 mL IM 6+ MO 2019-02-06 00:00:00 Completed [facility] Influenza Virus Vaccine Quad .5 mL IM 6+ MO 2019-02-06 00:00:00 Completed [facility] Influenza Virus Vaccine Quad .5 mL IM 6+ MO 2019-02-06 00:00:00 Completed [facility] Influenza Virus Vaccine Quad .5 mL IM 6+ MO 2019-02-06 00:00:00 Completed [facility] Influenza Virus Vaccine Quad .5 mL IM 6+ MO 2019-02-06 00:00:00 Completed [facility] Influenza Virus Vaccine Quad .5 mL IM 6+ MO 2019-02-06 00:00:00 Completed [facility] Influenza Virus Vaccine Quad .5 mL IM 6+ MO 2019-02-06 00:00:00 Completed [facility] Influenza Virus Vaccine Quad .5 mL IM 6+ MO 2019-02-06 00:00:00 Completed [facility] Influenza Virus Vaccine Quad .5 mL IM 6+ MO 2019-02-06 00:00:00 Completed [facility] Influenza Virus Vaccine Quad .5 mL IM 6+ MO 2019-02-06 00:00:00 Completed [facility] Influenza Virus Vaccine Quad .5 mL IM 6+ MO 2019-02-06 00:00:00 Completed [facility] Influenza Virus Vaccine Quad .5 mL IM 6+ MO 2019-02-06 00:00:00 Completed [facility] Influenza Virus Vaccine Quad .5 mL IM 6+ MO 2019-02-06 00:00:00 Completed [facility] Influenza Virus Vaccine Quad .5 mL IM 6+ MO 2019-02-06 00:00:00 Completed [facility] Influenza Virus Vaccine Quad .5 mL IM 6+ MO 2019-02-06 00:00:00 Completed [facility] Influenza Virus Vaccine Quad .5 mL IM 6+ MO 2019-02-06 00:00:00 Completed [facility] Influenza Virus Vaccine Quad .5 mL IM 6+ MO 2019-02-06 00:00:00 Completed [facility] Influenza Virus Vaccine Quad .5 mL IM 6+ MO 2019-02-06 00:00:00 Completed [facility] Influenza Virus Vaccine Quad .5 mL IM 6+ MO 2019-02-06 00:00:00 Completed [facility] Influenza Virus Vaccine Quad .5 mL IM 6+ MO 2019-02-06 00:00:00 Completed [facility] Influenza Virus Vaccine Quad .5 mL IM 6+ MO 2019-02-06 00:00:00 Completed [facility] Influenza Virus Vaccine Quad .5 mL IM 6+ MO 2019-02-06 00:00:00 Completed [facility] Influenza Virus Vaccine Quad .5 mL IM 6+ MO 2019-02-06 00:00:00 Completed [facility] Influenza Virus Vaccine Quad .5 mL IM 6+ MO 2019-02-06 00:00:00 Completed [facility] Influenza Virus Vaccine Quad .5 mL IM 6+ MO 2019-02-06 00:00:00 Completed [facility] Influenza Virus Vaccine Quad .5 mL IM 6+ MO 2019-02-06 00:00:00 Completed [facility] Influenza Virus Vaccine Quad .5 mL IM 6+ MO 2019-02-06 00:00:00 Completed [facility] Influenza Virus Vaccine Quad .5 mL IM 6+ MO 2019-02-06 00:00:00 Completed [facility] Influenza Virus Vaccine Quad .5 mL IM 6+ MO 2019-02-06 00:00:00 Completed [facility] Influenza Virus Vaccine Quad .5 mL IM 6+ MO 2019-02-06 00:00:00 Completed [facility] Influenza Virus Vaccine Quad .5 mL IM 6+ MO 2019-02-06 00:00:00 Completed [facility] Influenza Virus Vaccine Quad .5 mL IM 6+ MO 2019-02-06 00:00:00 Completed [facility] Influenza Virus Vaccine Quad .5 mL IM 6+ MO 2019-02-06 00:00:00 Completed [facility] Influenza Virus Vaccine Quad .5 mL IM 6+ MO 2019-02-06 00:00:00 Completed [facility] Influenza Virus Vaccine Quad .5 mL IM 6+ MO 2019-02-06 00:00:00 Completed [facility] Influenza Virus Vaccine Quad .5 mL IM 6+ MO 2019-02-06 00:00:00 Completed [facility] Influenza Virus Vaccine Quad .5 mL IM 6+ MO 2019-02-06 00:00:00 Completed [facility] Influenza Virus Vaccine Quad .5 mL IM 6+ MO 2019-02-06 00:00:00 Completed [facility] Influenza Virus Vaccine Quad .5 mL IM 6+ MO 2019-02-06 00:00:00 Completed [facility] Influenza Virus Vaccine Quad .5 mL IM 6+ MO 2019-02-06 00:00:00 Completed [facility] Influenza Virus Vaccine Quad .5 mL IM 6+ MO 2019-02-06 00:00:00 Completed [facility] Influenza Virus Vaccine Quad .5 mL IM 6+ MO 2019-02-06 00:00:00 Completed [facility] Influenza Virus Vaccine Quad .5 mL IM 6+ MO 2019-02-06 00:00:00 Completed [facility] Influenza Virus Vaccine Quad .5 mL IM 6+ MO 2019-02-06 00:00:00 Completed [facility] Influenza Virus Vaccine Quad .5 mL IM 6+ MO 2019-02-06 00:00:00 Completed [facility] Influenza Virus Vaccine Quad .5 mL IM 6+ MO 2019-02-06 00:00:00 Completed [facility] Influenza Virus Vaccine Quad .5 mL IM 6+ MO 2019-02-06 00:00:00 Completed [facility] Influenza Virus Vaccine Quad .5 mL IM 6+ MO 2019-02-06 00:00:00 Completed [facility] Influenza Virus Vaccine Quad .5 mL IM 6+ MO 2019-02-06 00:00:00 Completed [facility] Influenza Virus Vaccine Quad .5 mL IM 6+ MO 2019-02-06 00:00:00 Completed [facility] Influenza Virus Vaccine Quad .5 mL IM 6+ MO 2019-02-06 00:00:00 Completed [facility] Influenza Virus Vaccine Quad .5 mL IM 6+ MO 2019-02-06 00:00:00 Completed [facility] Influenza Virus Vaccine Quad .5 mL IM 6+ MO 2019-02-06 00:00:00 Completed [facility] Influenza Virus Vaccine Quad .5 mL IM 6+ MO (FLUZONE/FLULAVAL/F LUARIX) 2019-02-06 00:00:00 Completed [facility] Influenza Virus Vaccine Quad .5 mL IM 6+ MO (FLUZONE/FLULAVAL/F LUARIX) 2019-02-06 00:00:00 Completed [facility] Influenza Virus Vaccine Quad .5 mL IM 6+ MO (FLUZONE/FLULAVAL/F LUARIX) 2019-02-06 00:00:00 Completed [facility] Influenza Virus Vaccine Quad .5 mL IM 6+ MO (FLUZONE/FLULAVAL/F LUARIX) Unknown Completed [facility] TDAP (ADACEL) VACCINE Unknown Completed [facility] Influenza Virus Vaccine Recomb Quad IM, Preserv and ABX Free 18-64 YRS Unknown Completed [facility] Influenza Virus Vaccine Unknown Completed [facility] Influenza Virus Vaccine Unknown Completed [facility] Influenza Virus Vaccine Quad IM, Preserv and ABX Free 6 MO-64 YRS (FLUCELVAX) Unknown Completed [facility] Influenza Virus Vaccine Quad .5 mL IM 6+ MO (FLUZONE/FLULAVAL/F LUARIX) Unknown Completed [facility] Influenza Virus Vaccine Quad .5 mL IM 6+ MO (FLUZONE/FLULAVAL/F LUARIX) Unknown Completed [facility] Influenza Virus Vaccine Quad .5 mL IM 6+ MO (FLUZONE/FLULAVAL/F LUARIX) Unknown Completed [facility] TDAP (ADACEL) VACCINE Unknown Completed [facility] Influenza Virus Vaccine Recomb Quad IM, Preserv and ABX Free 18-64 YRS Unknown Completed [facility] Influenza Virus Vaccine Unknown Completed [facility] Influenza Virus Vaccine Unknown Completed [facility] Influenza Virus Vaccine Quad IM, Preserv and ABX Free 6 MO-64 YRS (FLUCELVAX) Unknown Completed [facility] Influenza Virus Vaccine Quad .5 mL IM 6+ MO (FLUZONE/FLULAVAL/F LUARIX) Unknown Completed [facility] Influenza Virus Vaccine Quad .5 mL IM 6+ MO (FLUZONE/FLULAVAL/F LUARIX) Unknown Completed [facility] Influenza Virus Vaccine Quad .5 mL IM 6+ MO (FLUZONE/FLULAVAL/F LUARIX) Unknown Completed [facility] TDAP (ADACEL) VACCINE Unknown Completed [facility] Influenza Virus Vaccine Recomb Quad IM, Preserv and ABX Free 18-64 YRS Unknown Completed [facility] Influenza Virus Vaccine Unknown Completed [facility] Influenza Virus Vaccine Unknown Completed [facility] Influenza Virus Vaccine Quad .5 mL IM 6+ MO (FLUZONE/FLULAVAL/F LUARIX) Unknown Completed [facility] Influenza Virus Vaccine Quad .5 mL IM 6+ MO (FLUZONE/FLULAVAL/F LUARIX) Unknown Completed [facility] TDAP (ADACEL) VACCINE Unknown Completed [facility] Influenza Virus Vaccine Recomb Quad IM, Preserv and ABX Free 18-64 YRS Unknown Completed [facility] Influenza Virus Vaccine Unknown Completed [facility] Influenza Virus Vaccine Unknown Completed [facility] Influenza Virus Vaccine Quad .5 mL IM 6+ MO (FLUZONE/FLULAVAL/F LUARIX) Unknown Completed [facility] Influenza Virus Vaccine Quad .5 mL IM 6+ MO (FLUZONE/FLULAVAL/F LUARIX) Unknown Completed [facility] TDAP (ADACEL) VACCINE Unknown Completed [facility] Influenza Virus Vaccine Recomb Quad IM, Preserv and ABX Free 18-64 YRS Unknown Completed [facility] Influenza Virus Vaccine Unknown Completed [facility] Influenza Virus Vaccine Unknown Completed [facility] Influenza Virus Vaccine Quad .5 mL IM 6+ MO (FLUZONE/FLULAVAL/F LUARIX) Unknown Completed [facility] Influenza Virus Vaccine Quad .5 mL IM 6+ MO (FLUZONE/FLULAVAL/F LUARIX) Unknown Completed [facility] TDAP (ADACEL) VACCINE Unknown Completed [facility] Influenza Virus Vaccine Recomb Quad IM, Preserv and ABX Free 18-64 YRS Unknown Completed [facility] Influenza Virus Vaccine Unknown Completed [facility] Influenza Virus Vaccine Unknown Completed [facility] Influenza Virus Vaccine Quad .5 mL IM 6+ MO (FLUZONE/FLULAVAL/F LUARIX) Unknown Completed [facility] Influenza Virus Vaccine Quad .5 mL IM 6+ MO (FLUZONE/FLULAVAL/F LUARIX) Unknown Completed [facility] TDAP (ADACEL) VACCINE Unknown Completed [facility] Influenza Virus Vaccine Recomb Quad IM, Preserv and ABX Free 18-64 YRS Unknown Completed [facility] Influenza Virus Vaccine Unknown Completed [facility] Influenza Virus Vaccine Unknown Completed [facility] Influenza Virus Vaccine Quad .5 mL IM 6+ MO (FLUZONE/FLULAVAL/F LUARIX) Unknown Completed [facility] Influenza Virus Vaccine Quad .5 mL IM 6+ MO (FLUZONE/FLULAVAL/F LUARIX) Unknown Completed [facility] TDAP (ADACEL) VACCINE Unknown Completed [facility] Influenza Virus Vaccine Recomb Quad IM, Preserv and ABX Free 18-64 YRS Unknown Completed [facility] Influenza Virus Vaccine Unknown Completed [facility] Influenza Virus Vaccine Unknown Completed [facility] Influenza Virus Vaccine Quad .5 mL IM 6+ MO (FLUZONE/FLULAVAL/F LUARIX) Unknown Completed [facility] Influenza Virus Vaccine Quad .5 mL IM 6+ MO (FLUZONE/FLULAVAL/F LUARIX) Unknown Completed [facility] TDAP (ADACEL) VACCINE Unknown Completed [facility] Influenza Virus Vaccine Recomb Quad IM, Preserv and ABX Free 18-64 YRS Unknown Completed [facility] Influenza Virus Vaccine Unknown Completed [facility] Influenza Virus Vaccine Unknown Completed [facility] Influenza Virus Vaccine Quad .5 mL IM 6+ MO (FLUZONE/FLULAVAL/F LUARIX) Unknown Completed [facility] Influenza Virus Vaccine Quad .5 mL IM 6+ MO (FLUZONE/FLULAVAL/F LUARIX) Unknown Completed [facility] TDAP (ADACEL) VACCINE Unknown Completed [facility] Influenza Virus Vaccine Recomb Quad IM, Preserv and ABX Free 18-64 YRS Unknown Completed [facility] Influenza Virus Vaccine Unknown Completed [facility] Influenza Virus Vaccine Unknown Completed [facility] Influenza Virus Vaccine Quad .5 mL IM 6+ MO (FLUZONE/FLULAVAL/F LUARIX) Unknown Completed [facility] Influenza Virus Vaccine Quad .5 mL IM 6+ MO (FLUZONE/FLULAVAL/F LUARIX) Unknown Completed [facility] TDAP (ADACEL) VACCINE Unknown Completed [facility] Influenza Virus Vaccine Recomb Quad IM, Preserv and ABX Free 18-64 YRS Unknown Completed [facility] Influenza Virus Vaccine Unknown Completed [facility] Influenza Virus Vaccine Unknown Completed [facility] Influenza Virus Vaccine Quad .5 mL IM 6+ MO (FLUZONE/FLULAVAL/F LUARIX) Unknown Completed [facility] Influenza Virus Vaccine Quad .5 mL IM 6+ MO (FLUZONE/FLULAVAL/F LUARIX) Unknown Completed [facility] TDAP (ADACEL) VACCINE Unknown Completed [facility] Influenza Virus Vaccine Recomb Quad IM, Preserv and ABX Free 18-64 YRS Unknown Completed [facility] Influenza Virus Vaccine Unknown Completed [facility] Influenza Virus Vaccine Unknown Completed [facility] Influenza Virus Vaccine Quad .5 mL IM 6+ MO (FLUZONE/FLULAVAL/F LUARIX) Unknown Completed [facility] Influenza Virus Vaccine Quad .5 mL IM 6+ MO (FLUZONE/FLULAVAL/F LUARIX) Unknown Completed [facility] TDAP (ADACEL) VACCINE Unknown Completed [facility] Influenza Virus Vaccine Recomb Quad IM, Preserv and ABX Free 18-64 YRS Unknown Completed [facility] Influenza Virus Vaccine Unknown Completed [facility] Influenza Virus Vaccine Unknown Completed [facility] Influenza Virus Vaccine Quad .5 mL IM 6+ MO (FLUZONE/FLULAVAL/F LUARIX) Unknown Completed [facility] Influenza Virus Vaccine Quad .5 mL IM 6+ MO (FLUZONE/FLULAVAL/F LUARIX) Unknown Completed [facility] TDAP (ADACEL) VACCINE Unknown Completed [facility] Influenza Virus Vaccine Recomb Quad IM, Preserv and ABX Free 18-64 YRS Unknown Completed [facility] Influenza Virus Vaccine Unknown Completed [facility] Influenza Virus Vaccine Unknown Completed [facility] Influenza Virus Vaccine Quad .5 mL IM 6+ MO (FLUZONE/FLULAVAL/F LUARIX) Unknown Completed [facility] Influenza Virus Vaccine Quad .5 mL IM 6+ MO (FLUZONE/FLULAVAL/F LUARIX) Unknown Completed [facility] TDAP (ADACEL) VACCINE Unknown Completed [facility] Influenza Virus Vaccine Recomb Quad IM, Preserv and ABX Free 18-64 YRS Unknown Completed [facility] Influenza Virus Vaccine Unknown Completed [facility] Influenza Virus Vaccine Unknown Completed [facility] Influenza Virus Vaccine Quad .5 mL IM 6+ MO (FLUZONE/FLULAVAL/F LUARIX) Unknown Completed [facility] Influenza Virus Vaccine Quad .5 mL IM 6+ MO (FLUZONE/FLULAVAL/F LUARIX) Unknown Completed [facility] TDAP (ADACEL) VACCINE Unknown Completed [facility] Influenza Virus Vaccine Recomb Quad IM, Preserv and ABX Free 18-64 YRS Unknown Completed [facility] Influenza Virus Vaccine Unknown Completed [facility] Influenza Virus Vaccine Unknown Completed [facility] [facility] Influenza Virus Vaccine Quad .5 mL IM 6+ MO (FLUZONE/FLULAVAL/F LUARIX) Unknown Completed [facility] Influenza Virus Vaccine Quad .5 mL IM 6+ MO (FLUZONE/FLULAVAL/F LUARIX) Unknown Completed [facility] TDAP (ADACEL) VACCINE Unknown Completed [facility] Influenza Virus Vaccine Recomb Quad IM, Preserv and ABX Free 18-64 YRS Unknown Completed [facility] Influenza Virus Vaccine Unknown Completed [facility] Influenza Virus Vaccine Unknown Completed [facility] Influenza Virus Vaccine Quad .5 mL IM 6+ MO (FLUZONE/FLULAVAL/F LUARIX) Unknown Completed [facility] Influenza Virus Vaccine Quad .5 mL IM 6+ MO (FLUZONE/FLULAVAL/F LUARIX) Unknown Completed [facility] TDAP (ADACEL) VACCINE Unknown Completed [facility] Influenza Virus Vaccine Recomb Quad IM, Preserv and ABX Free 18-64 YRS Unknown Completed [facility] Influenza Virus Vaccine Unknown Completed [facility] Influenza Virus Vaccine Unknown Completed [facility] Influenza Virus Vaccine Quad .5 mL IM 6+ MO (FLUZONE/FLULAVAL/F LUARIX) Unknown Completed [facility] Influenza Virus Vaccine Quad .5 mL IM 6+ MO (FLUZONE/FLULAVAL/F LUARIX) Unknown Completed [facility] TDAP (ADACEL) VACCINE Unknown Completed [facility] Influenza Virus Vaccine Recomb Quad IM, Preserv and ABX Free 18-64 YRS Unknown Completed [facility] Influenza Virus Vaccine Unknown Completed [facility] Influenza Virus Vaccine Quad .5 mL IM 6+ MO (FLUZONE/FLULAVAL/F LUARIX) Unknown Completed [facility] TDAP (ADACEL) VACCINE Unknown Completed [facility] Influenza Virus Vaccine Recomb Quad IM, Preserv and ABX Free 18-64 YRS Unknown Completed [facility] Influenza Virus Vaccine Unknown Completed [facility] Influenza Virus Vaccine Quad .5 mL IM 6+ MO (FLUZONE/FLULAVAL/F LUARIX) Unknown Completed [facility] TDAP (ADACEL) VACCINE Unknown Completed [facility] Influenza Virus Vaccine Recomb Quad IM, Preserv and ABX Free 18-64 YRS Unknown Completed [facility] Influenza Virus Vaccine Unknown Completed [facility] Influenza Virus Vaccine Quad .5 mL IM 6+ MO (FLUZONE/FLULAVAL/F LUARIX) Unknown Completed [facility] TDAP (ADACEL) VACCINE Unknown Completed [facility] Influenza Virus Vaccine Recomb Quad IM, Preserv and ABX Free 18-64 YRS Unknown Completed [facility] Influenza Virus Vaccine Unknown Completed [facility] Influenza Virus Vaccine Quad .5 mL IM 6+ MO (FLUZONE/FLULAVAL/F LUARIX) Unknown Completed [facility] TDAP (ADACEL) VACCINE Unknown Completed [facility] Influenza Virus Vaccine Recomb Quad IM, Preserv and ABX Free 18-64 YRS Unknown Completed [facility] Influenza Virus Vaccine Unknown Completed [facility] Influenza Virus Vaccine Quad .5 mL IM 6+ MO (FLUZONE/FLULAVAL/F LUARIX) Unknown Completed [facility] TDAP (ADACEL) VACCINE Unknown Completed [facility] Influenza Virus Vaccine Recomb Quad IM, Preserv and ABX Free 18-64 YRS Unknown Completed [facility] Influenza Virus Vaccine Unknown Completed [facility] Influenza Virus Vaccine Quad .5 mL IM 6+ MO (FLUZONE/FLULAVAL/F LUARIX) Unknown Completed [facility] TDAP (ADACEL) VACCINE Unknown Completed [facility] Influenza Virus Vaccine Recomb Quad IM, Preserv and ABX Free 18-64 YRS Unknown Completed [facility] Influenza Virus Vaccine Unknown Completed [facility] Influenza Virus Vaccine Quad .5 mL IM 6+ MO (FLUZONE/FLULAVAL/F LUARIX) Unknown Completed [facility] TDAP (ADACEL) VACCINE Unknown Completed [facility] Influenza Virus Vaccine Recomb Quad IM, Preserv and ABX Free 18-64 YRS Unknown Completed [facility] Influenza Virus Vaccine Unknown Completed [facility] Influenza Virus Vaccine Quad .5 mL IM 6+ MO (FLUZONE/FLULAVAL/F LUARIX) Unknown Completed [facility] TDAP (ADACEL) VACCINE Unknown Completed [facility] Influenza Virus Vaccine Recomb Quad IM, Preserv and ABX Free 18-64 YRS Unknown Completed [facility] Influenza Virus Vaccine Unknown Completed [facility] Influenza Virus Vaccine Quad .5 mL IM 6+ MO (FLUZONE/FLULAVAL/F LUARIX) Unknown Completed [facility] TDAP (ADACEL) VACCINE Unknown Completed [facility] Influenza Virus Vaccine Recomb Quad IM, Preserv and ABX Free 18-64 YRS Unknown Completed [facility] Influenza Virus Vaccine Unknown Completed [facility] Influenza Virus Vaccine Quad .5 mL IM 6+ MO (FLUZONE/FLULAVAL/F LUARIX) Unknown Completed [facility] TDAP (ADACEL) VACCINE Unknown Completed [facility] Influenza Virus Vaccine Recomb Quad IM, Preserv and ABX Free 18-64 YRS Unknown Completed [facility] Influenza Virus Vaccine Unknown Completed [facility] Influenza Virus Vaccine Quad .5 mL IM 6+ MO (FLUZONE/FLULAVAL/F LUARIX) Unknown Completed [facility] TDAP (ADACEL) VACCINE Unknown Completed [facility] Influenza Virus Vaccine Recomb Quad IM, Preserv and ABX Free 18-64 YRS Unknown Completed [facility] Influenza Virus Vaccine Unknown Completed [facility] Influenza Virus Vaccine Quad .5 mL IM 6+ MO (FLUZONE/FLULAVAL/F LUARIX) Unknown Completed [facility] TDAP (ADACEL) VACCINE Unknown Completed [facility] Influenza Virus Vaccine Recomb Quad IM, Preserv and ABX Free 18-64 YRS Unknown Completed [facility] Influenza Virus Vaccine Unknown Completed [facility] Influenza Virus Vaccine Quad .5 mL IM 6+ MO (FLUZONE/FLULAVAL/F LUARIX) Unknown Completed [facility] TDAP (ADACEL) VACCINE Unknown Completed [facility] Influenza Virus Vaccine Recomb Quad IM, Preserv and ABX Free 18-64 YRS Unknown Completed [facility] Influenza Virus Vaccine Unknown Completed [facility] Influenza Virus Vaccine Quad .5 mL IM 6+ MO (FLUZONE/FLULAVAL/F LUARIX) Unknown Completed [facility] TDAP (ADACEL) VACCINE Unknown Completed [facility] Influenza Virus Vaccine Recomb Quad IM, Preserv and ABX Free 18-64 YRS Unknown Completed [facility] Influenza Virus Vaccine Unknown Completed [facility] Influenza Virus Vaccine Quad .5 mL IM 6+ MO (FLUZONE/FLULAVAL/F LUARIX) Unknown Completed [facility] TDAP (ADACEL) VACCINE Unknown Completed [facility] Influenza Virus Vaccine Recomb Quad IM, Preserv and ABX Free 18-64 YRS Unknown Completed [facility] Influenza Virus Vaccine Unknown Completed [facility] Influenza Virus Vaccine Quad .5 mL IM 6+ MO (FLUZONE/FLULAVAL/F LUARIX) Unknown Completed [facility] TDAP (ADACEL) VACCINE Unknown Completed [facility] Influenza Virus Vaccine Recomb Quad IM, Preserv and ABX Free 18-64 YRS Unknown Completed [facility] Influenza Virus Vaccine Unknown Completed [facility] Influenza Virus Vaccine Quad .5 mL IM 6+ MO (FLUZONE/FLULAVAL/F LUARIX) Unknown Completed [facility] TDAP (ADACEL) VACCINE Unknown Completed [facility] Influenza Virus Vaccine Recomb Quad IM, Preserv and ABX Free 18-64 YRS Unknown Completed [facility] Influenza Virus Vaccine Unknown Completed [facility] Influenza Virus Vaccine Quad .5 mL IM 6+ MO (FLUZONE/FLULAVAL/F LUARIX) Unknown Completed [facility] TDAP (ADACEL) VACCINE Unknown Completed [facility] Influenza Virus Vaccine Recomb Quad IM, Preserv and ABX Free 18-64 YRS Unknown Completed [facility] Influenza Virus Vaccine Unknown Completed [facility] Influenza Virus Vaccine Quad .5 mL IM 6+ MO (FLUZONE/FLULAVAL/F LUARIX) Unknown Completed [facility] TDAP (ADACEL) VACCINE Unknown Completed [facility] Influenza Virus Vaccine Recomb Quad IM, Preserv and ABX Free 18-64 YRS Unknown Completed [facility] Influenza Virus Vaccine Unknown Completed [facility] Influenza Virus Vaccine Quad .5 mL IM 6+ MO (FLUZONE/FLULAVAL/F LUARIX) Unknown Completed [facility] TDAP (ADACEL) VACCINE Unknown Completed [facility] Influenza Virus Vaccine Recomb Quad IM, Preserv and ABX Free 18-64 YRS Unknown Completed [facility] Influenza Virus Vaccine Unknown Completed [facility] Influenza Virus Vaccine Quad .5 mL IM 6+ MO (FLUZONE/FLULAVAL/F LUARIX) Unknown Completed [facility] TDAP (ADACEL) VACCINE Unknown Completed [facility] Influenza Virus Vaccine Recomb Quad IM, Preserv and ABX Free 18-64 YRS Unknown Completed [facility] Influenza Virus Vaccine Unknown Completed [facility] Influenza Virus Vaccine Quad .5 mL IM 6+ MO (FLUZONE/FLULAVAL/F LUARIX) Unknown Completed [facility] TDAP (ADACEL) VACCINE Unknown Completed [facility] Influenza Virus Vaccine Recomb Quad IM, Preserv and ABX Free 18-64 YRS Unknown Completed [facility] Influenza Virus Vaccine Unknown Completed [facility] Influenza Virus Vaccine Quad .5 mL IM 6+ MO (FLUZONE/FLULAVAL/F LUARIX) Unknown Completed [facility] TDAP (ADACEL) VACCINE Unknown Completed [facility] Influenza Virus Vaccine Recomb Quad IM, Preserv and ABX Free 18-64 YRS Unknown Completed [facility] Influenza Virus Vaccine Unknown Completed [facility] Influenza Virus Vaccine Quad .5 mL IM 6+ MO (FLUZONE/FLULAVAL/F LUARIX) Unknown Completed [facility] TDAP (ADACEL) VACCINE Unknown Completed [facility] Influenza Virus Vaccine Recomb Quad IM, Preserv and ABX Free 18-64 YRS Unknown Completed [facility] Influenza Virus Vaccine Unknown Completed [facility] Influenza Virus Vaccine Quad .5 mL IM 6+ MO (FLUZONE/FLULAVAL/F LUARIX) Unknown Completed [facility] TDAP (ADACEL) VACCINE Unknown Completed [facility] Influenza Virus Vaccine Recomb Quad IM, Preserv and ABX Free 18-64 YRS Unknown Completed [facility] Influenza Virus Vaccine Unknown Completed [facility] Influenza Virus Vaccine Quad .5 mL IM 6+ MO (FLUZONE/FLULAVAL/F LUARIX) Unknown Completed [facility] TDAP (ADACEL) VACCINE Unknown Completed [facility] Influenza Virus Vaccine Recomb Quad IM, Preserv and ABX Free 18-64 YRS Unknown Completed [facility] Influenza Virus Vaccine Unknown Completed [facility] Influenza Virus Vaccine Quad .5 mL IM 6+ MO (FLUZONE/FLULAVAL/F LUARIX) Unknown Completed [facility] TDAP (ADACEL) VACCINE Unknown Completed [facility] Influenza Virus Vaccine Recomb Quad IM, Preserv and ABX Free 18-64 YRS Unknown Completed [facility] Influenza Virus Vaccine Unknown Completed [facility] Influenza Virus Vaccine Quad .5 mL IM 6+ MO (FLUZONE/FLULAVAL/F LUARIX) Unknown Completed [facility] TDAP (ADACEL) VACCINE Unknown Completed [facility] Influenza Virus Vaccine Recomb Quad IM, Preserv and ABX Free 18-64 YRS Unknown Completed [facility] Influenza Virus Vaccine Unknown Completed [facility] Influenza Virus Vaccine Quad .5 mL IM 6+ MO (FLUZONE/FLULAVAL/F LUARIX) Unknown Completed [facility] TDAP (ADACEL) VACCINE Unknown Completed [facility] Influenza Virus Vaccine Recomb Quad IM, Preserv and ABX Free 18-64 YRS Unknown Completed [facility] Influenza Virus Vaccine Unknown Completed [facility] Influenza Virus Vaccine Quad .5 mL IM 6+ MO (FLUZONE/FLULAVAL/F LUARIX) Unknown Completed [facility] TDAP (ADACEL) VACCINE Unknown Completed [facility] Influenza Virus Vaccine Recomb Quad IM, Preserv and ABX Free 18-64 YRS Unknown Completed [facility] Influenza Virus Vaccine Unknown Completed [facility] Influenza Virus Vaccine Quad .5 mL IM 6+ MO (FLUZONE/FLULAVAL/F LUARIX) Unknown Completed [facility] TDAP (ADACEL) VACCINE Unknown Completed [facility] Influenza Virus Vaccine Recomb Quad IM, Preserv and ABX Free 18-64 YRS Unknown Completed [facility] Influenza Virus Vaccine Unknown Completed [facility] Influenza Virus Vaccine Quad .5 mL IM 6+ MO (FLUZONE/FLULAVAL/F LUARIX) Unknown Completed [facility] TDAP (ADACEL) VACCINE Unknown Completed [facility] Influenza Virus Vaccine Recomb Quad IM, Preserv and ABX Free 18-64 YRS Unknown Completed [facility] Influenza Virus Vaccine Unknown Completed [facility] Influenza Virus Vaccine Quad .5 mL IM 6+ MO (FLUZONE/FLULAVAL/F LUARIX) Unknown Completed [facility] TDAP (ADACEL) VACCINE Unknown Completed [facility] Influenza Virus Vaccine Recomb Quad IM, Preserv and ABX Free 18-64 YRS Unknown Completed [facility] Influenza Virus Vaccine Unknown Completed [facility] Influenza Virus Vaccine Quad .5 mL IM 6+ MO (FLUZONE/FLULAVAL/F LUARIX) Unknown Completed [facility] TDAP (ADACEL) VACCINE Unknown Completed [facility] Influenza Virus Vaccine Recomb Quad IM, Preserv and ABX Free 18-64 YRS Unknown Completed [facility] Influenza Virus Vaccine Unknown Completed [facility] Influenza Virus Vaccine Quad .5 mL IM 6+ MO (FLUZONE/FLULAVAL/F LUARIX) Unknown Completed [facility] TDAP (ADACEL) VACCINE Unknown Completed [facility] Influenza Virus Vaccine Recomb Quad IM, Preserv and ABX Free 18-64 YRS Unknown Completed [facility] Influenza Virus Vaccine Unknown Completed [facility] Influenza Virus Vaccine Quad .5 mL IM 6+ MO (FLUZONE/FLULAVAL/F LUARIX) Unknown Completed [facility] TDAP (ADACEL) VACCINE Unknown Completed [facility] Influenza Virus Vaccine Quad .5 mL IM 6+ MO (FLUZONE/FLULAVAL/F LUARIX) Unknown Completed [facility] TDAP (ADACEL) VACCINE Unknown Completed [facility] Influenza Virus Vaccine Quad .5 mL IM 6+ MO (FLUZONE/FLULAVAL/F LUARIX) Unknown Completed [facility] TDAP (ADACEL) VACCINE Unknown Completed [facility] Influenza Virus Vaccine Quad .5 mL IM 6+ MO (FLUZONE/FLULAVAL/F LUARIX) Unknown Completed [facility] TDAP (ADACEL) VACCINE Unknown Completed [facility] Influenza Virus Vaccine Quad .5 mL IM 6+ MO (FLUZONE/FLULAVAL/F LUARIX) Unknown Completed [facility] TDAP (ADACEL) VACCINE Unknown Completed [facility] Influenza Virus Vaccine Quad .5 mL IM 6+ MO (FLUZONE/FLULAVAL/F LUARIX) Unknown Completed [facility] TDAP (ADACEL) VACCINE Unknown Completed [facility] Influenza Virus Vaccine Quad .5 mL IM 6+ MO (FLUZONE/FLULAVAL/F LUARIX) Unknown Completed [facility] TDAP (ADACEL) VACCINE Unknown Completed [facility] Influenza Virus Vaccine Quad .5 mL IM 6+ MO (FLUZONE/FLULAVAL/F LUARIX) Unknown Completed [facility] TDAP (ADACEL) VACCINE Unknown Completed [facility] Influenza Virus Vaccine Quad .5 mL IM 6+ MO (FLUZONE/FLULAVAL/F LUARIX) Unknown Completed [facility] TDAP (ADACEL) VACCINE Unknown Completed [facility] Influenza Virus Vaccine Quad .5 mL IM 6+ MO (FLUZONE/FLULAVAL/F LUARIX) Unknown Completed [facility] TDAP (ADACEL) VACCINE Unknown Completed [facility] Influenza Virus Vaccine Recomb Quad IM, Preserv and ABX Free 18-64 YRS Unknown Completed [facility] Influenza Virus Vaccine Unknown Completed [facility] Influenza Virus Vaccine Unknown Completed [facility] Influenza Virus Vaccine Quad IM, Preserv and ABX Free 6 MO-64 YRS (FLUCELVAX) Unknown Completed [facility] Influenza Virus Vaccine Quad .5 mL IM 6+ MO (FLUZONE/FLULAVAL/F LUARIX) Unknown Completed [facility] Influenza Virus Vaccine Quad .5 mL IM 6+ MO (FLUZONE/FLULAVAL/F LUARIX) Unknown Completed [facility] Influenza Virus Vaccine Quad .5 mL IM 6+ MO (FLUZONE/FLULAVAL/F LUARIX) Unknown Completed [facility] TDAP (ADACEL) VACCINE Unknown Completed [facility] Influenza Virus Vaccine Recomb Quad IM, Preserv and ABX Free 18-64 YRS Unknown Completed [facility] Influenza Virus Vaccine Unknown Completed [facility] Influenza Virus Vaccine Unknown Completed [facility] Influenza Virus Vaccine Quad IM, Preserv and ABX Free 6 MO-64 YRS (FLUCELVAX) Unknown Completed [facility] Influenza Virus Vaccine Quad .5 mL IM 6+ MO (FLUZONE/FLULAVAL/F LUARIX) Unknown Completed [facility] Influenza Virus Vaccine Quad .5 mL IM 6+ MO (FLUZONE/FLULAVAL/F LUARIX) Unknown Completed [facility] Influenza Virus Vaccine Quad .5 mL IM 6+ MO (FLUZONE/FLULAVAL/F LUARIX) Unknown Completed [facility] TDAP (ADACEL) VACCINE Unknown Completed [facility] Influenza Virus Vaccine Recomb Quad IM, Preserv and ABX Free 18-64 YRS Unknown Completed [facility] Influenza Virus Vaccine Unknown Completed [facility] Influenza Virus Vaccine Unknown Completed [facility] Influenza Virus Vaccine Quad IM, Preserv and ABX Free 6 MO-64 YRS (FLUCELVAX) Unknown Completed [facility] Influenza Virus Vaccine Quad .5 mL IM 6+ MO (FLUZONE/FLULAVAL/F LUARIX) Unknown Completed [facility] Influenza Virus Vaccine Quad .5 mL IM 6+ MO (FLUZONE/FLULAVAL/F LUARIX) Unknown Completed [facility] Vital Signs Vital Name Observation Time Observation Value Comments S ource Systolic blood pressure 2023-05-19 17:24:00 129 mm[Hg] [facility] Diastolic blood pressure 2023-05-19 17:24:00 83 mm[Hg] [facility] Heart rate 2023-05-19 17:24:00 77 /min [facility] Respiratory rate 2023-05-19 17:24:00 15 /min [facility] Oxygen saturation in Arterial blood by Pulse oximetry 2023-05-19 17:24:00 100 /min [facility] Body temperature 2023-05-19 14:50:00 37.28 Irene [facility] Body height 2023-05-19 14:50:00 154.9 cm [facility] Body weight 2023-05-19 14:50:00 58.968 kg [facility] BMI 2023-05-19 14:50:00 24.56 kg/m2 [facility] Systolic blood pressure 2023-01-15 16:56:00 132 mm[Hg] [facility] Diastolic blood pressure 2023-01-15 16:56:00 91 mm[Hg] [facility] Heart rate 2023-01-15 16:56:00 67 /min [facility] Body temperature 2023-01-15 16:56:00 36.78 Irene [facility] Respiratory rate 2023-01-15 16:56:00 20 /min [facility] Oxygen saturation in Arterial blood by Pulse oximetry 2023-01-15 16:56:00 100 /min [facility] Body height 2023-01-12 09:05:00 154.9 cm [facility] Body weight 2023-01-12 09:05:00 58.968 kg [facility] BMI 2023-01-12 09:05:00 24.56 kg/m2 [facility] Systolic blood pressure 2022-11-21 21:40:00 122 mm[Hg] [facility] Diastolic blood pressure 2022-11-21 21:40:00 90 mm[Hg] [facility] Heart rate 2022-11-21 21:40:00 92 /min [facility] Respiratory rate 2022-11-21 21:40:00 16 /min [facility] Oxygen saturation in Arterial blood by Pulse oximetry 2022-11-21 21:40:00 99 /min [facility] Body temperature 2022-11-21 18:07:00 37.28 [facility] Body weight 2022-11-21 18:07:00 68.04 kg [facility] BMI 2022-11-21 18:07:00 28.34 kg/m2 [facility] Systolic blood pressure 2022-09-05 17:22:00 139 mm[Hg] [facility] Diastolic blood pressure 2022-09-05 17:22:00 91 mm[Hg] [facility] Heart rate 2022-09-05 17:22:00 120 /min [facility] Respiratory rate 2022-09-05 17:22:00 18 /min [facility] Oxygen saturation in Arterial blood by Pulse oximetry 2022-09-05 17:22:00 99 /min [facility] Body temperature 2022-09-05 13:43:00 37.11 [facility] Body weight 2022-09-05 13:43:00 68.04 kg [facility] BMI 2022-09-05 13:43:00 28.34 kg/m2 [facility] Systolic blood pressure 2022-08-01 00:49:00 138 mm[Hg] [facility] Diastolic blood pressure 2022-08-01 00:49:00 104 mm[Hg] [facility] Heart rate 2022-08-01 00:49:00 108 /min [facility] Respiratory rate 2022-08-01 00:49:00 18 /min [facility] Oxygen saturation in Arterial blood by Pulse oximetry 2022-08-01 00:49:00 99 /min [facility] Body temperature 2022-07-31 22:52:00 37.11 [facility] Body height 2022-07-31 22:52:00 154.9 cm [facility] 2022-07-31 22:52:00 68.04 kg Univ [facility] BMI 2022-07-31 22:52:00 28.34 kg/m2 Univ [facility] Systolic blood pressure 2022-07-15 15:32:00 130 mm[Hg] [facility] Diastolic blood pressure 2022-07-15 15:32:00 90 mm[Hg] [facility] Heart rate 2022-07-15 15:31:00 81 /min Unive [facility] Body temperature 2022-07-15 15:31:00 36.94 Irene [facility] Respiratory rate 2022-07-15 15:31:00 16 /min [facility] Body weight 2022-07-15 15:31:00 68.493 kg [facility] BMI 2022-07-15 15:31:00 28.53 kg/m2 [facility] Oxygen saturation in Arterial blood by Pulse oximetry 2022-07-15 15:31:00 99 /min [facility] Systolic blood pressure 2022-06-23 15:26:00 111 mm[Hg] [facility] Diastolic blood pressure 2022-06-23 15:26:00 75 mm[Hg] [facility] Heart rate 2022-06-23 15:26:00 108 /min Unive [facility] Body temperature 2022-06-23 15:26:00 36.83 Irene [facility] Respiratory rate 2022-06-23 15:26:00 18 /min [facility] Body height 2022-06-23 15:26:00 154.9 cm [facility] weight 2022-06-23 15:26:00 71.385 kg [facility] BMI 2022-06-23 15:26:00 29.74 kg/m2 Univ [facility] Oxygen saturation in Arterial blood by Pulse oximetry 2022-06-23 15:26:00 99 /min [facility] Systolic blood pressure 2022-05-05 22:05:00 126 mm[Hg] [facility] Diastolic blood pressure 2022-05-05 22:05:00 75 mm[Hg] [facility] Heart rate 2022-05-05 22:05:00 99 /min Un[facility] Respiratory rate 2022-05-05 22:05:00 16 /min [facility] Oxygen saturation in Arterial blood by Pulse oximetry 2022-05-05 22:05:00 99 /min [facility] Body temperature 2022-05-05 18:24:00 37.11 Irene [facility] Body height 2022-05-05 18:24:00 154.9 cm Univ [facility] Body weight 2022-05-05 18:24:00 54.432 kg [facility] BMI 2022-05-05 18:24:00 22.67 kg/m2 Univ [facility] Systolic blood pressure 2022-04-26 14:28:00 135 mm[Hg] [facility] Diastolic blood pressure 2022-04-26 14:28:00 95 mm[Hg] [facility] Heart rate 2022-04-26 14:28:00 93 /min [facility] Body temperature 2022-04-26 14:28:00 36.89 Irene [facility] Respiratory rate 2022-04-26 14:28:00 18 /min [facility] Body height 2022-04-26 14:28:00 154.9 cm Univ [facility] Body weight 2022-04-26 14:28:00 54.432 kg [facility] BMI 2022-04-26 14:28:00 22.67 kg/m2 Univ [facility] Oxygen saturation in Arterial blood by Pulse oximetry 2022-04-26 14:28:00 100 /min [facility] Systolic blood pressure 2022-04-26 00:21:00 151 mm[Hg] [facility] Diastolic blood pressure 2022-04-26 00:21:00 98 mm[Hg] [facility] Heart rate 2022-04-26 00:21:00 98 /min [facility] Body temperature 2022-04-26 00:21:00 36.72 Irene [facility] Respiratory rate 2022-04-26 00:21:00 18 /min [facility] Body height 2022-04-26 00:21:00 154.9 cm [facility] Body weight 2022-04-26 00:21:00 54.432 kg [facility] BMI 2022-04-26 00:21:00 22.67 kg/m2 [facility] Oxygen saturation in Arterial blood by Pulse oximetry 2022-04-26 00:21:00 100 /min [facility] Systolic blood pressure 2022-04-09 14:39:00 122 mm[Hg] [facility] Diastolic blood pressure 2022-04-09 14:39:00 84 mm[Hg] [facility] Heart rate 2022-04-09 14:39:00 96 /min Unive [facility] Body height 2022-04-09 14:39:00 154.9 cm [facility] Body weight 2022-04-09 14:39:00 60.328 kg [facility] BMI 2022-04-09 14:39:00 25.13 kg/m2 [facility] Oxygen saturation in Arterial blood by Pulse oximetry 2022-04-09 14:39:00 98 /min [facility] Systolic blood pressure 2022-04-07 22:43:36 131 mm[Hg] [facility] Diastolic blood pressure 2022-04-07 22:43:36 83 mm[Hg] [facility] Heart rate 2022-04-07 22:43:36 113 /min Unive [facility] Respiratory rate 2022-04-07 22:43:36 18 /min [facility] Oxygen saturation in Arterial blood by Pulse oximetry 2022-04-07 22:43:36 97 /min [facility] Body temperature 2022-04-07 19:41:00 37.17 Irene [facility] Body height 2022-04-07 19:41:00 154.9 cm [facility] Body weight 2022-04-07 19:41:00 60.328 kg [facility] BMI 2022-04-07 19:41:00 25.13 kg/m2 [facility] Systolic blood pressure 2022-03-24 19:00:00 125 mm[Hg] [facility] Diastolic blood pressure 2022-03-24 19:00:00 86 mm[Hg] [facility] Heart rate 2022-03-24 19:00:00 93 /min Unive [facility] Respiratory rate 2022-03-24 19:00:00 17 /min [facility] Oxygen saturation in Arterial blood by Pulse oximetry 2022-03-24 19:00:00 97 /min [facility] Body temperature 2022-03-24 13:33:00 36.78 Irene [facility] Systolic blood pressure 2022-03-15 19:23:00 128 mm[Hg] [facility] Diastolic blood pressure 2022-03-15 19:23:00 89 mm[Hg] [facility] Heart rate 2022-03-15 19:23:00 104 /min Unive [facility] Body weight 2022-03-15 19:23:00 60.328 kg [facility] BMI 2022-03-15 19:23:00 25.13 kg/m2 [facility] Oxygen saturation in Arterial blood by Pulse oximetry 2022-03-15 19:23:00 98 /min [facility] Systolic blood pressure 2022-03-15 15:02:00 115 mm[Hg] [facility] Diastolic blood pressure 2022-03-15 15:02:00 70 mm[Hg] [facility] Heart rate 2022-03-15 15:02:00 85 /min Unive [facility] Respiratory rate 2022-03-15 15:02:00 20 /min [facility] Oxygen saturation in Arterial blood by Pulse oximetry 2022-03-15 15:02:00 99 /min [facility] Body temperature 2022-03-15 13:38:00 36.94 Irene [facility] Body height 2022-03-15 13:38:00 154.9 cm [facility] Body weight 2022-03-15 13:38:00 54.432 kg [facility] BMI 2022-03-15 13:38:00 22.67 kg/m2 [facility] Systolic blood pressure 2022-03-11 16:30:00 124 mm[Hg] [facility] Diastolic blood pressure 2022-03-11 16:30:00 88 mm[Hg] [facility] Heart rate 2022-03-11 16:30:00 93 [facility] Body temperature 2022-03-11 16:30:00 36.67 Irene [facility] Respiratory rate 2022-03-11 16:30:00 14 /min [facility] Oxygen saturation in Arterial blood by Pulse oximetry 2022-03-11 16:30:00 100 /min [facility] Body height 2022-03-11 14:19:00 154.9 cm [facility] Body weight 2022-03-11 14:19:00 58.968 kg [facility] BMI 2022-03-11 14:19:00 24.56 kg/m2 [facility] Systolic blood pressure 2022-02-27 14:14:00 140 mm[Hg] [facility] Diastolic blood pressure 2022-02-27 14:14:00 90 mm[Hg] [facility] Heart rate 2022-02-27 14:14:00 103 /min [facility] Body height 2022-02-27 14:14:00 154.9 cm [facility] Body weight 2022-02-27 14:14:00 59.194 kg [facility] BMI 2022-02-27 14:14:00 24.66 kg/m2 [facility] Oxygen saturation in Arterial blood by Pulse oximetry 2022-02-27 14:14:00 100 /min [facility] Systolic blood pressure 2022-02-27 13:19:00 131 mm[Hg] [facility] Diastolic blood pressure 2022-02-27 13:19:00 86 mm[Hg] [facility] Heart rate 2022-02-27 13:19:00 102 /min Unive [facility] Body temperature 2022-02-27 13:19:00 36.33 Irene [facility] Body height 2022-02-27 13:19:00 154.9 cm [facility] Body weight 2022-02-27 13:19:00 58.968 kg [facility] BMI 2022-02-27 13:19:00 24.56 kg/m2 [facility] Oxygen saturation in Arterial blood by Pulse oximetry 2022-02-27 13:19:00 99 /min [facility] Systolic blood pressure 2022-02-21 08:06:00 135 mm[Hg] [facility] Diastolic blood pressure 2022-02-21 08:06:00 97 mm[Hg] [facility] Heart rate 2022-02-21 08:06:00 98 /min Unive [facility] Respiratory rate 2022-02-21 08:06:00 16 /min [facility] Oxygen saturation in Arterial blood by Pulse oximetry 2022-02-21 08:06:00 97 /min [facility] Body temperature 2022-02-21 06:16:00 36.94 Irene [facility] Body height 2022-02-21 06:16:00 154.9 cm [facility] Body weight 2022-02-21 06:16:00 60.963 kg [facility] BMI 2022-02-21 06:16:00 25.39 kg/m2 [facility] Systolic blood pressure 2022 20:08:00 136 mm[Hg] [facility] Diastolic blood pressure 2022 20:08:00 96 mm[Hg] [facility] Heart rate 2022 20:08:00 100 /min Unive [facility] Respiratory rate 2022 20:08:00 20 /min [facility] Oxygen saturation in Arterial blood by Pulse oximetry 2022 20:08:00 98 /min [facility] Body temperature 2022 16:56:00 37.06 Irene [facility] Body weight 2022 16:56:00 54.432 kg Univ [facility] BMI 2022 16:56:00 22.67 kg/m2 [facility] Systolic blood pressure 2022-02-05 14:31:00 128 mm[Hg] [facility] Diastolic blood pressure 2022-02-05 14:31:00 84 mm[Hg] [facility] Heart rate 2022-02-05 14:31:00 86 /min Unive [facility] Body temperature 2022-02-05 14:31:00 37.89 Irene [facility] Respiratory rate 2022-02-05 14:31:00 18 /min [facility] Body height 2022-02-05 14:31:00 154.9 cm [facility] Body weight 2022-02-05 14:31:00 54.432 kg [facility] BMI 2022-02-05 14:31:00 22.67 kg/m2 [facility] Oxygen saturation in Arterial blood by Pulse oximetry 2022-02-05 14:31:00 98 /min [facility] Systolic blood pressure 2022-01-18 14:50:00 144 mm[Hg] [facility] Diastolic blood pressure 2022-01-18 14:50:00 92 mm[Hg] [facility] Heart rate 2022-01-18 14:50:00 94 /min [facility] Respiratory rate 2022-01-18 14:50:00 20 /min [facility] Oxygen saturation in Arterial blood by Pulse oximetry 2022-01-18 14:50:00 99 /min [facility] Body weight 2022-01-18 10:18:00 54.432 kg [facility] BMI 2022-01-18 10:18:00 22.67 kg/m2 [facility] Body temperature 2022-01-18 10:15:00 36.72 Irene [facility] Systolic blood pressure 2022-01-15 15:48:26 125 mm[Hg] [facility] Diastolic blood pressure 2022-01-15 15:48:26 85 mm[Hg] [facility] Heart rate 2022-01-15 15:48:26 95 /min Unive [facility] Respiratory rate 2022-01-15 15:48:26 18 /min [facility] Oxygen saturation in Arterial blood by Pulse oximetry 2022-01-15 15:48:26 98 /min [facility] Body temperature 2022-01-15 13:32:00 37.11 [facility] Body height 2022-01-15 13:32:00 154.9 cm [facility] Body weight 2022-01-15 13:32:00 54.432 kg [facility] BMI 2022-01-15 13:32:00 22.67 kg/m2 [facility] Systolic blood pressure 2022-01-09 00:37:11 127 mm[Hg] [facility] Diastolic blood pressure 2022-01-09 00:37:11 90 mm[Hg] [facility] Heart rate 2022-01-09 00:37:11 94 /min [facility] Body temperature 2022-01-09 00:37:11 37.11 [facility] Respiratory rate 2022-01-09 00:37:11 16 /min [facility] Oxygen saturation in Arterial blood by Pulse oximetry 2022-01-09 00:37:11 97 /min [facility] Body height 2022-01-08 23:03:00 154.9 cm [facility] Body weight 2022-01-08 23:03:00 58.06 kg [facility] BMI 2022-01-08 23:03:00 24.19 kg/m2 [facility] Systolic blood pressure 2021-12-12 18:00:00 126 mm[Hg] [facility] Diastolic blood pressure 2021-12-12 18:00:00 87 mm[Hg] [facility] Heart rate 2021-12-12 18:00:00 86 /min [facility] Body temperature 2021-12-12 18:00:00 36.89 Irene [facility] Respiratory rate 2021-12-12 18:00:00 18 /min [facility] Body height 2021-12-12 18:00:00 154.9 cm [facility] Body weight 2021-12-12 18:00:00 57.153 kg [facility] BMI 2021-12-12 18:00:00 23.81 kg/m2 [facility] Systolic blood pressure 2023-01-14 16:32:00 138 mm[Hg] [facility] Diastolic blood pressure 2023-01-14 16:32:00 84 mm[Hg] [facility] Heart rate 2023-01-14 16:32:00 67 /min [facility] Body temperature 2023-01-14 16:32:00 36.5 Irene [facility] Respiratory rate 2023-01-14 16:32:00 16 /min [facility] Oxygen saturation in Arterial blood by Pulse oximetry 2023-01-14 16:32:00 99 /min [facility] Body height 2023-01-12 09:05:00 154.9 cm [facility] Body weight 2023-01-12 09:05:00 58.968 kg [facility] BMI 2023-01-12 09:05:00 24.56 kg/m2 [facility] Procedures Procedure Date / Time Performed Performing Clinician Source COMP. METABOLIC PANEL (72004) 2023-05-19 17:22:00 Tod Sellers [facility] CT ABDOMEN PELVIS W CONTRAST 2023-05-19 15:59:54 Tod Sellers [facility] LIPASE 2023-05-19 15:43:00 Tod Sellers Un [facility] CBC WITH DIFF 2023-05-19 15:43:00 [facility] 2023-05-19 15:32:00 Tod Sellres Un [facility] POCT TEST 2023-05-19 15:31:00 Anna Marie Sellers [facility] CONSENT/REFUSAL FOR DIAGNOSIS AND TREATMENT 2023-05-19 14:37:15 Doctor Unassigned, Onward [facility] PHOSPHORUS 2023-01-15 08:15:00 Benita Rockwell Un [facility] MAGNESIUM 2023-01-15 08:15:00 Benita Rockwell [facility] BASIC METABOLIC PANEL (NA, K, CL, CO2, GLUCOSE, BUN, CREATININE, CA) 2023-01-15 08:15:00 Benita Rockwell [facility] CBC WITH DIFF 2023-01-15 08:15:00 Benita Rockwell U [facility] PROTHROMBIN TIME / INR 2023-01-15 08:15:00 Luis Rockwell [facility] MAGNESIUM 2023-01-14 10:14:00 Benita Rockwell [facility] PHOSPHORUS 2023-01-14 10:14:00 Benita Rockwell [facility] BASIC METABOLIC PANEL (NA, K, CL, CO2, GLUCOSE, BUN, CREATININE, CA) 2023-01-14 10:14:00 Benita Rockwell [facility] CBC WITH DIFF 2023-01-14 10:14:00 Benita Rockwell [facility] PHOSPHORUS 2023-01-14 10:14:00 Benita Rockwell [facility] MAGNESIUM 2023-01-14 10:14:00 Benita Rockwell [facility] BASIC METABOLIC PANEL (NA, K, CL, CO2, GLUCOSE, BUN, CREATININE, CA) 2023-01-14 10:14:00 Benita Rockwell [facility] CBC WITH DIFF 2023-01-14 10:14:00 Benita Rockwell U [facility] CBC WITH DIFF 2023-01-13 10:45:00 Rodolfo Riggins [facility] BASIC METABOLIC PANEL (NA, K, CL, CO2, GLUCOSE, BUN, CREATININE, CA) 2023-01-13 10:45:00 Vaishnavi, [facility] MAGNESIUM 2023-01-13 10:45:00 Vaishnavi, [facility] PHOSPHORUS 2023-01-13 10:45:00 Vaishnavi, [facility] HEPATIC FUNCTION PANEL ([id number]) (ALB,T.PRO,BILI T,BU/BC,ALT,AST,ALK PHOS) 2023-01-13 10:45:00 Vaishnavi, [facility] PHOSPHORUS 2023-01-13 10:45:00 Vaishnavi, [facility] MAGNESIUM 2023-01-13 10:45:00 Vaishnavi, [facility] HEPATIC FUNCTION PANEL ([id number]) (ALB,T.PRO,BILI T,BU/BC,ALT,AST,ALK PHOS) 2023-01-13 10:45:00 Vaishnavi, [facility] BASIC METABOLIC PANEL (NA, K, CL, CO2, GLUCOSE, BUN, CREATININE, CA) 2023-01-13 10:45:00 Vaishnavi, [facility] CBC WITH DIFF 2023-01-13 10:45:00 VaishnaviRodolfo dailey [facility] GLUCOSE BODY FLUID 2023-01-12 20:44:00 VaishnaviRodolfo dailey [facility] BODY FLUID MANUAL DIFF 2023-01-12 20:44:00 Clayton Riggins [facility] T.PROTEIN BODY FLUID 2023-01-12 20:44:00 Vaishnavi, [place] [facility] ASPIRATE OR ABSCESS CULTURE(AEROBIC/ANAEROBIC ) 2023-01-12 20:44:00 Vaishnavi, [facility] TOTAL BODY FLUID 2023-01-12 20:44:00 Vaishnavi, [facility] GLUCOSE BODY FLUID 2023-01-12 20:44:00 VaishnaviRodolfo wade [facility] T.PROTEIN BODY FLUID 2023-01-12 20:44:00 Vaishnavi [facility] BODY FLUID DIRECT COUNT 2023-01-12 20:44:00 Vaishnavi K ent [facility] ASPIRATE OR ABSCESS CULTURE(AEROBIC/ANAEROBIC ) 2023-01-12 20:44:00 Rodolfo Riggins [facility] TOTAL BODY FLUID 2023-01-12 20:44:00 Rodolfo Riggins [facility] PROTHROMBIN TIME / INR 2023-01-12 08:13:00 VaishnaviClayton wade [facility] PROTHROMBIN TIME / INR 2023-01-12 08:13:00 VaishnaviClayton wade nt [facility] COMP. METABOLIC PANEL ([id number]) 2023-01-12 03:49:00 Ciera García [facility] COMP. METABOLIC PANEL ([id number]) 2023-01-12 03:49:00 Ciera García [facility] CT ABDOMEN PELVIS W CONTRAST 2023-01-12 03:32:06 Ciera García [facility] CT ABDOMEN PELVIS W CONTRAST 2023-01-12 03:32:06 Ciera García [facility] POCT TEST 2023-01-12 03:02:00 Jessica García [facility] POCT TEST 2023-01-12 03:02:00 Jessica García [facility] URINALYSIS 2023-01-12 02:56:00 Kenneth García [facility] LIPASE 2023-01-12 02:56:00 Kenneth García [facility] TOTAL BETA HCG ASSAY 2023-01-12 02:56:00 Ciera García [facility] CBC WITH DIFF 2023-01-12 02:56:00 Kenneth García Marie [facility] EXTRA TUBE ORANGE 2023-01-12 02:56:00 Aroldo Siddiqui [facility] EXTRA TUBE LAV 2023-01-12 02:56:00 Aroldo Siddiqui [facility] LIPASE 2023-01-12 02:56:00 Kenneth García Marie [facility] TOTAL BETA HCG ASSAY 2023-01-12 02:56:00 Ciera García [facility] CBC WITH DIFF 2023-01-12 02:56:00 Kenneth García Marie [facility] URINALYSIS 2023-01-12 02:56:00 Kenneth García [facility] EXTRA TUBE LAV 2023-01-12 02:56:00 Aroldo Siddiqui [facility] EXTRA TUBE ORANGE 2023-01-12 02:56:00 Aroldo Siddiqui [facility] CONSENT/REFUSAL FOR DIAGNOSIS AND TREATMENT 2023-01-12 01:46:10 Doctor Unassigned, Onward [facility] CONSENT/REFUSAL FOR DIAGNOSIS AND TREATMENT 2023-01-12 01:46:10 Doctor Unassigned, Onward [facility] ASSIGNMENT OF BENEFITS 2022-11-21 19:49:02 Docto r Unassigned, Onward [facility] ASSIGNMENT OF BENEFITS 2022-11-21 19:49:02 Docto r Unassigned, Onward [facility] CONSENT/REFUSAL FOR DIAGNOSIS AND TREATMENT 2022-11-21 18:03:25 Doctor Unassigned, Onward [facility] CONSENT/REFUSAL FOR DIAGNOSIS AND TREATMENT 2022-11-21 18:03:25 Doctor Unassigned, Onward [facility] EMERGENCY SERVICES AGREEMENTS AND AUTHORIZATIONS 2022-11-21 05:01:00 Doctor Unassigned, Onward [facility] CONSENT/REFUSAL FOR DIAGNOSIS AND TREATMENT 2022-09-05 13:42:02 Doctor Unassigned, Onward [facility] LIPASE 2022-07-31 23:13:00 [facility] 2022-07-31 23:13:00 Domenico Newell [facility] COMP. METABOLIC PANEL ([id number]) 2022-07-31 23:13:00 Manju Newell [facility] CBC WITH DIFF 2022-07-31 23:13:00 Manju Newell [facility] CONSENT/REFUSAL FOR DIAGNOSIS AND TREATMENT 2022-07-31 22:49:17 Doctor Unassigned, Onward [facility] XR ANKLE 3+ VW RIGHT 2022-07-15 16:00:00 Hi Kaur [facility] XR FOOT 3+ VW RIGHT 2022-07-15 16:00:00 Jenifer Kaur [facility] XR FOOT 3+ VW RIGHT 2022-07-15 16:00:00 Jenifer Kaur [facility] PATIENT FINANCIAL POLICY 2022-07-15 15:25:53 Doctor Unassigned, Onward [facility] POCT MOLECULAR STREP 2022-06-23 16:06:00 Unknown, At[place] [facility] ASSIGNMENT OF BENEFITS 2022-06-23 15:18:28 Docto r Unassigned, Onward [facility] COMP. METABOLIC PANEL ([id number]) 2022-05-05 19:14:00 Karon Norton [facility] CBC WITH DIFF 2022-05-05 19:14:00 Karon Norton [facility] POCT TEST 2022-05-05 19:00:00 Lou Norton [facility] URINALYSIS 2022-05-05 18:58[facility] CONTRAST 2022-04-26 15:11:00 Zion Bridges [facility] COMP. METABOLIC PANEL ([id number]) 2022-04-26 14:49:00 Zion Bridges [facility] CBC WITH DIFF 2022-04-26 14:49:00 Zion Bridges [facility] URINALYSIS 2022-04-26 14:49:00 Zion Bridges [facility] POCT TEST 2022-04-26 14:45:00 Jonn Bridges [facility] CONSENT/REFUSAL FOR DIAGNOSIS AND TREATMENT 2022-04-26 14:22:29 Doctor Unassigned, Onward [facility] POCT TEST 2022-04-26 01:22:00 Jonn Bridges [facility] ASSIGNMENT OF BENEFITS 2022-04-26 00:54:02 Docto r Unassigned, Onward [facility] URINALYSIS 2022-04-26 00:45:00 Zion Bridges [facility] CONSENT/REFUSAL FOR DIAGNOSIS AND TREATMENT 2022-04-26 00:16:47 Doctor Unassigned, Onward [facility] BASIC METABOLIC PANEL (NA, K, CL, CO2, GLUCOSE, BUN, CREATININE, CA) 2022-04-07 22:35:00 Olamide Garvin [facility] CBC WITH DIFF 2022-04-07 22:35:00 Olamide Garvin [facility] URINALYSIS 2022-04-07 21:36:00 Olamide Garvin [facility] URINE DRUG (IMMUNOASSAY) - COMPREHENSIVE DRUG SCREEN W/O REFLEX 2022-04-07 21:36:00 Olamide Garvin [facility] CONSENT/REFUSAL FOR DIAGNOSIS AND TREATMENT 2022-04-07 19:29:15 Doctor Unassigned, Onward [facility] POCT TEST 2022-03-24 14:07:00 Kellie Duncan [facility] CONSENT/REFUSAL FOR DIAGNOSIS AND TREATMENT 2022-03-24 13:27:20 Doctor Unassigned, Onward [facility] CT ABDOMEN PELVIS WO CONTRAST 2022-03-15 14:09:04 Anna Gould [facility] URINALYSIS 2022-03-15 13:53:00 [facility] 2022-03-15 13:52:00 Kimberly Gould [facility] CONSENT/REFUSAL FOR DIAGNOSIS AND TREATMENT 2022-03-15 13:37:02 Doctor Unassigned, Onward [facility] POCT TEST 2022-03-11 14:59:00 Redd Viveros [facility] FLU VACC ([id number]), 6 MO-64 YRS, .5ML, IM, QUAD (FLUCELVAX) 2022-02-27 13:34:55 Vijay Martinez [facility] NOTICE OF PRIVACY PRACTICES 2022-02-21 06:06:30 Doctor Unassigned, Onward [facility] CONSENT/REFUSAL FOR DIAGNOSIS AND TREATMENT 2022-02-21 06:03:41 Doctor Unassigned, Onward [facility] XR ANKLE <3 VW RIGHT 2022 17:56:42 Buster Hamilton [facility] CT ABDOMEN PELVIS W CONTRAST 2022 17:44:17 Maggie Hamilton [facility] CT TRAUMA CERVICAL SPINE WO CONTRAST 2022 17:43:49 Maggie Hamilton [facility] POCT TEST 2022 17:27:00 Zoie Hamilton ra [facility] COMP. METABOLIC PANEL (63148) 2022 17:17:00 Maggie Hamilton [facility] CBC WITH DIFF 2022 17:17:00 Maggie Hamilton [facility] CONSENT/REFUSAL FOR DIAGNOSIS AND TREATMENT 2022 16:53:13 Doctor Unassigned, Onward [facility] US GALL BLADDER 2022-01-18 12:31:09 Bernardo [facility] US PELVIS COMPLETE WITH TRANSVAGINAL 2022-01-18 12:21:13 Melvin Zhao [facility] CT ABDOMEN PELVIS W CONTRAST 2022-01-18 11:20:50 Melvin Zhao [facility] POCT TEST 2022-01-18 10:57:00 Jayy Kennedy [facility] COVID-19 (ID NOW RAPID TESTING) 2022-01-18 10:57:00 Jayy Kennedy [facility] URINALYSIS 2022-01-18 10:47:00 Jayy Kennedy [facility] LIPASE 2022-01-18 10:29:00 Jayy Kennedy [facility] TEST, SERUM 2022-01-18 10:29:00 Jayy Kennedy [facility] HEPATIC FUNCTION PANEL ([id number]) (ALB,T.PRO,BILI T,BU/BC,ALT,AST,ALK PHOS) 2022-01-18 10:29:00 Jayy Kennedy [facility] BASIC METABOLIC PANEL (NA, K, CL, CO2, GLUCOSE, BUN, CREATININE, CA) 2022-01-18 10:29:00 Jayy Kennedy [facility] CBC WITH DIFF 2022-01-18 10:29:00 Jayy Kennedy [facility] CONSENT/REFUSAL FOR DIAGNOSIS AND TREATMENT 2022-01-18 10:13:31 Doctor Unassigned, Onward [facility] CT HEAD WO CONTRAST 2022-01-15 15:22:29 Maura Samayoa [facility] TEST, SERUM 2022-01-15 14:36:00 Hudson Samayoa [facility] BASIC METABOLIC PANEL (NA, K, CL, CO2, GLUCOSE, BUN, CREATININE, CA) 2022-01-15 14:36:00 Maura Samayoa [facility] CBC WITH DIFF 2022-01-15 14:36:00 Maura Samayoa [facility] CONSENT/REFUSAL FOR DIAGNOSIS AND TREATMENT 2022-01-15 13:28:12 Doctor Unassigned, Onward [facility] XR CERVICAL SPINE 4 VW 2022-01-09 00:29[facility]16 [facility] 4 [facility]W 2022-01-09 00:29:16 Gabriela, And res [facility] XR SPINE THORACIC 3 VW 2022-01-09 00:29:16 Kassandra Ochoa [facility] URINALYSIS 2022-01-08 23:50:00 Humberto Ochoa [facility] CONSENT/REFUSAL FOR DIAGNOSIS AND TREATMENT 2022-01-08 22:51:08 Doctor Unassigned, Onward [facility] GALV ONLY - VAGINAL PATHOGENS BY NUCLEIC ACID TESTING 2021-12-12 18:37:00 Prasanna Vargas [facility] URINE CULTURE 2021-12-12 18:32:00 Prasanna Vargas [facility] POCT TEST 2021-12-12 18:31:00 Prasanna Vargas [facility] POCT URINALYSIS W/O SPECIFIC GRAVITY 2021-12-12 18:31:00 Prasanna Vargas [facility] Encounters Start Date/Time End Date/Time Encounter Type Admission Type Attending [facility] Care Facility Care Department Encounter ID Source 2021-03-14 03:14:31 Emergency [facility] [id number] [facility] 2021-03-13 20:05:20 Emergency [facility] [id number] [facility] 2021-03-13 12:48:28 Emergency [facility] [id number] [facility] 2021-03-13 02:43:51 Emergency [facility] [id number] [facility] 2021-03-13 00:27:09 Emergency [facility] [id number] [facility] 2021-03-12 22:10:36 Emergency [facility] [id number] [facility] 2021-03-12 20:04:05 Emergency [facility] [id number] [facility] 2021-03-12 15:25:05 Emergency [facility] [id number] [facility] 2021-03-12 11:43:36 Emergency [facility] [id number] [facility] 2021-03-12 07:41:37 Emergency [facility] [id number] [facility] 2021-03-12 05:43:47 Emergency [facility] [id number] [facility] 2021-03-12 03:43:41 Emergency [facility] [id number] [facility] 2021-03-12 01:31:27 Emergency [facility] [id number] [facility] 2021-03-12 00:56:44 Emergency X [facility] [id number] [facility] 2021-03-12 00:56:31 Emergency [facility] [id number] [facility] 2021-03-11 17:47:02 Emergency [facility] [id number] [facility] 2021-03-11 16:27:15 Emergency [facility] [id number] [facility] 2021-03-11 12:00:58 Emergency [facility] [id number] [facility] 2021-03-11 10:33:59 Emergency [facility] [id number] Univers [facility] 2021-03-11 01:36:52 Emergency [facility] [id number] [facility] 2021-03-10 23:35:34 Emergency [facility] [id number] [facility] 2021-03-10 19:06:16 Emergency [facility] [id number] [facility] 2021-03-10 12:39:47 Emergency [facility] [id number] [facility] 2021-03-10 06:54:04 Emergency [facility] [id number] [facility] 2021-03-09 13:25:44 Outpatient P [facility] [id number] [facility] 2021-03-09 13:08:01 Outpatient P [facility] [id number] [facility] 2021-03-09 12:37:25 Outpatient P [facility] [id number] [facility] 2021-03-09 11:51:20 Outpatient P [facility] [id number] [facility] 2023-09-12 00:00:00 2023-09-12 00:00:00 Outpatient ROLDAN QUIROZ [facility] [id number] [facility] 2023-08-26 00:00:00 2023-08-26 00:00:00 Transition of Care Marlys Odell 1.2.840.114 350.1.13.10 4.2.7.2.686 [id number] [facility] 2023-08-23 08:31:00 2023-08-24 13:25:00 Outpatient X ROLDAN LIM [facility] [id number] [facility] 2023-08-04 14:56:23 2023-08-04 14:56:23 Outpatient [facility] [id number] Willis Gil 2023-06-27 14:47:45 2023-06-27 14:47:45 Outpatient [facility] [id number] Willis Gil 2023-05-19 09:04:00 2023-05-19 12:20:00 Emergency X TOD SELLERS [facility] ERT [id number] [facility] 2023-05-19 09:04:00 2023-05-19 12:20:00 Emergency Tod Sellers [facility] 1..840.114 350.1.13.10 4.2.7.2.686 [id number] [facility] 2023-04-05 00:00:00 2023-04-05 00:00:00 Patient Secure Msg Prasanna Vargas [facility] PROFESSIO NAL BUILDING 1.2.840.114 350.1.13.10 4.2.7.2.686 [id number] [facility] 2023-02-14 12:59:23 2023-02-14 12:59:23 Outpatient SFA [facility] [id number] Willis Gil 2023-02-06 18:19:02 2023-02-06 18:19:02 Outpatient SFA [facility] [id number] Willis Gil 2023-01-30 00:00:00 2023-01-30 00:00:00 Outpatient BILL_R [facility] [id number] [facility] 2023-01-16 00:00:00 2023-01-16 00:00:00 Transition of Care Marlys Odell 1.2.840.114 350.1.13.10 4.2.7.2.686 [id number] [facility] 2023-01-11 21:06:00 2023-01-15 16:00:00 Inpatient X OLIVER STEELE [facility] DAVID [id number] [facility] 2023-01-11 21:06:00 2023-01-15 16:00:00 Hospital Encounter Aroldo Siddiqui, [facility] 1.2.840.114 350.1.13.10 4.2.7.2.686 [id number] [facility] 2023-01-12 00:00:00 2023-01-12 00:00:00 Travel 1.2.840.1 31871.1.1 3.104.2.7 .3.144756 .8 1.2.840.114 350.1.13.10 4.2.7.3.698 [id number] [facility] 2023-01-11 00:00:00 2023-01-11 00:00:00 Travel 1.2.840.1 55312.1.1 3.104.2.7 .3.372319 .8 1.2.840.114 350.1.13.10 4.2.7.3.698 084.8 [id number] [facility] 2022-12-28 00:00:00 2022-12-28 00:00:00 Outpatient ERICKSON_R [facility] [id number] 2022-12-14 18:37:13 2022-12-14 18:37:13 Outpatient SFA [facility] [id number] Willis Gil 2022-12-13 00:00:00 2022-12-13 00:00:00 Outpatient ERICKSON_R [facility] [id number] 2022-12-12 09:30:00 2022-12-12 09:30:00 Outpatient PRASANNA LOOMIS [facility] [id number] [facility] 2022-11-21 13:08:00 2022-11-21 16:45:00 Emergency MANJU BARRAGAN [facility] ERT [id number] [facility] 2022-11-21 13:08:00 2022-11-21 16:45:00 Emergency Zion Bridges Christopher 1.2.840.1 53851.1.1 3.104.2.7 .3.968862 .8 [id number] [facility] 2022-11-21 00:00:00 2022-11-21 00:00:00 Travel 1.2.840.1 17928.1.1 3.104.2.7 .3.268068 .8 1.2.840.114 350.1.13.10 4.2.7.3.698 [id number] [facility] 2022-11-18 10:08:00 2022-11-18 10:08:00 Outpatient [facility] [id number] Willis Gil 2022-11-15 09:40:00 2022-11-15 09:40:00 Outpatient LIAN LABOY CHRISTINE [facility] [id number] [facility] 2022-11-15 00:00:00 2022-11-15 00:00:00 Orders Only Palak Marrufo 1.2.840.1 [id number] 3.104.2.7 .3.379358 .8 [id number] [facility] 2022-11-09 15:26:18 2022-11-09 15:26:18 Outpatient [facility] [id number] Willis Gil 2022-11-06 13:00:00 2022-11-06 13:00:00 Outpatient VIJAY ARAZU [facility] [id number] [facility] 2022-10-29 00:00:00 2022-10-29 00:00:00 Patient Secure Msg Lian Greene 1.2.840.1 12527.1.1 3.104.2.7 .3.318288 .8 [id number] [facility] 2022-10-29 00:00:00 2022-10-29 00:00:00 Patient Secure Msg Prasanna Vargas 1.2.840.1 86094.1.1 3.104.2.7 .3.239967 .8 [id number] [facility] 2022-10-03 00:00:00 2022-10-03 00:00:00 Letter (Out) Roldan Lim [facility] TO[facility] 1.2.840.114 350.1.13.10 4.2.7.2.686 [id number] [facility] 2022-10-02 10:00:00 2022-10-02 10:00:00 Outpatient R CELINA FINNEY [facility] [id number] [facility] 2022-10-01 09:40:00 2022-10-01 09:40:00 Outpatient R REJI DÍAZ [facility] [id number] [facility] 2022-09-25 00:00:00 2022-09-25 00:00:00 Telephone Rad Serra [facility] 1..840.114 350.1.13.10 4.2.7.2.686 [id number] [facility] 2022-09-21 09:30:00 2022-09-21 09:30:00 Outpatient R KASSANDRA PUGH [facility] [id number] [facility] 2022-09-21 00:00:00 2022-09-21 00:00:00 Letter (Out) [facility] 1..840.114 350.1.13.10 4.2.7.2.686 [id number] [facility] 2022-09-21 00:00:00 2022-09-21 00:00:00 Telephone [facility] 1..840.114 350.1.13.10 4.2.7.2.686 [id number] [facility] 2022-09-21 00:00:00 2022-09-21 00:00:00 Telephone [facility] 1..840.114 350.1.13.10 4.2.7.2.686 [id number] [facility] 2022-09-14 09:30:00 2022-09-14 09:30:00 [facility] [id number] [facility] 2022-09-12 00:00:00 2022-09-12 00:00:00 [facility] 1.840.114 350.1.13.10 4.2.7.2.686 [id number] [facility] 2022-09-07 11:30:00 2022-09-07 11:30:00 [facility] [id number] [facility] 2022-09-05 08:44:00 2022-09-05 13:15:00 Emergency X KENNEDY WHITLEY [facility] E[facility] [id number] [facility] 2022-09-05 08:44:00 2022-09-05 13:15:00 Emergency LisetTammieise [facility] 1.840.114 350.1.13.10 4.2.7.2.686 [id number] [facility] 2022-09-04 00:00:00 2022-09-04 00:00:00 Telephone [facility] 1..840.114 350.1.13.10 4.2.7.2.686 [id number] [facility] 2022-09-04 00:00:00 2022-09-04 00:00:00 Patient Secure Rad Wells [facility] PROFESSIO NAL BUILD[facility] 1.2.84.114 350.1.13.10 4.2.7.2.686 [id number] [facility] 2022-08-29 09:00:00 2022-08-29 09:00:00 Outpatient R CELINA FINNEY [facility] [id number] [facility] 2022-08-14 00:00:00 2022-08-14 00:00:00 Patient Secure Msg Doctor Unassigned, Onward [facility] 1.84114 350.1.13.10 4.2.7.2.686 [id number] [facility] 2022-07-31 17:56:00 2022-07-31 20:30:00 Emergency [facility] [id number] [facility] 2022-07-31 17:56:00 2022-07-31 20:30:00 Emergency [place] 1.84.114 350.1.13.10 4.2.7.2.686 [id number] [facility] 2022-07-15 09:46:45 2022-07-15 23:59:00 Outpatient R NATASHAMARILYN ESPARZACARI [facility] [id number] [facility] 2022-07-15 09:46:45 2022-07-15 23:59:00 Hospital En[facility] 1.84.114 350.1.13.10 4.2.7.2.686 [id number] [facility] 2022-07-15 09:46:45 2022-07-15 23:59:00 Hospital Encounter [facility] 1.84.114 350.1.13.10 4.2.7.2.686 [id number] [facility] 2022-07-15 09:20:00 2022-07-15 10:29:17 Urgent Care Cari Kaur Unknown, Attending [facility] 1.2.840.114 350.1.13.10 4.2.7.2.686 [id number] [facility] 2022-07-15 00:00:00 2022-07-15 00:00:00 Orders Only Doctor Unassigned, Onward [facility] 1..840.114 350.1.13.10 4.2.7.2.686 [id number] [facility] 2022-06-23 09:20:00 2022-06-23 10:27:39 Outpatient R PAUL SAMAYOA [facility] [id number] [facility] 2022-06-23 09:20:00 2022-06-23 10:27:39 Urgent Care Paul Samayoa Unknown, Attending [facility] BU[facility] 1..840.114 350.1.13.10 4.2.7.2.686 [id number] [facility] 2022-06-23 00:00:00 2022-06-23 00:00:00 Orders Only Doctor Unassigned, Onward [facility] 1.2840.114 350.1.13.10 4.2.7.2.686 [id number] [facility] 2022-06-15 09:40:00 2022-06-15 09:40:00 Outpatient LIAN LABOY [facility] [id number] [facility] 2022-05-29 08:00:00 2022-05-29 08:00:00 Outpatient KASSANDRA MCKINLEY [facility] [id number] [facility] 2022-05-15 09:20:00 2022-05-15 09:20:00 Outpatient R BENNETT MILLER [facility] [id number] [facility] 2022-05-11 09:30:00 2022-05-11 09:30:00 Outpatient R KASSANDRA PUGH [facility] [id number] [facility] 2022-05-05 12:26:00 2022-05-05 16:11:00 Emergency X KARON NORTON [facility] E[facility] [id number] [facility] 2022-05-05 12:26:00 2022-05-05 16:11:00 Emergency Karon Norton [facility] 1.2.840.114 350.1.13.10 4.2.7.2.686 [id number] [facility] 2022-05-01 00:00:00 2022-05-01 00:00:00 Outpatient R VARGASPRASANNA [facility] [id number] [facility] 2022-04-26 08:30:00 2022-04-26 09:59:00 Emergency X ZION BRIDGES [facility] [id number] [facility] 2022-04-26 08:30:00 2022-04-26 09:59:00 Emergency Zion Bridges [facility] 1.2.840.114 350.1.13.10 4.2.7.2.686 [id number] [facility] 2022-04-25 18:23:00 2022-04-25 21:55:00 Emergency X KENNEDY WHITLEY [facility] E[facility] [id number] [facility] 2022-04-25 18:23:00 2022-04-25 21:55:00 Emergency Kennedy Whitley [facility] 1.2.840.114 350.1.13.10 4.2.7.2.686 [id number] [facility] 2022-04-19 10:00:00 2022-04-19 10:00:00 Outpatient R ISIDRONiteshLIAN [facility] [id number] [facility] 2022-04-12 00:00:00 2022-04-12 00:00:00 [facility] 1.2.840.114 350.1.13.10 4.2.7.2.686 [id number] [facility] 2022-04-11 00:00:00 2022-04-11 00:00:00 Telephone PattiDarrion salmon [facility] TOÑO?[facility] OFF[facility] BUILD[facility] 1.2.840.114 350.1.13.10 4.2.7.2.686 [id number] [facility] 2022-04-10 00:00:00 2022-04-10 00:00:00 [facility] 1.2.840.114 350.1.13.10 4.2.7.2.686 [id number] [facility] 2022-04-09 09:30:00 2022-04-09 09:30:00 Office [facility] BUILD[facility] 1.2.840.114 350.1.13.10 4.2.7.2.686 [id number] [facility] 2022-04-09 09:30:00 2022-04-09 09:21:44 Outpatient [facility] [id number] [facility] 2022-04-07 13:41:00 2022-04-07 17:49:00 Emergency X OLAMIDE GARVIN [facility] [id number] [facility] 2022-04-07 13:41:00 2022-04-07 17:49:00 Emergency Olamide Garvin G [facility] 1.2840.114 350.1.13.10 4.2.7.2.686 [id number] [facility] 2022-04-07 00:00:00 2022-04-07 00:00:00 Patient Secure Msg Doctor Unassigned, Onward [facility] 1..114 350.1.13.10 4.2.7.2.686 [id number] [facility] 2022-04-04 00:00:00 2022-04-04 00:00:00 Anastasiia Coelhossica [facility] MED[facility] OFFICE BUILD[facility] 1.84.114 350.1.13.10 4.2.7.2.686 [id number] [facility] 2022-04-02 10:30:00 2022-04-02 10:30:00 Outpatient KASSANDRA MCKINLEY [facility] [id number] [facility] 2022-03-28 00:00:00 2022-03-28 00:00:00 Patient Secure Msg Doctor Unassigned, Onward [facility] OFF[facility] BUILD[facility] 1.84.114 350.1.13.10 4.2.7.2.686 [id number] [facility] 2022-03-24 07:35:00 2022-03-24 13:11:00 Emergency X KELLIE DUNCAN [facility] E[facility] [id number] [facility] 2022-03-24 07:35:00 2022-03-24 13:11:00 Emergency Kellie Dunacn [facility] 1.2.114 350.1.13.10 4.2.7.2.686 [id number] [facility] 2022-03-23 10:30:00 2022-03-23 10:30:00 Outpatient KASSANDRA MCKINLEY [facility] [id number] [facility] 2022-03-23 00:00:00 2022-03-23 00:00:00 Telephone Darrion Wy[facility] TOÑO?[facility] 1.2.840.114 350.1.13.10 4.2.7.2.686 [id number] [facility] 2022-03-22 00:00:00 2022-03-22 00:00:00 Telephone Darrion [facility] TO[facility]O?[facility] 1..840.114 350.1.13.10 4.2.7.2.686 [id number] [facility] 2022-03-22 00:00:00 2022-03-22 00:00:00 Refill Darrion [facility] 1..840.114 350.1.13.10 4.2.7.2.686 [id number] [facility] 2022-03-21 00:00:00 2022-03-21 00:00:00 Telephone Darrion [facility] TO[facility] 1.2.840.114 350.1.13.10 4.2.7.2.686 [id number] [facility] 2022-03-15 14:00:00 2022-03-15 14:36:19 Outpatient R REJI DÍAZ [facility] [id number] [facility] 2022-03-15 14:00:00 2022-03-15 14:36:19 Office Visit Reji Díaz [facility] 1.2.840.114 350.1.13.10 4.2.7.2.686 [id number] [facility] 2022-03-15 08:40:2022-03-15 10:47:00 Emergency X ANNA GOULD [facility] [id number] [facility] 2022-03-15 08:40:00 2022-03-15 10:47:00 Emergency Anna Gould [facility] 1..840.114 350.1.13.10 4.2.7.2.686 [id number] [facility] 2022-03-14 10:30:00 2022-03-14 10:30:00 Outpatient PRASANNA LOOMIS [facility] [id number] [facility] 2022-03-11 09:22:00 2022-03-11 12:15:00 Emergency X ANGELICA VIVEROS [facility] [id number] [facility] [facility] 2022-03-11 09:22:00 2022-03-11 12:15:00 Emergency RosemarieAngelica triana [facility] 1.840.114 350.1.13.10 4.2.7.2.686 [id number] [facility] 2022-03-06 08:30:00 2022-03-06 08:30:00 Outpatient KASSANDRA MCKINLEY [facility] [id number] [facility] 2022-03-02 00:00:00 2022-03-02 00:00:00 Telephone Darrion Wyatt [facility] 1..840.114 350.1.13.10 4.2.7.2.686 [id number] [facility] 2022-02-28 00:00:00 2022-02-28 00:00:00 Patient Secure Msg Doctor Unassigned, Onward [facility] MEDICAL OFFICE BUILDING 1..840.114 350.1.13.10 4.2.7.2.686 [id number] [facility] 2022-02-27 09:30:00 2022-02-27 09:49:42 Outpatient R KASSANDRA PUGH [facility] [id number] [facility] 2022-02-27 09:30:00 2022-02-27 09:49:42 Office Visit Anastasiia Pughssica [facility] 1..840.114 350.1.13.10 4.2.7.2.686 [id number] [facility] 2022-02-27 08:00:00 2022-02-27 09:12:17 Office Visit Vijay Martinez [facility] MEDICAL OFFICE BUILDING 1..840.114 350.1.13.10 4.2.7.2.686 [id number] [facility] 2022-02-26 11:30:00 2022-02-26 11:30:00 Outpatient R KASSANDRA PUGH [facility] [id number] [facility] 2022-02-21 01:20:00 2022-02-21 03:44:00 Emergency X MAGGIE HAMILTON [facility] ERT [id number] [facility] 2022-02-21 01:20:00 2022-02-21 03:44:00 Emergency Maggie Hamilton [facility] 1..840.114 350.1.13.10 4.2.7.2.686 [id number] [facility] 2022-02-19 00:00:00 2022-02-19 00:00:00 Patient Secure Msg Kendal Zamudio [facility] MED[facility] OFF[facility] BUILD[facility] 1..840.114 350.1.13.10 4.2.7.2.686 [id number] [facility] 2022-02-19 00:00:00 2022-02-19 00:00:00 Patient Secure Msg Kendal Zamudio [facility] 1.84114 350.1.13.10 4.2.7.2.686 [id number] [facility] 2022-02-19 00:00:00 2022-02-19 00:00:00 Patient Secure Msg Ade [facility] 1.114 350.1.13.10 4.2.7.2.686 [id number] [facility] 2022-02-19 00:00:00 2022-02-19 00:00:00 Patient Secure Msg Martin Ross Farzana [facility] OBJECTS CONSERVATOR [facility] MATERNAL & CHILD HEALTH [facility] 1..114 350.1.13.10 4.2.7.2.686 [id number] [facility] 2022 11:58:00 2022 15:13:00 Emergency X MAGGIE HAMILTON [facility] ERT [id number] [facility] 2022 11:58:00 2022 15:13:00 Emergency Maggie Hamilton [facility] 1..114 350.1.13.10 4.2.7.2.686 [id number] [facility] 2022-02-09 09:00:00 2022-02-09 09:00:00 Outpatient R CRICKET TAYLOR [facility] [id number] [facility] 2022-02-06 10:00:00 2022-02-06 10:00:00 Outpatient VIJAY ARAUZ [facility] [id number] [facility] 2022-02-05 09:45:00 2022-02-05 10:05:00 Nurse Visit Nurse, Filippo Shirley [facility] Ileana Medrano [facility] 1.84.114 350.1.13.10 4.2.7.2.686 [id number] [facility] 2022-02-05 09:20:00 2022-02-05 09:20:00 Outpatient FLACO KEE [facility] [id number] [facility] 2022-01-26 00:00:00 2022-01-26 00:00:00 Case Management Prasanna Vargas [facility] 1..114 350.1.13.10 4.2.7.2.686 [id number] [facility] 2022-01-22 11:00:00 2022-01-22 11:00:00 Outpatient VIJAY ARAUZ [facility] [id number] [facility] 2022-01-19 00:00:00 2022-01-19 00:00:00 Patient Secure Msg Doctor Unassigned, Onward [facility] .114 350.1.13.10 4.2.7.2.686 [id number] [facility] 2022-01-18 05:17:00 2022-01-18 10:25:00 Emergency BERNARDO WALTON [facility] ERT [id number] [facility] 2022-01-18 05:17:00 2022-01-18 10:25:00 Emergency Jayy Kennedy [facility] ..114 350.1.13.10 4.2.7.2.686 [id number] [facility] 2022-01-15 08:34:00 2022-01-15 10:49:00 Emergency MAURA DALE [facility] ERT [id number] [facility] 2022-01-15 08:34:00 2022-01-15 10:49:00 Emergency Larry Perez Robert Lee [facility] ..114 350.1.13.10 4.2.7.2.686 [id number] [facility] 2022-01-08 18:04:00 2022-01-08 20:09:00 Emergency X HUMBERTO OCHOA [facility] ERT [id number] [facility] 2022-01-08 18:04:00 2022-01-08 20:09:00 Emergency Humberto Ochoa [facility] .2.840.114 350.1.13.10 4.2.7.2.686 [id number] [facility] 2021-12-12 13:30:00 2021-12-12 13:40:21 Outpatient Farzana [facility] [id number] [facility] 2021-12-12 13:30:00 2021-12-12 13:40:21 Office [facility] 1.2.840.114 350.1.13.10 4.2.7.2.686 [id number] [facility] 2021-12-12 13:30:00 2021-12-12 13:40:21 Outpatient aFrzana [facility] [id number] [facility] 2021-12-12 13:30:00 2021-12-12 13:40:21 Outpatient Farzana [facility] [id number] [facility] 2021-12-11 16:15:00 2021-12-11 16:15:00 Outpatient ADE KING [facility] [id number] [facility] 2021-12-05 14:15:00 2021-12-05 14:15:00 Outpatient ROMULO BROWNING [facility] [id number] [facility] 2021-11-28 08:49:00 2021-11-28 11:02:00 Emergency X ERROL KARON [facility] ERT [id number] [facility] 2021-11-28 08:49:00 2021-11-28 11:02:00 Emergency Karon Norton [facility] 1.2840.114 350.1.13.10 4.2.7.2.686 [id number] [facility] 2021-11-28 00:00:00 2021-11-28 00:00:00 Patient Secure Msg Cricket Taylor [facility] OBJECTS CONSERVATOR [facility] 1.0.114 350.1.13.10 4.2.7.2.686 [id number] [facility] 2021-11-24 18:14:00 2021-11-24 21:04:00 Emergency X Kaycee MÉNDEZ [facility] ERT [id number] [facility] 2021-11-24 18:14:00 2021-11-24 21:04:00 Emergency Kaycee Méndez [facility] 1.0.114 350.1.13.10 4.2.7.2.686 [id number] [facility] 2021-11-24 00:00:00 2021-11-24 00:00:00 Telephone Cricket Taylor [facility] OBJECTS CONSERVATOR [facility] 1.0.114 350.1.13.10 4.2.7.2.686 [id number] [facility] 2021-11-20 00:00:00 2021-11-20 00:00:00 Patient Secure Msg Kendal Zamudio [facility] 1.2.114 350.1.13.10 4.2.7.2.686 [id number] [id number] [facility] 2021-11-19 00:00:00 2021-11-19 00:00:00 Letter (Out) Noam, [facility] 1.2.840.114 350.1.13.10 4.2.7.2.686 [id number] [facility] 2021-11-18 10:41:40 2021-11-18 23:59:00 Outpatient R FLACO BOYD [facility] [id number] [facility] 2021-11-18 10:41:40 2021-11-18 23:59:00 Hospital Encounter Oliver [facility] MEDICAL OFFICE BUILDING 1..840.114 350.1.13.10 4.2.7.2.686 [id number] [facility] 2021-11-18 10:20:00 2021-11-18 10:53:20 [facility] MEDICAL OFFICE BUILDING 1..840.114 350.1.13.10 4.2.7.2.686 [id number] [facility] 2021-11-09 10:30:00 2021-11-09 10:30:00 Outpatient R CELINA MIXON [facility] [id number] [facility] 2021-10-25 13:20:00 2021-10-25 13:20:00 Urgent Care [place] [facility] MEDICAL OFFICE BUILDING 1..840.114 350.1.13.10 4.2.7.2.686 [id number] [facility] 2021-10-25 13:20:00 2021-10-25 12:47:59 Outpatient R ILEANA MEDRANO [facility] [id number] [facility] 2021-10-25 00:00:00 2021-10-25 00:00:00 Patient Secure [facility] [place] [facility] MED[facility] OFF[facility] BUILD[facility] 1..840.114 350.1.13.10 4.2.7.2.686 [id number] [facility] 2021-10-25 00:00:00 2021-10-25 00:00:00 Telephone Juan Vijay [facility] MEDICAL OFFICE BUILDING 1.2.840.114 350.1.13.10 4.2.7.2.686 [id number] [facility] 2021-10-25 00:00:00 2021-10-25 00:00:00 Telephone Provider, Filippo Shirley [facility] Care [facility] MEDICAL OFFICE BUILDING 1.2.840.114 350.1.13.10 4.2.7.2.686 [id number] [facility] 2021-10-25 00:00:00 2021-10-25 00:00:00 Telephone Nurse, Filippo Shirley [facility] MEDICAL OFFICE BUILDING 1.2.840.114 350.1.13.10 4.2.7.2.686 [id number] [facility] 2021-10-24 10:15:00 2021-10-24 10:15:00 Outpatient ROMULO BROWNING [facility] [id number] [facility] 2021-10-24 10:15:00 2021-10-24 10:15:00 Outpatient ROMULO BROWNING [facility] [id number] [facility] 2021-10-11 09:30:00 2021-10-11 09:30:00 Outpatient ROMULO BROWNING [facility] [id number] [facility] 2021-10-10 13:30:00 2021-10-10 13:30:00 Outpatient PRASANNA LOOMIS [facility] [id number] [facility] 2021-10-10 13:30:00 2021-10-10 13:30:00 Outpatient PRASANNA LOOMIS [facility] [id number] [facility] 2021-10-10 13:30:00 2021-10-10 13:30:00 Outpatient PRASANNA LOOMIS [facility] [id number] [facility] 2021-10-10 13:30:00 2021-10-10 13:30:00 Outpatient R PRASANNA VARGAS [facility] [id number] [facility] 2021-10-10 13:30:00 2021-10-10 13:30:00 Outpatient R PRASANNA VARGAS [facility] [id number] [facility] 2021-10-10 13:30:00 2021-10-10 13:30:00 Outpatient R PRASANNA VARGAS [facility] [id number] [facility] 2021-10-10 13:30:00 2021-10-10 13:30:00 Outpatient R PRASANNA VARGAS [facility] [id number] [facility] 2021-10-05 00:00:00 2021-10-05 00:00:00 [facility] MEDICAL OFFICE BUILDING 1.2.840.114 350.1.13.10 4.2.7.2.686 [id number] [facility] 2021-10-05 00:00:00 2021-10-05 00:00:00 Patient Secure Msg Robb [facility] MEDICAL OFFICE BUILDING 1.2.840.114 350.1.13.10 4.2.7.2.686 [id number] [facility] 2021-10-04 00:00:00 2021-10-04 00:00:00 Pre Visit Outreach Melia Rodriguez 1.2.840.114 350.1.13.10 4.2.7.2.686 [id number] [facility] 2021-09-28 13:30:00 2021-09-28 13:45:00 Office Visit [facility] 1.2.840.114 350.1.13.10 4.2.7.2.686 [id number] [facility] 2021-09-28 13:30:00 2021-09-28 13:30:00 Outpatient Farzana CELINA MIXON [facility] [id number] [facility] 2021-09-28 13:30:00 2021-09-28 13:30:00 Outpatient Farzana CELINA MIXON [facility] [id number] [facility] 2021-09-28 00:00:00 2021-09-28 00:00:00 Patient Secure Celina Zheng [facility] 1.2.840.114 350.1.13.10 4.2.7.2.686 [id number] [facility] 2021-09-27 14:00:00 2021-09-27 14:00:00 Outpatient TETO BRANTLEY [facility] [id number] [facility] 2021-09-27 09:30:00 2021-09-27 09:30:00 Outpatient R DANIA PENNINGTON [facility] [id number] [facility] 2021-09-27 09:30:00 2021-09-27 09:30:00 Outpatient DANIA RICARDO [facility] [id number] [facility] 2021-09-27 09:30:00 2021-09-27 09:30:00 Outpatient DANIA RICARDO [facility] [id number] [facility] 2021-09-26 10:45:00 2021-09-26 10:45:00 Outpatient R CRICKET TAYLOR [facility] [id number] [facility] 2021-09-26 10:45:00 2021-09-26 10:45:00 Outpatient R CRICKET TAYLOR [facility] [id number] [facility] 2021-09-26 00:00:00 2021-09-26 00:00:00 Patient Secure Vijay Caraballo [facility] MEDICAL OFFICE BUILDING 1.2.840.114 350.1.13.10 4.2.7.2.686 [id number] [facility] 2021-09-26 00:00:00 2021-09-26 00:00:00 Patient Secure Vijay Caraballo [facility] MEDICAL OFFICE BUILDING 1.2.840.114 350.1.13.10 4.2.7.2.686 [id number] [facility] 2021-09-25 10:20:00 2021-09-25 11:10:42 [facility]aco [facility] 1..840.114 350.1.13.10 4.2.7.2.686 [id number] [facility] 2021-09-25 10:20:00 2021-09-25 11:10:42 Outpatient R FLACO BOYD [facility] [id number] [facility] 2021-09-25 10:20:00 2021-09-25 10:20:00 Outpatient R FLACO BOYD [facility] [id number] [facility] 2021-09-25 10:00:00 2021-09-25 10:00:00 Outpatient R PRASANNA VARGAS [facility] [id number] [facility] 2021-09-25 00:00:00 2021-09-25 00:00:00 Telephone Flaco Boyd [facility] MEDICAL OFFICE BUILDING 1.2.840.114 350.1.13.10 4.2.7.2.686 [id number] [facility] 2021-09-25 00:00:00 2021-09-25 00:00:00 Patient Secure Msg Prasanna Vragas [facility] NAL BUILDING 1.2.840.114 350.1.13.10 4.2.7.2.686 [id number] [facility] 2021-09-25 00:00:00 2021-09-25 00:00:00 Telephone Cricket Taylor [facility] OBJECTS CON[facility] 1.2.840.114 350.1.13.10 4.2.7.2.686 [id number] [facility] 2021-09-25 00:00:00 2021-09-25 00:00:00 Telephone Celina Mixon [facility] 1.2.840.114 350.1.13.10 4.2.7.2.686 [id number] [facility] 2021-09-15 00:00:00 2021-09-15 00:00:00 Patient Secure Msg Kendal Zamudio [facility] MEDICAL OFFICE BUILDING 1.2.840.114 350.1.13.10 4.2.7.2.686 [id number] [facility] 2021-09-15 00:00:00 2021-09-15 00:00:00 Patient Secure Msg [facility] MEDICAL OFFICE BUILDING 1.2.840.114 350.1.13.10 4.2.7.2.686 [id number] [facility] 2021-09-15 00:00:00 2021-09-15 00:00:00 Patient Secure Msg Kendal Zamudio [facility] MEDICAL OFFICE BUILDING 1.2840.114 350.1.13.10 4.2.7.2.686 [id number] [facility] 2021-09-14 00:00:00 2021-09-14 00:00:00 Patient Secure Msg Vijay Martinez [facility] MEDICAL OFFICE BUILDING 1.2.114 350.1.13.10 4.2.7.2.686 [id number] [facility] 2021-09-14 00:00:00 2021-09-14 00:00:00 Patient Secure Msg Doctor Unassigned, Onward [facility] 1..114 350.1.13.10 4.2.7.2.686 [id number] [facility] 2021-09-12 10:30:00 2021-09-12 10:30:00 Outpatient CELINA STONE [facility] [id number] [facility] 2021-09-12 10:30:00 2021-09-12 10:30:00 Outpatient CELINA STONE [facility] [id number] [facility] 2021-09-12 00:00:00 2021-09-12 00:00:00 Patient Secure Msg Daniel Dsouza [facility] 1.114 350.1.13.10 4.2.7.2.686 [id number] [facility] 2021-09-12 00:00:00 2021-09-12 00:00:00 Orders Only Doctor Unassigned, Onward [facility] 1.0.114 350.1.13.10 4.2.7.2.686 [id number] [facility] 2021-09-12 00:00:00 2021-09-12 00:00:00 Patient Secure Msg Vijay Martinez [facility] MEDICAL OFFICE BUILDING 1.0.114 350.1.13.10 4.2.7.2.686 [id number] [id number] [facility] 2021-09-05 00:00:00 2021-09-05 00:00:00 Patient Secure Msg Vijay Martinez [facility] 1.840.114 350.1.13.10 4.2.7.2.686 [id number] [facility] 2021-09-05 00:00:00 2021-09-05 00:00:00 Patient Secure Msg Doctor Unassigned, Onward [facility] 1.0.114 350.1.13.10 4.2.7.2.686 [id number] [facility] 2021-09-05 00:00:00 2021-09-05 00:00:00 Patient Secure Msg Doctor Unassigned, Onward [facility] 1.0.114 350.1.13.10 4.2.7.2.686 [id number] [facility] 2021-09-04 00:00:00 2021-09-04 00:00:00 Patient Secure Msg Vijay Martinez [facility] MEDICAL OFFICE BUILDING 1.0.114 350.1.13.10 4.2.7.2.686 [id number] [facility] 2021-08-28 00:00:00 2021-08-28 00:00:00 Patient Secure Msg Harsh Charles [facility] 1..114 350.1.13.10 4.2.7.2.686 [id number] [facility] 2021-08-25 00:00:00 2021-08-25 00:00:00 Telephone Dania Pennington [facility] 1..114 350.1.13.10 4.2.7.2.686 [id number] [facility] 2021-08-25 00:00:00 2021-08-25 00:00:00 Patient Secure Msg Vijay Martinez [facility] MEDICAL OFFICE BUILDING 1.2840.114 350.1.13.10 4.2.7.2.686 [id number] [facility] 2021-08-24 00:00:00 2021-08-24 00:00:00 Telephone Vijay Martinez [facility] MEDICAL OFFICE BUILDING 1.2840.114 350.1.13.10 4.2.7.2.686 [id number] [facility] 2021-08-24 00:00:00 2021-08-24 00:00:00 Patient Secure Msg Vijay Martinez [facility] MEDICAL OFFICE BUILDING 1.2840.114 350.1.13.10 4.2.7.2.686 [id number] [facility] 2021-08-23 00:00:00 2021-08-23 00:00:00 Patient Secure Msg Vijay Martinez [facility] MEDICAL OFFICE BUILDING 1.2840.114 350.1.13.10 4.2.7.2.686 [id number] [facility] 2021-08-23 00:00:00 2021-08-23 00:00:00 Telephone Vijay Martinez [facility] MEDICAL OFFICE BUILDING 1.2840.114 350.1.13.10 4.2.7.2.686 [id number] [facility] 2021-08-22 00:00:00 2021-08-22 00:00:00 Telephone Vijay Martinez [facility] MEDICAL OFFICE BUILDING 1.2840.114 350.1.13.10 4.2.7.2.686 [id number] 044 [id number] [facility] 2021-08-22 00:00:00 2021-08-22 00:00:00 Patient Secure Msg Hallie Wilkinson [facility] MEDICAL OFFICE BUILDING 1.84114 350.1.13.10 4.2.7.2.686 [id number] [id number] [facility] 2021-08-18 00:00:00 2021-08-18 00:00:00 Telephone Vijay Martinez [facility] MEDICAL OFFICE BUILDING 1.84.114 350.1.13.10 4.2.7.2.686 [id number] [id number] [facility] 2021-08-17 09:00:00 2021-08-17 09:00:00 Outpatient CELINA STONE [facility] [id number] [facility] 2021-08-17 09:00:00 2021-08-17 09:00:00 Outpatient CELINA STONE [facility] [id number] [facility] 2021-08-17 00:00:00 2021-08-17 00:00:00 Patient Secure Msg Prasanna Vargas [facility] NAL BUILDING 1.84.114 350.1.13.10 4.2.7.2.686 [id number] [facility] 2021-08-17 00:00:00 2021-08-17 00:00:00 Patient Secure Msg Vijay Martinez [facility] MEDICAL OFFICE BUILDING 1.84.114 350.1.13.10 4.2.7.2.686 [id number] [facility] 2021-08-17 00:00:00 2021-08-17 00:00:00 Patient Secure Msg Vijay Martinez [facility] MED[facility] OFF[facility] BUILD[facility] 1.2840.114 350.1.13.10 4.2.7.2.686 [id number] [id number] [facility] 2021-08-16 00:00:00 2021-08-16 00:00:00 Patient Secure Msg Vijay Martniez [facility] LULU LUNDBERG?[facility] OFF[facility] BUILD[facility] 1.2840.114 350.1.13.10 4.2.7.2.686 [id number] [id number] [facility] 2021-08-16 00:00:00 2021-08-16 00:00:00 Patient Secure Msg Doctor Unassigned, Onward [facility] 1.2840.114 350.1.13.10 4.2.7.2.686 [id number] [facility] 2021-08-16 00:00:00 2021-08-16 00:00:00 Patient Secure Msg [facility]ijay Martinez [facility] MEDICAL OFFICE BUILDING 1.2840.114 350.1.13.10 4.2.7.2.686 [id number] [id number] [place] [facility] 00:00:00 2021-08-16 00:00:00 Patient Secure Msg Vijay [facility] 1.2840.114 350.1.13.10 4.2.7.2.686 [id number] [facility] 2021-08-15 15:30:00 2021-08-15 16:16:42 Office Visit Adán Kim Asim [facility] LULU LUN[facility]G?[facility] MEDICAL OFFICE BUILDING 1.2840.114 350.1.13.10 4.2.7.2.686 [id number] [facility] 2021-08-15 15:30:00 2021-08-15 16:16:42 Outpatient ADÁN DIEGO [facility] [id number] [facility] 2021-08-15 15:30:00 2021-08-15 15:30:00 Outpatient Farzana JUDY ADÁN [facility] [id number] [facility] 2021-08-15 15:30:00 2021-08-15 15:30:00 Outpatient ADÁN IDEGO [facility] [id number] [facility] 2021-08-15 15:30:00 2021-08-15 15:30:00 Outpatient ADÁN DIEGO [facility] [id number] [facility] 2021-08-15 09:27:00 2021-08-15 12:26:00 Emergency MAURA DALE [facility] ERT [id number] [facility] 2021-08-15 09:27:00 2021-08-15 12:26:00 Emergency Maura Samayoa [facility] 1..840.114 350.1.13.10 4.2.7.2.686 [id number] [facility] 2021-08-15 09:27:00 2021-08-15 12:26:00 Emergency MAURA DALE [facility] ERT [id number] [facility] 2021-08-15 00:00:00 2021-08-15 00:00:00 Patient Secure Msg Doctor Unassigned, Onward [facility] 1..840.114 350.1.13.10 4.2.7.2.686 [id number] [facility] 2021-08-14 13:25:00 2021-08-14 23:59:00 Outpatient VIJAY ARAUZ [facility] [id number] [facility] 2021-08-14 13:25:00 2021-08-14 23:59:00 Outpatient VIJAY ARAUZ [facility] [id number] [facility] 2021-08-14 13:25:00 2021-08-14 13:25:00 Outpatient R VIJAY MARTINEZ [facility] [id number] [facility] 2021-08-14 12:19:07 2021-08-14 13:24:00 Outpatient R VIJAY MARTINEZ [facility] [id number] [facility] 2021-08-14 12:19:07 2021-08-14 13:24:00 Outpatient R VIJAY MARTINEZ [facility] [id number] [facility] 2021-08-14 12:30:00 2021-08-14 13:01:24 Preassembler [employer] Visit Lab, Filippo ReneeRichelle [facility]Formerly [facility]reDAY[facility] MEDICAL OFFICE BUILDING 1.2.840.114 350.1.13.10 4.2.7.2.686 [id number] [facility] 2021-08-14 12:30:00 2021-08-14 12:45:00 Preassembler [employer] Visit Lab, Filippo ReneeRichelle cannonFormerly [facility] CAreDAYAMI [facility]?BESSKassandra [facility] MEDICAL OFFICE BUILDING 1..840.114 350.1.13.10 4.2.7.2.686 [id number] [facility] 2021-08-14 11:30:00 2021-08-14 12:31:12 Office Visit JuanVijay [facility] MEDICAL OFFICE BUILDING 1.2.840.114 350.1.13.10 4.2.7.2.686 [id number] [facility] 2021-08-14 11:30:00 2021-08-14 12:31:12 Outpatient R VÍCTORVIJAY Cannon [facility] [id number] [facility] 2021-08-14 00:00:00 2021-08-14 00:00:00 Patient Secure Msg Víctorkassandra [facility] MEDICAL OFFICE BUILDING 1.2.840.114 350.1.13.10 4.2.7.2.686 [id number] [facility] 2021-08-14 00:00:00 2021-08-14 00:00:00 Patient Secure Msg Vijay Martinez [facility] TO[facility] MEDICAL OFFICE BUILDING 1..840.114 350.1.13.10 4.2.7.2.686 [id number] [facility] 2021-08-09 14:45:00 2021-08-09 14:45:00 Outpatient R ADÁN KIM [facility] [id number] [facility] 2021-08-09 00:00:00 2021-08-09 00:00:00 Telephone Vijay Martinez [facility] MEDICAL OFFICE BUILDING 1..840.114 350.1.13.10 4.2.7.2.686 [id number] [facility] 2021-08-08 11:30:00 2021-08-08 23:59:00 Outpatient R VÍCTORRICHELLE CannonIE [facility] [id number] [facility] 2021-08-08 11:30:00 2021-08-08 23:59:00 Hospital Encounter Vijay Martinez [facility] TO[facility] MEDICAL OFFICE BUILDING 1..840.114 350.1.13.10 4.2.7.2.686 [id number] [facility] 2021-08-08 11:15:00 2021-08-08 11:15:00 Outpatient R JUANRICHELLEIE [facility] [id number] [facility] 2021-08-08 11:00:00 2021-08-08 11:00:00 Outpatient R JUAN VIJAY [facility] [id number] [facility] 2021-08-08 00:00:00 2021-08-08 00:00:00 Patient Secure Msg Doctor Unassigned, Onward [facility] 1..840.114 350.1.13.10 4.2.7.2.686 [id number] [facility] 2021-08-07 09:30:00 2021-08-07 10:23:21 Office Visit Vijay Martinez [facility] BU[facility] 1.2840.114 350.1.13.10 4.2.7.2.686 [id number] [facility] 2021-08-07 09:30:00 2021-08-07 10:23:21 Outpatient R VIJAY MARTINEZ [facility] [id number] [facility] 2021-08-07 09:30:00 2021-08-07 09:30:00 Outpatient R RICHELLE MARTINEZIE [facility] [id number] [facility] 2021-08-07 00:00:00 2021-08-07 00:00:00 Patient Secure Msg Vijay Martinez [facility] MEDICAL OFFICE BUILDING 1.2.840.114 350.1.13.10 4.2.7.2.686 [id number] [facility] 2021-08-07 00:00:00 2021-08-07 00:00:00 Patient Secure Msg Vijay Martinez [facility] MEDICAL OFFICE BUILDING 1.2840.114 350.1.13.10 4.2.7.2.686 [id number] [facility] 2021-08-07 00:00:00 2021-08-07 00:00:00 Patient Secure Msg OnurRichelle daileyCelina A [facility] [place] 1.2840.114 350.1.13.10 4.2.7.2.686 [id number] [facility] 2021-08-04 10:00:00 2021-08-04 10:00:00 Outpatient R PETRA RENO [facility] [id number] [facility] 2021-08-04 00:00:00 2021-08-04 00:00:00 Patient Secure Msg Vijay Martinez [facility] OFF[facility] BUILDING 1.2.840.114 350.1.13.10 4.2.7.2.686 [id number] [facility] 2021-08-03 11:00:00 2021-08-03 12:48:43 Office Visit Jayy Diaz [facility]. 1.2.840.114 350.1.13.10 4.2.7.2.686 [id number] [facility] 2021-08-03 11:00:00 2021-08-03 12:48:43 Outpatient JAYY YANG [facility] [id number] [facility] 2021-08-03 11:00:00 2021-08-03 11:00:00 Outpatient JAYY YANG [facility] [id number] [facility] 2021-08-03 00:00:00 2021-08-03 00:00:00 Patient Secure Celina Zheng [facility] 1..840.114 350.1.13.10 4.2.7.2.686 [id number] [facility] 2021-08-02 00:00:00 2021-08-02 00:00:00 [facility] 1.2.840.114 350.1.13.10 4.2.7.2.686 [id number] [facility] 2021-07-21 08:00:00 2021-07-21 08:52:53 Outpatient DARRION QUIROZ HOWARD [facility] [id number] [facility] 2021-07-17 11:30:00 2021-07-17 11:30:00 Outpatient VIJAY ARAUZ [facility] [id number] [facility] 2021-07-17 00:00:00 2021-07-17 00:00:00 Patient Secure Msg Vijay Martinez [facility] 1.2.840.114 350.1.13.10 4.2.7.2.686 [id number] [facility] 2021-06-19 00:00:00 2021-06-19 00:00:00 Telephone Vijay Martinez [facility] MEDICAL OFFICE BUILDING 1..840.114 350.1.13.10 4.2.7.2.686 [id number] [facility] 2021-06-09 00:00:00 2021-06-09 00:00:00 Telephone Laith D[facility] 1..840.114 350.1.13.10 4.2.7.2.686 [id number] [facility] 2021-06-06 11:15:00 2021-06-06 11:15:00 Outpatient Farzana [facility] [id number] [facility] 2021-06-06 11:15:00 2021-06-06 11:15:00 Outpatient TETO BRANTLEY [facility] [id number] [facility] 2021-06-02 15:45:00 2021-06-02 15:45:00 Outpatient R CLAUDETTE EVANS [facility] [id number] [facility] 2021-05-31 10:00:00 2021-05-31 10:46:31 Outpatient R JUANRICHELLEIE [facility] [id number] [facility] 2021-05-31 10:00:00 2021-05-31 10:46:31 Office Visit VíctorVijay cannon [facility] MEDICAL OFFICE BUILDING 1.2.840.114 350.1.13.10 4.2.7.2.686 [id number] [facility] 2021-05-31 10:00:00 2021-05-31 10:46:31 Outpatient VIJAY ARAUZ [facility] [id number] [facility] 2021-05-31 00:00:00 2021-05-31 00:00:00 Orders Only Doctor Unassigned, Onward [facility] 1.2.840.114 350.1.13.10 4.2.7.2.686 [id number] [facility] 2021-05-26 00:00:00 2021-05-26 00:00:00 Telephone Skylar Groves [facility] MEDICAL OFFICE BUILDING 1.2.840.114 350.1.13.10 4.2.7.2.686 [id number] [facility] 2021-05-26 00:00:00 2021-05-26 00:00:00 Patient Secure Msg [facility] 1.2.840.114 350.1.13.10 4.2.7.2.686 [id number] [facility] 2021-05-25 14:00:00 2021-05-25 14:30:00 Telemedici ne Visit Skylar Groves [facility] MEDICAL OFFICE BUILDING 1.2.840.114 350.1.13.10 4.2.7.2.686 [id number] [facility] 2021-05-25 14:00:00 2021-05-25 14:00:00 Outpatient SKYLAR CEBALLOS [facility] [id number] [facility] 2021-05-25 14:00:00 2021-05-25 14:00:00 Outpatient SKYLAR CEBALLOS [facility] [id number] [facility] 2021-05-25 00:00:00 2021-05-25 00:00:00 Patient Secure Msg Skylar Groves [facility] 1.2.840.114 350.1.13.10 4.2.7.2.686 [id number] 044 [id number] [facility] 2021-05-25 00:00:00 2021-05-25 00:00:00 Patient Secure Msg Skylar Groves [facility] MEDICAL OFFICE BUILDING 1.2.840.114 350.1.13.10 4.2.7.2.686 [id number] [id number] [facility] 2021-05-24 00:00:00 2021-05-24 00:00:00 Telephone Rad Serra [facility] BUILDING 1.2.840.114 350.1.13.10 4.2.7.2.686 [id number] [facility] 2021-05-24 00:00:00 2021-05-24 00:00:00 Patient Secure Msg Rad Serra [facility] NAL BUILDING 1.2.840.114 350.1.13.10 4.2.7.2.686 [id number] [facility] 2021-05-24 00:00:00 2021-05-24 00:00:00 Patient Secure Msg Claudette Evans [facility] MEDICAL OFFICE BUILDING 1.2.840.114 350.1.13.10 4.2.7.2.686 [id number] [facility] 2021-05-23 10:00:00 2021-05-23 10:00:00 Outpatient R [facility] [id number] [facility] 2021-05-23 10:00:00 2021-05-23 10:00:00 Outpatient R [facility] [id number] [facility] 2021-05-23 00:00:00 2021-05-23 00:00:00 Patient Secure Claudette Hinds [facility] 1..840.114 350.1.13.10 4.2.7.2.686 [id number] [id number] [facility] 2021-05-16 09:00:00 2021-05-16 09:00:00 Outpatient R TETO CARNES [facility] [id number] [facility] 2021-05-12 00:00:00 2021-05-12 00:00:00 Orders Only Doctor Unassigned, Onward [facility] 1..840.114 350.1.13.10 4.2.7.2.686 [id number] [facility] 2021-05-10 13:00:00 2021-05-10 13:00:00 Outpatient CARMELINA CEDILLOANITRA [facility] [id number] [facility] 2021-05-10 13:00:00 2021-05-10 13:00:00 Outpatient CARMELINA CEDILLOANITRA [facility] [id number] [facility] 2021-05-09 00:00:00 2021-05-09 00:00:00 Telephone Prasanna Vargas [facility] BUILDING 1..840.114 350.1.13.10 4.2.7.2.686 [id number] [facility] 2021-05-09 00:00:00 2021-05-09 00:00:00 Patient Secure Rad Serra [facility] BUILDING 1..840.114 350.1.13.10 4.2.7.2.686 [id number] [facility] 2021-05-08 16:00:00 2021-05-08 16:00:00 Outpatient JE CRABTREE [facility] [id number] [facility] 2021-05-08 16:00:00 2021-05-08 16:00:00 Outpatient JE CRABTREE [facility] [id number] [facility] 2021-05-08 00:00:00 2021-05-08 00:00:00 Patient Secure Msg Cornelius Serrazohra Kaycee.[facility] BU[facility] 1.2.840.114 350.1.13.10 4.2.7.2.686 [id number] [id number] [facility] 2021-05-08 00:00:00 2021-05-08 00:00:00 Patient Secure g Rad SerraPilarPauloPilar [facility] BUILDING 1.2.840.114 350.1.13.10 4.2.7.2.686 [id number] [facility] 2021-05-04 00:00:00 2021-05-04 00:00:00 Patient Secure g Rad SerraPilarPauloPilar [facility] NAL BUILDING 1.2.840.114 350.1.13.10 4.2.7.2.686 [id number] [facility] 2021-05-04 00:00:00 2021-05-04 00:00:00 Patient Secure Reji San [facility] BUILDING 1.2.840.114 350.1.13.10 4.2.7.2.686 [id number] [facility] 2021-05-03 11:15:36 2021-05-03 23:59:00 Outpatient REJI COOPER [facility] [id number] [facility] 2021-05-03 11:15:36 2021-05-03 23:59:00 Hospital Encounter Reji Díaz [facility] BUILDING 1.2840.114 350.1.13.10 4.2.7.2.686 [id number] [facility] 2021-05-03 00:00:00 2021-05-03 00:00:00 Telephone Claudette Evans [facility] MEDICAL OFFICE BUILDING 1.2840.114 350.1.13.10 4.2.7.2.686 [id number] 044 [id number] [facility] 2021-05-02 00:00:00 2021-05-02 00:00:00 Telephone Rad Serra.HPilar [facility] BUILDING 1.2840.114 350.1.13.10 4.2.7.2.686 [id number] [facility] 2021-05-02 00:00:00 2021-05-02 00:00:00 Patient Secure Msg Claudette Evans [facility] MEDICAL OFFICE BUILDING 1.2840.114 350.1.13.10 4.2.7.2.686 [id number] [id number] [facility] 2021-05-02 00:00:00 2021-05-02 00:00:00 Telephone Claudette Evans [facility] MEDICAL OFFICE BUILDING 1.2840.114 350.1.13.10 4.2.7.2.686 [id number] [facility] 2021-05-02 00:00:00 2021-05-02 00:00:00 Patient Secure Msg Rad Serra [facility] BUILDING 1.2840.114 350.1.13.10 4.2.7.2.686 [id number] [id number] [facility] 2021-05-02 00:00:00 2021-05-02 00:00:00 Patient Secure Claudette Hinds [facility] MEDICAL OFFICE BUILDING 1.114 350.1.13.10 4.2.7.2.686 [id number] [id number] [facility] 2021-04-28 00:00:00 2021-04-28 00:00:00 Patient Secure Claudette Hinds [facility] MEDICAL OFFICE BUILDING 1.84114 350.1.13.10 4.2.7.2.686 [id number] [facility] 2021-04-27 14:24:00 2021-04-27 15:49:00 Emergency X MAGGIE HAMILTON [facility] ERT [id number] [facility] 2021-04-27 14:24:00 2021-04-27 15:49:00 Emergency Maggie Hamilton [facility] 1.114 350.1.13.10 4.2.7.2.686 [id number] [facility] 2021-04-27 11:15:00 2021-04-27 11:30:00 Laboratory Only Only, Ang Db Test Unknown, Attending Thony Johnson [facility] MEDICAL OFFICE BUILDING 1.84114 350.1.13.10 4.2.7.2.686 [id number] [facility] 2021-04-27 11:15:00 2021-04-27 11:15:00 Outpatient R THONY JOHNSON [facility] [id number] [facility] 2021-04-27 00:00:00 2021-04-27 00:00:00 Orders Only Doctor Unassigned, Onward [facility] 1.84.114 350.1.13.10 4.2.7.2.686 [id number] [facility] 2021-04-20 15:00:00 2021-04-20 15:00:00 Outpatient EDER RENEE [facility] [id number] [facility] 2021-04-13 00:00:00 2021-04-13 00:00:00 Patient Secure Msg [facility] OFF[facility] BUILDING 1.2.840.114 350.1.13.10 4.2.7.2.686 [id number] [facility] 2021-04-12 00:00:00 2021-04-12 00:00:00 Telephone Claudette Evans [facility] BUILDING 1.2.840.114 350.1.13.10 4.2.7.2.686 [id number] [facility] 2021-03-27 00:00:00 2021-03-27 00:00:00 Telephone Prasanna Vargas [facility] BUILDING 1.2.840.114 350.1.13.10 4.2.7.2.686 [id number] [facility] 2021-03-24 00:00:00 2021-03-24 00:00:00 Patient Secure Msg Doctor Unassigned, Onward [facility] 1.2840.114 350.1.13.10 4.2.7.2.686 [id number] [facility] 2021-03-23 13:30:00 2021-03-23 13:30:00 Outpatient PINO AGUIAR [facility] [id number] [facility] 2021-03-23 13:30:00 2021-03-23 13:30:00 Outpatient R PINO HOFF [facility] [id number] [facility] 2021-03-22 09:20:00 2021-03-22 09:20:00 Outpatient R JEANNA, STRAHIL ATAMARIA LUZ, STRAHIL [facility] [id number] [facility] 2021-03-22 09:20:00 2021-03-22 09:20:00 Outpatient R ATAGERARDOOV, STRAHIL ATANASOV, STRAHIL [facility] [id number] [facility] 2021-03-20 00:00:00 2021-03-20 00:00:00 Outpatient R CLAUDETTE EVANS [facility] [id number] [facility] 2021-03-18 00:00:00 2021-03-18 00:00:00 Case Management CristinaClaudette ibrahim [facility] MEDICAL OFFICE BUILDING 1.2.840.114 350.1.13.10 4.2.7.2.686 [id number] [facility] 2021-03-16 11:16:07 2021-03-16 11:31:07 Preassembler [employer] Visit Lab, Ang - Db CristinaClaudette ibrahim [facility] MEDICAL OFFICE BUILDING 1.2.840.114 350.1.13.10 4.2.7.2.686 [id number] [facility] 2021-03-16 11:30:00 2021-03-16 11:30:00 Outpatient R CLAUDETTE EVANS [facility] [id number] [facility] 2021-03-16 11:00:00 2021-03-16 11:14:45 Outpatient R CLAUDETTE EVANS [facility] [id number] [facility] 2021-03-16 10:00:58 2021-03-16 11:14:45 Office Visit Claudette Evans [facility] LUUL [facility] MEDICAL OFFICE BUILDING 1.2.840.114 350.1.13.10 4.2.7.2.686 [id number] [facility] 2021-03-16 00:00:00 2021-03-16 00:00:00 Patient Secure Msg Claudette Evans [facility] TOÑO?[facility] MEDICAL OFFICE BUILDING 1.2.840.114 350.1.13.10 4.2.7.2.686 [id number] [facility] 2021-03-02 16:15:00 2021-03-02 16:15:00 Outpatient R CRISTINACARMELINA IBRAHIMTAINAANITRA [facility] [id number] [facility] 2021-02-28 18:30:00 2021-02-28 18:30:00 Outpatient R ILEANA MEDRANO [facility] [id number] [facility] 2021-02-28 00:00:00 2021-02-28 00:00:00 Telephone Claudette Evans [facility] Toño?[facility] Medical Office Building 1..840.114 350.1.13.10 4.2.7.2.686 [id number] [facility] 2021-02-27 09:00:00 2021-02-27 09:00:00 Outpatient R AMELIA HAMMOND [facility] [id number] [facility] 2021-02-23 00:00:00 2021-02-23 00:00:00 Telephone Claudette [facility] 1.2.840.114 350.1.13.10 4.2.7.2.686 [id number] 044 [id number] [facility] 2021-02-10 18:12:00 2021-02-10 23:39:00 Emergency Kaycee Méndez [facility] 1..840.114 350.1.13.10 4.2.7.2.686 [id number] [facility] 2021-02-10 00:00:00 2021-02-10 00:00:00 Patient Secure Msg [place], Wondiful Kassandra [facility] ANGLEDAYAMI FOFANAE?[facility] MEDICAL OFFICE BUILDING 1.2.840.114 350.1.13.10 4.2.7.2.686 [id number] [facility] 2021-02-10 00:00:00 2021-02-10 00:00:00 Patient Secure Msg Branden Evansful Kassandra [facility] ANGLEDAYAMI FOFANAE?[facility] MEDICAL OFFICE BUILDING 1.2.840.114 350.1.13.10 4.2.7.2.686 [id number] [facility] 2021-02-10 00:00:00 2021-02-10 00:00:00 Patient Secure Msg Branden Evansful Kassandra [facility] ANGLEDAYAMI LUNDBERG?[facility] MEDICAL OFFICE BUILDING 1.2840.114 350.1.13.10 4.2.7.2.686 [id number] 044 [id number] [facility] 2021-02-10 00:00:00 2021-02-10 00:00:00 Patient Secure Msg Branden Evansful Kassandra [facility] ANGLEDAYAMI FOFANAE?[facility] MEDICAL OFFICE BUILDING 1.2.840.114 350.1.13.10 4.2.7.2.686 [id number] [facility] 2021-02-09 13:40:00 2021-02-09 23:59:00 Hospital Encounter Claudette Evans [facility] [place] Dave?[facility] Medical Office Building 1.2.840.114 350.1.13.10 4.2.7.2.686 [id number] [facility] 2021-02-09 13:49:05 2021-02-09 14:04:05 [employer] Visit Lab, Filippo - [place] Claudette Evans [facility] [place] Toño?[facility] Medical Office Building 1.2.840.114 350.1.13.10 4.2.7.2.686 [id number] [facility] 2021-02-09 12:23:13 2021-02-09 13:47:12 [facility] Medical Office Building 1..840.114 350.1.13.10 4.2.7.2.686 [id number] [id number] [facility] 2021-02-09 13:00:00 2021-02-09 13:00:00 Outpatient R CLAUDETTE EVANS [facility] [id number] [facility] 2021-02-09 00:00:00 2021-02-09 00:00:00 Patient Secure Msg Doctor Unassigned, Onward [facility] 1.840.114 350.1.13.10 4.2.7.2.686 [id number] [facility] 2021-02-08 10:20:00 2021-02-08 10:20:00 Outpatient R ADITYA MEEKS STRAHIL [facility] [id number] [facility] 2021-02-07 00:00:00 2021-02-07 00:00:00 Patient Secure Msg Claudette [facility] LUN[facility]ERG?[facility] MEDICAL OFFICE BUILDING 1..840.114 350.1.13.10 4.2.7.2.686 [id number] [facility] 2021-02-02 10:30:00 2021-02-02 10:30:00 Outpatient R SKYLAR GROVES [facility] [id number] [facility] 2021-02-02 00:00:00 2021-02-02 00:00:00 Telephone [facility] Medical Office Building 1..840.114 350.1.13.10 4.2.7.2.686 [id number] [facility] 2021-02-01 08:30:00 2021-02-01 08:30:00 Outpatient R SKYLAR GROVES [facility] [id number] [facility] 2021-01-31 18:44:04 2021-01-31 19:41:26 [facility] Medical Office Building 1.84.114 350.1.13.10 4.2.7.2.686 [id number] [facility] 2021-01-31 19:00:00 2021-01-31 19:00:00 Outpatient R FLACO BOYD [facility] [id number] [facility] 2021-01-31 00:00:00 2021-01-31 00:00:00 Telephone Claudette Evans [facility] Toño?[facility] Medical Office Building 1.84.114 350.1.13.10 4.2.7.2.686 [id number] 044 [id number] [facility] 2021-01-31 00:00:00 2021-01-31 00:00:00 Patient Secure Msg Claudette Evans [facility] TOÑO?[facility] MEDICAL OFFICE BUILDING 1.84.114 350.1.13.10 4.2.7.2.686 [id number] [facility] 2021-01-30 00:00:00 2021-01-30 00:00:00 Telephone Rad Serra [facility] Edna [facility] Building 1.84.114 350.1.13.10 4.2.7.2.686 [id number] [facility] 2021-01-30 00:00:00 2021-01-30 00:00:00 Patient Secure Msg Claudette [facility] OFF[facility] BUILDING ONE .114 350.1.13.10 4.2.7.2.686 [id number] [facility] 2021-01-26 14:00:00 2021-01-26 14:00:00 Outpatient R RAD SERRA [facility] [id number] [facility] 2021-01-26 00:00:00 2021-01-26 00:00:00 Patient Secure Skylar Wu [facility] TOÑO?[facility] MEDICAL OFFICE BUILDING 1.2.840.114 350.1.13.10 4.2.7.2.686 [id number] [facility] 2021-01-25 15:00:00 2021-01-25 15:00:00 Outpatient R [facility] [id number] [facility] 2021-01-21 00:00:00 2021-01-21 00:00:00 Patient Secure Skylar Wu [facility] TOÑO?[facility] MEDICAL OFFICE BUILDING 1.2.840.114 350.1.13.10 4.2.7.2.686 [id number] [facility] 2021-01-20 16:51:22 2021-01-20 17:12:41 Telemedici ne Visit [facility]yl[facility] Medical Office Building 1.2.840.114 350.1.13.10 4.2.7.2.686 [id number] [facility] 2021-01-20 16:30:00 2021-01-20 16:30:00 Outpatient R SKYLAR GROVES [facility] [id number] [facility] 2021-01-19 10:15:00 2021-01-19 10:15:00 Outpatient R KAYLEY GARCÍA [facility] [id number] [facility] 2021-01-14 00:00:00 2021-01-14 00:00:00 Case Management Kassandra Robledo [facility] 1.2.840.114 350.1.13.10 4.2.7.2.686 [id number] [facility] 2021-01-14 00:00:00 2021-01-14 00:00:00 Patient Secure Msg Doctor Unassigned, Onward [facility] 1.2840.114 350.1.13.10 4.2.7.2.686 [id number] [facility] 2021-01-12 16:10:00 2021-01-12 19:45:00 Emergency Karin Matthews [facility] 1.2.840.114 350.1.13.10 4.2.7.2.686 [id number] [facility] 2021-01-12 15:20:00 2021-01-12 15:20:00 Outpatient ILEANA CASE [facility] [id number] [facility] 2021-01-12 14:46:57 2021-01-12 15:06:57 Urgent Care Thony Johnson [facility] Medical Office Building 1..840.114 350.1.13.10 4.2.7.2.686 [id number] [facility] 2020-12-26 15:30:00 2020-12-26 16:13:32 Outpatient RAD MATAMOROS [facility] [id number] [facility] 2020-12-26 15:30:00 2020-12-26 16:13:32 Office Visit Rad Serra [facility] PROFESSIO NAL BUILDING 1..840.114 350.1.13.10 4.2.7.2.686 [id number] [id number] [facility] 2020-12-26 15:00:32 2020-12-26 16:13:32 Office Visit Rad Serra [facility] Building 1.2.840.114 350.1.13.10 4.2.7.2.686 [id number] [facility] 2020-12-26 15:30:00 2020-12-26 15:30:00 Outpatient RAD MATAMOROS [facility] [id number] [facility] 2020-11-29 00:00:00 2020-11-29 00:00:00 Patient Secure Msg Serra Rad Cuello [facility] BUILDING 1.2.840.114 350.1.13.10 4.2.7.2.686 [id number] [facility] 2020-11-22 11:00:00 2020-11-22 11:00:00 Outpatient CELINA STONE [facility] [id number] [facility] 2020-11-10 18:42:46 2020-11-10 19:53:43 Urgent Care Alissa Collins [facility] Office Building One 1.2.840.114 350.1.13.10 4.2.7.2.686 [id number] 2020-11-10 19:00:00 2020-11-10 19:00:00 Outpatient R [facility] [id number] [facility] 2020-10-31 18:52:00 2020-10-31 22:15:00 Emergency Kaycee Méndez [facility] 1.2.840.114 350.1.13.10 4.2.7.2.686 [id number] 2020-10-31 19:00:00 2020-10-31 19:00:00 Outpatient R CARI KAUR [facility] [id number] [facility] 2020-10-31 00:00:00 2020-10-31 00:00:00 Orders Only Doctor Unassigned, Onward [facility] 1.2.840.114 350.1.13.10 4.2.7.2.686 [id number] 2020-10-20 14:02:00 2020-10-20 17:13:00 Emergency Kaycee Méndez [facility] 1.2.840.114 350.1.13.10 4.2.7.2.686 [id number] 2020-10-18 00:00:00 2020-10-18 00:00:00 Patient Secure Msg Prasanna Vargas [facility] BUILDING 1.2.840.114 350.1.13.10 4.2.7.2.686 [id number] [facility] 2020-10-14 10:00:00 2020-10-14 23:59:00 Hospital Encounter Prasanna Vargas [facility] 1.2.840.114 350.1.13.10 4.2.7.2.686 [id number] 2020-10-14 13:30:00 2020-10-14 13:30:00 Outpatient CELINA STONE [facility] [id number] [facility] 2020-10-11 00:00:00 2020-10-11 00:00:00 Patient Secure Msg Prasanna Vargas [facility] BUILDING 1.2.840.114 350.1.13.10 4.2.7.2.686 [id number] [facility] 2020-10-11 00:00:00 2020-10-11 00:00:00 Patient Secure Msg Prasanna Vargas [facility] BUILDING 1.2.840.114 350.1.13.10 4.2.7.2.686 [id number] [facility] 2020-10-09 12:00:00 2020-10-09 15:57:00 Emergency Anna Kim [facility] 1.2.840.114 350.1.13.10 4.2.7.2.686 [id number] 2020-10-07 00:00:00 2020-10-07 00:00:00 Patient Secure g [facility] 1.2.840.114 350.1.13.10 4.2.7.2.686 [id number] [facility] 2020-10-07 00:00:00 2020-10-07 00:00:00 Patient Secure g Prasanna Vargas [facility] BUILDING 1.2.840.114 350.1.13.10 4.2.7.2.686 [id number] [facility] 2020-10-07 00:00:00 2020-10-07 00:00:00 Patient Secure Msg Prasanna Vargas [facility] BUILDING 1.2.840.114 350.1.13.10 4.2.7.2.686 [id number] 134 [id number] [facility] 2020-10-07 00:00:00 2020-10-07 00:00:00 Patient Secure Msg Prasanna Vargas [facility] BUILDING 1.2.840.114 350.1.13.10 4.2.7.2.686 [id number] [facility] 2020-10-07 00:00:00 2020-10-07 00:00:00 Patient Secure Msg [facility] 1.2.840.114 350.1.13.10 4.2.7.2.686 [id number] [facility] 2020-10-07 00:00:00 2020-10-07 00:00:00 Patient Secure Msg [facility] 1.2.840.114 350.1.13.10 4.2.7.2.686 [id number] [facility] 2020-10-07 00:00:00 2020-10-07 00:00:00 Patient Secure Msg [facility] BU[facility] 1.2.840.114 350.1.13.10 4.2.7.2.686 [id number] [facility] 2020-10-06 08:53:00 2020-10-06 09:46:44 Office Visit Prasanna Vargas [facility] Building 1.2.840.114 350.1.13.10 4.2.7.2.686 [id number] 2020-10-06 09:30:00 2020-10-06 09:30:00 Outpatient R PRASANNA VARGAS [facility] [id number] [facility] 2020-10-04 14:00:00 2020-10-04 14:00:00 Outpatient CELINA STONE [facility] [id number] [facility] 2020-09-30 10:30:00 2020-09-30 10:30:00 Outpatient CELINA STONE [facility] [id number] [facility] 2020-09-29 13:45:00 2020-09-29 13:45:00 Outpatient PREET KRISHNA [facility] [id number] [facility] 2020-09-06 15:30:00 2020-09-06 15:30:00 Outpatient PRASANNA LOOMIS [facility] [id number] [facility] 2020-09-05 00:00:00 2020-09-05 00:00:00 Patient Secure [facility] BUILDING 1.2.840.114 350.1.13.10 4.2.7.2.686 [id number] 134 [id number] [facility] 2020-09-02 15:40:00 2020-09-02 15:40:00 Outpatient DARRION QUIROZ HOWARD [facility] [id number] [facility] 2020-08-31 10:30:00 2020-08-31 10:30:00 Outpatient RAD MATAMOROS [facility] [id number] [facility] 2020-08-31 00:00:00 2020-08-31 00:00:00 Patient Secure [facility] 1.2.840.114 350.1.13.10 4.2.7.2.686 [id number] 134 [id number] [facility] 2020-08-18 09:30:00 2020-08-18 09:30:00 Outpatient PRASANNA LOOMIS [facility] [id number] [facility] 2020-08-11 13:30:00 2020-08-11 13:30:00 Outpatient PRASANNA LOOMIS [facility] [id number] [facility] 2020-08-04 14:00:00 2020-08-04 14:00:00 Outpatient EDER RENEE [facility] [id number] [facility] 2020-07-28 10:30:00 2020-07-28 10:30:00 Outpatient RAD MATAMOROS [facility] [id number] [facility] 2020-06-30 16:15:00 2020-06-30 16:15:00 Outpatient CLAUDETTE CEDILLO [facility] [id number] [facility] 2020-06-17 15:00:00 2020-06-17 15:00:00 Outpatient DARRION QUIROZ HOWARD [facility] [id number] [facility] 2020-06-16 15:30:00 2020-06-16 15:30:00 Outpatient RAD MATAMOROS [facility] [id number] [facility] 2020-06-09 12:30:00 2020-06-09 12:30:00 Outpatient NI YUNG [facility] [id number] [facility] 2020-06-08 08:00:00 2020-06-08 08:00:00 Outpatient NI YUNG [facility] [id number] [facility] 2020-06-02 09:00:00 2020-06-02 09:00:00 Outpatient R RAD SERRA [facility] [id number] [facility] 2020-05-28 10:00:00 2020-05-28 10:00:00 Outpatient R CARI KAUR [facility] [id number] [facility] 2020-05-26 00:00:00 2020-05-26 00:00:00 Patient Secure Msg Claudette Evans [facility] ONE 1.2.840.114 350.1.13.10 4.2.7.2.686 [id number] [facility] 2020-05-24 10:00:00 2020-05-24 10:00:00 Outpatient NI YUNG [facility] [id number] [facility] 2020-05-24 00:00:00 2020-05-24 00:00:00 Patient Secure Msg Doctor Unassigned, Onward [facility] 1.2.840.114 350.1.13.10 4.2.7.2.686 [id number] [facility] 2020-05-19 16:30:00 2020-05-19 16:30:00 Outpatient OSITO AMARO [facility] [id number] [facility] 2020-05-17 13:00:00 2020-05-17 13:00:00 Outpatient DARRION QUIROZ HOWARD [facility] [id number] [facility] 2020-05-16 16:00:00 2020-05-16 16:00:00 Outpatient R CLAUDETTE EVANS [facility] [id number] [facility] 2020-05-09 00:00:00 2020-05-09 00:00:00 Patient Secure Carmelina Hindskacey [facility] ONE ..840.114 350.1.13.10 4.2.7.2.686 [id number] [facility] 2020-05-08 10:24:00 2020-05-08 13:03:00 Emergency X OLAMIDE GARVIN [facility] E[facility] [id number] [facility] 2020-05-03 15:00:00 2020-05-03 15:00:00 [facility] [id number] [facility] 2020-04-30 11:14:00 2020-05-01 15:50:00 Outpatient X RODRIGUEZ HOFF [facility] [id number] [facility] 2020-04-30 10:20:00 2020-04-30 10:20:00 Outpatient R ROSALES SHAY [facility] [id number] [facility] 2020-04-30 10:15:00 2020-04-30 10:15:00 Outpatient R ROSALES SHAY [facility] [id number] [facility] 2020-04-29 00:00:00 2020-04-29 00:00:00 Patient Secure g Osito Hitchcock [facility] ..840.114 350.1.13.10 4.2.7.2.686 [id number] [facility] [id number] [facility] 2020-04-28 14:00:00 2020-04-28 14:00:00 Outpatient R OSITO HITCHCOCK [facility] [id number] [facility] 2020-04-25 16:15:00 2020-04-25 16:15:00 Outpatient R CLAUDETTE EVANS [facility] [id number] [facility] 2020-04-22 00:00:00 2020-04-22 00:00:00 Patient Secure Msg Eder Fletcher [facility] 1.2.840.114 350.1.13.10 4.2.7.2.686 [id number] [facility] 2020-04-18 10:00:00 2020-04-18 10:00:00 Outpatient OSITO AMARO [facility] [id number] [facility] 2020-04-15 10:30:00 2020-04-15 10:30:00 Outpatient R RAD SERRA [facility] [id number] [facility] 2020-04-12 13:38:00 2020-04-13 16:25:00 [facility] [id number] [facility] 2020-03-17 16:15:00 2020-03-17 16:15:00 Outpatient TETO BRANTLEY [facility] [id number] [facility] 2020-03-04 00:00:00 2020-03-04 00:00:00 Mando Hitchcock Os[facility] .2.840.114 350.1.13.10 4.2.7.2.686 [id number] 2020-02-25 16:00:00 2020-02-25 16:00:00 Outpatient OSITO AMARO [facility] [id number] [facility] 2020 14:00:00 2020 14:00:00 Outpatient TETO BRANTLEY [facility] [id number] [facility] 2020-02-08 10:30:00 2020-02-08 10:30:00 Outpatient R PRASANNA VARGAS [facility] [id number] [facility] 2020-02-05 00:00:00 2020-02-05 00:00:00 Patient Secure Msg [facility] 1..840.114 350.1.13.10 4.2.7.2.686 [id number] 134 [id number] [facility] 2020-02-04 13:30:00 2020-02-04 13:30:00 Outpatient R JACK, OSITO [facility] [id number] [facility] 2020-01-23 10:15:00 2020-01-23 10:15:00 Outpatient R [facility] [id number] [facility] 2020-01-21 13:00:00 2020-01-21 13:00:00 Outpatient R JACK, OSITO [facility] [id number] [facility] 2020-01-14 16:00:00 2020-01-14 16:00:00 Outpatient R JACK OSITO [facility] [id number] [facility] 2020-01-05 13:45:00 2020-01-05 13:45:00 Outpatient R PRASANNA VARGAS [facility] [id number] [facility] 2020-01-05 00:00:00 2020-01-05 00:00:00 Patient Secure Msg Prasanna Vargas [facility] 1..840.114 350.1.13.10 4.2.7.2.686 [id number] [facility] 2019-12-03 10:30:00 2019-12-03 10:30:00 Outpatient R CRICKET TAYLOR [facility] [id number] [facility] 2019-11-27 11:00:00 2019-11-27 11:00:00 Outpatient R TETO CARNES [facility] [id number] [facility] 2019-11-26 00:00:00 2019-11-26 00:00:00 Patient Secure Msg Doctor Unassigned, Onward [facility] 1..840.114 350.1.13.10 4.2.7.2.686 [id number] [facility] 2019-11-25 08:00:2019-11-25 08:00:00 Outpatient R DEYVI TETO [facility] [id number] [facility] 2019-11-23 00:00:00 2019-11-23 00:00:00 Patient Secure Msg Doctor Unassigned, Onward [facility] 1.2.840.114 350.1.13.10 4.2.7.2.686 [id number] 134 [id number] [facility] 2019-11-18 10:00:00 2019-11-18 10:00:00 Outpatient Farzana CARNES TETO [facility] [id number] [facility] 2019-11-17 00:00:00 2019-11-17 00:00:00 Patient Secure Msg Doctor Unassigned, Onward [facility] 1.2.840.114 350.1.13.10 4.2.7.2.686 [id number] 134 [id number] [facility] 2019-11-13 00:00:00 2019-11-13 00:00:00 Patient Secure Msg Prasanna Vargas [facility] 1.2.840.114 350.1.13.10 4.2.7.2.686 [id number] 134 [id number] [facility] 2019-09-02 11:00:00 2019-09-02 11:00:00 Outpatient R CRICKET TAYLOR [facility] [id number] [facility] 2019-08-14 10:15:00 2019-08-14 10:15:00 Outpatient TETO BRANTLEY [facility] [id number] [facility] 2019-08-13 11:00:00 2019-08-13 11:00:00 Outpatient R CRICKET TAYLOR [facility] [id number] [facility] 2019-08-12 09:00:00 2019-08-12 09:00:00 Outpatient R [facility] [id number] [facility] 2019-07-20 16:06:00 2019-07-20 16:06:00 Outpatient PRASANNA HERRERA [facility] [id number] [facility] 2019-07-20 08:15:00 2019-07-20 08:15:00 Outpatient R CRICKET TAYLOR [facility] [id number] [facility] 2019-07-13 08:00:00 2019-07-13 08:00:00 Outpatient R CRICKET TAYLOR [facility] [id number] [facility] 2019-07-12 13:39:00 2019-07-12 13:39:00 Outpatient PRASANNA HERRERA [facility] [id number] [facility] 2019-07-06 13:00:00 2019-07-06 13:00:00 Outpatient R CRICKET TAYLOR [facility] [id number] [facility] 2019-06-13 10:40:46 2019-06-13 12:35:00 Emergency X SARAHI AVILA [facility] [id number] [facility] 2019-05-13 23:07:00 2019-05-14 09:15:00 Outpatient PRASANNA HERRERA [facility] [id number] [facility] Results Test Description Test Time Test Comments Results Result Co mments Source [facility] 16:39:24* Test Item Value Reference Range Interpretation Comme nts LIPASE (test code = 9643986078) 40 U/L 0-220 Lab Interpretation (test cod e = 88658-0) Normal [facility] PELVIS W [id number] 16:27:28EXAM: CT ABDOMEN PELVIS W CONTRAST HISTORY: [...] hypodensity isseen within the right gluteal soft tissue.[facility] CBC WITH [id number] 16:14:18* Test Item Value Reference Range Interpretation Comme nts WBC (test code = 6690-2) 6.32 See_Comment [Automated [employer]] The system which generated this result transmitted reference range: 4.30 - 11.10 10*3/?L. The reference range was not used to interpret this result as normal/abnormal. RBC (test code = 789-8) 4.61 See_Comment [Automated [employer]] The system which generated this result transmitted [...] 34.1 g/dL 31.6-35.1 RDW-SD (test code = 13017-6) 42.0 fL 39.0-49.9 RDW-CV (test code = 788-0) 13.0 % 12.0-15.5 PLT (test code = 777-3) 369 See_Comment H [Automated messa ge] The system which generated this result transmitted reference range: 166 - 358 10*3/?L. The reference range was not used to interpret this result as normal/abnormal. MPV (test code = 19477-7) 9.9 fL 9.5-12.9 NRBC/100 WBC (test code = 7379105433) 0.0 See_Comment [Automated [employer] ssage] The system which generated this result transmitted reference range: 0.0 - 10.0 /100 WBCs. The reference range was not used to interpret this result as normal/abnormal. NRBC x10^3 (test code = 3337497734) See_Comment [Automated messa ge] The system which generated this result transmitted reference range: 10*3/?L. The reference range was not used to interpret this result as normal/abnormal. GRAN MAT (NEUT) % (test code = 770-8) 64.8 % IMM GRAN % (test code = 7509335432) 0.50 % LYMPH % (test code = 736-9) 25.3 % MONO % (test code = 5905-5) 4.1 % EOS % (test code = 713-8) 4.7 % BASO % (test code = 706-2) 0.6 % GRAN MAT x10^3(ANC) (test code = 9661323401) 4.09 10*3/uL 1.88-7.09 IMM GRAN x10^3 (test code = 8691324039) 0.03 10*3/uL 0.00-0.06 LYMPH x10^3 (test code = 731-0) 1.60 10*3/uL 1.32-3.29 MONO x10^3 (test code = 742-7) 0.26 10*3/uL 0.33-0.92 L EOS x10^3 (test code = 711-2) 0.30 10*3/uL 0.03-0.39 BASO x10^3 (test code = 704-7) 0.04 10*3/uL 0.01-0.07 Lab Interpretation (test code = 25789-8) [id number] 15:31:00* Test Item Value Reference Range Interpretation Comme nts POCT PREG (test code = 1605) Negative On board controls acceptable with C Line (test code = 3574) Yes POCT PREG LOT # (test code = 3575) [id number] POCT PREG TEST DATE ( test code = 3576) 2024-07-21 Lab Interpretation (test cod e = 86982-0) Normal [facility] WITH [id number] 04:28:47* Test Item Value Reference Range Interpretation [...] 34.0 g/dL 31.6-35.1 RDW-SD (test code = 17215-0) 40.3 fL 39.0-49.9 RDW-CV (test code = 788-0) 13.1 % 12.0-15.5 PLT (test code = 777-3) 307 See_Comment [Automated messa ge] The system which generated this result transmitted reference range: 166 - 358 10*3/?L. The reference range was not used to interpret this result as normal/abnormal. MPV (test code = 41442-3) 11.0 fL 9.5-12.9 NRBC/100 WBC (test code = 1862451371) 0.0 See_Comment [Automated me ssage] The system which generated this result transmitted reference range: 0.0 - 10.0 /100 WBCs. The reference range was not used to interpret this result as normal/abnormal. NRBC x10^3 (test code = 8591893734) See_Comment [Automated messa ge] The system which generated this result transmitted reference range: 10*3/?L. The reference range was not used to interpret this result as normal/abnormal. GRAN MAT (NEUT) % (test code = 770-8) 52.0 % IMM GRAN % (test code = 7947241772) 0.20 % LYMPH % (test code = 736-9) 38.0 % MONO % (test code = 5905-5) 4.6 % EOS % (test code = 713-8) 4.6 % BASO % (test code = 706-2) 0.6 % GRAN MAT x10^3(ANC) (test code = 7601788773) 2.84 10*3/uL 1.88-7.09 IMM GRAN x10^3 (test code = 4049222733) 0.00-0.06 LYMPH x10^3 (test code = 731-0) 2.07 10*3/uL 1.32-3.29 MONO x10^3 (test code = 742-7) 0.25 10*3/uL 0.33-0.92 L EOS x10^3 (test code = 711-2) 0.25 10*3/uL 0.03-0.39 BASO x10^3 (test code = 704-7) 0.03 10*3/uL 0.01-0.07 Lab Interpretation (test code = 56453-0) Abnormal [facility]. METABOLIC PANEL (02332)2023-01-12 04:12:43* Test Item Value Reference Range Interpretation Comme nts NA (test code = 8167734409) 137 mmol/L 135-145 K (test code = 4859195157) 3.4 mmol/L 3.5-5.0 L CL (test code = 6574156205) 104 mmol/L 98-108 CO2 TOTAL (test code = 6949958167) 24 mmol/L 23-31 AGAP (test code = 5191396252) 9 2-16 BUN (test code = 7389688575) 2 mg/dL 7-23 L GLUCOSE (test code = 0111914523) 92 mg/dL 70-110 CREATININE (test code = 2190236561) 0.80 mg/dL 0.50-1.04 TOTAL BILI (test code = 7123781435) 0.4 mg/dL 0.1-1.1 CALCIUM (test code = 4962915822) 8.4 mg/dL 8.6-10.6 L T PROTEIN (test code = 8913751453) 6.3 g/dL 6.3-8.2 ALBUMIN (test code = 7480544327) 3.7 g/dL 3.5-5.0 ALK PHOS (test code = 4279447841) 87 U/L 34-122 ALTv (test code = 1742-6) 27 U/L 5-35 AST(SGOT) (test code = 3609116861) 33 U/L 13-40 eGFR (test code = 5579434640) 86.0 mL/min/1.73m2 WESLEY (test code = WESLEY) [...] imaging tests). Lab Interpretation (test code = 22245-3) Abnormal [facility]. METABOLIC PANEL (36151)2023-01-12 04:12:43* Test Item Value Reference Range Interpretation Comme nts NA (test code = 9213510690) 137 mmol/L 135-145 K (test code = 9033125578) 3.4 mmol/L 3.5-5.0 L CL (test code = 0733421437) 104 mmol/L 98-108 CO2 TOTAL (test code = 6584822235) 24 mmol/L 23-31 AGAP (test code = 5936537504) 9 2-16 BUN (test code = 6872838367) 2 mg/dL 7-23 L GLUCOSE (test code = 4328693258) 92 mg/dL 70-110 CREATININE (test code = 7006240794) 0.80 mg/dL 0.50-1.04 TOTAL BILI (test code = 7176058295) 0.4 mg/dL 0.1-1.1 CALCIUM (test code = 0323337495) 8.4 mg/dL 8.6-10.6 L T PROTEIN (test code = 1789557176) 6.3 g/dL 6.3-8.2 ALBUMIN (test code = 1793004260) 3.7 g/dL 3.5-5.0 ALK PHOS (test code = 6851331054) 87 U/L 34-122 ALTv (test code = 1742-6) 27 U/L 5-35 AST(SGOT) (test code = 6521425207) 33 U/L 13-40 eGFR (test code = 7271422800) 86.0 mL/min/1.73m2 WESLEY (test code = WESLEY) [...] imaging tests). Lab Interpretation (test code = 94823-9) [facility]:04 BETA HCG<2.39Non- female and male patients: <5 mIU/mL01/11/2023 11:07 PM [facility] Gestational Age ?Range (mIU/mL) 1-10 ?Weeks ?06-45274223-92 Weeks ?26268-03229701-55 Weeks ?0608-19763068-86 Weeks ?5308-174661 Biotin has been reported to cause a negative bias, interpret results relative to patient's use of biotin. Gestational Age ?Range (mIU/mL) 1-10 ?Weeks ?17-30866753-12 Weeks ?08458-15200334-07 Weeks ?6072-42927238-38 Weeks?1531-772273 Biotin has been reported to cause a negative bias, interpret results relative to patient's use of biotin. Gestational Age ?Range (mIU/mL) 1-10 ?Weeks ?18-83268848-92 Weeks ?06890-53267317-48 Weeks ?2025-66374736-95 Weeks ?1531-767075 Biotin has been reported to cause a negative bias, interpretresults relative to patient's use [facility] biotin[facility] 04:07:04BETA HCG<2.39Non- female and male patients: <5 mIU/mL01/11/2023 11:07 PM [facility] Gestational Age ?Range (mIU/mL) 1-10 ?Weeks ?33-23850357-52 Weeks ?14184-51869082-04 Weeks ?8208-98518099-35 Weeks ?1531-352597 Biotin has been reported to cause a negative bias, interpret results relative topatient's use of biotin. Gestational Age ?Range (mIU/mL) 1-10 ?Weeks ?96-38878682-92 Weeks ?97163-66095299-23 Weeks ?0604-28255571-92 Weeks?1531-303806 Biotin has been reported to cause a negative bias, interpret results relative to patient's use of biotin. Gestational Age ?Range (mIU/mL) 1-10 ?Weeks ?59-40358191-47 Weeks ?33051-71077371-68 Weeks ?3119-99726165-34 Weeks ?9419-283957 Biotin has been reported to cause a negative bias, interpretresults relative to patient's use of biotin.[facility] 2023-01-12 03:22:58* Test Item Value Reference Range Interpretation Comme nts LIPASE (test code = 1092622186) 41 U/L 0-220 Lab Interpretation (test cod e = 81420-7) Normal [facility]2023-09-02 03:22:58* Test Item Value Reference Range Interpretation Comme nts LIPASE (test code = 3797275883) 41 U/L 0-220 Lab Interpretation (test cod e = 17897-6) Normal [facility] [id number] 03:02:00* Test Item Value Reference Range Interpretation Comme nts POCT PREG (test code = 1605) Negative On board controls acceptable with C Line (test code = 3574) Yes POCT PREG LOT # (test code = 3575) [id number] POCT PREG TEST DATE ( test code = 3576) 05/15/2024 Lab Interpretation (test cod e = 43943-0) Normal [facility] [id number] 03:02:00* Test Item Value Reference Range Interpretation Comme nts POCT PREG (test code = 1605) Negative On board controls acceptable with C Line (test code = 3574) Yes POCT PREG LOT # (test code = 3575) [id number] POCT PREG TEST DATE ( test code = 3576) 05/15/2024 Lab Interpretation (test cod e = 14481-4) [facility] [id number] 00:23:34* Test Item Value Reference Range Interpretation Comme nts PREG SERUM (test code = 8418922927) Negative WESLEY (test code = WESLEY) Less than 10 IU/L. ?If low titer or ectopic is suspected, resubmit specimen in 48-72 hours. [facility]OLIC [facility] (29766)2022-07-31 23:58:12* Test Item Value Reference Range Interpretation Comme nts NA (test code = 6808092518) 140 mmol/L 135-145 K (test code = 6496831842) 3.6 mmol/L 3.5-5.0 CL (test code = 8497936170) 106 mmol/L 98-108 CO2 TOTAL (test code = 0314616474) 21 mmol/L 23-31 L AGAP (test code = 0553658633) 13 2-16 BUN (test code = 8949432694) 8 mg/dL 7-23 GLUCOSE (test code = 4843111373) 90 mg/dL 70-110 CREATININE (test code = 8434119909) 0.90 mg/dL 0.50-1.04 TOTAL BILI (test code = 6959327758) 0.5 mg/dL 0.1-1.1 CALCIUM (test code = 9860089871) 9.0 mg/dL 8.6-10.6 T PROTEIN (test code = 4791107623) 7.8 g/dL 6.3-8.2 ALBUMIN (test code = 4490517033) 4.6 g/dL 3.5-5.0 ALK PHOS (test code = 8597118410) 63 U/L 34-122 ALTv (test code = 1742-6) 23 U/L 5-35 AST(SGOT) (test code = 6201380815) 27 U/L 13-40 eGFR (test code = 8900202533) 75.1 mL/min/1.73m2 WESLEY (test code = WESLEY) [...] imaging tests). Lab Interpretation (test code = 13224-3) [facility] 23:57:32* Test Item Value Reference Range Interpretation Comme nts LIPASE (test code = 6808720465) 55 U/L 0-220 Lab Interpretation (test cod e = 62800-4) Normal [facility] WITH [id number] 23:47:31* Test Item Value Reference Range Interpretation Comme nts WBC (test code = 6690-2) 5.64 See_Comment [Automated [employer]] The system which generated this result transmitted reference range: 4.30 - 11.10 10*3/?L. The reference range was not used to interpret this result as normal/abnormal. RBC (test code = 789-8) 4.51 See_Comment [Balanced] The system which generated this result transmitted [...] 32.6 g/dL 31.6-35.1 RDW-SD (test code = 84967-7) 42.5 fL 39.0-49.9 RDW-CV (test code = 788-0) 13.0 % 12.0-15.5 PLT (test code = 777-3) 339 See_Comment [Automated messa ge] The system which generated this result transmitted reference range: 166 - 358 10*3/?L. The reference range was not used to interpret this result as normal/abnormal. MPV (test code = 24545-4) 9.4 fL 9.5-12.9 L NRBC/100 WBC (test code = 8083399001) 0.0 See_Comment [Automated [employer] ssage] The system which generated this result transmitted reference range: 0.0 - 10.0 /100 WBCs. The reference range was not used to interpret this result as normal/abnormal. NRBC x10^3 (test code = 4151401324) See_Comment [Automated messa ge] The system which generated this result transmitted reference range: 10*3/?L. The reference range was not used to interpret this result as normal/abnormal. GRAN MAT (NEUT) % (test code = 770-8) 51.2 % IMM GRAN % (test code = 8009549176) 0.20 % LYMPH % (test code = 736-9) 36.5 % MONO % (test code = 5905-5) 5.7 % EOS % (test code = 713-8) 5.9 % BASO % (test code = 706-2) 0.5 % GRAN MAT x10^3(ANC) (test code = 3227545892) 2.89 10*3/uL 1.88-7.09 IMM GRAN x10^3 (test code = 9147254420) 0.00-0.06 LYMPH x10^3 (test code = 731-0) 2.06 10*3/uL 1.32-3.29 MONO x10^3 (test code = 742-7) 0.32 10*3/uL 0.33-0.92 L EOS x10^3 (test code = 711-2) 0.33 10*3/uL 0.03-0.39 BASO x10^3 (test code = 704-7) 0.03 10*3/uL 0.01-0.07 Lab Interpretation (test code = 05805-9) [facility] [id number] 16:14:38* Test Item Value Reference Range Interpretation Comme nts POCT Molecular Strep (test c ode = 57728-3) Negative Negative Lab Interpretation (test cod e = 48492-2) Normal [facility]. METABOLIC PANEL (04986)2022-05-05 19:35:37* Test Item Value Reference Range Interpretation Comme nts NA (test code = 6096591210) 139 mmol/L 135-145 K (test code = 3815744349) 4.4 mmol/L 3.5-5.0 CL (test code = 1720579901) 104 mmol/L 98-108 CO2 TOTAL (test code = 1940479035) 22 mmol/L 23-31 L AGAP (test code = 5159477074) 2-16 BUN (test code = 3568013572) 11 mg/dL 7-23 GLUCOSE (test code = 2597976078) 95 mg/dL 70-110 CREATININE (test code = 4807318497) 0.71 mg/dL 0.50-1.04 TOTAL BILI (test code = 6317186196) 0.4 mg/dL 0.1-1.1 CALCIUM (test code = 8592095919) 9.1 mg/dL 8.6-10.6 T PROTEIN (test code = 6996018271) 7.9 g/dL 6.3-8.2 ALBUMIN (test code = 9514986921) 4.7 g/dL 3.5-5.0 ALK PHOS (test code = 6239113313) 114 U/L 34-122 ALTv (test code = 1742-6) 21 U/L 5-35 AST(SGOT) (test code = 6639817131) 21 U/L 13-40 eGFR (test code = 7953532020) mL/min/1.73m2 WESLEY (test code = WESLEY) Association [...] imaging tests). Lab Interpretation (test code = 64969-1) Abnormal [facility] WITH [id number] 19:25:37* Test Item Value Reference Range Interpretation Comme nts WBC (test code = 6690-2) See_Comment [Balanced] The system which generated this result transmitted reference range: 4.30 - 11.10 10*3/?L. The reference range was not used to interpret this result as normal/abnormal. RBC (test code = 789-8) See_Comment [Balanced] The system which generated this result transmitted [...] 32.9 g/dL 31.6-35.1 RDW-SD (test code = 51107-5) 41.7 fL 39.0-49.9 RDW-CV (test code = 788-0) 12.7 % 12.0-15.5 PLT (test code = 777-3) See_Comment H [Automated messa ge] The system which generated this result transmitted reference range: 166 - 358 10*3/?L. The reference range was not used to interpret this result as normal/abnormal. MPV (test code = 64098-3) 8.8 fL 9.5-12.9 L NRBC/100 WBC (test code = 9114531341) See_Comment [Automated [employer] ssage] The system which generated this result transmitted reference range: 0.0 - 10.0 /100 WBCs. The reference range was not used to interpret this result as normal/abnormal. NRBC x10^3 (test code = 6631073512) See_Comment [Automated messa ge] The system which generated this result transmitted reference range: 10*3/?L. The reference range was not used to interpret this result as normal/abnormal. GRAN MAT (NEUT) % (test code = 770-8) 56.1 % IMM GRAN % (test code = 1973408805) 0.40 % LYMPH % (test code = 736-9) 29.9 % MONO % (test code = 5905-5) 5.4 % EOS % (test code = 713-8) 7.8 % BASO % (test code = 706-2) 0.4 % GRAN MAT x10^3(ANC) (test code = 4562953299) 3.75 10*3/uL 1.88-7.09 IMM GRAN x10^3 (test code = 5761353359) 0.03 10*3/uL 0.00-0.06 LYMPH x10^3 (test code = 731-0) 2.00 10*3/uL 1.32-3.29 MONO x10^3 (test code = 742-7) 0.36 10*3/uL 0.33-0.92 EOS x10^3 (test code = 711-2) 0.52 10*3/uL 0.03-0.39 H BASO x10^3 (test code = 704-7) 0.03 10*3/uL 0.01-0.07 Lab Interpretation (test code = 69606-0) [facility] [id number] 19:00:00* Test Item Value Reference Range Interpretation Comme nts POCT PREG (test code = 1605) negative On board controls acceptable with C Line (test code = 3574) present POCT PREG LOT # (test code = 3575) [id number] POCT PREG TEST DATE ( test code = 3576) 08-11-2023 Lab Interpretation (test cod e = 97318-1) Normal [facility] WITH [id number] 15:21:11* Test Item Value Reference Range Interpretation [...] 33.0 g/dL 31.6-35.1 RDW-SD (test code = 10039-6) 42.6 fL 39.0-49.9 RDW-CV (test code = 788-0) 12.9 % 12.0-15.5 PLT (test code = 777-3) See_Comment H [Automated messa ge] The system which generated this result transmitted reference range: 166 - 358 10*3/?L. The reference range was not used to interpret this result as normal/abnormal. MPV (test code = 73481-3) 9.1 fL 9.5-12.9 L NRBC/100 WBC (test code = 9348149356) See_Comment [Automated me ssage] The system which generated this result transmitted reference range: 0.0 - 10.0 /100 WBCs. The reference range was not used to interpret this result as normal/abnormal. NRBC x10^3 (test code = 6462285577) See_Comment [Automated messa ge] The system which generated this result transmitted reference range: 10*3/?L. The reference range was not used to interpret this result as normal/abnormal. GRAN MAT (NEUT) % (test code = 770-8) 56.8 % IMM GRAN % (test code = 3295921037) 0.30 % LYMPH % (test code = 736-9) 29.5 % MONO % (test code = 5905-5) 4.3 % EOS % (test code = 713-8) 8.3 % BASO % (test code = 706-2) 0.8 % GRAN MAT x10^3(ANC) (test code = 9459546414) 3.57 10*3/uL 1.88-7.09 IMM GRAN x10^3 (test code = 0302126279) 0.00-0.06 LYMPH x10^3 (test code = 731-0) 1.85 10*3/uL 1.32-3.29 MONO x10^3 (test code = 742-7) 0.27 10*3/uL 0.33-0.92 L EOS x10^3 (test code = 711-2) 0.52 10*3/uL 0.03-0.39 H BASO x10^3 (test code = 704-7) 0.05 10*3/uL 0.01-0.07 Lab Interpretation (test code = 38605-2) Abnormal [facility]. METABOLIC PANEL (99624)2022-04-26 15:12:13* Test Item Value Reference Range Interpretation Comme nts NA (test code = 5736797172) 141 mmol/L 135-145 K (test code = 9445015674) 3.4 mmol/L 3.5-5.0 L CL (test code = 4230663943) 104 mmol/L 98-108 CO2 TOTAL (test code = 1128837913) 23 mmol/L 23-31 AGAP (test code = 4484127230) 2-16 BUN (test code = 3278275593) 9 mg/dL 7-23 GLUCOSE (test code = 5760753241) 101 mg/dL 70-110 CREATININE (test code = 4852278489) 0.82 mg/dL 0.50-1.04 TOTAL BILI (test code = 0674189721) 0.7 mg/dL 0.1-1.1 CALCIUM (test code = 6717268341) 9.3 mg/dL 8.6-10.6 T PROTEIN (test code = 4565741060) 8.1 g/dL 6.3-8.2 ALBUMIN (test code = 9585045629) 4.7 g/dL 3.5-5.0 ALK PHOS (test code = 3922688225) 108 U/L 34-122 ALTv (test code = 1742-6) 24 U/L 5-35 AST(SGOT) (test code = 3287147005) 49 U/L 13-40 H eGFR (test code = 0592208184) mL/min/1.73m2 WESLEY (test code = WESLEY) Association [...] imaging tests). Lab Interpretation (test code = 22027-2) Abnormal [facility] [id number] 14:45:00* Test Item Value Reference Range Interpretation Comme nts POCT PREG (test code = 1605) negative On board controls acceptable with C Line (test code = 3574) present POCT PREG LOT # (test code = 3575) [id number] POCT PREG TEST DATE ( test code = 3576) 08/11/2023 Lab Interpretation (test cod e = 46315-8) Normal [facility] [id number] 01:22:00* Test Item Value Reference Range Interpretation Comme nts POCT PREG (test code = 1605) Negative On board controls acceptable with C Line (test code = 3574) Present POCT PREG LOT # (test code = 3575) [id number] POCT PREG TEST DATE ( test code = 3576) 08-11-2023 Lab Interpretation (test cod e = 20522-7) Normal [facility] METABOLIC PANEL (NA, K, CL, CO2, GLUCOSE, BUN, CREATININE, CA)2022-04-07 23:01:10* Test Item Value Reference Range Interpretation Comme nts NA (test code = 4271815686) 138 mmol/L 135-145 K (test code = 4812144801) 4.3 mmol/L 3.5-5.0 CL (test code = 2909930797) 107 mmol/L 98-108 CO2 TOTAL (test code = 0433473019) 20 mmol/L 23-31 L AGAP (test code = 4153951936) 2-16 BUN (test code = 2855535073) 9 mg/dL 7-23 GLUCOSE (test code = 9310781411) 204 mg/dL 70-110 H CREATININE (test code = 3071272915) 0.74 mg/dL 0.50-1.04 CALCIUM (test code = 4723201920) 9.1 mg/dL 8.6-10.6 eGFR (test code = 2232071813) mL/min/1.73m2 WESLEY (test code = WESLEY) Association [...] imaging tests). Lab Interpretation (test code = 27405-4) Abnormal [facility] WITH [id number] 22:57:34* Test Item Value Reference Range Interpretation Comme nts WBC (test code = 6690-2) See_Comment [Automated [employer]] The system which generated this result transmitted reference range: 4.30 - 11.10 10*3/?L. The reference range was not used to interpret this result as normal/abnormal. RBC (test code = 789-8) See_Comment [Automated [employer]] The system which generated this result transmitted [...] 33.5 g/dL 31.6-35.1 RDW-SD (test code = 01166-4) 42.9 fL 39.0-49.9 RDW-CV (test code = 788-0) 13.4 % 12.0-15.5 PLT (test code = 777-3) See_Comment H [Automated messa ge] The system which generated this result transmitted reference range: 166 - 358 10*3/?L. The reference range was not used to interpret this result as normal/abnormal. MPV (test code = 14207-5) 8.9 fL 9.5-12.9 L NRBC/100 WBC (test code = 9555823618) See_Comment [Automated [employer] ssage] The system which generated this result transmitted reference range: 0.0 - 10.0 /100 WBCs. The reference range was not used to interpret this result as normal/abnormal. NRBC x10^3 (test code = 7260172386) See_Comment [Automated messa ge] The system which generated this result transmitted reference range: 10*3/?L. The reference range was not used to interpret this result as normal/abnormal. GRAN MAT (NEUT) % (test code = 770-8) 88.7 % IMM GRAN % (test code = 3990020060) 0.70 % LYMPH % (test code = 736-9) 9.4 % MONO % (test code = 5905-5) 0.9 % EOS % (test code = 713-8) 0.1 % BASO % (test code = 706-2) 0.2 % GRAN MAT x10^3(ANC) (test code = 1192614272) 7.81 10*3/uL 1.88-7.09 H IMM GRAN x10^3 (test code = 2384638677) 0.06 10*3/uL 0.00-0.06 LYMPH x10^3 (test code = 731-0) 0.83 10*3/uL 1.32-3.29 L MONO x10^3 (test code = 742-7) 0.08 10*3/uL 0.33-0.92 L EOS x10^3 (test code = 711-2) 0.03-0.39 L BASO x10^3 (test code = 704-7) 0.01-0.07 Lab Interpretation (test code = 64321-8) Abnormal [facility] [id number] 14:07:00* Test Item Value Reference Range Interpretation Comme nts POCT PREG (test code = 1605) negative On board controls acceptable with C Line (test code = 3574) present POCT PREG LOT # (test code = 3575) [id number] POCT PREG TEST DATE ( test code = 3576) 08/11/2023 Lab Interpretation (test cod e = 28378-1) Normal [facility] [id number] 13:52:00* Test Item Value Reference Range Interpretation Comme nts POCT PREG (test code = 1605) negative On board controls acceptable with C Line (test code = 3574) present Lab Interpretation (test cod e = 21413-9) Normal [facility] [id number] 14:59:00* Test Item Value Reference Range Interpretation Comme nts POCT PREG (test code = 1605) negative On board controls acceptable with C Line (test code = 3574) yes POCT PREG LOT # (test code = 3575) [id number] POCT PREG TEST DATE ( test code = 3576) 07/11/2023 Lab Interpretation (test cod e = 45319-2) Normal [facility] METABOLIC PANEL (81585)2022 17:51:43* Test Item Value Reference Range Interpretation Comme nts NA (test code = 4733041956) 139 mmol/L 135-145 K (test code = 4508252708) 4.1 mmol/L 3.5-5 CL (test code = 6049380944) 104 mmol/L 98-108 CO2 TOTAL (test code = 4631743162) 22 mmol/L 23-31 L AGAP (test code = 8105030002) 2-16 BUN (test code = 3809259225) 7 mg/dL 7-23 GLUCOSE (test code = 8067373757) 114 mg/dL 70-110 H CREATININE (test code = 2058089894) 0.69 mg/dL 0.5-1.04 TOTAL BILI (test code = 2340499121) 0.4 mg/dL 0.1-1.1 CALCIUM (test code = 6713517277) 9.7 mg/dL 8.6-10.6 T PROTEIN (test code = 0284961945) 7.2 g/dL 6.3-8.2 ALBUMIN (test code = 5087049150) 4.6 g/dL 3.5-5 ALK PHOS (test code = 4967984095) 65 U/L 34-122 ALTv (test code = 1742-6) 15 U/L 5-35 AST(SGOT) (test code = 3184045758) 19 U/L 13-40 eGFR (test code = 2133886338) mL/min/1.73m2 WESLEY (test code = WESLEY) Association [...] imaging tests). Lab Interpretation (test code = 09760-8) Abnormal [facility] WITH [id number] 17:40:24* Test Item Value Reference Range Interpretation Comme nts WBC (test code = 6690-2) See_Comment [Automated [employer]] The system which generated this result transmitted reference range: 4.30 - 11.10 10*3/?L. The reference range was not used to interpret this result as normal/abnormal. RBC (test code = 789-8) See_Comment [Automated [employer]] The system which generated this result [...] 33.3 g/dL 31.6-35.1 RDW-SD (test code = 04829-6) 43.1 fL 39-49.9 RDW-CV (test code = 788-0) 13.2 % 12-15.5 PLT (test code = 777-3) See_Comment [Automated [employer]] The system which generated this result transmitted reference range: 166 - 358 10*3/?L. The reference range was not used to interpret this result as normal/abnormal. MPV (test code = 79348-7) 9.5 fL 9.5-12.9 NRBC/100 WBC (test code = 9725646790) See_Comment [Automated [employer] ssage] The system which generated this result transmitted reference range: 0.0 - 10.0 /100 WBCs. The reference range was not used to interpret this result as normal/abnormal. NRBC x10^3 (test code = 6256575861) See_Comment [Automated messa ge] The system which generated this result transmitted reference range: 10*3/?L. The reference range was not used to interpret this result as normal/abnormal. GRAN MAT (NEUT) % (test code = 770-8) 57.8 % IMM GRAN % (test code = 3529264281) 0.20 % LYMPH % (test code = 736-9) 30.8 % MONO % (test code = 5905-5) 5.1 % EOS % (test code = 713-8) 5.6 % BASO % (test code = 706-2) 0.5 % GRAN MAT x10^3(ANC) (test code = 8094178768) 3.61 10*3/uL 1.88-7.09 IMM GRAN x10^3 (test code = 4638033361) 0-0.06 LYMPH x10^3 (test code = 731-0) 1.92 10*3/uL 1.32-3.29 MONO x10^3 (test code = 742-7) 0.32 10*3/uL 0.33-0.92 L EOS x10^3 (test code = 711-2) 0.35 10*3/uL 0.03-0.39 BASO x10^3 (test code = 704-7) 0.03 10*3/uL 0.01-0.07 Lab Interpretation (test code = 71506-4) [facility] PTVS8326-32-13 17:27:00* Test Item Value Reference Range Interpretation Comme nts POCT PREG (test code = 1605) negative On board controls acceptable with C Line (test code = 3574) present POCT PREG LOT # (test code = 3575) [id number] POCT PREG TEST DATE ( test code = 357) Lab Interpretation (test cod e = 70627-0) Normal [facility] 12:45:21* Test Item Value Reference Range Interpretation Comme nts LIPASE (test code = 0077438690) 41 U/L 0-220 Lab Interpretation (test cod e = 59853-2) Normal [facility] RYMO2418-00-80 10:57:00* Test Item Value Reference Range Interpretation Comme nts POCT PREG (test code = 1605) Negative On board controls acceptable with C Line (test code = 3574) Present POCT PREG LOT # (test code = 3575) [id number] POCT PREG TEST DATE ( test code = 3576) 03/12/2023 Lab Interpretation (test cod e = 06508-8) Normal [facility] METABOLIC PANEL (NA, K, CL, CO2, GLUCOSE, BUN, CREATININE, CA)2022-01-18 10:56:51* Test Item Value Reference Range Interpretation Comme nts NA (test code = 9444531871) 137 mmol/L 135-145 K (test code = 9478201232) 4.6 mmol/L 3.5-5 Slight hemolysis CL (test code = 9514252961) 108 mmol/L 98-108 CO2 TOTAL (test code = 8022604584) 22 mmol/L 23-31 L AGAP (test code = 0407913682) 2-16 BUN (test code = 3427503135) 11 mg/dL 7-23 Slight hemolysis GLUCOSE (test code = 4977572404) 83 mg/dL 70-110 CREATININE (test code = 1549832548) 0.68 mg/dL 0.5-1.04 CALCIUM (test code = 8943430403) 8.8 mg/dL 8.6-10.6 eGFR (test code = 4893766133) mL/min/1.73m2 WESLEY (test code = WESLEY) Association [...] imaging tests). Lab Interpretation (test code = 52824-1) [facility]normal [facility] (35837) (ALB,T.PRO,BILI T,BU/BC,ALT,AST,ALK PHOS)2022-01-18 10:56:51* Test Item Value Reference Range Interpretation Comme nts TOTAL BILI (test code = 5886241783) 0.6 mg/dL 0.1-1.1 BILI UNCON (test code = 8036430691) 0.1 mg/dL 0.1-1.1 BILI CONJ (test code = 5187750385) 0.0 mg/dL 0-0.3 T PROTEIN (test code = 4111850537) 8.6 g/dL 6.3-8.2 H ALBUMIN (test code = 4200594179) 5.1 g/dL 3.5-5 H ALK PHOS (test code = 5355489240) 79 U/L 34-122 ALTv (test code = 1742-6) 117 U/L 5-35 H AST(SGOT) (test code = 9821881114) 163 U/L 13-40 H Lab Interpretation (test cod e = 87222-7) Abnormal [facility] TEST, DRMQN0343-77-88 10:54:25* Test Item Value Reference Range Interpretation Comme nts PREG SERUM (test code = 7287927538) Negative WESLEY (test code = WESLEY) Less than 10 IU/L. ?If low titer or ectopic is suspected, resubmit specimen in 48-72 hours. [facility] WITH KGVG0891-75-54 10:40:49* Test Item Value Reference Range Interpretation [...] 33.6 g/dL 31.6-35.1 RDW-SD (test code = 01343-0) 45.3 fL 39-49.9 RDW-CV (test code = 788-0) 14.5 % 12-15.5 PLT (test code = 777-3) See_Comment [Automated messa ge] The system which generated this result transmitted reference range: 166 - 358 10*3/?L. The reference range was not used to interpret this result as normal/abnormal. MPV (test code = 57342-2) 9.5 fL 9.5-12.9 NRBC/100 WBC (test code = 8353100576) See_Comment [Automated [employer] ssage] The system which generated this result transmitted reference range: 0.0 - 10.0 /100 WBCs. The reference range was not used to interpret this result as normal/abnormal. NRBC x10^3 (test code = 1528283645) See_Comment [Automated messa ge] The system which generated this result transmitted reference range: 10*3/?L. The reference range was not used to interpret this result as normal/abnormal. GRAN MAT (NEUT) % (test code = 770-8) 47.6 % IMM GRAN % (test code = 7182143770) 0.60 % LYMPH % (test code = 736-9) 39.9 % MONO % (test code = 5905-5) 5.9 % EOS % (test code = 713-8) 5.3 % BASO % (test code = 706-2) 0.7 % GRAN MAT x10^3(ANC) (test code = 8894375646) 4.45 10*3/uL 1.88-7.09 IMM GRAN x10^3 (test code = 9243360523) 0.06 10*3/uL 0-0.06 LYMPH x10^3 (test code = 731-0) 3.74 10*3/uL 1.32-3.29 H MONO x10^3 (test code = 742-7) 0.55 10*3/uL 0.33-0.92 EOS x10^3 (test code = 711-2) 0.50 10*3/uL 0.03-0.39 H BASO x10^3 (test code = 704-7) 0.07 10*3/uL 0.01-0.07 Lab Interpretation (test code = 51302-6) Abnormal [facility] SDUU1748-33-11 18:31:00* Test Item Value Reference Range Interpretation Comme nts POCT PREG (test code = 1605) Negative On board controls acceptable with C Line (test code = 3574) Yes POCT PREG LOT # (test code = 3575) POCT PREG TEST DATE ( test code = 3576) [facility] URINALYSIS W/O SPECIFIC SQREGQM9741-19-00 18:31:00* Test Item Value Reference Range Interpretation [...] = 3257) Trace Negative - Negati ve [facility] Consult Notes Date/Time Note Provider Source 2023-01-12 00:12:43 9246-96-33O63:12:43A ssociated Order(s): CONSULT GENERAL SURGERY TRAUMA/ACS Surgery [...] symptomatic cholelithiasis 1.5 months ago at OSH ([facility]). Pt states that she has had persistent RUQ pain with nausea and po intolerance along with intermittent chills and vomiting since surgery. Was seen by PCP and instructed to come to [facility] ED for further evaluation. Review of [...] N/A 07/21/2019 Surgeon: Prasanna Vargas MD; Location: [facility] Delivery OR Location TUBAL LIGATION N/A 07/21/2019 Surgeon: Prasanna Vargas MD; Location: [facility] Delivery OR Location [...] skin once every month. 1 mL 3 Swkebvnzrt-Dpyjfcqoxrugl-Lmje (FIORICET) 50-300-40 mg per capsule Take 1 [...] symptomatic cholelithiasis 1.5 months ago at OSH ([facility]).Plan:[facility] serviceConsult IR for percutaneous drainage of [...] nausea, anorexia since lap pasquale at [facility] on 12/01/22 with noted venous bleeding [...] Surgery, and Surgical Critical Care In-house Pager: [phone] [id number], Amy1.2.840.049261.1.13.104.2.7.2.208760Zsl kphWrwZN4980-02-75O80:39:26Consult noteTXT1.2.840.975316.1.13.104.2.7.2.79308 9|[id number] for patient dsju32641-4Xztugbb noteLNUTMBUNM [facility] - [address] Vj[id number] HAPZQICZYYHQRLYK1363-56-17S56:39:261.2.840 .578846.1.72.3.15|1.2.840.600514.1.13.104. 2.7.2.727879_[id number] [facility] - [facility] History and Physical Notes Date/Time Note Provider Source 2023-01-12 01:05:04 4702-61-51N10:05:04F ormatting of this note might be different from the original.01/12/23 1:05 AM Please refer to consult note written by Rodolfo Riggins DO on 01/12/23 for complete H&P.NITESH Gandara-2 Surgery Resident ssociated attestation - Mirella Vergara MD - 01/12/2023 1:47 AM CDT Pjowc17436-3Ptceqyw and physical xmweZC2097826Ohruks, Amy1.2.840.058555.1.13.104.2.7.2.101306Dmr inbGavRW1717-07-22V86:47:52History and physical noteTXT1.2.840.393096.1.13.104.2.7.2.62633 9|4019167135NDYafsitwyr for patient xgng41896-4Tupmfmc and physical noteLNUTMB[address] DawzWoox[id number] YZQWUNIBQLSMLRVS8222-50-61S22:47:521.2.840 .364422.1.72.3.15|1.2.840.569979.1.13.104. 2.7.2.727879_[id number] [facility] Notes Date/Time Note Provider Source 2023-08-27 16:08:07 7318-12-97L21:08:07F ormatting of this note is different from the original.TRANSITIONAL CARE MANAGEMENT ASSESSMENT08/27/2023karmailiana DysonEjcdfdv559328IYloae Nelia Dyson is a 28 year old /White female was admitted on 08/23/23 to [facility], [address] She was discharged on 08/24/23 with discharge disposition of HR- Routine Discharge.Admitting Physician: Mee Lim Diagnosis: Cerebrovascular accident (CVA), unspecified mechanism [Pt. Voiced her thoughts about [facility], not pleased with care provided.Plans to not f/u with [facility].Pt. Inquired about results MY chart issue due to pt. Came in the hospital not alert. Instructed via the AVS it is under the other name Dominick Adamson 08/23/2023 - 08/24/2023 Neurology/Neurological Surgery ([address]). Pt. Access via the AVS page 4 there.Pt. Has gone under this chart Karis with no results found. Gave HIM contact number for further assistance.No linked episodesTCM Tce-lked-vo-face outreach documentation:Discharge AssessmentChart Assessed: 08/27/23TCM Outreach Completed: [...] 9:30 AM ADC MOBILE MRI 1 (1.5T) [facility], [facility] [phone] signed by Marlys Odell LVN at 08/27/2023 4:11 PM XUB89378-5Hachuiabc encounter ByejNB8296-03-64P70:11:06Telephon e encounter NoteTXT1.2.840.783184.1.13.104.2. 7.2.841638|[id number] for patient uwyh73679-3ErxzUZTAWRHIZWXIpxyify ed C-CDA narrative pqqw520457220Ergslmdlcs Rivas [address] YrjdArwpmnphzFytdehdimMNWF5105207 491JJRKFASLNBPPFFNXDSZOIV9551-51- 16T16:11:061.2.840.401003.1.72.3. 15|1.2.840.312853.1.13.104.2.7.2. 727879_[id number] Marlys Odell LVN [facility] 2023-08-26 13:35:01 3884-70-14S12:35:01F ormatting of this note might be different from the original.TRANSITIONAL CARE MANAGEMENT ASSESSMENT4Angiliana DysonIoarlwp562007AFhath Nelia Dyson is a 28 year old /White female was admitted on 08/23/[address] She was discharged on 08/24/23 with discharge disposition of HR- Routine Discharge.Admitting Physician: Mee Lim Diagnosis: Cerebrovascular accident (CVA), unspecified mechanism [I63.9]No contact.No linked episodesTCM Zpi-bsua-ju-face outreach documentation:Future Appointments: 49104-3Rpfnvfvya encounter HrwnTA7984-67-66J35:37:22Telephon e encounter NoteTXT1.2.840.011237.1.13.104.2. 7.2.655426|0928336200FEHksjejnfp for patient odtk38233-4ZirgKMMDVZQAXCNEthjufg ed C-CDA narrative [address]TXTX[address] 795VESWEATTJJFZQMPFSRHZLF6136-35- 15T13:37:221.2.840.354132.1.72.3. 15|1.2.840.246813.1.13.104.2.7.2. 727879_[id number] [facility] 2023-05-19 12:16:00 3647-25-03I37:16:00F ormatting of this note might be different [...] with steady gait, in no apparent distress. 46459-9Dyusiwrwx department JujjGI2675-24-49H08:20:15[facility] NoteTXT1.2.840.345018.1.13.104.2. 7.2.852589|[id number] for patient nhwr56250-4FcktMWJPBECPQUESbdbmxi ed C-CDA narrative [address]TXTX[address] 564JTHDRGOKTKMFJDNULTHHUU0862-69- 07T12:20:151.2.840.103146.1.72.3. 15|1.2.840.090026.1.13.104.2.7.2. 727879_[id number] [facility] 2023-05-19 08:50:00 9280-06-26Q88:50:00F ormatting of this note might be different from the original.Patient came in with complaints of epigastric pain that radiates to her left shoulder associated with nausea and vomiting since a couple of weeks now. Patient states that she was worked up in [facility] 2 weeks ago and found nothing wrong, just referred to a GI doctor but she hasn't seen one because she has no insurance. 33776-7Scohblcrw department Triage egblEZ7568-46-08C06:01:49Emergen y department Triage noteTXT1.2.840.124635.1.13.104.2. 7.2.242545|2362115151LROlfnemlzc for patient yugp65248-2Xpoaeslat department NoteLNNARRATIVEFormatted C-CDA narrative nhii522128888Sxqewhni C Heredia RNUT[address] QjucEigwnyilyIzyhvmvlxDSNL1034567 109MLUVNHLEWEMMESITONSLRK4259-80- 07T09:01:491.2.840.633786.1.72.3. 15|1.2.840.518541.1.13.104.2.7.2. 727879_[id number] Syeda Ruiz RN [facility] 2023-01-16 10:56:45 0168-85-68D63:56:45F ormatting of this note is different from the original.TRANSITIONAL CARE MANAGEMENT ASSESSMENT01/16/2023 Nikko DysonKjmiyyz145363PKdpjw Nelia Dyson is a 27 year old /White female was admitted on 01/11/23 to [facility] 9C. She was discharged on 01/15/23 with discharge disposition of HR- Routine Discharge.Admitting Physician: Misty Steele Diagnosis: Postprocedural intraabdominal abscess [T81.43XA]Pt. Verbalized understanding discharge instructions. Plans to f/u with pcp.Linked Episodes Type: Episode: Status: Noted: Resolved: Last update: Updated by: TRANSITION OF CARE tcm Active 01/16/2023 01/16/2023 10:56 AM Marlys Odell LVN Comments: TCM Ndn-ltql-xx-face outreach documentation:Discharge AssessmentChart Assessed: 01/16/23TCM Outreach Completed: [...] with the names or descriptions of any nxkd-rin-cezfuks or supplements you are currently taking?: YesSuppliesDid [...] or concerns at this time?: NoFuture Appointments: 03472-9Zwmwoqneg encounter XzmcUI1585-34-39K69:57:41Telephon e encounter NoteTXT1.2.840.164307.1.13.104.2. 7.2.279360|8764506548LPTbsrqnvov for patient zrtj10399-4LjirJB346475964Xfqfuzc tte Odell [address] UcoaDacseupccXqymzosjvYIGR9273688 144MXWKEDNRABFETGOPHRALUW1097-12- 06T10:57:411.2.840.663874.1.72.3. 15|1.2.840.244970.1.13.104.2.7.2. 727879_[id number] Marlys Odell [facility] 2023-01-15 18:18:34 6688-65-60P27:18:34F ormatting of this note might be different [...] by Vero Crews RNOutcome: Progressing as expected 62165-4Nqrc of care oycfIP7330-52-78J98:18:58Plan of care noteTXT1.2.840.759321.1.13.104.2. 7.2.791869|6323906025LXWipftmehe for patient cabx95837-0NijgSSGCDVKDGB[address]TXTX[address] 261RXTTUFLEYWDVCQMEAYLPSW7017-42- 05T18:18:581.2.840.507103.1.72.3. 15|1.2.840.998549.1.13.104.2.7.2. 727879_[id number] [facility] 2023-01-15 15:08:00 7629-13-84C92:08:00F ormatting of this note might be different from the original.Called outpatient pharmacy and spoke to Maggi. [facility]ated pharmacy will bring patient's medications to her room within 45min to an hour. 36934-5Yqttj QnlmJW8227-40-62D68:49:16Nurse NoteTXT1.2.840.458550.1.13.104.2. 7.2.574923|5608060340OJZsfvdjire for patient wjbe77143-5Kkdwo CrtsFF416011151Lmuyizw R Hanegan [address]TXTX[address] 191PMUIEOLVSRATSXVLBDIJAF3011-11- 05T15:49:161.2.840.428317.1.72.3. 15|1.2.840.361092.1.13.104.2.7.2. 727879_[id number] Vero Crews RN [facility] 2023-01-15 13:11:00 2707-92-23S78:11:00F ormatting of this note might be different from the original.Problem: Infection RiskGoal: Absence of infectionOutcome: Progressing as expected Problem: PainGoal: Control of pain at or below patient's documented comfort goalOutcome: Progressing as expectedGoal: Reduction in pain sensationOutcome: Progressing as expected Problem: Discharge PlanningGoal: Adequate for dischargeOutcome: Progressing as expectedGoal: Effective communicationOutcome: Progressing as expected 68101-7Jzos of care ymszTL0036-88-80E89:11:04Plan of care noteTXT1.2.840.113991.1.13.104.2. 7.2.197772|3950576205VJTalvfulqh for patient uccp85632-4CqbjHMIZTTHRNE[address]TXTX[address] 283ZRBMYRRIHPKMGWNOXNQPOK3628-91- 05T13:11:041.2.840.118119.1.72.3. 15|1.2.840.858230.1.13.104.2.7.2. 727879_[id number] [facility] 2023-01-15 06:25:22 6281-24-75H39:25:22F ormatting of this note might be different from the original.Problem: Infection RiskGoal: Absence of infectionOutcome: Progressing as expected Problem: PainGoal: Control of pain at or below patient's documented comfort goalOutcome: Progressing as expectedGoal: Reduction in pain sensationOutcome: Progressing as expected Problem: Discharge PlanningGoal: Adequate for dischargeOutcome: Progressing as expectedGoal: Effective communicationOutcome: Progressing as expected 27054-2Ictw of care qsryUE1707-65-16X29:25:24Plan of care noteTXT1.2.840.799650.1.13.104.2. 7.2.376972|7425594638HOXphjhltyd for patient bpqc30107-0KlmzPZ063507771Ichig M Miguelangel RN[address]TXTX[address] 508GJPCTTCPRAOOTHWEDJHIFD7025-62- 05T06:25:241.2.840.891462.1.72.3. 15|1.2.840.276925.1.13.104.2.7.2. 727879_[id number] Katy Amaral Miguelangel [facility] 2023-01-14 09:27:52 3751-77-21J93:27:52F ormatting of this note might be different from the original.Problem: Infection RiskGoal: Absence of infectionOutcome: Progressing as expected Problem: PainGoal: Control of pain at or below patient's documented comfort goalOutcome: Progressing as expectedGoal: Reduction in pain sensationOutcome: Progressing as expected Problem: Discharge PlanningGoal: Adequate for dischargeOutcome: Progressing as expectedGoal: Effective communicationOutcome: Progressing as expected 73395-7Wokc of care cggkOA3769-00-84E76:27:55Plan of care noteTXT1.2.840.618318.1.13.104.2. 7.2.249592|7683188654JHLejrrdbxx for patient pfmx81585-5DampSQ070455816Nndt W Martinez RNUT[address]TXTX[address] 283HVNZHWRNRENXDVTOBYQRXN2199-30- 04T09:27:551.2.840.399401.1.72.3. 15|1.2.840.720435.1.13.104.2.7.2. 727879_[id number] Charles Win RN [facility] 2023-01-13 22:20:47 9636-46-65H14:20:47F ormatting of this note might be different from the original.Notified MD by page due to double dose of Tylenol being given. Per MD Brito no more Tylenol to be given for tonight. 15756-9Xamzy FojdIZ5009-73-76Q90:25:15Nurse NoteTXT1.2.840.104721.1.13.104.2. 7.2.398004|8580843567ONSpzkosopp for patient flnb69094-2GxdsFFZMUPWIIQ[address] [place], [place] [address] 915UFTIYWGCHRHHFCMFGHLGIL7043-66- 03T22:25:151.2.840.967350.1.72.3. 15|1.2.840.751548.1.13.104.2.7.2. 727879_[id number] [facility] 2023-01-13 21:55:20 5773-60-33F10:55:20F ormatting of this note might be different from the original.Problem: Infection RiskGoal: Absence of infectionOutcome: Progressing as expected Problem: PainGoal: Control of pain at or below patient's documented comfort goalOutcome: Progressing as expectedGoal: Reduction in pain sensationOutcome: Progressing as expected Problem: Discharge PlanningGoal: Adequate for dischargeOutcome: Progressing as expectedGoal: Effective communicationOutcome: Progressing as expected 90643-3Qjno of care vazoBO6875-53-38M96:55:38Plan of care noteTXT1.2.840.926796.1.13.104.2. 7.2.511832|9436823847MJTpbhpwqmv for patient wkxd06419-6DcjcIGITLFKBCW[address] [place], [place] [address] 785QZEBQFJWHOCSODUILHVQTJ3149-81- 03T21:55:381.2.840.781699.1.72.3. 15|1.2.840.076766.1.13.104.2.7.2. 727879_[id number] [facility] 2023-01-13 08:20:43 3120-77-50G92:20:43F ormatting of this note might be different from the original.Problem: Infection RiskGoal: Absence of infectionOutcome: Progressing as expected Problem: PainGoal: Control of pain at or below patient's documented comfort goalOutcome: Progressing as expectedGoal: Reduction in pain sensationOutcome: Progressing as expected Problem: Discharge PlanningGoal: Adequate for dischargeOutcome: Progressing as expectedGoal: Effective communicationOutcome: Progressing as expected 85158-7Ocne of care edcvQS3431-05-91W41:20:46Plan of care noteTXT1.2.840.377801.1.13.104.2. 7.2.120909|3355359568SGJkavtdjyo for patient uyjl72740-8QhmlPFFAQEDWIJ[address] QagaBszawgupxGkcsqbooyZGMB4027224 222QWJWIAPZOPJMKNGMGZUDOL4914-93- 03T08:20:461.2.840.442665.1.72.3. 15|1.2.840.357051.1.13.104.2.7.2. 727879_[id number] [facility] 2023-01-12 20:10:08 5866-39-34Q61:10:08F ormatting of this note might be different from the original.Problem: Infection RiskGoal: Absence of infectionOutcome: Progressing as expected Problem: PainGoal: Control of pain at or below patient's documented comfort goalOutcome: Progressing as expectedGoal: Reduction in pain sensationOutcome: Progressing as expected Problem: Discharge PlanningGoal: Adequate for dischargeOutcome: Progressing as expectedGoal: Effective communicationOutcome: Progressing as expected 97681-4Yntu of care eigaLZ1096-43-01E54:10:14Plan of care noteTXT1.2.840.446801.1.13.104.2. 7.2.983309|0406282598AQDdrqqcpab for patient rgfb84585-7IxlgMWIORNXDAS[address]TXTX[address] 214FAWEHWLWLUYJUHNNLXRKEI2202-10- 02T20:10:141.2.840.452050.1.72.3. 15|1.2.840.971990.1.13.104.2.7.2. 727879_[id number] [facility] 2023-01-12 09:28:38 3065-03-46W17:28:38F ormatting of this note might be different from the original.Problem: Infection RiskGoal: Absence of infectionOutcome: Progressing as expected Problem: PainGoal: Control of pain at or below patient's documented comfort goalOutcome: Progressing as expectedGoal: Reduction in pain sensationOutcome: Progressing as expected Problem: Discharge PlanningGoal: Adequate for dischargeOutcome: Progressing as expectedGoal: Effective communicationOutcome: Progressing as expected 67214-8Vaxf of care kbfxCC0632-25-69J51:28:40Plan of care noteTXT1.2.840.063426.1.13.104.2. 7.2.183192|3585891435RFCzxagpsol for patient gvom79392-1XcbzTZZWGUEYSU[address]TXTX[address] 911YOPAPKEMJWKKCKRAGFTZYZ8093-03- 02T09:28:401.2.840.361462.1.72.3. 15|1.2.840.749777.1.13.104.2.7.2. 727879_[id number] [facility] 2023-01-12 05:17:00 5437-87-26K84:17:00F ormatting of this note might be different from the original.Problem: Infection RiskGoal: Absence of infectionOutcome: Progressing as expected Problem: PainGoal: Control of pain at or below patient's documented comfort goalOutcome: Progressing as expectedGoal: Reduction in pain sensationOutcome: Progressing as expected Problem: Discharge PlanningGoal: Adequate for dischargeOutcome: Progressing as expectedGoal: Effective communicationOutcome: Progressing as expected 96665-1Aacb of care epugNJ0498-50-74S60:17:08Plan of care noteTXT1.2.840.894049.1.13.104.2. 7.2.991198|0732587055MMVvzossoih for patient bsqv54511-1EassDWLAIHEJTA[address]TXTX[address] 386YCDDMYJTSJWPWSRZIEKSYC6002-54- 02T05:17:081.2.840.521744.1.72.3. 15|1.2.840.231881.1.13.104.2.7.2. 727879_[id number] [facility] 2023-01-12 01:43:06 6292-25-11W33:43:06F ormatting of this note might be different from the original.Report to lisy CURRIE on 9C. Pt awaiting transport 01354-4Hnvwbuszu department ZkndVM1969-30-77V61:43:18[facility] NoteTXT1.2.840.322062.1.13.104.2. 7.2.711731|8942615877KQGonjwxxgi for patient fkzb21640-9ElunRN951222100Ooiyg McDougle RN[address]TXTX[address] 522DETZEKRRTUBQGLILRIUTBR2971-80- 02T01:43:181.2.840.186957.1.72.3. 15|1.2.840.724710.1.13.104.2.7.2. [id number] Melvin Villegas RN [facility] 2023-01-12 01:10:30 7438-50-51L02:10:30F ormatting of this note might be different from the original.Attempted report, nurse unavailable, left callback number [id number] department EzsaLI7403-97-17S14:10:42[facility] NoteTXT1.2.840.402964.1.13.104.2. 7.2.955124|[id number] for patient ylbx11749-8SqgvYYCPBNPQMD[address] So[id number] 729EAZUTXRLGCZUPOSJQQUDJJ4918-18- 02T01:10:421.2.840.129273.1.72.3. 15|1.2.840.970529.1.13.104.2.7.2. [id number] [facility] 2023-01-12 00:24:49 6589-03-24L49:24:49F ormatting of this note might be different from the original.Surgery at bedside 65880-6Kkrkdfuaw department LfojXE1835-74-81U85:24:56[facility] NoteTXT1.2.840.004974.1.13.104.2. 7.2.629320|[id number] for patient ouyg12666-0RjbuMMYMSBTXPR[address]Gal[address]onGal[place]on[place] 907UKMSAUQMKAIFKNVDTJJJEQ8018-61- 02T00:24:561.2.840.630497.1.72.3. 15|1.2.840.506784.1.13.104.2.7.2. [id number] [facility] 2023-01-11 23:08:11 4014-88-22Y25:08:11F ormatting of this note might be different from the original. made aware of pt increased pain and nausea 95058-2Kytsdlehw department RvhdZN3556-65-04R38:08:21[facility] NoteTXT1.2.840.454969.1.13.104.2. 7.2.230430|[id number] for patient agkj56034-4FsdeCHJOUORUIK[address]TXTX[address] 442CEXVYQAXNJPVSPIMUYZXFE1965-66- 01T23:08:211.2.840.458551.1.72.3. 15|1.2.840.239564.1.13.104.2.7.2. [id number] [facility] 2023-01-11 22:34:38 8852-38-69O97:34:38F ormatting of this note might be different from the original.Pt return from CT, warm blanket given 14147-8Lrcijyllk department AibeCF0835-86-30J83:34:49[facility] NoteTXT1.2.840.411054.1.13.104.2. 7.2.504901|[id number] for patient qqqi50322-0IwduADDADOBZMK[address]TXTX[address] 318XBRCZSOMPEORJSCVWRODGS3538-29- 01T22:34:491.2.840.657860.1.72.3. 15|1.2.840.251132.1.13.104.2.7.2. [id number] [facility] 2023-01-11 22:18:01 2977-28-54J24:18:01F ormatting of this note might be different from the original.Pt to CT scan 40908-1Vjdubsura department HzeqJY4245-74-40T31:18:08[facility] NoteTXT1.2.840.454782.1.13.104.2. 7.2.233775|[id number] for patient mxjk02365-0TekvYXIRAPVKFY[address]TXTX[address] 357TGUIQVWZWTGVIENLFKEKAQ9575-82- 01T22:18:081.2.840.963261.1.72.3. 15|1.2.840.109009.1.13.104.2.7.2. [id number] [facility] 2023-01-11 21:30:08 9398-33-27H51:30:08F ormatting of this note might be different [...] liver. Denies vomiting, denies blood in stool. 30268-7Toeovyeqr department BbveNR2872-14-08D42:32:39[facility] NoteTXT1.2.840.454326.1.13.104.2. 7.2.998013|[id number] for patient fkgn11347-4YrahCTJAZHGWYJ[address]TXTX[address] 684XOGHVUAXIILAQONMYMXRST4848-19- 01T21:32:391.2.840.010564.1.72.3. 15|1.2.840.044424.1.13.104.2.7.2. [id number] [facility] 2023-01-11 21:03:38 7925-84-39I00:03:38F ormatting of this note might be different from the original.Nikko Dyson is a 27 year old female here today c/o abdominal pain x 2 days. Pt denies N/V but reports diarrhea. Pt reports "9/10" pain at this time. Pt reports pain travels down right side abdomen. Pt is A&Ox4, NAD Noted. RR even/unlabored. 80575-6Ruaiwjrap department Triage wdbyOI4199-52-35X81:05:23Emergen y department Triage noteTXT1.2.840.916703.1.13.104.2. 7.2.375657|[id number] for patient upmv81258-6Aaxtmggpq department [address] 239MPGSMOTVLMVUPWOWXSTLFU4160-97- 01T21:05:231.2.840.034068.1.72.3. 15|1.2.840.231552.1.13.104.2.7.2. 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 Due to the worsening discomfort patient has, for further evaluation at [facility]. Patient states that during her cholecystectomy [...] when she sits up. Patient has discontinued [place] and anxiety medication due to concern for her liver. 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 METABOLIC PANEL (90810) TOTAL BETA HCG ASSAY EXTRA TUBE ORANGE EXTRA TUBE LAV EKG:If EKG completed, see Procedure Note. Orders and Treatments:Orders Placed This Encounter Procedures CT ABDOMEN PELVIS W CONTRAST POCT TEST URINALYSIS LIPASE COMP. METABOLIC PANEL (00112) TOTAL BHCG (QUANTITATIVE) Orders Placed This Encounter [...] mouth every 6 (six) hours as needed. PJOMCAGHZI-QLTTTCCBRSHIR-EJZS (FIORICET) 50-300-40 MG PER CAPSULE Take 1 [...] in the Gallbladder fossa, post-recent cholecystectomy in [place].General surgery was consulted and admitted the patient for further workup and management. 38634-9Ezigtctao Emergency department [id number], Jeremy1.2.840.465198.1.13.104.2.7 .2.628155HpiytpQvyrstMX5625-15-78 T07:17:19Physician Emergency department NoteTXT1.2.840.505195.1.13.104.2. 7.2.880431|[id number] for patient xigy46989-5Ocmjpagrs department NoteLN[address]TXTX[address] 134HTEJLLRTALVKOPTXBZSSRE0153-35- 02T07:17:191.2.840.263986.1.72.3. 15|1.2.840.453265.1.13.104.2.7.2. [id number] [facility] 2022-12-03 08:57:03 6210-41-47E34:57:03F ormatting of this note might be different from the original.Patient has an appointment 12/12/22.Blayne Silva RN 12/03/2022 8:57 AM 47197-9Qssggudfw encounter JcdnXM9667-76-59W16:57:18Telephon e encounter NoteTXT1.2.840.610295.1.13.104.2. 7.2.234541|[id number] for patient [id number] Collins RNUT[address]TXTX[address] 130FMFCXWVTULIDILCDKXLFTW0964-66- 24T08:57:181.2.840.662583.1.72.3. 15|1.2.840.424998.1.13.104.2.7.2. [id number] Blayne Silva RN [facility]
[2023-10-26] MEDS ORDERED: NA CHLORIDE 0.9% 1,000 ML ONE (08:16)
[2023-10-26] MEDS ORDERED: MORPHINE 2 MG/ML SYR ONE (08:16)
[2023-10-26 08:59] LABS: Absolute Eosinophils 0.2 K/uL (0-0.5); Absolute Lymphocytes (CBC) 1.4 K/uL (0.7-4.9); Absolute Monocytes 0.3 K/uL (0.1-1.3); Basophils % 0.6 % (0-1.3); Eosinophils % 2.6 % (0-4.4); Hematocrit 39.2 % (36.0-45.0); Hemoglobin 13.4 g/dL (12.0-15.0); Lymphocytes % 19.7 % (15.3-44.8); MCH 29.6 pg (27.0-35.0); MCHC 34.2 g/dL (32.0-36.0); MCV 86.6 fL (80-100); Monocytes % 4.5 % (3.3-12.3); Neutrophils % 72.6 % (41.7-73.7); Nucleated Red Blood Cells % 0.1 % (0-0); Platelets 356 thou/uL (152-406); RBC Red Blood Cell Count 4.52 M/uL (3.86-4.86); Red Cell Distribution Width 13.5 % (12.1-15.2)
[2023-10-26 09:17] LABS: Specific Gravity 1.012 (1.005-1.030); Sqamous Epithelial <5 /HPF (None Seen); Urine Bacteria None Seen /HPF (<20); Urine Bilirubin NEGATIVE (Negative); Urine Blood Trace (Negative); Urine Clarity Turbid (Clear); Urine Color Colorless (Yellow); Urine Culture Reflex Order NOT NEEDED; Urine Glucose NEGATIVE (Negative); Urine Ketones NEGATIVE (Negative); Urine Micro Reflex YN NO BILL MICROSCOPIC; Urine Mucus Slight /HPF (None Seen); Urine Nitrite NEGATIVE (Negative); Urine Protein NEGATIVE (Negative); Urine RBC <5 /HPF (None Seen); Urine Urobilinogen Normal (Normal); Urine WBC None Seen /HPF (<5); Urine pH 6.5 (5.0-7.0)
[2023-10-26 09:17] LABS: Albumin 4.2 g/dL (3.4-5.0); Albumin/Globulin Ratio 1.1 (1.1-1.8); Anion Gap 8.9 mEq/L (5.0-15.0); Bilirubin Total 0.4 mg/dL (0.2-1.0); Globulin 3.8 g/dL (2.3-3.5); Potassium 3.9 mEq/L (3.5-5.1)
[2023-10-26 09:20] LABS: Specific Gravity 1.012 (1.005-1.030)
--- NOTE | 2023-10-26 09:24 | ER ---
Nurse's Notes [facility] Name: Natanael Dyson Age: 28 yrs Sex: Female : 1995 Arrival Date: 10/26/2023 Time: 07:22 Bed 6 Private MD: Diagnosis: Upper abdominal pain, unspecified Presentation: 10/25 08:33 Coronavirus screen: Vaccine status: Patient reports receiving the 1st dose of the Covid ph vaccine. Ebola Screen: No symptoms or risks identified at this time. Initial Sepsis Screen: Does the patient meet any 2 criteria? No. Patient's initial sepsis screen is negative. Does the patient have a suspected source of infection? No. Patient's initial sepsis screen is negative. Risk Assessment: Do you want to hurt yourself or someone else? Patient reports no desire to harm self or others. Onset of symptoms was October 26, 2023. 08:33 Acuity: THIERNO 3 ph 08:33 Method Of Arrival: Ambulatory ph 08:33 Chief complaint: Patient states: Abdominal pain. N/V. ph Historical: - Allergies: 08:33 Compazine; ph 08:33 NSAIDS NON STEROIDAL ANTI INFLAMMATORY DRUG; ph 08:33 Reglan; ph 08:33 Toradol; ph 08:33 Haldol; ph - PMHx: 08:33 Anxiety; breast cancer; depressive disorder; Kidney stone; nephritis; ph - PSHx: 08:33 Cholecystectomy; Ligation of fallopian tube; ph - Immunization history:: Adult Immunizations unknown. - Infectious Disease History:: Denies. - Social history:: Smoking status: unknown. Screenin:34 [facility] ED Fall Risk Assessment (Adult) History of falling in the last 3 months, ph including since admission No falls in past 3 months (0 pts) Confusion or Disorientation No (0 pts) Intoxicated or Sedated No (0 pts) Impaired Gait No (0 pts) Mobility Assist Device Used No (0 pt) Altered Elimination No (0 pt) Score/Fall Risk Level 0 - 2 = Low Risk Oriented to surroundings, Maintained a safe environment, Hourly rounding (assess needs \\T\\ fall precautionary measures) done. Abuse screen: Denies threats or abuse. Denies injuries from another. Nutritional screening: No deficits noted. Tuberculosis screening: No symptoms or risk factors identified. Assessment: 08:30 General: Appears in no apparent distress. Behavior is calm, cooperative. Pain: ph Complains of pain in abdomen. Neuro: Level of Consciousness is awake, alert, obeys commands, Oriented to person, place, time, situation. Cardiovascular: Capillary refill < 3 seconds in bilateral fingers Patient's skin is warm and dry. Respiratory: Airway is patent Respiratory effort is even, unlabored, Respiratory pattern is regular, symmetrical. GI: Abdomen is non-distended, Reports lower abdominal pain, upper abdominal pain, nausea, vomiting. 09:29 Reassessment: Patient appears in no apparent distress at this time. Patient and/or ph family updated on plan of care and expected duration. Pain level reassessed. Patient is alert, oriented x 3, equal unlabored respirations, skin warm/dry/pink. Pt states, " That medicine helped my pain but now I'm feeling antsy and I want to go home." ERP notified, pt placed up for d/c. Vital Signs: 08:33 BP 133 / 93; Pulse 103; Resp 18; Pulse Ox 100% on R/A; ph 09:32 BP 132 / 68; Pulse 97; Resp 18; Temp 97.5; Pulse Ox 100% on R/A; ph ED Course: 07:23 Patient arrived in ED. rg4 07:30 Diaz Arizmendi MD is Attending Physician. ec2 08:14 Viktoriya Jaramillo, RN is Primary Nurse. ph 08:34 Triage completed. ph 08:34 Arm band placed on Patient placed in an exam room, on a stretcher. ph 08:34 Patient has correct armband on for positive identification. Bed in low position. Call ph light in reach. Side rails up X 1. Pulse ox on. NIBP on. Door closed. Noise minimized. 08:43 CBC with Diff Sent. ss 08:43 CMP Sent. ss 08:43 Lipase Sent. ss 08:43 Accessed ,peripheral vein via ultrasound, utilizing static ultrasound technique using ss 20G Nexia IV catheter ,sterile technique, per hospital protocol. Clean \\T\\ dry. Dressing intact. Dressing loose. Good blood return. No blood return. 09:24 Luciano Valencia MD is Referral Physician. ec2 09:33 No provider procedures requiring assistance completed. IV discontinued, intact, ph bleeding controlled, No redness/swelling at site. Pressure dressing applied. Administered Medications: 09:10 Drug: NS 0.9% IV 1000 ml IV at 1 bolus Per protocol; 1000 mL bolus Route: IV; Rate: 1 hb bolus; Site: left forearm; 09:35 Follow up: Response: No adverse reaction; IV Status: Completed infusion; IV Intake: ph 800ml 09:10 Drug: Droperidol IVP 2.5 mg IVP once Route: IVP; Site: left forearm; hb 09:34 Follow up: Response: No adverse reaction; Pain is decreased ph 09:10 Drug: morphine IVP or IV 2 mg IVP once over 4 mins Route: IVP; Infused Over: 4 mins; hb Site: left forearm; 09:35 Follow up: Response: No adverse reaction; Pain is decreased; RASS: Alert and Calm (0) ph Medication: 08:34 VIS not applicable for this client. ph Intake: 09:35 IV: 800ml; Total: 800ml. ph Outcome: 09:24 Discharge ordered by . ec2 09:33 Discharged to home ambulatory, ph 09:33 Condition: good 09:33 Discharge instructions given to patient, Instructed on discharge instructions, follow up and referral plans. Demonstrated understanding of instructions, follow-up care, 09:36 Patient left the ED. ph Signatures: Violeta Dubois RN RN Viktoriya Jaramillo RN RN ph Baxter, Heather, RN RN hb Garcia, Rubi 4 Diaz Arizmendi MD MD ec2 Corrections: (The following items were deleted from the chart) 09:35 09:34 Response: No adverse reaction; Pain is decreased ph ph
--- NOTE | 2023-10-26 09:24 | EDPHYS ---
Physician Documentation [facility] Name: Natanael Dyson Age: 28 yrs Sex: Female : 1995 Arrival Date: 10/26/2023 Time: 07:22 Bed 6 Private MD: ED Physician Diaz Arizmendi HPI: 10/25 08:04 This 28 yrs old Female presents to ER via Unassigned with complaints of ec2 Abdominal Pain, Shoulder Pain. 08:04 Patient with history of chronic abdominal pain arrives today for abdominal pain. ec2 History of cholecystectomy. Reports ongoing pain for 3 days. Nausea and vomiting. Also with diarrhea. Historical: - Allergies: 08:33 Compazine; ph 08:33 NSAIDS NON STEROIDAL ANTI INFLAMMATORY DRUG; ph 08:33 Reglan; ph 08:33 Toradol; ph 08:33 Haldol; ph - PMHx: 08:33 Anxiety; breast cancer; depressive disorder; Kidney stone; nephritis; ph - PSHx: 08:33 Cholecystectomy; Ligation of fallopian tube; ph - Immunization history:: Adult Immunizations unknown. - Infectious Disease History:: Denies. - Social history:: Smoking status: unknown. ROS: 08:04 Constitutional: as per hpi ec2 Exam: 08:04 Constitutional: GEN: NAD Head: atraumatic Eyes: EOMI Ears: External ears are ec2 normal. CV: Tachycardia LUNGS: no respiratory distress ABD: Tender in the epigastrium. SKIN: no evidence of rashes MSK: no evidence of trauma NEURO: moves all extremities equally Vital Signs: 08:33 BP 133 / 93; Pulse 103; Resp 18; Pulse Ox 100% on R/A; ph 09:32 BP 132 / 68; Pulse 97; Resp 18; Temp 97.5; Pulse Ox 100% on R/A; ph MDM: 07:31 Patient medically screened. ec2 08:04 Data reviewed: vital signs. ED course: Patient with history of abdominal pain arrives ec2 today for upper abdominal pain. Examination remarkable for abdominal findings and cardiac findings as above. Will obtain lab work, urine studies, CT imaging. Differential diagnosis includes gastritis, pancreatitis, chronic abdominal pain. 09:21 ED course: Metabolic profile reassuring, urine is noninfectious, negative for ec2 . CBC reassuring as well. Pending CT imaging. . 09:23 ED course: Patient reports resolution of abdominal pain, does not want undergo further ec2 testing, will discharge home. . 11:00 ED course: MDM: Differential diagnosis as documented above in ED course; All lab tests ec2 ordered and reviewed as documented above; Parenteral controlled substances: Yes; External records reviewed: Previous ED visit and associated lab work; . 10/25 07:43 Order name: CBC with Diff; Complete Time: 09:20 ec2 10/25 07:43 Order name: CMP; Complete Time: 09:20 ec2 10/25 07:43 Order name: Lipase; Complete Time: 09:20 ec2 10/25 07:49 Order name: UAM; Complete Time: 09:20 ec2 10/25 07:49 Order name: Test, Urine; Complete Time: 09:20 ec2 10/25 07:43 Order name: IV Saline Lock; Complete Time: 08:43 ec2 10/25 07:43 Order name: Labs collected and sent; Complete Time: 08:48 ec2 Administered Medications: 09:10 Drug: NS 0.9% IV 1000 ml IV at 1 bolus Per protocol; 1000 mL bolus Route: IV; Rate: 1 hb bolus; Site: left forearm; 09:35 Follow up: Response: No adverse reaction; IV Status: Completed infusion; IV Intake: ph 800ml 09:10 Drug: Droperidol IVP 2.5 mg IVP once Route: IVP; Site: left forearm; hb 09:34 Follow up: Response: No adverse reaction; Pain is decreased ph 09:10 Drug: morphine IVP or IV 2 mg IVP once over 4 mins Route: IVP; Infused Over: 4 mins; hb Site: left forearm; 09:35 Follow up: Response: No adverse reaction; Pain is decreased; RASS: Alert and Calm (0) ph Disposition Summary: 10/26/23 09:24 Discharge Ordered Notes: Location: Home ec2 Condition: Stable ec2 Diagnosis - Upper abdominal pain, unspecified ec2 Followup: ec2 - With: Private Physician - When: - Reason: Re-evaluation by your physician Followup: ec2 - With: Luciano Valencia MD - When: - Reason: Recheck today's complaints Discharge Instructions: - Discharge Summary Sheet ec2 - Abdominal Pain, Adult ec2 Forms: - Medication Reconciliation Form ec2 - Antibiotic Education ec2 - Prescription Opioid Use ec2 - Patient Portal Instructions ec2 - Leadership Thank You Letter ec2 Signatures: Dispatcher [employer] Viktoriya Simpson, RN RN ph Judi Rich RN RN Diaz Arizmendi MD MD ec2 Corrections: (The following items were deleted from the chart) 07:44 07:44 CBC+H.LAB.BRZ ordered. EDMS EDMS 07:44 07:44 COMPREHENSIVE METABOLIC PANEL+C.LAB.BRZ ordered. EDMS EDMS 07:44 07:44 LIPASE+C.LAB.BRZ ordered. EDMS EDMS
[2023-10-26 09:42] VITALS: BP 132/68; TEMP 97.5; O2SAT 100
== END 2023-10-26 09:36 | disposition home or self-care (01) ==
LOC: ER 07:22
DX: R10.10 Upper abdominal pain, unspecified (principal)
CPT/HCPCS: 85025; 81001; 36415; 81025; 83690; 80053; 96375; 96374; 99284; J2270; J7030

== ENCOUNTER 2023-11-12 08:01 | Emergency (ER) | payer OTHER ==
[2023-11-12] MEDS ORDERED: ONDANSETRON 4 MG/2 ML VIAL ONE (08:12)
[2023-11-12] MEDS ORDERED: NA CHLORIDE 0.9% 1,000 ML ONE (08:13)
[2023-11-12] MEDS ORDERED: HYDROMORPHONE HCL 1 MG/ML INJ ONE (08:13)
--- OUTSIDE RECORDS SUMMARY | 2023-11-12 08:19 | XMS REPORT | Continuity of Care Document ---
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 Push, ONCE, 1 dose, On Sat09/05/22 at 1030, Routine [facility] NaCl 0.9% (NS) bolus infusion 1,000 mL 09-05 15:00: 00 09-05 17:12 :00 No 1000mL at 999 mL/hr, 1,000 mL, IV Infusion, ONCE, 1 dose, On Sat09/05/22 at 1000, STAT [facility] methylpredn isolone sod succ (SOLU-MEDRO L) injection 125 mg 09-05 14:45: 00 09-05 14:35 :00 No 125mg 125 mg, Intravenou s, ONCE, 1 dose, On Sat09/05/22 at 0945, 2 mL [facility] butalbital- acetaminoph en-caff (ESGIC) 50-325-40 mg tablet 1 tablet 09-05 14:00: 00 09-05 14:34 :00 No 1{tbl} 1 tablet, Oral, ONCE, 1 dose, On Sat09/05/22 at 0900, [place] [facility] diphenhydrA MINE (BENADRYL) injection 25 mg 09-05 14:00: 00 09-05 14:39 :00 No 25mg 25 mg, Slow IV Push, ONCE, 1 dose, On Sat09/05/22 at 0900, STAT [facility] proMETHazin e (PHENERGAN) 12.5 mg in NaCl 0.9% (NS) 50 mL IV piggyback 09-05 14:00: 00 09-05 14:40 :00 No 12.5mg 12.5 mg, IV Piggyback, ONCE, 1 dose, On Sat09/05/22 at 0900, [place] [facility] carvediloL 25 mg tablet 09-05 00:00: 00 Yes [id number] 25mg Take 1 tablet by mouth in the morning and 1 tablet in the evening. Take with meals. [facility] losartan 50 mg tablet 09-05 00:00: 00 Yes [id number] 50mg Take 1 tablet by mouth in the morning and 1 tablet in the evening. [facility] ibuprofen 800 mg tablet 08-05 00:00: 00 Yes 800mg Take 1 tablet by mouth 3 (three) times daily as needed. [facility] cyclobenzap rine 10 mg tablet 08-05 00:00: 00 Yes 10mg Take 1 tablet by mouth 3 (three) times daily as needed. [facility] maalox:diph enhydrAMINE :lidocaine 2 % viscous 1:1:1 ([facility]) oral suspension 15 mL 08-01 00:45: 00 08-01 00:44 :00 No 15mL 15 mL, Oral, ONCE, 1 dose, On Sat07/31/22 at 1945, [place] [facility] ketorolac (TORADOL) injection 15 mg 08-01 00:15: 00 08-01 00:44 :00 No 15mg 15 mg, Slow IV Push, ONCE, 1 dose, On Sat07/31/22 at 1914, Routine [facility] ondansetron (ZOFRAN (PF)) injection 4 mg 08-01 00:15: 00 08-01 00:46 :00 No 4mg 4 mg, Slow IV Push, ONCE, 1 dose, On Sat07/31/22 at 1914, [place] [facility] famotidine (PEPCID (PF)) injection 20 mg 08-01 00:15: 00 08-01 00:46 :00 No 20mg 20 mg, Slow IV Push, ONCE, 1 dose, On Sat07/31/22 at 1914, [place] [facility] ondansetron 4 mg disintegrat ing tablet 07-31 00:00: 00 05-19 00:00 :00 No [id number] 4mg Take 1 tablet by mouth every 8 (eight) hours as needed for Nausea and Vomiting (N/V). [facility] sucralfate 1 gram tablet 07-31 00:00: 00 05-19 00:00 :00 No [id number] 1g Take 1 tablet by mouth before meals and at bedtime. [facility] pantoprazol e 40 mg EC tablet 07-31 00:00: 00 08-15 04:59 :00 No [id number] 40mg Take 1 tablet by mouth in the morning for 14 days. [facility] tamsulosin 0.4 mg 24 hr capsule 07-25 00:00: 00 Yes .4mg Take 1 capsule by mouth in the morning. [facility] traMADoL 50 mg tablet 07-23 00:00: 00 Yes 50mg Take 1 tablet by mouth. [facility] ibuprofen 600 mg tablet 07-15 00:00: 00 07-31 00:00 :00 No [id number] 600mg Take 1 tablet by mouth every 6 (six) hours as needed for Pain (scale 4-6). [facility] citalopram 10 mg tablet 06-29 00:00: 00 Yes 10mg Take 1 tablet by mouth in the morning. [facility] QUEtiapine 400 mg tablet 06-29 00:00: 00 Yes [facility] gabapentin 600 mg tablet 06-29 00:00: 00 Yes [facility] methylPREDN ISolone (MEDROL, ANABELA,) 4 mg tablets 06-23 00:00: 00 Yes [id number] Take by mouth SEE-INSTRU CTIONS. follow package directions [facility] bromphenira mine-pseudo ephedrine-D M (BROMFED DM) 2-30-10 mg/5 mL syrup 06-23 00:00: 00 07-04 05:59 :00 No [id number] 5mL Take 5 mL by mouth 4 (four) times daily as needed for Cold symptoms for up to 10 days. [facility] methocarbam oL 750 mg tablet 06-23 00:00: 00 07-01 05:59 :00 No [id number] 750mg Take 1 tablet by mouth 4 (four) times daily for 7 days. [facility] magnesium sulfate in water 2 gram/50 mL (4 %) infusion 2 g 2021-05 21:00: 00 05-05 21:15 :00 No 2g 2 g, IV Piggyback, Administer over 15 Minutes, ONCE, 1 dose, On 05/05/22 at 1500, [place] [facility] butalbital- acetaminoph en-caff (ESGIC) 50-325-40 mg tablet 1 tablet 2021-05 20:15: 00 05-05 20:56 :00 No 1{tbl} 1 tablet, Oral, ONCE, 1 dose, On 05/05/22 at 1415, [place] [facility] dexamethaso ne sod phos PF injection 10 mg 2021-05 20:15: 00 05-05 21:00 :00 No 10mg 10 mg, Slow IV Push, ONCE, 1 dose, On 05/05/22 at 1415, 1 mL [facility] NaCl 0.9% (NS) bolus infusion 1,000 mL 2021-05 20:00: 00 05-05 21:45 :00 No 1000mL at 999 mL/hr, 1,000 mL, IV Infusion, ONCE, 1 dose, On 05/05/22 at 1400, [place] [facility] diphenhydrA MINE (BENADRYL) injection 25 mg 2021-05 19:15: 00 05-05 19:42 :00 No 25mg 25 mg, Slow IV Push, ONCE, 1 dose, On 05/05/22 at 1315, STAT [facility] ondansetron (ZOFRAN (PF)) injection 4 mg 2021-05 19:15: 00 05-05 19:45 :00 No 4mg 4 mg, Slow IV Push, ONCE, 1 dose, On 05/05/22 at 1315, [place] [facility] ketorolac (TORADOL) injection 30 mg 2021-05 19:15: 00 05-05 19:44 :00 No 30mg 30 mg, Slow IV Push, ONCE, 1 dose, On 05/05/22 at 1315, Routine [facility] butalbital- acetaminoph en-caff 50-325-40 mg tablet 2021-05 00:00: 00 Yes [id number] 1{tbl} Take 1 tablet by mouth every 4 (four) hours as needed for Pain (scale 7-10). [facility] HYDROcodone -acetaminop hen (NORCO) 10-325 mg tablet 1 tablet 2021-05 16:30: 00 04-26 15:23 :00 No 1{tbl} 1 tablet, Oral, ONCE, 1 dose, On Kathie 04/26/22 at 1030, Routine [facility] diphenhydrA MINE (BENADRYL) tablet 25 mg 2021-05 15:45: 00 04-26 15:53 :00 No 25mg 25 mg, Oral, ONCE, 1 dose, On Kathie 04/26/22 at 0945, [place] [facility] NaCl 0.9% (NS) bolus infusion 1,000 mL 2021-05 15:45: 00 04-26 15:55 :00 No 1000mL at 999 mL/hr, 1,000 mL, IV Piggyback, ONCE, 1 dose, On Kathie 04/26/22 at 0945, STAT [facility] ondansetron (ZOFRAN (PF)) injection 4 mg 2021-05 14:45: 00 04-26 14:52 :00 No 4mg 4 mg, Slow IV Push, ONCE, 1 dose, On Kathie 04/26/22 at 0845, Routine [facility] cephALEXin (KEFLEX) 500 mg capsule 2021-05 00:00: 00 05-04 05:59 :00 No [id number] 500mg Take 1 capsule by mouth in the morning and 1 capsule at noon and 1 capsule in the evening. Do all this for 7 days. [facility] ondansetron (ZOFRAN) 4 mg tablet 2021-05 00:00: 00 07-31 00:00 :00 No 4mg Take 1 tablet by mouth every 8 (eight) hours as needed for Nausea and Vomiting (N/V). [facility] galcanezuma b-gnlm prefilled (EMGALITY) subcutaneou s injection 2021-05 00:00: 00 Yes [id number] 120mg inject 120 mg under the skin once every month. [facility] methocarbam oL (ROBAXIN) injection 1,000 mg 2021-05 04:00: 00 Yes 1000mg 1,000 mg, Intravenou s, Q8H, First dose on 04/07/22 at 2200, Until Discontinu ed, Routine [facility] ketorolac (TORADOL) injection 30 mg 2021-05 00:45: 00 04-07 23:45 :00 No 30mg 30 mg, Slow IV Push, ONCE, 1 dose, On 04/07/22 at 1845, Routine [facility] HYDROcodone -acetaminop hen (NORCO) 10-325 mg tablet 1 tablet 2021-05 00:30: 00 04-07 23:45 :00 No 1{tbl} 1 tablet, Oral, ONCE NOW, 1 dose, On 04/07/22 at 1830, Routine [facility] diphenhydrA MINE (BENADRYL) injection 12.5 mg 2021-05 23:45: 00 04-07 23:46 :00 No 12.5mg 12.5 mg, Slow IV Push, ONCE, 1 dose, On 04/07/22 at 1745, STAT [facility] butorphanol (STADOL) injection 1 mg 2021-05 23:15: 00 04-07 22:48 :00 No 1mg 1 mg, IV Push, ONCE, 1 dose, On 04/07/22 at 1715, Routine [facility] NaCl 0.9% (NS) bolus infusion 1,000 mL 2021-05 23:15: 00 04-07 23:49 :00 No 1000mL at 999 mL/hr, 1,000 mL, IV Infusion, ONCE, 1 dose, On 04/07/22 at 1715, [place] [facility] ketorolac (TORADOL) injection 15 mg 2021-05 19:30: 00 03-24 18:45 :00 No 15mg 15 mg, Slow IV Push, ONCE, 1 dose, On 03/24/22 at 1330, Routine [facility] butorphanol (STADOL) injection 1 mg 2021-05 18:00: 00 03-24 17:26 :00 No 1mg 1 mg, Intravenou s, ONCE, 1 dose, On 03/24/22 at 1200, Routine [facility] proMETHazin e (PHENERGAN) 25 mg in NaCl 0.9% (NS) 50 mL IV piggyback 2021-05 18:00: 00 03-24 18:13 :00 No 25mg 25 mg, IV Piggyback, ONCE, 1 dose, On 03/24/22 at 1200, [place] [facility] butorphanol (STADOL) injection 1 mg 2021-05 17:15: 00 03-24 16:26 :00 No 1mg 1 mg, IV Push, ONCE, 1 dose, On 03/24/22 at 1115, Routine [facility] diphenhydrA MINE (BENADRYL) injection 25 mg 2021-05 15:30: 00 03-24 15:40 :00 No 25mg 25 mg, Slow IV Push, ONCE, 1 dose, On 03/24/22 at 0930, STAT [facility] ondansetron (ZOFRAN (PF)) injection 4 mg 2021-05 15:30: 00 03-24 14:25 :00 No 4mg 4 mg, Slow IV Push, ONCE, 1 dose, On 03/24/22 at 0930, [place] [facility] NaCl 0.9% (NS) IV infusion 1,000 mL 2021-05 15:15: 00 03-24 17:25 :00 No 1000mL at 999 mL/hr, Intravenou s, ONCE, 1 dose, On 03/24/22 at 0915, [facility] magnesium sulfate in water 2 gram/50 mL (4 %) infusion 2 g 2021-05 15:00: 00 03-24 14:47 :00 No 2g 2 g, IV Piggyback, Administer over 20 Minutes, ONCE, 1 dose, On 03/24/22 at 0900, Routine [facility] dexamethaso ne sod phos PF injection 6 mg 2021-05 14:15: 00 03-24 14:14 :00 No 6mg 6 mg, Slow IV Push, ONCE, 1 dose, On 03/24/22 at 0815, 1 mL [facility] diphenhydrA MINE (BENADRYL) injection 25 mg 2021-05 14:15: 00 03-24 14:16 :00 No 25mg 25 mg, Slow IV Push, ONCE, 1 dose, On 03/24/22 at 0815, STAT [facility] ALBUTEROL INHALE 2021-05 07:58: 13 03-24 00:00 :00 No [facility] rizatriptan 10 mg tablet 2021-05 00:00: 00 Yes [id number] 10mg Take 1 tablet by mouth as needed for Migraine. May repeat in 2 hours if needed [facility] Butalbital- Acetaminoph en-Caff (FIORICET) 50-300-40 mg per capsule 2021-05 00:00: 00 Yes [id number] 1{capsu le} Take 1 capsule by mouth every 6 (six) hours as needed for Other (headache) . [facility] magnesium oxide 200 mg magnesium Tab 2021-05 00:00: 00 04-07 00:00 :00 No [id number] 200mg Take 200 mg by mouth 2 (two) times daily. Indication s: headache [facility] SUMAtriptan 50 mg tablet 2021-05 00:00: 00 Yes 50mg Take 1 tablet by mouth as needed for Migraine. Take one tablet at onset of migraine, may take another tablet 2 hours after initial dose if no relief with first dose. DO NOT EXCEED 100mg in a 24 hour period. [facility] FENTanyl PF (SUBLIMAZE (PF)) injection 50 mcg 2021-05 15:30: 00 03-15 14:56 :00 No 50ug 50 mcg, Slow IV Push, ONCE, 1 dose, On Kathie 03/15/22 at 1030, Routine [facility] proMETHazin e (PHENERGAN) tablet 25 mg 2021-05 14:45: 00 03-15 14:55 :00 No 25mg 25 mg, Oral, ONCE, 1 dose, On Kathie 03/15/22 at 0945, [place] [facility] FENTanyl PF (SUBLIMAZE (PF)) injection 50 mcg 2021-05 14:45: 00 03-15 13:58 :00 No 50ug 50 mcg, Slow IV Push, ONCE, 1 dose, On [facility] 03/15/22 at 0945, Routine [facility] ondansetron (ZOFRAN (PF)) injection 4 mg 2021-05 14:00: 00 03-15 13:58 :00 No 4mg 4 mg, Slow IV Push, ONCE, 1 dose, On [facility] 03/15/22 at 0900, [place] [facility] carvediloL 25 mg tablet 2021-05 00:00: 00 09-05 00:00 :00 No [id number] 25mg Take 1 tablet by mouth in the morning and 1 tablet in the evening. Take with meals. [facility] ondansetron 4 mg disintegrat ing tablet 2021-05 00:00: 00 04-07 00:00 :00 No [id number] 4mg Take 1 tablet by mouth every 8 (eight) hours as needed for Nausea and Vomiting (N/V). [facility] ketorolac 10 mg tablet 2021-05 00:00: 00 04-07 00:00 :00 No [id number] 10mg Take 1 tablet by mouth every 6 (six) hours as needed for Pain (scale 7-10). [facility] proMETHazin e 25 mg tablet 2021-05 00:00: 00 04-07 00:00 :00 No [id number] 25mg Take 1 tablet by mouth every 6 (six) hours as needed for N/V unresponsi ve to Ondansetro n. [facility] cephALEXin 500 mg capsule 2021-05 00:00: 00 03-19 05:59 :00 No [id number] 500mg Take 1 capsule by mouth 4 (four) times daily for 3 days. [facility] predniSONE 20 mg tablet 2021-05 0-31 00:00: 00 03-15 04:59 :00 No [id number] 20mg Take 1 tablet by mouth in the morning for 2 days. [facility] methocarbam oL (ROBAXIN) tablet 500 mg 2021-05 16:45: 00 03-11 17:08 :00 No 500mg 500 mg, Oral, ONCE, 1 dose, On 03/11/22 at 1200, [place] [facility] dexamethaso ne sod phos PF injection 10 mg 2021-05 16:00: 00 03-11 16:00 :00 No 10mg 10 mg, Slow IV Push, ONCE, 1 dose, On 03/11/22 at 1100, 1 mL [facility] diphenhydrA MINE (BENADRYL) injection 25 mg 2021-05 15:46: 00 03-11 16:00 :00 No 25mg 25 mg, Slow IV Push, ONCE, 1 dose, On Sat03/11/22 at 1100, STAT [facility] NaCl 0.9% (NS) IV infusion 1,000 mL 2021-05 15:45: 00 03-11 16:04 :00 No 1000mL at 999 mL/hr, Intravenou s, ONCE, 1 dose, On Sat03/11/22 at 1045, Routine [facility] butalbital- acetaminoph en-caff (ESGIC) 50-325-40 mg tablet 1 tablet 2021-05 15:00: 00 03-11 15:05 :00 No 1{tbl} 1 tablet, Oral, ONCE, 1 dose, On 03/11/22 at 1015, [place] [facility] ketorolac (TORADOL) injection 15 mg 2021-05 14:45: 00 03-11 15:05 :00 No 15mg 15 mg, Slow IV Push, ONCE, 1 dose, On 03/11/22 at 0945, [place] [facility] proMETHazin e (PHENERGAN) 12.5 mg in NaCl 0.9% (NS) 50 mL IV piggyback 2021-05 14:45: 00 03-11 15:04 :00 No 12.5mg 12.5 mg, IV Piggyback, ONCE, 1 dose, On 03/11/22 at 0945, [place] [facility] proMETHazin e 25 mg tablet 2021-05 00:00: 00 07-31 00:00 :00 No [id number] 25mg Take 1 tablet by mouth every 6 (six) hours as needed for Nausea and Vomiting (N/V). [facility] methocarbam oL 500 mg tablet 2021-05 00:00: 00 04-07 00:00 :00 No [id number] 500mg Take 1 tablet by mouth 3 (three) times daily as needed for Pain (scale 7-10). [facility] topiramate 25 mg tablet 2021-05 00:00: 00 Yes [id number] 100mg Take 4 tablets by mouth in the morning. [facility] diphenhydrA MINE 25 mg capsule 2021-05 09:39: 59 02-27 00:00 :00 No 25mg Take 25 mg by mouth every 6 (six) hours as needed for Allergies. [facility] citalopram hydrobromid e (CITALOPRAM ORAL) 2021-05 09:39: 49 02-27 00:00 :00 No Take by mouth. [facility] carbamazepi ne (TEGRETOL ORAL) 2021-05 09:39: 28 02-27 00:00 :00 No Take by mouth. [facility] albuterol 90 mcg/actuati on inhaler 2021-05 00:00: 00 Yes [id number] 2{puff} Inhale 2 Puffs every 6 (six) hours as needed for Wheezing or Shortness of Breath. [facility] SUMAtriptan 50 mg tablet 2021-05 00:00: 00 03-21 00:00 :00 No 50mg Take 50 mg by mouth as needed for Migraine. Take one tablet at onset of migraine, may take another tablet 2 hours after initial dose if no relief with first dose. DO NOT EXCEED 100mg in a 24 hour period. [facility] benzonatate 200 mg capsule 2021-05 0-18 00:00: 00 03-07 04:59 :00 No [id number] 200mg Take 1 capsule by mouth 3 (three) times daily as needed for Cough for up to 7 days. [facility] butalbital- acetaminoph en-caff (ESGIC) 50-325-40 mg tablet 1 tablet 2021-05 08:15: 00 02-21 08:09 :00 No 1{tbl} 1 tablet, Oral, ONCE, 1 dose, On Sat02/21/22 at 0315, [facility] butorphanol (STADOL) injection 1 mg 2021-05 08:15: 00 02-21 07:28 :00 No 1mg 1 mg, IV Push, ONCE, 1 dose, On Sat02/21/22 at 0315, Routine [facility] NaCl 0.9% (NS) bolus infusion 1,000 mL 2021-05 07:15: 00 02-21 08:40 :00 No 1000mL at 999 mL/hr, 1,000 mL, IV Infusion, ONCE, 1 dose, On Sat02/21/22 at 0215, [facility] proMETHazin e (PHENERGAN) 12.5 mg in NaCl 0.9% (NS) 50 mL IV piggyback 2021-05 06:30: 00 02-21 06:38 :00 No 12.5mg 12.5 mg, IV Piggyback, ONCE, 1 dose, On Sat02/21/22 at 0130, [place] [facility] dexamethaso ne sod phos PF injection 10 mg 2021-05 06:30: 00 02-21 06:38 :00 No 10mg 10 mg, Slow IV Push, ONCE, 1 dose, On Sat02/21/22 at 0130, 1 mL [facility] ketorolac (TORADOL) injection 15 mg 2021-05 06:30: 00 02-21 06:38 :00 No 15mg 15 mg, Slow IV Push, ONCE, 1 dose, On Sat02/21/22 at 0130, [place] [facility] diphenhydrA MINE (BENADRYL) injection 25 mg 2021-05 06:30: 00 02-21 06:38 :00 No 25mg 25 mg, Slow IV Push, ONCE, 1 dose, On Sat02/21/22 at 0130, STAT [facility] FENTanyl PF (SUBLIMAZE (PF)) injection 50 mcg 2021-05 20:30: 00 02-18 19:44 :00 No 50ug 50 mcg, Slow IV Push, ONCE, 1 dose, On Sat02/18/22 at 1530, Routine [facility] ketorolac (TORADOL) injection 30 mg 2021-05 20:15: 00 02-18 20:09 :00 No 30mg 30 mg, Slow IV Push, ONCE, 1 dose, [facility] 1515[facility] 370-500 mL[facility] injection 60 mL 2021-05 19:30: 00 02-18 17:30 :00 No [id number] 60mL 60 mL, Intravenou s, ONCE, 1 dose, On Sat02/18/22 at 1430, Routine [facility] proMETHazin e (PHENERGAN) 12.5 mg in NaCl 0.9% (NS) 50 mL IV piggyback 2021-05 18:15: 00 02-18 18:19 :00 No 12.5mg 12.5 mg, IV Piggyback, ONCE, 1 dose, [facility]02/18/22 at 1315[facility] F[facility] (SUBLIMAZE (PF)) injection 50 mcg 2021-05 18:00: 00 02-18 17:26 :00 No 50ug 50 mcg, Slow IV Push, ONCE, 1 dose, On Sat02/18/22 at 1300, Routine [facility] ondansetron (ZOFRAN (PF)) injection 4 mg 2021-05 17:15: 00 02-18 17:27 :00 No 4mg 4 mg, Slow IV Push, ONCE, 1 dose, On [place] 02/18/22 at 1215, [facility] morpHINE (2 mg/mL) injection 4 mg 01-18 15:15: 00 01-18 14:49 :00 No 4mg 4 mg, Slow IV Push, ONCE, 1 dose, On Kathie 01/18/22 at 1015, [facility] ondansetron (ZOFRAN (PF)) injection 4 mg 01-18 13:30: 00 01-18 13:33 :00 No 4mg 4 mg, Slow IV Push, ONCE, 1 dose, On Kathie 01/18/22 at 0830, [facility] morpHINE (4 mg/mL) injection 4 mg 01-18 13:30: 00 01-18 13:34 :00 No 4mg 4 mg, Slow IV Push, ONCE, 1 dose, On Kathie 01/18/22 at 0830, [facility] morpHINE (4 mg/mL) injection 4 mg 01-18 12:30: 00 01-18 11:39 :00 No 4mg 4 mg, Slow IV Push, ONCE, 1 dose, On Kathie 01/18/22 at 0730, [facility] famotidine (PEPCID (PF)) injection 20 mg 01-18 11:30: 00 01-18 10:52 :00 No 20mg 20 mg, Slow IV Push, ONCE, 1 dose, On [place] 01/18/22 at 0630, [facility] ondansetron (ZOFRAN (PF)) injection 4 mg 01-18 11:30: 00 01-18 10:52 :00 No 4mg 4 mg, Slow IV Push, ONCE, 1 dose, On Kathie 01/18/22 at 0630, [facility] iodixanoL (VISIPAQUE 270-150 mL) injection 80 mL 01-18 11:21: 00 01-18 11:15 :00 No [id number] 80mL 80 mL, Intravenou s, ONCE, 1 dose, On Kathie 01/18/22 at 0630, Routine [facility] NaCl 0.9% (NS) bolus infusion 1,000 mL 01-18 11:15: 00 01-18 12:59 :00 No 1000mL at 999 mL/hr, 1,000 mL, IV Infusion, ONCE, 1 dose, On Kathie 01/18/22 at 0615, [place] [facility] morpHINE (4 mg/mL) injection 4 mg 01-18 10:45: 00 01-18 10:52 :00 No 4mg 4 mg, Slow IV Push, ONCE, 1 dose, On [place] 01/18/22 at 0545, STAT [facility] traMADoL 50 mg tablet 01-18 00:00: 00 02-27 00:00 :00 No [id number] 50mg Take 1 tablet by mouth every 6 (six) hours as needed for Pain (scale 7-10). Indication s: acute pain [facility] ondansetron 4 mg disintegrat ing tablet 01-18 00:00: 00 02-27 00:00 :00 No [id number] 4mg Take 1 tablet by mouth every 8 (eight) hours as needed for Nausea and Vomiting (N/V). [facility] ibuprofen 600 mg tablet 01-18 00:00: 00 02-27 00:00 :00 No [id number] 600mg Take 1 tablet by mouth every 6 (six) hours as needed for Pain (scale 4-6). [facility] predniSONE 20 mg tablet 01-16 00:00: 00 01-24 04:59 :00 No [id number] 40mg Take 2 tablets by mouth in the morning for 7 days. [facility] morpHINE (4 mg/mL) injection 4 mg 01-15 16:15: 00 01-15 15:28 :00 No 4mg 4 mg, Slow IV Push, ONCE, 1 dose, On Sat01/15/22 at 1115, [facility] proMETHazin e (PHENERGAN) 12.5 mg in NaCl 0.9% (NS) 50 mL IV piggyback 01-15 15:30: 00 01-15 15:28 :00 No 12.5mg 12.5 mg, IV Piggyback, ONCE, 1 dose, On Sat01/15/22 at 1030, [facility] NaCl 0.9% (NS) bolus infusion 1,000 mL 01-15 15:00: 00 01-15 15:38 :00 No 1000mL at 999 mL/hr, 1,000 mL, IV Infusion, ONCE, 1 dose, On Sat01/15/22 at 1000, [facility] morpHINE (4 mg/mL) injection 4 mg 01-15 15:00: 00 01-15 14:37 :00 No 4mg 4 mg, Slow IV Push, ONCE, 1 dose, On Sat01/15/22 at 1000, [facility] ondansetron (ZOFRAN (PF)) injection 8 mg 01-15 14:15: 00 01-15 14:37 :00 No 8mg 8 mg, Slow IV Push, ONCE, 1 dose, On Sat01/15/22 at 0915, [facility] dexamethaso ne sod phos PF injection 10 mg 01-15 14:15: 00 01-15 14:37 :00 No 10mg 10 mg, Slow IV Push, ONCE, 1 dose, On Sat01/15/22 at 0915, 1 mL [facility] proMETHazin e 25 mg tablet 01-15 00:00: 00 02-27 00:00 :00 No [id number] 25mg Take 1 tablet by mouth every 6 (six) hours as needed for Nausea and Vomiting (N/V). [facility] ondansetron (ZOFRAN-ODT ) disintegrat ing tablet 4 mg 830 01:45: 00 01-09 00:56 :00 No 4mg 4 mg, Oral, ONCE, 1 dose, On Sat01/08/22 at 2045, Routine [facility] HYDROcodone -acetaminop hen (NORCO 5) 5-325 mg tablet 1 tablet 01-09 00:45: 00 01-09 00:37 :00 No 1{tbl} 1 tablet, Oral, ONCE, 1 dose, On Sat01/08/22 at 1945, [facility] diphenhydrA MINE (BENADRYL) injection 25 mg 01-08 23:45: 00 01-08 23:51 :00 No 25mg 25 mg, Slow IV Push, ONCE, 1 dose, On Sat01/08/22 at 1845, STAT [facility] dexamethaso ne sod phos PF injection 10 mg 01-08 23:45: 00 01-08 23:50 :00 No 10mg 10 mg, Slow IV Push, ONCE, 1 dose, On Sat01/08/22 at 1845, 1 mL [facility] ketorolac (TORADOL) injection 30 mg 01-08 23:45: 00 01-08 23:51 :00 No 30mg 30 mg, Slow IV Push, ONCE, 1 dose, On Sat01/08/22 at 1845, [place] [facility] acetaminoph en (TYLENOL ARTHRITIS PAIN) 650 mg CR tablet 01-08 00:00: 00 04-07 00:00 :00 No [id number] 650mg Take 1 tablet by mouth every 8 (eight) hours as needed for Pain. [facility] ondansetron 4 mg disintegrat ing tablet 01-08 00:00: 00 02-27 00:00 :00 No [id number] 4mg Take 1 tablet by mouth every 8 (eight) hours as needed for Nausea and Vomiting (N/V). [facility] ketorolac 10 mg tablet 01-08 00:00: 00 02-27 00:00 :00 No [id number] 10mg Take 1 tablet by mouth every 6 (six) hours as needed for Pain (scale 4-6) or Pain (scale 7-10). [facility] metaxalone (SKELAXIN) 800 mg tablet 01-08 00:00: 00 02-27 00:00 :00 No [id number] 800mg Take 1 tablet by mouth in the morning and 1 tablet at noon and 1 tablet in the evening. [facility] metroNIDAZO LE 500 mg tablet 12-18 00:00: 00 02-27 00:00 :00 No 500mg Take 1 tablet by mouth every 12 (twelve) hours. [facility] trazodone/d ietary supp. no.8 (TRAZAMINE ORAL) 12-12 15:08: 46 12-12 00:00 :00 No Take by mouth. [facility] diphenhydrA MINE 25 mg capsule 12-12 13:03: 04 Yes 25mg Take 25 mg by mouth every 6 (six) hours as needed for Allergies. [facility] carbamazepi ne (TEGRETOL ORAL) 12-12 13:03: 04 Yes Take by mouth. [facility] traZODone 50 mg tablet 12-12 00:00: 00 02-27 00:00 :00 No [id number] 50mg Take 1 tablet by mouth at bedtime. [facility] SERTraline (ZOLOFT) 50 mg tablet 12-12 00:00: 00 02-27 00:00 :00 No [id number] 50mg Take 1 tablet by mouth in the morning. [facility] sulfamethox azole-trime thoprim (BACTRIM DS) 800-160 mg per tablet 12-12 00:00: 00 12-16 04:59 :00 No [id number] 1{tbl} Take 1 tablet by mouth in the morning and 1 tablet in the evening. Do all this for 3 days. [facility] ibuprofen 600 mg tablet 11-24 00:00: 02-27 00:00 :00 No [id number] 600mg Take 1 tablet by mouth every 6 (six) hours as needed for Pain (scale 4-6). [facility] acetaminoph en-codeine 300-30 mg tablet 11-24 00:00: 00 12-12 00:00 :00 No [id number] 1{tbl} Take 1 tablet by mouth every 4 (four) hours as needed for Pain (scale 4-6). Indication s: acute pain [facility] bromphenira mine-pseudo ephedrine-D M (BROMFED DM) 2-30-10 mg/5 mL syrup 11-18 00:00: 00 03-24 00:00 :00 No [id number] 5mL Take 5 mL by mouth 4 (four) times daily as needed for Congestion /Allergies or Cough. [facility] naproxen 500 mg tablet 11-18 00:00: 00 02-27 00:00 :00 No [id number] 500mg Take 1 tablet by mouth every 8 (eight) hours as needed for Pain (scale 4-6). [facility] cyclobenzap rine 10 mg tablet 11-18 00:00: 00 02-27 00:00 :00 No [id number] 10mg Take 1 tablet by mouth at bedtime as needed for Muscle Spasms. [facility] ibuprofen 100 mg/5 mL oral suspension 10-25 00:00: 00 02-27 00:00 :00 No [id number] 605mg Take 30.25 mL by mouth every 6 (six) hours as needed for Pain (scale 4-6) or Temp > 38.5 C. [facility] acetaminoph en 160 mg/5 mL liquid 10-25 00:00: 00 12-12 00:00 :00 No [id number] 608mg Take 19 mL by mouth every 6 (six) hours as needed for Fever. [facility] DULoxetine 60 mg capsule 10-06 00:00: 02-27 00:00 :00 No [facility] traZODone 50 mg tablet 27 00:00: 00 12-12 00:00 :00 No [facility] mometasone 50 mcg/actuati on nasal spray 09-28 00:00: 00 02-27 00:00 :00 No [id number] 1{spray } Use 1 [place] in each nostril 2 (two) times daily. [facility] cetirizine (ZYRTEC) 10 mg tablet 16 00:00: 00 02-27 00:00 :00 No [id number] 10mg Take 1 tablet by mouth daily. [facility] DULoxetine 30 mg capsule 09-18 00:00: 00 02-27 00:00 :00 No [facility] gabapentin 300 mg capsule 09-18 00:00: 00 02-27 00:00 :00 No [facility] ondansetron 4 mg tablet 09-18 00:00: 00 02-27 00:00 :00 No [facility] amLODIPine 5 mg tablet 09-01 00:00: 00 02-27 00:00 :00 No 5mg Take 5 mg by mouth. [facility] buPROPion XL 150 mg 24 hr tablet -20 00:00: 00 02-27 00:00 :00 No 150mg Take 150 mg by mouth. [facility] proMETHazin e 25 mg tablet 4-05 00:00: 00 09-12 00:00 :00 No [id number] 25mg Take 1 tablet by mouth every 6 (six) hours as needed for Nausea and Vomiting (N/V). [facility] traMADoL 50 mg tablet 4-05 00:00: 00 09-12 00:00 :00 No [id number] 50mg Take 1 tablet by mouth every 6 (six) hours as needed (pain). Indication s: acute pain [facility] cyclobenzap rine 10 mg tablet 08-07 00:00: 00 08-22 04:59 :00 No [id number] 10mg Take 1 tablet by mouth 3 (three) times daily for 14 days. [facility] ibuprofen 800 mg tablet 08-07 00:00: 00 08-22 04:59 :00 No [id number] 800mg Take 1 tablet by mouth every 6 (six) hours as needed for Pain (scale 1-3) for up to 14 days. [facility] diclofenac 75 mg EC tablet 08-01 00:00: 00 09-12 00:00 :00 No [facility] orphenadrin e 100 mg SR tablet 08-01 00:00: 00 09-12 00:00 :00 No [facility] divalproex 125 mg EC tablet 07-21 00:00: 00 09-12 00:00 :00 No [id number] 125mg Take 1 tablet by mouth every 12 (twelve) hours. [facility] divalproex Sprinkles 125 mg SPRINKLE capsule 07-21 00:00: 00 09-12 00:00 :00 No [facility] ibuprofen 600 mg tablet 3 00:00: 00 08-01 04:59 :00 No [id number] 600mg Take 1 tablet by mouth every 6 (six) hours as needed for Temp > 38.5 C for up to 14 days. [facility] acetaminoph en-codeine 300-30 mg tablet 130 00:00: 00 09-12 00:00 :00 No TAKE 1 TABLET BY MOUTH EVERY 4 HOURS NEEDED FOR PAIN FOR 2 DAYS [facility] fluticasone propionate 110 mcg/actuati on inhaler 05-31 00:00: 00 09-28 00:00 :00 No [id number] 2{puff} Inhale 2 Puffs every 12 (twelve) hours. [facility] benzonatate (TESSALON PERLES) 100 mg capsule 05-25 00:00: 00 09-25 00:00 :00 No [id number] 100mg Take 1 capsule by mouth every 8 (eight) hours as needed for Cough. [facility] carvediloL 25 mg tablet 2020-05 00:00: 00 02-27 00:00 :00 No 25mg Take 1 tablet by mouth 2 (two) times daily with meals. [facility] losartan 50 mg tablet 2020-05 00:00: 00 02-27 00:00 :00 No 50mg Take 1 tablet by mouth 2 (two) times daily. [facility] proMETHazin e 25 mg tablet 2020-05 00:00: 00 09-12 00:00 :00 No [facility] methocarbam oL (ROBAXIN) 500 mg tablet 2020-05 00:00: 00 05-25 00:00 :00 No [id number] 500mg Take 1 tablet by mouth every 6 (six) hours as needed (MUSCLE SPASM). [facility] vitamin B-12 (VITAMIN B-12) 500 mcg tablet 2020-05 00:00: 00 09-12 00:00 :00 No [id number] 500ug Take 1 tablet by mouth daily. [facility] methylPREDN ISolone 4 mg tablets 2020-05 00:00: 00 05-25 00:00 :00 No [id number] Follow package directions [facility] fluticasone propion-chel meteroL 115-21 mcg/actuati on inhaler 02-09 00:00: 00 05-25 00:00 :00 No [id number] 2{puff} Inhale 2 Puffs 2 (two) times daily. Rinse mouth after each use. [facility] albuterol 2.5 mg /3 mL (0.083 %) nebulizer solution 02-09 00:00: 00 05-25 00:00 :00 No [id number] 2.5mg Inhale 3 mL every 6 (six) hours as needed for Wheezing or Shortness of Breath. [facility] methocarbam oL (ROBAXIN) 500 mg tablet 02-09 00:00: 00 05-02 00:00 :00 No [id number] 500mg Take 1 tablet by mouth every 6 (six) hours as needed (MUSCLE SPASM). [facility] bromphenira mine-pseudo ephedrine-D M (BROMFED DM) 2-30-10 mg/5 mL syrup 01-31 00:00: 00 02-09 00:00 :00 No [id number] 5mL Take 5 mL by mouth 4 (four) times daily as needed for Cough. [facility] methylPREDN ISolone (MEDROL, ANABELA,) 4 mg tablets 01-20 00:00: 00 02-09 00:00 :00 No [id number] Take by mouth SEE-INSTRU CTIONS. follow package directions [facility] albuterol 90 mcg/actuati on inhaler 01-12 00:00: 00 05-25 00:00 :00 No [id number] 2{puff} Inhale 2 Puffs every 4 (four) hours as needed for Wheezing or Shortness of Breath. [facility] benzonatate 100 mg capsule 01-12 00:00: 00 02-19 00:00 :00 No [id number] 100mg Take 1 capsule by mouth 3 (three) times daily as needed for Cough. [facility] losartan 50 mg tablet 12-23 00:00: 00 02-09 00:00 :00 No 50mg Take 1 tablet by mouth 2 (two) times daily. [facility] topiramate 25 mg tablet 11-22 00:00: 00 12-26 00:00 :00 No 25mg Take 1 tablet by mouth 2 (two) times daily. [facility] OXcarbazepi ne 150 mg tablet 11-21 00:00: 02-09 00:00 :00 No [facility] FLUoxetine 40 mg capsule -12 00:00: 00 12-26 00:00 :00 No [facility] traZODone 100 mg tablet 12 00:00: 00 12-26 00:00 :00 No [facility] dicyclomine 20 mg tablet 610 00:00: 00 12-26 00:00 :00 No [id number] 20mg Take 1 tablet by mouth 4 (four) times daily. [facility] proMETHazin e 25 mg tablet 6 00:00: 00 12-26 00:00 :00 No [id number] 25mg Take 1 tablet by mouth every 6 (six) hours as needed for Nausea and Vomiting (N/V). [facility] acetaminoph en-codeine 300-30 mg tablet 05 00:00: 00 12-26 00:00 :00 No TAKE 2 TABLETS BY MOUTH EVERY 6 HOURS NEEDED FOR PAIN [facility] oxybutynin (DITROPAN XL) 10 mg 24 hr tablet 10-09 00:00: 00 12-26 00:00 :00 No [id number] 10mg Take 1 tablet by mouth daily. [facility] ondansetron (ZOFRAN ODT) 4 mg disintegrat ing tablet 10-09 00:00: 00 12-26 00:00 :00 No [id number] 4mg Take 1 tablet by mouth every 8 (eight) hours as needed for Nausea and Vomiting (N/V). [facility] ciprofloxac in HCl 500 mg tablet 30 00:00: 00 11-22 00:00 :00 No [id number] 500mg Take 1 tablet by mouth 2 (two) times daily. [facility] predniSONE 20 mg tablet 25 00:00: 00 11-22 00:00 :00 No [id number] 20mg Take 1 tablet by mouth daily. Days 1-2: 3 pills (60 mg). Days 3-4: 2 pills (40 mg). Days 5-6: 1 pill (20 mg). Days 7-8: 1/2 pill (10 mg). Then stop [facility] mupirocin 2 % ointment 09-29 00:00: 00 12-26 00:00 :00 No [id number] Apply to both nostrils at bedtime [facility] naproxen sodium (ANAPROX DS) 550 mg tablet 09-28 00:00: 00 12-26 00:00 :00 No [id number] 550mg Take 1 tablet by mouth 2 (two) times daily with meals. [facility] losartan 25 mg tablet 09-16 00:00: 00 12-22 00:00 :00 No 25mg Take 1 tablet by mouth 2 (two) times daily. [facility] nadoloL 20 mg tablet 09-16 00:00: 00 12-22 00:00 :00 No [id number] Please take Nadalol 40 mg QAM [facility] LOESTRIN FE (LOESTRIN FE 1/20) 1 mg-20 mcg (21)/75 mg (7) tablet 09-06 00:00: 00 02-09 00:00 :00 No [id number] 1{tbl} Take 1 tablet by mouth daily. [facility] FLUoxetine 20 mg capsule 09-06 00:00: 00 11-22 00:00 :00 No [id number] 20mg Take 1 capsule by mouth daily. [facility] traZODone 50 mg tablet 09-06 00:00: 00 11-22 00:00 :00 No [id number] 50mg Take 1 tablet by mouth at bedtime. [facility] nadoloL 20 mg tablet 08-31 00:00: 00 09-16 00:00 :00 No [id number] Please take Nadalol 40 mg QAM and 20 mg QPM [facility] methocarbam oL (ROBAXIN) 500 mg tablet 4-08 00:00: 00 09-30 00:00 :00 No [id number] 500mg Take 1 tablet by mouth every 6 (six) hours as needed (MUSCLE SPASM). [facility] traMADoL (ULTRAM) 50 mg tablet 4-08 00:00: 00 09-30 00:00 :00 No [id number] 50mg Take 1 tablet by mouth every 6 (six) hours as needed for Pain (scale 7-10). Indication s: acute pain [facility] ibuprofen 800 mg tablet -04 00:00: 00 11-22 00:00 :00 No TAKE 1 TABLET BY MOUTH EVERY 12 HOURS NEEDED FOR PAIN [facility] ondansetron (ZOFRAN ODT) 4 mg disintegrat ing tablet 08-01 00:00: 00 09-30 00:00 :00 No [id number] 4mg Take 1 tablet by mouth every 8 (eight) hours as needed for Nausea and Vomiting (N/V). [facility] ketorolac 10 mg tablet 08-01 00:00: 00 09-30 00:00 :00 No [id number] 10mg Take 1 tablet by mouth every 6 (six) hours as needed for Pain (scale 4-6). [facility] ciprofloxac in HCl 250 mg tablet 08-01 00:00: 00 09-30 00:00 :00 No [id number] 250mg Take 1 tablet by mouth 2 (two) times daily. [facility] lidocaine 5 % (700 mg/patch) patch 07-22 00:00: 00 09-30 00:00 :00 No [id number] 1{patch } Apply 1 Patch to area(s) every 24 (twenty-fo ur) hours as needed for Localized pain. [facility] topiramate 25 mg tablet - 00:00: 00 11-22 00:00 :00 No 25mg Take 1 tablet by mouth 2 (two) times daily. [facility] metoprolol succinate XL 25 mg 24 hr tablet 2019-05 2-21 00:00: 00 06-15 00:00 :00 No [id number] 12.5mg Take 0.5 tablets by mouth 2 (two) times daily for 90 days. [facility] FLUoxetine 20 mg capsule 2019-05 00:00: 09-06 00:00 :00 No 20mg Take 20 mg by mouth daily. [facility] norgestimat e-ethinyl estradiol 0.25-35 mg-mcg per tablet 11-17 00:00: 04-15 00:00 :00 No [id number] 1{tbl} Take 1 tablet by mouth daily. [facility] buPROPion XL (WELLBUTRIN XL) 150 mg 24 hr tablet 08-12 00:00: 01-04 00:00 :00 No [id number] 150mg Take 1 tablet by mouth daily. [facility] acetaminoph en 325 mg tablet 07-22 00:00: 01-04 00:00 :00 No [id number] 650mg Take 2 tablets by mouth every 6 (six) hours as needed for Pain (scale 1-3) or Pain (scale 4-6). [facility] vitamin w/FA tablet 07-22 00:00: 00 01-04 00:00 :00 No [id number] 1{tbl} Take 1 tablet by mouth daily. [facility] docusate calcium 240 mg capsule 07-22 00:00: 00 01-04 00:00 :00 No [id number] 240mg Take 1 capsule by mouth once daily as needed for Constipati on. [facility] ferrous sulfate 325 mg (65 mg iron) tablet 07-22 00:00: 00 01-04 00:00 :00 No [id number] 325mg Take 1 tablet by mouth 2 (two) times daily. [facility] ibuprofen 600 mg tablet 07-22 00:00: 00 01-04 00:00 :00 No [id number] 600mg Take 1 tablet by mouth every 6 (six) hours as needed (Pain). Take with food or milk. [facility] ALBUTEROL 90 mcg/actuati on inhaler 05-26 00:00: 00 05-01 00:00 :00 No [id number] 103 INHALE 2 PUFFS BY MOUTH EVERY 6 HOURS NEEDED FOR WHEEZING FOR SHORTNESS OF BREATH [facility] buPROPion SR (WELLBUTRIN SR) 150 mg SR tablet 05-21 00:00: 00 01-04 00:00 :00 No [id number] 150mg Take 1 tablet by mouth 2 (two) times daily. [facility] busPIRone 10 mg tablet 05-21 00:00: 01-04 00:00 :00 No [id number] 109 10mg Take 1 tablet by mouth 3 (three) times daily. [facility] Immunizations Ordered Immunization Name Filled Immunization Name Date Status Comments Source Influenza Virus Vaccine Quad IM, Preserv and ABX Free 6 MO-64 YRS 2022-02-27 00:00:00 Completed [facility] Influenza Virus Vaccine Quad IM, Preserv and ABX Free 6 MO-64 YRS 2022-02-27 00:00:00 Completed [facility] Influenza Virus Vaccine Quad IM, Preserv and ABX Free 6 MO-64 YRS 2022-02-27 00:00:00 Completed [facility] Influenza Virus Vaccine Quad IM, Preserv and ABX Free 6 MO-64 YRS 2022-02-27 00:00:00 Completed [facility] Influenza Virus Vaccine Quad IM, Preserv and ABX Free 6 MO-64 YRS 2022-02-27 00:00:00 Completed [facility] Influenza Virus Vaccine Quad IM, Preserv and ABX Free 6 MO-64 YRS 2022-02-27 00:00:00 Completed [facility] Influenza Virus Vaccine Quad IM, Preserv and ABX Free 6 MO-64 YRS 2022-02-27 00:00:00 Completed [facility] Influenza Virus Vaccine Quad IM, Preserv and ABX Free 6 MO-64 YRS 2022-02-27 00:00:00 Completed [facility] Influenza Virus Vaccine Quad IM, Preserv and ABX Free 6 MO-64 YRS 2022-02-27 00:00:00 Completed [facility] Influenza Virus Vaccine Quad IM, Preserv and ABX Free 6 MO-64 YRS 2022-02-27 00:00:00 Completed [facility] Influenza Virus Vaccine Quad IM, Preserv and ABX Free 6 MO-64 YRS 2022-02-27 00:00:00 Completed [facility] Influenza Virus Vaccine Quad IM, Preserv and ABX Free 6 MO-64 YRS 2022-02-27 00:00:00 Completed [facility] Influenza Virus Vaccine Quad IM, Preserv and ABX Free 6 MO-64 YRS 2022-02-27 00:00:00 Completed [facility] Influenza Virus Vaccine Quad IM, Preserv and ABX Free 6 MO-64 YRS 2022-02-27 00:00:00 Completed [facility] Influenza Virus Vaccine Quad IM, Preserv and ABX Free 6 MO-64 YRS 2022-02-27 00:00:00 Completed [facility] Influenza Virus Vaccine Quad IM, Preserv and ABX Free 6 MO-64 YRS 2022-02-27 00:00:00 Completed [facility] Influenza Virus Vaccine Quad IM, Preserv and ABX Free 6 MO-64 YRS 2022-02-27 00:00:00 Completed [facility] Influenza Virus Vaccine Quad IM, Preserv and ABX Free 6 MO-64 YRS 2022-02-27 00:00:00 Completed [facility] Influenza Virus Vaccine Quad IM, Preserv and ABX Free 6 MO-64 YRS 2022-02-27 00:00:00 Completed [facility] Influenza Virus Vaccine Quad IM, Preserv and ABX Free 6 MO-64 YRS 2022-02-27 00:00:00 Completed [facility] Influenza Virus Vaccine Quad IM, Preserv and ABX Free 6 MO-64 YRS 2022-02-27 00:00:00 Completed [facility] Influenza Virus Vaccine Quad IM, Preserv and ABX Free 6 MO-64 YRS 2022-02-27 00:00:00 Completed [facility] Influenza Virus Vaccine Quad IM, Preserv and ABX Free 6 MO-64 YRS 2022-02-27 00:00:00 Completed [facility] Influenza Virus Vaccine Quad IM, Preserv and ABX Free 6 MO-64 YRS 2022-02-27 00:00:00 Completed [facility] Influenza Virus Vaccine Quad IM, Preserv and ABX Free 6 MO-64 YRS 2022-02-27 00:00:00 Completed [facility] Influenza Virus Vaccine Quad IM, Preserv and ABX Free 6 MO-64 YRS 2022-02-27 00:00:00 Completed [facility] Influenza Virus Vaccine Quad IM, Preserv and ABX Free 6 MO-64 YRS 2022-02-27 00:00:00 Completed [facility] Influenza Virus Vaccine Quad IM, Preserv and ABX Free 6 MO-64 YRS 2022-02-27 00:00:00 Completed [facility] Influenza Virus Vaccine Quad IM, Preserv and ABX Free 6 MO-64 YRS 2022-02-27 00:00:00 Completed [facility] Influenza Virus Vaccine Quad IM, Preserv and ABX Free 6 MO-64 YRS 2022-02-27 00:00:00 Completed [facility] Influenza Virus Vaccine Quad IM, Preserv and ABX Free 6 MO-64 YRS 2022-02-27 00:00:00 Completed [facility] Influenza Virus Vaccine Quad IM, Preserv and ABX Free 6 MO-64 YRS 2022-02-27 00:00:00 Completed [facility] Influenza Virus Vaccine Quad IM, Preserv and ABX Free 6 MO-64 YRS 2022-02-27 00:00:00 Completed [facility] Influenza Virus Vaccine Quad IM, Preserv and ABX Free 6 MO-64 YRS 2022-02-27 00:00:00 Completed [facility] Influenza Virus Vaccine Quad IM, Preserv and ABX Free 6 MO-64 YRS 2022-02-27 00:00:00 Completed [facility] Influenza Virus Vaccine Quad IM, Preserv and ABX Free 6 MO-64 YRS 2022-02-27 00:00:00 Completed [facility] Influenza Virus Vaccine Quad IM, Preserv and ABX Free 6 MO-64 YRS 2022-02-27 00:00:00 Completed [facility] Influenza Virus Vaccine Quad IM, Preserv and ABX Free 6 MO-64 YRS 2022-02-27 00:00:00 Completed [facility] Influenza Virus Vaccine Quad IM, Preserv and ABX Free 6 MO-64 YRS 2022-02-27 00:00:00 Completed [facility] Influenza Virus Vaccine Quad IM, Preserv and ABX Free 6 MO-64 YRS 2022-02-27 00:00:00 Completed [facility] Influenza Virus Vaccine Quad IM, Preserv and ABX Free 6 MO-64 YRS 2022-02-27 00:00:00 Completed [facility] Influenza Virus Vaccine Quad IM, Preserv and ABX Free 6 MO-64 YRS 2022-02-27 00:00:00 Completed [facility] Influenza Virus Vaccine Quad IM, Preserv and ABX Free 6 MO-64 YRS 2022-02-27 00:00:00 Completed [facility] Influenza Virus Vaccine Quad IM, Preserv and ABX Free 6 MO-64 YRS 2022-02-27 00:00:00 Completed [facility] Influenza Virus Vaccine Quad IM, Preserv and ABX Free 6 MO-64 YRS 2022-02-27 00:00:00 Completed [facility] Influenza Virus Vaccine Quad IM, Preserv and ABX Free 6 MO-64 YRS 2022-02-27 00:00:00 Completed [facility] Influenza Virus Vaccine Quad IM, Preserv and ABX Free 6 MO-64 YRS 2022-02-27 00:00:00 Completed [facility] Influenza Virus Vaccine Quad IM, Preserv and ABX Free 6 MO-64 YRS 2022-02-27 00:00:00 Completed [facility] Influenza Virus Vaccine Quad IM, Preserv and ABX Free 6 MO-64 YRS 2022-02-27 00:00:00 Completed [facility] Influenza Virus Vaccine Quad IM, Preserv and ABX Free 6 MO-64 YRS (FLUCELVAX) 2022-02-27 00:00:00 Completed [facility] Influenza Virus Vaccine Quad IM, Preserv and ABX Free 6 MO-64 YRS (FLUCELVAX) 2022-02-27 00:00:00 Completed [facility] Influenza Virus Vaccine Quad IM, Preserv and ABX Free 6 MO-64 YRS (FLUCELVAX) 2022-02-27 00:00:00 Completed [facility] Influenza Virus Vaccine Quad .5 mL IM 6+ MO 2022-02-21 00:00:00 Completed [facility] Influenza Virus Vaccine Quad .5 mL IM 6+ MO 2022-02-21 00:00:00 Completed [facility] Influenza Virus Vaccine Quad .5 mL IM 6+ MO 2022-02-21 00:00:00 Completed [facility] Influenza Virus Vaccine Quad .5 mL IM 6+ MO 2022-02-21 00:00:00 Completed [facility] Influenza Virus Vaccine Quad .5 mL IM 6+ MO 2022-02-21 00:00:00 Completed [facility] Influenza Virus Vaccine Quad .5 mL IM 6+ MO 2022-02-21 00:00:00 Completed [facility] Influenza Virus Vaccine Quad .5 mL IM 6+ MO 2022-02-21 00:00:00 Completed [facility] Influenza Virus Vaccine Quad .5 mL IM 6+ MO 2022-02-21 00:00:00 Completed [facility] Influenza Virus Vaccine Quad .5 mL IM 6+ MO 2022-02-21 00:00:00 Completed [facility] Influenza Virus Vaccine Quad .5 mL IM 6+ MO 2022-02-21 00:00:00 Completed [facility] Influenza Virus Vaccine Quad .5 mL IM 6+ MO 2022-02-21 00:00:00 Completed [facility] Influenza Virus Vaccine Quad .5 mL IM 6+ MO 2022-02-21 00:00:00 Completed [facility] Influenza Virus Vaccine Quad .5 mL IM 6+ MO 2022-02-21 00:00:00 Completed [facility] Influenza Virus Vaccine Quad .5 mL IM 6+ MO (FLUZONE/FLULAVAL/F LUARIX) 2022-02-21 00:00:00 Completed [facility] Influenza Virus Vaccine Quad .5 mL IM 6+ MO (FLUZONE/FLULAVAL/F LUARIX) 2022-02-21 00:00:00 Completed [facility] Influenza Virus Vaccine Quad .5 mL IM 6+ MO (FLUZONE/FLULAVAL/F LUARIX) 2022-02-21 00:00:00 Completed [facility] Influenza Virus Vaccine 2021-06-11 00:00:00 Completed [facility] Influenza Virus Vaccine 2021-06-11 00:00:00 Completed [facility] Influenza Virus Vaccine 2021-06-11 00:00:00 Completed [facility] Influenza Virus Vaccine 2021-06-11 00:00:00 Completed [facility] Influenza Virus Vaccine 2021-06-11 00:00:00 Completed [facility] Influenza Virus Vaccine 2021-06-11 00:00:00 Completed [facility] Influenza Virus Vaccine 2021-06-11 00:00:00 Completed [facility] Influenza Virus Vaccine 2021-06-11 00:00:00 Completed [facility] Influenza Virus Vaccine 2021-06-11 00:00:00 Completed [facility] Influenza Virus Vaccine 2021-06-11 00:00:00 Completed [facility] Influenza Virus Vaccine 2021-06-11 00:00:00 Completed [facility] Influenza Virus Vaccine 2021-06-11 00:00:00 Completed [facility] Influenza Virus Vaccine 2021-06-11 00:00:00 Completed [facility] Influenza Virus Vaccine 2021-06-11 00:00:00 Completed [facility] Influenza Virus Vaccine 2021-06-11 00:00:00 Completed [facility] Influenza Virus Vaccine 2021-06-11 00:00:00 Completed [facility] Influenza Virus Vaccine 2021-06-11 00:00:00 Completed [facility] Influenza Virus Vaccine 2021-06-11 00:00:00 Completed [facility] Influenza Virus Vaccine 2021-06-11 00:00:00 Completed [facility] Influenza Virus Vaccine 2021-06-11 00:00:00 Completed [facility] Influenza Virus Vaccine 2021-06-11 00:00:00 Completed [facility] Influenza Virus Vaccine 2021-06-11 00:00:00 Completed [facility] Influenza Virus Vaccine 2021-06-11 00:00:00 Completed [facility] Influenza Virus Vaccine 2021-06-11 00:00:00 Completed [facility] Influenza Virus Vaccine 2021-06-11 00:00:00 Completed [facility] Influenza Virus Vaccine 2021-06-11 00:00:00 Completed [facility] Influenza Virus Vaccine 2021-06-11 00:00:00 Completed [facility] Influenza Virus Vaccine 2021-06-11 00:00:00 Completed [facility] Influenza Virus Vaccine 2021-06-11 00:00:00 Completed [facility] Influenza Virus Vaccine 2021-06-11 00:00:00 Completed [facility] Influenza Virus Vaccine 2021-06-11 00:00:00 Completed [facility] Influenza Virus Vaccine 2021-06-11 00:00:00 Completed [facility] Influenza Virus Vaccine 2021-06-11 00:00:00 Completed [facility] Influenza Virus Vaccine 2021-06-11 00:00:00 Completed [facility] Influenza Virus Vaccine 2021-06-11 00:00:00 Completed [facility] Influenza Virus Vaccine 2021-06-11 00:00:00 Completed [facility] Influenza Virus Vaccine 2021-06-11 00:00:00 Completed [facility] Influenza Virus Vaccine 2021-06-11 00:00:00 Completed [facility] Influenza Virus Vaccine 2021-06-11 00:00:00 Completed [facility] Influenza Virus Vaccine 2021-06-11 00:00:00 Completed [facility] Influenza Virus Vaccine 2021-06-11 00:00:00 Completed [facility] Influenza Virus Vaccine 2021-06-11 00:00:00 Completed [facility] Influenza Virus Vaccine 2021-06-11 00:00:00 Completed [facility] Influenza Virus Vaccine 2021-06-11 00:00:00 Completed [facility] Influenza Virus Vaccine 2021-06-11 00:00:00 Completed [facility] Influenza Virus Vaccine 2021-06-11 00:00:00 Completed [facility] Influenza Virus Vaccine 2021-06-11 00:00:00 Completed [facility] Influenza Virus Vaccine 2021-06-11 00:00:00 Completed [facility] Influenza Virus Vaccine Quad .5 mL IM 6+ MO 2021-06-11 00:00:00 Completed [facility] Influenza Virus Vaccine 2021-06-11 00:00:00 Completed [facility] Influenza Virus Vaccine Quad .5 mL IM 6+ MO 2021-06-11 00:00:00 Completed [facility] Influenza Virus Vaccine 2021-06-11 00:00:00 Completed [facility] Influenza Virus Vaccine Quad .5 mL IM 6+ MO 2021-06-11 00:00:00 Completed [facility] Influenza Virus Vaccine 2021-06-11 00:00:00 Completed [facility] Influenza Virus Vaccine Quad .5 mL IM 6+ MO 2021-06-11 00:00:00 Completed [facility] Influenza Virus Vaccine 2021-06-11 00:00:00 Completed [facility] Influenza Virus Vaccine Quad .5 mL IM 6+ MO 2021-06-11 00:00:00 Completed [facility] Influenza Virus Vaccine 2021-06-11 00:00:00 Completed [facility] Influenza Virus Vaccine Quad .5 mL IM 6+ MO 2021-06-11 00:00:00 Completed [facility] Influenza Virus Vaccine 2021-06-11 00:00:00 Completed [facility] Influenza Virus Vaccine Quad .5 mL IM 6+ MO 2021-06-11 00:00:00 Completed [facility] Influenza Virus Vaccine 2021-06-11 00:00:00 Completed [facility] Influenza Virus Vaccine Quad .5 mL IM 6+ MO 2021-06-11 00:00:00 Completed [facility] Influenza Virus Vaccine 2021-06-11 00:00:00 Completed [facility] Influenza Virus Vaccine Quad .5 mL IM 6+ MO 2021-06-11 00:00:00 Completed [facility] Influenza Virus Vaccine 2021-06-11 00:00:00 Completed [facility] Influenza Virus Vaccine Quad .5 mL IM 6+ MO 2021-06-11 00:00:00 Completed [facility] Influenza Virus Vaccine 2021-06-11 00:00:00 Completed [facility] Influenza Virus Vaccine Quad .5 mL IM 6+ MO 2021-06-11 00:00:00 Completed [facility] Influenza Virus Vaccine 2021-06-11 00:00:00 Completed [facility] Influenza Virus Vaccine Quad .5 mL IM 6+ MO 2021-06-11 00:00:00 Completed [facility] Influenza Virus Vaccine 2021-06-11 00:00:00 Completed [facility] Influenza Virus Vaccine Quad .5 mL IM 6+ MO 2021-06-11 00:00:00 Completed [facility] Influenza Virus Vaccine 2021-06-11 00:00:00 Completed [facility] Influenza Virus Vaccine Quad .5 mL IM 6+ MO (FLUZONE/FLULAVAL/F LUARIX) 2021-06-11 00:00:00 Completed [facility] Influenza Virus Vaccine 2021-06-11 00:00:00 Completed [facility] Influenza Virus Vaccine Quad .5 mL IM 6+ MO (FLUZONE/FLULAVAL/F LUARIX) 2021-06-11 00:00:00 Completed [facility] Influenza Virus Vaccine 2021-06-11 00:00:00 Completed [facility] Influenza Virus Vaccine Quad .5 mL IM 6+ MO (FLUZONE/FLULAVAL/F LUARIX) 2021-06-11 00:00:00 Completed [facility] Influenza Virus Vaccine 2020-05-19 00:00:00 Completed [facility] Influenza Virus Vaccine 2020-05-19 00:00:00 Completed [facility] Influenza Virus Vaccine 2020-05-19 00:00:00 Completed [facility] Influenza Virus Vaccine 2020-05-19 00:00:00 Completed [facility] Influenza Virus Vaccine 2020-05-19 00:00:00 Completed [facility] Influenza Virus Vaccine 2020-05-19 00:00:00 Completed [facility] Influenza Virus Vaccine 2020-05-19 00:00:00 Completed [facility] Influenza Virus Vaccine 2020-05-19 00:00:00 Completed [facility] Influenza Virus Vaccine 2020-05-19 00:00:00 Completed [facility] Influenza Virus Vaccine 2020-05-19 00:00:00 Completed [facility] Influenza Virus Vaccine 2020-05-19 00:00:00 Completed [facility] Influenza Virus Vaccine 2020-05-19 00:00:00 Completed [facility] Influenza Virus Vaccine 2020-05-19 00:00:00 Completed [facility] Influenza Virus Vaccine 2020-05-19 00:00:00 Completed [facility] Influenza Virus Vaccine 2020-05-19 00:00:00 Completed [facility] Influenza Virus Vaccine 2020-05-19 00:00:00 Completed [facility] Influenza Virus Vaccine 2020-05-19 00:00:00 Completed [facility] Influenza Virus Vaccine 2020-05-19 00:00:00 Completed [facility] Influenza Virus Vaccine 2020-05-19 00:00:00 Completed [facility] Influenza Virus Vaccine 2020-05-19 00:00:00 Completed [facility] Influenza Virus Vaccine 2020-05-19 00:00:00 Completed [facility] Influenza Virus Vaccine 2020-05-19 00:00:00 Completed [facility] Influenza Virus Vaccine 2020-05-19 00:00:00 Completed [facility] Influenza Virus Vaccine 2020-05-19 00:00:00 Completed [facility] Influenza Virus Vaccine 2020-05-19 00:00:00 Completed [facility] Influenza Virus Vaccine 2020-05-19 00:00:00 Completed [facility] Influenza Virus Vaccine 2020-05-19 00:00:00 Completed [facility] Influenza Virus Vaccine 2020-05-19 00:00:00 Completed [facility] Influenza Virus Vaccine 2020-05-19 00:00:00 Completed [facility] Influenza Virus Vaccine 2020-05-19 00:00:00 Completed [facility] Influenza Virus Vaccine 2020-05-19 00:00:00 Completed [facility] Influenza Virus Vaccine 2020-05-19 00:00:00 Completed [facility] Influenza Virus Vaccine 2020-05-19 00:00:00 Completed [facility] Influenza Virus Vaccine 2020-05-19 00:00:00 Completed [facility] Influenza Virus Vaccine 2020-05-19 00:00:00 Completed [facility] Influenza Virus Vaccine 2020-05-19 00:00:00 Completed [facility] Influenza Virus Vaccine 2020-05-19 00:00:00 Completed [facility] Influenza Virus Vaccine 2020-05-19 00:00:00 Completed [facility] Influenza Virus Vaccine 2020-05-19 00:00:00 Completed [facility] Influenza Virus Vaccine 2020-05-19 00:00:00 Completed [facility] Influenza Virus Vaccine 2020-05-19 00:00:00 Completed [facility] Influenza Virus Vaccine 2020-05-19 00:00:00 Completed [facility] Influenza Virus Vaccine 2020-05-19 00:00:00 Completed [facility] Influenza Virus Vaccine 2020-05-19 00:00:00 Completed [facility] Influenza Virus Vaccine 2020-05-19 00:00:00 Completed [facility] Influenza Virus Vaccine 2020-05-19 00:00:00 Completed [facility] Influenza Virus Vaccine 2020-05-19 00:00:00 Completed [facility] Influenza Virus Vaccine 2020-05-19 00:00:00 Completed [facility] Influenza Virus Vaccine 2020-05-19 00:00:00 Completed [facility] Influenza Virus Vaccine 2020-05-19 00:00:00 Completed [facility] Influenza Virus Vaccine 2020-05-19 00:00:00 Completed [facility] Influenza Virus Vaccine 2020-05-19 00:00:00 Completed [facility] Influenza Virus Vaccine 2020-05-19 00:00:00 Completed [facility] Influenza Virus Vaccine 2020-05-19 00:00:00 Completed [facility] Influenza Virus Vaccine 2020-05-19 00:00:00 Completed [facility] Influenza Virus Vaccine 2020-05-19 00:00:00 Completed [facility] Influenza Virus Vaccine 2020-05-19 00:00:00 Completed [facility] Influenza Virus Vaccine 2020-05-19 00:00:00 Completed [facility] Influenza Virus Vaccine 2020-05-19 00:00:00 Completed [facility] Influenza Virus Vaccine 2020-05-19 00:00:00 Completed [facility] Influenza Virus Vaccine 2020-05-19 00:00:00 Completed [facility] Influenza Virus Vaccine 2020-05-19 00:00:00 Completed [facility] Influenza Virus Vaccine 2020-05-19 00:00:00 Completed [facility] Influenza Virus Vaccine Recomb Quad IM, Preserv and ABX Free 18-64 YRS 2020-05-16 00:00:00 Completed [facility] Influenza Virus Vaccine Recomb Quad IM, Preserv and ABX Free 18-64 YRS 2020-05-16 00:00:00 Completed [facility] Influenza Virus Vaccine Recomb Quad IM, Preserv and ABX Free 18-64 YRS 2020-05-16 00:00:00 Completed [facility] Influenza Virus Vaccine Recomb Quad IM, Preserv and ABX Free 18-64 YRS 2020-05-16 00:00:00 Completed [facility] Influenza Virus Vaccine Recomb Quad IM, Preserv and ABX Free 18-64 YRS 2020-05-16 00:00:00 Completed [facility] Influenza Virus Vaccine Recomb Quad IM, Preserv and ABX Free 18-64 YRS 2020-05-16 00:00:00 Completed [facility] Influenza Virus Vaccine Recomb Quad IM, Preserv and ABX Free 18-64 YRS 2020-05-16 00:00:00 Completed [facility] Influenza Virus Vaccine Recomb Quad IM, Preserv and ABX Free 18-64 YRS 2020-05-16 00:00:00 Completed [facility] Influenza Virus Vaccine Recomb Quad IM, Preserv and ABX Free 18-64 YRS 2020-05-16 00:00:00 Completed [facility] Influenza Virus Vaccine Recomb Quad IM, Preserv and ABX Free 18-64 YRS 2020-05-16 00:00:00 Completed [facility] Influenza Virus Vaccine Recomb Quad IM, Preserv and ABX Free 18-64 YRS 2020-05-16 00:00:00 Completed [facility] Influenza Virus Vaccine Recomb Quad IM, Preserv and ABX Free 18-64 YRS 2020-05-16 00:00:00 Completed [facility] Influenza Virus Vaccine Recomb Quad IM, Preserv and ABX Free 18-64 YRS 2020-05-16 00:00:00 Completed [facility] Influenza Virus Vaccine Recomb Quad IM, Preserv and ABX Free 18-64 YRS 2020-05-16 00:00:00 Completed [facility] Influenza Virus Vaccine Recomb Quad IM, Preserv and ABX Free 18-64 YRS 2020-05-16 00:00:00 Completed [facility] Influenza Virus Vaccine Recomb Quad IM, Preserv and ABX Free 18-64 YRS 2020-05-16 00:00:00 Completed [facility] Influenza Virus Vaccine Recomb Quad IM, Preserv and ABX Free 18-64 YRS 2020-05-16 00:00:00 Completed [facility] Influenza Virus Vaccine Recomb Quad IM, Preserv and ABX Free 18-64 YRS 2020-05-16 00:00:00 Completed [facility] Influenza Virus Vaccine Recomb Quad IM, Preserv and ABX Free 18-64 YRS 2020-05-16 00:00:00 Completed [facility] Influenza Virus Vaccine Recomb Quad IM, Preserv and ABX Free 18-64 YRS 2020-05-16 00:00:00 Completed [facility] Influenza Virus Vaccine Recomb Quad IM, Preserv and ABX Free 18-64 YRS 2020-05-16 00:00:00 Completed [facility] Influenza Virus Vaccine Recomb Quad IM, Preserv and ABX Free 18-64 YRS 2020-05-16 00:00:00 Completed [facility] Influenza Virus Vaccine Recomb Quad IM, Preserv and ABX Free 18-64 YRS 2020-05-16 00:00:00 Completed [facility] Influenza Virus Vaccine Recomb Quad IM, Preserv and ABX Free 18-64 YRS 2020-05-16 00:00:00 Completed [facility] Influenza Virus Vaccine Recomb Quad IM, Preserv and ABX Free 18-64 YRS 2020-05-16 00:00:00 Completed [facility] Influenza Virus Vaccine Recomb Quad IM, Preserv and ABX Free 18-64 YRS 2020-05-16 00:00:00 Completed [facility] Influenza Virus Vaccine Recomb Quad IM, Preserv and ABX Free 18-64 YRS 2020-05-16 00:00:00 Completed [facility] Influenza Virus Vaccine Recomb Quad IM, Preserv and ABX Free 18-64 YRS 2020-05-16 00:00:00 Completed [facility] Influenza Virus Vaccine Recomb Quad IM, Preserv and ABX Free 18-64 YRS 2020-05-16 00:00:00 Completed [facility] Influenza Virus Vaccine Recomb Quad IM, Preserv and ABX Free 18-64 YRS 2020-05-16 00:00:00 Completed [facility] Influenza Virus Vaccine Recomb Quad IM, Preserv and ABX Free 18-64 YRS 2020-05-16 00:00:00 Completed [facility] Influenza Virus Vaccine Recomb Quad IM, Preserv and ABX Free 18-64 YRS 2020-05-16 00:00:00 Completed [facility] Influenza Virus Vaccine Recomb Quad IM, Preserv and ABX Free 18-64 YRS 2020-05-16 00:00:00 Completed [facility] Influenza Virus Vaccine Recomb Quad IM, Preserv and ABX Free 18-64 YRS 2020-05-16 00:00:00 Completed [facility] Influenza Virus Vaccine Recomb Quad IM, Preserv and ABX Free 18-64 YRS 2020-05-16 00:00:00 Completed [facility] Influenza Virus Vaccine Recomb Quad IM, Preserv and ABX Free 18-64 YRS 2020-05-16 00:00:00 Completed [facility] Influenza Virus Vaccine Recomb Quad IM, Preserv and ABX Free 18-64 YRS 2020-05-16 00:00:00 Completed [facility] Influenza Virus Vaccine Recomb Quad IM, Preserv and ABX Free 18-64 YRS 2020-05-16 00:00:00 Completed [facility] Influenza Virus Vaccine Recomb Quad IM, Preserv and ABX Free 18-64 YRS 2020-05-16 00:00:00 Completed [facility] Influenza Virus Vaccine Recomb Quad IM, Preserv and ABX Free 18-64 YRS 2020-05-16 00:00:00 Completed [facility] Influenza Virus Vaccine Recomb Quad IM, Preserv and ABX Free 18-64 YRS 2020-05-16 00:00:00 Completed [facility] Influenza Virus Vaccine Recomb Quad IM, Preserv and ABX Free 18-64 YRS 2020-05-16 00:00:00 Completed [facility] Influenza Virus Vaccine Recomb Quad IM, Preserv and ABX Free 18-64 YRS 2020-05-16 00:00:00 Completed [facility] Influenza Virus Vaccine Recomb Quad IM, Preserv and ABX Free 18-64 YRS 2020-05-16 00:00:00 Completed [facility] Influenza Virus Vaccine Recomb Quad IM, Preserv and ABX Free 18-64 YRS 2020-05-16 00:00:00 Completed [facility] Influenza Virus Vaccine Recomb Quad IM, Preserv and ABX Free 18-64 YRS 2020-05-16 00:00:00 Completed [facility] Influenza Virus Vaccine Recomb Quad IM, Preserv and ABX Free 18-64 YRS 2020-05-16 00:00:00 Completed [facility] Influenza Virus Vaccine Recomb Quad IM, Preserv and ABX Free 18-64 YRS 2020-05-16 00:00:00 Completed [facility] Influenza Virus Vaccine Recomb Quad IM, Preserv and ABX Free 18-64 YRS 2020-05-16 00:00:00 Completed [facility] Influenza Virus Vaccine Recomb Quad IM, Preserv and ABX Free 18-64 YRS 2020-05-16 00:00:00 Completed [facility] Influenza Virus Vaccine Recomb Quad IM, Preserv and ABX Free 18-64 YRS 2020-05-16 00:00:00 Completed [facility] Influenza Virus Vaccine Recomb Quad IM, Preserv and ABX Free 18-64 YRS 2020-05-16 00:00:00 Completed [facility] Influenza Virus Vaccine Recomb Quad IM, Preserv and ABX Free 18-64 YRS 2020-05-16 00:00:00 Completed [facility] Influenza Virus Vaccine Recomb Quad IM, Preserv and ABX Free 18-64 YRS 2020-05-16 00:00:00 Completed [facility] Influenza Virus Vaccine Recomb Quad IM, Preserv and ABX Free 18-64 YRS 2020-05-16 00:00:00 Completed [facility] Influenza Virus Vaccine Recomb Quad IM, Preserv and ABX Free 18-64 YRS 2020-05-16 00:00:00 Completed [facility] Influenza Virus Vaccine Recomb Quad IM, Preserv and ABX Free 18-64 YRS 2020-05-16 00:00:00 Completed [facility] Influenza Virus Vaccine Recomb Quad IM, Preserv and ABX Free 18-64 YRS 2020-05-16 00:00:00 Completed [facility] Influenza Virus Vaccine Recomb Quad IM, Preserv and ABX Free 18-64 YRS 2020-05-16 00:00:00 Completed [facility] Influenza Virus Vaccine Recomb Quad IM, Preserv and ABX Free 18-64 YRS 2020-05-16 00:00:00 Completed [facility] Influenza Virus Vaccine Recomb Quad IM, Preserv and ABX Free 18-64 YRS 2020-05-16 00:00:00 Completed [facility] Influenza Virus Vaccine Recomb Quad IM, Preserv and ABX Free 18-64 YRS 2020-05-16 00:00:00 Completed [facility] Influenza Virus Vaccine Recomb Quad IM, Preserv and ABX Free 18-64 YRS 2020-05-16 00:00:00 Completed [facility] TDAP (ADACEL) VACCINE 2019-05-21 00:00:00 Completed [facility] TDAP (ADACEL) VACCINE 2019-05-21 00:00:00 Completed [facility] TDAP (ADACEL) VACCINE 2019-05-21 00:00:00 Completed [facility] TDAP (ADACEL) VACCINE 2019-05-21 00:00:00 Completed [facility] TDAP (ADACEL) VACCINE 2019-05-21 00:00:00 Completed [facility] TDAP (ADACEL) VACCINE 2019-05-21 00:00:00 Completed [facility] TDAP (ADACEL) VACCINE 2019-05-21 00:00:00 Completed [facility] TDAP (ADACEL) VACCINE 2019-05-21 00:00:00 Completed [facility] TDAP (ADACEL) VACCINE 2019-05-21 00:00:00 Completed [facility] TDAP (ADACEL) VACCINE 2019-05-21 00:00:00 Completed [facility] TDAP (ADACEL) VACCINE 2019-05-21 00:00:00 Completed [facility] TDAP (ADACEL) VACCINE 2019-05-21 00:00:00 Completed [facility] TDAP (ADACEL) VACCINE 2019-05-21 00:00:00 Completed [facility] TDAP (ADACEL) VACCINE 2019-05-21 00:00:00 Completed [facility] TDAP (ADACEL) VACCINE 2019-05-21 00:00:00 Completed [facility] TDAP (ADACEL) VACCINE 2019-05-21 00:00:00 Completed [facility] TDAP (ADACEL) VACCINE 2019-05-21 00:00:00 Completed [facility] TDAP (ADACEL) VACCINE 2019-05-21 00:00:00 Completed [facility] TDAP (ADACEL) VACCINE 2019-05-21 00:00:00 Completed [facility] TDAP (ADACEL) VACCINE 2019-05-21 00:00:00 Completed [facility] TDAP (ADACEL) VACCINE 2019-05-21 00:00:00 Completed [facility] TDAP (ADACEL) VACCINE 2019-05-21 00:00:00 Completed [facility] TDAP (ADACEL) VACCINE 2019-05-21 00:00:00 Completed [facility] TDAP (ADACEL) VACCINE 2019-05-21 00:00:00 Completed [facility] TDAP (ADACEL) VACCINE 2019-05-21 00:00:00 Completed [facility] TDAP (ADACEL) VACCINE 2019-05-21 00:00:00 Completed [facility] TDAP (ADACEL) VACCINE 2019-05-21 00:00:00 Completed [facility] TDAP (ADACEL) VACCINE 2019-05-21 00:00:00 Completed [facility] TDAP (ADACEL) VACCINE 2019-05-21 00:00:00 Completed [facility] TDAP (ADACEL) VACCINE 2019-05-21 00:00:00 Completed [facility] TDAP (ADACEL) VACCINE 2019-05-21 00:00:00 Completed [facility] TDAP (ADACEL) VACCINE 2019-05-21 00:00:00 Completed [facility] TDAP (ADACEL) VACCINE 2019-05-21 00:00:00 Completed [facility] TDAP (ADACEL) VACCINE 2019-05-21 00:00:00 Completed [facility] TDAP (ADACEL) VACCINE 2019-05-21 00:00:00 Completed [facility] TDAP (ADACEL) VACCINE 2019-05-21 00:00:00 Completed [facility] TDAP (ADACEL) VACCINE 2019-05-21 00:00:00 Completed [facility] TDAP (ADACEL) VACCINE 2019-05-21 00:00:00 Completed [facility] TDAP (ADACEL) VACCINE 2019-05-21 00:00:00 Completed [facility] TDAP (ADACEL) VACCINE 2019-05-21 00:00:00 Completed [facility] TDAP (ADACEL) VACCINE 2019-05-21 00:00:00 Completed [facility] TDAP (ADACEL) VACCINE 2019-05-21 00:00:00 Completed [facility] TDAP (ADACEL) VACCINE 2019-05-21 00:00:00 Completed [facility] TDAP (ADACEL) VACCINE 2019-05-21 00:00:00 Completed [facility] TDAP (ADACEL) VACCINE 2019-05-21 00:00:00 Completed [facility] TDAP (ADACEL) VACCINE 2019-05-21 00:00:00 Completed [facility] TDAP (ADACEL) VACCINE 2019-05-21 00:00:00 Completed [facility] TDAP (ADACEL) VACCINE 2019-05-21 00:00:00 Completed [facility] TDAP (ADACEL) VACCINE 2019-05-21 00:00:00 Completed [facility] TDAP (ADACEL) VACCINE 2019-05-21 00:00:00 Completed [facility] TDAP (ADACEL) VACCINE 2019-05-21 00:00:00 Completed [facility] TDAP (ADACEL) VACCINE 2019-05-21 00:00:00 Completed [facility] TDAP (ADACEL) VACCINE 2019-05-21 00:00:00 Completed [facility] TDAP (ADACEL) VACCINE 2019-05-21 00:00:00 Completed [facility] TDAP (ADACEL) VACCINE 2019-05-21 00:00:00 Completed [facility] TDAP (ADACEL) VACCINE 2019-05-21 00:00:00 Completed [facility] TDAP (ADACEL) VACCINE 2019-05-21 00:00:00 Completed [facility] TDAP (ADACEL) VACCINE 2019-05-21 00:00:00 Completed [facility] TDAP (ADACEL) VACCINE 2019-05-21 00:00:00 Completed [facility] TDAP (ADACEL) VACCINE 2019-05-21 00:00:00 Completed [facility] TDAP (ADACEL) VACCINE 2019-05-21 00:00:00 Completed [facility] TDAP (ADACEL) VACCINE 2019-05-21 00:00:00 Completed [facility] TDAP (ADACEL) VACCINE 2019-05-21 00:00:00 Completed [facility] Influenza Virus Vaccine Quad .5 mL IM 6+ MO 2019-02-06 00:00:00 Completed [facility] Influenza Virus Vaccine Quad .5 mL IM 6+ MO 2019-02-06 00:00:00 Completed [facility] Influenza Virus Vaccine Quad .5 mL IM 6+ MO 2019-02-06 00:00:00 Completed [facility] Influenza Virus Vaccine Quad .5 mL IM 6+ MO 2019-02-06 00:00:00 Completed [facility] Influenza Virus Vaccine Quad .5 mL IM 6+ MO 2019-02-06 00:00:00 Completed [facility] Influenza Virus Vaccine Quad .5 mL IM 6+ MO 2019-02-06 00:00:00 Completed [facility] Influenza Virus Vaccine Quad .5 mL IM 6+ MO 2019-02-06 00:00:00 Completed [facility] Influenza Virus Vaccine Quad .5 mL IM 6+ MO 2019-02-06 00:00:00 Completed [facility] Influenza Virus Vaccine Quad .5 mL IM 6+ MO 2019-02-06 00:00:00 Completed [facility] Influenza Virus Vaccine Quad .5 mL IM 6+ MO 2019-02-06 00:00:00 Completed [facility] Influenza Virus Vaccine Quad .5 mL IM 6+ MO 2019-02-06 00:00:00 Completed [facility] Influenza Virus Vaccine Quad .5 mL IM 6+ MO 2019-02-06 00:00:00 Completed [facility] Influenza Virus Vaccine Quad .5 mL IM 6+ MO 2019-02-06 00:00:00 Completed [facility] Influenza Virus Vaccine Quad .5 mL IM 6+ MO 2019-02-06 00:00:00 Completed [facility] Influenza Virus Vaccine Quad .5 mL IM 6+ MO 2019-02-06 00:00:00 Completed [facility] Influenza Virus Vaccine Quad .5 mL IM 6+ MO 2019-02-06 00:00:00 Completed [facility] Influenza Virus Vaccine Quad .5 mL IM 6+ MO 2019-02-06 00:00:00 Completed [facility] Influenza Virus Vaccine Quad .5 mL IM 6+ MO 2019-02-06 00:00:00 Completed [facility] Influenza Virus Vaccine Quad .5 mL IM 6+ MO 2019-02-06 00:00:00 Completed [facility] Influenza Virus Vaccine Quad .5 mL IM 6+ MO 2019-02-06 00:00:00 Completed [facility] Influenza Virus Vaccine Quad .5 mL IM 6+ MO 2019-02-06 00:00:00 Completed [facility] Influenza Virus Vaccine Quad .5 mL IM 6+ MO 2019-02-06 00:00:00 Completed [facility] Influenza Virus Vaccine Quad .5 mL IM 6+ MO 2019-02-06 00:00:00 Completed [facility] Influenza Virus Vaccine Quad .5 mL IM 6+ MO 2019-02-06 00:00:00 Completed [facility] Influenza Virus Vaccine Quad .5 mL IM 6+ MO 2019-02-06 00:00:00 Completed [facility] Influenza Virus Vaccine Quad .5 mL IM 6+ MO 2019-02-06 00:00:00 Completed [facility] Influenza Virus Vaccine Quad .5 mL IM 6+ MO 2019-02-06 00:00:00 Completed [facility] Influenza Virus Vaccine Quad .5 mL IM 6+ MO 2019-02-06 00:00:00 Completed [facility] Influenza Virus Vaccine Quad .5 mL IM 6+ MO 2019-02-06 00:00:00 Completed [facility] Influenza Virus Vaccine Quad .5 mL IM 6+ MO 2019-02-06 00:00:00 Completed [facility] Influenza Virus Vaccine Quad .5 mL IM 6+ MO 2019-02-06 00:00:00 Completed [facility] Influenza Virus Vaccine Quad .5 mL IM 6+ MO 2019-02-06 00:00:00 Completed [facility] Influenza Virus Vaccine Quad .5 mL IM 6+ MO 2019-02-06 00:00:00 Completed [facility] Influenza Virus Vaccine Quad .5 mL IM 6+ MO 2019-02-06 00:00:00 Completed [facility] Influenza Virus Vaccine Quad .5 mL IM 6+ MO 2019-02-06 00:00:00 Completed [facility] Influenza Virus Vaccine Quad .5 mL IM 6+ MO 2019-02-06 00:00:00 Completed [facility] Influenza Virus Vaccine Quad .5 mL IM 6+ MO 2019-02-06 00:00:00 Completed [facility] Influenza Virus Vaccine Quad .5 mL IM 6+ MO 2019-02-06 00:00:00 Completed [facility] Influenza Virus Vaccine Quad .5 mL IM 6+ MO 2019-02-06 00:00:00 Completed [facility] Influenza Virus Vaccine Quad .5 mL IM 6+ MO 2019-02-06 00:00:00 Completed [facility] Influenza Virus Vaccine Quad .5 mL IM 6+ MO 2019-02-06 00:00:00 Completed [facility] Influenza Virus Vaccine Quad .5 mL IM 6+ MO 2019-02-06 00:00:00 Completed [facility] Influenza Virus Vaccine Quad .5 mL IM 6+ MO 2019-02-06 00:00:00 Completed [facility] Influenza Virus Vaccine Quad .5 mL IM 6+ MO 2019-02-06 00:00:00 Completed [facility] Influenza Virus Vaccine Quad .5 mL IM 6+ MO 2019-02-06 00:00:00 Completed [facility] Influenza Virus Vaccine Quad .5 mL IM 6+ MO 2019-02-06 00:00:00 Completed [facility] Influenza Virus Vaccine Quad .5 mL IM 6+ MO 2019-02-06 00:00:00 Completed [facility] Influenza Virus Vaccine Quad .5 mL IM 6+ MO 2019-02-06 00:00:00 Completed [facility] Influenza Virus Vaccine Quad .5 mL IM 6+ MO 2019-02-06 00:00:00 Completed [facility] Influenza Virus Vaccine Quad .5 mL IM 6+ MO 2019-02-06 00:00:00 Completed [facility] Influenza Virus Vaccine Quad .5 mL IM 6+ MO 2019-02-06 00:00:00 Completed [facility] Influenza Virus Vaccine Quad .5 mL IM 6+ MO 2019-02-06 00:00:00 Completed [facility] Influenza Virus Vaccine Quad .5 mL IM 6+ MO 2019-02-06 00:00:00 Completed [facility] Influenza Virus Vaccine Quad .5 mL IM 6+ MO 2019-02-06 00:00:00 Completed [facility] Influenza Virus Vaccine Quad .5 mL IM 6+ MO 2019-02-06 00:00:00 Completed [facility] Influenza Virus Vaccine Quad .5 mL IM 6+ MO 2019-02-06 00:00:00 Completed [facility] Influenza Virus Vaccine Quad .5 mL IM 6+ MO 2019-02-06 00:00:00 Completed [facility] Influenza Virus Vaccine Quad .5 mL IM 6+ MO 2019-02-06 00:00:00 Completed [facility] Influenza Virus Vaccine Quad .5 mL IM 6+ MO 2019-02-06 00:00:00 Completed [facility] Influenza Virus Vaccine Quad .5 mL IM 6+ MO 2019-02-06 00:00:00 Completed [facility] Influenza Virus Vaccine Quad .5 mL IM 6+ MO (FLUZONE/FLULAVAL/F LUARIX) 2019-02-06 00:00:00 Completed [facility] Influenza Virus Vaccine Quad .5 mL IM 6+ MO (FLUZONE/FLULAVAL/F LUARIX) 2019-02-06 00:00:00 Completed [facility] Influenza Virus Vaccine Quad .5 mL IM 6+ MO (FLUZONE/FLULAVAL/F LUARIX) 2019-02-06 00:00:00 Completed [facility] Influenza Virus Vaccine Quad .5 mL IM 6+ MO (FLUZONE/FLULAVAL/F LUARIX) Unknown Completed [facility] TDAP (ADACEL) VACCINE Unknown Completed [facility] Influenza Virus Vaccine Recomb Quad IM, Preserv and ABX Free 18-64 YRS Unknown Completed [facility] Influenza Virus Vaccine Unknown Completed [facility] Influenza Virus Vaccine Unknown Completed [facility] Influenza Virus Vaccine Quad IM, Preserv and ABX Free 6 MO-64 YRS (FLUCELVAX) Unknown Completed [facility] Influenza Virus Vaccine Quad .5 mL IM 6+ MO (FLUZONE/FLULAVAL/F LUARIX) Unknown Completed [facility] Influenza Virus Vaccine Quad .5 mL IM 6+ MO (FLUZONE/FLULAVAL/F LUARIX) Unknown Completed [facility] Influenza Virus Vaccine Quad .5 mL IM 6+ MO (FLUZONE/FLULAVAL/F LUARIX) Unknown Completed [facility] TDAP (ADACEL) VACCINE Unknown Completed [facility] Influenza Virus Vaccine Recomb Quad IM, Preserv and ABX Free 18-64 YRS Unknown Completed [facility] Influenza Virus Vaccine Unknown Completed [facility] Influenza Virus Vaccine Unknown Completed [facility] Influenza Virus Vaccine Quad IM, Preserv and ABX Free 6 MO-64 YRS (FLUCELVAX) Unknown Completed [facility] Influenza Virus Vaccine Quad .5 mL IM 6+ MO (FLUZONE/FLULAVAL/F LUARIX) Unknown Completed [facility] Influenza Virus Vaccine Quad .5 mL IM 6+ MO (FLUZONE/FLULAVAL/F LUARIX) Unknown Completed [facility] Influenza Virus Vaccine Quad .5 mL IM 6+ MO (FLUZONE/FLULAVAL/F LUARIX) Unknown Completed [facility] TDAP (ADACEL) VACCINE Unknown Completed [facility] Influenza Virus Vaccine Recomb Quad IM, Preserv and ABX Free 18-64 YRS Unknown Completed [facility] Influenza Virus Vaccine Unknown Completed [facility] Influenza Virus Vaccine Unknown Completed [facility] Influenza Virus Vaccine Quad .5 mL IM 6+ MO (FLUZONE/FLULAVAL/F LUARIX) Unknown Completed [facility] Influenza Virus Vaccine Quad .5 mL IM 6+ MO (FLUZONE/FLULAVAL/F LUARIX) Unknown Completed [facility] TDAP (ADACEL) VACCINE Unknown Completed [facility] Influenza Virus Vaccine Recomb Quad IM, Preserv and ABX Free 18-64 YRS Unknown Completed [facility] Influenza Virus Vaccine Unknown Completed [facility] Influenza Virus Vaccine Unknown Completed [facility] Influenza Virus Vaccine Quad .5 mL IM 6+ MO (FLUZONE/FLULAVAL/F LUARIX) Unknown Completed [facility] Influenza Virus Vaccine Quad .5 mL IM 6+ MO (FLUZONE/FLULAVAL/F LUARIX) Unknown Completed [facility] TDAP (ADACEL) VACCINE Unknown Completed [facility] Influenza Virus Vaccine Recomb Quad IM, Preserv and ABX Free 18-64 YRS Unknown Completed [facility] Influenza Virus Vaccine Unknown Completed [facility] Influenza Virus Vaccine Unknown Completed [facility] Influenza Virus Vaccine Quad .5 mL IM 6+ MO (FLUZONE/FLULAVAL/F LUARIX) Unknown Completed [facility] Influenza Virus Vaccine Quad .5 mL IM 6+ MO (FLUZONE/FLULAVAL/F LUARIX) Unknown Completed [facility] TDAP (ADACEL) VACCINE Unknown Completed [facility] Influenza Virus Vaccine Recomb Quad IM, Preserv and ABX Free 18-64 YRS Unknown Completed [facility] Influenza Virus Vaccine Unknown Completed [facility] Influenza Virus Vaccine Unknown Completed [facility] Influenza Virus Vaccine Quad .5 mL IM 6+ MO (FLUZONE/FLULAVAL/F LUARIX) Unknown Completed [facility] Influenza Virus Vaccine Quad .5 mL IM 6+ MO (FLUZONE/FLULAVAL/F LUARIX) Unknown Completed [facility] TDAP (ADACEL) VACCINE Unknown Completed [facility] Influenza Virus Vaccine Recomb Quad IM, Preserv and ABX Free 18-64 YRS Unknown Completed [facility] Influenza Virus Vaccine Unknown Completed [facility] Influenza Virus Vaccine Unknown Completed [facility] Influenza Virus Vaccine Quad .5 mL IM 6+ MO (FLUZONE/FLULAVAL/F LUARIX) Unknown Completed [facility] Influenza Virus Vaccine Quad .5 mL IM 6+ MO (FLUZONE/FLULAVAL/F LUARIX) Unknown Completed [facility] TDAP (ADACEL) VACCINE Unknown Completed [facility] Influenza Virus Vaccine Recomb Quad IM, Preserv and ABX Free 18-64 YRS Unknown Completed [facility] Influenza Virus Vaccine Unknown Completed [facility] Influenza Virus Vaccine Unknown Completed [facility] Influenza Virus Vaccine Quad .5 mL IM 6+ MO (FLUZONE/FLULAVAL/F LUARIX) Unknown Completed [facility] Influenza Virus Vaccine Quad .5 mL IM 6+ MO (FLUZONE/FLULAVAL/F LUARIX) Unknown Completed [facility] TDAP (ADACEL) VACCINE Unknown Completed [facility] Influenza Virus Vaccine Recomb Quad IM, Preserv and ABX Free 18-64 YRS Unknown Completed [facility] Influenza Virus Vaccine Unknown Completed [facility] Influenza Virus Vaccine Unknown Completed [facility] Influenza Virus Vaccine Quad .5 mL IM 6+ MO (FLUZONE/FLULAVAL/F LUARIX) Unknown Completed [facility] Influenza Virus Vaccine Quad .5 mL IM 6+ MO (FLUZONE/FLULAVAL/F LUARIX) Unknown Completed [facility] TDAP (ADACEL) VACCINE Unknown Completed [facility] Influenza Virus Vaccine Recomb Quad IM, Preserv and ABX Free 18-64 YRS Unknown Completed [facility] Influenza Virus Vaccine Unknown Completed [facility] Influenza Virus Vaccine Unknown Completed [facility] Influenza Virus Vaccine Quad .5 mL IM 6+ MO (FLUZONE/FLULAVAL/F LUARIX) Unknown Completed [facility] Influenza Virus Vaccine Quad .5 mL IM 6+ MO (FLUZONE/FLULAVAL/F LUARIX) Unknown Completed [facility] TDAP (ADACEL) VACCINE Unknown Completed [facility] Influenza Virus Vaccine Recomb Quad IM, Preserv and ABX Free 18-64 YRS Unknown Completed [facility] Influenza Virus Vaccine Unknown Completed [facility] Influenza Virus Vaccine Unknown Completed [facility] Influenza Virus Vaccine Quad .5 mL IM 6+ MO (FLUZONE/FLULAVAL/F LUARIX) Unknown Completed [facility] Influenza Virus Vaccine Quad .5 mL IM 6+ MO (FLUZONE/FLULAVAL/F LUARIX) Unknown Completed [facility] TDAP (ADACEL) VACCINE Unknown Completed [facility] Influenza Virus Vaccine Recomb Quad IM, Preserv and ABX Free 18-64 YRS Unknown Completed [facility] Influenza Virus Vaccine Unknown Completed [facility] Influenza Virus Vaccine Unknown Completed [facility] Influenza Virus Vaccine Quad .5 mL IM 6+ MO (FLUZONE/FLULAVAL/F LUARIX) Unknown Completed [facility] Influenza Virus Vaccine Quad .5 mL IM 6+ MO (FLUZONE/FLULAVAL/F LUARIX) Unknown Completed [facility] TDAP (ADACEL) VACCINE Unknown Completed [facility] Influenza Virus Vaccine Recomb Quad IM, Preserv and ABX Free 18-64 YRS Unknown Completed [facility] Influenza Virus Vaccine Unknown Completed [facility] Influenza Virus Vaccine Unknown Completed [facility] Influenza Virus Vaccine Quad .5 mL IM 6+ MO (FLUZONE/FLULAVAL/F LUARIX) Unknown Completed [facility] Influenza Virus Vaccine Quad .5 mL IM 6+ MO (FLUZONE/FLULAVAL/F LUARIX) Unknown Completed [facility] TDAP (ADACEL) VACCINE Unknown Completed [facility] Influenza Virus Vaccine Recomb Quad IM, Preserv and ABX Free 18-64 YRS Unknown Completed [facility] Influenza Virus Vaccine Unknown Completed [facility] Influenza Virus Vaccine Unknown Completed [facility] Influenza Virus Vaccine Quad .5 mL IM 6+ MO (FLUZONE/FLULAVAL/F LUARIX) Unknown Completed [facility] Influenza Virus Vaccine Quad .5 mL IM 6+ MO (FLUZONE/FLULAVAL/F LUARIX) Unknown Completed [facility] TDAP (ADACEL) VACCINE Unknown Completed [facility] Influenza Virus Vaccine Recomb Quad IM, Preserv and ABX Free 18-64 YRS Unknown Completed [facility] Influenza Virus Vaccine Unknown Completed [facility] Influenza Virus Vaccine Unknown Completed [facility] Influenza Virus Vaccine Quad .5 mL IM 6+ MO (FLUZONE/FLULAVAL/F LUARIX) Unknown Completed [facility] Influenza Virus Vaccine Quad .5 mL IM 6+ MO (FLUZONE/FLULAVAL/F LUARIX) Unknown Completed [facility] TDAP (ADACEL) VACCINE Unknown Completed [facility] Influenza Virus Vaccine Recomb Quad IM, Preserv and ABX Free 18-64 YRS Unknown Completed [facility] Influenza Virus Vaccine Unknown Completed [facility] Influenza Virus Vaccine Unknown Completed [facility] Influenza Virus Vaccine Quad .5 mL IM 6+ MO (FLUZONE/FLULAVAL/F LUARIX) Unknown Completed [facility] Influenza Virus Vaccine Quad .5 mL IM 6+ MO (FLUZONE/FLULAVAL/F LUARIX) Unknown Completed [facility] TDAP (ADACEL) VACCINE Unknown Completed [facility] Influenza Virus Vaccine Recomb Quad IM, Preserv and ABX Free 18-64 YRS Unknown Completed [facility] Influenza Virus Vaccine Unknown Completed [facility] Influenza Virus Vaccine Unknown Completed [facility] Influenza Virus Vaccine Quad .5 mL IM 6+ MO (FLUZONE/FLULAVAL/F LUARIX) Unknown Completed [facility] Influenza Virus Vaccine Quad .5 mL IM 6+ MO (FLUZONE/FLULAVAL/F LUARIX) Unknown Completed [facility] TDAP (ADACEL) VACCINE Unknown Completed [facility] Influenza Virus Vaccine Recomb Quad IM, Preserv and ABX Free 18-64 YRS Unknown Completed [facility] Influenza Virus Vaccine Unknown Completed [facility] Influenza Virus Vaccine Unknown Completed [facility] Influenza Virus Vaccine Quad .5 mL IM 6+ MO (FLUZONE/FLULAVAL/F LUARIX) Unknown Completed [facility] Influenza Virus Vaccine Quad .5 mL IM 6+ MO (FLUZONE/FLULAVAL/F LUARIX) Unknown Completed [facility] TDAP (ADACEL) VACCINE Unknown Completed [facility] Influenza Virus Vaccine Recomb Quad IM, Preserv and ABX Free 18-64 YRS Unknown Completed [facility] Influenza Virus Vaccine Unknown Completed [facility] Influenza Virus Vaccine Quad .5 mL IM 6+ MO (FLUZONE/FLULAVAL/F LUARIX) Unknown Completed [facility] TDAP (ADACEL) VACCINE Unknown Completed [facility] Influenza Virus Vaccine Recomb Quad IM, Preserv and ABX Free 18-64 YRS Unknown Completed [facility] Influenza Virus Vaccine Unknown Completed [facility] Influenza Virus Vaccine Quad .5 mL IM 6+ MO (FLUZONE/FLULAVAL/F LUARIX) Unknown Completed [facility] TDAP (ADACEL) VACCINE Unknown Completed [facility] Influenza Virus Vaccine Recomb Quad IM, Preserv and ABX Free 18-64 YRS Unknown Completed [facility] Influenza Virus Vaccine Unknown Completed [facility] Influenza Virus Vaccine Quad .5 mL IM 6+ MO (FLUZONE/FLULAVAL/F LUARIX) Unknown Completed [facility] TDAP (ADACEL) VACCINE Unknown Completed [facility] Influenza Virus Vaccine Recomb Quad IM, Preserv and ABX Free 18-64 YRS Unknown Completed [facility] Influenza Virus Vaccine Unknown Completed [facility] Influenza Virus Vaccine Quad .5 mL IM 6+ MO (FLUZONE/FLULAVAL/F LUARIX) Unknown Completed [facility] TDAP (ADACEL) VACCINE Unknown Completed [facility] Influenza Virus Vaccine Recomb Quad IM, Preserv and ABX Free 18-64 YRS Unknown Completed [facility] Influenza Virus Vaccine Unknown Completed [facility] Influenza Virus Vaccine Quad .5 mL IM 6+ MO (FLUZONE/FLULAVAL/F LUARIX) Unknown Completed [facility] TDAP (ADACEL) VACCINE Unknown Completed [facility] Influenza Virus Vaccine Recomb Quad IM, Preserv and ABX Free 18-64 YRS Unknown Completed [facility] Influenza Virus Vaccine Unknown Completed [facility] Influenza Virus Vaccine Quad .5 mL IM 6+ MO (FLUZONE/FLULAVAL/F LUARIX) Unknown Completed [facility] TDAP (ADACEL) VACCINE Unknown Completed [facility] Influenza Virus Vaccine Recomb Quad IM, Preserv and ABX Free 18-64 YRS Unknown Completed [facility] Influenza Virus Vaccine Unknown Completed [facility] Influenza Virus Vaccine Quad .5 mL IM 6+ MO (FLUZONE/FLULAVAL/F LUARIX) Unknown Completed [facility] TDAP (ADACEL) VACCINE Unknown Completed [facility] Influenza Virus Vaccine Recomb Quad IM, Preserv and ABX Free 18-64 YRS Unknown Completed [facility] Influenza Virus Vaccine Unknown Completed [facility] Influenza Virus Vaccine Quad .5 mL IM 6+ MO (FLUZONE/FLULAVAL/F LUARIX) Unknown Completed [facility] TDAP (ADACEL) VACCINE Unknown Completed [facility] Influenza Virus Vaccine Recomb Quad IM, Preserv and ABX Free 18-64 YRS Unknown Completed [facility] Influenza Virus Vaccine Unknown Completed [facility] Influenza Virus Vaccine Quad .5 mL IM 6+ MO (FLUZONE/FLULAVAL/F LUARIX) Unknown Completed [facility] TDAP (ADACEL) VACCINE Unknown Completed [facility] Influenza Virus Vaccine Recomb Quad IM, Preserv and ABX Free 18-64 YRS Unknown Completed [facility] Influenza Virus Vaccine Unknown Completed [facility] Influenza Virus Vaccine Quad .5 mL IM 6+ MO (FLUZONE/FLULAVAL/F LUARIX) Unknown Completed [facility] TDAP (ADACEL) VACCINE Unknown Completed [facility] Influenza Virus Vaccine Recomb Quad IM, Preserv and ABX Free 18-64 YRS Unknown Completed [facility] Influenza Virus Vaccine Unknown Completed [facility] Influenza Virus Vaccine Quad .5 mL IM 6+ MO (FLUZONE/FLULAVAL/F LUARIX) Unknown Completed [facility] TDAP (ADACEL) VACCINE Unknown Completed [facility] Influenza Virus Vaccine Recomb Quad IM, Preserv and ABX Free 18-64 YRS Unknown Completed [facility] Influenza Virus Vaccine Unknown Completed [facility] Influenza Virus Vaccine Quad .5 mL IM 6+ MO (FLUZONE/FLULAVAL/F LUARIX) Unknown Completed [facility] TDAP (ADACEL) VACCINE Unknown Completed [facility] Influenza Virus Vaccine Recomb Quad IM, Preserv and ABX Free 18-64 YRS Unknown Completed [facility] Influenza Virus Vaccine Unknown Completed [facility] Influenza Virus Vaccine Quad .5 mL IM 6+ MO (FLUZONE/FLULAVAL/F LUARIX) Unknown Completed [facility] TDAP (ADACEL) VACCINE Unknown Completed [facility] Influenza Virus Vaccine Recomb Quad IM, Preserv and ABX Free 18-64 YRS Unknown Completed [facility] Influenza Virus Vaccine Unknown Completed [facility] Influenza Virus Vaccine Quad .5 mL IM 6+ MO (FLUZONE/FLULAVAL/F LUARIX) Unknown Completed [facility] TDAP (ADACEL) VACCINE Unknown Completed [facility] Influenza Virus Vaccine Recomb Quad IM, Preserv and ABX Free 18-64 YRS Unknown Completed [facility] Influenza Virus Vaccine Unknown Completed [facility] Influenza Virus Vaccine Quad .5 mL IM 6+ MO (FLUZONE/FLULAVAL/F LUARIX) Unknown Completed [facility] TDAP (ADACEL) VACCINE Unknown Completed [facility] Influenza Virus Vaccine Recomb Quad IM, Preserv and ABX Free 18-64 YRS Unknown Completed [facility] Influenza Virus Vaccine Unknown Completed [facility] Influenza Virus Vaccine Quad .5 mL IM 6+ MO (FLUZONE/FLULAVAL/F LUARIX) Unknown Completed [facility] TDAP (ADACEL) VACCINE Unknown Completed [facility] Influenza Virus Vaccine Recomb Quad IM, Preserv and ABX Free 18-64 YRS Unknown Completed [facility] Influenza Virus Vaccine Unknown Completed [facility] Influenza Virus Vaccine Quad .5 mL IM 6+ MO (FLUZONE/FLULAVAL/F LUARIX) Unknown Completed [facility] TDAP (ADACEL) VACCINE Unknown Completed [facility] Influenza Virus Vaccine Recomb Quad IM, Preserv and ABX Free 18-64 YRS Unknown Completed [facility] Influenza Virus Vaccine Unknown Completed [facility] Influenza Virus Vaccine Quad .5 mL IM 6+ MO (FLUZONE/FLULAVAL/F LUARIX) Unknown Completed [facility] TDAP (ADACEL) VACCINE Unknown Completed [facility] Influenza Virus Vaccine Recomb Quad IM, Preserv and ABX Free 18-64 YRS Unknown Completed [facility] Influenza Virus Vaccine Unknown Completed [facility] Influenza Virus Vaccine Quad .5 mL IM 6+ MO (FLUZONE/FLULAVAL/F LUARIX) Unknown Completed [facility] TDAP (ADACEL) VACCINE Unknown Completed [facility] Influenza Virus Vaccine Recomb Quad IM, Preserv and ABX Free 18-64 YRS Unknown Completed [facility] Influenza Virus Vaccine Unknown Completed [facility] Influenza Virus Vaccine Quad .5 mL IM 6+ MO (FLUZONE/FLULAVAL/F LUARIX) Unknown Completed [facility] TDAP (ADACEL) VACCINE Unknown Completed [facility] Influenza Virus Vaccine Recomb Quad IM, Preserv and ABX Free 18-64 YRS Unknown Completed [facility] Influenza Virus Vaccine Unknown Completed [facility] Influenza Virus Vaccine Quad .5 mL IM 6+ MO (FLUZONE/FLULAVAL/F LUARIX) Unknown Completed [facility] TDAP (ADACEL) VACCINE Unknown Completed [facility] Influenza Virus Vaccine Recomb Quad IM, Preserv and ABX Free 18-64 YRS Unknown Completed [facility] Influenza Virus Vaccine Unknown Completed [facility] Influenza Virus Vaccine Quad .5 mL IM 6+ MO (FLUZONE/FLULAVAL/F LUARIX) Unknown Completed [facility] TDAP (ADACEL) VACCINE Unknown Completed [facility] Influenza Virus Vaccine Recomb Quad IM, Preserv and ABX Free 18-64 YRS Unknown Completed [facility] Influenza Virus Vaccine Unknown Completed [facility] Influenza Virus Vaccine Quad .5 mL IM 6+ MO (FLUZONE/FLULAVAL/F LUARIX) Unknown Completed [facility] TDAP (ADACEL) VACCINE Unknown Completed [facility] Influenza Virus Vaccine Recomb Quad IM, Preserv and ABX Free 18-64 YRS Unknown Completed [facility] Influenza Virus Vaccine Unknown Completed [facility] Influenza Virus Vaccine Quad .5 mL IM 6+ MO (FLUZONE/FLULAVAL/F LUARIX) Unknown Completed [facility] TDAP (ADACEL) VACCINE Unknown Completed [facility] Influenza Virus Vaccine Recomb Quad IM, Preserv and ABX Free 18-64 YRS Unknown Completed [facility] Influenza Virus Vaccine Unknown Completed [facility] Influenza Virus Vaccine Quad .5 mL IM 6+ MO (FLUZONE/FLULAVAL/F LUARIX) Unknown Completed [facility] TDAP (ADACEL) VACCINE Unknown Completed [facility] Influenza Virus Vaccine Recomb Quad IM, Preserv and ABX Free 18-64 YRS Unknown Completed [facility] Influenza Virus Vaccine Unknown Completed [facility] Influenza Virus Vaccine Quad .5 mL IM 6+ MO (FLUZONE/FLULAVAL/F LUARIX) Unknown Completed [facility] TDAP (ADACEL) VACCINE Unknown Completed [facility] Influenza Virus Vaccine Recomb Quad IM, Preserv and ABX Free 18-64 YRS Unknown Completed [facility] Influenza Virus Vaccine Unknown Completed [facility] Influenza Virus Vaccine Quad .5 mL IM 6+ MO (FLUZONE/FLULAVAL/F LUARIX) Unknown Completed [facility] TDAP (ADACEL) VACCINE Unknown Completed [facility] Influenza Virus Vaccine Recomb Quad IM, Preserv and ABX Free 18-64 YRS Unknown Completed [facility] Influenza Virus Vaccine Unknown Completed [facility] Influenza Virus Vaccine Quad .5 mL IM 6+ MO (FLUZONE/FLULAVAL/F LUARIX) Unknown Completed [facility] TDAP (ADACEL) VACCINE Unknown Completed [facility] Influenza Virus Vaccine Recomb Quad IM, Preserv and ABX Free 18-64 YRS Unknown Completed [facility] Influenza Virus Vaccine Unknown Completed [facility] Influenza Virus Vaccine Quad .5 mL IM 6+ MO (FLUZONE/FLULAVAL/F LUARIX) Unknown Completed [facility] TDAP (ADACEL) VACCINE Unknown Completed [facility] Influenza Virus Vaccine Recomb Quad IM, Preserv and ABX Free 18-64 YRS Unknown Completed [facility] Influenza Virus Vaccine Unknown Completed [facility] Influenza Virus Vaccine Quad .5 mL IM 6+ MO (FLUZONE/FLULAVAL/F LUARIX) Unknown Completed [facility] TDAP (ADACEL) VACCINE Unknown Completed [facility] Influenza Virus Vaccine Recomb Quad IM, Preserv and ABX Free 18-64 YRS Unknown Completed [facility] Influenza Virus Vaccine Unknown Completed [facility] Influenza Virus Vaccine Quad .5 mL IM 6+ MO (FLUZONE/FLULAVAL/F LUARIX) Unknown Completed [facility] TDAP (ADACEL) VACCINE Unknown Completed [facility] Influenza Virus Vaccine Recomb Quad IM, Preserv and ABX Free 18-64 YRS Unknown Completed [facility] Influenza Virus Vaccine Unknown Completed [facility] Influenza Virus Vaccine Quad .5 mL IM 6+ MO (FLUZONE/FLULAVAL/F LUARIX) Unknown Completed [facility] TDAP (ADACEL) VACCINE Unknown Completed [facility] Influenza Virus Vaccine Recomb Quad IM, Preserv and ABX Free 18-64 YRS Unknown Completed [facility] Influenza Virus Vaccine Unknown Completed [facility] Influenza Virus Vaccine Quad .5 mL IM 6+ MO (FLUZONE/FLULAVAL/F LUARIX) Unknown Completed [facility] TDAP (ADACEL) VACCINE Unknown Completed [facility] Influenza Virus Vaccine Recomb Quad IM, Preserv and ABX Free 18-64 YRS Unknown Completed [facility] Influenza Virus Vaccine Unknown Completed [facility] Influenza Virus Vaccine Quad .5 mL IM 6+ MO (FLUZONE/FLULAVAL/F LUARIX) Unknown Completed [facility] TDAP (ADACEL) VACCINE Unknown Completed [facility] Influenza Virus Vaccine Recomb Quad IM, Preserv and ABX Free 18-64 YRS Unknown Completed [facility] Influenza Virus Vaccine Unknown Completed [facility] Influenza Virus Vaccine Quad .5 mL IM 6+ MO (FLUZONE/FLULAVAL/F LUARIX) Unknown Completed [facility] TDAP (ADACEL) VACCINE Unknown Completed [facility] Influenza Virus Vaccine Recomb Quad IM, Preserv and ABX Free 18-64 YRS Unknown Completed [facility] Influenza Virus Vaccine Unknown Completed [facility] Influenza Virus Vaccine Quad .5 mL IM 6+ MO (FLUZONE/FLULAVAL/F LUARIX) Unknown Completed [facility] TDAP (ADACEL) VACCINE Unknown Completed [facility] Influenza Virus Vaccine Quad .5 mL IM 6+ MO (FLUZONE/FLULAVAL/F LUARIX) Unknown Completed [facility] TDAP (ADACEL) VACCINE Unknown Completed [facility] Influenza Virus Vaccine Quad .5 mL IM 6+ MO (FLUZONE/FLULAVAL/F LUARIX) Unknown Completed [facility] TDAP (ADACEL) VACCINE Unknown Completed [facility] Influenza Virus Vaccine Quad .5 mL IM 6+ MO (FLUZONE/FLULAVAL/F LUARIX) Unknown Completed [facility] TDAP (ADACEL) VACCINE Unknown Completed [facility] Influenza Virus Vaccine Quad .5 mL IM 6+ MO (FLUZONE/FLULAVAL/F LUARIX) Unknown Completed [facility] TDAP (ADACEL) VACCINE Unknown Completed [facility] Influenza Virus Vaccine Quad .5 mL IM 6+ MO (FLUZONE/FLULAVAL/F LUARIX) Unknown Completed [facility] TDAP (ADACEL) VACCINE Unknown Completed [facility] Influenza Virus Vaccine Quad .5 mL IM 6+ MO (FLUZONE/FLULAVAL/F LUARIX) Unknown Completed [facility] TDAP (ADACEL) VACCINE Unknown Completed [facility] Influenza Virus Vaccine Quad .5 mL IM 6+ MO (FLUZONE/FLULAVAL/F LUARIX) Unknown Completed [facility] TDAP (ADACEL) VACCINE Unknown Completed [facility] Influenza Virus Vaccine Quad .5 mL IM 6+ MO (FLUZONE/FLULAVAL/F LUARIX) Unknown Completed [facility] TDAP (ADACEL) VACCINE Unknown Completed [facility] Influenza Virus Vaccine Quad .5 mL IM 6+ MO (FLUZONE/FLULAVAL/F LUARIX) Unknown Completed [facility] TDAP (ADACEL) VACCINE Unknown Completed [facility] Influenza Virus Vaccine Recomb Quad IM, Preserv and ABX Free 18-64 YRS Unknown Completed [facility] Influenza Virus Vaccine Unknown Completed [facility] Influenza Virus Vaccine Unknown Completed [facility] Influenza Virus Vaccine Quad IM, Preserv and ABX Free 6 MO-64 YRS (FLUCELVAX) Unknown Completed [facility] Influenza Virus Vaccine Quad .5 mL IM 6+ MO (FLUZONE/FLULAVAL/F LUARIX) Unknown Completed [facility] Influenza Virus Vaccine Quad .5 mL IM 6+ MO (FLUZONE/FLULAVAL/F LUARIX) Unknown Completed [facility] Influenza Virus Vaccine Quad .5 mL IM 6+ MO (FLUZONE/FLULAVAL/F LUARIX) Unknown Completed [facility] TDAP (ADACEL) VACCINE Unknown Completed [facility] Influenza Virus Vaccine Recomb Quad IM, Preserv and ABX Free 18-64 YRS Unknown Completed [facility] Influenza Virus Vaccine Unknown Completed [facility] Influenza Virus Vaccine Unknown Completed [facility] Influenza Virus Vaccine Quad IM, Preserv and ABX Free 6 MO-64 YRS (FLUCELVAX) Unknown Completed [facility] Influenza Virus Vaccine Quad .5 mL IM 6+ MO (FLUZONE/FLULAVAL/F LUARIX) Unknown Completed [facility] Influenza Virus Vaccine Quad .5 mL IM 6+ MO (FLUZONE/FLULAVAL/F LUARIX) Unknown Completed [facility] Influenza Virus Vaccine Quad .5 mL IM 6+ MO (FLUZONE/FLULAVAL/F LUARIX) Unknown Completed [facility] TDAP (ADACEL) VACCINE Unknown Completed [facility] Influenza Virus Vaccine Recomb Quad IM, Preserv and ABX Free 18-64 YRS Unknown Completed [facility] Influenza Virus Vaccine Unknown Completed [facility] Influenza Virus Vaccine Unknown Completed [facility] Influenza Virus Vaccine Quad IM, Preserv and ABX Free 6 MO-64 YRS (FLUCELVAX) Unknown Completed [facility] Influenza Virus Vaccine Quad .5 mL IM 6+ MO (FLUZONE/FLULAVAL/F LUARIX) Unknown Completed [facility] Influenza Virus Vaccine Quad .5 mL IM 6+ MO (FLUZONE/FLULAVAL/F LUARIX) Unknown Completed [facility] Vital Signs Vital Name Observation Time Observation Value Comments S ource Systolic blood pressure 2023-05-19 17:24:00 129 mm[Hg] [facility] Diastolic blood pressure 2023-05-19 17:24:00 83 mm[Hg] [facility] Heart rate 2023-05-19 17:24:00 77 /min [facility] Respiratory rate 2023-05-19 17:24:00 15 /min [facility] Oxygen saturation in Arterial blood by Pulse oximetry 2023-05-19 17:24:00 100 /min [facility] Body temperature 2023-05-19 14:50:00 37.28 Irene [facility] Body height 2023-05-19 14:50:00 154.9 cm [facility] Body weight 2023-05-19 14:50:00 58.968 kg [facility] BMI 2023-05-19 14:50:00 24.56 kg/m2 [facility] Systolic blood pressure 2023-01-15 16:56:00 132 mm[Hg] [facility] Diastolic blood pressure 2023-01-15 16:56:00 91 mm[Hg] [facility] Heart rate 2023-01-15 16:56:00 67 /min [facility] Body temperature 2023-01-15 16:56:00 36.78 Irene [facility] Respiratory rate 2023-01-15 16:56:00 20 /min [facility] Oxygen saturation in Arterial blood by Pulse oximetry 2023-01-15 16:56:00 100 /min [facility] Body height 2023-01-12 09:05:00 154.9 cm [facility] Body weight 2023-01-12 09:05:00 58.968 kg [facility] BMI 2023-01-12 09:05:00 24.56 kg/m2 [facility] Systolic blood pressure 2022-11-21 21:40:00 122 mm[Hg] [facility] Diastolic blood pressure 2022-11-21 21:40:00 90 mm[Hg] [facility] Heart rate 2022-11-21 21:40:00 92 /min [facility] Respiratory rate 2022-11-21 21:40:00 16 /min [facility] Oxygen saturation in Arterial blood by Pulse oximetry 2022-11-21 21:40:00 99 /min [facility] Body temperature 2022-11-21 18:07:00 37.28 [facility] Body weight 2022-11-21 18:07:00 68.04 kg [facility] BMI 2022-11-21 18:07:00 28.34 kg/m2 [facility] Systolic blood pressure 2022-09-05 17:22:00 139 mm[Hg] [facility] Diastolic blood pressure 2022-09-05 17:22:00 91 mm[Hg] [facility] Heart rate 2022-09-05 17:22:00 120 /min [facility] Respiratory rate 2022-09-05 17:22:00 18 /min [facility] Oxygen saturation in Arterial blood by Pulse oximetry 2022-09-05 17:22:00 99 /min [facility] Body temperature 2022-09-05 13:43:00 37.11 [facility] Body weight 2022-09-05 13:43:00 68.04 kg [facility] BMI 2022-09-05 13:43:00 28.34 kg/m2 [facility] Systolic blood pressure 2022-08-01 00:49:00 138 mm[Hg] [facility] Diastolic blood pressure 2022-08-01 00:49:00 104 mm[Hg] [facility] Heart rate 2022-08-01 00:49:00 108 /min [facility] Respiratory rate 2022-08-01 00:49:00 18 /min [facility] Oxygen saturation in Arterial blood by Pulse oximetry 2022-08-01 00:49:00 99 /min [facility] Body temperature 2022-07-31 22:52:00 37.11 [facility] Body height 2022-07-31 22:52:00 154.9 cm [facility] Body weight 2022-07-31 22:52:00 68.04 kg [facility] BMI 2022-07-31 22:52:00 28.34 kg/m2 [facility] Systolic blood pressure 2022-07-15 15:32:00 130 mm[Hg] [facility] Diastolic blood pressure 2022-07-15 15:32:00 90 mm[Hg] [facility] Heart rate 2022-07-15 15:31:00 81 /min [facility] Body temperature 2022-07-15 15:31:00 36.94 Irene [facility] Respiratory rate 2022-07-15 15:31:00 16 /min [facility] Body weight 2022-07-15 15:31:00 68.493 kg [facility] BMI 2022-07-15 15:31:00 28.53 kg/m2 [facility] Oxygen saturation in Arterial blood by Pulse oximetry 2022-07-15 15:31:00 99 /min [facility] Systolic blood pressure 2022-06-23 15:26:00 111 mm[Hg] [facility] Diastolic blood pressure 2022-06-23 15:26:00 75 mm[Hg] [facility] Heart rate 2022-06-23 15:26:00 108 /min [facility] Body temperature 2022-06-23 15:26:00 36.83 Irene [facility] Respiratory rate 2022-06-23 15:26:00 18 /min [facility] Body height 2022-06-23 15:26:00 154.9 cm [facility] Body weight 2022-06-23 15:26:00 71.385 kg [facility] BMI 2022-06-23 15:26:00 29.74 kg/m2 [facility] Oxygen saturation in Arterial blood by Pulse oximetry 2022-06-23 15:26:00 99 /min [facility] Systolic blood pressure 2022-05-05 22:05:00 126 mm[Hg] [facility] Diastolic blood pressure 2022-05-05 22:05:00 75 mm[Hg] [facility] Heart rate 2022-05-05 22:05:00 99 /min [facility] Respiratory rate 2022-05-05 22:05:00 16 /min [facility] Oxygen saturation in Arterial blood by Pulse oximetry 2022-05-05 22:05:00 99 /min [facility] Body temperature 2022-05-05 18:24:00 37.11 Irene [facility] Body height 2022-05-05 18:24:00 154.9 cm [facility] Body weight 2022-05-05 18:24:00 54.432 kg [facility] BMI 2022-05-05 18:24:00 22.67 kg/m2 [facility] Systolic blood pressure 2022-04-26 14:28:00 135 mm[Hg] [facility] Diastolic blood pressure 2022-04-26 14:28:00 95 mm[Hg] [facility] Heart rate 2022-04-26 14:28:00 93 /min [facility] Body temperature 2022-04-26 14:28:00 36.89 Irene [facility] Respiratory rate 2022-04-26 14:28:00 18 /min [facility] Body height 2022-04-26 14:28:00 154.9 cm [facility] Body weight 2022-04-26 14:28:00 54.432 kg [facility] BMI 2022-04-26 14:28:00 22.67 kg/m2 [facility] Oxygen saturation in Arterial blood by Pulse oximetry 2022-04-26 14:28:00 100 /min [facility] Systolic blood pressure 2022-04-26 00:21:00 151 mm[Hg] [facility] Diastolic blood pressure 2022-04-26 00:21:00 98 mm[Hg] [facility] Heart rate 2022-04-26 00:21:00 98 /min [facility] Body temperature 2022-04-26 00:21:00 36.72 Irene [facility] Respiratory rate 2022-04-26 00:21:00 18 /min [facility] Body height 2022-04-26 00:21:00 154.9 cm [facility] Body weight 2022-04-26 00:21:00 54.432 kg [facility] BMI 2022-04-26 00:21:00 22.67 kg/m2 [facility] Oxygen saturation in Arterial blood by Pulse oximetry 2022-04-26 00:21:00 100 /min [facility] Systolic blood pressure 2022-04-09 14:39:00 122 mm[Hg] [facility] Diastolic blood pressure 2022-04-09 14:39:00 84 mm[Hg] [facility] Heart rate 2022-04-09 14:39:00 96 /min [facility] Body height 2022-04-09 14:39:00 154.9 cm [facility] Body weight 2022-04-09 14:39:00 60.328 kg [facility] BMI 2022-04-09 14:39:00 25.13 kg/m2 [facility] Oxygen saturation in Arterial blood by Pulse oximetry 2022-04-09 14:39:00 98 /min [facility] Systolic blood pressure 2022-04-07 22:43:36 131 mm[Hg] [facility] Diastolic blood pressure 2022-04-07 22:43:36 83 mm[Hg] [facility] Heart rate 2022-04-07 22:43:36 113 /min [facility] Respiratory rate 2022-04-07 22:43:36 18 /min [facility] Oxygen saturation in Arterial blood by Pulse oximetry 2022-04-07 22:43:36 97 /min [facility] Body temperature 2022-04-07 19:41:00 37.17 Irene [facility] Body height 2022-04-07 19:41:00 154.9 cm [facility] Body weight 2022-04-07 19:41:00 60.328 kg [facility] BMI 2022-04-07 19:41:00 25.13 kg/m2 [facility] Systolic blood pressure 2022-03-24 19:00:00 125 mm[Hg] [facility] Diastolic blood pressure 2022-03-24 19:00:00 86 mm[Hg] [facility] Heart rate 2022-03-24 19:00:00 93 /min [facility] Respiratory rate 2022-03-24 19:00:00 17 /min [facility] Oxygen saturation in Arterial blood by Pulse oximetry 2022-03-24 19:00:00 97 /min [facility] Body temperature 2022-03-24 13:33:00 36.78 Irene [facility] Systolic blood pressure 2022-03-15 19:23:00 128 mm[Hg] [facility] Diastolic blood pressure 2022-03-15 19:23:00 89 mm[Hg] [facility] Heart rate 2022-03-15 19:23:00 104 /min [facility] Body weight 2022-03-15 19:23:00 60.328 kg [facility] BMI 2022-03-15 19:23:00 25.13 kg/m2 [facility] Oxygen saturation in Arterial blood by Pulse oximetry 2022-03-15 19:23:00 98 /min [facility] Systolic blood pressure 2022-03-15 15:02:00 115 mm[Hg] [facility] Diastolic blood pressure 2022-03-15 15:02:00 70 mm[Hg] [facility] Heart rate 2022-03-15 15:02:00 85 /min [facility] Respiratory rate 2022-03-15 15:02:00 20 /min [facility] Oxygen saturation in Arterial blood by Pulse oximetry 2022-03-15 15:02:00 99 /min [facility] Body temperature 2022-03-15 13:38:00 36.94 Irene [facility] Body height 2022-03-15 13:38:00 154.9 cm [facility] Body weight 2022-03-15 13:38:00 54.432 kg [facility] BMI 2022-03-15 13:38:00 22.67 kg/m2 [facility] Systolic blood pressure 2022-03-11 16:30:00 124 mm[Hg] [facility] Diastolic blood pressure 2022-03-11 16:30:00 88 mm[Hg] [facility] Heart rate 2022-03-11 16:30:00 93 /[facility] Body temperature 2022-03-11 16:30:00 36.67 Irene [facility] Respiratory rate 2022-03-11 16:30:00 14 /min [facility] Oxygen saturation in Arterial blood by Pulse oximetry 2022-03-11 16:30:00 100 /min [facility] Body height 2022-03-11 14:19:00 154.9 cm [facility] Body weight 2022-03-11 14:19:00 58.968 kg [facility] BMI 2022-03-11 14:19:00 24.56 kg/m2 [facility] Systolic blood pressure 2022-02-27 14:14:00 140 mm[Hg] [facility] Diastolic blood pressure 2022-02-27 14:14:00 90 mm[Hg] [facility] Heart rate 2022-02-27 14:14:00 103 /min [facility] Body height 2022-02-27 14:14:00 154.9 cm [facility] Body weight 2022-02-27 14:14:00 59.194 kg [facility] BMI 2022-02-27 14:14:00 24.66 kg/m2 [facility] Oxygen saturation in Arterial blood by Pulse oximetry 2022-02-27 14:14:00 100 /min [facility] Systolic blood pressure 2022-02-27 13:19:00 131 mm[Hg] [facility] Diastolic blood pressure 2022-02-27 13:19:00 86 mm[Hg] [facility] Heart rate 2022-02-27 13:19:00 102 /min [facility] Body temperature 2022-02-27 13:19:00 36.33 Irene [facility] Body height 2022-02-27 13:19:00 154.9 cm [facility] Body weight 2022-02-27 13:19:00 58.968 kg [facility] BMI 2022-02-27 13:19:00 24.56 kg/m2 [facility] Oxygen saturation in Arterial blood by Pulse oximetry 2022-02-27 13:19:00 99 /min [facility] Systolic blood pressure 2022-02-21 08:06:00 135 mm[Hg] [facility] Diastolic blood pressure 2022-02-21 08:06:00 97 mm[Hg] [facility] Heart rate 2022-02-21 08:06:00 98 /min [facility] Respiratory rate 2022-02-21 08:06:00 16 /min [facility] Oxygen saturation in Arterial blood by Pulse oximetry 2022-02-21 08:06:00 97 /min [facility] Body temperature 2022-02-21 06:16:00 36.94 Irene [facility] Body height 2022-02-21 06:16:00 154.9 cm [facility] Body weight 2022-02-21 06:16:00 60.963 kg [facility] BMI 2022-02-21 06:16:00 25.39 kg/m2 [facility] Systolic blood pressure 2022 20:08:00 136 mm[Hg] [facility] Diastolic blood pressure 2022 20:08:00 96 mm[Hg] [facility] Heart rate 2022 20:08:00 100 /min [facility] Respiratory rate 2022 20:08:00 20 /min [facility] Oxygen saturation in Arterial blood by Pulse oximetry 2022 20:08:00 98 /min [facility] Body temperature 2022 16:56:00 37.06 Irene [facility] Body weight 2022 16:56:00 54.432 kg [facility] BMI 2022 16:56:00 22.67 kg/m2 [facility] Systolic blood pressure 2022-02-05 14:31:00 128 mm[Hg] [facility] Diastolic blood pressure 2022-02-05 14:31:00 84 mm[Hg] [facility] Heart rate 2022-02-05 14:31:00 86 /min [facility] Body temperature 2022-02-05 14:31:00 37.89 Irene [facility] Respiratory rate 2022-02-05 14:31:00 18 /min [facility] Body height 2022-02-05 14:31:00 154.9 cm [facility] Body weight 2022-02-05 14:31:00 54.432 [facility] BMI 2022-02-05 14:31:00 22.67 kg/m2 [facility] Oxygen saturation in Arterial blood by Pulse oximetry 2022-02-05 14:31:00 98 /min [facility] Systolic blood pressure 2022-01-18 14:50:00 144 mm[Hg] [facility] Diastolic blood pressure 2022-01-18 14:50:00 92 mm[Hg] [facility] Heart rate 2022-01-18 14:50:00 94 /min [facility] Respiratory rate 2022-01-18 14:50:00 20 /min [facility] Oxygen saturation in Arterial blood by Pulse oximetry 2022-01-18 14:50:00 99 /min [facility] Body weight 2022-01-18 10:18:00 54.432 kg [facility] BMI 2022-01-18 10:18:00 22.67 kg/m2 [facility] Body temperature 2022-01-18 10:15:00 36.72 Irene [facility] Systolic blood pressure 2022-01-15 15:48:26 125 mm[Hg] [facility] Diastolic blood pressure 2022-01-15 15:48:26 85 mm[Hg] [facility] Heart rate 2022-01-15 15:48:26 95 /min [facility] Respiratory rate 2022-01-15 15:48:26 18 /min [facility] Oxygen saturation in Arterial blood by Pulse oximetry 2022-01-15 15:48:26 98 /min [facility] Body temperature 2022-01-15 13:32:00 37.11 [facility] Body height 2022-01-15 13:32:00 154.9 cm [facility] Body weight 2022-01-15 13:32:00 54.432 kg [facility] BMI 2022-01-15 13:32:00 22.67 kg/m2 [facility] Systolic blood pressure 2022-01-09 00:37:11 127 mm[Hg] [facility] Diastolic blood pressure 2022-01-09 00:37:11 90 mm[Hg] [facility] Heart rate 2022-01-09 00:37:11 94 /min [facility] Body temperature 2022-01-09 00:37:11 37.11 [facility] Respiratory rate 2022-01-09 00:37:11 16 /min [facility] Oxygen saturation in Arterial blood by Pulse oximetry 2022-01-09 00:37:11 97 /min [facility] Body height 2022-01-08 23:03:00 154.9 cm [facility] Body weight 2022-01-08 23:03:00 58.06 kg [facility] BMI 2022-01-08 23:03:00 24.19 kg/m2 [facility] Systolic blood pressure 2021-12-12 18:00:00 126 mm[Hg] [facility] Diastolic blood pressure 2021-12-12 18:00:00 87 mm[Hg] [facility] Heart rate 2021-12-12 18:00:00 86 /min [facility] Body temperature 2021-12-12 18:00:00 36.89 Irene [facility] Respiratory rate 2021-12-12 18:00:00 18 /min [facility] Body height 2021-12-12 18:00:00 154.9 cm [facility] Body weight 2021-12-12 18:00:00 57.153 kg [facility] BMI 2021-12-12 18:00:00 23.81 kg/m2 [facility] Systolic blood pressure 2023-01-14 16:32:00 138 mm[Hg] [facility] Diastolic blood pressure 2023-01-14 16:32:00 84 mm[Hg] [facility] Heart rate 2023-01-14 16:32:00 67 /min [facility] Body temperature 2023-01-14 16:32:00 36.5 Irene [facility] Respiratory rate 2023-01-14 16:32:00 16 /min [facility] Oxygen saturation in Arterial blood by Pulse oximetry 2023-01-14 16:32:00 99 /min [facility] Body height 2023-01-12 09:05:00 154.9 cm [facility] Body weight 2023-01-12 09:05:00 58.968 kg [facility] BMI 2023-01-12 09:05:00 24.56 kg/m2 [facility] Procedures Procedure Date / Time Performed Performing Clinician Source COMP. METABOLIC PANEL (04265) 2023-05-19 17:22:00 Tod Sellers [facility] CT ABDOMEN PELVIS W CONTRAST 2023-05-19 15:59:54 Tod Sellers [facility] LIPASE 2023-05-19 15:43:00 Tod Sellers Un [facility] CBC WITH DIFF 2023-05-19 15:43:00 [facility] 2023-05-19 15:32:00 Tod Sellers Un [facility] POCT TEST 2023-05-19 15:31:00 Anna Marie Sellers [facility] CONSENT/REFUSAL FOR DIAGNOSIS AND TREATMENT 2023-05-19 14:37:15 Doctor Unassigned, [place] [facility] PHOSPHORUS 2023-01-15 08:15:00 Benita Rockwell Un [facility] MAGNESIUM 2023-01-15 08:15:00 Benita Rockwell [facility] BASIC METABOLIC PANEL (NA, K, CL, CO2, GLUCOSE, BUN, CREATININE, CA) 2023-01-15 08:15:00 Benita Rockwell [facility] CBC WITH DIFF 2023-01-15 08:15:00 Benita Rockwell U [facility] PROTHROMBIN TIME / INR 2023-01-15 08:15:00 Luis Rockwell [facility] MAGNESIUM 2023-01-14 10:14:00 Benita Rockwell [facility] PHOSPHORUS 2023-01-14 10:14:00 Benita Rockwell [facility] BASIC METABOLIC PANEL (NA, K, CL, CO2, GLUCOSE, BUN, CREATININE, CA) 2023-01-14 10:14:00 Benita Rockwell [facility] CBC WITH DIFF 2023-01-14 10:14:00 Benita Rockwell [facility] PHOSPHORUS 2023-01-14 10:14:00 Benita Rockwell [facility] MAGNESIUM 2023-01-14 10:14:00 Benita Rockwell [facility] BASIC METABOLIC PANEL (NA, K, CL, CO2, GLUCOSE, BUN, CREATININE, CA) 2023-01-14 10:14:00 Benita Rockwell [facility] CBC WITH DIFF 2023-01-14 10:14:00 Benita Rockwell U [facility] CBC WITH DIFF 2023-01-13 10:45:00 Rodolfo Riggins [facility] BASIC METABOLIC PANEL (NA, K, CL, CO2, GLUCOSE, BUN, CREATININE, CA) 2023-01-13 10:45:00 Vaishnavi, [facility] MAGNESIUM 2023-01-13 10:45:00 Vaishnavi, [facility] PHOSPHORUS 2023-01-13 10:45:00 Vaishnavi, [facility] HEPATIC FUNCTION PANEL ([id number]) (ALB,T.PRO,BILI T,BU/BC,ALT,AST,ALK PHOS) 2023-01-13 10:45:00 Vaishnavi, [facility] PHOSPHORUS 2023-01-13 10:45:00 Vaishnavi, [facility] MAGNESIUM 2023-01-13 10:45:00 Vaishnavi, [facility] HEPATIC FUNCTION PANEL ([id number]) (ALB,T.PRO,BILI T,BU/BC,ALT,AST,ALK PHOS) 2023-01-13 10:45:00 Vaishnavi, [facility] BASIC METABOLIC PANEL (NA, K, CL, CO2, GLUCOSE, BUN, CREATININE, CA) 2023-01-13 10:45:00 Vaishnavi, [facility] CBC WITH DIFF 2023-01-13 10:45:00 VaishnaviRodolfo dailey [facility] GLUCOSE BODY FLUID 2023-01-12 20:44:00 VaishnaviRodolfo dailey [facility] BODY FLUID MANUAL DIFF 2023-01-12 20:44:00 Clayton Riggins [facility] T.PROTEIN BODY FLUID 2023-01-12 20:44:00 Vaishnavi, [facility] ASPIRATE OR ABSCESS CULTURE(AEROBIC/ANAEROBIC ) 2023-01-12 20:44:00 Vaishnavi, [facility] LDH TOTAL BODY FLUID 2023-01-12 20:44:00 Vaishnavi, [facility] GLUCOSE BODY FLUID 2023-01-12 20:44:00 VaishnaviRodolfo wade [facility] T.PROTEIN BODY FLUID 2023-01-12 20:44:00 Vaishnavi [facility] BODY FLUID DIRECT COUNT 2023-01-12 20:44:00 Vaishnavi K ent [facility] ASPIRATE OR ABSCESS CULTURE(AEROBIC/ANAEROBIC ) 2023-01-12 20:44:00 Rodolfo Riggins [facility] LDH TOTAL BODY FLUID 2023-01-12 20:44:00 Rodolfo Riggins [facility] PROTHROMBIN TIME / INR 2023-01-12 08:13:00 VaishnaviClayton wade [facility] PROTHROMBIN TIME / INR 2023-01-12 08:13:00 VaishnaviClayton wade nt [facility] COMP. METABOLIC PANEL ([id number]) 2023-01-12 03:49:00 Ciera García [facility] COMP. METABOLIC PANEL ([id number]) 2023-01-12 03:49:00 Ciera García [facility] CT ABDOMEN PELVIS W CONTRAST 2023-01-12 03:32:06 Ciera García [facility] CT ABDOMEN PELVIS W CONTRAST 2023-01-12 03:32:06 Ciera García [facility] POCT TEST 2023-01-12 03:02:00 Jessica García [facility] POCT TEST 2023-01-12 03:02:00 Jessica García [facility] URINALYSIS 2023-01-12 02:56:00 Kenneth García [facility] LIPASE 2023-01-12 02:56:00 Kenneth García [facility] TOTAL BETA HCG ASSAY 2023-01-12 02:56:00 Ciera García [facility] CBC WITH DIFF 2023-01-12 02:56:00 Kenneth García Marie [facility] EXTRA TUBE ORANGE 2023-01-12 02:56:00 Aroldo Siddiqui [facility] EXTRA TUBE LAV 2023-01-12 02:56:00 Aroldo Siddiqui [facility] LIPASE 2023-01-12 02:56:00 Kenneth García Marie [facility] TOTAL BETA HCG ASSAY 2023-01-12 02:56:00 Ciera García [facility] CBC WITH DIFF 2023-01-12 02:56:00 Kenneth García Marie [facility] URINALYSIS 2023-01-12 02:56:00 Kenneth García [facility] EXTRA TUBE LAV 2023-01-12 02:56:00 Aroldo Siddiqui [facility] EXTRA TUBE ORANGE 2023-01-12 02:56:00 Aroldo Siddiqui [facility] CONSENT/REFUSAL FOR DIAGNOSIS AND TREATMENT 2023-01-12 01:46:10 Doctor Unassigned, [place] [facility] CONSENT/REFUSAL FOR DIAGNOSIS AND TREATMENT 2023-01-12 01:46:10 Doctor Unassigned, [place] [facility] ASSIGNMENT OF BENEFITS 2022-11-21 19:49:02 Docto r Unassigned, [place] [facility] ASSIGNMENT OF BENEFITS 2022-11-21 19:49:02 Docto r Unassigned, [place] [facility] CONSENT/REFUSAL FOR DIAGNOSIS AND TREATMENT 2022-11-21 18:03:25 Doctor Unassigned, [place] [facility] CONSENT/REFUSAL FOR DIAGNOSIS AND TREATMENT 2022-11-21 18:03:25 Doctor Unassigned, [place] [facility] EMERGENCY SERVICES AGREEMENTS AND AUTHORIZATIONS 2022-11-21 05:01:00 Doctor Unassigned, [place] [facility] CONSENT/REFUSAL FOR DIAGNOSIS AND TREATMENT 2022-09-05 13:42:02 Doctor Unassigned, [place] [facility] LIPASE 2022-07-31 23:13:00 [facility] 2022-07-31 23:13:00 Domenico Newell [facility] COMP. METABOLIC PANEL ([id number]) 2022-07-31 23:13:00 Manju Newell [facility] CBC WITH DIFF 2022-07-31 23:13:00 Manju Newell [facility] CONSENT/REFUSAL FOR DIAGNOSIS AND TREATMENT 2022-07-31 22:49:17 Doctor Unassigned, [place] [facility] XR ANKLE 3+ VW RIGHT 2022-07-15 16:00:00 Hi Kaur [facility] XR FOOT 3+ VW RIGHT 2022-07-15 16:00:00 Jenifer Kaur [facility] XR FOOT 3+ VW RIGHT 2022-07-15 16:00:00 Jenifer Kaur [facility] PATIENT FINANCIAL POLICY 2022-07-15 15:25:53 Doctor Unassigned, [place] [facility] POCT MOLECULAR STREP 2022-06-23 16:06:00 Unknown, [place] [facility] ASSIGNMENT OF BENEFITS 2022-06-23 15:18:28 Docto r Unassigned, [place] [facility] COMP. METABOLIC PANEL ([id number]) 2022-05-05 19:14:00 Karon Norton [facility] CBC WITH DIFF 2022-05-05 19:14:00 Kraon Norton [facility] POCT TEST 2022-05-05 19:00:00 Lou Norton [facility] URINALYSIS 2022-05-05 18:58:[facility] WO CONTRAST 2022-04-26 15:11:00 Zion Bridges [facility] COMP. METABOLIC PANEL ([id number]) 2022-04-26 14:49:00 Zion Bridges [facility] CBC WITH DIFF 2022-04-26 14:49:00 Zion Bridges [facility] URINALYSIS 2022-04-26 14:49:00 Zion Bridges [facility] POCT TEST 2022-04-26 14:45:00 Jonn Bridges [facility] CONSENT/REFUSAL FOR DIAGNOSIS AND TREATMENT 2022-04-26 14:22:29 Doctor Unassigned, [place] [facility] POCT TEST 2022-04-26 01:22:00 Jonn Bridges [facility] ASSIGNMENT OF BENEFITS 2022-04-26 00:54:02 Docto r Unassigned, [place] [facility] URINALYSIS 2022-04-26 00:45:00 Zion Bridges [facility] CONSENT/REFUSAL FOR DIAGNOSIS AND TREATMENT 2022-04-26 00:16:47 Doctor Unassigned, [place] [facility] BASIC METABOLIC PANEL (NA, K, CL, CO2, GLUCOSE, BUN, CREATININE, CA) 2022-04-07 22:35:00 Olamide Garvin [facility] CBC WITH DIFF 2022-04-07 22:35:00 Olamide Garvin [facility] URINALYSIS 2022-04-07 21:36:00 Olamide Garvin [facility] URINE DRUG (IMMUNOASSAY) - COMPREHENSIVE DRUG SCREEN W/O REFLEX 2022-04-07 21:36:00 Olamide Garvin [facility] CONSENT/REFUSAL FOR DIAGNOSIS AND TREATMENT 2022-04-07 19:29:15 Doctor Unassigned, [place] [facility] POCT TEST 2022-03-24 14:07:00 Kellie Duncan [facility] CONSENT/REFUSAL FOR DIAGNOSIS AND TREATMENT 2022-03-24 13:27:20 Doctor Unassigned, [place] [facility] CT ABDOMEN PELVIS WO CONTRAST 2022-03-15 14:09:04 Anna Gould [facility] URINALYSIS 2022-03-15 13:53:00 [facility] 2022-03-15 13:52:00 Kimberly Gould [facility] CONSENT/REFUSAL FOR DIAGNOSIS AND TREATMENT 2022-03-15 13:37:02 Doctor Unassigned, [place] [facility] POCT TEST 2022-03-11 14:59:00 Redd Viveros [facility] FLU VACC ([id number]), 6 MO-64 YRS, .5ML, IM, QUAD (FLUCELVAX) 2022-02-27 13:34:55 Vijay Martinez [facility] NOTICE OF PRIVACY PRACTICES 2022-02-21 06:06:30 Doctor Unassigned, [place] [facility] CONSENT/REFUSAL FOR DIAGNOSIS AND TREATMENT 2022-02-21 06:03:41 Doctor Unassigned, [place] [facility] XR ANKLE <3 VW RIGHT 2022 17:56:42 Buster Hamilton [facility] CT ABDOMEN PELVIS W CONTRAST 2022 17:44:17 Maggie Hamilton [facility] CT TRAUMA CERVICAL SPINE WO CONTRAST 2022 17:43:49 Maggie Hamilton [facility] POCT TEST 2022 17:27:00 Zoie Hamilton ra [facility] COMP. METABOLIC PANEL ([id number]) 2022 17:17:00 Maggie Hamilton [facility] CBC WITH DIFF 2022 17:17:00 Maggie Hamilton U [facility] CONSENT/REFUSAL FOR DIAGNOSIS AND TREATMENT 2022 16:53:13 Doctor Unassigned, [place] [facility] US GALL BLADDER 2022-01-18 12:31:09 Bernardo Levy [facility] US PELVIS COMPLETE WITH TRANSVAGINAL 2022-01-18 12:21:13 Melvin Zhao [facility] CT ABDOMEN PELVIS W CONTRAST 2022-01-18 11:20:50 Melvin Zhao [facility] POCT TEST 2022-01-18 10:57:00 Jayy Kennedy [facility] COVID-19 (ID NOW RAPID TESTING) 2022-01-18 10:57:00 Jayy Kennedy [facility] URINALYSIS 2022-01-18 10:47:00 Jayy Kennedy [facility] LIPASE 2022-01-18 10:29:00 Jayy Kennedy [facility] TEST, SERUM 2022-01-18 10:29:00 Jayy Kennedy [facility] HEPATIC FUNCTION PANEL ([id number]) (ALB,T.PRO,BILI T,BU/BC,ALT,AST,ALK PHOS) 2022-01-18 10:29:00 Jayy Kennedy [facility] BASIC METABOLIC PANEL (NA, K, CL, CO2, GLUCOSE, BUN, CREATININE, CA) 2022-01-18 10:29:00 Jayy Kennedy [facility] CBC WITH DIFF 2022-01-18 10:29:00 Jayy Kennedy [facility] CONSENT/REFUSAL FOR DIAGNOSIS AND TREATMENT 2022-01-18 10:13:31 Doctor Unassigned, [place] [facility] CT HEAD WO CONTRAST 2022-01-15 15:22:29 Maura Samayoa [facility] TEST, SERUM 2022-01-15 14:36:00 Hudson Samayoa [facility] BASIC METABOLIC PANEL (NA, K, CL, CO2, GLUCOSE, BUN, CREATININE, CA) 2022-01-15 14:36:00 Maura Samayoa [facility] CBC WITH DIFF 2022-01-15 14:36:00 Maura Samayoa [facility] CONSENT/REFUSAL FOR DIAGNOSIS AND TREATMENT 2022-01-15 13:28:12 Doctor Unassigned, [place] [facility] XR CERVICAL SPINE 4 VW 2022-01-09 00:29:[facility]W 2022-01-09 00:29:16 Gabriela, And res [facility] XR SPINE THORACIC 3 VW 2022-01-09 00:29:16 Kassandra Ochoa [facility] URINALYSIS 2022-01-08 23:50:00 Humberto Ochoa [facility] CONSENT/REFUSAL FOR DIAGNOSIS AND TREATMENT 2022-01-08 22:51:08 Doctor Unassigned, [place] [facility] GALV ONLY - VAGINAL PATHOGENS BY NUCLEIC ACID TESTING 2021-12-12 18:37:00 Prasanna Vargas [facility] URINE CULTURE 2021-12-12 18:32:00 Prasanna Vargas [facility] POCT TEST 2021-12-12 18:31:00 Prasanna Vargas [facility] POCT URINALYSIS W/O SPECIFIC GRAVITY 2021-12-12 18:31:00 Prasnana Vargas [facility] Encounters Start Date/Time End Date/Time Encounter Type Admission Type Attending [facility] Care Facility Care Department Encounter ID Source 2021-03-14 03:14:31 Emergency [facility] [id number] [facility] 2021-03-13 20:05:20 Emergency [facility] [id number] [facility] 2021-03-13 12:48:28 Emergency [facility] [id number] [facility] 2021-03-13 02:43:51 Emergency [facility] [id number] [facility] 2021-03-13 00:27:09 Emergency [facility] [id number] [facility] 2021-03-12 22:10:36 Emergency [facility] [id number] [facility] 2021-03-12 20:04:05 Emergency [facility] [id number] [facility] 2021-03-12 15:25:05 Emergency [facility] [id number] [facility] 2021-03-12 11:43:36 Emergency [facility] [id number] [facility] 2021-03-12 07:41:37 Emergency [facility] [id number] [facility] 2021-03-12 05:43:47 Emergency [facility] [id number] [facility] 2021-03-12 03:43:41 Emergency [facility] [id number] [facility] 2021-03-12 01:31:27 Emergency [facility] [id number] [facility] 2021-03-12 00:56:44 Emergency X [facility] [id number] [facility] 2021-03-12 00:56:31 Emergency [facility] [id number] [facility] 2021-03-11 17:47:02 Emergency [facility] [id number] [facility] 2021-03-11 16:27:15 Emergency [facility] [id number] [facility] 2021-03-11 12:00:58 Emergency [facility] [id number] [facility] 2021-03-11 10:33:59 Emergency [facility] [id number] [facility] 2021-03-11 01:36:52 Emergency [facility] [id number] [facility] 2021-03-10 23:35:34 Emergency [facility] [id number] [facility] 2021-03-10 19:06:16 Emergency [facility] [id number] [facility] 2021-03-10 12:39:47 Emergency [facility] [id number] [facility] 2021-03-10 06:54:04 Emergency [facility] [id number] [facility] 2021-03-09 13:25:44 Outpatient P [facility] [id number] [facility] 2021-03-09 13:08:01 Outpatient P [facility] [id number] [facility] 2021-03-09 12:37:25 Outpatient P [facility] [id number] [facility] 2021-03-09 11:51:20 Outpatient P [facility] [id number] [facility] 2023-09-12 00:00:00 2023-09-12 00:00:00 Outpatient ROLDAN QUIROZ [facility] [id number] [facility] 2023-08-26 00:00:00 2023-08-26 00:00:00 Transition of Care Marlys Odell 1.2.840.114 350.1.13.10 4.2.7.2.686 [id number] [facility] 2023-08-23 08:31:00 2023-08-24 13:25:[address] [facility] [id number] [facility] 2023-08-04 14:56:23 2023-08-04 14:56:23 Outpatient [facility] [id number] Willis Gil 2023-06-27 14:47:45 2023-06-27 14:47:45 Outpatient [facility] [id number] Willis Gil 2023-05-19 09:04:00 2023-05-19 12:20:00 Emergency X TOD SELLERS [facility] ERT [id number] [facility] 2023-05-19 09:04:00 2023-05-19 12:20:00 Emergency Tod Sellers [facility] 1..840.114 350.1.13.10 4.2.7.2.686 [id number] [facility] 2023-04-05 00:00:00 2023-04-05 00:00:00 Patient Secure Msg Prasanna Vargas [facility] 1.2.840.114 350.1.13.10 4.2.7.2.686 [id number] [facility] 2023-02-14 12:59:23 2023-02-14 12:59:23 Outpatient [facility] [id number] Willis Gil 2023-02-06 18:19:02 2023-02-06 18:19:02 Outpatient SFA [facility] [id number] Willis Gil 2023-01-30 00:00:00 2023-01-30 00:00:00 Outpatient BILL_R [facility] [id number] [facility] 2023-01-16 00:00:00 2023-01-16 00:00:00 Transition of Care Marlys Odell 1.2.840.114 350.1.13.10 4.2.7.2.686 [id number] [facility] 2023-01-11 21:06:00 2023-01-15 16:00:00 Inpatient X OLIVER STEELE [facility] DAVID [id number] [facility] 2023-01-11 21:06:00 2023-01-15 16:00:00 Hospital Encounter Aroldo Siddiqui, [facility] 1.2.840.114 350.1.13.10 4.2.7.2.686 [id number] [facility] 2023-01-12 00:00:00 2023-01-12 00:00:00 Travel 1.2.840.1 [id number] 3.104.2.7 .[id number] .[id number] 1.2.840.114 350.1.13.10 4.2.7.3.698 [id number] [facility] 2023-01-11 00:00:00 2023-01-11 00:00:00 Travel 1.2.840.1 [id number] 3.104.2.7 .[id number] .8 1.2.840.114 350.1.13.10 4.2.7.3.698 [id number] [facility] 2022-12-28 00:00:00 2022-12-28 00:00:00 Outpatient ERICKSON_R [facility] [id number] [facility] 2022-12-14 18:37:13 2022-12-14 18:37:13 Outpatient SFA [facility] [id number] Willis Gil 2022-12-13 00:00:00 2022-12-13 00:00:00 Outpatient ERICKSON[facility] [id number] [facility] 2022-12-12 09:30:00 2022-12-12 09:30:00 Outpatient PRASANNA LOOMIS [facility] [id number] [facility] 2022-11-21 13:08:00 2022-11-21 16:45:00 Emergency MANJU BARRAGAN [facility] ERT [id number] [facility] 2022-11-21 13:08:00 2022-11-21 16:45:00 Emergency Zion Bridges Christopher 1.2.840.1 [id number] 3.104.2.7 .[id number] .[id number] [facility] 2022-11-21 00:00:00 2022-11-21 00:00:00 Travel 1.2.840.1 [id number] 3.104.2.7 .[id number] .8 1.2.840.114 350.1.13.10 4.2.7.3.698 084.8 [id number] [facility] 2022-11-18 10:08:00 2022-11-18 10:08:00 Outpatient [facility] [id number] Willis Gil 2022-11-15 09:40:00 2022-11-15 09:40:00 Outpatient LIAN LABOY [facility] [id number] [facility] 2022-11-15 00:00:00 2022-11-15 00:00:00 Orders Only Palak Marrufo 1.2.840.1 [id number] 3.104.2.7 .3.456810 .8 [id number] [facility] 2022-11-09 15:26:18 2022-11-09 15:26:18 Outpatient [facility] [id number] Willis Gil 2022-11-06 13:00:00 2022-11-06 13:00:00 Outpatient VIJAY ARAUZ [facility] [id number] [facility] 2022-10-29 00:00:00 2022-10-29 00:00:00 Patient Secure Msg Lian Greene 1.2.840.1 72669.1.1 3.104.2.7 .3.209656 .8 [id number] [facility] 2022-10-29 00:00:00 2022-10-29 00:00:00 Patient Secure Msg Prasanna Vargas 1.2.840.1 91779.1.1 3.104.2.7 .3.619215 .8 [id number] [facility] 2022-10-03 00:00:00 2022-10-03 00:00:00 Letter (Out) Roldan Lim QU[facility]UM HEALTH TOÑO?[facility] 1.2.840.114 350.1.13.10 4.2.7.2.686 [id number] [facility] 2022-10-02 10:00:00 2022-10-02 10:00:00 Outpatient R CELINA FINNEY [facility] [id number] [facility] 2022-10-01 09:40:00 2022-10-01 09:40:00 Outpatient R REJI DÍAZ [facility] [id number] [facility] 2022-09-25 00:00:00 2022-09-25 00:00:00 Telephone Rad Serra [facility] BUILDING 1..840.114 350.1.13.10 4.2.7.2.686 [id number] [facility] 2022-09-21 09:30:00 2022-09-21 09:30:00 Outpatient R KASSANDRA PUGH [facility] [id number] [facility] 2022-09-21 00:00:00 2022-09-21 00:00:00 Letter (Out) [facility] 1..840.114 350.1.13.10 4.2.7.2.686 [id number] 092 [id number] [facility] 2022-09-21 00:00:00 2022-09-21 00:00:00 Telephone [facility] 1..840.114 350.1.13.10 4.2.7.2.686 [id number] [id number] [facility] 2022-09-21 00:00:00 2022-09-21 00:00:00 Telephone [facility] 1..840.114 350.1.13.10 4.2.7.2.686 [id number] [id number] [facility] 2022-09-14 09:30:00 2022-09-14 09:30:00 [facility] [id number] [facility] 2022-09-12 00:00:00 2022-09-12 00:00:00 [facility] 1.840.114 350.1.13.10 4.2.7.2.686 [id number] [facility] 2022-09-07 11:30:00 2022-09-07 11:30:00 [facility] [id number] [facility] 2022-09-05 08:44:00 2022-09-05 13:15:00 Emergency X KENNEDY WHITLEY [facility] ERT [id number] [facility] 2022-09-05 08:44:00 2022-09-05 13:15:00 Emergency LisetTammieise [facility] 1.840.114 350.1.13.10 4.2.7.2.686 [id number] [facility] 2022-09-04 00:00:00 2022-09-04 00:00:00 Telephone [facility] 1..840.114 350.1.13.10 4.2.7.2.686 [id number] [id number] [facility] 2022-09-04 00:00:00 2022-09-04 00:00:00 Patient Secure Rad Wells [facility] PROFESSIO NAL BUILDING 1.2.84.114 350.1.13.10 4.2.7.2.686 [id number] [facility] 2022-08-29 09:00:00 2022-08-29 09:00:00 Outpatient R CELINA FINNEY [facility] [id number] [facility] 2022-08-14 00:00:00 2022-08-14 00:00:00 Patient Secure Msg Doctor Unassigned, [place] [facility] 1.84114 350.1.13.10 4.2.7.2.686 [id number] [facility] 2022-07-31 17:56:00 2022-07-31 20:30:00 [facility] [id number] [facility] 2022-07-31 17:56:00 2022-07-31 20:30:00 [facility] [place] 1.84.114 350.1.13.10 4.2.7.2.686 [id number] [facility] 2022-07-15 09:46:45 2022-07-15 23:59:00 Outpatient R NATASHAMARILYN ESPARZACARI [facility] [id number] [facility] 2022-07-15 09:46:45 2022-07-15 23:59:00 Hospital Encounter Cari Kaur Marleny [facility] TO [facility] 1.84.114 350.1.13.10 4.2.7.2.686 [id number] [facility] 2022-07-15 09:46:45 2022-07-15 23:59:00 Hospital Encounter Cari Kaur [facility] BU[facility] 1.84.114 350.1.13.10 4.2.7.2.686 [id number] [facility] 2022-07-15 09:20:00 2022-07-15 10:29:17 Urgent Care Cari Kaur Unknown, Attending [facility] 1.2.840.114 350.1.13.10 4.2.7.2.686 [id number] [facility] 2022-07-15 00:00:00 2022-07-15 00:00:00 Orders Only Doctor Unassigned, [place] [facility] 1..840.114 350.1.13.10 4.2.7.2.686 [id number] [facility] 2022-06-23 09:20:00 2022-06-23 10:27:39 Outpatient R PAUL SAMAYOA [facility] [id number] [facility] 2022-06-23 09:20:00 2022-06-23 10:27:39 Urgent Care Paul Samayoa Unknown, Attending [facility] 1..840.114 350.1.13.10 4.2.7.2.686 [id number] [facility] 2022-06-23 00:00:00 2022-06-23 00:00:00 Orders Only Doctor Unassigned, [place] [facility] 1.2840.114 350.1.13.10 4.2.7.2.686 [id number] [facility] 2022-06-15 09:40:00 2022-06-15 09:40:00 Outpatient LIAN LABOY [facility] [id number] [facility] 2022-05-29 08:00:00 2022-05-29 08:00:00 Outpatient KASSANDRA MCKINLEY [facility] [id number] [facility] 2022-05-15 09:20:00 2022-05-15 09:20:00 Outpatient R BENNETT MILLER [facility] [id number] [facility] 2022-05-11 09:30:00 2022-05-11 09:30:00 Outpatient R KASSANDRA PUGH [facility] [id number] [facility] 2022-05-05 12:26:00 2022-05-05 16:11:00 Emergency X KARON NORTON [facility] ERT [id number] [facility] 2022-05-05 12:26:00 2022-05-05 16:11:00 Emergency Karon Norton [facility] 1.2.840.114 350.1.13.10 4.2.7.2.686 [id number] [facility] 2022-05-01 00:00:00 2022-05-01 00:00:00 Outpatient R VARGASPRASANNA [facility] [id number] [facility] 2022-04-26 08:30:00 2022-04-26 09:59:00 Emergency X ZION BRIDGES [facility] ERT [id number] [facility] 2022-04-26 08:30:00 2022-04-26 09:59:00 Emergency Zion Bridges [facility] 1.2.840.114 350.1.13.10 4.2.7.2.686 [id number] [id number] [facility] 2022-04-25 18:23:00 2022-04-25 21:55:00 Emergency X KENNEDY WHITLEY [facility] ERT [id number] [facility] 2022-04-25 18:23:00 2022-04-25 21:55:00 Emergency Kennedy Whitley [facility] 1.2.840.114 350.1.13.10 4.2.7.2.686 [id number] [id number] [facility] 2022-04-19 10:00:00 2022-04-19 10:00:00 Outpatient R ISIDRONiteshLIAN [facility] [id number] [facility] 2022-04-12 00:00:00 2022-04-12 00:00:00 Telephone [facility] 1.2.840.114 350.1.13.10 4.2.7.2.686 [id number] 092 [id number] [facility] 2022-04-11 00:00:00 2022-04-11 00:00:00 Telephone PattiDarrion salmon [facility] TOÑO?[facility] 1.2.840.114 350.1.13.10 4.2.7.2.686 [id number] [id number] [facility] 2022-04-10 00:00:00 2022-04-10 00:00:00 [facility]phone [facility]UN[facility] 1.2.840.114 350.1.13.10 4.2.7.2.686 [id number] [facility] 2022-04-09 09:30:00 2022-04-09 09:30:00 Office Visit [facility] 1.2.840.114 350.1.13.10 4.2.7.2.686 [id number] [id number] [facility] 2022-04-09 09:30:00 2022-04-09 09:21:44 [facility] [id number] [facility] 2022-04-07 13:41:00 2022-04-07 17:49:00 Emergency X OLAMIDE GARVIN [facility] ERT [id number] [facility] 2022-04-07 13:41:00 2022-04-07 17:49:00 Emergency Olamide Garvin G [facility] 1.2840.114 350.1.13.10 4.2.7.2.686 [id number] [id number] [facility] 2022-04-07 00:00:00 2022-04-07 00:00:00 Patient Secure Msg Doctor Unassigned, [place] [facility] 1..114 350.1.13.10 4.2.7.2.686 [id number] [facility] 2022-04-04 00:00:00 2022-04-04 00:00:00 Anastasiia Coelhossica [facility] 1.84.114 350.1.13.10 4.2.7.2.686 [id number] [id number] [facility] 2022-04-02 10:30:00 2022-04-02 10:30:00 Outpatient KASSANDRA MCKINLEY [facility] [id number] [facility] 2022-03-28 00:00:00 2022-03-28 00:00:00 Patient Secure Msg Doctor Unassigned, [place] [facility] 1.84.114 350.1.13.10 4.2.7.2.686 [id number] [id number] [facility] 2022-03-24 07:35:00 2022-03-24 13:11:00 Emergency X KELLIE DUNCAN [facility] ERT [id number] [facility] 2022-03-24 07:35:00 2022-03-24 13:11:00 Emergency Kellie Duncan [facility] 1.2.114 350.1.13.10 4.2.7.2.686 [id number] [facility] 2022-03-23 10:30:00 2022-03-23 10:30:00 Outpatient KASSANDRA MCKINLEY [facility] [id number] [facility] 2022-03-23 00:00:00 2022-03-23 00:00:00 Telephone Darrion Wyatt [facility] TOÑO?[facility] 1.2.840.114 350.1.13.10 4.2.7.2.686 [id number] [facility] 2022-03-22 00:00:00 2022-03-22 00:00:00 Telephone Darrion Wyatt [facility] TOÑO?[facility] OFF[facility] BUILDING 1..840.114 350.1.13.10 4.2.7.2.686 [id number] 092 [id number] [facility] 2022-03-22 00:00:00 2022-03-22 00:00:00 Refill Darrion Wyatt [facility] TOÑO?[facility] OFF[facility] BUILD[facility] 1..840.114 350.1.13.10 4.2.7.2.686 [id number] 092 [id number] [facility] 2022-03-21 00:00:00 2022-03-21 00:00:00 Telephone Darrion Wyatt [facility] TOÑO?[facility] 1.2.840.114 350.1.13.10 4.2.7.2.686 [id number] [facility] 2022-03-15 14:00:00 2022-03-15 14:36:19 Outpatient R REJI DÍAZ [facility] [id number] [facility] 2022-03-15 14:00:00 2022-03-15 14:36:19 Office Visit Reji Díaz [facility]DNA PROFESSIO NAL BUILDING 1.2.840.114 350.1.13.10 4.2.7.2.686 [id number] [facility] 2022-03-15 08:40:2022-03-15 10:47:00 Emergency X ANNA GOULD [facility] ERT [id number] [facility] 2022-03-15 08:40:00 2022-03-15 10:47:00 Emergency Anna Gould [facility] 1..840.114 350.1.13.10 4.2.7.2.686 [id number] [facility] 2022-03-14 10:30:00 2022-03-14 10:30:00 Outpatient PRASANNA LOOMIS [facility] [id number] [facility] 2022-03-11 09:22:00 2022-03-11 12:15:00 Emergency X ANGELICA VIVEROS [facility] ERT [id number] [facility] 2022-03-11 09:22:00 2022-03-11 12:15:00 Emergency RosemarieAngelica triana [facility] 1.840.114 350.1.13.10 4.2.7.2.686 [id number] [facility] 2022-03-06 08:30:00 2022-03-06 08:30:00 Outpatient KASSANDRA MCKINLEY [facility] [id number] [facility] 2022-03-02 00:00:00 2022-03-02 00:00:00 Telephone Darrion Wyatt [facility] 1..840.114 350.1.13.10 4.2.7.2.686 [id number] 092 [id number] [facility] 2022-02-28 00:00:00 2022-02-28 00:00:00 Patient Secure Msg Doctor Unassigned, [place] [facility] 1..840.114 350.1.13.10 4.2.7.2.686 [id number] [id number] [facility] 2022-02-27 09:30:00 2022-02-27 09:49:42 Outpatient R KASSANDRA PUGH [facility] [id number] [facility] 2022-02-27 09:30:00 2022-02-27 09:49:42 Office Visit Anastasiia Pughssica [facility] TOÑO[facility] 1..840.114 350.1.13.10 4.2.7.2.686 [id number] [id number] [facility] 2022-02-27 08:00:00 2022-02-27 09:12:17 Office Visit Vijay Martinez [facility] TOÑO?[facility] 1..840.114 350.1.13.10 4.2.7.2.686 [id number] [id number] [facility] 2022-02-26 11:30:00 2022-02-26 11:30:00 Outpatient R KASSANDRA PUGH [facility] [id number] [facility] 2022-02-21 01:20:00 2022-02-21 03:44:00 Emergency X MAGGIE HAMILTON [facility] ERT [id number] [facility] 2022-02-21 01:20:00 2022-02-21 03:44:00 Emergency Maggie Hamilton [facility] 1..840.114 350.1.13.10 4.2.7.2.686 [id number] [facility] 2022-02-19 00:00:00 2022-02-19 00:00:00 Patient Secure Msg Kendal Zamudio [facility] TOÑO[facility] MED[facility] OFF[facility] BUILD[facility] 1..840.114 350.1.13.10 4.2.7.2.686 [id number] 044 [id number] [facility] 2022-02-19 00:00:00 2022-02-19 00:00:00 Patient Secure Msg Kendal Zamudio [facility] TO[facility]O?[facility] 1.84114 350.1.13.10 4.2.7.2.686 [id number] [facility] 2022-02-19 00:00:00 2022-02-19 00:00:00 Patient Secure Msg Ade Bradford [facility] 1.114 350.1.13.10 4.2.7.2.686 [id number] [facility] 2022-02-19 00:00:00 2022-02-19 00:00:00 Patient Secure Msg Martin Ross aFrzana [facility] CUTTING MACHINE TENDER [facility] 1..114 350.1.13.10 4.2.7.2.686 [id number] [facility] 2022 11:58:00 2022 15:13:00 Emergency X MAGGIE HAMILTON [facility] ERT [id number] [facility] 2022 11:58:00 2022 15:13:00 Emergency Maggie Hamilton [facility] 1..114 350.1.13.10 4.2.7.2.686 [id number] 084 [id number] [facility] 2022-02-09 09:00:00 2022-02-09 09:00:00 Outpatient R CRICKET TAYLOR [facility] [id number] [facility] 2022-02-06 10:00:00 2022-02-06 10:00:00 Outpatient VIJAY ARAUZ [facility] [id number] [facility] 2022-02-05 09:45:00 2022-02-05 10:05:00 Nurse Visit Nurse, Filippo [facility] Ileana Medrano [facility] TO[facility]O?[facility] 1.84.114 350.1.13.10 4.2.7.2.686 [id number] [facility] 2022-02-05 09:20:00 2022-02-05 09:20:00 Outpatient FLACO KEE [facility] [id number] [facility] 2022-01-26 00:00:00 2022-01-26 00:00:00 Case Management Prasanna Vargas [facility] 1..114 350.1.13.10 4.2.7.2.686 [id number] [facility] 2022-01-22 11:00:00 2022-01-22 11:00:00 Outpatient VIJAY ARAUZ [facility] [id number] [facility] 2022-01-19 00:00:00 2022-01-19 00:00:00 Patient Secure Msg Doctor Unassigned, [place] [facility] .114 350.1.13.10 4.2.7.2.686 [id number] [facility] 2022-01-18 05:17:00 2022-01-18 10:25:00 Emergency BERNARDO WALTON [facility] ERT [id number] [facility] 2022-01-18 05:17:00 2022-01-18 10:25:00 Emergency Jayy Kennedy [facility] ..114 350.1.13.10 4.2.7.2.686 [id number] [facility] 2022-01-15 08:34:00 2022-01-15 10:49:00 Emergency MAURA DALE [facility] ERT [id number] [facility] 2022-01-15 08:34:00 2022-01-15 10:49:00 Emergency Larry Perez Robert Lee [facility] ..114 350.1.13.10 4.2.7.2.686 [id number] [facility] 2022-01-08 18:04:00 2022-01-08 20:09:00 Emergency X HUMBERTO OCHOA [facility] ERT [id number] [facility] 2022-01-08 18:04:00 2022-01-08 20:09:00 Emergency Humberto Ochoa [facility] .2.840.114 350.1.13.10 4.2.7.2.686 [id number] [facility] 2021-12-12 13:30:00 2021-12-12 13:40:21 Outpatient Farzana [facility] [id number] [facility] 2021-12-12 13:30:00 2021-12-12 13:40:21 [facility] 1.2.840.114 350.1.13.10 4.2.7.2.686 [id number] [facility] 2021-12-12 13:30:00 2021-12-12 13:40:21 Outpatient Farzana [facility] [id number] [facility] 2021-12-12 13:30:00 2021-12-12 13:40:21 Outpatient Farzana [facility] [id number] [facility] 2021-12-11 16:15:00 2021-12-11 16:15:00 Outpatient ADE KING [facility] [id number] [facility] 2021-12-05 14:15:00 2021-12-05 14:15:00 Outpatient ROMULO BROWNING [facility] [id number] [facility] 2021-11-28 08:49:00 2021-11-28 11:02:00 Emergency X ERROL KARON [facility] ERT [id number] [facility] 2021-11-28 08:49:00 2021-11-28 11:02:00 Emergency Karon Norton [facility] 1.2840.114 350.1.13.10 4.2.7.2.686 [id number] [facility] 2021-11-28 00:00:00 2021-11-28 00:00:00 Patient Secure Msg Cricket Taylor [facility] CUTTING MACHINE TENDER HEL[facility] 1.0.114 350.1.13.10 4.2.7.2.686 [id number] [facility] 2021-11-24 18:14:00 2021-11-24 21:04:00 Emergency X Kaycee MÉNDEZ [facility] ERT [id number] [facility] 2021-11-24 18:14:00 2021-11-24 21:04:00 Emergency Kaycee Méndez [facility] 1.0.114 350.1.13.10 4.2.7.2.686 [id number] [facility] 2021-11-24 00:00:00 2021-11-24 00:00:00 Telephone Cricket Talyor [facility] CUTTING MACHINE TENDER HELPER [facility] 1.0.114 350.1.13.10 4.2.7.2.686 [id number] [facility] 2021-11-20 00:00:00 2021-11-20 00:00:00 Patient Secure Msg Kendal Zamudio [facility] TO[facility] 1.2.114 350.1.13.10 4.2.7.2.686 [id number] [facility] 2021-11-19 00:00:00 2021-11-19 00:00:00 Letter (Out) Noam, [facility] 1.2.840.114 350.1.13.10 4.2.7.2.686 [id number] [facility] 2021-11-18 10:41:40 2021-11-18 23:59:00 Outpatient R FLACO BOYD [facility] [id number] [facility] 2021-11-18 10:41:40 2021-11-18 23:59:00 Hospital Encounter Oliver [facility] MEDICAL OFFICE BUILDING 1..840.114 350.1.13.10 4.2.7.2.686 [id number] [facility] 2021-11-18 10:20:00 2021-11-18 10:53:20 [facility] MED[facility] OFF[facility] BUILD[facility] 1..840.114 350.1.13.10 4.2.7.2.686 [id number] [facility] 2021-11-09 10:30:00 2021-11-09 10:30:00 Outpatient R CELINA MIXON [facility] [id number] [facility] 2021-10-25 13:20:00 2021-10-25 13:20:00 Urgent Care Mitchell [facility] MED[facility] OFFICE BUILD[facility] 1..840.114 350.1.13.10 4.2.7.2.686 [id number] [facility] 2021-10-25 13:20:00 2021-10-25 12:47:59 Outpatient R ILEANA MEDRANO [facility] [id number] [facility] 2021-10-25 00:00:00 2021-10-25 00:00:00 Patient Secure Vijay [place] [facility] OFF[facility] BU[facility] 1..840.114 350.1.13.10 4.2.7.2.686 [id number] [id number] [facility] 2021-10-25 00:00:00 2021-10-25 00:00:00 Telephone Juan Vijay [facility] MEDICAL OFFICE BUILDING 1.2.840.114 350.1.13.10 4.2.7.2.686 [id number] [facility] 2021-10-25 00:00:00 2021-10-25 00:00:00 Telephone Provider, Filippo Shirley [facility] Care [facility] 1.2.840.114 350.1.13.10 4.2.7.2.686 [id number] [facility] 2021-10-25 00:00:00 2021-10-25 00:00:00 Telephone Nurse, Filippo [facility] 1.2.840.114 350.1.13.10 4.2.7.2.686 [id number] [facility] 2021-10-24 10:15:00 2021-10-24 10:15:00 Outpatient ROMULO BROWNING [facility] [id number] [facility] 2021-10-24 10:15:00 2021-10-24 10:15:00 Outpatient ROMULO BROWNING [facility] [id number] [facility] 2021-10-11 09:30:00 2021-10-11 09:30:00 Outpatient ROMULO BROWNING [facility] [id number] [facility] 2021-10-10 13:30:00 2021-10-10 13:30:00 Outpatient PRASANNA LOOMIS [facility] [id number] [facility] 2021-10-10 13:30:00 2021-10-10 13:30:00 Outpatient PRASANNA LOOMIS [facility] [id number] [facility] 2021-10-10 13:30:00 2021-10-10 13:30:00 Outpatient PRASANNA LOOMIS [facility] [id number] [facility] 2021-10-10 13:30:00 2021-10-10 13:30:00 Outpatient R PRASANNA VARGAS [facility] [id number] [facility] 2021-10-10 13:30:00 2021-10-10 13:30:00 Outpatient R PRASANNA VARGAS [facility] [id number] [facility] 2021-10-10 13:30:00 2021-10-10 13:30:00 Outpatient R PRASANNA VARGAS [facility] [id number] [facility] 2021-10-10 13:30:00 2021-10-10 13:30:00 Outpatient R PRASANNA VARGAS [facility] [id number] [facility] 2021-10-05 00:00:00 2021-10-05 00:00:00 [facility] 1.2.840.114 350.1.13.10 4.2.7.2.686 [id number] [facility] 2021-10-05 00:00:00 2021-10-05 00:00:00 Patient Secure Msg Robb [facility] 1.2.840.114 350.1.13.10 4.2.7.2.686 [id number] [facility] 2021-10-04 00:00:00 2021-10-04 00:00:00 Pre Visit Outreach Melia Rodriguez 1.2.840.114 350.1.13.10 4.2.7.2.686 [id number] [facility] 2021-09-28 13:30:00 2021-09-28 13:45:00 Office Visit Celina Mixon [facility] 1.2.840.114 350.1.13.10 4.2.7.2.686 [id number] [facility] 2021-09-28 13:30:00 2021-09-28 13:30:00 Outpatient Farzana CELINA MIXON [facility] [id number] [facility] 2021-09-28 13:30:00 2021-09-28 13:30:00 Outpatient Farzana CELINA MIXON [facility] [id number] [facility] 2021-09-28 00:00:00 2021-09-28 00:00:00 Patient Secure Celina Zheng [facility] 1.2.840.114 350.1.13.10 4.2.7.2.686 [id number] [facility] 2021-09-27 14:00:00 2021-09-27 14:00:00 Outpatient TETO BRANTLEY [facility] [id number] [facility] [facility] 2021-09-27 09:30:00 2021-09-27 09:30:00 Outpatient R DANIA PENNINGTON [facility] [id number] [facility] 2021-09-27 09:30:00 2021-09-27 09:30:00 Outpatient DANIA RICARDO [facility] [id number] [facility] 2021-09-27 09:30:00 2021-09-27 09:30:00 Outpatient DANIA RICARDO [facility] [id number] [facility] 2021-09-26 10:45:00 2021-09-26 10:45:00 Outpatient R CRICKET TAYLOR [facility] [id number] [facility] 2021-09-26 10:45:00 2021-09-26 10:45:00 Outpatient R CRICKET TAYLOR [facility] [id number] [facility] 2021-09-26 00:00:00 2021-09-26 00:00:00 Patient Secure Vijay Caraballo [facility] MEDICAL OFFICE BUILDING 1.2.840.114 350.1.13.10 4.2.7.2.686 [id number] 044 [id number] [facility] 2021-09-26 00:00:00 2021-09-26 00:00:00 Patient Secure Vijay Caraballo [facility] MEDICAL OFFICE BUILDING 1.2.840.114 350.1.13.10 4.2.7.2.686 [id number] 044 [id number] [facility] 2021-09-25 10:20:00 2021-09-25 11:10:42 Urgent Care OliverFlaco Amanda PENDING S[facility] 1..840.114 350.1.13.10 4.2.7.2.686 [id number] [facility] 2021-09-25 10:20:00 2021-09-25 11:10:42 Outpatient R FLACO BOYD [facility] [id number] [facility] 2021-09-25 10:20:00 2021-09-25 10:20:00 Outpatient R FLACO BOYD [facility] [id number] [facility] 2021-09-25 10:00:00 2021-09-25 10:00:00 Outpatient R PRASANNA VARGAS [facility] [id number] [facility] 2021-09-25 00:00:00 2021-09-25 00:00:00 Telephone Flaco Boyd [facility] MEDICAL OFFICE BUILDING 1.2.840.114 350.1.13.10 4.2.7.2.686 [id number] [facility] 2021-09-25 00:00:00 2021-09-25 00:00:00 Patient Secure Msg Prasanna Vargas [facility] AL[facility] NAL BUILD[facility] 1.2.840.114 350.1.13.10 4.2.7.2.686 [id number] [facility] 2021-09-25 00:00:00 2021-09-25 00:00:00 Telephone Cricket Taylor [facility] CUTTING MACHINE TENDER [facility] 1.2.840.114 350.1.13.10 4.2.7.2.686 [id number] [facility] 2021-09-25 00:00:00 2021-09-25 00:00:00 Telephone Celina Mixon [facility] 1.2.840.114 350.1.13.10 4.2.7.2.686 [id number] [facility] 2021-09-15 00:00:00 2021-09-15 00:00:00 Patient Secure Msg Kendal Zamudio [facility] OFF[facility] BUILD[facility] 1.2.840.114 350.1.13.10 4.2.7.2.686 [id number] 044 [id number] [facility] 2021-09-15 00:00:00 2021-09-15 00:00:00 Patient Secure Msg Kendal Zamudio [facility] MED[facility] OFFICE BUILD[facility] 1.2.840.114 350.1.13.10 4.2.7.2.686 [id number] 044 [id number] [facility] 2021-09-15 00:00:00 2021-09-15 00:00:00 Patient Secure Msg Kendal Zamudio [facility] BU[facility] 1.2840.114 350.1.13.10 4.2.7.2.686 [id number] 044 [id number] [facility] 2021-09-14 00:00:00 2021-09-14 00:00:00 Patient Secure Msg Vijay Martinez [facility] MEDICAL OFFICE BUILDING 1.2.114 350.1.13.10 4.2.7.2.686 [id number] 044 [id number] [facility] 2021-09-14 00:00:00 2021-09-14 00:00:00 Patient Secure Msg Doctor Unassigned, [place] [facility] 1..114 350.1.13.10 4.2.7.2.686 [id number] 044 [id number] [facility] 2021-09-12 10:30:00 2021-09-12 10:30:00 Outpatient CELINA STONE [facility] [id number] [facility] 2021-09-12 10:30:00 2021-09-12 10:30:00 Outpatient CELINA STONE [facility] [id number] [facility] 2021-09-12 00:00:00 2021-09-12 00:00:00 Patient Secure Msg Daniel Dsouza [facility] 1.114 350.1.13.10 4.2.7.2.686 [id number] [facility] 2021-09-12 00:00:00 2021-09-12 00:00:00 Orders Only Doctor Unassigned, [place] [facility] 1.0.114 350.1.13.10 4.2.7.2.686 [id number] [facility] 2021-09-12 00:00:00 2021-09-12 00:00:00 Patient Secure Msg Vijay Martinez [facility] MEDICAL OFFICE BUILDING 1.0.114 350.1.13.10 4.2.7.2.686 [id number] 044 [id number] [facility] 2021-09-05 00:00:00 2021-09-05 00:00:00 Patient Secure Msg Vijay Martinez [facility] 1.840.114 350.1.13.10 4.2.7.2.686 [id number] 044 [id number] [facility] 2021-09-05 00:00:00 2021-09-05 00:00:00 Patient Secure Msg Doctor Unassigned, [place] [facility] 1.0.114 350.1.13.10 4.2.7.2.686 [id number] [facility] 2021-09-05 00:00:00 2021-09-05 00:00:00 Patient Secure Msg Doctor Unassigned, [place] [facility] 1.0.114 350.1.13.10 4.2.7.2.686 [id number] 019 [id number] [facility] 2021-09-04 00:00:00 2021-09-04 00:00:00 Patient Secure Msg Vijay Martinez [facility] MEDICAL OFFICE BUILDING 1.0.114 350.1.13.10 4.2.7.2.686 [id number] 044 [id number] [facility] 2021-08-28 00:00:00 2021-08-28 00:00:00 Patient Secure Msg Harsh Charles [facility] 1..114 350.1.13.10 4.2.7.2.686 [id number] [facility] 2021-08-25 00:00:00 2021-08-25 00:00:00 Telephone Dania Pennington [facility] 1..114 350.1.13.10 4.2.7.2.686 [id number] [facility] 2021-08-25 00:00:00 2021-08-25 00:00:00 Patient Secure Msg [facility]ijay [facility] MEDICAL OFFICE BUILDING 1.2840.114 350.1.13.10 4.2.7.2.686 [id number] 044 [id number] [facility] 2021-08-24 00:00:00 2021-08-24 00:00:00 Telephone Vijay Martinez [facility] MEDICAL OFFICE BUILDING 1.2840.114 350.1.13.10 4.2.7.2.686 [id number] 044 [id number] [facility] 2021-08-24 00:00:00 2021-08-24 00:00:00 Patient Secure Msg Vijay Martinez [facility] MEDICAL OFFICE BUILDING 1.2840.114 350.1.13.10 4.2.7.2.686 [id number] 044 [id number] [facility] 2021-08-23 00:00:00 2021-08-23 00:00:00 Patient Secure Msg Vijay Martinez [facility] MEDICAL OFFICE BUILDING 1.2840.114 350.1.13.10 4.2.7.2.686 [id number] 044 [id number] [facility] 2021-08-23 00:00:00 2021-08-23 00:00:00 Telephone Vijay Martinez [facility] MEDICAL OFFICE BUILDING 1.2840.114 350.1.13.10 4.2.7.2.686 [id number] 044 [id number] [facility] 2021-08-22 00:00:00 2021-08-22 00:00:00 Telephone Vijay Martinez [facility] MEDICAL OFFICE BUILDING 1.2840.114 350.1.13.10 4.2.7.2.686 [id number] 044 [id number] [facility] 2021-08-22 00:00:00 2021-08-22 00:00:00 Patient Secure Msg Hallie Wilkinson [facility] MEDICAL OFFICE BUILDING 1.84114 350.1.13.10 4.2.7.2.686 [id number] 044 [id number] [facility] 2021-08-18 00:00:00 2021-08-18 00:00:00 Telephone Vijay Martinez [facility] OFF[facility] BUILD[facility] 1.84.114 350.1.13.10 4.2.7.2.686 [id number] 044 [id number] [facility] 2021-08-17 09:00:00 2021-08-17 09:00:00 Outpatient CELINA STONE [facility] [id number] [facility] 2021-08-17 09:00:00 2021-08-17 09:00:00 Outpatient CELINA STONE [facility] [id number] [facility] 2021-08-17 00:00:00 2021-08-17 00:00:00 Patient Secure Msg Prasanna Vargas [facility] ALICE NAL BUILDING 1.84.114 350.1.13.10 4.2.7.2.686 [id number] [facility] 2021-08-17 00:00:00 2021-08-17 00:00:00 Patient Secure Msg Vijay Martinez [facility] MEDICAL OFFICE BUILDING 1.84.114 350.1.13.10 4.2.7.2.686 [id number] 044 [id number] [facility] 2021-08-17 00:00:00 2021-08-17 00:00:00 Patient Secure Msg Vijay Martinez [facility] 1.2840.114 350.1.13.10 4.2.7.2.686 [id number] 044 [id number] [facility] 2021-08-16 00:00:00 2021-08-16 00:00:00 Patient Secure Msg Vijay Martinez [facility] 1.2840.114 350.1.13.10 4.2.7.2.686 [id number] 044 [id number] [facility] 2021-08-16 00:00:00 2021-08-16 00:00:00 Patient Secure Msg Doctor Unassigned, [place] [facility] 1.2840.114 350.1.13.10 4.2.7.2.686 [id number] 044 [id number] [facility] 2021-08-16 00:00:00 2021-08-16 00:00:00 Patient Secure Msg Vijay Martinez [facility] MEDICAL OFFICE BUILDING 1.2840.114 350.1.13.10 4.2.7.2.686 [id number] 044 [id number] [facility] 2021-08-16 00:00:00 2021-08-16 00:00:00 Patient Secure Msg Vijay Martinez [facility] 1.2840.114 350.1.13.10 4.2.7.2.686 [id number] 044 [id number] [facility] 2021-08-15 15:30:00 2021-08-15 16:16:42 Office Visit Adán Kim Asim [facility] MEDICAL OFFICE BUILDING 1.2840.114 350.1.13.10 4.2.7.2.686 [id number] [facility] 2021-08-15 15:30:00 2021-08-15 16:16:42 Outpatient ADÁN DIEGO [facility] [id number] [facility] 2021-08-15 15:30:00 2021-08-15 15:30:00 Outpatient Farzana JUDY DAÁN [facility] [id number] [facility] 2021-08-15 15:30:00 2021-08-15 15:30:00 Outpatient ADÁN DIEGO [facility] [id number] [facility] 2021-08-15 15:30:00 2021-08-15 15:30:00 Outpatient ADÁN DIEGO [facility] [id number] [facility] 2021-08-15 09:27:00 2021-08-15 12:26:00 Emergency MAURA DALE [facility] ERT [id number] [facility] 2021-08-15 09:27:00 2021-08-15 12:26:00 Emergency Maura Samayoa [facility] 1..840.114 350.1.13.10 4.2.7.2.686 [id number] [facility] 2021-08-15 09:27:00 2021-08-15 12:26:00 Emergency MAURA DALE [facility] ERT [id number] [facility] 2021-08-15 00:00:00 2021-08-15 00:00:00 Patient Secure Msg Doctor Unassigned, [place] [facility] 1..840.114 350.1.13.10 4.2.7.2.686 [id number] [facility] 2021-08-14 13:25:00 2021-08-14 23:59:00 Outpatient VIJAY ARAUZ [facility] [id number] [facility] 2021-08-14 13:25:00 2021-08-14 23:59:00 Outpatient VIJAY ARAUZ [facility] [id number] [facility] 2021-08-14 13:25:00 2021-08-14 13:25:00 Outpatient R VIJAY MARTINEZ [facility] [id number] [facility] 2021-08-14 12:19:07 2021-08-14 13:24:00 Outpatient R VIJAY MARTINEZ [facility] [id number] [facility] 2021-08-14 12:19:07 2021-08-14 13:24:00 Outpatient R VIJAY MARTINEZ [facility] [id number] [facility] 2021-08-14 12:30:00 2021-08-14 13:01:24 Bottle Selector Visit Lab, Filippo ReneeRichelle cannonOn license of [facility] MEDICAL OFFICE BUILDING 1.2.840.114 350.1.13.10 4.2.7.2.686 [id number] [facility] 2021-08-14 12:30:00 2021-08-14 12:45:00 Bottle Selector Visit Lab, Filippo ReneeRichelle cannonOn license of [facility] MEDICAL OFFICE BUILDING 1..840.114 350.1.13.10 4.2.7.2.686 [id number] [facility] 2021-08-14 11:30:00 2021-08-14 12:31:12 Office Visit JuanVijay [facility] MEDICAL OFFICE BUILDING 1.2.840.114 350.1.13.10 4.2.7.2.686 [id number] 044 [id number] [facility] 2021-08-14 11:30:00 2021-08-14 12:31:12 Outpatient R VÍCTORVIJAY Cannon [facility] [id number] [facility] 2021-08-14 00:00:00 2021-08-14 00:00:00 Patient Secure Msg Víctorkassandra [facility] MEDICAL OFFICE BUILDING 1.2.840.114 350.1.13.10 4.2.7.2.686 [id number] 044 [id number] [facility] 2021-08-14 00:00:00 2021-08-14 00:00:00 Patient Secure Msg Vijay Martinez [facility] MEDICAL OFFICE BUILDING 1..840.114 350.1.13.10 4.2.7.2.686 [id number] 044 [id number] [facility] 2021-08-09 14:45:00 2021-08-09 14:45:00 Outpatient R ADÁN KIM [facility] [id number] [facility] 2021-08-09 00:00:00 2021-08-09 00:00:00 Telephone Vijay Martinez [facility] MEDICAL OFFICE BUILDING 1..840.114 350.1.13.10 4.2.7.2.686 [id number] 044 [id number] [facility] 2021-08-08 11:30:00 2021-08-08 23:59:00 Outpatient R VÍCTORRICHELLE CannonIE [facility] [id number] [facility] 2021-08-08 11:30:00 2021-08-08 23:59:00 Hospital Encounter Vijay Martinez [facility] MEDICAL OFFICE BUILDING 1..840.114 350.1.13.10 4.2.7.2.686 [id number] [facility] 2021-08-08 11:15:00 2021-08-08 11:15:00 Outpatient R JUANRICHELLEIE [facility] [id number] [facility] 2021-08-08 11:00:00 2021-08-08 11:00:00 Outpatient R JUAN VIJAY [facility] [id number] [facility] 2021-08-08 00:00:00 2021-08-08 00:00:00 Patient Secure Msg Doctor Unassigned, [place] [facility] 1..840.114 350.1.13.10 4.2.7.2.686 [id number] [id number] [facility] 2021-08-07 09:30:00 2021-08-07 10:23:21 Office Visit Vijay Martinez [facility] 1.2840.114 350.1.13.10 4.2.7.2.686 [id number] 044 [id number] [facility] 2021-08-07 09:30:00 2021-08-07 10:23:21 Outpatient R VIJAY MARTINEZ [facility] [id number] [facility] 2021-08-07 09:30:00 2021-08-07 09:30:00 Outpatient R RICHELLE MARTINEZIE [facility] [id number] [facility] 2021-08-07 00:00:00 2021-08-07 00:00:00 Patient Secure Msg Vijay Martinez [facility] MEDICAL OFFICE BUILDING 1.2.840.114 350.1.13.10 4.2.7.2.686 [id number] 044 [id number] [facility] 2021-08-07 00:00:00 2021-08-07 00:00:00 Patient Secure Msg Vijay Martinez [facility] MEDICAL OFFICE BUILDING 1.2840.114 350.1.13.10 4.2.7.2.686 [id number] 044 [id number] [facility] 2021-08-07 00:00:00 2021-08-07 00:00:00 Patient Secure Msg OnurRichelle daileyCelina A [facility] [place] 1.2840.114 350.1.13.10 4.2.7.2.686 [id number] [facility] 2021-08-04 10:00:00 2021-08-04 10:00:00 Outpatient R PETRA RENO [facility] [id number] [facility] 2021-08-04 00:00:00 2021-08-04 00:00:00 Patient Secure Msg Vijay Martinez [facility] 1.2.840.114 350.1.13.10 4.2.7.2.686 [id number] 044 [id number] [facility] 2021-08-03 11:00:00 2021-08-03 12:48:43 Office Visit Jayy Diaz [facility]. 1.2.840.114 350.1.13.10 4.2.7.2.686 [id number] [facility] 2021-08-03 11:00:00 2021-08-03 12:48:43 Outpatient JAYY YANG [facility] [id number] [facility] 2021-08-03 11:00:00 2021-08-03 11:00:00 Outpatient JAYY YANG [facility] [id number] [facility] 2021-08-03 00:00:00 2021-08-03 00:00:00 Patient Secure Celina Zheng [facility] 1..840.114 350.1.13.10 4.2.7.2.686 [id number] [facility] 2021-08-02 00:00:00 2021-08-02 00:00:00 Telephone Vijay Martinez PENDING SALE TO [facility]THE?[facility] 1.2.840.114 350.1.13.10 4.2.7.2.686 [id number] [facility] 2021-07-21 08:00:00 2021-07-21 08:52:53 Outpatient DARRION QUIROZ HOWARD [facility] [id number] [facility] 2021-07-17 11:30:00 2021-07-17 11:30:00 Outpatient VIJAY ARAUZ [facility] [id number] [facility] 2021-07-17 00:00:00 2021-07-17 00:00:00 Patient Secure Msg Vijay Martinez [facility] 1.2.840.114 350.1.13.10 4.2.7.2.686 [id number] 044 [id number] [facility] 2021-06-19 00:00:00 2021-06-19 00:00:00 Telephone Vijay Martinez [facility] MEDICAL OFFICE BUILDING 1..840.114 350.1.13.10 4.2.7.2.686 [id number] 044 [id number] [facility] 2021-06-09 00:00:00 2021-06-09 00:00:00 Telephone La[facility] 1..840.114 350.1.13.10 4.2.7.2.686 [id number] [facility] 2021-06-06 11:15:00 2021-06-06 11:15:00 Outpatient Farzana [facility] [id number] [facility] 2021-06-06 11:15:00 2021-06-06 11:15:00 Outpatient TETO BRANTLEY [facility] [id number] [facility] 2021-06-02 15:45:00 2021-06-02 15:45:00 Outpatient R CLAUDETTE EVANS [facility] [id number] [facility] 2021-05-31 10:00:00 2021-05-31 10:46:31 Outpatient R JUANRICHELLEIE [facility] [id number] [facility] 2021-05-31 10:00:00 2021-05-31 10:46:31 Office Visit VíctorVijay cannon [facility] MEDICAL OFFICE BUILDING 1.2.840.114 350.1.13.10 4.2.7.2.686 [id number] 044 [id number] [facility] 2021-05-31 10:00:00 2021-05-31 10:46:31 Outpatient VIJAY ARAUZ [facility] [id number] [facility] 2021-05-31 00:00:00 2021-05-31 00:00:00 Orders Only Doctor Unassigned, [place] [facility] 1.2.840.114 350.1.13.10 4.2.7.2.686 [id number] [facility] 2021-05-26 00:00:00 2021-05-26 00:00:00 Telephone Skylar Groves [facility] 1.2.840.114 350.1.13.10 4.2.7.2.686 [id number] 044 [id number] [facility] 2021-05-26 00:00:00 2021-05-26 00:00:00 Patient Secure [facility] 1.2.840.114 350.1.13.10 4.2.7.2.686 [id number] [facility] 2021-05-25 14:00:00 2021-05-25 14:30:00 Telemedici ne Visit Skylar Groves [facility] 1.2.840.114 350.1.13.10 4.2.7.2.686 [id number] 044 [id number] [facility] 2021-05-25 14:00:00 2021-05-25 14:00:00 Outpatient SKYLAR CEBALLOS [facility] [id number] [facility] 2021-05-25 14:00:00 2021-05-25 14:00:00 Outpatient SKYLAR CEBALLOS [facility] [id number] [facility] 2021-05-25 00:00:00 2021-05-25 00:00:00 Patient Secure Msg Skylar Groves [facility] 1.2.840.114 350.1.13.10 4.2.7.2.686 [id number] 044 [id number] [facility] 2021-05-25 00:00:00 2021-05-25 00:00:00 Patient Secure Msg Skylar Groves [facility] 1.2.840.114 350.1.13.10 4.2.7.2.686 [id number] 044 [id number] [facility] 2021-05-24 00:00:00 2021-05-24 00:00:00 Telephone Rad Serra [facility] BUILDING 1.2.840.114 350.1.13.10 4.2.7.2.686 [id number] 059 [id number] [facility] 2021-05-24 00:00:00 2021-05-24 00:00:00 Patient Secure Msg Rad Serra [facility] AL[facility] NAL BUILDING 1.2.840.114 350.1.13.10 4.2.7.2.686 [id number] 059 [id number] [facility] 2021-05-24 00:00:00 2021-05-24 00:00:00 Patient Secure Msg Claudette Evans [facility] 1.2.840.114 350.1.13.10 4.2.7.2.686 [id number] [facility] 2021-05-23 10:00:00 2021-05-23 10:00:00 Outpatient R [facility] [id number] [facility] 2021-05-23 10:00:00 2021-05-23 10:00:00 Outpatient R [facility] [id number] [facility] 2021-05-23 00:00:00 2021-05-23 00:00:00 Patient Secure Claudette Hinds [facility] 1..840.114 350.1.13.10 4.2.7.2.686 [id number] [facility] 2021-05-16 09:00:00 2021-05-16 09:00:00 Outpatient R TETO CARNES [facility] [id number] [facility] 2021-05-12 00:00:00 2021-05-12 00:00:00 Orders Only Doctor Unassigned, [place] [facility] 1..840.114 350.1.13.10 4.2.7.2.686 [id number] [facility] 2021-05-10 13:00:00 2021-05-10 13:00:00 Outpatient CARMELINA CEDILLOANITRA [facility] [id number] [facility] 2021-05-10 13:00:00 2021-05-10 13:00:00 Outpatient CARMELINA CEDILLOANITRA [facility] [id number] [facility] 2021-05-09 00:00:00 2021-05-09 00:00:00 Telephone Prasanna Vargas [facility] 1..840.114 350.1.13.10 4.2.7.2.686 [id number] [facility] 2021-05-09 00:00:00 2021-05-09 00:00:00 Patient Secure Rad Serra [facility] 1..840.114 350.1.13.10 4.2.7.2.686 [id number] [facility] 2021-05-08 16:00:00 2021-05-08 16:00:00 Outpatient JE CRABTREE [facility] [id number] [facility] 2021-05-08 16:00:00 2021-05-08 16:00:00 Outpatient JE CRABTREE [facility] [id number] [facility] 2021-05-08 00:00:00 2021-05-08 00:00:00 Patient Secure Msg Cornelius Serrazohra [facility] 1.2.840.114 350.1.13.10 4.2.7.2.686 [id number] [id number] [facility] 2021-05-08 00:00:00 2021-05-08 00:00:00 Patient Secure g Rad SerraPilarPauloPilar [facility] 1.2.840.114 350.1.13.10 4.2.7.2.686 [id number] [facility] 2021-05-04 00:00:00 2021-05-04 00:00:00 Patient Secure g Rad SerraPilarPauloPilar [facility] 1.2.840.114 350.1.13.10 4.2.7.2.686 [id number] 059 [id number] [facility] 2021-05-04 00:00:00 2021-05-04 00:00:00 Patient Secure Reji San [facility] 1.2.840.114 350.1.13.10 4.2.7.2.686 [id number] [id number] [facility] 2021-05-03 11:15:36 2021-05-03 23:59:00 Outpatient REJI COOPER [facility] [id number] [facility] 2021-05-03 11:15:36 2021-05-03 23:59:00 Hospital Encounter Reji Díaz [facility] BUILDING 1.2840.114 350.1.13.10 4.2.7.2.686 [id number] [facility] 2021-05-03 00:00:00 2021-05-03 00:00:00 Telephone Claudette Evans [facility] TO[facility]O?[facility] BU[facility] 1.2840.114 350.1.13.10 4.2.7.2.686 [id number] 044 [id number] [facility] 2021-05-02 00:00:00 2021-05-02 00:00:00 Telephone Rad Serra.HPilar [facility] BUILDING 1.2840.114 350.1.13.10 4.2.7.2.686 [id number] 059 [id number] [facility] 2021-05-02 00:00:00 2021-05-02 00:00:00 Patient Secure Msg Claudette Evans [facility] TO[facility]O?[facility] 1.2840.114 350.1.13.10 4.2.7.2.686 [id number] 044 [id number] [facility] 2021-05-02 00:00:00 2021-05-02 00:00:00 Telephone Claudette Evans [facility] TO[facility] 1.2840.114 350.1.13.10 4.2.7.2.686 [id number] 044 [id number] [facility] 2021-05-02 00:00:00 2021-05-02 00:00:00 Patient Secure Msg Rad Serra [facility] BUILDING 1.2840.114 350.1.13.10 4.2.7.2.686 [id number] 059 [id number] [facility] 2021-05-02 00:00:00 2021-05-02 00:00:00 Patient Secure Claudette Hinds [facility] TO[facility] 1.114 350.1.13.10 4.2.7.2.686 [id number] 044 [id number] [facility] 2021-04-28 00:00:00 2021-04-28 00:00:00 Patient Secure Claudette Hinds [facility] TO[facility]O?[facility] 1.84114 350.1.13.10 4.2.7.2.686 [id number] 044 [id number] [facility] 2021-04-27 14:24:00 2021-04-27 15:49:00 Emergency X MAGGIE HAMILTON [facility] ERT [id number] [facility] 2021-04-27 14:24:00 2021-04-27 15:49:00 Emergency Maggie Hamilton [facility] 1.114 350.1.13.10 4.2.7.2.686 [id number] 084 [id number] [facility] 2021-04-27 11:15:00 2021-04-27 11:30:00 Laboratory Only Only, Ang Db Test Unknown, Attending Thony Johnson [facility] 1.84114 350.1.13.10 4.2.7.2.686 [id number] [facility] 2021-04-27 11:15:00 2021-04-27 11:15:00 Outpatient R THONY JOHNSON [facility] [id number] [facility] 2021-04-27 00:00:00 2021-04-27 00:00:00 Orders Only Doctor Unassigned, [place] [facility] 1.84.114 350.1.13.10 4.2.7.2.686 [id number] [id number] [facility] 2021-04-20 15:00:00 2021-04-20 15:00:00 Outpatient EDER RENEE [facility] [id number] [facility] 2021-04-13 00:00:00 2021-04-13 00:00:00 Patient Secure Msg Claudette Evans [facility] BU[facility] 1.2.840.114 350.1.13.10 4.2.7.2.686 [id number] 044 [id number] [facility] 2021-04-12 00:00:00 2021-04-12 00:00:00 Telephone Claudette Evans [facility] BUILDING 1.2.840.114 350.1.13.10 4.2.7.2.686 [id number] 044 [id number] [facility] 2021-03-27 00:00:00 2021-03-27 00:00:00 Telephone Prasanna Vargas [facility] BUILDING 1.2.840.114 350.1.13.10 4.2.7.2.686 [id number] [facility] 2021-03-24 00:00:00 2021-03-24 00:00:00 Patient Secure Msg Doctor Unassigned, [place] [facility] 1.2840.114 350.1.13.10 4.2.7.2.686 [id number] [facility] 2021-03-23 13:30:00 2021-03-23 13:30:00 Outpatient PINO AGUIAR [facility] [id number] [facility] 2021-03-23 13:30:00 2021-03-23 13:30:00 Outpatient R PINO HOFF [facility] [id number] [facility] 2021-03-22 09:20:00 2021-03-22 09:20:00 Outpatient R JEANNA, STRAHIL ATAMARIA LUZ, STRAHIL [facility] [id number] [facility] 2021-03-22 09:20:00 2021-03-22 09:20:00 Outpatient R ATAGERARDOOV, STRAHIL ATANASOV, STRAHIL [facility] [id number] [facility] 2021-03-20 00:00:00 2021-03-20 00:00:00 Outpatient R CLAUDETTE EVANS [facility] [id number] [facility] 2021-03-18 00:00:00 2021-03-18 00:00:00 Case Management CristinaClaudette ibrahim [facility] BU[facility] 1.2.840.114 350.1.13.10 4.2.7.2.686 [id number] 044 [id number] [facility] 2021-03-16 11:16:07 2021-03-16 11:31:07 Bottle Selector Visit Lab, Ang - Db CristinaClaudette ibrahim [facility] 1.2.840.114 350.1.13.10 4.2.7.2.686 [id number] [facility] 2021-03-16 11:30:00 2021-03-16 11:30:00 Outpatient R CLAUDETTE EVANS [facility] [id number] [facility] 2021-03-16 11:00:00 2021-03-16 11:14:45 Outpatient R CLAUDETTE EVANS [facility] [id number] [facility] 2021-03-16 10:00:58 2021-03-16 11:14:45 Office Visit Claudette Evans [facility] LULU LUNDBERG?[facility] BU[facility] 1.2.840.114 350.1.13.10 4.2.7.2.686 [id number] 044 [id number] [facility] 2021-03-16 00:00:00 2021-03-16 00:00:00 Patient Secure Msg Claudette Evans [facility] MEDICAL OFFICE BUILDING 1.2.840.114 350.1.13.10 4.2.7.2.686 [id number] 044 [id number] [facility] 2021-03-02 16:15:00 2021-03-02 16:15:00 Outpatient R CRISTINACARMELINA IBRAHIMTAINAANITRA [facility] [id number] [facility] 2021-02-28 18:30:00 2021-02-28 18:30:00 Outpatient R ILEANA MEDRNAO [facility] [id number] [facility] 2021-02-28 00:00:00 2021-02-28 00:00:00 Telephone Claudette Evans [facility] Toño?[facility] Medical Office Building 1..840.114 350.1.13.10 4.2.7.2.686 [id number] [id number] [facility] 2021-02-27 09:00:00 2021-02-27 09:00:00 Outpatient R AMELIA HAMMOND [facility] [id number] [facility] 2021-02-23 00:00:00 2021-02-23 00:00:00 Telephone Claudette Evans [facility] Building 1.2.840.114 350.1.13.10 4.2.7.2.686 [id number] 044 [id number] [facility] 2021-02-10 18:12:00 2021-02-10 23:39:00 Emergency Kaycee Méndez [facility] 1..840.114 350.1.13.10 4.2.7.2.686 [id number] [id number] [facility] 2021-02-10 00:00:00 2021-02-10 00:00:00 Patient Secure Msg Ellis, Wondiful Kassandra [facility] ANGLEDAYAMI FOFANAE?[facility] MEDICAL OFFICE BUILDING 1.2.840.114 350.1.13.10 4.2.7.2.686 [id number] 044 [id number] [facility] 2021-02-10 00:00:00 2021-02-10 00:00:00 Patient Secure Msg Branden Evansful Kassandra [facility] ANGLEDAYAMI FOFANAE?[facility] BUILD[facility] 1.2.840.114 350.1.13.10 4.2.7.2.686 [id number] 044 [id number] [facility] 2021-02-10 00:00:00 2021-02-10 00:00:00 Patient Secure Msg Branden Evansful Kassandra [facility] ANGLEDAYAMI LUNDBERG?[facility] BUILDING 1.2840.114 350.1.13.10 4.2.7.2.686 [id number] 044 [id number] [facility] 2021-02-10 00:00:00 2021-02-10 00:00:00 Patient Secure Msg Branden Evansful Kassandra [facility] ANGLEDAYAMI FOFANAE?[facility] BUILDING 1.2.840.114 350.1.13.10 4.2.7.2.686 [id number] 044 [id number] [facility] 2021-02-09 13:40:00 2021-02-09 23:59:00 Hospital Encounter Claudette Evans [facility] Dave?[facility] Medical Office Building 1.2.840.114 350.1.13.10 4.2.7.2.686 [id number] [facility] 2021-02-09 13:49:05 2021-02-09 14:04:05 Bottle Selector Visit Lab, Filippo - [place] Claudette Evans [facility] To[facility] 1.2.840.114 350.1.13.10 4.2.7.2.686 [id number] [facility] 2021-02-09 12:23:13 2021-02-09 13:47:12 Office Visit Claud[facility] Medical Office Building 1..840.114 350.1.13.10 4.2.7.2.686 [id number] 044 [id number] [facility] 2021-02-09 13:00:00 2021-02-09 13:00:00 Outpatient R CLAUDETTE EVANS [facility] [id number] [facility] 2021-02-09 00:00:00 2021-02-09 00:00:00 Patient Secure Msg Doctor Unassigned, [place] [facility] 1.840.114 350.1.13.10 4.2.7.2.686 [id number] [id number] [facility] 2021-02-08 10:20:00 2021-02-08 10:20:00 Outpatient R ADITYA MEEKS STRAHIL [facility] [id number] [facility] 2021-02-07 00:00:00 2021-02-07 00:00:00 Patient Secure Msg Claudette Evans [facility] BUILDING 1..840.114 350.1.13.10 4.2.7.2.686 [id number] 044 [id number] [facility] 2021-02-02 10:30:00 2021-02-02 10:30:00 Outpatient R SKYLAR GROVES [facility] [id number] [facility] 2021-02-02 00:00:00 2021-02-02 00:00:00 Telephone Claudette Evans [facility] Medical Office Building 1..840.114 350.1.13.10 4.2.7.2.686 [id number] [facility] 2021-02-01 08:30:00 2021-02-01 08:30:00 Outpatient R SKYLAR GROVES [facility] [id number] [facility] 2021-01-31 18:44:04 2021-01-31 19:41:26 [facility] Medical Office Building 1.84.114 350.1.13.10 4.2.7.2.686 [id number] [facility] 2021-01-31 19:00:00 2021-01-31 19:00:00 Outpatient R FLACO BOYD [facility] [id number] [facility] 2021-01-31 00:00:00 2021-01-31 00:00:00 Telephone Claudette Evans Kassandra [facility] Toño?[facility] Medical Office Building 1.84.114 350.1.13.10 4.2.7.2.686 [id number] 044 [id number] [facility] 2021-01-31 00:00:00 2021-01-31 00:00:00 Patient Secure Msg Claudette Evans [facility] BUILDING 1.84.114 350.1.13.10 4.2.7.2.686 [id number] 044 [id number] [facility] 2021-01-30 00:00:00 2021-01-30 00:00:00 Telephone Rad Serra [facility] Building 1.84.114 350.1.13.10 4.2.7.2.686 [id number] 059 [id number] [facility] 2021-01-30 00:00:00 2021-01-30 00:00:00 Patient Secure Msg Claudette Evans [facility] OFF[facility] BUILDING ONE .114 350.1.13.10 4.2.7.2.686 [id number] 044 [id number] [facility] 2021-01-26 14:00:00 2021-01-26 14:00:00 Outpatient R RAD SERRA [facility] [id number] [facility] 2021-01-26 00:00:00 2021-01-26 00:00:00 Patient Secure Skylar Wu [facility] TO[facility] BUILDING 1.2.840.114 350.1.13.10 4.2.7.2.686 [id number] 044 [id number] [facility] 2021-01-25 15:00:00 2021-01-25 15:00:00 Outpatient R [facility] [id number] [facility] 2021-01-21 00:00:00 2021-01-21 00:00:00 Patient Secure Skylar Wu [facility] BUILDING 1.2.840.114 350.1.13.10 4.2.7.2.686 [id number] 044 [id number] [facility] 2021-01-20 16:51:22 2021-01-20 17:12:41 Telemedici ne Visit Skylar Groves [facility] Medical Office Building 1.2.840.114 350.1.13.10 4.2.7.2.686 [id number] 044 [id number] [facility] 2021-01-20 16:30:00 2021-01-20 16:30:00 Outpatient R SKYLAR GROVES [facility] [id number] [facility] 2021-01-19 10:15:00 2021-01-19 10:15:00 Outpatient R KAYLEY GARCÍA [facility] [id number] [facility] 2021-01-14 00:00:00 2021-01-14 00:00:00 Case Management Kassandra Robledo [facility] 1.2.840.114 350.1.13.10 4.2.7.2.686 [id number] [id number] [facility] 2021-01-14 00:00:00 2021-01-14 00:00:00 Patient Secure Msg Doctor Unassigned, [place] [facility] 1.2840.114 350.1.13.10 4.2.7.2.686 [id number] [facility] 2021-01-12 16:10:00 2021-01-12 19:45:00 Emergency Karin Matthews [facility] 1.2.840.114 350.1.13.10 4.2.7.2.686 [id number] [facility] 2021-01-12 15:20:00 2021-01-12 15:20:00 Outpatient ILEANA CASE [facility] [id number] [facility] 2021-01-12 14:46:57 2021-01-12 15:06:57 Urgent Care Thony Johnson [facility] [place] Medical Office Building 1..840.114 350.1.13.10 4.2.7.2.686 [id number] [facility] 2020-12-26 15:30:00 2020-12-26 16:13:32 Outpatient RAD MATAMOROS [facility] [id number] [facility] 2020-12-26 15:30:00 2020-12-26 16:13:32 Office Visit Rad Serra [facility] NAL BUILDING 1..840.114 350.1.13.10 4.2.7.2.686 [id number] 059 [id number] [facility] 2020-12-26 15:00:32 2020-12-26 16:13:32 Office Visit Rad Serra [facility] Building 1.2.840.114 350.1.13.10 4.2.7.2.686 [id number] [facility] 2020-12-26 15:30:00 2020-12-26 15:30:00 Outpatient RAD MATAMOROS [facility] [id number] [facility] 2020-11-29 00:00:00 2020-11-29 00:00:00 Patient Secure Msg Serra Rad Cuello [facility] BUILDING 1.2.840.114 350.1.13.10 4.2.7.2.686 [id number] [id number] [facility] 2020-11-22 11:00:00 2020-11-22 11:00:00 Outpatient CELINA STONE [facility] [id number] [facility] 2020-11-10 18:42:46 2020-11-10 19:53:43 Urgent Care Alissa Collins [facility] Office Building One 1.2.840.114 350.1.13.10 4.2.7.2.686 [id number] [id number] 2020-11-10 19:00:00 2020-11-10 19:00:00 Outpatient R [facility] [id number] [facility] 2020-10-31 18:52:00 2020-10-31 22:15:00 Emergency Kaycee Méndez [facility] 1.2.840.114 350.1.13.10 4.2.7.2.686 [id number] 2020-10-31 19:00:00 2020-10-31 19:00:00 Outpatient R CARI KAUR [facility] [id number] [facility] 2020-10-31 00:00:00 2020-10-31 00:00:00 Orders Only Doctor Unassigned, [place] [facility] 1.2.840.114 350.1.13.10 4.2.7.2.686 [id number] 2020-10-20 14:02:00 2020-10-20 17:13:00 Emergency Kaycee Méndez [facility] 1.2.840.114 350.1.13.10 4.2.7.2.686 [id number] 2020-10-18 00:00:00 2020-10-18 00:00:00 Patient Secure Msg Prasanna Vargas [facility] BUILDING 1.2.840.114 350.1.13.10 4.2.7.2.686 [id number] 134 [id number] [facility] 2020-10-14 10:00:00 2020-10-14 23:59:00 Hospital Encounter Prasanna Vargas [facility] 1.2.840.114 350.1.13.10 4.2.7.2.686 [id number] 2020-10-14 13:30:00 2020-10-14 13:30:00 Outpatient CELINA STONE [facility] [id number] [facility] 2020-10-11 00:00:00 2020-10-11 00:00:00 Patient Secure Msg Prasanna Vargas [facility] BUILDING 1.2.840.114 350.1.13.10 4.2.7.2.686 [id number] 134 [id number] [facility] 2020-10-11 00:00:00 2020-10-11 00:00:00 Patient Secure Msg Prasanna Vargas [facility] BUILDING 1.2.840.114 350.1.13.10 4.2.7.2.686 [id number] 134 [id number] [facility] 2020-10-09 12:00:00 2020-10-09 15:57:00 Emergency Anna Kim [facility] 1.2.840.114 350.1.13.10 4.2.7.2.686 [id number] [id number] 2020-10-07 00:00:00 2020-10-07 00:00:00 Patient Secure g [facility] 1.2.840.114 350.1.13.10 4.2.7.2.686 [id number] 134 [id number] [facility] 2020-10-07 00:00:00 2020-10-07 00:00:00 Patient Secure g Prasanna Vargas [facility] BUILDING 1.2.840.114 350.1.13.10 4.2.7.2.686 [id number] 134 [id number] [facility] 2020-10-07 00:00:00 2020-10-07 00:00:00 Patient Secure Msg Prasanna Vargas [facility] BUILDING 1.2.840.114 350.1.13.10 4.2.7.2.686 [id number] 134 [id number] [facility] 2020-10-07 00:00:00 2020-10-07 00:00:00 Patient Secure Msg Prasanna Vargas [facility] BUILDING 1.2.840.114 350.1.13.10 4.2.7.2.686 [id number] 134 [id number] [facility] 2020-10-07 00:00:00 2020-10-07 00:00:00 Patient Secure Msg [facility] 1.2.840.114 350.1.13.10 4.2.7.2.686 [id number] 134 [id number] [facility] 2020-10-07 00:00:00 2020-10-07 00:00:00 Patient Secure Msg [facility] 1.2.840.114 350.1.13.10 4.2.7.2.686 [id number] 134 [id number] [facility] 2020-10-07 00:00:00 2020-10-07 00:00:00 Patient Secure Msg [facility] BU[facility] 1.2.840.114 350.1.13.10 4.2.7.2.686 [id number] 134 [id number] [facility] 2020-10-06 08:53:00 2020-10-06 09:46:44 Office Visit Prasanna Vargas [facility] Building 1.2.840.114 350.1.13.10 4.2.7.2.686 [id number] 134 [id number] 2020-10-06 09:30:00 2020-10-06 09:30:00 Outpatient R PRASANNA VARGAS [facility] [id number] [facility] 2020-10-04 14:00:00 2020-10-04 14:00:00 Outpatient CELINA STONE [facility] [id number] [facility] 2020-09-30 10:30:00 2020-09-30 10:30:00 Outpatient CELINA STONE [facility] [id number] [facility] 2020-09-29 13:45:00 2020-09-29 13:45:00 Outpatient PREET KRISHNA [facility] [id number] [facility] 2020-09-06 15:30:00 2020-09-06 15:30:00 Outpatient PRASANNA LOOMIS [facility] [id number] [facility] 2020-09-05 00:00:00 2020-09-05 00:00:00 Patient Secure M[facility] BUILDING 1.2.840.114 350.1.13.10 4.2.7.2.686 [id number] 134 [id number] [facility] 2020-09-02 15:40:00 2020-09-02 15:40:00 Outpatient DARRION QUIROZ HOWARD [facility] [id number] [facility] 2020-08-31 10:30:00 2020-08-31 10:30:00 Outpatient RAD MATAMOROS [facility] [id number] [facility] 2020-08-31 00:00:00 2020-08-31 00:00:00 Patient Secure [facility]asanna Kang [facility] 1.2.840.114 350.1.13.10 4.2.7.2.686 [id number] 134 [id number] [facility] 2020-08-18 09:30:00 2020-08-18 09:30:00 Outpatient PRASANNA LOOMIS [facility] [id number] [facility] 2020-08-11 13:30:00 2020-08-11 13:30:00 Outpatient PRASANNA LOOMIS [facility] [id number] [facility] 2020-08-04 14:00:00 2020-08-04 14:00:00 Outpatient EDER RENEE [facility] [id number] [facility] 2020-07-28 10:30:00 2020-07-28 10:30:00 Outpatient RAD MATAMOROS [facility] [id number] [facility] 2020-06-30 16:15:00 2020-06-30 16:15:00 Outpatient CLAUDETTE CEDILLO [facility] [id number] [facility] 2020-06-17 15:00:00 2020-06-17 15:00:00 Outpatient DARRION QUIROZ HOWARD [facility] [id number] [facility] 2020-06-16 15:30:00 2020-06-16 15:30:00 Outpatient RAD MATAMOROS [facility] [id number] [facility] 2020-06-09 12:30:00 2020-06-09 12:30:00 Outpatient NI YUNG [facility] [id number] [facility] 2020-06-08 08:00:00 2020-06-08 08:00:00 Outpatient NI YUNG [facility] [id number] [facility] 2020-06-02 09:00:00 2020-06-02 09:00:00 Outpatient R RAD SERRA [facility] [id number] [facility] 2020-05-28 10:00:00 2020-05-28 10:00:00 Outpatient R CARI KAUR [facility] [id number] [facility] 2020-05-26 00:00:00 2020-05-26 00:00:00 Patient Secure Msg Claudette Evans [facility] ONE 1.2.840.114 350.1.13.10 4.2.7.2.686 [id number] [facility] 2020-05-24 10:00:00 2020-05-24 10:00:00 Outpatient NI YUNG [facility] [id number] [facility] 2020-05-24 00:00:00 2020-05-24 00:00:00 Patient Secure Msg Doctor Unassigned, [place] [facility] [id number] [id number] [id number] [facility] 2020-05-19 16:30:00 2020-05-19 16:30:00 Outpatient OSITO AMARO [facility] [id number] [facility] 2020-05-17 13:00:00 2020-05-17 13:00:00 Outpatient DARRION QUIROZ HOW[facility] [id number] [facility] 2020-05-16 16:00:00 2020-05-16 16:00:00 Outpatient R CLAUDETTE EVANS [facility] [id number] [facility] 2020-05-09 00:00:00 2020-05-09 00:00:00 Patient Secure Carmelina Hindskacey [facility] ..840.114 350.1.13.10 [id number] [facility] 2020-05-08 10:24:00 2020-05-08 13:03:00 Emergency X OLAMIDE GARVIN [facility] ERT [id number] [facility] 2020-05-03 15:00:00 2020-05-03 15:00:00 [facility] [id number] [facility] 2020-04-30 11:14:00 2020-05-01 15:50:00 Outpatient X RODRIGUEZ HOFF [facility] [place] [id number] [facility] 2020-04-30 10:20:00 2020-04-30 10:20:00 Outpatient R ROSALES SHAY [facility] [id number] [facility] 2020-04-30 10:15:00 2020-04-30 10:15:00 Outpatient R ROSALES SHAY [facility] [id number] [facility] 2020-04-29 00:00:00 2020-04-29 00:00:00 Patient Secure g Osito Hitchcock [facility] ..840.114 350.1.13.10 [id number] [id number] [facility] [id number] [facility] 2020-04-28 14:00:00 2020-04-28 14:00:00 Outpatient R OSITO HITCHCOCK [facility] [id number] [facility] 2020-04-25 16:15:00 2020-04-25 16:15:00 Outpatient R CLAUDETTE EVANS [facility] [id number] [facility] 2020-04-22 00:00:00 2020-04-22 00:00:00 Patient Secure Msg Eder Fletcher [facility] [facility] 1.2.840.114 350.1.13.10 4.2.7.2.686 [id number] [facility] 2020-04-18 10:00:00 2020-04-18 10:00:00 Outpatient OSITO AMARO [facility] [id number] [facility] 2020-04-15 10:30:00 2020-04-15 10:30:00 Outpatient R RAD SERRA [facility] [id number] [facility] 2020-04-12 13:38:00 2020-04-13 16:25:00 Outpatient MARICRUZ [facility]SSAINT [facility] [id number] [facility] 2020-03-17 16:15:00 2020-03-17 16:15:00 Outpatient TETO BRANTLEY [facility] [id number] [facility] 2020-03-04 00:00:00 2020-03-04 00:00:00 Mando Hitchcock Osito [facility] .2.840.114 350.1.13.10 4.2.7.2.686 [id number] 2020-02-25 16:00:00 2020-02-25 16:00:00 Outpatient OSITO AMARO [facility] [id number] [facility] 2020 14:00:00 2020 14:00:00 Outpatient TETO BRANTLEY [facility] [id number] [facility] 2020-02-08 10:30:00 2020-02-08 10:30:00 Outpatient R PRASANNA VARGAS [facility] [id number] [facility] 2020-02-05 00:00:00 2020-02-05 00:00:00 [facility] 1..840.114 350.1.13.10 4.2.7.2.686 [id number] [facility] 2020-02-04 13:30:00 2020-02-04 13:30:00 Outpatient R JACK, OSITO [facility] [id number] [facility] 2020-01-23 10:15:00 2020-01-23 10:15:00 Outpatient R [facility] [id number] [facility] 2020-01-21 13:00:00 2020-01-21 13:00:00 Outpatient R JACK, OSITO [facility] [id number] [facility] 2020-01-14 16:00:00 2020-01-14 16:00:00 Outpatient R JACK OSITO [facility] [id number] [facility] 2020-01-05 13:45:00 2020-01-05 13:45:00 Outpatient R PRASANNA VARGAS [facility] [id number] [facility] 2020-01-05 00:00:00 2020-01-05 00:00:00 Patient Secure Msg Prasanna Vargas [facility] 1..840.114 350.1.13.10 4.2.7.2.686 [id number] [facility] 2019-12-03 10:30:00 2019-12-03 10:30:00 Outpatient R CRICKET TAYLOR [facility] [id number] [facility] 2019-11-27 11:00:00 2019-11-27 11:00:00 Outpatient R TETO CARNES [facility] [id number] [facility] 2019-11-26 00:00:00 2019-11-26 00:00:00 Patient Secure Msg Doctor Unassigned, [place] [facility] 1..840.114 350.1.13.10 4.2.7.2.686 [id number] [facility] 2019-11-25 08:00:2019-11-25 08:00:00 Outpatient R DEYVI TETO [facility] [id number] [facility] 2019-11-23 00:00:00 2019-11-23 00:00:00 Patient Secure Msg Doctor Unassigned, [place] [facility] 1.2.840.114 350.1.13.10 4.2.7.2.686 [id number] [facility] 2019-11-18 10:00:00 2019-11-18 10:00:00 Outpatient Farzana CARNES TETO [facility] [id number] [facility] 2019-11-17 00:00:00 2019-11-17 00:00:00 Patient Secure Msg Doctor Unassigned, [place] [facility] 1.2.840.114 350.1.13.10 4.2.7.2.686 [id number] [facility] 2019-11-13 00:00:00 2019-11-13 00:00:00 Patient Secure Msg Prasanna Vargas [facility] 1.2.840.114 350.1.13.10 4.2.7.2.686 [id number] [facility] 2019-09-02 11:00:00 2019-09-02 11:00:00 Outpatient R CRICKET TAYLOR [facility] [id number] [facility] 2019-08-14 10:15:00 2019-08-14 10:15:00 Outpatient TETO BRANTLEY [facility] [id number] [facility] 2019-08-13 11:00:00 2019-08-13 11:00:00 Outpatient R CRICKET TAYLOR [facility] [id number] [facility] 2019-08-12 09:00:00 2019-08-12 09:00:00 Outpatient R [facility] [id number] [facility] 2019-07-20 16:06:00 2019-07-20 16:06:00 Outpatient PRASANNA HERRERA [facility] [id number] [facility] 2019-07-20 08:15:00 2019-07-20 08:15:00 Outpatient R CRICKET TAYLOR [facility] [id number] [facility] 2019-07-13 08:00:00 2019-07-13 08:00:00 Outpatient R CRICKET TAYLOR [facility] [id number] [facility] 2019-07-12 13:39:00 2019-07-12 13:39:00 Outpatient PRASANNA HERRERA [facility] [id number] [facility] 2019-07-06 13:00:00 2019-07-06 13:00:00 Outpatient R CRICKET TAYLOR [facility] [id number] [facility] 2019-06-13 10:40:46 2019-06-13 12:35:00 Emergency X SARAHI AVILA [facility] ERT [id number] [facility] 2019-05-13 23:07:00 2019-05-14 09:15:00 Outpatient PRASANNA HERRERA [facility] [id number] [facility] Results Test Description Test Time Test Comments Results Result Co mments [facility] 16:[facility]24* Test Item Value Reference Range Interpretation Comme nts LIPASE (test code = 9938409287) 40 U/L 0-220 Lab Interpretation (test cod e = 63244-6) [facility] [id number] 16:27:28EXAM: CT ABDOMEN PELVIS W CONTRAST HISTORY: [...] hypodensity isseen within the right gluteal soft tissue.[facility] CBC WITH [id number] 16:14:18* Test Item Value Reference Range Interpretation Comme nts WBC (test code = 6690-2) 6.32 See_Comment [Automated Zhitu] The system which generated this result transmitted reference range: 4.30 - 11.10 10*3/?L. The reference range was not used to interpret this result as normal/abnormal. RBC (test code = 789-8) 4.61 See_Comment [Automated Zhitu] The system which generated this result transmitted [...] 34.1 g/dL 31.6-35.1 RDW-SD (test code = 29282-0) 42.0 fL 39.0-49.9 RDW-CV (test code = 788-0) 13.0 % 12.0-15.5 PLT (test code = 777-3) 369 See_Comment H [Automated messa ge] The system which generated this result transmitted reference range: 166 - 358 10*3/?L. The reference range was not used to interpret this result as normal/abnormal. MPV (test code = 30852-5) 9.9 fL 9.5-12.9 NRBC/100 WBC (test code = 4563720063) 0.0 See_Comment [Automated Netskope ssage] The system which generated this result transmitted reference range: 0.0 - 10.0 /100 WBCs. The reference range was not used to interpret this result as normal/abnormal. NRBC x10^3 (test code = 9938812478) See_Comment [Automated messa ge] The system which generated this result transmitted reference range: 10*3/?L. The reference range was not used to interpret this result as normal/abnormal. GRAN MAT (NEUT) % (test code = 770-8) 64.8 % IMM GRAN % (test code = 5147370696) 0.50 % LYMPH % (test code = 736-9) 25.3 % MONO % (test code = 5905-5) 4.1 % EOS % (test code = 713-8) 4.7 % BASO % (test code = 706-2) 0.6 % GRAN MAT x10^3(ANC) (test code = 8870388503) 4.09 10*3/uL 1.88-7.09 IMM GRAN x10^3 (test code = 2255375231) 0.03 10*3/uL 0.00-0.06 LYMPH x10^3 (test code = 731-0) 1.60 10*3/uL 1.32-3.29 MONO x10^3 (test code = 742-7) 0.26 10*3/uL 0.33-0.92 L EOS x10^3 (test code = 711-2) 0.30 10*3/uL 0.03-0.39 BASO x10^3 (test code = 704-7) 0.04 10*3/uL 0.01-0.07 Lab Interpretation (test code = 01119-1) [facility] [id number] 15:31:00* Test Item Value Reference Range Interpretation Comme nts POCT PREG (test code = 1605) Negative On board controls acceptable with C Line (test code = 3574) Yes POCT PREG LOT # (test code = 3575) [id number] POCT PREG TEST DATE ( test code = 3576) 2024-07-21 Lab Interpretation (test cod e = 39077-6) Normal [facility] WITH [id number] 04:28:47* Test Item Value Reference Range Interpretation [...] 34.0 g/dL 31.6-35.1 RDW-SD (test code = 01377-3) 40.3 fL 39.0-49.9 RDW-CV (test code = 788-0) 13.1 % 12.0-15.5 PLT (test code = 777-3) 307 See_Comment [Automated messa ge] The system which generated this result transmitted reference range: 166 - 358 10*3/?L. The reference range was not used to interpret this result as normal/abnormal. MPV (test code = 95718-2) 11.0 fL 9.5-12.9 NRBC/100 WBC (test code = 4148593585) 0.0 See_Comment [Automated me ssage] The system which generated this result transmitted reference range: 0.0 - 10.0 /100 WBCs. The reference range was not used to interpret this result as normal/abnormal. NRBC x10^3 (test code = 3176843567) See_Comment [Automated messa ge] The system which generated this result transmitted reference range: 10*3/?L. The reference range was not used to interpret this result as normal/abnormal. GRAN MAT (NEUT) % (test code = 770-8) 52.0 % IMM GRAN % (test code = 6706227930) 0.20 % LYMPH % (test code = 736-9) 38.0 % MONO % (test code = 5905-5) 4.6 % EOS % (test code = 713-8) 4.6 % BASO % (test code = 706-2) 0.6 % GRAN MAT x10^3(ANC) (test code = 4822185762) 2.84 10*3/uL 1.88-7.09 IMM GRAN x10^3 (test code = 6136774351) 0.00-0.06 LYMPH x10^3 (test code = 731-0) 2.07 10*3/uL 1.32-3.29 MONO x10^3 (test code = 742-7) 0.25 10*3/uL 0.33-0.92 L EOS x10^3 (test code = 711-2) 0.25 10*3/uL 0.03-0.39 BASO x10^3 (test code = 704-7) 0.03 10*3/uL 0.01-0.07 Lab Interpretation (test code = 60179-8) Abnormal [facility]. METABOLIC PANEL ([id number])2023-01-12 04:12:43* Test Item Value Reference Range Interpretation Comme nts NA (test code = 6319896932) 137 mmol/L 135-145 K (test code = 3322874807) 3.4 mmol/L 3.5-5.0 L CL (test code = 4636717686) 104 mmol/L 98-108 CO2 TOTAL (test code = 7477819621) 24 mmol/L 23-31 AGAP (test code = 4273381483) 9 2-16 BUN (test code = 9461216183) 2 mg/dL 7-23 L GLUCOSE (test code = 8496647991) 92 mg/dL 70-110 CREATININE (test code = 4570095774) 0.80 mg/dL 0.50-1.04 TOTAL BILI (test code = 8441293455) 0.4 mg/dL 0.1-1.1 CALCIUM (test code = 8204108597) 8.4 mg/dL 8.6-10.6 L T PROTEIN (test code = 5690240328) 6.3 g/dL 6.3-8.2 ALBUMIN (test code = 2985868296) 3.7 g/dL 3.5-5.0 ALK PHOS (test code = 3654041281) 87 U/L 34-122 ALTv (test code = 1742-6) 27 U/L 5-35 AST(SGOT) (test code = 0204379943) 33 U/L 13-40 eGFR (test code = 3266243569) 86.0 mL/min/1.73m2 WESLEY (test code = WESLEY) [...] imaging tests). Lab Interpretation (test code = 74781-1) Abnormal [facility]. METABOLIC PANEL (26943)2023-01-12 04:12:43* Test Item Value Reference Range Interpretation Comme nts NA (test code = 8777416486) 137 mmol/L 135-145 K (test code = 4820385743) 3.4 mmol/L 3.5-5.0 L CL (test code = 8290517796) 104 mmol/L 98-108 CO2 TOTAL (test code = 9845219108) 24 mmol/L 23-31 AGAP (test code = 8058947773) 9 2-16 BUN (test code = 7614411930) 2 mg/dL 7-23 L GLUCOSE (test code = 6335359775) 92 mg/dL 70-110 CREATININE (test code = 3349545166) 0.80 mg/dL 0.50-1.04 TOTAL BILI (test code = 8880675049) 0.4 mg/dL 0.1-1.1 CALCIUM (test code = 4896304134) 8.4 mg/dL 8.6-10.6 L T PROTEIN (test code = 3880599079) 6.3 g/dL 6.3-8.2 ALBUMIN (test code = 6678055764) 3.7 g/dL 3.5-5.0 ALK PHOS (test code = 3102715512) 87 U/L 34-122 ALTv (test code = 1742-6) 27 U/L 5-35 AST(SGOT) (test code = 9723850750) 33 U/L 13-40 eGFR (test code = 8561125200) 86.0 mL/min/1.73m2 WESLEY (test code = WESLEY) [...] imaging tests). Lab Interpretation (test code = 41181-6) [facility]04 BETA HCG<2.39Non- female and male patients: <5 mIU/mL01/11/2023 11:07 PM [facility] Gestational Age ?Range (mIU/mL) 1-10 ?Weeks ?16-09126576-10 Weeks ?79666-28420205-79 Weeks ?1124-23021914-46 Weeks ?3670-733241 Biotin has been reported to cause a negative bias, interpret results relative to patient's use of biotin. Gestational Age ?Range (mIU/mL) 1-10 ?Weeks ?23-13839955-20 Weeks ?92646-23069659-14 Weeks ?0128-68204872-69 Weeks?1531-173042 Biotin has been reported to cause a negative bias, interpret results relative to patient's use of biotin. Gestational Age ?Range (mIU/mL) 1-10 ?Weeks ?86-70140357-80 Weeks ?47495-42862947-64 Weeks ?4281-55556229-88 Weeks ?1531-566643 Biotin has been reported to cause a negative bias, interpretresults relative to patient's use [facility] biotin.[facility] 04:07:04BETA HCG<2.39Non- female and male patients: <5 mIU/mL01/11/2023 11:07 PM [facility] Gestational Age ?Range (mIU/mL) 1-10 ?Weeks ?62-41565589-29 Weeks ?76305-36428944-26 Weeks ?9159-92654880-80 Weeks ?1531-836768 Biotin has been reported to cause a negative bias, interpret results relative topatient's use of biotin. Gestational Age ?Range (mIU/mL) 1-10 ?Weeks ?50-62570168-68 Weeks ?66658-97683250-62 Weeks ?4499-15699568-97 Weeks?1531-873800 Biotin has been reported to cause a negative bias, interpret results relative to patient's use of biotin. Gestational Age ?Range (mIU/mL) 1-10 ?Weeks ?64-02240977-99 Weeks ?82437-97275624-10 Weeks ?2192-74672213-55 Weeks ?3146-439617 Biotin has been reported to cause a negative bias, interpretresults relative to patient's use of biotin.[facility] 2023-01-12 03:22:58* Test Item Value Reference Range Interpretation Comme nts LIPASE (test code = 7282420896) 41 U/L 0-220 Lab Interpretation (test cod e = 66194-8) Normal [facility]2023-09-02 03:22:58* Test Item Value Reference Range Interpretation Comme nts LIPASE (test code = 8480217469) 41 U/L 0-220 Lab Interpretation (test cod e = 03344-9) Normal [facility] [id number] 03:02:00* Test Item Value Reference Range Interpretation Comme nts POCT PREG (test code = 1605) Negative On board controls acceptable with C Line (test code = 3574) Yes POCT PREG LOT # (test code = 3575) [id number] POCT PREG TEST DATE ( test code = 3576) 05/15/2024 Lab Interpretation (test cod e = 65591-5) Normal [facility] [id number] 03:02:00* Test Item Value Reference Range Interpretation Comme nts POCT PREG (test code = 1605) Negative On board controls acceptable with C Line (test code = 3574) Yes POCT PREG LOT # (test code = 3575) [id number] POCT PREG TEST DATE ( test code = 3576) 05/15/2024 Lab Interpretation (test cod e = 43695-6) [facility], [id number] 00:23:34* Test Item Value Reference Range Interpretation Comme nts PREG SERUM (test code = 3875081316) Negative WESLEY (test code = WESLEY) Less than 10 IU/L. ?If low titer or ectopic is suspected, resubmit specimen in 48-72 hours. [facility]OLIC PAN[facility] (99748)2022-07-31 23:58:12* Test Item Value Reference Range Interpretation Comme nts NA (test code = 4251324201) 140 mmol/L 135-145 K (test code = 7848973999) 3.6 mmol/L 3.5-5.0 CL (test code = 8454180067) 106 mmol/L 98-108 CO2 TOTAL (test code = 5876929215) 21 mmol/L 23-31 L AGAP (test code = 9282238691) 13 2-16 BUN (test code = 5279887424) 8 mg/dL 7-23 GLUCOSE (test code = 7827846621) 90 mg/dL 70-110 CREATININE (test code = 1965604960) 0.90 mg/dL 0.50-1.04 TOTAL BILI (test code = 2743497557) 0.5 mg/dL 0.1-1.1 CALCIUM (test code = 0591972703) 9.0 mg/dL 8.6-10.6 T PROTEIN (test code = 3609909523) 7.8 g/dL 6.3-8.2 ALBUMIN (test code = 5801669947) 4.6 g/dL 3.5-5.0 ALK PHOS (test code = 9950435829) 63 U/L 34-122 ALTv (test code = 1742-6) 23 U/L 5-35 AST(SGOT) (test code = 5365925082) 27 U/L 13-40 eGFR (test code = 8033734844) 75.1 mL/min/1.73m2 WESLEY (test code = WESLEY) [...] imaging tests). Lab Interpretation (test code = 11601-3) [facility] 23:57:32* Test Item Value Reference Range Interpretation Comme nts LIPASE (test code = 5832125483) 55 U/L 0-220 Lab Interpretation (test cod e = 95559-2) Normal [facility] WITH [id number] 23:47:31* Test Item Value Reference Range Interpretation Comme nts WBC (test code = 6690-2) 5.64 See_Comment [Automated Zhitu] The system which generated this result transmitted reference range: 4.30 - 11.10 10*3/?L. The reference range was not used to interpret this result as normal/abnormal. RBC (test code = 789-8) 4.51 See_Comment [Thoughtful Movers] The system which generated this result transmitted [...] 32.6 g/dL 31.6-35.1 RDW-SD (test code = 39501-9) 42.5 fL 39.0-49.9 RDW-CV (test code = 788-0) 13.0 % 12.0-15.5 PLT (test code = 777-3) 339 See_Comment [Automated messa ge] The system which generated this result transmitted reference range: 166 - 358 10*3/?L. The reference range was not used to interpret this result as normal/abnormal. MPV (test code = 33157-0) 9.4 fL 9.5-12.9 L NRBC/100 WBC (test code = 0994136853) 0.0 See_Comment [Automated Netskope ssage] The system which generated this result transmitted reference range: 0.0 - 10.0 /100 WBCs. The reference range was not used to interpret this result as normal/abnormal. NRBC x10^3 (test code = 6505021017) See_Comment [Automated messa ge] The system which generated this result transmitted reference range: 10*3/?L. The reference range was not used to interpret this result as normal/abnormal. GRAN MAT (NEUT) % (test code = 770-8) 51.2 % IMM GRAN % (test code = 7062913470) 0.20 % LYMPH % (test code = 736-9) 36.5 % MONO % (test code = 5905-5) 5.7 % EOS % (test code = 713-8) 5.9 % BASO % (test code = 706-2) 0.5 % GRAN MAT x10^3(ANC) (test code = 9503221826) 2.89 10*3/uL 1.88-7.09 IMM GRAN x10^3 (test code = 0748766475) 0.00-0.06 LYMPH x10^3 (test code = 731-0) 2.06 10*3/uL 1.32-3.29 MONO x10^3 (test code = 742-7) 0.32 10*3/uL 0.33-0.92 L EOS x10^3 (test code = 711-2) 0.33 10*3/uL 0.03-0.39 BASO x10^3 (test code = 704-7) 0.03 10*3/uL 0.01-0.07 Lab Interpretation (test code = 81177-3) [facility]normal [facility] [id number] 16:14:38* Test Item Value Reference Range Interpretation Comme nts POCT Molecular Strep (test c ode = 94963-0) Negative Negative Lab Interpretation (test cod e = 02032-0) Normal [facility]. METABOLIC PANEL (97631)2022-05-05 19:35:37* Test Item Value Reference Range Interpretation Comme nts NA (test code = 9495600076) 139 mmol/L 135-145 K (test code = 7252647574) 4.4 mmol/L 3.5-5.0 CL (test code = 9018918597) 104 mmol/L 98-108 CO2 TOTAL (test code = 7013193812) 22 mmol/L 23-31 L AGAP (test code = 0522051262) 2-16 BUN (test code = 1755566211) 11 mg/dL 7-23 GLUCOSE (test code = 7673131104) 95 mg/dL 70-110 CREATININE (test code = 0723951820) 0.71 mg/dL 0.50-1.04 TOTAL BILI (test code = 9537481798) 0.4 mg/dL 0.1-1.1 CALCIUM (test code = 0063484280) 9.1 mg/dL 8.6-10.6 T PROTEIN (test code = 5606827934) 7.9 g/dL 6.3-8.2 ALBUMIN (test code = 1574688691) 4.7 g/dL 3.5-5.0 ALK PHOS (test code = 8582849600) 114 U/L 34-122 ALTv (test code = 1742-6) 21 U/L 5-35 AST(SGOT) (test code = 2100219179) 21 U/L 13-40 eGFR (test code = 0405395930) mL/min/1.73m2 WESLEY (test code = WESLEY) Association [...] imaging tests). Lab Interpretation (test code = 58396-6) Abnormal [facility] WITH [id number] 19:25:37* Test Item Value Reference Range Interpretation Comme nts WBC (test code = 6690-2) See_Comment [Thoughtful Movers] The system which generated this result transmitted reference range: 4.30 - 11.10 10*3/?L. The reference range was not used to interpret this result as normal/abnormal. RBC (test code = 789-8) See_Comment [Thoughtful Movers] The system which generated this result transmitted [...] 32.9 g/dL 31.6-35.1 RDW-SD (test code = 97573-1) 41.7 fL 39.0-49.9 RDW-CV (test code = 788-0) 12.7 % 12.0-15.5 PLT (test code = 777-3) See_Comment H [Automated messa ge] The system which generated this result transmitted reference range: 166 - 358 10*3/?L. The reference range was not used to interpret this result as normal/abnormal. MPV (test code = 52000-2) 8.8 fL 9.5-12.9 L NRBC/100 WBC (test code = 5930845889) See_Comment [Automated Netskope ssage] The system which generated this result transmitted reference range: 0.0 - 10.0 /100 WBCs. The reference range was not used to interpret this result as normal/abnormal. NRBC x10^3 (test code = 7427023140) See_Comment [Automated messa ge] The system which generated this result transmitted reference range: 10*3/?L. The reference range was not used to interpret this result as normal/abnormal. GRAN MAT (NEUT) % (test code = 770-8) 56.1 % IMM GRAN % (test code = 1022821013) 0.40 % LYMPH % (test code = 736-9) 29.9 % MONO % (test code = 5905-5) 5.4 % EOS % (test code = 713-8) 7.8 % BASO % (test code = 706-2) 0.4 % GRAN MAT x10^3(ANC) (test code = 8499616176) 3.75 10*3/uL 1.88-7.09 IMM GRAN x10^3 (test code = 5120554842) 0.03 10*3/uL 0.00-0.06 LYMPH x10^3 (test code = 731-0) 2.00 10*3/uL 1.32-3.29 MONO x10^3 (test code = 742-7) 0.36 10*3/uL 0.33-0.92 EOS x10^3 (test code = 711-2) 0.52 10*3/uL 0.03-0.39 H BASO x10^3 (test code = 704-7) 0.03 10*3/uL 0.01-0.07 Lab Interpretation (test code = 55709-5) [facility] [id number] 19:00:00* Test Item Value Reference Range Interpretation Comme nts POCT PREG (test code = 1605) negative On board controls acceptable with C Line (test code = 3574) present POCT PREG LOT # (test code = 3575) [id number] POCT PREG TEST DATE ( test code = 3576) 08-11-2023 Lab Interpretation (test cod e = 41770-5) Normal [facility] WITH [id number] 15:21:11* Test Item Value Reference Range Interpretation [...] 33.0 g/dL 31.6-35.1 RDW-SD (test code = 00605-0) 42.6 fL 39.0-49.9 RDW-CV (test code = 788-0) 12.9 % 12.0-15.5 PLT (test code = 777-3) See_Comment H [Automated messa ge] The system which generated this result transmitted reference range: 166 - 358 10*3/?L. The reference range was not used to interpret this result as normal/abnormal. MPV (test code = 37454-1) 9.1 fL 9.5-12.9 L NRBC/100 WBC (test code = 0766117814) See_Comment [Automated me ssage] The system which generated this result transmitted reference range: 0.0 - 10.0 /100 WBCs. The reference range was not used to interpret this result as normal/abnormal. NRBC x10^3 (test code = 3730692590) See_Comment [Automated messa ge] The system which generated this result transmitted reference range: 10*3/?L. The reference range was not used to interpret this result as normal/abnormal. GRAN MAT (NEUT) % (test code = 770-8) 56.8 % IMM GRAN % (test code = 3015989321) 0.30 % LYMPH % (test code = 736-9) 29.5 % MONO % (test code = 5905-5) 4.3 % EOS % (test code = 713-8) 8.3 % BASO % (test code = 706-2) 0.8 % GRAN MAT x10^3(ANC) (test code = 8075532982) 3.57 10*3/uL 1.88-7.09 IMM GRAN x10^3 (test code = 4904289763) 0.00-0.06 LYMPH x10^3 (test code = 731-0) 1.85 10*3/uL 1.32-3.29 MONO x10^3 (test code = 742-7) 0.27 10*3/uL 0.33-0.92 L EOS x10^3 (test code = 711-2) 0.52 10*3/uL 0.03-0.39 H BASO x10^3 (test code = 704-7) 0.05 10*3/uL 0.01-0.07 Lab Interpretation (test code = 83643-4) Abnormal [facility]. METABOLIC PANEL (82535)2022-04-26 15:12:13* Test Item Value Reference Range Interpretation Comme nts NA (test code = 7876294455) 141 mmol/L 135-145 K (test code = 3869414271) 3.4 mmol/L 3.5-5.0 L CL (test code = 8749424246) 104 mmol/L 98-108 CO2 TOTAL (test code = 4308228378) 23 mmol/L 23-31 AGAP (test code = 3875988907) 2-16 BUN (test code = 9881337672) 9 mg/dL 7-23 GLUCOSE (test code = 7264061897) 101 mg/dL 70-110 CREATININE (test code = 0997427889) 0.82 mg/dL 0.50-1.04 TOTAL BILI (test code = 6932486781) 0.7 mg/dL 0.1-1.1 CALCIUM (test code = 9096149995) 9.3 mg/dL 8.6-10.6 T PROTEIN (test code = 7527150516) 8.1 g/dL 6.3-8.2 ALBUMIN (test code = 0812534121) 4.7 g/dL 3.5-5.0 ALK PHOS (test code = 2784620630) 108 U/L 34-122 ALTv (test code = 1742-6) 24 U/L 5-35 AST(SGOT) (test code = 1938887187) 49 U/L 13-40 H eGFR (test code = 3539629848) mL/min/1.73m2 WESLEY (test code = WESLEY) Association [...] imaging tests). Lab Interpretation (test code = 53242-5) Abnormal [facility] [id number] 14:45:00* Test Item Value Reference Range Interpretation Comme nts POCT PREG (test code = 1605) negative On board controls acceptable with C Line (test code = 3574) present POCT PREG LOT # (test code = 3575) [id number] POCT PREG TEST DATE ( test code = 3576) 08/11/2023 Lab Interpretation (test cod e = 88860-2) Normal [facility] [id number] 01:22:00* Test Item Value Reference Range Interpretation Comme nts POCT PREG (test code = 1605) Negative On board controls acceptable with C Line (test code = 3574) Present POCT PREG LOT # (test code = 3575) [id number] POCT PREG TEST DATE ( test code = 3576) 08-11-2023 Lab Interpretation (test cod e = 61482-0) Normal [facility] METABOLIC PANEL (NA, K, CL, CO2, GLUCOSE, BUN, CREATININE, CA)2022-04-07 23:01:10* Test Item Value Reference Range Interpretation Comme nts NA (test code = 7809019971) 138 mmol/L 135-145 K (test code = 1373601837) 4.3 mmol/L 3.5-5.0 CL (test code = 4505744075) 107 mmol/L 98-108 CO2 TOTAL (test code = 5699078957) 20 mmol/L 23-31 L AGAP (test code = 6469913715) 2-16 BUN (test code = 2210062032) 9 mg/dL 7-23 GLUCOSE (test code = 9532329789) 204 mg/dL 70-110 H CREATININE (test code = 1957074624) 0.74 mg/dL 0.50-1.04 CALCIUM (test code = 9246962153) 9.1 mg/dL 8.6-10.6 eGFR (test code = 5871627825) mL/min/1.73m2 WESLEY (test code = WESLEY) Association [...] imaging tests). Lab Interpretation (test code = 36962-7) Abnormal [facility] WITH [id number] 22:57:34* Test Item Value Reference Range Interpretation Comme nts WBC (test code = 6690-2) See_Comment [Automated Zhitu] The system which generated this result transmitted reference range: 4.30 - 11.10 10*3/?L. The reference range was not used to interpret this result as normal/abnormal. RBC (test code = 789-8) See_Comment [Automated Zhitu] The system which generated this result transmitted [...] 33.5 g/dL 31.6-35.1 RDW-SD (test code = 35947-8) 42.9 fL 39.0-49.9 RDW-CV (test code = 788-0) 13.4 % 12.0-15.5 PLT (test code = 777-3) See_Comment H [Automated messa ge] The system which generated this result transmitted reference range: 166 - 358 10*3/?L. The reference range was not used to interpret this result as normal/abnormal. MPV (test code = 58493-7) 8.9 fL 9.5-12.9 L NRBC/100 WBC (test code = 6879618382) See_Comment [Automated Netskope ssage] The system which generated this result transmitted reference range: 0.0 - 10.0 /100 WBCs. The reference range was not used to interpret this result as normal/abnormal. NRBC x10^3 (test code = 5471971041) See_Comment [Automated messa ge] The system which generated this result transmitted reference range: 10*3/?L. The reference range was not used to interpret this result as normal/abnormal. GRAN MAT (NEUT) % (test code = 770-8) 88.7 % IMM GRAN % (test code = 1947426728) 0.70 % LYMPH % (test code = 736-9) 9.4 % MONO % (test code = 5905-5) 0.9 % EOS % (test code = 713-8) 0.1 % BASO % (test code = 706-2) 0.2 % GRAN MAT x10^3(ANC) (test code = 8982716623) 7.81 10*3/uL 1.88-7.09 H IMM GRAN x10^3 (test code = 7959080514) 0.06 10*3/uL 0.00-0.06 LYMPH x10^3 (test code = 731-0) 0.83 10*3/uL 1.32-3.29 L MONO x10^3 (test code = 742-7) 0.08 10*3/uL 0.33-0.92 L EOS x10^3 (test code = 711-2) 0.03-0.39 L BASO x10^3 (test code = 704-7) 0.01-0.07 Lab Interpretation (test code = 58005-4) Abnormal [facility] MATB8300-69-16 14:07:00* Test Item Value Reference Range Interpretation Comme nts POCT PREG (test code = 1605) negative On board controls acceptable with C Line (test code = 3574) present POCT PREG LOT # (test code = 3575) [id number] POCT PREG TEST DATE ( test code = 3576) 08/11/2023 Lab Interpretation (test cod e = 02123-8) Normal [facility] SUYQ8313-87-64 13:52:00* Test Item Value Reference Range Interpretation Comme nts POCT PREG (test code = 1605) negative On board controls acceptable with C Line (test code = 3574) present Lab Interpretation (test cod e = 73291-1) Normal [facility] LFTJ9348-89-21 14:59:00* Test Item Value Reference Range Interpretation Comme nts POCT PREG (test code = 1605) negative On board controls acceptable with C Line (test code = 3574) yes POCT PREG LOT # (test code = 3575) [id number] POCT PREG TEST DATE ( test code = 3576) 07/11/2023 Lab Interpretation (test cod e = 23879-7) Normal [facility]. METABOLIC PANEL (10764)2022 17:51:43* Test Item Value Reference Range Interpretation Comme nts NA (test code = 5514761091) 139 mmol/L 135-145 K (test code = 5134392603) 4.1 mmol/L 3.5-5 CL (test code = 1895642187) 104 mmol/L 98-108 CO2 TOTAL (test code = 8983342890) 22 mmol/L 23-31 L AGAP (test code = 1409700592) 2-16 BUN (test code = 8634565669) 7 mg/dL 7-23 GLUCOSE (test code = 4874891260) 114 mg/dL 70-110 H CREATININE (test code = 0456265866) 0.69 mg/dL 0.5-1.04 TOTAL BILI (test code = 1100412675) 0.4 mg/dL 0.1-1.1 CALCIUM (test code = 6749613468) 9.7 mg/dL 8.6-10.6 T PROTEIN (test code = 2194930959) 7.2 g/dL 6.3-8.2 ALBUMIN (test code = 5007665034) 4.6 g/dL 3.5-5 ALK PHOS (test code = 5746256118) 65 U/L 34-122 ALTv (test code = 1742-6) 15 U/L 5-35 AST(SGOT) (test code = 4854365089) 19 U/L 13-40 eGFR (test code = 5268008446) mL/min/1.73m2 WESLEY (test code = WESLEY) Association [...] imaging tests). Lab Interpretation (test code = 78171-3) Abnormal [facility] WITH DOWQ8224-77-69 17:40:24* Test Item Value Reference Range Interpretation Comme nts WBC (test code = 6690-2) See_Comment [Automated Credoraxa ge] The system which generated this result transmitted reference range: 4.30 - 11.10 10*3/?L. The reference range was not used to interpret this result as normal/abnormal. RBC (test code = 789-8) See_Comment [Automated Credoraxa ge] The system which generated this result [...] 33.3 g/dL 31.6-35.1 RDW-SD (test code = 63764-7) 43.1 fL 39-49.9 RDW-CV (test code = 788-0) 13.2 % 12-15.5 PLT (test code = 777-3) See_Comment [Automated Credoraxa ge] The system which generated this result transmitted reference range: 166 - 358 10*3/?L. The reference range was not used to interpret this result as normal/abnormal. MPV (test code = 06851-4) 9.5 fL 9.5-12.9 NRBC/100 WBC (test code = 3075760515) See_Comment [Automated Netskope ssage] The system which generated this result transmitted reference range: 0.0 - 10.0 /100 WBCs. The reference range was not used to interpret this result as normal/abnormal. NRBC x10^3 (test code = 0947795898) See_Comment [Automated messa ge] The system which generated this result transmitted reference range: 10*3/?L. The reference range was not used to interpret this result as normal/abnormal. GRAN MAT (NEUT) % (test code = 770-8) 57.8 % IMM GRAN % (test code = 6728034860) 0.20 % LYMPH % (test code = 736-9) 30.8 % MONO % (test code = 5905-5) 5.1 % EOS % (test code = 713-8) 5.6 % BASO % (test code = 706-2) 0.5 % GRAN MAT x10^3(ANC) (test code = 5855174729) 3.61 10*3/uL 1.88-7.09 IMM GRAN x10^3 (test code = 0567040418) 0-0.06 LYMPH x10^3 (test code = 731-0) 1.92 10*3/uL 1.32-3.29 MONO x10^3 (test code = 742-7) 0.32 10*3/uL 0.33-0.92 L EOS x10^3 (test code = 711-2) 0.35 10*3/uL 0.03-0.39 BASO x10^3 (test code = 704-7) 0.03 10*3/uL 0.01-0.07 Lab Interpretation (test code = 62698-6) [facility]:27:[facility]* Test Item Value Reference Range Interpretation Comme nts POCT PREG (test code = 1605) negative On board controls acceptable with C Line (test code = 3574) present POCT PREG LOT # (test code = 3575) [id number] POCT PREG TEST DATE ( test code = 357) Lab Interpretation (test cod e = 80777-1) [facility] 12:45:21* Test Item Value Reference Range Interpretation Comme nts LIPASE (test code = 1471544866) 41 U/L 0-220 Lab Interpretation (test cod e = 40202-9) [facility] VSLE4234-15-33 10:57:00* Test Item Value Reference Range Interpretation Comme nts POCT PREG (test code = 1605) Negative On board controls acceptable with C Line (test code = 3574) Present POCT PREG LOT # (test code = 3575) [id number] POCT PREG TEST DATE ( test code = 3576) 03/12/2023 Lab Interpretation (test cod e = 50688-3) Normal [facility] METABOLIC PANEL (NA, K, CL, CO2, GLUCOSE, BUN, CREATININE, CA)2022-01-18 10:56:51* Test Item Value Reference Range Interpretation Comme nts NA (test code = 4055836586) 137 mmol/L 135-145 K (test code = 6301638768) 4.6 mmol/L 3.5-5 Slight hemolysis CL (test code = 4679646266) 108 mmol/L 98-108 CO2 TOTAL (test code = 8309523753) 22 mmol/L 23-31 L AGAP (test code = 2342680911) 2-16 BUN (test code = 7516368424) 11 mg/dL 7-23 Slight hemolysis GLUCOSE (test code = 5493420836) 83 mg/dL 70-110 CREATININE (test code = 6825035332) 0.68 mg/dL 0.5-1.04 CALCIUM (test code = 8530251912) 8.8 mg/dL 8.6-10.6 eGFR (test code = 9113803050) mL/min/1.73m2 WESLEY (test code = WESLEY) Association [...] imaging tests). Lab Interpretation (test code = 96657-0) [facility]12742[facility] (ALB,T.PRO,BILI T,BU/BC,ALT,AST,ALK PHOS)2022-01-18 10:56:51* Test Item Value Reference Range Interpretation Comme nts TOTAL BILI (test code = 4760015897) 0.6 mg/dL 0.1-1.1 BILI UNCON (test code = 3534885439) 0.1 mg/dL 0.1-1.1 BILI CONJ (test code = 6409327609) 0.0 mg/dL 0-0.3 T PROTEIN (test code = 5656569524) 8.6 g/dL 6.3-8.2 H ALBUMIN (test code = 2360602754) 5.1 g/dL 3.5-5 H ALK PHOS (test code = 7083334752) 79 U/L 34-122 ALTv (test code = 1742-6) 117 U/L 5-35 H AST(SGOT) (test code = 6191015709) 163 U/L 13-40 H Lab Interpretation (test cod e = 07802-3) [facility]normal [facility], [id number] 10:54:25* Test Item Value Reference Range Interpretation Comme nts PREG SERUM (test code = 2763442587) Negative WESLEY (test code = WESLEY) Less than 10 IU/L. ?If low titer or ectopic is suspected, resubmit specimen in 48-72 hours. [facility] WITH RJKF0753-76-61 10:40:49* Test Item Value Reference Range Interpretation [...] 33.6 g/dL 31.6-35.1 RDW-SD (test code = 55173-7) 45.3 fL 39-49.9 RDW-CV (test code = 788-0) 14.5 % 12-15.5 PLT (test code = 777-3) See_Comment [Automated messa ge] The system which generated this result transmitted reference range: 166 - 358 10*3/?L. The reference range was not used to interpret this result as normal/abnormal. MPV (test code = 29276-0) 9.5 fL 9.5-12.9 NRBC/100 WBC (test code = 6741900424) See_Comment [Automated Netskope ssage] The system which generated this result transmitted reference range: 0.0 - 10.0 /100 WBCs. The reference range was not used to interpret this result as normal/abnormal. NRBC x10^3 (test code = 9260632856) See_Comment [Automated messa ge] The system which generated this result transmitted reference range: 10*3/?L. The reference range was not used to interpret this result as normal/abnormal. GRAN MAT (NEUT) % (test code = 770-8) 47.6 % IMM GRAN % (test code = 7028854927) 0.60 % LYMPH % (test code = 736-9) 39.9 % MONO % (test code = 5905-5) 5.9 % EOS % (test code = 713-8) 5.3 % BASO % (test code = 706-2) 0.7 % GRAN MAT x10^3(ANC) (test code = 5545495348) 4.45 10*3/uL 1.88-7.09 IMM GRAN x10^3 (test code = 3789944083) 0.06 10*3/uL 0-0.06 LYMPH x10^3 (test code = 731-0) 3.74 10*3/uL 1.32-3.29 H MONO x10^3 (test code = 742-7) 0.55 10*3/uL 0.33-0.92 EOS x10^3 (test code = 711-2) 0.50 10*3/uL 0.03-0.39 H BASO x10^3 (test code = 704-7) 0.07 10*3/uL 0.01-0.07 Lab Interpretation (test code = 24265-2) Abnormal [facility] VTUL0866-55-57 18:31:00* Test Item Value Reference Range Interpretation Comme nts POCT PREG (test code = 1605) Negative On board controls acceptable with C Line (test code = 3574) Yes POCT PREG LOT # (test code = 3575) POCT PREG TEST DATE ( test code = 3576) [facility] URINALYSIS W/O SPECIFIC VUUIZYH2287-82-19 18:31:00* Test Item Value Reference Range Interpretation [...] = 3257) Trace Negative - Negati ve [facility] Consult Notes Date/Time Note Provider Source 2023-01-12 00:12:43 1996-83-07I80:12:43A ssociated Order(s): CONSULT GENERAL SURGERY TRAUMA/ACS Surgery [...] symptomatic cholelithiasis 1.5 months ago at OSH ([place]). Pt states that she has had persistent RUQ pain with nausea and po intolerance along with intermittent chills and vomiting since surgery. Was seen by PCP and instructed to come to [facility] ED for further evaluation. Review of [...] N/A 07/21/2019 Surgeon: Prasanna Vargas MD; Location: [facility] Labor and Delivery OR Location TUBAL LIGATION N/A 07/21/2019 Surgeon: Prasanna Vargas MD; Location: [facility] Labor and Delivery OR Location [...] skin once every month. 1 mL 3 Gmgqgwujxo-Cgatryedhyuvq-Rvui (FIORICET) 50-300-40 mg per capsule Take 1 [...] symptomatic cholelithiasis 1.5 months ago at OSH ([place]).Plan:[facility] serviceConsult IR for percutaneous drainage of [...] Surgery, and Surgical Critical Care In-house Pager: [id number] arqtVU0355656Pdcwcr, Amy1.2.840.270491.1.13.104.2.7.2.213704Hhb naxLukKQ1671-09-34R30:39:26Consult noteTXT1.2.840.649281.1.13.104.2.7.2.55295 9|[id number] for patient xqsf51906-4Vdaiuoy noteLNUTMBUNM CARRIE TINGLEY [facility] - [address] AvxvQtmhmkqukZydrtcgubJWJT4546711996BCKVHE UZYGRUDPAEIKZQTF6143-63-52V35:39:261.2.840 .982652.1.72.3.15|1.2.840.258420.1.13.104. 2.7.2.727879_[id number] [facility] - [facility] History and Physical Notes Date/Time Note Provider Source 2023-01-12 01:05:04 3828-26-59C75:05:04F ormatting of this note might be different from the original.01/12/23 1:05 AM Please refer to consult note written by Rodolfo Riggins DO on 01/12/23 for complete H&P.NITESH Gandara-2 Surgery Resident ssociated attestation - Mirella Vergara MD - 01/12/2023 1:47 AM CDT Kqonq51308-3Fyodizl and physical asnlNC6453236Wzdxbx, Amy1.2.840.320938.1.13.104.2.7.2.303790Zfu qjmJduGN9876-60-89Y87:47:52History and physical noteTXT1.2.840.622214.1.13.104.2.7.2.75915 9|2339484231ZMYltbmycjx for patient biyd23800-8Zmxcryf and physical noteLNUT[address] ObquPiycogfttWjykhuaujSQIZ9018785803OOSEXU ZTHPMVJFTQENJEBI4133-41-80A99:47:521.2.840 .406158.1.72.3.15|1.2.840.624646.1.13.104. 2.7.2.727879_[id number] [facility] Notes Date/Time Note Provider Source 2023-08-27 16:08:07 2900-94-49M35:08:07F ormatting of this note is different from the original.TRANSITIONAL CARE MANAGEMENT ASSESSMENT08/27/2023karmailiana DysonUlmwgbh495875CUmvjh Nelia Dyson is a 28 year old /White female was admitted on 08/23/23 to [facility], [address] She was discharged on 08/24/23 with discharge disposition of HR- Routine Discharge.Admitting Physician: Mee Lim Diagnosis: Cerebrovascular accident (CVA), unspecified mechanism [Pt. Voiced her thoughts about [facility], not pleased with care provided.Plans to not f/u with [facility].Pt. Inquired about results MY chart issue due to pt. Came in the hospital not alert. Instructed via the AVS it is under the other name Dominick Adamson 08/23/2023 - 08/24/2023 Neurology/Neurological Surgery ([address]). Pt. Access via the AVS page 4 there.Pt. Has gone under this chart Karis with no results found. Gave HIM contact number for further assistance.No linked episodesTCM Atk-lsgi-cb-face outreach documentation:Discharge AssessmentChart Assessed: 08/27/23TCM Outreach Completed: [...] 9:30 AM ADC MOBILE MRI 1 (1.5T) [facility], [facility] [phone] signed by Marlys Odell LVN at 08/27/2023 4:11 PM YJM79167-3Bofvrnytc encounter KjzaXE6861-66-25Y36:11:06Telephon e encounter NoteTXT1.2.840.985068.1.13.104.2. 7.2.290493|[id number] for patient wmqe48392-4EgtoRIDFAUXNPLPXdqgmrj ed C-CDA narrative tvey957048729Fsgugkvcxd Rivas [address] PmwkIlfxzqjegOlssradskBMMN0954872 636ZCXDXJMTNTRVGCHMXKHZEQ2728-24- 16T16:11:061.2.840.048375.1.72.3. 15|1.2.840.776128.1.13.104.2.7.2. 727879_[id number] Marlys Odell LVN [facility] 2023-08-26 13:35:01 9600-77-54N97:35:01F ormatting of this note might be different from the original.TRANSITIONAL CARE MANAGEMENT ASSESSMENT4Angiliana DysonLighylc261851OHijkh Nelia Dyson is a 28 year old /White female was admitted on 08/23/[address] She was discharged on 08/24/23 with discharge disposition of HR- Routine Discharge.Admitting Physician: Mee Lim Diagnosis: Cerebrovascular accident (CVA), unspecified mechanism [I63.9]No contact.No linked episodesTCM Yog-bjqf-le-face outreach documentation:Future Appointments: 85441-6Hyjemrzyl encounter WpspAN2383-93-94J10:37:22Telephon e encounter NoteTXT1.2.840.270882.1.13.104.2. 7.2.848834|[id number] for patient qspp89233-6UdudGFHWHDFQCOHIpxtghn ed C-CDA narrative [address]TXTX[address] 605GIQCHDKDSPBIMCOGJYJRGU7930-66- 15T13:37:221.2.840.467743.1.72.3. 15|1.2.840.036443.1.13.104.2.7.2. 727879_[id number] [facility] 2023-05-19 12:16:00 0913-89-12W02:16:00F ormatting of this note might be different [...] with steady gait, in no apparent distress. 10847-1Yziibhyck department KpxtVP9113-71-77B10:20:15[facility] NoteTXT1.2.840.490160.1.13.104.2. 7.2.207330|[id number] for patient yhxd16371-4AmvlOYATUJSONUZZttkwnb ed C-CDA narrative [address]TXTX[address] 056KFHVPYKZYQZNDPSPCLOAGS2487-58- 07T12:20:151.2.840.811847.1.72.3. 15|1.2.840.088742.1.13.104.2.7.2. 727879_[id number] [facility] 2023-05-19 08:50:00 1683-23-69O99:50:00F ormatting of this note might be different from the original.Patient came in with complaints of epigastric pain that radiates to her left shoulder associated with nausea and vomiting since a couple of weeks now. Patient states that she was worked up in [facility] 2 weeks ago and found nothing wrong, just referred to a GI doctor but she hasn't seen one because she has no insurance. 34291-7Kupobkuoj department Triage hyrgQV4451-67-05W58:01:49Emergen y department Triage noteTXT1.2.840.907789.1.13.104.2. 7.2.758598|[id number] for patient arek26027-2Fulcrlouu department NoteLNNARRATIVEFormatted C-CDA narrative pfhb923142299Ywhrvjdj C Heredia RN[address] BmlmXhtqrmmtxNvxjvcpfcDWWF7167936 593JRSEUIYCBHBLFENQIHGTIE3547-77- 07T09:01:491.2.840.791774.1.72.3. 15|1.2.840.930816.1.13.104.2.7.2. 727879_[id number] Syeda Ruiz RN [facility] 2023-01-16 10:56:45 8855-43-30V84:56:45F ormatting of this note is different from the original.TRANSITIONAL CARE MANAGEMENT ASSESSMENT01/16/2023 Nikko DysonPlyeclq718183VDauxh Nelia Dyson is a 27 year old /White female was admitted on 01/11/23 to [facility]. She was discharged on 01/15/23 with discharge disposition of HR- Routine Discharge.Admitting Physician: Misty Steele Diagnosis: Postprocedural intraabdominal abscess [T81.43XA]Pt. Verbalized understanding discharge instructions. Plans to f/u with pcp.Linked Episodes Type: Episode: Status: Noted: Resolved: Last update: Updated by: TRANSITION OF CARE tcm Active 01/16/2023 01/16/2023 10:56 AM Marlys Odell LVN Comments: TCM Rov-zokg-jw-face outreach documentation:Discharge AssessmentChart Assessed: 01/16/23TCM Outreach Completed: [...] with the names or descriptions of any xttm-ypq-ohcboob or supplements you are currently taking?: YesSuppliesDid [...] or concerns at this time?: NoFuture Appointments: 82245-2Cdbovuzqu encounter SgkbWY5776-84-71G86:57:41Telephon e encounter NoteTXT1.2.840.953301.1.13.104.2. 7.2.151494|[id number] for patient ygft62701-2JowhQN240566587Otutshc tte Odell [address] IuzxQpoqtisadAiuzueujlGLRN8207940 724PLMNLITLWABIDJCFPEUSOC2944-26- 06T10:57:411.2.840.357823.1.72.3. 15|1.2.840.741336.1.13.104.2.7.2. 727879_[id number] Marlys Odell [facility] 2023-01-15 18:18:34 1044-62-20Y70:18:34F ormatting of this note might be different from the original.Patient is cleared for discharge. Problem: Infection RiskGoal: Absence of infection01/15/20231817 by Vero Crews RNOutcome: Adequate for discharge01/15/20231817 by Vero Crews RNOutcome: Adequate for discharge01/15/2023 131 by Vero rCews RNOutcome: Progressing as expected Problem: PainGoal: Control [...] Crews RNOutcome: Adequate for discharge01/15/20231817 by Vero Crwes RNOutcome: Adequate for discharge01/15/2023 131 by Vero Crews RNOutcome: Progressing as expectedGoal: Effective communication01/15/2023 1818 by Vero Crews RNOutcome: Adequate for discharge01/15/2023 1818 by Vero Crews RNOutcome: Adequate for discharge01/15/2023 1310 by Vero Crews RNOutcome: Progressing as expected 02174-3Vcck of care owbbYY7316-67-35O19:18:58Plan of care noteTXT1.2.840.113756.1.13.104.2. 7.2.230547|2601142678NYJjynncgaf for patient zctu16651-0WxypJJUHOHYOYV[address]TXTX[address] 794UWYKKXBLESHDAIONKBXKNG1451-86- 05T18:18:581.2.840.510712.1.72.3. 15|1.2.840.107850.1.13.104.2.7.2. 727879_[id number] [facility] 2023-01-15 15:08:00 0890-57-41E04:08:00F ormatting of this note might be different from the original.Called outpatient pharmacy and spoke to Maggi. [facility] pharmacy will bring patient's medications to her room within 45min to an hour. 36322-8Jjinx NayzJY5991-53-90I58:49:16Nurse NoteTXT1.2.840.868639.1.13.104.2. 7.2.080004|[id number] for patient nuuw61999-7Olgmz AumoYX587216723Zhfaiaf R Hanegan [address]TXTX[address] 441IARNXOWUKZQITOLEPEQWCT5979-54- 05T15:49:161.2.840.221998.1.72.3. 15|1.2.840.523865.1.13.104.2.7.2. 727879_[id number] Vero Crews RN [facility] 2023-01-15 13:11:00 2717-17-42L50:11:00F ormatting of this note might be different from the original.Problem: Infection RiskGoal: Absence of infectionOutcome: Progressing as expected Problem: PainGoal: Control of pain at or below patient's documented comfort goalOutcome: Progressing as expectedGoal: Reduction in pain sensationOutcome: Progressing as expected Problem: Discharge PlanningGoal: Adequate for dischargeOutcome: Progressing as expectedGoal: Effective communicationOutcome: Progressing as expected 47236-4Nsoz of care vkdoME9369-33-07A49:11:04Plan of care noteTXT1.2.840.085318.1.13.104.2. 7.2.727370|0982793953UINdwtyyacr for patient wdaa80227-2NhuhEYSQVJQMGZ[id number] 556TMORTFSZRJTQFDAEWREYBN0805-12- 05T13:11:041.2.840.768219.1.72.3. 15|1.2.840.699982.1.13.104.2.7.2. [id number] [facility] 2023-01-15 06:25:22 0249-57-42H65:25:22F ormatting of this note might be different from the original.Problem: Infection RiskGoal: Absence of infectionOutcome: Progressing as expected Problem: PainGoal: Control of pain at or below patient's documented comfort goalOutcome: Progressing as expectedGoal: Reduction in pain sensationOutcome: Progressing as expected Problem: Discharge PlanningGoal: Adequate for dischargeOutcome: Progressing as expectedGoal: Effective communicationOutcome: Progressing as expected 96248-4Kqon of care njqpID7816-90-06D66:25:24Plan of care noteTXT1.2.840.445519.1.13.104.2. 7.2.900297|[id number] for patient [id number] M Miguelangel RN[id number] 249WJSBGQJMWCBBZZYEFHIVUR9939-87- 05T06:25:241.2.840.036056.1.72.3. 15|1.2.840.501565.1.13.104.2.7.2. [id number] Katy Amaral Miguelangel [facility] 2023-01-14 09:27:52 8682-96-32K02:27:52F ormatting of this note might be different from the original.Problem: Infection RiskGoal: Absence of infectionOutcome: Progressing as expected Problem: PainGoal: Control of pain at or below patient's documented comfort goalOutcome: Progressing as expectedGoal: Reduction in pain sensationOutcome: Progressing as expected Problem: Discharge PlanningGoal: Adequate for dischargeOutcome: Progressing as expectedGoal: Effective communicationOutcome: Progressing as expected 21786-2Gkvy of care krbsND2521-26-06N94:27:55Plan of care noteTXT1.2.840.616385.1.13.104.2. 7.2.844473|[id number] for patient [id number] W Martinez RNUT45 [address] StreetTXTX[address] 209KHTMYIRNICMYRVYRPYDQBA4910-16- 04T09:27:551.2.840.991381.1.72.3. 15|1.2.840.729538.1.13.104.2.7.2. [id number] Charles Win RN [facility] 2023-01-13 22:20:47 5522-82-84Z87:20:47F ormatting of this note might be different from the original.Notified MD by page due to double dose of Tylenol being given. Per MD Brito no more Tylenol to be given for tonight. 02013-9Ujeeb EzptRY4290-86-66Q90:25:15Nurse NoteTXT1.2.840.725756.1.13.104.2. 7.2.161170|[id number] for patient axri50808-9OuzsQDEWPHKVNF[address] [place], [place] [address] 508OQTQNYUTGIPWUJLRVMQMQZ6622-22- 03T22:25:151.2.840.268426.1.72.3. 15|1.2.840.065743.1.13.104.2.7.2. [id number] [facility] 2023-01-13 21:55:20 4097-13-29O16:55:20F ormatting of this note might be different from the original.Problem: Infection RiskGoal: Absence of infectionOutcome: Progressing as expected Problem: PainGoal: Control of pain at or below patient's documented comfort goalOutcome: Progressing as expectedGoal: Reduction in pain sensationOutcome: Progressing as expected Problem: Discharge PlanningGoal: Adequate for dischargeOutcome: Progressing as expectedGoal: Effective communicationOutcome: Progressing as expected 42737-0Ktul of care ywlkQP5960-22-07D21:55:38Plan of care noteTXT1.2.840.699540.1.13.104.2. 7.2.920896|[id number] for patient gguw90176-6HepnGZYCCRYDGJ[address] [place], [place] [address] 083LKZFOVEWZTAKZQCFUNQLZM1247-54- 03T21:55:381.2.840.485566.1.72.3. 15|1.2.840.591679.1.13.104.2.7.2. [id number] [facility] 2023-01-13 08:20:43 1687-93-55G35:20:43F ormatting of this note might be different from the original.Problem: Infection RiskGoal: Absence of infectionOutcome: Progressing as expected Problem: PainGoal: Control of pain at or below patient's documented comfort goalOutcome: Progressing as expectedGoal: Reduction in pain sensationOutcome: Progressing as expected Problem: Discharge PlanningGoal: Adequate for dischargeOutcome: Progressing as expectedGoal: Effective communicationOutcome: Progressing as expected 93245-4Ndyx of care twhyEK9825-43-47E05:20:46Plan of care noteTXT1.2.840.399204.1.13.104.2. 7.2.500316|[id number] for patient rszl67828-8YawzFFDWEELJXD[address] HtqlQorteyfjwEderdyybgSJDU3623689 899LDZAEUJIIUUWNLVRNPAJRB3199-58- 03T08:20:461.2.840.569410.1.72.3. 15|1.2.840.771115.1.13.104.2.7.2. [id number] [facility] 2023-01-12 20:10:08 4776-21-05U59:10:08F ormatting of this note might be different from the original.Problem: Infection RiskGoal: Absence of infectionOutcome: Progressing as expected Problem: PainGoal: Control of pain at or below patient's documented comfort goalOutcome: Progressing as expectedGoal: Reduction in pain sensationOutcome: Progressing as expected Problem: Discharge PlanningGoal: Adequate for dischargeOutcome: Progressing as expectedGoal: Effective communicationOutcome: Progressing as expected 10169-8Ylfv of care aqtxQW4254-95-03Y07:10:14Plan of care noteTXT1.2.840.603852.1.13.104.2. 7.2.605501|[id number] for patient fymh75323-5AlrhHFBRMVGJQV98 [address]TXTX[address] 109NZPWQYHPUOSCYYPJEPJOQZ4926-76- 02T20:10:141.2.840.369297.1.72.3. 15|1.2.840.522985.1.13.104.2.7.2. [id number] [facility] 2023-01-12 09:28:38 5601-45-68R63:28:38F ormatting of this note might be different from the original.Problem: Infection RiskGoal: Absence of infectionOutcome: Progressing as expected Problem: PainGoal: Control of pain at or below patient's documented comfort goalOutcome: Progressing as expectedGoal: Reduction in pain sensationOutcome: Progressing as expected Problem: Discharge PlanningGoal: Adequate for dischargeOutcome: Progressing as expectedGoal: Effective communicationOutcome: Progressing as expected 94788-6Umoo of care mvcmLQ5953-70-69F65:28:40Plan of care noteTXT1.2.840.133695.1.13.104.2. 7.2.114487|[id number] for patient krtq77372-0RsnsXTLJNNRAOV98 [address] StreetTXTX[address] 358FQFERATCWHFSNSTRXWLCEE4857-80- 02T09:28:401.2.840.347809.1.72.3. 15|1.2.840.543504.1.13.104.2.7.2. 727879_[id number] [facility] 2023-01-12 05:17:00 0551-68-70F70:17:00F ormatting of this note might be different from the original.Problem: Infection RiskGoal: Absence of infectionOutcome: Progressing as expected Problem: PainGoal: Control of pain at or below patient's documented comfort goalOutcome: Progressing as expectedGoal: Reduction in pain sensationOutcome: Progressing as expected Problem: Discharge PlanningGoal: Adequate for dischargeOutcome: Progressing as expectedGoal: Effective communicationOutcome: Progressing as expected 75298-0Wjym of care lhjrVU1454-77-19Y02:17:08Plan of care noteTXT1.2.840.625708.1.13.104.2. 7.2.533263|[id number] for patient oahg73360-5UodoXGDVQBVJGS[address]TXTX[address] 681GRTWJWKHYZPMQVOAHGWNSI0455-76- 02T05:17:081.2.840.627288.1.72.3. 15|1.2.840.305625.1.13.104.2.7.2. 727879_[id number] [facility] 2023-01-12 01:43:06 0251-61-45N27:43:06F ormatting of this note might be different from the original.Report to lisy CURRIE on 9C. Pt awaiting transport 66894-0Ugvsqtode department HlsmML2066-66-23Q77:43:18[facility] NoteTXT1.2.840.929867.1.13.104.2. 7.2.586823|[id number] for patient oqgt24885-7JjxdVZ770730748Vyvlc McDougle RN[address]TXTX[address] 496ZGTJQSVXEPVTUXRUCWAEQC2657-54- 02T01:43:181.2.840.864740.1.72.3. 15|1.2.840.451823.1.13.104.2.7.2. [id number] Melvin Villegas RN [facility] 2023-01-12 01:10:30 8082-03-90K73:10:30F ormatting of this note might be different from the original.Attempted report, nurse unavailable, left callback number 50649-8Cwdydliik department EjitWE9645-02-79U94:10:42[facility] NoteTXT1.2.840.999575.1.13.104.2. 7.2.442702|[id number] for patient vbgc79431-4YlzzIOBSAPLPHO[address] QkrsIqzfmsyjwYmpcjobrvPIZW1416746 071KBDYVPBYAVGNFFFHNYGIQD0299-52- 02T01:10:421.2.840.215479.1.72.3. 15|1.2.840.089749.1.13.104.2.7.2. 727879_[id number] [facility] 2023-01-12 00:24:49 7034-01-34H05:24:49F ormatting of this note might be different from the original.Surgery at bedside 98119-2Kskmxwtqa department YeyqVX4383-39-47C00:24:56[facility] NoteTXT1.2.840.654786.1.13.104.2. 7.2.367869|[id number] for patient sozn12381-0CznaNQJXVXVLEQ42 [address]GalvestonGalvestonTXTX[address] 294OTKDFCNMZYSNJKCWQERPDT5032-95- 02T00:24:561.2.840.448537.1.72.3. 15|1.2.840.840943.1.13.104.2.7.2. 727879_[id number] [facility] 2023-01-11 23:08:11 6502-68-72Y95:08:11F ormatting of this note might be different from the original. made aware of pt increased pain and nausea 57962-0Raecwnskn department EkxcAI8872-32-58F17:08:21[facility] NoteTXT1.2.840.104394.1.13.104.2. 7.2.106279|[id number] for patient tlvq61121-4AfasNYBVPVGNHE[address]TXTX[address] 386TSJUFXXEWUPKBKSUYOHAUG8057-09- 01T23:08:211.2.840.025788.1.72.3. 15|1.2.840.028306.1.13.104.2.7.2. 727879_[id number] [facility] 2023-01-11 22:34:38 1222-40-67C46:34:38F ormatting of this note might be different from the original.Pt return from CT, warm blanket given 11564-5Poxmkilll department LyikBR3029-63-56C75:34:49[facility] NoteTXT1.2.840.188884.1.13.104.2. 7.2.432513|[id number] for patient mlws66009-3BjkzIYZZCFKFKX98 [address]TXTX[address] 761PCVPVZZAMLSLJSEAAGMYFI3013-25- 01T22:34:491.2.840.865883.1.72.3. 15|1.2.840.757428.1.13.104.2.7.2. 727879_[id number] [facility] 2023-01-11 22:18:01 6950-64-96J69:18:01F ormatting of this note might be different from the original.Pt to CT scan 91708-8Bolbbsgzz department LzkdWJ4467-98-34U92:18:08[facility] NoteTXT1.2.840.393993.1.13.104.2. 7.2.453517|[id number] for patient gayn45014-6ScfuVTQQFWCHRH46 [address]TXTX[address] 567PMKIAQODECMYKSAJXKJDSC2650-01- 01T22:18:081.2.840.796341.1.72.3. 15|1.2.840.163766.1.13.104.2.7.2. 727879_[id number] [facility] 2023-01-11 21:30:08 4578-85-21L68:30:08F ormatting of this note might be different [...] liver. Denies vomiting, denies blood in stool. 12432-6Jmurcustq department KahkAI9948-34-47E13:32:39[facility] NoteTXT1.2.840.718340.1.13.104.2. 7.2.796678|[id number] for patient jvfu71637-9JfppGODGGBSQKR46 [address]TXTX[address] 509SOQUXSVYSMGXRWWTETPANN4361-24- 01T21:32:391.2.840.817990.1.72.3. 15|1.2.840.613658.1.13.104.2.7.2. 727879_[id number] [facility] 2023-01-11 21:03:38 3271-15-41R37:03:38F ormatting of this note might be different from the original.Nikko Dyson is a 27 year old female here today c/o abdominal pain x 2 days. Pt denies N/V but reports diarrhea. Pt reports "9/10" pain at this time. Pt reports pain travels down right side abdomen. Pt is A&Ox4, NAD Noted. RR even/unlabored. 86785-1Ufxdjpelu department Triage zqndWL5268-90-28E79:05:23Emergen y department Triage noteTXT1.2.840.673223.1.13.104.2. 7.2.095226|[id number] for patient uuvx77228-9Yjkhwikik department [address]TX[address] 892TKFBKVBUCGZXEJTMPFHMSS1239-16- 01T21:05:231.2.840.486427.1.72.3. 15|1.2.840.237394.1.13.104.2.7.2. [id number] [facility] 2023-01-11 20:44:00 5133-23-27T83:44:00F ormatting of this note is different from the original.[facility] Emergency Department NotePatient Name: Nikko DysonDate of : 1995 27 year old femaleTreatment Room: [address]cal Record Number: [id number] Care Physician: Luke BakerPatient Escorted by: Family [5]Mode of Arrival: Personal means [1]EMS Treatment Prior to ED Arrival:TOW BOAT CAPTAIN treatment: None Travel and Exposure Screening:SymptomsDoes patient [...] 1 month ago that was done at [place]. Due to the worsening discomfort patient has, for further evaluation at [facility]. Patient states that during her cholecystectomy [...] when she sits up. Patient has discontinued Bosque and anxiety medication due to concern for her liver. She is only used a heating pad for her symptoms with minimal improvement.History provided by: PatientLanguage ground wirer used: No Past Medical History/Immunizations:Past Medical History: [...] N/A 07/21/2019 Surgeon: Prasanna Vargas MD; Location: [facility] Delivery OR Location TUBAL LIGATION N/A 07/21/2019 Surgeon: Prasanna Vargas MD; Location: [facility] OR Location [...] 0 - 220 U/L COMP. METABOLIC PANEL (57400) TOTAL BETA HCG ASSAY EXTRA TUBE ORANGE EXTRA TUBE LAV EKG:If EKG completed, see Procedure Note. Orders and Treatments:Orders Placed This Encounter Procedures CT ABDOMEN PELVIS W CONTRAST POCT TEST URINALYSIS LIPASE COMP. METABOLIC PANEL (49389) TOTAL BHCG (QUANTITATIVE) Orders Placed This Encounter [...] mouth every 6 (six) hours as needed. XPKMNJNIPS-TSUOACBWBARYP-WGGO (FIORICET) 50-300-40 MG PER CAPSULE Take 1 [...] in the Gallbladder fossa, post-recent cholecystectomy in [place].General surgery was consulted and admitted the patient for further workup and management. 54291-5Clrpkeexv Emergency department ScddJQ5533493Oylujq, Jeremy1.2.840.397251.1.13.104.2.7 .2.172563GilyvpRbmyvjAH6152-33-18 T07:17:19Physician Emergency department NoteTXT1.2.840.132025.1.13.104.2. 7.2.573033|[id number] for patient kyuk79100-9Bfjcikasf department NoteLN[address]TXTX[address] 579DFDZVKQPDUZMYBLADYQVIZ0076-72- 02T07:17:191.2.840.828218.1.72.3. 15|1.2.840.860994.1.13.104.2.7.2. [id number] [facility] 2022-12-03 08:57:03 1034-01-36Z99:57:03F ormatting of this note might be different from the original.Patient has an appointment 12/12/22.Blayne Silva RN 12/03/2022 8:57 AM 30538-7Cmtcasglh encounter ExpwPO9898-93-22N63:57:18Telephon e encounter NoteTXT1.2.840.411943.1.13.104.2. 7.2.744887|[id number] for patient rdrq016535025Vbudqfr Collins RNUT[address]TXTX[address] 888KARSNHXAGKHUTREVAGXRCE7336-70- 24T08:57:181.2.840.273644.1.72.3. 15|1.2.840.879979.1.13.104.2.7.2. [id number] Blayne Silva RN [facility]
[2023-11-12 08:47] LABS: Absolute Eosinophils 0.4 K/uL (0-0.5); Absolute Lymphocytes (CBC) 1.6 K/uL (0.7-4.9); Absolute Monocytes 0.3 K/uL (0.1-1.3); Absolute Neutrophil 4.4 K/uL (1.8-8.0); Basophils % 0.6 % (0-1.3); Eosinophils % 6.3 % (0-4.4); Hematocrit 44.1 % (36.0-45.0); Hemoglobin 14.7 g/dL (12.0-15.0); Lymphocytes % 23.4 % (15.3-44.8); MCH 29.3 pg (27.0-35.0); MCHC 33.5 g/dL (32.0-36.0); MCV 87.5 fL (80-100); MPV 7.9 fL (7.6-11.3); Monocytes % 4.5 % (3.3-12.3); Neutrophils % 65.2 % (41.7-73.7); Nucleated Red Blood Cells % 0.1 % (0-0); Platelets 351 thou/uL (152-406); RBC Red Blood Cell Count 5.04 M/uL (3.86-4.86); Red Cell Distribution Width 13.8 % (12.1-15.2)
--- NOTE | 2023-11-12 08:51 | RAD REPORT ---
EXAM DESCRIPTION: CTAbdomen Pelvis W Contrast - 11/12/2023 8:35 am CLINICAL HISTORY: ABD PAIN COMPARISON: Abdomen Pelvis W Contrast dated 06/19/2023; Abdomen Pelvis W Contrast dated 05/27/2023; Abdomen Pelvis W Contrast dated 04/08/2023; Abdomen Pelvis W Contrast dated 03/27/2023; Abdomen Pelvis W Contrast dated 03/27/2021 TECHNIQUE: CT of the abdomen and pelvis was performed with IV contrast. All CT scans are performed using dose optimization technique as appropriate and may include automated exposure control or mA/KV adjustment according to patient size. FINDINGS: Lower chest: No acute abnormality. Circumferential thickened distal esophagus . Liver: No acute abnormality or suspicious lesions. Biliary: Cholecystectomy. Stomach: No significant focal abnormality. Duodenum: No significant focal abnormality. Pancreas: No significant abnormality. Spleen: 5 mm low-density lesion in the spleen . Adrenal: No suspicious lesions. Kidney/ureter: No hydronephrosis. 3 mm stone in the right kidney Retroperitoneum: No retroperitoneal adenopathy. Vascular: No aneurysm. Bowel: Normal appendix. Small fat containing umbilical hernia.. Peritoneum: No ascites or free air. Bladder: Grossly unremarkable. Reproductive: Surgical changes from likely recent . Bones: No acute fracture. Other: n/a IMPRESSION: No acute intra-abdominal or pelvic finding. Nonobstructive right nephrolithiasis. Normal appendix.
[2023-11-12] MEDS ORDERED: Ringers Lactate 1,000 ML IV ONE (08:56)
[2023-11-12 09:10] LABS: Albumin 4.5 g/dL (3.4-5.0); Albumin/Globulin Ratio 1.2 (1.1-1.8); Anion Gap 8.6 mEq/L (5.0-15.0); Bilirubin Total 0.9 mg/dL (0.2-1.0); Globulin 3.9 g/dL (2.3-3.5); Potassium 3.6 mEq/L (3.5-5.1); Protein, Total 8.4 g/dL (6.4-8.2)
[2023-11-12 09:18] LABS: Specific Gravity 1.029 (1.005-1.030)
[2023-11-12 09:21] LABS: Specific Gravity 1.029 (1.005-1.030); Urine Bacteria None Seen /HPF (<20); Urine Bilirubin NEGATIVE (Negative); Urine Blood Negative (Negative); Urine Clarity Clear (Clear); Urine Color Colorless (Yellow); Urine Culture Reflex Order NOT NEEDED; Urine Glucose NEGATIVE (Negative); Urine Ketones NEGATIVE (Negative); Urine Microscopic Reflex YN ORDER UMIC; Urine Mucus Slight /HPF (None Seen); Urine Nitrite NEGATIVE (Negative); Urine Protein NEGATIVE (Negative); Urine RBC <5 /HPF (None Seen); Urine Urobilinogen Normal (Normal); Urine WBC <5 /HPF (<5)
--- NOTE | 2023-11-12 09:26 | ER ---
Nurse's Notes [facility] Name: Natanael Dyson Age: 28 yrs Sex: Female : 1995 Arrival Date: 11/12/2023 Time: 08:01 Bed 5 Private MD: Diagnosis: Abdominal pain, unspecified;Dehydration Presentation: 11/11 07:53 Chief complaint: EMS states: RLQ PAIN STARTED YESTERDAY. COMPLAINS OF DIZZINESS, NAUSEA db SINCE YESTERDAY. TUBES TIED, NO APPETITE TODAY. Coronavirus screen: Client denies travel out of the [place] in the last 14 days. At this time, the client does not indicate any symptoms associated with coronavirus-19. Ebola Screen: Patient negative for fever greater than or equal to 101.5 degrees Fahrenheit, and additional compatible Ebola Virus Disease symptoms Patient denies exposure to infectious person. Patient denies travel to an Ebola-affected area in the 21 days before illness onset. No symptoms or risks identified at this time. Initial Sepsis Screen: Does the patient meet any 2 criteria? No. Patient's initial sepsis screen is negative. Does the patient have a suspected source of infection? No. Patient's initial sepsis screen is negative. Risk Assessment: Do you want to hurt yourself or someone else? Patient reports no desire to harm self or others. Onset of symptoms was November 12, 2023. 07:53 Method Of Arrival: EMS: [facility] db 07:53 Acuity: THIERNO 3 db Triage Assessment: 07:53 General: Appears in no apparent distress. comfortable, Behavior is calm, cooperative. db Pain: Complains of pain in abdomen. Neuro: Level of Consciousness is awake, alert, obeys commands, Oriented to person, place, time, situation. Respiratory: Airway is patent Respiratory effort is even, unlabored, Respiratory pattern is regular, symmetrical. GI: Abdomen is flat, non-distended, Abdomen is tender to palpation in right lower quadrant Reports lower abdominal pain, nausea. Historical: - Allergies: 08:05 Compazine; db 08:05 NSAIDS NON STEROIDAL ANTI INFLAMMATORY DRUG; db 08:05 Haldol; db 08:05 Reglan; db 08:05 Toradol; db - PMHx: 08:05 Anxiety; breast cancer; depressive disorder; Kidney stone; nephritis; db - PSHx: 08:05 Cholecystectomy; Ligation of fallopian tube; db - Immunization history:: Adult Immunizations unknown. - Infectious Disease History:: Denies. - Social history:: Smoking status: Patient denies any tobacco usage or history of. Screenin:03 [facility] ED Fall Risk Assessment (Adult) History of falling in the last 3 months, db including since admission No falls in past 3 months (0 pts) Confusion or Disorientation No (0 pts) Intoxicated or Sedated No (0 pts) Impaired Gait No (0 pts) Mobility Assist Device Used No (0 pt) Altered Elimination No (0 pt) Score/Fall Risk Level 0 - 2 = Low Risk Oriented to surroundings, Maintained a safe environment. Abuse screen: Denies threats or abuse. Denies injuries from another. Nutritional screening: No deficits noted. Tuberculosis screening: No symptoms or risk factors identified. Assessment: 08:09 Reassessment: SEE TRIAGE FOR INITIAL ASSESSMENT. db 10:02 Reassessment: Patient appears in no apparent distress at this time. Patient and/or db family updated on plan of care and expected duration. Pain level reassessed. Patient is alert, oriented x 3, equal unlabored respirations, skin warm/dry/pink. PT DC PENDING FLUIDS FINISH. FLUIDS PLACED ON PRESSURE BAG. General: Appears in no apparent distress. comfortable, Behavior is calm, cooperative. Neuro: Level of Consciousness is awake, alert, obeys commands, Oriented to person, place, time, situation. Respiratory: Airway is patent Respiratory effort is even, unlabored, Respiratory pattern is regular, symmetrical. Vital Signs: 07:53 BP 156 / 92; Pulse 114; Resp 18; Temp 98.5(O); Pulse Ox 100% on R/A; Weight 56.7 kg; db Height 5 ft. 1 in. ; Pain 10/10; 08:52 BP 138 / 90; Pulse 105; Resp 18; Pulse Ox 99% on R/A; iw 07:53 Body Mass Index 23.62 (56.70 kg, 154.94 cm) db 07:53 Pain Scale: Adult db ED Course: 07:53 Arm band placed on Patient placed in an exam room. db 08:02 Patient arrived in ED. db 08:02 Paula Mark MD is Attending Physician. sp3 08:05 Triage completed. db 08:09 Mercedes Aaron RN is Primary Nurse. db 08:18 Missed attempt(s): 22 gauge in right antecubital area. Bleeding controlled, band aid db applied, catheter tip intact. 08:20 Inserted saline lock: 22 gauge in left antecubital area, using aseptic technique. Blood db collected. 08:37 CT Abd/Pelvis - IV Contrast Only In Process Unspecified. EDMS 10:03 Patient has correct armband on for positive identification. Bed in low position. Call db light in reach. Side rails up X 1. Client placed on continuous cardiac and pulse oximetry monitoring. NIBP monitoring applied. ekg monitor tech on. Pulse ox on. NIBP on. Warm blanket given. Administered Medications: 08:25 Drug: NS 0.9% IV 1000 ml IV at 1 bolus Per protocol; 1000 mL bolus Route: IV; Rate: 1 db bolus; Site: left antecubital; 08:25 Drug: HYDROmorphone IVP 1 mg IVP once Route: IVP; Site: left antecubital; db 08:26 Drug: Ondansetron IVP 4 mg IVP once; over 2 minutes Route: IVP; Site: left antecubital; db 08:59 Drug: Lactated Ringers Solution IV 1000 ml IV at 1000 bolus continuous Route: IV; Rate: db 1000 bolus; Site: left antecubital; 09:34 Drug: Dicyclomine PO 10 mg PO once Route: PO; iw Outcome: 09:26 Discharge ordered by . jaspal 10:39 Patient left the ED. iw Signatures: Dispatcher [employer] EDMS Vania Loo RN RN iw Paula Mark MD MD sp3 Mercedes Aaron RN RN db Corrections: (The following items were deleted from the chart) 08:52 08:52 BP 138 / 90; Pulse 99bpm; Resp 18bpm; Pulse Ox 99% RA; iw iw
--- NOTE | 2023-11-12 09:26 | EDPHYS ---
Physician Documentation [facility] Name: Natanael Dyson Age: 28 yrs Sex: Female : 1995 Arrival Date: 11/12/2023 Time: 08:01 Bed 5 Private MD: ED Physician Paula Mark HPI: 11/11 08:06 This 28 yrs old Female presents to ER via EMS with complaints of Abdominal Pain. sp3 08:06 20-year-old female with history of breast cancer, kidney stones, nephritis well-known sp3 to the ED with multiple visits in the past now presents with right lower quadrant abdominal pain and tachycardia. 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 She is due for her menses now. She is status post BTL and cholecystectomy. She denies any fever, trauma, dysuria, urinary frequency, travel history, potential bad food, or any other signs or symptoms on ROS at this time.. Historical: - Allergies: 08:05 Compazine; db 08:05 NSAIDS NON STEROIDAL ANTI INFLAMMATORY DRUG; db 08:05 Haldol; db 08:05 Reglan; db 08:05 Toradol; db - PMHx: 08:05 Anxiety; breast cancer; depressive disorder; Kidney stone; nephritis; db - PSHx: 08:05 Cholecystectomy; Ligation of fallopian tube; db - Immunization history:: Adult Immunizations unknown. - Infectious Disease History:: Denies. - Social history:: Smoking status: Patient denies any tobacco usage or history of. ROS: 08:08 Constitutional: Negative for fever, chills, and weight loss, Eyes: Negative for injury, sp3 pain, redness, and discharge, Neck: Negative for injury, pain, and swelling, Cardiovascular: Negative for chest pain, palpitations, and edema, Respiratory: Negative for shortness of breath, cough, wheezing, and pleuritic chest pain, Back: Negative for injury and pain, MS/Extremity: Negative for injury and deformity, Skin: Negative for injury, rash, and discoloration, Neuro: Negative for headache, weakness, numbness, tingling, and seizure, Psych: Negative for depression, anxiety, suicide ideation, homicidal ideation, and hallucinations, Allergy/Immunology: Negative for hives, rash, and allergies, Endocrine: Negative for neck swelling, polydipsia, polyuria, polyphagia, and marked weight changes, Hematologic/Lymphatic: Negative for swollen nodes, abnormal bleeding, and unusual bruising, 08:08 All other systems are negative, Exam: 08:08 Constitutional: This is a well developed, well nourished patient who is awake, alert, sp3 and in no acute distress. Head/Face: Normocephalic, atraumatic. Eyes: Pupils equal round and reactive to light, extra-ocular motions intact. Lids and lashes normal. Conjunctiva and sclera are non-icteric and not injected. Cornea within normal limits. Periorbital areas with no swelling, redness, or edema. Neck: Trachea midline, no thyromegaly or masses palpated, and no cervical lymphadenopathy. Supple, full range of motion without nuchal rigidity, or vertebral point tenderness. No Meningismus. Chest/axilla: Normal chest wall appearance and motion. Nontender with no deformity. No lesions are appreciated. Respiratory: Lungs have equal breath sounds bilaterally, clear to auscultation and percussion. No rales, rhonchi or wheezes noted. No increased work of breathing, no retractions or nasal flaring. Back: No spinal tenderness. No costovertebral tenderness. Full range of motion. Skin: Warm, dry with normal turgor. Normal color with no rashes, no lesions, and no evidence of cellulitis. MS/ Extremity: Pulses equal, no cyanosis. Neurovascular intact. Full, normal range of motion. Neuro: Awake and alert, GCS 15, oriented to person, place, time, and situation. Cranial nerves II-XII grossly intact. Motor strength 5/5 in all extremities. Sensory grossly intact. Cerebellar exam normal. Normal gait. Psych: Awake, alert, with orientation to person, place and time. Behavior, mood, and affect are within normal limits. 08:08 Cardiovascular: Rate: tachycardic, 08:08 Abdomen/GI: Patient with right lower quadrant abdominal pain without peritoneal signs. Patient is tachycardic., Vital Signs: 07:53 BP 156 / 92; Pulse 114; Resp 18; Temp 98.5(O); Pulse Ox 100% on R/A; Weight 56.7 kg; db Height 5 ft. 1 in. ; Pain 10/10; 08:52 BP 138 / 90; Pulse 105; Resp 18; Pulse Ox 99% on R/A; iw 07:53 Body Mass Index 23.62 (56.70 kg, 154.94 cm) db 07:53 Pain Scale: Adult db MDM: 08:02 Patient medically screened. sp3 08:09 Data reviewed: vital signs, nurses notes, old medical records, lab test result(s), sp3 radiologic studies. ED course: 28-year-old female with significant right lower quadrant pain and tachycardia. Given her history, large differential diagnosis exists including UTI/pyelonephritis spectrum, kidney stone, appendicitis, colitis, among others. I am not highly suspicious for tubal as her LMP is less than 4 weeks ago and she is due for 1 now. Patient is at risk for narcotic dependence however given the level of pain and tachycardia we will give Dilaudid 1 mg IV until remainder of workup is ascertained. Disposition pending workup and patient course.. 09:22 ED course: CT scan and labs within normal limits except for lactate of 2.2. Patient has sp3 received 1 L normal saline and 1 L lactated Ringer's we will safely discharge patient home at this time. Her heart rate is now in the 90s.. 11/11 08:03 Order name: CBC with Diff; Complete Time: 09:20 sp3 11/11 08:03 Order name: CMP; Complete Time: 09:20 sp3 11/11 08:03 Order name: Lipase; Complete Time: 09:20 sp3 11/11 08:03 Order name: Test, Urine; Complete Time: 09:20 sp3 11/11 08:03 Order name: Urinalysis w/ reflexes; Complete Time: 09:22 sp3 11/11 08:03 Order name: Lactate w/ 2H reflex if indic.; Complete Time: 08:52 sp3 11/11 08:03 Order name: CT Abd/Pelvis - IV Contrast Only; Complete Time: 08:52 sp3 11/11 08:03 Order name: IV Saline Lock; Complete Time: 08:26 sp3 11/11 08:03 Order name: Labs collected and sent; Complete Time: 08:26 sp3 11/11 08:03 Order name: Monitor; Complete Time: 08:55 sp3 Administered Medications: 08:25 Drug: NS 0.9% IV 1000 ml IV at 1 bolus Per protocol; 1000 mL bolus Route: IV; Rate: 1 db bolus; Site: left antecubital; 08:25 Drug: HYDROmorphone IVP 1 mg IVP once Route: IVP; Site: left antecubital; db 08:26 Drug: Ondansetron IVP 4 mg IVP once; over 2 minutes Route: IVP; Site: left antecubital; db 08:59 Drug: Lactated Ringers Solution IV 1000 ml IV at 1000 bolus continuous Route: IV; Rate: db 1000 bolus; Site: left antecubital; 09:34 Drug: Dicyclomine PO 10 mg PO once Route: PO; iw Disposition Summary: 11/12/23 09:26 Discharge Ordered Notes: Location: Home sp3 Condition: Stable sp3 Diagnosis - Abdominal pain, unspecified sp3 - Dehydration sp3 Followup: sp3 - With: Private Physician - When: Upon discharge from the Emergency Department - Reason: Continuance of care Discharge Instructions: - Discharge Summary Sheet sp3 - Dehydration, Adult sp3 Forms: - Medication Reconciliation Form sp3 - Antibiotic Education sp3 - Prescription Opioid Use sp3 - Patient Portal Instructions sp3 - Leadership Thank You Letter sp3 Signatures: Dispatcher [employer] Vania Parekh, RN RN iw Paula Mark MD MD sp3 Mercedes Aaron RN RN db Corrections: (The following items were deleted from the chart) 08:03 08:03 CBC+H.LAB.BRZ ordered. EDMS EDMS 08:03 08:03 COMPREHENSIVE METABOLIC PANEL+C.LAB.BRZ ordered. EDMS EDMS 08:03 08:03 LIPASE+C.LAB.BRZ ordered. EDMS EDMS 08:03 08:03 Test, Urine+UC.LAB.BRZ ordered. EDMS EDMS 08:03 08:03 Urinalysis+U.LAB.BRZ ordered. EDMS EDMS 08:03 08:03 LACTATE+C.LAB.BRZ ordered. EDMS EDMS 08:03 08:03 Abdomen Pelvis W Con+CT.RAD.BRZ ordered. EDMS EDMS
[2023-11-12] MEDS ORDERED: DICYCLOMINE HCL 10 MG CAP ONE (09:30)
[2023-11-12 10:45] VITALS: BP 138/90; O2SAT 99
== END 2023-11-12 10:39 | disposition home or self-care (01) ==
LOC: ER 08:01
DX: R10.31 Right lower quadrant pain (principal); E86.0 Dehydration; Z90.49 Acquired absence of other specified parts of digestive tract; Z87.442 Personal history of urinary calculi
CPT/HCPCS: 85025; 81001; 36415; 81025; 83605; 83690; 80053; 74177; Q9967; J1170; J2405; J7120; J7030

== ENCOUNTER 2023-12-17 18:38 | Emergency (ER) | payer OTHER ==
--- OUTSIDE RECORDS SUMMARY | 2023-12-17 18:48 | XMS REPORT | Continuity of Care Document ---
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 00 09-05 17:12 :00 No 1000mL at 999 mL/hr, 1,000 mL, IV Infusion, ONCE, 1 dose, On Sat09/05/22 at 1000, STAT [facility] methylpredn isolone sod succ (SOLU-MEDRO L) injection 125 mg 09-05 14:45: 00 09-05 14:35 :00 No 125mg 125 mg, Intravenou s, ONCE, 1 dose, On Sat09/05/22 at 0945, 2 mL [facility] butalbital- acetaminoph en-caff (ESGIC) 50-325-40 mg tablet 1 tablet 09-05 14:00: 00 09-05 14:34 :00 No 1{tbl} 1 tablet, Oral, ONCE, 1 dose, On Sat09/05/22 at 0900, [place] [facility] diphenhydrA MINE (BENADRYL) injection 25 mg 09-05 14:00: 00 09-05 14:39 :00 No 25mg 25 mg, Slow IV Push, ONCE, 1 dose, On Sat09/05/22 at 0900, STAT [facility] proMETHazin e (PHENERGAN) 12.5 mg in NaCl 0.9% (NS) 50 mL IV piggyback 09-05 14:00: 00 09-05 14:40 :00 No 12.5mg 12.5 mg, IV Piggyback, ONCE, 1 dose, On Sat09/05/22 at 0900, [place] [facility] carvediloL 25 mg tablet 09-05 00:00: 00 Yes [id number] 25mg Take 1 tablet by mouth in the morning and 1 tablet in the evening. Take with meals. [facility] losartan 50 mg tablet 09-05 00:00: 00 Yes [id number] 50mg Take 1 tablet by mouth in the morning and 1 tablet in the evening. [facility] ibuprofen 800 mg tablet 08-05 00:00: 00 Yes 800mg Take 1 tablet by mouth 3 (three) times daily as needed. [facility] cyclobenzap rine 10 mg tablet 08-05 00:00: 00 Yes 10mg Take 1 tablet by mouth 3 (three) times daily as needed. [facility] maalox:diph enhydrAMINE :lidocaine 2 % viscous 1:1:1 ([facility]) oral suspension 15 mL 08-01 00:45: 00 08-01 00:44 :00 No 15mL 15 mL, Oral, ONCE, 1 dose, On Sat07/31/22 at 1945, [place] [facility] ketorolac (TORADOL) injection 15 mg 08-01 00:15: 00 08-01 00:44 :00 No 15mg 15 mg, Slow IV Push, ONCE, 1 dose, On Sat07/31/22 at 1914, Routine [facility] ondansetron (ZOFRAN (PF)) injection 4 mg 08-01 00:15: 00 08-01 00:46 :00 No 4mg 4 mg, Slow IV Push, ONCE, 1 dose, On Sat07/31/22 at 1914, [place] [facility] famotidine (PEPCID (PF)) injection 20 mg 08-01 00:15: 00 08-01 00:46 :00 No 20mg 20 mg, Slow IV Push, ONCE, 1 dose, On Sat07/31/22 at 1914, [place] [facility] ondansetron 4 mg disintegrat ing tablet 07-31 00:00: 00 05-19 00:00 :00 No [id number] 4mg Take 1 tablet by mouth every 8 (eight) hours as needed for Nausea and Vomiting (N/V). [facility] sucralfate 1 gram tablet 07-31 00:00: 00 05-19 00:00 :00 No [id number] 1g Take 1 tablet by mouth before meals and at bedtime. [facility] pantoprazol e 40 mg EC tablet 07-31 00:00: 00 08-15 04:59 :00 No [id number] 40mg Take 1 tablet by mouth in the morning for 14 days. [facility] tamsulosin 0.4 mg 24 hr capsule 07-25 00:00: 00 Yes .4mg Take 1 capsule by mouth in the morning. [facility] traMADoL 50 mg tablet 07-23 00:00: 00 Yes 50mg Take 1 tablet by mouth. [facility] ibuprofen 600 mg tablet 07-15 00:00: 00 07-31 00:00 :00 No [id number] 600mg Take 1 tablet by mouth every 6 (six) hours as needed for Pain (scale 4-6). [facility] citalopram 10 mg tablet 06-29 00:00: 00 Yes 10mg Take 1 tablet by mouth in the morning. [facility] QUEtiapine 400 mg tablet 06-29 00:00: 00 Yes [facility] gabapentin 600 mg tablet 06-29 00:00: 00 Yes [facility] methylPREDN ISolone (MEDROL, ANABELA,) 4 mg tablets 06-23 00:00: 00 Yes [id number] Take by mouth SEE-INSTRU CTIONS. follow package directions [facility] bromphenira mine-pseudo ephedrine-D M (BROMFED DM) 2-30-10 mg/5 mL syrup 06-23 00:00: 00 07-04 05:59 :00 No [id number] 5mL Take 5 mL by mouth 4 (four) times daily as needed for Cold symptoms for up to 10 days. [facility] methocarbam oL 750 mg tablet 06-23 00:00: 00 07-01 05:59 :00 No [id number] 750mg Take 1 tablet by mouth 4 (four) times daily for 7 days. [facility] magnesium sulfate in water 2 gram/50 mL (4 %) infusion 2 g 2021-05 21:00: 00 05-05 21:15 :00 No 2g 2 g, IV Piggyback, Administer over 15 Minutes, ONCE, 1 dose, On 05/05/22 at 1500, [place] [facility] butalbital- acetaminoph en-caff (ESGIC) 50-325-40 mg tablet 1 tablet 2021-05 20:15: 00 05-05 20:56 :00 No 1{tbl} 1 tablet, Oral, ONCE, 1 dose, On 05/05/22 at 1415, [place] [facility] dexamethaso ne sod phos PF injection 10 mg 2021-05 20:15: 00 05-05 21:00 :00 No 10mg 10 mg, Slow IV Push, ONCE, 1 dose, On 05/05/22 at 1415, 1 mL [facility] NaCl 0.9% (NS) bolus infusion 1,000 mL 2021-05 20:00: 00 05-05 21:45 :00 No 1000mL at 999 mL/hr, 1,000 mL, IV Infusion, ONCE, 1 dose, On 05/05/22 at 1400, [place] [facility] diphenhydrA MINE (BENADRYL) injection 25 mg 2021-05 19:15: 00 05-05 19:42 :00 No 25mg 25 mg, Slow IV Push, ONCE, 1 dose, On 05/05/22 at 1315, STAT [facility] ondansetron (ZOFRAN (PF)) injection 4 mg 2021-05 19:15: 00 05-05 19:45 :00 No 4mg 4 mg, Slow IV Push, ONCE, 1 dose, On 05/05/22 at 1315, [place] [facility] ketorolac (TORADOL) injection 30 mg 2021-05 19:15: 00 05-05 19:44 :00 No 30mg 30 mg, Slow IV Push, ONCE, 1 dose, On 05/05/22 at 1315, Routine [facility] butalbital- acetaminoph en-caff 50-325-40 mg tablet 2021-05 00:00: 00 Yes [id number] 1{tbl} Take 1 tablet by mouth every 4 (four) hours as needed for Pain (scale 7-10). [facility] HYDROcodone -acetaminop hen (NORCO) 10-325 mg tablet 1 tablet 2021-05 16:30: 00 04-26 15:23 :00 No 1{tbl} 1 tablet, Oral, ONCE, 1 dose, On [place] 04/26/22 at 1030, Routine [facility] diphenhydrA MINE (BENADRYL) tablet 25 mg 2021-05 15:45: 00 04-26 15:53 :00 No 25mg 25 mg, Oral, ONCE, 1 dose, On [place] 04/26/22 at 0945, [place] [facility] NaCl 0.9% (NS) bolus infusion 1,000 mL 2021-05 15:45: 00 04-26 15:55 :00 No 1000mL at 999 mL/hr, 1,000 mL, IV Piggyback, ONCE, 1 dose, On [place] 04/26/22 at 0945, STAT [facility] ondansetron (ZOFRAN (PF)) injection 4 mg 2021-05 14:45: 00 04-26 14:52 :00 No 4mg 4 mg, Slow IV Push, ONCE, 1 dose, On [place] 04/26/22 at 0845, Routine [facility] cephALEXin (KEFLEX) 500 mg capsule 2021-05 00:00: 00 05-04 05:59 :00 No [id number] 500mg Take 1 capsule by mouth in the morning and 1 capsule at noon and 1 capsule in the evening. Do all this for 7 days. [facility] ondansetron (ZOFRAN) 4 mg tablet 2021-05 00:00: 00 07-31 00:00 :00 No 4mg Take 1 tablet by mouth every 8 (eight) hours as needed for Nausea and Vomiting (N/V). [facility] galcanezuma b-gnlm prefilled (EMGALITY) subcutaneou s injection 2021-05 00:00: 00 Yes [id number] 120mg inject 120 mg under the skin once every month. [facility] methocarbam oL (ROBAXIN) injection 1,000 mg 2021-05 04:00: 00 Yes 1000mg 1,000 mg, Intravenou s, Q8H, First dose on 04/07/22 at 2200, Until Discontinu ed, Routine [facility] ketorolac (TORADOL) injection 30 mg 2021-05 00:45: 00 04-07 23:45 :00 No 30mg 30 mg, Slow IV Push, ONCE, 1 dose, On 04/07/22 at 1845, Routine [facility] HYDROcodone -acetaminop hen (NORCO) 10-325 mg tablet 1 tablet 2021-05 00:30: 00 04-07 23:45 :00 No 1{tbl} 1 tablet, Oral, ONCE NOW, 1 dose, On 04/07/22 at 1830, Routine [facility] diphenhydrA MINE (BENADRYL) injection 12.5 mg 2021-05 23:45: 00 04-07 23:46 :00 No 12.5mg 12.5 mg, Slow IV Push, ONCE, 1 dose, On 04/07/22 at 1745, STAT [facility] butorphanol (STADOL) injection 1 mg 2021-05 23:15: 00 04-07 22:48 :00 No 1mg 1 mg, IV Push, ONCE, 1 dose, On 04/07/22 at 1715, Routine [facility] NaCl 0.9% (NS) bolus infusion 1,000 mL 2021-05 23:15: 00 04-07 23:49 :00 No 1000mL at 999 mL/hr, 1,000 mL, IV Infusion, ONCE, 1 dose, On 04/07/22 at 1715, [place] [facility] ketorolac (TORADOL) injection 15 mg 2021-05 19:30: 00 03-24 18:45 :00 No 15mg 15 mg, Slow IV Push, ONCE, 1 dose, On 03/24/22 at 1330, Routine [facility] butorphanol (STADOL) injection 1 mg 2021-05 18:00: 00 03-24 17:26 :00 No 1mg 1 mg, Intravenou s, ONCE, 1 dose, On 03/24/22 at 1200, Routine [facility] proMETHazin e (PHENERGAN) 25 mg in NaCl 0.9% (NS) 50 mL IV piggyback 2021-05 18:00: 00 03-24 18:13 :00 No 25mg 25 mg, IV Piggyback, ONCE, 1 dose, On 03/24/22 at 1200, [place] [facility] butorphanol (STADOL) injection 1 mg 2021-05 17:15: 00 03-24 16:26 :00 No 1mg 1 mg, IV Push, ONCE, 1 dose, On 03/24/22 at 1115, Routine [facility] diphenhydrA MINE (BENADRYL) injection 25 mg 2021-05 15:30: 00 03-24 15:40 :00 No 25mg 25 mg, Slow IV Push, ONCE, 1 dose, On 03/24/22 at 0930, STAT [facility] ondansetron (ZOFRAN (PF)) injection 4 mg 2021-05 15:30: 00 03-24 14:25 :00 No 4mg 4 mg, Slow IV Push, ONCE, 1 dose, On 03/24/22 at 0930, [place] [facility] NaCl 0.9% (NS) IV infusion 1,000 mL 2021-05 15:15: 00 03-24 17:25 :00 No 1000mL at 999 mL/hr, Intravenou s, ONCE, 1 dose, On 03/24/22 at 0915, [facility] magnesium sulfate in water 2 gram/50 mL (4 %) infusion 2 g 2021-05 15:00: 00 03-24 14:47 :00 No 2g 2 g, IV Piggyback, Administer over 20 Minutes, ONCE, 1 dose, On 03/24/22 at 0900, Routine [facility] dexamethaso ne sod phos PF injection 6 mg 2021-05 14:15: 00 03-24 14:14 :00 No 6mg 6 mg, Slow IV Push, ONCE, 1 dose, On 03/24/22 at 0815, 1 mL [facility] diphenhydrA MINE (BENADRYL) injection 25 mg 2021-05 14:15: 00 03-24 14:16 :00 No 25mg 25 mg, Slow IV Push, ONCE, 1 dose, On 03/24/22 at 0815, STAT [facility] ALBUTEROL INHALE 2021-05 07:58: 13 03-24 00:00 :00 No [facility] rizatriptan 10 mg tablet 2021-05 00:00: 00 Yes [id number] 10mg Take 1 tablet by mouth as needed for Migraine. May repeat in 2 hours if needed [facility] Butalbital- Acetaminoph en-Caff (FIORICET) 50-300-40 mg per capsule 2021-05 00:00: 00 Yes [id number] 1{capsu le} Take 1 capsule by mouth every 6 (six) hours as needed for Other (headache) . [facility] magnesium oxide 200 mg magnesium Tab 2021-05 00:00: 00 04-07 00:00 :00 No [id number] 200mg Take 200 mg by mouth 2 (two) times daily. Indication s: headache [facility] SUMAtriptan 50 mg tablet 2021-05 00:00: 00 Yes 50mg Take 1 tablet by mouth as needed for Migraine. Take one tablet at onset of migraine, may take another tablet 2 hours after initial dose if no relief with first dose. DO NOT EXCEED 100mg in a 24 hour period. [facility] FENTanyl PF (SUBLIMAZE (PF)) injection 50 mcg 2021-05 15:30: 00 03-15 14:56 :00 No 50ug 50 mcg, Slow IV Push, ONCE, 1 dose, On [place] 03/15/22 at 1030, Routine [facility] proMETHazin e (PHENERGAN) tablet 25 mg 2021-05 14:45: 00 03-15 14:55 :00 No 25mg 25 mg, Oral, ONCE, 1 dose, On [place] 03/15/22 at 0945, [place] [facility] FENTanyl PF (SUBLIMAZE (PF)) injection 50 mcg 2021-05 14:45: 00 03-15 13:58 :00 No 50ug 50 mcg, Slow IV Push, ONCE, 1 dose, On [facility] 03/15/22 at 0945, Routine [facility] ondansetron (ZOFRAN (PF)) injection 4 mg 2021-05 14:00: 00 03-15 13:58 :00 No 4mg 4 mg, Slow IV Push, ONCE, 1 dose, On [facility] 03/15/22 at 0900, [place] [facility] carvediloL 25 mg tablet 2021-05 00:00: 00 09-05 00:00 :00 No [id number] 25mg Take 1 tablet by mouth in the morning and 1 tablet in the evening. Take with meals. [facility] ondansetron 4 mg disintegrat ing tablet 2021-05 00:00: 00 04-07 00:00 :00 No [id number] 4mg Take 1 tablet by mouth every 8 (eight) hours as needed for Nausea and Vomiting (N/V). [facility] ketorolac 10 mg tablet 2021-05 00:00: 00 04-07 00:00 :00 No [id number] 10mg Take 1 tablet by mouth every 6 (six) hours as needed for Pain (scale 7-10). [facility] proMETHazin e 25 mg tablet 2021-05 00:00: 00 04-07 00:00 :00 No [id number] 25mg Take 1 tablet by mouth every 6 (six) hours as needed for N/V unresponsi ve to Ondansetro n. [facility] cephALEXin 500 mg capsule 2021-05 00:00: 00 03-19 05:59 :00 No [id number] 500mg Take 1 capsule by mouth 4 (four) times daily for 3 days. [facility] predniSONE 20 mg tablet 2021-05 0-31 00:00: 00 03-15 04:59 :00 No [id number] 20mg Take 1 tablet by mouth in the morning for 2 days. [facility] methocarbam oL (ROBAXIN) tablet 500 mg 2021-05 16:45: 00 03-11 17:08 :00 No 500mg 500 mg, Oral, ONCE, 1 dose, On 03/11/22 at 1200, [place] [facility] dexamethaso ne sod phos PF injection 10 mg 2021-05 16:00: 00 03-11 16:00 :00 No 10mg 10 mg, Slow IV Push, ONCE, 1 dose, On 03/11/22 at 1100, 1 mL [facility] diphenhydrA MINE (BENADRYL) injection 25 mg 2021-05 15:46: 00 03-11 16:00 :00 No 25mg 25 mg, Slow IV Push, ONCE, 1 dose, On Sat03/11/22 at 1100, STAT [facility] NaCl 0.9% (NS) IV infusion 1,000 mL 2021-05 15:45: 00 03-11 16:04 :00 No 1000mL at 999 mL/hr, Intravenou s, ONCE, 1 dose, On Sat03/11/22 at 1045, Routine [facility] butalbital- acetaminoph en-caff (ESGIC) 50-325-40 mg tablet 1 tablet 2021-05 15:00: 00 03-11 15:05 :00 No 1{tbl} 1 tablet, Oral, ONCE, 1 dose, On 03/11/22 at 1015, [place] [facility] ketorolac (TORADOL) injection 15 mg 2021-05 14:45: 00 03-11 15:05 :00 No 15mg 15 mg, Slow IV Push, ONCE, 1 dose, On 03/11/22 at 0945, [place] [facility] proMETHazin e (PHENERGAN) 12.5 mg in NaCl 0.9% (NS) 50 mL IV piggyback 2021-05 14:45: 00 03-11 15:04 :00 No 12.5mg 12.5 mg, IV Piggyback, ONCE, 1 dose, On 03/11/22 at 0945, [place] [facility] proMETHazin e 25 mg tablet 2021-05 00:00: 00 07-31 00:00 :00 No [id number] 25mg Take 1 tablet by mouth every 6 (six) hours as needed for Nausea and Vomiting (N/V). [facility] methocarbam oL 500 mg tablet 2021-05 00:00: 00 04-07 00:00 :00 No [id number] 500mg Take 1 tablet by mouth 3 (three) times daily as needed for Pain (scale 7-10). [facility] topiramate 25 mg tablet 2021-05 00:00: 00 Yes [id number] 100mg Take 4 tablets by mouth in the morning. [facility] diphenhydrA MINE 25 mg capsule 2021-05 09:39: 59 02-27 00:00 :00 No 25mg Take 25 mg by mouth every 6 (six) hours as needed for Allergies. [facility] citalopram hydrobromid e (CITALOPRAM ORAL) 2021-05 09:39: 49 02-27 00:00 :00 No Take by mouth. [facility] carbamazepi ne (TEGRETOL ORAL) 2021-05 09:39: 28 02-27 00:00 :00 No Take by mouth. [facility] albuterol 90 mcg/actuati on inhaler 2021-05 00:00: 00 Yes [id number] 2{puff} Inhale 2 Puffs every 6 (six) hours as needed for Wheezing or Shortness of Breath. [facility] SUMAtriptan 50 mg tablet 2021-05 00:00: 00 03-21 00:00 :00 No 50mg Take 50 mg by mouth as needed for Migraine. Take one tablet at onset of migraine, may take another tablet 2 hours after initial dose if no relief with first dose. DO NOT EXCEED 100mg in a 24 hour period. [facility] benzonatate 200 mg capsule 2021-05 0-18 00:00: 00 03-07 04:59 :00 No [id number] 200mg Take 1 capsule by mouth 3 (three) times daily as needed for Cough for up to 7 days. [facility] butalbital- acetaminoph en-caff (ESGIC) 50-325-40 mg tablet 1 tablet 2021-05 08:15: 00 02-21 08:09 :00 No 1{tbl} 1 tablet, Oral, ONCE, 1 dose, On Sat02/21/22 at 0315, [facility] butorphanol (STADOL) injection 1 mg 2021-05 08:15: 00 02-21 07:28 :00 No 1mg 1 mg, IV Push, ONCE, 1 dose, On Sat02/21/22 at 0315, Routine [facility] NaCl 0.9% (NS) bolus infusion 1,000 mL 2021-05 07:15: 00 02-21 08:40 :00 No 1000mL at 999 mL/hr, 1,000 mL, IV Infusion, ONCE, 1 dose, On Sat02/21/22 at 0215, [facility] proMETHazin e (PHENERGAN) 12.5 mg in NaCl 0.9% (NS) 50 mL IV piggyback 2021-05 06:30: 00 02-21 06:38 :00 No 12.5mg 12.5 mg, IV Piggyback, ONCE, 1 dose, On Sat02/21/22 at 0130, [place] [facility] dexamethaso ne sod phos PF injection 10 mg 2021-05 06:30: 00 02-21 06:38 :00 No 10mg 10 mg, Slow IV Push, ONCE, 1 dose, On Sat02/21/22 at 0130, 1 mL [facility] ketorolac (TORADOL) injection 15 mg 2021-05 06:30: 00 02-21 06:38 :00 No 15mg 15 mg, Slow IV Push, ONCE, 1 dose, On Sat02/21/22 at 0130, [place] [facility] diphenhydrA MINE (BENADRYL) injection 25 mg 2021-05 06:30: 00 02-21 06:38 :00 No 25mg 25 mg, Slow IV Push, ONCE, 1 dose, On Sat02/21/22 at 0130, STAT [facility] FENTanyl PF (SUBLIMAZE (PF)) injection 50 mcg 2021-05 20:30: 00 02-18 19:44 :00 No 50ug 50 mcg, Slow IV Push, ONCE, 1 dose, On Sat02/18/22 at 1530, Routine [facility] ketorolac (TORADOL) injection 30 mg 2021-05 20:15: 00 02-18 20:09 :00 No 30mg 30 mg, Slow IV Push, ONCE, 1 dose, [facility] 1515[facility] 370-500 mL[facility] injection 60 mL 2021-05 19:30: 00 02-18 17:30 :00 No [id number] 60mL 60 mL, Intravenou s, ONCE, 1 dose, On Sat02/18/22 at 1430, Routine [facility] proMETHazin e (PHENERGAN) 12.5 mg in NaCl 0.9% (NS) 50 mL IV piggyback 2021-05 18:15: 00 02-18 18:19 :00 No 12.5mg 12.5 mg, IV Piggyback, ONCE, 1 dose, [facility]02[facility]18/22 [facility] 1315[facility] F[facility] (SUBLIMAZE (PF)) injection 50 mcg 2021-05 18:00: 00 02-18 17:26 :00 No 50ug 50 mcg, Slow IV Push, ONCE, 1 dose, On Sat02/18/22 at 1300, Routine [facility] ondansetron (ZOFRAN (PF)) injection 4 mg 2021-05 17:15: 00 02-18 17:27 :00 No 4mg 4 mg, Slow IV Push, ONCE, 1 dose, On [place] 02/18/22 at 1215, [facility] morpHINE (2 mg/mL) injection 4 mg 01-18 15:15: 00 01-18 14:49 :00 No 4mg 4 mg, Slow IV Push, ONCE, 1 dose, On [place] 01/18/22 at 1015, [facility] ondansetron (ZOFRAN (PF)) injection 4 mg 01-18 13:30: 00 01-18 13:33 :00 No 4mg 4 mg, Slow IV Push, ONCE, 1 dose, On [place] 01/18/22 at 0830, [facility] morpHINE (4 mg/mL) injection 4 mg 01-18 13:30: 00 01-18 13:34 :00 No 4mg 4 mg, Slow IV Push, ONCE, 1 dose, On [place] 01/18/22 at 0830, [facility] morpHINE (4 mg/mL) injection 4 mg 01-18 12:30: 00 01-18 11:39 :00 No 4mg 4 mg, Slow IV Push, ONCE, 1 dose, On [place] 01/18/22 at 0730, [facility] famotidine (PEPCID (PF)) injection 20 mg 01-18 11:30: 00 01-18 10:52 :00 No 20mg 20 mg, Slow IV Push, ONCE, 1 dose, On [place] 01/18/22 at 0630, [facility] ondansetron (ZOFRAN (PF)) injection 4 mg 01-18 11:30: 00 01-18 10:52 :00 No 4mg 4 mg, Slow IV Push, ONCE, 1 dose, On [place] 01/18/22 at 0630, [facility] iodixanoL (VISIPAQUE 270-150 mL) injection 80 mL 01-18 11:21: 00 01-18 11:15 :00 No [id number] 80mL 80 mL, Intravenou s, ONCE, 1 dose, On [place] 01/18/22 at 0630, Routine [facility] NaCl 0.9% (NS) bolus infusion 1,000 mL 01-18 11:15: 00 01-18 12:59 :00 No 1000mL at 999 mL/hr, 1,000 mL, IV Infusion, ONCE, 1 dose, On [place] 01/18/22 at 0615, [place] [facility] morpHINE (4 mg/mL) injection 4 mg 01-18 10:45: 00 01-18 10:52 :00 No 4mg 4 mg, Slow IV Push, ONCE, 1 dose, On [place] 01/18/22 at 0545, STAT [facility] traMADoL 50 mg tablet 01-18 00:00: 00 02-27 00:00 :00 No [id number] 50mg Take 1 tablet by mouth every 6 (six) hours as needed for Pain (scale 7-10). Indication s: acute pain [facility] ondansetron 4 mg disintegrat ing tablet 01-18 00:00: 00 02-27 00:00 :00 No [id number] 4mg Take 1 tablet by mouth every 8 (eight) hours as needed for Nausea and Vomiting (N/V). [facility] ibuprofen 600 mg tablet 01-18 00:00: 00 02-27 00:00 :00 No [id number] 600mg Take 1 tablet by mouth every 6 (six) hours as needed for Pain (scale 4-6). [facility] predniSONE 20 mg tablet 01-16 00:00: 00 01-24 04:59 :00 No [id number] 40mg Take 2 tablets by mouth in the morning for 7 days. [facility] morpHINE (4 mg/mL) injection 4 mg 01-15 16:15: 00 01-15 15:28 :00 No 4mg 4 mg, Slow IV Push, ONCE, 1 dose, On Sat01/15/22 at 1115, [facility] proMETHazin e (PHENERGAN) 12.5 mg in NaCl 0.9% (NS) 50 mL IV piggyback 01-15 15:30: 00 01-15 15:28 :00 No 12.5mg 12.5 mg, IV Piggyback, ONCE, 1 dose, On Sat01/15/22 at 1030, [facility] NaCl 0.9% (NS) bolus infusion 1,000 mL 01-15 15:00: 00 01-15 15:38 :00 No 1000mL at 999 mL/hr, 1,000 mL, IV Infusion, ONCE, 1 dose, On Sat01/15/22 at 1000, [facility] morpHINE (4 mg/mL) injection 4 mg 01-15 15:00: 00 01-15 14:37 :00 No 4mg 4 mg, Slow IV Push, ONCE, 1 dose, On Sat01/15/22 at 1000, [facility] ondansetron (ZOFRAN (PF)) injection 8 mg 01-15 14:15: 00 01-15 14:37 :00 No 8mg 8 mg, Slow IV Push, ONCE, 1 dose, On Sat01/15/22 at 0915, [facility] dexamethaso ne sod phos PF injection 10 mg 01-15 14:15: 00 01-15 14:37 :00 No 10mg 10 mg, Slow IV Push, ONCE, 1 dose, On Sat01/15/22 at 0915, 1 mL [facility] proMETHazin e 25 mg tablet 01-15 00:00: 00 02-27 00:00 :00 No [id number] 25mg Take 1 tablet by mouth every 6 (six) hours as needed for Nausea and Vomiting (N/V). [facility] ondansetron (ZOFRAN-ODT ) disintegrat ing tablet 4 mg 830 01:45: 00 01-09 00:56 :00 No 4mg 4 mg, Oral, ONCE, 1 dose, On Sat01/08/22 at 2045, Routine [facility] HYDROcodone -acetaminop hen (NORCO 5) 5-325 mg tablet 1 tablet 01-09 00:45: 00 01-09 00:37 :00 No 1{tbl} 1 tablet, Oral, ONCE, 1 dose, On Sat01/08/22 at 1945, [place] [facility] diphenhydrA MINE (BENADRYL) injection 25 mg 01-08 23:45: 00 01-08 23:51 :00 No 25mg 25 mg, Slow IV Push, ONCE, 1 dose, On Sat01/08/22 at 1845, STAT [facility] dexamethaso ne sod phos PF injection 10 mg 01-08 23:45: 00 01-08 23:50 :00 No 10mg 10 mg, Slow IV Push, ONCE, 1 dose, On Sat01/08/22 at 1845, 1 mL [facility] ketorolac (TORADOL) injection 30 mg 01-08 23:45: 00 01-08 23:51 :00 No 30mg 30 mg, Slow IV Push, ONCE, 1 dose, On Sat01/08/22 at 1845, [place] [facility] acetaminoph en (TYLENOL ARTHRITIS PAIN) 650 mg CR tablet 01-08 00:00: 00 04-07 00:00 :00 No [id number] 650mg Take 1 tablet by mouth every 8 (eight) hours as needed for Pain. [facility] ondansetron 4 mg disintegrat ing tablet 01-08 00:00: 00 02-27 00:00 :00 No [id number] 4mg Take 1 tablet by mouth every 8 (eight) hours as needed for Nausea and Vomiting (N/V). [facility] ketorolac 10 mg tablet 01-08 00:00: 00 02-27 00:00 :00 No [id number] 10mg Take 1 tablet by mouth every 6 (six) hours as needed for Pain (scale 4-6) or Pain (scale 7-10). [facility] metaxalone (SKELAXIN) 800 mg tablet 01-08 00:00: 00 02-27 00:00 :00 No [id number] 800mg Take 1 tablet by mouth in the morning and 1 tablet at noon and 1 tablet in the evening. [facility] metroNIDAZO LE 500 mg tablet 12-18 00:00: 00 02-27 00:00 :00 No 500mg Take 1 tablet by mouth every 12 (twelve) hours. [facility] trazodone/d ietary supp. no.8 (TRAZAMINE ORAL) 12-12 15:08: 46 12-12 00:00 :00 No Take by mouth. [facility] diphenhydrA MINE 25 mg capsule 12-12 13:03: 04 Yes 25mg Take 25 mg by mouth every 6 (six) hours as needed for Allergies. [facility] carbamazepi ne (TEGRETOL ORAL) 12-12 13:03: 04 Yes Take by mouth. [facility] traZODone 50 mg tablet 12-12 00:00: 00 02-27 00:00 :00 No [id number] 50mg Take 1 tablet by mouth at bedtime. [facility] SERTraline (ZOLOFT) 50 mg tablet 12-12 00:00: 00 02-27 00:00 :00 No [id number] 50mg Take 1 tablet by mouth in the morning. [facility] sulfamethox azole-trime thoprim (BACTRIM DS) 800-160 mg per tablet 12-12 00:00: 00 12-16 04:59 :00 No [id number] 1{tbl} Take 1 tablet by mouth in the morning and 1 tablet in the evening. Do all this for 3 days. [facility] ibuprofen 600 mg tablet 11-24 00:00: 02-27 00:00 :00 No [id number] 600mg Take 1 tablet by mouth every 6 (six) hours as needed for Pain (scale 4-6). [facility] acetaminoph en-codeine 300-30 mg tablet 11-24 00:00: 00 12-12 00:00 :00 No [id number] 1{tbl} Take 1 tablet by mouth every 4 (four) hours as needed for Pain (scale 4-6). Indication s: acute pain [facility] bromphenira mine-pseudo ephedrine-D M (BROMFED DM) 2-30-10 mg/5 mL syrup 11-18 00:00: 00 03-24 00:00 :00 No [id number] 5mL Take 5 mL by mouth 4 (four) times daily as needed for Congestion /Allergies or Cough. [facility] naproxen 500 mg tablet 11-18 00:00: 00 02-27 00:00 :00 No [id number] 500mg Take 1 tablet by mouth every 8 (eight) hours as needed for Pain (scale 4-6). [facility] cyclobenzap rine 10 mg tablet 11-18 00:00: 00 02-27 00:00 :00 No [id number] 10mg Take 1 tablet by mouth at bedtime as needed for Muscle Spasms. [facility] ibuprofen 100 mg/5 mL oral suspension 10-25 00:00: 00 02-27 00:00 :00 No [id number] 605mg Take 30.25 mL by mouth every 6 (six) hours as needed for Pain (scale 4-6) or Temp > 38.5 C. [facility] acetaminoph en 160 mg/5 mL liquid 10-25 00:00: 00 12-12 00:00 :00 No [id number] 608mg Take 19 mL by mouth every 6 (six) hours as needed for Fever. [facility] DULoxetine 60 mg capsule 10-06 00:00: 02-27 00:00 :00 No [facility] traZODone 50 mg tablet 27 00:00: 00 12-12 00:00 :00 No [facility] mometasone 50 mcg/actuati on nasal spray 09-28 00:00: 00 02-27 00:00 :00 No [id number] 1{spray } Use 1 [facility] in each nostril 2 (two) times daily. [facility] cetirizine (ZYRTEC) 10 mg tablet 16 00:00: 00 02-27 00:00 :00 No [id number] 10mg Take 1 tablet by mouth daily. [facility] DULoxetine 30 mg capsule 09-18 00:00: 00 02-27 00:00 :00 No [facility] gabapentin 300 mg capsule 09-18 00:00: 00 02-27 00:00 :00 No [facility] ondansetron 4 mg tablet 09-18 00:00: 00 02-27 00:00 :00 No [facility] amLODIPine 5 mg tablet 09-01 00:00: 00 02-27 00:00 :00 No 5mg Take 5 mg by mouth. [facility] buPROPion XL 150 mg 24 hr tablet -20 00:00: 00 02-27 00:00 :00 No 150mg Take 150 mg by mouth. [facility] proMETHazin e 25 mg tablet 4-05 00:00: 00 09-12 00:00 :00 No [id number] 25mg Take 1 tablet by mouth every 6 (six) hours as needed for Nausea and Vomiting (N/V). [facility] traMADoL 50 mg tablet 4-05 00:00: 00 09-12 00:00 :00 No [id number] 50mg Take 1 tablet by mouth every 6 (six) hours as needed (pain). Indication s: acute pain [facility] cyclobenzap rine 10 mg tablet 08-07 00:00: 00 08-22 04:59 :00 No [id number] 10mg Take 1 tablet by mouth 3 (three) times daily for 14 days. [facility] ibuprofen 800 mg tablet 08-07 00:00: 00 08-22 04:59 :00 No [id number] 800mg Take 1 tablet by mouth every 6 (six) hours as needed for Pain (scale 1-3) for up to 14 days. [facility] diclofenac 75 mg EC tablet 08-01 00:00: 00 09-12 00:00 :00 No [facility] orphenadrin e 100 mg SR tablet 08-01 00:00: 00 09-12 00:00 :00 No [facility] divalproex 125 mg EC tablet 07-21 00:00: 00 09-12 00:00 :00 No [id number] 125mg Take 1 tablet by mouth every 12 (twelve) hours. [facility] divalproex Sprinkles 125 mg SPRINKLE capsule 07-21 00:00: 00 09-12 00:00 :00 No [facility] ibuprofen 600 mg tablet 3 00:00: 00 08-01 04:59 :00 No [id number] 600mg Take 1 tablet by mouth every 6 (six) hours as needed for Temp > 38.5 C for up to 14 days. [facility] acetaminoph en-codeine 300-30 mg tablet 130 00:00: 00 09-12 00:00 :00 No TAKE 1 TABLET BY MOUTH EVERY 4 HOURS NEEDED FOR PAIN FOR 2 DAYS [facility] fluticasone propionate 110 mcg/actuati on inhaler 05-31 00:00: 00 09-28 00:00 :00 No [id number] 2{puff} Inhale 2 Puffs every 12 (twelve) hours. [facility] benzonatate (TESSALON PERLES) 100 mg capsule 05-25 00:00: 00 09-25 00:00 :00 No [id number] 100mg Take 1 capsule by mouth every 8 (eight) hours as needed for Cough. [facility] carvediloL 25 mg tablet 2020-05 00:00: 00 02-27 00:00 :00 No 25mg Take 1 tablet by mouth 2 (two) times daily with meals. [facility] losartan 50 mg tablet 2020-05 00:00: 00 02-27 00:00 :00 No 50mg Take 1 tablet by mouth 2 (two) times daily. [facility] proMETHazin e 25 mg tablet 2020-05 00:00: 00 09-12 00:00 :00 No [facility] methocarbam oL (ROBAXIN) 500 mg tablet 2020-05 00:00: 00 05-25 00:00 :00 No [id number] 500mg Take 1 tablet by mouth every 6 (six) hours as needed (MUSCLE SPASM). [facility] vitamin B-12 (VITAMIN B-12) 500 mcg tablet 2020-05 00:00: 00 09-12 00:00 :00 No [id number] 500ug Take 1 tablet by mouth daily. [facility] methylPREDN ISolone 4 mg tablets 2020-05 00:00: 00 05-25 00:00 :00 No [id number] Follow package directions [facility] fluticasone propion-chel meteroL 115-21 mcg/actuati on inhaler 02-09 00:00: 00 05-25 00:00 :00 No [id number] 2{puff} Inhale 2 Puffs 2 (two) times daily. Rinse mouth after each use. [facility] albuterol 2.5 mg /3 mL (0.083 %) nebulizer solution 02-09 00:00: 00 05-25 00:00 :00 No [id number] 2.5mg Inhale 3 mL every 6 (six) hours as needed for Wheezing or Shortness of Breath. [facility] methocarbam oL (ROBAXIN) 500 mg tablet 02-09 00:00: 00 05-02 00:00 :00 No [id number] 500mg Take 1 tablet by mouth every 6 (six) hours as needed (MUSCLE SPASM). [facility] bromphenira mine-pseudo ephedrine-D M (BROMFED DM) 2-30-10 mg/5 mL syrup 01-31 00:00: 00 02-09 00:00 :00 No [id number] 5mL Take 5 mL by mouth 4 (four) times daily as needed for Cough. [facility] methylPREDN ISolone (MEDROL, ANABELA,) 4 mg tablets 01-20 00:00: 00 02-09 00:00 :00 No [id number] Take by mouth SEE-INSTRU CTIONS. follow package directions [facility] albuterol 90 mcg/actuati on inhaler 01-12 00:00: 00 05-25 00:00 :00 No [id number] 2{puff} Inhale 2 Puffs every 4 (four) hours as needed for Wheezing or Shortness of Breath. [facility] benzonatate 100 mg capsule 01-12 00:00: 00 02-19 00:00 :00 No [id number] 100mg Take 1 capsule by mouth 3 (three) times daily as needed for Cough. [facility] losartan 50 mg tablet 12-23 00:00: 00 02-09 00:00 :00 No 50mg Take 1 tablet by mouth 2 (two) times daily. [facility] topiramate 25 mg tablet 11-22 00:00: 00 12-26 00:00 :00 No 25mg Take 1 tablet by mouth 2 (two) times daily. [facility] OXcarbazepi ne 150 mg tablet 11-21 00:00: 02-09 00:00 :00 No [facility] FLUoxetine 40 mg capsule -12 00:00: 00 12-26 00:00 :00 No [facility] traZODone 100 mg tablet 12 00:00: 00 12-26 00:00 :00 No [facility] dicyclomine 20 mg tablet 610 00:00: 00 12-26 00:00 :00 No [id number] 20mg Take 1 tablet by mouth 4 (four) times daily. [facility] proMETHazin e 25 mg tablet 6 00:00: 00 12-26 00:00 :00 No [id number] 25mg Take 1 tablet by mouth every 6 (six) hours as needed for Nausea and Vomiting (N/V). [facility] acetaminoph en-codeine 300-30 mg tablet 05 00:00: 00 12-26 00:00 :00 No TAKE 2 TABLETS BY MOUTH EVERY 6 HOURS NEEDED FOR PAIN [facility] oxybutynin (DITROPAN XL) 10 mg 24 hr tablet 10-09 00:00: 00 12-26 00:00 :00 No [id number] 10mg Take 1 tablet by mouth daily. [facility] ondansetron (ZOFRAN ODT) 4 mg disintegrat ing tablet 10-09 00:00: 00 12-26 00:00 :00 No [id number] 4mg Take 1 tablet by mouth every 8 (eight) hours as needed for Nausea and Vomiting (N/V). [facility] ciprofloxac in HCl 500 mg tablet 30 00:00: 00 11-22 00:00 :00 No [id number] 500mg Take 1 tablet by mouth 2 (two) times daily. [facility] predniSONE 20 mg tablet 25 00:00: 00 11-22 00:00 :00 No [id number] 20mg Take 1 tablet by mouth daily. Days 1-2: 3 pills (60 mg). Days 3-4: 2 pills (40 mg). Days 5-6: 1 pill (20 mg). Days 7-8: 1/2 pill (10 mg). Then stop [facility] mupirocin 2 % ointment 09-29 00:00: 00 12-26 00:00 :00 No [id number] Apply to both nostrils at bedtime [facility] naproxen sodium (ANAPROX DS) 550 mg tablet 09-28 00:00: 00 12-26 00:00 :00 No [id number] 550mg Take 1 tablet by mouth 2 (two) times daily with meals. [facility] losartan 25 mg tablet 09-16 00:00: 00 12-22 00:00 :00 No 25mg Take 1 tablet by mouth 2 (two) times daily. [facility] nadoloL 20 mg tablet 09-16 00:00: 00 12-22 00:00 :00 No [id number] Please take Nadalol 40 mg QAM [facility] LOESTRIN FE (LOESTRIN FE 1/20) 1 mg-20 mcg (21)/75 mg (7) tablet 09-06 00:00: 00 02-09 00:00 :00 No [id number] 1{tbl} Take 1 tablet by mouth daily. [facility] FLUoxetine 20 mg capsule 09-06 00:00: 00 11-22 00:00 :00 No [id number] 20mg Take 1 capsule by mouth daily. [facility] traZODone 50 mg tablet 09-06 00:00: 00 11-22 00:00 :00 No [id number] 50mg Take 1 tablet by mouth at bedtime. [facility] nadoloL 20 mg tablet 08-31 00:00: 00 09-16 00:00 :00 No [id number] Please take Nadalol 40 mg QAM and 20 mg QPM [facility] methocarbam oL (ROBAXIN) 500 mg tablet 4-08 00:00: 00 09-30 00:00 :00 No [id number] 500mg Take 1 tablet by mouth every 6 (six) hours as needed (MUSCLE SPASM). [facility] traMADoL (ULTRAM) 50 mg tablet 4-08 00:00: 00 09-30 00:00 :00 No [id number] 50mg Take 1 tablet by mouth every 6 (six) hours as needed for Pain (scale 7-10). Indication s: acute pain [facility] ibuprofen 800 mg tablet -04 00:00: 00 11-22 00:00 :00 No TAKE 1 TABLET BY MOUTH EVERY 12 HOURS NEEDED FOR PAIN [facility] ondansetron (ZOFRAN ODT) 4 mg disintegrat ing tablet 08-01 00:00: 00 09-30 00:00 :00 No [id number] 4mg Take 1 tablet by mouth every 8 (eight) hours as needed for Nausea and Vomiting (N/V). [facility] ketorolac 10 mg tablet 08-01 00:00: 00 09-30 00:00 :00 No [id number] 10mg Take 1 tablet by mouth every 6 (six) hours as needed for Pain (scale 4-6). [facility] ciprofloxac in HCl 250 mg tablet 08-01 00:00: 00 09-30 00:00 :00 No [id number] 250mg Take 1 tablet by mouth 2 (two) times daily. [facility] lidocaine 5 % (700 mg/patch) patch 07-22 00:00: 00 09-30 00:00 :00 No [id number] 1{patch } Apply 1 Patch to area(s) every 24 (twenty-fo ur) hours as needed for Localized pain. [facility] topiramate 25 mg tablet - 00:00: 00 11-22 00:00 :00 No 25mg Take 1 tablet by mouth 2 (two) times daily. [facility] metoprolol succinate XL 25 mg 24 hr tablet 2019-05 2-21 00:00: 00 06-15 00:00 :00 No [id number] 12.5mg Take 0.5 tablets by mouth 2 (two) times daily for 90 days. [facility] FLUoxetine 20 mg capsule 2019-05 00:00: 09-06 00:00 :00 No 20mg Take 20 mg by mouth daily. [facility] norgestimat e-ethinyl estradiol 0.25-35 mg-mcg per tablet 11-17 00:00: 04-15 00:00 :00 No [id number] 1{tbl} Take 1 tablet by mouth daily. [facility] buPROPion XL (WELLBUTRIN XL) 150 mg 24 hr tablet 08-12 00:00: 01-04 00:00 :00 No [id number] 150mg Take 1 tablet by mouth daily. [facility] acetaminoph en 325 mg tablet 07-22 00:00: 01-04 00:00 :00 No [id number] 650mg Take 2 tablets by mouth every 6 (six) hours as needed for Pain (scale 1-3) or Pain (scale 4-6). [facility] vitamin w/FA tablet 07-22 00:00: 00 01-04 00:00 :00 No [id number] 1{tbl} Take 1 tablet by mouth daily. [facility] docusate calcium 240 mg capsule 07-22 00:00: 00 01-04 00:00 :00 No [id number] 240mg Take 1 capsule by mouth once daily as needed for Constipati on. [facility] ferrous sulfate 325 mg (65 mg iron) tablet 07-22 00:00: 00 01-04 00:00 :00 No [id number] 325mg Take 1 tablet by mouth 2 (two) times daily. [facility] ibuprofen 600 mg tablet 07-22 00:00: 00 01-04 00:00 :00 No [id number] 600mg Take 1 tablet by mouth every 6 (six) hours as needed (Pain). Take with food or milk. [facility] ALBUTEROL 90 mcg/actuati on inhaler 05-26 00:00: 00 05-01 00:00 :00 No [id number] 103 INHALE 2 PUFFS BY MOUTH EVERY 6 HOURS NEEDED FOR WHEEZING FOR SHORTNESS OF BREATH [facility] buPROPion SR (WELLBUTRIN SR) 150 mg SR tablet 05-21 00:00: 00 01-04 00:00 :00 No [id number] 150mg Take 1 tablet by mouth 2 (two) times daily. [facility] busPIRone 10 mg tablet 05-21 00:00: 01-04 00:00 :00 No [id number] 109 10mg Take 1 tablet by mouth 3 (three) times daily. [facility] Immunizations Ordered Immunization Name Filled Immunization Name Date Status Comments Source Influenza Virus Vaccine Quad IM, Preserv and ABX Free 6 MO-64 YRS 2022-02-27 00:00:00 Completed [facility] Influenza Virus Vaccine Quad IM, Preserv and ABX Free 6 MO-64 YRS 2022-02-27 00:00:00 Completed [facility] Influenza Virus Vaccine Quad IM, Preserv and ABX Free 6 MO-64 YRS 2022-02-27 00:00:00 Completed [facility] Influenza Virus Vaccine Quad IM, Preserv and ABX Free 6 MO-64 YRS 2022-02-27 00:00:00 Completed [facility] Influenza Virus Vaccine Quad IM, Preserv and ABX Free 6 MO-64 YRS 2022-02-27 00:00:00 Completed [facility] Influenza Virus Vaccine Quad IM, Preserv and ABX Free 6 MO-64 YRS 2022-02-27 00:00:00 Completed [facility] Influenza Virus Vaccine Quad IM, Preserv and ABX Free 6 MO-64 YRS 2022-02-27 00:00:00 Completed [facility] Influenza Virus Vaccine Quad IM, Preserv and ABX Free 6 MO-64 YRS 2022-02-27 00:00:00 Completed [facility] Influenza Virus Vaccine Quad IM, Preserv and ABX Free 6 MO-64 YRS 2022-02-27 00:00:00 Completed [facility] Influenza Virus Vaccine Quad IM, Preserv and ABX Free 6 MO-64 YRS 2022-02-27 00:00:00 Completed [facility] Influenza Virus Vaccine Quad IM, Preserv and ABX Free 6 MO-64 YRS 2022-02-27 00:00:00 Completed [facility] Influenza Virus Vaccine Quad IM, Preserv and ABX Free 6 MO-64 YRS 2022-02-27 00:00:00 Completed [facility] Influenza Virus Vaccine Quad IM, Preserv and ABX Free 6 MO-64 YRS 2022-02-27 00:00:00 Completed [facility] Influenza Virus Vaccine Quad IM, Preserv and ABX Free 6 MO-64 YRS 2022-02-27 00:00:00 Completed [facility] Influenza Virus Vaccine Quad IM, Preserv and ABX Free 6 MO-64 YRS 2022-02-27 00:00:00 Completed [facility] Influenza Virus Vaccine Quad IM, Preserv and ABX Free 6 MO-64 YRS 2022-02-27 00:00:00 Completed [facility] Influenza Virus Vaccine Quad IM, Preserv and ABX Free 6 MO-64 YRS 2022-02-27 00:00:00 Completed [facility] Influenza Virus Vaccine Quad IM, Preserv and ABX Free 6 MO-64 YRS 2022-02-27 00:00:00 Completed [facility] Influenza Virus Vaccine Quad IM, Preserv and ABX Free 6 MO-64 YRS 2022-02-27 00:00:00 Completed [facility] Influenza Virus Vaccine Quad IM, Preserv and ABX Free 6 MO-64 YRS 2022-02-27 00:00:00 Completed [facility] Influenza Virus Vaccine Quad IM, Preserv and ABX Free 6 MO-64 YRS 2022-02-27 00:00:00 Completed [facility] Influenza Virus Vaccine Quad IM, Preserv and ABX Free 6 MO-64 YRS 2022-02-27 00:00:00 Completed [facility] Influenza Virus Vaccine Quad IM, Preserv and ABX Free 6 MO-64 YRS 2022-02-27 00:00:00 Completed [facility] Influenza Virus Vaccine Quad IM, Preserv and ABX Free 6 MO-64 YRS 2022-02-27 00:00:00 Completed [facility] Influenza Virus Vaccine Quad IM, Preserv and ABX Free 6 MO-64 YRS 2022-02-27 00:00:00 Completed [facility] Influenza Virus Vaccine Quad IM, Preserv and ABX Free 6 MO-64 YRS 2022-02-27 00:00:00 Completed [facility] Influenza Virus Vaccine Quad IM, Preserv and ABX Free 6 MO-64 YRS 2022-02-27 00:00:00 Completed [facility] Influenza Virus Vaccine Quad IM, Preserv and ABX Free 6 MO-64 YRS 2022-02-27 00:00:00 Completed [facility] Influenza Virus Vaccine Quad IM, Preserv and ABX Free 6 MO-64 YRS 2022-02-27 00:00:00 Completed [facility] Influenza Virus Vaccine Quad IM, Preserv and ABX Free 6 MO-64 YRS 2022-02-27 00:00:00 Completed [facility] Influenza Virus Vaccine Quad IM, Preserv and ABX Free 6 MO-64 YRS 2022-02-27 00:00:00 Completed [facility] Influenza Virus Vaccine Quad IM, Preserv and ABX Free 6 MO-64 YRS 2022-02-27 00:00:00 Completed [facility] Influenza Virus Vaccine Quad IM, Preserv and ABX Free 6 MO-64 YRS 2022-02-27 00:00:00 Completed [facility] Influenza Virus Vaccine Quad IM, Preserv and ABX Free 6 MO-64 YRS 2022-02-27 00:00:00 Completed [facility] Influenza Virus Vaccine Quad IM, Preserv and ABX Free 6 MO-64 YRS 2022-02-27 00:00:00 Completed [facility] Influenza Virus Vaccine Quad IM, Preserv and ABX Free 6 MO-64 YRS 2022-02-27 00:00:00 Completed [facility] Influenza Virus Vaccine Quad IM, Preserv and ABX Free 6 MO-64 YRS 2022-02-27 00:00:00 Completed [facility] Influenza Virus Vaccine Quad IM, Preserv and ABX Free 6 MO-64 YRS 2022-02-27 00:00:00 Completed [facility] Influenza Virus Vaccine Quad IM, Preserv and ABX Free 6 MO-64 YRS 2022-02-27 00:00:00 Completed [facility] Influenza Virus Vaccine Quad IM, Preserv and ABX Free 6 MO-64 YRS 2022-02-27 00:00:00 Completed [facility] Influenza Virus Vaccine Quad IM, Preserv and ABX Free 6 MO-64 YRS 2022-02-27 00:00:00 Completed [facility] Influenza Virus Vaccine Quad IM, Preserv and ABX Free 6 MO-64 YRS 2022-02-27 00:00:00 Completed [facility] Influenza Virus Vaccine Quad IM, Preserv and ABX Free 6 MO-64 YRS 2022-02-27 00:00:00 Completed [facility] Influenza Virus Vaccine Quad IM, Preserv and ABX Free 6 MO-64 YRS 2022-02-27 00:00:00 Completed [facility] Influenza Virus Vaccine Quad IM, Preserv and ABX Free 6 MO-64 YRS 2022-02-27 00:00:00 Completed [facility] Influenza Virus Vaccine Quad IM, Preserv and ABX Free 6 MO-64 YRS 2022-02-27 00:00:00 Completed [facility] Influenza Virus Vaccine Quad IM, Preserv and ABX Free 6 MO-64 YRS 2022-02-27 00:00:00 Completed [facility] Influenza Virus Vaccine Quad IM, Preserv and ABX Free 6 MO-64 YRS 2022-02-27 00:00:00 Completed [facility] Influenza Virus Vaccine Quad IM, Preserv and ABX Free 6 MO-64 YRS 2022-02-27 00:00:00 Completed [facility] Influenza Virus Vaccine Quad IM, Preserv and ABX Free 6 MO-64 YRS (FLUCELVAX) 2022-02-27 00:00:00 Completed [facility] Influenza Virus Vaccine Quad IM, Preserv and ABX Free 6 MO-64 YRS (FLUCELVAX) 2022-02-27 00:00:00 Completed [facility] Influenza Virus Vaccine Quad IM, Preserv and ABX Free 6 MO-64 YRS (FLUCELVAX) 2022-02-27 00:00:00 Completed [facility] Influenza Virus Vaccine Quad .5 mL IM 6+ MO 2022-02-21 00:00:00 Completed [facility] Influenza Virus Vaccine Quad .5 mL IM 6+ MO 2022-02-21 00:00:00 Completed [facility] Influenza Virus Vaccine Quad .5 mL IM 6+ MO 2022-02-21 00:00:00 Completed [facility] Influenza Virus Vaccine Quad .5 mL IM 6+ MO 2022-02-21 00:00:00 Completed [facility] Influenza Virus Vaccine Quad .5 mL IM 6+ MO 2022-02-21 00:00:00 Completed [facility] Influenza Virus Vaccine Quad .5 mL IM 6+ MO 2022-02-21 00:00:00 Completed [facility] Influenza Virus Vaccine Quad .5 mL IM 6+ MO 2022-02-21 00:00:00 Completed [facility] Influenza Virus Vaccine Quad .5 mL IM 6+ MO 2022-02-21 00:00:00 Completed [facility] Influenza Virus Vaccine Quad .5 mL IM 6+ MO 2022-02-21 00:00:00 Completed [facility] Influenza Virus Vaccine Quad .5 mL IM 6+ MO 2022-02-21 00:00:00 Completed [facility] Influenza Virus Vaccine Quad .5 mL IM 6+ MO 2022-02-21 00:00:00 Completed [facility] Influenza Virus Vaccine Quad .5 mL IM 6+ MO 2022-02-21 00:00:00 Completed [facility] Influenza Virus Vaccine Quad .5 mL IM 6+ MO 2022-02-21 00:00:00 Completed [facility] Influenza Virus Vaccine Quad .5 mL IM 6+ MO (FLUZONE/FLULAVAL/F LUARIX) 2022-02-21 00:00:00 Completed [facility] Influenza Virus Vaccine Quad .5 mL IM 6+ MO (FLUZONE/FLULAVAL/F LUARIX) 2022-02-21 00:00:00 Completed [facility] Influenza Virus Vaccine Quad .5 mL IM 6+ MO (FLUZONE/FLULAVAL/F LUARIX) 2022-02-21 00:00:00 Completed [facility] Influenza Virus Vaccine 2021-06-11 00:00:00 Completed [facility] Influenza Virus Vaccine 2021-06-11 00:00:00 Completed [facility] Influenza Virus Vaccine 2021-06-11 00:00:00 Completed [facility] Influenza Virus Vaccine 2021-06-11 00:00:00 Completed [facility] Influenza Virus Vaccine 2021-06-11 00:00:00 Completed [facility] Influenza Virus Vaccine 2021-06-11 00:00:00 Completed [facility] Influenza Virus Vaccine 2021-06-11 00:00:00 Completed [facility] Influenza Virus Vaccine 2021-06-11 00:00:00 Completed [facility] Influenza Virus Vaccine 2021-06-11 00:00:00 Completed [facility] Influenza Virus Vaccine 2021-06-11 00:00:00 Completed [facility] Influenza Virus Vaccine 2021-06-11 00:00:00 Completed [facility] Influenza Virus Vaccine 2021-06-11 00:00:00 Completed [facility] Influenza Virus Vaccine 2021-06-11 00:00:00 Completed [facility] Influenza Virus Vaccine 2021-06-11 00:00:00 Completed [facility] Influenza Virus Vaccine 2021-06-11 00:00:00 Completed [facility] Influenza Virus Vaccine 2021-06-11 00:00:00 Completed [facility] Influenza Virus Vaccine 2021-06-11 00:00:00 Completed [facility] Influenza Virus Vaccine 2021-06-11 00:00:00 Completed [facility] Influenza Virus Vaccine 2021-06-11 00:00:00 Completed [facility] Influenza Virus Vaccine 2021-06-11 00:00:00 Completed [facility] Influenza Virus Vaccine 2021-06-11 00:00:00 Completed [facility] Influenza Virus Vaccine 2021-06-11 00:00:00 Completed [facility] Influenza Virus Vaccine 2021-06-11 00:00:00 Completed [facility] Influenza Virus Vaccine 2021-06-11 00:00:00 Completed [facility] Influenza Virus Vaccine 2021-06-11 00:00:00 Completed [facility] Influenza Virus Vaccine 2021-06-11 00:00:00 Completed [facility] Influenza Virus Vaccine 2021-06-11 00:00:00 Completed [facility] Influenza Virus Vaccine 2021-06-11 00:00:00 Completed [facility] Influenza Virus Vaccine 2021-06-11 00:00:00 Completed [facility] Influenza Virus Vaccine 2021-06-11 00:00:00 Completed [facility] Influenza Virus Vaccine 2021-06-11 00:00:00 Completed [facility] Influenza Virus Vaccine 2021-06-11 00:00:00 Completed [facility] Influenza Virus Vaccine 2021-06-11 00:00:00 Completed [facility] Influenza Virus Vaccine 2021-06-11 00:00:00 Completed [facility] Influenza Virus Vaccine 2021-06-11 00:00:00 Completed [facility] Influenza Virus Vaccine 2021-06-11 00:00:00 Completed [facility] Influenza Virus Vaccine 2021-06-11 00:00:00 Completed [facility] Influenza Virus Vaccine 2021-06-11 00:00:00 Completed [facility] Influenza Virus Vaccine 2021-06-11 00:00:00 Completed [facility] Influenza Virus Vaccine 2021-06-11 00:00:00 Completed [facility] Influenza Virus Vaccine 2021-06-11 00:00:00 Completed [facility] Influenza Virus Vaccine 2021-06-11 00:00:00 Completed [facility] Influenza Virus Vaccine 2021-06-11 00:00:00 Completed [facility] Influenza Virus Vaccine 2021-06-11 00:00:00 Completed [facility] Influenza Virus Vaccine 2021-06-11 00:00:00 Completed [facility] Influenza Virus Vaccine 2021-06-11 00:00:00 Completed [facility] Influenza Virus Vaccine 2021-06-11 00:00:00 Completed [facility] Influenza Virus Vaccine 2021-06-11 00:00:00 Completed [facility] Influenza Virus Vaccine Quad .5 mL IM 6+ MO 2021-06-11 00:00:00 Completed [facility] Influenza Virus Vaccine 2021-06-11 00:00:00 Completed [facility] Influenza Virus Vaccine Quad .5 mL IM 6+ MO 2021-06-11 00:00:00 Completed [facility] Influenza Virus Vaccine 2021-06-11 00:00:00 Completed [facility] Influenza Virus Vaccine Quad .5 mL IM 6+ MO 2021-06-11 00:00:00 Completed [facility] Influenza Virus Vaccine 2021-06-11 00:00:00 Completed [facility] Influenza Virus Vaccine Quad .5 mL IM 6+ MO 2021-06-11 00:00:00 Completed [facility] Influenza Virus Vaccine 2021-06-11 00:00:00 Completed [facility] Influenza Virus Vaccine Quad .5 mL IM 6+ MO 2021-06-11 00:00:00 Completed [facility] Influenza Virus Vaccine 2021-06-11 00:00:00 Completed [facility] Influenza Virus Vaccine Quad .5 mL IM 6+ MO 2021-06-11 00:00:00 Completed [facility] Influenza Virus Vaccine 2021-06-11 00:00:00 Completed [facility] Influenza Virus Vaccine Quad .5 mL IM 6+ MO 2021-06-11 00:00:00 Completed [facility] Influenza Virus Vaccine 2021-06-11 00:00:00 Completed [facility] Influenza Virus Vaccine Quad .5 mL IM 6+ MO 2021-06-11 00:00:00 Completed [facility] Influenza Virus Vaccine 2021-06-11 00:00:00 Completed [facility] Influenza Virus Vaccine Quad .5 mL IM 6+ MO 2021-06-11 00:00:00 Completed [facility] Influenza Virus Vaccine 2021-06-11 00:00:00 Completed [facility] Influenza Virus Vaccine Quad .5 mL IM 6+ MO 2021-06-11 00:00:00 Completed [facility] Influenza Virus Vaccine 2021-06-11 00:00:00 Completed [facility] Influenza Virus Vaccine Quad .5 mL IM 6+ MO 2021-06-11 00:00:00 Completed [facility] Influenza Virus Vaccine 2021-06-11 00:00:00 Completed [facility] Influenza Virus Vaccine Quad .5 mL IM 6+ MO 2021-06-11 00:00:00 Completed [facility] Influenza Virus Vaccine 2021-06-11 00:00:00 Completed [facility] Influenza Virus Vaccine Quad .5 mL IM 6+ MO 2021-06-11 00:00:00 Completed [facility] Influenza Virus Vaccine 2021-06-11 00:00:00 Completed [facility] Influenza Virus Vaccine Quad .5 mL IM 6+ MO (FLUZONE/FLULAVAL/F LUARIX) 2021-06-11 00:00:00 Completed [facility] Influenza Virus Vaccine 2021-06-11 00:00:00 Completed [facility] Influenza Virus Vaccine Quad .5 mL IM 6+ MO (FLUZONE/FLULAVAL/F LUARIX) 2021-06-11 00:00:00 Completed [facility] Influenza Virus Vaccine 2021-06-11 00:00:00 Completed [facility] Influenza Virus Vaccine Quad .5 mL IM 6+ MO (FLUZONE/FLULAVAL/F LUARIX) 2021-06-11 00:00:00 Completed [facility] Influenza Virus Vaccine 2020-05-19 00:00:00 Completed [facility] Influenza Virus Vaccine 2020-05-19 00:00:00 Completed [facility] Influenza Virus Vaccine 2020-05-19 00:00:00 Completed [facility] Influenza Virus Vaccine 2020-05-19 00:00:00 Completed [facility] Influenza Virus Vaccine 2020-05-19 00:00:00 Completed [facility] Influenza Virus Vaccine 2020-05-19 00:00:00 Completed [facility] Influenza Virus Vaccine 2020-05-19 00:00:00 Completed [facility] Influenza Virus Vaccine 2020-05-19 00:00:00 Completed [facility] Influenza Virus Vaccine 2020-05-19 00:00:00 Completed [facility] Influenza Virus Vaccine 2020-05-19 00:00:00 Completed [facility] Influenza Virus Vaccine 2020-05-19 00:00:00 Completed [facility] Influenza Virus Vaccine 2020-05-19 00:00:00 Completed [facility] Influenza Virus Vaccine 2020-05-19 00:00:00 Completed [facility] Influenza Virus Vaccine 2020-05-19 00:00:00 Completed [facility] Influenza Virus Vaccine 2020-05-19 00:00:00 Completed [facility] Influenza Virus Vaccine 2020-05-19 00:00:00 Completed [facility] Influenza Virus Vaccine 2020-05-19 00:00:00 Completed [facility] Influenza Virus Vaccine 2020-05-19 00:00:00 Completed [facility] Influenza Virus Vaccine 2020-05-19 00:00:00 Completed [facility] Influenza Virus Vaccine 2020-05-19 00:00:00 Completed [facility] Influenza Virus Vaccine 2020-05-19 00:00:00 Completed [facility] Influenza Virus Vaccine 2020-05-19 00:00:00 Completed [facility] Influenza Virus Vaccine 2020-05-19 00:00:00 Completed [facility] Influenza Virus Vaccine 2020-05-19 00:00:00 Completed [facility] Influenza Virus Vaccine 2020-05-19 00:00:00 Completed [facility] Influenza Virus Vaccine 2020-05-19 00:00:00 Completed [facility] Influenza Virus Vaccine 2020-05-19 00:00:00 Completed [facility] Influenza Virus Vaccine 2020-05-19 00:00:00 Completed [facility] Influenza Virus Vaccine 2020-05-19 00:00:00 Completed [facility] Influenza Virus Vaccine 2020-05-19 00:00:00 Completed [facility] Influenza Virus Vaccine 2020-05-19 00:00:00 Completed [facility] Influenza Virus Vaccine 2020-05-19 00:00:00 Completed [facility] Influenza Virus Vaccine 2020-05-19 00:00:00 Completed [facility] Influenza Virus Vaccine 2020-05-19 00:00:00 Completed [facility] Influenza Virus Vaccine 2020-05-19 00:00:00 Completed [facility] Influenza Virus Vaccine 2020-05-19 00:00:00 Completed [facility] Influenza Virus Vaccine 2020-05-19 00:00:00 Completed [facility] Influenza Virus Vaccine 2020-05-19 00:00:00 Completed [facility] Influenza Virus Vaccine 2020-05-19 00:00:00 Completed [facility] Influenza Virus Vaccine 2020-05-19 00:00:00 Completed [facility] Influenza Virus Vaccine 2020-05-19 00:00:00 Completed [facility] Influenza Virus Vaccine 2020-05-19 00:00:00 Completed [facility] Influenza Virus Vaccine 2020-05-19 00:00:00 Completed [facility] Influenza Virus Vaccine 2020-05-19 00:00:00 Completed [facility] Influenza Virus Vaccine 2020-05-19 00:00:00 Completed [facility] Influenza Virus Vaccine 2020-05-19 00:00:00 Completed [facility] Influenza Virus Vaccine 2020-05-19 00:00:00 Completed [facility] Influenza Virus Vaccine 2020-05-19 00:00:00 Completed [facility] Influenza Virus Vaccine 2020-05-19 00:00:00 Completed [facility] Influenza Virus Vaccine 2020-05-19 00:00:00 Completed [facility] Influenza Virus Vaccine 2020-05-19 00:00:00 Completed [facility] Influenza Virus Vaccine 2020-05-19 00:00:00 Completed [facility] Influenza Virus Vaccine 2020-05-19 00:00:00 Completed [facility] Influenza Virus Vaccine 2020-05-19 00:00:00 Completed [facility] Influenza Virus Vaccine 2020-05-19 00:00:00 Completed [facility] Influenza Virus Vaccine 2020-05-19 00:00:00 Completed [facility] Influenza Virus Vaccine 2020-05-19 00:00:00 Completed [facility] Influenza Virus Vaccine 2020-05-19 00:00:00 Completed [facility] Influenza Virus Vaccine 2020-05-19 00:00:00 Completed [facility] Influenza Virus Vaccine 2020-05-19 00:00:00 Completed [facility] Influenza Virus Vaccine 2020-05-19 00:00:00 Completed [facility] Influenza Virus Vaccine 2020-05-19 00:00:00 Completed [facility] Influenza Virus Vaccine 2020-05-19 00:00:00 Completed [facility] Influenza Virus Vaccine Recomb Quad IM, Preserv and ABX Free 18-64 YRS 2020-05-16 00:00:00 Completed [facility] Influenza Virus Vaccine Recomb Quad IM, Preserv and ABX Free 18-64 YRS 2020-05-16 00:00:00 Completed [facility] Influenza Virus Vaccine Recomb Quad IM, Preserv and ABX Free 18-64 YRS 2020-05-16 00:00:00 Completed [facility] Influenza Virus Vaccine Recomb Quad IM, Preserv and ABX Free 18-64 YRS 2020-05-16 00:00:00 Completed [facility] Influenza Virus Vaccine Recomb Quad IM, Preserv and ABX Free 18-64 YRS 2020-05-16 00:00:00 Completed [facility] Influenza Virus Vaccine Recomb Quad IM, Preserv and ABX Free 18-64 YRS 2020-05-16 00:00:00 Completed [facility] Influenza Virus Vaccine Recomb Quad IM, Preserv and ABX Free 18-64 YRS 2020-05-16 00:00:00 Completed [facility] Influenza Virus Vaccine Recomb Quad IM, Preserv and ABX Free 18-64 YRS 2020-05-16 00:00:00 Completed [facility] Influenza Virus Vaccine Recomb Quad IM, Preserv and ABX Free 18-64 YRS 2020-05-16 00:00:00 Completed [facility] Influenza Virus Vaccine Recomb Quad IM, Preserv and ABX Free 18-64 YRS 2020-05-16 00:00:00 Completed [facility] Influenza Virus Vaccine Recomb Quad IM, Preserv and ABX Free 18-64 YRS 2020-05-16 00:00:00 Completed [facility] Influenza Virus Vaccine Recomb Quad IM, Preserv and ABX Free 18-64 YRS 2020-05-16 00:00:00 Completed [facility] Influenza Virus Vaccine Recomb Quad IM, Preserv and ABX Free 18-64 YRS 2020-05-16 00:00:00 Completed [facility] Influenza Virus Vaccine Recomb Quad IM, Preserv and ABX Free 18-64 YRS 2020-05-16 00:00:00 Completed [facility] Influenza Virus Vaccine Recomb Quad IM, Preserv and ABX Free 18-64 YRS 2020-05-16 00:00:00 Completed [facility] Influenza Virus Vaccine Recomb Quad IM, Preserv and ABX Free 18-64 YRS 2020-05-16 00:00:00 Completed [facility] Influenza Virus Vaccine Recomb Quad IM, Preserv and ABX Free 18-64 YRS 2020-05-16 00:00:00 Completed [facility] Influenza Virus Vaccine Recomb Quad IM, Preserv and ABX Free 18-64 YRS 2020-05-16 00:00:00 Completed [facility] Influenza Virus Vaccine Recomb Quad IM, Preserv and ABX Free 18-64 YRS 2020-05-16 00:00:00 Completed [facility] Influenza Virus Vaccine Recomb Quad IM, Preserv and ABX Free 18-64 YRS 2020-05-16 00:00:00 Completed [facility] Influenza Virus Vaccine Recomb Quad IM, Preserv and ABX Free 18-64 YRS 2020-05-16 00:00:00 Completed [facility] Influenza Virus Vaccine Recomb Quad IM, Preserv and ABX Free 18-64 YRS 2020-05-16 00:00:00 Completed [facility] Influenza Virus Vaccine Recomb Quad IM, Preserv and ABX Free 18-64 YRS 2020-05-16 00:00:00 Completed [facility] Influenza Virus Vaccine Recomb Quad IM, Preserv and ABX Free 18-64 YRS 2020-05-16 00:00:00 Completed [facility] Influenza Virus Vaccine Recomb Quad IM, Preserv and ABX Free 18-64 YRS 2020-05-16 00:00:00 Completed [facility] Influenza Virus Vaccine Recomb Quad IM, Preserv and ABX Free 18-64 YRS 2020-05-16 00:00:00 Completed [facility] Influenza Virus Vaccine Recomb Quad IM, Preserv and ABX Free 18-64 YRS 2020-05-16 00:00:00 Completed [facility] Influenza Virus Vaccine Recomb Quad IM, Preserv and ABX Free 18-64 YRS 2020-05-16 00:00:00 Completed [facility] Influenza Virus Vaccine Recomb Quad IM, Preserv and ABX Free 18-64 YRS 2020-05-16 00:00:00 Completed [facility] Influenza Virus Vaccine Recomb Quad IM, Preserv and ABX Free 18-64 YRS 2020-05-16 00:00:00 Completed [facility] Influenza Virus Vaccine Recomb Quad IM, Preserv and ABX Free 18-64 YRS 2020-05-16 00:00:00 Completed [facility] Influenza Virus Vaccine Recomb Quad IM, Preserv and ABX Free 18-64 YRS 2020-05-16 00:00:00 Completed [facility] Influenza Virus Vaccine Recomb Quad IM, Preserv and ABX Free 18-64 YRS 2020-05-16 00:00:00 Completed [facility] Influenza Virus Vaccine Recomb Quad IM, Preserv and ABX Free 18-64 YRS 2020-05-16 00:00:00 Completed [facility] Influenza Virus Vaccine Recomb Quad IM, Preserv and ABX Free 18-64 YRS 2020-05-16 00:00:00 Completed [facility] Influenza Virus Vaccine Recomb Quad IM, Preserv and ABX Free 18-64 YRS 2020-05-16 00:00:00 Completed [facility] Influenza Virus Vaccine Recomb Quad IM, Preserv and ABX Free 18-64 YRS 2020-05-16 00:00:00 Completed [facility] Influenza Virus Vaccine Recomb Quad IM, Preserv and ABX Free 18-64 YRS 2020-05-16 00:00:00 Completed [facility] Influenza Virus Vaccine Recomb Quad IM, Preserv and ABX Free 18-64 YRS 2020-05-16 00:00:00 Completed [facility] Influenza Virus Vaccine Recomb Quad IM, Preserv and ABX Free 18-64 YRS 2020-05-16 00:00:00 Completed [facility] Influenza Virus Vaccine Recomb Quad IM, Preserv and ABX Free 18-64 YRS 2020-05-16 00:00:00 Completed [facility] Influenza Virus Vaccine Recomb Quad IM, Preserv and ABX Free 18-64 YRS 2020-05-16 00:00:00 Completed [facility] Influenza Virus Vaccine Recomb Quad IM, Preserv and ABX Free 18-64 YRS 2020-05-16 00:00:00 Completed [facility] Influenza Virus Vaccine Recomb Quad IM, Preserv and ABX Free 18-64 YRS 2020-05-16 00:00:00 Completed [facility] Influenza Virus Vaccine Recomb Quad IM, Preserv and ABX Free 18-64 YRS 2020-05-16 00:00:00 Completed [facility] Influenza Virus Vaccine Recomb Quad IM, Preserv and ABX Free 18-64 YRS 2020-05-16 00:00:00 Completed [facility] Influenza Virus Vaccine Recomb Quad IM, Preserv and ABX Free 18-64 YRS 2020-05-16 00:00:00 Completed [facility] Influenza Virus Vaccine Recomb Quad IM, Preserv and ABX Free 18-64 YRS 2020-05-16 00:00:00 Completed [facility] Influenza Virus Vaccine Recomb Quad IM, Preserv and ABX Free 18-64 YRS 2020-05-16 00:00:00 Completed [facility] Influenza Virus Vaccine Recomb Quad IM, Preserv and ABX Free 18-64 YRS 2020-05-16 00:00:00 Completed [facility] Influenza Virus Vaccine Recomb Quad IM, Preserv and ABX Free 18-64 YRS 2020-05-16 00:00:00 Completed [facility] Influenza Virus Vaccine Recomb Quad IM, Preserv and ABX Free 18-64 YRS 2020-05-16 00:00:00 Completed [facility] Influenza Virus Vaccine Recomb Quad IM, Preserv and ABX Free 18-64 YRS 2020-05-16 00:00:00 Completed [facility] Influenza Virus Vaccine Recomb Quad IM, Preserv and ABX Free 18-64 YRS 2020-05-16 00:00:00 Completed [facility] Influenza Virus Vaccine Recomb Quad IM, Preserv and ABX Free 18-64 YRS 2020-05-16 00:00:00 Completed [facility] Influenza Virus Vaccine Recomb Quad IM, Preserv and ABX Free 18-64 YRS 2020-05-16 00:00:00 Completed [facility] Influenza Virus Vaccine Recomb Quad IM, Preserv and ABX Free 18-64 YRS 2020-05-16 00:00:00 Completed [facility] Influenza Virus Vaccine Recomb Quad IM, Preserv and ABX Free 18-64 YRS 2020-05-16 00:00:00 Completed [facility] Influenza Virus Vaccine Recomb Quad IM, Preserv and ABX Free 18-64 YRS 2020-05-16 00:00:00 Completed [facility] Influenza Virus Vaccine Recomb Quad IM, Preserv and ABX Free 18-64 YRS 2020-05-16 00:00:00 Completed [facility] Influenza Virus Vaccine Recomb Quad IM, Preserv and ABX Free 18-64 YRS 2020-05-16 00:00:00 Completed [facility] Influenza Virus Vaccine Recomb Quad IM, Preserv and ABX Free 18-64 YRS 2020-05-16 00:00:00 Completed [facility] Influenza Virus Vaccine Recomb Quad IM, Preserv and ABX Free 18-64 YRS 2020-05-16 00:00:00 Completed [facility] TDAP (ADACEL) VACCINE 2019-05-21 00:00:00 Completed [facility] TDAP (ADACEL) VACCINE 2019-05-21 00:00:00 Completed [facility] TDAP (ADACEL) VACCINE 2019-05-21 00:00:00 Completed [facility] TDAP (ADACEL) VACCINE 2019-05-21 00:00:00 Completed [facility] TDAP (ADACEL) VACCINE 2019-05-21 00:00:00 Completed [facility] TDAP (ADACEL) VACCINE 2019-05-21 00:00:00 Completed [facility] TDAP (ADACEL) VACCINE 2019-05-21 00:00:00 Completed [facility] TDAP (ADACEL) VACCINE 2019-05-21 00:00:00 Completed [facility] TDAP (ADACEL) VACCINE 2019-05-21 00:00:00 Completed [facility] TDAP (ADACEL) VACCINE 2019-05-21 00:00:00 Completed [facility] TDAP (ADACEL) VACCINE 2019-05-21 00:00:00 Completed [facility] TDAP (ADACEL) VACCINE 2019-05-21 00:00:00 Completed [facility] TDAP (ADACEL) VACCINE 2019-05-21 00:00:00 Completed [facility] TDAP (ADACEL) VACCINE 2019-05-21 00:00:00 Completed [facility] TDAP (ADACEL) VACCINE 2019-05-21 00:00:00 Completed [facility] TDAP (ADACEL) VACCINE 2019-05-21 00:00:00 Completed [facility] TDAP (ADACEL) VACCINE 2019-05-21 00:00:00 Completed [facility] TDAP (ADACEL) VACCINE 2019-05-21 00:00:00 Completed [facility] TDAP (ADACEL) VACCINE 2019-05-21 00:00:00 Completed [facility] TDAP (ADACEL) VACCINE 2019-05-21 00:00:00 Completed [facility] TDAP (ADACEL) VACCINE 2019-05-21 00:00:00 Completed [facility] TDAP (ADACEL) VACCINE 2019-05-21 00:00:00 Completed [facility] TDAP (ADACEL) VACCINE 2019-05-21 00:00:00 Completed [facility] TDAP (ADACEL) VACCINE 2019-05-21 00:00:00 Completed [facility] TDAP (ADACEL) VACCINE 2019-05-21 00:00:00 Completed [facility] TDAP (ADACEL) VACCINE 2019-05-21 00:00:00 Completed [facility] TDAP (ADACEL) VACCINE 2019-05-21 00:00:00 Completed [facility] TDAP (ADACEL) VACCINE 2019-05-21 00:00:00 Completed [facility] TDAP (ADACEL) VACCINE 2019-05-21 00:00:00 Completed [facility] TDAP (ADACEL) VACCINE 2019-05-21 00:00:00 Completed [facility] TDAP (ADACEL) VACCINE 2019-05-21 00:00:00 Completed [facility] TDAP (ADACEL) VACCINE 2019-05-21 00:00:00 Completed [facility] TDAP (ADACEL) VACCINE 2019-05-21 00:00:00 Completed [facility] TDAP (ADACEL) VACCINE 2019-05-21 00:00:00 Completed [facility] TDAP (ADACEL) VACCINE 2019-05-21 00:00:00 Completed [facility] TDAP (ADACEL) VACCINE 2019-05-21 00:00:00 Completed [facility] TDAP (ADACEL) VACCINE 2019-05-21 00:00:00 Completed [facility] TDAP (ADACEL) VACCINE 2019-05-21 00:00:00 Completed [facility] TDAP (ADACEL) VACCINE 2019-05-21 00:00:00 Completed [facility] TDAP (ADACEL) VACCINE 2019-05-21 00:00:00 Completed [facility] TDAP (ADACEL) VACCINE 2019-05-21 00:00:00 Completed [facility] TDAP (ADACEL) VACCINE 2019-05-21 00:00:00 Completed [facility] TDAP (ADACEL) VACCINE 2019-05-21 00:00:00 Completed [facility] TDAP (ADACEL) VACCINE 2019-05-21 00:00:00 Completed [facility] TDAP (ADACEL) VACCINE 2019-05-21 00:00:00 Completed [facility] TDAP (ADACEL) VACCINE 2019-05-21 00:00:00 Completed [facility] TDAP (ADACEL) VACCINE 2019-05-21 00:00:00 Completed [facility] TDAP (ADACEL) VACCINE 2019-05-21 00:00:00 Completed [facility] TDAP (ADACEL) VACCINE 2019-05-21 00:00:00 Completed [facility] TDAP (ADACEL) VACCINE 2019-05-21 00:00:00 Completed [facility] TDAP (ADACEL) VACCINE 2019-05-21 00:00:00 Completed [facility] TDAP (ADACEL) VACCINE 2019-05-21 00:00:00 Completed [facility] TDAP (ADACEL) VACCINE 2019-05-21 00:00:00 Completed [facility] TDAP (ADACEL) VACCINE 2019-05-21 00:00:00 Completed [facility] TDAP (ADACEL) VACCINE 2019-05-21 00:00:00 Completed [facility] TDAP (ADACEL) VACCINE 2019-05-21 00:00:00 Completed [facility] TDAP (ADACEL) VACCINE 2019-05-21 00:00:00 Completed [facility] TDAP (ADACEL) VACCINE 2019-05-21 00:00:00 Completed [facility] TDAP (ADACEL) VACCINE 2019-05-21 00:00:00 Completed [facility] TDAP (ADACEL) VACCINE 2019-05-21 00:00:00 Completed [facility] TDAP (ADACEL) VACCINE 2019-05-21 00:00:00 Completed [facility] TDAP (ADACEL) VACCINE 2019-05-21 00:00:00 Completed [facility] TDAP (ADACEL) VACCINE 2019-05-21 00:00:00 Completed [facility] Influenza Virus Vaccine Quad .5 mL IM 6+ MO 2019-02-06 00:00:00 Completed [facility] Influenza Virus Vaccine Quad .5 mL IM 6+ MO 2019-02-06 00:00:00 Completed [facility] Influenza Virus Vaccine Quad .5 mL IM 6+ MO 2019-02-06 00:00:00 Completed [facility] Influenza Virus Vaccine Quad .5 mL IM 6+ MO 2019-02-06 00:00:00 Completed [facility] Influenza Virus Vaccine Quad .5 mL IM 6+ MO 2019-02-06 00:00:00 Completed [facility] Influenza Virus Vaccine Quad .5 mL IM 6+ MO 2019-02-06 00:00:00 Completed [facility] Influenza Virus Vaccine Quad .5 mL IM 6+ MO 2019-02-06 00:00:00 Completed [facility] Influenza Virus Vaccine Quad .5 mL IM 6+ MO 2019-02-06 00:00:00 Completed [facility] Influenza Virus Vaccine Quad .5 mL IM 6+ MO 2019-02-06 00:00:00 Completed [facility] Influenza Virus Vaccine Quad .5 mL IM 6+ MO 2019-02-06 00:00:00 Completed [facility] Influenza Virus Vaccine Quad .5 mL IM 6+ MO 2019-02-06 00:00:00 Completed [facility] Influenza Virus Vaccine Quad .5 mL IM 6+ MO 2019-02-06 00:00:00 Completed [facility] Influenza Virus Vaccine Quad .5 mL IM 6+ MO 2019-02-06 00:00:00 Completed [facility] Influenza Virus Vaccine Quad .5 mL IM 6+ MO 2019-02-06 00:00:00 Completed [facility] Influenza Virus Vaccine Quad .5 mL IM 6+ MO 2019-02-06 00:00:00 Completed [facility] Influenza Virus Vaccine Quad .5 mL IM 6+ MO 2019-02-06 00:00:00 Completed [facility] Influenza Virus Vaccine Quad .5 mL IM 6+ MO 2019-02-06 00:00:00 Completed [facility] Influenza Virus Vaccine Quad .5 mL IM 6+ MO 2019-02-06 00:00:00 Completed [facility] Influenza Virus Vaccine Quad .5 mL IM 6+ MO 2019-02-06 00:00:00 Completed [facility] Influenza Virus Vaccine Quad .5 mL IM 6+ MO 2019-02-06 00:00:00 Completed [facility] Influenza Virus Vaccine Quad .5 mL IM 6+ MO 2019-02-06 00:00:00 Completed [facility] Influenza Virus Vaccine Quad .5 mL IM 6+ MO 2019-02-06 00:00:00 Completed [facility] Influenza Virus Vaccine Quad .5 mL IM 6+ MO 2019-02-06 00:00:00 Completed [facility] Influenza Virus Vaccine Quad .5 mL IM 6+ MO 2019-02-06 00:00:00 Completed [facility] Influenza Virus Vaccine Quad .5 mL IM 6+ MO 2019-02-06 00:00:00 Completed [facility] Influenza Virus Vaccine Quad .5 mL IM 6+ MO 2019-02-06 00:00:00 Completed [facility] Influenza Virus Vaccine Quad .5 mL IM 6+ MO 2019-02-06 00:00:00 Completed [facility] Influenza Virus Vaccine Quad .5 mL IM 6+ MO 2019-02-06 00:00:00 Completed [facility] Influenza Virus Vaccine Quad .5 mL IM 6+ MO 2019-02-06 00:00:00 Completed [facility] Influenza Virus Vaccine Quad .5 mL IM 6+ MO 2019-02-06 00:00:00 Completed [facility] Influenza Virus Vaccine Quad .5 mL IM 6+ MO 2019-02-06 00:00:00 Completed [facility] Influenza Virus Vaccine Quad .5 mL IM 6+ MO 2019-02-06 00:00:00 Completed [facility] Influenza Virus Vaccine Quad .5 mL IM 6+ MO 2019-02-06 00:00:00 Completed [facility] Influenza Virus Vaccine Quad .5 mL IM 6+ MO 2019-02-06 00:00:00 Completed [facility] Influenza Virus Vaccine Quad .5 mL IM 6+ MO 2019-02-06 00:00:00 Completed [facility] Influenza Virus Vaccine Quad .5 mL IM 6+ MO 2019-02-06 00:00:00 Completed [facility] Influenza Virus Vaccine Quad .5 mL IM 6+ MO 2019-02-06 00:00:00 Completed [facility] Influenza Virus Vaccine Quad .5 mL IM 6+ MO 2019-02-06 00:00:00 Completed [facility] Influenza Virus Vaccine Quad .5 mL IM 6+ MO 2019-02-06 00:00:00 Completed [facility] Influenza Virus Vaccine Quad .5 mL IM 6+ MO 2019-02-06 00:00:00 Completed [facility] Influenza Virus Vaccine Quad .5 mL IM 6+ MO 2019-02-06 00:00:00 Completed [facility] Influenza Virus Vaccine Quad .5 mL IM 6+ MO 2019-02-06 00:00:00 Completed [facility] Influenza Virus Vaccine Quad .5 mL IM 6+ MO 2019-02-06 00:00:00 Completed [facility] Influenza Virus Vaccine Quad .5 mL IM 6+ MO 2019-02-06 00:00:00 Completed [facility] Influenza Virus Vaccine Quad .5 mL IM 6+ MO 2019-02-06 00:00:00 Completed [facility] Influenza Virus Vaccine Quad .5 mL IM 6+ MO 2019-02-06 00:00:00 Completed [facility] Influenza Virus Vaccine Quad .5 mL IM 6+ MO 2019-02-06 00:00:00 Completed [facility] Influenza Virus Vaccine Quad .5 mL IM 6+ MO 2019-02-06 00:00:00 Completed [facility] Influenza Virus Vaccine Quad .5 mL IM 6+ MO 2019-02-06 00:00:00 Completed [facility] Influenza Virus Vaccine Quad .5 mL IM 6+ MO 2019-02-06 00:00:00 Completed [facility] Influenza Virus Vaccine Quad .5 mL IM 6+ MO 2019-02-06 00:00:00 Completed [facility] Influenza Virus Vaccine Quad .5 mL IM 6+ MO 2019-02-06 00:00:00 Completed [facility] Influenza Virus Vaccine Quad .5 mL IM 6+ MO 2019-02-06 00:00:00 Completed [facility] Influenza Virus Vaccine Quad .5 mL IM 6+ MO 2019-02-06 00:00:00 Completed [facility] Influenza Virus Vaccine Quad .5 mL IM 6+ MO 2019-02-06 00:00:00 Completed [facility] Influenza Virus Vaccine Quad .5 mL IM 6+ MO 2019-02-06 00:00:00 Completed [facility] Influenza Virus Vaccine Quad .5 mL IM 6+ MO 2019-02-06 00:00:00 Completed [facility] Influenza Virus Vaccine Quad .5 mL IM 6+ MO 2019-02-06 00:00:00 Completed [facility] Influenza Virus Vaccine Quad .5 mL IM 6+ MO 2019-02-06 00:00:00 Completed [facility] Influenza Virus Vaccine Quad .5 mL IM 6+ MO 2019-02-06 00:00:00 Completed [facility] Influenza Virus Vaccine Quad .5 mL IM 6+ MO (FLUZONE/FLULAVAL/F LUARIX) 2019-02-06 00:00:00 Completed [facility] Influenza Virus Vaccine Quad .5 mL IM 6+ MO (FLUZONE/FLULAVAL/F LUARIX) 2019-02-06 00:00:00 Completed [facility] Influenza Virus Vaccine Quad .5 mL IM 6+ MO (FLUZONE/FLULAVAL/F LUARIX) 2019-02-06 00:00:00 Completed [facility] Influenza Virus Vaccine Quad .5 mL IM 6+ MO (FLUZONE/FLULAVAL/F LUARIX) Unknown Completed [facility] TDAP (ADACEL) VACCINE Unknown Completed [facility] Influenza Virus Vaccine Recomb Quad IM, Preserv and ABX Free 18-64 YRS Unknown Completed [facility] Influenza Virus Vaccine Unknown Completed [facility] Influenza Virus Vaccine Unknown Completed [facility] Influenza Virus Vaccine Quad IM, Preserv and ABX Free 6 MO-64 YRS (FLUCELVAX) Unknown Completed [facility] Influenza Virus Vaccine Quad .5 mL IM 6+ MO (FLUZONE/FLULAVAL/F LUARIX) Unknown Completed [facility] Influenza Virus Vaccine Quad .5 mL IM 6+ MO (FLUZONE/FLULAVAL/F LUARIX) Unknown Completed [facility] Influenza Virus Vaccine Quad .5 mL IM 6+ MO (FLUZONE/FLULAVAL/F LUARIX) Unknown Completed [facility] TDAP (ADACEL) VACCINE Unknown Completed [facility] Influenza Virus Vaccine Recomb Quad IM, Preserv and ABX Free 18-64 YRS Unknown Completed [facility] Influenza Virus Vaccine Unknown Completed [facility] Influenza Virus Vaccine Unknown Completed [facility] Influenza Virus Vaccine Quad IM, Preserv and ABX Free 6 MO-64 YRS (FLUCELVAX) Unknown Completed [facility] Influenza Virus Vaccine Quad .5 mL IM 6+ MO (FLUZONE/FLULAVAL/F LUARIX) Unknown Completed [facility] Influenza Virus Vaccine Quad .5 mL IM 6+ MO (FLUZONE/FLULAVAL/F LUARIX) Unknown Completed [facility] Influenza Virus Vaccine Quad .5 mL IM 6+ MO (FLUZONE/FLULAVAL/F LUARIX) Unknown Completed [facility] TDAP (ADACEL) VACCINE Unknown Completed [facility] Influenza Virus Vaccine Recomb Quad IM, Preserv and ABX Free 18-64 YRS Unknown Completed [facility] Influenza Virus Vaccine Unknown Completed [facility] Influenza Virus Vaccine Unknown Completed [facility] Influenza Virus Vaccine Quad .5 mL IM 6+ MO (FLUZONE/FLULAVAL/F LUARIX) Unknown Completed [facility] Influenza Virus Vaccine Quad .5 mL IM 6+ MO (FLUZONE/FLULAVAL/F LUARIX) Unknown Completed [facility] TDAP (ADACEL) VACCINE Unknown Completed [facility] Influenza Virus Vaccine Recomb Quad IM, Preserv and ABX Free 18-64 YRS Unknown Completed [facility] Influenza Virus Vaccine Unknown Completed [facility] Influenza Virus Vaccine Unknown Completed [facility] Influenza Virus Vaccine Quad .5 mL IM 6+ MO (FLUZONE/FLULAVAL/F LUARIX) Unknown Completed [facility] Influenza Virus Vaccine Quad .5 mL IM 6+ MO (FLUZONE/FLULAVAL/F LUARIX) Unknown Completed [facility] TDAP (ADACEL) VACCINE Unknown Completed [facility] Influenza Virus Vaccine Recomb Quad IM, Preserv and ABX Free 18-64 YRS Unknown Completed [facility] Influenza Virus Vaccine Unknown Completed [facility] Influenza Virus Vaccine Unknown Completed [facility] Influenza Virus Vaccine Quad .5 mL IM 6+ MO (FLUZONE/FLULAVAL/F LUARIX) Unknown Completed [facility] Influenza Virus Vaccine Quad .5 mL IM 6+ MO (FLUZONE/FLULAVAL/F LUARIX) Unknown Completed [facility] TDAP (ADACEL) VACCINE Unknown Completed [facility] Influenza Virus Vaccine Recomb Quad IM, Preserv and ABX Free 18-64 YRS Unknown Completed [facility] Influenza Virus Vaccine Unknown Completed [facility] Influenza Virus Vaccine Unknown Completed [facility] Influenza Virus Vaccine Quad .5 mL IM 6+ MO (FLUZONE/FLULAVAL/F LUARIX) Unknown Completed [facility] Influenza Virus Vaccine Quad .5 mL IM 6+ MO (FLUZONE/FLULAVAL/F LUARIX) Unknown Completed [facility] TDAP (ADACEL) VACCINE Unknown Completed [facility] Influenza Virus Vaccine Recomb Quad IM, Preserv and ABX Free 18-64 YRS Unknown Completed [facility] Influenza Virus Vaccine Unknown Completed [facility] Influenza Virus Vaccine Unknown Completed [facility] Influenza Virus Vaccine Quad .5 mL IM 6+ MO (FLUZONE/FLULAVAL/F LUARIX) Unknown Completed [facility] Influenza Virus Vaccine Quad .5 mL IM 6+ MO (FLUZONE/FLULAVAL/F LUARIX) Unknown Completed [facility] TDAP (ADACEL) VACCINE Unknown Completed [facility] Influenza Virus Vaccine Recomb Quad IM, Preserv and ABX Free 18-64 YRS Unknown Completed [facility] Influenza Virus Vaccine Unknown Completed [facility] Influenza Virus Vaccine Unknown Completed [facility] Influenza Virus Vaccine Quad .5 mL IM 6+ MO (FLUZONE/FLULAVAL/F LUARIX) Unknown Completed [facility] Influenza Virus Vaccine Quad .5 mL IM 6+ MO (FLUZONE/FLULAVAL/F LUARIX) Unknown Completed [facility] TDAP (ADACEL) VACCINE Unknown Completed [facility] Influenza Virus Vaccine Recomb Quad IM, Preserv and ABX Free 18-64 YRS Unknown Completed [facility] Influenza Virus Vaccine Unknown Completed [facility] Influenza Virus Vaccine Unknown Completed [facility] Influenza Virus Vaccine Quad .5 mL IM 6+ MO (FLUZONE/FLULAVAL/F LUARIX) Unknown Completed [facility] Influenza Virus Vaccine Quad .5 mL IM 6+ MO (FLUZONE/FLULAVAL/F LUARIX) Unknown Completed [facility] TDAP (ADACEL) VACCINE Unknown Completed [facility] Influenza Virus Vaccine Recomb Quad IM, Preserv and ABX Free 18-64 YRS Unknown Completed [facility] Influenza Virus Vaccine Unknown Completed [facility] Influenza Virus Vaccine Unknown Completed [facility] Influenza Virus Vaccine Quad .5 mL IM 6+ MO (FLUZONE/FLULAVAL/F LUARIX) Unknown Completed [facility] Influenza Virus Vaccine Quad .5 mL IM 6+ MO (FLUZONE/FLULAVAL/F LUARIX) Unknown Completed [facility] TDAP (ADACEL) VACCINE Unknown Completed [facility] Influenza Virus Vaccine Recomb Quad IM, Preserv and ABX Free 18-64 YRS Unknown Completed [facility] Influenza Virus Vaccine Unknown Completed [facility] Influenza Virus Vaccine Unknown Completed [facility] Influenza Virus Vaccine Quad .5 mL IM 6+ MO (FLUZONE/FLULAVAL/F LUARIX) Unknown Completed [facility] Influenza Virus Vaccine Quad .5 mL IM 6+ MO (FLUZONE/FLULAVAL/F LUARIX) Unknown Completed [facility] TDAP (ADACEL) VACCINE Unknown Completed [facility] Influenza Virus Vaccine Recomb Quad IM, Preserv and ABX Free 18-64 YRS Unknown Completed [facility] Influenza Virus Vaccine Unknown Completed [facility] Influenza Virus Vaccine Unknown Completed [facility] Influenza Virus Vaccine Quad .5 mL IM 6+ MO (FLUZONE/FLULAVAL/F LUARIX) Unknown Completed [facility] Influenza Virus Vaccine Quad .5 mL IM 6+ MO (FLUZONE/FLULAVAL/F LUARIX) Unknown Completed [facility] TDAP (ADACEL) VACCINE Unknown Completed [facility] Influenza Virus Vaccine Recomb Quad IM, Preserv and ABX Free 18-64 YRS Unknown Completed [facility] Influenza Virus Vaccine Unknown Completed [facility] Influenza Virus Vaccine Unknown Completed [facility] Influenza Virus Vaccine Quad .5 mL IM 6+ MO (FLUZONE/FLULAVAL/F LUARIX) Unknown Completed [facility] Influenza Virus Vaccine Quad .5 mL IM 6+ MO (FLUZONE/FLULAVAL/F LUARIX) Unknown Completed [facility] TDAP (ADACEL) VACCINE Unknown Completed [facility] Influenza Virus Vaccine Recomb Quad IM, Preserv and ABX Free 18-64 YRS Unknown Completed [facility] Influenza Virus Vaccine Unknown Completed [facility] Influenza Virus Vaccine Unknown Completed [facility] Influenza Virus Vaccine Quad .5 mL IM 6+ MO (FLUZONE/FLULAVAL/F LUARIX) Unknown Completed [facility] Influenza Virus Vaccine Quad .5 mL IM 6+ MO (FLUZONE/FLULAVAL/F LUARIX) Unknown Completed [facility] TDAP (ADACEL) VACCINE Unknown Completed [facility] Influenza Virus Vaccine Recomb Quad IM, Preserv and ABX Free 18-64 YRS Unknown Completed [facility] Influenza Virus Vaccine Unknown Completed [facility] Influenza Virus Vaccine Unknown Completed [facility] Influenza Virus Vaccine Quad .5 mL IM 6+ MO (FLUZONE/FLULAVAL/F LUARIX) Unknown Completed [facility] Influenza Virus Vaccine Quad .5 mL IM 6+ MO (FLUZONE/FLULAVAL/F LUARIX) Unknown Completed [facility] TDAP (ADACEL) VACCINE Unknown Completed [facility] Influenza Virus Vaccine Recomb Quad IM, Preserv and ABX Free 18-64 YRS Unknown Completed [facility] Influenza Virus Vaccine Unknown Completed [facility] Influenza Virus Vaccine Unknown Completed [facility] Influenza Virus Vaccine Quad .5 mL IM 6+ MO (FLUZONE/FLULAVAL/F LUARIX) Unknown Completed [facility] Influenza Virus Vaccine Quad .5 mL IM 6+ MO (FLUZONE/FLULAVAL/F LUARIX) Unknown Completed [facility] TDAP (ADACEL) VACCINE Unknown Completed [facility] Influenza Virus Vaccine Recomb Quad IM, Preserv and ABX Free 18-64 YRS Unknown Completed [facility] Influenza Virus Vaccine Unknown Completed [facility] Influenza Virus Vaccine Unknown Completed [facility] Influenza Virus Vaccine Quad .5 mL IM 6+ MO (FLUZONE/FLULAVAL/F LUARIX) Unknown Completed [facility] Influenza Virus Vaccine Quad .5 mL IM 6+ MO (FLUZONE/FLULAVAL/F LUARIX) Unknown Completed [facility] TDAP (ADACEL) VACCINE Unknown Completed [facility] Influenza Virus Vaccine Recomb Quad IM, Preserv and ABX Free 18-64 YRS Unknown Completed [facility] Influenza Virus Vaccine Unknown Completed [facility] Influenza Virus Vaccine Unknown Completed [facility] Influenza Virus Vaccine Quad .5 mL IM 6+ MO (FLUZONE/FLULAVAL/F LUARIX) Unknown Completed [facility] Influenza Virus Vaccine Quad .5 mL IM 6+ MO (FLUZONE/FLULAVAL/F LUARIX) Unknown Completed [facility] TDAP (ADACEL) VACCINE Unknown Completed [facility] Influenza Virus Vaccine Recomb Quad IM, Preserv and ABX Free 18-64 YRS Unknown Completed [facility] Influenza Virus Vaccine Unknown Completed [facility] Influenza Virus Vaccine Quad .5 mL IM 6+ MO (FLUZONE/FLULAVAL/F LUARIX) Unknown Completed [facility] TDAP (ADACEL) VACCINE Unknown Completed [facility] Influenza Virus Vaccine Recomb Quad IM, Preserv and ABX Free 18-64 YRS Unknown Completed [facility] Influenza Virus Vaccine Unknown Completed [facility] Influenza Virus Vaccine Quad .5 mL IM 6+ MO (FLUZONE/FLULAVAL/F LUARIX) Unknown Completed [facility] TDAP (ADACEL) VACCINE Unknown Completed [facility] Influenza Virus Vaccine Recomb Quad IM, Preserv and ABX Free 18-64 YRS Unknown Completed [facility] Influenza Virus Vaccine Unknown Completed [facility] Influenza Virus Vaccine Quad .5 mL IM 6+ MO (FLUZONE/FLULAVAL/F LUARIX) Unknown Completed [facility] TDAP (ADACEL) VACCINE Unknown Completed [facility] Influenza Virus Vaccine Recomb Quad IM, Preserv and ABX Free 18-64 YRS Unknown Completed [facility] Influenza Virus Vaccine Unknown Completed [facility] Influenza Virus Vaccine Quad .5 mL IM 6+ MO (FLUZONE/FLULAVAL/F LUARIX) Unknown Completed [facility] TDAP (ADACEL) VACCINE Unknown Completed [facility] Influenza Virus Vaccine Recomb Quad IM, Preserv and ABX Free 18-64 YRS Unknown Completed [facility] Influenza Virus Vaccine Unknown Completed [facility] Influenza Virus Vaccine Quad .5 mL IM 6+ MO (FLUZONE/FLULAVAL/F LUARIX) Unknown Completed [facility] TDAP (ADACEL) VACCINE Unknown Completed [facility] Influenza Virus Vaccine Recomb Quad IM, Preserv and ABX Free 18-64 YRS Unknown Completed [facility] Influenza Virus Vaccine Unknown Completed [facility] Influenza Virus Vaccine Quad .5 mL IM 6+ MO (FLUZONE/FLULAVAL/F LUARIX) Unknown Completed [facility] TDAP (ADACEL) VACCINE Unknown Completed [facility] Influenza Virus Vaccine Recomb Quad IM, Preserv and ABX Free 18-64 YRS Unknown Completed [facility] Influenza Virus Vaccine Unknown Completed [facility] Influenza Virus Vaccine Quad .5 mL IM 6+ MO (FLUZONE/FLULAVAL/F LUARIX) Unknown Completed [facility] TDAP (ADACEL) VACCINE Unknown Completed [facility] Influenza Virus Vaccine Recomb Quad IM, Preserv and ABX Free 18-64 YRS Unknown Completed [facility] Influenza Virus Vaccine Unknown Completed [facility] Influenza Virus Vaccine Quad .5 mL IM 6+ MO (FLUZONE/FLULAVAL/F LUARIX) Unknown Completed [facility] TDAP (ADACEL) VACCINE Unknown Completed [facility] Influenza Virus Vaccine Recomb Quad IM, Preserv and ABX Free 18-64 YRS Unknown Completed [facility] Influenza Virus Vaccine Unknown Completed [facility] Influenza Virus Vaccine Quad .5 mL IM 6+ MO (FLUZONE/FLULAVAL/F LUARIX) Unknown Completed [facility] TDAP (ADACEL) VACCINE Unknown Completed [facility] Influenza Virus Vaccine Recomb Quad IM, Preserv and ABX Free 18-64 YRS Unknown Completed [facility] Influenza Virus Vaccine Unknown Completed [facility] Influenza Virus Vaccine Quad .5 mL IM 6+ MO (FLUZONE/FLULAVAL/F LUARIX) Unknown Completed [facility] TDAP (ADACEL) VACCINE Unknown Completed [facility] Influenza Virus Vaccine Recomb Quad IM, Preserv and ABX Free 18-64 YRS Unknown Completed [facility] Influenza Virus Vaccine Unknown Completed [facility] Influenza Virus Vaccine Quad .5 mL IM 6+ MO (FLUZONE/FLULAVAL/F LUARIX) Unknown Completed [facility] TDAP (ADACEL) VACCINE Unknown Completed [facility] Influenza Virus Vaccine Recomb Quad IM, Preserv and ABX Free 18-64 YRS Unknown Completed [facility] Influenza Virus Vaccine Unknown Completed [facility] Influenza Virus Vaccine Quad .5 mL IM 6+ MO (FLUZONE/FLULAVAL/F LUARIX) Unknown Completed [facility] TDAP (ADACEL) VACCINE Unknown Completed [facility] Influenza Virus Vaccine Recomb Quad IM, Preserv and ABX Free 18-64 YRS Unknown Completed [facility] Influenza Virus Vaccine Unknown Completed [facility] Influenza Virus Vaccine Quad .5 mL IM 6+ MO (FLUZONE/FLULAVAL/F LUARIX) Unknown Completed [facility] TDAP (ADACEL) VACCINE Unknown Completed [facility] Influenza Virus Vaccine Recomb Quad IM, Preserv and ABX Free 18-64 YRS Unknown Completed [facility] Influenza Virus Vaccine Unknown Completed [facility] Influenza Virus Vaccine Quad .5 mL IM 6+ MO (FLUZONE/FLULAVAL/F LUARIX) Unknown Completed [facility] TDAP (ADACEL) VACCINE Unknown Completed [facility] Influenza Virus Vaccine Recomb Quad IM, Preserv and ABX Free 18-64 YRS Unknown Completed [facility] Influenza Virus Vaccine Unknown Completed [facility] Influenza Virus Vaccine Quad .5 mL IM 6+ MO (FLUZONE/FLULAVAL/F LUARIX) Unknown Completed [facility] TDAP (ADACEL) VACCINE Unknown Completed [facility] Influenza Virus Vaccine Recomb Quad IM, Preserv and ABX Free 18-64 YRS Unknown Completed [facility] Influenza Virus Vaccine Unknown Completed [facility] Influenza Virus Vaccine Quad .5 mL IM 6+ MO (FLUZONE/FLULAVAL/F LUARIX) Unknown Completed [facility] TDAP (ADACEL) VACCINE Unknown Completed [facility] Influenza Virus Vaccine Recomb Quad IM, Preserv and ABX Free 18-64 YRS Unknown Completed [facility] Influenza Virus Vaccine Unknown Completed [facility] Influenza Virus Vaccine Quad .5 mL IM 6+ MO (FLUZONE/FLULAVAL/F LUARIX) Unknown Completed [facility] TDAP (ADACEL) VACCINE Unknown Completed [facility] Influenza Virus Vaccine Recomb Quad IM, Preserv and ABX Free 18-64 YRS Unknown Completed [facility] Influenza Virus Vaccine Unknown Completed [facility] Influenza Virus Vaccine Quad .5 mL IM 6+ MO (FLUZONE/FLULAVAL/F LUARIX) Unknown Completed [facility] TDAP (ADACEL) VACCINE Unknown Completed [facility] Influenza Virus Vaccine Recomb Quad IM, Preserv and ABX Free 18-64 YRS Unknown Completed [facility] Influenza Virus Vaccine Unknown Completed [facility] Influenza Virus Vaccine Quad .5 mL IM 6+ MO (FLUZONE/FLULAVAL/F LUARIX) Unknown Completed [facility] TDAP (ADACEL) VACCINE Unknown Completed [facility] Influenza Virus Vaccine Recomb Quad IM, Preserv and ABX Free 18-64 YRS Unknown Completed [facility] Influenza Virus Vaccine Unknown Completed [facility] Influenza Virus Vaccine Quad .5 mL IM 6+ MO (FLUZONE/FLULAVAL/F LUARIX) Unknown Completed [facility] TDAP (ADACEL) VACCINE Unknown Completed [facility] Influenza Virus Vaccine Recomb Quad IM, Preserv and ABX Free 18-64 YRS Unknown Completed [facility] Influenza Virus Vaccine Unknown Completed [facility] Influenza Virus Vaccine Quad .5 mL IM 6+ MO (FLUZONE/FLULAVAL/F LUARIX) Unknown Completed [facility] TDAP (ADACEL) VACCINE Unknown Completed [facility] Influenza Virus Vaccine Recomb Quad IM, Preserv and ABX Free 18-64 YRS Unknown Completed [facility] Influenza Virus Vaccine Unknown Completed [facility] Influenza Virus Vaccine Quad .5 mL IM 6+ MO (FLUZONE/FLULAVAL/F LUARIX) Unknown Completed [facility] TDAP (ADACEL) VACCINE Unknown Completed [facility] Influenza Virus Vaccine Recomb Quad IM, Preserv and ABX Free 18-64 YRS Unknown Completed [facility] Influenza Virus Vaccine Unknown Completed [facility] Influenza Virus Vaccine Quad .5 mL IM 6+ MO (FLUZONE/FLULAVAL/F LUARIX) Unknown Completed [facility] TDAP (ADACEL) VACCINE Unknown Completed [facility] Influenza Virus Vaccine Recomb Quad IM, Preserv and ABX Free 18-64 YRS Unknown Completed [facility] Influenza Virus Vaccine Unknown Completed [facility] Influenza Virus Vaccine Quad .5 mL IM 6+ MO (FLUZONE/FLULAVAL/F LUARIX) Unknown Completed [facility] TDAP (ADACEL) VACCINE Unknown Completed [facility] Influenza Virus Vaccine Recomb Quad IM, Preserv and ABX Free 18-64 YRS Unknown Completed [facility] Influenza Virus Vaccine Unknown Completed [facility] Influenza Virus Vaccine Quad .5 mL IM 6+ MO (FLUZONE/FLULAVAL/F LUARIX) Unknown Completed [facility] TDAP (ADACEL) VACCINE Unknown Completed [facility] Influenza Virus Vaccine Recomb Quad IM, Preserv and ABX Free 18-64 YRS Unknown Completed [facility] Influenza Virus Vaccine Unknown Completed [facility] Influenza Virus Vaccine Quad .5 mL IM 6+ MO (FLUZONE/FLULAVAL/F LUARIX) Unknown Completed [facility] TDAP (ADACEL) VACCINE Unknown Completed [facility] Influenza Virus Vaccine Recomb Quad IM, Preserv and ABX Free 18-64 YRS Unknown Completed [facility] Influenza Virus Vaccine Unknown Completed [facility] Influenza Virus Vaccine Quad .5 mL IM 6+ MO (FLUZONE/FLULAVAL/F LUARIX) Unknown Completed [facility] TDAP (ADACEL) VACCINE Unknown Completed [facility] Influenza Virus Vaccine Recomb Quad IM, Preserv and ABX Free 18-64 YRS Unknown Completed [facility] Influenza Virus Vaccine Unknown Completed [facility] Influenza Virus Vaccine Quad .5 mL IM 6+ MO (FLUZONE/FLULAVAL/F LUARIX) Unknown Completed [facility] TDAP (ADACEL) VACCINE Unknown Completed [facility] Influenza Virus Vaccine Recomb Quad IM, Preserv and ABX Free 18-64 YRS Unknown Completed [facility] Influenza Virus Vaccine Unknown Completed [facility] Influenza Virus Vaccine Quad .5 mL IM 6+ MO (FLUZONE/FLULAVAL/F LUARIX) Unknown Completed [facility] TDAP (ADACEL) VACCINE Unknown Completed [facility] Influenza Virus Vaccine Recomb Quad IM, Preserv and ABX Free 18-64 YRS Unknown Completed [facility] Influenza Virus Vaccine Unknown Completed [facility] Influenza Virus Vaccine Quad .5 mL IM 6+ MO (FLUZONE/FLULAVAL/F LUARIX) Unknown Completed [facility] TDAP (ADACEL) VACCINE Unknown Completed [facility] Influenza Virus Vaccine Recomb Quad IM, Preserv and ABX Free 18-64 YRS Unknown Completed [facility] Influenza Virus Vaccine Unknown Completed [facility] Influenza Virus Vaccine Quad .5 mL IM 6+ MO (FLUZONE/FLULAVAL/F LUARIX) Unknown Completed [facility] TDAP (ADACEL) VACCINE Unknown Completed [facility] Influenza Virus Vaccine Recomb Quad IM, Preserv and ABX Free 18-64 YRS Unknown Completed [facility] Influenza Virus Vaccine Unknown Completed [facility] Influenza Virus Vaccine Quad .5 mL IM 6+ MO (FLUZONE/FLULAVAL/F LUARIX) Unknown Completed [facility] TDAP (ADACEL) VACCINE Unknown Completed [facility] Influenza Virus Vaccine Recomb Quad IM, Preserv and ABX Free 18-64 YRS Unknown Completed [facility] Influenza Virus Vaccine Unknown Completed [facility] Influenza Virus Vaccine Quad .5 mL IM 6+ MO (FLUZONE/FLULAVAL/F LUARIX) Unknown Completed [facility] TDAP (ADACEL) VACCINE Unknown Completed [facility] Influenza Virus Vaccine Recomb Quad IM, Preserv and ABX Free 18-64 YRS Unknown Completed [facility] Influenza Virus Vaccine Unknown Completed [facility] Influenza Virus Vaccine Quad .5 mL IM 6+ MO (FLUZONE/FLULAVAL/F LUARIX) Unknown Completed [facility] TDAP (ADACEL) VACCINE Unknown Completed [facility] Influenza Virus Vaccine Recomb Quad IM, Preserv and ABX Free 18-64 YRS Unknown Completed [facility] Influenza Virus Vaccine Unknown Completed [facility] Influenza Virus Vaccine Quad .5 mL IM 6+ MO (FLUZONE/FLULAVAL/F LUARIX) Unknown Completed [facility] TDAP (ADACEL) VACCINE Unknown Completed [facility] Influenza Virus Vaccine Recomb Quad IM, Preserv and ABX Free 18-64 YRS Unknown Completed [facility] Influenza Virus Vaccine Unknown Completed [facility] Influenza Virus Vaccine Quad .5 mL IM 6+ MO (FLUZONE/FLULAVAL/F LUARIX) Unknown Completed [facility] TDAP (ADACEL) VACCINE Unknown Completed [facility] Influenza Virus Vaccine Quad .5 mL IM 6+ MO (FLUZONE/FLULAVAL/F LUARIX) Unknown Completed [facility] TDAP (ADACEL) VACCINE Unknown Completed [facility] Influenza Virus Vaccine Quad .5 mL IM 6+ MO (FLUZONE/FLULAVAL/F LUARIX) Unknown Completed [facility] TDAP (ADACEL) VACCINE Unknown Completed [facility] Influenza Virus Vaccine Quad .5 mL IM 6+ MO (FLUZONE/FLULAVAL/F LUARIX) Unknown Completed [facility] TDAP (ADACEL) VACCINE Unknown Completed [facility] Influenza Virus Vaccine Quad .5 mL IM 6+ MO (FLUZONE/FLULAVAL/F LUARIX) Unknown Completed [facility] TDAP (ADACEL) VACCINE Unknown Completed [facility] Influenza Virus Vaccine Quad .5 mL IM 6+ MO (FLUZONE/FLULAVAL/F LUARIX) Unknown Completed [facility] TDAP (ADACEL) VACCINE Unknown Completed [facility] Influenza Virus Vaccine Quad .5 mL IM 6+ MO (FLUZONE/FLULAVAL/F LUARIX) Unknown Completed [facility] TDAP (ADACEL) VACCINE Unknown Completed [facility] Influenza Virus Vaccine Quad .5 mL IM 6+ MO (FLUZONE/FLULAVAL/F LUARIX) Unknown Completed [facility] TDAP (ADACEL) VACCINE Unknown Completed [facility] Influenza Virus Vaccine Quad .5 mL IM 6+ MO (FLUZONE/FLULAVAL/F LUARIX) Unknown Completed [facility] TDAP (ADACEL) VACCINE Unknown Completed [facility] Influenza Virus Vaccine Quad .5 mL IM 6+ MO (FLUZONE/FLULAVAL/F LUARIX) Unknown Completed [facility] TDAP (ADACEL) VACCINE Unknown Completed [facility] Influenza Virus Vaccine Recomb Quad IM, Preserv and ABX Free 18-64 YRS Unknown Completed [facility] Influenza Virus Vaccine Unknown Completed [facility] Influenza Virus Vaccine Unknown Completed [facility] Influenza Virus Vaccine Quad IM, Preserv and ABX Free 6 MO-64 YRS (FLUCELVAX) Unknown Completed [facility] Influenza Virus Vaccine Quad .5 mL IM 6+ MO (FLUZONE/FLULAVAL/F LUARIX) Unknown Completed [facility] Influenza Virus Vaccine Quad .5 mL IM 6+ MO (FLUZONE/FLULAVAL/F LUARIX) Unknown Completed [facility] Influenza Virus Vaccine Quad .5 mL IM 6+ MO (FLUZONE/FLULAVAL/F LUARIX) Unknown Completed [facility] TDAP (ADACEL) VACCINE Unknown Completed [facility] Influenza Virus Vaccine Recomb Quad IM, Preserv and ABX Free 18-64 YRS Unknown Completed [facility] Influenza Virus Vaccine Unknown Completed [facility] Influenza Virus Vaccine Unknown Completed [facility] Influenza Virus Vaccine Quad IM, Preserv and ABX Free 6 MO-64 YRS (FLUCELVAX) Unknown Completed [facility] Influenza Virus Vaccine Quad .5 mL IM 6+ MO (FLUZONE/FLULAVAL/F LUARIX) Unknown Completed [facility] Influenza Virus Vaccine Quad .5 mL IM 6+ MO (FLUZONE/FLULAVAL/F LUARIX) Unknown Completed [facility] Influenza Virus Vaccine Quad .5 mL IM 6+ MO (FLUZONE/FLULAVAL/F LUARIX) Unknown Completed [facility] TDAP (ADACEL) VACCINE Unknown Completed [facility] Influenza Virus Vaccine Recomb Quad IM, Preserv and ABX Free 18-64 YRS Unknown Completed [facility] Influenza Virus Vaccine Unknown Completed [facility] Influenza Virus Vaccine Unknown Completed [facility] Influenza Virus Vaccine Quad IM, Preserv and ABX Free 6 MO-64 YRS (FLUCELVAX) Unknown Completed [facility] Influenza Virus Vaccine Quad .5 mL IM 6+ MO (FLUZONE/FLULAVAL/F LUARIX) Unknown Completed [facility] Influenza Virus Vaccine Quad .5 mL IM 6+ MO (FLUZONE/FLULAVAL/F LUARIX) Unknown Completed [facility] Vital Signs Vital Name Observation Time Observation Value Comments S ource Systolic blood pressure 2023-05-19 17:24:00 129 mm[Hg] [facility] Diastolic blood pressure 2023-05-19 17:24:00 83 mm[Hg] [facility] Heart rate 2023-05-19 17:24:00 77 /min [facility] Respiratory rate 2023-05-19 17:24:00 15 /min [facility] Oxygen saturation in Arterial blood by Pulse oximetry 2023-05-19 17:24:00 100 /min [facility] Body temperature 2023-05-19 14:50:00 37.28 Irene [facility] Body height 2023-05-19 14:50:00 154.9 cm [facility] Body weight 2023-05-19 14:50:00 58.968 kg [facility] BMI 2023-05-19 14:50:00 24.56 kg/m2 [facility] Systolic blood pressure 2023-01-15 16:56:00 132 mm[Hg] [facility] Diastolic blood pressure 2023-01-15 16:56:00 91 mm[Hg] [facility] Heart rate 2023-01-15 16:56:00 67 /min [facility] Body temperature 2023-01-15 16:56:00 36.78 Irene [facility] Respiratory rate 2023-01-15 16:56:00 20 /min [facility] Oxygen saturation in Arterial blood by Pulse oximetry 2023-01-15 16:56:00 100 /min [facility] Body height 2023-01-12 09:05:00 154.9 cm [facility] Body weight 2023-01-12 09:05:00 58.968 kg [facility] BMI 2023-01-12 09:05:00 24.56 kg/m2 [facility] Systolic blood pressure 2022-11-21 21:40:00 122 mm[Hg] [facility] Diastolic blood pressure 2022-11-21 21:40:00 90 mm[Hg] [facility] Heart rate 2022-11-21 21:40:00 92 /min [facility] Respiratory rate 2022-11-21 21:40:00 16 /min [facility] Oxygen saturation in Arterial blood by Pulse oximetry 2022-11-21 21:40:00 99 /min [facility] Body temperature 2022-11-21 18:07:00 37.28 [facility] Body weight 2022-11-21 18:07:00 68.04 kg [facility] BMI 2022-11-21 18:07:00 28.34 kg/m2 [facility] Systolic blood pressure 2022-09-05 17:22:00 139 mm[Hg] [facility] Diastolic blood pressure 2022-09-05 17:22:00 91 mm[Hg] [facility] Heart rate 2022-09-05 17:22:00 120 /min [facility] Respiratory rate 2022-09-05 17:22:00 18 /min [facility] Oxygen saturation in Arterial blood by Pulse oximetry 2022-09-05 17:22:00 99 /min [facility] Body temperature 2022-09-05 13:43:00 37.11 [facility] Body weight 2022-09-05 13:43:00 68.04 kg [facility] BMI 2022-09-05 13:43:00 28.34 kg/m2 [facility] Systolic blood pressure 2022-08-01 00:49:00 138 mm[Hg] [facility] Diastolic blood pressure 2022-08-01 00:49:00 104 mm[Hg] [facility] Heart rate 2022-08-01 00:49:00 108 /min [facility] Respiratory rate 2022-08-01 00:49:00 18 /min [facility] Oxygen saturation in Arterial blood by Pulse oximetry 2022-08-01 00:49:00 99 /min [facility] Body temperature 2022-07-31 22:52:00 37.11 [facility] Body height 2022-07-31 22:52:00 154.9 cm [facility] 2022-07-31 22:52:00 68.04 kg [facility] BMI 2022-07-31 22:52:00 28.34 kg/m2 [facility] Systolic blood pressure 2022-07-15 15:32:00 130 mm[Hg] [facility] Diastolic blood pressure 2022-07-15 15:32:00 90 mm[Hg] [facility] Heart rate 2022-07-15 15:31:00 81 /min [facility] Body temperature 2022-07-15 15:31:00 36.94 Irene [facility] Respiratory rate 2022-07-15 15:31:00 16 /min [facility] Body weight 2022-07-15 15:31:00 68.493 kg [facility] BMI 2022-07-15 15:31:00 28.53 kg/m2 [facility] Oxygen saturation in Arterial blood by Pulse oximetry 2022-07-15 15:31:00 99 /min [facility] Systolic blood pressure 2022-06-23 15:26:00 111 mm[Hg] [facility] Diastolic blood pressure 2022-06-23 15:26:00 75 mm[Hg] [facility] Heart rate 2022-06-23 15:26:00 108 /min [facility] Body temperature 2022-06-23 15:26:00 36.83 Irene [facility] Respiratory rate 2022-06-23 15:26:00 18 /min [facility] Body height 2022-06-23 15:26:00 154.9 [facility] weight 2022-06-23 15:26:00 71.385 kg [facility] BMI 2022-06-23 15:26:00 29.74 kg/m2 [facility] Oxygen saturation in Arterial blood by Pulse oximetry 2022-06-23 15:26:00 99 /min [facility] Systolic blood pressure 2022-05-05 22:05:00 126 mm[Hg] [facility] Diastolic blood pressure 2022-05-05 22:05:00 75 mm[Hg] [facility] Heart rate 2022-05-05 22:05:00 99 /min [facility] Respiratory rate 2022-05-05 22:05:00 16 /min [facility] Oxygen saturation in Arterial blood by Pulse oximetry 2022-05-05 22:05:00 99 /min [facility] Body temperature 2022-05-05 18:24:00 37.11 Irene [facility] Body height 2022-05-05 18:24:00 154.9 cm [facility] Body weight 2022-05-05 18:24:00 54.432 kg [facility] BMI 2022-05-05 18:24:00 22.67 kg/m2 [facility] Systolic blood pressure 2022-04-26 14:28:00 135 mm[Hg] [facility] Diastolic blood pressure 2022-04-26 14:28:00 95 mm[Hg] [facility] Heart rate 2022-04-26 14:28:00 93 /min [facility] Body temperature 2022-04-26 14:28:00 36.89 Irene [facility] Respiratory rate 2022-04-26 14:28:00 18 /min [facility] Body height 2022-04-26 14:28:00 154.9 cm [facility] Body weight 2022-04-26 14:28:00 54.432 kg [facility] BMI 2022-04-26 14:28:00 22.67 kg/m2 [facility] Oxygen saturation in Arterial blood by Pulse oximetry 2022-04-26 14:28:00 100 /min [facility] Systolic blood pressure 2022-04-26 00:21:00 151 mm[Hg] [facility] Diastolic blood pressure 2022-04-26 00:21:00 98 mm[Hg] [facility] Heart rate 2022-04-26 00:21:00 98 /min [facility] Body temperature 2022-04-26 00:21:00 36.72 Irene [facility] Respiratory rate 2022-04-26 00:21:00 18 /min [facility] Body height 2022-04-26 00:21:00 154.9 cm [facility] Body weight 2022-04-26 00:21:00 54.432 kg [facility] BMI 2022-04-26 00:21:00 22.67 kg/m2 [facility] Oxygen saturation in Arterial blood by Pulse oximetry 2022-04-26 00:21:00 100 /min [facility] Systolic blood pressure 2022-04-09 14:39:00 122 mm[Hg] [facility] Diastolic blood pressure 2022-04-09 14:39:00 84 mm[Hg] [facility] Heart rate 2022-04-09 14:39:00 96 /min [facility] Body height 2022-04-09 14:39:00 154.9 cm [facility] Body weight 2022-04-09 14:39:00 60.328 kg [facility] BMI 2022-04-09 14:39:00 25.13 kg/m2 [facility] Oxygen saturation in Arterial blood by Pulse oximetry 2022-04-09 14:39:00 98 /min [facility] Systolic blood pressure 2022-04-07 22:43:36 131 mm[Hg] [facility] Diastolic blood pressure 2022-04-07 22:43:36 83 mm[Hg] [facility] Heart rate 2022-04-07 22:43:36 113 /min [facility] Respiratory rate 2022-04-07 22:43:36 18 /min [facility] Oxygen saturation in Arterial blood by Pulse oximetry 2022-04-07 22:43:36 97 /min [facility] Body temperature 2022-04-07 19:41:00 37.17 Irene [facility] Body height 2022-04-07 19:41:00 154.9 cm [facility] Body weight 2022-04-07 19:41:00 60.328 kg [facility] BMI 2022-04-07 19:41:00 25.13 kg/m2 [facility] Systolic blood pressure 2022-03-24 19:00:00 125 mm[Hg] [facility] Diastolic blood pressure 2022-03-24 19:00:00 86 mm[Hg] [facility] Heart rate 2022-03-24 19:00:00 93 /min [facility] Respiratory rate 2022-03-24 19:00:00 17 /min [facility] Oxygen saturation in Arterial blood by Pulse oximetry 2022-03-24 19:00:00 97 /min [facility] Body temperature 2022-03-24 13:33:00 36.78 Irene [facility] Systolic blood pressure 2022-03-15 19:23:00 128 mm[Hg] [facility] Diastolic blood pressure 2022-03-15 19:23:00 89 mm[Hg] [facility] Heart rate 2022-03-15 19:23:00 104 /min [facility] Body weight 2022-03-15 19:23:00 60.328 kg [facility] BMI 2022-03-15 19:23:00 25.13 kg/m2 [facility] Oxygen saturation in Arterial blood by Pulse oximetry 2022-03-15 19:23:00 98 /min [facility] Systolic blood pressure 2022-03-15 15:02:00 115 mm[Hg] [facility] Diastolic blood pressure 2022-03-15 15:02:00 70 mm[Hg] [facility] Heart rate 2022-03-15 15:02:00 85 /min [facility] Respiratory rate 2022-03-15 15:02:00 20 /min [facility] Oxygen saturation in Arterial blood by Pulse oximetry 2022-03-15 15:02:00 99 /min [facility] Body temperature 2022-03-15 13:38:00 36.94 Irene [facility] Body height 2022-03-15 13:38:00 154.9 cm [facility] Body weight 2022-03-15 13:38:00 54.432 kg [facility] BMI 2022-03-15 13:38:00 22.67 kg/m2 [facility] Systolic blood pressure 2022-03-11 16:30:00 124 mm[Hg] [facility] Diastolic blood pressure 2022-03-11 16:30:00 88 mm[Hg] [facility] Heart rate 2022-03-11 16:30:00 93 /min [facility] Body temperature 2022-03-11 16:30:00 36.67 Irene [facility] Respiratory rate 2022-03-11 16:30:00 14 /min [facility] Oxygen saturation in Arterial blood by Pulse oximetry 2022-03-11 16:30:00 100 /min [facility] Body height 2022-03-11 14:19:00 154.9 cm [facility] Body weight 2022-03-11 14:19:00 58.968 kg [facility] BMI 2022-03-11 14:19:00 24.56 kg/m2 [facility] Systolic blood pressure 2022-02-27 14:14:00 140 mm[Hg] [facility] Diastolic blood pressure 2022-02-27 14:14:00 90 mm[Hg] [facility] Heart rate 2022-02-27 14:14:00 103 /min [facility] Body height 2022-02-27 14:14:00 154.9 cm [facility] Body weight 2022-02-27 14:14:00 59.194 kg [facility] BMI 2022-02-27 14:14:00 24.66 kg/m2 [facility] Oxygen saturation in Arterial blood by Pulse oximetry 2022-02-27 14:14:00 100 /min [facility] Systolic blood pressure 2022-02-27 13:19:00 131 mm[Hg] [facility] Diastolic blood pressure 2022-02-27 13:19:00 86 mm[Hg] [facility] Heart rate 2022-02-27 13:19:00 102 /min [facility] Body temperature 2022-02-27 13:19:00 36.33 Irene [facility] Body height 2022-02-27 13:19:00 154.9 cm [facility] Body weight 2022-02-27 13:19:00 58.968 kg [facility] BMI 2022-02-27 13:19:00 24.56 kg/m2 [facility] Oxygen saturation in Arterial blood by Pulse oximetry 2022-02-27 13:19:00 99 /min [facility] Systolic blood pressure 2022-02-21 08:06:00 135 mm[Hg] [facility] Diastolic blood pressure 2022-02-21 08:06:00 97 mm[Hg] [facility] Heart rate 2022-02-21 08:06:00 98 /min [facility] Respiratory rate 2022-02-21 08:06:00 16 /min [facility] Oxygen saturation in Arterial blood by Pulse oximetry 2022-02-21 08:06:00 97 /min [facility] Body temperature 2022-02-21 06:16:00 36.94 Irene [facility] Body height 2022-02-21 06:16:00 154.9 cm [facility] Body weight 2022-02-21 06:16:00 60.963 kg [facility] BMI 2022-02-21 06:16:00 25.39 kg/m2 [facility] Systolic blood pressure 2022 20:08:00 136 mm[Hg] [facility] Diastolic blood pressure 2022 20:08:00 96 mm[Hg] [facility] Heart rate 2022 20:08:00 100 /min [facility] Respiratory rate 2022 20:08:00 20 /min [facility] Oxygen saturation in Arterial blood by Pulse oximetry 2022 20:08:00 98 /min [facility] Body temperature 2022 16:56:00 37.06 Irene [facility] Body weight 2022 16:56:00 54.432 kg Univ [facility] BMI 2022 16:56:00 22.67 kg/m2 [facility] Systolic blood pressure 2022-02-05 14:31:00 128 mm[Hg] [facility] Diastolic blood pressure 2022-02-05 14:31:00 84 mm[Hg] [facility] Heart rate 2022-02-05 14:31:00 86 /min Un[facility] Body temperature 2022-02-05 14:31:00 37.89 Irene [facility] Respiratory rate 2022-02-05 14:31:00 18 /min [facility] Body height 2022-02-05 14:31:00 154.9 cm [facility] Body weight 2022-02-05 14:31:00 54.432 kg [facility] BMI 2022-02-05 14:31:00 22.67 kg/m2 [facility] Oxygen saturation in Arterial blood by Pulse oximetry 2022-02-05 14:31:00 98 /min [facility] Systolic blood pressure 2022-01-18 14:50:00 144 mm[Hg] [facility] Diastolic blood pressure 2022-01-18 14:50:00 92 mm[Hg] [facility] Heart rate 2022-01-18 14:50:00 94 /min [facility] Respiratory rate 2022-01-18 14:50:00 20 /min [facility] Oxygen saturation in Arterial blood by Pulse oximetry 2022-01-18 14:50:00 99 /min [facility] Body weight 2022-01-18 10:18:00 54.432 kg [facility] BMI 2022-01-18 10:18:00 22.67 kg/m2 [facility] Body temperature 2022-01-18 10:15:00 36.72 Irene [facility] Systolic blood pressure 2022-01-15 15:48:26 125 mm[Hg] [facility] Diastolic blood pressure 2022-01-15 15:48:26 85 mm[Hg] [facility] Heart rate 2022-01-15 15:48:26 95 /min [facility] Respiratory rate 2022-01-15 15:48:26 18 /min [facility] Oxygen saturation in Arterial blood by Pulse oximetry 2022-01-15 15:48:26 98 /min [facility] Body temperature 2022-01-15 13:32:00 37.11 [facility] Body height 2022-01-15 13:32:00 154.9 cm [facility] Body weight 2022-01-15 13:32:00 54.432 kg [facility] BMI 2022-01-15 13:32:00 22.67 kg/m2 [facility] Systolic blood pressure 2022-01-09 00:37:11 127 mm[Hg] [facility] Diastolic blood pressure 2022-01-09 00:37:11 90 mm[Hg] [facility] Heart rate 2022-01-09 00:37:11 94 /min [facility] Body temperature 2022-01-09 00:37:11 37.11 [facility] Respiratory rate 2022-01-09 00:37:11 16 /min [facility] Oxygen saturation in Arterial blood by Pulse oximetry 2022-01-09 00:37:11 97 /min [facility] Body height 2022-01-08 23:03:00 154.9 cm [facility] Body weight 2022-01-08 23:03:00 58.06 kg [facility] BMI 2022-01-08 23:03:00 24.19 kg/m2 [facility] Systolic blood pressure 2021-12-12 18:00:00 126 mm[Hg] [facility] Diastolic blood pressure 2021-12-12 18:00:00 87 mm[Hg] [facility] Heart rate 2021-12-12 18:00:00 86 /min [facility] Body temperature 2021-12-12 18:00:00 36.89 Irene [facility] Respiratory rate 2021-12-12 18:00:00 18 /min [facility] Body height 2021-12-12 18:00:00 154.9 cm [facility] Body weight 2021-12-12 18:00:00 57.153 kg [facility] BMI 2021-12-12 18:00:00 23.81 kg/m2 [facility] Systolic blood pressure 2023-01-14 16:32:00 138 mm[Hg] [facility] Diastolic blood pressure 2023-01-14 16:32:00 84 mm[Hg] [facility] Heart rate 2023-01-14 16:32:00 67 /min [facility] Body temperature 2023-01-14 16:32:00 36.5 Irene [facility] Respiratory rate 2023-01-14 16:32:00 16 /min [facility] Oxygen saturation in Arterial blood by Pulse oximetry 2023-01-14 16:32:00 99 /min [facility] Body height 2023-01-12 09:05:00 154.9 cm [facility] Body weight 2023-01-12 09:05:00 58.968 kg [facility] BMI 2023-01-12 09:05:00 24.56 kg/m2 [facility] Procedures Procedure Date / Time Performed Performing Clinician Source COMP. METABOLIC PANEL (68087) 2023-05-19 17:22:00 Tod Sellers [facility] CT ABDOMEN PELVIS W CONTRAST 2023-05-19 15:59:54 Tod Sellers [facility] LIPASE 2023-05-19 15:43:00 Tod Sellers Un [facility] CBC WITH DIFF 2023-05-19 15:43:00 [facility]IN[facility] 2023-05-19 15:32:00 Tod Sellers Un [facility] POCT TEST 2023-05-19 15:31:00 Anna Marie Sellers [facility] CONSENT/REFUSAL FOR DIAGNOSIS AND TREATMENT 2023-05-19 14:37:15 Doctor Unassigned, Jay [facility] PHOSPHORUS 2023-01-15 08:15:00 Benita Rockwell Un [facility] MAGNESIUM 2023-01-15 08:15:00 Benita Rockwell [facility] BASIC METABOLIC PANEL (NA, K, CL, CO2, GLUCOSE, BUN, CREATININE, CA) 2023-01-15 08:15:00 Benita Rockwell [facility] CBC WITH DIFF 2023-01-15 08:15:[address] [facility] PROTHROMBIN TIME / INR 2023-01-15 08:15:00 Luis Rockwell [facility] MAGNESIUM 2023-01-14 10:14:00 Benita Rockwell [facility] PHOSPHORUS 2023-01-14 10:14:00 Benita Rockwell [facility] BASIC METABOLIC PANEL (NA, K, CL, CO2, GLUCOSE, BUN, CREATININE, CA) 2023-01-14 10:14:00 Benita Rockwell [facility] CBC WITH DIFF 2023-01-14 10:14:[address] [facility] PHOSPHORUS 2023-01-14 10:14:00 Benita Rockwell [facility] MAGNESIUM 2023-01-14 10:14:00 Benita Rockwell [facility] BASIC METABOLIC PANEL (NA, K, CL, CO2, GLUCOSE, BUN, CREATININE, CA) 2023-01-14 10:14:00 Benita Rockwell [facility] CBC WITH DIFF 2023-01-14 10:14:[address] [facility] CBC WITH DIFF 2023-01-13 10:45:00 Rodolfo Riggins [facility] BASIC METABOLIC PANEL (NA, K, CL, CO2, GLUCOSE, BUN, CREATININE, CA) 2023-01-13 10:45:00 Vaishnavi, [facility] MAGNESIUM 2023-01-13 10:45:00 Vaishnavi, [facility] PHOSPHORUS 2023-01-13 10:45:00 Vaishnavi, [facility] HEPATIC FUNCTION PANEL ([id number]) (ALB,T.PRO,BILI T,BU/BC,ALT,AST,ALK PHOS) 2023-01-13 10:45:00 Vaishnavi, [facility] PHOSPHORUS 2023-01-13 10:45:00 Vaishnavi, [facility] MAGNESIUM 2023-01-13 10:45:00 Vaishnavi, [facility] HEPATIC FUNCTION PANEL ([id number]) (ALB,T.PRO,BILI T,BU/BC,ALT,AST,ALK PHOS) 2023-01-13 10:45:00 Vaishnavi, [facility] BASIC METABOLIC PANEL (NA, K, CL, CO2, GLUCOSE, BUN, CREATININE, CA) 2023-01-13 10:45:00 Vaishnavi, [facility] CBC WITH DIFF 2023-01-13 10:45:00 VaishnaviRodolfo dailey [facility] GLUCOSE BODY FLUID 2023-01-12 20:44:00 VaishnaviRodolfo dailey [facility] BODY FLUID MANUAL DIFF 2023-01-12 20:44:00 Clayton Riggins [facility] T.PROTEIN BODY FLUID 2023-01-12 20:44:00 Vaishnavi, [place] [facility] ASPIRATE OR ABSCESS CULTURE(AEROBIC/ANAEROBIC ) 2023-01-12 20:44:00 Vaishnavi, [facility] TOTAL BODY FLUID 2023-01-12 20:44:00 Vaishnavi, [facility] GLUCOSE BODY FLUID 2023-01-12 20:44:00 Va[facility]Rodolfo [facility] T.PROTEIN BODY FLUID 2023-01-12 20:44:00 Vaishnavi [facility] BODY FLUID DIRECT COUNT 2023-01-12 20:44:00 Vaishnavi K ent [facility] ASPIRATE OR ABSCESS CULTURE(AEROBIC/ANAEROBIC ) 2023-01-12 20:44:00 Rodolfo Riggins [facility] LDH TOTAL BODY FLUID 2023-01-12 20:44:00 Rodolfo Riggins [facility] PROTHROMBIN TIME / INR 2023-01-12 08:13:00 VaishnaviClayton wade [facility] PROTHROMBIN TIME / INR 2023-01-12 08:13:00 VaishnaivClayton wade nt [facility] COMP. METABOLIC PANEL ([id number]) 2023-01-12 03:49:00 Ciera García [facility] COMP. METABOLIC PANEL ([id number]) 2023-01-12 03:49:00 Ciera García [facility] CT ABDOMEN PELVIS W CONTRAST 2023-01-12 03:32:06 Ciera García [facility] CT ABDOMEN PELVIS W CONTRAST 2023-01-12 03:32:06 Ciera García [facility] POCT TEST 2023-01-12 03:02:00 Jessica García [facility] POCT TEST 2023-01-12 03:02:00 Jessica García [facility] URINALYSIS 2023-01-12 02:56:00 Kenneth García [facility] LIPASE 2023-01-12 02:56:00 Kenneth García [facility] TOTAL BETA HCG ASSAY 2023-01-12 02:56:00 Ciera García [facility] CBC WITH DIFF 2023-01-12 02:56:00 Kenneth García Marie [facility] EXTRA TUBE ORANGE 2023-01-12 02:56:[address] [facility] EXTRA TUBE LAV 2023-01-12 02:56:00 Aroldo Siddiqui [facility] LIPASE 2023-01-12 02:56:00 Kenneth García Marie [facility] TOTAL BETA HCG ASSAY 2023-01-12 02:56:00 Ciera García [facility] CBC WITH DIFF 2023-01-12 02:56:00 Kenneth García Marie [facility] URINALYSIS 2023-01-12 02:56:00 Kenneth García [facility] EXTRA TUBE LAV 2023-01-12 02:56:00 Aroldo Siddiqui [facility] EXTRA TUBE ORANGE 2023-01-12 02:56:[address] [facility] CONSENT/REFUSAL FOR DIAGNOSIS AND TREATMENT 2023-01-12 01:46:10 Doctor Unassigned, Jay [facility] CONSENT/REFUSAL FOR DIAGNOSIS AND TREATMENT 2023-01-12 01:46:10 Doctor Unassigned, Jay [facility] ASSIGNMENT OF BENEFITS 2022-11-21 19:49:02 Docto r Unassigned, Jay [facility] ASSIGNMENT OF BENEFITS 2022-11-21 19:49:02 Docto r Unassigned, Jay [facility] CONSENT/REFUSAL FOR DIAGNOSIS AND TREATMENT 2022-11-21 18:03:25 Doctor Unassigned, Jay [facility] CONSENT/REFUSAL FOR DIAGNOSIS AND TREATMENT 2022-11-21 18:03:25 Doctor Unassigned, Jay [facility] EMERGENCY SERVICES AGREEMENTS AND AUTHORIZATIONS 2022-11-21 05:01:00 Doctor Unassigned, Jay [facility] CONSENT/REFUSAL FOR DIAGNOSIS AND TREATMENT 2022-09-05 13:42:02 Doctor Unassigned, Jay [facility] LIPASE 2022-07-31 23:13:00 [facility], [facility]UM 2022-07-31 23:13:00 Domenico Newell [facility] COMP. METABOLIC PANEL ([id number]) 2022-07-31 23:13:00 Manju Newell [facility] CBC WITH DIFF 2022-07-31 23:13:00 Manju Newell [facility] CONSENT/REFUSAL FOR DIAGNOSIS AND TREATMENT 2022-07-31 22:49:17 Doctor Unassigned, Jay [facility] XR ANKLE 3+ VW RIGHT 2022-07-15 16:00:00 Hi Kaur [facility] XR FOOT 3+ VW RIGHT 2022-07-15 16:00:00 Jenifer Kaur [facility] XR FOOT 3+ VW RIGHT 2022-07-15 16:00:00 Jenifer Kaur [facility] PATIENT FINANCIAL POLICY 2022-07-15 15:25:53 Doctor Unassigned, Jay [facility] POCT MOLECULAR STREP 2022-06-23 16:06:00 Unknown, Atte catherine [facility] ASSIGNMENT OF BENEFITS 2022-06-23 15:18:28 Docto r Unassigned, Jay [facility] COMP. METABOLIC PANEL ([id number]) 2022-05-05 19:14:00 Karon Norton [facility] CBC WITH DIFF 2022-05-05 19:14:00 Karon Norton [facility] POCT TEST 2022-05-05 19:00:00 Lou Norton [facility] URINALYSIS 2022-05-05 18:58:[facility] WO CONTRAST 2022-04-26 15:11:00 Zion Bridges [facility] COMP. METABOLIC PANEL ([id number]) 2022-04-26 14:49:00 Zion Bridges [facility] CBC WITH DIFF 2022-04-26 14:49:00 Zion Bridges [facility] URINALYSIS 2022-04-26 14:49:00 Zion Bridges [facility] POCT TEST 2022-04-26 14:45:00 Jonn Bridges [facility] CONSENT/REFUSAL FOR DIAGNOSIS AND TREATMENT 2022-04-26 14:22:29 Doctor Unassigned, Jay [facility] POCT TEST 2022-04-26 01:22:00 Jonn Bridges [facility] ASSIGNMENT OF BENEFITS 2022-04-26 00:54:02 Docto r Unassigned, Jay [facility] URINALYSIS 2022-04-26 00:45:00 Zion Bridges [facility] CONSENT/REFUSAL FOR DIAGNOSIS AND TREATMENT 2022-04-26 00:16:47 Doctor Unassigned, Jay [facility] BASIC METABOLIC PANEL (NA, K, CL, CO2, GLUCOSE, BUN, CREATININE, CA) 2022-04-07 22:35:00 Olamide Garvin [facility] CBC WITH DIFF 2022-04-07 22:35:00 Olamide Garvin [facility] URINALYSIS 2022-04-07 21:36:00 Olamide Garvin [facility] URINE DRUG (IMMUNOASSAY) - COMPREHENSIVE DRUG SCREEN W/O REFLEX 2022-04-07 21:36:00 Olamide Garvin [facility] CONSENT/REFUSAL FOR DIAGNOSIS AND TREATMENT 2022-04-07 19:29:15 Doctor Unassigned, Jay [facility] POCT TEST 2022-03-24 14:07:00 Kellie Duncan [facility] CONSENT/REFUSAL FOR DIAGNOSIS AND TREATMENT 2022-03-24 13:27:20 Doctor Unassigned, Jay [facility] CT ABDOMEN PELVIS WO CONTRAST 2022-03-15 14:09:04 Anna Gould [facility] URINALYSIS 2022-03-15 13:53:00 [facility] 2022-03-15 13:52:00 Kimberly Gould [facility] CONSENT/REFUSAL FOR DIAGNOSIS AND TREATMENT 2022-03-15 13:37:02 Doctor Unassigned, Jay [facility] POCT TEST 2022-03-11 14:59:00 Redd Viveros [facility] FLU VACC ([id number]), 6 MO-64 YRS, .5ML, IM, QUAD (FLUCELVAX) 2022-02-27 13:34:55 Vijay Martinez [facility] NOTICE OF PRIVACY PRACTICES 2022-02-21 06:06:30 Doctor Unassigned, Jay [facility] CONSENT/REFUSAL FOR DIAGNOSIS AND TREATMENT 2022-02-21 06:03:41 Doctor Unassigned, Jay [facility] XR ANKLE <3 VW RIGHT 2022 17:56:42 Buster Hamilton [facility] CT ABDOMEN PELVIS W CONTRAST 2022 17:44:17 Maggie Hamilton [facility] CT TRAUMA CERVICAL SPINE WO CONTRAST 2022 17:43:49 Maggie Hamilton [facility] POCT TEST 2022 17:27:00 Zoie Hamilton ra [facility] COMP. METABOLIC PANEL ([id number]) 2022 17:17:00 Maggie Hamilton [facility] CBC WITH DIFF 2022 17:17:[address] [facility] CONSENT/REFUSAL FOR DIAGNOSIS AND TREATMENT 2022 16:53:13 Doctor Unassigned, Jay [facility] US GALL BLADDER 2022-01-18 12:31:09 Bernardo Levy [facility] US PELVIS COMPLETE WITH TRANSVAGINAL 2022-01-18 12:21:13 Melvin Zhao [facility] CT ABDOMEN PELVIS W CONTRAST 2022-01-18 11:20:50 Melvin Zhao [facility] POCT TEST 2022-01-18 10:57:00 Jayy Kennedy [facility] COVID-19 (ID NOW RAPID TESTING) 2022-01-18 10:57:00 Jayy Kennedy [facility] URINALYSIS 2022-01-18 10:47:00 Jayy Kennedy [facility] LIPASE 2022-01-18 10:29:00 Jayy Kennedy [facility] TEST, SERUM 2022-01-18 10:29:00 Jayy Kennedy [facility] HEPATIC FUNCTION PANEL ([id number]) (ALB,T.PRO,BILI T,BU/BC,ALT,AST,ALK PHOS) 2022-01-18 10:29:00 Jayy Kennedy [facility] BASIC METABOLIC PANEL (NA, K, CL, CO2, GLUCOSE, BUN, CREATININE, CA) 2022-01-18 10:29:00 Jayy Kennedy [facility] CBC WITH DIFF 2022-01-18 10:29:00 Jayy Kennedy [facility] CONSENT/REFUSAL FOR DIAGNOSIS AND TREATMENT 2022-01-18 10:13:31 Doctor Unassigned, Jay [facility] CT HEAD WO CONTRAST 2022-01-15 15:22:29 Maura Samayoa [facility] TEST, SERUM 2022-01-15 14:36:00 Hudson Samayoa [facility] BASIC METABOLIC PANEL (NA, K, CL, CO2, GLUCOSE, BUN, CREATININE, CA) 2022-01-15 14:36:00 Maura Samayoa [facility] CBC WITH DIFF 2022-01-15 14:36:00 Maura Samayoa [facility] CONSENT/REFUSAL FOR DIAGNOSIS AND TREATMENT 2022-01-15 13:28:12 Doctor Unassigned, Jay [facility] XR CERVICAL SPINE 4 VW 2022-01-09 00:29[facility]16 [facility]W 2022-01-09 00:29:16 Gabriela, And res [facility] XR SPINE THORACIC 3 VW 2022-01-09 00:29:16 Kass[address] [facility] URINALYSIS 2022-01-08 23:50:00 Humberto Ochoa [facility] CONSENT/REFUSAL FOR DIAGNOSIS AND TREATMENT 2022-01-08 22:51:08 Doctor Unassigned, Jay [facility] GALV ONLY - VAGINAL PATHOGENS BY NUCLEIC ACID TESTING 2021-12-12 18:37:00 Prasanna Vargas [facility] URINE CULTURE 2021-12-12 18:32:00 Prasanna Vargas [facility] POCT TEST 2021-12-12 18:31:00 Prasanna Vargas [facility] POCT URINALYSIS W/O SPECIFIC GRAVITY 2021-12-12 18:31:00 Prasanna Vargas [facility] Encounters Start Date/Time End Date/Time Encounter Type Admission Type Attending [facility] Care Facility Care Department Encounter ID Source 2021-03-14 03:14:31 Emergency [facility] [id number] [facility] 2021-03-13 20:05:20 Emergency [facility] [id number] [facility] 2021-03-13 12:48:28 Emergency [facility] [id number] [facility] 2021-03-13 02:43:51 Emergency [facility] [id number] [facility] 2021-03-13 00:27:09 Emergency [facility] [id number] [facility] 2021-03-12 22:10:36 Emergency [facility] [id number] [facility] 2021-03-12 20:04:05 Emergency [facility] [id number] [facility] 2021-03-12 15:25:05 Emergency [facility] [id number] [facility] 2021-03-12 11:43:36 Emergency [facility] [id number] [facility] 2021-03-12 07:41:37 Emergency [facility] [id number] [facility] 2021-03-12 05:43:47 Emergency [facility] [id number] [facility] 2021-03-12 03:43:41 Emergency [facility] [id number] [facility] 2021-03-12 01:31:27 Emergency [facility] [id number] [facility] 2021-03-12 00:56:44 Emergency X [facility] [id number] [facility] 2021-03-12 00:56:31 Emergency [facility] [id number] [facility] 2021-03-11 17:47:02 Emergency [facility] [id number] [facility] 2021-03-11 16:27:15 Emergency [facility] [id number] [facility] 2021-03-11 12:00:58 Emergency [facility] [id number] [facility] 2021-03-11 10:33:59 Emergency [facility] [id number] [facility] 2021-03-11 01:36:52 Emergency [facility] [id number] [facility] 2021-03-10 23:35:34 Emergency [facility] [id number] [facility] 2021-03-10 19:06:16 Emergency [facility] [id number] [facility] 2021-03-10 12:39:47 Emergency [facility] [id number] [facility] 2021-03-10 06:54:04 Emergency [facility] [id number] [facility] 2021-03-09 13:25:44 Outpatient P [facility] [id number] [facility] 2021-03-09 13:08:01 Outpatient P [facility] [id number] [facility] 2021-03-09 12:37:25 Outpatient P [facility] [id number] [facility] 2021-03-09 11:51:20 Outpatient P [facility] [id number] [facility] 2023-12-08 14:51:46 2023-12-08 14:51:46 Outpatient [facility] STEFANY [id number] [facility] Gil 2023-09-12 00:00:00 2023-09-12 00:00:00 Outpatient Farzana FARRARPanda ROLDAN [facility] [id number] [facility] 2023-08-26 00:00:00 2023-08-26 00:00:00 Transition of Care Marlys Odell [id number] 350.1.13.10 4.2.7.2.686 [id number] [facility] 2023-08-23 08:31:00 2023-08-24 13:25:00 Outpatient ROLDAN PARKER [facility] [id number] [facility] 2023-08-04 14:56:23 2023-08-04 14:56:23 Outpatient SFA [facility] [id number] Willis Gil 2023-06-27 14:47:45 2023-06-27 14:47:45 Outpatient SFA [facility] [id number] Willis Gil 2023-05-19 09:04:00 2023-05-19 12:20:00 Emergency X TOD SELLERS [facility] ERT [id number] [facility] 2023-05-19 09:04:00 2023-05-19 12:20:00 [facility] 1.84.114 350.1.13.10 4.2.7.2.686 [id number] [facility] 2023-04-05 00:00:00 2023-04-05 00:00:00 Patient Secure Msg Prasanna Vargas [facility] 1..84.114 350.1.13.10 4.2.7.2.686 [id number] [facility] 2023-02-14 12:59:23 2023-02-14 12:59:23 Outpatient [facility] [id number] Willis Gil 2023-02-06 18:19:02 2023-02-06 18:19:02 Outpatient SFA [facility] [id number] Willis Gil 2023-01-30 00:00:00 2023-01-30 00:00:00 Outpatient BILL[facility] [id number] 2023-01-16 00:00:00 2023-01-16 00:00:00 Transition of Care Marlys Odell 1..840.114 350.1.13.10 4.2.7.2.686 [id number] [facility] 2023-01-11 21:06:00 2023-01-15 16:00:00 Inpatient X OLIVER STEELE [facility] DAVID [id number] [facility] 2023-01-11 21:06:00 2023-01-15 16:00:00 Hospital Encounter Artur, Aroldo Vergara, Mirella Steele, Oliver [facility]DO [facility] 1.2.840.114 350.1.13.10 4.2.7.2.686 [id number] [facility] 2023-01-12 00:00:00 2023-01-12 00:00:00 Travel 1.2.840.1 [id number] 3.104.2.7 .[id number] .8 1.2.840.114 350.1.13.10 4.2.7.3.698 [id number] [facility] 2023-01-11 00:00:00 2023-01-11 00:00:00 Travel 1.2.840.1 [id number] 3.104.2.7 .[id number] .8 [id number] 350.1.13.10 4.2.7.3.698 [id number] [facility] 2022-12-28 00:00:00 2022-12-28 00:00:00 Outpatient ERICKSON_R [facility] [id number] 2022-12-14 18:37:13 2022-12-14 18:37:13 Outpatient STEFANY MCCALL [id number] [facility] 2022-12-13 00:00:00 2022-12-13 00:00:00 Outpatient [facility] [id number] 2022-12-12 09:30:00 2022-12-12 09:30:00 Outpatient PRASANNA LOOMIS [facility] [id number] [facility] 2022-11-21 13:08:00 2022-11-21 16:45:00 Emergency X MANJU NEWELL [facility] ERT [id number] [facility] 2022-11-21 13:08:00 2022-11-21 16:45:00 Emergency Bridges, Manju Mejia 1.2.840.1 [id number] 3.104.2.7 .[id number] .[id number] [facility] 2022-11-21 00:00:00 2022-11-21 00:00:00 Travel 1.2.840.1 [id number] 3.104.2.7 .[id number] .8 1.2.840.114 350.1.13.10 4.2.7.3.698 084.8 [id number] [facility] 2022-11-18 10:08:00 2022-11-18 10:08:00 Outpatient [facility] [id number] 2022-11-15 09:40:00 2022-11-15 09:40:00 Outpatient LIAN LABOY [facility] [facility] [id number] [facility] 2022-11-15 00:00:00 2022-11-15 00:00:00 Orders Only Palak Marrufo 1.2.840.1 [id number] 3.104.2.7 .3.721390 .8 [id number] [facility] 2022-11-09 15:26:18 2022-11-09 15:26:18 Outpatient [facility] [id number] Williszaira Gil 2022-11-06 13:00:00 2022-11-06 13:00:00 Outpatient VIJAY ARAUZ [facility] [id number] [facility] 2022-10-29 00:00:00 2022-10-29 00:00:00 Patient Secure Lian Mason 1.2.840.1 90593.1.1 3.104.2.7 .3.790236 .[id number] [facility] 2022-10-29 00:00:00 2022-10-29 00:00:00 Patient Secure Msg Prasanna Vargas 1.2.840.1 55978.1.1 3.104.2.7 .3.910846 .8 [id number] [facility] 2022-10-03 00:00:00 2022-10-03 00:00:00 Letter (Out) Roldan iLm [facility] TOÑO?[facility] 1.840.114 350.1.13.10 4.2.7.2.686 [id number] [facility] 2022-10-02 10:00:00 2022-10-02 10:00:00 Outpatient R CELINA FINNEY [facility] [id number] [facility] 2022-10-01 09:40:00 2022-10-01 09:40:00 Outpatient R REJI DÍAZ [facility] [id number] [facility] 2022-09-25 00:00:00 2022-09-25 00:00:00 Telephone [facility] 1.84.114 350.1.13.10 4.2.7.2.686 [id number] [facility] 2022-09-21 09:30:00 2022-09-21 09:30:00 Outpatient R KASSANDRA PUGH [facility] [id number] [facility] 2022-09-21 00:00:00 2022-09-21 00:00:00 [facility] (Out[facility] 1.840.114 350.1.13.10 4.2.7.2.686 [id number] [facility] 2022-09-21 00:00:00 2022-09-21 00:00:00 Tele[facility] 1.840.114 350.1.13.10 4.2.7.2.686 [id number] [id number] [facility] 2022-09-21 00:00:00 2022-09-21 00:00:00 [facility] 1..840.114 350.1.13.10 4.2.7.2.686 [id number] [id number] [facility] 2022-09-14 09:30:00 2022-09-14 09:30:00 [facility] [id number] 2022-09-12 00:00:00 2022-09-12 00:00:00 Telephone Lexy [facility] MED[facility] OFF[facility] BUILD[facility] 1..840.114 350.1.13.10 4.2.7.2.686 [id number] [facility] 2022-09-07 11:30:00 2022-09-07 11:30:00 Outpatient R KASSANDRA PUGH [facility] [id number] [facility] 2022-09-05 08:44:00 2022-09-05 13:15:00 Emergency X KENNEDY WHITLEY [facility] ERT [id number] [facility] 2022-09-05 08:44:00 2022-09-05 13:15:00 Emergency Liset Tammieleonid [facility] 1..840.114 350.1.13.10 4.2.7.2.686 [id number] [facility] 2022-09-04 00:00:00 2022-09-04 00:00:00 Telephone Lexy [facility] MEDICAL OFFICE BUILD[facility] 1..840.114 350.1.13.10 4.2.7.2.686 [id number] [facility] 2022-09-04 00:00:00 2022-09-04 00:00:00 Patient Secure Msg Rad SerraPilar [facility] PROFESS[facility] NAL BUILDING 1.2.840.114 350.1.13.10 4.2.7.2.686 [id number] [facility] 2022-08-29 09:00:00 2022-08-29 09:00:00 Outpatient R CELINA FINNEY [facility] [id number] [facility] 2022-08-14 00:00:00 2022-08-14 00:00:00 Patient Secure Msg Doctor Unassigned, Jay [facility] 1.2.840.114 350.1.13.10 4.2.7.2.686 [id number] [facility] 2022-07-31 17:56:00 2022-07-31 20:30:00 Emergency X MANJU NEWELL [facility] ERT [id number] [facility] 2022-07-31 17:56:00 2022-07-31 20:30:00 Emergency Manju Newell [facility] 12.840.114 350.1.13.10 4.2.7.2.686 [id number] [facility] 2022-07-15 09:46:45 2022-07-15 23:59:00 Outpatient R CARI KAUR [facility] [id number] [facility] 2022-07-15 09:46:45 2022-07-15 23:59:00 Hospital Encounter Cari Kaur [facility] 1.2.840.114 350.1.13.10 4.2.7.2.686 [id number] [facility] 2022-07-15 09:46:45 2022-07-15 23:59:00 Hospital Encounter Cari Kaur [facility] MEDICAL OFFICE BUILDING 1.84114 350.1.13.10 4.2.7.2.686 [id number] [facility] 2022-07-15 09:20:00 2022-07-15 10:29:17 Urgent Care Cari Kaur Unknown, Attending [facility] MEDICAL OFFICE BUILDING 1.84114 350.1.13.10 4.2.7.2.686 [id number] [facility] 2022-07-15 00:00:00 2022-07-15 00:00:00 Orders Only Doctor Unassigned, Jay [facility] 1.84114 350.1.13.10 4.2.7.2.686 [id number] [facility] 2022-06-23 09:20:00 2022-06-23 10:27:39 Outpatient R PAUL SAMAYOA [facility] [id number] [facility] 2022-06-23 09:20:00 2022-06-23 10:27:39 Urgent Care Paul Samayoa Unknown, Attending [facility] MEDICAL OFFICE BUILDING 1.84114 350.1.13.10 4.2.7.2.686 [id number] [facility] 2022-06-23 00:00:00 2022-06-23 00:00:00 Orders Only Doctor Unassigned, Jay [facility] 1.284114 350.1.13.10 4.2.7.2.686 [id number] [facility] 2022-06-15 09:40:00 2022-06-15 09:40:00 Outpatient R LIAN GREENE [facility] [id number] [facility] 2022-05-29 08:00:00 2022-05-29 08:00:00 Outpatient R KASSANDRA PUGH [facility] [id number] [facility] 2022-05-15 09:20:00 2022-05-15 09:20:00 Outpatient R BENNETT MILLER [facility] [id number] [facility] 2022-05-11 09:30:00 2022-05-11 09:30:00 Outpatient R KASSANDRA PUGH [facility] [id number] [facility] 2022-05-05 12:26:00 2022-05-05 16:11:00 Emergency X KARON NORTON [facility] ERT [id number] [facility] 2022-05-05 12:26:00 2022-05-05 16:11:00 Emergency Karon Norton [facility] 1.2.840.114 350.1.13.10 4.2.7.2.686 [id number] [facility] 2022-05-01 00:00:00 2022-05-01 00:00:00 Outpatient R PRASANNA VARGAS [facility] [id number] [facility] 2022-04-26 08:30:00 2022-04-26 09:59:00 Emergency X BRIDGES ZION [facility] ERT [id number] [facility] 2022-04-26 08:30:00 2022-04-26 09:59:00 Emergency Zion Bridges [facility] 1.2.840.114 350.1.13.10 4.2.7.2.686 [id number] [facility] 2022-04-25 18:23:00 2022-04-25 21:55:00 Emergency X KENNEDY WHITLEY [facility] ERT [id number] [facility] 2022-04-25 18:23:00 2022-04-25 21:55:00 Emergency Kennedy Whitley [facility] 1.2.840.114 350.1.13.10 4.2.7.2.686 [id number] [id number] [facility] 2022-04-19 10:00:00 2022-04-19 10:00:00 Outpatient LIAN LABOY [facility] [id number] [facility] 2022-04-12 00:00:00 2022-04-12 00:00:00 Tele[facility] MARYVALEKassandra [facility] MED[facility] BU[facility] 1.2.840.114 350.1.13.10 4.2.7.2.686 [id number] [facility] 2022-04-11 00:00:00 2022-04-11 00:00:00 Telephone PattiDarrion [facility] TOÑO?[facility] MARYVALEKassandra [facility] OFF[facility] 1.2.840.114 350.1.13.10 4.2.7.2.686 [id number] [facility] 2022-04-10 00:00:00 2022-04-10 00:00:00 Telephone [facility] MARYVALEKassandra [facility] OFF[facility] BU[facility] 1.2.840.114 350.1.13.10 4.2.7.2.686 [id number] [facility] 2022-04-09 09:30:00 2022-04-09 09:30:00 Office [facility] MARYVALEKassandra [facility] OFF[facility] BU[facility] 1.2.840.114 350.1.13.10 4.2.7.2.686 [id number] [facility] 2022-04-09 09:30:00 2022-04-09 09:21:44 Outpatient R LEXYANASTASIIAKASSANDRA [facility] [id number] [facility] 2022-04-07 13:41:00 2022-04-07 17:49:00 Emergency X OLAMIDE GARVIN [facility] ERT [id number] [facility] 2022-04-07 13:41:00 2022-04-07 17:49:00 Emergency Olamide Garvin Panda [facility] 1..114 350.1.13.10 4.2.7.2.686 [id number] [facility] 2022-04-07 00:00:00 2022-04-07 00:00:00 Patient Secure Msg Doctor Unassigned, Jay [facility] 1.114 350.1.13.10 4.2.7.2.686 [id number] [facility] 2022-04-04 00:00:00 2022-04-04 00:00:00 Telephone Kassandra Pugh [facility] MEDICAL OFFICE BUILDING 1.84114 350.1.13.10 4.2.7.2.686 [id number] [facility] 2022-04-02 10:30:00 2022-04-02 10:30:00 Outpatient R KASSANDRA PUGH [facility] [id number] [facility] 2022-03-28 00:00:00 2022-03-28 00:00:00 Patient Secure Msg Doctor Unassigned, Jay [facility] MED[facility] OFFICE BUILDING 1.84114 350.1.13.10 4.2.7.2.686 [id number] [facility] 2022-03-24 07:35:00 2022-03-24 13:11:00 Emergency X KELLIE DUNCAN [facility] ERT [id number] [facility] 2022-03-24 07:35:00 2022-03-24 13:11:00 Emergency Kellie Duncan [facility] 1.114 350.1.13.10 4.2.7.2.686 [id number] [facility] 2022-03-23 10:30:00 2022-03-23 10:30:00 Outpatient R KASSANDRA PUGH [facility] [id number] [facility] 2022-03-23 00:00:00 2022-03-23 00:00:00 Telephone Darrion Wyatt [facility] TOÑO?TES[facility] MED[facility] OFFICE BUILDING 1.2.840.114 350.1.13.10 4.2.7.2.686 [id number] [facility] 2022-03-22 00:00:00 2022-03-22 00:00:00 Telephone Darrion Wyatt [facility] TOÑO?[facility] MED[facility] OFFICE BUILD[facility] 1..840.114 350.1.13.10 4.2.7.2.686 [id number] [id number] [facility] 2022-03-22 00:00:00 2022-03-22 00:00:00 Refill Patti [facility] TOÑO?[facility] MED[facility] OFFICE BUILDING 1..840.114 350.1.13.10 4.2.7.2.686 [id number] [facility] 2022-03-21 00:00:00 2022-03-21 00:00:00 Telephone Darrion Wyatt [facility] TOÑO?[facility] MED[facility] OFFICE BUILD[facility] 1..840.114 350.1.13.10 4.2.7.2.686 [id number] [facility] 2022-03-15 14:00:00 2022-03-15 14:36:19 Outpatient R REJI DÍAZ [facility] [id number] [facility] 2022-03-15 14:00:00 2022-03-15 14:36:19 [facility] N[facility] 1.2.840.114 350.1.13.10 4.2.7.2.686 [id number] [facility] 2022-03-15 08:40:00 2022-03-15 10:47:00 Emergency X ANNA GOULD [facility] ERT [id number] [facility] 2022-03-15 08:40:00 2022-03-15 10:47:00 Emergency Anna Gould [facility] 1.840.114 350.1.13.10 4.2.7.2.686 [id number] [facility] 2022-03-14 10:30:00 2022-03-14 10:30:00 Outpatient R PRASANNA VARGAS [facility] [id number] [facility] 2022-03-11 09:22:00 2022-03-11 12:15:00 Emergency X FELICE ANGELICA [facility] ERT [id number] [facility] 2022-03-11 09:22:00 2022-03-11 12:15:00 Emergency Angelica Viveros [facility] 1.840.114 350.1.13.10 4.2.7.2.686 [id number] [facility] 2022-03-06 08:30:00 2022-03-06 08:30:00 Outpatient KASSANDRA MCKINLEY [facility] [id number] [facility] 2022-03-02 00:00:00 2022-03-02 00:00:00 Telephone Darrion Wyatt [facility] 1.840.114 350.1.13.10 4.2.7.2.686 [id number] [id number] [facility] 2022-02-28 00:00:00 2022-02-28 00:00:00 Patient Secure Msg Doctor Unassigned, Jay [facility] 1.840.114 350.1.13.10 4.2.7.2.686 [id number] [facility] 2022-02-27 09:30:00 2022-02-27 09:49:42 Outpatient R KASSANDRA PUGH [facility] [id number] [facility] 2022-02-27 09:30:00 2022-02-27 09:49:42 Office Visit Anastasiia Pughssica [facility] MEDICAL OFFICE BUILDING 1.840.114 350.1.13.10 4.2.7.2.686 [id number] [facility] 2022-02-27 08:00:00 2022-02-27 09:12:17 Office Visit Vijay Martinez [facility] MEDICAL OFFICE BUILDING 1.840.114 350.1.13.10 4.2.7.2.686 [id number] [facility] 2022-02-26 11:30:00 2022-02-26 11:30:00 Outpatient R PUGHKASSANDRA [facility] [id number] [facility] 2022-02-21 01:20:00 2022-02-21 03:44:00 Emergency MAGGIE MONTANEZ [facility] ERT [id number] [facility] 2022-02-21 01:20:00 2022-02-21 03:44:00 Emergency Maggie Hamilton [facility] 1.840.114 350.1.13.10 4.2.7.2.686 [id number] [facility] 2022-02-19 00:00:00 2022-02-19 00:00:00 Patient Secure Kendal Medrano [facility] MEDICAL OFFICE BUILDING 1..840.114 350.1.13.10 4.2.7.2.686 [id number] [id number] [facility] 2022-02-19 00:00:00 2022-02-19 00:00:00 Patient Secure Msg Kendal Zamudio [facility] TOÑO?[facility] 1.2840.114 350.1.13.10 4.2.7.2.686 [id number] [facility] 2022-02-19 00:00:00 2022-02-19 00:00:00 Patient Secure Msg Ade [facility] 1.2.840.114 350.1.13.10 4.2.7.2.686 [id number] [facility] 2022-02-19 00:00:00 2022-02-19 00:00:00 Patient Secure Msg Jing Salazardayami Farzana [facility] DRY HEAT CABINET ATTENDANT [facility] & CHILD [facility] 1..840.114 350.1.13.10 4.2.7.2.686 [id number] [facility] 2022 11:58:00 2022 15:13:00 Emergency X MAGGIE HAMILTON [facility] ERT [id number] [facility] 2022 11:58:00 2022 15:13:00 Emergency Maggie Hamilton [facility] 1..840.114 350.1.13.10 4.2.7.2.686 [id number] [facility] 2022-02-09 09:00:00 2022-02-09 09:00:00 Outpatient R CRICKET TAYLOR [facility] [id number] [facility] 2022-02-06 10:00:00 2022-02-06 10:00:00 Outpatient R VIJAY MARTINEZ [facility] [id number] [facility] 2022-02-05 09:45:00 2022-02-05 10:05:00 Nurse Visit Nurse, Filippo [facility] Ileana Medrano [facility] TOÑO?[facility] 1..840.114 350.1.13.10 4.2.7.2.686 [id number] [facility] 2022-02-05 09:20:00 2022-02-05 09:20:00 Outpatient FLACO KEE [facility] [id number] [facility] 2022-01-26 00:00:00 2022-01-26 00:00:00 Case Management Prasanna Vargas [facility] PROFESSIO NAL BUILDING 1..840.114 350.1.13.10 4.2.7.2.686 [id number] [facility] 2022-01-22 11:00:00 2022-01-22 11:00:00 Outpatient VIJAY ARAUZ [facility] [id number] [facility] 2022-01-19 00:00:00 2022-01-19 00:00:00 Patient Secure Msg Doctor Unassigned, Jay [facility] 1..840.114 350.1.13.10 4.2.7.2.686 [id number] [facility] 2022-01-18 05:17:00 2022-01-18 10:25:00 Emergency BERNARDO WALTON [facility] ERT [id number] [facility] 2022-01-18 05:17:00 2022-01-18 10:25:00 Emergency Jayy Kennedy [facility] 1..840.114 350.1.13.10 4.2.7.2.686 [id number] [facility] 2022-01-15 08:34:00 2022-01-15 10:49:00 Emergency MAURA DALE [facility] ERT [id number] [facility] 2022-01-15 08:34:00 2022-01-15 10:49:00 Emergency AnaLarry newberry Robert Lee [facility] 1.2.840.114 350.1.13.10 4.2.7.2.686 [id number] [facility] 2022-01-08 18:04:00 2022-01-08 20:09:00 Emergency X HUMBERTO OCHOA [facility] ERT [id number] [facility] 2022-01-08 18:04:00 2022-01-08 20:09:00 Emergency Humberto Ochoa [facility] 1.2.840.114 350.1.13.10 4.2.7.2.686 [id number] [facility] 2021-12-12 13:30:00 2021-12-12 13:40:21 Outpatient Farzana CARNES [facility] [id number] [facility] 2021-12-12 13:30:00 2021-12-12 13:40:21 Office Visit Prasanna Varags [facility] 1.2.840.114 350.1.13.10 4.2.7.2.686 [id number] [facility] 2021-12-12 13:30:00 2021-12-12 13:40:21 Outpatient Farzana CARNES [facility] [id number] [facility] 2021-12-12 13:30:00 2021-12-12 13:40:21 Outpatient Farzana CARNES [facility] [id number] [facility] 2021-12-11 16:15:00 2021-12-11 16:15:00 Outpatient ADE KING [facility] [id number] [facility] 2021-12-05 14:15:00 2021-12-05 14:15:00 Outpatient ROMULO BROWNING [facility] [id number] [facility] 2021-11-28 08:49:00 2021-11-28 11:02:00 Emergency X KARON NORTON [facility] ERT [id number] [facility] 2021-11-28 08:49:00 2021-11-28 11:02:00 Emergency Karon Norton [facility] 1.2840.114 350.1.13.10 4.2.7.2.686 [id number] [facility] 2021-11-28 00:00:00 2021-11-28 00:00:00 Patient Secure Msg Cricket Taylor [facility] DRY HEAT CABINET ATTENDANT [facility] & CHILD [facility] 1.0.114 350.1.13.10 4.2.7.2.686 [id number] [facility] 2021-11-24 18:14:00 2021-11-24 21:04:00 Emergency X Kaycee MÉNDEZ [facility] ERT [id number] [facility] 2021-11-24 18:14:00 2021-11-24 21:04:00 Emergency DevKaycee [facility] 1.0.114 350.1.13.10 4.2.7.2.686 [id number] [facility] 2021-11-24 00:00:00 2021-11-24 00:00:00 Telephone Cricket Taylor [facility] DRY HEAT CABINET ATTENDANT [facility] 1.0.114 350.1.13.10 4.2.7.2.686 [id number] [facility] 2021-11-20 00:00:00 2021-11-20 00:00:00 Patient Secure g Kendal Zamudio [facility] 1.840.114 350.1.13.10 4.2.7.2.686 [id number] [facility] 2021-11-19 00:00:00 2021-11-19 00:00:00 Letter (Out) Leslie Santacruz [facility] 1.2.840.114 350.1.13.10 4.2.7.2.686 [id number] [facility] 2021-11-18 10:41:40 2021-11-18 23:59:00 Outpatient R [facility] [id number] [facility] 2021-11-18 10:41:40 2021-11-18 23:59:00 Hospital Encounter Oliver, [facility] MARYVALEKassandra [facility] MEDICAL OFFICE BUILD[facility] 1.2.840.114 350.1.13.10 4.2.7.2.686 [id number] [facility] 2021-11-18 10:20:00 2021-11-18 10:53:20 Urgent Care Oliver [facility] MEDICAL OFFICE BUILDING 1.2.840.114 350.1.13.10 4.2.7.2.686 [id number] [facility] 2021-11-09 10:30:00 2021-11-09 10:30:00 Outpatient R CELINA MIXON [facility] [id number] [facility] 2021-10-25 13:20:00 2021-10-25 13:20:00 [facility] MARYVALEKassandra [facility] MEDICAL OFFICE BUILD[facility] 1.2.840.114 350.1.13.10 4.2.7.2.686 [id number] [facility] 2021-10-25 13:20:00 2021-10-25 12:47:59 Outpatient R ILEANA MEDRANO [facility] [id number] [facility] 2021-10-25 00:00:00 2021-10-25 00:00:00 Patient Secure Msg Vijay Martinez [facility] TOÑO?[facility] [id number] 350.1.13.10 4.2.7.2.686 [id number] [facility] 2021-10-25 00:00:00 2021-10-25 00:00:00 Telephone Vijay Martinez [facility] [id number] 350.1.13.10 4.2.7.2.686 [id number] [facility] 2021-10-25 00:00:00 2021-10-25 00:00:00 Telephone Provider, Filippo [facility] TOÑO?[facility] [id number] 350.1.13.10 4.2.7.2.686 [id number] [facility] 2021-10-25 00:00:00 2021-10-25 00:00:00 Telephone Nurse, Filippo [facility] 1.2.840.114 350.1.13.10 4.2.7.2.686 [id number] [facility] 2021-10-24 10:15:00 2021-10-24 10:15:00 Outpatient ROMULO BROWNING [facility] [id number] [facility] 2021-10-24 10:15:00 2021-10-24 10:15:00 Outpatient ROMULO BROWNING [facility] [id number] [facility] 2021-10-11 09:30:00 2021-10-11 09:30:00 Outpatient ROMULO BROWNING [facility] [id number] [facility] 2021-10-10 13:30:00 2021-10-10 13:30:00 Outpatient PRASANNA LOOMIS [facility] [id number] [facility] 2021-10-10 13:30:00 2021-10-10 13:30:00 Outpatient R PRASANNA VARGAS [facility] [id number] [facility] 2021-10-10 13:30:00 2021-10-10 13:30:00 Outpatient R PRASANNA VARGAS [facility] [id number] [facility] 2021-10-10 13:30:00 2021-10-10 13:30:00 Outpatient R PRASANNA VARGAS [facility] [id number] [facility] 2021-10-10 13:30:00 2021-10-10 13:30:00 Outpatient R PRASANNA VARGAS [facility] [id number] [facility] 2021-10-10 13:30:00 2021-10-10 13:30:00 Outpatient R PRASANNA VARGAS [facility] [id number] [facility] 2021-10-10 13:30:00 2021-10-10 13:30:00 Outpatient R PRASANNA VARGAS [facility] [id number] [facility] 2021-10-05 00:00:00 2021-10-05 00:00:00 Patient Secure Msg Robb [facility] MED[facility] OFF[facility] BUILD[facility] 1.84.114 350.1.13.10 4.2.7.2.686 [id number] [facility] 2021-10-05 00:00:00 2021-10-05 00:00:00 Patient Secure Msg Robb [facility] 1.84.114 350.1.13.10 4.2.7.2.686 [id number] [facility] 2021-10-04 00:00:00 2021-10-04 00:00:00 Pre Visit Outreach Melia Rodriguez 1.840.114 350.1.13.10 4.2.7.2.686 [id number] [facility] 2021-09-28 13:30:00 2021-09-28 13:45:00 Office Visit OnurCelina [facility] 1.2.840.114 350.1.13.10 4.2.7.2.686 [id number] [facility] 2021-09-28 13:30:00 2021-09-28 13:30:00 Outpatient CELINA STONE [facility] [id number] [facility] 2021-09-28 13:30:00 2021-09-28 13:30:00 Outpatient CELINA STONE [facility] [id number] [facility] 2021-09-28 00:00:00 2021-09-28 00:00:00 Patient Secure Msg Celina Mixon Kassandra [facility] 1.2.840.114 350.1.13.10 4.2.7.2.686 [id number] [facility] 2021-09-27 14:00:00 2021-09-27 14:00:00 Outpatient TETO BRANTLEY [facility] [id number] [facility] 2021-09-27 09:30:00 2021-09-27 09:30:00 Outpatient DANIA RICARDO [facility] [id number] [facility] 2021-09-27 09:30:00 2021-09-27 09:30:00 Outpatient DANIA RICARDO [facility] [id number] [facility] 2021-09-27 09:30:00 2021-09-27 09:30:00 Outpatient DANIA RICARDO [facility] [id number] [facility] 2021-09-26 10:45:00 2021-09-26 10:45:00 Outpatient CRICKET FRYE [facility] [id number] [facility] 2021-09-26 10:45:00 2021-09-26 10:45:00 Outpatient R CRICKET TAYLOR [facility] [id number] [facility] 2021-09-26 00:00:00 2021-09-26 00:00:00 Patient Secure Msg Vijay Martinez [facility] TOÑO?[facility] 1.2.840.114 350.1.13.10 4.2.7.2.686 [id number] [facility] 2021-09-26 00:00:00 2021-09-26 00:00:00 Patient Secure Msg Vijay Martinez [facility] TOÑO?[facility] 1.2.840.114 350.1.13.10 4.2.7.2.686 [id number] [facility] 2021-09-25 10:20:00 2021-09-25 11:10:42 Urgent Care OliverFlaco Amanda [facility] TOÑO?[facility] 1.2.840.114 350.1.13.10 4.2.7.2.686 [id number] [facility] 2021-09-25 10:20:00 2021-09-25 11:10:42 Outpatient R FLACO BOYD [facility] [id number] [facility] 2021-09-25 10:20:00 2021-09-25 10:20:00 Outpatient R FLACO BOYD [facility] [id number] [facility] 2021-09-25 10:00:00 2021-09-25 10:00:00 Outpatient R PRASANNA VARGAS [facility] [id number] [facility] 2021-09-25 00:00:00 2021-09-25 00:00:00 Telephone OliverNoelleFlaco [facility] TOÑO?[facility] OFF[facility] BUILD[facility] 1.2.840.114 350.1.13.10 4.2.7.2.686 [id number] [facility] 2021-09-25 00:00:00 2021-09-25 00:00:00 Patient Secure Msg Prasanna [facility]arg[facility] 1.840.114 350.1.13.10 4.2.7.2.686 [id number] [facility] 2021-09-25 00:00:00 2021-09-25 00:00:00 Telephone Cricket Taylor [facility] 1..114 350.1.13.10 4.2.7.2.686 [id number] [facility] 2021-09-25 00:00:00 2021-09-25 00:00:00 Telephone Celina Mixon [facility] 1.0.114 350.1.13.10 4.2.7.2.686 [id number] [facility] 2021-09-15 00:00:00 2021-09-15 00:00:00 Patient Secure Msg Kendal Zamudio [facility] MED[facility] OFFICE BUILD[facility] 1.114 350.1.13.10 4.2.7.2.686 [id number] [id number] [facility] 2021-09-15 00:00:00 2021-09-15 00:00:00 Patient Secure Msg Kendal Zamudio [facility] MED[facility] OFFICE BUILD[facility] 1..114 350.1.13.10 4.2.7.2.686 [id number] [id number] [facility] 2021-09-15 00:00:00 2021-09-15 00:00:00 Patient Secure Msg Kendal Zamudio [facility] MED[facility] OFFICE BUILD[facility] 1.114 350.1.13.10 4.2.7.2.686 [id number] [id number] [facility] 2021-09-14 00:00:00 2021-09-14 00:00:00 Patient Secure Msg Vijay Martinez [facility] TOÑO?[facility] OFF[facility] BUILD[facility] 1.114 350.1.13.10 4.2.7.2.686 [id number] [facility] 2021-09-14 00:00:00 2021-09-14 00:00:00 Patient Secure Msg Doctor Unassigned, Jay [facility] OFF[facility] BUILD[facility] 1.84114 350.1.13.10 4.2.7.2.686 [id number] [facility] 2021-09-12 10:30:00 2021-09-12 10:30:00 Outpatient CELINA STONE [facility] [id number] [facility] 2021-09-12 10:30:00 2021-09-12 10:30:00 Outpatient CELINA STONE [facility] [id number] [facility] 2021-09-12 00:00:00 2021-09-12 00:00:00 Patient Secure Msg Daniel Dsouza [facility] 1.114 350.1.13.10 4.2.7.2.686 [id number] [facility] 2021-09-12 00:00:00 2021-09-12 00:00:00 Orders Only Doctor Unassigned, Jay [facility] 1.114 350.1.13.10 4.2.7.2.686 [id number] [facility] 2021-09-12 00:00:00 2021-09-12 00:00:00 Patient Secure Msg Vijay Martinez [facility] TOÑO?[facility] 1.0.114 350.1.13.10 4.2.7.2.686 [id number] [facility] 2021-09-05 00:00:00 2021-09-05 00:00:00 Patient Secure Msg Vijay Martinez [facility] TOÑO?[facility] 1.0.114 350.1.13.10 4.2.7.2.686 [id number] 044 [id number] [facility] 2021-09-05 00:00:00 2021-09-05 00:00:00 Patient Secure Msg Doctor Unassigned, Jay [facility] 1.0.114 350.1.13.10 4.2.7.2.686 [id number] [facility] 2021-09-05 00:00:00 2021-09-05 00:00:00 Patient Secure Msg Doctor Unassigned, Jay [facility] 1.0.114 350.1.13.10 4.2.7.2.686 [id number] [facility] 2021-09-04 00:00:00 2021-09-04 00:00:00 Patient Secure Msg Vijay Martinez [facility] TOÑO?[facility] 1..114 350.1.13.10 4.2.7.2.686 [id number] [id number] [facility] 2021-08-28 00:00:00 2021-08-28 00:00:00 Patient Secure Msg Harsh Charles [facility] 1..114 350.1.13.10 4.2.7.2.686 [id number] [facility] 2021-08-25 00:00:00 2021-08-25 00:00:00 Telephone Dania Pennington [facility] 1.2.840.114 350.1.13.10 4.2.7.2.686 [id number] [facility] 2021-08-25 00:00:00 2021-08-25 00:00:00 Patient Secure Msg Vijay Martinez [facility] MED[facility] OFF[facility] BUILD[facility] 1.2.840.114 350.1.13.10 4.2.7.2.686 [id number] 044 [id number] [facility] 2021-08-24 00:00:00 2021-08-24 00:00:00 Telephone Vijay Martinez [facility] OFF[facility] BU[facility] 1.2.840.114 350.1.13.10 4.2.7.2.686 [id number] [facility] 2021-08-24 00:00:00 2021-08-24 00:00:00 Patient Secure Msg Vijay Martinez [facility] OFF[facility] BU[facility] 1.2.840.114 350.1.13.10 4.2.7.2.686 [id number] [facility] 2021-08-23 00:00:00 2021-08-23 00:00:00 Patient Secure Msg Vijay Martinez [facility] OFF[facility] BU[facility] 1.2.840.114 350.1.13.10 4.2.7.2.686 [id number] [facility] 2021-08-23 00:00:00 2021-08-23 00:00:00 Telephone Vijay Martinez [facility] 1.2.840.114 350.1.13.10 4.2.7.2.686 [id number] [facility] 2021-08-22 00:00:00 2021-08-22 00:00:00 Telephone Vijay Martinez [facility] TOÑO?[facility] MED[facility] OFF[facility] BUILD[facility] 1.2840.114 350.1.13.10 4.2.7.2.686 [id number] [facility] 2021-08-22 00:00:00 2021-08-22 00:00:00 Patient Secure Msg Hallie Wilkinson [facility] TOÑO?[facility] OFF[facility] BUILD[facility] 1.20.114 350.1.13.10 4.2.7.2.686 [id number] [id number] [facility] 2021-08-18 00:00:00 2021-08-18 00:00:00 Telephone Vijay Martinez [facility] TOÑO?[facility] OFF[facility] BUILD[facility] 1.840114 350.1.13.10 4.2.7.2.686 [id number] [facility] 2021-08-17 09:00:00 2021-08-17 09:00:00 Outpatient CELINA STONE [facility] [id number] [facility] 2021-08-17 09:00:00 2021-08-17 09:00:00 Outpatient CELINA STONE [facility] [id number] [facility] 2021-08-17 00:00:00 2021-08-17 00:00:00 Patient Secure Msg Prasanna Vargas Jm [facility] PROFESSIO NAL BUILDING 1.84.114 350.1.13.10 4.2.7.2.686 [id number] [facility] 2021-08-17 00:00:00 2021-08-17 00:00:00 Patient Secure Msg Vijay Martinez [facility] TOÑO?[facility] MED[facility] OFF[facility] BUILD[facility] 1.284.114 350.1.13.10 4.2.7.2.686 [id number] [facility] 2021-08-17 00:00:00 2021-08-17 00:00:00 Patient Secure Msg Vijay Martinez [facility] MED[facility] OFF[facility] BUILD[facility] 1.2840.114 350.1.13.10 4.2.7.2.686 [id number] [id number] [facility] 2021-08-16 00:00:00 2021-08-16 00:00:00 Patient Secure Msg Vijay Martinez [facility] OFF[facility] BUILD[facility] 1.2840.114 350.1.13.10 4.2.7.2.686 [id number] [facility] 2021-08-16 00:00:00 2021-08-16 00:00:00 Patient Secure Msg Doctor Unassigned, Jay [facility] 1.2840.114 350.1.13.10 4.2.7.2.686 [id number] [id number] [facility] 2021-08-16 00:00:00 2021-08-16 00:00:00 Patient Secure Msg Vijay Martinez [facility] 1.2840.114 350.1.13.10 4.2.7.2.686 [id number] 044 [id number] [facility] 2021-08-16 00:00:00 2021-08-16 00:00:00 Patient Secure Msg Vijay Martinez [facility] 1.2840.114 350.1.13.10 4.2.7.2.686 [id number] [facility] 2021-08-15 15:30:00 2021-08-15 16:16:42 Office Visit Adán Kim [facility] MEDICAL OFFICE BUILDING 1.2840.114 350.1.13.10 4.2.7.2.686 [id number] [facility] 2021-08-15 15:30:00 2021-08-15 16:16:42 Outpatient ADÁN DIEGO [facility] [id number] [facility] 2021-08-15 15:30:00 2021-08-15 15:30:00 Outpatient ADÁN DIEGO [facility] [id number] [facility] 2021-08-15 15:30:00 2021-08-15 15:30:00 Outpatient ADÁN DIEGO [facility] [id number] [facility] 2021-08-15 15:30:00 2021-08-15 15:30:00 Outpatient ADÁN DIEGO [facility] [id number] [facility] 2021-08-15 09:27:00 2021-08-15 12:26:00 Emergency X MAURA SAMAYOA [facility] ERT [id number] [facility] 2021-08-15 09:27:00 2021-08-15 12:26:00 Emergency Maura Samayoa [facility] 1..840.114 350.1.13.10 4.2.7.2.686 [id number] [facility] 2021-08-15 09:27:00 2021-08-15 12:26:00 Emergency MAURA DALE [facility] ERT [id number] [facility] 2021-08-15 00:00:00 2021-08-15 00:00:00 Patient Secure Msg Doctor Unassigned, Jay [facility] 1..840.114 350.1.13.10 4.2.7.2.686 [id number] [facility] 2021-08-14 13:25:00 2021-08-14 23:59:00 Outpatient VIJAY ARAUZ [facility] [id number] [facility] 2021-08-14 13:25:00 2021-08-14 23:59:00 Outpatient R VÍCTORVIJAY Cannon [facility] [id number] [facility] 2021-08-14 13:25:00 2021-08-14 13:25:00 Outpatient R VÍCTORRICHELLE CannonIE [facility] [id number] [facility] 2021-08-14 12:19:07 2021-08-14 13:24:00 Outpatient R VÍCTORRICHELLE CannonIE [facility] [id number] [facility] 2021-08-14 12:19:07 2021-08-14 13:24:00 Outpatient R VÍCTORRICHELLE CannonIE [facility] [id number] [facility] 2021-08-14 12:30:00 2021-08-14 13:01:24 Radiation Oncology Manager Visit Lab, Filippo Martinez [facility] TOÑO?[facility] MEDICAL OFFICE BUILDING 1.2.840.114 350.1.13.10 4.2.7.2.686 [id number] [facility] 2021-08-14 12:30:00 2021-08-14 12:45:00 Radiation Oncology Manager Visit Lab, Filippo Martinez [facility] TOÑO?[facility] MARYVALEKassandra [facility] MED[facility] OFF[facility] BUILD[facility] 1.2.840.114 350.1.13.10 4.2.7.2.686 [id number] [facility] 2021-08-14 11:30:00 2021-08-14 12:31:12 Office Visit Juan [facility] TOÑO?[facility] MARYVALEKassandra [facility] MED[facility] OFF[facility] BUILD[facility] 1.2.840.114 350.1.13.10 4.2.7.2.686 [id number] [facility] 2021-08-14 11:30:00 2021-08-14 12:31:12 Outpatient R VIJAY MARTINEZ [facility] [id number] [facility] 2021-08-14 00:00:00 2021-08-14 00:00:00 Patient Secure Msg Cotta, [facility] TOÑO?[facility] 1.2.840.114 350.1.13.10 4.2.7.2.686 [id number] [facility] 2021-08-14 00:00:00 2021-08-14 00:00:00 Patient Secure Msg Vijay Martinez [facility] TOÑO?[facility] 1.2.840.114 350.1.13.10 4.2.7.2.686 [id number] [facility] 2021-08-09 14:45:00 2021-08-09 14:45:00 Outpatient ADÁN DIEGO [facility] [id number] [facility] 2021-08-09 00:00:00 2021-08-09 00:00:00 Telephone Vijay Martinez [facility] TOÑO?[facility] OFF[facility]ILD[facility] 1.2.840.114 350.1.13.10 4.2.7.2.686 [id number] [facility] 2021-08-08 11:30:00 2021-08-08 23:59:00 Outpatient R VIJAY MARTINEZ [facility] [id number] [facility] 2021-08-08 11:30:00 2021-08-08 23:59:00 Hospital Encounter Vijay Martinez [facility] TOÑO?[facility] 1.2.840.114 350.1.13.10 4.2.7.2.686 [id number] [facility] 2021-08-08 11:15:00 2021-08-08 11:15:00 Outpatient R VIJAY MARTINEZ [facility] [id number] [facility] 2021-08-08 11:00:00 2021-08-08 11:00:00 Outpatient R VIJAY MARTINEZ [facility] [id number] [facility] 2021-08-08 00:00:00 2021-08-08 00:00:00 Patient Secure Msg Doctor Unassigned, Jay [facility] 1.2840.114 350.1.13.10 4.2.7.2.686 [id number] [facility] 2021-08-07 09:30:00 2021-08-07 10:23:21 Office Visit JuanVijay [facility] TOÑO?[facility] MEDICAL OFFICE BUILDING 1.20.114 350.1.13.10 4.2.7.2.686 [id number] [facility] 2021-08-07 09:30:00 2021-08-07 10:23:21 Outpatient R VIJAY MARTINEZ [facility] [id number] [facility] 2021-08-07 09:30:00 2021-08-07 09:30:00 Outpatient R VIJAY MARTINEZ [facility] [id number] [facility] 2021-08-07 00:00:00 2021-08-07 00:00:00 Patient Secure Msg Vijay Martinez [facility] TOÑO?[facility] MED[facility] OFFICE BUILDING 1.284.114 350.1.13.10 4.2.7.2.686 [id number] [facility] 2021-08-07 00:00:00 2021-08-07 00:00:00 Patient Secure Msg Vijay Martinez [facility] TOÑO?[facility] MED[facility] OFFICE BUILDING 1.2840.114 350.1.13.10 4.2.7.2.686 [id number] [facility] 2021-08-07 00:00:00 2021-08-07 00:00:00 Patient Secure Msg OnurRichelle daileyCelina A [facility] 1.2840.114 350.1.13.10 4.2.7.2.686 [id number] [facility] 2021-08-04 10:00:00 2021-08-04 10:00:00 Outpatient R PETRA RENO [facility] [id number] [facility] 2021-08-04 00:00:00 2021-08-04 00:00:00 Patient Secure Msg Vijay Martinez [facility] TOÑO?[facility] 1..840.114 350.1.13.10 4.2.7.2.686 [id number] [facility] 2021-08-03 11:00:00 2021-08-03 12:48:43 Office Visit Jayy Diaz [facility]. ..840.114 350.1.13.10 4.2.7.2.686 [id number] [facility] 2021-08-03 11:00:00 2021-08-03 12:48:43 Outpatient R JAYY DIAZ [facility] [id number] [facility] 2021-08-03 11:00:00 2021-08-03 11:00:00 Outpatient R EMILY JAYY [facility] [id number] [facility] 2021-08-03 00:00:00 2021-08-03 00:00:00 Patient Secure Celina Zheng [facility] 1..840.114 350.1.13.10 4.2.7.2.686 [id number] [facility] 2021-08-02 00:00:00 2021-08-02 00:00:00 Telephone Vijay Martinez [facility] TOÑO?[facility] 1..840.114 350.1.13.10 4.2.7.2.686 [id number] [facility] 2021-07-21 08:00:00 2021-07-21 08:52:53 Outpatient DARRION QUIROZ HOWARD [facility] [id number] [facility] 2021-07-17 11:30:00 2021-07-17 11:30:00 Outpatient R VIJAY MARTINEZ [facility] [id number] [facility] 2021-07-17 00:00:00 2021-07-17 00:00:00 Patient Secure Msg Vijay Martinez [facility] TOÑO?[facility] OFFICE BUILDING 1.2.840.114 350.1.13.10 4.2.7.2.686 [id number] [facility] 2021-06-19 00:00:00 2021-06-19 00:00:00 Telephone Vijay Martinez [facility] TOÑO?[facility] BUILDING 1.2.840.114 350.1.13.10 4.2.7.2.686 [id number] [facility] 2021-06-09 00:00:00 2021-06-09 00:00:00 Telephone Reji Díaz [facility] BUILDING 1.2.840.114 350.1.13.10 4.2.7.2.686 [id number] [facility] 2021-06-06 11:15:00 2021-06-06 11:15:00 Outpatient TETO BRANTLEY [facility] [id number] [facility] 2021-06-06 11:15:00 2021-06-06 11:15:00 Outpatient TETO BRANTLEY [facility] [id number] [facility] 2021-06-02 15:45:00 2021-06-02 15:45:00 Outpatient CLAUDETTE CEDILLO [facility] [id number] [facility] 2021-05-31 10:00:00 2021-05-31 10:46:31 Outpatient VIJAY ARAUZ [facility] [id number] [facility] 2021-05-31 10:00:00 2021-05-31 10:46:31 Office Visit VíctorVijay cannon [facility] TOÑO?[facility] MED[facility] OFFICE BUILDING 1.2.840.114 350.1.13.10 4.2.7.2.686 [id number] [facility] 2021-05-31 10:00:00 2021-05-31 10:46:31 Outpatient R VÍCTORVIJAY Cannon [facility] [id number] [facility] 2021-05-31 00:00:00 2021-05-31 00:00:00 Orders Only Doctor Unassigned, Jay [facility] 1.2.840.114 350.1.13.10 4.2.7.2.686 [id number] [facility] 2021-05-26 00:00:00 2021-05-26 00:00:00 Telephone Skylar Groves [facility] TOÑO?[facility] MEDICAL OFFICE BUILDING 1.2.840.114 350.1.13.10 4.2.7.2.686 [id number] [facility] 2021-05-26 00:00:00 2021-05-26 00:00:00 Patient Secure Msg Prasanna Vargas [facility] PROFESSIO NAL BUILDING 1.2.840.114 350.1.13.10 4.2.7.2.686 [id number] [facility] 2021-05-25 14:00:00 2021-05-25 14:30:00 Telemedici ne Visit Skylar Groves [facility] TOÑO?[facility] 1.2.840.114 350.1.13.10 4.2.7.2.686 [id number] [facility] 2021-05-25 14:00:00 2021-05-25 14:00:00 Outpatient R SKYLAR GROVES [facility] [id number] [facility] 2021-05-25 14:00:00 2021-05-25 14:00:00 Outpatient R SKYLAR GROVES [facility] [id number] [facility] 2021-05-25 00:00:00 2021-05-25 00:00:00 Patient Secure Msg Skylar Groves [facility] TOÑO?[facility] MED[facility] OFF[facility] 1.2.840.114 350.1.13.10 4.2.7.2.686 [id number] [facility] 2021-05-25 00:00:00 2021-05-25 00:00:00 Patient Secure Msg Skylar Groves [facility] TOÑO?[facility] MED[facility] OFF[facility] BUILD[facility] 1.2.840.114 350.1.13.10 4.2.7.2.686 [id number] [facility] 2021-05-24 00:00:00 2021-05-24 00:00:00 Telephone Rad Serra [facility] BUILD[facility] 1.2.840.114 350.1.13.10 4.2.7.2.686 [id number] [facility] 2021-05-24 00:00:00 2021-05-24 00:00:00 Patient Secure Msg aRd SerraHPilar [facility] BUILDING 1.2.840.114 350.1.13.10 4.2.7.2.686 [id number] [facility] 2021-05-24 00:00:00 2021-05-24 00:00:00 Patient Secure Msg Claudette Evans [facility] TOÑO?[facility] MED[facility] OFF[facility] BUILD[facility] 1.2.840.114 350.1.13.10 4.2.7.2.686 [id number] [facility] 2021-05-23 10:00:00 2021-05-23 10:00:00 Outpatient R [facility] [id number] [facility] 2021-05-23 10:00:00 2021-05-23 10:00:00 Outpatient R [facility] [id number] [facility] 2021-05-23 00:00:00 2021-05-23 00:00:00 Patient Secure Carmelina Hindsrico [facility] TO[facility]O?[facility] 1..840.114 350.1.13.10 4.2.7.2.686 [id number] [facility] 2021-05-16 09:00:00 2021-05-16 09:00:00 Outpatient R TETO CARNES [facility] [id number] [facility] 2021-05-12 00:00:00 2021-05-12 00:00:00 Orders Only Doctor Unassigned, Jay [facility] 1..840.114 350.1.13.10 4.2.7.2.686 [id number] [facility] 2021-05-10 13:00:00 2021-05-10 13:00:00 Outpatient CARMELINA CEDILLORICO [facility] [id number] [facility] 2021-05-10 13:00:00 2021-05-10 13:00:00 Outpatient Farzana CRISTINACARMELINA SINGHRICO [facility] [id number] [facility] 2021-05-09 00:00:00 2021-05-09 00:00:00 Telephone Prasanna Vargas [facility] BUILD[facility] 1..840.114 350.1.13.10 4.2.7.2.686 [id number] [facility] 2021-05-09 00:00:00 2021-05-09 00:00:00 Patient Secure Rad Wells [facility] BUILD[facility] 1..840.114 350.1.13.10 4.2.7.2.686 [id number] [facility] 2021-05-08 16:00:00 2021-05-08 16:00:00 Outpatient JE CRABTREE [facility] [id number] [facility] 2021-05-08 16:00:00 2021-05-08 16:00:00 Outpatient JE CRABTREE [facility] [id number] [facility] 2021-05-08 00:00:00 2021-05-08 00:00:00 Patient Secure g Rad Serra K.. [facility] BUILDING 1.2.840.114 350.1.13.10 4.2.7.2.686 [id number] [id number] [facility] 2021-05-08 00:00:00 2021-05-08 00:00:00 Patient Secure g Rad Serra.H. [facility] BUILDING 1.2.840.114 350.1.13.10 4.2.7.2.686 [id number] [facility] 2021-05-04 00:00:00 2021-05-04 00:00:00 Patient Secure g Rad Serra K.H. [facility] BUILDING 1.2.840.114 350.1.13.10 4.2.7.2.686 [id number] [id number] [facility] 2021-05-04 00:00:00 2021-05-04 00:00:00 [facility] 1.2.840.114 350.1.13.10 4.2.7.2.686 [id number] [id number] [facility] 2021-05-03 11:15:36 2021-05-03 23:59:00 Outpatient Farzana REJI DÍAZ [facility] [id number] [facility] 2021-05-03 11:15:36 2021-05-03 23:59:00 Hospital Encounter Laith Díazraheel [facility] BUILDING 1.284.114 350.1.13.10 4.2.7.2.686 [id number] [facility] 2021-05-03 00:00:00 2021-05-03 00:00:00 Telephone Claudette Evans [facility] MEDICAL OFFICE BUILDING 1.84.114 350.1.13.10 4.2.7.2.686 [id number] 044 [id number] [facility] 2021-05-02 00:00:00 2021-05-02 00:00:00 Telephone Rad Serra K.HPilar [facility] BUILDING 1.84.114 350.1.13.10 4.2.7.2.686 [id number] [id number] [facility] 2021-05-02 00:00:00 2021-05-02 00:00:00 Patient Secure Msg Claudette Evans [facility] MEDICAL OFFICE BUILDING 1.84.114 350.1.13.10 4.2.7.2.686 [id number] 044 [id number] [facility] 2021-05-02 00:00:00 2021-05-02 00:00:00 Telephone Claudette Evans [facility] [place] MEDICAL OFFICE BUILDING 1.84.114 350.1.13.10 4.2.7.2.686 [id number] [id number] [facility] 2021-05-02 00:00:00 2021-05-02 00:00:00 Patient Secure Msg Rad Serra K.H. [facility] BUILDING 1.284.114 350.1.13.10 4.2.7.2.686 [id number] [id number] [facility] 2021-05-02 00:00:00 2021-05-02 00:00:00 Patient Secure Claudette Hinds [facility] TOÑO?[facility] MEDICAL OFFICE BUILDING 1.2.840.114 350.1.13.10 4.2.7.2.686 [id number] [id number] [facility] 2021-04-28 00:00:00 2021-04-28 00:00:00 Patient Secure Claudette Hinds [facility] TOÑO?[facility] MEDICAL OFFICE BUILDING 1..840.114 350.1.13.10 4.2.7.2.686 [id number] [facility] 2021-04-27 14:24:00 2021-04-27 15:49:00 Emergency X MAGGIE HAMILTON [facility] E[facility] [id number] [facility] 2021-04-27 14:24:00 2021-04-27 15:49:00 Emergency Maggie Hamilton [facility] 1.2.840.114 350.1.13.10 4.2.7.2.686 [id number] [facility] 2021-04-27 11:15:00 2021-04-27 11:30:00 Laboratory Only Only, Ang Db Test Unknown, Attending Thony Johnson [facility] 1..840.114 350.1.13.10 4.2.7.2.686 [id number] [facility] 2021-04-27 11:15:00 2021-04-27 11:15:00 Outpatient R THONY JOHNSON [facility] [id number] [facility] 2021-04-27 00:00:00 2021-04-27 00:00:00 Orders Only Doctor Unassigned, Jay [facility] 1.2840.114 350.1.13.10 4.2.7.2.686 [id number] [facility] 2021-04-20 15:00:00 2021-04-20 15:00:00 Outpatient EDER RENEE [facility] [id number] [facility] 2021-04-13 00:00:00 2021-04-13 00:00:00 Patient Secure Msg [facility] BU[facility] 1.2.840.114 350.1.13.10 4.2.7.2.686 [id number] 044 [id number] [facility] 2021-04-12 00:00:00 2021-04-12 00:00:00 Telephone [facility] MEDICAL OFFICE BUILDING 1.2840.114 350.1.13.10 4.2.7.2.686 [id number] [facility] 2021-03-27 00:00:00 2021-03-27 00:00:00 Telephone Prasanna Vargas [facility] BUILDING 1.2.840.114 350.1.13.10 4.2.7.2.686 [id number] [facility] 2021-03-24 00:00:00 2021-03-24 00:00:00 Patient Secure Msg Doctor Unassigned, Jay [facility] 1.2840.114 350.1.13.10 4.2.7.2.686 [id number] [facility] 2021-03-23 13:30:00 2021-03-23 13:30:00 Outpatient PINO AGUIAR [facility] [id number] [facility] 2021-03-23 13:30:00 2021-03-23 13:30:00 Outpatient R JOSE HOFFMADDIE [facility] [id number] [facility] 2021-03-22 09:20:00 2021-03-22 09:20:00 Outpatient R ANN-MARIEGERARDOJABIER JAYCENEHEMIAH CLEMENTEOREz [facility] [id number] [facility] 2021-03-22 09:20:00 2021-03-22 09:20:00 [facility] [id number] [facility] 2021-03-20 00:00:00 2021-03-20 00:00:00 Outpatient R CLAUDETTE EVANS [facility] [id number] [facility] 2021-03-18 00:00:00 2021-03-18 00:00:00 Case Management Cristina [facility] MEDICAL OFFICE BUILDING 1.2.840.114 350.1.13.10 4.2.7.2.686 [id number] [facility] 2021-03-16 11:16:07 2021-03-16 11:31:07 Radiation Oncology Manager Visit Lab, Filippo - Casper Evans Carmelinatainabonnie [facility] MEDICAL OFFICE BUILDING 1.2.840.114 350.1.13.10 4.2.7.2.686 [id number] [facility] 2021-03-16 11:30:00 2021-03-16 11:30:00 Outpatient R CLAUDETTE EVANS [facility] [id number] [facility] 2021-03-16 11:00:00 2021-03-16 11:14:45 Outpatient R CLAUDETTE EVANS [facility] [id number] [facility] 2021-03-16 10:00:58 2021-03-16 11:14:45 Office Visit Cristina Carmelinarico Kassandra [facility] MEDICAL OFFICE BUILDING 1.84.114 350.1.13.10 4.2.7.2.686 [id number] 044 [id number] [facility] 2021-03-16 00:00:00 2021-03-16 00:00:00 Patient Secure Msg Claudette Evans [facility] TOÑO?[facility] OFF[facility] BUILDING 1.840.114 350.1.13.10 4.2.7.2.686 [id number] [facility] 2021-03-02 16:15:00 2021-03-02 16:15:00 Outpatient R CRISTINACARMELINA SINGHRICO [facility] [id number] [facility] 2021-02-28 18:30:00 2021-02-28 18:30:00 Outpatient R ILEANA MEDRANO [facility] [id number] [facility] 2021-02-28 00:00:00 2021-02-28 00:00:00 Telephone Claudette Evans [facility] Toño?[facility] Building 1.84.114 350.1.13.10 4.2.7.2.686 [id number] [facility] 2021-02-27 09:00:00 2021-02-27 09:00:00 Outpatient R AMELIA HAMMOND [facility] [id number] [facility] 2021-02-23 00:00:00 2021-02-23 00:00:00 Telephone Claudette Evans [facility] Toño?[facility] 1.84.114 350.1.13.10 4.2.7.2.686 [id number] [facility] 2021-02-10 18:12:00 2021-02-10 23:39:00 Emergency Kaycee Méndez [facility] 1.840.114 350.1.13.10 4.2.7.2.686 [id number] [facility] 2021-02-10 00:00:00 2021-02-10 00:00:00 Patient Secure Msg Branden Evansful [facility] [place] TOÑO?[facility] 1.2.840.114 350.1.13.10 4.2.7.2.686 [id number] [facility] 2021-02-10 00:00:00 2021-02-10 00:00:00 Patient Secure Msg Cristina, Brandenful [facility] TOÑO?[facility] MEDICAL OFFICE BUILDING 1.2.840.114 350.1.13.10 4.2.7.2.686 [id number] [facility] 2021-02-10 00:00:00 2021-02-10 00:00:00 Patient Secure Msg Branden Evansful [facility] [place] TOÑO?[facility] MEDICAL OFFICE BUILDING 1.2.840.114 350.1.13.10 4.2.7.2.686 [id number] 044 [id number] [facility] 2021-02-10 00:00:00 2021-02-10 00:00:00 Patient Secure Msg Branden Evansful [facility] [place] TOÑO?[facility] MARYVALEKassandra [facility] MEDICAL OFFICE BUILDING 1.2.840.114 350.1.13.10 4.2.7.2.686 [id number] [facility] 2021-02-09 13:40:00 2021-02-09 23:59:00 Hospital Encounter Branden Evansful A [facility] Toño?[facility] Medical Office Building 1.2.840.114 350.1.13.10 4.2.7.2.686 [id number] [facility] 2021-02-09 13:49:05 2021-02-09 14:04:05 Radiation Oncology Manager Visit Lab, Filippo Shirley Branden Evansful A [facility] Building 1..840.114 350.1.13.10 4.2.7.2.686 [id number] [facility] 2021-02-09 12:23:13 2021-02-09 13:47:12 Office Visit Claudette Evans [facility] Building 1.840.114 350.1.13.10 4.2.7.2.686 [id number] [facility] 2021-02-09 13:00:00 2021-02-09 13:00:00 Outpatient R CRISTINACARMELINA SINGHRICO [facility] [id number] [facility] 2021-02-09 00:00:00 2021-02-09 00:00:00 Patient Secure Msg Doctor Unassigned, Jay [facility] 1.840.114 350.1.13.10 4.2.7.2.686 [id number] [facility] 2021-02-08 10:20:00 2021-02-08 10:20:00 Outpatient R ADITYA MEEKS STRAHIL [facility] [id number] [facility] 2021-02-07 00:00:00 2021-02-07 00:00:00 Patient Secure Msg Claudette Evans [facility] BU[facility] 1..840.114 350.1.13.10 4.2.7.2.686 [id number] [facility] 2021-02-02 10:30:00 2021-02-02 10:30:00 Outpatient R SKYLAR GROVES [facility] [id number] [facility] 2021-02-02 00:00:00 2021-02-02 00:00:00 Telephone Claudette Evans [facility] Building 1..840.114 350.1.13.10 4.2.7.2.686 [id number] [id number] [facility] 2021-02-01 08:30:00 2021-02-01 08:30:00 Outpatient SKYLAR CEBALLOS [facility] [id number] [facility] 2021-01-31 18:44:04 2021-01-31 19:41:26 [facility] Medical Office Building 1..840.114 350.1.13.10 4.2.7.2.686 [id number] [facility] 2021-01-31 19:00:00 2021-01-31 19:00:00 Outpatient R FLACO BOYD [facility] [id number] [facility] 2021-01-31 00:00:00 2021-01-31 00:00:00 Telephone Claudette Evans [facility] Toño?[facility] Medical [facility] Building 1..840.114 350.1.13.10 4.2.7.2.686 [id number] [facility] 2021-01-31 00:00:00 2021-01-31 00:00:00 Patient Secure Msg Cristina Carmelinarico [facility] TOÑO?[facility] MEDICAL OFFICE BUILDING 1..840.114 350.1.13.10 4.2.7.2.686 [id number] [id number] [facility] 2021-01-30 00:00:00 2021-01-30 00:00:00 Telephone Rad Serra [facility] Edna Huynhpending [facility] Building 1..840.114 350.1.13.10 4.2.7.2.686 [id number] [facility] 2021-01-30 00:00:00 2021-01-30 00:00:00 Patient Secure Msg Claudette Evans [facility] OFFICE BUILDING ONE 1.2.840.114 350.1.13.10 4.2.7.2.686 [id number] [facility] 2021-01-26 14:00:00 2021-01-26 14:00:00 Outpatient R RAD SERRA [facility] [id number] [facility] 2021-01-26 00:00:00 2021-01-26 00:00:00 Patient Secure Msg Skylar Groves [facility] TOÑO?[facility] OFFICE BUILDING 1.2.840.114 350.1.13.10 4.2.7.2.686 [id number] [facility] 2021-01-25 15:00:00 2021-01-25 15:00:00 Outpatient R [facility] [id number] [facility] 2021-01-21 00:00:00 2021-01-21 00:00:00 Patient Secure Msg Skylar Groves [facility] TOÑO?[facility] MEDICAL OFFICE BUILDING 1.2.840.114 350.1.13.10 4.2.7.2.686 [id number] [id number] [facility] 2021-01-20 16:51:22 2021-01-20 17:12:41 Telemedici ne Visit Skylar Groves [facility] Toño?[facility] Medical Office Building 1.2.840.114 350.1.13.10 4.2.7.2.686 [id number] [facility] 2021-01-20 16:30:00 2021-01-20 16:30:00 Outpatient R SKYLAR GROVES [facility] [id number] [facility] 2021-01-19 10:15:00 2021-01-19 10:15:00 Outpatient R KAYLEY GARCÍA [facility] [id number] [facility] 2021-01-14 00:00:00 2021-01-14 00:00:00 Case Management Venkat Kassandra Dailey [facility] 1..114 350.1.13.10 4.2.7.2.686 [id number] [facility] 2021-01-14 00:00:00 2021-01-14 00:00:00 Patient Secure Msg Doctor Unassigned, Jay [facility] 1.20.114 350.1.13.10 4.2.7.2.686 [id number] [id number] [facility] 2021-01-12 16:10:00 2021-01-12 19:45:00 Emergency Karin Matthews [facility] 1.0.114 350.1.13.10 4.2.7.2.686 [id number] [id number] [facility] 2021-01-12 15:20:00 2021-01-12 15:20:00 Outpatient R ILEANA MEDRANO [facility] [id number] [facility] 2021-01-12 14:46:57 2021-01-12 15:06:57 Urgent Care Thony Johnson, [facility] Medical Office Building 1.114 350.1.13.10 4.2.7.2.686 [id number] [facility] 2020-12-26 15:30:00 2020-12-26 16:13:32 Outpatient R RAD SERRA [facility] [id number] [facility] 2020-12-26 15:30:00 2020-12-26 16:13:32 Office Visit Rad Serra [facility] PROFESSIO NAL BUILDING 1.114 350.1.13.10 4.2.7.2.686 [id number] [facility] 2020-12-26 15:00:32 2020-12-26 16:13:32 Office Visit Rad Serra [facility] Building 1.2.840.114 350.1.13.10 4.2.7.2.686 [id number] [facility] 2020-12-26 15:30:00 2020-12-26 15:30:00 Outpatient R RAD SERRA [facility] [id number] [facility] 2020-11-29 00:00:00 2020-11-29 00:00:00 Patient Secure Msg Rad Serra [facility] BUILDING 1.2.840.114 350.1.13.10 4.2.7.2.686 [id number] [facility] 2020-11-22 11:00:00 2020-11-22 11:00:00 Outpatient R CELINA MIXON [facility] [id number] [facility] 2020-11-10 18:42:46 2020-11-10 19:53:43 Urgent Care Dennis Alissa [facility] Office Building One 1.2.840.114 350.1.13.10 4.2.7.2.686 [id number] 2020-11-10 19:00:00 2020-11-10 19:00:00 Outpatient R [facility] [id number] [facility] 2020-10-31 18:52:00 2020-10-31 22:15:00 Emergency Kaycee Méndez [facility] 1..840.114 350.1.13.10 4.2.7.2.686 [id number] 2020-10-31 19:00:00 2020-10-31 19:00:00 Outpatient R CARI KAUR [facility] [id number] [facility] 2020-10-31 00:00:00 2020-10-31 00:00:00 Orders Only Doctor Unassigned, Jay [facility] 1.2.840.114 350.1.13.10 4.2.7.2.686 [id number] 2020-10-20 14:02:00 2020-10-20 17:13:00 Emergency Kaycee Méndez [facility] 1.2.840.114 350.1.13.10 4.2.7.2.686 [id number] 2020-10-18 00:00:00 2020-10-18 00:00:00 Patient Secure Msg Prasanna Vargas [facility] BUILDING 1.2.840.114 350.1.13.10 4.2.7.2.686 [id number] 134 [id number] [facility] 2020-10-14 10:00:00 2020-10-14 23:59:00 Hospital Encounter Prasanna Vargas [facility] 1.2.840.114 350.1.13.10 4.2.7.2.686 [id number] 2020-10-14 13:30:00 2020-10-14 13:30:00 Outpatient CELINA STONE [facility] [id number] [facility] 2020-10-11 00:00:00 2020-10-11 00:00:00 Patient Secure Msg Prasanna Vargas [facility] PROFESSIO NAL BUILDING 1.2.840.114 350.1.13.10 4.2.7.2.686 [id number] [facility] 2020-10-11 00:00:00 2020-10-11 00:00:00 Patient Secure Msg Prasanna Vargas [facility] PROFESSIO NAL BUILDING 1.2.840.114 350.1.13.10 4.2.7.2.686 [id number] 134 [id number] [facility] 2020-10-09 12:00:00 2020-10-09 15:57:00 Emergency Anna Kim [facility] 1.2.840.114 350.1.13.10 4.2.7.2.686 [id number] 2020-10-07 00:00:00 2020-10-07 00:00:00 Patient Secure Msg [facility] 1.2.840.114 350.1.13.10 4.2.7.2.686 [id number] 134 [id number] [facility] 2020-10-07 00:00:00 2020-10-07 00:00:00 Patient Secure g [facility]asanna [facility] 1.2.840.114 350.1.13.10 4.2.7.2.686 [id number] 134 [id number] [facility] 2020-10-07 00:00:00 2020-10-07 00:00:00 Patient Secure Msg Prasanna Vargas [facility] PROFESSIO NAL BUILDING 1.2.840.114 350.1.13.10 4.2.7.2.686 [id number] 134 [id number] [facility] 2020-10-07 00:00:00 2020-10-07 00:00:00 Patient Secure Msg Prasanna Vargas [facility] PROFESSIO NAL BUILDING 1.2.840.114 350.1.13.10 4.2.7.2.686 [id number] 134 [id number] [facility] 2020-10-07 00:00:00 2020-10-07 00:00:00 Patient Secure Msg Prasanna Vargas [facility] PROFESSIO NAL BUILDING 1.2.840.114 350.1.13.10 4.2.7.2.686 [id number] 134 [id number] [facility] 2020-10-07 00:00:00 2020-10-07 00:00:00 Patient Secure Msg Prasanna [facility]argas [facility] BU[facility] 1.2.840.114 350.1.13.10 4.2.7.2.686 [id number] 134 [id number] [facility] 2020-10-07 00:00:00 2020-10-07 00:00:00 Patient Secure Msg Prasanna [facility]argas [facility] 1.2.840.114 350.1.13.10 4.2.7.2.686 [id number] 134 [id number] [facility] 2020-10-06 08:53:00 2020-10-06 09:46:44 Office Visit Prasanna Vargas [facility] Building 1.2.840.114 350.1.13.10 4.2.7.2.686 [id number] 2020-10-06 09:30:00 2020-10-06 09:30:00 Outpatient R PRSAANNA VARGAS [facility] [id number] [facility] 2020-10-04 14:00:00 2020-10-04 14:00:00 Outpatient CELINA STONE [facility] [id number] [facility] 2020-09-30 10:30:00 2020-09-30 10:30:00 Outpatient CELINA STONE [facility] [id number] [facility] 2020-09-29 13:45:00 2020-09-29 13:45:00 Outpatient PREET KRISHNA [facility] [id number] [facility] 2020-09-06 15:30:00 2020-09-06 15:30:00 Outpatient R PRASANNA VARGAS [facility] [id number] [facility] 2020-09-05 00:00:00 2020-09-05 00:00:00 Patient Secure Msg Prasanna Vargas [facility] PROFESSIO NAL BUILDING 1.2.840.114 350.1.13.10 4.2.7.2.686 [id number] [facility] 2020-09-02 15:40:00 2020-09-02 15:40:00 Outpatient DARRION QUIROZ HOWARD [facility] [id number] [facility] 2020-08-31 10:30:00 2020-08-31 10:30:00 Outpatient RAD MATAMOROS [facility] [id number] [facility] 2020-08-31 00:00:00 2020-08-31 00:00:00 Patient Secure [facility] 1.2.840.114 350.1.13.10 4.2.7.2.686 [id number] [facility] 2020-08-18 09:30:00 2020-08-18 09:30:00 Outpatient PRASANNA LOOMIS [facility] [id number] [facility] 2020-08-11 13:30:00 2020-08-11 13:30:00 Outpatient Farzana VARGASPRASANNA [facility] [id number] [facility] 2020-08-04 14:00:00 2020-08-04 14:00:00 Outpatient EDER RENEE [facility] [id number] [facility] 2020-07-28 10:30:00 2020-07-28 10:30:00 Outpatient RAD MATAMOROS [facility] [id number] [facility] 2020-06-30 16:15:00 2020-06-30 16:15:00 Outpatient CLAUDETTE CEDILLO [facility] [id number] [facility] 2020-06-17 15:00:00 2020-06-17 15:00:00 Outpatient DARRION QUIROZ [facility] [id number] [facility] 2020-06-16 15:30:00 2020-06-16 15:30:00 Outpatient R RAD SERRA [facility] [id number] [facility] 2020-06-09 12:30:00 2020-06-09 12:30:00 Outpatient R NI DISLA [facility] [id number] [facility] 2020-06-08 08:00:00 2020-06-08 08:00:00 Outpatient R NI DISLA [facility] [id number] [facility] 2020-06-02 09:00:00 2020-06-02 09:00:00 Outpatient R RAD SERRA [facility] [id number] [facility] 2020-05-28 10:00:00 2020-05-28 10:00:00 Outpatient R CARI KAUR [facility] [id number] [facility] 2020-05-26 00:00:00 2020-05-26 00:00:00 Patient Secure Msg Claudette Evans [facility] ONE [id number] [facility] 2020-05-24 10:00:00 2020-05-24 10:00:00 Outpatient NI YUNG [facility] [id number] [facility] 2020-05-24 00:00:00 2020-05-24 00:00:00 Patient Secure Msg Doctor Unassigned, Jay [facility] BUILD[facility] [id number] [facility] 2020-05-19 16:30:00 2020-05-19 16:30:00 Outpatient R OSITO HITCHCOCK [facility] [id number] [facility] 2020-05-17 13:00:00 2020-05-17 13:00:00 Outpatient DARRION QUIROZ [facility] [id number] [facility] 2020-05-16 16:00:00 2020-05-16 16:00:00 Outpatient CARMELINA CEDILLOTAINABONNIE [facility] [id number] [facility] 2020-05-09 00:00:00 2020-05-09 00:00:00 Patient Secure Claudette Hinds [facility] ONE ..840.114 [id number] [id number] [facility] 2020-05-08 10:24:00 2020-05-08 13:03:00 Emergency X AN GARVINALA [facility] ERT [id number] [facility] 2020-05-03 15:00:00 2020-05-03 15:00:00 Outpatient CARMELINA CEDILLOBONNIE [facility] [id number] [facility] 2020-04-30 11:14:00 2020-05-01 15:50:00 Outpatient X RODRIGUEZ HOFF [facility] [id number] [facility] 2020-04-30 10:20:00 2020-04-30 10:20:00 Outpatient ROSALES KRISHNA [facility] [id number] [facility] 2020-04-30 10:15:00 2020-04-30 10:15:00 Outpatient ROSALES KRISHNA [facility] [id number] [facility] 2020-04-29 00:00:00 2020-04-29 00:00:00 Patient Secure Osito Hitchcock [facility] [id number] [id number] [facility] 2020-04-28 14:00:00 2020-04-28 14:00:00 Outpatient OSITO AMARO [facility] [id number] [facility] 2020-04-25 16:15:00 2020-04-25 16:15:00 Outpatient R CRISTINACARMELINARICO [facility] [id number] [facility] 2020-04-22 00:00:00 2020-04-22 00:00:00 Patient Secure Eder Miner [facility] LULU BISHOP [facility] 1.2.840.114 350.1.13.10 4.2.7.2.686 [id number] [facility] 2020-04-18 10:00:00 2020-04-18 10:00:00 Outpatient OSITO AMARO [facility] [id number] [facility] 2020-04-15 10:30:00 2020-04-15 10:30:00 Outpatient R RAD SERRA [facility] [id number] [facility] 2020-04-12 13:38:00 2020-04-13 16:25:00 Outpatient MARICRUZ TOUSSAINT [facility] [id number] [facility] 2020-03-17 16:15:00 2020-03-17 16:15:00 Outpatient TETO BRANTLEY [facility] [id number] [facility] 2020-03-04 00:00:00 2020-03-04 00:00:00 Heaven Barnessir [facility] 1.2.840.114 350.1.13.10 4.2.7.2.686 [id number] [facility] [id number] 2020-02-25 16:00:00 2020-02-25 16:00:00 Outpatient R OSITO HITCHCOCK [facility] [id number] [facility] 2020 14:00:00 2020 14:00:00 Outpatient TETO BRANTLEY [facility] [id number] [facility] 2020-02-08 10:30:00 2020-02-08 10:30:00 Outpatient PRASANNA LOOMIS [facility] [id number] [facility] 2020-02-05 00:00:00 2020-02-05 00:00:00 Patient Secure Msg Prasanna Vargas [facility] 1.2.840.114 350.1.13.10 4.2.7.2.686 [id number] [facility] 2020-02-04 13:30:00 2020-02-04 13:30:00 Outpatient R JACK, OSITO [facility] [id number] [facility] 2020-01-23 10:15:00 2020-01-23 10:15:00 Outpatient R [facility] [id number] [facility] 2020-01-21 13:00:00 2020-01-21 13:00:00 Outpatient R JACK, OSITO [facility] [id number] [facility] 2020-01-14 16:00:00 2020-01-14 16:00:00 Outpatient R JACK, OSITO [facility] [id number] [facility] 2020-01-05 13:45:00 2020-01-05 13:45:00 Outpatient R PRASANNA VARGAS [facility] [id number] [facility] 2020-01-05 00:00:00 2020-01-05 00:00:00 Patient Secure Msg Prasanna Vargas [facility] 1.2.840.114 350.1.13.10 4.2.7.2.686 [id number] [facility] 2019-12-03 10:30:00 2019-12-03 10:30:00 Outpatient R CRICKET TAYLOR [facility] [id number] [facility] 2019-11-27 11:00:00 2019-11-27 11:00:00 Outpatient R TETO CARNES [facility] [id number] [facility] 2019-11-26 00:00:00 2019-11-26 00:00:00 Patient Secure Msg Doctor Unassigned, Jay [facility] 1.2.840.114 350.1.13.10 4.2.7.2.686 [id number] [facility] 2019-11-25 08:00:00 2019-11-25 08:00:00 Outpatient R TETO CARNES [facility] [id number] [facility] 2019-11-23 00:00:00 2019-11-23 00:00:00 Patient Secure Msg Doctor Unassigned, Jay [facility] 1.2.840.114 350.1.13.10 4.2.7.2.686 [id number] [facility] 2019-11-18 10:00:00 2019-11-18 10:00:00 Outpatient TETO BRANTLEY [facility] [id number] [facility] 2019-11-17 00:00:00 2019-11-17 00:00:00 Patient Secure Msg Doctor Unassigned, Jay [facility] 1.2.840.114 350.1.13.10 4.2.7.2.686 [id number] [facility] 2019-11-13 00:00:00 2019-11-13 00:00:00 Patient Secure Msg Prasanna Vargas Jm [facility] 1.2.840.114 350.1.13.10 4.2.7.2.686 [id number] [facility] 2019-09-02 11:00:00 2019-09-02 11:00:00 Outpatient R CRICKET TAYLOR [facility] [id number] [facility] 2019-08-14 10:15:00 2019-08-14 10:15:00 Outpatient R TETO CARNES [facility] [id number] [facility] 2019-08-13 11:00:00 2019-08-13 11:00:00 Outpatient R CRICKET TAYLOR [facility] [id number] [facility] 2019-08-12 09:00:00 2019-08-12 09:00:00 Outpatient R [facility] [id number] [facility] 2019-07-20 16:06:00 2019-07-20 16:06:00 Outpatient P PRASANNA VARGAS [facility] CH[facility] [id number] [facility] 2019-07-20 08:15:00 2019-07-20 08:15:00 Outpatient R CRICKET TAYLOR [facility] [id number] [facility] 2019-07-13 08:00:00 2019-07-13 08:00:00 Outpatient R CRICKET TAYLOR [facility] [id number] [facility] 2019-07-12 13:39:00 2019-07-12 13:39:00 Outpatient P PRASANNA VARGAS [facility] [id number] [facility] 2019-07-06 13:00:00 2019-07-06 13:00:00 [facility] [id number] 2019-06-13 10:40:46 2019-06-13 12:35:00 Emergency X SARAHI AVILA [facility] ERT [id number] [facility] 2019-05-13 23:07:00 2019-05-14 09:15:00 Outpatient P PRASANNA VARGAS [facility] [id number] [facility] Results Test Description Test Time Test Comments Results Result Co mments Source [facility] 16:39:24* Test Item Value Reference Range Interpretation Comme nts LIPASE (test code = 9718472547) 40 U/L 0-220 Lab Interpretation (test cod e = 52697-6) [facility] [id number] 16:27:28EXAM: CT ABDOMEN PELVIS W CONTRAST HISTORY: [...] hypodensity isseen within the right gluteal soft tissue.[facility] CBC WITH [id number] 16:14:18* Test Item Value Reference Range Interpretation Comme nts WBC (test code = 6690-2) 6.32 See_Comment [Common Sensing] The system which generated this result transmitted reference range: 4.30 - 11.10 10*3/?L. The reference range was not used to interpret this result as normal/abnormal. RBC (test code = 789-8) 4.61 See_Comment [Common Sensing] The system which generated this result transmitted [...] 34.1 g/dL 31.6-35.1 RDW-SD (test code = 10183-3) 42.0 fL 39.0-49.9 RDW-CV (test code = 788-0) 13.0 % 12.0-15.5 PLT (test code = 777-3) 369 See_Comment H [Automated messa ge] The system which generated this result transmitted reference range: 166 - 358 10*3/?L. The reference range was not used to interpret this result as normal/abnormal. MPV (test code = 51763-2) 9.9 fL 9.5-12.9 NRBC/100 WBC (test code = 4041830836) 0.0 See_Comment [Automated Lean Train ssage] The system which generated this result transmitted reference range: 0.0 - 10.0 /100 WBCs. The reference range was not used to interpret this result as normal/abnormal. NRBC x10^3 (test code = 5686040733) See_Comment [Automated emoquoa ge] The system which generated this result transmitted reference range: 10*3/?L. The reference range was not used to interpret this result as normal/abnormal. GRAN MAT (NEUT) % (test code = 770-8) 64.8 % IMM GRAN % (test code = 5271201707) 0.50 % LYMPH % (test code = 736-9) 25.3 % MONO % (test code = 5905-5) 4.1 % EOS % (test code = 713-8) 4.7 % BASO % (test code = 706-2) 0.6 % GRAN MAT x10^3(ANC) (test code = 3235656382) 4.09 10*3/uL 1.88-7.09 IMM GRAN x10^3 (test code = 7474474259) 0.03 10*3/uL 0.00-0.06 LYMPH x10^3 (test code = 731-0) 1.60 10*3/uL 1.32-3.29 MONO x10^3 (test code = 742-7) 0.26 10*3/uL 0.33-0.92 L EOS x10^3 (test code = 711-2) 0.30 10*3/uL 0.03-0.39 BASO x10^3 (test code = 704-7) 0.04 10*3/uL 0.01-0.07 Lab Interpretation (test code = 76863-3) [facility] [id number] 15:31:00* Test Item Value Reference Range Interpretation Comme nts POCT PREG (test code = 1605) Negative On board controls acceptable with C Line (test code = 3574) Yes POCT PREG LOT # (test code = 3575) [id number] POCT PREG TEST DATE ( test code = 3576) 2024-07-21 Lab Interpretation (test cod e = 46076-7) Normal [facility] WITH [id number] 04:28:47* Test Item Value Reference Range Interpretation Comme nts WBC (test code = 6690-2) 5.45 See_Comment [Automated emoquoa ge] The system which generated this result transmitted reference range: 4.30 - 11.10 10*3/?L. The reference range was not used to interpret this result as normal/abnormal. RBC (test code = 789-8) 4.59 See_Comment [Automated emoquoa ge] The system which generated this result [...] 34.0 g/dL 31.6-35.1 RDW-SD (test code = 19974-8) 40.3 fL 39.0-49.9 RDW-CV (test code = 788-0) 13.1 % 12.0-15.5 PLT (test code = 777-3) 307 See_Comment [Automated messa ge] The system which generated this result transmitted reference range: 166 - 358 10*3/?L. The reference range was not used to interpret this result as normal/abnormal. MPV (test code = 19306-9) 11.0 fL 9.5-12.9 NRBC/100 WBC (test code = 4839686996) 0.0 See_Comment [Automated Lean Train ssage] The system which generated this result transmitted reference range: 0.0 - 10.0 /100 WBCs. The reference range was not used to interpret this result as normal/abnormal. NRBC x10^3 (test code = 7215205038) See_Comment [Automated messa ge] The system which generated this result transmitted reference range: 10*3/?L. The reference range was not used to interpret this result as normal/abnormal. GRAN MAT (NEUT) % (test code = 770-8) 52.0 % IMM GRAN % (test code = 7650036537) 0.20 % LYMPH % (test code = 736-9) 38.0 % MONO % (test code = 5905-5) 4.6 % EOS % (test code = 713-8) 4.6 % BASO % (test code = 706-2) 0.6 % GRAN MAT x10^3(ANC) (test code = 1390461090) 2.84 10*3/uL 1.88-7.09 IMM GRAN x10^3 (test code = 3705729129) 0.00-0.06 LYMPH x10^3 (test code = 731-0) 2.07 10*3/uL 1.32-3.29 MONO x10^3 (test code = 742-7) 0.25 10*3/uL 0.33-0.92 L EOS x10^3 (test code = 711-2) 0.25 10*3/uL 0.03-0.39 BASO x10^3 (test code = 704-7) 0.03 10*3/uL 0.01-0.07 Lab Interpretation (test code = 46592-0) Abnormal [facility]. METABOLIC PANEL (35975)2023-01-12 04:12:43* Test Item Value Reference Range Interpretation Comme nts NA (test code = 4785487014) 137 mmol/L 135-145 K (test code = 7233076444) 3.4 mmol/L 3.5-5.0 L CL (test code = 4649081356) 104 mmol/L 98-108 CO2 TOTAL (test code = 1945397474) 24 mmol/L 23-31 AGAP (test code = 7764435051) 9 2-16 BUN (test code = 2621727613) 2 mg/dL 7-23 L GLUCOSE (test code = 0856801129) 92 mg/dL 70-110 CREATININE (test code = 0361402810) 0.80 mg/dL 0.50-1.04 TOTAL BILI (test code = 0510557306) 0.4 mg/dL 0.1-1.1 CALCIUM (test code = 4910785454) 8.4 mg/dL 8.6-10.6 L T PROTEIN (test code = 8372523586) 6.3 g/dL 6.3-8.2 ALBUMIN (test code = 4956165425) 3.7 g/dL 3.5-5.0 ALK PHOS (test code = 0370985378) 87 U/L 34-122 ALTv (test code = 1742-6) 27 U/L 5-35 AST(SGOT) (test code = 8769642535) 33 U/L 13-40 eGFR (test code = 5290394232) 86.0 mL/min/1.73m2 WESLEY (test code = WESLEY) [...] imaging tests). Lab Interpretation (test code = 51941-5) Abnormal [facility]. METABOLIC PANEL (10431)2023-01-12 04:12:43* Test Item Value Reference Range Interpretation Comme nts NA (test code = 1074854673) 137 mmol/L 135-145 K (test code = 0284353260) 3.4 mmol/L 3.5-5.0 L CL (test code = 5985097227) 104 mmol/L 98-108 CO2 TOTAL (test code = 2623468654) 24 mmol/L 23-31 AGAP (test code = 1787206407) 9 2-16 BUN (test code = 1865952739) 2 mg/dL 7-23 L GLUCOSE (test code = 1460162946) 92 mg/dL 70-110 CREATININE (test code = 9340308264) 0.80 mg/dL 0.50-1.04 TOTAL BILI (test code = 9896763688) 0.4 mg/dL 0.1-1.1 CALCIUM (test code = 5456470734) 8.4 mg/dL 8.6-10.6 L T PROTEIN (test code = 8710391549) 6.3 g/dL 6.3-8.2 ALBUMIN (test code = 4339538685) 3.7 g/dL 3.5-5.0 ALK PHOS (test code = 3082416337) 87 U/L 34-122 ALTv (test code = 1742-6) 27 U/L 5-35 AST(SGOT) (test code = 4053951397) 33 U/L 13-40 eGFR (test code = 7675199726) 86.0 mL/min/1.73m2 WESLEY (test code = WESLEY) [...] imaging tests). Lab Interpretation (test code = 06183-3) Abnormal [facility] (QUANTITATIVE)2023-01-12 04:07:04 BETA HCG<2.39Non- female and male patients: <5 mIU/mL01/11/2023 11:07 PM [facility] Gestational Age ?Range (mIU/mL) 1-10 ?Weeks ?39-61132448-97 Weeks ?60176-15375373-21 Weeks ?1629-56944103-01 Weeks ?6529-436419 Biotin has been reported to cause a negative bias, interpret results relative to patient's use of biotin. Gestational Age ?Range (mIU/mL) 1-10 ?Weeks ?21-70631488-94 Weeks ?63907-13011601-75 Weeks ?3006-41718756-03 Weeks?1531-760011 Biotin has been reported to cause a negative bias, interpret results relative to patient's use of biotin. Gestational Age ?Range (mIU/mL) 1-10 ?Weeks ?37-13733193-77 Weeks ?47042-30348944-14 Weeks ?9305-56937662-71 Weeks ?1531-001875 Biotin has been reported to cause a negative bias, interpretresults relative to patient's use of biotin[facility]-12 04:07:04BETA HCG<2.39Non- female and male patients: <5 mIU/mL01/11/2023 11:07 PM [facility] Gestational Age ?Range (mIU/mL) 1-10 ?Weeks ?47-94443027-79 Weeks ?53537-12236521-74 Weeks ?4240-32386765-51 Weeks ?1531-796781 Biotin has been reported to cause a negative bias, interpret results relative topatient's use of biotin. Gestational Age ?Range (mIU/mL) 1-10 ?Weeks ?10-35178340-23 Weeks ?11978-72297164-28 Weeks ?8774-40686139-81 Weeks?1531-537871 Biotin has been reported to cause a negative bias, interpret results relative to patient's use of biotin. Gestational Age ?Range (mIU/mL) 1-10 ?Weeks ?47-50071696-31 Weeks ?23200-02874751-75 Weeks ?4014-30841217-05 Weeks ?1535-959459 Biotin has been reported to cause a negative bias, interpretresults relative to patient's use of biotin.[facility] 2023-[facility] 03:22:58* Test Item Value Reference Range Interpretation Comme nts LIPASE (test code = 2706652708) 41 U/L 0-220 Lab Interpretation (test cod e = 25297-6) Normal [facility]2023-09-02 03:22:58* Test Item Value Reference Range Interpretation Comme nts LIPASE (test code = 0198730688) 41 U/L 0-220 Lab Interpretation (test cod e = 01682-7) Normal [facility] [id number] 03:02:00* Test Item Value Reference Range Interpretation Comme nts POCT PREG (test code = 1605) Negative On board controls acceptable with C Line (test code = 3574) Yes POCT PREG LOT # (test code = 3575) [id number] POCT PREG TEST DATE ( test code = 3576) 05/15/2024 Lab Interpretation (test cod e = 76085-9) Normal [facility] [id number] 03:02:00* Test Item Value Reference Range Interpretation Comme nts POCT PREG (test code = 1605) Negative On board controls acceptable with C Line (test code = 3574) Yes POCT PREG LOT # (test code = 3575) [id number] POCT PREG TEST DATE ( test code = 3576) 05/15/2024 Lab Interpretation (test cod e = 94994-0) [facility], [id number] 00:23:34* Test Item Value Reference Range Interpretation Comme nts PREG SERUM (test code = 5653922191) Negative WESLEY (test code = WESLEY) Less than 10 IU/L. ?If low titer or ectopic is suspected, resubmit specimen in 48-72 hours. [facility]. METABOLIC PANEL (17063)2022-07-31 23:58:12* Test Item Value Reference Range Interpretation Comme nts NA (test code = 6187528636) 140 mmol/L 135-145 K (test code = 1983576928) 3.6 mmol/L 3.5-5.0 CL (test code = 5745154326) 106 mmol/L 98-108 CO2 TOTAL (test code = 6156573183) 21 mmol/L 23-31 L AGAP (test code = 4768732009) 13 2-16 BUN (test code = 6806904686) 8 mg/dL 7-23 GLUCOSE (test code = 0205816721) 90 mg/dL 70-110 CREATININE (test code = 3793436924) 0.90 mg/dL 0.50-1.04 TOTAL BILI (test code = 2758783822) 0.5 mg/dL 0.1-1.1 CALCIUM (test code = 2817924511) 9.0 mg/dL 8.6-10.6 T PROTEIN (test code = 5895068885) 7.8 g/dL 6.3-8.2 ALBUMIN (test code = 3668432688) 4.6 g/dL 3.5-5.0 ALK PHOS (test code = 6560655417) 63 U/L 34-122 ALTv (test code = 1742-6) 23 U/L 5-35 AST(SGOT) (test code = 4653409266) 27 U/L 13-40 eGFR (test code = 4012113857) 75.1 mL/min/1.73m2 WESLEY (test code = WESLEY) [...] imaging tests). Lab Interpretation (test code = 87484-0) [facility] 23:57:32* Test Item Value Reference Range Interpretation Comme nts LIPASE (test code = 8513028504) 55 U/L 0-220 Lab Interpretation (test cod e = 97503-4) Normal [facility] WITH [id number] 23:47:31* Test Item Value Reference Range Interpretation Comme nts WBC (test code = 6690-2) 5.64 See_Comment [Automated Behalf] The system which generated this result transmitted reference range: 4.30 - 11.10 10*3/?L. The reference range was not used to interpret this result as normal/abnormal. RBC (test code = 789-8) 4.51 See_Comment [Automated emoquoa [employer]] The system which generated this result transmitted [...] 32.6 g/dL 31.6-35.1 RDW-SD (test code = 40651-1) 42.5 fL 39.0-49.9 RDW-CV (test code = 788-0) 13.0 % 12.0-15.5 PLT (test code = 777-3) 339 See_Comment [Automated messa ge] The system which generated this result transmitted reference range: 166 - 358 10*3/?L. The reference range was not used to interpret this result as normal/abnormal. MPV (test code = 83222-6) 9.4 fL 9.5-12.9 L NRBC/100 WBC (test code = 2980753217) 0.0 See_Comment [Automated Lean Train ssage] The system which generated this result transmitted reference range: 0.0 - 10.0 /100 WBCs. The reference range was not used to interpret this result as normal/abnormal. NRBC x10^3 (test code = 9742898959) See_Comment [Automated emoquoa ge] The system which generated this result transmitted reference range: 10*3/?L. The reference range was not used to interpret this result as normal/abnormal. GRAN MAT (NEUT) % (test code = 770-8) 51.2 % IMM GRAN % (test code = 2467988367) 0.20 % LYMPH % (test code = 736-9) 36.5 % MONO % (test code = 5905-5) 5.7 % EOS % (test code = 713-8) 5.9 % BASO % (test code = 706-2) 0.5 % GRAN MAT x10^3(ANC) (test code = 5524968072) 2.89 10*3/uL 1.88-7.09 IMM GRAN x10^3 (test code = 5166493848) 0.00-0.06 LYMPH x10^3 (test code = 731-0) 2.06 10*3/uL 1.32-3.29 MONO x10^3 (test code = 742-7) 0.32 10*3/uL 0.33-0.92 L EOS x10^3 (test code = 711-2) 0.33 10*3/uL 0.03-0.39 BASO x10^3 (test code = 704-7) 0.03 10*3/uL 0.01-0.07 Lab Interpretation (test code = 38690-8) [facility]normal [facility] [id number] 16:14:38* Test Item Value Reference Range Interpretation Comme nts POCT Molecular Strep (test c ode = 61697-5) Negative Negative Lab Interpretation (test cod e = 25327-6) Normal [facility]. METABOLIC PANEL (99681)2022-05-05 19:35:37* Test Item Value Reference Range Interpretation Comme nts NA (test code = 7021395625) 139 mmol/L 135-145 K (test code = 7330141680) 4.4 mmol/L 3.5-5.0 CL (test code = 9445999441) 104 mmol/L 98-108 CO2 TOTAL (test code = 4146154382) 22 mmol/L 23-31 L AGAP (test code = 1028496113) 2-16 BUN (test code = 5988860064) 11 mg/dL 7-23 GLUCOSE (test code = 0547916770) 95 mg/dL 70-110 CREATININE (test code = 3512796389) 0.71 mg/dL 0.50-1.04 TOTAL BILI (test code = 2893405046) 0.4 mg/dL 0.1-1.1 CALCIUM (test code = 7671669288) 9.1 mg/dL 8.6-10.6 T PROTEIN (test code = 8171088336) 7.9 g/dL 6.3-8.2 ALBUMIN (test code = 9192115074) 4.7 g/dL 3.5-5.0 ALK PHOS (test code = 7242702904) 114 U/L 34-122 ALTv (test code = 1742-6) 21 U/L 5-35 AST(SGOT) (test code = 5814522299) 21 U/L 13-40 eGFR (test code = 4875323982) mL/min/1.73m2 WESLEY (test code = WESLEY) Association [...] imaging tests). Lab Interpretation (test code = 15699-0) Abnormal [facility] WITH [id number] 19:25:37* Test Item Value Reference Range Interpretation Comme nts WBC (test code = 6690-2) See_Comment [Automated Behalf] The system which generated this result transmitted reference range: 4.30 - 11.10 10*3/?L. The reference range was not used to interpret this result as normal/abnormal. RBC (test code = 789-8) See_Comment [Automated Behalf] The system which generated this result transmitted [...] 32.9 g/dL 31.6-35.1 RDW-SD (test code = 28340-0) 41.7 fL 39.0-49.9 RDW-CV (test code = 788-0) 12.7 % 12.0-15.5 PLT (test code = 777-3) See_Comment H [Automated messa ge] The system which generated this result transmitted reference range: 166 - 358 10*3/?L. The reference range was not used to interpret this result as normal/abnormal. MPV (test code = 91269-9) 8.8 fL 9.5-12.9 L NRBC/100 WBC (test code = 1257437333) See_Comment [Automated Lean Train ssage] The system which generated this result transmitted reference range: 0.0 - 10.0 /100 WBCs. The reference range was not used to interpret this result as normal/abnormal. NRBC x10^3 (test code = 7005691867) See_Comment [Automated messa ge] The system which generated this result transmitted reference range: 10*3/?L. The reference range was not used to interpret this result as normal/abnormal. GRAN MAT (NEUT) % (test code = 770-8) 56.1 % IMM GRAN % (test code = 2746462617) 0.40 % LYMPH % (test code = 736-9) 29.9 % MONO % (test code = 5905-5) 5.4 % EOS % (test code = 713-8) 7.8 % BASO % (test code = 706-2) 0.4 % GRAN MAT x10^3(ANC) (test code = 8551938997) 3.75 10*3/uL 1.88-7.09 IMM GRAN x10^3 (test code = 6959846513) 0.03 10*3/uL 0.00-0.06 LYMPH x10^3 (test code = 731-0) 2.00 10*3/uL 1.32-3.29 MONO x10^3 (test code = 742-7) 0.36 10*3/uL 0.33-0.92 EOS x10^3 (test code = 711-2) 0.52 10*3/uL 0.03-0.39 H BASO x10^3 (test code = 704-7) 0.03 10*3/uL 0.01-0.07 Lab Interpretation (test code = 63630-1) [facility] [id number] 19:00:00* Test Item Value Reference Range Interpretation Comme nts POCT PREG (test code = 1605) negative On board controls acceptable with C Line (test code = 3574) present POCT PREG LOT # (test code = 3575) [id number] POCT PREG TEST DATE ( test code = 3576) 08-11-2023 Lab Interpretation (test cod e = 91293-3) Normal [facility] WITH [id number] 15:21:11* Test Item Value Reference Range Interpretation Comme nts WBC (test code = 6690-2) See_Comment [Automated emoquoa ge] The system which generated this result transmitted reference range: 4.30 - 11.10 10*3/?L. The reference range was not used to interpret this result as normal/abnormal. RBC (test code = 789-8) See_Comment [Automated emoquoa ge] The system which generated this result [...] 33.0 g/dL 31.6-35.1 RDW-SD (test code = 25141-3) 42.6 fL 39.0-49.9 RDW-CV (test code = 788-0) 12.9 % 12.0-15.5 PLT (test code = 777-3) See_Comment H [Automated messa ge] The system which generated this result transmitted reference range: 166 - 358 10*3/?L. The reference range was not used to interpret this result as normal/abnormal. MPV (test code = 25141-1) 9.1 fL 9.5-12.9 L NRBC/100 WBC (test code = 6118639735) See_Comment [Automated me ssage] The system which generated this result transmitted reference range: 0.0 - 10.0 /100 WBCs. The reference range was not used to interpret this result as normal/abnormal. NRBC x10^3 (test code = 3005230665) See_Comment [Automated messa ge] The system which generated this result transmitted reference range: 10*3/?L. The reference range was not used to interpret this result as normal/abnormal. GRAN MAT (NEUT) % (test code = 770-8) 56.8 % IMM GRAN % (test code = 6381322678) 0.30 % LYMPH % (test code = 736-9) 29.5 % MONO % (test code = 5905-5) 4.3 % EOS % (test code = 713-8) 8.3 % BASO % (test code = 706-2) 0.8 % GRAN MAT x10^3(ANC) (test code = 7344365413) 3.57 10*3/uL 1.88-7.09 IMM GRAN x10^3 (test code = 8960328643) 0.00-0.06 LYMPH x10^3 (test code = 731-0) 1.85 10*3/uL 1.32-3.29 MONO x10^3 (test code = 742-7) 0.27 10*3/uL 0.33-0.92 L EOS x10^3 (test code = 711-2) 0.52 10*3/uL 0.03-0.39 H BASO x10^3 (test code = 704-7) 0.05 10*3/uL 0.01-0.07 Lab Interpretation (test code = 97590-6) Abnormal [facility]. METABOLIC PANEL (61681)2022-04-26 15:12:13* Test Item Value Reference Range Interpretation Comme nts NA (test code = 5902154523) 141 mmol/L 135-145 K (test code = 0133442261) 3.4 mmol/L 3.5-5.0 L CL (test code = 0319407114) 104 mmol/L 98-108 CO2 TOTAL (test code = 8443965772) 23 mmol/L 23-31 AGAP (test code = 8735931698) 2-16 BUN (test code = 5475704482) 9 mg/dL 7-23 GLUCOSE (test code = 2094571420) 101 mg/dL 70-110 CREATININE (test code = 6179615936) 0.82 mg/dL 0.50-1.04 TOTAL BILI (test code = 6282883424) 0.7 mg/dL 0.1-1.1 CALCIUM (test code = 8174311503) 9.3 mg/dL 8.6-10.6 T PROTEIN (test code = 8687690201) 8.1 g/dL 6.3-8.2 ALBUMIN (test code = 6238575018) 4.7 g/dL 3.5-5.0 ALK PHOS (test code = 3734200704) 108 U/L 34-122 ALTv (test code = 1742-6) 24 U/L 5-35 AST(SGOT) (test code = 8636593211) 49 U/L 13-40 H eGFR (test code = 7422239969) mL/min/1.73m2 WESLEY (test code = WESLEY) Association [...] imaging tests). Lab Interpretation (test code = 09893-2) Abnormal [facility] [id number] 14:45:00* Test Item Value Reference Range Interpretation Comme nts POCT PREG (test code = 1605) negative On board controls acceptable with C Line (test code = 3574) present POCT PREG LOT # (test code = 3575) [id number] POCT PREG TEST DATE ( test code = 3576) 08/11/2023 Lab Interpretation (test cod e = 09688-3) Normal [facility] [id number] 01:22:00* Test Item Value Reference Range Interpretation Comme nts POCT PREG (test code = 1605) Negative On board controls acceptable with C Line (test code = 3574) Present POCT PREG LOT # (test code = 3575) [id number] POCT PREG TEST DATE ( test code = 3576) 08-11-2023 Lab Interpretation (test cod e = 89693-9) Normal [facility] METABOLIC PANEL (NA, K, CL, CO2, GLUCOSE, BUN, CREATININE, CA)2022-04-07 23:01:10* Test Item Value Reference Range Interpretation Comme nts NA (test code = 9664707265) 138 mmol/L 135-145 K (test code = 7007049317) 4.3 mmol/L 3.5-5.0 CL (test code = 5497017743) 107 mmol/L 98-108 CO2 TOTAL (test code = 0681056547) 20 mmol/L 23-31 L AGAP (test code = 9340095192) 2-16 BUN (test code = 6315416510) 9 mg/dL 7-23 GLUCOSE (test code = 0749937620) 204 mg/dL 70-110 H CREATININE (test code = 0638023554) 0.74 mg/dL 0.50-1.04 CALCIUM (test code = 4448020098) 9.1 mg/dL 8.6-10.6 eGFR (test code = 2827537887) mL/min/1.73m2 WESLEY (test code = WESLEY) Association [...] imaging tests). Lab Interpretation (test code = 77625-9) Abnormal [facility] WITH [id number] 22:57:34* Test Item Value Reference Range Interpretation Comme nts WBC (test code = 6690-2) See_Comment [Automated Behalf] The system which generated this result transmitted [...] 33.5 g/dL 31.6-35.1 RDW-SD (test code = 25341-3) 42.9 fL 39.0-49.9 RDW-CV (test code = 788-0) 13.4 % 12.0-15.5 PLT (test code = 777-3) See_Comment H [Automated emoquoa ge] The system which generated this result transmitted reference range: 166 - 358 10*3/?L. The reference range was not used to interpret this result as normal/abnormal. MPV (test code = 62807-2) 8.9 fL 9.5-12.9 L NRBC/100 WBC (test code = 6153951874) See_Comment [Automated [employer] ssage] The system which generated this result transmitted reference range: 0.0 - 10.0 /100 WBCs. The reference range was not used to interpret this result as normal/abnormal. NRBC x10^3 (test code = 6538167349) See_Comment [Automated emoquoa ge] The system which generated this result transmitted reference range: 10*3/?L. The reference range was not used to interpret this result as normal/abnormal. GRAN MAT (NEUT) % (test code = 770-8) 88.7 % IMM GRAN % (test code = 1361845404) 0.70 % LYMPH % (test code = 736-9) 9.4 % MONO % (test code = 5905-5) 0.9 % EOS % (test code = 713-8) 0.1 % BASO % (test code = 706-2) 0.2 % GRAN MAT x10^3(ANC) (test code = 7471494748) 7.81 10*3/uL 1.88-7.09 H IMM GRAN x10^3 (test code = 9611937271) 0.06 10*3/uL 0.00-0.06 LYMPH x10^3 (test code = 731-0) 0.83 10*3/uL 1.32-3.29 L MONO x10^3 (test code = 742-7) 0.08 10*3/uL 0.33-0.92 L EOS x10^3 (test code = 711-2) 0.03-0.39 L BASO x10^3 (test code = 704-7) 0.01-0.07 Lab Interpretation (test code = 06440-7) Abnormal [facility] [id number] 14:07:00* Test Item Value Reference Range Interpretation Comme nts POCT PREG (test code = 1605) negative On board controls acceptable with C Line (test code = 3574) present POCT PREG LOT # (test code = 3575) [id number] POCT PREG TEST DATE ( test code = 3576) 08/11/2023 Lab Interpretation (test cod e = 17925-9) Normal [facility] [id number] 13:52:00* Test Item Value Reference Range Interpretation Comme nts POCT PREG (test code = 1605) negative On board controls acceptable with C Line (test code = 3574) present Lab Interpretation (test cod e = 96468-2) Normal [facility] [id number] 14:59:00* Test Item Value Reference Range Interpretation Comme nts POCT PREG (test code = 1605) negative On board controls acceptable with C Line (test code = 3574) yes POCT PREG LOT # (test code = 3575) [id number] POCT PREG TEST DATE ( test code = 3576) 07/11/2023 Lab Interpretation (test cod e = 81458-9) Normal [facility]. METABOLIC PANEL (49079)2022 17:51:43* Test Item Value Reference Range Interpretation Comme nts NA (test code = 8619242379) 139 mmol/L 135-145 K (test code = 1917237242) 4.1 mmol/L 3.5-5 CL (test code = 9932068367) 104 mmol/L 98-108 CO2 TOTAL (test code = 8633301287) 22 mmol/L 23-31 L AGAP (test code = 2709824675) 2-16 BUN (test code = 9955009434) 7 mg/dL 7-23 GLUCOSE (test code = 9084871868) 114 mg/dL 70-110 H CREATININE (test code = 6026251912) 0.69 mg/dL 0.5-1.04 TOTAL BILI (test code = 1118004927) 0.4 mg/dL 0.1-1.1 CALCIUM (test code = 8283136849) 9.7 mg/dL 8.6-10.6 T PROTEIN (test code = 4732109750) 7.2 g/dL 6.3-8.2 ALBUMIN (test code = 9081837142) 4.6 g/dL 3.5-5 ALK PHOS (test code = 5561936395) 65 U/L 34-122 ALTv (test code = 1742-6) 15 U/L 5-35 AST(SGOT) (test code = 1102723700) 19 U/L 13-40 eGFR (test code = 8251714911) mL/min/1.73m2 WESLEY (test code = WESLEY) Association [...] imaging tests). Lab Interpretation (test code = 95981-1) Abnormal [facility] WITH [id number] 17:40:24* Test Item Value Reference Range Interpretation Comme nts WBC (test code = 6690-2) See_Comment [Automated Behalf] The system which generated this result transmitted reference range: 4.30 - 11.10 10*3/?L. The reference range was not used to interpret this result as normal/abnormal. RBC (test code = 789-8) See_Comment [Automated Behalf] The system which generated this result transmitted [...] 33.3 g/dL 31.6-35.1 RDW-SD (test code = 14795-5) 43.1 fL 39-49.9 RDW-CV (test code = 788-0) 13.2 % 12-15.5 PLT (test code = 777-3) See_Comment [Automated emoquoa [employer]] The system which generated this result transmitted reference range: 166 - 358 10*3/?L. The reference range was not used to interpret this result as normal/abnormal. MPV (test code = 63680-7) 9.5 fL 9.5-12.9 NRBC/100 WBC (test code = 3626137123) See_Comment [Automated me ssage] The system which generated this result transmitted reference range: 0.0 - 10.0 /100 WBCs. The reference range was not used to interpret this result as normal/abnormal. NRBC x10^3 (test code = 2316640253) See_Comment [Automated messa ge] The system which generated this result transmitted reference range: 10*3/?L. The reference range was not used to interpret this result as normal/abnormal. GRAN MAT (NEUT) % (test code = 770-8) 57.8 % IMM GRAN % (test code = 7462227593) 0.20 % LYMPH % (test code = 736-9) 30.8 % MONO % (test code = 5905-5) 5.1 % EOS % (test code = 713-8) 5.6 % BASO % (test code = 706-2) 0.5 % GRAN MAT x10^3(ANC) (test code = 8139478766) 3.61 10*3/uL 1.88-7.09 IMM GRAN x10^3 (test code = 3623847380) 0-0.06 LYMPH x10^3 (test code = 731-0) 1.92 10*3/uL 1.32-3.29 MONO x10^3 (test code = 742-7) 0.32 10*3/uL 0.33-0.92 L EOS x10^3 (test code = 711-2) 0.35 10*3/uL 0.03-0.39 BASO x10^3 (test code = 704-7) 0.03 10*3/uL 0.01-0.07 Lab Interpretation (test code = 83533-3) [id number] 17:27:00* Test Item Value Reference Range Interpretation Comme nts POCT PREG (test code = 1605) negative On board controls acceptable with C Line (test code = 3574) present POCT PREG LOT # (test code = 3575) [id number] POCT PREG TEST DATE ( test code = 357) Lab Interpretation (test cod e = 61213-9) [facility] 12:45:21* Test Item Value Reference Range Interpretation Comme nts LIPASE (test code = 0519082577) 41 U/L 0-220 Lab Interpretation (test cod e = 97443-9) [facility] [id number] 10:57:00* Test Item Value Reference Range Interpretation Comme nts POCT PREG (test code = 1605) Negative On board controls acceptable with C Line (test code = 3574) Present POCT PREG LOT # (test code = 3575) [id number] POCT PREG TEST DATE ( test code = 3576) 03/12/2023 Lab Interpretation (test cod e = 41852-1) Normal [facility] METABOLIC PANEL (NA, K, CL, CO2, GLUCOSE, BUN, CREATININE, CA)2022-01-18 10:56:51* Test Item Value Reference Range Interpretation Comme nts NA (test code = 8046880038) 137 mmol/L 135-145 K (test code = 9002081316) 4.6 mmol/L 3.5-5 Slight hemolysis CL (test code = 5979871619) 108 mmol/L 98-108 CO2 TOTAL (test code = 0423469891) 22 mmol/L 23-31 L AGAP (test code = 6027413152) 2-16 BUN (test code = 1079718794) 11 mg/dL 7-23 Slight hemolysis GLUCOSE (test code = 2892589880) 83 mg/dL 70-110 CREATININE (test code = 9419680115) 0.68 mg/dL 0.5-1.04 CALCIUM (test code = 9583183997) 8.8 mg/dL 8.6-10.6 eGFR (test code = 6369217873) mL/min/1.73m2 WESLEY (test code = WESLEY) Association [...] imaging tests). Lab Interpretation (test code = 60579-1) [facility] (ALB,T.PRO,BILI T,BU/BC,ALT,AST,ALK PHOS)2022-01-18 10:56:51* Test Item Value Reference Range Interpretation Comme nts TOTAL BILI (test code = 6444091051) 0.6 mg/dL 0.1-1.1 BILI UNCON (test code = 7394309333) 0.1 mg/dL 0.1-1.1 BILI CONJ (test code = 6546473579) 0.0 mg/dL 0-0.3 T PROTEIN (test code = 6401725242) 8.6 g/dL 6.3-8.2 H ALBUMIN (test code = 4457740787) 5.1 g/dL 3.5-5 H ALK PHOS (test code = 8651043770) 79 U/L 34-122 ALTv (test code = 1742-6) 117 U/L 5-35 H AST(SGOT) (test code = 6598378154) 163 U/L 13-40 H Lab Interpretation (test cod e = 01722-9) [facility], [id number] 10:54:25* Test Item Value Reference Range Interpretation Comme nts PREG SERUM (test code = 8987098912) Negative WESLEY (test code = WESLEY) Less than 10 IU/L. ?If low titer or ectopic is suspected, resubmit specimen in 48-72 hours. [facility] WITH [id number] 10:40:49* Test Item Value Reference Range Interpretation [...] 33.6 g/dL 31.6-35.1 RDW-SD (test code = 91209-3) 45.3 fL 39-49.9 RDW-CV (test code = 788-0) 14.5 % 12-15.5 PLT (test code = 777-3) See_Comment [Automated messa ge] The system which generated this result transmitted reference range: 166 - 358 10*3/?L. The reference range was not used to interpret this result as normal/abnormal. MPV (test code = 20256-1) 9.5 fL 9.5-12.9 NRBC/100 WBC (test code = 4518718766) See_Comment [Automated [employer] ssage] The system which generated this result transmitted reference range: 0.0 - 10.0 /100 WBCs. The reference range was not used to interpret this result as normal/abnormal. NRBC x10^3 (test code = 6402299968) See_Comment [Automated messa ge] The system which generated this result transmitted reference range: 10*3/?L. The reference range was not used to interpret this result as normal/abnormal. GRAN MAT (NEUT) % (test code = 770-8) 47.6 % IMM GRAN % (test code = 7410359620) 0.60 % LYMPH % (test code = 736-9) 39.9 % MONO % (test code = 5905-5) 5.9 % EOS % (test code = 713-8) 5.3 % BASO % (test code = 706-2) 0.7 % GRAN MAT x10^3(ANC) (test code = 4895392051) 4.45 10*3/uL 1.88-7.09 IMM GRAN x10^3 (test code = 7983374936) 0.06 10*3/uL 0-0.06 LYMPH x10^3 (test code = 731-0) 3.74 10*3/uL 1.32-3.29 H MONO x10^3 (test code = 742-7) 0.55 10*3/uL 0.33-0.92 EOS x10^3 (test code = 711-2) 0.50 10*3/uL 0.03-0.39 H BASO x10^3 (test code = 704-7) 0.07 10*3/uL 0.01-0.07 Lab Interpretation (test code = 13394-4) Abnormal [facility] [id number] 18:31:00* Test Item Value Reference Range Interpretation Comme nts POCT PREG (test code = 1605) Negative On board controls acceptable with C Line (test code = 3574) Yes POCT PREG LOT # (test code = 3575) POCT PREG TEST DATE ( test code = 3576) [facility] URINALYSIS W/O SPECIFIC [id number] 18:31:00* Test Item Value Reference Range Interpretation [...] = 3257) Trace Negative - Negati ve [facility] Consult Notes Date/Time Note Provider Source 2023-01-12 00:12:43 Associated Order(s): CONSULT GENERAL SURGERY TRAUMA/ACS Surgery Consult Note Attending: Ursula Reason for Consult: gallbladder fossa fluid collection s/p lap pasquale History of Present Illness: Nikko Dyson is a 27 year old female, with past medical history of nephrolithiasis, migraines, anxiety now presenting for surgical evaluation of RUQ pain associated with a 4.6 x 2.6 x 2.5cm gallbladder fossa fluid collection s/p elective lap pasquale for symptomatic cholelithiasis 1.5 months ago at OSH ([place]). Pt states that she has had persistent RUQ pain with nausea and po intolerance along with intermittent chills and vomiting since surgery. Was seen by PCP and instructed to come to [facility] ED for further evaluation. Review of Systems: (BOLDED if positive. Otherwise negative.) General: weight changes, fatigue, fever, chills ENT: hearing problems, earaches, allergies, nose bleeds Respiratory: cough, wheeze, shortness of breath Cardiac: chest discomfort, palpitations GI: abdominal pain, nausea, vomiting, diarrhea, constipation, blood in stool Musculoskeletal: muscle cramps, back pain, joint pain, weakness Immunologic: food allergies, recurrent infections Urinary: increased frequency, burning, incontinence, blood in urine Psychiatric: anxiety, depression Endocrine: thyroid problems, diabetes Neurologic: fainting, seizures, loss of memory, headaches Skin: rashes, lumps Past Medical History: Past Medical History: Diagnosis Date Absence of menstruation [...] vehicle per pt report Past Surgical History: Past Surgical History: Procedure Laterality Date SECTION 2015 SECTION N/A 07/21/2019 Surgeon: Prasanna Vargas MD; Location: [facility] OR Location TUBAL LIGATION N/A 07/21/2019 Surgeon: Prasanna Vargas MD; Location: [facility] OR Location Family History: Family History Problem Relation Age of Onset Cancer Mother 44 Breast Diabetes Mother Heart Mother Neurological Mother Diabetes Father Neurological Father Asthma Sister Asthma Brother Cancer Maternal Grandmother 28 Breast Ovarian Cancer Maternal Grandmother Breast Cancer Maternal Grandmother Heart Maternal Grandmother Neurological Maternal Grandmother Diabetes Maternal Grandfather Heart Maternal Grandfather Neurological Maternal Grandfather Heart Paternal Grandmother Ovarian Cancer Paternal Grandmother Cancer Paternal Grandfather Social History: Social History Socioeconomic History Marital status: Single [...] file Housing Stability: Not on file Current Medications: Current Facility-Administered Medications Medication Dose Route [...] skin once every month. 1 mL 3 Zxzsaptfjr-Dgegugqfvuzcv-Dnsl (FIORICET) 50-300-40 mg per capsule Take 1 [...] or Shortness of Breath. 8.5 g 0 Allergy: Allergies Allergen Reactions Compazine [Prochlorperazine] Hives Tolerates promethazine Haloperidol Other - See comments Pt states, "I get angry". Toradol [Ketorolac] Hives Latex Rash Reglan [Metoclopramide Hcl] Anxiety Patient says she gets figity, angry and mean Vitals: Temp: [36.8 ?C (98.3 ?F)] Pulse: [104] Resp: [18] BP: (135)/(91) Vitals: 01/11/23 2103 BP: (!) 135/91 Pulse: 104 Resp: 18 Temp: 36.8 ?C (98.3 ?F) TempSrc: Oral SpO2: 96% Weight: 68 kg (150 lb) PHYSICAL EXAM Appearance: patient alert and in no acute distress Head: normocephalic and atraumatic Eye: normal external eye, corneas clear, conjunctiva and sclera normal and extraocular movement intact Neck: neck supple with no rigidity, trachea midline Cardiovascular: regular rate and rhythm Respiratory: non-labored respirations, bilateral chest wall rise Abdomen: soft, RUQ moderate TTP, well healed lap incision sites, non-distended, no rebound tenderness or guarding. No peritoneal signs. Extremities: No gross deformities. No clubbing, cyanosis or BLE edema. Neurologic: alert and oriented x4, no gross deficits Psychiatric: normal mood and affect Skin: skin color, texture and turgor are normal; no bruising, rashes or lesions noted. Labs: Labs (last 24 hours): Chemistry CBC LFTs Coags, other 137 104 2 (L) 92 5.45 13.1 307 AST: 33 ALT: 27 PT: - INR: - 3.4 (L) 24 0.80 38.5 AP: 87 T Quincy: 0.4 PTT: - eGFR: 86.0 Ca: 8.4 (L) % [place]: 52.0 Prot: 6.3 Alb: 3.7 Lact: - Procal: - Mg: - PO4: - ANC: 2.84 pBNP: - Trop I: - Radiology: CT ABDOMEN PELVIS W CONTRAST Result Date: 01/11/2023 ORDERING CLINICIAN: AROLDO SIDDIQUI TECHNIQUE: Multidetector helical scanning [...] RL: 7802 End of report Hospital Problem list: Patient Active Problem List Diagnosis Date Noted Influenza [...] 03/18/2021 Trouble in sleeping 09/06/2020 Tachycardia 04/12/2020 Assessment: Nikko Dyson is a 27 year old female, with past medical history of nephrolithiasis, migraines, anxiety now presenting for surgical evaluation of RUQ pain associated with a 4.6 x 2.6 x 2.5cm gallbladder fossa fluid collection c/w abscess s/p elective lap pasquale for symptomatic cholelithiasis 1.5 months ago at OSH ([place]). Plan: Admission to [facility] service Consult IR for percutaneous drainage of gallbladder fossa abscess for source control IV zosyn Trend LFTs, WBC Pre-procedure CLD, mIVF Multimodal pain control IS 10x/hr, pulm toilet GI ppx: protonix DVT ppx: LVX Patient discussed with faculty, Dr. Vergara. Rodolfo Riggins DO PGY-2 Surgery Resident Associated attestation - Mirella Vergara MD - 01/12/2023 3:39 AM CDT I have reviewed the patient's chart and examined the patient on 01/12/[address] Riggins' note. I actively participated in the decision-making process. Please see the resident's note for additional details. HPI: Persistent RUQ abdominal pain, nausea, anorexia since lap pasquale at [facility] on 12/01/22 with noted venous bleeding from GB fossa and surgicel/quentin applied. PMH: migraines, non-obstructing renal stones, anxiety, ADHD, bipolar, oppositional defiant dx PSH: Lap cholecystectomy 12/01/22 w/ post-op course complicated by mild hepatitis, GB fossa collection, bacterial PNA, acute cysitits, and ileus; x2, tubal ligation Meds: states off antipsychotics 3 wks PE: AVSS, moderate TTP RUQ, no guarding or rebound Labs: no leukocytosis, LFTs WNL Imaging: CT A/P reviewed: persistent RUQ fluid collection with air 4.6 x 2.6 x 2.5 cm, fat-containing umbilical hernia A/P: Gallbladder fossa abscess post cholecystectomy - Admit, IV Zosyn, consult IR for drainage and send Cx - Extended time spent in chart review performed in Care Everywhere (see separate note) - FU with OSH, surgeon to determine if collection ever drained or any micro cx's - Replete hypokalemia Mirella Vergara MD, PhD [employer] Trauma, Acute Care Surgery, and Surgical Critical Care In-house Pager: [phone] [facility] - Health History and Physical Notes Date/Time Note Provider Source 2023-01-12 01:05:04 Formatting of this n ote might be different from the original. 01/12/23 1:05 AM Please refer to consult note written by Rodolfo Riggins DO on 01/12/23 for complete H&P. Rodolfo Riggins DO PGY-2 Surgery Resident Associated attestation - Mirella Vergara MD - 01/12/2023 1:47 AM CDT Agree [facility] - Health Notes Date/Time Note Provider Source 2023-08-27 16:08:07 TRANSITIONAL CARE MANAGEMENT ASSESSMENT 08/27/2023 Nikko Dyson [id number] Nikko Dyson is a 28 year old /White female was admitted on 08/23/23 to [facility], [address] She was discharged on 08/24/23 with discharge disposition of HR- Routine Discharge. Admitting Physician: Roldan Lim Discharge Diagnosis: Cerebrovascular accident (CVA), unspecified mechanism [ Pt. Voiced her thoughts about [facility], not pleased with care provided. Plans to not f/u with [facility]. Pt. Inquired about results MY chart issue due to pt. Came in the hospital not alert. Instructed via the AVS it is under the other name Dominick Adamson 08/23/2023 - 08/24/2023 Neurology/Neurological Surgery ([address]). Pt. Access via the AVS page 4 there. Pt. Has gone under this chart Karis with no results found. Gave HIM contact number for further assistance. No linked episodes TCM Kjb-fwar-xc-face outreach documentation: Discharge Assessment Chart Assessed: 08/27/23 TCM Outreach Completed: 08/27/23 Do you have a few minutes to speak with me about how you are doing at home?: Yes Survey - Recognition Is there anything you would like to share about your recent hospitalization, or anyone you would like to recognize?: Yes Do you have any other questions or concerns at this time?: Yes Future Appointments: Future Appointments Provider Department Dept Phone 09/12/2023 9:30 AM ADC MOBILE MRI 1 (1.5T) [facility] Radiology [facility], [facility] [phone] Marlys Odell LVN [facility] 2023-08-26 13:35:01 TRANSITIONAL CARE MANAGEMENT ASSESSMENT 08/26/2023 Nikko Dyson [id number] Nikko Dysno is a 28 year old /White female was admitted on 08/23/[address] She was discharged on 08/24/23 with discharge disposition of HR- Routine Discharge. Admitting Physician: Roldan Lim Discharge Diagnosis: Cerebrovascular accident (CVA), unspecified mechanism [I63.9] No contact. No linked episodes TCM Mql-baoq-fz-face outreach documentation: Future Appointments: [facility] 2023-05-19 12:16:00 Pt given printed and verbal discharge instructions regarding acute UTI, renal calculi, splenomegaly, encouraged hydration. Prescriptions provided. Discussed ibuprofen and to take with food to avoid GI distress. Discussed antibiotic therapy and to take until all completed unless adverse reaction occurs - if occurs, discontinue medication and follow up with pcp/seek medical attention Pt verbalized understanding of instructions, pt awake alert oriented, resp reg unlabored, skin w/d, color appropriate for race, moves all ext well,pt encouraged to follow up with pcp. Advised to seek medical attention for new/prolonged/worsening of symptoms. No adverse reaction to meds given in ER noted upon discharge. PIV d'cd, dressing to site, catheter in tact. Awake, alert oriented, resp reg unlabored, skin w/d, pt leaving amb with steady gait, in no apparent distress. 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 Patient states that she was worked up in [facility] 2 weeks ago and found nothing wrong, just referred to a GI doctor but she hasn't seen one because she has no insurance. NNE Ruiz RN [facility] 2023-01-16 10:56:45 Formatting of this n ote is different from the original. TRANSITIONAL CARE MANAGEMENT ASSESSMENT 01/16/2023 Nikko Dyson [id number] Nikko Dyson is a 27 year old /White female was admitted on 01/11/[address] She was discharged on 01/15/23 with discharge disposition of HR- Routine Discharge. Admitting Physician: Oliver Steele Discharge Diagnosis: Postprocedural intraabdominal abscess [T81.43XA] Pt. Verbalized understanding discharge instructions. Plans to f/u with pcp. Linked Episodes Type: Episode: Status: Noted: Resolved: Last update: Updated by: TRANSITION OF CARE tcm Active 01/16/2023 01/16/2023 10:56 AM Marlys Odell LVN Comments: TCM Eim-odlq-sz-face outreach documentation: Discharge Assessment Chart Assessed: 01/16/23 TCM Outreach Completed: 01/16/23 Do you have a few minutes to speak with me about how you are doing at home?: Yes Discharge Instructions Do you understand your at-home instructions?: Yes Medications Have you filled your prescriptions and do you have them in your home? : Yes Do you know how to take your medications?: Yes Can you provide me with the names or descriptions of any [id number]-[id number] or supplements you are currently taking?: Yes Supplies Did you receive applicable home medical supplies/equipment?: N/A Follow Up Appointment Has a follow up appointment been scheduled?: Yes Do you have any questions about your follow up appointments?: No Are you able to get to your appointment? Who will be taking you?: Yes (self) Home Health Assistance Has the home health nurse contacted you since you've been home?: N/A Survey - Recognition Is there anything you would like to share about your recent hospitalization, or anyone you would like to recognize?: No Do you have any suggestions for improvement?: No Do you have any other questions or concerns at this time?: No Future Appointments: Marlys Odell LVN [facility] 2023-01-15 18:18:34 Formatting of this n ote might be different from the original. Patient is cleared for discharge. Problem: Infection Risk Goal: Absence of infection 01/15/20231817 by Vero Crews RN Outcome: Adequate for discharge 01/15/20231817 by Vero Crews RN Outcome: Adequate for discharge 01/15/2023 1310 by Vero Crews RN Outcome: Progressing as expected Problem: Pain Goal: Control of pain at or below patient's documented comfort goal 01/15/20231817 by Vero Crews RN Outcome: Adequate for discharge 01/15/20231817 by Vero Crews RN Outcome: Adequate for discharge 01/15/2023 1310 by Vero Crews RN Outcome: Progressing as expected Goal: Reduction in pain sensation 01/15/20231817 by Vero Crews RN Outcome: Adequate for discharge 01/15/20231817 by Vero Crews RN Outcome: Adequate for discharge 01/15/2023 1310 by Vero Crews RN Outcome: Progressing as expected Problem: Discharge Planning Goal: Adequate for discharge 01/15/20231817 by Vero Crews RN Outcome: Adequate for discharge 01/15/20231817 by Vero Crews RN Outcome: Adequate for discharge 01/15/2023 1310 by Vero Crews RN Outcome: Progressing as expected Goal: Effective communication 01/15/20231817 by Vero Crews RN Outcome: Adequate for discharge 01/15/2023 1818 by Vero Crews RN Outcome: Adequate for discharge 01/15/2023 1310 by Vero Crews RN Outcome: Progressing as expected [facility] 2023-01-15 15:08:00 Formatting of this n ote might be different from the original. Called outpatient pharmacy and spoke to Maggi. Stated pharmacy will bring patient's medications to her room within 45min to an hour. T Vero Crews RN [facility] 2023-01-15 13:11:00 Formatting of this n ote might be different from the original. Problem: Infection Risk Goal: Absence of infection Outcome: Progressing as expected Problem: Pain Goal: Control of pain at or below patient's documented comfort goal Outcome: Progressing as expected Goal: Reduction in pain sensation Outcome: Progressing as expected Problem: Discharge Planning Goal: Adequate for discharge Outcome: Progressing as expected Goal: Effective communication Outcome: Progressing as expected T [facility] 2023-01-15 06:25:22 Formatting of this n ote might be different from the original. Problem: Infection Risk Goal: Absence of infection Outcome: Progressing as expected Problem: Pain Goal: Control of pain at or below patient's documented comfort goal Outcome: Progressing as expected Goal: Reduction in pain sensation Outcome: Progressing as expected Problem: Discharge Planning Goal: Adequate for discharge Outcome: Progressing as expected Goal: Effective communication Outcome: Progressing as expected Katy Means RN [facility] 2023-01-14 09:27:52 Formatting of this n ote might be different from the original. Problem: Infection Risk Goal: Absence of infection Outcome: Progressing as expected Problem: Pain Goal: Control of pain at or below patient's documented comfort goal Outcome: Progressing as expected Goal: Reduction in pain sensation Outcome: Progressing as expected Problem: Discharge Planning Goal: Adequate for discharge Outcome: Progressing as expected Goal: Effective communication Outcome: Progressing as expected T Charles Win RN [facility] 2023-01-13 22:20:47 Formatting of this n ote might be different from the original. Notified MD by page due to double dose of Tylenol being given. Per MD Brito no more Tylenol to be given for tonight. [facility] 2023-01-13 21:55:20 Formatting of this n ote might be different from the original. Problem: Infection Risk Goal: Absence of infection Outcome: Progressing as expected Problem: Pain Goal: Control of pain at or below patient's documented comfort goal Outcome: Progressing as expected Goal: Reduction in pain sensation Outcome: Progressing as expected Problem: Discharge Planning Goal: Adequate for discharge Outcome: Progressing as expected Goal: Effective communication Outcome: Progressing as expected [facility] 2023-01-13 08:20:43 Formatting of this n ote might be different from the original. Problem: Infection Risk Goal: Absence of infection Outcome: Progressing as expected Problem: Pain Goal: Control of pain at or below patient's documented comfort goal Outcome: Progressing as expected Goal: Reduction in pain sensation Outcome: Progressing as expected Problem: Discharge Planning Goal: Adequate for discharge Outcome: Progressing as expected Goal: Effective communication Outcome: Progressing as expected [facility] 2023-01-12 20:10:08 Formatting of this n ote might be different from the original. Problem: Infection Risk Goal: Absence of infection Outcome: Progressing as expected Problem: Pain Goal: Control of pain at or below patient's documented comfort goal Outcome: Progressing as expected Goal: Reduction in pain sensation Outcome: Progressing as expected Problem: Discharge Planning Goal: Adequate for discharge Outcome: Progressing as expected Goal: Effective communication Outcome: Progressing as expected [facility] 2023-01-12 09:28:38 Formatting of this n ote might be different from the original. Problem: Infection Risk Goal: Absence of infection Outcome: Progressing as expected Problem: Pain Goal: Control of pain at or below patient's documented comfort goal Outcome: Progressing as expected Goal: Reduction in pain sensation Outcome: Progressing as expected Problem: Discharge Planning Goal: Adequate for discharge Outcome: Progressing as expected Goal: Effective communication Outcome: Progressing as expected [facility] 2023-01-12 05:17:00 Formatting of this n ote might be different from the original. Problem: Infection Risk Goal: Absence of infection Outcome: Progressing as expected Problem: Pain Goal: Control of pain at or below patient's documented comfort goal Outcome: Progressing as expected Goal: Reduction in pain sensation Outcome: Progressing as expected Problem: Discharge Planning Goal: Adequate for discharge Outcome: Progressing as expected Goal: Effective communication Outcome: Progressing as expected [facility] 2023-01-12 01:43:06 Formatting of this n ote might be different from the original. Report to lisy CURRIE on 9C. Pt awaiting transport [facility] Melvin Villegas RN [facility] 2023-01-12 01:10:30 Formatting of this n ote might be different from the original. Attempted report, nurse unavailable, left callback number [facility] 2023-01-12 00:24:49 Formatting of this n ote might be different from the original. Surgery at bedside [facility] 2023-01-11 23:08:11 Formatting of this n ote might be different from the original. made aware of pt increased pain and nausea [facility] 2023-01-11 22:34:38 Formatting of this n ote might be different from the original. Pt return from CT, warm blanket given T [facility] 2023-01-11 22:18:01 Formatting of this n ote might be different from the original. Pt to CT scan [facility] 2023-01-11 21:30:08 Formatting of this n ote might be different from the original. Nikko Dyson is a 27 year old female who presents to ER for cc of RUQ LUQ abdominal pain radiating to RLQ, persistent nausea and diarrhea x 2 weeks. Pt had gallbladder removed and a portion of liver removed 1 mo ago. Pt followed up w her PCP, showing elevated liver enzymes, CT scan showing inflamed liver. Denies vomiting, denies blood in stool. [facility] 2023-01-11 21:03:38 Formatting of this n ote might be different from the original. Nikko Dyson is a 27 year old female here today c/o abdominal pain x 2 days. Pt denies N/V but reports diarrhea. Pt reports "9/10" pain at this time. Pt reports pain travels down right side abdomen. Pt is A&Ox4, NAD Noted. RR even/unlabored. [facility] 2023-01-11 20:44:00 Formatting of this n ote is different from the original. [facility] Emergency Department Note Patient Name: Nikko Dyson Date of : 1995 27 year old female Treatment Room: 112/[facility] Primary Care Physician: Luke Baker Patient Escorted by: Family [5] Mode of Arrival: Personal means [1] EMS Treatment Prior to ED Arrival: BAND EDGER treatment: None Travel and Exposure Screening: Symptoms Does patient have any of these symptoms?: (not recorded) Exposure Screening Has patient had contact with someone with a communicable disease in the last month?: (not recorded) Diseases exposed to:: (not recorded) Is Patient ?: (not recorded) Exposure Date: (not recorded) Chief Complaint: Chief Complaint Patient presents with Abdominal Pain History of Present Illness: Patient is a 27-year-old female with past surgical history of cholecystectomy 1 month ago, and medical history of anxiety presents to the ER for "severe pain in my belly". Patient states she has had constant pain that is progressively worsening since her cholecystectomy 1 month ago that was done at [place]. Due to the worsening discomfort patient has, [...] when she sits up. Patient has discontinued [place] and anxiety medication due to concern for her liver. She is only used a heating pad for her symptoms with minimal improvement. 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 Past Surgical History: Past Surgical History: Procedure Laterality Date SECTION 2015 SECTION N/A 07/21/2019 Surgeon: Prasanna Vargas MD; Location: [facility] OR Location TUBAL LIGATION N/A 07/21/2019 Surgeon: Prasanna Vargas MD; Location: [facility] Location [...] headaches. All other systems reviewed and are negative. Physical Exam: ED Triage Vitals [01/11/232102] Weight 68 kg (150 lb) Actual or estimated Height BP (!) 135/91 Pulse 104 Resp 18 Temp 36.8 ?C (98.3 ?F) Temp source Oral SpO2 96 % Measured on Room air Physical Exam Constitutional: General: She is not in acute [...] and time. Mental status is at baseline. Radiology: No orders to display Lab Results: Lab Results URINALYSIS - Abnormal Result Value Ref [...] 0 - 220 U/L COMP. METABOLIC PANEL (81182) TOTAL BETA HCG ASSAY EXTRA TUBE ORANGE EXTRA TUBE LAV EKG: If EKG completed, see Procedure Note. Orders and Treatments: Orders Placed This Encounter Procedures CT ABDOMEN PELVIS W CONTRAST POCT TEST URINALYSIS LIPASE COMP. METABOLIC PANEL (54563) TOTAL BHCG (QUANTITATIVE) Orders Placed This Encounter Medications NaCl 0.9% (NS) bolus infusion 1,000 mL morpHINE (4 mg/mL) injection 4 mg maalox:diphenhydrAMINE:lidoc gerda 2 % viscous 1:1:1 (FIRST-MOUTHWASH BLM) oral suspension 15 mL ondansetron (ZOFRAN (PF)) injection 4 mg First Provider Eval: ED Events Date/Time Event User Comments 01/11/232104 Medical Screening Begins CIERA GARCÍA -- 01/11/232104 First Provider Evaluation CIERA GARCÍA -- No notes of EC Admission Criteria type on file. ED COURSE Diagnosis/Impression as of 01/12/23 0718 Abdominal pain, unspecified abdominal location Abscess of gallbladder Procedures: Procedures MDM: Medical Decision Making Patient is a 27-year-old female with past medical [...] drainage of abscess and continued management of symptoms. Problems Addressed: Abdominal pain, unspecified abdominal location: acute illness or injury that poses a threat to life or bodily functions Amount and/or Complexity of Data Reviewed Labs: ordered. Radiology: ordered. Risk Prescription drug management. Parenteral controlled substances. Flowsheet Documentation: Scoring Tools: No data recorded Disposition/Condition: ED Disposition None Discharge Medications: Patient's Medications START taking these medications No medications on file CONTINUE taking these medications which have NOT CHANGED ALBUTEROL 90 MCG/ACTUATION INHALER Inhale 2 Puffs every 6 (six) hours as needed for Wheezing or Shortness of Breath. BACLOFEN 10 MG TABLET Take 1 tablet by mouth every 6 (six) hours as needed. CQKXZOQRIZ-XLNJWMKOPAGAD-TPOP (FIORICET) 50-300-40 MG PER CAPSULE Take 1 [...] medications on file Follow-up: Electronically signed by: Ciera García DO 01/12/23 0211 Associated attestation - Aroldo Siddiqui DO - 01/12/2023 7:17 AM CDT After discussion with Dr. García, I examined this patient. I agree with resident's note as written. The patient had CT findings concerning for a possible post-op abscess in the Gallbladder fossa, post-recent cholecystectomy in [place]. General surgery was consulted and admitted the patient for further workup and management. [facility] 2022-12-03 08:57:03 Formatting of this n ote might be different from the original. Patient has an appointment 12/12/22. Blayne Silva RN 12/03/2022 8:57 AM Blayne Silva RN [facility]
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
[2023-12-17] MEDS ORDERED: ONDANSETRON 4 MG/2 ML VIAL ONE (20:34)
[2023-12-17] MEDS ORDERED: ACETAMINOPHEN 325 MG TABLET ONE (20:34)
[2023-12-17] MEDS ORDERED: FENTANYL CITR 100 MCG/2 ML ONE (20:35)
[2023-12-17] MEDS ORDERED: NA CHLORIDE 0.9% 1,000 ML ONE (20:35)
[2023-12-17 21:00] LABS: Absolute Basophils 0.1 K/uL (0-0.5); Absolute Eosinophils 0.6 K/uL (0-0.5); Absolute Lymphocytes (CBC) 2.1 K/uL (0.7-4.9); Absolute Monocytes 0.4 K/uL (0.1-1.3); Absolute Neutrophil 6.4 K/uL (1.8-8.0); Basophils % 0.6 % (0-1.3); Eosinophils % 5.9 % (0-4.4); Hematocrit 39.9 % (36.0-45.0); Hemoglobin 13.2 g/dL (12.0-15.0); Lymphocytes % 21.8 % (15.3-44.8); MCHC 33.2 g/dL (32.0-36.0); MCV 87.5 fL (80-100); Monocytes % 4.1 % (3.3-12.3); Neutrophils % 67.6 % (41.7-73.7); Platelets 353 thou/uL (152-406); RBC Red Blood Cell Count 4.55 M/uL (3.86-4.86); Red Cell Distribution Width 13.8 % (12.1-15.2)
[2023-12-17 21:15] LABS: Specific Gravity 1.024 (1.005-1.030)
[2023-12-17 21:17] LABS: Albumin 3.8 g/dL (3.4-5.0); Albumin/Globulin Ratio 1.1 (1.1-1.8); Anion Gap 9.4 mEq/L (5.0-15.0); Bilirubin Total 0.2 mg/dL (0.2-1.0); Globulin 3.6 g/dL (2.3-3.5); Potassium 3.4 mEq/L (3.5-5.1); Protein, Total 7.4 g/dL (6.4-8.2)
[2023-12-17 21:18] LABS: Specific Gravity 1.024 (1.005-1.030); Sqamous Epithelial <5 /HPF (None Seen); Urine Bacteria None Seen /HPF (<20); Urine Bilirubin NEGATIVE (Negative); Urine Blood 2+ (Negative); Urine Clarity Turbid (Clear); Urine Color Light-Yellow (Yellow); Urine Culture Reflex Order NOT NEEDED; Urine Glucose NEGATIVE (Negative); Urine Ketones NEGATIVE (Negative); Urine Microscopic Reflex YN ORDER UMIC; Urine Mucus Slight /HPF (None Seen); Urine Nitrite NEGATIVE (Negative); Urine Protein TRACE (Negative); Urine RBC >50 /HPF (None Seen); Urine Urobilinogen Normal (Normal); Urine WBC <5 /HPF (<5); Urine Yeast (Budding) Few /HPF (None Seen); Urine pH 5.5 (5.0-7.0)
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
[2023-12-17] MEDS ORDERED: POTASSIUM 25 MEQ EFFERV TAB ONE (21:55)
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
[2023-12-18 08:35] VITALS: BP 150/82; TEMP 98.8; O2SAT 98
== END 2023-12-17 22:32 | disposition home or self-care (01) ==
LOC: ER 18:38
DX: S29.012A Strain of muscle and tendon of back wall of thorax, initial encounter (principal); S29.011A Strain of muscle and tendon of front wall of thorax, initial encounter; S20.411A Abrasion of right back wall of thorax, initial encounter; M25.531 Pain in right wrist; M25.511 Pain in right shoulder; R10.819 Abdominal tenderness, unspecified site; E87.6 Hypokalemia; V86.55XA Driver of 3- or 4- wheeled all-terrain vehicle (ATV) injured in nontraffic accident, initial encounter
CPT/HCPCS: 85025; 81001; 36415; 81025; 80053; 70450; 72125; 71260; 74177; 73030; 73110; Q9967; J3010; J2405; J7030

== ENCOUNTER 2024-01-08 08:07 | Emergency (ER) | payer OTHER ==
--- OUTSIDE RECORDS SUMMARY | 2024-01-08 08:23 | XMS REPORT | Continuity of Care Document ---
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 [facility] proMETHazin e (PHENERGAN) 12.5 mg in NaCl 0.9% (NS) 50 mL IV piggyback 09-05 14:00: 00 09-05 14:40 :00 No 12.5mg 12.5 mg, IV Piggyback, ONCE, 1 dose, [facility]09/05/22 [facility] 0900[facility] 25 mg tablet 09-05 00:00: 00 Yes [id number] 25mg Take 1 tablet by mouth in the morning and 1 tablet in the evening. Take with meals. [facility] losartan 50 mg tablet 09-05 00:00: 00 Yes [id number] 50mg Take 1 tablet by mouth in the morning and 1 tablet in the evening. [facility] ibuprofen 800 mg tablet 08-05 00:00: 00 Yes 800mg Take 1 tablet by mouth 3 (three) times daily as needed. [facility] cyclobenzap rine 10 mg tablet 08-05 00:00: 00 Yes 10mg Take 1 tablet by mouth 3 (three) times daily as needed. [facility] maalox:diph enhydrAMINE :lidocaine 2 % viscous 1:1:1 ([facility]) oral suspension 15 mL 08-01 00:45: 00 08-01 00:44 :00 No 15mL 15 mL, Oral, ONCE, 1 dose, On Sat07/31/22 at 1945, [place] [facility] ketorolac (TORADOL) injection 15 mg 08-01 00:15: 00 08-01 00:44 :00 No 15mg 15 mg, Slow IV Push, ONCE, 1 dose, On Sat07/31/22 at 1914, Routine [facility] ondansetron (ZOFRAN (PF)) injection 4 mg 08-01 00:15: 00 08-01 00:46 :00 No 4mg 4 mg, Slow IV Push, ONCE, 1 dose, On Sat07/31/22 at 1914, [place] [facility] famotidine (PEPCID (PF)) injection 20 mg 08-01 00:15: 00 08-01 00:46 :00 No 20mg 20 mg, Slow IV Push, ONCE, 1 dose, On Sat07/31/22 at 1914, [place] [facility] ondansetron 4 mg disintegrat ing tablet 07-31 00:00: 00 05-19 00:00 :00 No [id number] 4mg Take 1 tablet by mouth every 8 (eight) hours as needed for Nausea and Vomiting (N/V). [facility] sucralfate 1 gram tablet 07-31 00:00: 00 05-19 00:00 :00 No [id number] 1g Take 1 tablet by mouth before meals and at bedtime. [facility] pantoprazol e 40 mg EC tablet 07-31 00:00: 00 08-15 04:59 :00 No [id number] 40mg Take 1 tablet by mouth in the morning for 14 days. [facility] tamsulosin 0.4 mg 24 hr capsule 07-25 00:00: 00 Yes .4mg Take 1 capsule by mouth in the morning. [facility] traMADoL 50 mg tablet 07-23 00:00: 00 Yes 50mg Take 1 tablet by mouth. [facility] ibuprofen 600 mg tablet 07-15 00:00: 00 07-31 00:00 :00 No [id number] 600mg Take 1 tablet by mouth every 6 (six) hours as needed for Pain (scale 4-6). [facility] citalopram 10 mg tablet 06-29 00:00: 00 Yes 10mg Take 1 tablet by mouth in the morning. [facility] QUEtiapine 400 mg tablet 06-29 00:00: 00 Yes [facility] gabapentin 600 mg tablet 06-29 00:00: 00 Yes [facility] methylPREDN ISolone (MEDROL, ANABELA,) 4 mg tablets 06-23 00:00: 00 Yes [id number] Take by mouth SEE-INSTRU CTIONS. follow package directions [facility] bromphenira mine-pseudo ephedrine-D M (BROMFED DM) 2-30-10 mg/5 mL syrup 06-23 00:00: 00 07-04 05:59 :00 No [id number] 5mL Take 5 mL by mouth 4 (four) times daily as needed for Cold symptoms for up to 10 days. [facility] methocarbam oL 750 mg tablet 06-23 00:00: 00 07-01 05:59 :00 No [id number] 750mg Take 1 tablet by mouth 4 (four) times daily for 7 days. [facility] magnesium sulfate in water 2 gram/50 mL (4 %) infusion 2 g 2021-05 21:00: 00 05-05 21:15 :00 No 2g 2 g, IV Piggyback, Administer over 15 Minutes, ONCE, 1 dose, On 05/05/22 at 1500, [place] [facility] butalbital- acetaminoph en-caff (ESGIC) 50-325-40 mg tablet 1 tablet 2021-05 20:15: 00 05-05 20:56 :00 No 1{tbl} 1 tablet, Oral, ONCE, 1 dose, On 05/05/22 at 1415, [place] [facility] dexamethaso ne sod phos PF injection 10 mg 2021-05 20:15: 00 05-05 21:00 :00 No 10mg 10 mg, Slow IV Push, ONCE, 1 dose, On 05/05/22 at 1415, 1 mL [facility] NaCl 0.9% (NS) bolus infusion 1,000 mL 2021-05 20:00: 00 05-05 21:45 :00 No 1000mL at 999 mL/hr, 1,000 mL, IV Infusion, ONCE, 1 dose, On 05/05/22 at 1400, [place] [facility] diphenhydrA MINE (BENADRYL) injection 25 mg 2021-05 19:15: 00 05-05 19:42 :00 No 25mg 25 mg, Slow IV Push, ONCE, 1 dose, On 05/05/22 at 1315, STAT [facility] ondansetron (ZOFRAN (PF)) injection 4 mg 2021-05 19:15: 00 05-05 19:45 :00 No 4mg 4 mg, Slow IV Push, ONCE, 1 dose, On 05/05/22 at 1315, [place] [facility] ketorolac (TORADOL) injection 30 mg 2021-05 19:15: 00 05-05 19:44 :00 No 30mg 30 mg, Slow IV Push, ONCE, 1 dose, On 05/05/22 at 1315, Routine [facility] butalbital- acetaminoph en-caff 50-325-40 mg tablet 2021-05 00:00: 00 Yes [id number] 1{tbl} Take 1 tablet by mouth every 4 (four) hours as needed for Pain (scale 7-10). [facility] HYDROcodone -acetaminop hen (NORCO) 10-325 mg tablet 1 tablet 2021-05 16:30: 00 04-26 15:23 :00 No 1{tbl} 1 tablet, Oral, ONCE, 1 dose, On [place] 04/26/22 at 1030, Routine [facility] diphenhydrA MINE (BENADRYL) tablet 25 mg 2021-05 15:45: 00 04-26 15:53 :00 No 25mg 25 mg, Oral, ONCE, 1 dose, On [place] 04/26/22 at 0945, [place] [facility] NaCl 0.9% (NS) bolus infusion 1,000 mL 2021-05 15:45: 00 04-26 15:55 :00 No 1000mL at 999 mL/hr, 1,000 mL, IV Piggyback, ONCE, 1 dose, On [place] 04/26/22 at 0945, STAT [facility] ondansetron (ZOFRAN (PF)) injection 4 mg 2021-05 14:45: 00 04-26 14:52 :00 No 4mg 4 mg, Slow IV Push, ONCE, 1 dose, On [place] 04/26/22 at 0845, Routine [facility] cephALEXin (KEFLEX) 500 mg capsule 2021-05 00:00: 00 05-04 05:59 :00 No [id number] 500mg Take 1 capsule by mouth in the morning and 1 capsule at noon and 1 capsule in the evening. Do all this for 7 days. [facility] ondansetron (ZOFRAN) 4 mg tablet 2021-05 00:00: 00 07-31 00:00 :00 No 4mg Take 1 tablet by mouth every 8 (eight) hours as needed for Nausea and Vomiting (N/V). [facility] galcanezuma b-gnlm prefilled (EMGALITY) subcutaneou s injection 2021-05 00:00: 00 Yes [id number] 120mg inject 120 mg under the skin once every month. [facility] methocarbam oL (ROBAXIN) injection 1,000 mg 2021-05 04:00: 00 Yes 1000mg 1,000 mg, Intravenou s, Q8H, First dose on 04/07/22 at 2200, Until Discontinu ed, Routine [facility] ketorolac (TORADOL) injection 30 mg 2021-05 00:45: 00 04-07 23:45 :00 No 30mg 30 mg, Slow IV Push, ONCE, 1 dose, On 04/07/22 at 1845, [facility] HYDROcodone -acetaminop hen (NORCO) 10-325 [...] 1 dose, On 03/24/22 at 1200, [place] [facility] butorphanol (STADOL) injection 1 mg 2021-05 17:15: 00 03-24 16:26 :00 No 1mg 1 mg, IV Push, ONCE, 1 dose, On 03/24/22 at 1115, Routine [facility] diphenhydrA MINE (BENADRYL) injection 25 mg 2021-05 15:30: 00 03-24 15:40 :00 No 25mg 25 mg, Slow IV Push, ONCE, 1 dose, On 03/24/22 at 0930, STAT [facility] ondansetron (ZOFRAN (PF)) injection 4 mg 2021-05 15:30: 00 03-24 14:25 :00 No 4mg 4 mg, Slow IV Push, ONCE, 1 dose, On 03/24/22 at 0930, [place] [facility] NaCl 0.9% (NS) IV infusion 1,000 mL 2021-05 15:15: 00 03-24 17:25 :00 No 1000mL at 999 mL/hr, Intravenou s, ONCE, 1 dose, On 03/24/22 at 0915, [facility] magnesium sulfate in water 2 gram/50 mL (4 %) infusion 2 g 2021-05 15:00: 00 03-24 14:47 :00 No 2g 2 g, IV Piggyback, Administer over 20 Minutes, ONCE, 1 dose, On 03/24/22 at 0900, Routine [facility] dexamethaso ne sod phos PF injection 6 mg 2021-05 14:15: 00 03-24 14:14 :00 No 6mg 6 mg, Slow IV Push, ONCE, 1 dose, On 03/24/22 at 0815, 1 mL [facility] diphenhydrA MINE (BENADRYL) injection 25 mg 2021-05 14:15: 00 03-24 14:16 :00 No 25mg 25 mg, Slow IV Push, ONCE, 1 dose, On 03/24/22 at 0815, STAT [facility] ALBUTEROL INHALE 2021-05 07:58: 13 03-24 00:00 :00 No [facility] rizatriptan 10 mg tablet 2021-05 00:00: 00 Yes [id number] 10mg Take 1 tablet by mouth as needed for Migraine. May repeat in 2 hours if needed [facility] Butalbital- Acetaminoph en-Caff (FIORICET) 50-300-40 mg per capsule 2021-05 00:00: 00 Yes [id number] 1{capsu le} Take 1 capsule by mouth every 6 (six) hours as needed for Other (headache) . [facility] magnesium oxide 200 mg magnesium Tab 2021-05 00:00: 00 04-07 00:00 :00 No [id number] 200mg Take 200 mg by mouth 2 (two) times daily. Indication s: headache [facility] SUMAtriptan 50 mg tablet 2021-05 00:00: 00 Yes 50mg Take 1 tablet by mouth as needed for Migraine. Take one tablet at onset of migraine, may take another tablet 2 hours after initial dose if no relief with first dose. DO NOT EXCEED 100mg in a 24 hour period. [facility] FENTanyl PF (SUBLIMAZE (PF)) injection 50 mcg 2021-05 15:30: 00 03-15 14:56 :00 No 50ug 50 mcg, Slow IV Push, ONCE, 1 dose, On [place] 03/15/22 at 1030, Routine [facility] proMETHazin e (PHENERGAN) tablet 25 mg 2021-05 14:45: 00 03-15 14:55 :00 No 25mg 25 mg, Oral, ONCE, 1 dose, On [place] 03/15/22 at 0945, [place] [facility] FENTanyl PF (SUBLIMAZE (PF)) injection 50 mcg 2021-05 14:45: 00 03-15 13:58 :00 No 50ug 50 mcg, Slow IV Push, ONCE, 1 dose, On [facility] 03/15/22 at 0945, Routine [facility] ondansetron (ZOFRAN (PF)) injection 4 mg 2021-05 14:00: 00 03-15 13:58 :00 No 4mg 4 mg, Slow IV Push, ONCE, 1 dose, On [facility] 03/15/22 at 0900, [place] [facility] carvediloL 25 mg tablet 2021-05 00:00: 00 09-05 00:00 :00 No [id number] 25mg Take 1 tablet by mouth in the morning and 1 tablet in the evening. Take with meals. [facility] ondansetron 4 mg disintegrat ing tablet 2021-05 00:00: 00 04-07 00:00 :00 No [id number] 4mg Take 1 tablet by mouth every 8 (eight) hours as needed for Nausea and Vomiting (N/V). [facility] ketorolac 10 mg tablet 2021-05 00:00: 00 04-07 00:00 :00 No [id number] 10mg Take 1 tablet by mouth every 6 (six) hours as needed for Pain (scale 7-10). [facility] proMETHazin e 25 mg tablet 2021-05 00:00: 00 04-07 00:00 :00 No [id number] 25mg Take 1 tablet by mouth every 6 (six) hours as needed for N/V unresponsi ve to Ondansetro n. [facility] cephALEXin 500 mg capsule 2021-05 00:00: 00 03-19 05:59 :00 No [id number] 500mg Take 1 capsule by mouth 4 (four) times daily for 3 days. [facility] predniSONE 20 mg tablet 2021-05 0-31 00:00: 00 03-15 04:59 :00 No [id number] 20mg Take 1 tablet by mouth in the morning for 2 days. [facility] methocarbam oL (ROBAXIN) tablet 500 mg 2021-05 16:45: 00 03-11 17:08 :00 No 500mg 500 mg, Oral, ONCE, 1 dose, On 03/11/22 at 1200, [place] [facility] dexamethaso ne sod phos PF injection 10 mg 2021-05 16:00: 00 03-11 16:00 :00 No 10mg 10 mg, Slow IV Push, ONCE, 1 dose, On 03/11/22 at 1100, 1 mL [facility] diphenhydrA MINE (BENADRYL) injection 25 mg 2021-05 15:46: 00 03-11 16:00 :00 No 25mg 25 mg, Slow IV Push, ONCE, 1 dose, On Sat03/11/22 at 1100, STAT [facility] NaCl 0.9% (NS) IV infusion 1,000 mL 2021-05 15:45: 00 03-11 16:04 :00 No 1000mL at 999 mL/hr, Intravenou s, ONCE, 1 dose, On Sat03/11/22 at 1045, Routine [facility] butalbital- acetaminoph en-caff (ESGIC) 50-325-40 mg tablet 1 tablet 2021-05 15:00: 00 03-11 15:05 :00 No 1{tbl} 1 tablet, Oral, ONCE, 1 dose, On Sat03/11/22 at 1015, [place] [facility] ketorolac (TORADOL) injection 15 mg 2021-05 14:45: 00 03-11 15:05 :00 No 15mg 15 mg, Slow IV Push, ONCE, 1 dose, On 03/11/22 at 0945, [place] [facility] proMETHazin e (PHENERGAN) 12.5 mg in NaCl 0.9% (NS) 50 mL IV piggyback 2021-05 14:45: 00 03-11 15:04 :00 No 12.5mg 12.5 mg, IV Piggyback, ONCE, 1 dose, On 03/11/22 at 0945, [place] [facility] proMETHazin e 25 mg tablet 2021-05 00:00: 00 07-31 00:00 :00 No [id number] 25mg Take 1 tablet by mouth every 6 (six) hours as needed for Nausea and Vomiting (N/V). [facility] methocarbam oL 500 mg tablet 2021-05 00:00: 00 04-07 00:00 :00 No [id number] 500mg Take 1 tablet by mouth 3 (three) times daily as needed for Pain (scale 7-10). [facility] topiramate 25 mg tablet 2021-05 00:00: 00 Yes [id number] 100mg Take 4 tablets by mouth in the morning. [facility] diphenhydrA MINE 25 mg capsule 2021-05 09:39: 59 02-27 00:00 :00 No 25mg Take 25 mg by mouth every 6 (six) hours as needed for Allergies. [facility] citalopram hydrobromid e (CITALOPRAM ORAL) 2021-05 09:39: 49 02-27 00:00 :00 No Take by mouth. [facility] carbamazepi ne (TEGRETOL ORAL) 2021-05 09:39: 28 02-27 00:00 :00 No Take by mouth. [facility] albuterol 90 mcg/actuati on inhaler 2021-05 00:00: 00 Yes [id number] 2{puff} Inhale 2 Puffs every 6 (six) hours as needed for Wheezing or Shortness of Breath. [facility] SUMAtriptan 50 mg tablet 2021-05 00:00: 00 03-21 00:00 :00 No 50mg Take 50 mg by mouth as needed for Migraine. Take one tablet at onset of migraine, may take another tablet 2 hours after initial dose if no relief with first dose. DO NOT EXCEED 100mg in a 24 hour period. [facility] benzonatate 200 mg capsule 2021-05 0-18 00:00: 00 03-07 04:59 :00 No [id number] 200mg Take 1 capsule by mouth 3 (three) times daily as needed for Cough for up to 7 days. [facility] butalbital- acetaminoph en-caff (ESGIC) 50-325-40 mg tablet 1 tablet 2021-05 08:15: 00 02-21 08:09 :00 No 1{tbl} 1 tablet, Oral, ONCE, 1 dose, [facility] Sat02/21/22 at 0315[facility] (STADOL[facility] 1 mg 2021-05 08:15: 00 02-21 07:28 :00 No 1mg 1 mg, IV Push, ONCE, 1 dose, On Sat02/21/22 at 0315, Routine [facility] NaCl 0.9% (NS) bolus infusion 1,000 mL 2021-05 07:15: 00 02-21 08:40 :00 No 1000mL at 999 mL/hr, 1,000 mL, IV Infusion, ONCE, 1 dose, On Sat02/21/22 at 0215, [facility] proMETHazin e (PHENERGAN) 12.5 mg in NaCl 0.9% (NS) 50 mL IV piggyback 2021-05 06:30: 00 02-21 06:38 :00 No 12.5mg 12.5 mg, IV Piggyback, ONCE, 1 dose, On Sat02/21/22 at 0130, [place] [facility] dexamethaso ne sod phos PF injection 10 mg 2021-05 06:30: 00 02-21 06:38 :00 No 10mg 10 mg, Slow IV Push, ONCE, 1 dose, On Sat02/21/22 at 0130, 1 mL [facility] ketorolac (TORADOL) injection 15 mg 2021-05 06:30: 00 02-21 06:38 :00 No 15mg 15 mg, Slow IV Push, ONCE, 1 dose, On Sat02/21/22 at 0130, [place] [facility] diphenhydrA MINE (BENADRYL) injection 25 mg 2021-05 06:30: 00 02-21 06:38 :00 No 25mg 25 mg, Slow IV Push, ONCE, 1 dose, On Sat02/21/22 at 0130, STAT [facility] FENTanyl PF (SUBLIMAZE (PF)) injection 50 mcg 2021-05 20:30: 00 02-18 19:44 :00 No 50ug 50 mcg, Slow IV Push, ONCE, 1 dose, On Sat02/18/22 at 1530, Routine [facility] ketorolac (TORADOL) injection 30 mg 2021-05 20:15: 00 02-18 20:09 :00 No 30mg 30 mg, Slow IV Push, ONCE, 1 dose, On Sat02/18/22 at 1515, [facility] iopamidol (ISOVUE 370-500 mL) injection 60 mL 2021-05 19:30: 00 02-18 17:30 :00 No [id number] 60mL 60 mL, Intravenou s, ONCE, 1 dose, On Sat02/18/22 at 1430, Routine [facility] proMETHazin e (PHENERGAN) 12.5 mg in NaCl 0.9% (NS) 50 mL IV piggyback 2021-05 18:15: 00 02-18 18:19 :00 No 12.5mg 12.5 mg, IV Piggyback, ONCE, 1 dose, On Sat02/18/22 at 1315[facility] FENTanyl [facility] (SUBLIMAZE (PF)) injection 50 mcg 2021-05 18:00: 00 02-18 17:26 :00 No 50ug 50 mcg, Slow IV Push, ONCE, 1 dose, On Sat02/18/22 at 1300, Routine [facility] ondansetron (ZOFRAN (PF)) injection 4 mg 2021-05 17:15: 00 02-18 17:27 :00 No 4mg 4 mg, Slow IV Push, ONCE, 1 dose, On [place] 02/18/22 at 1215, [facility] morpHINE (2 mg/mL) injection 4 mg 01-18 15:15: 00 01-18 14:49 :00 No 4mg 4 mg, Slow IV Push, ONCE, 1 dose, On [place] 01/18/22 at 1015, [facility] ondansetron (ZOFRAN (PF)) injection 4 mg 01-18 13:30: 00 01-18 13:33 :00 No 4mg 4 mg, Slow IV Push, ONCE, 1 dose, On [place] 01/18/22 at 0830, [facility] morpHINE (4 mg/mL) injection 4 mg 01-18 13:30: 00 01-18 13:34 :00 No 4mg 4 mg, Slow IV Push, ONCE, 1 dose, On [place] 01/18/22 at 0830, [facility] morpHINE (4 mg/mL) injection 4 mg 01-18 12:30: 00 01-18 11:39 :00 No 4mg 4 mg, Slow IV Push, ONCE, 1 dose, On [place] 01/18/22 at 0730, [facility] famotidine (PEPCID (PF)) injection 20 mg 01-18 11:30: 00 01-18 10:52 :00 No 20mg 20 mg, Slow IV Push, ONCE, 1 dose, On [place] 01/18/22 at 0630, [facility] ondansetron (ZOFRAN (PF)) injection 4 mg 01-18 11:30: 00 01-18 10:52 :00 No 4mg 4 mg, Slow IV Push, ONCE, 1 dose, On Kath[place] 01/18/22 at 0630, [facility] iodixanoL (VISIPAQUE 270-150 mL) injection 80 mL 01-18 11:21: 00 01-18 11:15 :00 No [id number] 80mL 80 mL, Intravenou s, ONCE, 1 dose, On [place] 01/18/22 at 0630, Routine [facility] NaCl 0.9% (NS) bolus infusion 1,000 mL 01-18 11:15: 00 01-18 12:59 :00 No 1000mL at 999 mL/hr, 1,000 mL, IV Infusion, ONCE, 1 dose, On [place] 01/18/22 at 0615, [place] [facility] morpHINE (4 mg/mL) injection 4 mg 01-18 10:45: 00 01-18 10:52 :00 No 4mg 4 mg, Slow IV Push, ONCE, 1 dose, On [place] 01/18/22 at 0545, STAT [facility] traMADoL 50 mg tablet 01-18 00:00: 00 02-27 00:00 :00 No [id number] 50mg Take 1 tablet by mouth every 6 (six) hours as needed for Pain (scale 7-10). Indication s: acute pain [facility] ondansetron 4 mg disintegrat ing tablet 01-18 00:00: 00 02-27 00:00 :00 No [id number] 4mg Take 1 tablet by mouth every 8 (eight) hours as needed for Nausea and Vomiting (N/V). [facility] ibuprofen 600 mg tablet 01-18 00:00: 00 02-27 00:00 :00 No [id number] 600mg Take 1 tablet by mouth every 6 (six) hours as needed for Pain (scale 4-6). [facility] predniSONE 20 mg tablet 01-16 00:00: 00 01-24 04:59 :00 No [id number] 40mg Take 2 tablets by mouth in the morning for 7 days. [facility] morpHINE (4 mg/mL) injection 4 mg 01-15 16:15: 00 01-15 15:28 :00 No 4mg 4 mg, Slow IV Push, ONCE, 1 dose, On Sat01/15/22 at 1115, [facility] proMETHazin e (PHENERGAN) 12.5 mg in NaCl 0.9% (NS) 50 mL IV piggyback 01-15 15:30: 00 01-15 15:28 :00 No 12.5mg 12.5 mg, IV Piggyback, ONCE, 1 dose, On Sat01/15/22 at 1030, [facility] NaCl 0.9% (NS) bolus infusion 1,000 mL 01-15 15:00: 00 01-15 15:38 :00 No 1000mL at 999 mL/hr, 1,000 mL, IV Infusion, ONCE, 1 dose, On Sat01/15/22 at 1000, [facility] morpHINE (4 mg/mL) injection 4 mg 01-15 15:00: 00 01-15 14:37 :00 No 4mg 4 mg, Slow IV Push, ONCE, 1 dose, On Sat01/15/22 at 1000, [facility] ondansetron (ZOFRAN (PF)) injection 8 mg 01-15 14:15: 00 01-15 14:37 :00 No 8mg 8 mg, Slow IV Push, ONCE, 1 dose, On Sat01/15/22 at 0915, [facility] dexamethaso ne sod phos PF injection 10 mg 01-15 14:15: 01-15 14:37 :00 No 10mg 10 mg, Slow IV Push, ONCE, 1 dose, On Sat01/15/22 at 0915, 1 mL [facility] proMETHazin e 25 mg tablet 01-15 00:00: 00 02-27 00:00 :00 No [id number] 25mg Take 1 tablet by mouth every 6 (six) hours as needed for Nausea and Vomiting (N/V). [facility] ondansetron (ZOFRAN-ODT ) disintegrat ing tablet 4 mg 30 01:45: 00 01-09 00:56 :00 No 4mg 4 mg, Oral, ONCE, 1 dose, On Sat01/08/22 at 2045, Routine [facility] HYDROcodone -acetaminop hen (NORCO 5) 5-325 mg tablet 1 tablet 01-09 00:45: 00 01-09 00:37 :00 No 1{tbl} 1 tablet, Oral, ONCE, 1 dose, On Sat01/08/22 at 1945, [place] [facility] diphenhydrA MINE (BENADRYL) injection 25 mg 01-08 23:45: 00 01-08 23:51 :00 No 25mg 25 mg, Slow IV Push, ONCE, 1 dose, On Sat01/08/22 at 1845, STAT [facility] dexamethaso ne sod phos PF injection 10 mg 01-08 23:45: 00 01-08 23:50 :00 No 10mg 10 mg, Slow IV Push, ONCE, 1 dose, On Sat01/08/22 at 1845, 1 mL [facility] ketorolac (TORADOL) injection 30 mg 01-08 23:45: 00 01-08 23:51 :00 No 30mg 30 mg, Slow IV Push, ONCE, 1 dose, On Sat01/08/22 at 1845, [place] [facility] acetaminoph en (TYLENOL ARTHRITIS PAIN) 650 mg CR tablet 01-08 00:00: 00 04-07 00:00 :00 No [id number] 650mg Take 1 tablet by mouth every 8 (eight) hours as needed for Pain. [facility] ondansetron 4 mg disintegrat ing tablet 01-08 00:00: 00 02-27 00:00 :00 No [id number] 4mg Take 1 tablet by mouth every 8 (eight) hours as needed for Nausea and Vomiting (N/V). [facility] ketorolac 10 mg tablet 01-08 00:00: 00 02-27 00:00 :00 No [id number] 10mg Take 1 tablet by mouth every 6 (six) hours as needed for Pain (scale 4-6) or Pain (scale 7-10). [facility] metaxalone (SKELAXIN) 800 mg tablet 01-08 00:00: 00 02-27 00:00 :00 No [id number] 800mg Take 1 tablet by mouth in the morning and 1 tablet at noon and 1 tablet in the evening. [facility] metroNIDAZO LE 500 mg tablet 12-18 00:00: 00 02-27 00:00 :00 No 500mg Take 1 tablet by mouth every 12 (twelve) hours. [facility] trazodone/d ietary supp. no.8 (TRAZAMINE ORAL) 12-12 15:08: 46 12-12 00:00 :00 No Take by mouth. [facility] diphenhydrA MINE 25 mg capsule 12-12 13:03: 04 Yes 25mg Take 25 mg by mouth every 6 (six) hours as needed for Allergies. [facility] carbamazepi ne (TEGRETOL ORAL) 12-12 13:03: 04 Yes Take by mouth. [facility] traZODone 50 mg tablet 12-12 00:00: 00 02-27 00:00 :00 No [id number] 50mg Take 1 tablet by mouth at bedtime. [facility] SERTraline (ZOLOFT) 50 mg tablet 12-12 00:00: 00 02-27 00:00 :00 No [id number] 50mg Take 1 tablet by mouth in the morning. [facility] sulfamethox azole-trime thoprim (BACTRIM DS) 800-160 mg per tablet 12-12 00:00: 00 12-16 04:59 :00 No [id number] 1{tbl} Take 1 tablet by mouth in the morning and 1 tablet in the evening. Do all this for 3 days. [facility] ibuprofen 600 mg tablet 11-24 00:00: 02-27 00:00 :00 No [id number] 600mg Take 1 tablet by mouth every 6 (six) hours as needed for Pain (scale 4-6). [facility] acetaminoph en-codeine 300-30 mg tablet 11-24 00:00: 00 12-12 00:00 :00 No [id number] 1{tbl} Take 1 tablet by mouth every 4 (four) hours as needed for Pain (scale 4-6). Indication s: acute pain [facility] bromphenira mine-pseudo ephedrine-D M (BROMFED DM) 2-30-10 mg/5 mL syrup 11-18 00:00: 00 03-24 00:00 :00 No [id number] 5mL Take 5 mL by mouth 4 (four) times daily as needed for Congestion /Allergies or Cough. [facility] naproxen 500 mg tablet 11-18 00:00: 00 02-27 00:00 :00 No [id number] 500mg Take 1 tablet by mouth every 8 (eight) hours as needed for Pain (scale 4-6). [facility] cyclobenzap rine 10 mg tablet 11-18 00:00: 00 02-27 00:00 :00 No [id number] 10mg Take 1 tablet by mouth at bedtime as needed for Muscle Spasms. [facility] ibuprofen 100 mg/5 mL oral suspension 10-25 00:00: 00 02-27 00:00 :00 No [id number] 605mg Take 30.25 mL by mouth every 6 (six) hours as needed for Pain (scale 4-6) or Temp > 38.5 C. [facility] acetaminoph en 160 mg/5 mL liquid 10-25 00:00: 00 12-12 00:00 :00 No [id number] 608mg Take 19 mL by mouth every 6 (six) hours as needed for Fever. [facility] DULoxetine 60 mg capsule 10-06 00:00: 00 02-27 00:00 :00 No [facility] traZODone 50 mg tablet 10-06 00:00: 00 12-12 00:00 :00 No [facility] mometasone 50 mcg/actuati on nasal spray 09-28 00:00: 00 02-27 00:00 :00 No [id number] 1{spray } Use 1 Sherman in each nostril 2 (two) times daily. [facility] cetirizine (ZYRTEC) 10 mg tablet 09-25 00:00: 00 02-27 00:00 :00 No [id number] 10mg Take 1 tablet by mouth daily. [facility] DULoxetine 30 mg capsule 09-18 00:00: 00 02-27 00:00 :00 No [facility] gabapentin 300 mg capsule 09-18 00:00: 00 02-27 00:00 :00 No [facility] ondansetron 4 mg tablet 09-18 00:00: 00 02-27 00:00 :00 No [facility] amLODIPine 5 mg tablet 09-01 00:00: 00 02-27 00:00 :00 No 5mg Take 5 mg by mouth. [facility] buPROPion XL 150 mg 24 hr tablet 20 00:00: 00 02-27 00:00 :00 No 150mg Take 150 mg by mouth. [facility] proMETHazin e 25 mg tablet 4-05 00:00: 00 09-12 00:00 :00 No [id number] 25mg Take 1 tablet by mouth every 6 (six) hours as needed for Nausea and Vomiting (N/V). [facility] traMADoL 50 mg tablet 4-05 00:00: 00 09-12 00:00 :00 No [id number] 50mg Take 1 tablet by mouth every 6 (six) hours as needed (pain). Indication s: acute pain [facility] cyclobenzap rine 10 mg tablet 08-07 00:00: 00 08-22 04:59 :00 No [id number] 10mg Take 1 tablet by mouth 3 (three) times daily for 14 days. [facility] ibuprofen 800 mg tablet 08-07 00:00: 00 08-22 04:59 :00 No [id number] 800mg Take 1 tablet by mouth every 6 (six) hours as needed for Pain (scale 1-3) for up to 14 days. [facility] diclofenac 75 mg EC tablet 08-01 00:00: 00 09-12 00:00 :00 No [facility] orphenadrin e 100 mg SR tablet 08-01 00:00: 00 09-12 00:00 :00 No [facility] divalproex 125 mg EC tablet 07-21 00:00: 00 09-12 00:00 :00 No [id number] 125mg Take 1 tablet by mouth every 12 (twelve) hours. [facility] divalproex Sprinkles 125 mg SPRINKLE capsule 07-21 00:00: 00 09-12 00:00 :00 No [facility] ibuprofen 600 mg tablet 3 00:00: 00 08-01 04:59 :00 No [id number] 600mg Take 1 tablet by mouth every 6 (six) hours as needed for Temp > 38.5 C for up to 14 days. [facility] acetaminoph en-codeine 300-30 mg tablet 130 00:00: 00 09-12 00:00 :00 No TAKE 1 TABLET BY MOUTH EVERY 4 HOURS NEEDED FOR PAIN FOR 2 DAYS [facility] fluticasone propionate 110 mcg/actuati on inhaler - 00:00: 00 09-28 00:00 :00 No [id number] 2{puff} Inhale 2 Puffs every 12 (twelve) hours. [facility] benzonatate (TESSALON PERLES) 100 mg capsule 05-25 00:00: 00 09-25 00:00 :00 No [id number] 100mg Take 1 capsule by mouth every 8 (eight) hours as needed for Cough. [facility] carvediloL 25 mg tablet 2020-05 00:00: 00 02-27 00:00 :00 No 25mg Take 1 tablet by mouth 2 (two) times daily with meals. [facility] losartan 50 mg tablet 2020-05 00:00: 00 02-27 00:00 :00 No 50mg Take 1 tablet by mouth 2 (two) times daily. [facility] proMETHazin e 25 mg tablet 2020-05 00:00: 00 09-12 00:00 :00 No [facility] methocarbam oL (ROBAXIN) 500 mg tablet 2020-05 00:00: 00 05-25 00:00 :00 No [id number] 500mg Take 1 tablet by mouth every 6 (six) hours as needed (MUSCLE SPASM). [facility] vitamin B-12 (VITAMIN B-12) 500 mcg tablet 2020-05 00:00: 00 09-12 00:00 :00 No [id number] 500ug Take 1 tablet by mouth daily. [facility] methylPREDN ISolone 4 mg tablets 2020-05 00:00: 00 05-25 00:00 :00 No [id number] Follow package directions [facility] fluticasone propion-chel meteroL 115-21 mcg/actuati on inhaler 02-09 00:00: 00 05-25 00:00 :00 No [id number] 2{puff} Inhale 2 Puffs 2 (two) times daily. Rinse mouth after each use. [facility] albuterol 2.5 mg /3 mL (0.083 %) nebulizer solution 02-09 00:00: 00 05-25 00:00 :00 No [id number] 2.5mg Inhale 3 mL every 6 (six) hours as needed for Wheezing or Shortness of Breath. [facility] methocarbam oL (ROBAXIN) 500 mg tablet 02-09 00:00: 00 05-02 00:00 :00 No [id number] 500mg Take 1 tablet by mouth every 6 (six) hours as needed (MUSCLE SPASM). [facility] bromphenira mine-pseudo ephedrine-D M (BROMFED DM) 2-30-10 mg/5 mL syrup 01-31 00:00: 00 02-09 00:00 :00 No [id number] 5mL Take 5 mL by mouth 4 (four) times daily as needed for Cough. [facility] methylPREDN ISolone (MEDROL, ANABELA,) 4 mg tablets 01-20 00:00: 00 02-09 00:00 :00 No [id number] Take by mouth SEE-INSTRU CTIONS. follow package directions [facility] albuterol 90 mcg/actuati on inhaler 01-12 00:00: 00 05-25 00:00 :00 No [id number] 2{puff} Inhale 2 Puffs every 4 (four) hours as needed for Wheezing or Shortness of Breath. [facility] benzonatate 100 mg capsule 01-12 00:00: 00 02-19 00:00 :00 No [id number] 100mg Take 1 capsule by mouth 3 (three) times daily as needed for Cough. [facility] losartan 50 mg tablet 12-23 00:00: 00 02-09 00:00 :00 No 50mg Take 1 tablet by mouth 2 (two) times daily. [facility] topiramate 25 mg tablet 11-22 00:00: 00 12-26 00:00 :00 No 25mg Take 1 tablet by mouth 2 (two) times daily. [facility] OXcarbazepi ne 150 mg tablet 11-21 00:00: 02-09 00:00 :00 No [facility] FLUoxetine 40 mg capsule -12 00:00: 00 12-26 00:00 :00 No [facility] traZODone 100 mg tablet 12 00:00: 00 12-26 00:00 :00 No [facility] dicyclomine 20 mg tablet 6- 00:00: 00 12-26 00:00 :00 No [id number] 20mg Take 1 tablet by mouth 4 (four) times daily. [facility] proMETHazin e 25 mg tablet 6 00:00: 00 12-26 00:00 :00 No [id number] 25mg Take 1 tablet by mouth every 6 (six) hours as needed for Nausea and Vomiting (N/V). [facility] acetaminoph en-codeine 300-30 mg tablet 05 00:00: 00 12-26 00:00 :00 No TAKE 2 TABLETS BY MOUTH EVERY 6 HOURS NEEDED FOR PAIN [facility] oxybutynin (DITROPAN XL) 10 mg 24 hr tablet 10-09 00:00: 00 12-26 00:00 :00 No [id number] 10mg Take 1 tablet by mouth daily. [facility] ondansetron (ZOFRAN ODT) 4 mg disintegrat ing tablet 10-09 00:00: 00 12-26 00:00 :00 No [id number] 4mg Take 1 tablet by mouth every 8 (eight) hours as needed for Nausea and Vomiting (N/V). [facility] ciprofloxac in HCl 500 mg tablet 30 00:00: 00 11-22 00:00 :00 No [id number] 500mg Take 1 tablet by mouth 2 (two) times daily. [facility] predniSONE 20 mg tablet 525 00:00: 00 11-22 00:00 :00 No [id number] 20mg Take 1 tablet by mouth daily. Days 1-2: 3 pills (60 mg). Days 3-4: 2 pills (40 mg). Days 5-6: 1 pill (20 mg). Days 7-8: 1/2 pill (10 mg). Then stop [facility] mupirocin 2 % ointment 09-29 00:00: 00 12-26 00:00 :00 No [id number] Apply to both nostrils at bedtime [facility] naproxen sodium (ANAPROX DS) 550 mg tablet 09-28 00:00: 00 12-26 00:00 :00 No [id number] 550mg Take 1 tablet by mouth 2 (two) times daily with meals. [facility] losartan 25 mg tablet 09-16 00:00: 00 12-22 00:00 :00 No 25mg Take 1 tablet by mouth 2 (two) times daily. [facility] nadoloL 20 mg tablet 09-16 00:00: 00 12-22 00:00 :00 No [id number] Please take Nadalol 40 mg QAM [facility] LOESTRIN FE (LOESTRIN FE 1/20) 1 mg-20 mcg (21)/75 mg (7) tablet 09-06 00:00: 00 02-09 00:00 :00 No [id number] 1{tbl} Take 1 tablet by mouth daily. [facility] FLUoxetine 20 mg capsule 09-06 00:00: 00 11-22 00:00 :00 No [id number] 20mg Take 1 capsule by mouth daily. [facility] traZODone 50 mg tablet 09-06 00:00: 00 11-22 00:00 :00 No [id number] 50mg Take 1 tablet by mouth at bedtime. [facility] nadoloL 20 mg tablet 08-31 00:00: 00 09-16 00:00 :00 No [id number] Please take Nadalol 40 mg QAM and 20 mg QPM [facility] methocarbam oL (ROBAXIN) 500 mg tablet 4-08 00:00: 00 09-30 00:00 :00 No [id number] 500mg Take 1 tablet by mouth every 6 (six) hours as needed (MUSCLE SPASM). [facility] traMADoL (ULTRAM) 50 mg tablet 4-08 00:00: 00 09-30 00:00 :00 No [id number] 50mg Take 1 tablet by mouth every 6 (six) hours as needed for Pain (scale 7-10). Indication s: acute pain [facility] ibuprofen 800 mg tablet 4-04 00:00: 00 11-22 00:00 :00 No TAKE 1 TABLET BY MOUTH EVERY 12 HOURS NEEDED FOR PAIN [facility] ondansetron (ZOFRAN ODT) 4 mg disintegrat ing tablet 08-01 00:00: 00 09-30 00:00 :00 No [id number] 4mg Take 1 tablet by mouth every 8 (eight) hours as needed for Nausea and Vomiting (N/V). [facility] ketorolac 10 mg tablet 08-01 00:00: 00 09-30 00:00 :00 No [id number] 10mg Take 1 tablet by mouth every 6 (six) hours as needed for Pain (scale 4-6). [facility] ciprofloxac in HCl 250 mg tablet 08-01 00:00: 00 09-30 00:00 :00 No [id number] 250mg Take 1 tablet by mouth 2 (two) times daily. [facility] lidocaine 5 % (700 mg/patch) patch 3 00:00: 00 09-30 00:00 :00 No [id number] 1{patch } Apply 1 Patch to area(s) every 24 (twenty-fo ur) hours as needed for Localized pain. [facility] topiramate 25 mg tablet 1-05 00:00: 00 11-22 00:00 :00 No 25mg Take 1 tablet by mouth 2 (two) times daily. [facility] metoprolol succinate XL 25 mg 24 hr tablet 2019-05 2-21 00:00: 00 06-15 00:00 :00 No [id number] 12.5mg Take 0.5 tablets by mouth 2 (two) times daily for 90 days. [facility] FLUoxetine 20 mg capsule 2019-05 00:00: 09-06 00:00 :00 No 20mg Take 20 mg by mouth daily. [facility] norgestimat e-ethinyl estradiol 0.25-35 mg-mcg per tablet 11-17 00:00: 04-15 00:00 :00 No [id number] 1{tbl} Take 1 tablet by mouth daily. [facility] buPROPion XL (WELLBUTRIN XL) 150 mg 24 hr tablet 08-12 00:00: 01-04 00:00 :00 No [id number] 150mg Take 1 tablet by mouth daily. [facility] acetaminoph en 325 mg tablet 07-22 00:00: 01-04 00:00 :00 No [id number] 650mg Take 2 tablets by mouth every 6 (six) hours as needed for Pain (scale 1-3) or Pain (scale 4-6). [facility] vitamin w/FA tablet 07-22 00:00: 01-04 00:00 :00 No [id number] 1{tbl} Take 1 tablet by mouth daily. [facility] docusate calcium 240 mg capsule 07-22 00:00: 00 01-04 00:00 :00 No [id number] 240mg Take 1 capsule by mouth once daily as needed for Constipati on. [facility] ferrous sulfate 325 mg (65 mg iron) tablet 07-22 00:00: 00 01-04 00:00 :00 No [id number] 325mg Take 1 tablet by mouth 2 (two) times daily. [facility] ibuprofen 600 mg tablet 07-22 00:00: 00 01-04 00:00 :00 No [id number] 600mg Take 1 tablet by mouth every 6 (six) hours as needed (Pain). Take with food or milk. [facility] ALBUTEROL 90 mcg/actuati on inhaler 05-26 00:00: 00 05-01 00:00 :00 No [id number] 103 INHALE 2 PUFFS BY MOUTH EVERY 6 HOURS NEEDED FOR WHEEZING FOR SHORTNESS OF BREATH [facility] buPROPion SR (WELLBUTRIN SR) 150 mg SR tablet 05-21 00:00: 01-04 00:00 :00 No [id number] 150mg Take 1 tablet by mouth 2 (two) times daily. [facility] busPIRone 10 mg tablet 05-21 00:00: 01-04 00:00 :00 No [id number] 109 10mg Take 1 tablet by mouth 3 (three) times daily. [facility] Immunizations Ordered Immunization Name Filled Immunization Name Date Status Comments Source Influenza Virus Vaccine Quad IM, Preserv and ABX Free 6 MO-64 YRS 2022-02-27 00:00:00 Completed [facility] Influenza Virus Vaccine Quad IM, Preserv and ABX Free 6 MO-64 YRS 2022-02-27 00:00:00 Completed [facility] Influenza Virus Vaccine Quad IM, Preserv and ABX Free 6 MO-64 YRS 2022-02-27 00:00:00 Completed [facility] Influenza Virus Vaccine Quad IM, Preserv and ABX Free 6 MO-64 YRS 2022-02-27 00:00:00 Completed [facility] Influenza Virus Vaccine Quad IM, Preserv and ABX Free 6 MO-64 YRS 2022-02-27 00:00:00 Completed [facility] Influenza Virus Vaccine Quad IM, Preserv and ABX Free 6 MO-64 YRS 2022-02-27 00:00:00 Completed [facility] Influenza Virus Vaccine Quad IM, Preserv and ABX Free 6 MO-64 YRS 2022-02-27 00:00:00 Completed [facility] Influenza Virus Vaccine Quad IM, Preserv and ABX Free 6 MO-64 YRS 2022-02-27 00:00:00 Completed [facility] Influenza Virus Vaccine Quad IM, Preserv and ABX Free 6 MO-64 YRS 2022-02-27 00:00:00 Completed [facility] Influenza Virus Vaccine Quad IM, Preserv and ABX Free 6 MO-64 YRS 2022-02-27 00:00:00 Completed [facility] Influenza Virus Vaccine Quad IM, Preserv and ABX Free 6 MO-64 YRS 2022-02-27 00:00:00 Completed [facility] Influenza Virus Vaccine Quad IM, Preserv and ABX Free 6 MO-64 YRS 2022-02-27 00:00:00 Completed [facility] Influenza Virus Vaccine Quad IM, Preserv and ABX Free 6 MO-64 YRS 2022-02-27 00:00:00 Completed [facility] Influenza Virus Vaccine Quad IM, Preserv and ABX Free 6 MO-64 YRS 2022-02-27 00:00:00 Completed [facility] Influenza Virus Vaccine Quad IM, Preserv and ABX Free 6 MO-64 YRS 2022-02-27 00:00:00 Completed [facility] Influenza Virus Vaccine Quad IM, Preserv and ABX Free 6 MO-64 YRS 2022-02-27 00:00:00 Completed [facility] Influenza Virus Vaccine Quad IM, Preserv and ABX Free 6 MO-64 YRS 2022-02-27 00:00:00 Completed [facility] Influenza Virus Vaccine Quad IM, Preserv and ABX Free 6 MO-64 YRS 2022-02-27 00:00:00 Completed [facility] Influenza Virus Vaccine Quad IM, Preserv and ABX Free 6 MO-64 YRS 2022-02-27 00:00:00 Completed [facility] Influenza Virus Vaccine Quad IM, Preserv and ABX Free 6 MO-64 YRS 2022-02-27 00:00:00 Completed [facility] Influenza Virus Vaccine Quad IM, Preserv and ABX Free 6 MO-64 YRS 2022-02-27 00:00:00 Completed [facility] Influenza Virus Vaccine Quad IM, Preserv and ABX Free 6 MO-64 YRS 2022-02-27 00:00:00 Completed [facility] Influenza Virus Vaccine Quad IM, Preserv and ABX Free 6 MO-64 YRS 2022-02-27 00:00:00 Completed [facility] Influenza Virus Vaccine Quad IM, Preserv and ABX Free 6 MO-64 YRS 2022-02-27 00:00:00 Completed [facility] Influenza Virus Vaccine Quad IM, Preserv and ABX Free 6 MO-64 YRS 2022-02-27 00:00:00 Completed [facility] Influenza Virus Vaccine Quad IM, Preserv and ABX Free 6 MO-64 YRS 2022-02-27 00:00:00 Completed [facility] Influenza Virus Vaccine Quad IM, Preserv and ABX Free 6 MO-64 YRS 2022-02-27 00:00:00 Completed [facility] Influenza Virus Vaccine Quad IM, Preserv and ABX Free 6 MO-64 YRS 2022-02-27 00:00:00 Completed [facility] Influenza Virus Vaccine Quad IM, Preserv and ABX Free 6 MO-64 YRS 2022-02-27 00:00:00 Completed [facility] Influenza Virus Vaccine Quad IM, Preserv and ABX Free 6 MO-64 YRS 2022-02-27 00:00:00 Completed [facility] Influenza Virus Vaccine Quad IM, Preserv and ABX Free 6 MO-64 YRS 2022-02-27 00:00:00 Completed [facility] Influenza Virus Vaccine Quad IM, Preserv and ABX Free 6 MO-64 YRS 2022-02-27 00:00:00 Completed [facility] Influenza Virus Vaccine Quad IM, Preserv and ABX Free 6 MO-64 YRS 2022-02-27 00:00:00 Completed [facility] Influenza Virus Vaccine Quad IM, Preserv and ABX Free 6 MO-64 YRS 2022-02-27 00:00:00 Completed [facility] Influenza Virus Vaccine Quad IM, Preserv and ABX Free 6 MO-64 YRS 2022-02-27 00:00:00 Completed [facility] Influenza Virus Vaccine Quad IM, Preserv and ABX Free 6 MO-64 YRS 2022-02-27 00:00:00 Completed [facility] Influenza Virus Vaccine Quad IM, Preserv and ABX Free 6 MO-64 YRS 2022-02-27 00:00:00 Completed [facility] Influenza Virus Vaccine Quad IM, Preserv and ABX Free 6 MO-64 YRS 2022-02-27 00:00:00 Completed [facility] Influenza Virus Vaccine Quad IM, Preserv and ABX Free 6 MO-64 YRS 2022-02-27 00:00:00 Completed [facility] Influenza Virus Vaccine Quad IM, Preserv and ABX Free 6 MO-64 YRS 2022-02-27 00:00:00 Completed [facility] Influenza Virus Vaccine Quad IM, Preserv and ABX Free 6 MO-64 YRS 2022-02-27 00:00:00 Completed [facility] Influenza Virus Vaccine Quad IM, Preserv and ABX Free 6 MO-64 YRS 2022-02-27 00:00:00 Completed [facility] Influenza Virus Vaccine Quad IM, Preserv and ABX Free 6 MO-64 YRS 2022-02-27 00:00:00 Completed [facility] Influenza Virus Vaccine Quad IM, Preserv and ABX Free 6 MO-64 YRS 2022-02-27 00:00:00 Completed [facility] Influenza Virus Vaccine Quad IM, Preserv and ABX Free 6 MO-64 YRS 2022-02-27 00:00:00 Completed [facility] Influenza Virus Vaccine Quad IM, Preserv and ABX Free 6 MO-64 YRS 2022-02-27 00:00:00 Completed [facility] Influenza Virus Vaccine Quad IM, Preserv and ABX Free 6 MO-64 YRS 2022-02-27 00:00:00 Completed [facility] Influenza Virus Vaccine Quad IM, Preserv and ABX Free 6 MO-64 YRS 2022-02-27 00:00:00 Completed [facility] Influenza Virus Vaccine Quad IM, Preserv and ABX Free 6 MO-64 YRS 2022-02-27 00:00:00 Completed [facility] Influenza Virus Vaccine Quad IM, Preserv and ABX Free 6 MO-64 YRS (FLUCELVAX) 2022-02-27 00:00:00 Completed [facility] Influenza Virus Vaccine Quad IM, Preserv and ABX Free 6 MO-64 YRS (FLUCELVAX) 2022-02-27 00:00:00 Completed [facility] Influenza Virus Vaccine Quad IM, Preserv and ABX Free 6 MO-64 YRS (FLUCELVAX) 2022-02-27 00:00:00 Completed [facility] Influenza Virus Vaccine Quad .5 mL IM 6+ MO 2022-02-21 00:00:00 Completed [facility] Influenza Virus Vaccine Quad .5 mL IM 6+ MO 2022-02-21 00:00:00 Completed [facility] Influenza Virus Vaccine Quad .5 mL IM 6+ MO 2022-02-21 00:00:00 Completed [facility] Influenza Virus Vaccine Quad .5 mL IM 6+ MO 2022-02-21 00:00:00 Completed [facility] Influenza Virus Vaccine Quad .5 mL IM 6+ MO 2022-02-21 00:00:00 Completed [facility] Influenza Virus Vaccine Quad .5 mL IM 6+ MO 2022-02-21 00:00:00 Completed [facility] Influenza Virus Vaccine Quad .5 mL IM 6+ MO 2022-02-21 00:00:00 Completed [facility] Influenza Virus Vaccine Quad .5 mL IM 6+ MO 2022-02-21 00:00:00 Completed [facility] Influenza Virus Vaccine Quad .5 mL IM 6+ MO 2022-02-21 00:00:00 Completed [facility] Influenza Virus Vaccine Quad .5 mL IM 6+ MO 2022-02-21 00:00:00 Completed [facility] Influenza Virus Vaccine Quad .5 mL IM 6+ MO 2022-02-21 00:00:00 Completed [facility] Influenza Virus Vaccine Quad .5 mL IM 6+ MO 2022-02-21 00:00:00 Completed [facility] Influenza Virus Vaccine Quad .5 mL IM 6+ MO 2022-02-21 00:00:00 Completed [facility] Influenza Virus Vaccine Quad .5 mL IM 6+ MO (FLUZONE/FLULAVAL/F LUARIX) 2022-02-21 00:00:00 Completed [facility] Influenza Virus Vaccine Quad .5 mL IM 6+ MO (FLUZONE/FLULAVAL/F LUARIX) 2022-02-21 00:00:00 Completed [facility] Influenza Virus Vaccine Quad .5 mL IM 6+ MO (FLUZONE/FLULAVAL/F LUARIX) 2022-02-21 00:00:00 Completed [facility] Influenza Virus Vaccine 2021-06-11 00:00:00 Completed [facility] Influenza Virus Vaccine 2021-06-11 00:00:00 Completed [facility] Influenza Virus Vaccine 2021-06-11 00:00:00 Completed [facility] Influenza Virus Vaccine 2021-06-11 00:00:00 Completed [facility] Influenza Virus Vaccine 2021-06-11 00:00:00 Completed [facility] Influenza Virus Vaccine 2021-06-11 00:00:00 Completed [facility] Influenza Virus Vaccine 2021-06-11 00:00:00 Completed [facility] Influenza Virus Vaccine 2021-06-11 00:00:00 Completed [facility] Influenza Virus Vaccine 2021-06-11 00:00:00 Completed [facility] Influenza Virus Vaccine 2021-06-11 00:00:00 Completed [facility] Influenza Virus Vaccine 2021-06-11 00:00:00 Completed [facility] Influenza Virus Vaccine 2021-06-11 00:00:00 Completed [facility] Influenza Virus Vaccine 2021-06-11 00:00:00 Completed [facility] Influenza Virus Vaccine 2021-06-11 00:00:00 Completed [facility] Influenza Virus Vaccine 2021-06-11 00:00:00 Completed [facility] Influenza Virus Vaccine 2021-06-11 00:00:00 Completed [facility] Influenza Virus Vaccine 2021-06-11 00:00:00 Completed [facility] Influenza Virus Vaccine 2021-06-11 00:00:00 Completed [facility] Influenza Virus Vaccine 2021-06-11 00:00:00 Completed [facility] Influenza Virus Vaccine 2021-06-11 00:00:00 Completed [facility] Influenza Virus Vaccine 2021-06-11 00:00:00 Completed [facility] Influenza Virus Vaccine 2021-06-11 00:00:00 Completed [facility] Influenza Virus Vaccine 2021-06-11 00:00:00 Completed [facility] Influenza Virus Vaccine 2021-06-11 00:00:00 Completed [facility] Influenza Virus Vaccine 2021-06-11 00:00:00 Completed [facility] Influenza Virus Vaccine 2021-06-11 00:00:00 Completed [facility] Influenza Virus Vaccine 2021-06-11 00:00:00 Completed [facility] Influenza Virus Vaccine 2021-06-11 00:00:00 Completed [facility] Influenza Virus Vaccine 2021-06-11 00:00:00 Completed [facility] Influenza Virus Vaccine 2021-06-11 00:00:00 Completed [facility] Influenza Virus Vaccine 2021-06-11 00:00:00 Completed [facility] Influenza Virus Vaccine 2021-06-11 00:00:00 Completed [facility] Influenza Virus Vaccine 2021-06-11 00:00:00 Completed [facility] Influenza Virus Vaccine 2021-06-11 00:00:00 Completed [facility] Influenza Virus Vaccine 2021-06-11 00:00:00 Completed [facility] Influenza Virus Vaccine 2021-06-11 00:00:00 Completed [facility] Influenza Virus Vaccine 2021-06-11 00:00:00 Completed [facility] Influenza Virus Vaccine 2021-06-11 00:00:00 Completed [facility] Influenza Virus Vaccine 2021-06-11 00:00:00 Completed [facility] Influenza Virus Vaccine 2021-06-11 00:00:00 Completed [facility] Influenza Virus Vaccine 2021-06-11 00:00:00 Completed [facility] Influenza Virus Vaccine 2021-06-11 00:00:00 Completed [facility] Influenza Virus Vaccine 2021-06-11 00:00:00 Completed [facility] Influenza Virus Vaccine 2021-06-11 00:00:00 Completed [facility] Influenza Virus Vaccine 2021-06-11 00:00:00 Completed [facility] Influenza Virus Vaccine 2021-06-11 00:00:00 Completed [facility] Influenza Virus Vaccine 2021-06-11 00:00:00 Completed [facility] Influenza Virus Vaccine 2021-06-11 00:00:00 Completed [facility] Influenza Virus Vaccine Quad .5 mL IM 6+ MO 2021-06-11 00:00:00 Completed [facility] Influenza Virus Vaccine 2021-06-11 00:00:00 Completed [facility] Influenza Virus Vaccine Quad .5 mL IM 6+ MO 2021-06-11 00:00:00 Completed [facility] Influenza Virus Vaccine 2021-06-11 00:00:00 Completed [facility] Influenza Virus Vaccine Quad .5 mL IM 6+ MO 2021-06-11 00:00:00 Completed [facility] Influenza Virus Vaccine 2021-06-11 00:00:00 Completed [facility] Influenza Virus Vaccine Quad .5 mL IM 6+ MO 2021-06-11 00:00:00 Completed [facility] Influenza Virus Vaccine 2021-06-11 00:00:00 Completed [facility] Influenza Virus Vaccine Quad .5 mL IM 6+ MO 2021-06-11 00:00:00 Completed [facility] Influenza Virus Vaccine 2021-06-11 00:00:00 Completed [facility] Influenza Virus Vaccine Quad .5 mL IM 6+ MO 2021-06-11 00:00:00 Completed [facility] Influenza Virus Vaccine 2021-06-11 00:00:00 Completed [facility] Influenza Virus Vaccine Quad .5 mL IM 6+ MO 2021-06-11 00:00:00 Completed [facility] Influenza Virus Vaccine 2021-06-11 00:00:00 Completed [facility] Influenza Virus Vaccine Quad .5 mL IM 6+ MO 2021-06-11 00:00:00 Completed [facility] Influenza Virus Vaccine 2021-06-11 00:00:00 Completed [facility] Influenza Virus Vaccine Quad .5 mL IM 6+ MO 2021-06-11 00:00:00 Completed [facility] Influenza Virus Vaccine 2021-06-11 00:00:00 Completed [facility] Influenza Virus Vaccine Quad .5 mL IM 6+ MO 2021-06-11 00:00:00 Completed [facility] Influenza Virus Vaccine 2021-06-11 00:00:00 Completed [facility] Influenza Virus Vaccine Quad .5 mL IM 6+ MO 2021-06-11 00:00:00 Completed [facility] Influenza Virus Vaccine 2021-06-11 00:00:00 Completed [facility] Influenza Virus Vaccine Quad .5 mL IM 6+ MO 2021-06-11 00:00:00 Completed [facility] Influenza Virus Vaccine 2021-06-11 00:00:00 Completed [facility] Influenza Virus Vaccine Quad .5 mL IM 6+ MO 2021-06-11 00:00:00 Completed [facility] Influenza Virus Vaccine 2021-06-11 00:00:00 Completed [facility] Influenza Virus Vaccine Quad .5 mL IM 6+ MO (FLUZONE/FLULAVAL/F LUARIX) 2021-06-11 00:00:00 Completed [facility] Influenza Virus Vaccine 2021-06-11 00:00:00 Completed [facility] Influenza Virus Vaccine Quad .5 mL IM 6+ MO (FLUZONE/FLULAVAL/F LUARIX) 2021-06-11 00:00:00 Completed [facility] Influenza Virus Vaccine 2021-06-11 00:00:00 Completed [facility] Influenza Virus Vaccine Quad .5 mL IM 6+ MO (FLUZONE/FLULAVAL/F LUARIX) 2021-06-11 00:00:00 Completed [facility] Influenza Virus Vaccine 2020-05-19 00:00:00 Completed [facility] Influenza Virus Vaccine 2020-05-19 00:00:00 Completed [facility] Influenza Virus Vaccine 2020-05-19 00:00:00 Completed [facility] Influenza Virus Vaccine 2020-05-19 00:00:00 Completed [facility] Influenza Virus Vaccine 2020-05-19 00:00:00 Completed [facility] Influenza Virus Vaccine 2020-05-19 00:00:00 Completed [facility] Influenza Virus Vaccine 2020-05-19 00:00:00 Completed [facility] Influenza Virus Vaccine 2020-05-19 00:00:00 Completed [facility] Influenza Virus Vaccine 2020-05-19 00:00:00 Completed [facility] Influenza Virus Vaccine 2020-05-19 00:00:00 Completed [facility] Influenza Virus Vaccine 2020-05-19 00:00:00 Completed [facility] Influenza Virus Vaccine 2020-05-19 00:00:00 Completed [facility] Influenza Virus Vaccine 2020-05-19 00:00:00 Completed [facility] Influenza Virus Vaccine 2020-05-19 00:00:00 Completed [facility] Influenza Virus Vaccine 2020-05-19 00:00:00 Completed [facility] Influenza Virus Vaccine 2020-05-19 00:00:00 Completed [facility] Influenza Virus Vaccine 2020-05-19 00:00:00 Completed [facility] Influenza Virus Vaccine 2020-05-19 00:00:00 Completed [facility] Influenza Virus Vaccine 2020-05-19 00:00:00 Completed [facility] Influenza Virus Vaccine 2020-05-19 00:00:00 Completed [facility] Influenza Virus Vaccine 2020-05-19 00:00:00 Completed [facility] Influenza Virus Vaccine 2020-05-19 00:00:00 Completed [facility] Influenza Virus Vaccine 2020-05-19 00:00:00 Completed [facility] Influenza Virus Vaccine 2020-05-19 00:00:00 Completed [facility] Influenza Virus Vaccine 2020-05-19 00:00:00 Completed [facility] Influenza Virus Vaccine 2020-05-19 00:00:00 Completed [facility] Influenza Virus Vaccine 2020-05-19 00:00:00 Completed [facility] Influenza Virus Vaccine 2020-05-19 00:00:00 Completed [facility] Influenza Virus Vaccine 2020-05-19 00:00:00 Completed [facility] Influenza Virus Vaccine 2020-05-19 00:00:00 Completed [facility] Influenza Virus Vaccine 2020-05-19 00:00:00 Completed [facility] Influenza Virus Vaccine 2020-05-19 00:00:00 Completed [facility] Influenza Virus Vaccine 2020-05-19 00:00:00 Completed [facility] Influenza Virus Vaccine 2020-05-19 00:00:00 Completed [facility] Influenza Virus Vaccine 2020-05-19 00:00:00 Completed [facility] Influenza Virus Vaccine 2020-05-19 00:00:00 Completed [facility] Influenza Virus Vaccine 2020-05-19 00:00:00 Completed [facility] Influenza Virus Vaccine 2020-05-19 00:00:00 Completed [facility] Influenza Virus Vaccine 2020-05-19 00:00:00 Completed [facility] Influenza Virus Vaccine 2020-05-19 00:00:00 Completed [facility] Influenza Virus Vaccine 2020-05-19 00:00:00 Completed [facility] Influenza Virus Vaccine 2020-05-19 00:00:00 Completed [facility] Influenza Virus Vaccine 2020-05-19 00:00:00 Completed [facility] Influenza Virus Vaccine 2020-05-19 00:00:00 Completed [facility] Influenza Virus Vaccine 2020-05-19 00:00:00 Completed [facility] Influenza Virus Vaccine 2020-05-19 00:00:00 Completed [facility] Influenza Virus Vaccine 2020-05-19 00:00:00 Completed [facility] Influenza Virus Vaccine 2020-05-19 00:00:00 Completed [facility] Influenza Virus Vaccine 2020-05-19 00:00:00 Completed [facility] Influenza Virus Vaccine 2020-05-19 00:00:00 Completed [facility] Influenza Virus Vaccine 2020-05-19 00:00:00 Completed [facility] Influenza Virus Vaccine 2020-05-19 00:00:00 Completed [facility] Influenza Virus Vaccine 2020-05-19 00:00:00 Completed [facility] Influenza Virus Vaccine 2020-05-19 00:00:00 Completed [facility] Influenza Virus Vaccine 2020-05-19 00:00:00 Completed [facility] Influenza Virus Vaccine 2020-05-19 00:00:00 Completed [facility] Influenza Virus Vaccine 2020-05-19 00:00:00 Completed [facility] Influenza Virus Vaccine 2020-05-19 00:00:00 Completed [facility] Influenza Virus Vaccine 2020-05-19 00:00:00 Completed [facility] Influenza Virus Vaccine 2020-05-19 00:00:00 Completed [facility] Influenza Virus Vaccine 2020-05-19 00:00:00 Completed [facility] Influenza Virus Vaccine 2020-05-19 00:00:00 Completed [facility] Influenza Virus Vaccine 2020-05-19 00:00:00 Completed [facility] Influenza Virus Vaccine Recomb Quad IM, Preserv and ABX Free 18-64 YRS 2020-05-16 00:00:00 Completed [facility] Influenza Virus Vaccine Recomb Quad IM, Preserv and ABX Free 18-64 YRS 2020-05-16 00:00:00 Completed [facility] Influenza Virus Vaccine Recomb Quad IM, Preserv and ABX Free 18-64 YRS 2020-05-16 00:00:00 Completed [facility] Influenza Virus Vaccine Recomb Quad IM, Preserv and ABX Free 18-64 YRS 2020-05-16 00:00:00 Completed [facility] Influenza Virus Vaccine Recomb Quad IM, Preserv and ABX Free 18-64 YRS 2020-05-16 00:00:00 Completed [facility] Influenza Virus Vaccine Recomb Quad IM, Preserv and ABX Free 18-64 YRS 2020-05-16 00:00:00 Completed [facility] Influenza Virus Vaccine Recomb Quad IM, Preserv and ABX Free 18-64 YRS 2020-05-16 00:00:00 Completed [facility] Influenza Virus Vaccine Recomb Quad IM, Preserv and ABX Free 18-64 YRS 2020-05-16 00:00:00 Completed [facility] Influenza Virus Vaccine Recomb Quad IM, Preserv and ABX Free 18-64 YRS 2020-05-16 00:00:00 Completed [facility] Influenza Virus Vaccine Recomb Quad IM, Preserv and ABX Free 18-64 YRS 2020-05-16 00:00:00 Completed [facility] Influenza Virus Vaccine Recomb Quad IM, Preserv and ABX Free 18-64 YRS 2020-05-16 00:00:00 Completed [facility] Influenza Virus Vaccine Recomb Quad IM, Preserv and ABX Free 18-64 YRS 2020-05-16 00:00:00 Completed [facility] Influenza Virus Vaccine Recomb Quad IM, Preserv and ABX Free 18-64 YRS 2020-05-16 00:00:00 Completed [facility] Influenza Virus Vaccine Recomb Quad IM, Preserv and ABX Free 18-64 YRS 2020-05-16 00:00:00 Completed [facility] Influenza Virus Vaccine Recomb Quad IM, Preserv and ABX Free 18-64 YRS 2020-05-16 00:00:00 Completed [facility] Influenza Virus Vaccine Recomb Quad IM, Preserv and ABX Free 18-64 YRS 2020-05-16 00:00:00 Completed [facility] Influenza Virus Vaccine Recomb Quad IM, Preserv and ABX Free 18-64 YRS 2020-05-16 00:00:00 Completed [facility] Influenza Virus Vaccine Recomb Quad IM, Preserv and ABX Free 18-64 YRS 2020-05-16 00:00:00 Completed [facility] Influenza Virus Vaccine Recomb Quad IM, Preserv and ABX Free 18-64 YRS 2020-05-16 00:00:00 Completed [facility] Influenza Virus Vaccine Recomb Quad IM, Preserv and ABX Free 18-64 YRS 2020-05-16 00:00:00 Completed [facility] Influenza Virus Vaccine Recomb Quad IM, Preserv and ABX Free 18-64 YRS 2020-05-16 00:00:00 Completed [facility] Influenza Virus Vaccine Recomb Quad IM, Preserv and ABX Free 18-64 YRS 2020-05-16 00:00:00 Completed [facility] Influenza Virus Vaccine Recomb Quad IM, Preserv and ABX Free 18-64 YRS 2020-05-16 00:00:00 Completed [facility] Influenza Virus Vaccine Recomb Quad IM, Preserv and ABX Free 18-64 YRS 2020-05-16 00:00:00 Completed [facility] Influenza Virus Vaccine Recomb Quad IM, Preserv and ABX Free 18-64 YRS 2020-05-16 00:00:00 Completed [facility] Influenza Virus Vaccine Recomb Quad IM, Preserv and ABX Free 18-64 YRS 2020-05-16 00:00:00 Completed [facility] Influenza Virus Vaccine Recomb Quad IM, Preserv and ABX Free 18-64 YRS 2020-05-16 00:00:00 Completed [facility] Influenza Virus Vaccine Recomb Quad IM, Preserv and ABX Free 18-64 YRS 2020-05-16 00:00:00 Completed [facility] Influenza Virus Vaccine Recomb Quad IM, Preserv and ABX Free 18-64 YRS 2020-05-16 00:00:00 Completed [facility] Influenza Virus Vaccine Recomb Quad IM, Preserv and ABX Free 18-64 YRS 2020-05-16 00:00:00 Completed [facility] Influenza Virus Vaccine Recomb Quad IM, Preserv and ABX Free 18-64 YRS 2020-05-16 00:00:00 Completed [facility] Influenza Virus Vaccine Recomb Quad IM, Preserv and ABX Free 18-64 YRS 2020-05-16 00:00:00 Completed [facility] Influenza Virus Vaccine Recomb Quad IM, Preserv and ABX Free 18-64 YRS 2020-05-16 00:00:00 Completed [facility] Influenza Virus Vaccine Recomb Quad IM, Preserv and ABX Free 18-64 YRS 2020-05-16 00:00:00 Completed [facility] Influenza Virus Vaccine Recomb Quad IM, Preserv and ABX Free 18-64 YRS 2020-05-16 00:00:00 Completed [facility] Influenza Virus Vaccine Recomb Quad IM, Preserv and ABX Free 18-64 YRS 2020-05-16 00:00:00 Completed [facility] Influenza Virus Vaccine Recomb Quad IM, Preserv and ABX Free 18-64 YRS 2020-05-16 00:00:00 Completed [facility] Influenza Virus Vaccine Recomb Quad IM, Preserv and ABX Free 18-64 YRS 2020-05-16 00:00:00 Completed [facility] Influenza Virus Vaccine Recomb Quad IM, Preserv and ABX Free 18-64 YRS 2020-05-16 00:00:00 Completed [facility] Influenza Virus Vaccine Recomb Quad IM, Preserv and ABX Free 18-64 YRS 2020-05-16 00:00:00 Completed [facility] Influenza Virus Vaccine Recomb Quad IM, Preserv and ABX Free 18-64 YRS 2020-05-16 00:00:00 Completed [facility] Influenza Virus Vaccine Recomb Quad IM, Preserv and ABX Free 18-64 YRS 2020-05-16 00:00:00 Completed [facility] Influenza Virus Vaccine Recomb Quad IM, Preserv and ABX Free 18-64 YRS 2020-05-16 00:00:00 Completed [facility] Influenza Virus Vaccine Recomb Quad IM, Preserv and ABX Free 18-64 YRS 2020-05-16 00:00:00 Completed [facility] Influenza Virus Vaccine Recomb Quad IM, Preserv and ABX Free 18-64 YRS 2020-05-16 00:00:00 Completed [facility] Influenza Virus Vaccine Recomb Quad IM, Preserv and ABX Free 18-64 YRS 2020-05-16 00:00:00 Completed [facility] Influenza Virus Vaccine Recomb Quad IM, Preserv and ABX Free 18-64 YRS 2020-05-16 00:00:00 Completed [facility] Influenza Virus Vaccine Recomb Quad IM, Preserv and ABX Free 18-64 YRS 2020-05-16 00:00:00 Completed [facility] Influenza Virus Vaccine Recomb Quad IM, Preserv and ABX Free 18-64 YRS 2020-05-16 00:00:00 Completed [facility] Influenza Virus Vaccine Recomb Quad IM, Preserv and ABX Free 18-64 YRS 2020-05-16 00:00:00 Completed [facility] Influenza Virus Vaccine Recomb Quad IM, Preserv and ABX Free 18-64 YRS 2020-05-16 00:00:00 Completed [facility] Influenza Virus Vaccine Recomb Quad IM, Preserv and ABX Free 18-64 YRS 2020-05-16 00:00:00 Completed [facility] Influenza Virus Vaccine Recomb Quad IM, Preserv and ABX Free 18-64 YRS 2020-05-16 00:00:00 Completed [facility] Influenza Virus Vaccine Recomb Quad IM, Preserv and ABX Free 18-64 YRS 2020-05-16 00:00:00 Completed [facility] Influenza Virus Vaccine Recomb Quad IM, Preserv and ABX Free 18-64 YRS 2020-05-16 00:00:00 Completed [facility] Influenza Virus Vaccine Recomb Quad IM, Preserv and ABX Free 18-64 YRS 2020-05-16 00:00:00 Completed [facility] Influenza Virus Vaccine Recomb Quad IM, Preserv and ABX Free 18-64 YRS 2020-05-16 00:00:00 Completed [facility] Influenza Virus Vaccine Recomb Quad IM, Preserv and ABX Free 18-64 YRS 2020-05-16 00:00:00 Completed [facility] Influenza Virus Vaccine Recomb Quad IM, Preserv and ABX Free 18-64 YRS 2020-05-16 00:00:00 Completed [facility] Influenza Virus Vaccine Recomb Quad IM, Preserv and ABX Free 18-64 YRS 2020-05-16 00:00:00 Completed [facility] Influenza Virus Vaccine Recomb Quad IM, Preserv and ABX Free 18-64 YRS 2020-05-16 00:00:00 Completed [facility] Influenza Virus Vaccine Recomb Quad IM, Preserv and ABX Free 18-64 YRS 2020-05-16 00:00:00 Completed [facility] Influenza Virus Vaccine Recomb Quad IM, Preserv and ABX Free 18-64 YRS 2020-05-16 00:00:00 Completed [facility] TDAP (ADACEL) VACCINE 2019-05-21 00:00:00 Completed [facility] TDAP (ADACEL) VACCINE 2019-05-21 00:00:00 Completed [facility] TDAP (ADACEL) VACCINE 2019-05-21 00:00:00 Completed [facility] TDAP (ADACEL) VACCINE 2019-05-21 00:00:00 Completed [facility] TDAP (ADACEL) VACCINE 2019-05-21 00:00:00 Completed [facility] TDAP (ADACEL) VACCINE 2019-05-21 00:00:00 Completed [facility] TDAP (ADACEL) VACCINE 2019-05-21 00:00:00 Completed [facility] TDAP (ADACEL) VACCINE 2019-05-21 00:00:00 Completed [facility] TDAP (ADACEL) VACCINE 2019-05-21 00:00:00 Completed [facility] TDAP (ADACEL) VACCINE 2019-05-21 00:00:00 Completed [facility] TDAP (ADACEL) VACCINE 2019-05-21 00:00:00 Completed [facility] TDAP (ADACEL) VACCINE 2019-05-21 00:00:00 Completed [facility] TDAP (ADACEL) VACCINE 2019-05-21 00:00:00 Completed [facility] TDAP (ADACEL) VACCINE 2019-05-21 00:00:00 Completed [facility] TDAP (ADACEL) VACCINE 2019-05-21 00:00:00 Completed [facility] TDAP (ADACEL) VACCINE 2019-05-21 00:00:00 Completed [facility] TDAP (ADACEL) VACCINE 2019-05-21 00:00:00 Completed [facility] TDAP (ADACEL) VACCINE 2019-05-21 00:00:00 Completed [facility] TDAP (ADACEL) VACCINE 2019-05-21 00:00:00 Completed [facility] TDAP (ADACEL) VACCINE 2019-05-21 00:00:00 Completed [facility] TDAP (ADACEL) VACCINE 2019-05-21 00:00:00 Completed [facility] TDAP (ADACEL) VACCINE 2019-05-21 00:00:00 Completed [facility] TDAP (ADACEL) VACCINE 2019-05-21 00:00:00 Completed [facility] TDAP (ADACEL) VACCINE 2019-05-21 00:00:00 Completed [facility] TDAP (ADACEL) VACCINE 2019-05-21 00:00:00 Completed [facility] TDAP (ADACEL) VACCINE 2019-05-21 00:00:00 Completed [facility] TDAP (ADACEL) VACCINE 2019-05-21 00:00:00 Completed [facility] TDAP (ADACEL) VACCINE 2019-05-21 00:00:00 Completed [facility] TDAP (ADACEL) VACCINE 2019-05-21 00:00:00 Completed [facility] TDAP (ADACEL) VACCINE 2019-05-21 00:00:00 Completed [facility] TDAP (ADACEL) VACCINE 2019-05-21 00:00:00 Completed [facility] TDAP (ADACEL) VACCINE 2019-05-21 00:00:00 Completed [facility] TDAP (ADACEL) VACCINE 2019-05-21 00:00:00 Completed [facility] TDAP (ADACEL) VACCINE 2019-05-21 00:00:00 Completed [facility] TDAP (ADACEL) VACCINE 2019-05-21 00:00:00 Completed [facility] TDAP (ADACEL) VACCINE 2019-05-21 00:00:00 Completed [facility] TDAP (ADACEL) VACCINE 2019-05-21 00:00:00 Completed [facility] TDAP (ADACEL) VACCINE 2019-05-21 00:00:00 Completed [facility] TDAP (ADACEL) VACCINE 2019-05-21 00:00:00 Completed [facility] TDAP (ADACEL) VACCINE 2019-05-21 00:00:00 Completed [facility] TDAP (ADACEL) VACCINE 2019-05-21 00:00:00 Completed [facility] TDAP (ADACEL) VACCINE 2019-05-21 00:00:00 Completed [facility] TDAP (ADACEL) VACCINE 2019-05-21 00:00:00 Completed [facility] TDAP (ADACEL) VACCINE 2019-05-21 00:00:00 Completed [facility] TDAP (ADACEL) VACCINE 2019-05-21 00:00:00 Completed [facility] TDAP (ADACEL) VACCINE 2019-05-21 00:00:00 Completed [facility] TDAP (ADACEL) VACCINE 2019-05-21 00:00:00 Completed [facility] TDAP (ADACEL) VACCINE 2019-05-21 00:00:00 Completed [facility] TDAP (ADACEL) VACCINE 2019-05-21 00:00:00 Completed [facility] TDAP (ADACEL) VACCINE 2019-05-21 00:00:00 Completed [facility] TDAP (ADACEL) VACCINE 2019-05-21 00:00:00 Completed [facility] TDAP (ADACEL) VACCINE 2019-05-21 00:00:00 Completed [facility] TDAP (ADACEL) VACCINE 2019-05-21 00:00:00 Completed [facility] TDAP (ADACEL) VACCINE 2019-05-21 00:00:00 Completed [facility] TDAP (ADACEL) VACCINE 2019-05-21 00:00:00 Completed [facility] TDAP (ADACEL) VACCINE 2019-05-21 00:00:00 Completed [facility] TDAP (ADACEL) VACCINE 2019-05-21 00:00:00 Completed [facility] TDAP (ADACEL) VACCINE 2019-05-21 00:00:00 Completed [facility] TDAP (ADACEL) VACCINE 2019-05-21 00:00:00 Completed [facility] TDAP (ADACEL) VACCINE 2019-05-21 00:00:00 Completed [facility] TDAP (ADACEL) VACCINE 2019-05-21 00:00:00 Completed [facility] TDAP (ADACEL) VACCINE 2019-05-21 00:00:00 Completed [facility] TDAP (ADACEL) VACCINE 2019-05-21 00:00:00 Completed [facility] Influenza Virus Vaccine Quad .5 mL IM 6+ MO 2019-02-06 00:00:00 Completed [facility] Influenza Virus Vaccine Quad .5 mL IM 6+ MO 2019-02-06 00:00:00 Completed [facility] Influenza Virus Vaccine Quad .5 mL IM 6+ MO 2019-02-06 00:00:00 Completed [facility] Influenza Virus Vaccine Quad .5 mL IM 6+ MO 2019-02-06 00:00:00 Completed [facility] Influenza Virus Vaccine Quad .5 mL IM 6+ MO 2019-02-06 00:00:00 Completed [facility] Influenza Virus Vaccine Quad .5 mL IM 6+ MO 2019-02-06 00:00:00 Completed [facility] Influenza Virus Vaccine Quad .5 mL IM 6+ MO 2019-02-06 00:00:00 Completed [facility] Influenza Virus Vaccine Quad .5 mL IM 6+ MO 2019-02-06 00:00:00 Completed [facility] Influenza Virus Vaccine Quad .5 mL IM 6+ MO 2019-02-06 00:00:00 Completed [facility] Influenza Virus Vaccine Quad .5 mL IM 6+ MO 2019-02-06 00:00:00 Completed [facility] Influenza Virus Vaccine Quad .5 mL IM 6+ MO 2019-02-06 00:00:00 Completed [facility] Influenza Virus Vaccine Quad .5 mL IM 6+ MO 2019-02-06 00:00:00 Completed [facility] Influenza Virus Vaccine Quad .5 mL IM 6+ MO 2019-02-06 00:00:00 Completed [facility] Influenza Virus Vaccine Quad .5 mL IM 6+ MO 2019-02-06 00:00:00 Completed [facility] Influenza Virus Vaccine Quad .5 mL IM 6+ MO 2019-02-06 00:00:00 Completed [facility] Influenza Virus Vaccine Quad .5 mL IM 6+ MO 2019-02-06 00:00:00 Completed [facility] Influenza Virus Vaccine Quad .5 mL IM 6+ MO 2019-02-06 00:00:00 Completed [facility] Influenza Virus Vaccine Quad .5 mL IM 6+ MO 2019-02-06 00:00:00 Completed [facility] Influenza Virus Vaccine Quad .5 mL IM 6+ MO 2019-02-06 00:00:00 Completed [facility] Influenza Virus Vaccine Quad .5 mL IM 6+ MO 2019-02-06 00:00:00 Completed [facility] Influenza Virus Vaccine Quad .5 mL IM 6+ MO 2019-02-06 00:00:00 Completed [facility] Influenza Virus Vaccine Quad .5 mL IM 6+ MO 2019-02-06 00:00:00 Completed [facility] Influenza Virus Vaccine Quad .5 mL IM 6+ MO 2019-02-06 00:00:00 Completed [facility] Influenza Virus Vaccine Quad .5 mL IM 6+ MO 2019-02-06 00:00:00 Completed [facility] Influenza Virus Vaccine Quad .5 mL IM 6+ MO 2019-02-06 00:00:00 Completed [facility] Influenza Virus Vaccine Quad .5 mL IM 6+ MO 2019-02-06 00:00:00 Completed [facility] Influenza Virus Vaccine Quad .5 mL IM 6+ MO 2019-02-06 00:00:00 Completed [facility] Influenza Virus Vaccine Quad .5 mL IM 6+ MO 2019-02-06 00:00:00 Completed [facility] Influenza Virus Vaccine Quad .5 mL IM 6+ MO 2019-02-06 00:00:00 Completed [facility] Influenza Virus Vaccine Quad .5 mL IM 6+ MO 2019-02-06 00:00:00 Completed [facility] Influenza Virus Vaccine Quad .5 mL IM 6+ MO 2019-02-06 00:00:00 Completed [facility] Influenza Virus Vaccine Quad .5 mL IM 6+ MO 2019-02-06 00:00:00 Completed [facility] Influenza Virus Vaccine Quad .5 mL IM 6+ MO 2019-02-06 00:00:00 Completed [facility] Influenza Virus Vaccine Quad .5 mL IM 6+ MO 2019-02-06 00:00:00 Completed [facility] Influenza Virus Vaccine Quad .5 mL IM 6+ MO 2019-02-06 00:00:00 Completed [facility] Influenza Virus Vaccine Quad .5 mL IM 6+ MO 2019-02-06 00:00:00 Completed [facility] Influenza Virus Vaccine Quad .5 mL IM 6+ MO 2019-02-06 00:00:00 Completed [facility] Influenza Virus Vaccine Quad .5 mL IM 6+ MO 2019-02-06 00:00:00 Completed [facility] Influenza Virus Vaccine Quad .5 mL IM 6+ MO 2019-02-06 00:00:00 Completed [facility] Influenza Virus Vaccine Quad .5 mL IM 6+ MO 2019-02-06 00:00:00 Completed [facility] Influenza Virus Vaccine Quad .5 mL IM 6+ MO 2019-02-06 00:00:00 Completed [facility] Influenza Virus Vaccine Quad .5 mL IM 6+ MO 2019-02-06 00:00:00 Completed [facility] Influenza Virus Vaccine Quad .5 mL IM 6+ MO 2019-02-06 00:00:00 Completed [facility] Influenza Virus Vaccine Quad .5 mL IM 6+ MO 2019-02-06 00:00:00 Completed [facility] Influenza Virus Vaccine Quad .5 mL IM 6+ MO 2019-02-06 00:00:00 Completed [facility] Influenza Virus Vaccine Quad .5 mL IM 6+ MO 2019-02-06 00:00:00 Completed [facility] Influenza Virus Vaccine Quad .5 mL IM 6+ MO 2019-02-06 00:00:00 Completed [facility] Influenza Virus Vaccine Quad .5 mL IM 6+ MO 2019-02-06 00:00:00 Completed [facility] Influenza Virus Vaccine Quad .5 mL IM 6+ MO 2019-02-06 00:00:00 Completed [facility] Influenza Virus Vaccine Quad .5 mL IM 6+ MO 2019-02-06 00:00:00 Completed [facility] Influenza Virus Vaccine Quad .5 mL IM 6+ MO 2019-02-06 00:00:00 Completed [facility] Influenza Virus Vaccine Quad .5 mL IM 6+ MO 2019-02-06 00:00:00 Completed [facility] Influenza Virus Vaccine Quad .5 mL IM 6+ MO 2019-02-06 00:00:00 Completed [facility] Influenza Virus Vaccine Quad .5 mL IM 6+ MO 2019-02-06 00:00:00 Completed [facility] Influenza Virus Vaccine Quad .5 mL IM 6+ MO 2019-02-06 00:00:00 Completed [facility] Influenza Virus Vaccine Quad .5 mL IM 6+ MO 2019-02-06 00:00:00 Completed [facility] Influenza Virus Vaccine Quad .5 mL IM 6+ MO 2019-02-06 00:00:00 Completed [facility] Influenza Virus Vaccine Quad .5 mL IM 6+ MO 2019-02-06 00:00:00 Completed [facility] Influenza Virus Vaccine Quad .5 mL IM 6+ MO 2019-02-06 00:00:00 Completed [facility] Influenza Virus Vaccine Quad .5 mL IM 6+ MO 2019-02-06 00:00:00 Completed [facility] Influenza Virus Vaccine Quad .5 mL IM 6+ MO (FLUZONE/FLULAVAL/F LUARIX) 2019-02-06 00:00:00 Completed [facility] Influenza Virus Vaccine Quad .5 mL IM 6+ MO (FLUZONE/FLULAVAL/F LUARIX) 2019-02-06 00:00:00 Completed [facility] Influenza Virus Vaccine Quad .5 mL IM 6+ MO (FLUZONE/FLULAVAL/F LUARIX) 2019-02-06 00:00:00 Completed [facility] Influenza Virus Vaccine Quad .5 mL IM 6+ MO (FLUZONE/FLULAVAL/F LUARIX) Unknown Completed [facility] TDAP (ADACEL) VACCINE Unknown Completed [facility] Influenza Virus Vaccine Recomb Quad IM, Preserv and ABX Free 18-64 YRS Unknown Completed [facility] Influenza Virus Vaccine Unknown Completed [facility] Influenza Virus Vaccine Unknown Completed [facility] Influenza Virus Vaccine Quad IM, Preserv and ABX Free 6 MO-64 YRS (FLUCELVAX) Unknown Completed [facility] Influenza Virus Vaccine Quad .5 mL IM 6+ MO (FLUZONE/FLULAVAL/F LUARIX) Unknown Completed [facility] Influenza Virus Vaccine Quad .5 mL IM 6+ MO (FLUZONE/FLULAVAL/F LUARIX) Unknown Completed [facility] Influenza Virus Vaccine Quad .5 mL IM 6+ MO (FLUZONE/FLULAVAL/F LUARIX) Unknown Completed [facility] TDAP (ADACEL) VACCINE Unknown Completed [facility] Influenza Virus Vaccine Recomb Quad IM, Preserv and ABX Free 18-64 YRS Unknown Completed [facility] Influenza Virus Vaccine Unknown Completed [facility] Influenza Virus Vaccine Unknown Completed [facility] Influenza Virus Vaccine Quad IM, Preserv and ABX Free 6 MO-64 YRS (FLUCELVAX) Unknown Completed [facility] Influenza Virus Vaccine Quad .5 mL IM 6+ MO (FLUZONE/FLULAVAL/F LUARIX) Unknown Completed [facility] Influenza Virus Vaccine Quad .5 mL IM 6+ MO (FLUZONE/FLULAVAL/F LUARIX) Unknown Completed [facility] Influenza Virus Vaccine Quad .5 mL IM 6+ MO (FLUZONE/FLULAVAL/F LUARIX) Unknown Completed [facility] TDAP (ADACEL) VACCINE Unknown Completed [facility] Influenza Virus Vaccine Recomb Quad IM, Preserv and ABX Free 18-64 YRS Unknown Completed [facility] Influenza Virus Vaccine Unknown Completed [facility] Influenza Virus Vaccine Unknown Completed [facility] Influenza Virus Vaccine Quad .5 mL IM 6+ MO (FLUZONE/FLULAVAL/F LUARIX) Unknown Completed [facility] Influenza Virus Vaccine Quad .5 mL IM 6+ MO (FLUZONE/FLULAVAL/F LUARIX) Unknown Completed [facility] TDAP (ADACEL) VACCINE Unknown Completed [facility] Influenza Virus Vaccine Recomb Quad IM, Preserv and ABX Free 18-64 YRS Unknown Completed [facility] Influenza Virus Vaccine Unknown Completed [facility] Influenza Virus Vaccine Unknown Completed [facility] Influenza Virus Vaccine Quad .5 mL IM 6+ MO (FLUZONE/FLULAVAL/F LUARIX) Unknown Completed [facility] Influenza Virus Vaccine Quad .5 mL IM 6+ MO (FLUZONE/FLULAVAL/F LUARIX) Unknown Completed [facility] TDAP (ADACEL) VACCINE Unknown Completed [facility] Influenza Virus Vaccine Recomb Quad IM, Preserv and ABX Free 18-64 YRS Unknown Completed [facility] Influenza Virus Vaccine Unknown Completed [facility] Influenza Virus Vaccine Unknown Completed [facility] Influenza Virus Vaccine Quad .5 mL IM 6+ MO (FLUZONE/FLULAVAL/F LUARIX) Unknown Completed [facility] Influenza Virus Vaccine Quad .5 mL IM 6+ MO (FLUZONE/FLULAVAL/F LUARIX) Unknown Completed [facility] TDAP (ADACEL) VACCINE Unknown Completed [facility] Influenza Virus Vaccine Recomb Quad IM, Preserv and ABX Free 18-64 YRS Unknown Completed [facility] Influenza Virus Vaccine Unknown Completed [facility] Influenza Virus Vaccine Unknown Completed [facility] Influenza Virus Vaccine Quad .5 mL IM 6+ MO (FLUZONE/FLULAVAL/F LUARIX) Unknown Completed [facility] Influenza Virus Vaccine Quad .5 mL IM 6+ MO (FLUZONE/FLULAVAL/F LUARIX) Unknown Completed [facility] TDAP (ADACEL) VACCINE Unknown Completed [facility] Influenza Virus Vaccine Recomb Quad IM, Preserv and ABX Free 18-64 YRS Unknown Completed [facility] Influenza Virus Vaccine Unknown Completed [facility] Influenza Virus Vaccine Unknown Completed [facility] Influenza Virus Vaccine Quad .5 mL IM 6+ MO (FLUZONE/FLULAVAL/F LUARIX) Unknown Completed [facility] Influenza Virus Vaccine Quad .5 mL IM 6+ MO (FLUZONE/FLULAVAL/F LUARIX) Unknown Completed [facility] TDAP (ADACEL) VACCINE Unknown Completed [facility] Influenza Virus Vaccine Recomb Quad IM, Preserv and ABX Free 18-64 YRS Unknown Completed [facility] Influenza Virus Vaccine Unknown Completed [facility] Influenza Virus Vaccine Unknown Completed [facility] Influenza Virus Vaccine Quad .5 mL IM 6+ MO (FLUZONE/FLULAVAL/F LUARIX) Unknown Completed [facility] Influenza Virus Vaccine Quad .5 mL IM 6+ MO (FLUZONE/FLULAVAL/F LUARIX) Unknown Completed [facility] TDAP (ADACEL) VACCINE Unknown Completed [facility] Influenza Virus Vaccine Recomb Quad IM, Preserv and ABX Free 18-64 YRS Unknown Completed [facility] Influenza Virus Vaccine Unknown Completed [facility] Influenza Virus Vaccine Unknown Completed [facility] Influenza Virus Vaccine Quad .5 mL IM 6+ MO (FLUZONE/FLULAVAL/F LUARIX) Unknown Completed [facility] Influenza Virus Vaccine Quad .5 mL IM 6+ MO (FLUZONE/FLULAVAL/F LUARIX) Unknown Completed [facility] TDAP (ADACEL) VACCINE Unknown Completed [facility] Influenza Virus Vaccine Recomb Quad IM, Preserv and ABX Free 18-64 YRS Unknown Completed [facility] Influenza Virus Vaccine Unknown Completed [facility] Influenza Virus Vaccine Unknown Completed [facility] Influenza Virus Vaccine Quad .5 mL IM 6+ MO (FLUZONE/FLULAVAL/F LUARIX) Unknown Completed [facility] Influenza Virus Vaccine Quad .5 mL IM 6+ MO (FLUZONE/FLULAVAL/F LUARIX) Unknown Completed [facility] TDAP (ADACEL) VACCINE Unknown Completed [facility] Influenza Virus Vaccine Recomb Quad IM, Preserv and ABX Free 18-64 YRS Unknown Completed [facility] Influenza Virus Vaccine Unknown Completed [facility] Influenza Virus Vaccine Unknown Completed [facility] Influenza Virus Vaccine Quad .5 mL IM 6+ MO (FLUZONE/FLULAVAL/F LUARIX) Unknown Completed [facility] Influenza Virus Vaccine Quad .5 mL IM 6+ MO (FLUZONE/FLULAVAL/F LUARIX) Unknown Completed [facility] TDAP (ADACEL) VACCINE Unknown Completed [facility] Influenza Virus Vaccine Recomb Quad IM, Preserv and ABX Free 18-64 YRS Unknown Completed [facility] Influenza Virus Vaccine Unknown Completed [facility] Influenza Virus Vaccine Unknown Completed [facility] Influenza Virus Vaccine Quad .5 mL IM 6+ MO (FLUZONE/FLULAVAL/F LUARIX) Unknown Completed [facility] Influenza Virus Vaccine Quad .5 mL IM 6+ MO (FLUZONE/FLULAVAL/F LUARIX) Unknown Completed [facility] TDAP (ADACEL) VACCINE Unknown Completed [facility] Influenza Virus Vaccine Recomb Quad IM, Preserv and ABX Free 18-64 YRS Unknown Completed [facility] Influenza Virus Vaccine Unknown Completed [facility] Influenza Virus Vaccine Unknown Completed [facility] Influenza Virus Vaccine Quad .5 mL IM 6+ MO (FLUZONE/FLULAVAL/F LUARIX) Unknown Completed [facility] Influenza Virus Vaccine Quad .5 mL IM 6+ MO (FLUZONE/FLULAVAL/F LUARIX) Unknown Completed [facility] TDAP (ADACEL) VACCINE Unknown Completed [facility] Influenza Virus Vaccine Recomb Quad IM, Preserv and ABX Free 18-64 YRS Unknown Completed [facility] Influenza Virus Vaccine Unknown Completed [facility] Influenza Virus Vaccine Unknown Completed [facility] Influenza Virus Vaccine Quad .5 mL IM 6+ MO (FLUZONE/FLULAVAL/F LUARIX) Unknown Completed [facility] Influenza Virus Vaccine Quad .5 mL IM 6+ MO (FLUZONE/FLULAVAL/F LUARIX) Unknown Completed [facility] TDAP (ADACEL) VACCINE Unknown Completed [facility] Influenza Virus Vaccine Recomb Quad IM, Preserv and ABX Free 18-64 YRS Unknown Completed [facility] Influenza Virus Vaccine Unknown Completed [facility] Influenza Virus Vaccine Unknown Completed [facility] Influenza Virus Vaccine Quad .5 mL IM 6+ MO (FLUZONE/FLULAVAL/F LUARIX) Unknown Completed [facility] Influenza Virus Vaccine Quad .5 mL IM 6+ MO (FLUZONE/FLULAVAL/F LUARIX) Unknown Completed [facility] TDAP (ADACEL) VACCINE Unknown Completed [facility] Influenza Virus Vaccine Recomb Quad IM, Preserv and ABX Free 18-64 YRS Unknown Completed [facility] Influenza Virus Vaccine Unknown Completed [facility] Influenza Virus Vaccine Unknown Completed [facility] Influenza Virus Vaccine Quad .5 mL IM 6+ MO (FLUZONE/FLULAVAL/F LUARIX) Unknown Completed [facility] Influenza Virus Vaccine Quad .5 mL IM 6+ MO (FLUZONE/FLULAVAL/F LUARIX) Unknown Completed [facility] TDAP (ADACEL) VACCINE Unknown Completed [facility] Influenza Virus Vaccine Recomb Quad IM, Preserv and ABX Free 18-64 YRS Unknown Completed [facility] Influenza Virus Vaccine Unknown Completed [facility] Influenza Virus Vaccine Unknown Completed [facility] Influenza Virus Vaccine Quad .5 mL IM 6+ MO (FLUZONE/FLULAVAL/F LUARIX) Unknown Completed [facility] Influenza Virus Vaccine Quad .5 mL IM 6+ MO (FLUZONE/FLULAVAL/F LUARIX) Unknown Completed [facility] TDAP (ADACEL) VACCINE Unknown Completed [facility] Influenza Virus Vaccine Recomb Quad IM, Preserv and ABX Free 18-64 YRS Unknown Completed [facility] Influenza Virus Vaccine Unknown Completed [facility] Influenza Virus Vaccine Unknown Completed [facility] Influenza Virus Vaccine Quad .5 mL IM 6+ MO (FLUZONE/FLULAVAL/F LUARIX) Unknown Completed [facility] Influenza Virus Vaccine Quad .5 mL IM 6+ MO (FLUZONE/FLULAVAL/F LUARIX) Unknown Completed [facility] TDAP (ADACEL) VACCINE Unknown Completed [facility] Influenza Virus Vaccine Recomb Quad IM, Preserv and ABX Free 18-64 YRS Unknown Completed [facility] Influenza Virus Vaccine Unknown Completed [facility] Influenza Virus Vaccine Quad .5 mL IM 6+ MO (FLUZONE/FLULAVAL/F LUARIX) Unknown Completed [facility] TDAP (ADACEL) VACCINE Unknown Completed [facility] Influenza Virus Vaccine Recomb Quad IM, Preserv and ABX Free 18-64 YRS Unknown Completed [facility] Influenza Virus Vaccine Unknown Completed [facility] Influenza Virus Vaccine Quad .5 mL IM 6+ MO (FLUZONE/FLULAVAL/F LUARIX) Unknown Completed [facility] TDAP (ADACEL) VACCINE Unknown Completed [facility] Influenza Virus Vaccine Recomb Quad IM, Preserv and ABX Free 18-64 YRS Unknown Completed [facility] Influenza Virus Vaccine Unknown Completed [facility] Influenza Virus Vaccine Quad .5 mL IM 6+ MO (FLUZONE/FLULAVAL/F LUARIX) Unknown Completed [facility] TDAP (ADACEL) VACCINE Unknown Completed [facility] Influenza Virus Vaccine Recomb Quad IM, Preserv and ABX Free 18-64 YRS Unknown Completed [facility] Influenza Virus Vaccine Unknown Completed [facility] Influenza Virus Vaccine Quad .5 mL IM 6+ MO (FLUZONE/FLULAVAL/F LUARIX) Unknown Completed [facility] TDAP (ADACEL) VACCINE Unknown Completed [facility] Influenza Virus Vaccine Recomb Quad IM, Preserv and ABX Free 18-64 YRS Unknown Completed [facility] Influenza Virus Vaccine Unknown Completed [facility] Influenza Virus Vaccine Quad .5 mL IM 6+ MO (FLUZONE/FLULAVAL/F LUARIX) Unknown Completed [facility] TDAP (ADACEL) VACCINE Unknown Completed [facility] Influenza Virus Vaccine Recomb Quad IM, Preserv and ABX Free 18-64 YRS Unknown Completed [facility] Influenza Virus Vaccine Unknown Completed [facility] Influenza Virus Vaccine Quad .5 mL IM 6+ MO (FLUZONE/FLULAVAL/F LUARIX) Unknown Completed [facility] TDAP (ADACEL) VACCINE Unknown Completed [facility] Influenza Virus Vaccine Recomb Quad IM, Preserv and ABX Free 18-64 YRS Unknown Completed [facility] Influenza Virus Vaccine Unknown Completed [facility] Influenza Virus Vaccine Quad .5 mL IM 6+ MO (FLUZONE/FLULAVAL/F LUARIX) Unknown Completed [facility] TDAP (ADACEL) VACCINE Unknown Completed [facility] Influenza Virus Vaccine Recomb Quad IM, Preserv and ABX Free 18-64 YRS Unknown Completed [facility] Influenza Virus Vaccine Unknown Completed [facility] Influenza Virus Vaccine Quad .5 mL IM 6+ MO (FLUZONE/FLULAVAL/F LUARIX) Unknown Completed [facility] TDAP (ADACEL) VACCINE Unknown Completed [facility] Influenza Virus Vaccine Recomb Quad IM, Preserv and ABX Free 18-64 YRS Unknown Completed [facility] Influenza Virus Vaccine Unknown Completed [facility] Influenza Virus Vaccine Quad .5 mL IM 6+ MO (FLUZONE/FLULAVAL/F LUARIX) Unknown Completed [facility] TDAP (ADACEL) VACCINE Unknown Completed [facility] Influenza Virus Vaccine Recomb Quad IM, Preserv and ABX Free 18-64 YRS Unknown Completed [facility] Influenza Virus Vaccine Unknown Completed [facility] Influenza Virus Vaccine Quad .5 mL IM 6+ MO (FLUZONE/FLULAVAL/F LUARIX) Unknown Completed [facility] TDAP (ADACEL) VACCINE Unknown Completed [facility] Influenza Virus Vaccine Recomb Quad IM, Preserv and ABX Free 18-64 YRS Unknown Completed [facility] Influenza Virus Vaccine Unknown Completed [facility] Influenza Virus Vaccine Quad .5 mL IM 6+ MO (FLUZONE/FLULAVAL/F LUARIX) Unknown Completed [facility] TDAP (ADACEL) VACCINE Unknown Completed [facility] Influenza Virus Vaccine Recomb Quad IM, Preserv and ABX Free 18-64 YRS Unknown Completed [facility] Influenza Virus Vaccine Unknown Completed [facility] Influenza Virus Vaccine Quad .5 mL IM 6+ MO (FLUZONE/FLULAVAL/F LUARIX) Unknown Completed [facility] TDAP (ADACEL) VACCINE Unknown Completed [facility] Influenza Virus Vaccine Recomb Quad IM, Preserv and ABX Free 18-64 YRS Unknown Completed [facility] Influenza Virus Vaccine Unknown Completed [facility] Influenza Virus Vaccine Quad .5 mL IM 6+ MO (FLUZONE/FLULAVAL/F LUARIX) Unknown Completed [facility] TDAP (ADACEL) VACCINE Unknown Completed [facility] Influenza Virus Vaccine Recomb Quad IM, Preserv and ABX Free 18-64 YRS Unknown Completed [facility] Influenza Virus Vaccine Unknown Completed [facility] Influenza Virus Vaccine Quad .5 mL IM 6+ MO (FLUZONE/FLULAVAL/F LUARIX) Unknown Completed [facility] TDAP (ADACEL) VACCINE Unknown Completed [facility] Influenza Virus Vaccine Recomb Quad IM, Preserv and ABX Free 18-64 YRS Unknown Completed [facility] Influenza Virus Vaccine Unknown Completed [facility] Influenza Virus Vaccine Quad .5 mL IM 6+ MO (FLUZONE/FLULAVAL/F LUARIX) Unknown Completed [facility] TDAP (ADACEL) VACCINE Unknown Completed [facility] Influenza Virus Vaccine Recomb Quad IM, Preserv and ABX Free 18-64 YRS Unknown Completed [facility] Influenza Virus Vaccine Unknown Completed [facility] Influenza Virus Vaccine Quad .5 mL IM 6+ MO (FLUZONE/FLULAVAL/F LUARIX) Unknown Completed [facility] TDAP (ADACEL) VACCINE Unknown Completed [facility] Influenza Virus Vaccine Recomb Quad IM, Preserv and ABX Free 18-64 YRS Unknown Completed [facility] Influenza Virus Vaccine Unknown Completed [facility] Influenza Virus Vaccine Quad .5 mL IM 6+ MO (FLUZONE/FLULAVAL/F LUARIX) Unknown Completed [facility] TDAP (ADACEL) VACCINE Unknown Completed [facility] Influenza Virus Vaccine Recomb Quad IM, Preserv and ABX Free 18-64 YRS Unknown Completed [facility] Influenza Virus Vaccine Unknown Completed [facility] Influenza Virus Vaccine Quad .5 mL IM 6+ MO (FLUZONE/FLULAVAL/F LUARIX) Unknown Completed [facility] TDAP (ADACEL) VACCINE Unknown Completed [facility] Influenza Virus Vaccine Recomb Quad IM, Preserv and ABX Free 18-64 YRS Unknown Completed [facility] Influenza Virus Vaccine Unknown Completed [facility] Influenza Virus Vaccine Quad .5 mL IM 6+ MO (FLUZONE/FLULAVAL/F LUARIX) Unknown Completed [facility] TDAP (ADACEL) VACCINE Unknown Completed [facility] Influenza Virus Vaccine Recomb Quad IM, Preserv and ABX Free 18-64 YRS Unknown Completed [facility] Influenza Virus Vaccine Unknown Completed [facility] Influenza Virus Vaccine Quad .5 mL IM 6+ MO (FLUZONE/FLULAVAL/F LUARIX) Unknown Completed [facility] TDAP (ADACEL) VACCINE Unknown Completed [facility] Influenza Virus Vaccine Recomb Quad IM, Preserv and ABX Free 18-64 YRS Unknown Completed [facility] Influenza Virus Vaccine Unknown Completed [facility] Influenza Virus Vaccine Quad .5 mL IM 6+ MO (FLUZONE/FLULAVAL/F LUARIX) Unknown Completed [facility] TDAP (ADACEL) VACCINE Unknown Completed [facility] Influenza Virus Vaccine Recomb Quad IM, Preserv and ABX Free 18-64 YRS Unknown Completed [facility] Influenza Virus Vaccine Unknown Completed [facility] Influenza Virus Vaccine Quad .5 mL IM 6+ MO (FLUZONE/FLULAVAL/F LUARIX) Unknown Completed [facility] TDAP (ADACEL) VACCINE Unknown Completed [facility] Influenza Virus Vaccine Recomb Quad IM, Preserv and ABX Free 18-64 YRS Unknown Completed [facility] Influenza Virus Vaccine Unknown Completed [facility] Influenza Virus Vaccine Quad .5 mL IM 6+ MO (FLUZONE/FLULAVAL/F LUARIX) Unknown Completed [facility] TDAP (ADACEL) VACCINE Unknown Completed [facility] Influenza Virus Vaccine Recomb Quad IM, Preserv and ABX Free 18-64 YRS Unknown Completed [facility] Influenza Virus Vaccine Unknown Completed [facility] Influenza Virus Vaccine Quad .5 mL IM 6+ MO (FLUZONE/FLULAVAL/F LUARIX) Unknown Completed [facility] TDAP (ADACEL) VACCINE Unknown Completed [facility] Influenza Virus Vaccine Recomb Quad IM, Preserv and ABX Free 18-64 YRS Unknown Completed [facility] Influenza Virus Vaccine Unknown Completed [facility] Influenza Virus Vaccine Quad .5 mL IM 6+ MO (FLUZONE/FLULAVAL/F LUARIX) Unknown Completed [facility] TDAP (ADACEL) VACCINE Unknown Completed [facility] Influenza Virus Vaccine Recomb Quad IM, Preserv and ABX Free 18-64 YRS Unknown Completed [facility] Influenza Virus Vaccine Unknown Completed [facility] Influenza Virus Vaccine Quad .5 mL IM 6+ MO (FLUZONE/FLULAVAL/F LUARIX) Unknown Completed [facility] TDAP (ADACEL) VACCINE Unknown Completed [facility] Influenza Virus Vaccine Recomb Quad IM, Preserv and ABX Free 18-64 YRS Unknown Completed [facility] Influenza Virus Vaccine Unknown Completed [facility] Influenza Virus Vaccine Quad .5 mL IM 6+ MO (FLUZONE/FLULAVAL/F LUARIX) Unknown Completed [facility] TDAP (ADACEL) VACCINE Unknown Completed [facility] Influenza Virus Vaccine Recomb Quad IM, Preserv and ABX Free 18-64 YRS Unknown Completed [facility] Influenza Virus Vaccine Unknown Completed [facility] Influenza Virus Vaccine Quad .5 mL IM 6+ MO (FLUZONE/FLULAVAL/F LUARIX) Unknown Completed [facility] TDAP (ADACEL) VACCINE Unknown Completed [facility] Influenza Virus Vaccine Recomb Quad IM, Preserv and ABX Free 18-64 YRS Unknown Completed [facility] Influenza Virus Vaccine Unknown Completed [facility] Influenza Virus Vaccine Quad .5 mL IM 6+ MO (FLUZONE/FLULAVAL/F LUARIX) Unknown Completed [facility] TDAP (ADACEL) VACCINE Unknown Completed [facility] Influenza Virus Vaccine Recomb Quad IM, Preserv and ABX Free 18-64 YRS Unknown Completed [facility] Influenza Virus Vaccine Unknown Completed [facility] Influenza Virus Vaccine Quad .5 mL IM 6+ MO (FLUZONE/FLULAVAL/F LUARIX) Unknown Completed [facility] TDAP (ADACEL) VACCINE Unknown Completed [facility] Influenza Virus Vaccine Recomb Quad IM, Preserv and ABX Free 18-64 YRS Unknown Completed [facility] Influenza Virus Vaccine Unknown Completed [facility] Influenza Virus Vaccine Quad .5 mL IM 6+ MO (FLUZONE/FLULAVAL/F LUARIX) Unknown Completed [facility] TDAP (ADACEL) VACCINE Unknown Completed [facility] Influenza Virus Vaccine Recomb Quad IM, Preserv and ABX Free 18-64 YRS Unknown Completed [facility] Influenza Virus Vaccine Unknown Completed [facility] Influenza Virus Vaccine Quad .5 mL IM 6+ MO (FLUZONE/FLULAVAL/F LUARIX) Unknown Completed [facility] TDAP (ADACEL) VACCINE Unknown Completed [facility] Influenza Virus Vaccine Recomb Quad IM, Preserv and ABX Free 18-64 YRS Unknown Completed [facility] Influenza Virus Vaccine Unknown Completed [facility] Influenza Virus Vaccine Quad .5 mL IM 6+ MO (FLUZONE/FLULAVAL/F LUARIX) Unknown Completed [facility] TDAP (ADACEL) VACCINE Unknown Completed [facility] Influenza Virus Vaccine Recomb Quad IM, Preserv and ABX Free 18-64 YRS Unknown Completed [facility] Influenza Virus Vaccine Unknown Completed [facility] Influenza Virus Vaccine Quad .5 mL IM 6+ MO (FLUZONE/FLULAVAL/F LUARIX) Unknown Completed [facility] TDAP (ADACEL) VACCINE Unknown Completed [facility] Influenza Virus Vaccine Recomb Quad IM, Preserv and ABX Free 18-64 YRS Unknown Completed [facility] Influenza Virus Vaccine Unknown Completed [facility] Influenza Virus Vaccine Quad .5 mL IM 6+ MO (FLUZONE/FLULAVAL/F LUARIX) Unknown Completed [facility] TDAP (ADACEL) VACCINE Unknown Completed [facility] Influenza Virus Vaccine Recomb Quad IM, Preserv and ABX Free 18-64 YRS Unknown Completed [facility] Influenza Virus Vaccine Unknown Completed [facility] Influenza Virus Vaccine Quad .5 mL IM 6+ MO (FLUZONE/FLULAVAL/F LUARIX) Unknown Completed [facility] TDAP (ADACEL) VACCINE Unknown Completed [facility] Influenza Virus Vaccine Quad .5 mL IM 6+ MO (FLUZONE/FLULAVAL/F LUARIX) Unknown Completed [facility] TDAP (ADACEL) VACCINE Unknown Completed [facility] Influenza Virus Vaccine Quad .5 mL IM 6+ MO (FLUZONE/FLULAVAL/F LUARIX) Unknown Completed [facility] TDAP (ADACEL) VACCINE Unknown Completed [facility] Influenza Virus Vaccine Quad .5 mL IM 6+ MO (FLUZONE/FLULAVAL/F LUARIX) Unknown Completed [facility] TDAP (ADACEL) VACCINE Unknown Completed [facility] Influenza Virus Vaccine Quad .5 mL IM 6+ MO (FLUZONE/FLULAVAL/F LUARIX) Unknown Completed [facility] TDAP (ADACEL) VACCINE Unknown Completed [facility] Influenza Virus Vaccine Quad .5 mL IM 6+ MO (FLUZONE/FLULAVAL/F LUARIX) Unknown Completed [facility] TDAP (ADACEL) VACCINE Unknown Completed [facility] Influenza Virus Vaccine Quad .5 mL IM 6+ MO (FLUZONE/FLULAVAL/F LUARIX) Unknown Completed [facility] TDAP (ADACEL) VACCINE Unknown Completed [facility] Influenza Virus Vaccine Quad .5 mL IM 6+ MO (FLUZONE/FLULAVAL/F LUARIX) Unknown Completed [facility] TDAP (ADACEL) VACCINE Unknown Completed [facility] Influenza Virus Vaccine Quad .5 mL IM 6+ MO (FLUZONE/FLULAVAL/F LUARIX) Unknown Completed [facility] TDAP (ADACEL) VACCINE Unknown Completed [facility] Influenza Virus Vaccine Quad .5 mL IM 6+ MO (FLUZONE/FLULAVAL/F LUARIX) Unknown Completed [facility] TDAP (ADACEL) VACCINE Unknown Completed [facility] Influenza Virus Vaccine Recomb Quad IM, Preserv and ABX Free 18-64 YRS Unknown Completed [facility] Influenza Virus Vaccine Unknown Completed [facility] Influenza Virus Vaccine Unknown Completed [facility] Influenza Virus Vaccine Quad IM, Preserv and ABX Free 6 MO-64 YRS (FLUCELVAX) Unknown Completed [facility] Influenza Virus Vaccine Quad .5 mL IM 6+ MO (FLUZONE/FLULAVAL/F LUARIX) Unknown Completed [facility] Influenza Virus Vaccine Quad .5 mL IM 6+ MO (FLUZONE/FLULAVAL/F LUARIX) Unknown Completed [facility] Influenza Virus Vaccine Quad .5 mL IM 6+ MO (FLUZONE/FLULAVAL/F LUARIX) Unknown Completed [facility] TDAP (ADACEL) VACCINE Unknown Completed [facility] Influenza Virus Vaccine Recomb Quad IM, Preserv and ABX Free 18-64 YRS Unknown Completed [facility] Influenza Virus Vaccine Unknown Completed [facility] Influenza Virus Vaccine Unknown Completed [facility] Influenza Virus Vaccine Quad IM, Preserv and ABX Free 6 MO-64 YRS (FLUCELVAX) Unknown Completed [facility] Influenza Virus Vaccine Quad .5 mL IM 6+ MO (FLUZONE/FLULAVAL/F LUARIX) Unknown Completed [facility] Influenza Virus Vaccine Quad .5 mL IM 6+ MO (FLUZONE/FLULAVAL/F LUARIX) Unknown Completed [facility] Influenza Virus Vaccine Quad .5 mL IM 6+ MO (FLUZONE/FLULAVAL/F LUARIX) Unknown Completed [facility] TDAP (ADACEL) VACCINE Unknown Completed [facility] Influenza Virus Vaccine Recomb Quad IM, Preserv and ABX Free 18-64 YRS Unknown Completed [facility] Influenza Virus Vaccine Unknown Completed [facility] Influenza Virus Vaccine Unknown Completed [facility] Influenza Virus Vaccine Quad IM, Preserv and ABX Free 6 MO-64 YRS (FLUCELVAX) Unknown Completed [facility] Influenza Virus Vaccine Quad .5 mL IM 6+ MO (FLUZONE/FLULAVAL/F LUARIX) Unknown Completed [facility] Influenza Virus Vaccine Quad .5 mL IM 6+ MO (FLUZONE/FLULAVAL/F LUARIX) Unknown Completed [facility] Vital Signs Vital Name Observation Time Observation Value Comments S ourlarry Systolic blood pressure 2023-05-19 17:24:00 129 mm[Hg] [facility] Diastolic blood pressure 2023-05-19 17:24:00 83 mm[Hg] [facility] Heart rate 2023-05-19 17:24:00 77 /min [facility] Respiratory rate 2023-05-19 17:24:00 15 /min [facility] Oxygen saturation in Arterial blood by Pulse oximetry 2023-05-19 17:24:00 100 /min [facility] Body temperature 2023-05-19 14:50:00 37.28 Irene [facility] Body height 2023-05-19 14:50:00 154.9 cm [facility] Body weight 2023-05-19 14:50:00 58.968 kg [facility] BMI 2023-05-19 14:50:00 24.56 kg/m2 [facility] Systolic blood pressure 2023-01-15 16:56:00 132 mm[Hg] [facility] Diastolic blood pressure 2023-01-15 16:56:00 91 mm[Hg] [facility] Heart rate 2023-01-15 16:56:00 67 /min [facility] Body temperature 2023-01-15 16:56:00 36.78 Irene [facility] Respiratory rate 2023-01-15 16:56:00 20 /min [facility] Oxygen saturation in Arterial blood by Pulse oximetry 2023-01-15 16:56:00 100 /min [facility] Body height 2023-01-12 09:05:00 154.9 cm [facility] Body weight 2023-01-12 09:05:00 58.968 kg [facility] BMI 2023-01-12 09:05:00 24.56 kg/m2 [facility] Systolic blood pressure 2022-11-21 21:40:00 122 mm[Hg] [facility] Diastolic blood pressure 2022-11-21 21:40:00 90 mm[Hg] [facility] Heart rate 2022-11-21 21:40:00 92 /min [facility] Respiratory rate 2022-11-21 21:40:00 16 /min [facility] Oxygen saturation in Arterial blood by Pulse oximetry 2022-11-21 21:40:00 99 /min [facility] Body temperature 2022-11-21 18:07:00 37.28 Irene [facility] Body weight 2022-11-21 18:07:00 68.04 kg [facility] BMI 2022-11-21 18:07:00 28.34 kg/m2 [facility] Systolic blood pressure 2022-09-05 17:22:00 139 mm[Hg] [facility] Diastolic blood pressure 2022-09-05 17:22:00 91 mm[Hg] [facility] Heart rate 2022-09-05 17:22:00 120 /min [facility] Respiratory rate 2022-09-05 17:22:00 18 /min [facility] Oxygen saturation in Arterial blood by Pulse oximetry 2022-09-05 17:22:00 99 /min [facility] Body temperature 2022-09-05 13:43:00 37.11 [facility] Body weight 2022-09-05 13:43:00 68.04 kg [facility] BMI 2022-09-05 13:43:00 28.34 kg/m2 [facility] Systolic blood pressure 2022-08-01 00:49:00 138 mm[Hg] [facility] Diastolic blood pressure 2022-08-01 00:49:00 104 mm[Hg] [facility] Heart rate 2022-08-01 00:49:00 108 /min [facility] Respiratory rate 2022-08-01 00:49:00 18 /min [facility] Oxygen saturation in Arterial blood by Pulse oximetry 2022-08-01 00:49:00 99 /min [facility] Body temperature 2022-07-31 22:52:00 37.11 [facility] Body height 2022-07-31 22:52:00 154.9 cm [facility] Body weight 2022-07-31 22:52:00 68.04 kg [facility] BMI 2022-07-31 22:52:00 28.34 kg/m2 [facility] Systolic blood pressure 2022-07-15 15:32:00 130 mm[Hg] [facility] Diastolic blood pressure 2022-07-15 15:32:00 90 mm[Hg] [facility] Heart rate 2022-07-15 15:31:00 81 /min [facility] Body temperature 2022-07-15 15:31:00 36.94 Irene [facility] Respiratory rate 2022-07-15 15:31:00 16 /min [facility] Body weight 2022-07-15 15:31:00 68.493 kg [facility] BMI 2022-07-15 15:31:00 28.53 kg/m2 [facility] Oxygen saturation in Arterial blood by Pulse oximetry 2022-07-15 15:31:00 99 /min [facility] Systolic blood pressure 2022-06-23 15:26:00 111 mm[Hg] [facility] Diastolic blood pressure 2022-06-23 15:26:00 75 mm[Hg] [facility] Heart rate 2022-06-23 15:26:00 108 /min [facility] Body temperature 2022-06-23 15:26:00 36.83 Irene [facility] Respiratory rate 2022-06-23 15:26:00 18 /min [facility] Body height 2022-06-23 15:26:00 154.9 cm [facility] Body weight 2022-06-23 15:26:00 71.385 kg [facility] BMI 2022-06-23 15:26:00 29.74 kg/m2 [facility] Oxygen saturation in Arterial blood by Pulse oximetry 2022-06-23 15:26:00 99 /min [facility] Systolic blood pressure 2022-05-05 22:05:00 126 mm[Hg] [facility] Diastolic blood pressure 2022-05-05 22:05:00 75 mm[Hg] [facility] Heart rate 2022-05-05 22:05:00 99 /min [facility] Respiratory rate 2022-05-05 22:05:00 16 /min [facility] Oxygen saturation in Arterial blood by Pulse oximetry 2022-05-05 22:05:00 99 /min [facility] Body temperature 2022-05-05 18:24:00 37.11 Irene [facility] Body height 2022-05-05 18:24:00 154.9 cm [facility] Body weight 2022-05-05 18:24:00 54.432 kg [facility] BMI 2022-05-05 18:24:00 22.67 kg/m2 [facility] Systolic blood pressure 2022-04-26 14:28:00 135 mm[Hg] [facility] Diastolic blood pressure 2022-04-26 14:28:00 95 mm[Hg] [facility] Heart rate 2022-04-26 14:28:00 93 /min [facility] Body temperature 2022-04-26 14:28:00 36.89 Irene [facility] Respiratory rate 2022-04-26 14:28:00 18 /min [facility] Body height 2022-04-26 14:28:00 154.9 cm [facility] Body weight 2022-04-26 14:28:00 54.432 kg [facility] BMI 2022-04-26 14:28:00 22.67 kg/m2 [facility] Oxygen saturation in Arterial blood by Pulse oximetry 2022-04-26 14:28:00 100 /min [facility] Systolic blood pressure 2022-04-26 00:21:00 151 mm[Hg] [facility] Diastolic blood pressure 2022-04-26 00:21:00 98 mm[Hg] [facility] Heart rate 2022-04-26 00:21:00 98 /min [facility] Body temperature 2022-04-26 00:21:00 36.72 Irene [facility] Respiratory rate 2022-04-26 00:21:00 18 /min [facility] Body height 2022-04-26 00:21:00 154.9 cm [facility] Body weight 2022-04-26 00:21:00 54.432 kg [facility] BMI 2022-04-26 00:21:00 22.67 kg/m2 [facility] Oxygen saturation in Arterial blood by Pulse oximetry 2022-04-26 00:21:00 100 /min [facility] Systolic blood pressure 2022-04-09 14:39:00 122 mm[Hg] [facility] Diastolic blood pressure 2022-04-09 14:39:00 84 mm[Hg] [facility] Heart rate 2022-04-09 14:39:00 96 /min [facility] Body height 2022-04-09 14:39:00 154.9 cm [facility] Body weight 2022-04-09 14:39:00 60.328 kg [facility] BMI 2022-04-09 14:39:00 25.13 kg/m2 [facility] Oxygen saturation in Arterial blood by Pulse oximetry 2022-04-09 14:39:00 98 /min [facility] Systolic blood pressure 2022-04-07 22:43:36 131 mm[Hg] [facility] Diastolic blood pressure 2022-04-07 22:43:36 83 mm[Hg] [facility] Heart rate 2022-04-07 22:43:36 113 /min [facility] Respiratory rate 2022-04-07 22:43:36 18 /min [facility] Oxygen saturation in Arterial blood by Pulse oximetry 2022-04-07 22:43:36 97 /min [facility] Body temperature 2022-04-07 19:41:00 37.17 Irene [facility] Body height 2022-04-07 19:41:00 154.9 cm [facility] Body weight 2022-04-07 19:41:00 60.328 kg [facility] BMI 2022-04-07 19:41:00 25.13 kg/m2 [facility] Systolic blood pressure 2022-03-24 19:00:00 125 mm[Hg] [facility] Diastolic blood pressure 2022-03-24 19:00:00 86 mm[Hg] [facility] Heart rate 2022-03-24 19:00:00 93 /min [facility] Respiratory rate 2022-03-24 19:00:00 17 /min [facility] Oxygen saturation in Arterial blood by Pulse oximetry 2022-03-24 19:00:00 97 /min [facility] Body temperature 2022-03-24 13:33:00 36.78 Irene [facility] Systolic blood pressure 2022-03-15 19:23:00 128 mm[Hg] [facility] Diastolic blood pressure 2022-03-15 19:23:00 89 mm[Hg] [facility] Heart rate 2022-03-15 19:23:00 104 /min [facility] Body weight 2022-03-15 19:23:00 60.328 kg [facility] BMI 2022-03-15 19:23:00 25.13 kg/m2 [facility] Oxygen saturation in Arterial blood by Pulse oximetry 2022-03-15 19:23:00 98 /min [facility] Systolic blood pressure 2022-03-15 15:02:00 115 mm[Hg] [facility] Diastolic blood pressure 2022-03-15 15:02:00 70 mm[Hg] [facility] Heart rate 2022-03-15 15:02:00 85 /min [facility] Respiratory rate 2022-03-15 15:02:00 20 /min [facility] Oxygen saturation in Arterial blood by Pulse oximetry 2022-03-15 15:02:00 99 /min [facility] Body temperature 2022-03-15 13:38:00 36.94 Irene [facility] Body height 2022-03-15 13:38:00 154.9 cm [facility] Body weight 2022-03-15 13:38:00 54.432 kg [facility] BMI 2022-03-15 13:38:00 22.67 kg/m2 [facility] Systolic blood pressure 2022-03-11 16:30:00 124 mm[Hg] [facility] Diastolic blood pressure 2022-03-11 16:30:00 88 mm[Hg] [facility] Heart rate 2022-03-11 16:30:00 93 /min [facility] Body temperature 2022-03-11 16:30:00 36.67 Irene [facility] Respiratory rate 2022-03-11 16:30:00 14 /min [facility] Oxygen saturation in Arterial blood by Pulse oximetry 2022-03-11 16:30:00 100 /min [facility] Body height 2022-03-11 14:19:00 154.9 cm [facility] Body weight 2022-03-11 14:19:00 58.968 kg [facility] BMI 2022-03-11 14:19:00 24.56 kg/m2 [facility] Systolic blood pressure 2022-02-27 14:14:00 140 mm[Hg] [facility] Diastolic blood pressure 2022-02-27 14:14:00 90 mm[Hg] [facility] Heart rate 2022-02-27 14:14:00 103 /min [facility] Body height 2022-02-27 14:14:00 154.9 cm [facility] Body weight 2022-02-27 14:14:00 59.194 kg [facility] BMI 2022-02-27 14:14:00 24.66 kg/m2 [facility] Oxygen saturation in Arterial blood by Pulse oximetry 2022-02-27 14:14:00 100 /min [facility] Systolic blood pressure 2022-02-27 13:19:00 131 mm[Hg] [facility] Diastolic blood pressure 2022-02-27 13:19:00 86 mm[Hg] [facility] Heart rate 2022-02-27 13:19:00 102 /min [facility] Body temperature 2022-02-27 13:19:00 36.33 Irene [facility] Body height 2022-02-27 13:19:00 154.9 cm [facility] Body weight 2022-02-27 13:19:00 58.968 kg [facility] BMI 2022-02-27 13:19:00 24.56 kg/m2 [facility] Oxygen saturation in Arterial blood by Pulse oximetry 2022-02-27 13:19:00 99 /min [facility] Systolic blood pressure 2022-02-21 08:06:00 135 mm[Hg] [facility] Diastolic blood pressure 2022-02-21 08:06:00 97 mm[Hg] [facility] Heart rate 2022-02-21 08:06:00 98 /min [facility] Respiratory rate 2022-02-21 08:06:00 16 /min [facility] Oxygen saturation in Arterial blood by Pulse oximetry 2022-02-21 08:06:00 97 /min [facility] Body temperature 2022-02-21 06:16:00 36.94 Irene [facility] Body height 2022-02-21 06:16:00 154.9 cm [facility] Body weight 2022-02-21 06:16:00 60.963 kg [facility] BMI 2022-02-21 06:16:00 25.39 kg/m2 [facility] Systolic blood pressure 2022 20:08:00 136 mm[Hg] [facility] Diastolic blood pressure 2022 20:08:00 96 mm[Hg] [facility] Heart rate 2022 20:08:00 100 /min [facility] Respiratory rate 2022 20:08:00 20 /min [facility] Oxygen saturation in Arterial blood by Pulse oximetry 2022 20:08:00 98 /min [facility] Body temperature 2022 16:56:00 37.06 Irene [facility] Body weight 2022 16:56:00 54.432 kg [facility] BMI 2022 16:56:00 22.67 kg/m2 [facility] Systolic blood pressure 2022-02-05 14:31:00 128 mm[Hg] [facility] Diastolic blood pressure 2022-02-05 14:31:00 84 mm[Hg] [facility] Heart rate 2022-02-05 14:31:00 86 /min [facility] Body temperature 2022-02-05 14:31:00 37.89 Irene [facility] Respiratory rate 2022-02-05 14:31:00 18 /min [facility] Body height 2022-02-05 14:31:00 154.9 cm [facility] Body weight 2022-02-05 14:31:00 54.432 kg [facility] BMI 2022-02-05 14:31:00 22.67 kg/m2 [facility] Oxygen saturation in Arterial blood by Pulse oximetry 2022-02-05 14:31:00 98 /min [facility] Systolic blood pressure 2022-01-18 14:50:00 144 mm[Hg] [facility] Diastolic blood pressure 2022-01-18 14:50:00 92 mm[Hg] [facility] Heart rate 2022-01-18 14:50:00 94 /min [facility] Respiratory rate 2022-01-18 14:50:00 20 /min [facility] Oxygen saturation in Arterial blood by Pulse oximetry 2022-01-18 14:50:00 99 /min [facility] Body weight 2022-01-18 10:18:00 54.432 kg [facility] BMI 2022-01-18 10:18:00 22.67 kg/m2 [facility] Body temperature 2022-01-18 10:15:00 36.72 Irene [facility] Systolic blood pressure 2022-01-15 15:48:26 125 mm[Hg] [facility] Diastolic blood pressure 2022-01-15 15:48:26 85 mm[Hg] [facility] Heart rate 2022-01-15 15:48:26 95 /min [facility] Respiratory rate 2022-01-15 15:48:26 18 /min [facility] Oxygen saturation in Arterial blood by Pulse oximetry 2022-01-15 15:48:26 98 /min [facility] Body temperature 2022-01-15 13:32:00 37.11 Irene [facility] Body height 2022-01-15 13:32:00 154.9 cm [facility] Body weight 2022-01-15 13:32:00 54.432 kg [facility] BMI 2022-01-15 13:32:00 22.67 kg/m2 [facility] Systolic blood pressure 2022-01-09 00:37:11 127 mm[Hg] [facility] Diastolic blood pressure 2022-01-09 00:37:11 90 mm[Hg] [facility] Heart rate 2022-01-09 00:37:11 94 /min [facility] Body temperature 2022-01-09 00:37:11 37.11 [facility] Respiratory rate 2022-01-09 00:37:11 16 /min [facility] Oxygen saturation in Arterial blood by Pulse oximetry 2022-01-09 00:37:11 97 /min [facility] Body height 2022-01-08 23:03:00 154.9 cm [facility] Body weight 2022-01-08 23:03:00 58.06 kg [facility] BMI 2022-01-08 23:03:00 24.19 kg/m2 [facility] Systolic blood pressure 2021-12-12 18:00:00 126 mm[Hg] [facility] Diastolic blood pressure 2021-12-12 18:00:00 87 mm[Hg] [facility] Heart rate 2021-12-12 18:00:00 86 /min [facility] Body temperature 2021-12-12 18:00:00 36.89 Irene [facility] Respiratory rate 2021-12-12 18:00:00 18 /min [facility] Body height 2021-12-12 18:00:00 154.9 cm [facility] Body weight 2021-12-12 18:00:00 57.153 kg [facility] BMI 2021-12-12 18:00:00 23.81 kg/m2 [facility] Systolic blood pressure 2023-01-14 16:32:00 138 mm[Hg] [facility] Diastolic blood pressure 2023-01-14 16:32:00 84 mm[Hg] [facility] Heart rate 2023-01-14 16:32:00 67 /min [facility] Body temperature 2023-01-14 16:32:00 36.5 Irene [facility] Respiratory rate 2023-01-14 16:32:00 16 /min [facility] Oxygen saturation in Arterial blood by Pulse oximetry 2023-01-14 16:32:00 99 /min [facility] Body height 2023-01-12 09:05:00 154.9 cm [facility] Body weight 2023-01-12 09:05:00 58.968 kg [facility] BMI 2023-01-12 09:05:00 24.56 kg/m2 [facility] Procedures Procedure Date / Time Performed Performing Clinician Source COMP. METABOLIC PANEL (06108) 2023-05-19 17:22:00 Tod Sellers [facility] CT ABDOMEN PELVIS W CONTRAST 2023-05-19 15:59:54 Tod Sellers [facility] LIPASE 2023-05-19 15:43:00 Tod Sellers Un [facility] CBC WITH DIFF 2023-05-19 15:43:00 [facility] 2023-05-19 15:32:00 Tod Sellers Un [facility] POCT TEST 2023-05-19 15:31:00 Anna Marie Sellers [facility] CONSENT/REFUSAL FOR DIAGNOSIS AND TREATMENT 2023-05-19 14:37:15 Doctor Unassigned, [place] [facility] PHOSPHORUS 2023-01-15 08:15:00 Benita Rockwell Un [facility] MAGNESIUM 2023-01-15 08:15:00 Benita Rockwell [facility] BASIC METABOLIC PANEL (NA, K, CL, CO2, GLUCOSE, BUN, CREATININE, CA) 2023-01-15 08:15:00 Benita Rockwell [facility] CBC WITH DIFF 2023-01-15 08:15:00 Benita Rockwell U [facility] PROTHROMBIN TIME / INR 2023-01-15 08:15:00 Luis Rockwell [facility] MAGNESIUM 2023-01-14 10:14:00 Benita Rockwell [facility] PHOSPHORUS 2023-01-14 10:14:00 Benita Rockwell [facility] BASIC METABOLIC PANEL (NA, K, CL, CO2, GLUCOSE, BUN, CREATININE, CA) 2023-01-14 10:14:00 Benita Rockwell [facility] CBC WITH DIFF 2023-01-14 10:14:00 Benita Rockwell [facility] PHOSPHORUS 2023-01-14 10:14:00 Benita Rockwell [facility] MAGNESIUM 2023-01-14 10:14:00 Benita Rockwell [facility] BASIC METABOLIC PANEL (NA, K, CL, CO2, GLUCOSE, BUN, CREATININE, CA) 2023-01-14 10:14:00 Benita Rockwell [facility] CBC WITH DIFF 2023-01-14 10:14:00 Benita Rockwell [facility] CBC WITH DIFF 2023-01-13 10:45:00 Rodolfo Riggins [facility] BASIC METABOLIC PANEL (NA, K, CL, CO2, GLUCOSE, BUN, CREATININE, CA) 2023-01-13 10:45:00 Vaishnavi, [facility] MAGNESIUM 2023-01-13 10:45:00 Vaishnavi, [facility] PHOSPHORUS 2023-01-13 10:45:00 Vaishnavi, [facility] HEPATIC FUNCTION PANEL ([id number]) (ALB,T.PRO,BILI T,BU/BC,ALT,AST,ALK PHOS) 2023-01-13 10:45:00 Vaishnavi, [facility] PHOSPHORUS 2023-01-13 10:45:00 Vaishnavi, [facility] MAGNESIUM 2023-01-13 10:45:00 Vaishnavi, [facility] HEPATIC FUNCTION PANEL (07257) (ALB,T.PRO,BILI T,BU/BC,ALT,AST,ALK PHOS) 2023-01-13 10:45:00 Vaishnavi, [facility] BASIC METABOLIC PANEL (NA, K, CL, CO2, GLUCOSE, BUN, CREATININE, CA) 2023-01-13 10:45:00 Vaishnavi, [facility] CBC WITH DIFF 2023-01-13 10:45:00 Rodolfo Riggins [facility] GLUCOSE BODY FLUID 2023-01-12 20:44:00 VaishnaviRodolfo dailey [facility] BODY FLUID MANUAL DIFF 2023-01-12 20:44:00 Clayton Riggins [facility] T.PROTEIN BODY FLUID 2023-01-12 20:44:00 Vaishnavi, [place] [facility] ASPIRATE OR ABSCESS CULTURE(AEROBIC/ANAEROBIC ) 2023-01-12 20:44:00 Vaishnavi, [facility] TOTAL BODY FLUID 2023-01-12 20:44:00 Vaishnavi, [facility] GLUCOSE BODY FLUID 2023-01-12 20:44:00 VaishnaviRodolfo wade [facility] T.PROTEIN BODY FLUID 2023-01-12 20:44:[address] [facility] BODY FLUID DIRECT COUNT 2023-01-12 20:44:00 Kaycee Riggins [facility] ASPIRATE OR ABSCESS CULTURE(AEROBIC/ANAEROBIC ) 2023-01-12 20:44:00 Rodolfo Riggins [facility] TOTAL BODY FLUID 2023-01-12 20:44:00 Rodolfo Riggins [facility] PROTHROMBIN TIME / INR 2023-01-12 08:13:00 VaishnaviClayton dailey [facility] PROTHROMBIN TIME / INR 2023-01-12 08:13:00 VaishnaviClayton dailey [facility] COMP. METABOLIC PANEL ([id number]) 2023-01-12 03:49:00 Ciera García [facility] COMP. METABOLIC PANEL ([id number]) 2023-01-12 03:49:00 Ciera García [facility] CT ABDOMEN PELVIS W CONTRAST 2023-01-12 03:32:06 Ciera García [facility] CT ABDOMEN PELVIS W CONTRAST 2023-01-12 03:32:06 Ciera García [facility] POCT TEST 2023-01-12 03:02:00 Jessica García [facility] POCT TEST 2023-01-12 03:02:00 Jessica García [facility] URINALYSIS 2023-01-12 02:56:00 Kenneth García [facility] LIPASE 2023-01-12 02:56:00 Kenneth García Marie [facility] TOTAL BETA HCG ASSAY 2023-01-12 02:56:00 Ciera García Joana [facility] CBC WITH DIFF 2023-01-12 02:56:00 Kenneth García Marie [facility] EXTRA TUBE ORANGE 2023-01-12 02:56:00 Aroldo Siddiqui [facility] EXTRA TUBE LAV 2023-01-12 02:56:00 Aroldo Siddiqui [facility] LIPASE 2023-01-12 02:56:00 Kenneth García Marie [facility] TOTAL BETA HCG ASSAY 2023-01-12 02:56:00 Ciera García [facility] CBC WITH DIFF 2023-01-12 02:56:00 Kenneth García [facility] URINALYSIS 2023-01-12 02:56:00 Kenneth García [facility] EXTRA TUBE LAV 2023-01-12 02:56:00 Aroldo Siddiqui [facility] EXTRA TUBE ORANGE 2023-01-12 02:56:00 Aroldo Siddiqui [facility] CONSENT/REFUSAL FOR DIAGNOSIS AND TREATMENT 2023-01-12 01:46:10 Doctor Unassigned, [place] [facility] CONSENT/REFUSAL FOR DIAGNOSIS AND TREATMENT 2023-01-12 01:46:10 Doctor Unassigned, [place] [facility] ASSIGNMENT OF BENEFITS 2022-11-21 19:49:02 Docto r Unassigned, [place] [facility] ASSIGNMENT OF BENEFITS 2022-11-21 19:49:02 Docto r Unassigned, [place] [facility] CONSENT/REFUSAL FOR DIAGNOSIS AND TREATMENT 2022-11-21 18:03:25 Doctor Unassigned, [place] [facility] CONSENT/REFUSAL FOR DIAGNOSIS AND TREATMENT 2022-11-21 18:03:25 Doctor Unassigned, [place] [facility] EMERGENCY SERVICES AGREEMENTS AND AUTHORIZATIONS 2022-11-21 05:01:00 Doctor Unassigned, [place] [facility] CONSENT/REFUSAL FOR DIAGNOSIS AND TREATMENT 2022-09-05 13:42:02 Doctor Unassigned, [place] [facility] LIPASE 2022-07-31 23:13:00 [facility] 2022-07-31 23:13:00 Domenico Newell [facility] COMP. METABOLIC PANEL ([id number]) 2022-07-31 23:13:00 [facility] CBC WITH DIFF 2022-07-31 23:13:00 Manju Newell [facility] CONSENT/REFUSAL FOR DIAGNOSIS AND TREATMENT 2022-07-31 22:49:17 Doctor Unassigned, [place] [facility] XR ANKLE 3+ VW RIGHT 2022-07-15 16:00:00 Hi Kaur [facility] XR FOOT 3+ VW RIGHT 2022-07-15 16:00:00 Jenifer Kaur [facility] XR FOOT 3+ VW RIGHT 2022-07-15 16:00:00 Jenifer Kaur [facility] PATIENT FINANCIAL POLICY 2022-07-15 15:25:53 Doctor Unassigned, [place] [facility] POCT MOLECULAR STREP 2022-06-23 16:06:00 Unknown, Atte catherine [facility] ASSIGNMENT OF BENEFITS 2022-06-23 15:18:28 Docto r Unassigned, [place] [facility] COMP. METABOLIC PANEL ([id number]) 2022-05-05 19:14:00 Karon Norton [facility] CBC WITH DIFF 2022-05-05 19:14:00 Karon Norton [facility] POCT TEST 2022-05-05 19:00:00 Lou Norton [facility] URINALYSIS 2022-05-05 18:58[facility]AST 2022-04-26 15:11:00 Zion Bridges [facility] COMP. METABOLIC PANEL ([id number]) 2022-04-26 14:49:00 Zion Bridges [facility] CBC WITH DIFF 2022-04-26 14:49:00 Zion Bridges [facility] URINALYSIS 2022-04-26 14:49:00 Zion Bridges [facility] POCT TEST 2022-04-26 14:45:00 Jonn Bridges [facility] CONSENT/REFUSAL FOR DIAGNOSIS AND TREATMENT 2022-04-26 14:22:29 Doctor Unassigned, [place] [facility] POCT TEST 2022-04-26 01:22:00 Jonn Bridges [facility] ASSIGNMENT OF BENEFITS 2022-04-26 00:54:02 Docto r Unassigned, [place] [facility] URINALYSIS 2022-04-26 00:45:00 Zion Bridges [facility] CONSENT/REFUSAL FOR DIAGNOSIS AND TREATMENT 2022-04-26 00:16:47 Doctor Unassigned, [place] [facility] BASIC METABOLIC PANEL (NA, K, CL, CO2, GLUCOSE, BUN, CREATININE, CA) 2022-04-07 22:35:00 Olamide Garvin [facility] CBC WITH DIFF 2022-04-07 22:35:00 Olamide Garvin [facility] URINALYSIS 2022-04-07 21:36:00 Olamide Garvin [facility] URINE DRUG (IMMUNOASSAY) - COMPREHENSIVE DRUG SCREEN W/O REFLEX 2022-04-07 21:36:00 Olamide Garvin [facility] CONSENT/REFUSAL FOR DIAGNOSIS AND TREATMENT 2022-04-07 19:29:15 Doctor Unassigned, [place] [facility] POCT TEST 2022-03-24 14:07:00 Kellie Duncan [facility] CONSENT/REFUSAL FOR DIAGNOSIS AND TREATMENT 2022-03-24 13:27:20 Doctor Unassigned, [place] [facility] CT ABDOMEN PELVIS WO CONTRAST 2022-03-15 14:09:04 Anna Gould [facility] URINALYSIS 2022-03-15 13:53:00 Anna Gould [facility] POCT TEST 2022-03-15 13:52:00 Kimberly Gould [facility] CONSENT/REFUSAL FOR DIAGNOSIS AND TREATMENT 2022-03-15 13:37:02 Doctor Unassigned, [place] [facility] POCT TEST 2022-03-11 14:59:00 Redd Viveros [facility] FLU VACC ([id number]), 6 MO-64 YRS, .5ML, IM, QUAD (FLUCELVAX) 2022-02-27 13:34:55 Vijay Martinez [facility] NOTICE OF PRIVACY PRACTICES 2022-02-21 06:06:30 Doctor Unassigned, [place] [facility] CONSENT/REFUSAL FOR DIAGNOSIS AND TREATMENT 2022-02-21 06:03:41 Doctor Unassigned, [place] [facility] XR ANKLE <3 VW RIGHT 2022 17:56:42 Buster Hamilton [facility] CT ABDOMEN PELVIS W CONTRAST 2022 17:44:17 Maggie Hamilton [facility] CT TRAUMA CERVICAL SPINE WO CONTRAST 2022 17:43:49 Maggie Hamilton [facility] POCT TEST 2022 17:27:00 Zoie Hamilton ra [facility] COMP. METABOLIC PANEL ([id number]) 2022 17:17:00 Maggie Hamilton [facility] CBC WITH DIFF 2022 17:17:00 Maggie Hamilton [facility] CONSENT/REFUSAL FOR DIAGNOSIS AND TREATMENT 2022 16:53:13 Doctor Unassigned, [place] [facility] US GALL BLADDER 2022-01-18 12:31:09 Bernardo Levy [facility] US PELVIS COMPLETE WITH TRANSVAGINAL 2022-01-18 12:21:13 Melvin Zhao [facility] CT ABDOMEN PELVIS W CONTRAST 2022-01-18 11:20:50 Melvin Zhao [facility] POCT TEST 2022-01-18 10:57:00 Jayy Kennedy [facility] COVID-19 (ID NOW RAPID TESTING) 2022-01-18 10:57:00 Jayy Kennedy [facility] URINALYSIS 2022-01-18 10:47:00 Jayy Kennedy [facility] LIPASE 2022-01-18 10:29:00 Jayy Kennedy [facility] TEST, SERUM 2022-01-18 10:29:00 Jayy Kennedy [facility] HEPATIC FUNCTION PANEL ([id number]) (ALB,T.PRO,BILI T,BU/BC,ALT,AST,ALK PHOS) 2022-01-18 10:29:00 Jayy Kennedy [facility] BASIC METABOLIC PANEL (NA, K, CL, CO2, GLUCOSE, BUN, CREATININE, CA) 2022-01-18 10:29:00 Jayy Kennedy [facility] CBC WITH DIFF 2022-01-18 10:29:00 Jayy Kennedy [facility] CONSENT/REFUSAL FOR DIAGNOSIS AND TREATMENT 2022-01-18 10:13:31 Doctor Unassigned, [place] [facility] CT HEAD WO CONTRAST 2022-01-15 15:22:29 Maura Samayoa [facility] TEST, SERUM 2022-01-15 14:36:00 Hudson Samayoa [facility] BASIC METABOLIC PANEL (NA, K, CL, CO2, GLUCOSE, BUN, CREATININE, CA) 2022-01-15 14:36:00 Maura Samayoa [facility] CBC WITH DIFF 2022-01-15 14:36:00 Maura Samayoa [facility] CONSENT/REFUSAL FOR DIAGNOSIS AND TREATMENT 2022-01-15 13:28:12 Doctor Unassigned, [place] [facility] XR CERVICAL SPINE 4 VW 2022-01-09 00:29:16 Kassandra Ochoa [facility] XR LUMBAR SPINE 4 VW 2022-01-09 00:29:16 Gabriela, And res [facility] XR SPINE THORACIC 3 VW 2022-01-09 00:29:16 Kassadnra Ochoa [facility] URINALYSIS 2022-01-08 23:50:00 Humberto Ochoa [facility] CONSENT/REFUSAL FOR DIAGNOSIS AND TREATMENT 2022-01-08 22:51:08 Doctor Unassigned, [place] [facility] GALV ONLY - VAGINAL PATHOGENS BY NUCLEIC ACID TESTING 2021-12-12 18:37:00 Prasanna Vargas [facility] URINE CULTURE 2021-12-12 18:32:00 Prasanna Vargas [facility] POCT TEST 2021-12-12 18:31:00 Prasanna Vargas [facility] POCT URINALYSIS W/O SPECIFIC GRAVITY 2021-12-12 18:31:00 Prasanna Vargas [facility] Encounters Start Date/Time End Date/Time Encounter Type Admission Type Attending [facility] Care Facility Care Department Encounter ID Source 2021-03-14 03:14:31 Emergency [facility] [id number] [facility] [place] 2021-03-13 20:05:20 [facility] [id number] [facility] 2021-03-13 12:48:28 [place] [id number] [facility] 2021-03-13 02:43:51 [facility] [id number] [facility] 2021-03-13 00:27:09 Emergency [facility] [id number] [facility] [place] 2021-03-12 22:10:36 Emergency [facility] [id number] [facility] 2021-03-12 20:04:05 Emergency [facility] [id number] [facility] 2021-03-12 15:25:05 Emergency [facility] [id number] [facility] 2021-03-12 11:43:36 [facility] [id number] [facility] [place] 2021-03-12 07:41:37 Emergency [facility] [id number] [facility] 2021-03-12 05:43:47 Emergency [facility] [id number] [facility] 2021-03-12 03:43:41 Emergency [facility] [id number] [facility] 2021-03-12 01:31:27 Emergency [facility] [id number] [facility] [place] 2021-03-12 00:56:44 Emergency X [facility] [id number] [facility] 2021-03-12 00:56:31 [facility] [id number] [facility] 2021-03-11 17:47:02 [place] [id number] [facility] [place] 2021-03-11 16:27:15 Emergency [facility] [id number] [facility] 2021-03-11 12:00:58 Emergency [facility] [id number] [facility] [place] 2021-03-11 10:33:59 Emergency [facility] [id number] [facility] 2021-03-11 01:36:52 Emergency [facility] [id number] [facility] 2021-03-10 23:35:34 Emergency [facility] [id number] [facility] 2021-03-10 19:06:16 Emergency [facility] [id number] [facility] 2021-03-10 12:39:47 Emergency [facility] [id number] [facility] 2021-03-10 06:54:04 Emergency [facility] [id number] [facility] 2021-03-09 13:25:44 Outpatient P [facility] [id number] [facility] 2021-03-09 13:08:01 Outpatient P [facility] [id number] [facility] 2021-03-09 12:37:25 Outpatient P [facility] [id number] [facility] 2021-03-09 11:51:20 Outpatient P [facility] [id number] [facility] 2023-12-23 15:39:53 2023-12-23 15:39:[address] [facility] [id number] Williszaira Gil 2023-12-08 14:51:46 2023-12-08 14:51:46 Outpatient [facility] [id number] Willis F Jeffery 2023-09-12 00:00:00 2023-09-12 00:00:00 Outpatient ROLDAN QUIROZ [facility] [id number] [facility] 2023-08-26 00:00:00 2023-08-26 00:00:00 Transition of Care Marlys Odell 1.2.840.114 350.1.13.10 4.2.7.2.686 [id number] [facility] 2023-08-23 08:31:00 2023-08-24 13:25:[address] [facility] [id number] [facility] 2023-08-04 14:56:23 2023-08-04 14:56:23 Outpatient [facility] [id number] Willis Gil 2023-06-27 14:47:45 2023-06-27 14:47:45 Outpatient [facility] [id number] Willis Gil 2023-05-19 09:04:00 2023-05-19 12:20:00 Emergency X ADERIANNA MARIE LOPEZIL [facility] ERT [id number] [facility] 2023-05-19 09:04:00 2023-05-19 12:20:00 Emergency Aderiluis angelgbignacio, [facility] 1..840.114 350.1.13.10 4.2.7.2.686 [id number] [facility] 2023-04-05 00:00:00 2023-04-05 00:00:00 Patient Secure Msg Prasanna Vargas Cam [facility] 1..840.114 350.1.13.10 4.2.7.2.686 [id number] [facility] 2023-02-14 12:59:23 2023-02-14 12:59:23 Outpatient [facility] [id number] Willis Gil 2023-02-06 18:19:02 2023-02-06 18:19:02 Outpatient [facility] [id number] Willis Gil 2023-01-30 00:00:00 2023-01-30 00:00:00 Outpatient OLENAON_R [facility] [id number] [facility] 2023-01-16 00:00:00 2023-01-16 00:00:00 Transition of Care Marlys Odell 1..840.114 350.1.13.10 4.2.7.2.686 [id number] [facility] 2023-01-11 21:06:00 2023-01-15 16:00:00 Inpatient X REINALDO STEELESHUA [facility] DAVID [id number] [facility] 2023-01-11 21:06:00 2023-01-15 16:00:00 Hospital Encounter Aroldo Siddiqui, Mirella Steele, [facility] 1.2.840.114 350.1.13.10 4.2.7.2.686 [id number] [facility] 2023-01-12 00:00:00 2023-01-12 00:00:00 Travel 1.2.840.1 [id number] 3.104.2.7 .3.926936 .8 1.2.840.114 350.1.13.10 4.2.7.3.698 [id number] [facility] 2023-01-11 00:00:00 2023-01-11 00:00:00 Travel 1.2.840.1 [id number] 3.104.2.7 .3.066796 .8 1.2.840.114 350.1.13.10 4.2.7.3.698 [id number] [facility] 2022-12-28 00:00:00 2022-12-28 00:00:00 Outpatient ERICKSON_R [facility] [id number] [facility] 2022-12-14 18:37:13 2022-12-14 18:37:13 Outpatient [facility]FA STEFANY [id number] Willis Rivera Jeffery 2022-12-13 00:00:00 2022-12-13 00:00:00 Outpatient ERICKSON_R [facility] [id number] [facility] 2022-12-12 09:30:00 2022-12-12 09:30:00 Outpatient PRASANNA LOOMIS [facility] [id number] [facility] 2022-11-21 13:08:00 2022-11-21 16:45:00 Emergency X MANJU NEWELL [facility] ERT [id number] [facility] 2022-11-21 13:08:00 2022-11-21 16:45:00 Emergency Zion Bridges Christopher 1.2.840.1 [id number] 3.104.2.7 .3.411291 .8 [id number] [facility] 2022-11-21 00:00:00 2022-11-21 00:00:00 Travel 1.2.840.1 [id number] 3.104.2.7 .3.769507 .8 1.2.840.114 350.1.13.10 4.2.7.3.698 [id number] [facility] 2022-11-18 10:08:00 2022-11-18 10:08:00 Outpatient [facility] [id number] Williszaira Gil 2022-11-15 09:40:00 2022-11-15 09:40:00 Outpatient LIAN LABOY CHRISTINE [facility] [id number] [facility] 2022-11-15 00:00:00 2022-11-15 00:00:00 Orders Only Palak Marrufo 1.2.840.1 [id number] 3.104.2.7 .3.744249 .8 [id number] [facility] 2022-11-09 15:26:18 2022-11-09 15:26:18 Outpatient [facility] [id number] Willis Gil 2022-11-06 13:00:00 2022-11-06 13:00:00 Outpatient VIJAY ARAUZ [facility] [id number] [facility] 2022-10-29 00:00:00 2022-10-29 00:00:00 Patient Secure MsLian Lee 1.2.840.1 80855.1.1 3.104.2.7 .3.997062 .8 [id number] [facility] 2022-10-29 00:00:00 2022-10-29 00:00:00 Patient Secure Prasanna Kang 1.2.840.1 16765.1.1 3.104.2.7 .3.335689 .8 [id number] [facility] 2022-10-03 00:00:00 2022-10-03 00:00:00 Letter (Out) Roldan Lim [facility] TO[facility] 1.2.840.114 350.1.13.10 4.2.7.2.686 [id number] [facility] 2022-10-02 10:00:00 2022-10-02 10:00:00 Outpatient CELINA SALMON [facility] [id number] [facility] 2022-10-01 09:40:00 2022-10-01 09:40:00 Outpatient REJI COOPER [facility] [id number] [facility] 2022-09-25 00:00:00 2022-09-25 00:00:00 Telephone Rad Serra [facility] 1.2.840.114 350.1.13.10 4.2.7.2.686 [id number] [facility] 2022-09-21 09:30:00 2022-09-21 09:30:00 Outpatient KASSANDRA MCKINLEY [facility] [id number] [facility] 2022-09-21 00:00:00 2022-09-21 00:00:00 [facility] (Out[facility] 1.2.840.114 350.1.13.10 4.2.7.2.686 [id number] [facility] 2022-09-21 00:00:00 2022-09-21 00:00:00 Telephone Pugh, [facility] TOÑO[facility] 1.84.114 350.1.13.10 4.2.7.2.686 [id number] [facility] 2022-09-21 00:00:00 2022-09-21 00:00:00 Telephone [facility] 1.840.114 350.1.13.10 4.2.7.2.686 [id number] [facility] 2022-09-14 09:30:00 2022-09-14 09:30:00 [facility] [id number] [facility] 2022-09-12 00:00:00 2022-09-12 00:00:00 Telephone Cristian [facility] 1..114 350.1.13.10 4.2.7.2.686 [id number] [facility] 2022-09-07 11:30:00 2022-09-07 11:30:00 [facility] [id number] [facility] 2022-09-05 08:44:00 2022-09-05 13:15:00 Emergency X GUTIERREZ, TAMMIEVANESA [facility] ERT [id number] [facility] 2022-09-05 08:44:00 2022-09-05 13:15:00 Emergency GutierrezTammieise [facility] 1..114 350.1.13.10 4.2.7.2.686 [id number] [facility] 2022-09-04 00:00:00 2022-09-04 00:00:00 Telephone Cristian [facility] TOÑO?[facility] 1.84.114 350.1.13.10 4.2.7.2.686 [id number] [facility] 2022-09-04 00:00:00 2022-09-04 00:00:00 Patient Secure Msg Rad Serra [facility] PROFESS[facility] NAL BUILDING 1..840.114 350.1.13.10 4.2.7.2.686 [id number] [facility] 2022-08-29 09:00:00 2022-08-29 09:00:00 Outpatient R CELINA FINNEY [facility] [id number] [facility] 2022-08-14 00:00:00 2022-08-14 00:00:00 Patient Secure Msg Doctor Unassigned, [place] [facility] 1.840.114 350.1.13.10 4.2.7.2.686 [id number] [facility] 2022-07-31 17:56:00 2022-07-31 20:30:00 Emergency X RIDRAFA, [facility] ERT [id number] [facility] 2022-07-31 17:56:00 2022-07-31 20:30:00 Emergency [place], [facility] ..840.114 350.1.13.10 4.2.7.2.686 [id number] [facility] 2022-07-15 09:46:45 2022-07-15 23:59:00 Outpatient R CARI KAUR [facility] [id number] [facility] 2022-07-15 09:46:45 2022-07-15 23:59:00 Hospital Encounter Cari Kaur [facility] 1..840.114 350.1.13.10 4.2.7.2.686 [id number] [facility] 2022-07-15 09:46:45 2022-07-15 23:59:00 Hospital Encounter Cari Kaur [facility] 1..840.114 350.1.13.10 4.2.7.2.686 [id number] [facility] 2022-07-15 09:20:00 2022-07-15 10:29:17 Urgent Care Cari Kaur Unknown, Attending [facility] 1.840.114 350.1.13.10 4.2.7.2.686 [id number] [facility] 2022-07-15 00:00:00 2022-07-15 00:00:00 Orders Only Doctor Unassigned, [place] [facility] 1.840.114 350.1.13.10 4.2.7.2.686 [id number] [facility] 2022-06-23 09:20:00 2022-06-23 10:27:39 Outpatient R PAUL SAMAYOA [facility] [id number] [facility] 2022-06-23 09:20:00 2022-06-23 10:27:39 Urgent Care Paul Samayoa Unknown, Attending [facility] 1..840.114 350.1.13.10 [id number] [id number] [facility] 2022-06-23 00:00:00 2022-06-23 00:00:00 Orders Only Doctor Unassigned, [place] [facility] [id number] [id number] [id number] [id number] [facility] 2022-06-15 09:40:00 2022-06-15 09:40:00 Outpatient R LIAN GREENE [facility] [id number] [facility] 2022-05-29 08:00:00 2022-05-29 08:00:00 Outpatient R KASSANDRA PUGH [facility] [id number] [facility] 2022-05-15 09:20:00 2022-05-15 09:20:00 Outpatient R BENNETT MILLER [facility] [id number] [facility] 2022-05-11 09:30:00 2022-05-11 09:30:00 Outpatient R PUGHKASSANDRA [facility] [id number] [facility] 2022-05-05 12:26:00 2022-05-05 16:11:00 Emergency X NORTON KARON [facility] ERT [id number] [facility] 2022-05-05 12:26:00 2022-05-05 16:11:00 Emergency Errol Karon [facility] [id number] [id number] [id number] [place] [facility]01 00:00:00 2022-05-01 00:00:00 Outpatient R VARGASPRASANNA ORLANDO VARGASEN [facility] [id number] [facility] 2022-04-26 08:30:00 2022-04-26 09:59:00 Emergency X ZOIN BRIDGES [facility] ERT [id number] [facility] 2022-04-26 08:30:00 2022-04-26 09:59:00 Emergency Zion Bridges [facility] 1.2.840.114 350.1.13.10 4.2.7.2.686 [id number] [facility] 2022-04-25 18:23:00 2022-04-25 21:55:00 Emergency X KENNEDY WHITLEY [facility] ERT [id number] [facility] 2022-04-25 18:23:00 2022-04-25 21:55:00 Emergency Kennedy Whitley [facility] 1.2.840.114 350.1.13.10 4.2.7.2.686 [id number] [facility] 2022-04-19 10:00:00 2022-04-19 10:00:00 Outpatient LIAN LABOY [facility] [id number] [facility] 2022-04-12 00:00:00 2022-04-12 00:00:00 [facility] 1.2.840.114 350.1.13.10 4.2.7.2.686 [id number] [facility] 2022-04-11 00:00:00 2022-04-11 00:00:00 Telephone Darrion Wyatt [facility] TO[facility]O?[facility] 1.2.840.114 350.1.13.10 4.2.7.2.686 [id number] [facility] 2022-04-10 00:00:00 2022-04-10 00:00:00 Telephone Anastasiia Pughssica [facility] TOÑO?[facility] 1.2.840.114 350.1.13.10 4.2.7.2.686 [id number] [id number] [facility] 2022-04-09 09:30:00 2022-04-09 09:30:00 [facility] 1.2.840.114 350.1.13.10 4.2.7.2.686 [id number] [facility] 2022-04-09 09:30:00 2022-04-09 09:21:44 Outpatient NAASTASIIA MCKINLEYSSICA [facility] [id number] [facility] 2022-04-07 13:41:00 2022-04-07 17:49:00 Emergency X ALEXISRU OLAMIDE [facility] ERT [id number] [facility] 2022-04-07 13:41:00 2022-04-07 17:49:00 Emergency Olamide Garvin [facility] 1.2.840.114 350.1.13.10 4.2.7.2.686 [id number] [facility] 2022-04-07 00:00:00 2022-04-07 00:00:00 Patient Secure Msg Doctor Unassigned, [place] [facility] 1..840.114 350.1.13.10 4.2.7.2.686 [id number] [facility] 2022-04-04 00:00:00 2022-04-04 00:00:00 Telephone Kassandra Pugh [facility] 1..840.114 350.1.13.10 4.2.7.2.686 [id number] [facility] 2022-04-02 10:30:00 2022-04-02 10:30:00 Outpatient R KASSANDRA PUGH [facility] [id number] [facility] 2022-03-28 00:00:00 2022-03-28 00:00:00 Patient Secure Msg Doctor Unassigned, [place] [facility] 1..840.114 350.1.13.10 4.2.7.2.686 [id number] [facility] 2022-03-24 07:35:00 2022-03-24 13:11:00 Emergency X KELLIE DUNCAN [facility] ERT [id number] [facility] 2022-03-24 07:35:00 2022-03-24 13:11:00 Emergency Kellie Duncan [facility] 1.2.840.114 350.1.13.10 4.2.7.2.686 [id number] [facility] 2022-03-23 10:30:00 2022-03-23 10:30:00 Outpatient KASSANDRA MCKINLEY [facility] [id number] [facility] 2022-03-23 00:00:00 2022-03-23 00:00:00 Telephone Darrion Wyatt [facility] TOÑO?[facility] 1.2.840.114 350.1.13.10 4.2.7.2.686 [id number] [facility] 2022-03-22 00:00:00 2022-03-22 00:00:00 Telephone Darrion Wyatt [facility] TOÑO?[facility] 1.2.840.114 350.1.13.10 4.2.7.2.686 [id number] 092 [id number] [facility] 2022-03-22 00:00:00 2022-03-22 00:00:00 Refill Darrion Wyatt [facility] TOÑO?[facility] 1.2.840.114 350.1.13.10 4.2.7.2.686 [id number] [id number] [facility] 2022-03-21 00:00:00 2022-03-21 00:00:00 Telephone Darrion Wyatt [facility] 1.2.840.114 350.1.13.10 4.2.7.2.686 [id number] [facility] 2022-03-15 14:00:00 2022-03-15 14:36:19 Outpatient R RJEI DÍAZ [facility] [id number] [facility] 2022-03-15 14:00:00 2022-03-15 14:36:19 Office Visit Reji Díaz [facility] PROF[facility] NAL [facility]ILD[facility] 1..840.114 350.1.13.10 4.2.7.2.686 [id number] [facility] 2022-03-15 08:40:00 2022-03-15 10:47:00 Emergency X ANNA GOULD [facility] ERT [id number] [facility] 2022-03-15 08:40:00 2022-03-15 10:47:00 Emergency Anna Gould [facility] 1..840.114 350.1.13.10 4.2.7.2.686 [id number] [facility] 2022-03-14 10:30:00 2022-03-14 10:30:00 Outpatient PRASANNA LOOMIS [facility] [id number] [facility] 2022-03-11 09:22:00 2022-03-11 12:15:00 Emergency X ANGELICA VIVEROS [facility] ERT [id number] [facility] 2022-03-11 09:22:00 2022-03-11 12:15:00 Emergency Angelica Viveros [facility] 1.2.840.114 350.1.13.10 4.2.7.2.686 [id number] [facility] 2022-03-06 08:30:00 2022-03-06 08:30:00 Outpatient KASSANDRA MCKINLEY [facility] [id number] [facility] 2022-03-02 00:00:00 2022-03-02 00:00:00 Telephone [facility]ion [facility] 1.2.840.114 350.1.13.10 4.2.7.2.686 [id number] [facility] 2022-02-28 00:00:00 2022-02-28 00:00:00 Patient Secure Msg Doctor Unassigned, [place] [facility] TO[facility]O?[facility] 1..840.114 350.1.13.10 4.2.7.2.686 [id number] [facility] 2022-02-27 09:30:00 2022-02-27 09:49:42 Outpatient R KASSANDRA PUGH [facility] [id number] [facility] 2022-02-27 09:30:00 2022-02-27 09:49:42 [facility] 1.840.114 350.1.13.10 4.2.7.2.686 [id number] 092 [id number] [facility] 2022-02-27 08:00:00 2022-02-27 09:12:17 Office Visit [facility]ijay [facility] 1.840.114 350.1.13.10 4.2.7.2.686 [id number] [facility] 2022-02-26 11:30:00 2022-02-26 11:30:00 Outpatient R KASSANDRA PUGH [facility] [id number] [facility] 2022-02-21 01:20:00 2022-02-21 03:44:00 Emergency X MAGGIE HAMILTON [facility] ERT [id number] [facility] 2022-02-21 01:20:00 2022-02-21 03:44:00 Emergency Maggie Hamilton [facility] 1.840.114 350.1.13.10 4.2.7.2.686 [id number] 084 [id number] [facility] 2022-02-19 00:00:00 2022-02-19 00:00:00 Patient Secure Msg ZamudioKendal [facility] 1.840.114 350.1.13.10 4.2.7.2.686 [id number] [facility] 2022-02-19 00:00:00 2022-02-19 00:00:00 Patient Secure Msg Kendal Zamudio [facility] 1.2840.114 350.1.13.10 4.2.7.2.686 [id number] [id number] [facility] 2022-02-19 00:00:00 2022-02-19 00:00:00 Patient Secure Msg Ade Bradford [facility] 1.2840.114 350.1.13.10 4.2.7.2.686 [id number] [facility] 2022-02-19 00:00:00 2022-02-19 00:00:00 Patient Secure Msg SalazarRoss Farzana [facility] TELEPHONE SWITCHBOARD OPERATOR [facility] 1.2840.114 350.1.13.10 4.2.7.2.686 [id number] [facility] 2022 11:58:00 2022 15:13:00 Emergency MAGGIE MONTANEZ [facility] ERT [id number] [facility] 2022 11:58:00 2022 15:13:00 Emergency Maggie Hamilton [facility] 1.84.114 350.1.13.10 4.2.7.2.686 [id number] [facility] 2022-02-09 09:00:00 2022-02-09 09:00:00 Outpatient CRICKET FRYE [facility] [id number] [facility] 2022-02-06 10:00:00 2022-02-06 10:00:00 Outpatient VIJAY ARAUZ [facility] [id number] [facility] 2022-02-05 09:45:00 2022-02-05 10:05:00 Nurse Visit Nurse, Filippo [facility] Ileana Medrano [facility] 1.840.114 350.1.13.10 4.2.7.2.686 [id number] [facility] 2022-02-05 09:20:00 2022-02-05 09:20:00 Outpatient FLACO KEE [facility] [id number] [facility] 2022-01-26 00:00:00 2022-01-26 00:00:00 Case Management Prasanna Vargas [facility] PROFESS[facility] NAL BUILD[facility] 1.840.114 350.1.13.10 4.2.7.2.686 [id number] [facility] 2022-01-22 11:00:00 2022-01-22 11:00:00 Outpatient VIJAY ARAUZ [facility] [id number] [facility] 2022-01-19 00:00:00 2022-01-19 00:00:00 Patient Secure Msg Doctor Unassigned, [place] [facility] 1.840.114 350.1.13.10 4.2.7.2.686 [id number] [facility] 2022-01-18 05:17:00 2022-01-18 10:25:00 Emergency X BERNARDO LEVY [facility] ERT [id number] [facility] 2022-01-18 05:17:00 2022-01-18 10:25:00 Emergency Jayy Kennedy [facility] 1.0.114 350.1.13.10 4.2.7.2.686 [id number] [facility] 2022-01-15 08:34:00 2022-01-15 10:49:00 Emergency X MAURA SAMAYOA [facility] ERT [id number] [facility] 2022-01-15 08:34:00 2022-01-15 10:49:00 Emergency Ana Larry Maura Romero [facility] 1..840.114 350.1.13.10 4.2.7.2.686 [id number] [facility] 2022-01-08 18:04:00 2022-01-08 20:09:00 Emergency X HUMBERTO OCHOA [facility] ERT [id number] [facility] 2022-01-08 18:04:00 2022-01-08 20:09:00 Emergency Humberto Ochoa [facility] 1..840.114 350.1.13.10 4.2.7.2.686 [id number] [facility] 2021-12-12 13:30:00 2021-12-12 13:40:21 Outpatient Farzana CARNES TETO [facility] [id number] [facility] 2021-12-12 13:30:00 2021-12-12 13:40:21 Office Visit Prasanna [facility]argas [facility] 1..840.114 350.1.13.10 4.2.7.2.686 [id number] [facility] 2021-12-12 13:30:00 2021-12-12 13:40:21 Outpatient Farzana CARNES [facility] [id number] [facility] 2021-12-12 13:30:00 2021-12-12 13:40:21 Outpatient Farzana CARNES [facility] [id number] [facility] 2021-12-11 16:15:00 2021-12-11 16:15:00 Outpatient ADE KING [facility] [id number] [facility] 2021-12-05 14:15:00 2021-12-05 14:15:00 Outpatient R LYSSA ROMULO [facility] [id number] [facility] 2021-11-28 08:49:00 2021-11-28 11:02:00 Emergency X KARON NORTON [facility] ERT [id number] [facility] 2021-11-28 08:49:00 2021-11-28 11:02:00 Emergency Karon Norton [facility] 1.0.114 350.1.13.10 4.2.7.2.686 [id number] [facility] 2021-11-28 00:00:00 2021-11-28 00:00:00 Patient Secure Msg Cricket Taylor [facility] TELEPHONE SWITCHBOARD OPERATOR [facility] 1..114 350.1.13.10 4.2.7.2.686 [id number] [facility] 2021-11-24 18:14:00 2021-11-24 21:04:00 Emergency X Kaycee MÉNDEZ [facility] ERT [id number] [facility] 2021-11-24 18:14:00 2021-11-24 21:04:00 Emergency Kaycee Méndez [facility] 1..114 350.1.13.10 4.2.7.2.686 [id number] [facility] 2021-11-24 00:00:00 2021-11-24 00:00:00 Telephone Cricket Taylor [facility] TELEPHONE SWITCHBOARD OPERATOR [facility] 1..114 350.1.13.10 4.2.7.2.686 [id number] [facility] 2021-11-20 00:00:00 2021-11-20 00:00:00 Patient Secure Msg Kendal Zamudio [facility] 1.2.840.114 350.1.13.10 4.2.7.2.686 [id number] 044 [id number] [facility] 2021-11-19 00:00:00 2021-11-19 00:00:00 Letter (Out) Leslie Santacruz [facility] 1.2.840.114 350.1.13.10 4.2.7.2.686 [id number] [facility] 2021-11-18 10:41:40 2021-11-18 23:59:00 Outpatient R OLIVER [facility] [id number] [facility] 2021-11-18 10:41:40 2021-11-18 23:59:00 Hospital Encounter Oliver [facility] 1.2.840.114 350.1.13.10 4.2.7.2.686 [id number] [facility] 2021-11-18 10:20:00 2021-11-18 10:53:20 Urgent Care Oliver, [facility] 1.2.840.114 350.1.13.10 4.2.7.2.686 [id number] [facility] 2021-11-09 10:30:00 2021-11-09 10:30:00 Outpatient R CELINA MIXON [facility] [id number] [facility] 2021-10-25 13:20:00 2021-10-25 13:20:00 [facility] 1.2.840.114 350.1.13.10 4.2.7.2.686 [id number] [facility] 2021-10-25 13:20:00 2021-10-25 12:47:59 Outpatient R ILEANA MEDRANO [facility] [id number] [facility] 2021-10-25 00:00:00 2021-10-25 00:00:00 Patient Secure Msg Vijay Martinez [facility] TOÑO?[facility] 1.2.840.114 350.1.13.10 4.2.7.2.686 [id number] [facility] 2021-10-25 00:00:00 2021-10-25 00:00:00 Telephone [facility] 1.2.840.114 350.1.13.10 4.2.7.2.686 [id number] [facility] 2021-10-25 00:00:00 2021-10-25 00:00:00 Telephone Provider, Filippo [facility] TOÑO?[facility] 1.2.840.114 350.1.13.10 4.2.7.2.686 [id number] [facility] 2021-10-25 00:00:00 2021-10-25 00:00:00 Telephone Nurse, Filippo [facility] TOÑO?[facility] 1.2.840.114 350.1.13.10 4.2.7.2.686 [id number] [facility] 2021-10-24 10:15:00 2021-10-24 10:15:00 Outpatient ROMULO BROWNING [facility] [id number] [facility] 2021-10-24 10:15:00 2021-10-24 10:15:00 Outpatient ROMULO BROWNING [facility] [id number] [facility] 2021-10-11 09:30:00 2021-10-11 09:30:00 Outpatient ROMULO BROWNING [facility] [id number] [facility] 2021-10-10 13:30:00 2021-10-10 13:30:00 Outpatient PRASANNA LOOMIS [facility] [id number] [facility] 2021-10-10 13:30:00 2021-10-10 13:30:00 Outpatient R PRASANNA VARGAS [facility] [id number] [facility] 2021-10-10 13:30:00 2021-10-10 13:30:00 Outpatient R PRASANNA VARGAS [facility] [id number] [facility] 2021-10-10 13:30:00 2021-10-10 13:30:00 Outpatient R PRASANNA VARGAS [facility] [id number] [facility] 2021-10-10 13:30:00 2021-10-10 13:30:00 Outpatient R PRASANNA VARGAS [facility] [id number] [facility] 2021-10-10 13:30:00 2021-10-10 13:30:00 Outpatient R PRASANNA VARGAS [facility] [id number] [facility] 2021-10-10 13:30:00 2021-10-10 13:30:00 Outpatient PRASANNA LOOMIS [facility] [id number] [facility] 2021-10-05 00:00:00 2021-10-05 00:00:00 Patient Secure Msg [facility] 1.2.840.114 350.1.13.10 4.2.7.2.686 [id number] [facility] 2021-10-05 00:00:00 2021-10-05 00:00:00 Patient Secure g Jillina [facility] 1.2.840.114 350.1.13.10 4.2.7.2.686 [id number] [facility] 2021-10-04 00:00:00 2021-10-04 00:00:00 Pre Visit Outreach Melia Rodriguez [place] 1.2.840.114 350.1.13.10 4.2.7.2.686 [id number] [facility] 2021-09-28 13:30:00 2021-09-28 13:45:00 Office Visit Onur Celina A [facility] [address] 1.2.840.114 350.1.13.10 4.2.7.2.686 [id number] [facility] 2021-09-28 13:30:00 2021-09-28 13:30:00 Outpatient CELINA STONE [facility] [id number] [facility] 2021-09-28 13:30:00 2021-09-28 13:30:00 Outpatient CELINA STONE [facility] [id number] [facility] 2021-09-28 00:00:00 2021-09-28 00:00:00 Patient Secure Msg OnurCelina [facility] 1.2.840.114 350.1.13.10 4.2.7.2.686 [id number] [facility] 2021-09-27 14:00:00 2021-09-27 14:00:00 Outpatient TETO BRANTLEY [facility] [id number] [facility] 2021-09-27 09:30:00 2021-09-27 09:30:00 Outpatient DANIA RICARDO [facility] [id number] [facility] 2021-09-27 09:30:00 2021-09-27 09:30:00 Outpatient DANIA RICARDO [facility] [id number] [facility] 2021-09-27 09:30:00 2021-09-27 09:30:00 Outpatient DANIA RICARDO [facility] [id number] [facility] 2021-09-26 10:45:00 2021-09-26 10:45:00 Outpatient R CRICKET TAYLOR [facility] [id number] [facility] 2021-09-26 10:45:00 2021-09-26 10:45:00 Outpatient R CRICKET TAYLOR [facility] [id number] [facility] 2021-09-26 00:00:00 2021-09-26 00:00:00 Patient Secure [facility]ab[facility] 1.2.840.114 350.1.13.10 4.2.7.2.686 [id number] [facility] 2021-09-26 00:00:00 2021-09-26 00:00:00 Patient Secure Vijay Caraballo [facility] TO[facility] 1.2.840.114 350.1.13.10 4.2.7.2.686 [id number] [facility] 2021-09-25 10:20:00 2021-09-25 11:10:42 Urgent Care Flaco Boyd Ramsey Medranoanda [facility] 1.2.840.114 350.1.13.10 4.2.7.2.686 [id number] [facility] 2021-09-25 10:20:00 2021-09-25 11:10:42 Outpatient R OLIVERFLACO [facility] [id number] [facility] 2021-09-25 10:20:00 2021-09-25 10:20:00 Outpatient R FLACO BOYD [facility] [id number] [facility] 2021-09-25 10:00:00 2021-09-25 10:00:00 Outpatient R PRASANNA VARGAS [facility] [id number] [facility] 2021-09-25 00:00:00 2021-09-25 00:00:00 Telephone Noelle Boydtany [facility] 1.2.840.114 350.1.13.10 4.2.7.2.686 [id number] [facility] 2021-09-25 00:00:00 2021-09-25 00:00:00 Patient Secure Msg Prasanna [facility]argas [facility] 1.2.840.114 350.1.13.10 4.2.7.2.686 [id number] [facility] 2021-09-25 00:00:00 2021-09-25 00:00:00 Telephone Cricket Taylor [facility] TELEPHONE SWITCHBOARD OPERATOR [facility] 1.2.840.114 350.1.13.10 4.2.7.2.686 [id number] [facility] 2021-09-25 00:00:00 2021-09-25 00:00:00 Telephone Celina Mixon [facility] 1.2.840.114 350.1.13.10 4.2.7.2.686 [id number] [facility] 2021-09-15 00:00:00 2021-09-15 00:00:00 Patient Secure Msg Kendal Zamudio [facility] 1.2840.114 350.1.13.10 4.2.7.2.686 [id number] [facility] 2021-09-15 00:00:00 2021-09-15 00:00:00 Patient Secure Msg Kendal Zamudio [facility] 1.2.840.114 350.1.13.10 4.2.7.2.686 [id number] [facility] 2021-09-15 00:00:00 2021-09-15 00:00:00 Patient Secure Msg Kendal Zamudio [facility] 1..114 350.1.13.10 4.2.7.2.686 [id number] [facility] 2021-09-14 00:00:00 2021-09-14 00:00:00 Patient Secure Msg Vijay Martinez [facility] 1..114 350.1.13.10 4.2.7.2.686 [id number] [facility] 2021-09-14 00:00:00 2021-09-14 00:00:00 Patient Secure Msg Doctor Unassigned, [place] [facility] 1.0114 350.1.13.10 4.2.7.2.686 [id number] [facility] 2021-09-12 10:30:00 2021-09-12 10:30:00 Outpatient CELINA STONE [facility] [id number] [facility] 2021-09-12 10:30:00 2021-09-12 10:30:00 Outpatient CELINA STONE [facility] [id number] [facility] 2021-09-12 00:00:00 2021-09-12 00:00:00 Patient Secure Msg Daniel Dsouza [facility] 1..114 350.1.13.10 4.2.7.2.686 [id number] [facility] 2021-09-12 00:00:00 2021-09-12 00:00:00 Orders Only Doctor Unassigned, [place] [facility] 1.0.114 350.1.13.10 4.2.7.2.686 [id number] [facility] 2021-09-12 00:00:00 2021-09-12 00:00:00 Patient Secure Msg Vijay Martinez [facility] TO[facility]O?[facility] 1.2840.114 350.1.13.10 4.2.7.2.686 [id number] 044 [id number] [facility] 2021-09-05 00:00:00 2021-09-05 00:00:00 Patient Secure Msg Vijay Martinez [facility] TO[facility]O?[facility] 1.2840.114 350.1.13.10 4.2.7.2.686 [id number] [id number] [facility] 2021-09-05 00:00:00 2021-09-05 00:00:00 Patient Secure Msg Doctor Unassigned, [place] [facility] 1.840.114 350.1.13.10 4.2.7.2.686 [id number] [facility] 2021-09-05 00:00:00 2021-09-05 00:00:00 Patient Secure Msg Doctor Unassigned, [place] [facility] 1.2840.114 350.1.13.10 4.2.7.2.686 [id number] [facility] 2021-09-04 00:00:00 2021-09-04 00:00:00 Patient Secure Msg [facility] 1.2840.114 350.1.13.10 4.2.7.2.686 [id number] 044 [id number] [facility] 2021-08-28 00:00:00 2021-08-28 00:00:00 Patient Secure Msg Harsh Charles [facility] 1.840.114 350.1.13.10 4.2.7.2.686 [id number] [facility] 2021-08-25 00:00:00 2021-08-25 00:00:00 Telephone [facility] 1.2840.114 350.1.13.10 4.2.7.2.686 [id number] [facility] 2021-08-25 00:00:00 2021-08-25 00:00:00 Patient Secure Msg [facility]ijay [facility] 1.2840.114 350.1.13.10 4.2.7.2.686 [id number] 044 [id number] [facility] 2021-08-24 00:00:00 2021-08-24 00:00:00 Telephone Vijay Martinez [facility] 1.2840.114 350.1.13.10 4.2.7.2.686 [id number] 044 [id number] [facility] 2021-08-24 00:00:00 2021-08-24 00:00:00 Patient Secure Msg Vijay Martinez [facility] 1.2840.114 350.1.13.10 4.2.7.2.686 [id number] 044 [id number] [facility] 2021-08-23 00:00:00 2021-08-23 00:00:00 Patient Secure Msg Vijay Martinez [facility] 1.2840.114 350.1.13.10 4.2.7.2.686 [id number] 044 [id number] [facility] 2021-08-23 00:00:00 2021-08-23 00:00:00 Telephone Vijay Martinez [facility] 1.2840.114 350.1.13.10 4.2.7.2.686 [id number] 044 [id number] [facility] 2021-08-22 00:00:00 2021-08-22 00:00:00 Telephone Vijay Martinez [facility] TO[facility]O?[facility] 1.840.114 350.1.13.10 4.2.7.2.686 [id number] 044 [id number] [facility] 2021-08-22 00:00:00 2021-08-22 00:00:00 Patient Secure Msg Hallie Wilkinson [facility] TOÑO?[facility] MEDICAL OFFICE BUILDING 1.840.114 350.1.13.10 4.2.7.2.686 [id number] 044 [id number] [facility] 2021-08-18 00:00:00 2021-08-18 00:00:00 Telephone Vijay Martinez [facility] 1.840.114 350.1.13.10 4.2.7.2.686 [id number] 044 [id number] [facility] 2021-08-17 09:00:00 2021-08-17 09:00:00 Outpatient CELINA STONE [facility] [id number] [facility] 2021-08-17 09:00:00 2021-08-17 09:00:00 Outpatient CELINA STONE [facility] [id number] [facility] 2021-08-17 00:00:00 2021-08-17 00:00:00 Patient Secure Msg Prasanna Vargas [facility] PROFESSIO NAL BUILDING 1..840.114 350.1.13.10 4.2.7.2.686 [id number] [facility] 2021-08-17 00:00:00 2021-08-17 00:00:00 Patient Secure Msg Vijay Martinez [facility] TOÑO?[facility] MEDICAL OFFICE BUILDING 1.2840.114 350.1.13.10 4.2.7.2.686 [id number] 044 [id number] [facility] 2021-08-17 00:00:00 2021-08-17 00:00:00 Patient Secure Msg Vijay Martinez [facility] 1.2840.114 350.1.13.10 4.2.7.2.686 [id number] 044 [id number] [facility] 2021-08-16 00:00:00 2021-08-16 00:00:00 Patient Secure Msg Vijay Martinez [facility] 1.2840.114 350.1.13.10 4.2.7.2.686 [id number] 044 [id number] [facility] 2021-08-16 00:00:00 2021-08-16 00:00:00 Patient Secure Msg Doctor Unassigned, [place] [facility] TOÑO?[facility] 1.84.114 350.1.13.10 4.2.7.2.686 [id number] 044 [id number] [facility] 2021-08-16 00:00:00 2021-08-16 00:00:00 Patient Secure Msg Vijay Martinez [facility] 1.284.114 350.1.13.10 4.2.7.2.686 [id number] 044 [id number] [facility] 2021-08-16 00:00:00 2021-08-16 00:00:00 Patient Secure Msg Vijay Martinez [facility] TOÑO?[facility] MEDICAL OFFICE BUILDING 1.284.114 350.1.13.10 4.2.7.2.686 [id number] 044 [id number] [facility] 2021-08-15 15:30:00 2021-08-15 16:16:42 Office Visit Adán Kim [facility] 1.840.114 350.1.13.10 4.2.7.2.686 [id number] [facility] 2021-08-15 15:30:00 2021-08-15 16:16:42 [facility] [id number] [facility] 2021-08-15 15:30:00 2021-08-15 15:30:[address] [facility] [id number] [facility] 2021-08-15 15:30:00 2021-08-15 15:30:00 Outpatient ADÁN DIEGO [facility] [id number] [facility] 2021-08-15 15:30:00 2021-08-15 15:30:[address] [facility] [id number] [facility] 2021-08-15 09:27:00 2021-08-15 12:26:00 Emergency MAURA DALE [facility] ERT [id number] [facility] 2021-08-15 09:27:00 2021-08-15 12:26:00 Emergency Maura Samayoa [facility] 1..840.114 350.1.13.10 4.2.7.2.686 [id number] [facility] 2021-08-15 09:27:00 2021-08-15 12:26:00 Emergency MAURA DALE [facility] ERT [id number] [facility] 2021-08-15 00:00:00 2021-08-15 00:00:00 Patient Secure Msg Doctor Unassigned, [place] [facility] 1..840.114 350.1.13.10 4.2.7.2.686 [id number] [facility] 2021-08-14 13:25:00 2021-08-14 23:59:00 Outpatient VJIAY ARAUZ [facility] [id number] [facility] 2021-08-14 13:25:00 2021-08-14 23:59:00 Outpatient R VIJAY MARTINEZ [facility] [id number] [facility] 2021-08-14 13:25:00 2021-08-14 13:25:00 Outpatient R VÍCTORVIJAY Cannon [facility] [id number] [facility] 2021-08-14 12:19:07 2021-08-14 13:24:00 Outpatient R VÍCTORVIJAY Cannon [facility] [id number] [facility] 2021-08-14 12:19:07 2021-08-14 13:24:00 Outpatient R VÍCTORVIJAY Cannon [facility] [id number] [facility] 2021-08-14 12:30:00 2021-08-14 13:01:24 Sound Engineer Visit Lab, Filippo [facility]ene[facility]assandra [facility] MEDICAL OFFICE BUILDING 1.2.840.114 350.1.13.10 4.2.7.2.686 [id number] [facility] 2021-08-14 12:30:00 2021-08-14 12:45:00 Sound Engineer Visit Lab, Filippo Reneekassandra [facility] MEDICAL OFFICE BUILDING 1.2.840.114 350.1.13.10 4.2.7.2.686 [id number] [facility] 2021-08-14 11:30:00 2021-08-14 12:31:12 [facility] MEDICAL OFFICE BUILDING 1.2.840.114 350.1.13.10 4.2.7.2.686 [id number] 044 [id number] [facility] 2021-08-14 11:30:00 2021-08-14 12:31:12 Outpatient R JUANCYIE [facility] [id number] [facility] 2021-08-14 00:00:00 2021-08-14 00:00:00 Patient Secure Msg Vijay Martinez [facility] TO[facility]O?[facility] 1.2.840.114 350.1.13.10 4.2.7.2.686 [id number] 044 [id number] [facility] 2021-08-14 00:00:00 2021-08-14 00:00:00 Patient Secure Vijay Caraballo [facility] TO[facility]O?[facility] 1.2.840.114 350.1.13.10 4.2.7.2.686 [id number] 044 [id number] [facility] 2021-08-09 14:45:00 2021-08-09 14:45:00 Outpatient R ADÁN KIM [facility] [id number] [facility] 2021-08-09 00:00:00 2021-08-09 00:00:00 Telephone Vijay Martinez [facility] TO[facility]O?[facility] 1.2.840.114 350.1.13.10 4.2.7.2.686 [id number] [facility] 2021-08-08 11:30:00 2021-08-08 23:59:00 Outpatient R JUAN VIJAY [facility] [id number] [facility] 2021-08-08 11:30:00 2021-08-08 23:59:00 Hospital Encounter Vijay Martinez [facility] TO[facility]O?[facility] 1.2.840.114 350.1.13.10 4.2.7.2.686 [id number] [facility] 2021-08-08 11:15:00 2021-08-08 11:15:00 Outpatient R JUAN VIJAY [facility] [id number] [facility] 2021-08-08 11:00:00 2021-08-08 11:00:00 Outpatient R VIJAY MARTINEZ [facility] [id number] [facility] 2021-08-08 00:00:00 2021-08-08 00:00:00 Patient Secure Msg Doctor Unassigned, [place] [facility] 1.114 350.1.13.10 4.2.7.2.686 [id number] [facility] 2021-08-07 09:30:00 2021-08-07 10:23:21 Office Visit Vijay Martinez [facility] TOÑO?[facility] 1.114 350.1.13.10 4.2.7.2.686 [id number] [id number] [facility] 2021-08-07 09:30:00 2021-08-07 10:23:21 Outpatient R VÍCTORVIJAY Cannon [facility] [id number] [facility] 2021-08-07 09:30:00 2021-08-07 09:30:00 Outpatient R VÍCTORVIJAY Cannon [facility] [id number] [facility] 2021-08-07 00:00:00 2021-08-07 00:00:00 Patient Secure Msg Vijay Martinez [facility] TOÑO?[facility] 1.114 350.1.13.10 4.2.7.2.686 [id number] [id number] [facility] 2021-08-07 00:00:00 2021-08-07 00:00:00 Patient Secure Msg Vijay Martinez [facility] TOÑO?[facility] 1.114 350.1.13.10 4.2.7.2.686 [id number] 044 [id number] [facility] 2021-08-07 00:00:00 2021-08-07 00:00:00 Patient Secure Msg Celina Mixon [facility] 1.114 350.1.13.10 4.2.7.2.686 [id number] [facility] 2021-08-04 10:00:00 2021-08-04 10:00:00 Outpatient R PETRA RENO [facility] [id number] [facility] 2021-08-04 00:00:00 2021-08-04 00:00:00 Patient Secure Msg Vijay Martinez [facility] 1.84114 350.1.13.10 4.2.7.2.686 [id number] [id number] [facility] 2021-08-03 11:00:00 2021-08-03 12:48:43 Office Visit Jayy Diaz [employer] 05.14.840.114 350.1.13.10 4.2.7.2.686 [id number] [facility] 2021-08-03 11:00:00 2021-08-03 12:48:43 Outpatient R [facility] [id number] [facility] 2021-08-03 11:00:00 2021-08-03 11:00:00 Outpatient R JAYY DIAZ [facility] [id number] [facility] 2021-08-03 00:00:00 2021-08-03 00:00:00 Patient Secure Yin Zhengine A [facility] [place] .84.114 350.1.13.10 4.2.7.2.686 [id number] [facility] 2021-08-02 00:00:00 2021-08-02 00:00:00 Telephone Vijay Martinez [facility] 1.84.114 350.1.13.10 4.2.7.2.686 [id number] 044 [id number] [facility] 2021-07-21 08:00:00 2021-07-21 08:52:53 Outpatient DARRION QUIROZ HOWARD [facility] [id number] [facility] 2021-07-17 11:30:00 2021-07-17 11:30:00 Outpatient Farzana VÍCTORVIJAY Cannon [facility] [id number] [facility] 2021-07-17 00:00:00 2021-07-17 00:00:00 Patient Secure Msg Vijay Martinez [facility] TOÑO?[facility] OFFICE BUILDING 1.2.840.114 350.1.13.10 4.2.7.2.686 [id number] [facility] 2021-06-19 00:00:00 2021-06-19 00:00:00 Telephone VíctorVijay cannon [facility] 1.2.840.114 350.1.13.10 4.2.7.2.686 [id number] 044 [id number] [facility] 2021-06-09 00:00:00 2021-06-09 00:00:00 Telephone Reji [facility] 1.2.840.114 350.1.13.10 4.2.7.2.686 [id number] [facility] 2021-06-06 11:15:00 2021-06-06 11:15:00 Outpatient TETO BRANTLEY [facility] [id number] [facility] 2021-06-06 11:15:00 2021-06-06 11:15:00 Outpatient TETO BRANTLEY [facility] [id number] [facility] 2021-06-02 15:45:00 2021-06-02 15:45:00 Outpatient CLAUDETTE CEDILLO [facility] [id number] [facility] 2021-05-31 10:00:00 2021-05-31 10:46:31 Outpatient R VIJAY MARTINEZ [facility] [id number] [facility] 2021-05-31 10:00:00 2021-05-31 10:46:31 Office Visit Vijay Martinez [facility] TOÑO?[facility] 1.2.840.114 350.1.13.10 4.2.7.2.686 [id number] [facility] 2021-05-31 10:00:00 2021-05-31 10:46:31 Outpatient R VIJAY MARTINEZ [facility] [id number] [facility] 2021-05-31 00:00:00 2021-05-31 00:00:00 Orders Only Doctor Unassigned, [place] [facility] 1.2.840.114 350.1.13.10 4.2.7.2.686 [id number] [facility] 2021-05-26 00:00:00 2021-05-26 00:00:00 Telephone Skylar Groves [facility] MEDICAL OFFICE BUILDING 1.2840.114 350.1.13.10 4.2.7.2.686 [id number] 044 [id number] [facility] 2021-05-26 00:00:00 2021-05-26 00:00:00 Patient Secure Msg [facility] 1.2840.114 350.1.13.10 4.2.7.2.686 [id number] [facility] 2021-05-25 14:00:00 2021-05-25 14:30:00 Telemedici ne Visit Skylar Groves [facility] TOÑO?[facility] MEDICAL OFFICE BUILDING 1.2.840.114 350.1.13.10 4.2.7.2.686 [id number] [facility] 2021-05-25 14:00:00 2021-05-25 14:00:00 Outpatient R SKYLAR GROVES [facility] [id number] [facility] 2021-05-25 14:00:00 2021-05-25 14:00:00 Outpatient R SKYLAR GROVES [facility] [id number] [facility] 2021-05-25 00:00:00 2021-05-25 00:00:00 Patient Secure Msg Skylar Groves [facility] TO[facility]O?[facility] 1.2.840.114 350.1.13.10 4.2.7.2.686 [id number] 044 [id number] [facility] 2021-05-25 00:00:00 2021-05-25 00:00:00 Patient Secure Msg Skylar Groves [facility] TOÑO?[facility] MEDICAL OFFICE BUILDING 1.2.840.114 350.1.13.10 4.2.7.2.686 [id number] 044 [id number] [facility] 2021-05-24 00:00:00 2021-05-24 00:00:00 Telephone Rad Serra KPilarHPilar [facility] BUILDING 1.2.840.114 350.1.13.10 4.2.7.2.686 [id number] [id number] [facility] 2021-05-24 00:00:00 2021-05-24 00:00:00 Patient Secure Msg Rad SerraHPilar [facility] BUILDING 1.2.840.114 350.1.13.10 4.2.7.2.686 [id number] [facility] 2021-05-24 00:00:00 2021-05-24 00:00:00 Patient Secure Msg CristinaCarmelina ibrahimrico A [facility] TOÑO?[facility] MEDICAL OFFICE BUILDING 1.2.840.114 350.1.13.10 4.2.7.2.686 [id number] 044 [id number] [facility] 2021-05-23 10:00:00 2021-05-23 10:00:00 Outpatient R [facility] [id number] [facility] 2021-05-23 10:00:00 2021-05-23 10:00:00 Outpatient R [facility] [id number] [facility] 2021-05-23 00:00:00 2021-05-23 00:00:00 Patient Secure Msg Carmelina Evansrico A [facility] 1..840.114 350.1.13.10 4.2.7.2.686 [id number] [facility] 2021-05-16 09:00:00 2021-05-16 09:00:00 Outpatient R TETO CARNES [facility] [id number] [facility] 2021-05-12 00:00:00 2021-05-12 00:00:00 Orders Only Doctor Unassigned, [place] [facility] 1..840.114 350.1.13.10 4.2.7.2.686 [id number] [facility] 2021-05-10 13:00:00 2021-05-10 13:00:00 Outpatient R CLAUDETTE EVANS [facility] [id number] [facility] 2021-05-10 13:00:00 2021-05-10 13:00:00 Outpatient R CLAUDETTE EVANS [facility] [id number] [facility] 2021-05-09 00:00:00 2021-05-09 00:00:00 Telephone Prasanna Vargas [facility] PROFESSIO NAL BUILDING 1..840.114 350.1.13.10 4.2.7.2.686 [id number] [facility] 2021-05-09 00:00:00 2021-05-09 00:00:00 Patient Secure Msg Rad SerraPilar [facility] 1.2.840.114 350.1.13.10 4.2.7.2.686 [id number] [facility] 2021-05-08 16:00:00 2021-05-08 16:00:00 Outpatient JE CRABTREE [facility] [id number] [facility] 2021-05-08 16:00:00 2021-05-08 16:00:00 Outpatient JE CRABTREE [facility] [id number] [facility] 2021-05-08 00:00:00 2021-05-08 00:00:00 Patient Secure Msg Rad SerraPilar [facility] BUILDING 1.2.840.114 350.1.13.10 4.2.7.2.686 [id number] [id number] [facility] 2021-05-08 00:00:00 2021-05-08 00:00:00 Patient Secure Msg Rad SerraPilra [facility] BUILDING 1.2.840.114 350.1.13.10 4.2.7.2.686 [id number] [facility] 2021-05-04 00:00:00 2021-05-04 00:00:00 Patient Secure Msg Rad SerraPilar [facility] NAL BUILDING 1.2.840.114 350.1.13.10 4.2.7.2.686 [id number] [facility] 2021-05-04 00:00:00 2021-05-04 00:00:00 Patient Secure Msg Reji Díaz [facility] 1.2.840.114 350.1.13.10 4.2.7.2.686 [id number] [facility] 2021-05-03 11:15:36 2021-05-03 23:59:00 [facility] [id number] [facility] 2021-05-03 11:15:36 2021-05-03 23:59:00 Hospital Encounter [facility] 1.2.840.114 350.1.13.10 4.2.7.2.686 [id number] [facility] 2021-05-03 00:00:00 2021-05-03 00:00:00 Telephone Claudette Evans [facility] TOÑO?[facility] MEDICAL OFFICE BUILDING 1.2.840.114 350.1.13.10 4.2.7.2.686 [id number] 044 [id number] [facility] 2021-05-02 00:00:00 2021-05-02 00:00:00 Telephone Rad Serra [facility] BUILDING 1..840.114 350.1.13.10 4.2.7.2.686 [id number] [facility] 2021-05-02 00:00:00 2021-05-02 00:00:00 Patient Secure Msg Claudette Evans Kassandra [facility] TO[facility]O?[facility] 1.2.840.114 350.1.13.10 4.2.7.2.686 [id number] [facility] 2021-05-02 00:00:00 2021-05-02 00:00:00 Telephone Claudette Evans [facility] TO[facility] 1.2.840.114 350.1.13.10 4.2.7.2.686 [id number] [facility] 2021-05-02 00:00:00 2021-05-02 00:00:00 Patient Secure Msg Rad Serra [facility] 1.84.114 350.1.13.10 4.2.7.2.686 [id number] [facility] 2021-05-02 00:00:00 2021-05-02 00:00:00 Patient Secure Msg Claudette Evans [facility] TO[facility]O?[facility] 1.84114 350.1.13.10 4.2.7.2.686 [id number] [facility] 2021-04-28 00:00:00 2021-04-28 00:00:00 Patient Secure Msg Claudette Evans [facility] TO[facility]O?[facility] OFFICE BUILD[facility] 1.84.114 350.1.13.10 4.2.7.2.686 [id number] [facility] 2021-04-27 14:24:00 2021-04-27 15:49:00 Emergency X MAGGIE HAMILTON [facility] ERT [id number] [facility] 2021-04-27 14:24:00 2021-04-27 15:49:00 Emergency Maggie Hamilton [facility] 1.84.114 350.1.13.10 4.2.7.2.686 [id number] [facility] 2021-04-27 11:15:00 2021-04-27 11:30:00 Laboratory Only Only, Ang Db Test Unknown, Attending Thony Johnson [facility] TO[facility]O?[facility] 1.84.114 350.1.13.10 4.2.7.2.686 [id number] [facility] 2021-04-27 11:15:00 2021-04-27 11:15:00 Outpatient R THONY JOHNSON [facility] [id number] [facility] 2021-04-27 00:00:00 2021-04-27 00:00:00 Orders Only Doctor Unassigned, [place] [facility] 1.2840.114 350.1.13.10 4.2.7.2.686 [id number] [facility] 2021-04-20 15:00:00 2021-04-20 15:00:00 Outpatient EDER [facility] [id number] [facility] 2021-04-13 00:00:00 2021-04-13 00:00:00 Patient Secure Msg Carmelina Evansrico Kassandra [facility] TOÑO?[facility] MEDICAL OFFICE BUILDING 1.84.114 350.1.13.10 4.2.7.2.686 [id number] [facility] 2021-04-12 00:00:00 2021-04-12 00:00:00 Telephone Claudette Evans [facility] TOÑO?[facility] MEDICAL OFFICE BUILDING 1.84.114 350.1.13.10 4.2.7.2.686 [id number] 044 [id number] [facility] 2021-03-27 00:00:00 2021-03-27 00:00:00 Telephone Prasanna Vargas [facility] EDNA ESCUDERO NAL BUILDING 1.84.114 350.1.13.10 4.2.7.2.686 [id number] [facility] 2021-03-24 00:00:00 2021-03-24 00:00:00 Patient Secure Msg Doctor Unassigned, [place] [facility] 1.284114 350.1.13.10 4.2.7.2.686 [id number] [facility] 2021-03-23 13:30:00 2021-03-23 13:30:00 Outpatient PINO AGUIAR [facility] [id number] [facility] 2021-03-23 13:30:00 2021-03-23 13:30:00 Outpatient PINO AGUIAR [facility] [id number] [facility] 2021-03-22 09:20:00 2021-03-22 09:20:00 Outpatient R ADITYA MEEKS STRAHIL [facility] [id number] [facility] 2021-03-22 09:20:00 2021-03-22 09:20:00 Outpatient R ADITYA MEEKS STRANYEz [facility] [id number] [facility] 2021-03-20 00:00:00 2021-03-20 00:00:00 Outpatient CLAUDETTE CEDILLO [facility] [id number] [facility] 2021-03-18 00:00:00 2021-03-18 00:00:00 Case Management Cristina [facility] MEDICAL OFFICE BUILDING .2.840.114 350.1.13.10 4.2.7.2.686 [id number] [id number] [facility] 2021-03-16 11:16:07 2021-03-16 11:31:07 Sound Engineer Visit Lab, Ang - Db [facility] MEDICAL OFFICE BUILDING .2.840.114 350.1.13.10 4.2.7.2.686 [id number] [facility] 2021-03-16 11:30:00 2021-03-16 11:30:00 Outpatient R CLAUDETTE EVANS [facility] [id number] [facility] 2021-03-16 11:00:00 2021-03-16 11:14:45 Outpatient R CLAUDETTE EVANS [facility] [id number] [facility] 2021-03-16 10:00:58 2021-03-16 11:14:45 Office Visit Claudette Evans [facility] LULU LUNDBERG[facility] MEDICAL OFFICE BUILDING 1.2.840.114 350.1.13.10 4.2.7.2.686 [id number] 044 [id number] [facility] 2021-03-16 00:00:00 2021-03-16 00:00:00 Patient Secure Msg Claudette [facility] MEDICAL OFFICE BUILDING 1..840.114 350.1.13.10 4.2.7.2.686 [id number] 044 [id number] [facility] 2021-03-02 16:15:00 2021-03-02 16:15:00 Outpatient R CRISTINACARMELINA IBRAHIMTAINABONNIE [facility] [id number] [facility] 2021-02-28 18:30:00 2021-02-28 18:30:00 Outpatient R ILEANA MEDRANO [facility] [id number] [facility] 2021-02-28 00:00:00 2021-02-28 00:00:00 Telephone [facility] Medical Office Building 1.2.840.114 350.1.13.10 4.2.7.2.686 [id number] [facility] 2021-02-27 09:00:00 2021-02-27 09:00:00 Outpatient R AMELIA HAMMOND [facility] [id number] [facility] 2021-02-23 00:00:00 2021-02-23 00:00:00 Telephone Claudette Evans [facility] Medical Office Building 1.2.840.114 350.1.13.10 4.2.7.2.686 [id number] [id number] [facility] 2021-02-10 18:12:00 2021-02-10 23:39:00 Emergency Kaycee Méndez [facility] 1.2.840.114 350.1.13.10 4.2.7.2.686 [id number] [facility] 2021-02-10 00:00:00 2021-02-10 00:00:00 Patient Secure Msg Carmelina Evansdiful A [facility] TO[facility] MEDICAL OFFICE BUILDING 1.2840.114 350.1.13.10 4.2.7.2.686 [id number] [id number] [facility] 2021-02-10 00:00:00 2021-02-10 00:00:00 Patient Secure Msg Branden Evansful A [facility] ROSENE?[facility] MEDICAL OFFICE BUILDING 1.2840.114 350.1.13.10 4.2.7.2.686 [id number] 044 [id number] [facility] 2021-02-10 00:00:00 2021-02-10 00:00:00 Patient Secure Msg Branden Evansful A [facility] ANGLEDAYAMI TOÑO?[facility] MEDICAL OFFICE BUILDING 1.2840.114 350.1.13.10 4.2.7.2.686 [id number] [facility] 2021-02-10 00:00:00 2021-02-10 00:00:00 Patient Secure Msg Branden Evansful A [facility] ANGLEDAYAMI TOÑO?[facility] MEDICAL OFFICE BUILDING 1.2840.114 350.1.13.10 4.2.7.2.686 [id number] 044 [id number] [facility] 2021-02-09 13:40:00 2021-02-09 23:59:00 Hospital Encounter Branden Evansful A [facility] Toño?[facility] Medical Office Building 1.2840.114 350.1.13.10 4.2.7.2.686 [id number] [facility] 2021-02-09 13:49:05 2021-02-09 14:04:05 Sound Engineer Visit Lab, Ang - Db Claudette Evans [facility] Toño?[facility] Medical Office Building 1.2.840.114 350.1.13.10 4.2.7.2.686 [id number] [facility] 2021-02-09 12:23:13 2021-02-09 13:47:12 Office Visit Claudette Evans [facility] Medical Office Building 1..840.114 350.1.13.10 4.2.7.2.686 [id number] [facility] 2021-02-09 13:00:00 2021-02-09 13:00:00 Outpatient R CLAUDETTE EVANS [facility] [id number] [facility] 2021-02-09 00:00:00 2021-02-09 00:00:00 Patient Secure Msg Doctor Unassigned, [place] [facility] 1..840.114 350.1.13.10 4.2.7.2.686 [id number] [facility] 2021-02-08 10:20:00 2021-02-08 10:20:00 Outpatient R ADITYA MEEKS STRAHIL [facility] [id number] [facility] 2021-02-07 00:00:00 2021-02-07 00:00:00 Patient Secure Msg Claudette Evans [facility] TO[facility] 1.2.840.114 350.1.13.10 4.2.7.2.686 [id number] [facility] 2021-02-02 10:30:00 2021-02-02 10:30:00 Outpatient R SKYLAR GROVES [facility] [id number] [facility] 2021-02-02 00:00:00 2021-02-02 00:00:00 Telephone Claudette Evans [facility] Toño?[facility] Medical Office Building 1.2840.114 350.1.13.10 4.2.7.2.686 [id number] [facility] 2021-02-01 08:30:00 2021-02-01 08:30:00 Outpatient R BRODIE SKYLAR [facility] [id number] [facility] 2021-01-31 18:44:04 2021-01-31 19:41:26 Urgent Care [facility]elle [facility] hospital Toño?[facility] Medical Office Building 1.2840.114 350.1.13.10 4.2.7.2.686 [id number] [facility] 2021-01-31 19:00:00 2021-01-31 19:00:00 Outpatient R FLACO BOYD [facility] [id number] [facility] 2021-01-31 00:00:00 2021-01-31 00:00:00 Telephone Claudette Evans [facility] Toño?[facility] Medical Office Building 1.84.114 350.1.13.10 4.2.7.2.686 [id number] 044 [id number] [facility] 2021-01-31 00:00:00 2021-01-31 00:00:00 Patient Secure Msg Claudette Evans [facility] TOÑO?[facility] MEDICAL OFFICE BUILDING 1.2840.114 350.1.13.10 4.2.7.2.686 [id number] [id number] [facility] 2021-01-30 00:00:00 2021-01-30 00:00:00 [facility] 1.84.114 350.1.13.10 4.2.7.2.686 [id number] [facility] 2021-01-30 00:00:00 2021-01-30 00:00:00 Patient Secure Msg Claudette Evans [facility] OFF[facility] BUILDING ONE 1.840.114 350.1.13.10 4.2.7.2.686 [id number] [facility] 2021-01-26 14:00:00 2021-01-26 14:00:00 Outpatient R RAD SERRA [facility] [id number] [facility] 2021-01-26 00:00:00 2021-01-26 00:00:00 Patient Secure g Skylar Groves [facility] TOÑO?[facility] OFFICE BUILDING 1..840.114 350.1.13.10 4.2.7.2.686 [id number] [id number] [facility] 2021-01-25 15:00:00 2021-01-25 15:00:00 Outpatient R [facility] [id number] [facility] 2021-01-21 00:00:00 2021-01-21 00:00:00 Patient Secure g Skylar Groves [facility] TOÑO?[facility] MEDICAL OFFICE BUILDING 1..840.114 350.1.13.10 4.2.7.2.686 [id number] 044 [id number] [facility] 2021-01-20 16:51:22 2021-01-20 17:12:41 Telemedici ne Visit Skylar Groves [facility] Toño?[facility] Medical Office Building 1..840.114 350.1.13.10 4.2.7.2.686 [id number] [facility] 2021-01-20 16:30:00 2021-01-20 16:30:00 Outpatient R SKYLAR GROVES [facility] [id number] [facility] 2021-01-19 10:15:00 2021-01-19 10:15:00 Outpatient R KAYLEY GARCÍA [facility] [id number] [facility] 2021-01-14 00:00:00 2021-01-14 00:00:00 Case Management Kassandra Robledo [facility] 1.840.114 350.1.13.10 4.2.7.2.686 [id number] [facility] 2021-01-14 00:00:00 2021-01-14 00:00:00 Patient Secure Msg Doctor Unassigned, [place] [facility] 1.840.114 350.1.13.10 4.2.7.2.686 [id number] [facility] 2021-01-12 16:10:00 2021-01-12 19:45:00 Emergency Karin Matthews [facility] 1.840.114 350.1.13.10 4.2.7.2.686 [id number] [facility] 2021-01-12 15:20:00 2021-01-12 15:20:00 Outpatient ILEANA CASE [facility] [id number] [facility] 2021-01-12 14:46:57 2021-01-12 15:06:57 Urgent Care Thony Johnson [facility] Medical Office Building 1..840.114 350.1.13.10 4.2.7.2.686 [id number] [facility] 2020-12-26 15:30:00 2020-12-26 16:13:32 Outpatient RAD MATAMOROS [facility] [id number] [facility] 2020-12-26 15:30:00 2020-12-26 16:13:32 Office Visit Rad Serra [facility] PROFESSIO NAL BUILDING 1..840.114 350.1.13.10 4.2.7.2.686 [id number] [id number] [facility] 2020-12-26 15:00:32 2020-12-26 16:13:32 Office Visit Rad Serra [facility] Building 1.2.840.114 350.1.13.10 4.2.7.2.686 [id number] [facility] 2020-12-26 15:30:00 2020-12-26 15:30:00 Outpatient R RAD SERRA [facility] [id number] [facility] 2020-11-29 00:00:00 2020-11-29 00:00:00 Patient Secure Msg Rad Serra [facility] BUILDING 1.2.840.114 350.1.13.10 4.2.7.2.686 [id number] [facility] 2020-11-22 11:00:00 2020-11-22 11:00:00 Outpatient R CELINA MIXON [facility] [id number] [facility] 2020-11-10 18:42:46 2020-11-10 19:53:43 Urgent Care Dennis [facility] Office Building One 1.2.840.114 350.1.13.10 4.2.7.2.686 [id number] 2020-11-10 19:00:00 2020-11-10 19:00:00 Outpatient R [facility] [id number] [facility] 2020-10-31 18:52:00 2020-10-31 22:15:00 Emergency Kaycee Méndez [facility] 1.2.840.114 350.1.13.10 4.2.7.2.686 [id number] 2020-10-31 19:00:00 2020-10-31 19:00:00 Outpatient CARI TUTTLE [facility] [id number] [facility] 2020-10-31 00:00:00 2020-10-31 00:00:00 Orders Only Doctor Unassigned, [place] [facility] 1.2.840.114 350.1.13.10 4.2.7.2.686 [id number] 2020-10-20 14:02:00 2020-10-20 17:13:00 Emergency Dev Kaycee Su [facility] 1.2.840.114 350.1.13.10 4.2.7.2.686 [id number] 2020-10-18 00:00:00 2020-10-18 00:00:00 Patient Secure Msg [facility] 1.2.840.114 350.1.13.10 4.2.7.2.686 [id number] [facility] 2020-10-14 10:00:00 2020-10-14 23:59:00 Hospital Encounter Prasanna Vargas [facility] 1.2.840.114 350.1.13.10 4.2.7.2.686 [id number] 2020-10-14 13:30:00 2020-10-14 13:30:00 Outpatient CELINA STONE [facility] [id number] [facility] 2020-10-11 00:00:00 2020-10-11 00:00:00 Patient Secure Msg Prasanna Vargas [facility] PROFESSIO NAL BUILDING 1.2.840.114 350.1.13.10 4.2.7.2.686 [id number] [facility] 2020-10-11 00:00:00 2020-10-11 00:00:00 Patient Secure Msg Prasanna Vargas [facility] BUILDING 1.2.840.114 350.1.13.10 4.2.7.2.686 [id number] [facility] 2020-10-09 12:00:00 2020-10-09 15:57:00 Emergency Anna Kim [facility] 1.2.840.114 350.1.13.10 4.2.7.2.686 [id number] 2020-10-07 00:00:00 2020-10-07 00:00:00 Patient Secure Msg Prasanna Vargas [facility] BUILDING 1.2.840.114 350.1.13.10 4.2.7.2.686 [id number] [facility] 2020-10-07 00:00:00 2020-10-07 00:00:00 Patient Secure Msg Prasanna Vargas [facility] BUILDING 1.2.840.114 350.1.13.10 4.2.7.2.686 [id number] [facility] 2020-10-07 00:00:00 2020-10-07 00:00:00 Patient Secure Msg Prasanna Vargas [facility] BUILDING 1.2.840.114 350.1.13.10 4.2.7.2.686 [id number] [facility] 2020-10-07 00:00:00 2020-10-07 00:00:00 Patient Secure Msg Prasanna Vargas [facility] BUILDING 1.2.840.114 350.1.13.10 4.2.7.2.686 [id number] [facility] 2020-10-07 00:00:00 2020-10-07 00:00:00 Patient Secure Msg Prasanna Vargas [facility] BUILDING 1.2.840.114 350.1.13.10 4.2.7.2.686 [id number] [facility] 2020-10-07 00:00:00 2020-10-07 00:00:00 Patient Secure Msg Prasanna Vargas [facility] BUILDING 1.2.840.114 350.1.13.10 4.2.7.2.686 [id number] [facility] 2020-10-07 00:00:00 2020-10-07 00:00:00 Patient Secure Msg Prasanna Vargas [facility] BUILDING 1.2.840.114 350.1.13.10 4.2.7.2.686 [id number] [facility] 2020-10-06 08:53:00 2020-10-06 09:46:44 Office Visit Prasanna Vargas [facility] 1.2.840.114 350.1.13.10 4.2.7.2.686 [id number] 2020-10-06 09:30:00 2020-10-06 09:30:00 Outpatient PRASANNA LOOMIS [facility] [id number] [facility] 2020-10-04 14:00:00 2020-10-04 14:00:00 Outpatient CELINA STONE [facility] [id number] [facility] 2020-09-30 10:30:00 2020-09-30 10:30:00 Outpatient CELINA STONE [facility] [id number] [facility] 2020-09-29 13:45:00 2020-09-29 13:45:00 Outpatient PREET KRISHNA [facility] [id number] [facility] 2020-09-06 15:30:00 2020-09-06 15:30:00 Outpatient PRASANNA LOOMIS [facility] [id number] [facility] 2020-09-05 00:00:00 2020-09-05 00:00:00 Patient Secure Prasanna Kang [facility] 1.2.840.114 350.1.13.10 4.2.7.2.686 [id number] [facility] 2020-09-02 15:40:00 2020-09-02 15:40:00 Outpatient DARRION QUIROZ HOWARD [facility] [id number] [facility] 2020-08-31 10:30:00 2020-08-31 10:30:00 Outpatient RAD MATAMOROS [facility] [id number] [facility] 2020-08-31 00:00:00 2020-08-31 00:00:00 Patient Secure Prasanna Kang [facility] 1.2.840.114 350.1.13.10 4.2.7.2.686 [id number] [facility] 2020-08-18 09:30:00 2020-08-18 09:30:00 Outpatient PRASANNA LOOMIS [facility] [id number] [facility] 2020-08-11 13:30:00 2020-08-11 13:30:00 Outpatient PRASANNA LOOMIS [facility] [id number] [facility] 2020-08-04 14:00:00 2020-08-04 14:00:00 Outpatient EDER RENEE [facility] [id number] [facility] 2020-07-28 10:30:00 2020-07-28 10:30:00 Outpatient RAD MATAMOROS [facility] [id number] [facility] 2020-06-30 16:15:00 2020-06-30 16:15:00 Outpatient CLAUDETTE CEDILLO [facility] [id number] [facility] 2020-06-17 15:00:00 2020-06-17 15:00:00 Outpatient DARRION QUIROZ [facility] [id number] [facility] 2020-06-16 15:30:00 2020-06-16 15:30:00 Outpatient R SERRARAD GRACIA [facility] [id number] [facility] 2020-06-09 12:30:00 2020-06-09 12:30:00 Outpatient R NI DISLA [facility] [id number] [facility] 2020-06-08 08:00:00 2020-06-08 08:00:00 Outpatient R NI DISLA [facility] [id number] [facility] 2020-06-02 09:00:00 2020-06-02 09:00:00 Outpatient R REENA SERRATANA [facility] [id number] [facility] 2020-05-28 10:00:00 2020-05-28 10:00:00 Outpatient R CARI KAUR [facility] [id number] [facility] 2020-05-26 00:00:00 2020-05-26 00:00:00 Patient Secure Msg Claudette Evans [facility] BUILDING ONE 1.2.840.114 350.1.13.10 4.2.7.2.686 [id number] [facility] 2020-05-24 10:00:00 2020-05-24 10:00:00 Outpatient R NI DISLA [facility] [id number] [facility] 2020-05-24 00:00:00 2020-05-24 00:00:00 Patient Secure Msg Doctor Unassigned, [place] [facility] BUILDING 1.2.840.114 350.1.13.10 4.2.7.2.686 [id number] [facility] 2020-05-19 16:30:00 2020-05-19 16:30:00 Outpatient R JACK OSITO [facility] [id number] [facility] 2020-05-17 13:00:00 2020-05-17 13:00:00 Outpatient DARRION QUIROZ [facility] [id number] [facility] 2020-05-16 16:00:00 2020-05-16 16:00:00 Outpatient Farzana CRISTINA CARMELINARICO [facility] [id number] [facility] 2020-05-09 00:00:00 2020-05-09 00:00:00 Patient Secure Msg Carmelina Evanstainabonnie [facility] ONE .840.114 350.1.13.10 4.2.7.2.686 [id number] [facility] 2020-05-08 10:24:00 2020-05-08 13:03:00 Emergency X AN GARVINALA [facility] [id number] [facility] 2020-05-03 15:00:00 2020-05-03 15:00:00 Outpatient R CRISTINACARMELINABONNIE [facility] [id number] [facility] 2020-04-30 11:14:00 2020-05-01 15:50:00 Outpatient X RODRIGUEZ HOFF [facility] [id number] [facility] 2020-04-30 10:20:00 2020-04-30 10:20:00 Outpatient R ROSALES SHAY [facility] [id number] [facility] 2020-04-30 10:15:00 2020-04-30 10:15:00 Outpatient R ROSALES SHAY [facility] [id number] [facility] 2020-04-29 00:00:00 2020-04-29 00:00:00 Patient Secure Osito Rodrigues [facility] .840.114 350.1.13.10 4.2.7.2.686 [id number] [facility] [id number] [facility] 2020-04-28 14:00:00 2020-04-28 14:00:00 Outpatient OSITO AMARO [facility] [id number] [facility] 2020-04-25 16:15:00 2020-04-25 16:15:00 Outpatient R CRISTINA CARMELINARICO [facility] [id number] [facility] 2020-04-22 00:00:00 2020-04-22 00:00:00 [facility] 1.2.840.114 350.1.13.10 4.2.7.2.686 [id number] [facility] 2020-04-18 10:00:00 2020-04-18 10:00:00 Outpatient OSITO AMARO [facility] [id number] [facility] 2020-04-15 10:30:00 2020-04-15 10:30:00 Outpatient RAD MATAMOROS [facility] [id number] [facility] 2020-04-12 13:38:00 2020-04-13 16:25:00 Outpatient MAR[facility]CRUZ [facility] [id number] [facility] 2020-03-17 16:15:00 2020-03-17 16:15:00 Outpatient TETO BRANTLEY [facility] [id number] [facility] 2020-03-04 00:00:00 2020-03-04 00:00:00 Osito Barnes [facility] 1.2.840.114 350.1.13.10 4.2.7.2.686 [id number] 2020-02-25 16:00:00 2020-02-25 16:00:00 Outpatient OSITO AMARO [facility] [id number] [facility] 2020 14:00:00 2020 14:00:00 Out[facility] [id number] [facility] 2020-02-08 10:30:00 2020-02-08 10:30:00 Outpatient R PRASANNA VARGAS [facility] [id number] [facility] 2020-02-05 00:00:00 2020-02-05 00:00:00 Patient Secure Msg Prasanna Vargas [facility] [id number] [facility] 2020-02-04 13:30:00 2020-02-04 13:30:00 Outpatient R JACK, OSITO [facility] [id number] [facility] 2020-01-23 10:15:00 2020-01-23 10:15:00 Outpatient R [facility] [id number] [facility] 2020-01-21 13:00:00 2020-01-21 13:00:00 Outpatient R JACK, OSITO [facility] [id number] [facility] 2020-01-14 16:00:00 2020-01-14 16:00:00 Outpatient R JACK OSITO [facility] [id number] [facility] 2020-01-05 13:45:00 2020-01-05 13:45:00 Outpatient R PRASANNA VARGAS [facility] [id number] [facility] 2020-01-05 00:00:00 2020-01-05 00:00:00 Patient Secure Prasanna Kang [facility] 1.2.840.114 350.1.13.10 4.2.7.2.686 [id number] 134 [id number] [facility] 2019-12-03 10:30:00 2019-12-03 10:30:00 Outpatient R CRICKET TAYLOR [facility] [id number] [facility] 2019-11-27 11:00:00 2019-11-27 11:00:00 Outpatient R TETO CARNES [facility] [id number] [facility] 2019-11-26 00:00:00 2019-11-26 00:00:00 Patient Secure Msg Doctor Unassigned, [place] [facility] 1.2.840.114 350.1.13.10 4.2.7.2.686 [id number] [facility] 2019-11-25 08:00:00 2019-11-25 08:00:00 Outpatient TETO BRANTLEY [facility] [id number] [facility] 2019-11-23 00:00:00 2019-11-23 00:00:00 Patient Secure Msg Doctor Unassigned, [place] [facility] 1.2.840.114 350.1.13.10 4.2.7.2.686 [id number] 134 [id number] [facility] 2019-11-18 10:00:00 2019-11-18 10:00:00 Outpatient TETO BRANTLEY [facility] [id number] [facility] 2019-11-17 00:00:00 2019-11-17 00:00:00 Patient Secure Msg Doctor Unassigned, [place] [facility] 1.2.840.114 350.1.13.10 4.2.7.2.686 [id number] 134 [id number] [facility] 2019-11-13 00:00:2019-11-13 00:00:00 Patient Secure Msg Prasanna Vargas Jm [facility] 1.2.840.114 350.1.13.10 4.2.7.2.686 [id number] 134 [id number] [facility] 2019-09-02 11:00:00 2019-09-02 11:00:00 Outpatient CRICKET FRYE [facility] [id number] [facility] 2019-08-14 10:15:00 2019-08-14 10:15:00 Outpatient TETO BRANTLEY [facility] [id number] [facility] 2019-08-13 11:00:00 2019-08-13 11:00:00 Outpatient R CRICKET TAYLOR [facility] [id number] [facility] 2019-08-12 09:00:00 2019-08-12 09:00:00 Outpatient R [facility] [id number] [facility] 2019-07-20 16:06:00 2019-07-20 16:06:00 Outpatient P PRASANNA VARGAS [facility] [id number] [facility] 2019-07-20 08:15:00 2019-07-20 08:15:00 Outpatient R CRICKET TAYLOR [facility] [id number] [facility] 2019-07-13 08:00:00 2019-07-13 08:00:00 Outpatient R CRICKET TAYLOR [facility] [id number] [facility] 2019-07-12 13:39:00 2019-07-12 13:39:00 Outpatient P PRASANNA VARGAS [facility] [id number] [facility] 2019-07-06 13:00:00 2019-07-06 13:00:00 Outpatient [facility] [id number] [facility] 2019-06-13 10:40:46 2019-06-13 12:35:00 Emergency X SARAHI AVILA [facility] [id number] [facility] 2019-05-13 23:07:00 2019-05-14 09:15:00 Outpatient P PRASANNA VARGAS [facility] [id number] [facility] Results Test Description Test Time Test Comments Results Result Co mments Source [facility] 16:39:24* Test Item Value Reference Range Interpretation Comme nts LIPASE (test code = 7533459343) 40 U/L 0-220 Lab Interpretation (test cod e = 50483-6) [facility] W [id number] 16:27:28EXAM: CT ABDOMEN PELVIS W CONTRAST HISTORY: [...] hypodensity isseen within the right gluteal soft tissue.[facility] CBC WITH [id number] 16:14:18* Test Item Value Reference Range Interpretation Comme nts WBC (test code = 6690-2) 6.32 See_Comment [Automated KIWATCH] The system which generated this result transmitted reference range: 4.30 - 11.10 10*3/?L. The reference range was not used to interpret this result as normal/abnormal. RBC (test code = 789-8) 4.61 See_Comment [Automated KIWATCH] The system which generated this result transmitted [...] 34.1 g/dL 31.6-35.1 RDW-SD (test code = 82085-2) 42.0 fL 39.0-49.9 RDW-CV (test code = 788-0) 13.0 % 12.0-15.5 PLT (test code = 777-3) 369 See_Comment H [Automated [employer] ge] The system which generated this result transmitted reference range: 166 - 358 10*3/?L. The reference range was not used to interpret this result as normal/abnormal. MPV (test code = 06487-9) 9.9 fL 9.5-12.9 NRBC/100 WBC (test code = 2779986607) 0.0 See_Comment [Automated FolderBoy ssage] The system which generated this result transmitted reference range: 0.0 - 10.0 /100 WBCs. The reference range was not used to interpret this result as normal/abnormal. NRBC x10^3 (test code = 5710885811) See_Comment [Automated [employer] ge] The system which generated this result transmitted reference range: 10*3/?L. The reference range was not used to interpret this result as normal/abnormal. GRAN MAT (NEUT) % (test code = 770-8) 64.8 % IMM GRAN % (test code = 6383002111) 0.50 % LYMPH % (test code = 736-9) 25.3 % MONO % (test code = 5905-5) 4.1 % EOS % (test code = 713-8) 4.7 % BASO % (test code = 706-2) 0.6 % GRAN MAT x10^3(ANC) (test code = 8401886373) 4.09 10*3/uL 1.88-7.09 IMM GRAN x10^3 (test code = 4201732298) 0.03 10*3/uL 0.00-0.06 LYMPH x10^3 (test code = 731-0) 1.60 10*3/uL 1.32-3.29 MONO x10^3 (test code = 742-7) 0.26 10*3/uL 0.33-0.92 L EOS x10^3 (test code = 711-2) 0.30 10*3/uL 0.03-0.39 BASO x10^3 (test code = 704-7) 0.04 10*3/uL 0.01-0.07 Lab Interpretation (test code = 24546-2) [facility] [id number] 15:31:00* Test Item Value Reference Range Interpretation Comme nts POCT PREG (test code = 1605) Negative On board controls acceptable with C Line (test code = 3574) Yes POCT PREG LOT # (test code = 3575) [id number] POCT PREG TEST DATE ( test code = 3576) 2024-07-21 Lab Interpretation (test cod e = 82419-2) Normal [facility] WITH [id number] 04:28:47* Test Item Value Reference Range Interpretation Comme nts WBC (test code = 6690-2) 5.45 See_Comment [Automated [employer] ge] The system which generated this result transmitted reference range: 4.30 - 11.10 10*3/?L. The reference range was not used to interpret this result as normal/abnormal. RBC (test code = 789-8) 4.59 See_Comment [Automated [employer] ge] The system which generated this result [...] 34.0 g/dL 31.6-35.1 RDW-SD (test code = 41694-5) 40.3 fL 39.0-49.9 RDW-CV (test code = 788-0) 13.1 % 12.0-15.5 PLT (test code = 777-3) 307 See_Comment [Automated messa ge] The system which generated this result transmitted reference range: 166 - 358 10*3/?L. The reference range was not used to interpret this result as normal/abnormal. MPV (test code = 51965-6) 11.0 fL 9.5-12.9 NRBC/100 WBC (test code = 0934364401) 0.0 See_Comment [Automated me ssage] The system which generated this result transmitted reference range: 0.0 - 10.0 /100 WBCs. The reference range was not used to interpret this result as normal/abnormal. NRBC x10^3 (test code = 3856937191) See_Comment [Automated messa ge] The system which generated this result transmitted reference range: 10*3/?L. The reference range was not used to interpret this result as normal/abnormal. GRAN MAT (NEUT) % (test code = 770-8) 52.0 % IMM GRAN % (test code = 7175165244) 0.20 % LYMPH % (test code = 736-9) 38.0 % MONO % (test code = 5905-5) 4.6 % EOS % (test code = 713-8) 4.6 % BASO % (test code = 706-2) 0.6 % GRAN MAT x10^3(ANC) (test code = 0071731281) 2.84 10*3/uL 1.88-7.09 IMM GRAN x10^3 (test code = 3118975615) 0.00-0.06 LYMPH x10^3 (test code = 731-0) 2.07 10*3/uL 1.32-3.29 MONO x10^3 (test code = 742-7) 0.25 10*3/uL 0.33-0.92 L EOS x10^3 (test code = 711-2) 0.25 10*3/uL 0.03-0.39 BASO x10^3 (test code = 704-7) 0.03 10*3/uL 0.01-0.07 Lab Interpretation (test code = 56709-9) [facility] MET[facility]OLIC PANEL (91912)2023-01-12 04:12:43* Test Item Value Reference Range Interpretation Comme nts NA (test code = 5732828420) 137 mmol/L 135-145 K (test code = 9609800726) 3.4 mmol/L 3.5-5.0 L CL (test code = 4710601485) 104 mmol/L 98-108 CO2 TOTAL (test code = 6178739882) 24 mmol/L 23-31 AGAP (test code = 8088445068) 9 2-16 BUN (test code = 3750744607) 2 mg/dL 7-23 L GLUCOSE (test code = 7371015172) 92 mg/dL 70-110 CREATININE (test code = 6862064539) 0.80 mg/dL 0.50-1.04 TOTAL BILI (test code = 6182533020) 0.4 mg/dL 0.1-1.1 CALCIUM (test code = 4615230942) 8.4 mg/dL 8.6-10.6 L T PROTEIN (test code = 4348066808) 6.3 g/dL 6.3-8.2 ALBUMIN (test code = 1888222142) 3.7 g/dL 3.5-5.0 ALK PHOS (test code = 1748561544) 87 U/L 34-122 ALTv (test code = 1742-6) 27 U/L 5-35 AST(SGOT) (test code = 2761586526) 33 U/L 13-40 eGFR (test code = 5474018529) 86.0 mL/min/1.73m2 WESLEY (test code = WESLEY) [...] imaging tests). Lab Interpretation (test code = 36183-4) Abnormal [facility]. METABOLIC PANEL (92281)2023-01-12 04:12:43* Test Item Value Reference Range Interpretation Comme nts NA (test code = 4850558493) 137 mmol/L 135-145 K (test code = 7915324836) 3.4 mmol/L 3.5-5.0 L CL (test code = 8496931650) 104 mmol/L 98-108 CO2 TOTAL (test code = 5784962939) 24 mmol/L 23-31 AGAP (test code = 5761984909) 9 2-16 BUN (test code = 4574136141) 2 mg/dL 7-23 L GLUCOSE (test code = 4661822095) 92 mg/dL 70-110 CREATININE (test code = 9965902108) 0.80 mg/dL 0.50-1.04 TOTAL BILI (test code = 4624693472) 0.4 mg/dL 0.1-1.1 CALCIUM (test code = 4005809128) 8.4 mg/dL 8.6-10.6 L T PROTEIN (test code = 0188903076) 6.3 g/dL 6.3-8.2 ALBUMIN (test code = 9846777278) 3.7 g/dL 3.5-5.0 ALK PHOS (test code = 0221879609) 87 U/L 34-122 ALTv (test code = 1742-6) 27 U/L 5-35 AST(SGOT) (test code = 1668542966) 33 U/L 13-40 eGFR (test code = 9919160851) 86.0 mL/min/1.73m2 WESLEY (test code = WESLEY) [...] imaging tests). Lab Interpretation (test code = 42853-4) [facility] 04:07:04 BETA HCG<2.39Non- female and male patients: <5 mIU/mL01/11/2023 11:07 PM [facility] Gestational Age ?Range (mIU/mL) 1-10 ?Weeks ?53-03722388-15 Weeks ?04408-69531523-86 Weeks ?4216-28412859-32 Weeks ?1531-784697 Biotin has been reported to cause a negative bias, interpret results relative to patient's use of biotin. Gestational Age ?Range (mIU/mL) 1-10 ?Weeks ?49-51474300-39 Weeks ?53141-72450247-34 Weeks ?9071-26387617-71 Weeks?1531-087433 Biotin has been reported to cause a negative bias, interpret results relative to patient's use of biotin. Gestational Age ?Range (mIU/mL) 1-10 ?Weeks ?75-22177039-05 Weeks ?57582-50245550-60 Weeks ?3953-46201842-70 Weeks ?1531-350126 Biotin has been reported to cause a negative bias, interpretresults relative to patient's use of biotin.[facility]2023-01-12 04:07:04BETA HCG<2.39Non- female and male patients: <5 mIU/mL01/11/2023 11:07 PM [facility] Gestational Age ?Range (mIU/mL) 1-10 ?Weeks ?72-61852250-34 Weeks ?54654-93160850-49 Weeks ?3042-54589780-90 Weeks ?1531-950419 Biotin has been reported to cause a negative bias, interpret results relative topatient's use of biotin. Gestational Age ?Range (mIU/mL) 1-10 ?Weeks ?70-57433691-55 Weeks ?66283-28526072-21 Weeks ?0020-86257651-13 Weeks?1531-277232 Biotin has been reported to cause a negative bias, interpret results relative to patient's use of biotin. Gestational Age ?Range (mIU/mL) 1-10 ?Weeks ?77-45181067-31 Weeks ?10386-76733373-17 Weeks ?4173-17707638-29 Weeks ?1531-973731 Biotin has been reported to cause a negative bias, interpretresults relative to patient's use of biotin.[facility] 2023-01-12 03:22:58* Test Item Value Reference Range Interpretation Comme nts LIPASE (test code = 4191607749) 41 U/L 0-220 Lab Interpretation (test cod e = 50546-7) Normal [facility]2023-09-02 03:22:58* Test Item Value Reference Range Interpretation Comme nts LIPASE (test code = 1606950863) 41 U/L 0-220 Lab Interpretation (test cod e = 32209-0) Normal [facility] [id number] 03:02:00* Test Item Value Reference Range Interpretation Comme nts POCT PREG (test code = 1605) Negative On board controls acceptable with C Line (test code = 3574) Yes POCT PREG LOT # (test code = 3575) [id number] POCT PREG TEST DATE ( test code = 3576) 05/15/2024 Lab Interpretation (test cod e = 08846-4) Normal [facility] [id number] 03:02:00* Test Item Value Reference Range Interpretation Comme nts POCT PREG (test code = 1605) Negative On board controls acceptable with C Line (test code = 3574) Yes POCT PREG LOT # (test code = 3575) [id number] POCT PREG TEST DATE ( test code = 3576) 05/15/2024 Lab Interpretation (test cod e = 72736-5) [facility], [id number] 00:23:34* Test Item Value Reference Range Interpretation Comme nts PREG SERUM (test code = 7427060589) Negative WESLEY (test code = WESLEY) Less than 10 IU/L. ?If low titer or ectopic is suspected, resubmit specimen in 48-72 hours. [facility]. METABOLIC PANEL (99840)2022-07-31 23:58:12* Test Item Value Reference Range Interpretation Comme nts NA (test code = 9648692649) 140 mmol/L 135-145 K (test code = 8234354881) 3.6 mmol/L 3.5-5.0 CL (test code = 0814561194) 106 mmol/L 98-108 CO2 TOTAL (test code = 7972874618) 21 mmol/L 23-31 L AGAP (test code = 4224255350) 13 2-16 BUN (test code = 2134891046) 8 mg/dL 7-23 GLUCOSE (test code = 4302857231) 90 mg/dL 70-110 CREATININE (test code = 3619165220) 0.90 mg/dL 0.50-1.04 TOTAL BILI (test code = 0392564534) 0.5 mg/dL 0.1-1.1 CALCIUM (test code = 3415949071) 9.0 mg/dL 8.6-10.6 T PROTEIN (test code = 9285154805) 7.8 g/dL 6.3-8.2 ALBUMIN (test code = 0782914440) 4.6 g/dL 3.5-5.0 ALK PHOS (test code = 9737683453) 63 U/L 34-122 ALTv (test code = 1742-6) 23 U/L 5-35 AST(SGOT) (test code = 1475778474) 27 U/L 13-40 eGFR (test code = 6363318601) 75.1 mL/min/1.73m2 WESLEY (test code = WESLEY) [...] imaging tests). Lab Interpretation (test code = 69564-0) [facility]normal [facility]23-[facility]-21 23:57:32* Test Item Value Reference Range Interpretation Comme nts LIPASE (test code = 6441201210) 55 U/L 0-220 Lab Interpretation (test cod e = 09052-5) Normal [facility] WITH [id number] 23:47:31* Test Item Value Reference Range Interpretation Comme nts WBC (test code = 6690-2) 5.64 See_Comment [Automated KIWATCH] The system which generated this result transmitted reference range: 4.30 - 11.10 10*3/?L. The reference range was not used to interpret this result as normal/abnormal. RBC (test code = 789-8) 4.51 See_Comment [Automated KIWATCH] The system which generated this result transmitted [...] 32.6 g/dL 31.6-35.1 RDW-SD (test code = 40151-7) 42.5 fL 39.0-49.9 RDW-CV (test code = 788-0) 13.0 % 12.0-15.5 PLT (test code = 777-3) 339 See_Comment [Automated messa ge] The system which generated this result transmitted reference range: 166 - 358 10*3/?L. The reference range was not used to interpret this result as normal/abnormal. MPV (test code = 34947-8) 9.4 fL 9.5-12.9 L NRBC/100 WBC (test code = 2219714205) 0.0 See_Comment [Automated [employer] ssage] The system which generated this result transmitted reference range: 0.0 - 10.0 /100 WBCs. The reference range was not used to interpret this result as normal/abnormal. NRBC x10^3 (test code = 6639601043) See_Comment [Automated [employer]] The system which generated this result transmitted reference range: 10*3/?L. The reference range was not used to interpret this result as normal/abnormal. GRAN MAT (NEUT) % (test code = 770-8) 51.2 % IMM GRAN % (test code = 4046967116) 0.20 % LYMPH % (test code = 736-9) 36.5 % MONO % (test code = 5905-5) 5.7 % EOS % (test code = 713-8) 5.9 % BASO % (test code = 706-2) 0.5 % GRAN MAT x10^3(ANC) (test code = 2844941004) 2.89 10*3/uL 1.88-7.09 IMM GRAN x10^3 (test code = 6638381997) 0.00-0.06 LYMPH x10^3 (test code = 731-0) 2.06 10*3/uL 1.32-3.29 MONO x10^3 (test code = 742-7) 0.32 10*3/uL 0.33-0.92 L EOS x10^3 (test code = 711-2) 0.33 10*3/uL 0.03-0.39 BASO x10^3 (test code = 704-7) 0.03 10*3/uL 0.01-0.07 Lab Interpretation (test code = 41423-2) [facility]normal [facility] [id number] 16:14:38* Test Item Value Reference Range Interpretation Comme nts POCT Molecular Strep (test c ode = 08112-1) Negative Negative Lab Interpretation (test cod e = 40815-9) Normal [facility]. METABOLIC PANEL (08792)2022-05-05 19:35:37* Test Item Value Reference Range Interpretation Comme nts NA (test code = 3547680352) 139 mmol/L 135-145 K (test code = 7355517421) 4.4 mmol/L 3.5-5.0 CL (test code = 9181731816) 104 mmol/L 98-108 CO2 TOTAL (test code = 2782947432) 22 mmol/L 23-31 L AGAP (test code = 7223569877) 2-16 BUN (test code = 6804157857) 11 mg/dL 7-23 GLUCOSE (test code = 2312834137) 95 mg/dL 70-110 CREATININE (test code = 3068815762) 0.71 mg/dL 0.50-1.04 TOTAL BILI (test code = 2250863741) 0.4 mg/dL 0.1-1.1 CALCIUM (test code = 3026500630) 9.1 mg/dL 8.6-10.6 T PROTEIN (test code = 5496100310) 7.9 g/dL 6.3-8.2 ALBUMIN (test code = 7364070255) 4.7 g/dL 3.5-5.0 ALK PHOS (test code = 9313677641) 114 U/L 34-122 ALTv (test code = 1742-6) 21 U/L 5-35 AST(SGOT) (test code = 5326869912) 21 U/L 13-40 eGFR (test code = 9050838222) mL/min/1.73m2 WESLEY (test code = WESLEY) Association [...] imaging tests). Lab Interpretation (test code = 65552-4) Abnormal [facility] WITH [id number] 19:25:37* Test Item Value Reference Range Interpretation Comme nts WBC (test code = 6690-2) See_Comment [Automated KIWATCH] The system which generated this result transmitted reference range: 4.30 - 11.10 10*3/?L. The reference range was not used to interpret this result as normal/abnormal. RBC (test code = 789-8) See_Comment [Automated KIWATCH] The system which generated this result transmitted [...] 32.9 g/dL 31.6-35.1 RDW-SD (test code = 75123-9) 41.7 fL 39.0-49.9 RDW-CV (test code = 788-0) 12.7 % 12.0-15.5 PLT (test code = 777-3) See_Comment H [Automated [employer]] The system which generated this result transmitted reference range: 166 - 358 10*3/?L. The reference range was not used to interpret this result as normal/abnormal. MPV (test code = 37709-9) 8.8 fL 9.5-12.9 L NRBC/100 WBC (test code = 0744258059) See_Comment [Automated [employer] ssage] The system which generated this result transmitted reference range: 0.0 - 10.0 /100 WBCs. The reference range was not used to interpret this result as normal/abnormal. NRBC x10^3 (test code = 6025178023) See_Comment [Automated [employer]] The system which generated this result transmitted reference range: 10*3/?L. The reference range was not used to interpret this result as normal/abnormal. GRAN MAT (NEUT) % (test code = 770-8) 56.1 % IMM GRAN % (test code = 5615514364) 0.40 % LYMPH % (test code = 736-9) 29.9 % MONO % (test code = 5905-5) 5.4 % EOS % (test code = 713-8) 7.8 % BASO % (test code = 706-2) 0.4 % GRAN MAT x10^3(ANC) (test code = 1825507013) 3.75 10*3/uL 1.88-7.09 IMM GRAN x10^3 (test code = 4655144038) 0.03 10*3/uL 0.00-0.06 LYMPH x10^3 (test code = 731-0) 2.00 10*3/uL 1.32-3.29 MONO x10^3 (test code = 742-7) 0.36 10*3/uL 0.33-0.92 EOS x10^3 (test code = 711-2) 0.52 10*3/uL 0.03-0.39 H BASO x10^3 (test code = 704-7) 0.03 10*3/uL 0.01-0.07 Lab Interpretation (test code = 05947-8) [facility]normal [facility] [id number] 19:00:00* Test Item Value Reference Range Interpretation Comme nts POCT PREG (test code = 1605) negative On board controls acceptable with C Line (test code = 3574) present POCT PREG LOT # (test code = 3575) [id number] POCT PREG TEST DATE ( test code = 3576) 08-11-2023 Lab Interpretation (test cod e = 34750-4) Normal [facility] WITH [id number] 15:21:11* Test Item Value Reference Range Interpretation Comme nts WBC (test code = 6690-2) See_Comment [Automated [employer]] The system which generated this result transmitted reference range: 4.30 - 11.10 10*3/?L. The reference range was not used to interpret this result as normal/abnormal. RBC (test code = 789-8) See_Comment [Automated [employer]] The system which generated this result [...] 33.0 g/dL 31.6-35.1 RDW-SD (test code = 64158-6) 42.6 fL 39.0-49.9 RDW-CV (test code = 788-0) 12.9 % 12.0-15.5 PLT (test code = 777-3) See_Comment H [Automated messa ge] The system which generated this result transmitted reference range: 166 - 358 10*3/?L. The reference range was not used to interpret this result as normal/abnormal. MPV (test code = 48012-2) 9.1 fL 9.5-12.9 L NRBC/100 WBC (test code = 6615124340) See_Comment [Automated [employer] ssage] The system which generated this result transmitted reference range: 0.0 - 10.0 /100 WBCs. The reference range was not used to interpret this result as normal/abnormal. NRBC x10^3 (test code = 3038607477) See_Comment [Automated [employer]] The system which generated this result transmitted reference range: 10*3/?L. The reference range was not used to interpret this result as normal/abnormal. GRAN MAT (NEUT) % (test code = 770-8) 56.8 % IMM GRAN % (test code = 7982837950) 0.30 % LYMPH % (test code = 736-9) 29.5 % MONO % (test code = 5905-5) 4.3 % EOS % (test code = 713-8) 8.3 % BASO % (test code = 706-2) 0.8 % GRAN MAT x10^3(ANC) (test code = 8827220735) 3.57 10*3/uL 1.88-7.09 IMM GRAN x10^3 (test code = 5728662366) 0.00-0.06 LYMPH x10^3 (test code = 731-0) 1.85 10*3/uL 1.32-3.29 MONO x10^3 (test code = 742-7) 0.27 10*3/uL 0.33-0.92 L EOS x10^3 (test code = 711-2) 0.52 10*3/uL 0.03-0.39 H BASO x10^3 (test code = 704-7) 0.05 10*3/uL 0.01-0.07 Lab Interpretation (test code = 32717-2) [facility]OLIC PANEL (90613)2022-04-26 15:12:13* Test Item Value Reference Range Interpretation Comme nts NA (test code = 0598269030) 141 mmol/L 135-145 K (test code = 9126872843) 3.4 mmol/L 3.5-5.0 L CL (test code = 1890329235) 104 mmol/L 98-108 CO2 TOTAL (test code = 5632721717) 23 mmol/L 23-31 AGAP (test code = 3584634687) 2-16 BUN (test code = 8744951984) 9 mg/dL 7-23 GLUCOSE (test code = 4656769640) 101 mg/dL 70-110 CREATININE (test code = 9535271029) 0.82 mg/dL 0.50-1.04 TOTAL BILI (test code = 9228190490) 0.7 mg/dL 0.1-1.1 CALCIUM (test code = 2171124613) 9.3 mg/dL 8.6-10.6 T PROTEIN (test code = 4882081317) 8.1 g/dL 6.3-8.2 ALBUMIN (test code = 7168671573) 4.7 g/dL 3.5-5.0 ALK PHOS (test code = 6437833022) 108 U/L 34-122 ALTv (test code = 1742-6) 24 U/L 5-35 AST(SGOT) (test code = 1312190074) 49 U/L 13-40 H eGFR (test code = 9325008686) mL/min/1.73m2 WESLEY (test code = WESLEY) Association [...] imaging tests). Lab Interpretation (test code = 94334-6) Abnormal [facility] [id number] 14:45:00* Test Item Value Reference Range Interpretation Comme nts POCT PREG (test code = 1605) negative On board controls acceptable with C Line (test code = 3574) present POCT PREG LOT # (test code = 3575) [id number] POCT PREG TEST DATE ( test code = 3576) 08/11/2023 Lab Interpretation (test cod e = 07146-6) Normal [facility] [id number] 01:22:00* Test Item Value Reference Range Interpretation Comme nts POCT PREG (test code = 1605) Negative On board controls acceptable with C Line (test code = 3574) Present POCT PREG LOT # (test code = 3575) [id number] POCT PREG TEST DATE ( test code = 3576) 08-11-2023 Lab Interpretation (test cod e = 28474-5) Normal [facility] METABOLIC PANEL (NA, K, CL, CO2, GLUCOSE, BUN, CREATININE, CA)2022-04-07 23:01:10* Test Item Value Reference Range Interpretation Comme nts NA (test code = 7269733827) 138 mmol/L 135-145 K (test code = 6939871074) 4.3 mmol/L 3.5-5.0 CL (test code = 5212986413) 107 mmol/L 98-108 CO2 TOTAL (test code = 9982401319) 20 mmol/L 23-31 L AGAP (test code = 7661245201) 2-16 BUN (test code = 7798501105) 9 mg/dL 7-23 GLUCOSE (test code = 6129752612) 204 mg/dL 70-110 H CREATININE (test code = 8155490496) 0.74 mg/dL 0.50-1.04 CALCIUM (test code = 8677482187) 9.1 mg/dL 8.6-10.6 eGFR (test code = 8229667375) mL/min/1.73m2 WESLEY (test code = WESLEY) Association [...] imaging tests). Lab Interpretation (test code = 12246-8) Abnormal [facility] WITH [id number] 22:57:34* Test Item Value Reference Range Interpretation Comme nts WBC (test code = 6690-2) See_Comment [Automated messa ge] The system which generated this result transmitted reference range: 4.30 - 11.10 10*3/?L. The reference range was not used to interpret this result as normal/abnormal. RBC (test code = 789-8) See_Comment [Automated [employer] ge] The system which generated this result [...] 33.5 g/dL 31.6-35.1 RDW-SD (test code = 13271-2) 42.9 fL 39.0-49.9 RDW-CV (test code = 788-0) 13.4 % 12.0-15.5 PLT (test code = 777-3) See_Comment H [Automated [employer] ge] The system which generated this result transmitted reference range: 166 - 358 10*3/?L. The reference range was not used to interpret this result as normal/abnormal. MPV (test code = 67879-2) 8.9 fL 9.5-12.9 L NRBC/100 WBC (test code = 5165863121) See_Comment [Automated [employer] ssage] The system which generated this result transmitted reference range: 0.0 - 10.0 /100 WBCs. The reference range was not used to interpret this result as normal/abnormal. NRBC x10^3 (test code = 8175398097) See_Comment [Automated [employer] ge] The system which generated this result transmitted reference range: 10*3/?L. The reference range was not used to interpret this result as normal/abnormal. GRAN MAT (NEUT) % (test code = 770-8) 88.7 % IMM GRAN % (test code = 2592078194) 0.70 % LYMPH % (test code = 736-9) 9.4 % MONO % (test code = 5905-5) 0.9 % EOS % (test code = 713-8) 0.1 % BASO % (test code = 706-2) 0.2 % GRAN MAT x10^3(ANC) (test code = 1590048201) 7.81 10*3/uL 1.88-7.09 H IMM GRAN x10^3 (test code = 0846577943) 0.06 10*3/uL 0.00-0.06 LYMPH x10^3 (test code = 731-0) 0.83 10*3/uL 1.32-3.29 L MONO x10^3 (test code = 742-7) 0.08 10*3/uL 0.33-0.92 L EOS x10^3 (test code = 711-2) 0.03-0.39 L BASO x10^3 (test code = 704-7) 0.01-0.07 Lab Interpretation (test code = 80418-4) Abnormal [facility] [id number] 14:07:00* Test Item Value Reference Range Interpretation Comme nts POCT PREG (test code = 1605) negative On board controls acceptable with C Line (test code = 3574) present POCT PREG LOT # (test code = 3575) [id number] POCT PREG TEST DATE ( test code = 3576) 08/11/2023 Lab Interpretation (test cod e = 05183-8) Normal [facility] [id number] 13:52:00* Test Item Value Reference Range Interpretation Comme nts POCT PREG (test code = 1605) negative On board controls acceptable with C Line (test code = 3574) present Lab Interpretation (test cod e = 31924-9) Normal [facility] [id number] 14:59:00* Test Item Value Reference Range Interpretation Comme nts POCT PREG (test code = 1605) negative On board controls acceptable with C Line (test code = 3574) yes POCT PREG LOT # (test code = 3575) [id number] POCT PREG TEST DATE ( test code = 3576) 07/11/2023 Lab Interpretation (test cod e = 13511-5) Normal [facility]. METABOLIC PANEL (47092)2022 17:51:43* Test Item Value Reference Range Interpretation Comme nts NA (test code = 8212713655) 139 mmol/L 135-145 K (test code = 7247242549) 4.1 mmol/L 3.5-5 CL (test code = 7255847387) 104 mmol/L 98-108 CO2 TOTAL (test code = 4766070951) 22 mmol/L 23-31 L AGAP (test code = 1326510058) 2-16 BUN (test code = 3919363163) 7 mg/dL 7-23 GLUCOSE (test code = 3545225360) 114 mg/dL 70-110 H CREATININE (test code = 2843198552) 0.69 mg/dL 0.5-1.04 TOTAL BILI (test code = 2933197560) 0.4 mg/dL 0.1-1.1 CALCIUM (test code = 9763469156) 9.7 mg/dL 8.6-10.6 T PROTEIN (test code = 1738014732) 7.2 g/dL 6.3-8.2 ALBUMIN (test code = 9916984611) 4.6 g/dL 3.5-5 ALK PHOS (test code = 4794910983) 65 U/L 34-122 ALTv (test code = 1742-6) 15 U/L 5-35 AST(SGOT) (test code = 8890924529) 19 U/L 13-40 eGFR (test code = 6522459387) mL/min/1.73m2 WESLEY (test code = WESLEY) Association [...] imaging tests). Lab Interpretation (test code = 25236-4) Abnormal [facility] WITH [id number] 17:40:24* Test Item Value Reference Range Interpretation Comme nts WBC (test code = 6690-2) See_Comment [[employer]] The system which generated this result transmitted reference range: 4.30 - 11.10 10*3/?L. The reference range was not used to interpret this result as normal/abnormal. RBC (test code = 789-8) See_Comment [[employer]] The system which generated this result transmitted [...] 33.3 g/dL 31.6-35.1 RDW-SD (test code = 88703-1) 43.1 fL 39-49.9 RDW-CV (test code = 788-0) 13.2 % 12-15.5 PLT (test code = 777-3) See_Comment [[employer]] The system which generated this result transmitted reference range: 166 - 358 10*3/?L. The reference range was not used to interpret this result as normal/abnormal. MPV (test code = 68548-8) 9.5 fL 9.5-12.9 NRBC/100 WBC (test code = 7555760982) See_Comment [Automated me ssage] The system which generated this result transmitted reference range: 0.0 - 10.0 /100 WBCs. The reference range was not used to interpret this result as normal/abnormal. NRBC x10^3 (test code = 1295933719) See_Comment [Automated messa ge] The system which generated this result transmitted reference range: 10*3/?L. The reference range was not used to interpret this result as normal/abnormal. GRAN MAT (NEUT) % (test code = 770-8) 57.8 % IMM GRAN % (test code = 9546910717) 0.20 % LYMPH % (test code = 736-9) 30.8 % MONO % (test code = 5905-5) 5.1 % EOS % (test code = 713-8) 5.6 % BASO % (test code = 706-2) 0.5 % GRAN MAT x10^3(ANC) (test code = 8499370802) 3.61 10*3/uL 1.88-7.09 IMM GRAN x10^3 (test code = 3262726481) 0-0.06 LYMPH x10^3 (test code = 731-0) 1.92 10*3/uL 1.32-3.29 MONO x10^3 (test code = 742-7) 0.32 10*3/uL 0.33-0.92 L EOS x10^3 (test code = 711-2) 0.35 10*3/uL 0.03-0.39 BASO x10^3 (test code = 704-7) 0.03 10*3/uL 0.01-0.07 Lab Interpretation (test code = 80677-3) [id number] 17:27:00* Test Item Value Reference Range Interpretation Comme nts POCT PREG (test code = 1605) negative On board controls acceptable with C Line (test code = 3574) present POCT PREG LOT # (test code = 3575) [id number] POCT PREG TEST DATE ( test code = 3576) Lab Interpretation (test cod e = 80789-1) [facility]22-[facility] 12:45:21* Test Item Value Reference Range Interpretation Comme nts LIPASE (test code = 2772564224) 41 U/L 0-220 Lab Interpretation (test cod e = 68541-5) [facility] [id number] 10:57:00* Test Item Value Reference Range Interpretation Comme nts POCT PREG (test code = 1605) Negative On board controls acceptable with C Line (test code = 3574) Present POCT PREG LOT # (test code = 3575) [id number] POCT PREG TEST DATE ( test code = 357) 03/12/2023 Lab Interpretation (test cod e = 71422-8) [facility] (NA, K, CL, CO2, GLUCOSE, BUN, CREATININE, CA)2022-01-18 10:56:51* Test Item Value Reference Range Interpretation Comme nts NA (test code = 9604265326) 137 mmol/L 135-145 K (test code = 1041163410) 4.6 mmol/L 3.5-5 Slight hemolysis CL (test code = 5100739568) 108 mmol/L 98-108 CO2 TOTAL (test code = 3134178162) 22 mmol/L 23-31 L AGAP (test code = 2655142224) 2-16 BUN (test code = 3531777841) 11 mg/dL 7-23 Slight hemolysis GLUCOSE (test code = 0005973372) 83 mg/dL 70-110 CREATININE (test code = 2994973015) 0.68 mg/dL 0.5-1.04 CALCIUM (test code = 8894012215) 8.8 mg/dL 8.6-10.6 eGFR (test code = 3923777180) mL/min/1.73m2 WESLEY (test code = WESLEY) Association [...] imaging tests). Lab Interpretation (test code = 90402-5) [facility]normal [facility] (93974) (ALB,T.PRO,BILI T,BU/BC,ALT,AST,ALK PHOS)2022-01-18 10:56:51* Test Item Value Reference Range Interpretation Comme nts TOTAL BILI (test code = 6759789114) 0.6 mg/dL 0.1-1.1 BILI UNCON (test code = 5815004751) 0.1 mg/dL 0.1-1.1 BILI CONJ (test code = 6475866509) 0.0 mg/dL 0-0.3 T PROTEIN (test code = 9086009779) 8.6 g/dL 6.3-8.2 H ALBUMIN (test code = 0954221966) 5.1 g/dL 3.5-5 H ALK PHOS (test code = 0088710327) 79 U/L 34-122 ALTv (test code = 1742-6) 117 U/L 5-35 H AST(SGOT) (test code = 6938435854) 163 U/L 13-40 H Lab Interpretation (test cod e = 92570-9) Abnormal [facility], [id number] 10:54:25* Test Item Value Reference Range Interpretation Comme nts PREG SERUM (test code = 1343274154) Negative WESLEY (test code = WESLEY) Less than 10 IU/L. ?If low titer or ectopic is suspected, resubmit specimen in 48-72 hours. [facility] WITH [id number] 10:40:49* Test Item Value Reference Range Interpretation [...] 33.6 g/dL 31.6-35.1 RDW-SD (test code = 68308-1) 45.3 fL 39-49.9 RDW-CV (test code = 788-0) 14.5 % 12-15.5 PLT (test code = 777-3) See_Comment [Automated messa ge] The system which generated this result transmitted reference range: 166 - 358 10*3/?L. The reference range was not used to interpret this result as normal/abnormal. MPV (test code = 57914-3) 9.5 fL 9.5-12.9 NRBC/100 WBC (test code = 6729850841) See_Comment [Automated [employer] ssage] The system which generated this result transmitted reference range: 0.0 - 10.0 /100 WBCs. The reference range was not used to interpret this result as normal/abnormal. NRBC x10^3 (test code = 2609966709) See_Comment [Automated messa ge] The system which generated this result transmitted reference range: 10*3/?L. The reference range was not used to interpret this result as normal/abnormal. GRAN MAT (NEUT) % (test code = 770-8) 47.6 % IMM GRAN % (test code = 8411880067) 0.60 % LYMPH % (test code = 736-9) 39.9 % MONO % (test code = 5905-5) 5.9 % EOS % (test code = 713-8) 5.3 % BASO % (test code = 706-2) 0.7 % GRAN MAT x10^3(ANC) (test code = 1896317927) 4.45 10*3/uL 1.88-7.09 IMM GRAN x10^3 (test code = 8143932293) 0.06 10*3/uL 0-0.06 LYMPH x10^3 (test code = 731-0) 3.74 10*3/uL 1.32-3.29 H MONO x10^3 (test code = 742-7) 0.55 10*3/uL 0.33-0.92 EOS x10^3 (test code = 711-2) 0.50 10*3/uL 0.03-0.39 H BASO x10^3 (test code = 704-7) 0.07 10*3/uL 0.01-0.07 Lab Interpretation (test code = 55963-1) Abnormal [facility] [id number] 18:31:00* Test Item Value Reference Range Interpretation Comme nts POCT PREG (test code = 1605) Negative On board controls acceptable with C Line (test code = 3574) Yes POCT PREG LOT # (test code = 3575) POCT PREG TEST DATE ( test code = 3576) [facility] URINALYSIS W/O SPECIFIC [id number] 18:31:00* Test Item Value Reference Range Interpretation [...] = 3257) Trace Negative - Negati ve [facility] Consult Notes Date/Time Note Provider Source 2023-01-12 [...] symptomatic cholelithiasis 1.5 months ago at OSH ([place]). Pt states that she has had persistent RUQ pain with nausea and po intolerance along with intermittent chills and vomiting since surgery. Was seen by PCP and instructed to come to [facility] ED for further evaluation. Review of [...] N/A 07/21/2019 Surgeon: Prasanna Vargas MD; Location: [facility] Location TUBAL LIGATION N/A 07/21/2019 Surgeon: Prasanna Vargas MD; Location: [facility] Location Family History: [...] skin once every month. 1 mL 3 Byarurvmyr-Kcbhoelnmnodp-Phos (FIORICET) 50-300-40 mg per capsule Take 1 [...] symptomatic cholelithiasis 1.5 months ago at OSH ([place]). Plan: Admission to [facility] service Consult IR for percutaneous drainage of [...] pain, nausea, anorexia since lap pasquale at [facility] on 12/01/22 with noted venous bleeding [...] - Replete hypokalemia Mirella Vergara MD, PhD Professor Of Art History Trauma, Acute Care Surgery, and Surgical Critical Care In-house Pager: [phone] [facility] - Health History and Physical Notes Date/Time Note Provider Source 2023-01-12 01:05:04 Formatting of this n ote might be different from the original. 01/12/23 1:05 AM Please refer to consult note written by Rodolfo Riggins DO on 01/12/23 for complete H&P. Rodolfo Riggins DO PGY-2 Surgery Resident Associated attestation - Mirella Vergara MD - 01/12/2023 1:47 AM CDT Agree [facility] - Health Notes Date/Time Note Provider Source 2023-08-27 16:08:07 TRANSITIONAL CARE MANAGEMENT ASSESSMENT 08/27/2023 Nikko Dyson [id number] Nikko Dyson is a 28 year old /White female was admitted on 08/23/[address] She was discharged on 08/24/23 with discharge disposition of HR- Routine Discharge. Admitting Physician: Roldan Lim Discharge Diagnosis: Cerebrovascular accident (CVA), unspecified mechanism [ Pt. Voiced her thoughts about [facility], not pleased with care provided. Plans to not f/u with [facility]. Pt. Inquired about results MY chart issue due to pt. Came in the hospital not alert. Instructed via the AVS it is under the other name Dominick Adamson 08/23/2023 - 08/24/2023 Neurology/Neurological Surgery ([address]). Pt. Access via the AVS page 4 there. Pt. Has gone under this chart Karis with no results found. Gave HIM contact number for further assistance. No linked episodes TCM Tog-ehna-ci-face outreach documentation: Discharge Assessment Chart Assessed: 08/27/23 [...] 9:30 AM ADC MOBILE MRI 1 (1.5T) [facility], [facility] [phone] Marlys Odell LVN [facility] 2023-08-26 13:35:01 TRANSITIONAL CARE MANAGEMENT ASSESSMENT 08/26/2023 Nikko Dyson [id number] Nikko Dyson is a 28 year old /White female was admitted on 08/23/[address] She was discharged on 08/24/23 with discharge disposition of HR- Routine Discharge. Admitting Physician: Roldan Lim Discharge Diagnosis: Cerebrovascular accident (CVA), unspecified mechanism [I63.9] No contact. No linked episodes TCM Woa-falb-ha-face outreach documentation: Future Appointments: [facility] 2023-05-19 12:16:00 Pt given printed and [...] with steady gait, in no apparent distress. NNE [facility] 2023-05-19 08:50:00 Patient came in with complaints of epigastric pain that radiates to her left shoulder associated with nausea and vomiting since a couple of weeks now. Patient states that she was worked up in [facility] 2 weeks ago and found nothing wrong, just referred to a GI doctor but she hasn't seen one because she has no insurance. NNE Ruiz RN [facility] 2023-01-16 10:56:45 Formatting of this n ote is different from the original. TRANSITIONAL CARE MANAGEMENT ASSESSMENT 01/16/2023 Nikko Dyson [id number] Nikko Dyson is a 27 year old /White female was admitted on 01/11/[address] She was discharged on 01/15/23 with discharge disposition of HR- Routine Discharge. Admitting Physician: Oliver Steele Discharge Diagnosis: Postprocedural intraabdominal abscess [T81.43XA] Pt. Verbalized understanding discharge instructions. Plans to f/u with pcp. Linked Episodes Type: Episode: Status: Noted: Resolved: Last update: Updated by: TRANSITION OF CARE tcm Active 01/16/2023 01/16/2023 10:56 AM Marlys Odell LVN Comments: TCM Bfn-wxhw-gd-face outreach documentation: Discharge Assessment Chart Assessed: 01/16/23 [...] with the names or descriptions of any jseg-qeq-tegypca or supplements you are currently taking?: Yes [...] time?: No Future Appointments: Marlys Odell LVN [facility] 2023-01-15 18:18:34 Formatting of this n [...] Outcome: Progressing as expected Goal: Effective communication 01/15/2023 1818 by Vero Crews RN Outcome: Adequate for discharge 01/15/2023 1818 by Vero Crews RN Outcome: Adequate for discharge 01/15/2023 1310 by Vero Crews RN Outcome: Progressing as expected [facility] 2023-01-15 15:08:00 Formatting of this n ote might be different from the original. Called outpatient pharmacy and spoke to Maggi. Stated pharmacy will bring patient's medications to her room within 45min to an hour. Vero Crews RN [facility] 2023-01-15 13:11:00 Formatting of this n [...] Goal: Effective communication Outcome: Progressing as expected [facility] 2023-01-15 06:25:22 Formatting of this n [...] Outcome: Progressing as expected Katy Means RN [facility] 2023-01-14 09:27:52 Formatting of this n [...] Progressing as expected T Charles Win RN [facility] 2023-01-13 22:20:47 Formatting of this n ote might be different from the original. Notified MD by page due to double dose of Tylenol being given. Per MD Alisha no more Tylenol to be given for tonight. [facility] 2023-01-13 21:55:20 Formatting of this n ote [...] Goal: Effective communication Outcome: Progressing as expected [facility] 2023-01-13 08:20:43 Formatting of this n ote [...] Goal: Effective communication Outcome: Progressing as expected [facility] 2023-01-12 20:10:08 Formatting of this n ote [...] Goal: Effective communication Outcome: Progressing as expected [facility] 2023-01-12 09:28:38 Formatting of this n ote [...] Goal: Effective communication Outcome: Progressing as expected [facility] 2023-01-12 05:17:00 Formatting of this n ote [...] Goal: Effective communication Outcome: Progressing as expected [facility] 2023-01-12 01:43:06 Formatting of this n ote might be different from the original. Report to lisy CURRIE on 9C. Pt awaiting transport [facility] Melvin Villegas RN [facility] 2023-01-12 01:10:30 Formatting of this n ote might be different from the original. Attempted report, nurse unavailable, left callback number [facility] 2023-01-12 00:24:49 Formatting of this n ote might be different from the original. Surgery at bedside [facility] 2023-01-11 23:08:11 Formatting of this n ote might be different from the original. made aware of pt increased pain and nausea [facility] 2023-01-11 22:34:38 Formatting of this n ote might be different from the original. Pt return from CT, warm blanket given [facility] 2023-01-11 22:18:01 Formatting of this n ote might be different from the original. Pt to CT scan [facility] 2023-01-11 21:30:08 Formatting of this n ote [...] liver. Denies vomiting, denies blood in stool. T [facility] 2023-01-11 21:03:38 Formatting of this n ote might be different from the original. Nikko Dyson is a 27 year old female here today c/o abdominal pain x 2 days. Pt denies N/V but reports diarrhea. Pt reports "9/10" pain at this time. Pt reports pain travels down right side abdomen. Pt is A&Ox4, NAD Noted. RR even/unlabored. [facility] 2023-01-11 20:44:00 Formatting of this n ote is different from the original. 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 Due to the worsening discomfort patient has, for further evaluation at [facility]. Patient states that during her cholecystectomy [...] when she sits up. Patient has discontinued [place] and anxiety medication due to concern for her liver. She is only used a heating pad for her symptoms with minimal improvement. 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 METABOLIC PANEL (45242) TOTAL BETA HCG ASSAY EXTRA TUBE ORANGE EXTRA TUBE LAV EKG: If EKG completed, see Procedure Note. Orders and Treatments: Orders Placed This Encounter Procedures CT ABDOMEN PELVIS W CONTRAST POCT TEST URINALYSIS LIPASE COMP. METABOLIC PANEL (64499) TOTAL BHCG (QUANTITATIVE) Orders Placed This Encounter [...] mouth every 6 (six) hours as needed. FRHJFPGTYG-TBHGHPPEGOSIZ-WZGZ (FIORICET) 50-300-40 MG PER CAPSULE Take 1 [...] daily as needed. GABAPENTIN 600 MG TABLET [facility] PREFILLED (EMGALITY) SUBCUTANEOUS INJECTION inject 120 mg [...] in the Gallbladder fossa, post-recent cholecystectomy in [place]. General surgery was consulted and admitted the patient for further workup and management. [facility] 2022-12-03 08:57:03 Formatting of this n ote might be different from the original. Patient has an appointment 12/12/22. Blayne Silva RN 12/03/2022 8:57 AM Blayne Silva RN [facility]
[2024-01-08 09:03] LABS: Specific Gravity 1.017 (1.005-1.030)
[2024-01-08 09:06] LABS: Specific Gravity 1.017 (1.005-1.030); Sqamous Epithelial 20-50 /HPF (None Seen); Urine Bacteria <20 /HPF (<20); Urine Bilirubin NEGATIVE (Negative); Urine Blood Negative (Negative); Urine Clarity Extremely Turbid (Clear); Urine Color Light-Yellow (Yellow); Urine Culture Reflex Order NOT NEEDED; Urine Glucose NEGATIVE (Negative); Urine Ketones NEGATIVE (Negative); Urine Microscopic Reflex YN ORDER UMIC; Urine Mucus 2+ /HPF (None Seen); Urine Nitrite NEGATIVE (Negative); Urine Protein TRACE (Negative); Urine Urobilinogen Normal (Normal); Urine WBC <5 /HPF (<5); Urine pH 7.5 (5.0-7.0)
[2024-01-08 09:08] LABS: Absolute Eosinophils 0.5 K/uL (0-0.5); Absolute Lymphocytes (CBC) 1.5 K/uL (0.7-4.9); Absolute Monocytes 0.3 K/uL (0.1-1.3); Absolute Neutrophil 3.8 K/uL (1.8-8.0); Basophils % 0.7 % (0-1.3); Eosinophils % 8.6 % (0-4.4); Hematocrit 42.1 % (36.0-45.0); Hemoglobin 14.3 g/dL (12.0-15.0); Lymphocytes % 24.1 % (15.3-44.8); MCH 29.6 pg (27.0-35.0); MCHC 34.1 g/dL (32.0-36.0); MPV 8.1 fL (7.6-11.3); Monocytes % 4.2 % (3.3-12.3); Neutrophils % 62.4 % (41.7-73.7); Nucleated Red Blood Cells % 0.2 % (0-0); Platelets 298 thou/uL (152-406); RBC Red Blood Cell Count 4.84 M/uL (3.86-4.86); Red Cell Distribution Width 13.2 % (12.1-15.2)
[2024-01-08] MEDS ORDERED: ONDANSETRON 4 MG/2 ML VIAL ONE (09:14)
[2024-01-08] MEDS ORDERED: MORPHINE 4 MG/ML SYR ONE (09:14)
[2024-01-08 09:18] LABS: Albumin 4.4 g/dL (3.4-5.0); Albumin/Globulin Ratio 1.1 (1.1-1.8); Anion Gap 7.4 mEq/L (5.0-15.0); Bilirubin Total 0.5 mg/dL (0.2-1.0); Globulin 3.9 g/dL (2.3-3.5); Potassium 3.4 mEq/L (3.5-5.1); Protein, Total 8.3 g/dL (6.4-8.2)
[2024-01-08] MEDS ORDERED: DIPHENHYDRAMINE 50 MG/ML VIAL ONE (09:24)
--- NOTE | 2024-01-08 11:08 | RAD REPORT ---
EXAM DESCRIPTION: CT - Abdomen Pelvis Wo Contrast - 01/08/2024 10:52 am CLINICAL HISTORY: Abdominal pain. Flank pain. Back pain COMPARISON: November 2023 TECHNIQUE: Computed axial tomography of the abdomen and pelvis was obtained. IV and oral contrast we re not requested. All CT scans are performed using dose optimization technique as appropriate and may include automated exposure control or mA/KV adjustment according to patient size. FINDINGS: The evaluation of solid organs, vessels and bowel is limited secondary to the lack of con trast administration. Cholecystectomy Several small right renal calculi. No hydronephrosis. A ureteral calculus is not seen. No bladder yessi culus. No hydronephrosis. Liver, spleen, pancreas, adrenals and left kidney grossly normal The appendix is normal. There is no evidence of diverticulitis. No adnexal mass A small umbilical hernia Fluid is present within several small bowel loops which are normal caliber. This is nonspecific IMPRESSION: Nonobstructing right renal calculi
--- NOTE | 2024-01-08 11:43 | EDPHYS ---
Physician Documentation [facility] Name: Natanael Dyson Age: 28 yrs Sex: Female : 1995 Arrival Date: 01/08/2024 Time: 08:07 Bed 2 Private MD: ED Physician Neto Dean HPI: 01/07 11:43 This 28 yrs old Female presents to ER via Ambulatory with complaints of Back Pain, ms3 Trouble Walking. 11:43 28-year-old female with past medical history of anxiety, breast cancer, depression, ms3 kidney stone, nephritis presents to the emergency department for bilateral flank pain. Patient endorses dysuria, chills. Patient states movement makes the discomfort worse. She rates her pain a 02/19. 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 - Infectious Disease History:: Denies. - Social history:: Smoking status: Patient denies any tobacco usage or history of. ROS: 11:43 Constitutional: Negative for fever, and chills. Cardiovascular: Negative for chest ms3 pain, and palpitations. Respiratory: Negative for shortness of breath, cough, wheezing, and pleuritic chest pain, Abdomen/GI: Negative for abdominal pain, nausea, vomiting, diarrhea, and constipation, 11:43 Back: Positive for flank pain, bilaterally, 11:43 : Positive for urinary symptoms, flank pain, urinary frequency, burning with urination, Exam: 11:43 Constitutional: This is a well developed, well nourished patient who is awake, alert, ms3 and in no acute distress. Head/Face: Normocephalic, atraumatic. Chest/axilla: Normal chest wall appearance and motion. Nontender with no deformity. Cardiovascular: Regular rate and rhythm with a normal S1 and S2. No gallops, murmurs, or rubs. Normal PMI, no JVD. No pulse deficits. Respiratory: Lungs have equal breath sounds bilaterally, clear to auscultation and percussion. No rales, rhonchi or wheezes noted. No increased work of breathing, no retractions or nasal flaring. Abdomen/GI: Soft, non-tender, with normal bowel sounds. No distension or tympany. No guarding or rebound. No evidence of tenderness throughout. MS/ Extremity: Pulses equal, no cyanosis. Neurovascular intact. Full, normal range of motion. Vital Signs: 08:18 BP 144 / 105; Pulse 127; Resp 18; Pulse Ox 100% on R/A; Weight 63.5 kg; Height 5 ft. 1 iw in. ; Pain 10/10; 09:00 Pulse 100; Resp 18; Temp 98.5; Pulse Ox 100% on R/A; ll1 11:28 BP 133 / 88; Pulse 103; Resp 18; Temp 98.2; Pulse Ox 99% on R/A; kj2 12:03 BP 124 / 89; Pulse 92; Resp 18; Temp 97.9; Pulse Ox 100% on R/A; kj2 08:18 Body Mass Index 26.45 (63.50 kg, 154.94 cm) iw 08:18 Pain Scale: Adult iw MDM: 09:26 Patient medically screened. ms3 11:43 Differential diagnosis: Hydronephrosis Pyelonephritis Ureterolithiasis. Data reviewed: ms3 vital signs, nurses notes, lab test result(s), radiologic studies, and as a result, I will discharge patient. I considered the following discharge prescriptions or medication management in the emergency department Medications were administered in the Emergency Department. See MAR. Independent interpretation of the following test(s) in the Emergency Department CT Scan: My interpretation is CT abdomen pelvis without IV contrast images reviewed by me do not reveal ureterolithiasis. Counseling: I had a detailed discussion with the patient and/or guardian regarding the historical points, exam findings, and any diagnostic results supporting the discharge/admit diagnosis, lab results, radiology results, the need for outpatient follow up, to return to the emergency department if symptoms worsen or persist or if there are any questions or concerns that arise at home. ED course: Discussed labs and imaging with patient. Patient to follow-up with Dr. Rogers in 2 to 3 days. Patient understands agrees with plan. All questions were answered. Return precautions discussed include worsening symptoms, or any other concerns.. 01/07 08:35 Order name: CBC with Diff; Complete Time: 10:43 ll1 01/07 08:35 Order name: CMP; Complete Time: 10:43 ll1 01/07 08:35 Order name: Lipase; Complete Time: 10:43 ll1 01/07 08:35 Order name: Test, Urine; Complete Time: 10:43 ll1 01/07 08:35 Order name: Urinalysis w/ reflexes; Complete Time: 10:43 ll1 01/07 10:53 Order name: Abdomen EDMS 01/07 08:35 Order name: IV Saline Lock; Complete Time: 08:49 ll1 01/07 08:35 Order name: Labs collected and sent; Complete Time: 08:49 ll1 Administered Medications: 09:21 Drug: Ondansetron IVP 4 mg IVP once; over 2 minutes Route: IVP; Site: right antecubital;ll1 10:09 Follow up: Response: No adverse reaction ll1 09:21 Drug: morphine IVP or IV 4 mg IVP once over 4 mins Route: IVP; Infused Over: 4 mins; ll1 Site: right antecubital; 10:08 Follow up: Response: No adverse reaction; Pain is decreased; RASS: Alert and Calm (0) ll1 09:32 Drug: diphenhydrAMINE IVP 25 mg IVP once Route: IVP; Site: right antecubital; ll1 10:09 Follow up: Response: No adverse reaction; Nausea is decreased ll1 12:01 Drug: HYDROcodone-acetaminophen PO 5 mg-325 mg 1 tabs PO once Route: PO; kj2 12:01 Follow up: Response: No adverse reaction; Medication administered at discharge. kj2 Disposition Summary: 01/08/24 11:42 Discharge Ordered Notes: Location: Home ms3 Condition: Stable ms3 Diagnosis - Bilateral Flank pain ms3 Followup: ms3 - With: Brian Greenwood MD - When: 2 - 3 days - Reason: Recheck today's complaints Discharge Instructions: - Discharge Summary Sheet ms3 - Flank Pain, Adult, [id number] ms3 Forms: - Medication Reconciliation Form ms3 - Antibiotic Education ms3 - Prescription Opioid Use ms3 - Patient Portal Instructions ms3 - Leadership Thank You Letter ms3 Signatures: Dispatcher [employer] Vania Parekh, RN RN iw Brandi Cotter RN RN ll1 Neto Dean DO DO ms3 Vero Cheek, ROSEY RN kj2
--- NOTE | 2024-01-08 11:43 | ER ---
Nurse's Notes [facility] Name: Natanael Dyson Age: 28 yrs Sex: Female : 1995 Arrival Date: 01/08/2024 Time: 08:07 Bed 2 Private MD: Diagnosis: Bilateral Flank pain Presentation: 01/07 08:18 Chief complaint: Patient states: vish kidney pain X 5 days and pain with urination. iw Coronavirus screen: At this time, the client does not indicate any symptoms associated with coronavirus-19. Ebola Screen: No symptoms or risks identified at this time. Initial Sepsis Screen: Does the patient meet any 2 criteria? HR > 90 bpm. Does the patient have a suspected source of infection? No. Patient's initial sepsis screen is negative. Risk Assessment: Do you want to hurt yourself or someone else? Patient reports no desire to harm self or others. Onset of symptoms was January 03, 2024. 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 - Infectious Disease History:: Denies. - Social history:: Smoking status: Patient denies any tobacco usage or history of. Screenin:55 [facility] ED Fall Risk Assessment (Adult) History of falling in the last 3 months, ll1 including since admission No falls in past 3 months (0 pts) Confusion or Disorientation No (0 pts) Intoxicated or Sedated No (0 pts) Impaired Gait Yes (1 pt) Mobility Assist Device Used No (0 pt) Altered Elimination No (0 pt) Score/Fall Risk Level 0 - 2 = Low Risk Maintained a safe environment, Hourly rounding (assess needs \T\ fall precautionary measures) done. Abuse screen: Denies threats or abuse. Nutritional screening: No deficits noted. Tuberculosis screening: No symptoms or risk factors identified. Assessment: 08:54 General: Appears distressed, uncomfortable, ill, Behavior is calm, cooperative, ll1 appropriate for age. Pain: Complains of pain in back Quality of pain is described as aching, sharp. GI: Reports nausea. : Reports pain in bilateral in lower back. 09:03 Reassessment: Dr. Lopez at . ll1 09:22 Reassessment: No changes from previously documented assessment. R arm started itching ll1 after IV Zofran. Dr. Lopez informed. IV Benadryl given for reaction. 09:55 Reassessment: Pain back 02/19. Dr. Lopez informed. ll1 10:51 General: Appears in no apparent distress. Behavior is calm, cooperative. Pain: kj2 Complains of pain in back. Neuro: Level of Consciousness is awake, alert, Oriented to person, place, situation. Cardiovascular: Patient's skin is warm and dry. Respiratory: Airway is patent Respiratory effort is unlabored. 11:29 Reassessment: Patient and/or family updated on plan of care and expected duration. Pain kj2 level reassessed. Patient is alert, oriented x 3, equal unlabored respirations, skin warm/dry/pink. patient continues to report pain in abdomen with little improvement after pain medMD notified. Vital Signs: 08:18 BP 144 / 105; Pulse 127; Resp 18; Pulse Ox 100% on R/A; Weight 63.5 kg; Height 5 ft. 1 iw in. ; Pain 02/19; 09:00 Pulse 100; Resp 18; Temp 98.5; Pulse Ox 100% on R/A; ll1 11:28 BP 133 / 88; Pulse 103; Resp 18; Temp 98.2; Pulse Ox 99% on R/A; kj2 12:03 BP 124 / 89; Pulse 92; Resp 18; Temp 97.9; Pulse Ox 100% on R/A; kj2 08:18 Body Mass Index 26.45 (63.50 kg, 154.94 cm) iw 08:18 Pain Scale: Adult iw ED Course: 08:09 Patient arrived in ED. mr 08:18 Triage completed. iw 08:19 Arm band placed on. iw 08:46 Brandi Cotter, ROSEY is Primary Nurse. ll1 08:46 Urinalysis w/ reflexes Sent. ll1 08:46 Test, Urine Sent. ll1 08:51 CBC with Diff Sent. bc6 08:51 CMP Sent. bc6 08:51 Lipase Sent. bc6 08:51 Initial lab(s) drawn, by me, sent to lab. Inserted saline lock: 24 gauge in right bc6 antecubital area, using aseptic technique. Blood collected. Flushed with 10 mL NS. 08:56 Neto Lopez DO is Attending Physician. ms3 08:56 Patient has correct armband on for positive identification. Bed in low position. ll1 Provided Education on: ER procedures and process. Cardiac monitoring not applicable on this patient. 10:16 Brought patient a bedside commode. bc6 10:53 Abdomen In Process Unspecified. EDMS 11:30 No provider procedures requiring assistance completed. kj2 11:42 Brian Greenwood MD is Referral Physician. ms3 12:02 IV discontinued, intact, bleeding controlled, No redness/swelling at site. Pressure kj2 dressing applied. Administered Medications: 09:21 Drug: Ondansetron IVP 4 mg IVP once; over 2 minutes Route: IVP; Site: right antecubital;ll1 10:09 Follow up: Response: No adverse reaction ll1 09:21 Drug: morphine IVP or IV 4 mg IVP once over 4 mins Route: IVP; Infused Over: 4 mins; ll1 Site: right antecubital; 10:08 Follow up: Response: No adverse reaction; Pain is decreased; RASS: Alert and Calm (0) ll1 09:32 Drug: diphenhydrAMINE IVP 25 mg IVP once Route: IVP; Site: right antecubital; ll1 10:09 Follow up: Response: No adverse reaction; Nausea is decreased ll1 12:01 Drug: HYDROcodone-acetaminophen PO 5 mg-325 mg 1 tabs PO once Route: PO; kj2 12:01 Follow up: Response: No adverse reaction; Medication administered at discharge. kj2 Medication: 08:56 VIS not applicable for this client. ll1 Outcome: 11:42 Discharge ordered by . ms3 12:02 Discharged to home ambulatory, with family, kj2 12:02 Condition: stable 12:02 Discharge instructions given to patient, Instructed on discharge instructions, follow up and referral plans. 12:10 Patient left the ED. kj2 Signatures: Dispatcher [facility] Jeanmarie, Kymberly, Reg Reg mr Vania Loo, RN RN iw Brandi Cotter RN RN ll1 Neto Lopez DO DO ms3 Rosa Maria Melgoza6 Vero Cheek RN RN kj2
[2024-01-08] MEDS ORDERED: HYDROCODONE/APAP 5/325 MG TAB ONE (11:56)
[2024-01-08 12:26] VITALS: BP 124/89; TEMP 97.9; O2SAT 100
== END 2024-01-08 12:10 | disposition home or self-care (01) ==
LOC: ER 08:07
DX: R10.9 Unspecified abdominal pain (principal); R30.0 Dysuria; Z87.442 Personal history of urinary calculi
CPT/HCPCS: 85025; 81001; 36415; 81025; 83690; 80053; 74176; J1200; J2405

== ENCOUNTER 2024-01-22 08:11 | Emergency (ER) | payer OTHER ==
--- OUTSIDE RECORDS SUMMARY | 2024-01-22 08:14 | XMS REPORT | Continuity of Care Document ---
Author Name Unknown Address [address] [facility] [address] [place] [address] [facility] Address [address] [facility] [address] [place] [address] Care Team Providers Care Integration Technician Name Role Phone ERSHARYNON_R Attending Clinician Unavailable ERICKSON_R Admitting Clinician Unavailable Encounters Start Date/Time End Date/Time Encounter Type Admission Type Attending Clinicians Care Facility Care Department Encounter ID Source 2023-12-23 15:39:53 2023-12-23 15:39:53 Outpatient [facility] S[facility] [id number] [facility] 2023-12-08 14:51:46 2023-12-08 14:51:46 Outpatient S[facility] SFA [id number] [facility] Gil 2023-08-04 14:56:23 2023-08-04 14:56:23 Outpatient SFA SFA [id number] [facility] 2023-06-27 14:47:45 2023-06-27 14:47:45 Outpatient SFA SFA [id number] [facility] 2023-02-14 12:59:23 2023-02-14 12:59:23 Outpatient SFA SFA [id number] [facility] 2023-02-06 18:19:02 2023-02-06 18:19:02 Outpatient SFA SFA [id number] [facility] 2023-01-30 00:00:00 2023-01-30 00:00:00 Outpatient ERICKSON_R [facility] [id number] [facility] 2022-12-28 00:00:00 2022-12-28 00:00:00 Outpatient ERICKSON_R [facility] [id number] 2022-12-14 18:37:13 2022-12-14 18:37:13 Outpatient SFA SFA [id number] [facility] 2022-12-13 00:00:00 2022-12-13 00:00:00 Outpatient ERICKSON_R [facility] [id number] 2022-11-18 10:08:00 2022-11-18 10:08:00 Outpatient SFA SFA [id number] [facility] 2022-11-09 15:26:18 2022-11-09 15:26:18 Outpatient SFA SFA [id number] [facility]
[2024-01-22] MEDS ORDERED: ONDANSETRON 4 MG/2 ML VIAL ONE (09:13)
[2024-01-22] MEDS ORDERED: MORPHINE 4 MG/ML SYR ONE (09:14)
[2024-01-22] MEDS ORDERED: NA CHLORIDE 0.9% 1,000 ML ONE (09:14)
[2024-01-22 09:52] LABS: Specific Gravity 1.013 (1.005-1.030)
[2024-01-22 09:53] LABS: Absolute Basophils 0.1 K/uL (0-0.5); Absolute Eosinophils 0.5 K/uL (0-0.5); Absolute Lymphocytes (CBC) 1.8 K/uL (0.7-4.9); Absolute Monocytes 0.3 K/uL (0.1-1.3); Absolute Neutrophil 4.4 K/uL (1.8-8.0); Basophils % 0.9 % (0-1.3); Eosinophils % 7.1 % (0-4.4); Hemoglobin 13.2 g/dL (12.0-15.0); MCH 29.6 pg (27.0-35.0); MCHC 33.9 g/dL (32.0-36.0); MCV 87.2 fL (80-100); MPV 7.6 fL (7.6-11.3); Monocytes % 3.6 % (3.3-12.3); Neutrophils % 63.4 % (41.7-73.7); Nucleated Red Blood Cells % 0.1 % (0-0); Platelets 402 thou/uL (152-406); RBC Red Blood Cell Count 4.47 M/uL (3.86-4.86); Red Cell Distribution Width 13.4 % (12.1-15.2)
[2024-01-22 09:55] LABS: Specific Gravity 1.013 (1.005-1.030); Urine Bilirubin NEGATIVE (Negative); Urine Blood 3+ (OVER) (Negative); Urine Clarity Extremely Turbid (Clear); Urine Color Light-Brown (Yellow); Urine Glucose NEGATIVE (Negative); Urine Ketones NEGATIVE (Negative); Urine Microscopic Reflex YN ORDER UMIC; Urine Nitrite NEGATIVE (Negative); Urine Protein TRACE (Negative); Urine Urobilinogen Normal (Normal); Urine WBC <5 /HPF (<5); Urine pH 6.5 (5.0-7.0)
[2024-01-22 09:56] LABS: Sqamous Epithelial <5 /HPF (None Seen); Urine Bacteria None Seen /HPF (<20); Urine Culture Reflex Order NOT NEEDED; Urine Mucus 1+ /HPF (None Seen); Urine RBC >50 /HPF (None Seen)
[2024-01-22 10:00] LABS: PT Prothrombin Time 11.2 SECONDS (9.4-12.5); PTT, Activated Partial Thromb 30.6 SECONDS (24.3-36.9)
--- NOTE | 2024-01-22 10:10 | RAD REPORT ---
EXAM DESCRIPTION: CTAbdomen Pelvis W Contrast - 01/22/2024 9:47 am CLINICAL HISTORY: Abdominal pain. bloody stools;Abd pain COMPARISON: Abdomen Pelvis W Contrast dated 11/12/2023; Abdomen Pelvis W Contrast dated 06/19/2023; Abdomen Pelvis W Contrast dated 05/27/2023; Abdomen Pelvis W Contrast dated 04/08/2023 TECHNIQUE: CT imaging of the abdomen and pelvis was performed with 100 ml non-ionic IV contrast. All CT scans are performed using dose optimization technique as appropriate and may include automated exposure control or mA/KV adjustment according to patient size. FINDINGS: The lung bases are clear.Cholecystectomy clips. The liver, spleen, pancreas, adrenal glands and left kidney are within normal limits. 2 mm calculus s uperior pole right kidney. No hydronephrosis. No bowel obstruction, free air, free fluid or abscess. Moderate fecal retention in the rectosigmoid c olon. The appendix is normal. No evidence of significant lymphadenopathy. No suspicious bony findings. IMPRESSION: No acute intra-abdominal or pelvic finding. Nonobstructing right renal calculus.
[2024-01-22 10:12] LABS: Albumin 4.1 g/dL (3.4-5.0); Albumin/Globulin Ratio 1.1 (1.1-1.8); Anion Gap 10.9 mEq/L (5.0-15.0); Bilirubin Total 0.7 mg/dL (0.2-1.0); Globulin 3.8 g/dL (2.3-3.5); Potassium 3.9 mEq/L (3.5-5.1); Protein, Total 7.9 g/dL (6.4-8.2)
[2024-01-22] MEDS ORDERED: HYDROCODONE/APAP 5/325 MG TAB ONE (10:31)
[2024-01-22] MEDS ORDERED: MORPHINE 2 MG/ML SYR ONE (10:57)
--- NOTE | 2024-01-22 11:07 | EDPHYS ---
Physician Documentation [facility] Name: Natanael Dyson Age: 28 yrs Sex: Female : 1995 Arrival Date: 01/22/2024 Time: 08:11 Bed 7 Private MD: ED Physician Anusha Angel HPI: 01/21 11:01 This 28 yrs old Female presents to ER via Ambulatory with complaints of Bloody Stools - sd2 2-3 weeks. 11:01 28-year-old female presents with chief complaint of diarrhea with streaks of blood for sd2 the past 2 to 3 weeks. She reports she has been seen by her primary care doctor during this time and was given Bentyl and Zofran without relief. She reports that her abdominal pain has worsened over the past couple of days and that she has been nauseous and unable to eat at all and has been losing weight. She denies any fevers or urinary symptoms.. Historical: - Allergies: 08:30 Compazine; bp 08:30 Haldol; bp 08:30 NSAIDS NON STEROIDAL ANTI INFLAMMATORY DRUG; bp 08:30 Reglan; bp 08:30 Toradol; bp - PMHx: 08:30 Anxiety; breast cancer; depressive disorder; Kidney stone; nephritis; bp - PSHx: 08:30 Cholecystectomy; Ligation of fallopian tube; bp - Immunization history:: Adult Immunizations up to date. - Infectious Disease History:: Denies. - Social history:: Smoking status: Patient denies any tobacco usage or history of. ROS: 11:01 Constitutional: Negative for fever, chills, and weight loss, Eyes: Negative for injury, sd2 pain, redness, and discharge, Cardiovascular: Negative for chest pain, palpitations, and edema, Respiratory: Negative for shortness of breath, cough, wheezing. 11:01 : Negative for dysuria, urinary frequency, hesitancy, urgency and hematuria. MS/Extremity: Negative for injury and deformity, Neuro: Negative for headache, numbness and tingling. 11:01 Abdomen/GI: Positive for abdominal pain, nausea and vomiting, diarrhea, rectal bleeding, Exam: 11:01 Constitutional: This is a well developed, well nourished patient who is awake, alert, sd2 and in no acute distress. Head/Face: Normocephalic, atraumatic. Eyes: EOMI, normal conjunctiva bilaterally Chest/axilla: Normal chest wall appearance and motion. Nontender with no deformity. Cardiovascular: Regular rate and rhythm with a normal S1 and S2. No gallops, murmurs, or rubs. 2+ distal pulses. Respiratory: Lungs have equal breath sounds bilaterally, clear to auscultation and percussion. No rales, rhonchi or wheezes noted. No increased work of breathing, no retractions or nasal flaring. Abdomen/GI: Soft, periumbilical TTP, with normal bowel sounds. No guarding or rebound. Skin: Warm, dry with normal turgor. Normal color with no rashes, no lesions, and no evidence of cellulitis. MS/ Extremity: Pulses equal, no cyanosis. Neurovascular intact. Full, normal range of motion. Psych: Awake, alert, with orientation to person, place and time. Behavior, mood, and affect are within normal limits. Vital Signs: 08:29 BP 157 / 91; Pulse 97; Resp 16; Temp 98; Pulse Ox 100% ; Weight 45.36 kg; Height 5 ft. bp 1 in. ; 11:00 BP 143 / 85; Pulse 85; Resp 16; Pulse Ox 99% ; bp 08:29 Body Mass Index 18.89 (45.36 kg, 154.94 cm) bp MDM: 08:50 Patient medically screened. sd2 11:01 Differential Diagnosis diverticulitis, IBD, anemia, dehydration, gastritis, UTI among sd2 others. Data reviewed: vital signs, nurses notes. I considered the following discharge prescriptions or medication management in the emergency department Medications were administered in the Emergency Department. See MAR. Care significantly affected by the following chronic conditions: Cancer, kidney stones. Counseling: I had a detailed discussion with the patient and/or guardian regarding the historical points, exam findings, and any diagnostic results supporting the discharge/admit diagnosis, lab results, radiology results, the need for outpatient follow up, to return to the emergency department if symptoms worsen or persist or if there are any questions or concerns that arise at home. ED course: Labs and imaging reviewed. Labs grossly WNCL. No significant anemia. Benign abdominal exam. Pt advised to follow up with PCP and GI and pain controlled. Verbalizes understanding of strict return precautions. . 01/21 08:57 Order name: CBC with Diff; Complete Time: 10:11 sd2 09/11 08:57 Order name: CMP; Complete Time: 10:01/21 08:57 Order name: Lipase; Complete Time: 10:01/21 08:57 Order name: Urinalysis w/ reflexes; Complete Time: 10:01/21 08:57 Order name: Test, Urine; Complete Time: 10:01/21 08:57 Order name: PT-INR; Complete Time: 10:01/21 08:57 Order name: Ptt, Activated; Complete Time: 10:01/21 08:57 Order name: CT Abd/Pelvis - IV Contrast Only; Complete Time: : Administered Medications: 09:42 Drug: NS 0.9% IV 1000 ml IV at 1 bolus Per protocol; 1000 mL bolus Route: IV; Rate: 1 bp bolus; Site: right upper arm; 11:41 Follow up: Response: No adverse reaction; IV Status: Completed infusion; IV Intake: cm10 1000ml 09:43 Drug: Ondansetron IVP 4 mg IVP once; over 2 minutes Route: IVP; Site: right upper arm; bp 10:53 Follow up: Response: No adverse reaction bp 09:43 Drug: morphine IVP or IV 4 mg IVP once over 4 mins Route: IVP; Infused Over: 4 mins; bp Site: right upper arm; 10:52 Follow up: Response: No adverse reaction bp 10:47 Drug: HYDROcodone-acetaminophen PO 5 mg-325 mg 1 tabs PO once Route: PO; bp 10:59 Follow up: Response: No adverse reaction bp 10:59 Drug: morphine IVP or IV 2 mg IVP once over 4 mins Route: IVP; Infused Over: 4 mins; bp Site: right upper arm; 11:40 Follow up: Response: No adverse reaction; Marked relief of symptoms cm10 Disposition Summary: 01/22/24 11:06 Discharge Ordered Problem: an ongoing problem sd2 Symptoms: have improved sd2 Condition: Stable sd2 Diagnosis - Periumbilical pain sd2 - Blood in stool sd2 - Nausea sd2 Followup: sd2 - With: Brian Greenwood MD - When: 2 - 3 days - Reason: Recheck today's complaints, Continuance of care, Re-evaluation by your physician Followup: sd2 - With: Luciano Valencia MD - When: 2 - 3 days - Reason: Recheck today's complaints, Continuance of care, Re-evaluation by your physician Discharge Instructions: - Discharge Summary Sheet sd2 - Abdominal Pain, Adult sd2 - Bloody Diarrhea sd2 Forms: - Medication Reconciliation Form sd2 - Antibiotic Education sd2 - Prescription Opioid Use sd2 - Patient Portal Instructions sd2 - Leadership Thank You Letter sd2 Prescriptions: - Zofran 4 mg Oral tablet - take 1 tablet ORAL route every 6 hours As needed; 15 tablet; Refills: 0, sd2 Product Selection Permitted Signatures: Dispatcher [employer] Jayy Gutierrez RN RN Anusha Malik MD MD sd2 Fannie Win RN cm10
--- NOTE | 2024-01-22 11:07 | ER ---
Nurse's Notes [facility] Name: Natanael Dyson Age: 28 yrs Sex: Female : 1995 Arrival Date: 01/22/2024 Time: 08:11 Bed 7 Private MD: Diagnosis: Periumbilical pain;Blood in stool;Nausea Presentation: 01/21 08:29 Chief complaint: Patient states: 4 DAYS BLOODY STOOL AND DIFFUSE ABDOMINAL PAIN. bp Coronavirus screen: At this time, the client does not indicate any symptoms associated with coronavirus-19. Ebola Screen: No symptoms or risks identified at this time. Initial Sepsis Screen: Does the patient meet any 2 criteria? No. Patient's initial sepsis screen is negative. Does the patient have a suspected source of infection? No. Patient's initial sepsis screen is negative. Risk Assessment: Do you want to hurt yourself or someone else? Patient reports no desire to harm self or others. Onset of symptoms is unknown. 08:29 Method Of Arrival: Ambulatory bp 08:29 Acuity: THIERNO 3 bp Triage Assessment: 08:30 General: Appears uncomfortable, Behavior is cooperative, appropriate for age, anxious. bp Pain: Complains of pain in abdomen. EENT: No deficits noted. Neuro: No deficits noted. Cardiovascular: No deficits noted. Respiratory: No deficits noted. GI: Reports lower abdominal pain, bloody stool. : No signs and/or symptoms were reported regarding the genitourinary system. Derm: No deficits noted. Musculoskeletal: No deficits noted. Historical: - Allergies: 08:30 Compazine; bp 08:30 Haldol; bp 08:30 NSAIDS NON STEROIDAL ANTI INFLAMMATORY DRUG; bp 08:30 Reglan; bp 08:30 Toradol; bp - PMHx: 08:30 Anxiety; breast cancer; depressive disorder; Kidney stone; nephritis; bp - PSHx: 08:30 Cholecystectomy; Ligation of fallopian tube; bp - Immunization history:: Adult Immunizations up to date. - Infectious Disease History:: Denies. - Social history:: Smoking status: Patient denies any tobacco usage or history of. Screenin:31 [facility] ED Fall Risk Assessment (Adult) History of falling in the last 3 months, bp including since admission No falls in past 3 months (0 pts) Confusion or Disorientation No (0 pts) Intoxicated or Sedated No (0 pts) Impaired Gait No (0 pts) Mobility Assist Device Used No (0 pt) Altered Elimination No (0 pt) Score/Fall Risk Level 0 - 2 = Low Risk. Abuse screen: Denies threats or abuse. Denies injuries from another. Nutritional screening: No deficits noted. Tuberculosis screening: No symptoms or risk factors identified. Assessment: 08:30 General: Appears uncomfortable, Behavior is cooperative, appropriate for age, anxious. bp 09:30 Reassessment: Patient appears in no apparent distress at this time. Patient is alert, bp oriented x 3, equal unlabored respirations, skin warm/dry/pink. 11:00 Reassessment: Patient appears in no apparent distress at this time. Patient is alert, bp oriented x 3, equal unlabored respirations, skin warm/dry/pink. Vital Signs: 08:29 BP 157 / 91; Pulse 97; Resp 16; Temp 98; Pulse Ox 100% ; Weight 45.36 kg; Height 5 ft. bp 1 in. ; 11:00 BP 143 / 85; Pulse 85; Resp 16; Pulse Ox 99% ; bp 08:29 Body Mass Index 18.89 (45.36 kg, 154.94 cm) bp ED Course: 08:13 Patient arrived in ED. ra3 08:26 Jayy Wooten, RN is Primary Nurse. bp 08:30 Triage completed. bp 08:31 Anusha Angel MD is Attending Physician. sd2 08:31 Arm band placed on. bp 08:31 Patient has correct armband on for positive identification. bp 09:43 Accessed peripheral vein via ultrasound, utilizing dynamic ultrasound technique using bp 20G Nexia IV catheter per hospital protocol. Clean \T\ dry. Dressing intact. Good blood return. Flushes easily. 09:49 CT Abd/Pelvis - IV Contrast Only In Process Unspecified. EDMS 11:00 Provided Education on: N/A. bp 11:00 No provider procedures requiring assistance completed. bp 11:05 Brian Greenwood MD is Referral Physician. sd2 11:06 Luciano Valencia MD is Referral Physician. sd2 11:41 IV discontinued, intact, bleeding controlled, No redness/swelling at site. Pressure cm10 dressing applied. Administered Medications: 09:42 Drug: NS 0.9% IV 1000 ml IV at 1 bolus Per protocol; 1000 mL bolus Route: IV; Rate: 1 bp bolus; Site: right upper arm; 11:41 Follow up: Response: No adverse reaction; IV Status: Completed infusion; IV Intake: cm10 1000ml 09:43 Drug: Ondansetron IVP 4 mg IVP once; over 2 minutes Route: IVP; Site: right upper arm; bp 10:53 Follow up: Response: No adverse reaction bp 09:43 Drug: morphine IVP or IV 4 mg IVP once over 4 mins Route: IVP; Infused Over: 4 mins; bp Site: right upper arm; 10:52 Follow up: Response: No adverse reaction bp 10:47 Drug: HYDROcodone-acetaminophen PO 5 mg-325 mg 1 tabs PO once Route: PO; bp 10:59 Follow up: Response: No adverse reaction bp 10:59 Drug: morphine IVP or IV 2 mg IVP once over 4 mins Route: IVP; Infused Over: 4 mins; bp Site: right upper arm; 11:40 Follow up: Response: No adverse reaction; Marked relief of symptoms cm10 Medication: 11:00 VIS not applicable for this client. bp Intake: 11:41 IV: 1000ml; Total: 1000ml. cm10 Outcome: 11:06 Discharge ordered by . sd2 11:41 Discharged to home ambulatory, with significant other, cm10 11:41 Condition: good 11:41 Discharge instructions given to patient, Instructed on discharge instructions, follow up and referral plans. medication usage, Demonstrated understanding of instructions, follow-up care, medications, Prescriptions given X 1, 11:41 Patient left the ED. cm10 Signatures: Dispatcher [employer] EDJayy Lutz, RN RN Anusha Malik MD MD sd2 Martinez, Clarissa, RN RN cm10 Alva, Ruby ra3
[2024-01-22 11:46] VITALS: TEMP 98
[2024-01-22 11:47] VITALS: BP 143/85; O2SAT 99
== END 2024-01-22 11:41 | disposition home or self-care (01) ==
LOC: ER 08:11
DX: R10.33 Periumbilical pain (principal); K92.1 Melena; R11.0 Nausea
CPT/HCPCS: 96361; 85025; 81001; 36415; 81025; 85610; 85730; 83690; 80053; 74177; 96375; 96374; 99284; Q9967; J2270; J2405; J7030

== ENCOUNTER 2024-02-20 08:01 | Emergency (ER) | payer OTHER ==
--- OUTSIDE RECORDS SUMMARY | 2024-02-20 08:03 | XMS REPORT | Continuity of Care Document ---
Author Name Unknown Address [address] [facility] 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 Name Role Phone ERICKSON_R Attending Clinician Unavailable ERICKSON_R Admitting Clinician Unavailable Encounters Start Date/Time End Date/Time Encounter Type Admission Type Attending Clinicians Care Facility Care Department Encounter ID Source 2023-12-23 15:39:53 2023-12-23 15:39:53 Outpatient [facility] S[facility] [id number] [facility] 2023-12-08 14:51:46 2023-12-08 14:51:46 Outpatient [facility] SFA [id number] [facility] 2023-08-04 14:56:23 2023-08-04 14:56:23 Outpatient [facility] SFA [id number] [facility] 2023-06-27 14:47:45 2023-06-27 14:47:45 Outpatient [facility] SFA [id number] [facility] Gil 2023-02-14 12:59:23 2023-02-14 12:59:23 Outpatient [facility] SFA [id number] [facility] Gil 2023-02-06 18:19:02 2023-02-06 18:19:02 Outpatient [facility] SFA [id number] [facility] Gil 2023-01-30 00:00:00 2023-01-30 00:00:00 Outpatient [facility] [id number] 2022-12-28 00:00:00 2022-12-28 00:00:00 Outpatient [facility] [id number] 2022-12-14 18:37:13 2022-12-14 18:37:13 Outpatient [facility] SFA [id number] Willis Gil 2022-12-13 00:00:00 2022-12-13 00:00:00 Outpatient [facility] [id number] 2022-11-18 10:08:00 2022-11-18 10:08:00 Outpatient [facility]FA SFA [id number] Willis Gil 2022-11-09 15:26:18 2022-11-09 15:26:18 Outpatient SFA SFA [id number] Willis Gil
[2024-02-20] MEDS ORDERED: ONDANSETRON 4 MG/2 ML VIAL ONE (08:30)
[2024-02-20] MEDS ORDERED: MORPHINE 4 MG/ML SYR ONE ×2 (08:31→10:26)
[2024-02-20] MEDS ORDERED: NA CHLORIDE 0.9% 1,000 ML ONE ×2 (08:31→11:46)
[2024-02-20] MEDS ORDERED: METHYLPREDNISOLONE 125 MG INJ ONE (09:44)
[2024-02-20] MEDS ORDERED: DIPHENHYDRAMINE 50 MG/ML VIAL ONE (09:44)
[2024-02-20] MEDS ORDERED: FAMOTIDINE 20 MG/2 ML VIAL IV ONE (09:44)
[2024-02-20 09:46] LABS: Absolute Eosinophils 0.2 K/uL (0-0.5); Absolute Lymphocytes (CBC) 1.2 K/uL (0.7-4.9); Absolute Monocytes 0.2 K/uL (0.1-1.3); Absolute Neutrophil 6.8 K/uL (1.8-8.0); Basophils % 0.5 % (0-1.3); Eosinophils % 2.6 % (0-4.4); Hematocrit 43.3 % (36.0-45.0); Hemoglobin 14.9 g/dL (12.0-15.0); Lymphocytes % 14.4 % (15.3-44.8); MCH 29.8 pg (27.0-35.0); MCHC 34.4 g/dL (32.0-36.0); MCV 86.7 fL (80-100); MPV 8.2 fL (7.6-11.3); Monocytes % 2.7 % (3.3-12.3); Neutrophils % 79.8 % (41.7-73.7); Nucleated Red Blood Cells % 0.1 % (0-0); Platelets 289 thou/uL (152-406); Red Cell Distribution Width 13.5 % (12.1-15.2)
--- NOTE | 2024-02-20 09:47 | RAD REPORT ---
EXAMINATION: CT ABDOMEN AND PELVIS WITH CONTRAST CLINICAL INDICATION: Female, 29 years old.ABD PAIN TECHNIQUE: CT abdomen and pelvis was performed, after the administration of IV contrast, [facility]. Axial, sagittal and coronal reconstructions were obtained. One or more of the following dose reduction techniques were used: Automated exposure control, adjustment of the mA and/o r kV according to patient size, and/or iterative reconstruction. Unless otherwise specified, incidental findings do not require dedicated imaging follow-up. [id number]. COMPARISON: 01/22/2024 FINDINGS: LOWER CHEST: The visualized lung bases are clear. LIVER: Normal in size and contour. No focal lesion. GALLBLADDER/BILE DUCT: Cholecystectomy. Similar mild extrahepatic biliary duct dilatation.? PANCREAS: No significant abnormality. SPLEEN: Normal size. No focal lesion. ADRENALS: Normal; no mass. KIDNEYS AND URETERS: 4 mm stone in the upper pole right kidney. No ureteral calculi. GASTROINTESTINAL TRACT: Stomach is non-dilated. Small bowel has normal course and caliber. No colonic wall thickening or pericolonic inflammatory changes. No appendicitis. PERITONEUM: No ascites. LYMPH NODES: No lymphadenopathy. ABDOMINAL AORTA AND OTHER VESSELS: Normal caliber aorta and IVC. URINARY BLADDER: Normal contour. REPRODUCTIVE ORGANS: No pathologic process MUSCULOSKELETAL: No acute or suspicious osseous abnormality. ADDITIONAL FINDINGS: None. IMPRESSION: No acute or significant abnormalities seen in the abdomen or pelvis. Incidental findings as noted abo ve.
[2024-02-20 09:52] LABS: Specific Gravity 1.021 (1.005-1.030); Urine Bacteria None Seen /HPF (<20); Urine Bilirubin NEGATIVE (Negative); Urine Blood Negative (Negative); Urine Clarity Extremely Turbid (Clear); Urine Color Yellow (Yellow); Urine Culture Reflex Order NOT NEEDED; Urine Glucose NEGATIVE (Negative); Urine Ketones NEGATIVE (Negative); Urine Microscopic Reflex YN ORDER UMIC; Urine Mucus Slight /HPF (None Seen); Urine Nitrite NEGATIVE (Negative); Urine Protein 1+ (Negative); Urine Urobilinogen 1+ (Normal); Urine WBC <5 /HPF (<5); Urine pH 8.5 (5.0-7.0)
[2024-02-20 10:03] LABS: Specific Gravity 1.021 (1.005-1.030)
--- NOTE | 2024-02-20 11:16 | ER ---
Nurse's Notes [facility] Name: Natanael Dyson Age: 29 yrs Sex: Female : 1995 Arrival Date: 02/20/2024 Time: 08:01 Bed 20 Private MD: Diagnosis: Epigastric abdominal tenderness;Vomiting;Dehydration-MILD;Hypokalemia Presentation: 02/19 08:18 Chief complaint: Patient states: vish kidney pain and abd pain X 4 -5 days, also iw vomiting. Coronavirus screen: At this time, the client does not indicate any symptoms associated with coronavirus-19. Ebola Screen: No symptoms or risks identified at this time. Initial Sepsis Screen: Does the patient meet any 2 criteria? No. Patient's initial sepsis screen is negative. Does the patient have a suspected source of infection? No. Patient's initial sepsis screen is negative. Risk Assessment: Do you want to hurt yourself or someone else? Patient reports no desire to harm self or others. Onset of symptoms was February 15, 2024. 08:18 Method Of Arrival: Ambulatory iw 08:18 Acuity: THIERNO 3 iw Triage Assessment: 08:20 General: Appears distressed, uncomfortable, Behavior is cooperative, appropriate for bp age, agitated, anxious, crying. Pain: Complains of pain in left upper quadrant and right upper quadrant and epigastric area. GI: Abdomen is non-distended. Historical: - Allergies: 08:19 Compazine; iw 08:19 Haldol; iw 08:19 NSAIDS NON STEROIDAL ANTI INFLAMMATORY DRUG; iw 08:19 Reglan; iw 08:19 Toradol; iw - PMHx: 08:19 Anxiety; breast cancer; depressive disorder; Kidney stone; nephritis; iw - PSHx: 08:19 Cholecystectomy; Ligation of fallopian tube; iw - Immunization history:: Adult Immunizations up to date. - Infectious Disease History:: Denies. - Social history:: Smoking status: Patient denies any tobacco usage or history of. - Family history:: not pertinent. Screenin:39 [facility] ED Fall Risk Assessment (Adult) History of falling in the last 3 months, bp including since admission No falls in past 3 months (0 pts) Confusion or Disorientation No (0 pts) Intoxicated or Sedated No (0 pts) Impaired Gait No (0 pts) Mobility Assist Device Used No (0 pt) Altered Elimination No (0 pt) Score/Fall Risk Level 0 - 2 = Low Risk. Abuse screen: Denies threats or abuse. Denies injuries from another. Nutritional screening: No deficits noted. Tuberculosis screening: No symptoms or risk factors identified. Assessment: 08:20 General: Appears uncomfortable, Behavior is cooperative, appropriate for age, anxious. bp 11:00 Reassessment: Patient appears in no apparent distress at this time. Patient is alert, bp oriented x 3, equal unlabored respirations, skin warm/dry/pink. Vital Signs: 08:18 BP 131 / 92; Pulse 112; Resp 18; Temp 97.2; Pulse Ox 100% on R/A; Weight 54.43 kg; iw Height 5 ft. 1 in. ; Pain 9/10; 11:00 BP 141 / 75; Pulse 95; Resp 16; Pulse Ox 100% ; bp 13:00 BP 139 / 81; Pulse 91; Resp 18; Pulse Ox 100% ; bp 08:18 Body Mass Index 22.67 (54.43 kg, 154.94 cm) iw 08:18 Pain Scale: Adult iw ED Course: 08:03 Patient arrived in ED. im 08:06 Justin Estrella MD is Attending Physician. rudolph 08:18 Triage completed. iw 08:19 Arm band placed on. iw 08:26 Jayy Wooten, ROSEY is Primary Nurse. bp 09:38 Initial lab(s) drawn, by mn, sent to lab. Urine collected: clean catch specimen, clear. bp Inserted saline lock: 20 gauge in left forearm, using aseptic technique. Blood collected. Flushed with 10 mL NS. 09:39 CT Abd/Pelvis - IV Contrast Only In Process Unspecified. EDMS 09:39 Patient has correct armband on for positive identification. bp 11:15 Luciano Valencia MD is Referral Physician. rudolph 13:00 No provider procedures requiring assistance completed. IV discontinued, intact, bp bleeding controlled, No redness/swelling at site. Pressure dressing applied. Administered Medications: 09:38 Drug: NS 0.9% IV 1000 ml IV at 1 bolus Per protocol; 1000 mL bolus Route: IV; Rate: 1 bp bolus; Site: left forearm; 13:09 Follow up: IV Status: Completed infusion; IV Intake: 1000ml bp 09:38 Drug: Famotidine IVP 20 mg IVP once; dilute with 10 mL 0.9% NaCl; give over 2 minutes bp Route: IVP; Site: left forearm; 13:08 Follow up: Response: No adverse reaction bp 09:38 Drug: Ondansetron IVP 4 mg IVP once; over 2 minutes Route: IVP; Site: left forearm; bp 13:08 Follow up: Response: No adverse reaction bp 09:38 Drug: morphine IVP or IV 4 mg IVP once over 4 mins Route: IVP; Infused Over: 4 mins; bp Site: left forearm; 13:08 Follow up: Response: No adverse reaction bp 09:53 Drug: MethylPrednisoLONE IVP 125 mg IVP once Route: IVP; Site: left forearm; bp 13:08 Follow up: Response: No adverse reaction bp 09:53 Drug: diphenhydrAMINE IVP 50 mg IVP once Route: IVP; Site: left upper arm; bp 13:08 Follow up: Response: No adverse reaction bp 10:45 Drug: morphine IVP or IV 4 mg IVP once over 4 mins Route: IVP; Infused Over: 4 mins; bp Site: left forearm; 13:08 Follow up: Response: No adverse reaction bp 11:49 Drug: NS 0.9% IV 1000 ml IV at 1 bolus Per protocol; 1000 mL bolus Route: IV; Rate: 1 bp bolus; Site: left forearm; 13:07 Follow up: IV Status: Completed infusion; IV Intake: 1000ml bp 11:49 Not Given (Patient Refused): potassiumeffervescent tablet 25 meq PO once; dissolve in 4 bp ounces of water or juice Intake: 13:07 IV: 1000ml; Total: 1000ml. bp 13:09 IV: 1000ml; Total: 2000ml. bp Outcome: 11:16 Discharge ordered by . rudolph 13:07 Discharged to home ambulatory, bp 13:07 Condition: stable 13:07 Discharge instructions given to patient, Instructed on discharge instructions, follow up and referral plans. medication usage, Demonstrated understanding of instructions, follow-up care, medications, Prescriptions given X 3, 13:09 Patient left the ED. bp Signatures: Dispatcher [employer] EDOH Justin Estrella MD MD cha Williams, Irene, RN RN Jayy Wooten RN RN Margie Nettles
--- NOTE | 2024-02-20 11:17 | EDPHYS ---
Physician Documentation [facility] Name: Natanael Dyson Age: 29 yrs Sex: Female : 1995 Arrival Date: 02/20/2024 Time: 08:01 Bed 20 Private MD: ROMAN Physician Justin Estrella HPI: 02/19 11:10 This 29 yrs old Female presents to ER via Ambulatory with complaints of rudolph Abdominal Pain. 11:10 The patient presents with abdominal pain in the upper abdomen. Onset: The rudolph symptoms/episode began/occurred 3 day(s) ago. The symptoms do not radiate. Associated signs and symptoms: Pertinent positives: nausea and vomiting. Modifying factors: The symptoms are alleviated by nothing, the symptoms are aggravated by food. Severity of pain: At its worst the pain was moderate in the emergency department the pain is unchanged. The patient has experienced similar episodes in the past, multiple times. Historical: - Allergies: 08:19 Compazine; iw 08:19 Haldol; iw 08:19 NSAIDS NON STEROIDAL ANTI INFLAMMATORY DRUG; iw 08:19 Reglan; iw 08:19 Toradol; iw - PMHx: 08:19 Anxiety; breast cancer; depressive disorder; Kidney stone; nephritis; iw - PSHx: 08:19 Cholecystectomy; Ligation of fallopian tube; iw - Immunization history:: Adult Immunizations up to date. - Infectious Disease History:: Denies. - Social history:: Smoking status: Patient denies any tobacco usage or history of. - Family history:: not pertinent. ROS: 11:11 Constitutional: Negative for fever, chills, and weight loss, Eyes: Negative for injury, rudolph pain, redness, and discharge, ENT: Negative for injury, pain, and discharge, Neck: Negative for injury, pain, and swelling, Cardiovascular: Negative for chest pain, palpitations, and edema, Respiratory: Negative for shortness of breath, cough, wheezing, and pleuritic chest pain, Back: Negative for injury and pain, : Negative for injury, bleeding, discharge, and swelling, MS/Extremity: Negative for injury and deformity, Skin: Negative for injury, rash, and discoloration, Neuro: Negative for headache, weakness, numbness, tingling, and seizure, Psych: Negative for depression, anxiety, suicide ideation, homicidal ideation, and hallucinations, Allergy/Immunology: Negative for hives, rash, and allergies, Endocrine: Negative for neck swelling, polydipsia, polyuria, polyphagia, and marked weight changes, 11:11 Abdomen/GI: Positive for abdominal pain, nausea and vomiting, of the epigastric area, right upper quadrant and left upper quadrant, Exam: 11:11 Constitutional: This is a well developed, well nourished patient who is awake, alert, rudloph and in no acute distress. Head/Face: Normocephalic, atraumatic. Eyes: Pupils equal round and reactive to light, extra-ocular motions intact. Lids and lashes normal. Conjunctiva and sclera are non-icteric and not injected. Cornea within normal limits. Periorbital areas with no swelling, redness, or edema. ENT: Nares patent. No nasal discharge, no septal abnormalities noted. Tympanic membranes are normal and external auditory canals are clear. Oropharynx with no redness, swelling, or masses, exudates, or evidence of obstruction, uvula midline. Mucous membranes moist. Neck: Trachea midline, no thyromegaly or masses palpated, and no cervical lymphadenopathy. Supple, full range of motion without nuchal rigidity, or vertebral point tenderness. No Meningismus. Chest/axilla: Normal chest wall appearance and motion. Nontender with no deformity. No lesions are appreciated. Respiratory: Lungs have equal breath sounds bilaterally, clear to auscultation and percussion. No rales, rhonchi or wheezes noted. No increased work of breathing, no retractions or nasal flaring. Back: No spinal tenderness. No costovertebral tenderness. Full range of motion. Pelvic Exam: Normal external genitalia. Speculum exam with closed cervical os, no discharge or bleeding noted. Bimanual exam with normal adnexa, no adnexal or cervical motion tenderness. Normal uterus. Female : Normal external genitalia. Skin: Warm, dry with normal turgor. Normal color with no rashes, no lesions, and no evidence of cellulitis. MS/ Extremity: Pulses equal, no cyanosis. Neurovascular intact. Full, normal range of motion. Neuro: Awake and alert, GCS 15, oriented to person, place, time, and situation. Cranial nerves II-XII grossly intact. Motor strength 5/5 in all extremities. Sensory grossly intact. Cerebellar exam normal. Normal gait. Psych: Awake, alert, with orientation to person, place and time. Behavior, mood, and affect are within normal limits. 11:11 Cardiovascular: Rate: tachycardic, actual rate is 112 bpm, Rhythm: regular, Pulses: Pulses are 4+ in bilateral radial, brachial, femoral, popliteal, posterior tibial and and dorsalis pedis arteries.. Heart sounds: normal, Edema: is not appreciated, JVD: is not appreciated, Vital Signs: 08:18 BP 131 / 92; Pulse 112; Resp 18; Temp 97.2; Pulse Ox 100% on R/A; Weight 54.43 kg; iw Height 5 ft. 1 in. ; Pain 9/10; 11:00 BP 141 / 75; Pulse 95; Resp 16; Pulse Ox 100% ; bp 13:00 BP 139 / 81; Pulse 91; Resp 18; Pulse Ox 100% ; bp 08:18 Body Mass Index 22.67 (54.43 kg, 154.94 cm) iw 08:18 Pain Scale: Adult iw MDM: 08:06 Patient medically screened. [facility] 11:12 Differential diagnosis: bowel obstruction, cholecystitis, Cholelithiasis, rudolph diverticulitis, gastritis, Herpes Zoster, Mesenteric ischemia or infarction, non-specific abd pain, pancreatitis, Peptic Ulcer Disease, Peritonitis, Pelvic Inflammatory Disease, Pyelonephritis, Ureterolithiasis, urinary tract infection. Data reviewed: vital signs, nurses notes, lab test result(s), radiologic studies, CT scan. Consideration of Admission/Observation Escalation of care including admission/observation considered. I considered the following discharge prescriptions or medication management in the emergency department Medications were administered in the Emergency Department. See MAR. Independent interpretation of the following test(s) in the Emergency Department CT Scan: My interpretation is CT ABD / PELVIS. Test considered but Not performed: MRI: NO MRCP. Historians other than the Patient: PT WELL INFORMED. Care significantly affected by the following chronic conditions: Cancer, DEPRESSION, KIDNEY STONES, NEPHRITIS, ANXIETY. 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 02/19 08:06 Order name: CBC with Diff; Complete Time: 11:07 rudolph 02/19 08:06 Order name: CMP; Complete Time: 11:29 [facility] 02/19 08:06 Order name: Lipase; Complete Time: 11:29 [facility] 02/19 08:06 Order name: Test, Urine; Complete Time: 11:07 [facility] 02/19 08:06 Order name: Urinalysis w/ reflexes; Complete Time: 11:07 [facility] 02/19 08:06 Order name: CT Abd/Pelvis - IV Contrast Only; Complete Time: 11:07 [facility] 02/19 08:06 Order name: IV Saline Lock; Complete Time: 09:38 [facility] 02/19 08:06 Order name: Labs collected and sent; Complete Time: 09:38 [facility] 02/19 09:48 Order name: Labs - recollect needed: green; Complete Time: 11:14 02/19 11:09 Order name: PO challenge; Complete Time: 11:14 [facility] Administered Medications: 09:38 Drug: NS 0.9% IV 1000 ml IV at 1 bolus Per protocol; 1000 mL bolus Route: IV; Rate: 1 bp bolus; Site: left forearm; 13:09 Follow up: IV Status: Completed infusion; IV Intake: 1000ml bp 09:38 Drug: Famotidine IVP 20 mg IVP once; dilute with 10 mL 0.9% NaCl; give over 2 minutes bp Route: IVP; Site: left forearm; 13:08 Follow up: Response: No adverse reaction bp 09:38 Drug: Ondansetron IVP 4 mg IVP once; over 2 minutes Route: IVP; Site: left forearm; bp 13:08 Follow up: Response: No adverse reaction bp 09:38 Drug: morphine IVP or IV 4 mg IVP once over 4 mins Route: IVP; Infused Over: 4 mins; bp Site: left forearm; 13:08 Follow up: Response: No adverse reaction bp 09:53 Drug: MethylPrednisoLONE IVP 125 mg IVP once Route: IVP; Site: left forearm; bp 13:08 Follow up: Response: No adverse reaction bp 09:53 Drug: diphenhydrAMINE IVP 50 mg IVP once Route: IVP; Site: left upper arm; bp 13:08 Follow up: Response: No adverse reaction bp 10:45 Drug: morphine IVP or IV 4 mg IVP once over 4 mins Route: IVP; Infused Over: 4 mins; bp Site: left forearm; 13:08 Follow up: Response: No adverse reaction bp 11:49 Drug: NS 0.9% IV 1000 ml IV at 1 bolus Per protocol; 1000 mL bolus Route: IV; Rate: 1 bp bolus; Site: left forearm; 13:07 Follow up: IV Status: Completed infusion; IV Intake: 1000ml bp 11:49 Not Given (Patient Refused): potassiumeffervescent tablet 25 meq PO once; dissolve in 4 bp ounces of water or juice Disposition Summary: 02/20/24 11:16 Discharge Ordered Notes: Location: Home rudolph Problem: new rudolph Symptoms: have improved rudolph Condition: Stable rudolph Diagnosis - Epigastric abdominal tenderness urdolph - Vomiting rudolph - Dehydration - MILD rudolph - Hypokalemia rudolph Followup: rudolph - With: Private Physician - When: 2 - 3 days - Reason: Recheck today's complaints, Continuance of care, Re-evaluation by your physician Followup: rudolph - With: Luciano Valencia MD - When: 2 - 3 days - Reason: Recheck today's complaints, Re-evaluation by your physician Discharge Instructions: - Discharge Summary Sheet rudolph - Abdominal Pain, Adult rudolph - Dehydration, Adult rudolph - Potassium Content of Foods rudolph - Dehydration, Adult, Oipy-te-Qssi rudolph - Hypokalemia rudolph - Rehydration, Adult rudolph - Vomiting, Adult rudolph Forms: - Medication Reconciliation Form rudolph - Antibiotic Education rudolph - Prescription Opioid Use rudolph - Patient Portal Instructions [facility] - Leadership Thank You Letter [facility] Prescriptions: - ondansetron 4 mg Oral Tablet,disintegrating - take 1 tablet ORAL route every 6-8 hours; 20 tablet; Refills: 0, Product [facility] Selection Permitted - Pepcid 20 mg Oral tablet - take 1 tablet ORAL route every 12 hours for 21 days; 42 tablet; Refills: 0, rudolph Product Selection Permitted - dicyclomine 20 mg Oral tablet - take 1 tablet ORAL route 4 times per day; 28 tablet; Refills: 0, Product [facility] Selection Permitted Signatures: Dispatcher [employer] EDJustin Camacho MD MD cha Williams, Irene, Jayy Laguerre RN, RN RN bp Corrections: (The following items were deleted from the chart) 08:07 08:07 CBC+H.LAB.BRZ ordered. EDMS EDMS 08:07 08:07 COMPREHENSIVE METABOLIC PANEL+C.LAB.BRZ ordered. EDMS EDMS 08:07 08:07 LIPASE+C.LAB.BRZ ordered. EDMS EDMS 08: 08:07 Test, Urine+UC.LAB.BRZ ordered. EDMS EDMS 08: 08:07 Urinalysis+U.LAB.BRZ ordered. EDMS EDMS
[2024-02-20 11:21] LABS: Albumin 3.5 g/dL (3.4-5.0); Anion Gap 13.2 mEq/L (5.0-15.0); Bilirubin Total 0.8 mg/dL (0.2-1.0); Globulin 3.4 g/dL (2.3-3.5); Potassium 3.2 mEq/L (3.5-5.1); Protein, Total 6.9 g/dL (6.4-8.2)
[2024-02-20 13:31] VITALS: TEMP 97.2; O2SAT 100
[2024-02-20 13:35] VITALS: BP 139/81
== END 2024-02-20 13:09 | disposition home or self-care (01) ==
LOC: ER 08:01
DX: R10.816 Epigastric abdominal tenderness (principal); E86.0 Dehydration; R11.10 Vomiting, unspecified; E87.6 Hypokalemia
CPT/HCPCS: 85025; 81001; 36415; 81025; 83690; 80053; 74177; Q9967; J1200; J2919; J2405; J7030 ×2

== ENCOUNTER 2024-03-07 10:10 | Emergency (ER) | payer OTHER ==
--- OUTSIDE RECORDS SUMMARY | 2024-03-07 10:13 | XMS REPORT | Continuity of Care Document ---
Author Name Unknown Address [address] [facility] [address] [place], [place] [id number] [place] [address] [facility] [address] [facility] [address] [place] [address] Care Team Providers Care Mat Packer Name Role Phone ERICKSON_R Attending Clinician Unavailable ERICKSON_R Admitting Clinician Unavailable Encounters Start Date/Time End Date/Time Encounter Type Admission Type Attending Clinicians Care Facility Care Department Encounter ID Source 2023-12-23 15:39:53 2023-12-23 15:39:53 Outpatient [facility] [id number] [facility] 2023-12-08 14:51:46 2023-12-08 14:51:46 Outpatient [facility] SFA [id number] [facility] 2023-08-04 14:56:23 2023-08-04 14:56:23 Outpatient [facility] SFA [id number] [facility] 2023-06-27 14:47:45 2023-06-27 14:47:45 Outpatient [facility] SFA [id number] [facility] 2023-02-14 12:59:23 2023-02-14 12:59:23 Outpatient [facility] SFA [id number] [facility] 2023-02-06 18:19:02 2023-02-06 18:19:02 Outpatient [facility] SFA [id number] [facility] 2023-01-30 00:00:00 2023-01-30 00:00:00 Outpatient ERICKSON_R [facility] [id number] [facility] 2022-12-28 00:00:00 2022-12-28 00:00:00 Outpatient ERICKSON_R [facility] [id number] 2022-12-14 18:37:13 2022-12-14 18:37:13 Outpatient [facility] SFA [id number] [facility] Gil 2022-12-13 00:00:00 2022-12-13 00:00:00 Outpatient ERICKSON_R [facility] [id number] 2022-11-18 10:08:00 2022-11-18 10:08:00 Outpatient [facility] SFA [id number] [facility] Gil 2022-11-09 15:26:18 2022-11-09 15:26:18 Outpatient SFA SFA [id number] [facility]
[2024-03-07] MEDS ORDERED: ONDANSETRON 4 MG/2 ML VIAL ONE (11:15)
[2024-03-07] MEDS ORDERED: MORPHINE 4 MG/ML SYR ONE (11:16)
[2024-03-07] MEDS ORDERED: NA CHLORIDE 0.9% 1,000 ML ONE (11:16)
[2024-03-07] MEDS ORDERED: PANTOPRAZOLE 40 MG INJ ONE (11:16)
[2024-03-07 11:37] LABS: Absolute Basophils 0.1 K/uL (0-0.5); Absolute Eosinophils 0.1 K/uL (0-0.5); Absolute Lymphocytes (CBC) 2.3 K/uL (0.7-4.9); Absolute Monocytes 0.5 K/uL (0.1-1.3); Absolute Neutrophil 4.6 K/uL (1.8-8.0); Basophils % 0.8 % (0-1.3); Eosinophils % 1.5 % (0-4.4); Hematocrit 43.6 % (36.0-45.0); Hemoglobin 14.4 g/dL (12.0-15.0); Lymphocytes % 30.4 % (15.3-44.8); MCH 29.2 pg (27.0-35.0); MCV 88.5 fL (80-100); MPV 8.1 fL (7.6-11.3); Monocytes % 6.6 % (3.3-12.3); Neutrophils % 60.7 % (41.7-73.7); Nucleated Red Blood Cells % 0.1 % (0-0); Platelets 501 thou/uL (152-406); RBC Red Blood Cell Count 4.92 M/uL (3.86-4.86); Red Cell Distribution Width 13.6 % (12.1-15.2)
--- NOTE | 2024-03-07 12:36 | EDPHYS ---
Physician Documentation [facility] Name: Natanael Dyson Age: 29 yrs Sex: Female : 1995 Arrival Date: 03/07/2024 Time: 10:10 Bed 5 Private MD: ROMAN Physician Justin Estrella HPI: 03/07 12:29 This 29 yrs old Female presents to ER via Ambulatory with complaints of rudolph Vomiting - Blood. 12:29 The patient presents to the emergency department with nausea, vomiting, abdominal pain, rudolph of the epigastric area, right upper quadrant and left upper quadrant. Onset: The symptoms/episode began/occurred 2 day(s) ago. Possible causes: bad food exposure, flare up of bowel problem. The symptoms are aggravated by food , The symptoms are alleviated by remaining still, prescription meds. Associated signs and symptoms: Pertinent positives: abdominal pain, nausea, vomiting. Severity of symptoms: At their worst the symptoms were mild moderate in the emergency department the symptoms have improved moderately. The patient has experienced similar episodes in the past, multiple times. Historical: - Allergies: 10:28 Compazine; bp 10:28 Haldol; bp 10:28 NSAIDS NON STEROIDAL ANTI INFLAMMATORY DRUG; bp 10:28 Reglan; bp 10:28 Toradol; bp - PMHx: 10:28 Anxiety; breast cancer; depressive disorder; Kidney stone; nephritis; bp - PSHx: 10:28 Cholecystectomy; Ligation of fallopian tube; bp - Immunization history:: Adult Immunizations up to date. - Infectious Disease History:: Denies. - Social history:: Smoking status: unknown. ROS: 12:30 Constitutional: Negative for fever, chills, and weight loss, Eyes: Negative for injury, rudolph pain, redness, and discharge, ENT: Negative for injury, pain, and discharge, Neck: Negative for injury, pain, and swelling, Cardiovascular: Negative for chest pain, palpitations, and edema, Respiratory: Negative for shortness of breath, cough, wheezing, and pleuritic chest pain, Back: Negative for injury and pain, : Negative for injury, bleeding, discharge, and swelling, MS/Extremity: Negative for injury and deformity, Skin: Negative for injury, rash, and discoloration, Neuro: Negative for headache, weakness, numbness, tingling, and seizure, Psych: Negative for depression, anxiety, suicide ideation, homicidal ideation, and hallucinations, Allergy/Immunology: Negative for hives, rash, and allergies, Endocrine: Negative for neck swelling, polydipsia, polyuria, polyphagia, and marked weight changes, Hematologic/Lymphatic: Negative for swollen nodes, abnormal bleeding, and unusual bruising, 12:30 Abdomen/GI: Positive for abdominal pain, nausea and vomiting, abdominal cramps, Exam: 12:30 Constitutional: This is a well developed, well nourished patient who is awake, alert, rudolph and in no acute distress. Head/Face: Normocephalic, atraumatic. Eyes: Pupils equal round and reactive to light, extra-ocular motions intact. Lids and lashes normal. Conjunctiva and sclera are non-icteric and not injected. Cornea within normal limits. Periorbital areas with no swelling, redness, or edema. ENT: Nares patent. No nasal discharge, no septal abnormalities noted. Tympanic membranes are normal and external auditory canals are clear. Oropharynx with no redness, swelling, or masses, exudates, or evidence of obstruction, uvula midline. Mucous membranes moist. Neck: Trachea midline, no thyromegaly or masses palpated, and no cervical lymphadenopathy. Supple, full range of motion without nuchal rigidity, or vertebral point tenderness. No Meningismus. Chest/axilla: Normal chest wall appearance and motion. Nontender with no deformity. No lesions are appreciated. Cardiovascular: Regular rate and rhythm with a normal S1 and S2. No gallops, murmurs, or rubs. Normal PMI, no JVD. No pulse deficits. Respiratory: Lungs have equal breath sounds bilaterally, clear to auscultation and percussion. No rales, rhonchi or wheezes noted. No increased work of breathing, no retractions or nasal flaring. Back: No spinal tenderness. No costovertebral tenderness. Full range of motion. Pelvic Exam: Normal external genitalia. Speculum exam with closed cervical os, no discharge or bleeding noted. Bimanual exam with normal adnexa, no adnexal or cervical motion tenderness. Normal uterus. Female : Normal external genitalia. Skin: Warm, dry with normal turgor. Normal color with no rashes, no lesions, and no evidence of cellulitis. MS/ Extremity: Pulses equal, no cyanosis. Neurovascular intact. Full, normal range of motion. Neuro: Awake and alert, GCS 15, oriented to person, place, time, and situation. Cranial nerves II-XII grossly intact. Motor strength 5/5 in all extremities. Sensory grossly intact. Cerebellar exam normal. Normal gait. Psych: Awake, alert, with orientation to person, place and time. Behavior, mood, and affect are within normal limits. 12:30 Abdomen/GI: Inspection: abdomen appears normal, Bowel sounds: normal, Palpation: mild abdominal tenderness, in the epigastric area, right upper quadrant and left upper quadrant, Liver: no appreciated palpable abnormalities, Hernia: not appreciated, Vital Signs: 10:27 BP 140 / 101; Pulse 119; Resp 20; Temp 98; Pulse Ox 100% ; bp 12:46 BP 134 / 93; Pulse 108; Resp 16; Pulse Ox 100% ; bp 14:35 BP 140 / 86; Pulse 105; Resp 18; Pulse Ox 100% ; bp MDM: 10:28 Medical Screening Exam initiated rudolph 12:31 Differential diagnosis: Nonspecific abd pain, gastritis, cholecystitis, pancreatitis, rudolph appendicitis, diverticulitis, viral gastroenteritis, gastroenteritis. Data reviewed: vital signs, nurses notes, lab test result(s). Consideration of Admission/Observation Patient was admitted/placed on observation. Escalation of care including admission/observation considered. I considered the following discharge prescriptions or medication management in the emergency department Medications were administered in the Emergency Department. See MAR. Test considered but Not performed: CT: NO CT ABD/PELVIS. Historians other than the Patient: PT WELL INFORMED , JUST OUT OF [facility]. Care significantly affected by the following chronic conditions: Cancer, ANXIETY, DEPRESSION, NEPRITIS. 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 03/07 10:55 Order name: CBC with Diff; Complete Time: 12:27 [facility] 03/07 10:55 Order name: IV Saline Lock; Complete Time: 11:21 [facility] 03/07 10:55 Order name: Labs collected and sent; Complete Time: 11:21 [facility] 03/07 11:39 Order name: Labs - recollect needed: green top only per Sarita; Complete Time: 11:46 ss Administered Medications: 11:28 Drug: Ondansetron IVP 4 mg IVP once; over 2 minutes Route: IVP; Site: right forearm; ph 12:41 Follow up: Response: No adverse reaction bp 11:28 Drug: morphine IVP or IV 4 mg IVP once over 4 mins Route: IVP; Infused Over: 4 mins; ph Site: right forearm; 12:41 Follow up: Response: No adverse reaction bp 11:28 Drug: NS 0.9% IV 1000 ml IV at 1 bolus Per protocol; to be given as a bolus over 60 ph minutes Route: IV; Rate: 1 bolus; Site: right forearm; 14:35 Follow up: IV Status: Completed infusion bp 11:28 Drug: Pantoprazole IVP 40 mg IVP once Route: IVP; Site: right forearm; ph 12:41 Follow up: Response: No adverse reaction bp 12:45 Drug: Rocephin IV 1 grams IV at per protocol once; Given slow IV push per pharmacy bp instructions Route: IV; Rate: per protocol; Site: right forearm; 14:35 Follow up: IV Status: Completed infusion bp 13:38 Drug: diphenhydrAMINE IVP 25 mg IVP once Route: IVP; Site: right forearm; bp 14:35 Follow up: Response: No adverse reaction bp Disposition Summary: 03/07/24 12:35 Discharge Ordered Notes: Location: Home rudolph Problem: new rudolph Symptoms: have improved rudolph Condition: Stable rudolph Diagnosis - Vomiting rudolph - Epigastric abdominal tenderness rudolph - Acute gastritis rudolph - UTI/ Urinary tract infection, site not specified rudolph Followup: rudolph - With: Private Physician - When: 2 - 3 days - Reason: Recheck today's complaints, Continuance of care, Re-evaluation by your physician Followup: rudolph - With: Sandrita Colón MD - When: 2 - 3 days - Reason: Recheck today's complaints, Re-evaluation by your physician Discharge Instructions: - Discharge Summary Sheet rudolph - Abdominal Pain, Adult rudolph - Dysuria rudolph - Urinary Tract Infection, Adult rudolph - Urinary Tract Infection, Adult, Flna-qi-Poas rudolph - Abdominal Pain, Adult, [id number] rudolph - Vomiting, Adult rudolph Forms: - Medication Reconciliation Form rudolph - Antibiotic Education rudolph - Prescription Opioid Use rudolph - Patient Portal Instructions rudolph - Leadership Thank You Letter rudloph Prescriptions: - ondansetron 4 mg Oral Tablet,disintegrating - take 1 tablet ORAL route every 6-8 hours for 5 days PRN; 20 tablet; Refills: 0, [facility] Product Selection Permitted - promethazine 12.5 mg Rectal suppository - insert 1 suppository RECTAL route every 6 hours PRN; 20 suppository; Refills: rudolph 0, Product Selection Permitted - Carafate 1 gram Oral tablet - take 1 tablet ORAL route 4 times per day take on an empty stomach, beginning on rudolph waking and last dose at bedtime; 60 tablet; Refills: 0, Product Selection Permitted - Cipro 250 mg Oral tablet - take 1 tablet ORAL route every 12 hours; 14 tablet; Refills: 0, Product rudolph Selection Permitted - Protonix 40 mg Oral Tablet - take 1 tablet ORAL route once daily; 30 tablet; Refills: 0, Product Selection [facility] Permitted - dicyclomine 20 mg Oral tablet - take 1 tablet ORAL route 4 times per day; 28 tablet; Refills: 0, Product rudolph Selection Permitted Signatures: Dispatcher [employer] Justin Pinto MD MD [facility] Violeta Dubois, RN RN Viktoriya Jaramillo RN RN Jayy Wooten RN RN bp
--- NOTE | 2024-03-07 12:36 | ER ---
Nurse's Notes [facility] Name: Natanael Dyson Age: 29 yrs Sex: Female : 1995 Arrival Date: 03/07/2024 Time: 10:10 Bed 5 Private MD: Diagnosis: Vomiting;Epigastric abdominal tenderness;Acute gastritis;UTI/ Urinary tract infection, site not specified Presentation: 03/07 10:27 Chief complaint: Patient states: VOMITING x2 WK. Coronavirus screen: At this time, the bp client does not indicate any symptoms associated with coronavirus-19. Ebola Screen: No symptoms or risks identified at this time. Initial Sepsis Screen: Does the patient meet any 2 criteria? No. Patient's initial sepsis screen is negative. Does the patient have a suspected source of infection? No. Patient's initial sepsis screen is negative. Risk Assessment: Do you want to hurt yourself or someone else? Patient reports no desire to harm self or others. Onset of symptoms is unknown. 10:27 Method Of Arrival: Ambulatory bp 10:27 Acuity: THIERNO 3 bp Triage Assessment: 10:28 General: Appears distressed, Behavior is agitated, anxious. Pain: Complains of pain in bp abdomen. EENT: No deficits noted. Neuro: No deficits noted. Cardiovascular: No deficits noted. Respiratory: No deficits noted. GI: Reports nausea, vomiting. : No signs and/or symptoms were reported regarding the genitourinary system. Derm: No deficits noted. Musculoskeletal: No deficits noted. Historical: - Allergies: 10:28 Compazine; bp 10:28 Haldol; bp 10:28 NSAIDS NON STEROIDAL ANTI INFLAMMATORY DRUG; bp 10:28 Reglan; bp 10:28 Toradol; bp - PMHx: 10:28 Anxiety; breast cancer; depressive disorder; Kidney stone; nephritis; bp - PSHx: 10:28 Cholecystectomy; Ligation of fallopian tube; bp - Immunization history:: Adult Immunizations up to date. - Infectious Disease History:: Denies. - Social history:: Smoking status: unknown. Screenin:30 [facility] ED Fall Risk Assessment (Adult) History of falling in the last 3 months, bp including since admission No falls in past 3 months (0 pts) Confusion or Disorientation No (0 pts) Intoxicated or Sedated No (0 pts) Impaired Gait No (0 pts) Mobility Assist Device Used No (0 pt) Altered Elimination No (0 pt) Score/Fall Risk Level 0 - 2 = Low Risk. Abuse screen: Denies threats or abuse. Denies injuries from another. Nutritional screening: No deficits noted. Tuberculosis screening: No symptoms or risk factors identified. Assessment: 10:30 General: Appears distressed, uncomfortable, Behavior is cooperative, appropriate for bp age, anxious. GI: Abdomen is non-distended. 12:46 Reassessment: D/C ON HOLD FOR ABX. bp 14:36 Reassessment: IVF COMPLETED. PT D/C. bp Vital Signs: 10:27 BP 140 / 101; Pulse 119; Resp 20; Temp 98; Pulse Ox 100% ; bp 12:46 BP 134 / 93; Pulse 108; Resp 16; Pulse Ox 100% ; bp 14:35 BP 140 / 86; Pulse 105; Resp 18; Pulse Ox 100% ; bp ED Course: 10:14 Patient arrived in ED. ra3 10:27 Jayy Wooten, ROSEY is Primary Nurse. bp 10:28 Triage completed. bp 10:28 Justin Estrella MD is Attending Physician. rudolph 10:28 Arm band placed on. bp 10:30 Patient has correct armband on for positive identification. bp 11:21 Initial lab(s) drawn, by me, sent to lab. Urine collected: clean catch specimen, hodan bp colored. Inserted saline lock: 22 gauge in right forearm, using aseptic technique. Blood collected. Flushed with 10 mL NS. 12:34 Sandrita Colón MD is Referral Physician. rudolph 14:36 No provider procedures requiring assistance completed. IV discontinued, intact, bp bleeding controlled, No redness/swelling at site. Pressure dressing applied. Administered Medications: 11:28 Drug: Ondansetron IVP 4 mg IVP once; over 2 minutes Route: IVP; Site: right forearm; ph 12:41 Follow up: Response: No adverse reaction bp 11:28 Drug: morphine IVP or IV 4 mg IVP once over 4 mins Route: IVP; Infused Over: 4 mins; ph Site: right forearm; 12:41 Follow up: Response: No adverse reaction bp 11:28 Drug: NS 0.9% IV 1000 ml IV at 1 bolus Per protocol; to be given as a bolus over 60 ph minutes Route: IV; Rate: 1 bolus; Site: right forearm; 14:35 Follow up: IV Status: Completed infusion bp 11:28 Drug: Pantoprazole IVP 40 mg IVP once Route: IVP; Site: right forearm; ph 12:41 Follow up: Response: No adverse reaction bp 12:45 Drug: Rocephin IV 1 grams IV at per protocol once; Given slow IV push per pharmacy bp instructions Route: IV; Rate: per protocol; Site: right forearm; 14:35 Follow up: IV Status: Completed infusion bp 13:38 Drug: diphenhydrAMINE IVP 25 mg IVP once Route: IVP; Site: right forearm; bp 14:35 Follow up: Response: No adverse reaction bp Medication: 11:30 VIS not applicable for this client. ph Outcome: 12:35 Discharge ordered by . rudolph 14:36 Discharged to home ambulatory, bp 14:36 Condition: stable 14:36 Discharge instructions given to patient, Instructed on discharge instructions, follow up and referral plans. medication usage, Demonstrated understanding of instructions, follow-up care, medications, Prescriptions given X 6 14:38 Patient left the ED. bp Signatures: Justin Estrella MD MD cha Hall, Patricia, RN RN ph Jayy Wooten, RN RN bp Socorro Saldana 3
[2024-03-07] MEDS ORDERED: CEFTRIAXONE 1000 MG/VIAL ONE (12:40)
[2024-03-07] MEDS ORDERED: DIPHENHYDRAMINE 50 MG/ML VIAL ONE (13:35)
[2024-03-08 01:14] VITALS: TEMP 98; O2SAT 100
[2024-03-08 01:16] VITALS: BP 140/86
== END 2024-03-07 14:38 | disposition home or self-care (01) ==
LOC: ER 10:10
DX: K29.00 Acute gastritis without bleeding (principal); N39.0 Urinary tract infection, site not specified; R10.816 Epigastric abdominal tenderness
CPT/HCPCS: 85025; J1200; J2470; J2405; J7030; J0696; 96361; 96365; 96366; 96375; 99284

== ENCOUNTER 2024-03-09 08:26 | Emergency (ER) | payer OTHER ==
--- OUTSIDE RECORDS SUMMARY | 2024-03-09 08:29 | XMS REPORT | Continuity of Care Document ---
Author Name Unknown Address [address] [facility] 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 Name Role Phone ERICKSON_R Attending Clinician Unavailable ERICKSON_R Admitting Clinician Unavailable Encounters Start Date/Time End Date/Time Encounter Type Admission Type Attending Clinicians Care Facility Care Department Encounter ID Source 2023-12-23 15:39:53 2023-12-23 15:39:53 Outpatient [facility] S[facility] [id number] [facility] 2023-12-08 14:51:46 2023-12-08 14:51:46 Outpatient [facility] SFA [id number] [facility] 2023-08-04 14:56:23 2023-08-04 14:56:23 Outpatient [facility]FA SFA [id number] [facility] 2023-06-27 14:47:45 2023-06-27 14:47:45 Outpatient [facility] SFA [id number] [facility] 2023-02-14 12:59:23 2023-02-14 12:59:23 Outpatient [facility]FA SFA [id number] [facility] 2023-02-06 18:19:02 2023-02-06 18:19:02 Outpatient [facility] SFA [id number] [facility] 2023-01-30 00:00:00 2023-01-30 00:00:00 Outpatient ERICKSON_R [facility] [id number] 2022-12-28 00:00:00 2022-12-28 00:00:00 Outpatient ERICKSON_R [facility] [id number] 2022-12-14 18:37:13 2022-12-14 18:37:13 Outpatient [facility]FA SFA [id number] [facility] 2022-12-13 00:00:00 2022-12-13 00:00:00 Outpatient ERICKSON_R [facility] [id number] 2022-11-18 10:08:00 2022-11-18 10:08:00 Outpatient SFA SFA [id number] [facility] 2022-11-09 15:26:18 2022-11-09 15:26:18 Outpatient SFA SFA [id number] [facility]
[2024-03-09] MEDS ORDERED: NA CHLORIDE 0.9% 1,000 ML ONE (08:43)
[2024-03-09] MEDS ORDERED: ONDANSETRON 4 MG/2 ML VIAL ONE (08:43)
[2024-03-09 08:53] LABS: Absolute Basophils 0.1 K/uL (0-0.5); Absolute Eosinophils 0.1 K/uL (0-0.5); Absolute Lymphocytes (CBC) 1.6 K/uL (0.7-4.9); Absolute Monocytes 0.3 K/uL (0.1-1.3); Absolute Neutrophil 4.3 K/uL (1.8-8.0); Basophils % 0.9 % (0-1.3); Eosinophils % 1.7 % (0-4.4); Hematocrit 38.9 % (36.0-45.0); MCH 29.4 pg (27.0-35.0); MCHC 33.4 g/dL (32.0-36.0); MPV 7.8 fL (7.6-11.3); Monocytes % 4.8 % (3.3-12.3); Neutrophils % 67.6 % (41.7-73.7); Platelets 424 thou/uL (152-406); RBC Red Blood Cell Count 4.43 M/uL (3.86-4.86); Red Cell Distribution Width 13.8 % (12.1-15.2)
--- NOTE | 2024-03-09 09:01 | RAD REPORT ---
EXAM: CT brain without contrast HISTORY: Syncope;Seizure COMPARISON: 05/15/2023 TECHNIQUE: Multiple contiguous axial images were obtained and a CT of the brain without contrast. Sag ittal and coronal reformats were performed. One or more of the following dose reduction techniques were used: Automated exposure control, adjust ment of the mA and/or kV according to patient size, and/or iterative reconstruction. FINDINGS: No evidence of hydrocephalus, intracranial hemorrhage, or extra-axial fluid collection. The brain is normal in morphology. No evidence of midline shift or areas of brain edema. The calvarium is intact. The visualized paranasal sinuses and mastoid air cells are essentially clear . IMPRESSION: No evidence of acute intracranial abnormality.
--- NOTE | 2024-03-09 09:04 | RAD REPORT ---
EXAMINATION: CT ABDOMEN AND PELVIS WITHOUT CONTRAST CLINICAL INDICATION: Abd pain;Lower GI bleed TECHNIQUE: CT abdomen and pelvis was performed, without IV contrast, as per department protocol. Axia l, sagittal and coronal reconstructions were obtained. One or more of the following dose reduction techniques were used: Automated exposure control, adjustment of the mA and kV according to the patien t size, and iterative reconstruction. Unless otherwise specified, incidental findings do not require dedicated imaging follow-up. COMPARISON: 02/20/2024 FINDINGS: The lack of intravenous contrast limits the sensitivity of this exam for evaluation of solid visceral organs, vascular structures, and retroperitoneum. LOWER CHEST: The visualized lung bases are clear. LIVER:Normal in size and contour. No focal lesion. Cholecystectomy clips. SPLEEN: Normal size. No focal lesion. PANCREAS: No mass, ductal dilation, or brayan-pancreatic fluid. ADRENALS: Normal; no mass. KIDNEYS AND URETERS: 3 mm calculus is seen superior pole right kidney. No additional stone or hydrone phrosis seen. URINARY BLADDER: Normal contour. GASTROINTESTINAL TRACT: No evidence of bowel obstruction, significant free fluid, free air or abscess . APPENDIX: Normal appendix. LYMPH NODES: No lymphadenopathy. MUSCULOSKELETAL: No acute or suspicious osseous abnormality. ADDITIONAL FINDINGS: None. IMPRESSION: 3 mm nonobstructing calculus upper pole right kidney. Otherwise, no acute or concerning abnormality d etected.
[2024-03-09] MEDS ORDERED: PANTOPRAZOLE 40 MG INJ ONE (09:07)
[2024-03-09] MEDS ORDERED: MORPHINE 4 MG/ML SYR ONE (09:07)
[2024-03-09 09:09] LABS: PT Prothrombin Time 12.5 SECONDS (9.4-12.5); PTT, Activated Partial Thromb 32.1 SECONDS (24.3-36.9); Protime INR 1.12
[2024-03-09 09:12] LABS: Anion Gap 8.4 mEq/L (5.0-15.0); Bilirubin Total 0.5 mg/dL (0.2-1.0); Potassium 3.4 mEq/L (3.5-5.1)
[2024-03-09] MEDS ORDERED: DIPHENHYDRAMINE 50 MG/ML VIAL ONE (09:33)
[2024-03-09] MEDS ORDERED: LORazepam 2 MG/ML VIAL ONE (09:58)
[2024-03-09 10:29] LABS: Specific Gravity 1.013 (1.005-1.030); Sqamous Epithelial <5 /HPF (None Seen); Urine Bacteria None Seen /HPF (<20); Urine Bilirubin NEGATIVE (Negative); Urine Blood Negative (Negative); Urine Clarity Turbid (Clear); Urine Color Light-Yellow (Yellow); Urine Culture Reflex Order NOT NEEDED; Urine Glucose NEGATIVE (Negative); Urine Ketones NEGATIVE (Negative); Urine Micro Reflex YN NO BILL MICROSCOPIC; Urine Mucus Slight /HPF (None Seen); Urine Nitrite NEGATIVE (Negative); Urine Protein NEGATIVE (Negative); Urine RBC None Seen /HPF (None Seen); Urine Urobilinogen Normal (Normal); Urine WBC <5 /HPF (<5); Urine Yeast (Budding) Trace /HPF (None Seen)
[2024-03-09] MEDS ORDERED: HYDROCODONE/APAP 7.5/325 MG TAB ONE (10:47)
--- NOTE | 2024-03-09 10:52 | RAD REPORT ---
EXAMINATION: ONE VIEW CHEST XR CLINICAL INDICATION: SOB TECHNIQUE: Frontal chest projection is submitted. Examination is limited by patient positioning and t echnique. COMPARISON: 06/13/2023 FINDINGS: The lungs are well inflated and clear. The heart is normal in size. No displaced fractures identified . IMPRESSION: No acute intrathoracic abnormalities.
--- NOTE | 2024-03-09 11:04 | ER ---
Nurse's Notes [facility] Name: Natanael Dysno Age: 29 yrs Sex: Female : 1995 Arrival Date: 03/09/2024 Time: 08:26 Bed 2 Private MD: Diagnosis: Nausea with vomiting, unspecified;Abdominal pain, unspecified;Other fecal abnormalities-blood in stool Presentation: 03/09 08:49 Chief complaint: EMS states: "toned out for bloody stools x 2 weeks. 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 Pt has headache and blurred vision.". Coronavirus screen: Vaccine status: Patient reports being unvaccinated. Ebola Screen: No symptoms or risks identified at this time. Initial Sepsis Screen: Does the patient meet any 2 criteria? No. Patient's initial sepsis screen is negative. Does the patient have a suspected source of infection? No. Patient's initial sepsis screen is negative. Risk Assessment: Do you want to hurt yourself or someone else? Patient reports no desire to harm self or others. Onset of symptoms was March 09, 2024. 08:49 Method Of Arrival: EMS: [facility] mb9 08:49 Acuity: THIERNO 2 mb9 Triage Assessment: 08:51 General: Appears in no apparent distress. Behavior is anxious. Pain: Complains of pain mb9 in abdomen and headache. EENT: No signs and/or symptoms were reported regarding the EENT system. Neuro: Bradford Agitation-Sedation Scale (RASS): 0 - Alert and Calm Level of Consciousness is awake, alert, obeys commands, Oriented to person, place, time, situation, Appropriate for age Pupils are PERRLA, Reports blurred vision headache. Cardiovascular: Patient's skin is warm and dry. Rhythm is sinus tachycardia. Respiratory: Airway is patent Respiratory effort is even, unlabored, Respiratory pattern is regular, symmetrical, Breath sounds are clear bilaterally. GI: Abdomen is round non-distended, Bowel sounds present X 4 quads. Abd is soft and non tender X 4 quads. Reports bloody stool. : No signs and/or symptoms were reported regarding the genitourinary system. Derm: Skin is pink, warm \\T\\ dry. Musculoskeletal: Range of motion: intact in all extremities. 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 - Infectious Disease History:: Denies. - Social history:: Smoking status: Patient denies any tobacco usage or history of. Screenin:53 [facility] ED Fall Risk Assessment (Adult) History of falling in the last 3 months, mb9 including since admission Yes- single mechanical fall (1 pt) Confusion or Disorientation No (0 pts) Intoxicated or Sedated No (0 pts) Impaired Gait No (0 pts) Mobility Assist Device Used No (0 pt) Altered Elimination No (0 pt) Score/Fall Risk Level 3 or more points = High Risk Oriented to surroundings, Maintained a safe environment, Educated pt \\T\\ family on fall prevention, incl call for assistance when getting out of bed. Abuse screen: Denies threats or abuse. Nutritional screening: No deficits noted. Tuberculosis screening: No symptoms or risk factors identified. Assessment: 08:53 Reassessment: see triage assessment. mb9 09:53 Reassessment: Pt requests pain medication. ERP notified Patient states symptoms have mb9 not improved. GI: Reports upper abdominal pain, twisting motion in upper abdomen. 10:38 Reassessment: Patient appears in no apparent distress at this time. pt requesting pain mb9 medication for stomach, ERP at bedside speaking to pt. Patient states symptoms have not improved. Vital Signs: 08:49 BP 146 / 95; Pulse 112; Resp 16; Pulse Ox 100% on R/A; Weight 45.36 kg; Height 5 ft. 0 mb9 in. ; Pain 10/10; 09:14 BP 138 / 96; Pulse 109; Resp 18 S; Temp 98.8(O); Pulse Ox 100% on R/A; kc6 10:03 BP 103 / 70; Pulse 111; Resp 16 S; Pulse Ox 100% on R/A; kc6 11:33 BP 129 / 92; Pulse 102; Resp 16; Pulse Ox 100% ; Pain 10/10; mb9 08:49 Body Mass Index 19.53 (45.36 kg, 152.4 cm) mb9 08:49 Pain Scale: Adult mb9 11:33 Pain Scale: Adult mb9 ED Course: 08:32 Patient arrived in ED. kc6 08:33 Justin Curiel PA is PHCP. cp 08:33 Neto Dean DO is Attending Physician. cp 08:35 Patient requests pain medication. mb9 08:40 Daysi Anthony, RN is Primary Nurse. kc6 08:49 Primary Nurse role handed off by Daysi Anthony, ROSEY mb9 08:49 Kymberly Roca, ROSEY is Primary Nurse. mb9 08:50 Daysi Anthony, ROSEY is Primary Nurse. kc6 08:51 Triage completed. mb9 08:54 Placed in gown. Bed in low position. Call light in reach. Side rails up X 1. Provided mb9 Education on: press call light if needing anything. Client placed on continuous cardiac and pulse oximetry monitoring. NIBP monitoring applied. monitor worker on. 08:54 Accessed peripheral vein via ultrasound, utilizing dynamic ultrasound technique using andrew9 ,sterile technique, per hospital protocol. Clean \\T\\ dry. Dressing intact. Good blood return. Flushes easily. 20 g right AC. 08:54 EKG done, by ED staff, reviewed by Justin KWOK. Missed attempt(s): 20 gauge in right mb9 upper arm. Bleeding controlled, band aid applied, catheter tip intact. 08:55 Kymberly Roca, ROSEY is Primary Nurse. mb9 08:55 Arm band placed on. mb9 08:55 No provider procedures requiring assistance completed. mb9 08:58 CT Head Brain wo Cont In Process Unspecified. EDMS 08:58 Abdomen In Process Unspecified. EDMS 09:25 Patient requests pain medication. kc6 09:52 Patient requests pain medication. mb9 10:33 XRAY Chest (1 view) In Process Unspecified. EDMS 10:35 Patient requests pain medication. kc6 10:41 Served as a occupational medicine specialist during rectal exam. kc6 11:11 Patient requests pain medication. mb9 11:34 IV discontinued, intact, bleeding controlled, No redness/swelling at site. Pressure mb9 dressing applied. Administered Medications: 08:51 Drug: Ondansetron IVP 4 mg IVP once; over 2 minutes Route: IVP; Site: right upper arm; kc6 09:21 Follow up: Response: No adverse reaction 6 08:51 Drug: NS 0.9% IV 1000 ml IV at 1 bolus Per protocol; to be given as a bolus over 60 kc6 minutes Route: IV; Rate: 1 bolus; Site: right upper arm; 11:15 Follow up: Response: No adverse reaction; IV Status: Completed infusion 9 09:13 Drug: morphine IVP or IV 4 mg IVP once over 4 mins Route: IVP; Infused Over: 4 mins; 6 Site: right upper arm; 09:42 Follow up: Response: No adverse reaction; Pain is unchanged, physician notified; RASS: kc6 Alert and Calm (0) 09:13 Drug: Pantoprazole IVP 40 mg IVP once Route: IVP; Site: right upper arm; kc6 09:42 Follow up: Response: No adverse reaction kc6 09:35 Drug: diphenhydrAMINE IVP 25 mg IVP once Route: IVP; Site: right antecubital; mb9 10:35 Follow up: Response: No adverse reaction; RASS: Alert and Calm (0) kc6 10:01 Drug: Ativan IVP 1 mg IVP once Route: IVP; Site: right upper arm; kc6 10:35 Follow up: Response: No adverse reaction; RASS: Alert and Calm (0) kc6 10:52 Drug: Hydrocodone-Acetaminophen PO (7.5 mg-325 mg) 1 tabs PO once; RASS on ADMIN: mb9 Combtv4, Very Agttd3, Agttd2, Rstlss1, AlertClm0, Drwsy-1, Lt Sdtn-2, Mod Sdtn-3, Dp Sdtn-4, UnArsble-5 Route: PO; 11:15 Follow up: Response: Pain is unchanged, physician notified mb9 Medication: 08:55 VIS not applicable for this client. mb9 Outcome: 11:03 Discharge ordered by . cp 11:34 Discharged to home ambulatory, mb9 11:34 Condition: stable 11:34 Discharge instructions given to patient, Instructed on discharge instructions, follow up and referral plans. Demonstrated understanding of instructions, follow-up care, medications, Prescriptions given X 3, 11:34 Patient left the ED. mb9 Signatures: Dispatcher [employer] EDMS Justin Curiel PA PA cp Campbell, Kaitlyn RN RN [email or web address] Kymberly Roca RN RN mb9 Corrections: (The following items were deleted from the chart) 09:22 09:14 BP 138 / 96; Pulse 109bpm; Resp 18bpm; Spontaneous; Pulse Ox 100% RA; esequiel iraheta 09:53 09:36 Reassessment: No changes from previously documented assessment. Patient and/or mb9 family updated on plan of care and expected duration. Pain level reassessed. Patient is alert, oriented x 3, equal unlabored respirations, skin warm/dry/pink. Patient states symptoms have not improved. mb9 09:54 09:53 Reassessment: Patient states symptoms have not improved. mb9 mb9
--- NOTE | 2024-03-09 11:04 | EDPHYS ---
Physician Documentation [facility] Name: Natanael Dyson Age: 29 yrs Sex: Female : 1995 Arrival Date: 03/09/2024 Time: 08:26 Bed 2 Private MD: ED Physician Neto Dean HPI: 03/09 08:35 This 29 yrs old Female presents to ER via EMS with complaints of Bloody Stools. cp 08:35 The patient presents with abdominal pain that is diffuse. The patient presents to the emergency department with rectal bleeding, bright red blood with bowel movement, in toilet bowl, with multiple such episodes. Onset: The symptoms/episode began/occurred 2 week(s) ago. 08:35 Patient presents to ED via EMS after reported syncopal episode with seizure. Patient reports she was dropping child off at school when she became lightheaded and lost consciousness, but before falling to ground she was caught by bystander. Patient reports seizure today and does have seizure history but not on any prescribed medications. Recent hospitalization and discharge from [facility] for rectal bleeding, was diagnosed with h. pylori. Patient reports rectal bleeding with bowel movement for 2 weeks. 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 - Infectious Disease History:: Denies. - Social history:: Smoking status: Patient denies any tobacco usage or history of. ROS: 08:40 Constitutional: Negative for body aches, chills, fever, poor PO intake, cp 08:40 Eyes: Negative for injury, pain, redness, and discharge, cp 08:40 Cardiovascular: Positive for edema, palpitations, Negative for chest pain, palpitations, 08:40 Respiratory: Negative for cough, shortness of breath, wheezing, 08:40 Abdomen/GI: Positive for abdominal pain, rectal bleeding, Negative for vomiting, diarrhea, constipation, 08:40 : Negative for urinary symptoms, 08:40 Neuro: Positive for seizure activity, syncope, Negative for altered mental status, weakness, 08:40 All other systems are negative, Exam: 08:42 ECG was reviewed by the Attending Physician. cp 08:45 Constitutional: The patient appears in no acute distress, alert, awake, cp non-diaphoretic, non-toxic, well developed, well nourished, 08:45 Head/Face: Normocephalic, atraumatic. cp 08:45 Eyes: Periorbital structures: appear normal, Pupils: equal, round, and reactive to light and accomodation, Extraocular movements: intact throughout, Conjunctiva: normal, no exudate, no injection, Sclera: no appreciated abnormality, Lids and lashes: appear normal, bilaterally, 08:45 ENT: External ear(s): are unremarkable, Nose: is normal, Mouth: Lips: moist, Oral mucosa: pink and intact, moist, Posterior pharynx: Airway: no evidence of obstruction, patent, 08:45 Neck: ROM/movement: is normal, is supple, without pain, no range of motions limitations, 08:45 Chest/axilla: Inspection: normal, 08:45 Cardiovascular: Rate: tachycardic, Rhythm: regular, 08:45 Respiratory: the patient does not display signs of respiratory distress, Respirations: normal, no use of accessory muscles, no retractions, Breath sounds: are clear throughout, no decreased breath sounds, no stridor, no wheezing, 08:45 Abdomen/GI: Inspection: abdomen appears normal, Bowel sounds: active, all quadrants, Palpation: soft, in all quadrants, severe abdominal tenderness, in all quadrants, rebound tenderness, is not appreciated, involuntary guarding, is not appreciated, Rectal exam: Stool: no gross blood noted on exam, 08:45 Back: pain, is absent, ROM is normal, 08:45 Skin: Appearance: Color: normal in color, 08:45 Neuro: Orientation: to person, place \T\ time. Mentation: is normal, Motor: moves all fours, strength is normal, Vital Signs: 08:49 BP 146 / 95; Pulse 112; Resp 16; Pulse Ox 100% on R/A; Weight 45.36 kg; Height 5 ft. 0 mb9 in. ; Pain 10/10; 09:14 BP 138 / 96; Pulse 109; Resp 18 S; Temp 98.8(O); Pulse Ox 100% on R/A; kc6 10:03 BP 103 / 70; Pulse 111; Resp 16 S; Pulse Ox 100% on R/A; kc6 11:33 BP 129 / 92; Pulse 102; Resp 16; Pulse Ox 100% ; Pain 10; mb9 08:49 Body Mass Index 19.53 (45.36 kg, 152.4 cm) mb9 08:49 Pain Scale: Adult mb9 11:33 Pain Scale: Adult mb9 MDM: 08:33 Medical Screening Exam initiated 09:00 Differential diagnosis: gastritis, diverticulitis, hemorrhoids, hemorrhagic shock, cp anemia diverticulitis, pancreatitis, Peptic Ulcer Disease, Perf. Duodenal Ulcer, Perf. Gastric Ulcer, Pyelonephritis, Ureterolithiasis, urinary tract infection. 11:02 Data reviewed: vital signs, nurses notes, EMS record, lab test result(s), EKG, radiologic studies, CT scan. 11:02 I considered the following discharge prescriptions or medication management in the emergency department Medications were administered in the Emergency Department. See MAR. Independent interpretation of the following test(s) in the Emergency Department EKG: See my EKG interpretation above. 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 Response to treatment: the patient's symptoms have mildly improved after treatment. Special discussion: I discussed with the patient their frequent requests for pain medications. Instructions have been given, that in the best interests of the patient, further pain Rx's must come from the patient's PCP or a painter supervisor. 03/09 08:35 Order name: CBC with Diff; Complete Time: 09:06 cp 03/09 09:06 Interpretation: Normal except: PLT 424. 03/09 08:35 Order name: CMP; Complete Time: 10:09 cp 03/09 10:09 Interpretation: Normal except: K 3.4; CL 110; GLUC 107; CRE 1.03; GFR 75; AST 12; GLOB cp 4.0; A/G 1.0. 03/09 08:35 Order name: Lipase; Complete Time: 10:09 cp 03/09 08:35 Order name: PT-INR; Complete Time: 10:09 cp 03/09 10:10 Interpretation: Reviewed. cp 03/09 08:35 Order name: Ptt, Activated; Complete Time: 10:09 cp 03/09 08:35 Order name: Type And Screen; Complete Time: 10:09 cp 03/09 10:10 Interpretation: Reviewed. cp 03/09 08:35 Order name: Urinalysis W/Microscopic; Complete Time: 10:36 cp 03/09 10:36 Interpretation: Normal except: [facility] Turbid; BYST Trace. cp 03/09 08:35 Order name: Test, Serum; Complete Time: 10:09 cp 03/09 08:41 Order name: Magnesium; Complete Time: 10:09 cp 03/09 08:41 Order name: Lactate w/ 2H reflex if indic.; Complete Time: 10:09 cp 03/09 08:42 Order name: CT Head Brain wo Cont; Complete Time: 09:06 cp 03/09 09:07 Interpretation: Report reviewed. cp 03/09 08:55 Order name: Abdomen ; Complete Time: 09:06 EDMS 03/09 09:07 Interpretation: Report reviewed. cp 03/09 10:09 Order name: XRAY Chest (1 view); Complete Time: 11:01 cp 03/09 11:01 Interpretation: Report review. cp 03/09 08:35 Order name: IV Saline Lock; Complete Time: 08:51 cp 03/09 08:35 Order name: Labs collected and sent; Complete Time: 08:51 cp 03/09 08:35 Order name: EKG - Nurse/Tech; Complete Time: 08:40 cp 03/09 10:43 Order name: PO challenge; Complete Time: 10:48 cp EC:42 Rate is 117 beats/min. Rhythm is regular. AL interval is normal. QRS interval is cp normal. QT interval is normal. T waves are Inverted in lead aVR. Interpreted by me. Reviewed by me. Administered Medications: 08:51 Drug: Ondansetron IVP 4 mg IVP once; over 2 minutes Route: IVP; Site: right upper arm; 6 09:21 Follow up: Response: No adverse reaction [facility] 08:51 Drug: NS 0.9% IV 1000 ml IV at 1 bolus Per protocol; to be given as a bolus over 60 kc6 minutes Route: IV; Rate: 1 bolus; Site: right upper arm; 11:15 Follow up: Response: No adverse reaction; IV Status: Completed infusion mb9 09:13 Drug: morphine IVP or IV 4 mg IVP once over 4 mins Route: IVP; Infused Over: 4 mins; kc6 Site: right upper arm; 09:42 Follow up: Response: No adverse reaction; Pain is unchanged, physician notified; RASS: kc6 Alert and Calm (0) 09:13 Drug: Pantoprazole IVP 40 mg IVP once Route: IVP; Site: right upper arm; kc6 09:42 Follow up: Response: No adverse reaction kc6 09:35 Drug: diphenhydrAMINE IVP 25 mg IVP once Route: IVP; Site: right antecubital; mb9 10:35 Follow up: Response: No adverse reaction; RASS: Alert and Calm (0) kc6 10:01 Drug: Ativan IVP 1 mg IVP once Route: IVP; Site: right upper arm; kc6 10:35 Follow up: Response: No adverse reaction; RASS: Alert and Calm (0) 6 10:52 Drug: Hydrocodone-Acetaminophen PO (7.5 mg-325 mg) 1 tabs PO once; RASS on ADMIN: mb9 Combtv4, Very Agttd3, Agttd2, Rstlss1, AlertClm0, Drwsy-1, Lt Sdtn-2, Mod Sdtn-3, Dp Sdtn-4, UnArsble-5 Route: PO; 11:15 Follow up: Response: Pain is unchanged, physician notified mb9 Disposition: 17:52 I was immediately available on-site in the Emergency Department for consultation in the ms3 care of the patient. Disposition Summary: 03/09/24 11:03 Discharge Ordered Notes: Location: Home cp Problem: an ongoing problem cp Symptoms: have improved cp Condition: Stable cp Diagnosis - Nausea with vomiting, unspecified cp - Abdominal pain, unspecified cp - Other fecal abnormalities - blood in stool cp Followup: cp - With: Private Physician - When: 2 - 3 days - Reason: Recheck today's complaints Discharge Instructions: - Discharge Summary Sheet cp - Abdominal Pain, Adult cp - Gastrointestinal Bleeding cp - Nausea and Vomiting, Adult cp Forms: - Medication Reconciliation Form cp - Antibiotic Education cp - Prescription Opioid Use cp - Patient Portal Instructions cp - Leadership Thank You Letter cp Prescriptions: - Protonix 40 mg Oral Tablet - take 1 tablet ORAL route once daily; 30 tablet; Refills: 0, Product Selection cp Permitted - Zofran 4 mg Oral Tablet - take 1 tablet ORAL route every 12 hours As needed; 20 tablet; Refills: 0, cp Product Selection Permitted - Carafate 1 gram Oral tablet - take 2 tablets ORAL route every 12 hours take on an empty stomach, beginning on cp waking and last dose at bedtime. dissolve tablet in 6-8 oz warm water prior to ingestion; 100 tablet; Refills: 0, Product Selection Permitted Signatures: Dispatcher [employer] EDMS Justin Curiel PA PA cp Sims, Marcus, DO DO ms3 Daysi Anthony RN RN kc6 Kymberly Roca RN RN mb9 Corrections: (The following items were deleted from the chart) 08:36 08:36 CBC+H.LAB.BRZ ordered. EDMS EDMS 08:36 08:36 COMPREHENSIVE METABOLIC PANEL+C.LAB.BRZ ordered. EDMS EDMS 08:36 08:36 LIPASE+C.LAB.BRZ ordered. EDMS EDMS 08:36 08:36 PROTIME (+INR)+COAG.LAB.BRZ ordered. EDMS EDMS 08:36 08:36 PTT, ACTIVATED+COAG.LAB.BRZ ordered. EDMS EDMS 08:36 08:36 TYPE AND SCREEN+BB.LAB.BRZ ordered. EDMS EDMS 08:36 08:36 Urinalysis W/Microscopic+U.LAB.BRZ ordered. EDMS EDMS 08:36 08:36 TEST, SERUM+SC.LAB.BRZ ordered. EDMS EDMS 08:42 08:42 Abdomen Pelvis W Con+CT.RAD.BRZ ordered. EDMS EDMS
[2024-03-09 11:43] VITALS: O2SAT 100
[2024-03-09 11:48] VITALS: TEMP 98.8
[2024-03-09 11:53] VITALS: BP 129/92
--- NOTE | 2024-03-11 14:58 | EKG ---
Test Date: 2024-03-09 Test Time: 08:37:27 Steam Box Hand: CYRUS MEASUREMENT RESULTS: Intervals: Rate: 117 AK: 136 QRSD: 68 QT: 308 QTc: 429 [place]: P: 65 AK: 136 QRS: 61 T: 48 INTERPRETIVE STATEMENTS: Sinus tachycardia Anterior infarct, age undetermined Abnormal ECG Compared to ECG 06/19/2023 09:17:10 Myocardial infarct finding now present Electronically Signed On 03-11-24 14:48:44 CDT by Antoni Nixon
== END 2024-03-09 11:34 | disposition home or self-care (01) ==
LOC: ER 08:26
DX: R11.2 Nausea with vomiting, unspecified (principal); R10.84 Generalized abdominal pain; K92.1 Melena
CPT/HCPCS: 93005; 85025; 81001; 36415; 86900; 83735; 86850; 84703; 85610; 86901; 83605; 85730; 83690; 80053; 70450; 74176; 71045; 99285; J1200; J2470; J2405; J7030

== ENCOUNTER 2024-04-03 08:14 | Emergency (ER) | payer OTHER ==
--- OUTSIDE RECORDS SUMMARY | 2024-04-03 08:18 | XMS REPORT | Continuity of Care Document ---
Author Name Unknown Address [address] [facility] 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 Assistant Name Role Phone ERICKSON_R Attending Clinician Unavailable ERICKSON_R Admitting Clinician Unavailable Encounters Start Date/Time End Date/Time Encounter Type Admission Type Attending Clinicians Care Facility Care Department Encounter ID Source 2023-12-23 15:39:53 2023-12-23 15:39:53 Outpatient [facility] S[facility] [id number] [facility] 2023-12-08 14:51:46 2023-12-08 14:51:46 Outpatient SFA SFA [id number] [facility] 2023-08-04 14:56:23 2023-08-04 14:56:23 Outpatient SFA SFA [id number] [facility] 2023-06-27 14:47:45 2023-06-27 14:47:45 Outpatient SFA SFA [id number] [facility] 2023-02-14 12:59:23 2023-02-14 12:59:23 Outpatient SFA SFA [id number] [facility] 2023-02-06 18:19:02 2023-02-06 18:19:02 Outpatient SFA SFA [id number] [facility] 2023-01-30 00:00:00 2023-01-30 00:00:00 Outpatient ERICKSON_R [facility] [id number] 2022-12-28 00:00:00 2022-12-28 00:00:00 Outpatient ERICKSON_R [facility] [id number] 2022-12-14 18:37:13 2022-12-14 18:37:13 Outpatient SFA SFA [id number] [facility] 2022-12-13 00:00:00 2022-12-13 00:00:00 Outpatient ERICKSON_R [facility] [id number] 2022-11-18 10:08:00 2022-11-18 10:08:00 Outpatient SFA SFA [id number] [facility] 2022-11-09 15:26:18 2022-11-09 15:26:18 Outpatient SFA SFA [id number] [facility]
[2024-04-03] MEDS ORDERED: ONDANSETRON 4 MG/2 ML VIAL ONE (09:18)
[2024-04-03] MEDS ORDERED: FAMOTIDINE 20 MG/2 ML VIAL IV ONE (09:18)
[2024-04-03] MEDS ORDERED: NA CHLORIDE 0.9% 1,000 ML ONE (09:18)
[2024-04-03 09:34] LABS: Absolute Eosinophils 0.2 K/uL (0-0.5); Absolute Lymphocytes (CBC) 1.3 K/uL (0.7-4.9); Absolute Monocytes 0.4 K/uL (0.1-1.3); Basophils % 0.4 % (0-1.3); Hematocrit 41.1 % (36.0-45.0); Hemoglobin 13.7 g/dL (12.0-15.0); Lymphocytes % 11.7 % (15.3-44.8); MCH 29.4 pg (27.0-35.0); MCHC 33.3 g/dL (32.0-36.0); MCV 88.2 fL (80-100); MPV 7.7 fL (7.6-11.3); Neutrophils % 81.9 % (41.7-73.7); Nucleated Red Blood Cells % 0.1 % (0-0); Platelets 364 thou/uL (152-406); RBC Red Blood Cell Count 4.66 M/uL (3.86-4.86)
[2024-04-03 09:36] LABS: Specific Gravity 1.018 (1.005-1.030)
[2024-04-03 09:37] LABS: Specific Gravity 1.018 (1.005-1.030); Sqamous Epithelial <5 /HPF (None Seen); Urine Bacteria None Seen /HPF (<20); Urine Bilirubin NEGATIVE (Negative); Urine Blood 1+ (Negative); Urine Clarity Extremely Turbid (Clear); Urine Color Light-Yellow (Yellow); Urine Culture Reflex Order NOT NEEDED; Urine Glucose NEGATIVE (Negative); Urine Ketones NEGATIVE (Negative); Urine Microscopic Reflex YN ORDER UMIC; Urine Mucus 1+ /HPF (None Seen); Urine Nitrite NEGATIVE (Negative); Urine Protein NEGATIVE (Negative); Urine Urobilinogen Normal (Normal); Urine WBC <5 /HPF (<5)
[2024-04-03] MEDS ORDERED: DIPHENHYDRAMINE 50 MG/ML VIAL ONE ×2 (09:45→10:25)
[2024-04-03] MEDS ORDERED: MORPHINE 4 MG/ML SYR ONE ×2 (09:46→11:00)
[2024-04-03 09:50] LABS: Albumin 3.9 g/dL (3.4-5.0); Globulin 3.9 g/dL (2.3-3.5); Protein, Total 7.8 g/dL (6.4-8.2)
--- NOTE | 2024-04-03 11:02 | ER ---
Nurse's Notes [facility] Name: Natanael Dyson Age: 29 yrs Sex: Female : 1995 Arrival Date: 04/03/2024 Time: 08:14 Bed 6 Private MD: Diagnosis: Vomiting;Epigastric abdominal tenderness;Diarrhea, unspecified;Abdominal pain, Generalized Presentation: 04/03 08:29 Chief complaint: Patient states: ABD pain and diarrhea that began 3-4 days ago. ss Coronavirus screen: Client denies travel out of the [place] in the last 14 days. Ebola Screen: Patient denies exposure to infectious person. Patient denies travel to an Ebola-affected area in the 21 days before illness onset. Initial Sepsis Screen: Does the patient meet any 2 criteria? No. Patient's initial sepsis screen is negative. Does the patient have a suspected source of infection? No. Patient's initial sepsis screen is negative. Risk Assessment: Do you want to hurt yourself or someone else? Patient reports no desire to harm self or others. Onset of symptoms was March 30, 2024. 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 - Infectious Disease History:: Denies. - Social history:: Smoking status: Patient denies any tobacco usage or history of. - Family history:: not pertinent. Screenin:00 [facility] ED Fall Risk Assessment (Adult) History of falling in the last 3 months, aa5 including since admission No falls in past 3 months (0 pts) Confusion or Disorientation No (0 pts) Intoxicated or Sedated No (0 pts) Impaired Gait No (0 pts) Mobility Assist Device Used No (0 pt) Altered Elimination No (0 pt) Score/Fall Risk Level 0 - 2 = Low Risk. Abuse screen: Denies threats or abuse. Nutritional screening: No deficits noted. Tuberculosis screening: No symptoms or risk factors identified. Assessment: 09:00 General: Appears uncomfortable, Behavior is calm, cooperative. Pain: Complains of pain aa5 in left upper quadrant Pain radiates to left shoulder Pain currently is 9 out of 10 on a pain scale. Quality of pain is described as stabbing, Is continuous. Neuro: Level of Consciousness is awake, alert, obeys commands, Oriented to person, place, time, situation. Cardiovascular: Patient's skin is warm and dry. Respiratory: Airway is patent Respiratory effort is even, unlabored, Respiratory pattern is regular, symmetrical. GI: Abdomen is round non-distended, Bowel sounds present X 4 quads. Abd is soft X 4 quads Reports diarrhea. : No signs and/or symptoms were reported regarding the genitourinary system. EENT: No signs and/or symptoms were reported regarding the EENT system. Derm: Skin is pink, warm \T\ dry. Musculoskeletal: Range of motion: intact in all extremities. 09:30 Reassessment: Patient is alert, oriented x 3, equal unlabored respirations, skin aa5 warm/dry/pink. 09:57 Reassessment: Patient is alert, oriented x 3, equal unlabored respirations, skin aa5 warm/dry/pink. 10:31 Reassessment: Patient appears in no apparent distress at this time. Patient and/or jb4 family updated on plan of care and expected duration. Pain level reassessed. Patient is alert, oriented x 3, equal unlabored respirations, skin warm/dry/pink. Pt reports rash around the wrist after morphine and benadryl administration. Provider notified Received verbal order for 25mg of Benadryl IVP x1. 11:32 Reassessment: Patient is alert, oriented x 3, equal unlabored respirations, skin aa5 warm/dry/pink. Vital Signs: 08:29 BP 132 / 89; Pulse 134; Resp 16; Temp 98.4(O); Pulse Ox 100% on R/A; Weight 45.36 kg; ss Height 5 ft. 1 in. ; Pain 9/10; 09:30 Pulse 123; Resp 19 S; Pulse Ox 100% on R/A; aa5 10:11 BP 121 / 83; Pulse 106; Resp 16 S; Pulse Ox 100% on R/A; aa5 11:10 BP 124 / 89; Pulse 105; Resp 16 S; Pulse Ox 100% on R/A; aa5 08:29 Body Mass Index 18.89 (45.36 kg, 154.94 cm) ss 08:29 Pain Scale: Adult ss ED Course: 08:17 Patient arrived in ED. mg5 08:25 Justin Estrella MD is Attending Physician. rudolph 08:29 Arm band placed on left wrist. ss 08:30 Triage completed. ss 08:35 Jaycee Brewer, ROSEY is Primary Nurse. aa5 09:00 Patient has correct armband on for positive identification. Bed in low position. Call aa5 light in reach. Side rails up X 1. Pulse ox on. NIBP on. 09:23 Initial lab(s) drawn, by me, sent to lab. Inserted saline lock: 22 gauge in right zm wrist, using aseptic technique. Blood collected. Flushed with 10 mL NS. 09:23 Urine collected: clean catch specimen, clear. zm 09:24 CBC with Diff Sent. zm 09:24 CMP Sent. zm 09:24 Lipase Sent. zm 09:24 Test, Urine Sent. zm 09:24 Urinalysis w/ reflexes Sent. zm 09:24 No provider procedures requiring assistance completed. aa5 11:01 Sandrita Colón MD is Referral Physician. rudolph 11:31 IV discontinued, intact, bleeding controlled, No redness/swelling at site. Pressure aa5 dressing applied. Administered Medications: 09:30 Drug: Ondansetron IVP 4 mg IVP once; over 2 minutes Route: IVP; Site: right wrist; aa5 09:40 Follow up: Response: No adverse reaction aa5 09:30 Drug: NS 0.9% IV 1000 ml IV at 1 bolus Per protocol; to be given as a bolus over 60 aa5 minutes Route: IV; Rate: 1 bolus; Site: right wrist; 10:32 Follow up: IV Status: Completed infusion; IV Intake: 1000ml aa5 09:42 Not Given (Physician Discretion): [id number] mg IVP once; dilute with 10 mL 0.9% aa5 NaCl; give over 2 minutes 09:57 Drug: morphine IVP or IV 4 mg IVP once over 4 mins Route: IVP; Infused Over: 4 mins; jb4 Site: right wrist; 10:32 Follow up: Response: Adverse reaction, Physician notified; Pain is decreased; RASS: jb4 Alert and Calm (0) 09:57 Drug: diphenhydrAMINE IVP 25 mg IVP once Route: IVP; Site: right wrist; jb4 10:32 Follow up: Response: No adverse reaction jb4 10:32 Drug: diphenhydrAMINE IVP 25 mg IVP once Route: IVP; Site: right wrist; jb4 11:02 Follow up: Response: No adverse reaction aa5 11:02 Drug: morphine IVP or IV 4 mg IVP once over 4 mins Route: IVP; Infused Over: 4 mins; aa5 Site: right wrist; 11:06 Follow up: Response: No adverse reaction aa5 11:18 Follow up: hives noted to right forearm, pt c/o itching, MD was notified. aa5 11:23 Drug: MethylPrednisoLONE IVP 125 mg IVP once Route: IVP; Site: right wrist; aa5 11:32 Follow up: Response: No adverse reaction; No adverse reaction, hives have resolved. aa5 11:24 Drug: Famotidine IVP 20 mg IVP once; dilute with 10 mL 0.9% NaCl; give over 2 minutes aa5 Route: IVP; Site: right wrist; 11:32 Follow up: Hives have resolved. aa5 Medication: 10:13 VIS not applicable for this client. aa5 Intake: 10:32 IV: 1000ml; Total: 1000ml. aa5 Outcome: 11:02 Discharge ordered by . rudolph 11:31 Discharged to home ambulatory, with significant other, aa5 11:31 Condition: improved 11:31 Discharge instructions given to patient, Instructed on discharge instructions, follow up and referral plans. medication usage, Demonstrated understanding of instructions, follow-up care, medications, Prescriptions given X 2, 11:32 Patient left the ED. aa5 Signatures: Justin Estrella MD MD cha Calderon, Audri, RN RN aa5 Violeta Dubois RN RN ss Bryson, James, RN RN jb4 Connie Win [place] mg5 Corrections: (The following items were deleted from the chart) 09:30 09:29 Famotidine IVP 20 mg IVP in right wrist aa5 aa5 11:25 11:18 hives noted to right forearm, pt c/o itching. aa5 aa5
--- NOTE | 2024-04-03 11:02 | EDPHYS ---
Physician Documentation [facility] Name: Natanael Dyson Age: 29 yrs Sex: Female : 1995 Arrival Date: 04/03/2024 Time: 08:14 Bed 6 Private MD: ROMAN Physician Justin Estrella HPI: 04/03 10:55 This 29 yrs old Female presents to ER via Ambulatory with complaints of rudolph Abdominal Pain. 10:55 The patient presents with abdominal pain in the epigastric area, in the upper abdomen. rudolph Onset: The symptoms/episode began/occurred 3 day(s) ago. 10:56 The patient presents to the emergency department with nausea, diarrhea, abdominal pain, rudolph of the right upper quadrant and left upper quadrant. Onset: The symptoms/episode began/occurred 2 day(s) ago. Possible causes: unknown. Associated signs and symptoms: Pertinent positives: diarrhea. Modifying factors: The symptoms are alleviated by nothing, the symptoms are aggravated by food. 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 - Infectious Disease History:: Denies. - Social history:: Smoking status: Patient denies any tobacco usage or history of. - Family history:: not pertinent. ROS: 10:56 Constitutional: Negative for fever, chills, and weight loss, Eyes: Negative for injury, rudolph pain, redness, and discharge, ENT: Negative for injury, pain, and discharge, Neck: Negative for injury, pain, and swelling, Cardiovascular: Negative for chest pain, palpitations, and edema, Respiratory: Negative for shortness of breath, cough, wheezing, and pleuritic chest pain, Back: Negative for injury and pain, : Negative for injury, bleeding, discharge, and swelling, MS/Extremity: Negative for injury and deformity, Skin: Negative for injury, rash, and discoloration, Neuro: Negative for headache, weakness, numbness, tingling, and seizure, Psych: Negative for depression, anxiety, suicide ideation, homicidal ideation, and hallucinations, Allergy/Immunology: Negative for hives, rash, and allergies, Endocrine: Negative for neck swelling, polydipsia, polyuria, polyphagia, and marked weight changes, Hematologic/Lymphatic: Negative for swollen nodes, abnormal bleeding, and unusual bruising, 10:56 Abdomen/GI: Positive for abdominal pain, nausea, diarrhea, Exam: 10:56 Constitutional: This is a well developed, well nourished patient who is awake, alert, rudolph and in no acute distress. Head/Face: Normocephalic, atraumatic. Eyes: Pupils equal round and reactive to light, extra-ocular motions intact. Lids and lashes normal. Conjunctiva and sclera are non-icteric and not injected. Cornea within normal limits. Periorbital areas with no swelling, redness, or edema. ENT: Nares patent. No nasal discharge, no septal abnormalities noted. Tympanic membranes are normal and external auditory canals are clear. Oropharynx with no redness, swelling, or masses, exudates, or evidence of obstruction, uvula midline. Mucous membranes moist. Neck: Trachea midline, no thyromegaly or masses palpated, and no cervical lymphadenopathy. Supple, full range of motion without nuchal rigidity, or vertebral point tenderness. No Meningismus. Chest/axilla: Normal chest wall appearance and motion. Nontender with no deformity. No lesions are appreciated. Cardiovascular: Regular rate and rhythm with a normal S1 and S2. No gallops, murmurs, or rubs. Normal PMI, no JVD. No pulse deficits. Respiratory: Lungs have equal breath sounds bilaterally, clear to auscultation and percussion. No rales, rhonchi or wheezes noted. No increased work of breathing, no retractions or nasal flaring. Back: No spinal tenderness. No costovertebral tenderness. Full range of motion. Skin: Warm, dry with normal turgor. Normal color with no rashes, no lesions, and no evidence of cellulitis. MS/ Extremity: Pulses equal, no cyanosis. Neurovascular intact. Full, normal range of motion. Neuro: Awake and alert, GCS 15, oriented to person, place, time, and situation. Cranial nerves II-XII grossly intact. Motor strength 5/5 in all extremities. Sensory grossly intact. Cerebellar exam normal. Normal gait. Psych: Awake, alert, with orientation to person, place and time. Behavior, mood, and affect are within normal limits. 10:56 Abdomen/GI: Inspection: abdomen appears normal, Bowel sounds: active, all quadrants, Palpation: mild abdominal tenderness, in all quadrants, Liver: no appreciated palpable abnormalities, Hernia: not appreciated, Vital Signs: 08:29 BP 132 / 89; Pulse 134; Resp 16; Temp 98.4(O); Pulse Ox 100% on R/A; Weight 45.36 kg; ss Height 5 ft. 1 in. ; Pain 9/10; 09:30 Pulse 123; Resp 19 S; Pulse Ox 100% on R/A; aa5 10:11 BP 121 / 83; Pulse 106; Resp 16 S; Pulse Ox 100% on R/A; aa5 11:10 BP 124 / 89; Pulse 105; Resp 16 S; Pulse Ox 100% on R/A; aa5 08:29 Body Mass Index 18.89 (45.36 kg, 154.94 cm) ss 08:29 Pain Scale: Adult ss MDM: 08:28 Medical Screening Exam initiated rudolph 10:58 Differential diagnosis: Nonspecific abd pain, gastritis, pancreatitis, diverticulitis, rudolph viral gastroenteritis, gastroenteritis, bowel obstruction, gastritis, Mesenteric ischemia or infarction, non-specific abd pain, pancreatitis, Peptic Ulcer Disease, Ureterolithiasis, urinary tract infection. Data reviewed: vital signs, nurses notes, lab test result(s). Consideration of Admission/Observation Escalation of care including admission/observation considered. I considered the following discharge prescriptions or medication management in the emergency department Medications were administered in the Emergency Department. See MAR. Test considered but Not performed: MRI: no ct abd/pel. Care significantly affected by the following chronic conditions: Cancer, gi, breast ca, kidney stone, pephritis. 11:03 ED course: cont pepcid, protonix. [facility] 04/03 08:26 Order name: CBC with Diff; Complete Time: 10:37 [facility] 04/03 08:26 Order name: CMP; Complete Time: 10:37 [facility] 04/03 08:26 Order name: Lipase; Complete Time: 10:37 [facility] 04/03 08:26 Order name: Test, Urine; Complete Time: 10:37 [facility] 04/03 08:26 Order name: Urinalysis w/ reflexes; Complete Time: 10:37 [facility] 04/03 08:26 Order name: IV Saline Lock; Complete Time: 09:24 [facility] 04/03 08:26 Order name: Labs collected and sent; Complete Time: 09:24 [facility] Administered Medications: 09:30 Drug: Ondansetron IVP 4 mg IVP once; over 2 minutes Route: IVP; Site: right wrist; aa5 09:40 Follow up: Response: No adverse reaction aa5 09:30 Drug: NS 0.9% IV 1000 ml IV at 1 bolus Per protocol; to be given as a bolus over 60 aa5 minutes Route: IV; Rate: 1 bolus; Site: right wrist; 10:32 Follow up: IV Status: Completed infusion; IV Intake: 1000ml aa5 09:42 Not Given (Physician Discretion): [id number] mg IVP once; dilute with 10 mL 0.9% aa5 NaCl; give over 2 minutes 09:57 Drug: morphine IVP or IV 4 mg IVP once over 4 mins Route: IVP; Infused Over: 4 mins; jb4 Site: right wrist; 10:32 Follow up: Response: Adverse reaction, Physician notified; Pain is decreased; RASS: 4 Alert and Calm (0) 09:57 Drug: diphenhydrAMINE IVP 25 mg IVP once Route: IVP; Site: right wrist; jb4 10:32 Follow up: Response: No adverse reaction jb4 10:32 Drug: diphenhydrAMINE IVP 25 mg IVP once Route: IVP; Site: right wrist; jb4 11:02 Follow up: Response: No adverse reaction aa5 11:02 Drug: morphine IVP or IV 4 mg IVP once over 4 mins Route: IVP; Infused Over: 4 mins; aa5 Site: right wrist; 11:06 Follow up: Response: No adverse reaction aa5 11:18 Follow up: hives noted to right forearm, pt c/o itching, MD was notified. aa5 11:23 Drug: MethylPrednisoLONE IVP 125 mg IVP once Route: IVP; Site: right wrist; aa5 11:32 Follow up: Response: No adverse reaction; No adverse reaction, hives have resolved. aa5 11:24 Drug: Famotidine IVP 20 mg IVP once; dilute with 10 mL 0.9% NaCl; give over 2 minutes aa5 Route: IVP; Site: right wrist; 11:32 Follow up: Hives have resolved. aa5 Disposition Summary: 04/03/24 11:02 Discharge Ordered Notes: Location: Home rudolph Problem: new rudolph Symptoms: have improved rudolph Condition: Stable rudolph Diagnosis - Vomiting rudolph - Epigastric abdominal tenderness rudolph - Diarrhea, unspecified rudolph - Abdominal pain, Generalized rudolph Followup: rudolph - With: Private Physician - When: 1 - 2 days - Reason: Recheck today's complaints, Continuance of care, Re-evaluation by your physician Followup: rudolph - With: Sandrita Colón MD - When: 1 - 2 days - Reason: Recheck today's complaints, Continuance of care, Re-evaluation by your physician Discharge Instructions: - Discharge Summary Sheet rudolph - Abdominal Pain, Adult rudolph - Food Choices to Help Relieve Diarrhea, Adult rudolph - Diarrhea, Adult rudolph - Abdominal Pain, Adult, Fumm-ju-[id number] rudolph - Diarrhea, Adult, [id number] rudolph - Vomiting, Adult rudolph Forms: - Medication Reconciliation Form [facility] - Antibiotic Education [facility] - Prescription Opioid Use [facility] - Patient Portal Instructions [facility] - Leadership Thank You Letter [facility] Prescriptions: - Carafate 1 gram Oral tablet - take 1 tablet ORAL route 4 times per day take on an empty stomach, beginning on rudolph waking and last dose at bedtime; 40 tablet; Refills: 0, Product Selection Permitted - dicyclomine 10 mg/5 mL Oral solution - take 10 milliliters ORAL route 4 times per day; 180 milliliter; Refills: 0, [facility] Product Selection Permitted Signatures: Dispatcher [employer] Justin Pinto MD MD cha Calderon, Audri, RN RN aa5 Violeta Dubois, RN RN ss Joss Moffett, RN RN jb4
[2024-04-03] MEDS ORDERED: METHYLPREDNISOLONE 125 MG INJ ONE (11:19)
[2024-04-03 13:35] VITALS: TEMP 98.4; O2SAT 100
[2024-04-03 13:52] VITALS: BP 124/89
== END 2024-04-03 11:32 | disposition home or self-care (01) ==
LOC: ER 08:14
DX: R11.10 Vomiting, unspecified (principal); R10.816 Epigastric abdominal tenderness; R19.7 Diarrhea, unspecified; R10.84 Generalized abdominal pain; Z87.442 Personal history of urinary calculi; Z28.310 Unvaccinated for COVID-19
CPT/HCPCS: 96361; 85025; 81001; 36415; 81025; 83690; 80053; 96375; 96374; 99284; J1200 ×2; J2919; J2405; J7030

== ENCOUNTER 2024-04-10 08:40 | Emergency (ER) | payer OTHER, SELFPAY ==
--- OUTSIDE RECORDS SUMMARY | 2024-04-10 08:42 | XMS REPORT | Continuity of Care Document ---
Author Name Unknown Address [address] [facility] [address] [place], [place] [id number] [place] [address] [facility] [address] [facility] [address] [place] [address] Care Team Providers Care Rn Review Name Role Phone ERICKSON_R Attending Clinician Unavailable ERICKSON_R Admitting Clinician Unavailable Encounters Start Date/Time End Date/Time Encounter Type Admission Type Attending Clinicians Care Facility Care Department Encounter ID Source 2023-12-23 15:39:53 2023-12-23 15:39:53 Outpatient [facility] [id number] [facility] 2023-12-08 14:51:46 2023-12-08 14:51:46 Outpatient [facility] [id number] [facility] 2023-08-04 14:56:23 2023-08-04 14:56:23 Outpatient [facility]FA [id number] [facility] 2023-06-27 14:47:45 2023-06-27 14:47:45 Outpatient [facility]FA [id number] [facility] 2023-02-14 12:59:23 2023-02-14 12:59:23 Outpatient [facility]FA [id number] [facility] 2023-02-06 18:19:02 2023-02-06 18:19:02 Outpatient [facility] SFA [id number] [facility] 2023-01-30 00:00:00 2023-01-30 00:00:00 Outpatient ERICKSON_R [facility] [id number] [facility] 2022-12-28 00:00:00 2022-12-28 00:00:00 Outpatient ERICKSON_R [facility] [id number] 2022-12-14 18:37:13 2022-12-14 18:37:13 Outpatient [facility] SFA [id number] [facility] 2022-12-13 00:00:00 2022-12-13 00:00:00 Outpatient ERICKSON_R [facility] [id number] 2022-11-18 10:08:00 2022-11-18 10:08:00 Outpatient [facility] SFA [id number] [facility] 2022-11-09 15:26:18 2022-11-09 15:26:18 Outpatient [facility] SFA [id number] [facility]
[2024-04-10] MEDS ORDERED: FAMOTIDINE 20 MG/2 ML VIAL IV ONE (08:58)
[2024-04-10] MEDS ORDERED: NA CHLORIDE 0.9% 1,000 ML ONE (08:58)
[2024-04-10] MEDS ORDERED: ONDANSETRON 4 MG/2 ML VIAL ONE (08:58)
[2024-04-10 09:03] LABS: Specific Gravity 1.008 (1.005-1.030)
[2024-04-10 09:05] LABS: Specific Gravity 1.008 (1.005-1.030); Urine Bacteria <20 /HPF (<20); Urine Bilirubin NEGATIVE (Negative); Urine Blood 3+ (OVER) (Negative); Urine Clarity Extremely Turbid (Clear); Urine Color Colorless (Yellow); Urine Culture Reflex Order REFLEXED; Urine Glucose NEGATIVE (Negative); Urine Ketones NEGATIVE (Negative); Urine Microscopic Reflex YN ORDER UMIC; Urine Mucus Slight /HPF (None Seen); Urine Nitrite NEGATIVE (Negative); Urine Protein TRACE (Negative); Urine Urobilinogen Normal (Normal); Urine WBC 20-50 /HPF (<5); Urine pH 5.5 (5.0-7.0)
[2024-04-10 09:36] LABS: Absolute Eosinophils 0.5 K/uL (0-0.5); Absolute Lymphocytes (CBC) 1.7 K/uL (0.7-4.9); Absolute Monocytes 0.3 K/uL (0.1-1.3); Absolute Neutrophil 4.8 K/uL (1.8-8.0); Basophils % 0.6 % (0-1.3); Eosinophils % 7.3 % (0-4.4); Hematocrit 39.6 % (36.0-45.0); Hemoglobin 13.1 g/dL (12.0-15.0); Lymphocytes % 23.3 % (15.3-44.8); MCH 29.2 pg (27.0-35.0); MCV 88.3 fL (80-100); MPV 7.5 fL (7.6-11.3); Monocytes % 4.5 % (3.3-12.3); Neutrophils % 64.3 % (41.7-73.7); Platelets 345 thou/uL (152-406); RBC Red Blood Cell Count 4.48 M/uL (3.86-4.86)
[2024-04-10 09:49] LABS: Albumin 3.5 g/dL (3.4-5.0); Albumin/Globulin Ratio 0.9 (1.1-1.8); Anion Gap 9.5 mEq/L (5.0-15.0); Bilirubin Total 0.4 mg/dL (0.2-1.0); Globulin 3.8 g/dL (2.3-3.5); Potassium 3.5 mEq/L (3.5-5.1); Protein, Total 7.3 g/dL (6.4-8.2)
[2024-04-10] MEDS ORDERED: NA CHLORIDE 0.9% 100 ML ONE (10:22)
[2024-04-10] MEDS ORDERED: CEFTRIAXONE 1000 MG/VIAL ONE (10:22)
[2024-04-10] MEDS ORDERED: DIPHENHYDRAMINE 50 MG/ML VIAL ONE ×2 (10:22→11:24)
--- NOTE | 2024-04-10 11:21 | EDPHYS ---
Physician Documentation [facility] Name: Natanael Dyson Age: 29 yrs Sex: Female : 1995 Arrival Date: 04/10/2024 Time: 08:40 Bed 5 Private MD: ROMAN Physician Justin Estrella HPI: 04/10 11:13 This 29 yrs old Female presents to ER via Ambulatory with complaints of rudolph Abdominal Pain, Vomiting/Diarrhea. 11:13 The patient presents to the emergency department with nausea, vomiting, abdominal pain, rudolph of the epigastric area. Onset: The symptoms/episode began/occurred 3 day(s) ago. Possible causes: flare up of bowel problem. The symptoms are aggravated by movement, pressure, food , The symptoms are alleviated by nothing. Associated signs and symptoms: The patient has no apparent associated signs or symptoms. Severity of symptoms: At their worst the symptoms were moderate in the emergency department the symptoms are unchanged. Historical: - Allergies: 08:49 Compazine; ha1 08:49 Haldol; ha1 08:49 Iodine; ha1 08:49 Morphine; ha1 08:49 NSAIDS NON STEROIDAL ANTI INFLAMMATORY DRUG; ha1 08:49 Reglan; ha1 08:49 Toradol; ha1 - PMHx: 08:49 Anxiety; breast cancer; depressive disorder; Kidney stone; nephritis; ha1 - PSHx: 08:49 Cholecystectomy; Ligation of fallopian tube; ha1 - Immunization history:: Adult Immunizations up to date. - Infectious Disease History:: Denies. - Social history:: Smoking status: Patient denies any tobacco usage or history of. ROS: 11:13 Constitutional: Negative for fever, chills, and weight loss, Eyes: Negative for injury, rudolph pain, redness, and discharge, ENT: Negative for injury, pain, and discharge, Neck: Negative for injury, pain, and swelling, Cardiovascular: Negative for chest pain, palpitations, and edema, Respiratory: Negative for shortness of breath, cough, wheezing, and pleuritic chest pain, Back: Negative for injury and pain, : Negative for injury, bleeding, discharge, and swelling, MS/Extremity: Negative for injury and deformity, Skin: Negative for injury, rash, and discoloration, Neuro: Negative for headache, weakness, numbness, tingling, and seizure, Psych: Negative for depression, anxiety, suicide ideation, homicidal ideation, and hallucinations, Allergy/Immunology: Negative for hives, rash, and allergies, Endocrine: Negative for neck swelling, polydipsia, polyuria, polyphagia, and marked weight changes, Hematologic/Lymphatic: Negative for swollen nodes, abnormal bleeding, and unusual bruising, 11:13 Abdomen/GI: Positive for abdominal pain, nausea and vomiting, abdominal cramps, abdominal distension, of the epigastric area, Exam: 11:15 Constitutional: This is a well developed, well nourished patient who is awake, alert, rudolph and in no acute distress. Head/Face: Normocephalic, atraumatic. Eyes: Pupils equal round and reactive to light, extra-ocular motions intact. Lids and lashes normal. Conjunctiva and sclera are non-icteric and not injected. Cornea within normal limits. Periorbital areas with no swelling, redness, or edema. ENT: Nares patent. No nasal discharge, no septal abnormalities noted. Tympanic membranes are normal and external auditory canals are clear. Oropharynx with no redness, swelling, or masses, exudates, or evidence of obstruction, uvula midline. Mucous membranes moist. Neck: Trachea midline, no thyromegaly or masses palpated, and no cervical lymphadenopathy. Supple, full range of motion without nuchal rigidity, or vertebral point tenderness. No Meningismus. Chest/axilla: Normal chest wall appearance and motion. Nontender with no deformity. No lesions are appreciated. Cardiovascular: Regular rate and rhythm with a normal S1 and S2. No gallops, murmurs, or rubs. Normal PMI, no JVD. No pulse deficits. Respiratory: Lungs have equal breath sounds bilaterally, clear to auscultation and percussion. No rales, rhonchi or wheezes noted. No increased work of breathing, no retractions or nasal flaring. Back: No spinal tenderness. No costovertebral tenderness. Full range of motion. Skin: Warm, dry with normal turgor. Normal color with no rashes, no lesions, and no evidence of cellulitis. MS/ Extremity: Pulses equal, no cyanosis. Neurovascular intact. Full, normal range of motion. Neuro: Awake and alert, GCS 15, oriented to person, place, time, and situation. Cranial nerves II-XII grossly intact. Motor strength 5/5 in all extremities. Sensory grossly intact. Cerebellar exam normal. Normal gait. Psych: Awake, alert, with orientation to person, place and time. Behavior, mood, and affect are within normal limits. 11:15 Abdomen/GI: Inspection: abdomen appears normal, Bowel sounds: normal, Liver: no appreciated palpable abnormalities, Vital Signs: 08:54 BP 139 / 92; Pulse 106; Resp 17; Temp 98.7(O); Pulse Ox 100% on R/A; Pain 9/10; ha1 11:33 BP 129 / 89; Pulse 95; Resp 16; Pulse Ox 100% ; bp 08:54 Pain Scale: Adult ha1 MDM: 08:49 Medical Screening Exam initiated [facility] 11:18 Differential diagnosis: Nonspecific abd pain, gastritis, pancreatitis, viral rudolph gastroenteritis, gastroenteritis, Cholelithiasis. Data reviewed: vital signs, nurses notes, lab test result(s). Consideration of Admission/Observation Escalation of care including admission/observation considered. I considered the following discharge prescriptions or medication management in the emergency department Medications were administered in the Emergency Department. See MAR. Historians other than the Patient: pt well informed. Care significantly affected by the following chronic conditions: Cancer, anxiety, h pylori, depression, nephritis. 04/10 08:51 Order name: CBC with Diff; Complete Time: 10:17 [facility] 04/10 08:51 Order name: CMP; Complete Time: 10:17 [facility] 04/10 08:51 Order name: Lipase; Complete Time: 10:17 [facility] 04/10 08:51 Order name: Test, Urine; Complete Time: 10:17 [facility] 04/10 08:51 Order name: Urinalysis w/ reflexes; Complete Time: 10:17 [facility] 04/10 09:08 Order name: Urine Culture [facility] 04/10 08:51 Order name: IV Saline Lock; Complete Time: 09:19 [facility] 04/10 08:51 Order name: Labs collected and sent; Complete Time: 09:20 [facility] Administered Medications: 09:20 Drug: Ondansetron IVP 4 mg IVP once; over 2 minutes Route: IVP; Site: right forearm; bp 11:33 Follow up: Response: No adverse reaction bp 09:26 Drug: Famotidine IVP 20 mg IVP once; dilute with 10 mL 0.9% NaCl; give over 2 minutes bp Route: IVP; Site: right forearm; 11:34 Follow up: Response: No adverse reaction bp 09:26 Drug: NS 0.9% IV 1000 ml IV at 1 bolus Per protocol; to be given as a bolus over 60 bp minutes Route: IV; Rate: 1 bolus; Site: right forearm; 11:34 Follow up: IV Status: Completed infusion; IV Intake: 1000ml bp 10:27 Drug: Rocephin IV 1 grams IV at per protocol once; Given slow IV push per pharmacy bp instructions Route: IV; Rate: per protocol; Site: right forearm; 11:54 Follow up: IV Status: Completed infusion; IV Intake: 100ml bp 10:27 Drug: diphenhydrAMINE IVP 25 mg IVP once Route: IVP; Site: right forearm; bp 11:26 Follow up: Response: No adverse reaction bp 11:32 Drug: diphenhydrAMINE IVP 25 mg IVP once Route: IVP; Site: right forearm; bp 11:34 Follow up: Response: No adverse reaction bp 11:33 Drug: GI Cocktail with - (Maalox PO 30 ml, Lidocaine Mucous Membrane 2 % 20 bp ml, Phenobarbital-Belladonna PO 10 ml) PO once Route: PO; 11:34 Follow up: Response: No adverse reaction bp 11:33 Drug: Pantoprazole IVP 40 mg IVP once Route: IVP; Site: right forearm; bp 11:34 Follow up: Response: No adverse reaction bp Disposition Summary: 04/10/24 11:21 Discharge Ordered Notes: Location: Home rudolph Problem: new rudolph Symptoms: have improved rudolph Condition: Stable rudolph Diagnosis - Acute gastritis rudolph - Functional dyspepsia rudolph - Epigastric abdominal tenderness rudolph Followup: rudolph - With: Private Physician - When: 2 - 3 days - Reason: Recheck today's complaints, Continuance of care, Re-evaluation by your physician Followup: rudolph - With: Sandrita Colón MD - When: 2 - 3 days - Reason: Recheck today's complaints, Re-evaluation by your physician Discharge Instructions: - Discharge Summary Sheet rudolph - Abdominal Pain, Adult rudolph - Gastritis, Adult rudolph - Gastroesophageal Reflux Disease, Adult rudolph - Gastritis, Adult, [id number] rudolph - Abdominal Pain, Adult, [id number]-[id number] rudolph - Gastroesophageal Reflux Disease, Adult, [id number]-[id number] rudolph Forms: - Medication Reconciliation Form [facility] - Antibiotic Education [facility] - Prescription Opioid Use [facility] - Patient Portal Instructions [facility] - Leadership Thank You Letter [facility] Prescriptions: - Carafate 100 mg/mL Oral suspension - take 10 milliliter ORAL route 4 times per day 30 minutes before each meal, and rudolph prior to bedtime; 300 milliliter; Refills: 0, Product Selection Permitted - ondansetron 4 mg Oral Tablet,disintegrating - take 1 tablet ORAL route every 8 hours for 5 days as needed for nausea and rudolph vomiting; 20 tablet; Refills: 0, Product Selection Permitted - Protonix 40 mg Oral tablet, delayed release (enteric coated) - take 1 tablet ORAL route every 12 hours; 42 tablet; Refills: 0, Product rudolph Selection Permitted - dicyclomine 10 mg/5 mL Oral solution - take 10 milliliters ORAL route 4 times per day; 200 milliliter; Refills: 0, [facility] Product Selection Permitted Signatures: Dispatcher [employer] Justin Pinto MD MD cha Peltier, Brian RN Zainab Adrian RN RN ha1
--- NOTE | 2024-04-10 11:21 | ER ---
Nurse's Notes [facility] Name: Natanael Dyson Age: 29 yrs Sex: Female : 1995 Arrival Date: 04/10/2024 Time: 08:40 Bed 5 Private MD: Diagnosis: Acute gastritis;Functional dyspepsia;Epigastric abdominal tenderness Presentation: 04/10 08:46 Chief complaint: Patient states: N/V/D and abd pain that has been ongoing, but worse ha1 since yesterday after eating thanksgiving food. Coronavirus screen: Client denies travel out of the [place] in the last 14 days. Ebola Screen: Patient denies exposure to infectious person. Patient denies travel to an Ebola-affected area in the 21 days before illness onset. Initial Sepsis Screen: Does the patient meet any 2 criteria? No. Patient's initial sepsis screen is negative. Does the patient have a suspected source of infection? No. Patient's initial sepsis screen is negative. Risk Assessment: Do you want to hurt yourself or someone else? Patient reports no desire to harm self or others. Onset of symptoms is unknown. 08:46 Method Of Arrival: Ambulatory ha1 08:46 Acuity: THIERNO 3 ha1 Triage Assessment: 09:00 General: Appears in no apparent distress. uncomfortable, Behavior is cooperative, bp appropriate for age, anxious. Pain: Complains of pain in abdomen. EENT: No deficits noted. Neuro: No deficits noted. Cardiovascular: No deficits noted. Respiratory: No deficits noted. GI: Reports lower abdominal pain. : No signs and/or symptoms were reported regarding the genitourinary system. Derm: No deficits noted. Musculoskeletal: No deficits noted. Historical: - Allergies: 08:49 Compazine; ha1 08:49 Haldol; ha1 08:49 Iodine; ha1 08:49 Morphine; ha1 08:49 NSAIDS NON STEROIDAL ANTI INFLAMMATORY DRUG; ha1 08:49 Reglan; ha1 08:49 Toradol; ha1 - PMHx: 08:49 Anxiety; breast cancer; depressive disorder; Kidney stone; nephritis; ha1 - PSHx: 08:49 Cholecystectomy; Ligation of fallopian tube; ha1 - Immunization history:: Adult Immunizations up to date. - Infectious Disease History:: Denies. - Social history:: Smoking status: Patient denies any tobacco usage or history of. Screenin:[address] [facility] ED Fall Risk Assessment (Adult) History of falling in the last 3 months, bp including since admission No falls in past 3 months (0 pts) Confusion or Disorientation No (0 pts) Intoxicated or Sedated No (0 pts) Impaired Gait No (0 pts) Mobility Assist Device Used No (0 pt) Altered Elimination No (0 pt) Score/Fall Risk Level 0 - 2 = Low Risk Oriented to surroundings. Abuse screen: Denies threats or abuse. Denies injuries from another. Nutritional screening: No deficits noted. Tuberculosis screening: No symptoms or risk factors identified. Assessment: 09:00 General: Appears in no apparent distress. uncomfortable, Behavior is cooperative, bp appropriate for age, anxious. 11:54 GI: Bowel sounds present X 4 quads. Abd is soft X 4 quads. bp Vital Signs: 08:54 BP 139 / 92; Pulse 106; Resp 17; Temp 98.7(O); Pulse Ox 100% on R/A; Pain 9/10; ha1 11:33 BP 129 / 89; Pulse 95; Resp 16; Pulse Ox 100% ; bp 08:54 Pain Scale: Adult [facility] ED Course: 08:42 Patient arrived in ED. im 08:48 Justin Estrella MD is Attending Physician. rudolph 08:49 Triage completed. ha1 08:49 Arm band placed on right wrist. ha1 08:58 Urine collected: clean catch specimen, cloudy, sediment noted. mb4 08:58 Urinalysis w/ reflexes Sent. mb4 08:58 Test, Urine Sent. mb4 09:00 Patient has correct armband on for positive identification. bp 09:03 Jayy Wooten, RN is Primary Nurse. bp 09:20 Initial lab(s) drawn, by hi, sent to lab. Inserted saline lock: 24 gauge in right bp forearm, using aseptic technique. Blood collected. Flushed with 10 mL NS. 11:20 Sandrita Colón MD is Referral Physician. rudolph 11:53 No provider procedures requiring assistance completed. IV discontinued, intact, bp bleeding controlled, No redness/swelling at site. Pressure dressing applied. Administered Medications: 09:20 Drug: Ondansetron IVP 4 mg IVP once; over 2 minutes Route: IVP; Site: right forearm; bp 11:33 Follow up: Response: No adverse reaction bp 09:26 Drug: Famotidine IVP 20 mg IVP once; dilute with 10 mL 0.9% NaCl; give over 2 minutes bp Route: IVP; Site: right forearm; 11:34 Follow up: Response: No adverse reaction bp 09:26 Drug: NS 0.9% IV 1000 ml IV at 1 bolus Per protocol; to be given as a bolus over 60 bp minutes Route: IV; Rate: 1 bolus; Site: right forearm; 11:34 Follow up: IV Status: Completed infusion; IV Intake: 1000ml bp 10:27 Drug: Rocephin IV 1 grams IV at per protocol once; Given slow IV push per pharmacy bp instructions Route: IV; Rate: per protocol; Site: right forearm; 11:54 Follow up: IV Status: Completed infusion; IV Intake: 100ml bp 10:27 Drug: diphenhydrAMINE IVP 25 mg IVP once Route: IVP; Site: right forearm; bp 11:26 Follow up: Response: No adverse reaction bp 11:32 Drug: diphenhydrAMINE IVP 25 mg IVP once Route: IVP; Site: right forearm; bp 11:34 Follow up: Response: No adverse reaction bp 11:33 Drug: GI Cocktail with - (Maalox PO 30 ml, Lidocaine Mucous Membrane 2 % 20 bp ml, Phenobarbital-Belladonna PO 10 ml) PO once Route: PO; 11:34 Follow up: Response: No adverse reaction bp 11:33 Drug: Pantoprazole IVP 40 mg IVP once Route: IVP; Site: right forearm; bp 11:34 Follow up: Response: No adverse reaction bp Medication: 09:00 VIS not applicable for this client. bp Intake: 11:34 IV: 1000ml; Total: 1000ml. bp 11:54 IV: 100ml; Total: 1100ml. bp Outcome: 11:21 Discharge ordered by . rudolph 11:53 Discharged to home ambulatory, bp 11:53 Condition: stable 11:53 Discharge instructions given to patient, Instructed on discharge instructions, follow up and referral plans. medication usage, Demonstrated understanding of instructions, follow-up care, medications, Prescriptions given X 4, 11:54 Patient left the ED. bp Signatures: Justin Estrella MD MD cha Peltier, Brian, ROSEY RN bp Li Rich4 Zainab Escamilla, ROSEY RN ha1 Margie Nettles
[2024-04-10] MEDS ORDERED: PANTOPRAZOLE 40 MG INJ ONE (11:24)
[2024-04-10] MEDS ORDERED: MAGNES/ALUMIN/SIMET 30ML UCUP ONE (11:24)
[2024-04-10] MEDS ORDERED: LIDOCAINE VISCOUS 2% 10ML ORAL SOLN ONE (11:25)
[2024-04-10] MEDS ORDERED: DIPHENHYDRAMINE 12.5MG/5ML LIQ ONE (11:28)
[2024-04-10 12:29] VITALS: TEMP 98.7; O2SAT 100
[2024-04-10 12:35] VITALS: BP 129/89
== END 2024-04-10 11:54 | disposition home or self-care (01) ==
LOC: ER 08:40
DX: K29.00 Acute gastritis without bleeding (principal); K30 Functional dyspepsia
CPT/HCPCS: 87088; 85025; 81001; 87086; 36415; 81025; 83690; 80053; Q0163; J1200 ×2; J2470; J2405; J7030; J0696

== ENCOUNTER 2024-04-19 06:53 | Emergency (ER) | payer OTHER ==
--- OUTSIDE RECORDS SUMMARY | 2024-04-19 06:56 | XMS REPORT | Continuity of Care Document ---
Author Name Unknown Address [address] [facility] [address] [place], [place] [id number] [place] [address] [facility] Address [address] [facility] [address] [place] [address] Care Team Providers Care Life Skills Teacher Name Role Phone ERICKSON_R Attending Clinician Unavailable ERICKSON_R Admitting Clinician Unavailable Encounters Start Date/Time End Date/Time Encounter Type Admission Type Attending Clinicians Care Facility Care Department Encounter ID Source 2023-12-23 15:39:53 2023-12-23 15:39:53 Outpatient SFA SFA [id number] [facility] 2023-12-08 14:51:46 2023-12-08 14:51:46 Outpatient SFA SFA [id number] [facility] 2023-08-04 14:56:23 2023-08-04 14:56:23 Outpatient SFA SFA [id number] [facility] 2023-06-27 14:47:45 2023-06-27 14:47:45 Outpatient SFA SFA [id number] [facility] 2023-02-14 12:59:23 2023-02-14 12:59:23 Outpatient SFA SFA [id number] [facility] 2023-02-06 18:19:02 2023-02-06 18:19:02 Outpatient SFA SFA [id number] [facility] 2023-01-30 00:00:00 2023-01-30 00:00:00 Outpatient ERICKSON_R [facility] [id number] [facility] 2022-12-28 00:00:00 2022-12-28 00:00:00 Outpatient ERICKSON_R [facility] [id number] 2022-12-14 18:37:13 2022-12-14 18:37:13 Outpatient SFA SFA [id number] [facility] 2022-12-13 00:00:00 2022-12-13 00:00:00 Outpatient ERICKSON_R [facility] [id number] 2022-11-18 10:08:00 2022-11-18 10:08:00 Outpatient SFA SFA [id number] [facility] 2022-11-09 15:26:18 2022-11-09 15:26:18 Outpatient SFA SFA [id number] [facility]
[2024-04-19 07:29] LABS: Specific Gravity 1.022 (1.005-1.030); Sqamous Epithelial 20-50 /HPF (None Seen); Urine Bacteria <20 /HPF (<20); Urine Bilirubin NEGATIVE (Negative); Urine Blood Trace (Negative); Urine Clarity Extremely Turbid (Clear); Urine Color Light-Yellow (Yellow); Urine Culture Reflex Order NOT NEEDED; Urine Glucose NEGATIVE (Negative); Urine Ketones NEGATIVE (Negative); Urine Micro Reflex YN NO BILL MICROSCOPIC; Urine Mucus Slight /HPF (None Seen); Urine Nitrite NEGATIVE (Negative); Urine Protein TRACE (Negative); Urine RBC 21-50 /HPF (None Seen); Urine Urobilinogen 1+ (Normal); Urine WBC <5 /HPF (<5); Urine pH 7.5 (5.0-7.0)
--- NOTE | 2024-04-19 07:38 | ER ---
Nurse's Notes [facility] Name: Natanael Dyson Age: 29 yrs Sex: Female : 1995 Arrival Date: 04/19/2024 Time: 06:53 Bed 19 Private MD: Diagnosis: Low back pain, possible UTI, possible kidney stone, patient elopement Presentation: 04/19 07:01 Chief complaint: Chief complaint: Patient states: lower back pain x 2 days and burning aa5 with urination x 4 days ago. Pt also reports nausea, denies vomiting. 07:01 Coronavirus screen: At this time, the client does not indicate any symptoms associated aa5 with coronavirus-19. Ebola Screen: Patient denies travel to an Ebola-affected area in the 21 days before illness onset. Initial Sepsis Screen: Does the patient meet any 2 criteria? HR > 90 bpm. Does the patient have a suspected source of infection? No. Patient's initial sepsis screen is negative. Risk Assessment: Do you want to hurt yourself or someone else? Patient reports no desire to harm self or others. Onset of symptoms was April 2024. 07:01 Acuity: THIERNO 3 aa5 07:01 Method Of Arrival: Ambulatory aa5 Historical: - Allergies: 07:01 Compazine; aa5 07:01 Haldol; aa5 07:01 Iodine; aa5 07:01 Morphine; aa5 07:01 NSAIDS NON STEROIDAL ANTI INFLAMMATORY DRUG; aa5 07:01 Reglan; aa5 07:01 Toradol; aa5 - PMHx: 07:01 Anxiety; breast cancer; depressive disorder; Kidney stone; nephritis; aa5 - PSHx: 07:01 Cholecystectomy; Ligation of fallopian tube; aa5 Screenin:05 [facility] ED Fall Risk Assessment (Adult) History of falling in the last 3 months, aa5 including since admission No falls in past 3 months (0 pts) Confusion or Disorientation No (0 pts) Intoxicated or Sedated No (0 pts) Impaired Gait No (0 pts) Mobility Assist Device Used No (0 pt) Altered Elimination No (0 pt) Score/Fall Risk Level 0 - 2 = Low Risk Oriented to surroundings, Maintained a safe environment, Educated pt \T\ family on fall prevention, incl call for assistance when getting out of bed. Abuse screen: Denies threats or abuse. Nutritional screening: No deficits noted. Tuberculosis screening: No symptoms or risk factors identified. Assessment: 07:01 General: Appears comfortable, Behavior is calm, cooperative. Pain: Complains of pain in aa5 left low back and right low back Pain currently is 9 out of 10 on a pain scale. Neuro: Level of Consciousness is awake, alert, obeys commands, Oriented to person, place, time, situation. Cardiovascular: Patient's skin is warm and dry. Respiratory: Airway is patent Respiratory effort is even, unlabored, Respiratory pattern is regular, symmetrical. GI: Abdomen is non-distended, Bowel sounds present X 4 quads. Abd is soft and non tender X 4 quads. Reports nausea, Patient currently denies vomiting. : Reports burning with urination. EENT: No signs and/or symptoms were reported regarding the EENT system. Derm: Skin is pink, warm \T\ dry. Musculoskeletal: Range of motion: intact in all extremities. 07:20 Reassessment: Pt was witnessed walking out of ER by ER staff, was notified. . aa5 Vital Signs: 07:01 BP 132 / 83; Pulse 111; Resp 18 S; Temp 98.4(O); Pulse Ox 100% on R/A; aa5 ED Course: 06:56 Patient arrived in ED. gm2 07:01 Paula Mark MD is Attending Physician. sp3 07:01 Arm band placed on Patient placed in an exam room, on a stretcher. aa5 07:01 Patient has correct armband on for positive identification. Bed in low position. Call aa5 light in reach. Side rails up X 1. 07:12 Jaycee Brewer RN is Primary Nurse. aa5 07:20 No provider procedures requiring assistance completed. Patient did not have IV access aa5 during this emergency room visit. 08:11 Triage completed. aa5 Administered Medications: No medications were administered Medication: 07:01 VIS not applicable for this client. aa5 Outcome: 07:20 Patient left the ED. aa5 07:20 Eloped from patient exam room, after seeing physician aa5 07:20 Condition: stable 07:20 Instructed on N/A Signatures: Jaycee Brewer RN RN aa5 Paula Mark MD MD sp3 Katarzyna Kay gm2 Corrections: (The following items were deleted from the chart) 08:11 07:01 Chief complaint: aa5 aa5 08:18 07:40 Patient left the ED. aa5 aa5
--- NOTE | 2024-04-19 07:38 | EDPHYS ---
Physician Documentation [facility] Name: Natanael Dyson Age: 29 yrs Sex: Female : 1995 Arrival Date: 04/19/2024 Time: 06:53 Bed 19 Private MD: ED Physician Paula Mark HPI: 04/19 07:34 This 29 yrs old Female presents to ER via Unassigned with complaints of Possible Kidney sp3 Stone, Low Back Pain. 07:34 29-year-old female with PMH above including kidney stones now presents to the ED with sp3 low back pain and concerns of possible infection. Last several CT scans demonstrated 3 mm stone without other formed stones. Patient denies any other symptoms including fever, chest pain, upper back pain, shortness of breath, syncope, near syncope, or any other signs or symptoms on ROS at this time. She denies any MALLET CUTTER symptoms and denies .. Historical: - Allergies: 07:01 Compazine; aa5 07:01 Haldol; aa5 07:01 Iodine; aa5 07:01 Morphine; aa5 07:01 NSAIDS NON STEROIDAL ANTI INFLAMMATORY DRUG; aa5 07:01 Reglan; aa5 07:01 Toradol; aa5 - PMHx: 07:01 Anxiety; breast cancer; depressive disorder; Kidney stone; nephritis; aa5 - PSHx: 07:01 Cholecystectomy; Ligation of fallopian tube; aa5 ROS: 07:35 Constitutional: Negative for fever, chills, and weight loss, Eyes: Negative for injury, sp3 pain, redness, and discharge, Neck: Negative for injury, pain, and swelling, Cardiovascular: Negative for chest pain, palpitations, and edema, Respiratory: Negative for shortness of breath, cough, wheezing, and pleuritic chest pain, Back: Negative for injury and pain, MS/Extremity: Negative for injury and deformity, Skin: Negative for injury, rash, and discoloration, Neuro: Negative for headache, weakness, numbness, tingling, and seizure, Psych: Negative for depression, anxiety, suicide ideation, homicidal ideation, and hallucinations, Allergy/Immunology: Negative for hives, rash, and allergies, Endocrine: Negative for neck swelling, polydipsia, polyuria, polyphagia, and marked weight changes, Hematologic/Lymphatic: Negative for swollen nodes, abnormal bleeding, and unusual bruising, 07:35 All other systems are negative, Exam: 07:36 Constitutional: This is a well developed, well nourished patient who is awake, alert, sp3 and in no acute distress. Head/Face: Normocephalic, atraumatic. Eyes: Pupils equal round and reactive to light, extra-ocular motions intact. Lids and lashes normal. Conjunctiva and sclera are non-icteric and not injected. Cornea within normal limits. Periorbital areas with no swelling, redness, or edema. Neck: Trachea midline, no thyromegaly or masses palpated, and no cervical lymphadenopathy. Supple, full range of motion without nuchal rigidity, or vertebral point tenderness. No Meningismus. Chest/axilla: Normal chest wall appearance and motion. Nontender with no deformity. No lesions are appreciated. Respiratory: Lungs have equal breath sounds bilaterally, clear to auscultation and percussion. No rales, rhonchi or wheezes noted. No increased work of breathing, no retractions or nasal flaring. Abdomen/GI: Soft, non-tender, with normal bowel sounds. No distension or tympany. No guarding or rebound. No evidence of tenderness throughout. Skin: Warm, dry with normal turgor. Normal color with no rashes, no lesions, and no evidence of cellulitis. MS/ Extremity: Pulses equal, no cyanosis. Neurovascular intact. Full, normal range of motion. Neuro: Awake and alert, GCS 15, oriented to person, place, time, and situation. Cranial nerves II-XII grossly intact. Motor strength 5/5 in all extremities. Sensory grossly intact. Cerebellar exam normal. Normal gait. Psych: Awake, alert, with orientation to person, place and time. Behavior, mood, and affect are within normal limits. 07:36 Cardiovascular: Rate: tachycardic, Vital Signs: 07:01 BP 132 / 83; Pulse 111; Resp 18 S; Temp 98.4(O); Pulse Ox 100% on R/A; aa5 MDM: 07:06 Medical Screening Exam initiated sp3 07:36 Data reviewed: vital signs, nurses notes, old medical records, lab test result(s). ED sp3 course: 29-year-old female with flank and low back pain. Differential diagnosis includes UTI/pyelonephritis spectrum, ureterolithiasis/kidney stone spectrum, MALLET CUTTER pathology, abdominal pathology. Given multiple recent workups, I told patient we will start with urinalysis and if positive add on other test as indicated. Urinalysis comes back with red blood cells and oxalate crystals however when further workup was in process, patient decided to leave on her own volition without telling anybody. Unknown reason why and if patient returns we will continue further workup of CT abdomen pelvis, labs and ketorolac IV for pain control.. 04/19 07:14 Order name: SARAH BETH; Complete Time: 07:34 sp3 Administered Medications: No medications were administered Disposition Summary: 04/19/24 07:38 Eloped Notes: Disposition: after being seen by provider sp3 Reason: unknown sp3 Diagnosis - Low back pain, possible UTI, possible kidney stone, patient elopement sp3 Followup: sp3 - With: Private Physician - When: Upon discharge from the Emergency Department - Reason: Recheck today's complaints Signatures: Dispatcher [employer] Jaycee Finnegan RN RN aa5 Paula Mark MD MD sp3 Corrections: (The following items were deleted from the chart) 07:21 07:13 Urinalysis+U.LAB.BRZ ordered. ZACHARIAH SONI
== END 2024-04-19 07:40 | disposition left against medical advice (07) ==
LOC: ER 06:53
DX: M54.50 Low back pain, unspecified (principal); Z87.442 Personal history of urinary calculi
CPT/HCPCS: 81001; 99282

== ENCOUNTER 2024-04-27 08:10 | Emergency (ER) | payer OTHER ==
--- OUTSIDE RECORDS SUMMARY | 2024-04-27 08:12 | XMS REPORT | Continuity of Care Document ---
Author Name Unknown Address [address] [facility] [address] [place], [place] [id number] [place] [address] [facility] Address [address] [facility] [address] [place] [address] Care Team Providers Care Airline Reservationist Name Role Phone ERICKSON_R Attending Clinician Unavailable ERICKSON_R Admitting Clinician Unavailable Encounters Start Date/Time End Date/Time Encounter Type Admission Type Attending Clinicians Care Facility Care Department Encounter ID Source 2023-12-23 15:39:53 2023-12-23 15:39:53 Outpatient SFA SFA [id number] [facility] 2023-12-08 14:51:46 2023-12-08 14:51:46 Outpatient SFA SFA [id number] [facility] 2023-08-04 14:56:23 2023-08-04 14:56:23 Outpatient SFA SFA [id number] [facility] 2023-06-27 14:47:45 2023-06-27 14:47:45 Outpatient SFA SFA [id number] [facility] 2023-02-14 12:59:23 2023-02-14 12:59:23 Outpatient SFA SFA [id number] [facility] Gil 2023-02-06 18:19:02 2023-02-06 18:19:02 Outpatient SFA SFA [id number] [facility] 2023-01-30 00:00:00 2023-01-30 00:00:00 Outpatient ERICKSON_R [facility] [id number] 2022-12-28 00:00:00 2022-12-28 00:00:00 Outpatient ERICKSON_R [facility] [id number] 2022-12-14 18:37:13 2022-12-14 18:37:13 Outpatient SFA SFA [id number] [facility] Gil 2022-12-13 00:00:00 2022-12-13 00:00:00 Outpatient ERICKSON_R [facility] [id number] [facility] 2022-11-18 10:08:00 2022-11-18 10:08:00 Outpatient SFA SFA [id number] [facility] 2022-11-09 15:26:18 2022-11-09 15:26:18 Outpatient SFA SFA [id number] [facility] Gil
[2024-04-27] MEDS ORDERED: IBUPROFEN 200 MG TAB PO ONE (08:39)
[2024-04-27] MEDS ORDERED: ACETAMINOPHEN 325 MG TABLET ONE (08:40)
[2024-04-27] MEDS ORDERED: IBUPROFEN 400 MG TAB ONE (08:40)
[2024-04-27] MEDS ORDERED: LIDOCAINE VISCOUS 2% 10ML ORAL SOLN ONE (08:40)
[2024-04-27] MEDS ORDERED: TDAP (DIPHTH,PERTUSS(ACELL),TET VAC) 0.5 ML VIAL IMVAC ONE (08:41)
[2024-04-27] MEDS ORDERED: HYDROCODONE/APAP 5/325 MG TAB ONE (08:53)
--- NOTE | 2024-04-27 09:10 | ER ---
Nurse's Notes [facility] Name: Natanael Dyson Age: 29 yrs Sex: Female : 1995 Arrival Date: 04/27/2024 Time: 08:10 Bed 6 Private MD: Diagnosis: Bitten by dog;Puncture wound without foreign body of right wrist, initial encounter Presentation: 04/27 08:27 Chief complaint: Patient states: Bit by own dog on R wrist approx 30 minutes SYSTEMS SPEC. ph Coronavirus screen: Vaccine status: Patient reports receiving the 1st dose of the Covid vaccine. Ebola Screen: No symptoms or risks identified at this time. Initial Sepsis Screen: Does the patient meet any 2 criteria? No. Patient's initial sepsis screen is negative. Does the patient have a suspected source of infection? No. Patient's initial sepsis screen is negative. Risk Assessment: Do you want to hurt yourself or someone else? Patient reports no desire to harm self or others. Onset of symptoms was April 27, 2024. 08:27 Method Of Arrival: Ambulatory 08:27 Acuity: THIERNO 4 ph Triage Assessment: 08:29 Bite description: bite sustained to right wrist by a dog, animal information: ph vaccination(s) is current, was sustained 30-60 minutes ago. Animal status: known and can be quarantined. General: Appears in no apparent distress. Behavior is calm, cooperative. Pain: Complains of pain in right wrist. Neuro: Level of Consciousness is awake, alert, obeys commands, Oriented to person, place, time, situation. Cardiovascular: Capillary refill < 3 seconds in bilateral fingers Patient's skin is warm and dry. Respiratory: Airway is patent Respiratory effort is even, unlabored, Respiratory pattern is regular, symmetrical. Derm: Skin is pink, warm \T\ dry. Injury Description: Bite sustained to right wrist. Historical: - Allergies: 08:28 Compazine; ph 08:28 Haldol; ph 08:28 Iodine; ph 08:28 Morphine; ph 08:28 NSAIDS NON STEROIDAL ANTI INFLAMMATORY DRUG; ph 08:28 Reglan; ph 08:28 Toradol; ph - PMHx: 08:28 Anxiety; breast cancer; depressive disorder; Kidney stone; nephritis; ph - PSHx: 08:28 Cholecystectomy; Ligation of fallopian tube; ph - Immunization history:: Adult Immunizations not up to date. - Infectious Disease History:: Denies. - Social history:: Smoking status: Patient denies any tobacco usage or history of. Screenin:31 [facility] ED Fall Risk Assessment (Adult) History of falling in the last 3 months, ph including since admission No falls in past 3 months (0 pts) Confusion or Disorientation No (0 pts) Intoxicated or Sedated No (0 pts) Impaired Gait No (0 pts) Mobility Assist Device Used No (0 pt) Altered Elimination No (0 pt) Score/Fall Risk Level 0 - 2 = Low Risk Oriented to surroundings, Maintained a safe environment, Hourly rounding (assess needs \T\ fall precautionary measures) done. Abuse screen: Denies threats or abuse. Denies injuries from another. Nutritional screening: No deficits noted. Tuberculosis screening: No symptoms or risk factors identified. Vital Signs: 08:27 BP 144 / 99; Pulse 106; Resp 20; Temp 98; Pulse Ox 100% on R/A; Weight 49.9 kg; Height ph 5 ft. 1 in. ; 08:27 Body Mass Index 20.78 (49.90 kg, 154.94 cm) ph ED Course: 08:17 Patient arrived in ED. sj2 08:21 Justin Curiel PA is PHCP. cp 08:21 Harjit Samson MD is Attending Physician. cp 08:23 Viktoriya Jaramillo, ROSEY is Primary Nurse. ph 08:28 Triage completed. ph 08:29 Arm band placed on Patient placed in an exam room, on a stretcher. ph 08:32 Patient has correct armband on for positive identification. Bed in low position. Call ph light in reach. Side rails up X 1. Pulse ox on. NIBP on. Door closed. Noise minimized. 08:43 Animal control notified at 08:43 call sheet number [id number]. bd 08:54 XRAY Wrist RIGHT 3 view In Process Unspecified. EDMS 09:36 No provider procedures requiring assistance completed. Patient did not have IV access ph during this emergency room visit. Velcro wrist splint applied to right wrist. Wound care: to dog bite located on right wrist was cleaned with Betadine, irrigated with normal saline, dressed with Neosporin, 4X4s, Kerlix. Administered Medications: 08:51 Not Given (Physician Discretion): [id number] mg PO once cp 08:51 Not Given (Physician Discretion): [id number] mg PO once cp 08:54 Drug: Lidocaine Mucous Membrane Gel 2 % 1 ea 15 ml Mucous Membrane once Volume: 15 ml; ph Route: Mucous Membrane; 09:36 Follow up: Response: No adverse reaction ph 08:54 Drug: HYDROcodone-acetaminophen PO 5 mg-325 mg 1 tabs PO once Route: PO; ph 09:36 Follow up: Response: No adverse reaction ph 08:55 Drug: Boostrix Tdap IM 0.5 ml IM once; as a single dose Route: IM; Site: left deltoid; ph 09:36 Follow up: Response: No adverse reaction ph 09:36 Drug: Amoxicillin-Clavulanate PO 875 mg PO once Route: PO; ph 09:36 Follow up: Response: No adverse reaction; Medication administered at discharge. ph Medication: 08:55 Vaccine Information Statement (VIS) provided today. Questions and/or concerns ph addressed. VIS edition date: December 2020. Outcome: 09:10 Discharge ordered by . cp 09:37 Discharged to home ambulatory, ph 09:37 Condition: good 09:37 Discharge instructions given to patient, Instructed on discharge instructions, follow up and referral plans. medication usage, Demonstrated understanding of instructions, follow-up care, medications, Prescriptions given X 1, 09:37 Patient left the ED. ph Signatures: Dispatcher [employer] EDMS Miley Hernández Patricia RN RN ph Justin Curiel PA PA cp [place], Sonceria sj2
--- NOTE | 2024-04-27 09:10 | EDPHYS ---
Physician Documentation [facility] Name: Natanael Dyson Age: 29 yrs Sex: Female : 1995 Arrival Date: 04/27/2024 Time: 08:10 Bed 6 Private MD: ED Physician Harjit Samson HPI: 04/27 08:30 This 29 yrs old Female presents to ER via Ambulatory with complaints of Dog Bite. cp Historical: - Allergies: 08:28 Compazine; ph 08:28 Haldol; ph 08:28 Iodine; ph 08:28 Morphine; ph 08:28 NSAIDS NON STEROIDAL ANTI INFLAMMATORY DRUG; ph 08:28 Reglan; ph 08:28 Toradol; ph - PMHx: 08:28 Anxiety; breast cancer; depressive disorder; Kidney stone; nephritis; ph - PSHx: 08:28 Cholecystectomy; Ligation of fallopian tube; ph - Immunization history:: Adult Immunizations not up to date. - Infectious Disease History:: Denies. - Social history:: Smoking status: Patient denies any tobacco usage or history of. ROS: 08:35 MS/extremity: Positive for bite, of the right wrist, cp 08:35 Constitutional: Negative for body aches, chills, fever, poor PO intake, cp 08:35 Constitutional: history per hpi cp 08:35 Skin: Positive for abrasion(s), puncture, of the right wrist, multiple, 08:35 All other systems are negative, Exam: 09:00 Head/Face: Normocephalic, atraumatic. cp 09:00 Constitutional: The patient appears in no acute distress, alert, awake, non-toxic, well developed, well nourished, 09:00 Chest/axilla: Inspection: normal, 09:00 Cardiovascular: Rate: tachycardic, Rhythm: regular, 09:00 Respiratory: the patient does not display signs of respiratory distress, Respirations: normal, no use of accessory muscles, no retractions, labored breathing, is not present, Breath sounds: are clear throughout, no decreased breath sounds, no stridor, no wheezing, 09:00 Abdomen/GI: Exam negative for discomfort, distension, guarding, Inspection: abdomen appears normal, 09:00 Musculoskeletal/extremity: Extremities: noted in the right wrist: superficial abrasions noted radial and volar side with scant active bleeding, ROM: limited passive range of motion due to pain, in the right wrist, Perfusion: the extremity is normally perfused throughout, the right hand Sensation intact. Vital Signs: 08:27 BP 144 / 99; Pulse 106; Resp 20; Temp 98; Pulse Ox 100% on R/A; Weight 49.9 kg; Height ph 5 ft. 1 in. ; 08:27 Body Mass Index 20.78 (49.90 kg, 154.94 cm) ph MDM: 08:21 Medical Screening Exam initiated cp 08:58 Independent interpretation of the following test(s) in the Emergency Department X-Ray: cp My interpretation is images of right wrist negative for fracture. 09:08 Data reviewed: vital signs, nurses notes, radiologic studies, plain films, and as a cp result, I will discharge patient. I considered the following discharge prescriptions or medication management in the emergency department Medications were administered in the Emergency Department. See JUL. 04/27 08:29 Order name: XRAY Wrist RIGHT 3 view; Complete Time: 09:13 cp 04/27 09:13 Interpretation: Report reviewed. cp 04/27 09:05 Order name: Wound dressing; Complete Time: 09:36 cp 04/27 09:05 Order name: Wrist Splint; Complete Time: 09:36 cp Administered Medications: 08:51 Not Given (Physician Discretion): [id number] mg PO once cp 08:51 Not Given (Physician Discretion): [id number] mg PO once cp 08:54 Drug: Lidocaine Mucous Membrane Gel 2 % 1 ea 15 ml Mucous Membrane once Volume: 15 ml; ph Route: Mucous Membrane; 09:36 Follow up: Response: No adverse reaction ph 08:54 Drug: HYDROcodone-acetaminophen PO 5 mg-325 mg 1 tabs PO once Route: PO; ph 09:36 Follow up: Response: No adverse reaction ph 08:55 Drug: Boostrix Tdap IM 0.5 ml IM once; as a single dose Route: IM; Site: left deltoid; ph 09:36 Follow up: Response: No adverse reaction ph 09:36 Drug: Amoxicillin-Clavulanate PO 875 mg PO once Route: PO; ph 09:36 Follow up: Response: No adverse reaction; Medication administered at discharge. ph Disposition: 09:52 Co-signature as Attending Physician, Harjit Samson MD I reviewed the patient's care rn provided by the Advanced Practice Provider and agree with the diagnosis and treatment plan. Disposition Summary: 04/27/24 09:10 Discharge Ordered Notes: Location: Home cp Problem: new cp Symptoms: have improved cp Condition: Stable cp Diagnosis - Bitten by dog cp - Puncture wound without foreign body of right wrist, initial encounter cp Followup: cp - With: Private Physician - When: 2 - 3 days - Reason: Worsening of condition Discharge Instructions: - Discharge Summary Sheet cp - Animal Bite, Adult, [id number] cp Forms: - Medication Reconciliation Form cp - Antibiotic Education cp - Prescription Opioid Use cp - Patient Portal Instructions cp - Leadership Thank You Letter cp Prescriptions: - Augmentin 875-125 mg Oral Tablet - take 1 tablet ORAL route every 12 hours for 10 days; 20 tablet; Refills: 0, cp Product Selection Permitted Signatures: Dispatcher [employer] Harjit Elliott MD MD rn Hall, Patricia, RN RN ph Justin Curiel, PA PA cp
--- NOTE | 2024-04-27 09:12 | RAD REPORT ---
EXAMINATION: Wrist Right 3 View CLINICAL INDICATION: Female, 29 years old. ANIMAL BITE RIGHT COMPARISON: No prior exam. FINDINGS: No acute fracture. No malalignment/dislocation. No significant focal degenerative change. Other: n/a IMPRESSION: No acute osseous abnormality.
[2024-04-27] MEDS ORDERED: AMOX/K CLAV 875 MG TAB ONE (09:18)
[2024-04-27 09:50] VITALS: BP 144/99; TEMP 98; O2SAT 100
== END 2024-04-27 09:37 | disposition home or self-care (01) ==
LOC: ER 08:10
DX: S61.531A Puncture wound without foreign body of right wrist, initial encounter (principal); W54.0XXA Bitten by dog, initial encounter
CPT/HCPCS: 96372; 99284

== ENCOUNTER 2024-05-10 07:28 | Emergency (ER) | payer OTHER ==
--- OUTSIDE RECORDS SUMMARY | 2024-05-10 07:42 | XMS REPORT | Continuity of Care Document ---
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 diphenhydrA MINE 25 mg tablet 2023-05 00:00: 00 03-21 05:59 :00 Yes [id number] 25mg Take 1 tablet by mouth every 6 (six) hours as needed for Allergies for up to 7 days. [facility] methylPREDN ISolone sod succ (SOLU-MEDRO L (PF)) injection 40 mg 2023-05 23:45: 00 03-13 01:24 :00 No 40mg 40 mg, Intravenou s, ONCE, 1 dose, On Sat03/12/24 at 1845, 1 mL [facility] diphenhydrA MINE (BENADRYL) injection 50 mg 2023-05 23:45: 00 03-13 01:23 :00 No 50mg 50 mg, Intravenou s, ONCE, 1 dose, On Sat03/12/24 at 1845, Routine [facility] methylPREDN ISolone sod succ (SOLU-MEDRO L (PF)) injection 40 mg 2023-05 20:45: 00 03-12 20:53 :00 No 40mg 40 mg, Intravenou s, ONCE, 1 dose, On Sat03/12/24 at 1545, 1 mL [facility] diphenhydrA MINE (BENADRYL) injection 25 mg 2023-05 20:30: 00 03-12 20:58 :00 No 25mg 25 mg, Intravenou s, ONCE, 1 dose, On Sat03/12/24 at 1545, Routine [facility] diphenhydrA MINE (BENADRYL) injection 25 mg 2023-05 16:30: 00 03-12 16:16 :00 No 25mg 25 mg, Intravenou s, ONCE, 1 dose, On Sat03/12/24 at 1130, Routine [facility] diazePAM (VALIUM) injection 2 mg 2023-05 15:45: 00 03-13 13:38 :00 No 2mg 2 mg, Slow IV Push, BID, First dose on Sat03/12/24 at 1045, Until Discontinu ed, Routine [facility] Potassium Bicarb-Citr ic Acid (EFFER-K) effervescen t tablet 40 mEq 2023-05 03:45: 00 03-12 03:18 :00 No 40meq 40 mEq, Oral, ONCE, 1 dose, On Sat03/11/24 at 2245, Routine [facility] amitriptyli ne (ELAVIL) tablet 25 mg 2023-05 02:00: 00 Yes 25mg 25 mg, Oral, QHS, First dose on Sat03/11/24 at 2100, Until Discontinu ed, Routine [facility] budesonide (PULMICORT RESPULE) nebulizer solution 0.25 mg 2023-05 20:30: 00 03-12 15:40 :27 No .25mg 0.25 mg, Inhalation , BID, First dose (after last modificati on) on Sat03/11/24 at 1530, Until Discontinu ed, Routine [facility] morpHINE injection 2 mg 2023-05 18:00: 00 03-11 18:18 :00 No 2mg 2 mg, Slow IV Push, ONCE, 1 dose, On Sat03/11/24 at 1300, Routine [facility] proMETHazin e (PHENERGAN) 12.5 mg in NS 50 mL IV piggyback (CNR) 2023-05 16:08: 36 03-13 06:15 :30 No 12.5mg 12.5 mg, IV Piggyback, at 200 mL/hr Administer over 15 Minutes, Q4HPRN, Starting on Sat03/11/24 at 1108, Until Sat03/13/24 at 0115, [place], Nausea and Vomiting (N/V) [facility] diphenhydrA MINE (BENADRYL) injection 25 mg 2023-05 15:45: 00 03-11 15:14 :00 No 25mg 25 mg, Intravenou s, ONCE, 1 dose, On Sat03/11/24 at 1045, Routine [facility] morphine (2 mg/mL) injection 4 mg 2023-05 13:44: 13 03-11 17:55 :50 No 4mg 4 mg, Slow IV Push, Q4HPRN, Starting on Sat03/11/24 at 0844, Until Sat03/11/24 at 1255, Routine, Pain (scale 7-10) [facility] magnesium sulfate in water 4 gram/50 mL (8 %) IV Piggyback 4 g 2023-05 13:00: 00 03-11 16:09 :00 No 4g 4 g, IV Piggyback, at 25 mL/hr Administer over 120 Minutes, ONCE, 1 dose, On Sat03/11/24 at 0800, Routine [facility] tetracyclin e (ACHROMYCIN ) capsule 500 mg 2023-05 13:00: 00 03-11 16:07 :08 No 500mg 500 mg, Oral, QID, 112 doses, First dose on Sat03/11/24 at 0800, Last dose on Sat04/07/24 at 2000, [place], Reason for Anti-Infec tive: Documented Infection, Documented Infection Site: Abdominal, Duration of Therapy: 14 days [facility] metroNIDAZO LE (FLAGYL) tablet 500 mg 2023-05 13:00: 00 03-11 16:07 :08 No 500mg 500 mg, Oral, QID, First dose on Sat03/11/24 at 0800, Until Discontinu ed, Routine, Reason for Anti-Infec tive: Documented Infection, Documented Infection Site: Abdominal, Duration of Therapy: 14 days [facility] bismuth subsalicyla te (PEPTO BISMOL) chewable tablet 524 mg 2023-05 13:00: 00 03-11 16:07 :08 No 524mg 524 mg, Oral, QID, First dose on Sat03/11/24 at 0800, Until Discontinu ed [facility] lactated ringers IV infusion 1,000 mL 2023-05 08:30: 00 03-11 16:29 :00 No 1000mL at 125 mL/hr, 1,000 mL, IV Infusion, CONTINUOUS , Starting on Sat03/11/24 at 0330, Until Sat03/11/24 at 1129, Routine [facility] trimethoben zamide (TIGAN) injection 100 mg 2023-05 05:12: 20 03-13 16:08 :09 No 100mg 100 mg, Intramuscu lar, Q6HPRN, Starting on Sat03/11/24 at 0012, Until Sat03/13/24 at 1108, Routine, Nausea and Vomiting (N/V), alternate with zofran [facility] ondansetron (ZOFRAN (PF)) injection 4 mg 2023-05 03:42: 41 03-11 16:10 :43 No 4mg 4 mg, Slow IV Push, Q6HPRN, Starting on Sat03/10/24 at 2242, Until Sat03/11/24 at 1110, [place], Nausea and Vomiting (N/V) [facility] pantoprazol e (PROTONIX) injection 40 mg 2023-05 03:30: 00 03-13 16:08 :09 No 40mg 40 mg, Slow IV Push, Q12H, First dose on Sat03/10/24 at 2230, Until Discontinu ed [facility] morpHINE injection 4 mg 2023-05 03:21: 30 03-11 13:44 :25 No 4mg 4 mg, Slow IV Push, Q4HPRN, Starting on Sat03/10/24 at 2221, Until Sat03/11/24 at 0844, Routine, Pain (scale 7-10) [facility] acetaminoph en (TYLENOL) tablet 650 mg 2023-05 03:21: 25 03-13 16:08 :09 No 650mg [facility] morpHINE injection 4 mg 2023-05 02:00: 00 03-11 01:10 :00 No 4mg 4 mg, Slow IV Push, ONCE, 1 dose, On Sat03/10/24 at 2100, STAT [facility] trimethoben zamide (TIGAN) injection 100 mg 2023-05 02:00: 00 03-11 02:05 :00 No 100mg 100 mg, Intramuscu lar, ONCE, 1 dose, On Sat03/10/24 at 2100, Routine [facility] morpHINE injection 4 mg 2023-05 21:30: 00 03-10 22:20 :00 No 4mg 4 mg, Slow IV Push, ONCE, 1 dose, On Sat03/10/24 at 1630, STAT [facility] proMETHazin e (PHENERGAN) 25 mg in NS 50 mL IV piggyback (CNR) 2023-05 21:00: 00 03-10 22:30 :00 No 25mg 25 mg, IV Piggyback, at 200 mL/hr Administer over 15 Minutes, ONCE, 1 dose, On Sat03/10/24 at 1600, [place] [facility] diphenhydrA MINE (BENADRYL) injection 25 mg 2023-05 19:00: 00 03-10 19:12 :00 No 25mg 25 mg, Slow IV Push, ONCE, 1 dose, On Sat03/10/24 at 1400, STAT [facility] ondansetron (ZOFRAN (PF)) injection 4 mg 2023-05 18:30: 00 03-10 18:34 :00 No 4mg 4 mg, Slow IV Push, ONCE, 1 dose, On Sat03/10/24 at 1330, [facility] diphenhydrA MINE:lidoca ine 2% viscous:maa lox 1:1:1 (FIRST-MOUT HWASH BLM) oral suspension 15 mL 2023-05 17:15: 00 03-10 18:34 :00 No 15mL 15 mL, Oral, ONCE, 1 dose, On Sat03/10/24 at 1215, Routine [facility] NaCl 0.9% (NS) bolus infusion 1,500 mL 2023-05 16:30: 00 03-11 00:19 :00 No 1500mL at 999 mL/hr, 1,500 mL, IV Infusion, ONCE, 1 dose, On Sat03/10/24 at 1130, [facility] morpHINE injection 4 mg 2023-05 16:30: 00 03-10 16:33 :00 No 4mg 4 mg, Slow IV Push, ONCE, 1 dose, On Sat03/10/24 at 1130, [facility] ondansetron (ZOFRAN (PF)) injection 4 mg 2023-05 15:30: 00 03-10 15:54 :00 No 4mg 4 mg, Slow IV Push, ONCE, 1 dose, On Sat03/10/24 at 1030, [facility] pantoprazol e (PROTONIX) EC tablet 40 mg 2023-0525 01:00: 00 03-05 22:06 :08 No 40mg 40 mg, Oral, BID, First dose on Sat03/05/24 at 2000, Until Discontinu ed, Routine [facility] bismuth subsalicyla te (PEPTO BISMOL) chewable tablet 524 mg 2023-05 17:00: 00 03-05 22:06 :08 No 524mg 524 mg, Oral, QID, 56 doses, First dose on Sat03/05/24 at 1200, Last dose on Sat03/19/24 at 0800, Routine [facility] tetracyclin e (ACHROMYCIN ) capsule 500 mg 2023-05 13:00: 00 03-05 22:06 :08 No 500mg 500 mg, Oral, QID, 56 doses, First dose on Sat03/05/24 at 0800, Last dose on Sat03/18/24 at 2000, [place], Reason for Anti-Infec tive: Documented Infection, Documented Infection Site: Abdominal, Duration of Therapy: 14 days [facility] metroNIDAZO LE (FLAGYL) tablet 500 mg 2023-05 11:30: 00 03-05 22:06 :08 No 500mg 500 mg, Oral, Q8H, 42 doses, First dose on Sat03/05/24 at 0630, Last dose on Sat03/18/24 at 2200, Routine, Reason for Anti-Infec tive: Documented Infection, Documented Infection Site: Abdominal, Duration of Therapy: 14 days [facility] pantoprazol e (PROTONIX) injection 40 mg 2023-05 01:00: 00 03-05 16:38 :50 No 40mg 40 mg, Slow IV Push, Q12H, First dose on Sat03/04/24 at 2000, Until Discontinu ed [facility] metroNIDAZO LE 500 mg tablet 2023-05 00:00: 00 Yes [id number] 500mg Take 1 tablet by mouth 4 (four) times daily. [facility] tetracyclin e 500 mg capsule 2023-05 00:00: 00 Yes [id number] 500mg Take 1 capsule by mouth 4 (four) times daily. [facility] bismuth subsalicyla te 525 mg Tab 2023-05 00:00: 00 Yes [id number] 525mg Take 525 mg by mouth 4 (four) times daily. [facility] omeprazole 20 mg capsule 2023-05 00:00: 00 Yes [id number] 20mg Take 1 capsule by mouth in the morning and 1 capsule in the evening. [facility] ondansetron 4 mg disintegrat ing tablet 2023-05 00:00: 00 Yes [id number] 4mg Take 1 tablet by mouth every 8 (eight) hours as needed for Nausea and Vomiting (N/V). [facility] enoxaparin (LOVENOX) injection 40 mg 2023-05 22:00: 00 03-05 22:06 :08 No 40mg 40 mg, Subcutaneo us, DAILY, First dose on Sat03/04/24 at 1700, Until Discontinu ed, Routine [facility] hydrOXYzine (ATARAX) tablet 10 mg 2023-05 20:02: 48 03-05 22:06 :08 No 10mg 10 mg, Oral, Q6HPRN, Starting on Sat03/04/24 at 1502, Until Kathie 03/05/24 at 1706, Routine, Anxiety [facility] morphine (2 mg/mL) injection 4 mg 2023-05 19:15: 05 03-05 19:09 :51 No 4mg 4 mg, Slow IV Push, Q6HPRN, Starting on Sat03/04/24 at 1415, Until Kathie 03/05/24 at 1409, Routine, Pain (scale 7-10) [facility] proMETHazin e (PHENERGAN) 12.5 mg in NS 50 mL IV piggyback (CNR) 2023-05 19:13: 41 03-05 22:06 :08 No 12.5mg 12.5 mg, IV Piggyback, at 200 mL/hr Administer over 15 Minutes, Q4HPRN, Starting on Sat03/04/24 at 1413, Until Kathie 03/05/24 at 1706, Routine, N/V unresponsi ve to Ondansetro n [facility] ondansetron (ZOFRAN (PF)) injection 4 mg 2023-05 19:10: 57 03-05 22:06 :08 No 4mg 4 mg, Slow IV Push, Q6HPRN, Starting on Sat03/04/24 at 1410, Until Sat03/05/24 at 1706, Routine, Nausea and Vomiting (N/V) [facility] HYDROcodone -acetaminop hen (NORCO 5) tablet 1 tablet 2023-05 19:10: 38 03-05 22:06 :08 No 1{tbl} 1 tablet, Oral, Q6HPRN, Starting on Sat03/04/24 at 1410, Until Kathie 03/05/24 at 1706, Routine, Pain (scale 4-6) [facility] acetaminoph en (TYLENOL) tablet 650 mg 2023-05 19:10: 34 03-05 22:06 :08 No 650mg [facility] morphine (2 mg/mL) injection 4 mg 2023-05 16:15: 00 03-04 16:19 :00 No 4mg 4 mg, Slow IV Push, ONCE, 1 dose, On Sat03/04/24 at 1115, [place] [facility] ondansetron (ZOFRAN (PF)) injection 4 mg 2023-05 16:15: 00 03-04 16:19 :00 No 4mg 4 mg, Slow IV Push, ONCE, 1 dose, On Sat03/04/24 at 1115, [place] [facility] morphine (2 mg/mL) injection 4 mg 2023-05 13:15: 00 03-04 13:57 :00 No 4mg 4 mg, Slow IV Push, ONCE, 1 dose, On Sat03/04/24 at 0815, STAT [facility] pantoprazol e (PROTONIX) injection 40 mg 2023-05 13:15: 00 03-04 14:04 :00 No 40mg 40 mg, Slow IV Push, ONCE, 1 dose, On Sat03/04/24 at 0815 [facility] NaCl 0.9% (NS) bolus infusion 1,000 mL 2023-05 13:15: 00 03-04 16:51 :00 No 1000mL at 999 mL/hr, 1,000 mL, IV Infusion, ONCE, 1 dose, On Sat03/04/24 at 0815, [place] [facility] ondansetron (ZOFRAN (PF)) injection 4 mg 2023-05 12:15: 00 03-04 13:56 :00 No 4mg 4 mg, Slow IV Push, ONCE, 1 dose, On Sat03/04/24 at 0715, [place] [facility] escitalopra m oxalate 20 mg tablet 2023-05 00:00: 00 Yes 20mg Take 1 tablet by mouth in the morning. [facility] eszopiclone 3 mg tablet 2023-05 00:00: 00 Yes 3mg Take 1 tablet by mouth at bedtime. [facility] bismuth subsalicyla te 525 mg Tab 2023-05 00:00: 00 03-05 00:00 :00 No [id number] 525mg Take 525 mg by mouth 4 (four) times daily for 14 days. [facility] metroNIDAZO LE 500 mg tablet 2023-05 00:00: 00 03-05 00:00 :00 No [id number] 500mg Take 1 tablet by mouth 4 (four) times daily for 14 days. [facility] tetracyclin e 500 mg capsule 2023-05 00:00: 00 03-05 00:00 :00 No [id number] 500mg Take 1 capsule by mouth 4 (four) times daily for 14 days. [facility] omeprazole 20 mg capsule 2023-05 00:00: 00 03-05 00:00 :00 No [id number] 20mg Take 1 capsule by mouth in the morning and 1 capsule in the evening. Do all this for 14 days. [facility] pantoprazol e (PROTONIX) EC tablet 40 mg 2023-05 16:45: 00 02-26 23:59 :22 No 40mg 40 mg, Oral, BID, First dose (after last modificati on) on Kathie 02/27/24 at 1145, Until Discontinu ed, Routine [facility] lactated ringers IV infusion 2023-05 15:19: 00 02-26 15:26 :52 No IV Infusion, CONTINUOUS PRN, Starting on Kathie 02/27/24 at 1019, Until Kathie 02/27/24 at 1026, Routine, Intra-op [facility] simethicone (GAS RELIEF (SIMETHICON E)) 40 mg/0.6 mL drops 2023-05 14:57: 00 02-26 16:34 :28 No PRN, Starting on Kathie 02/27/24 at 0957, Until Kathie 02/27/24 at 1134, Routine, Intra-op [facility] PHENYLephri ne 1000 mcg/10 mL in 0.9% NaCl syringe 2023-05 14:50: 00 02-26 15:26 :52 No Intravenou s, ONCE INTRA PROCEDURE, Starting on Kathie 02/27/24 at 0950, Until Kathie 02/27/24 at 1026, Routine, Intra-op [facility] dexmedeTOMI Dine (PRECEDEX) injection 2023-05 14:27: 00 02-26 15:26 :52 No Intravenou s, ONCE INTRA PROCEDURE, Starting on Kathie 02/27/24 at 0927, Until Kathie 02/27/24 at 1026, Routine, Intra-op [facility] propofoL IV infusion 2023-05 14:26: 00 02-26 15:26 :52 No IV Infusion, ONCE INTRA PROCEDURE, Starting on Kathie 02/27/24 at 0926, Until Kathie 02/27/24 at 1026, Routine, Intra-op [facility] lidocaine 1% (XYLOCAINE) 100 mg/10 mL (1 %) injection 2023-05 14:26: 00 02-26 15:26 :52 No Intravenou s, ONCE INTRA PROCEDURE, Starting on Kathie 02/27/24 at 0926, Until Kathie 02/27/24 at 1026, Routine, Intra-op [facility] FENTanyl (PF) (SUBLIMAZE) injection 2023-05 14:26: 00 02-26 15:26 :52 No Intravenou s, ONCE INTRA PROCEDURE, Starting on Kathie 02/27/24 at 0926, Until Kathie 02/27/24 at 1026, Routine, Intra-op [facility] midazolam (VERSED) injection 2023-05 14:24: 00 02-26 15:26 :52 No IV Push, ONCE INTRA PROCEDURE, Starting on Kathie 02/27/24 at 0924, Until Kathie 02/27/24 at 1026, Routine, Intra-op [facility] NaCl 0.9% (NS) IV infusion 2023-05 14:22: 00 02-26 15:26 :52 No IV Infusion, CONTINUOUS PRN, Starting on Kathie 02/27/24 at 0922, Until Kathie 02/27/24 at 1026, Routine, Intra-op [facility] sodium phosphates (READY-TO-U SE ENEMA) 19-7 gram/118 mL enema 1 Enema 2023-05 10:00: 00 02-26 10:05 :00 No 1{enema } 1 Enema, Rectal, ONCE, 1 dose, On Sat02/27/24 at 0500, Routine [facility] polyethylen e glycol 3350 powder 17 g 2023-05 01:00: 00 02-26 21:59 :19 No 17g 17 g, Oral, BID, First dose (after last modificati on) on Sat02/26/24 at 2000, Until Discontinu ed, Routine [facility] ondansetron 4 mg disintegrat ing tablet 2023-05 00:00: 00 03-05 00:00 :00 No [id number] 4mg Take 1 tablet by mouth every 8 (eight) hours as needed for Nausea and Vomiting (N/V). [facility] pantoprazol e 40 mg EC tablet 2023-05 00:00: 00 03-05 00:00 :00 No [id number] 40mg Take 1 tablet by mouth in the morning and 1 tablet in the evening. [facility] amitriptyli ne 25 mg tablet 2023-05 00:00: 00 03-04 00:00 :00 No [id number] 25mg Take 1 tablet by mouth at bedtime. [facility] acetaminoph en-codeine 300-30 mg tablet 2023-05 00:00: 00 02-26 00:00 :00 No [id number] 1{tbl} Take 1 tablet by mouth every 4 (four) hours as needed for Pain (scale 7-10) for up to 7 days. Indication s: acute pain [facility] simethicone (GAS RELIEF (SIMETHICON E)) chewable tablet 80 mg 2023-05 23:00: 00 02-26 21:59 :19 No 80mg 80 mg, Oral, PC+HS, First dose on Sat02/26/24 at 1800, Until Discontinu ed, Routine [facility] morphine (2 mg/mL) injection 2 mg 2023-05 20:22: 36 02-26 21:59 :19 No 2mg 2 mg, Slow IV Push, Q4HPRN, Starting on Sat02/26/24 at 1522, Until Kathie 02/27/24 at 1659, Routine, Pain (scale 4-6) [facility] morphine (2 mg/mL) injection 4 mg 2023-05 20:22: 32 02-26 21:59 :19 No 4mg 4 mg, Slow IV Push, Q4HPRN, Starting on Sat02/26/24 at 1522, Until Kathie 02/27/24 at 1659, Routine, Pain (scale 7-10) [facility] LORazepam (ATIVAN) injection 0.5 mg 2023-05 18:39: 21 02-26 21:59 :19 No .5mg 0.5 mg, Slow IV Push, Q6HPRN, Starting on Sat02/26/24 at 1339, Until Kathie 02/27/24 at 1659, Routine, Anxiety [facility] bisacodyL (DULCOLAX) suppository 10 mg 2023-05 18:17: 00 02-25 18:47 :00 No 10mg 10 mg, Rectal, ONCE NOW, 1 dose, On Sat02/26/24 at 1330, Routine [facility] acetaminoph en (OFIRMEV) IV piggyback 1,000 mg 2023-05 15:30: 00 02-25 15:03 :00 No 1000mg 1,000 mg, IV Piggyback, at 400 mL/hr Administer over 15 Minutes, ONCE, 1 dose, On Sat02/26/24 at 1030, Routine, Is the patient strict NPO and unable to tolerate oral medication s? Yes [facility] bisacodyL (DULCOLAX) tablet 5 mg 2023-05 14:30: 00 02-26 21:59 :19 No 5mg 5 mg, Oral, DAILY, First dose on Sat02/26/24 at 0930, Until Discontinu ed, Routine [facility] amitriptyli ne (ELAVIL) tablet 25 mg 2023-05 02:00: 00 02-26 23:59 :22 No 25mg 25 mg, Oral, QHS, First dose on Sat02/25/24 at 2100, Until Discontinu ed, Routine [facility] morphine (2 mg/mL) injection 4 mg 2023-05 18:49: 53 02-25 14:28 :08 No 4mg 4 mg, Slow IV Push, Q4HPRN, Starting on Sat02/25/24 at 1349, Until Sat02/26/24 at 0928, Routine, Pain (scale 7-10) [facility] morphine (2 mg/mL) injection 2 mg 2023-0515 18:49: 15 02-25 14:28 :08 No 2mg 2 mg, Slow IV Push, Q4HPRN, Starting on Sat02/25/24 at 1349, Until Sat02/26/24 at 0928, Routine, Pain (scale 7-10) [facility] gadobenate dimeglumine (MULTIHANCE -10 mL) injection 9.08 mL 2023-05 17:30: 00 02-24 17:30 :00 No [id number] .2mL/kg 9.08 mL (0.2 mL/kg ?45.4 kg), Intravenou s, ONCE, 1 dose, On Sat02/25/24 at 1230, [facility]ATIVAN[facility] 1 mg 2023-05 17:00: 00 02-24 16:25 :00 No 1mg 1 mg, Slow IV Push, ONCE, 1 dose, On Sat02/25/24 at 1200, STAT [facility] polyethylen e glycol 3350 powder 17 g 2023-05 16:00: 00 02-25 14:24 :01 No 17g 17 g, Oral, DAILY, First dose on Sat02/25/24 at 1100, Until Discontinu ed, Routine [facility] lactated ringers IV infusion 1,000 mL 2023-05 13:15: 02-26 21:59 :19 No 1000mL at 125 mL/hr, 1,000 mL, IV Infusion, CONTINUOUS , Starting on Sat02/25/24 at 0815, Until Sat02/27/24 at 1659, Routine [facility] potassium chloride in water (KCL) 20 mEq/100 mL IV infusion 20 mEq 2023-05 13:00: 00 02-24 13:30 :00 No 20meq 20 mEq, IV Infusion, at 50 mL/hr Administer over 2 Hours, ONCE, 1 dose, On Sat02/25/24 at 0800, Routine [facility] melatonin (MELATIN) tablet 3 mg 2023-05 02:00: 00 02-26 21:59 :19 No 3mg 3 mg, Oral, QHS, First dose on Sat02/24/24 at 2100, Until Discontinu ed, Routine [facility] lactated ringers IV infusion 500 mL 2023-05 19:30: 00 02-24 09:54 :00 No 500mL at 999 mL/hr, 500 mL, IV Infusion, ONCE, 1 dose, On Sat02/24/24 at 1430, Routine [facility] Lidocaine (LIDOCARE) 4 % patch 1 Patch 2023-05 18:00: 00 02-24 05:15 :00 No 1{patch } 1 Patch, Topical, Administer over 12 Hours, ONCE, 1 dose, On Sat02/24/24 at 1300, Routine [facility] LORazepam (ATIVAN) injection 0.5 mg 2023-05 12:25: 30 02-25 18:39 :43 No .5mg 0.5 mg, Slow IV Push, Q6HPRN, Starting on Sat02/24/24 at 0725, Until Sat02/26/24 at 1339, Routine, Anxiety, Agitation [facility] diphenhydrA MINE (BENADRYL) injection 25 mg 2023-05 01:40: 29 02-23 14:54 :01 No 25mg 25 mg, Intravenou s, Q6HPRN, Starting on Sat02/23/24 at 2040, Until Sat02/24/24 at 0954, Routine, Nausea and Vomiting (N/V) [facility] LORazepam (ATIVAN) injection 0.5 mg 2023-05 01:39: 00 02-23 02:48 :00 No .5mg 0.5 mg, Slow IV Push, ONCE, 1 dose, On Sat02/23/24 at 2045, Routine [facility] diphenhydrA MINE (BENADRYL) injection 25 mg 2023-05 14:19: 13 02-23 01:14 :28 No 25mg 25 mg, Intravenou s, Q6HPRN, Starting on Sat02/23/24 at 0919, Until Sat02/23/24 at 2014, Routine, Nausea and Vomiting (N/V) [facility] ondansetron (ZOFRAN (PF)) injection 4 mg 2023-05 14:18: 38 02-26 21:59 :19 No 4mg 4 mg, Slow IV Push, Q6HPRN, Nausea and Vomiting (N/V), Starting on 02/23/24 at 0918, Doses of ondansetro n 16 mg and above need to be administer ed via IV piggyback. For Dose >=24mg ECG monitoring is advisable. [facility] pantoprazol e (PROTONIX) injection 40 mg 2023-05 11:53: 00 02-25 19:46 :39 No 40mg 40 mg, Slow IV Push, Q24H, First dose (after last modificati on) on 02/23/24 at 0700, Until Discontinu ed [facility] cariprazine (VRAYLAR) 1.5 mg capsule 2023-05 09:24: 25 Yes 1.5mg Take 1 capsule by mouth in the morning. [facility] LORazepam 0.5 mg tablet 2023-05 09:24: 25 Yes .5mg Take 1 tablet by mouth. [facility] diphenhydrA MINE (BENADRYL) injection 25 mg 2023-05 03:57: 18 02-22 14:19 :23 No 25mg 25 mg, Intravenou s, Q4HPRN, Starting on 02/22/24 at 2257, Until 02/23/24 at 0919, Routine, Nausea and Vomiting (N/V) [facility] heparin (porcine) injection 5,000 Units 2023-05 01:00: 00 02-26 21:59 :19 No 5000U 5,000 Units, Subcutaneo us, Q12H, First dose on 02/22/24 at 2000, Until Discontinu ed, Routine [facility] morphine (2 mg/mL) injection 4 mg 2023-05 19:33: 18 02-24 15:57 :38 No 4mg 4 mg, Slow IV Push, Q4HPRN, Starting on 02/22/24 at 1433, Until 02/25/24 at 1057, Routine, Pain (scale 7-10) [facility] proMETHazin e (PHENERGAN) 25 mg in NS 50 mL IV piggyback (CNR) 2023-05 19:33: 05 02-22 14:19 :00 No 25mg 25 mg, IV Piggyback, at 200 mL/hr Administer over 15 Minutes, Q4HPRN, Starting on 02/22/24 at 1433, Until 02/23/24 at 0919, [place], Nausea and Vomiting (N/V) [facility] metoprolol tartrate 50 mg tablet 2023-05 19:26: 59 02-26 00:00 :00 No 50mg Take 1 tablet by mouth in the morning and 1 tablet in the evening. [facility] escitalopra m oxalate (LEXAPRO) 10 mg tablet 2023-05 19:26: 59 02-26 00:00 :00 No 10mg Take 1 tablet by mouth in the morning. [facility] morphine (2 mg/mL) injection 4 mg 2023-05 17:45: 00 02-21 18:20 :00 No 4mg 4 mg, Slow IV Push, ONCE, 1 dose, On 02/22/24 at 1245, STAT [facility] proMETHazin e (PHENERGAN) 25 mg in NS 50 mL IV piggyback (CNR) 2023-05 16:45: 00 02-21 17:33 :00 No 25mg 25 mg, IV Piggyback, at 200 mL/hr Administer over 15 Minutes, ONCE, 1 dose, On 02/22/24 at 1145, [place] [facility] morphine (2 mg/mL) injection 4 mg 2023-05 16:00: 00 02-21 16:06 :00 No 4mg 4 mg, Slow IV Push, ONCE, 1 dose, On 02/22/24 at 1100, STAT [facility] famotidine (PEPCID (PF)) injection 20 mg 2023-05 15:00: 00 02-21 15:35 :00 No 20mg 20 mg, Slow IV Push, ONCE, 1 dose, On 02/22/24 at 1000, [place] [facility] ondansetron (ZOFRAN (PF)) injection 4 mg 2023-05 15:00: 00 02-21 15:34 :00 No 4mg 4 mg, Slow IV Push, ONCE, 1 dose, On 02/22/24 at 1000, [place] [facility] NaCl 0.9% (NS) bolus infusion 1,000 mL 2023-05 15:00: 00 02-21 18:06 :00 No 1000mL at 999 mL/hr, 1,000 mL, IV Infusion, ONCE, 1 dose, On 02/22/24 at 1000, STAT [facility] buPROPion XL 150 mg 24 hr tablet 01-22 00:00: 00 Yes 150mg Take 1 tablet by mouth every morning. [facility] cholestyram ine 4 gram powder 01-20 00:00: 00 Yes MIX AND DRINK 1 SCOOP BY MOUTH DAILY [facility] busPIRone 7.5 mg tablet 01-19 00:00: 00 Yes 7.5mg Take 1 tablet by mouth in the morning and 1 tablet in the evening. [facility] metoprolol tartrate 50 mg tablet 08-25 11:55: 42 Yes 50mg Take 1 tablet by mouth in the morning and 1 tablet in the evening. [facility] escitalopra m oxalate (LEXAPRO) 10 mg tablet 08-25 11:55: 42 Yes 10mg Take 1 tablet by mouth in the morning. [facility] divalproex ER 250 mg 24 hr tablet 08-23 00:00: 00 11-22 04:59 :00 No [id number] 250mg Take 1 tablet by mouth in the morning and 1 tablet in the evening. Do all this for 90 days. [facility] acetaminoph en-codeine 300-30 mg tablet 2024-0 4-13 00:00: 00 08-31 04:59 :00 No [id number] 1{tbl} Take 1 tablet by mouth every 6 (six) hours as needed for Pain (scale 4-6) or Pain (scale 7-10) for up to 7 days. Indication s: acute pain [facility] cefTRIAXone (ROCEPHIN) 1,000 mg in NaCl 0.9% (NS) 100 mL MINI-BAG 05-19 16:45: 00 05-19 17:24 :00 No 1000mg 1,000 mg, IV Piggyback, ONCE, 1 dose, On 05/19/23 at 1045, Administer over 30 Minutes, 100 mL
Reas on for Anti-Infec tive: Documented Infection< br>Documen renata Infection Site: Urine
D uration of Therapy: Other (see Comments) [facility] morpHINE (4 mg/mL) injection 4 mg 05-19 16:45: 00 05-19 16:53 :00 No 4mg 4 mg, Slow IV Push, ONCE, 1 dose, On 05/19/23 at 1045, STAT [facility] NaCl 0.9% (NS) bolus infusion 1,000 mL 05-19 16:00: 00 05-19 17:00 :00 No 1000mL at 999 mL/hr, 1,000 mL, IV Infusion, ONCE, 1 dose, On Sat05/19/23 at 1000, [place] [facility] iopamidol (ISOVUE 370-500 mL) injection 80 mL 05-19 15:50: 00 05-19 16:15 :00 No [id number] 80mL 80 mL, Intravenou s, ONCE, 1 dose, On Sat05/19/23 at 1015, Routine [facility] dicyclomine (BENTYL) tablet 20 mg 05-19 15:45: 00 05-19 16:09 :00 No 20mg 20 mg, Oral, ONCE, 1 dose, On Sat05/19/23 at 0945, [place] [facility] ondansetron (ZOFRAN (PF)) injection 4 mg 05-19 15:15: 00 05-19 15:50 :00 No 4mg 4 mg, Slow IV Push, ONCE, 1 dose, On 05/19/23 at 0915, [place] [facility] maalox:diph enhydrAMINE :lidocaine 2 % viscous 1:1:1 ([facility]) oral suspension 15 mL 05-19 15:15: 00 05-19 15:49 :00 No 15mL 15 mL, Oral, ONCE, 1 dose, On 05/19/23 at 0915, Routine [facility] famotidine (PEPCID (PF)) injection 20 mg 05-19 15:15: 00 05-19 15:51 :00 No 20mg 20 mg, Slow IV Push, ONCE, 1 dose, On 05/19/23 at 0915, [place] [facility] ondansetron 4 mg disintegrat ing tablet 05-19 00:00: 00 02-26 00:00 :00 No [id number] 4mg Take 1 tablet by mouth every 8 (eight) hours as needed for Nausea and Vomiting (N/V). [facility] sucralfate 1 gram tablet 05-19 00:00: 00 06-19 05:59 :00 No [id number] 1g Take 1 tablet by mouth before meals and at bedtime for 30 days. [facility] pantoprazol e 40 mg EC tablet 05-19 00:00: 00 06-19 05:59 :00 No [id number] 40mg Take 1 tablet by mouth in the morning for 30 days. [facility] cefdinir 300 mg capsule 05-19 00:00: 00 05-27 05:59 :00 No [id number] 300mg Take 1 capsule by mouth every 12 (twelve) hours for 7 days. [facility] morpHINE (2 mg/mL) injection 2 mg 01-15 19:15: 00 01-15 18:49 :00 No 2mg 2 mg, Slow IV Push, ONCE, 1 dose, On Sat01/15/23 at 1415, [facility] ondans[facility] (ZOFRAN) tablet 4 mg 01-15 18:15: 00 01-15 22:02 :00 No 4mg 4 mg, Oral, ONCE, 1 dose, On Sat01/15/23 at 1315, [facility]ine [facility] ondans[facility]ron 4 mg tablet 01-15 00:00: 00 02-26 00:00 :00 No [id number] 4mg Take 1 tablet by mouth every 8 (eight) hours as needed for Nausea and Vomiting (N/V). [facility] HYDROcodone -acetaminop hen 5-325 mg tablet 01-15 00:00: 00 01-23 04:59 :00 No [id number] 1{tbl} Take 1 tablet by mouth every 4 (four) hours as needed for Pain (scale 4-6) for up to 7 days. Indication s: acute pain [facility] morpHINE (2 mg/mL) injection 2 mg 01-14 16:11: 23 01-15 11:49 :59 No 2mg 2 mg, Slow IV Push, Q4HPRN, Starting on Sat01/14/23 at 1111, Until Sat01/15/23 at 0649, Routine, Pain (scale 7-10) [facility] methocarbam oL (ROBAXIN) tablet 500 mg 01-14 13:00: 00 Yes 500mg 500 mg, Oral, QID, First dose on Sat01/14/23 at 0800, Until Discontinu ed, Routine [facility] celecoxib (CELEBREX) capsule 100 mg 01-14 13:00: 00 Yes 100mg 100 mg, Oral, BID MEALS, First dose on Sat01/14/23 at 0800, Until Discontinu ed, Routine [facility] gabapentin (NEURONTIN) capsule 300 mg 01-14 01:30: 00 Yes 300mg 300 mg, Oral, TID, First dose on Sat01/13/23 at 2030, Until Discontinu ed, Routine [facility] acetaminoph en (TYLENOL) tablet 1,000 mg 01-14 01:30: 00 Yes 1000mg 1,000 mg, Oral, Q8H, First dose (after last modificati on) on 01/13/23 at 2030, Until Discontinu ed, Routine [facility] scopolamine transdermal (TRANSDERM- SCOP) patch 1.5 mg 01-13 00:30: 00 Yes 1.5mg 1.5 mg, Topical, Administer over 72 Hours, Q72H, First dose on 01/12/23 at 1930, Until Discontinu ed, Routine [facility] enoxaparin (LOVENOX) injection 40 mg 01-12 22:00: 00 Yes 40mg 40 mg, Subcutaneo us, DAILY, First dose on 01/12/23 at 1700, Until Discontinu ed, Routine [facility] FENTanyl PF (SUBLIMAZE (PF)) injection 100 mcg 01-12 20:30: 00 01-12 20:30 :00 No [id number] 100ug 100 mcg, Slow IV Push, ONCE, 1 dose, On 01/12/23 at 1530, Routine [facility] proMETHazin e (PHENERGAN) 25 mg in NS 50 mL IV piggyback (CNR) 01-12 17:11: 31 01-15 14:12 :44 No 25mg 25 mg, IV Piggyback, at 200 mL/hr Administer over 15 Minutes, Q4HPRN, Starting on 01/12/23 at 1211, Until 01/15/23 at 0912, Routine, Nausea and Vomiting (N/V) [facility] piperacilli n-tazobacta m (ZOSYN) 3.375 g in NaCl 0.9% (NS) 100 mL MINI-BAG 01-12 14:30: 00 01-16 14:29 :00 No 3.375g 3.375 g, IV Piggyback, Q8H ABX, 12 doses, First dose on 01/12/23 at 0930, Last dose on Sat01/16/23 at 0130, Administer over 4 Hours, 100 mL
Reas on for Anti-Infec tive: Documented Infection& lt;br>Docu mented Infection Site: Abdominal< br>Duratio n of Therapy: 7 days [facility] pantoprazol e (PROTONIX) EC tablet 40 mg 01-12 14:00: 00 Yes 40mg 40 mg, Oral, DAILY, First dose on Sat01/12/23 at 0900, Until Discontinu ed, Routine [facility] KCL (KLOR-CON M20) tablet 40 mEq 01-12 09:30: 00 01-12 09:25 :00 No 40meq 40 mEq, Oral, ONCE, 1 dose, On Sat01/12/23 at 0430, Routine [facility] diphenhydrA MINE (BENADRYL) tablet 25 mg 01-12 08:31: 43 Yes 25mg 25 mg, Oral, QHSPRN, Starting on Sat01/12/23 at 0331, Until Discontinu ed, Routine, Itching, Sleep [facility] lactated ringers IV infusion 1,000 mL 01-12 08:15: 00 01-15 11:48 :29 No 1000mL at 50 mL/hr, 1,000 mL, IV Infusion, CONTINUOUS , Starting on Sat01/12/23 at 0315, Until Sat01/15/23 at 0648, Routine [facility] piperacilli n-tazobacta m (ZOSYN) 3.375 g in NaCl 0.9% (NS) 100 mL MINI-BAG 01-12 06:45: 00 01-12 08:43 :00 No 3.375g 3.375 g, IV Piggyback, ONCE, 1 dose, On 01/12/23 at 0145, Administer over 30 Minutes, 100 mL
Reas on for Anti-Infec tive: Documented Infection< br>Documen renata Infection Site: Abdominal< br>Duratio n of Therapy: 7 days [facility] lactated ringers IV infusion 1,000 mL 01-12 06:00: 00 01-12 08:13 :38 No 1000mL at 100 mL/hr, 1,000 mL, IV Infusion, CONTINUOUS , Starting on 01/12/23 at 0100, Until 01/12/23 at 0313, Routine [facility] morpHINE (4 mg/mL) injection 4 mg 01-12 05:49: 22 01-14 05:48 :22 No 4mg 4 mg, Slow IV Push, Q4HPRN, Starting on 01/12/23 at 0049, Until 01/14/23 at 0048, Routine, Pain (scale 7-10) [facility] HYDROcodone -acetaminop hen (NORCO 5) 5-325 mg tablet 1 tablet 01-12 05:49: 18 Yes 1{tbl} 1 tablet, Oral, Q4HPRN, Starting on 01/12/23 at 0049, Until Discontinu ed, Routine, Pain (scale 4-6) [facility] ondansetron (ZOFRAN (PF)) injection 4 mg 01-12 05:49: 11 01-15 17:31 :12 No 4mg 4 mg, Slow IV Push, Q6HPRN, Starting on 01/12/23 at 0049, Until Sat01/15/23 at 1231, Routine, Nausea and Vomiting (N/V) [facility] ondansetron (ZOFRAN (PF)) injection 4 mg 01-12 04:45: 00 01-12 04:45 :00 No 4mg 4 mg, Slow IV Push, ONCE, 1 dose, On Sat01/11/23 at 2345, [place] [facility] morpHINE (4 mg/mL) injection 4 mg 01-12 04:45: 00 01-12 04:45 :00 No 4mg 4 mg, Slow IV Push, ONCE, 1 dose, On Sat01/11/23 at 2345, STAT [facility] proMETHazin e (PHENERGAN) 25 mg in NS 50 mL IV piggyback (CNR) 01-12 04:45: 00 01-12 06:00 :00 No 25mg 25 mg, IV Piggyback, at 200 mL/hr Administer over 15 Minutes, ONCE, 1 dose, On Sat01/11/23 at 2345, [facility] iopamidol (ISOVUE 370-500 mL) injection 80 mL 01-12 03:33: 00 01-12 03:25 :00 No [id number] 80mL 80 mL, Intravenou s, ONCE, 1 dose, On Sat01/11/23 at 2245, Routine [facility] maalox:diph enhydrAMINE :lidocaine 2 % viscous 1:1:1 ([facility]) oral suspension 15 mL 01-12 03:30: 00 01-12 03:07 :00 No 15mL 15 mL, Oral, ONCE, 1 dose, On Sat01/11/23 at 2230, [facility] morpHINE (4 mg/mL) injection 4 mg [...] ONCE, 1 dose, On Sat11/21/22 at 1715, [place] [facility] butalbital- acetaminoph en-caff (ESGIC) 50-325-40 mg tablet 1 tablet 11-21 21:30: 00 11-21 21:39 :00 No 1{tbl} 1 tablet, Oral, ONCE, 1 dose, On Sat11/21/22 at 1630, [place] [facility] ciprofloxac in HCl 500 mg tablet 11-11 00:00: 00 02-26 00:00 :00 No TAKE 1 TABLET BY MOUTH EVERY 12 HOURS FOR 7 DAYS [facility] methocarbam oL 750 mg tablet 11-07 00:00: 00 Yes 750mg Take 1 tablet by mouth 2 (two) times daily as needed. [facility] methocarbam oL 750 mg tablet 11-07 00:00: 00 02-26 00:00 :00 No 1{tbl} Take 1 tablet by mouth 2 (two) times daily as needed. [facility] baclofen 10 mg tablet 10-27 00:00: 00 Yes 10mg Take 1 tablet by mouth every 6 (six) hours as needed. [facility] baclofen 10 mg tablet 10-27 00:00: 00 02-26 00:00 :00 No 1{tbl} Take 1 tablet by mouth every 6 (six) hours as needed. [facility] tiZANidine 4 mg tablet 10-24 00:00: 00 Yes 4mg Take 1 tablet by mouth every 6 (six) hours as needed. [facility] tiZANidine 4 mg tablet 10-24 00:00: 00 02-26 00:00 :00 No 1{tbl} Take 1 tablet by mouth every 6 (six) hours as needed. [facility] traZODone 50 mg tablet 10-22 00:00: 00 Yes 50mg Take 1 tablet by mouth at bedtime. [facility] traZODone 50 mg tablet 2023-0 6-12 00:00: 00 02-26 00:00 :00 No 1{tbl} Take 1 tablet by mouth at bedtime. [facility] hydrOXYzine 50 mg tablet 10-02 00:00: 00 Yes 50mg Take 1 tablet by mouth every 6 (six) hours as needed. [facility] hydrOXYzine 50 mg tablet 10-02 00:00: 00 02-26 00:00 :00 No 1{tbl} Take 1 tablet by mouth every 6 (six) hours as needed. [facility] mirtazapine 15 mg tablet 12 00:00: 00 02-26 00:00 :00 No 15mg Take 1 tablet by mouth at bedtime. [facility] meloxicam 15 mg tablet 09 00:00: 00 Yes 15mg Take 1 tablet by mouth in the morning. [facility] meloxicam 15 mg tablet 09-18 00:00: 00 02-26 00:00 :00 No 1{tbl} Take 1 tablet by mouth in the morning. [facility] verapamil SR 120 mg ER tablet 08 00:00: 00 Yes 120mg Take 1 tablet by mouth in the morning. [facility] verapamil SR 120 mg ER tablet 08 00:00: 00 02-26 00:00 :00 No 1{tbl} Take 1 tablet by mouth in the morning. [facility] OLANZapine 10 mg tablet 09-06 00:00: 00 02-26 00:00 :00 No 10mg Take 1 tablet by mouth in the morning. [facility] cloNIDine 0.1 mg tablet 09-06 00:00: 00 02-26 00:00 :00 No TAKE 1-2 TABLETS BY MOUTH AT BEDTIME NEEDED FOR SLEEP AND ANXIETY [facility] NaCl 0.9% (NS) bolus infusion 1,000 mL 09-05 18:15: 00 09-05 18:08 :00 No 1000mL at 999 mL/hr, 1,000 mL, IV Infusion, ONCE, 1 dose, On Sat09/05/22 at 1315, STAT [facility] acetaminoph en (TYLENOL) tablet 650 mg 09-05 17:30: 00 09-05 17:24 :00 No 650mg 650 mg, Oral, ONCE, 1 dose, On Sat09/05/22 at 1230, [place] [facility] ondansetron (ZOFRAN (PF)) injection 4 mg 09-05 17:15: 00 09-05 17:23 :00 No 4mg 4 mg, Slow IV Push, ONCE, 1 dose, On Sat09/05/22 at 1215, [facility] magnesium sulfate in water 2 gram/50 mL (4 %) infusion 2 g 09-05 16:15: 00 09-05 16:10 :00 No 2g 2 g, IV Piggyback, Administer over 30 Minutes, ONCE, 1 dose, On Sat09/05/22 at 1115, Routine [facility] diphenhydrA MINE (BENADRYL) injection 25 mg 09-05 16:00: 00 09-05 16:01 :00 No 25mg 25 mg, Slow IV Push, ONCE, 1 dose, On Sat09/05/22 at 1100, STAT [facility] ketorolac (TORADOL) injection 30 mg 09-05 15:30: 00 09-05 14:38 :00 No 30mg 30 mg, Slow IV Push, ONCE, 1 dose, On Sat09/05/22 at 1030, Routine [facility] NaCl 0.9% (NS) bolus infusion 1,000 mL 09-05 15:00: 00 09-05 17:12 :00 No 1000mL at 999 mL/hr, 1,000 mL, IV Infusion, ONCE, 1 dose, On Sat09/05/22 at 1000, STAT [facility] methylpredn isolone sod succ (SOLU-MEDRO L) injection 125 mg 09-05 14:45: 00 09-05 14:35 :00 No 125mg 125 mg, Intravenou s, ONCE, 1 dose, On Sat09/05/22 at 0945, 2 mL [facility] butalbital- acetaminoph en-caff (ESGIC) 50-325-40 mg tablet 1 tablet 09-05 14:00: 00 09-05 14:34 :00 No 1{tbl} 1 tablet, Oral, ONCE, 1 dose, On Sat09/05/22 at 0900, [place] [facility] diphenhydrA MINE (BENADRYL) injection 25 mg 09-05 14:00: 00 09-05 14:39 :00 No 25mg 25 mg, Slow IV Push, ONCE, 1 dose, On Sat09/05/22 at 0900, STAT [facility] proMETHazin e (PHENERGAN) 12.5 mg in NaCl 0.9% (NS) 50 mL IV piggyback 09-05 14:00: 00 09-05 14:40 :00 No 12.5mg 12.5 mg, IV Piggyback, ONCE, 1 dose, On Sat09/05/22 at 0900, [facility] carvediloL 25 mg tablet 09-05 00:00: 00 02-26 00:00 :00 No [id number] 25mg Take 1 tablet by mouth in the morning and 1 tablet in the evening. Take with meals. [facility] losartan 50 mg tablet 09-05 00:00: 00 02-26 00:00 :00 No [id number] 50mg Take 1 tablet by mouth in the morning and 1 tablet in the evening. [facility] ibuprofen 800 mg tablet 08-05 00:00: 00 02-26 00:00 :00 No 800mg Take 1 tablet by mouth 3 (three) times daily as needed. [facility] cyclobenzap rine 10 mg tablet 08-05 00:00: 00 02-26 00:00 :00 No 10mg Take 1 tablet by mouth 3 (three) times daily as needed. [facility] maalox:diph enhydrAMINE :lidocaine 2 % viscous 1:1:1 ([facility]) oral suspension 15 mL 08-01 00:45: 00 08-01 00:44 :00 No 15mL 15 mL, Oral, ONCE, 1 dose, On Sat07/31/22 at 1945, [place] [facility] ketorolac (TORADOL) injection 15 mg 08-01 00:15: 00 08-01 00:44 :00 No 15mg 15 mg, Slow IV Push, ONCE, 1 dose, On Sat07/31/22 at 191, Routine [facility] ondansetron (ZOFRAN (PF)) injection 4 mg 08-01 00:15: 00 08-01 00:46 :00 No 4mg 4 mg, Slow IV Push, ONCE, 1 dose, On Sat07/31/22 at 1914, [place] [facility] famotidine (PEPCID (PF)) injection 20 mg 08-01 00:15: 00 08-01 00:46 :00 No 20mg 20 mg, Slow IV Push, ONCE, 1 dose, On Sat07/31/22 at 1914, [place] [facility] ondansetron 4 mg disintegrat ing tablet 07-31 00:00: 00 05-19 00:00 :00 No [id number] 4mg Take 1 tablet by mouth every 8 (eight) hours as needed for Nausea and Vomiting (N/V). [facility] sucralfate 1 gram tablet 07-31 00:00: 00 05-19 00:00 :00 No [id number] 1g Take 1 tablet by mouth before meals and at bedtime. [facility] pantoprazol e 40 mg EC tablet 07-31 00:00: 00 08-15 04:59 :00 No [id number] 40mg Take 1 tablet by mouth in the morning for 14 days. [facility] tamsulosin 0.4 mg 24 hr capsule 3-15 00:00: 00 Yes .4mg Take 1 capsule by mouth in the morning. [facility] tamsulosin 0.4 mg 24 hr capsule 3-15 00:00: 00 02-26 00:00 :00 No 1{capsu le} Take 1 capsule by mouth in the morning. [facility] traMADoL 50 mg tablet 3-13 00:00: 00 02-26 00:00 :00 No 50mg Take 1 tablet by mouth. [facility] ibuprofen 600 mg tablet 3-05 00:00: 00 07-31 00:00 :00 No [id number] 600mg Take 1 tablet by mouth every 6 (six) hours as needed for Pain (scale 4-6). [facility] citalopram 10 mg tablet 2- 00:00: 00 Yes 10mg Take 1 tablet by mouth in the morning. [facility] citalopram 10 mg tablet 2-17 00:00: 00 02-26 00:00 :00 No 1{tbl} Take 1 tablet by mouth in the morning. [facility] QUEtiapine 400 mg tablet 2-17 00:00: 00 02-26 00:00 :00 No [facility] gabapentin 600 mg tablet 2-17 00:00: 00 02-26 00:00 :00 No [facility] methylPREDN ISolone (MEDROL, ANABELA,) 4 mg tablets 2- 00:00: 00 Yes [id number] Take by mouth SEE-INSTRU CTIONS. follow package directions [facility] bromphenira mine-pseudo ephedrine-D M (BROMFED DM) 2-30-10 mg/5 mL syrup 2-11 00:00: 00 07-04 05:59 :00 No [id number] 5mL Take 5 mL by mouth 4 (four) times daily as needed for Cold symptoms for up to 10 days. [facility] methocarbam oL 750 mg tablet 06-23 00:00: 00 07-01 05:59 :00 No [id number] 750mg Take 1 tablet by mouth 4 (four) times daily for 7 days. [facility] magnesium sulfate in water 2 gram/50 mL (4 %) infusion 2 g 2021-05 21:00: 00 05-05 21:15 :00 No 2g 2 g, IV Piggyback, Administer over 15 Minutes, ONCE, 1 dose, On 05/05/22 at 1500, [facility] butalbital- acetaminoph en-caff (ESGIC) 50-325-40 mg tablet 1 tablet 2021-05 20:15: 00 05-05 20:56 :00 No 1{tbl} 1 tablet, Oral, ONCE, 1 dose, On 05/05/22 at 1415, [facility] dexamethaso ne sod phos PF injection 10 mg 2021-05 20:15: 00 05-05 21:00 :00 No 10mg 10 mg, Slow IV Push, ONCE, 1 dose, On 05/05/22 at 1415, 1 mL [facility] NaCl 0.9% (NS) bolus infusion 1,000 mL 2021-05 20:00: 00 05-05 21:45 :00 No 1000mL at 999 mL/hr, 1,000 mL, IV Infusion, ONCE, 1 dose, On 05/05/22 at 1400, [facility] diphenhydrA MINE (BENADRYL) injection 25 mg 2021-05 19:15: 00 05-05 19:42 :00 No 25mg 25 mg, Slow IV Push, ONCE, 1 dose, On 05/05/22 at 1315, STAT [facility] ondansetron (ZOFRAN (PF)) injection 4 mg 2021-05 19:15: 00 05-05 19:45 :00 No 4mg 4 mg, Slow IV Push, ONCE, 1 dose, On 05/05/22 at 1315, [place] [facility] ketorolac (TORADOL) injection 30 mg 2021-05 19:15: 00 05-05 19:44 :00 No 30mg 30 mg, Slow IV Push, ONCE, 1 dose, On 05/05/22 at 1315, Routine [facility] butalbital- acetaminoph en-caff 50-325-40 mg tablet 2021-05 00:00: 00 Yes [id number] 1{tbl} Take 1 tablet by mouth every 4 (four) hours as needed for Pain (scale 7-10). [facility] HYDROcodone -acetaminop hen (NORCO) 10-325 mg tablet 1 tablet 2021-05 16:30: 00 04-26 15:23 :00 No 1{tbl} 1 tablet, Oral, ONCE, 1 dose, On Kathie 04/26/22 at 1030, Routine [facility] diphenhydrA MINE (BENADRYL) tablet 25 mg 2021-05 15:45: 00 04-26 15:53 :00 No 25mg 25 mg, Oral, ONCE, 1 dose, On Kathie 04/26/22 at 0945, [place] [facility] NaCl 0.9% (NS) bolus infusion 1,000 mL 2021-05 15:45: 00 04-26 15:55 :00 No 1000mL at 999 mL/hr, 1,000 mL, IV Piggyback, ONCE, 1 dose, On Kathie 04/26/22 at 0945, STAT [facility] ondansetron (ZOFRAN (PF)) injection 4 mg 2021-05 14:45: 00 04-26 14:52 :00 No 4mg 4 mg, Slow IV Push, ONCE, 1 dose, On Kathie 04/26/22 at 0845, Routine [facility] cephALEXin (KEFLEX) 500 mg capsule 2021-05 00:00: 00 05-04 05:59 :00 No [id number] 500mg Take 1 capsule by mouth in the morning and 1 capsule at noon and 1 capsule in the evening. Do all this for 7 days. [facility] ondansetron (ZOFRAN) 4 mg tablet 2021-05 00:00: 00 07-31 00:00 :00 No 4mg Take 1 tablet by mouth every 8 (eight) hours as needed for Nausea and Vomiting (N/V). [facility] galcanezuma b-gnlm prefilled (EMGALITY) subcutaneou s injection 2021-05 00:00: 00 02-26 00:00 :00 No [id number] 120mg inject 120 mg under the skin once every month. [facility] methocarbam oL (ROBAXIN) injection 1,000 mg 2021-05 04:00: 00 Yes 1000mg 1,000 mg, Intravenou s, Q8H, First dose on 04/07/22 at 2200, Until Discontinu ed, Routine [facility] ketorolac (TORADOL) injection 30 mg 2021-05 00:45: 00 04-07 23:45 :00 No 30mg 30 mg, Slow IV Push, ONCE, 1 dose, On 04/07/22 at 1845, Routine [facility] HYDROcodone -acetaminop hen (NORCO) 10-325 mg tablet 1 tablet 2021-05 00:30: 00 04-07 23:45 :00 No 1{tbl} 1 tablet, Oral, ONCE NOW, 1 dose, On 04/07/22 at 1830, Routine [facility] diphenhydrA MINE (BENADRYL) injection 12.5 mg 2021-05 23:45: 00 04-07 23:46 :00 No 12.5mg 12.5 mg, Slow IV Push, ONCE, 1 dose, On 04/07/22 at 1745, STAT [facility] butorphanol (STADOL) injection 1 mg 2021-05 23:15: 00 04-07 22:48 :00 No 1mg 1 mg, IV Push, ONCE, 1 dose, On 04/07/22 at 1715, Routine [facility] NaCl 0.9% (NS) bolus infusion 1,000 mL 2021-05 23:15: 00 04-07 23:49 :00 No 1000mL at 999 mL/hr, 1,000 mL, IV Infusion, ONCE, 1 dose, On 04/07/22 at 1715, [place] [facility] ketorolac (TORADOL) injection 15 mg 2021-05 19:30: 00 03-24 18:45 :00 No 15mg 15 mg, Slow IV Push, ONCE, 1 dose, On 03/24/22 at 1330, Routine [facility] butorphanol (STADOL) injection 1 mg 2021-05 18:00: 00 03-24 17:26 :00 No 1mg 1 mg, Intravenou s, ONCE, 1 dose, On 03/24/22 at 1200, Routine [facility] proMETHazin e (PHENERGAN) 25 mg in NaCl 0.9% (NS) 50 mL IV piggyback 2021-05 18:00: 00 03-24 18:13 :00 No 25mg 25 mg, IV Piggyback, ONCE, 1 dose, On 03/24/22 at 1200, [place] [facility] butorphanol (STADOL) injection 1 mg 2021-05 17:15: 00 03-24 16:26 :00 No 1mg 1 mg, IV Push, ONCE, 1 dose, On 03/24/22 at 1115, Routine [facility] diphenhydrA MINE (BENADRYL) injection 25 mg 2021-05 15:30: 00 03-24 15:40 :00 No 25mg 25 mg, Slow IV Push, ONCE, 1 dose, On 03/24/22 at 0930, STAT [facility] ondansetron (ZOFRAN (PF)) injection 4 mg 2021-05 15:30: 00 03-24 14:25 :00 No 4mg 4 mg, Slow IV Push, ONCE, 1 dose, On 03/24/22 at 0930, [place] [facility] NaCl 0.9% (NS) IV infusion 1,000 mL 2021-05 15:15: 00 03-24 17:25 :00 No 1000mL at 999 mL/hr, Intravenou s, ONCE, 1 dose, On 03/24/22 at 0915, [place] [facility] magnesium sulfate in water 2 gram/50 mL (4 %) infusion 2 g 2021-05 15:00: 00 03-24 14:47 :00 No 2g 2 g, IV Piggyback, Administer over 20 Minutes, ONCE, 1 dose, On 03/24/22 at 0900, Routine [facility] dexamethaso ne sod phos PF injection 6 mg 2021-05 14:15: 00 03-24 14:14 :00 No 6mg 6 mg, Slow IV Push, ONCE, 1 dose, On 03/24/22 at 0815, 1 mL [facility] diphenhydrA MINE (BENADRYL) injection 25 mg 2021-05 14:15: 00 03-24 14:16 :00 No 25mg 25 mg, Slow IV Push, ONCE, 1 dose, On 03/24/22 at 0815, STAT [facility] ALBUTEROL INHALE 2021-05 07:58: 13 03-24 00:00 :00 No [facility] rizatriptan 10 mg tablet 2021-05 00:00: 00 02-26 00:00 :00 No [id number] 10mg Take 1 tablet by mouth as needed for Migraine. May repeat in 2 hours if needed [facility] Butalbital- Acetaminoph en-Caff (FIORICET) 50-300-40 mg per capsule 2021-05 00:00: 00 02-26 00:00 :00 No [id number] 1{capsu le} Take 1 capsule by mouth every 6 (six) hours as needed for Other (headache) . [facility] magnesium oxide 200 mg magnesium Tab 2021-05 00:00: 00 04-07 00:00 :00 No [id number] 200mg Take 200 mg by mouth 2 (two) times daily. Indication s: headache [facility] SUMAtriptan 50 mg tablet 2021-05 00:00: 00 02-26 00:00 :00 No 50mg Take 1 tablet by mouth as needed for Migraine. Take one tablet at onset of migraine, may take another tablet 2 hours after initial dose if no relief with first dose. DO NOT EXCEED 100mg in a 24 hour period. [facility] FENTanyl PF (SUBLIMAZE (PF)) injection 50 mcg 2021-05 15:30: 00 03-15 14:56 :00 No 50ug 50 mcg, Slow IV Push, ONCE, 1 dose, On [place] 03/15/22 at 1030, Routine [facility] proMETHazin e (PHENERGAN) tablet 25 mg 2021-05 14:45: 00 03-15 14:55 :00 No 25mg 25 mg, Oral, ONCE, 1 dose, On [place] 03/15/22 at 0945, [place] [facility] FENTanyl PF (SUBLIMAZE (PF)) injection 50 mcg 2021-05 14:45: 00 03-15 13:58 :00 No 50ug 50 mcg, Slow IV Push, ONCE, 1 dose, On [place] 03/15/22 at 0945, Routine [facility] ondansetron (ZOFRAN (PF)) injection 4 mg 2021-05 14:00: 00 03-15 13:58 :00 No 4mg 4 mg, Slow IV Push, ONCE, 1 dose, On [place] 03/15/22 at 0900, [place] [facility] carvediloL 25 mg tablet 2021-05 00:00: 00 09-05 00:00 :00 No [id number] 25mg Take 1 tablet by mouth in the morning and 1 tablet in the evening. Take with meals. [facility] ondansetron 4 mg disintegrat ing tablet 2021-05 00:00: 04-07 00:00 :00 No [id number] 4mg Take 1 tablet by mouth every 8 (eight) hours as needed for Nausea and Vomiting (N/V). [facility] ketorolac 10 mg tablet 2021-05 00:00: 04-07 00:00 :00 No [id number] 10mg Take 1 tablet by mouth every 6 (six) hours as needed for Pain (scale 7-10). [facility] proMETHazin e 25 mg tablet 2021-05 00:00: 00 04-07 00:00 :00 No [id number] 25mg Take 1 tablet by mouth every 6 (six) hours as needed for N/V unresponsi ve to Ondansetro n. [facility] cephALEXin 500 mg capsule 2021-05 00:00: 00 03-19 05:59 :00 No [id number] 500mg Take 1 capsule by mouth 4 (four) times daily for 3 days. [facility] predniSONE 20 mg tablet 2021-05 00:00: 00 03-15 04:59 :00 No [id number] 20mg Take 1 tablet by mouth in the morning for 2 days. [facility] methocarbam oL (ROBAXIN) tablet 500 mg 2021-05 16:45: 00 03-11 17:08 :00 No 500mg 500 mg, Oral, ONCE, 1 dose, On 03/11/22 at 1200, [place] [facility] dexamethaso ne sod phos PF injection 10 mg 2021-05 16:00: 00 03-11 16:00 :00 No 10mg 10 mg, Slow IV Push, ONCE, 1 dose, On 03/11/22 at 1100, 1 mL [facility] diphenhydrA MINE (BENADRYL) injection 25 mg 2021-05 15:46: 00 03-11 16:00 :00 No 25mg 25 mg, Slow IV Push, ONCE, 1 dose, On 03/11/22 at 1100, STAT [facility] NaCl 0.9% (NS) IV infusion 1,000 mL 2021-05 15:45: 00 03-11 16:04 :00 No 1000mL at 999 mL/hr, Intravenou s, ONCE, 1 dose, On 03/11/22 at 1045, Routine [facility] butalbital- acetaminoph en-caff (ESGIC) 50-325-40 mg tablet 1 tablet 2021-05 15:00: 00 03-11 15:05 :00 No 1{tbl} 1 tablet, Oral, ONCE, 1 dose, On Sat03/11/22 at 1015, [place] [facility] ketorolac (TORADOL) injection 15 mg 2021-05 14:45: 00 03-11 15:05 :00 No 15mg 15 mg, Slow IV Push, ONCE, 1 dose, On 03/11/22 at 0945, [place] [facility] proMETHazin e (PHENERGAN) 12.5 mg in NaCl 0.9% (NS) 50 mL IV piggyback 2021-05 14:45: 00 03-11 15:04 :00 No 12.5mg 12.5 mg, IV Piggyback, ONCE, 1 dose, On 03/11/22 at 0945, [place] [facility] proMETHazin e 25 mg tablet 2021-05 00:00: 00 07-31 00:00 :00 No [id number] 25mg Take 1 tablet by mouth every 6 (six) hours as needed for Nausea and Vomiting (N/V). [facility] methocarbam oL 500 mg tablet 2021-05 00:00: 00 04-07 00:00 :00 No [id number] 500mg Take 1 tablet by mouth 3 (three) times daily as needed for Pain (scale 7-10). [facility] topiramate 25 mg tablet 2021-05 00:00: 00 02-26 00:00 :00 No [id number] 100mg Take 4 tablets by mouth in the morning. [facility] diphenhydrA MINE 25 mg capsule 2021-05 09:39: 59 02-27 00:00 :00 No 25mg Take 25 mg by mouth every 6 (six) hours as needed for Allergies. [facility] citalopram hydrobromid e (CITALOPRAM ORAL) 2021-05 09:39: 49 02-27 00:00 :00 No Take by mouth. [facility] carbamazepi ne (TEGRETOL ORAL) 2021-05 09:39: 28 02-27 00:00 :00 No Take by mouth. [facility] albuterol 90 mcg/actuati on inhaler 2021-05 00:00: 00 02-26 00:00 :00 No [id number] 2{puff} Inhale 2 Puffs every 6 (six) hours as needed for Wheezing or Shortness of Breath. [facility] SUMAtriptan 50 mg tablet 2021-05 00:00: 00 03-21 00:00 :00 No 50mg Take 50 mg by mouth as needed for Migraine. Take one tablet at onset of migraine, may take another tablet 2 hours after initial dose if no relief with first dose. DO NOT EXCEED 100mg in a 24 hour period. [facility] benzonatate 200 mg capsule 2021-05 00:00: 00 03-07 04:59 :00 No [id number] 200mg Take 1 capsule by mouth 3 (three) times daily as needed for Cough for up to 7 days. [facility] butalbital- acetaminoph en-caff (ESGIC) 50-325-40 mg tablet 1 tablet 2021-05 08:15: 00 02-21 08:09 :00 No 1{tbl} 1 tablet, Oral, ONCE, 1 dose, On Sat02/21/22 at 0315, [place] [facility] butorphanol (STADOL) injection 1 mg 2021-05 08:15: 00 02-21 07:28 :00 No 1mg 1 mg, IV Push, ONCE, 1 dose, On Sat02/21/22 at 0315, Routine [facility] NaCl 0.9% (NS) bolus infusion 1,000 mL 2021-05 07:15: 00 02-21 08:40 :00 No 1000mL at 999 mL/hr, 1,000 mL, IV Infusion, ONCE, 1 dose, On Sat02/21/22 at 0215, [place] [facility] proMETHazin e (PHENERGAN) 12.5 mg in NaCl 0.9% (NS) 50 mL IV piggyback 2021-05 06:30: 00 02-21 06:38 :00 No 12.5mg 12.5 mg, IV Piggyback, ONCE, 1 dose, On Sat02/21/22 at 0130[facility] 10 mg 2021-05 06:30: 00 02-21 06:38 :00 No 10mg 10 mg, Slow IV Push, ONCE, 1 dose, On Sat02/21/22 at 0130, 1 mL [facility] ketorolac (TORADOL) injection 15 mg 2021-05 06:30: 00 02-21 06:38 :00 No 15mg 15 mg, Slow IV Push, ONCE, 1 dose, On Sat02/21/22 at 0130[facility] diphen[facility] (BENADRYL) injection 25 mg 2021-05 06:30: 00 02-21 06:38 :00 No 25mg 25 mg, Slow IV Push, ONCE, 1 dose, On Sat02/21/22 at 0130, STAT [facility] FENTanyl PF (SUBLIMAZE (PF)) injection 50 mcg 2021-05 20:30: 00 02-18 19:44 :00 No 50ug 50 mcg, Slow IV Push, ONCE, 1 dose, On Sat02/18/22 at 1530, Routine [facility] ketorolac (TORADOL) injection 30 mg 2021-05 20:15: 00 02-18 20:09 :00 No 30mg 30 mg, Slow IV Push, ONCE, 1 dose, On [place] 02/18/22 at 1515[facility] iop[facility] (ISOVUE 370-500 mL) injection 60 mL 2021-05 19:30: 00 02-18 17:30 :00 No [id number] 60mL 60 mL, Intravenou s, ONCE, 1 dose, On [place] 02/18/22 at 1430, Routine [facility] proMETHazin e (PHENERGAN) 12.5 mg in NaCl 0.9% (NS) 50 mL IV piggyback 2021-05 18:15: 00 02-18 18:19 :00 No 12.5mg 12.5 mg, IV Piggyback, ONCE, 1 dose, On [place] 02/18/22 at 1315[facility] F[facility] (SUBLIMAZE (PF)) injection 50 mcg 2021-05 18:00: 00 02-18 17:26 :00 No 50ug 50 mcg, Slow IV Push, ONCE, 1 dose, On [place] 02/18/22 at 1300, Routine [facility] ondansetron (ZOFRAN (PF)) injection 4 mg 2021-05 17:15: 00 02-18 17:27 :00 No 4mg 4 mg, Slow IV Push, ONCE, 1 dose, On [place] 02/18/22 at 1215, [facility] morpH[facility] (2 mg/mL) injection 4 mg 01-18 15:15: 00 01-18 14:49 :00 No 4mg 4 mg, Slow IV Push, ONCE, 1 dose, On [place] 01/18/22 at 1015, STAT [facility] ondansetron (ZOFRAN (PF)) injection 4 mg 01-18 13:30: 00 01-18 13:33 :00 No 4mg 4 mg, Slow IV Push, ONCE, 1 dose, On [place] 01/18/22 at 0830, [facility] mor[facility]INE (4 mg/mL) injection 4 mg 01-18 13:30: 00 01-18 13:34 :00 No 4mg 4 mg, Slow IV Push, ONCE, 1 dose, On [place] 01/18/22 at 0830, STAT [facility] morpHINE (4 mg/mL) injection 4 mg 01-18 12:30: 00 01-18 11:39 :00 No 4mg 4 mg, Slow IV Push, ONCE, 1 dose, On [place] 01/18/22 at 0730, STAT [facility] famotidine (PEPCID (PF)) injection 20 mg 01-18 11:30: 00 01-18 10:52 :00 No 20mg 20 mg, Slow IV Push, ONCE, 1 dose, On [place] 01/18/22 at 0630, [facility] ondansetron (ZOFRAN (PF)) injection 4 mg 01-18 11:30: 00 01-18 10:52 :00 No 4mg 4 mg, Slow IV Push, ONCE, 1 dose, On [place] 01/18/22 at 0630, [facility] iodixanoL (VISIPAQUE 270-150 mL) injection 80 mL 01-18 11:21: 00 01-18 11:15 :00 No [id number] 80mL 80 mL, Intravenou s, ONCE, 1 dose, On [place] 01/18/22 at 0630, Routine [facility] NaCl 0.9% (NS) bolus infusion 1,000 mL 01-18 11:15: 00 01-18 12:59 :00 No 1000mL at 999 mL/hr, 1,000 mL, IV Infusion, ONCE, 1 dose, On [place] 01/18/22 at 0615, [facility] morpHINE (4 mg/mL) injection 4 mg 01-18 10:45: 00 01-18 10:52 :00 No 4mg 4 mg, Slow IV Push, ONCE, 1 dose, On [place] 01/18/22 at 0545, STAT [facility] traMADoL 50 mg tablet 01-18 00:00: 02-27 00:00 :00 No [id number] 50mg Take 1 tablet by mouth every 6 (six) hours as needed for Pain (scale 7-10). Indication s: acute pain [facility] ondansetron 4 mg disintegrat ing tablet 01-18 00:00: 00 02-27 00:00 :00 No [id number] 4mg Take 1 tablet by mouth every 8 (eight) hours as needed for Nausea and Vomiting (N/V). [facility] ibuprofen 600 mg tablet 01-18 00:00: 00 02-27 00:00 :00 No [id number] 600mg Take 1 tablet by mouth every 6 (six) hours as needed for Pain (scale 4-6). [facility] predniSONE 20 mg tablet 01-16 00:00: 00 01-24 04:59 :00 No [id number] 40mg Take 2 tablets by mouth in the morning for 7 days. [facility] morpHINE (4 mg/mL) injection 4 mg 01-15 16:15: 00 01-15 15:28 :00 No 4mg 4 mg, Slow IV Push, ONCE, 1 dose, On Sat01/15/22 at 1115, [facility] proMETHazin e (PHENERGAN) 12.5 mg in NaCl 0.9% (NS) 50 mL IV piggyback 01-15 15:30: 00 01-15 15:28 :00 No 12.5mg 12.5 mg, IV Piggyback, ONCE, 1 dose, On Sat01/15/22 at 1030[facility] NaCl 0.9% (NS) bolus infusion [...] ONCE, 1 dose, On Sat01/15/22 at 0915, [facility] dexamethaso ne sod phos PF injection 10 mg 01-15 14:15: 00 01-15 14:37 :00 No 10mg 10 mg, Slow IV Push, ONCE, 1 dose, On Sat01/15/22 at 0915, 1 mL [facility] proMETHazin e 25 mg tablet 01-15 00:00: 00 02-27 00:00 :00 No [id number] 25mg Take 1 tablet by mouth every 6 (six) hours as needed for Nausea and Vomiting (N/V). [facility] ondansetron (ZOFRAN-ODT ) disintegrat ing tablet 4 mg 01-09 01:45: 00 01-09 00:56 :00 No 4mg 4 mg, Oral, ONCE, 1 dose, On Sat01/08/22 at 2045, Routine [facility] HYDROcodone -acetaminop hen (NORCO 5) 5-325 mg tablet 1 tablet 01-09 00:45: 00 01-09 00:37 :00 No 1{tbl} 1 tablet, Oral, ONCE, 1 dose, On Sat01/08/22 at 1945, [facility] diphenhydrA MINE (BENADRYL) injection 25 mg 01-08 23:45: 00 01-08 23:51 :00 No 25mg 25 mg, Slow IV Push, ONCE, 1 dose, On Sat01/08/22 at 1845, STAT [facility] dexamethaso ne sod phos PF injection 10 mg 01-08 23:45: 00 01-08 23:50 :00 No 10mg 10 mg, Slow IV Push, ONCE, 1 dose, On Sat01/08/22 at 1845, 1 mL [facility] ketorolac (TORADOL) injection 30 mg 01-08 23:45: 00 01-08 23:51 :00 No 30mg 30 mg, Slow IV Push, ONCE, 1 dose, On Sat01/08/22 at 1845, [place] [facility] acetaminoph en (TYLENOL ARTHRITIS PAIN) 650 mg CR tablet 01-08 00:00: 00 04-07 00:00 :00 No [id number] 650mg Take 1 tablet by mouth every 8 (eight) hours as needed for Pain. [facility] ondansetron 4 mg disintegrat ing tablet 01-08 00:00: 00 02-27 00:00 :00 No [id number] 4mg Take 1 tablet by mouth every 8 (eight) hours as needed for Nausea and Vomiting (N/V). [facility] ketorolac 10 mg tablet 01-08 00:00: 00 02-27 00:00 :00 No [id number] 10mg Take 1 tablet by mouth every 6 (six) hours as needed for Pain (scale 4-6) or Pain (scale 7-10). [facility] metaxalone (SKELAXIN) 800 mg tablet 01-08 00:00: 00 02-27 00:00 :00 No [id number] 800mg Take 1 tablet by mouth in the morning and 1 tablet at noon and 1 tablet in the evening. [facility] metroNIDAZO LE 500 mg tablet 12-18 00:00: 00 02-27 00:00 :00 No 500mg Take 1 tablet by mouth every 12 (twelve) hours. [facility] trazodone/d ietary supp. no.8 (TRAZAMINE ORAL) 12-12 15:08: 46 12-12 00:00 :00 No Take by mouth. [facility] diphenhydrA MINE 25 mg capsule 12-12 13:03: 04 Yes 25mg Take 25 mg by mouth every 6 (six) hours as needed for Allergies. [facility] carbamazepi ne (TEGRETOL ORAL) 12-12 13:03: 04 Yes Take by mouth. [facility] traZODone 50 mg tablet 12-12 00:00: 00 02-27 00:00 :00 No [id number] 50mg Take 1 tablet by mouth at bedtime. [facility] SERTraline (ZOLOFT) 50 mg tablet 12-12 00:00: 00 02-27 00:00 :00 No [id number] 50mg Take 1 tablet by mouth in the morning. [facility] sulfamethox azole-trime thoprim (BACTRIM DS) 800-160 mg per tablet 12-12 00:00: 00 12-16 04:59 :00 No [id number] 1{tbl} Take 1 tablet by mouth in the morning and 1 tablet in the evening. Do all this for 3 days. [facility] ibuprofen 600 mg tablet 11-24 00:00: 00 02-27 00:00 :00 No [id number] 600mg Take 1 tablet by mouth every 6 (six) hours as needed for Pain (scale 4-6). [facility] acetaminoph en-codeine 300-30 mg tablet 11-24 00:00: 00 12-12 00:00 :00 No [id number] 1{tbl} Take 1 tablet by mouth every 4 (four) hours as needed for Pain (scale 4-6). Indication s: acute pain [facility] bromphenira mine-pseudo ephedrine-D M (BROMFED DM) 2-30-10 mg/5 mL syrup 11-18 00:00: 00 03-24 00:00 :00 No [id number] 5mL Take 5 mL by mouth 4 (four) times daily as needed for Congestion /Allergies or Cough. [facility] naproxen 500 mg tablet 11-18 00:00: 00 02-27 00:00 :00 No [id number] 500mg Take 1 tablet by mouth every 8 (eight) hours as needed for Pain (scale 4-6). [facility] cyclobenzap rine 10 mg tablet 11-18 00:00: 00 02-27 00:00 :00 No [id number] 10mg Take 1 tablet by mouth at bedtime as needed for Muscle Spasms. [facility] ibuprofen 100 mg/5 mL oral suspension 10-25 00:00: 00 02-27 00:00 :00 No [id number] 605mg Take 30.25 mL by mouth every 6 (six) hours as needed for Pain (scale 4-6) or Temp > 38.5 C. [facility] acetaminoph en 160 mg/5 mL liquid 15 00:00: 00 12-12 00:00 :00 No [id number] 608mg Take 19 mL by mouth every 6 (six) hours as needed for Fever. [facility] DULoxetine 60 mg capsule 10-06 00:00: 00 02-27 00:00 :00 No [facility] traZODone 50 mg tablet 10-06 00:00: 00 12-12 00:00 :00 No [facility] mometasone 50 mcg/actuati on nasal spray 09-28 00:00: 00 02-27 00:00 :00 No [id number] 1{spray } Use 1 [place] in each nostril 2 (two) times daily. [facility] cetirizine (ZYRTEC) 10 mg tablet 16 00:00: 00 02-27 00:00 :00 No [id number] 10mg Take 1 tablet by mouth daily. [facility] DULoxetine 30 mg capsule - 00:00: 00 02-27 00:00 :00 No [facility] gabapentin 300 mg capsule 09-18 00:00: 00 02-27 00:00 :00 No [facility] ondansetron 4 mg tablet - 00:00: 00 02-27 00:00 :00 No [facility] amLODIPine 5 mg tablet 09-01 00:00: 00 02-27 00:00 :00 No 5mg Take 5 mg by mouth. [facility] buPROPion XL 150 mg 24 hr tablet 08-30 00:00: 00 02-27 00:00 :00 No 150mg Take 150 mg by mouth. [facility] proMETHazin e 25 mg tablet 08-15 00:00: 00 09-12 00:00 :00 No [id number] 25mg Take 1 tablet by mouth every 6 (six) hours as needed for Nausea and Vomiting (N/V). [facility] traMADoL 50 mg tablet 08-15 00:00: 00 09-12 00:00 :00 No [id number] 50mg Take 1 tablet by mouth every 6 (six) hours as needed (pain). Indication s: acute pain [facility] cyclobenzap rine 10 mg tablet 08-07 00:00: 00 08-22 04:59 :00 No [id number] 10mg Take 1 tablet by mouth 3 (three) times daily for 14 days. [facility] ibuprofen 800 mg tablet - 00:00: 00 08-22 04:59 :00 No [id number] 800mg Take 1 tablet by mouth every 6 (six) hours as needed for Pain (scale 1-3) for up to 14 days. [facility] diclofenac 75 mg EC tablet - 00:00: 00 09-12 00:00 :00 No [facility] orphenadrin e 100 mg SR tablet 3 00:00: 00 09-12 00:00 :00 No [facility] divalproex 125 mg EC tablet 3-11 00:00: 00 09-12 00:00 :00 No [id number] 125mg Take 1 tablet by mouth every 12 (twelve) hours. [facility] divalproex Sprinkles 125 mg SPRINKLE capsule 3- 00:00: 00 09-12 00:00 :00 No [facility] ibuprofen 600 mg tablet 3- 00:00: 00 08-01 04:59 :00 No [id number] 600mg Take 1 tablet by mouth every 6 (six) hours as needed for Temp > 38.5 C for up to 14 days. [facility] acetaminoph en-codeine 300-30 mg tablet 1- 00:00: 00 09-12 00:00 :00 No TAKE 1 TABLET BY MOUTH EVERY 4 HOURS NEEDED FOR PAIN FOR 2 DAYS [facility] fluticasone propionate 110 mcg/actuati on inhaler - 00:00: 00 09-28 00:00 :00 No [id number] 2{puff} Inhale 2 Puffs every 12 (twelve) hours. [facility] benzonatate (TESSALON PERLES) 100 mg capsule 1-13 00:00: 00 09-25 00:00 :00 No [id number] 100mg Take 1 capsule by mouth every 8 (eight) hours as needed for Cough. [facility] carvediloL 25 mg tablet 2020-05 2-30 00:00: 00 02-27 00:00 :00 No 25mg Take 1 tablet by mouth 2 (two) times daily with meals. [facility] losartan 50 mg tablet 2020-05 2-30 00:00: 00 02-27 00:00 :00 No 50mg Take 1 tablet by mouth 2 (two) times daily. [facility] proMETHazin e 25 mg tablet 2020-05 00:00: 00 09-12 00:00 :[address] [facility] methocarbam oL (ROBAXIN) 500 mg tablet 2020-05 00:00: 00 05-25 00:00 :00 No [id number] 500mg Take 1 tablet by mouth every 6 (six) hours as needed (MUSCLE SPASM). [facility] vitamin B-12 (VITAMIN B-12) 500 mcg tablet 2020-05 00:00: 00 09-12 00:00 :00 No [id number] 500ug Take 1 tablet by mouth daily. [facility] methylPREDN ISolone 4 mg tablets 2020-05 00:00: 00 05-25 00:00 :00 No [id number] Follow package directions [facility] fluticasone propion-chel meteroL 115-21 mcg/actuati on inhaler 02-09 00:00: 05-25 00:00 :00 No [id number] 2{puff} Inhale 2 Puffs 2 (two) times daily. Rinse mouth after each use. [facility] albuterol 2.5 mg /3 mL (0.083 %) nebulizer solution 02-09 00:00: 00 05-25 00:00 :00 No [id number] 2.5mg Inhale 3 mL every 6 (six) hours as needed for Wheezing or Shortness of Breath. [facility] methocarbam oL (ROBAXIN) 500 mg tablet 02-09 00:00: 00 05-02 00:00 :00 No [id number] 500mg Take 1 tablet by mouth every 6 (six) hours as needed (MUSCLE SPASM). [facility] bromphenira mine-pseudo ephedrine-D M (BROMFED DM) 2-30-10 mg/5 mL syrup 01-31 00:00: 00 02-09 00:00 :00 No [id number] 5mL Take 5 mL by mouth 4 (four) times daily as needed for Cough. [facility] methylPREDN ISolone (MEDROL, ANABELA,) 4 mg tablets 01-20 00:00: 00 02-09 00:00 :00 No [id number] Take by mouth SEE-INSTRU CTIONS. follow package directions [facility] albuterol 90 mcg/actuati on inhaler 01-12 00:00: 00 05-25 00:00 :00 No [id number] 2{puff} Inhale 2 Puffs every 4 (four) hours as needed for Wheezing or Shortness of Breath. [facility] benzonatate 100 mg capsule 01-12 00:00: 00 02-19 00:00 :00 No [id number] 100mg Take 1 capsule by mouth 3 (three) times daily as needed for Cough. [facility] [facility] los[facility] 50 mg tablet 12-23 00:00: 00 02-09 00:00 :00 No 50mg Take 1 tablet by mouth 2 (two) times daily. [facility] topiramate 25 mg tablet 11-22 00:00: 00 12-26 00:00 :00 No 25mg Take 1 tablet by mouth 2 (two) times daily. [facility] OXcarbazepi ne 150 mg tablet 11-21 00:00: 00 02-09 00:00 :00 No [facility] FLUoxetine 40 mg capsule 11-21 00:00: 00 12-26 00:00 :00 No [facility] traZODone 100 mg tablet 11-21 00:00: 00 12-26 00:00 :00 No [facility] dicyclomine 20 mg tablet 10-20 00:00: 00 12-26 00:00 :00 No [id number] 20mg Take 1 tablet by mouth 4 (four) times daily. [facility] proMETHazin e 25 mg tablet - 00:00: 00 12-26 00:00 :00 No [id number] 25mg Take 1 tablet by mouth every 6 (six) hours as needed for Nausea and Vomiting (N/V). [facility] acetaminoph en-codeine 300-30 mg tablet 605 00:00: 00 12-26 00:00 :00 No TAKE 2 TABLETS BY MOUTH EVERY 6 HOURS NEEDED FOR PAIN [facility] oxybutynin (DITROPAN XL) 10 mg 24 hr tablet 10-09 00:00: 00 12-26 00:00 :00 No [id number] 10mg Take 1 tablet by mouth daily. [facility] ondansetron (ZOFRAN ODT) 4 mg disintegrat ing tablet 10-09 00:00: 00 12-26 00:00 :00 No [id number] 4mg Take 1 tablet by mouth every 8 (eight) hours as needed for Nausea and Vomiting (N/V). [facility] ciprofloxac in HCl 500 mg tablet 10-09 00:00: 00 11-22 00:00 :00 No [id number] 500mg Take 1 tablet by mouth 2 (two) times daily. [facility] predniSONE 20 mg tablet 10-04 00:00: 00 11-22 00:00 :00 No [id number] 20mg Take 1 tablet by mouth daily. Days 1-2: 3 pills (60 mg). Days 3-4: 2 pills (40 mg). Days 5-6: 1 pill (20 mg). Days 7-8: 1/2 pill (10 mg). Then stop [facility] mupirocin 2 % ointment 20 00:00: 00 12-26 00:00 :00 No [id number] Apply to both nostrils at bedtime [facility] naproxen sodium (ANAPROX DS) 550 mg tablet 19 00:00: 00 12-26 00:00 :00 No [id number] 550mg Take 1 tablet by mouth 2 (two) times daily with meals. [facility] losartan 25 mg tablet 09-16 00:00: 00 12-22 00:00 :00 No 25mg Take 1 tablet by mouth 2 (two) times daily. [facility] nadoloL 20 mg tablet 09-16 00:00: 00 12-22 00:00 :00 No [id number] Please take Nadalol 40 mg QAM [facility] LOESTRIN FE (LOESTRIN FE 1/20) 1 mg-20 mcg (21)/75 mg (7) tablet 09-06 00:00: 00 02-09 00:00 :00 No [id number] 1{tbl} Take 1 tablet by mouth daily. [facility] FLUoxetine 20 mg capsule 09-06 00:00: 00 11-22 00:00 :00 No [id number] 20mg Take 1 capsule by mouth daily. [facility] traZODone 50 mg tablet 09-06 00:00: 00 11-22 00:00 :00 No [id number] 50mg Take 1 tablet by mouth at bedtime. [facility] nadoloL 20 mg tablet 08-31 00:00: 00 09-16 00:00 :00 No [id number] Please take Nadalol 40 mg QAM and 20 mg QPM [facility] methocarbam oL (ROBAXIN) 500 mg tablet 08-18 00:00: 00 09-30 00:00 :00 No [id number] 500mg Take 1 tablet by mouth every 6 (six) hours as needed (MUSCLE SPASM). [facility] traMADoL (ULTRAM) 50 mg tablet 08-18 00:00: 00 09-30 00:00 :00 No [id number] 50mg Take 1 tablet by mouth every 6 (six) hours as needed for Pain (scale 7-10). Indication s: acute pain [facility] ibuprofen 800 mg tablet 08-14 00:00: 00 11-22 00:00 :00 No TAKE 1 TABLET BY MOUTH EVERY 12 HOURS NEEDED FOR PAIN [facility] ondansetron (ZOFRAN ODT) 4 mg disintegrat ing tablet 08-01 00:00: 00 09-30 00:00 :00 No [id number] 4mg Take 1 tablet by mouth every 8 (eight) hours as needed for Nausea and Vomiting (N/V). [facility] ketorolac 10 mg tablet 08-01 00:00: 00 09-30 00:00 :00 No [id number] 10mg Take 1 tablet by mouth every 6 (six) hours as needed for Pain (scale 4-6). [facility] ciprofloxac in HCl 250 mg tablet 08-01 00:00: 00 09-30 00:00 :00 No [id number] 250mg Take 1 tablet by mouth 2 (two) times daily. [facility] lidocaine 5 % (700 mg/patch) patch 07-22 00:00: 00 09-30 00:00 :00 No [id number] 1{patch } Apply 1 Patch to area(s) every 24 (twenty-fo ur) hours as needed for Localized pain. [facility] topiramate 25 mg tablet 05-17 00:00: 00 11-22 00:00 :00 No 25mg Take 1 tablet by mouth 2 (two) times daily. [facility] metoprolol succinate XL 25 mg 24 hr tablet 2019-05 00:00: 00 06-15 00:00 :00 No [id number] 12.5mg Take 0.5 tablets by mouth 2 (two) times daily for 90 days. [facility] FLUoxetine 20 mg capsule 2019-05 00:00: 00 09-06 00:00 :00 No 20mg Take 20 mg by mouth daily. [facility] norgestimat e-ethinyl estradiol 0.25-35 mg-mcg per tablet 11-17 00:00: 04-15 00:00 :00 No [id number] 1{tbl} Take 1 tablet by mouth daily. [facility] buPROPion XL (WELLBUTRIN XL) 150 mg 24 hr tablet 02 00:00: 01-04 00:00 :00 No [id number] 150mg Take 1 tablet by mouth daily. [facility] acetaminoph en 325 mg tablet 07-22 00:00: 00 01-04 00:00 :00 No [id number] 650mg Take 2 tablets by mouth every 6 (six) hours as needed for Pain (scale 1-3) or Pain (scale 4-6). [facility] vitamin w/FA tablet 07-22 00:00: 01-04 00:00 :00 No [id number] 1{tbl} Take 1 tablet by mouth daily. [facility] docusate calcium 240 mg capsule 07-22 00:00: 01-04 00:00 :00 No [id number] 240mg Take 1 capsule by mouth once daily as needed for Constipati on. [facility] ferrous sulfate 325 mg (65 mg iron) tablet 07-22 00:00: 01-04 00:00 :00 No [id number] 325mg Take 1 tablet by mouth 2 (two) times daily. [facility] ibuprofen 600 mg tablet 07-22 00:00: 00 01-04 00:00 :00 No [id number] 600mg Take 1 tablet by mouth every 6 (six) hours as needed (Pain). Take with food or milk. [facility] ALBUTEROL 90 mcg/actuati on inhaler 1-14 00:00: 05-01 00:00 :00 No [id number] 103 INHALE 2 PUFFS BY MOUTH EVERY 6 HOURS NEEDED FOR WHEEZING FOR SHORTNESS OF BREATH [facility] buPROPion SR (WELLBUTRIN SR) 150 mg SR tablet 05-21 00:00: 00 01-04 00:00 :00 No [id number] 150mg Take 1 tablet by mouth 2 (two) times daily. [facility] busPIRone 10 mg tablet 2020-0 1-09 00:00: 00 01-04 00:00 :00 No [id number] 109 10mg Take 1 tablet by mouth 3 (three) times daily. [facility] Immunizations Ordered Immunization Name Filled Immunization Name Date Status Comments Source Influenza Virus Vaccine Quad IM, Preserv and ABX Free 6 MO-64 YRS 2022-02-27 00:00:00 Completed [facility] Influenza Virus Vaccine Quad IM, Preserv and ABX Free 6 MO-64 YRS 2022-02-27 00:00:00 Completed [facility] Influenza Virus Vaccine Quad IM, Preserv and ABX Free 6 MO-64 YRS 2022-02-27 00:00:00 Completed [facility] Influenza Virus Vaccine Quad IM, Preserv and ABX Free 6 MO-64 2022-02-27 00:00:00 Completed [facility] Influenza Virus Vaccine Quad IM, Preserv and ABX Free 6 MO-64 YRS 2022-02-27 00:00:00 Completed [facility] Influenza Virus Vaccine Quad IM, Preserv and ABX Free 6 MO-64 2022-02-27 00:00:00 Completed [facility] Influenza Virus Vaccine Quad IM, Preserv and ABX Free 6 MO-64 YRS 2022-02-27 00:00:00 Completed [facility] Influenza Virus Vaccine Quad IM, Preserv and ABX Free 6 MO-64 2022-02-27 00:00:00 Completed [facility] Influenza Virus Vaccine Quad IM, Preserv and ABX Free 6 MO-64 YRS 2022-02-27 00:00:00 Completed [facility] Influenza Virus Vaccine Quad IM, Preserv and ABX Free 6 MO-64 2022-02-27 00:00:00 Completed [facility] Influenza Virus Vaccine Quad IM, Preserv and ABX Free 6 MO-64 YRS 2022-02-27 00:00:00 Completed [facility] Influenza Virus Vaccine Quad IM, Preserv and ABX Free 6 MO-64 2022-02-27 00:00:00 Completed [facility] Influenza Virus Vaccine Quad IM, Preserv and ABX Free 6 MO-64 2022-02-27 00:00:00 Completed [facility] Influenza Virus Vaccine Quad IM, Preserv and ABX Free 6 MO-64 YRS 2022-02-27 00:00:00 Completed [facility] Influenza Virus Vaccine Quad IM, Preserv and ABX Free 6 MO-64 YRS 2022-02-27 00:00:00 Completed [facility] Influenza Virus Vaccine Quad IM, Preserv and ABX Free 6 MO-64 YRS 2022-02-27 00:00:00 Completed [facility] Influenza Virus Vaccine Quad IM, Preserv and ABX Free 6 MO-64 YRS 2022-02-27 00:00:00 Completed [facility] Influenza Virus Vaccine Quad IM, Preserv and ABX Free 6 MO-64 YRS 2022-02-27 00:00:00 Completed [facility] Influenza Virus Vaccine Quad IM, Preserv and ABX Free 6 MO-64 YRS 2022-02-27 00:00:00 Completed [facility] Influenza Virus Vaccine Quad IM, Preserv and ABX Free 6 MO-64 YRS 2022-02-27 00:00:00 Completed [facility] Influenza Virus Vaccine Quad IM, Preserv and ABX Free 6 MO-64 YRS 2022-02-27 00:00:00 Completed [facility] Influenza Virus Vaccine Quad IM, Preserv and ABX Free 6 MO-64 YRS 2022-02-27 00:00:00 Completed [facility] Influenza Virus Vaccine Quad IM, Preserv and ABX Free 6 MO-64 YRS 2022-02-27 00:00:00 Completed [facility] Influenza Virus Vaccine Quad IM, Preserv and ABX Free 6 MO-64 YRS 2022-02-27 00:00:00 Completed [facility] Influenza Virus Vaccine Quad IM, Preserv and ABX Free 6 MO-64 YRS 2022-02-27 00:00:00 Completed [facility] Influenza Virus Vaccine Quad IM, Preserv and ABX Free 6 MO-64 YRS 2022-02-27 00:00:00 Completed [facility] Influenza Virus Vaccine Quad IM, Preserv and ABX Free 6 MO-64 YRS 2022-02-27 00:00:00 Completed [facility] Influenza Virus Vaccine Quad IM, Preserv and ABX Free 6 MO-64 YRS 2022-02-27 00:00:00 Completed [facility] Influenza Virus Vaccine Quad IM, Preserv and ABX Free 6 MO-64 YRS 2022-02-27 00:00:00 Completed [facility] Influenza Virus Vaccine Quad IM, Preserv and ABX Free 6 MO-64 YRS 2022-02-27 00:00:00 Completed [facility] Influenza Virus Vaccine Quad IM, Preserv and ABX Free 6 MO-64 YRS 2022-02-27 00:00:00 Completed [facility] Influenza Virus Vaccine Quad IM, Preserv and ABX Free 6 MO-64 YRS 2022-02-27 00:00:00 Completed [facility] Influenza Virus Vaccine Quad IM, Preserv and ABX Free 6 MO-64 YRS 2022-02-27 00:00:00 Completed [facility] Influenza Virus Vaccine Quad IM, Preserv and ABX Free 6 MO-64 YRS 2022-02-27 00:00:00 Completed [facility] Influenza Virus Vaccine Quad IM, Preserv and ABX Free 6 MO-64 YRS 2022-02-27 00:00:00 Completed [facility] Influenza Virus Vaccine Quad IM, Preserv and ABX Free 6 MO-64 YRS 2022-02-27 00:00:00 Completed [facility] Influenza Virus Vaccine Quad IM, Preserv and ABX Free 6 MO-64 YRS 2022-02-27 00:00:00 Completed [facility] Influenza Virus Vaccine Quad IM, Preserv and ABX Free 6 MO-64 YRS 2022-02-27 00:00:00 Completed [facility] Influenza Virus Vaccine Quad IM, Preserv and ABX Free 6 MO-64 YRS 2022-02-27 00:00:00 Completed [facility] Influenza Virus Vaccine Quad IM, Preserv and ABX Free 6 MO-64 YRS 2022-02-27 00:00:00 Completed [facility] Influenza Virus Vaccine Quad IM, Preserv and ABX Free 6 MO-64 YRS 2022-02-27 00:00:00 Completed [facility] Influenza Virus Vaccine Quad IM, Preserv and ABX Free 6 MO-64 YRS (FLUCELVAX) 2022-02-27 00:00:00 Completed [facility] Influenza Virus Vaccine Quad IM, Preserv and ABX Free 6 MO-64 YRS (FLUCELVAX) 2022-02-27 00:00:00 Completed [facility] Influenza Virus Vaccine Quad IM, Preserv and ABX Free 6 MO-64 YRS (FLUCELVAX) 2022-02-27 00:00:00 Completed [facility] Influenza Virus Vaccine Quad .5 mL IM 6+ MO 2022-02-21 00:00:00 Completed [facility] Influenza Virus Vaccine Quad .5 mL IM 6+ MO 2022-02-21 00:00:00 Completed [facility] Influenza Virus Vaccine Quad .5 mL IM 6+ MO 2022-02-21 00:00:00 Completed [facility] Influenza Virus Vaccine Quad .5 mL IM 6+ MO 2022-02-21 00:00:00 Completed [facility] Influenza Virus Vaccine Quad .5 mL IM 6+ MO 2022-02-21 00:00:00 Completed [facility] Influenza Virus Vaccine Quad .5 mL IM 6+ MO 2022-02-21 00:00:00 Completed [facility] Influenza Virus Vaccine Quad .5 mL IM 6+ MO 2022-02-21 00:00:00 Completed [facility] Influenza Virus Vaccine Quad .5 mL IM 6+ MO 2022-02-21 00:00:00 Completed [facility] Influenza Virus Vaccine Quad .5 mL IM 6+ MO 2022-02-21 00:00:00 Completed [facility] Influenza Virus Vaccine Quad .5 mL IM 6+ MO 2022-02-21 00:00:00 Completed [facility] Influenza Virus Vaccine Quad .5 mL IM 6+ MO 2022-02-21 00:00:00 Completed [facility] Influenza Virus Vaccine Quad .5 mL IM 6+ MO 2022-02-21 00:00:00 Completed [facility] Influenza Virus Vaccine Quad .5 mL IM 6+ MO (FLUZONE/FLULAVAL/F LUARIX) 2022-02-21 00:00:00 Completed [facility] Influenza Virus Vaccine Quad .5 mL IM 6+ MO (FLUZONE/FLULAVAL/F LUARIX) 2022-02-21 00:00:00 Completed [facility] Influenza Virus Vaccine Quad .5 mL IM 6+ MO (FLUZONE/FLULAVAL/F LUARIX) 2022-02-21 00:00:00 Completed [facility] Influenza Virus Vaccine 2021-06-11 00:00:00 Completed [facility] Influenza Virus Vaccine 2021-06-11 00:00:00 Completed [facility] Influenza Virus Vaccine 2021-06-11 00:00:00 Completed [facility] Influenza Virus Vaccine 2021-06-11 00:00:00 Completed [facility] Influenza Virus Vaccine 2021-06-11 00:00:00 Completed [facility] Influenza Virus Vaccine 2021-06-11 00:00:00 Completed [facility] Influenza Virus Vaccine 2021-06-11 00:00:00 Completed [facility] Influenza Virus Vaccine 2021-06-11 00:00:00 Completed [facility] Influenza Virus Vaccine 2021-06-11 00:00:00 Completed [facility] Influenza Virus Vaccine 2021-06-11 00:00:00 Completed [facility] Influenza Virus Vaccine 2021-06-11 00:00:00 Completed [facility] Influenza Virus Vaccine 2021-06-11 00:00:00 Completed [facility] Influenza Virus Vaccine 2021-06-11 00:00:00 Completed [facility] Influenza Virus Vaccine 2021-06-11 00:00:00 Completed [facility] Influenza Virus Vaccine 2021-06-11 00:00:00 Completed [facility] Influenza Virus Vaccine 2021-06-11 00:00:00 Completed [facility] Influenza Virus Vaccine 2021-06-11 00:00:00 Completed [facility] Influenza Virus Vaccine 2021-06-11 00:00:00 Completed [facility] Influenza Virus Vaccine 2021-06-11 00:00:00 Completed [facility] Influenza Virus Vaccine 2021-06-11 00:00:00 Completed [facility] Influenza Virus Vaccine 2021-06-11 00:00:00 Completed [facility] Influenza Virus Vaccine 2021-06-11 00:00:00 Completed [facility] Influenza Virus Vaccine 2021-06-11 00:00:00 Completed [facility] Influenza Virus Vaccine 2021-06-11 00:00:00 Completed [facility] Influenza Virus Vaccine 2021-06-11 00:00:00 Completed [facility] Influenza Virus Vaccine 2021-06-11 00:00:00 Completed [facility] Influenza Virus Vaccine 2021-06-11 00:00:00 Completed [facility] Influenza Virus Vaccine 2021-06-11 00:00:00 Completed [facility] Influenza Virus Vaccine 2021-06-11 00:00:00 Completed [facility] Influenza Virus Vaccine 2021-06-11 00:00:00 Completed [facility] Influenza Virus Vaccine 2021-06-11 00:00:00 Completed [facility] Influenza Virus Vaccine 2021-06-11 00:00:00 Completed [facility] Influenza Virus Vaccine 2021-06-11 00:00:00 Completed [facility] Influenza Virus Vaccine 2021-06-11 00:00:00 Completed [facility] Influenza Virus Vaccine 2021-06-11 00:00:00 Completed [facility] Influenza Virus Vaccine 2021-06-11 00:00:00 Completed [facility] Influenza Virus Vaccine 2021-06-11 00:00:00 Completed [facility] Influenza Virus Vaccine 2021-06-11 00:00:00 Completed [facility] Influenza Virus Vaccine 2021-06-11 00:00:00 Completed [facility] Influenza Virus Vaccine 2021-06-11 00:00:00 Completed [facility] Influenza Virus Vaccine 2021-06-11 00:00:00 Completed [facility] Influenza Virus Vaccine Quad .5 mL IM 6+ MO 2021-06-11 00:00:00 Completed [facility] Influenza Virus Vaccine 2021-06-11 00:00:00 Completed [facility] Influenza Virus Vaccine Quad .5 mL IM 6+ MO 2021-06-11 00:00:00 Completed [facility] Influenza Virus Vaccine 2021-06-11 00:00:00 Completed [facility] Influenza Virus Vaccine Quad .5 mL IM 6+ MO 2021-06-11 00:00:00 Completed [facility] Influenza Virus Vaccine 2021-06-11 00:00:00 Completed [facility] Influenza Virus Vaccine Quad .5 mL IM 6+ MO 2021-06-11 00:00:00 Completed [facility] Influenza Virus Vaccine 2021-06-11 00:00:00 Completed [facility] Influenza Virus Vaccine Quad .5 mL IM 6+ MO 2021-06-11 00:00:00 Completed [facility] Influenza Virus Vaccine 2021-06-11 00:00:00 Completed [facility] Influenza Virus Vaccine Quad .5 mL IM 6+ MO 2021-06-11 00:00:00 Completed [facility] Influenza Virus Vaccine 2021-06-11 00:00:00 Completed [facility] Influenza Virus Vaccine Quad .5 mL IM 6+ MO 2021-06-11 00:00:00 Completed [facility] Influenza Virus Vaccine 2021-06-11 00:00:00 Completed [facility] Influenza Virus Vaccine Quad .5 mL IM 6+ MO 2021-06-11 00:00:00 Completed [facility] Influenza Virus Vaccine 2021-06-11 00:00:00 Completed [facility] Influenza Virus Vaccine Quad .5 mL IM 6+ MO 2021-06-11 00:00:00 Completed [facility] Influenza Virus Vaccine 2021-06-11 00:00:00 Completed [facility] Influenza Virus Vaccine Quad .5 mL IM 6+ MO 2021-06-11 00:00:00 Completed [facility] Influenza Virus Vaccine 2021-06-11 00:00:00 Completed [facility] Influenza Virus Vaccine Quad .5 mL IM 6+ MO 2021-06-11 00:00:00 Completed [facility] Influenza Virus Vaccine 2021-06-11 00:00:00 Completed [facility] Influenza Virus Vaccine Quad .5 mL IM 6+ MO 2021-06-11 00:00:00 Completed [facility] Influenza Virus Vaccine 2021-06-11 00:00:00 Completed [facility] Influenza Virus Vaccine Quad .5 mL IM 6+ MO (FLUZONE/FLULAVAL/F LUARIX) 2021-06-11 00:00:00 Completed [facility] Influenza Virus Vaccine 2021-06-11 00:00:00 Completed [facility] Influenza Virus Vaccine Quad .5 mL IM 6+ MO (FLUZONE/FLULAVAL/F LUARIX) 2021-06-11 00:00:00 Completed [facility] Influenza Virus Vaccine 2021-06-11 00:00:00 Completed [facility] Influenza Virus Vaccine Quad .5 mL IM 6+ MO (FLUZONE/FLULAVAL/F LUARIX) 2021-06-11 00:00:00 Completed [facility] Influenza Virus Vaccine 2020-05-19 00:00:00 Completed [facility] Influenza Virus Vaccine 2020-05-19 00:00:00 Completed [facility] Influenza Virus Vaccine 2020-05-19 00:00:00 Completed [facility] Influenza Virus Vaccine 2020-05-19 00:00:00 Completed [facility] Influenza Virus Vaccine 2020-05-19 00:00:00 Completed [facility] Influenza Virus Vaccine 2020-05-19 00:00:00 Completed [facility] Influenza Virus Vaccine 2020-05-19 00:00:00 Completed [facility] Influenza Virus Vaccine 2020-05-19 00:00:00 Completed [facility] Influenza Virus Vaccine 2020-05-19 00:00:00 Completed [facility] Influenza Virus Vaccine 2020-05-19 00:00:00 Completed [facility] Influenza Virus Vaccine 2020-05-19 00:00:00 Completed [facility] Influenza Virus Vaccine 2020-05-19 00:00:00 Completed [facility] Influenza Virus Vaccine 2020-05-19 00:00:00 Completed [facility] Influenza Virus Vaccine 2020-05-19 00:00:00 Completed [facility] Influenza Virus Vaccine 2020-05-19 00:00:00 Completed [facility] Influenza Virus Vaccine 2020-05-19 00:00:00 Completed [facility] Influenza Virus Vaccine 2020-05-19 00:00:00 Completed [facility] Influenza Virus Vaccine 2020-05-19 00:00:00 Completed [facility] Influenza Virus Vaccine 2020-05-19 00:00:00 Completed [facility] Influenza Virus Vaccine 2020-05-19 00:00:00 Completed [facility] Influenza Virus Vaccine 2020-05-19 00:00:00 Completed [facility] Influenza Virus Vaccine 2020-05-19 00:00:00 Completed [facility] Influenza Virus Vaccine 2020-05-19 00:00:00 Completed [facility] Influenza Virus Vaccine 2020-05-19 00:00:00 Completed [facility] Influenza Virus Vaccine 2020-05-19 00:00:00 Completed [facility] Influenza Virus Vaccine 2020-05-19 00:00:00 Completed [facility] Influenza Virus Vaccine 2020-05-19 00:00:00 Completed [facility] Influenza Virus Vaccine 2020-05-19 00:00:00 Completed [facility] Influenza Virus Vaccine 2020-05-19 00:00:00 Completed [facility] Influenza Virus Vaccine 2020-05-19 00:00:00 Completed [facility] Influenza Virus Vaccine 2020-05-19 00:00:00 Completed [facility] Influenza Virus Vaccine 2020-05-19 00:00:00 Completed [facility] Influenza Virus Vaccine 2020-05-19 00:00:00 Completed [facility] Influenza Virus Vaccine 2020-05-19 00:00:00 Completed [facility] Influenza Virus Vaccine 2020-05-19 00:00:00 Completed [facility] Influenza Virus Vaccine 2020-05-19 00:00:00 Completed [facility] Influenza Virus Vaccine 2020-05-19 00:00:00 Completed [facility] Influenza Virus Vaccine 2020-05-19 00:00:00 Completed [facility] Influenza Virus Vaccine 2020-05-19 00:00:00 Completed [facility] Influenza Virus Vaccine 2020-05-19 00:00:00 Completed [facility] Influenza Virus Vaccine 2020-05-19 00:00:00 Completed [facility] Influenza Virus Vaccine 2020-05-19 00:00:00 Completed [facility] Influenza Virus Vaccine 2020-05-19 00:00:00 Completed [facility] Influenza Virus Vaccine 2020-05-19 00:00:00 Completed [facility] Influenza Virus Vaccine 2020-05-19 00:00:00 Completed [facility] Influenza Virus Vaccine 2020-05-19 00:00:00 Completed [facility] Influenza Virus Vaccine 2020-05-19 00:00:00 Completed [facility] Influenza Virus Vaccine 2020-05-19 00:00:00 Completed [facility] Influenza Virus Vaccine 2020-05-19 00:00:00 Completed [facility] Influenza Virus Vaccine 2020-05-19 00:00:00 Completed [facility] Influenza Virus Vaccine 2020-05-19 00:00:00 Completed [facility] Influenza Virus Vaccine 2020-05-19 00:00:00 Completed [facility] Influenza Virus Vaccine 2020-05-19 00:00:00 Completed [facility] Influenza Virus Vaccine 2020-05-19 00:00:00 Completed [facility] Influenza Virus Vaccine 2020-05-19 00:00:00 Completed [facility] Influenza Virus Vaccine Recomb Quad IM, Preserv and ABX Free 18-64 YRS 2020-05-16 00:00:00 Completed [facility] Influenza Virus Vaccine Recomb Quad IM, Preserv and ABX Free 18-64 YRS 2020-05-16 00:00:00 Completed [facility] Influenza Virus Vaccine Recomb Quad IM, Preserv and ABX Free 18-64 YRS 2020-05-16 00:00:00 Completed [facility] Influenza Virus Vaccine Recomb Quad IM, Preserv and ABX Free 18-64 YRS 2020-05-16 00:00:00 Completed [facility] Influenza Virus Vaccine Recomb Quad IM, Preserv and ABX Free 18-64 YRS 2020-05-16 00:00:00 Completed [facility] Influenza Virus Vaccine Recomb Quad IM, Preserv and ABX Free 18-64 YRS 2020-05-16 00:00:00 Completed [facility] Influenza Virus Vaccine Recomb Quad IM, Preserv and ABX Free 18-64 YRS 2020-05-16 00:00:00 Completed [facility] Influenza Virus Vaccine Recomb Quad IM, Preserv and ABX Free 18-64 YRS 2020-05-16 00:00:00 Completed [facility] Influenza Virus Vaccine Recomb Quad IM, Preserv and ABX Free 18-64 YRS 2020-05-16 00:00:00 Completed [facility] Influenza Virus Vaccine Recomb Quad IM, Preserv and ABX Free 18-64 YRS 2020-05-16 00:00:00 Completed [facility] Influenza Virus Vaccine Recomb Quad IM, Preserv and ABX Free 18-64 YRS 2020-05-16 00:00:00 Completed [facility] Influenza Virus Vaccine Recomb Quad IM, Preserv and ABX Free 18-64 YRS 2020-05-16 00:00:00 Completed [facility] Influenza Virus Vaccine Recomb Quad IM, Preserv and ABX Free 18-64 YRS 2020-05-16 00:00:00 Completed [facility] Influenza Virus Vaccine Recomb Quad IM, Preserv and ABX Free 18-64 YRS 2020-05-16 00:00:00 Completed [facility] Influenza Virus Vaccine Recomb Quad IM, Preserv and ABX Free 18-64 YRS 2020-05-16 00:00:00 Completed [facility] Influenza Virus Vaccine Recomb Quad IM, Preserv and ABX Free 18-64 YRS 2020-05-16 00:00:00 Completed [facility] Influenza Virus Vaccine Recomb Quad IM, Preserv and ABX Free 18-64 YRS 2020-05-16 00:00:00 Completed [facility] Influenza Virus Vaccine Recomb Quad IM, Preserv and ABX Free 18-64 YRS 2020-05-16 00:00:00 Completed [facility] Influenza Virus Vaccine Recomb Quad IM, Preserv and ABX Free 18-64 YRS 2020-05-16 00:00:00 Completed [facility] Influenza Virus Vaccine Recomb Quad IM, Preserv and ABX Free 18-64 YRS 2020-05-16 00:00:00 Completed [facility] Influenza Virus Vaccine Recomb Quad IM, Preserv and ABX Free 18-64 YRS 2020-05-16 00:00:00 Completed [facility] Influenza Virus Vaccine Recomb Quad IM, Preserv and ABX Free 18-64 YRS 2020-05-16 00:00:00 Completed [facility] Influenza Virus Vaccine Recomb Quad IM, Preserv and ABX Free 18-64 YRS 2020-05-16 00:00:00 Completed [facility] Influenza Virus Vaccine Recomb Quad IM, Preserv and ABX Free 18-64 YRS 2020-05-16 00:00:00 Completed [facility] Influenza Virus Vaccine Recomb Quad IM, Preserv and ABX Free 18-64 YRS 2020-05-16 00:00:00 Completed [facility] Influenza Virus Vaccine Recomb Quad IM, Preserv and ABX Free 18-64 YRS 2020-05-16 00:00:00 Completed [facility] Influenza Virus Vaccine Recomb Quad IM, Preserv and ABX Free 18-64 YRS 2020-05-16 00:00:00 Completed [facility] Influenza Virus Vaccine Recomb Quad IM, Preserv and ABX Free 18-64 YRS 2020-05-16 00:00:00 Completed [facility] Influenza Virus Vaccine Recomb Quad IM, Preserv and ABX Free 18-64 YRS 2020-05-16 00:00:00 Completed [facility] Influenza Virus Vaccine Recomb Quad IM, Preserv and ABX Free 18-64 YRS 2020-05-16 00:00:00 Completed [facility] Influenza Virus Vaccine Recomb Quad IM, Preserv and ABX Free 18-64 YRS 2020-05-16 00:00:00 Completed [facility] Influenza Virus Vaccine Recomb Quad IM, Preserv and ABX Free 18-64 YRS 2020-05-16 00:00:00 Completed [facility] Influenza Virus Vaccine Recomb Quad IM, Preserv and ABX Free 18-64 YRS 2020-05-16 00:00:00 Completed [facility] Influenza Virus Vaccine Recomb Quad IM, Preserv and ABX Free 18-64 YRS 2020-05-16 00:00:00 Completed [facility] Influenza Virus Vaccine Recomb Quad IM, Preserv and ABX Free 18-64 YRS 2020-05-16 00:00:00 Completed [facility] Influenza Virus Vaccine Recomb Quad IM, Preserv and ABX Free 18-64 YRS 2020-05-16 00:00:00 Completed [facility] Influenza Virus Vaccine Recomb Quad IM, Preserv and ABX Free 18-64 YRS 2020-05-16 00:00:00 Completed [facility] Influenza Virus Vaccine Recomb Quad IM, Preserv and ABX Free 18-64 YRS 2020-05-16 00:00:00 Completed [facility] Influenza Virus Vaccine Recomb Quad IM, Preserv and ABX Free 18-64 YRS 2020-05-16 00:00:00 Completed [facility] Influenza Virus Vaccine Recomb Quad IM, Preserv and ABX Free 18-64 YRS 2020-05-16 00:00:00 Completed [facility] Influenza Virus Vaccine Recomb Quad IM, Preserv and ABX Free 18-64 YRS 2020-05-16 00:00:00 Completed [facility] Influenza Virus Vaccine Recomb Quad IM, Preserv and ABX Free 18-64 YRS 2020-05-16 00:00:00 Completed [facility] Influenza Virus Vaccine Recomb Quad IM, Preserv and ABX Free 18-64 YRS 2020-05-16 00:00:00 Completed [facility] Influenza Virus Vaccine Recomb Quad IM, Preserv and ABX Free 18-64 YRS 2020-05-16 00:00:00 Completed [facility] Influenza Virus Vaccine Recomb Quad IM, Preserv and ABX Free 18-64 YRS 2020-05-16 00:00:00 Completed [facility] Influenza Virus Vaccine Recomb Quad IM, Preserv and ABX Free 18-64 YRS 2020-05-16 00:00:00 Completed [facility] Influenza Virus Vaccine Recomb Quad IM, Preserv and ABX Free 18-64 YRS 2020-05-16 00:00:00 Completed [facility] Influenza Virus Vaccine Recomb Quad IM, Preserv and ABX Free 18-64 YRS 2020-05-16 00:00:00 Completed [facility] Influenza Virus Vaccine Recomb Quad IM, Preserv and ABX Free 18-64 YRS 2020-05-16 00:00:00 Completed [facility] Influenza Virus Vaccine Recomb Quad IM, Preserv and ABX Free 18-64 YRS 2020-05-16 00:00:00 Completed [facility] Influenza Virus Vaccine Recomb Quad IM, Preserv and ABX Free 18-64 YRS 2020-05-16 00:00:00 Completed [facility] Influenza Virus Vaccine Recomb Quad IM, Preserv and ABX Free 18-64 YRS 2020-05-16 00:00:00 Completed [facility] Influenza Virus Vaccine Recomb Quad IM, Preserv and ABX Free 18-64 YRS 2020-05-16 00:00:00 Completed [facility] Influenza Virus Vaccine Recomb Quad IM, Preserv and ABX Free 18-64 YRS 2020-05-16 00:00:00 Completed [facility] Influenza Virus Vaccine Recomb Quad IM, Preserv and ABX Free 18-64 YRS 2020-05-16 00:00:00 Completed [facility] TDAP (ADACEL) VACCINE 2019-05-21 00:00:00 Completed [facility] TDAP (ADACEL) VACCINE 2019-05-21 00:00:00 Completed [facility] TDAP (ADACEL) VACCINE 2019-05-21 00:00:00 Completed [facility] TDAP (ADACEL) VACCINE 2019-05-21 00:00:00 Completed [facility] TDAP (ADACEL) VACCINE 2019-05-21 00:00:00 Completed [facility] TDAP (ADACEL) VACCINE 2019-05-21 00:00:00 Completed [facility] TDAP (ADACEL) VACCINE 2019-05-21 00:00:00 Completed [facility] TDAP (ADACEL) VACCINE 2019-05-21 00:00:00 Completed [facility] TDAP (ADACEL) VACCINE 2019-05-21 00:00:00 Completed [facility] TDAP (ADACEL) VACCINE 2019-05-21 00:00:00 Completed [facility] TDAP (ADACEL) VACCINE 2019-05-21 00:00:00 Completed [facility] TDAP (ADACEL) VACCINE 2019-05-21 00:00:00 Completed [facility] TDAP (ADACEL) VACCINE 2019-05-21 00:00:00 Completed [facility] TDAP (ADACEL) VACCINE 2019-05-21 00:00:00 Completed [facility] TDAP (ADACEL) VACCINE 2019-05-21 00:00:00 Completed [facility] TDAP (ADACEL) VACCINE 2019-05-21 00:00:00 Completed [facility] TDAP (ADACEL) VACCINE 2019-05-21 00:00:00 Completed [facility] TDAP (ADACEL) VACCINE 2019-05-21 00:00:00 Completed [facility] TDAP (ADACEL) VACCINE 2019-05-21 00:00:00 Completed [facility] TDAP (ADACEL) VACCINE 2019-05-21 00:00:00 Completed [facility] TDAP (ADACEL) VACCINE 2019-05-21 00:00:00 Completed [facility] TDAP (ADACEL) VACCINE 2019-05-21 00:00:00 Completed [facility] TDAP (ADACEL) VACCINE 2019-05-21 00:00:00 Completed [facility] TDAP (ADACEL) VACCINE 2019-05-21 00:00:00 Completed [facility] TDAP (ADACEL) VACCINE 2019-05-21 00:00:00 Completed [facility] TDAP (ADACEL) VACCINE 2019-05-21 00:00:00 Completed [facility] TDAP (ADACEL) VACCINE 2019-05-21 00:00:00 Completed [facility] TDAP (ADACEL) VACCINE 2019-05-21 00:00:00 Completed [facility] TDAP (ADACEL) VACCINE 2019-05-21 00:00:00 Completed [facility] TDAP (ADACEL) VACCINE 2019-05-21 00:00:00 Completed [facility] TDAP (ADACEL) VACCINE 2019-05-21 00:00:00 Completed [facility] TDAP (ADACEL) VACCINE 2019-05-21 00:00:00 Completed [facility] TDAP (ADACEL) VACCINE 2019-05-21 00:00:00 Completed [facility] TDAP (ADACEL) VACCINE 2019-05-21 00:00:00 Completed [facility] TDAP (ADACEL) VACCINE 2019-05-21 00:00:00 Completed [facility] TDAP (ADACEL) VACCINE 2019-05-21 00:00:00 Completed [facility] TDAP (ADACEL) VACCINE 2019-05-21 00:00:00 Completed [facility] TDAP (ADACEL) VACCINE 2019-05-21 00:00:00 Completed [facility] TDAP (ADACEL) VACCINE 2019-05-21 00:00:00 Completed [facility] TDAP (ADACEL) VACCINE 2019-05-21 00:00:00 Completed [facility] TDAP (ADACEL) VACCINE 2019-05-21 00:00:00 Completed [facility] TDAP (ADACEL) VACCINE 2019-05-21 00:00:00 Completed [facility] TDAP (ADACEL) VACCINE 2019-05-21 00:00:00 Completed [facility] TDAP (ADACEL) VACCINE 2019-05-21 00:00:00 Completed [facility] TDAP (ADACEL) VACCINE 2019-05-21 00:00:00 Completed [facility] TDAP (ADACEL) VACCINE 2019-05-21 00:00:00 Completed [facility] TDAP (ADACEL) VACCINE 2019-05-21 00:00:00 Completed [facility] TDAP (ADACEL) VACCINE 2019-05-21 00:00:00 Completed [facility] TDAP (ADACEL) VACCINE 2019-05-21 00:00:00 Completed [facility] TDAP (ADACEL) VACCINE 2019-05-21 00:00:00 Completed [facility] TDAP (ADACEL) VACCINE 2019-05-21 00:00:00 Completed [facility] TDAP (ADACEL) VACCINE 2019-05-21 00:00:00 Completed [facility] TDAP (ADACEL) VACCINE 2019-05-21 00:00:00 Completed [facility] TDAP (ADACEL) VACCINE 2019-05-21 00:00:00 Completed [facility] TDAP (ADACEL) VACCINE 2019-05-21 00:00:00 Completed [facility] Influenza Virus Vaccine Quad .5 mL IM 6+ MO 2019-02-06 00:00:00 Completed [facility] Influenza Virus Vaccine Quad .5 mL IM 6+ MO 2019-02-06 00:00:00 Completed [facility] Influenza Virus Vaccine Quad .5 mL IM 6+ MO 2019-02-06 00:00:00 Completed [facility] Influenza Virus Vaccine Quad .5 mL IM 6+ MO 2019-02-06 00:00:00 Completed [facility] Influenza Virus Vaccine Quad .5 mL IM 6+ MO 2019-02-06 00:00:00 Completed [facility] Influenza Virus Vaccine Quad .5 mL IM 6+ MO 2019-02-06 00:00:00 Completed [facility] Influenza Virus Vaccine Quad .5 mL IM 6+ MO 2019-02-06 00:00:00 Completed [facility] Influenza Virus Vaccine Quad .5 mL IM 6+ MO 2019-02-06 00:00:00 Completed [facility] Influenza Virus Vaccine Quad .5 mL IM 6+ MO 2019-02-06 00:00:00 Completed [facility] Influenza Virus Vaccine Quad .5 mL IM 6+ MO 2019-02-06 00:00:00 Completed [facility] Influenza Virus Vaccine Quad .5 mL IM 6+ MO 2019-02-06 00:00:00 Completed [facility] Influenza Virus Vaccine Quad .5 mL IM 6+ MO 2019-02-06 00:00:00 Completed [facility] Influenza Virus Vaccine Quad .5 mL IM 6+ MO 2019-02-06 00:00:00 Completed [facility] Influenza Virus Vaccine Quad .5 mL IM 6+ MO 2019-02-06 00:00:00 Completed [facility] Influenza Virus Vaccine Quad .5 mL IM 6+ MO 2019-02-06 00:00:00 Completed [facility] Influenza Virus Vaccine Quad .5 mL IM 6+ MO 2019-02-06 00:00:00 Completed [facility] Influenza Virus Vaccine Quad .5 mL IM 6+ MO 2019-02-06 00:00:00 Completed [facility] Influenza Virus Vaccine Quad .5 mL IM 6+ MO 2019-02-06 00:00:00 Completed [facility] Influenza Virus Vaccine Quad .5 mL IM 6+ MO 2019-02-06 00:00:00 Completed [facility] Influenza Virus Vaccine Quad .5 mL IM 6+ MO 2019-02-06 00:00:00 Completed [facility] Influenza Virus Vaccine Quad .5 mL IM 6+ MO 2019-02-06 00:00:00 Completed [facility] Influenza Virus Vaccine Quad .5 mL IM 6+ MO 2019-02-06 00:00:00 Completed [facility] Influenza Virus Vaccine Quad .5 mL IM 6+ MO 2019-02-06 00:00:00 Completed [facility] Influenza Virus Vaccine Quad .5 mL IM 6+ MO 2019-02-06 00:00:00 Completed [facility] Influenza Virus Vaccine Quad .5 mL IM 6+ MO 2019-02-06 00:00:00 Completed [facility] Influenza Virus Vaccine Quad .5 mL IM 6+ MO 2019-02-06 00:00:00 Completed [facility] Influenza Virus Vaccine Quad .5 mL IM 6+ MO 2019-02-06 00:00:00 Completed [facility] Influenza Virus Vaccine Quad .5 mL IM 6+ MO 2019-02-06 00:00:00 Completed [facility] Influenza Virus Vaccine Quad .5 mL IM 6+ MO 2019-02-06 00:00:00 Completed [facility] Influenza Virus Vaccine Quad .5 mL IM 6+ MO 2019-02-06 00:00:00 Completed [facility] Influenza Virus Vaccine Quad .5 mL IM 6+ MO 2019-02-06 00:00:00 Completed [facility] Influenza Virus Vaccine Quad .5 mL IM 6+ MO 2019-02-06 00:00:00 Completed [facility] Influenza Virus Vaccine Quad .5 mL IM 6+ MO 2019-02-06 00:00:00 Completed [facility] Influenza Virus Vaccine Quad .5 mL IM 6+ MO 2019-02-06 00:00:00 Completed [facility] Influenza Virus Vaccine Quad .5 mL IM 6+ MO 2019-02-06 00:00:00 Completed [facility] Influenza Virus Vaccine Quad .5 mL IM 6+ MO 2019-02-06 00:00:00 Completed [facility] Influenza Virus Vaccine Quad .5 mL IM 6+ MO 2019-02-06 00:00:00 Completed [facility] Influenza Virus Vaccine Quad .5 mL IM 6+ MO 2019-02-06 00:00:00 Completed [facility] Influenza Virus Vaccine Quad .5 mL IM 6+ MO 2019-02-06 00:00:00 Completed [facility] Influenza Virus Vaccine Quad .5 mL IM 6+ MO 2019-02-06 00:00:00 Completed [facility] Influenza Virus Vaccine Quad .5 mL IM 6+ MO 2019-02-06 00:00:00 Completed [facility] Influenza Virus Vaccine Quad .5 mL IM 6+ MO 2019-02-06 00:00:00 Completed [facility] Influenza Virus Vaccine Quad .5 mL IM 6+ MO 2019-02-06 00:00:00 Completed [facility] Influenza Virus Vaccine Quad .5 mL IM 6+ MO 2019-02-06 00:00:00 Completed [facility] Influenza Virus Vaccine Quad .5 mL IM 6+ MO 2019-02-06 00:00:00 Completed [facility] Influenza Virus Vaccine Quad .5 mL IM 6+ MO 2019-02-06 00:00:00 Completed [facility] Influenza Virus Vaccine Quad .5 mL IM 6+ MO 2019-02-06 00:00:00 Completed [facility] Influenza Virus Vaccine Quad .5 mL IM 6+ MO 2019-02-06 00:00:00 Completed [facility] Influenza Virus Vaccine Quad .5 mL IM 6+ MO 2019-02-06 00:00:00 Completed [facility] Influenza Virus Vaccine Quad .5 mL IM 6+ MO 2019-02-06 00:00:00 Completed [facility] Influenza Virus Vaccine Quad .5 mL IM 6+ MO 2019-02-06 00:00:00 Completed [facility] Influenza Virus Vaccine Quad .5 mL IM 6+ MO 2019-02-06 00:00:00 Completed [facility] Influenza Virus Vaccine Quad .5 mL IM 6+ MO (FLUZONE/FLULAVAL/F LUARIX) 2019-02-06 00:00:00 Completed [facility] Influenza Virus Vaccine Quad .5 mL IM 6+ MO (FLUZONE/FLULAVAL/F LUARIX) 2019-02-06 00:00:00 Completed [facility] Influenza Virus Vaccine Quad .5 mL IM 6+ MO (FLUZONE/FLULAVAL/F LUARIX) 2019-02-06 00:00:00 Completed [facility] Influenza Virus Vaccine Quad .5 mL IM 6+ MO (FLUZONE/FLULAVAL/F LUARIX) Unknown Completed [facility] TDAP (ADACEL) VACCINE Unknown Completed [facility] Influenza Virus Vaccine Recomb Quad IM, Preserv and ABX Free 18-64 YRS Unknown Completed [facility] Influenza Virus Vaccine Unknown Completed [facility] Influenza Virus Vaccine Quad IM, Preserv and ABX Free 6 MO-64 YRS (FLUCELVAX) Unknown Completed [facility] Influenza Virus Vaccine Quad .5 mL IM 6+ MO (FLUZONE/FLULAVAL/F LUARIX) Unknown Completed [facility] TDAP (ADACEL) VACCINE Unknown Completed [facility] Influenza Virus Vaccine Recomb Quad IM, Preserv and ABX Free 18-64 YRS Unknown Completed [facility] Influenza Virus Vaccine Unknown Completed [facility] Influenza Virus Vaccine Quad IM, Preserv and ABX Free 6 MO-64 YRS (FLUCELVAX) Unknown Completed [facility] Influenza Virus Vaccine Quad .5 mL IM 6+ MO (FLUZONE/FLULAVAL/F LUARIX) Unknown Completed [facility] TDAP (ADACEL) VACCINE Unknown Completed [facility] Influenza Virus Vaccine Recomb Quad IM, Preserv and ABX Free 18-64 YRS Unknown Completed [facility] Influenza Virus Vaccine Unknown Completed [facility] Influenza Virus Vaccine Quad .5 mL IM 6+ MO (FLUZONE/FLULAVAL/F LUARIX) Unknown Completed [facility] TDAP (ADACEL) VACCINE Unknown Completed [facility] Influenza Virus Vaccine Recomb Quad IM, Preserv and ABX Free 18-64 YRS Unknown Completed [facility] Influenza Virus Vaccine Unknown Completed [facility] Influenza Virus Vaccine Quad .5 mL IM 6+ MO (FLUZONE/FLULAVAL/F LUARIX) Unknown Completed [facility] TDAP (ADACEL) VACCINE Unknown Completed [facility] Influenza Virus Vaccine Recomb Quad IM, Preserv and ABX Free 18-64 YRS Unknown Completed [facility] Influenza Virus Vaccine Unknown Completed [facility] Influenza Virus Vaccine Quad .5 mL IM 6+ MO (FLUZONE/FLULAVAL/F LUARIX) Unknown Completed [facility] TDAP (ADACEL) VACCINE Unknown Completed [facility] Influenza Virus Vaccine Recomb Quad IM, Preserv and ABX Free 18-64 YRS Unknown Completed [facility] Influenza Virus Vaccine Unknown Completed [facility] Influenza Virus Vaccine Quad .5 mL IM 6+ MO (FLUZONE/FLULAVAL/F LUARIX) Unknown Completed [facility] TDAP (ADACEL) VACCINE Unknown Completed [facility] Influenza Virus Vaccine Recomb Quad IM, Preserv and ABX Free 18-64 YRS Unknown Completed [facility] Influenza Virus Vaccine Unknown Completed [facility] Influenza Virus Vaccine Quad .5 mL IM 6+ MO (FLUZONE/FLULAVAL/F LUARIX) Unknown Completed [facility] TDAP (ADACEL) VACCINE Unknown Completed [facility] Influenza Virus Vaccine Recomb Quad IM, Preserv and ABX Free 18-64 YRS Unknown Completed [facility] Influenza Virus Vaccine Unknown Completed [facility] Influenza Virus Vaccine Quad .5 mL IM 6+ MO (FLUZONE/FLULAVAL/F LUARIX) Unknown Completed [facility] TDAP (ADACEL) VACCINE Unknown Completed [facility] Influenza Virus Vaccine Recomb Quad IM, Preserv and ABX Free 18-64 YRS Unknown Completed [facility] Influenza Virus Vaccine Unknown Completed [facility] Influenza Virus Vaccine Quad .5 mL IM 6+ MO (FLUZONE/FLULAVAL/F LUARIX) Unknown Completed [facility] TDAP (ADACEL) VACCINE Unknown Completed [facility] Influenza Virus Vaccine Recomb Quad IM, Preserv and ABX Free 18-64 YRS Unknown Completed [facility] Influenza Virus Vaccine Unknown Completed [facility] Influenza Virus Vaccine Quad .5 mL IM 6+ MO (FLUZONE/FLULAVAL/F LUARIX) Unknown Completed [facility] TDAP (ADACEL) VACCINE Unknown Completed [facility] Influenza Virus Vaccine Recomb Quad IM, Preserv and ABX Free 18-64 YRS Unknown Completed [facility] Influenza Virus Vaccine Unknown Completed [facility] Influenza Virus Vaccine Quad .5 mL IM 6+ MO (FLUZONE/FLULAVAL/F LUARIX) Unknown Completed [facility] TDAP (ADACEL) VACCINE Unknown Completed [facility] Influenza Virus Vaccine Recomb Quad IM, Preserv and ABX Free 18-64 YRS Unknown Completed [facility] Influenza Virus Vaccine Unknown Completed [facility] Influenza Virus Vaccine Quad .5 mL IM 6+ MO (FLUZONE/FLULAVAL/F LUARIX) Unknown Completed [facility] TDAP (ADACEL) VACCINE Unknown Completed [facility] Influenza Virus Vaccine Recomb Quad IM, Preserv and ABX Free 18-64 YRS Unknown Completed [facility] Influenza Virus Vaccine Unknown Completed [facility] Influenza Virus Vaccine Quad .5 mL IM 6+ MO (FLUZONE/FLULAVAL/F LUARIX) Unknown Completed [facility] TDAP (ADACEL) VACCINE Unknown Completed [facility] Influenza Virus Vaccine Recomb Quad IM, Preserv and ABX Free 18-64 YRS Unknown Com[facility] [facility]ine Unknown Completed [facility] Influenza Virus Vaccine Quad .5 mL IM 6+ MO (FLUZONE/FLULAVAL/F LUARIX) Unknown Completed [facility] TDAP (ADACEL) VACCINE Unknown Completed [facility] Influenza Virus Vaccine Recomb Quad IM, Preserv and ABX Free 18-64 YRS Unknown Completed [facility] Influenza Virus Vaccine Unknown Completed [facility] Influenza Virus Vaccine Quad .5 mL IM 6+ MO (FLUZONE/FLULAVAL/F LUARIX) Unknown Completed [facility] TDAP (ADACEL) VACCINE Unknown Completed [facility] Influenza Virus Vaccine Recomb Quad IM, Preserv and ABX Free 18-64 YRS Unknown Completed [facility] Influenza Virus Vaccine Unknown Completed [facility] Influenza Virus Vaccine Quad .5 mL IM 6+ MO (FLUZONE/FLULAVAL/F LUARIX) Unknown Completed [facility] TDAP (ADACEL) VACCINE Unknown Completed [facility] Influenza Virus Vaccine Recomb Quad IM, Preserv and ABX Free 18-64 YRS Unknown Completed [facility] Influenza Virus Vaccine Unknown Completed [facility] Influenza Virus Vaccine Quad .5 mL IM 6+ MO (FLUZONE/FLULAVAL/F LUARIX) Unknown Completed [facility] TDAP (ADACEL) VACCINE Unknown Completed [facility] Influenza Virus Vaccine Recomb Quad IM, Preserv and ABX Free 18-64 YRS Unknown Completed [facility] Influenza Virus Vaccine Unknown Completed [facility] Influenza Virus Vaccine Quad .5 mL IM 6+ MO (FLUZONE/FLULAVAL/F LUARIX) Unknown Completed [facility] TDAP (ADACEL) VACCINE Unknown Completed [facility] Influenza Virus Vaccine Recomb Quad IM, Preserv and ABX Free 18-64 YRS Unknown Completed [facility] Influenza Virus Vaccine Unknown Completed [facility] Influenza Virus Vaccine Quad .5 mL IM 6+ MO (FLUZONE/FLULAVAL/F LUARIX) Unknown Completed [facility] TDAP (ADACEL) VACCINE Unknown Completed [facility] Influenza Virus Vaccine Recomb Quad IM, Preserv and ABX Free 18-64 YRS Unknown Completed [facility] Influenza Virus Vaccine Unknown Completed [facility] Influenza Virus Vaccine Quad .5 mL IM 6+ MO (FLUZONE/FLULAVAL/F LUARIX) Unknown Completed [facility] TDAP (ADACEL) VACCINE Unknown Completed [facility] Influenza Virus Vaccine Recomb Quad IM, Preserv and ABX Free 18-64 YRS Unknown Completed [facility] Influenza Virus Vaccine Unknown Completed [facility] Influenza Virus Vaccine Quad .5 mL IM 6+ MO (FLUZONE/FLULAVAL/F LUARIX) Unknown Completed [facility] TDAP (ADACEL) VACCINE Unknown Completed [facility] Influenza Virus Vaccine Recomb Quad IM, Preserv and ABX Free 18-64 YRS Unknown Completed [facility] Influenza Virus Vaccine Unknown Completed [facility] Influenza Virus Vaccine Quad .5 mL IM 6+ MO (FLUZONE/FLULAVAL/F LUARIX) Unknown Completed [facility] TDAP (ADACEL) VACCINE Unknown Completed [facility] Influenza Virus Vaccine Recomb Quad IM, Preserv and ABX Free 18-64 YRS Unknown Completed [facility] Influenza Virus Vaccine Unknown Completed [facility] Influenza Virus Vaccine Quad .5 mL IM 6+ MO (FLUZONE/FLULAVAL/F LUARIX) Unknown Completed [facility] TDAP (ADACEL) VACCINE Unknown Completed [facility] Influenza Virus Vaccine Recomb Quad IM, Preserv and ABX Free 18-64 YRS Unknown Completed [facility] Influenza Virus Vaccine Unknown Completed [facility] Influenza Virus Vaccine Quad .5 mL IM 6+ MO (FLUZONE/FLULAVAL/F LUARIX) Unknown Completed [facility] TDAP (ADACEL) VACCINE Unknown Completed [facility] Influenza Virus Vaccine Recomb Quad IM, Preserv and ABX Free 18-64 YRS Unknown Completed [facility] Influenza Virus Vaccine Unknown Completed [facility] Influenza Virus Vaccine Quad .5 mL IM 6+ MO (FLUZONE/FLULAVAL/F LUARIX) Unknown Completed [facility] TDAP (ADACEL) VACCINE Unknown Completed [facility] Influenza Virus Vaccine Recomb Quad IM, Preserv and ABX Free 18-64 YRS Unknown Completed [facility] Influenza Virus Vaccine Unknown Completed [facility] Influenza Virus Vaccine Quad .5 mL IM 6+ MO (FLUZONE/FLULAVAL/F LUARIX) Unknown Completed [facility] TDAP (ADACEL) VACCINE Unknown Completed [facility] Influenza Virus Vaccine Recomb Quad IM, Preserv and ABX Free 18-64 YRS Unknown Completed [facility] Influenza Virus Vaccine Unknown Completed [facility] Influenza Virus Vaccine Quad .5 mL IM 6+ MO (FLUZONE/FLULAVAL/F LUARIX) Unknown Completed [facility] TDAP (ADACEL) VACCINE Unknown Completed [facility] Influenza Virus Vaccine Recomb Quad IM, Preserv and ABX Free 18-64 YRS Unknown Completed [facility] Influenza Virus Vaccine Unknown Completed [facility] Influenza Virus Vaccine Quad .5 mL IM 6+ MO (FLUZONE/FLULAVAL/F LUARIX) Unknown Completed [facility] TDAP (ADACEL) VACCINE Unknown Completed [facility] Influenza Virus Vaccine Recomb Quad IM, Preserv and ABX Free 18-64 YRS Unknown Completed [facility] Influenza Virus Vaccine Unknown Completed [facility] Influenza Virus Vaccine Quad .5 mL IM 6+ MO (FLUZONE/FLULAVAL/F LUARIX) Unknown Completed [facility] TDAP (ADACEL) VACCINE Unknown Completed [facility] Influenza Virus Vaccine Recomb Quad IM, Preserv and ABX Free 18-64 YRS Unknown Completed [facility] Influenza Virus Vaccine Unknown Completed [facility] Influenza Virus Vaccine Quad .5 mL IM 6+ MO (FLUZONE/FLULAVAL/F LUARIX) Unknown Completed [facility] TDAP (ADACEL) VACCINE Unknown Completed [facility] Influenza Virus Vaccine Recomb Quad IM, Preserv and ABX Free 18-64 YRS Unknown Completed [facility] Influenza Virus Vaccine Unknown Completed [facility] Influenza Virus Vaccine Quad .5 mL IM 6+ MO (FLUZONE/FLULAVAL/F LUARIX) Unknown Completed [facility] TDAP (ADACEL) VACCINE Unknown Completed [facility] Influenza Virus Vaccine Recomb Quad IM, Preserv and ABX Free 18-64 YRS Unknown Completed [facility] Influenza Virus Vaccine Unknown Completed [facility] Influenza Virus Vaccine Quad .5 mL IM 6+ MO (FLUZONE/FLULAVAL/F LUARIX) Unknown Completed [facility] TDAP (ADACEL) VACCINE Unknown Completed [facility] Influenza Virus Vaccine Recomb Quad IM, Preserv and ABX Free 18-64 YRS Unknown Completed [facility] Influenza Virus Vaccine Unknown Completed [facility] Influenza Virus Vaccine Quad .5 mL IM 6+ MO (FLUZONE/FLULAVAL/F LUARIX) Unknown Completed [facility] TDAP (ADACEL) VACCINE Unknown Completed [facility] Influenza Virus Vaccine Recomb Quad IM, Preserv and ABX Free 18-64 YRS Unknown Completed [facility] Influenza Virus Vaccine Unknown Completed [facility] Influenza Virus Vaccine Quad .5 mL IM 6+ MO (FLUZONE/FLULAVAL/F LUARIX) Unknown Completed [facility] TDAP (ADACEL) VACCINE Unknown Completed [facility] Influenza Virus Vaccine Recomb Quad IM, Preserv and ABX Free 18-64 YRS Unknown Completed [facility] Influenza Virus Vaccine Unknown Completed [facility] Influenza Virus Vaccine Quad .5 mL IM 6+ MO (FLUZONE/FLULAVAL/F LUARIX) Unknown Completed [facility] TDAP (ADACEL) VACCINE Unknown Completed [facility] Influenza Virus Vaccine Recomb Quad IM, Preserv and ABX Free 18-64 YRS Unknown Completed [facility] Influenza Virus Vaccine Unknown Completed [facility] Influenza Virus Vaccine Quad .5 mL IM 6+ MO (FLUZONE/FLULAVAL/F LUARIX) Unknown Completed [facility] TDAP (ADACEL) VACCINE Unknown Completed [facility] Influenza Virus Vaccine Recomb Quad IM, Preserv and ABX Free 18-64 YRS Unknown Completed [facility] Influenza Virus Vaccine Unknown Completed [facility] Influenza Virus Vaccine Quad .5 mL IM 6+ MO (FLUZONE/FLULAVAL/F LUARIX) Unknown Completed [facility] TDAP (ADACEL) VACCINE Unknown Completed [facility] Influenza Virus Vaccine Recomb Quad IM, Preserv and ABX Free 18-64 YRS Unknown Completed [facility] Influenza Virus Vaccine Unknown Completed [facility] Influenza Virus Vaccine Quad .5 mL IM 6+ MO (FLUZONE/FLULAVAL/F LUARIX) Unknown Completed [facility] TDAP (ADACEL) VACCINE Unknown Completed [facility] Influenza Virus Vaccine Recomb Quad IM, Preserv and ABX Free 18-64 YRS Unknown Completed [facility] Influenza Virus Vaccine Unknown Completed [facility] Influenza Virus Vaccine Quad .5 mL IM 6+ MO (FLUZONE/FLULAVAL/F LUARIX) Unknown Completed [facility] TDAP (ADACEL) VACCINE Unknown Completed [facility] Influenza Virus Vaccine Recomb Quad IM, Preserv and ABX Free 18-64 YRS Unknown Completed [facility] Influenza Virus Vaccine Unknown Completed [facility] Influenza Virus Vaccine Quad .5 mL IM 6+ MO (FLUZONE/FLULAVAL/F LUARIX) Unknown Completed [facility] TDAP (ADACEL) VACCINE Unknown Completed [facility] Influenza Virus Vaccine Recomb Quad IM, Preserv and ABX Free 18-64 YRS Unknown Completed [facility] Influenza Virus Vaccine Unknown Completed [facility] Influenza Virus Vaccine Quad .5 mL IM 6+ MO (FLUZONE/FLULAVAL/F LUARIX) Unknown Completed [facility] TDAP (ADACEL) VACCINE Unknown Completed [facility] Influenza Virus Vaccine Recomb Quad IM, Preserv and ABX Free 18-64 YRS Unknown Completed [facility] Influenza Virus Vaccine Unknown Completed [facility] Influenza Virus Vaccine Quad .5 mL IM 6+ MO (FLUZONE/FLULAVAL/F LUARIX) Unknown Completed [facility] TDAP (ADACEL) VACCINE Unknown Completed [facility] Influenza Virus Vaccine Recomb Quad IM, Preserv and ABX Free 18-64 YRS Unknown Completed [facility] Influenza Virus Vaccine Unknown Completed [facility] Influenza Virus Vaccine Quad .5 mL IM 6+ MO (FLUZONE/FLULAVAL/F LUARIX) Unknown Completed [facility] TDAP (ADACEL) VACCINE Unknown Completed [facility] Influenza Virus Vaccine Recomb Quad IM, Preserv and ABX Free 18-64 YRS Unknown Completed [facility] Influenza Virus Vaccine Unknown Completed [facility] Influenza Virus Vaccine Quad .5 mL IM 6+ MO (FLUZONE/FLULAVAL/F LUARIX) Unknown Completed [facility] TDAP (ADACEL) VACCINE Unknown Completed [facility] Influenza Virus Vaccine Recomb Quad IM, Preserv and ABX Free 18-64 YRS Unknown Completed [facility] Influenza Virus Vaccine Unknown Completed [facility] Influenza Virus Vaccine Quad .5 mL IM 6+ MO (FLUZONE/FLULAVAL/F LUARIX) Unknown Completed [facility] TDAP (ADACEL) VACCINE Unknown Completed [facility] Influenza Virus Vaccine Recomb Quad IM, Preserv and ABX Free 18-64 YRS Unknown Completed [facility] Influenza Virus Vaccine Unknown Completed [facility] Influenza Virus Vaccine Quad .5 mL IM 6+ MO (FLUZONE/FLULAVAL/F LUARIX) Unknown Completed [facility] TDAP (ADACEL) VACCINE Unknown Completed [facility] Influenza Virus Vaccine Recomb Quad IM, Preserv and ABX Free 18-64 YRS Unknown Completed [facility] Influenza Virus Vaccine Unknown Completed [facility] Influenza Virus Vaccine Quad .5 mL IM 6+ MO (FLUZONE/FLULAVAL/F LUARIX) Unknown Completed [facility] TDAP (ADACEL) VACCINE Unknown Completed [facility] Influenza Virus Vaccine Recomb Quad IM, Preserv and ABX Free 18-64 YRS Unknown Completed [facility] Influenza Virus Vaccine Unknown Completed [facility] Influenza Virus Vaccine Quad .5 mL IM 6+ MO (FLUZONE/FLULAVAL/F LUARIX) Unknown Completed [facility] TDAP (ADACEL) VACCINE Unknown Completed [facility] Influenza Virus Vaccine Recomb Quad IM, Preserv and ABX Free 18-64 YRS Unknown Completed [facility] Influenza Virus Vaccine Unknown Completed [facility] Influenza Virus Vaccine Quad .5 mL IM 6+ MO (FLUZONE/FLULAVAL/F LUARIX) Unknown Completed [facility] TDAP (ADACEL) VACCINE Unknown Completed [facility] Influenza Virus Vaccine Recomb Quad IM, Preserv and ABX Free 18-64 YRS Unknown Completed [facility] Influenza Virus Vaccine Unknown Completed [facility] Influenza Virus Vaccine Quad .5 mL IM 6+ MO (FLUZONE/FLULAVAL/F LUARIX) Unknown Completed [facility] TDAP (ADACEL) VACCINE Unknown Completed [facility] Influenza Virus Vaccine Recomb Quad IM, Preserv and ABX Free 18-64 YRS Unknown Completed [facility] Influenza Virus Vaccine Unknown Completed [facility] Influenza Virus Vaccine Quad .5 mL IM 6+ MO (FLUZONE/FLULAVAL/F LUARIX) Unknown Completed [facility] TDAP (ADACEL) VACCINE Unknown Completed [facility] Influenza Virus Vaccine Recomb Quad IM, Preserv and ABX Free 18-64 YRS Unknown Completed [facility] Influenza Virus Vaccine Unknown Completed [facility] Influenza Virus Vaccine Quad .5 mL IM 6+ MO (FLUZONE/FLULAVAL/F LUARIX) Unknown Completed [facility] TDAP (ADACEL) VACCINE Unknown Completed [facility] Influenza Virus Vaccine Recomb Quad IM, Preserv and ABX Free 18-64 YRS Unknown Completed [facility] Influenza Virus Vaccine Unknown Completed [facility] Influenza Virus Vaccine Quad .5 mL IM 6+ MO (FLUZONE/FLULAVAL/F LUARIX) Unknown Completed [facility] TDAP (ADACEL) VACCINE Unknown Completed [facility] Influenza Virus Vaccine Recomb Quad IM, Preserv and ABX Free 18-64 YRS Unknown Completed [facility] Influenza Virus Vaccine Unknown Completed [facility] Influenza Virus Vaccine Quad .5 mL IM 6+ MO (FLUZONE/FLULAVAL/F LUARIX) Unknown Completed [facility] TDAP (ADACEL) VACCINE Unknown Completed [facility] Influenza Virus Vaccine Quad .5 mL IM 6+ MO (FLUZONE/FLULAVAL/F LUARIX) Unknown Completed [facility] TDAP (ADACEL) VACCINE Unknown Completed [facility] Influenza Virus Vaccine Quad .5 mL IM 6+ MO (FLUZONE/FLULAVAL/F LUARIX) Unknown Completed [facility] TDAP (ADACEL) VACCINE Unknown Completed [facility] Influenza Virus Vaccine Quad .5 mL IM 6+ MO (FLUZONE/FLULAVAL/F LUARIX) Unknown Completed [facility] TDAP (ADACEL) VACCINE Unknown Completed [facility] Influenza Virus Vaccine Quad .5 mL IM 6+ MO (FLUZONE/FLULAVAL/F LUARIX) Unknown Completed [facility] TDAP (ADACEL) VACCINE Unknown Completed [facility] Influenza Virus Vaccine Quad .5 mL IM 6+ MO (FLUZONE/FLULAVAL/F LUARIX) Unknown Completed [facility] TDAP (ADACEL) VACCINE Unknown Completed [facility] Influenza Virus Vaccine Quad .5 mL IM 6+ MO (FLUZONE/FLULAVAL/F LUARIX) Unknown Completed [facility] TDAP (ADACEL) VACCINE Unknown Completed [facility] Influenza Virus Vaccine Quad .5 mL IM 6+ MO (FLUZONE/FLULAVAL/F LUARIX) Unknown Completed [facility] TDAP (ADACEL) VACCINE Unknown Completed [facility] Influenza Virus Vaccine Quad .5 mL IM 6+ MO (FLUZONE/FLULAVAL/F LUARIX) Unknown Completed [facility] TDAP (ADACEL) VACCINE Unknown Completed [facility] Influenza Virus Vaccine Quad .5 mL IM 6+ MO (FLUZONE/FLULAVAL/F LUARIX) Unknown Completed [facility] TDAP (ADACEL) VACCINE Unknown Completed [facility] Influenza Virus Vaccine Recomb Quad IM, Preserv and ABX Free 18-64 YRS Unknown Completed [facility] Influenza Virus Vaccine Unknown Completed [facility] Influenza Virus Vaccine Quad IM, Preserv and ABX Free 6 MO-64 YRS (FLUCELVAX) Unknown Completed [facility] Influenza Virus Vaccine Quad .5 mL IM 6+ MO (FLUZONE/FLULAVAL/F LUARIX) Unknown Completed [facility] TDAP (ADACEL) VACCINE Unknown Completed [facility] Influenza Virus Vaccine Recomb Quad IM, Preserv and ABX Free 18-64 YRS Unknown Completed [facility] Influenza Virus Vaccine Unknown Completed [facility] Influenza Virus Vaccine Quad IM, Preserv and ABX Free 6 MO-64 YRS (FLUCELVAX) Unknown Completed [facility] Influenza Virus Vaccine Quad .5 mL IM 6+ MO (FLUZONE/FLULAVAL/F LUARIX) Unknown Completed [facility] TDAP (ADACEL) VACCINE Unknown Completed [facility] Influenza Virus Vaccine Recomb Quad IM, Preserv and ABX Free 18-64 YRS Unknown Completed [facility] Influenza Virus Vaccine Unknown Completed [facility] Influenza Virus Vaccine Quad IM, Preserv and ABX Free 6 MO-64 YRS (FLUCELVAX) Unknown Completed [facility] Vital Signs Vital Name Observation Time Observation Value Comments S ource Systolic blood pressure 2024-04-19 15:51:38 123 mm[Hg] [facility] Diastolic blood pressure 2024-04-19 15:51:38 90 mm[Hg] [facility] Heart rate 2024-04-19 15:51:38 87 /min [facility] Body temperature 2024-04-19 15:51:38 36.78 [facility] Respiratory rate 2024-04-19 15:51:38 14 /min [facility] Oxygen saturation in Arterial blood by Pulse oximetry 2024-04-19 15:51:38 100 /min [facility] Body height 2024-04-19 13:54:00 154.9 cm [facility] Body weight 2024-04-19 13:54:00 54.432 kg [facility] BMI 2024-04-19 13:54:00 22.67 kg/m2 [facility] Systolic blood pressure 2024-04-12 20:00:00 119 mm[Hg] [facility] Diastolic blood pressure 2024-04-12 20:00:00 80 mm[Hg] [facility] Heart rate 2024-04-12 20:00:00 88 /min [facility] Respiratory rate 2024-04-12 20:00:00 18 /min [facility] Oxygen saturation in Arterial blood by Pulse oximetry 2024-04-12 20:00:00 99 /min [facility] Body temperature 2024-04-12 19:00:00 36.67 [facility] Body height 2024-04-12 17:57:10 154.9 cm [facility] Body weight 2024-04-12 17:57:10 54.432 kg [facility] BMI 2024-04-12 17:57:10 22.67 kg/m2 [facility] Systolic blood pressure 2024-04-12 16:25:00 124 mm[Hg] [facility] Diastolic blood pressure 2024-04-12 16:25:00 95 mm[Hg] [facility] Heart rate 2024-04-12 16:25:00 106 /min [facility] Body temperature 2024-04-12 16:25:00 37.17 [facility] Respiratory rate 2024-04-12 16:25:00 18 /min [facility] Oxygen saturation in Arterial blood by Pulse oximetry 2024-04-12 16:25:00 100 /min [facility] Body height 2024-04-12 15:25:00 154.9 cm [facility] Body weight 2024-04-12 15:25:00 54.432 kg [facility] BMI 2024-04-12 15:25:00 22.67 kg/m2 [facility] Systolic blood pressure 2024-03-13 13:25:00 129 mm[Hg] [facility] Diastolic blood pressure 2024-03-13 13:25:00 87 mm[Hg] [facility] Heart rate 2024-03-13 13:25:00 116 /min [facility] Body temperature 2024-03-13 13:25:00 35.61 [facility] Respiratory rate 2024-03-13 13:25:00 20 /min [facility] Oxygen saturation in Arterial blood by Pulse oximetry 2024-03-13 13:25:00 94 /min [facility] Body height 2024-03-10 14:43:00 154.9 cm [facility] Body weight 2024-03-10 14:43:00 44.453 kg [facility] BMI 2024-03-10 14:43:00 18.52 kg/m2 [facility] Systolic blood pressure 2024-03-05 16:10:00 142 mm[Hg] [facility] Diastolic blood pressure 2024-03-05 16:10:00 87 mm[Hg] [facility] Heart rate 2024-03-05 16:10:00 94 /min [facility] Body temperature 2024-03-05 16:10:00 37 [facility] Respiratory rate 2024-03-05 16:10:00 16 /min [facility] Oxygen saturation in Arterial blood by Pulse oximetry 2024-03-05 16:10:00 100 /min [facility] Body height 2024-03-04 11:42:00 154[facility]9 [facility] 2024-03-04 11:42:00 45.36 kg [facility] BMI 2024-03-04 11:42:00 18.89 kg/m2 [facility] Systolic blood pressure 2024-02-27 17:17:00 138 mm[Hg] [facility] Diastolic blood pressure 2024-02-27 17:17:00 91 mm[Hg] [facility] Heart rate 2024-02-27 17:17:00 97 /min [facility] Body temperature 2024-02-27 17:17:00 36.67 [facility] Respiratory rate 2024-02-27 17:17:00 16 /min [facility] Oxygen saturation in Arterial blood by Pulse oximetry 2024-02-27 17:17:00 99 /min [facility] Body height 2024-02-27 13:16:00 154.9 cm [facility] Body weight 2024-02-27 13:16:00 45.36 kg [facility] BMI 2024-02-27 13:16:00 18.89 kg/m2 [facility] Systolic blood pressure 2024-02-27 15:50:00 122 mm[Hg] [facility] Diastolic blood pressure 2024-02-27 15:50:00 81 mm[Hg] [facility] Heart rate 2024-02-27 15:50:00 102 /min [facility] Respiratory rate 2024-02-27 15:50:00 13 /min [facility] Oxygen saturation in Arterial blood by Pulse oximetry 2024-02-27 15:50:00 98 /min [facility] Body temperature 2024-02-27 15:20:00 36 [facility] Body height 2024-02-27 13:16:00 154.9 [facility] Body weight 2024-02-27 13:16:00 45.36 kg [facility] BMI 2024-02-27 13:16:00 18.89 kg/m2 [facility] Systolic blood pressure 2023-05-19 17:24:00 129 mm[Hg] [facility] Diastolic blood pressure 2023-05-19 17:24:00 83 mm[Hg] [facility] [facility] 2023-05-19 17:24:00 77 /min [facility] Respiratory rate 2023-05-19 17:24:00 15 /min [facility] Oxygen saturation in Arterial blood by Pulse oximetry 2023-05-19 17:24:00 100 /min [facility] Body temperature 2023-05-19 14:50:00 37.28 Irene [facility] Body height 2023-05-19 14:50:00 154.9 cm [facility] Body weight 2023-05-19 14:50:00 58.968 kg [facility] BMI 2023-05-19 14:50:00 24.56 kg/m2 [facility] Systolic blood pressure 2023-01-15 16:56:00 132 mm[Hg] [facility] Diastolic blood pressure 2023-01-15 16:56:00 91 mm[Hg] [facility] Heart rate 2023-01-15 16:56:00 67 /min [facility] Body temperature 2023-01-15 16:56:00 36.78 [facility] Respiratory rate 2023-01-15 16:56:00 20 /min [facility] Oxygen saturation in Arterial blood by Pulse oximetry 2023-01-15 16:56:00 100 /min [facility] Body height 2023-01-12 09:05:00 154.9 cm [facility] Body weight 2023-01-12 09:05:00 58.968 kg [facility] BMI 2023-01-12 09:05:00 24.56 kg/m2 [facility] Systolic blood pressure 2022-11-21 21:40:00 122 mm[Hg] [facility] Diastolic blood pressure 2022-11-21 21:40:00 90 mm[Hg] [facility] Heart rate 2022-11-21 21:40:00 92 /min [facility] Respiratory rate 2022-11-21 21:40:00 16 /min [facility] Oxygen saturation in Arterial blood by Pulse oximetry 2022-11-21 21:40:00 99 /min [facility] Body temperature 2022-11-21 18:07:00 37.28 [facility] Body weight 2022-11-21 18:07:00 68.04 kg [facility] BMI 2022-11-21 18:07:00 28.34 kg/m2 [facility] Systolic blood pressure 2022-09-05 17:22:00 139 mm[Hg] [facility] Diastolic blood pressure 2022-09-05 17:22:00 91 mm[Hg] [facility] Heart rate 2022-09-05 17:22:00 120 /min [facility] Respiratory rate 2022-09-05 17:22:00 18 /min [facility] Oxygen saturation in Arterial blood by Pulse oximetry 2022-09-05 17:22:00 99 /min [facility] Body temperature 2022-09-05 13:43:00 37.11 [facility] Body weight 2022-09-05 13:43:00 68.04 kg [facility] BMI 2022-09-05 13:43:00 28.34 kg/m2 [facility] Systolic blood pressure 2022-08-01 00:49:00 138 mm[Hg] [facility] Diastolic blood pressure 2022-08-01 00:49:00 104 mm[Hg] [facility] Heart rate 2022-08-01 00:49:00 108 /min [facility] Respiratory rate 2022-08-01 00:49:00 18 /min [facility] Oxygen saturation in Arterial blood by Pulse oximetry 2022-08-01 00:49:00 99 /min [facility] Body temperature 2022-07-31 22:52:00 37.11 [facility] Body height 2022-07-31 22:52:00 154.9 cm [facility] Body weight 2022-07-31 22:52:00 68.04 kg [facility] BMI 2022-07-31 22:52:00 28.34 kg/m2 [facility] Systolic blood pressure 2022-07-15 15:32:00 130 mm[Hg] [facility] Diastolic blood pressure 2022-07-15 15:32:00 90 mm[Hg] [facility] Heart rate 2022-07-15 15:31:00 81 /min [facility] Body temperature 2022-07-15 15:31:00 36.94 [facility] Respiratory rate 2022-07-15 15:31:00 16 /min [facility] Body weight 2022-07-15 15:31:00 68.493 kg [facility] BMI 2022-07-15 15:31:00 28.53 kg/m2 [facility] Oxygen saturation in Arterial blood by Pulse oximetry 2022-07-15 15:31:00 99 /min [facility] Systolic blood pressure 2022-06-23 15:26:00 111 mm[Hg] [facility] Diastolic blood pressure 2022-06-23 15:26:00 75 mm[Hg] [facility] Heart rate 2022-06-23 15:26:00 108 /min [facility] Body temperature 2022-06-23 15:26:00 36.83 Irene [facility] Respiratory rate 2022-06-23 15:26:00 18 /min [facility] Body height 2022-06-23 15:26:00 154.9 cm [facility] Body weight 2022-06-23 15:26:00 71.385 kg [facility] BMI 2022-06-23 15:26:00 29.74 kg/m2 [facility] Oxygen saturation in Arterial blood by Pulse oximetry 2022-06-23 15:26:00 99 /min [facility] Systolic blood pressure 2022-05-05 22:05:00 126 mm[Hg] [facility] Diastolic blood pressure 2022-05-05 22:05:00 75 mm[Hg] [facility] Heart rate 2022-05-05 22:05:00 99 /min [facility] Respiratory rate 2022-05-05 22:05:00 16 /min [facility] Oxygen saturation in Arterial blood by Pulse oximetry 2022-05-05 22:05:00 99 /min [facility] Body temperature 2022-05-05 18:24:00 37.11 Irene [facility] Body height 2022-05-05 18:24:00 154.9 cm [facility] Body weight 2022-05-05 18:24:00 54.432 kg [facility] BMI 2022-05-05 18:24:00 22.67 kg/m2 [facility] Systolic blood pressure 2022-04-26 14:28:00 135 mm[Hg] [facility] Diastolic blood pressure 2022-04-26 14:28:00 95 mm[Hg] [facility] Heart rate 2022-04-26 14:28:00 93 /min [facility] Body temperature 2022-04-26 14:28:00 36.89 [facility] Respiratory rate 2022-04-26 14:28:00 18 /min [facility] Body height 2022-04-26 14:28:00 154.9 cm [facility] Body weight 2022-04-26 14:28:00 54.432 kg [facility] BMI 2022-04-26 14:28:00 22.67 kg/m2 [facility] Oxygen saturation in Arterial blood by Pulse oximetry 2022-04-26 14:28:00 100 /min [facility] Systolic blood pressure 2022-04-26 00:21:00 151 mm[Hg] [facility] Diastolic blood pressure 2022-04-26 00:21:00 98 mm[Hg] [facility] Heart rate 2022-04-26 00:21:00 98 /min [facility] Body temperature 2022-04-26 00:21:00 36.72 Irene [facility] Respiratory rate 2022-04-26 00:21:00 18 /min [facility] Body height 2022-04-26 00:21:00 154.9 cm [facility] Body weight 2022-04-26 00:21:00 54.432 kg [facility] BMI 2022-04-26 00:21:00 22.67 kg/m2 [facility] Oxygen saturation in Arterial blood by Pulse oximetry 2022-04-26 00:21:00 100 /min [facility] Systolic blood pressure 2022-04-09 14:39:00 122 mm[Hg] [facility] Diastolic blood pressure 2022-04-09 14:39:00 84 mm[Hg] [facility] Heart rate 2022-04-09 14:39:00 96 /min [facility] Body height 2022-04-09 14:39:00 154.9 cm [facility] Body weight 2022-04-09 14:39:00 60.328 kg [facility] BMI 2022-04-09 14:39:00 25.13 kg/m2 [facility] Oxygen saturation in Arterial blood by Pulse oximetry 2022-04-09 14:39:00 98 /min [facility] Systolic blood pressure 2022-04-07 22:43:36 131 mm[Hg] [facility] Diastolic blood pressure 2022-04-07 22:43:36 83 mm[Hg] [facility] Heart rate 2022-04-07 22:43:36 113 /min [facility] Respiratory rate 2022-04-07 22:43:36 18 /min [facility] Oxygen saturation in Arterial blood by Pulse oximetry 2022-04-07 22:43:36 97 /min [facility] Body temperature 2022-04-07 19:41:00 37.17 Irene [facility] Body height 2022-04-07 19:41:00 154.9 cm [facility] Body weight 2022-04-07 19:41:00 60.328 kg [facility] BMI 2022-04-07 19:41:00 25.13 kg/m2 [facility] Systolic blood pressure 2022-03-24 19:00:00 125 mm[Hg] [facility] Diastolic blood pressure 2022-03-24 19:00:00 86 mm[Hg] [facility] Heart rate 2022-03-24 19:00:00 93 /min [facility] Respiratory rate 2022-03-24 19:00:00 17 /min [facility] Oxygen saturation in Arterial blood by Pulse oximetry 2022-03-24 19:00:00 97 /min [facility] Body temperature 2022-03-24 13:33:00 36.78 Irene [facility] Systolic blood pressure 2022-03-15 19:23:00 128 mm[Hg] [facility] Diastolic blood pressure 2022-03-15 19:23:00 89 mm[Hg] [facility] Heart rate 2022-03-15 19:23:00 104 /min [facility] Body weight 2022-03-15 19:23:00 60.328 kg [facility] BMI 2022-03-15 19:23:00 25.13 kg/m2 [facility] Oxygen saturation in Arterial blood by Pulse oximetry 2022-03-15 19:23:00 98 /min [facility] Systolic blood pressure 2022-03-15 15:02:00 115 mm[Hg] [facility] Diastolic blood pressure 2022-03-15 15:02:00 70 mm[Hg] [facility] Heart rate 2022-03-15 15:02:00 85 /min [facility] Respiratory rate 2022-03-15 15:02:00 20 /min [facility] Oxygen saturation in Arterial blood by Pulse oximetry 2022-03-15 15:02:00 99 /min [facility] Body temperature 2022-03-15 13:38:00 36.94 Irene [facility] Body height 2022-03-15 13:38:00 154.9 cm [facility] Body weight 2022-03-15 13:38:00 54.432 kg [facility] BMI 2022-03-15 13:38:00 22.67 kg/m2 [facility] Systolic blood pressure 2022-03-11 16:30:00 124 mm[Hg] [facility] Diastolic blood pressure 2022-03-11 16:30:00 88 mm[Hg] [facility] Heart rate 2022-03-11 16:30:00 93 /min [facility] Body temperature 2022-03-11 16:30:00 36.67 Irene [facility] Respiratory rate 2022-03-11 16:30:00 14 /min [facility] Oxygen saturation in Arterial blood by Pulse oximetry 2022-03-11 16:30:00 100 /min [facility] Body height 2022-03-11 14:19:00 154.9 cm [facility] Body weight 2022-03-11 14:19:00 58.968 kg [facility] BMI 2022-03-11 14:19:00 24.56 kg/m2 [facility] Systolic blood pressure 2022-02-27 14:14:00 140 mm[Hg] [facility] Diastolic blood pressure 2022-02-27 14:14:00 90 mm[Hg] [facility] Heart rate 2022-02-27 14:14:00 103 /min [facility] Body height 2022-02-27 14:14:00 154.9 cm [facility] Body weight 2022-02-27 14:14:00 59.194 kg [facility] BMI 2022-02-27 14:14:00 24.66 kg/m2 [facility] Oxygen saturation in Arterial blood by Pulse oximetry 2022-02-27 14:14:00 100 /min [facility] Systolic blood pressure 2022-02-27 13:19:00 131 mm[Hg] [facility] Diastolic blood pressure 2022-02-27 13:19:00 86 mm[Hg] [facility] Heart rate 2022-02-27 13:19:00 102 /min [facility] Body temperature 2022-02-27 13:19:00 36.33 [facility] Body height 2022-02-27 13:19:00 154.9 cm [facility] Body weight 2022-02-27 13:19:00 58.968 kg [facility] BMI 2022-02-27 13:19:00 24.56 kg/m2 [facility] Oxygen saturation in Arterial blood by Pulse oximetry 2022-02-27 13:19:00 99 /min [facility] Systolic blood pressure 2022-02-21 08:06:00 135 mm[Hg] [facility] Diastolic blood pressure 2022-02-21 08:06:00 97 mm[Hg] [facility] Heart rate 2022-02-21 08:06:00 98 /min [facility] Respiratory rate 2022-02-21 08:06:00 16 /min [facility] Oxygen saturation in Arterial blood by Pulse oximetry 2022-02-21 08:06:00 97 /min [facility] Body temperature 2022-02-21 06:16:00 36.94 Irene [facility] Body height 2022-02-21 06:16:00 154.9 cm [facility] Body weight 2022-02-21 06:16:00 60.963 kg [facility] BMI 2022-02-21 06:16:00 25.39 kg/m2 [facility] Systolic blood pressure 2022 20:08:00 136 mm[Hg] [facility] Diastolic blood pressure 2022 20:08:00 96 mm[Hg] [facility] Heart rate 2022 20:08:00 100 /min [facility] Respiratory rate 2022 20:08:00 20 /min [facility] Oxygen saturation in Arterial blood by Pulse oximetry 2022 20:08:00 98 /min [facility] Body temperature 2022 16:56:00 37.06 Irene [facility] Body weight 2022 16:56:00 54.432 kg [facility] BMI 2022 16:56:00 22.67 kg/m2 [facility] Systolic blood pressure 2022-02-05 14:31:00 128 mm[Hg] [facility] Diastolic blood pressure 2022-02-05 14:31:00 84 mm[Hg] [facility] Heart rate 2022-02-05 14:31:00 86 /min [facility] Body temperature 2022-02-05 14:31:00 37.89 Irene [facility] Respiratory rate 2022-02-05 14:31:00 18 /min [facility] Body height 2022-02-05 14:31:00 154.9 cm [facility] Body weight 2022-02-05 14:31:00 54.432 kg [facility] BMI 2022-02-05 14:31:00 22.67 kg/m2 [facility] Oxygen saturation in Arterial blood by Pulse oximetry 2022-02-05 14:31:00 98 /min [facility] Systolic blood pressure 2022-01-18 14:50:00 144 mm[Hg] [facility] Diastolic blood pressure 2022-01-18 14:50:00 92 mm[Hg] [facility] Heart rate 2022-01-18 14:50:00 94 /min [facility] Respiratory rate 2022-01-18 14:50:00 20 /min [facility] Oxygen saturation in Arterial blood by Pulse oximetry 2022-01-18 14:50:00 99 /min [facility] Body weight 2022-01-18 10:18:00 54.432 kg [facility] BMI 2022-01-18 10:18:00 22.67 kg/m2 [facility] Body temperature 2022-01-18 10:15:00 36.72 Irene [facility] Systolic blood pressure 2022-01-15 15:48:26 125 mm[Hg] [facility] Diastolic blood pressure 2022-01-15 15:48:26 85 mm[Hg] [facility] Heart rate 2022-01-15 15:48:26 95 /min [facility] Respiratory rate 2022-01-15 15:48:26 18 /min [facility] Oxygen saturation in Arterial blood by Pulse oximetry 2022-01-15 15:48:26 98 /min [facility] Body temperature 2022-01-15 13:32:00 37.11 [facility] Body height 2022-01-15 13:32:00 154.9 cm [facility] Body weight 2022-01-15 13:32:00 54.432 kg [facility] BMI 2022-01-15 13:32:00 22.67 kg/m2 [facility] Systolic blood pressure 2022-01-09 00:37:11 127 mm[Hg] [facility] Diastolic blood pressure 2022-01-09 00:37:11 90 mm[Hg] [facility] Heart rate 2022-01-09 00:37:11 94 /min [facility] Body temperature 2022-01-09 00:37:11 37.11 [facility] Respiratory rate 2022-01-09 00:37:11 16 /min [facility] Oxygen saturation in Arterial blood by Pulse oximetry 2022-01-09 00:37:11 97 /min [facility] Body height 2022-01-08 23:03:00 154.9 cm [facility] Body weight 2022-01-08 23:03:00 58.06 kg [facility] BMI 2022-01-08 23:03:00 24.19 kg/m2 [facility] Systolic blood pressure 2021-12-12 18:00:00 126 mm[Hg] [facility] Diastolic blood pressure 2021-12-12 18:00:00 87 mm[Hg] [facility] Heart rate 2021-12-12 18:00:00 86 /min [facility] Body temperature 2021-12-12 18:00:00 36.89 Irene [facility] Respiratory rate 2021-12-12 18:00:00 18 /min [facility] Body height 2021-12-12 18:00:00 154.9 cm [facility] Body weight 2021-12-12 18:00:00 57.153 kg [facility] BMI 2021-12-12 18:00:00 23.81 kg/m2 [facility] Systolic blood pressure 2023-01-14 16:32:00 138 mm[Hg] [facility] Diastolic blood pressure 2023-01-14 16:32:00 84 mm[Hg] [facility] Heart rate 2023-01-14 16:32:00 67 /min [facility] Body temperature 2023-01-14 16:32:00 36.5 Irene [facility] Respiratory rate 2023-01-14 16:32:00 16 /min [facility] Oxygen saturation in Arterial blood by Pulse oximetry 2023-01-14 16:32:00 99 /min [facility] Body height 2023-01-12 09:05:00 154.9 cm [facility] Body weight 2023-01-12 09:05:00 58.968 kg [facility] BMI 2023-01-12 09:05:00 24.56 kg/m2 [facility] Procedures Procedure Date / Time Performed Performing Clinician Source CT ABDOMEN PELVIS WO CONTRAST 2024-04-19 14:51:33 Bernardo Levy [facility] POCT TEST 2024-04-19 14:21:00 Bernardo Levy [facility] LIPASE 2024-04-19 14:18:00 Bernardo Levy [facility] COMP. METABOLIC PANEL ([id number]) 2024-04-19 14:18:00 Bernardo Levy [facility] CBC WITH DIFF 2024-04-19 14:18:00 Bernardo Levy [facility] URINALYSIS 2024-04-19 14:18:00 Bernardo Levy [facility] XR ANKLE <3 VW LEFT 2024-04-12 18:36:00 Neeta Ureña [facility] XR FOOT <3 VW LEFT 2024-04-12 18:36:00 Niranjan Neeta [facility] XR TIBIA FIBULA 2 VW LEFT 2024-04-12 18:36:00 Niranjan Neeta [facility] CT TRAUMA HEAD WO CONTRAST 2024-04-12 18:27:49 [address] [facility] CT TRAUMA CERVICAL SPINE WO CONTRAST 2024-04-12 18:27:49 [address] [facility] CT TRAUMA THORACIC SPINE WO CONTRAST 2024-04-12 18:27:[address] [facility] CT TRAUMA LUMBAR SPINE WO CONTRAST 04-12 18:27:49 Niranjan [facility] XR CHEST 1 VW 2024-04-12 15:50:27 Maggie Hamilton [facility] COMP. METABOLIC PANEL ([id number]) 2024-04-12 15:43:00 Maggie Hamilton [facility] CBC WITH DIFF 2024-04-12 15:43:00 Maggie Hamilton [facility] HB ABO GROUPING 2024-04-12 15:43:00 Maggie Hamilton [facility] ER FAST ULTRASOUND 2024-04-12 15:36:51 Maggie Hamilton [facility] MAGNESIUM 2024-03-13 10:20:00 Ellis Burgess [facility] BASIC METABOLIC PANEL (NA, K , CL, CO2, GLUCOSE, BUN, CREATININE, CA) 2024-03-13 10:20:00 Ellis Bugress [facility] CBC WITH DIFF 2024-03-13 10:20:00 Ellis Burgess [facility] FECAL PATHOGENS BY PCR 2024-03-12 17:51:00 Gisela Crews [facility] CLOSTRIDIUM DIFFICILE TOXIN 2024-03-12 17:50:00 [facility] C. DIFFICILE TOXIN B GENE (TCDB) BY PCR 2024-03-12 17:50:00 Gisela Crews [facility] SUPERIOR MESENTERIC ARTERY D UPLEX - BY VASCULAR LAB 2024-03-12 14:06:02 [facility] 2024-03-12 11:14:00 [facility]OLIC PANEL (NA, K , CL, CO2, GLUCOSE, BUN, CREATININE, CA) 2024-03-12 11:14:00 [facility] WITHOUT DIFF 2024-03-12 11:14:00 [facility] 2024-03-11 10:47:00 Kitty [facility] BASIC METABOLIC PANEL (NA, K , CL, CO2, GLUCOSE, BUN, CREATININE, CA) 2024-03-11 10:47:00 Kitty [facility] CBC WITH DIFF 2024-03-11 [facility]:47[facility] CT ABDOMEN PELVIS WO CONTRAST 2024-03-10 19:46:10 Venkat [facility] LIPASE 2024-03-10 15:42:00 Venkat [facility] TEST, SERUM 2024-03-10 15:42:00 Alfredo Parra [facility] COMP. METABOLIC PANEL ([id number]) 2024-03-10 15:42:00 [place] [facility] URINE DRUG (IMMUNOASSAY) - COMPREHENSIVE DRUG SCREEN 2024-03-10 15:42:00 Kitty [facility] CBC WITH DIFF 2024-03-10 [facility]24-[facility]-10 15:42:00 Venkat [facility] EXTRA TUBE DK. GREEN 2024-03-10 15:42:00 Fidel [facility] CT ABDOMEN PELVIS WO CONTRAST 2024-03-04 13:43:16 Fabio Avila [facility] POCT TEST 2024-03-04 13:14:00 Fabio Avila [facility] LIPASE 2024-03-04 13:13:00 Fabio Avila [facility] COMP. METABOLIC PANEL ([id number]) 2024-03-04 13:13:00 Fabio Avila [facility] CBC WITH DIFF 2024-03-04 13:13:00 Fabio Avila [facility] URINALYSIS 2024-03-04 13:13:00 Fabio Avila [facility] FLEXIBLE SIGMOIDOSCOPY (ENDO) 2024-02-27 15:42:37 Hany Bo [facility] FLEXIBLE SIGMOIDOSCOPY (ENDO) 2024-02-27 15:42:37 Hany Bo [facility] EGD (ENDO) 2024-02-27 15:39:44 Hany Bo [facility] EGD (ENDO) 2024-02-27 15:39:44 Hany Bo [facility] ESOPHAGOGASTRODUODENOSCOPY 2024-02-27 14:11:00 Chitra [facility] FLEXIBLE SIGMOIDOSCOPY 2024-02-27 14:11:00 Toi Mensah [facility] MAGNESIUM 2024-02-27 09:37:00 Jose Carlos Urbina [facility] HEPATIC FUNCTION PANEL ([id number]) (ALB,T.PRO,BILI T,BU/BC,ALT,AST,ALK PHOS) 2024-02-27 09:37:00 Jose Carlos Urbina [facility] BASIC METABOLIC PANEL (NA, K , CL, CO2, GLUCOSE, BUN, CREATININE, CA) 2024-02-27 09:37:00 Jose Carlos Urbina [facility] CBC WITH DIFF 2024-02-27 09:37:00 Jose Carlos Urbina [facility] MAGNESIUM 2024-02-27 09:37:00 Jose Carlos Urbina [facility] HEPATIC FUNCTION PANEL ([id number]) (ALB,T.PRO,BILI T,BU/BC,ALT,AST,ALK PHOS) 2024-02-27 09:37:00 Jose Carlos Urbina [facility] BASIC METABOLIC PANEL (NA, K , CL, CO2, GLUCOSE, BUN, CREATININE, CA) 2024-02-27 09:37:00 Jose Carlos Urbina [facility] CBC WITH DIFF 2024-02-27 09:37:00 Jose Carlos Urbina [facility] CALPROTECTIN, FECAL 2024-02-26 22:49:00 Jose Carlos Urbina [facility] CALPROTECTIN, FECAL 2024-02-26 22:49:00 Jose Carlos Urbina [facility] XR KUB 2024-02-26 20:00:00 Jose Carlos Urbina [facility] XR KUB 2024-02-26 20:00:00 Jose Carlos Urbina [facility] MAGNESIUM 2024-02-26 16:17:00 Chitra [facility] HEPATIC FUNCTION PANEL ([id number]) (ALB,T.PRO,BILI T,BU/BC,ALT,AST,ALK PHOS) 2024-02-26 16:17:00 Chitra [facility] BASIC METABOLIC PANEL (NA, K , CL, CO2, GLUCOSE, BUN, CREATININE, CA) 2024-02-26 16:17:00 Chitra [facility] PROTHROMBIN TIME / INR 2024-02-26 16:17:00 Chitra [facility] MAGNESIUM 2024-02-26 16:17:00 Chitra [facility] HEPATIC FUNCTION PANEL ([id number]) (ALB,T.PRO,BILI T,BU/BC,ALT,AST,ALK PHOS) 2024-02-26 16:17:00 Chitra [facility] BASIC METABOLIC PANEL (NA, K , CL, CO2, GLUCOSE, BUN, CREATININE, CA) 2024-02-26 16:17:00 Chitra [facility] PROTHROMBIN TIME / INR 2024-02-26 16:17:00 Chitra [facility] MR ABDOMEN W WO CONTRAST MRCP 2024-02-25 17:15:21 Chitra [facility] MR ABDOMEN W WO CONTRAST MRCP 2024-02-25 17:15:21 Chitra [facility] CREATINE KINASE 2024-02-25 10:52:00 Chitra [facility] HEPATIC FUNCTION PANEL (8007 6) (ALB,T.PRO,BILI T,BU/BC,ALT,AST,ALK PHOS) 2024-02-25 10:52:00 Jose Carlos Urbina [facility] BASIC METABOLIC PANEL (NA, K , CL, CO2, GLUCOSE, BUN, CREATININE, CA) 2024-02-25 10:52:00 Jose Carlos Urbina [facility] CREATINE KINASE 2024-02-25 10:52:00 Naty Mensah [facility] HEPATIC FUNCTION PANEL (8007 6) (ALB,T.PRO,BILI T,BU/BC,ALT,AST,ALK PHOS) 2024-02-25 10:52:00 Jose Carlos Urbina [facility] BASIC METABOLIC PANEL (NA, K , CL, CO2, GLUCOSE, BUN, CREATININE, CA) 2024-02-25 10:52:00 Jose Carlos Urbina [facility] MAGNESIUM 2024-02-24 09:54:00 Naty Mensah [facility] HEPATIC FUNCTION PANEL (8007 6) (ALB,T.PRO,BILI T,BU/BC,ALT,AST,ALK PHOS) 2024-02-24 09:54:00 Jose Carlos Urbina [facility] BASIC METABOLIC PANEL (NA, K , CL, CO2, GLUCOSE, BUN, CREATININE, CA) 2024-02-24 09:54:00 Jose Carlos Urbina [facility] CBC WITH DIFF 2024-02-24 09:54:00 Naty Mensah [facility] MAGNESIUM 2024-02-24 09:54:00 Naty Mensah [facility] HEPATIC FUNCTION PANEL (8007 6) (ALB,T.PRO,BILI T,BU/BC,ALT,AST,ALK PHOS) 2024-02-24 09:54:00 Jose Carlos Urbina [facility] BASIC METABOLIC PANEL (NA, K , CL, CO2, GLUCOSE, BUN, CREATININE, CA) 2024-02-24 09:54:00 Jose Carlos Urbina [facility] CBC WITH DIFF 2024-02-24 09:54:00 Naty Mensah [facility] POCT GLUCOSE (AUTOMATED) 2024-02-24 01:34:00 Hany Bo [facility] POCT GLUCOSE (AUTOMATED) 2024-02-24 01:34:00 Hany Bo [facility] HEPATIC FUNCTION PANEL (8007 6) (ALB,T.PRO,BILI T,BU/BC,ALT,AST,ALK PHOS) 2024-02-23 17:51:00 Chitra [facility] CBC WITH DIFF 2024-02-23 17:51:00 Chitra [facility] HAV ANTIBODY (IGG AND IGM) 2024-02-23 17:51:00 Chitra [facility] ENDOMYSIAL AB, IGA BY IFA 2024-02-23 17:51:00 Chitra [facility] VITAMIN D, 25-OH 2024-02-23 17:51:00 Chitra [facility] HEPATIC FUNCTION PANEL (8007 6) (ALB,T.PRO,BILI T,BU/BC,ALT,AST,ALK PHOS) 2024-02-23 17:51:00 Chitra [facility] CBC WITH DIFF 2024-02-23 17:51:00 Chitra [facility] HAV ANTIBODY (IGG AND IGM) 2024-02-23 17:51:00 Chitra [facility] ENDOMYSIAL AB, IGA BY IFA 2024-02-23 17:51:00 Chitra [facility] VITAMIN D, 25-OH 2024-02-23 17:51:00 Chitra [facility] INFLUENZA A/B RSV COVID NAAT 2024-02-22 20:12:00 Chitra [facility] LAB ONLY COVID INTERPRETATION 2024-02-22 20:12:00 Chitra [facility] INFLUENZA A/B RSV COVID NAAT 2024-02-22 20:12:00 Chitra [facility] LAB ONLY COVID INTERPRETATION 2024-02-22 20:12:00 Chitra [facility] XR CHEST 2 VW 2024-02-22 17:16:00 Wilkin, Adriana [facility] XR CHEST 2 VW 2024-02-22 17:16:00 [facility] 2024-02-22 16:59:52 Wilkin, Adriana [facility] US ABDOMEN LIMITED 2024-02-22 16:59:52 Wilkin, Adriana [facility] LIPASE 2024-02-22 15:19:00 Stephanie Lou [facility] TEST, SERUM 2024-02-22 15:19:00 Stephanie Lou [facility] C-REACTIVE PROTEIN 2024-02-22 15:19:00 Chitra [facility] TROPONIN I 2024-02-22 15:19:00 Stephanie Lou [facility] HEPATIC FUNCTION PANEL (8007 6) (ALB,T.PRO,BILI T,BU/BC,ALT,AST,ALK PHOS) 2024-02-22 15:19:[facility] MET[facility]OLIC PANEL (02466) 2024-02-22 15:19:00 Stephanie Lou [facility] URINE DRUG (IMMUNOASSAY) - COMPREHENSIVE DRUG SCREEN 2024-02-22 15:19:00 Chitra [facility] SEDIMENTATION RATE 2024-02-22 15:19:00 [facility] 2024-02-22 15:19:00 Stephanie Lou [facility] URINALYSIS 2024-02-22 15:19:00 Stephanie Lou [facility] HEPATITIS B SURFACE ANTIBODY 2024-02-22 15:19:00 Chitra [facility] HEPATITIS B SURFACE ANTIGEN 2024-02-22 15:19:00 Chitra [facility] HCV ANTIBODY 2024-02-22 15:19:00 Chitra [facility] HBC ANTIBODY (IGM & IGG) 2024-02-22 15:19:00 Chitra [facility] HIV 1/2 AG-AB WITH REFLEX 2024-02-22 15:19:00 [facility] GLIAD[facility] IGG 2024-02-22 15:19:00 [facility] 2024-02-22 15:19:00 Stephanie Lou [facility] TEST, SERUM 2024-02-22 15:19:00 Stephanie Lou [facility] C-REACTIVE PROTEIN 2024-02-22 15:19:00 Chitra [facility] TROPONIN I 2024-02-22 15:19:00 Stephanie Lou [facility] HEPATIC FUNCTION PANEL (8007 6) (ALB,T.PRO,BILI T,BU/BC,ALT,AST,ALK PHOS) 2024-02-22 15:19:00 Chitra [facility] COMP. METABOLIC PANEL ([id number]) 2024-02-22 15:19:00 Stephanie Lou [facility] URINE DRUG (IMMUNOASSAY) - COMPREHENSIVE DRUG SCREEN 2024-02-22 15:19:00 Chitra [facility] SEDIMENTATION RATE 2024-02-22 15:19:00 Chitra [facility] CBC WITH DIFF 2024-02-22 15:19:00 Stephanie Lou [facility] URINALYSIS 2024-02-22 15:19:00 Stephanie Lou [facility] HEPATITIS B SURFACE ANTIBODY 2024-02-22 15:19:00 [facility]FACE ANTIGEN 2024-02-22 15:19:00 Chitra [facility] HCV ANTIBODY 2024-02-22 15:19:00 Chitra [facility] HBC ANTIBODY (IGM & IGG) 2024-02-22 15:19:00 Chitra [facility] HIV 1/2 AG-AB WITH REFLEX 2024-02-22 15:19:00 Chitra [facility] DEAMIDATED GLIADIN IGG 2024-02-22 15:19:00 Naty Mensah [facility] COMP. METABOLIC PANEL (82600) 2023-05-19 17:22:00 Anna Marie Sellerszohra [facility] CT ABDOMEN PELVIS W CONTRAST 2023-05-19 15:59:54 Tod Sellers [facility] LIPASE 2023-05-19 15:43:00 [facility] CBC WITH DIFF 2023-05-19 15:43:00 Verito [facility] URINALYSIS 2023-05-19 15:32:00 Verito [facility] POCT TEST 2023-05-19 15:31:00 Verito [facility] CONSENT/REFUSAL FOR DIAGNOSI S AND TREATMENT 2023-05-19 14:37:15 Doctor Unassigned, [place] [facility] PHOSPHORUS 2023-01-15 08:15:00 Benita Rockwell [facility] MAGNESIUM 2023-01-15 08:15:00 Benita Rockwell [facility] BASIC METABOLIC PANEL (NA, K , CL, CO2, GLUCOSE, BUN, CREATININE, CA) 2023-01-15 08:15:00 Benita Rockwell [facility] CBC WITH DIFF 2023-01-15 08:15:00 Benita Rockwell [facility] PROTHROMBIN TIME / INR 2023-01-15 08:15:00 Benita Rockwell Daphnie [facility] MAGNESIUM 2023-01-14 10:14:00 Benita Rockwell [facility] PHOSPHORUS 2023-01-14 10:14:00 Benita Rockwell [facility] BASIC METABOLIC PANEL (NA, K , CL, CO2, GLUCOSE, BUN, CREATININE, CA) 2023-01-14 10:14:00 Benita Rockwell Daphnie [facility] CBC WITH DIFF 2023-01-14 10:14:00 Benita Rockwell [facility] PHOSPHORUS 2023-01-14 10:14:00 Hill, Benita [facility] MAGNESIUM 2023-01-14 10:14:00 Benita Rockwell [facility] BASIC METABOLIC PANEL (NA, K , CL, CO2, GLUCOSE, BUN, CREATININE, CA) 2023-01-14 10:14:00 Benita Rockwell [facility] CBC WITH DIFF 2023-01-14 10:14:00 Benita Rockwell [facility] CBC WITH DIFF 2023-01-13 10:45:00 Vaishnavi, [facility] BASIC METABOLIC PANEL (NA, K , CL, CO2, GLUCOSE, BUN, CREATININE, CA) 2023-01-13 10:45:00 Vaishnavi, [facility] MAGNESIUM 2023-01-13 10:45:00 Vaishnavi, [facility] PHOSPHORUS 2023-01-13 10:45:00 Vaishnavi, [facility] HEPATIC FUNCTION PANEL (8007 6) (ALB,T.PRO,BILI T,BU/BC,ALT,AST,ALK PHOS) 2023-01-13 10:45:00 Vaishnavi, [facility] PHOSPHORUS 2023-01-13 10:45:00 Vaishnavi, [facility] MAGNESIUM 2023-01-13 10:45:00 Vaishnavi, [facility] HEPATIC FUNCTION PANEL (8007 6) (ALB,T.PRO,BILI T,BU/BC,ALT,AST,ALK PHOS) 2023-01-13 10:45:00 Vaishnavi, [facility] BASIC METABOLIC PANEL (NA, K , CL, CO2, GLUCOSE, BUN, CREATININE, CA) 2023-01-13 10:45:00 Vaishnavi, [facility] CBC WITH DIFF 2023-01-13 10:45:00 Vaishnavi, [facility] GLUCOSE BODY FLUID 2023-01-12 20:44:00 Vaishnavi, [facility] BODY FLUID MANUAL DIFF 2023-01-12 20:44:00 Vaishnavi, [facility] T.PROTEIN BODY FLUID 2023-01-12 20:44:00 Vaishnavi, [facility] ASPIRATE OR ABSCESS CULTURE(AEROBIC/ANAEROBIC) 2023-01-12 20:44:00 Vaishnavi, [facility] LDH TOTAL BODY FLUID 2023-01-12 20:44:00 Vaishnavi, [facility] GLUCOSE BODY FLUID 2023-01-12 20:44:00 Vaishnavi, [facility] T.PROTEIN BODY FLUID 2023-01-12 20:44:00 Vaishnavi, [facility] BODY FLUID DIRECT COUNT 2023-01-12 20:44:00 Vaishnavi, [facility] ASPIRATE OR ABSCESS CULTURE(AEROBIC/ANAEROBIC) 2023-01-12 20:44:00 Vaishnavi, [facility] LDH TOTAL BODY FLUID 2023-01-12 20:44:00 Vaishnavi, [facility] PROTHROMBIN TIME / INR 2023-01-12 08:13:00 Vaishnavi, [facility] PROTHROMBIN TIME / INR 2023-01-12 08:13:00 Vaishnavi, [facility] COMP. METABOLIC PANEL (97807) 2023-01-12 03:49:00 Ciera García [facility] COMP. METABOLIC PANEL (95928) 2023-01-12 03:49:00 Ciera García [facility] CT ABDOMEN PELVIS W CONTRAST 2023-01-12 03:32:06 Ciera García [facility] CT ABDOMEN PELVIS W CONTRAST 2023-01-12 03:32:06 Ciera García [facility] POCT TEST 2023-01-12 03:02:00 Ciera García [facility] POCT TEST 2023-01-12 03:02:00 Ciera García Joana [facility] URINALYSIS 2023-01-12 02:56:00 Ciera García Joana [facility] LIPASE 2023-01-12 02:56:00 Ciera García [facility] TOTAL BETA HCG ASSAY 2023-01-12 02:56:00 Ciera García [facility] CBC WITH DIFF 2023-01-12 02:56:00 Ciera García [facility] EXTRA TUBE ORANGE 2023-01-12 02:56:00 Aroldo Siddiqui [facility] EXTRA TUBE LAV 2023-01-12 02:56:00 Aroldo Siddiqui [facility] LIPASE 2023-01-12 02:56:00 Ciera García [facility] TOTAL BETA HCG ASSAY 2023-01-12 02:56:00 Ciear García [facility] CBC WITH DIFF 2023-01-12 02:56:00 Ciera García Joana [facility] URINALYSIS 2023-01-12 02:56:00 Ciera García Jo[facility] EXTRA TUBE LAV 2023-01-12 02:56:00 Aroldo Siddiqui [facility] EXTRA TUBE ORANGE 2023-01-12 02:56:00 Aroldo Siddiqui [facility] CONSENT/REFUSAL FOR DIAGNOSI S AND TREATMENT 2023-01-12 01:46:10 Doctor Unassigned, [place] [facility] CONSENT/REFUSAL FOR DIAGNOSI S AND TREATMENT 2023-01-12 01:46:10 Doctor Unassigned, [place] [facility] ASSIGNMENT OF BENEFITS 2022-11-21 19:49:02 Doctor Unassigned, [place] [facility] ASSIGNMENT OF BENEFITS 2022-11-21 19:49:02 Doctor Unassigned, [place] [facility] CONSENT/REFUSAL FOR DIAGNOSI S AND TREATMENT 2022-11-21 18:03:25 Doctor Unassigned, [place] [facility] CONSENT/REFUSAL FOR DIAGNOSI S AND TREATMENT 2022-11-21 18:03:25 Doctor Unassigned, [place] [facility] EMERGENCY SERVICES AGREEMENT S AND AUTHORIZATIONS 2022-11-21 05:01:00 Doctor Unassigned, [place] [facility] CONSENT/REFUSAL FOR DIAGNOSI S AND TREATMENT 2022-09-05 13:42:02 Doctor Unassigned, [place] [facility] LIPASE 2022-07-31 23:13:00 Manju Newell [facility] TEST, SERUM 2022-07-31 23:13:00 Blane [facility] COMP. METABOLIC PANEL (80954) 2022-07-31 23:13:00 Blane [facility] CBC WITH DIFF 2022-07-31 23:13:00 Blane [facility] CONSENT/REFUSAL FOR DIAGNOSI S AND TREATMENT 2022-07-31 22:49:17 Doctor Unassigned, [place] [facility] XR ANKLE 3+ VW RIGHT 2022-07-15 16:00:00 Cari Kaur [facility] XR FOOT 3+ VW RIGHT 2022-07-15 16:00:00 Cari Kaur [facility] XR FOOT 3+ VW RIGHT 2022-07-15 16:00:00 Cari Kaur [facility] PATIENT FINANCIAL POLICY 2022-07-15 15:25:53 Doctor Unassigned, [place] [facility] POCT MOLECULAR STREP 2022-06-23 16:06:00 Unknown, Attending [facility] ASSIGNMENT OF BENEFITS 2022-06-23 15:18:28 Doctor Unassigned, [place] [facility] COMP. METABOLIC PANEL (06329) 2022-05-05 19:14:[facility]22-05-05 [facility]:14[facility]00 [facility] 2022-05-05 19:00[facility]05-05 18:58:[address] [facility] [facility] [address] [facility] PEL[facility] WO CONTRAST 2022-04-26 15:11:00 [facility] COMP. METABOLIC PANEL ([id number]) 2022-04-26 14:49:00 [facility] CBC WITH DIFF 2022-04-26 14:49:00 [facility] URINALYSIS 2022-04-26 14:49:00 [facility] POCT TEST 2022-04-26 14:45:00 [facility] CONSENT/REFUSAL FOR DIAGNOSI S AND TREATMENT 2022-04-26 14:22:29 Doctor Unassigned, [place] [facility] POCT TEST 2022-04-26 01:22:00 Zion Bridges [facility] ASSIGNMENT OF BENEFITS 2022-04-26 00:54:02 Doctor Unassigned, [place] [facility] URINALYSIS 2022-04-26 00:45:00 Zion Bridges [facility] CONSENT/REFUSAL FOR DIAGNOSI S AND TREATMENT 2022-04-26 00:16:47 Doctor Unassigned, [place] [facility] BASIC METABOLIC PANEL (NA, K , CL, CO2, GLUCOSE, BUN, CREATININE, CA) 2022-04-07 22:35:00 Olamide Garvin [facility] CBC WITH DIFF 2022-04-07 22:35:00 Olamide Garvin [facility] URINALYSIS 2022-04-07 21:36:00 Olamide Garvin [facility] URINE DRUG (IMMUNOASSAY) - COMPREHENSIVE DRUG SCREEN W/O REFLEX 2022-04-07 21:36:00 Olamide Garvin [facility] CONSENT/REFUSAL FOR DIAGNOSI S AND TREATMENT 2022-04-07 19:29:15 Doctor Unassigned, [place] [facility] POCT TEST 2022-03-24 14:07:00 Kellie Duncan [facility] CONSENT/REFUSAL FOR DIAGNOSI S AND TREATMENT 2022-03-24 13:27:20 Doctor Unassigned, [place] [facility] CT ABDOMEN PELVIS WO CONTRAST 2022-03-15 14:09:04 Anna Gould [facility] URINALYSIS 2022-03-15 13:53:00 Anna Gould [facility] POCT TEST 2022-03-15 13:52:00 Bryanna [facility] CONSENT/REFUSAL FOR DIAGNOSI S AND TREATMENT 2022-03-15 13:37:02 Doctor Unassigned, [place] [facility] POCT TEST 2022-03-11 14:59:00 Angelica Viveros [facility] FLU VACC (), 6 MO-6 4 YRS, .5ML, IM, QUAD (FLUCELVAX) 2022-02-27 13:34:55 Vijay Martinez [facility] NOTICE OF PRIVACY PRACTICES 2022-02-21 06:06:30 Doctor Unassigned, [place] [facility] CONSENT/REFUSAL FOR DIAGNOSI S AND TREATMENT 2022-02-21 06:03:41 Doctor Unassigned, [place] [facility] XR ANKLE <3 VW RIGHT 2022 17:56:42 Maggie Hamilton [facility] CT ABDOMEN PELVIS W CONTRAST 2022 17:44:17 Maggie Hamilton [facility] CT TRAUMA CERVICAL SPINE WO CONTRAST 2022 17:43:49 Maggie Hamilton [facility] POCT TEST 2022 17:27:00 Maggie Hamilton [facility] COMP. METABOLIC PANEL ([id number]) 2022 17:17:00 Maggie Hamilton [facility] CBC WITH DIFF 2022 17:17:00 Maggie Hamilton [facility] CONSENT/REFUSAL FOR DIAGNOSI S AND TREATMENT 2022 16:53:13 Doctor Unassigned, [place] [facility] US GALL BLADDER 2022-01-18 12:31:09 Bernardo Levy [facility] US PELVIS COMPLETE WITH TRANSVAGINAL 2022-01-18 12:21:13 Melvin Zhao [facility] CT ABDOMEN PELVIS W CONTRAST 2022-01-18 11:20:50 Melvin Zhao [facility] POCT TEST 2022-01-18 10:57:00 Jayy Kennedy [facility] COVID-19 (ID NOW RAPID TESTING) 10:57:00 Jayy Kennedy [facility] URINALYSIS 2022-01-18 10:47:00 Jayy Kennedy [facility] LIPASE 2022-01-18 10:29:00 Jayy Kennedy [facility] TEST, SERUM 2022-01-18 10:29:00 Jayy Kennedy [facility] HEPATIC FUNCTION PANEL (8007 6) (ALB,T.PRO,BILI T,BU/BC,ALT,AST,ALK PHOS) 2022-01-18 10:29:00 Jayy Kennedy [facility] BASIC METABOLIC PANEL (NA, K , CL, CO2, GLUCOSE, BUN, CREATININE, CA) 2022-01-18 10:29:00 Jayy Kennedy [facility] CBC WITH DIFF 2022-01-18 10:29:00 Jayy Kennedy [facility] CONSENT/REFUSAL FOR DIAGNOSI S AND TREATMENT 2022-01-18 10:13:31 Doctor Unassigned, [place] [facility] CT HEAD WO CONTRAST 2022-01-15 15:22:29 Maura Samayoa [facility] TEST, SERUM 2022-01-15 14:36:00 Maura Samayoa [facility] BASIC METABOLIC PANEL (NA, K , CL, CO2, GLUCOSE, BUN, CREATININE, CA) 2022-01-15 14:36:00 Maura Samayoa [facility] CBC WITH DIFF 2022-01-15 14:36:00 Maura Samayoa [facility] CONSENT/REFUSAL FOR DIAGNOSI S AND TREATMENT 2022-01-15 13:28:12 Doctor Unassigned, [place] [facility] XR CERVICAL SPINE 4 VW 2022-01-09 00:29:16 Gabriela [facility] XR LUMBAR SPINE 4 VW 2022-01-09 00:29:16 Gabriela [facility] XR SPINE THORACIC 3 VW 2022-01-09 00:29:16 Gabriela [facility] URINALYSIS 2022-01-08 23:50:00 Gabriela [facility] CONSENT/REFUSAL FOR DIAGNOSI S AND TREATMENT 2022-01-08 22:51:08 Doctor Unassigned, [place] [facility] GALV ONLY - VAGINAL PATHOGEN S BY NUCLEIC ACID TESTING 2021-12-12 18:37:00 Prasanna Vargas [facility] URINE CULTURE 2021-12-12 18:32:00 Prasanna Vargas [facility] POCT TEST 2021-12-12 18:31:00 Prasanna Vargas [facility] POCT URINALYSIS W/O SPECIFIC GRAVITY 2021-12-12 18:31:00 Prasanna Vargas [facility] Encounters Start Date/Time End Date/Time Encounter Type Admission Type Attending [facility] Care Facility Care Department Encounter ID Source 2021-03-14 03:14:31 [place] [id number] [facility] 2021-03-13 20:05:20 [id number] 2021-03-13 12:48:28 Emergency [facility] [id number] [facility] 2021-03-13 02:43:51 Emergency [facility] [id number] [facility] 2021-03-13 00:27:09 [id number] 2021-03-12 22:10:36 [id number] 2021-03-12 20:04:05 Emergency [facility] [id number] [facility] 2021-03-12 15:25:05 Emergency [facility] [id number] [facility] 2021-03-12 11:43:36 Emergency [facility] [id number] [facility] 2021-03-12 07:41:37 [id number] 2021-03-12 05:43:47 Emergency [facility] [id number] [facility] 2021-03-12 03:43:41 Emergency [facility] [id number] [facility] 2021-03-12 01:31:27 Emergency [facility] [id number] [facility] 2021-03-12 00:56:44 Emergency X [facility] [id number] [facility] 2021-03-12 00:56:31 Emergency [facility] [id number] [facility] 2021-03-11 17:47:02 Emergency [facility] [id number] [facility] 2021-03-11 16:27:15 Emergency [facility] [id number] [facility] 2021-03-11 12:00:58 Emergency [facility] [id number] [facility] 2021-03-11 10:33:59 Emergency [facility] [id number] [facility] 2021-03-11 01:36:52 Emergency [facility] [id number] [facility] 2021-03-10 23:35:34 Emergency [facility] [id number] [facility] 2021-03-10 19:06:16 Emergency [facility] [id number] [facility] 2021-03-10 12:39:47 Emergency [facility] [id number] [facility] 2021-03-10 06:54:04 [id number] 2021-03-09 13:25:44 Outpatient P [facility] [id number] [facility] 2021-03-09 13:08:01 Outpatient [facility] [id number] [facility] 2021-03-09 12:37:25 Outpatient [facility] [id number] [facility] 2021-03-09 11:51:20 Outpatient [facility] [id number] [facility] 2024-04-19 07:55:00 2024-04-19 09:58:00 Emergency X BERNARDO LEVY BRENT [facility] ERT [id number] [facility] 2024-04-19 07:55:00 2024-04-19 09:58:00 Emergency Bernardo Levy [facility] [id number] [facility] 2024-03-18 00:00:00 2024-04-18 18:19:35 Patient Secure Msg Doctor Unassigned, [place] Doctor Unassigned, [place] [facility] [id number] [facility] 2024-04-12 11:54:00 2024-04-12 14:39:00 Emergency T ARAM CLARK [facility] STR [id number] [facility] 2024-04-12 11:54:00 2024-04-12 14:39:00 Emergency Karma [facility] ([place]) [id number] [facility] 2024-04-12 09:23:00 2024-04-12 10:42:00 Emergency X MAGGIE HAMILTON SANDRA [facility] ERT [id number] [facility] 2024-04-12 09:23:00 2024-04-12 10:42:00 Emergency Olamide Garvin Sandra J [facility] [id number] [facility] 2024-03-10 09:43:00 2024-03-13 10:40:00 Inpatient X TAJ BARKER MICHAEL [facility] [id number] [facility] 2024-03-10 09:43:00 2024-03-13 10:40:00 Hospital Encounter Fidel, Alfredo Manuel, Ba Naik, Jose Gil, Taj Milner [facility] ([place] [id number] [facility] 2024-03-06 00:00:00 2024-03-06 08:40:48 Transition of Care Marlys Odell Antoinette [facility] [id number] [facility] 2024-03-04 06:46:00 2024-03-05 16:30:00 Outpatient X JOSE NAIK MYRNA [facility] [id number] [facility] 2024-03-04 06:46:00 2024-03-05 16:30:00 Emergency Jesus Muñoz Myrna [facility] ([place]) 1.2.840.114 350.1.13.10 4.2.7.2.686 [id number] [id number] [facility] 2024-03-03 00:00:00 2024-03-04 15:45:46 Patient Secure Toi Piedra [facility] ([facility]) 1.2.840.114 350.1.13.10 4.2.7.2.686 [id number] 071 [id number] [facility] 2024-03-03 00:00:00 2024-03-03 12:14:14 Telephone Giselle Vance [facility] ([place]) 1.2.840.114 350.1.13.10 4.2.7.2.686 [id number] 046 [id number] [facility] 2024-02-28 00:00:00 2024-02-28 09:08:41 Transition of Care Tc Renteria Michele A [facility] [address] 1.2.840.114 350.1.13.10 4.2.7.2.686 [id number] [facility] 2024-02-22 09:35:00 2024-02-27 16:59:00 Inpatient X HANY BO [facility] [id number] [facility] 2024-02-22 09:35:00 2024-02-27 16:59:00 Hospital Encounter Colin Jones Megan A [facility] ([place]) 1.2.840.114 350.1.13.10 4.2.7.2.686 [id number] 099 [id number] [facility] 2024-02-27 09:40:00 2024-02-27 10:51:00 Surgery Chitra Toi [facility] DG 1.2.840.114 350.1.13.10 4.2.7.2.686 [id number] [id number] [facility] 2024-02-27 09:22:00 2024-02-27 10:26:00 Anesthesia Event Peter Reece [facility] [employer]CA [employer] BLDG 1.2.840.114 350.1.13.10 4.2.7.2.686 [id number] [facility] 2024-02-24 00:00:00 2024-02-24 09:18:09 Telephone Naty Mensah [facility]AVILLION 1.2.840.114 350.1.13.10 4.2.7.2.686 [id number] [facility] 2023-09-12 00:00:00 2023-09-12 00:00:00 Outpatient R ROLDAN LIM [facility] [id number] [facility] 2023-08-26 00:00:00 2023-08-26 00:00:00 Transition of Care Marlys Odell 1.2.840.114 350.1.13.10 4.2.7.2.686 [id number] [facility] 2023-08-23 08:31:00 2023-08-24 13:25:00 Outpatient X ROLDAN LIM [facility] [place] [id number] [facility] 2023-05-19 09:04:00 2023-05-19 12:20:00 Emergency X TOD SELLERS [facility] ERT [id number] [facility] 2023-05-19 09:04:00 2023-05-19 12:20:00 Emergency Tod Sellers [facility] 1.2.840.114 350.1.13.10 4.2.7.2.686 [id number] 084 [id number] [facility] 2023-04-05 00:00:00 2023-04-05 00:00:00 Patient Secure Msg Prasanna Vargas [facility] PROFESSIO NAL BUILDING 1.2.840.114 350.1.13.10 4.2.7.2.686 [id number] [facility] 2023-01-16 00:00:00 2023-01-16 00:00:00 Transition of Care Marlys Odell 1.2.840.114 350.1.13.10 4.2.7.2.686 [id number] [facility] 2023-01-11 21:06:00 2023-01-15 16:00:00 Inpatient X OLIVER STEELE [facility] DAVID [id number] [facility] 2023-01-11 21:06:00 2023-01-15 16:00:00 Hospital Encounter Aroldo Siddiqui, Oliver Beltran [facility] 1.2.840.114 350.1.13.10 4.2.7.2.686 [id number] 091 [id number] [facility] 2023-01-12 00:00:00 2023-01-12 00:00:00 Travel 1.2.840.1 63092.1.1 3.104.2.7 .3.856942 .8 1.2.840.114 350.1.13.10 4.2.7.3.698 084.8 [id number] [facility] 2023-01-11 00:00:00 2023-01-11 00:00:00 Travel 1.2.840.1 35167.1.1 3.104.2.7 .3.624154 .8 1.2.840.114 350.1.13.10 4.2.7.3.698 084.8 [id number] [facility] 2022-12-12 09:30:00 2022-12-12 09:30:00 Outpatient PRASANNA LOOMIS [facility] [id number] [facility] 2022-11-21 13:08:00 2022-11-21 16:45:00 Emergency X MANJU NEWELL [facility] ERT [id number] [facility] 2022-11-21 13:08:00 2022-11-21 16:45:00 Emergency Zion Bridges Christopher 1.2.840.1 55832.1.1 3.104.2.7 .3.547877 .8 [id number] [facility] 2022-11-21 00:00:00 2022-11-21 00:00:00 Travel 1.2.840.1 47828.1.1 3.104.2.7 .3.941617 .8 1.2.840.114 350.1.13.10 4.2.7.3.698 084.8 [id number] [facility] 2022-11-15 09:40:00 2022-11-15 09:40:00 Outpatient LIAN LABOY CHRISTINE [facility] [id number] [facility] 2022-11-15 00:00:00 2022-11-15 00:00:00 Orders Only Palak Marrufo 1.2.840.1 11652.1.1 3.104.2.7 .3.104615 .8 [id number] [facility] 2022-11-06 13:00:00 2022-11-06 13:00:00 Outpatient VIJAY ARAUZ [facility] [id number] [facility] 2022-10-29 00:00:00 2022-10-29 00:00:00 Patient Secure Msg Lian Greene 1.2.840.1 92717.1.1 3.104.2.7 .3.215015 .8 [id number] [facility] 2022-10-29 00:00:00 2022-10-29 00:00:00 Patient Secure Msg Prasanna Vargas 1.2.840.1 02055.1.1 3.104.2.7 .3.239934 .8 [id number] [facility] 2022-10-03 00:00:00 2022-10-03 00:00:00 Letter (Out) Roldan [facility] 1.2.840.114 350.1.13.10 4.2.7.2.686 [id number] [id number] [facility] 2022-10-02 10:00:00 2022-10-02 10:00:00 Outpatient R CELINA FINNEY [facility] [id number] [facility] 2022-10-01 09:40:00 2022-10-01 09:40:00 Outpatient R REJI DÍAZ [facility] [id number] [facility] 2022-09-25 00:00:00 2022-09-25 00:00:00 Telephone Rad Serra [facility] PROFESSIO NAL BUILDING 1..840.114 350.1.13.10 4.2.7.2.686 [id number] 059 [id number] [facility] 2022-09-21 09:30:00 2022-09-21 09:30:00 Outpatient KASSANDRA MCKINLEY [facility] [id number] [facility] 2022-09-21 00:00:00 2022-09-21 00:00:00 Letter (Out) Kassandra Pugh [facility] 1.2.840.114 350.1.13.10 4.2.7.2.686 [id number] 092 [id number] [facility] 2022-09-21 00:00:00 2022-09-21 00:00:00 [facility] 1.2.840.114 350.1.13.10 4.2.7.2.686 [id number] 092 [id number] [facility] 2022-09-21 00:00:00 2022-09-21 00:00:00 [facility] 1.84.114 350.1.13.10 4.2.7.2.686 [id number] 092 [id number] [facility] 2022-09-14 09:30:00 2022-09-14 09:30:00 Out[facility] [id number] [facility] 2022-09-12 00:00:00 2022-09-12 00:00:00 Telephone Cristian [facility] 1.84.114 350.1.13.10 4.2.7.2.686 [id number] 092 [id number] [facility] 2022-09-07 11:30:00 2022-09-07 11:30:00 [facility] [id number] [facility] 2022-09-05 08:44:00 2022-09-05 13:15:00 Emergency X KENNEDY WHITLEY [facility] ERT [id number] [facility] 2022-09-05 08:44:00 2022-09-05 13:15:00 Emergency Kennedy Whitley [facility] 1.2840.114 350.1.13.10 4.2.7.2.686 [id number] 084 [id number] [facility] 2022-09-04 00:00:00 2022-09-04 00:00:00 Telephone Kassandra Pugh [facility] 1.2.840.114 350.1.13.10 4.2.7.2.686 [id number] 092 [id number] [facility] 2022-09-04 00:00:00 2022-09-04 00:00:00 Patient Secure Msg Rad Serra [facility] PROFESSIO NAL BUILDING 1.2.840.114 350.1.13.10 4.2.7.2.686 [id number] 059 [id number] [facility] 2022-08-29 09:00:00 2022-08-29 09:00:00 Outpatient R CELINA FINNEY [facility] [id number] [facility] 2022-08-14 00:00:00 2022-08-14 00:00:00 Patient Secure Msg Doctor Unassigned, [place] [facility] 1.2.840.114 350.1.13.10 4.2.7.2.686 [id number] 092 [id number] [facility] 2022-07-31 17:56:00 2022-07-31 20:30:00 Emergency X MANJU NEWELL [facility] ERT [id number] [facility] 2022-07-31 17:56:00 2022-07-31 20:30:00 Emergency [place], Manju [facility] 1..840.114 350.1.13.10 4.2.7.2.686 [id number] 084 [id number] [facility] 2022-07-15 09:46:45 2022-07-15 23:59:00 Outpatient R CARI KAUR [facility] [id number] [facility] 2022-07-15 09:46:45 2022-07-15 23:59:00 Hospital Encounter Cari Kaur [facility] 1.84.114 350.1.13.10 4.2.7.2.686 [id number] [facility] 2022-07-15 09:46:45 2022-07-15 23:59:00 Hospital Encounter Cari Kaur [facility] 1.84.114 350.1.13.10 4.2.7.2.686 [id number] [facility] 2022-07-15 09:20:00 2022-07-15 10:29:17 Urgent Care Cari Kaur Unknown, Attending [facility] 1.84.114 350.1.13.10 4.2.7.2.686 [id number] [facility] 2022-07-15 00:00:00 2022-07-15 00:00:00 Orders Only Doctor Unassigned, [place] [facility] 1.84.114 350.1.13.10 4.2.7.2.686 [id number] [facility] 2022-06-23 09:20:00 2022-06-23 10:27:39 Outpatient R PAUL SAMAYOA [facility] [id number] [facility] 2022-06-23 09:20:00 2022-06-23 10:27:39 Urgent Care Paul Samayoa Unknown, Attending [facility] 1.2.840.114 350.1.13.10 4.2.7.2.686 [id number] [facility] 2022-06-23 00:00:00 2022-06-23 00:00:00 Orders Only Doctor Unassigned, [place] [facility] 1.840.114 350.1.13.10 4.2.7.2.686 [id number] [facility] 2022-06-15 09:40:00 2022-06-15 09:40:00 Outpatient R LIAN GREENE [facility] [id number] [facility] 2022-05-29 08:00:00 2022-05-29 08:00:00 Outpatient KASSANDRA MCKINLEY [facility] [id number] [facility] 2022-05-15 09:20:00 2022-05-15 09:20:00 Outpatient R BENNETT MILLER [facility] [id number] [facility] 2022-05-11 09:30:00 2022-05-11 09:30:00 Outpatient KASSANDRA MCKINLEY [facility] [id number] [facility] 2022-05-05 12:26:00 2022-05-05 16:11:00 Emergency X KARON NORTON [facility] ERT [id number] [facility] 2022-05-05 12:26:00 2022-05-05 16:11:00 Emergency Karon Norton [facility] 1.840.114 350.1.13.10 4.2.7.2.686 [id number] [id number] [facility] 2022-05-01 00:00:00 2022-05-01 00:00:00 Outpatient R PRASANNA VARGAS VIEN [facility] [id number] [facility] 2022-04-26 08:30:00 2022-04-26 09:59:00 Emergency X ZION BRIDGES [facility] ERT [id number] [facility] 2022-04-26 08:30:00 2022-04-26 09:59:00 Emergency Zion Bridges [facility] 1.840.114 350.1.13.10 4.2.7.2.686 [id number] [id number] [facility] 2022-04-25 18:23:00 2022-04-25 21:55:00 Emergency X KENNEDY WHITLEY [facility] ERT [id number] [facility] 2022-04-25 18:23:00 2022-04-25 21:55:00 Emergency Kennedy Whitley [facility] 1.2840.114 350.1.13.10 4.2.7.2.686 [id number] [id number] [facility] 2022-04-19 10:00:00 2022-04-19 10:00:00 Outpatient LIAN LABOY [facility] [id number] [facility] 2022-04-12 00:00:00 2022-04-12 00:00:00 [facility] 1..840.114 350.1.13.10 4.2.7.2.686 [id number] [id number] [facility] 2022-04-11 00:00:00 2022-04-11 00:00:00 Telephone Darrion Wyatt [facility] 1..840.114 350.1.13.10 4.2.7.2.686 [id number] [id number] [facility] 2022-04-10 00:00:00 2022-04-10 00:00:00 Telephone [facility] 1.2840.114 350.1.13.10 4.2.7.2.686 [id number] [id number] [facility] 2022-04-09 09:30:00 2022-04-09 09:30:00 Office [facility] 1.2840.114 350.1.13.10 4.2.7.2.686 [id number] 092 [id number] [facility] 2022-04-09 09:30:00 2022-04-09 09:21:44 Outpatient R KASSANDRA PUGH [facility] [id number] [facility] 2022-04-07 13:41:00 2022-04-07 17:49:00 Emergency X OLAMIDE GARVIN [facility] ERT [id number] [facility] 2022-04-07 13:41:00 2022-04-07 17:49:00 Emergency Olamide Garvin G [facility] 1.84.114 350.1.13.10 4.2.7.2.686 [id number] [id number] [facility] 2022-04-07 00:00:00 2022-04-07 00:00:00 Patient Secure Msg Doctor Unassigned, [place] [facility] 1.114 350.1.13.10 4.2.7.2.686 [id number] [facility] 2022-04-04 00:00:00 2022-04-04 00:00:00 [facility] 1.840.114 350.1.13.10 4.2.7.2.686 [id number] 092 [id number] [facility] 2022-04-02 10:30:00 2022-04-02 10:30:00 Out[facility] [id number] [facility] 2022-03-28 00:00:00 2022-03-28 00:00:00 Patient Secure Msg Doctor Unassigned, [place] [facility] 1.840.114 350.1.13.10 4.2.7.2.686 [id number] 092 [id number] [facility] 2022-03-24 07:35:00 2022-03-24 13:11:00 Emergency X KELLIE DUNCAN [facility] ERT [id number] [facility] 2022-03-24 07:35:00 2022-03-24 13:11:00 Emergency Kellie Duncan E [facility] 1.2840.114 350.1.13.10 4.2.7.2.686 [id number] [id number] [facility] 2022-03-23 10:30:00 2022-03-23 10:30:00 Outpatient KASSANDRA MCKINLEY [facility] [id number] [facility] 2022-03-23 00:00:00 2022-03-23 00:00:00 Telephone Darrion Wyatt [facility] 1.2840.114 350.1.13.10 4.2.7.2.686 [id number] 092 [id number] [facility] 2022-03-22 00:00:00 2022-03-22 00:00:00 Telephone Darrion Wyatt [facility] 1.2840.114 350.1.13.10 4.2.7.2.686 [id number] [id number] [facility] 2022-03-22 00:00:00 2022-03-22 00:00:00 Refill Darrion Wyatt [facility] 1.2840.114 350.1.13.10 4.2.7.2.686 [id number] 092 [id number] [facility] 2022-03-21 00:00:00 2022-03-21 00:00:00 Telephone Darrion Wyatt [facility] 1.2840.114 350.1.13.10 4.2.7.2.686 [id number] 092 [id number] [facility] 2022-03-15 14:00:00 2022-03-15 14:36:19 [facility] [id number] [facility] 2022-03-15 14:00:00 2022-03-15 14:36:19 [facility] 1..840.114 350.1.13.10 4.2.7.2.686 [id number] [facility] 2022-03-15 08:40:00 2022-03-15 10:47:00 Emergency X ANNA GOULD [facility] ERT [id number] [facility] 2022-03-15 08:40:00 2022-03-15 10:47:00 Emergency Anna Gould [facility] 1..840.114 350.1.13.10 4.2.7.2.686 [id number] [facility] 2022-03-14 10:30:00 2022-03-14 10:30:00 Outpatient R PRASANNA VARGAS [facility] [id number] [facility] 2022-03-11 09:22:00 2022-03-11 12:15:00 Emergency X ROSEMARIEKAMILAH [facility] ERT [id number] [facility] 2022-03-11 09:22:00 2022-03-11 12:15:00 Emergency Rosemariekamilah Angelica [facility] 1..840.114 350.1.13.10 4.2.7.2.686 [id number] [facility] 2022-03-06 08:30:00 2022-03-06 08:30:00 Outpatient KASSANDRA MCKINLEY [facility] [id number] [facility] 2022-03-02 00:00:00 2022-03-02 00:00:00 Telephone Darrion Wyatt [facility] [place] [facility] 1..840.114 350.1.13.10 4.2.7.2.686 [id number] 092 [id number] [facility] 2022-02-28 00:00:00 2022-02-28 00:00:00 Patient Secure Msg Doctor Unassigned, [place] [facility] [place] [facility] 1.2.840.114 350.1.13.10 4.2.7.2.686 [id number] 092 [id number] [facility] 2022-02-27 09:30:00 2022-02-27 09:49:42 Outpatient KASSANDRA MCKINLEY [facility] [id number] [facility] 2022-02-27 09:30:00 2022-02-27 09:49:42 [facility] 1..840.114 350.1.13.10 4.2.7.2.686 [id number] [id number] [facility] 2022-02-27 08:00:00 2022-02-27 09:12:17 Office Visit Víctorkassandra Vijay [facility] 1..840.114 350.1.13.10 4.2.7.2.686 [id number] [id number] [facility] 2022-02-26 11:30:00 2022-02-26 11:30:00 Outpatient KASSANDRA MCKINLEY [facility] [id number] [facility] 2022-02-21 01:20:00 2022-02-21 03:44:00 Emergency MAGGIE MONTANEZ [facility] ERT [id number] [facility] 2022-02-21 01:20:00 2022-02-21 03:44:00 Emergency Maggie Hamilton [facility] 1..840.114 350.1.13.10 4.2.7.2.686 [id number] [facility] 2022-02-19 00:00:00 2022-02-19 00:00:00 Patient Secure Msg Kendal Zamudio [facility] 1.2840.114 350.1.13.10 4.2.7.2.686 [id number] [facility] 2022-02-19 00:00:00 2022-02-19 00:00:00 Patient Secure Msg Kendal Zamudio [facility] 1.2840.114 350.1.13.10 4.2.7.2.686 [id number] [id number] [facility] 2022-02-19 00:00:00 2022-02-19 00:00:00 Patient Secure Msg Ade Bradford [facility] 1.2840.114 350.1.13.10 4.2.7.2.686 [id number] [facility] 2022-02-19 00:00:00 2022-02-19 00:00:00 Patient Secure Msg Martin Ross Farzana [facility] 1.2840.114 350.1.13.10 4.2.7.2.686 [id number] [facility] 2022 11:58:00 2022 15:13:00 Emergency X MAGGIE HAMILTON [facility] ERT [id number] [facility] 2022 11:58:00 2022 15:13:00 Emergency Maggie Hamilton [facility] 1.2840.114 350.1.13.10 4.2.7.2.686 [id number] [id number] [facility] 2022-02-09 09:00:00 2022-02-09 09:00:00 Outpatient R CRICKET TAYLOR [facility] [id number] [facility] 2022-02-06 10:00:00 2022-02-06 10:00:00 Outpatient VIJAY ARAUZ [facility] [id number] [facility] 2022-02-05 09:45:00 2022-02-05 10:05:00 Nurse Visit Nurse, [facility] Ileana Med[facility] 1..840.114 350.1.13.10 4.2.7.2.686 [id number] [facility] 2022-02-05 09:20:00 2022-02-05 09:20:00 Outpatient FLACO KEE [facility] [id number] [facility] 2022-01-26 00:00:00 2022-01-26 00:00:00 Case Management Prasanna Vargas [facility] 1..840.114 350.1.13.10 4.2.7.2.686 [id number] [facility] 2022-01-22 11:00:00 2022-01-22 11:00:00 Outpatient VIJAY ARAUZ [facility] [id number] [facility] 2022-01-19 00:00:00 2022-01-19 00:00:00 Patient Secure Msg Doctor Unassigned, [place] [facility] 1..840.114 350.1.13.10 4.2.7.2.686 [id number] [facility] 2022-01-18 05:17:00 2022-01-18 10:25:00 Emergency X BERNARDO LEVY [facility] ERT [id number] [facility] 2022-01-18 05:17:00 2022-01-18 10:25:00 Emergency Jayy Kennedy [facility] 1.2.840.114 350.1.13.10 4.2.7.2.686 [id number] [facility] 2022-01-15 08:34:00 2022-01-15 10:49:00 Emergency X MAURA SAMAYOA [facility] ERT [id number] [facility] 2022-01-15 08:34:00 2022-01-15 10:49:00 Emergency Larry Perez Maura Samayoa [facility] 1..840.114 350.1.13.10 4.2.7.2.686 [id number] [facility] 2022-01-08 18:04:00 2022-01-08 20:09:00 [facility] [id number] 2022-01-08 18:04:00 2022-01-08 20:09:00 Emergency Humberto Ochoa [facility] 1..840.114 350.1.13.10 4.2.7.2.686 [id number] [facility] 2021-12-12 13:30:00 2021-12-12 13:40:21 Outpatient Farzana CARNES [facility] [id number] [facility] 2021-12-12 13:30:00 2021-12-12 13:40:21 Office Visit Prasanna Vargas [facility] 1..840.114 350.1.13.10 4.2.7.2.686 [id number] [facility] 2021-12-12 13:30:00 2021-12-12 13:40:21 Outpatient TETO BRANTLEY [facility] [id number] [facility] 2021-12-12 13:30:00 2021-12-12 13:40:21 Outpatient TETO BRANTLEY [facility] [id number] [facility] 2021-12-11 16:15:00 2021-12-11 16:15:00 Outpatient Farzana BRADFORDADE [facility] [id number] [facility] 2021-12-05 14:15:00 2021-12-05 14:15:00 Outpatient ROMULO BROWNING [facility] [id number] [facility] 2021-11-28 08:49:00 2021-11-28 11:02:00 Emergency X KARON NORTON [facility] ERT [id number] [facility] 2021-11-28 08:49:00 2021-11-28 11:02:00 Emergency Karon Norton [facility] 1.2.840.114 350.1.13.10 4.2.7.2.686 [id number] [facility] 2021-11-28 00:00:00 2021-11-28 00:00:00 Patient Secure Msg Cricket Taylor [facility] COMMUNICATION[employer] [facility]JECT LEAD [facility] 1.2840.114 350.1.13.10 4.2.7.2.686 [id number] [facility] 2021-11-24 18:14:00 2021-11-24 21:04:00 Emergency X Kaycee MÉNDEZ [facility] ERT [id number] [facility] 2021-11-24 18:14:00 2021-11-24 21:04:00 Emergency Kaycee Méndez [facility] 1.2840.114 350.1.13.10 4.2.7.2.686 [id number] [facility] 2021-11-24 00:00:00 2021-11-24 00:00:00 Telephone Cricket Taylor [facility] [employer] LEAD [facility] & [facility]ILD [facility] 1.2840.114 350.1.13.10 4.2.7.2.686 [id number] [facility] 2021-11-20 00:00:00 2021-11-20 00:00:00 Patient Secure Kendal Medrano [facility] [facility] 1.2.840.114 350.1.13.10 4.2.7.2.686 [id number] [facility] 2021-11-19 00:00:00 2021-11-19 00:00:00 Letter (Out) Leslie Santacruz [facility] 1.2.840.114 350.1.13.10 4.2.7.2.686 [id number] [facility] 2021-11-18 10:41:40 2021-11-18 23:59:[address] [facility] [id number] [facility] 2021-11-18 10:41:40 2021-11-18 23:59:00 [facility] 1.2.840.114 350.1.13.10 4.2.7.2.686 [id number] [facility] 2021-11-18 10:20:00 2021-11-18 10:53:20 Urgent Care Oliver [facility] TOÑO?[facility] MED[facility] OFF[facility] BUILDING 1.2.840.114 350.1.13.10 4.2.7.2.686 [id number] [facility] 2021-11-09 10:30:00 2021-11-09 10:30:00 Outpatient CELINA STONE [facility] [id number] [facility] 2021-10-25 13:20:00 2021-10-25 13:20:00 [facility] 1.2.840.114 350.1.13.10 4.2.7.2.686 [id number] [facility] 2021-10-25 13:20:00 2021-10-25 12:47:59 Outpatient ILEANA CASE [facility] [id number] [facility] 2021-10-25 00:00:00 2021-10-25 00:00:00 Patient Secure Msg Vijay [facility] MED[facility] OFF[facility] BU[facility] 1.2.840.114 350.1.13.10 4.2.7.2.686 [id number] [facility] 2021-10-25 00:00:00 2021-10-25 00:00:00 Telephone Vijay [facility] 1.2.840.114 350.1.13.10 4.2.7.2.686 [id number] [facility] 2021-10-25 00:00:00 2021-10-25 00:00:00 Telephone Provider, Filippo Shirley [facility] 1.2.840.114 350.1.13.10 4.2.7.2.686 [id number] [facility] 2021-10-25 00:00:00 2021-10-25 00:00:00 Telephone Nurse, Filippo Shirley [facility] 1.2.840.114 350.1.13.10 4.2.7.2.686 [id number] [facility] 2021-10-24 10:15:00 2021-10-24 10:15:00 Outpatient ROMULO BROWNING [facility] [id number] [facility] 2021-10-24 10:15:00 2021-10-24 10:15:00 Outpatient ROMULO BROWNING [facility] [id number] [facility] 2021-10-11 09:30:00 2021-10-11 09:30:00 Outpatient ROMULO BROWNING [facility] [id number] [facility] 2021-10-10 13:30:00 2021-10-10 13:30:00 Outpatient PRASANNA LOOMIS [facility] [id number] [facility] 2021-10-10 13:30:00 2021-10-10 13:30:00 Outpatient R PRASANNA VARGAS [facility] [id number] [facility] 2021-10-10 13:30:00 2021-10-10 13:30:00 Outpatient R PRASANNA VARGAS [facility] [id number] [facility] 2021-10-10 13:30:00 2021-10-10 13:30:00 Outpatient PRASANNA LOOMIS [facility] [id number] [facility] 2021-10-10 13:30:00 2021-10-10 13:30:00 Outpatient R PRASANNA VARGAS [facility] [id number] [facility] 2021-10-10 13:30:00 2021-10-10 13:30:00 Outpatient R PRASANNA VARGAS [facility] [id number] [facility] 2021-10-10 13:30:00 2021-10-10 13:30:00 Outpatient R PRASANNA VARGAS [facility] [id number] [facility] 2021-10-05 00:00:00 2021-10-05 00:00:00 Patient Secure Msg [facility] 1.2.840.114 350.1.13.10 4.2.7.2.686 [id number] [facility] 2021-10-05 00:00:00 2021-10-05 00:00:00 Patient Secure Msg Kendal Zamudio [facility] 1.2.840.114 350.1.13.10 4.2.7.2.686 [id number] 044 [id number] [facility] 2021-10-04 00:00:00 2021-10-04 00:00:00 Pre Visit Outreach Melia Rodriguez 1.2.840.114 350.1.13.10 4.2.7.2.686 [id number] [facility] 2021-09-28 13:30:00 2021-09-28 13:45:00 Office Visit Celina Mixon [facility] INDU MELO 1.2.840.114 350.1.13.10 4.2.7.2.686 [id number] [facility] 2021-09-28 13:30:00 2021-09-28 13:30:00 Outpatient CELINA STONE [facility] [id number] [facility] 2021-09-28 13:30:00 2021-09-28 13:30:00 Outpatient CELINA STONE [facility] [id number] [facility] 2021-09-28 00:00:00 2021-09-28 00:00:00 Patient Secure Msg Celina Mixon [facility] 1.2.840.114 350.1.13.10 4.2.7.2.686 [id number] [facility] 2021-09-27 14:00:00 2021-09-27 14:00:00 Outpatient TETO BRANTLEY [facility] [id number] [facility] 2021-09-27 09:30:00 2021-09-27 09:30:00 Outpatient DANIA RICARDO [facility] [id number] [facility] 2021-09-27 09:30:00 2021-09-27 09:30:00 Outpatient JORGE LUIS RICARDOIG [facility] [id number] [facility] 2021-09-27 09:30:00 2021-09-27 09:30:00 Outpatient R DANIA PENNINGTON [facility] [id number] [facility] 2021-09-26 10:45:00 2021-09-26 10:45:00 Outpatient R CRICKET TAYLOR [facility] [id number] [facility] 2021-09-26 10:45:00 2021-09-26 10:45:00 Outpatient R CRICKET TAYLOR [facility] [id number] [facility] 2021-09-26 00:00:00 2021-09-26 00:00:00 Patient Secure Vijay Caraballo [facility] TO[facility] 1.2.840.114 350.1.13.10 4.2.7.2.686 [id number] [id number] [facility] 2021-09-26 00:00:00 2021-09-26 00:00:00 Patient Secure Vijay Caraballo [facility] TO[facility] 1.2.840.114 350.1.13.10 4.2.7.2.686 [id number] [facility] 2021-09-25 10:20:00 2021-09-25 11:10:42 Urgent Care Flaco Boyd Amanda [facility] 1.2.840.114 350.1.13.10 4.2.7.2.686 [id number] [facility] 2021-09-25 10:20:00 2021-09-25 11:10:42 Outpatient FLACO KEE [facility] [id number] [facility] 2021-09-25 10:20:00 2021-09-25 10:20:00 Outpatient R FLACO BOYD [facility] [id number] [facility] 2021-09-25 10:00:00 2021-09-25 10:00:00 Outpatient R PRASANNA VARGAS [facility] [id number] [facility] 2021-09-25 00:00:00 2021-09-25 00:00:00 [facility] BU[facility] 1.2840.114 350.1.13.10 4.2.7.2.686 [id number] [facility] 2021-09-25 00:00:00 2021-09-25 00:00:00 Patient Secure Mslaila VargasPrasanna Jm [facility] 1.2840.114 350.1.13.10 4.2.7.2.686 [id number] [facility] 2021-09-25 00:00:00 2021-09-25 00:00:00 Telephone Cricket Taylor [facility] COMMUNICATIONS PROJECT LEAD [facility] 1.20.114 350.1.13.10 4.2.7.2.686 [id number] [facility] 2021-09-25 00:00:00 2021-09-25 00:00:00 Telephone Celina Mixon [facility] 1.2840.114 350.1.13.10 4.2.7.2.686 [id number] [facility] 2021-09-15 00:00:00 2021-09-15 00:00:00 Patient Secure Kendal Zamudio [facility] 1.284.114 350.1.13.10 4.2.7.2.686 [id number] [id number] [facility] 2021-09-15 00:00:00 2021-09-15 00:00:00 Patient Secure Msg Kendal Zamudio [facility] BU[facility] 1.2.114 350.1.13.10 4.2.7.2.686 [id number] [id number] [facility] 2021-09-15 00:00:00 2021-09-15 00:00:00 Patient Secure Msg Kendal Zamudio [facility] BU[facility] 1.2.114 350.1.13.10 4.2.7.2.686 [id number] [id number] [facility] 2021-09-14 00:00:00 2021-09-14 00:00:00 Patient Secure Msg Vijay Martinez [facility] TO[facility] 1.114 350.1.13.10 4.2.7.2.686 [id number] [id number] [facility] 2021-09-14 00:00:00 2021-09-14 00:00:00 Patient Secure Msg Doctor Unassigned, [place] [facility] 1.114 350.1.13.10 4.2.7.2.686 [id number] 044 [id number] [facility] 2021-09-12 10:30:00 2021-09-12 10:30:00 Outpatient CELINA STONE [facility] [id number] [facility] 2021-09-12 10:30:00 2021-09-12 10:30:00 Outpatient CELINA [facility]ONE [facility] [id number] [facility] 2021-09-12 00:00:00 2021-09-12 00:00:00 Patient Secure Msg Taj Dsouza [facility] 1.114 350.1.13.10 4.2.7.2.686 [id number] [facility] 2021-09-12 00:00:00 2021-09-12 00:00:00 Orders Only Doctor Unassigned, [place] [facility] 1.2.840.114 350.1.13.10 4.2.7.2.686 [id number] [facility] 2021-09-12 00:00:00 2021-09-12 00:00:00 Patient Secure Msg Juan [facility] TOÑO?[facility] MED[facility] OFF[facility] BUILDING 1.2840.114 350.1.13.10 4.2.7.2.686 [id number] [id number] [facility] 2021-09-05 00:00:00 2021-09-05 00:00:00 Patient [facility] 1.2840.114 350.1.13.10 4.2.7.2.686 [id number] [id number] [facility] 2021-09-05 00:00:00 2021-09-05 00:00:00 Patient Secure Msg Doctor Unassigned, [place] [facility] 1.2.840.114 350.1.13.10 4.2.7.2.686 [id number] [facility] 2021-09-05 00:00:00 2021-09-05 00:00:00 Patient Secure Msg Doctor Unassigned, [place] [facility] 1.2840.114 350.1.13.10 4.2.7.2.686 [id number] [facility] 2021-09-04 00:00:00 2021-09-04 00:00:00 Patient Secure Msg [facility] BU[facility] 1.2840.114 350.1.13.10 4.2.7.2.686 [id number] [id number] [facility] 2021-08-28 00:00:00 2021-08-28 00:00:00 Patient Secure Msg Harsh Charles [facility] 1.20.114 350.1.13.10 4.2.7.2.686 [id number] [facility] 2021-08-25 00:00:00 2021-08-25 00:00:00 Telephone Dania Pennington [facility] MED[facility] OFF[facility] BUILDING 1.20.114 350.1.13.10 4.2.7.2.686 [id number] [facility] 2021-08-25 00:00:00 2021-08-25 00:00:00 Patient Secure Msg Vijay Martinez [facility] BU[facility] 1.20.114 350.1.13.10 4.2.7.2.686 [id number] 044 [id number] [facility] 2021-08-24 00:00:00 2021-08-24 00:00:00 Telephone Vijay Martinez [facility] 1.2840.114 350.1.13.10 4.2.7.2.686 [id number] [facility] 2021-08-24 00:00:00 2021-08-24 00:00:00 Patient Secure Msg Vijay Martinez [facility] BU[facility] 1.2840.114 350.1.13.10 4.2.7.2.686 [id number] [facility] 2021-08-23 00:00:00 2021-08-23 00:00:00 Patient Secure Msg Vijay Martinez [facility] 1.2840.114 350.1.13.10 4.2.7.2.686 [id number] [facility] 2021-08-23 00:00:00 2021-08-23 00:00:00 Telephone Vijay Martinez [facility] OFF[facility] BUILD[facility] 1.84.114 350.1.13.10 4.2.7.2.686 [id number] [id number] [facility] 2021-08-22 00:00:00 2021-08-22 00:00:00 Telephone Vijay Martinez [facility] BUILD[facility] 1.84.114 350.1.13.10 4.2.7.2.686 [id number] [id number] [facility] 2021-08-22 00:00:00 2021-08-22 00:00:00 Patient Secure Msg Hallie Wilkinson [facility] TO[facility] OFFICE BUILD[facility] 1.840.114 350.1.13.10 4.2.7.2.686 [id number] [id number] [facility] 2021-08-18 00:00:00 2021-08-18 00:00:00 Telephone Vijay Martinez [facility] MED[facility] OFF[facility] BUILDING 1.84.114 350.1.13.10 4.2.7.2.686 [id number] [id number] [facility] 2021-08-17 09:00:00 2021-08-17 09:00:00 Outpatient CELINA [facility]ONE [facility] [id number] [facility] 2021-08-17 09:00:00 2021-08-17 09:00:00 Outpatient CELINA [facility]ONE [facility] [id number] [facility] 2021-08-17 00:00:00 2021-08-17 00:00:00 Patient Secure Msg Prasanna Vargas [facility] NAL BUILDING 1.840.114 350.1.13.10 4.2.7.2.686 [id number] [facility] 2021-08-17 00:00:00 2021-08-17 00:00:00 Patient Secure Msg Vijay Martinez [facility] 1.2840.114 350.1.13.10 4.2.7.2.686 [id number] [facility] 2021-08-17 00:00:00 2021-08-17 00:00:00 Patient Secure Msg Vijay Martinez [facility] 1.84.114 350.1.13.10 4.2.7.2.686 [id number] 044 [id number] [facility] 2021-08-16 00:00:00 2021-08-16 00:00:00 Patient Secure Msg Vijay Martinez [facility] 1.84.114 350.1.13.10 4.2.7.2.686 [id number] 044 [id number] [facility] 2021-08-16 00:00:00 2021-08-16 00:00:00 Patient Secure Msg Doctor Unassigned, [place] [facility] 1.84.114 350.1.13.10 4.2.7.2.686 [id number] 044 [id number] [facility] 2021-08-16 00:00:00 2021-08-16 00:00:00 Patient Secure Msg Vijay Martinez [facility] 1.284.114 350.1.13.10 4.2.7.2.686 [id number] [id number] [facility] 2021-08-16 00:00:00 2021-08-16 00:00:00 Patient Secure Msg Vijay Martinez [facility] 1.2.840.114 350.1.13.10 4.2.7.2.686 [id number] [id number] [facility] 2021-08-15 15:30:00 2021-08-15 16:16:42 Office Visit Adán Kim [facility] 1.2.840.114 350.1.13.10 4.2.7.2.686 [id number] [facility] 2021-08-15 15:30:00 2021-08-15 16:16:42 Outpatient R ADÁN KIM [facility] [id number] [facility] 2021-08-15 15:30:00 2021-08-15 15:30:00 Outpatient ADÁN DIEGO [facility] [id number] [facility] 2021-08-15 15:30:00 2021-08-15 15:30:00 Outpatient R ADÁN KIM [facility] [id number] [facility] 2021-08-15 15:30:00 2021-08-15 15:30:00 Outpatient ADÁN DIEGO [facility] [id number] [facility] 2021-08-15 09:27:00 2021-08-15 12:26:00 Emergency MAURA DALE [facility] ERT [id number] [facility] 2021-08-15 09:27:00 2021-08-15 12:26:00 Emergency Maura Samayoa [facility] 1..840.114 350.1.13.10 4.2.7.2.686 [id number] [facility] 2021-08-15 09:27:00 2021-08-15 12:26:00 Emergency MAURA DALE [facility] ERT [id number] [facility] 2021-08-15 00:00:00 2021-08-15 00:00:00 Patient Secure Msg Doctor Unassigned, [place] [facility] 1.84.114 350.1.13.10 4.2.7.2.686 [id number] [facility] 2021-08-14 13:25:00 2021-08-14 23:59:00 Outpatient R VIJAY MARTINEZ [facility] [id number] [facility] 2021-08-14 13:25:00 2021-08-14 23:59:00 Outpatient R VIJAY MARTINEZ [facility] [id number] [facility] 2021-08-14 13:25:00 2021-08-14 13:25:00 Outpatient R VIJAY MARTINEZ [facility] [id number] [facility] 2021-08-14 12:19:07 2021-08-14 13:24:00 Outpatient R VIJAY MARTINEZ [facility] [id number] [facility] 2021-08-14 12:19:07 2021-08-14 13:24:00 Outpatient R VIJAY MARTINEZ [facility] [id number] [facility] 2021-08-14 12:30:00 2021-08-14 13:01:24 Acid Changer Visit Lab, [facility]ilippo [facility] 1.840.114 350.1.13.10 4.2.7.2.686 [id number] [facility] 2021-08-14 12:30:00 2021-08-14 12:45:00 Acid Changer Visit Lab, Filippo Martinez Count includes the [facility] 1.840.114 350.1.13.10 4.2.7.2.686 [id number] [facility] 2021-08-14 11:30:00 2021-08-14 12:31:12 Office Visit [facility] 1.84114 350.1.13.10 4.2.7.2.686 [id number] [facility] 2021-08-14 11:30:00 2021-08-14 12:31:12 Outpatient R VIJAY MARTINEZ [facility] [id number] [facility] 2021-08-14 00:00:00 2021-08-14 00:00:00 Patient Secure [facility] OFF[facility] BUILD[facility] 1.84114 350.1.13.10 4.2.7.2.686 [id number] [id number] [facility] 2021-08-14 00:00:00 2021-08-14 00:00:00 Patient Secure Msg [facility] BUILD[facility] 1.84.114 350.1.13.10 4.2.7.2.686 [id number] [facility] 2021-08-09 14:45:00 2021-08-09 14:45:00 Outpatient R ADÁN KIM [facility] [id number] [facility] 2021-08-09 00:00:00 2021-08-09 00:00:00 Telephone Vijay [facility] BU[facility] 1.84.114 350.1.13.10 4.2.7.2.686 [id number] [facility] 2021-08-08 11:30:00 2021-08-08 23:59:00 Outpatient R VÍCTORVIJAY Cannon [facility] [id number] [facility] 2021-08-08 11:30:00 2021-08-08 23:59:00 Hospital Encounter Vijay Martinez [facility] BUILD[facility] 1.84.114 350.1.13.10 4.2.7.2.686 [id number] [facility] 2021-08-08 11:15:00 2021-08-08 11:15:00 Outpatient R VIJAY MARTINEZ [facility] [id number] [facility] 2021-08-08 11:00:00 2021-08-08 11:00:00 Outpatient R JUAN VIJAY [facility] [id number] [facility] 2021-08-08 00:00:00 2021-08-08 00:00:00 Patient Secure Msg Doctor Unassigned, [place] [facility] 1.840.114 350.1.13.10 4.2.7.2.686 [id number] [facility] 2021-08-07 09:30:00 2021-08-07 10:23:21 Office Visit Vijay Martinez [facility] OFF[facility] BUILD[facility] 1.840.114 350.1.13.10 4.2.7.2.686 [id number] [facility] 2021-08-07 09:30:00 2021-08-07 10:23:21 Outpatient R VIJAY MARTINEZ [facility] [id number] [facility] 2021-08-07 09:30:00 2021-08-07 09:30:00 Outpatient R VIJAY MARTINEZ [facility] [id number] [facility] 2021-08-07 00:00:00 2021-08-07 00:00:00 Patient Secure Msg Juan Vijay [facility] OFF[facility] 1.840.114 350.1.13.10 4.2.7.2.686 [id number] [facility] 2021-08-07 00:00:00 2021-08-07 00:00:00 Patient Secure Msg Vijay Martinez [facility] 1.840.114 350.1.13.10 4.2.7.2.686 [id number] [facility] 2021-08-07 00:00:00 2021-08-07 00:00:00 Patient Secure Celina Zheng [facility] 1.840.114 350.1.13.10 4.2.7.2.686 [id number] [facility] 2021-08-04 10:00:00 2021-08-04 10:00:00 Outpatient R SHADIA [facility]RA [facility] [id number] [facility] 2021-08-04 00:00:00 2021-08-04 00:00:00 Patient Secure Vijay Caraballo [facility] 1.84.114 350.1.13.10 4.2.7.2.686 [id number] [id number] [facility] 2021-08-03 11:00:00 2021-08-03 12:48:43 Office Visit Jayy Diaz [employer] [facility]. ..840.114 350.1.13.10 4.2.7.2.686 [id number] [facility] 2021-08-03 11:00:00 2021-08-03 12:48:43 Outpatient R JAYY DIAZ [facility] [id number] [facility] 2021-08-03 11:00:00 2021-08-03 11:00:00 Outpatient R JAYY DIAZ [facility] [id number] [facility] 2021-08-03 00:00:00 2021-08-03 00:00:00 Patient Secure Celina Zheng [facility] 1.840.114 350.1.13.10 4.2.7.2.686 [id number] [facility] 2021-08-02 00:00:00 2021-08-02 00:00:00 Telephone Vijay Martinez [facility] 1.2.840.114 350.1.13.10 4.2.7.2.686 [id number] [facility] 2021-07-21 08:00:00 2021-07-21 08:52:53 Outpatient DARRION QUIROZ [facility] [id number] [facility] 2021-07-17 11:30:00 2021-07-17 11:30:00 Outpatient VIJAY ARAUZ [facility] [id number] [facility] 2021-07-17 00:00:00 2021-07-17 00:00:00 Patient Secure Msg VíctorVijay canonn [facility] 1.2.840.114 350.1.13.10 4.2.7.2.686 [id number] [facility] 2021-06-19 00:00:00 2021-06-19 00:00:00 Telephone Vijay Martinez [facility] 1.2.840.114 350.1.13.10 4.2.7.2.686 [id number] [facility] 2021-06-09 00:00:00 2021-06-09 00:00:00 Telephone [facility] 1.2.840.114 350.1.13.10 4.2.7.2.686 [id number] [facility] 2021-06-06 11:15:00 2021-06-06 11:15:00 Outpatient TETO BRANTLEY [facility] [id number] [facility] 2021-06-06 11:15:00 2021-06-06 11:15:00 Outpatient Farzana CARNES [facility] [id number] [facility] 2021-06-02 15:45:00 2021-06-02 15:45:00 Outpatient R CRISTINACLAUDETTE SINGH [facility] [id number] [facility] 2021-05-31 10:00:00 2021-05-31 10:46:31 Outpatient R VÍCTORVIJAY Cannon [facility] [id number] [facility] 2021-05-31 10:00:00 2021-05-31 10:46:31 [facility] Visit [facility] 1..840.114 350.1.13.10 4.2.7.2.686 [id number] [facility] 2021-05-31 10:00:00 2021-05-31 10:46:31 Outpatient R JUAN VIJAY [facility] [id number] [facility] 2021-05-31 00:00:00 2021-05-31 00:00:00 Orders Only Doctor Unassigned, [place] [facility] 1.840.114 350.1.13.10 4.2.7.2.686 [id number] [facility] 2021-05-26 00:00:00 2021-05-26 00:00:00 Telephone Skylar Groves [facility] 1..840.114 350.1.13.10 4.2.7.2.686 [id number] [facility] 2021-05-26 00:00:00 2021-05-26 00:00:00 Patient Secure Msg Prasanna Vargas [facility] PROFESSIO NAL BUILDING 1.2.840.114 350.1.13.10 4.2.7.2.686 [id number] [facility] 2021-05-25 14:00:00 2021-05-25 14:30:00 Telemedici ne Visit Skylar Groves [facility] 1.2.840.114 350.1.13.10 4.2.7.2.686 [id number] 044 [id number] [facility] 2021-05-25 14:00:00 2021-05-25 14:00:00 Outpatient R SKYLAR GROVES [facility] [id number] [facility] 2021-05-25 14:00:00 2021-05-25 14:00:00 Outpatient R SKYLAR GROVES [facility] [id number] [facility] 2021-05-25 00:00:00 2021-05-25 00:00:00 Patient Secure Msg Skylar Groves [facility] MEDICAL OFFICE BUILDING 1.2.840.114 350.1.13.10 4.2.7.2.686 [id number] [id number] [facility] 2021-05-25 00:00:00 2021-05-25 00:00:00 Patient Secure Msg Skylar Groves [facility] 1.2.840.114 350.1.13.10 4.2.7.2.686 [id number] 044 [id number] [facility] 2021-05-24 00:00:00 2021-05-24 00:00:00 Telephone Rad Serra K.HPilar [facility] BU[facility] 1.2.840.114 350.1.13.10 4.2.7.2.686 [id number] [id number] [facility] 2021-05-24 00:00:00 2021-05-24 00:00:00 Patient Secure Msg Delroy Sendzohra K.HPilar [facility] 1.2.840.114 350.1.13.10 4.2.7.2.686 [id number] [id number] [facility] 2021-05-24 00:00:00 2021-05-24 00:00:00 Patient Secure Claudette Hinds [facility] 1.2.840.114 350.1.13.10 4.2.7.2.686 [id number] [id number] [facility] 2021-05-23 10:00:00 2021-05-23 10:00:00 Outpatient R [facility] [id number] [facility] 2021-05-23 10:00:00 2021-05-23 10:00:00 Outpatient R [facility] [id number] [facility] 2021-05-23 00:00:00 2021-05-23 00:00:00 Patient Secure [facility] [place] [address].2.840.114 350.1.13.10 4.2.7.2.686 [id number] [id number] [facility] 2021-05-16 09:00:00 2021-05-16 09:00:00 Outpatient R TETO CARNES [facility] [id number] [facility] 2021-05-12 00:00:00 2021-05-12 00:00:00 Orders Only Doctor Unassigned, [place] [facility] 1.2.840.114 350.1.13.10 4.2.7.2.686 [id number] [facility] 2021-05-10 13:00:00 2021-05-10 13:00:00 Outpatient R CLAUDETTE EVANS [facility] [id number] [facility] 2021-05-10 13:00:00 2021-05-10 13:00:00 Outpatient R CLAUDETTE EVANS [facility] [id number] [facility] 2021-05-09 00:00:00 2021-05-09 00:00:00 Telephone [facility] 1.2.840.114 350.1.13.10 4.2.7.2.686 [id number] [facility] 2021-05-09 00:00:00 2021-05-09 00:00:00 Patient Secure Msg Reena Serrazohra [facility] 1.2.840.114 350.1.13.10 4.2.7.2.686 [id number] [facility] 2021-05-08 16:00:00 2021-05-08 16:00:00 Outpatient JE CRABTREE [facility] [id number] [facility] 2021-05-08 16:00:00 2021-05-08 16:00:00 Outpatient JE CRABTREE [facility] [id number] [facility] 2021-05-08 00:00:00 2021-05-08 00:00:00 Patient Secure g Reena Serrail [facility] 1.2.840.114 350.1.13.10 4.2.7.2.686 [id number] [id number] [facility] 2021-05-08 00:00:00 2021-05-08 00:00:00 Patient Secure g Delroy Reenazohra [facility] 1.2.840.114 350.1.13.10 4.2.7.2.686 [id number] 059 [id number] [facility] 2021-05-04 00:00:00 2021-05-04 00:00:00 Patient Secure Msg Delroy, Sendil [facility] 1.2.840.114 350.1.13.10 4.2.7.2.686 [id number] [id number] [facility] 2021-05-04 00:00:00 2021-05-04 00:00:00 Patient [facility] 1.2.840.114 350.1.13.10 4.2.7.2.686 [id number] [facility] 2021-05-03 11:15:36 2021-05-03 23:59:00 [facility] [id number] [facility] 2021-05-03 11:15:36 2021-05-03 23:59:00 Hospital En[facility] 1.2.840.114 350.1.13.10 4.2.7.2.686 [id number] [facility] 2021-05-03 00:00:00 2021-05-03 00:00:00 Telephone Claudette Evans [facility] OFF[facility] BUILD[facility] 1.2.840.114 350.1.13.10 4.2.7.2.686 [id number] 044 [id number] [facility] 2021-05-02 00:00:00 2021-05-02 00:00:00 Telephone Rad Serra [facility] BU[facility] 1.2.840.114 350.1.13.10 4.2.7.2.686 [id number] [id number] [facility] 2021-05-02 00:00:00 2021-05-02 00:00:00 Patient Secure Msg Claudette Evans [facility] 1.2.840.114 350.1.13.10 4.2.7.2.686 [id number] 044 [id number] [facility] 2021-05-02 00:00:00 2021-05-02 00:00:00 Telephone Claudette Evans [facility] 1..840.114 350.1.13.10 4.2.7.2.686 [id number] 044 [id number] [facility] 2021-05-02 00:00:00 2021-05-02 00:00:00 Patient Secure Msg Rad Serra. [facility] PROFESSIO NAL BUILDING 1..840.114 350.1.13.10 4.2.7.2.686 [id number] 059 [id number] [facility] 2021-05-02 00:00:00 2021-05-02 00:00:00 Patient Secure Msg Claudette Evans [facility] 1..840.114 350.1.13.10 4.2.7.2.686 [id number] 044 [id number] [facility] 2021-04-28 00:00:00 2021-04-28 00:00:00 Patient Secure Msg Claudette Evans [facility] 1.840.114 350.1.13.10 4.2.7.2.686 [id number] 044 [id number] [facility] 2021-04-27 14:24:00 2021-04-27 15:49:00 Emergency X MAGGIE HAMILTON [facility] ERT [id number] [facility] 2021-04-27 14:24:00 2021-04-27 15:49:00 Emergency Maggie Hamilton [facility] 1.2.840.114 350.1.13.10 4.2.7.2.686 [id number] [facility] 2021-04-27 11:15:00 2021-04-27 11:30:00 Laboratory Only Only, Ang Db Test Unknown, Attending Thony Johnson [facility] 1..840.114 350.1.13.10 4.2.7.2.686 [id number] [facility] 2021-04-27 11:15:00 2021-04-27 11:15:00 Outpatient THONY LUIS [facility] [id number] [facility] 2021-04-27 00:00:00 2021-04-27 00:00:00 Orders Only Doctor Unassigned, [place] [facility] 1.840.114 350.1.13.10 4.2.7.2.686 [id number] [id number] [facility] 2021-04-20 15:00:00 2021-04-20 15:00:00 Outpatient EDER RENEE [facility] [id number] [facility] 2021-04-13 00:00:00 2021-04-13 00:00:00 Patient Secure Msg Cristina Briankacey Kassandra [facility] BUILDING 1.840.114 350.1.13.10 4.2.7.2.686 [id number] 044 [id number] [facility] 2021-04-12 00:00:00 2021-04-12 00:00:00 Telephone Cristina Claudette Cannon [facility] BUILDING 1.840.114 350.1.13.10 4.2.7.2.686 [id number] 044 [id number] [facility] 2021-03-27 00:00:00 2021-03-27 00:00:00 Telephone Prasanna Vargas [facility] 1.840.114 350.1.13.10 4.2.7.2.686 [id number] [facility] 2021-03-24 00:00:00 2021-03-24 00:00:00 Patient Secure Msg Doctor Unassigned, [place] [facility] 1.840.114 350.1.13.10 4.2.7.2.686 [id number] [facility] 2021-03-23 13:30:00 2021-03-23 13:30:00 Outpatient R PINO HOFF [facility] [id number] [facility] 2021-03-23 13:30:00 2021-03-23 13:30:00 Outpatient R PINO HOFF [facility] [id number] [facility] 2021-03-22 09:20:00 2021-03-22 09:20:00 Outpatient R ADITYA MEEKS STRAHIL [facility] [id number] [facility] 2021-03-22 09:20:00 2021-03-22 09:20:00 Outpatient R ADITYA MEEKS STRAHIL [facility] [id number] [facility] 2021-03-20 00:00:00 2021-03-20 00:00:00 Outpatient CLAUDETTE CEDILLO [facility] [id number] [facility] 2021-03-18 00:00:00 2021-03-18 00:00:00 Case Management Claudette Evans [facility] TOÑO?[facility] 1..840.114 350.1.13.10 4.2.7.2.686 [id number] 044 [id number] [facility] 2021-03-16 11:16:07 2021-03-16 11:31:07 Acid Changer Visit Lab, Ang - Db Claudette Evans [facility] TO[facility]O?[facility] 1..840.114 350.1.13.10 4.2.7.2.686 [id number] [facility] 2021-03-16 11:30:00 2021-03-16 11:30:00 Outpatient R CLAUDETTE EVANS [facility] [id number] [facility] 2021-03-16 11:00:00 2021-03-16 11:14:45 Outpatient R CLAUDETTE EVANS [facility] [id number] [facility] 2021-03-16 10:00:58 2021-03-16 11:14:45 Office Visit Claudette Evans [facility] ANGLEROBERTA LUNDBERG?KARLOSKassandra [facility] OFF[facility] BUILDING 1.2.840.114 350.1.13.10 4.2.7.2.686 [id number] [facility] 2021-03-16 00:00:00 2021-03-16 00:00:00 Patient Secure Msg Claudette Evans [facility] ANGLEROBERTA LUNDBERG?KARLOSKassnadra [facility] OFF[facility] BUILDING 1.2.840.114 350.1.13.10 4.2.7.2.686 [id number] [facility] 2021-03-02 16:15:00 2021-03-02 16:15:00 Outpatient R CLAUDETTE EVANS [facility] [id number] [facility] 2021-02-28 18:30:00 2021-02-28 18:30:00 Outpatient R ILEANA MEDRANO [facility] [id number] [facility] 2021-02-28 00:00:00 2021-02-28 00:00:00 Telephone Claudette Evans [facility] Maurice Lundberg?Tessa [facility] Medical Office Building 1.2.840.114 350.1.13.10 4.2.7.2.686 [id number] [id number] [facility] 2021-02-27 09:00:00 2021-02-27 09:00:00 Outpatient R STEPHANY AMELIA [facility] [id number] [facility] 2021-02-23 00:00:00 2021-02-23 00:00:00 Telephone [facility] Medical Office Building 1.2.840.114 350.1.13.10 4.2.7.2.686 [id number] 044 [id number] [facility] 2021-02-10 18:12:00 2021-02-10 23:39:00 Emergency Kaycee Méndez [facility] 1.2.840.114 350.1.13.10 4.2.7.2.686 [id number] 084 [id number] [facility] 2021-02-10 00:00:00 2021-02-10 00:00:00 Patient Secure Msg Branden Evansful A [facility] 1.2.840.114 350.1.13.10 4.2.7.2.686 [id number] 044 [id number] [facility] 2021-02-10 00:00:00 2021-02-10 00:00:00 Patient Secure Msg Branden Evansful A [facility] 1.2840.114 350.1.13.10 4.2.7.2.686 [id number] 044 [id number] [facility] 2021-02-10 00:00:00 2021-02-10 00:00:00 Patient Secure Msg Branden Evansful A [facility] FOFANAE?[facility] 1.2.840.114 350.1.13.10 4.2.7.2.686 [id number] 044 [id number] [facility] 2021-02-10 00:00:00 2021-02-10 00:00:00 Patient Secure Msg Brian Evansdiful A [facility] FOFANAE?[facility] 1.2.840.114 350.1.13.10 4.2.7.2.686 [id number] 044 [id number] [facility] 2021-02-09 13:40:00 2021-02-09 23:59:00 Hospital Encounter Claudette [facility]?Tessa [facility] Medical Office Building 1.84114 350.1.13.10 4.2.7.2.686 [id number] [facility] 2021-02-09 13:49:05 2021-02-09 14:04:05 Acid Changer Visit Lab, Ang - Db Claudette Evans [facility]?Tessa [facility] Medical Office Building 1.114 350.1.13.10 4.2.7.2.686 [id number] [facility] 2021-02-09 12:23:13 2021-02-09 13:47:12 Office Visit Claudette Evans [facility] Maurice Lundberg?Tessa [facility] Medical Office Building 1.84114 350.1.13.10 4.2.7.2.686 [id number] [facility] 2021-02-09 13:00:00 2021-02-09 13:00:00 Outpatient R CLAUDETTE EVANS [facility] [id number] [facility] 2021-02-09 00:00:00 2021-02-09 00:00:00 Patient Secure Msg Doctor Unassigned, [place] [facility] 1..114 350.1.13.10 4.2.7.2.686 [id number] [facility] 2021-02-08 10:20:00 2021-02-08 10:20:00 Outpatient R ADITYA MEEKS STRAHIL [facility] [id number] [facility] 2021-02-07 00:00:00 2021-02-07 00:00:00 Patient Secure Msg Claudette Evans [facility] BU[facility] 1.84.114 350.1.13.10 4.2.7.2.686 [id number] [facility] 2021-02-02 10:30:00 2021-02-02 10:30:00 Outpatient SKYLAR CEBALLOS [facility] [id number] [facility] 2021-02-02 00:00:00 2021-02-02 00:00:00 Telephone Claudette [facility] Medical Office Building 1..840.114 350.1.13.10 4.2.7.2.686 [id number] [facility] 2021-02-01 08:30:00 2021-02-01 08:30:00 Outpatient SKYLAR CEBALLOS [facility] [id number] [facility] 2021-01-31 18:44:04 2021-01-31 19:41:26 [facility] Medical Office Building 1.840.114 350.1.13.10 4.2.7.2.686 [id number] [facility] 2021-01-31 19:00:00 2021-01-31 19:00:00 Outpatient R FLACO BOYD [facility] [id number] [facility] 2021-01-31 00:00:00 2021-01-31 00:00:00 Telephone Claudette Evans [facility] Medical Office Building 1..840.114 350.1.13.10 4.2.7.2.686 [id number] 044 [id number] [facility] 2021-01-31 00:00:00 2021-01-31 00:00:00 Patient Secure Msg Claudette Evans [facility] 1..840.114 350.1.13.10 4.2.7.2.686 [id number] 044 [id number] [facility] 2021-01-30 00:00:00 2021-01-30 00:00:00 Telephone Rad Serra [facility] nal Building 1.840.114 350.1.13.10 4.2.7.2.686 [id number] [facility] 2021-01-30 00:00:00 2021-01-30 00:00:00 Patient Secure Msg Claudette Evans A [facility] OFFICE BUILDING ONE 1.840.114 350.1.13.10 4.2.7.2.686 [id number] [facility] 2021-01-26 14:00:00 2021-01-26 14:00:00 Outpatient R RAD SERRA [facility] [id number] [facility] 2021-01-26 00:00:00 2021-01-26 00:00:00 Patient Secure Msg Skylar Groves [facility] BUILD[facility] 1.840.114 350.1.13.10 4.2.7.2.686 [id number] [id number] [facility] 2021-01-25 15:00:00 2021-01-25 15:00:00 Outpatient R [facility] [id number] [facility] 2021-01-21 00:00:00 2021-01-21 00:00:00 Patient Secure Msg Skylar Groves [facility]?KARLOSKassandra [facility] MED[facility] OFF[facility] BUILDING 1..840.114 350.1.13.10 4.2.7.2.686 [id number] [facility] 2021-01-20 16:51:22 2021-01-20 17:12:41 Telemedici ne Visit Skylar Groves [facility] Toño?[facility] Medical Office Building 1.840.114 350.1.13.10 4.2.7.2.686 [id number] [id number] [facility] 2021-01-20 16:30:00 2021-01-20 16:30:00 Outpatient R SKYLAR GROVES [facility] [id number] [facility] 2021-01-19 10:15:00 2021-01-19 10:15:00 Outpatient R KAYLEY GARCÍA [facility] [id number] [facility] 2021-01-14 00:00:00 2021-01-14 00:00:00 Case Management Kassandra Robledo [facility] 1.114 350.1.13.10 4.2.7.2.686 [id number] [facility] 2021-01-14 00:00:00 2021-01-14 00:00:00 Patient Secure Msg Doctor Unassigned, [place] [facility] 1.114 350.1.13.10 4.2.7.2.686 [id number] [facility] 2021-01-12 16:10:00 2021-01-12 19:45:00 Emergency Hany Matthews [facility] 1..114 350.1.13.10 4.2.7.2.686 [id number] [facility] 2021-01-12 15:20:00 2021-01-12 15:20:00 Outpatient ILEANA CASE [facility] [id number] [facility] 2021-01-12 14:46:57 2021-01-12 15:06:57 Urgent Care Thony Johnson [facility]?Tessa amarjitmoe Medical Office Building 1..114 350.1.13.10 4.2.7.2.686 [id number] [facility] 2020-12-26 15:30:00 2020-12-26 16:13:32 Outpatient R RAD SERRA [facility] [id number] [facility] 2020-12-26 15:30:00 2020-12-26 16:13:32 Office Visit Rad SerraPilar [facility] BUILDING 1.2.840.114 350.1.13.10 4.2.7.2.686 [id number] [facility] 2020-12-26 15:00:32 2020-12-26 16:13:32 Office Visit Rad Serra [facility] Building 1.2.840.114 350.1.13.10 4.2.7.2.686 [id number] [facility] 2020-12-26 15:30:00 2020-12-26 15:30:00 Outpatient R RAD SERRA [facility] [id number] [facility] 2020-11-29 00:00:00 2020-11-29 00:00:00 Patient Secure Msg Rad SerraPilar [facility] BUILDING 1.2.840.114 350.1.13.10 4.2.7.2.686 [id number] [facility] 2020-11-22 11:00:00 2020-11-22 11:00:00 Outpatient R CELINA MIXON [facility] [id number] [facility] 2020-11-10 18:42:46 2020-11-10 19:53:43 Urgent Care Alissa Collins [facility] Office Building One 1.2.840.114 350.1.13.10 4.2.7.2.686 [id number] 2020-11-10 19:00:00 2020-11-10 19:00:00 Outpatient R [facility] [id number] [facility] 2020-10-31 18:52:00 2020-10-31 22:15:00 Emergency Kaycee Méndez [facility] 1.2.840.114 350.1.13.10 4.2.7.2.686 [id number] 2020-10-31 19:00:00 2020-10-31 19:00:00 Outpatient CARI TUTTLE [facility] [id number] [facility] 2020-10-31 00:00:00 2020-10-31 00:00:00 Orders Only Doctor Unassigned, [place] [facility] 1.2.840.114 350.1.13.10 4.2.7.2.686 [id number] 2020-10-20 14:02:00 2020-10-20 17:13:00 Emergency Kaycee Méndez [facility] 1.2.840.114 350.1.13.10 4.2.7.2.686 [id number] 2020-10-18 00:00:00 2020-10-18 00:00:00 Patient Secure Msg Prasanna Vargas [facility] BUILDING 1.2.840.114 350.1.13.10 4.2.7.2.686 [id number] [facility] 2020-10-14 10:00:00 2020-10-14 23:59:00 Hospital Encounter Prasanna Vargas [facility] 1.2.840.114 350.1.13.10 4.2.7.2.686 [id number] 2020-10-14 13:30:00 2020-10-14 13:30:00 Outpatient CELINA STONE [facility] [id number] [facility] 2020-10-11 00:00:00 2020-10-11 00:00:00 Patient Secure Msg [facility] 1.2.840.114 350.1.13.10 4.2.7.2.686 [id number] 134 [id number] [facility] 2020-10-11 00:00:00 2020-10-11 00:00:00 Patient Secure Msg Prasanna Vargas [facility] 1.2840.114 350.1.13.10 4.2.7.2.686 [id number] 134 [id number] [facility] 2020-10-09 12:00:00 2020-10-09 15:57:00 Emergency [facility] 1.2840.114 350.1.13.10 4.2.7.2.686 [id number] 2020-10-07 00:00:00 2020-10-07 00:00:00 Patient Secure Msg Prasanna Vargas [facility] 1.2840.114 350.1.13.10 4.2.7.2.686 [id number] 134 [id number] [facility] 2020-10-07 00:00:00 2020-10-07 00:00:00 Patient Secure Msg Prasanna Vargas [facility] 1.2840.114 350.1.13.10 4.2.7.2.686 [id number] 134 [id number] [facility] 2020-10-07 00:00:00 2020-10-07 00:00:00 Patient Secure Msg Prasanna Vargas [facility] 1.2840.114 350.1.13.10 4.2.7.2.686 [id number] 134 [id number] [facility] 2020-10-07 00:00:00 2020-10-07 00:00:00 Patient Secure Msg Prasanna Vargas [facility] 1.2840.114 350.1.13.10 4.2.7.2.686 [id number] 134 [id number] [facility] 2020-10-07 00:00:00 2020-10-07 00:00:00 Patient Secure Msg Prasanna Vargas [facility] 1.2.840.114 350.1.13.10 4.2.7.2.686 [id number] 134 [id number] [facility] 2020-10-07 00:00:00 2020-10-07 00:00:00 Patient Secure Msg Prasanna Vargas [facility] 1.2.840.114 350.1.13.10 4.2.7.2.686 [id number] 134 [id number] [facility] 2020-10-07 00:00:00 2020-10-07 00:00:00 Patient Secure Msg Prasanna Vargas [facility] 1.2.840.114 350.1.13.10 4.2.7.2.686 [id number] 134 [id number] [facility] 2020-10-06 08:53:00 2020-10-06 09:46:44 [facility] 1.2.840.114 350.1.13.10 4.2.7.2.686 [id number] 2020-10-06 09:30:00 2020-10-06 09:30:00 Outpatient R PRASANNA VARGAS [facility] [id number] [facility] 2020-10-04 14:00:00 2020-10-04 14:00:00 Outpatient [facility] [id number] [facility] 2020-09-30 10:30:00 2020-09-30 10:30:00 Outpatient [facility] [id number] [facility] 2020-09-29 13:45:00 2020-09-29 13:45:00 Outpatient R PREET SHAY [facility] [id number] [facility] 2020-09-06 15:30:00 2020-09-06 15:30:00 Outpatient PRASANNA LOOMIS [facility] [id number] [facility] 2020-09-05 00:00:00 2020-09-05 00:00:00 Patient Secure Prasanna Kang [facility] BUILD[facility] 1.2.840.114 350.1.13.10 4.2.7.2.686 [id number] 134 [id number] [facility] 2020-09-02 15:40:00 2020-09-02 15:40:00 Outpatient DARRION QUIROZ [facility] [id number] [facility] 2020-08-31 10:30:00 2020-08-31 10:30:00 Outpatient RAD [facility]AMOROS [facility] [id number] [facility] 2020-08-31 00:00:00 2020-08-31 00:00:00 [facility] 1.2.840.114 350.1.13.10 4.2.7.2.686 [id number] [facility] 2020-08-18 09:30:00 2020-08-18 09:30:00 Outpatient PRASANNA [facility]IS [facility] [id number] [facility] 2020-08-11 13:30:00 2020-08-11 13:30:00 Outpatient Farzana VARGASPRASANNA [facility] [id number] [facility] 2020-08-04 14:00:00 2020-08-04 14:00:00 Outpatient EDER RENEE [facility] [id number] [facility] 2020-07-28 10:30:00 2020-07-28 10:30:00 Outpatient REENA [facility]IL [facility] [id number] [facility] 2020-06-30 16:15:00 2020-06-30 16:15:00 Outpatient Farzana CLAUDETTE EVANS [facility] [id number] [facility] 2020-06-17 15:00:00 2020-06-17 15:00:00 Outpatient DARRION QUIROZ HOWARD [facility] [id number] [facility] 2020-06-16 15:30:00 2020-06-16 15:30:00 Outpatient R RAD SERRA [facility] [id number] [facility] 2020-06-09 12:30:00 2020-06-09 12:30:00 Outpatient NI YUNG [facility] [id number] [facility] 2020-06-08 08:00:00 2020-06-08 08:00:00 Outpatient NI YUNG [facility] [id number] [facility] 2020-06-02 09:00:00 2020-06-02 09:00:00 Outpatient RAD [facility] [id number] [facility] 2020-05-28 10:00:00 2020-05-28 10:00:00 Outpatient Farzana NATASHA CARI [facility] [id number] [facility] 2020-05-26 00:00:00 2020-05-26 00:00:00 Patient Secure Cristina, Claudette [facility] 1.2.840.114 350.1.13.10 4.2.7.2.686 [id number] [facility] 2020-05-24 10:00:00 2020-05-24 10:00:00 Outpatient NI YUNG [facility] [id number] [facility] 2020-05-24 00:00:00 2020-05-24 00:00:00 Patient Secure Msg Doctor Unassigned, [place] [facility] 1.2.840.114 350.1.13.10 4.2.7.2.686 [id number] [facility] 2020-05-19 16:30:00 2020-05-19 16:30:00 Outpatient R OSITO HITCHCOCK [facility] [id number] [facility] 2020-05-17 13:00:00 2020-05-17 13:00:00 Outpatient DARRION QUIROZ [facility] [id number] [facility] 2020-05-16 16:00:00 2020-05-16 16:00:00 Outpatient R CLAUDETTE [facility]ANS [facility] [id number] [facility] 2020-05-09 00:00:00 2020-05-09 00:00:00 Patient Secure g Brian Evanskacey A [facility] 1.2.840.114 350.1.13.10 4.2.7.2.686 [id number] [facility] 2020-05-08 10:24:00 2020-05-08 13:03:00 Emergency X ALEXSIRUOLAMIDE [facility] E[facility] [id number] [facility] 2020-05-03 15:00:00 2020-05-03 15:00:00 Outpatient R CLAUDETTE [facility]ANS [facility] [id number] [facility] 2020-04-30 11:14:00 2020-05-01 15:50:00 Outpatient X RODRIGUEZ HOFF [facility] [place] [id number] [facility] 2020-04-30 10:20:00 2020-04-30 10:20:00 Outpatient ROSALES KRISHNA [facility] [id number] [facility] 2020-04-30 10:15:00 2020-04-30 10:15:00 Outpatient ROSALES KRISHNA [facility] [id number] [facility] 2020-04-29 00:00:00 2020-04-29 00:00:00 Patient Secure Msg Heaven Hitchcocksir [facility] 1..114 350.1.13.10 4.2.7.2.686 [id number] [facility] 2020-04-28 14:00:00 2020-04-28 14:00:00 Outpatient R OSITO [facility]OCK [facility] [id number] [facility] 2020-04-25 16:15:00 2020-04-25 16:15:00 Outpatient R CLAUDETTE EVANS [facility] [id number] [facility] 2020-04-22 00:00:00 2020-04-22 00:00:00 Patient Secure Msg Eder Fletcher [facility] 1.840.114 350.1.13.10 4.2.7.2.686 [id number] [facility] 2020-04-18 10:00:00 2020-04-18 10:00:00 Outpatient R JACK [facility]ITO [facility] [id number] [facility] 2020-04-15 10:30:00 2020-04-15 10:30:00 Outpatient R RAD SERRA [facility] [id number] [facility] 2020-04-12 13:38:00 2020-04-13 16:25:00 [facility] [id number] [facility] 2020-03-17 16:15:00 2020-03-17 16:15:00 Outpatient R TETO CARNES [facility] [id number] [facility] 2020-03-04 00:00:00 2020-03-04 00:00:00 Refill Heaven Hitchcocksir [facility] 1.84.114 350.1.13.10 4.2.7.2.686 [id number] 2020-02-25 16:00:00 2020-02-25 16:00:00 Outpatient R OSITO HITCHCOCK [facility] [id number] [facility] 2020 14:00:00 2020 14:00:00 Outpatient R TETO CARNES [facility] [id number] [facility] 2020-02-08 10:30:00 2020-02-08 10:30:00 Outpatient R PRASANNA VARGAS [facility] [id number] [facility] 2020-02-05 00:00:00 2020-02-05 00:00:00 Patient Secure Prasanna Kang [facility] 1.2.840.114 350.1.13.10 4.2.7.2.686 [id number] [facility] 2020-02-04 13:30:00 2020-02-04 13:30:00 Outpatient R OSITO HITCHCOCK [facility] [id number] [facility] 2020-01-23 10:15:00 2020-01-23 10:15:00 Outpatient R [facility] [id number] [facility] 2020-01-21 13:00:00 2020-01-21 13:00:00 Outpatient R OSITO HITCHCOCK [facility] [id number] [facility] 2020-01-14 16:00:00 2020-01-14 16:00:00 Outpatient R OSITO HITCHCOCK [facility] [id number] [facility] 2020-01-05 13:45:00 2020-01-05 13:45:00 Outpatient R PRASANNA VARGAS [facility] [id number] [facility] 2020-01-05 00:00:00 2020-01-05 00:00:00 Patient Secure Prasanna Kang [facility] 1.2.840.114 350.1.13.10 4.2.7.2.686 [id number] [facility] 2019-12-03 10:30:00 2019-12-03 10:30:00 Outpatient R CRICKET TAYLOR [facility] [id number] [facility] 2019-11-27 11:00:00 2019-11-27 11:00:00 Outpatient TETO BRANTLEY [facility] [id number] [facility] 2019-11-26 00:00:00 2019-11-26 00:00:00 Patient Secure Msg Doctor Unassigned, [place] [facility] 1..840.114 350.1.13.10 4.2.7.2.686 [id number] [facility] 2019-11-25 08:00:00 2019-11-25 08:00:00 Outpatient TETO BRANTLEY [facility] [id number] [facility] 2019-11-23 00:00:00 2019-11-23 00:00:00 Patient Secure Msg Doctor Unassigned, [place] [facility] 1..840.114 350.1.13.10 4.2.7.2.686 [id number] [facility] 2019-11-18 10:00:00 2019-11-18 10:00:00 Outpatient TETO BRANTLEY [facility] [id number] [facility] 2019-11-17 00:00:00 2019-11-17 00:00:00 Patient Secure Msg Doctor Unassigned, [place] [facility] 1..840.114 350.1.13.10 4.2.7.2.686 [id number] [facility] 2019-11-13 00:00:00 2019-11-13 00:00:00 Patient Secure Msg Prasanna Vargas [facility] 1..840.114 350.1.13.10 4.2.7.2.686 [id number] [facility] 2019-09-02 11:00:00 2019-09-02 11:00:00 Outpatient R CRICKET TAYLOR [facility] [id number] [facility] 2019-08-14 10:15:00 2019-08-14 10:15:00 Outpatient R TETO CARNES [facility] [id number] [facility] 2019-08-13 11:00:00 2019-08-13 11:00:00 Outpatient R CRICKET TAYLOR [facility] [id number] [facility] 2019-08-12 09:00:00 2019-08-12 09:00:00 Outpatient R [facility] [id number] [facility] 2019-07-20 16:06:00 2019-07-20 16:06:00 Outpatient PRASANNA HERRERA [facility] [id number] [facility] 2019-07-20 08:15:00 2019-07-20 08:15:00 Outpatient R CRICKET TAYLOR [facility] [id number] [facility] 2019-07-13 08:00:00 2019-07-13 08:00:00 Outpatient R CRICKET TAYLOR [facility] [id number] [facility] 2019-07-12 13:39:00 2019-07-12 13:39:00 Outpatient PRASANNA HERRERA [facility] [id number] [facility] 2019-07-06 13:00:00 2019-07-06 13:00:00 Outpatient R CRICKET TAYLOR [facility] [id number] [facility] 2019-06-13 10:40:46 2019-06-13 12:35:00 Emergency X HÉCTORSAHRASARAHI [facility] ERT [id number] [facility] 2019-05-13 23:07:00 2019-05-14 09:15:00 Outpatient P PRASANNA VARGAS [facility] [id number] [facility] Results Test Description Test Time Test Comments Results Result Comments Source CT Abdomen pelvis wo contrast 2024-04 15:32:0 3 EXAM: CT ABDOMEN PELVIS WO CONTRAST ORDERING PROVIDER: BERNARDO LEVY HISTORY: 29 years-old Female; Ordered Indication: Flank pain, kidney stonesuspected . TECHNIQUE: Contiguous axial imaging from the level of the lung basesthrough the proximal thighs was performed without the intravenousadministration of contrast. Coronal and sagittal reconstructions wereobtained. COMPARISON: CT abdomen pelvis obtained on 04/12/2024 FINDINGS: LOWER THORAX: The lung bases are clear. LIVER: No suspicious hepatic lesion is seen within a noncontrastexamination. GALLBLADDER AND BILIARY TREE: Postsurgical changes of cholecystectomy areseen. No biliary ductal dilatation is visualized. SPLEEN: The spleen is normal in size. PANCREAS: No ductal dilation or solid mass is visualized. ADRENAL GLANDS: No mass is seen. KIDNEYS/URETER/BLADDER: A 5 mm stone at the right upper pole is unchanged.The left kidney is unremarkable. The urinary bladder is mostlydecompressed. PELVIC ORGANS: No suspicious pelvic mass is seen. GI TRACT: A large volume of solid stool is present without obstruction. Theappendix appears unremarkable. PERITONEUM AND RETROPERITONEUM: No intra-abdominal free air or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 0.34 10*3/uL 0.33-0.92 EOS x10^3 (test code = 711-2) 0.13 10*3/uL 0.03-0.39 BASO x10^3 (test code = 704-7) 0.03 10*3/uL 0.01-0.07 Lab Interpretation (test code = 16796-2) Abnormal [facility] [id number] 13:14:00* Test Item Value Reference Range Interpretation Comme nts POCT PREG (test code = 1605) Negative On board controls acceptable with C Line (test code = 3574) Yes POCT PREG LOT # (test code = 3575) [id number] POCT PREG TEST DATE ( test code = 3576) 02/14/2025 Lab Interpretation (test cod e = 52822-4) Normal [facility] Transglutaminase (TTG) [id number] 19:09:23* Test Item Value Reference Range Interpretation Comme [facility] Tissue Transglutaminase (tTG) Ab, IgA Interpretation (test code = 33283-3) Negative Negative Tissue Transglutaminase (tTG) Ab, IgA (test code = 3386656630) 1.1 U/mL <=7.0 WESLEY (test code = WESLEY) < 7 U/mL ? Negative7 - 10 U/mL ?Equivocal> 10 U/mL ?Positive In case of equivocal results, we recommend to retest the patient after 8 -12 weeks. Lab Interpretation (test code = 84289-9) Normal [facility] Transglutaminase (TTG) [id number] 19:09:23* Test Item Value Reference Range Interpretation Comme nts Tissue Transglutaminase (tTG) Ab, IgA Interpretation (test code = 63171-4) Negative Negative Tissue Transglutaminase (tTG) Ab, IgA (test code = 6237009996) 1.1 U/mL <=7.0 WESLEY (test code = WESLEY) < 7 U/mL ? Negative7 - 10 U/mL ?Equivocal> 10 U/mL ?Positive In case of equivocal results, we recommend to retest the patient after 8 -12 weeks. Lab Interpretation (test code = 23667-3) Normal [facility] CenterDeamidated Gliadin [id number] 19:08:56* Test Item Value Reference Range Interpretation Comme nts Deamidated Gliadin Peptide (DGP) Ab, IgG Interpretation (test code = 59059-5) Negative Negative Deamidated Gliadin Peptide (DGP) Ab, IgG (test code = 1813947335) <=7.0 WESLEY (test code = WESLEY) < 7 U/mL ? Negative7 - 10 U/mL ?Equivocal> 10 U/mL ?Positive In case of equivocal results, we recommend to retest the patient after 8 -12 weeks. Lab Interpretation (test code = 16994-6) Normal [facility] CenterDeamidated Gliadin [id number] 19:08:56* Test Item Value Reference Range Interpretation Comme nts Deamidated Gliadin Peptide (DGP) Ab, IgG Interpretation (test code = 95913-6) Negative Negative Deamidated Gliadin Peptide (DGP) Ab, IgG (test code = 0834690423) <=7.0 WESLEY (test code = WESLEY) < 7 U/mL ? Negative7 - 10 U/mL ?Equivocal> 10 U/mL ?Positive In case of equivocal results, we recommend to retest the patient after 8 -12 weeks. Lab Interpretation (test code = 78334-5) Normal [facility] CenterDeamidated Gliadin [id number] 19:08:55* Test Item Value Reference Range Interpretation Comme nts Deamidated Gliadin Peptide (DGP) Ab, IgA Interpretation (test code = 47477-9) Negative Negative Deamidated Gliadin Peptide (DGP) Ab, IgA (test code = 7458488831) 0.8 U/mL <=7.0 WESLEY (test code = WESLEY) < 7 U/mL ? Negative7 - 10 U/mL ?Equivocal> 10 U/mL ?Positive In case of equivocal results, we recommend to retest the patient after 8 -12 weeks. Lab Interpretation (test code = 73333-0) Normal [facility] CenterDeamidated Gliadin [id number] 19:08:55* Test Item Value Reference Range Interpretation Comme nts Deamidated Gliadin Peptide (DGP) Ab, IgA Interpretation (test code = 36033-0) Negative Negative Deamidated Gliadin Peptide (DGP) Ab, IgA (test code = 2296642995) 0.8 U/mL <=7.0 WESLEY (test code = WESLEY) < 7 U/mL ? Negative7 - 10 U/mL ?Equivocal> 10 U/mL ?Positive In case of equivocal results, we recommend to retest the patient after 8 -12 weeks. Lab Interpretation (test code = 18868-9) Normal [facility] CenterXR [id number] 21:07:52EXAM: XR KUB HISTORY: 29 years-old Female; Provided indication: Checking for bowelobstruction or con stipation . TECHNIQUE: Frontal view of the abdomen and pelvis COMPARISON: MR abdomen obtained on 02/25/2024[facility] CenterXR [id number] 21:07:52EXAM: XR KUB HISTORY: 29 years-old Female; Provided indication: Checking for bowelobstruction or constipation . TECHNIQUE: Frontal view of the abdomen and pelvis COMPARISON: [facility] [id number] 21:07:42EXAM: MRI ABDOMEN with and without CONTRAST HISTORY: 29 yo F with MPH of breast cancer (s/p chemoradiation: doxorubicin2 years ago), presents for intractable nausea/vomiting with hematemesis+abdominal pain. 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 FINDINGS: T2 sequences are very limited by respiratory motion. LOWER THORAX: The lungs bases are clear. No cardiomegaly. LIVER: Normal parenchymal signal characteristics. No focal hepatic lesions. No biliary ductal dilation. BILIARY TREE: Post cholecystectomy. There is a tiny focus of I9nzlovfzxcvsixp seen only on the T2 fat-suppressed axial sequence at thegallbladder fossa which could be artifact associated with previouscholecystectomy or tiny focus of fluid, possibly residual fluid from aprevious hematoma or seroma. This is likely within the range of normalpostcholecystectomy. This appears less pronounced and small focus of fluidat the gallbladder fossaon the CT from 05/19/2023. Common bile duct ismildly dilated measuring up to 7 mm. The common hepaticduct and centralintrahepatic bile ducts are mildly dilated. Findings likely representpostcholecystectomy reservoir phenomenon. Common bile duct tapers to theampulla without evidence of choledocholithiasis or obstructing lesion. SPLEEN: No splenomegaly. Subcentimeter cyst in the spleen is unchanged.PANCREAS: No ductal dilation or masses. GASTROINTESTINAL: Evaluation of the bowel is limited on MRI. No dilatedbowel loops. ADRENAL GLANDS: No adrenal nodules. KIDNEYS: No hydronephrosis or masses. PERITONEUM AND RETROPERITONEUM: No upper abdominal ascites. LYMPH NODES: No lymphadenopathy. VESSELS:Unremarkable. BONES AND SOFT TISSUES: Unremarkable.[facility] ABDOMEN W WO CONTRAST [id number] 21:07:42EXAM: MRI ABDOMEN with and without CONTRAST HISTORY: 29 yo F with MPH of breast cancer (s/p chemoradiation: doxorubicin2 years ago), presents for intractable nausea/vomiting with hematemesis+abdominal pain. 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 FINDINGS: T2 sequences are very limited by respiratory motion. LOWER THORAX: The lungs bases are clear. No cardiomegaly. LIVER: Normal parenchymal signal characteristics. No focal hepatic lesions. No biliary ductal dilation. BILIARY TREE: Post cholecystectomy. There is a tiny focus of U7rwyrohpseulzsi seen only on the T2 fat-suppressed axial sequence at thegallbladder fossa which could be artifact associated with previouscholecystectomy or tiny focus of fluid, possibly residual fluid from aprevious hematoma or seroma. This is likely within the range of jane lpostcholecystectomy. This appears less pronounced and small focus of fluidat the gallbladder fossaon the CT from 05/19/2023. Common bile duct ismildly dilated measuring up to 7 mm. The common hepaticduct and centralintrahepatic bile ducts are mildly dilated. Findings likely representpostcholecystectomy reservoir phenomenon. Common bile duct tapers to theampulla without evidence of choledocholithiasis or obstructing lesion. SPLEEN: No splenomegaly. Subcentimeter cyst in the spleen is unchanged.PANCREAS: No ductal dilation or masses. GASTROINTESTINAL: Evaluation of the bowel is limited on MRI. No dilatedbowel loops. ADRENAL GLANDS: No adrenal nodules. KIDNEYS: No hydronephrosis or masses. PERITONEUM AND RETROPERITONEUM: No upper abdominal ascites. LYMPH NODES: No lymphadenopathy. VESSELS:Unremarkable. BONES AND SOFT TISSUES: Unremarkable.[facility] GLUCOSE (AUTOMATED) 2024-02-24 01:35:26* Test Item Value Reference Range Interpretation Comme [facility] POCT GLU (test code = 9187066479) 95 mg/dL 70-110 Lab Interpretation (test cod e = 59808-3) Normal [facility] GLUCOSE (AUTOMATED)2024-02-24 01:35:26* Test Item Value Reference Range Interpretation Comme [facility] POCT GLU (test code = 7121163912) 95 mg/dL 70-110 Lab Interpretation (test cod e = 37110-8) Normal [facility] CenterHcv [id number] 21:28:55* Test Item Value Reference Range Interpretation Comme nts HCV Ab (test code = 79857-5) Negative HCV Semi-Quantitative (test code = 30440-6) 0.01 [facility] CenterHcv [id number] 21:28:55* Test Item Value Reference Range Interpretation Comme nts HCV Ab (test code = 45470-6) Negative HCV Semi-Quantitative (test code = 57630-9) 0.01 [facility] CenterC-Reactive [id number] 18:59:19* Test Item Value Reference Range Interpretation Comme nts CRP (test code = 1787967025) 0.3 mg/dL <=0.8 Lab Interpretation (test cod e = 98336-9) Normal [facility] CenterC-Reactive [id number] 18:59:19* Test Item Value Reference Range Interpretation Comme nts CRP (test code = 7442377897) 0.3 mg/dL <=0.8 Lab Interpretation (test cod e = 74048-1) Normal [facility] CenterHepatitis B Surface [id number] 16:37:53* Test Item Value Reference Range Interpretation Comme nts HBsAB (test code = 6661870937) Negative HBsAb Semi-Quantitative (test code = 2133504193) 0.00 mIU/mL WESLEY (test code = WESLEY) Interpretation: ?Hepatitis B Surface Antibody ? Negative - Patient is considered to be not immune to infection with HBV. ? ? Positive - Anti-HBs detected at greater than or equal to 12 mIU/mL. ?Patient is considered to be immune to infection with HBV. ? [facility] CenterHepatitis B Surface [id number] 16:37:53* Test Item Value Reference Range Interpretation Comme nts HBsAB (test code = 7001495548) Negative HBsAb Semi-Quantitative (test code = 4819354285) 0.00 mIU/mL WESLEY (test code = WESLEY) Interpretation: ?Hepatitis B Surface Antibody ? Negative - Patient is considered to be not immune to infection with HBV. ? ? Positive - Anti-HBs detected at greater than or equal to 12 mIU/mL. ?Patient is considered to be immune to infection with HBV. ? [facility] CenterHIV 1/2 Ag-Ab with [id number] 16:37:47* Test Item Value Reference Range Interpretation Comme nts HIV Semi-quantitative (test code = 68076-8) 0.09 Negative WESLEY (test code = WESLEY) Non-reactive for HIV-1 antigen and HIV-1/HIV-2 antibodies. ?No laboratory evidence of HIV infection. ?Repeat in 2-4 weeks if acute HIV infection is suspected. [facility] CenterHepatitis B Surface [id number] 16:37:47 * Test Item Value Reference Range Interpretation Comme nts HBsAg Semi-Quantitative (maeve t code = 5195-3) 0.12 Negative [facility] CenterHIV 1/2 Ag-Ab with [id number] 16:37:47* Test Item Value Reference Range Interpretation Comme nts HIV Semi-quantitative (test code = 30262-2) 0.09 Negative WESLEY (test code = WESLEY) Non-reactive for HIV-1 antigen and HIV-1/HIV-2 antibodies. ?No laboratory evidence of HIV infection. ?Repeat in 2-4 weeks if acute HIV infection is suspected. [facility] CenterHepatitis B Surface [id number] 16:37:47 * Test Item Value Reference Range Interpretation Comme nts HBsAg Semi-Quantitative (maeve t code = 5195-3) 0.12 Negative [facility] CenterHbc Antibody (IgM & IgG)2024-02-23 16:37:42* Test Item Value Reference Range Interpretation Comme nts HBC (test code = 2087687532) Negative HBC Semi-Quantitative (test code = 0091813531) 3.51 [facility] CenterHbc Antibody (IgM & IgG)2024-02-23 16:37:42* Test Item Value Reference Range Interpretation Comme nts HBC (test code = 4471003951) Negative HBC Semi-Quantitative (test code = 0818352223) 3.51 [facility] CenterSedimentation [id number] 13:48:13* Test Item Value Reference Range Interpretation Comme nts ESR (test code = 51853-5) 23 2-30 Lab Interpretation (test cod e = 87611-7) Normal [facility] CenterSedimentation [id number] 13:48:13* Test Item Value Reference Range Interpretation Comme nts ESR (test code = 54093-1) 23 2-30 Lab Interpretation (test cod e = 93076-6) Normal [facility] CenterHepatic Function Panel (01124) (ALB,T.PRO,BILI T,BU/BC,ALT,AST,ALK PHOS)2024-02-22 19:51:55* Test Item Value Reference Range Interpretation Comme nts TOTAL BILI (test code = 8711769439) 1.0 mg/dL 0.1-1.1 BILI UNCON (test code = 9654689882) 0.4 mg/dL 0.1-1.1 BILI CONJ (test code = 8746397225) 0.0 mg/dL 0.0-0.3 T PROTEIN (test code = 0078804858) 8.5 g/dL 6.3-8.2 H ALBUMIN (test code = 7795071201) 4.9 g/dL 3.5-5.0 ALK PHOS (test code = 7339273519) 87 U/L 34-122 Slight hemolysis ALTv (test code = 1742-6) 77 U/L 5-35 H AST(SGOT) (test code = 1338007134) 57 U/L 13-40 H Slight hemolysis Lab Interpretation (test code = 38117-1) [facility] (ALB,T.PRO,BILI T,BU/BC,ALT,AST,ALK PHOS)2024-02-22 19:51:55* Test Item Value Reference Range Interpretation Comme nts TOTAL BILI (test code = 4369468919) 1.0 mg/dL 0.1-1.1 BILI UNCON (test code = 8878766436) 0.4 mg/dL 0.1-1.1 BILI CONJ (test code = 5839382777) 0.0 mg/dL 0.0-0.3 T PROTEIN (test code = 9446121350) 8.5 g/dL 6.3-8.2 H ALBUMIN (test code = 7671817497) 4.9 g/dL 3.5-5.0 ALK PHOS (test code = 9608642051) 87 U/L 34-122 Slight hemolysis ALTv (test code = 1742-6) 77 U/L 5-35 H AST(SGOT) (test code = 5537480480) 57 U/L 13-40 H Slight hemolysis Lab Interpretation (test code = 95422-6) Abnormal [facility] CHEST 2 [id number] 18:19:37ORDERING PROVIDER: ?COLIN ELMORE MORRICAL HISTORY: Hematemesis TECHNIQUE: Frontal and lateral views of the Chest. [facility] [id number] 18:19:37ORDERING PROVIDER: ?COLIN ELMORE MORRICAL HISTORY: Hematemesis TECHNIQUE: Frontal and lateral views of the Chest. COMPARISON: [facility] ABDOMEN [id number] 17:50:15ORDERING PROVIDER: COLIN MONGERICAL HISTORY: N/v/diarrhea worsening since cholecystectomy EXAM: Right upper quadrant ultrasound TECHNIQUE: Gilmore scale and color Doppler sonography of the rightupperquadrant performed. Spectral Doppler imaging of the liver obtained. Imageswere acquired for per manent storage in the patient's medical record. COMPARISON:none FINDINGS: The liver is homogeneous in echotexture without appreciable focal lesionsor intrahepatic ductal dilatation. Hepatopedal flow in the portal vein. Visualized aorta, IVC, and pancreas unremarkable. Gallbladder is surgically absent. Suspect fluid within the gallbladderfossa. Postcholecystectomy change of the common bile duct measuring 7 mm. The right kidney is normal in size The right kidney shows no evidence ofhydronephrosisor appreciable focal lesions. ?There is normal corticalthickness, contour and echogenicity.[facility] ABDOMEN [id number] 17:50:15ORDERING PROVIDER: COLIN ELMORE MORRICAL HISTORY: N/v/diarrhea worsening since cholecystectomy EXAM: Right upper quadrant ultrasound TECHNIQUE: Gilmore scale and color Doppler sonography of the right upperquadrant performed. Spectral Doppler imaging of the liver obtained. Imageswere acquired for permanent storage in the patient's medical record. COMPARISON:none FINDINGS: The liver is homogeneous in echotexture without appreciable focal lesionsor intrahepatic ductal dilatation. Hepatopedal flow in the portal vein. Visualized aorta, IVC, and pancreas unremarkable. Gallbladder is surgically absent. Suspect fluid within the gallbladderfossa. Postcholecystectomy change of the common bile duct measuring 7 mm. The right kidney is normal in size The right kidney shows no evidence ofhydronephrosisor appreciable focal lesions. ?There is normal corticalthickness, contour and echogenicity.[facility] [id number] 15:52:12* Test Item Value Reference Range Interpretation Comme nts TROPONIN I (test code = 1361050360) 0.006 ng/mL <=0.034 WESLEY (test code = WESLEY) Reference (Normal) Range (defined by the 99th percentile reference limit): <= 0.034 ng/mL Note: Cardiac troponin begins to rise 3-4 hours after the onset of ischemia. Repeat in 4-6 hours if the sample was drawn within 3-4 hours of the onset of the symptom and found normal. Diagnosis of myocardial injury is made with acute changes in cTn concentrations with at least one serial sample above the 99th percentile upper reference limit (URL), taken together with the patient's clinical presentation. Biotin has been reported to cause a negative bias, interpret results relative to patient's use of biotin. Lab Interpretation (test code = 92001-9) Normal [facility] [id number] 15:52:12* Test Item Value Reference Range Interpretation Comme nts TROPONIN I (test code = 2387468498) 0.006 ng/mL <=0.034 WESLEY (test code = WESLEY) Reference (Normal) Range (defined by the 99th percentile reference limit): <= 0.034 ng/mL Note: Cardiac troponin begins to rise 3-4 hours after the onset of ischemia. Repeat in 4-6 hours if the sample was drawn within 3-4 hours of the onset of the symptom and found normal. Diagnosis of myocardial injury is made with acute changes in cTn concentrations with at least one serial sample above the 99th percentile upper reference limit (URL), taken together with the patient's clinical presentation. Biotin has been reported to cause a negative bias, interpret results relative to patient's use of biotin. Lab Interpretation (test code = 84089-3) Normal [facility], [id number] 15:52:07* Test Item Value Reference Range Interpretation Comme nts PREG SERUM (test code = 5499672162) Negative WESLEY (test code = WESLEY) Less than 10 IU/L. ?If low titer or ectopic is suspected, resubmit specimen in 48-72 hours. [facility], [id number] 15:52:07* Test Item Value Reference Range Interpretation Comme nts PREG SERUM (test code = 5689303483) Negative WESLEY (test code = WESLEY) Less than 10 IU/L. ?If low titer or ectopic is suspected, resubmit specimen in 48-72 hours. [facility] 15:40:04* Test Item Value Reference Range Interpretation Comme [facility] LIPASE (test code = 4001853677) 69 U/L 0-220 Lab Interpretation (test cod e = 44190-1) Normal [facility] 15:40:04* Test Item Value Reference Range Interpretation Comme [facility] LIPASE (test code = 9354227207) 69 U/L 0-220 Lab Interpretation (test cod e = 45752-4) Normal [facility]. METABOLIC PANEL (17183)2024-02-22 15:40:03* Test Item Value Reference Range Interpretation Comme nts NA (test code = 0506829106) 137 mmol/L 135-145 K (test code = 2119610611) 3.9 mmol/L 3.5-5.0 Slight hemolysis CL (test code = 7108401012) 102 mmol/L 98-108 CO2 TOTAL (test code = 5115854531) 24 mmol/L 23-31 AGAP (test code = 0446218693) 11 2-16 BUN (test code = 5405215485) 9 mg/dL 7-23 Slight hemolysis GLUCOSE (test code = 6976784666) 94 mg/dL 70-110 CREATININE (test code = 2160-0) 0.70 mg/dL 0.50-1.04 TOTAL BILI (test code = 1985300850) 1.0 mg/dL 0.1-1.1 CALCIUM (test code = 7337745524) 9.3 mg/dL 8.6-10.6 T PROTEIN (test code = 2016225774) 8.4 g/dL 6.3-8.2 H ALBUMIN (test code = 3696528892) 5.0 g/dL 3.5-5.0 ALK PHOS (test code = 5802454667) 79 U/L 34-122 Slight hemolysis ALTv (test code = 1742-6) 74 U/L 5-35 H AST(SGOT) (test code = 7727834537) 57 U/L 13-40 H Slight hemolysis eGFR (test code = 43882-5) 120.2 mL/min/1.73m2 CKD-EPI eGFR (2020). Assuming creatinine has been stable day-to-day for at least three months, the eGFR indicates Category G1 (>= 90 mL/min/1.73 m2) Lab Interpretation (test code = 26134-5) Abnormal [facility]. METABOLIC PANEL (44924)2024-02-22 15:40:03* Test Item Value Reference Range Interpretation Comme nts NA (test code = 5221811838) 137 mmol/L 135-145 K (test code = 3436066230) 3.9 mmol/L 3.5-5.0 Slight hemolysis CL (test code = 8348741809) 102 mmol/L 98-108 CO2 TOTAL (test code = 4421027133) 24 mmol/L 23-31 AGAP (test code = 2533907166) 11 2-16 BUN (test code = 3335060150) 9 mg/dL 7-23 Slight hemolysis GLUCOSE (test code = 8668166845) 94 mg/dL 70-110 CREATININE (test code = 2160-0) 0.70 mg/dL 0.50-1.04 TOTAL BILI (test code = 1110817146) 1.0 mg/dL 0.1-1.1 CALCIUM (test code = 8043365289) 9.3 mg/dL 8.6-10.6 T PROTEIN (test code = 5949872698) 8.4 g/dL 6.3-8.2 H ALBUMIN (test code = 8619695873) 5.0 g/dL 3.5-5.0 ALK PHOS (test code = 9590922227) 79 U/L 34-122 Slight hemolysis ALTv (test code = 1742-6) 74 U/L 5-35 H AST(SGOT) (test code = 3963078903) 57 U/L 13-40 H Slight hemolysis eGFR (test code = 50939-0) 120.2 mL/min/1.73m2 CKD-EPI eGFR (2020). Assuming creatinine has been stable day-to-day for at least three months, the eGFR indicates Category G1 (>= 90 mL/min/1.73 m2) Lab Interpretation (test code = 18819-2) Abnormal [facility] WITH [id number] 15:35:41* Test Item Value Reference Range Interpretation Comme nts WBC (test code = 6690-2) 8.59 4.30-11.10 RBC (test code = 789-8) 5.01 3.93-5.25 HGB (test code = 718-7) 14.8 g/dL 11.6-15.0 HCT (test code = 4544-3) 43.2 % 35.7-45.2 MCV (test code = 787-2) 86.2 fL 80.6-95.5 MCH (test code = 785-6) 29.5 pg 25.9-32.8 MCHC (test code = 786-4) 34.3 g/dL 31.6-35.1 RDW-SD (test code = 04642-2) 41.3 fL 39.0-49.9 RDW-CV (test code = 788-0) 13.2 % 12.0-15.5 PLT (test code = 777-3) 329 166-358 MPV (test code = 18816-2) 9.9 fL 9.5-12.9 NRBC/100 WBC (test code = 1031182664) 0.0 0.0-10.0 NRBC x10^3 (test code = 1384093189) See_Comment [Automated MiNOW[employer]lessa ge] The system which generated this result transmitted reference range: 10*3/?L. The reference range was not used to interpret this result as normal/abnormal. GRAN MAT (NEUT) % (test code = 770-8) 66.5 % IMM GRAN % (test code = 6730641765) 0.30 % LYMPH % (test code = 736-9) 26.8 % MONO % (test code = 5905-5) 3.5 % EOS % (test code = 713-8) 2.3 % BASO % (test code = 706-2) 0.6 % GRAN MAT x10^3(ANC) (test code = 9159004428) 5.71 10*3/uL 1.88-7.09 IMM GRAN x10^3 (test code = 1288498534) 0.03 10*3/uL 0.00-0.06 LYMPH x10^3 (test code = 731-0) 2.30 10*3/uL 1.32-3.29 MONO x10^3 (test code = 742-7) 0.30 10*3/uL 0.33-0.92 L EOS x10^3 (test code = 711-2) 0.20 10*3/uL 0.03-0.39 BASO x10^3 (test code = 704-7) 0.05 10*3/uL 0.01-0.07 Lab Interpretation (test code = 50425-9) Abnormal [facility] WITH [id number] 15:35:41* Test Item Value Reference Range Interpretation Comme nts WBC (test code = 6690-2) 8.59 4.30-11.10 RBC (test code = 789-8) 5.01 3.93-5.25 HGB (test code = 718-7) 14.8 g/dL 11.6-15.0 HCT (test code = 4544-3) 43.2 % 35.7-45.2 MCV (test code = 787-2) 86.2 fL 80.6-95.5 MCH (test code = 785-6) 29.5 pg 25.9-32.8 MCHC (test code = 786-4) 34.3 g/dL 31.6-35.1 RDW-SD (test code = 61213-0) 41.3 fL 39.0-49.9 RDW-CV (test code = 788-0) 13.2 % 12.0-15.5 PLT (test code = 777-3) 329 166-358 MPV (test code = 21877-1) 9.9 fL 9.5-12.9 NRBC/100 WBC (test code = 0013314377) 0.0 0.0-10.0 NRBC x10^3 (test code = 0668080929) See_Comment [Automated messa ge] The system which generated this result transmitted reference range: 10*3/?L. The reference range was not used to interpret this result as normal/abnormal. GRAN MAT (NEUT) % (test code = 770-8) 66.5 % IMM GRAN % (test code = 4003908238) 0.30 % LYMPH % (test code = 736-9) 26.8 % MONO % (test code = 5905-5) 3.5 % EOS % (test code = 713-8) 2.3 % BASO % (test code = 706-2) 0.6 % GRAN MAT x10^3(ANC) (test code = 1676683702) 5.71 10*3/uL 1.88-7.09 IMM GRAN x10^3 (test code = 3145710254) 0.03 10*3/uL 0.00-0.06 LYMPH x10^3 (test code = 731-0) 2.30 10*3/uL 1.32-3.29 MONO x10^3 (test code = 742-7) 0.30 10*3/uL 0.33-0.92 L EOS x10^3 (test code = 711-2) 0.20 10*3/uL 0.03-0.39 BASO x10^3 (test code = 704-7) 0.05 10*3/uL 0.01-0.07 Lab Interpretation (test code = 73556-7) [facility]OL[facility] (24482)2023-05-19 17:55:27* Test Item Value Reference Range Interpretation Comme nts NA (test code = 6873841885) 138 mmol/L 135-145 K (test code = 7282117019) 3.8 mmol/L 3.5-5.0 CL (test code = 6877926943) 107 mmol/L 98-108 CO2 TOTAL (test code = 9080809164) 21 mmol/L 23-31 L AGAP (test code = 3231475722) 10 2-16 BUN (test code = 0985750110) 8 mg/dL 7-23 GLUCOSE (test code = 7367915948) 89 mg/dL 70-110 CREATININE (test code = 1566568214) 0.69 mg/dL 0.50-1.04 TOTAL BILI (test code = 0369498773) 0.7 mg/dL 0.1-1.1 CALCIUM (test code = 4323775939) 8.3 mg/dL 8.6-10.6 L T PROTEIN (test code = 1572256674) 7.3 g/dL 6.3-8.2 ALBUMIN (test code = 0202797287) 4.1 g/dL 3.5-5.0 ALK PHOS (test code = 3694850694) 107 U/L 34-122 ALTv (test code = 1742-6) 75 U/L 5-35 H AST(SGOT) (test code = 8275753282) 42 U/L 13-40 H eGFR (test code = 37850-6) 121.4 mL/min/1.73m2 CKD-EPI eGFR (2020). Assuming creatinine has been stable day-to-day for at least three months, the eGFR indicates Category G1 (>= 90 mL/min/1.73 m2) Lab Interpretation (test code = 44777-3) [facility] 16:39:24* Test Item Value Reference Range Interpretation Comme nts LIPASE (test code = 7933107233) 40 U/L 0-220 Lab Interpretation (test cod e = 07967-1) Normal [facility] [id number] 16:27:28EXAM: CT ABDOMEN PELVIS W CONTRAST HISTORY: [...] hypodensity isseen within the right gluteal soft tissue.[facility] CBC WITH [id number] 16:14:18* Test Item Value Reference Range Interpretation Comme nts WBC (test code = 6690-2) 6.32 See_Comment [Automated Outright] The system which generated this result transmitted reference range: 4.30 - 11.10 10*3/?L. The reference range was not used to interpret this result as normal/abnormal. RBC (test code = 789-8) 4.61 See_Comment [Automated Outright] The system which generated this result transmitted [...] 34.1 g/dL 31.6-35.1 RDW-SD (test code = 27706-4) 42.0 fL 39.0-49.9 RDW-CV (test code = 788-0) 13.0 % 12.0-15.5 PLT (test code = 777-3) 369 See_Comment H [Automated messa ge] The system which generated this result transmitted reference range: 166 - 358 10*3/?L. The reference range was not used to interpret this result as normal/abnormal. MPV (test code = 26564-2) 9.9 fL 9.5-12.9 NRBC/100 WBC (test code = 0994030236) 0.0 See_Comment [Automated [employer] ssage] The system which generated this result transmitted reference range: 0.0 - 10.0 /100 WBCs. The reference range was not used to interpret this result as normal/abnormal. NRBC x10^3 (test code = 7970393055) See_Comment [Automated messa ge] The system which generated this result transmitted reference range: 10*3/?L. The reference range was not used to interpret this result as normal/abnormal. GRAN MAT (NEUT) % (test code = 770-8) 64.8 % IMM GRAN % (test code = 1880555528) 0.50 % LYMPH % (test code = 736-9) 25.3 % MONO % (test code = 5905-5) 4.1 % EOS % (test code = 713-8) 4.7 % BASO % (test code = 706-2) 0.6 % GRAN MAT x10^3(ANC) (test code = 2333064551) 4.09 10*3/uL 1.88-7.09 IMM GRAN x10^3 (test code = 2290959623) 0.03 10*3/uL 0.00-0.06 LYMPH x10^3 (test code = 731-0) 1.60 10*3/uL 1.32-3.29 MONO x10^3 (test code = 742-7) 0.26 10*3/uL 0.33-0.92 L EOS x10^3 (test code = 711-2) 0.30 10*3/uL 0.03-0.39 BASO x10^3 (test code = 704-7) 0.04 10*3/uL 0.01-0.07 Lab Interpretation (test code = 72071-6) Abnormal [facility] [id number] 15:31:00* Test Item Value Reference Range Interpretation Comme nts POCT PREG (test code = 1605) Negative On board controls acceptable with C Line (test code = 3574) Yes POCT PREG LOT # (test code = 3575) [id number] POCT PREG TEST DATE ( test code = 3576) 2024-07-21 Lab Interpretation (test cod e = 91848-0) Normal [facility] WITH [id number] 04:28:47* Test Item Value Reference Range Interpretation [...] 34.0 g/dL 31.6-35.1 RDW-SD (test code = 01459-9) 40.3 fL 39.0-49.9 RDW-CV (test code = 788-0) 13.1 % 12.0-15.5 PLT (test code = 777-3) 307 See_Comment [Automated messa ge] The system which generated this result transmitted reference range: 166 - 358 10*3/?L. The reference range was not used to interpret this result as normal/abnormal. MPV (test code = 32590-0) 11.0 fL 9.5-12.9 NRBC/100 WBC (test code = 6288814292) 0.0 See_Comment [Automated me ssage] The system which generated this result transmitted reference range: 0.0 - 10.0 /100 WBCs. The reference range was not used to interpret this result as normal/abnormal. NRBC x10^3 (test code = 5596069825) See_Comment [Automated messa ge] The system which generated this result transmitted reference range: 10*3/?L. The reference range was not used to interpret this result as normal/abnormal. GRAN MAT (NEUT) % (test code = 770-8) 52.0 % IMM GRAN % (test code = 2341974241) 0.20 % LYMPH % (test code = 736-9) 38.0 % MONO % (test code = 5905-5) 4.6 % EOS % (test code = 713-8) 4.6 % BASO % (test code = 706-2) 0.6 % GRAN MAT x10^3(ANC) (test code = 4557482368) 2.84 10*3/uL 1.88-7.09 IMM GRAN x10^3 (test code = 5471156744) 0.00-0.06 LYMPH x10^3 (test code = 731-0) 2.07 10*3/uL 1.32-3.29 MONO x10^3 (test code = 742-7) 0.25 10*3/uL 0.33-0.92 L EOS x10^3 (test code = 711-2) 0.25 10*3/uL 0.03-0.39 BASO x10^3 (test code = 704-7) 0.03 10*3/uL 0.01-0.07 Lab Interpretation (test code = 88301-1) [facility] (82505)2023-01-12 04:12:43* Test Item Value Reference Range Interpretation Comme nts NA (test code = 6082102070) 137 mmol/L 135-145 K (test code = 9500739298) 3.4 mmol/L 3.5-5.0 L CL (test code = 4872029155) 104 mmol/L 98-108 CO2 TOTAL (test code = 8403999429) 24 mmol/L 23-31 AGAP (test code = 0994840341) 9 2-16 BUN (test code = 5661280230) 2 mg/dL 7-23 L GLUCOSE (test code = 3110513590) 92 mg/dL 70-110 CREATININE (test code = 2593995992) 0.80 mg/dL 0.50-1.04 TOTAL BILI (test code = 4486013154) 0.4 mg/dL 0.1-1.1 CALCIUM (test code = 2817242825) 8.4 mg/dL 8.6-10.6 L T PROTEIN (test code = 0348333087) 6.3 g/dL 6.3-8.2 ALBUMIN (test code = 0730222178) 3.7 g/dL 3.5-5.0 ALK PHOS (test code = 8403537655) 87 U/L 34-122 ALTv (test code = 1742-6) 27 U/L 5-35 AST(SGOT) (test code = 0279979269) 33 U/L 13-40 eGFR (test code = 4012233870) 86.0 mL/min/1.73m2 WESLEY (test code = WESLEY) [...] imaging tests). Lab Interpretation (test code = 22265-4) Abnormal [facility]. METABOLIC PANEL (12746)2023-01-12 04:12:43* Test Item Value Reference Range Interpretation Comme nts NA (test code = 8217671689) 137 mmol/L 135-145 K (test code = 9499599434) 3.4 mmol/L 3.5-5.0 L CL (test code = 2833519749) 104 mmol/L 98-108 CO2 TOTAL (test code = 1975498226) 24 mmol/L 23-31 AGAP (test code = 3098197763) 9 2-16 BUN (test code = 2407072644) 2 mg/dL 7-23 L GLUCOSE (test code = 4544226639) 92 mg/dL 70-110 CREATININE (test code = 1165906533) 0.80 mg/dL 0.50-1.04 TOTAL BILI (test code = 9566493186) 0.4 mg/dL 0.1-1.1 CALCIUM (test code = 4941159699) 8.4 mg/dL 8.6-10.6 L T PROTEIN (test code = 6842362130) 6.3 g/dL 6.3-8.2 ALBUMIN (test code = 8973307924) 3.7 g/dL 3.5-5.0 ALK PHOS (test code = 6237073187) 87 U/L 34-122 ALTv (test code = 1742-6) 27 U/L 5-35 AST(SGOT) (test code = 2351271145) 33 U/L 13-40 eGFR (test code = 1470671911) 86.0 mL/min/1.73m2 WESLEY (test code = WESLEY) [...] imaging tests). Lab Interpretation (test code = 04924-6) [facility] 04:07:04 BETA HCG<2.39Non- female and male patients: <5 mIU/mL01/11/2023 11:07 PM [facility] Gestational Age ?Range (mIU/mL) 1-10 ?Weeks ?92-86806401-43 Weeks ?96640-79331156-91 Weeks ?5669-02978822-72 Weeks ?1531-765734 Biotin has been reported to cause a negative bias, interpret results relative to patient's use of biotin. Gestational Age ?Range (mIU/mL) 1-10 ?Weeks ?23-35716509-21 Weeks ?65409-42933412-89 Weeks ?8280-09042261-07 Weeks?1531-178768 Biotin has been reported to cause a negative bias, interpret results relative to patient's use of biotin. Gestational Age ?Range (mIU/mL) 1-10 ?Weeks ?74-20321725-05 Weeks ?21662-62392465-83 Weeks ?6749-32427888-22 Weeks ?1531-934211 Biotin has been reported to cause a negative bias, interpretresults relative to patient's use of biotin.[facility]23-01-12 04:07:04BETA HCG<2.39Non- female and male patients: <5 mIU/mL01/11/2023 11:07 PM [facility] Gestational Age ?Range (mIU/mL) 1-10 ?Weeks ?35-94968920-07 Weeks ?16565-53986256-36 Weeks ?5046-15494523-06 Weeks ?1531-374112 Biotin has been reported to cause a negative bias, interpret results relative topatient's use of biotin. Gestational Age ?Range (mIU/mL) 1-10 ?Weeks ?10-62520965-55 Weeks ?11751-73699031-77 Weeks ?3140-30962710-25 Weeks?1531-050845 Biotin has been reported to cause a negative bias, interpret results relative to patient's use of biotin. Gestational Age ?Range (mIU/mL) 1-10 ?Weeks ?17-45886616-28 Weeks ?19380-76241825-07 Weeks ?0529-35384075-26 Weeks ?1539-254644 Biotin has been reported to cause a negative bias, interpretresults relative to patient's use of biotin.[facility] 03:22:58* Test Item Value Reference Range Interpretation Comme nts LIPASE (test code = 5157556580) 41 U/L 0-220 Lab Interpretation (test cod e = 87931-6) [facility] 03:22:58* Test Item Value Reference Range Interpretation Comme nts LIPASE (test code = 6173846538) 41 U/L 0-220 Lab Interpretation (test cod e = 71081-1) Normal [facility] [id number] 03:02:00* Test Item Value Reference Range Interpretation Comme nts POCT PREG (test code = 1605) Negative On board controls acceptable with C Line (test code = 3574) Yes POCT PREG LOT # (test code = 3575) [id number] POCT PREG TEST DATE ( test code = 3576) 05/15/2024 Lab Interpretation (test cod e = 41703-6) Normal [facility] [id number] 03:02:00* Test Item Value Reference Range Interpretation Comme nts POCT PREG (test code = 1605) Negative On board controls acceptable with C Line (test code = 3574) Yes POCT PREG LOT # (test code = 3575) [id number] POCT PREG TEST DATE ( test code = 3576) 05/15/2024 Lab Interpretation (test cod e = 66429-8) Normal [facility], [id number] 00:23:34* Test Item Value Reference Range Interpretation Comme nts PREG SERUM (test code = 0433979018) Negative WESLEY (test code = WESLEY) Less than 10 IU/L. ?If low titer or ectopic is suspected, resubmit specimen in 48-72 hours. [facility]. METABOLIC PANEL (15985)2022-07-31 23:58:12* Test Item Value Reference Range Interpretation Comme nts NA (test code = 5595715674) 140 mmol/L 135-145 K (test code = 9977367892) 3.6 mmol/L 3.5-5.0 CL (test code = 4366261282) 106 mmol/L 98-108 CO2 TOTAL (test code = 6550508574) 21 mmol/L 23-31 L AGAP (test code = 4921477818) 13 2-16 BUN (test code = 0401525432) 8 mg/dL 7-23 GLUCOSE (test code = 1920510724) 90 mg/dL 70-110 CREATININE (test code = 9484005571) 0.90 mg/dL 0.50-1.04 TOTAL BILI (test code = 9693429345) 0.5 mg/dL 0.1-1.1 CALCIUM (test code = 7873895309) 9.0 mg/dL 8.6-10.6 T PROTEIN (test code = 9139249279) 7.8 g/dL 6.3-8.2 ALBUMIN (test code = 1159236481) 4.6 g/dL 3.5-5.0 ALK PHOS (test code = 4095018111) 63 U/L 34-122 ALTv (test code = 1742-6) 23 U/L 5-35 AST(SGOT) (test code = 5908268861) 27 U/L 13-40 eGFR (test code = 9605143161) 75.1 mL/min/1.73m2 WESLEY (test code = WESLEY) [...] imaging tests). Lab Interpretation (test code = 81433-1) [facility] Test Item Value Reference Range Interpretation Comme nts LIPASE (test code = 7175445764) 55 U/L 0-220 Lab Interpretation (test cod e = 11049-8) [id number] 23:47:31* Test Item Value Reference Range Interpretation Comme nts WBC (test code = 6690-2) 5.64 See_Comment [Automated [employer]] The system which generated this result transmitted reference range: 4.30 - 11.10 10*3/?L. The reference range was not used to interpret this result as normal/abnormal. RBC (test code = 789-8) 4.51 See_Comment [Automated [employer]] The system which generated this result transmitted [...] 32.6 g/dL 31.6-35.1 RDW-SD (test code = 27361-1) 42.5 fL 39.0-49.9 RDW-CV (test code = 788-0) 13.0 % 12.0-15.5 PLT (test code = 777-3) 339 See_Comment [Automated messa ge] The system which generated this result transmitted reference range: 166 - 358 10*3/?L. The reference range was not used to interpret this result as normal/abnormal. MPV (test code = 29543-1) 9.4 fL 9.5-12.9 L NRBC/100 WBC (test code = 1874276017) 0.0 See_Comment [Automated me ssage] The system which generated this result transmitted reference range: 0.0 - 10.0 /100 WBCs. The reference range was not used to interpret this result as normal/abnormal. NRBC x10^3 (test code = 6303767257) See_Comment [Automated messa ge] The system which generated this result transmitted reference range: 10*3/?L. The reference range was not used to interpret this result as normal/abnormal. GRAN MAT (NEUT) % (test code = 770-8) 51.2 % IMM GRAN % (test code = 0851355512) 0.20 % LYMPH % (test code = 736-9) 36.5 % MONO % (test code = 5905-5) 5.7 % EOS % (test code = 713-8) 5.9 % BASO % (test code = 706-2) 0.5 % GRAN MAT x10^3(ANC) (test code = 1288719419) 2.89 10*3/uL 1.88-7.09 IMM GRAN x10^3 (test code = 4323928711) 0.00-0.06 LYMPH x10^3 (test code = 731-0) 2.06 10*3/uL 1.32-3.29 MONO x10^3 (test code = 742-7) 0.32 10*3/uL 0.33-0.92 L EOS x10^3 (test code = 711-2) 0.33 10*3/uL 0.03-0.39 BASO x10^3 (test code = 704-7) 0.03 10*3/uL 0.01-0.07 Lab Interpretation (test code = 68674-1) Abnormal [facility] MOLECULAR [id number] 16:14:38* Test Item Value Reference Range Interpretation Comme nts POCT Molecular Strep (test c ode = 59963-9) Negative Negative Lab Interpretation (test cod e = 66552-7) [facility] (81670[facility]2022-[facility]-05 19:35:37* Test Item Value Reference Range Interpretation Comme nts NA (test code = 4085868696) 139 mmol/L 135-145 K (test code = 0847098602) 4.4 mmol/L 3.5-5.0 CL (test code = 2673929944) 104 mmol/L 98-108 CO2 TOTAL (test code = 4103374167) 22 mmol/L 23-31 L AGAP (test code = 8186049762) 2-16 BUN (test code = 6918977565) 11 mg/dL 7-23 GLUCOSE (test code = 7998423373) 95 mg/dL 70-110 CREATININE (test code = 5168267144) 0.71 mg/dL 0.50-1.04 TOTAL BILI (test code = 9746403327) 0.4 mg/dL 0.1-1.1 CALCIUM (test code = 9137039416) 9.1 mg/dL 8.6-10.6 T PROTEIN (test code = 9927747927) 7.9 g/dL 6.3-8.2 ALBUMIN (test code = 5197539988) 4.7 g/dL 3.5-5.0 ALK PHOS (test code = 8519437136) 114 U/L 34-122 ALTv (test code = 1742-6) 21 U/L 5-35 AST(SGOT) (test code = 8442415779) 21 U/L 13-40 eGFR (test code = 6642262503) mL/min/1.73m2 WESLEY (test code = WESLEY) Association [...] imaging tests). Lab Interpretation (test code = 47143-9) Abnormal [facility] WITH [id number] 19:25:37* Test Item Value Reference Range Interpretation Comme nts WBC (test code = 6690-2) See_Comment [[employer]] The system which generated this result transmitted reference range: 4.30 - 11.10 10*3/?L. The reference range was not used to interpret this result as normal/abnormal. RBC (test code = 789-8) See_Comment [[employer]] The system which generated this result transmitted [...] 32.9 g/dL 31.6-35.1 RDW-SD (test code = 94338-4) 41.7 fL 39.0-49.9 RDW-CV (test code = 788-0) 12.7 % 12.0-15.5 PLT (test code = 777-3) See_Comment H [Automated messa ge] The system which generated this result transmitted reference range: 166 - 358 10*3/?L. The reference range was not used to interpret this result as normal/abnormal. MPV (test code = 82030-8) 8.8 fL 9.5-12.9 L NRBC/100 WBC (test code = 5797204427) See_Comment [Automated [employer] ssage] The system which generated this result transmitted reference range: 0.0 - 10.0 /100 WBCs. The reference range was not used to interpret this result as normal/abnormal. NRBC x10^3 (test code = 6486507126) See_Comment [Automated messa ge] The system which generated this result transmitted reference range: 10*3/?L. The reference range was not used to interpret this result as normal/abnormal. GRAN MAT (NEUT) % (test code = 770-8) 56.1 % IMM GRAN % (test code = 6719435979) 0.40 % LYMPH % (test code = 736-9) 29.9 % MONO % (test code = 5905-5) 5.4 % EOS % (test code = 713-8) 7.8 % BASO % (test code = 706-2) 0.4 % GRAN MAT x10^3(ANC) (test code = 3405867099) 3.75 10*3/uL 1.88-7.09 IMM GRAN x10^3 (test code = 8642899071) 0.03 10*3/uL 0.00-0.06 LYMPH x10^3 (test code = 731-0) 2.00 10*3/uL 1.32-3.29 MONO x10^3 (test code = 742-7) 0.36 10*3/uL 0.33-0.92 EOS x10^3 (test code = 711-2) 0.52 10*3/uL 0.03-0.39 H BASO x10^3 (test code = 704-7) 0.03 10*3/uL 0.01-0.07 Lab Interpretation (test code = 60033-5) Abnormal [facility] [id number] 19:00:00* Test Item Value Reference Range Interpretation Comme nts POCT PREG (test code = 1605) negative On board controls acceptable with C Line (test code = 3574) present POCT PREG LOT # (test code = 3575) [id number] POCT PREG TEST DATE ( test code = 3576) 08-11-2023 Lab Interpretation (test cod e = 56229-7) Normal [facility] WITH [id number] 15:21:11* Test Item Value Reference Range Interpretation [...] 33.0 g/dL 31.6-35.1 RDW-SD (test code = 06450-3) 42.6 fL 39.0-49.9 RDW-CV (test code = 788-0) 12.9 % 12.0-15.5 PLT (test code = 777-3) See_Comment H [Automated messa ge] The system which generated this result transmitted reference range: 166 - 358 10*3/?L. The reference range was not used to interpret this result as normal/abnormal. MPV (test code = 96244-8) 9.1 fL 9.5-12.9 L NRBC/100 WBC (test code = 1141641833) See_Comment [Automated me ssage] The system which generated this result transmitted reference range: 0.0 - 10.0 /100 WBCs. The reference range was not used to interpret this result as normal/abnormal. NRBC x10^3 (test code = 6300522527) See_Comment [Automated messa ge] The system which generated this result transmitted reference range: 10*3/?L. The reference range was not used to interpret this result as normal/abnormal. GRAN MAT (NEUT) % (test code = 770-8) 56.8 % IMM GRAN % (test code = 8325536769) 0.30 % LYMPH % (test code = 736-9) 29.5 % MONO % (test code = 5905-5) 4.3 % EOS % (test code = 713-8) 8.3 % BASO % (test code = 706-2) 0.8 % GRAN MAT x10^3(ANC) (test code = 0283842209) 3.57 10*3/uL 1.88-7.09 IMM GRAN x10^3 (test code = 5018150697) 0.00-0.06 LYMPH x10^3 (test code = 731-0) 1.85 10*3/uL 1.32-3.29 MONO x10^3 (test code = 742-7) 0.27 10*3/uL 0.33-0.92 L EOS x10^3 (test code = 711-2) 0.52 10*3/uL 0.03-0.39 H BASO x10^3 (test code = 704-7) 0.05 10*3/uL 0.01-0.07 Lab Interpretation (test code = 47946-3) [facility]41719[facility]2022-04-26 15:12:13* Test Item Value Reference Range Interpretation Comme nts NA (test code = 3566778976) 141 mmol/L 135-145 K (test code = 7701051779) 3.4 mmol/L 3.5-5.0 L CL (test code = 4315392645) 104 mmol/L 98-108 CO2 TOTAL (test code = 4880836782) 23 mmol/L 23-31 AGAP (test code = 0531679196) 2-16 BUN (test code = 2572387176) 9 mg/dL 7-23 GLUCOSE (test code = 4674098310) 101 mg/dL 70-110 CREATININE (test code = 7948059658) 0.82 mg/dL 0.50-1.04 TOTAL BILI (test code = 2497109764) 0.7 mg/dL 0.1-1.1 CALCIUM (test code = 2941482638) 9.3 mg/dL 8.6-10.6 T PROTEIN (test code = 3118990422) 8.1 g/dL 6.3-8.2 ALBUMIN (test code = 4655899900) 4.7 g/dL 3.5-5.0 ALK PHOS (test code = 4386651588) 108 U/L 34-122 ALTv (test code = 1742-6) 24 U/L 5-35 AST(SGOT) (test code = 7823120395) 49 U/L 13-40 H eGFR (test code = 4317823650) mL/min/1.73m2 WESLEY (test code = WESLEY) Association [...] imaging tests). Lab Interpretation (test code = 28740-7) Abnormal [facility] [id number] 14:45:00* Test Item Value Reference Range Interpretation Comme nts POCT PREG (test code = 1605) negative On board controls acceptable with C Line (test code = 3574) present POCT PREG LOT # (test code = 3575) [id number] POCT PREG TEST DATE ( test code = 3576) 08/11/2023 Lab Interpretation (test cod e = 74219-5) Normal [facility] [id number] 01:22:00* Test Item Value Reference Range Interpretation Comme [facility] POCT PREG (test code = 1605) Negative On board controls acceptable with C Line (test code = 3574) Present POCT PREG LOT # (test code = 3575) [id number] POCT PREG TEST DATE ( test code = 3576) 08-11-2023 Lab Interpretation (test cod e = 10488-7) Normal [facility] METABOLIC PANEL (NA, K, CL, CO2, GLUCOSE, BUN, CREATININE, CA)2022-04-07 23:01:10* Test Item Value Reference Range Interpretation Comme [facility] NA (test code = 7501414714) 138 mmol/L 135-145 K (test code = 7615288295) 4.3 mmol/L 3.5-5.0 CL (test code = 5545119342) 107 mmol/L 98-108 CO2 TOTAL (test code = 1228562840) 20 mmol/L 23-31 L AGAP (test code = 8461898614) 2-16 BUN (test code = 3724190036) 9 mg/dL 7-23 GLUCOSE (test code = 7450530264) 204 mg/dL 70-110 H CREATININE (test code = 4509730100) 0.74 mg/dL 0.50-1.04 CALCIUM (test code = 7644713765) 9.1 mg/dL 8.6-10.6 eGFR (test code = 9556727637) mL/min/1.73m2 WESLEY (test code = WESLEY) Association [...] imaging tests). Lab Interpretation (test code = 92268-7) Abnormal [facility] WITH [id number] 22:57:34* Test Item Value Reference Range Interpretation Comme nts WBC (test code = 6690-2) See_Comment [Automated [employer]] The system which generated this result transmitted reference range: 4.30 - 11.10 10*3/?L. The reference range was not used to interpret this result as normal/abnormal. RBC (test code = 789-8) See_Comment [Automated [employer]] The system which generated this result transmitted [...] 33.5 g/dL 31.6-35.1 RDW-SD (test code = 90474-2) 42.9 fL 39.0-49.9 RDW-CV (test code = 788-0) 13.4 % 12.0-15.5 PLT (test code = 777-3) See_Comment H [Automated messa ge] The system which generated this result transmitted reference range: 166 - 358 10*3/?L. The reference range was not used to interpret this result as normal/abnormal. MPV (test code = 15811-3) 8.9 fL 9.5-12.9 L NRBC/100 WBC (test code = 8509927403) See_Comment [Automated [employer] ssage] The system which generated this result transmitted reference range: 0.0 - 10.0 /100 WBCs. The reference range was not used to interpret this result as normal/abnormal. NRBC x10^3 (test code = 6181900618) See_Comment [Automated messa ge] The system which generated this result transmitted reference range: 10*3/?L. The reference range was not used to interpret this result as normal/abnormal. GRAN MAT (NEUT) % (test code = 770-8) 88.7 % IMM GRAN % (test code = 0117456802) 0.70 % LYMPH % (test code = 736-9) 9.4 % MONO % (test code = 5905-5) 0.9 % EOS % (test code = 713-8) 0.1 % BASO % (test code = 706-2) 0.2 % GRAN MAT x10^3(ANC) (test code = 6950967984) 7.81 10*3/uL 1.88-7.09 H IMM GRAN x10^3 (test code = 3155229748) 0.06 10*3/uL 0.00-0.06 LYMPH x10^3 (test code = 731-0) 0.83 10*3/uL 1.32-3.29 L MONO x10^3 (test code = 742-7) 0.08 10*3/uL 0.33-0.92 L EOS x10^3 (test code = 711-2) 0.03-0.39 L BASO x10^3 (test code = 704-7) 0.01-0.07 Lab Interpretation (test code = 86667-8) Abnormal [facility] [id number] 14:07:00* Test Item Value Reference Range Interpretation Comme nts POCT PREG (test code = 1605) negative On board controls acceptable with C Line (test code = 3574) present POCT PREG LOT # (test code = 3575) [id number] POCT PREG TEST DATE ( test code = 3576) 08/11/2023 Lab Interpretation (test cod e = 58805-1) Normal [facility] [id number] 13:52:00* Test Item Value Reference Range Interpretation Comme nts POCT PREG (test code = 1605) negative On board controls acceptable with C Line (test code = 3574) present Lab Interpretation (test cod e = 03956-6) Normal [facility] [id number] 14:59:00* Test Item Value Reference Range Interpretation Comme nts POCT PREG (test code = 1605) negative On board controls acceptable with C Line (test code = 3574) yes POCT PREG LOT # (test code = 3575) [id number] POCT PREG TEST DATE ( test code = 3576) 07/11/2023 Lab Interpretation (test cod e = 59427-8) Normal [facility]. METABOLIC PANEL (32199)2022 17:51:43* Test Item Value Reference Range Interpretation Comme nts NA (test code = 1505820295) 139 mmol/L 135-145 K (test code = 1599135607) 4.1 mmol/L 3.5-5 CL (test code = 6377870152) 104 mmol/L 98-108 CO2 TOTAL (test code = 8992941824) 22 mmol/L 23-31 L AGAP (test code = 9164222691) 2-16 BUN (test code = 7842345679) 7 mg/dL 7-23 GLUCOSE (test code = 1249555955) 114 mg/dL 70-110 H CREATININE (test code = 0268233078) 0.69 mg/dL 0.5-1.04 TOTAL BILI (test code = 4020754233) 0.4 mg/dL 0.1-1.1 CALCIUM (test code = 8514049240) 9.7 mg/dL 8.6-10.6 T PROTEIN (test code = 9640340506) 7.2 g/dL 6.3-8.2 ALBUMIN (test code = 5357257650) 4.6 g/dL 3.5-5 ALK PHOS (test code = 3690760089) 65 U/L 34-122 ALTv (test code = 1742-6) 15 U/L 5-35 AST(SGOT) (test code = 3960889377) 19 U/L 13-40 eGFR (test code = 1203162488) mL/min/1.73m2 WESLEY (test code = WESLEY) Association [...] imaging tests). Lab Interpretation (test code = 11513-9) Abnormal [facility] WITH [id number] 17:40:24* Test Item Value Reference Range Interpretation [...] 33.3 g/dL 31.6-35.1 RDW-SD (test code = 54242-3) 43.1 fL 39-49.9 RDW-CV (test code = 788-0) 13.2 % 12-15.5 PLT (test code = 777-3) See_Comment [Automated [employer]] The system which generated this result transmitted reference range: 166 - 358 10*3/?L. The reference range was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 gas present 4) 12/27/22 - CT Head, C spine, T/A/P: loculated fluid collection 3.8 x 3.0 cm, thought to be seroma 5) 12/29/22 - RUQ US: heterogenous fluid collection 5.1 x 2.4 cm, CBD WNL, no intrahepatic duct dilation Unable to determine if collection ever aspirated, no microbiology results seen. IMAGING - reviewed, pertinent results as below: CTAP w. Contrast 01/11/23 IMPRESSION 1. Status post cholecystectomy. Within the gallbladder fossa there is a 2.5 x 2.6 x 4.6 cm fluid collection containing small air foci concerning for abscess. 2. 3 mm nonobstructing right renal stone CTAP w/ contrast 05/19/23 EXAM: CT ABDOMEN PELVIS W CONTRAST HISTORY: 28 years-old Female: epigastric pain TECHNIQUE: Contiguous axial imaging from the level of the lung bases through the proximal thighs was performed with intravenous contrast. Coronal and sagittal reconstructions were obtained. COMPARISON: CT abdomen pelvis dated 01/11/2023 FINDINGS: LOWER THORAX: The lung bases are clear. No pleural or pericardial effusion. LIVER AND BILIARY: The liver is normal in size and contour. No focal hepatic lesion is seen. Prior cholecystectomy. No intra or extrahepatic biliary ductal dilation is visualized. PANCREAS: Normal morphology and enhancement. No ductal dilation or masses are visualized. SPLEEN: The spleen is borderline enlarged, measures up to 12.5 cm. A subcentimeter round hypodensity within the spleen parenchyma is too small to characterize. ADRENAL GLANDS: No adrenal masses are seen. KIDNEYS, URETERS, AND BLADDER: Normal renal size, morphology, and enhancement. No solid masses. A 4 mm nonobstructing renal stone is seen in the right superior calyx. No hydronephrosis. The bladder appears unremarkable. REPRODUCTIVE ORGANS: Normal reproductive organs. GI TRACT AND PERITONEUM: No dilation or bowel wall thickening is seen. The appendix appears unremarkable. No intra-abdominal free air or fluid collection is visualized. Moderate to large amount of formed stool are seen within the entire colon and rectum. VESSELS: Unremarkable. No abdominal aortic aneurysm. LYMPH NODES: No lymphadenopathy. BONES AND SOFT TISSUES: No aggressive osseous lesion. A small fat-containing umbilical hernia is present. A subcentimeter hypodensity is seen within the right gluteal soft tissue. IMPRESSION No acute findings of abdomen and pelvis. Borderline splenomegaly. Nonobstructing right renal calculus. Prior cholecystectomy and . ASSESSMENT/PLAN Nikko Dyson is a 29 year old female with PMH as listed above, admitted to the hospital with: Intractable Nausea/Vomiting Hematemesis 2/2 above Abdominal pain Diarrhea Hematochezia Weight loss ~30 lbs (1 year) GB fluid collection Patient presenting with constellation of GI symptoms. poor po intake 2/2 intractable nausea,vomiting ongoing for 1 year with worsening of sx over 2 weeks. Previous hx of GB fluid collection requiring peritoneal drainage. Current US abdomen shows possible minimal fluid in the gallbladder fossa. Loose stool with nickel sizes clots of blood, suspicious for gastroenteritis however, no exposures. Hematemesis likely 2/2 retching from vomiting. At this time, will obtain stool studies and obtain CT abdomen with contrast to further assess fluid collect in GB fossa (pre-medication ordered). Patient is currently HDS showing no signs of infection per lab work. - admit to [facility] - CTAP w/ contrast (premedication ordered) - fecal PCR, UDS, Flu, covid RSV - CLD - PPI IV daily - phenergen prn Weight loss Breast cancer (s/p chemoradiation 2021) Patient with noted 30 lbs weight per chart review. Given hx of malignancy, with blood in stool patient warrants further work up which can be pursued as an outpatient basis - monitor - GI follow up outpt Bipolar disorder Migraines - monitor - off therapy Pain ppx: morphine DVT ppx: heparin GI ppx: PPI Code Status: FULL Naty Mensah DO Internal Medicine PGY3 [facility] Team Associated attestation - Hany Bo MD - 02/23/2024 3:22 PM CDT I personally examined the patient on 02/23/[address] Mensah's resident note as written. Intractable n/v, diarrhea, and abd pain with inability to tolerate po. Noted abnormal LFTs that warrant further evaluation. I actively participated in the decision-making process. Please see the resident's note for additional details. [facility] 2023-01-12 01:05:04 01/12/23 1:05 AM Please refer to consult note written by Rodolfo Riggins DO on 01/12/23 for complete H&P. Rodolfo Riggins DO PGY-2 Surgery Resident Associated attestation - Mirella Vergara MD - 01/12/2023 1:47 AM CDT Agree [facility]
[2024-05-10 08:20] LABS: Specific Gravity 1.029 (1.005-1.030)
[2024-05-10 08:24] LABS: Calcium Oxalate Crystals- Ur Few /HPF (None Seen); Specific Gravity 1.029 (1.005-1.030); Sqamous Epithelial 20-50 /HPF (None Seen); Urine Bacteria None Seen /HPF (<20); Urine Bilirubin NEGATIVE (Negative); Urine Blood 3+ (OVER) (Negative); Urine Clarity Extremely Turbid (Clear); Urine Color Yellow (Yellow); Urine Culture Reflex Order NOT NEEDED; Urine Glucose NEGATIVE (Negative); Urine Ketones TRACE (Negative); Urine Microscopic Reflex YN ORDER UMIC; Urine Mucus 2+ /HPF (None Seen); Urine Nitrite NEGATIVE (Negative); Urine Protein 1+ (Negative); Urine Urobilinogen Normal (Normal); Urine pH 6.5 (5.0-7.0)
[2024-05-10] MEDS ORDERED: FENTANYL CITR 100 MCG/2 ML ONE ×2 (08:26→10:13)
[2024-05-10 08:28] LABS: Absolute Eosinophils 0.6 K/uL (0-0.5); Absolute Lymphocytes (CBC) 1.7 K/uL (0.7-4.9); Absolute Monocytes 0.3 K/uL (0.1-1.3); Absolute Neutrophil 3.3 K/uL (1.8-8.0); Basophils % 0.5 % (0-1.3); Eosinophils % 9.6 % (0-4.4); Hematocrit 36.2 % (36.0-45.0); Hemoglobin 12.1 g/dL (12.0-15.0); Lymphocytes % 29.6 % (15.3-44.8); MCHC 33.4 g/dL (32.0-36.0); MCV 86.9 fL (80-100); MPV 7.6 fL (7.6-11.3); Monocytes % 4.6 % (3.3-12.3); Neutrophils % 55.7 % (41.7-73.7); Platelets 348 thou/uL (152-406); RBC Red Blood Cell Count 4.17 M/uL (3.86-4.86); Red Cell Distribution Width 13.2 % (12.1-15.2)
[2024-05-10 08:44] LABS: Albumin 3.4 g/dL (3.4-5.0); Albumin/Globulin Ratio 0.9 (1.1-1.8); Anion Gap 10.8 mEq/L (5.0-15.0); Bilirubin Total 0.2 mg/dL (0.2-1.0); Globulin 3.7 g/dL (2.3-3.5); Potassium 3.8 mEq/L (3.5-5.1); Protein, Total 7.1 g/dL (6.4-8.2)
--- NOTE | 2024-05-10 09:21 | RAD REPORT ---
EXAMINATION: CT ABDOMEN AND PELVIS WITHOUT CONTRAST CLINICAL INDICATION: Female, 29 years old.ABD PAIN TECHNIQUE: CT abdomen and pelvis was performed, without IV contrast, as per department protocol. Axia l, sagittal and coronal reconstructions were obtained. One or more of the following dose reduction techniques were used: Automated exposure control, adjustment of the mA and/or kV according to the pat ient size, and/or iterative reconstruction. Unless otherwise specified, incidental findings do not require dedicated imaging follow-up. [id number]. IV CONTRAST: Not administered. COMPARISON: 03/09/2024 FINDINGS: The lack of intravenous contrast limits the sensitivity of this exam for evaluation of solid visceral organs, vascular structures, and retroperitoneum. LOWER CHEST: No acute process identified.No significant pericardial effusion. Mild circumferential th ickening of the distal esophagus which could reflect esophagitis. UPPER GI: No significant abnormality. LIVER: No significant focal abnormality. GALLBLADDER/BILE DUCTS: Cholecystectomy. No significant biliary ductal dilatation.? PANCREAS: No mass, ductal dilation, or brayan-pancreatic fluid. SPLEEN: Unremarkable. ADRENALS: No adrenal masses. KIDNEYS AND URETERS: No hydronephrosis.No suspicious renal mass.5 mm stone in the upper pole right ki dney. ABDOMINAL AORTA AND OTHER VESSELS: Normal caliber aorta and IVC. PERITONEUM: No abnormal free fluid. No free air. LYMPH NODES: No pathologic lymphadenopathy. ABDOMINAL WALL: Small fat containing umbilical hernia. SMALL BOWEL/COLON: Mild wall thickening at the distal descending colon through the rectum.Normal appe ndix. URINARY BLADDER: Decompressed, not well assessed. REPRODUCTIVE ORGANS: No pathologic process. MUSCULOSKELETAL: No acute or suspicious osseous abnormality. ADDITIONAL FINDINGS: None. IMPRESSION: 1. Mild thickening of the descending colon extending to the rectum could reflect a mild colitis. Norm al appendix. 2. Nonobstructive right nephrolithiasis.
--- NOTE | 2024-05-10 09:38 | RAD REPORT ---
Pelvis Complete CLINICAL INDICATION: Female 29 years old R/O TORSION TECHNIQUE: Real-time ultrasonography of the pelvis was performed transvaginally and transabdominally. Color and spectral Doppler evaluation of the ovaries was performed. [id number]. COMPARISON: Same day CT FINDINGS: UTERUS AND CERVIX: The uterus is normal. No masses seen. Small nabothian cysts at the cervix. The endometrium is normal,0.2 cm in thickness. RIGHT OVARY: Normal The right ovary measures 3.9 cc Normal color and spectral Doppler evaluation of t he right ovary.. LEFT OVARY: Normal The left ovary measures 5.8 cc Normal Color and spectral Doppler evaluation of t he left ovary.. FREE FLUID: No free fluid. IMPRESSION: 1. No acute or significant abnormality identified. 2. Bilateral ovarian blood flow.
[2024-05-10] MEDS ORDERED: metroNIDAZOLE 500 MG TABLET ONE (10:14)
[2024-05-10] MEDS ORDERED: CIPROFLOXACIN HCL 500 MG TAB ONE (10:14)
--- NOTE | 2024-05-10 10:26 | EDPHYS ---
Physician Documentation [facility] Name: Natanael Dyson Age: 29 yrs Sex: Female : 1995 Arrival Date: 05/10/2024 Time: 07:28 Bed 5 Private MD: ED Physician Harjit Samson HPI: 05/10 08:45 This 29 yrs old Female presents to ER via Ambulatory with complaints of Abdominal Pain. rn 08:45 The patient presents with abdominal pain in the left lower quadrant. Onset: The rn symptoms/episode began/occurred yesterday. The symptoms do not radiate. Associated signs and symptoms: Pertinent positives: nausea, Pertinent negatives: dysuria, fever, hematuria, vaginal discharge. Modifying factors: The symptoms are alleviated by nothing, the symptoms are aggravated by touching the area. Severity of pain: At its worst the pain was moderate in the emergency department the pain is unchanged. The patient has not experienced similar symptoms in the past. Patient reports left lower quadrant abdominal pain associated with nausea and chronic diarrhea. Patient states this feels different from her previous chronic abdominal pain with H. pylori and gastritis. Also does not feel like a kidney stone. No vaginal discharge. No urinary symptoms. Patient has had tubal ligation 3 years ago.. Historical: - Allergies: 07:40 Compazine; ss 07:40 Haldol; ss 07:40 Iodine; ss 07:40 Morphine; ss 07:40 NSAIDS NON STEROIDAL ANTI INFLAMMATORY DRUG; ss 07:40 Reglan; ss 07:40 Toradol; ss - PMHx: 07:40 Anxiety; breast cancer; depressive disorder; Kidney stone; nephritis; ss - PSHx: 07:40 Cholecystectomy; Ligation of fallopian tube; ss - Family history:: not pertinent. - Hospitalizations: : No recent hospitalization is reported. ROS: 08:45 Constitutional: Negative for fever, chills, and weight loss, Cardiovascular: Negative rn for chest pain, palpitations, and edema, Respiratory: Negative for shortness of breath, cough, wheezing, and pleuritic chest pain, Abdomen/GI: Positive for abdominal pain with nausea Back: Negative for injury and pain, : Negative for injury, bleeding, discharge, and swelling, MS/Extremity: Negative for injury and deformity, Exam: 08:45 Constitutional: This is a well developed, well nourished patient who is awake, alert, rn and in no acute distress. Cardiovascular: Regular rate and rhythm . No pulse deficits. Respiratory: No increased work of breathing, no retractions or nasal flaring. Abdomen/GI: Soft, left lower quadrant tenderness without rebound or guarding Skin: No cyanosis Neuro: Awake and alert, GCS 15 Vital Signs: 07:38 Pulse 93; Resp 18; Temp 97.7(O); Pulse Ox 98% ; Weight 58.97 kg; Height 5 ft. 1 in. ; ss 07:43 BP 106 / 72; ss 08:33 BP 132 / 83; Pulse 84; Resp 16; Pulse Ox 97% on R/A; iw 07:38 Body Mass Index 24.56 (58.97 kg, 154.94 cm) ss MDM: 07:32 Medical Screening Exam initiated rn 10:25 Differential diagnosis: bowel obstruction, diverticulitis, gastritis, non-specific abd rn pain, Ovarian Torsion, pancreatitis, Peptic Ulcer Disease, Perf. Duodenal Ulcer, Perf. Gastric Ulcer, Ureterolithiasis. Data reviewed: vital signs, nurses notes, lab test result(s), radiologic studies, CT scan, ultrasound, and as a result, I will discharge patient. Counseling: I had a detailed discussion with the patient and/or guardian regarding the historical points, exam findings, and any diagnostic results supporting the discharge/admit diagnosis, lab results, radiology results, the need for outpatient follow up, to return to the emergency department if symptoms worsen or persist or if there are any questions or concerns that arise at home. Special discussion: Based on the patient's Hx, exam, and Dx evaluation, there is no indication for emergent surgery or inpatient Tx. It is understood by the patient/guardian that if the Sx's persist or worsen they need to return immediately for re-evaluation. I discussed with the patient/guardian in detail that at this point there is no indication for admission to the hospital. It is understood, however, that if the symptoms persist or worsen the patient needs to return immediately for re-evaluation. 05/10 07:53 Order name: CBC with Diff; Complete Time: 09:55 rn 05/10 07:53 Order name: CMP; Complete Time: :55 rn 05/10 07:53 Order name: Lipase; Complete Time: : rn 05/10 07:53 Order name: Test, Urine; Complete Time: : rn 05/10 07:53 Order name: Urinalysis w/ reflexes; Complete Time: 09:55 rn 05/10 08:39 Order name: Pelvis Complete; Complete Time: 09:55 EDMS 05/10 08:48 Order name: Abdomen ; Complete Time: 09:55 EDMS 05/10 07:53 Order name: IV Saline Lock; Complete Time: 08:31 rn 05/10 07:53 Order name: Labs collected and sent; Complete Time: 08:31 rn Administered Medications: 08:29 Drug: fentaNYL (PF) IVP 25 mcg IVP once Route: IVP; Site: left hand; iw 10:20 Drug: Ciprofloxacin PO 500 mg PO once Route: PO; iw 10:20 Drug: metroNIDAZOLE PO 500 mg PO once Route: PO; iw 10:20 Drug: fentaNYL (PF) IVP 25 mcg IVP once Route: IVP; Site: left hand; iw Disposition Summary: 05/10/24 10:25 Discharge Ordered Notes: Location: Home rn Problem: new rn Symptoms: have improved rn Condition: Stable rn Diagnosis - Left sided colitis without complications rn Followup: rn - With: Private Physician - When: As needed - Reason: Recheck today's complaints, Re-evaluation by your physician Discharge Instructions: - Discharge Summary Sheet rn - Colitis rn Forms: - Medication Reconciliation Form rn - 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 - Prescription Opioid Use rn - Patient Portal Instructions rn - Leadership Thank You Letter rn Prescriptions: - ondansetron 4 mg Oral Tablet,disintegrating - take 1 tablet ORAL route every 8 hours As needed; 14 tablet; Refills: 0, rn Product Selection Permitted - Cipro 500 mg Oral Tablet - take 1 tablet ORAL route every 12 hours for 10 days; 20 tablet; Refills: 0, rn Product Selection Permitted - Flagyl 500 mg Oral Tablet - take 1 tablet ORAL route every 8 hours for 10 days; 30 tablet; Refills: 0, rn Product Selection Permitted - Tramadol 50 mg Oral Tablet - take 1 tablet ORAL route every 8 hours as needed; 12 tablet; Refills: 0, rn Product Selection Permitted Signatures: Dispatcher [employer] EDVania Pacheco RN RN iw Nieto, Roman, MD MD rn Blanchard, Shelby, RN RN ss Corrections: (The following items were deleted from the chart) 08:48 07:53 Abdomen Pelvis W Con+CT.RAD.BRZ ordered. EDMS EDMS 09:11 08:13 Pelvis Complete+US.RAD.BRZ ordered. EDMS EDMS
--- NOTE | 2024-05-10 10:26 | ER ---
Nurse's Notes [facility] Name: Natanael Dyson Age: 29 yrs Sex: Female : 1995 Arrival Date: 05/10/2024 Time: 07:28 Bed 5 Private MD: Diagnosis: Left sided colitis without complications Presentation: 05/10 07:38 Chief complaint: Patient states: lower abd pain that began 3 days ago. Pain is ss described like contractions. Coronavirus screen: Client denies travel out of the [place] in the last 14 days. Ebola Screen: Patient denies exposure to infectious person. Patient denies travel to an Ebola-affected area in the 21 days before illness onset. Initial Sepsis Screen: Does the patient meet any 2 criteria? No. Patient's initial sepsis screen is negative. Does the patient have a suspected source of infection? No. Patient's initial sepsis screen is negative. Risk Assessment: Do you want to hurt yourself or someone else? Patient reports no desire to harm self or others. Onset of symptoms was May 07, 2024. 07:38 Method Of Arrival: Ambulatory ss 07:38 Acuity: THIERNO 3 ss Historical: - Allergies: 07:40 Compazine; ss 07:40 Haldol; ss 07:40 Iodine; ss 07:40 Morphine; ss 07:40 NSAIDS NON STEROIDAL ANTI INFLAMMATORY DRUG; ss 07:40 Reglan; ss 07:40 Toradol; ss - PMHx: 07:40 Anxiety; breast cancer; depressive disorder; Kidney stone; nephritis; ss - PSHx: 07:40 Cholecystectomy; Ligation of fallopian tube; ss - Family history:: not pertinent. - Hospitalizations: : No recent hospitalization is reported. Screenin:30 [facility] ED Fall Risk Assessment (Adult) History of falling in the last 3 months, iw including since admission No falls in past 3 months (0 pts) Confusion or Disorientation No (0 pts) Intoxicated or Sedated No (0 pts) Impaired Gait No (0 pts) Mobility Assist Device Used No (0 pt) Altered Elimination No (0 pt) Score/Fall Risk Level 0 - 2 = Low Risk Oriented to surroundings, Maintained a safe environment. Abuse screen: Denies threats or abuse. Nutritional screening: No deficits noted. Tuberculosis screening: No symptoms or risk factors identified. Assessment: 08:30 General: Appears in no apparent distress. Behavior is calm, cooperative. Pain: iw Complains of pain in left upper quadrant and left lower quadrant. Neuro: Level of Consciousness is awake, alert, obeys commands, Oriented to person, place, time, situation, Moves all extremities. Full function Gait is steady. Cardiovascular: Patient's skin is warm and dry. Respiratory: Respiratory effort is even, unlabored, Respiratory pattern is regular. GI: Abdomen is non-distended, Abd is soft X 4 quads Reports lower abdominal pain, nausea. Derm: Skin is intact, is healthy with good turgor. Musculoskeletal: Range of motion: intact in all extremities. 09:35 Reassessment: Patient appears in no apparent distress at this time. Patient and/or iw family updated on plan of care and expected duration. Pain level reassessed. pt requesting more pain medication. Vital Signs: 07:38 Pulse 93; Resp 18; Temp 97.7(O); Pulse Ox 98% ; Weight 58.97 kg; Height 5 ft. 1 in. ; ss 07:43 BP 106 / 72; ss 08:33 BP 132 / 83; Pulse 84; Resp 16; Pulse Ox 97% on R/A; iw 07:38 Body Mass Index 24.56 (58.97 kg, 154.94 cm) ss ED Course: 07:29 Patient arrived in ED. mr 07:32 Harjit Samson MD is Attending Physician. rn 07:40 Triage completed. ss 07:40 Arm band placed on right wrist. ss 08:00 Patient has correct armband on for positive identification. Provided Education on: US. iw 08:15 Initial lab(s) drawn, by me, sent to lab. Inserted saline lock: 24 gauge in left hand, iw using aseptic technique. 08:31 Vania Loo, RN is Primary Nurse. iw 09:12 Abdomen In Process Unspecified. EDMS 09:31 Pelvis Complete In Process Unspecified. EDMS 10:42 No provider procedures requiring assistance completed. IV discontinued, intact, iw bleeding controlled, No redness/swelling at site. Pressure dressing applied. Administered Medications: 08:29 Drug: fentaNYL (PF) IVP 25 mcg IVP once Route: IVP; Site: left hand; iw 10:20 Drug: Ciprofloxacin PO 500 mg PO once Route: PO; iw 10:20 Drug: metroNIDAZOLE PO 500 mg PO once Route: PO; iw 10:20 Drug: fentaNYL (PF) IVP 25 mcg IVP once Route: IVP; Site: left hand; iw Medication: 08:31 VIS not applicable for this client. iw Outcome: : Discharge ordered by . rn 10:42 Discharged to home ambulatory, iw 10:42 Condition: good 10:42 Discharge instructions given to patient, Instructed on discharge instructions, follow up and referral plans. medication usage, Demonstrated understanding of instructions, follow-up care, medications, Prescriptions given X 4, 10:43 Patient left the ED. iw Signatures: Dispatcher [employer] EDCT Kymberly Murry, Reg Reg mr Vania Loo, RN RN Harjit Mohamud MD MD rn Blanchard, Shelby, RN RN ss
[2024-05-10 10:47] VITALS: TEMP 97.7
[2024-05-10 10:50] VITALS: BP 132/83; O2SAT 97
== END 2024-05-10 10:43 | disposition home or self-care (01) ==
LOC: ER 07:28
DX: K51.50 Left sided colitis without complications (principal)
CPT/HCPCS: 85025; 81001; 36415; 81025; 83690; 80053; 74176; 76856; 96374; 99284; J3010 ×2

== ENCOUNTER 2024-05-13 08:38 | Observation (INO) | payer OTHER ==
--- OUTSIDE RECORDS SUMMARY | 2024-05-13 08:51 | XMS REPORT | Continuity of Care Document ---
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 hours as needed for Allergies for up to 7 days. [facility] methylPREDN ISolone sod succ (SOLU-MEDRO L (PF)) injection 40 mg 2023-05 23:45: 00 03-13 01:24 :00 No 40mg 40 mg, Intravenou s, ONCE, 1 dose, On Sat03/12/24 at 1845, 1 mL [facility] diphenhydrA MINE (BENADRYL) injection 50 mg 2023-05 23:45: 00 03-13 01:23 :00 No 50mg 50 mg, Intravenou s, ONCE, 1 dose, On Sat03/12/24 at 1845, Routine [facility] methylPREDN ISolone sod succ (SOLU-MEDRO L (PF)) injection 40 mg 2023-05 20:45: 00 03-12 20:53 :00 No 40mg 40 mg, Intravenou s, ONCE, 1 dose, On Sat03/12/24 at 1545, 1 mL [facility] diphenhydrA MINE (BENADRYL) injection 25 mg 2023-05 20:30: 00 03-12 20:58 :00 No 25mg 25 mg, Intravenou s, ONCE, 1 dose, On Sat03/12/24 at 1545, Routine [facility] diphenhydrA MINE (BENADRYL) injection 25 mg 2023-05 16:30: 00 03-12 16:16 :00 No 25mg 25 mg, Intravenou s, ONCE, 1 dose, On Sat03/12/24 at 1130, Routine [facility] diazePAM (VALIUM) injection 2 mg 2023-05 15:45: 00 03-13 13:38 :00 No 2mg 2 mg, Slow IV Push, BID, First dose on Sat03/12/24 at 1045, Until Discontinu ed, Routine [facility] Potassium Bicarb-Citr ic Acid (EFFER-K) effervescen t tablet 40 mEq 2023-05 03:45: 00 03-12 03:18 :00 No 40meq 40 mEq, Oral, ONCE, 1 dose, On Sat03/11/24 at 2245, Routine [facility] amitriptyli ne (ELAVIL) tablet 25 mg 2023-05 02:00: 00 Yes 25mg 25 mg, Oral, QHS, First dose on Sat03/11/24 at 2100, Until Discontinu ed, Routine [facility] budesonide (PULMICORT RESPULE) nebulizer solution 0.25 mg 2023-05 20:30: 00 03-12 15:40 :27 No .25mg 0.25 mg, Inhalation , BID, First dose (after last modificati on) on Sat03/11/24 at 1530, Until Discontinu ed, Routine [facility] morpHINE injection 2 mg 2023-05 18:00: 00 03-11 18:18 :00 No 2mg 2 mg, Slow IV Push, ONCE, 1 dose, On Sat03/11/24 at 1300, Routine [facility] proMETHazin e (PHENERGAN) 12.5 mg in NS 50 mL IV piggyback (CNR) 2023-05 16:08: 36 03-13 06:15 :30 No 12.5mg 12.5 mg, IV Piggyback, at 200 mL/hr Administer over 15 Minutes, Q4HPRN, Starting on Sat03/11/24 at 1108, Until Sat03/13/24 at 0115, [place], Nausea and Vomiting (N/V) [facility] diphenhydrA MINE (BENADRYL) injection 25 mg 2023-05 15:45: 00 03-11 15:14 :00 No 25mg 25 mg, Intravenou s, ONCE, 1 dose, On Sat03/11/24 at 1045, Routine [facility] morphine (2 mg/mL) injection 4 mg 2023-05 13:44: 13 03-11 17:55 :50 No 4mg 4 mg, Slow IV Push, Q4HPRN, Starting on Sat03/11/24 at 0844, Until Sat03/11/24 at 1255, Routine, Pain (scale 7-10) [facility] magnesium sulfate in water 4 gram/50 mL (8 %) IV Piggyback 4 g 2023-05 13:00: 00 03-11 16:09 :00 No 4g 4 g, IV Piggyback, at 25 mL/hr Administer over 120 Minutes, ONCE, 1 dose, On Sat03/11/24 at 0800, Routine [facility] tetracyclin e (ACHROMYCIN ) capsule 500 mg 2023-05 13:00: 00 03-11 16:07 :08 No 500mg 500 mg, Oral, QID, 112 doses, First dose on Sat03/11/24 at 0800, Last dose on Sat04/07/24 at 2000, [place], Reason for Anti-Infec tive: Documented Infection, Documented Infection Site: Abdominal, Duration of Therapy: 14 days [facility] metroNIDAZO LE (FLAGYL) tablet 500 mg 2023-05 13:00: 00 03-11 16:07 :08 No 500mg 500 mg, Oral, QID, First dose on Sat03/11/24 at 0800, Until Discontinu ed, Routine, Reason for Anti-Infec tive: Documented Infection, Documented Infection Site: Abdominal, Duration of Therapy: 14 days [facility] bismuth subsalicyla te (PEPTO BISMOL) chewable tablet 524 mg 2023-05 13:00: 00 03-11 16:07 :08 No 524mg 524 mg, Oral, QID, First dose on Sat03/11/24 at 0800, Until Discontinu ed [facility] lactated ringers IV infusion 1,000 mL 2023-05 08:30: 00 03-11 16:29 :00 No 1000mL at 125 mL/hr, 1,000 mL, IV Infusion, CONTINUOUS , Starting on Sat03/11/24 at 0330, Until Sat03/11/24 at 1129, Routine [facility] trimethoben zamide (TIGAN) injection 100 mg 2023-05 05:12: 20 03-13 16:08 :09 No 100mg 100 mg, Intramuscu lar, Q6HPRN, Starting on Sat03/11/24 at 0012, Until Sat03/13/24 at 1108, Routine, Nausea and Vomiting (N/V), alternate with zofran [facility] ondansetron (ZOFRAN (PF)) injection 4 mg 2023-05 03:42: 41 03-11 16:10 :43 No 4mg 4 mg, Slow IV Push, Q6HPRN, Starting on Sat03/10/24 at 2242, Until Sat03/11/24 at 1110, [place], Nausea and Vomiting (N/V) [facility] pantoprazol e (PROTONIX) injection 40 mg 2023-05 03:30: 00 03-13 16:08 :09 No 40mg 40 mg, Slow IV Push, Q12H, First dose on Sat03/10/24 at 2230, Until Discontinu ed [facility] morpHINE injection 4 mg 2023-05 03:21: 30 03-11 13:44 :25 No 4mg 4 mg, Slow IV Push, Q4HPRN, Starting on Sat03/10/24 at 2221, Until Sat03/11/24 at 0844, Routine, Pain (scale 7-10) [facility] acetaminoph en (TYLENOL) tablet 650 mg 2023-05 03:21: 25 03-13 16:08 :09 No 650mg [facility] morpHINE injection 4 mg 2023-05 02:00: 00 03-11 01:10 :00 No 4mg 4 mg, Slow IV Push, ONCE, 1 dose, On Sat03/10/24 at 2100, STAT [facility] trimethoben zamide (TIGAN) injection 100 mg 2023-05 02:00: 00 03-11 02:05 :00 No 100mg 100 mg, Intramuscu lar, ONCE, 1 dose, On Sat03/10/24 at 2100, Routine [facility] morpHINE injection 4 mg 2023-05 21:30: 00 03-10 22:20 :00 No 4mg 4 mg, Slow IV Push, ONCE, 1 dose, On Sat03/10/24 at 1630, STAT [facility] proMETHazin e (PHENERGAN) 25 mg in NS 50 mL IV piggyback (CNR) 2023-05 21:00: 00 03-10 22:30 :00 No 25mg 25 mg, IV Piggyback, at 200 mL/hr Administer over 15 Minutes, ONCE, 1 dose, On Sat03/10/24 at 1600, [place] [facility] diphenhydrA MINE (BENADRYL) injection 25 mg 2023-05 19:00: 00 03-10 19:12 :00 No 25mg 25 mg, Slow IV Push, ONCE, 1 dose, On Sat03/10/24 at 1400, STAT [facility] ondansetron (ZOFRAN (PF)) injection 4 mg 2023-05 18:30: 00 03-10 18:34 :00 No 4mg 4 mg, Slow IV Push, ONCE, 1 dose, On Sat03/10/24 at 1330, [facility] diphenhydrA MINE:lidoca ine 2% viscous:maa lox 1:1:1 (FIRST-MOUT HWASH BLM) oral suspension 15 mL 2023-05 17:15: 00 03-10 18:34 :00 No 15mL 15 mL, Oral, ONCE, 1 dose, On Sat03/10/24 at 1215, Routine [facility] NaCl 0.9% (NS) bolus infusion 1,500 mL 2023-05 16:30: 00 03-11 00:19 :00 No 1500mL at 999 mL/hr, 1,500 mL, IV Infusion, ONCE, 1 dose, On Sat03/10/24 at 1130, [facility] morpHINE injection 4 mg 2023-05 16:30: 00 03-10 16:33 :00 No 4mg 4 mg, Slow IV Push, ONCE, 1 dose, On Sat03/10/24 at 1130, [facility] ondansetron (ZOFRAN (PF)) injection 4 mg 2023-05 15:30: 00 03-10 15:54 :00 No 4mg 4 mg, Slow IV Push, ONCE, 1 dose, On Sat03/10/24 at 1030, [facility] pantoprazol e (PROTONIX) EC tablet 40 mg 2023-0525 01:00: 00 03-05 22:06 :08 No 40mg 40 mg, Oral, BID, First dose on Sat03/05/24 at 2000, Until Discontinu ed, Routine [facility] bismuth subsalicyla te (PEPTO BISMOL) chewable tablet 524 mg 2023-05 17:00: 00 03-05 22:06 :08 No 524mg 524 mg, Oral, QID, 56 doses, First dose on Sat03/05/24 at 1200, Last dose on Sat03/19/24 at 0800, Routine [facility] tetracyclin e (ACHROMYCIN ) capsule 500 mg 2023-05 13:00: 00 03-05 22:06 :08 No 500mg 500 mg, Oral, QID, 56 doses, First dose on Sat03/05/24 at 0800, Last dose on Sat03/18/24 at 2000, [place], Reason for Anti-Infec tive: Documented Infection, Documented Infection Site: Abdominal, Duration of Therapy: 14 days [facility] metroNIDAZO LE (FLAGYL) tablet 500 mg 2023-05 11:30: 00 03-05 22:06 :08 No 500mg 500 mg, Oral, Q8H, 42 doses, First dose on Sat03/05/24 at 0630, Last dose on Sat03/18/24 at 2200, Routine, Reason for Anti-Infec tive: Documented Infection, Documented Infection Site: Abdominal, Duration of Therapy: 14 days [facility] pantoprazol e (PROTONIX) injection 40 mg 2023-05 01:00: 00 03-05 16:38 :50 No 40mg 40 mg, Slow IV Push, Q12H, First dose on Sat03/04/24 at 2000, Until Discontinu ed [facility] metroNIDAZO LE 500 mg tablet 2023-05 00:00: 00 Yes [id number] 500mg Take 1 tablet by mouth 4 (four) times daily. [facility] tetracyclin e 500 mg capsule 2023-05 00:00: 00 Yes [id number] 500mg Take 1 capsule by mouth 4 (four) times daily. [facility] bismuth subsalicyla te 525 mg Tab 2023-05 00:00: 00 Yes [id number] 525mg Take 525 mg by mouth 4 (four) times daily. [facility] omeprazole 20 mg capsule 2023-05 00:00: 00 Yes [id number] 20mg Take 1 capsule by mouth in the morning and 1 capsule in the evening. [facility] ondansetron 4 mg disintegrat ing tablet 2023-05 00:00: 00 Yes [id number] 4mg Take 1 tablet by mouth every 8 (eight) hours as needed for Nausea and Vomiting (N/V). [facility] enoxaparin (LOVENOX) injection 40 mg 2023-05 22:00: 00 03-05 22:06 :08 No 40mg 40 mg, Subcutaneo us, DAILY, First dose on Sat03/04/24 at 1700, Until Discontinu ed, Routine [facility] hydrOXYzine (ATARAX) tablet 10 mg 2023-05 20:02: 48 03-05 22:06 :08 No 10mg 10 mg, Oral, Q6HPRN, Starting on Sat03/04/24 at 1502, Until Kathie 03/05/24 at 1706, Routine, Anxiety [facility] morphine (2 mg/mL) injection 4 mg 2023-05 19:15: 05 03-05 19:09 :51 No 4mg 4 mg, Slow IV Push, Q6HPRN, Starting on Sat03/04/24 at 1415, Until Kathie 03/05/24 at 1409, Routine, Pain (scale 7-10) [facility] proMETHazin e (PHENERGAN) 12.5 mg in NS 50 mL IV piggyback (CNR) 2023-05 19:13: 41 03-05 22:06 :08 No 12.5mg 12.5 mg, IV Piggyback, at 200 mL/hr Administer over 15 Minutes, Q4HPRN, Starting on Sat03/04/24 at 1413, Until Kathie 03/05/24 at 1706, Routine, N/V unresponsi ve to Ondansetro n [facility] ondansetron (ZOFRAN (PF)) injection 4 mg 2023-05 19:10: 57 03-05 22:06 :08 No 4mg 4 mg, Slow IV Push, Q6HPRN, Starting on Sat03/04/24 at 1410, Until Sat03/05/24 at 1706, Routine, Nausea and Vomiting (N/V) [facility] HYDROcodone -acetaminop hen (NORCO 5) tablet 1 tablet 2023-05 19:10: 38 03-05 22:06 :08 No 1{tbl} 1 tablet, Oral, Q6HPRN, Starting on Sat03/04/24 at 1410, Until Kathie 03/05/24 at 1706, Routine, Pain (scale 4-6) [facility] acetaminoph en (TYLENOL) tablet 650 mg 2023-05 19:10: 34 03-05 22:06 :08 No 650mg [facility] morphine (2 mg/mL) injection 4 mg 2023-05 16:15: 00 03-04 16:19 :00 No 4mg 4 mg, Slow IV Push, ONCE, 1 dose, On Sat03/04/24 at 1115, [place] [facility] ondansetron (ZOFRAN (PF)) injection 4 mg 2023-05 16:15: 00 03-04 16:19 :00 No 4mg 4 mg, Slow IV Push, ONCE, 1 dose, On Sat03/04/24 at 1115, [place] [facility] morphine (2 mg/mL) injection 4 mg 2023-05 13:15: 00 03-04 13:57 :00 No 4mg 4 mg, Slow IV Push, ONCE, 1 dose, On Sat03/04/24 at 0815, STAT [facility] pantoprazol e (PROTONIX) injection 40 mg 2023-05 13:15: 00 03-04 14:04 :00 No 40mg 40 mg, Slow IV Push, ONCE, 1 dose, On Sat03/04/24 at 0815 [facility] NaCl 0.9% (NS) bolus infusion 1,000 mL 2023-05 13:15: 00 03-04 16:51 :00 No 1000mL at 999 mL/hr, 1,000 mL, IV Infusion, ONCE, 1 dose, On Sat03/04/24 at 0815, [place] [facility] ondansetron (ZOFRAN (PF)) injection 4 mg 2023-05 12:15: 00 03-04 13:56 :00 No 4mg 4 mg, Slow IV Push, ONCE, 1 dose, On Sat03/04/24 at 0715, [place] [facility] escitalopra m oxalate 20 mg tablet 2023-05 00:00: 00 Yes 20mg Take 1 tablet by mouth in the morning. [facility] eszopiclone 3 mg tablet 2023-05 00:00: 00 Yes 3mg Take 1 tablet by mouth at bedtime. [facility] bismuth subsalicyla te 525 mg Tab 2023-05 00:00: 00 03-05 00:00 :00 No [id number] 525mg Take 525 mg by mouth 4 (four) times daily for 14 days. [facility] metroNIDAZO LE 500 mg tablet 2023-05 00:00: 00 03-05 00:00 :00 No [id number] 500mg Take 1 tablet by mouth 4 (four) times daily for 14 days. [facility] tetracyclin e 500 mg capsule 2023-05 00:00: 00 03-05 00:00 :00 No [id number] 500mg Take 1 capsule by mouth 4 (four) times daily for 14 days. [facility] omeprazole 20 mg capsule 2023-05 00:00: 00 03-05 00:00 :00 No [id number] 20mg Take 1 capsule by mouth in the morning and 1 capsule in the evening. Do all this for 14 days. [facility] pantoprazol e (PROTONIX) EC tablet 40 mg 2023-05 16:45: 00 02-26 23:59 :22 No 40mg 40 mg, Oral, BID, First dose (after last modificati on) on Kathie 02/27/24 at 1145, Until Discontinu ed, Routine [facility] lactated ringers IV infusion 2023-05 15:19: 00 02-26 15:26 :52 No IV Infusion, CONTINUOUS PRN, Starting on Kathie 02/27/24 at 1019, Until Kathie 02/27/24 at 1026, Routine, Intra-op [facility] simethicone (GAS RELIEF (SIMETHICON E)) 40 mg/0.6 mL drops 2023-05 14:57: 00 02-26 16:34 :28 No PRN, Starting on Kathie 02/27/24 at 0957, Until Kathie 02/27/24 at 1134, Routine, Intra-op [facility] PHENYLephri ne 1000 mcg/10 mL in 0.9% NaCl syringe 2023-05 14:50: 00 02-26 15:26 :52 No Intravenou s, ONCE INTRA PROCEDURE, Starting on Kathie 02/27/24 at 0950, Until Kathie 02/27/24 at 1026, Routine, Intra-op [facility] dexmedeTOMI Dine (PRECEDEX) injection 2023-05 14:27: 00 02-26 15:26 :52 No Intravenou s, ONCE INTRA PROCEDURE, Starting on Kathie 02/27/24 at 0927, Until Kathie 02/27/24 at 1026, Routine, Intra-op [facility] propofoL IV infusion 2023-05 14:26: 00 02-26 15:26 :52 No IV Infusion, ONCE INTRA PROCEDURE, Starting on Kathie 02/27/24 at 0926, Until Kathie 02/27/24 at 1026, Routine, Intra-op [facility] lidocaine 1% (XYLOCAINE) 100 mg/10 mL (1 %) injection 2023-05 14:26: 00 02-26 15:26 :52 No Intravenou s, ONCE INTRA PROCEDURE, Starting on Kathie 02/27/24 at 0926, Until Kathie 02/27/24 at 1026, Routine, Intra-op [facility] FENTanyl (PF) (SUBLIMAZE) injection 2023-05 14:26: 00 02-26 15:26 :52 No Intravenou s, ONCE INTRA PROCEDURE, Starting on Kathie 02/27/24 at 0926, Until Kathie 02/27/24 at 1026, Routine, Intra-op [facility] midazolam (VERSED) injection 2023-05 14:24: 00 02-26 15:26 :52 No IV Push, ONCE INTRA PROCEDURE, Starting on Kathie 02/27/24 at 0924, Until Kathie 02/27/24 at 1026, Routine, Intra-op [facility] NaCl 0.9% (NS) IV infusion 2023-05 14:22: 00 02-26 15:26 :52 No IV Infusion, CONTINUOUS PRN, Starting on Kathie 02/27/24 at 0922, Until Kathie 02/27/24 at 1026, Routine, Intra-op [facility] sodium phosphates (READY-TO-U SE ENEMA) 19-7 gram/118 mL enema 1 Enema 2023-05 10:00: 00 02-26 10:05 :00 No 1{enema } 1 Enema, Rectal, ONCE, 1 dose, On Sat02/27/24 at 0500, Routine [facility] polyethylen e glycol 3350 powder 17 g 2023-05 01:00: 00 02-26 21:59 :19 No 17g 17 g, Oral, BID, First dose (after last modificati on) on Sat02/26/24 at 2000, Until Discontinu ed, Routine [facility] ondansetron 4 mg disintegrat ing tablet 2023-05 00:00: 00 03-05 00:00 :00 No [id number] 4mg Take 1 tablet by mouth every 8 (eight) hours as needed for Nausea and Vomiting (N/V). [facility] pantoprazol e 40 mg EC tablet 2023-05 00:00: 00 03-05 00:00 :00 No [id number] 40mg Take 1 tablet by mouth in the morning and 1 tablet in the evening. [facility] amitriptyli ne 25 mg tablet 2023-05 00:00: 00 03-04 00:00 :00 No [id number] 25mg Take 1 tablet by mouth at bedtime. [facility] acetaminoph en-codeine 300-30 mg tablet 2023-05 00:00: 00 02-26 00:00 :00 No [id number] 1{tbl} Take 1 tablet by mouth every 4 (four) hours as needed for Pain (scale 7-10) for up to 7 days. Indication s: acute pain [facility] simethicone (GAS RELIEF (SIMETHICON E)) chewable tablet 80 mg 2023-05 23:00: 00 02-26 21:59 :19 No 80mg 80 mg, Oral, PC+HS, First dose on Sat02/26/24 at 1800, Until Discontinu ed, Routine [facility] morphine (2 mg/mL) injection 2 mg 2023-05 20:22: 36 02-26 21:59 :19 No 2mg 2 mg, Slow IV Push, Q4HPRN, Starting on Sat02/26/24 at 1522, Until Kathie 02/27/24 at 1659, Routine, Pain (scale 4-6) [facility] morphine (2 mg/mL) injection 4 mg 2023-05 20:22: 32 02-26 21:59 :19 No 4mg 4 mg, Slow IV Push, Q4HPRN, Starting on Sat02/26/24 at 1522, Until Kathie 02/27/24 at 1659, Routine, Pain (scale 7-10) [facility] LORazepam (ATIVAN) injection 0.5 mg 2023-05 18:39: 21 02-26 21:59 :19 No .5mg 0.5 mg, Slow IV Push, Q6HPRN, Starting on Sat02/26/24 at 1339, Until Kathie 02/27/24 at 1659, Routine, Anxiety [facility] bisacodyL (DULCOLAX) suppository 10 mg 2023-05 18:17: 00 02-25 18:47 :00 No 10mg 10 mg, Rectal, ONCE NOW, 1 dose, On Sat02/26/24 at 1330, Routine [facility] acetaminoph en (OFIRMEV) IV piggyback 1,000 mg 2023-05 15:30: 00 02-25 15:03 :00 No 1000mg 1,000 mg, IV Piggyback, at 400 mL/hr Administer over 15 Minutes, ONCE, 1 dose, On Sat02/26/24 at 1030, Routine, Is the patient strict NPO and unable to tolerate oral medication s? Yes [facility] bisacodyL (DULCOLAX) tablet 5 mg 2023-05 14:30: 00 02-26 21:59 :19 No 5mg 5 mg, Oral, DAILY, First dose on Sat02/26/24 at 0930, Until Discontinu ed, Routine [facility] amitriptyli ne (ELAVIL) tablet 25 mg 2023-05 02:00: 00 02-26 23:59 :22 No 25mg 25 mg, Oral, QHS, First dose on Sat02/25/24 at 2100, Until Discontinu ed, Routine [facility] morphine (2 mg/mL) injection 4 mg 2023-05 18:49: 53 02-25 14:28 :08 No 4mg 4 mg, Slow IV Push, Q4HPRN, Starting on Sat02/25/24 at 1349, Until Sat02/26/24 at 0928, Routine, Pain (scale 7-10) [facility] morphine (2 mg/mL) injection 2 mg 2023-0515 18:49: 15 02-25 14:28 :08 No 2mg 2 mg, Slow IV Push, Q4HPRN, Starting on Sat02/25/24 at 1349, Until Sat02/26/24 at 0928, Routine, Pain (scale 7-10) [facility] gadobenate dimeglumine (MULTIHANCE -10 mL) injection 9.08 mL 2023-05 17:30: 00 02-24 17:30 :00 No [id number] .2mL/kg 9.08 mL (0.2 mL/kg ?45.4 kg), Intravenou s, ONCE, 1 dose, On Sat02/25/24 at 1230, [facility] L[facility]ATIVAN[facility] 1 mg 2023-05 17:00: 00 02-24 16:25 :00 No 1mg 1 mg, Slow IV Push, ONCE, 1 dose, On Sat02/25/24 at 1200, STAT [facility] polyethylen e glycol 3350 powder 17 g 2023-05 16:00: 00 02-25 14:24 :01 No 17g 17 g, Oral, DAILY, First dose on Sat02/25/24 at 1100, Until Discontinu ed, Routine [facility] lactated ringers IV infusion 1,000 mL 2023-05 13:15: 02-26 21:59 :19 No 1000mL at 125 mL/hr, 1,000 mL, IV Infusion, CONTINUOUS , Starting on Sat02/25/24 at 0815, Until Sat02/27/24 at 1659, Routine [facility] potassium chloride in water (KCL) 20 mEq/100 mL IV infusion 20 mEq 2023-05 13:00: 00 02-24 13:30 :00 No 20meq 20 mEq, IV Infusion, at 50 mL/hr Administer over 2 Hours, ONCE, 1 dose, On Sat02/25/24 at 0800, Routine [facility] melatonin (MELATIN) tablet 3 mg 2023-05 02:00: 00 02-26 21:59 :19 No 3mg 3 mg, Oral, QHS, First dose on Sat02/24/24 at 2100, Until Discontinu ed, Routine [facility] lactated ringers IV infusion 500 mL 2023-05 19:30: 00 02-24 09:54 :00 No 500mL at 999 mL/hr, 500 mL, IV Infusion, ONCE, 1 dose, On Sat02/24/24 at 1430, Routine [facility] Lidocaine (LIDOCARE) 4 % patch 1 Patch 2023-05 18:00: 00 02-24 05:15 :00 No 1{patch } 1 Patch, Topical, Administer over 12 Hours, ONCE, 1 dose, On Sat02/24/24 at 1300, Routine [facility] LORazepam (ATIVAN) injection 0.5 mg 2023-05 12:25: 30 02-25 18:39 :43 No .5mg 0.5 mg, Slow IV Push, Q6HPRN, Starting on Sat02/24/24 at 0725, Until Sat02/26/24 at 1339, Routine, Anxiety, Agitation [facility] diphenhydrA MINE (BENADRYL) injection 25 mg 2023-05 01:40: 29 02-23 14:54 :01 No 25mg 25 mg, Intravenou s, Q6HPRN, Starting on Sat02/23/24 at 2040, Until Sat02/24/24 at 0954, Routine, Nausea and Vomiting (N/V) [facility] LORazepam (ATIVAN) injection 0.5 mg 2023-05 01:39: 00 02-23 02:48 :00 No .5mg 0.5 mg, Slow IV Push, ONCE, 1 dose, On Sat02/23/24 at 2045, Routine [facility] diphenhydrA MINE (BENADRYL) injection 25 mg 2023-05 14:19: 13 02-23 01:14 :28 No 25mg 25 mg, Intravenou s, Q6HPRN, Starting on Sat02/23/24 at 0919, Until Sat02/23/24 at 2014, Routine, Nausea and Vomiting (N/V) [facility] ondansetron (ZOFRAN (PF)) injection 4 mg 2023-05 14:18: 38 02-26 21:59 :19 No 4mg 4 mg, Slow IV Push, Q6HPRN, Nausea and Vomiting (N/V), Starting on 02/23/24 at 0918, Doses of ondansetro n 16 mg and above need to be administer ed via IV piggyback. For Dose >=24mg ECG monitoring is advisable. [facility] pantoprazol e (PROTONIX) injection 40 mg 2023-05 11:53: 00 02-25 19:46 :39 No 40mg 40 mg, Slow IV Push, Q24H, First dose (after last modificati on) on 02/23/24 at 0700, Until Discontinu ed [facility] cariprazine (VRAYLAR) 1.5 mg capsule 2023-05 09:24: 25 Yes 1.5mg Take 1 capsule by mouth in the morning. [facility] LORazepam 0.5 mg tablet 2023-05 09:24: 25 Yes .5mg Take 1 tablet by mouth. [facility] diphenhydrA MINE (BENADRYL) injection 25 mg 2023-05 03:57: 18 02-22 14:19 :23 No 25mg 25 mg, Intravenou s, Q4HPRN, Starting on 02/22/24 at 2257, Until 02/23/24 at 0919, Routine, Nausea and Vomiting (N/V) [facility] heparin (porcine) injection 5,000 Units 2023-05 01:00: 00 02-26 21:59 :19 No 5000U 5,000 Units, Subcutaneo us, Q12H, First dose on 02/22/24 at 2000, Until Discontinu ed, Routine [facility] morphine (2 mg/mL) injection 4 mg 2023-05 19:33: 18 02-24 15:57 :38 No 4mg 4 mg, Slow IV Push, Q4HPRN, Starting on 02/22/24 at 1433, Until 02/25/24 at 1057, Routine, Pain (scale 7-10) [facility] proMETHazin e (PHENERGAN) 25 mg in NS 50 mL IV piggyback (CNR) 2023-05 19:33: 05 02-22 14:19 :00 No 25mg 25 mg, IV Piggyback, at 200 mL/hr Administer over 15 Minutes, Q4HPRN, Starting on 02/22/24 at 1433, Until 02/23/24 at 0919, [place], Nausea and Vomiting (N/V) [facility] metoprolol tartrate 50 mg tablet 2023-05 19:26: 59 02-26 00:00 :00 No 50mg Take 1 tablet by mouth in the morning and 1 tablet in the evening. [facility] escitalopra m oxalate (LEXAPRO) 10 mg tablet 2023-05 19:26: 59 02-26 00:00 :00 No 10mg Take 1 tablet by mouth in the morning. [facility] morphine (2 mg/mL) injection 4 mg 2023-05 17:45: 00 02-21 18:20 :00 No 4mg 4 mg, Slow IV Push, ONCE, 1 dose, On 02/22/24 at 1245, STAT [facility] proMETHazin e (PHENERGAN) 25 mg in NS 50 mL IV piggyback (CNR) 2023-05 16:45: 00 02-21 17:33 :00 No 25mg 25 mg, IV Piggyback, at 200 mL/hr Administer over 15 Minutes, ONCE, 1 dose, On 02/22/24 at 1145, [place] [facility] morphine (2 mg/mL) injection 4 mg 2023-05 16:00: 00 02-21 16:06 :00 No 4mg 4 mg, Slow IV Push, ONCE, 1 dose, On 02/22/24 at 1100, STAT [facility] famotidine (PEPCID (PF)) injection 20 mg 2023-05 15:00: 00 02-21 15:35 :00 No 20mg 20 mg, Slow IV Push, ONCE, 1 dose, On 02/22/24 at 1000, [place] [facility] ondansetron (ZOFRAN (PF)) injection 4 mg 2023-05 15:00: 00 02-21 15:34 :00 No 4mg 4 mg, Slow IV Push, ONCE, 1 dose, On 02/22/24 at 1000, [place] [facility] NaCl 0.9% (NS) bolus infusion 1,000 mL 2023-05 15:00: 00 02-21 18:06 :00 No 1000mL at 999 mL/hr, 1,000 mL, IV Infusion, ONCE, 1 dose, On 02/22/24 at 1000, STAT [facility] buPROPion XL 150 mg 24 hr tablet 01-22 00:00: 00 Yes 150mg Take 1 tablet by mouth every morning. [facility] cholestyram ine 4 gram powder 01-20 00:00: 00 Yes MIX AND DRINK 1 SCOOP BY MOUTH DAILY [facility] busPIRone 7.5 mg tablet 01-19 00:00: 00 Yes 7.5mg Take 1 tablet by mouth in the morning and 1 tablet in the evening. [facility] metoprolol tartrate 50 mg tablet 08-25 11:55: 42 Yes 50mg Take 1 tablet by mouth in the morning and 1 tablet in the evening. [facility] escitalopra m oxalate (LEXAPRO) 10 mg tablet 08-25 11:55: 42 Yes 10mg Take 1 tablet by mouth in the morning. [facility] divalproex ER 250 mg 24 hr tablet 08-23 00:00: 00 11-22 04:59 :00 No [id number] 250mg Take 1 tablet by mouth in the morning and 1 tablet in the evening. Do all this for 90 days. [facility] acetaminoph en-codeine 300-30 mg tablet 2024-0 4-13 00:00: 00 08-31 04:59 :00 No [id number] 1{tbl} Take 1 tablet by mouth every 6 (six) hours as needed for Pain (scale 4-6) or Pain (scale 7-10) for up to 7 days. Indication s: acute pain [facility] cefTRIAXone (ROCEPHIN) 1,000 mg in NaCl 0.9% (NS) 100 mL MINI-BAG 05-19 16:45: 00 05-19 17:24 :00 No 1000mg 1,000 mg, IV Piggyback, ONCE, 1 dose, On 05/19/23 at 1045, Administer over 30 Minutes, 100 mL
Reas on for Anti-Infec tive: Documented Infection< br>Documen renata Infection Site: Urine
D uration of Therapy: Other (see Comments) [facility] morpHINE (4 mg/mL) injection 4 mg 05-19 16:45: 00 05-19 16:53 :00 No 4mg 4 mg, Slow IV Push, ONCE, 1 dose, On 05/19/23 at 1045, STAT [facility] NaCl 0.9% (NS) bolus infusion 1,000 mL 05-19 16:00: 00 05-19 17:00 :00 No 1000mL at 999 mL/hr, 1,000 mL, IV Infusion, ONCE, 1 dose, On Sat05/19/23 at 1000, [place] [facility] iopamidol (ISOVUE 370-500 mL) injection 80 mL 05-19 15:50: 00 05-19 16:15 :00 No [id number] 80mL 80 mL, Intravenou s, ONCE, 1 dose, On Sat05/19/23 at 1015, Routine [facility] dicyclomine (BENTYL) tablet 20 mg 05-19 15:45: 00 05-19 16:09 :00 No 20mg 20 mg, Oral, ONCE, 1 dose, On Sat05/19/23 at 0945, [place] [facility] ondansetron (ZOFRAN (PF)) injection 4 mg 05-19 15:15: 00 05-19 15:50 :00 No 4mg 4 mg, Slow IV Push, ONCE, 1 dose, On 05/19/23 at 0915, [place] [facility] maalox:diph enhydrAMINE :lidocaine 2 % viscous 1:1:1 ([facility]) oral suspension 15 mL 05-19 15:15: 00 05-19 15:49 :00 No 15mL 15 mL, Oral, ONCE, 1 dose, On 05/19/23 at 0915, Routine [facility] famotidine (PEPCID (PF)) injection 20 mg 05-19 15:15: 00 05-19 15:51 :00 No 20mg 20 mg, Slow IV Push, ONCE, 1 dose, On 05/19/23 at 0915, [place] [facility] ondansetron 4 mg disintegrat ing tablet 05-19 00:00: 00 02-26 00:00 :00 No [id number] 4mg Take 1 tablet by mouth every 8 (eight) hours as needed for Nausea and Vomiting (N/V). [facility] sucralfate 1 gram tablet 05-19 00:00: 00 06-19 05:59 :00 No [id number] 1g Take 1 tablet by mouth before meals and at bedtime for 30 days. [facility] pantoprazol e 40 mg EC tablet 05-19 00:00: 00 06-19 05:59 :00 No [id number] 40mg Take 1 tablet by mouth in the morning for 30 days. [facility] cefdinir 300 mg capsule 05-19 00:00: 00 05-27 05:59 :00 No [id number] 300mg Take 1 capsule by mouth every 12 (twelve) hours for 7 days. [facility] morpHINE (2 mg/mL) injection 2 mg 01-15 19:15: 00 01-15 18:49 :00 No 2mg 2 mg, Slow IV Push, ONCE, 1 dose, On Sat01/15/23 at 1415, [facility]ine [facility] ondans[facility] (ZOFRAN) tablet 4 mg 01-15 18:15: 00 01-15 22:02 :00 No 4mg 4 mg, Oral, ONCE, 1 dose, On Sat01/15/23 at 1315, Routine [facility] ondansetron 4 mg tablet 01-15 00:00: 00 02-26 00:00 :00 No [id number] 4mg Take 1 tablet by mouth every 8 (eight) hours as needed for Nausea and Vomiting (N/V). [facility] HYDROcodone -acetaminop hen 5-325 mg tablet 01-15 00:00: 00 01-23 04:59 :00 No [id number] 1{tbl} Take 1 tablet by mouth every 4 (four) hours as needed for Pain (scale 4-6) for up to 7 days. Indication s: acute pain [facility] morpHINE (2 mg/mL) injection 2 mg 01-14 16:11: 23 01-15 11:49 :59 No 2mg 2 mg, Slow IV Push, Q4HPRN, Starting on Sat01/14/23 at 1111, Until Sat01/15/23 at 0649, Routine, Pain (scale 7-10) [facility] methocarbam oL (ROBAXIN) tablet 500 mg 01-14 13:00: 00 Yes 500mg 500 mg, Oral, QID, First dose on Sat01/14/23 at 0800, Until Discontinu ed, Routine [facility] celecoxib (CELEBREX) capsule 100 mg 01-14 13:00: 00 Yes 100mg 100 mg, Oral, BID MEALS, First dose on Sat01/14/23 at 0800, Until Discontinu ed, Routine [facility] gabapentin (NEURONTIN) capsule 300 mg 01-14 01:30: 00 Yes 300mg 300 mg, Oral, TID, First dose on Sat01/13/23 at 2030, Until Discontinu ed, Routine [facility] acetaminoph en (TYLENOL) tablet 1,000 mg 01-14 01:30: 00 Yes 1000mg 1,000 mg, Oral, Q8H, First dose (after last modificati on) on 01/13/23 at 2030, Until Discontinu ed, Routine [facility] scopolamine transdermal (TRANSDERM- SCOP) patch 1.5 mg 01-13 00:30: 00 Yes 1.5mg 1.5 mg, Topical, Administer over 72 Hours, Q72H, First dose on 01/12/23 at 1930, Until Discontinu ed, Routine [facility] enoxaparin (LOVENOX) injection 40 mg 01-12 22:00: 00 Yes 40mg 40 mg, Subcutaneo us, DAILY, First dose on 01/12/23 at 1700, Until Discontinu ed, Routine [facility] FENTanyl PF (SUBLIMAZE (PF)) injection 100 mcg 01-12 20:30: 00 01-12 20:30 :00 No [id number] 100ug 100 mcg, Slow IV Push, ONCE, 1 dose, On 01/12/23 at 1530, Routine [facility] proMETHazin e (PHENERGAN) 25 mg in NS 50 mL IV piggyback (CNR) 01-12 17:11: 31 01-15 14:12 :44 No 25mg 25 mg, IV Piggyback, at 200 mL/hr Administer over 15 Minutes, Q4HPRN, Starting on 01/12/23 at 1211, Until 01/15/23 at 0912, Routine, Nausea and Vomiting (N/V) [facility] piperacilli n-tazobacta m (ZOSYN) 3.375 [...] Abdominal< br>Duratio n of Therapy: 7 days [facility] pantoprazol e (PROTONIX) EC tablet 40 mg 01-12 14:00: 00 Yes 40mg 40 mg, Oral, DAILY, First dose on Sat01/12/23 at 0900, Until Discontinu ed, Routine [facility] KCL (KLOR-CON M20) tablet 40 mEq 01-12 09:30: 00 01-12 09:25 :00 No 40meq 40 mEq, Oral, ONCE, 1 dose, On Sat01/12/23 at 0430, Routine [facility] diphenhydrA MINE (BENADRYL) tablet 25 mg 01-12 08:31: 43 Yes 25mg 25 mg, Oral, QHSPRN, Starting on Sat01/12/23 at 0331, Until Discontinu ed, Routine, Itching, Sleep [facility] lactated ringers IV infusion 1,000 mL 01-12 08:15: 00 01-15 11:48 :29 No 1000mL at 50 mL/hr, 1,000 mL, IV Infusion, CONTINUOUS , Starting on Sat01/12/23 at 0315, Until Sat01/15/23 at 0648, Routine [facility] piperacilli n-tazobacta m (ZOSYN) 3.375 g in NaCl 0.9% (NS) 100 mL MINI-BAG 01-12 06:45: 00 01-12 08:43 :00 No 3.375g 3.375 g, IV Piggyback, ONCE, 1 dose, On 01/12/23 at 0145, Administer over 30 Minutes, 100 mL
Reas on for Anti-Infec tive: Documented Infection< br>Documen renata Infection Site: Abdominal< br>Duratio n of Therapy: 7 days [facility] lactated ringers IV infusion 1,000 mL 01-12 06:00: 00 01-12 08:13 :38 No 1000mL at 100 mL/hr, 1,000 mL, IV Infusion, CONTINUOUS , Starting on 01/12/23 at 0100, Until 01/12/23 at 0313, Routine [facility] morpHINE (4 mg/mL) injection 4 mg 01-12 05:49: 22 01-14 05:48 :22 No 4mg 4 mg, Slow IV Push, Q4HPRN, Starting on 01/12/23 at 0049, Until 01/14/23 at 0048, Routine, Pain (scale 7-10) [facility] HYDROcodone -acetaminop hen (NORCO 5) 5-325 mg tablet 1 tablet 01-12 05:49: 18 Yes 1{tbl} 1 tablet, Oral, Q4HPRN, Starting on 01/12/23 at 0049, Until Discontinu ed, Routine, Pain (scale 4-6) [facility] ondansetron (ZOFRAN (PF)) injection 4 mg 01-12 05:49: 11 01-15 17:31 :12 No 4mg 4 mg, Slow IV Push, Q6HPRN, Starting on 01/12/23 at 0049, Until Sat01/15/23 at 1231, Routine, Nausea and Vomiting (N/V) [facility] ondansetron (ZOFRAN (PF)) injection 4 mg 01-12 04:45: 00 01-12 04:45 :00 No 4mg 4 mg, Slow IV Push, ONCE, 1 dose, On Sat01/11/23 at 2345, [place] [facility] morpHINE (4 mg/mL) injection 4 mg 01-12 04:45: 00 01-12 04:45 :00 No 4mg 4 mg, Slow IV Push, ONCE, 1 dose, On Sat01/11/23 at 2345, STAT [facility] proMETHazin e (PHENERGAN) 25 mg in NS 50 mL IV piggyback (CNR) 01-12 04:45: 00 01-12 06:00 :00 No 25mg 25 mg, IV Piggyback, at 200 mL/hr Administer over 15 Minutes, ONCE, 1 dose, On Sat01/11/23 at 2345, [facility] iopamidol (ISOVUE 370-500 mL) injection 80 mL 01-12 03:33: 00 01-12 03:25 :00 No [id number] 80mL 80 mL, Intravenou s, ONCE, 1 dose, On Sat01/11/23 at 2245, Routine [facility] maalox:diph enhydrAMINE :lidocaine 2 % viscous 1:1:1 ([facility]) oral suspension 15 mL 01-12 03:30: 00 01-12 03:07 :00 No 15mL 15 mL, Oral, ONCE, 1 dose, On Sat01/11/23 at 2230, [facility] morpHINE (4 mg/mL) injection 4 mg 01-12 03:30: 00 01-12 03:05 :00 No 4mg 4 mg, Slow IV Push, ONCE, 1 dose, On Sat01/11/23 at 2230, [facility] NaCl 0.9% (NS) bolus infusion 1,000 mL 01-12 03:30: 00 01-12 03:04 :00 No 1000mL at 999 mL/hr, 1,000 mL, IV Infusion, ONCE, 1 dose, On Sat01/11/23 at 2230, [facility] ondansetron (ZOFRAN (PF)) injection 4 mg 01-12 03:00: 00 01-12 03:05 :00 No 4mg 4 mg, Slow IV Push, ONCE, 1 dose, On Sat01/11/23 at 2200, [facility] ibuprofen (IBU) tablet 600 mg 11-21 22:15: 00 11-21 21:44 :00 No 600mg 600 mg, Oral, ONCE, 1 dose, On Sat11/21/22 at 1715, [place] [facility] butalbital- acetaminoph en-caff (ESGIC) 50-325-40 mg tablet 1 tablet 11-21 21:30: 00 11-21 21:39 :00 No 1{tbl} 1 tablet, Oral, ONCE, 1 dose, On Sat11/21/22 at 1630, [place] [facility] ciprofloxac in HCl 500 mg tablet 11-11 00:00: 00 02-26 00:00 :00 No TAKE 1 TABLET BY MOUTH EVERY 12 HOURS FOR 7 DAYS [facility] methocarbam oL 750 mg tablet 11-07 00:00: 00 Yes 750mg Take 1 tablet by mouth 2 (two) times daily as needed. [facility] methocarbam oL 750 mg tablet 11-07 00:00: 00 02-26 00:00 :00 No 1{tbl} Take 1 tablet by mouth 2 (two) times daily as needed. [facility] baclofen 10 mg tablet 10-27 00:00: 00 Yes 10mg Take 1 tablet by mouth every 6 (six) hours as needed. [facility] baclofen 10 mg tablet 10-27 00:00: 00 02-26 00:00 :00 No 1{tbl} Take 1 tablet by mouth every 6 (six) hours as needed. [facility] tiZANidine 4 mg tablet 10-24 00:00: 00 Yes 4mg Take 1 tablet by mouth every 6 (six) hours as needed. [facility] tiZANidine 4 mg tablet 10-24 00:00: 00 02-26 00:00 :00 No 1{tbl} Take 1 tablet by mouth every 6 (six) hours as needed. [facility] traZODone 50 mg tablet 10-22 00:00: 00 Yes 50mg Take 1 tablet by mouth at bedtime. [facility] traZODone 50 mg tablet 2023-0 6-12 00:00: 00 02-26 00:00 :00 No 1{tbl} Take 1 tablet by mouth at bedtime. [facility] hydrOXYzine 50 mg tablet 10-02 00:00: 00 Yes 50mg Take 1 tablet by mouth every 6 (six) hours as needed. [facility] hydrOXYzine 50 mg tablet 10-02 00:00: 00 02-26 00:00 :00 No 1{tbl} Take 1 tablet by mouth every 6 (six) hours as needed. [facility] mirtazapine 15 mg tablet 12 00:00: 00 02-26 00:00 :00 No 15mg Take 1 tablet by mouth at bedtime. [facility] meloxicam 15 mg tablet 09 00:00: 00 Yes 15mg Take 1 tablet by mouth in the morning. [facility] meloxicam 15 mg tablet 09-18 00:00: 00 02-26 00:00 :00 No 1{tbl} Take 1 tablet by mouth in the morning. [facility] verapamil SR 120 mg ER tablet 08 00:00: 00 Yes 120mg Take 1 tablet by mouth in the morning. [facility] verapamil SR 120 mg ER tablet 08 00:00: 00 02-26 00:00 :00 No 1{tbl} Take 1 tablet by mouth in the morning. [facility] OLANZapine 10 mg tablet 09-06 00:00: 00 02-26 00:00 :00 No 10mg Take 1 tablet by mouth in the morning. [facility] cloNIDine 0.1 mg tablet 09-06 00:00: 00 02-26 00:00 :00 No TAKE 1-2 TABLETS BY MOUTH AT BEDTIME NEEDED FOR SLEEP AND ANXIETY [facility] NaCl 0.9% (NS) bolus infusion 1,000 mL 09-05 18:15: 00 09-05 18:08 :00 No 1000mL at 999 mL/hr, 1,000 mL, IV Infusion, ONCE, 1 dose, On Sat09/05/22 at 1315, STAT [facility] acetaminoph en (TYLENOL) tablet 650 mg 09-05 17:30: 00 09-05 17:24 :00 No 650mg 650 mg, Oral, ONCE, 1 dose, On Sat09/05/22 at 1230, [place] [facility] ondansetron (ZOFRAN (PF)) injection 4 mg 09-05 17:15: 00 09-05 17:23 :00 No 4mg 4 mg, Slow IV Push, ONCE, 1 dose, On Sat09/05/22 at 1215, [facility] magnesium sulfate in water 2 gram/50 mL (4 %) infusion 2 g 09-05 16:15: 00 09-05 16:10 :00 No 2g 2 g, IV Piggyback, Administer over 30 Minutes, ONCE, 1 dose, On Sat09/05/22 at 1115, Routine [facility] diphenhydrA MINE (BENADRYL) injection 25 mg 09-05 16:00: 00 09-05 16:01 :00 No 25mg 25 mg, Slow IV Push, ONCE, 1 dose, On Sat09/05/22 at 1100, STAT [facility] ketorolac (TORADOL) injection 30 mg 09-05 15:30: 00 09-05 14:38 :00 No 30mg 30 mg, Slow IV Push, ONCE, 1 dose, On Sat09/05/22 at 1030, Routine [facility] NaCl 0.9% (NS) bolus infusion 1,000 mL 09-05 15:00: 00 09-05 17:12 :00 No 1000mL at 999 mL/hr, 1,000 mL, IV Infusion, ONCE, 1 dose, On Sat09/05/22 at 1000, STAT [facility] methylpredn isolone sod succ (SOLU-MEDRO L) injection 125 mg 09-05 14:45: 00 09-05 14:35 :00 No 125mg 125 mg, Intravenou s, ONCE, 1 dose, On Sat09/05/22 at 0945, 2 mL [facility] butalbital- acetaminoph en-caff (ESGIC) 50-325-40 mg tablet 1 tablet 09-05 14:00: 00 09-05 14:34 :00 No 1{tbl} 1 tablet, Oral, ONCE, 1 dose, On Sat09/05/22 at 0900, [place] [facility] diphenhydrA MINE (BENADRYL) injection 25 mg 09-05 14:00: 00 09-05 14:39 :00 No 25mg 25 mg, Slow IV Push, ONCE, 1 dose, On Sat09/05/22 at 0900, STAT [facility] proMETHazin e (PHENERGAN) 12.5 mg in NaCl 0.9% (NS) 50 mL IV piggyback 09-05 14:00: 00 09-05 14:40 :00 No 12.5mg 12.5 mg, IV Piggyback, ONCE, 1 dose, On Sat09/05/22 at 0900, [facility] carvediloL 25 mg tablet 09-05 00:00: 00 02-26 00:00 :00 No [id number] 25mg Take 1 tablet by mouth in the morning and 1 tablet in the evening. Take with meals. [facility] losartan 50 mg tablet 09-05 00:00: 00 02-26 00:00 :00 No [id number] 50mg Take 1 tablet by mouth in the morning and 1 tablet in the evening. [facility] ibuprofen 800 mg tablet 08-05 00:00: 00 02-26 00:00 :00 No 800mg Take 1 tablet by mouth 3 (three) times daily as needed. [facility] cyclobenzap rine 10 mg tablet 08-05 00:00: 00 02-26 00:00 :00 No 10mg Take 1 tablet by mouth 3 (three) times daily as needed. [facility] maalox:diph enhydrAMINE :lidocaine 2 % viscous 1:1:1 ([facility]) oral suspension 15 mL 08-01 00:45: 00 08-01 00:44 :00 No 15mL 15 mL, Oral, ONCE, 1 dose, On Sat07/31/22 at 1945, [place] [facility] ketorolac (TORADOL) injection 15 mg 08-01 00:15: 00 08-01 00:44 :00 No 15mg 15 mg, Slow IV Push, ONCE, 1 dose, On Sat07/31/22 at 191, Routine [facility] ondansetron (ZOFRAN (PF)) injection 4 mg 08-01 00:15: 00 08-01 00:46 :00 No 4mg 4 mg, Slow IV Push, ONCE, 1 dose, On Sat07/31/22 at 1914, [place] [facility] famotidine (PEPCID (PF)) injection 20 mg 08-01 00:15: 00 08-01 00:46 :00 No 20mg 20 mg, Slow IV Push, ONCE, 1 dose, On Sat07/31/22 at 1914, [place] [facility] ondansetron 4 mg disintegrat ing tablet 07-31 00:00: 00 05-19 00:00 :00 No [id number] 4mg Take 1 tablet by mouth every 8 (eight) hours as needed for Nausea and Vomiting (N/V). [facility] sucralfate 1 gram tablet 07-31 00:00: 00 05-19 00:00 :00 No [id number] 1g Take 1 tablet by mouth before meals and at bedtime. [facility] pantoprazol e 40 mg EC tablet 07-31 00:00: 00 08-15 04:59 :00 No [id number] 40mg Take 1 tablet by mouth in the morning for 14 days. [facility] tamsulosin 0.4 mg 24 hr capsule 3-15 00:00: 00 Yes .4mg Take 1 capsule by mouth in the morning. [facility] tamsulosin 0.4 mg 24 hr capsule 3-15 00:00: 00 02-26 00:00 :00 No 1{capsu le} Take 1 capsule by mouth in the morning. [facility] traMADoL 50 mg tablet 3-13 00:00: 00 02-26 00:00 :00 No 50mg Take 1 tablet by mouth. [facility] ibuprofen 600 mg tablet 3-05 00:00: 00 07-31 00:00 :00 No [id number] 600mg Take 1 tablet by mouth every 6 (six) hours as needed for Pain (scale 4-6). [facility] citalopram 10 mg tablet 2- 00:00: 00 Yes 10mg Take 1 tablet by mouth in the morning. [facility] citalopram 10 mg tablet 2-17 00:00: 00 02-26 00:00 :00 No 1{tbl} Take 1 tablet by mouth in the morning. [facility] QUEtiapine 400 mg tablet 2-17 00:00: 00 02-26 00:00 :00 No [facility] gabapentin 600 mg tablet 2-17 00:00: 00 02-26 00:00 :00 No [facility] methylPREDN ISolone (MEDROL, ANABELA,) 4 mg tablets 2- 00:00: 00 Yes [id number] Take by mouth SEE-INSTRU CTIONS. follow package directions [facility] bromphenira mine-pseudo ephedrine-D M (BROMFED DM) 2-30-10 mg/5 mL syrup 2-11 00:00: 00 07-04 05:59 :00 No [id number] 5mL Take 5 mL by mouth 4 (four) times daily as needed for Cold symptoms for up to 10 days. [facility] methocarbam oL 750 mg tablet 06-23 00:00: 00 07-01 05:59 :00 No [id number] 750mg Take 1 tablet by mouth 4 (four) times daily for 7 days. [facility] magnesium sulfate in water 2 gram/50 mL (4 %) infusion 2 g 2021-05 21:00: 00 05-05 21:15 :00 No 2g 2 g, IV Piggyback, Administer over 15 Minutes, ONCE, 1 dose, On 05/05/22 at 1500, [facility] butalbital- acetaminoph en-caff (ESGIC) 50-325-40 mg tablet 1 tablet 2021-05 20:15: 00 05-05 20:56 :00 No 1{tbl} 1 tablet, Oral, ONCE, 1 dose, On 05/05/22 at 1415, [facility] dexamethaso ne sod phos PF injection 10 mg 2021-05 20:15: 00 05-05 21:00 :00 No 10mg 10 mg, Slow IV Push, ONCE, 1 dose, On 05/05/22 at 1415, 1 mL [facility] NaCl 0.9% (NS) bolus infusion 1,000 mL 2021-05 20:00: 00 05-05 21:45 :00 No 1000mL at 999 mL/hr, 1,000 mL, IV Infusion, ONCE, 1 dose, On 05/05/22 at 1400, [facility] diphenhydrA MINE (BENADRYL) injection 25 mg 2021-05 19:15: 00 05-05 19:42 :00 No 25mg 25 mg, Slow IV Push, ONCE, 1 dose, On 05/05/22 at 1315, STAT [facility] ondansetron (ZOFRAN (PF)) injection 4 mg 2021-05 19:15: 00 05-05 19:45 :00 No 4mg 4 mg, Slow IV Push, ONCE, 1 dose, On 05/05/22 at 1315, [place] [facility] ketorolac (TORADOL) injection 30 mg 2021-05 19:15: 00 05-05 19:44 :00 No 30mg 30 mg, Slow IV Push, ONCE, 1 dose, On 05/05/22 at 1315, Routine [facility] butalbital- acetaminoph en-caff 50-325-40 mg tablet 2021-05 00:00: 00 Yes [id number] 1{tbl} Take 1 tablet by mouth every 4 (four) hours as needed for Pain (scale 7-10). [facility] HYDROcodone -acetaminop hen (NORCO) 10-325 mg tablet 1 tablet 2021-05 16:30: 00 04-26 15:23 :00 No 1{tbl} 1 tablet, Oral, ONCE, 1 dose, On Kathie 04/26/22 at 1030, Routine [facility] diphenhydrA MINE (BENADRYL) tablet 25 mg 2021-05 15:45: 00 04-26 15:53 :00 No 25mg 25 mg, Oral, ONCE, 1 dose, On Kathie 04/26/22 at 0945, [place] [facility] NaCl 0.9% (NS) bolus infusion 1,000 mL 2021-05 15:45: 00 04-26 15:55 :00 No 1000mL at 999 mL/hr, 1,000 mL, IV Piggyback, ONCE, 1 dose, On Kathie 04/26/22 at 0945, STAT [facility] ondansetron (ZOFRAN (PF)) injection 4 mg 2021-05 14:45: 00 04-26 14:52 :00 No 4mg 4 mg, Slow IV Push, ONCE, 1 dose, On Kathie 04/26/22 at 0845, Routine [facility] cephALEXin (KEFLEX) 500 mg capsule 2021-05 00:00: 00 05-04 05:59 :00 No [id number] 500mg Take 1 capsule by mouth in the morning and 1 capsule at noon and 1 capsule in the evening. Do all this for 7 days. [facility] ondansetron (ZOFRAN) 4 mg tablet 2021-05 00:00: 00 07-31 00:00 :00 No 4mg Take 1 tablet by mouth every 8 (eight) hours as needed for Nausea and Vomiting (N/V). [facility] galcanezuma b-gnlm prefilled (EMGALITY) subcutaneou s injection 2021-05 00:00: 00 02-26 00:00 :00 No [id number] 120mg inject 120 mg under the skin once every month. [facility] methocarbam oL (ROBAXIN) injection 1,000 mg 2021-05 04:00: 00 Yes 1000mg 1,000 mg, Intravenou s, Q8H, First dose on 04/07/22 at 2200, Until Discontinu ed, Routine [facility] ketorolac (TORADOL) injection 30 mg 2021-05 00:45: 00 04-07 23:45 :00 No 30mg 30 mg, Slow IV Push, ONCE, 1 dose, On 04/07/22 at 1845, Routine [facility] HYDROcodone -acetaminop hen (NORCO) 10-325 mg tablet 1 tablet 2021-05 00:30: 00 04-07 23:45 :00 No 1{tbl} 1 tablet, Oral, ONCE NOW, 1 dose, On 04/07/22 at 1830, Routine [facility] diphenhydrA MINE (BENADRYL) injection 12.5 mg 2021-05 23:45: 00 04-07 23:46 :00 No 12.5mg 12.5 mg, Slow IV Push, ONCE, 1 dose, On 04/07/22 at 1745, STAT [facility] butorphanol (STADOL) injection 1 mg 2021-05 23:15: 00 04-07 22:48 :00 No 1mg 1 mg, IV Push, ONCE, 1 dose, On 04/07/22 at 1715, Routine [facility] NaCl 0.9% (NS) bolus infusion 1,000 mL 2021-05 23:15: 00 04-07 23:49 :00 No 1000mL at 999 mL/hr, 1,000 mL, IV Infusion, ONCE, 1 dose, On 04/07/22 at 1715, [place] [facility] ketorolac (TORADOL) injection 15 mg 2021-05 19:30: 00 03-24 18:45 :00 No 15mg 15 mg, Slow IV Push, ONCE, 1 dose, On 03/24/22 at 1330, Routine [facility] butorphanol (STADOL) injection 1 mg 2021-05 18:00: 00 03-24 17:26 :00 No 1mg 1 mg, Intravenou s, ONCE, 1 dose, On 03/24/22 at 1200, Routine [facility] proMETHazin e (PHENERGAN) 25 mg in NaCl 0.9% (NS) 50 mL IV piggyback 2021-05 18:00: 00 03-24 18:13 :00 No 25mg 25 mg, IV Piggyback, ONCE, 1 dose, On 03/24/22 at 1200, [place] [facility] butorphanol (STADOL) injection 1 mg 2021-05 17:15: 00 03-24 16:26 :00 No 1mg 1 mg, IV Push, ONCE, 1 dose, On 03/24/22 at 1115, Routine [facility] diphenhydrA MINE (BENADRYL) injection 25 mg 2021-05 15:30: 00 03-24 15:40 :00 No 25mg 25 mg, Slow IV Push, ONCE, 1 dose, On 03/24/22 at 0930, [place] [facility] ondansetron (ZOFRAN (PF)) injection 4 mg 2021-05 15:30: 00 03-24 14:25 :00 No 4mg 4 mg, Slow IV Push, ONCE, 1 dose, On 03/24/22 at 0930, [place] [facility] NaCl 0.9% (NS) IV infusion 1,000 mL 2021-05 15:15: 00 03-24 17:25 :00 No 1000mL at 999 mL/hr, Intravenou s, ONCE, 1 dose, On 03/24/22 at 0915, [place] [facility] magnesium sulfate in water 2 gram/50 mL (4 %) infusion 2 g 2021-05 15:00: 00 03-24 14:47 :00 No 2g 2 g, IV Piggyback, Administer over 20 Minutes, ONCE, 1 dose, On 03/24/22 at 0900, Routine [facility] dexamethaso ne sod phos PF injection 6 mg 2021-05 14:15: 00 03-24 14:14 :00 No 6mg 6 mg, Slow IV Push, ONCE, 1 dose, On 03/24/22 at 0815, 1 mL [facility] diphenhydrA MINE (BENADRYL) injection 25 mg 2021-05 14:15: 00 03-24 14:16 :00 No 25mg 25 mg, Slow IV Push, ONCE, 1 dose, On 03/24/22 at 0815, STAT [facility] ALBUTEROL INHALE 2021-05 07:58: 13 03-24 00:00 :00 No [facility] rizatriptan 10 mg tablet 2021-05 00:00: 00 02-26 00:00 :00 No [id number] 10mg Take 1 tablet by mouth as needed for Migraine. May repeat in 2 hours if needed [facility] Butalbital- Acetaminoph en-Caff (FIORICET) 50-300-40 mg per capsule 2021-05 00:00: 00 02-26 00:00 :00 No [id number] 1{capsu le} Take 1 capsule by mouth every 6 (six) hours as needed for Other (headache) . [facility] magnesium oxide 200 mg magnesium Tab 2021-05 00:00: 00 04-07 00:00 :00 No [id number] 200mg Take 200 mg by mouth 2 (two) times daily. Indication s: headache [facility] SUMAtriptan 50 mg tablet 2021-05 00:00: 00 02-26 00:00 :00 No 50mg Take 1 tablet by mouth as needed for Migraine. Take one tablet at onset of migraine, may take another tablet 2 hours after initial dose if no relief with first dose. DO NOT EXCEED 100mg in a 24 hour period. [facility] FENTanyl PF (SUBLIMAZE (PF)) injection 50 mcg 2021-05 15:30: 00 03-15 14:56 :00 No 50ug 50 mcg, Slow IV Push, ONCE, 1 dose, On [place] 03/15/22 at 1030, Routine [facility] proMETHazin e (PHENERGAN) tablet 25 mg 2021-05 14:45: 00 03-15 14:55 :00 No 25mg 25 mg, Oral, ONCE, 1 dose, On [place] 03/15/22 at 0945, [place] [facility] FENTanyl PF (SUBLIMAZE (PF)) injection 50 mcg 2021-05 14:45: 00 03-15 13:58 :00 No 50ug 50 mcg, Slow IV Push, ONCE, 1 dose, On [place] 03/15/22 at 0945, Routine [facility] ondansetron (ZOFRAN (PF)) injection 4 mg 2021-05 14:00: 00 03-15 13:58 :00 No 4mg 4 mg, Slow IV Push, ONCE, 1 dose, On [place] 03/15/22 at 0900, [place] [facility] carvediloL 25 mg tablet 2021-05 00:00: 00 09-05 00:00 :00 No [id number] 25mg Take 1 tablet by mouth in the morning and 1 tablet in the evening. Take with meals. [facility] ondansetron 4 mg disintegrat ing tablet 2021-05 00:00: 04-07 00:00 :00 No [id number] 4mg Take 1 tablet by mouth every 8 (eight) hours as needed for Nausea and Vomiting (N/V). [facility] ketorolac 10 mg tablet 2021-05 00:00: 04-07 00:00 :00 No [id number] 10mg Take 1 tablet by mouth every 6 (six) hours as needed for Pain (scale 7-10). [facility] proMETHazin e 25 mg tablet 2021-05 00:00: 00 04-07 00:00 :00 No [id number] 25mg Take 1 tablet by mouth every 6 (six) hours as needed for N/V unresponsi ve to Ondansetro n. [facility] cephALEXin 500 mg capsule 2021-05 00:00: 00 03-19 05:59 :00 No [id number] 500mg Take 1 capsule by mouth 4 (four) times daily for 3 days. [facility] predniSONE 20 mg tablet 2021-05 00:00: 00 03-15 04:59 :00 No [id number] 20mg Take 1 tablet by mouth in the morning for 2 days. [facility] methocarbam oL (ROBAXIN) tablet 500 mg 2021-05 16:45: 00 03-11 17:08 :00 No 500mg 500 mg, Oral, ONCE, 1 dose, On 03/11/22 at 1200, [place] [facility] dexamethaso ne sod phos PF injection 10 mg 2021-05 16:00: 00 03-11 16:00 :00 No 10mg 10 mg, Slow IV Push, ONCE, 1 dose, On 03/11/22 at 1100, 1 mL [facility] diphenhydrA MINE (BENADRYL) injection 25 mg 2021-05 15:46: 00 03-11 16:00 :00 No 25mg 25 mg, Slow IV Push, ONCE, 1 dose, On 03/11/22 at 1100, STAT [facility] NaCl 0.9% (NS) IV infusion 1,000 mL 2021-05 15:45: 00 03-11 16:04 :00 No 1000mL at 999 mL/hr, Intravenou s, ONCE, 1 dose, On 03/11/22 at 1045, Routine [facility] butalbital- acetaminoph en-caff (ESGIC) 50-325-40 mg tablet 1 tablet 2021-05 15:00: 00 03-11 15:05 :00 No 1{tbl} 1 tablet, Oral, ONCE, 1 dose, On Sat03/11/22 at 1015, [place] [facility] ketorolac (TORADOL) injection 15 mg 2021-05 14:45: 00 03-11 15:05 :00 No 15mg 15 mg, Slow IV Push, ONCE, 1 dose, On 03/11/22 at 0945, [place] [facility] proMETHazin e (PHENERGAN) 12.5 mg in NaCl 0.9% (NS) 50 mL IV piggyback 2021-05 14:45: 00 03-11 15:04 :00 No 12.5mg 12.5 mg, IV Piggyback, ONCE, 1 dose, On 03/11/22 at 0945, [place] [facility] proMETHazin e 25 mg tablet 2021-05 00:00: 00 07-31 00:00 :00 No [id number] 25mg Take 1 tablet by mouth every 6 (six) hours as needed for Nausea and Vomiting (N/V). [facility] methocarbam oL 500 mg tablet 2021-05 00:00: 00 04-07 00:00 :00 No [id number] 500mg Take 1 tablet by mouth 3 (three) times daily as needed for Pain (scale 7-10). [facility] topiramate 25 mg tablet 2021-05 00:00: 00 02-26 00:00 :00 No [id number] 100mg Take 4 tablets by mouth in the morning. [facility] diphenhydrA MINE 25 mg capsule 2021-05 09:39: 59 02-27 00:00 :00 No 25mg Take 25 mg by mouth every 6 (six) hours as needed for Allergies. [facility] citalopram hydrobromid e (CITALOPRAM ORAL) 2021-05 09:39: 49 02-27 00:00 :00 No Take by mouth. [facility] carbamazepi ne (TEGRETOL ORAL) 2021-05 09:39: 28 02-27 00:00 :00 No Take by mouth. [facility] albuterol 90 mcg/actuati on inhaler 2021-05 00:00: 00 02-26 00:00 :00 No [id number] 2{puff} Inhale 2 Puffs every 6 (six) hours as needed for Wheezing or Shortness of Breath. [facility] SUMAtriptan 50 mg tablet 2021-05 00:00: 00 03-21 00:00 :00 No 50mg Take 50 mg by mouth as needed for Migraine. Take one tablet at onset of migraine, may take another tablet 2 hours after initial dose if no relief with first dose. DO NOT EXCEED 100mg in a 24 hour period. [facility] benzonatate 200 mg capsule 2021-05 00:00: 00 03-07 04:59 :00 No [id number] 200mg Take 1 capsule by mouth 3 (three) times daily as needed for Cough for up to 7 days. [facility] butalbital- acetaminoph en-caff (ESGIC) 50-325-40 mg tablet 1 tablet 2021-05 08:15: 00 02-21 08:09 :00 No 1{tbl} 1 tablet, Oral, ONCE, 1 dose, On Sat02/21/22 at 0315, [place] [facility] butorphanol (STADOL) injection 1 mg 2021-05 08:15: 00 02-21 07:28 :00 No 1mg 1 mg, IV Push, ONCE, 1 dose, On Sat02/21/22 at 0315, Routine [facility] NaCl 0.9% (NS) bolus infusion 1,000 mL 2021-05 07:15: 00 02-21 08:40 :00 No 1000mL at 999 mL/hr, 1,000 mL, IV Infusion, ONCE, 1 dose, On Sat02/21/22 at 0215, [place] [facility] proMETHazin e (PHENERGAN) 12.5 mg in NaCl 0.9% (NS) 50 mL IV piggyback 2021-05 06:30: 00 02-21 06:38 :00 No 12.5mg 12.5 mg, IV Piggyback, ONCE, 1 dose, On Sat02/21/22 at 0130[facility] phos PF [facility] 10 mg 2021-05 06:30: 00 02-21 06:38 :00 No 10mg 10 mg, Slow IV Push, ONCE, 1 dose, On Sat02/21/22 at 0130, 1 mL [facility] ketorolac (TORADOL) injection 15 mg 2021-05 06:30: 00 02-21 06:38 :00 No 15mg 15 mg, Slow IV Push, ONCE, 1 dose, On Sat02/21/22 at 0130, [facility] diphenhydrA MINE (BENADRYL) injection 25 mg 2021-05 06:30: 00 02-21 06:38 :00 No 25mg 25 mg, Slow IV Push, ONCE, 1 dose, On Sat02/21/22 at 0130, STAT [facility] FENTanyl PF (SUBLIMAZE (PF)) injection 50 mcg 2021-05 20:30: 00 02-18 19:44 :00 No 50ug 50 mcg, Slow IV Push, ONCE, 1 dose, On Sat02/18/22 at 1530, Routine [facility] ketorolac (TORADOL) injection 30 mg 2021-05 20:15: 00 02-18 20:09 :00 No 30mg 30 mg, Slow IV Push, ONCE, 1 dose, On [place] 02/18/22 at 1515[facility] iop[facility] (ISOVUE 370-500 mL) injection 60 mL 2021-05 19:30: 00 02-18 17:30 :00 No [id number] 60mL 60 mL, Intravenou s, ONCE, 1 dose, On [place] 02/18/22 at 1430, Routine [facility] proMETHazin e (PHENERGAN) 12.5 mg in NaCl 0.9% (NS) 50 mL IV piggyback 2021-05 18:15: 00 02-18 18:19 :00 No 12.5mg 12.5 mg, IV Piggyback, ONCE, 1 dose, On [place] 02/18/22 at 1315, [facility] FENTanyl PF (SUBLIMAZE (PF)) injection 50 mcg 2021-05 18:00: 00 02-18 17:26 :00 No 50ug 50 mcg, Slow IV Push, ONCE, 1 dose, On [place] 02/18/22 at 1300, Routine [facility] ondansetron (ZOFRAN (PF)) injection 4 mg 2021-05 17:15: 00 02-18 17:27 :00 No 4mg 4 mg, Slow IV Push, ONCE, 1 dose, On [place] 02/18/22 at 1215[facility] morpHINE (2 mg/mL) injection 4 mg 01-18 15:15: 00 01-18 14:49 :00 No 4mg 4 mg, Slow IV Push, ONCE, 1 dose, On [place] 01/18/22 at 1015, STAT [facility] ondansetron (ZOFRAN (PF)) injection 4 mg 01-18 13:30: 00 01-18 13:33 :00 No 4mg 4 mg, Slow IV Push, ONCE, 1 dose, On [place] 01/18/22 at 0830, [facility] mor[facility] (4 mg/mL) injection 4 mg 01-18 13:30: 00 01-18 13:34 :00 No 4mg 4 mg, Slow IV Push, ONCE, 1 dose, On [place] 01/18/22 at 0830, STAT [facility] morpHINE (4 mg/mL) injection 4 mg 01-18 12:30: 00 01-18 11:39 :00 No 4mg 4 mg, Slow IV Push, ONCE, 1 dose, On [place] 01/18/22 at 0730, STAT [facility] famotidine (PEPCID (PF)) injection 20 mg 01-18 11:30: 00 01-18 10:52 :00 No 20mg 20 mg, Slow IV Push, ONCE, 1 dose, On [place] 01/18/22 at 0630, [facility] ondansetron (ZOFRAN (PF)) injection 4 mg 01-18 11:30: 00 01-18 10:52 :00 No 4mg 4 mg, Slow IV Push, ONCE, 1 dose, On [place] 01/18/22 at 0630, [facility] iodixanoL (VISIPAQUE 270-150 mL) injection 80 mL 01-18 11:21: 00 01-18 11:15 :00 No [id number] 80mL 80 mL, Intravenou s, ONCE, 1 dose, On [place] 01/18/22 at 0630, Routine [facility] NaCl 0.9% (NS) bolus infusion 1,000 mL 01-18 11:15: 00 01-18 12:59 :00 No 1000mL at 999 mL/hr, 1,000 mL, IV Infusion, ONCE, 1 dose, On [place] 01/18/22 at 0615, [facility] morpHINE (4 mg/mL) injection 4 mg 01-18 10:45: 00 01-18 10:52 :00 No 4mg 4 mg, Slow IV Push, ONCE, 1 dose, On [place] 01/18/22 at 0545, STAT [facility] traMADoL 50 mg tablet 01-18 00:00: 02-27 00:00 :00 No [id number] 50mg Take 1 tablet by mouth every 6 (six) hours as needed for Pain (scale 7-10). Indication s: acute pain [facility] ondansetron 4 mg disintegrat ing tablet 01-18 00:00: 00 02-27 00:00 :00 No [id number] 4mg Take 1 tablet by mouth every 8 (eight) hours as needed for Nausea and Vomiting (N/V). [facility] ibuprofen 600 mg tablet 01-18 00:00: 00 02-27 00:00 :00 No [id number] 600mg Take 1 tablet by mouth every 6 (six) hours as needed for Pain (scale 4-6). [facility] predniSONE 20 mg tablet 01-16 00:00: 00 01-24 04:59 :00 No [id number] 40mg Take 2 tablets by mouth in the morning for 7 days. [facility] morpHINE (4 mg/mL) injection 4 mg 01-15 16:15: 00 01-15 15:28 :00 No 4mg 4 mg, Slow IV Push, ONCE, 1 dose, On Sat01/15/22 at 1115, [facility] proMETHazin e (PHENERGAN) 12.5 mg in NaCl 0.9% (NS) 50 mL IV piggyback 01-15 15:30: 00 01-15 15:28 :00 No 12.5mg 12.5 mg, IV Piggyback, ONCE, 1 dose, On Sat01/15/22 at 1030, [facility] NaCl 0.9% (NS) bolus infusion 1,000 mL 01-15 15:00: 00 01-15 15:38 :00 No 1000mL at 999 mL/hr, 1,000 mL, IV Infusion, ONCE, 1 dose, On Sat01/15/22 at 1000, [facility] morpHINE (4 mg/mL) injection 4 mg 01-15 15:00: 00 01-15 14:37 :00 No 4mg 4 mg, Slow IV Push, ONCE, 1 dose, On Sat01/15/22 at 1000, [facility] ondansetron (ZOFRAN (PF)) injection 8 mg 01-15 14:15: 00 01-15 14:37 :00 No 8mg 8 mg, Slow IV Push, ONCE, 1 dose, On Sat01/15/22 at 0915, [facility] dexamethaso ne sod phos PF injection 10 mg 01-15 14:15: 00 01-15 14:37 :00 No 10mg 10 mg, Slow IV Push, ONCE, 1 dose, On Sat01/15/22 at 0915, 1 mL [facility] proMETHazin e 25 mg tablet 01-15 00:00: 00 02-27 00:00 :00 No [id number] 25mg Take 1 tablet by mouth every 6 (six) hours as needed for Nausea and Vomiting (N/V). [facility] ondansetron (ZOFRAN-ODT ) disintegrat ing tablet 4 mg 01-09 01:45: 00 01-09 00:56 :00 No 4mg 4 mg, Oral, ONCE, 1 dose, On Sat01/08/22 at 2045, Routine [facility] HYDROcodone -acetaminop hen (NORCO 5) 5-325 mg tablet 1 tablet 01-09 00:45: 00 01-09 00:37 :00 No 1{tbl} 1 tablet, Oral, ONCE, 1 dose, On Sat01/08/22 at 1945, [facility] diphenhydrA MINE (BENADRYL) injection 25 mg 01-08 23:45: 00 01-08 23:51 :00 No 25mg 25 mg, Slow IV Push, ONCE, 1 dose, On Sat01/08/22 at 1845, STAT [facility] dexamethaso ne sod phos PF injection 10 mg 01-08 23:45: 00 01-08 23:50 :00 No 10mg 10 mg, Slow IV Push, ONCE, 1 dose, On Sat01/08/22 at 1845, 1 mL [facility] ketorolac (TORADOL) injection 30 mg 01-08 23:45: 00 01-08 23:51 :00 No 30mg 30 mg, Slow IV Push, ONCE, 1 dose, On Sat01/08/22 at 1845, [place] [facility] acetaminoph en (TYLENOL ARTHRITIS PAIN) 650 mg CR tablet 01-08 00:00: 00 04-07 00:00 :00 No [id number] 650mg Take 1 tablet by mouth every 8 (eight) hours as needed for Pain. [facility] ondansetron 4 mg disintegrat ing tablet 01-08 00:00: 00 02-27 00:00 :00 No [id number] 4mg Take 1 tablet by mouth every 8 (eight) hours as needed for Nausea and Vomiting (N/V). [facility] ketorolac 10 mg tablet 01-08 00:00: 00 02-27 00:00 :00 No [id number] 10mg Take 1 tablet by mouth every 6 (six) hours as needed for Pain (scale 4-6) or Pain (scale 7-10). [facility] metaxalone (SKELAXIN) 800 mg tablet 01-08 00:00: 00 02-27 00:00 :00 No [id number] 800mg Take 1 tablet by mouth in the morning and 1 tablet at noon and 1 tablet in the evening. [facility] metroNIDAZO LE 500 mg tablet 12-18 00:00: 00 02-27 00:00 :00 No 500mg Take 1 tablet by mouth every 12 (twelve) hours. [facility] trazodone/d ietary supp. no.8 (TRAZAMINE ORAL) 12-12 15:08: 46 12-12 00:00 :00 No Take by mouth. [facility] diphenhydrA MINE 25 mg capsule 12-12 13:03: 04 Yes 25mg Take 25 mg by mouth every 6 (six) hours as needed for Allergies. [facility] carbamazepi ne (TEGRETOL ORAL) 12-12 13:03: 04 Yes Take by mouth. [facility] traZODone 50 mg tablet 12-12 00:00: 00 02-27 00:00 :00 No [id number] 50mg Take 1 tablet by mouth at bedtime. [facility] SERTraline (ZOLOFT) 50 mg tablet 12-12 00:00: 00 02-27 00:00 :00 No [id number] 50mg Take 1 tablet by mouth in the morning. [facility] sulfamethox azole-trime thoprim (BACTRIM DS) 800-160 mg per tablet 12-12 00:00: 00 12-16 04:59 :00 No [id number] 1{tbl} Take 1 tablet by mouth in the morning and 1 tablet in the evening. Do all this for 3 days. [facility] ibuprofen 600 mg tablet 11-24 00:00: 00 02-27 00:00 :00 No [id number] 600mg Take 1 tablet by mouth every 6 (six) hours as needed for Pain (scale 4-6). [facility] acetaminoph en-codeine 300-30 mg tablet 11-24 00:00: 00 12-12 00:00 :00 No [id number] 1{tbl} Take 1 tablet by mouth every 4 (four) hours as needed for Pain (scale 4-6). Indication s: acute pain [facility] bromphenira mine-pseudo ephedrine-D M (BROMFED DM) 2-30-10 mg/5 mL syrup 11-18 00:00: 00 03-24 00:00 :00 No [id number] 5mL Take 5 mL by mouth 4 (four) times daily as needed for Congestion /Allergies or Cough. [facility] naproxen 500 mg tablet 11-18 00:00: 00 02-27 00:00 :00 No [id number] 500mg Take 1 tablet by mouth every 8 (eight) hours as needed for Pain (scale 4-6). [facility] cyclobenzap rine 10 mg tablet 11-18 00:00: 00 02-27 00:00 :00 No [id number] 10mg Take 1 tablet by mouth at bedtime as needed for Muscle Spasms. [facility] ibuprofen 100 mg/5 mL oral suspension 10-25 00:00: 00 02-27 00:00 :00 No [id number] 605mg Take 30.25 mL by mouth every 6 (six) hours as needed for Pain (scale 4-6) or Temp > 38.5 C. [facility] acetaminoph en 160 mg/5 mL liquid 15 00:00: 00 12-12 00:00 :00 No [id number] 608mg Take 19 mL by mouth every 6 (six) hours as needed for Fever. [facility] DULoxetine 60 mg capsule 10-06 00:00: 00 02-27 00:00 :00 No [facility] traZODone 50 mg tablet 10-06 00:00: 00 12-12 00:00 :00 No [facility] mometasone 50 mcg/actuati on nasal spray 09-28 00:00: 00 02-27 00:00 :00 No [id number] 1{spray } Use 1 [place] in each nostril 2 (two) times daily. [facility] cetirizine (ZYRTEC) 10 mg tablet 16 00:00: 00 02-27 00:00 :00 No [id number] 10mg Take 1 tablet by mouth daily. [facility] DULoxetine 30 mg capsule - 00:00: 00 02-27 00:00 :00 No [facility] gabapentin 300 mg capsule 09-18 00:00: 00 02-27 00:00 :00 No [facility] ondansetron 4 mg tablet - 00:00: 00 02-27 00:00 :00 No [facility] amLODIPine 5 mg tablet 09-01 00:00: 00 02-27 00:00 :00 No 5mg Take 5 mg by mouth. [facility] buPROPion XL 150 mg 24 hr tablet 08-30 00:00: 00 02-27 00:00 :00 No 150mg Take 150 mg by mouth. [facility] proMETHazin e 25 mg tablet 08-15 00:00: 00 09-12 00:00 :00 No [id number] 25mg Take 1 tablet by mouth every 6 (six) hours as needed for Nausea and Vomiting (N/V). [facility] traMADoL 50 mg tablet 08-15 00:00: 00 09-12 00:00 :00 No [id number] 50mg Take 1 tablet by mouth every 6 (six) hours as needed (pain). Indication s: acute pain [facility] cyclobenzap rine 10 mg tablet 08-07 00:00: 00 08-22 04:59 :00 No [id number] 10mg Take 1 tablet by mouth 3 (three) times daily for 14 days. [facility] ibuprofen 800 mg tablet - 00:00: 00 08-22 04:59 :00 No [id number] 800mg Take 1 tablet by mouth every 6 (six) hours as needed for Pain (scale 1-3) for up to 14 days. [facility] diclofenac 75 mg EC tablet - 00:00: 00 09-12 00:00 :00 No [facility] orphenadrin e 100 mg SR tablet 3 00:00: 00 09-12 00:00 :00 No [facility] divalproex 125 mg EC tablet 3-11 00:00: 00 09-12 00:00 :00 No [id number] 125mg Take 1 tablet by mouth every 12 (twelve) hours. [facility] divalproex Sprinkles 125 mg SPRINKLE capsule 3- 00:00: 00 09-12 00:00 :00 No [facility] ibuprofen 600 mg tablet 3- 00:00: 00 08-01 04:59 :00 No [id number] 600mg Take 1 tablet by mouth every 6 (six) hours as needed for Temp > 38.5 C for up to 14 days. [facility] acetaminoph en-codeine 300-30 mg tablet 1- 00:00: 00 09-12 00:00 :00 No TAKE 1 TABLET BY MOUTH EVERY 4 HOURS NEEDED FOR PAIN FOR 2 DAYS [facility] fluticasone propionate 110 mcg/actuati on inhaler - 00:00: 00 09-28 00:00 :00 No [id number] 2{puff} Inhale 2 Puffs every 12 (twelve) hours. [facility] benzonatate (TESSALON PERLES) 100 mg capsule 1-13 00:00: 00 09-25 00:00 :00 No [id number] 100mg Take 1 capsule by mouth every 8 (eight) hours as needed for Cough. [facility] carvediloL 25 mg tablet 2020-05 2-30 00:00: 00 02-27 00:00 :00 No 25mg Take 1 tablet by mouth 2 (two) times daily with meals. [facility] losartan 50 mg tablet 2020-05 2-30 00:00: 00 02-27 00:00 :00 No 50mg Take 1 tablet by mouth 2 (two) times daily. [facility] proMETHazin e 25 mg tablet 2020-05 00:00: 00 09-12 00:00 :00 No [facility] methocarbam oL (ROBAXIN) 500 mg tablet 2020-05 00:00: 00 05-25 00:00 :00 No [id number] 500mg Take 1 tablet by mouth every 6 (six) hours as needed (MUSCLE SPASM). [facility] vitamin B-12 (VITAMIN B-12) 500 mcg tablet 2020-05 00:00: 00 09-12 00:00 :00 No [id number] 500ug Take 1 tablet by mouth daily. [facility] methylPREDN ISolone 4 mg tablets 2020-05 00:00: 00 05-25 00:00 :00 No [id number] Follow package directions [facility] fluticasone propion-chel meteroL 115-21 mcg/actuati on inhaler 02-09 00:00: 05-25 00:00 :00 No [id number] 2{puff} Inhale 2 Puffs 2 (two) times daily. Rinse mouth after each use. [facility] albuterol 2.5 mg /3 mL (0.083 %) nebulizer solution 02-09 00:00: 00 05-25 00:00 :00 No [id number] 2.5mg Inhale 3 mL every 6 (six) hours as needed for Wheezing or Shortness of Breath. [facility] methocarbam oL (ROBAXIN) 500 mg tablet 02-09 00:00: 00 05-02 00:00 :00 No [id number] 500mg Take 1 tablet by mouth every 6 (six) hours as needed (MUSCLE SPASM). [facility] bromphenira mine-pseudo ephedrine-D M (BROMFED DM) 2-30-10 mg/5 mL syrup 01-31 00:00: 00 02-09 00:00 :00 No [id number] 5mL Take 5 mL by mouth 4 (four) times daily as needed for Cough. [facility] methylPREDN ISolone (MEDROL, ANABELA,) 4 mg tablets 01-20 00:00: 00 02-09 00:00 :00 No [id number] Take by mouth SEE-INSTRU CTIONS. follow package directions [facility] albuterol 90 mcg/actuati on inhaler 01-12 00:00: 00 05-25 00:00 :00 No [id number] 2{puff} Inhale 2 Puffs every 4 (four) hours as needed for Wheezing or Shortness of Breath. [facility] benzonatate 100 mg capsule 01-12 00:00: 00 02-19 00:00 :00 No [id number] 100mg Take 1 capsule by mouth 3 (three) times daily as needed for Cough. [facility] losartan 50 mg tablet 12-23 00:00: 00 02-09 00:00 :00 No 50mg Take 1 tablet by mouth 2 (two) times daily. [facility] topiramate 25 mg tablet 11-22 00:00: 00 12-26 00:00 :00 No 25mg Take 1 tablet by mouth 2 (two) times daily. [facility] OXcarbazepi ne 150 mg tablet 11-21 00:00: 00 02-09 00:00 :00 No [facility] FLUoxetine 40 mg capsule 11-21 00:00: 00 12-26 00:00 :00 No [facility] traZODone 100 mg tablet 11-21 00:00: 00 12-26 00:00 :00 No [facility] dicyclomine 20 mg tablet 10-20 00:00: 00 12-26 00:00 :00 No [id number] 20mg Take 1 tablet by mouth 4 (four) times daily. [facility] proMETHazin e 25 mg tablet - 00:00: 00 12-26 00:00 :00 No [id number] 25mg Take 1 tablet by mouth every 6 (six) hours as needed for Nausea and Vomiting (N/V). [facility] acetaminoph en-codeine 300-30 mg tablet 605 00:00: 00 12-26 00:00 :00 No TAKE 2 TABLETS BY MOUTH EVERY 6 HOURS NEEDED FOR PAIN [facility] oxybutynin (DITROPAN XL) 10 mg 24 hr tablet 10-09 00:00: 00 12-26 00:00 :00 No [id number] 10mg Take 1 tablet by mouth daily. [facility] ondansetron (ZOFRAN ODT) 4 mg disintegrat ing tablet 10-09 00:00: 00 12-26 00:00 :00 No [id number] 4mg Take 1 tablet by mouth every 8 (eight) hours as needed for Nausea and Vomiting (N/V). [facility] ciprofloxac in HCl 500 mg tablet 10-09 00:00: 00 11-22 00:00 :00 No [id number] 500mg Take 1 tablet by mouth 2 (two) times daily. [facility] predniSONE 20 mg tablet 10-04 00:00: 00 11-22 00:00 :00 No [id number] 20mg Take 1 tablet by mouth daily. Days 1-2: 3 pills (60 mg). Days 3-4: 2 pills (40 mg). Days 5-6: 1 pill (20 mg). Days 7-8: 1/2 pill (10 mg). Then stop [facility] mupirocin 2 % ointment 20 00:00: 00 12-26 00:00 :00 No [id number] Apply to both nostrils at bedtime [facility] naproxen sodium (ANAPROX DS) 550 mg tablet 19 00:00: 00 12-26 00:00 :00 No [id number] 550mg Take 1 tablet by mouth 2 (two) times daily with meals. [facility] losartan 25 mg tablet 09-16 00:00: 00 12-22 00:00 :00 No 25mg Take 1 tablet by mouth 2 (two) times daily. [facility] nadoloL 20 mg tablet 09-16 00:00: 00 12-22 00:00 :00 No [id number] Please take Nadalol 40 mg QAM [facility] LOESTRIN FE (LOESTRIN FE 1/20) 1 mg-20 mcg (21)/75 mg (7) tablet 09-06 00:00: 00 02-09 00:00 :00 No [id number] 1{tbl} Take 1 tablet by mouth daily. [facility] FLUoxetine 20 mg capsule 09-06 00:00: 00 11-22 00:00 :00 No [id number] 20mg Take 1 capsule by mouth daily. [facility] traZODone 50 mg tablet 09-06 00:00: 00 11-22 00:00 :00 No [id number] 50mg Take 1 tablet by mouth at bedtime. [facility] nadoloL 20 mg tablet 08-31 00:00: 00 09-16 00:00 :00 No [id number] Please take Nadalol 40 mg QAM and 20 mg QPM [facility] methocarbam oL (ROBAXIN) 500 mg tablet 08-18 00:00: 00 09-30 00:00 :00 No [id number] 500mg Take 1 tablet by mouth every 6 (six) hours as needed (MUSCLE SPASM). [facility] traMADoL (ULTRAM) 50 mg tablet 08-18 00:00: 00 09-30 00:00 :00 No [id number] 50mg Take 1 tablet by mouth every 6 (six) hours as needed for Pain (scale 7-10). Indication s: acute pain [facility] ibuprofen 800 mg tablet 08-14 00:00: 00 11-22 00:00 :00 No TAKE 1 TABLET BY MOUTH EVERY 12 HOURS NEEDED FOR PAIN [facility] ondansetron (ZOFRAN ODT) 4 mg disintegrat ing tablet 08-01 00:00: 00 09-30 00:00 :00 No [id number] 4mg Take 1 tablet by mouth every 8 (eight) hours as needed for Nausea and Vomiting (N/V). [facility] ketorolac 10 mg tablet 08-01 00:00: 00 09-30 00:00 :00 No [id number] 10mg Take 1 tablet by mouth every 6 (six) hours as needed for Pain (scale 4-6). [facility] ciprofloxac in HCl 250 mg tablet 08-01 00:00: 00 09-30 00:00 :00 No [id number] 250mg Take 1 tablet by mouth 2 (two) times daily. [facility] lidocaine 5 % (700 mg/patch) patch 07-22 00:00: 00 09-30 00:00 :00 No [id number] 1{patch } Apply 1 Patch to area(s) every 24 (twenty-fo ur) hours as needed for Localized pain. [facility] topiramate 25 mg tablet 05-17 00:00: 00 11-22 00:00 :00 No 25mg Take 1 tablet by mouth 2 (two) times daily. [facility] metoprolol succinate XL 25 mg 24 hr tablet 2019-05 00:00: 00 06-15 00:00 :00 No [id number] 12.5mg Take 0.5 tablets by mouth 2 (two) times daily for 90 days. [facility] FLUoxetine 20 mg capsule 2019-05 00:00: 00 09-06 00:00 :00 No 20mg Take 20 mg by mouth daily. [facility] norgestimat e-ethinyl estradiol 0.25-35 mg-mcg per tablet 11-17 00:00: 04-15 00:00 :00 No [id number] 1{tbl} Take 1 tablet by mouth daily. [facility] buPROPion XL (WELLBUTRIN XL) 150 mg 24 hr tablet 02 00:00: 01-04 00:00 :00 No [id number] 150mg Take 1 tablet by mouth daily. [facility] acetaminoph en 325 mg tablet 07-22 00:00: 00 01-04 00:00 :00 No [id number] 650mg Take 2 tablets by mouth every 6 (six) hours as needed for Pain (scale 1-3) or Pain (scale 4-6). [facility] vitamin w/FA tablet 07-22 00:00: 01-04 00:00 :00 No [id number] 1{tbl} Take 1 tablet by mouth daily. [facility] docusate calcium 240 mg capsule 07-22 00:00: 01-04 00:00 :00 No [id number] 240mg Take 1 capsule by mouth once daily as needed for Constipati on. [facility] ferrous sulfate 325 mg (65 mg iron) tablet 07-22 00:00: 01-04 00:00 :00 No [id number] 325mg Take 1 tablet by mouth 2 (two) times daily. [facility] ibuprofen 600 mg tablet 07-22 00:00: 00 01-04 00:00 :00 No [id number] 600mg Take 1 tablet by mouth every 6 (six) hours as needed (Pain). Take with food or milk. [facility] ALBUTEROL 90 mcg/actuati on inhaler 1-14 00:00: 05-01 00:00 :00 No [id number] 103 INHALE 2 PUFFS BY MOUTH EVERY 6 HOURS NEEDED FOR WHEEZING FOR SHORTNESS OF BREATH [facility] buPROPion SR (WELLBUTRIN SR) 150 mg SR tablet 05-21 00:00: 00 01-04 00:00 :00 No [id number] 150mg Take 1 tablet by mouth 2 (two) times daily. [facility] busPIRone 10 mg tablet 2020-0 1-09 00:00: 00 01-04 00:00 :00 No [id number] 109 10mg Take 1 tablet by mouth 3 (three) times daily. [facility] Immunizations Ordered Immunization Name Filled Immunization Name Date Status Comments Source Influenza Virus Vaccine Quad IM, Preserv and ABX Free 6 MO-64 YRS 2022-02-27 00:00:00 Completed [facility] Influenza Virus Vaccine Quad IM, Preserv and ABX Free 6 MO-64 YRS 2022-02-27 00:00:00 Completed [facility] Influenza Virus Vaccine Quad IM, Preserv and ABX Free 6 MO-64 YRS 2022-02-27 00:00:00 Completed [facility] Influenza Virus Vaccine Quad IM, Preserv and ABX Free 6 MO-64 2022-02-27 00:00:00 Completed [facility] Influenza Virus Vaccine Quad IM, Preserv and ABX Free 6 MO-64 YRS 2022-02-27 00:00:00 Completed [facility] Influenza Virus Vaccine Quad IM, Preserv and ABX Free 6 MO-64 2022-02-27 00:00:00 Completed [facility] Influenza Virus Vaccine Quad IM, Preserv and ABX Free 6 MO-64 YRS 2022-02-27 00:00:00 Completed [facility] Influenza Virus Vaccine Quad IM, Preserv and ABX Free 6 MO-64 2022-02-27 00:00:00 Completed [facility] Influenza Virus Vaccine Quad IM, Preserv and ABX Free 6 MO-64 YRS 2022-02-27 00:00:00 Completed [facility] Influenza Virus Vaccine Quad IM, Preserv and ABX Free 6 MO-64 2022-02-27 00:00:00 Completed [facility] Influenza Virus Vaccine Quad IM, Preserv and ABX Free 6 MO-64 YRS 2022-02-27 00:00:00 Completed [facility] Influenza Virus Vaccine Quad IM, Preserv and ABX Free 6 MO-64 2022-02-27 00:00:00 Completed [facility] Influenza Virus Vaccine Quad IM, Preserv and ABX Free 6 MO-64 2022-02-27 00:00:00 Completed [facility] Influenza Virus Vaccine Quad IM, Preserv and ABX Free 6 MO-64 YRS 2022-02-27 00:00:00 Completed [facility] Influenza Virus Vaccine Quad IM, Preserv and ABX Free 6 MO-64 YRS 2022-02-27 00:00:00 Completed [facility] Influenza Virus Vaccine Quad IM, Preserv and ABX Free 6 MO-64 YRS 2022-02-27 00:00:00 Completed [facility] Influenza Virus Vaccine Quad IM, Preserv and ABX Free 6 MO-64 YRS 2022-02-27 00:00:00 Completed [facility] Influenza Virus Vaccine Quad IM, Preserv and ABX Free 6 MO-64 YRS 2022-02-27 00:00:00 Completed [facility] Influenza Virus Vaccine Quad IM, Preserv and ABX Free 6 MO-64 YRS 2022-02-27 00:00:00 Completed [facility] Influenza Virus Vaccine Quad IM, Preserv and ABX Free 6 MO-64 YRS 2022-02-27 00:00:00 Completed [facility] Influenza Virus Vaccine Quad IM, Preserv and ABX Free 6 MO-64 YRS 2022-02-27 00:00:00 Completed [facility] Influenza Virus Vaccine Quad IM, Preserv and ABX Free 6 MO-64 YRS 2022-02-27 00:00:00 Completed [facility] Influenza Virus Vaccine Quad IM, Preserv and ABX Free 6 MO-64 YRS 2022-02-27 00:00:00 Completed [facility] Influenza Virus Vaccine Quad IM, Preserv and ABX Free 6 MO-64 YRS 2022-02-27 00:00:00 Completed [facility] Influenza Virus Vaccine Quad IM, Preserv and ABX Free 6 MO-64 YRS 2022-02-27 00:00:00 Completed [facility] Influenza Virus Vaccine Quad IM, Preserv and ABX Free 6 MO-64 YRS 2022-02-27 00:00:00 Completed [facility] Influenza Virus Vaccine Quad IM, Preserv and ABX Free 6 MO-64 YRS 2022-02-27 00:00:00 Completed [facility] Influenza Virus Vaccine Quad IM, Preserv and ABX Free 6 MO-64 YRS 2022-02-27 00:00:00 Completed [facility] Influenza Virus Vaccine Quad IM, Preserv and ABX Free 6 MO-64 YRS 2022-02-27 00:00:00 Completed [facility] Influenza Virus Vaccine Quad IM, Preserv and ABX Free 6 MO-64 YRS 2022-02-27 00:00:00 Completed [facility] Influenza Virus Vaccine Quad IM, Preserv and ABX Free 6 MO-64 YRS 2022-02-27 00:00:00 Completed [facility] Influenza Virus Vaccine Quad IM, Preserv and ABX Free 6 MO-64 YRS 2022-02-27 00:00:00 Completed [facility] Influenza Virus Vaccine Quad IM, Preserv and ABX Free 6 MO-64 YRS 2022-02-27 00:00:00 Completed [facility] Influenza Virus Vaccine Quad IM, Preserv and ABX Free 6 MO-64 YRS 2022-02-27 00:00:00 Completed [facility] Influenza Virus Vaccine Quad IM, Preserv and ABX Free 6 MO-64 YRS 2022-02-27 00:00:00 Completed [facility] Influenza Virus Vaccine Quad IM, Preserv and ABX Free 6 MO-64 YRS 2022-02-27 00:00:00 Completed [facility] Influenza Virus Vaccine Quad IM, Preserv and ABX Free 6 MO-64 YRS 2022-02-27 00:00:00 Completed [facility] Influenza Virus Vaccine Quad IM, Preserv and ABX Free 6 MO-64 YRS 2022-02-27 00:00:00 Completed [facility] Influenza Virus Vaccine Quad IM, Preserv and ABX Free 6 MO-64 YRS 2022-02-27 00:00:00 Completed [facility] Influenza Virus Vaccine Quad IM, Preserv and ABX Free 6 MO-64 YRS 2022-02-27 00:00:00 Completed [facility] Influenza Virus Vaccine Quad IM, Preserv and ABX Free 6 MO-64 YRS 2022-02-27 00:00:00 Completed [facility] Influenza Virus Vaccine Quad IM, Preserv and ABX Free 6 MO-64 YRS (FLUCELVAX) 2022-02-27 00:00:00 Completed [facility] Influenza Virus Vaccine Quad IM, Preserv and ABX Free 6 MO-64 YRS (FLUCELVAX) 2022-02-27 00:00:00 Completed [facility] Influenza Virus Vaccine Quad IM, Preserv and ABX Free 6 MO-64 YRS (FLUCELVAX) 2022-02-27 00:00:00 Completed [facility] Influenza Virus Vaccine Quad .5 mL IM 6+ MO 2022-02-21 00:00:00 Completed [facility] Influenza Virus Vaccine Quad .5 mL IM 6+ MO 2022-02-21 00:00:00 Completed [facility] Influenza Virus Vaccine Quad .5 mL IM 6+ MO 2022-02-21 00:00:00 Completed [facility] Influenza Virus Vaccine Quad .5 mL IM 6+ MO 2022-02-21 00:00:00 Completed [facility] Influenza Virus Vaccine Quad .5 mL IM 6+ MO 2022-02-21 00:00:00 Completed [facility] Influenza Virus Vaccine Quad .5 mL IM 6+ MO 2022-02-21 00:00:00 Completed [facility] Influenza Virus Vaccine Quad .5 mL IM 6+ MO 2022-02-21 00:00:00 Completed [facility] Influenza Virus Vaccine Quad .5 mL IM 6+ MO 2022-02-21 00:00:00 Completed [facility] Influenza Virus Vaccine Quad .5 mL IM 6+ MO 2022-02-21 00:00:00 Completed [facility] Influenza Virus Vaccine Quad .5 mL IM 6+ MO 2022-02-21 00:00:00 Completed [facility] Influenza Virus Vaccine Quad .5 mL IM 6+ MO 2022-02-21 00:00:00 Completed [facility] Influenza Virus Vaccine Quad .5 mL IM 6+ MO 2022-02-21 00:00:00 Completed [facility] Influenza Virus Vaccine Quad .5 mL IM 6+ MO (FLUZONE/FLULAVAL/F LUARIX) 2022-02-21 00:00:00 Completed [facility] Influenza Virus Vaccine Quad .5 mL IM 6+ MO (FLUZONE/FLULAVAL/F LUARIX) 2022-02-21 00:00:00 Completed [facility] Influenza Virus Vaccine Quad .5 mL IM 6+ MO (FLUZONE/FLULAVAL/F LUARIX) 2022-02-21 00:00:00 Completed [facility] Influenza Virus Vaccine 2021-06-11 00:00:00 Completed [facility] Influenza Virus Vaccine 2021-06-11 00:00:00 Completed [facility] Influenza Virus Vaccine 2021-06-11 00:00:00 Completed [facility] Influenza Virus Vaccine 2021-06-11 00:00:00 Completed [facility] Influenza Virus Vaccine 2021-06-11 00:00:00 Completed [facility] Influenza Virus Vaccine 2021-06-11 00:00:00 Completed [facility] Influenza Virus Vaccine 2021-06-11 00:00:00 Completed [facility] Influenza Virus Vaccine 2021-06-11 00:00:00 Completed [facility] Influenza Virus Vaccine 2021-06-11 00:00:00 Completed [facility] Influenza Virus Vaccine 2021-06-11 00:00:00 Completed [facility] Influenza Virus Vaccine 2021-06-11 00:00:00 Completed [facility] Influenza Virus Vaccine 2021-06-11 00:00:00 Completed [facility] Influenza Virus Vaccine 2021-06-11 00:00:00 Completed [facility] Influenza Virus Vaccine 2021-06-11 00:00:00 Completed [facility] Influenza Virus Vaccine 2021-06-11 00:00:00 Completed [facility] Influenza Virus Vaccine 2021-06-11 00:00:00 Completed [facility] Influenza Virus Vaccine 2021-06-11 00:00:00 Completed [facility] Influenza Virus Vaccine 2021-06-11 00:00:00 Completed [facility] Influenza Virus Vaccine 2021-06-11 00:00:00 Completed [facility] Influenza Virus Vaccine 2021-06-11 00:00:00 Completed [facility] Influenza Virus Vaccine 2021-06-11 00:00:00 Completed [facility] Influenza Virus Vaccine 2021-06-11 00:00:00 Completed [facility] Influenza Virus Vaccine 2021-06-11 00:00:00 Completed [facility] Influenza Virus Vaccine 2021-06-11 00:00:00 Completed [facility] Influenza Virus Vaccine 2021-06-11 00:00:00 Completed [facility] Influenza Virus Vaccine 2021-06-11 00:00:00 Completed [facility] Influenza Virus Vaccine 2021-06-11 00:00:00 Completed [facility] Influenza Virus Vaccine 2021-06-11 00:00:00 Completed [facility] Influenza Virus Vaccine 2021-06-11 00:00:00 Completed [facility] Influenza Virus Vaccine 2021-06-11 00:00:00 Completed [facility] Influenza Virus Vaccine 2021-06-11 00:00:00 Completed [facility] Influenza Virus Vaccine 2021-06-11 00:00:00 Completed [facility] Influenza Virus Vaccine 2021-06-11 00:00:00 Completed [facility] Influenza Virus Vaccine 2021-06-11 00:00:00 Completed [facility] Influenza Virus Vaccine 2021-06-11 00:00:00 Completed [facility] Influenza Virus Vaccine 2021-06-11 00:00:00 Completed [facility] Influenza Virus Vaccine 2021-06-11 00:00:00 Completed [facility] Influenza Virus Vaccine 2021-06-11 00:00:00 Completed [facility] Influenza Virus Vaccine 2021-06-11 00:00:00 Completed [facility] Influenza Virus Vaccine 2021-06-11 00:00:00 Completed [facility] Influenza Virus Vaccine 2021-06-11 00:00:00 Completed [facility] Influenza Virus Vaccine Quad .5 mL IM 6+ MO 2021-06-11 00:00:00 Completed [facility] Influenza Virus Vaccine 2021-06-11 00:00:00 Completed [facility] Influenza Virus Vaccine Quad .5 mL IM 6+ MO 2021-06-11 00:00:00 Completed [facility] Influenza Virus Vaccine 2021-06-11 00:00:00 Completed [facility] Influenza Virus Vaccine Quad .5 mL IM 6+ MO 2021-06-11 00:00:00 Completed [facility] Influenza Virus Vaccine 2021-06-11 00:00:00 Completed [facility] Influenza Virus Vaccine Quad .5 mL IM 6+ MO 2021-06-11 00:00:00 Completed [facility] Influenza Virus Vaccine 2021-06-11 00:00:00 Completed [facility] Influenza Virus Vaccine Quad .5 mL IM 6+ MO 2021-06-11 00:00:00 Completed [facility] Influenza Virus Vaccine 2021-06-11 00:00:00 Completed [facility] Influenza Virus Vaccine Quad .5 mL IM 6+ MO 2021-06-11 00:00:00 Completed [facility] Influenza Virus Vaccine 2021-06-11 00:00:00 Completed [facility] Influenza Virus Vaccine Quad .5 mL IM 6+ MO 2021-06-11 00:00:00 Completed [facility] Influenza Virus Vaccine 2021-06-11 00:00:00 Completed [facility] Influenza Virus Vaccine Quad .5 mL IM 6+ MO 2021-06-11 00:00:00 Completed [facility] Influenza Virus Vaccine 2021-06-11 00:00:00 Completed [facility] Influenza Virus Vaccine Quad .5 mL IM 6+ MO 2021-06-11 00:00:00 Completed [facility] Influenza Virus Vaccine 2021-06-11 00:00:00 Completed [facility] Influenza Virus Vaccine Quad .5 mL IM 6+ MO 2021-06-11 00:00:00 Completed [facility] Influenza Virus Vaccine 2021-06-11 00:00:00 Completed [facility] Influenza Virus Vaccine Quad .5 mL IM 6+ MO 2021-06-11 00:00:00 Completed [facility] Influenza Virus Vaccine 2021-06-11 00:00:00 Completed [facility] Influenza Virus Vaccine Quad .5 mL IM 6+ MO 2021-06-11 00:00:00 Completed [facility] Influenza Virus Vaccine 2021-06-11 00:00:00 Completed [facility] Influenza Virus Vaccine Quad .5 mL IM 6+ MO (FLUZONE/FLULAVAL/F LUARIX) 2021-06-11 00:00:00 Completed [facility] Influenza Virus Vaccine 2021-06-11 00:00:00 Completed [facility] Influenza Virus Vaccine Quad .5 mL IM 6+ MO (FLUZONE/FLULAVAL/F LUARIX) 2021-06-11 00:00:00 Completed [facility] Influenza Virus Vaccine 2021-06-11 00:00:00 Completed [facility] Influenza Virus Vaccine Quad .5 mL IM 6+ MO (FLUZONE/FLULAVAL/F LUARIX) 2021-06-11 00:00:00 Completed [facility] Influenza Virus Vaccine 2020-05-19 00:00:00 Completed [facility] Influenza Virus Vaccine 2020-05-19 00:00:00 Completed [facility] Influenza Virus Vaccine 2020-05-19 00:00:00 Completed [facility] Influenza Virus Vaccine 2020-05-19 00:00:00 Completed [facility] Influenza Virus Vaccine 2020-05-19 00:00:00 Completed [facility] Influenza Virus Vaccine 2020-05-19 00:00:00 Completed [facility] Influenza Virus Vaccine 2020-05-19 00:00:00 Completed [facility] Influenza Virus Vaccine 2020-05-19 00:00:00 Completed [facility] Influenza Virus Vaccine 2020-05-19 00:00:00 Completed [facility] Influenza Virus Vaccine 2020-05-19 00:00:00 Completed [facility] Influenza Virus Vaccine 2020-05-19 00:00:00 Completed [facility] Influenza Virus Vaccine 2020-05-19 00:00:00 Completed [facility] Influenza Virus Vaccine 2020-05-19 00:00:00 Completed [facility] Influenza Virus Vaccine 2020-05-19 00:00:00 Completed [facility] Influenza Virus Vaccine 2020-05-19 00:00:00 Completed [facility] Influenza Virus Vaccine 2020-05-19 00:00:00 Completed [facility] Influenza Virus Vaccine 2020-05-19 00:00:00 Completed [facility] Influenza Virus Vaccine 2020-05-19 00:00:00 Completed [facility] Influenza Virus Vaccine 2020-05-19 00:00:00 Completed [facility] Influenza Virus Vaccine 2020-05-19 00:00:00 Completed [facility] Influenza Virus Vaccine 2020-05-19 00:00:00 Completed [facility] Influenza Virus Vaccine 2020-05-19 00:00:00 Completed [facility] Influenza Virus Vaccine 2020-05-19 00:00:00 Completed [facility] Influenza Virus Vaccine 2020-05-19 00:00:00 Completed [facility] Influenza Virus Vaccine 2020-05-19 00:00:00 Completed [facility] Influenza Virus Vaccine 2020-05-19 00:00:00 Completed [facility] Influenza Virus Vaccine 2020-05-19 00:00:00 Completed [facility] Influenza Virus Vaccine 2020-05-19 00:00:00 Completed [facility] Influenza Virus Vaccine 2020-05-19 00:00:00 Completed [facility] Influenza Virus Vaccine 2020-05-19 00:00:00 Completed [facility] Influenza Virus Vaccine 2020-05-19 00:00:00 Completed [facility] Influenza Virus Vaccine 2020-05-19 00:00:00 Completed [facility] Influenza Virus Vaccine 2020-05-19 00:00:00 Completed [facility] Influenza Virus Vaccine 2020-05-19 00:00:00 Completed [facility] Influenza Virus Vaccine 2020-05-19 00:00:00 Completed [facility] Influenza Virus Vaccine 2020-05-19 00:00:00 Completed [facility] Influenza Virus Vaccine 2020-05-19 00:00:00 Completed [facility] Influenza Virus Vaccine 2020-05-19 00:00:00 Completed [facility] Influenza Virus Vaccine 2020-05-19 00:00:00 Completed [facility] Influenza Virus Vaccine 2020-05-19 00:00:00 Completed [facility] Influenza Virus Vaccine 2020-05-19 00:00:00 Completed [facility] Influenza Virus Vaccine 2020-05-19 00:00:00 Completed [facility] Influenza Virus Vaccine 2020-05-19 00:00:00 Completed [facility] Influenza Virus Vaccine 2020-05-19 00:00:00 Completed [facility] Influenza Virus Vaccine 2020-05-19 00:00:00 Completed [facility] Influenza Virus Vaccine 2020-05-19 00:00:00 Completed [facility] Influenza Virus Vaccine 2020-05-19 00:00:00 Completed [facility] Influenza Virus Vaccine 2020-05-19 00:00:00 Completed [facility] Influenza Virus Vaccine 2020-05-19 00:00:00 Completed [facility] Influenza Virus Vaccine 2020-05-19 00:00:00 Completed [facility] Influenza Virus Vaccine 2020-05-19 00:00:00 Completed [facility] Influenza Virus Vaccine 2020-05-19 00:00:00 Completed [facility] Influenza Virus Vaccine 2020-05-19 00:00:00 Completed [facility] Influenza Virus Vaccine 2020-05-19 00:00:00 Completed [facility] Influenza Virus Vaccine 2020-05-19 00:00:00 Completed [facility] Influenza Virus Vaccine Recomb Quad IM, Preserv and ABX Free 18-64 YRS 2020-05-16 00:00:00 Completed [facility] Influenza Virus Vaccine Recomb Quad IM, Preserv and ABX Free 18-64 YRS 2020-05-16 00:00:00 Completed [facility] Influenza Virus Vaccine Recomb Quad IM, Preserv and ABX Free 18-64 YRS 2020-05-16 00:00:00 Completed [facility] Influenza Virus Vaccine Recomb Quad IM, Preserv and ABX Free 18-64 YRS 2020-05-16 00:00:00 Completed [facility] Influenza Virus Vaccine Recomb Quad IM, Preserv and ABX Free 18-64 YRS 2020-05-16 00:00:00 Completed [facility] Influenza Virus Vaccine Recomb Quad IM, Preserv and ABX Free 18-64 YRS 2020-05-16 00:00:00 Completed [facility] Influenza Virus Vaccine Recomb Quad IM, Preserv and ABX Free 18-64 YRS 2020-05-16 00:00:00 Completed [facility] Influenza Virus Vaccine Recomb Quad IM, Preserv and ABX Free 18-64 YRS 2020-05-16 00:00:00 Completed [facility] Influenza Virus Vaccine Recomb Quad IM, Preserv and ABX Free 18-64 YRS 2020-05-16 00:00:00 Completed [facility] Influenza Virus Vaccine Recomb Quad IM, Preserv and ABX Free 18-64 YRS 2020-05-16 00:00:00 Completed [facility] Influenza Virus Vaccine Recomb Quad IM, Preserv and ABX Free 18-64 YRS 2020-05-16 00:00:00 Completed [facility] Influenza Virus Vaccine Recomb Quad IM, Preserv and ABX Free 18-64 YRS 2020-05-16 00:00:00 Completed [facility] Influenza Virus Vaccine Recomb Quad IM, Preserv and ABX Free 18-64 YRS 2020-05-16 00:00:00 Completed [facility] Influenza Virus Vaccine Recomb Quad IM, Preserv and ABX Free 18-64 YRS 2020-05-16 00:00:00 [facility] [facility] Vaccine Recomb Quad IM, Preserv and ABX Free 18-64 YRS 2020-05-16 00:00:00 Completed [facility] Influenza Virus Vaccine Recomb Quad IM, Preserv and ABX Free 18-64 YRS 2020-05-16 00:00:00 Completed [facility] Influenza Virus Vaccine Recomb Quad IM, Preserv and ABX Free 18-64 YRS 2020-05-16 00:00:00 Completed [facility] Influenza Virus Vaccine Recomb Quad IM, Preserv and ABX Free 18-64 YRS 2020-05-16 00:00:00 Completed [facility] Influenza Virus Vaccine Recomb Quad IM, Preserv and ABX Free 18-64 YRS 2020-05-16 00:00:00 Completed [facility] Influenza Virus Vaccine Recomb Quad IM, Preserv and ABX Free 18-64 YRS 2020-05-16 00:00:00 Completed [facility] Influenza Virus Vaccine Recomb Quad IM, Preserv and ABX Free 18-64 YRS 2020-05-16 00:00:00 Completed [facility] Influenza Virus Vaccine Recomb Quad IM, Preserv and ABX Free 18-64 YRS 2020-05-16 00:00:00 Completed [facility] Influenza Virus Vaccine Recomb Quad IM, Preserv and ABX Free 18-64 YRS 2020-05-16 00:00:00 Completed [facility] Influenza Virus Vaccine Recomb Quad IM, Preserv and ABX Free 18-64 YRS 2020-05-16 00:00:00 Completed [facility] Influenza Virus Vaccine Recomb Quad IM, Preserv and ABX Free 18-64 YRS 2020-05-16 00:00:00 Completed [facility] Influenza Virus Vaccine Recomb Quad IM, Preserv and ABX Free 18-64 YRS 2020-05-16 00:00:00 Completed [facility] Influenza Virus Vaccine Recomb Quad IM, Preserv and ABX Free 18-64 YRS 2020-05-16 00:00:00 Completed [facility] Influenza Virus Vaccine Recomb Quad IM, Preserv and ABX Free 18-64 YRS 2020-05-16 00:00:00 Completed [facility] Influenza Virus Vaccine Recomb Quad IM, Preserv and ABX Free 18-64 YRS 2020-05-16 00:00:00 Completed [facility] Influenza Virus Vaccine Recomb Quad IM, Preserv and ABX Free 18-64 YRS 2020-05-16 00:00:00 Completed [facility] Influenza Virus Vaccine Recomb Quad IM, Preserv and ABX Free 18-64 YRS 2020-05-16 00:00:00 Completed [facility] Influenza Virus Vaccine Recomb Quad IM, Preserv and ABX Free 18-64 YRS 2020-05-16 00:00:00 Completed [facility] Influenza Virus Vaccine Recomb Quad IM, Preserv and ABX Free 18-64 YRS 2020-05-16 00:00:00 Completed [facility] Influenza Virus Vaccine Recomb Quad IM, Preserv and ABX Free 18-64 YRS 2020-05-16 00:00:00 Completed [facility] Influenza Virus Vaccine Recomb Quad IM, Preserv and ABX Free 18-64 YRS 2020-05-16 00:00:00 Completed [facility] Influenza Virus Vaccine Recomb Quad IM, Preserv and ABX Free 18-64 YRS 2020-05-16 00:00:00 Completed [facility] Influenza Virus Vaccine Recomb Quad IM, Preserv and ABX Free 18-64 YRS 2020-05-16 00:00:00 Completed [facility] Influenza Virus Vaccine Recomb Quad IM, Preserv and ABX Free 18-64 YRS 2020-05-16 00:00:00 Completed [facility] Influenza Virus Vaccine Recomb Quad IM, Preserv and ABX Free 18-64 YRS 2020-05-16 00:00:00 Completed [facility] Influenza Virus Vaccine Recomb Quad IM, Preserv and ABX Free 18-64 YRS 2020-05-16 00:00:00 Completed [facility] Influenza Virus Vaccine Recomb Quad IM, Preserv and ABX Free 18-64 YRS 2020-05-16 00:00:00 Completed [facility] Influenza Virus Vaccine Recomb Quad IM, Preserv and ABX Free 18-64 YRS 2020-05-16 00:00:00 Completed [facility] Influenza Virus Vaccine Recomb Quad IM, Preserv and ABX Free 18-64 YRS 2020-05-16 00:00:00 Completed [facility] Influenza Virus Vaccine Recomb Quad IM, Preserv and ABX Free 18-64 YRS 2020-05-16 00:00:00 Completed [facility] Influenza Virus Vaccine Recomb Quad IM, Preserv and ABX Free 18-64 YRS 2020-05-16 00:00:00 Completed [facility] Influenza Virus Vaccine Recomb Quad IM, Preserv and ABX Free 18-64 YRS 2020-05-16 00:00:00 Completed [facility] Influenza Virus Vaccine Recomb Quad IM, Preserv and ABX Free 18-64 YRS 2020-05-16 00:00:00 Completed [facility] Influenza Virus Vaccine Recomb Quad IM, Preserv and ABX Free 18-64 YRS 2020-05-16 00:00:00 Completed [facility] Influenza Virus Vaccine Recomb Quad IM, Preserv and ABX Free 18-64 YRS 2020-05-16 00:00:00 Completed [facility] Influenza Virus Vaccine Recomb Quad IM, Preserv and ABX Free 18-64 YRS 2020-05-16 00:00:00 Completed [facility] Influenza Virus Vaccine Recomb Quad IM, Preserv and ABX Free 18-64 YRS 2020-05-16 00:00:00 Completed [facility] Influenza Virus Vaccine Recomb Quad IM, Preserv and ABX Free 18-64 YRS 2020-05-16 00:00:00 Completed [facility] Influenza Virus Vaccine Recomb Quad IM, Preserv and ABX Free 18-64 YRS 2020-05-16 00:00:00 Completed [facility] Influenza Virus Vaccine Recomb Quad IM, Preserv and ABX Free 18-64 YRS 2020-05-16 00:00:00 Completed [facility] Influenza Virus Vaccine Recomb Quad IM, Preserv and ABX Free 18-64 YRS 2020-05-16 00:00:00 Completed [facility] TDAP (ADACEL) VACCINE 2019-05-21 00:00:00 Completed [facility] TDAP (ADACEL) VACCINE 2019-05-21 00:00:00 Completed [facility] TDAP (ADACEL) VACCINE 2019-05-21 00:00:00 Completed [facility] TDAP (ADACEL) VACCINE 2019-05-21 00:00:00 Completed [facility] TDAP (ADACEL) VACCINE 2019-05-21 00:00:00 Completed [facility] TDAP (ADACEL) VACCINE 2019-05-21 00:00:00 Completed [facility] TDAP (ADACEL) VACCINE 2019-05-21 00:00:00 Completed [facility] TDAP (ADACEL) VACCINE 2019-05-21 00:00:00 Completed [facility] TDAP (ADACEL) VACCINE 2019-05-21 00:00:00 Completed [facility] TDAP (ADACEL) VACCINE 2019-05-21 00:00:00 Completed [facility] TDAP (ADACEL) VACCINE 2019-05-21 00:00:00 Completed [facility] TDAP (ADACEL) VACCINE 2019-05-21 00:00:00 Completed [facility] TDAP (ADACEL) VACCINE 2019-05-21 00:00:00 Completed [facility] TDAP (ADACEL) VACCINE 2019-05-21 00:00:00 Completed [facility] TDAP (ADACEL) VACCINE 2019-05-21 00:00:00 Completed [facility] TDAP (ADACEL) VACCINE 2019-05-21 00:00:00 Completed [facility] TDAP (ADACEL) VACCINE 2019-05-21 00:00:00 Completed [facility] TDAP (ADACEL) VACCINE 2019-05-21 00:00:00 Completed [facility] TDAP (ADACEL) VACCINE 2019-05-21 00:00:00 Completed [facility] TDAP (ADACEL) VACCINE 2019-05-21 00:00:00 Completed [facility] TDAP (ADACEL) VACCINE 2019-05-21 00:00:00 Completed [facility] TDAP (ADACEL) VACCINE 2019-05-21 00:00:00 Completed [facility] TDAP (ADACEL) VACCINE 2019-05-21 00:00:00 Completed [facility] TDAP (ADACEL) VACCINE 2019-05-21 00:00:00 Completed [facility] TDAP (ADACEL) VACCINE 2019-05-21 00:00:00 Completed [facility] TDAP (ADACEL) VACCINE 2019-05-21 00:00:00 Completed [facility] TDAP (ADACEL) VACCINE 2019-05-21 00:00:00 Completed [facility] TDAP (ADACEL) VACCINE 2019-05-21 00:00:00 Completed [facility] TDAP (ADACEL) VACCINE 2019-05-21 00:00:00 Completed [facility] TDAP (ADACEL) VACCINE 2019-05-21 00:00:00 Completed [facility] TDAP (ADACEL) VACCINE 2019-05-21 00:00:00 Completed [facility] TDAP (ADACEL) VACCINE 2019-05-21 00:00:00 Completed [facility] TDAP (ADACEL) VACCINE 2019-05-21 00:00:00 Completed [facility] TDAP (ADACEL) VACCINE 2019-05-21 00:00:00 Completed [facility] TDAP (ADACEL) VACCINE 2019-05-21 00:00:00 Completed [facility] TDAP (ADACEL) VACCINE 2019-05-21 00:00:00 Completed [facility] TDAP (ADACEL) VACCINE 2019-05-21 00:00:00 Completed [facility] TDAP (ADACEL) VACCINE 2019-05-21 00:00:00 Completed [facility] TDAP (ADACEL) VACCINE 2019-05-21 00:00:00 Completed [facility] TDAP (ADACEL) VACCINE 2019-05-21 00:00:00 Completed [facility] TDAP (ADACEL) VACCINE 2019-05-21 00:00:00 Completed [facility] TDAP (ADACEL) VACCINE 2019-05-21 00:00:00 Completed [facility] TDAP (ADACEL) VACCINE 2019-05-21 00:00:00 Completed [facility] TDAP (ADACEL) VACCINE 2019-05-21 00:00:00 Completed [facility] TDAP (ADACEL) VACCINE 2019-05-21 00:00:00 Completed [facility] TDAP (ADACEL) VACCINE 2019-05-21 00:00:00 Completed [facility] TDAP (ADACEL) VACCINE 2019-05-21 00:00:00 Completed [facility] TDAP (ADACEL) VACCINE 2019-05-21 00:00:00 Completed [facility] TDAP (ADACEL) VACCINE 2019-05-21 00:00:00 Completed [facility] TDAP (ADACEL) VACCINE 2019-05-21 00:00:00 Completed [facility] TDAP (ADACEL) VACCINE 2019-05-21 00:00:00 Completed [facility] TDAP (ADACEL) VACCINE 2019-05-21 00:00:00 Completed [facility] TDAP (ADACEL) VACCINE 2019-05-21 00:00:00 Completed [facility] TDAP (ADACEL) VACCINE 2019-05-21 00:00:00 Completed [facility] TDAP (ADACEL) VACCINE 2019-05-21 00:00:00 Completed [facility] Influenza Virus Vaccine Quad .5 mL IM 6+ MO 2019-02-06 00:00:00 Completed [facility] Influenza Virus Vaccine Quad .5 mL IM 6+ MO 2019-02-06 00:00:00 Completed [facility] Influenza Virus Vaccine Quad .5 mL IM 6+ MO 2019-02-06 00:00:00 Completed [facility] Influenza Virus Vaccine Quad .5 mL IM 6+ MO 2019-02-06 00:00:00 Completed [facility] Influenza Virus Vaccine Quad .5 mL IM 6+ MO 2019-02-06 00:00:00 Completed [facility] Influenza Virus Vaccine Quad .5 mL IM 6+ MO 2019-02-06 00:00:00 Completed [facility] Influenza Virus Vaccine Quad .5 mL IM 6+ MO 2019-02-06 00:00:00 Completed [facility] Influenza Virus Vaccine Quad .5 mL IM 6+ MO 2019-02-06 00:00:00 Completed [facility] Influenza Virus Vaccine Quad .5 mL IM 6+ MO 2019-02-06 00:00:00 Completed [facility] Influenza Virus Vaccine Quad .5 mL IM 6+ MO 2019-02-06 00:00:00 Completed [facility] Influenza Virus Vaccine Quad .5 mL IM 6+ MO 2019-02-06 00:00:00 Completed [facility] Influenza Virus Vaccine Quad .5 mL IM 6+ MO 2019-02-06 00:00:00 Completed [facility] Influenza Virus Vaccine Quad .5 mL IM 6+ MO 2019-02-06 00:00:00 Completed [facility] Influenza Virus Vaccine Quad .5 mL IM 6+ MO 2019-02-06 00:00:00 Completed [facility] Influenza Virus Vaccine Quad .5 mL IM 6+ MO 2019-02-06 00:00:00 Completed [facility] Influenza Virus Vaccine Quad .5 mL IM 6+ MO 2019-02-06 00:00:00 Completed [facility] Influenza Virus Vaccine Quad .5 mL IM 6+ MO 2019-02-06 00:00:00 Completed [facility] Influenza Virus Vaccine Quad .5 mL IM 6+ MO 2019-02-06 00:00:00 Completed [facility] Influenza Virus Vaccine Quad .5 mL IM 6+ MO 2019-02-06 00:00:00 Completed [facility] Influenza Virus Vaccine Quad .5 mL IM 6+ MO 2019-02-06 00:00:00 Completed [facility] Influenza Virus Vaccine Quad .5 mL IM 6+ MO 2019-02-06 00:00:00 Completed [facility] Influenza Virus Vaccine Quad .5 mL IM 6+ MO 2019-02-06 00:00:00 Completed [facility] Influenza Virus Vaccine Quad .5 mL IM 6+ MO 2019-02-06 00:00:00 Completed [facility] Influenza Virus Vaccine Quad .5 mL IM 6+ MO 2019-02-06 00:00:00 Completed [facility] Influenza Virus Vaccine Quad .5 mL IM 6+ MO 2019-02-06 00:00:00 Completed [facility] Influenza Virus Vaccine Quad .5 mL IM 6+ MO 2019-02-06 00:00:00 Completed [facility] Influenza Virus Vaccine Quad .5 mL IM 6+ MO 2019-02-06 00:00:00 Completed [facility] Influenza Virus Vaccine Quad .5 mL IM 6+ MO 2019-02-06 00:00:00 Completed [facility] Influenza Virus Vaccine Quad .5 mL IM 6+ MO 2019-02-06 00:00:00 Completed [facility] Influenza Virus Vaccine Quad .5 mL IM 6+ MO 2019-02-06 00:00:00 Completed [facility] Influenza Virus Vaccine Quad .5 mL IM 6+ MO 2019-02-06 00:00:00 Completed [facility] Influenza Virus Vaccine Quad .5 mL IM 6+ MO 2019-02-06 00:00:00 Completed [facility] Influenza Virus Vaccine Quad .5 mL IM 6+ MO 2019-02-06 00:00:00 Completed [facility] Influenza Virus Vaccine Quad .5 mL IM 6+ MO 2019-02-06 00:00:00 Completed [facility] Influenza Virus Vaccine Quad .5 mL IM 6+ MO 2019-02-06 00:00:00 Completed [facility] Influenza Virus Vaccine Quad .5 mL IM 6+ MO 2019-02-06 00:00:00 Completed [facility] Influenza Virus Vaccine Quad .5 mL IM 6+ MO 2019-02-06 00:00:00 Completed [facility] Influenza Virus Vaccine Quad .5 mL IM 6+ MO 2019-02-06 00:00:00 Completed [facility] Influenza Virus Vaccine Quad .5 mL IM 6+ MO 2019-02-06 00:00:00 Completed [facility] Influenza Virus Vaccine Quad .5 mL IM 6+ MO 2019-02-06 00:00:00 Completed [facility] Influenza Virus Vaccine Quad .5 mL IM 6+ MO 2019-02-06 00:00:00 Completed [facility] Influenza Virus Vaccine Quad .5 mL IM 6+ MO 2019-02-06 00:00:00 Completed [facility] Influenza Virus Vaccine Quad .5 mL IM 6+ MO 2019-02-06 00:00:00 Completed [facility] Influenza Virus Vaccine Quad .5 mL IM 6+ MO 2019-02-06 00:00:00 Completed [facility] Influenza Virus Vaccine Quad .5 mL IM 6+ MO 2019-02-06 00:00:00 Completed [facility] Influenza Virus Vaccine Quad .5 mL IM 6+ MO 2019-02-06 00:00:00 Completed [facility] Influenza Virus Vaccine Quad .5 mL IM 6+ MO 2019-02-06 00:00:00 Completed [facility] Influenza Virus Vaccine Quad .5 mL IM 6+ MO 2019-02-06 00:00:00 Completed [facility] Influenza Virus Vaccine Quad .5 mL IM 6+ MO 2019-02-06 00:00:00 Completed [facility] Influenza Virus Vaccine Quad .5 mL IM 6+ MO 2019-02-06 00:00:00 Completed [facility] Influenza Virus Vaccine Quad .5 mL IM 6+ MO 2019-02-06 00:00:00 Completed [facility] Influenza Virus Vaccine Quad .5 mL IM 6+ MO 2019-02-06 00:00:00 Completed [facility] Influenza Virus Vaccine Quad .5 mL IM 6+ MO (FLUZONE/FLULAVAL/F LUARIX) 2019-02-06 00:00:00 Completed [facility] Influenza Virus Vaccine Quad .5 mL IM 6+ MO (FLUZONE/FLULAVAL/F LUARIX) 2019-02-06 00:00:00 Completed [facility] Influenza Virus Vaccine Quad .5 mL IM 6+ MO (FLUZONE/FLULAVAL/F LUARIX) 2019-02-06 00:00:00 Completed [facility] Influenza Virus Vaccine Quad .5 mL IM 6+ MO (FLUZONE/FLULAVAL/F LUARIX) Unknown Completed [facility] TDAP (ADACEL) VACCINE Unknown Completed [facility] Influenza Virus Vaccine Recomb Quad IM, Preserv and ABX Free 18-64 YRS Unknown Completed [facility] Influenza Virus Vaccine Unknown Completed [facility] Influenza Virus Vaccine Quad IM, Preserv and ABX Free 6 MO-64 YRS (FLUCELVAX) Unknown Completed [facility] Influenza Virus Vaccine Quad .5 mL IM 6+ MO (FLUZONE/FLULAVAL/F LUARIX) Unknown Completed [facility] TDAP (ADACEL) VACCINE Unknown Completed [facility] Influenza Virus Vaccine Recomb Quad IM, Preserv and ABX Free 18-64 YRS Unknown Completed [facility] Influenza Virus Vaccine Unknown Completed [facility] Influenza Virus Vaccine Quad IM, Preserv and ABX Free 6 MO-64 YRS (FLUCELVAX) Unknown Completed [facility] Influenza Virus Vaccine Quad .5 mL IM 6+ MO (FLUZONE/FLULAVAL/F LUARIX) Unknown Completed [facility] TDAP (ADACEL) VACCINE Unknown Completed [facility] Influenza Virus Vaccine Recomb Quad IM, Preserv and ABX Free 18-64 YRS Unknown Completed [facility] Influenza Virus Vaccine Unknown Completed [facility] Influenza Virus Vaccine Quad .5 mL IM 6+ MO (FLUZONE/FLULAVAL/F LUARIX) Unknown Completed [facility] TDAP (ADACEL) VACCINE Unknown Completed [facility] Influenza Virus Vaccine Recomb Quad IM, Preserv and ABX Free 18-64 YRS Unknown Completed [facility] Influenza Virus Vaccine Unknown Completed [facility] Influenza Virus Vaccine Quad .5 mL IM 6+ MO (FLUZONE/FLULAVAL/F LUARIX) Unknown Completed [facility] TDAP (ADACEL) VACCINE Unknown Completed [facility] Influenza Virus Vaccine Recomb Quad IM, Preserv and ABX Free 18-64 YRS Unknown Completed [facility] Influenza Virus Vaccine Unknown Completed [facility] Influenza Virus Vaccine Quad .5 mL IM 6+ MO (FLUZONE/FLULAVAL/F LUARIX) Unknown Completed [facility] TDAP (ADACEL) VACCINE Unknown Completed [facility] Influenza Virus Vaccine Recomb Quad IM, Preserv and ABX Free 18-64 YRS Unknown Completed [facility] Influenza Virus Vaccine Unknown Completed [facility] Influenza Virus Vaccine Quad .5 mL IM 6+ MO (FLUZONE/FLULAVAL/F LUARIX) Unknown Completed [facility] TDAP (ADACEL) VACCINE Unknown Completed [facility] Influenza Virus Vaccine Recomb Quad IM, Preserv and ABX Free 18-64 YRS Unknown Completed [facility] Influenza Virus Vaccine Unknown Completed [facility] Influenza Virus Vaccine Quad .5 mL IM 6+ MO (FLUZONE/FLULAVAL/F LUARIX) Unknown Completed [facility] TDAP (ADACEL) VACCINE Unknown Completed [facility] Influenza Virus Vaccine Recomb Quad IM, Preserv and ABX Free 18-64 YRS Unknown Completed [facility] Influenza Virus Vaccine Unknown Completed [facility] Influenza Virus Vaccine Quad .5 mL IM 6+ MO (FLUZONE/FLULAVAL/F LUARIX) Unknown Completed [facility] TDAP (ADACEL) VACCINE Unknown Completed [facility] Influenza Virus Vaccine Recomb Quad IM, Preserv and ABX Free 18-64 YRS Unknown Completed [facility] Influenza Virus Vaccine Unknown Completed [facility] Influenza Virus Vaccine Quad .5 mL IM 6+ MO (FLUZONE/FLULAVAL/F LUARIX) Unknown Completed [facility] TDAP (ADACEL) VACCINE Unknown Completed [facility] Influenza Virus Vaccine Recomb Quad IM, Preserv and ABX Free 18-64 YRS Unknown Completed [facility] Influenza Virus Vaccine Unknown Completed [facility] Influenza Virus Vaccine Quad .5 mL IM 6+ MO (FLUZONE/FLULAVAL/F LUARIX) Unknown Completed [facility] TDAP (ADACEL) VACCINE Unknown Completed [facility] Influenza Virus Vaccine Recomb Quad IM, Preserv and ABX Free 18-64 YRS Unknown Completed [facility] Influenza Virus Vaccine Unknown Completed [facility] Influenza Virus Vaccine Quad .5 mL IM 6+ MO (FLUZONE/FLULAVAL/F LUARIX) Unknown Completed [facility] TDAP (ADACEL) VACCINE Unknown Completed [facility] Influenza Virus Vaccine Recomb Quad IM, Preserv and ABX Free 18-64 YRS Unknown Completed [facility] Influenza Virus Vaccine Unknown Completed [facility] Influenza Virus Vaccine Quad .5 mL IM 6+ MO (FLUZONE/FLULAVAL/F LUARIX) Unknown Completed [facility] TDAP (ADACEL) VACCINE Unknown Completed [facility] Influenza Virus Vaccine Recomb Quad IM, Preserv and ABX Free 18-64 YRS Unknown Completed [facility] Influenza Virus Vaccine Unknown Completed [facility] Influenza Virus Vaccine Quad .5 mL IM 6+ MO (FLUZONE/FLULAVAL/F LUARIX) Unknown Completed [facility] TDAP (ADACEL) VACCINE Unknown Completed [facility] Influenza Virus Vaccine Recomb Quad IM, Preserv and ABX Free 18-64 YRS Unknown Completed [facility] Influenza Virus Vaccine Unknown Completed [facility] Influenza Virus Vaccine Quad .5 mL IM 6+ MO (FLUZONE/FLULAVAL/F LUARIX) Unknown Completed [facility] TDAP (ADACEL) VACCINE Unknown Completed [facility] Influenza Virus Vaccine Recomb Quad IM, Preserv and ABX Free 18-64 YRS Unknown Completed [facility] Influenza Virus Vaccine Unknown Completed [facility] Influenza Virus Vaccine Quad .5 mL IM 6+ MO (FLUZONE/FLULAVAL/F LUARIX) Unknown Completed [facility] TDAP (ADACEL) VACCINE Unknown Completed [facility] Influenza Virus Vaccine Recomb Quad IM, Preserv and ABX Free 18-64 YRS Unknown Completed [facility] Influenza Virus Vaccine Unknown Completed [facility] Influenza Virus Vaccine Quad .5 mL IM 6+ MO (FLUZONE/FLULAVAL/F LUARIX) Unknown Completed [facility] TDAP (ADACEL) VACCINE Unknown Completed [facility] Influenza Virus Vaccine Recomb Quad IM, Preserv and ABX Free 18-64 YRS Unknown Completed [facility] Influenza Virus Vaccine Unknown Completed [facility] Influenza Virus Vaccine Quad .5 mL IM 6+ MO (FLUZONE/FLULAVAL/F LUARIX) Unknown Completed [facility] TDAP (ADACEL) VACCINE Unknown Completed [facility] Influenza Virus Vaccine Recomb Quad IM, Preserv and ABX Free 18-64 YRS Unknown Completed [facility] Influenza Virus Vaccine Unknown Completed [facility] Influenza Virus Vaccine Quad .5 mL IM 6+ MO (FLUZONE/FLULAVAL/F LUARIX) Unknown Completed [facility] TDAP (ADACEL) VACCINE Unknown Completed [facility] Influenza Virus Vaccine Recomb Quad IM, Preserv and ABX Free 18-64 YRS Unknown Completed [facility] Influenza Virus Vaccine Unknown Completed [facility] Influenza Virus Vaccine Quad .5 mL IM 6+ MO (FLUZONE/FLULAVAL/F LUARIX) Unknown Completed [facility] TDAP (ADACEL) VACCINE Unknown Completed [facility] Influenza Virus Vaccine Recomb Quad IM, Preserv and ABX Free 18-64 YRS Unknown Completed [facility] Influenza Virus Vaccine Unknown Completed [facility] Influenza Virus Vaccine Quad .5 mL IM 6+ MO (FLUZONE/FLULAVAL/F LUARIX) Unknown Completed [facility] TDAP (ADACEL) VACCINE Unknown Completed [facility] Influenza Virus Vaccine Recomb Quad IM, Preserv and ABX Free 18-64 YRS Unknown Completed [facility] Influenza Virus Vaccine Unknown Completed [facility] Influenza Virus Vaccine Quad .5 mL IM 6+ MO (FLUZONE/FLULAVAL/F LUARIX) Unknown Completed [facility] TDAP (ADACEL) VACCINE Unknown Completed [facility] Influenza Virus Vaccine Recomb Quad IM, Preserv and ABX Free 18-64 YRS Unknown Completed [facility] Influenza Virus Vaccine Unknown Completed [facility] Influenza Virus Vaccine Quad .5 mL IM 6+ MO (FLUZONE/FLULAVAL/F LUARIX) Unknown Completed [facility] TDAP (ADACEL) VACCINE Unknown Completed [facility] Influenza Virus Vaccine Recomb Quad IM, Preserv and ABX Free 18-64 YRS Unknown Completed [facility] Influenza Virus Vaccine Unknown Completed [facility] Influenza Virus Vaccine Quad .5 mL IM 6+ MO (FLUZONE/FLULAVAL/F LUARIX) Unknown Completed [facility] TDAP (ADACEL) VACCINE Unknown Completed [facility] Influenza Virus Vaccine Recomb Quad IM, Preserv and ABX Free 18-64 YRS Unknown Completed [facility] Influenza Virus Vaccine Unknown Completed [facility] Influenza Virus Vaccine Quad .5 mL IM 6+ MO (FLUZONE/FLULAVAL/F LUARIX) Unknown Completed [facility] TDAP (ADACEL) VACCINE Unknown Completed [facility] Influenza Virus Vaccine Recomb Quad IM, Preserv and ABX Free 18-64 YRS Unknown Completed [facility] Influenza Virus Vaccine Unknown Completed [facility] Influenza Virus Vaccine Quad .5 mL IM 6+ MO (FLUZONE/FLULAVAL/F LUARIX) Unknown Completed [facility] TDAP (ADACEL) VACCINE Unknown Completed [facility] Influenza Virus Vaccine Recomb Quad IM, Preserv and ABX Free 18-64 YRS Unknown Completed [facility] Influenza Virus Vaccine Unknown Completed [facility] Influenza Virus Vaccine Quad .5 mL IM 6+ MO (FLUZONE/FLULAVAL/F LUARIX) Unknown Completed [facility] TDAP (ADACEL) VACCINE Unknown Completed [facility] Influenza Virus Vaccine Recomb Quad IM, Preserv and ABX Free 18-64 YRS Unknown Completed [facility] Influenza Virus Vaccine Unknown Completed [facility] Influenza Virus Vaccine Quad .5 mL IM 6+ MO (FLUZONE/FLULAVAL/F LUARIX) Unknown Completed [facility] TDAP (ADACEL) VACCINE Unknown Completed [facility] Influenza Virus Vaccine Recomb Quad IM, Preserv and ABX Free 18-64 YRS Unknown Completed [facility] Influenza Virus Vaccine Unknown Completed [facility] Influenza Virus Vaccine Quad .5 mL IM 6+ MO (FLUZONE/FLULAVAL/F LUARIX) Unknown Completed [facility] TDAP (ADACEL) VACCINE Unknown Completed [facility] Influenza Virus Vaccine Recomb Quad IM, Preserv and ABX Free 18-64 YRS Unknown Completed [facility] Influenza Virus Vaccine Unknown Completed [facility] Influenza Virus Vaccine Quad .5 mL IM 6+ MO (FLUZONE/FLULAVAL/F LUARIX) Unknown Completed [facility] TDAP (ADACEL) VACCINE Unknown Completed [facility] Influenza Virus Vaccine Recomb Quad IM, Preserv and ABX Free 18-64 YRS Unknown Completed [facility] Influenza Virus Vaccine Unknown Completed [facility] Influenza Virus Vaccine Quad .5 mL IM 6+ MO (FLUZONE/FLULAVAL/F LUARIX) Unknown Completed [facility] TDAP (ADACEL) VACCINE Unknown Completed [facility] Influenza Virus Vaccine Recomb Quad IM, Preserv and ABX Free 18-64 YRS Unknown Completed [facility] Influenza Virus Vaccine Unknown Completed [facility] Influenza Virus Vaccine Quad .5 mL IM 6+ MO (FLUZONE/FLULAVAL/F LUARIX) Unknown Completed [facility] TDAP (ADACEL) VACCINE Unknown Completed [facility] Influenza Virus Vaccine Recomb Quad IM, Preserv and ABX Free 18-64 YRS Unknown Completed [facility] Influenza Virus Vaccine Unknown Completed [facility] Influenza Virus Vaccine Quad .5 mL IM 6+ MO (FLUZONE/FLULAVAL/F LUARIX) Unknown Completed [facility] TDAP (ADACEL) VACCINE Unknown Completed [facility] Influenza Virus Vaccine Recomb Quad IM, Preserv and ABX Free 18-64 YRS Unknown Completed [facility] Influenza Virus Vaccine Unknown Completed [facility] Influenza Virus Vaccine Quad .5 mL IM 6+ MO (FLUZONE/FLULAVAL/F LUARIX) Unknown Completed [facility] TDAP (ADACEL) VACCINE Unknown Completed [facility] Influenza Virus Vaccine Recomb Quad IM, Preserv and ABX Free 18-64 YRS Unknown Completed [facility] Influenza Virus Vaccine Unknown Completed [facility] Influenza Virus Vaccine Quad .5 mL IM 6+ MO (FLUZONE/FLULAVAL/F LUARIX) Unknown Completed [facility] TDAP (ADACEL) VACCINE Unknown Completed [facility] Influenza Virus Vaccine Recomb Quad IM, Preserv and ABX Free 18-64 YRS Unknown Completed [facility] Influenza Virus Vaccine Unknown Completed [facility] Influenza Virus Vaccine Quad .5 mL IM 6+ MO (FLUZONE/FLULAVAL/F LUARIX) Unknown Completed [facility] TDAP (ADACEL) VACCINE Unknown Completed [facility] Influenza Virus Vaccine Recomb Quad IM, Preserv and ABX Free 18-64 YRS Unknown Completed [facility] Influenza Virus Vaccine Unknown Completed [facility] Influenza Virus Vaccine Quad .5 mL IM 6+ MO (FLUZONE/FLULAVAL/F LUARIX) Unknown Completed [facility] TDAP (ADACEL) VACCINE Unknown Completed [facility] Influenza Virus Vaccine Recomb Quad IM, Preserv and ABX Free 18-64 YRS Unknown Completed [facility] Influenza Virus Vaccine Unknown Completed [facility] Influenza Virus Vaccine Quad .5 mL IM 6+ MO (FLUZONE/FLULAVAL/F LUARIX) Unknown Completed [facility] TDAP (ADACEL) VACCINE Unknown Completed [facility] Influenza Virus Vaccine Recomb Quad IM, Preserv and ABX Free 18-64 YRS Unknown Completed [facility] Influenza Virus Vaccine Unknown Completed [facility] Influenza Virus Vaccine Quad .5 mL IM 6+ MO (FLUZONE/FLULAVAL/F LUARIX) Unknown Completed [facility] TDAP (ADACEL) VACCINE Unknown Completed [facility] Influenza Virus Vaccine Recomb Quad IM, Preserv and ABX Free 18-64 YRS Unknown Completed [facility] Influenza Virus Vaccine Unknown Completed [facility] Influenza Virus Vaccine Quad .5 mL IM 6+ MO (FLUZONE/FLULAVAL/F LUARIX) Unknown Completed [facility] TDAP (ADACEL) VACCINE Unknown Completed [facility] Influenza Virus Vaccine Recomb Quad IM, Preserv and ABX Free 18-64 YRS Unknown Completed [facility] Influenza Virus Vaccine Unknown Completed [facility] Influenza Virus Vaccine Quad .5 mL IM 6+ MO (FLUZONE/FLULAVAL/F LUARIX) Unknown Completed [facility] TDAP (ADACEL) VACCINE Unknown Completed [facility] Influenza Virus Vaccine Recomb Quad IM, Preserv and ABX Free 18-64 YRS Unknown Completed [facility] Influenza Virus Vaccine Unknown Completed [facility] Influenza Virus Vaccine Quad .5 mL IM 6+ MO (FLUZONE/FLULAVAL/F LUARIX) Unknown Completed [facility] TDAP (ADACEL) VACCINE Unknown Completed [facility] Influenza Virus Vaccine Recomb Quad IM, Preserv and ABX Free 18-64 YRS Unknown Completed [facility] Influenza Virus Vaccine Unknown Completed [facility] Influenza Virus Vaccine Quad .5 mL IM 6+ MO (FLUZONE/FLULAVAL/F LUARIX) Unknown Completed [facility] TDAP (ADACEL) VACCINE Unknown Completed [facility] Influenza Virus Vaccine Recomb Quad IM, Preserv and ABX Free 18-64 YRS Unknown Completed [facility] Influenza Virus Vaccine Unknown Completed [facility] Influenza Virus Vaccine Quad .5 mL IM 6+ MO (FLUZONE/FLULAVAL/F LUARIX) Unknown Completed [facility] TDAP (ADACEL) VACCINE Unknown Completed [facility] Influenza Virus Vaccine Recomb Quad IM, Preserv and ABX Free 18-64 YRS Unknown Completed [facility] Influenza Virus Vaccine Unknown Completed [facility] Influenza Virus Vaccine Quad .5 mL IM 6+ MO (FLUZONE/FLULAVAL/F LUARIX) Unknown Completed [facility] TDAP (ADACEL) VACCINE Unknown Completed [facility] Influenza Virus Vaccine Recomb Quad IM, Preserv and ABX Free 18-64 YRS Unknown Completed [facility] Influenza Virus Vaccine Unknown Completed [facility] Influenza Virus Vaccine Quad .5 mL IM 6+ MO (FLUZONE/FLULAVAL/F LUARIX) Unknown Completed [facility] TDAP (ADACEL) VACCINE Unknown Completed [facility] Influenza Virus Vaccine Recomb Quad IM, Preserv and ABX Free 18-64 YRS Unknown Completed [facility] Influenza Virus Vaccine Unknown Completed [facility] Influenza Virus Vaccine Quad .5 mL IM 6+ MO (FLUZONE/FLULAVAL/F LUARIX) Unknown Completed [facility] TDAP (ADACEL) VACCINE Unknown Completed [facility] Influenza Virus Vaccine Recomb Quad IM, Preserv and ABX Free 18-64 YRS Unknown Completed [facility] Influenza Virus Vaccine Unknown Completed [facility] Influenza Virus Vaccine Quad .5 mL IM 6+ MO (FLUZONE/FLULAVAL/F LUARIX) Unknown Completed [facility] TDAP (ADACEL) VACCINE Unknown Completed [facility] Influenza Virus Vaccine Recomb Quad IM, Preserv and ABX Free 18-64 YRS Unknown Completed [facility] Influenza Virus Vaccine Unknown Completed [facility] Influenza Virus Vaccine Quad .5 mL IM 6+ MO (FLUZONE/FLULAVAL/F LUARIX) Unknown Completed [facility] TDAP (ADACEL) VACCINE Unknown Completed [facility] Influenza Virus Vaccine Recomb Quad IM, Preserv and ABX Free 18-64 YRS Unknown Completed [facility] Influenza Virus Vaccine Unknown Completed [facility] Influenza Virus Vaccine Quad .5 mL IM 6+ MO (FLUZONE/FLULAVAL/F LUARIX) Unknown Completed [facility] TDAP (ADACEL) VACCINE Unknown Completed [facility] Influenza Virus Vaccine Recomb Quad IM, Preserv and ABX Free 18-64 YRS Unknown Completed [facility] Influenza Virus Vaccine Unknown Completed [facility] Influenza Virus Vaccine Quad .5 mL IM 6+ MO (FLUZONE/FLULAVAL/F LUARIX) Unknown Completed [facility] TDAP (ADACEL) VACCINE Unknown Completed [facility] Influenza Virus Vaccine Recomb Quad IM, Preserv and ABX Free 18-64 YRS Unknown Completed [facility] Influenza Virus Vaccine Unknown Completed [facility] Influenza Virus Vaccine Quad .5 mL IM 6+ MO (FLUZONE/FLULAVAL/F LUARIX) Unknown Completed [facility] TDAP (ADACEL) VACCINE Unknown Completed [facility] Influenza Virus Vaccine Recomb Quad IM, Preserv and ABX Free 18-64 YRS Unknown Completed [facility] Influenza Virus Vaccine Unknown Completed [facility] Influenza Virus Vaccine Quad .5 mL IM 6+ MO (FLUZONE/FLULAVAL/F LUARIX) Unknown Completed [facility] TDAP (ADACEL) VACCINE Unknown Completed [facility] Influenza Virus Vaccine Recomb Quad IM, Preserv and ABX Free 18-64 YRS Unknown Completed [facility] Influenza Virus Vaccine Unknown Completed [facility] Influenza Virus Vaccine Quad .5 mL IM 6+ MO (FLUZONE/FLULAVAL/F LUARIX) Unknown Completed [facility] TDAP (ADACEL) VACCINE Unknown Completed [facility] Influenza Virus Vaccine Recomb Quad IM, Preserv and ABX Free 18-64 YRS Unknown Completed [facility] Influenza Virus Vaccine Unknown Completed [facility] Influenza Virus Vaccine Quad .5 mL IM 6+ MO (FLUZONE/FLULAVAL/F LUARIX) Unknown Completed [facility] TDAP (ADACEL) VACCINE Unknown Completed [facility] Influenza Virus Vaccine Quad .5 mL IM 6+ MO (FLUZONE/FLULAVAL/F LUARIX) Unknown Completed [facility] TDAP (ADACEL) VACCINE Unknown Completed [facility] Influenza Virus Vaccine Quad .5 mL IM 6+ MO (FLUZONE/FLULAVAL/F LUARIX) Unknown Completed [facility] TDAP (ADACEL) VACCINE Unknown Completed [facility] Influenza Virus Vaccine Quad .5 mL IM 6+ MO (FLUZONE/FLULAVAL/F LUARIX) Unknown Completed [facility] TDAP (ADACEL) VACCINE Unknown Completed [facility] Influenza Virus Vaccine Quad .5 mL IM 6+ MO (FLUZONE/FLULAVAL/F LUARIX) Unknown Completed [facility] TDAP (ADACEL) VACCINE Unknown Completed [facility] Influenza Virus Vaccine Quad .5 mL IM 6+ MO (FLUZONE/FLULAVAL/F LUARIX) Unknown Completed [facility] TDAP (ADACEL) VACCINE Unknown Completed [facility] Influenza Virus Vaccine Quad .5 mL IM 6+ MO (FLUZONE/FLULAVAL/F LUARIX) Unknown Completed [facility] TDAP (ADACEL) VACCINE Unknown Completed [facility] Influenza Virus Vaccine Quad .5 mL IM 6+ MO (FLUZONE/FLULAVAL/F LUARIX) Unknown Completed [facility] TDAP (ADACEL) VACCINE Unknown Completed [facility] Influenza Virus Vaccine Quad .5 mL IM 6+ MO (FLUZONE/FLULAVAL/F LUARIX) Unknown Completed [facility] TDAP (ADACEL) VACCINE Unknown Completed [facility] Influenza Virus Vaccine Quad .5 mL IM 6+ MO (FLUZONE/FLULAVAL/F LUARIX) Unknown Completed [facility] TDAP (ADACEL) VACCINE Unknown Completed [facility] Influenza Virus Vaccine Recomb Quad IM, Preserv and ABX Free 18-64 YRS Unknown Completed [facility] Influenza Virus Vaccine Unknown Completed [facility] Influenza Virus Vaccine Quad IM, Preserv and ABX Free 6 MO-64 YRS (FLUCELVAX) Unknown Completed [facility] Influenza Virus Vaccine Quad .5 mL IM 6+ MO (FLUZONE/FLULAVAL/F LUARIX) Unknown Completed [facility] TDAP (ADACEL) VACCINE Unknown Completed [facility] Influenza Virus Vaccine Recomb Quad IM, Preserv and ABX Free 18-64 YRS Unknown Completed [facility] Influenza Virus Vaccine Unknown Completed [facility] Influenza Virus Vaccine Quad IM, Preserv and ABX Free 6 MO-64 YRS (FLUCELVAX) Unknown Completed [facility] Influenza Virus Vaccine Quad .5 mL IM 6+ MO (FLUZONE/FLULAVAL/F LUARIX) Unknown Completed [facility] TDAP (ADACEL) VACCINE Unknown Completed [facility] Influenza Virus Vaccine Recomb Quad IM, Preserv and ABX Free 18-64 YRS Unknown Completed [facility] Influenza Virus Vaccine Unknown Completed [facility] Influenza Virus Vaccine Quad IM, Preserv and ABX Free 6 MO-64 YRS (FLUCELVAX) Unknown Completed [facility] Vital Signs Vital Name Observation Time Observation Value Comments S ource Systolic blood pressure 2024-04-19 15:51:38 123 mm[Hg] [facility] Diastolic blood pressure 2024-04-19 15:51:38 90 mm[Hg] [facility] Heart rate 2024-04-19 15:51:38 87 /min [facility] Body temperature 2024-04-19 15:51:38 36.78 Irene [facility] Respiratory rate 2024-04-19 15:51:38 14 /min [facility] Oxygen saturation in Arterial blood by Pulse oximetry 2024-04-19 15:51:38 100 /min [facility] Body height 2024-04-19 13:54:00 154.9 cm [facility] Body weight 2024-04-19 13:54:00 54.432 kg [facility] BMI 2024-04-19 13:54:00 22.67 kg/m2 [facility] Systolic blood pressure 2024-04-12 20:00:00 119 mm[Hg] [facility] Diastolic blood pressure 2024-04-12 20:00:00 80 mm[Hg] [facility] Heart rate 2024-04-12 20:00:00 88 /min [facility] Respiratory rate 2024-04-12 20:00:00 18 /min [facility] Oxygen saturation in Arterial blood by Pulse oximetry 2024-04-12 20:00:00 99 /min [facility] Body temperature 2024-04-12 19:00:00 36.67 Irene [facility] Body height 2024-04-12 17:57:10 154.9 cm [facility] Body weight 2024-04-12 17:57:10 54.432 kg [facility] BMI 2024-04-12 17:57:10 22.67 kg/m2 [facility] Systolic blood pressure 2024-04-12 16:25:00 124 mm[Hg] [facility] Diastolic blood pressure 2024-04-12 16:25:00 95 mm[Hg] [facility] Heart rate 2024-04-12 16:25:00 106 /min [facility] Body temperature 2024-04-12 16:25:00 37.17 Irene [facility] Respiratory rate 2024-04-12 16:25:00 18 /min [facility] Oxygen saturation in Arterial blood by Pulse oximetry 2024-04-12 16:25:00 100 /min [facility] Body height 2024-04-12 15:25:00 154.9 cm [facility] Body weight 2024-04-12 15:25:00 54.432 kg [facility] BMI 2024-04-12 15:25:00 22.67 kg/m2 [facility] Systolic blood pressure 2024-03-13 13:25:00 129 mm[Hg] [facility] Diastolic blood pressure 2024-03-13 13:25:00 87 mm[Hg] [facility] Heart rate 2024-03-13 13:25:00 116 /min [facility] Body temperature 2024-03-13 13:25:00 35.61 Irene [facility] Respiratory rate 2024-03-13 13:25:00 20 /min [facility] Oxygen saturation in Arterial blood by Pulse oximetry 2024-03-13 13:25:00 94 /min [facility] Body height 2024-03-10 14:43:00 154.9 cm [facility] Body weight 2024-03-10 14:43:00 44.453 kg [facility] BMI 2024-03-10 14:43:00 18.52 kg/m2 [facility] Systolic blood pressure 2024-03-05 16:10:00 142 mm[Hg] [facility] Diastolic blood pressure 2024-03-05 16:10:00 87 mm[Hg] [facility] Heart rate 2024-03-05 16:10:00 94 /min [facility] Body temperature 2024-03-05 16:10:00 37 Irene [facility] Respiratory rate 2024-03-05 16:10:00 16 /min [facility] Oxygen saturation in Arterial blood by Pulse oximetry 2024-03-05 16:10:00 100 /min [facility] Body height 2024-03-04 11:42:00 154.9 cm [facility] Body weight 2024-03-04 11:42:00 45.36 kg [facility] BMI 2024-03-04 11:42:00 18.89 kg/m2 [facility] Systolic blood pressure 2024-02-27 17:17:00 138 mm[Hg] [facility] Diastolic blood pressure 2024-02-27 17:17:00 91 mm[Hg] [facility] Heart rate 2024-02-27 17:17:00 97 /min [facility] Body temperature 2024-02-27 17:17:00 36.67 Irene [facility] Respiratory rate 2024-02-27 17:17:00 16 /min [facility] Oxygen saturation in Arterial blood by Pulse oximetry 2024-02-27 17:17:00 99 /min [facility] Body height 2024-02-27 13:16:00 154.9 cm [facility] Body weight 2024-02-27 13:16:00 45.36 kg [facility] BMI 2024-02-27 13:16:00 18.89 kg/m2 [facility] Systolic blood pressure 2024-02-27 15:50:00 122 mm[Hg] [facility] Diastolic blood pressure 2024-02-27 15:50:00 81 mm[Hg] [facility] Heart rate 2024-02-27 15:50:00 102 /min [facility] Respiratory rate 2024-02-27 15:50:00 13 /min [facility] Oxygen saturation in Arterial blood by Pulse oximetry 2024-02-27 15:50:00 98 /min [facility] Body temperature 2024-02-27 15:20:00 36 Irene [facility] Body height 2024-02-27 13:16:00 154.9 cm [facility] Body weight 2024-02-27 13:16:00 45.36 kg [facility] BMI 2024-02-27 13:16:00 18.89 kg/m2 [facility] Systolic blood pressure 2023-05-19 17:24:00 129 mm[Hg] [facility] Diastolic blood pressure 2023-05-19 17:24:00 83 mm[Hg] [facility] Heart rate 2023-05-19 17:24:00 77 /min [facility] Respiratory rate 2023-05-19 17:24:00 15 /min [facility] Oxygen saturation in Arterial blood by Pulse oximetry 2023-05-19 17:24:00 100 /min [facility] Body temperature 2023-05-19 14:50:00 37.28 Irene [facility] Body height 2023-05-19 14:50:00 154.9 cm [facility] Body weight 2023-05-19 14:50:00 58.968 kg [facility] BMI 2023-05-19 14:50:00 24.56 kg/m2 [facility] Systolic blood pressure 2023-01-15 16:56:00 132 mm[Hg] [facility] Diastolic blood pressure 2023-01-15 16:56:00 91 mm[Hg] [facility] Heart rate 2023-01-15 16:56:00 67 /min [facility] Body temperature 2023-01-15 16:56:00 36.78 Irene [facility] Respiratory rate 2023-01-15 16:56:00 20 /min [facility] Oxygen saturation in Arterial blood by Pulse oximetry 2023-01-15 16:56:00 100 /min [facility] Body height 2023-01-12 09:05:00 154.9 cm [facility] Body weight 2023-01-12 09:05:00 58.968 kg [facility] BMI 2023-01-12 09:05:00 24.56 kg/m2 [facility] Systolic blood pressure 2022-11-21 21:40:00 122 mm[Hg] [facility] Diastolic blood pressure 2022-11-21 21:40:00 90 mm[Hg] [facility] Heart rate 2022-11-21 21:40:00 92 /min [facility] Respiratory rate 2022-11-21 21:40:00 16 /min [facility] Oxygen saturation in Arterial blood by Pulse oximetry 2022-11-21 21:40:00 99 /min [facility] Body temperature 2022-11-21 18:07:00 37.28 [facility] Body weight 2022-11-21 18:07:00 68.04 kg [facility] BMI 2022-11-21 18:07:00 28.34 kg/m2 [facility] Systolic blood pressure 2022-09-05 17:22:00 139 mm[Hg] [facility] Diastolic blood pressure 2022-09-05 17:22:00 91 mm[Hg] [facility] Heart rate 2022-09-05 17:22:00 120 /min [facility] Respiratory rate 2022-09-05 17:22:00 18 /min [facility] Oxygen saturation in Arterial blood by Pulse oximetry 2022-09-05 17:22:00 99 /min [facility] Body temperature 2022-09-05 13:43:00 37.11 [facility] Body weight 2022-09-05 13:43:00 68.04 kg [facility] BMI 2022-09-05 13:43:00 28.34 kg/m2 [facility] Systolic blood pressure 2022-08-01 00:49:00 138 mm[Hg] [facility] Diastolic blood pressure 2022-08-01 00:49:00 104 mm[Hg] [facility] Heart rate 2022-08-01 00:49:00 108 /min [facility] Respiratory rate 2022-08-01 00:49:00 18 /min [facility] Oxygen saturation in Arterial blood by Pulse oximetry 2022-08-01 00:49:00 99 /min [facility] Body temperature 2022-07-31 22:52:00 37.11 [facility] Body height 2022-07-31 22:52:00 154.9 cm [facility] Body weight 2022-07-31 22:52:00 68.04 kg [facility] BMI 2022-07-31 22:52:00 28.34 kg/m2 [facility] Systolic blood pressure 2022-07-15 15:32:00 130 mm[Hg] [facility] Diastolic blood pressure 2022-07-15 15:32:00 90 mm[Hg] [facility] Heart rate 2022-07-15 15:31:00 81 /min [facility] Body temperature 2022-07-15 15:31:00 36.94 Irene [facility] Respiratory rate 2022-07-15 15:31:00 16 /min [facility] Body weight 2022-07-15 15:31:00 68.493 kg [facility] BMI 2022-07-15 15:31:00 28.53 kg/m2 [facility] Oxygen saturation in Arterial blood by Pulse oximetry 2022-07-15 15:31:00 99 /min [facility] Systolic blood pressure 2022-06-23 15:26:00 111 mm[Hg] [facility] Diastolic blood pressure 2022-06-23 15:26:00 75 mm[Hg] [facility] Heart rate 2022-06-23 15:26:00 108 /min [facility] Body temperature 2022-06-23 15:26:00 36.83 Irene [facility] Respiratory rate 2022-06-23 15:26:00 18 /min [facility] Body height 2022-06-23 15:26:00 154.9 cm [facility] Body weight 2022-06-23 15:26:00 71.385 kg [facility] BMI 2022-06-23 15:26:00 29.74 kg/m2 [facility] Oxygen saturation in Arterial blood by Pulse oximetry 2022-06-23 15:26:00 99 /min [facility] [facility] 2022-05-05 22:05:00 126 mm[Hg] [facility] Diastolic blood pressure 2022-05-05 22:05:00 75 mm[Hg] [facility] Heart rate 2022-05-05 22:05:00 99 /min [facility] Respiratory rate 2022-05-05 22:05:00 16 /min [facility] Oxygen saturation in Arterial blood by Pulse oximetry 2022-05-05 22:05:00 99 /min [facility] Body temperature 2022-05-05 18:24:00 37.11 Irene [facility] Body height 2022-05-05 18:24:00 154.9 cm [facility] Body weight 2022-05-05 18:24:00 54.432 kg [facility] BMI 2022-05-05 18:24:00 22.67 kg/m2 [facility] Systolic blood pressure 2022-04-26 14:28:00 135 mm[Hg] [facility] Diastolic blood pressure 2022-04-26 14:28:00 95 mm[Hg] [facility] Heart rate 2022-04-26 14:28:00 93 /min [facility] Body temperature 2022-04-26 14:28:00 36.89 Irene [facility] Respiratory rate 2022-04-26 14:28:00 18 /min [facility] Body height 2022-04-26 14:28:00 154.9 cm [facility] Body weight 2022-04-26 14:28:00 54.432 kg [facility] BMI 2022-04-26 14:28:00 22.67 kg/m2 [facility] Oxygen saturation in Arterial blood by Pulse oximetry 2022-04-26 14:28:00 100 /min [facility] Systolic blood pressure 2022-04-26 00:21:00 151 mm[Hg] [facility] Diastolic blood pressure 2022-04-26 00:21:00 98 mm[Hg] [facility] Heart rate 2022-04-26 00:21:00 98 /min [facility] Body temperature 2022-04-26 00:21:00 36.72 Irene [facility] Respiratory rate 2022-04-26 00:21:00 18 /min [facility] Body height 2022-04-26 00:21:00 154.9 cm [facility] Body weight 2022-04-26 00:21:00 54.432 kg [facility] BMI 2022-04-26 00:21:00 22.67 kg/m2 [facility] Oxygen saturation in Arterial blood by Pulse oximetry 2022-04-26 00:21:00 100 /min [facility] Systolic blood pressure 2022-04-09 14:39:00 122 mm[Hg] [facility] Diastolic blood pressure 2022-04-09 14:39:00 84 mm[Hg] [facility] Heart rate 2022-04-09 14:39:00 96 /min [facility] Body height 2022-04-09 14:39:00 154.9 cm [facility] Body weight 2022-04-09 14:39:00 60.328 kg [facility] BMI 2022-04-09 14:39:00 25.13 kg/m2 [facility] Oxygen saturation in Arterial blood by Pulse oximetry 2022-04-09 14:39:00 98 /min [facility] Systolic blood pressure 2022-04-07 22:43:36 131 mm[Hg] [facility] Diastolic blood pressure 2022-04-07 22:43:36 83 mm[Hg] [facility] Heart rate 2022-04-07 22:43:36 113 /min [facility] Respiratory rate 2022-04-07 22:43:36 18 /min [facility] Oxygen saturation in Arterial blood by Pulse oximetry 2022-04-07 22:43:36 97 /min [facility] Body temperature 2022-04-07 19:41:00 37.17 Irene [facility] Body height 2022-04-07 19:41:00 154.9 cm [facility] Body weight 2022-04-07 19:41:00 60.328 kg [facility] BMI 2022-04-07 19:41:00 25.13 kg/m2 [facility] Systolic blood pressure 2022-03-24 19:00:00 125 mm[Hg] [facility] Diastolic blood pressure 2022-03-24 19:00:00 86 mm[Hg] [facility] Heart rate 2022-03-24 19:00:00 93 /min [facility] Respiratory rate 2022-03-24 19:00:00 17 /min [facility] Oxygen saturation in Arterial blood by Pulse oximetry 2022-03-24 19:00:00 97 /min [facility] Body temperature 2022-03-24 13:33:00 36.78 Irene [facility] Systolic blood pressure 2022-03-15 19:23:00 128 mm[Hg] [facility] Diastolic blood pressure 2022-03-15 19:23:00 89 mm[Hg] [facility] Heart rate 2022-03-15 19:23:00 104 /min [facility] Body weight 2022-03-15 19:23:00 60.328 kg [facility] BMI 2022-03-15 19:23:00 25.13 kg/m2 [facility] Oxygen saturation in Arterial blood by Pulse oximetry 2022-03-15 19:23:00 98 /min [facility] Systolic blood pressure 2022-03-15 15:02:00 115 mm[Hg] [facility] Diastolic blood pressure 2022-03-15 15:02:00 70 mm[Hg] [facility] Heart rate 2022-03-15 15:02:00 85 /min [facility] Respiratory rate 2022-03-15 15:02:00 20 /min [facility] Oxygen saturation in Arterial blood by Pulse oximetry 2022-03-15 15:02:00 99 /min [facility] Body temperature 2022-03-15 13:38:00 36.94 Irene [facility] Body height 2022-03-15 13:38:00 154.9 cm [facility] Body weight 2022-03-15 13:38:00 54.432 kg [facility] BMI 2022-03-15 13:38:00 22.67 kg/m2 [facility] Systolic blood pressure 2022-03-11 16:30:00 124 mm[Hg] [facility] Diastolic blood pressure 2022-03-11 16:30:00 88 mm[Hg] [facility] Heart rate 2022-03-11 16:30:00 93 /min [facility] Body temperature 2022-03-11 16:30:00 36.67 Irene [facility] Respiratory rate 2022-03-11 16:30:00 14 /min [facility] Oxygen saturation in Arterial blood by Pulse oximetry 2022-03-11 16:30:00 100 /min [facility] Body height 2022-03-11 14:19:00 154.9 cm [facility] Body weight 2022-03-11 14:19:00 58.968 kg [facility] BMI 2022-03-11 14:19:00 24.56 kg/m2 [facility] Systolic blood pressure 2022-02-27 14:14:00 140 mm[Hg] [facility] Diastolic blood pressure 2022-02-27 14:14:00 90 mm[Hg] [facility] Heart rate 2022-02-27 14:14:00 103 /min [facility] Body height 2022-02-27 14:14:00 154.9 cm [facility] Body weight 2022-02-27 14:14:00 59.194 kg [facility] BMI 2022-02-27 14:14:00 24.66 kg/m2 [facility] Oxygen saturation in Arterial blood by Pulse oximetry 2022-02-27 14:14:00 100 /min [facility] Systolic blood pressure 2022-02-27 13:19:00 131 mm[Hg] [facility] Diastolic blood pressure 2022-02-27 13:19:00 86 mm[Hg] [facility] Heart rate 2022-02-27 13:19:00 102 /min [facility] Body temperature 2022-02-27 13:19:00 36.33 Irene [facility] Body height 2022-02-27 13:19:00 154.9 cm [facility] Body weight 2022-02-27 13:19:00 58.968 kg [facility] BMI 2022-02-27 13:19:00 24.56 kg/m2 [facility] Oxygen saturation in Arterial blood by Pulse oximetry 2022-02-27 13:19:00 99 /min [facility] Systolic blood pressure 2022-02-21 08:06:00 135 mm[Hg] [facility] Diastolic blood pressure 2022-02-21 08:06:00 97 mm[Hg] [facility] Heart rate 2022-02-21 08:06:00 98 /min [facility] Respiratory rate 2022-02-21 08:06:00 16 /min [facility] Oxygen saturation in Arterial blood by Pulse oximetry 2022-02-21 08:06:00 97 /min [facility] Body temperature 2022-02-21 06:16:00 36.94 Irene [facility] Body height 2022-02-21 06:16:00 154.9 cm [facility] Body weight 2022-02-21 06:16:00 60.963 kg [facility] BMI 2022-02-21 06:16:00 25.39 kg/m2 [facility] Systolic blood pressure 2022 20:08:00 136 mm[Hg] [facility] Diastolic blood pressure 2022 20:08:00 96 mm[Hg] [facility] Heart rate 2022 20:08:00 100 /min [facility] Respiratory rate 2022 20:08:00 20 /min [facility] Oxygen saturation in Arterial blood by Pulse oximetry 2022 20:08:00 98 /min [facility] Body temperature 2022 16:56:00 37.06 Irene [facility] Body weight 2022 16:56:00 54.432 kg [facility] BMI 2022 16:56:00 22.67 kg/m2 [facility] Systolic blood pressure 2022-02-05 14:31:00 128 mm[Hg] [facility] Diastolic blood pressure 2022-02-05 14:31:00 84 mm[Hg] [facility] Heart rate 2022-02-05 14:31:00 86 /min [facility] Body temperature 2022-02-05 14:31:00 37.89 Irene [facility] Respiratory rate 2022-02-05 14:31:00 18 /min [facility] Body height 2022-02-05 14:31:00 154.9 cm [facility] Body weight 2022-02-05 14:31:00 54.432 kg [facility] BMI 2022-02-05 14:31:00 22.67 kg/m2 [facility] Oxygen saturation in Arterial blood by Pulse oximetry 2022-02-05 14:31:00 98 /min [facility] Systolic blood pressure 2022-01-18 14:50:00 144 mm[Hg] [facility] Diastolic blood pressure 2022-01-18 14:50:00 92 mm[Hg] [facility] Heart rate 2022-01-18 14:50:00 94 /min [facility] Respiratory rate 2022-01-18 14:50:00 20 /min [facility] Oxygen saturation in Arterial blood by Pulse oximetry 2022-01-18 14:50:00 99 /min [facility] Body weight 2022-01-18 10:18:00 54.432 kg [facility] BMI 2022-01-18 10:18:00 22.67 kg/m2 [facility] Body temperature 2022-01-18 10:15:00 36.72 Irene [facility] Systolic blood pressure 2022-01-15 15:48:26 125 mm[Hg] [facility] Diastolic blood pressure 2022-01-15 15:48:26 85 mm[Hg] [facility] Heart rate 2022-01-15 15:48:26 95 /min [facility] Respiratory rate 2022-01-15 15:48:26 18 /min [facility] Oxygen saturation in Arterial blood by Pulse oximetry 2022-01-15 15:48:26 98 /min [facility] Body temperature 2022-01-15 13:32:00 37.11 [facility] Body height 2022-01-15 13:32:00 154.9 cm [facility] Body weight 2022-01-15 13:32:00 54.432 kg [facility] BMI 2022-01-15 13:32:00 22.67 kg/m2 [facility] Systolic blood pressure 2022-01-09 00:37:11 127 mm[Hg] [facility] Diastolic blood pressure 2022-01-09 00:37:11 90 mm[Hg] [facility] Heart rate 2022-01-09 00:37:11 94 /min [facility] Body temperature 2022-01-09 00:37:11 37.11 [facility] Respiratory rate 2022-01-09 00:37:11 16 /min [facility] Oxygen saturation in Arterial blood by Pulse oximetry 2022-01-09 00:37:11 97 /min [facility] Body height 2022-01-08 23:03:00 154.9 cm [facility] Body weight 2022-01-08 23:03:00 58.06 kg [facility] BMI 2022-01-08 23:03:00 24.19 kg/m2 [facility] Systolic blood pressure 2021-12-12 18:00:00 126 mm[Hg] [facility] Diastolic blood pressure 2021-12-12 18:00:00 87 mm[Hg] [facility] Heart rate 2021-12-12 18:00:00 86 /min [facility] Body temperature 2021-12-12 18:00:00 36.89 Irene [facility] Respiratory rate 2021-12-12 18:00:00 18 /min [facility] Body height 2021-12-12 18:00:00 154.9 cm [facility] Body weight 2021-12-12 18:00:00 57.153 kg [facility] BMI 2021-12-12 18:00:00 23.81 kg/m2 [facility] Systolic blood pressure 2023-01-14 16:32:00 138 mm[Hg] [facility] Diastolic blood pressure 2023-01-14 16:32:00 84 mm[Hg] [facility] Heart rate 2023-01-14 16:32:00 67 /min [facility] Body temperature 2023-01-14 16:32:00 36.5 Irene [facility] Respiratory rate 2023-01-14 16:32:00 16 /min [facility] Oxygen saturation in Arterial blood by Pulse oximetry 2023-01-14 16:32:00 99 /min [facility] Body height 2023-01-12 09:05:00 154.9 cm [facility] Body weight 2023-01-12 09:05:00 58.968 kg [facility] BMI 2023-01-12 09:05:00 24.56 kg/m2 [facility] Procedures Procedure Date / Time Performed Performing Clinician Source CT ABDOMEN PELVIS WO CONTRAST 2024-04-19 14:51:33 Bernardo Levy [facility] POCT TEST 2024-04-19 14:21:00 Bernardo Levy [facility] LIPASE 2024-04-19 14:18:00 Bernardo Levy [facility] COMP. METABOLIC PANEL ([id number]) 2024-04-19 14:18:00 Bernardo Levy [facility] CBC WITH DIFF 2024-04-19 14:18:00 Bernardo Levy [facility] URINALYSIS 2024-04-19 14:18:00 Bernardo Levy [facility] XR ANKLE <3 VW LEFT 2024-04-12 18:36:00 Neeta Ureña [facility] XR FOOT <3 VW LEFT 2024-04-12 18:36:00 Niranjan Neeta [facility] XR TIBIA FIBULA 2 VW LEFT 2024-04-12 18:36:00 Niranjan Neeta [facility] CT TRAUMA HEAD WO CONTRAST 2024-04-12 18:27:49 [facility] TRAUMA CERVICAL SPINE WO CONTRAST 2024-04-12 18:27:49 [facility] TRAUMA THORACIC SPINE WO CONTRAST 2024-04-12 18:27:49 [facility] TRAUMA LUMBAR SPINE WO CONTRAST 04-12 18:27:49 [facility] XR CHEST 1 VW 2024-04-12 15:50:27 Maggie Hamilton [facility] COMP. METABOLIC PANEL ([id number]) 2024-04-12 15:43:00 Maggie Hamilton [facility] CBC WITH DIFF 2024-04-12 15:43:00 Maggie Hamilton [facility] HB ABO GROUPING 2024-04-12 15:43:00 Maggie Hamilton [facility] ER FAST ULTRASOUND 2024-04-12 15:36:51 Maggie Hamilton [facility] MAGNESIUM 2024-03-13 10:20:00 Ellis Burgess [facility] BASIC METABOLIC PANEL (NA, K , CL, CO2, GLUCOSE, BUN, CREATININE, CA) 2024-03-13 10:20:00 Ellis Burgess [facility] CBC WITH DIFF 2024-03-13 10:20:00 Ellis Burgess [facility] FECAL PATHOGENS BY PCR 2024-03-12 17:51:00 Gisela Crews [facility] CLOSTRIDIUM DIFFICILE TOXIN 2024-03-12 17:50[facility]00 [facility] C. DIFFICILE TOXIN B GENE (TCDB) BY PCR 2024-03-12 17:50:00 Gisela Crews [facility] SUPERIOR MESENTERIC ARTERY D UPLEX - BY VASCULAR LAB 2024-03-12 14:06:02 [facility] 2024-03-12 11:14:00 [facility]OLIC PANEL (NA, K , CL, CO2, GLUCOSE, BUN, CREATININE, CA) 2024-03-12 11:14:00 [facility] WITHOUT DIFF 2024-03-12 11:14:00 [facility] 2024-03-11 10:47:00 Kitty [facility] BASIC METABOLIC PANEL (NA, K , CL, CO2, GLUCOSE, BUN, CREATININE, CA) 2024-03-11 10:47:00 Kitty [facility] CBC WITH DIFF 2024-03-11 10:47:00 [facility] CT ABDOMEN PELVIS WO CONTRAST 2024-03-10 19:46:10 Venkat [facility] LIPASE 2024-03-10 15:42:00 Venkat [facility] TEST, SERUM 2024-03-10 15:42:00 Alfredo Parra [facility] COMP. METABOLIC PANEL ([id number]) 2024-03-10 15:42:00 Embarrass [facility] URINE DRUG (IMMUNOASSAY) - COMPREHENSIVE DRUG SCREEN 2024-03-10 15:42:00 Kitty [facility] CBC WITH DIFF 2024-03-10 [facility]-10 15:42:00 Venkat [facility] EXTRA TUBE DK. GREEN 2024-03-10 15:42:[address] [facility] CT ABDOMEN PELVIS WO CONTRAST 2024-03-04 13:43:16 Fabio Avila [facility] POCT TEST 2024-03-04 13:14:00 Fabio Avila [facility] LIPASE 2024-03-04 13:13:00 Fabio Avila [facility] COMP. METABOLIC PANEL ([id number]) 2024-03-04 13:13:00 Fabio Avila [facility] CBC WITH DIFF 2024-03-04 13:13:00 Fabio Avila [facility] URINALYSIS 2024-03-04 13:13:00 Fabio Avila [facility] FLEXIBLE SIGMOIDOSCOPY (ENDO) 2024-02-27 15:42:37 Hany Bo [facility] FLEXIBLE SIGMOIDOSCOPY (ENDO) 2024-02-27 15:42:37 Hany Bo [facility] EGD (ENDO) 2024-02-27 15:39:44 Hany Bo [facility] EGD (ENDO) 2024-02-27 15:39:44 Hany Bo [facility] ESOPHAGOGASTRODUODENOSCOPY 2024-02-27 14:11:00 Chitra [facility] FLEXIBLE SIGMOIDOSCOPY 2024-02-27 14:11:00 Toi Mensah [facility] MAGNESIUM 2024-02-27 09:37:00 Jose Carlos Urbina [facility] HEPATIC FUNCTION PANEL (8007 [id number]) (ALB,T.PRO,BILI T,BU/BC,ALT,AST,ALK PHOS) 2024-02-27 09:37:00 Jose Carlos Urbina [facility] BASIC METABOLIC PANEL (NA, K , CL, CO2, GLUCOSE, BUN, CREATININE, CA) 2024-02-27 09:37:00 Jose Carlos Urbina [facility] CBC WITH DIFF 2024-02-27 09:37:00 Jose Carlos Urbina [facility] MAGNESIUM 2024-02-27 09:37:00 Jose Carlos Urbina [facility] HEPATIC FUNCTION PANEL (8007 [id number]) (ALB,T.PRO,BILI T,BU/BC,ALT,AST,ALK PHOS) 2024-02-27 09:37:00 Jose Carlos Urbina [facility] BASIC METABOLIC PANEL (NA, K , CL, CO2, GLUCOSE, BUN, CREATININE, CA) 2024-02-27 09:37:00 Jose Carlos Urbina [facility] CBC WITH DIFF 2024-02-27 09:37:00 Jose Carlos Urbina [facility] CALPROTECTIN, FECAL 2024-02-26 22:49:00 Jose Carlos Urbina [facility] CALPROTECTIN, FECAL 2024-02-26 22:49:00 Jose Carlos Urbina [facility] XR KUB 2024-02-26 20:00:00 Jose Carlos Urbina [facility] XR KUB 2024-02-26 20:00:00 Jose Carlos Urbina [facility] MAGNESIUM 2024-02-26 16:17:00 Chitra [facility] HEPATIC FUNCTION PANEL (8007 [id number]) (ALB,T.PRO,BILI T,BU/BC,ALT,AST,ALK PHOS) 2024-02-26 16:17:00 [facility] BASIC METABOLIC PANEL (NA, K , CL, CO2, GLUCOSE, BUN, CREATININE, CA) 2024-02-26 16:17:00 [facility] PROTHROMBIN TIME / INR 2024-02-26 16:17:00 [facility] MAGNESIUM 2024-02-26 16:17:00 [facility] HEPATIC FUNCTION PANEL (8007 [id number]) (ALB,T.PRO,BILI T,BU/BC,ALT,AST,ALK PHOS) 2024-02-26 16:17:00 [facility] BASIC METABOLIC PANEL (NA, K , CL, CO2, GLUCOSE, BUN, CREATININE, CA) 2024-02-26 16:17:00 [facility] PROTHROMBIN TIME / INR 2024-02-26 16:17:00 [facility] MR ABDOMEN W WO CONTRAST MRCP 2024-02-25 17:15:21 [facility] MR ABDOMEN W WO CONTRAST MRCP 2024-02-25 17:15:21 [facility] CREATINE KINASE 2024-02-25 10:52:00 [facility] HEPATIC FUNCTION PANEL (8007 [id number]) (ALB,T.PRO,BILI T,BU/BC,ALT,AST,ALK PHOS) 2024-02-25 10:52:00 Jose Carlos Urbina [facility] BASIC METABOLIC PANEL (NA, K , CL, CO2, GLUCOSE, BUN, CREATININE, CA) 2024-02-25 10:52:00 Jose Carlos Urbina [facility] CREATINE KINASE 2024-02-25 10:52:00 Naty Mensah [facility] HEPATIC FUNCTION PANEL ([phone]) (ALB,T.PRO,BILI T,BU/BC,ALT,AST,ALK PHOS) 2024-02-25 10:52:00 Jose Carlos Urbina [facility] BASIC METABOLIC PANEL (NA, K , CL, CO2, GLUCOSE, BUN, CREATININE, CA) 2024-02-25 10:52:00 Jose Carlos Urbina [facility] MAGNESIUM 2024-02-24 09:54:00 Naty Mensah [facility] HEPATIC FUNCTION PANEL (8007 6) (ALB,T.PRO,BILI T,BU/BC,ALT,AST,ALK PHOS) 2024-02-24 09:54:00 Jose Carlos Urbina [facility] BASIC METABOLIC PANEL (NA, K , CL, CO2, GLUCOSE, BUN, CREATININE, CA) 2024-02-24 09:54:00 Jose Carlos Urbina [facility] CBC WITH DIFF 2024-02-24 09:54:00 Naty Mensah [facility] MAGNESIUM 2024-02-24 09:54:00 Naty Mensah [facility] HEPATIC FUNCTION PANEL (8007 [id number]) (ALB,T.PRO,BILI T,BU/BC,ALT,AST,ALK PHOS) 2024-02-24 09:54:00 Jose Carlos Urbina [facility] BASIC METABOLIC PANEL (NA, K , CL, CO2, GLUCOSE, BUN, CREATININE, CA) 2024-02-24 09:54:00 Jose Carlos Urbina [facility] CBC WITH DIFF 2024-02-24 09:54:00 Naty Mensah [facility] POCT GLUCOSE (AUTOMATED) 2024-02-24 01:34:00 Hany Bo [facility] POCT GLUCOSE (AUTOMATED) 2024-02-24 01:34:00 Hany Bo [facility] HEPATIC FUNCTION PANEL (8007 [id number]) (ALB,T.PRO,BILI T,BU/BC,ALT,AST,ALK PHOS) 2024-02-23 17:51:00 [facility] CBC WITH DIFF 2024-02-23 17:51:00 [facility] HAV ANTIBODY (IGG AND IGM) 2024-02-23 17:51:00 [facility] ENDOMYSIAL AB, IGA BY IFA 2024-02-23 17:51:00 [facility] VITAMIN D, 25-OH 2024-02-23 17:51:00 [facility] HEPATIC FUNCTION PANEL (8007 [id number]) (ALB,T.PRO,BILI T,BU/BC,ALT,AST,ALK PHOS) 2024-02-23 17:51:00 [facility] CBC WITH DIFF 2024-02-23 17:51:00 [facility] HAV ANTIBODY (IGG AND IGM) 2024-02-23 17:51:00 [facility] ENDOMYSIAL AB, IGA BY IFA 2024-02-23 17:51:00 [facility] VITAMIN D, 25-OH 2024-02-23 17:51:00 [facility] INFLUENZA A/B RSV COVID NAAT 2024-02-22 20:12:00 [facility] LAB ONLY COVID INTERPRETATION 2024-02-22 20:12:00 [facility] INFLUENZA A/B RSV COVID NAAT 2024-02-22 20:12:00 [facility] LAB ONLY COVID INTERPRETATION 2024-02-22 20:12:00 [facility] XR CHEST 2 VW 2024-02-22 17:16:00 [place], Adriana [facility] XR CHEST 2 VW 2024-02-22 17:16:00 [place] 2024-02-22 16:59:52 [place], Adriana [facility] US ABDOMEN LIMITED 2024-02-22 16:59:52 [place], Adriana [facility] LIPASE 2024-02-22 15:19:00 Stephanie Lou [facility] TEST, SERUM 2024-02-22 15:19:00 Stephanie Lou [facility] C-REACTIVE PROTEIN 2024-02-22 15:19:00 [facility] TROPONIN I 2024-02-22 15:19:00 Stephanie Lou [facility] HEPATIC FUNCTION PANEL (8007 [id number]) (ALB,T.PRO,BILI T,BU/BC,ALT,AST,ALK PHOS) 2024-02-22 15:19:00 [facility]. METABOLIC PANEL ([id number]) 2024-02-22 15:19:00 Stephanie Lou [facility] URINE DRUG (IMMUNOASSAY) - COMPREHENSIVE DRUG SCREEN 2024-02-22 15:19:00 [facility] SEDIMENTATION RATE 2024-02-22 15:19:00 [facility] WITH DIFF 2024-02-22 15:19:00 Stephanie Lou [facility] URINALYSIS 2024-02-22 15:19:00 Stephanie Lou [facility] HEPATITIS B SURFACE ANTIBODY 2024-02-22 15:19:00 [facility] HEPATITIS B SURFACE ANTIGEN 2024-02-22 15:19:00 [facility] HCV ANTIBODY 2024-02-22 15:19:00 [facility] HBC ANTIBODY (IGM & IGG) 2024-02-22 15:19:00 [facility] HIV 1/2 AG-AB WITH REFLEX 2024-02-22 15:19:00 [facility] DEAMIDATED GLIADIN IGG 2024-02-22 15:19:00 [facility] 2024-02-22 15:19:00 Stephanie Lou [facility] TEST, SERUM 2024-02-22 15:19:00 Stephanie Lou [facility] C-REACTIVE PROTEIN 2024-02-22 15:19:00 [facility] TROPONIN I 2024-02-22 15:19:00 Stephanie Lou [facility] HEPATIC FUNCTION PANEL (8007 6) (ALB,T.PRO,BILI T,BU/BC,ALT,AST,ALK PHOS) 2024-02-22 15:19:00 [facility] COMP. METABOLIC PANEL ([id number]) 2024-02-22 15:19:00 Stephanie Lou [facility] URINE DRUG (IMMUNOASSAY) - COMPREHENSIVE DRUG SCREEN 2024-02-22 15:19:00 [facility] SEDIMENTATION RATE 2024-02-22 15:19:00 [facility] CBC WITH DIFF 2024-02-22 15:19:00 Stephanie Lou [facility] URINALYSIS 2024-02-22 15:19:00 Stephanie Lou [facility] HEPATITIS B SURFACE ANTIBODY 2024-02-22 15:19:00 [facility] B SURFACE ANTIGEN 2024-02-22 15:19:00 [facility] HCV ANTIBODY 2024-02-22 15:19:00 [facility] HBC ANTIBODY (IGM & IGG) 2024-02-22 15:19:00 [facility] HIV 1/2 AG-AB WITH REFLEX 2024-02-22 15:19:00 [facility] DEAMIDATED GLIADIN IGG 2024-02-22 15:19:00 Naty Mensah [facility] COMP. METABOLIC PANEL (69539) 2023-05-19 17:22:00 Anna Marie Sellerszohra [facility] CT ABDOMEN PELVIS W CONTRAST 2023-05-19 15:59:54 Tod Sellers [facility] LIPASE 2023-05-19 15:43:00 Verito [place] [facility] CBC WITH DIFF 2023-05-19 15:43:00 Verito [facility] URINALYSIS 2023-05-19 15:32:00 Verito [facility] POCT TEST 2023-05-19 15:31:00 Verito [facility] CONSENT/REFUSAL FOR DIAGNOSI S AND TREATMENT 2023-05-19 14:37:15 Doctor Unassigned, Narberth [facility] PHOSPHORUS 2023-01-15 08:15:00 Benita Rockwell [facility] MAGNESIUM 2023-01-15 08:15:00 Benita Rockwell [facility] BASIC METABOLIC PANEL (NA, K , CL, CO2, GLUCOSE, BUN, CREATININE, CA) 2023-01-15 08:15:00 Benita Rockwell [facility] CBC WITH DIFF 2023-01-15 08:15:00 Benita Rockwell [facility] PROTHROMBIN TIME / INR 2023-01-15 08:15:00 Benita Rockwell Daphnie [facility] MAGNESIUM 2023-01-14 10:14:00 Benita Rockwell [facility] PHOSPHORUS 2023-01-14 10:14:00 Benita Rockwell [facility] BASIC METABOLIC PANEL (NA, K , CL, CO2, GLUCOSE, BUN, CREATININE, CA) 2023-01-14 10:14:00 Benita Rockwell Daphnie [facility] CBC WITH DIFF 2023-01-14 10:14:00 Benita Rockwell [facility] PHOSPHORUS 2023-01-14 10:14:00 Hill, Benita [facility] MAGNESIUM 2023-01-14 10:14:00 Benita Rockwell [facility] BASIC METABOLIC PANEL (NA, K , CL, CO2, GLUCOSE, BUN, CREATININE, CA) 2023-01-14 10:14:00 Benita Rockwell [facility] CBC WITH DIFF 2023-01-14 10:14:00 Benita Rockwell [facility] CBC WITH DIFF 2023-01-13 10:45:00 Vaishnavi, [facility] BASIC METABOLIC PANEL (NA, K , CL, CO2, GLUCOSE, BUN, CREATININE, CA) 2023-01-13 10:45:00 Vaishnavi, [facility] MAGNESIUM 2023-01-13 10:45:00 Vaishnavi, [facility] PHOSPHORUS 2023-01-13 10:45:00 Vaishnavi, [facility] HEPATIC FUNCTION PANEL (8007 6) (ALB,T.PRO,BILI T,BU/BC,ALT,AST,ALK PHOS) 2023-01-13 10:45:00 Vaishnavi, [facility] PHOSPHORUS 2023-01-13 10:45:00 Vaishnavi, [facility] MAGNESIUM 2023-01-13 10:45:00 Vaishnavi, [facility] HEPATIC FUNCTION PANEL (8007 6) (ALB,T.PRO,BILI T,BU/BC,ALT,AST,ALK PHOS) 2023-01-13 10:45:00 Vaishnavi, [facility] BASIC METABOLIC PANEL (NA, K , CL, CO2, GLUCOSE, BUN, CREATININE, CA) 2023-01-13 10:45:00 Vaishnavi, [facility] CBC WITH DIFF 2023-01-13 10:45:00 Vaishnavi, [facility] GLUCOSE BODY FLUID 2023-01-12 20:44:00 Vaishnavi, [facility] BODY FLUID MANUAL DIFF 2023-01-12 20:44:00 Vaishnavi, [facility] T.PROTEIN BODY FLUID 2023-01-12 20:44:00 Vaishnavi, [facility] ASPIRATE OR ABSCESS CULTURE(AEROBIC/ANAEROBIC) 2023-01-12 20:44:00 Vaishnavi, [facility] LDH TOTAL BODY FLUID 2023-01-12 20:44:00 Vaishnavi, [facility] GLUCOSE BODY FLUID 2023-01-12 20:44:00 Vaishnavi, [facility] T.PROTEIN BODY FLUID 2023-01-12 20:44:00 Vaishnavi, [facility] BODY FLUID DIRECT COUNT 2023-01-12 20:44:00 Vaishnavi, [facility] ASPIRATE OR ABSCESS CULTURE(AEROBIC/ANAEROBIC) 2023-01-12 20:44:00 Vaishnavi, [facility] LDH TOTAL BODY FLUID 2023-01-12 20:44:00 Vaishnavi, [facility] PROTHROMBIN TIME / INR 2023-01-12 08:13:00 Vaishnavi, [facility] PROTHROMBIN TIME / INR 2023-01-12 08:13:00 Vaishnavi, [facility] COMP. METABOLIC PANEL (28100) 2023-01-12 03:49:00 Ciera García [facility] COMP. METABOLIC PANEL (95620) 2023-01-12 03:49:00 Ciera García [facility] CT ABDOMEN PELVIS W CONTRAST 2023-01-12 03:32:06 Ciera García [facility] CT ABDOMEN PELVIS W CONTRAST 2023-01-12 03:32:06 Ciera García [facility] POCT TEST 2023-01-12 03:02:00 Ciera García [facility] POCT TEST 2023-01-12 03:02:00 Ciera García Joana [facility] URINALYSIS 2023-01-12 02:56:00 Ciera García Joana [facility] LIPASE 2023-01-12 02:56:00 Ciera García [facility] TOTAL BETA HCG ASSAY 2023-01-12 02:56:00 Ciera García [facility] CBC WITH DIFF 2023-01-12 02:56:00 Ciera García [facility] EXTRA TUBE ORANGE 2023-01-12 02:56:00 Aroldo Siddiqui [facility] EXTRA TUBE LAV 2023-01-12 02:56:00 Aroldo Siddiqui [facility] LIPASE 2023-01-12 02:56:00 Ciera García [facility] TOTAL BETA HCG ASSAY 2023-01-12 02:56:00 Ciera García Joana [facility] CBC WITH DIFF 2023-01-12 02:56:00 Ciera García Joana [facility] URINALYSIS 2023-01-12 02:56:00 Ciera García Joana [facility] EXTRA TUBE LAV 2023-01-12 02:56:00 Aroldo Siddiqui [facility] EXTRA TUBE ORANGE 2023-01-12 02:56:00 Aroldo Siddiqui [facility] CONSENT/REFUSAL FOR DIAGNOSI S AND TREATMENT 2023-01-12 01:46:10 Doctor Unassigned, Narberth [facility] CONSENT/REFUSAL FOR DIAGNOSI S AND TREATMENT 2023-01-12 01:46:10 Doctor Unassigned, Narberth [facility] ASSIGNMENT OF BENEFITS 2022-11-21 19:49:02 Doctor Unassigned, Narberth [facility] ASSIGNMENT OF BENEFITS 2022-11-21 19:49:02 Doctor Unassigned, Narberth [facility] CONSENT/REFUSAL FOR DIAGNOSI S AND TREATMENT 2022-11-21 18:03:25 Doctor Unassigned, Narberth [facility] CONSENT/REFUSAL FOR DIAGNOSI S AND TREATMENT 2022-11-21 18:03:25 Doctor Unassigned, Narberth [facility] EMERGENCY SERVICES AGREEMENT S AND AUTHORIZATIONS 2022-11-21 05:01:00 Doctor Unassigned, Narberth [facility] CONSENT/REFUSAL FOR DIAGNOSI S AND TREATMENT 2022-09-05 13:42:02 Doctor Unassigned, Narberth [facility] LIPASE 2022-07-31 23:13:00 Manju Newell [facility] TEST, SERUM 2022-07-31 23:13:00 Blane [facility] COMP. METABOLIC PANEL ([id number]) 2022-07-31 23:13:00 Blane [facility] CBC WITH DIFF 2022-07-31 23:13:00 Blane [facility] CONSENT/REFUSAL FOR DIAGNOSI S AND TREATMENT 2022-07-31 22:49:17 Doctor Unassigned, Narberth [facility] XR ANKLE 3+ VW RIGHT 2022-07-15 16:00:00 Cari Kaur [facility] XR FOOT 3+ VW RIGHT 2022-07-15 16:00:00 Cari Kaur [facility] XR FOOT 3+ VW RIGHT 2022-07-15 16:00:[address] [facility] PATIENT FINANCIAL POLICY 2022-07-15 15:25:53 Doctor Unassigned, Narberth [facility] POCT MOLECULAR STREP 2022-06-23 16:06:00 Unknown, Attending [facility] ASSIGNMENT OF BENEFITS 2022-06-23 15:18:28 Doctor Unassigned, Narberth [facility] COMP. METABOLIC PANEL (10668) 2022-05-05 19:14:00 [facility] 2022-05-05 19:14[facility]00 [facility] 2022-05-05 [facility]:00[facility]05 18:58[facility] PEL[facility] WO CONTRAST 2022-04-26 15:11:00 Singer [facility] COMP. METABOLIC PANEL ([id number]) 2022-04-26 14:49:00 Singer [facility] CBC WITH DIFF 2022-04-26 14:49:00 Singer [facility] URINALYSIS 2022-04-26 14:49:00 Singer [facility] POCT TEST 2022-04-26 14:45:00 Singer [facility] CONSENT/REFUSAL FOR DIAGNOSI S AND TREATMENT 2022-04-26 14:22:29 Doctor Unassigned, Narberth [facility] POCT TEST 2022-04-26 01:22:00 Zion Bridges [facility] ASSIGNMENT OF BENEFITS 2022-04-26 00:54:02 Doctor Unassigned, Narberth [facility] URINALYSIS 2022-04-26 00:45:00 Zion Bridges [facility] CONSENT/REFUSAL FOR DIAGNOSI S AND TREATMENT 2022-04-26 00:16:47 Doctor Unassigned, Narberth [facility] BASIC METABOLIC PANEL (NA, K , CL, CO2, GLUCOSE, BUN, CREATININE, CA) 2022-04-07 22:35:00 Olamide Garvin [facility] CBC WITH DIFF 2022-04-07 22:35:00 Olamide Garvin [facility] URINALYSIS 2022-04-07 21:36:00 Olamide Garvin [facility] URINE DRUG (IMMUNOASSAY) - COMPREHENSIVE DRUG SCREEN W/O REFLEX 2022-04-07 21:36:00 Olamide Garvin [facility] CONSENT/REFUSAL FOR DIAGNOSI S AND TREATMENT 2022-04-07 19:29:15 Doctor Unassigned, Narberth [facility] POCT TEST 2022-03-24 14:07:00 Kellie Duncan [facility] CONSENT/REFUSAL FOR DIAGNOSI S AND TREATMENT 2022-03-24 13:27:20 Doctor Unassigned, Narberth [facility] CT ABDOMEN PELVIS WO CONTRAST 2022-03-15 14:09:04 Anna Gould [facility] URINALYSIS 2022-03-15 13:53:00 Anna Gould [facility] POCT TEST 2022-03-15 13:52:00 Bryanna [facility] CONSENT/REFUSAL FOR DIAGNOSI S AND TREATMENT 2022-03-15 13:37:02 Doctor Unassigned, Narberth [facility] POCT TEST 2022-03-11 14:59:00 Angelica Viveros [facility] FLU VACC (), 6 MO-6 4 YRS, .5ML, IM, QUAD (FLUCELVAX) 2022-02-27 13:34:55 Vijay Martinez [facility] NOTICE OF PRIVACY PRACTICES 2022-02-21 06:06:30 Doctor Unassigned, Narberth [facility] CONSENT/REFUSAL FOR DIAGNOSI S AND TREATMENT 2022-02-21 06:03:41 Doctor Unassigned, Narberth [facility] XR ANKLE <3 VW RIGHT 2022 17:56:42 Maggie Hamilton [facility] CT ABDOMEN PELVIS W CONTRAST 2022 17:44:17 Maggie Hamilton [facility] CT TRAUMA CERVICAL SPINE WO CONTRAST 2022 17:43:49 Maggie Hamilton [facility] POCT TEST 2022 17:27:00 Maggie Hamilton [facility] COMP. METABOLIC PANEL (60380) 2022 17:17:00 Maggie Hamilton [facility] CBC WITH DIFF 2022 17:17:00 Maggie Hamilton [facility] CONSENT/REFUSAL FOR DIAGNOSI S AND TREATMENT 2022 16:53:13 Doctor Unassigned, Narberth [facility] US GALL BLADDER 2022-01-18 12:31:09 Bernardo Levy [facility] US PELVIS COMPLETE WITH TRANSVAGINAL 2022-01-18 12:21:13 Melvin Zhao [facility] CT ABDOMEN PELVIS W CONTRAST 2022-01-18 11:20:50 Melvin Zhao [facility] POCT TEST 2022-01-18 10:57:00 Jayy Kennedy [facility] COVID-19 (ID NOW RAPID TESTING) 10:57:00 Jayy Kennedy [facility] URINALYSIS 2022-01-18 10:47:00 Jayy Kennedy [facility] LIPASE 2022-01-18 10:29:00 Jayy Kennedy [facility] TEST, SERUM 2022-01-18 10:29:00 Jayy Kennedy [facility] HEPATIC FUNCTION PANEL (8007 6) (ALB,T.PRO,BILI T,BU/BC,ALT,AST,ALK PHOS) 2022-01-18 10:29:00 Jayy Kennedy [facility] BASIC METABOLIC PANEL (NA, K , CL, CO2, GLUCOSE, BUN, CREATININE, CA) 2022-01-18 10:29:00 Jayy Kennedy [facility] CBC WITH DIFF 2022-01-18 10:29:00 Jayy Kennedy [facility] CONSENT/REFUSAL FOR DIAGNOSI S AND TREATMENT 2022-01-18 10:13:31 Doctor Unassigned, Narberth [facility] CT HEAD WO CONTRAST 2022-01-15 15:22:29 Maura Samayoa [facility] TEST, SERUM 2022-01-15 14:36:00 Maura Samayoa [facility] BASIC METABOLIC PANEL (NA, K , CL, CO2, GLUCOSE, BUN, CREATININE, CA) 2022-01-15 14:36:00 Maura Samayoa [facility] CBC WITH DIFF 2022-01-15 14:36:00 Maura Samayoa [facility] CONSENT/REFUSAL FOR DIAGNOSI S AND TREATMENT 2022-01-15 13:28:12 Doctor Unassigned, Narberth [facility] XR CERVICAL SPINE 4 VW 2022-01-09 00:29:16 Gabriela [facility] XR LUMBAR SPINE 4 VW 2022-01-09 00:29:16 Gabriela [facility] XR SPINE THORACIC 3 VW 2022-01-09 00:29:16 Gabriela [facility] URINALYSIS 2022-01-08 23:50:00 Gabriela [facility] CONSENT/REFUSAL FOR DIAGNOSI S AND TREATMENT 2022-01-08 22:51:08 Doctor Unassigned, Narberth [facility] GALV ONLY - VAGINAL PATHOGEN S BY NUCLEIC ACID TESTING 2021-12-12 18:37:00 Prasanna Vargas [facility] URINE CULTURE 2021-12-12 18:32:00 Prasanna Vargas [facility] POCT TEST 2021-12-12 18:31:00 Prasanna Vargas [facility] POCT URINALYSIS W/O SPECIFIC GRAVITY 2021-12-12 18:31:00 Prasanna Vargas [facility] Encounters Start Date/Time End Date/Time Encounter Type Admission Type Attending [facility] Facility Care Department Encounter ID Source 2021-03-14 03:14:31 [place] [id number] [facility] 2021-03-13 20:05:20 Emergency [facility] [id number] [facility] 2021-03-13 12:48:28 Emergency [facility] [id number] [facility] 2021-03-13 02:43:51 Emergency [facility] [id number] [facility] 2021-03-13 00:27:09 Emergency [facility] [id number] [facility] 2021-03-12 22:10:36 [id number] 2021-03-12 20:04:05 Emergency [facility] [id number] [facility] 2021-03-12 15:25:05 Emergency [facility] [id number] [facility] 2021-03-12 11:43:36 Emergency [facility] [id number] [facility] 2021-03-12 07:41:37 [facility] [id number] 2021-03-12 05:43:47 Emergency [facility] [id number] [facility] 2021-03-12 03:43:41 Emergency [facility] [id number] [facility] 2021-03-12 01:31:27 Emergency [facility] [id number] [facility] 2021-03-12 00:56:44 Emergency X [facility] [id number] [facility] 2021-03-12 00:56:31 Emergency [facility] [id number] [facility] 2021-03-11 17:47:02 Emergency [facility] [id number] [facility] 2021-03-11 16:27:15 Emergency [facility] [id number] 2021-03-11 12:00:58 Emergency [facility] [id number] [facility] 2021-03-11 10:33:59 Emergency [facility] [id number] [facility] 2021-03-11 01:36:52 Emergency [facility] [id number] [facility] 2021-03-10 23:35:34 Emergency [facility] [id number] [facility] 2021-03-10 19:06:16 Emergency [facility] [id number] [facility] 2021-03-10 12:39:47 Emergency [facility] [id number] [facility] 2021-03-10 06:54:04 [facility] [id number] 2021-03-09 13:25:44 Outpatient P [facility] [id number] [facility] 2021-03-09 13:08:01 Outpatient [facility] [id number] [facility] 2021-03-09 12:37:25 Outpatient [facility] [id number] [facility] 2021-03-09 11:51:20 Outpatient [facility] [id number] [facility] 2024-04-19 07:55:00 2024-04-19 09:58:00 Emergency X BERNARDO LEVY BRENT [facility] E[facility] [id number] [facility] 2024-04-19 07:55:00 2024-04-19 09:58:00 Emergency Bernardo Levy [facility] 1.2.840.114 350.1.13.10 4.2.7.2.686 [id number] [facility] 2024-03-18 00:00:00 2024-04-18 18:19:35 Patient Secure Msg Doctor Unassigned, Narberth Doctor Unassigned, Narberth [facility] [place] [facility] 1.2840.114 350.1.13.10 4.2.7.2.686 [id number] [facility] 2024-04-12 11:54:00 2024-04-12 14:39:00 Emergency T ARAM CLARK [facility] STR [id number] [facility] 2024-04-12 11:54:00 2024-04-12 14:39:00 Emergency Karma [facility] [place] ([place]) 1.2840.114 350.1.13.10 4.2.7.2.686 [id number] [facility] 2024-04-12 09:23:00 2024-04-12 10:42:00 Emergency X MAGGIE HAMILTON SANDRA [facility] ERT [id number] [facility] 2024-04-12 09:23:00 2024-04-12 10:42:00 Emergency Olamide Garvin Sandra J [facility] 1.2840.114 350.1.13.10 4.2.7.2.686 [id number] [facility] 2024-03-10 09:43:00 2024-03-13 10:40:00 Inpatient X TAJ BARKER MICHAEL [facility] [id number] [facility] 2024-03-10 09:43:00 2024-03-13 10:40:00 Hospital Encounter Fidel, Alfredo Manuel, Ba Naik, Jose Gil, Taj Milner [facility] ([place]) 1.2840.114 350.1.13.10 4.2.7.2.686 [id number] [facility] 2024-03-06 00:00:00 2024-03-06 08:40:48 Transition of Care Marlys Odell Antoinette [facility] 1.2.840.114 350.1.13.10 4.2.7.2.686 [id number] [facility] 2024-03-04 06:46:00 2024-03-05 16:30:00 Outpatient X JOSE NAIK MYRNA [facility] [id number] [facility] 2024-03-04 06:46:00 2024-03-05 16:30:00 Emergency Jesus Muñoz Myrna [facility] 1.2.840.114 350.1.13.10 4.2.7.2.686 [id number] [facility] 2024-03-03 00:00:00 2024-03-04 15:45:46 Patient Secure Toi Piedra [facility] 1.2.840.114 350.1.13.10 4.2.7.2.686 [id number] [facility] 2024-03-03 00:00:00 2024-03-03 12:14:14 Telephone Giselle Vance [facility] ([place] 1.2.840.114 350.1.13.10 4.2.7.2.686 [id number] [facility] 2024-02-28 00:00:00 2024-02-28 09:08:41 Transition of Care Tc Renteria Michele A [facility] 1.2.840.114 350.1.13.10 4.2.7.2.686 [id number] [facility] 2024-02-22 09:35:00 2024-02-27 16:59:00 Inpatient X HANY BO [facility] [id number] [facility] 2024-02-22 09:35:00 2024-02-27 16:59:00 Hospital Encounter Colin Jones Megan A [facility] 1.2.840.114 350.1.13.10 4.2.7.2.686 [id number] [facility] 2024-02-27 09:40:00 2024-02-27 10:51:00 Surgery Chitra Toi [facility] 1.2.840.114 350.1.13.10 4.2.7.2.686 [id number] [facility] 2024-02-27 09:22:00 2024-02-27 10:26:00 Anesthesia Event Peter Reece [facility] 1.2.840.114 350.1.13.10 4.2.7.2.686 [id number] [facility] 2024-02-24 00:00:00 2024-02-24 09:18:09 Telephone Naty Mensah [facility] 1.2.840.114 350.1.13.10 4.2.7.2.686 [id number] [facility] 2023-09-12 00:00:00 2023-09-12 00:00:00 Outpatient R ROLDAN LIM [facility] [id number] [facility] 2023-08-26 00:00:00 2023-08-26 00:00:00 Transition of Care Marlys Odell 1.2.840.114 350.1.13.10 4.2.7.2.686 [id number] [facility] 2023-08-23 08:31:00 2023-08-24 13:25:00 Outpatient X ROLDAN LIM [facility] [place] [id number] [facility] 2023-05-19 09:04:00 2023-05-19 12:20:00 Emergency X TOD SELLERS [facility] ERT [id number] [facility] 2023-05-19 09:04:00 2023-05-19 12:20:00 Emergency Tod Sellers [facility] 1.2.840.114 350.1.13.10 4.2.7.2.686 [id number] [facility] 2023-04-05 00:00:00 2023-04-05 00:00:00 Patient Secure Msg Prasanna Vargas [facility] 1.2.840.114 350.1.13.10 4.2.7.2.686 [id number] [facility] 2023-01-16 00:00:00 2023-01-16 00:00:00 Transition of Care Marlys Odell 1.2.840.114 350.1.13.10 4.2.7.2.686 [id number] [facility] 2023-01-11 21:06:00 2023-01-15 16:00:00 Inpatient X OLIVER STEELE [facility] [id number] [facility] 2023-01-11 21:06:00 2023-01-15 16:00:00 Hospital Encounter Aroldo Siddiqui, Oliver Beltran [facility] 1.2.840.114 350.1.13.10 4.2.7.2.686 [id number] [facility] 2023-01-12 00:00:00 2023-01-12 00:00:00 Travel 1.2.840.1 [id number] 3.104.2.7 .3.835175 .8 1.2.840.114 350.1.13.10 4.2.7.3.698 [id number] [facility] 2023-01-11 00:00:00 2023-01-11 00:00:00 Travel 1.2.840.1 [id number] 3.104.2.7 .3.797077 .8 1.2.840.114 350.1.13.10 4.2.7.3.698 [id number] [facility] 2022-12-12 09:30:00 2022-12-12 09:30:00 Outpatient PRASANNA LOOMIS [facility] [id number] [facility] 2022-11-21 13:08:00 2022-11-21 16:45:00 Emergency X MANJU NEWELL [facility] ERT [id number] [facility] 2022-11-21 13:08:00 2022-11-21 16:45:00 Emergency Zion Bridges Christopher 1.2.840.1 [id number] 3.104.2.7 .3.316743 .8 [id number] [facility] 2022-11-21 00:00:00 2022-11-21 00:00:00 Travel 1.2.840.1 [id number] 3.104.2.7 .3.861737 .8 1.2.840.114 350.1.13.10 4.2.7.3.698 [id number] [facility] 2022-11-15 09:40:00 2022-11-15 09:40:00 Outpatient LIAN LABOY CHRISTINE [facility] [id number] [facility] 2022-11-15 00:00:00 2022-11-15 00:00:00 Orders Only Palak Marrufo 1.2.840.1 [id number] 3.104.2.7 .3.649719 .8 [id number] [facility] 2022-11-06 13:00:00 2022-11-06 13:00:00 Outpatient VIJAY ARAUZ [facility] [id number] [facility] 2022-10-29 00:00:00 2022-10-29 00:00:00 Patient Secure Msg Lian Greene 1.2.840.1 [id number] 3.104.2.7 .3.991698 .8 [id number] [facility] 2022-10-29 00:00:00 2022-10-29 00:00:00 Patient Secure Msg Prasanna Vargas 1.2.840.1 [id number] 3.104.2.7 .3.730704 .[id number] [facility] 2022-10-03 00:00:00 2022-10-03 00:00:00 Letter (Out) Roldan Lim [facility] TO[facility] 1.2.840.114 350.1.13.10 4.2.7.2.686 [id number] [facility] 2022-10-02 10:00:00 2022-10-02 10:00:00 Outpatient R CELINA FINNEY [facility] [id number] [facility] 2022-10-01 09:40:00 2022-10-01 09:40:00 Outpatient R REJI DÍAZ [facility] [id number] [facility] 2022-09-25 00:00:00 2022-09-25 00:00:00 Telephone Rad Serra [facility] 1..840.114 350.1.13.10 4.2.7.2.686 [id number] [facility] 2022-09-21 09:30:00 2022-09-21 09:30:00 Outpatient KASSANDRA MCKINLEY [facility] [id number] [facility] 2022-09-21 00:00:00 2022-09-21 00:00:00 Letter (Out) Kassandra Pugh [facility] TO[facility] 1.2.840.114 350.1.13.10 4.2.7.2.686 [id number] [facility] 2022-09-21 00:00:00 2022-09-21 00:00:00 [facility] 1.2.840.114 350.1.13.10 4.2.7.2.686 [id number] [facility] 2022-09-21 00:00:00 2022-09-21 00:00:00 Telephone Chitra [facility] 1.84.114 350.1.13.10 4.2.7.2.686 [id number] [facility] 2022-09-14 09:30:00 2022-09-14 09:30:00 [facility] [id number] [facility] 2022-09-12 00:00:00 2022-09-12 00:00:00 Telephone Cristian [facility] 1.84.114 350.1.13.10 4.2.7.2.686 [id number] [facility] 2022-09-07 11:30:00 2022-09-07 11:30:00 [facility] [id number] [facility] 2022-09-05 08:44:00 2022-09-05 13:15:00 Emergency X KENNEDY WHITLEY [facility] ERT [id number] [facility] 2022-09-05 08:44:00 2022-09-05 13:15:00 Emergency Kennedy Whitley [facility] 1.2840.114 350.1.13.10 4.2.7.2.686 [id number] [facility] 2022-09-04 00:00:00 2022-09-04 00:00:00 Telephone Kassandra Pugh [facility] 1.2.840.114 350.1.13.10 4.2.7.2.686 [id number] [facility] 2022-09-04 00:00:00 2022-09-04 00:00:00 Patient Secure Msg Rad Serra [facility] PROFESS[facility] NAL BUILD[facility] 1.2.840.114 350.1.13.10 4.2.7.2.686 [id number] [facility] 2022-08-29 09:00:00 2022-08-29 09:00:00 Outpatient R CELINA FINNEY [facility] [id number] [facility] 2022-08-14 00:00:00 2022-08-14 00:00:00 Patient Secure Msg Doctor Unassigned, [place] [facility] 1.2.840.114 350.1.13.10 4.2.7.2.686 [id number] [facility] 2022-07-31 17:56:00 2022-07-31 20:30:00 Emergency X MANJU NEWELL [facility] ERT [id number] [facility] 2022-07-31 17:56:00 2022-07-31 20:30:00 Emergency Nemacolin, Manju [facility] 1..840.114 350.1.13.10 4.2.7.2.686 [id number] [facility] 2022-07-15 09:46:45 2022-07-15 23:59:00 Outpatient R CARI KAUR [facility] [id number] [facility] 2022-07-15 09:46:45 2022-07-15 23:59:00 Hospital Encounter Cari Kaur [facility] TOÑO?TES[facility] 1.84.114 350.1.13.10 4.2.7.2.686 [id number] [facility] 2022-07-15 09:46:45 2022-07-15 23:59:00 Hospital Encounter Cari Kaur [facility] TOÑO?TESSA [facility] 1.84.114 350.1.13.10 4.2.7.2.686 [id number] [facility] 2022-07-15 09:20:00 2022-07-15 10:29:17 Urgent Care Cari Kaur Unknown, Attending [facility] 1.84.114 350.1.13.10 4.2.7.2.686 [id number] [facility] 2022-07-15 00:00:00 2022-07-15 00:00:00 Orders Only Doctor Unassigned, Narberth [facility] 1.84.114 350.1.13.10 4.2.7.2.686 [id number] [facility] 2022-06-23 09:20:00 2022-06-23 10:27:39 Outpatient R PAUL SAMAYOA [facility] [id number] [facility] 2022-06-23 09:20:00 2022-06-23 10:27:39 Urgent Care Paul Samayoa Unknown, Attending [facility] 1.2.840.114 350.1.13.10 4.2.7.2.686 [id number] [facility] 2022-06-23 00:00:00 2022-06-23 00:00:00 Orders Only Doctor Unassigned, Narberth [facility] 1.840.114 350.1.13.10 4.2.7.2.686 [id number] [facility] 2022-06-15 09:40:00 2022-06-15 09:40:00 Outpatient R LIAN GREENE [facility] [id number] [facility] 2022-05-29 08:00:00 2022-05-29 08:00:00 Outpatient KASSANDRA MCKINLEY [facility] [id number] [facility] 2022-05-15 09:20:00 2022-05-15 09:20:00 Outpatient R BENNETT MILLER [facility] [id number] [facility] 2022-05-11 09:30:00 2022-05-11 09:30:00 Outpatient KASSANDRA MCKINLEY [facility] [id number] [facility] 2022-05-05 12:26:00 2022-05-05 16:11:00 Emergency X KARON NORTON [facility] ERT [id number] [facility] 2022-05-05 12:26:00 2022-05-05 16:11:00 Emergency Karon Norton [facility] 1.840.114 350.1.13.10 4.2.7.2.686 [id number] [facility] 2022-05-01 00:00:00 2022-05-01 00:00:00 Outpatient R PRASANNA VARGAS VIEN [facility] [id number] [facility] 2022-04-26 08:30:00 2022-04-26 09:59:00 Emergency X ZION BRIDGES [facility] ERT [id number] [facility] 2022-04-26 08:30:00 2022-04-26 09:59:00 Emergency Zion Bridges [facility] 1.840.114 350.1.13.10 4.2.7.2.686 [id number] [facility] 2022-04-25 18:23:00 2022-04-25 21:55:00 Emergency X KENNEDY WHITLEY [facility] ERT [id number] [facility] 2022-04-25 18:23:00 2022-04-25 21:55:00 Emergency Kennedy Whitley [facility] 1.2840.114 350.1.13.10 4.2.7.2.686 [id number] [facility] 2022-04-19 10:00:00 2022-04-19 10:00:00 Outpatient LIAN LABOY [facility] [id number] [facility] 2022-04-12 00:00:00 2022-04-12 00:00:00 [facility] 1..840.114 350.1.13.10 4.2.7.2.686 [id number] [facility] 2022-04-11 00:00:00 2022-04-11 00:00:00 Telephone Darrion Wyatt [facility] TO[facility] 1..840.114 350.1.13.10 4.2.7.2.686 [id number] [facility] 2022-04-10 00:00:00 2022-04-10 00:00:00 Tele[facility] 1.2840.114 350.1.13.10 4.2.7.2.686 [id number] [facility] 2022-04-09 09:30:00 2022-04-09 09:30:00 Office [facility] 1.2840.114 350.1.13.10 4.2.7.2.686 [id number] [facility] 2022-04-09 09:30:00 2022-04-09 09:21:44 Outpatient R KASSANDRA PUGH [facility] [id number] [facility] 2022-04-07 13:41:00 2022-04-07 17:49:00 Emergency X OLAMIDE GARVIN [facility] ERT [id number] [facility] 2022-04-07 13:41:00 2022-04-07 17:49:00 Emergency Olamide Garvin G [facility] 1.84.114 350.1.13.10 4.2.7.2.686 [id number] [facility] 2022-04-07 00:00:00 2022-04-07 00:00:00 Patient Secure Msg Doctor Unassigned, Narberth [facility] 1.114 350.1.13.10 4.2.7.2.686 [id number] [facility] 2022-04-04 00:00:00 2022-04-04 00:00:00 [facility] 1.840.114 350.1.13.10 4.2.7.2.686 [id number] [facility] 2022-04-02 10:30:00 2022-04-02 10:30:00 [facility] [id number] [facility] 2022-03-28 00:00:00 2022-03-28 00:00:00 Patient Secure Msg Doctor Unassigned, [place] [facility] 1.840.114 350.1.13.10 4.2.7.2.686 [id number] [facility] 2022-03-24 07:35:00 2022-03-24 13:11:00 Emergency X KELLIE DUNCAN [facility] ERT [id number] [facility] 2022-03-24 07:35:00 2022-03-24 13:11:00 Emergency Kellie Duncan E [facility] 1.2840.114 350.1.13.10 4.2.7.2.686 [id number] [facility] 2022-03-23 10:30:00 2022-03-23 10:30:00 Outpatient KASSANDRA MCKINLEY [facility] [id number] [facility] 2022-03-23 00:00:00 2022-03-23 00:00:00 Telephone Darrion Wyatt [facility] TOÑO?[facility] 1.2840.114 350.1.13.10 4.2.7.2.686 [id number] [facility] 2022-03-22 00:00:00 2022-03-22 00:00:00 Telephone Darrion Wyatt [facility] TOÑO?[facility] 1.2840.114 350.1.13.10 4.2.7.2.686 [id number] [facility] 2022-03-22 00:00:00 2022-03-22 00:00:00 Refill Darrion Wyatt [facility] TOÑO?[facility] 1.2840.114 350.1.13.10 4.2.7.2.686 [id number] [facility] 2022-03-21 00:00:00 2022-03-21 00:00:00 Telephone Darrion Wyatt [facility] TOÑO?[facility] 1.2840.114 350.1.13.10 4.2.7.2.686 [id number] [facility] 2022-03-15 14:00:00 2022-03-15 14:36:19 [facility] [id number] [facility] 2022-03-15 14:00:00 2022-03-15 14:36:19 [facility] 1..840.114 350.1.13.10 4.2.7.2.686 [id number] [facility] 2022-03-15 08:40:00 2022-03-15 10:47:00 Emergency X ANNA GOULD [facility] ERT [id number] [facility] 2022-03-15 08:40:00 2022-03-15 10:47:00 Emergency Anna Gould [facility] 1..840.114 350.1.13.10 4.2.7.2.686 [id number] [facility] 2022-03-14 10:30:00 2022-03-14 10:30:00 Outpatient R PRASANNA VARGAS [facility] [id number] [facility] 2022-03-11 09:22:00 2022-03-11 12:15:00 Emergency [facility]ILAH [facility] [id number] [facility] 2022-03-11 09:22:00 2022-03-11 12:15:00 Emergency Rosemariekamilah Angelica [facility] 1..840.114 350.1.13.10 4.2.7.2.686 [id number] [facility] 2022-03-06 08:30:00 2022-03-06 08:30:00 Outpatient KASSANDRA MCKINLEY [facility] [id number] [facility] 2022-03-02 00:00:00 2022-03-02 00:00:00 Telephone Darrion Wyatt [facility] 1..840.114 350.1.13.10 4.2.7.2.686 [id number] 092 [id number] [facility] 2022-02-28 00:00:00 2022-02-28 00:00:00 Patient Secure Msg Doctor Unassigned, [facility] 1.2.840.114 350.1.13.10 4.2.7.2.686 [id number] [facility] 2022-02-27 09:30:00 2022-02-27 09:49:42 Outpatient KASSANDRA MCKINLEY [facility] [id number] [facility] 2022-02-27 09:30:00 2022-02-27 09:49:42 [facility] 1..840.114 350.1.13.10 4.2.7.2.686 [id number] [facility] 2022-02-27 08:00:00 2022-02-27 09:12:17 Office Visit Víctorkassandra Vijay [facility] 1..840.114 350.1.13.10 4.2.7.2.686 [id number] [facility] 2022-02-26 11:30:00 2022-02-26 11:30:00 Outpatient KASSANDRA MCKINLEY [facility] [id number] [facility] 2022-02-21 01:20:00 2022-02-21 03:44:00 Emergency MAGGIE MONTANEZ [facility] ERT [id number] [facility] 2022-02-21 01:20:00 2022-02-21 03:44:00 Emergency Maggie Hamilton [facility] 1..840.114 350.1.13.10 4.2.7.2.686 [id number] [facility] 2022-02-19 00:00:00 2022-02-19 00:00:00 Patient Secure Msg Kendal Zamudio [facility] 1.2840.114 350.1.13.10 4.2.7.2.686 [id number] [facility] 2022-02-19 00:00:00 2022-02-19 00:00:00 Patient Secure Msg Kendal Zamudio [facility] 1.2840.114 350.1.13.10 4.2.7.2.686 [id number] [facility] 2022-02-19 00:00:00 2022-02-19 00:00:00 Patient Secure Msg Ade Bradford [facility] 1.2840.114 350.1.13.10 4.2.7.2.686 [id number] [facility] 2022-02-19 00:00:00 2022-02-19 00:00:00 Patient Secure Msg Martin Ross Farzana [facility] 1.2840.114 350.1.13.10 4.2.7.2.686 [id number] [facility] 2022 11:58:00 2022 15:13:00 Emergency X MAGGIE HAMILTON [facility] ERT [id number] [facility] 2022 11:58:00 2022 15:13:00 Emergency Maggie Hamilton [facility] 1.2840.114 350.1.13.10 4.2.7.2.686 [id number] [facility] 2022-02-09 09:00:00 2022-02-09 09:00:00 Outpatient R CRICKET TAYLOR [facility] [id number] [facility] 2022-02-06 10:00:00 2022-02-06 10:00:00 Outpatient VIJAY ARAUZ [facility] [id number] [facility] 2022-02-05 09:45:00 2022-02-05 10:05:00 Nurse Visit Nurse, Filippo [facility] Ileana Medrano [facility] 1..840.114 350.1.13.10 4.2.7.2.686 [id number] [facility] 2022-02-05 09:20:00 2022-02-05 09:20:00 Outpatient FLACO KEE [facility] [id number] [facility] 2022-01-26 00:00:00 2022-01-26 00:00:00 Case Management Prasanna Vargas [facility] PROF[facility] NAL [facility] 1..840.114 350.1.13.10 4.2.7.2.686 [id number] [facility] 2022-01-22 11:00:00 2022-01-22 11:00:00 Outpatient VIJAY ARAUZ [facility] [id number] [facility] 2022-01-19 00:00:00 2022-01-19 00:00:00 Patient Secure Msg Doctor Unassigned, Narberth [facility] 1..840.114 350.1.13.10 4.2.7.2.686 [id number] [facility] 2022-01-18 05:17:00 2022-01-18 10:25:00 Emergency X BERNARDO LEVY [facility] ERT [id number] [facility] 2022-01-18 05:17:00 2022-01-18 10:25:00 Emergency Jayy Kennedy [facility] 1.2.840.114 350.1.13.10 4.2.7.2.686 [id number] [facility] 2022-01-15 08:34:00 2022-01-15 10:49:00 Emergency X MAURA SAMAYOA [facility] ERT [id number] [facility] 2022-01-15 08:34:00 2022-01-15 10:49:00 Emergency Larry Perez Maura Samayoa [facility] 1..840.114 350.1.13.10 4.2.7.2.686 [id number] [facility] 2022-01-08 18:04:00 2022-01-08 20:09:00 [facility] [id number] 2022-01-08 18:04:00 2022-01-08 20:09:00 Emergency Humberto Ochoa [facility] 1..840.114 350.1.13.10 4.2.7.2.686 [id number] [facility] 2021-12-12 13:30:00 2021-12-12 13:40:21 Outpatient Farzana CARNES TETO [facility] [id number] [facility] 2021-12-12 13:30:00 2021-12-12 13:40:21 Office Visit Prasanna Vargas [facility] 1..840.114 350.1.13.10 4.2.7.2.686 [id number] [facility] 2021-12-12 13:30:00 2021-12-12 13:40:21 Outpatient TETO BRANTLEY [facility] [id number] [facility] 2021-12-12 13:30:00 2021-12-12 13:40:21 Outpatient TETO BRANTLEY [facility] [id number] [facility] 2021-12-11 16:15:00 2021-12-11 16:15:00 Outpatient Farzana BRADFORDADE [facility] [id number] [facility] 2021-12-05 14:15:00 2021-12-05 14:15:00 Outpatient ROMULO BROWNING [facility] [id number] [facility] 2021-11-28 08:49:00 2021-11-28 11:02:00 Emergency X KARON NORTON [facility] ERT [id number] [facility] 2021-11-28 08:49:00 2021-11-28 11:02:00 Emergency Karon Norton [facility] 1.2.840.114 350.1.13.10 4.2.7.2.686 [id number] [facility] 2021-11-28 00:00:00 2021-11-28 00:00:00 Patient Secure Msg Cricket Taylor [facility] 1.2840.114 350.1.13.10 4.2.7.2.686 [id number] [facility] 2021-11-24 18:14:00 2021-11-24 21:04:00 Emergency X Kaycee MÉNDEZ [facility] ERT [id number] [facility] 2021-11-24 18:14:00 2021-11-24 21:04:00 Emergency Kaycee Méndez [facility] 1.2840.114 350.1.13.10 4.2.7.2.686 [id number] [facility] 2021-11-24 00:00:00 2021-11-24 00:00:00 Telephone Cricket Taylor [facility]ILD [facility] 1.2840.114 350.1.13.10 4.2.7.2.686 [id number] [facility] 2021-11-20 00:00:00 2021-11-20 00:00:00 Patient Secure Kendal Medrano [facility]ILD[facility] 1.2.840.114 350.1.13.10 4.2.7.2.686 [id number] [facility] 2021-11-19 00:00:00 2021-11-19 00:00:00 Letter (Out) Leslie Santacruz [facility] 1.2.840.114 350.1.13.10 4.2.7.2.686 [id number] [facility] 2021-11-18 10:41:40 2021-11-18 23:59:00 [id number] [facility] 2021-11-18 10:41:40 2021-11-18 23:59:00 [facility] 1.2.840.114 350.1.13.10 4.2.7.2.686 [id number] [facility] 2021-11-18 10:20:00 2021-11-18 10:53:20 Urgent Care Oliver [facility] TOÑO?TESSA [facility] BUILD[facility] 1.2.840.114 350.1.13.10 4.2.7.2.686 [id number] [facility] 2021-11-09 10:30:00 2021-11-09 10:30:00 Outpatient CELINA STONE [facility] [id number] [facility] 2021-10-25 13:20:00 2021-10-25 13:20:00 [facility] 1.2.840.114 350.1.13.10 4.2.7.2.686 [id number] [facility] 2021-10-25 13:20:00 2021-10-25 12:47:59 Outpatient ILEANA CASE [facility] [id number] [facility] 2021-10-25 00:00:00 2021-10-25 00:00:00 Patient Secure Msg Vijay Martinez [facility] TOÑO?[facility] BUILD[facility] 1.2.840.114 350.1.13.10 4.2.7.2.686 [id number] [facility] 2021-10-25 00:00:00 2021-10-25 00:00:00 Telephone Vijay Martinez [facility] TO[facility] 1.2.840.114 350.1.13.10 4.2.7.2.686 [id number] [facility] 2021-10-25 00:00:00 2021-10-25 00:00:00 Telephone Provider, [facility] 1.2.840.114 350.1.13.10 4.2.7.2.686 [id number] [facility] 2021-10-25 00:00:00 2021-10-25 00:00:00 Telephone Nurse, [facility] 1.2.840.114 350.1.13.10 4.2.7.2.686 [id number] [facility] 2021-10-24 10:15:00 2021-10-24 10:15:00 Outpatient ROMULO BROWNING [facility] [id number] [facility] 2021-10-24 10:15:00 2021-10-24 10:15:00 Outpatient ROMULO BROWNING [facility] [id number] [facility] 2021-10-11 09:30:00 2021-10-11 09:30:00 Outpatient ROMULO BROWNING [facility] [id number] [facility] 2021-10-10 13:30:00 2021-10-10 13:30:00 Outpatient PRASANNA LOOMIS [facility] [id number] [facility] 2021-10-10 13:30:00 2021-10-10 13:30:00 Outpatient R PRASANNA VARGAS [facility] [id number] [facility] 2021-10-10 13:30:00 2021-10-10 13:30:00 Outpatient R PRASANNA VARGAS [facility] [id number] [facility] 2021-10-10 13:30:00 2021-10-10 13:30:00 Outpatient PRASANNA LOOMIS [facility] [id number] [facility] 2021-10-10 13:30:00 2021-10-10 13:30:00 Outpatient R PRASANNA VARGAS [facility] [id number] [facility] 2021-10-10 13:30:00 2021-10-10 13:30:00 Outpatient R PRASANNA VARGAS [facility] [id number] [facility] 2021-10-10 13:30:00 2021-10-10 13:30:00 Outpatient R PRASANNA VARGAS [facility] [id number] [facility] 2021-10-05 00:00:00 2021-10-05 00:00:00 Patient Secure [facility] 1.2.840.114 350.1.13.10 4.2.7.2.686 [id number] [facility] 2021-10-05 00:00:00 2021-10-05 00:00:00 Patient Secure Msg Kendal Zamudio [facility] 1.2.840.114 350.1.13.10 4.2.7.2.686 [id number] [facility] 2021-10-04 00:00:00 2021-10-04 00:00:00 Pre Visit Outreach Melia Rodriguez 1.2.840.114 350.1.13.10 4.2.7.2.686 [id number] [facility] 2021-09-28 13:30:00 2021-09-28 13:45:00 Office Visit Celina Mixon [facility] 1.2.840.114 350.1.13.10 4.2.7.2.686 [id number] [facility] 2021-09-28 13:30:00 2021-09-28 13:30:00 Outpatient CELINA STONE [facility] [id number] [facility] 2021-09-28 13:30:00 2021-09-28 13:30:00 Outpatient CELINA STONE [facility] [id number] [facility] 2021-09-28 00:00:00 2021-09-28 00:00:00 Patient Secure Msg Celina Mixon [facility] 1.2.840.114 350.1.13.10 4.2.7.2.686 [id number] [facility] 2021-09-27 14:00:00 2021-09-27 14:00:00 Outpatient TETO BRANTLEY [facility] [id number] [facility] 2021-09-27 09:30:00 2021-09-27 09:30:00 Outpatient DANIA RICARDO [facility] [id number] [facility] 2021-09-27 09:30:00 2021-09-27 09:30:00 Outpatient JORGE LUIS RICARDOIG [facility] [id number] [facility] 2021-09-27 09:30:00 2021-09-27 09:30:00 Outpatient R DANIA PENNINGTON [facility] [id number] [facility] 2021-09-26 10:45:00 2021-09-26 10:45:00 Outpatient R CRICKET TAYLOR [facility] [id number] [facility] 2021-09-26 10:45:00 2021-09-26 10:45:00 Outpatient R CRICKET TAYLOR [facility] [id number] [facility] 2021-09-26 00:00:00 2021-09-26 00:00:00 Patient Secure Vijay Caraballo [facility] 1.2.840.114 350.1.13.10 4.2.7.2.686 [id number] [facility] 2021-09-26 00:00:00 2021-09-26 00:00:00 Patient Secure Vijay Caraballo [facility] 1.2.840.114 350.1.13.10 4.2.7.2.686 [id number] [facility] 2021-09-25 10:20:00 2021-09-25 11:10:42 Urgent Care Flaco Boyd Amanda [facility] 1.2.840.114 350.1.13.10 4.2.7.2.686 [id number] [facility] 2021-09-25 10:20:00 2021-09-25 11:10:42 Outpatient FLACO KEE [facility] [id number] [facility] 2021-09-25 10:20:00 2021-09-25 10:20:00 Outpatient R FLACO BOYD [facility] [id number] [facility] 2021-09-25 10:00:00 2021-09-25 10:00:00 Outpatient R PRASANNA VARGAS [facility] [id number] [facility] 2021-09-25 00:00:00 2021-09-25 00:00:00 [facility] 1.2840.114 350.1.13.10 4.2.7.2.686 [id number] [facility] 2021-09-25 00:00:00 2021-09-25 00:00:00 Patient Secure Mslaila AvrgasPrasanna Jm [facility] 1.2840.114 350.1.13.10 4.2.7.2.686 [id number] [facility] 2021-09-25 00:00:00 2021-09-25 00:00:00 Telephone Cricket Taylor [facility] 1.20.114 350.1.13.10 4.2.7.2.686 [id number] [facility] 2021-09-25 00:00:00 2021-09-25 00:00:00 Telephone Celina Mixon [facility] 1.2840.114 350.1.13.10 4.2.7.2.686 [id number] [facility] 2021-09-15 00:00:00 2021-09-15 00:00:00 Patient Secure Kendal Zamudio [facility] 1.284.114 350.1.13.10 4.2.7.2.686 [id number] 044 [id number] [facility] 2021-09-15 00:00:00 2021-09-15 00:00:00 Patient Secure Msg Kendal Zamudio [facility] 1.2.114 350.1.13.10 4.2.7.2.686 [id number] 044 [id number] [facility] 2021-09-15 00:00:00 2021-09-15 00:00:00 Patient Secure Msg Kendal Zamudio [facility] TO[facility] 1.2.114 350.1.13.10 4.2.7.2.686 [id number] 044 [id number] [facility] 2021-09-14 00:00:00 2021-09-14 00:00:00 Patient Secure Msg Vijay Martinez [facility] TOÑO?[facility] 1.114 350.1.13.10 4.2.7.2.686 [id number] 044 [id number] [facility] 2021-09-14 00:00:00 2021-09-14 00:00:00 Patient Secure Msg Doctor Unassigned, [place] [facility] 1.114 350.1.13.10 4.2.7.2.686 [id number] [facility] 2021-09-12 10:30:00 2021-09-12 10:30:00 Outpatient CELINA STONE [facility] [id number] [facility] 2021-09-12 10:30:00 2021-09-12 10:30:00 Outpatient CELINA STONE [facility] [id number] [facility] 2021-09-12 00:00:00 2021-09-12 00:00:00 Patient Secure Msg Taj Dsouza [facility] 1.114 350.1.13.10 4.2.7.2.686 [id number] [facility] 2021-09-12 00:00:00 2021-09-12 00:00:00 Orders Only Doctor Unassigned, [place] [facility] 1.2.840.114 350.1.13.10 4.2.7.2.686 [id number] [facility] 2021-09-12 00:00:00 2021-09-12 00:00:00 Patient Secure Msg Juan [facility] TOÑO?[facility] 1.2840.114 350.1.13.10 4.2.7.2.686 [id number] 044 [id number] [facility] 2021-09-05 00:00:00 2021-09-05 00:00:00 Patient Secure [facility]sg [facility] 1.2840.114 350.1.13.10 4.2.7.2.686 [id number] 044 [id number] [facility] 2021-09-05 00:00:00 2021-09-05 00:00:00 Patient Secure Msg Doctor Unassigned, [place] [facility] 1.2.840.114 350.1.13.10 4.2.7.2.686 [id number] [facility] 2021-09-05 00:00:00 2021-09-05 00:00:00 Patient Secure Msg Doctor Unassigned, [place] [facility] 1.2840.114 350.1.13.10 4.2.7.2.686 [id number] [facility] 2021-09-04 00:00:00 2021-09-04 00:00:00 Patient Secure Msg [facility] 1.2840.114 350.1.13.10 4.2.7.2.686 [id number] 044 [id number] [facility] 2021-08-28 00:00:00 2021-08-28 00:00:00 Patient Secure Msg Harsh Charles [facility] 1.20.114 350.1.13.10 4.2.7.2.686 [id number] [facility] 2021-08-25 00:00:00 2021-08-25 00:00:00 Telephone Dania Pennington [facility] TOÑO?[facility] 1.20.114 350.1.13.10 4.2.7.2.686 [id number] [facility] 2021-08-25 00:00:00 2021-08-25 00:00:00 Patient Secure Msg Vijay Martinez [facility] TO[facility] 1.20.114 350.1.13.10 4.2.7.2.686 [id number] [id number] [facility] 2021-08-24 00:00:00 2021-08-24 00:00:00 Telephone [facility]ij[facility]SA [facility] 1.2840.114 350.1.13.10 4.2.7.2.686 [id number] 044 [id number] [facility] 2021-08-24 00:00:00 2021-08-24 00:00:00 Patient Secure Msg Vijay Martinez [facility]?TESSA [facility] 1.2840.114 350.1.13.10 4.2.7.2.686 [id number] [facility] 2021-08-23 00:00:00 2021-08-23 00:00:00 Patient Secure Msg Vijay Martinez [facility] 1.2840.114 350.1.13.10 4.2.7.2.686 [id number] 044 [id number] [facility] 2021-08-23 00:00:00 2021-08-23 00:00:00 Telephone Vijay Martinez [facility] TOÑO?[facility] OFFICE BUILDING 1.84.114 350.1.13.10 4.2.7.2.686 [id number] 044 [id number] [facility] 2021-08-22 00:00:00 2021-08-22 00:00:00 Telephone Vijay Martinez [facility] TOÑO?[facility] OFF[facility] BUILD[facility] 1.84.114 350.1.13.10 4.2.7.2.686 [id number] 044 [id number] [facility] 2021-08-22 00:00:00 2021-08-22 00:00:00 Patient Secure Msg Hallie Wilkinson [facility] TOÑO?[facility] OFFICE BUILDING 1.840.114 350.1.13.10 4.2.7.2.686 [id number] [id number] [facility] 2021-08-18 00:00:00 2021-08-18 00:00:00 Telephone Vijay Martinez [facility] TOÑO?TESSA [facility] BU[facility] 1.84.114 350.1.13.10 4.2.7.2.686 [id number] [id number] [facility] 2021-08-17 09:00:00 2021-08-17 09:00:00 Outpatient CELINA STONE [facility] [id number] [facility] 2021-08-17 09:00:00 2021-08-17 09:00:00 Outpatient CELINA STONE [facility] [id number] [facility] 2021-08-17 00:00:00 2021-08-17 00:00:00 Patient Secure Msg Prasanna Vargas [facility] NAL BUILDING 1.840.114 350.1.13.10 4.2.7.2.686 [id number] [facility] 2021-08-17 00:00:00 2021-08-17 00:00:00 Patient Secure Msg Vijay Martinez [facility] 1.2840.114 350.1.13.10 4.2.7.2.686 [id number] 044 [id number] [facility] 2021-08-17 00:00:00 2021-08-17 00:00:00 Patient Secure Msg Vijay Martinez [facility] 1.84.114 350.1.13.10 4.2.7.2.686 [id number] 044 [id number] [facility] 2021-08-16 00:00:00 2021-08-16 00:00:00 Patient Secure Msg Vijay Martinez [facility] 1.84.114 350.1.13.10 4.2.7.2.686 [id number] 044 [id number] [facility] 2021-08-16 00:00:00 2021-08-16 00:00:00 Patient Secure Msg Doctor Unassigned, [place] [facility] TOÑO?[facility] 1.84.114 350.1.13.10 4.2.7.2.686 [id number] 044 [id number] [facility] 2021-08-16 00:00:00 2021-08-16 00:00:00 Patient Secure Msg Vijay Martinez [facility] 1.284.114 350.1.13.10 4.2.7.2.686 [id number] 044 [id number] [facility] 2021-08-16 00:00:00 2021-08-16 00:00:00 Patient Secure Msg Vijay Martinez [facility] 1.2.840.114 350.1.13.10 4.2.7.2.686 [id number] 044 [id number] [facility] 2021-08-15 15:30:00 2021-08-15 16:16:42 Office Visit Adán Kim [facility] 1.2.840.114 350.1.13.10 4.2.7.2.686 [id number] [facility] 2021-08-15 15:30:00 2021-08-15 16:16:42 Outpatient R ADÁN KIM [facility] [id number] [facility] 2021-08-15 15:30:00 2021-08-15 15:30:00 Outpatient ADÁN DIEGO [facility] [id number] [facility] 2021-08-15 15:30:00 2021-08-15 15:30:00 Outpatient R ADÁN KIM [facility] [id number] [facility] 2021-08-15 15:30:00 2021-08-15 15:30:00 Outpatient ADÁN DIEGO [facility] [id number] [facility] 2021-08-15 09:27:00 2021-08-15 12:26:00 Emergency MAURA DALE [facility] [id number] [facility] 2021-08-15 09:27:00 2021-08-15 12:26:00 Emergency Maura Samayoa [facility] 1..840.114 350.1.13.10 4.2.7.2.686 [id number] [facility] 2021-08-15 09:27:00 2021-08-15 12:26:00 Emergency MAURA DALE [facility] [id number] [facility] 2021-08-15 00:00:00 2021-08-15 00:00:00 Patient Secure Msg Doctor Unassigned, [place] [facility] 1.84.114 350.1.13.10 4.2.7.2.686 [id number] [facility] 2021-08-14 13:25:00 2021-08-14 23:59:00 Outpatient R VIJAY MARTINEZ [facility] [id number] [facility] 2021-08-14 13:25:00 2021-08-14 23:59:00 Outpatient R VIJAY MARTINEZ [facility] [id number] [facility] 2021-08-14 13:25:00 2021-08-14 13:25:00 Outpatient R VIJAY MARTINEZ [facility] [id number] [facility] 2021-08-14 12:19:07 2021-08-14 13:24:00 Outpatient R VIJAY MARTINEZ [facility] [id number] [facility] 2021-08-14 12:19:07 2021-08-14 13:24:00 Outpatient R VIJAY MARTINEZ [facility] [id number] [facility] 2021-08-14 12:30:00 2021-08-14 13:01:24 Director Acute Visit Lab, Filippo Martinez [facility] 1.840.114 350.1.13.10 4.2.7.2.686 [id number] [facility] 2021-08-14 12:30:00 2021-08-14 12:45:00 Director Acute Visit Lab, Filippo Martinez [facility] 1.840.114 350.1.13.10 4.2.7.2.686 [id number] [facility] 2021-08-14 11:30:00 2021-08-14 12:31:12 Office Visit Juan [facility] TOÑO?[facility] 1.84114 350.1.13.10 4.2.7.2.686 [id number] [facility] 2021-08-14 11:30:00 2021-08-14 12:31:12 Outpatient R VIJAY MARTINEZ [facility] [id number] [facility] 2021-08-14 00:00:00 2021-08-14 00:00:00 Patient Secure Msg Richelle MartinezCount includes the [facility] TOÑO?TES[facility] OFF[facility] BUILDING 1.84114 350.1.13.10 4.2.7.2.686 [id number] 044 [id number] [facility] 2021-08-14 00:00:00 2021-08-14 00:00:00 Patient Secure Msg Richelle MartinezCount includes the [facility] TOÑO?[facility] BUILD[facility] 1.84.114 350.1.13.10 4.2.7.2.686 [id number] [id number] [facility] 2021-08-09 14:45:00 2021-08-09 14:45:00 Outpatient R ADÁN KIM [facility] [id number] [facility] 2021-08-09 00:00:00 2021-08-09 00:00:00 Telephone Vijay Martinez [facility] TOÑO?[facility] BUILDING 1.84.114 350.1.13.10 4.2.7.2.686 [id number] [facility] 2021-08-08 11:30:00 2021-08-08 23:59:00 Outpatient R VÍCTORVIJAY Cannon [facility] [id number] [facility] 2021-08-08 11:30:00 2021-08-08 23:59:00 Hospital Encounter Vijay Martinez [facility] TOÑO?[facility] OFF[facility] BUILDING 1.84.114 350.1.13.10 4.2.7.2.686 [id number] [facility] 2021-08-08 11:15:00 2021-08-08 11:15:00 Outpatient R VIJAY MARTINEZ [facility] [id number] [facility] 2021-08-08 11:00:00 2021-08-08 11:00:00 Outpatient R JUAN VIJAY [facility] [id number] [facility] 2021-08-08 00:00:00 2021-08-08 00:00:00 Patient Secure Msg Doctor Unassigned, [place] [facility] 1.840.114 350.1.13.10 4.2.7.2.686 [id number] [facility] 2021-08-07 09:30:00 2021-08-07 10:23:21 Office Visit Vijay Martinez [facility] TOÑO?[facility] OFF[facility] BUILDING 1.840.114 350.1.13.10 4.2.7.2.686 [id number] [facility] 2021-08-07 09:30:00 2021-08-07 10:23:21 Outpatient R VIJAY MARTINEZ [facility] [id number] [facility] 2021-08-07 09:30:00 2021-08-07 09:30:00 Outpatient R VIJAY MARTINEZ [facility] [id number] [facility] 2021-08-07 00:00:00 2021-08-07 00:00:00 Patient Secure Msg Juan Vijay [facility] TOÑO?[facility] OFF[facility] BUILDING 1.840.114 350.1.13.10 4.2.7.2.686 [id number] 044 [id number] [facility] 2021-08-07 00:00:00 2021-08-07 00:00:00 Patient Secure Msg Vijay Martinez [facility] TOÑO?[facility] OFF[facility] BUILD[facility] 1.840.114 350.1.13.10 4.2.7.2.686 [id number] [facility] 2021-08-07 00:00:00 2021-08-07 00:00:00 Patient Secure Celina Zheng [facility] 1.840.114 350.1.13.10 4.2.7.2.686 [id number] [facility] 2021-08-04 10:00:00 2021-08-04 10:00:00 Outpatient R SHADIA PETRA [facility] [id number] [facility] 2021-08-04 00:00:00 2021-08-04 00:00:00 Patient Secure Vijay Caraballo [facility] OFF[facility] BUILDING 1.84.114 350.1.13.10 4.2.7.2.686 [id number] [facility] 2021-08-03 11:00:00 2021-08-03 12:48:43 Office Visit Jayy Diaz [facility] [employer] [facility]. ..840.114 350.1.13.10 4.2.7.2.686 [id number] [facility] 2021-08-03 11:00:00 2021-08-03 12:48:43 Outpatient R JAYY DIAZ [facility] [id number] [facility] 2021-08-03 11:00:00 2021-08-03 11:00:00 Outpatient R JAYY DIAZ [facility] [id number] [facility] 2021-08-03 00:00:00 2021-08-03 00:00:00 Patient Secure Celina Zheng [facility] 1.840.114 350.1.13.10 4.2.7.2.686 [id number] [facility] 2021-08-02 00:00:00 2021-08-02 00:00:00 Telephone Vijay Martinez [facility] TOÑO?[facility] OFFICE BUILDING 1.2.840.114 350.1.13.10 4.2.7.2.686 [id number] [facility] 2021-07-21 08:00:00 2021-07-21 08:52:53 Outpatient DARRION QUIROZ HOWARD [facility] [id number] [facility] 2021-07-17 11:30:00 2021-07-17 11:30:00 Outpatient VIJAY ARAUZ [facility] [id number] [facility] 2021-07-17 00:00:00 2021-07-17 00:00:00 Patient Secure Msg VíctorVijay cannon [facility] TOÑO?[facility] OFF[facility] BUILDING 1.2.840.114 350.1.13.10 4.2.7.2.686 [id number] [facility] 2021-06-19 00:00:00 2021-06-19 00:00:00 Telephone Vijay Martinez [facility] TOÑO?[facility] OFFICE BUILDING 1.2.840.114 350.1.13.10 4.2.7.2.686 [id number] [facility] 2021-06-09 00:00:00 2021-06-09 00:00:00 [facility] BU[facility] 1.2.840.114 350.1.13.10 4.2.7.2.686 [id number] [facility] 2021-06-06 11:15:00 2021-06-06 11:15:00 Outpatient TETO BRANTLEY [facility] [id number] [facility] 2021-06-06 11:15:00 2021-06-06 11:15:00 Outpatient Farzana CARNES [facility] [id number] [facility] 2021-06-02 15:45:00 2021-06-02 15:45:00 Outpatient R CRISTINACLAUDETTE SINGH [facility] [id number] [facility] 2021-05-31 10:00:00 2021-05-31 10:46:31 Outpatient R VÍCTORVIJAY Cannon [facility] [id number] [facility] 2021-05-31 10:00:00 2021-05-31 10:46:31 Office [facility] OFF[facility] BUILD[facility] 1..840.114 350.1.13.10 4.2.7.2.686 [id number] [facility] 2021-05-31 10:00:00 2021-05-31 10:46:31 Outpatient R JUAN VIJAY [facility] [id number] [facility] 2021-05-31 00:00:00 2021-05-31 00:00:00 Orders Only Doctor Unassigned, [place] [facility] 1.840.114 350.1.13.10 4.2.7.2.686 [id number] [facility] 2021-05-26 00:00:00 2021-05-26 00:00:00 Telephone Skylar Groves [facility] BUILD[facility] 1..840.114 350.1.13.10 4.2.7.2.686 [id number] [id number] [facility] 2021-05-26 00:00:00 2021-05-26 00:00:00 Patient Secure Msg Prasanna Vargas [facility] NAL BUILDING 1.2.840.114 350.1.13.10 4.2.7.2.686 [id number] [facility] 2021-05-25 14:00:00 2021-05-25 14:30:00 Telemedici ne Visit Skylar Groves [facility] OFF[facility] BUILDING 1.2.840.114 350.1.13.10 4.2.7.2.686 [id number] [facility] 2021-05-25 14:00:00 2021-05-25 14:00:00 Outpatient R SKYLAR GROVES [facility] [id number] [facility] 2021-05-25 14:00:00 2021-05-25 14:00:00 Outpatient R SKYLAR GROVES [facility] [id number] [facility] 2021-05-25 00:00:00 2021-05-25 00:00:00 Patient Secure Msg Skylar Groves [facility] TOÑO?[facility] OFF[facility] BUILDING 1.2.840.114 350.1.13.10 4.2.7.2.686 [id number] [facility] 2021-05-25 00:00:00 2021-05-25 00:00:00 Patient Secure Msg Skylar Groves [facility] TOÑO?[facility] BUILD[facility] 1.2.840.114 350.1.13.10 4.2.7.2.686 [id number] [id number] [facility] 2021-05-24 00:00:00 2021-05-24 00:00:00 Telephone Rad Serra K.HPilar [facility] BU[facility] 1.2.840.114 350.1.13.10 4.2.7.2.686 [id number] [facility] 2021-05-24 00:00:00 2021-05-24 00:00:00 Patient Secure Msg Delroy Sendzohra K.HPilar [facility] BU[facility] 1.2.840.114 350.1.13.10 4.2.7.2.686 [id number] [id number] [facility] 2021-05-24 00:00:00 2021-05-24 00:00:00 Patient Secure Claudette Hinds [facility] 1.2.840.114 350.1.13.10 4.2.7.2.686 [id number] [facility] 2021-05-23 10:00:00 2021-05-23 10:00:00 Outpatient R [facility] [id number] [facility] 2021-05-23 10:00:00 2021-05-23 10:00:00 Outpatient R [facility] [id number] [facility] 2021-05-23 00:00:00 2021-05-23 00:00:00 Patient Secure [facility]s [facility] [place] [address].2.840.114 350.1.13.10 4.2.7.2.686 [id number] [facility] 2021-05-16 09:00:00 2021-05-16 09:00:00 Outpatient R TETO CARNES [facility] [id number] [facility] 2021-05-12 00:00:00 2021-05-12 00:00:00 Orders Only Doctor Unassigned, [place] [facility] 1.2.840.114 350.1.13.10 4.2.7.2.686 [id number] [facility] 2021-05-10 13:00:00 2021-05-10 13:00:00 Outpatient R CLAUDETTE EVANS [facility] [id number] [facility] 2021-05-10 13:00:00 2021-05-10 13:00:00 Outpatient R CLAUDETTE EVANS [facility] [id number] [facility] 2021-05-09 00:00:00 2021-05-09 00:00:00 Telephone [facility] BU[facility] 1.2.840.114 350.1.13.10 4.2.7.2.686 [id number] [facility] 2021-05-09 00:00:00 2021-05-09 00:00:00 Patient Secure Msg Reena Serrazohra [facility] 1.2.840.114 350.1.13.10 4.2.7.2.686 [id number] [facility] 2021-05-08 16:00:00 2021-05-08 16:00:00 Outpatient JE CRABTREE [facility] [id number] [facility] 2021-05-08 16:00:00 2021-05-08 16:00:00 Outpatient JE CRABTREE [facility] [id number] [facility] 2021-05-08 00:00:00 2021-05-08 00:00:00 Patient Secure g Reena Serrail [facility] 1.2.840.114 350.1.13.10 4.2.7.2.686 [id number] [facility] 2021-05-08 00:00:00 2021-05-08 00:00:00 Patient Secure g Delroy Reenazohra [facility] BUILD[facility] 1.2.840.114 350.1.13.10 4.2.7.2.686 [id number] [facility] 2021-05-04 00:00:00 2021-05-04 00:00:00 Patient Secure Msg Delroy, Sendil [facility] 1.2.840.114 350.1.13.10 4.2.7.2.686 [id number] [id number] [facility] 2021-05-04 00:00:00 2021-05-04 00:00:00 Patient Secure Msg [facility] 1.2.840.114 350.1.13.10 4.2.7.2.686 [id number] [facility] 2021-05-03 11:15:36 2021-05-03 23:59:00 [id number] 2021-05-03 11:15:36 2021-05-03 23:59:00 Hospital Encounter [facility]ith [facility] 1.2.840.114 350.1.13.10 4.2.7.2.686 [id number] [facility] 2021-05-03 00:00:00 2021-05-03 00:00:00 Telephone Claudette Evans [facility] OFF[facility] BUILDING 1.2.840.114 350.1.13.10 4.2.7.2.686 [id number] [facility] 2021-05-02 00:00:00 2021-05-02 00:00:00 Telephone Rad Serra [facility] 1.2.840.114 350.1.13.10 4.2.7.2.686 [id number] [facility] 2021-05-02 00:00:00 2021-05-02 00:00:00 Patient Secure Msg Claudette Evans [facility] BU[facility] 1.2.840.114 350.1.13.10 4.2.7.2.686 [id number] [facility] 2021-05-02 00:00:00 2021-05-02 00:00:00 Telephone Claudette Evans [facility] 1..840.114 350.1.13.10 4.2.7.2.686 [id number] [facility] 2021-05-02 00:00:00 2021-05-02 00:00:00 Patient Secure Msg Rad Serra. [facility] 1..840.114 350.1.13.10 4.2.7.2.686 [id number] [id number] [facility] 2021-05-02 00:00:00 2021-05-02 00:00:00 Patient Secure Msg Claudette Evans [facility] 1..840.114 350.1.13.10 4.2.7.2.686 [id number] [facility] 2021-04-28 00:00:00 2021-04-28 00:00:00 Patient Secure Msg Claudette Evans [facility] 1.840.114 350.1.13.10 4.2.7.2.686 [id number] [facility] 2021-04-27 14:24:00 2021-04-27 15:49:00 Emergency X MAGGIE HAMILTON [facility] [id number] [facility] 2021-04-27 14:24:00 2021-04-27 15:49:00 Emergency Maggie Hamilton [facility] 1.2.840.114 350.1.13.10 4.2.7.2.686 [id number] [facility] 2021-04-27 11:15:00 2021-04-27 11:30:00 Laboratory Only Only, Ang Db Test Unknown, Attending Thony Johnson [facility] 1..840.114 350.1.13.10 4.2.7.2.686 [id number] [facility] 2021-04-27 11:15:00 2021-04-27 11:15:00 Outpatient THONY LUIS [facility] [id number] [facility] 2021-04-27 00:00:00 2021-04-27 00:00:00 Orders Only Doctor Unassigned, [place] [facility] 1.840.114 350.1.13.10 4.2.7.2.686 [id number] [facility] 2021-04-20 15:00:00 2021-04-20 15:00:00 Outpatient EDER RENEE [facility] [id number] [facility] 2021-04-13 00:00:00 2021-04-13 00:00:00 Patient Secure Msg Cristina Briankacey Kassandra [facility] CENTER TOÑO?[facility] BUILD[facility] 1.840.114 350.1.13.10 4.2.7.2.686 [id number] [facility] 2021-04-12 00:00:00 2021-04-12 00:00:00 Telephone Cristina Claudette Cannon [facility] TO[facility] 1.840.114 350.1.13.10 4.2.7.2.686 [id number] [id number] [facility] 2021-03-27 00:00:00 2021-03-27 00:00:00 Telephone Prasanna Vargas [facility] 1.840.114 350.1.13.10 4.2.7.2.686 [id number] [facility] 2021-03-24 00:00:00 2021-03-24 00:00:00 Patient Secure Msg Doctor Unassigned, [place] [facility] 1.840.114 350.1.13.10 4.2.7.2.686 [id number] [facility] 2021-03-23 13:30:00 2021-03-23 13:30:00 Outpatient R PINO HOFF [facility] [id number] [facility] 2021-03-23 13:30:00 2021-03-23 13:30:00 Outpatient R PINO HOFF [facility] [id number] [facility] 2021-03-22 09:20:00 2021-03-22 09:20:00 Outpatient R ADITYA MEEKS STRAHIL [facility] [id number] [facility] 2021-03-22 09:20:00 2021-03-22 09:20:00 Outpatient R ADITYA MEEKS STRAHIL [facility] [id number] [facility] 2021-03-20 00:00:00 2021-03-20 00:00:00 Outpatient CLAUDETTE CEDILLO [facility] [id number] [facility] 2021-03-18 00:00:00 2021-03-18 00:00:00 Case Management Claudette Evans [facility] TOÑO?[facility] BU[facility] 1..840.114 350.1.13.10 4.2.7.2.686 [id number] [facility] 2021-03-16 11:16:07 2021-03-16 11:31:07 Director Acute Visit Lab, Ang - Db Claudette Evans [facility] TOÑO?[facility] 1..840.114 350.1.13.10 4.2.7.2.686 [id number] [facility] 2021-03-16 11:30:00 2021-03-16 11:30:00 Outpatient R CLAUDETTE EVANS [facility] [id number] [facility] 2021-03-16 11:00:00 2021-03-16 11:14:45 Outpatient R CLAUDETTE EVANS [facility] [id number] [facility] 2021-03-16 10:00:58 2021-03-16 11:14:45 Office Visit [facility]KARLOSKassandra [facility] BUILDING 1.2.840.114 350.1.13.10 4.2.7.2.686 [id number] [facility] 2021-03-16 00:00:00 2021-03-16 00:00:00 Patient Secure Msg Claud[facility]?KARLOSKassandra [facility] BU[facility] 1.2.840.114 350.1.13.10 4.2.7.2.686 [id number] [id number] [facility] 2021-03-02 16:15:00 2021-03-02 16:15:00 Outpatient R CLAUDETTE EVANS [facility] [id number] [facility] 2021-02-28 18:30:00 2021-02-28 18:30:00 Outpatient R ILEANA MEDRANO [facility] [id number] [facility] 2021-02-28 00:00:00 2021-02-28 00:00:00 Telephone Claudette Evans [facility] Maurice Lundberg?[facility] Medical Office Building 1.2.840.114 350.1.13.10 4.2.7.2.686 [id number] [facility] 2021-02-27 09:00:00 2021-02-27 09:00:00 Outpatient R STEPHANY AMELIA [facility] [id number] [facility] 2021-02-23 00:00:00 2021-02-23 00:00:00 Telephone Claudette Evans [facility] Lundberg[facility] Medical Office Building 1.2.840.114 350.1.13.10 4.2.7.2.686 [id number] [facility] 2021-02-10 18:12:00 2021-02-10 23:39:00 Emergency Kaycee Méndez [facility] 1.2.840.114 350.1.13.10 4.2.7.2.686 [id number] [facility] 2021-02-10 00:00:00 2021-02-10 00:00:00 Patient Secure Msg Branden Evansful A [facility] TOÑO?[facility] 1.2.840.114 350.1.13.10 4.2.7.2.686 [id number] 044 [id number] [facility] 2021-02-10 00:00:00 2021-02-10 00:00:00 Patient Secure Msg Branden [facility]ful [facility] 1.2840.114 350.1.13.10 4.2.7.2.686 [id number] [facility] 2021-02-10 00:00:00 2021-02-10 00:00:00 Patient Secure Msg Branden Evansful [facility] 1.2.840.114 350.1.13.10 4.2.7.2.686 [id number] [facility] 2021-02-10 00:00:00 2021-02-10 00:00:00 Patient Secure Msg Brian Evansdiful [facility] 1.2.840.114 350.1.13.10 4.2.7.2.686 [id number] [facility] 2021-02-09 13:40:00 2021-02-09 23:59:00 Hospital Encounter Claudette Evans [facility] Lundberg?[facility] Medical Office Building 1.84114 350.1.13.10 4.2.7.2.686 [id number] [facility] 2021-02-09 13:49:05 2021-02-09 14:04:05 Director Acute Visit Lab, Ang - Db Claudette Evans [facility] Lundberg?[facility] Medical Office Building 1.114 350.1.13.10 4.2.7.2.686 [id number] [facility] 2021-02-09 12:23:13 2021-02-09 13:47:12 Office Visit Claudette Evans [facility] Maurice Lundberg?[facility] Medical Office Building 1.84114 350.1.13.10 4.2.7.2.686 [id number] [facility] 2021-02-09 13:00:00 2021-02-09 13:00:00 Outpatient R CLAUDETTE EVANS [facility] [id number] [facility] 2021-02-09 00:00:00 2021-02-09 00:00:00 Patient Secure Msg Doctor Unassigned, [place] [facility] 1..114 350.1.13.10 4.2.7.2.686 [id number] [facility] 2021-02-08 10:20:00 2021-02-08 10:20:00 Outpatient R ADITYA MEEKS STRAHIL [facility] [id number] [facility] 2021-02-07 00:00:00 2021-02-07 00:00:00 Patient Secure Msg Claudette Evans [facility] BU[facility] 1.84.114 350.1.13.10 4.2.7.2.686 [id number] [facility] 2021-02-02 10:30:00 2021-02-02 10:30:00 Outpatient SKYLAR CEBALLOS [facility] [id number] [facility] 2021-02-02 00:00:00 2021-02-02 00:00:00 Telephone Claudette Evans [facility] Lundberg?[facility] Medical Office Building 1..840.114 350.1.13.10 4.2.7.2.686 [id number] [facility] 2021-02-01 08:30:00 2021-02-01 08:30:00 Outpatient SKYLAR CEBALLOS [facility] [id number] [facility] 2021-01-31 18:44:04 2021-01-31 19:41:26 [facility] Medical Office Building 1.840.114 350.1.13.10 4.2.7.2.686 [id number] [facility] 2021-01-31 19:00:00 2021-01-31 19:00:00 Outpatient R FLACO BOYD [facility] [id number] [facility] 2021-01-31 00:00:00 2021-01-31 00:00:00 Telephone Claudette Evans [facility] Fofanae?[facility] Medical Office Building 1..840.114 350.1.13.10 4.2.7.2.686 [id number] [facility] 2021-01-31 00:00:00 2021-01-31 00:00:00 Patient Secure Msg Claudette Evans [facility] 1..840.114 350.1.13.10 4.2.7.2.686 [id number] [id number] [facility] 2021-01-30 00:00:00 2021-01-30 00:00:00 Telephone Rad Serra [facility] nal Building 1.840.114 350.1.13.10 4.2.7.2.686 [id number] [facility] 2021-01-30 00:00:00 2021-01-30 00:00:00 Patient Secure Msg Claudette Evans A [facility] OFFICE BUILDING ONE 1.840.114 350.1.13.10 4.2.7.2.686 [id number] [facility] 2021-01-26 14:00:00 2021-01-26 14:00:00 Outpatient R RAD SERRA [facility] [id number] [facility] 2021-01-26 00:00:00 2021-01-26 00:00:00 Patient Secure Msg Skylar Groves [facility] TO[facility] 1.840.114 350.1.13.10 4.2.7.2.686 [id number] [facility] 2021-01-25 15:00:00 2021-01-25 15:00:00 Outpatient R [facility] [id number] [facility] 2021-01-21 00:00:00 2021-01-21 00:00:00 Patient Secure Msg Skylar Groves [facility] TOÑO?KARLOSKassandra [facility] OFF[facility] BUILDING 1..840.114 350.1.13.10 4.2.7.2.686 [id number] [facility] 2021-01-20 16:51:22 2021-01-20 17:12:41 Telemedici ne Visit Skylar Groves [facility] Toño?[facility] Medical Office Building 1.840.114 350.1.13.10 4.2.7.2.686 [id number] [facility] 2021-01-20 16:30:00 2021-01-20 16:30:00 Outpatient R SKYLAR GROVES [facility] [id number] [facility] 2021-01-19 10:15:00 2021-01-19 10:15:00 Outpatient R KAYLEY GARCÍA [facility] [id number] [facility] 2021-01-14 00:00:00 2021-01-14 00:00:00 Case Management Kassandra Robledo [facility] 1.114 350.1.13.10 4.2.7.2.686 [id number] [facility] 2021-01-14 00:00:00 2021-01-14 00:00:00 Patient Secure Msg Doctor Unassigned, [place] [facility] 1.114 350.1.13.10 4.2.7.2.686 [id number] [facility] 2021-01-12 16:10:00 2021-01-12 19:45:00 Emergency Hany Matthews [facility] 1..114 350.1.13.10 4.2.7.2.686 [id number] [facility] 2021-01-12 15:20:00 2021-01-12 15:20:00 Outpatient ILEANA CASE [facility] [id number] [facility] 2021-01-12 14:46:57 2021-01-12 15:06:57 Urgent Care Thony Johnson [facility]?Tessa amarjitmoe Medical Office Building 1..114 350.1.13.10 4.2.7.2.686 [id number] [facility] 2020-12-26 15:30:00 2020-12-26 16:13:32 Outpatient R RAD SERRA [facility] [id number] [facility] 2020-12-26 15:30:00 2020-12-26 16:13:32 Office Visit Rad SerraPilar [facility] BUILD[facility] 1.2.840.114 350.1.13.10 4.2.7.2.686 [id number] [facility] 2020-12-26 15:00:32 2020-12-26 16:13:32 Office Visit Rad Serra [facility] Building 1.2.840.114 350.1.13.10 4.2.7.2.686 [id number] [facility] 2020-12-26 15:30:00 2020-12-26 15:30:00 Outpatient R RAD SERRA [facility] [id number] [facility] 2020-11-29 00:00:00 2020-11-29 00:00:00 Patient Secure Msg Rad SerraPilar [facility] BUILD[facility] 1.2.840.114 350.1.13.10 4.2.7.2.686 [id number] [facility] 2020-11-22 11:00:00 2020-11-22 11:00:00 Outpatient R CELINA MIXON [facility] [id number] [facility] 2020-11-10 18:42:46 2020-11-10 19:53:43 Urgent Care Alissa Collins [facility] Office Building One 1.2.840.114 350.1.13.10 4.2.7.2.686 [id number] [id number] 2020-11-10 19:00:00 2020-11-10 19:00:00 Outpatient R [facility] [id number] [facility] 2020-10-31 18:52:00 2020-10-31 22:15:00 Emergency Kaycee Méndez [facility] 1.2.840.114 350.1.13.10 4.2.7.2.686 [id number] 2020-10-31 19:00:00 2020-10-31 19:00:00 Outpatient CARI TUTTLE [facility] [id number] [facility] 2020-10-31 00:00:00 2020-10-31 00:00:00 Orders Only Doctor Unassigned, [place] [facility] 1.2.840.114 350.1.13.10 4.2.7.2.686 [id number] 2020-10-20 14:02:00 2020-10-20 17:13:00 Emergency Kaycee Méndez [facility] 1.2.840.114 350.1.13.10 4.2.7.2.686 [id number] 2020-10-18 00:00:00 2020-10-18 00:00:00 Patient Secure Msg Prasanna Vargas [facility] BUILDING 1.2.840.114 350.1.13.10 4.2.7.2.686 [id number] [facility] 2020-10-14 10:00:00 2020-10-14 23:59:00 Hospital Encounter Prasanna Vargas [facility] 1.2.840.114 350.1.13.10 4.2.7.2.686 [id number] 2020-10-14 13:30:00 2020-10-14 13:30:00 Outpatient CELINA STONE [facility] [id number] [facility] 2020-10-11 00:00:00 2020-10-11 00:00:00 Patient Secure Msg Prasanna Vargas Cam [facility] BUILDING 1.2.840.114 350.1.13.10 4.2.7.2.686 [id number] [facility] 2020-10-11 00:00:00 2020-10-11 00:00:00 Patient Secure Msg Prasanna Vargas [facility] BU[facility] 1.2840.114 350.1.13.10 4.2.7.2.686 [id number] [facility] 2020-10-09 12:00:00 2020-10-09 15:57:00 Emergency KrystleAnna [facility] 1.2840.114 350.1.13.10 4.2.7.2.686 [id number] 2020-10-07 00:00:00 2020-10-07 00:00:00 Patient Secure Msg Prasanna Vargas [facility] BU[facility] 1.2840.114 350.1.13.10 4.2.7.2.686 [id number] [facility] 2020-10-07 00:00:00 2020-10-07 00:00:00 Patient Secure Msg Prasanna Vargas [facility] BU[facility] 1.2840.114 350.1.13.10 4.2.7.2.686 [id number] [facility] 2020-10-07 00:00:00 2020-10-07 00:00:00 Patient Secure Msg Prasanna Vargas [facility] BU[facility] 1.2840.114 350.1.13.10 4.2.7.2.686 [id number] [facility] 2020-10-07 00:00:00 2020-10-07 00:00:00 Patient Secure Msg Prasanna Vargas [facility] BU[facility] 1.2840.114 350.1.13.10 4.2.7.2.686 [id number] [facility] 2020-10-07 00:00:00 2020-10-07 00:00:00 Patient Secure Msg Prasanna Vargas [facility] BU[facility] 1.2.840.114 350.1.13.10 4.2.7.2.686 [id number] [facility] 2020-10-07 00:00:00 2020-10-07 00:00:00 Patient Secure Msg Prasanna Vargas [facility] 1.2.840.114 350.1.13.10 4.2.7.2.686 [id number] [facility] 2020-10-07 00:00:00 2020-10-07 00:00:00 Patient Secure Msg Prasanna Vargas [facility] BU[facility] 1.2.840.114 350.1.13.10 4.2.7.2.686 [id number] [facility] 2020-10-06 08:53:00 2020-10-06 09:46:44 Office [facility] 1.2.840.114 350.1.13.10 4.2.7.2.686 [id number] 2020-10-06 09:30:00 2020-10-06 09:30:00 Outpatient R PRASANNA VARGAS [facility] [id number] [facility] 2020-10-04 14:00:00 2020-10-04 14:00:00 Outpatient CELINA STONE [facility] [id number] [facility] 2020-09-30 10:30:00 2020-09-30 10:30:00 Outpatient CELINA STONE [facility] [id number] [facility] 2020-09-29 13:45:00 2020-09-29 13:45:00 Outpatient R PREET SHAY [facility] [id number] [facility] 2020-09-06 15:30:00 2020-09-06 15:30:00 Outpatient PRASANNA LOOMIS [facility] [id number] [facility] 2020-09-05 00:00:00 2020-09-05 00:00:00 Patient Secure Prasanna Kang [facility] BUILDING 1.2.840.114 350.1.13.10 4.2.7.2.686 [id number] [facility] 2020-09-02 15:40:00 2020-09-02 15:40:00 Outpatient DRARION QUIROZ HOWARD [facility] [id number] [facility] 2020-08-31 10:30:00 2020-08-31 10:30:00 Outpatient RAD MATAMOROS [facility] [id number] [facility] 2020-08-31 00:00:00 2020-08-31 00:00:00 [facility] 1.[facility].840.114 350.1.13.10 4.2.7.2.686 [id number] [facility] 2020-08-18 09:30:00 2020-08-18 09:30:00 Outpatient PRASANNA LOOMIS [facility] [id number] [facility] 2020-08-11 13:30:00 2020-08-11 13:30:00 Outpatient Farzana VARGASPRASANNA [facility] [id number] [facility] 2020-08-04 14:00:00 2020-08-04 14:00:00 Outpatient EDER RENEE [facility] [id number] [facility] 2020-07-28 10:30:00 2020-07-28 10:30:00 Outpatient REENA MATAMOROSIL [facility] [id number] [facility] 2020-06-30 16:15:00 2020-06-30 16:15:00 Outpatient Farzana CLAUDETTE EVANS [facility] [id number] [facility] 2020-06-17 15:00:00 2020-06-17 15:00:00 Outpatient DARRION QUIROZ [facility] [id number] [facility] 2020-06-16 15:30:00 2020-06-16 15:30:00 Outpatient R RAD SERRA [facility] [id number] [facility] 2020-06-09 12:30:00 2020-06-09 12:30:00 Outpatient NI YUNG [facility] [id number] [facility] 2020-06-08 08:00:00 2020-06-08 08:00:00 Outpatient NI YUNG [facility] [id number] [facility] 2020-06-02 09:00:00 2020-06-02 09:00:00 Outpatient RAD MATAMOROS [facility] [id number] [facility] 2020-05-28 10:00:00 2020-05-28 10:00:00 Outpatient Farzana NATASHA CARI [facility] [id number] [facility] 2020-05-26 00:00:00 2020-05-26 00:00:00 Patient Secure [place], Claudette [facility] ONE 1.2.840.114 350.1.13.10 4.2.7.2.686 [id number] [facility] 2020-05-24 10:00:00 2020-05-24 10:00:00 Outpatient NI YUNG [facility] [id number] [facility] 2020-05-24 00:00:00 2020-05-24 00:00:00 Patient Secure Msg Doctor Unassigned, [place] [facility] BUILD[facility] 1.2.840.114 350.1.13.10 4.2.7.2.686 [id number] [facility] 2020-05-19 16:30:00 2020-05-19 16:30:00 Outpatient R OSITO HITCHCOCK [facility] [id number] [facility] 2020-05-17 13:00:00 2020-05-17 13:00:00 Outpatient DARRION QUIROZ HOW[facility] [id number] [facility] 2020-05-16 16:00:00 2020-05-16 16:00:00 Outpatient R CLAUDETTE EVANS [facility] [id number] [facility] 2020-05-09 00:00:00 2020-05-09 00:00:00 Patient Secure g Brian Evanskacey A [facility] OFFICE BUILDING ONE 1.2.840.114 350.1.13.10 4.2.7.2.686 [id number] [facility] 2020-05-08 10:24:00 2020-05-08 13:03:00 Emergency X ALEXISRUOLAMIDE [facility] E[facility] [id number] [facility] 2020-05-03 15:00:00 2020-05-03 15:00:00 Outpatient R CLAUDETTE EVANS [facility] [id number] [facility] 2020-04-30 11:14:00 2020-05-01 15:50:00 Outpatient X RODRIGUEZ HOFF [facility] [place] [id number] [facility] 2020-04-30 10:20:00 2020-04-30 10:20:00 Outpatient ROSALES KRISHNA [facility] [id number] [facility] 2020-04-30 10:15:00 2020-04-30 10:15:00 Outpatient ROSALES KRISHNA [facility] [id number] [facility] 2020-04-29 00:00:00 2020-04-29 00:00:00 Patient Secure Msg Heaven Hitchcocksir [facility] 1..114 350.1.13.10 4.2.7.2.686 [id number] [facility] 2020-04-28 14:00:00 2020-04-28 14:00:00 Outpatient R OSITO HITCHCOCK [facility] [id number] [facility] 2020-04-25 16:15:00 2020-04-25 16:15:00 Outpatient R CLAUDETTE EVANS [facility] [id number] [facility] 2020-04-22 00:00:00 2020-04-22 00:00:00 Patient Secure Msg Eder Fletcher [facility] 1.840.114 350.1.13.10 4.2.7.2.686 [id number] [facility] 2020-04-18 10:00:00 2020-04-18 10:00:00 Outpatient R JACK OSITO [facility] [id number] [facility] 2020-04-15 10:30:00 2020-04-15 10:30:00 Outpatient R RAD SERRA [facility] [id number] [facility] 2020-04-12 13:38:00 2020-04-13 16:25:00 [facility] [id number] [facility] 2020-03-17 16:15:00 2020-03-17 16:15:00 Outpatient R TETO CARNES [facility] [id number] [facility] 2020-03-04 00:00:00 2020-03-04 00:00:00 Refill Heaven Hitchcocksir [facility] 1.84.114 350.1.13.10 4.2.7.2.686 [id number] 2020-02-25 16:00:00 2020-02-25 16:00:00 Outpatient R OSITO HITCHCOCK [facility] [id number] [facility] 2020 14:00:00 2020 14:00:00 Outpatient R TETO CARNES [facility] [id number] [facility] 2020-02-08 10:30:00 2020-02-08 10:30:00 Outpatient R PRASANNA VARGAS [facility] [id number] [facility] 2020-02-05 00:00:00 2020-02-05 00:00:00 Patient Secure Prasanna Kang [facility] 1.2.840.114 350.1.13.10 4.2.7.2.686 [id number] [facility] 2020-02-04 13:30:00 2020-02-04 13:30:00 Outpatient R OSITO HITCHCOCK [facility] [id number] [facility] 2020-01-23 10:15:00 2020-01-23 10:15:00 Outpatient R [facility] [id number] [facility] 2020-01-21 13:00:00 2020-01-21 13:00:00 Outpatient R OSITO HITCHCOCK [facility] [id number] [facility] 2020-01-14 16:00:00 2020-01-14 16:00:00 Outpatient R OSITO HITCHCOCK [facility] [id number] [facility] 2020-01-05 13:45:00 2020-01-05 13:45:00 Outpatient R PRASANNA VARGAS [facility] [id number] [facility] 2020-01-05 00:00:00 2020-01-05 00:00:00 Patient Secure Prasanna Kang [facility] 1.2.840.114 350.1.13.10 4.2.7.2.686 [id number] [facility] 2019-12-03 10:30:00 2019-12-03 10:30:00 Outpatient R CRICKET TAYLOR [facility] [id number] [facility] 2019-11-27 11:00:00 2019-11-27 11:00:00 Outpatient TETO BRANTLEY [facility] [id number] [facility] 2019-11-26 00:00:00 2019-11-26 00:00:00 Patient Secure Msg Doctor Unassigned, [place] [facility] 1..840.114 350.1.13.10 4.2.7.2.686 [id number] [facility] 2019-11-25 08:00:00 2019-11-25 08:00:00 Outpatient TETO BRANTLEY [facility] [id number] [facility] 2019-11-23 00:00:00 2019-11-23 00:00:00 Patient Secure Msg Doctor Unassigned, [place] [facility] 1..840.114 350.1.13.10 4.2.7.2.686 [id number] [facility] 2019-11-18 10:00:00 2019-11-18 10:00:00 Outpatient TETO BRANTLEY [facility] [id number] [facility] 2019-11-17 00:00:00 2019-11-17 00:00:00 Patient Secure Msg Doctor Unassigned, [place] [facility] 1..840.114 350.1.13.10 4.2.7.2.686 [id number] [facility] 2019-11-13 00:00:00 2019-11-13 00:00:00 Patient Secure Msg Prasanna Vargas [facility] 1..840.114 350.1.13.10 4.2.7.2.686 [id number] [facility] 2019-09-02 11:00:00 2019-09-02 11:00:00 Outpatient R CRICKET TAYLOR [facility] [id number] [facility] 2019-08-14 10:15:00 2019-08-14 10:15:00 Outpatient R TETO CARNES [facility] [id number] [facility] 2019-08-13 11:00:00 2019-08-13 11:00:00 Outpatient R CRICKET TAYLOR [facility] [id number] [facility] 2019-08-12 09:00:00 2019-08-12 09:00:00 Outpatient R [facility] [id number] [facility] 2019-07-20 16:06:00 2019-07-20 16:06:00 Outpatient PRASANNA HERRERA [facility] [id number] [facility] 2019-07-20 08:15:00 2019-07-20 08:15:00 Outpatient R CRICKET TAYLOR [facility] [id number] [facility] 2019-07-13 08:00:00 2019-07-13 08:00:00 Outpatient R CRICKET TAYLOR [facility] [id number] [facility] 2019-07-12 13:39:00 2019-07-12 13:39:00 Outpatient PRASANNA HERRERA [facility] [id number] [facility] 2019-07-06 13:00:00 2019-07-06 13:00:00 Outpatient R CRICKET TAYLOR [facility] [id number] [facility] 2019-06-13 10:40:46 2019-06-13 12:35:00 Emergency X HÉCTORSAHRASARAHI [facility] E[facility] [id number] [facility] 2019-05-13 23:07:00 2019-05-14 09:15:00 Outpatient P PRASANNA VARGAS [facility] [id number] [facility] Results Test Description Test Time [...] are noted in the suprapubic soft tissues. [facility] 15:10:38* Test Item Value Reference Range Interpretation Comme nts LIPASE (test code = 9087623305) 52 U/L 0-220 Lab Interpretation (test cod e = 93458-0) Normal [facility]bc with [id number] 14:58:19* Test Item Value Reference Range Interpretation [...] 32.7 g/dL 31.6-35.1 RDW-SD (test code = 32773-0) 44.6 fL 39.0-49.9 RDW-CV (test code = 788-0) 13.5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 code = 9900187571) 9 mg/dL 7-23 Slight hemolysis GLUCOSE (test code = 6671979921) 94 mg/dL 70-110 CREATININE (test code = 2160-0) 0.70 mg/dL 0.50-1.04 TOTAL BILI (test code = 8756882696) 1.0 mg/dL 0.1-1.1 CALCIUM (test code = 0351153450) 9.3 mg/dL 8.6-10.6 T PROTEIN (test code = 1493045637) 8.4 g/dL 6.3-8.2 H ALBUMIN (test code = 1323560414) 5.0 g/dL 3.5-5.0 ALK PHOS (test code = 7604144541) 79 U/L 34-122 Slight hemolysis ALTv (test code = 1742-6) 74 U/L 5-35 H AST(SGOT) (test code = 2456505577) 57 U/L 13-40 H Slight hemolysis eGFR (test code = 23489-6) 120.2 mL/min/1.73m2 CKD-EPI eGFR (2020). Assuming creatinine has been stable day-to-day for at least three months, the eGFR indicates Category G1 (>= 90 mL/min/1.73 m2) Lab Interpretation (test code = 33505-9) Abnormal [facility] WITH [id number] 15:35:41* Test Item Value Reference Range Interpretation [...] 34.3 g/dL 31.6-35.1 RDW-SD (test code = 63211-0) 41.3 fL 39.0-49.9 RDW-CV (test code = 788-0) 13.2 % 12.0-15.5 PLT (test code = 777-3) 329 166-358 MPV (test code = 57129-6) 9.9 fL 9.5-12.9 NRBC/100 WBC (test code = 2191853836) 0.0 0.0-10.0 NRBC x10^3 (test code = 3744061162) See_Comment [Automated [employer]] The system which generated this result transmitted reference range: 10*3/?L. The reference range was not used to interpret this result as normal/abnormal. GRAN MAT (NEUT) % (test code = 770-8) 66.5 % IMM GRAN % (test code = 8308179278) 0.30 % LYMPH % (test code = 736-9) 26.8 % MONO % (test code = 5905-5) 3.5 % EOS % (test code = 713-8) 2.3 % BASO % (test code = 706-2) 0.6 % GRAN MAT x10^3(ANC) (test code = 5262144690) 5.71 10*3/uL 1.88-7.09 IMM GRAN x10^3 (test code = 1996866486) 0.03 10*3/uL 0.00-0.06 LYMPH x10^3 (test code = 731-0) 2.30 10*3/uL 1.32-3.29 MONO x10^3 (test code = 742-7) 0.30 10*3/uL 0.33-0.92 L EOS x10^3 (test code = 711-2) 0.20 10*3/uL 0.03-0.39 BASO x10^3 (test code = 704-7) 0.05 10*3/uL 0.01-0.07 Lab Interpretation (test code = 22727-2) Abnormal [facility] WITH [id number] 15:35:41* Test Item Value Reference Range Interpretation [...] 34.3 g/dL 31.6-35.1 RDW-SD (test code = 41659-9) 41.3 fL 39.0-49.9 RDW-CV (test code = 788-0) 13.2 % 12.0-15.5 PLT (test code = 777-3) 329 166-358 MPV (test code = 72869-1) 9.9 fL 9.5-12.9 NRBC/100 WBC (test code = 5828005008) 0.0 0.0-10.0 NRBC x10^3 (test code = 7288912814) See_Comment [Automated messa ge] The system which generated this result transmitted reference range: 10*3/?L. The reference range was not used to interpret this result as normal/abnormal. GRAN MAT (NEUT) % (test code = 770-8) 66.5 % IMM GRAN % (test code = 9025239121) 0.30 % LYMPH % (test code = 736-9) 26.8 % MONO % (test code = 5905-5) 3.5 % EOS % (test code = 713-8) 2.3 % BASO % (test code = 706-2) 0.6 % GRAN MAT x10^3(ANC) (test code = 7714933885) 5.71 10*3/uL 1.88-7.09 IMM GRAN x10^3 (test code = 5973891379) 0.03 10*3/uL 0.00-0.06 LYMPH x10^3 (test code = 731-0) 2.30 10*3/uL 1.32-3.29 MONO x10^3 (test code = 742-7) 0.30 10*3/uL 0.33-0.92 L EOS x10^3 (test code = 711-2) 0.20 10*3/uL 0.03-0.39 BASO x10^3 (test code = 704-7) 0.05 10*3/uL 0.01-0.07 Lab Interpretation (test code = 76783-0) [facility][id number][facility]-19 17:55:27* Test Item Value Reference Range Interpretation Comme nts NA (test code = 0636073600) 138 mmol/L 135-145 K (test code = 3237707153) 3.8 mmol/L 3.5-5.0 CL (test code = 7665661220) 107 mmol/L 98-108 CO2 TOTAL (test code = 1477577134) 21 mmol/L 23-31 L AGAP (test code = 6004279253) 10 2-16 BUN (test code = 0805567107) 8 mg/dL 7-23 GLUCOSE (test code = 4353950725) 89 mg/dL 70-110 CREATININE (test code = 2222693918) 0.69 mg/dL 0.50-1.04 TOTAL BILI (test code = 3617093283) 0.7 mg/dL 0.1-1.1 CALCIUM (test code = 9809190018) 8.3 mg/dL 8.6-10.6 L T PROTEIN (test code = 3415305735) 7.3 g/dL 6.3-8.2 ALBUMIN (test code = 1624402145) 4.1 g/dL 3.5-5.0 ALK PHOS (test code = 3151207110) 107 U/L 34-122 ALTv (test code = 1742-6) 75 U/L 5-35 H AST(SGOT) (test code = 9888292374) 42 U/L 13-40 H eGFR (test code = 27196-5) 121.4 mL/min/1.73m2 CKD-EPI eGFR (2020). Assuming creatinine has been stable day-to-day for at least three months, the eGFR indicates Category G1 (>= 90 mL/min/1.73 m2) Lab Interpretation (test code = 44943-8) [facility]* Test Item Value Reference Range Interpretation Comme nts LIPASE (test code = 0741900558) 40 U/L 0-220 Lab Interpretation (test cod e = 11278-7) [facility] [id number] 16:27:28EXAM: CT ABDOMEN PELVIS W CONTRAST HISTORY: [...] hypodensity isseen within the right gluteal soft tissue.[facility] CBC WITH [id number] 16:14:18* Test Item Value Reference Range Interpretation Comme nts WBC (test code = 6690-2) 6.32 See_Comment [Automated [employer]] The system which generated this result transmitted reference range: 4.30 - 11.10 10*3/?L. The reference range was not used to interpret this result as normal/abnormal. RBC (test code = 789-8) 4.61 See_Comment [Automated [employer]] The system which generated this result transmitted [...] 34.1 g/dL 31.6-35.1 RDW-SD (test code = 98570-1) 42.0 fL 39.0-49.9 RDW-CV (test code = 788-0) 13.0 % 12.0-15.5 PLT (test code = 777-3) 369 See_Comment H [Automated messa ge] The system which generated this result transmitted reference range: 166 - 358 10*3/?L. The reference range was not used to interpret this result as normal/abnormal. MPV (test code = 33331-5) 9.9 fL 9.5-12.9 NRBC/100 WBC (test code = 3969360927) 0.0 See_Comment [Automated [employer] ssage] The system which generated this result transmitted reference range: 0.0 - 10.0 /100 WBCs. The reference range was not used to interpret this result as normal/abnormal. NRBC x10^3 (test code = 1234164495) See_Comment [Automated messa ge] The system which generated this result transmitted reference range: 10*3/?L. The reference range was not used to interpret this result as normal/abnormal. GRAN MAT (NEUT) % (test code = 770-8) 64.8 % IMM GRAN % (test code = 0462629101) 0.50 % LYMPH % (test code = 736-9) 25.3 % MONO % (test code = 5905-5) 4.1 % EOS % (test code = 713-8) 4.7 % BASO % (test code = 706-2) 0.6 % GRAN MAT x10^3(ANC) (test code = 3426551192) 4.09 10*3/uL 1.88-7.09 IMM GRAN x10^3 (test code = 1160286899) 0.03 10*3/uL 0.00-0.06 LYMPH x10^3 (test code = 731-0) 1.60 10*3/uL 1.32-3.29 MONO x10^3 (test code = 742-7) 0.26 10*3/uL 0.33-0.92 L EOS x10^3 (test code = 711-2) 0.30 10*3/uL 0.03-0.39 BASO x10^3 (test code = 704-7) 0.04 10*3/uL 0.01-0.07 Lab Interpretation (test code = 64289-7) Abnormal [facility] [id number] 15:31:00* Test Item Value Reference Range Interpretation Comme nts POCT PREG (test code = 1605) Negative On board controls acceptable with C Line (test code = 3574) Yes POCT PREG LOT # (test code = 3575) [id number] POCT PREG TEST DATE ( test code = 3576) 2024-07-21 Lab Interpretation (test cod e = 67415-5) Normal [facility] WITH [id number] 04:28:47* Test Item Value Reference Range Interpretation [...] 34.0 g/dL 31.6-35.1 RDW-SD (test code = 70359-5) 40.3 fL 39.0-49.9 RDW-CV (test code = 788-0) 13.1 % 12.0-15.5 PLT (test code = 777-3) 307 See_Comment [Automated messa ge] The system which generated this result transmitted reference range: 166 - 358 10*3/?L. The reference range was not used to interpret this result as normal/abnormal. MPV (test code = 84376-3) 11.0 fL 9.5-12.9 NRBC/100 WBC (test code = 3921349931) 0.0 See_Comment [Automated me ssage] The system which generated this result transmitted reference range: 0.0 - 10.0 /100 WBCs. The reference range was not used to interpret this result as normal/abnormal. NRBC x10^3 (test code = 7397816655) See_Comment [Automated messa ge] The system which generated this result transmitted reference range: 10*3/?L. The reference range was not used to interpret this result as normal/abnormal. GRAN MAT (NEUT) % (test code = 770-8) 52.0 % IMM GRAN % (test code = 2313651232) 0.20 % LYMPH % (test code = 736-9) 38.0 % MONO % (test code = 5905-5) 4.6 % EOS % (test code = 713-8) 4.6 % BASO % (test code = 706-2) 0.6 % GRAN MAT x10^3(ANC) (test code = 1719135397) 2.84 10*3/uL 1.88-7.09 IMM GRAN x10^3 (test code = 2934675457) 0.00-0.06 LYMPH x10^3 (test code = 731-0) 2.07 10*3/uL 1.32-3.29 MONO x10^3 (test code = 742-7) 0.25 10*3/uL 0.33-0.92 L EOS x10^3 (test code = 711-2) 0.25 10*3/uL 0.03-0.39 BASO x10^3 (test code = 704-7) 0.03 10*3/uL 0.01-0.07 Lab Interpretation (test code = 76535-2) [facility] ([id number])2023-01-12 04:12:43* Test Item Value Reference Range Interpretation Comme nts NA (test code = 3601263081) 137 mmol/L 135-145 K (test code = 0719472784) 3.4 mmol/L 3.5-5.0 L CL (test code = 8287777722) 104 mmol/L 98-108 CO2 TOTAL (test code = 8826769688) 24 mmol/L 23-31 AGAP (test code = 0963306072) 9 2-16 BUN (test code = 9492866318) 2 mg/dL 7-23 L GLUCOSE (test code = 8674812880) 92 mg/dL 70-110 CREATININE (test code = 5882248755) 0.80 mg/dL 0.50-1.04 TOTAL BILI (test code = 9213296316) 0.4 mg/dL 0.1-1.1 CALCIUM (test code = 8398094876) 8.4 mg/dL 8.6-10.6 L T PROTEIN (test code = 0180519450) 6.3 g/dL 6.3-8.2 ALBUMIN (test code = 3644816829) 3.7 g/dL 3.5-5.0 ALK PHOS (test code = 4735784050) 87 U/L 34-122 ALTv (test code = 1742-6) 27 U/L 5-35 AST(SGOT) (test code = 9481958781) 33 U/L 13-40 eGFR (test code = 8057762651) 86.0 mL/min/1.73m2 WESLEY (test code = WESLEY) [...] imaging tests). Lab Interpretation (test code = 15851-4) Abnormal [facility]. METABOLIC PANEL ([id number])2023-01-12 04:12:43* Test Item Value Reference Range Interpretation Comme nts NA (test code = 5465814013) 137 mmol/L 135-145 K (test code = 4856987435) 3.4 mmol/L 3.5-5.0 L CL (test code = 7966624897) 104 mmol/L 98-108 CO2 TOTAL (test code = 4986061320) 24 mmol/L 23-31 AGAP (test code = 8568756940) 9 2-16 BUN (test code = 5889350542) 2 mg/dL 7-23 L GLUCOSE (test code = 1835293338) 92 mg/dL 70-110 CREATININE (test code = 0993749432) 0.80 mg/dL 0.50-1.04 TOTAL BILI (test code = 8205507893) 0.4 mg/dL 0.1-1.1 CALCIUM (test code = 7125115544) 8.4 mg/dL 8.6-10.6 L T PROTEIN (test code = 1117770776) 6.3 g/dL 6.3-8.2 ALBUMIN (test code = 9104402938) 3.7 g/dL 3.5-5.0 ALK PHOS (test code = 1171795695) 87 U/L 34-122 ALTv (test code = 1742-6) 27 U/L 5-35 AST(SGOT) (test code = 4015288250) 33 U/L 13-40 eGFR (test code = 1187437975) 86.0 mL/min/1.73m2 WESLEY (test code = WESLEY) [...] imaging tests). Lab Interpretation (test code = 83239-5) [facility] 04:07:04 BETA HCG<2.39Non- female and male patients: <5 mIU/mL01/11/2023 11:07 PM [facility] Gestational Age ?Range (mIU/mL) 1-10 ?Weeks ?72-88933507-94 Weeks ?03311-26176359-10 Weeks ?8566-54832874-72 Weeks ?1531-406379 Biotin has been reported to cause a negative bias, interpret results relative to patient's use of biotin. Gestational Age ?Range (mIU/mL) 1-10 ?Weeks ?55-32861138-07 Weeks ?00249-82306599-59 Weeks ?7035-09725686-67 Weeks?1531-733746 Biotin has been reported to cause a negative bias, interpret results relative to patient's use of biotin. Gestational Age ?Range (mIU/mL) 1-10 ?Weeks ?29-25202286-39 Weeks ?02679-51475239-16 Weeks ?0217-75151005-75 Weeks ?1531-271390 Biotin has been reported to cause a negative bias, interpretresults relative to patient's use of biotin.[facility]23-[facility]-12 04:07:04BETA HCG<2.39Non- female and male patients: <5 mIU/mL01/11/2023 11:07 PM [facility] Gestational Age ?Range (mIU/mL) 1-10 ?Weeks ?03-98337475-59 Weeks ?20893-35762492-34 Weeks ?5260-19699855-87 Weeks ?1531-960797 Biotin has been reported to cause a negative bias, interpret results relative topatient's use of biotin. Gestational Age ?Range (mIU/mL) 1-10 ?Weeks ?98-97627716-97 Weeks ?64950-86315561-64 Weeks ?7510-95078757-04 Weeks?1531-325191 Biotin has been reported to cause a negative bias, interpret results relative to patient's use of biotin. Gestational Age ?Range (mIU/mL) 1-10 ?Weeks ?75-75534515-58 Weeks ?56782-35602885-31 Weeks ?7239-32579653-50 Weeks ?1535-292300 Biotin has been reported to cause a negative bias, interpretresults relative to patient's use of biotin.[facility] 03:22:58* Test Item Value Reference Range Interpretation Comme nts LIPASE (test code = 8747514769) 41 U/L 0-220 Lab Interpretation (test cod e = 96119-0) [facility] 03:22:58* Test Item Value Reference Range Interpretation Comme nts LIPASE (test code = 6351494070) 41 U/L 0-220 Lab Interpretation (test cod e = 02009-7) Normal [facility] [id number] 03:02:00* Test Item Value Reference Range Interpretation Comme nts POCT PREG (test code = 1605) Negative On board controls acceptable with C Line (test code = 3574) Yes POCT PREG LOT # (test code = 3575) [id number] POCT PREG TEST DATE ( test code = 3576) 05/15/2024 Lab Interpretation (test cod e = 63450-2) Normal [facility] [id number] 03:02:00* Test Item Value Reference Range Interpretation Comme nts POCT PREG (test code = 1605) Negative On board controls acceptable with C Line (test code = 3574) Yes POCT PREG LOT # (test code = 3575) [id number] POCT PREG TEST DATE ( test code = 3576) 05/15/2024 Lab Interpretation (test cod e = 49775-9) [facility] [id number] 00:23:34* Test Item Value Reference Range Interpretation Comme nts PREG SERUM (test code = 4458248562) Negative WESLEY (test code = WESLEY) Less than 10 IU/L. ?If low titer or ectopic is suspected, resubmit specimen in 48-72 hours. [facility]. METABOLIC PANEL (14739)2022-07-31 23:58:12* Test Item Value Reference Range Interpretation Comme nts NA (test code = 7211785312) 140 mmol/L 135-145 K (test code = 3598635569) 3.6 mmol/L 3.5-5.0 CL (test code = 8192648169) 106 mmol/L 98-108 CO2 TOTAL (test code = 2058709575) 21 mmol/L 23-31 L AGAP (test code = 1959624602) 13 2-16 BUN (test code = 4611003535) 8 mg/dL 7-23 GLUCOSE (test code = 2546442511) 90 mg/dL 70-110 CREATININE (test code = 7278792334) 0.90 mg/dL 0.50-1.04 TOTAL BILI (test code = 6002331460) 0.5 mg/dL 0.1-1.1 CALCIUM (test code = 7552783889) 9.0 mg/dL 8.6-10.6 T PROTEIN (test code = 9866290297) 7.8 g/dL 6.3-8.2 ALBUMIN (test code = 3050249612) 4.6 g/dL 3.5-5.0 ALK PHOS (test code = 1452837543) 63 U/L 34-122 ALTv (test code = 1742-6) 23 U/L 5-35 AST(SGOT) (test code = 0258826511) 27 U/L 13-40 eGFR (test code = 4000841228) 75.1 mL/min/1.73m2 WESLEY (test code = WESLEY) [...] imaging tests). Lab Interpretation (test code = 05991-6) [facility] 23:57:32* Test Item Value Reference Range Interpretation Comme nts LIPASE (test code = 0761367741) 55 U/L 0-220 Lab Interpretation (test cod e = 66445-0) [facility] [id number] 23:47:31* Test Item Value Reference Range Interpretation Comme nts WBC (test code = 6690-2) 5.64 See_Comment [Automated [employer]] The system which generated this result transmitted reference range: 4.30 - 11.10 10*3/?L. The reference range was not used to interpret this result as normal/abnormal. RBC (test code = 789-8) 4.51 See_Comment [Automated [employer]] The system which generated this result transmitted [...] 32.6 g/dL 31.6-35.1 RDW-SD (test code = 15214-8) 42.5 fL 39.0-49.9 RDW-CV (test code = 788-0) 13.0 % 12.0-15.5 PLT (test code = 777-3) 339 See_Comment [Automated messa ge] The system which generated this result transmitted reference range: 166 - 358 10*3/?L. The reference range was not used to interpret this result as normal/abnormal. MPV (test code = 94002-1) 9.4 fL 9.5-12.9 L NRBC/100 WBC (test code = 6902782946) 0.0 See_Comment [Automated me ssage] The system which generated this result transmitted reference range: 0.0 - 10.0 /100 WBCs. The reference range was not used to interpret this result as normal/abnormal. NRBC x10^3 (test code = 8851760984) See_Comment [Automated messa ge] The system which generated this result transmitted reference range: 10*3/?L. The reference range was not used to interpret this result as normal/abnormal. GRAN MAT (NEUT) % (test code = 770-8) 51.2 % IMM GRAN % (test code = 2868352693) 0.20 % LYMPH % (test code = 736-9) 36.5 % MONO % (test code = 5905-5) 5.7 % EOS % (test code = 713-8) 5.9 % BASO % (test code = 706-2) 0.5 % GRAN MAT x10^3(ANC) (test code = 4808134462) 2.89 10*3/uL 1.88-7.09 IMM GRAN x10^3 (test code = 2157965168) 0.00-0.06 LYMPH x10^3 (test code = 731-0) 2.06 10*3/uL 1.32-3.29 MONO x10^3 (test code = 742-7) 0.32 10*3/uL 0.33-0.92 L EOS x10^3 (test code = 711-2) 0.33 10*3/uL 0.03-0.39 BASO x10^3 (test code = 704-7) 0.03 10*3/uL 0.01-0.07 Lab Interpretation (test code = 06868-1) Abnormal [facility] MOLECULAR [id number] 16:14:38* Test Item Value Reference Range Interpretation Comme nts POCT Molecular Strep (test c ode = 85476-7) Negative Negative Lab Interpretation (test cod e = 98110-8) [facility] (27884)2022-05-05 19:35:37* Test Item Value Reference Range Interpretation Comme nts NA (test code = 2896108219) 139 mmol/L 135-145 K (test code = 2759149354) 4.4 mmol/L 3.5-5.0 CL (test code = 9733068880) 104 mmol/L 98-108 CO2 TOTAL (test code = 4792601418) 22 mmol/L 23-31 L AGAP (test code = 3232423081) 2-16 BUN (test code = 5413206738) 11 mg/dL 7-23 GLUCOSE (test code = 9826813185) 95 mg/dL 70-110 CREATININE (test code = 6927174571) 0.71 mg/dL 0.50-1.04 TOTAL BILI (test code = 8005506449) 0.4 mg/dL 0.1-1.1 CALCIUM (test code = 4560854171) 9.1 mg/dL 8.6-10.6 T PROTEIN (test code = 9832569491) 7.9 g/dL 6.3-8.2 ALBUMIN (test code = 9536601878) 4.7 g/dL 3.5-5.0 ALK PHOS (test code = 4064653510) 114 U/L 34-122 ALTv (test code = 1742-6) 21 U/L 5-35 AST(SGOT) (test code = 5998170942) 21 U/L 13-40 eGFR (test code = 3269744664) mL/min/1.73m2 WESLEY (test code = WESLEY) Association [...] imaging tests). Lab Interpretation (test code = 51779-3) Abnormal [facility] WITH [id number] 19:25:37* Test Item Value Reference Range Interpretation Comme nts WBC (test code = 6690-2) See_Comment [[employer]] The system which generated this result transmitted reference range: 4.30 - 11.10 10*3/?L. The reference range was not used to interpret this result as normal/abnormal. RBC (test code = 789-8) See_Comment [[employer]] The system which generated this result transmitted [...] 32.9 g/dL 31.6-35.1 RDW-SD (test code = 57259-7) 41.7 fL 39.0-49.9 RDW-CV (test code = 788-0) 12.7 % 12.0-15.5 PLT (test code = 777-3) See_Comment H [Automated messa ge] The system which generated this result transmitted reference range: 166 - 358 10*3/?L. The reference range was not used to interpret this result as normal/abnormal. MPV (test code = 34658-7) 8.8 fL 9.5-12.9 L NRBC/100 WBC (test code = 9453873973) See_Comment [Automated [employer] ssage] The system which generated this result transmitted reference range: 0.0 - 10.0 /100 WBCs. The reference range was not used to interpret this result as normal/abnormal. NRBC x10^3 (test code = 6225601350) See_Comment [Automated messa ge] The system which generated this result transmitted reference range: 10*3/?L. The reference range was not used to interpret this result as normal/abnormal. GRAN MAT (NEUT) % (test code = 770-8) 56.1 % IMM GRAN % (test code = 3703826225) 0.40 % LYMPH % (test code = 736-9) 29.9 % MONO % (test code = 5905-5) 5.4 % EOS % (test code = 713-8) 7.8 % BASO % (test code = 706-2) 0.4 % GRAN MAT x10^3(ANC) (test code = 4979237437) 3.75 10*3/uL 1.88-7.09 IMM GRAN x10^3 (test code = 1911195490) 0.03 10*3/uL 0.00-0.06 LYMPH x10^3 (test code = 731-0) 2.00 10*3/uL 1.32-3.29 MONO x10^3 (test code = 742-7) 0.36 10*3/uL 0.33-0.92 EOS x10^3 (test code = 711-2) 0.52 10*3/uL 0.03-0.39 H BASO x10^3 (test code = 704-7) 0.03 10*3/uL 0.01-0.07 Lab Interpretation (test code = 21930-3) Abnormal [facility] [id number] 19:00:00* Test Item Value Reference Range Interpretation Comme nts POCT PREG (test code = 1605) negative On board controls acceptable with C Line (test code = 3574) present POCT PREG LOT # (test code = 3575) [id number] POCT PREG TEST DATE ( test code = 3576) 08-11-2023 Lab Interpretation (test cod e = 29010-9) Normal [facility] WITH [id number] 15:21:11* Test Item Value Reference Range Interpretation [...] 33.0 g/dL 31.6-35.1 RDW-SD (test code = 51786-7) 42.6 fL 39.0-49.9 RDW-CV (test code = 788-0) 12.9 % 12.0-15.5 PLT (test code = 777-3) See_Comment H [Automated messa ge] The system which generated this result transmitted reference range: 166 - 358 10*3/?L. The reference range was not used to interpret this result as normal/abnormal. MPV (test code = 77391-7) 9.1 fL 9.5-12.9 L NRBC/100 WBC (test code = 0613869245) See_Comment [Automated me ssage] The system which generated this result transmitted reference range: 0.0 - 10.0 /100 WBCs. The reference range was not used to interpret this result as normal/abnormal. NRBC x10^3 (test code = 1812237632) See_Comment [Automated messa ge] The system which generated this result transmitted reference range: 10*3/?L. The reference range was not used to interpret this result as normal/abnormal. GRAN MAT (NEUT) % (test code = 770-8) 56.8 % IMM GRAN % (test code = 4814272705) 0.30 % LYMPH % (test code = 736-9) 29.5 % MONO % (test code = 5905-5) 4.3 % EOS % (test code = 713-8) 8.3 % BASO % (test code = 706-2) 0.8 % GRAN MAT x10^3(ANC) (test code = 6898242234) 3.57 10*3/uL 1.88-7.09 IMM GRAN x10^3 (test code = 5898437486) 0.00-0.06 LYMPH x10^3 (test code = 731-0) 1.85 10*3/uL 1.32-3.29 MONO x10^3 (test code = 742-7) 0.27 10*3/uL 0.33-0.92 L EOS x10^3 (test code = 711-2) 0.52 10*3/uL 0.03-0.39 H BASO x10^3 (test code = 704-7) 0.05 10*3/uL 0.01-0.07 Lab Interpretation (test code = 11531-8) [facility]:12:13* Test Item Value Reference Range Interpretation Comme nts NA (test code = 0733528452) 141 mmol/L 135-145 K (test code = 1630710817) 3.4 mmol/L 3.5-5.0 L CL (test code = 3017263613) 104 mmol/L 98-108 CO2 TOTAL (test code = 3958921455) 23 mmol/L 23-31 AGAP (test code = 2252197906) 2-16 BUN (test code = 3354972523) 9 mg/dL 7-23 GLUCOSE (test code = [id number]) 101 mg/dL 70-110 CREATININE (test code = 5518157714) 0.82 mg/dL 0.50-1.04 TOTAL BILI (test code = 5166778421) 0.7 mg/dL 0.1-1.1 CALCIUM (test code = 5477121853) 9.3 mg/dL 8.6-10.6 T PROTEIN (test code = 3450751418) 8.1 g/dL 6.3-8.2 ALBUMIN (test code = 2819088671) 4.7 g/dL 3.5-5.0 ALK PHOS (test code = 7852903453) 108 U/L 34-122 ALTv (test code = 1742-6) 24 U/L 5-35 AST(SGOT) (test code = 3051284131) 49 U/L 13-40 H eGFR (test code = 6980850388) mL/min/1.73m2 WESLEY (test code = WESLEY) Association [...] imaging tests). Lab Interpretation (test code = 07319-5) Abnormal [facility] [id number] 14:45:00* Test Item Value Reference Range Interpretation Comme nts POCT PREG (test code = 1605) negative On board controls acceptable with C Line (test code = 3574) present POCT PREG LOT # (test code = 3575) [id number] POCT PREG TEST DATE ( test code = 3576) 08/11/2023 Lab Interpretation (test cod e = 59204-3) Normal [facility] [id number] 01:22:00* Test Item Value Reference Range Interpretation Comme [facility] POCT PREG (test code = 1605) Negative On board controls acceptable with C Line (test code = 3574) Present POCT PREG LOT # (test code = 3575) [id number] POCT PREG TEST DATE ( test code = 3576) 08-11-2023 Lab Interpretation (test cod e = 40038-6) Normal [facility] METABOLIC PANEL (NA, K, CL, CO2, GLUCOSE, BUN, CREATININE, CA)2022-04-07 23:01:10* Test Item Value Reference Range Interpretation Comme [facility] NA (test code = 0581562172) 138 mmol/L 135-145 K (test code = 1321813736) 4.3 mmol/L 3.5-5.0 CL (test code = 7208335053) 107 mmol/L 98-108 CO2 TOTAL (test code = 4310506607) 20 mmol/L 23-31 L AGAP (test code = 7041985888) 2-16 BUN (test code = 8927318502) 9 mg/dL 7-23 GLUCOSE (test code = 6515375981) 204 mg/dL 70-110 H CREATININE (test code = 0350381477) 0.74 mg/dL 0.50-1.04 CALCIUM (test code = 0263524865) 9.1 mg/dL 8.6-10.6 eGFR (test code = 6508047874) mL/min/1.73m2 WESLEY (test code = WESLEY) Association [...] imaging tests). Lab Interpretation (test code = 75799-3) Abnormal [facility] WITH [id number] 22:57:34* Test Item Value Reference Range Interpretation Comme nts WBC (test code = 6690-2) See_Comment [Automated [employer]] The system which generated this result transmitted reference range: 4.30 - 11.10 10*3/?L. The reference range was not used to interpret this result as normal/abnormal. RBC (test code = 789-8) See_Comment [Automated [employer]] The system which generated this result transmitted [...] 33.5 g/dL 31.6-35.1 RDW-SD (test code = 16908-6) 42.9 fL 39.0-49.9 RDW-CV (test code = 788-0) 13.4 % 12.0-15.5 PLT (test code = 777-3) See_Comment H [Automated messa ge] The system which generated this result transmitted reference range: 166 - 358 10*3/?L. The reference range was not used to interpret this result as normal/abnormal. MPV (test code = 52994-2) 8.9 fL 9.5-12.9 L NRBC/100 WBC (test code = 0460901200) See_Comment [Automated [employer] ssage] The system which generated this result transmitted reference range: 0.0 - 10.0 /100 WBCs. The reference range was not used to interpret this result as normal/abnormal. NRBC x10^3 (test code = 1039918922) See_Comment [Automated messa ge] The system which generated this result transmitted reference range: 10*3/?L. The reference range was not used to interpret this result as normal/abnormal. GRAN MAT (NEUT) % (test code = 770-8) 88.7 % IMM GRAN % (test code = 3020612787) 0.70 % LYMPH % (test code = 736-9) 9.4 % MONO % (test code = 5905-5) 0.9 % EOS % (test code = 713-8) 0.1 % BASO % (test code = 706-2) 0.2 % GRAN MAT x10^3(ANC) (test code = 5196919616) 7.81 10*3/uL 1.88-7.09 H IMM GRAN x10^3 (test code = 1258087087) 0.06 10*3/uL 0.00-0.06 LYMPH x10^3 (test code = 731-0) 0.83 10*3/uL 1.32-3.29 L MONO x10^3 (test code = 742-7) 0.08 10*3/uL 0.33-0.92 L EOS x10^3 (test code = 711-2) 0.03-0.39 L BASO x10^3 (test code = 704-7) 0.01-0.07 Lab Interpretation (test code = 40605-0) Abnormal [facility] [id number] 14:07:00* Test Item Value Reference Range Interpretation Comme nts POCT PREG (test code = 1605) negative On board controls acceptable with C Line (test code = 3574) present POCT PREG LOT # (test code = 3575) [id number] POCT PREG TEST DATE ( test code = 3576) 08/11/2023 Lab Interpretation (test cod e = 88406-1) Normal [facility] [id number] 13:52:00* Test Item Value Reference Range Interpretation Comme nts POCT PREG (test code = 1605) negative On board controls acceptable with C Line (test code = 3574) present Lab Interpretation (test cod e = 92323-9) Normal [facility] [id number] 14:59:00* Test Item Value Reference Range Interpretation Comme nts POCT PREG (test code = 1605) negative On board controls acceptable with C Line (test code = 3574) yes POCT PREG LOT # (test code = 3575) [id number] POCT PREG TEST DATE ( test code = 3576) 07/11/2023 Lab Interpretation (test cod e = 20087-3) Normal [facility]. METABOLIC PANEL (51694)2022 17:51:43* Test Item Value Reference Range Interpretation Comme nts NA (test code = 1289493172) 139 mmol/L 135-145 K (test code = 1055500045) 4.1 mmol/L 3.5-5 CL (test code = 6173447604) 104 mmol/L 98-108 CO2 TOTAL (test code = 6280453831) 22 mmol/L 23-31 L AGAP (test code = 6306362648) 2-16 BUN (test code = 4570181409) 7 mg/dL 7-23 GLUCOSE (test code = 3833230693) 114 mg/dL 70-110 H CREATININE (test code = 4230632050) 0.69 mg/dL 0.5-1.04 TOTAL BILI (test code = 1539715311) 0.4 mg/dL 0.1-1.1 CALCIUM (test code = 8742885096) 9.7 mg/dL 8.6-10.6 T PROTEIN (test code = 2888681422) 7.2 g/dL 6.3-8.2 ALBUMIN (test code = 4128873291) 4.6 g/dL 3.5-5 ALK PHOS (test code = 2181220342) 65 U/L 34-122 ALTv (test code = 1742-6) 15 U/L 5-35 AST(SGOT) (test code = 6977394719) 19 U/L 13-40 eGFR (test code = 3564421790) mL/min/1.73m2 WESLEY (test code = WESLEY) Association [...] imaging tests). Lab Interpretation (test code = 70770-7) Abnormal [facility] WITH [id number] 17:40:24* Test Item Value Reference Range Interpretation [...] 33.3 g/dL 31.6-35.1 RDW-SD (test code = 09923-6) 43.1 fL 39-49.9 RDW-CV (test code = 788-0) 13.2 % 12-15.5 PLT (test code = 777-3) See_Comment [Automated [employer]] The system which generated this result transmitted reference range: 166 - 358 10*3/?L. The reference range was not used to interpret this result as normal/abnormal. MPV (test code = 70566-7) 9.5 fL 9.5-12.9 NRBC/100 WBC (test code = 6994242261) See_Comment [Automated [employer] ssage] The system which generated this result transmitted reference range: 0.0 - 10.0 /100 WBCs. The reference range was not used to interpret this result as normal/abnormal. NRBC x10^3 (test code = 2545475376) See_Comment [Automated messa ge] The system which generated this result transmitted reference range: 10*3/?L. The reference range was not used to interpret this result as normal/abnormal. GRAN MAT (NEUT) % (test code = 770-8) 57.8 % IMM GRAN % (test code = 9767765722) 0.20 % LYMPH % (test code = 736-9) 30.8 % MONO % (test code = 5905-5) 5.1 % EOS % (test code = 713-8) 5.6 % BASO % (test code = 706-2) 0.5 % GRAN MAT x10^3(ANC) (test code = 8148178349) 3.61 10*3/uL 1.88-7.09 IMM GRAN x10^3 (test code = 7285433704) 0-0.06 LYMPH x10^3 (test code = 731-0) 1.92 10*3/uL 1.32-3.29 MONO x10^3 (test code = 742-7) 0.32 10*3/uL 0.33-0.92 L EOS x10^3 (test code = 711-2) 0.35 10*3/uL 0.03-0.39 BASO x10^3 (test code = 704-7) 0.03 10*3/uL 0.01-0.07 Lab Interpretation (test code = 66989-8) Abnormal [facility] [id number] 17:27:00* Test Item Value Reference Range Interpretation Comme nts POCT PREG (test code = 1605) negative On board controls acceptable with C Line (test code = 3574) present POCT PREG LOT # (test code = 3575) [id number] POCT PREG TEST DATE ( test code = 3576) Lab Interpretation (test cod e = 36726-3) [facility]:45:[facility]* Test Item Value Reference Range Interpretation Comme [facility] LIPASE (test code = 3816948542) 41 U/L 0-220 Lab Interpretation (test cod e = 69705-5) Normal [facility] [id number] 10:57:00* Test Item Value Reference Range Interpretation Comme nts POCT PREG (test code = 1605) Negative On board controls acceptable with C Line (test code = 3574) Present POCT PREG LOT # (test code = 3575) [id number] POCT PREG TEST DATE ( test code = 3576) 03/12/2023 Lab Interpretation (test cod e = 53221-5) Normal [facility] METABOLIC PANEL (NA, K, CL, CO2, GLUCOSE, BUN, CREATININE, CA)2022-01-18 10:56:51* Test Item Value Reference Range Interpretation Comme nts NA (test code = 0377016678) 137 mmol/L 135-145 K (test code = 1598048030) 4.6 mmol/L 3.5-5 Slight hemolysis CL (test code = 6364178431) 108 mmol/L 98-108 CO2 TOTAL (test code = 2446929866) 22 mmol/L 23-31 L AGAP (test code = 8837572594) 2-16 BUN (test code = 6578676157) 11 mg/dL 7-23 Slight hemolysis GLUCOSE (test code = 1057875330) 83 mg/dL 70-110 CREATININE (test code = 8826839260) 0.68 mg/dL 0.5-1.04 CALCIUM (test code = 0596871355) 8.8 mg/dL 8.6-10.6 eGFR (test code = 5588248672) mL/min/1.73m2 WESLEY (test code = WESLEY) Association [...] imaging tests). Lab Interpretation (test code = 69512-1) [facility] (ALB,T.PRO,BILI T,BU/BC,ALT,AST,ALK PHOS)2022-01-18 10:56:51* Test Item Value Reference Range Interpretation Comme nts TOTAL BILI (test code = 2782982652) 0.6 mg/dL 0.1-1.1 BILI UNCON (test code = 0521990834) 0.1 mg/dL 0.1-1.1 BILI CONJ (test code = 4169842512) 0.0 mg/dL 0-0.3 T PROTEIN (test code = 1550833875) 8.6 g/dL 6.3-8.2 H ALBUMIN (test code = 7006729358) 5.1 g/dL 3.5-5 H ALK PHOS (test code = 6364283003) 79 U/L 34-122 ALTv (test code = 1742-6) 117 U/L 5-35 H AST(SGOT) (test code = 4460056272) 163 U/L 13-40 H Lab Interpretation (test cod e = 04751-9) [facility]normal [facility], [id number] 10:54:25* Test Item Value Reference Range Interpretation Comme nts PREG SERUM (test code = 9789696653) Negative WESLEY (test code = WESLEY) Less than 10 IU/L. ?If low titer or ectopic is suspected, resubmit specimen in 48-72 hours. [facility] [id number] 10:40:49* Test Item Value Reference Range Interpretation Comme nts WBC (test code = 6690-2) See_Comment [Automated [employer]] The system which generated this result [...] 33.6 g/dL 31.6-35.1 RDW-SD (test code = 28223-5) 45.3 fL 39-49.9 RDW-CV (test code = 788-0) 14.5 % 12-15.5 PLT (test code = 777-3) See_Comment [Automated messa ge] The system which generated this result transmitted reference range: 166 - 358 10*3/?L. The reference range was not used to interpret this result as normal/abnormal. MPV (test code = 73754-9) 9.5 fL 9.5-12.9 NRBC/100 WBC (test code = 8133281325) See_Comment [Automated [employer] ssage] The system which generated this result transmitted reference range: 0.0 - 10.0 /100 WBCs. The reference range was not used to interpret this result as normal/abnormal. NRBC x10^3 (test code = 3223614583) See_Comment [Automated messa ge] The system which generated this result transmitted reference range: 10*3/?L. The reference range was not used to interpret this result as normal/abnormal. GRAN MAT (NEUT) % (test code = 770-8) 47.6 % IMM GRAN % (test code = 3277225715) 0.60 % LYMPH % (test code = 736-9) 39.9 % MONO % (test code = 5905-5) 5.9 % EOS % (test code = 713-8) 5.3 % BASO % (test code = 706-2) 0.7 % GRAN MAT x10^3(ANC) (test code = 1650912967) 4.45 10*3/uL 1.88-7.09 IMM GRAN x10^3 (test code = 9151093966) 0.06 10*3/uL 0-0.06 LYMPH x10^3 (test code = 731-0) 3.74 10*3/uL 1.32-3.29 H MONO x10^3 (test code = 742-7) 0.55 10*3/uL 0.33-0.92 EOS x10^3 (test code = 711-2) 0.50 10*3/uL 0.03-0.39 H BASO x10^3 (test code = 704-7) 0.07 10*3/uL 0.01-0.07 Lab Interpretation (test code = 94904-8) [facility]normal [facility] [id number] 18:31:00* Test Item Value Reference Range Interpretation Comme nts POCT PREG (test code = 1605) Negative On board controls acceptable with C Line (test code = 3574) Yes POCT PREG LOT # (test code = 3575) POCT PREG TEST DATE ( test code = 3576) [facility] URINALYSIS W/O SPECIFIC [id number] 18:31:00* Test Item Value Reference Range Interpretation [...] = 3257) Trace Negative - Negati ve [facility] Consult Notes Date/Time Note Provider Source 2024-03-11 [...] N/A 07/21/2019 Surgeon: Prasanna Vargas MD; Location: [facility] Labor and Delivery OR Location ESOPHAGOGASTRODUODENOSCOPY Upper 02/27/2024 Surgeon: Toi Mensah MD; Location: ENDOSCOPY (CS) OR LOCATION FLEXIBLE SIGMOIDOSCOPY (SHX) N/A 02/27/2024 Surgeon: Toi Mensah MD; Location: ENDOSCOPY ([facility]) OR LOCATION TUBAL LIGATION N/A 07/21/2019 Surgeon: Prasanna Vargas MD; Location: [facility] Labor and Delivery OR [...] I agree with resident's note as written. [facility] 2024-02-26 10:25:08 Associated Order(s): CONSULT GASTROENTEROLOGY Department [...] N/A 07/21/2019 Surgeon: Prasanna Vargas MD; Location: [facility] Labor and Delivery OR Location TUBAL LIGATION N/A 07/21/2019 Surgeon: Prasanna Vargas MD; Location: [facility] Labor and Delivery OR [...] Friends and Family: Not on file Attends Mosque Services: Not on file Active Member of [...] and flexible sigmoidoscopy tomorrow. TOI MENSAH MD WEBSITE ADMIN, DIVISION OF GASTROENTEROLOGY AND HEPATOLOGY [facility]. [facility] 2023-01-12 00:12:43 Associated Order(s): CONSULT GENERAL SURGERY [...] symptomatic cholelithiasis 1.5 months ago at OSH ([place]). Pt states that she has had persistent RUQ pain with nausea and po intolerance along with intermittent chills and vomiting since surgery. Was seen by PCP and instructed to come to [facility] ED for further evaluation. Review of [...] N/A 07/21/2019 Surgeon: Prasanna Vargas MD; Location: [facility] Labor and Delivery OR Location TUBAL LIGATION N/A 07/21/2019 Surgeon: Prasanna Vargas MD; Location: [facility] Labor and Delivery OR [...] skin once every month. 1 mL 3 Jjafulgkcv-Xuyjctbepndtl-Smoa (FIORICET) 50-300-40 mg per capsule Take 1 [...] symptomatic cholelithiasis 1.5 months ago at OSH ([place]). Plan: Admission to [facility] service Consult IR for percutaneous drainage [...] pain, nausea, anorexia since lap [facility]ale at [facility] on 12/01/22 with noted [...] - Replete hypokalemia Mirella Vergara MD, PhD Telephone Lineworker Trauma, Acute Care Surgery, and Surgical Critical Care In-house Pager: [phone] [facility] - Health History and Physical Notes [...] migraine. She was taken to ED in [place] after syncopal episode and was directed to return to [facility]. Bloody BM 3-4 days ago. Reports had exam for internal and external hemorrhoids in [place] - no hemorrhoids. Tried bentyl, pepcid, famotidine without success. Oral zofran does not help either. States that zofran, phenergan, tigan has not helped completely. Morphine has made it tolerable. Requesting to have IV benadryl to help her headaches. Patient was recently discharged on 03/[address] [facility] team, during this admission patient presented [...] patient had been admitted twice to [facility] earlier this month for similar symptoms. However, [facility] was capped at the time of admission. Ba Manuel DO Telephone Lineworker | Department of Internal Medicine INTERNAL MEDICINE [facility] 2024-03-04 13:22:03 [facility] ADMIT H&P PCP: PATIENT DOES NOT [...] diarrhea. Patient was recently admitted to [facility] from 02/21-02/26 for same presentation. Inpatient EGD revealed esophagitis and gastritis with biopsies positive for H. Pylori, bismuth quadruple therapy and PPI BID called in yesterday per GI but patient unable to [employer] Patient reports since discharge, her symptoms have not improved. She states that she requested to be discharged after her son got Kawasaki's and she was able to tolerate her pain. Yesterday, she went to picket labor union the bismuth quadruple therapy but the pharmacy [...] reports going to her local ED in [place] 2 days ago. She reports getting a [...] Per chart review, patient was admitted to [facility] in January 2023 1.5 month after lpa choley for a gallbladder fossa 2.5 x 2.6 x 4.6 cm fluid collection containing small air foci concerning for abscess. Patient underwent IR guided drainage. Since then patient reports multiple visits to [place] ED for similar symptoms. She reports 40 [...] N/A 07/21/2019 Surgeon: Prasanna Vargas MD; Location: [facility] Labor and Delivery OR Location ESOPHAGOGASTRODUODENOSCOPY Upper 02/27/2024 Surgeon: Toi Mensah MD; Location: ENDOSCOPY (CS) OR LOCATION FLEXIBLE SIGMOIDOSCOPY (SHX) N/A 02/27/2024 Surgeon: Toi Mensah MD; Location: ENDOSCOPY ([facility]) OR LOCATION TUBAL LIGATION N/A 07/21/2019 Surgeon: Prasanna Vargas MD; Location: [facility] Labor and Delivery OR [...] pBNP: - Trop I: - OSH records [place], [place] Operative Note 12/01/22 - venous bleeding from GB bed, Quentin (absorbable hemostat powder) and Surgicel placed Author [facility] December 01, 2022 11:26am Note Date/Time December 01, 2022 11:26am [facility] NAME: NIKKO DYSON ADMITTING: Edgar Lora MD ADMIT DATE:12/01/22 ATTENDING: Edgar Lora MD : 1995 ACCOUNT NO:[id number] PATIENT TYPE:ADM IN LOCATION: [facility] Report Status: Signed Date of Procedure: 12/01/22 Surgeon: Edgar Lora MD Date of Service: 12/01/22 Preop diagnosis: Acute cholecystitis and cholelithiasis Postop diagnosis: Same Procedure performed: Laparoscopic cholecystectomy Surgeon: Edgar Lora MD Coordinator Of Online Programs: Jessica CROOKS Estimated blood loss: Minimal Specimen: [...] MUCOSA WITH FOCAL NON-SPECIFIC ACUTE INFLAMMATION ASSESSMENT/PLAN Nikok Dyson is a 29 year old female [...] overnight for observation. - Admit to [facility] for observation - PPI IV BID [...] details. Jose Naik MD, MPH Internal Medicine [facility] 2024-02-26 20:55:24 Endoscopy H & P Age: [...] 02/26/24 1746 [START ON 02/27/2024] sodium phosphates (VJWRY-SA-KKE ENEMA) 19-7 gram/118 mL enema 1 Enema [...] complete the procedure, cardiovascular complications such as CT, stroke, arrhythmia, and . Informed consent obtained. Giselle Vance MD PGY-5, Gastroenterology and Hepatology Associated attestation - Toi Mensah MD - 02/27/2024 8:34 AM CDT I have personally seen and examined the patient with Dr. Vance. I agree with assessment and plan. Proceed with EGD and flexible sigmoidoscopy. TOI RODRIGUEZ, WEBSITE ADMIN, DIVISION OF GASTROENTEROLOGY AND HEPATOLOGY. [facility] [place] [facility]. GASTROENTEROLOGY [facility] 2024-02-22 14:40:[address] [facility] ADMIT H&P PCP: PATIENT DOES NOT [...] reports going to her local ED in [place] 2 days ago. She reports getting a [...] Per chart review, patient was admitted to [facility] in January 2023 1.5 month after lpa choley for a gallbladder fossa 2.5 x 2.6 x 4.6 cm fluid collection containing small air foci concerning for abscess. Patient underwent IR guided drainage. Since then patient reports multiple visits to [place] ED for similar symptoms. She reports 40 [...] taking: Reported on 02/22/2024) 1 mL 3 Ptuvljletu-Hpidyqbtbplyr-Cban (FIORICET) 50-300-40 mg per capsule Take 1 [...] 0 SOCIAL HISTORY Living situation: Lives in [place] with and child Tobacco use: none Alcohol [...] No focal deficits OSH records OSH records [place], [place] Operative Note 12/01/22 - venous bleeding from GB bed, Quentin (absorbable hemostat powder) and Surgicel placed Author Edgar Lora [facility] December 01, 2022 11:26am Note Date/Time December 01, 2022 11:26am [facility] NAME: NIKKO DYSON ADMITTING: Edgar Lora MD ADMIT DATE:12/01/22 ATTENDING: Edgar Lora MD : 1995 ACCOUNT NO:[id number] PATIENT TYPE:ADM IN LOCATION: [facility] Report Status: Signed Date of Procedure: 12/01/22 Surgeon: Edgar Lora MD Date of Service: 12/01/22 Preop diagnosis: Acute cholecystitis and cholelithiasis Postop diagnosis: Same Procedure performed: Laparoscopic cholecystectomy Surgeon: Edgar Lora MD Coordinator Of Online Programs: Jessica CROOKS Estimated blood loss: Minimal Specimen: [...] see the resident's note for additional details. [facility] 2023-01-12 01:05:04 01/12/23 1:05 AM Please refer to consult note written by Rodolfo Riggins DO on 01/12/23 for complete H&P. Rodolfo Riggins DO PGY-2 Surgery Resident Associated attestation - Mirella Vergara MD - 01/12/2023 1:47 AM CDT Agree [facility]
[2024-05-13] MEDS ORDERED: ONDANSETRON 4 MG/2 ML VIAL ONE ×2 (09:08→10:18)
[2024-05-13] MEDS ORDERED: NA CHLORIDE 0.9% 1,000 ML ONE ×2 (09:08→10:18)
[2024-05-13] MEDS ORDERED: FENTANYL CITR 100 MCG/2 ML ONE ×2 (09:08→10:19)
[2024-05-13 09:39] LABS: Specific Gravity 1.016 (1.005-1.030); Urine Bacteria None Seen /HPF (<20); Urine Bilirubin NEGATIVE (Negative); Urine Blood 1+ (Negative); Urine Clarity Extremely Turbid (Clear); Urine Color Yellow (Yellow); Urine Culture Reflex Order NOT NEEDED; Urine Glucose NEGATIVE (Negative); Urine Ketones TRACE (Negative); Urine Microscopic Reflex YN ORDER UMIC; Urine Mucus 2+ /HPF (None Seen); Urine Nitrite NEGATIVE (Negative); Urine Protein TRACE (Negative); Urine Urobilinogen Normal (Normal); Urine WBC <5 /HPF (<5); Urine Yeast (Budding) Trace /HPF (None Seen)
[2024-05-13 09:45] LABS: Barbiturates NEGATIVE (NEGATIVE); Benzodiazepines POSITIVE (NEGATIVE); Cocaine NEGATIVE (NEGATIVE); METHAMPHETAM NEGATIVE (NEGATIVE); Methadone NEGATIVE (NEGATIVE); Opiates NEGATIVE (NEGATIVE); Phencyclidine NEGATIVE (NEGATIVE); THC Cannibis NEGATIVE (NEGATIVE)
[2024-05-13 09:52] LABS: Albumin 4.3 g/dL (3.4-5.0); Anion Gap 11.9 mEq/L (5.0-15.0); Bilirubin Total 0.9 mg/dL (0.2-1.0); Globulin 4.5 g/dL (2.3-3.5); Potassium 3.9 mEq/L (3.5-5.1); Protein, Total 8.8 g/dL (6.4-8.2)
[2024-05-13 09:58] LABS: Absolute Eosinophils 0.3 K/uL (0-0.5); Absolute Lymphocytes (CBC) 1.8 K/uL (0.7-4.9); Absolute Monocytes 0.3 K/uL (0.1-1.3); Absolute Neutrophil 6.6 K/uL (1.8-8.0); Basophils % 0.4 % (0-1.3); Eosinophils % 3.4 % (0-4.4); Hematocrit 50.2 % (36.0-45.0); Hemoglobin 16.9 g/dL (12.0-15.0); Lymphocytes % 20.2 % (15.3-44.8); MCH 28.9 pg (27.0-35.0); MCHC 33.6 g/dL (32.0-36.0); MCV 85.9 fL (80-100); MPV 7.7 fL (7.6-11.3); Monocytes % 3.1 % (3.3-12.3); Neutrophils % 72.9 % (41.7-73.7); Nucleated Red Blood Cells % 0.2 % (0-0); Platelets 434 thou/uL (152-406); RBC Red Blood Cell Count 5.84 M/uL (3.86-4.86); Red Cell Distribution Width 13.4 % (12.1-15.2)
--- NOTE | 2024-05-13 11:09 | EDPHYS ---
Physician Documentation [facility] Name: Natanael Dyson Age: 29 yrs Sex: Female : 1995 Arrival Date: 05/13/2024 Time: 08:38 Bed 18 Private MD: ED Physician Alvaro Bernal HPI: 05/13 09:02 This 29 yrs old Female presents to ER via Ambulatory with complaints of Abdominal Pain, bo1 Nausea. 09:02 The patient presents to the emergency department with nausea, vomiting, abdominal pain. bo1 Onset: The symptoms/episode began/occurred 2 day(s) ago. Possible causes: flare up of bowel problem, Due to H pylori per the pt (off H pylori treatment due to intolerance.). The patient has experienced similar episodes in the past, Not any better since 05/10 (last visit). 09:38 Recent dx of colitis - 05/10. Pt on abx and is taking it. . bo1 Historical: - Allergies: 08:54 Compazine; bp 08:54 Haldol; bp 08:54 Iodine; bp 08:54 Morphine; bp 08:54 NSAIDS NON STEROIDAL ANTI INFLAMMATORY DRUG; bp 08:54 Reglan; bp 08:54 Toradol; bp - PMHx: 08:54 Anxiety; breast cancer; depressive disorder; Kidney stone; nephritis; bp - PSHx: 08:54 Cholecystectomy; Ligation of fallopian tube; bp - Immunization history:: Adult Immunizations up to date. - Infectious Disease History:: Denies. - Social history:: Smoking status: Patient denies any tobacco usage or history of. ROS: 09:40 Constitutional: Negative for fever, chills, and weight loss bo1 09:40 Constitutional: Negative for chills, fever, 09:40 Abdomen/GI: Positive for abdominal pain, nausea and vomiting, Negative for diarrhea, rectal bleeding, 09:40 MS/extremity: Negative for pain, rash, swelling, 09:40 Skin: Negative for rash, Exam: 09:42 Constitutional: This is a well developed, well nourished patient who is awake, alert, bo1 and in moderate acute distress. 09:42 Constitutional: The patient appears alert, awake, anxious, in obvious distress, moderately distressed, uncomfortable, In tears 09:42 Neck: External neck: is normal, no acute changes, 09:42 Cardiovascular: Rate: tachycardic, Rhythm: regular, Pulses: no pulse deficits are appreciated, 09:42 Respiratory: the patient does not display signs of respiratory distress, Respirations: normal, no acute changes, Breath sounds: are clear throughout, 09:42 Abdomen/GI: Palpation: soft, mild abdominal tenderness, rebound tenderness, is not appreciated, involuntary guarding, is not appreciated, 09:42 Back: CVA tenderness, is absent, 09:42 Musculoskeletal/extremity: Extremities: all appear grossly normal, with no appreciated pain with palpation, 09:42 Skin: no rash present. Vital Signs: 08:53 BP 116 / 75; Pulse 124; Resp 18; Temp 98; Pulse Ox 100% ; Weight 54.43 kg; Height 5 ft. bp 1 in. ; 09:30 BP 123 / 81; Pulse 102; Resp 18; Pulse Ox 99% on R/A; rs5 10:44 BP 128 / 78; Pulse 110; Resp 17; Pulse Ox 99% on R/A; rs5 13:00 BP 127 / 87; Pulse 81; Resp 18; Pulse Ox 100% ; bp 08:53 Body Mass Index 22.67 (54.43 kg, 154.94 cm) bp MDM: 08:53 Medical Screening Exam initiated bo1 11:05 Differential diagnosis: Nonspecific abd pain, Colitis, UTI Dehydration. Intractable NV bo1 and abd pain. Data reviewed: vital signs, old medical records, lab test result(s). Consideration of Admission/Observation Patient was admitted/placed on observation. Jessica Yee to Dr Chapin FELIX. Medication response: Still vomiting and having abd pain. Response to treatment: There is no appreciated change of the patient's symptoms at this time. ED course: Pt has intractable NV and abd pain. Needs more hydration and obs on the floor. 05/13 09:04 Order name: CBC with Diff; Complete Time: 10:00 bo1 05/13 09:04 Order name: CMP; Complete Time: 10:00 bo05/13 09:04 Order name: Lipase; Complete Time: 10:00 bo05/13 09:04 Order name: Urinalysis w/ reflexes; Complete Time: 09:45 bo1 05/13 09:04 Order name: UDS; Complete Time: 10:00 bo1 05/13 12:05 Order name: Urinalysis w/ reflexes EDMS 05/13 12:05 Order name: CBC with Automated Diff EDMS 05/13 12:05 Order name: CBC with Automated Diff EDMS 05/13 12:05 Order name: Comprehensive Metabolic Panel EDMS 05/13 12:05 Order name: Comprehensive Metabolic Panel EDMS 05/13 12:05 Order name: Magnesium EDMS 05/13 12:05 Order name: Magnesium EDMS 05/13 09:04 Order name: IV Saline Lock; Complete Time: bo1 05/13 09:04 Order name: Labs collected and sent; Complete Time: bo1 Administered Medications: 09:29 Drug: NS 0.9% IV 1000 ml IV at 1 bolus Per protocol; to be given as a bolus over 60 bp minutes Route: IV; Rate: 1 bolus; Site: right hand; 13:18 Follow up: IV Status: Completed infusion bp 09:29 Drug: fentaNYL (PF) IVP 100 mcg IVP once Route: IVP; Site: right hand; bp 13:18 Follow up: Response: No adverse reaction bp 09:30 Drug: Ondansetron IVP 4 mg IVP once; over 2 minutes Route: IVP; Site: right hand; bp 13:19 Follow up: Response: No adverse reaction bp 10:20 Drug: NS 0.9% IV 1000 ml IV at 1000 ml once; to be given as a bolus over 60 minutes rs5 Route: IV; Rate: 1000 ml; Site: right hand; 13:18 Follow up: IV Status: Completed infusion bp 10:20 Drug: Ondansetron IVP 4 mg IVP once; over 2 minutes Route: IVP; Site: right hand; rs5 13:18 Follow up: Response: No adverse reaction bp 10:20 Drug: fentaNYL (PF) IVP 100 mcg IVP once Route: IVP; Site: right hand; rs5 13:17 Follow up: Response: No adverse reaction bp Disposition Summary: 05/13/24 11:09 Hospitalization Ordered Notes: Hospitalization Status: Observation bo1 Provider: Stone Samson bo1 Location: Telemetry/MedSurg (observation) bo1 Condition: Fair bo1 Problem: an acute exacerbation bo1 Symptoms: are unchanged bo1 Bed/Room Type: Standard bo1 Room Assignment: bo1 Diagnosis - Nausea with vomiting, unspecified bo1 - Abdominal pain, Generalized bo1 - Cyclical vomiting, intractable bo1 - Left sided colitis bo1 Forms: - Medication Reconciliation Form bo1 - SBAR form bo1 - Leadership Thank You Letter bo1 Signatures: Dispatcher [employer] Jayy Gutierrez, RN RN bp Brody Sevilla, RN RN rs5 OeAlvaro shahid MD MD bo1 Corrections: (The following items were deleted from the chart) 09:04 09:04 CBC+H.LAB.BRZ ordered. EDMS EDMS 09:04 09:04 COMPREHENSIVE METABOLIC PANEL+C.LAB.BRZ ordered. EDMS EDMS 09:04 09:04 LIPASE+C.LAB.BRZ ordered. EDMS EDMS 09:04 09:04 Urinalysis+U.LAB.BRZ ordered. EDMS EDMS
--- NOTE | 2024-05-13 11:09 | ER ---
Nurse's Notes [facility] Name: Natanael Dyson Age: 29 yrs Sex: Female : 1995 Arrival Date: 05/13/2024 Time: 08:38 Bed 18 Private MD: Diagnosis: Nausea with vomiting, unspecified;Abdominal pain, Generalized;Cyclical vomiting, intractable;Left sided colitis Presentation: 05/13 08:53 Chief complaint: Patient states: CHRONIC ABDOMINAL PAIN. Coronavirus screen: At this bp time, the client does not indicate any symptoms associated with coronavirus-19. Ebola Screen: No symptoms or risks identified at this time. Initial Sepsis Screen: Does the patient meet any 2 criteria? No. Patient's initial sepsis screen is negative. Does the patient have a suspected source of infection? No. Patient's initial sepsis screen is negative. Risk Assessment: Do you want to hurt yourself or someone else? Patient reports no desire to harm self or others. Onset of symptoms is unknown. 08:53 Method Of Arrival: Ambulatory bp 08:53 Acuity: THIERNO 3 bp Triage Assessment: 08:54 General: Appears in no apparent distress. uncomfortable, Behavior is cooperative, bp appropriate for age, anxious. Pain: Complains of pain in abdomen. EENT: No deficits noted. Neuro: No deficits noted. Cardiovascular: No deficits noted. Respiratory: No deficits noted. GI: Reports lower abdominal pain, nausea. : No signs and/or symptoms were reported regarding the genitourinary system. Derm: No deficits noted. Musculoskeletal: No deficits noted. Historical: - Allergies: 08:54 Compazine; bp 08:54 Haldol; bp 08:54 Iodine; bp 08:54 Morphine; bp 08:54 NSAIDS NON STEROIDAL ANTI INFLAMMATORY DRUG; bp 08:54 Reglan; bp 08:54 Toradol; bp - PMHx: 08:54 Anxiety; breast cancer; depressive disorder; Kidney stone; nephritis; bp - PSHx: 08:54 Cholecystectomy; Ligation of fallopian tube; bp - Immunization history:: Adult Immunizations up to date. - Infectious Disease History:: Denies. - Social history:: Smoking status: Patient denies any tobacco usage or history of. Screenin:30 [facility] ED Fall Risk Assessment (Adult) History of falling in the last 3 months, bp including since admission No falls in past 3 months (0 pts) Confusion or Disorientation No (0 pts) Intoxicated or Sedated No (0 pts) Impaired Gait No (0 pts) Mobility Assist Device Used No (0 pt) Altered Elimination No (0 pt) Score/Fall Risk Level 0 - 2 = Low Risk Oriented to surroundings. Abuse screen: Denies threats or abuse. Denies injuries from another. Nutritional screening: No deficits noted. Tuberculosis screening: No symptoms or risk factors identified. Assessment: 09:00 General: Appears distressed, unkempt, Behavior is appropriate for age, agitated, bp anxious. 11:00 Reassessment: No changes from previously documented assessment. Patient is alert, bp oriented x 3, equal unlabored respirations, skin warm/dry/pink. 13:00 Reassessment: Patient appears in no apparent distress at this time. bp Vital Signs: 08:53 BP 116 / 75; Pulse 124; Resp 18; Temp 98; Pulse Ox 100% ; Weight 54.43 kg; Height 5 ft. bp 1 in. ; 09:30 BP 123 / 81; Pulse 102; Resp 18; Pulse Ox 99% on R/A; rs5 10:44 BP 128 / 78; Pulse 110; Resp 17; Pulse Ox 99% on R/A; rs5 13:00 BP 127 / 87; Pulse 81; Resp 18; Pulse Ox 100% ; bp 08:53 Body Mass Index 22.67 (54.43 kg, 154.94 cm) bp ED Course: 08:40 Patient arrived in ED. mr 08:45 Jayy Wooten, ROSEY is Primary Nurse. bp 08:53 Alvaro Bernal MD is Attending Physician. bo1 08:54 Triage completed. bp 08:54 Arm band placed on. bp 09:30 Patient has correct armband on for positive identification. bp 09:30 No provider procedures requiring assistance completed. Inserted saline lock: 24 gauge bp in right hand, using aseptic technique. Blood collected. Flushed with 10 mL NS. 11:07 Stone Samson MD is Hospitalizing Provider. bo1 13:17 IV discontinued, intact, bleeding controlled, No redness/swelling at site. Pressure bp dressing applied. Administered Medications: 09:29 Drug: NS 0.9% IV 1000 ml IV at 1 bolus Per protocol; to be given as a bolus over 60 bp minutes Route: IV; Rate: 1 bolus; Site: right hand; 13:18 Follow up: IV Status: Completed infusion bp 09:29 Drug: fentaNYL (PF) IVP 100 mcg IVP once Route: IVP; Site: right hand; bp 13:18 Follow up: Response: No adverse reaction bp 09:30 Drug: Ondansetron IVP 4 mg IVP once; over 2 minutes Route: IVP; Site: right hand; bp 13:19 Follow up: Response: No adverse reaction bp 10:20 Drug: NS 0.9% IV 1000 ml IV at 1000 ml once; to be given as a bolus over 60 minutes rs5 Route: IV; Rate: 1000 ml; Site: right hand; 13:18 Follow up: IV Status: Completed infusion bp 10:20 Drug: Ondansetron IVP 4 mg IVP once; over 2 minutes Route: IVP; Site: right hand; rs5 13:18 Follow up: Response: No adverse reaction bp 10:20 Drug: fentaNYL (PF) IVP 100 mcg IVP once Route: IVP; Site: right hand; rs5 13:17 Follow up: Response: No adverse reaction bp Outcome: 11:09 Decision to Hospitalize by Provider. bo1 13:17 Admitted to ER Hold. Please see [facility] for further documentation. bp 13:17 Condition: stable 13:17 Instructed on the need for admit, 13:20 Patient left the ED. bp Signatures: Kymberly Murry Reg Reg mr Peltier, Brian, RN RN bp Brody Sevilla RN RN rs5 Alvaro Bernal MD MD bo1
[2024-05-13] MEDS: NA CHLORIDE 0.9% 1,000 ML IV SCH (12:00)
[2024-05-13] MEDS ORDERED: SODIUM CHLORIDE 0.9% 10ML INJ IV PRN (12:04)
--- NOTE | 2024-05-13 12:06 | P.HP ---
Certification for Inpatient Patient admitted to: Observation Practitioner: I am a practitioner with admitting privileges, knowledge of patient current condition, hospital course, and medical plan of care. Services: Services provided to patient in accordance with Admission requirements found in Title 42 Section 412.3 of the Code of Federal Regulations Patient History Date of Service: 05/13/24 Reason for admission: Intractable nausea vomit History of Present Illness: 29-year-old female with a past medical history of bipolar, anxiety, H. pylori, presented to the emergency room with abdominal pain, nausea vomiting. She reports symptoms started 2 days ago, is progressively getting worse. She reports seeing Dr. Colón, reports prior EGD with diagnosis of H. pylori reports not being able to tolerate treatment. She presented to the emergency room 2 days ago with similar symptoms, had CT, with mild colitis, she was discharged home on Cipro, Flagyl was taken medications prior to being seen in the ER today. She denies diarrhea, fever, rectal bleeding, hemeatemesis, multiple ER visits for similar complaints. Plan to admit for intractable nausea vomiting, abdominal pain, left sided colitis. Allergies ketorolac [From Toradol] Allergy (Verified 12/01/22 06:33) Hives/Rash metoclopramide [From Reglan] Allergy (Verified 12/01/22 06:33) Hives/Rash prochlorperazine [From Compazine] Allergy (Verified 12/01/22 06:33) Hives/Rash Home Medications: NK [No Home Meds] 05/27/23 - Past Medical/Surgical History -: Bipolar Disorder -: Oppositional Defiant Disorder -: ADHD -: Anxiety -: Nephrolithiasis -: Hx ADA (Dr. Bear/ Dr. Harris) -: -: tubal ligation -: Lap Choley 12/01/2022 - Social History Alcohol use: No CD- Drugs: No Caffeine use: No Review of Systems 10-point ROS is otherwise unremarkable Physical Examination - Physical Exam General: Alert, Oriented x3, Other (Anxious) HEENT: Atraumatic, Normocephalic Neck: Supple, 2+ carotid pulse no bruit Respiratory: Clear to auscultation bilaterally, Normal air movement Cardiovascular: No edema, Normal pulses Capillary refill: <2 Seconds Gastrointestinal: Normal bowel sounds, Other (Intractable nausea vomit), Tenderness (LLQ ) Musculoskeletal: No swelling, No contractures Neurological: Normal speech, Normal strength at 5/5 x4 extr Other Physical/Emotional Findings: Anxious - Studies Laboratory Data (last 24 hrs) 05/13/24 05/13/24 09:25 09:25 WBC 9.10 Hgb 16.9 H Hct 50.2 H Plt Count 434 H Sodium 138 Potassium 3.9 BUN 9 Creatinine 0.94 Glucose 101 Total Bilirubin 0.9 AST 17 ALT 24 Alkaline Phosphatase 101 Lipase 18 Assessment and Plan - Problems (Diagnosis) (1) Intractable nausea and vomiting Current Visit: Yes Status: Acute (2) Colitis Current Visit: Yes Status: Acute (3) Abdominal pain Current Visit: Yes Status: Acute Qualifiers: Abdominal location: left lower quadrant Qualified Code(s): R10.32 - Left lower quadrant pain (4) History of Helicobacter pylori infection Current Visit: Yes Status: Acute - Plan Assessment and plan Abdominal pain, intractable nausea Esophagitis on EGD Colitis No reported diarrhea,, afebrile, IV fluids, IV antibiotics, as needed antiemetics, Needs to follow-up with GI outpatient CT 05/10 . Mild thickening of the descending colon extending to the rectum could reflect a mild colitis. Normal appendix.2. Nonobstructive right nephrolithiasis. Anxiety/depression Bipolar Resume home meds Full code DVT SCDs Diet n.p.o., advance as tolerated Disposition Home independent prior Discharge Plan: Home - Advance Directives Does patient have a Living Will: No Does patient have a Durable POA for Healthcare: No - Code Status/Comfort Care Code Status: Full Code Critical Care: No Time Spent Managing Pts Care (In Minutes): 55
[2024-05-13] MEDS: droPERidol 5 MG/2 ML VIAL IV ONE (12:08)
[2024-05-13] MEDS ORDERED: METHYLPREDNISOLONE 125 MG INJ ONE (12:14)
[2024-05-13] MEDS ORDERED: DIPHENHYDRAMINE 50 MG/ML VIAL ONE (12:15)
[2024-05-13] MEDS ORDERED: DIPHENHYDRAMINE 50 MG/ML VIAL IV PRN (12:26)
[2024-05-13] MEDS: DIPHENHYDRAMINE 50 MG/ML VIAL IV ONE (12:27)
[2024-05-13] MEDS: METHYLPREDNISOLONE 125 MG INJ IV ONE (12:28)
[2024-05-13] MEDS ORDERED: CIPROFLOXACIN 400mg IV 400 MG/200 ML BAG IV SCH (12:36)
[2024-05-13] MEDS ORDERED: DIAZEPAM 5 MG TABLET PO PRN (12:37)
[2024-05-13] MEDS ORDERED: PANTOPRAZOLE 40 MG INJ IVP SCH (13:00)
[2024-05-13 13:30] VITALS: TEMP 98
[2024-05-13 13:35] VITALS: BP 127/87; O2SAT 100
[2024-05-13] MEDS ORDERED: METRONIDAZOLE 500mg IVPB 500 MG/100 ML BAG IV SCH (14:00)
[2024-05-13] MEDS ORDERED: METHYLPREDNISOLONE 40 MG INJ IV SCH (18:00)
== END 2024-05-13 13:14 | disposition left against medical advice (07) ==
LOC: ER 08:38 → ERHOLD 11:56
PROVIDERS: ADMIT Hospitalist; ATTEND Hospitalist
DX: K52.9 Noninfective gastroenteritis and colitis, unspecified (principal); A04.8 Other specified bacterial intestinal infections; K20.90 Esophagitis, unspecified without bleeding; N20.0 Calculus of kidney; R10.9 Unspecified abdominal pain; R11.2 Nausea with vomiting, unspecified; F31.9 Bipolar disorder, unspecified; F41.9 Anxiety disorder, unspecified; Z88.5 Allergy status to narcotic agent; Z88.8 Allergy status to other drugs, medicaments and biological substances
CPT/HCPCS: 96361; 85025; 81001; 36415; 83690; 80053; 80307; 96375; 96374; 99285; J1200; J3010 ×2; J2919; J2405 ×2; J1790; J7030 ×2; G0378

== ENCOUNTER 2024-06-07 08:37 | Emergency (ER) | payer OTHER ==
--- OUTSIDE RECORDS SUMMARY | 2024-06-07 08:51 | XMS REPORT | Continuity of Care Document ---
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 mouth in the morning and 1 tablet in the evening. [facility] acetaminoph en (OFIRMEV) IV piggyback 1,000 mg 2023-05 07:15: 00 03-13 07:05 :00 No 1000mg 1,000 mg, IV Piggyback, at 400 mL/hr Administer over 15 Minutes, ONCE, 1 dose, On Sat03/13/24 at 0215, Routine, Is the patient strict NPO and unable to tolerate oral medication s? Yes [facility] methylpredn isolone sod succ (SOLU-MEDRO L) injection 44.375 mg 2023-05 04:15: 00 03-13 05:06 :00 No 1mg/kg 44.375 mg (rounded from 44.5 mg = 1 mg/kg ?44.5 kg), Intravenou s, ONCE, 1 dose, On Sat03/12/24 at 2315, 2 mL [facility] iopamidol (ISOVUE 370-500 mL) injection 80 mL 2023-05 03:16: 00 03-13 03:00 :00 No [id number] 80mL 80 mL, Intravenou s, ONCE, 1 dose, On Sat03/12/24 at 2230, Routine [facility] diphenhydrA MINE (BENADRYL) injection 100 mg 2023-05 03:00: 00 03-13 05:06 :00 No [id number] 100mg 100 mg, Slow IV Push, ONCE, 1 dose, On Sat03/12/24 at 2200, STAT [facility] budesonide (PULMICORT RESPULE) nebulizer solution 1 mg 2023-05 01:00: 00 Yes 1mg 1 mg, Inhalation , BID, First dose on Sat03/12/24 at 2000, Until Discontinu ed, Routine [facility] amitriptyli ne 25 mg tablet 2023-05 00:00: 00 Yes [id number] 25mg Take 1 tablet by mouth at bedtime. [facility] budesonide 0.5 mg/2 mL nebulizer solution 2023-05 00:00: 00 06-06 05:59 :00 Yes [id number] 1mg Inhale 4 mL in the morning and 4 mL in the evening. Do all this for 84 days. [facility] diphenhydrA MINE 25 mg tablet 2023-05 00:00: 00 03-21 05:59 :00 Yes [id number] 25mg Take 1 tablet by mouth every 6 (six) hours as needed for Allergies for up to 7 days. [facility] methylPREDN ISolone sod succ (SOLU-MEDRO L (PF)) injection 40 mg 2023-05 23:45: 00 03-13 01:24 :00 No 40mg 40 mg, Intravenou s, ONCE, 1 dose, On Sat03/12/24 at 1845, 1 mL [facility] diphenhydrA MINE (BENADRYL) injection 50 mg 2023-05 23:45: 00 03-13 01:23 :00 No 50mg 50 mg, Intravenou s, ONCE, 1 dose, On Sat03/12/24 at 1845, Routine [facility] methylPREDN ISolone sod succ (SOLU-MEDRO L (PF)) injection 40 mg 2023-05 20:45: 00 03-12 20:53 :00 No 40mg 40 mg, Intravenou s, ONCE, 1 dose, On Sat03/12/24 at 1545, 1 mL [facility] diphenhydrA MINE (BENADRYL) injection 25 mg 2023-05 20:30: 00 03-12 20:58 :00 No 25mg 25 mg, Intravenou s, ONCE, 1 dose, On Sat03/12/24 at 1545, Routine [facility] diphenhydrA MINE (BENADRYL) injection 25 mg 2023-05 16:30: 00 03-12 16:16 :00 No 25mg 25 mg, Intravenou s, ONCE, 1 dose, On Sat03/12/24 at 1130, Routine [facility] diazePAM (VALIUM) injection 2 mg 2023-05 15:45: 00 03-13 13:38 :00 No 2mg 2 mg, Slow IV Push, BID, First dose on Sat03/12/24 at 1045, Until Discontinu ed, Routine [facility] Potassium Bicarb-Citr ic Acid (EFFER-K) effervescen t tablet 40 mEq 2023-05 03:45: 00 03-12 03:18 :00 No 40meq 40 mEq, Oral, ONCE, 1 dose, On Sat03/11/24 at 2245, Routine [facility] amitriptyli ne (ELAVIL) tablet 25 mg 2023-05 02:00: 00 Yes 25mg 25 mg, Oral, QHS, First dose on Sat03/11/24 at 2100, Until Discontinu ed, Routine [facility] budesonide (PULMICORT RESPULE) nebulizer solution 0.25 mg 2023-05 20:30: 00 03-12 15:40 :27 No .25mg 0.25 mg, Inhalation , BID, First dose (after last modificati on) on Sat03/11/24 at 1530, Until Discontinu ed, Routine [facility] morpHINE injection 2 mg 2023-05 18:00: 00 03-11 18:18 :00 No 2mg 2 mg, Slow IV Push, ONCE, 1 dose, On Sat03/11/24 at 1300, Routine [facility] proMETHazin e (PHENERGAN) 12.5 mg in NS 50 mL IV piggyback (CNR) 2023-05 16:08: 36 03-13 06:15 :30 No 12.5mg 12.5 mg, IV Piggyback, at 200 mL/hr Administer over 15 Minutes, Q4HPRN, Starting on Sat03/11/24 at 1108, Until Sat03/13/24 at 0115, [place], Nausea and Vomiting (N/V) [facility] diphenhydrA MINE (BENADRYL) injection 25 mg 2023-05 15:45: 00 03-11 15:14 :00 No 25mg 25 mg, Intravenou s, ONCE, 1 dose, On Sat03/11/24 at 1045, Routine [facility] morphine (2 mg/mL) injection 4 mg 2023-05 13:44: 13 03-11 17:55 :50 No 4mg 4 mg, Slow IV Push, Q4HPRN, Starting on Sat03/11/24 at 0844, Until Sat03/11/24 at 1255, Routine, Pain (scale 7-10) [facility] magnesium sulfate in water 4 gram/50 mL (8 %) IV Piggyback 4 g 2023-05 13:00: 00 03-11 16:09 :00 No 4g 4 g, IV Piggyback, at 25 mL/hr Administer over 120 Minutes, ONCE, 1 dose, On Sat03/11/24 at 0800, Routine [facility] tetracyclin e (ACHROMYCIN ) capsule 500 mg 2023-05 13:00: 00 03-11 16:07 :08 No 500mg 500 mg, Oral, QID, 112 doses, First dose on Sat03/11/24 at 0800, Last dose on Sat04/07/24 at 2000, [place], Reason for Anti-Infec tive: Documented Infection, Documented Infection Site: Abdominal, Duration of Therapy: 14 days [facility] metroNIDAZO LE (FLAGYL) tablet 500 mg 2023-05 13:00: 00 03-11 16:07 :08 No 500mg 500 mg, Oral, QID, First dose on Sat03/11/24 at 0800, Until Discontinu ed, Routine, Reason for Anti-Infec tive: Documented Infection, Documented Infection Site: Abdominal, Duration of Therapy: 14 days [facility] bismuth subsalicyla te (PEPTO BISMOL) chewable tablet 524 mg 2023-05 13:00: 00 03-11 16:07 :08 No 524mg 524 mg, Oral, QID, First dose on Sat03/11/24 at 0800, Until Discontinu ed [facility] lactated ringers IV infusion 1,000 mL 2023-05 08:30: 00 03-11 16:29 :00 No 1000mL at 125 mL/hr, 1,000 mL, IV Infusion, CONTINUOUS , Starting on Sat03/11/24 at 0330, Until Sat03/11/24 at 1129, Routine [facility] trimethoben zamide (TIGAN) injection 100 mg 2023-05 05:12: 20 03-13 16:08 :09 No 100mg 100 mg, Intramuscu lar, Q6HPRN, Starting on Sat03/11/24 at 0012, Until Sat03/13/24 at 1108, Routine, Nausea and Vomiting (N/V), alternate with zofran [facility] ondansetron (ZOFRAN (PF)) injection 4 mg 2023-05 03:42: 41 03-11 16:10 :43 No 4mg 4 mg, Slow IV Push, Q6HPRN, Starting on Sat03/10/24 at 2242, Until Sat03/11/24 at 1110, [place], Nausea and Vomiting (N/V) [facility] pantoprazol e (PROTONIX) injection 40 mg 2023-05 03:30: 00 03-13 16:08 :09 No 40mg 40 mg, Slow IV Push, Q12H, First dose on Sat03/10/24 at 2230, Until Discontinu ed [facility] morpHINE injection 4 mg 2023-05 03:21: 30 03-11 13:44 :25 No 4mg 4 mg, Slow IV Push, Q4HPRN, Starting on Sat03/10/24 at 2221, Until Sat03/11/24 at 0844, Routine, Pain (scale 7-10) [facility] acetaminoph en (TYLENOL) tablet 650 mg 2023-05 03:21: 25 03-13 16:08 :09 No 650mg [facility] morpHINE injection 4 mg 2023-05 02:00: 00 03-11 01:10 :00 No 4mg 4 mg, Slow IV Push, ONCE, 1 dose, On Sat03/10/24 at 2100, STAT [facility] trimethoben zamide (TIGAN) injection 100 mg 2023-05 02:00: 00 03-11 02:05 :00 No 100mg 100 mg, Intramuscu lar, ONCE, 1 dose, On Sat03/10/24 at 2100, Routine [facility] morpHINE injection 4 mg 2023-05 21:30: 00 03-10 22:20 :00 No 4mg 4 mg, Slow IV Push, ONCE, 1 dose, On Sat03/10/24 at 1630, STAT [facility] proMETHazin e (PHENERGAN) 25 mg in NS 50 mL IV piggyback (CNR) 2023-05 21:00: 00 03-10 22:30 :00 No 25mg 25 mg, IV Piggyback, at 200 mL/hr Administer over 15 Minutes, ONCE, 1 dose, On Sat03/10/24 at 1600, [place] [facility] diphenhydrA MINE (BENADRYL) injection 25 mg 2023-05 19:00: 00 03-10 19:12 :00 No 25mg 25 mg, Slow IV Push, ONCE, 1 dose, On Sat03/10/24 at 1400, STAT [facility] ondansetron (ZOFRAN (PF)) injection 4 mg 2023-05 18:30: 00 03-10 18:34 :00 No 4mg 4 mg, Slow IV Push, ONCE, 1 dose, On Sat03/10/24 at 1330, [facility] diphenhydrA MINE:lidoca ine 2% viscous:maa lox 1:1:1 (FIRST-MOUT HWASH BLM) oral suspension 15 mL 2023-05 17:15: 00 03-10 18:34 :00 No 15mL 15 mL, Oral, ONCE, 1 dose, On Sat03/10/24 at 1215, Routine [facility] NaCl 0.9% (NS) bolus infusion 1,500 mL 2023-05 16:30: 00 03-11 00:19 :00 No 1500mL at 999 mL/hr, 1,500 mL, IV Infusion, ONCE, 1 dose, On Sat03/10/24 at 1130, [facility] morpHINE injection 4 mg 2023-05 16:30: 00 03-10 16:33 :00 No 4mg 4 mg, Slow IV Push, ONCE, 1 dose, On Sat03/10/24 at 1130, STAT [facility] ondansetron (ZOFRAN (PF)) injection 4 mg 2023-05 15:30: 00 03-10 15:54 :00 No 4mg 4 mg, Slow IV Push, ONCE, 1 dose, On Sat03/10/24 at 1030, [facility] pantoprazol e (PROTONIX) EC tablet 40 mg 2023-0525 01:00: 00 03-05 22:06 :08 No 40mg 40 mg, Oral, BID, First dose on Sat03/05/24 at 2000, Until Discontinu ed, Routine [facility] bismuth subsalicyla te (PEPTO BISMOL) chewable tablet 524 mg 2023-05 17:00: 00 03-05 22:06 :08 No 524mg 524 mg, Oral, QID, 56 doses, First dose on Sat03/05/24 at 1200, Last dose on Sat03/19/24 at 0800, Routine [facility] tetracyclin e (ACHROMYCIN ) capsule 500 mg 2023-05 13:00: 00 03-05 22:06 :08 No 500mg 500 mg, Oral, QID, 56 doses, First dose on Sat03/05/24 at 0800, Last dose on Sat03/18/24 at 2000, [place], Reason for Anti-Infec tive: Documented Infection, Documented Infection Site: Abdominal, Duration of Therapy: 14 days [facility] metroNIDAZO LE (FLAGYL) tablet 500 mg 2023-05 11:30: 00 03-05 22:06 :08 No 500mg 500 mg, Oral, Q8H, 42 doses, First dose on Sat03/05/24 at 0630, Last dose on Sat03/18/24 at 2200, Routine, Reason for Anti-Infec tive: Documented Infection, Documented Infection Site: Abdominal, Duration of Therapy: 14 days [facility] pantoprazol e (PROTONIX) injection 40 mg 2023-05 01:00: 00 03-05 16:38 :50 No 40mg 40 mg, Slow IV Push, Q12H, First dose on Sat03/04/24 at 2000, Until Discontinu ed [facility] metroNIDAZO LE 500 mg tablet 2023-05 00:00: 00 Yes [id number] 500mg Take 1 tablet by mouth 4 (four) times daily. [facility] tetracyclin e 500 mg capsule 2023-05 00:00: 00 Yes [id number] 500mg Take 1 capsule by mouth 4 (four) times daily. [facility] bismuth subsalicyla te 525 mg Tab 2023-05 00:00: 00 Yes [id number] 525mg Take 525 mg by mouth 4 (four) times daily. [facility] omeprazole 20 mg capsule 2023-05 00:00: 00 Yes [id number] 20mg Take 1 capsule by mouth in the morning and 1 capsule in the evening. [facility] ondansetron 4 mg disintegrat ing tablet 2023-05 00:00: 00 Yes [id number] 4mg Take 1 tablet by mouth every 8 (eight) hours as needed for Nausea and Vomiting (N/V). [facility] enoxaparin (LOVENOX) injection 40 mg 2023-05 22:00: 00 03-05 22:06 :08 No 40mg 40 mg, Subcutaneo us, DAILY, First dose on Sat03/04/24 at 1700, Until Discontinu ed, Routine [facility] hydrOXYzine (ATARAX) tablet 10 mg 2023-05 20:02: 48 03-05 22:06 :08 No 10mg 10 mg, Oral, Q6HPRN, Starting on Sat03/04/24 at 1502, Until Kathie 03/05/24 at 1706, Routine, Anxiety [facility] morphine (2 mg/mL) injection 4 mg 2023-05 19:15: 05 03-05 19:09 :51 No 4mg 4 mg, Slow IV Push, Q6HPRN, Starting on Sat03/04/24 at 1415, Until Kathie 03/05/24 at 1409, Routine, Pain (scale 7-10) [facility] proMETHazin e (PHENERGAN) 12.5 mg in NS 50 mL IV piggyback (CNR) 2023-05 19:13: 41 03-05 22:06 :08 No 12.5mg 12.5 mg, IV Piggyback, at 200 mL/hr Administer over 15 Minutes, Q4HPRN, Starting on Sat03/04/24 at 1413, Until Kathie 03/05/24 at 1706, Routine, N/V unresponsi ve to Ondansetro n [facility] ondansetron (ZOFRAN (PF)) injection 4 mg 2023-05 19:10: 57 03-05 22:06 :08 No 4mg 4 mg, Slow IV Push, Q6HPRN, Starting on Sat03/04/24 at 1410, Until Sat03/05/24 at 1706, Routine, Nausea and Vomiting (N/V) [facility] HYDROcodone -acetaminop hen (NORCO 5) tablet 1 tablet 2023-05 19:10: 38 03-05 22:06 :08 No 1{tbl} 1 tablet, Oral, Q6HPRN, Starting on Sat03/04/24 at 1410, Until Sat03/05/24 at 1706, Routine, Pain (scale 4-6) [facility] acetaminoph en (TYLENOL) tablet 650 mg 2023-05 19:10: 34 03-05 22:06 :08 No 650mg [facility] morphine (2 mg/mL) injection 4 mg 2023-05 16:15: 00 03-04 16:19 :00 No 4mg 4 mg, Slow IV Push, ONCE, 1 dose, On Sat03/04/24 at 1115, [place] [facility] ondansetron (ZOFRAN (PF)) injection 4 mg 2023-05 16:15: 00 03-04 16:19 :00 No 4mg 4 mg, Slow IV Push, ONCE, 1 dose, On Sat03/04/24 at 1115[facility] ([facility] 4 mg 2023-05 13:15: 00 03-04 13:57 :00 No 4mg 4 mg, Slow IV Push, ONCE, 1 dose, On Sat03/04/24 at 0815, STAT [facility] pantoprazol e (PROTONIX) injection 40 mg 2023-05 13:15: 00 03-04 14:04 :00 No 40mg 40 mg, Slow IV Push, ONCE, 1 dose, On Sat03/04/24 at 0815 [facility] NaCl 0.9% (NS) bolus infusion 1,000 mL 2023-05 13:15: 00 03-04 16:51 :00 No 1000mL at 999 mL/hr, 1,000 mL, IV Infusion, ONCE, 1 dose, On Sat03/04/24 at 0815, [place] [facility] ondansetron (ZOFRAN (PF)) injection 4 mg 2023-05 12:15: 00 03-04 13:56 :00 No 4mg 4 mg, Slow IV Push, ONCE, 1 dose, On Sat03/04/24 at 0715, [place] [facility] escitalopra m oxalate 20 mg tablet 2023-05 00:00: 00 Yes 20mg Take 1 tablet by mouth in the morning. [facility] eszopiclone 3 mg tablet 2023-05 00:00: 00 Yes 3mg Take 1 tablet by mouth at bedtime. [facility] bismuth subsalicyla te 525 mg Tab 2023-05 00:00: 00 03-05 00:00 :00 No [id number] 525mg Take 525 mg by mouth 4 (four) times daily for 14 days. [facility] metroNIDAZO LE 500 mg tablet 2023-05 00:00: 00 03-05 00:00 :00 No [id number] 500mg Take 1 tablet by mouth 4 (four) times daily for 14 days. [facility] tetracyclin e 500 mg capsule 2023-05 00:00: 00 03-05 00:00 :00 No [id number] 500mg Take 1 capsule by mouth 4 (four) times daily for 14 days. [facility] omeprazole 20 mg capsule 2023-05 00:00: 00 03-05 00:00 :00 No [id number] 20mg Take 1 capsule by mouth in the morning and 1 capsule in the evening. Do all this for 14 days. [facility] pantoprazol e (PROTONIX) EC tablet 40 mg 2023-05 16:45: 00 02-26 23:59 :22 No 40mg 40 mg, Oral, BID, First dose (after last modificati on) on Kathie 02/27/24 at 1145, Until Discontinu ed, Routine [facility] lactated ringers IV infusion 2023-05 15:19: 00 02-26 15:26 :52 No IV Infusion, CONTINUOUS PRN, Starting on Kathie 02/27/24 at 1019, Until Kathie 02/27/24 at 1026, Routine, Intra-op [facility] simethicone (GAS RELIEF (SIMETHICON E)) 40 mg/0.6 mL drops 2023-05 14:57: 00 02-26 16:34 :28 No PRN, Starting on Kathie 02/27/24 at 0957, Until Kathie 02/27/24 at 1134, Routine, Intra-op [facility] PHENYLephri ne 1000 mcg/10 mL in 0.9% NaCl syringe 2023-05 14:50: 00 02-26 15:26 :52 No Intravenou s, ONCE INTRA PROCEDURE, Starting on Kathie 02/27/24 at 0950, Until Kathie 02/27/24 at 1026, Routine, Intra-op [facility] dexmedeTOMI Dine (PRECEDEX) injection 2023-05 14:27: 00 02-26 15:26 :52 No Intravenou s, ONCE INTRA PROCEDURE, Starting on Kathie 02/27/24 at 0927, Until Kathie 02/27/24 at 1026, Routine, Intra-op [facility] propofoL IV infusion 2023-05 14:26: 00 02-26 15:26 :52 No IV Infusion, ONCE INTRA PROCEDURE, Starting on Kathie 02/27/24 at 0926, Until Kathie 02/27/24 at 1026, Routine, Intra-op [facility] lidocaine 1% (XYLOCAINE) 100 mg/10 mL (1 %) injection 2023-05 14:26: 00 02-26 15:26 :52 No Intravenou s, ONCE INTRA PROCEDURE, Starting on Kathie 02/27/24 at 0926, Until Kathie 02/27/24 at 1026, Routine, Intra-op [facility] FENTanyl (PF) (SUBLIMAZE) injection 2023-05 14:26: 00 02-26 15:26 :52 No Intravenou s, ONCE INTRA PROCEDURE, Starting on Sat02/27/24 at 0926, Until [place]ie 02/27/24 at 1026, Routine, Intra-op [facility] midazolam (VERSED) injection 2023-05 14:24: 00 02-26 15:26 :52 No IV Push, ONCE INTRA PROCEDURE, Starting on Kathie 02/27/24 at 0924, Until Kathie 02/27/24 at 1026, Routine, Intra-op [facility] NaCl 0.9% (NS) IV infusion 2023-05 14:22: 00 02-26 15:26 :52 No IV Infusion, CONTINUOUS PRN, Starting on Kathie 02/27/24 at 0922, Until Kathie 02/27/24 at 1026, Routine, Intra-op [facility] sodium phosphates (READY-TO-U SE ENEMA) 19-7 gram/118 mL enema 1 Enema 2023-05 10:00: 00 02-26 10:05 :00 No 1{enema } 1 Enema, Rectal, ONCE, 1 dose, On Sat02/27/24 at 0500, Routine [facility] polyethylen e glycol 3350 powder 17 g 2023-05 01:00: 00 02-26 21:59 :19 No 17g 17 g, Oral, BID, First dose (after last modificati on) on Sat02/26/24 at 2000, Until Discontinu ed, Routine [facility] ondansetron 4 mg disintegrat ing tablet 2023-05 00:00: 00 03-05 00:00 :00 No [id number] 4mg Take 1 tablet by mouth every 8 (eight) hours as needed for Nausea and Vomiting (N/V). [facility] pantoprazol e 40 mg EC tablet 2023-05 00:00: 00 03-05 00:00 :00 No [id number] 40mg Take 1 tablet by mouth in the morning and 1 tablet in the evening. [facility] amitriptyli ne 25 mg tablet 2023-05 00:00: 00 03-04 00:00 :00 No [id number] 25mg Take 1 tablet by mouth at bedtime. [facility] acetaminoph en-codeine 300-30 mg tablet 2023-05 00:00: 00 02-26 00:00 :00 No [id number] 1{tbl} Take 1 tablet by mouth every 4 (four) hours as needed for Pain (scale 7-10) for up to 7 days. Indication s: acute pain [facility] simethicone (GAS RELIEF (SIMETHICON E)) chewable tablet 80 mg 2023-05 23:00: 00 02-26 21:59 :19 No 80mg 80 mg, Oral, PC+HS, First dose on Sat02/26/24 at 1800, Until Discontinu ed, Routine [facility] morphine (2 mg/mL) injection 2 mg 2023-05 20:22: 36 02-26 21:59 :19 No 2mg 2 mg, Slow IV Push, Q4HPRN, Starting on Sat02/26/24 at 1522, Until Kathie 02/27/24 at 1659, Routine, Pain (scale 4-6) [facility] morphine (2 mg/mL) injection 4 mg 2023-05 20:22: 32 02-26 21:59 :19 No 4mg 4 mg, Slow IV Push, Q4HPRN, Starting on Sat02/26/24 at 1522, Until Kathie 02/27/24 at 1659, Routine, Pain (scale 7-10) [facility] LORazepam (ATIVAN) injection 0.5 mg 2023-05 18:39: 21 02-26 21:59 :19 No .5mg 0.5 mg, Slow IV Push, Q6HPRN, Starting on Sat02/26/24 at 1339, Until Kathie 02/27/24 at 1659, Routine, Anxiety [facility] bisacodyL (DULCOLAX) suppository 10 mg 2023-0516 18:17: 00 02-25 18:47 :00 No 10mg 10 mg, Rectal, ONCE NOW, 1 dose, On Sat02/26/24 at 1330, Routine [facility] acetaminoph en (OFIRMEV) IV piggyback 1,000 mg 2023-05 15:30: 00 02-25 15:03 :00 No 1000mg 1,000 mg, IV Piggyback, at 400 mL/hr Administer over 15 Minutes, ONCE, 1 dose, On Sat02/26/24 at 1030, Routine, Is the patient strict NPO and unable to tolerate oral medication s? Yes [facility] bisacodyL (DULCOLAX) tablet 5 mg 2023-05 14:30: 00 02-26 21:59 :19 No 5mg 5 mg, Oral, DAILY, First dose on Sat02/26/24 at 0930, Until Discontinu ed, Routine [facility] amitriptyli ne (ELAVIL) tablet 25 mg 2023-05 02:00: 00 02-26 23:59 :22 No 25mg 25 mg, Oral, QHS, First dose on Sat02/25/24 at 2100, Until Discontinu ed, Routine [facility] morphine (2 mg/mL) injection 4 mg 2023-05 18:49: 53 02-25 14:28 :08 No 4mg 4 mg, Slow IV Push, Q4HPRN, Starting on Sat02/25/24 at 1349, Until Sat02/26/24 at 0928, Routine, Pain (scale 7-10) [facility] morphine (2 mg/mL) injection 2 mg 2023-0515 18:49: 15 02-25 14:28 :08 No 2mg 2 mg, Slow IV Push, Q4HPRN, Starting on Sat02/25/24 at 1349, Until Sat02/26/24 at 0928, Routine, Pain (scale 7-10) [facility] gadobenate dimeglumine (MULTIHANCE -10 mL) injection 9.08 mL 2023-05 17:30: 00 02-24 17:30 :00 No [id number] .2mL/kg 9.08 mL (0.2 mL/kg ?45.4 kg), Intravenou s, ONCE, 1 dose, On Sat02/25/24 at 1230, Routine [facility] LORazepam (ATIVAN) injection 1 mg 2023-05 17:00: 00 02-24 16:25 :00 No 1mg 1 mg, Slow IV Push, ONCE, 1 dose, On Sat02/25/24 at 1200, STAT [facility] polyethylen e glycol 3350 powder 17 g 2023-05 16:00: 00 02-25 14:24 :01 No 17g 17 g, Oral, DAILY, First dose on Sat02/25/24 at 1100, Until Discontinu ed, Routine [facility] lactated ringers IV infusion 1,000 mL 2023-05 13:15: 00 02-26 21:59 :19 No 1000mL at 125 mL/hr, 1,000 mL, IV Infusion, CONTINUOUS , Starting on Sat02/25/24 at 0815, Until Sat02/27/24 at 1659, Routine [facility] potassium chloride in water (KCL) 20 mEq/100 mL IV infusion 20 mEq 2023-05 13:00: 00 02-24 13:30 :00 No 20meq 20 mEq, IV Infusion, at 50 mL/hr Administer over 2 Hours, ONCE, 1 dose, On Sat02/25/24 at 0800, Routine [facility] melatonin (MELATIN) tablet 3 mg 2023-05 02:00: 00 02-26 21:59 :19 No 3mg 3 mg, Oral, QHS, First dose on Sat02/24/24 at 2100, Until Discontinu ed, Routine [facility] lactated ringers IV infusion 500 mL 2023-05 19:30: 00 02-24 09:54 :00 No 500mL at 999 mL/hr, 500 mL, IV Infusion, ONCE, 1 dose, On Sat02/24/24 at 1430, Routine [facility] Lidocaine (LIDOCARE) 4 % patch 1 Patch 2023-05 18:00: 00 02-24 05:15 :00 No 1{patch } 1 Patch, Topical, Administer over 12 Hours, ONCE, 1 dose, On Sat02/24/24 at 1300, Routine [facility] LORazepam (ATIVAN) injection 0.5 mg 2023-05 12:25: 30 02-25 18:39 :43 No .5mg 0.5 mg, Slow IV Push, Q6HPRN, Starting on Sat02/24/24 at 0725, Until Sat02/26/24 at 1339, Routine, Anxiety, Agitation [facility] diphenhydrA MINE (BENADRYL) injection 25 mg 2023-05 01:40: 29 02-23 14:54 :01 No 25mg 25 mg, Intravenou s, Q6HPRN, Starting on Sat02/23/24 at 2040, Until Sat02/24/24 at 0954, Routine, Nausea and Vomiting (N/V) [facility] LORazepam (ATIVAN) injection 0.5 mg 2023-05 01:39: 00 02-23 02:48 :00 No .5mg 0.5 mg, Slow IV Push, ONCE, 1 dose, On Sat02/23/24 at 2045, Routine [facility] diphenhydrA MINE (BENADRYL) injection 25 mg 2023-05 14:19: 13 02-23 01:14 :28 No 25mg 25 mg, Intravenou s, Q6HPRN, Starting on Sat02/23/24 at 0919, Until Sat02/23/24 at 2014, Routine, Nausea and Vomiting (N/V) [facility] ondansetron (ZOFRAN (PF)) injection 4 mg 2023-05 14:18: 38 02-26 21:59 :19 No 4mg 4 mg, Slow IV Push, Q6HPRN, Nausea and Vomiting (N/V), Starting on 02/23/24 at 0918, Doses of ondansetro n 16 mg and above need to be administer ed via IV piggyback. For Dose >=24mg ECG monitoring is advisable. [facility] pantoprazol e (PROTONIX) injection 40 mg 2023-05 11:53: 00 02-25 19:46 :39 No 40mg 40 mg, Slow IV Push, Q24H, First dose (after last modificati on) on 02/23/24 at 0700, Until Discontinu ed [facility] cariprazine (VRAYLAR) 1.5 mg capsule 2023-05 09:24: 25 Yes 1.5mg Take 1 capsule by mouth in the morning. [facility] LORazepam 0.5 mg tablet 2023-05 09:24: 25 Yes .5mg Take 1 tablet by mouth. [facility] diphenhydrA MINE (BENADRYL) injection 25 mg 2023-05 03:57: 18 02-22 14:19 :23 No 25mg 25 mg, Intravenou s, Q4HPRN, Starting on 02/22/24 at 2257, Until 02/23/24 at 0919, Routine, Nausea and Vomiting (N/V) [facility] heparin (porcine) injection 5,000 Units 2023-05 01:00: 00 02-26 21:59 :19 No 5000U 5,000 Units, Subcutaneo us, Q12H, First dose on 02/22/24 at 2000, Until Discontinu ed, Routine [facility] morphine (2 mg/mL) injection 4 mg 2023-05 19:33: 18 02-24 15:57 :38 No 4mg 4 mg, Slow IV Push, Q4HPRN, Starting on 02/22/24 at 1433, Until 02/25/24 at 1057, Routine, Pain (scale 7-10) [facility] proMETHazin e (PHENERGAN) 25 mg in NS 50 mL IV piggyback (CNR) 2023-05 19:33: 05 02-22 14:19 :00 No 25mg 25 mg, IV Piggyback, at 200 mL/hr Administer over 15 Minutes, Q4HPRN, Starting on 02/22/24 at 1433, Until 02/23/24 at 0919, [place], Nausea and Vomiting (N/V) [facility] metoprolol tartrate 50 mg tablet 2023-05 19:26: 59 02-26 00:00 :00 No 50mg Take 1 tablet by mouth in the morning and 1 tablet in the evening. [facility] escitalopra m oxalate (LEXAPRO) 10 mg tablet 2023-05 19:26: 59 02-26 00:00 :00 No 10mg Take 1 tablet by mouth in the morning. [facility] morphine (2 mg/mL) injection 4 mg 2023-05 17:45: 00 02-21 18:20 :00 No 4mg 4 mg, Slow IV Push, ONCE, 1 dose, On 02/22/24 at 1245, STAT [facility] proMETHazin e (PHENERGAN) 25 mg in NS 50 mL IV piggyback (CNR) 2023-05 16:45: 00 02-21 17:33 :00 No 25mg 25 mg, IV Piggyback, at 200 mL/hr Administer over 15 Minutes, ONCE, 1 dose, On 02/22/24 at 1145, [place] [facility] morphine (2 mg/mL) injection 4 mg 2023-05 16:00: 00 02-21 16:06 :00 No 4mg 4 mg, Slow IV Push, ONCE, 1 dose, On 02/22/24 at 1100, STAT [facility] famotidine (PEPCID (PF)) injection 20 mg 2023-05 15:00: 00 02-21 15:35 :00 No 20mg 20 mg, Slow IV Push, ONCE, 1 dose, On 02/22/24 at 1000, [place] [facility] ondansetron (ZOFRAN (PF)) injection 4 mg 2023-05 15:00: 00 02-21 15:34 :00 No 4mg 4 mg, Slow IV Push, ONCE, 1 dose, On 02/22/24 at 1000, [place] [facility] NaCl 0.9% (NS) bolus infusion 1,000 mL 2023-05 15:00: 00 02-21 18:06 :00 No 1000mL at 999 mL/hr, 1,000 mL, IV Infusion, ONCE, 1 dose, On 02/22/24 at 1000, STAT [facility] buPROPion XL 150 mg 24 hr tablet 01-22 00:00: 00 Yes 150mg Take 1 tablet by mouth every morning. [facility] cholestyram ine 4 gram powder 01-20 00:00: 00 Yes MIX AND DRINK 1 SCOOP BY MOUTH DAILY [facility] busPIRone 7.5 mg tablet 01-19 00:00: 00 Yes 7.5mg Take 1 tablet by mouth in the morning and 1 tablet in the evening. [facility] metoprolol tartrate 50 mg tablet 08-25 11:55: 42 Yes 50mg Take 1 tablet by mouth in the morning and 1 tablet in the evening. [facility] escitalopra m oxalate (LEXAPRO) 10 mg tablet 08-25 11:55: 42 Yes 10mg Take 1 tablet by mouth in the morning. [facility] divalproex ER 250 mg 24 hr tablet 08-23 00:00: 00 11-22 04:59 :00 No [id number] 250mg Take 1 tablet by mouth in the morning and 1 tablet in the evening. Do all this for 90 days. [facility] acetaminoph en-codeine 300-30 mg tablet 08-23 00:00: 00 08-31 04:59 :00 No [id number] 1{tbl} Take 1 tablet by mouth every 6 (six) hours as needed for Pain (scale 4-6) or Pain (scale 7-10) for up to 7 days. Indication s: acute pain [facility] cefTRIAXone (ROCEPHIN) 1,000 mg in NaCl 0.9% (NS) 100 mL MINI-BAG 05-19 16:45: 00 05-19 17:24 :00 No 1000mg 1,000 mg, IV Piggyback, ONCE, 1 dose, On Sat05/19/23 at 1045, Administer over 30 Minutes, 100 mL
Reas on for Anti-Infec tive: Documented Infection< br>Documen renata Infection Site: Urine
D uration of Therapy: Other (see Comments) [facility] morpHINE (4 mg/mL) injection 4 mg 05-19 16:45: 00 05-19 16:53 :00 No 4mg 4 mg, Slow IV Push, ONCE, 1 dose, On Sat05/19/23 at 1045, STAT [facility] NaCl 0.9% (NS) bolus infusion 1,000 mL 05-19 16:00: 00 05-19 17:00 :00 No 1000mL at 999 mL/hr, 1,000 mL, IV Infusion, ONCE, 1 dose, On Sat05/19/23 at 1000, [place] [facility] iopamidol (ISOVUE 370-500 mL) injection 80 mL 05-19 15:50: 00 05-19 16:15 :00 No [id number] 80mL 80 mL, Intravenou s, ONCE, 1 dose, On Sat05/19/23 at 1015, Routine [facility] dicyclomine (BENTYL) tablet 20 mg 05-19 15:45: 00 05-19 16:09 :00 No 20mg 20 mg, Oral, ONCE, 1 dose, On Sat05/19/23 at 0945, [place] [facility] ondansetron (ZOFRAN (PF)) injection 4 mg 05-19 15:15: 00 05-19 15:50 :00 No 4mg 4 mg, Slow IV Push, ONCE, 1 dose, On 05/19/23 at 0915, [place] [facility] maalox:diph enhydrAMINE :lidocaine 2 % viscous 1:1:1 (FIRST-MOUT HWASH BLM) oral suspension 15 mL 05-19 15:15: 00 05-19 15:49 :00 No 15mL 15 mL, Oral, ONCE, 1 dose, On 05/19/23 at 0915, Routine [facility] famotidine (PEPCID (PF)) injection 20 mg 05-19 15:15: 00 05-19 15:51 :00 No 20mg 20 mg, Slow IV Push, ONCE, 1 dose, On 05/19/23 at 0915[facility] mg disintegrat ing tablet 05-19 00:00: 00 02-26 00:00 :00 No [id number] 4mg Take 1 tablet by mouth every 8 (eight) hours as needed for Nausea and Vomiting (N/V). [facility] sucralfate 1 gram tablet 05-19 00:00: 00 06-19 05:59 :00 No [id number] 1g Take 1 tablet by mouth before meals and at bedtime for 30 days. [facility] pantoprazol e 40 mg EC tablet 05-19 00:00: 00 06-19 05:59 :00 No [id number] 40mg Take 1 tablet by mouth in the morning for 30 days. [facility] cefdinir 300 mg capsule 05-19 00:00: 00 05-27 05:59 :00 No [id number] 300mg Take 1 capsule by mouth every 12 (twelve) hours for 7 days. [facility] morpHINE (2 mg/mL) injection 2 mg 01-15 19:15: 00 01-15 18:49 :00 No 2mg 2 mg, Slow IV Push, ONCE, 1 dose, On Sat01/15/23 at 1415, Routine [facility] ondansetron (ZOFRAN) tablet 4 mg 01-15 18:15: 00 01-15 22:02 :00 No 4mg 4 mg, Oral, ONCE, 1 dose, On Sat01/15/23 at 1315, [facility]ine [facility] [place] [place] ondansetron 4 mg tablet 01-15 00:00: 00 02-26 00:00 :00 No [id number] 4mg Take 1 tablet by mouth every 8 (eight) hours as needed for Nausea and Vomiting (N/V). [facility] HYDROcodone -acetaminop hen 5-325 mg tablet 01-15 00:00: 00 01-23 04:59 :00 No [id number] 1{tbl} Take 1 tablet by mouth every 4 (four) hours as needed for Pain (scale 4-6) for up to 7 days. Indication s: acute pain [facility] morpHINE (2 mg/mL) injection 2 mg 01-14 16:11: 23 01-15 11:49 :59 No 2mg 2 mg, Slow IV Push, Q4HPRN, Starting on Sat01/14/23 at 1111, Until Sat01/15/23 at 0649, Routine, Pain (scale 7-10) [facility] methocarbam oL (ROBAXIN) tablet 500 mg 01-14 13:00: 00 Yes 500mg 500 mg, Oral, QID, First dose on Sat01/14/23 at 0800, Until Discontinu ed, Routine [facility] celecoxib (CELEBREX) capsule 100 mg 01-14 13:00: 00 Yes 100mg 100 mg, Oral, BID MEALS, First dose on Sat01/14/23 at 0800, Until Discontinu ed, Routine [facility] gabapentin (NEURONTIN) capsule 300 mg 01-14 01:30: 00 Yes 300mg 300 mg, Oral, TID, First dose on Sat01/13/23 at 2030, Until Discontinu ed, Routine [facility] [place] [place] acetaminoph en (TYLENOL) tablet 1,000 mg 01-14 01:30: 00 Yes 1000mg 1,000 mg, Oral, Q8H, First dose (after last modificati on) on Sat01/13/23 at 2030, Until Discontinu ed, Routine [facility] scopolamine transdermal (TRANSDERM- SCOP) patch 1.5 mg 01-13 00:30: 00 Yes 1.5mg 1.5 mg, Topical, Administer over 72 Hours, Q72H, First dose on Sat01/12/23 at 1930, Until Discontinu ed, Routine [facility] enoxaparin (LOVENOX) injection 40 mg 01-12 22:00: 00 Yes 40mg 40 mg, Subcutaneo us, DAILY, First dose on Sat01/12/23 at 1700, Until Discontinu ed, Routine [facility] FENTanyl PF (SUBLIMAZE (PF)) injection 100 mcg 01-12 20:30: 00 01-12 20:30 :00 No [id number] 100ug 100 mcg, Slow IV Push, ONCE, 1 dose, On Sat01/12/23 at 1530, Routine [facility] proMETHazin e (PHENERGAN) 25 mg in NS 50 mL IV piggyback (CNR) 01-12 17:11: 31 01-15 14:12 :44 No 25mg 25 mg, IV Piggyback, at 200 mL/hr Administer over 15 Minutes, Q4HPRN, Starting on Sat01/12/23 at 1211, Until Sat01/15/23 at 0912, Routine, Nausea and Vomiting (N/V) [facility] piperacilli n-tazobacta m (ZOSYN) 3.375 [...] br>Duratio n of Therapy: 7 days [facility] pantoprazol e (PROTONIX) EC tablet 40 mg 01-12 14:00: 00 Yes 40mg 40 mg, Oral, DAILY, First dose on 01/12/23 at 0900, Until Discontinu ed, Routine [facility] KCL (KLOR-CON M20) tablet 40 mEq 01-12 09:30: 00 01-12 09:25 :00 No 40meq 40 mEq, Oral, ONCE, 1 dose, On 01/12/23 at 0430, Routine [facility] diphenhydrA MINE (BENADRYL) tablet 25 mg 01-12 08:31: 43 Yes 25mg 25 mg, Oral, QHSPRN, Starting on 01/12/23 at 0331, Until Discontinu ed, Routine, Itching, Sleep [facility] lactated ringers IV infusion 1,000 mL 01-12 08:15: 00 01-15 11:48 :29 No 1000mL at 50 mL/hr, 1,000 mL, IV Infusion, CONTINUOUS , Starting on 01/12/23 at 0315, Until 01/15/23 at 0648, Routine [facility] piperacilli n-tazobacta m (ZOSYN) 3.375 g in NaCl 0.9% (NS) 100 mL MINI-BAG 01-12 06:45: 00 01-12 08:43 :00 No 3.375g 3.375 g, IV Piggyback, ONCE, 1 dose, On 01/12/23 at 0145, Administer over 30 Minutes, 100 mL
Reas on for Anti-Infec tive: Documented Infection< br>Documen renata Infection Site: Abdominal< br>Duratio n of Therapy: 7 days [facility] lactated ringers IV infusion 1,000 mL 01-12 06:00: 00 01-12 08:13 :38 No 1000mL at 100 mL/hr, 1,000 mL, IV Infusion, CONTINUOUS , Starting on 01/12/23 at 0100, Until 01/12/23 at 0313, Routine [facility] morpHINE (4 mg/mL) injection 4 mg 01-12 05:49: 22 01-14 05:48 :22 No 4mg 4 mg, Slow IV Push, Q4HPRN, Starting on 01/12/23 at 0049, Until 01/14/23 at 0048, Routine, Pain (scale 7-10) [facility] HYDROcodone -acetaminop hen (NORCO 5) 5-325 mg tablet 1 tablet 01-12 05:49: 18 Yes 1{tbl} 1 tablet, Oral, Q4HPRN, Starting on 01/12/23 at 0049, Until Discontinu ed, Routine, Pain (scale 4-6) [facility] ondansetron (ZOFRAN (PF)) injection 4 mg 01-12 05:49: 11 01-15 17:31 :12 No 4mg 4 mg, Slow IV Push, Q6HPRN, Starting on 01/12/23 at 0049, Until 01/15/23 at 1231, Routine, Nausea and Vomiting (N/V) [facility] ondansetron (ZOFRAN (PF)) injection 4 mg 01-12 04:45: 00 01-12 04:45 :00 No 4mg 4 mg, Slow IV Push, ONCE, 1 dose, On Sat01/11/23 at 2345, [place] [facility] morpHINE (4 mg/mL) injection 4 mg 01-12 04:45: 00 01-12 04:45 :00 No 4mg 4 mg, Slow IV Push, ONCE, 1 dose, On Sat01/11/23 at 2345, STAT [facility] proMETHazin e (PHENERGAN) 25 mg in NS 50 mL IV piggyback (CNR) 01-12 04:45: 00 01-12 06:00 :00 No 25mg 25 mg, IV Piggyback, at 200 mL/hr Administer over 15 Minutes, ONCE, 1 dose, On Sat01/11/23 at 2345, [facility] iopamidol (ISOVUE 370-500 mL) injection 80 mL 01-12 03:33: 00 01-12 03:25 :00 No [id number] 80mL 80 mL, Intravenou s, ONCE, 1 dose, On Sat01/11/23 at 2245, Routine [facility] maalox:diph enhydrAMINE :lidocaine 2 % viscous 1:1:1 (FIRST-MOUT HWASH BLM) oral suspension 15 mL 01-12 03:30: 00 01-12 03:07 :00 No 15mL 15 mL, Oral, ONCE, 1 dose, On Sat01/11/23 at 2230, Routine [facility] morpHINE (4 mg/mL) injection 4 mg 01-12 03:30: 00 01-12 03:05 :00 No 4mg 4 mg, Slow IV Push, ONCE, 1 dose, On Sat01/11/23 at 2230, [facility] NaCl 0.9% (NS) bolus infusion 1,000 mL 01-12 03:30: 00 01-12 03:04 :00 No 1000mL at 999 mL/hr, 1,000 mL, IV Infusion, ONCE, 1 dose, On Sat01/11/23 at 2230, [facility] ondansetron (ZOFRAN (PF)) injection 4 mg 01-12 03:00: 00 01-12 03:05 :00 No 4mg 4 mg, Slow IV Push, ONCE, 1 dose, On Sat01/11/23 at 2200, [facility] ibuprofen (IBU) tablet 600 mg 11-21 22:15: 00 11-21 21:44 :00 No 600mg 600 mg, Oral, ONCE, 1 dose, On Sat11/21/22 at 1715, [facility] butalbital- acetaminoph en-caff (ESGIC) 50-325-40 mg tablet 1 tablet 11-21 21:30: 00 11-21 21:39 :00 No 1{tbl} 1 tablet, Oral, ONCE, 1 dose, On Sat11/21/22 at 1630, [place] [facility] ciprofloxac in HCl 500 mg tablet 11-11 00:00: 00 02-26 00:00 :00 No TAKE 1 TABLET BY MOUTH EVERY 12 HOURS FOR 7 DAYS [facility] methocarbam oL 750 mg tablet 11-07 00:00: 00 Yes 750mg Take 1 tablet by mouth 2 (two) times daily as needed. [facility] methocarbam oL 750 mg tablet 11-07 00:00: 00 02-26 00:00 :00 No 1{tbl} Take 1 tablet by mouth 2 (two) times daily as needed. [facility] baclofen 10 mg tablet 10-27 00:00: 00 Yes 10mg Take 1 tablet by mouth every 6 (six) hours as needed. [facility] baclofen 10 mg tablet 10-27 00:00: 00 02-26 00:00 :00 No 1{tbl} Take 1 tablet by mouth every 6 (six) hours as needed. [facility] tiZANidine 4 mg tablet 14 00:00: 00 Yes 4mg Take 1 tablet by mouth every 6 (six) hours as needed. [facility] tiZANidine 4 mg tablet 14 00:00: 00 02-26 00:00 :00 No 1{tbl} Take 1 tablet by mouth every 6 (six) hours as needed. [facility] traZODone 50 mg tablet 10-22 00:00: 00 Yes 50mg Take 1 tablet by mouth at bedtime. [facility] traZODone 50 mg tablet 10-22 00:00: 00 02-26 00:00 :00 No 1{tbl} Take 1 tablet by mouth at bedtime. [facility] hydrOXYzine 50 mg tablet 10-02 00:00: 00 Yes 50mg Take 1 tablet by mouth every 6 (six) hours as needed. [facility] hydrOXYzine 50 mg tablet 10-02 00:00: 00 02-26 00:00 :00 No 1{tbl} Take 1 tablet by mouth every 6 (six) hours as needed. [facility] mirtazapine 15 mg tablet 12 00:00: 00 02-26 00:00 :00 No 15mg Take 1 tablet by mouth at bedtime. [facility] meloxicam 15 mg tablet 09-18 00:00: 00 Yes 15mg Take 1 tablet by mouth in the morning. [facility] meloxicam 15 mg tablet 09-18 00:00: 00 02-26 00:00 :00 No 1{tbl} Take 1 tablet by mouth in the morning. [facility] verapamil SR 120 mg ER tablet 08 00:00: 00 Yes 120mg Take 1 tablet by mouth in the morning. [facility] verapamil SR 120 mg ER tablet 09-17 00:00: 00 02-26 00:00 :00 No 1{tbl} Take 1 tablet by mouth in the morning. [facility] OLANZapine 10 mg tablet 09-06 00:00: 00 02-26 00:00 :00 No 10mg Take 1 tablet by mouth in the morning. [facility] cloNIDine 0.1 mg tablet 09-06 00:00: 00 02-26 00:00 :00 No TAKE 1-2 TABLETS BY MOUTH AT BEDTIME NEEDED FOR SLEEP AND ANXIETY [facility] NaCl 0.9% (NS) bolus infusion 1,000 mL 09-05 18:15: 00 09-05 18:08 :00 No 1000mL at 999 mL/hr, 1,000 mL, IV Infusion, ONCE, 1 dose, On Sat09/05/22 at 1315, STAT [facility] acetaminoph en (TYLENOL) tablet 650 mg 09-05 17:30: 00 09-05 17:24 :00 No 650mg 650 mg, Oral, ONCE, 1 dose, On Sat09/05/22 at 1230, [facility] ondans[facility] (ZOFRAN (PF)) [facility] 4 mg 09-05 17:15: 00 09-05 17:23 :00 No 4mg 4 mg, Slow IV Push, ONCE, 1 dose, On Sat09/05/22 at 1215, [facility] magnesium sulfate in water 2 gram/50 mL (4 %) infusion 2 g 09-05 16:15: 00 09-05 16:10 :00 No 2g 2 g, IV Piggyback, Administer over 30 Minutes, ONCE, 1 dose, On Sat09/05/22 at 1115, Routine [facility] diphenhydrA MINE (BENADRYL) injection 25 mg 09-05 16:00: 00 09-05 16:01 :00 No 25mg 25 mg, Slow IV Push, ONCE, 1 dose, On Sat09/05/22 at 1100, STAT [facility] ketorolac (TORADOL) injection 30 mg 09-05 15:30: 00 09-05 14:38 :00 No 30mg 30 mg, Slow IV Push, ONCE, 1 dose, On Sat09/05/22 at 1030, Routine [facility] NaCl 0.9% (NS) bolus infusion 1,000 mL 09-05 15:00: 00 09-05 17:12 :00 No 1000mL at 999 mL/hr, 1,000 mL, IV Infusion, ONCE, 1 dose, On Sat09/05/22 at 1000, STAT [facility] methylpredn isolone sod succ (SOLU-MEDRO L) injection 125 mg 09-05 14:45: 00 09-05 14:35 :00 No 125mg 125 mg, Intravenou s, ONCE, 1 dose, On Sat09/05/22 at 0945, 2 mL [facility] butalbital- acetaminoph en-caff (ESGIC) 50-325-40 mg tablet 1 tablet 09-05 14:00: 00 09-05 14:34 :00 No 1{tbl} 1 tablet, Oral, ONCE, 1 dose, On Sat09/05/22 at 0900, [place] [facility] diphenhydrA MINE (BENADRYL) injection 25 mg 09-05 14:00: 00 09-05 14:39 :00 No 25mg 25 mg, Slow IV Push, ONCE, 1 dose, On Sat09/05/22 at 0900, STAT [facility] proMETHazin e (PHENERGAN) 12.5 mg in NaCl 0.9% (NS) 50 mL IV piggyback 09-05 14:00: 00 09-05 14:40 :00 No 12.5mg 12.5 mg, IV Piggyback, ONCE, 1 dose, On Sat09/05/22 at 0900, [place] [facility] carvediloL 25 mg tablet 09-05 00:00: 00 02-26 00:00 :00 No [id number] 25mg Take 1 tablet by mouth in the morning and 1 tablet in the evening. Take with meals. [facility] losartan 50 mg tablet 09-05 00:00: 00 02-26 00:00 :00 No [id number] 50mg Take 1 tablet by mouth in the morning and 1 tablet in the evening. [facility] ibuprofen 800 mg tablet 08-05 00:00: 00 02-26 00:00 :00 No 800mg Take 1 tablet by mouth 3 (three) times daily as needed. [facility] cyclobenzap rine 10 mg tablet 08-05 00:00: 00 02-26 00:00 :00 No 10mg Take 1 tablet by mouth 3 (three) times daily as needed. [facility] maalox:diph enhydrAMINE :lidocaine 2 % viscous 1:1:1 ([facility]) oral suspension 15 mL 08-01 00:45: 00 08-01 00:44 :00 No 15mL 15 mL, Oral, ONCE, 1 dose, On Sat07/31/22 at 1945, [place] [facility] ketorolac (TORADOL) injection 15 mg 08-01 00:15: 00 08-01 00:44 :00 No 15mg 15 mg, Slow IV Push, ONCE, 1 dose, On Sat07/31/22 at 1915, Routine [facility] ondansetron (ZOFRAN (PF)) injection 4 mg 08-01 00:15: 00 08-01 00:46 :00 No 4mg 4 mg, Slow IV Push, ONCE, 1 dose, On Sat07/31/22 at 1914, [facility] famotidine (PEPCID (PF)) injection 20 mg 08-01 00:15: 00 08-01 00:46 :00 No 20mg 20 mg, Slow IV Push, ONCE, 1 dose, On Sat07/31/22 at 191, [facility] ondans[facility] 4 mg disintegrat ing tablet 07-31 00:00: 00 05-19 00:00 :00 No [id number] 4mg Take 1 tablet by mouth every 8 (eight) hours as needed for Nausea and Vomiting (N/V). [facility] sucralfate 1 gram tablet 07-31 00:00: 00 05-19 00:00 :00 No [id number] 1g Take 1 tablet by mouth before meals and at bedtime. [facility] pantoprazol e 40 mg EC tablet 07-31 00:00: 00 08-15 04:59 :00 No [id number] 40mg Take 1 tablet by mouth in the morning for 14 days. [facility] tamsulosin 0.4 mg 24 hr capsule 07-25 00:00: 00 Yes .4mg Take 1 capsule by mouth in the morning. [facility] tamsulosin 0.4 mg 24 hr capsule 3-15 00:00: 00 02-26 00:00 :00 No 1{capsu le} Take 1 capsule by mouth in the morning. [facility] traMADoL 50 mg tablet 3-13 00:00: 00 02-26 00:00 :00 No 50mg Take 1 tablet by mouth. [facility] ibuprofen 600 mg tablet 3-05 00:00: 00 07-31 00:00 :00 No [id number] 600mg Take 1 tablet by mouth every 6 (six) hours as needed for Pain (scale 4-6). [facility] citalopram 10 mg tablet -17 00:00: 00 Yes 10mg Take 1 tablet by mouth in the morning. [facility] citalopram 10 mg tablet 06-29 00:00: 00 02-26 00:00 :00 No 1{tbl} Take 1 tablet by mouth in the morning. [facility] QUEtiapine 400 mg tablet 2-17 00:00: 00 02-26 00:00 :00 No [facility] gabapentin 600 mg tablet -17 00:00: 00 02-26 00:00 :00 No [facility] methylPREDN ISolone (MEDROL, ANABELA,) 4 mg tablets - 00:00: 00 Yes [id number] Take by mouth SEE-INSTRU CTIONS. follow package directions [facility] bromphenira mine-pseudo ephedrine-D M (BROMFED DM) 2-30-10 mg/5 mL syrup - 00:00: 00 07-04 05:59 :00 No [id number] 5mL Take 5 mL by mouth 4 (four) times daily as needed for Cold symptoms for up to 10 days. [facility] methocarbam oL 750 mg tablet - 00:00: 00 07-01 05:59 :00 No [id number] 750mg Take 1 tablet by mouth 4 (four) times daily for 7 days. [facility] magnesium sulfate in water 2 gram/50 mL (4 %) infusion 2 g 2021-05 21:00: 00 05-05 21:15 :00 No 2g 2 g, IV Piggyback, Administer over 15 Minutes, ONCE, 1 dose, On 05/05/22 at 1500, [facility] butalbital- acetaminoph en-caff (ESGIC) 50-325-40 mg tablet 1 tablet 2021-05 20:15: 00 05-05 20:56 :00 No 1{tbl} 1 tablet, Oral, ONCE, 1 dose, On 05/05/22 at 1415, [facility] dexamethaso ne sod phos PF injection 10 mg 2021-05 20:15: 00 05-05 21:00 :00 No 10mg 10 mg, Slow IV Push, ONCE, 1 dose, On 05/05/22 at 1415, 1 mL [facility] NaCl 0.9% (NS) bolus infusion 1,000 mL 2021-05 20:00: 00 05-05 21:45 :00 No 1000mL at 999 mL/hr, 1,000 mL, IV Infusion, ONCE, 1 dose, On 05/05/22 at 1400, [facility] diphenhydrA MINE (BENADRYL) injection 25 mg 2021-05 19:15: 00 05-05 19:42 :00 No 25mg 25 mg, Slow IV Push, ONCE, 1 dose, On 05/05/22 at 1315, [facility] ondansetron (ZOFRAN (PF)) injection 4 mg 2021-05 19:15: 00 05-05 19:45 :00 No 4mg 4 mg, Slow IV Push, ONCE, 1 dose, On 05/05/22 at 1315, [facility] ketorolac (TORADOL) injection 30 mg 2021-05 19:15: 00 05-05 19:44 :00 No 30mg 30 mg, Slow IV Push, ONCE, 1 dose, On 05/05/22 at 1315, Routine [facility] butalbital- acetaminoph en-caff 50-325-40 mg tablet 2021-05 00:00: 00 Yes [id number] 1{tbl} Take 1 tablet by mouth every 4 (four) hours as needed for Pain (scale 7-10). [facility] HYDROcodone -acetaminop hen (NORCO) 10-325 mg tablet 1 tablet 2021-05 16:30: 00 04-26 15:23 :00 No 1{tbl} 1 tablet, Oral, ONCE, 1 dose, On [place] 04/26/22 at 1030, Routine [facility] diphenhydrA MINE (BENADRYL) tablet 25 mg 2021-05 15:45: 00 04-26 15:53 :00 No 25mg 25 mg, Oral, ONCE, 1 dose, On [place] 04/26/22 at 0945, [place] [facility] NaCl 0.9% (NS) bolus infusion 1,000 mL 2021-05 15:45: 00 04-26 15:55 :00 No 1000mL at 999 mL/hr, 1,000 mL, IV Piggyback, ONCE, 1 dose, On [place] 04/26/22 at 0945, STAT [facility] ondansetron (ZOFRAN (PF)) injection 4 mg 2021-05 14:45: 00 04-26 14:52 :00 No 4mg 4 mg, Slow IV Push, ONCE, 1 dose, On [place] 04/26/22 at 0845, Routine [facility] cephALEXin (KEFLEX) 500 mg capsule 2021-05 00:00: 00 05-04 05:59 :00 No [id number] 500mg Take 1 capsule by mouth in the morning and 1 capsule at noon and 1 capsule in the evening. Do all this for 7 days. [facility] ondansetron (ZOFRAN) 4 mg tablet 2021-05 00:00: 00 07-31 00:00 :00 No 4mg Take 1 tablet by mouth every 8 (eight) hours as needed for Nausea and Vomiting (N/V). [facility] galcanezuma b-gnlm prefilled (EMGALITY) subcutaneou s injection 2021-05 00:00: 00 02-26 00:00 :00 No [id number] 120mg inject 120 mg under the skin once every month. [facility] methocarbam oL (ROBAXIN) injection 1,000 mg 2021-05 04:00: 00 Yes 1000mg 1,000 mg, Intravenou s, Q8H, First dose on 04/07/22 at 2200, Until Discontinu ed, Routine [facility] ketorolac (TORADOL) injection 30 mg 2021-05 00:45: 00 04-07 23:45 :00 No 30mg 30 mg, Slow IV Push, ONCE, 1 dose, On 04/07/22 at 1845, Routine [facility] HYDROcodone -acetaminop hen (NORCO) 10-325 mg tablet 1 tablet 2021-05 00:30: 00 04-07 23:45 :00 No 1{tbl} 1 tablet, Oral, ONCE NOW, 1 dose, On 04/07/22 at 1830, Routine [facility] diphenhydrA MINE (BENADRYL) injection 12.5 mg 2021-05 23:45: 00 04-07 23:46 :00 No 12.5mg 12.5 mg, Slow IV Push, ONCE, 1 dose, On 04/07/22 at 1745, STAT [facility] butorphanol (STADOL) injection 1 mg 2021-05 23:15: 00 04-07 22:48 :00 No 1mg 1 mg, IV Push, ONCE, 1 dose, On 04/07/22 at 1715, Routine [facility] NaCl 0.9% (NS) bolus infusion 1,000 mL 2021-05 23:15: 00 04-07 23:49 :00 No 1000mL at 999 mL/hr, 1,000 mL, IV Infusion, ONCE, 1 dose, On 04/07/22 at 1715, [place] [facility] ketorolac (TORADOL) injection 15 mg 2021-05 19:30: 00 03-24 18:45 :00 No 15mg 15 mg, Slow IV Push, ONCE, 1 dose, On 03/24/22 at 1330, Routine [facility] butorphanol (STADOL) injection 1 mg 2021-05 18:00: 00 03-24 17:26 :00 No 1mg 1 mg, Intravenou s, ONCE, 1 dose, On 03/24/22 at 1200, Routine [facility] proMETHazin e (PHENERGAN) 25 mg in NaCl 0.9% (NS) 50 mL IV piggyback 2021-05 18:00: 00 03-24 18:13 :00 No 25mg 25 mg, IV Piggyback, ONCE, 1 dose, On 03/24/22 at 1200, [facility] butorphanol (STADOL) injection 1 mg 2021-05 17:15: 00 03-24 16:26 :00 No 1mg 1 mg, IV Push, ONCE, 1 dose, On 03/24/22 at 1115, Routine [facility] diphenhydrA MINE (BENADRYL) injection 25 mg 2021-05 15:30: 00 03-24 15:40 :00 No 25mg 25 mg, Slow IV Push, ONCE, 1 dose, On 03/24/22 at 0930, STAT [facility] ondansetron (ZOFRAN (PF)) injection 4 mg 2021-05 15:30: 00 03-24 14:25 :00 No 4mg 4 mg, Slow IV Push, ONCE, 1 dose, [facility] 0.9% (NS) IV infusion 1,000 mL 2021-05 15:15: 00 03-24 17:25 :00 No 1000mL at 999 mL/hr, Intravenou s, ONCE, 1 dose, On 03/24/22 at 0915, [place] [facility] magnesium sulfate in water 2 gram/50 mL (4 %) infusion 2 g 2021-05 15:00: 00 03-24 14:47 :00 No 2g 2 g, IV Piggyback, Administer over 20 Minutes, ONCE, 1 dose, On 03/24/22 at 0900, Routine [facility] dexamethaso ne sod phos PF injection 6 mg 2021-05 14:15: 00 03-24 14:14 :00 No 6mg 6 mg, Slow IV Push, ONCE, 1 dose, On 03/24/22 at 0815, 1 mL [facility] diphenhydrA MINE (BENADRYL) injection 25 mg 2021-05 14:15: 00 03-24 14:16 :00 No 25mg 25 mg, Slow IV Push, ONCE, 1 dose, On 03/24/22 at 0815, STAT [facility] ALBUTEROL INHALE 2021-05 07:58: 13 03-24 00:00 :00 No [facility] rizatriptan 10 mg tablet 2021-05 00:00: 00 02-26 00:00 :00 No [id number] 10mg Take 1 tablet by mouth as needed for Migraine. May repeat in 2 hours if needed [facility] Butalbital- Acetaminoph en-Caff (FIORICET) 50-300-40 mg per capsule 2021-05 00:00: 00 02-26 00:00 :00 No [id number] 1{capsu le} Take 1 capsule by mouth every 6 (six) hours as needed for Other (headache) . [facility] magnesium oxide 200 mg magnesium Tab 2021-05 00:00: 00 04-07 00:00 :00 No [id number] 200mg Take 200 mg by mouth 2 (two) times daily. Indication s: headache [facility] SUMAtriptan 50 mg tablet 2021-05 00:00: 00 02-26 00:00 :00 No 50mg Take 1 tablet by mouth as needed for Migraine. Take one tablet at onset of migraine, may take another tablet 2 hours after initial dose if no relief with first dose. DO NOT EXCEED 100mg in a 24 hour period. [facility] FENTanyl PF (SUBLIMAZE (PF)) injection 50 mcg 2021-05 15:30: 00 03-15 14:56 :00 No 50ug 50 mcg, Slow IV Push, ONCE, 1 dose, On [place] 03/15/22 at 1030, Routine [facility] proMETHazin e (PHENERGAN) tablet 25 mg 2021-05 14:45: 00 03-15 14:55 :00 No 25mg 25 mg, Oral, ONCE, 1 dose, On [place] 03/15/22 at 0945, [place] [facility] FENTanyl PF (SUBLIMAZE (PF)) injection 50 mcg 2021-05 14:45: 00 03-15 13:58 :00 No 50ug 50 mcg, Slow IV Push, ONCE, 1 dose, On [place] 03/15/22 at 0945, Routine [facility] ondansetron (ZOFRAN (PF)) injection 4 mg 2021-05 14:00: 00 03-15 13:58 :00 No 4mg 4 mg, Slow IV Push, ONCE, 1 dose, On [place] 03/15/22 at 0900, [place] [facility] carvediloL 25 mg tablet 2021-05 00:00: 00 09-05 00:00 :00 No [id number] 25mg Take 1 tablet by mouth in the morning and 1 tablet in the evening. Take with meals. [facility] ondansetron 4 mg disintegrat ing tablet 2021-05 00:00: 00 04-07 00:00 :00 No [id number] 4mg Take 1 tablet by mouth every 8 (eight) hours as needed for Nausea and Vomiting (N/V). [facility] ketorolac 10 mg tablet 2021-05 00:00: 04-07 00:00 :00 No [id number] 10mg Take 1 tablet by mouth every 6 (six) hours as needed for Pain (scale 7-10). [facility] proMETHazin e 25 mg tablet 2021-05 00:00: 00 04-07 00:00 :00 No [id number] 25mg Take 1 tablet by mouth every 6 (six) hours as needed for N/V unresponsi ve to Federicodabonnieo n. [facility] cephALEXin 500 mg capsule 2021-05 00:00: 00 03-19 05:59 :00 No [id number] 500mg Take 1 capsule by mouth 4 (four) times daily for 3 days. [facility] predniSONE 20 mg tablet 2021-05 00:00: 00 03-15 04:59 :00 No [id number] 20mg Take 1 tablet by mouth in the morning for 2 days. [facility] methocarbam oL (ROBAXIN) tablet 500 mg 2021-05 16:45: 00 03-11 17:08 :00 No 500mg 500 mg, Oral, ONCE, 1 dose, On 03/11/22 at 1200, [place] [facility] dexamethaso ne sod phos PF injection 10 mg 2021-05 16:00: 00 03-11 16:00 :00 No 10mg 10 mg, Slow IV Push, ONCE, 1 dose, On 03/11/22 at 1100, 1 mL [facility] diphenhydrA MINE (BENADRYL) injection 25 mg 2021-05 15:46: 00 03-11 16:00 :00 No 25mg 25 mg, Slow IV Push, ONCE, 1 dose, On 03/11/22 at 1100, STAT [facility] NaCl 0.9% (NS) IV infusion 1,000 mL 2021-05 15:45: 00 03-11 16:04 :00 No 1000mL at 999 mL/hr, Intravenou s, ONCE, 1 dose, On 03/11/22 at 1045, Routine [facility] butalbital- acetaminoph en-caff (ESGIC) 50-325-40 mg tablet 1 tablet 2021-05 15:00: 00 03-11 15:05 :00 No 1{tbl} 1 tablet, Oral, ONCE, 1 dose, On 03/11/22 at 1015, [place] [facility] ketorolac (TORADOL) injection 15 mg 2021-05 14:45: 00 03-11 15:05 :00 No 15mg 15 mg, Slow IV Push, ONCE, 1 dose, [facility]11[facility]22 at 0945[facility] (PHENERGAN) 12.5 mg in NaCl 0.9% (NS) 50 mL IV piggyback 2021-05 14:45: 00 03-11 15:04 :00 No 12.5mg 12.5 mg, IV Piggyback, ONCE, 1 dose, On 03/11/22 at 0945, [facility] proMETHazin e 25 mg tablet 2021-05 00:00: 00 07-31 00:00 :00 No [id number] 25mg Take 1 tablet by mouth every 6 (six) hours as needed for Nausea and Vomiting (N/V). [facility] methocarbam oL 500 mg tablet 2021-05 00:00: 00 04-07 00:00 :00 No [id number] 500mg Take 1 tablet by mouth 3 (three) times daily as needed for Pain (scale 7-10). [facility] topiramate 25 mg tablet 2021-05 00:00: 00 02-26 00:00 :00 No [id number] 100mg Take 4 tablets by mouth in the morning. [facility] diphenhydrA MINE 25 mg capsule 2021-05 09:39: 59 02-27 00:00 :00 No 25mg Take 25 mg by mouth every 6 (six) hours as needed for Allergies. [facility] citalopram hydrobromid e (CITALOPRAM ORAL) 2021-05 09:39: 49 02-27 00:00 :00 No Take by mouth. [facility] carbamazepi ne (TEGRETOL ORAL) 2021-05 09:39: 28 02-27 00:00 :00 No Take by mouth. [facility] albuterol 90 mcg/actuati on inhaler 2021-05 00:00: 00 02-26 00:00 :00 No [id number] 2{puff} Inhale 2 Puffs every 6 (six) hours as needed for Wheezing or Shortness of Breath. [facility] SUMAtriptan 50 mg tablet 2021-05 00:00: 00 03-21 00:00 :00 No 50mg Take 50 mg by mouth as needed for Migraine. Take one tablet at onset of migraine, may take another tablet 2 hours after initial dose if no relief with first dose. DO NOT EXCEED 100mg in a 24 hour period. [facility] benzonatate 200 mg capsule 2021-05 00:00: 00 03-07 04:59 :00 No [id number] 200mg Take 1 capsule by mouth 3 (three) times daily as needed for Cough for up to 7 days. [facility] butalbital- acetaminoph en-caff (ESGIC) 50-325-40 mg tablet 1 tablet 2021-05 08:15: 00 02-21 08:09 :00 No 1{tbl} 1 tablet, Oral, ONCE, 1 dose, On Sat02/21/22 at 0315, [place] [facility] butorphanol (STADOL) injection 1 mg 2021-05 08:15: 00 02-21 07:28 :00 No 1mg 1 mg, IV Push, ONCE, 1 dose, On Sat02/21/22 at 0315, [facility] NaCl 0.9% (NS) bolus infusion 1,000 mL 2021-05 07:15: 00 02-21 08:40 :00 No 1000mL at 999 mL/hr, 1,000 mL, IV Infusion, ONCE, 1 dose, On Sat02/21/22 at 0215, [place] [facility] proMETHazin e (PHENERGAN) 12.5 mg in NaCl 0.9% (NS) 50 mL IV piggyback 2021-05 06:30: 00 02-21 06:38 :00 No 12.5mg 12.5 mg, IV Piggyback, ONCE, 1 dose, On Sat02/21/22 at 0130, [place] [facility] dexamethaso ne sod phos PF injection 10 mg 2021-05 06:30: 00 02-21 06:38 :00 No 10mg 10 mg, Slow IV Push, ONCE, 1 dose, On Sat02/21/22 at 0130, 1 mL [facility] ketorolac (TORADOL) injection 15 mg 2021-05 06:30: 00 02-21 06:38 :00 No 15mg 15 mg, Slow IV Push, ONCE, 1 dose, On Sat02/21/22 at 0130, [place] [facility] diphenhydrA MINE (BENADRYL) injection 25 mg 2021-05 06:30: 00 02-21 06:38 :00 No 25mg 25 mg, Slow IV Push, ONCE, 1 dose, On Sat02/21/22 at 0130, STAT [facility] FENTanyl PF (SUBLIMAZE (PF)) injection 50 mcg 2021-05 0 20:30: 00 02-18 19:44 :00 No 50ug 50 mcg, Slow IV Push, ONCE, 1 dose, On Sat02/18/22 at 1530, Routine [facility] ketorolac (TORADOL) injection 30 mg 2021-05 0 20:15: 00 02-18 20:09 :00 No 30mg 30 mg, Slow IV Push, ONCE, 1 dose, On 02/18/22 at 1515, [facility] iopamidol (ISOVUE 370-500 mL) injection 60 mL 2021-05 19:30: 00 02-18 17:30 :00 No [id number] 60mL 60 mL, Intravenou s, ONCE, 1 dose, On 02/18/22 at 1430, Routine [facility] proMETHazin e (PHENERGAN) 12.5 mg in NaCl 0.9% (NS) 50 mL IV piggyback 2021-05 18:15: 00 02-18 18:19 :00 No 12.5mg 12.5 mg, IV Piggyback, ONCE, 1 dose, On [place] 02/18/22 at 1315, [facility] FENTanyl PF (SUBLIMAZE (PF)) injection 50 mcg 2021-05 18:00: 00 02-18 17:26 :00 No 50ug 50 mcg, Slow IV Push, ONCE, 1 dose, On [place] 02/18/22 at 1300, Routine [facility] ondansetron (ZOFRAN (PF)) injection 4 mg 2021-05 17:15: 00 02-18 17:27 :00 No 4mg 4 mg, Slow IV Push, ONCE, 1 dose, On [place] 02/18/22 at 1215, [facility] morpHINE (2 mg/mL) injection 4 mg 01-18 15:15: 00 01-18 14:49 :00 No 4mg 4 mg, Slow IV Push, ONCE, 1 dose, On [place] 01/18/22 at 1015, STAT [facility] ondansetron (ZOFRAN (PF)) injection 4 mg 01-18 13:30: 00 01-18 13:33 :00 No 4mg 4 mg, Slow IV Push, ONCE, 1 dose, On [place] 01/18/22 at 0830, [facility] morpHINE (4 mg/mL) injection 4 mg 01-18 13:30: 00 01-18 13:34 :00 No 4mg 4 mg, Slow IV Push, ONCE, 1 dose, On [place] 01/18/22 at 0830, STAT [facility] morpHINE (4 mg/mL) injection 4 mg 01-18 12:30: 00 01-18 11:39 :00 No 4mg 4 mg, Slow IV Push, ONCE, 1 dose, On [place] 01/18/22 at 0730, STAT [facility] famotidine (PEPCID (PF)) injection 20 mg 01-18 11:30: 00 01-18 10:52 :00 No 20mg 20 mg, Slow IV Push, ONCE, 1 dose, On [place] 01/18/22 at 0630, [facility] ondansetron (ZOFRAN (PF)) injection 4 mg 01-18 11:30: 00 01-18 10:52 :00 No 4mg 4 mg, Slow IV Push, ONCE, 1 dose, On [place] 01/18/22 at 0630[facility] iodixanoL (VISIPAQUE 270-150 mL) injection 80 mL 01-18 11:21: 00 01-18 11:15 :00 No [id number] 80mL 80 mL, Intravenou s, ONCE, 1 dose, On [place] 01/18/22 at 0630, Routine [facility] NaCl 0.9% (NS) bolus infusion 1,000 mL 01-18 11:15: 00 01-18 12:59 :00 No 1000mL at 999 mL/hr, 1,000 mL, IV Infusion, ONCE, 1 dose, On [place] 01/18/22 at 0615, [facility] morpHINE (4 mg/mL) injection 4 mg 01-18 10:45: 00 01-18 10:52 :00 No 4mg 4 mg, Slow IV Push, ONCE, 1 dose, On [place] 01/18/22 at 0545, STAT [facility] traMADoL 50 mg tablet 01-18 00:00: 02-27 00:00 :00 No [id number] 50mg Take 1 tablet by mouth every 6 (six) hours as needed for Pain (scale 7-10). Indication s: acute pain [facility] ondansetron 4 mg disintegrat ing tablet 01-18 00:00: 00 02-27 00:00 :00 No [id number] 4mg Take 1 tablet by mouth every 8 (eight) hours as needed for Nausea and Vomiting (N/V). [facility] ibuprofen 600 mg tablet 01-18 00:00: 00 02-27 00:00 :00 No [id number] 600mg Take 1 tablet by mouth every 6 (six) hours as needed for Pain (scale 4-6). [facility] predniSONE 20 mg tablet 01-16 00:00: 00 01-24 04:59 :00 No [id number] 40mg Take 2 tablets by mouth in the morning for 7 days. [facility] morpHINE (4 mg/mL) injection 4 mg 01-15 16:15: 00 01-15 15:28 :00 No 4mg 4 mg, Slow IV Push, ONCE, 1 dose, On Sat01/15/22 at 1115, [facility] proMETHazin e (PHENERGAN) 12.5 mg in NaCl 0.9% (NS) 50 mL IV piggyback 01-15 15:30: 00 01-15 15:28 :00 No 12.5mg 12.5 mg, IV Piggyback, ONCE, 1 dose, On Sat01/15/22 at 1030, [facility] NaCl 0.9% (NS) bolus infusion 1,000 mL 01-15 15:00: 00 01-15 15:38 :00 No 1000mL at 999 mL/hr, 1,000 mL, IV Infusion, ONCE, 1 dose, On Sat01/15/22 at 1000, [facility] morpHINE (4 mg/mL) injection 4 mg 01-15 15:00: 00 01-15 14:37 :00 No 4mg 4 mg, Slow IV Push, ONCE, 1 dose, On Sat01/15/22 at 1000, [facility] ondans[facility] (ZOFRAN (PF)) [facility] 8 mg 01-15 14:15: 00 01-15 14:37 :00 No 8mg 8 mg, Slow IV Push, ONCE, 1 dose, On Sat01/15/22 at 0915, [facility] dexamethaso ne sod phos PF injection 10 mg 01-15 14:15: 00 01-15 14:37 :00 No 10mg 10 mg, Slow IV Push, ONCE, 1 dose, On Sat01/15/22 at 0915, 1 mL [facility] proMETHazin e 25 mg tablet 01-15 00:00: 00 02-27 00:00 :00 No [id number] 25mg Take 1 tablet by mouth every 6 (six) hours as needed for Nausea and Vomiting (N/V). [facility] ondansetron (ZOFRAN-ODT ) disintegrat ing tablet 4 mg 01-09 01:45: 00 01-09 00:56 :00 No 4mg 4 mg, Oral, ONCE, 1 dose, On Sat01/08/22 at 2045, Routine [facility] HYDROcodone -acetaminop hen (NORCO 5) 5-325 mg tablet 1 tablet 01-09 00:45: 00 01-09 00:37 :00 No 1{tbl} 1 tablet, Oral, ONCE, 1 dose, On Sat01/08/22 at 1945, [facility] diphenhydrA MINE (BENADRYL) injection 25 mg 01-08 23:45: 00 01-08 23:51 :00 No 25mg 25 mg, Slow IV Push, ONCE, 1 dose, On Sat01/08/22 at 1845, STAT [facility] dexametho ne sod phos PF injection 10 mg 01-08 23:45: 00 01-08 23:50 :00 No 10mg 10 mg, Slow IV Push, ONCE, 1 dose, On Sat01/08/22 at 1845, 1 mL [facility] ketorolac (TORADOL) injection 30 mg 01-08 23:45: 00 01-08 23:51 :00 No 30mg 30 mg, Slow IV Push, ONCE, 1 dose, On Sat01/08/22 at 1845, [place] [facility] acetaminoph en (TYLENOL ARTHRITIS PAIN) 650 mg CR tablet 01-08 00:00: 00 04-07 00:00 :00 No [id number] 650mg Take 1 tablet by mouth every 8 (eight) hours as needed for Pain. [facility] ondansetron 4 mg disintegrat ing tablet 01-08 00:00: 00 02-27 00:00 :00 No [id number] 4mg Take 1 tablet by mouth every 8 (eight) hours as needed for Nausea and Vomiting (N/V). [facility] ketorolac 10 mg tablet 01-08 00:00: 00 02-27 00:00 :00 No [id number] 10mg Take 1 tablet by mouth every 6 (six) hours as needed for Pain (scale 4-6) or Pain (scale 7-10). [facility] metaxalone (SKELAXIN) 800 mg tablet 01-08 00:00: 00 02-27 00:00 :00 No [id number] 800mg Take 1 tablet by mouth in the morning and 1 tablet at noon and 1 tablet in the evening. [facility] metroNIDAZO LE 500 mg tablet 12-18 00:00: 00 02-27 00:00 :00 No 500mg Take 1 tablet by mouth every 12 (twelve) hours. [facility] trazodone/d ietary supp. no.8 (TRAZAMINE ORAL) 12-12 15:08: 46 12-12 00:00 :00 No Take by mouth. [facility] diphenhydrA MINE 25 mg capsule 12-12 13:03: 04 Yes 25mg Take 25 mg by mouth every 6 (six) hours as needed for Allergies. [facility] carbamazepi ne (TEGRETOL ORAL) 12-12 13:03: 04 Yes Take by mouth. [facility] traZODone 50 mg tablet 12-12 00:00: 00 02-27 00:00 :00 No [id number] 50mg Take 1 tablet by mouth at bedtime. [facility] SERTraline (ZOLOFT) 50 mg tablet 12-12 00:00: 00 02-27 00:00 :00 No [id number] 50mg Take 1 tablet by mouth in the morning. [facility] sulfamethox azole-trime thoprim (BACTRIM DS) 800-160 mg per tablet 12-12 00:00: 00 12-16 04:59 :00 No [id number] 1{tbl} Take 1 tablet by mouth in the morning and 1 tablet in the evening. Do all this for 3 days. [facility] ibuprofen 600 mg tablet 11-24 00:00: 00 02-27 00:00 :00 No [id number] 600mg Take 1 tablet by mouth every 6 (six) hours as needed for Pain (scale 4-6). [facility] acetaminoph en-codeine 300-30 mg tablet 11-24 00:00: 00 12-12 00:00 :00 No [id number] 1{tbl} Take 1 tablet by mouth every 4 (four) hours as needed for Pain (scale 4-6). Indication s: acute pain [facility] bromphenira mine-pseudo ephedrine-D M (BROMFED DM) 2-30-10 mg/5 mL syrup 11-18 00:00: 00 03-24 00:00 :00 No [id number] 5mL Take 5 mL by mouth 4 (four) times daily as needed for Congestion /Allergies or Cough. [facility] naproxen 500 mg tablet -09 00:00: 00 02-27 00:00 :00 No [id number] 500mg Take 1 tablet by mouth every 8 (eight) hours as needed for Pain (scale 4-6). [facility] cyclobenzap rine 10 mg tablet 09 00:00: 00 02-27 00:00 :00 No [id number] 10mg Take 1 tablet by mouth at bedtime as needed for Muscle Spasms. [facility] ibuprofen 100 mg/5 mL oral suspension 10-25 00:00: 00 02-27 00:00 :00 No [id number] 605mg Take 30.25 mL by mouth every 6 (six) hours as needed for Pain (scale 4-6) or Temp > 38.5 C. [facility] acetaminoph en 160 mg/5 mL liquid 10-25 00:00: 00 12-12 00:00 :00 No [id number] 608mg Take 19 mL by mouth every 6 (six) hours as needed for Fever. [facility] DULoxetine 60 mg capsule 10-06 00:00: 00 02-27 00:00 :00 No [facility] traZODone 50 mg tablet 10-06 00:00: 00 12-12 00:00 :00 No [facility] mometasone 50 mcg/actuati on nasal spray 09-28 00:00: 00 02-27 00:00 :00 No [id number] 1{spray } Use 1 [place] in each nostril 2 (two) times daily. [facility] cetirizine (ZYRTEC) 10 mg tablet 16 00:00: 00 02-27 00:00 :00 No [id number] 10mg Take 1 tablet by mouth daily. [facility] DULoxetine 30 mg capsule 09-18 00:00: 00 02-27 00:00 :00 No [facility] gabapentin 300 mg capsule 09 00:00: 02-27 00:00 :00 No [facility] ondansetron 4 mg tablet 09-18 00:00: 02-27 00:00 :00 No [facility] amLODIPine 5 mg tablet 09-01 00:00: 00 02-27 00:00 :00 No 5mg Take 5 mg by mouth. [facility] buPROPion XL 150 mg 24 hr tablet 08-30 00:00: 02-27 00:00 :00 No 150mg Take 150 mg by mouth. [facility] proMETHazin e 25 mg tablet 08-15 00:00: 09-12 00:00 :00 No [id number] 25mg Take 1 tablet by mouth every 6 (six) hours as needed for Nausea and Vomiting (N/V). [facility] traMADoL 50 mg tablet 08-15 00:00: 09-12 00:00 :00 No [id number] 50mg Take 1 tablet by mouth every 6 (six) hours as needed (pain). Indication s: acute pain [facility] cyclobenzap rine 10 mg tablet 08-07 00:00: 00 08-22 04:59 :00 No [id number] 10mg Take 1 tablet by mouth 3 (three) times daily for 14 days. [facility] ibuprofen 800 mg tablet 08-07 00:00: 00 08-22 04:59 :00 No [id number] 800mg Take 1 tablet by mouth every 6 (six) hours as needed for Pain (scale 1-3) for up to 14 days. [facility] diclofenac 75 mg EC tablet 08-01 00:00: 00 09-12 00:00 :00 No [facility] orphenadrin e 100 mg SR tablet 08-01 00:00: 00 09-12 00:00 :00 No [facility] divalproex 125 mg EC tablet 3-11 00:00: 00 09-12 00:00 :00 No [id number] 125mg Take 1 tablet by mouth every 12 (twelve) hours. [facility] divalproex Sprinkles 125 mg SPRINKLE capsule 3-11 00:00: 00 09-12 00:00 :00 No [facility] ibuprofen 600 mg tablet 3-07 00:00: 00 08-01 04:59 :00 No [id number] 9105 600mg Take 1 tablet by mouth every 6 (six) hours as needed for Temp > 38.5 C for up to 14 days. [facility] acetaminoph en-codeine 300-30 mg tablet 06-11 00:00: 00 09-12 00:00 :00 No TAKE 1 TABLET BY MOUTH EVERY 4 HOURS NEEDED FOR PAIN FOR 2 DAYS [facility] fluticasone propionate 110 mcg/actuati on inhaler 05-31 00:00: 00 09-28 00:00 :00 No [id number] 2{puff} Inhale 2 Puffs every 12 (twelve) hours. [facility] benzonatate (TESSALON PERLES) 100 mg capsule 1-13 00:00: 00 09-25 00:00 :00 No [id number] 100mg Take 1 capsule by mouth every 8 (eight) hours as needed for Cough. [facility] carvediloL 25 mg tablet 2020-05 00:00: 00 02-27 00:00 :00 No 25mg Take 1 tablet by mouth 2 (two) times daily with meals. [facility] losartan 50 mg tablet 2020-05 00:00: 00 02-27 00:00 :00 No 50mg Take 1 tablet by mouth 2 (two) times daily. [facility] proMETHazin e 25 mg tablet 2020-05 00:00: 00 09-12 00:00 :00 No [facility] methocarbam oL (ROBAXIN) 500 mg tablet 2020-05 2-21 00:00: 00 05-25 00:00 :00 No [id number] 500mg Take 1 tablet by mouth every 6 (six) hours as needed (MUSCLE SPASM). [facility] vitamin B-12 (VITAMIN B-12) 500 mcg tablet 2020-05 00:00: 00 09-12 00:00 :00 No [id number] 500ug Take 1 tablet by mouth daily. [facility] methylPREDN ISolone 4 mg tablets 2020-05 00:00: 00 05-25 00:00 :00 No [id number] Follow package directions [facility] fluticasone propion-chel meteroL 115-21 mcg/actuati on inhaler 02-09 00:00: 00 05-25 00:00 :00 No [id number] 2{puff} Inhale 2 Puffs 2 (two) times daily. Rinse mouth after each use. [facility] albuterol 2.5 mg /3 mL (0.083 %) nebulizer solution 02-09 00:00: 00 05-25 00:00 :00 No [id number] 2.5mg Inhale 3 mL every 6 (six) hours as needed for Wheezing or Shortness of Breath. [facility] methocarbam oL (ROBAXIN) 500 mg tablet 02-09 00:00: 00 05-02 00:00 :00 No [id number] 500mg Take 1 tablet by mouth every 6 (six) hours as needed (MUSCLE SPASM). [facility] bromphenira mine-pseudo ephedrine-D M (BROMFED DM) 2-30-10 mg/5 mL syrup 01-31 00:00: 00 02-09 00:00 :00 No [id number] 5mL Take 5 mL by mouth 4 (four) times daily as needed for Cough. [facility] methylPREDN ISolone (MEDROL, ANABELA,) 4 mg tablets 01-20 00:00: 00 02-09 00:00 :00 No [id number] Take by mouth SEE-INSTRU CTIONS. follow package directions [facility] albuterol 90 mcg/actuati on inhaler 01-12 00:00: 00 05-25 00:00 :00 No [id number] 2{puff} Inhale 2 Puffs every 4 (four) hours as needed for Wheezing or Shortness of Breath. [facility] benzonatate 100 mg capsule 01-12 00:00: 00 02-19 00:00 :00 No [id number] 100mg Take 1 capsule by mouth 3 (three) times daily as needed for Cough. [facility] losartan 50 mg tablet 12-23 00:00: 00 02-09 00:00 :00 No 50mg Take 1 tablet by mouth 2 (two) times daily. [facility] topiramate 25 mg tablet 11-22 00:00: 00 12-26 00:00 :00 No 25mg Take 1 tablet by mouth 2 (two) times daily. [facility] OXcarbazepi ne 150 mg tablet 11-21 00:00: 00 02-09 00:00 :00 No [facility] FLUoxetine 40 mg capsule 11-21 00:00: 00 12-26 00:00 :00 No [facility] traZODone 100 mg tablet 12 00:00: 00 12-26 00:00 :00 No [facility] dicyclomine 20 mg tablet 6-10 00:00: 00 12-26 00:00 :00 No [id number] 20mg Take 1 tablet by mouth 4 (four) times daily. [facility] proMETHazin e 25 mg tablet 6-10 00:00: 00 12-26 00:00 :00 No [id number] 25mg Take 1 tablet by mouth every 6 (six) hours as needed for Nausea and Vomiting (N/V). [facility] acetaminoph en-codeine 300-30 mg tablet 6-05 00:00: 00 12-26 00:00 :00 No TAKE 2 TABLETS BY MOUTH EVERY 6 HOURS NEEDED FOR PAIN [facility] oxybutynin (DITROPAN XL) 10 mg 24 hr tablet 5-30 00:00: 00 12-26 00:00 :00 No [id number] 10mg Take 1 tablet by mouth daily. [facility] ondansetron (ZOFRAN ODT) 4 mg disintegrat ing tablet 30 00:00: 00 12-26 00:00 :00 No [id number] 4mg Take 1 tablet by mouth every 8 (eight) hours as needed for Nausea and Vomiting (N/V). [facility] ciprofloxac in HCl 500 mg tablet 30 00:00: 00 11-22 00:00 :00 No [id number] 500mg Take 1 tablet by mouth 2 (two) times daily. [facility] predniSONE 20 mg tablet 25 00:00: 00 11-22 00:00 :00 No [id number] 20mg Take 1 tablet by mouth daily. Days 1-2: 3 pills (60 mg). Days 3-4: 2 pills (40 mg). Days 5-6: 1 pill (20 mg). Days 7-8: 1/2 pill (10 mg). Then stop [facility] mupirocin 2 % ointment 20 00:00: 00 12-26 00:00 :00 No [id number] Apply to both nostrils at bedtime [facility] naproxen sodium (ANAPROX DS) 550 mg tablet 19 00:00: 00 12-26 00:00 :00 No [id number] 550mg Take 1 tablet by mouth 2 (two) times daily with meals. [facility] losartan 25 mg tablet 07 00:00: 00 12-22 00:00 :00 No 25mg Take 1 tablet by mouth 2 (two) times daily. [facility] nadoloL 20 mg tablet 09-16 00:00: 00 12-22 00:00 :00 No [id number] Please take Nadalol 40 mg QAM [facility] LOESTRIN FE (LOESTRIN FE 1/20) 1 mg-20 mcg (21)/75 mg (7) tablet 09-06 00:00: 00 02-09 00:00 :00 No [id number] 1{tbl} Take 1 tablet by mouth daily. [facility] FLUoxetine 20 mg capsule 09-06 00:00: 00 11-22 00:00 :00 No [id number] 20mg Take 1 capsule by mouth daily. [facility] traZODone 50 mg tablet 09-06 00:00: 00 11-22 00:00 :00 No [id number] 50mg Take 1 tablet by mouth at bedtime. [facility] nadoloL 20 mg tablet 08-31 00:00: 00 09-16 00:00 :00 No [id number] Please take Nadalol 40 mg QAM and 20 mg QPM [facility] methocarbam oL (ROBAXIN) 500 mg tablet 08-18 00:00: 00 09-30 00:00 :00 No [id number] 500mg Take 1 tablet by mouth every 6 (six) hours as needed (MUSCLE SPASM). [facility] traMADoL (ULTRAM) 50 mg tablet 08-18 00:00: 00 09-30 00:00 :00 No [id number] 50mg Take 1 tablet by mouth every 6 (six) hours as needed for Pain (scale 7-10). Indication s: acute pain [facility] ibuprofen 800 mg tablet 04 00:00: 00 11-22 00:00 :00 No TAKE 1 TABLET BY MOUTH EVERY 12 HOURS NEEDED FOR PAIN [facility] ondansetron (ZOFRAN ODT) 4 mg disintegrat ing tablet 08-01 00:00: 09-30 00:00 :00 No [id number] 4mg Take 1 tablet by mouth every 8 (eight) hours as needed for Nausea and Vomiting (N/V). [facility] ketorolac 10 mg tablet 08-01 00:00: 00 09-30 00:00 :00 No [id number] 10mg Take 1 tablet by mouth every 6 (six) hours as needed for Pain (scale 4-6). [facility] ciprofloxac in HCl 250 mg tablet 08-01 00:00: 00 09-30 00:00 :00 No [id number] 250mg Take 1 tablet by mouth 2 (two) times daily. [facility] lidocaine 5 % (700 mg/patch) patch 07-22 00:00: 00 09-30 00:00 :00 No [id number] 1{patch } Apply 1 Patch to area(s) every 24 (twenty-fo ur) hours as needed for Localized pain. [facility] topiramate 25 mg tablet 05-17 00:00: 11-22 00:00 :00 No 25mg Take 1 tablet by mouth 2 (two) times daily. [facility] metoprolol succinate XL 25 mg 24 hr tablet 2019-05 00:00: 00 06-15 00:00 :00 No [id number] 12.5mg Take 0.5 tablets by mouth 2 (two) times daily for 90 days. [facility] FLUoxetine 20 mg capsule 2019-05 00:00: 00 09-06 00:00 :00 No 20mg Take 20 mg by mouth daily. [facility] norgestimat e-ethinyl estradiol 0.25-35 mg-mcg per tablet 11-17 00:00: 04-15 00:00 :00 No [id number] 1{tbl} Take 1 tablet by mouth daily. [facility] buPROPion XL (WELLBUTRIN XL) 150 mg 24 hr tablet 08-12 00:00: 01-04 00:00 :00 No [id number] 150mg Take 1 tablet by mouth daily. [facility] acetaminoph en 325 mg tablet 07-22 00:00: 01-04 00:00 :00 No [id number] 650mg Take 2 tablets by mouth every 6 (six) hours as needed for Pain (scale 1-3) or Pain (scale 4-6). [facility] vitamin w/FA tablet 07-22 00:00: 01-04 00:00 :00 No [id number] 1{tbl} Take 1 tablet by mouth daily. [facility] docusate calcium 240 mg capsule 07-22 00:00: 01-04 00:00 :00 No [id number] 240mg Take 1 capsule by mouth once daily as needed for Constipati on. [facility] ferrous sulfate 325 mg (65 mg iron) tablet 07-22 00:00: 01-04 00:00 :00 No [id number] 325mg Take 1 tablet by mouth 2 (two) times daily. [facility] ibuprofen 600 mg tablet 07-22 00:00: 01-04 00:00 :00 No [id number] 600mg Take 1 tablet by mouth every 6 (six) hours as needed (Pain). Take with food or milk. [facility] ALBUTEROL 90 mcg/actuati on inhaler 1-14 00:00: 05-01 00:00 :00 No [id number] 103 INHALE 2 PUFFS BY MOUTH EVERY 6 HOURS NEEDED FOR WHEEZING FOR SHORTNESS OF BREATH [facility] buPROPion SR (WELLBUTRIN SR) 150 mg SR tablet 05-21 00:00: 01-04 00:00 :00 No [id number] 150mg Take 1 tablet by mouth 2 (two) times daily. [facility] busPIRone 10 mg tablet 05-21 00:00: 01-04 00:00 :00 No [id number] 109 10mg Take 1 tablet by mouth 3 (three) times daily. [facility] Immunizations Ordered Immunization Name Filled Immunization Name Date Status Comments Source Influenza Virus Vaccine Quad IM, Preserv and ABX Free 6 MO-64 YRS 2022-02-27 00:00:00 Completed [facility] Influenza Virus Vaccine Quad IM, Preserv and ABX Free 6 MO-64 YRS 2022-02-27 00:00:00 Completed [facility] Influenza Virus Vaccine Quad IM, Preserv and ABX Free 6 MO-64 YRS 2022-02-27 00:00:00 Completed [facility] Influenza Virus Vaccine Quad IM, Preserv and ABX Free 6 MO-64 YRS 2022-02-27 00:00:00 Completed [facility] Influenza Virus Vaccine Quad IM, Preserv and ABX Free 6 MO-64 YRS 2022-02-27 00:00:00 Completed [facility] Influenza Virus Vaccine Quad IM, Preserv and ABX Free 6 MO-64 YRS 2022-02-27 00:00:00 Completed [facility] Influenza Virus Vaccine Quad IM, Preserv and ABX Free 6 MO-64 YRS 2022-02-27 00:00:00 Completed [facility] Influenza Virus Vaccine Quad IM, Preserv and ABX Free 6 MO-64 YRS 2022-02-27 00:00:00 Completed [facility] Influenza Virus Vaccine Quad IM, Preserv and ABX Free 6 MO-64 YRS 2022-02-27 00:00:00 Completed [facility] Influenza Virus Vaccine Quad IM, Preserv and ABX Free 6 MO-64 YRS 2022-02-27 00:00:00 Completed [facility] Influenza Virus Vaccine Quad IM, Preserv and ABX Free 6 MO-64 YRS 2022-02-27 00:00:00 Completed [facility] Influenza Virus Vaccine Quad IM, Preserv and ABX Free 6 MO-64 YRS 2022-02-27 00:00:00 Completed [facility] Influenza Virus Vaccine Quad IM, Preserv and ABX Free 6 MO-64 YRS 2022-02-27 00:00:00 Completed [facility] Influenza Virus Vaccine Quad IM, Preserv and ABX Free 6 MO-64 YRS 2022-02-27 00:00:00 Completed [facility] Influenza Virus Vaccine Quad IM, Preserv and ABX Free 6 MO-64 YRS 2022-02-27 00:00:00 Completed [facility] Influenza Virus Vaccine Quad IM, Preserv and ABX Free 6 MO-64 YRS 2022-02-27 00:00:00 Completed [facility] Influenza Virus Vaccine Quad IM, Preserv and ABX Free 6 MO-64 YRS 2022-02-27 00:00:00 Completed [facility] Influenza Virus Vaccine Quad IM, Preserv and ABX Free 6 MO-64 YRS 2022-02-27 00:00:00 Completed [facility] Influenza Virus Vaccine Quad IM, Preserv and ABX Free 6 MO-64 YRS 2022-02-27 00:00:00 Completed [facility] Influenza Virus Vaccine Quad IM, Preserv and ABX Free 6 MO-64 YRS 2022-02-27 00:00:00 Completed [facility] Influenza Virus Vaccine Quad IM, Preserv and ABX Free 6 MO-64 YRS 2022-02-27 00:00:00 Completed [facility] Influenza Virus Vaccine Quad IM, Preserv and ABX Free 6 MO-64 YRS 2022-02-27 00:00:00 Completed [facility] Influenza Virus Vaccine Quad IM, Preserv and ABX Free 6 MO-64 YRS 2022-02-27 00:00:00 Completed [facility] Influenza Virus Vaccine Quad IM, Preserv and ABX Free 6 MO-64 YRS 2022-02-27 00:00:00 Completed [facility] Influenza Virus Vaccine Quad IM, Preserv and ABX Free 6 MO-64 YRS 2022-02-27 00:00:00 Completed [facility] Influenza Virus Vaccine Quad IM, Preserv and ABX Free 6 MO-64 YRS 2022-02-27 00:00:00 Completed [facility] Influenza Virus Vaccine Quad IM, Preserv and ABX Free 6 MO-64 YRS 2022-02-27 00:00:00 Completed [facility] Influenza Virus Vaccine Quad IM, Preserv and ABX Free 6 MO-64 YRS 2022-02-27 00:00:00 Completed [facility] Influenza Virus Vaccine Quad IM, Preserv and ABX Free 6 MO-64 YRS 2022-02-27 00:00:00 Completed [facility] Influenza Virus Vaccine Quad IM, Preserv and ABX Free 6 MO-64 YRS 2022-02-27 00:00:00 Completed [facility] Influenza Virus Vaccine Quad IM, Preserv and ABX Free 6 MO-64 YRS 2022-02-27 00:00:00 Completed [facility] Influenza Virus Vaccine Quad IM, Preserv and ABX Free 6 MO-64 YRS 2022-02-27 00:00:00 Completed [facility] Influenza Virus Vaccine Quad IM, Preserv and ABX Free 6 MO-64 YRS 2022-02-27 00:00:00 Completed [facility] Influenza Virus Vaccine Quad IM, Preserv and ABX Free 6 MO-64 YRS 2022-02-27 00:00:00 Completed [facility] Influenza Virus Vaccine Quad IM, Preserv and ABX Free 6 MO-64 YRS 2022-02-27 00:00:00 Completed [facility] Influenza Virus Vaccine Quad IM, Preserv and ABX Free 6 MO-64 YRS 2022-02-27 00:00:00 Completed [facility] Influenza Virus Vaccine Quad IM, Preserv and ABX Free 6 MO-64 YRS 2022-02-27 00:00:00 Completed [facility] Influenza Virus Vaccine Quad IM, Preserv and ABX Free 6 MO-64 YRS 2022-02-27 00:00:00 Completed [facility] Influenza Virus Vaccine Quad IM, Preserv and ABX Free 6 MO-64 YRS 2022-02-27 00:00:00 Completed [facility] Influenza Virus Vaccine Quad IM, Preserv and ABX Free 6 MO-64 YRS 2022-02-27 00:00:00 Completed [facility] Influenza Virus Vaccine Quad IM, Preserv and ABX Free 6 MO-64 YRS 2022-02-27 00:00:00 Completed [facility] Influenza Virus Vaccine Quad IM, Preserv and ABX Free 6 MO-64 YRS (FLUCELVAX) 2022-02-27 00:00:00 Completed [facility] Influenza Virus Vaccine Quad IM, Preserv and ABX Free 6 MO-64 YRS (FLUCELVAX) 2022-02-27 00:00:00 Completed [facility] Influenza Virus Vaccine Quad IM, Preserv and ABX Free 6 MO-64 YRS (FLUCELVAX) 2022-02-27 00:00:00 Completed [facility] Influenza Virus Vaccine Quad .5 mL IM 6+ MO 2022-02-21 00:00:00 Completed [facility] Influenza Virus Vaccine Quad .5 mL IM 6+ MO 2022-02-21 00:00:00 Completed [facility] Influenza Virus Vaccine Quad .5 mL IM 6+ MO 2022-02-21 00:00:00 Completed [facility] Influenza Virus Vaccine Quad .5 mL IM 6+ MO 2022-02-21 00:00:00 Completed [facility] Influenza Virus Vaccine Quad .5 mL IM 6+ MO 2022-02-21 00:00:00 Completed [facility] Influenza Virus Vaccine Quad .5 mL IM 6+ MO 2022-02-21 00:00:00 Completed [facility] Influenza Virus Vaccine Quad .5 mL IM 6+ MO 2022-02-21 00:00:00 Completed [facility] Influenza Virus Vaccine Quad .5 mL IM 6+ MO 2022-02-21 00:00:00 Completed [facility] Influenza Virus Vaccine Quad .5 mL IM 6+ MO 2022-02-21 00:00:00 Completed [facility] Influenza Virus Vaccine Quad .5 mL IM 6+ MO 2022-02-21 00:00:00 Completed [facility] Influenza Virus Vaccine Quad .5 mL IM 6+ MO 2022-02-21 00:00:00 Completed [facility] Influenza Virus Vaccine Quad .5 mL IM 6+ MO 2022-02-21 00:00:00 Completed [facility] Influenza Virus Vaccine Quad .5 mL IM 6+ MO (FLUZONE/FLULAVAL/F LUARIX) 2022-02-21 00:00:00 Completed [facility] Influenza Virus Vaccine Quad .5 mL IM 6+ MO (FLUZONE/FLULAVAL/F LUARIX) 2022-02-21 00:00:00 Completed [facility] Influenza Virus Vaccine Quad .5 mL IM 6+ MO (FLUZONE/FLULAVAL/F LUARIX) 2022-02-21 00:00:00 Completed [facility] Influenza Virus Vaccine 2021-06-11 00:00:00 Completed [facility] Influenza Virus Vaccine 2021-06-11 00:00:00 Completed [facility] Influenza Virus Vaccine 2021-06-11 00:00:00 Completed [facility] Influenza Virus Vaccine 2021-06-11 00:00:00 Completed [facility] Influenza Virus Vaccine 2021-06-11 00:00:00 Completed [facility] Influenza Virus Vaccine 2021-06-11 00:00:00 Completed [facility] Influenza Virus Vaccine 2021-06-11 00:00:00 Completed [facility] Influenza Virus Vaccine 2021-06-11 00:00:00 Completed [facility] Influenza Virus Vaccine 2021-06-11 00:00:00 Completed [facility] Influenza Virus Vaccine 2021-06-11 00:00:00 Completed [facility] Influenza Virus Vaccine 2021-06-11 00:00:00 Completed [facility] Influenza Virus Vaccine 2021-06-11 00:00:00 Completed [facility] Influenza Virus Vaccine 2021-06-11 00:00:00 Completed [facility] Influenza Virus Vaccine 2021-06-11 00:00:00 Completed [facility] Influenza Virus Vaccine 2021-06-11 00:00:00 Completed [facility] Influenza Virus Vaccine 2021-06-11 00:00:00 Completed [facility] Influenza Virus Vaccine 2021-06-11 00:00:00 Completed [facility] Influenza Virus Vaccine 2021-06-11 00:00:00 Completed [facility] Influenza Virus Vaccine 2021-06-11 00:00:00 Completed [facility] Influenza Virus Vaccine 2021-06-11 00:00:00 Completed [facility] Influenza Virus Vaccine 2021-06-11 00:00:00 Completed [facility] Influenza Virus Vaccine 2021-06-11 00:00:00 Completed [facility] Influenza Virus Vaccine 2021-06-11 00:00:00 Completed [facility] Influenza Virus Vaccine 2021-06-11 00:00:00 Completed [facility] Influenza Virus Vaccine 2021-06-11 00:00:00 Completed [facility] Influenza Virus Vaccine 2021-06-11 00:00:00 Completed [facility] Influenza Virus Vaccine 2021-06-11 00:00:00 Completed [facility] Influenza Virus Vaccine 2021-06-11 00:00:00 Completed [facility] Influenza Virus Vaccine 2021-06-11 00:00:00 Completed [facility] Influenza Virus Vaccine 2021-06-11 00:00:00 Completed [facility] Influenza Virus Vaccine 2021-06-11 00:00:00 Completed [facility] Influenza Virus Vaccine 2021-06-11 00:00:00 Completed [facility] Influenza Virus Vaccine 2021-06-11 00:00:00 Completed [facility] Influenza Virus Vaccine 2021-06-11 00:00:00 Completed [facility] Influenza Virus Vaccine 2021-06-11 00:00:00 Completed [facility] Influenza Virus Vaccine 2021-06-11 00:00:00 Completed [facility] Influenza Virus Vaccine 2021-06-11 00:00:00 Completed [facility] Influenza Virus Vaccine 2021-06-11 00:00:00 Completed [facility] Influenza Virus Vaccine 2021-06-11 00:00:00 Completed [facility] Influenza Virus Vaccine 2021-06-11 00:00:00 Completed [facility] Influenza Virus Vaccine 2021-06-11 00:00:00 Completed [facility] Influenza Virus Vaccine Quad .5 mL IM 6+ MO 2021-06-11 00:00:00 Completed [facility] Influenza Virus Vaccine 2021-06-11 00:00:00 Completed [facility] Influenza Virus Vaccine Quad .5 mL IM 6+ MO 2021-06-11 00:00:00 Completed [facility] Influenza Virus Vaccine 2021-06-11 00:00:00 Completed [facility] Influenza Virus Vaccine Quad .5 mL IM 6+ MO 2021-06-11 00:00:00 Completed [facility] Influenza Virus Vaccine 2021-06-11 00:00:00 Completed [facility] Influenza Virus Vaccine Quad .5 mL IM 6+ MO 2021-06-11 00:00:00 Completed [facility] Influenza Virus Vaccine 2021-06-11 00:00:00 Completed [facility] Influenza Virus Vaccine Quad .5 mL IM 6+ MO 2021-06-11 00:00:00 Completed [facility] Influenza Virus Vaccine 2021-06-11 00:00:00 Completed [facility] Influenza Virus Vaccine Quad .5 mL IM 6+ MO 2021-06-11 00:00:00 Completed [facility] Influenza Virus Vaccine 2021-06-11 00:00:00 Completed [facility] Influenza Virus Vaccine Quad .5 mL IM 6+ MO 2021-06-11 00:00:00 Completed [facility] Influenza Virus Vaccine 2021-06-11 00:00:00 Completed [facility] Influenza Virus Vaccine Quad .5 mL IM 6+ MO 2021-06-11 00:00:00 Completed [facility] Influenza Virus Vaccine 2021-06-11 00:00:00 Completed [facility] Influenza Virus Vaccine Quad .5 mL IM 6+ MO 2021-06-11 00:00:00 Completed [facility] Influenza Virus Vaccine 2021-06-11 00:00:00 Completed [facility] Influenza Virus Vaccine Quad .5 mL IM 6+ MO 2021-06-11 00:00:00 Completed [facility] Influenza Virus Vaccine 2021-06-11 00:00:00 Completed [facility] Influenza Virus Vaccine Quad .5 mL IM 6+ MO 2021-06-11 00:00:00 Completed [facility] Influenza Virus Vaccine 2021-06-11 00:00:00 Completed [facility] Influenza Virus Vaccine Quad .5 mL IM 6+ MO 2021-06-11 00:00:00 Completed [facility] Influenza Virus Vaccine 2021-06-11 00:00:00 Completed [facility] Influenza Virus Vaccine Quad .5 mL IM 6+ MO (FLUZONE/FLULAVAL/F LUARIX) 2021-06-11 00:00:00 Completed [facility] Influenza Virus Vaccine 2021-06-11 00:00:00 Completed [facility] Influenza Virus Vaccine Quad .5 mL IM 6+ MO (FLUZONE/FLULAVAL/F LUARIX) 2021-06-11 00:00:00 Completed [facility] Influenza Virus Vaccine 2021-06-11 00:00:00 Completed [facility] Influenza Virus Vaccine Quad .5 mL IM 6+ MO (FLUZONE/FLULAVAL/F LUARIX) 2021-06-11 00:00:00 Completed [facility] Influenza Virus Vaccine 2020-05-19 00:00:00 Completed [facility] Influenza Virus Vaccine 2020-05-19 00:00:00 Completed [facility] Influenza Virus Vaccine 2020-05-19 00:00:00 Completed [facility] Influenza Virus Vaccine 2020-05-19 00:00:00 Completed [facility] Influenza Virus Vaccine 2020-05-19 00:00:00 Completed [facility] Influenza Virus Vaccine 2020-05-19 00:00:00 Completed [facility] Influenza Virus Vaccine 2020-05-19 00:00:00 Completed [facility] Influenza Virus Vaccine 2020-05-19 00:00:00 Completed [facility] Influenza Virus Vaccine 2020-05-19 00:00:00 Completed [facility] Influenza Virus Vaccine 2020-05-19 00:00:00 Completed [facility] Influenza Virus Vaccine 2020-05-19 00:00:00 Completed [facility] Influenza Virus Vaccine 2020-05-19 00:00:00 Completed [facility] Influenza Virus Vaccine 2020-05-19 00:00:00 Completed [facility] Influenza Virus Vaccine 2020-05-19 00:00:00 Completed [facility] Influenza Virus Vaccine 2020-05-19 00:00:00 Completed [facility] Influenza Virus Vaccine 2020-05-19 00:00:00 Completed [facility] Influenza Virus Vaccine 2020-05-19 00:00:00 Completed [facility] Influenza Virus Vaccine 2020-05-19 00:00:00 Completed [facility] Influenza Virus Vaccine 2020-05-19 00:00:00 Completed [facility] Influenza Virus Vaccine 2020-05-19 00:00:00 Completed [facility] Influenza Virus Vaccine 2020-05-19 00:00:00 Completed [facility] Influenza Virus Vaccine 2020-05-19 00:00:00 Completed [facility] Influenza Virus Vaccine 2020-05-19 00:00:00 Completed [facility] Influenza Virus Vaccine 2020-05-19 00:00:00 Completed [facility] Influenza Virus Vaccine 2020-05-19 00:00:00 Completed [facility] Influenza Virus Vaccine 2020-05-19 00:00:00 Completed [facility] Influenza Virus Vaccine 2020-05-19 00:00:00 Completed [facility] Influenza Virus Vaccine 2020-05-19 00:00:00 Completed [facility] Influenza Virus Vaccine 2020-05-19 00:00:00 Completed [facility] Influenza Virus Vaccine 2020-05-19 00:00:00 Completed [facility] Influenza Virus Vaccine 2020-05-19 00:00:00 Completed [facility] Influenza Virus Vaccine 2020-05-19 00:00:00 Completed [facility] Influenza Virus Vaccine 2020-05-19 00:00:00 Completed [facility] Influenza Virus Vaccine 2020-05-19 00:00:00 Completed [facility] Influenza Virus Vaccine 2020-05-19 00:00:00 Completed [facility] Influenza Virus Vaccine 2020-05-19 00:00:00 Completed [facility] Influenza Virus Vaccine 2020-05-19 00:00:00 Completed [facility] Influenza Virus Vaccine 2020-05-19 00:00:00 Completed [facility] Influenza Virus Vaccine 2020-05-19 00:00:00 Completed [facility] Influenza Virus Vaccine 2020-05-19 00:00:00 Completed [facility] Influenza Virus Vaccine 2020-05-19 00:00:00 Completed [facility] Influenza Virus Vaccine 2020-05-19 00:00:00 Completed [facility] Influenza Virus Vaccine 2020-05-19 00:00:00 Completed [facility] Influenza Virus Vaccine 2020-05-19 00:00:00 Completed [facility] Influenza Virus Vaccine 2020-05-19 00:00:00 Completed [facility] Influenza Virus Vaccine 2020-05-19 00:00:00 Completed [facility] Influenza Virus Vaccine 2020-05-19 00:00:00 Completed [facility] Influenza Virus Vaccine 2020-05-19 00:00:00 Completed [facility] Influenza Virus Vaccine 2020-05-19 00:00:00 Completed [facility] Influenza Virus Vaccine 2020-05-19 00:00:00 Completed [facility] Influenza Virus Vaccine 2020-05-19 00:00:00 Completed [facility] Influenza Virus Vaccine 2020-05-19 00:00:00 Completed [facility] Influenza Virus Vaccine 2020-05-19 00:00:00 Completed [facility] Influenza Virus Vaccine 2020-05-19 00:00:00 Completed [facility] Influenza Virus Vaccine 2020-05-19 00:00:00 Completed [facility] Influenza Virus Vaccine Recomb Quad IM, Preserv and ABX Free 18-64 YRS 2020-05-16 00:00:00 Completed [facility] Influenza Virus Vaccine Recomb Quad IM, Preserv and ABX Free 18-64 YRS 2020-05-16 00:00:00 Completed [facility] Influenza Virus Vaccine Recomb Quad IM, Preserv and ABX Free 18-64 YRS 2020-05-16 00:00:00 Completed [facility] Influenza Virus Vaccine Recomb Quad IM, Preserv and ABX Free 18-64 YRS 2020-05-16 00:00:00 Completed [facility] Influenza Virus Vaccine Recomb Quad IM, Preserv and ABX Free 18-64 YRS 2020-05-16 00:00:00 Completed [facility] Influenza Virus Vaccine Recomb Quad IM, Preserv and ABX Free 18-64 YRS 2020-05-16 00:00:00 Completed [facility] Influenza Virus Vaccine Recomb Quad IM, Preserv and ABX Free 18-64 YRS 2020-05-16 00:00:00 Completed [facility] Influenza Virus Vaccine Recomb Quad IM, Preserv and ABX Free 18-64 YRS 2020-05-16 00:00:00 Completed [facility] Influenza Virus Vaccine Recomb Quad IM, Preserv and ABX Free 18-64 YRS 2020-05-16 00:00:00 Completed [facility] Influenza Virus Vaccine Recomb Quad IM, Preserv and ABX Free 18-64 YRS 2020-05-16 00:00:00 Completed [facility] Influenza Virus Vaccine Recomb Quad IM, Preserv and ABX Free 18-64 YRS 2020-05-16 00:00:00 Completed [facility] Influenza Virus Vaccine Recomb Quad IM, Preserv and ABX Free 18-64 YRS 2020-05-16 00:00:00 Completed [facility] Influenza Virus Vaccine Recomb Quad IM, Preserv and ABX Free 18-64 YRS 2020-05-16 00:00:00 Completed [facility] Influenza Virus Vaccine Recomb Quad IM, Preserv and ABX Free 18-64 YRS 2020-05-16 00:00:00 Completed [facility] Influenza Virus Vaccine Recomb Quad IM, Preserv and ABX Free 18-64 YRS 2020-05-16 00:00:00 Completed [facility] Influenza Virus Vaccine Recomb Quad IM, Preserv and ABX Free 18-64 YRS 2020-05-16 00:00:00 Completed [facility] Influenza Virus Vaccine Recomb Quad IM, Preserv and ABX Free 18-64 YRS 2020-05-16 00:00:00 Completed [facility] Influenza Virus Vaccine Recomb Quad IM, Preserv and ABX Free 18-64 YRS 2020-05-16 00:00:00 Completed [facility] Influenza Virus Vaccine Recomb Quad IM, Preserv and ABX Free 18-64 YRS 2020-05-16 00:00:00 Completed [facility] Influenza Virus Vaccine Recomb Quad IM, Preserv and ABX Free 18-64 YRS 2020-05-16 00:00:00 Completed [facility] Influenza Virus Vaccine Recomb Quad IM, Preserv and ABX Free 18-64 YRS 2020-05-16 00:00:00 Completed [facility] Influenza Virus Vaccine Recomb Quad IM, Preserv and ABX Free 18-64 YRS 2020-05-16 00:00:00 Completed [facility] Influenza Virus Vaccine Recomb Quad IM, Preserv and ABX Free 18-64 YRS 2020-05-16 00:00:00 Completed [facility] Influenza Virus Vaccine Recomb Quad IM, Preserv and ABX Free 18-64 YRS 2020-05-16 00:00:00 Completed [facility] Influenza Virus Vaccine Recomb Quad IM, Preserv and ABX Free 18-64 YRS 2020-05-16 00:00:00 Completed [facility] Influenza Virus Vaccine Recomb Quad IM, Preserv and ABX Free 18-64 YRS 2020-05-16 00:00:00 Completed [facility] Influenza Virus Vaccine Recomb Quad IM, Preserv and ABX Free 18-64 YRS 2020-05-16 00:00:00 Completed [facility] Influenza Virus Vaccine Recomb Quad IM, Preserv and ABX Free 18-64 YRS 2020-05-16 00:00:00 Completed [facility] Influenza Virus Vaccine Recomb Quad IM, Preserv and ABX Free 18-64 YRS 2020-05-16 00:00:00 Completed [facility] Influenza Virus Vaccine Recomb Quad IM, Preserv and ABX Free 18-64 YRS 2020-05-16 00:00:00 Completed [facility] Influenza Virus Vaccine Recomb Quad IM, Preserv and ABX Free 18-64 YRS 2020-05-16 00:00:00 Completed [facility] Influenza Virus Vaccine Recomb Quad IM, Preserv and ABX Free 18-64 YRS 2020-05-16 00:00:00 Completed [facility] Influenza Virus Vaccine Recomb Quad IM, Preserv and ABX Free 18-64 YRS 2020-05-16 00:00:00 Completed [facility] Influenza Virus Vaccine Recomb Quad IM, Preserv and ABX Free 18-64 YRS 2020-05-16 00:00:00 Completed [facility] Influenza Virus Vaccine Recomb Quad IM, Preserv and ABX Free 18-64 YRS 2020-05-16 00:00:00 Completed [facility] Influenza Virus Vaccine Recomb Quad IM, Preserv and ABX Free 18-64 YRS 2020-05-16 00:00:00 Completed [facility] Influenza Virus Vaccine Recomb Quad IM, Preserv and ABX Free 18-64 YRS 2020-05-16 00:00:00 Completed [facility] Influenza Virus Vaccine Recomb Quad IM, Preserv and ABX Free 18-64 YRS 2020-05-16 00:00:00 Completed [facility] Influenza Virus Vaccine Recomb Quad IM, Preserv and ABX Free 18-64 YRS 2020-05-16 00:00:00 Completed [facility] Influenza Virus Vaccine Recomb Quad IM, Preserv and ABX Free 18-64 YRS 2020-05-16 00:00:00 Completed [facility] Influenza Virus Vaccine Recomb Quad IM, Preserv and ABX Free 18-64 YRS 2020-05-16 00:00:00 Completed [facility] Influenza Virus Vaccine Recomb Quad IM, Preserv and ABX Free 18-64 YRS 2020-05-16 00:00:00 Completed [facility] Influenza Virus Vaccine Recomb Quad IM, Preserv and ABX Free 18-64 YRS 2020-05-16 00:00:00 Completed [facility] Influenza Virus Vaccine Recomb Quad IM, Preserv and ABX Free 18-64 YRS 2020-05-16 00:00:00 Completed [facility] Influenza Virus Vaccine Recomb Quad IM, Preserv and ABX Free 18-64 YRS 2020-05-16 00:00:00 Completed [facility] Influenza Virus Vaccine Recomb Quad IM, Preserv and ABX Free 18-64 YRS 2020-05-16 00:00:00 Completed [facility] Influenza Virus Vaccine Recomb Quad IM, Preserv and ABX Free 18-64 YRS 2020-05-16 00:00:00 Completed [facility] Influenza Virus Vaccine Recomb Quad IM, Preserv and ABX Free 18-64 YRS 2020-05-16 00:00:00 Completed [facility] Influenza Virus Vaccine Recomb Quad IM, Preserv and ABX Free 18-64 YRS 2020-05-16 00:00:00 Completed [facility] Influenza Virus Vaccine Recomb Quad IM, Preserv and ABX Free 18-64 YRS 2020-05-16 00:00:00 Completed [facility] Influenza Virus Vaccine Recomb Quad IM, Preserv and ABX Free 18-64 YRS 2020-05-16 00:00:00 Completed [facility] Influenza Virus Vaccine Recomb Quad IM, Preserv and ABX Free 18-64 YRS 2020-05-16 00:00:00 Completed [facility] Influenza Virus Vaccine Recomb Quad IM, Preserv and ABX Free 18-64 YRS 2020-05-16 00:00:00 Completed [facility] Influenza Virus Vaccine Recomb Quad IM, Preserv and ABX Free 18-64 YRS 2020-05-16 00:00:00 Completed [facility] Influenza Virus Vaccine Recomb Quad IM, Preserv and ABX Free 18-64 YRS 2020-05-16 00:00:00 Completed [facility] TDAP (ADACEL) VACCINE 2019-05-21 00:00:00 Completed [facility] TDAP (ADACEL) VACCINE 2019-05-21 00:00:00 Completed [facility] TDAP (ADACEL) VACCINE 2019-05-21 00:00:00 Completed [facility] TDAP (ADACEL) VACCINE 2019-05-21 00:00:00 Completed [facility] TDAP (ADACEL) VACCINE 2019-05-21 00:00:00 Completed [facility] TDAP (ADACEL) VACCINE 2019-05-21 00:00:00 Completed [facility] TDAP (ADACEL) VACCINE 2019-05-21 00:00:00 Completed [facility] TDAP (ADACEL) VACCINE 2019-05-21 00:00:00 Completed [facility] TDAP (ADACEL) VACCINE 2019-05-21 00:00:00 Completed [facility] TDAP (ADACEL) VACCINE 2019-05-21 00:00:00 Completed [facility] TDAP (ADACEL) VACCINE 2019-05-21 00:00:00 Completed [facility] TDAP (ADACEL) VACCINE 2019-05-21 00:00:00 Completed [facility] TDAP (ADACEL) VACCINE 2019-05-21 00:00:00 Completed [facility] TDAP (ADACEL) VACCINE 2019-05-21 00:00:00 Completed [facility] TDAP (ADACEL) VACCINE 2019-05-21 00:00:00 Completed [facility] TDAP (ADACEL) VACCINE 2019-05-21 00:00:00 Completed [facility] TDAP (ADACEL) VACCINE 2019-05-21 00:00:00 Completed [facility] TDAP (ADACEL) VACCINE 2019-05-21 00:00:00 Completed [facility] TDAP (ADACEL) VACCINE 2019-05-21 00:00:00 Completed [facility] TDAP (ADACEL) VACCINE 2019-05-21 00:00:00 Completed [facility] TDAP (ADACEL) VACCINE 2019-05-21 00:00:00 Completed [facility] TDAP (ADACEL) VACCINE 2019-05-21 00:00:00 Completed [facility] TDAP (ADACEL) VACCINE 2019-05-21 00:00:00 Completed [facility] TDAP (ADACEL) VACCINE 2019-05-21 00:00:00 Completed [facility] TDAP (ADACEL) VACCINE 2019-05-21 00:00:00 Completed [facility] TDAP (ADACEL) VACCINE 2019-05-21 00:00:00 Completed [facility] TDAP (ADACEL) VACCINE 2019-05-21 00:00:00 Completed [facility] TDAP (ADACEL) VACCINE 2019-05-21 00:00:00 Completed [facility] TDAP (ADACEL) VACCINE 2019-05-21 00:00:00 Completed [facility] TDAP (ADACEL) VACCINE 2019-05-21 00:00:00 Completed [facility] TDAP (ADACEL) VACCINE 2019-05-21 00:00:00 Completed [facility] TDAP (ADACEL) VACCINE 2019-05-21 00:00:00 Completed [facility] TDAP (ADACEL) VACCINE 2019-05-21 00:00:00 Completed [facility] TDAP (ADACEL) VACCINE 2019-05-21 00:00:00 Completed [facility] TDAP (ADACEL) VACCINE 2019-05-21 00:00:00 Completed [facility] TDAP (ADACEL) VACCINE 2019-05-21 00:00:00 Completed [facility] TDAP (ADACEL) VACCINE 2019-05-21 00:00:00 Completed [facility] TDAP (ADACEL) VACCINE 2019-05-21 00:00:00 Completed [facility] TDAP (ADACEL) VACCINE 2019-05-21 00:00:00 Completed [facility] TDAP (ADACEL) VACCINE 2019-05-21 00:00:00 Completed [facility] TDAP (ADACEL) VACCINE 2019-05-21 00:00:00 Completed [facility] TDAP (ADACEL) VACCINE 2019-05-21 00:00:00 Completed [facility] TDAP (ADACEL) VACCINE 2019-05-21 00:00:00 Completed [facility] TDAP (ADACEL) VACCINE 2019-05-21 00:00:00 Completed [facility] TDAP (ADACEL) VACCINE 2019-05-21 00:00:00 Completed [facility] TDAP (ADACEL) VACCINE 2019-05-21 00:00:00 Completed [facility] TDAP (ADACEL) VACCINE 2019-05-21 00:00:00 Completed [facility] TDAP (ADACEL) VACCINE 2019-05-21 00:00:00 Completed [facility] TDAP (ADACEL) VACCINE 2019-05-21 00:00:00 Completed [facility] TDAP (ADACEL) VACCINE 2019-05-21 00:00:00 Completed [facility] TDAP (ADACEL) VACCINE 2019-05-21 00:00:00 Completed [facility] TDAP (ADACEL) VACCINE 2019-05-21 00:00:00 Completed [facility] TDAP (ADACEL) VACCINE 2019-05-21 00:00:00 Completed [facility] TDAP (ADACEL) VACCINE 2019-05-21 00:00:00 Completed [facility] TDAP (ADACEL) VACCINE 2019-05-21 00:00:00 Completed [facility] Influenza Virus Vaccine Quad .5 mL IM 6+ MO 2019-02-06 00:00:00 Completed [facility] Influenza Virus Vaccine Quad .5 mL IM 6+ MO 2019-02-06 00:00:00 Completed [facility] Influenza Virus Vaccine Quad .5 mL IM 6+ MO 2019-02-06 00:00:00 Completed [facility] Influenza Virus Vaccine Quad .5 mL IM 6+ MO 2019-02-06 00:00:00 Completed [facility] Influenza Virus Vaccine Quad .5 mL IM 6+ MO 2019-02-06 00:00:00 Completed [facility] Influenza Virus Vaccine Quad .5 mL IM 6+ MO 2019-02-06 00:00:00 Completed [facility] Influenza Virus Vaccine Quad .5 mL IM 6+ MO 2019-02-06 00:00:00 Completed [facility] Influenza Virus Vaccine Quad .5 mL IM 6+ MO 2019-02-06 00:00:00 Completed [facility] Influenza Virus Vaccine Quad .5 mL IM 6+ MO 2019-02-06 00:00:00 Completed [facility] Influenza Virus Vaccine Quad .5 mL IM 6+ MO 2019-02-06 00:00:00 Completed [facility] Influenza Virus Vaccine Quad .5 mL IM 6+ MO 2019-02-06 00:00:00 Completed [facility] Influenza Virus Vaccine Quad .5 mL IM 6+ MO 2019-02-06 00:00:00 Completed [facility] Influenza Virus Vaccine Quad .5 mL IM 6+ MO 2019-02-06 00:00:00 Completed [facility] Influenza Virus Vaccine Quad .5 mL IM 6+ MO 2019-02-06 00:00:00 Completed [facility] Influenza Virus Vaccine Quad .5 mL IM 6+ MO 2019-02-06 00:00:00 Completed [facility] Influenza Virus Vaccine Quad .5 mL IM 6+ MO 2019-02-06 00:00:00 Completed [facility] Influenza Virus Vaccine Quad .5 mL IM 6+ MO 2019-02-06 00:00:00 Completed [facility] Influenza Virus Vaccine Quad .5 mL IM 6+ MO 2019-02-06 00:00:00 Completed [facility] Influenza Virus Vaccine Quad .5 mL IM 6+ MO 2019-02-06 00:00:00 Completed [facility] Influenza Virus Vaccine Quad .5 mL IM 6+ MO 2019-02-06 00:00:00 Completed [facility] Influenza Virus Vaccine Quad .5 mL IM 6+ MO 2019-02-06 00:00:00 Completed [facility] Influenza Virus Vaccine Quad .5 mL IM 6+ MO 2019-02-06 00:00:00 Completed [facility] Influenza Virus Vaccine Quad .5 mL IM 6+ MO 2019-02-06 00:00:00 Completed [facility] Influenza Virus Vaccine Quad .5 mL IM 6+ MO 2019-02-06 00:00:00 Completed [facility] Influenza Virus Vaccine Quad .5 mL IM 6+ MO 2019-02-06 00:00:00 Completed [facility] Influenza Virus Vaccine Quad .5 mL IM 6+ MO 2019-02-06 00:00:00 Completed [facility] Influenza Virus Vaccine Quad .5 mL IM 6+ MO 2019-02-06 00:00:00 Completed [facility] Influenza Virus Vaccine Quad .5 mL IM 6+ MO 2019-02-06 00:00:00 Completed [facility] Influenza Virus Vaccine Quad .5 mL IM 6+ MO 2019-02-06 00:00:00 Completed [facility] Influenza Virus Vaccine Quad .5 mL IM 6+ MO 2019-02-06 00:00:00 Completed [facility] Influenza Virus Vaccine Quad .5 mL IM 6+ MO 2019-02-06 00:00:00 Completed [facility] Influenza Virus Vaccine Quad .5 mL IM 6+ MO 2019-02-06 00:00:00 Completed [facility] Influenza Virus Vaccine Quad .5 mL IM 6+ MO 2019-02-06 00:00:00 Completed [facility] Influenza Virus Vaccine Quad .5 mL IM 6+ MO 2019-02-06 00:00:00 Completed [facility] Influenza Virus Vaccine Quad .5 mL IM 6+ MO 2019-02-06 00:00:00 Completed [facility] Influenza Virus Vaccine Quad .5 mL IM 6+ MO 2019-02-06 00:00:00 Completed [facility] Influenza Virus Vaccine Quad .5 mL IM 6+ MO 2019-02-06 00:00:00 Completed [facility] Influenza Virus Vaccine Quad .5 mL IM 6+ MO 2019-02-06 00:00:00 Completed [facility] Influenza Virus Vaccine Quad .5 mL IM 6+ MO 2019-02-06 00:00:00 Completed [facility] Influenza Virus Vaccine Quad .5 mL IM 6+ MO 2019-02-06 00:00:00 Completed [facility] Influenza Virus Vaccine Quad .5 mL IM 6+ MO 2019-02-06 00:00:00 Completed [facility] Influenza Virus Vaccine Quad .5 mL IM 6+ MO 2019-02-06 00:00:00 Completed [facility] Influenza Virus Vaccine Quad .5 mL IM 6+ MO 2019-02-06 00:00:00 Completed [facility] Influenza Virus Vaccine Quad .5 mL IM 6+ MO 2019-02-06 00:00:00 Completed [facility] Influenza Virus Vaccine Quad .5 mL IM 6+ MO 2019-02-06 00:00:00 Completed [facility] Influenza Virus Vaccine Quad .5 mL IM 6+ MO 2019-02-06 00:00:00 Completed [facility] Influenza Virus Vaccine Quad .5 mL IM 6+ MO 2019-02-06 00:00:00 Completed [facility] Influenza Virus Vaccine Quad .5 mL IM 6+ MO 2019-02-06 00:00:00 Completed [facility] Influenza Virus Vaccine Quad .5 mL IM 6+ MO 2019-02-06 00:00:00 Completed [facility] Influenza Virus Vaccine Quad .5 mL IM 6+ MO 2019-02-06 00:00:00 Completed [facility] Influenza Virus Vaccine Quad .5 mL IM 6+ MO 2019-02-06 00:00:00 Completed [facility] Influenza Virus Vaccine Quad .5 mL IM 6+ MO 2019-02-06 00:00:00 Completed [facility] Influenza Virus Vaccine Quad .5 mL IM 6+ MO (FLUZONE/FLULAVAL/F LUARIX) 2019-02-06 00:00:00 Completed [facility] Influenza Virus Vaccine Quad .5 mL IM 6+ MO (FLUZONE/FLULAVAL/F LUARIX) 2019-02-06 00:00:00 Completed [facility] Influenza Virus Vaccine Quad .5 mL IM 6+ MO (FLUZONE/FLULAVAL/F LUARIX) 2019-02-06 00:00:00 Completed [facility] Influenza Virus Vaccine Quad .5 mL IM 6+ MO (FLUZONE/FLULAVAL/F LUARIX) Unknown Completed [facility] TDAP (ADACEL) VACCINE Unknown Completed [facility] Influenza Virus Vaccine Recomb Quad IM, Preserv and ABX Free 18-64 YRS Unknown Completed [facility] Influenza Virus Vaccine Unknown Completed [facility] Influenza Virus Vaccine Quad IM, Preserv and ABX Free 6 MO-64 YRS (FLUCELVAX) Unknown Completed [facility] Influenza Virus Vaccine Quad .5 mL IM 6+ MO (FLUZONE/FLULAVAL/F LUARIX) Unknown Completed [facility] TDAP (ADACEL) VACCINE Unknown Completed [facility] Influenza Virus Vaccine Recomb Quad IM, Preserv and ABX Free 18-64 YRS Unknown Completed [facility] Influenza Virus Vaccine Unknown Completed [facility] Influenza Virus Vaccine Quad IM, Preserv and ABX Free 6 MO-64 YRS (FLUCELVAX) Unknown Completed [facility] Influenza Virus Vaccine Quad .5 mL IM 6+ MO (FLUZONE/FLULAVAL/F LUARIX) Unknown Completed [facility] TDAP (ADACEL) VACCINE Unknown Completed [facility] Influenza Virus Vaccine Recomb Quad IM, Preserv and ABX Free 18-64 YRS Unknown Completed [facility] Influenza Virus Vaccine Unknown Completed [facility] Influenza Virus Vaccine Quad .5 mL IM 6+ MO (FLUZONE/FLULAVAL/F LUARIX) Unknown Completed [facility] TDAP (ADACEL) VACCINE Unknown Completed [facility] Influenza Virus Vaccine Recomb Quad IM, Preserv and ABX Free 18-64 YRS Unknown Completed [facility] Influenza Virus Vaccine Unknown Completed [facility] Influenza Virus Vaccine Quad .5 mL IM 6+ MO (FLUZONE/FLULAVAL/F LUARIX) Unknown Completed [facility] TDAP (ADACEL) VACCINE Unknown Completed [facility] Influenza Virus Vaccine Recomb Quad IM, Preserv and ABX Free 18-64 YRS Unknown Completed [facility] Influenza Virus Vaccine Unknown Completed [facility] Influenza Virus Vaccine Quad .5 mL IM 6+ MO (FLUZONE/FLULAVAL/F LUARIX) Unknown Completed [facility] TDAP (ADACEL) VACCINE Unknown Completed [facility] Influenza Virus Vaccine Recomb Quad IM, Preserv and ABX Free 18-64 YRS Unknown Completed [facility] Influenza Virus Vaccine Unknown Completed [facility] Influenza Virus Vaccine Quad .5 mL IM 6+ MO (FLUZONE/FLULAVAL/F LUARIX) Unknown Completed [facility] TDAP (ADACEL) VACCINE Unknown Completed [facility] Influenza Virus Vaccine Recomb Quad IM, Preserv and ABX Free 18-64 YRS Unknown Completed [facility] Influenza Virus Vaccine Unknown Completed [facility] Influenza Virus Vaccine Quad .5 mL IM 6+ MO (FLUZONE/FLULAVAL/F LUARIX) Unknown Completed [facility] TDAP (ADACEL) VACCINE Unknown Completed [facility] Influenza Virus Vaccine Recomb Quad IM, Preserv and ABX Free 18-64 YRS Unknown Completed [facility] Influenza Virus Vaccine Unknown Completed [facility] Influenza Virus Vaccine Quad .5 mL IM 6+ MO (FLUZONE/FLULAVAL/F LUARIX) Unknown Completed [facility] TDAP (ADACEL) VACCINE Unknown Completed [facility] Influenza Virus Vaccine Recomb Quad IM, Preserv and ABX Free 18-64 YRS Unknown Completed [facility] Influenza Virus Vaccine Unknown Completed [facility] Influenza Virus Vaccine Quad .5 mL IM 6+ MO (FLUZONE/FLULAVAL/F LUARIX) Unknown Completed [facility] TDAP (ADACEL) VACCINE Unknown Completed [facility] Influenza Virus Vaccine Recomb Quad IM, Preserv and ABX Free 18-64 YRS Unknown Completed [facility] Influenza Virus Vaccine Unknown Completed [facility] Influenza Virus Vaccine Quad .5 mL IM 6+ MO (FLUZONE/FLULAVAL/F LUARIX) Unknown Completed [facility] TDAP (ADACEL) VACCINE Unknown Completed [facility] Influenza Virus Vaccine Recomb Quad IM, Preserv and ABX Free 18-64 YRS Unknown Completed [facility] Influenza Virus Vaccine Unknown Completed [facility] Influenza Virus Vaccine Quad .5 mL IM 6+ MO (FLUZONE/FLULAVAL/F LUARIX) Unknown Completed [facility] TDAP (ADACEL) VACCINE Unknown Completed [facility] Influenza Virus Vaccine Recomb Quad IM, Preserv and ABX Free 18-64 YRS Unknown Completed [facility] Influenza Virus Vaccine Unknown Completed [facility] Influenza Virus Vaccine Quad .5 mL IM 6+ MO (FLUZONE/FLULAVAL/F LUARIX) Unknown Completed [facility] TDAP (ADACEL) VACCINE Unknown Completed [facility] Influenza Virus Vaccine Recomb Quad IM, Preserv and ABX Free 18-64 YRS Unknown Completed [facility] Influenza Virus Vaccine Unknown Completed [facility] Influenza Virus Vaccine Quad .5 mL IM 6+ MO (FLUZONE/FLULAVAL/F LUARIX) Unknown Completed [facility] TDAP (ADACEL) VACCINE Unknown Completed [facility] Influenza Virus Vaccine Recomb Quad IM, Preserv and ABX Free 18-64 YRS Unknown Completed [facility] Influenza Virus Vaccine Unknown Completed [facility] Influenza Virus Vaccine Quad .5 mL IM 6+ MO (FLUZONE/FLULAVAL/F LUARIX) Unknown Completed [facility] TDAP (ADACEL) VACCINE Unknown Completed [facility] Influenza Virus Vaccine Recomb Quad IM, Preserv and ABX Free 18-64 YRS Unknown Completed [facility] Influenza Virus Vaccine Unknown Completed [facility] Influenza Virus Vaccine Quad .5 mL IM 6+ MO (FLUZONE/FLULAVAL/F LUARIX) Unknown Completed [facility] TDAP (ADACEL) VACCINE Unknown Completed [facility] Influenza Virus Vaccine Recomb Quad IM, Preserv and ABX Free 18-64 YRS Unknown Completed [facility] Influenza Virus Vaccine Unknown Completed [facility] Influenza Virus Vaccine Quad .5 mL IM 6+ MO (FLUZONE/FLULAVAL/F LUARIX) Unknown Completed [facility] TDAP (ADACEL) VACCINE Unknown Completed [facility] Influenza Virus Vaccine Recomb Quad IM, Preserv and ABX Free 18-64 YRS Unknown Completed [facility] Influenza Virus Vaccine Unknown Completed [facility] Influenza Virus Vaccine Quad .5 mL IM 6+ MO (FLUZONE/FLULAVAL/F LUARIX) Unknown Completed [facility] TDAP (ADACEL) VACCINE Unknown Completed [facility] Influenza Virus Vaccine Recomb Quad IM, Preserv and ABX Free 18-64 YRS Unknown Completed [facility] Influenza Virus Vaccine Unknown Completed [facility] Influenza Virus Vaccine Quad .5 mL IM 6+ MO (FLUZONE/FLULAVAL/F LUARIX) Unknown Completed [facility] TDAP (ADACEL) VACCINE Unknown Completed [facility] Influenza Virus Vaccine Recomb Quad IM, Preserv and ABX Free 18-64 YRS Unknown Completed [facility] Influenza Virus Vaccine Unknown Completed [facility] Influenza Virus Vaccine Quad .5 mL IM 6+ MO (FLUZONE/FLULAVAL/F LUARIX) Unknown Completed [facility] TDAP (ADACEL) VACCINE Unknown Completed [facility] Influenza Virus Vaccine Recomb Quad IM, Preserv and ABX Free 18-64 YRS Unknown Completed [facility] Influenza Virus Vaccine Unknown Completed [facility] Influenza Virus Vaccine Quad .5 mL IM 6+ MO (FLUZONE/FLULAVAL/F LUARIX) Unknown Completed [facility] TDAP (ADACEL) VACCINE Unknown Completed [facility] Influenza Virus Vaccine Recomb Quad IM, Preserv and ABX Free 18-64 YRS Unknown Completed [facility] Influenza Virus Vaccine Unknown Completed [facility] Influenza Virus Vaccine Quad .5 mL IM 6+ MO (FLUZONE/FLULAVAL/F LUARIX) Unknown Completed [facility] TDAP (ADACEL) VACCINE Unknown Completed [facility] Influenza Virus Vaccine Recomb Quad IM, Preserv and ABX Free 18-64 YRS Unknown Completed [facility] Influenza Virus Vaccine Unknown Completed [facility] Influenza Virus Vaccine Quad .5 mL IM 6+ MO (FLUZONE/FLULAVAL/F LUARIX) Unknown Completed [facility] TDAP (ADACEL) VACCINE Unknown Completed [facility] Influenza Virus Vaccine Recomb Quad IM, Preserv and ABX Free 18-64 YRS Unknown Completed [facility] Influenza Virus Vaccine Unknown Completed [facility] Influenza Virus Vaccine Quad .5 mL IM 6+ MO (FLUZONE/FLULAVAL/F LUARIX) Unknown Completed [facility] TDAP (ADACEL) VACCINE Unknown Completed [facility] Influenza Virus Vaccine Recomb Quad IM, Preserv and ABX Free 18-64 YRS Unknown Completed [facility] Influenza Virus Vaccine Unknown Completed [facility] Influenza Virus Vaccine Quad .5 mL IM 6+ MO (FLUZONE/FLULAVAL/F LUARIX) Unknown Completed [facility] TDAP (ADACEL) VACCINE Unknown Completed [facility] Influenza Virus Vaccine Recomb Quad IM, Preserv and ABX Free 18-64 YRS Unknown Completed [facility] Influenza Virus Vaccine Unknown Completed [facility] Influenza Virus Vaccine Quad .5 mL IM 6+ MO (FLUZONE/FLULAVAL/F LUARIX) Unknown Completed [facility] TDAP (ADACEL) VACCINE Unknown Completed [facility] Influenza Virus Vaccine Recomb Quad IM, Preserv and ABX Free 18-64 YRS Unknown Completed [facility] Influenza Virus Vaccine Unknown Completed [facility] Influenza Virus Vaccine Quad .5 mL IM 6+ MO (FLUZONE/FLULAVAL/F LUARIX) Unknown Completed [facility] TDAP (ADACEL) VACCINE Unknown Completed [facility] Influenza Virus Vaccine Recomb Quad IM, Preserv and ABX Free 18-64 YRS Unknown Completed [facility] Influenza Virus Vaccine Unknown Completed [facility] Influenza Virus Vaccine Quad .5 mL IM 6+ MO (FLUZONE/FLULAVAL/F LUARIX) Unknown Completed [facility] TDAP (ADACEL) VACCINE Unknown Completed [facility] Influenza Virus Vaccine Recomb Quad IM, Preserv and ABX Free 18-64 YRS Unknown Completed [facility] Influenza Virus Vaccine Unknown Completed [facility] Influenza Virus Vaccine Quad .5 mL IM 6+ MO (FLUZONE/FLULAVAL/F LUARIX) Unknown Completed [facility] TDAP (ADACEL) VACCINE Unknown Completed [facility] Influenza Virus Vaccine Recomb Quad IM, Preserv and ABX Free 18-64 YRS Unknown Completed [facility] Influenza Virus Vaccine Unknown Completed [facility] Influenza Virus Vaccine Quad .5 mL IM 6+ MO (FLUZONE/FLULAVAL/F LUARIX) Unknown Completed [facility] TDAP (ADACEL) VACCINE Unknown Completed [facility] Influenza Virus Vaccine Recomb Quad IM, Preserv and ABX Free 18-64 YRS Unknown Completed [facility] Influenza Virus Vaccine Unknown Completed [facility] Influenza Virus Vaccine Quad .5 mL IM 6+ MO (FLUZONE/FLULAVAL/F LUARIX) Unknown Completed [facility] TDAP (ADACEL) VACCINE Unknown Completed [facility] Influenza Virus Vaccine Recomb Quad IM, Preserv and ABX Free 18-64 YRS Unknown Completed [facility] Influenza Virus Vaccine Unknown Completed [facility] Influenza Virus Vaccine Quad .5 mL IM 6+ MO (FLUZONE/FLULAVAL/F LUARIX) Unknown Completed [facility] TDAP (ADACEL) VACCINE Unknown Completed [facility] Influenza Virus Vaccine Recomb Quad IM, Preserv and ABX Free 18-64 YRS Unknown Completed [facility] Influenza Virus Vaccine Unknown Completed [facility] Influenza Virus Vaccine Quad .5 mL IM 6+ MO (FLUZONE/FLULAVAL/F LUARIX) Unknown Completed [facility] TDAP (ADACEL) VACCINE Unknown Completed [facility] Influenza Virus Vaccine Recomb Quad IM, Preserv and ABX Free 18-64 YRS Unknown Completed [facility] Influenza Virus Vaccine Unknown Completed [facility] Influenza Virus Vaccine Quad .5 mL IM 6+ MO (FLUZONE/FLULAVAL/F LUARIX) Unknown Completed [facility] TDAP (ADACEL) VACCINE Unknown Completed [facility] Influenza Virus Vaccine Recomb Quad IM, Preserv and ABX Free 18-64 YRS Unknown Completed [facility] Influenza Virus Vaccine Unknown Completed [facility] Influenza Virus Vaccine Quad .5 mL IM 6+ MO (FLUZONE/FLULAVAL/F LUARIX) Unknown Completed [facility] TDAP (ADACEL) VACCINE Unknown Completed [facility] Influenza Virus Vaccine Recomb Quad IM, Preserv and ABX Free 18-64 YRS Unknown Completed [facility] Influenza Virus Vaccine Unknown Completed [facility] Influenza Virus Vaccine Quad .5 mL IM 6+ MO (FLUZONE/FLULAVAL/F LUARIX) Unknown Completed [facility] TDAP (ADACEL) VACCINE Unknown Completed [facility] Influenza Virus Vaccine Recomb Quad IM, Preserv and ABX Free 18-64 YRS Unknown Completed [facility] Influenza Virus Vaccine Unknown Completed [facility] Influenza Virus Vaccine Quad .5 mL IM 6+ MO (FLUZONE/FLULAVAL/F LUARIX) Unknown Completed [facility] TDAP (ADACEL) VACCINE Unknown Completed [facility] Influenza Virus Vaccine Recomb Quad IM, Preserv and ABX Free 18-64 YRS Unknown Completed [facility] Influenza Virus Vaccine Unknown Completed [facility] Influenza Virus Vaccine Quad .5 mL IM 6+ MO (FLUZONE/FLULAVAL/F LUARIX) Unknown Completed [facility] TDAP (ADACEL) VACCINE Unknown Completed [facility] Influenza Virus Vaccine Recomb Quad IM, Preserv and ABX Free 18-64 YRS Unknown Completed [facility] Influenza Virus Vaccine Unknown Completed [facility] Influenza Virus Vaccine Quad .5 mL IM 6+ MO (FLUZONE/FLULAVAL/F LUARIX) Unknown Completed [facility] TDAP (ADACEL) VACCINE Unknown Completed [facility] Influenza Virus Vaccine Recomb Quad IM, Preserv and ABX Free 18-64 YRS Unknown Completed [facility] Influenza Virus Vaccine Unknown Completed [facility] Influenza Virus Vaccine Quad .5 mL IM 6+ MO (FLUZONE/FLULAVAL/F LUARIX) Unknown Completed [facility] TDAP (ADACEL) VACCINE Unknown Completed [facility] Influenza Virus Vaccine Recomb Quad IM, Preserv and ABX Free 18-64 YRS Unknown Completed [facility] Influenza Virus Vaccine Unknown Completed [facility] Influenza Virus Vaccine Quad .5 mL IM 6+ MO (FLUZONE/FLULAVAL/F LUARIX) Unknown Completed [facility] TDAP (ADACEL) VACCINE Unknown Completed [facility] Influenza Virus Vaccine Recomb Quad IM, Preserv and ABX Free 18-64 YRS Unknown Completed [facility] Influenza Virus Vaccine Unknown Completed [facility] Influenza Virus Vaccine Quad .5 mL IM 6+ MO (FLUZONE/FLULAVAL/F LUARIX) Unknown Completed [facility] TDAP (ADACEL) VACCINE Unknown Completed [facility] Influenza Virus Vaccine Recomb Quad IM, Preserv and ABX Free 18-64 YRS Unknown Completed [facility] Influenza Virus Vaccine Unknown Completed [facility] Influenza Virus Vaccine Quad .5 mL IM 6+ MO (FLUZONE/FLULAVAL/F LUARIX) Unknown Completed [facility] TDAP (ADACEL) VACCINE Unknown Completed [facility] Influenza Virus Vaccine Recomb Quad IM, Preserv and ABX Free 18-64 YRS Unknown Completed [facility] Influenza Virus Vaccine Unknown Completed [facility] Influenza Virus Vaccine Quad .5 mL IM 6+ MO (FLUZONE/FLULAVAL/F LUARIX) Unknown Completed [facility] TDAP (ADACEL) VACCINE Unknown Completed [facility] Influenza Virus Vaccine Recomb Quad IM, Preserv and ABX Free 18-64 YRS Unknown Completed [facility] Influenza Virus Vaccine Unknown Completed [facility] Influenza Virus Vaccine Quad .5 mL IM 6+ MO (FLUZONE/FLULAVAL/F LUARIX) Unknown Completed [facility] TDAP (ADACEL) VACCINE Unknown Completed [facility] Influenza Virus Vaccine Recomb Quad IM, Preserv and ABX Free 18-64 YRS Unknown Completed [facility] Influenza Virus Vaccine Unknown Completed [facility] Influenza Virus Vaccine Quad .5 mL IM 6+ MO (FLUZONE/FLULAVAL/F LUARIX) Unknown Completed [facility] TDAP (ADACEL) VACCINE Unknown Completed [facility] Influenza Virus Vaccine Recomb Quad IM, Preserv and ABX Free 18-64 YRS Unknown Completed [facility] Influenza Virus Vaccine Unknown Completed [facility] Influenza Virus Vaccine Quad .5 mL IM 6+ MO (FLUZONE/FLULAVAL/F LUARIX) Unknown Completed [facility] TDAP (ADACEL) VACCINE Unknown Completed [facility] Influenza Virus Vaccine Recomb Quad IM, Preserv and ABX Free 18-64 YRS Unknown Completed [facility] Influenza Virus Vaccine Unknown Completed [facility] Influenza Virus Vaccine Quad .5 mL IM 6+ MO (FLUZONE/FLULAVAL/F LUARIX) Unknown Completed [facility] TDAP (ADACEL) VACCINE Unknown Completed [facility] Influenza Virus Vaccine Recomb Quad IM, Preserv and ABX Free 18-64 YRS Unknown Completed [facility] Influenza Virus Vaccine Unknown Completed [facility] Influenza Virus Vaccine Quad .5 mL IM 6+ MO (FLUZONE/FLULAVAL/F LUARIX) Unknown Completed [facility] TDAP (ADACEL) VACCINE Unknown Completed [facility] Influenza Virus Vaccine Recomb Quad IM, Preserv and ABX Free 18-64 YRS Unknown Completed [facility] Influenza Virus Vaccine Unknown Completed [facility] Influenza Virus Vaccine Quad .5 mL IM 6+ MO (FLUZONE/FLULAVAL/F LUARIX) Unknown Completed [facility] TDAP (ADACEL) VACCINE Unknown Completed [facility] Influenza Virus Vaccine Recomb Quad IM, Preserv and ABX Free 18-64 YRS Unknown Completed [facility] Influenza Virus Vaccine Unknown Completed [facility] Influenza Virus Vaccine Quad .5 mL IM 6+ MO (FLUZONE/FLULAVAL/F LUARIX) Unknown Completed [facility] TDAP (ADACEL) VACCINE Unknown Completed [facility] Influenza Virus Vaccine Recomb Quad IM, Preserv and ABX Free 18-64 YRS Unknown Completed [facility] Influenza Virus Vaccine Unknown Completed [facility] Influenza Virus Vaccine Quad .5 mL IM 6+ MO (FLUZONE/FLULAVAL/F LUARIX) Unknown Completed [facility] TDAP (ADACEL) VACCINE Unknown Completed [facility] Influenza Virus Vaccine Recomb Quad IM, Preserv and ABX Free 18-64 YRS Unknown Completed [facility] Influenza Virus Vaccine Unknown Completed [facility] Influenza Virus Vaccine Quad .5 mL IM 6+ MO (FLUZONE/FLULAVAL/F LUARIX) Unknown Completed [facility] TDAP (ADACEL) VACCINE Unknown Completed [facility] Influenza Virus Vaccine Recomb Quad IM, Preserv and ABX Free 18-64 YRS Unknown Completed [facility] Influenza Virus Vaccine Unknown Completed [facility] Influenza Virus Vaccine Quad .5 mL IM 6+ MO (FLUZONE/FLULAVAL/F LUARIX) Unknown Completed [facility] TDAP (ADACEL) VACCINE Unknown Completed [facility] Influenza Virus Vaccine Recomb Quad IM, Preserv and ABX Free 18-64 YRS Unknown Completed [facility] Influenza Virus Vaccine Unknown Completed [facility] Influenza Virus Vaccine Quad .5 mL IM 6+ MO (FLUZONE/FLULAVAL/F LUARIX) Unknown Completed [facility] TDAP (ADACEL) VACCINE Unknown Completed [facility] Influenza Virus Vaccine Quad .5 mL IM 6+ MO (FLUZONE/FLULAVAL/F LUARIX) Unknown Completed [facility] TDAP (ADACEL) VACCINE Unknown Completed [facility] Influenza Virus Vaccine Quad .5 mL IM 6+ MO (FLUZONE/FLULAVAL/F LUARIX) Unknown Completed [facility] TDAP (ADACEL) VACCINE Unknown Completed [facility] Influenza Virus Vaccine Quad .5 mL IM 6+ MO (FLUZONE/FLULAVAL/F LUARIX) Unknown Completed [facility] TDAP (ADACEL) VACCINE Unknown Completed [facility] Influenza Virus Vaccine Quad .5 mL IM 6+ MO (FLUZONE/FLULAVAL/F LUARIX) Unknown Completed [facility] TDAP (ADACEL) VACCINE Unknown Completed [facility] Influenza Virus Vaccine Quad .5 mL IM 6+ MO (FLUZONE/FLULAVAL/F LUARIX) Unknown Completed [facility] TDAP (ADACEL) VACCINE Unknown Completed [facility] Influenza Virus Vaccine Quad .5 mL IM 6+ MO (FLUZONE/FLULAVAL/F LUARIX) Unknown Completed [facility] TDAP (ADACEL) VACCINE Unknown Completed [facility] Influenza Virus Vaccine Quad .5 mL IM 6+ MO (FLUZONE/FLULAVAL/F LUARIX) Unknown Completed [facility] TDAP (ADACEL) VACCINE Unknown Completed [facility] Influenza Virus Vaccine Quad .5 mL IM 6+ MO (FLUZONE/FLULAVAL/F LUARIX) Unknown Completed [facility] TDAP (ADACEL) VACCINE Unknown Completed [facility] Influenza Virus Vaccine Quad .5 mL IM 6+ MO (FLUZONE/FLULAVAL/F LUARIX) Unknown Completed [facility] TDAP (ADACEL) VACCINE Unknown Completed [facility] Influenza Virus Vaccine Recomb Quad IM, Preserv and ABX Free 18-64 YRS Unknown Completed [facility] Influenza Virus Vaccine Unknown Completed [facility] Influenza Virus Vaccine Quad IM, Preserv and ABX Free 6 MO-64 YRS (FLUCELVAX) Unknown Completed [facility] Influenza Virus Vaccine Quad .5 mL IM 6+ MO (FLUZONE/FLULAVAL/F LUARIX) Unknown Completed [facility] TDAP (ADACEL) VACCINE Unknown Completed [facility] Influenza Virus Vaccine Recomb Quad IM, Preserv and ABX Free 18-64 YRS Unknown Completed [facility] Influenza Virus Vaccine Unknown Completed [facility] Influenza Virus Vaccine Quad IM, Preserv and ABX Free 6 MO-64 YRS (FLUCELVAX) Unknown Completed [facility] Influenza Virus Vaccine Quad .5 mL IM 6+ MO (FLUZONE/FLULAVAL/F LUARIX) Unknown Completed [facility] TDAP (ADACEL) VACCINE Unknown Completed [facility] Influenza Virus Vaccine Recomb Quad IM, Preserv and ABX Free 18-64 YRS Unknown Completed [facility] Influenza Virus Vaccine Unknown Completed [facility] Influenza Virus Vaccine Quad IM, Preserv and ABX Free 6 MO-64 YRS (FLUCELVAX) Unknown Completed [facility] Vital Signs Vital Name Observation Time Observation Value Comments S ourlarry Systolic blood pressure 2024-05-19 20:32:57 137 mm[Hg] [facility] Diastolic blood pressure 2024-05-19 20:32:57 88 mm[Hg] [facility] Heart rate 2024-05-19 20:32:57 118 /min [facility] Respiratory rate 2024-05-19 20:32:57 18 /min [facility] Oxygen saturation in Arterial blood by Pulse oximetry 2024-05-19 20:32:57 100 /min [facility] Body temperature 2024-05-19 18:41:00 36.39 Irene [facility] Body height 2024-05-19 18:41:00 154.9 cm [facility] Body weight 2024-05-19 18:41:00 52.164 kg [facility] BMI 2024-05-19 18:41:00 21.73 kg/m2 [facility] Systolic blood pressure 2024-04-19 15:51:38 123 mm[Hg] [facility] Diastolic blood pressure 2024-04-19 15:51:38 90 mm[Hg] [facility] Heart rate 2024-04-19 15:51:38 87 /min [facility] Body temperature 2024-04-19 15:51:38 36.78 Irene [facility] Respiratory rate 2024-04-19 15:51:38 14 /min [facility] Oxygen saturation in Arterial blood by Pulse oximetry 2024-04-19 15:51:38 100 /min [facility] Body height 2024-04-19 13:54:00 154.9 cm [facility] Body weight 2024-04-19 13:54:00 54.432 kg [facility] BMI 2024-04-19 13:54:00 22.67 kg/m2 [facility] Systolic blood pressure 2024-04-12 20:00:00 119 mm[Hg] [facility] Diastolic blood pressure 2024-04-12 20:00:00 80 mm[Hg] [facility] Heart rate 2024-04-12 20:00:00 88 /min [facility] Respiratory rate 2024-04-12 20:00:00 18 /min [facility] Oxygen saturation in Arterial blood by Pulse oximetry 2024-04-12 20:00:00 99 /min [facility] Body temperature 2024-04-12 19:00:00 36.67 Irene [facility] Body height 2024-04-12 17:57:10 154.9 cm [facility] Body weight 2024-04-12 17:57:10 54.432 kg [facility] BMI 2024-04-12 17:57:10 22.67 kg/m2 [facility] Systolic blood pressure 2024-04-12 16:25:00 124 mm[Hg] [facility] Diastolic blood pressure 2024-04-12 16:25:00 95 mm[Hg] [facility] Heart rate 2024-04-12 16:25:00 106 /min [facility] Body temperature 2024-04-12 16:25:00 37.17 Irene [facility] Respiratory rate 2024-04-12 16:25:00 18 /min [facility] Oxygen saturation in Arterial blood by Pulse oximetry 2024-04-12 16:25:00 100 /min [facility] Body height 2024-04-12 15:25:00 154.9 cm [facility] Body weight 2024-04-12 15:25:00 54.432 kg [facility] BMI 2024-04-12 15:25:00 22.67 kg/m2 [facility] Systolic blood pressure 2024-03-13 13:25:00 129 mm[Hg] [facility] Diastolic blood pressure 2024-03-13 13:25:00 87 mm[Hg] [facility] Heart rate 2024-03-13 13:25:00 116 /min [facility] Body temperature 2024-03-13 13:25:00 35.61 Irene [facility] Respiratory rate 2024-03-13 13:25:00 20 /min [facility] Oxygen saturation in Arterial blood by Pulse oximetry 2024-03-13 13:25:00 94 /min [facility] Body height 2024-03-10 14:43:00 154.9 cm [facility] Body weight 2024-03-10 14:43:00 44.453 kg [facility] BMI 2024-03-10 14:43:00 18.52 kg/m2 [facility] Systolic blood pressure 2024-03-05 16:10:00 142 mm[Hg] [facility] Diastolic blood pressure 2024-03-05 16:10:00 87 mm[Hg] [facility] Heart rate 2024-03-05 16:10:00 94 /min [facility] Body temperature 2024-03-05 16:10:00 37 Irene [facility] Respiratory rate 2024-03-05 16:10:00 16 /min [facility] Oxygen saturation in Arterial blood by Pulse oximetry 2024-03-05 16:10:00 100 /min [facility] Body height 2024-03-04 11:42:00 154.9 cm [facility] Body weight 2024-03-04 11:42:00 45.36 kg [facility] BMI 2024-03-04 11:42:00 18.89 kg/m2 [facility] Systolic blood pressure 2024-02-27 17:17:00 138 mm[Hg] [facility] Diastolic blood pressure 2024-02-27 17:17:00 91 mm[Hg] [facility] Heart rate 2024-02-27 17:17:00 97 /min [facility] Body temperature 2024-02-27 17:17:00 36.67 Irene [facility] Respiratory rate 2024-02-27 17:17:00 16 /min [facility] Oxygen saturation in Arterial blood by Pulse oximetry 2024-02-27 17:17:00 99 /min [facility] Body height 2024-02-27 13:16:00 154.9 cm [facility] Body weight 2024-02-27 13:16:00 45.36 kg [facility] BMI 2024-02-27 13:16:00 18.89 kg/m2 [facility] Systolic blood pressure 2024-02-27 15:50:00 122 mm[Hg] [facility] Diastolic blood pressure 2024-02-27 15:50:00 81 mm[Hg] [facility] Heart rate 2024-02-27 15:50:00 102 /min [facility] Respiratory rate 2024-02-27 15:50:00 13 /min [facility] Oxygen saturation in Arterial blood by Pulse oximetry 2024-02-27 15:50:00 98 /min [facility] Body temperature 2024-02-27 15:20:00 36 Irene [facility] Body height 2024-02-27 13:16:00 154.9 cm [facility] Body weight 2024-02-27 13:16:00 45.36 kg [facility] BMI 2024-02-27 13:16:00 18.89 kg/m2 [facility] Systolic blood pressure 2023-05-19 17:24:00 129 mm[Hg] [facility] Diastolic blood pressure 2023-05-19 17:24:00 83 mm[Hg] [facility] Heart rate 2023-05-19 17:24:00 77 /min [facility] Respiratory rate 2023-05-19 17:24:00 15 /min [facility] Oxygen saturation in Arterial blood by Pulse oximetry 2023-05-19 17:24:00 100 /min [facility] Body temperature 2023-05-19 14:50:00 37.28 Irene [facility] Body height 2023-05-19 14:50:00 154.9 cm [facility] Body weight 2023-05-19 14:50:00 58.968 kg [facility] BMI 2023-05-19 14:50:00 24.56 kg/m2 [facility] Systolic blood pressure 2023-01-15 16:56:00 132 mm[Hg] [facility] Diastolic blood pressure 2023-01-15 16:56:00 91 mm[Hg] [facility] Heart rate 2023-01-15 16:56:00 67 /min [facility] Body temperature 2023-01-15 16:56:00 36.78 Irene [facility] Respiratory rate 2023-01-15 16:56:00 20 /min [facility] Oxygen saturation in Arterial blood by Pulse oximetry 2023-01-15 16:56:00 100 /min [facility] Body height 2023-01-12 09:05:00 154.9 cm [facility] Body weight 2023-01-12 09:05:00 58.968 kg [facility] BMI 2023-01-12 09:05:00 24.56 kg/m2 [facility] Systolic blood pressure 2022-11-21 21:40:00 122 mm[Hg] [facility] Diastolic blood pressure 2022-11-21 21:40:00 90 mm[Hg] [facility] Heart rate 2022-11-21 21:40:00 92 /min [facility] Respiratory rate 2022-11-21 21:40:00 16 /min [facility] Oxygen saturation in Arterial blood by Pulse oximetry 2022-11-21 21:40:00 99 /min [facility] Body temperature 2022-11-21 18:07:00 37.28 Irene [facility] Body weight 2022-11-21 18:07:00 68.04 kg [facility] BMI 2022-11-21 18:07:00 28.34 kg/m2 [facility] Systolic blood pressure 2022-09-05 17:22:00 139 mm[Hg] [facility] Diastolic blood pressure 2022-09-05 17:22:00 91 mm[Hg] [facility] Heart rate 2022-09-05 17:22:00 120 /min [facility] Respiratory rate 2022-09-05 17:22:00 18 /min [facility] Oxygen saturation in Arterial blood by Pulse oximetry 2022-09-05 17:22:00 99 /min [facility] Body temperature 2022-09-05 13:43:00 37.11 Irene [facility] Body weight 2022-09-05 13:43:00 68.04 kg [facility] BMI 2022-09-05 13:43:00 28.34 kg/m2 [facility] Systolic blood pressure 2022-08-01 00:49:00 138 mm[Hg] [facility] Diastolic blood pressure 2022-08-01 00:49:00 104 mm[Hg] [facility] Heart rate 2022-08-01 00:49:00 108 /min [facility] Respiratory rate 2022-08-01 00:49:00 18 /min [facility] Oxygen saturation in Arterial blood by Pulse oximetry 2022-08-01 00:49:00 99 /min [facility] Body temperature 2022-07-31 22:52:00 37.11 Irene [facility] Body height 2022-07-31 22:52:00 154.9 cm [facility] Body weight 2022-07-31 22:52:00 68.04 kg [facility] BMI 2022-07-31 22:52:00 28.34 kg/m2 [facility] Systolic blood pressure 2022-07-15 15:32:00 130 mm[Hg] [facility] Diastolic blood pressure 2022-07-15 15:32:00 90 mm[Hg] [facility] Heart rate 2022-07-15 15:31:00 81 /min [facility] Body temperature 2022-07-15 15:31:00 36.94 Irene [facility] Respiratory rate 2022-07-15 15:31:00 16 /min [facility] Body weight 2022-07-15 15:31:00 68.493 kg [facility] BMI 2022-07-15 15:31:00 28.53 kg/m2 [facility] Oxygen saturation in Arterial blood by Pulse oximetry 2022-07-15 15:31:00 99 /min [facility] Systolic blood pressure 2022-06-23 15:26:00 111 mm[Hg] [facility] Diastolic blood pressure 2022-06-23 15:26:00 75 mm[Hg] [facility] Heart rate 2022-06-23 15:26:00 108 /min [facility] Body temperature 2022-06-23 15:26:00 36.83 Irene [facility] Respiratory rate 2022-06-23 15:26:00 18 /min [facility] Body height 2022-06-23 15:26:00 154.9 cm [facility] Body weight 2022-06-23 15:26:00 71.385 kg [facility] BMI 2022-06-23 15:26:00 29.74 kg/m2 [facility] Oxygen saturation in Arterial blood by Pulse oximetry 2022-06-23 15:26:00 99 /min [facility] Systolic blood pressure 2022-05-05 22:05:00 126 mm[Hg] [facility] Diastolic blood pressure 2022-05-05 22:05:00 75 mm[Hg] [facility] Heart rate 2022-05-05 22:05:00 99 /min [facility] Respiratory rate 2022-05-05 22:05:00 16 /min [facility] Oxygen saturation in Arterial blood by Pulse oximetry 2022-05-05 22:05:00 99 /min [facility] Body temperature 2022-05-05 18:24:00 37.11 Irene [facility] Body height 2022-05-05 18:24:00 154.9 cm [facility] Body weight 2022-05-05 18:24:00 54.432 kg [facility] BMI 2022-05-05 18:24:00 22.67 kg/m2 [facility] Systolic blood pressure 2022-04-26 14:28:00 135 mm[Hg] [facility] Diastolic blood pressure 2022-04-26 14:28:00 95 mm[Hg] [facility] Heart rate 2022-04-26 14:28:00 93 /min [facility] Body temperature 2022-04-26 14:28:00 36.89 Irene [facility] Respiratory rate 2022-04-26 14:28:00 18 /min [facility] Body height 2022-04-26 14:28:00 154.9 cm [facility] Body [facility] 2022-04-26 14:28:00 54.432 kg [facility] BMI 2022-04-26 14:28:00 22.67 kg/m2 [facility] Oxygen saturation in Arterial blood by Pulse oximetry 2022-04-26 14:28:00 100 /min [facility] Systolic blood pressure 2022-04-26 00:21:00 151 mm[Hg] [facility] Diastolic blood pressure 2022-04-26 00:21:00 98 mm[Hg] [facility] Heart rate 2022-04-26 00:21:00 98 /min [facility] Body temperature 2022-04-26 00:21:00 36.72 Irene [facility] Respiratory rate 2022-04-26 00:21:00 18 /min [facility] Body height 2022-04-26 00:21:00 154.9 cm [facility] Body weight 2022-04-26 00:21:00 54.432 kg [facility] BMI 2022-04-26 00:21:00 22.67 kg/m2 [facility] Oxygen saturation in Arterial blood by Pulse oximetry 2022-04-26 00:21:00 100 /min [facility] Systolic blood pressure 2022-04-09 14:39:00 122 mm[Hg] [facility] Diastolic blood pressure 2022-04-09 14:39:00 84 mm[Hg] [facility] Heart rate 2022-04-09 14:39:00 96 /min [facility] Body height 2022-04-09 14:39:00 154.9 cm [facility] Body weight 2022-04-09 14:39:00 60.328 kg [facility] BMI 2022-04-09 14:39:00 25.13 kg/m2 [facility] Oxygen saturation in Arterial blood by Pulse oximetry 2022-04-09 14:39:00 98 /min [facility] Systolic blood pressure 2022-04-07 22:43:36 131 mm[Hg] [facility] Diastolic blood pressure 2022-04-07 22:43:36 83 mm[Hg] [facility] Heart rate 2022-04-07 22:43:36 113 /min [facility] Respiratory rate 2022-04-07 22:43:36 18 /min [facility] Oxygen saturation in Arterial blood by Pulse oximetry 2022-04-07 22:43:36 97 /min [facility] Body temperature 2022-04-07 19:41:00 37.17 Irene [facility] Body height 2022-04-07 19:41:00 154.9 cm [facility] Body weight 2022-04-07 19:41:00 60.328 kg [facility] BMI 2022-04-07 19:41:00 25.13 kg/m2 [facility] Systolic blood pressure 2022-03-24 19:00:00 125 mm[Hg] [facility] Diastolic blood pressure 2022-03-24 19:00:00 86 mm[Hg] [facility] Heart rate 2022-03-24 19:00:00 93 /min [facility] Respiratory rate 2022-03-24 19:00:00 17 /min [facility] Oxygen saturation in Arterial blood by Pulse oximetry 2022-03-24 19:00:00 97 /min [facility] Body temperature 2022-03-24 13:33:00 36.78 Irene [facility] Systolic blood pressure 2022-03-15 19:23:00 128 mm[Hg] [facility] Diastolic blood pressure 2022-03-15 19:23:00 89 mm[Hg] [facility] Heart rate 2022-03-15 19:23:00 104 /min [facility] Body weight 2022-03-15 19:23:00 60.328 kg [facility] BMI 2022-03-15 19:23:00 25.13 kg/m2 [facility] Oxygen saturation in Arterial blood by Pulse oximetry 2022-03-15 19:23:00 98 /min [facility] Systolic blood pressure 2022-03-15 15:02:00 115 mm[Hg] [facility] Diastolic blood pressure 2022-03-15 15:02:00 70 mm[Hg] [facility] Heart rate 2022-03-15 15:02:00 85 /min [facility] Respiratory rate 2022-03-15 15:02:00 20 /min [facility] Oxygen saturation in Arterial blood by Pulse oximetry 2022-03-15 15:02:00 99 /min [facility] Body temperature 2022-03-15 13:38:00 36.94 Irene [facility] Body height 2022-03-15 13:38:00 154.9 cm [facility] Body weight 2022-03-15 13:38:00 54.432 kg [facility] BMI 2022-03-15 13:38:00 22.67 kg/m2 [facility] Systolic blood pressure 2022-03-11 16:30:00 124 mm[Hg] [facility] Diastolic blood pressure 2022-03-11 16:30:00 88 mm[Hg] [facility] Heart rate 2022-03-11 16:30:00 93 /min [facility] Body temperature 2022-03-11 16:30:00 36.67 Irene [facility] Respiratory rate 2022-03-11 16:30:00 14 /min [facility] Oxygen saturation in Arterial blood by Pulse oximetry 2022-03-11 16:30:00 100 /min [facility] Body height 2022-03-11 14:19:00 154.9 cm [facility] Body weight 2022-03-11 14:19:00 58.968 kg [facility] BMI 2022-03-11 14:19:00 24.56 kg/m2 [facility] Systolic blood pressure 2022-02-27 14:14:00 140 mm[Hg] [facility] Diastolic blood pressure 2022-02-27 14:14:00 90 mm[Hg] [facility] Heart rate 2022-02-27 14:14:00 103 /min [facility] Body height 2022-02-27 14:14:00 154.9 cm [facility] Body weight 2022-02-27 14:14:00 59.194 kg [facility] BMI 2022-02-27 14:14:00 24.66 kg/m2 [facility] Oxygen saturation in Arterial blood by Pulse oximetry 2022-02-27 14:14:00 100 /min [facility] Systolic blood pressure 2022-02-27 13:19:00 131 mm[Hg] [facility] Diastolic blood pressure 2022-02-27 13:19:00 86 mm[Hg] [facility] Heart rate 2022-02-27 13:19:00 102 /min [facility] Body temperature 2022-02-27 13:19:00 36.33 Irene [facility] Body height 2022-02-27 13:19:00 154.9 cm [facility] Body weight 2022-02-27 13:19:00 58.968 kg [facility] BMI 2022-02-27 13:19:00 24.56 kg/m2 [facility] Oxygen saturation in Arterial blood by Pulse oximetry 2022-02-27 13:19:00 99 /min [facility] Systolic blood pressure 2022-02-21 08:06:00 135 mm[Hg] [facility] Diastolic blood pressure 2022-02-21 08:06:00 97 mm[Hg] [facility] Heart rate 2022-02-21 08:06:00 98 /min [facility] Respiratory rate 2022-02-21 08:06:00 16 /min [facility] Oxygen saturation in Arterial blood by Pulse oximetry 2022-02-21 08:06:00 97 /min [facility] Body temperature 2022-02-21 06:16:00 36.94 Irene [facility] Body height 2022-02-21 06:16:00 154.9 cm [facility] Body weight 2022-02-21 06:16:00 60.963 kg [facility] BMI 2022-02-21 06:16:00 25.39 kg/m2 [facility] Systolic blood pressure 2022 20:08:00 136 mm[Hg] [facility] Diastolic blood pressure 2022 20:08:00 96 mm[Hg] [facility] Heart rate 2022 20:08:00 100 /min [facility] Respiratory rate 2022 20:08:00 20 /min [facility] Oxygen saturation in Arterial blood by Pulse oximetry 2022 20:08:00 98 /min [facility] Body temperature 2022 16:56:00 37.06 Irene [facility] Body weight 2022 16:56:00 54.432 kg [facility] BMI 2022 16:56:00 22.67 kg/m2 [facility] Systolic blood pressure 2022-02-05 14:31:00 128 mm[Hg] [facility] Diastolic blood pressure 2022-02-05 14:31:00 84 mm[Hg] [facility] Heart rate 2022-02-05 14:31:00 86 /min [facility] Body temperature 2022-02-05 14:31:00 37.89 Irene [facility] Respiratory rate 2022-02-05 14:31:00 18 /min [facility] Body height 2022-02-05 14:31:00 154.9 cm [facility] Body weight 2022-02-05 14:31:00 54.432 kg [facility] BMI 2022-02-05 14:31:00 22.67 kg/m2 [facility] Oxygen saturation in Arterial blood by Pulse oximetry 2022-02-05 14:31:00 98 /min [facility] Systolic blood pressure 2022-01-18 14:50:00 144 mm[Hg] [facility] Diastolic blood pressure 2022-01-18 14:50:00 92 mm[Hg] [facility] Heart rate 2022-01-18 14:50:00 94 /min [facility] Respiratory rate 2022-01-18 14:50:00 20 /min [facility] Oxygen saturation in Arterial blood by Pulse oximetry 2022-01-18 14:50:00 99 /min [facility] Body weight 2022-01-18 10:18:00 54.432 kg [facility] BMI 2022-01-18 10:18:00 22.67 kg/m2 [facility] Body temperature 2022-01-18 10:15:00 36.72 Irene [facility] Systolic blood pressure 2022-01-15 15:48:26 125 mm[Hg] [facility] Diastolic blood pressure 2022-01-15 15:48:26 85 mm[Hg] [facility] Heart rate 2022-01-15 15:48:26 95 /min [facility] Respiratory rate 2022-01-15 15:48:26 18 /min [facility] Oxygen saturation in Arterial blood by Pulse oximetry 2022-01-15 15:48:26 98 /min [facility] Body temperature 2022-01-15 13:32:00 37.11 [facility] Body height 2022-01-15 13:32:00 154.9 cm [facility] Body weight 2022-01-15 13:32:00 54.432 kg [facility] BMI 2022-01-15 13:32:00 22.67 kg/m2 [facility] Systolic blood pressure 2022-01-09 00:37:11 127 mm[Hg] [facility] Diastolic blood pressure 2022-01-09 00:37:11 90 mm[Hg] [facility] Heart rate 2022-01-09 00:37:11 94 /min [facility] Body temperature 2022-01-09 00:37:11 37.11 [facility] Respiratory rate 2022-01-09 00:37:11 16 /min [facility] Oxygen saturation in Arterial blood by Pulse oximetry 2022-01-09 00:37:11 97 /min [facility] Body height 2022-01-08 23:03:00 154.9 cm [facility] Body weight 2022-01-08 23:03:00 58.06 kg [facility] BMI 2022-01-08 23:03:00 24.19 kg/m2 [facility] Systolic blood pressure 2021-12-12 18:00:00 126 mm[Hg] [facility] Diastolic blood pressure 2021-12-12 18:00:00 87 mm[Hg] [facility] Heart rate 2021-12-12 18:00:00 86 /min [facility] Body temperature 2021-12-12 18:00:00 36.89 Irene [facility] Respiratory rate 2021-12-12 18:00:00 18 /min [facility] Body height 2021-12-12 18:00:00 154.9 cm [facility] Body weight 2021-12-12 18:00:00 57.153 kg [facility] BMI 2021-12-12 18:00:00 23.81 kg/m2 [facility] Systolic blood pressure 2023-01-14 16:32:00 138 mm[Hg] [facility] Diastolic blood pressure 2023-01-14 16:32:00 84 mm[Hg] [facility] Heart rate 2023-01-14 16:32:00 67 /min [facility] Body temperature 2023-01-14 16:32:00 36.5 Irene [facility] Respiratory rate 2023-01-14 16:32:00 16 /min [facility] Oxygen saturation in Arterial blood by Pulse oximetry 2023-01-14 16:32:00 99 /min [facility] Body height 2023-01-12 09:05:00 154.9 cm [facility] Body weight 2023-01-12 09:05:00 58.968 kg [facility] BMI 2023-01-12 09:05:00 24.56 kg/m2 [facility] Procedures Procedure Date / Time Performed Performing Clinician Source POCT TEST 2024-05-19 20:10:00 Anamaria Gonzales [facility] LIPASE 2024-05-19 19:53:00 Anamaria Gonzales [facility] COMP. METABOLIC PANEL ([id number]) 2024-05-19 19:53:00 Anamaria Gonzales [facility] CBC WITH DIFF 2024-05-19 19:53:00 Anamaria Gonzales [facility] URINALYSIS 2024-05-19 19:53:00 Anamaria Gonzales [facility] CT ABDOMEN PELVIS WO CONTRAST 2024-04-19 14:51:33 Rosendo Levy [facility] POCT TEST 2024-04-19 14:21:00 Rosendo Levy [facility] LIPASE 2024-04-19 14:18:00 Rosendo Levy [facility] COMP. METABOLIC PANEL ([id number]) 2024-04-19 14:18:00 Rosendo Levy [facility] CBC WITH DIFF 2024-04-19 14:18:00 Rosendo Levy [facility] URINALYSIS 2024-04-19 14:18:00 Rosendo Levy [facility] XR ANKLE <3 VW LEFT 2024-04-12 18:36:00 Niranjan [facility] XR FOOT <3 VW LEFT 2024-04-12 18:36:00 Niranjan Neeta [facility] XR TIBIA FIBULA 2 VW LEFT 2024-04-12 18:36:00 Neeta Ureña [facility] CT TRAUMA HEAD WO CONTRAST 2024-04-12 18:27:49 Niranjan Neeta [facility] CT TRAUMA CERVICAL SPINE WO CONTRAST 2024-04-12 18:27:49 Neeta Ureña [facility] CT TRAUMA THORACIC SPINE WO CONTRAST 2024-04-12 18:27:49 Niranjan Neeta [facility] CT TRAUMA LUMBAR SPINE WO CONTRAST 04-12 18:27:49 Niranjan Neeta [facility] XR CHEST 1 VW 2024-04-12 15:50:27 Maggie Hamilton [facility] COMP. METABOLIC PANEL ([id number]) 2024-04-12 15:43:00 Maggie Hamilton [facility] CBC WITH DIFF 2024-04-12 15:43:00 Maggie Hamilton [facility] HB ABO GROUPING 2024-04-12 15:43:00 Maggie Hamilton [facility] ER FAST ULTRASOUND 2024-04-12 15:36:51 Maggie Hamilton [facility] MAGNESIUM 2024-03-13 10:20:00 Ellis Burgess [facility] BASIC METABOLIC PANEL (NA, K , CL, CO2, GLUCOSE, BUN, CREATININE, CA) 2024-03-13 10:20:00 Ellis Burgess [facility] CBC WITH DIFF 2024-03-13 10:20:00 Ellis Burgess Rodger [facility] FECAL PATHOGENS BY PCR 2024-03-12 17:51:00 Mars [facility] CLOSTRIDIUM DIFFICILE TOXIN 2024-03-12 17:50:00 Mars [facility] LAB ONLY C. DIFFICILE TOXIN B GENE (TCDB) BY PCR 2024-03-12 17:50:00 Mars [facility] SUPERIOR MESENTERIC ARTERY D UPLEX - BY VASCULAR LAB 2024-03-12 14:06:02 Mars [facility] MAGNESIUM 2024-03-12 [facility]14[facility] (NA, K , CL, CO2, GLUCOSE, BUN, CREATININE, CA) 2024-03-12 [facility]:14[facility] 2024-03-12 11:14[facility] 2024-03-11 10:47:00 Kitty Meryl [facility] BASIC METABOLIC PANEL (NA, K , CL, CO2, GLUCOSE, BUN, CREATININE, CA) 2024-03-11 10:47:00 Meryl Tang [facility] CBC WITH DIFF 2024-03-11 10:47:00 Meryl Tang [facility] CT ABDOMEN PELVIS WO CONTRAST 2024-03-10 19:46:10 Venkat [facility] LIPASE 2024-03-10 15:42:00 Venkat [facility] TEST, SERUM 2024-03-10 15:42:00 Alfredo Parra [facility] COMP. METABOLIC PANEL ([id number]) 2024-03-10 15:42:00 [facility] [place] URINE DRUG (IMMUNOASSAY) - COMPREHENSIVE DRUG SCREEN 2024-03-10 15:42:00 [facility] 2024-03-10 15:42:00 Venkat [facility] URINALYSIS 2024-03-10 15:42:00 Venkat [facility] EXTRA TUBE DK. GREEN 2024-03-10 15:42:[address] [facility] CT ABDOMEN PELVIS WO CONTRAST 2024-03-04 13:43:16 Fabio Avila [facility] POCT TEST 2024-03-04 13:14:00 Fabio Avila [facility] LIPASE 2024-03-04 13:13:00 Fabio Avila [facility] COMP. METABOLIC PANEL (67874) 2024-03-04 13:13:00 Fabio Avila [facility] CBC WITH DIFF 2024-03-04 13:13:00 [facility] 2024-03-04 13:13:00 Fabio Avila [facility] FLEXIBLE SIGMOIDOSCOPY (ENDO) 2024-02-27 15:42:37 Hany Bo [facility] FLEXIBLE SIGMOIDOSCOPY (ENDO) 2024-02-27 15:42:37 Hany Bo [facility] EGD (ENDO) 2024-02-27 15:39:44 Hany Bo [facility] EGD (ENDO) 2024-02-27 15:39:44 Hany Bo [facility] ESOPHAGOGASTRODUODENOSCOPY 2024-02-27 14:11:00 Mensah, [facility] FLEXIBLE SIGMOIDOSCOPY 2024-02-27 14:11:00 Jas Mensah [facility] MAGNESIUM 2024-02-27 09:37:00 Jose Carlos Urbina [facility] HEPATIC FUNCTION PANEL (8007 6) (ALB,T.PRO,BILI T,BU/BC,ALT,AST,ALK PHOS) 2024-02-27 09:37:00 Jose Carlos Urbina [facility] BASIC METABOLIC PANEL (NA, K , CL, CO2, GLUCOSE, BUN, CREATININE, CA) 2024-02-27 09:37:00 Jose Carlos Urbina [facility] CBC WITH DIFF 2024-02-27 09:37:00 Jose Carlos Urbina [facility] MAGNESIUM 2024-02-27 09:37:00 Jose Carlos Urbina [facility] HEPATIC FUNCTION PANEL (8007 6) (ALB,T.PRO,BILI T,BU/BC,ALT,AST,ALK PHOS) 2024-02-27 09:37:00 Jose Carlos Urbina [facility] BASIC METABOLIC PANEL (NA, K , CL, CO2, GLUCOSE, BUN, CREATININE, CA) 2024-02-27 09:37:00 Jose Carlos Urbina [facility] CBC WITH DIFF 2024-02-27 09:37:00 Jose Carlos Urbina Artur [facility] CALPROTECTIN, FECAL 2024-02-26 22:49:00 Jose Carlos Urbina [facility] CALPROTECTIN, FECAL 2024-02-26 22:49:00 Jose Carlos Urbina [facility] XR KUB 2024-02-26 20:00:00 Jose Carlos Urbina [facility] XR KUB 2024-02-26 20:00:00 Jose Carlos Urbina [facility] MAGNESIUM 2024-02-26 16:17:00 Naty Mensah [facility] HEPATIC FUNCTION PANEL (8007 6) (ALB,T.PRO,BILI T,BU/BC,ALT,AST,ALK PHOS) 2024-02-26 16:17:00 Naty Mensah [facility] BASIC METABOLIC PANEL (NA, K , CL, CO2, GLUCOSE, BUN, CREATININE, CA) 2024-02-26 16:17:00 Chitra [facility] PROTHROMBIN TIME / INR 2024-02-26 16:17:00 Chitra [facility] MAGNESIUM 2024-02-26 16:17:00 Chitra [facility] HEPATIC FUNCTION PANEL (8007 6) (ALB,T.PRO,BILI T,BU/BC,ALT,AST,ALK PHOS) 2024-02-26 16:17:00 Chitra [facility] BASIC METABOLIC PANEL (NA, K , CL, CO2, GLUCOSE, BUN, CREATININE, CA) 2024-02-26 16:17:00 Chitra [facility] PROTHROMBIN TIME / INR 2024-02-26 16:17:00 Chitra [facility] MR ABDOMEN W WO CONTRAST MRCP 2024-02-25 17:15:21 Chirta [facility] MR ABDOMEN W WO CONTRAST MRCP 2024-02-25 17:15:21 Chitra [facility] CREATINE KINASE 2024-02-25 10:52:00 Chitra [facility] HEPATIC FUNCTION PANEL (8007 6) (ALB,T.PRO,BILI T,BU/BC,ALT,AST,ALK PHOS) 2024-02-25 10:52:00 Jose Carlos Urbina [facility] BASIC METABOLIC PANEL (NA, K , CL, CO2, GLUCOSE, BUN, CREATININE, CA) 2024-02-25 10:52:00 Jose Carlos Urbina [facility] CREATINE KINASE 2024-02-25 10:52:00 Chitra [facility] HEPATIC FUNCTION PANEL (8007 6) (ALB,T.PRO,BILI T,BU/BC,ALT,AST,ALK PHOS) 2024-02-25 10:52:00 Jose Carlos Urbina [facility] BASIC METABOLIC PANEL (NA, K , CL, CO2, GLUCOSE, BUN, CREATININE, CA) 2024-02-25 10:52:00 Jose Carlos Urbina [facility] MAGNESIUM 2024-02-24 09:54:00 Naty Mensah [facility] HEPATIC FUNCTION PANEL (8007 6) (ALB,T.PRO,BILI T,BU/BC,ALT,AST,ALK PHOS) 2024-02-24 09:54:00 Jose Carlos Urbina [facility] BASIC METABOLIC PANEL (NA, K , CL, CO2, GLUCOSE, BUN, CREATININE, CA) 2024-02-24 09:54:00 Jose Carlos Urbina [facility] CBC WITH DIFF 2024-02-24 09:54:00 Naty Mensah [facility] MAGNESIUM 2024-02-24 09:54:[facility] (8007 6) (ALB,T.PRO,BILI T,BU/BC,ALT,AST,ALK PHOS) 2024-02-24 09:54:00 Jose Carlos Urbina [facility] BASIC METABOLIC PANEL (NA, K , CL, CO2, GLUCOSE, BUN, CREATININE, CA) 2024-02-24 09:54:00 Jose Carlos Urbina [facility] CBC WITH DIFF 2024-02-24 09:54:00 Naty Mensah [facility] POCT GLUCOSE (AUTOMATED) 2024-02-24 01:34:00 Hany Bo [facility] POCT GLUCOSE (AUTOMATED) 2024-02-24 01:34:00 Hany Bo [facility] HEPATIC FUNCTION PANEL (8007 6) (ALB,T.PRO,BILI T,BU/BC,ALT,AST,ALK PHOS) 2024-02-23 17:51:00 [facility] 2024-02-23 17:51[facility]00 [facility] (IGG AND IGM) 2024-02-23 17:51:00 [facility], IGA BY IFA 2024-02-23 17:51:00 Chitra [facility] VITAMIN D, 25-OH 2024-02-23 17:51:00 [facility]EL (8007 6) (ALB,T.PRO,BILI T,BU/BC,ALT,AST,ALK PHOS) 2024-02-23 17:51:00 [facility] 2024-02-23 17:51:00 Chitra [facility] HAV ANTIBODY (IGG AND IGM) 2024-02-23 17:51:00 Chitra [facility] ENDOMYSIAL AB, IGA BY IFA 2024-02-23 17:51:00 Chitra [facility] VITAMIN D, 25-OH 2024-02-23 17:51:00 Chitra [facility] INFLUENZA A/B RSV COVID NAAT 2024-02-22 20:12:00 Chitra [facility] LAB ONLY COVID INTERPRETATION 2024-02-22 20:12:00 Chitra [facility] INFLUENZA A/B RSV COVID NAAT 2024-02-22 20:12:00 Chitra [facility] LAB ONLY COVID INTERPRETATION 2024-02-22 20:12:00 Chitra [facility] XR CHEST 2 VW 2024-02-22 17:16:00 Inyo, [facility] XR CHEST 2 VW 2024-02-22 17:16:00 Inyo, [facility] US ABDOMEN LIMITED 2024-02-22 16:59:52 Inyo, [facility] US ABDOMEN LIMITED 2024-02-22 16:59:52 Inyo, [facility] LIPASE 2024-02-22 15:19:00 [facility]24-02-22 15:19:00 Stephanie Lou [facility] C-REACTIVE PROTEIN 2024-02-22 15:19:00 Chitra [facility] TROPONIN I 2024-02-22 15:19:00 [facility] (8007 6) (ALB,T.PRO,BILI T,BU/BC,ALT,AST,ALK PHOS) 2024-02-22 15:19:00 Chitra [facility] COMP. METABOLIC PANEL (78474) 2024-02-22 15:19:00 Stephanie Lou [facility] URINE DRUG (IMMUNOASSAY) - COMPREHENSIVE DRUG SCREEN 2024-02-22 15:19:00 Chitra [facility] SEDIMENTATION RATE 2024-02-22 15:19:00 Chitra [facility] CBC WITH DIFF 2024-02-22 15:19:00 Stephanie Lou [facility] URINALYSIS 2024-02-22 15:19:00 Stephanie Lou [facility] HEPATITIS B SURFACE ANTIBODY 2024-02-22 15:19:00 Chitra [facility] HEPATITIS B SURFACE ANTIGEN 2024-02-22 15:19:00 Chitra [facility] HCV ANTIBODY 2024-02-22 15:19:00 Chitra [facility] HBC ANTIBODY (IGM & IGG) 2024-02-22 15:19:00 Chitra [facility] HIV 1/2 AG-AB WITH REFLEX 2024-02-22 15:19:00 Chitra [facility] DEAMIDATED GLIADIN IGG 2024-02-22 15:19:00 Chitra [facility] LIPASE 2024-02-22 15:19:00 Stephanie Lou [facility] TEST, SERUM 2024-02-22 15:19:00 Stephanie Lou [facility] C-REACTIVE PROTEIN 2024-02-22 15:19:00 Chitra [facility] TROPONIN I 2024-02-22 15:19:00 Stephanie Lou [facility] HEPATIC FUNCTION PANEL (8007 6) (ALB,T.PRO,BILI T,BU/BC,ALT,AST,ALK PHOS) 2024-02-22 15:19:00 [facility] METABOLIC PANEL (91562) 2024-02-22 15:19:00 Colin Jones [facility] URINE DRUG (IMMUNOASSAY) - COMPREHENSIVE DRUG SCREEN 2024-02-22 15:19:00 Chitra [facility] SEDIMENTATION RATE 2024-02-22 15:19:00 [facility] 2024-02-22 15:19:00 Stephanie Lou [facility] URINALYSIS 2024-02-22 15:19:00 Stephanie Lou [facility] HEPATITIS B SURFACE ANTIBODY 2024-02-22 15:19:00 Chitra [facility] HEPATITIS B SURFACE ANTIGEN 2024-02-22 15:19:00 Chitra [facility] HCV ANTIBODY 2024-02-22 15:19:00 Chitra [facility] HBC ANTIBODY (IGM & IGG) 2024-02-22 15:19:00 Chitra [facility] HIV 1/2 AG-AB WITH REFLEX 2024-02-22 15:19:00 Chitra [facility] DEAMIDATED GLIADIN IGG 2024-02-22 15:19:00 Chitra [facility] COMP. METABOLIC PANEL (87139) 2023-05-19 17:22:00 Ver[address] [facility] CT ABDOMEN PELVIS W CONTRAST 2023-05-19 15:59:54 Verito [facility] LIPASE 2023-05-19 15:43:00 Verito [facility] CBC WITH DIFF 2023-05-19 15:43:00 Verito [facility] URINALYSIS 2023-05-19 15:32:00 Verito [facility] POCT TEST 2023-05-19 15:31:00 Verito [facility] CONSENT/REFUSAL FOR DIAGNOSI S AND TREATMENT 2023-05-19 14:37:15 Doctor Unassigned, [place] [facility] PHOSPHORUS 2023-01-15 08:15:00 Benita Rockwell [facility] MAGNESIUM 2023-01-15 08:15:00 [facility]EL (NA, K , CL, CO2, GLUCOSE, BUN, CREATININE, CA) 2023-01-15 08:15:00 [facility] WITH DIFF 2023-01-15 08:15:00 Mozi [facility] PROTHROMBIN TIME / INR 2023-01-15 08:15:00 [facility] 2023-01-14 10:14:00 [facility] 2023-01-14 10:14:00 Moiz [facility] BASIC METABOLIC PANEL (NA, K , CL, CO2, GLUCOSE, BUN, CREATININE, CA) 2023-01-14 10:14:00 [facility]FF 2023-01-14 10:14:00 [facility] 2023-01-14 10:14:00 Moiz Benita [facility] MAGNESIUM 2023-01-14 10:14:00 [facility] BASIC METABOLIC PANEL (NA, K , CL, CO2, GLUCOSE, BUN, CREATININE, CA) 2023-01-14 10:14:00 Moiz Benita [facility] CBC WITH DIFF 2023-01-14 10:14:00 [facility] WITH DIFF 2023-01-13 10:45:[address] [facility] BASIC METABOLIC PANEL (NA, K , CL, CO2, GLUCOSE, BUN, CREATININE, CA) 2023-01-13 10:45:[address] [facility] MAGNESIUM 2023-01-13 10:45:[address] [facility] PHOSPHORUS 2023-01-13 10:45:00 Vaishnavi, [facility] HEPATIC FUNCTION PANEL (8007 6) (ALB,T.PRO,BILI T,BU/BC,ALT,AST,ALK PHOS) 2023-01-13 10:45:00 Vaishnavi, [facility] PHOSPHORUS 2023-01-13 10:45:00 Vaishnavi, [facility] MAGNESIUM 2023-01-13 10:45:00 Vaishnavi, [facility] HEPATIC FUNCTION PANEL (8007 6) (ALB,T.PRO,BILI T,BU/BC,ALT,AST,ALK PHOS) 2023-01-13 10:45:00 Vaishnavi, [facility] BASIC METABOLIC PANEL (NA, K , CL, CO2, GLUCOSE, BUN, CREATININE, CA) 2023-01-13 10:45:00 Vaishnavi, [facility] CBC WITH DIFF 2023-01-13 10:45:00 Vaishnavi, [facility] GLUCOSE BODY FLUID 2023-01-12 20:44:00 Vaishnavi, [facility] BODY FLUID MANUAL DIFF 2023-01-12 20:44:00 Vaishnavi, [facility] T.PROTEIN BODY FLUID 2023-01-12 20:44:00 Vaishnavi, [facility] ASPIRATE OR ABSCESS CULTURE(AEROBIC/ANAEROBIC) 2023-01-12 20:44:00 Vaishnavi, [facility] LDH TOTAL BODY FLUID 2023-01-12 20:44:00 Vaishnavi, [facility] GLUCOSE BODY FLUID 2023-01-12 20:44:00 Vaishnavi, [facility] T.PROTEIN BODY FLUID 2023-01-12 20:44:00 Vaishnavi, [facility] BODY FLUID DIRECT COUNT 2023-01-12 20:44:00 Vaishnavi, [facility] ASPIRATE OR ABSCESS CULTURE(AEROBIC/ANAEROBIC) 2023-01-12 20:44:00 Vaishnavi, [facility] LDH TOTAL BODY FLUID 2023-01-12 20:44:00 Vaishnavi, [facility] PROTHROMBIN TIME / INR 2023-01-12 08:13:00 Vaishnavi, [facility] PROTHROMBIN TIME / INR 2023-01-12 08:13:00 Vaishnavi, [facility] COMP. METABOLIC PANEL (12463) 2023-01-12 03:49:00 Ricky [facility] COMP. METABOLIC PANEL (86346) 2023-01-12 03:49:00 Ciera García [facility] CT ABDOMEN PELVIS W CONTRAST 2023-01-12 03:32:06 Ricky [facility] CT ABDOMEN PELVIS W CONTRAST 2023-01-12 03:32:06 Ricky [facility] POCT TEST 2023-01-12 03:02:00 Ricky [facility] POCT TEST 2023-01-12 03:02:00 Ricky [facility] URINALYSIS 2023-01-12 02:56:00 Ricky [facility] LIPASE 2023-01-12 02:56:00 Ricky [facility] TOTAL BETA HCG ASSAY 2023-01-12 02:56:00 Ricky [facility] CBC WITH DIFF 2023-01-12 02:56:00 Ricky [facility] EXTRA TUBE ORANGE 2023-01-12 02:56:00 [facility] 2023-01-12 02:56:00 [facility] 2023-01-12 02:56:00 Ricky [facility] TOTAL BETA HCG ASSAY 2023-01-12 02:56:00 Ricky [facility] CBC WITH DIFF 2023-01-12 02:56:00 Ricky [facility] URINALYSIS 2023-01-12 02:56:00 Ricky [facility] EXTRA TUBE LAV 2023-01-12 02:56:00 [facility] ORANGE 2023-01-12 02:56:00 Miguel Ángel Siddiqui [facility] CONSENT/REFUSAL FOR DIAGNOSI S AND TREATMENT 2023-01-12 01:46:10 Doctor Unassigned, [place] [facility] CONSENT/REFUSAL FOR DIAGNOSI S AND TREATMENT 2023-01-12 01:46:10 Doctor Unassigned, [place] [facility] ASSIGNMENT OF BENEFITS 2022-11-21 19:49:02 Doctor Unassigned, [place] [facility] ASSIGNMENT OF BENEFITS 2022-11-21 19:49:02 Doctor Unassigned, [place] [facility] CONSENT/REFUSAL FOR DIAGNOSI S AND TREATMENT 2022-11-21 18:03:25 Doctor Unassigned, [place] [facility] CONSENT/REFUSAL FOR DIAGNOSI S AND TREATMENT 2022-11-21 18:03:25 Doctor Unassigned, [place] [facility] EMERGENCY SERVICES AGREEMENT S AND AUTHORIZATIONS 2022-11-21 05:01:00 Doctor Unassigned, [place] [facility] CONSENT/REFUSAL FOR DIAGNOSI S AND TREATMENT 2022-09-05 13:42:02 Doctor Unassigned, [place] [facility] LIPASE 2022-07-31 23:13:00 Blane [facility] TEST, SERUM 2022-07-31 23:13:00 Blane [facility] COMP. METABOLIC PANEL (47645) 2022-07-31 23:13:00 Blane [facility] CBC WITH DIFF 2022-07-31 23:13:00 Blane [facility] CONSENT/REFUSAL FOR DIAGNOSI S AND TREATMENT 2022-07-31 22:49:17 Doctor Unassigned, [place] [facility] XR ANKLE 3+ VW RIGHT 2022-07-15 16:00:00 Beba Kaur [facility] XR FOOT 3+ VW RIGHT 2022-07-15 16:00:00 Beba Kaur [facility] XR FOOT 3+ VW RIGHT 2022-07-15 16:00:00 Beba Kaur [facility] PATIENT FINANCIAL POLICY 2022-07-15 15:25:53 Doctor Unassigned, [place] [facility] POCT MOLECULAR STREP 2022-06-23 16:06:00 Unknown, Attending [facility] ASSIGNMENT OF BENEFITS 2022-06-23 15:18:28 Doctor Unassigned, [place] [facility] COMP. METABOLIC PANEL (08751) 2022-05-05 19:14:00 Errol [facility] CBC WITH DIFF 2022-05-05 19:14:00 Errol [facility] POCT TEST 2022-05-05 19:00:00 Errol [facility] URINALYSIS 2022-05-05 18:58:00 Errol [facility] CT ABDOMEN PELVIS WO CONTRAST 2022-04-26 15:11:00 Singer [facility] COMP. METABOLIC PANEL (05597) 2022-04-26 14:49:00 Singer [facility] CBC WITH DIFF 2022-04-26 14:49:00 Singer [facility] URINALYSIS 2022-04-26 14:49:00 Singer [facility] POCT TEST 2022-04-26 14:45:00 Singer [facility] CONSENT/REFUSAL FOR DIAGNOSI S AND TREATMENT 2022-04-26 14:22:29 Doctor Unassigned, [place] [facility] POCT TEST 2022-04-26 01:22:00 Singer [facility] ASSIGNMENT OF BENEFITS 2022-04-26 00:54:02 Doctor Unassigned, [place] [facility] URINALYSIS 2022-04-26 00:45:00 Singer [facility] CONSENT/REFUSAL FOR DIAGNOSI S AND TREATMENT 2022-04-26 00:16:47 Doctor Unassigned, [place] [facility] BASIC METABOLIC PANEL (NA, K , CL, CO2, GLUCOSE, BUN, CREATININE, CA) 2022-04-07 22:35:00 Olamide Garvin [facility] CBC WITH DIFF 2022-04-07 22:35:00 Olamide Garvin [facility] URINALYSIS 2022-04-07 21:36:00 Olamide Garvin [facility] URINE DRUG (IMMUNOASSAY) - COMPREHENSIVE DRUG SCREEN W/O REFLEX 2022-04-07 21:36:00 Olamide Garvin [facility] CONSENT/REFUSAL FOR DIAGNOSI S AND TREATMENT 2022-04-07 19:29:15 Doctor Unassigned, [place] [facility] POCT TEST 2022-03-24 14:07:00 Kellie Duncan [facility] CONSENT/REFUSAL FOR DIAGNOSI S AND TREATMENT 2022-03-24 13:27:20 Doctor Unassigned, [place] [facility] CT ABDOMEN PELVIS WO CONTRAST 2022-03-15 14:09:04 Lydia Gould [facility] URINALYSIS 2022-03-15 13:53:00 Lydia Gould [facility] POCT TEST 2022-03-15 13:52:00 Lydia Gould [facility] CONSENT/REFUSAL FOR DIAGNOSI S AND TREATMENT 2022-03-15 13:37:02 Doctor Unassigned, [place] [facility] POCT TEST 2022-03-11 14:59:00 Angelica Viveros [facility] FLU VACC ([id number]), 6 MO-6 4 YRS, .5ML, IM, QUAD (FLUCELVAX) 2022-02-27 13:34:55 Ca Martinez [facility] NOTICE OF PRIVACY PRACTICES 2022-02-21 06:06:30 Doctor Unassigned, [place] [facility] CONSENT/REFUSAL FOR DIAGNOSI S AND TREATMENT 2022-02-21 06:03:41 Doctor Unassigned, [place] [facility] XR ANKLE <3 VW RIGHT 2022 17:56:42 Maggie Hamilton [facility] CT ABDOMEN PELVIS W CONTRAST 2022 17:44:17 Maggie Hamilton [facility] CT TRAUMA CERVICAL SPINE WO CONTRAST 2022 17:43:49 Maggie Hamilton [facility] POCT TEST 2022 17:27:00 Maggie Hamilton [facility] COMP. METABOLIC PANEL ([id number]) 2022 17:17:00 Maggie Hamilton [facility] CBC WITH DIFF 2022 17:17:00 Maggie Hamilton [facility] CONSENT/REFUSAL FOR DIAGNOSI S AND TREATMENT 2022 16:53:13 Doctor Unassigned, [place] [facility] US GALL BLADDER 2022-01-18 12:31:09 Rosendo Levy [facility] US PELVIS COMPLETE WITH TRANSVAGINAL 2022-01-18 12:21:13 Melvin Zhao [facility] CT ABDOMEN PELVIS W CONTRAST 2022-01-18 11:20:50 Melvin Zhao [facility] POCT TEST 2022-01-18 10:57:00 Juan Kennedy [facility] COVID-19 (ID NOW RAPID TESTING) 10:57:00 Juan Kennedy [facility] URINALYSIS 2022-01-18 10:47:00 Juan Kennedy [facility] LIPASE 2022-01-18 10:29:00 Juan Kennedy [facility] TEST, SERUM 2022-01-18 10:29:00 Juan Kennedy [facility] HEPATIC FUNCTION PANEL (8007 6) (ALB,T.PRO,BILI T,BU/BC,ALT,AST,ALK PHOS) 2022-01-18 10:29:00 Juan Kennedy [facility] BASIC METABOLIC PANEL (NA, K , CL, CO2, GLUCOSE, BUN, CREATININE, CA) 2022-01-18 10:29:00 Juan Kennedy [facility] CBC WITH DIFF 2022-01-18 10:29:00 Juan Kennedy [facility] CONSENT/REFUSAL FOR DIAGNOSI S AND TREATMENT 2022-01-18 10:13:31 Doctor Unassigned, [place] [facility] CT HEAD WO CONTRAST 2022-01-15 15:22:29 Maura Samayoa [facility] TEST, SERUM 2022-01-15 14:36:00 Maura Samayoa [facility] BASIC METABOLIC PANEL (NA, K , CL, CO2, GLUCOSE, BUN, CREATININE, CA) 2022-01-15 14:36:00 Maura Samayoa [facility] CBC WITH DIFF 2022-01-15 14:36:00 Maura Samayoa [facility] CONSENT/REFUSAL FOR DIAGNOSI S AND TREATMENT 2022-01-15 13:28:12 Doctor Unassigned, [place] [facility] XR CERVICAL SPINE 4 VW 2022-01-09 00:29:16 Gabriela Humberto [facility] XR LUMBAR SPINE 4 VW 2022-01-09 00:29:16 Gabriela [facility] XR SPINE THORACIC 3 VW 2022-01-09 00:29:16 Gabriela [facility] URINALYSIS 2022-01-08 23:50:00 Gabriela [facility] CONSENT/REFUSAL FOR DIAGNOSI S AND TREATMENT 2022-01-08 22:51:08 Doctor Unassigned, [place] [facility] GALV ONLY - VAGINAL PATHOGEN S BY NUCLEIC ACID TESTING 2021-12-12 18:37:00 Prasanna Vargas [facility] URINE CULTURE 2021-12-12 18:32:00 Prasanna Vargas [facility] POCT TEST 2021-12-12 18:31:00 Prasanna Vargas [facility] POCT URINALYSIS W/O SPECIFIC GRAVITY 2021-12-12 18:31:00 Prasanna Vargas [facility] Encounters Start Date/Time End Date/Time Encounter Type Admission Type Attending [facility] Care Facility Care Department Encounter ID Source 2021-03-14 03:14:31 Emergency [facility] [id number] [facility] 2021-03-13 20:05:20 Emergency [facility] [id number] [facility] 2021-03-13 12:48:28 Emergency [facility] [id number] [facility] 2021-03-13 02:43:51 Emergency [facility] [id number] [facility] 2021-03-13 00:27:09 Emergency [facility] [id number] [facility] 2021-03-12 22:10:36 [place] [facility] [place] [id number] [facility] 2021-03-12 20:04:05 [facility] [id number] [facility] 2021-03-12 15:25:05 [facility] [id number] [facility] 2021-03-12 11:43:36 [facility] [id number] [facility] 2021-03-12 07[facility]41:37 [facility] [id number] [facility] 2021-03-12 05:43:47 [facility] [id number] [facility] 2021-03-12 03:43:41 [place] [facility] [place] [id number] [facility] 2021-03-12 01:31:27 Emergency [facility] [id number] [facility] 2021-03-12 00:56:44 Emergency X [facility] ERT [id number] [facility] 2021-03-12 00:56:31 Emergency [facility] [place] [id number] [facility] 2021-03-11 17:47:02 Emergency [facility] [id number] [facility] 2021-03-11 16:27:15 Emergency [place] [id number] [facility] 2021-03-11 12:00:58 Emergency [place] [id number] [facility] 2021-03-11 10:33:59 Emergency [place] [id number] [facility] 2021-03-11 01:36:52 Emergency [facility] [id number] [facility] 2021-03-10 23:35:34 Emergency [place] [id number] [facility] 2021-03-10 19:06:16 Emergency [facility] [id number] [facility] 2021-03-10 12:39:47 Emergency [facility] [place] [id number] [facility] [place] [facility] 2021-03-10 06:54:04 Emergency [facility] [id number] [facility] 2021-03-09 13:25:44 Outpatient P [facility] CHRIS [id number] [facility] 2021-03-09 13:08:01 Outpatient P [facility] [id number] [facility] 2021-03-09 12:37:25 Outpatient P [facility]EMB [facility] [id number] [facility] 2021-03-09 11:51:20 Outpatient P [facility] [id number] [facility] 2024-05-19 12:49:00 2024-05-19 16:37:00 Emergency X ANAMARIA GONZALES DONNELL [facility] ERT [id number] [facility] 2024-05-19 12:49:00 2024-05-19 16:37:00 Emergency Anamaria Gonzales [facility] 1.840.114 350.1.13.10 4.2.7.2.686 [id number] [facility] 2024-04-19 07:55:00 2024-04-19 09:58:00 Emergency X ROSENDO LEVY BRENT [facility] ERT [id number] [facility] 2024-04-19 07:55:00 2024-04-19 09:58:00 Emergency Rosendo Levy [facility] 1..840.114 350.1.13.10 4.2.7.2.686 [id number] [facility] 2024-03-18 00:00:00 2024-04-18 18:19:35 Patient Secure Msg Doctor Unassigned, [place] Doctor Unassigned, [place] [facility] 1..840.114 350.1.13.10 4.2.7.2.686 [id number] [facility] 2024-04-12 11:54:00 2024-04-12 14:39:00 Emergency T ARAM CLARK [facility] STR [id number] [facility] 2024-04-12 11:54:00 2024-04-12 14:39:00 Emergency Aram Clark [facility] 1.20.114 350.1.13.10 4.2.7.2.686 [id number] [facility] 2024-04-12 09:23:00 2024-04-12 10:42:00 Emergency X MAGGIE HAMILTON, MAGGIE [facility] ERT [id number] [facility] 2024-04-12 09:23:00 2024-04-12 10:42:00 Emergency Olamide Garvin Sandra J [facility] 1.20.114 350.1.13.10 4.2.7.2.686 [id number] [facility] 2024-03-10 09:43:00 2024-03-13 10:40:00 Inpatient X TAJ BARKER MICHAEL [facility] [id number] [facility] 2024-03-10 09:43:00 2024-03-13 10:40:00 Hospital Encounter Fidel, Alfredo Manuel, Jose Mao, Taj Milner [facility] 1.2.114 350.1.13.10 4.2.7.2.686 [id number] [facility] 2024-03-06 00:00:00 2024-03-06 08:40:48 Transition of Care Marlys Odell Antoinette [facility] 1.2840.114 350.1.13.10 4.2.7.2.686 [id number] [facility] 2024-03-04 06:46:00 2024-03-05 16:30:00 Outpatient X JOSE NAIK MYRNA [facility] [id number] [facility] 2024-03-04 06:46:00 2024-03-05 16:30:00 Emergency Wanda Jesus Jose Naik [facility] 1.2.840.114 350.1.13.10 4.2.7.2.686 [id number] [facility] 2024-03-03 00:00:00 2024-03-04 15:45:46 Patient Secure Jas Piedra [facility] 1.2.840.114 350.1.13.10 4.2.7.2.686 [id number] [facility] 2024-03-03 00:00:00 2024-03-03 12:14:14 Telephone Giselle Vance [facility] ([place]) 1.2.840.114 350.1.13.10 4.2.7.2.686 [id number] [facility] 2024-02-28 00:00:00 2024-02-28 09:08:41 Transition of Care Tc Renteria Michele A [facility] [address] 1.2.840.114 350.1.13.10 4.2.7.2.686 [id number] [facility] 2024-02-22 09:35:00 2024-02-27 16:59:00 Inpatient X HANY BO [facility] [id number] [facility] 2024-02-22 09:35:00 2024-02-27 16:59:00 Hospital Encounter Colin Jones Megan A [facility] ([place]) 1.2.840.114 350.1.13.10 4.2.7.2.686 [id number] [id number] [facility] 2024-02-27 09:40:00 2024-02-27 10:51:00 Surgery Jas Mensah [facility] 1.2.840.114 350.1.13.10 4.2.7.2.686 [id number] [facility] 2024-02-27 09:22:00 2024-02-27 10:26:00 Anesthesia Event Peter Reece [facility] 1.2840.114 350.1.13.10 4.2.7.2.686 [id number] [facility] 2024-02-24 00:00:00 2024-02-24 09:18:09 Telephone Naty Mensah [facility] 1.2.840.114 350.1.13.10 4.2.7.2.686 [id number] [facility] 2023-12-23 15:39:53 2023-12-23 15:39:53 Outpatient [facility] [id number] Willis Gil 2023-12-08 14:51:46 2023-12-08 14:51:46 Outpatient [facility] [id number] [place] Gil 2023-09-12 00:00:00 2023-09-12 00:00:00 Outpatient ROLDAN QUIROZ [facility] [id number] General acute hospital 2023-08-26 00:00:00 2023-08-26 00:00:00 Transition of Care Marlys Odell [place] 1.2.840.114 350.1.13.10 4.2.7.2.686 [id number] [facility] 2023-08-23 08:31:00 2023-08-24 13:25:00 Outpatient ROLDAN PARKER [facility] [place] [id number] General acute hospital 2023-08-04 14:56:23 2023-08-04 14:56:23 Outpatient [facility] [id number] Willis Gil 2023-06-27 14:47:45 2023-06-27 14:47:45 Outpatient [facility] [id number] Willsi Gil 2023-05-19 09:04:00 2023-05-19 12:20:00 Emergency X SALEEM AGUILAR [facility] ERT [id number] [facility] 2023-05-19 09:04:00 2023-05-19 12:20:00 Emergency AdeAnna Marie dohertyzohra [facility] 1.84.114 350.1.13.10 4.2.7.2.686 [id number] [facility] 2023-04-05 00:00:00 2023-04-05 00:00:00 Patient Secure MsPrasanna Lyman [facility] 1.84.114 350.1.13.10 4.2.7.2.686 [id number] [facility] 2023-02-14 12:59:23 2023-02-14 12:59:23 Outpatient [facility] [id number] Willis Gil 2023-02-06 18:19:02 2023-02-06 18:19:02 Outpatient [facility] [id number] Willis Gil 2023-01-30 00:00:00 2023-01-30 00:00:00 Outpatient BILL_R [facility] [id number] [facility] 2023-01-16 00:00:00 2023-01-16 00:00:00 Transition of Care Marlys Odell 1.84.114 350.1.13.10 4.2.7.2.686 [id number] [facility] 2023-01-11 21:06:00 2023-01-15 16:00:00 Inpatient X KUN STEELE [facility] DAVID [id number] [facility] 2023-01-11 21:06:00 2023-01-15 16:00:00 Hospital Encounter Miguel Ángel Siddiqui, Mirella Steele, Kun [facility] 1.2.840.114 350.1.13.10 4.2.7.2.686 [id number] [facility] 2023-01-12 00:00:00 2023-01-12 00:00:00 Travel 1.2.840.1 05289.1.1 3.104.2.7 .3.259677 .8 1.2.840.114 350.1.13.10 4.2.7.3.698 084.8 [id number] [facility] 2023-01-11 00:00:00 2023-01-11 00:00:00 Travel 1.2.840.1 36931.1.1 3.104.2.7 .3.522248 .8 1.2.840.114 350.1.13.10 4.2.7.3.698 084.8 [id number] [facility] 2022-12-28 00:00:00 2022-12-28 00:00:00 Outpatient ERICKSON_R [facility] [id number] [place] [facility] 2022-12-14 18:37:13 2022-12-14 18:37:13 Outpatient STEFANY [facility] [id number] Willis Gil 2022-12-13 00:00:00 2022-12-13 00:00:00 Outpatient ERICKSON_R [facility] [id number] [place] [facility] 2022-12-12 09:30:00 2022-12-12 09:30:00 Outpatient PRASANNA LOOMIS [facility] [id number] [facility] 2022-11-21 13:08:00 2022-11-21 16:45:00 Emergency X MANJU NEWELL [facility] ERT [id number] [facility] 2022-11-21 13:08:00 2022-11-21 16:45:00 Emergency Bridges, Leighton Mejiaem 1.2.840.1 29729.1.1 3.104.2.7 .3.954392 .8 [id number] [facility] 2022-11-21 00:00:00 2022-11-21 00:00:00 Travel 1.2.840.1 39013.1.1 3.104.2.7 .3.646023 .8 1.2.840.114 350.1.13.10 4.2.7.3.698 084.8 [id number] [facility] 2022-11-18 10:08:00 2022-11-18 10:08:00 Outpatient [facility] [id number] Willis Gil 2022-11-15 09:40:00 2022-11-15 09:40:00 Outpatient JEREMY LABOY CHRISTINE [facility] [id number] [facility] 2022-11-15 00:00:00 2022-11-15 00:00:00 Orders Only Palak Marrufo 1.2.840.1 12859.1.1 3.104.2.7 .3.618425 .8 [id number] [facility] 2022-11-09 15:26:18 2022-11-09 15:26:18 Outpatient [facility] [id number] Willis Gil 2022-11-06 13:00:00 2022-11-06 13:00:00 Outpatient CA ARAUZ [facility] [id number] [facility] 2022-10-29 00:00:00 2022-10-29 00:00:00 Patient Secure Jeremy Mason 1.2.840.1 54123.1.1 3.104.2.7 .3.937283 .8 [id number] [facility] 2022-10-29 00:00:00 2022-10-29 00:00:00 Patient Secure Msg Prasanna Vargas Cam 1.2.840.1 04761.1.1 3.104.2.7 .3.842164 .8 [id number] [facility] 2022-10-03 00:00:00 2022-10-03 00:00:00 Letter (Out) Roldan Lim [facility] 1.2.840.114 350.1.13.10 4.2.7.2.686 [id number] [facility] 2022-10-02 10:00:00 2022-10-02 10:00:00 Outpatient R DESIREE FINNEY [facility] [id number] [facility] 2022-10-01 09:40:00 2022-10-01 09:40:00 Outpatient R REJI DÍAZ [facility] [id number] [facility] 2022-09-25 00:00:00 2022-09-25 00:00:00 Tele[facility] 1..840.114 350.1.13.10 4.2.7.2.686 [id number] [facility] 2022-09-21 09:30:00 2022-09-21 09:30:00 Outpatient KASSANDRA MCKINLEY [facility] [id number] [facility] 2022-09-21 00:00:00 2022-09-21 00:00:00 [facility] 1..840.114 350.1.13.10 4.2.7.2.686 [id number] 092 [id number] [facility] 2022-09-21 00:00:00 2022-09-21 00:00:00 [facility] 1..840.114 350.1.13.10 4.2.7.2.686 [id number] [id number] [facility] 2022-09-21 00:00:00 2022-09-21 00:00:00 [facility] 1.2.840.114 350.1.13.10 4.2.7.2.686 [id number] [id number] [facility] 2022-09-14 09:30:00 2022-09-14 09:30:00 Outpatient [facility] [id number] [facility] 2022-09-12 00:00:00 2022-09-12 00:00:00 Telephone Cristian [facility] MED[facility] OFF[facility] 1.840.114 350.1.13.10 4.2.7.2.686 [id number] [facility] 2022-09-07 11:30:00 2022-09-07 11:30:00 [facility] [id number] [facility] 2022-09-05 08:44:00 2022-09-05 13:15:00 Emergency X KENNEDY WHITLEY [facility] ERT [id number] [facility] 2022-09-05 08:44:00 2022-09-05 13:15:00 Emergency Kennedy Whitley [facility] 1.840.114 350.1.13.10 4.2.7.2.686 [id number] [facility] 2022-09-04 00:00:00 2022-09-04 00:00:00 Telephone Cristian [facility] MEDICAL OFF[facility]ILD[facility] 1.2.840.114 350.1.13.10 4.2.7.2.686 [id number] [facility] 2022-09-04 00:00:00 2022-09-04 00:00:00 Patient Secure Msg Rad Serra [facility] NAL [facility] 1..840.114 350.1.13.10 4.2.7.2.686 [id number] [facility] 2022-08-29 09:00:00 2022-08-29 09:00:00 Outpatient R DESIREE FINNEY [facility] [id number] [facility] 2022-08-14 00:00:00 2022-08-14 00:00:00 Patient Secure Msg Doctor Unassigned, [place] [facility] 1..840.114 350.1.13.10 4.2.7.2.686 [id number] [facility] 2022-07-31 17:56:00 2022-07-31 20:30:00 [facility] [id number] [facility] 2022-07-31 17:56:00 2022-07-31 20:30:00 Emergency Manju Newell [facility] 1..840.114 350.1.13.10 4.2.7.2.686 [id number] [facility] 2022-07-15 09:46:45 2022-07-15 23:59:00 Outpatient R BEBA KAUR [facility] [id number] [facility] 2022-07-15 09:46:45 2022-07-15 23:59:00 Hospital Encounter Beba Kaur [facility] 1..840.114 350.1.13.10 4.2.7.2.686 [id number] [facility] 2022-07-15 09:46:45 2022-07-15 23:59:00 Hospital Encounter Leanne, Beba J [facility] 1.84.114 350.1.13.10 4.2.7.2.686 [id number] [facility] 2022-07-15 09:20:00 2022-07-15 10:29:17 Urgent Care Beba Kaur Unknown, Attending [facility] MEDICAL OFFICE BUILDING 1.84114 350.1.13.10 4.2.7.2.686 [id number] [facility] 2022-07-15 00:00:00 2022-07-15 00:00:00 Orders Only Doctor Unassigned, [place] [facility] 1.840.114 350.1.13.10 4.2.7.2.686 [id number] [facility] 2022-06-23 09:20:00 2022-06-23 10:27:39 Outpatient R PAUL SAMAYOA [facility] [id number] [facility] 2022-06-23 09:20:00 2022-06-23 10:27:39 Urgent Care Paul Samayoa Unknown, Attending [facility] MEDICAL OFFICE BUILDING 1.84.114 350.1.13.10 4.2.7.2.686 [id number] [facility] 2022-06-23 00:00:00 2022-06-23 00:00:00 Orders Only Doctor Unassigned, [place] [facility] 1.284.114 350.1.13.10 4.2.7.2.686 [id number] [facility] 2022-06-15 09:40:00 2022-06-15 09:40:00 Outpatient R JEREMY GREENE [facility] [id number] [facility] 2022-05-29 08:00:00 2022-05-29 08:00:00 Outpatient R KASSANDRA PUGH [facility] [id number] [facility] 2022-05-15 09:20:00 2022-05-15 09:20:00 Outpatient R BENNETT MILLER [facility] [id number] [facility] 2022-05-11 09:30:00 2022-05-11 09:30:00 Outpatient R KASSANDRA PUGH [facility] [id number] [facility] 2022-05-05 12:26:00 2022-05-05 16:11:00 Emergency X NORTONKARON SHARP [facility] ERT [id number] [facility] 2022-05-05 12:26:00 2022-05-05 16:11:00 Emergency Karon Norton [facility] 1.2.840.114 350.1.13.10 4.2.7.2.686 [id number] [facility] 2022-05-01 00:00:00 2022-05-01 00:00:00 Outpatient R PRASANNA VARGAS VIEN [facility] [id number] [facility] 2022-04-26 08:30:00 2022-04-26 09:59:00 Emergency X OC BRIDGES [facility] ERT [id number] [facility] 2022-04-26 08:30:00 2022-04-26 09:59:00 Emergency Oc Bridges [facility] 1..840.114 350.1.13.10 4.2.7.2.686 [id number] [facility] 2022-04-25 18:23:00 2022-04-25 21:55:00 Emergency X KENNEDY WHITLEY [facility] ERT [id number] [facility] 2022-04-25 18:23:00 2022-04-25 21:55:00 Emergency Kennedy Whitley [facility] 1.2.840.114 350.1.13.10 4.2.7.2.686 [id number] [facility] 2022-04-19 10:00:00 2022-04-19 10:00:00 Outpatient JEREMY LABOY [facility] [id number] [facility] 2022-04-12 00:00:00 2022-04-12 00:00:00 Telephone Kassandra Pugh [facility] 1.2.840.114 350.1.13.10 4.2.7.2.686 [id number] [facility] 2022-04-11 00:00:00 2022-04-11 00:00:00 Telephone Patti Darrion Joey [facility] 1.2.840.114 350.1.13.10 4.2.7.2.686 [id number] [facility] 2022-04-10 00:00:00 2022-04-10 00:00:00 Telephone Kassandra Pugh [facility] 1.2.840.114 350.1.13.10 4.2.7.2.686 [id number] [facility] 2022-04-09 09:30:00 2022-04-09 09:30:00 Office Visit Lonny Pughssica [facility] 1.2.840.114 350.1.13.10 4.2.7.2.686 [id number] [facility] 2022-04-09 09:30:00 2022-04-09 09:21:44 Outpatient R LONNY PUGHSSICA [facility] [id number] [facility] 2022-04-07 13:41:00 2022-04-07 17:49:00 Emergency X OLAMIDE GARVIN [facility] ERT [id number] [facility] 2022-04-07 13:41:00 2022-04-07 17:49:00 Emergency Olamide Garvin [facility] 1.2.114 350.1.13.10 4.2.7.2.686 [id number] [facility] 2022-04-07 00:00:00 2022-04-07 00:00:00 Patient Secure Msg Doctor Unassigned, [place] [facility] 1..114 350.1.13.10 4.2.7.2.686 [id number] [facility] 2022-04-04 00:00:00 2022-04-04 00:00:00 Telephone Lonny Pughssica [facility] 1.84114 350.1.13.10 4.2.7.2.686 [id number] [facility] 2022-04-02 10:30:00 2022-04-02 10:30:00 Outpatient R [facility] [id number] [facility] 2022-03-28 00:00:00 2022-03-28 00:00:00 Patient Secure Msg Doctor Unassigned, [place] [facility] 1.84114 350.1.13.10 4.2.7.2.686 [id number] [facility] 2022-03-24 07:35:00 2022-03-24 13:11:00 Emergency X KELLIE DUNCAN [facility] ERT [id number] [facility] 2022-03-24 07:35:00 2022-03-24 13:11:00 Emergency Kellie Duncan [facility] 1.114 350.1.13.10 4.2.7.2.686 [id number] [facility] 2022-03-23 10:30:00 2022-03-23 10:30:00 Outpatient KASSANDRA MCKINLEY [facility] [id number] [facility] 2022-03-23 00:00:00 2022-03-23 00:00:00 Telephone Darrion Wyatt [facility] TALYA?[facility] MEDICAL OFFICE BUILDING 1..840.114 350.1.13.10 4.2.7.2.686 [id number] [facility] 2022-03-22 00:00:00 2022-03-22 00:00:00 Telephone Darrion Wyatt [facility] TALYA?[facility] MEDICAL OFFICE BUILDING 1..840.114 350.1.13.10 4.2.7.2.686 [id number] [facility] 2022-03-22 00:00:00 2022-03-22 00:00:00 Refill Patti [facility] TALYA?[facility] MEDICAL OFFICE BUILDING 1..840.114 350.1.13.10 4.2.7.2.686 [id number] [facility] 2022-03-21 00:00:00 2022-03-21 00:00:00 Telephone Darrion Wyatt [facility] TALYA?[facility] MEDICAL OFFICE BUILDING 1.2.840.114 350.1.13.10 4.2.7.2.686 [id number] [facility] 2022-03-15 14:00:00 2022-03-15 14:36:19 Outpatient R REJI DÍAZ [facility] [id number] [facility] 2022-03-15 14:00:00 2022-03-15 14:36:19 Office Visit Reji Díaz [facility] EDNA [facility] NAL BUILDING 1..840.114 350.1.13.10 4.2.7.2.686 [id number] [facility] 2022-03-15 08:40:00 2022-03-15 10:47:00 Emergency X LYDIA GOULD [facility] ERT [id number] [facility] 2022-03-15 08:40:00 2022-03-15 10:47:00 Emergency Lydia Gould [facility] 1.840.114 350.1.13.10 4.2.7.2.686 [id number] [facility] 2022-03-14 10:30:00 2022-03-14 10:30:00 Outpatient PRASANNA LOOMIS [facility] [id number] [facility] 2022-03-11 09:22:00 2022-03-11 12:15:00 [facility] [id number] 2022-03-11 09:22:00 2022-03-11 12:15:00 Emergency Angelica Viveros [facility] 1.840.114 350.1.13.10 4.2.7.2.686 [id number] [facility] 2022-03-06 08:30:00 2022-03-06 08:30:00 Outpatient KASSANDRA MCKINLEY [facility] [id number] [facility] 2022-03-02 00:00:00 2022-03-02 00:00:00 Telephone Darrion Wyatt [facility] 1..840.114 350.1.13.10 4.2.7.2.686 [id number] [facility] 2022-02-28 00:00:00 2022-02-28 00:00:00 Patient Secure Msg Doctor Unassigned, [place] [facility] MEDICAL OFF[facility] BUILD[facility] 1.114 350.1.13.10 4.2.7.2.686 [id number] [facility] 2022-02-27 09:30:00 2022-02-27 09:49:42 Outpatient R KASSANDRA PUGH [facility] [id number] [facility] 2022-02-27 09:30:00 2022-02-27 09:49:42 [facility] 1.114 350.1.13.10 4.2.7.2.686 [id number] [facility] 2022-02-27 08:00:00 2022-02-27 09:12:17 Office Visit Ca Martinez [facility] MEDICAL OFFICE BUILDING 1.114 350.1.13.10 4.2.7.2.686 [id number] [facility] 2022-02-26 11:30:00 2022-02-26 11:30:00 Outpatient R KASSANDRA PUGH [facility] [id number] [facility] 2022-02-21 01:20:00 2022-02-21 03:44:00 Emergency X MAGGIE HAMILTON [facility] ERT [id number] [facility] 2022-02-21 01:20:00 2022-02-21 03:44:00 Emergency Maggie Hamilton [facility] 1.114 350.1.13.10 4.2.7.2.686 [id number] [facility] 2022-02-19 00:00:00 2022-02-19 00:00:00 Patient Secure Kendal Medrano [facility] 1.84.114 350.1.13.10 4.2.7.2.686 [id number] [facility] 2022-02-19 00:00:00 2022-02-19 00:00:00 Patient Secure Msg Kendal Zamudio [facility] 1.2.840.114 350.1.13.10 4.2.7.2.686 [id number] [facility] 2022-02-19 00:00:00 2022-02-19 00:00:00 Patient Secure Msg Santiago Bradford [facility] 1.2.840.114 350.1.13.10 4.2.7.2.686 [id number] [facility] 2022-02-19 00:00:00 2022-02-19 00:00:00 Patient Secure g Jing Salazardayami Farzana [facility] MANUFACTURER REPRESENTATIVE [facility] & CHILD HEALTH [facility] 1.2.840.114 350.1.13.10 4.2.7.2.686 [id number] [facility] 2022 11:58:00 2022 15:13:00 Emergency MAGGIE MONTANEZ [facility] ERT [id number] [facility] 2022 11:58:00 2022 15:13:00 Emergency Maggie Hamilton [facility] 1..840.114 350.1.13.10 4.2.7.2.686 [id number] [facility] 2022-02-09 09:00:00 2022-02-09 09:00:00 Outpatient CRICKET FRYE [facility] [id number] [facility] 2022-02-06 10:00:00 2022-02-06 10:00:00 Outpatient CA ARAUZ [facility] [id number] [facility] 2022-02-05 09:45:00 2022-02-05 10:05:00 Nurse Visit Nurse, Filippo [facility] Mitchell Willei [facility] 1..840.114 350.1.13.10 4.2.7.2.686 [id number] [facility] 2022-02-05 09:20:00 2022-02-05 09:20:00 Outpatient FLACO KEE [facility] [id number] [facility] 2022-01-26 00:00:00 2022-01-26 00:00:00 Case Management Prasanna Vargas [facility] PROFESSIO NAL BUILDING 1..840.114 350.1.13.10 4.2.7.2.686 [id number] [facility] 2022-01-22 11:00:00 2022-01-22 11:00:00 Outpatient CA ARAUZ [facility] [id number] [facility] 2022-01-19 00:00:00 2022-01-19 00:00:00 Patient Secure Msg Doctor Unassigned, [place] [facility] 1..840.114 350.1.13.10 4.2.7.2.686 [id number] [facility] 2022-01-18 05:17:00 2022-01-18 10:25:00 Emergency X ROSENDO LEVY [facility] ERT [id number] [facility] 2022-01-18 05:17:00 2022-01-18 10:25:00 Emergency Juan Kennedy [facility] 1..840.114 350.1.13.10 4.2.7.2.686 [id number] [facility] 2022-01-15 08:34:00 2022-01-15 10:49:00 Emergency X MAURA SAMAYOA [facility] ERT [id number] [facility] 2022-01-15 08:34:00 2022-01-15 10:49:00 Emergency Larry Perez Robert Lee [facility] 1..840.114 350.1.13.10 4.2.7.2.686 [id number] [facility] 2022-01-08 18:04:00 2022-01-08 20:09:00 Emergency X HUMBERTO OCHOA [facility] ERT [id number] [facility] 2022-01-08 18:04:00 2022-01-08 20:09:00 Emergency Humberto Ochoa [facility] 1..840.114 350.1.13.10 4.2.7.2.686 [id number] [facility] 2021-12-12 13:30:00 2021-12-12 13:40:21 Outpatient Farzana [facility] [id number] [facility] 2021-12-12 13:30:00 2021-12-12 13:40:21 Office Visit Prasanna Vargas [facility] PROFESSIO [facility] 1.2.840.114 350.1.13.10 4.2.7.2.686 [id number] [facility] 2021-12-12 13:30:00 2021-12-12 13:40:21 Outpatient Farzana CARNES [facility] [id number] [facility] 2021-12-12 13:30:00 2021-12-12 13:40:21 Outpatient Farzana CARNES [facility] [id number] [facility] 2021-12-11 16:15:00 2021-12-11 16:15:00 Outpatient SANTIAGO KING [facility] [id number] [facility] 2021-12-05 14:15:00 2021-12-05 14:15:00 Outpatient ROMULO BROWNING [facility] [id number] [facility] 2021-11-28 08:49:00 2021-11-28 11:02:00 Emergency X KARON NORTON [facility] ERT [id number] [facility] 2021-11-28 08:49:00 2021-11-28 11:02:00 Emergency Karon Norton [facility] 1.840.114 350.1.13.10 4.2.7.2.686 [id number] [facility] 2021-11-28 00:00:00 2021-11-28 00:00:00 Patient Secure Msg Cricket Taylor [facility] MANUFACTURER REPRESENTATIVE [facility] & CHILD [facility] 1..114 350.1.13.10 4.2.7.2.686 [id number] [facility] 2021-11-24 18:14:00 2021-11-24 21:04:00 Emergency X DEV Kaycee [facility] ERT [id number] [facility] 2021-11-24 18:14:00 2021-11-24 21:04:00 Emergency Kaycee Méndezge [facility] 1..114 350.1.13.10 4.2.7.2.686 [id number] [facility] 2021-11-24 00:00:00 2021-11-24 00:00:00 Telephone Cricket Taylor [facility] MANUFACTURER REPRESENTATIVE [facility] CHILD [facility] 1.0.114 350.1.13.10 4.2.7.2.686 [id number] [facility] 2021-11-20 00:00:00 2021-11-20 00:00:00 Patient Secure Msg Kendal Zamudio [facility] 1..114 350.1.13.10 4.2.7.2.686 [id number] [facility] 2021-11-19 00:00:00 2021-11-19 00:00:00 Letter (Out) Leslie Santacruz [facility] 1..840.114 350.1.13.10 4.2.7.2.686 [id number] [facility] 2021-11-18 10:41:40 2021-11-18 23:59:00 Outpatient R JAMES BOYDTANY [facility] [id number] [facility] 2021-11-18 10:41:40 2021-11-18 23:59:00 Hospital Encounter Oliver [facility] OFF[facility] BUILDING 1..840.114 350.1.13.10 4.2.7.2.686 [id number] [facility] 2021-11-18 10:20:00 2021-11-18 10:53:20 Urgent Care Oliver [facility] MEDICAL OFFICE BUILDING 1..840.114 350.1.13.10 4.2.7.2.686 [id number] [facility] 2021-11-09 10:30:00 2021-11-09 10:30:00 Outpatient R DESIREE MIXON [facility] [id number] [facility] 2021-10-25 13:20:00 2021-10-25 13:20:00 [facility] 1..840.114 350.1.13.10 4.2.7.2.686 [id number] [facility] 2021-10-25 13:20:00 2021-10-25 12:47:59 Outpatient R WILLIE MEDRANO [facility] [id number] [facility] 2021-10-25 00:00:00 2021-10-25 00:00:00 Patient Secure Msg Ca Martinez [facility] MEDICAL OFFICE BUILDING 1.2.840.114 350.1.13.10 4.2.7.2.686 [id number] [facility] 2021-10-25 00:00:00 2021-10-25 00:00:00 Telephone [facility] 1.2.840.114 350.1.13.10 4.2.7.2.686 [id number] [id number] [facility] 2021-10-25 00:00:00 2021-10-25 00:00:00 Telephone Provider, [facility] MEDICAL OFFICE BUILDING 1.2.840.114 350.1.13.10 4.2.7.2.686 [id number] [facility] 2021-10-25 00:00:00 2021-10-25 00:00:00 Telephone Nurse, [facility] MEDICAL OFFICE BUILDING 1.2.840.114 350.1.13.10 4.2.7.2.686 [id number] [facility] 2021-10-24 10:15:00 2021-10-24 10:15:00 Outpatient ROMULO BROWNING [facility] [id number] [facility] 2021-10-24 10:15:00 2021-10-24 10:15:00 Outpatient ROMULO BROWNING [facility] [id number] [facility] 2021-10-11 09:30:00 2021-10-11 09:30:00 Outpatient ROMULO BROWNING [facility] [id number] [facility] 2021-10-10 13:30:00 2021-10-10 13:30:00 Outpatient PRASANNA LOOMIS [facility] [id number] [facility] 2021-10-10 13:30:00 2021-10-10 13:30:00 Outpatient R PRASANNA VARGAS [facility] [id number] [facility] 2021-10-10 13:30:00 2021-10-10 13:30:00 Outpatient R PRASANNA VARGAS [facility] [id number] [facility] 2021-10-10 13:30:00 2021-10-10 13:30:00 Outpatient R PRASANNA VARGAS [facility] [id number] [facility] 2021-10-10 13:30:00 2021-10-10 13:30:00 Outpatient R PRASANNA VARGAS [facility] [id number] [facility] 2021-10-10 13:30:00 2021-10-10 13:30:00 Outpatient R PRASANNA VARGAS [facility] [id number] [facility] 2021-10-10 13:30:00 2021-10-10 13:30:00 Outpatient R PRASANNA VARGAS [facility] [id number] [facility] 2021-10-05 00:00:00 2021-10-05 00:00:00 [facility] MEDICAL OFFICE BUILDING 1.84.114 350.1.13.10 4.2.7.2.686 [id number] [facility] 2021-10-05 00:00:00 2021-10-05 00:00:00 Patient Secure Msg [facility] MEDICAL OFFICE BUILDING 1.84.114 350.1.13.10 4.2.7.2.686 [id number] [facility] 2021-10-04 00:00:00 2021-10-04 00:00:00 Pre Visit Outreach Melia Rodriguez 1.84.114 350.1.13.10 4.2.7.2.686 [id number] [facility] 2021-09-28 13:30:00 2021-09-28 13:45:00 Office Visit Richelle Mixonherine Kassandra [facility] 1.2.840.114 350.1.13.10 4.2.7.2.686 [id number] [facility] 2021-09-28 13:30:00 2021-09-28 13:30:00 Outpatient DESIREE STONE [facility] [id number] [facility] 2021-09-28 13:30:00 2021-09-28 13:30:00 Outpatient DESIREE STONE [facility] [id number] [facility] 2021-09-28 00:00:00 2021-09-28 00:00:00 Patient Secure Msg Richelle Mixonherine Kassandra [facility] 1.2.840.114 350.1.13.10 4.2.7.2.686 [id number] [facility] 2021-09-27 14:00:00 2021-09-27 14:00:00 Outpatient TETO BRANTLEY [facility] [id number] [facility] 2021-09-27 09:30:00 2021-09-27 09:30:00 Outpatient DANIA RICARDO [facility] [id number] [facility] 2021-09-27 09:30:00 2021-09-27 09:30:00 Outpatient DANIA RICARDO [facility] [id number] [facility] 2021-09-27 09:30:00 2021-09-27 09:30:00 Outpatient DANIA RICARDO [facility] [id number] [facility] 2021-09-26 10:45:00 2021-09-26 10:45:00 Outpatient CRIKCET FRYE [facility] [id number] [facility] 2021-09-26 10:45:00 2021-09-26 10:45:00 Outpatient R CRICKET TAYLOR [facility] [id number] [facility] 2021-09-26 00:00:00 2021-09-26 00:00:00 Patient Secure Ca Caraballo [facility] MED[facility] OFF[facility] BUILDING 1.2.840.114 350.1.13.10 4.2.7.2.686 [id number] [facility] 2021-09-26 00:00:00 2021-09-26 00:00:00 Patient Secure Ca Caraballo [facility] 1.2.840.114 350.1.13.10 4.2.7.2.686 [id number] [facility] 2021-09-25 10:20:00 2021-09-25 11:10:42 Urgent Care Flaco Boyd Amanda [facility] MEDICAL OFFICE BUILDING 1.2.840.114 350.1.13.10 4.2.7.2.686 [id number] [facility] 2021-09-25 10:20:00 2021-09-25 11:10:42 Outpatient R FLACO BOYD [facility] [id number] [facility] 2021-09-25 10:20:00 2021-09-25 10:20:00 Outpatient R FLACO BOYD [facility] [id number] [facility] 2021-09-25 10:00:00 2021-09-25 10:00:00 Outpatient R PRASANNA VARGAS [facility] [id number] [facility] 2021-09-25 00:00:00 2021-09-25 00:00:00 Telephone Flaco Boyd [facility] MED[facility] OFFICE BUILDING 1.2840.114 350.1.13.10 4.2.7.2.686 [id number] [facility] 2021-09-25 00:00:00 2021-09-25 00:00:00 Patient Secure Msg [facility] 1.840.114 350.1.13.10 4.2.7.2.686 [id number] [facility] 2021-09-25 00:00:00 2021-09-25 00:00:00 Telephone Cricket Taylor [facility] MANUFACTURER REPRESENTATIVE [facility] 1.0.114 350.1.13.10 4.2.7.2.686 [id number] [facility] 2021-09-25 00:00:00 2021-09-25 00:00:00 Telephone Desiree Mixon [facility] 1.0.114 350.1.13.10 4.2.7.2.686 [id number] [facility] 2021-09-15 00:00:00 2021-09-15 00:00:00 Patient Secure Msg Kendal [facility]ud[facility] MED[facility] OFF[facility] BUILDING 1.840.114 350.1.13.10 4.2.7.2.686 [id number] [facility] 2021-09-15 00:00:00 2021-09-15 00:00:00 Patient Secure Msg Kendal Zamudio [facility] MEDICAL OFFICE BUILDING 1.20.114 350.1.13.10 4.2.7.2.686 [id number] [id number] [facility] 2021-09-15 00:00:00 2021-09-15 00:00:00 Patient Secure Msg Kendal Zamudio [facility] MEDICAL OFFICE BUILDING 1.0.114 350.1.13.10 4.2.7.2.686 [id number] [facility] 2021-09-14 00:00:00 2021-09-14 00:00:00 Patient Secure Msg Ca Martinez [facility] 1.0.114 350.1.13.10 4.2.7.2.686 [id number] [facility] 2021-09-14 00:00:00 2021-09-14 00:00:00 Patient Secure Msg Doctor Unassigned, [place] [facility] MED[facility] 1.0.114 350.1.13.10 4.2.7.2.686 [id number] [facility] 2021-09-12 10:30:00 2021-09-12 10:30:00 Outpatient DESIREE STONE [facility] [id number] [facility] 2021-09-12 10:30:00 2021-09-12 10:30:00 Outpatient DESIREE STONE [facility] [id number] [facility] 2021-09-12 00:00:00 2021-09-12 00:00:00 Patient Secure Msg Taj Dsouza [facility] 1.114 350.1.13.10 4.2.7.2.686 [id number] [facility] 2021-09-12 00:00:00 2021-09-12 00:00:00 Orders Only Doctor Unassigned, [place] [facility] 1.2.114 350.1.13.10 4.2.7.2.686 [id number] [facility] 2021-09-12 00:00:00 2021-09-12 00:00:00 Patient Secure Msg Ca Martinez [facility] 1.2840.114 350.1.13.10 4.2.7.2.686 [id number] [facility] 2021-09-05 00:00:00 2021-09-05 00:00:00 Patient Secure Msg Ca Martinez [facility] 1.2840.114 350.1.13.10 4.2.7.2.686 [id number] [facility] 2021-09-05 00:00:00 2021-09-05 00:00:00 Patient Secure Msg Doctor Unassigned, [place] [facility] 1.2.840.114 350.1.13.10 4.2.7.2.686 [id number] [facility] 2021-09-05 00:00:00 2021-09-05 00:00:00 Patient Secure Msg Doctor Unassigned, [place] [facility] 1.2840.114 350.1.13.10 4.2.7.2.686 [id number] [facility] 2021-09-04 00:00:00 2021-09-04 00:00:00 Patient Secure Msg Ca Martinez [facility] 1.2840.114 350.1.13.10 4.2.7.2.686 [id number] [facility] 2021-08-28 00:00:00 2021-08-28 00:00:00 Patient Secure Msg Harsh Charles [facility] 1.2840.114 350.1.13.10 4.2.7.2.686 [id number] [facility] 2021-08-25 00:00:00 2021-08-25 00:00:00 Telephone Dania Pen[facility]ton [facility] MED[facility] OFFICE BUILDING 1.2.840.114 350.1.13.10 4.2.7.2.686 [id number] [facility] 2021-08-25 00:00:00 2021-08-25 00:00:00 Patient Secure Msg Ca Martinez [facility] MEDICAL OFFICE BUILDING 1.2.840.114 350.1.13.10 4.2.7.2.686 [id number] [facility] 2021-08-24 00:00:00 2021-08-24 00:00:00 Telephone Ca Martinez [facility] MEDICAL OFFICE BUILDING 1.2.840.114 350.1.13.10 4.2.7.2.686 [id number] [id number] [facility] 2021-08-24 00:00:00 2021-08-24 00:00:00 Patient Secure Msg Ca Martinez [facility] MEDICAL OFFICE BUILDING 1.2.840.114 350.1.13.10 4.2.7.2.686 [id number] [facility] 2021-08-23 00:00:00 2021-08-23 00:00:00 Patient Secure Msg Ca Martinez [facility] MED[facility] OFF[facility] BUILDING 1.2.840.114 350.1.13.10 4.2.7.2.686 [id number] [facility] 2021-08-23 00:00:00 2021-08-23 00:00:00 Telephone Ca Martinez [facility] MED[facility] OFFICE BUILDING 1.2.840.114 350.1.13.10 4.2.7.2.686 [id number] [facility] 2021-08-22 00:00:00 2021-08-22 00:00:00 Telephone Ca Martinez [facility] MEDICAL OFFICE BUILDING 1.2840.114 350.1.13.10 4.2.7.2.686 [id number] [facility] 2021-08-22 00:00:00 2021-08-22 00:00:00 Patient Secure Msg Hallie Wilkinson [facility] MEDICAL OFFICE BUILDING 1.2840.114 350.1.13.10 4.2.7.2.686 [id number] [facility] 2021-08-18 00:00:00 2021-08-18 00:00:00 Telephone Ca Martinez [facility] 1.840.114 350.1.13.10 4.2.7.2.686 [id number] [facility] 2021-08-17 09:00:00 2021-08-17 09:00:00 Outpatient DESIREE STONE [facility] [id number] [facility] 2021-08-17 09:00:00 2021-08-17 09:00:00 Outpatient DESIREE STONE [facility] [id number] [facility] 2021-08-17 00:00:00 2021-08-17 00:00:00 Patient Secure Msg Prasanna Vargas [facility] PROFESSIO NAL BUILDING 1.2840.114 350.1.13.10 4.2.7.2.686 [id number] [facility] 2021-08-17 00:00:00 2021-08-17 00:00:00 Patient Secure Msg Ca Martinez [facility] MEDICAL OFFICE BUILDING 1.2840.114 350.1.13.10 4.2.7.2.686 [id number] [facility] 2021-08-17 00:00:00 2021-08-17 00:00:00 Patient Secure Msg Ca Martinez [facility] 1.114 350.1.13.10 4.2.7.2.686 [id number] [facility] 2021-08-16 00:00:00 2021-08-16 00:00:00 Patient Secure Msg Ca [facility] 1.114 350.1.13.10 4.2.7.2.686 [id number] [facility] 2021-08-16 00:00:00 2021-08-16 00:00:00 Patient Secure Msg Doctor Unassigned, [place] [facility] 1.114 350.1.13.10 4.2.7.2.686 [id number] [facility] 2021-08-16 00:00:00 2021-08-16 00:00:00 Patient Secure Msg Ca [facility] 1.114 350.1.13.10 4.2.7.2.686 [id number] [facility] 2021-08-16 00:00:00 2021-08-16 00:00:00 Patient Secure Msg Ca Martinez [facility] 1.114 350.1.13.10 4.2.7.2.686 [id number] [facility] 2021-08-15 15:30:00 2021-08-15 16:16:42 Office Visit Ad[facility] 1.2.114 350.1.13.10 4.2.7.2.686 [id number] [facility] 2021-08-15 15:30:00 2021-08-15 16:16:42 Outpatient ADÁN DIEGO [facility] [id number] [facility] 2021-08-15 15:30:00 2021-08-15 15:30:00 Outpatient ADÁN DIEGO [facility] [id number] [facility] 2021-08-15 15:30:00 2021-08-15 15:30:00 Outpatient Farzana KIM [facility] [id number] [facility] 2021-08-15 15:30:00 2021-08-15 15:30:00 Outpatient ADÁN DIEGO [facility] [id number] [facility] 2021-08-15 09:27:00 2021-08-15 12:26:00 Emergency X MAURA SAMAYOA [facility] ERT [id number] [facility] 2021-08-15 09:27:00 2021-08-15 12:26:00 Emergency Maura Samayoa [facility] 1..840.114 350.1.13.10 4.2.7.2.686 [id number] [facility] 2021-08-15 09:27:00 2021-08-15 12:26:00 Emergency MAURA DALE [facility] ERT [id number] [facility] 2021-08-15 00:00:00 2021-08-15 00:00:00 Patient Secure Msg Doctor Unassigned, [place] [facility] 1..840.114 350.1.13.10 4.2.7.2.686 [id number] [facility] 2021-08-14 13:25:00 2021-08-14 23:59:00 Outpatient CA ARAUZ [facility] [id number] [facility] 2021-08-14 13:25:00 2021-08-14 23:59:00 Outpatient R JAMAALCA Cannon [facility] [id number] [facility] 2021-08-14 13:25:00 2021-08-14 13:25:00 Outpatient R JAMAALCA Cannon [facility] [id number] [facility] 2021-08-14 12:19:07 2021-08-14 13:24:00 Outpatient R JAMAALCA Cannon [facility] [id number] [facility] 2021-08-14 12:19:07 2021-08-14 13:24:00 Outpatient R JAMAALCA Cannon [facility] [id number] [facility] 2021-08-14 12:30:00 2021-08-14 13:01:24 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 Lab, Filippo Reneekassandra [facility] TALYA?[facility] [facility] 1.2.840.114 350.1.13.10 4.2.7.2.686 [id number] [facility] 2021-08-14 12:30:00 2021-08-14 12:45:00 [employer] 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 Lab, Filippo Reneekassandra [facility] TALYA?[facility] OFF[facility] BUILDING 1.2.840.114 350.1.13.10 4.2.7.2.686 [id number] [facility] 2021-08-14 11:30:00 2021-08-14 12:31:12 Office Visit Juan [facility] TALYA?[facility] BU[facility] 1.2.840.114 350.1.13.10 4.2.7.2.686 [id number] [id number] [facility] 2021-08-14 11:30:00 2021-08-14 12:31:12 Outpatient R JUANRICHELLEIE [facility] [id number] [facility] 2021-08-14 00:00:00 2021-08-14 00:00:00 Patient Secure Msg Ca Martinez [facility] T[facility] 1.2.840.114 350.1.13.10 4.2.7.2.686 [id number] 044 [id number] [facility] 2021-08-14 00:00:00 2021-08-14 00:00:00 Patient Secure Msg Ca Martinez [facility] 1.2.840.114 350.1.13.10 4.2.7.2.686 [id number] [id number] [facility] 2021-08-09 14:45:00 2021-08-09 14:45:00 Outpatient ADÁN DIEGO [facility] [id number] [facility] 2021-08-09 00:00:00 2021-08-09 00:00:00 Telephone Ca Martinez [facility] T[facility] 1.2.840.114 350.1.13.10 4.2.7.2.686 [id number] [facility] 2021-08-08 11:30:00 2021-08-08 23:59:00 Outpatient CA ARAUZ [facility] [id number] [facility] 2021-08-08 11:30:00 2021-08-08 23:59:00 Hospital Encounter Ca [facility] 1.2.840.114 350.1.13.10 4.2.7.2.686 [id number] [facility] 2021-08-08 11:15:00 2021-08-08 11:15:00 Outpatient CA ARAUZ [facility] [id number] [facility] 2021-08-08 11:00:00 2021-08-08 11:00:00 Outpatient CA ARAUZ [facility] [id number] [facility] 2021-08-08 00:00:00 2021-08-08 00:00:00 Patient Secure Msg Doctor Unassigned, [place] [facility] 1.0.114 350.1.13.10 4.2.7.2.686 [id number] [facility] 2021-08-07 09:30:00 2021-08-07 10:23:21 Office Visit Juan Ca [facility] T[facility] 1..114 350.1.13.10 4.2.7.2.686 [id number] [facility] 2021-08-07 09:30:00 2021-08-07 10:23:21 Outpatient R CA MARTINEZ [facility] [id number] [facility] 2021-08-07 09:30:00 2021-08-07 09:30:00 Outpatient R CA MARTINEZ [facility] [id number] [facility] 2021-08-07 00:00:00 2021-08-07 00:00:00 Patient Secure Msg Ca Martinez [facility] T[facility] 1.20.114 350.1.13.10 4.2.7.2.686 [id number] [facility] 2021-08-07 00:00:00 2021-08-07 00:00:00 Patient Secure Msg Ca Martinez [facility] T[facility] 1..114 350.1.13.10 4.2.7.2.686 [id number] [facility] 2021-08-07 00:00:00 2021-08-07 00:00:00 Patient Secure Msg Desiree Mixon [facility] 1.2840.114 350.1.13.10 4.2.7.2.686 [id number] [facility] 2021-08-04 10:00:00 2021-08-04 10:00:00 Outpatient PETRA MICHAUD [facility] [id number] [facility] 2021-08-04 00:00:00 2021-08-04 00:00:00 Patient Secure Msg Ca [facility] 1..840.114 350.1.13.10 4.2.7.2.686 [id number] [id number] [facility] 2021-08-03 11:00:00 2021-08-03 12:48:43 Office Visit Juan Diaz [facility]. ..840.114 350.1.13.10 4.2.7.2.686 [id number] [facility] 2021-08-03 11:00:00 2021-08-03 12:48:43 Outpatient R JUAN DIAZ [facility] [id number] [facility] 2021-08-03 11:00:00 2021-08-03 11:00:00 Outpatient JUAN YANG [facility] [id number] [facility] 2021-08-03 00:00:00 2021-08-03 00:00:00 Patient Secure Desiree Zheng Kassandra [facility] ..840.114 350.1.13.10 4.2.7.2.686 [id number] [facility] 2021-08-02 00:00:00 2021-08-02 00:00:00 Telephone Ca Martinez [facility] TALYA?[facility] 1..840.114 350.1.13.10 4.2.7.2.686 [id number] [facility] 2021-07-21 08:00:00 2021-07-21 08:52:53 Outpatient DARRION QUIROZ HOWARD [facility] [id number] [facility] 2021-07-17 11:30:00 2021-07-17 11:30:00 Outpatient CA ARAUZ [facility] [id number] [facility] 2021-07-17 00:00:00 2021-07-17 00:00:00 Patient Secure Msg Ca Martinez [facility] TALYA?[facility] OFFICE BUILDING 1.2.840.114 350.1.13.10 4.2.7.2.686 [id number] [id number] [facility] 2021-06-19 00:00:00 2021-06-19 00:00:00 Telephone Ca Martinez [facility] TALYA?[facility] OFFICE BUILDING 1.2.840.114 350.1.13.10 4.2.7.2.686 [id number] 044 [id number] [facility] 2021-06-09 00:00:00 2021-06-09 00:00:00 Telephone Reji Díaz [facility] BUILDING 1.2.840.114 350.1.13.10 4.2.7.2.686 [id number] [facility] 2021-06-06 11:15:00 2021-06-06 11:15:00 Outpatient TETO BRANTLEY [facility] [id number] [facility] 2021-06-06 11:15:00 2021-06-06 11:15:00 Outpatient Farzana CARNES TETO [facility] [id number] [facility] 2021-06-02 15:45:00 2021-06-02 15:45:00 Outpatient CLAUDETTE CEDILLO [facility] [id number] [facility] 2021-05-31 10:00:00 2021-05-31 10:46:31 Outpatient CA ARAUZ [facility] [id number] [facility] 2021-05-31 10:00:00 2021-05-31 10:46:31 Office Visit JuanCa [facility] T[facility]YA?[facility] BU[facility] 1.2.840.114 350.1.13.10 4.2.7.2.686 [id number] [facility] 2021-05-31 10:00:00 2021-05-31 10:46:31 Outpatient R JAMAALCA Cannon [facility] [id number] [facility] 2021-05-31 00:00:00 2021-05-31 00:00:00 Orders Only Doctor Unassigned, [place] [facility] 1.2.840.114 350.1.13.10 4.2.7.2.686 [id number] [facility] 2021-05-26 00:00:00 2021-05-26 00:00:00 Telephone Skylar Groves [facility] TALYA?[facility] MEDICAL OFFICE BUILDING 1.2.840.114 350.1.13.10 4.2.7.2.686 [id number] [id number] [facility] 2021-05-26 00:00:00 2021-05-26 00:00:00 Patient Secure Msg Prasanna Vargas [facility] BUILDING 1.2.840.114 350.1.13.10 4.2.7.2.686 [id number] [facility] 2021-05-25 14:00:00 2021-05-25 14:30:00 Telemedici ne Visit Skylar Groves [facility] TALYA?[facility] MEDICAL OFFICE BUILDING 1.2.840.114 350.1.13.10 4.2.7.2.686 [id number] [facility] 2021-05-25 14:00:00 2021-05-25 14:00:00 Outpatient R SKYLAR GROVES [facility] [id number] [facility] 2021-05-25 14:00:00 2021-05-25 14:00:00 Outpatient R SKYLAR GROVES [facility] [id number] [facility] 2021-05-25 00:00:00 2021-05-25 00:00:00 Patient Secure Msg Skylar Groves [facility] TALYA?[facility] MEDICAL OFFICE BUILDING 1.2.840.114 350.1.13.10 4.2.7.2.686 [id number] [id number] [facility] 2021-05-25 00:00:00 2021-05-25 00:00:00 Patient Secure g Skylar Groves [facility] TALYA?[facility] MEDICAL OFFICE BUILDING 1.2.840.114 350.1.13.10 4.2.7.2.686 [id number] [facility] 2021-05-24 00:00:00 2021-05-24 00:00:00 Telephone Rad SerraHPilar [facility] BUILDING 1.2.840.114 350.1.13.10 4.2.7.2.686 [id number] [facility] 2021-05-24 00:00:00 2021-05-24 00:00:00 Patient Secure Msg Rad SerraHPilar [facility] BUILDING 1.2.840.114 350.1.13.10 4.2.7.2.686 [id number] [facility] 2021-05-24 00:00:00 2021-05-24 00:00:00 Patient Secure Msg Claudette Evans [facility] TALYA?[facility] MEDICAL OFFICE BUILDING 1.2.840.114 350.1.13.10 4.2.7.2.686 [id number] [facility] 2021-05-23 10:00:00 2021-05-23 10:00:00 Outpatient R [facility] [id number] [facility] 2021-05-23 10:00:00 2021-05-23 10:00:00 Outpatient R [facility] [id number] [facility] 2021-05-23 00:00:00 2021-05-23 00:00:00 Patient Secure Carmelina Hindsrico Cannon [facility] 1..840.114 350.1.13.10 4.2.7.2.686 [id number] [id number] [facility] 2021-05-16 09:00:00 2021-05-16 09:00:00 Outpatient Farzana ADOLFOZAMZAM TETO [facility] [id number] [facility] 2021-05-12 00:00:00 2021-05-12 00:00:00 Orders Only Doctor Unassigned, [place] [facility] .840.114 350.1.13.10 4.2.7.2.686 [id number] [facility] 2021-05-10 13:00:00 2021-05-10 13:00:00 Outpatient CARMELINA CEDILLOTAINAANITRA [facility] [id number] [facility] 2021-05-10 13:00:00 2021-05-10 13:00:00 Outpatient CARMELINA CEDILLORICO [facility] [id number] [facility] 2021-05-09 00:00:00 2021-05-09 00:00:00 Telephone Prasanna Vargas [facility] BUILDING ..840.114 350.1.13.10 4.2.7.2.686 [id number] [facility] 2021-05-09 00:00:00 2021-05-09 00:00:00 Patient Secure Rad Wells [facility] 1..840.114 350.1.13.10 4.2.7.2.686 [id number] [facility] 2021-05-08 16:00:00 2021-05-08 16:00:00 Outpatient JE CRABTREE [facility] [id number] [facility] 2021-05-08 16:00:00 2021-05-08 16:00:00 [facility] [id number] [facility] 2021-05-08 00:00:00 2021-05-08 00:00:00 Patient Secure Msg DelroyRad KayceePilarPilar [facility] BUILDING 1.2.840.114 350.1.13.10 4.2.7.2.686 [id number] [facility] 2021-05-08 00:00:00 2021-05-08 00:00:00 Patient Secure Msg Rad SerraHPilar [facility] BUILDING 1.2.840.114 350.1.13.10 4.2.7.2.686 [id number] [facility] 2021-05-04 00:00:00 2021-05-04 00:00:00 Patient Secure Msg DelroyRad KayceePilarHPilar [facility] BUILDING 1.2.840.114 350.1.13.10 4.2.7.2.686 [id number] [facility] 2021-05-04 00:00:00 2021-05-04 00:00:00 Patient Secure Msg Laith Díaztay [facility] 1.2.840.114 350.1.13.10 4.2.7.2.686 [id number] [facility] 2021-05-03 11:15:36 2021-05-03 23:59:00 Outpatient R REJI DÍAZ [facility] [id number] [facility] 2021-05-03 11:15:36 2021-05-03 23:59:00 Hospital Encounter Reji Daíz [facility] BUILDING 1.2.840.114 350.1.13.10 4.2.7.2.686 [id number] [facility] 2021-05-03 00:00:00 2021-05-03 00:00:00 Telephone Claudette Evans [facility] MEDICAL OFFICE BUILDING 1.2.840.114 350.1.13.10 4.2.7.2.686 [id number] [facility] 2021-05-02 00:00:00 2021-05-02 00:00:00 Telephone Rad Serra [facility] BUILDING 1.2.840.114 350.1.13.10 4.2.7.2.686 [id number] [id number] [facility] 2021-05-02 00:00:00 2021-05-02 00:00:00 Patient Secure Msg Claudette Evans [facility] MEDICAL OFFICE BUILDING 1..840.114 350.1.13.10 4.2.7.2.686 [id number] [id number] [facility] 2021-05-02 00:00:00 2021-05-02 00:00:00 Telephone Claudette Evans [facility] TALYA?[facility] MEDICAL OFFICE BUILDING 1.2.840.114 350.1.13.10 4.2.7.2.686 [id number] 044 [id number] [facility] 2021-05-02 00:00:00 2021-05-02 00:00:00 Patient Secure Msg Rad Serra [facility] BUILDING 1..840.114 350.1.13.10 4.2.7.2.686 [id number] [id number] [facility] 2021-05-02 00:00:00 2021-05-02 00:00:00 Patient Secure Claudette Hinds [facility] T[facility]YA[facility] 1..840.114 350.1.13.10 4.2.7.2.686 [id number] 044 [id number] [facility] 2021-04-28 00:00:00 2021-04-28 00:00:00 Patient Secure Claudette Hinds [facility] TALYA?[facility] OFFICE BUILDING 1.84.114 350.1.13.10 4.2.7.2.686 [id number] [facility] 2021-04-27 14:24:00 2021-04-27 15:49:00 Emergency X MAGGIE HAMILTON [facility] ERT [id number] [facility] 2021-04-27 14:24:00 2021-04-27 15:49:00 Emergency Maggie Hamilton [facility] 1.84.114 350.1.13.10 4.2.7.2.686 [id number] [facility] 2021-04-27 11:15:00 2021-04-27 11:30:00 Laboratory Only Only, Ang Db Test Unknown, Attending Thony Johnson [facility] MEDICAL OFFICE BUILDING 1.84.114 350.1.13.10 4.2.7.2.686 [id number] [facility] 2021-04-27 11:15:00 2021-04-27 11:15:00 Outpatient R THONY JOHNSON [facility] [id number] [facility] 2021-04-27 00:00:00 2021-04-27 00:00:00 Orders Only Doctor Unassigned, [place] [facility] 1.2840.114 350.1.13.10 4.2.7.2.686 [id number] [facility] 2021-04-20 15:00:00 2021-04-20 15:00:00 Outpatient SCOTT RENEE [facility] [id number] [facility] 2021-04-13 00:00:00 2021-04-13 00:00:00 Patient Secure Msg Claudette Evans [facility] OFFICE BUILDING 1.2840.114 350.1.13.10 4.2.7.2.686 [id number] 044 [id number] [facility] 2021-04-12 00:00:00 2021-04-12 00:00:00 Telephone MillerClaudette ibrahim [facility] MEDICAL OFFICE BUILDING 1.2840.114 350.1.13.10 4.2.7.2.686 [id number] [facility] 2021-03-27 00:00:00 2021-03-27 00:00:00 Telephone Prasanna Vargas [facility] BUILDING 1.2840.114 350.1.13.10 4.2.7.2.686 [id number] [facility] 2021-03-24 00:00:00 2021-03-24 00:00:00 Patient Secure Msg Doctor Unassigned, [place] [facility] 1.2840.114 350.1.13.10 4.2.7.2.686 [id number] [facility] 2021-03-23 13:30:00 2021-03-23 13:30:00 Outpatient PINO AGUIAR [facility] [id number] [facility] 2021-03-23 13:30:00 2021-03-23 13:30:00 Outpatient R JOSE HOFFMADDIE [facility] [id number] [facility] 2021-03-22 09:20:00 2021-03-22 09:20:00 Outpatient R ADITYA MEEKS NEHEMIAH MEEKSNHEz [facility] [id number] [facility] 2021-03-22 09:20:00 2021-03-22 09:20:00 Outpatient R NEHEMIAH MEEKSMEGHANEz MEEKS [facility] [id number] [facility] 2021-03-20 00:00:00 2021-03-20 00:00:00 Outpatient R CLAUDETTE EVANS [facility] [id number] [facility] 2021-03-18 00:00:00 2021-03-18 00:00:00 Case Management Claudette Evans Kassandra [facility] MEDICAL OFFICE BUILDING 1.2.840.114 350.1.13.10 4.2.7.2.686 [id number] [facility] 2021-03-16 11:16:07 2021-03-16 11:31:07 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 Lab, Filippo - Claudette Goodson [facility] ANGLEROBERTA ROSENE?[facility] MEDICAL OFFICE BUILDING 1.2.840.114 350.1.13.10 4.2.7.2.686 [id number] [facility] 2021-03-16 11:30:00 2021-03-16 11:30:00 Outpatient R CLAUDETTE EVANS [facility] [id number] [facility] 2021-03-16 11:00:00 2021-03-16 11:14:45 Outpatient R CLAUDETTE EVANS [facility] [id number] [facility] 2021-03-16 10:00:58 2021-03-16 11:14:45 Office Visit Claudette Evans Kassandra [facility] MEDICAL OFFICE BUILDING 1.84.114 350.1.13.10 4.2.7.2.686 [id number] [facility] 2021-03-16 00:00:00 2021-03-16 00:00:00 Patient Secure Msg Claudette Evans [facility] 1.840.114 350.1.13.10 4.2.7.2.686 [id number] [facility] 2021-03-02 16:15:00 2021-03-02 16:15:00 Outpatient R CRISTINACARMELINA IBRAHIMRICO [facility] [id number] [facility] 2021-02-28 18:30:00 2021-02-28 18:30:00 Outpatient R WILLIE MEDRANO [facility] [id number] [facility] 2021-02-28 00:00:00 2021-02-28 00:00:00 Telephone Claudette Evans [facility] Talya?[facility] Building 1.84.114 350.1.13.10 4.2.7.2.686 [id number] [facility] 2021-02-27 09:00:00 2021-02-27 09:00:00 Outpatient AMELIA OBRIEN [facility] [id number] [facility] 2021-02-23 00:00:00 2021-02-23 00:00:00 Telephone Claudette Evans [facility] Talya?[facility] 1.84.114 350.1.13.10 4.2.7.2.686 [id number] [facility] 2021-02-10 18:12:00 2021-02-10 23:39:00 Emergency Kaycee Méndez [facility] 1.84.114 350.1.13.10 4.2.7.2.686 [id number] [facility] 2021-02-10 00:00:00 2021-02-10 00:00:00 Patient Secure Msg Branden Evansful A [facility] ANGLEROBERTA LUNDBERG?[facility] MEDICAL OFFICE BUILDING 1.2.840.114 350.1.13.10 4.2.7.2.686 [id number] [facility] 2021-02-10 00:00:00 2021-02-10 00:00:00 Patient Secure Msg Branden Evansful Kassandra [facility] ANGLEROBERTA ROSENE?[facility] MEDICAL OFFICE BUILDING 1.2.840.114 350.1.13.10 4.2.7.2.686 [id number] [facility] 2021-02-10 00:00:00 2021-02-10 00:00:00 Patient Secure Msg Branden Evansful Kassandra [facility] ANGLEROBERTA LUNDBERG?[facility] MEDICAL OFFICE BUILDING 1.2.840.114 350.1.13.10 4.2.7.2.686 [id number] [facility] 2021-02-10 00:00:00 2021-02-10 00:00:00 Patient Secure Msg Branden Evansful Kassandra [facility] ANGLEROBERTA LUNDBERG?[facility] MEDICAL OFFICE BUILDING 1.2.840.114 350.1.13.10 4.2.7.2.686 [id number] [facility] 2021-02-09 13:40:00 2021-02-09 23:59:00 Hospital Encounter Claudette Evans [facility] Dave?[facility] 1.2.840.114 350.1.13.10 4.2.7.2.686 [id number] [facility] 2021-02-09 13:49:05 2021-02-09 14:04:05 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 Lab, Filippo Shirley Claudette Evans A [facility] Lakeroberta Lundberg?Lino moe Medical Office Building 1.2.840.114 350.1.13.10 4.2.7.2.686 [id number] [facility] 2021-02-09 12:23:13 2021-02-09 13:47:12 Office Visit Claudette Evans [facility] Clear Lakeroberta Lundberg?Lino livingston Medical Office Building 1..840.114 350.1.13.10 4.2.7.2.686 [id number] [facility] 2021-02-09 13:00:00 2021-02-09 13:00:00 Outpatient R CRISTINACARMELINARICO [facility] [id number] [facility] 2021-02-09 00:00:00 2021-02-09 00:00:00 Patient Secure Msg Doctor Unassigned, [place] [facility] 1..840.114 350.1.13.10 4.2.7.2.686 [id number] [facility] 2021-02-08 10:20:00 2021-02-08 10:20:00 Outpatient R ADITYA MEEKS STRAHIL [facility] [id number] [facility] 2021-02-07 00:00:00 2021-02-07 00:00:00 Patient Secure Msg [facility] MEDICAL OFFICE BUILDING 1.2.840.114 350.1.13.10 4.2.7.2.686 [id number] [facility] 2021-02-02 10:30:00 2021-02-02 10:30:00 Outpatient R SKYLAR GROVES [facility] [id number] [facility] 2021-02-02 00:00:00 2021-02-02 00:00:00 Telephone CristinaCarmelinarico Kassandra [facility] Clear Lakeroberta Lundberg?Blea kney Medical Office Building 1.2.840.114 350.1.13.10 4.2.7.2.686 [id number] [facility] 2021-02-01 08:30:00 2021-02-01 08:30:00 Outpatient SKYLAR CEBALLOS [facility] [id number] [facility] 2021-01-31 18:44:04 2021-01-31 19:41:26 [facility] Building 1.2.840.114 350.1.13.10 4.2.7.2.686 [id number] [facility] 2021-01-31 19:00:00 2021-01-31 19:00:00 Outpatient R JAMES BOYDTANY [facility] [id number] [facility] 2021-01-31 00:00:00 2021-01-31 00:00:00 Telephone Claudette Evans Kassandra [facility] Talya?[facility] 1..840.114 350.1.13.10 4.2.7.2.686 [id number] [facility] 2021-01-31 00:00:00 2021-01-31 00:00:00 Patient Secure Msg Claud[facility] MEDICAL OFFICE BUILDING 1.2.840.114 350.1.13.10 4.2.7.2.686 [id number] [facility] 2021-01-30 00:00:00 2021-01-30 00:00:00 Telephone Rad Serra [facility] Edna [facility] nal Building 1.2.840.114 350.1.13.10 4.2.7.2.686 [id number] [facility] 2021-01-30 00:00:00 2021-01-30 00:00:00 Patient Secure Msg Claudette Evans [facility] OFF[facility] ONE 1.2.840.114 350.1.13.10 4.2.7.2.686 [id number] [facility] 2021-01-26 14:00:00 2021-01-26 14:00:00 Outpatient R RAD SERRA [facility] [id number] [facility] 2021-01-26 00:00:00 2021-01-26 00:00:00 Patient Secure Msg Skylar Groves [facility] OFFICE BUILDING 1.2.840.114 350.1.13.10 4.2.7.2.686 [id number] [facility] 2021-01-25 15:00:00 2021-01-25 15:00:00 Outpatient R [facility] [id number] [facility] 2021-01-21 00:00:00 2021-01-21 00:00:00 Patient Secure Msg Skylar Groves [facility] OFFICE BU[facility]ING 1.2.840.114 350.1.13.10 4.2.7.2.686 [id number] [facility] 2021-01-20 16:51:22 2021-01-20 17:12:41 Telemedici ne Visit Skylar Groves Formerly [facility] Talya[facility] Building 1.2.840.114 350.1.13.10 4.2.7.2.686 [id number] [facility] 2021-01-20 16:30:00 2021-01-20 16:30:00 Outpatient R SKYLAR GROVES [facility] [id number] [facility] 2021-01-19 10:15:00 2021-01-19 10:15:00 Outpatient R KAYLEY GARCÍA [facility] [id number] [facility] 2021-01-14 00:00:00 2021-01-14 00:00:00 Case Management Kassandra Robledo [facility] 1.114 350.1.13.10 4.2.7.2.686 [id number] [facility] 2021-01-14 00:00:00 2021-01-14 00:00:00 Patient Secure Msg Doctor Unassigned, [place] [facility] 1.114 350.1.13.10 4.2.7.2.686 [id number] [facility] 2021-01-12 16:10:00 2021-01-12 19:45:00 Emergency Hany Matthews [facility] 1.114 350.1.13.10 4.2.7.2.686 [id number] [facility] 2021-01-12 15:20:00 2021-01-12 15:20:00 Outpatient R WILLIE MEDRANO [facility] [id number] [facility] 2021-01-12 14:46:57 2021-01-12 15:06:57 Urgent Care Thony [facility] Office Building 1.114 350.1.13.10 4.2.7.2.686 [id number] [facility] 2020-12-26 15:30:00 2020-12-26 16:13:32 Outpatient R RAD SERRA [facility] [id number] [facility] 2020-12-26 15:30:00 2020-12-26 16:13:32 Office Visit Rad Serra [facility] PROFESSIO NAL BUILDING 1..114 350.1.13.10 4.2.7.2.686 [id number] [facility] 2020-12-26 15:00:32 2020-12-26 16:13:32 Office Visit Rad Serra [facility] Building 1.2.840.114 350.1.13.10 4.2.7.2.686 [id number] [facility] 2020-12-26 15:30:00 2020-12-26 15:30:00 Outpatient R RAD SERRA [facility] [id number] [facility] 2020-11-29 00:00:00 2020-11-29 00:00:00 Patient Secure Msg Rad Serra [facility] BUILDING 1.2.840.114 350.1.13.10 4.2.7.2.686 [id number] [facility] 2020-11-22 11:00:00 2020-11-22 11:00:00 Outpatient DESIREE STONE [facility] [id number] [facility] 2020-11-10 18:42:46 2020-11-10 19:53:43 Urgent Care Alissa Collins [facility] Office Building One 1.2.840.114 350.1.13.10 4.2.7.2.686 [id number] 2020-11-10 19:00:00 2020-11-10 19:00:00 Outpatient R [facility] [id number] [facility] 2020-10-31 18:52:00 2020-10-31 22:15:00 Emergency Kaycee Méndez [facility] 1.2.840.114 350.1.13.10 4.2.7.2.686 [id number] 2020-10-31 19:00:00 2020-10-31 19:00:00 Outpatient R BEBA KAUR [facility] [id number] [facility] 2020-10-31 00:00:00 2020-10-31 00:00:00 Orders Only Doctor Unassigned, [place] [facility] 1.2.840.114 350.1.13.10 4.2.7.2.686 [id number] 2020-10-20 14:02:00 2020-10-20 17:13:00 Emergency Dev, Kaycee Sharlene [facility] 1.2.840.114 350.1.13.10 4.2.7.2.686 [id number] 2020-10-18 00:00:00 2020-10-18 00:00:00 Patient Secure Msg Prasanna Vargas [facility] BUILDING 1.2.840.114 350.1.13.10 4.2.7.2.686 [id number] [facility] 2020-10-14 10:00:00 2020-10-14 23:59:00 Hospital Encounter Prasanna Vargas [facility] 1.2.840.114 350.1.13.10 4.2.7.2.686 [id number] 2020-10-14 13:30:00 2020-10-14 13:30:00 Outpatient DESIREE SOTNE [facility] [id number] [facility] 2020-10-11 00:00:00 2020-10-11 00:00:00 Patient Secure Msg Prasanna Vargas [facility] BU[facility] 1.2.840.114 350.1.13.10 4.2.7.2.686 [id number] 134 [id number] [facility] 2020-10-11 00:00:00 2020-10-11 00:00:00 Patient Secure Msg [facility] 1.2.840.114 350.1.13.10 4.2.7.2.686 [id number] 134 [id number] [facility] 2020-10-09 12:00:00 2020-10-09 15:57:00 Emergency Lydia Kim [facility] 1.2.840.114 350.1.13.10 4.2.7.2.686 [id number] 2020-10-07 00:00:00 2020-10-07 00:00:00 Patient Secure Msg Prasanna Vargas [facility] NAL BUILDING 1.2.840.114 350.1.13.10 4.2.7.2.686 [id number] 134 [id number] [facility] 2020-10-07 00:00:00 2020-10-07 00:00:00 Patient Secure Msg Prasanna Vargas [facility] N[facility] BU[facility]ING 1.2.840.114 350.1.13.10 4.2.7.2.686 [id number] [facility] 2020-10-07 00:00:00 2020-10-07 00:00:00 Patient Secure Msg Prasanna Vargas [facility] NAL BUILD[facility] 1.2.840.114 350.1.13.10 4.2.7.2.686 [id number] [facility] 2020-10-07 00:00:00 2020-10-07 00:00:00 Patient Secure Msg Prasanna Vargas [facility] N[facility] BU[facility]ING 1.2.840.114 350.1.13.10 4.2.7.2.686 [id number] [facility] 2020-10-07 00:00:00 2020-10-07 00:00:00 Patient Secure Msg Prasanna Vargas [facility] BU[facility] 1.2.840.114 350.1.13.10 4.2.7.2.686 [id number] [facility] 2020-10-07 00:00:00 2020-10-07 00:00:00 Patient Secure Msg [facility] BU[facility] 1.2.840.114 350.1.13.10 4.2.7.2.686 [id number] [facility] 2020-10-07 00:00:00 2020-10-07 00:00:00 Patient Secure M[facility] BU[facility] 1.2.840.114 350.1.13.10 4.2.7.2.686 [id number] 134 [id number] [facility] 2020-10-06 08:53:00 2020-10-06 09:46:44 Office Visit Prasanna Vargas [facility] Building 1.2.840.114 350.1.13.10 4.2.7.2.686 [id number] 2020-10-06 09:30:00 2020-10-06 09:30:00 Outpatient PRASANNA LOOMIS [facility] [id number] [facility] 2020-10-04 14:00:00 2020-10-04 14:00:00 Outpatient DESIREE STONE [facility] [id number] [facility] 2020-09-30 10:30:00 2020-09-30 10:30:00 Outpatient DESIREE STONE [facility] [id number] [facility] 2020-09-29 13:45:00 2020-09-29 13:45:00 Outpatient PREET KRISHNA [facility] [id number] [facility] 2020-09-06 15:30:00 2020-09-06 15:30:00 Outpatient PRASANNA LOOMIS [facility] [id number] [facility] 2020-09-05 00:00:00 2020-09-05 00:00:00 Patient Secure Msg Vargas, Prasanna Cam [facility] NAL BUILDING 1.2.840.114 350.1.13.10 4.2.7.2.686 [id number] [facility] 2020-09-02 15:40:00 2020-09-02 15:40:00 Outpatient DARRION QUIROZ HOWARD [facility] [id number] [facility] 2020-08-31 10:30:00 2020-08-31 10:30:00 Outpatient RAD MATAMOROS [facility] [id number] [facility] 2020-08-31 00:00:00 2020-08-31 00:00:00 [facility] 1.2.840.114 350.1.13.10 4.2.7.2.686 [id number] [facility] 2020-08-18 09:30:00 2020-08-18 09:30:00 Outpatient R PRASANNA VARGAS [facility] [id number] [facility] 2020-08-11 13:30:00 2020-08-11 13:30:00 Outpatient PRASANNA LOOMIS [facility] [id number] [facility] 2020-08-04 14:00:00 2020-08-04 14:00:00 Outpatient R SCOTT FLETCHER [facility] [id number] [facility] 2020-07-28 10:30:00 2020-07-28 10:30:00 Outpatient RAD MATAMOROS [facility] [id number] [facility] 2020-06-30 16:15:00 2020-06-30 16:15:00 Outpatient CLAUDETTE CEDILLO [facility] [id number] [facility] 2020-06-17 15:00:00 2020-06-17 15:00:00 Outpatient DARRION QUIROZ HOWARD [facility] [id number] [facility] 2020-06-16 15:30:00 2020-06-16 15:30:00 Outpatient R RAD SERRA [facility] [id number] [facility] 2020-06-09 12:30:00 2020-06-09 12:30:00 Outpatient R NI DISLA [facility] [id number] General acute hospital 2020-06-08 08:00:00 2020-06-08 08:00:00 Outpatient R NI DISLA [facility] [id number] General acute hospital 2020-06-02 09:00:00 2020-06-02 09:00:00 Outpatient R RAD SERRA [facility] [id number] [facility] 2020-05-28 10:00:00 2020-05-28 10:00:00 Outpatient R BEBA KAUR [facility] [id number] [facility] 2020-05-26 00:00:00 2020-05-26 00:00:00 Patient Secure Msg Claudette Evans [facility] ONE 1.2.840.114 350.1.13.10 4.2.7.2.686 [id number] [facility] 2020-05-24 10:00:00 2020-05-24 10:00:00 Outpatient R NI DISLA [facility] [id number] General acute hospital 2020-05-24 00:00:00 2020-05-24 00:00:00 Patient Secure Msg Doctor Unassigned, [place] [facility] BUILDING 1.2.840.114 350.1.13.10 4.2.7.2.686 [id number] [facility] 2020-05-19 16:30:00 2020-05-19 16:30:00 Outpatient R OSITO HITCHCOCK [facility] [id number] [facility] 2020-05-17 13:00:00 2020-05-17 13:00:00 Outpatient Farzana WYATT DARRION DARRION WYATT [facility] [id number] [facility] 2020-05-16 16:00:00 2020-05-16 16:00:00 Outpatient R CLAUDETTE EVANS [facility] [id number] [facility] 2020-05-09 00:00:00 2020-05-09 00:00:00 Patient Secure Claudette Hinds [facility] ONE ..840.114 350.1.13.10 4.2.7.2.686 [id number] [facility] 2020-05-08 10:24:00 2020-05-08 13:03:00 Emergency X OLAMIDE GARVIN [facility] ERT [id number] [facility] 2020-05-03 15:00:00 2020-05-03 15:00:00 Outpatient R CARMELINA EVANSANITRA [facility] [id number] [facility] 2020-04-30 11:14:00 2020-05-01 15:50:00 Outpatient X ELE HOFFND [facility] [place] [id number] [facility] 2020-04-30 10:20:00 2020-04-30 10:20:00 Outpatient R ROSALES SHAY [facility] [id number] [facility] 2020-04-30 10:15:00 2020-04-30 10:15:00 Outpatient R ROSALES SHAY [facility] [id number] [facility] 2020-04-29 00:00:00 2020-04-29 00:00:00 Patient Secure Osito Hitchcock [facility] ..840.114 350.1.13.10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 the T2 fat-suppressed axial [...] No lymphadenopathy. VESSELS:Unremarkable. BONES AND SOFT TISSUES: Unremarkable.[facility] CenterMR [facility] W WO CONTRAST [id number] 21:07:42EXAM: MRI ABDOMEN with and without CONTRAST [...] cholecystectomy. There is a tiny focus of T5aibqrpljrssblc seen only on the T2 fat-suppressed axial [...] No lymphadenopathy. VESSELS:Unremarkable. BONES AND SOFT TISSUES: Unremarkable.[facility] CenterPOCT GLUCOSE (AUTOMATED) 2024-02-24 01:35:26* Test Item Value Reference Range Interpretation Comme nts POCT GLU (test code = 1315163426) 95 mg/dL 70-110 Lab Interpretation (test cod e = 61758-8) Normal [facility] CenterPOCT GLUCOSE (AUTOMATED)2024-02-24 01:35:26* Test Item Value Reference Range Interpretation Comme nts POCT GLU (test code = 8785956070) 95 mg/dL 70-110 Lab Interpretation (test cod e = 25855-1) Normal [facility] CenterHcv Mftndvpa2580-47-16 21:28:55* Test Item Value Reference Range Interpretation Comme nts HCV Ab (test code = 22923-1) Negative HCV Semi-Quantitative (test code = 75725-8) 0.01 [facility] CenterHcv Ctkkscpj5671-28-26 21:28:55* Test Item Value Reference Range Interpretation Comme nts HCV Ab (test code = 82483-2) Negative HCV Semi-Quantitative (test code = 02687-5) 0.01 [facility] CenterC-Reactive Njwibxa9886-52-53 18:59:19* Test Item Value Reference Range Interpretation Comme nts CRP (test code = 5956411699) 0.3 mg/dL <=0.8 Lab Interpretation (test cod e = 84112-4) Normal [facility] CenterC-Reactive Mdnmxmy6716-08-53 18:59:19* Test Item Value Reference Range Interpretation Comme nts CRP (test code = 6071915593) 0.3 mg/dL <=0.8 Lab Interpretation (test cod e = 65320-9) Normal [facility] CenterHepatitis B Surface Pwjxbqvr1462-73-38 16:37:53* Test Item Value Reference Range Interpretation Comme nts HBsAB (test code = 8624093514) Negative HBsAb Semi-Quantitative (test code = 9289403544) 0.00 mIU/mL WESLEY (test code = WESLEY) Interpretation: ?Hepatitis B Surface Antibody ? Negative - Patient is considered to be not immune to infection with HBV. ? ? Positive - Anti-HBs detected at greater than or equal to 12 mIU/mL. ?Patient is considered to be immune to infection with HBV. ? [facility] CenterHepatitis B Surface Palzidax3729-79-09 16:37:53* Test Item Value Reference Range Interpretation Comme nts HBsAB (test code = 6733817562) Negative HBsAb Semi-Quantitative (test code = 0841951154) 0.00 mIU/mL WESLEY (test code = WESLEY) Interpretation: ?Hepatitis B Surface Antibody ? Negative - Patient is considered to be not immune to infection with HBV. ? ? Positive - Anti-HBs detected at greater than or equal to 12 mIU/mL. ?Patient is considered to be immune to infection with HBV. ? [facility] 1/2 Ag-Ab with Swedsh2882-03-70 16:37:47* Test Item Value Reference Range Interpretation Comme nts HIV Semi-quantitative (test code = 18391-7) 0.09 Negative WESLEY (test code = WESLEY) Non-reactive for HIV-1 antigen and HIV-1/HIV-2 antibodies. ?No laboratory evidence of HIV infection. ?Repeat in 2-4 weeks if acute HIV infection is suspected. [facility] B Surface Nszyclh4547-38-95 16:37:47 * Test Item Value Reference Range Interpretation Comme nts HBsAg Semi-Quantitative (maeve t code = 5195-3) 0.12 [facility] with Plytwi0814-70-04 16:37:47* Test Item Value Reference Range Interpretation Comme nts HIV Semi-quantitative (test code = 40317-8) 0.09 Negative WESLEY (test code = WESLEY) Non-reactive for HIV-1 antigen and HIV-1/HIV-2 antibodies. ?No laboratory evidence of HIV infection. ?Repeat in 2-4 weeks if acute HIV infection is suspected. [facility] B Surface Xgoidgv8104-41-03 16:37:47 * Test Item Value Reference Range Interpretation Comme nts HBsAg Semi-Quantitative (maeve t code = 5195-3) 0.12 Negative [facility] CenterHbc Antibody (IgM & IgG)2024-02-23 16:37:42* Test Item Value Reference Range Interpretation Comme nts HBC (test code = 6899050420) Negative HBC Semi-Quantitative (test code = 3433380803) 3.51 [facility] CenterHbc Antibody (IgM & IgG)2024-02-23 16:37:42* Test Item Value Reference Range Interpretation Comme nts HBC (test code = 3651287858) Negative HBC Semi-Quantitative (test code = 2530664939) 3.51 [facility] CenterSedimentation Cnvv7518-35-22 13:48:13* Test Item Value Reference Range Interpretation Comme nts ESR (test code = 31616-6) 23 2-30 Lab Interpretation (test cod e = 41646-4) [facility] Ofiv5659-10-71 13:48:13* Test Item Value Reference Range Interpretation Comme nts ESR (test code = 75237-4) 23 2-30 Lab Interpretation (test cod e = 69949-8) Normal [facility] CenterHepatic Function Panel (90178) (ALB,T.PRO,BILI T,BU/BC,ALT,AST,ALK PHOS)2024-02-22 19:51:55* Test Item Value Reference Range Interpretation Comme nts TOTAL BILI (test code = 0997737337) 1.0 mg/dL 0.1-1.1 BILI UNCON (test code = 9585696455) 0.4 mg/dL 0.1-1.1 BILI CONJ (test code = 9642006554) 0.0 mg/dL 0.0-0.3 T PROTEIN (test code = 4425748942) 8.5 g/dL 6.3-8.2 H ALBUMIN (test code = 9405783141) 4.9 g/dL 3.5-5.0 ALK PHOS (test code = 5946963363) 87 U/L 34-122 Slight hemolysis ALTv (test code = 1742-6) 77 U/L 5-35 H AST(SGOT) (test code = 8983510682) 57 U/L 13-40 H Slight hemolysis Lab Interpretation (test code = 82472-6) Abnormal [facility] CenterHepatic Function Panel (82350) (ALB,T.PRO,BILI T,BU/BC,ALT,AST,ALK PHOS)2024-02-22 19:51:55* Test Item Value Reference Range Interpretation Comme nts TOTAL BILI (test code = 5698079540) 1.0 mg/dL 0.1-1.1 BILI UNCON (test code = 7891831887) 0.4 mg/dL 0.1-1.1 BILI CONJ (test code = 5232821840) 0.0 mg/dL 0.0-0.3 T PROTEIN (test code = 2552012087) 8.5 g/dL 6.3-8.2 H ALBUMIN (test code = 1092779845) 4.9 g/dL 3.5-5.0 ALK PHOS (test code = 8113918731) 87 U/L 34-122 Slight hemolysis ALTv (test code = 1742-6) 77 U/L 5-35 H AST(SGOT) (test code = 8325726755) 57 U/L 13-40 H Slight hemolysis Lab Interpretation (test code = 04558-9) Abnormal [facility] CHEST 2 [id number] 18:19:37ORDERING PROVIDER: ?COLIN MONGERICAL HISTORY: Hematemesis TECHNIQUE: Frontal and lateral views of the Chest. [facility] 2 [id number] 18:19:37ORDERING PROVIDER: ?COLIN MONGERICAL HISTORY: Hematemesis TECHNIQUE: Frontal and lateral views of the Chest. COMPARISON: [facility] ABDOMEN [id number] 17:50:15ORDERING PROVIDER: COLIN ELMORE MORRICAL HISTORY: N/v/diarrhea [...] lesions. ?There is normal corticalthickness, contour and echogenicity.[facility] ABDOMEN RTHGAHS8464-53-07 17:50:15ORDERING PROVIDER: COLIN MONGERICAL HISTORY: N/v/diarrhea worsening [...] lesions. ?There is normal corticalthickness, contour and echogenicity.[facility] [id number] 15:52:12* Test Item Value Reference Range Interpretation Comme nts TROPONIN I (test code = 1623830204) 0.006 ng/mL <=0.034 WESLEY (test code = [...] of biotin. Lab Interpretation (test code = 13552-4) Normal [facility] [id number] 15:52:12* Test Item Value Reference Range Interpretation Comme nts TROPONIN I (test code = 6790492052) 0.006 ng/mL <=0.034 WESLEY (test code = [...] of biotin. Lab Interpretation (test code = 15681-0) Normal [facility] CenterPREGNANCY TEST, [id number] 15:52:07* Test Item Value Reference Range Interpretation Comme nts PREG SERUM (test code = 7171822321) Negative WESLEY (test code = WESLEY) Less than 10 IU/L. ?If low titer or ectopic is suspected, resubmit specimen in 48-72 hours. [facility] CenterPREGNANCY TEST, [id number] 15:52:07* Test Item Value Reference Range Interpretation Comme nts PREG SERUM (test code = 5489901900) Negative WESLEY (test code = WESLEY) Less than 10 IU/L. ?If low titer or ectopic is suspected, resubmit specimen in 48-72 hours. [facility] CenterLIPASE2024-10-12 15:40:04* Test Item Value Reference Range Interpretation Comme [facility] LIPASE (test code = 7620002853) 69 U/L 0-220 Lab Interpretation (test cod e = 94833-9) Normal [facility] CenterLIPASE2024-10-12 15:40:04* Test Item Value Reference Range Interpretation Comme nts LIPASE (test code = 8508858698) 69 U/L 0-220 Lab Interpretation (test cod e = 24595-9) Normal [facility]. METABOLIC PANEL (31501)2024-02-22 15:40:03* Test Item Value Reference Range Interpretation Comme nts NA (test code = 1569401481) 137 mmol/L 135-145 K (test code = 6465658744) 3.9 mmol/L 3.5-5.0 Slight hemolysis CL (test code = 2971663835) 102 mmol/L 98-108 CO2 TOTAL (test code = 6959137875) 24 mmol/L 23-31 AGAP (test code = 9513069044) 11 2-16 BUN (test code = 8848421156) 9 mg/dL 7-23 Slight hemolysis GLUCOSE (test code = 0915256511) 94 mg/dL 70-110 CREATININE (test code = 2160-0) 0.70 mg/dL 0.50-1.04 TOTAL BILI (test code = 3807795988) 1.0 mg/dL 0.1-1.1 CALCIUM (test code = 7785213808) 9.3 mg/dL 8.6-10.6 T PROTEIN (test code = 6245846562) 8.4 g/dL 6.3-8.2 H ALBUMIN (test code = 8731608476) 5.0 g/dL 3.5-5.0 ALK PHOS (test code = 7324981443) 79 U/L 34-122 Slight hemolysis ALTv (test code = 1742-6) 74 U/L 5-35 H AST(SGOT) (test code = 5601472977) 57 U/L 13-40 H Slight hemolysis eGFR (test code = 99432-1) 120.2 mL/min/1.73m2 CKD-EPI eGFR (2020). Assuming creatinine has been stable day-to-day for at least three months, the eGFR indicates Category G1 (>= 90 mL/min/1.73 m2) Lab Interpretation (test code = 34315-3) Abnormal [facility]. METABOLIC PANEL (19636)2024-02-22 15:40:03* Test Item Value Reference Range Interpretation Comme nts NA (test code = 8928081208) 137 mmol/L 135-145 K (test code = 2979973678) 3.9 mmol/L 3.5-5.0 Slight hemolysis CL (test code = 1345163352) 102 mmol/L 98-108 CO2 TOTAL (test code = 9044912767) 24 mmol/L 23-31 AGAP (test code = 5412223964) 11 2-16 BUN (test code = 7095385450) 9 mg/dL 7-23 Slight hemolysis GLUCOSE (test code = 1258557108) 94 mg/dL 70-110 CREATININE (test code = 2160-0) 0.70 mg/dL 0.50-1.04 TOTAL BILI (test code = 2056737137) 1.0 mg/dL 0.1-1.1 CALCIUM (test code = 4256639677) 9.3 mg/dL 8.6-10.6 T PROTEIN (test code = 6574898638) 8.4 g/dL 6.3-8.2 H ALBUMIN (test code = 0487874148) 5.0 g/dL 3.5-5.0 ALK PHOS (test code = 7948268654) 79 U/L 34-122 Slight hemolysis ALTv (test code = 1742-6) 74 U/L 5-35 H AST(SGOT) (test code = 2433496414) 57 U/L 13-40 H Slight hemolysis eGFR (test code = 73873-8) 120.2 mL/min/1.73m2 CKD-EPI eGFR (2020). Assuming creatinine has been stable day-to-day for at least three months, the eGFR indicates Category G1 (>= 90 mL/min/1.73 m2) Lab Interpretation (test code = 34508-1) Abnormal [facility] WITH [id number] 15:35:41* Test Item Value Reference Range Interpretation [...] 34.3 g/dL 31.6-35.1 RDW-SD (test code = 70528-0) 41.3 fL 39.0-49.9 RDW-CV (test code = 788-0) 13.2 % 12.0-15.5 PLT (test code = 777-3) 329 166-358 MPV (test code = 53310-7) 9.9 fL 9.5-12.9 NRBC/100 WBC (test code = 4418819148) 0.0 0.0-10.0 NRBC x10^3 (test code = 2649295745) See_Comment [Automated messa ge] The system which generated this result transmitted reference range: 10*3/?L. The reference range was not used to interpret this result as normal/abnormal. GRAN MAT (NEUT) % (test code = 770-8) 66.5 % IMM GRAN % (test code = 5185419636) 0.30 % LYMPH % (test code = 736-9) 26.8 % MONO % (test code = 5905-5) 3.5 % EOS % (test code = 713-8) 2.3 % BASO % (test code = 706-2) 0.6 % GRAN MAT x10^3(ANC) (test code = 7304296062) 5.71 10*3/uL 1.88-7.09 IMM GRAN x10^3 (test code = 6758952273) 0.03 10*3/uL 0.00-0.06 LYMPH x10^3 (test code = 731-0) 2.30 10*3/uL 1.32-3.29 MONO x10^3 (test code = 742-7) 0.30 10*3/uL 0.33-0.92 L EOS x10^3 (test code = 711-2) 0.20 10*3/uL 0.03-0.39 BASO x10^3 (test code = 704-7) 0.05 10*3/uL 0.01-0.07 Lab Interpretation (test code = 11772-1) Abnormal [facility] WITH [id number] 15:35:41* Test Item Value Reference Range Interpretation [...] 34.3 g/dL 31.6-35.1 RDW-SD (test code = 46626-5) 41.3 fL 39.0-49.9 RDW-CV (test code = 788-0) 13.2 % 12.0-15.5 PLT (test code = 777-3) 329 166-358 MPV (test code = 66450-5) 9.9 fL 9.5-12.9 NRBC/100 WBC (test code = 8987245370) 0.0 0.0-10.0 NRBC x10^3 (test code = 6568536296) See_Comment [Automated messa ge] The system which generated this result transmitted reference range: 10*3/?L. The reference range was not used to interpret this result as normal/abnormal. GRAN MAT (NEUT) % (test code = 770-8) 66.5 % IMM GRAN % (test code = 5066846420) 0.30 % LYMPH % (test code = 736-9) 26.8 % MONO % (test code = 5905-5) 3.5 % EOS % (test code = 713-8) 2.3 % BASO % (test code = 706-2) 0.6 % GRAN MAT x10^3(ANC) (test code = 7207082330) 5.71 10*3/uL 1.88-7.09 IMM GRAN x10^3 (test code = 7837809097) 0.03 10*3/uL 0.00-0.06 LYMPH x10^3 (test code = 731-0) 2.30 10*3/uL 1.32-3.29 MONO x10^3 (test code = 742-7) 0.30 10*3/uL 0.33-0.92 L EOS x10^3 (test code = 711-2) 0.20 10*3/uL 0.03-0.39 BASO x10^3 (test code = 704-7) 0.05 10*3/uL 0.01-0.07 Lab Interpretation (test code = 73860-6) [facility] (12600)[facility]23-05-19 17:55:27* Test Item Value Reference Range Interpretation Comme nts NA (test code = 9232549198) 138 mmol/L 135-145 K (test code = 5749356699) 3.8 mmol/L 3.5-5.0 CL (test code = 2544442149) 107 mmol/L 98-108 CO2 TOTAL (test code = 4118098703) 21 mmol/L 23-31 L AGAP (test code = 9135623821) 10 2-16 BUN (test code = 6183940897) 8 mg/dL 7-23 GLUCOSE (test code = 8955118179) 89 mg/dL 70-110 CREATININE (test code = 5412342625) 0.69 mg/dL 0.50-1.04 TOTAL BILI (test code = 8209234517) 0.7 mg/dL 0.1-1.1 CALCIUM (test code = 2935500207) 8.3 mg/dL 8.6-10.6 L T PROTEIN (test code = 9211460122) 7.3 g/dL 6.3-8.2 ALBUMIN (test code = 5049425240) 4.1 g/dL 3.5-5.0 ALK PHOS (test code = 5423625526) 107 U/L 34-122 ALTv (test code = 1742-6) 75 U/L 5-35 H AST(SGOT) (test code = 5846410316) 42 U/L 13-40 H eGFR (test code = 76834-4) 121.4 mL/min/1.73m2 CKD-EPI eGFR (2020). Assuming creatinine has been stable day-to-day for at least three months, the eGFR indicates Category G1 (>= 90 mL/min/1.73 m2) Lab Interpretation (test code = 14980-4) [facility] 16[facility]39:24* Test Item Value Reference Range Interpretation Comme nts LIPASE (test code = 9185316094) 40 U/L 0-220 Lab Interpretation (test cod e = 76403-9) [facility] [id number] 16:27:28EXAM: CT ABDOMEN PELVIS W CONTRAST HISTORY: [...] hypodensity isseen within the right gluteal soft tissue.[facility] CBC WITH [id number] 16:14:18* Test Item Value Reference Range Interpretation Comme nts WBC (test code = 6690-2) 6.32 See_Comment [[employer] ([place])] The system which generated this result transmitted reference range: 4.30 - 11.10 10*3/?L. The reference range was not used to interpret this result as normal/abnormal. RBC (test code = 789-8) 4.61 See_Comment [[employer] ([place])] The system which generated this result transmitted [...] 34.1 g/dL 31.6-35.1 RDW-SD (test code = 76803-4) 42.0 fL 39.0-49.9 RDW-CV (test code = 788-0) 13.0 % 12.0-15.5 PLT (test code = 777-3) 369 See_Comment H [Automated SMASHsolara ge] The system which generated this result transmitted reference range: 166 - 358 10*3/?L. The reference range was not used to interpret this result as normal/abnormal. MPV (test code = 14552-6) 9.9 fL 9.5-12.9 NRBC/100 WBC (test code = 0964562209) 0.0 See_Comment [Automated [employer] ssage] The system which generated this result transmitted reference range: 0.0 - 10.0 /100 WBCs. The reference range was not used to interpret this result as normal/abnormal. NRBC x10^3 (test code = 6870836660) See_Comment [Automated SMASHsolara ge] The system which generated this result transmitted reference range: 10*3/?L. The reference range was not used to interpret this result as normal/abnormal. GRAN MAT (NEUT) % (test code = 770-8) 64.8 % IMM GRAN % (test code = 7613853887) 0.50 % LYMPH % (test code = 736-9) 25.3 % MONO % (test code = 5905-5) 4.1 % EOS % (test code = 713-8) 4.7 % BASO % (test code = 706-2) 0.6 % GRAN MAT x10^3(ANC) (test code = 1590360382) 4.09 10*3/uL 1.88-7.09 IMM GRAN x10^3 (test code = 2263356355) 0.03 10*3/uL 0.00-0.06 LYMPH x10^3 (test code = 731-0) 1.60 10*3/uL 1.32-3.29 MONO x10^3 (test code = 742-7) 0.26 10*3/uL 0.33-0.92 L EOS x10^3 (test code = 711-2) 0.30 10*3/uL 0.03-0.39 BASO x10^3 (test code = 704-7) 0.04 10*3/uL 0.01-0.07 Lab Interpretation (test code = 79363-7) [facility] [id number] 15:31:00* Test Item Value Reference Range Interpretation Comme nts POCT PREG (test code = 1605) Negative On board controls acceptable with C Line (test code = 3574) Yes POCT PREG LOT # (test code = 3575) [id number] POCT PREG TEST DATE ( test code = 3576) 2024-07-21 Lab Interpretation (test cod e = 93637-8) Normal [facility] WITH [id number] 04:28:47* Test Item Value Reference Range Interpretation [...] 34.0 g/dL 31.6-35.1 RDW-SD (test code = 75911-4) 40.3 fL 39.0-49.9 RDW-CV (test code = 788-0) 13.1 % 12.0-15.5 PLT (test code = 777-3) 307 See_Comment [Automated messa ge] The system which generated this result transmitted reference range: 166 - 358 10*3/?L. The reference range was not used to interpret this result as normal/abnormal. MPV (test code = 79826-4) 11.0 fL 9.5-12.9 NRBC/100 WBC (test code = 6754053262) 0.0 See_Comment [Automated me ssage] The system which generated this result transmitted reference range: 0.0 - 10.0 /100 WBCs. The reference range was not used to interpret this result as normal/abnormal. NRBC x10^3 (test code = 0593960612) See_Comment [Automated messa ge] The system which generated this result transmitted reference range: 10*3/?L. The reference range was not used to interpret this result as normal/abnormal. GRAN MAT (NEUT) % (test code = 770-8) 52.0 % IMM GRAN % (test code = 9991944282) 0.20 % LYMPH % (test code = 736-9) 38.0 % MONO % (test code = 5905-5) 4.6 % EOS % (test code = 713-8) 4.6 % BASO % (test code = 706-2) 0.6 % GRAN MAT x10^3(ANC) (test code = 4036601866) 2.84 10*3/uL 1.88-7.09 IMM GRAN x10^3 (test code = 3162824565) 0.00-0.06 LYMPH x10^3 (test code = 731-0) 2.07 10*3/uL 1.32-3.29 MONO x10^3 (test code = 742-7) 0.25 10*3/uL 0.33-0.92 L EOS x10^3 (test code = 711-2) 0.25 10*3/uL 0.03-0.39 BASO x10^3 (test code = 704-7) 0.03 10*3/uL 0.01-0.07 Lab Interpretation (test code = 36876-9) Abnormal [facility]. METABOLIC PANEL (98434)2023-01-12 04:12:43* Test Item Value Reference Range Interpretation Comme nts NA (test code = 6604417118) 137 mmol/L 135-145 K (test code = 6451621103) 3.4 mmol/L 3.5-5.0 L CL (test code = 8441484740) 104 mmol/L 98-108 CO2 TOTAL (test code = 5497185046) 24 mmol/L 23-31 AGAP (test code = 1515192797) 9 2-16 BUN (test code = 7407793309) 2 mg/dL 7-23 L GLUCOSE (test code = 7850578968) 92 mg/dL 70-110 CREATININE (test code = 3970517889) 0.80 mg/dL 0.50-1.04 TOTAL BILI (test code = 4887777790) 0.4 mg/dL 0.1-1.1 CALCIUM (test code = 5170412969) 8.4 mg/dL 8.6-10.6 L T PROTEIN (test code = 8496273256) 6.3 g/dL 6.3-8.2 ALBUMIN (test code = 6770850579) 3.7 g/dL 3.5-5.0 ALK PHOS (test code = 4004592415) 87 U/L 34-122 ALTv (test code = 1742-6) 27 U/L 5-35 AST(SGOT) (test code = 8937946065) 33 U/L 13-40 eGFR (test code = 8697018562) 86.0 mL/min/1.73m2 WESLEY (test code = WESLEY) [...] imaging tests). Lab Interpretation (test code = 33213-2) Abnormal [facility]. METABOLIC PANEL (93226)2023-01-12 04:12:43* Test Item Value Reference Range Interpretation Comme nts NA (test code = 9844182314) 137 mmol/L 135-145 K (test code = 5163383304) 3.4 mmol/L 3.5-5.0 L CL (test code = 3396739735) 104 mmol/L 98-108 CO2 TOTAL (test code = 6142866223) 24 mmol/L 23-31 AGAP (test code = 5474968933) 9 2-16 BUN (test code = 1532781759) 2 mg/dL 7-23 L GLUCOSE (test code = 0368776545) 92 mg/dL 70-110 CREATININE (test code = 0216290572) 0.80 mg/dL 0.50-1.04 TOTAL BILI (test code = 7188699274) 0.4 mg/dL 0.1-1.1 CALCIUM (test code = 8111920095) 8.4 mg/dL 8.6-10.6 L T PROTEIN (test code = 6385490769) 6.3 g/dL 6.3-8.2 ALBUMIN (test code = 2207263119) 3.7 g/dL 3.5-5.0 ALK PHOS (test code = 8158227667) 87 U/L 34-122 ALTv (test code = 1742-6) 27 U/L 5-35 AST(SGOT) (test code = 7457570161) 33 U/L 13-40 eGFR (test code = 9978498582) 86.0 mL/min/1.73m2 WESLEY (test code = WESLEY) [...] imaging tests). Lab Interpretation (test code = 94156-6) [facility]:07:04 BETA HCG<2.39Non- female and male patients: <5 mIU/mL01/11/2023 11:07 PM [facility] Gestational Age ?Range (mIU/mL) 1-10 ?Weeks ?82-97695125-30 Weeks ?83945-42775225-86 Weeks ?3230-15021123-49 Weeks ?0526-803158 Biotin has been reported to cause a negative bias, interpret results relative to patient's use of biotin. Gestational Age ?Range (mIU/mL) 1-10 ?Weeks ?62-36526988-73 Weeks ?44943-83161932-14 Weeks ?4546-96927937-42 Weeks?1531-972609 Biotin has been reported to cause a negative bias, interpret results relative to patient's use of biotin. Gestational Age ?Range (mIU/mL) 1-10 ?Weeks ?53-33985210-67 Weeks ?03462-30621118-97 Weeks ?8588-41146542-23 Weeks ?1531-703638 Biotin has been reported to cause a negative bias, interpretresults relative to patient's use of biotin.[facility] 04:07:04BETA HCG<2.39Non- female and male patients: <5 mIU/mL01/11/2023 11:07 PM [facility] Gestational Age ?Range (mIU/mL) 1-10 ?Weeks ?37-81885591-82 Weeks ?39674-50703186-93 Weeks ?1636-82667641-12 Weeks ?1531-272975 Biotin has been reported to cause a negative bias, interpret results relative topatient's use of biotin. Gestational Age ?Range (mIU/mL) 1-10 ?Weeks ?53-51532382-61 Weeks ?87576-74470303-79 Weeks ?9097-70128038-67 Weeks?1531-821580 Biotin has been reported to cause a negative bias, interpret results relative to patient's use of biotin. Gestational Age ?Range (mIU/mL) 1-10 ?Weeks ?32-60214682-05 Weeks ?42502-15421189-81 Weeks ?1919-42455546-05 Weeks ?0338-051952 Biotin has been reported to cause a negative bias, interpretresults relative to patient's use of biotin.[facility] 03:22:58* Test Item Value Reference Range Interpretation Comme nts LIPASE (test code = 9667616758) 41 U/L 0-220 Lab Interpretation (test cod e = 64872-3) [facility] 03:22:58* Test Item Value Reference Range Interpretation Comme nts LIPASE (test code = 9915925069) 41 U/L 0-220 Lab Interpretation (test cod e = 34158-0) Normal [facility] [id number] 03:02:00* Test Item Value Reference Range Interpretation Comme nts POCT PREG (test code = 1605) Negative On board controls acceptable with C Line (test code = 3574) Yes POCT PREG LOT # (test code = 3575) [id number] POCT PREG TEST DATE ( test code = 3576) 05/15/2024 Lab Interpretation (test cod e = 92558-0) Normal [facility] [id number] 03:02:00* Test Item Value Reference Range Interpretation Comme nts POCT PREG (test code = 1605) Negative On board controls acceptable with C Line (test code = 3574) Yes POCT PREG LOT # (test code = 3575) [id number] POCT PREG TEST DATE ( test code = 3576) 05/15/2024 Lab Interpretation (test cod e = 25080-6) [facility], [id number] 00:23:34* Test Item Value Reference Range Interpretation Comme nts PREG SERUM (test code = 6435806223) Negative WESLEY (test code = WESLEY) Less than 10 IU/L. ?If low titer or ectopic is suspected, resubmit specimen in 48-72 hours. [facility] METABOLIC PANEL (84998)2022-07-31 23:58:12* Test Item Value Reference Range Interpretation Comme nts NA (test code = 7286959502) 140 mmol/L 135-145 K (test code = 0307829538) 3.6 mmol/L 3.5-5.0 CL (test code = 6982457646) 106 mmol/L 98-108 CO2 TOTAL (test code = 4264983244) 21 mmol/L 23-31 L AGAP (test code = 0449898303) 13 2-16 BUN (test code = 0131525322) 8 mg/dL 7-23 GLUCOSE (test code = 0605539331) 90 mg/dL 70-110 CREATININE (test code = 7416677314) 0.90 mg/dL 0.50-1.04 TOTAL BILI (test code = 0221393705) 0.5 mg/dL 0.1-1.1 CALCIUM (test code = 5213271604) 9.0 mg/dL 8.6-10.6 T PROTEIN (test code = 5861711501) 7.8 g/dL 6.3-8.2 ALBUMIN (test code = 4722652614) 4.6 g/dL 3.5-5.0 ALK PHOS (test code = 0630972855) 63 U/L 34-122 ALTv (test code = 1742-6) 23 U/L 5-35 AST(SGOT) (test code = 9533127866) 27 U/L 13-40 eGFR (test code = 4558705044) 75.1 mL/min/1.73m2 WESLEY (test code = WESLEY) [...] imaging tests). Lab Interpretation (test code = 58576-6) [facility] 23:57:32* Test Item Value Reference Range Interpretation Comme nts LIPASE (test code = 6442540236) 55 U/L 0-220 Lab Interpretation (test cod e = 85847-4) Normal [facility] WITH [id number] 23:47:31* Test Item Value Reference Range Interpretation Comme nts WBC (test code = 6690-2) 5.64 See_Comment [Automated [employer]] The system which generated this result transmitted reference range: 4.30 - 11.10 10*3/?L. The reference range was not used to interpret this result as normal/abnormal. RBC (test code = 789-8) 4.51 See_Comment [[employer] ([place])] The system which generated this result transmitted [...] 32.6 g/dL 31.6-35.1 RDW-SD (test code = 78629-2) 42.5 fL 39.0-49.9 RDW-CV (test code = 788-0) 13.0 % 12.0-15.5 PLT (test code = 777-3) 339 See_Comment [Automated messa ge] The system which generated this result transmitted reference range: 166 - 358 10*3/?L. The reference range was not used to interpret this result as normal/abnormal. MPV (test code = 44251-4) 9.4 fL 9.5-12.9 L NRBC/100 WBC (test code = 3204605720) 0.0 See_Comment [Automated [employer] ssage] The system which generated this result transmitted reference range: 0.0 - 10.0 /100 WBCs. The reference range was not used to interpret this result as normal/abnormal. NRBC x10^3 (test code = 9840504633) See_Comment [Automated SMASHsolara ge] The system which generated this result transmitted reference range: 10*3/?L. The reference range was not used to interpret this result as normal/abnormal. GRAN MAT (NEUT) % (test code = 770-8) 51.2 % IMM GRAN % (test code = 2610842918) 0.20 % LYMPH % (test code = 736-9) 36.5 % MONO % (test code = 5905-5) 5.7 % EOS % (test code = 713-8) 5.9 % BASO % (test code = 706-2) 0.5 % GRAN MAT x10^3(ANC) (test code = 4789867914) 2.89 10*3/uL 1.88-7.09 IMM GRAN x10^3 (test code = 8483895966) 0.00-0.06 LYMPH x10^3 (test code = 731-0) 2.06 10*3/uL 1.32-3.29 MONO x10^3 (test code = 742-7) 0.32 10*3/uL 0.33-0.92 L EOS x10^3 (test code = 711-2) 0.33 10*3/uL 0.03-0.39 BASO x10^3 (test code = 704-7) 0.03 10*3/uL 0.01-0.07 Lab Interpretation (test code = 08520-5) [facility] [id number] 16:14:38* Test Item Value Reference Range Interpretation Comme nts POCT Molecular Strep (test c ode = 89010-9) Negative Negative Lab Interpretation (test cod e = 09875-5) Normal [facility]. METABOLIC PANEL (75388)2022-05-05 19:35:37* Test Item Value Reference Range Interpretation Comme nts NA (test code = 0313022624) 139 mmol/L 135-145 K (test code = 1024117992) 4.4 mmol/L 3.5-5.0 CL (test code = 3713837443) 104 mmol/L 98-108 CO2 TOTAL (test code = 1196008819) 22 mmol/L 23-31 L AGAP (test code = 2988020617) 2-16 BUN (test code = 8463944925) 11 mg/dL 7-23 GLUCOSE (test code = 7053694525) 95 mg/dL 70-110 CREATININE (test code = 8359128749) 0.71 mg/dL 0.50-1.04 TOTAL BILI (test code = 1354067381) 0.4 mg/dL 0.1-1.1 CALCIUM (test code = 9235137949) 9.1 mg/dL 8.6-10.6 T PROTEIN (test code = 8426281491) 7.9 g/dL 6.3-8.2 ALBUMIN (test code = 0740466065) 4.7 g/dL 3.5-5.0 ALK PHOS (test code = 7197184264) 114 U/L 34-122 ALTv (test code = 1742-6) 21 U/L 5-35 AST(SGOT) (test code = 5692378287) 21 U/L 13-40 eGFR (test code = 3420831019) mL/min/1.73m2 WESLEY (test code = WESLEY) Association [...] imaging tests). Lab Interpretation (test code = 79735-7) Abnormal [facility] WITH [id number] 19:25:37* Test Item Value Reference Range Interpretation Comme nts WBC (test code = 6690-2) See_Comment [[employer] ([place])] The system which generated this result transmitted reference range: 4.30 - 11.10 10*3/?L. The reference range was not used to interpret this result as normal/abnormal. RBC (test code = 789-8) See_Comment [[employer] ([place])] The system which generated this result transmitted [...] 32.9 g/dL 31.6-35.1 RDW-SD (test code = 16553-6) 41.7 fL 39.0-49.9 RDW-CV (test code = 788-0) 12.7 % 12.0-15.5 PLT (test code = 777-3) See_Comment H [Automated messa ge] The system which generated this result transmitted reference range: 166 - 358 10*3/?L. The reference range was not used to interpret this result as normal/abnormal. MPV (test code = 71977-2) 8.8 fL 9.5-12.9 L NRBC/100 WBC (test code = 1156587398) See_Comment [Automated [employer] ssage] The system which generated this result transmitted reference range: 0.0 - 10.0 /100 WBCs. The reference range was not used to interpret this result as normal/abnormal. NRBC x10^3 (test code = 3062506622) See_Comment [Automated messa ge] The system which generated this result transmitted reference range: 10*3/?L. The reference range was not used to interpret this result as normal/abnormal. GRAN MAT (NEUT) % (test code = 770-8) 56.1 % IMM GRAN % (test code = 0241578291) 0.40 % LYMPH % (test code = 736-9) 29.9 % MONO % (test code = 5905-5) 5.4 % EOS % (test code = 713-8) 7.8 % BASO % (test code = 706-2) 0.4 % GRAN MAT x10^3(ANC) (test code = 4640262003) 3.75 10*3/uL 1.88-7.09 IMM GRAN x10^3 (test code = 6056188805) 0.03 10*3/uL 0.00-0.06 LYMPH x10^3 (test code = 731-0) 2.00 10*3/uL 1.32-3.29 MONO x10^3 (test code = 742-7) 0.36 10*3/uL 0.33-0.92 EOS x10^3 (test code = 711-2) 0.52 10*3/uL 0.03-0.39 H BASO x10^3 (test code = 704-7) 0.03 10*3/uL 0.01-0.07 Lab Interpretation (test code = 01427-4) [facility] [id number] 19:00:00* Test Item Value Reference Range Interpretation Comme nts POCT PREG (test code = 1605) negative On board controls acceptable with C Line (test code = 3574) present POCT PREG LOT # (test code = 3575) [id number] POCT PREG TEST DATE ( test code = 3576) 08-11-2023 Lab Interpretation (test cod e = 42865-4) [facility] [id number] 15:21:11* Test Item Value Reference Range Interpretation [...] 33.0 g/dL 31.6-35.1 RDW-SD (test code = 48370-8) 42.6 fL 39.0-49.9 RDW-CV (test code = 788-0) 12.9 % 12.0-15.5 PLT (test code = 777-3) See_Comment H [Automated messa ge] The system which generated this result transmitted reference range: 166 - 358 10*3/?L. The reference range was not used to interpret this result as normal/abnormal. MPV (test code = 42989-1) 9.1 fL 9.5-12.9 L NRBC/100 WBC (test code = 7494246725) See_Comment [Automated me ssage] The system which generated this result transmitted reference range: 0.0 - 10.0 /100 WBCs. The reference range was not used to interpret this result as normal/abnormal. NRBC x10^3 (test code = 8970671905) See_Comment [Automated messa ge] The system which generated this result transmitted reference range: 10*3/?L. The reference range was not used to interpret this result as normal/abnormal. GRAN MAT (NEUT) % (test code = 770-8) 56.8 % IMM GRAN % (test code = 1548358913) 0.30 % LYMPH % (test code = 736-9) 29.5 % MONO % (test code = 5905-5) 4.3 % EOS % (test code = 713-8) 8.3 % BASO % (test code = 706-2) 0.8 % GRAN MAT x10^3(ANC) (test code = 5347026300) 3.57 10*3/uL 1.88-7.09 IMM GRAN x10^3 (test code = 6348646683) 0.00-0.06 LYMPH x10^3 (test code = 731-0) 1.85 10*3/uL 1.32-3.29 MONO x10^3 (test code = 742-7) 0.27 10*3/uL 0.33-0.92 L EOS x10^3 (test code = 711-2) 0.52 10*3/uL 0.03-0.39 H BASO x10^3 (test code = 704-7) 0.05 10*3/uL 0.01-0.07 Lab Interpretation (test code = 86073-1) Abnormal [facility]. METABOLIC PANEL (68710)2022-04-26 15:12:13* Test Item Value Reference Range Interpretation Comme nts NA (test code = 6636589953) 141 mmol/L 135-145 K (test code = 5958656396) 3.4 mmol/L 3.5-5.0 L CL (test code = 5740441392) 104 mmol/L 98-108 CO2 TOTAL (test code = 2141872996) 23 mmol/L 23-31 AGAP (test code = 3653909364) 2-16 BUN (test code = 1940456897) 9 mg/dL 7-23 GLUCOSE (test code = 7525884214) 101 mg/dL 70-110 CREATININE (test code = 0858605401) 0.82 mg/dL 0.50-1.04 TOTAL BILI (test code = 1387327912) 0.7 mg/dL 0.1-1.1 CALCIUM (test code = 2610176763) 9.3 mg/dL 8.6-10.6 T PROTEIN (test code = 5640297193) 8.1 g/dL 6.3-8.2 ALBUMIN (test code = 3823616468) 4.7 g/dL 3.5-5.0 ALK PHOS (test code = 6512622173) 108 U/L 34-122 ALTv (test code = 1742-6) 24 U/L 5-35 AST(SGOT) (test code = 7533261021) 49 U/L 13-40 H eGFR (test code = 4549094140) mL/min/1.73m2 WESLEY (test code = WESLEY) Association [...] imaging tests). Lab Interpretation (test code = 31708-6) Abnormal [facility] [id number] 14:45:00* Test Item Value Reference Range Interpretation Comme nts POCT PREG (test code = 1605) negative On board controls acceptable with C Line (test code = 3574) present POCT PREG LOT # (test code = 3575) [id number] POCT PREG TEST DATE ( test code = 3576) 08/11/2023 Lab Interpretation (test cod e = 02017-8) Normal [facility] [id number] 01:22:00* Test Item Value Reference Range Interpretation Comme nts POCT PREG (test code = 1605) Negative On board controls acceptable with C Line (test code = 3574) Present POCT PREG LOT # (test code = 3575) [id number] POCT PREG TEST DATE ( test code = 3576) 08-11-2023 Lab Interpretation (test cod e = 52313-3) Normal [facility] METABOLIC PANEL (NA, K, CL, CO2, GLUCOSE, BUN, CREATININE, CA)2022-04-07 23:01:10* Test Item Value Reference Range Interpretation Comme [facility] NA (test code = 0391112363) 138 mmol/L 135-145 K (test code = 9689655529) 4.3 mmol/L 3.5-5.0 CL (test code = 5796905185) 107 mmol/L 98-108 CO2 TOTAL (test code = 7239191183) 20 mmol/L 23-31 L AGAP (test code = 5194416984) 2-16 BUN (test code = 2358383966) 9 mg/dL 7-23 GLUCOSE (test code = 9466427517) 204 mg/dL 70-110 H CREATININE (test code = 3757557563) 0.74 mg/dL 0.50-1.04 CALCIUM (test code = 3912252772) 9.1 mg/dL 8.6-10.6 eGFR (test code = 1667238124) mL/min/1.73m2 WESLEY (test code = WESLEY) Association [...] imaging tests). Lab Interpretation (test code = 70047-6) Abnormal [facility] WITH [id number] 22:57:34* Test Item Value Reference Range Interpretation Comme nts WBC (test code = 6690-2) See_Comment [Automated [employer]] The system which generated this result transmitted reference range: 4.30 - 11.10 10*3/?L. The reference range was not used to interpret this result as normal/abnormal. RBC (test code = 789-8) See_Comment [Automated [employer]] The system which generated this result transmitted [...] 33.5 g/dL 31.6-35.1 RDW-SD (test code = 66679-0) 42.9 fL 39.0-49.9 RDW-CV (test code = 788-0) 13.4 % 12.0-15.5 PLT (test code = 777-3) See_Comment H [Automated messa ge] The system which generated this result transmitted reference range: 166 - 358 10*3/?L. The reference range was not used to interpret this result as normal/abnormal. MPV (test code = 62549-5) 8.9 fL 9.5-12.9 L NRBC/100 WBC (test code = 7511820422) See_Comment [Automated [employer] ssage] The system which generated this result transmitted reference range: 0.0 - 10.0 /100 WBCs. The reference range was not used to interpret this result as normal/abnormal. NRBC x10^3 (test code = 7431572764) See_Comment [Automated messa ge] The system which generated this result transmitted reference range: 10*3/?L. The reference range was not used to interpret this result as normal/abnormal. GRAN MAT (NEUT) % (test code = 770-8) 88.7 % IMM GRAN % (test code = 5743046848) 0.70 % LYMPH % (test code = 736-9) 9.4 % MONO % (test code = 5905-5) 0.9 % EOS % (test code = 713-8) 0.1 % BASO % (test code = 706-2) 0.2 % GRAN MAT x10^3(ANC) (test code = 8241793534) 7.81 10*3/uL 1.88-7.09 H IMM GRAN x10^3 (test code = 6899790147) 0.06 10*3/uL 0.00-0.06 LYMPH x10^3 (test code = 731-0) 0.83 10*3/uL 1.32-3.29 L MONO x10^3 (test code = 742-7) 0.08 10*3/uL 0.33-0.92 L EOS x10^3 (test code = 711-2) 0.03-0.39 L BASO x10^3 (test code = 704-7) 0.01-0.07 Lab Interpretation (test code = 86720-0) Abnormal [facility] [id number] 14:07:00* Test Item Value Reference Range Interpretation Comme nts POCT PREG (test code = 1605) negative On board controls acceptable with C Line (test code = 3574) present POCT PREG LOT # (test code = 3575) [id number] POCT PREG TEST DATE ( test code = 3576) 08/11/2023 Lab Interpretation (test cod e = 12640-0) Normal [facility] [id number] 13:52:00* Test Item Value Reference Range Interpretation Comme nts POCT PREG (test code = 1605) negative On board controls acceptable with C Line (test code = 3574) present Lab Interpretation (test cod e = 91427-6) Normal [facility] [id number] 14:59:00* Test Item Value Reference Range Interpretation Comme nts POCT PREG (test code = 1605) negative On board controls acceptable with C Line (test code = 3574) yes POCT PREG LOT # (test code = 3575) [id number] POCT PREG TEST DATE ( test code = 3576) 07/11/2023 Lab Interpretation (test cod e = 97558-9) Normal [facility]. METABOLIC PANEL (37274)2022 17:51:43* Test Item Value Reference Range Interpretation Comme nts NA (test code = 4487715951) 139 mmol/L 135-145 K (test code = 3701632001) 4.1 mmol/L 3.5-5 CL (test code = 0368010491) 104 mmol/L 98-108 CO2 TOTAL (test code = 4737628357) 22 mmol/L 23-31 L AGAP (test code = 6580572719) 2-16 BUN (test code = 6677346196) 7 mg/dL 7-23 GLUCOSE (test code = 4896583623) 114 mg/dL 70-110 H CREATININE (test code = 0982020884) 0.69 mg/dL 0.5-1.04 TOTAL BILI (test code = 5774919135) 0.4 mg/dL 0.1-1.1 CALCIUM (test code = 7765494378) 9.7 mg/dL 8.6-10.6 T PROTEIN (test code = 4332195837) 7.2 g/dL 6.3-8.2 ALBUMIN (test code = 4669090150) 4.6 g/dL 3.5-5 ALK PHOS (test code = 0994390027) 65 U/L 34-122 ALTv (test code = 1742-6) 15 U/L 5-35 AST(SGOT) (test code = 9877934107) 19 U/L 13-40 eGFR (test code = 3795988217) mL/min/1.73m2 WESLEY (test code = WESLEY) Association [...] imaging tests). Lab Interpretation (test code = 79180-8) Abnormal [facility] WITH [id number] 17:40:24* Test Item Value Reference Range Interpretation Comme nts WBC (test code = 6690-2) See_Comment [Automated [employer]] The system which generated this result transmitted reference range: 4.30 - 11.10 10*3/?L. The reference range was not used to interpret this result as normal/abnormal. RBC (test code = 789-8) See_Comment [Automated [employer]] The system which generated this result [...] 33.3 g/dL 31.6-35.1 RDW-SD (test code = 78918-3) 43.1 fL 39-49.9 RDW-CV (test code = 788-0) 13.2 % 12-15.5 PLT (test code = 777-3) See_Comment [Automated [employer] ge] The system which generated this result transmitted reference range: 166 - 358 10*3/?L. The reference range was not used to interpret this result as normal/abnormal. MPV (test code = 86372-9) 9.5 fL 9.5-12.9 NRBC/100 WBC (test code = 2449541110) See_Comment [Automated [employer] ssage] The system which generated this result transmitted reference range: 0.0 - 10.0 /100 WBCs. The reference range was not used to interpret this result as normal/abnormal. NRBC x10^3 (test code = 5638428683) See_Comment [Automated messa ge] The system which generated this result transmitted reference range: 10*3/?L. The reference range was not used to interpret this result as normal/abnormal. GRAN MAT (NEUT) % (test code = 770-8) 57.8 % IMM GRAN % (test code = 0932344977) 0.20 % LYMPH % (test code = 736-9) 30.8 % MONO % (test code = 5905-5) 5.1 % EOS % (test code = 713-8) 5.6 % BASO % (test code = 706-2) 0.5 % GRAN MAT x10^3(ANC) (test code = 9263251746) 3.61 10*3/uL 1.88-7.09 IMM GRAN x10^3 (test code = 8766662207) 0-0.06 LYMPH x10^3 (test code = 731-0) 1.92 10*3/uL 1.32-3.29 MONO x10^3 (test code = 742-7) 0.32 10*3/uL 0.33-0.92 L EOS x10^3 (test code = 711-2) 0.35 10*3/uL 0.03-0.39 BASO x10^3 (test code = 704-7) 0.03 10*3/uL 0.01-0.07 Lab Interpretation (test code = 93445-7) [id number] 17:27:00* Test Item Value Reference Range Interpretation Comme nts POCT PREG (test code = 1605) negative On board controls acceptable with C Line (test code = 3574) present POCT PREG LOT # (test code = 3575) [id number] POCT PREG TEST DATE ( test code = 3576) Lab Interpretation (test cod e = 70671-7) [facility] 12:45:21* Test Item Value Reference Range Interpretation Comme nts LIPASE (test code = 8541091805) 41 U/L 0-220 Lab Interpretation (test cod e = 45566-7) [facility] [id number] 10:57:00* Test Item Value Reference Range Interpretation Comme nts POCT PREG (test code = 1605) Negative On board controls acceptable with C Line (test code = 3574) Present POCT PREG LOT # (test code = 3575) [id number] POCT PREG TEST DATE ( test code = 3576) 03/12/2023 Lab Interpretation (test cod e = 44164-7) Normal [facility] METABOLIC PANEL (NA, K, CL, CO2, GLUCOSE, BUN, CREATININE, CA)2022-01-18 10:56:51* Test Item Value Reference Range Interpretation Comme nts NA (test code = 8656175704) 137 mmol/L 135-145 K (test code = 6084709410) 4.6 mmol/L 3.5-5 Slight hemolysis CL (test code = 1472273365) 108 mmol/L 98-108 CO2 TOTAL (test code = 6714270905) 22 mmol/L 23-31 L AGAP (test code = 2506108137) 2-16 BUN (test code = 9856641794) 11 mg/dL 7-23 Slight hemolysis GLUCOSE (test code = 8679414813) 83 mg/dL 70-110 CREATININE (test code = 0717514627) 0.68 mg/dL 0.5-1.04 CALCIUM (test code = 1039787543) 8.8 mg/dL 8.6-10.6 eGFR (test code = 3634154949) mL/min/1.73m2 WESLEY (test code = WESLEY) Association [...] imaging tests). Lab Interpretation (test code = 46628-5) [facility]46833[facility] (ALB,T.PRO,BILI T,BU/BC,ALT,AST,ALK PHOS)2022-01-18 10:56:51* Test Item Value Reference Range Interpretation Comme nts TOTAL BILI (test code = 7874895778) 0.6 mg/dL 0.1-1.1 BILI UNCON (test code = 6742246354) 0.1 mg/dL 0.1-1.1 BILI CONJ (test code = 0105120995) 0.0 mg/dL 0-0.3 T PROTEIN (test code = 1281276853) 8.6 g/dL 6.3-8.2 H ALBUMIN (test code = 2676486471) 5.1 g/dL 3.5-5 H ALK PHOS (test code = 2281486637) 79 U/L 34-122 ALTv (test code = 1742-6) 117 U/L 5-35 H AST(SGOT) (test code = 8254428893) 163 U/L 13-40 H Lab Interpretation (test cod e = 23235-7) [facility]normal [facility], [id number] 10:54:25* Test Item Value Reference Range Interpretation Comme nts PREG SERUM (test code = 7432248969) Negative WESLEY (test code = WESLEY) Less than 10 IU/L. ?If low titer or ectopic is suspected, resubmit specimen in 48-72 hours. [facility] WITH [id number] 10:40:49* Test Item Value Reference Range Interpretation [...] 33.6 g/dL 31.6-35.1 RDW-SD (test code = 56287-9) 45.3 fL 39-49.9 RDW-CV (test code = 788-0) 14.5 % 12-15.5 PLT (test code = 777-3) See_Comment [Automated messa ge] The system which generated this result transmitted reference range: 166 - 358 10*3/?L. The reference range was not used to interpret this result as normal/abnormal. MPV (test code = 98471-3) 9.5 fL 9.5-12.9 NRBC/100 WBC (test code = 1024575871) See_Comment [Automated me ssage] The system which generated this result transmitted reference range: 0.0 - 10.0 /100 WBCs. The reference range was not used to interpret this result as normal/abnormal. NRBC x10^3 (test code = 9283975618) See_Comment [Automated messa ge] The system which generated this result transmitted reference range: 10*3/?L. The reference range was not used to interpret this result as normal/abnormal. GRAN MAT (NEUT) % (test code = 770-8) 47.6 % IMM GRAN % (test code = 8413065575) 0.60 % LYMPH % (test code = 736-9) 39.9 % MONO % (test code = 5905-5) 5.9 % EOS % (test code = 713-8) 5.3 % BASO % (test code = 706-2) 0.7 % GRAN MAT x10^3(ANC) (test code = 7315778523) 4.45 10*3/uL 1.88-7.09 IMM GRAN x10^3 (test code = 0958781728) 0.06 10*3/uL 0-0.06 LYMPH x10^3 (test code = 731-0) 3.74 10*3/uL 1.32-3.29 H MONO x10^3 (test code = 742-7) 0.55 10*3/uL 0.33-0.92 EOS x10^3 (test code = 711-2) 0.50 10*3/uL 0.03-0.39 H BASO x10^3 (test code = 704-7) 0.07 10*3/uL 0.01-0.07 Lab Interpretation (test code = 74644-1) Abnormal [facility] [id number] 18:31:00* Test Item Value Reference Range Interpretation Comme nts POCT PREG (test code = 1605) Negative On board controls acceptable with C Line (test code = 3574) Yes POCT PREG LOT # (test code = 3575) POCT PREG TEST DATE ( test code = 3576) [facility] URINALYSIS W/O SPECIFIC [id number] 18:31:00* Test Item Value Reference Range Interpretation [...] = 3257) Trace Negative - Negati ve [facility] Consult Notes Date/Time Note Provider [...] Nausea and Vomiting History of Present Illness Natanael Dyson is a 29 year old /White [...] N/A 07/21/2019 Surgeon: Prasanna Vargas MD; Location: [facility] Labor and Delivery OR Location ESOPHAGOGASTRODUODENOSCOPY Upper 02/27/2024 Surgeon: Jas Mensah MD; Location: ENDOSCOPY (CS) OR LOCATION FLEXIBLE SIGMOIDOSCOPY (SHX) N/A 02/27/2024 Surgeon: Jas Mensah MD; Location: ENDOSCOPY (CS) OR LOCATION TUBAL LIGATION N/A 07/21/2019 Surgeon: Prasanna Vargas MD; Location: [facility] Labor and Delivery OR Location [...] FOCAL NON-SPECIFIC ACUTE INFLAMMATION ASSESSMENT and PLAN Natanael Dyson is a 29 year old female [...] I agree with resident's note as written. [facility] 2024-02-26 10:25:08 Associated Order(s): CONSULT GASTROENTEROLOGY [...] N/A 07/21/2019 Surgeon: Prasanna Vargas MD; Location: [facility] Labor and Delivery OR Location TUBAL LIGATION N/A 07/21/2019 Surgeon: Prasanna Vargas MD; Location: [facility] Labor and Delivery OR Location [...] mL IV Infusion CONTINUOUS 125 mL/hr at 02/26/24424 1,000 mL at 02/26/24424 LORazepam (ATIVAN) injection 0.5 mg 0.5 mg [...] Friends and Family: Not on file Attends Temple Services: Not on file Active Member of [...] History of cholecystectomy Elevated transaminases, improving Hyperbilirubinemia Natanael Dyson is a 29 year old female [...] and Hepatology | PGY-4 Associated attestation - Jas Mensah MD - 02/26/2024 9:01 PM CDT [...] disease. Plan EGD and flexible sigmoidoscopy tomorrow. JAS MENSAH MD MANAGER TRUCK, DIVISION OF GASTROENTEROLOGY AND HEPATOLOGY [facility]. [facility] 2023-01-12 00:12:43 Associated Order(s): CONSULT GENERAL SURGERY TRAUMA/ACS Surgery Consult Note Attending: Ursula Reason for Consult: gallbladder fossa fluid collection s/p lap pasquale History of Present Illness: Natanael Dyson is a 27 year old female, with past medical history of nephrolithiasis, migraines, anxiety now presenting for surgical evaluation of RUQ pain associated with a 4.6 x 2.6 x 2.5cm gallbladder fossa fluid collection s/p elective lap pasquale for symptomatic cholelithiasis 1.5 months ago at OSH ([place]). Pt states that she has had persistent RUQ pain with nausea and po intolerance along with intermittent chills and vomiting since surgery. Was seen by PCP and instructed to come to [facility] ED for further evaluation. Review of Systems: [...] N/A 07/21/2019 Surgeon: Prasanna Vargas MD; Location: [facility] Labor and Delivery OR Location TUBAL LIGATION N/A 07/21/2019 Surgeon: Prasanna Vargas MD; Location: [facility] Labor and Delivery OR Location [...] skin once every month. 1 mL 3 Jcgfihvadb-Mfqnrkvqablkf-Dpsm (FIORICET) 50-300-40 mg per capsule Take 1 [...] W CONTRAST Result Date: 01/11/2023 ORDERING CLINICIAN: MIGUEL ÁNGEL SIDDIQUI TECHNIQUE: Multidetector helical [...] Trouble in sleeping 09/06/2020 Tachycardia 04/12/2020 Assessment: Natanael Dyson is a 27 year old female, with past medical history of nephrolithiasis, migraines, anxiety now presenting for surgical evaluation of RUQ pain associated with a 4.6 x 2.6 x 2.5cm gallbladder fossa fluid collection c/w abscess s/p elective lap pasquale for symptomatic cholelithiasis 1.5 months ago at OS ([place]). Plan: Admission to [facility] service Consult IR for [...] anorexia since lap pasquale at [facility] on 12/01/22 with noted venous bleeding [...] - Replete hypokalemia Mirella Vergara MD, PhD Disposition Clerk Trauma, Acute Care Surgery, and Surgical Critical Care In-house Pager: [phone] [facility] - Health History and Physical Notes Date/Time Note Provider Source 2024-03-10 20:49:23 Greg History & Physical PCP: PATIENT DOES NOT HAVE A PCP Date of Service: 03/10/2024 CHIEF COMPLAINT: Chief Complaint Patient presents with Vomiting HISTORY OF PRESENT ILLNESS Natanael Dyson is a 29 year old female [...] migraine. She was taken to ED in [place] after syncopal episode and was directed to return to [facility]. Bloody BM 3-4 days ago. Reports had exam for internal and external hemorrhoids in [place] - no hemorrhoids. Tried bentyl, pepcid, famotidine without success. Oral zofran does not help either. States that zofran, phenergan, tigan has not helped completely. Morphine has made it tolerable. Requesting to have IV benadryl to help her headaches. Patient was recently discharged on 03/05 from [facility] team, during this admission patient presented with [...] Oral, DAILY REVIEW OF SYSTEMS As per [facility] PHYSICAL EXAMINATION Vitals: 03/10/24 1400 03/10/24 1500 [...] edema LABS/IMAGING: reviewed CHART REVIEW: reviewed ASSESSMENT/PLAN Natanael Dyson is a 29 year old female [...] to continue supportive care - Admit to [facility] - IV PPI BID - monitor for bloody BM, trend H&H - zofran 4 mg q6hprn - orthostatic vitals, telemetry, EKG - start mIVF - restart bismuth quadruple therapy once patient able to tolerate PO intake DISCHARGE PLANNING: - GI f/u outpatient regarding blood in stool Prophylaxis: DVT- Contraindicated: Cranial/GI Bleeding or other Hemorrhage present Code Status: Code Status: Prior Meryl Koleti, MD Department of Internal Medicine, PGY3 Associated attestation - Ba Manuel DO - 03/11/2024 4:20 AM CDT I personally examined the patient on the date of service and agree with Dr. Tang's resident note as written. I actively participated in the decision-making process. Please see the resident's note for additional details. -Of note, patient had been admitted twice to [facility] earlier this month for similar symptoms. However, [facility] was capped at the time of admission. Ba Manuel DO Disposition Clerk | Department of Internal Medicine INTERNAL MEDICINE [facility] 2024-03-04 13:22:03 [facility] MED[facility] ADMIT H&P PCP: PATIENT DOES NOT HAVE A PCP Date of Service: 03/04/2024 CHIEF COMPLAINT: N/V/diarrhea HISTORY OF PRESENT ILLNESS Natanael Dyson is a 29 yo female with a past medical history of breast cancer (s/p chemoradiation: doxorubicin 2 years ago), bipolar disorder, migraines, HTN, who presents with poor PO intake 2/2 to nausea, vomiting with hematemesis and abdominal pain, as well as diarrhea. Patient was recently admitted to [facility] from 02/21-02/26 for same presentation. Inpatient EGD revealed esophagitis and gastritis with biopsies positive for H. Pylori, bismuth quadruple therapy and PPI BID called in yesterday per GI but patient unable to hand picker Patient reports since discharge, her symptoms have not improved. She states that she requested to be discharged after her son got Kawasaki's and she was able to tolerate her pain. Yesterday, she went to hand picker the bismuth quadruple therapy but the pharmacy [...] reports going to her local ED in [place] 2 days ago. She reports getting a [...] Per chart review, patient was admitted to [facility] in January 2023 1.5 month after lpa choley for a gallbladder fossa 2.5 x 2.6 x 4.6 cm fluid collection containing small air foci concerning for abscess. Patient underwent IR guided drainage. Since then patient reports multiple visits to [place] ED for similar symptoms. She reports 40 [...] N/A 07/21/2019 Surgeon: Prasanna Vargas MD; Location: [facility] Labor and Delivery OR Location ESOPHAGOGASTRODUODENOSCOPY Upper 02/27/2024 Surgeon: Jas Mensah MD; Location: ENDOSCOPY (CS) OR LOCATION FLEXIBLE SIGMOIDOSCOPY (SHX) N/A 02/27/2024 Surgeon: Jas Mensah MD; Location: ENDOSCOPY (CS) OR LOCATION TUBAL LIGATION N/A 07/21/2019 Surgeon: Prasanna Vargas MD; Location: [facility] Labor and Delivery OR Location [...] pBNP: - Trop I: - OSH records [place], [place] Operative Note 12/01/22 - venous bleeding from GB bed, Quentin (absorbable hemostat powder) and Surgicel placed Author Edgar [facility] December 01, 2022 11:26am Note Date/Time December 01, 2022 11:26am [facility] NAME: NATANAEL DYSON ADMITTING: Edgar Lora MD ADMIT DATE:12/01/22 ATTENDING: Edgar Lora MD : 1995 ACCOUNT NO:[id number] PATIENT TYPE:ADM IN LOCATION: [facility] Report Status: Signed Date of Procedure: 12/01/22 Surgeon: Edgar Lora MD Date of Service: 12/01/22 Preop diagnosis: Acute cholecystitis and cholelithiasis Postop diagnosis: Same Procedure performed: Laparoscopic cholecystectomy Surgeon: Edgar Lora MD Offshore Diver: Jessica CROOKS Estimated blood loss: Minimal Specimen: [...] MUCOSA WITH FOCAL NON-SPECIFIC ACUTE INFLAMMATION ASSESSMENT/PLAN Natanael Dyson is a 29 year old female [...] overnight for observation. - Admit to [facility] for observation - PPI IV BID [...] details. Jose Naik MD, MPH Internal Medicine [facility] 2024-02-26 20:55:24 Endoscopy H & P [...] 02/26/24 1746 [START ON 02/27/2024] sodium phosphates (PCTVF-QU-QNC ENEMA) 19-7 gram/118 mL enema 1 Enema [...] Units Subcutaneous Q12H 5,000 Units at 02/26/24 1957 Allergies Allergen Reactions Nsaids (Non-Steroidal Anti-Inflammatory Drug) [...] sounds present Tenderness: NO Impression and Plan: 29/F PMH cholecystectomy, chronic anemia, prior breast cancer [...] complete the procedure, cardiovascular complications such as TX, stroke, arrhythmia, and . Informed consent obtained. Giselle Vance MD PGY-5, Gastroenterology and Hepatology Associated attestation - Jas Mensah MD - 02/27/2024 8:34 AM CDT I have personally seen and examined the patient with Dr. Vance. I agree with assessment and plan. Proceed with EGD and flexible sigmoidoscopy. JAS RODRIGUEZ, MANAGER TRUCK, DIVISION OF GASTROENTEROLOGY AND HEPATOLOGY. [facility]. GASTROENTEROLOGY [facility] 2024-02-22 14:40:02 ELIANA ROSE H&P PCP: PATIENT DOES NOT HAVE A [...] reports going to her local ED in [place] 2 days ago. She reports getting a [...] Per chart review, patient was admitted to [facility] in January 2023 1.5 month after lpa choley for a gallbladder fossa 2.5 x 2.6 x 4.6 cm fluid collection containing small air foci concerning for abscess. Patient underwent IR guided drainage. Since then patient reports multiple visits to [place] ED for similar symptoms. She reports 40 [...] taking: Reported on 02/22/2024) 1 mL 3 Mwolptbghq-Hntleuwozmmtb-Aqmk (FIORICET) 50-300-40 mg per capsule Take 1 [...] 0 SOCIAL HISTORY [place] Tobacco use: none Alcohol [...] No focal deficits OSH records OSH records [place], [place] Operative Note 12/01/22 - venous bleeding from GB bed, Quentin (absorbable hemostat powder) and Surgicel placed Author Edgar Lora [facility] December 01, 2022 11:26am Note Date/Time December 01, 2022 11:26am [facility] NAME: NATANAEL DYSON ADMITTING: Edgar Lora MD ADMIT DATE:12/01/22 ATTENDING: Edgar Lora MD : 1995 ACCOUNT NO:[id number] PATIENT TYPE:ADM IN LOCATION: [facility] Report Status: Signed Date of Procedure: 12/01/22 Surgeon: Edgar Lora MD Date of Service: 12/01/22 Preop diagnosis: Acute cholecystitis and cholelithiasis Postop diagnosis: Same Procedure performed: Laparoscopic cholecystectomy Surgeon: Edgar Lora MD Offshore Diver: Jessica CROOKS Estimated blood loss: Minimal Specimen: [...] renal calculus. Prior cholecystectomy and . ASSESSMENT/PLAN Natanael Dyson is a 29 year old female [...] GI ppx: PPI Code Status: FULL Naty Mensah, Internal Medicine PGY3 [facility] Team Associated attestation [...] see the resident's note for additional details. [facility] 2023-01-12 01:05:04 01/12/23 1:05 AM Please refer to consult note written by Rodolfo Riggins DO on 01/12/23 for complete H&P. Rodolfo Riggins DO PGY-2 Surgery Resident Associated attestation - Mirella Vergara MD - 01/12/2023 1:47 AM CDT Agree [facility]
[2024-06-07] MEDS ORDERED: HYDROCODONE/APAP 7.5/325 MG TAB ONE (09:07)
[2024-06-07 09:22] LABS: Sqamous Epithelial >50 /HPF (None Seen); Urine Bacteria <20 /HPF (<20); Urine Bilirubin NEGATIVE (Negative); Urine Blood 3+ (OVER) (Negative); Urine Clarity Extremely Turbid (Clear); Urine Color Light-Orange (Yellow); Urine Culture Reflex Order NOT NEEDED; Urine Glucose NEGATIVE (Negative); Urine Ketones NEGATIVE (Negative); Urine Microscopic Reflex YN ORDER UMIC; Urine Mucus 4+ /HPF (None Seen); Urine Nitrite NEGATIVE (Negative); Urine Protein 1+ (Negative); Urine RBC 21-50 /HPF (None Seen); Urine Urobilinogen Normal (Normal); Urine WBC 20-50 /HPF (<5); Urine Yeast (Budding) Occasional /HPF (None Seen)
--- NOTE | 2024-06-07 09:31 | EDPHYS ---
Physician Documentation [facility] Name: Natanael Dyson Age: 29 yrs Sex: Female : 1995 Arrival Date: 06/07/2024 Time: 08:37 Bed 13 Private MD: ED Physician Harjit Samson HPI: 06/07 09:08 This 29 yrs old Female presents to ER via Unassigned with complaints of Urinary kb Frequency, Pain With Urination. 09:08 Pt is a 29 year old female who presents for burning with urination, frequency, kb bilateral flank pain and urinating small amounts. Denies fever, nausea, vomiting. . Historical: - Allergies: 09:17 Compazine; db 09:17 Haldol; db 09:17 Iodine; db 09:17 Morphine; db 09:17 NSAIDS NON STEROIDAL ANTI INFLAMMATORY DRUG; db 09:17 Reglan; db 09:17 Toradol; db - PMHx: 09:17 breast cancer; Anxiety; depressive disorder; Kidney stone; nephritis; db - PSHx: 09:17 Cholecystectomy; Ligation of fallopian tube; db - Immunization history:: Adult Immunizations unknown. - Infectious Disease History:: Denies. - Social history:: Smoking status: Patient denies any tobacco usage or history of. ROS: 09:08 Constitutional: As per HPI kb Exam: 09:08 Constitutional: This is a well developed, well nourished patient who is awake, alert, kb and in no acute distress. Head/Face: Normocephalic, atraumatic. ENT: Moist Mucous membranes Cardiovascular: Regular rate Respiratory: Respirations even and unlabored. No increased work of breathing. Talking in full sentences Abdomen/GI: Soft, non-tender. No distention Skin: Warm, dry with normal turgor. Normal color. MS/ Extremity: Pulses equal, no cyanosis. Neurovascular intact. Full, normal range of motion. Neuro: Awake and alert, GCS 15, oriented to person, place, time, and situation. 09:08 Back: CVA tenderness, that is mild, is noted bilaterally, Vital Signs: 09:05 BP 123 / 85; Pulse 108; Resp 16; Temp 97; Pulse Ox 99% ; db 09:51 BP 124 / 86; Pulse 98; Resp 16; Pulse Ox 99% ; db MDM: 08:40 Medical Screening Exam initiated rn 09:11 Data reviewed: vital signs, nurses notes. kb 09:29 Differential diagnosis: UTI, kidney stone. Counseling: I had a detailed discussion with kb the patient and/or guardian regarding the historical points, exam findings, and any diagnostic results supporting the discharge/admit diagnosis, lab results, the need for outpatient follow up, a family practitioner, to return to the emergency department if symptoms worsen or persist or if there are any questions or concerns that arise at home. 06/07 08:40 Order name: Test, Urine; Complete Time: 09:29 rn 06/07 08:40 Order name: Urinalysis w/ reflexes; Complete Time: 09:29 rn Administered Medications: 09:15 Drug: Hydrocodone-Acetaminophen PO (7.5 mg-325 mg) 1 tabs PO once Route: PO; db 09:51 Follow up: Response: No adverse reaction; Pain is decreased db 09:51 Drug: Amoxicillin-Clavulanate PO 875 mg PO once Route: PO; db 09:53 Follow up: Response: No adverse reaction db 09:51 Drug: Phenazopyridine PO 100 mg PO once Route: PO; db 09:54 Follow up: Response: No adverse reaction db Disposition: 10:20 Co-signature as Attending Physician, Harjit Samson MD I reviewed the patient's care rn provided by the Advanced Practice Provider and agree with the diagnosis and treatment plan. Disposition Summary: 06/07/24 09:30 Discharge Ordered Notes: Location: Home kb Condition: Stable kb Diagnosis - UTI/ Urinary tract infection, site not specified kb Followup: kb - With: Emergency Department - When: As needed - Reason: Worsening of condition Followup: kb - With: Private Physician - When: 2 - 3 days - Reason: Recheck today's complaints, Continuance of care, Re-evaluation by your physician Discharge Instructions: - Discharge Summary Sheet kb - Urinary Tract Infection, Adult, [id number]-Ilaw kb Forms: - Medication Reconciliation Form kb - Antibiotic Education kb - Prescription Opioid Use kb - Patient Portal Instructions kb - Leadership Thank You Letter kb Prescriptions: - Augmentin 875-125 mg Oral Tablet - take 1 tablet ORAL route every 12 hours for 10 days; 20 tablet; Refills: 0, kb Product Selection Permitted Signatures: Dispatcher [employer] Bobbi Guzman FNP-C ELADIO-Harjit Oliva MD MD rn Benton, Danielle, RN RN db Corrections: (The following items were deleted from the chart) 08:40 08:40 Test, Urine+UC.LAB.BRZ ordered. EDMS EDMS 08:40 08:40 Urinalysis+U.LAB.BRZ ordered. EDMS EDMS
--- NOTE | 2024-06-07 09:31 | ER ---
Nurse's Notes [facility] Name: Natanael Dyson Age: 29 yrs Sex: Female : 1995 Arrival Date: 06/07/2024 Time: 08:37 Bed 13 Private MD: Diagnosis: UTI/ Urinary tract infection, site not specified Presentation: 06/07 09:05 Chief complaint: Patient states: UTI SYMPTOMS. Coronavirus screen: Client denies travel db out of the [place] in the last 14 days. At this time, the client does not indicate any symptoms associated with coronavirus-19. Ebola Screen: Patient negative for fever greater than or equal to 101.5 degrees Fahrenheit, and additional compatible Ebola Virus Disease symptoms Patient denies exposure to infectious person. Patient denies travel to an Ebola-affected area in the 21 days before illness onset. No symptoms or risks identified at this time. Initial Sepsis Screen: Does the patient meet any 2 criteria? No. Patient's initial sepsis screen is negative. Does the patient have a suspected source of infection? No. Patient's initial sepsis screen is negative. Risk Assessment: Do you want to hurt yourself or someone else? Patient reports no desire to harm self or others. Onset of symptoms was June 07, 2024. 09:05 Method Of Arrival: Ambulatory db 09:05 Acuity: THIERNO 3 db Triage Assessment: 09:17 General: Appears in no apparent distress. comfortable, Behavior is calm, cooperative. db 09:20 Pain: Complains of pain in abdomen. Neuro: Level of Consciousness is awake, alert, db obeys commands, Oriented to person, place, time, situation. Respiratory: Airway is patent Respiratory effort is even, unlabored, Respiratory pattern is regular, symmetrical. Historical: - Allergies: 09:17 Compazine; db 09:17 Haldol; db 09:17 Iodine; db 09:17 Morphine; db 09:17 NSAIDS NON STEROIDAL ANTI INFLAMMATORY DRUG; db 09:17 Reglan; db 09:17 Toradol; db - PMHx: 09:17 breast cancer; Anxiety; depressive disorder; Kidney stone; nephritis; db - PSHx: 09:17 Cholecystectomy; Ligation of fallopian tube; db - Immunization history:: Adult Immunizations unknown. - Infectious Disease History:: Denies. - Social history:: Smoking status: Patient denies any tobacco usage or history of. Screenin:52 [facility] ED Fall Risk Assessment (Adult) History of falling in the last 3 months, db including since admission No falls in past 3 months (0 pts) Confusion or Disorientation No (0 pts) Intoxicated or Sedated No (0 pts) Impaired Gait No (0 pts) Mobility Assist Device Used No (0 pt) Altered Elimination No (0 pt) Score/Fall Risk Level 0 - 2 = Low Risk Oriented to surroundings, Maintained a safe environment. Abuse screen: Denies threats or abuse. Denies injuries from another. Nutritional screening: No deficits noted. Tuberculosis screening: No symptoms or risk factors identified. Assessment: 09:52 Reassessment: Patient appears in no apparent distress at this time. Patient and/or db family updated on plan of care and expected duration. Pain level reassessed. Patient is alert, oriented x 3, equal unlabored respirations, skin warm/dry/pink. General: Appears in no apparent distress. comfortable, Behavior is calm, cooperative. Neuro: Level of Consciousness is awake, alert, obeys commands, Oriented to person, place, time, situation. Respiratory: Airway is patent Respiratory effort is even, unlabored, Respiratory pattern is regular, symmetrical. Vital Signs: 09:05 BP 123 / 85; Pulse 108; Resp 16; Temp 97; Pulse Ox 99% ; db 09:51 BP 124 / 86; Pulse 98; Resp 16; Pulse Ox 99% ; db ED Course: 08:38 Patient arrived in ED. am2 08:39 Harjit Samson MD is Attending Physician. rn 08:56 Bobbi Vang FNP-C is [facility]. kb 09:08 Mercedes Aaron, ROSEY is Primary Nurse. db 09:17 Triage completed. db 09:20 Arm band placed on Patient placed in an exam room. db 09:52 Patient has correct armband on for positive identification. Bed in low position. Call db light in reach. Side rails up X 1. Provided Education on: DISCHARGE AND FOLLOWUP. Pulse ox on. NIBP on. 09:52 No provider procedures requiring assistance completed. Patient did not have IV access db during this emergency room visit. Administered Medications: 09:15 Drug: Hydrocodone-Acetaminophen PO (7.5 mg-325 mg) 1 tabs PO once Route: PO; db 09:51 Follow up: Response: No adverse reaction; Pain is decreased db 09:51 Drug: Amoxicillin-Clavulanate PO 875 mg PO once Route: PO; db 09:53 Follow up: Response: No adverse reaction db 09:51 Drug: Phenazopyridine PO 100 mg PO once Route: PO; db 09:54 Follow up: Response: No adverse reaction db Medication: 09:52 VIS not applicable for this client. db Outcome: 09:30 Discharge ordered by . kb 09:52 Discharged to home ambulatory, db 09:52 Condition: stable 09:52 Discharge instructions given to patient, Instructed on discharge instructions, follow up and referral plans. Prescriptions given X 2, 09:54 Patient left the ED. db Signatures: Bobbi Vang, PANEL INSTRUMENT REPAIRER-C PANEL INSTRUMENT REPAIRER-Ckb Harjit Samson MD MD rn Moreno, Amanda am2 Benton, Danielle RN RN db Corrections: (The following items were deleted from the chart) 09:20 09:17 General: Appears in no apparent distress. comfortable, Behavior is calm, db cooperative, db
[2024-06-07] MEDS ORDERED: PHENAZOPYRIDINE 100MG TAB PO ONE (09:45)
[2024-06-07] MEDS ORDERED: AMOX/K CLAV 875 MG TAB ONE (09:45)
[2024-06-07 09:59] VITALS: TEMP 97; O2SAT 99
[2024-06-07 10:00] VITALS: BP 124/86
== END 2024-06-07 09:54 | disposition home or self-care (01) ==
LOC: ER 08:37
DX: N39.0 Urinary tract infection, site not specified (principal)
CPT/HCPCS: 81001; 81025; 99283

== ENCOUNTER 2024-06-21 06:41 | Emergency (ER) | payer OTHER ==
--- OUTSIDE RECORDS SUMMARY | 2024-06-21 06:56 | XMS REPORT | Continuity of Care Document ---
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 medication s? Yes [facility] methylpredn isolone sod succ (SOLU-MEDRO L) injection 44.375 mg 2023-05 04:15: 00 03-13 05:06 :00 No 1mg/kg 44.375 mg (rounded from 44.5 mg = 1 mg/kg ?44.5 kg), Intravenou s, ONCE, 1 dose, On Sat03/12/24 at 2315, 2 mL [facility] iopamidol (ISOVUE 370-500 mL) injection 80 mL 2023-05 03:16: 00 03-13 03:00 :00 No [id number] 80mL 80 mL, Intravenou s, ONCE, 1 dose, On Sat03/12/24 at 2230, Routine [facility] diphenhydrA MINE (BENADRYL) injection 100 mg 2023-05 03:00: 00 03-13 05:06 :00 No [id number] 100mg 100 mg, Slow IV Push, ONCE, 1 dose, On Sat03/12/24 at 2200, STAT [facility] budesonide (PULMICORT RESPULE) nebulizer solution 1 mg 2023-05 01:00: 00 Yes 1mg 1 mg, Inhalation , BID, First dose on Sat03/12/24 at 2000, Until Discontinu ed, Routine [facility] amitriptyli ne 25 mg tablet 2023-05 00:00: 00 Yes [id number] 25mg Take 1 tablet by mouth at bedtime. [facility] budesonide 0.5 mg/2 mL nebulizer solution 2023-05 00:00: 00 06-06 05:59 :00 No [id number] 1mg Inhale 4 mL in the morning and 4 mL in the evening. Do all this for 84 days. [facility] diphenhydrA MINE 25 mg tablet 2023-05 00:00: 00 03-21 05:59 :00 No [id number] 25mg Take 1 tablet by mouth every 6 (six) hours as needed for Allergies for up to 7 days. [facility] methylPREDN ISolone sod succ (SOLU-MEDRO L (PF)) injection 40 mg 2023-05 23:45: 00 03-13 01:24 :00 No 40mg 40 mg, Intravenou s, ONCE, 1 dose, On Sat03/12/24 at 1845, 1 mL [facility] diphenhydrA MINE (BENADRYL) injection 50 mg 2023-05 23:45: 00 03-13 01:23 :00 No 50mg 50 mg, Intravenou s, ONCE, 1 dose, On Sat03/12/24 at 1845, Routine [facility] methylPREDN ISolone sod succ (SOLU-MEDRO L (PF)) injection 40 mg 2023-05 20:45: 00 03-12 20:53 :00 No 40mg 40 mg, Intravenou s, ONCE, 1 dose, On Sat03/12/24 at 1545, 1 mL [facility] diphenhydrA MINE (BENADRYL) injection 25 mg 2023-05 20:30: 00 03-12 20:58 :00 No 25mg 25 mg, Intravenou s, ONCE, 1 dose, On Sat03/12/24 at 1545, Routine [facility] diphenhydrA MINE (BENADRYL) injection 25 mg 2023-05 16:30: 00 03-12 16:16 :00 No 25mg 25 mg, Intravenou s, ONCE, 1 dose, On Sat03/12/24 at 1130, Routine [facility] diazePAM (VALIUM) injection 2 mg 2023-05 15:45: 00 03-13 13:38 :00 No 2mg 2 mg, Slow IV Push, BID, First dose on Sat03/12/24 at 1045, Until Discontinu ed, Routine [facility] Potassium Bicarb-Citr ic Acid (EFFER-K) effervescen t tablet 40 mEq 2023-05 03:45: 00 03-12 03:18 :00 No 40meq 40 mEq, Oral, ONCE, 1 dose, On Sat03/11/24 at 2245, Routine [facility] amitriptyli ne (ELAVIL) tablet 25 mg 2023-05 02:00: 00 Yes 25mg 25 mg, Oral, QHS, First dose on Sat03/11/24 at 2100, Until Discontinu ed, Routine [facility] budesonide (PULMICORT RESPULE) nebulizer solution 0.25 mg 2023-05 20:30: 00 03-12 15:40 :27 No .25mg 0.25 mg, Inhalation , BID, First dose (after last modificati on) on Sat03/11/24 at 1530, Until Discontinu ed, Routine [facility] morpHINE injection 2 mg 2023-05 18:00: 00 03-11 18:18 :00 No 2mg 2 mg, Slow IV Push, ONCE, 1 dose, On Sat03/11/24 at 1300, Routine [facility] proMETHazin e (PHENERGAN) 12.5 mg in NS 50 mL IV piggyback (CNR) 2023-05 16:08: 36 03-13 06:15 :30 No 12.5mg 12.5 mg, IV Piggyback, at 200 mL/hr Administer over 15 Minutes, Q4HPRN, Starting on Sat03/11/24 at 1108, Until Sat03/13/24 at 0115, [place], Nausea and Vomiting (N/V) [facility] diphenhydrA MINE (BENADRYL) injection 25 mg 2023-05 15:45: 00 03-11 15:14 :00 No 25mg 25 mg, Intravenou s, ONCE, 1 dose, On Sat03/11/24 at 1045, Routine [facility] morphine (2 mg/mL) injection 4 mg 2023-05 13:44: 13 03-11 17:55 :50 No 4mg 4 mg, Slow IV Push, Q4HPRN, Starting on Sat03/11/24 at 0844, Until Sat03/11/24 at 1255, Routine, Pain (scale 7-10) [facility] magnesium sulfate in water 4 gram/50 mL (8 %) IV Piggyback 4 g 2023-05 13:00: 00 03-11 16:09 :00 No 4g 4 g, IV Piggyback, at 25 mL/hr Administer over 120 Minutes, ONCE, 1 dose, On Sat03/11/24 at 0800, Routine [facility] tetracyclin e (ACHROMYCIN ) capsule 500 mg 2023-05 13:00: 00 03-11 16:07 :08 No 500mg 500 mg, Oral, QID, 112 doses, First dose on Sat03/11/24 at 0800, Last dose on Sat04/07/24 at 2000, [place], Reason for Anti-Infec tive: Documented Infection, Documented Infection Site: Abdominal, Duration of Therapy: 14 days [facility] metroNIDAZO LE (FLAGYL) tablet 500 mg 2023-05 13:00: 00 03-11 16:07 :08 No 500mg 500 mg, Oral, QID, First dose on Sat03/11/24 at 0800, Until Discontinu ed, Routine, Reason for Anti-Infec tive: Documented Infection, Documented Infection Site: Abdominal, Duration of Therapy: 14 days [facility] bismuth subsalicyla te (PEPTO BISMOL) chewable tablet 524 mg 2023-05 13:00: 00 03-11 16:07 :08 No 524mg 524 mg, Oral, QID, First dose on Sat03/11/24 at 0800, Until Discontinu ed [facility] lactated ringers IV infusion 1,000 mL 2023-05 08:30: 00 03-11 16:29 :00 No 1000mL at 125 mL/hr, 1,000 mL, IV Infusion, CONTINUOUS , Starting on Sat03/11/24 at 0330, Until Sat03/11/24 at 1129, Routine [facility] trimethoben zamide (TIGAN) injection 100 mg 2023-05 05:12: 20 03-13 16:08 :09 No 100mg 100 mg, Intramuscu lar, Q6HPRN, Starting on Sat03/11/24 at 0012, Until Sat03/13/24 at 1108, Routine, Nausea and Vomiting (N/V), alternate with zofran [facility] ondansetron (ZOFRAN (PF)) injection 4 mg 2023-05 03:42: 41 03-11 16:10 :43 No 4mg 4 mg, Slow IV Push, Q6HPRN, Starting on Sat03/10/24 at 2242, Until Sat03/11/24 at 1110, [place], Nausea and Vomiting (N/V) [facility] pantoprazol e (PROTONIX) injection 40 mg 2023-05 03:30: 00 03-13 16:08 :09 No 40mg 40 mg, Slow IV Push, Q12H, First dose on Sat03/10/24 at 2230, Until Discontinu ed [facility] morpHINE injection 4 mg 2023-05 03:21: 30 03-11 13:44 :25 No 4mg 4 mg, Slow IV Push, Q4HPRN, Starting on Sat03/10/24 at 2221, Until Sat03/11/24 at 0844, Routine, Pain (scale 7-10) [facility] acetaminoph en (TYLENOL) tablet 650 mg 2023-05 03:21: 25 03-13 16:08 :09 No 650mg [facility] morpHINE injection 4 mg 2023-05 02:00: 00 03-11 01:10 :00 No 4mg 4 mg, Slow IV Push, ONCE, 1 dose, On Sat03/10/24 at 2100, STAT [facility] trimethoben zamide (TIGAN) injection 100 mg 2023-05 02:00: 00 03-11 02:05 :00 No 100mg 100 mg, Intramuscu lar, ONCE, 1 dose, On Sat03/10/24 at 2100, Routine [facility] morpHINE injection 4 mg 2023-05 21:30: 00 03-10 22:20 :00 No 4mg 4 mg, Slow IV Push, ONCE, 1 dose, On Sat03/10/24 at 1630, STAT [facility] proMETHazin e (PHENERGAN) 25 mg in NS 50 mL IV piggyback (CNR) 2023-05 21:00: 00 03-10 22:30 :00 No 25mg 25 mg, IV Piggyback, at 200 mL/hr Administer over 15 Minutes, ONCE, 1 dose, On Sat03/10/24 at 1600, [place] [facility] diphenhydrA MINE (BENADRYL) injection 25 mg 2023-05 19:00: 00 03-10 19:12 :00 No 25mg 25 mg, Slow IV Push, ONCE, 1 dose, On Sat03/10/24 at 1400, STAT [facility] ondansetron (ZOFRAN (PF)) injection 4 mg 2023-05 18:30: 00 03-10 18:34 :00 No 4mg 4 mg, Slow IV Push, ONCE, 1 dose, On Sat03/10/24 at 1330, [facility] diphenhydrA MINE:lidoca ine 2% viscous:maa lox 1:1:1 (FIRST-MOUT HWASH BLM) oral suspension 15 mL 2023-05 17:15: 00 03-10 18:34 :00 No 15mL 15 mL, Oral, ONCE, 1 dose, On Sat03/10/24 at 1215, Routine [facility] NaCl 0.9% (NS) bolus infusion 1,500 mL 2023-05 16:30: 00 03-11 00:19 :00 No 1500mL at 999 mL/hr, 1,500 mL, IV Infusion, ONCE, 1 dose, On Sat03/10/24 at 1130, [facility] morpHINE injection 4 mg 2023-05 16:30: 00 03-10 16:33 :00 No 4mg 4 mg, Slow IV Push, ONCE, 1 dose, On Sat03/10/24 at 1130, STAT [facility] ondansetron (ZOFRAN (PF)) injection 4 mg 2023-05 15:30: 00 03-10 15:54 :00 No 4mg 4 mg, Slow IV Push, ONCE, 1 dose, On Sat03/10/24 at 1030, [facility] pantoprazol e (PROTONIX) EC tablet 40 mg 2023-05 025 01:00: 00 03-05 22:06 :08 No 40mg 40 mg, Oral, BID, First dose on Sat03/05/24 at 2000, Until Discontinu ed, Routine [facility] bismuth subsalicyla te (PEPTO BISMOL) chewable tablet 524 mg 2023-05 17:00: 00 03-05 22:06 :08 No 524mg 524 mg, Oral, QID, 56 doses, First dose on Sat03/05/24 at 1200, Last dose on Sat03/19/24 at 0800, Routine [facility] tetracyclin e (ACHROMYCIN ) capsule 500 mg 2023-05 13:00: 00 03-05 22:06 :08 No 500mg 500 mg, Oral, QID, 56 doses, First dose on Sat03/05/24 at 0800, Last dose on Sat03/18/24 at 2000, [place], Reason for Anti-Infec tive: Documented Infection, Documented Infection Site: Abdominal, Duration of Therapy: 14 days [facility] metroNIDAZO LE (FLAGYL) tablet 500 mg 2023-05 11:30: 00 03-05 22:06 :08 No 500mg 500 mg, Oral, Q8H, 42 doses, First dose on Sat03/05/24 at 0630, Last dose on Sat03/18/24 at 2200, Routine, Reason for Anti-Infec tive: Documented Infection, Documented Infection Site: Abdominal, Duration of Therapy: 14 days [facility] pantoprazol e (PROTONIX) injection 40 mg 2023-05 01:00: 00 03-05 16:38 :50 No 40mg 40 mg, Slow IV Push, Q12H, First dose on Sat03/04/24 at 2000, Until Discontinu ed [facility] metroNIDAZO LE 500 mg tablet 2023-05 00:00: 00 Yes [id number] 500mg Take 1 tablet by mouth 4 (four) times daily. [facility] tetracyclin e 500 mg capsule 2023-05 00:00: 00 Yes [id number] 500mg Take 1 capsule by mouth 4 (four) times daily. [facility] bismuth subsalicyla te 525 mg Tab 2023-05 00:00: 00 Yes [id number] 525mg Take 525 mg by mouth 4 (four) times daily. [facility] omeprazole 20 mg capsule 2023-05 00:00: 00 Yes [id number] 20mg Take 1 capsule by mouth in the morning and 1 capsule in the evening. [facility] ondansetron 4 mg disintegrat ing tablet 2023-05 00:00: 00 Yes [id number] 4mg Take 1 tablet by mouth every 8 (eight) hours as needed for Nausea and Vomiting (N/V). [facility] enoxaparin (LOVENOX) injection 40 mg 2023-05 22:00: 00 03-05 22:06 :08 No 40mg 40 mg, Subcutaneo us, DAILY, First dose on Sat03/04/24 at 1700, Until Discontinu ed, Routine [facility] hydrOXYzine (ATARAX) tablet 10 mg 2023-05 20:02: 48 03-05 22:06 :08 No 10mg 10 mg, Oral, Q6HPRN, Starting on Sat03/04/24 at 1502, Until Kathie 03/05/24 at 1706, Routine, Anxiety [facility] morphine (2 mg/mL) injection 4 mg 2023-05 19:15: 05 03-05 19:09 :51 No 4mg 4 mg, Slow IV Push, Q6HPRN, Starting on Sat03/04/24 at 1415, Until Kathie 03/05/24 at 1409, Routine, Pain (scale 7-10) [facility] proMETHazin e (PHENERGAN) 12.5 mg in NS 50 mL IV piggyback (CNR) 2023-05 19:13: 41 03-05 22:06 :08 No 12.5mg 12.5 mg, IV Piggyback, at 200 mL/hr Administer over 15 Minutes, Q4HPRN, Starting on Sat03/04/24 at 1413, Until Kathie 03/05/24 at 1706, Routine, N/V unresponsi ve to Ondansetro n [facility] ondansetron (ZOFRAN (PF)) injection 4 mg 2023-05 19:10: 57 03-05 22:06 :08 No 4mg 4 mg, Slow IV Push, Q6HPRN, Starting on Sat03/04/24 at 1410, Until Sat03/05/24 at 1706, Routine, Nausea and Vomiting (N/V) [facility] HYDROcodone -acetaminop hen (NORCO 5) tablet 1 tablet 2023-05 19:10: 38 03-05 22:06 :08 No 1{tbl} 1 tablet, Oral, Q6HPRN, Starting on Sat03/04/24 at 1410, Until Sat03/05/24 at 1706, Routine, Pain (scale 4-6) [facility] acetaminoph en (TYLENOL) tablet 650 mg 2023-05 19:10: 34 03-05 22:06 :08 No 650mg [facility] morphine (2 mg/mL) injection 4 mg 2023-05 16:15: 00 03-04 16:19 :00 No 4mg 4 mg, Slow IV Push, ONCE, 1 dose, On Sat03/04/24 at 1115, [place] [facility] ondansetron (ZOFRAN (PF)) injection 4 mg 2023-05 16:15: 00 03-04 16:19 :00 No 4mg 4 mg, Slow IV Push, ONCE, 1 dose, On Sat03/04/24 at 1115[facility] 4 mg 2023-05 13:15: 00 03-04 13:57 :00 No 4mg 4 mg, Slow IV Push, ONCE, 1 dose, On Sat03/04/24 at 0815, STAT [facility] pantoprazol e (PROTONIX) injection 40 mg 2023-05 13:15: 00 03-04 14:04 :00 No 40mg 40 mg, Slow IV Push, ONCE, 1 dose, On Sat03/04/24 at 0815 [facility] NaCl 0.9% (NS) bolus infusion 1,000 mL 2023-05 13:15: 00 03-04 16:51 :00 No 1000mL at 999 mL/hr, 1,000 mL, IV Infusion, ONCE, 1 dose, On Sat03/04/24 at 0815, [place] [facility] ondansetron (ZOFRAN (PF)) injection 4 mg 2023-05 12:15: 00 03-04 13:56 :00 No 4mg 4 mg, Slow IV Push, ONCE, 1 dose, On Sat03/04/24 at 0715, [place] [facility] escitalopra m oxalate 20 mg tablet 2023-05 00:00: 00 Yes 20mg Take 1 tablet by mouth in the morning. [facility] eszopiclone 3 mg tablet 2023-05 00:00: 00 Yes 3mg Take 1 tablet by mouth at bedtime. [facility] bismuth subsalicyla te 525 mg Tab 2023-05 00:00: 00 03-05 00:00 :00 No [id number] 525mg Take 525 mg by mouth 4 (four) times daily for 14 days. [facility] metroNIDAZO LE 500 mg tablet 2023-05 00:00: 00 03-05 00:00 :00 No [id number] 500mg Take 1 tablet by mouth 4 (four) times daily for 14 days. [facility] tetracyclin e 500 mg capsule 2023-05 00:00: 00 03-05 00:00 :00 No [id number] 500mg Take 1 capsule by mouth 4 (four) times daily for 14 days. [facility] omeprazole 20 mg capsule 2023-05 00:00: 00 03-05 00:00 :00 No [id number] 20mg Take 1 capsule by mouth in the morning and 1 capsule in the evening. Do all this for 14 days. [facility] pantoprazol e (PROTONIX) EC tablet 40 mg 2023-05 16:45: 00 02-26 23:59 :22 No 40mg 40 mg, Oral, BID, First dose (after last modificati on) on Sat02/27/24 at 1145, Until Discontinu ed, Routine [facility] lactated ringers IV infusion 2023-05 15:19: 00 02-26 15:26 :52 No IV Infusion, CONTINUOUS PRN, Starting on Kathie 02/27/24 at 1019, Until Kathie 02/27/24 at 1026, Routine, Intra-op [facility] simethicone (GAS RELIEF (SIMETHICON E)) 40 mg/0.6 mL drops 2023-05 14:57: 00 02-26 16:34 :28 No PRN, Starting on Kathie 02/27/24 at 0957, Until Kathie 02/27/24 at 1134, Routine, Intra-op [facility] PHENYLephri ne 1000 mcg/10 mL in 0.9% NaCl syringe 2023-05 14:50: 00 02-26 15:26 :52 No Intravenou s, ONCE INTRA PROCEDURE, Starting on Kathie 02/27/24 at 0950, Until Kathie 02/27/24 at 1026, Routine, Intra-op [facility] dexmedeTOMI Dine (PRECEDEX) injection 2023-05 14:27: 00 02-26 15:26 :52 No Intravenou s, ONCE INTRA PROCEDURE, Starting on Kathie 02/27/24 at 0927, Until Kathie 02/27/24 at 1026, Routine, Intra-op [facility] propofoL IV infusion 2023-05 14:26: 00 02-26 15:26 :52 No IV Infusion, ONCE INTRA PROCEDURE, Starting on Kathie 02/27/24 at 0926, Until Kathie 02/27/24 at 1026, Routine, Intra-op [facility] lidocaine 1% (XYLOCAINE) 100 mg/10 mL (1 %) injection 2023-05 14:26: 00 02-26 15:26 :52 No Intravenou s, ONCE INTRA PROCEDURE, Starting on Kathie 02/27/24 at 0926, Until Kathie 02/27/24 at 1026, Routine, Intra-op [facility] FENTanyl (PF) (SUBLIMAZE) injection 2023-05 14:26: 00 02-26 15:26 :52 No Intravenou s, ONCE INTRA PROCEDURE, Starting on Kathie 02/27/24 at 0926, Until Kathie 02/27/24 at 1026, Routine, Intra-op [facility] midazolam (VERSED) injection 2023-05 14:24: 00 02-26 15:26 :52 No IV Push, ONCE INTRA PROCEDURE, Starting on Kathie 02/27/24 at 0924, Until Kathie 02/27/24 at 1026, Routine, Intra-op [facility] NaCl 0.9% (NS) IV infusion 2023-05 14:22: 00 02-26 15:26 :52 No IV Infusion, CONTINUOUS PRN, Starting on Kathie 02/27/24 at 0922, Until Kathie 02/27/24 at 1026, Routine, Intra-op [facility] sodium phosphates (READY-TO-U SE ENEMA) 19-7 gram/118 mL enema 1 Enema 2023-05 10:00: 00 02-26 10:05 :00 No 1{enema } 1 Enema, Rectal, ONCE, 1 dose, On Sat02/27/24 at 0500, Routine [facility] polyethylen e glycol 3350 powder 17 g 2023-05 01:00: 00 02-26 21:59 :19 No 17g 17 g, Oral, BID, First dose (after last modificati on) on Sat02/26/24 at 2000, Until Discontinu ed, Routine [facility] ondansetron 4 mg disintegrat ing tablet 2023-05 00:00: 00 03-05 00:00 :00 No [id number] 4mg Take 1 tablet by mouth every 8 (eight) hours as needed for Nausea and Vomiting (N/V). [facility] pantoprazol e 40 mg EC tablet 2023-05 00:00: 00 03-05 00:00 :00 No [id number] 40mg Take 1 tablet by mouth in the morning and 1 tablet in the evening. [facility] amitriptyli ne 25 mg tablet 2023-05 00:00: 00 03-04 00:00 :00 No [id number] 25mg Take 1 tablet by mouth at bedtime. [facility] acetaminoph en-codeine 300-30 mg tablet 2023-05 00:00: 00 02-26 00:00 :00 No [id number] 1{tbl} Take 1 tablet by mouth every 4 (four) hours as needed for Pain (scale 7-10) for up to 7 days. Indication s: acute pain [facility] simethicone (GAS RELIEF (SIMETHICON E)) chewable tablet 80 mg 2023-05 23:00: 00 02-26 21:59 :19 No 80mg 80 mg, Oral, PC+HS, First dose on Sat02/26/24 at 1800, Until Discontinu ed, Routine [facility] morphine (2 mg/mL) injection 2 mg 2023-05 20:22: 36 02-26 21:59 :19 No 2mg 2 mg, Slow IV Push, Q4HPRN, Starting on Sat02/26/24 at 1522, Until Kathie 02/27/24 at 1659, Routine, Pain (scale 4-6) [facility] morphine (2 mg/mL) injection 4 mg 2023-05 20:22: 32 02-26 21:59 :19 No 4mg 4 mg, Slow IV Push, Q4HPRN, Starting on Sat02/26/24 at 1522, Until Kathie 02/27/24 at 1659, Routine, Pain (scale 7-10) [facility] LORazepam (ATIVAN) injection 0.5 mg 2023-05 18:39: 21 02-26 21:59 :19 No .5mg 0.5 mg, Slow IV Push, Q6HPRN, Starting on Sat02/26/24 at 1339, Until Kathie 02/27/24 at 1659, Routine, Anxiety [facility] bisacodyL (DULCOLAX) suppository 10 mg 2023-05-16 18:17: 00 02-25 18:47 :00 No 10mg 10 mg, Rectal, ONCE NOW, 1 dose, On Sat02/26/24 at 1330, Routine [facility] acetaminoph en (OFIRMEV) IV piggyback 1,000 mg 2023-05 15:30: 00 02-25 15:03 :00 No 1000mg 1,000 mg, IV Piggyback, at 400 mL/hr Administer over 15 Minutes, ONCE, 1 dose, On Sat02/26/24 at 1030, Routine, Is the patient strict NPO and unable to tolerate oral medication s? Yes [facility] bisacodyL (DULCOLAX) tablet 5 mg 2023-05 14:30: 00 02-26 21:59 :19 No 5mg 5 mg, Oral, DAILY, First dose on Sat02/26/24 at 0930, Until Discontinu ed, Routine [facility] amitriptyli ne (ELAVIL) tablet 25 mg 2023-05 02:00: 00 02-26 23:59 :22 No 25mg 25 mg, Oral, QHS, First dose on Sat02/25/24 at 2100, Until Discontinu ed, Routine [facility] morphine (2 mg/mL) injection 4 mg 2023-05 18:49: 53 02-25 14:28 :08 No 4mg 4 mg, Slow IV Push, Q4HPRN, Starting on Sat02/25/24 at 1349, Until Sat02/26/24 at 0928, Routine, Pain (scale 7-10) [facility] morphine (2 mg/mL) injection 2 mg 2023-0515 18:49: 15 02-25 14:28 :08 No 2mg 2 mg, Slow IV Push, Q4HPRN, Starting on Sat02/25/24 at 1349, Until Sat02/26/24 at 0928, Routine, Pain (scale 7-10) [facility] gadobenate dimeglumine (MULTIHANCE -10 mL) injection 9.08 mL 2023-05 17:30: 00 02-24 17:30 :00 No [id number] .2mL/kg 9.08 mL (0.2 mL/kg ?45.4 kg), Intravenou s, ONCE, 1 dose, On Sat02/25/24 at 1230, Routine [facility] LORazepam (ATIVAN) injection 1 mg 2023-05 17:00: 00 02-24 16:25 :00 No 1mg 1 mg, Slow IV Push, ONCE, 1 dose, On Sat02/25/24 at 1200, [facility] 3350 powder 17 g 2023-05 16:00: 00 02-25 14:24 :01 No 17g 17 g, Oral, DAILY, First dose on Sat02/25/24 at 1100, Until Discontinu ed, Routine [facility] lactated ringers IV infusion 1,000 mL 2023-05 13:15: 00 02-26 21:59 :19 No 1000mL at 125 mL/hr, 1,000 mL, IV Infusion, CONTINUOUS , Starting on Sat02/25/24 at 0815, Until Sat02/27/24 at 1659, [facility] (KCL) 20 mEq/100 mL IV infusion 20 mEq 2023-05 13:00: 00 02-24 13:30 :00 No 20meq 20 mEq, IV Infusion, at 50 mL/hr Administer over 2 Hours, ONCE, 1 dose, On Sat02/25/24 at 0800, Routine [facility] melatonin (MELATIN) tablet 3 mg 2023-05 02:00: 00 02-26 21:59 :19 No 3mg 3 mg, Oral, QHS, First dose on Sat02/24/24 at 2100, Until Discontinu ed, [facility] 500 mL 2023-05 19:30: 00 02-24 09:54 :00 No 500mL at 999 mL/hr, 500 mL, IV Infusion, ONCE, 1 dose, On Sat02/24/24 at 1430, Routine [facility] Lidocaine (LIDOCARE) 4 % patch 1 Patch 2023-05 18:00: 00 02-24 05:15 :00 No 1{patch } 1 Patch, Topical, Administer over 12 Hours, ONCE, 1 dose, On Sat02/24/24 at 1300, Routine [facility] [facility] LORazepam (ATIVAN) injection 0.5 mg 2023-05 12:25: 30 02-25 18:39 :43 No .5mg 0.5 mg, Slow IV Push, Q6HPRN, Starting on Sat02/24/24 at 0725, Until Sat02/26/24 at 1339, Routine, Anxiety, Agitation [facility] diphenhydrA MINE (BENADRYL) injection 25 mg 2023-05 01:40: 29 02-23 14:54 :01 No 25mg 25 mg, Intravenou s, Q6HPRN, Starting on Sat02/23/24 at 2040, Until Sat02/24/24 at 0954, Routine, Nausea and Vomiting (N/V) [facility] LORazepam (ATIVAN) injection 0.5 mg 2023-05 01:39: 00 02-23 02:48 :00 No .5mg 0.5 mg, Slow IV Push, ONCE, 1 dose, On Sat02/23/24 at 2045, Routine [facility] diphenhydrA MINE (BENADRYL) injection 25 mg 2023-05 14:19: 13 02-23 01:14 :28 No 25mg 25 mg, Intravenou s, Q6HPRN, Starting on Sat02/23/24 at 0919, Until Sat02/23/24 at 2014, Routine, Nausea and Vomiting (N/V) [facility] ondansetron (ZOFRAN (PF)) injection 4 mg 2023-05 14:18: 38 02-26 21:59 :19 No 4mg 4 mg, Slow IV Push, Q6HPRN, Nausea and Vomiting (N/V), Starting on 02/23/24 at 0918, Doses of ondansetro n 16 mg and above need to be administer ed via IV piggyback. For Dose >=24mg ECG monitoring is advisable. [facility] pantoprazol e (PROTONIX) injection 40 mg 2023-05 11:53: 00 02-25 19:46 :39 No 40mg 40 mg, Slow IV Push, Q24H, First dose (after last modificati on) on 02/23/24 at 0700, Until Discontinu ed [facility] cariprazine (VRAYLAR) 1.5 mg capsule 2023-05 09:24: 25 Yes 1.5mg Take 1 capsule by mouth in the morning. [facility] LORazepam 0.5 mg tablet 2023-05 09:24: 25 Yes .5mg Take 1 tablet by mouth. [facility] diphenhydrA MINE (BENADRYL) injection 25 mg 2023-05 03:57: 18 02-22 14:19 :23 No 25mg 25 mg, Intravenou s, Q4HPRN, Starting on 02/22/24 at 2257, Until 02/23/24 at 0919, Routine, Nausea and Vomiting (N/V) [facility] heparin (porcine) injection 5,000 Units 2023-05 01:00: 00 02-26 21:59 :19 No 5000U 5,000 Units, Subcutaneo us, Q12H, First dose on 02/22/24 at 2000, Until Discontinu ed, Routine [facility] morphine (2 mg/mL) injection 4 mg 2023-05 19:33: 18 02-24 15:57 :38 No 4mg 4 mg, Slow IV Push, Q4HPRN, Starting on 02/22/24 at 1433, Until 02/25/24 at 1057, Routine, Pain (scale 7-10) [facility] proMETHazin e (PHENERGAN) 25 mg in NS 50 mL IV piggyback (CNR) 2023-05 19:33: 05 02-22 14:19 :00 No 25mg 25 mg, IV Piggyback, at 200 mL/hr Administer over 15 Minutes, Q4HPRN, Starting on 02/22/24 at 1433, Until 02/23/24 at 0919, [place], Nausea and Vomiting (N/V) [facility] metoprolol tartrate 50 mg tablet 2023-05 19:26: 59 02-26 00:00 :00 No 50mg Take 1 tablet by mouth in the morning and 1 tablet in the evening. [facility] escitalopra m oxalate (LEXAPRO) 10 mg tablet 2023-05 19:26: 59 02-26 00:00 :00 No 10mg Take 1 tablet by mouth in the morning. [facility] morphine (2 mg/mL) injection 4 mg 2023-05 17:45: 00 02-21 18:20 :00 No 4mg 4 mg, Slow IV Push, ONCE, 1 dose, On 02/22/24 at 1245, STAT [facility] proMETHazin e (PHENERGAN) 25 mg in NS 50 mL IV piggyback (CNR) 2023-05 16:45: 00 02-21 17:33 :00 No 25mg 25 mg, IV Piggyback, at 200 mL/hr Administer over 15 Minutes, ONCE, 1 dose, On 02/22/24 at 1145, [place] [facility] morphine (2 mg/mL) injection 4 mg 2023-05 16:00: 00 02-21 16:06 :00 No 4mg 4 mg, Slow IV Push, ONCE, 1 dose, On 02/22/24 at 1100, STAT [facility] famotidine (PEPCID (PF)) injection 20 mg 2023-05 15:00: 00 02-21 15:35 :00 No 20mg 20 mg, Slow IV Push, ONCE, 1 dose, On 02/22/24 at 1000, [place] [facility] ondansetron (ZOFRAN (PF)) injection 4 mg 2023-05 15:00: 00 02-21 15:34 :00 No 4mg 4 mg, Slow IV Push, ONCE, 1 dose, On 02/22/24 at 1000, [place] [facility] NaCl 0.9% (NS) bolus infusion 1,000 mL 2023-05 15:00: 00 02-21 18:06 :00 No 1000mL at 999 mL/hr, 1,000 mL, IV Infusion, ONCE, 1 dose, On 02/22/24 at 1000, STAT [facility] buPROPion XL 150 mg 24 hr tablet 01-22 00:00: 00 Yes 150mg Take 1 tablet by mouth every morning. [facility] cholestyram ine 4 gram powder 01-20 00:00: 00 Yes MIX AND DRINK 1 SCOOP BY MOUTH DAILY [facility] busPIRone 7.5 mg tablet 01-19 00:00: 00 Yes 7.5mg Take 1 tablet by mouth in the morning and 1 tablet in the evening. [facility] metoprolol tartrate 50 mg tablet 08-25 11:55: 42 Yes 50mg Take 1 tablet by mouth in the morning and 1 tablet in the evening. [facility] escitalopra m oxalate (LEXAPRO) 10 mg tablet 08-25 11:55: 42 Yes 10mg Take 1 tablet by mouth in the morning. [facility] divalproex ER 250 mg 24 hr tablet 08-23 00:00: 00 11-22 04:59 :00 No [id number] 250mg Take 1 tablet by mouth in the morning and 1 tablet in the evening. Do all this for 90 days. [facility] acetaminoph en-codeine 300-30 mg tablet 08-23 00:00: 00 08-31 04:59 :00 No [id number] 1{tbl} Take 1 tablet by mouth every 6 (six) hours as needed for Pain (scale 4-6) or Pain (scale 7-10) for up to 7 days. Indication s: acute pain [facility] cefTRIAXone (ROCEPHIN) 1,000 mg in NaCl 0.9% (NS) 100 mL MINI-BAG 05-19 16:45: 00 05-19 17:24 :00 No 1000mg 1,000 mg, IV Piggyback, ONCE, 1 dose, On Sat05/19/23 at 1045, Administer over 30 Minutes, 100 mL
Reas on for Anti-Infec tive: Documented Infection< br>Documen renata Infection Site: Urine
D uration of Therapy: Other (see Comments) [facility] morpHINE (4 mg/mL) injection 4 mg 05-19 16:45: 00 05-19 16:53 :00 No 4mg 4 mg, Slow IV Push, ONCE, 1 dose, On Sat05/19/23 at 1045, STAT [facility] NaCl 0.9% (NS) bolus infusion 1,000 mL 05-19 16:00: 00 05-19 17:00 :00 No 1000mL at 999 mL/hr, 1,000 mL, IV Infusion, ONCE, 1 dose, On Sat05/19/23 at 1000, [place] [facility] iopamidol (ISOVUE 370-500 mL) injection 80 mL 05-19 15:50: 00 05-19 16:15 :00 No [id number] 80mL 80 mL, Intravenou s, ONCE, 1 dose, On Sat05/19/23 at 1015, Routine [facility] dicyclomine (BENTYL) tablet 20 mg 05-19 15:45: 00 05-19 16:09 :00 No 20mg 20 mg, Oral, ONCE, 1 dose, On Sat05/19/23 at 0945, [place] [facility] ondansetron (ZOFRAN (PF)) injection 4 mg 05-19 15:15: 00 05-19 15:50 :00 No 4mg 4 mg, Slow IV Push, ONCE, 1 dose, On 05/19/23 at 0915, [place] [facility] maalox:diph enhydrAMINE :lidocaine 2 % viscous 1:1:1 ([facility]) oral suspension 15 mL 05-19 15:15: 00 05-19 15:49 :00 No 15mL 15 mL, Oral, ONCE, 1 dose, On 05/19/23 at 0915, Routine [facility] famotidine (PEPCID (PF)) injection 20 mg 05-19 15:15: 00 05-19 15:51 :00 No 20mg 20 mg, Slow IV Push, ONCE, 1 dose, On 05/19/23 at 0915, [place] [facility] ondansetron 4 mg disintegrat ing tablet 05-19 00:00: 00 02-26 00:00 :00 No [id number] 4mg Take 1 tablet by mouth every 8 (eight) hours as needed for Nausea and Vomiting (N/V). [facility] sucralfate 1 gram tablet 05-19 00:00: 00 06-19 05:59 :00 No [id number] 1g Take 1 tablet by mouth before meals and at bedtime for 30 days. [facility] pantoprazol e 40 mg EC tablet 05-19 00:00: 00 06-19 05:59 :00 No [id number] 40mg Take 1 tablet by mouth in the morning for 30 days. [facility] cefdinir 300 mg capsule 05-19 00:00: 00 05-27 05:59 :00 No [id number] 300mg Take 1 capsule by mouth every 12 (twelve) hours for 7 days. [facility] morpHINE (2 mg/mL) injection 2 mg 01-15 19:15: 00 01-15 18:49 :00 No 2mg 2 mg, Slow IV Push, ONCE, 1 dose, On Sat01/15/23 at 1415, Routine [facility] ondansetron (ZOFRAN) tablet 4 mg 01-15 18:15: 00 01-15 22:02 :00 No 4mg 4 mg, Oral, ONCE, 1 dose, On Sat01/15/23 at 1315, [facility] 01-15 00:00: 00 02-26 00:00 :00 No [id number] 4mg Take 1 tablet by mouth every 8 (eight) hours as needed for Nausea and Vomiting (N/V). [facility] HYDROcodone -acetaminop hen 5-325 mg tablet 01-15 00:00: 00 01-23 04:59 :00 No [id number] 1{tbl} Take 1 tablet by mouth every 4 (four) hours as needed for Pain (scale 4-6) for up to 7 days. Indication s: acute pain [facility] morpHINE (2 mg/mL) injection 2 mg 01-14 16:11: 23 01-15 11:49 :59 No 2mg 2 mg, Slow IV Push, Q4HPRN, Starting on Sat01/14/23 at 1111, Until Sat01/15/23 at 0649, Routine, Pain (scale 7-10) [facility] methocarbam oL (ROBAXIN) tablet 500 mg 01-14 13:00: 00 Yes 500mg 500 mg, Oral, QID, First dose on Sat01/14/23 at 0800, Until Discontinu ed, Routine [facility] celecoxib (CELEBREX) capsule 100 mg 01-14 13:00: 00 Yes 100mg 100 mg, Oral, BID MEALS, First dose on Sat01/14/23 at 0800, Until Discontinu ed, Routine [facility] gabapentin (NEURONTIN) capsule 300 mg 01-14 01:30: 00 Yes 300mg 300 mg, Oral, TID, First dose on Sat01/13/23 at 2030, Until Discontinu ed, Routine [facility] acetaminoph en (TYLENOL) tablet 1,000 mg 01-14 01:30: 00 Yes 1000mg 1,000 mg, Oral, Q8H, First dose (after last modificati on) on Sat01/13/23 at 2030, Until Discontinu ed, Routine [facility] scopolamine transdermal (TRANSDERM- SCOP) patch 1.5 mg 01-13 00:30: 00 Yes 1.5mg 1.5 mg, Topical, Administer over 72 Hours, Q72H, First dose on Sat01/12/23 at 1930, Until Discontinu ed, Routine [facility] enoxaparin (LOVENOX) injection 40 mg 01-12 22:00: 00 Yes 40mg 40 mg, Subcutaneo us, DAILY, First dose on Sat01/12/23 at 1700, Until Discontinu ed, Routine [facility] FENTanyl PF (SUBLIMAZE (PF)) injection 100 mcg 01-12 20:30: 00 01-12 20:30 :00 No [id number] 100ug 100 mcg, Slow IV Push, ONCE, 1 dose, On Sat01/12/23 at 1530, Routine [facility] proMETHazin e (PHENERGAN) 25 mg in NS 50 mL IV piggyback (CNR) 01-12 17:11: 31 01-15 14:12 :44 No 25mg 25 mg, IV Piggyback, at 200 mL/hr Administer over 15 Minutes, Q4HPRN, Starting on Sat01/12/23 at 1211, Until Sat01/15/23 at 0912, Routine, Nausea and Vomiting (N/V) [facility] piperacilli n-tazobacta m (ZOSYN) 3.375 [...] Abdominal< br>Duratio n of Therapy: 7 days [facility] pantoprazol e (PROTONIX) EC tablet 40 mg 01-12 14:00: 00 Yes 40mg 40 mg, Oral, DAILY, First dose on 01/12/23 at 0900, Until Discontinu ed, Routine [facility] KCL (KLOR-CON M20) tablet 40 mEq 01-12 09:30: 00 01-12 09:25 :00 No 40meq 40 mEq, Oral, ONCE, 1 dose, On 01/12/23 at 0430, Routine [facility] diphenhydrA MINE (BENADRYL) tablet 25 mg 01-12 08:31: 43 Yes 25mg 25 mg, Oral, QHSPRN, Starting on 01/12/23 at 0331, Until Discontinu ed, Routine, Itching, Sleep [facility] lactated ringers IV infusion 1,000 mL 01-12 08:15: 00 01-15 11:48 :29 No 1000mL at 50 mL/hr, 1,000 mL, IV Infusion, CONTINUOUS , Starting on 01/12/23 at 0315, Until 01/15/23 at 0648, Routine [facility] piperacilli n-tazobacta m (ZOSYN) 3.375 g in NaCl 0.9% (NS) 100 mL MINI-BAG 01-12 06:45: 00 01-12 08:43 :00 No 3.375g 3.375 g, IV Piggyback, ONCE, 1 dose, On 01/12/23 at 0145, Administer over 30 Minutes, 100 mL
Reas on for Anti-Infec tive: Documented Infection< br>Documen renata Infection Site: Abdominal< br>Duratio n of Therapy: 7 days [facility] lactated ringers IV infusion 1,000 mL 01-12 06:00: 00 01-12 08:13 :38 No 1000mL at 100 mL/hr, 1,000 mL, IV Infusion, CONTINUOUS , Starting on 01/12/23 at 0100, Until 01/12/23 at 0313, Routine [facility] morpHINE (4 mg/mL) injection 4 mg 01-12 05:49: 22 01-14 05:48 :22 No 4mg 4 mg, Slow IV Push, Q4HPRN, Starting on 01/12/23 at 0049, Until 01/14/23 at 0048, Routine, Pain (scale 7-10) [facility] HYDROcodone -acetaminop hen (NORCO 5) 5-325 mg tablet 1 tablet 01-12 05:49: 18 Yes 1{tbl} 1 tablet, Oral, Q4HPRN, Starting on 01/12/23 at 0049, Until Discontinu ed, Routine, Pain (scale 4-6) [facility] ondansetron (ZOFRAN (PF)) injection 4 mg 01-12 05:49: 11 01-15 17:31 :12 No 4mg 4 mg, Slow IV Push, Q6HPRN, Starting on 01/12/23 at 0049, Until Tu01/15/23 at 1231, Routine, Nausea and Vomiting (N/V) [facility] ondansetron (ZOFRAN (PF)) injection 4 mg 01-12 04:45: 00 01-12 04:45 :00 No 4mg 4 mg, Slow IV Push, ONCE, 1 dose, On Sat01/11/23 at 2345, [place] [facility] morpHINE (4 mg/mL) injection 4 mg 01-12 04:45: 00 01-12 04:45 :00 No 4mg 4 mg, Slow IV Push, ONCE, 1 dose, On Sat01/11/23 at 2345, STAT [facility] proMETHazin e (PHENERGAN) 25 mg in NS 50 mL IV piggyback (CNR) 01-12 04:45: 00 01-12 06:00 :00 No 25mg 25 mg, IV Piggyback, at 200 mL/hr Administer over 15 Minutes, ONCE, 1 dose, On Sat01/11/23 at 2345, [facility] iopamidol (ISOVUE 370-500 mL) injection 80 mL 01-12 03:33: 00 01-12 03:25 :00 No [id number] 80mL 80 mL, Intravenou s, ONCE, 1 dose, On Sat01/11/23 at 2245, Routine [facility] maalox:diph enhydrAMINE :lidocaine 2 % viscous 1:1:1 ([facility]) oral suspension 15 mL 01-12 03:30: 00 01-12 03:07 :00 No 15mL 15 mL, Oral, ONCE, 1 dose, On Sat01/11/23 at 2230, Routine [facility] morpHINE (4 mg/mL) injection 4 mg 01-12 03:30: 00 01-12 03:05 :00 No 4mg 4 mg, Slow IV Push, ONCE, 1 dose, On Sat01/11/23 at 2230, [facility] NaCl 0.9% (NS) bolus infusion 1,000 mL 01-12 03:30: 00 01-12 03:04 :00 No 1000mL at 999 mL/hr, 1,000 mL, IV Infusion, ONCE, 1 dose, On Sat01/11/23 at 2230, [facility] ondansetron (ZOFRAN (PF)) injection 4 mg 01-12 03:00: 00 01-12 03:05 :00 No 4mg 4 mg, Slow IV Push, ONCE, 1 dose, On Sat01/11/23 at 2200, [facility] ibuprofen (IBU) tablet 600 mg 11-21 22:15: 00 11-21 21:44 :00 No 600mg 600 mg, Oral, ONCE, 1 dose, On Sat11/21/22 at 1715, [facility] butalbital- acetaminoph en-caff (ESGIC) 50-325-40 mg tablet 1 tablet 11-21 21:30: 00 11-21 21:39 :00 No 1{tbl} 1 tablet, Oral, ONCE, 1 dose, On Sat11/21/22 at 1630, [place] [facility] ciprofloxac in HCl 500 mg tablet 11-11 00:00: 00 02-26 00:00 :00 No TAKE 1 TABLET BY MOUTH EVERY 12 HOURS FOR 7 DAYS [facility] methocarbam oL 750 mg tablet 11-07 00:00: 00 Yes 750mg Take 1 tablet by mouth 2 (two) times daily as needed. [facility] methocarbam oL 750 mg tablet 11-07 00:00: 00 02-26 00:00 :00 No 1{tbl} Take 1 tablet by mouth 2 (two) times daily as needed. [facility] baclofen 10 mg tablet 10-27 00:00: 00 Yes 10mg Take 1 tablet by mouth every 6 (six) hours as needed. [facility] baclofen 10 mg tablet 10-27 00:00: 00 02-26 00:00 :00 No 1{tbl} Take 1 tablet by mouth every 6 (six) hours as needed. [facility] tiZANidine 4 mg tablet 10-24 00:00: 00 Yes 4mg Take 1 tablet by mouth every 6 (six) hours as needed. [facility] tiZANidine 4 mg tablet 10-24 00:00: 00 02-26 00:00 :00 No 1{tbl} Take 1 tablet by mouth every 6 (six) hours as needed. [facility] traZODone 50 mg tablet 10-22 00:00: 00 Yes 50mg Take 1 tablet by mouth at bedtime. [facility] traZODone 50 mg tablet 10-22 00:00: 00 02-26 00:00 :00 No 1{tbl} Take 1 tablet by mouth at bedtime. [facility] hydrOXYzine 50 mg tablet 0 10-02 00:00: 00 Yes 50mg Take 1 tablet by mouth every 6 (six) hours as needed. [facility] hydrOXYzine 50 mg tablet 0 - 00:00: 00 02-26 00:00 :00 No 1{tbl} Take 1 tablet by mouth every 6 (six) hours as needed. [facility] mirtazapine 15 mg tablet 0 -12 00:00: 00 02-26 00:00 :00 No 15mg Take 1 tablet by mouth at bedtime. [facility] meloxicam 15 mg tablet -09 00:00: 00 Yes 15mg Take 1 tablet by mouth in the morning. [facility] meloxicam 15 mg tablet 09 00:00: 00 02-26 00:00 :00 No 1{tbl} Take 1 tablet by mouth in the morning. [facility] verapamil SR 120 mg ER tablet 0 -08 00:00: 00 Yes 120mg Take 1 tablet by mouth in the morning. [facility] verapamil SR 120 mg ER tablet 08 00:00: 00 02-26 00:00 :00 No 1{tbl} Take 1 tablet by mouth in the morning. [facility] OLANZapine 10 mg tablet 0 09-06 00:00: 00 02-26 00:00 :00 No 10mg Take 1 tablet by mouth in the morning. [facility] cloNIDine 0.1 mg tablet 0 09-06 00:00: 00 02-26 00:00 :00 No TAKE 1-2 TABLETS BY MOUTH AT BEDTIME NEEDED FOR SLEEP AND ANXIETY [facility] NaCl 0.9% (NS) bolus infusion 1,000 mL 09-05 18:15: 00 09-05 18:08 :00 No 1000mL at 999 mL/hr, 1,000 mL, IV Infusion, ONCE, 1 dose, On Sat09/05/22 at 1315, STAT [facility] acetaminoph en (TYLENOL) tablet 650 mg 09-05 17:30: 00 09-05 17:24 :00 No 650mg 650 mg, Oral, ONCE, 1 dose, On Sat09/05/22 at 1230, [facility] ondansetron (ZOFRAN (PF)) injection 4 mg 09-05 17:15: 00 09-05 17:23 :00 No 4mg 4 mg, Slow IV Push, ONCE, 1 dose, On Sat09/05/22 at 1215, [facility] magnesium sulfate in water 2 gram/50 mL (4 %) infusion 2 g 09-05 16:15: 00 09-05 16:10 :00 No 2g 2 g, IV Piggyback, Administer over 30 Minutes, ONCE, 1 dose, On Sat09/05/22 at 1115, Routine [facility] diphenhydrA MINE (BENADRYL) injection 25 mg 09-05 16:00: 00 09-05 16:01 :00 No 25mg 25 mg, Slow IV Push, ONCE, 1 dose, On Sat09/05/22 at 1100, STAT [facility] ketorolac (TORADOL) injection 30 mg 09-05 15:30: 00 09-05 14:38 :00 No 30mg 30 mg, Slow IV Push, ONCE, 1 dose, On Sat09/05/22 at 1030, Routine [facility] NaCl 0.9% (NS) bolus infusion 1,000 mL 09-05 15:00: 00 09-05 17:12 :00 No 1000mL at 999 mL/hr, 1,000 mL, IV Infusion, ONCE, 1 dose, On Sat09/05/22 at 1000, STAT [facility] methylpredn isolone sod succ (SOLU-MEDRO L) injection 125 mg 09-05 14:45: 00 09-05 14:35 :00 No 125mg 125 mg, Intravenou s, ONCE, 1 dose, On Sat09/05/22 at 0945, 2 mL [facility] butalbital- acetaminoph en-caff (ESGIC) 50-325-40 mg tablet 1 tablet 09-05 14:00: 00 09-05 14:34 :00 No 1{tbl} 1 tablet, Oral, ONCE, 1 dose, On Sat09/05/22 at 0900, [place] [facility] diphenhydrA MINE (BENADRYL) injection 25 mg 09-05 14:00: 00 09-05 14:39 :00 No 25mg 25 mg, Slow IV Push, ONCE, 1 dose, On Sat09/05/22 at 0900, STAT [facility] proMETHazin e (PHENERGAN) 12.5 mg in NaCl 0.9% (NS) 50 mL IV piggyback 09-05 14:00: 00 09-05 14:40 :00 No 12.5mg 12.5 mg, IV Piggyback, ONCE, 1 dose, On Sat09/05/22 at 0900, [place] [facility] carvediloL 25 mg tablet 09-05 00:00: 00 02-26 00:00 :00 No [id number] 25mg Take 1 tablet by mouth in the morning and 1 tablet in the evening. Take with meals. [facility] losartan 50 mg tablet 09-05 00:00: 00 02-26 00:00 :00 No [id number] 50mg Take 1 tablet by mouth in the morning and 1 tablet in the evening. [facility] ibuprofen 800 mg tablet 08-05 00:00: 00 02-26 00:00 :00 No 800mg Take 1 tablet by mouth 3 (three) times daily as needed. [facility] cyclobenzap rine 10 mg tablet 08-05 00:00: 00 02-26 00:00 :00 No 10mg Take 1 tablet by mouth 3 (three) times daily as needed. [facility] maalox:diph enhydrAMINE :lidocaine 2 % viscous 1:1:1 ([facility]) oral suspension 15 mL 08-01 00:45: 00 08-01 00:44 :00 No 15mL 15 mL, Oral, ONCE, 1 dose, On Sat07/31/22 at 1945, [place] [facility] ketorolac (TORADOL) injection 15 mg 08-01 00:15: 00 08-01 00:44 :00 No 15mg 15 mg, Slow IV Push, ONCE, 1 dose, On Sat07/31/22 at 1915, Routine [facility] ondansetron (ZOFRAN (PF)) injection 4 mg 08-01 00:15: 00 08-01 00:46 :00 No 4mg 4 mg, Slow IV Push, ONCE, 1 dose, On Sat07/31/22 at 1914, [place] [facility] famotidine (PEPCID (PF)) injection 20 mg 08-01 00:15: 00 08-01 00:46 :00 No 20mg 20 mg, Slow IV Push, ONCE, 1 dose, On Sat07/31/22 at 191, [place] [facility] ondansetron 4 mg disintegrat ing tablet 07-31 00:00: 00 05-19 00:00 :00 No [id number] 4mg Take 1 tablet by mouth every 8 (eight) hours as needed for Nausea and Vomiting (N/V). [facility] sucralfate 1 gram tablet 07-31 00:00: 00 05-19 00:00 :00 No [id number] 1g Take 1 tablet by mouth before meals and at bedtime. [facility] pantoprazol e 40 mg EC tablet 07-31 00:00: 00 08-15 04:59 :00 No [id number] 40mg Take 1 tablet by mouth in the morning for 14 days. [facility] tamsulosin 0.4 mg 24 hr capsule 07-25 00:00: 00 Yes .4mg Take 1 capsule by mouth in the morning. [facility] tamsulosin 0.4 mg 24 hr capsule 3-15 00:00: 00 02-26 00:00 :00 No 1{capsu le} Take 1 capsule by mouth in the morning. [facility] traMADoL 50 mg tablet 3-13 00:00: 00 02-26 00:00 :00 No 50mg Take 1 tablet by mouth. [facility] ibuprofen 600 mg tablet 3-05 00:00: 00 07-31 00:00 :00 No [id number] 600mg Take 1 tablet by mouth every 6 (six) hours as needed for Pain (scale 4-6). [facility] citalopram 10 mg tablet -17 00:00: 00 Yes 10mg Take 1 tablet by mouth in the morning. [facility] citalopram 10 mg tablet -17 00:00: 00 02-26 00:00 :00 No 1{tbl} Take 1 tablet by mouth in the morning. [facility] QUEtiapine 400 mg tablet 2-17 00:00: 00 02-26 00:00 :00 No [facility] gabapentin 600 mg tablet 2-17 00:00: 00 02-26 00:00 :00 No [facility] methylPREDN ISolone (MEDROL, ANABELA,) 4 mg tablets - 00:00: 00 Yes [id number] Take by mouth SEE-INSTRU CTIONS. follow package directions [facility] bromphenira mine-pseudo ephedrine-D M (BROMFED DM) 2-30-10 mg/5 mL syrup - 00:00: 00 07-04 05:59 :00 No [id number] 5mL Take 5 mL by mouth 4 (four) times daily as needed for Cold symptoms for up to 10 days. [facility] methocarbam oL 750 mg tablet - 00:00: 00 07-01 05:59 :00 No [id number] 750mg Take 1 tablet by mouth 4 (four) times daily for 7 days. [facility] magnesium sulfate in water 2 gram/50 mL (4 %) infusion 2 g 2021-05 21:00: 00 05-05 21:15 :00 No 2g 2 g, IV Piggyback, Administer over 15 Minutes, ONCE, 1 dose, On 05/05/22 at 1500, [facility] butalbital- acetaminoph en-caff (ESGIC) 50-325-40 mg tablet 1 tablet 2021-05 20:15: 00 05-05 20:56 :00 No 1{tbl} 1 tablet, Oral, ONCE, 1 dose, On 05/05/22 at 1415, [facility] dexamethaso ne sod phos PF injection 10 mg 2021-05 20:15: 00 05-05 21:00 :00 No 10mg 10 mg, Slow IV Push, ONCE, 1 dose, On 05/05/22 at 1415, 1 mL [facility] NaCl 0.9% (NS) bolus infusion 1,000 mL 2021-05 20:00: 00 05-05 21:45 :00 No 1000mL at 999 mL/hr, 1,000 mL, IV Infusion, ONCE, 1 dose, On 05/05/22 at 1400, [facility] diphenhydrA MINE (BENADRYL) injection 25 mg 2021-05 19:15: 00 05-05 19:42 :00 No 25mg 25 mg, Slow IV Push, ONCE, 1 dose, On 05/05/22 at 1315, STAT [facility] ondansetron (ZOFRAN (PF)) injection 4 mg 2021-05 19:15: 00 05-05 19:45 :00 No 4mg 4 mg, Slow IV Push, ONCE, 1 dose, On 05/05/22 at 1315, [facility] ketorolac (TORADOL) injection 30 mg 2021-05 19:15: 00 05-05 19:44 :00 No 30mg 30 mg, Slow IV Push, ONCE, 1 dose, On 05/05/22 at 1315, Routine [facility] butalbital- acetaminoph en-caff 50-325-40 mg tablet 2021-05 00:00: 00 Yes [id number] 1{tbl} Take 1 tablet by mouth every 4 (four) hours as needed for Pain (scale 7-10). [facility] HYDROcodone -acetaminop hen (NORCO) 10-325 mg tablet 1 tablet 2021-05 16:30: 00 04-26 15:23 :00 No 1{tbl} 1 tablet, Oral, ONCE, 1 dose, On Kathie 04/26/22 at 1030, Routine [facility] diphenhydrA MINE (BENADRYL) tablet 25 mg 2021-05 15:45: 00 04-26 15:53 :00 No 25mg 25 mg, Oral, ONCE, 1 dose, On Kathie 04/26/22 at 0945, [facility] NaCl 0.9% (NS) bolus infusion 1,000 mL 2021-05 15:45: 00 04-26 15:55 :00 No 1000mL at 999 mL/hr, 1,000 mL, IV Piggyback, ONCE, 1 dose, On Kathie 04/26/22 at 0945, STAT [facility] ondansetron (ZOFRAN (PF)) injection 4 mg 2021-05 14:45: 00 04-26 14:52 :00 No 4mg 4 mg, Slow IV Push, ONCE, 1 dose, On Kathie 04/26/22 at 0845, Routine [facility] cephALEXin (KEFLEX) 500 mg capsule 2021-05 00:00: 00 05-04 05:59 :00 No [id number] 500mg Take 1 capsule by mouth in the morning and 1 capsule at noon and 1 capsule in the evening. Do all this for 7 days. [facility] ondansetron (ZOFRAN) 4 mg tablet 2021-05 00:00: 00 07-31 00:00 :00 No 4mg Take 1 tablet by mouth every 8 (eight) hours as needed for Nausea and Vomiting (N/V). [facility] galcanezuma b-gnlm prefilled (EMGALITY) subcutaneou s injection 2021-05 00:00: 00 02-26 00:00 :00 No [id number] 120mg inject 120 mg under the skin once every month. [facility] methocarbam oL (ROBAXIN) injection 1,000 mg 2021-05 04:00: 00 Yes 1000mg 1,000 mg, Intravenou s, Q8H, First dose on 04/07/22 at 2200, Until Discontinu ed, Routine [facility] ketorolac (TORADOL) injection 30 mg 2021-05 00:45: 00 04-07 23:45 :00 No 30mg 30 mg, Slow IV Push, ONCE, 1 dose, On 04/07/22 at 1845, Routine [facility] HYDROcodone -acetaminop hen (NORCO) 10-325 mg tablet 1 tablet 2021-05 00:30: 00 04-07 23:45 :00 No 1{tbl} 1 tablet, Oral, ONCE NOW, 1 dose, On 04/07/22 at 1830, Routine [facility] diphenhydrA MINE (BENADRYL) injection 12.5 mg 2021-05 23:45: 00 04-07 23:46 :00 No 12.5mg 12.5 mg, Slow IV Push, ONCE, 1 dose, On 04/07/22 at 1745, STAT [facility] butorphanol (STADOL) injection 1 mg 2021-05 23:15: 00 04-07 22:48 :00 No 1mg 1 mg, IV Push, ONCE, 1 dose, On 04/07/22 at 1715, Routine [facility] NaCl 0.9% (NS) bolus infusion 1,000 mL 2021-05 23:15: 00 04-07 23:49 :00 No 1000mL at 999 mL/hr, 1,000 mL, IV Infusion, ONCE, 1 dose, [facility]07[facility] 1715[facility] 15 mg 2021-05 19:30: 00 03-24 18:45 :00 No 15mg 15 mg, Slow IV Push, ONCE, 1 dose, On 03/24/22 at 1330, Routine [facility] butorphanol (STADOL) injection 1 mg 2021-05 18:00: 00 03-24 17:26 :00 No 1mg 1 mg, Intravenou s, ONCE, 1 dose, On 03/24/22 at 1200, Routine [facility] proMETHazin e (PHENERGAN) 25 mg in NaCl 0.9% (NS) 50 mL IV piggyback 2021-05 18:00: 00 03-24 18:13 :00 No 25mg 25 mg, IV Piggyback, ONCE, 1 dose, On 03/24/22 at 1200, [facility] butorphanol (STADOL) injection 1 mg 2021-05 17:15: 00 03-24 16:26 :00 No 1mg 1 mg, IV Push, ONCE, 1 dose, On 03/24/22 at 1115, Routine [facility] diphenhydrA MINE (BENADRYL) injection 25 mg 2021-05 15:30: 00 03-24 15:40 :00 No 25mg 25 mg, Slow IV Push, ONCE, 1 dose, On 03/24/22 at 0930, STAT [facility] ondansetron (ZOFRAN (PF)) injection 4 mg 2021-05 15:30: 00 03-24 14:25 :00 No 4mg 4 mg, Slow IV Push, ONCE, 1 dose, On 03/24/22 at 0930, [place] [facility] NaCl 0.9% (NS) IV infusion 1,000 mL 2021-05 15:15: 00 03-24 17:25 :00 No 1000mL at 999 mL/hr, Intravenou s, ONCE, 1 dose, On 03/24/22 at 0915, [place] [facility] magnesium sulfate in water 2 gram/50 mL (4 %) infusion 2 g 2021-05 15:00: 00 03-24 14:47 :00 No 2g 2 g, IV Piggyback, Administer over 20 Minutes, ONCE, 1 dose, On 03/24/22 at 0900, Routine [facility] dexamethaso ne sod phos PF injection 6 mg 2021-05 14:15: 00 03-24 14:14 :00 No 6mg 6 mg, Slow IV Push, ONCE, 1 dose, On 03/24/22 at 0815, 1 mL [facility] diphenhydrA MINE (BENADRYL) injection 25 mg 2021-05 14:15: 00 03-24 14:16 :00 No 25mg 25 mg, Slow IV Push, ONCE, 1 dose, On 03/24/22 at 0815, STAT [facility] ALBUTEROL INHALE 2021-05 07:58: 13 03-24 00:00 :00 No [facility] rizatriptan 10 mg tablet 2021-05 00:00: 00 02-26 00:00 :00 No [id number] 10mg Take 1 tablet by mouth as needed for Migraine. May repeat in 2 hours if needed [facility] Butalbital- Acetaminoph en-Caff (FIORICET) 50-300-40 mg per capsule 2021-05 00:00: 00 02-26 00:00 :00 No [id number] 1{capsu le} Take 1 capsule by mouth every 6 (six) hours as needed for Other (headache) . [facility] magnesium oxide 200 mg magnesium Tab 2021-05 00:00: 00 04-07 00:00 :00 No [id number] 200mg Take 200 mg by mouth 2 (two) times daily. Indication s: headache [facility] SUMAtriptan 50 mg tablet 2021-05 00:00: 00 02-26 00:00 :00 No 50mg Take 1 tablet by mouth as needed for Migraine. Take one tablet at onset of migraine, may take another tablet 2 hours after initial dose if no relief with first dose. DO NOT EXCEED 100mg in a 24 hour period. [facility] FENTanyl PF (SUBLIMAZE (PF)) injection 50 mcg 2021-05 15:30: 00 03-15 14:56 :00 No 50ug 50 mcg, Slow IV Push, ONCE, 1 dose, On [place] 03/15/22 at 1030, Routine [facility] proMETHazin e (PHENERGAN) tablet 25 mg 2021-05 14:45: 00 03-15 14:55 :00 No 25mg 25 mg, Oral, ONCE, 1 dose, On [place] 03/15/22 at 0945, [place] [facility] FENTanyl PF (SUBLIMAZE (PF)) injection 50 mcg 2021-05 14:45: 00 03-15 13:58 :00 No 50ug 50 mcg, Slow IV Push, ONCE, 1 dose, On [place] 03/15/22 at 0945, Routine [facility] ondansetron (ZOFRAN (PF)) injection 4 mg 2021-05 14:00: 00 03-15 13:58 :00 No 4mg 4 mg, Slow IV Push, ONCE, 1 dose, On [place] 03/15/22 at 0900, [place] [facility] carvediloL 25 mg tablet 2021-05 00:00: 00 09-05 00:00 :00 No [id number] 25mg Take 1 tablet by mouth in the morning and 1 tablet in the evening. Take with meals. [facility] ondansetron 4 mg disintegrat ing tablet 2021-05 00:00: 00 04-07 00:00 :00 No [id number] 4mg Take 1 tablet by mouth every 8 (eight) hours as needed for Nausea and Vomiting (N/V). [facility] ketorolac 10 mg tablet 2021-05 00:00: 00 04-07 00:00 :00 No [id number] 10mg Take 1 tablet by mouth every 6 (six) hours as needed for Pain (scale 7-10). [facility] proMETHazin e 25 mg tablet 2021-05 00:00: 00 04-07 00:00 :00 No [id number] 25mg Take 1 tablet by mouth every 6 (six) hours as needed for N/V unresponsi ve to Ondansetro n. [facility] cephALEXin 500 mg capsule 2021-05 00:00: 00 03-19 05:59 :00 No [id number] 500mg Take 1 capsule by mouth 4 (four) times daily for 3 days. [facility] predniSONE 20 mg tablet 2021-05 00:00: 00 03-15 04:59 :00 No [id number] 20mg Take 1 tablet by mouth in the morning for 2 days. [facility] methocarbam oL (ROBAXIN) tablet 500 mg 2021-05 16:45: 00 03-11 17:08 :00 No 500mg 500 mg, Oral, ONCE, 1 dose, On 03/11/22 at 1200, [place] [facility] dexamethaso ne sod phos PF injection 10 mg 2021-05 16:00: 00 03-11 16:00 :00 No 10mg 10 mg, Slow IV Push, ONCE, 1 dose, On 03/11/22 at 1100, 1 mL [facility] diphenhydrA MINE (BENADRYL) injection 25 mg 2021-05 15:46: 00 03-11 16:00 :00 No 25mg 25 mg, Slow IV Push, ONCE, 1 dose, On 03/11/22 at 1100, STAT [facility] NaCl 0.9% (NS) IV infusion 1,000 mL 2021-05 15:45: 00 03-11 16:04 :00 No 1000mL at 999 mL/hr, Intravenou s, ONCE, 1 dose, On 03/11/22 at 1045, Routine [facility] butalbital- acetaminoph en-caff (ESGIC) 50-325-40 mg tablet 1 tablet 2021-05 15:00: 00 03-11 15:05 :00 No 1{tbl} 1 tablet, Oral, ONCE, 1 dose, On 03/11/22 at 1015, [facility] ketorolac (TORADOL) injection 15 mg 2021-05 14:45: 00 03-11 15:05 :00 No 15mg 15 mg, Slow IV Push, ONCE, 1 dose, On 03/11/22 at 0945, [facility] proMETHazin e (PHENERGAN) 12.5 mg in NaCl 0.9% (NS) 50 mL IV piggyback 2021-05 14:45: 00 03-11 15:04 :00 No 12.5mg 12.5 mg, IV Piggyback, ONCE, 1 dose, On 03/11/22 at 0945, [facility] proMETHazin e 25 mg tablet 2021-05 00:00: 00 07-31 00:00 :00 No [id number] 25mg Take 1 tablet by mouth every 6 (six) hours as needed for Nausea and Vomiting (N/V). [facility] methocarbam oL 500 mg tablet 2021-05 00:00: 00 04-07 00:00 :00 No [id number] 500mg Take 1 tablet by mouth 3 (three) times daily as needed for Pain (scale 7-10). [facility] topiramate 25 mg tablet 2021-05 00:00: 00 02-26 00:00 :00 No [id number] 100mg Take 4 tablets by mouth in the morning. [facility] diphenhydrA MINE 25 mg capsule 2021-05 09:39: 59 02-27 00:00 :00 No 25mg Take 25 mg by mouth every 6 (six) hours as needed for Allergies. [facility] citalopram hydrobromid e (CITALOPRAM ORAL) 2021-05 09:39: 49 02-27 00:00 :00 No Take by mouth. [facility] carbamazepi ne (TEGRETOL ORAL) 2021-05 09:39: 28 02-27 00:00 :00 No Take by mouth. [facility] albuterol 90 mcg/actuati on inhaler 2021-05 00:00: 00 02-26 00:00 :00 No [id number] 2{puff} Inhale 2 Puffs every 6 (six) hours as needed for Wheezing or Shortness of Breath. [facility] SUMAtriptan 50 mg tablet 2021-05 00:00: 00 03-21 00:00 :00 No 50mg Take 50 mg by mouth as needed for Migraine. Take one tablet at onset of migraine, may take another tablet 2 hours after initial dose if no relief with first dose. DO NOT EXCEED 100mg in a 24 hour period. [facility] benzonatate 200 mg capsule 2021-05 00:00: 00 03-07 04:59 :00 No [id number] 200mg Take 1 capsule by mouth 3 (three) times daily as needed for Cough for up to 7 days. [facility] butalbital- acetaminoph en-caff (ESGIC) 50-325-40 mg tablet 1 tablet 2021-05 08:15: 00 02-21 08:09 :00 No 1{tbl} 1 tablet, Oral, ONCE, 1 dose, On Sat02/21/22 at 0315, [place] [facility] butorphanol (STADOL) injection 1 mg 2021-05 08:15: 00 02-21 07:28 :00 No 1mg 1 mg, IV Push, ONCE, 1 dose, On Sat02/21/22 at 0315, Rout[facility] NaCl 0.9% (NS) bolus infusion 1,000 mL 2021-05 07:15: 00 02-21 08:40 :00 No 1000mL at 999 mL/hr, 1,000 mL, IV Infusion, ONCE, 1 dose, On Sat02/21/22 at 0215, [place] [facility] proMETHazin e (PHENERGAN) 12.5 mg in NaCl 0.9% (NS) 50 mL IV piggyback 2021-05 06:30: 00 02-21 06:38 :00 No 12.5mg 12.5 mg, IV Piggyback, ONCE, 1 dose, On Sat02/21/22 at 0130, [place] [facility] dexamethaso ne sod phos PF injection 10 mg 2021-05 06:30: 00 02-21 06:38 :00 No 10mg 10 mg, Slow IV Push, ONCE, 1 dose, On Sat02/21/22 at 0130, 1 mL [facility] ketorolac (TORADOL) injection 15 mg 2021-05 06:30: 00 02-21 06:38 :00 No 15mg 15 mg, Slow IV Push, ONCE, 1 dose, On Sat02/21/22 at 0130, [place] [facility] diphenhydrA MINE (BENADRYL) injection 25 mg 2021-05 06:30: 00 02-21 06:38 :00 No 25mg 25 mg, Slow IV Push, ONCE, 1 dose, On Sat02/21/22 at 0130, STAT [facility] FENTanyl PF (SUBLIMAZE (PF)) injection 50 mcg 2021-05 20:30: 00 02-18 19:44 :00 No 50ug 50 mcg, Slow IV Push, ONCE, 1 dose, On Sat02/18/22 at 1530, Routine [facility] ketorolac (TORADOL) injection 30 mg 2021-05 20:15: 00 02-18 20:09 :00 No 30mg 30 mg, Slow IV Push, ONCE, 1 dose, On [place] 02/18/22 at 1515, [facility] iopamidol (ISOVUE 370-500 mL) injection 60 mL 2021-05 19:30: 00 02-18 17:30 :00 No [id number] 60mL 60 mL, Intravenou s, ONCE, 1 dose, On [place] 02/18/22 at 1430, Routine [facility] proMETHazin e (PHENERGAN) 12.5 mg in NaCl 0.9% (NS) 50 mL IV piggyback 2021-05 18:15: 00 02-18 18:19 :00 No 12.5mg 12.5 mg, IV Piggyback, ONCE, 1 dose, On [place] 02/18/22 at 1315, [facility] FENTanyl PF (SUBLIMAZE (PF)) injection 50 mcg 2021-05 18:00: 00 02-18 17:26 :00 No 50ug 50 mcg, Slow IV Push, ONCE, 1 dose, On [place] 02/18/22 at 1300, Routine [facility] ondansetron (ZOFRAN (PF)) injection 4 mg 2021-05 17:15: 00 02-18 17:27 :00 No 4mg 4 mg, Slow IV Push, ONCE, 1 dose, On [place] 02/18/22 at 1215, [facility] morpHINE (2 mg/mL) injection 4 mg 01-18 15:15: 00 01-18 14:49 :00 No 4mg 4 mg, Slow IV Push, ONCE, 1 dose, On [place] 01/18/22 at 1015, STAT [facility] ondansetron (ZOFRAN (PF)) injection 4 mg 01-18 13:30: 00 01-18 13:33 :00 No 4mg 4 mg, Slow IV Push, ONCE, 1 dose, On [place] 01/18/22 at 0830, [facility] morpHINE (4 mg/mL) injection 4 mg 01-18 13:30: 00 01-18 13:34 :00 No 4mg 4 mg, Slow IV Push, ONCE, 1 dose, On [place] 01/18/22 at 0830, STAT [facility] morpHINE (4 mg/mL) injection 4 mg 01-18 12:30: 00 01-18 11:39 :00 No 4mg 4 mg, Slow IV Push, ONCE, 1 dose, On [place] 01/18/22 at 0730, STAT [facility] famotidine (PEPCID (PF)) injection 20 mg 01-18 11:30: 00 01-18 10:52 :00 No 20mg 20 mg, Slow IV Push, ONCE, 1 dose, On [place] 01/18/22 at 0630, [facility] ondansetron (ZOFRAN (PF)) injection 4 mg 01-18 11:30: 00 01-18 10:52 :00 No 4mg 4 mg, Slow IV Push, ONCE, 1 dose, On [place] 01/18/22 at 0630, [facility] iodixanoL (VISIPAQUE 270-150 mL) injection 80 mL 01-18 11:21: 00 01-18 11:15 :00 No [id number] 80mL 80 mL, Intravenou s, ONCE, 1 dose, On [place] 01/18/22 at 0630, Routine [facility] NaCl 0.9% (NS) bolus infusion 1,000 mL 01-18 11:15: 00 01-18 12:59 :00 No 1000mL at 999 mL/hr, 1,000 mL, IV Infusion, ONCE, 1 dose, On [place] 01/18/22 at 0615, [facility] morpHINE (4 mg/mL) injection 4 mg 01-18 10:45: 00 01-18 10:52 :00 No 4mg 4 mg, Slow IV Push, ONCE, 1 dose, On [place] 01/18/22 at 0545, STAT [facility] traMADoL 50 mg tablet 01-18 00:00: 00 02-27 00:00 :00 No [id number] 50mg Take 1 tablet by mouth every 6 (six) hours as needed for Pain (scale 7-10). Indication s: acute pain [facility] ondansetron 4 mg disintegrat ing tablet 01-18 00:00: 00 02-27 00:00 :00 No [id number] 4mg Take 1 tablet by mouth every 8 (eight) hours as needed for Nausea and Vomiting (N/V). [facility] ibuprofen 600 mg tablet 01-18 00:00: 00 02-27 00:00 :00 No [id number] 600mg Take 1 tablet by mouth every 6 (six) hours as needed for Pain (scale 4-6). [facility] predniSONE 20 mg tablet 01-16 00:00: 00 01-24 04:59 :00 No [id number] 40mg Take 2 tablets by mouth in the morning for 7 days. [facility] morpHINE (4 mg/mL) injection 4 mg 01-15 16:15: 00 01-15 15:28 :00 No 4mg 4 mg, Slow IV Push, ONCE, 1 dose, On Sat01/15/22 at 1115, [facility] proMETHazin e (PHENERGAN) 12.5 mg in NaCl 0.9% (NS) 50 mL IV piggyback 01-15 15:30: 00 01-15 15:28 :00 No 12.5mg 12.5 mg, IV Piggyback, ONCE, 1 dose, On Sat01/15/22 at 1030, [facility] NaCl 0.9% (NS) bolus infusion 1,000 mL 01-15 15:00: 00 01-15 15:38 :00 No 1000mL at 999 mL/hr, 1,000 mL, IV Infusion, ONCE, 1 dose, On Sat01/15/22 at 1000, [facility] morpHINE (4 mg/mL) injection 4 mg 01-15 15:00: 00 01-15 14:37 :00 No 4mg 4 mg, Slow IV Push, ONCE, 1 dose, On Sat01/15/22 at 1000, [facility] ondansetron (ZOFRAN (PF)) injection 8 mg 01-15 14:15: 00 01-15 14:37 :00 No 8mg 8 mg, Slow IV Push, ONCE, 1 dose, On Sat01/15/22 at 0915, [facility] dexamethaso ne sod phos PF injection 10 mg 01-15 14:15: 00 01-15 14:37 :00 No 10mg 10 mg, Slow IV Push, ONCE, 1 dose, On Sat01/15/22 at 0915, 1 mL [facility] proMETHazin e 25 mg tablet 01-15 00:00: 00 02-27 00:00 :00 No [id number] 25mg Take 1 tablet by mouth every 6 (six) hours as needed for Nausea and Vomiting (N/V). [facility] ondansetron (ZOFRAN-ODT ) disintegrat ing tablet 4 mg 01-09 01:45: 00 01-09 00:56 :00 No 4mg 4 mg, Oral, ONCE, 1 dose, On Sat01/08/22 at 2045, Routine [facility] HYDROcodone -acetaminop hen (NORCO 5) 5-325 mg tablet 1 tablet 01-09 00:45: 00 01-09 00:37 :00 No 1{tbl} 1 tablet, Oral, ONCE, 1 dose, On Sat01/08/22 at 1945, [facility] diphenhydrA MINE (BENADRYL) injection 25 mg 01-08 23:45: 00 01-08 23:51 :00 No 25mg 25 mg, Slow IV Push, ONCE, 1 dose, On Sat01/08/22 at 1845, STAT [facility] dexamethaso ne sod phos PF injection 10 mg 01-08 23:45: 00 01-08 23:50 :00 No 10mg 10 mg, Slow IV Push, ONCE, 1 dose, On Sat01/08/22 at 1845, 1 mL [facility] ketorolac (TORADOL) injection 30 mg 01-08 23:45: 00 01-08 23:51 :00 No 30mg 30 mg, Slow IV Push, ONCE, 1 dose, On Sat01/08/22 at 1845, [place] [facility] acetaminoph en (TYLENOL ARTHRITIS PAIN) 650 mg CR tablet 01-08 00:00: 00 04-07 00:00 :00 No [id number] 650mg Take 1 tablet by mouth every 8 (eight) hours as needed for Pain. [facility] ondansetron 4 mg disintegrat ing tablet 01-08 00:00: 00 02-27 00:00 :00 No [id number] 4mg Take 1 tablet by mouth every 8 (eight) hours as needed for Nausea and Vomiting (N/V). [facility] ketorolac 10 mg tablet 01-08 00:00: 00 02-27 00:00 :00 No [id number] 10mg Take 1 tablet by mouth every 6 (six) hours as needed for Pain (scale 4-6) or Pain (scale 7-10). [facility] metaxalone (SKELAXIN) 800 mg tablet 01-08 00:00: 00 02-27 00:00 :00 No [id number] 800mg Take 1 tablet by mouth in the morning and 1 tablet at noon and 1 tablet in the evening. [facility] metroNIDAZO LE 500 mg tablet 12-18 00:00: 00 02-27 00:00 :00 No 500mg Take 1 tablet by mouth every 12 (twelve) hours. [facility] trazodone/d ietary supp. no.8 (TRAZAMINE ORAL) 12-12 15:08: 46 12-12 00:00 :00 No Take by mouth. [facility] diphenhydrA MINE 25 mg capsule 12-12 13:03: 04 Yes 25mg Take 25 mg by mouth every 6 (six) hours as needed for Allergies. [facility] carbamazepi ne (TEGRETOL ORAL) 12-12 13:03: 04 Yes Take by mouth. [facility] traZODone 50 mg tablet 12-12 00:00: 00 02-27 00:00 :00 No [id number] 50mg Take 1 tablet by mouth at bedtime. [facility] SERTraline (ZOLOFT) 50 mg tablet 12-12 00:00: 00 02-27 00:00 :00 No [id number] 50mg Take 1 tablet by mouth in the morning. [facility] sulfamethox azole-trime thoprim (BACTRIM DS) 800-160 mg per tablet 12-12 00:00: 00 12-16 04:59 :00 No [id number] 1{tbl} Take 1 tablet by mouth in the morning and 1 tablet in the evening. Do all this for 3 days. [facility] ibuprofen 600 mg tablet 11-24 00:00: 00 02-27 00:00 :00 No [id number] 600mg Take 1 tablet by mouth every 6 (six) hours as needed for Pain (scale 4-6). [facility] acetaminoph en-codeine 300-30 mg tablet 11-24 00:00: 00 12-12 00:00 :00 No [id number] 1{tbl} Take 1 tablet by mouth every 4 (four) hours as needed for Pain (scale 4-6). Indication s: acute pain [facility] bromphenira mine-pseudo ephedrine-D M (BROMFED DM) 2-30-10 mg/5 mL syrup 11-18 00:00: 00 03-24 00:00 :00 No [id number] 5mL Take 5 mL by mouth 4 (four) times daily as needed for Congestion /Allergies or Cough. [facility] naproxen 500 mg tablet 11-18 00:00: 00 02-27 00:00 :00 No [id number] 500mg Take 1 tablet by mouth every 8 (eight) hours as needed for Pain (scale 4-6). [facility] cyclobenzap rine 10 mg tablet 11-18 00:00: 00 02-27 00:00 :00 No [id number] 10mg Take 1 tablet by mouth at bedtime as needed for Muscle Spasms. [facility] ibuprofen 100 mg/5 mL oral suspension 10-25 00:00: 00 02-27 00:00 :00 No [id number] 605mg Take 30.25 mL by mouth every 6 (six) hours as needed for Pain (scale 4-6) or Temp > 38.5 C. [facility] acetaminoph en 160 mg/5 mL liquid 10-25 00:00: 00 12-12 00:00 :00 No [id number] 608mg Take 19 mL by mouth every 6 (six) hours as needed for Fever. [facility] DULoxetine 60 mg capsule 10-06 00:00: 00 02-27 00:00 :00 No [facility] traZODone 50 mg tablet 10-06 00:00: 00 12-12 00:00 :00 No [facility] mometasone 50 mcg/actuati on nasal spray 09-28 00:00: 00 02-27 00:00 :00 No [id number] 1{spray } Use 1 [place] in each nostril 2 (two) times daily. [facility] cetirizine (ZYRTEC) 10 mg tablet 16 00:00: 00 02-27 00:00 :00 No [id number] 10mg Take 1 tablet by mouth daily. [facility] DULoxetine 30 mg capsule 09-18 00:00: 00 02-27 00:00 :00 No [facility] gabapentin 300 mg capsule 09 00:00: 02-27 00:00 :00 No [facility] ondansetron 4 mg tablet 09-18 00:00: 00 02-27 00:00 :00 No [facility] amLODIPine 5 mg tablet 09-01 00:00: 00 02-27 00:00 :00 No 5mg Take 5 mg by mouth. [facility] buPROPion XL 150 mg 24 hr tablet 08-30 00:00: 02-27 00:00 :00 No 150mg Take 150 mg by mouth. [facility] proMETHazin e 25 mg tablet 08-15 00:00: 00 09-12 00:00 :00 No [id number] 25mg Take 1 tablet by mouth every 6 (six) hours as needed for Nausea and Vomiting (N/V). [facility] traMADoL 50 mg tablet 08-15 00:00: 09-12 00:00 :00 No [id number] 50mg Take 1 tablet by mouth every 6 (six) hours as needed (pain). Indication s: acute pain [facility] cyclobenzap rine 10 mg tablet 08-07 00:00: 00 08-22 04:59 :00 No [id number] 10mg Take 1 tablet by mouth 3 (three) times daily for 14 days. [facility] ibuprofen 800 mg tablet 08-07 00:00: 00 08-22 04:59 :00 No [id number] 800mg Take 1 tablet by mouth every 6 (six) hours as needed for Pain (scale 1-3) for up to 14 days. [facility] diclofenac 75 mg EC tablet 08-01 00:00: 00 09-12 00:00 :00 No [facility] orphenadrin e 100 mg SR tablet 08-01 00:00: 09-12 00:00 :00 No [facility] divalproex 125 mg EC tablet 3-11 00:00: 00 09-12 00:00 :00 No [id number] 125mg Take 1 tablet by mouth every 12 (twelve) hours. [facility] divalproex Sprinkles 125 mg SPRINKLE capsule 3-11 00:00: 00 09-12 00:00 :00 No [facility] ibuprofen 600 mg tablet 3-07 00:00: 00 08-01 04:59 :00 No [id number] 600mg Take 1 tablet by mouth every 6 (six) hours as needed for Temp > 38.5 C for up to 14 days. [facility] acetaminoph en-codeine 300-30 mg tablet 06-11 00:00: 00 09-12 00:00 :00 No TAKE 1 TABLET BY MOUTH EVERY 4 HOURS NEEDED FOR PAIN FOR 2 DAYS [facility] fluticasone propionate 110 mcg/actuati on inhaler - 00:00: 00 09-28 00:00 :00 No [id number] 2{puff} Inhale 2 Puffs every 12 (twelve) hours. [facility] benzonatate (TESSALON PERLES) 100 mg capsule 1-13 00:00: 00 09-25 00:00 :00 No [id number] 100mg Take 1 capsule by mouth every 8 (eight) hours as needed for Cough. [facility] carvediloL 25 mg tablet 2020-05 00:00: 00 02-27 00:00 :00 No 25mg Take 1 tablet by mouth 2 (two) times daily with meals. [facility] losartan 50 mg tablet 2020-05 00:00: 00 02-27 00:00 :00 No 50mg Take 1 tablet by mouth 2 (two) times daily. [facility] proMETHazin e 25 mg tablet 2020-05 00:00: 00 09-12 00:00 :00 No [facility] methocarbam oL (ROBAXIN) 500 mg tablet 2020-05 2-21 00:00: 00 05-25 00:00 :00 No [id number] 500mg Take 1 tablet by mouth every 6 (six) hours as needed (MUSCLE SPASM). [facility] vitamin B-12 (VITAMIN B-12) 500 mcg tablet 2020-05 00:00: 00 09-12 00:00 :00 No [id number] 500ug Take 1 tablet by mouth daily. [facility] methylPREDN ISolone 4 mg tablets 2020-05 00:00: 00 05-25 00:00 :00 No [id number] Follow package directions [facility] fluticasone propion-chel meteroL 115-21 mcg/actuati on inhaler 02-09 00:00: 00 05-25 00:00 :00 No [id number] 2{puff} Inhale 2 Puffs 2 (two) times daily. Rinse mouth after each use. [facility] albuterol 2.5 mg /3 mL (0.083 %) nebulizer solution 02-09 00:00: 00 05-25 00:00 :00 No [id number] 2.5mg Inhale 3 mL every 6 (six) hours as needed for Wheezing or Shortness of Breath. [facility] methocarbam oL (ROBAXIN) 500 mg tablet 02-09 00:00: 00 05-02 00:00 :00 No [id number] 500mg Take 1 tablet by mouth every 6 (six) hours as needed (MUSCLE SPASM). [facility] bromphenira mine-pseudo ephedrine-D M (BROMFED DM) 2-30-10 mg/5 mL syrup 01-31 00:00: 00 02-09 00:00 :00 No [id number] 5mL Take 5 mL by mouth 4 (four) times daily as needed for Cough. [facility] methylPREDN ISolone (MEDROL, ANABELA,) 4 mg tablets 01-20 00:00: 02-09 00:00 :00 No [id number] Take by mouth SEE-INSTRU CTIONS. follow package directions [facility] albuterol 90 mcg/actuati on inhaler 01-12 00:00: 00 05-25 00:00 :00 No [id number] 2{puff} Inhale 2 Puffs every 4 (four) hours as needed for Wheezing or Shortness of Breath. [facility] benzonatate 100 mg capsule 01-12 00:00: 00 02-19 00:00 :00 No [id number] 100mg Take 1 capsule by mouth 3 (three) times daily as needed for Cough. [facility] losartan 50 mg tablet 12-23 00:00: 00 02-09 00:00 :00 No 50mg Take 1 tablet by mouth 2 (two) times daily. [facility] topiramate 25 mg tablet 11-22 00:00: 00 12-26 00:00 :00 No 25mg Take 1 tablet by mouth 2 (two) times daily. [facility] OXcarbazepi ne 150 mg tablet 11-21 00:00: 00 02-09 00:00 :00 No [facility] FLUoxetine 40 mg capsule 11-21 00:00: 00 12-26 00:00 :00 No [facility] traZODone 100 mg tablet 11-21 00:00: 00 12-26 00:00 :00 No [facility] [facility]ine 20 mg tablet -10 00:00: 00 12-26 00:00 :00 No [id number] 20mg Take 1 tablet by mouth 4 (four) times daily. [facility] proMETHazin e 25 mg tablet 6-10 00:00: 00 12-26 00:00 :00 No [id number] 25mg Take 1 tablet by mouth every 6 (six) hours as needed for Nausea and Vomiting (N/V). [facility] acetaminoph en-codeine 300-30 mg tablet 6-05 00:00: 00 12-26 00:00 :00 No TAKE 2 TABLETS BY MOUTH EVERY 6 HOURS NEEDED FOR PAIN [facility] oxybutynin (DITROPAN XL) 10 mg 24 hr tablet 5-30 00:00: 00 12-26 00:00 :00 No [id number] 10mg Take 1 tablet by mouth daily. [facility] ondansetron (ZOFRAN ODT) 4 mg disintegrat ing tablet 30 00:00: 00 12-26 00:00 :00 No [id number] 4mg Take 1 tablet by mouth every 8 (eight) hours as needed for Nausea and Vomiting (N/V). [facility] ciprofloxac in HCl 500 mg tablet 30 00:00: 00 11-22 00:00 :00 No [id number] 500mg Take 1 tablet by mouth 2 (two) times daily. [facility] predniSONE 20 mg tablet 25 00:00: 00 11-22 00:00 :00 No [id number] 20mg Take 1 tablet by mouth daily. Days 1-2: 3 pills (60 mg). Days 3-4: 2 pills (40 mg). Days 5-6: 1 pill (20 mg). Days 7-8: 1/2 pill (10 mg). Then stop [facility] mupirocin 2 % ointment 5-20 00:00: 00 12-26 00:00 :00 No [id number] Apply to both nostrils at bedtime [facility] naproxen sodium (ANAPROX DS) 550 mg tablet 19 00:00: 00 12-26 00:00 :00 No [id number] 550mg Take 1 tablet by mouth 2 (two) times daily with meals. [facility] losartan 25 mg tablet 07 00:00: 00 12-22 00:00 :00 No 25mg Take 1 tablet by mouth 2 (two) times daily. [facility] nadoloL 20 mg tablet 09-16 00:00: 12-22 00:00 :00 No [id number] Please take Nadalol 40 mg QAM [facility] LOESTRIN FE (LOESTRIN FE 1/20) 1 mg-20 mcg (21)/75 mg (7) tablet 09-06 00:00: 00 02-09 00:00 :00 No [id number] 1{tbl} Take 1 tablet by mouth daily. [facility] FLUoxetine 20 mg capsule 09-06 00:00: 00 11-22 00:00 :00 No [id number] 20mg Take 1 capsule by mouth daily. [facility] traZODone 50 mg tablet 09-06 00:00: 00 11-22 00:00 :00 No [id number] 50mg Take 1 tablet by mouth at bedtime. [facility] nadoloL 20 mg tablet 08-31 00:00: 00 09-16 00:00 :00 No [id number] Please take Nadalol 40 mg QAM and 20 mg QPM [facility] methocarbam oL (ROBAXIN) 500 mg tablet 08-18 00:00: 00 09-30 00:00 :00 No [id number] 500mg Take 1 tablet by mouth every 6 (six) hours as needed (MUSCLE SPASM). [facility] traMADoL (ULTRAM) 50 mg tablet 08-18 00:00: 00 09-30 00:00 :00 No [id number] 50mg Take 1 tablet by mouth every 6 (six) hours as needed for Pain (scale 7-10). Indication s: acute pain [facility] ibuprofen 800 mg tablet 08-14 00:00: 00 11-22 00:00 :00 No TAKE 1 TABLET BY MOUTH EVERY 12 HOURS NEEDED FOR PAIN [facility] ondansetron (ZOFRAN ODT) 4 mg disintegrat ing tablet 08-01 00:00: 00 09-30 00:00 :00 No [id number] 4mg Take 1 tablet by mouth every 8 (eight) hours as needed for Nausea and Vomiting (N/V). [facility] ketorolac 10 mg tablet 08-01 00:00: 00 09-30 00:00 :00 No [id number] 10mg Take 1 tablet by mouth every 6 (six) hours as needed for Pain (scale 4-6). [facility] ciprofloxac in HCl 250 mg tablet 08-01 00:00: 00 09-30 00:00 :00 No [id number] 250mg Take 1 tablet by mouth 2 (two) times daily. [facility] lidocaine 5 % (700 mg/patch) patch 07-22 00:00: 00 09-30 00:00 :00 No [id number] 1{patch } Apply 1 Patch to area(s) every 24 (twenty-fo ur) hours as needed for Localized pain. [facility] topiramate 25 mg tablet 05-17 00:00: 00 11-22 00:00 :00 No 25mg Take 1 tablet by mouth 2 (two) times daily. [facility] metoprolol succinate XL 25 mg 24 hr tablet 2019-05 00:00: 00 06-15 00:00 :00 No [id number] 12.5mg Take 0.5 tablets by mouth 2 (two) times daily for 90 days. [facility] FLUoxetine 20 mg capsule 2019-05 00:00: 00 09-06 00:00 :00 No 20mg Take 20 mg by mouth daily. [facility] norgestimat e-ethinyl estradiol 0.25-35 mg-mcg per tablet 11-17 00:00: 00 04-15 00:00 :00 No [id number] 1{tbl} Take 1 tablet by mouth daily. [facility] buPROPion XL (WELLBUTRIN XL) 150 mg 24 hr tablet 08-12 00:00: 01-04 00:00 :00 No [id number] 150mg Take 1 tablet by mouth daily. [facility] acetaminoph en 325 mg tablet 07-22 00:00: 01-04 00:00 :00 No [id number] 650mg Take 2 tablets by mouth every 6 (six) hours as needed for Pain (scale 1-3) or Pain (scale 4-6). [facility] vitamin w/FA tablet 07-22 00:00: 01-04 00:00 :00 No [id number] 1{tbl} Take 1 tablet by mouth daily. [facility] docusate calcium 240 mg capsule 07-22 00:00: 01-04 00:00 :00 No [id number] 240mg Take 1 capsule by mouth once daily as needed for Constipati on. [facility] ferrous sulfate 325 mg (65 mg iron) tablet 07-22 00:00: 01-04 00:00 :00 No [id number] 325mg Take 1 tablet by mouth 2 (two) times daily. [facility] ibuprofen 600 mg tablet 07-22 00:00: 01-04 00:00 :00 No [id number] 600mg Take 1 tablet by mouth every 6 (six) hours as needed (Pain). Take with food or milk. [facility] ALBUTEROL 90 mcg/actuati on inhaler 1-14 00:00: 05-01 00:00 :00 No [id number] 103 INHALE 2 PUFFS BY MOUTH EVERY 6 HOURS NEEDED FOR WHEEZING FOR SHORTNESS OF BREATH [facility] buPROPion SR (WELLBUTRIN SR) 150 mg SR tablet 05-21 00:00: 01-04 00:00 :00 No [id number] 150mg Take 1 tablet by mouth 2 (two) times daily. [facility] busPIRone 10 mg tablet - 00:00: 01-04 00:00 :00 No [id number] 109 10mg Take 1 tablet by mouth 3 (three) times daily. [facility] Immunizations Ordered Immunization Name Filled Immunization Name Date Status Comments Source Influenza Virus Vaccine Quad IM, Preserv and ABX Free 6 MO-64 YRS 2022-02-27 00:00:00 Completed [facility] Influenza Virus Vaccine Quad IM, Preserv and ABX Free 6 MO-64 YRS 2022-02-27 00:00:00 Completed [facility] Influenza Virus Vaccine Quad IM, Preserv and ABX Free 6 MO-64 YRS 2022-02-27 00:00:00 Completed [facility] Influenza Virus Vaccine Quad IM, Preserv and ABX Free 6 MO-64 YRS 2022-02-27 00:00:00 Completed [facility] Influenza Virus Vaccine Quad IM, Preserv and ABX Free 6 MO-64 YRS 2022-02-27 00:00:00 Completed [facility] Influenza Virus Vaccine Quad IM, Preserv and ABX Free 6 MO-64 YRS 2022-02-27 00:00:00 Completed [facility] Influenza Virus Vaccine Quad IM, Preserv and ABX Free 6 MO-64 YRS 2022-02-27 00:00:00 Completed [facility] Influenza Virus Vaccine Quad IM, Preserv and ABX Free 6 MO-64 YRS 2022-02-27 00:00:00 Completed [facility] Influenza Virus Vaccine Quad IM, Preserv and ABX Free 6 MO-64 YRS 2022-02-27 00:00:00 Completed [facility] Influenza Virus Vaccine Quad IM, Preserv and ABX Free 6 MO-64 YRS 2022-02-27 00:00:00 Completed [facility] Influenza Virus Vaccine Quad IM, Preserv and ABX Free 6 MO-64 YRS 2022-02-27 00:00:00 Completed [facility] Influenza Virus Vaccine Quad IM, Preserv and ABX Free 6 MO-64 YRS 2022-02-27 00:00:00 Completed [facility] Influenza Virus Vaccine Quad IM, Preserv and ABX Free 6 MO-64 YRS 2022-02-27 00:00:00 Completed [facility] Influenza Virus Vaccine Quad IM, Preserv and ABX Free 6 MO-64 YRS 2022-02-27 00:00:00 Completed [facility] Influenza Virus Vaccine Quad IM, Preserv and ABX Free 6 MO-64 YRS 2022-02-27 00:00:00 Completed [facility] Influenza Virus Vaccine Quad IM, Preserv and ABX Free 6 MO-64 YRS 2022-02-27 00:00:00 Completed [facility] Influenza Virus Vaccine Quad IM, Preserv and ABX Free 6 MO-64 YRS 2022-02-27 00:00:00 Completed [facility] Influenza Virus Vaccine Quad IM, Preserv and ABX Free 6 MO-64 YRS 2022-02-27 00:00:00 Completed [facility] Influenza Virus Vaccine Quad IM, Preserv and ABX Free 6 MO-64 YRS 2022-02-27 00:00:00 Completed [facility] Influenza Virus Vaccine Quad IM, Preserv and ABX Free 6 MO-64 YRS 2022-02-27 00:00:00 Completed [facility] Influenza Virus Vaccine Quad IM, Preserv and ABX Free 6 MO-64 YRS 2022-02-27 00:00:00 Completed [facility] Influenza Virus Vaccine Quad IM, Preserv and ABX Free 6 MO-64 YRS 2022-02-27 00:00:00 Completed [facility] Influenza Virus Vaccine Quad IM, Preserv and ABX Free 6 MO-64 YRS 2022-02-27 00:00:00 Completed [facility] Influenza Virus Vaccine Quad IM, Preserv and ABX Free 6 MO-64 YRS 2022-02-27 00:00:00 Completed [facility] Influenza Virus Vaccine Quad IM, Preserv and ABX Free 6 MO-64 YRS 2022-02-27 00:00:00 Completed [facility] Influenza Virus Vaccine Quad IM, Preserv and ABX Free 6 MO-64 YRS 2022-02-27 00:00:00 Completed [facility] Influenza Virus Vaccine Quad IM, Preserv and ABX Free 6 MO-64 YRS 2022-02-27 00:00:00 Completed [facility] Influenza Virus Vaccine Quad IM, Preserv and ABX Free 6 MO-64 YRS 2022-02-27 00:00:00 Completed [facility] Influenza Virus Vaccine Quad IM, Preserv and ABX Free 6 MO-64 YRS 2022-02-27 00:00:00 Completed [facility] Influenza Virus Vaccine Quad IM, Preserv and ABX Free 6 MO-64 YRS 2022-02-27 00:00:00 Completed [facility] Influenza Virus Vaccine Quad IM, Preserv and ABX Free 6 MO-64 YRS 2022-02-27 00:00:00 Completed [facility] Influenza Virus Vaccine Quad IM, Preserv and ABX Free 6 MO-64 YRS 2022-02-27 00:00:00 Completed [facility] Influenza Virus Vaccine Quad IM, Preserv and ABX Free 6 MO-64 YRS 2022-02-27 00:00:00 Completed [facility] Influenza Virus Vaccine Quad IM, Preserv and ABX Free 6 MO-64 YRS 2022-02-27 00:00:00 Completed [facility] Influenza Virus Vaccine Quad IM, Preserv and ABX Free 6 MO-64 YRS 2022-02-27 00:00:00 Completed [facility] Influenza Virus Vaccine Quad IM, Preserv and ABX Free 6 MO-64 YRS 2022-02-27 00:00:00 Completed [facility] Influenza Virus Vaccine Quad IM, Preserv and ABX Free 6 MO-64 YRS 2022-02-27 00:00:00 Completed [facility] Influenza Virus Vaccine Quad IM, Preserv and ABX Free 6 MO-64 YRS 2022-02-27 00:00:00 Completed [facility] Influenza Virus Vaccine Quad IM, Preserv and ABX Free 6 MO-64 YRS 2022-02-27 00:00:00 Completed [facility] Influenza Virus Vaccine Quad IM, Preserv and ABX Free 6 MO-64 YRS 2022-02-27 00:00:00 Completed [facility] Influenza Virus Vaccine Quad IM, Preserv and ABX Free 6 MO-64 YRS 2022-02-27 00:00:00 Completed [facility] Influenza Virus Vaccine Quad IM, Preserv and ABX Free 6 MO-64 YRS (FLUCELVAX) 2022-02-27 00:00:00 Completed [facility] Influenza Virus Vaccine Quad IM, Preserv and ABX Free 6 MO-64 YRS (FLUCELVAX) 2022-02-27 00:00:00 Completed [facility] Influenza Virus Vaccine Quad IM, Preserv and ABX Free 6 MO-64 YRS (FLUCELVAX) 2022-02-27 00:00:00 Completed [facility] Influenza Virus Vaccine Quad .5 mL IM 6+ MO 2022-02-21 00:00:00 Completed [facility] Influenza Virus Vaccine Quad .5 mL IM 6+ MO 2022-02-21 00:00:00 Completed [facility] Influenza Virus Vaccine Quad .5 mL IM 6+ MO 2022-02-21 00:00:00 Completed [facility] Influenza Virus Vaccine Quad .5 mL IM 6+ MO 2022-02-21 00:00:00 Completed [facility] Influenza Virus Vaccine Quad .5 mL IM 6+ MO 2022-02-21 00:00:00 Completed [facility] Influenza Virus Vaccine Quad .5 mL IM 6+ MO 2022-02-21 00:00:00 Completed [facility] Influenza Virus Vaccine Quad .5 mL IM 6+ MO 2022-02-21 00:00:00 Completed [facility] Influenza Virus Vaccine Quad .5 mL IM 6+ MO 2022-02-21 00:00:00 Completed [facility] Influenza Virus Vaccine Quad .5 mL IM 6+ MO 2022-02-21 00:00:00 Completed [facility] Influenza Virus Vaccine Quad .5 mL IM 6+ MO 2022-02-21 00:00:00 Completed [facility] Influenza Virus Vaccine Quad .5 mL IM 6+ MO 2022-02-21 00:00:00 Completed [facility] Influenza Virus Vaccine Quad .5 mL IM 6+ MO 2022-02-21 00:00:00 Completed [facility] Influenza Virus Vaccine Quad .5 mL IM 6+ MO (FLUZONE/FLULAVAL/F LUARIX) 2022-02-21 00:00:00 Completed [facility] Influenza Virus Vaccine Quad .5 mL IM 6+ MO (FLUZONE/FLULAVAL/F LUARIX) 2022-02-21 00:00:00 Completed [facility] Influenza Virus Vaccine Quad .5 mL IM 6+ MO (FLUZONE/FLULAVAL/F LUARIX) 2022-02-21 00:00:00 Completed [facility] Influenza Virus Vaccine 2021-06-11 00:00:00 Completed [facility] Influenza Virus Vaccine 2021-06-11 00:00:00 Completed [facility] Influenza Virus Vaccine 2021-06-11 00:00:00 Completed [facility] Influenza Virus Vaccine 2021-06-11 00:00:00 Completed [facility] Influenza Virus Vaccine 2021-06-11 00:00:00 Completed [facility] Influenza Virus Vaccine 2021-06-11 00:00:00 Completed [facility] Influenza Virus Vaccine 2021-06-11 00:00:00 Completed [facility] Influenza Virus Vaccine 2021-06-11 00:00:00 Completed [facility] Influenza Virus Vaccine 2021-06-11 00:00:00 Completed [facility] Influenza Virus Vaccine 2021-06-11 00:00:00 Completed [facility] Influenza Virus Vaccine 2021-06-11 00:00:00 Completed [facility] Influenza Virus Vaccine 2021-06-11 00:00:00 Completed [facility] Influenza Virus Vaccine 2021-06-11 00:00:00 Completed [facility] Influenza Virus Vaccine 2021-06-11 00:00:00 Completed [facility] Influenza Virus Vaccine 2021-06-11 00:00:00 Completed [facility] Influenza Virus Vaccine 2021-06-11 00:00:00 Completed [facility] Influenza Virus Vaccine 2021-06-11 00:00:00 Completed [facility] Influenza Virus Vaccine 2021-06-11 00:00:00 Completed [facility] Influenza Virus Vaccine 2021-06-11 00:00:00 Completed [facility] Influenza Virus Vaccine 2021-06-11 00:00:00 Completed [facility] Influenza Virus Vaccine 2021-06-11 00:00:00 Completed [facility] Influenza Virus Vaccine 2021-06-11 00:00:00 Completed [facility] Influenza Virus Vaccine 2021-06-11 00:00:00 Completed [facility] Influenza Virus Vaccine 2021-06-11 00:00:00 Completed [facility] Influenza Virus Vaccine 2021-06-11 00:00:00 Completed [facility] Influenza Virus Vaccine 2021-06-11 00:00:00 Completed [facility] Influenza Virus Vaccine 2021-06-11 00:00:00 Completed [facility] Influenza Virus Vaccine 2021-06-11 00:00:00 Completed [facility] Influenza Virus Vaccine 2021-06-11 00:00:00 Completed [facility] Influenza Virus Vaccine 2021-06-11 00:00:00 Completed [facility] Influenza Virus Vaccine 2021-06-11 00:00:00 Completed [facility] Influenza Virus Vaccine 2021-06-11 00:00:00 Completed [facility] Influenza Virus Vaccine 2021-06-11 00:00:00 Completed [facility] Influenza Virus Vaccine 2021-06-11 00:00:00 Completed [facility] Influenza Virus Vaccine 2021-06-11 00:00:00 Completed [facility] Influenza Virus Vaccine 2021-06-11 00:00:00 Completed [facility] Influenza Virus Vaccine 2021-06-11 00:00:00 Completed [facility] Influenza Virus Vaccine 2021-06-11 00:00:00 Completed [facility] Influenza Virus Vaccine 2021-06-11 00:00:00 Completed [facility] Influenza Virus Vaccine 2021-06-11 00:00:00 Completed [facility] Influenza Virus Vaccine 2021-06-11 00:00:00 Completed [facility] Influenza Virus Vaccine Quad .5 mL IM 6+ MO 2021-06-11 00:00:00 Completed [facility] Influenza Virus Vaccine 2021-06-11 00:00:00 Completed [facility] Influenza Virus Vaccine Quad .5 mL IM 6+ MO 2021-06-11 00:00:00 Completed [facility] Influenza Virus Vaccine 2021-06-11 00:00:00 Completed [facility] Influenza Virus Vaccine Quad .5 mL IM 6+ MO 2021-06-11 00:00:00 Completed [facility] Influenza Virus Vaccine 2021-06-11 00:00:00 Completed [facility] Influenza Virus Vaccine Quad .5 mL IM 6+ MO 2021-06-11 00:00:00 Completed [facility] Influenza Virus Vaccine 2021-06-11 00:00:00 Completed [facility] Influenza Virus Vaccine Quad .5 mL IM 6+ MO 2021-06-11 00:00:00 Completed [facility] Influenza Virus Vaccine 2021-06-11 00:00:00 Completed [facility] Influenza Virus Vaccine Quad .5 mL IM 6+ MO 2021-06-11 00:00:00 Completed [facility] Influenza Virus Vaccine 2021-06-11 00:00:00 Completed [facility] Influenza Virus Vaccine Quad .5 mL IM 6+ MO 2021-06-11 00:00:00 Completed [facility] Influenza Virus Vaccine 2021-06-11 00:00:00 Completed [facility] Influenza Virus Vaccine Quad .5 mL IM 6+ MO 2021-06-11 00:00:00 Completed [facility] Influenza Virus Vaccine 2021-06-11 00:00:00 Completed [facility] Influenza Virus Vaccine Quad .5 mL IM 6+ MO 2021-06-11 00:00:00 Completed [facility] Influenza Virus Vaccine 2021-06-11 00:00:00 Completed [facility] Influenza Virus Vaccine Quad .5 mL IM 6+ MO 2021-06-11 00:00:00 Completed [facility] Influenza Virus Vaccine 2021-06-11 00:00:00 Completed [facility] Influenza Virus Vaccine Quad .5 mL IM 6+ MO 2021-06-11 00:00:00 Completed [facility] Influenza Virus Vaccine 2021-06-11 00:00:00 Completed [facility] Influenza Virus Vaccine Quad .5 mL IM 6+ MO 2021-06-11 00:00:00 Completed [facility] Influenza Virus Vaccine 2021-06-11 00:00:00 Completed [facility] Influenza Virus Vaccine Quad .5 mL IM 6+ MO (FLUZONE/FLULAVAL/F LUARIX) 2021-06-11 00:00:00 Completed [facility] Influenza Virus Vaccine 2021-06-11 00:00:00 Completed [facility] Influenza Virus Vaccine Quad .5 mL IM 6+ MO (FLUZONE/FLULAVAL/F LUARIX) 2021-06-11 00:00:00 Completed [facility] Influenza Virus Vaccine 2021-06-11 00:00:00 Completed [facility] Influenza Virus Vaccine Quad .5 mL IM 6+ MO (FLUZONE/FLULAVAL/F LUARIX) 2021-06-11 00:00:00 Completed [facility] Influenza Virus Vaccine 2020-05-19 00:00:00 Completed [facility] Influenza Virus Vaccine 2020-05-19 00:00:00 Completed [facility] Influenza Virus Vaccine 2020-05-19 00:00:00 Completed [facility] Influenza Virus Vaccine 2020-05-19 00:00:00 Completed [facility] Influenza Virus Vaccine 2020-05-19 00:00:00 Completed [facility] Influenza Virus Vaccine 2020-05-19 00:00:00 Completed [facility] Influenza Virus Vaccine 2020-05-19 00:00:00 Completed [facility] Influenza Virus Vaccine 2020-05-19 00:00:00 Completed [facility] Influenza Virus Vaccine 2020-05-19 00:00:00 Completed [facility] Influenza Virus Vaccine 2020-05-19 00:00:00 Completed [facility] Influenza Virus Vaccine 2020-05-19 00:00:00 Completed [facility] Influenza Virus Vaccine 2020-05-19 00:00:00 Completed [facility] Influenza Virus Vaccine 2020-05-19 00:00:00 Completed [facility] Influenza Virus Vaccine 2020-05-19 00:00:00 Completed [facility] Influenza Virus Vaccine 2020-05-19 00:00:00 Completed [facility] Influenza Virus Vaccine 2020-05-19 00:00:00 Completed [facility] Influenza Virus Vaccine 2020-05-19 00:00:00 Completed [facility] Influenza Virus Vaccine 2020-05-19 00:00:00 Completed [facility] Influenza Virus Vaccine 2020-05-19 00:00:00 Completed [facility] Influenza Virus Vaccine 2020-05-19 00:00:00 Completed [facility] Influenza Virus Vaccine 2020-05-19 00:00:00 Completed [facility] Influenza Virus Vaccine 2020-05-19 00:00:00 Completed [facility] Influenza Virus Vaccine 2020-05-19 00:00:00 Completed [facility] Influenza Virus Vaccine 2020-05-19 00:00:00 Completed [facility] Influenza Virus Vaccine 2020-05-19 00:00:00 Completed [facility] Influenza Virus Vaccine 2020-05-19 00:00:00 Completed [facility] Influenza Virus Vaccine 2020-05-19 00:00:00 [facility] [facility] Influenza Virus Vaccine 2020-05-19 00:00:00 Completed [facility] Influenza Virus Vaccine 2020-05-19 00:00:00 Completed [facility] Influenza Virus Vaccine 2020-05-19 00:00:00 Completed [facility] Influenza Virus Vaccine 2020-05-19 00:00:00 Completed [facility] Influenza Virus Vaccine 2020-05-19 00:00:00 Completed [facility] Influenza Virus Vaccine 2020-05-19 00:00:00 Completed [facility] Influenza Virus Vaccine 2020-05-19 00:00:00 Completed [facility] Influenza Virus Vaccine 2020-05-19 00:00:00 Completed [facility] Influenza Virus Vaccine 2020-05-19 00:00:00 Completed [facility] Influenza Virus Vaccine 2020-05-19 00:00:00 Completed [facility] Influenza Virus Vaccine 2020-05-19 00:00:00 Completed [facility] Influenza Virus Vaccine 2020-05-19 00:00:00 Completed [facility] Influenza Virus Vaccine 2020-05-19 00:00:00 Completed [facility] Influenza Virus Vaccine 2020-05-19 00:00:00 Completed [facility] Influenza Virus Vaccine 2020-05-19 00:00:00 Completed [facility] Influenza Virus Vaccine 2020-05-19 00:00:00 Completed [facility] Influenza Virus Vaccine 2020-05-19 00:00:00 Completed [facility] Influenza Virus Vaccine 2020-05-19 00:00:00 Completed [facility] Influenza Virus Vaccine 2020-05-19 00:00:00 Completed [facility] Influenza Virus Vaccine 2020-05-19 00:00:00 Completed [facility] Influenza Virus Vaccine 2020-05-19 00:00:00 Completed [facility] Influenza Virus Vaccine 2020-05-19 00:00:00 Completed [facility] Influenza Virus Vaccine 2020-05-19 00:00:00 Completed [facility] Influenza Virus Vaccine 2020-05-19 00:00:00 Completed [facility] Influenza Virus Vaccine 2020-05-19 00:00:00 Completed [facility] Influenza Virus Vaccine 2020-05-19 00:00:00 Completed [facility] Influenza Virus Vaccine 2020-05-19 00:00:00 Completed [facility] Influenza Virus Vaccine 2020-05-19 00:00:00 Completed [facility] Influenza Virus Vaccine Recomb Quad IM, Preserv and ABX Free 18-64 YRS 2020-05-16 00:00:00 Completed [facility] Influenza Virus Vaccine Recomb Quad IM, Preserv and ABX Free 18-64 YRS 2020-05-16 00:00:00 Completed [facility] Influenza Virus Vaccine Recomb Quad IM, Preserv and ABX Free 18-64 YRS 2020-05-16 00:00:00 Completed [facility] Influenza Virus Vaccine Recomb Quad IM, Preserv and ABX Free 18-64 YRS 2020-05-16 00:00:00 Completed [facility] Influenza Virus Vaccine Recomb Quad IM, Preserv and ABX Free 18-64 YRS 2020-05-16 00:00:00 Completed [facility] Influenza Virus Vaccine Recomb Quad IM, Preserv and ABX Free 18-64 YRS 2020-05-16 00:00:00 Completed [facility] Influenza Virus Vaccine Recomb Quad IM, Preserv and ABX Free 18-64 YRS 2020-05-16 00:00:00 Completed [facility] Influenza Virus Vaccine Recomb Quad IM, Preserv and ABX Free 18-64 YRS 2020-05-16 00:00:00 Completed [facility] Influenza Virus Vaccine Recomb Quad IM, Preserv and ABX Free 18-64 YRS 2020-05-16 00:00:00 Completed [facility] Influenza Virus Vaccine Recomb Quad IM, Preserv and ABX Free 18-64 YRS 2020-05-16 00:00:00 Completed [facility] Influenza Virus Vaccine Recomb Quad IM, Preserv and ABX Free 18-64 YRS 2020-05-16 00:00:00 Completed [facility] Influenza Virus Vaccine Recomb Quad IM, Preserv and ABX Free 18-64 YRS 2020-05-16 00:00:00 Completed [facility] Influenza Virus Vaccine Recomb Quad IM, Preserv and ABX Free 18-64 YRS 2020-05-16 00:00:00 Completed [facility] Influenza Virus Vaccine Recomb Quad IM, Preserv and ABX Free 18-64 YRS 2020-05-16 00:00:00 Completed [facility] Influenza Virus Vaccine Recomb Quad IM, Preserv and ABX Free 18-64 YRS 2020-05-16 00:00:00 Completed [facility] Influenza Virus Vaccine Recomb Quad IM, Preserv and ABX Free 18-64 YRS 2020-05-16 00:00:00 Completed [facility] Influenza Virus Vaccine Recomb Quad IM, Preserv and ABX Free 18-64 YRS 2020-05-16 00:00:00 Completed [facility] Influenza Virus Vaccine Recomb Quad IM, Preserv and ABX Free 18-64 YRS 2020-05-16 00:00:00 Completed [facility] Influenza Virus Vaccine Recomb Quad IM, Preserv and ABX Free 18-64 YRS 2020-05-16 00:00:00 Completed [facility] Influenza Virus Vaccine Recomb Quad IM, Preserv and ABX Free 18-64 YRS 2020-05-16 00:00:00 Completed [facility] Influenza Virus Vaccine Recomb Quad IM, Preserv and ABX Free 18-64 YRS 2020-05-16 00:00:00 Completed [facility] Influenza Virus Vaccine Recomb Quad IM, Preserv and ABX Free 18-64 YRS 2020-05-16 00:00:00 Completed [facility] Influenza Virus Vaccine Recomb Quad IM, Preserv and ABX Free 18-64 YRS 2020-05-16 00:00:00 Completed [facility] Influenza Virus Vaccine Recomb Quad IM, Preserv and ABX Free 18-64 YRS 2020-05-16 00:00:00 Completed [facility] Influenza Virus Vaccine Recomb Quad IM, Preserv and ABX Free 18-64 YRS 2020-05-16 00:00:00 Completed [facility] Influenza Virus Vaccine Recomb Quad IM, Preserv and ABX Free 18-64 YRS 2020-05-16 00:00:00 Completed [facility] Influenza Virus Vaccine Recomb Quad IM, Preserv and ABX Free 18-64 YRS 2020-05-16 00:00:00 Completed [facility] Influenza Virus Vaccine Recomb Quad IM, Preserv and ABX Free 18-64 YRS 2020-05-16 00:00:00 Completed [facility] Influenza Virus Vaccine Recomb Quad IM, Preserv and ABX Free 18-64 YRS 2020-05-16 00:00:00 Completed [facility] Influenza Virus Vaccine Recomb Quad IM, Preserv and ABX Free 18-64 YRS 2020-05-16 00:00:00 Completed [facility] Influenza Virus Vaccine Recomb Quad IM, Preserv and ABX Free 18-64 YRS 2020-05-16 00:00:00 Completed [facility] Influenza Virus Vaccine Recomb Quad IM, Preserv and ABX Free 18-64 YRS 2020-05-16 00:00:00 Completed [facility] Influenza Virus Vaccine Recomb Quad IM, Preserv and ABX Free 18-64 YRS 2020-05-16 00:00:00 Completed [facility] Influenza Virus Vaccine Recomb Quad IM, Preserv and ABX Free 18-64 YRS 2020-05-16 00:00:00 Completed [facility] Influenza Virus Vaccine Recomb Quad IM, Preserv and ABX Free 18-64 YRS 2020-05-16 00:00:00 Completed [facility] Influenza Virus Vaccine Recomb Quad IM, Preserv and ABX Free 18-64 YRS 2020-05-16 00:00:00 Completed [facility] Influenza Virus Vaccine Recomb Quad IM, Preserv and ABX Free 18-64 YRS 2020-05-16 00:00:00 Completed [facility] Influenza Virus Vaccine Recomb Quad IM, Preserv and ABX Free 18-64 YRS 2020-05-16 00:00:00 Completed [facility] Influenza Virus Vaccine Recomb Quad IM, Preserv and ABX Free 18-64 YRS 2020-05-16 00:00:00 Completed [facility] Influenza Virus Vaccine Recomb Quad IM, Preserv and ABX Free 18-64 YRS 2020-05-16 00:00:00 Completed [facility] Influenza Virus Vaccine Recomb Quad IM, Preserv and ABX Free 18-64 YRS 2020-05-16 00:00:00 Completed [facility] Influenza Virus Vaccine Recomb Quad IM, Preserv and ABX Free 18-64 YRS 2020-05-16 00:00:00 Completed [facility] Influenza Virus Vaccine Recomb Quad IM, Preserv and ABX Free 18-64 YRS 2020-05-16 00:00:00 Completed [facility] Influenza Virus Vaccine Recomb Quad IM, Preserv and ABX Free 18-64 YRS 2020-05-16 00:00:00 Completed [facility] Influenza Virus Vaccine Recomb Quad IM, Preserv and ABX Free 18-64 YRS 2020-05-16 00:00:00 Completed [facility] Influenza Virus Vaccine Recomb Quad IM, Preserv and ABX Free 18-64 YRS 2020-05-16 00:00:00 Completed [facility] Influenza Virus Vaccine Recomb Quad IM, Preserv and ABX Free 18-64 YRS 2020-05-16 00:00:00 Completed [facility] Influenza Virus Vaccine Recomb Quad IM, Preserv and ABX Free 18-64 YRS 2020-05-16 00:00:00 Completed [facility] Influenza Virus Vaccine Recomb Quad IM, Preserv and ABX Free 18-64 YRS 2020-05-16 00:00:00 Completed [facility] Influenza Virus Vaccine Recomb Quad IM, Preserv and ABX Free 18-64 YRS 2020-05-16 00:00:00 Completed [facility] Influenza Virus Vaccine Recomb Quad IM, Preserv and ABX Free 18-64 YRS 2020-05-16 00:00:00 Completed [facility] Influenza Virus Vaccine Recomb Quad IM, Preserv and ABX Free 18-64 YRS 2020-05-16 00:00:00 Completed [facility] Influenza Virus Vaccine Recomb Quad IM, Preserv and ABX Free 18-64 YRS 2020-05-16 00:00:00 Completed [facility] Influenza Virus Vaccine Recomb Quad IM, Preserv and ABX Free 18-64 YRS 2020-05-16 00:00:00 Completed [facility] Influenza Virus Vaccine Recomb Quad IM, Preserv and ABX Free 18-64 YRS 2020-05-16 00:00:00 Completed [facility] TDAP (ADACEL) VACCINE 2019-05-21 00:00:00 Completed [facility] TDAP (ADACEL) VACCINE 2019-05-21 00:00:00 Completed [facility] TDAP (ADACEL) VACCINE 2019-05-21 00:00:00 Completed [facility] TDAP (ADACEL) VACCINE 2019-05-21 00:00:00 Completed [facility] TDAP (ADACEL) VACCINE 2019-05-21 00:00:00 Completed [facility] TDAP (ADACEL) VACCINE 2019-05-21 00:00:00 Completed [facility] TDAP (ADACEL) VACCINE 2019-05-21 00:00:00 Completed [facility] TDAP (ADACEL) VACCINE 2019-05-21 00:00:00 Completed [facility] TDAP (ADACEL) VACCINE 2019-05-21 00:00:00 Completed [facility] TDAP (ADACEL) VACCINE 2019-05-21 00:00:00 Completed [facility] TDAP (ADACEL) VACCINE 2019-05-21 00:00:00 Completed [facility] TDAP (ADACEL) VACCINE 2019-05-21 00:00:00 Completed [facility] TDAP (ADACEL) VACCINE 2019-05-21 00:00:00 Completed [facility] TDAP (ADACEL) VACCINE 2019-05-21 00:00:00 Completed [facility] TDAP (ADACEL) VACCINE 2019-05-21 00:00:00 Completed [facility] TDAP (ADACEL) VACCINE 2019-05-21 00:00:00 Completed [facility] TDAP (ADACEL) VACCINE 2019-05-21 00:00:00 Completed [facility] TDAP (ADACEL) VACCINE 2019-05-21 00:00:00 Completed [facility] TDAP (ADACEL) VACCINE 2019-05-21 00:00:00 Completed [facility] TDAP (ADACEL) VACCINE 2019-05-21 00:00:00 Completed [facility] TDAP (ADACEL) VACCINE 2019-05-21 00:00:00 Completed [facility] TDAP (ADACEL) VACCINE 2019-05-21 00:00:00 Completed [facility] TDAP (ADACEL) VACCINE 2019-05-21 00:00:00 Completed [facility] TDAP (ADACEL) VACCINE 2019-05-21 00:00:00 Completed [facility] TDAP (ADACEL) VACCINE 2019-05-21 00:00:00 Completed [facility] TDAP (ADACEL) VACCINE 2019-05-21 00:00:00 Completed [facility] TDAP (ADACEL) VACCINE 2019-05-21 00:00:00 Completed [facility] TDAP (ADACEL) VACCINE 2019-05-21 00:00:00 Completed [facility] TDAP (ADACEL) VACCINE 2019-05-21 00:00:00 Completed [facility] TDAP (ADACEL) VACCINE 2019-05-21 00:00:00 Completed [facility] TDAP (ADACEL) VACCINE 2019-05-21 00:00:00 Completed [facility] TDAP (ADACEL) VACCINE 2019-05-21 00:00:00 Completed [facility] TDAP (ADACEL) VACCINE 2019-05-21 00:00:00 Completed [facility] TDAP (ADACEL) VACCINE 2019-05-21 00:00:00 Completed [facility] TDAP (ADACEL) VACCINE 2019-05-21 00:00:00 Completed [facility] TDAP (ADACEL) VACCINE 2019-05-21 00:00:00 Completed [facility] TDAP (ADACEL) VACCINE 2019-05-21 00:00:00 Completed [facility] TDAP (ADACEL) VACCINE 2019-05-21 00:00:00 Completed [facility] TDAP (ADACEL) VACCINE 2019-05-21 00:00:00 Completed [facility] TDAP (ADACEL) VACCINE 2019-05-21 00:00:00 Completed [facility] TDAP (ADACEL) VACCINE 2019-05-21 00:00:00 Completed [facility] TDAP (ADACEL) VACCINE 2019-05-21 00:00:00 Completed [facility] TDAP (ADACEL) VACCINE 2019-05-21 00:00:00 Completed [facility] TDAP (ADACEL) VACCINE 2019-05-21 00:00:00 Completed [facility] TDAP (ADACEL) VACCINE 2019-05-21 00:00:00 Completed [facility] TDAP (ADACEL) VACCINE 2019-05-21 00:00:00 Completed [facility] TDAP (ADACEL) VACCINE 2019-05-21 00:00:00 Completed [facility] TDAP (ADACEL) VACCINE 2019-05-21 00:00:00 Completed [facility] TDAP (ADACEL) VACCINE 2019-05-21 00:00:00 Completed [facility] TDAP (ADACEL) VACCINE 2019-05-21 00:00:00 Completed [facility] TDAP (ADACEL) VACCINE 2019-05-21 00:00:00 Completed [facility] TDAP (ADACEL) VACCINE 2019-05-21 00:00:00 Completed [facility] TDAP (ADACEL) VACCINE 2019-05-21 00:00:00 Completed [facility] TDAP (ADACEL) VACCINE 2019-05-21 00:00:00 Completed [facility] TDAP (ADACEL) VACCINE 2019-05-21 00:00:00 Completed [facility] Influenza Virus Vaccine Quad .5 mL IM 6+ MO 2019-02-06 00:00:00 Completed [facility] Influenza Virus Vaccine Quad .5 mL IM 6+ MO 2019-02-06 00:00:00 Completed [facility] Influenza Virus Vaccine Quad .5 mL IM 6+ MO 2019-02-06 00:00:00 Completed [facility] Influenza Virus Vaccine Quad .5 mL IM 6+ MO 2019-02-06 00:00:00 Completed [facility] Influenza Virus Vaccine Quad .5 mL IM 6+ MO 2019-02-06 00:00:00 Completed [facility] Influenza Virus Vaccine Quad .5 mL IM 6+ MO 2019-02-06 00:00:00 Completed [facility] Influenza Virus Vaccine Quad .5 mL IM 6+ MO 2019-02-06 00:00:00 Completed [facility] Influenza Virus Vaccine Quad .5 mL IM 6+ MO 2019-02-06 00:00:00 Completed [facility] Influenza Virus Vaccine Quad .5 mL IM 6+ MO 2019-02-06 00:00:00 Completed [facility] Influenza Virus Vaccine Quad .5 mL IM 6+ MO 2019-02-06 00:00:00 Completed [facility] Influenza Virus Vaccine Quad .5 mL IM 6+ MO 2019-02-06 00:00:00 Completed [facility] Influenza Virus Vaccine Quad .5 mL IM 6+ MO 2019-02-06 00:00:00 Completed [facility] Influenza Virus Vaccine Quad .5 mL IM 6+ MO 2019-02-06 00:00:00 Completed [facility] Influenza Virus Vaccine Quad .5 mL IM 6+ MO 2019-02-06 00:00:00 Completed [facility] Influenza Virus Vaccine Quad .5 mL IM 6+ MO 2019-02-06 00:00:00 Completed [facility] Influenza Virus Vaccine Quad .5 mL IM 6+ MO 2019-02-06 00:00:00 Completed [facility] Influenza Virus Vaccine Quad .5 mL IM 6+ MO 2019-02-06 00:00:00 Completed [facility] Influenza Virus Vaccine Quad .5 mL IM 6+ MO 2019-02-06 00:00:00 Completed [facility] Influenza Virus Vaccine Quad .5 mL IM 6+ MO 2019-02-06 00:00:00 Completed [facility] Influenza Virus Vaccine Quad .5 mL IM 6+ MO 2019-02-06 00:00:00 Completed [facility] Influenza Virus Vaccine Quad .5 mL IM 6+ MO 2019-02-06 00:00:00 Completed [facility] Influenza Virus Vaccine Quad .5 mL IM 6+ MO 2019-02-06 00:00:00 Completed [facility] Influenza Virus Vaccine Quad .5 mL IM 6+ MO 2019-02-06 00:00:00 Completed [facility] Influenza Virus Vaccine Quad .5 mL IM 6+ MO 2019-02-06 00:00:00 Completed [facility] Influenza Virus Vaccine Quad .5 mL IM 6+ MO 2019-02-06 00:00:00 Completed [facility] Influenza Virus Vaccine Quad .5 mL IM 6+ MO 2019-02-06 00:00:00 Completed [facility] Influenza Virus Vaccine Quad .5 mL IM 6+ MO 2019-02-06 00:00:00 Completed [facility] Influenza Virus Vaccine Quad .5 mL IM 6+ MO 2019-02-06 00:00:00 Completed [facility] Influenza Virus Vaccine Quad .5 mL IM 6+ MO 2019-02-06 00:00:00 Completed [facility] Influenza Virus Vaccine Quad .5 mL IM 6+ MO 2019-02-06 00:00:00 Completed [facility] Influenza Virus Vaccine Quad .5 mL IM 6+ MO 2019-02-06 00:00:00 Completed [facility] Influenza Virus Vaccine Quad .5 mL IM 6+ MO 2019-02-06 00:00:00 Completed [facility] Influenza Virus Vaccine Quad .5 mL IM 6+ MO 2019-02-06 00:00:00 Completed [facility] Influenza Virus Vaccine Quad .5 mL IM 6+ MO 2019-02-06 00:00:00 Completed [facility] Influenza Virus Vaccine Quad .5 mL IM 6+ MO 2019-02-06 00:00:00 Completed [facility] Influenza Virus Vaccine Quad .5 mL IM 6+ MO 2019-02-06 00:00:00 Completed [facility] Influenza Virus Vaccine Quad .5 mL IM 6+ MO 2019-02-06 00:00:00 Completed [facility] Influenza Virus Vaccine Quad .5 mL IM 6+ MO 2019-02-06 00:00:00 Completed [facility] Influenza Virus Vaccine Quad .5 mL IM 6+ MO 2019-02-06 00:00:00 Completed [facility] Influenza Virus Vaccine Quad .5 mL IM 6+ MO 2019-02-06 00:00:00 Completed [facility] Influenza Virus Vaccine Quad .5 mL IM 6+ MO 2019-02-06 00:00:00 Completed [facility] Influenza Virus Vaccine Quad .5 mL IM 6+ MO 2019-02-06 00:00:00 Completed [facility] Influenza Virus Vaccine Quad .5 mL IM 6+ MO 2019-02-06 00:00:00 Completed [facility] Influenza Virus Vaccine Quad .5 mL IM 6+ MO 2019-02-06 00:00:00 Completed [facility] Influenza Virus Vaccine Quad .5 mL IM 6+ MO 2019-02-06 00:00:00 Completed [facility] Influenza Virus Vaccine Quad .5 mL IM 6+ MO 2019-02-06 00:00:00 Completed [facility] Influenza Virus Vaccine Quad .5 mL IM 6+ MO 2019-02-06 00:00:00 Completed [facility] Influenza Virus Vaccine Quad .5 mL IM 6+ MO 2019-02-06 00:00:00 Completed [facility] Influenza Virus Vaccine Quad .5 mL IM 6+ MO 2019-02-06 00:00:00 Completed [facility] Influenza Virus Vaccine Quad .5 mL IM 6+ MO 2019-02-06 00:00:00 Completed [facility] Influenza Virus Vaccine Quad .5 mL IM 6+ MO 2019-02-06 00:00:00 Completed [facility] Influenza Virus Vaccine Quad .5 mL IM 6+ MO 2019-02-06 00:00:00 Completed [facility] Influenza Virus Vaccine Quad .5 mL IM 6+ MO (FLUZONE/FLULAVAL/F LUARIX) 2019-02-06 00:00:00 Completed [facility] Influenza Virus Vaccine Quad .5 mL IM 6+ MO (FLUZONE/FLULAVAL/F LUARIX) 2019-02-06 00:00:00 Completed [facility] Influenza Virus Vaccine Quad .5 mL IM 6+ MO (FLUZONE/FLULAVAL/F LUARIX) 2019-02-06 00:00:00 Completed [facility] Influenza Virus Vaccine Quad .5 mL IM 6+ MO (FLUZONE/FLULAVAL/F LUARIX) Unknown Completed [facility] TDAP (ADACEL) VACCINE Unknown Completed [facility] Influenza Virus Vaccine Recomb Quad IM, Preserv and ABX Free 18-64 YRS Unknown Completed [facility] Influenza Virus Vaccine Unknown Completed [facility] Influenza Virus Vaccine Quad IM, Preserv and ABX Free 6 MO-64 YRS (FLUCELVAX) Unknown Completed [facility] Influenza Virus Vaccine Quad .5 mL IM 6+ MO (FLUZONE/FLULAVAL/F LUARIX) Unknown Completed [facility] TDAP (ADACEL) VACCINE Unknown Completed [facility] Influenza Virus Vaccine Recomb Quad IM, Preserv and ABX Free 18-64 YRS Unknown Completed [facility] Influenza Virus Vaccine Unknown Completed [facility] Influenza Virus Vaccine Quad IM, Preserv and ABX Free 6 MO-64 YRS (FLUCELVAX) Unknown Completed [facility] Influenza Virus Vaccine Quad .5 mL IM 6+ MO (FLUZONE/FLULAVAL/F LUARIX) Unknown Completed [facility] TDAP (ADACEL) VACCINE Unknown Completed [facility] Influenza Virus Vaccine Recomb Quad IM, Preserv and ABX Free 18-64 YRS Unknown Completed [facility] Influenza Virus Vaccine Unknown Completed [facility] Influenza Virus Vaccine Quad .5 mL IM 6+ MO (FLUZONE/FLULAVAL/F LUARIX) Unknown Completed [facility] TDAP (ADACEL) VACCINE Unknown Completed [facility] Influenza Virus Vaccine Recomb Quad IM, Preserv and ABX Free 18-64 YRS Unknown Completed [facility] Influenza Virus Vaccine Unknown Completed [facility] Influenza Virus Vaccine Quad .5 mL IM 6+ MO (FLUZONE/FLULAVAL/F LUARIX) Unknown Completed [facility] TDAP (ADACEL) VACCINE Unknown Completed [facility] Influenza Virus Vaccine Recomb Quad IM, Preserv and ABX Free 18-64 YRS Unknown Completed [facility] Influenza Virus Vaccine Unknown Completed [facility] Influenza Virus Vaccine Quad .5 mL IM 6+ MO (FLUZONE/FLULAVAL/F LUARIX) Unknown Completed [facility] TDAP (ADACEL) VACCINE Unknown Completed [facility] Influenza Virus Vaccine Recomb Quad IM, Preserv and ABX Free 18-64 YRS Unknown Completed [facility] Influenza Virus Vaccine Unknown Completed [facility] Influenza Virus Vaccine Quad .5 mL IM 6+ MO (FLUZONE/FLULAVAL/F LUARIX) Unknown Completed [facility] TDAP (ADACEL) VACCINE Unknown Completed [facility] Influenza Virus Vaccine Recomb Quad IM, Preserv and ABX Free 18-64 YRS Unknown Completed [facility] Influenza Virus Vaccine Unknown Completed [facility] Influenza Virus Vaccine Quad .5 mL IM 6+ MO (FLUZONE/FLULAVAL/F LUARIX) Unknown Completed [facility] TDAP (ADACEL) VACCINE Unknown Completed [facility] Influenza Virus Vaccine Recomb Quad IM, Preserv and ABX Free 18-64 YRS Unknown Completed [facility] Influenza Virus Vaccine Unknown Completed [facility] Influenza Virus Vaccine Quad .5 mL IM 6+ MO (FLUZONE/FLULAVAL/F LUARIX) Unknown Completed [facility] TDAP (ADACEL) VACCINE Unknown Completed [facility] Influenza Virus Vaccine Recomb Quad IM, Preserv and ABX Free 18-64 YRS Unknown Completed [facility] Influenza Virus Vaccine Unknown Completed [facility] Influenza Virus Vaccine Quad .5 mL IM 6+ MO (FLUZONE/FLULAVAL/F LUARIX) Unknown Completed [facility] TDAP (ADACEL) VACCINE Unknown Completed [facility] Influenza Virus Vaccine Recomb Quad IM, Preserv and ABX Free 18-64 YRS Unknown Completed [facility] Influenza Virus Vaccine Unknown Completed [facility] Influenza Virus Vaccine Quad .5 mL IM 6+ MO (FLUZONE/FLULAVAL/F LUARIX) Unknown Completed [facility] TDAP (ADACEL) VACCINE Unknown Completed [facility] Influenza Virus Vaccine Recomb Quad IM, Preserv and ABX Free 18-64 YRS Unknown Completed [facility] Influenza Virus Vaccine Unknown Completed [facility] Influenza Virus Vaccine Quad .5 mL IM 6+ MO (FLUZONE/FLULAVAL/F LUARIX) Unknown Completed [facility] TDAP (ADACEL) VACCINE Unknown Completed [facility] Influenza Virus Vaccine Recomb Quad IM, Preserv and ABX Free 18-64 YRS Unknown Completed [facility] Influenza Virus Vaccine Unknown Completed [facility] Influenza Virus Vaccine Quad .5 mL IM 6+ MO (FLUZONE/FLULAVAL/F LUARIX) Unknown Completed [facility] TDAP (ADACEL) VACCINE Unknown Completed [facility] Influenza Virus Vaccine Recomb Quad IM, Preserv and ABX Free 18-64 YRS Unknown Completed [facility] Influenza Virus Vaccine Unknown Completed [facility] Influenza Virus Vaccine Quad .5 mL IM 6+ MO (FLUZONE/FLULAVAL/F LUARIX) Unknown Completed [facility] TDAP (ADACEL) VACCINE Unknown Completed [facility] Influenza Virus Vaccine Recomb Quad IM, Preserv and ABX Free 18-64 YRS Unknown Completed [facility] Influenza Virus Vaccine Unknown Completed [facility] Influenza Virus Vaccine Quad .5 mL IM 6+ MO (FLUZONE/FLULAVAL/F LUARIX) Unknown Completed [facility] TDAP (ADACEL) VACCINE Unknown Completed [facility] Influenza Virus Vaccine Recomb Quad IM, Preserv and ABX Free 18-64 YRS Unknown Completed [facility] Influenza Virus Vaccine Unknown Completed [facility] Influenza Virus Vaccine Quad .5 mL IM 6+ MO (FLUZONE/FLULAVAL/F LUARIX) Unknown Completed [facility] TDAP (ADACEL) VACCINE Unknown Completed [facility] Influenza Virus Vaccine Recomb Quad IM, Preserv and ABX Free 18-64 YRS Unknown Completed [facility] Influenza Virus Vaccine Unknown Completed [facility] Influenza Virus Vaccine Quad .5 mL IM 6+ MO (FLUZONE/FLULAVAL/F LUARIX) Unknown Completed [facility] TDAP (ADACEL) VACCINE Unknown Completed [facility] Influenza Virus Vaccine Recomb Quad IM, Preserv and ABX Free 18-64 YRS Unknown Completed [facility] Influenza Virus Vaccine Unknown Completed [facility] Influenza Virus Vaccine Quad .5 mL IM 6+ MO (FLUZONE/FLULAVAL/F LUARIX) Unknown Completed [facility] TDAP (ADACEL) VACCINE Unknown Completed [facility] Influenza Virus Vaccine Recomb Quad IM, Preserv and ABX Free 18-64 YRS Unknown Completed [facility] Influenza Virus Vaccine Unknown Completed [facility] Influenza Virus Vaccine Quad .5 mL IM 6+ MO (FLUZONE/FLULAVAL/F LUARIX) Unknown Completed [facility] TDAP (ADACEL) VACCINE Unknown Completed [facility] Influenza Virus Vaccine Recomb Quad IM, Preserv and ABX Free 18-64 YRS Unknown Completed [facility] Influenza Virus Vaccine Unknown Completed [facility] Influenza Virus Vaccine Quad .5 mL IM 6+ MO (FLUZONE/FLULAVAL/F LUARIX) Unknown Completed [facility] TDAP (ADACEL) VACCINE Unknown Completed [facility] Influenza Virus Vaccine Recomb Quad IM, Preserv and ABX Free 18-64 YRS Unknown Completed [facility] Influenza Virus Vaccine Unknown Completed [facility] Influenza Virus Vaccine Quad .5 mL IM 6+ MO (FLUZONE/FLULAVAL/F LUARIX) Unknown Completed [facility] TDAP (ADACEL) VACCINE Unknown Completed [facility] Influenza Virus Vaccine Recomb Quad IM, Preserv and ABX Free 18-64 YRS Unknown Completed [facility] Influenza Virus Vaccine Unknown Completed [facility] Influenza Virus Vaccine Quad .5 mL IM 6+ MO (FLUZONE/FLULAVAL/F LUARIX) Unknown Completed [facility] TDAP (ADACEL) VACCINE Unknown Completed [facility] Influenza Virus Vaccine Recomb Quad IM, Preserv and ABX Free 18-64 YRS Unknown Completed [facility] Influenza Virus Vaccine Unknown Completed [facility] Influenza Virus Vaccine Quad .5 mL IM 6+ MO (FLUZONE/FLULAVAL/F LUARIX) Unknown Completed [facility] TDAP (ADACEL) VACCINE Unknown Completed [facility] Influenza Virus Vaccine Recomb Quad IM, Preserv and ABX Free 18-64 YRS Unknown Completed [facility] Influenza Virus Vaccine Unknown Completed [facility] Influenza Virus Vaccine Quad .5 mL IM 6+ MO (FLUZONE/FLULAVAL/F LUARIX) Unknown Completed [facility] TDAP (ADACEL) VACCINE Unknown Completed [facility] Influenza Virus Vaccine Recomb Quad IM, Preserv and ABX Free 18-64 YRS Unknown Completed [facility] Influenza Virus Vaccine Unknown Completed [facility] Influenza Virus Vaccine Quad .5 mL IM 6+ MO (FLUZONE/FLULAVAL/F LUARIX) Unknown Completed [facility] TDAP (ADACEL) VACCINE Unknown Completed [facility] Influenza Virus Vaccine Recomb Quad IM, Preserv and ABX Free 18-64 YRS Unknown Completed [facility] Influenza Virus Vaccine Unknown Completed [facility] Influenza Virus Vaccine Quad .5 mL IM 6+ MO (FLUZONE/FLULAVAL/F LUARIX) Unknown Completed [facility] TDAP (ADACEL) VACCINE Unknown Completed [facility] Influenza Virus Vaccine Recomb Quad IM, Preserv and ABX Free 18-64 YRS Unknown Completed [facility] Influenza Virus Vaccine Unknown Completed [facility] Influenza Virus Vaccine Quad .5 mL IM 6+ MO (FLUZONE/FLULAVAL/F LUARIX) Unknown Completed [facility] TDAP (ADACEL) VACCINE Unknown Completed [facility] Influenza Virus Vaccine Recomb Quad IM, Preserv and ABX Free 18-64 YRS Unknown Completed [facility] Influenza Virus Vaccine Unknown Completed [facility] Influenza Virus Vaccine Quad .5 mL IM 6+ MO (FLUZONE/FLULAVAL/F LUARIX) Unknown Completed [facility] TDAP (ADACEL) VACCINE Unknown Completed [facility] Influenza Virus Vaccine Recomb Quad IM, Preserv and ABX Free 18-64 YRS Unknown Completed [facility] Influenza Virus Vaccine Unknown Completed [facility] Influenza Virus Vaccine Quad .5 mL IM 6+ MO (FLUZONE/FLULAVAL/F LUARIX) Unknown Completed [facility] TDAP (ADACEL) VACCINE Unknown Completed [facility] Influenza Virus Vaccine Recomb Quad IM, Preserv and ABX Free 18-64 YRS Unknown Completed [facility] Influenza Virus Vaccine Unknown Completed [facility] Influenza Virus Vaccine Quad .5 mL IM 6+ MO (FLUZONE/FLULAVAL/F LUARIX) Unknown Completed [facility] TDAP (ADACEL) VACCINE Unknown Completed [facility] Influenza Virus Vaccine Recomb Quad IM, Preserv and ABX Free 18-64 YRS Unknown Completed [facility] Influenza Virus Vaccine Unknown Completed [facility] Influenza Virus Vaccine Quad .5 mL IM 6+ MO (FLUZONE/FLULAVAL/F LUARIX) Unknown Completed [facility] TDAP (ADACEL) VACCINE Unknown Completed [facility] Influenza Virus Vaccine Recomb Quad IM, Preserv and ABX Free 18-64 YRS Unknown Completed [facility] Influenza Virus Vaccine Unknown Completed [facility] Influenza Virus Vaccine Quad .5 mL IM 6+ MO (FLUZONE/FLULAVAL/F LUARIX) Unknown Completed [facility] TDAP (ADACEL) VACCINE Unknown Completed [facility] Influenza Virus Vaccine Recomb Quad IM, Preserv and ABX Free 18-64 YRS Unknown Completed [facility] Influenza Virus Vaccine Unknown Completed [facility] Influenza Virus Vaccine Quad .5 mL IM 6+ MO (FLUZONE/FLULAVAL/F LUARIX) Unknown Completed [facility] TDAP (ADACEL) VACCINE Unknown Completed [facility] Influenza Virus Vaccine Recomb Quad IM, Preserv and ABX Free 18-64 YRS Unknown Completed [facility] Influenza Virus Vaccine Unknown Completed [facility] Influenza Virus Vaccine Quad .5 mL IM 6+ MO (FLUZONE/FLULAVAL/F LUARIX) Unknown Completed [facility] TDAP (ADACEL) VACCINE Unknown Completed [facility] Influenza Virus Vaccine Recomb Quad IM, Preserv and ABX Free 18-64 YRS Unknown Completed [facility] Influenza Virus Vaccine Unknown Completed [facility] Influenza Virus Vaccine Quad .5 mL IM 6+ MO (FLUZONE/FLULAVAL/F LUARIX) Unknown Completed [facility] TDAP (ADACEL) VACCINE Unknown Completed [facility] Influenza Virus Vaccine Recomb Quad IM, Preserv and ABX Free 18-64 YRS Unknown Completed [facility] Influenza Virus Vaccine Unknown Completed [facility] Influenza Virus Vaccine Quad .5 mL IM 6+ MO (FLUZONE/FLULAVAL/F LUARIX) Unknown Completed [facility] TDAP (ADACEL) VACCINE Unknown Completed [facility] Influenza Virus Vaccine Recomb Quad IM, Preserv and ABX Free 18-64 YRS Unknown Completed [facility] Influenza Virus Vaccine Unknown Completed [facility] Influenza Virus Vaccine Quad .5 mL IM 6+ MO (FLUZONE/FLULAVAL/F LUARIX) Unknown Completed [facility] TDAP (ADACEL) VACCINE Unknown Completed [facility] Influenza Virus Vaccine Recomb Quad IM, Preserv and ABX Free 18-64 YRS Unknown Completed [facility] Influenza Virus Vaccine Unknown Completed [facility] Influenza Virus Vaccine Quad .5 mL IM 6+ MO (FLUZONE/FLULAVAL/F LUARIX) Unknown Completed [facility] TDAP (ADACEL) VACCINE Unknown Completed [facility] Influenza Virus Vaccine Recomb Quad IM, Preserv and ABX Free 18-64 YRS Unknown Completed [facility] Influenza Virus Vaccine Unknown Completed [facility] Influenza Virus Vaccine Quad .5 mL IM 6+ MO (FLUZONE/FLULAVAL/F LUARIX) Unknown Completed [facility] TDAP (ADACEL) VACCINE Unknown Completed [facility] Influenza Virus Vaccine Recomb Quad IM, Preserv and ABX Free 18-64 YRS Unknown Completed [facility] Influenza Virus Vaccine Unknown Completed [facility] Influenza Virus Vaccine Quad .5 mL IM 6+ MO (FLUZONE/FLULAVAL/F LUARIX) Unknown Completed [facility] TDAP (ADACEL) VACCINE Unknown Completed [facility] Influenza Virus Vaccine Recomb Quad IM, Preserv and ABX Free 18-64 YRS Unknown Completed [facility] Influenza Virus Vaccine Unknown Completed [facility] Influenza Virus Vaccine Quad .5 mL IM 6+ MO (FLUZONE/FLULAVAL/F LUARIX) Unknown Completed [facility] TDAP (ADACEL) VACCINE Unknown Completed [facility] Influenza Virus Vaccine Recomb Quad IM, Preserv and ABX Free 18-64 YRS Unknown Completed [facility] Influenza Virus Vaccine Unknown Completed [facility] Influenza Virus Vaccine Quad .5 mL IM 6+ MO (FLUZONE/FLULAVAL/F LUARIX) Unknown Completed [facility] TDAP (ADACEL) VACCINE Unknown Completed [facility] Influenza Virus Vaccine Recomb Quad IM, Preserv and ABX Free 18-64 YRS Unknown Completed [facility] Influenza Virus Vaccine Unknown Completed [facility] Influenza Virus Vaccine Quad .5 mL IM 6+ MO (FLUZONE/FLULAVAL/F LUARIX) Unknown Completed [facility] TDAP (ADACEL) VACCINE Unknown Completed [facility] Influenza Virus Vaccine Recomb Quad IM, Preserv and ABX Free 18-64 YRS Unknown Completed [facility] Influenza Virus Vaccine Unknown Completed [facility] Influenza Virus Vaccine Quad .5 mL IM 6+ MO (FLUZONE/FLULAVAL/F LUARIX) Unknown Completed [facility] TDAP (ADACEL) VACCINE Unknown Completed [facility] Influenza Virus Vaccine Recomb Quad IM, Preserv and ABX Free 18-64 YRS Unknown Completed [facility] Influenza Virus Vaccine Unknown Completed [facility] Influenza Virus Vaccine Quad .5 mL IM 6+ MO (FLUZONE/FLULAVAL/F LUARIX) Unknown Completed [facility] TDAP (ADACEL) VACCINE Unknown Completed [facility] Influenza Virus Vaccine Recomb Quad IM, Preserv and ABX Free 18-64 YRS Unknown Completed [facility] Influenza Virus Vaccine Unknown Completed [facility] Influenza Virus Vaccine Quad .5 mL IM 6+ MO (FLUZONE/FLULAVAL/F LUARIX) Unknown Completed [facility] TDAP (ADACEL) VACCINE Unknown Completed [facility] Influenza Virus Vaccine Recomb Quad IM, Preserv and ABX Free 18-64 YRS Unknown Completed [facility] Influenza Virus Vaccine Unknown Completed [facility] Influenza Virus Vaccine Quad .5 mL IM 6+ MO (FLUZONE/FLULAVAL/F LUARIX) Unknown Completed [facility] TDAP (ADACEL) VACCINE Unknown Completed [facility] Influenza Virus Vaccine Recomb Quad IM, Preserv and ABX Free 18-64 YRS Unknown Completed [facility] Influenza Virus Vaccine Unknown Completed [facility] Influenza Virus Vaccine Quad .5 mL IM 6+ MO (FLUZONE/FLULAVAL/F LUARIX) Unknown Completed [facility] TDAP (ADACEL) VACCINE Unknown Completed [facility] Influenza Virus Vaccine Recomb Quad IM, Preserv and ABX Free 18-64 YRS Unknown Completed [facility] Influenza Virus Vaccine Unknown Completed [facility] Influenza Virus Vaccine Quad .5 mL IM 6+ MO (FLUZONE/FLULAVAL/F LUARIX) Unknown Completed [facility] TDAP (ADACEL) VACCINE Unknown Completed [facility] Influenza Virus Vaccine Recomb Quad IM, Preserv and ABX Free 18-64 YRS Unknown Completed [facility] Influenza Virus Vaccine Unknown Completed [facility] Influenza Virus Vaccine Quad .5 mL IM 6+ MO (FLUZONE/FLULAVAL/F LUARIX) Unknown Completed [facility] TDAP (ADACEL) VACCINE Unknown Completed [facility] Influenza Virus Vaccine Recomb Quad IM, Preserv and ABX Free 18-64 YRS Unknown Completed [facility] Influenza Virus Vaccine Unknown Completed [facility] Influenza Virus Vaccine Quad .5 mL IM 6+ MO (FLUZONE/FLULAVAL/F LUARIX) Unknown Completed [facility] TDAP (ADACEL) VACCINE Unknown Completed [facility] Influenza Virus Vaccine Recomb Quad IM, Preserv and ABX Free 18-64 YRS Unknown Completed [facility] Influenza Virus Vaccine Unknown Completed [facility] Influenza Virus Vaccine Quad .5 mL IM 6+ MO (FLUZONE/FLULAVAL/F LUARIX) Unknown Completed [facility] TDAP (ADACEL) VACCINE Unknown Completed [facility] Influenza Virus Vaccine Recomb Quad IM, Preserv and ABX Free 18-64 YRS Unknown Completed [facility] Influenza Virus Vaccine Unknown Completed [facility] Influenza Virus Vaccine Quad .5 mL IM 6+ MO (FLUZONE/FLULAVAL/F LUARIX) Unknown Completed [facility] TDAP (ADACEL) VACCINE Unknown Completed [facility] Influenza Virus Vaccine Recomb Quad IM, Preserv and ABX Free 18-64 YRS Unknown Completed [facility] Influenza Virus Vaccine Unknown Completed [facility] Influenza Virus Vaccine Quad .5 mL IM 6+ MO (FLUZONE/FLULAVAL/F LUARIX) Unknown Completed [facility] TDAP (ADACEL) VACCINE Unknown Completed [facility] Influenza Virus Vaccine Recomb Quad IM, Preserv and ABX Free 18-64 YRS Unknown Completed [facility] Influenza Virus Vaccine Unknown Completed [facility] Influenza Virus Vaccine Quad .5 mL IM 6+ MO (FLUZONE/FLULAVAL/F LUARIX) Unknown Completed [facility] TDAP (ADACEL) VACCINE Unknown Completed [facility] Influenza Virus Vaccine Quad .5 mL IM 6+ MO (FLUZONE/FLULAVAL/F LUARIX) Unknown Completed [facility] TDAP (ADACEL) VACCINE Unknown Completed [facility] Influenza Virus Vaccine Quad .5 mL IM 6+ MO (FLUZONE/FLULAVAL/F LUARIX) Unknown Completed [facility] TDAP (ADACEL) VACCINE Unknown Completed [facility] Influenza Virus Vaccine Quad .5 mL IM 6+ MO (FLUZONE/FLULAVAL/F LUARIX) Unknown Completed [facility] TDAP (ADACEL) VACCINE Unknown Completed [facility] Influenza Virus Vaccine Quad .5 mL IM 6+ MO (FLUZONE/FLULAVAL/F LUARIX) Unknown Completed [facility] TDAP (ADACEL) VACCINE Unknown Completed [facility] Influenza Virus Vaccine Quad .5 mL IM 6+ MO (FLUZONE/FLULAVAL/F LUARIX) Unknown Completed [facility] TDAP (ADACEL) VACCINE Unknown Completed [facility] Influenza Virus Vaccine Quad .5 mL IM 6+ MO (FLUZONE/FLULAVAL/F LUARIX) Unknown Completed [facility] TDAP (ADACEL) VACCINE Unknown Completed [facility] Influenza Virus Vaccine Quad .5 mL IM 6+ MO (FLUZONE/FLULAVAL/F LUARIX) Unknown Completed [facility] TDAP (ADACEL) VACCINE Unknown Completed [facility] Influenza Virus Vaccine Quad .5 mL IM 6+ MO (FLUZONE/FLULAVAL/F LUARIX) Unknown Completed [facility] TDAP (ADACEL) VACCINE Unknown Completed [facility] Influenza Virus Vaccine Quad .5 mL IM 6+ MO (FLUZONE/FLULAVAL/F LUARIX) Unknown Completed [facility] TDAP (ADACEL) VACCINE Unknown Completed [facility] Influenza Virus Vaccine Recomb Quad IM, Preserv and ABX Free 18-64 YRS Unknown Completed [facility] Influenza Virus Vaccine Unknown Completed [facility] Influenza Virus Vaccine Quad IM, Preserv and ABX Free 6 MO-64 YRS (FLUCELVAX) Unknown Completed [facility] Influenza Virus Vaccine Quad .5 mL IM 6+ MO (FLUZONE/FLULAVAL/F LUARIX) Unknown Completed [facility] TDAP (ADACEL) VACCINE Unknown Completed [facility] Influenza Virus Vaccine Recomb Quad IM, Preserv and ABX Free 18-64 YRS Unknown Completed [facility] Influenza Virus Vaccine Unknown Completed [facility] Influenza Virus Vaccine Quad IM, Preserv and ABX Free 6 MO-64 YRS (FLUCELVAX) Unknown Completed [facility] Influenza Virus Vaccine Quad .5 mL IM 6+ MO (FLUZONE/FLULAVAL/F LUARIX) Unknown Completed [facility] TDAP (ADACEL) VACCINE Unknown Completed [facility] Influenza Virus Vaccine Recomb Quad IM, Preserv and ABX Free 18-64 YRS Unknown Completed [facility] Influenza Virus Vaccine Unknown Completed [facility] Influenza Virus Vaccine Quad IM, Preserv and ABX Free 6 MO-64 YRS (FLUCELVAX) Unknown Completed [facility] Vital Signs Vital Name Observation Time Observation Value Comments S ource Systolic blood pressure 2024-05-19 20:32:57 137 mm[Hg] General acute hospital Diastolic blood pressure 2024-05-19 20:32:57 88 mm[Hg] General acute hospital Heart rate 2024-05-19 20:32:57 118 /min [facility] Respiratory rate 2024-05-19 20:32:57 18 /min [facility] Oxygen saturation in Arterial blood by Pulse oximetry 2024-05-19 20:32:57 100 /min General acute hospital Body temperature 2024-05-19 18:41:00 36.39 Irene [facility] Body height 2024-05-19 18:41:00 154.9 cm [facility] Body weight 2024-05-19 18:41:00 52.164 kg [facility] BMI 2024-05-19 18:41:00 21.73 kg/m2 [facility] Systolic blood pressure 2024-04-19 15:51:38 123 mm[Hg] General acute hospital Diastolic blood pressure 2024-04-19 15:51:38 90 mm[Hg] General acute hospital Heart rate 2024-04-19 15:51:38 87 /min [facility] Body temperature 2024-04-19 15:51:38 36.78 Ireen [facility] Respiratory rate 2024-04-19 15:51:38 14 /min [facility] Oxygen saturation in Arterial blood by Pulse oximetry 2024-04-19 15:51:38 100 /min General acute hospital Body height 2024-04-19 13:54:00 154.9 cm [facility] Body weight 2024-04-19 13:54:00 54.432 kg [facility] BMI 2024-04-19 13:54:00 22.67 kg/m2 [facility] Systolic blood pressure 2024-04-12 20:00:00 119 mm[Hg] General acute hospital Diastolic blood pressure 2024-04-12 20:00:00 80 mm[Hg] General acute hospital Heart rate 2024-04-12 20:00:00 88 /min [facility] Respiratory rate 2024-04-12 20:00:00 18 /min [facility] Oxygen saturation in Arterial blood by Pulse oximetry 2024-04-12 20:00:00 99 /min General acute hospital Body temperature 2024-04-12 19:00:00 36.67 Ireen [facility] Body height 2024-04-12 17:57:10 154.9 cm [facility] Body weight 2024-04-12 17:57:10 54.432 kg [facility] BMI 2024-04-12 17:57:10 22.67 kg/m2 [facility] Systolic blood pressure 2024-04-12 16:25:00 124 mm[Hg] General acute hospital Diastolic blood pressure 2024-04-12 16:25:00 95 mm[Hg] General acute hospital Heart rate 2024-04-12 16:25:00 106 /min [facility] Body temperature 2024-04-12 16:25:00 37.17 Irene [facility] Respiratory rate 2024-04-12 16:25:00 18 /min [facility] Oxygen saturation in Arterial blood by Pulse oximetry 2024-04-12 16:25:00 100 /min General acute hospital Body height 2024-04-12 15:25:00 154.9 cm [facility] Body weight 2024-04-12 15:25:00 54.432 kg [facility] BMI 2024-04-12 15:25:00 22.67 kg/m2 [facility] Systolic blood pressure 2024-03-13 13:25:00 129 mm[Hg] General acute hospital Diastolic blood pressure 2024-03-13 13:25:00 87 mm[Hg] General acute hospital Heart rate 2024-03-13 13:25:00 116 /min [facility] Body temperature 2024-03-13 13:25:00 35.61 Irene [facility] Respiratory rate 2024-03-13 13:25:00 20 /min [facility] Oxygen saturation in Arterial blood by Pulse oximetry 2024-03-13 13:25:00 94 /min General acute hospital Body height 2024-03-10 14:43:00 154.9 cm [facility] Body weight 2024-03-10 14:43:00 44.453 kg [facility] BMI 2024-03-10 14:43:00 18.52 kg/m2 [facility] Systolic blood pressure 2024-03-05 16:10:00 142 mm[Hg] General acute hospital Diastolic blood pressure 2024-03-05 16:10:00 87 mm[Hg] General acute hospital Heart rate 2024-03-05 16:10:00 94 /min [facility] Body temperature 2024-03-05 16:10:00 37 Irene [facility] Respiratory rate 2024-03-05 16:10:00 16 /min [facility] Oxygen saturation in Arterial blood by Pulse oximetry 2024-03-05 16:10:00 100 /min [facility] acute hospital Body height 2024-03-04 11:42:00 154.9 cm [facility] Body weight 2024-03-04 11:42:00 45.36 kg [facility] BMI 2024-03-04 11:42:00 18.89 kg/m2 [facility] Systolic blood pressure 2024-02-27 17:17:00 138 mm[Hg] General acute hospital Diastolic blood pressure 2024-02-27 17:17:00 91 mm[Hg] General acute hospital Heart rate 2024-02-27 17:17:00 97 /min [facility] Body temperature 2024-02-27 17:17:00 36.67 Irene [facility] Respiratory rate 2024-02-27 17:17:00 16 /min [facility] Oxygen saturation in Arterial blood by Pulse oximetry 2024-02-27 17:17:00 99 /min General acute hospital Body height 2024-02-27 13:16:00 154.9 cm [facility] Body weight 2024-02-27 13:16:00 45.36 kg [facility] BMI 2024-02-27 13:16:00 18.89 kg/m2 [facility] Systolic blood pressure 2024-02-27 15:50:00 122 mm[Hg] General acute hospital Diastolic blood pressure 2024-02-27 15:50:00 81 mm[Hg] General acute hospital Heart rate 2024-02-27 15:50:00 102 /min [facility] Respiratory rate 2024-02-27 15:50:00 13 /min [facility] Oxygen saturation in Arterial blood by Pulse oximetry 2024-02-27 15:50:00 98 /min General acute hospital Body temperature 2024-02-27 15:20:00 36 Irene [facility] Body height 2024-02-27 13:16:00 154.9 cm [facility] Body weight 2024-02-27 13:16:00 45.36 kg [facility] BMI 2024-02-27 13:16:00 18.89 kg/m2 [facility] Systolic blood pressure 2023-05-19 17:24:00 129 mm[Hg] General acute hospital Diastolic blood pressure 2023-05-19 17:24:00 83 mm[Hg] General acute hospital Heart rate 2023-05-19 17:24:00 77 /min [facility] Respiratory rate 2023-05-19 17:24:00 15 /min [facility] Oxygen saturation in Arterial blood by Pulse oximetry 2023-05-19 17:24:00 100 /min General acute hospital Body temperature 2023-05-19 14:50:00 37.28 Irene [facility] Body height 2023-05-19 14:50:00 154.9 cm [facility] Body weight 2023-05-19 14:50:00 58.968 kg [facility] BMI 2023-05-19 14:50:00 24.56 kg/m2 [facility] Systolic blood pressure 2023-01-15 16:56:00 132 mm[Hg] General acute hospital Diastolic blood pressure 2023-01-15 16:56:00 91 mm[Hg] General acute hospital Heart rate 2023-01-15 16:56:00 67 /min [facility] Body temperature 2023-01-15 16:56:00 36.78 Irene [facility] Respiratory rate 2023-01-15 16:56:00 20 /min [facility] Oxygen saturation in Arterial blood by Pulse oximetry 2023-01-15 16:56:00 100 /min General acute hospital Body height 2023-01-12 09:05:00 154.9 cm [facility] Body weight 2023-01-12 09:05:00 58.968 kg [facility] BMI 2023-01-12 09:05:00 24.56 kg/m2 [facility] Systolic blood pressure 2022-11-21 21:40:00 122 mm[Hg] General acute hospital Diastolic blood pressure 2022-11-21 21:40:00 90 mm[Hg] General acute hospital Heart rate 2022-11-21 21:40:00 92 /min [facility] Respiratory rate 2022-11-21 21:40:00 16 /min [facility] Oxygen saturation in Arterial blood by Pulse oximetry 2022-11-21 21:40:00 99 /min General acute hospital Body temperature 2022-11-21 18:07:00 37.28 Irene [facility] Body weight 2022-11-21 18:07:00 68.04 kg [facility] BMI 2022-11-21 18:07:00 28.34 kg/m2 [facility] Systolic blood pressure 2022-09-05 17:22:00 139 mm[Hg] General acute hospital Diastolic blood pressure 2022-09-05 17:22:00 91 mm[Hg] General acute hospital Heart rate 2022-09-05 17:22:00 120 /min [facility] Respiratory rate 2022-09-05 17:22:00 18 /min [facility] Oxygen saturation in Arterial blood by Pulse oximetry 2022-09-05 17:22:00 99 /min General acute hospital Body temperature 2022-09-05 13:43:00 37.11 Irene [facility] Body weight 2022-09-05 13:43:00 68.04 kg [facility] BMI 2022-09-05 13:43:00 28.34 kg/m2 [facility] Systolic blood pressure 2022-08-01 00:49:00 138 mm[Hg] General acute hospital Diastolic blood pressure 2022-08-01 00:49:00 104 mm[Hg] General acute hospital Heart rate 2022-08-01 00:49:00 108 /min [facility] Respiratory rate 2022-08-01 00:49:00 18 /min [facility] Oxygen saturation in Arterial blood by Pulse oximetry 2022-08-01 00:49:00 99 /min General acute hospital Body temperature 2022-07-31 22:52:00 37.11 Irene [facility] Body height 2022-07-31 22:52:00 154.9 cm [facility] Body weight 2022-07-31 22:52:00 68.04 kg [facility] BMI 2022-07-31 22:52:00 28.34 kg/m2 [facility] Systolic blood pressure 2022-07-15 15:32:00 130 mm[Hg] General acute hospital Diastolic blood pressure 2022-07-15 15:32:00 90 mm[Hg] General acute hospital Heart rate 2022-07-15 15:31:00 81 /min [facility] Body temperature 2022-07-15 15:31:00 36.94 Irene [facility] Respiratory rate 2022-07-15 15:31:00 16 /min [facility] Body weight 2022-07-15 15:31:00 68.493 kg [facility] BMI 2022-07-15 15:31:00 28.53 kg/m2 [facility] Oxygen saturation in Arterial blood by Pulse oximetry 2022-07-15 15:31:00 99 /min [facility] acute hospital Systolic blood pressure 2022-06-23 15:26:00 111 mm[Hg] General acute hospital Diastolic blood pressure 2022-06-23 15:26:00 75 mm[Hg] General acute hospital Heart rate 2022-06-23 15:26:00 108 /min [facility] Body temperature 2022-06-23 15:26:00 36.83 Irene [facility] Respiratory rate 2022-06-23 15:26:00 18 /min [facility] Body height 2022-06-23 15:26:00 154.9 cm [facility] Body weight 2022-06-23 15:26:00 71.385 kg [facility] BMI 2022-06-23 15:26:00 29.74 kg/m2 [facility] Oxygen saturation in Arterial blood by Pulse oximetry 2022-06-23 15:26:00 99 /min [facility] acute hospital Systolic blood pressure 2022-05-05 22:05:00 126 mm[Hg] General acute hospital Diastolic blood pressure 2022-05-05 22:05:00 75 mm[Hg] General acute hospital Heart rate 2022-05-05 22:05:00 99 /min [facility] Respiratory rate 2022-05-05 22:05:00 16 /min [facility] Oxygen saturation in Arterial blood by Pulse oximetry 2022-05-05 22:05:00 99 /min General acute hospital Body temperature 2022-05-05 18:24:00 37.11 Irene [facility] Body height 2022-05-05 18:24:00 154.9 cm [facility] Body weight 2022-05-05 18:24:00 54.432 kg [facility] BMI 2022-05-05 18:24:00 22.67 kg/m2 [facility] Systolic blood pressure 2022-04-26 14:28:00 135 mm[Hg] General acute hospital Diastolic blood pressure 2022-04-26 14:28:00 95 mm[Hg] General acute hospital Heart rate 2022-04-26 14:28:00 93 /min [facility] Body temperature 2022-04-26 14:28:00 36.89 Irene [facility] Respiratory rate 2022-04-26 14:28:00 18 /min [facility] Body height 2022-04-26 14:28:00 [facility] 2022-04-26 14:28:00 54.432 [facility] 2022-04-26 14:28:00 22.67 kg/m2 [facility] Oxygen saturation in Arterial blood by Pulse oximetry 2022-04-26 14:28:00 100 /min [facility] acute hospital Systolic blood pressure 2022-04-26 00:21:00 151 mm[Hg] General acute hospital Diastolic blood pressure 2022-04-26 00:21:00 98 mm[Hg] General acute hospital Heart rate 2022-04-26 00:21:00 98 /min [facility] Body temperature 2022-04-26 00:21:00 36.72 Irene [facility] Respiratory rate 2022-04-26 00:21:00 18 /min [facility] Body height 2022-04-26 00:21:00 154.9 cm [facility] Body weight 2022-04-26 00:21:00 54.432 kg [facility] BMI 2022-04-26 00:21:00 22.67 kg/m2 [facility] Oxygen saturation in Arterial blood by Pulse oximetry 2022-04-26 00:21:00 100 /min [facility] acute hospital Systolic blood pressure 2022-04-09 14:39:00 122 mm[Hg] General acute hospital Diastolic blood pressure 2022-04-09 14:39:00 84 mm[Hg] General acute hospital Heart rate 2022-04-09 14:39:00 96 /min [facility] 2022-04-09 14:39:00 154.9 cm [facility] Body weight 2022-04-09 14:39:00 60.328 kg [facility] BMI 2022-04-09 14:39:00 25.13 kg[facility]2 [facility] in Arterial blood by Pulse oximetry 2022-04-09 14:39:00 98 /min [facility] acute hospital Systolic blood pressure 2022-04-07 22:43:36 131 mm[Hg] General acute hospital Diastolic blood pressure 2022-04-07 22:43:36 83 mm[Hg] General acute hospital Heart rate 2022-04-07 22:43:36 113 /min [facility] Respiratory rate 2022-04-07 22:43:36 18 /min [facility] Oxygen saturation in Arterial blood by Pulse oximetry 2022-04-07 22:43:36 97 /min General acute hospital Body temperature 2022-04-07 19:41:00 37.17 Irene [facility] Body height 2022-04-07 19:41:00 154.9 cm [facility] Body weight 2022-04-07 19:41:00 60.328 kg [facility] BMI 2022-04-07 19:41:00 25.13 kg/m2 [facility] Systolic blood pressure 2022-03-24 19:00:00 125 mm[Hg] General acute hospital Diastolic blood pressure 2022-03-24 19:00:00 86 mm[Hg] General acute hospital Heart rate 2022-03-24 19:00:00 93 /min [facility] Respiratory rate 2022-03-24 19:00:00 17 /min [facility] Oxygen saturation in Arterial blood by Pulse oximetry 2022-03-24 19:00:00 97 /min General acute hospital Body temperature 2022-03-24 13:33:00 36.78 Irene [facility] Systolic blood pressure 2022-03-15 19:23:00 128 mm[Hg] General acute hospital Diastolic blood pressure 2022-03-15 19:23:00 89 mm[Hg] General acute hospital Heart rate 2022-03-15 19:23:00 104 /min [facility] Body weight 2022-03-15 19:23:00 60.328 kg [facility] BMI 2022-03-15 19:23:00 25.13 kg/m2 [facility] Oxygen saturation in Arterial blood by Pulse oximetry 2022-03-15 19:23:00 98 /min General acute hospital Systolic blood pressure 2022-03-15 15:02:00 115 mm[Hg] General acute hospital Diastolic blood pressure 2022-03-15 15:02:00 70 mm[Hg] General acute hospital Heart rate 2022-03-15 15:02:00 85 /min [facility] Respiratory rate 2022-03-15 15:02:00 20 /min [facility] Oxygen saturation in Arterial blood by Pulse oximetry 2022-03-15 15:02:00 99 /min General acute hospital Body temperature 2022-03-15 13:38:00 36.94 Irene [facility] Body height 2022-03-15 13:38:00 154.9 cm [facility] Body weight 2022-03-15 13:38:00 54.432 kg [facility] BMI 2022-03-15 13:38:00 22.67 kg/m2 [facility] Systolic blood pressure 2022-03-11 16:30:00 124 mm[Hg] General acute hospital Diastolic blood pressure 2022-03-11 16:30:00 88 mm[Hg] General acute hospital Heart rate 2022-03-11 16:30:00 93 /min [facility] Body temperature 2022-03-11 16:30:00 36.67 Irene [facility] Respiratory rate 2022-03-11 16:30:00 14 /min [facility] Oxygen saturation in Arterial blood by Pulse oximetry 2022-03-11 16:30:00 100 /min General acute hospital Body height 2022-03-11 14:19:00 154.9 cm [facility] Body weight 2022-03-11 14:19:00 58.968 kg [facility] BMI 2022-03-11 14:19:00 24.56 kg/m2 [facility] Systolic blood pressure 2022-02-27 14:14:00 140 mm[Hg] General acute hospital Diastolic blood pressure 2022-02-27 14:14:00 90 mm[Hg] General acute hospital Heart rate 2022-02-27 14:14:00 103 /min [facility] Body height 2022-02-27 14:14:00 154.9 cm [facility] Body weight 2022-02-27 14:14:00 59.194 kg [facility] BMI 2022-02-27 14:14:00 24.66 kg/m2 [facility] Oxygen saturation in Arterial blood by Pulse oximetry 2022-02-27 14:14:00 100 /min General acute hospital Systolic blood pressure 2022-02-27 13:19:00 131 mm[Hg] General acute hospital Diastolic blood pressure 2022-02-27 13:19:00 86 mm[Hg] General acute hospital Heart rate 2022-02-27 13:19:00 102 /min [facility] Body temperature 2022-02-27 13:19:00 36.33 Irene [facility] Body height 2022-02-27 13:19:00 154.9 cm [facility] Body weight 2022-02-27 13:19:00 58.968 kg [facility] BMI 2022-02-27 13:19:00 24.56 kg/m2 [facility] Oxygen saturation in Arterial blood by Pulse oximetry 2022-02-27 13:19:00 99 /min General acute hospital Systolic blood pressure 2022-02-21 08:06:00 135 mm[Hg] General acute hospital Diastolic blood pressure 2022-02-21 08:06:00 97 mm[Hg] General acute hospital Heart rate 2022-02-21 08:06:00 98 /min [facility] Respiratory rate 2022-02-21 08:06:00 16 /min [facility] Oxygen saturation in Arterial blood by Pulse oximetry 2022-02-21 08:06:00 97 /min General acute hospital Body temperature 2022-02-21 06:16:00 36.94 Irene [facility] Body height 2022-02-21 06:16:00 154.9 cm [facility] Body weight 2022-02-21 06:16:00 60.963 kg [facility] BMI 2022-02-21 06:16:00 25.39 kg/m2 [facility] Systolic blood pressure 2022 20:08:00 136 mm[Hg] General acute hospital Diastolic blood pressure 2022 20:08:00 96 mm[Hg] General acute hospital Heart rate 2022 20:08:00 100 /min [facility] Respiratory rate 2022 20:08:00 20 /min [facility] Oxygen saturation in Arterial blood by Pulse oximetry 2022 20:08:00 98 /min General acute hospital Body temperature 2022 16:56:00 37.06 Irene [facility] Body weight 2022 16:56:00 54.432 kg [facility] BMI 2022 16:56:00 22.67 kg/m2 [facility] Systolic blood pressure 2022-02-05 14:31:00 128 mm[Hg] General acute hospital Diastolic blood pressure 2022-02-05 14:31:00 84 mm[Hg] General acute hospital Heart rate 2022-02-05 14:31:00 86 /min [facility] Body temperature 2022-02-05 14:31:00 37.89 Irene [facility] Respiratory rate 2022-02-05 14:31:00 18 /min [facility] Body height 2022-02-05 14:31:00 154.9 cm [facility] Body weight 2022-02-05 14:31:00 54.432 kg [facility] BMI 2022-02-05 14:31:00 22.67 kg/m2 [facility] Oxygen saturation in Arterial blood by Pulse oximetry 2022-02-05 14:31:00 98 /min General acute hospital Systolic blood pressure 2022-01-18 14:50:00 144 mm[Hg] General acute hospital Diastolic blood pressure 2022-01-18 14:50:00 92 mm[Hg] General acute hospital Heart rate 2022-01-18 14:50:00 94 /min [facility] Respiratory rate 2022-01-18 14:50:00 20 /min [facility] Oxygen saturation in Arterial blood by Pulse oximetry 2022-01-18 14:50:00 99 /min General acute hospital Body weight 2022-01-18 10:18:00 54.432 kg [facility] BMI 2022-01-18 10:18:00 22.67 kg/m2 [facility] Body temperature 2022-01-18 10:15:[address] [facility] Systolic blood pressure 2022-01-15 15:48:26 125 mm[Hg] General acute hospital Diastolic blood pressure 2022-01-15 15:48:26 85 mm[Hg] General acute hospital Heart rate 2022-01-15 15:48:26 95 /min [facility] Respiratory rate 2022-01-15 15:48:26 18 /min [facility] Oxygen saturation in Arterial blood by Pulse oximetry 2022-01-15 15:48:26 98 /min General acute hospital Body temperature 2022-01-15 13:32:[address] [facility] Body height 2022-01-15 13:32:00 154.9 cm [facility] [facility] Body weight 2022-01-15 13:32:00 54.432 kg [facility] BMI 2022-01-15 13:32:00 22.67 kg/m2 [facility] Systolic blood pressure 2022-01-09 00:37:11 127 mm[Hg] General acute hospital Diastolic blood pressure 2022-01-09 00:37:11 90 mm[Hg] General acute hospital Heart rate 2022-01-09 00:37:11 94 /min [facility] Body temperature 2022-01-09 00:37:[address] [facility] Respiratory rate 2022-01-09 00:37:11 16 /min [facility] Oxygen saturation in Arterial blood by Pulse oximetry 2022-01-09 00:37:11 97 /min General acute hospital Body height 2022-01-08 23:03:00 154.9 cm [facility] Body weight 2022-01-08 23:03:00 58.06 kg [facility] BMI 2022-01-08 23:03:00 24.19 kg/m2 [facility] Systolic blood pressure 2021-12-12 18:00:00 126 mm[Hg] General acute hospital Diastolic blood pressure 2021-12-12 18:00:00 87 mm[Hg] General acute hospital Heart rate 2021-12-12 18:00:00 86 /min [facility] Body temperature 2021-12-12 18:00:00 36.89 Irene [facility] Respiratory rate 2021-12-12 18:00:00 18 /min [facility] Body height 2021-12-12 18:00:00 154.9 cm [facility] Body weight 2021-12-12 18:00:00 57.153 kg [facility] BMI 2021-12-12 18:00:00 23.81 kg/m2 [facility] Systolic blood pressure 2023-01-14 16:32:00 138 mm[Hg] General acute hospital Diastolic blood pressure 2023-01-14 16:32:00 84 mm[Hg] General acute hospital Heart rate 2023-01-14 16:32:00 67 /min [facility] Body temperature 2023-01-14 16:32:00 36.5 Irene [facility] Respiratory rate 2023-01-14 16:32:00 16 /min [facility] Oxygen saturation in Arterial blood by Pulse oximetry 2023-01-14 16:32:00 99 /min General acute hospital Body height 2023-01-12 09:05:00 154.9 cm [facility] Body weight 2023-01-12 09:05:00 58.968 kg [facility] BMI 2023-01-12 09:05:00 24.56 kg/m2 [facility] Procedures Procedure Date / Time Performed Performing Clinician Source POCT TEST 2024-05-19 20:10:00 Anamaria Gonzales [facility] LIPASE 2024-05-19 19:53:00 Anamaria Gonzales [facility] COMP. METABOLIC PANEL (08817) 2024-05-19 19:53:00 Anamaria Gonzales [facility] CBC WITH DIFF 2024-05-19 19:53:00 Anamaria Gonzales [facility] URINALYSIS 2024-05-19 19:53:00 Anamaria Gonzales [facility] CT ABDOMEN PELVIS WO CONTRAST 2024-04-19 14:51:33 Rosendo Levy [facility] POCT TEST 2024-04-19 14:21:00 Rosendo Levy [facility] LIPASE 2024-04-19 14:18:00 Rosendo Levy [facility] COMP. METABOLIC PANEL ([id number]) 2024-04-19 14:18:00 Rosendo Levy [facility] CBC WITH DIFF 2024-04-19 14:18:00 Rosendo Levy [facility] URINALYSIS 2024-04-19 14:18:00 Rosendo Levy [facility] XR ANKLE <3 VW LEFT 2024-04-12 18:36:00 Niranjan Neeta [facility] XR FOOT <3 VW LEFT 2024-04-12 18:36:00 Niranjan [facility] XR TIBIA FIBULA 2 VW LEFT 2024-04-12 18:36:00 Niranjan Neeta [facility] CT TRAUMA HEAD WO CONTRAST 2024-04-12 18:27:49 Niranjan Neeta [facility] CT TRAUMA CERVICAL SPINE WO CONTRAST 2024-04-12 18:27:49 Niranjan Neeta [facility] CT TRAUMA THORACIC SPINE WO CONTRAST 2024-04-12 18:27:49 Niarnjan Neeta [facility] CT TRAUMA LUMBAR SPINE WO CONTRAST 04-12 18:27:49 Niranjan Neeta [facility] XR CHEST 1 VW 2024-04-12 15:50:27 Maggie Hamilton [facility] COMP. METABOLIC PANEL ([id number]) 2024-04-12 15:43:00 Maggie Hamilton [facility] CBC WITH DIFF 2024-04-12 15:43:00 Maggie Hamilton [facility] HB ABO GROUPING 2024-04-12 15:43:00 Maggie Hamilton [facility] ER FAST ULTRASOUND 2024-04-12 15:36:51 Maggie Hamilton [facility] MAGNESIUM 2024-03-13 10:20:00 Ellis Burgess [facility] BASIC METABOLIC PANEL (NA, K , CL, CO2, GLUCOSE, BUN, CREATININE, CA) 2024-03-13 10:20:00 Ellis Burgess [facility] CBC WITH DIFF 2024-03-13 10:20:00 Ellis Burgess [facility] FECAL PATHOGENS BY PCR 2024-03-12 17:51:00 Mars [facility] CLOSTRIDIUM DIFFICILE TOXIN 2024-03-12 17:50:00 Mars [facility] LAB ONLY C. DIFFICILE TOXIN B GENE (TCDB) BY PCR 2024-03-12 17:50:00 Mars [facility] SUPERIOR MESENTERIC ARTERY D UPLEX - BY VASCULAR LAB 2024-03-12 14:06[facility]-03-12 11:14[facility]EL (NA, K , CL, CO2, GLUCOSE, BUN, CREATININE, CA) 2024-03-12 11:14:00 [facility]FF 2024-03-12 11:14:00 [facility] 2024-03-11 10:47:00 Kitty Meryl [facility] BASIC METABOLIC PANEL (NA, K , CL, CO2, GLUCOSE, BUN, CREATININE, CA) 2024-03-11 10:47:00 Kitty Meryl [facility] CBC WITH DIFF 2024-03-11 10:47:00 [facility] PELVIS WO CONTRAST 2024-03-10 19:46:10 Venkat [facility] LIPASE 2024-03-10 15:42:00 Venkat [facility] TEST, SERUM 2024-03-10 15:42:00 Fidel [facility] COMP. METABOLIC PANEL (55814) 2024-03-10 15:42:00 Venkat [facility] URINE DRUG (IMMUNOASSAY) - COMPREHENSIVE DRUG SCREEN 2024-03-10 15:42:00 Kitty [facility] CBC WITH DIFF 2024-03-10 15:42:00 Venkat [facility] URINALYSIS 2024-03-10 15:42:00 Venkat [facility] EXTRA TUBE DK. GREEN 2024-03-10 15:42:00 Fidel [facility] CT ABDOMEN PELVIS WO CONTRAST 2024-03-04 13:43:16 [facility] 2024-03-04 13:14:00 Fabio Avila [facility] LIPASE 2024-03-04 13:13:00 Fabio Avila [facility] COMP. METABOLIC PANEL ([id number]) 2024-03-04 13:13:00 Fabio Avila [facility] CBC WITH DIFF 2024-03-04 13:13:00 [facility] 2024-03-04 13:13:00 Fabio Avila [facility] FLEXIBLE SIGMOIDOSCOPY (ENDO) 2024-02-27 15:42:37 Hany Bo [facility] FLEXIBLE SIGMOIDOSCOPY (ENDO) 2024-02-27 15:42:37 Hany Bo [facility] EGD (ENDO) 2024-02-27 15:39:44 Hany Bo [facility] EGD (ENDO) 2024-02-27 15:39:44 Hany Bo [facility] ESOPHAGOGASTRODUODENOSCOPY 2024-02-27 14:11:00 [facility] 2024-02-27 14:11:00 Jas Mensah [facility] MAGNESIUM 2024-02-27 09:37:00 Jose Carlos Urbina [facility] HEPATIC FUNCTION PANEL (8007 6) (ALB,T.PRO,BILI T,BU/BC,ALT,AST,ALK PHOS) 2024-02-27 09:37:00 Jose Carlos Urbina [facility] BASIC METABOLIC PANEL (NA, K , CL, CO2, GLUCOSE, BUN, CREATININE, CA) 2024-02-27 09:37:00 Jose Carlos Urbina [facility] CBC WITH DIFF 2024-02-27 09:37:00 Jose Carlos Urbina [facility] MAGNESIUM 2024-02-27 09:37:00 Jose Carlos Urbina [facility] HEPATIC FUNCTION PANEL (8007 6) (ALB,T.PRO,BILI T,BU/BC,ALT,AST,ALK PHOS) 2024-02-27 09:37:00 Jose Carlos Urbina [facility] BASIC METABOLIC PANEL (NA, K , CL, CO2, GLUCOSE, BUN, CREATININE, CA) 2024-02-27 09:37:00 Jose Carlos Urbina [facility] CBC WITH DIFF 2024-02-27 09:37:00 Jose Carlos Urbina Artur [facility] CALPROTECTIN, FECAL 2024-02-26 22:49:00 Jose Carlos Urbina [facility] CALPROTECTIN, FECAL 2024-02-26 22:49:00 Jose Carlos Urbina [facility] XR KUB 2024-02-26 20:00:00 Jose Carlos Urbina [facility] XR KUB 2024-02-26 20:00:00 Jose Carlos Urbina [facility] MAGNESIUM 2024-02-26 16:17:00 Naty Mensah [facility] HEPATIC FUNCTION PANEL (8007 6) (ALB,T.PRO,BILI T,BU/BC,ALT,AST,ALK PHOS) 2024-02-26 16:17:00 Naty Mensah [facility] BASIC METABOLIC PANEL (NA, K , CL, CO2, GLUCOSE, BUN, CREATININE, CA) 2024-02-26 16:17:00 Chitra [facility] PROTHROMBIN TIME / INR 2024-02-26 16:17:00 Chitra [facility] MAGNESIUM 2024-02-26 16:17:00 Chitra [facility] HEPATIC FUNCTION PANEL (8007 6) (ALB,T.PRO,BILI T,BU/BC,ALT,AST,ALK PHOS) 2024-02-26 16:17:00 Chitra [facility] BASIC METABOLIC PANEL (NA, K , CL, CO2, GLUCOSE, BUN, CREATININE, CA) 2024-02-26 16:17:00 Chitra [facility] PROTHROMBIN TIME / INR 2024-02-26 16:17:00 Chitra [facility] MR ABDOMEN W WO CONTRAST MRCP 2024-02-25 17:15:21 Chitra [facility] MR ABDOMEN W WO CONTRAST MRCP 2024-02-25 17:15:21 Chitra [facility] CREATINE KINASE 2024-02-25 10:52:00 Chitra [facility] HEPATIC FUNCTION PANEL (8007 6) (ALB,T.PRO,BILI T,BU/BC,ALT,AST,ALK PHOS) 2024-02-25 10:52:00 Jose Carlos Uribna [facility] BASIC METABOLIC PANEL (NA, K , CL, CO2, GLUCOSE, BUN, CREATININE, CA) 2024-02-25 10:52:00 Jose Carlos Urbina [facility] CREATINE KINASE 2024-02-25 10:52:00 Chitra [facility] HEPATIC FUNCTION PANEL (8007 6) (ALB,T.PRO,BILI T,BU/BC,ALT,AST,ALK PHOS) 2024-02-25 10:52:00 Jose Carlos Urbina [facility] BASIC METABOLIC PANEL (NA, K , CL, CO2, GLUCOSE, BUN, CREATININE, CA) 2024-02-25 10:52:00 Jose Carlos Urbina [facility] MAGNESIUM 2024-02-24 09:54:00 Naty Mensah [facility] HEPATIC FUNCTION PANEL (8007 6) (ALB,T.PRO,BILI T,BU/BC,ALT,AST,ALK PHOS) 2024-02-24 09:54:00 Jose Carlos Urbina [facility] BASIC METABOLIC PANEL (NA, K , CL, CO2, GLUCOSE, BUN, CREATININE, CA) 2024-02-24 09:54:00 Jose Carlos Urbina [facility] CBC WITH DIFF 2024-02-24 09:54:00 Naty Mensah [facility] MAGNESIUM 2024-02-24 09:54:00 Chitra [facility] HEPATIC FUNCTION PANEL (8007 6) (ALB,T.PRO,BILI T,BU/BC,ALT,AST,ALK PHOS) 2024-02-24 09:54:00 Jose Carlos Urbina [facility] BASIC METABOLIC PANEL (NA, K , CL, CO2, GLUCOSE, BUN, CREATININE, CA) 2024-02-24 09:54:00 Jose Carlos Urbina [facility] CBC WITH DIFF 2024-02-24 09:54:00 Susannah Mensahesha [facility] POCT GLUCOSE (AUTOMATED) 2024-02-24 01:34:00 Hany Bo [facility] POCT GLUCOSE (AUTOMATED) 2024-02-24 01:34:00 Hany Bo [facility] HEPATIC FUNCTION PANEL (8007 6) (ALB,T.PRO,BILI T,BU/BC,ALT,AST,ALK PHOS) 2024-02-23 17:51:00 Chitra [facility] CBC WITH DIFF 2024-02-23 17:51:00 Chitra [facility] HAV ANTIBODY (IGG AND IGM) 2024-02-23 17:51:00 Chitra [facility] ENDOMYSIAL AB, IGA BY IFA 2024-02-23 17:51:00 Chitra [facility] VITAMIN D, 25-[place] 2024-02-23 17:51:00 [facility] (8007 6) (ALB,T.PRO,BILI T,BU/BC,ALT,AST,ALK PHOS) 2024-02-23 17:51:00 Chitra [facility] CBC WITH DIFF 2024-02-23 17:51:00 Chitra [facility] HAV ANTIBODY (IGG AND IGM) 2024-02-23 17:51:00 Chitra [facility] ENDOMYSIAL AB, IGA BY IFA 2024-02-23 17:51:00 Chitra [facility] VITAMIN D, 25-OH 2024-02-23 17:51:00 Chitra [facility] INFLUENZA A/B RSV COVID NAAT 2024-02-22 20:12:00 Chitra [facility] LAB ONLY COVID INTERPRETATION 2024-02-22 20:12:00 Chitra [facility] INFLUENZA A/B RSV COVID NAAT 2024-02-22 20:12:00 Chitra [facility] LAB ONLY COVID INTERPRETATION 2024-02-22 20:12:00 Chitra [facility] XR CHEST 2 VW 2024-02-22 17:16:00 [place], [facility] XR CHEST 2 VW 2024-02-22 17:16:00 [place], Adriana [facility] US ABDOMEN LIMITED 2024-02-22 16:59:52 [place], Adriana [facility] US ABDOMEN LIMITED 2024-02-22 16:59:52 [place], Adriana [facility] LIPASE 2024-02-22 15:19:00 Stephanie [facility] TEST, SERUM 2024-02-22 15:19:00 Stephanie [facility] C-REACTIVE PROTEIN 2024-02-22 15:19:00 [facility]OP[facility] 2024-02-22 15:19:00 Stephanie Lou [facility] HEPATIC FUNCTION PANEL (8007 6) (ALB,T.PRO,BILI T,BU/BC,ALT,AST,ALK PHOS) 2024-02-22 15:19:00 Chitra [facility] COMP. METABOLIC PANEL (97044) 2024-02-22 15:19:00 Stephanie Lou [facility] URINE DRUG (IMMUNOASSAY) - COMPREHENSIVE DRUG SCREEN 2024-02-22 15:19:00 Chitra [facility] SEDIMENTATION RATE 2024-02-22 15:19:00 Chitra [facility] CBC WITH DIFF 2024-02-22 15:19:00 Stephanie Lou [facility] URINALYSIS 2024-02-22 15:19:00 Stephanie Lou [facility] HEPATITIS B SURFACE ANTIBODY 2024-02-22 15:19:00 Chitra [facility] HEPATITIS B SURFACE ANTIGEN 2024-02-22 15:19:00 Chitra [facility] HCV ANTIBODY 2024-02-22 15:19:00 Chitra [facility] HBC ANTIBODY (IGM & IGG) 2024-02-22 15:19:00 Chitra [facility] HIV 1/2 AG-AB WITH REFLEX 2024-02-22 15:19:00 Chitra [facility] DEAMIDATED GLIADIN IGG 2024-02-22 15:19:00 Chitra [facility] LIPASE 2024-02-22 15:19:00 Stephanie Lou [facility] TEST, SERUM 2024-02-22 15:19:00 Stephanie Lou [facility] C-REACTIVE PROTEIN 2024-02-22 15:19:00 Chitra [facility] TROPONIN I 2024-02-22 15:19:00 Stephanie Lou [facility] HEPATIC FUNCTION PANEL (8007 6) (ALB,T.PRO,BILI T,BU/BC,ALT,AST,ALK PHOS) 2024-02-22 15:19:00 [facility] METABOLIC PANEL ([id number]) 2024-02-22 15:19[facility]00 [facility] (IMMUNOASSAY) - COMPREHENSIVE DRUG SCREEN 2024-02-22 15:19:00 [facility] SEDIMENT[facility] R[facility] 2024-02-22 15:19:00 [facility] CBC WITH DIFF 2024-02-22 15:19:00 [facility] 2024-02-22 15:19:00 Stephanie Lou [facility] HEPATITIS B SURFACE ANTIBODY 2024-02-22 15:19:00 Chitra [facility] HEPATITIS B SURFACE ANTIGEN 2024-02-22 15:19:00 Chitra [facility] HCV ANTIBODY 2024-02-22 15:19:00 Chitar [facility] HBC ANTIBODY (IGM & IGG) 2024-02-22 15:19:00 Chitra [facility] HIV 1/2 AG-AB WITH REFLEX 2024-02-22 15:19:00 Chitra [facility] DEAMIDATED GLIADIN IGG 2024-02-22 15:19:00 Chitra [facility] COMP. METABOLIC PANEL ([id number]) 2023-05-19 17:22:[address] [facility] CT ABDOMEN PELVIS W CONTRAST 2023-05-19 15:59:[address] [facility] LIPASE 2023-05-19 15:43:[address] [facility] CBC WITH DIFF 2023-05-19 15:43:[address] [facility] URINALYSIS 2023-05-19 15:32:[address] [facility] POCT TEST 2023-05-19 15:31:[address] [facility] CONSENT/REFUSAL FOR DIAGNOSI S AND TREATMENT 2023-05-19 14:37:15 Doctor Unassigned, [place] [facility] PHOSPHORUS 2023-01-15 08:15:00 Benita Rockwell [facility] MAGNESIUM 2023-01-15 08:15:00 [facility] (NA, K , CL, CO2, GLUCOSE, BUN, CREATININE, CA) 2023-01-15 08:15:00 [facility]FF 2023-01-15 08:15:[address] [facility] PROTHROMBIN TIME / INR 2023-01-15 08:15:00 Benita Rockwell [facility] MAGNESIUM 2023-01-14 10:14:00 [facility] 2023-01-14 10:14:00 [facility] MET[facility]OLIC PANEL (NA, K , CL, CO2, GLUCOSE, BUN, CREATININE, CA) 2023-01-14 10:14:00 [facility]FF 2023-01-14 10:14:00 Benita Rockwell [facility] PHOSPHORUS 2023-01-14 10:14:00 Benita Rockwell [facility] MAGNESIUM 2023-01-14 10:14:00 [facility] MET[facility]OLIC PANEL (NA, K , CL, CO2, GLUCOSE, BUN, CREATININE, CA) 2023-01-14 10:14:00 [facility]FF 2023-01-14 10:14:00 [facility] WITH DIFF 2023-01-13 10:45:00 Vaishnavi [facility] BASIC METABOLIC PANEL (NA, K , CL, CO2, GLUCOSE, BUN, CREATININE, CA) 2023-01-13 10:45:00 Vaishnavi [facility] MAGNESIUM 2023-01-13 10:45:00 Vaishnavi [facility] PHOSPHORUS 2023-01-13 10:45:00 Vaishnavi, [facility] HEPATIC FUNCTION PANEL (8007 6) (ALB,T.PRO,BILI T,BU/BC,ALT,AST,ALK PHOS) 2023-01-13 10:45:00 Vaishnavi, [facility] PHOSPHORUS 2023-01-13 10:45:00 Vaishnavi, [facility] MAGNESIUM 2023-01-13 10:45:00 Vaishnavi, [facility] HEPATIC FUNCTION PANEL (8007 6) (ALB,T.PRO,BILI T,BU/BC,ALT,AST,ALK PHOS) 2023-01-13 10:45:00 Vaishnavi, [facility] BASIC METABOLIC PANEL (NA, K , CL, CO2, GLUCOSE, BUN, CREATININE, CA) 2023-01-13 10:45:00 Vaishnavi, [facility] CBC WITH DIFF 2023-01-13 10:45:00 Vaishnavi, [facility] GLUCOSE BODY FLUID 2023-01-12 20:44:00 Vaishnavi, [facility] BODY FLUID MANUAL DIFF 2023-01-12 20:44:00 Vaishnavi, [facility] T.PROTEIN BODY FLUID 2023-01-12 20:44:00 Vaishnavi, [facility] ASPIRATE OR ABSCESS CULTURE(AEROBIC/ANAEROBIC) 2023-01-12 20:44:00 Vaishnavi, [facility] LDH TOTAL BODY FLUID 2023-01-12 20:44:00 Vaishnavi, [facility] GLUCOSE BODY FLUID 2023-01-12 20:44:00 Vaishnavi, [facility] T.PROTEIN BODY FLUID 2023-01-12 20:44:00 Vaishnavi, [facility] BODY FLUID DIRECT COUNT 2023-01-12 20:44:00 Vaishnavi, [facility] ASPIRATE OR ABSCESS CULTURE(AEROBIC/ANAEROBIC) 2023-01-12 20:44:00 Vaishnavi, [facility] LDH TOTAL BODY FLUID 2023-01-12 20:44:00 Vaishnavi, [facility] PROTHROMBIN TIME / INR 2023-01-12 08:13:00 Vaishnavi, [facility] PROTHROMBIN TIME / INR 2023-01-12 08:13:00 Vaishnavi, [facility] COMP. METABOLIC PANEL (40401) 2023-01-12 03:49:00 Ricky [facility] COMP. METABOLIC PANEL (41657) 2023-01-12 03:49:00 Ciera García [facility] CT ABDOMEN PELVIS W CONTRAST 2023-01-12 03:32:06 Ricky [facility] CT ABDOMEN PELVIS W CONTRAST 2023-01-12 03:32:06 Ricky [facility] POCT TEST 2023-01-12 03:02:00 Ricky [facility] POCT TEST 2023-01-12 03:02:00 Ricky [facility] URINALYSIS 2023-01-12 02:56:00 Ricky [facility] LIPASE 2023-01-12 02:56:00 Ricky [facility] TOTAL BETA HCG ASSAY 2023-01-12 02:56:00 Ricky [facility] CBC WITH DIFF 2023-01-12 02:56:00 Ricky [facility] EXTRA TUBE ORANGE 2023-01-12 02:56[facility]00 [facility] 2023-01-12 02:56:00 [facility] 2023-01-12 02:56:00 Ricky [facility] TOTAL BETA HCG ASSAY 2023-01-12 02:56:00 Ricky [facility] CBC WITH DIFF 2023-01-12 02:56:00 Ricky [facility] URINALYSIS 2023-01-12 02:56:00 Ricky [facility] EXTRA TUBE LAV 2023-01-12 02:56:00 [facility] ORANGE 2023-01-12 02:56:00 Miguel Ángel Siddiqui [facility] CONSENT/REFUSAL FOR DIAGNOSI S AND TREATMENT 2023-01-12 01:46:10 Doctor Unassigned, [place] [facility] CONSENT/REFUSAL FOR DIAGNOSI S AND TREATMENT 2023-01-12 01:46:10 Doctor Unassigned, [place] [facility] ASSIGNMENT OF BENEFITS 2022-11-21 19:49:02 Doctor Unassigned, [place] [facility] ASSIGNMENT OF BENEFITS 2022-11-21 19:49:02 Doctor Unassigned, [place] [facility] CONSENT/REFUSAL FOR DIAGNOSI S AND TREATMENT 2022-11-21 18:03:25 Doctor Unassigned, [place] [facility] CONSENT/REFUSAL FOR DIAGNOSI S AND TREATMENT 2022-11-21 18:03:25 Doctor Unassigned, [place] [facility] EMERGENCY SERVICES AGREEMENT S AND AUTHORIZATIONS 2022-11-21 05:01:00 Doctor Unassigned, [place] [facility] CONSENT/REFUSAL FOR DIAGNOSI S AND TREATMENT 2022-09-05 13:42:02 Doctor Unassigned, [place] [facility] LIPASE 2022-07-31 23:13:00 [facility] TEST, SERUM 2022-07-31 23:13:00 [facility] COMP. METABOLIC PANEL ([id number]) 2022-07-31 23:13:00 [facility] CBC WITH DIFF 2022-07-31 23:13:00 [facility] CONSENT/REFUSAL FOR DIAGNOSI S AND TREATMENT 2022-07-31 22:49:17 Doctor Unassigned, [place] [facility] XR ANKLE 3+ VW RIGHT 2022-07-15 16:00:00 Beba Kaur [facility] XR FOOT 3+ VW RIGHT 2022-07-15 16:00:00 Beba Kaur [facility] XR FOOT 3+ VW RIGHT 2022-07-15 16:00:00 Beba Kaur [facility] PATIENT FINANCIAL POLICY 2022-07-15 15:25:53 Doctor Unassigned, [place] [facility] POCT MOLECULAR STREP 2022-06-23 16:06:00 Unknown, Attending [facility] ASSIGNMENT OF BENEFITS 2022-06-23 15:18:28 Doctor Unassigned, [place] [facility] COMP. METABOLIC PANEL (08681) 2022-05-05 19:14[facility] DIFF 2022-05-05 19:14[facility]-05 19:00:00 [facility] URINALYSIS 2022-05-05 18:58:[address] [facility] CT ABDOMEN PELVIS WO CONTRAST 2022-04-26 15:11:[address] [facility] COMP. METABOLIC PANEL (58913) 2022-04-26 14:49:[address] [facility] CBC WITH DIFF 2022-04-26 14:49:[address] [facility] URINALYSIS 2022-04-26 14:49:[address] [facility] POCT TEST 2022-04-26 14:45:[address] [facility] CONSENT/REFUSAL FOR DIAGNOSI S AND TREATMENT 2022-04-26 14:22:29 Doctor Unassigned, [place] [facility] POCT TEST 2022-04-26 01:22:00 [facility]EF[facility] 2022-04-26 00:54:02 Doctor Unassigned, [place] [facility] URINALYSIS 2022-04-26 00:45:[address] [facility] CONSENT/REFUSAL FOR DIAGNOSI S AND TREATMENT 2022-04-26 00:16:47 Doctor Unassigned, [place] [facility] BASIC METABOLIC PANEL (NA, K , CL, CO2, GLUCOSE, BUN, CREATININE, CA) 2022-04-07 22:35:00 Olamide Garvin [facility] CBC WITH DIFF 2022-04-07 22:35:00 Olamide Garvin [facility] URINALYSIS 2022-04-07 21:36:00 Olamide Garvin [facility] URINE DRUG (IMMUNOASSAY) - COMPREHENSIVE DRUG SCREEN W/O REFLEX 2022-04-07 21:36:00 Olamide Garvin [facility] CONSENT/REFUSAL FOR DIAGNOSI S AND TREATMENT 2022-04-07 19:29:15 Doctor Unassigned, [place] [facility] POCT TEST 2022-03-24 14:07:00 Kellie Duncan [facility] CONSENT/REFUSAL FOR DIAGNOSI S AND TREATMENT 2022-03-24 13:27:20 Doctor Unassigned, [place] [facility] CT ABDOMEN PELVIS WO CONTRAST 2022-03-15 14:09:04 Lydia Gould [facility] URINALYSIS 2022-03-15 13:53:00 Lydia Gould [facility] POCT TEST 2022-03-15 13:52:00 Bryanna [facility] CONSENT/REFUSAL FOR DIAGNOSI S AND TREATMENT 2022-03-15 13:37:02 Doctor Unassigned, [place] [facility] POCT TEST 2022-03-11 14:59:00 Angelica Viveros [facility] FLU VACC ([id number]), 6 MO-6 4 YRS, .5ML, IM, QUAD (FLUCELVAX) 2022-02-27 13:34:55 Ca Martinez [facility] NOTICE OF PRIVACY PRACTICES 2022-02-21 06:06:30 Doctor Unassigned, [place] [facility] CONSENT/REFUSAL FOR DIAGNOSI S AND TREATMENT 2022-02-21 06:03:41 Doctor Unassigned, [place] [facility] XR ANKLE <3 VW RIGHT 2022 17:56:42 Maggie Hamilton [facility] CT ABDOMEN PELVIS W CONTRAST 2022 17:44:17 Maggie Hamilton [facility] CT TRAUMA CERVICAL SPINE WO CONTRAST 2022 17:43:49 Maggie Hamilton [facility] POCT TEST 2022 17:27:00 Maggie Hamilton [facility] COMP. METABOLIC PANEL (62019) 2022 17:17:00 Maggie Hamilton [facility] CBC WITH DIFF 2022 17:17:00 Maggie Hamilton [facility] CONSENT/REFUSAL FOR DIAGNOSI S AND TREATMENT 2022 16:53:13 Doctor Unassigned, [place] [facility] US GALL BLADDER 2022-01-18 12:31:09 Rosendo Levy [facility] US PELVIS COMPLETE WITH TRANSVAGINAL 2022-01-18 12:21:13 Melvin Zhao [facility] CT ABDOMEN PELVIS W CONTRAST 2022-01-18 11:20:50 Melvin Zhao [facility] POCT TEST 2022-01-18 10:57:00 Juan Kennedy [facility] COVID-19 (ID NOW RAPID TESTING) 10:57:00 Juan Kennedy [facility] URINALYSIS 2022-01-18 10:47:00 Juan Kennedy [facility] LIPASE 2022-01-18 10:29:00 Juan Kennedy [facility] TEST, SERUM 2022-01-18 10:29:00 Juan Kennedy [facility] HEPATIC FUNCTION PANEL ([id number]) (ALB,T.PRO,BILI T,BU/BC,ALT,AST,ALK PHOS) 2022-01-18 10:29:00 Juan Kennedy [facility] BASIC METABOLIC PANEL (NA, K , CL, CO2, GLUCOSE, BUN, CREATININE, CA) 2022-01-18 10:29:00 Juan Kennedy [facility] CBC WITH DIFF 2022-01-18 10:29:00 Juan Kennedy [facility] CONSENT/REFUSAL FOR DIAGNOSI S AND TREATMENT 2022-01-18 10:13:31 Doctor Unassigned, [place] [facility] CT HEAD WO CONTRAST 2022-01-15 15:22:29 Maura Samayoa [facility] TEST, SERUM 2022-01-15 14:36:00 Maura Samayoa [facility] BASIC METABOLIC PANEL (NA, K , CL, CO2, GLUCOSE, BUN, CREATININE, CA) 2022-01-15 14:36:00 Maura Samayoa [facility] CBC WITH DIFF 2022-01-15 14:36:00 Maura Samayoa [facility] CONSENT/REFUSAL FOR DIAGNOSI S AND TREATMENT 2022-01-15 13:28:12 Doctor Unassigned, [place] [facility] XR CERVICAL SPINE 4 VW 2022-01-09 00:29:16 Gabriela Humberto [facility] XR LUMBAR SPINE 4 VW 2022-01-09 00:29:16 Gabri[facility] XR SPINE THORACIC 3 VW 2022-01-09 00:29:16 Gabriela [facility] URINALYSIS 2022-01-08 23:50:00 [facility] CONSENT/REFUSAL FOR DIAGNOSI S AND TREATMENT 2022-01-08 22:51:08 Doctor Unassigned, [place] [facility] GALV ONLY - VAGINAL PATHOGEN S BY NUCLEIC ACID TESTING 2021-12-12 18:37:00 Prasanna Vargas [facility] URINE CULTURE 2021-12-12 18:32:00 Prasanna Vagras [facility] POCT TEST 2021-12-12 18:31:00 Prasanna Vargas [facility] POCT URINALYSIS W/O SPECIFIC GRAVITY 2021-12-12 18:31:00 Prasanna Vargas [facility] Encounters Start Date/Time End Date/Time Encounter Type Admission Type Attending [facility] Care Facility Care Department Encounter ID Source 2021-03-14 03:14:31 Emergency [facility] [id number] [facility] 2021-03-13 20:05:20 Emergency [facility] [id number] [facility] 2021-03-13 12:48:28 Emergency [facility] [id number] [facility] 2021-03-13 02:43:51 Emergency [facility] [id number] [facility] 2021-03-13 00:27:09 Emergency [facility] [id number] [facility] [place] 2021-03-12 22:10:36 [place] [facility] [place] [id number] 2021-03-12 20:04:05 Emergency [facility] [id number] [facility] 2021-03-12 15:25:05 Emergency [facility] [place] [id number] [facility] 2021-03-12 11:43:36 [place] [facility] [place] [id number] [facility] 2021-03-12 07:41:37 Emergency [facility] [id number] [facility] 2021-03-12 05:43:47 [place] [facility] [place] [id number] [facility] 2021-03-12 03:43:41 [place] [id number] [facility] 2021-03-12 01:31:27 [facility] [id number] [place] 2021-03-12 00:56:44 Emergency X [facility] ERT [id number] [facility] [place] 2021-03-12 00:56:31 [place] [facility] [place] [id number] [facility] [place] 2021-03-11 17:47:02 [place] [id number] [facility] [place] 2021-03-11 16:27:15 [facility] [id number] [facility] [place] 2021-03-11 12:00:58 [place] [id number] [facility] [place] 2021-03-11 10:33:59 [facility] [id number] [facility] 2021-03-11 01:36:52 [place] [facility] [place] [id number] [facility] [place] 2021-03-10 23:35:34 [facility] [id number] [facility] 2021-03-10 19:06:16 [facility] [id number] [facility] [place] 2021-03-10 12:39:47 [facility] [id number] [facility] 2021-03-10 06:54:04 Emergency [facility] [id number] [facility] 2021-03-09 13:25:44 Outpatient [facility] [id number] [facility] 2021-03-09 13:08:01 Outpatient [facility] [id number] [facility] 2021-03-09 12:37:25 Outpatient [facility] [id number] [facility] 2021-03-09 11:51:20 Outpatient [facility] [id number] [facility] 2024-05-19 12:49:00 2024-05-19 16:37:00 Emergency X ANAMARIA GONZALES DONNELL [facility] ERT [id number] [facility] 2024-05-19 12:49:00 2024-05-19 16:37:00 Emergency Anamaria Gonzales [facility] .840.114 350.1.13.10 4.2.7.2.686 [id number] [facility] 2024-04-19 07:55:00 2024-04-19 09:58:00 Emergency X ROSENDO LEVY BRENT [facility] ERT [id number] [facility] 2024-04-19 07:55:00 2024-04-19 09:58:00 Emergency Rosendo Levy [facility] 1..840.114 350.1.13.10 4.2.7.2.686 [id number] [facility] 2024-03-18 00:00:00 2024-04-18 18:19:35 Patient Secure Msg Doctor Unassigned, [place] Doctor Unassigned, [place] [facility] 1..840.114 350.1.13.10 4.2.7.2.686 [id number] [facility] 2024-04-12 11:54:00 2024-04-12 14:39:00 Emergency T ARAM CLARK [facility] STR [id number] [facility] 2024-04-12 11:54:00 2024-04-12 14:39:00 Emergency Aram Clark [facility] ([place]) 1.2840.114 350.1.13.10 4.2.7.2.686 [id number] [facility] 2024-04-12 09:23:00 2024-04-12 10:42:00 Emergency X MAGGIE HAMILTON, MAGGIE [facility] ERT [id number] [facility] 2024-04-12 09:23:00 2024-04-12 10:42:00 Emergency Onesimo, Maggie Herbert [facility] 1.2840.114 350.1.13.10 4.2.7.2.686 [id number] [facility] 2024-03-10 09:43:00 2024-03-13 10:40:00 Inpatient X TAJ BARKER MICHAEL [facility] VIVIENNE [id number] [facility] 2024-03-10 09:43:00 2024-03-13 10:40:00 Hospital Encounter Fidel, Alfredo Manuel, Jose Mao, Taj Milner [facility] ([place]) 1.20.114 350.1.13.10 4.2.7.2.686 [id number] [facility] 2024-03-06 00:00:00 2024-03-06 08:40:48 Transition of Care Marlys Odell Antoinette [facility] 1.2840.114 350.1.13.10 4.2.7.2.686 [id number] [facility] 2024-03-04 06:46:00 2024-03-05 16:30:00 Outpatient X JOSE NAIK MYRNA [facility] [id number] [facility] 2024-03-04 06:46:00 2024-03-05 16:30:00 Emergency Jesus Muñoz Myrna [facility] ([place]) 1.2.840.114 350.1.13.10 4.2.7.2.686 [id number] [facility] 2024-03-03 00:00:00 2024-03-04 15:45:46 Patient Secure Jas Piedra [facility] 1.2.840.114 350.1.13.10 4.2.7.2.686 [id number] [facility] 2024-03-03 00:00:00 2024-03-03 12:14:14 Telephone Giselle Vance [facility] ([place] 1.2.840.114 350.1.13.10 4.2.7.2.686 [id number] [facility] 2024-02-28 00:00:00 2024-02-28 09:08:41 Transition of Care Tc Renteria Michele A [facility] [place] 1.2.840.114 350.1.13.10 4.2.7.2.686 [id number] [facility] 2024-02-22 09:35:00 2024-02-27 16:59:00 Inpatient X HANY BO [facility] VIVIENNE [id number] [facility] 2024-02-22 09:35:00 2024-02-27 16:59:00 Hospital Encounter Colin Jones Megan A [facility] ([place] 1.2.840.114 350.1.13.10 4.2.7.2.686 [id number] [facility] 2024-02-27 09:40:00 2024-02-27 10:51:00 Surgery Jas Mensah [facility] ICAL [facility]ENCES BLDG 1.2.840.114 350.1.13.10 4.2.7.2.686 [id number] [facility] 2024-02-27 09:22:00 2024-02-27 10:26:00 Anesthesia Event Peter Reece [facility] 1.2.840.114 350.1.13.10 4.2.7.2.686 [id number] [facility] 2024-02-24 00:00:00 2024-02-24 09:18:09 Telephone Naty Mensah [facility] 1.2.840.114 350.1.13.10 4.2.7.2.686 [id number] [facility] 2023-12-23 15:39:53 2023-12-23 15:39:53 Outpatient [facility] [id number] Willis F Jeffery 2023-12-08 14:51:46 2023-12-08 14:51:46 Outpatient [facility] [id number] Willis F Jeffery 2023-09-12 00:00:00 2023-09-12 00:00:00 Outpatient ROLDAN QUIROZ [facility] [id number] [facility] 2023-08-26 00:00:00 2023-08-26 00:00:00 Transition of Care Marlys Odell [place] 1.2.840.114 350.1.13.10 4.2.7.2.686 [id number] [facility] 2023-08-23 08:31:00 2023-08-24 13:25:00 Outpatient ROLDAN PARKER [facility] [place] [id number] [facility] 2023-08-04 14:56:23 2023-08-04 14:56:23 Outpatient [facility] [id number] Willis Gil 2023-06-27 14:47:45 2023-06-27 14:47:45 Outpatient [facility] [id number] Willis Gil 2023-05-19 09:04:00 2023-05-19 12:20:00 Emergency X SALEEM SELLERS [facility] ERT [id number] [facility] 2023-05-19 09:04:00 2023-05-19 12:20:00 Emergency Anna Marie Sellerszohra [facility] 1.840.114 350.1.13.10 4.2.7.2.686 [id number] [facility] 2023-04-05 00:00:00 2023-04-05 00:00:00 Patient Secure Msg Prasanna Vargas [facility] PROFESSIO NAL BUILDING 1.84.114 350.1.13.10 4.2.7.2.686 [id number] [facility] 2023-02-14 12:59:23 2023-02-14 12:59:23 Outpatient [facility] [id number] Willis Gil 2023-02-06 18:19:02 2023-02-06 18:19:02 Outpatient [facility] [id number] Willis Gil 2023-01-30 00:00:00 2023-01-30 00:00:00 Outpatient [facility] [id number] [address] [place] [facility] 2023-01-16 00:00:00 2023-01-16 00:00:00 Transition of Care Marlys Odell 1.84.114 350.1.13.10 4.2.7.2.686 [id number] [facility] 2023-01-11 21:06:00 2023-01-15 16:00:00 Inpatient X KUN STEELE [facility] DAVID [id number] [facility] 2023-01-11 21:06:00 2023-01-15 16:00:00 Hospital Encounter Artur, Miguel Ángel Vergara, Mirella Steele, Kun [facility] 1.2.840.114 350.1.13.10 4.2.7.2.686 [id number] [facility] 2023-01-12 00:00:00 2023-01-12 00:00:00 Travel 1.2.840.1 [id number] 3.104.2.7 .3.895765 .8 1.2.840.114 350.1.13.10 4.2.7.3.698 [id number] [facility] 2023-01-11 00:00:00 2023-01-11 00:00:00 Travel 1.2.840.1 [id number] 3.104.2.7 .3.312609 .8 1.2.840.114 350.1.13.10 4.2.7.3.698 [id number] [facility] 2022-12-28 00:00:00 2022-12-28 00:00:00 Outpatient [facility] [id number] [place] [facility] 2022-12-14 18:37:13 2022-12-14 18:37:13 Outpatient STEFANY [facility] [id number] Willis Gil 2022-12-13 00:00:00 2022-12-13 00:00:00 Outpatient [facility] [id number] [place] [facility] 2022-12-12 09:30:00 2022-12-12 09:30:00 Outpatient PRASANNA LOOMIS [facility] [id number] [facility] 2022-11-21 13:08:00 2022-11-21 16:45:00 Emergency X MANJU NEWELL [facility] ERT [id number] [facility] 2022-11-21 13:08:00 2022-11-21 16:45:00 Emergency Singer Oc NewellManju 1.2.840.1 20677.1.1 3.104.2.7 .3.767629 .8 [id number] [facility] 2022-11-21 00:00:00 2022-11-21 00:00:00 Travel 1.2.840.1 [id number] 3.104.2.7 .3.788044 .8 1.2.840.114 350.1.13.10 4.2.7.3.698 [id number] [facility] 2022-11-18 10:08:00 2022-11-18 10:08:00 Outpatient [facility] [id number] Willis Gil 2022-11-15 09:40:00 2022-11-15 09:40:00 Outpatient JEREMY LABOY CHRISTINE [facility] [id number] [facility] 2022-11-15 00:00:00 2022-11-15 00:00:00 Orders Only Palak Marrufo 1.2.840.1 02854.1.1 3.104.2.7 .3.157091 .8 [id number] [facility] 2022-11-09 15:26:18 2022-11-09 15:26:18 Outpatient [facility] [id number] Willis Rivera Jeffery 2022-11-06 13:00:00 2022-11-06 13:00:00 Outpatient CA ARAUZ [facility] [id number] [facility] 2022-10-29 00:00:00 2022-10-29 00:00:00 Patient Secure Jeremy Mason 1.2.840.1 61361.1.1 3.104.2.7 .3.293771 .8 [id number] [facility] 2022-10-29 00:00:00 2022-10-29 00:00:00 Patient Secure Msg Prasanna Vargas 1.2.840.1 54463.1.1 3.104.2.7 .3.740388 .8 [id number] [facility] 2022-10-03 00:00:00 2022-10-03 00:00:00 Letter (Out) Roldan Lim [facility] TALYA?KARLOSKassandra [facility] 1.2.840.114 350.1.13.10 4.2.7.2.686 [id number] [facility] 2022-10-02 10:00:00 2022-10-02 10:00:00 Outpatient R DESIREE FINNEY [facility] [id number] [facility] 2022-10-01 09:40:00 2022-10-01 09:40:00 Outpatient REJI COOPER [facility] [id number] [facility] 2022-09-25 00:00:00 2022-09-25 00:00:00 Telephone [facility] 1..840.114 350.1.13.10 4.2.7.2.686 [id number] [facility] 2022-09-21 09:30:00 2022-09-21 09:30:00 Outpatient KASSANDRA MCKINLEY [facility] [id number] [facility] 2022-09-21 00:00:00 2022-09-21 00:00:00 [facility] (Out[facility] 1..840.114 350.1.13.10 4.2.7.2.686 [id number] [facility] 2022-09-21 00:00:00 2022-09-21 00:00:00 [facility] 1.840.114 350.1.13.10 4.2.7.2.686 [id number] [facility] 2022-09-21 00:00:00 2022-09-21 00:00:00 [facility] 1.2840.114 350.1.13.10 4.2.7.2.686 [id number] [facility] 2022-09-14 09:30:00 2022-09-14 09:30:00 [facility] [id number] [facility] 2022-09-12 00:00:00 2022-09-12 00:00:00 Telephone Cristian [facility] 1.840.114 350.1.13.10 4.2.7.2.686 [id number] [facility] 2022-09-07 11:30:00 2022-09-07 11:30:00 [facility] [id number] [facility] 2022-09-05 08:44:00 2022-09-05 13:15:00 Emergency X KENNEDY WHITLEY [facility] ERT [id number] [facility] 2022-09-05 08:44:00 2022-09-05 13:15:00 Emergency Kennedy Whitley [facility] 1.840.114 350.1.13.10 4.2.7.2.686 [id number] [facility] 2022-09-04 00:00:00 2022-09-04 00:00:00 Telephone Cristian [facility] 1.2840.114 350.1.13.10 4.2.7.2.686 [id number] [facility] 2022-09-04 00:00:00 2022-09-04 00:00:00 Patient Secure Msg Rad Serra [facility] 1..840.114 350.1.13.10 4.2.7.2.686 [id number] [facility] 2022-08-29 09:00:00 2022-08-29 09:00:00 Outpatient R DESIREE FINNEY [facility] [id number] [facility] 2022-08-14 00:00:00 2022-08-14 00:00:00 Patient Secure Msg Doctor Unassigned, [place] [facility]O [facility] 1..840.114 350.1.13.10 4.2.7.2.686 [id number] [facility] 2022-07-31 17:56:00 2022-07-31 20:30:00 Emergency X [facility] ERT [id number] [facility] 2022-07-31 17:56:00 2022-07-31 20:30:00 Emergency AuroraManju matos [facility] 1..840.114 350.1.13.10 4.2.7.2.686 [id number] [facility] 2022-07-15 09:46:45 2022-07-15 23:59:00 Outpatient R BEBA KAUR [facility] [id number] [facility] 2022-07-15 09:46:45 2022-07-15 23:59:00 Hospital Encounter Beba Kaur [facility]?KARLOSKassandra [facility] 1..840.114 350.1.13.10 4.2.7.2.686 [id number] [facility] 2022-07-15 09:46:45 2022-07-15 23:59:00 Hospital Encounter Beba Kaur [facility]?LINO [facility] 1.284.114 350.1.13.10 4.2.7.2.686 [id number] [facility] 2022-07-15 09:20:00 2022-07-15 10:29:17 Urgent Care Beba Kaur Unknown, Attending [facility] [id number] 350.1.13.10 4.2.7.2.686 [id number] [facility] 2022-07-15 00:00:00 2022-07-15 00:00:00 Orders Only Doctor Unassigned, [place] [facility] 1.2840.114 350.1.13.10 4.2.7.2.686 [id number] [facility] 2022-06-23 09:20:00 2022-06-23 10:27:39 Outpatient R PAUL SAMAYOA [facility] [id number] [facility] 2022-06-23 09:20:00 2022-06-23 10:27:39 Urgent Care Paul Samayoa Unknown, Attending [facility] 1.84.114 350.1.13.10 4.2.7.2.686 [id number] [facility] 2022-06-23 00:00:00 2022-06-23 00:00:00 Orders Only Doctor Unassigned, [place] [facility] [id number] 350.1.13.10 4.2.7.2.686 [id number] [facility] 2022-06-15 09:40:00 2022-06-15 09:40:00 Outpatient R JEREMY GREENE [facility] [id number] [facility] 2022-05-29 08:00:00 2022-05-29 08:00:00 Outpatient R KASSANDRA PUGH [facility] [id number] [facility] 2022-05-15 09:20:00 2022-05-15 09:20:00 Outpatient R BENNETT MILLER [facility] [id number] [facility] 2022-05-11 09:30:00 2022-05-11 09:30:00 Outpatient R PUGHKASSANDRA [facility] [id number] [facility] 2022-05-05 12:26:00 2022-05-05 16:11:00 Emergency X DAWNA NORTONANNE [facility] ERT [id number] [facility] 2022-05-05 12:26:00 2022-05-05 16:11:00 Emergency Norton Karon [facility] [id number] 350.1.13.10 4.2.7.2.686 [id number] [facility] 2022-05-01 00:00:00 2022-05-01 00:00:00 Outpatient R PRASANNA VARGAS VIEN [facility] [id number] [facility] 2022-04-26 08:30:00 2022-04-26 09:59:00 Emergency X OC BRIDGES [facility] ERT [id number] [facility] 2022-04-26 08:30:00 2022-04-26 09:59:00 Emergency Oc Bridges [facility] 1.2.840.114 350.1.13.10 4.2.7.2.686 [id number] [facility] 2022-04-25 18:23:00 2022-04-25 21:55:00 Emergency X KENNEDY WHITLEY [facility] ERT [id number] [facility] 2022-04-25 18:23:00 2022-04-25 21:55:00 Emergency Kennedy Whitley [facility] 1.2.840.114 350.1.13.10 4.2.7.2.686 [id number] [facility] 2022-04-19 10:00:00 2022-04-19 10:00:00 Outpatient JEREMY LABOY [facility] [id number] [facility] 2022-04-12 00:00:00 2022-04-12 00:00:00 Telephone Kassandra Pugh [facility] 1.2.840.114 350.1.13.10 4.2.7.2.686 [id number] [facility] 2022-04-11 00:00:00 2022-04-11 00:00:00 Telephone Patti, Darrion Joey [facility] 1.2.840.114 350.1.13.10 4.2.7.2.686 [id number] [facility] 2022-04-10 00:00:00 2022-04-10 00:00:00 Telephone Lonny Pughssica [facility] 1.2.840.114 350.1.13.10 4.2.7.2.686 [id number] [facility] 2022-04-09 09:30:00 2022-04-09 09:30:00 Office Visit Lonny Pughssica [facility] 1.2.840.114 350.1.13.10 4.2.7.2.686 [id number] [facility] 2022-04-09 09:30:00 2022-04-09 09:21:44 Outpatient R LONNY PUGHSSICA [facility] [id number] [facility] 2022-04-07 13:41:00 2022-04-07 17:49:00 Emergency X DREOLAMIDE VENCES [facility] ERT [id number] [facility] 2022-04-07 13:41:00 2022-04-07 17:49:00 Emergency Olamide Garvin [facility] 1.114 350.1.13.10 4.2.7.2.686 [id number] [facility] 2022-04-07 00:00:00 2022-04-07 00:00:00 Patient Secure Msg Doctor Unassigned, [place] [facility] 1.114 350.1.13.10 4.2.7.2.686 [id number] [facility] 2022-04-04 00:00:00 2022-04-04 00:00:00 Telephone Kassandra Pugh [facility] 1.84114 350.1.13.10 4.2.7.2.686 [id number] [facility] 2022-04-02 10:30:00 2022-04-02 10:30:00 Outpatient R LONNY PUGHSSICA [facility] [id number] [facility] 2022-03-28 00:00:00 2022-03-28 00:00:00 Patient Secure Msg Doctor Unassigned, [place] [facility]?BANNERKassandra [facility] 1.84.114 350.1.13.10 4.2.7.2.686 [id number] [facility] 2022-03-24 07:35:00 2022-03-24 13:11:00 Emergency X KELLIE DUNCAN [facility] ERT [id number] [facility] 2022-03-24 07:35:00 2022-03-24 13:11:00 Emergency Kellie Duncan [facility] 1.114 350.1.13.10 4.2.7.2.686 [id number] [facility] 2022-03-23 10:30:00 2022-03-23 10:30:00 Outpatient KASSANDRA MCKINLEY [facility] [id number] [facility] 2022-03-23 00:00:00 2022-03-23 00:00:00 Telephone Darrion Waytt [facility] TALYA?LINO [facility] 1.2.840.114 350.1.13.10 4.2.7.2.686 [id number] [facility] 2022-03-22 00:00:00 2022-03-22 00:00:00 Telephone Patti [facility] TALYA?[facility] 1..840.114 350.1.13.10 4.2.7.2.686 [id number] [facility] 2022-03-22 00:00:00 2022-03-22 00:00:00 Refill Patti [facility] TALYA?[facility] 1..840.114 350.1.13.10 4.2.7.2.686 [id number] [facility] 2022-03-21 00:00:00 2022-03-21 00:00:00 Telephone Darrion Wyatt [facility] TALYA?[facility] 1..840.114 350.1.13.10 4.2.7.2.686 [id number] [facility] 2022-03-15 14:00:00 2022-03-15 14:36:19 Outpatient REJI COOPER [facility] [id number] [facility] 2022-03-15 14:00:00 2022-03-15 14:36:19 Office Visit Reji Díaz [facility] NAL BUILDING 1.2840.114 350.1.13.10 4.2.7.2.686 [id number] [facility] 2022-03-15 08:40:00 2022-03-15 10:47:00 Emergency X LYDIA GOULD [facility] ERT [id number] [facility] 2022-03-15 08:40:00 2022-03-15 10:47:00 Emergency Lydia Gould [facility] 1..840.114 350.1.13.10 4.2.7.2.686 [id number] [facility] 2022-03-14 10:30:00 2022-03-14 10:30:00 Outpatient PRASANNA LOOMIS [facility] [id number] [facility] 2022-03-11 09:22:00 2022-03-11 12:15:00 Emergency X ANGELICA VIVEROS [facility] ERT [id number] [facility] 2022-03-11 09:22:00 2022-03-11 12:15:00 Emergency Angelica Viveros [facility] 1..840.114 350.1.13.10 4.2.7.2.686 [id number] [facility] 2022-03-06 08:30:00 2022-03-06 08:30:00 Outpatient KASSANDRA MCKINLEY [facility] [id number] [facility] 2022-03-02 00:00:00 2022-03-02 00:00:00 Telephone Darrion Wyatt [facility]O [facility] 1..840.114 350.1.13.10 4.2.7.2.686 [id number] [facility] 2022-02-28 00:00:00 2022-02-28 00:00:00 Patient Secure Msg Doctor Unassigned, [place] [facility] 1.114 350.1.13.10 4.2.7.2.686 [id number] [facility] 2022-02-27 09:30:00 2022-02-27 09:49:42 Outpatient R KASSANDRA PUGH [facility] [id number] [facility] 2022-02-27 09:30:00 2022-02-27 09:49:42 [facility] 1.114 350.1.13.10 4.2.7.2.686 [id number] [facility] 2022-02-27 08:00:00 2022-02-27 09:12:17 Office Visit Víctorkassandra Ca [facility] 1.114 350.1.13.10 4.2.7.2.686 [id number] [facility] 2022-02-26 11:30:00 2022-02-26 11:30:00 Outpatient R KASSANDRA PUGH [facility] [id number] [facility] 2022-02-21 01:20:00 2022-02-21 03:44:00 Emergency X MAGGIE HAMILTON [facility] ERT [id number] [facility] 2022-02-21 01:20:00 2022-02-21 03:44:00 Emergency Maggie Hamilton [facility] 1..114 350.1.13.10 4.2.7.2.686 [id number] [facility] 2022-02-19 00:00:00 2022-02-19 00:00:00 Patient Secure Kendal Medrano [facility] 1.84.114 350.1.13.10 4.2.7.2.686 [id number] [facility] 2022-02-19 00:00:00 2022-02-19 00:00:00 Patient Secure Msg Kendal Zamudio [facility] 1.2.840.114 350.1.13.10 4.2.7.2.686 [id number] [facility] 2022-02-19 00:00:00 2022-02-19 00:00:00 Patient Secure Msg Santiago Bradford [facility] 1.2.840.114 350.1.13.10 4.2.7.2.686 [id number] [facility] 2022-02-19 00:00:00 2022-02-19 00:00:00 Patient Secure g Martin Ross Farzana [facility] WIRE DRAWER [facility] & CHILD [facility] 1.840.114 350.1.13.10 4.2.7.2.686 [id number] [facility] 2022 11:58:00 2022 15:13:00 Emergency MAGGIE MONTANEZ [facility] ERT [id number] [facility] 2022 11:58:00 2022 15:13:00 Emergency Maggie Hamilton [facility] 1.840.114 350.1.13.10 4.2.7.2.686 [id number] [facility] 2022-02-09 09:00:00 2022-02-09 09:00:00 Outpatient CRICKET FRYE [facility] [id number] [facility] 2022-02-06 10:00:00 2022-02-06 10:00:00 Outpatient CA ARAUZ [facility] [id number] [facility] 2022-02-05 09:45:00 2022-02-05 10:05:00 Nurse Visit Nurse, Filippo [facility] Mitchell Willie [facility] 1..840.114 350.1.13.10 4.2.7.2.686 [id number] [facility] 2022-02-05 09:20:00 2022-02-05 09:20:00 Outpatient FLACO KEE [facility] [id number] [facility] 2022-01-26 00:00:00 2022-01-26 00:00:00 Case Management Prasanna Vargas [facility] PROFESSIO NAL BUILDING 1..840.114 350.1.13.10 4.2.7.2.686 [id number] [facility] 2022-01-22 11:00:00 2022-01-22 11:00:00 Outpatient CA ARAUZ [facility] [id number] [facility] 2022-01-19 00:00:00 2022-01-19 00:00:00 Patient Secure Msg Doctor Unassigned, [place] [facility] 1..840.114 350.1.13.10 4.2.7.2.686 [id number] [facility] 2022-01-18 05:17:00 2022-01-18 10:25:00 Emergency X ROSENDO LEVY [facility] ERT [id number] [facility] 2022-01-18 05:17:00 2022-01-18 10:25:00 Emergency Juan Kennedy [facility] 1..840.114 350.1.13.10 4.2.7.2.686 [id number] [facility] 2022-01-15 08:34:00 2022-01-15 10:49:00 Emergency X MAURA SAMAYOA [facility] ERT [id number] [facility] 2022-01-15 08:34:2022-01-15 10:49:00 Emergency Larry Perez Robert Lee [facility] 1..840.114 350.1.13.10 4.2.7.2.686 [id number] [facility] 2022-01-08 18:04:00 2022-01-08 20:09:00 Emergency X HUMBERTO OCHOA [facility] ERT [id number] [facility] 2022-01-08 18:04:00 2022-01-08 20:09:00 Emergency Humberto Ochoa [facility] 1..840.114 350.1.13.10 4.2.7.2.686 [id number] [facility] 2021-12-12 13:30:00 2021-12-12 13:40:21 Outpatient Farzana CARNES [facility] [id number] [facility] 2021-12-12 13:30:00 2021-12-12 13:40:21 Office Visit Prasanna Vargas [facility] 1..840.114 350.1.13.10 4.2.7.2.686 [id number] [facility] 2021-12-12 13:30:00 2021-12-12 13:40:21 Outpatient Farzana CARNES [facility] [id number] [facility] 2021-12-12 13:30:00 2021-12-12 13:40:21 Outpatient Farzana CARNES [facility] [id number] [facility] 2021-12-11 16:15:00 2021-12-11 16:15:00 Outpatient SANTIAGO KING [facility] [id number] [facility] 2021-12-05 14:15:00 2021-12-05 14:15:00 Outpatient ROMULO BROWNING [facility] [id number] [facility] 2021-11-28 08:49:00 2021-11-28 11:02:00 Emergency X KARON NORTON [facility] ERT [id number] [facility] 2021-11-28 08:49:00 2021-11-28 11:02:00 Emergency Karon Norton [facility] 1.0.114 350.1.13.10 4.2.7.2.686 [id number] [facility] 2021-11-28 00:00:00 2021-11-28 00:00:00 Patient Secure Msg Cricket Taylor [facility] WIRE DRAWER [facility] CHILD [facility] 1..114 350.1.13.10 4.2.7.2.686 [id number] [facility] 2021-11-24 18:14:00 2021-11-24 21:04:00 Emergency X Kaycee MÉNDEZ [facility] ERT [id number] [facility] 2021-11-24 18:14:00 2021-11-24 21:04:00 Emergency Dev, Kaycee Sharlene [facility] 1..114 350.1.13.10 4.2.7.2.686 [id number] [facility] 2021-11-24 00:00:00 2021-11-24 00:00:00 Telephone Crciket Taylor [facility] WIRE DRAWER [facility] & CHILD [facility] 1..114 350.1.13.10 4.2.7.2.686 [id number] [facility] 2021-11-20 00:00:00 2021-11-20 00:00:00 Patient Secure Msg Kendal Zamudio [facility]?KARLOSKassandra [facility] 1..114 350.1.13.10 4.2.7.2.686 [id number] [facility] 2021-11-19 00:00:00 2021-11-19 00:00:00 Letter (Out) Noam Lelsie [facility] 1.2.840.114 350.1.13.10 4.2.7.2.686 [id number] [facility] 2021-11-18 10:41:40 2021-11-18 23:59:00 [facility] [id number] [facility] 2021-11-18 10:41:40 2021-11-18 23:59:00 Hospital Encounter Oliver, [facility]?LINO [facility] 1..840.114 350.1.13.10 4.2.7.2.686 [id number] [facility] 2021-11-18 10:20:00 2021-11-18 10:53:20 Urgent Care Oliver [facility] MEDICAL OFFICE BUILDING 1..840.114 350.1.13.10 4.2.7.2.686 [id number] [facility] 2021-11-09 10:30:00 2021-11-09 10:30:00 Outpatient R DESIREE MIXON [facility] [id number] [facility] 2021-10-25 13:20:00 2021-10-25 13:20:00 [facility] Care [facility] 1..840.114 350.1.13.10 4.2.7.2.686 [id number] [facility] 2021-10-25 13:20:00 2021-10-25 12:47:59 Outpatient R WILLIE MEDRANO [facility] [id number] [facility] 2021-10-25 00:00:00 2021-10-25 00:00:00 Patient Secure Msg Ca Martinez [facility] MED[facility] OFF[facility]ILD[facility] 1.2.840.114 350.1.13.10 4.2.7.2.686 [id number] [facility] 2021-10-25 00:00:00 2021-10-25 00:00:00 Telephone Ca Martinez [facility] TALYA?BANNERKassandra [facility] 1.2.840.114 350.1.13.10 4.2.7.2.686 [id number] [facility] 2021-10-25 00:00:00 2021-10-25 00:00:00 Telephone Provider, [facility] T[facility] MED[facility] OFF[facility] BUILD[facility] 1.2.840.114 350.1.13.10 4.2.7.2.686 [id number] [facility] 2021-10-25 00:00:00 2021-10-25 00:00:00 Telephone Nurse, [facility]ilipp[facility] MED[facility] OFF[facility] BUILD[facility] 1.2.840.114 350.1.13.10 4.2.7.2.686 [id number] [facility] 2021-10-24 10:15:00 2021-10-24 10:15:00 Outpatient ROMULO BROWNING [facility] [id number] [facility] 2021-10-24 10:15:00 2021-10-24 10:15:00 Outpatient ROMULO BROWNING [facility] [id number] [facility] 2021-10-11 09:30:00 2021-10-11 09:30:00 Outpatient ROMULO BROWNING [facility] [id number] [facility] 2021-10-10 13:30:00 2021-10-10 13:30:00 Outpatient PRASANNA LOOMIS [facility] [id number] [facility] 2021-10-10 13:30:00 2021-10-10 13:30:00 Outpatient R PRASANNA VARGAS [facility] [id number] [facility] 2021-10-10 13:30:00 2021-10-10 13:30:00 Outpatient R PRASANNA VARGAS [facility] [id number] [facility] 2021-10-10 13:30:00 2021-10-10 13:30:00 Outpatient R PRASANNA VARGAS [facility] [id number] [facility] 2021-10-10 13:30:00 2021-10-10 13:30:00 Outpatient R PRASANNA VARGAS [facility] [id number] [facility] 2021-10-10 13:30:00 2021-10-10 13:30:00 Outpatient R PRASANNA VARGAS [facility] [id number] [facility] 2021-10-10 13:30:00 2021-10-10 13:30:00 Outpatient R PRASANNA VARGAS [facility] [id number] [facility] 2021-10-05 00:00:00 2021-10-05 00:00:00 Patient Secure Msg [facility] MED[facility] OFF[facility] BUILD[facility] 1.84.114 350.1.13.10 4.2.7.2.686 [id number] [facility] 2021-10-05 00:00:00 2021-10-05 00:00:00 Patient Secure Msg [facility] MED[facility] OFF[facility]ILD[facility] 1.84.114 350.1.13.10 4.2.7.2.686 [id number] [facility] 2021-10-04 00:00:00 2021-10-04 00:00:00 Pre Visit Outreach Melia Rodriguez 1.84.114 350.1.13.10 4.2.7.2.686 [id number] [facility] 2021-09-28 13:30:00 2021-09-28 13:45:00 Office Visit Richelle Mixonherine Kassandra [facility] 1.2.840.114 350.1.13.10 4.2.7.2.686 [id number] [facility] 2021-09-28 13:30:00 2021-09-28 13:30:00 Outpatient DESIREE STONE [facility] [id number] [facility] 2021-09-28 13:30:00 2021-09-28 13:30:00 Outpatient DESIREE STONE [facility] [id number] [facility] 2021-09-28 00:00:00 2021-09-28 00:00:00 Patient Secure Msg Richelle Mixonherine Kassandra [facility] 1.2.840.114 350.1.13.10 4.2.7.2.686 [id number] [facility] 2021-09-27 14:00:00 2021-09-27 14:00:00 Outpatient TETO BRANTLEY [facility] [id number] [facility] 2021-09-27 09:30:00 2021-09-27 09:30:00 Outpatient DANIA RICARDO [facility] [id number] [facility] 2021-09-27 09:30:00 2021-09-27 09:30:00 Outpatient DANIA RICARDO [facility] [id number] [facility] 2021-09-27 09:30:00 2021-09-27 09:30:00 Outpatient DANIA RICARDO [facility] [id number] [facility] 2021-09-26 10:45:00 2021-09-26 10:45:00 Outpatient CRICKET FRYE [facility] [id number] [facility] 2021-09-26 10:45:00 2021-09-26 10:45:00 Outpatient R CRICKET TAYLOR [facility] [id number] [facility] 2021-09-26 00:00:00 2021-09-26 00:00:00 Patient Secure Ca Caraballo [facility] 1.2.840.114 350.1.13.10 4.2.7.2.686 [id number] [facility] 2021-09-26 00:00:00 2021-09-26 00:00:00 Patient Secure Ca Caraballo [facility] MED[facility] OFFICE BUILDING 1.2.840.114 350.1.13.10 4.2.7.2.686 [id number] [facility] 2021-09-25 10:20:00 2021-09-25 11:10:42 Urgent Care OliverFlaco patton Amanda [facility] 1.2.840.114 350.1.13.10 4.2.7.2.686 [id number] [facility] 2021-09-25 10:20:00 2021-09-25 11:10:42 Outpatient R FLACO BOYD [facility] [id number] [facility] 2021-09-25 10:20:00 2021-09-25 10:20:00 Outpatient R FLACO BOYD [facility] [id number] [facility] 2021-09-25 10:00:00 2021-09-25 10:00:00 Outpatient R PRASANNA VARGAS [facility] [id number] [facility] 2021-09-25 00:00:00 2021-09-25 00:00:00 Telephone Flaco Boyd [facility] MED[facility] OFFICE BUILDING 1.2840.114 350.1.13.10 4.2.7.2.686 [id number] [facility] 2021-09-25 00:00:00 2021-09-25 00:00:00 Patient Secure Msg Prasanna Vargas [facility] NAL BUILDING 1.2840.114 350.1.13.10 4.2.7.2.686 [id number] [facility] 2021-09-25 00:00:00 2021-09-25 00:00:00 Telephone Cricket Taylor [facility] WIRE [facility] 1.20.114 350.1.13.10 4.2.7.2.686 [id number] [facility] 2021-09-25 00:00:00 2021-09-25 00:00:00 Telephone Desiree Mixon [facility] 1.2840.114 350.1.13.10 4.2.7.2.686 [id number] [facility] 2021-09-15 00:00:00 2021-09-15 00:00:00 Patient Secure Msg Kendal [facility] 1.0.114 350.1.13.10 4.2.7.2.686 [id number] [facility] 2021-09-15 00:00:00 2021-09-15 00:00:00 Patient Secure Msg Kendal Zamudio [facility] MED[facility] OFF[facility] BUILD[facility] 1.20.114 350.1.13.10 4.2.7.2.686 [id number] [facility] 2021-09-15 00:00:00 2021-09-15 00:00:00 Patient Secure Msg Kendal Zamudio [facility] MED[facility] OFF[facility] BUILD[facility] 1..114 350.1.13.10 4.2.7.2.686 [id number] [facility] 2021-09-14 00:00:00 2021-09-14 00:00:00 Patient Secure Msg Ca Martinez [facility] 1..114 350.1.13.10 4.2.7.2.686 [id number] [facility] 2021-09-14 00:00:00 2021-09-14 00:00:00 Patient Secure Msg Doctor Unassigned, [place] [facility] 1.0.114 350.1.13.10 4.2.7.2.686 [id number] [facility] 2021-09-12 10:30:00 2021-09-12 10:30:00 Outpatient DESIREE STONE [facility] [id number] [facility] 2021-09-12 10:30:00 2021-09-12 10:30:00 Outpatient DESIREE STONE [facility] [id number] [facility] 2021-09-12 00:00:00 2021-09-12 00:00:00 Patient Secure [facility]sg [facility] 1.114 350.1.13.10 4.2.7.2.686 [id number] [facility] 2021-09-12 00:00:00 2021-09-12 00:00:00 Orders Only Doctor Unassigned, [place] [facility] 1..114 350.1.13.10 4.2.7.2.686 [id number] [facility] 2021-09-12 00:00:00 2021-09-12 00:00:00 Patient Secure Msg Ca Martinez [facility] 1.2840.114 350.1.13.10 4.2.7.2.686 [id number] [facility] 2021-09-05 00:00:00 2021-09-05 00:00:00 Patient Secure Msg Ca Martinez [facility] 1.2840.114 350.1.13.10 4.2.7.2.686 [id number] [facility] 2021-09-05 00:00:00 2021-09-05 00:00:00 Patient Secure Msg Doctor Unassigned, [place] [facility] 1.2840.114 350.1.13.10 4.2.7.2.686 [id number] [facility] 2021-09-05 00:00:00 2021-09-05 00:00:00 Patient Secure Msg Doctor Unassigned, [place] [facility] 1.2840.114 350.1.13.10 4.2.7.2.686 [id number] [facility] 2021-09-04 00:00:00 2021-09-04 00:00:00 Patient Secure Msg Ca Martinez [facility] 1.2840.114 350.1.13.10 4.2.7.2.686 [id number] [facility] 2021-08-28 00:00:00 2021-08-28 00:00:00 Patient Secure Msg Harsh Charles [facility] 1.2840.114 350.1.13.10 4.2.7.2.686 [id number] [facility] 2021-08-25 00:00:00 2021-08-25 00:00:00 Telephone Dania Penning[facility] 1.2.840.114 350.1.13.10 4.2.7.2.686 [id number] [facility] 2021-08-25 00:00:00 2021-08-25 00:00:00 Patient Secure Msg Ca Martinez [facility] 1.2.840.114 350.1.13.10 4.2.7.2.686 [id number] [facility] 2021-08-24 00:00:00 2021-08-24 00:00:00 Telephone Ca Martinez [facility] 1.2840.114 350.1.13.10 4.2.7.2.686 [id number] [facility] 2021-08-24 00:00:00 2021-08-24 00:00:00 Patient Secure Msg Ca Martinez [facility] [facility] 1.2.840.114 350.1.13.10 4.2.7.2.686 [id number] [facility] 2021-08-23 00:00:00 2021-08-23 00:00:00 Patient Secure Msg Ca Martinez [facility] 1.2.840.114 350.1.13.10 4.2.7.2.686 [id number] 044 [id number] [facility] 2021-08-23 00:00:00 2021-08-23 00:00:00 Telephone Ca Martinez [facility] 1.2.840.114 350.1.13.10 4.2.7.2.686 [id number] 044 [id number] [facility] 2021-08-22 00:00:00 2021-08-22 00:00:00 Telephone Ca Martinez [facility] 1.2840.114 350.1.13.10 4.2.7.2.686 [id number] 044 [id number] [facility] 2021-08-22 00:00:00 2021-08-22 00:00:00 Patient Secure Msg Hallie Wilkinson [facility]?BANNERKassandra [facility] 1.0.114 350.1.13.10 4.2.7.2.686 [id number] 044 [id number] [facility] 2021-08-18 00:00:00 2021-08-18 00:00:00 Telephone Ca Martinez [facility]?BANNERKassandra [facility] 1.840.114 350.1.13.10 4.2.7.2.686 [id number] 044 [id number] [facility] 2021-08-17 09:00:00 2021-08-17 09:00:00 Outpatient DESIREE STONE [facility] [id number] [facility] 2021-08-17 09:00:00 2021-08-17 09:00:00 Outpatient DESIREE STONE [facility] [id number] [facility] 2021-08-17 00:00:00 2021-08-17 00:00:00 Patient Secure Msg Prasanna Vargas [facility] PROFESS[facility] NAL BUILDING 1.84.114 350.1.13.10 4.2.7.2.686 [id number] [facility] 2021-08-17 00:00:00 2021-08-17 00:00:00 Patient Secure Msg Ca Martinez [facility]?BANNERKassandra [facility] BU[facility] 1.2840.114 350.1.13.10 4.2.7.2.686 [id number] 044 [id number] [facility] 2021-08-17 00:00:00 2021-08-17 00:00:00 Patient Secure Msg Ca Martinez [facility] 1.84.114 350.1.13.10 4.2.7.2.686 [id number] 044 [id number] [facility] 2021-08-16 00:00:00 2021-08-16 00:00:00 Patient Secure Msg Ca Martinez [facility] LULU [place] MEDICAL OFFICE BUILDING 1.84.114 350.1.13.10 4.2.7.2.686 [id number] 044 [id number] [facility] 2021-08-16 00:00:00 2021-08-16 00:00:00 Patient Secure Msg Doctor Unassigned, [place] [facility] 1.84.114 350.1.13.10 4.2.7.2.686 [id number] 044 [id number] [facility] 2021-08-16 00:00:00 2021-08-16 00:00:00 Patient Secure Msg Ca Martinez [facility] L[facility] 1.84.114 350.1.13.10 4.2.7.2.686 [id number] [id number] [facility] 2021-08-16 00:00:00 2021-08-16 00:00:00 Patient Secure Msg Ca Martinez [facility] L[facility] [place]?[facility] MEDICAL OFFICE BUILDING 1.84.114 350.1.13.10 4.2.7.2.686 [id number] 044 [id number] [facility] 2021-08-15 15:30:00 2021-08-15 16:16:42 Office Visit Adán Kim [facility] MEDICAL OFFICE BUILDING 1.2840.114 350.1.13.10 4.2.7.2.686 [id number] [facility] 2021-08-15 15:30:00 2021-08-15 16:16:42 Outpatient ADÁN DIEGO [facility] [id number] [facility] 2021-08-15 15:30:00 2021-08-15 15:30:00 Outpatient ADÁN DIEGO [facility] [id number] [facility] 2021-08-15 15:30:00 2021-08-15 15:30:00 Outpatient Farzana KIM ADÁN [facility] [id number] [facility] 2021-08-15 15:30:00 2021-08-15 15:30:00 Outpatient ADÁN DIEGO [facility] [id number] [facility] 2021-08-15 09:27:00 2021-08-15 12:26:00 Emergency X MAURA SAMAYOA [facility] ERT [id number] [facility] 2021-08-15 09:27:00 2021-08-15 12:26:00 Emergency Maura Samayoa [facility] 1..840.114 350.1.13.10 4.2.7.2.686 [id number] [facility] 2021-08-15 09:27:00 2021-08-15 12:26:00 Emergency MAURA DALE [facility] ERT [id number] [facility] 2021-08-15 00:00:00 2021-08-15 00:00:00 Patient Secure Msg Doctor Unassigned, [place] [facility] 1..840.114 350.1.13.10 4.2.7.2.686 [id number] [facility] 2021-08-14 13:25:00 2021-08-14 23:59:00 Outpatient CA ARAUZ [facility] [id number] [facility] 2021-08-14 13:25:00 2021-08-14 23:59:00 Outpatient R CA MARTINEZ [facility] [id number] [facility] 2021-08-14 13:25:00 2021-08-14 13:25:00 Outpatient R CA MARTINEZ [facility] [id number] [facility] 2021-08-14 12:19:07 2021-08-14 13:24:00 Outpatient R CA MARTINEZ [facility] [id number] [facility] 2021-08-14 12:19:07 2021-08-14 13:24:00 Outpatient R VÍCTORCA Cannon [facility] [id number] [facility] 2021-08-14 12:30:00 2021-08-14 13:01:24 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, Filippo Reneekassandra [facility] TALYA?[facility] 1.2.840.114 350.1.13.10 4.2.7.2.686 [id number] [facility] 2021-08-14 12:30:00 2021-08-14 12:45:00 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, Filippo ReneeRichelle cannonFormerly [facility] TALYA?[facility] OFF[facility] BUILDING 1.2.840.114 350.1.13.10 4.2.7.2.686 [id number] [facility] 2021-08-14 11:30:00 2021-08-14 12:31:12 Office Visit Víctorkassandra [facility] TALYA?BANNERKassandra [facility] BUILDING 1.2.840.114 350.1.13.10 4.2.7.2.686 [id number] [id number] [facility] 2021-08-14 11:30:00 2021-08-14 12:31:12 Outpatient R VÍCTORCA Cannon [facility] [id number] [facility] 2021-08-14 00:00:00 2021-08-14 00:00:00 Patient Secure Msg Ca Martinez [facility] BUILDING 1.2.840.114 350.1.13.10 4.2.7.2.686 [id number] [facility] 2021-08-14 00:00:00 2021-08-14 00:00:00 Patient Secure Msg Ca Martinez [facility] BUILDING 1.2.840.114 350.1.13.10 4.2.7.2.686 [id number] [facility] 2021-08-09 14:45:00 2021-08-09 14:45:00 Outpatient ADÁN DIEGO [facility] [id number] [facility] 2021-08-09 00:00:00 2021-08-09 00:00:00 Telephone Ca Martinez [facility] OFF[facility] BUILDING 1.2.840.114 350.1.13.10 4.2.7.2.686 [id number] [id number] [facility] 2021-08-08 11:30:00 2021-08-08 23:59:00 Outpatient CA ARAUZ [facility] [id number] [facility] 2021-08-08 11:30:00 2021-08-08 23:59:00 Hospital Encounter Ca Martinez [facility] OFF[facility] BUILDING 1.2.840.114 350.1.13.10 4.2.7.2.686 [id number] [facility] 2021-08-08 11:15:00 2021-08-08 11:15:00 Outpatient CA ARAUZ [facility] [id number] [facility] 2021-08-08 11:00:00 2021-08-08 11:00:00 Outpatient CA ARAUZ [facility] [id number] [facility] 2021-08-08 00:00:00 2021-08-08 00:00:00 Patient Secure Msg Doctor Unassigned, [place] [facility] 1.114 350.1.13.10 4.2.7.2.686 [id number] [facility] 2021-08-07 09:30:00 2021-08-07 10:23:21 Office [facility] BUILDING 1.114 350.1.13.10 4.2.7.2.686 [id number] [facility] 2021-08-07 09:30:00 2021-08-07 10:23:21 Outpatient R CA MARTINEZ [facility] [id number] [facility] 2021-08-07 09:30:00 2021-08-07 09:30:00 Outpatient R CA MARTINEZ [facility] [id number] [facility] 2021-08-07 00:00:00 2021-08-07 00:00:00 Patient Secure Msg Ca Martinez [facility]?BANNERKassandra [facility] BUILDING 1.114 350.1.13.10 4.2.7.2.686 [id number] [facility] 2021-08-07 00:00:00 2021-08-07 00:00:00 Patient Secure Msg Ca Martinez [facility] OFF[facility] BUILDING 1.114 350.1.13.10 4.2.7.2.686 [id number] [facility] 2021-08-07 00:00:00 2021-08-07 00:00:00 Patient Secure Msg Desiree Mixon [facility] 1..114 350.1.13.10 4.2.7.2.686 [id number] [facility] 2021-08-04 10:00:00 2021-08-04 10:00:00 Outpatient PETRA MICHAUD [facility] [id number] [facility] 2021-08-04 00:00:00 2021-08-04 00:00:00 Patient Secure Msg Ca Martinez [facility] BUILDING 1..840.114 350.1.13.10 4.2.7.2.686 [id number] [id number] [facility] 2021-08-03 11:00:00 2021-08-03 12:48:43 Office Visit Juan Diaz [facility]. ..840.114 350.1.13.10 4.2.7.2.686 [id number] [facility] 2021-08-03 11:00:00 2021-08-03 12:48:43 Outpatient JUAN YANG [facility] [id number] [facility] 2021-08-03 11:00:00 2021-08-03 11:00:00 Outpatient Farzana DIAZ JUAN [facility] [id number] [facility] 2021-08-03 00:00:00 2021-08-03 00:00:00 Patient Secure Yin Zhenglara Cannon [facility] ..840.114 350.1.13.10 4.2.7.2.686 [id number] [facility] 2021-08-02 00:00:00 2021-08-02 00:00:00 Telephone Ca Martinez [facility]ING 1..840.114 350.1.13.10 4.2.7.2.686 [id number] [facility] 2021-07-21 08:00:00 2021-07-21 08:52:53 Outpatient DARRION QUIROZ HOWARD [facility] [id number] [facility] 2021-07-17 11:30:00 2021-07-17 11:30:00 Outpatient CA ARAUZ [facility] [id number] [facility] 2021-07-17 00:00:00 2021-07-17 00:00:00 Patient Secure Msg Ca Martinez [facility]O [facility] OFFICE BUILDING 1.2.840.114 350.1.13.10 4.2.7.2.686 [id number] [facility] 2021-06-19 00:00:00 2021-06-19 00:00:00 Telephone Ca Martinez [facility] OFFICE BUILDING 1.2.840.114 350.1.13.10 4.2.7.2.686 [id number] [facility] 2021-06-09 00:00:00 2021-06-09 00:00:00 Telephone Reji Díaz [facility] NAL BUILDING 1.2.840.114 350.1.13.10 4.2.7.2.686 [id number] [facility] 2021-06-06 11:15:00 2021-06-06 11:15:00 Outpatient TETO BRANTLEY [facility] [id number] [facility] 2021-06-06 11:15:00 2021-06-06 11:15:00 Outpatient TETO BRANTLEY [facility] [id number] [facility] 2021-06-02 15:45:00 2021-06-02 15:45:00 Outpatient CLAUDETTE CEDILLO [facility] [id number] [facility] 2021-05-31 10:00:00 2021-05-31 10:46:31 Outpatient CA ARAUZ [facility] [id number] [facility] 2021-05-31 10:00:00 2021-05-31 10:46:31 Office Visit Juan Ca [facility] BUILDING 1.2.840.114 350.1.13.10 4.2.7.2.686 [id number] [facility] 2021-05-31 10:00:00 2021-05-31 10:46:31 Outpatient R JUAN AC [facility] [id number] [facility] 2021-05-31 00:00:00 2021-05-31 00:00:00 Orders Only Doctor Unassigned, [place] [facility] 1.2.840.114 350.1.13.10 4.2.7.2.686 [id number] [facility] 2021-05-26 00:00:00 2021-05-26 00:00:00 Telephone Skylar Groves [facility] MEDICAL OFFICE BUILDING 1.2.840.114 350.1.13.10 4.2.7.2.686 [id number] [facility] 2021-05-26 00:00:00 2021-05-26 00:00:00 Patient Secure Msg Prasanna Vargas [facility] BUILDING 1.2.840.114 350.1.13.10 4.2.7.2.686 [id number] [facility] 2021-05-25 14:00:00 2021-05-25 14:30:00 Telemedici ne Visit Skylar Groves [facility] OFF[facility] 1.2.840.114 350.1.13.10 4.2.7.2.686 [id number] [facility] 2021-05-25 14:00:00 2021-05-25 14:00:00 Outpatient R SKYLAR GROVES [facility] [id number] [facility] 2021-05-25 14:00:00 2021-05-25 14:00:00 Outpatient R SKYLAR GROVES [facility] [id number] [facility] 2021-05-25 00:00:00 2021-05-25 00:00:00 Patient Secure Msg Skylar Groves [facility] 1.2.840.114 350.1.13.10 4.2.7.2.686 [id number] [facility] 2021-05-25 00:00:00 2021-05-25 00:00:00 Patient Secure Msg Skylar Groves [facility] MEDICAL OFFICE BUILDING 1.2.840.114 350.1.13.10 4.2.7.2.686 [id number] 044 [id number] [facility] 2021-05-24 00:00:00 2021-05-24 00:00:00 Telephone Rad SerraHPilar [facility] BUILDING 1.2.840.114 350.1.13.10 4.2.7.2.686 [id number] [facility] 2021-05-24 00:00:00 2021-05-24 00:00:00 Patient Secure Msg Rad SerraHPilar [facility] BUILDING 1.2.840.114 350.1.13.10 4.2.7.2.686 [id number] [facility] 2021-05-24 00:00:00 2021-05-24 00:00:00 Patient Secure Msg Claudette Evans A [facility] MEDICAL OFFICE BUILDING 1.2.840.114 350.1.13.10 4.2.7.2.686 [id number] [facility] 2021-05-23:00:00 2021-05-23 10:00:00 Outpatient R [facility] [id number] [facility] 2021-05-23 10:00:00 2021-05-23 10:00:00 Outpatient R [facility] [id number] [facility] 2021-05-23 00:00:00 2021-05-23 00:00:00 Patient Secure Carmelina Hindsrico A [facility] T[facility] 1..840.114 350.1.13.10 4.2.7.2.686 [id number] [facility] 2021-05-16 09:00:00 2021-05-16 09:00:00 Outpatient TETO BRANTLEY [facility] [id number] [facility] 2021-05-12 00:00:00 2021-05-12 00:00:00 Orders Only Doctor Unassigned, [place] [facility] 1..840.114 350.1.13.10 4.2.7.2.686 [id number] [facility] 2021-05-10 13:00:00 2021-05-10 13:00:00 Outpatient Farzana CRISTINA CARMELINARICO [facility] [id number] [facility] 2021-05-10 13:00:00 2021-05-10 13:00:00 Outpatient Farzana CRISTINACLAUDETTE [facility] [id number] [facility] 2021-05-09 00:00:00 2021-05-09 00:00:00 Telephone Prasanna Vargas [facility] BUILDING 1..840.114 350.1.13.10 4.2.7.2.686 [id number] [facility] 2021-05-09 00:00:00 2021-05-09 00:00:00 Patient Secure Rad [facility] BU[facility] 1.2.840.114 350.1.13.10 4.2.7.2.686 [id number] [facility] 2021-05-08 16:00:00 2021-05-08 16:00:00 Outpatient JE CRABTREE [facility] [id number] [facility] 2021-05-08 16:00:00 2021-05-08 16:00:00 [facility] [id number] 2021-05-08 00:00:00 2021-05-08 00:00:00 Patient Secure Msg DelroyRad KayceePilarPauloPilar [facility] BUILDING 1.2.840.114 350.1.13.10 4.2.7.2.686 [id number] [facility] 2021-05-08 00:00:00 2021-05-08 00:00:00 Patient Secure Msg Rad SerraPauloPilar [facility] BUILDING 1.2.840.114 350.1.13.10 4.2.7.2.686 [id number] [facility] 2021-05-04 00:00:00 2021-05-04 00:00:00 Patient Secure Msg SerraRadPauloPilar [facility] BUILDING 1.2.840.114 350.1.13.10 4.2.7.2.686 [id number] [facility] 2021-05-04 00:00:00 2021-05-04 00:00:00 Patient Secure Msg ArjunLaithtay [facility] BUILDING 1.2.840.114 350.1.13.10 4.2.7.2.686 [id number] [facility] 2021-05-03 11:15:36 2021-05-03 23:59:00 Outpatient R REJI DÍAZ [facility] [id number] [facility] 2021-05-03 11:15:36 2021-05-03 23:59:00 Hospital Encounter Reji Díaz [facility] BUILDING 1.2.840.114 350.1.13.10 4.2.7.2.686 [id number] [facility] 2021-05-03 00:00:00 2021-05-03 00:00:00 Telephone Claudette Evans [facility] MEDICAL OFFICE BUILDING 1..840.114 350.1.13.10 4.2.7.2.686 [id number] 044 [id number] [facility] 2021-05-02 00:00:00 2021-05-02 00:00:00 Telephone Rad Serra [facility] BUILDING 1..840.114 350.1.13.10 4.2.7.2.686 [id number] [facility] 2021-05-02 00:00:00 2021-05-02 00:00:00 Patient Secure Msg Claudette Evans [facility] OFF[facility] BUILD[facility] 1..840.114 350.1.13.10 4.2.7.2.686 [id number] 044 [id number] [facility] 2021-05-02 00:00:00 2021-05-02 00:00:00 Telephone Claudette Evans [facility] OFF[facility] BUILD[facility] 1..840.114 350.1.13.10 4.2.7.2.686 [id number] 044 [id number] [facility] 2021-05-02 00:00:00 2021-05-02 00:00:00 Patient Secure Msg Delroy Sendzohra [facility] NAL BUILDING 1..840.114 350.1.13.10 4.2.7.2.686 [id number] [facility] 2021-05-02 00:00:00 2021-05-02 00:00:00 Patient Secure Claudette Hinds [facility] MEDICAL OFFICE BUILDING 1..840.114 350.1.13.10 4.2.7.2.686 [id number] 044 [id number] [facility] 2021-04-28 00:00:00 2021-04-28 00:00:00 Patient Secure Claudette Hinds [facility] OFF[facility] BUILDING 1..840.114 350.1.13.10 4.2.7.2.686 [id number] [facility] 2021-04-27 14:24:00 2021-04-27 15:49:00 Emergency X MAGGIE HAMILTON [facility] ERT [id number] [facility] 2021-04-27 14:24:00 2021-04-27 15:49:00 Emergency Maggie Hamilton [facility] 1..84.114 350.1.13.10 4.2.7.2.686 [id number] [facility] 2021-04-27 11:15:00 2021-04-27 11:30:00 Laboratory Only Only, Ang Db Test Unknown, Attending Thony Johnson [facility] MEDICAL OFFICE BUILDING 1..840.114 350.1.13.10 4.2.7.2.686 [id number] [facility] 2021-04-27 11:15:00 2021-04-27 11:15:00 Outpatient R THOYN JOHNSON [facility] [id number] [facility] 2021-04-27 00:00:00 2021-04-27 00:00:00 Orders Only Doctor Unassigned, [place] [facility] 1.2.840.114 350.1.13.10 4.2.7.2.686 [id number] [facility] 2021-04-20 15:00:00 2021-04-20 15:00:00 Outpatient SCOTT RENEE [facility] [id number] [facility] 2021-04-13 00:00:00 2021-04-13 00:00:00 Patient Secure Msg Claudette Evans [facility] OFF[facility] BUILDING 1.2.840.114 350.1.13.10 4.2.7.2.686 [id number] [facility] 2021-04-12 00:00:00 2021-04-12 00:00:00 Telephone VocaCarmelina ibrahimlgbonnie [facility] BUILDING 1.2.840.114 350.1.13.10 4.2.7.2.686 [id number] [facility] 2021-03-27 00:00:00 2021-03-27 00:00:00 Telephone Prasanna Vargas [facility] BUILDING 1.2.840.114 350.1.13.10 4.2.7.2.686 [id number] [facility] 2021-03-24 00:00:00 2021-03-24 00:00:00 Patient Secure Msg Doctor Unassigned, [place] [facility] 1.2840.114 350.1.13.10 4.2.7.2.686 [id number] [facility] 2021-03-23 13:30:00 2021-03-23 13:30:00 Outpatient PINO AGUIAR [facility] [id number] [facility] 2021-03-23 13:30:00 2021-03-23 13:30:00 Outpatient R JOSE HOFFОЛЕГELE [facility] [id number] [facility] 2021-03-22 09:20:00 2021-03-22 09:20:00 Outpatient R ANN-MARIEMARIA LUZ ADITYA JEANNA, [facility] [id number] [facility] 2021-03-22 09:20:00 2021-03-22 09:20:00 Outpatient R NEHEMIAH MEEKSMEGHANEz MEEKS, [facility] [id number] [facility] 2021-03-20 00:00:00 2021-03-20 00:00:00 Outpatient R CLAUDETTE EVANS [facility] [id number] [facility] 2021-03-18 00:00:00 2021-03-18 00:00:00 Case Management Claudette Evans [facility] MEDICAL OFFICE BUILDING 1.2.840.114 350.1.13.10 4.2.7.2.686 [id number] [facility] 2021-03-16 11:16:07 2021-03-16 11:31:07 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, Filippo - Claudette Goodson [facility] ANGLEROBERTA ROSENE?[facility] MEDICAL OFFICE BUILDING 1.2.840.114 350.1.13.10 4.2.7.2.686 [id number] [facility] 2021-03-16 11:30:00 2021-03-16 11:30:00 Outpatient R CLAUDETTE EVANS [facility] [id number] [facility] 2021-03-16 11:00:00 2021-03-16 11:14:45 Outpatient R CLAUDETTE EVANS [facility] [id number] [facility] 2021-03-16 10:00:58 2021-03-16 11:14:45 Office Visit Claudette Evans Kassandra [facility] MEDICAL OFFICE BUILDING 1..840.114 350.1.13.10 4.2.7.2.686 [id number] [facility] 2021-03-16 00:00:00 2021-03-16 00:00:00 Patient Secure Msg Claudette Evans [facility] MEDICAL OFFICE BUILDING 1.84.114 350.1.13.10 4.2.7.2.686 [id number] [facility] 2021-03-02 16:15:00 2021-03-02 16:15:00 Outpatient R CRISTINACARMELINA IBRAHIMRICO [facility] [id number] [facility] 2021-02-28 18:30:00 2021-02-28 18:30:00 Outpatient R WILLIE MEDRANO [facility] [id number] [facility] 2021-02-28 00:00:00 2021-02-28 00:00:00 Telephone Claudette Evans [facility] [place]?[facility] Medical Office Building 1.840.114 350.1.13.10 4.2.7.2.686 [id number] [facility] 2021-02-27 09:00:00 2021-02-27 09:00:00 Outpatient AMELIA OBRIEN [facility] [id number] [facility] 2021-02-23 00:00:00 2021-02-23 00:00:00 Telephone Claudette Evans [facility] [place]?[facility] Medical Office Building 1.840.114 350.1.13.10 4.2.7.2.686 [id number] [facility] 2021-02-10 18:12:00 2021-02-10 23:39:00 Emergency Kaycee Méndez [facility] 1.84.114 350.1.13.10 4.2.7.2.686 [id number] [facility] 2021-02-10 00:00:00 2021-02-10 00:00:00 Patient Secure Msg Branden Evansful A [facility] ANGLEROBERTA LUNDBERG?[facility] MEDICAL OFFICE BUILDING 1.2.840.114 350.1.13.10 4.2.7.2.686 [id number] [id number] [facility] 2021-02-10 00:00:00 2021-02-10 00:00:00 Patient Secure Msg Branden Evansful A [facility] ANGLEROBERTA ROSENE?[facility] MEDICAL OFFICE BUILDING 1.2840.114 350.1.13.10 4.2.7.2.686 [id number] [facility] 2021-02-10 00:00:00 2021-02-10 00:00:00 Patient Secure Msg Claudette Evans A [facility] ANGLEORBERTA LUNDBERG?[facility] MEDICAL OFFICE BUILDING 1.2.840.114 350.1.13.10 4.2.7.2.686 [id number] [id number] [facility] 2021-02-10 00:00:00 2021-02-10 00:00:00 Patient Secure Msg Claudette Evans [facility] LULU LUNDBERG?[facility] MEDICAL OFFICE BUILDING 1.2.840.114 350.1.13.10 4.2.7.2.686 [id number] 044 [id number] [facility] 2021-02-09 13:40:00 2021-02-09 23:59:00 Hospital Encounter Claudette Evans [facility] [place] Dave?[facility] Medical Office Building 1.2.840.114 350.1.13.10 4.2.7.2.686 [id number] [facility] 2021-02-09 13:49:05 2021-02-09 14:04:05 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, Ang - Db Claud[facility] 1.2.840.114 350.1.13.10 4.2.7.2.686 [id number] [facility] 2021-02-09 12:23:13 2021-02-09 13:47:12 Office Visit [facility] 1.2.840.114 350.1.13.10 4.2.7.2.686 [id number] [facility] 2021-02-09 13:00:00 2021-02-09 13:00:00 Outpatient R CLAUDETTE EVANS [facility] [id number] [facility] 2021-02-09 00:00:00 2021-02-09 00:00:00 Patient Secure Msg Doctor Unassigned, [place] [facility] 1..840.114 350.1.13.10 4.2.7.2.686 [id number] [facility] 2021-02-08 10:20:00 2021-02-08 10:20:00 Outpatient R ADITYA MEEKS STRAHIL [facility] [id number] [facility] 2021-02-07 00:00:00 2021-02-07 00:00:00 Patient Secure Msg Claudette Evans [facility] 1.2.840.114 350.1.13.10 4.2.7.2.686 [id number] [facility] 2021-02-02 10:30:00 2021-02-02 10:30:00 Outpatient SKYLAR CEBALLOS [facility] [id number] [facility] 2021-02-02 00:00:00 2021-02-02 00:00:00 Telephone Claudette Evans [facility] Talya?[facility] Medical Office Building 1.2.840.114 350.1.13.10 4.2.7.2.686 [id number] [facility] 2021-02-01 08:30:00 2021-02-01 08:30:00 Outpatient SKYLAR CEBALLOS [facility] [id number] [facility] 2021-01-31 18:44:04 2021-01-31 19:41:26 Urgent Care Flaco Boyd [facility] Talya?[facility] Medical Office Building 1.2840.114 350.1.13.10 4.2.7.2.686 [id number] [facility] 2021-01-31 19:00:00 2021-01-31 19:00:00 Outpatient R FLACO BOYD [facility] [id number] [facility] 2021-01-31 00:00:00 2021-01-31 00:00:00 Telephone Claudette Evans Kassandra [facility] Talya?[facility] Medical Office Building 1.2840.114 350.1.13.10 4.2.7.2.686 [id number] [facility] 2021-01-31 00:00:00 2021-01-31 00:00:00 Patient Secure Msg Claudette Evans [facility] TALYA?[facility] MEDICAL OFFICE BUILDING 1.2.840.114 350.1.13.10 4.2.7.2.686 [id number] [facility] 2021-01-30 00:00:00 2021-01-30 00:00:00 Tele[facility] 1.2.840.114 350.1.13.10 4.2.7.2.686 [id number] [facility] 2021-01-30 00:00:00 2021-01-30 00:00:00 Patient Secure Msg Claudette Evans [facility] OFFICE BUILDING ONE 1.2.840.114 350.1.13.10 4.2.7.2.686 [id number] [id number] [facility] 2021-01-26 14:00:00 2021-01-26 14:00:00 Outpatient R RAD SERRA [facility] [id number] [facility] 2021-01-26 00:00:00 2021-01-26 00:00:00 Patient Secure Msg Skylar Groves [facility] TALYA?[facility] OFFICE BUILDING 1.2.840.114 350.1.13.10 4.2.7.2.686 [id number] [facility] 2021-01-25 15:00:00 2021-01-25 15:00:00 Outpatient R [facility] [id number] [facility] 2021-01-21 00:00:00 2021-01-21 00:00:00 Patient Secure Msg Skylar Groves [facility] TALYA?[facility] MEDICAL OFFICE BUILDING 1.2.840.114 350.1.13.10 4.2.7.2.686 [id number] [facility] 2021-01-20 16:51:22 2021-01-20 17:12:41 Telemedici ne Visit Skylar Groves [facility] Talya?[facility] Medical Office Building 1.2.840.114 350.1.13.10 4.2.7.2.686 [id number] [facility] 2021-01-20 16:30:00 2021-01-20 16:30:00 Outpatient R SKYLAR GROVES [facility] [id number] [facility] 2021-01-19 10:15:00 2021-01-19 10:15:00 Outpatient R KAYLEY GARCÍA [facility] [id number] [facility] 2021-01-14 00:00:00 2021-01-14 00:00:00 Case Management Venkat Kassandra S [facility] 1..114 350.1.13.10 4.2.7.2.686 [id number] [facility] 2021-01-14 00:00:00 2021-01-14 00:00:00 Patient Secure Msg Doctor Unassigned, [place] [facility] 1.114 350.1.13.10 4.2.7.2.686 [id number] [facility] 2021-01-12 16:10:00 2021-01-12 19:45:00 Emergency Hany Matthews [facility] 1.114 350.1.13.10 4.2.7.2.686 [id number] [facility] 2021-01-12 15:20:00 2021-01-12 15:20:00 Outpatient R WILLIE MEDRANO [facility] [id number] [facility] 2021-01-12 14:46:57 2021-01-12 15:06:57 Urgent Care Thony Johnson [facility] 1..114 350.1.13.10 4.2.7.2.686 [id number] [facility] 2020-12-26 15:30:00 2020-12-26 16:13:32 Outpatient R RAD SERRA [facility] [id number] [facility] 2020-12-26 15:30:00 2020-12-26 16:13:32 Office Visit Rad Serra [facility] PROFESSIO NAL BUILDING 1..114 350.1.13.10 4.2.7.2.686 [id number] [facility] 2020-12-26 15:00:32 2020-12-26 16:13:32 Office Visit Rad Serra [facility] Building 1.2.840.114 350.1.13.10 4.2.7.2.686 [id number] [facility] 2020-12-26 15:30:00 2020-12-26 15:30:00 Outpatient R RAD SERRA [facility] [id number] [facility] 2020-11-29 00:00:00 2020-11-29 00:00:00 Patient Secure Msg Rad Ser[facility] BU[facility] 1.2.840.114 350.1.13.10 4.2.7.2.686 [id number] [facility] 2020-11-22 11:00:00 2020-11-22 11:00:00 Outpatient R DESIREE MIXON [facility] [id number] [facility] 2020-11-10 18:42:46 2020-11-10 19:53:43 Urgent Care Dennis Alissa [facility] Office Building One 1.2.840.114 350.1.13.10 4.2.7.2.686 [id number] 2020-11-10 19:00:00 2020-11-10 19:00:00 Outpatient R [facility] [id number] [facility] 2020-10-31 18:52:00 2020-10-31 22:15:00 Emergency Kaycee Méndez [facility] 1.2.840.114 350.1.13.10 4.2.7.2.686 [id number] 2020-10-31 19:00:00 2020-10-31 19:00:00 Outpatient R BEBA KAUR [facility] [id number] [facility] 2020-10-31 00:00:00 2020-10-31 00:00:00 Orders Only Doctor Unassigned, [place] [facility] 1.2.840.114 350.1.13.10 4.2.7.2.686 [id number] 2020-10-20 14:02:00 2020-10-20 17:13:00 Emergency Dev, Kaycee Sharlene [facility] 1.2.840.114 350.1.13.10 4.2.7.2.686 [id number] 2020-10-18 00:00:00 2020-10-18 00:00:00 Patient Secure Msg Prasanna Vargas [facility] BUILD[facility] 1.20.114 350.1.13.10 4.2.7.2.686 [id number] [facility] 2020-10-14 10:00:00 2020-10-14 23:59:00 Hospital Encounter Prasanna Vargas [facility] 1.2840.114 350.1.13.10 4.2.7.2.686 [id number] 2020-10-14 13:30:00 2020-10-14 13:30:00 Outpatient DESIREE STONE [facility] [id number] [facility] 2020-10-11 00:00:00 2020-10-11 00:00:00 Patient Secure Msg Prasanna Vargas [facility] PROFESSIO [facility] BUILDING 1.2840.114 350.1.13.10 4.2.7.2.686 [id number] [facility] 2020-10-11 00:00:00 2020-10-11 00:00:00 Patient Secure Msg [facility] 1.2840.114 350.1.13.10 4.2.7.2.686 [id number] [facility] 2020-10-09 12:00:00 2020-10-09 15:57:00 Emergency Lydia Kim [facility] 1.2.840.114 350.1.13.10 4.2.7.2.686 [id number] 2020-10-07 00:00:00 2020-10-07 00:00:00 Patient Secure Msg Prasanna [facility] 1.2.840.114 350.1.13.10 4.2.7.2.686 [id number] [facility] 2020-10-07 00:00:00 2020-10-07 00:00:00 Patient Secure Msg Prasanna [facility] 1.2.840.114 350.1.13.10 4.2.7.2.686 [id number] [facility] 2020-10-07 00:00:00 2020-10-07 00:00:00 Patient Secure Msg Prasanna Vargas [facility] PROFESSIO NAL BUILDING 1.2.840.114 350.1.13.10 4.2.7.2.686 [id number] 134 [id number] [facility] 2020-10-07 00:00:00 2020-10-07 00:00:00 Patient Secure Msg Prasanna Vargas [facility] PROFESSIO NAL BUILDING 1.2.840.114 350.1.13.10 4.2.7.2.686 [id number] [facility] 2020-10-07 00:00:00 2020-10-07 00:00:00 Patient Secure Msg Prasanna Vargas [facility] PROFESSIO NAL BUILDING 1.2.840.114 350.1.13.10 4.2.7.2.686 [id number] [facility] 2020-10-07 00:00:00 2020-10-07 00:00:00 Patient Secure Msg Prasanna [facility] 1.2.840.114 350.1.13.10 4.2.7.2.686 [id number] [facility] 2020-10-07 00:00:00 2020-10-07 00:00:00 Patient Secure Msg [facility] BU[facility] 1.2.840.114 350.1.13.10 4.2.7.2.686 [id number] 134 [id number] [facility] 2020-10-06 08:53:00 2020-10-06 09:46:44 Office Visit Prasanna Vargas [facility] Building 1.2.840.114 350.1.13.10 4.2.7.2.686 [id number] 2020-10-06 09:30:00 2020-10-06 09:30:00 Outpatient PRASANNA LOOMIS [facility] [id number] [facility] 2020-10-04 14:00:00 2020-10-04 14:00:00 Outpatient DESIREE STONE [facility] [id number] [facility] 2020-09-30 10:30:00 2020-09-30 10:30:00 Outpatient DESIREE STONE [facility] [id number] [facility] 2020-09-29 13:45:00 2020-09-29 13:45:00 Outpatient PREET KRISHNA [facility] [id number] [facility] 2020-09-06 15:30:00 2020-09-06 15:30:00 Outpatient PRASANNA LOOMIS [facility] [id number] [facility] 2020-09-05 00:00:00 2020-09-05 00:00:00 [facility] Secure [facility] 1.2.840.114 350.1.13.10 4.2.7.2.686 [id number] [facility] 2020-09-02 15:40:00 2020-09-02 15:40:00 Outpatient DARRION QUIROZ HOWARD [facility] [id number] [facility] 2020-08-31 10:30:00 2020-08-31 10:30:00 Outpatient RAD MATAMOROS [facility] [id number] [facility] 2020-08-31 00:00:00 2020-08-31 00:00:00 [facility] 1.2.840.114 350.1.13.10 4.2.7.2.686 [id number] [facility] 2020-08-18 09:30:00 2020-08-18 09:30:00 Outpatient R PRASANNA VARGAS [facility] [id number] [facility] 2020-08-11 13:30:00 2020-08-11 13:30:00 Outpatient R PRASANNA VARGAS [facility] [id number] [facility] 2020-08-04 14:00:00 2020-08-04 14:00:00 Outpatient R SCOTT FLETCHER [facility] [id number] [facility] 2020-07-28 10:30:00 2020-07-28 10:30:00 Outpatient R RAD SERRA [facility] [id number] [facility] 2020-06-30 16:15:00 2020-06-30 16:15:00 Outpatient CLAUDETTE CEDILLO [facility] [id number] [facility] 2020-06-17 15:00:00 2020-06-17 15:00:00 Outpatient DARRION QUIROZ HOWARD [facility] [id number] [facility] 2020-06-16 15:30:00 2020-06-16 15:30:00 Outpatient R RAD SERRA [facility] [id number] [facility] 2020-06-09 12:30:00 2020-06-09 12:30:00 Outpatient NI YUNG [facility] [id number] [facility] 2020-06-08 08:00:00 2020-06-08 08:00:00 Outpatient R NI DISLA [facility] [id number] [facility] 2020-06-02 09:00:00 2020-06-02 09:00:00 Outpatient R RAD SERRA [facility] [id number] [facility] 2020-05-28 10:00:00 2020-05-28 10:00:00 Outpatient R BEBA KAUR [facility] [id number] [facility] 2020-05-26 00:00:00 2020-05-26 00:00:00 Patient Secure Msg Claudette Evans [facility] ONE 1.2.840.114 350.1.13.10 4.2.7.2.686 [id number] [facility] 2020-05-24 10:00:00 2020-05-24 10:00:00 Outpatient R NI DISLA [facility] [id number] [facility] 2020-05-24 00:00:00 2020-05-24 00:00:00 Patient Secure Msg Doctor Unassigned, [place] [facility] 1.2.840.114 350.1.13.10 4.2.7.2.686 [id number] [facility] 2020-05-19 16:30:00 2020-05-19 16:30:00 Outpatient R OSITO HITCHCOCK [facility] [id number] [facility] 2020-05-17 13:00:00 2020-05-17 13:00:00 Outpatient DARRION QUIROZ HOWARD [facility] [id number] [facility] 2020-05-16 16:00:00 2020-05-16 16:00:00 Outpatient R CARMELINA EVANSLGBONNIE [facility] [id number] [facility] 2020-05-09 00:00:00 2020-05-09 00:00:00 Patient Secure Msg Claudette Evans [facility] ONE .840.114 350.1.13.10 4.2.7.2.686 [id number] [facility] 2020-05-08 10:24:00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 (AUTOMATED)2024-02-24 01:35:26* Test Item Value Reference Range Interpretation Comme nts POCT GLU (test code = 5974709744) 95 mg/dL 70-110 Lab Interpretation (test cod e = 74372-8) Normal [facility] IrvingHcv Htmsoggo3613-34-18 21:28:55* Test Item Value Reference Range Interpretation Comme nts HCV Ab (test code = 97763-0) Negative HCV Semi-Quantitative (test code = 74947-5) 0.01 [facility] IrvingHcv Sfvpxuyl8697-34-25 21:28:55* Test Item Value Reference Range Interpretation Comme nts HCV Ab (test code = 59087-9) Negative HCV Semi-Quantitative (test code = 88404-6) 0.01 [facility] IrvingC-Reactive Ayxxwhj9938-62-02 18:59:19* Test Item Value Reference Range Interpretation Comme nts CRP (test code = 0483170604) 0.3 mg/dL <=0.8 Lab Interpretation (test cod e = 19212-2) Normal [facility] IrvingC-Reactive Cfguncb0971-33-48 18:59:19* Test Item Value Reference Range Interpretation Comme nts CRP (test code = 3458354940) 0.3 mg/dL <=0.8 Lab Interpretation (test cod e = 56480-2) Normal [facility] Ylppmhpj2082-89-28 16:37:53* Test Item Value Reference Range Interpretation Comme nts HBsAB (test code = 5179325025) Negative HBsAb Semi-Quantitative (test code = 8897479962) 0.00 mIU/mL WESLEY (test code = WESLEY) Interpretation: ?Hepatitis B Surface Antibody ? Negative - Patient is considered to be not immune to infection with HBV. ? ? Positive - Anti-HBs detected at greater than or equal to 12 mIU/mL. ?Patient is considered to be immune to infection with HBV. ? [facility] Doukfnkj8118-22-41 16:37:53* Test Item Value Reference Range Interpretation Comme nts HBsAB (test code = 6648898385) Negative HBsAb Semi-Quantitative (test code = 7560711301) 0.00 mIU/mL WESLEY (test code = WESLEY) Interpretation: ?Hepatitis B Surface Antibody ? Negative - Patient is considered to be not immune to infection with HBV. ? ? Positive - Anti-HBs detected at greater than or equal to 12 mIU/mL. ?Patient is considered to be immune to infection with HBV. ? [facility] with Aimqim6658-05-21 16:37:47* Test Item Value Reference Range Interpretation Comme nts HIV Semi-quantitative (test code = 13128-1) 0.09 Negative WESLEY (test code = WESLEY) Non-reactive for HIV-1 antigen and HIV-1/HIV-2 antibodies. ?No laboratory evidence of HIV infection. ?Repeat in 2-4 weeks if acute HIV infection is suspected. [facility] B Surface Agfrwyi4414-71-92 16:37:47 * Test Item Value Reference Range Interpretation Comme [facility] HBs[facility] Semi-Quantitative (maeve t code = 5195-3) 0.12 [facility] with Kskcww9084-03-11 16:37:47* Test Item Value Reference Range Interpretation Comme [facility] HIV Semi-quantitative (test code = 66531-0) 0.09 Negative WESLEY (test code = WESLEY) Non-reactive for HIV-1 antigen and HIV-1/HIV-2 antibodies. ?No laboratory evidence of HIV infection. ?Repeat in 2-4 weeks if acute HIV infection is suspected. [facility] B Surface Pzvqloi1851-23-67 16:37:47 * Test Item Value Reference Range Interpretation Comme [facility] HBsAg Semi-Quantitative (maeve t code = 5195-3) 0.12 Negative [facility] IrvingHbc Antibody (IgM & IgG)2024-02-23 16:37:42* Test Item Value Reference Range Interpretation Comme nts HBC (test code = 6827684753) Negative HBC Semi-Quantitative (test code = 0184620914) 3.51 [facility] IrvingHbc Antibody (IgM & IgG)2024-02-23 16:37:42* Test Item Value Reference Range Interpretation Comme nts HBC (test code = 0664408842) Negative HBC Semi-Quantitative (test code = 5085260643) 3.51 [facility] IrvingSedimentation Spdn9749-53-25 13:48:13* Test Item Value Reference Range Interpretation Comme nts ESR (test code = 88628-9) 23 2-30 Lab Interpretation (test cod e = 49769-5) Normal [facility] IrvingSedimentation Bkxb1839-14-47 13:48:13* Test Item Value Reference Range Interpretation Comme nts ESR (test code = 31138-7) 23 2-30 Lab Interpretation (test cod e = 43668-6) Normal [facility] IrvingHepatic Function Panel (04170) (ALB,T.PRO,BILI T,BU/BC,ALT,AST,ALK PHOS)2024-02-22 19:51:55* Test Item Value Reference Range Interpretation Comme nts TOTAL BILI (test code = 6235008750) 1.0 mg/dL 0.1-1.1 BILI UNCON (test code = 5021019007) 0.4 mg/dL 0.1-1.1 BILI CONJ (test code = 8524394137) 0.0 mg/dL 0.0-0.3 T PROTEIN (test code = 1751690844) 8.5 g/dL 6.3-8.2 H ALBUMIN (test code = 7443485141) 4.9 g/dL 3.5-5.0 ALK PHOS (test code = 5953287425) 87 U/L 34-122 Slight hemolysis ALTv (test code = 1742-6) 77 U/L 5-35 H AST(SGOT) (test code = 4584777256) 57 U/L 13-40 H Slight hemolysis Lab Interpretation (test code = 02180-0) Abnormal [facility] IrvingHepatic Function Panel (65324) (ALB,T.PRO,BILI T,BU/BC,ALT,AST,ALK PHOS)2024-02-22 19:51:55* Test Item Value Reference Range Interpretation Comme nts TOTAL BILI (test code = 5507646865) 1.0 mg/dL 0.1-1.1 BILI UNCON (test code = 1329266783) 0.4 mg/dL 0.1-1.1 BILI CONJ (test code = 6023043811) 0.0 mg/dL 0.0-0.3 T PROTEIN (test code = 3858341456) 8.5 g/dL 6.3-8.2 H ALBUMIN (test code = 3810886179) 4.9 g/dL 3.5-5.0 ALK PHOS (test code = 4673463363) 87 U/L 34-122 Slight hemolysis ALTv (test code = 1742-6) 77 U/L 5-35 H AST(SGOT) (test code = 8663764206) 57 U/L 13-40 H Slight hemolysis Lab Interpretation (test code = 04710-7) [facility] [id number] 18:19:37ORDERING PROVIDER: ?COLIN ELMORE MORRICAL HISTORY: Hematemesis TECHNIQUE: Frontal and lateral views of the Chest. [facility] [id number] 18:19:37ORDERING PROVIDER: ?COLIN ELMORE MORRICAL HISTORY: Hematemesis TECHNIQUE: Frontal and lateral views of the Chest. COMPARISON: [facility] ABDOMEN [id number] 17:50:15ORDERING PROVIDER: COLIN ELMORE MORRICAL HISTORY: N/v/diarrhea [...] lesions. ?There is normal corticalthickness, contour and echogenicity.[facility] ABDOMEN [id number] 17:50:15ORDERING PROVIDER: COLIN ELMORE MORRICAL HISTORY: N/v/diarrhea [...] lesions. ?There is normal corticalthickness, contour and echogenicity.[facility] [id number] 15:52:12* Test Item Value Reference Range Interpretation [facility]me [facility] TROPONIN I (test code = 3793329914) 0.006 ng/mL <=0.034 WESLEY (test code = [...] of biotin. Lab Interpretation (test code = 49703-7) Normal [facility] [id number] 15:52:12* Test Item Value Reference Range Interpretation Comme nts TROPONIN I (test code = 2529263104) 0.006 ng/mL <=0.034 WESLEY (test code = [...] of biotin. Lab Interpretation (test code = 68259-2) Normal [facility] [id number] 15:52:07* Test Item Value Reference Range Interpretation Comme nts PREG SERUM (test code = 4404272303) Negative WESLEY (test code = WESLEY) Less than 10 IU/L. ?If low titer or ectopic is suspected, resubmit specimen in 48-72 hours. [facility], [id number] 15:52:07* Test Item Value Reference Range Interpretation Comme nts PREG SERUM (test code = 3826202388) Negative WESLEY (test code = WESLEY) Less than 10 IU/L. ?If low titer or ectopic is suspected, resubmit specimen in 48-72 hours. [facility]12 15:40:04* Test Item Value Reference Range Interpretation Comme nts LIPASE (test code = 4970800023) 69 U/L 0-220 Lab Interpretation (test cod e = 64203-8) [facility]12 15:40:04* Test Item Value Reference Range Interpretation Comme nts LIPASE (test code = 4866955409) 69 U/L 0-220 Lab Interpretation (test cod e = 52602-0) Normal [facility]. METABOLIC PANEL ([id number])2024-02-22 15:40:03* Test Item Value Reference Range Interpretation Comme nts NA (test code = 5203890877) 137 mmol/L 135-145 K (test code = 1143379648) 3.9 mmol/L 3.5-5.0 Slight hemolysis CL (test code = 6558183333) 102 mmol/L 98-108 CO2 TOTAL (test code = 8817993179) 24 mmol/L 23-31 AGAP (test code = 3107398049) 11 2-16 BUN (test code = 7399104090) 9 mg/dL 7-23 Slight hemolysis GLUCOSE (test code = 2136488575) 94 mg/dL 70-110 CREATININE (test code = 2160-0) 0.70 mg/dL 0.50-1.04 TOTAL BILI (test code = 2500525974) 1.0 mg/dL 0.1-1.1 CALCIUM (test code = 5199898362) 9.3 mg/dL 8.6-10.6 T PROTEIN (test code = 4564357821) 8.4 g/dL 6.3-8.2 H ALBUMIN (test code = 6665132322) 5.0 g/dL 3.5-5.0 ALK PHOS (test code = 8538639728) 79 U/L 34-122 Slight hemolysis ALTv (test code = 1742-6) 74 U/L 5-35 H AST(SGOT) (test code = 0770836541) 57 U/L 13-40 H Slight hemolysis eGFR (test code = 01248-4) 120.2 mL/min/1.73m2 CKD-EPI eGFR (2020). Assuming creatinine has been stable day-to-day for at least three months, the eGFR indicates Category G1 (>= 90 mL/min/1.73 m2) Lab Interpretation (test code = 81693-8) [facility]OLIC [facility] (28012)2024-02-22 15:40:03* Test Item Value Reference Range Interpretation Comme nts NA (test code = 9481025705) 137 mmol/L 135-145 K (test code = 0688715599) 3.9 mmol/L 3.5-5.0 Slight hemolysis CL (test code = 1429877413) 102 mmol/L 98-108 CO2 TOTAL (test code = 7893893695) 24 mmol/L 23-31 AGAP (test code = 4894505215) 11 2-16 BUN (test code = 5355706231) 9 mg/dL 7-23 Slight hemolysis GLUCOSE (test code = 0271602391) 94 mg/dL 70-110 CREATININE (test code = 2160-0) 0.70 mg/dL 0.50-1.04 TOTAL BILI (test code = 3028206662) 1.0 mg/dL 0.1-1.1 CALCIUM (test code = 5567642541) 9.3 mg/dL 8.6-10.6 T PROTEIN (test code = 5128758625) 8.4 g/dL 6.3-8.2 H ALBUMIN (test code = 5633146432) 5.0 g/dL 3.5-5.0 ALK PHOS (test code = 0494406837) 79 U/L 34-122 Slight hemolysis ALTv (test code = 1742-6) 74 U/L 5-35 H AST(SGOT) (test code = 1022147735) 57 U/L 13-40 H Slight hemolysis eGFR (test code = 30346-1) 120.2 mL/min/1.73m2 CKD-EPI eGFR (2020). Assuming creatinine has been stable day-to-day for at least three months, the eGFR indicates Category G1 (>= 90 mL/min/1.73 m2) Lab Interpretation (test code = 34364-5) Abnormal [facility] WITH [id number] 15:35:41* Test Item Value Reference Range Interpretation [...] 34.3 g/dL 31.6-35.1 RDW-SD (test code = 51683-4) 41.3 fL 39.0-49.9 RDW-CV (test code = 788-0) 13.2 % 12.0-15.5 PLT (test code = 777-3) 329 166-358 MPV (test code = 51005-6) 9.9 fL 9.5-12.9 NRBC/100 WBC (test code = 7039515964) 0.0 0.0-10.0 NRBC x10^3 (test code = 9727316361) See_Comment [Automated messa ge] The system which generated this result transmitted reference range: 10*3/?L. The reference range was not used to interpret this result as normal/abnormal. GRAN MAT (NEUT) % (test code = 770-8) 66.5 % IMM GRAN % (test code = 7632071224) 0.30 % LYMPH % (test code = 736-9) 26.8 % MONO % (test code = 5905-5) 3.5 % EOS % (test code = 713-8) 2.3 % BASO % (test code = 706-2) 0.6 % GRAN MAT x10^3(ANC) (test code = 5501306004) 5.71 10*3/uL 1.88-7.09 IMM GRAN x10^3 (test code = 4140284451) 0.03 10*3/uL 0.00-0.06 LYMPH x10^3 (test code = 731-0) 2.30 10*3/uL 1.32-3.29 MONO x10^3 (test code = 742-7) 0.30 10*3/uL 0.33-0.92 L EOS x10^3 (test code = 711-2) 0.20 10*3/uL 0.03-0.39 BASO x10^3 (test code = 704-7) 0.05 10*3/uL 0.01-0.07 Lab Interpretation (test code = 90462-2) Abnormal [facility] WITH [id number] 15:35:41* Test Item Value Reference Range Interpretation [...] 34.3 g/dL 31.6-35.1 RDW-SD (test code = 29566-4) 41.3 fL 39.0-49.9 RDW-CV (test code = 788-0) 13.2 % 12.0-15.5 PLT (test code = 777-3) 329 166-358 MPV (test code = 88311-4) 9.9 fL 9.5-12.9 NRBC/100 WBC (test code = 8578485647) 0.0 0.0-10.0 NRBC x10^3 (test code = 5738752837) See_Comment [Automated messa ge] The system which generated this result transmitted reference range: 10*3/?L. The reference range was not used to interpret this result as normal/abnormal. GRAN MAT (NEUT) % (test code = 770-8) 66.5 % IMM GRAN % (test code = 7659293611) 0.30 % LYMPH % (test code = 736-9) 26.8 % MONO % (test code = 5905-5) 3.5 % EOS % (test code = 713-8) 2.3 % BASO % (test code = 706-2) 0.6 % GRAN MAT x10^3(ANC) (test code = 7535006560) 5.71 10*3/uL 1.88-7.09 IMM GRAN x10^3 (test code = 2792576687) 0.03 10*3/uL 0.00-0.06 LYMPH x10^3 (test code = 731-0) 2.30 10*3/uL 1.32-3.29 MONO x10^3 (test code = 742-7) 0.30 10*3/uL 0.33-0.92 L EOS x10^3 (test code = 711-2) 0.20 10*3/uL 0.03-0.39 BASO x10^3 (test code = 704-7) 0.05 10*3/uL 0.01-0.07 Lab Interpretation (test code = 71619-7) Abnormal [facility]. METABOLIC PANEL ([id number])2023-05-19 17:55:27* Test Item Value Reference Range Interpretation Comme nts NA (test code = 4848643282) 138 mmol/L 135-145 K (test code = 5698806339) 3.8 mmol/L 3.5-5.0 CL (test code = 6287382088) 107 mmol/L 98-108 CO2 TOTAL (test code = 3580336702) 21 mmol/L 23-31 L AGAP (test code = 1731363195) 10 2-16 BUN (test code = 9033942725) 8 mg/dL 7-23 GLUCOSE (test code = 7747055254) 89 mg/dL 70-110 CREATININE (test code = 1223296391) 0.69 mg/dL 0.50-1.04 TOTAL BILI (test code = 6914221329) 0.7 mg/dL 0.1-1.1 CALCIUM (test code = 9022611479) 8.3 mg/dL 8.6-10.6 L T PROTEIN (test code = 4436692175) 7.3 g/dL 6.3-8.2 ALBUMIN (test code = 4178111400) 4.1 g/dL 3.5-5.0 ALK PHOS (test code = 6461674137) 107 U/L 34-122 ALTv (test code = 1742-6) 75 U/L 5-35 H AST(SGOT) (test code = 0891287942) 42 U/L 13-40 H eGFR (test code = 80714-9) 121.4 mL/min/1.73m2 CKD-EPI eGFR (2020). Assuming creatinine has been stable day-to-day for at least three months, the eGFR indicates Category G1 (>= 90 mL/min/1.73 m2) Lab Interpretation (test code = 18678-0) [facility] 16:39:24* Test Item Value Reference Range Interpretation Comme nts LIPASE (test code = 6023813288) 40 U/L 0-220 Lab Interpretation (test cod e = 66347-9) [facility] W [id number] 16:27:28EXAM: CT ABDOMEN PELVIS W CONTRAST HISTORY: [...] tissue.[facility] CBC WITH [id number] 16:14:18* Test Item Value Reference Range Interpretation Comme nts WBC (test code = 6690-2) 6.32 See_Comment [Automated [employer]] The system which generated this result transmitted reference range: 4.30 - 11.10 10*3/?L. The reference range was not used to interpret this result as normal/abnormal. RBC (test code = 789-8) 4.61 See_Comment [Automated [employer]] The system which generated this result transmitted [...] 34.1 g/dL 31.6-35.1 RDW-SD (test code = 94755-8) 42.0 fL 39.0-49.9 RDW-CV (test code = 788-0) 13.0 % 12.0-15.5 PLT (test code = 777-3) 369 See_Comment H [Automated [employer] ge] The system which generated this result transmitted reference range: 166 - 358 10*3/?L. The reference range was not used to interpret this result as normal/abnormal. MPV (test code = 66900-1) 9.9 fL 9.5-12.9 NRBC/100 WBC (test code = 6075232052) 0.0 See_Comment [Automated [employer] ssage] The system which generated this result transmitted reference range: 0.0 - 10.0 /100 WBCs. The reference range was not used to interpret this result as normal/abnormal. NRBC x10^3 (test code = 8082146076) See_Comment [Automated [employer]] The system which generated this result transmitted reference range: 10*3/?L. The reference range was not used to interpret this result as normal/abnormal. GRAN MAT (NEUT) % (test code = 770-8) 64.8 % IMM GRAN % (test code = 5367656781) 0.50 % LYMPH % (test code = 736-9) 25.3 % MONO % (test code = 5905-5) 4.1 % EOS % (test code = 713-8) 4.7 % BASO % (test code = 706-2) 0.6 % GRAN MAT x10^3(ANC) (test code = 3771276555) 4.09 10*3/uL 1.88-7.09 IMM GRAN x10^3 (test code = 2202843610) 0.03 10*3/uL 0.00-0.06 LYMPH x10^3 (test code = 731-0) 1.60 10*3/uL 1.32-3.29 MONO x10^3 (test code = 742-7) 0.26 10*3/uL 0.33-0.92 L EOS x10^3 (test code = 711-2) 0.30 10*3/uL 0.03-0.39 BASO x10^3 (test code = 704-7) 0.04 10*3/uL 0.01-0.07 Lab Interpretation (test code = 10914-8) [facility]normal [facility] [id number] 15:31:00* Test Item Value Reference Range Interpretation Comme nts POCT PREG (test code = 1605) Negative On board controls acceptable with C Line (test code = 3574) Yes POCT PREG LOT # (test code = 3575) [id number] POCT PREG TEST DATE ( test code = 3576) 2024-07-21 Lab Interpretation (test cod e = 76418-4) Normal [facility] WITH [id number] 04:28:47* Test Item Value Reference Range Interpretation [...] 34.0 g/dL 31.6-35.1 RDW-SD (test code = 90835-4) 40.3 fL 39.0-49.9 RDW-CV (test code = 788-0) 13.1 % 12.0-15.5 PLT (test code = 777-3) 307 See_Comment [Automated messa ge] The system which generated this result transmitted reference range: 166 - 358 10*3/?L. The reference range was not used to interpret this result as normal/abnormal. MPV (test code = 20864-1) 11.0 fL 9.5-12.9 NRBC/100 WBC (test code = 3523430958) 0.0 See_Comment [Automated me ssage] The system which generated this result transmitted reference range: 0.0 - 10.0 /100 WBCs. The reference range was not used to interpret this result as normal/abnormal. NRBC x10^3 (test code = 0329385110) See_Comment [Automated messa ge] The system which generated this result transmitted reference range: 10*3/?L. The reference range was not used to interpret this result as normal/abnormal. GRAN MAT (NEUT) % (test code = 770-8) 52.0 % IMM GRAN % (test code = 4937564414) 0.20 % LYMPH % (test code = 736-9) 38.0 % MONO % (test code = 5905-5) 4.6 % EOS % (test code = 713-8) 4.6 % BASO % (test code = 706-2) 0.6 % GRAN MAT x10^3(ANC) (test code = 8828187750) 2.84 10*3/uL 1.88-7.09 IMM GRAN x10^3 (test code = 3841475375) 0.00-0.06 LYMPH x10^3 (test code = 731-0) 2.07 10*3/uL 1.32-3.29 MONO x10^3 (test code = 742-7) 0.25 10*3/uL 0.33-0.92 L EOS x10^3 (test code = 711-2) 0.25 10*3/uL 0.03-0.39 BASO x10^3 (test code = 704-7) 0.03 10*3/uL 0.01-0.07 Lab Interpretation (test code = 80943-3) [id number][facility] 04:12:43* Test Item Value Reference Range Interpretation Comme nts NA (test code = 6125516535) 137 mmol/L 135-145 K (test code = 2800404160) 3.4 mmol/L 3.5-5.0 L CL (test code = 8606654485) 104 mmol/L 98-108 CO2 TOTAL (test code = 2257251643) 24 mmol/L 23-31 AGAP (test code = 1822128170) 9 2-16 BUN (test code = 1668941043) 2 mg/dL 7-23 L GLUCOSE (test code = 1579313326) 92 mg/dL 70-110 CREATININE (test code = 5881488444) 0.80 mg/dL 0.50-1.04 TOTAL BILI (test code = 3939376443) 0.4 mg/dL 0.1-1.1 CALCIUM (test code = 3097156673) 8.4 mg/dL 8.6-10.6 L T PROTEIN (test code = 5365032886) 6.3 g/dL 6.3-8.2 ALBUMIN (test code = 4612714768) 3.7 g/dL 3.5-5.0 ALK PHOS (test code = 9919149862) 87 U/L 34-122 ALTv (test code = 1742-6) 27 U/L 5-35 AST(SGOT) (test code = 5730713303) 33 U/L 13-40 eGFR (test code = 4545625081) 86.0 mL/min/1.73m2 WESLEY (test code = WESLEY) [...] imaging tests). Lab Interpretation (test code = 45377-1) [facility] (05282)2023-01-12 04:12:43* Test Item Value Reference Range Interpretation Comme nts NA (test code = 1513712315) 137 mmol/L 135-145 K (test code = 5360235984) 3.4 mmol/L 3.5-5.0 L CL (test code = 5606487437) 104 mmol/L 98-108 CO2 TOTAL (test code = 2599705412) 24 mmol/L 23-31 AGAP (test code = 8238096499) 9 2-16 BUN (test code = 3817008716) 2 mg/dL 7-23 L GLUCOSE (test code = 8462286361) 92 mg/dL 70-110 CREATININE (test code = 6637641376) 0.80 mg/dL 0.50-1.04 TOTAL BILI (test code = 9787324401) 0.4 mg/dL 0.1-1.1 CALCIUM (test code = 3712884644) 8.4 mg/dL 8.6-10.6 L T PROTEIN (test code = 2930793316) 6.3 g/dL 6.3-8.2 ALBUMIN (test code = 1209988783) 3.7 g/dL 3.5-5.0 ALK PHOS (test code = 5785285878) 87 U/L 34-122 ALTv (test code = 1742-6) 27 U/L 5-35 AST(SGOT) (test code = 6505835195) 33 U/L 13-40 eGFR (test code = 3193834364) 86.0 mL/min/1.73m2 WESLEY (test code = WESLEY) [...] imaging tests). Lab Interpretation (test code = 76059-6) [facility] 04:07:04 BETA HCG<2.39Non- female and male patients: <5 mIU/mL01/11/2023 11:07 PM [facility] Gestational Age ?Range (mIU/mL) 1-10 ?Weeks ?84-90750839-75 Weeks ?83168-88346476-69 Weeks ?3165-49018790-13 Weeks ?1531-877476 Biotin has been reported to cause a negative bias, interpret results relative to patient's use of biotin. Gestational Age ?Range (mIU/mL) 1-10 ?Weeks ?81-22425164-97 Weeks ?46293-23408258-77 Weeks ?5825-95126055-89 Weeks?1531-278922 Biotin has been reported to cause a negative bias, interpret results relative to patient's use of biotin. Gestational Age ?Range (mIU/mL) 1-10 ?Weeks ?39-58402070-51 Weeks ?99149-55484445-41 Weeks ?8408-38486177-93 Weeks ?1531-391533 Biotin has been reported to cause a negative bias, interpretresults relative to patient's [facility] 04:07:04BETA HCG<2.39Non- female and male patients: <5 mIU/mL01/11/2023 11:07 PM [facility] Gestational Age ?Range (mIU/mL) 1-10 ?Weeks ?86-12916999-20 Weeks ?31140-50146010-15 Weeks ?4684-57117248-79 Weeks ?1531-932349 Biotin has been reported to cause a negative bias, interpret results relative topatient's use of biotin. Gestational Age ?Range (mIU/mL) 1-10 ?Weeks ?95-70594907-31 Weeks ?38504-94135775-79 Weeks ?4935-47960893-58 Weeks?1531-451535 Biotin has been reported to cause a negative bias, interpret results relative to patient's use of biotin. Gestational Age ?Range (mIU/mL) 1-10 ?Weeks ?03-28781590-52 Weeks ?04759-09896171-30 Weeks ?3051-01221089-63 Weeks ?4158-830246 Biotin has been reported to cause a negative bias, interpretresults relative to patient's use of biotin.[facility] 03:22:58* Test Item Value Reference Range Interpretation Comme nts LIPASE (test code = 0159974714) 41 U/L 0-220 Lab Interpretation (test cod e = 87335-6) [facility] 03:22:58* Test Item Value Reference Range Interpretation Comme nts LIPASE (test code = 9355032822) 41 U/L 0-220 Lab Interpretation (test cod e = 25775-1) Normal [facility] [id number] 03:02:00* Test Item Value Reference Range Interpretation Comme nts POCT PREG (test code = 1605) Negative On board controls acceptable with C Line (test code = 3574) Yes POCT PREG LOT # (test code = 3575) [id number] POCT PREG TEST DATE ( test code = 3576) 05/15/2024 Lab Interpretation (test cod e = 17339-1) Normal [facility] [id number] 03:02:00* Test Item Value Reference Range Interpretation Comme nts POCT PREG (test code = 1605) Negative On board controls acceptable with C Line (test code = 3574) Yes POCT PREG LOT # (test code = 3575) [id number] POCT PREG TEST DATE ( test code = 3576) 05/15/2024 Lab Interpretation (test cod e = 54141-3) [facility], [id number] 00:23:34* Test Item Value Reference Range Interpretation Comme nts PREG SERUM (test code = 4962802541) Negative WESLEY (test code = WESLEY) Less than 10 IU/L. ?If low titer or ectopic is suspected, resubmit specimen in 48-72 hours. [facility]. METABOLIC PANEL (74920)2022-07-31 23:58:12* Test Item Value Reference Range Interpretation Comme nts NA (test code = 7408441442) 140 mmol/L 135-145 K (test code = 0219631771) 3.6 mmol/L 3.5-5.0 CL (test code = 4112150345) 106 mmol/L 98-108 CO2 TOTAL (test code = 4461293114) 21 mmol/L 23-31 L AGAP (test code = 7864068425) 13 2-16 BUN (test code = 4524426552) 8 mg/dL 7-23 GLUCOSE (test code = 9952422045) 90 mg/dL 70-110 CREATININE (test code = 2655466512) 0.90 mg/dL 0.50-1.04 TOTAL BILI (test code = 8607323096) 0.5 mg/dL 0.1-1.1 CALCIUM (test code = 4489896099) 9.0 mg/dL 8.6-10.6 T PROTEIN (test code = 3042069243) 7.8 g/dL 6.3-8.2 ALBUMIN (test code = 6772550608) 4.6 g/dL 3.5-5.0 ALK PHOS (test code = 9262808624) 63 U/L 34-122 ALTv (test code = 1742-6) 23 U/L 5-35 AST(SGOT) (test code = 8817086697) 27 U/L 13-40 eGFR (test code = 8844772658) 75.1 mL/min/1.73m2 WESLEY (test code = WESLEY) [...] imaging tests). Lab Interpretation (test code = 38093-6) [facility] 23:57:32* Test Item Value Reference Range Interpretation Comme nts LIPASE (test code = 6824043349) 55 U/L 0-220 Lab Interpretation (test cod e = 53955-2) Normal [facility] WITH [id number] 23:47:31* Test Item Value Reference Range Interpretation Comme nts WBC (test code = 6690-2) 5.64 See_Comment [Automated [employer]] The system which generated this result transmitted reference range: 4.30 - 11.10 10*3/?L. The reference range was not used to interpret this result as normal/abnormal. RBC (test code = 789-8) 4.51 See_Comment [[employer]] The system which generated this result transmitted [...] 32.6 g/dL 31.6-35.1 RDW-SD (test code = 17302-9) 42.5 fL 39.0-49.9 RDW-CV (test code = 788-0) 13.0 % 12.0-15.5 PLT (test code = 777-3) 339 See_Comment [Automated messa ge] The system which generated this result transmitted reference range: 166 - 358 10*3/?L. The reference range was not used to interpret this result as normal/abnormal. MPV (test code = 31426-1) 9.4 fL 9.5-12.9 L NRBC/100 WBC (test code = 3867357374) 0.0 See_Comment [Automated [employer] ssage] The system which generated this result transmitted reference range: 0.0 - 10.0 /100 WBCs. The reference range was not used to interpret this result as normal/abnormal. NRBC x10^3 (test code = 6976968033) See_Comment [Automated messa ge] The system which generated this result transmitted reference range: 10*3/?L. The reference range was not used to interpret this result as normal/abnormal. GRAN MAT (NEUT) % (test code = 770-8) 51.2 % IMM GRAN % (test code = 8053317223) 0.20 % LYMPH % (test code = 736-9) 36.5 % MONO % (test code = 5905-5) 5.7 % EOS % (test code = 713-8) 5.9 % BASO % (test code = 706-2) 0.5 % GRAN MAT x10^3(ANC) (test code = 1284570966) 2.89 10*3/uL 1.88-7.09 IMM GRAN x10^3 (test code = 9505455854) 0.00-0.06 LYMPH x10^3 (test code = 731-0) 2.06 10*3/uL 1.32-3.29 MONO x10^3 (test code = 742-7) 0.32 10*3/uL 0.33-0.92 L EOS x10^3 (test code = 711-2) 0.33 10*3/uL 0.03-0.39 BASO x10^3 (test code = 704-7) 0.03 10*3/uL 0.01-0.07 Lab Interpretation (test code = 39125-5) [facility] [id number] 16:14:38* Test Item Value Reference Range Interpretation Comme nts POCT Molecular Strep (test c ode = 94211-4) Negative Negative Lab Interpretation (test cod e = 31264-3) Normal [facility]. METABOLIC PANEL (79292)2022-05-05 19:35:37* Test Item Value Reference Range Interpretation Comme nts NA (test code = 7833404743) 139 mmol/L 135-145 K (test code = 5955349476) 4.4 mmol/L 3.5-5.0 CL (test code = 9768668199) 104 mmol/L 98-108 CO2 TOTAL (test code = 6717852801) 22 mmol/L 23-31 L AGAP (test code = 1578912747) 2-16 BUN (test code = 2581082072) 11 mg/dL 7-23 GLUCOSE (test code = 9501896193) 95 mg/dL 70-110 CREATININE (test code = 9350551277) 0.71 mg/dL 0.50-1.04 TOTAL BILI (test code = 2789224633) 0.4 mg/dL 0.1-1.1 CALCIUM (test code = 8203151318) 9.1 mg/dL 8.6-10.6 T PROTEIN (test code = 6130050575) 7.9 g/dL 6.3-8.2 ALBUMIN (test code = 4524589422) 4.7 g/dL 3.5-5.0 ALK PHOS (test code = 5516398996) 114 U/L 34-122 ALTv (test code = 1742-6) 21 U/L 5-35 AST(SGOT) (test code = 0324536882) 21 U/L 13-40 eGFR (test code = 4440724274) mL/min/1.73m2 WESLEY (test code = WESLEY) Association [...] imaging tests). Lab Interpretation (test code = 03327-5) Abnormal [facility] WITH [id number] 19:25:37* Test Item Value Reference Range Interpretation Comme nts WBC (test code = 6690-2) See_Comment [[employer]] The system which generated this result transmitted reference range: 4.30 - 11.10 10*3/?L. The reference range was not used to interpret this result as normal/abnormal. RBC (test code = 789-8) See_Comment [[employer]] The system which generated this result transmitted [...] 32.9 g/dL 31.6-35.1 RDW-SD (test code = 57642-1) 41.7 fL 39.0-49.9 RDW-CV (test code = 788-0) 12.7 % 12.0-15.5 PLT (test code = 777-3) See_Comment H [Automated messa ge] The system which generated this result transmitted reference range: 166 - 358 10*3/?L. The reference range was not used to interpret this result as normal/abnormal. MPV (test code = 56923-5) 8.8 fL 9.5-12.9 L NRBC/100 WBC (test code = 3285393402) See_Comment [Automated [employer] ssage] The system which generated this result transmitted reference range: 0.0 - 10.0 /100 WBCs. The reference range was not used to interpret this result as normal/abnormal. NRBC x10^3 (test code = 2036161317) See_Comment [Automated [employer]] The system which generated this result transmitted reference range: 10*3/?L. The reference range was not used to interpret this result as normal/abnormal. GRAN MAT (NEUT) % (test code = 770-8) 56.1 % IMM GRAN % (test code = 2194192281) 0.40 % LYMPH % (test code = 736-9) 29.9 % MONO % (test code = 5905-5) 5.4 % EOS % (test code = 713-8) 7.8 % BASO % (test code = 706-2) 0.4 % GRAN MAT x10^3(ANC) (test code = 4087863177) 3.75 10*3/uL 1.88-7.09 IMM GRAN x10^3 (test code = 6483987115) 0.03 10*3/uL 0.00-0.06 LYMPH x10^3 (test code = 731-0) 2.00 10*3/uL 1.32-3.29 MONO x10^3 (test code = 742-7) 0.36 10*3/uL 0.33-0.92 EOS x10^3 (test code = 711-2) 0.52 10*3/uL 0.03-0.39 H BASO x10^3 (test code = 704-7) 0.03 10*3/uL 0.01-0.07 Lab Interpretation (test code = 50828-1) [id number] 19:00:00* Test Item Value Reference Range Interpretation Comme nts POCT PREG (test code = 1605) negative On board controls acceptable with C Line (test code = 3574) present POCT PREG LOT # (test code = 3575) [id number] POCT PREG TEST DATE ( test code = 3576) 08-11-2023 Lab Interpretation (test cod e = 69090-8) Normal [facility] WITH [id number] 15:21:11* Test Item Value Reference Range Interpretation [...] 33.0 g/dL 31.6-35.1 RDW-SD (test code = 23328-1) 42.6 fL 39.0-49.9 RDW-CV (test code = 788-0) 12.9 % 12.0-15.5 PLT (test code = 777-3) See_Comment H [Automated messa ge] The system which generated this result transmitted reference range: 166 - 358 10*3/?L. The reference range was not used to interpret this result as normal/abnormal. MPV (test code = 61216-8) 9.1 fL 9.5-12.9 L NRBC/100 WBC (test code = 7081188272) See_Comment [Automated me ssage] The system which generated this result transmitted reference range: 0.0 - 10.0 /100 WBCs. The reference range was not used to interpret this result as normal/abnormal. NRBC x10^3 (test code = 1702627846) See_Comment [Automated messa ge] The system which generated this result transmitted reference range: 10*3/?L. The reference range was not used to interpret this result as normal/abnormal. GRAN MAT (NEUT) % (test code = 770-8) 56.8 % IMM GRAN % (test code = 8912694496) 0.30 % LYMPH % (test code = 736-9) 29.5 % MONO % (test code = 5905-5) 4.3 % EOS % (test code = 713-8) 8.3 % BASO % (test code = 706-2) 0.8 % GRAN MAT x10^3(ANC) (test code = 5057889310) 3.57 10*3/uL 1.88-7.09 IMM GRAN x10^3 (test code = 0347663710) 0.00-0.06 LYMPH x10^3 (test code = 731-0) 1.85 10*3/uL 1.32-3.29 MONO x10^3 (test code = 742-7) 0.27 10*3/uL 0.33-0.92 L EOS x10^3 (test code = 711-2) 0.52 10*3/uL 0.03-0.39 H BASO x10^3 (test code = 704-7) 0.05 10*3/uL 0.01-0.07 Lab Interpretation (test code = 27924-3) Abnormal [facility] METABOLIC PANEL (59876)2022-04-26 15:12:13* Test Item Value Reference Range Interpretation Comme nts NA (test code = 4781898188) 141 mmol/L 135-145 K (test code = 4517983476) 3.4 mmol/L 3.5-5.0 L CL (test code = 4938349918) 104 mmol/L 98-108 CO2 TOTAL (test code = 4457069486) 23 mmol/L 23-31 AGAP (test code = 2750825803) 2-16 BUN (test code = 8158789325) 9 mg/dL 7-23 GLUCOSE (test code = 8439771153) 101 mg/dL 70-110 CREATININE (test code = 5070711888) 0.82 mg/dL 0.50-1.04 TOTAL BILI (test code = 0533389655) 0.7 mg/dL 0.1-1.1 CALCIUM (test code = 7121022760) 9.3 mg/dL 8.6-10.6 T PROTEIN (test code = 0281109611) 8.1 g/dL 6.3-8.2 ALBUMIN (test code = 3515080913) 4.7 g/dL 3.5-5.0 ALK PHOS (test code = 9987691877) 108 U/L 34-122 ALTv (test code = 1742-6) 24 U/L 5-35 AST(SGOT) (test code = 3818117440) 49 U/L 13-40 H eGFR (test code = 4426415038) mL/min/1.73m2 WESLEY (test code = WESLEY) Association [...] imaging tests). Lab Interpretation (test code = 10739-6) Abnormal [facility] [id number] 14:45:00* Test Item Value Reference Range Interpretation Comme nts POCT PREG (test code = 1605) negative On board controls acceptable with C Line (test code = 3574) present POCT PREG LOT # (test code = 3575) [id number] POCT PREG TEST DATE ( test code = 3576) 08/11/2023 Lab Interpretation (test cod e = 72307-1) Normal [facility] [id number] 01:22:00* Test Item Value Reference Range Interpretation Comme nts POCT PREG (test code = 1605) Negative On board controls acceptable with C Line (test code = 3574) Present POCT PREG LOT # (test code = 3575) [id number] POCT PREG TEST DATE ( test code = 3576) 08-11-2023 Lab Interpretation (test cod e = 62728-5) Normal [facility] METABOLIC PANEL (NA, K, CL, CO2, GLUCOSE, BUN, CREATININE, CA)2022-04-07 23:01:10* Test Item Value Reference Range Interpretation Comme nts NA (test code = 7147466115) 138 mmol/L 135-145 K (test code = 0685220127) 4.3 mmol/L 3.5-5.0 CL (test code = 0965674688) 107 mmol/L 98-108 CO2 TOTAL (test code = 0932402215) 20 mmol/L 23-31 L AGAP (test code = 3249868279) 2-16 BUN (test code = 0274520184) 9 mg/dL 7-23 GLUCOSE (test code = 2425023933) 204 mg/dL 70-110 H CREATININE (test code = 9300222056) 0.74 mg/dL 0.50-1.04 CALCIUM (test code = 7538837853) 9.1 mg/dL 8.6-10.6 eGFR (test code = 8495965499) mL/min/1.73m2 WESLEY (test code = WESLEY) Association [...] imaging tests). Lab Interpretation (test code = 52697-7) Abnormal [facility] WITH [id number] 22:57:34* Test Item Value Reference Range Interpretation Comme nts WBC (test code = 6690-2) See_Comment [Automated [employer]] The system which generated this result transmitted reference range: 4.30 - 11.10 10*3/?L. The reference range was not used to interpret this result as normal/abnormal. RBC (test code = 789-8) See_Comment [Automated [employer]] The system which generated this result transmitted [...] 33.5 g/dL 31.6-35.1 RDW-SD (test code = 41782-6) 42.9 fL 39.0-49.9 RDW-CV (test code = 788-0) 13.4 % 12.0-15.5 PLT (test code = 777-3) See_Comment H [Automated messa ge] The system which generated this result transmitted reference range: 166 - 358 10*3/?L. The reference range was not used to interpret this result as normal/abnormal. MPV (test code = 74545-6) 8.9 fL 9.5-12.9 L NRBC/100 WBC (test code = 3423233499) See_Comment [Automated me ssage] The system which generated this result transmitted reference range: 0.0 - 10.0 /100 WBCs. The reference range was not used to interpret this result as normal/abnormal. NRBC x10^3 (test code = 4074131196) See_Comment [Automated messa ge] The system which generated this result transmitted reference range: 10*3/?L. The reference range was not used to interpret this result as normal/abnormal. GRAN MAT (NEUT) % (test code = 770-8) 88.7 % IMM GRAN % (test code = 2027928395) 0.70 % LYMPH % (test code = 736-9) 9.4 % MONO % (test code = 5905-5) 0.9 % EOS % (test code = 713-8) 0.1 % BASO % (test code = 706-2) 0.2 % GRAN MAT x10^3(ANC) (test code = 0278641549) 7.81 10*3/uL 1.88-7.09 H IMM GRAN x10^3 (test code = 6744187493) 0.06 10*3/uL 0.00-0.06 LYMPH x10^3 (test code = 731-0) 0.83 10*3/uL 1.32-3.29 L MONO x10^3 (test code = 742-7) 0.08 10*3/uL 0.33-0.92 L EOS x10^3 (test code = 711-2) 0.03-0.39 L BASO x10^3 (test code = 704-7) 0.01-0.07 Lab Interpretation (test code = 06887-3) Abnormal [facility] [id number] 14:07:00* Test Item Value Reference Range Interpretation Comme nts POCT PREG (test code = 1605) negative On board controls acceptable with C Line (test code = 3574) present POCT PREG LOT # (test code = 3575) [id number] POCT PREG TEST DATE ( test code = 3576) 08/11/2023 Lab Interpretation (test cod e = 80523-0) Normal [facility] [id number] 13:52:00* Test Item Value Reference Range Interpretation Comme nts POCT PREG (test code = 1605) negative On board controls acceptable with C Line (test code = 3574) present Lab Interpretation (test cod e = 70814-7) Normal [facility] [id number] 14:59:00* Test Item Value Reference Range Interpretation Comme nts POCT PREG (test code = 1605) negative On board controls acceptable with C Line (test code = 3574) yes POCT PREG LOT # (test code = 3575) [id number] POCT PREG TEST DATE ( test code = 3576) 07/11/2023 Lab Interpretation (test cod e = 30874-9) Normal [facility]. METABOLIC PANEL (21267)2022 17:51:43* Test Item Value Reference Range Interpretation Comme nts NA (test code = 9259946510) 139 mmol/L 135-145 K (test code = 4103257432) 4.1 mmol/L 3.5-5 CL (test code = 1463416752) 104 mmol/L 98-108 CO2 TOTAL (test code = 7026553852) 22 mmol/L 23-31 L AGAP (test code = 6473401700) 2-16 BUN (test code = 4897086508) 7 mg/dL 7-23 GLUCOSE (test code = 6633914901) 114 mg/dL 70-110 H CREATININE (test code = 4548752327) 0.69 mg/dL 0.5-1.04 TOTAL BILI (test code = 7052645171) 0.4 mg/dL 0.1-1.1 CALCIUM (test code = 5980185881) 9.7 mg/dL 8.6-10.6 T PROTEIN (test code = 1031956529) 7.2 g/dL 6.3-8.2 ALBUMIN (test code = 5262468904) 4.6 g/dL 3.5-5 ALK PHOS (test code = 3390182195) 65 U/L 34-122 ALTv (test code = 1742-6) 15 U/L 5-35 AST(SGOT) (test code = 4473288712) 19 U/L 13-40 eGFR (test code = 6912039092) mL/min/1.73m2 WESLEY (test code = WESLEY) Association [...] imaging tests). Lab Interpretation (test code = 23790-1) Abnormal [facility] WITH [id number] 17:40:24* Test Item Value Reference Range Interpretation Comme nts WBC (test code = 6690-2) See_Comment [Automated [employer] ge] The system which generated this result [...] 33.3 g/dL 31.6-35.1 RDW-SD (test code = 35511-5) 43.1 fL 39-49.9 RDW-CV (test code = 788-0) 13.2 % 12-15.5 PLT (test code = 777-3) See_Comment [Automated messa ge] The system which generated this result transmitted reference range: 166 - 358 10*3/?L. The reference range was not used to interpret this result as normal/abnormal. MPV (test code = 46826-2) 9.5 fL 9.5-12.9 NRBC/100 WBC (test code = 7620851865) See_Comment [Automated [employer] ssage] The system which generated this result transmitted reference range: 0.0 - 10.0 /100 WBCs. The reference range was not used to interpret this result as normal/abnormal. NRBC x10^3 (test code = 3949556249) See_Comment [Automated messa ge] The system which generated this result transmitted reference range: 10*3/?L. The reference range was not used to interpret this result as normal/abnormal. GRAN MAT (NEUT) % (test code = 770-8) 57.8 % IMM GRAN % (test code = 6670375772) 0.20 % LYMPH % (test code = 736-9) 30.8 % MONO % (test code = 5905-5) 5.1 % EOS % (test code = 713-8) 5.6 % BASO % (test code = 706-2) 0.5 % GRAN MAT x10^3(ANC) (test code = 1455120346) 3.61 10*3/uL 1.88-7.09 IMM GRAN x10^3 (test code = 6859250169) 0-0.06 LYMPH x10^3 (test code = 731-0) 1.92 10*3/uL 1.32-3.29 MONO x10^3 (test code = 742-7) 0.32 10*3/uL 0.33-0.92 L EOS x10^3 (test code = 711-2) 0.35 10*3/uL 0.03-0.39 BASO x10^3 (test code = 704-7) 0.03 10*3/uL 0.01-0.07 Lab Interpretation (test code = 26583-1) [facility] [id number] 17:27:00* Test Item Value Reference Range Interpretation Comme nts POCT PREG (test code = 1605) negative On board controls acceptable with C Line (test code = 3574) present POCT PREG LOT # (test code = 3575) [id number] POCT PREG TEST DATE ( test code = 357) Lab Interpretation (test cod e = 10071-1) [facility] 12:45:21* Test Item Value Reference Range Interpretation Comme nts LIPASE (test code = 3465008836) 41 U/L 0-220 Lab Interpretation (test cod e = 44338-9) [facility] [id number] 10:57:00* Test Item Value Reference Range Interpretation Comme nts POCT PREG (test code = 1605) Negative On board controls acceptable with C Line (test code = 3574) Present POCT PREG LOT # (test code = 3575) [id number] POCT PREG TEST DATE ( test code = 3576) 03/12/2023 Lab Interpretation (test cod e = 66368-0) Normal [facility] METABOLIC PANEL (NA, K, CL, CO2, GLUCOSE, BUN, CREATININE, CA)2022-01-18 10:56:51* Test Item Value Reference Range Interpretation Comme nts NA (test code = 4572143522) 137 mmol/L 135-145 K (test code = 1851197401) 4.6 mmol/L 3.5-5 Slight hemolysis CL (test code = 5018946611) 108 mmol/L 98-108 CO2 TOTAL (test code = 9024321104) 22 mmol/L 23-31 L AGAP (test code = 2990101148) 2-16 BUN (test code = 2115423382) 11 mg/dL 7-23 Slight hemolysis GLUCOSE (test code = 2206557411) 83 mg/dL 70-110 CREATININE (test code = 0729590003) 0.68 mg/dL 0.5-1.04 CALCIUM (test code = 3102123879) 8.8 mg/dL 8.6-10.6 eGFR (test code = 8350624420) mL/min/1.73m2 WESLEY (test code = WESLEY) Association [...] imaging tests). Lab Interpretation (test code = 61200-5) [facility] (85299) (ALB,T.PRO,BILI T,BU/BC,ALT,AST,ALK PHOS)2022-01-18 10:56:51* Test Item Value Reference Range Interpretation Comme nts TOTAL BILI (test code = 9907544852) 0.6 mg/dL 0.1-1.1 BILI UNCON (test code = 1647351926) 0.1 mg/dL 0.1-1.1 BILI CONJ (test code = 9381657032) 0.0 mg/dL 0-0.3 T PROTEIN (test code = 9127107314) 8.6 g/dL 6.3-8.2 H ALBUMIN (test code = 4745414743) 5.1 g/dL 3.5-5 H ALK PHOS (test code = 9712740273) 79 U/L 34-122 ALTv (test code = 1742-6) 117 U/L 5-35 H AST(SGOT) (test code = 7043171672) 163 U/L 13-40 H Lab Interpretation (test cod e = 46525-7) [facility]normal [facility], [id number] 10:54:25* Test Item Value Reference Range Interpretation Comme nts PREG SERUM (test code = 6521801784) Negative WESLEY (test code = WESLEY) Less than 10 IU/L. ?If low titer or ectopic is suspected, resubmit specimen in 48-72 hours. [facility] WITH [id number] 10:40:49* Test Item Value Reference Range Interpretation [...] 33.6 g/dL 31.6-35.1 RDW-SD (test code = 35118-6) 45.3 fL 39-49.9 RDW-CV (test code = 788-0) 14.5 % 12-15.5 PLT (test code = 777-3) See_Comment [Automated messa ge] The system which generated this result transmitted reference range: 166 - 358 10*3/?L. The reference range was not used to interpret this result as normal/abnormal. MPV (test code = 48748-4) 9.5 fL 9.5-12.9 NRBC/100 WBC (test code = 2628089621) See_Comment [Automated me ssage] The system which generated this result transmitted reference range: 0.0 - 10.0 /100 WBCs. The reference range was not used to interpret this result as normal/abnormal. NRBC x10^3 (test code = 2428771393) See_Comment [Automated messa ge] The system which generated this result transmitted reference range: 10*3/?L. The reference range was not used to interpret this result as normal/abnormal. GRAN MAT (NEUT) % (test code = 770-8) 47.6 % IMM GRAN % (test code = 4323993053) 0.60 % LYMPH % (test code = 736-9) 39.9 % MONO % (test code = 5905-5) 5.9 % EOS % (test code = 713-8) 5.3 % BASO % (test code = 706-2) 0.7 % GRAN MAT x10^3(ANC) (test code = 6105765367) 4.45 10*3/uL 1.88-7.09 IMM GRAN x10^3 (test code = 6777728314) 0.06 10*3/uL 0-0.06 LYMPH x10^3 (test code = 731-0) 3.74 10*3/uL 1.32-3.29 H MONO x10^3 (test code = 742-7) 0.55 10*3/uL 0.33-0.92 EOS x10^3 (test code = 711-2) 0.50 10*3/uL 0.03-0.39 H BASO x10^3 (test code = 704-7) 0.07 10*3/uL 0.01-0.07 Lab Interpretation (test code = 14539-2) Abnormal [facility] [id number] 18:31:00* Test Item Value Reference Range Interpretation Comme nts POCT PREG (test code = 1605) Negative On board controls acceptable with C Line (test code = 3574) Yes POCT PREG LOT # (test code = 3575) POCT PREG TEST DATE ( test code = 3576) [facility] URINALYSIS W/O SPECIFIC [id number] 18:31:00* Test Item Value Reference Range Interpretation [...] [facility] Notes Date/Time Note Provider Source 2024-03-11 [...] N/A 07/21/2019 Surgeon: Prasanna Vargas MD; Location: [facility] Labor and Delivery OR Location ESOPHAGOGASTRODUODENOSCOPY Upper 02/27/2024 Surgeon: Jas Mensah MD; Location: ENDOSCOPY (CS) OR LOCATION FLEXIBLE SIGMOIDOSCOPY (SHX) N/A 02/27/2024 Surgeon: Jas Mensah MD; Location: ENDOSCOPY ([facility]) OR LOCATION TUBAL LIGATION N/A 07/21/2019 Surgeon: Prasanna Vargas MD; Location: [facility] Labor and Delivery OR [...] I agree with resident's note as written. [facility] 2024-02-26 10:25:08 Associated Order(s): CONSULT GASTROENTEROLOGY [...] N/A 07/21/2019 Surgeon: Prasanna Vargas MD; Location: [facility] Labor and Delivery OR Location TUBAL LIGATION N/A 07/21/2019 Surgeon: Prasanna Vargas MD; Location: [facility] Labor and Delivery OR [...] Friends and Family: Not on file Attends [employer]: Not on file Active Member of [...] and flexible sigmoidoscopy tomorrow. JAS MENSAH MD MANUFACTURING MANAGEMENT ASSOCIATE, DIVISION OF GASTROENTEROLOGY AND HEPATOLOGY [facility]. [facility] 2023-01-12 00:12:43 Associated Order(s): CONSULT GENERAL [...] symptomatic cholelithiasis 1.5 months ago at OSH ([place]). Pt states that she has had persistent RUQ pain with nausea and po intolerance along with intermittent chills and vomiting since surgery. Was seen by PCP and instructed to come to [facility] ED for further evaluation. [...] N/A 07/21/2019 Surgeon: Prasanna Vargas MD; Location: [facility] Labor and Delivery OR Location TUBAL LIGATION N/A 07/21/2019 Surgeon: Prasanna Vargas MD; Location: [facility] Labor and Delivery OR [...] skin once every month. 1 mL 3 Kyazwgpahc-Drpnunthqpunw-Ttvz (FIORICET) 50-300-40 mg per capsule Take 1 [...] symptomatic cholelithiasis 1.5 months ago at OSH ([place]). Plan: Admission to [facility] service Consult IR for percutaneous drainage [...] pain, nausea, anorexia since lap pasquale at [facility] on 12/01/22 with noted venous bleeding [...] - Replete hypokalemia Mirella Vergara MD, PhD Loading Unit Tool Setter Trauma, Acute Care Surgery, and Surgical Critical Care In-house Pager: [phone] [facility] - Health History and Physical [...] migraine. She was taken to ED in [place] after syncopal episode and was directed to return to [facility]. Bloody BM 3-4 days ago. Reports had exam for internal and external hemorrhoids in [place] - no hemorrhoids. Tried bentyl, pepcid, famotidine without success. Oral zofran does not help either. States that zofran, phenergan, tigan has not helped completely. Morphine has made it tolerable. Requesting to have IV benadryl to help her headaches. Patient was recently discharged on 03/05 from [place] team, during this admission patient presented with [...] Oral, DAILY REVIEW OF SYSTEMS As per [facility] PHYSICAL EXAMINATION Vitals: 03/10/24 1400 03/10/24 1500 [...] tachycardic Abdomen: soft; diffusely tender greater in VIVIENNE Extremities: no clubbing, cyanosis, or edema LABS/IMAGING: [...] to continue supportive care - Admit to [facility] - IV PPI BID - monitor for [...] note, patient had been admitted twice to [facility] earlier this month for similar symptoms. However, [facility] was capped at the time of admission. Ba Manuel DO Loading Unit Tool Setter | Department of Internal Medicine INTERNAL MEDICINE [facility] 2024-03-04 13:22:03 [facility] ADMIT H&P PCP: PATIENT DOES NOT [...] as diarrhea. Patient was recently admitted to [facility] from 02/21-02/26 for same presentation. Inpatient EGD revealed esophagitis and gastritis with biopsies positive for H. Pylori, bismuth quadruple therapy and PPI BID called in yesterday per GI but patient unable to olive picker Patient reports since discharge, her symptoms have not improved. She states that she requested to be discharged after her son got Kawasaki's and she was able to tolerate her pain. Yesterday, she went to olive picker the bismuth quadruple therapy but the [...] reports going to her local ED in [place] 2 days ago. She reports getting a [...] Per chart review, patient was admitted to [facility] in January 2023 1.5 month after lpa choley for a gallbladder fossa 2.5 x 2.6 x 4.6 cm fluid collection containing small air foci concerning for abscess. Patient underwent IR guided drainage. Since then patient reports multiple visits to [place] ED for similar symptoms. She reports 40 [...] N/A 07/21/2019 Surgeon: Prasanna Vargas MD; Location: [facility] Labor and Delivery OR Location ESOPHAGOGASTRODUODENOSCOPY Upper 02/27/2024 Surgeon: Jas Mensah MD; Location: ENDOSCOPY (CS) OR LOCATION FLEXIBLE SIGMOIDOSCOPY (SHX) N/A 02/27/2024 Surgeon: Jas Mensah MD; Location: ENDOSCOPY ([facility]) OR LOCATION TUBAL LIGATION N/A 07/21/2019 Surgeon: Prasanna Vargas MD; Location: [facility] Labor and Delivery OR [...] pBNP: - Trop I: - OSH records [place], [place] Operative Note 12/01/22 - venous bleeding from GB bed, Quentin (absorbable hemostat powder) and Surgicel placed Author [facility] December 01, 2022 11:26am Note Date/Time December 01, 2022 11:26am [facility] NAME: NATANAEL DYSON ADMITTING: Edgar Lora MD ADMIT DATE:12/01/22 ATTENDING: Edgar Lora MD : 1995 ACCOUNT NO:[id number] PATIENT TYPE:ADM IN LOCATION: [facility] Report Status: Signed Date of Procedure: 12/01/22 Surgeon: Edgar Lora MD Date of Service: 12/01/22 Preop diagnosis: Acute cholecystitis and cholelithiasis Postop diagnosis: Same Procedure performed: Laparoscopic cholecystectomy Surgeon: Edgar Lora MD Machine Puller: Jessica CROOKS Estimated blood loss: Minimal Specimen: [...] patient overnight for observation. - Admit to [facility] for observation - PPI IV BID [...] details. Jose Naik MD, MPH Internal Medicine [facility] 2024-02-26 20:55:24 Endoscopy H & P Age: [age] year old Sex: female ASA Class: II Indication: EGD, Flex Sig - epigastric pain and intractable nausea; diarrhea with occasional blood and Fam h/o crohns Family history of Colon Cancer/Polyps: no Blood thinners: None Previous Endoscopy: None Previous Abdominal Surgeries: Cholecystectomy Tubal ligation Bowel Prep: enema Subjective/Interval history: PM cholecystectomy, chronic anemia, prior breast cancer coming [...] Slow IV Push Q4HPRN 4 mg at 02/26/24 195 [START ON 02/27/2024] pantoprazole (PROTONIX) EC tablet 40 mg 40 mg Oral DAILY polyethylene glycol 3350 powder 17 g 17 g Oral BID 17 g at 02/26/241955 simethicone (GAS RELIEF (SIMETHICONE)) chewable tablet 80 mg 80 mg Oral PC+HS 80 mg at 02/26/24 1746 [START ON 02/27/2024] sodium phosphates (NNQED-JX-BAQ ENEMA) 19-7 gram/118 mL enema 1 Enema [...] complete the procedure, cardiovascular complications such as ID, stroke, arrhythmia, and . Informed consent obtained. Giselle Vance MD PGY-5, Gastroenterology and Hepatology Associated attestation - Jas Mensah MD - 02/27/2024 8:34 AM CDT I have personally seen and examined the patient with Dr. Vance. I agree with assessment and plan. Proceed with EGD and flexible sigmoidoscopy. JAS RODRIGUEZ, MANUFACTURING MANAGEMENT ASSOCIATE, DIVISION OF GASTROENTEROLOGY AND HEPATOLOGY. [facility]. GASTROENTEROLOGY [facility] 2024-02-22 14:40:02 MEDICINE Aline ROSE H&P PCP: PATIENT DOES NOT HAVE [...] reports going to her local ED in [place] 2 days ago. She reports getting a [...] Per chart review, patient was admitted to [facility] in January 2023 1.5 month after lpa choley for a gallbladder fossa 2.5 x 2.6 x 4.6 cm fluid collection containing small air foci concerning for abscess. Patient underwent IR guided drainage. Since then patient reports multiple visits to [place] ED for similar symptoms. She reports 40 [...] taking: Reported on 02/22/2024) 1 mL 3 Pwqtmrpnxi-Wijmxxauxtlex-Qnqu (FIORICET) 50-300-40 mg per capsule Take 1 [...] 0 SOCIAL HISTORY Living situation: [place] and child Tobacco use: none Alcohol [...] No focal deficits OSH records OSH records [place], [place] Operative Note 12/01/22 - venous bleeding from GB bed, Quentin (absorbable hemostat powder) and Surgicel placed [facility] December 01, 2022 11:26am Note Date/Time December 01, 2022 11:26am [facility] NAME: NATANAEL DYSON ADMITTING: Edgar Lora MD ADMIT DATE:12/01/22 ATTENDING: Edgar Lora MD : 1995 ACCOUNT NO:[id number] PATIENT TYPE:ADM IN LOCATION: [facility] Report Status: Signed Date of Procedure: 12/01/22 Surgeon: Edgar Lora MD Date of Service: 12/01/22 Preop diagnosis: Acute cholecystitis and cholelithiasis Postop diagnosis: Same Procedure performed: Laparoscopic cholecystectomy Surgeon: Edgar Lora MD Machine Puller: Jessica CROOKS Estimated blood loss: Minimal Specimen: [...] see the resident's note for additional details. [facility] 2023-01-12 01:05:04 01/12/23 1:05 AM Please refer to consult note written by Rodolfo Riggins DO on 01/12/23 for complete H&P. Rodolfo Riggins DO PGY-2 Surgery Resident Associated attestation - Mirella Vergara MD - 01/12/2023 1:47 AM CDT Agree [facility]
[2024-06-21] MEDS ORDERED: ONDANSETRON 4 MG/2 ML VIAL ONE (07:00)
[2024-06-21] MEDS ORDERED: MORPHINE 4 MG/ML SYR ONE (07:00)
[2024-06-21] MEDS ORDERED: FAMOTIDINE 20 MG/2 ML VIAL IV ONE (07:00)
[2024-06-21] MEDS ORDERED: DIPHENHYDRAMINE 50 MG/ML VIAL ONE (07:12)
[2024-06-21] MEDS ORDERED: NA CHLORIDE 0.9% 1,000 ML ONE (07:13)
[2024-06-21 07:15] LABS: Absolute Eosinophils 0.4 K/uL (0-0.5); Absolute Monocytes 0.3 K/uL (0.1-1.3); Absolute Neutrophil 3.1 K/uL (1.8-8.0); Basophils % 0.8 % (0-1.3); Eosinophils % 6.3 % (0-4.4); Hematocrit 43.1 % (36.0-45.0); Hemoglobin 14.4 g/dL (12.0-15.0); MCH 29.3 pg (27.0-35.0); MCHC 33.5 g/dL (32.0-36.0); MCV 87.4 fL (80-100); MPV 7.7 fL (7.6-11.3); Monocytes % 4.8 % (3.3-12.3); Neutrophils % 54.1 % (41.7-73.7); Platelets 304 thou/uL (152-406); RBC Red Blood Cell Count 4.93 M/uL (3.86-4.86); Red Cell Distribution Width 13.5 % (12.1-15.2)
[2024-06-21 07:32] LABS: ALT/SGPT 18 U/L (13-56); AST/SGOT 12 U/L (15-37); Albumin 3.9 g/dL (3.4-5.0); Alkaline Phosphatase 69 U/L (45-117); Anion Gap 9.5 mEq/L (5.0-15.0); BUN Blood Urea Nitrogen 11 mg/dL (7-18); Bicarbonate 22 mEq/L (21-32); Bilirubin Total 0.7 mg/dL (0.2-1.0); Globulin 3.8 g/dL (2.3-3.5); Glomerular Filtration Rate 98 ml/min (=/>90); Glucose Level 108 mg/dL (74-106); Potassium 3.5 mEq/L (3.5-5.1); Protein, Total 7.7 g/dL (6.4-8.2); Sodium Level 138 mEq/L (136-145)
[2024-06-21 07:33] LABS: Troponin High Sensitivity < 3.0 pg/mL (<58.9)
--- NOTE | 2024-06-21 07:56 | RAD REPORT ---
EXAMINATION: ONE VIEW CHEST XR CLINICAL INDICATION: CHEST PAIN TECHNIQUE: Frontal chest projection is submitted. Examination is limited by patient positioning and t echnique. COMPARISON: 03/09/2024 FINDINGS: The lungs are well inflated and clear. The heart is normal in size. No displaced fractures identified . IMPRESSION: No acute intrathoracic abnormalities.
--- NOTE | 2024-06-21 08:06 | RAD REPORT ---
EXAM: CT CHEST, ABDOMEN AND PELVIS WITHOUT CONTRAST CLINICAL INDICATION: Chest pain;Pain TECHNIQUE: CT chest, abdomen and pelvis was performed without contrast, as per department protocol. A xial, sagittal and coronal reconstructions were obtained. One or more of the following dose reduction techniques were used: Automated exposure control, adjustment of the mA and/or kV according to patient size, and/or iterative reconstruction. Unless otherwise specified, incidental findings do not require dedicated imaging follow-up. Examination is limited by the lack of intravenous contrast material. COMPARISON: 07/11/2023, 12/05/2022 FINDINGS: LUNGS: No evidence of airspace or interstitial process. No nodules. PLEURA: No pleural effusion. No pneumothorax. MEDIASTINUM AND LYMPH NODES: No mediastinal mass or fluid collection. Normal size mediastinal, hilar, and axillary lymph nodes. OSSEOUS STRUCTURES AND CHEST WALL: Intact. LIVER: Normal in size and contour. No focal lesion or biliary dilatation. Cholecystectomy clips. PANCREAS: No mass, ductal dilation, or brayan-pancreatic fluid. SPLEEN: Normal size. No focal lesion. ADRENALS: Normal; no mass. KIDNEYS: Small calculi are present in the right kidney, largest superiorly measuring 3 mm. No hydrone phrosis. No left-sided stone or hydronephrosis. URINARY BLADDER: Normal contour. GASTROINTESTINAL TRACT: No bowel obstruction, free air, significant free fluid or abscess. Prominen t rectosigmoid stool. APPENDIX: Normal appendix. LYMPH NODES: No lymphadenopathy. MUSCULOSKELETAL: No acute or suspicious osseous abnormality. OTHER: Small fat-containing umbilical hernia. IMPRESSION: No acute or significant abnormalities seen in the chest, abdomen or pelvis. Right rectosigmoid stool. 3 mm stone right kidney without hydronephrosis.
[2024-06-21 08:14] LABS: Specific Gravity 1.015 (1.005-1.030)
[2024-06-21 08:17] LABS: Specific Gravity 1.015 (1.005-1.030); Urine Bacteria None Seen /HPF (<20); Urine Bilirubin NEGATIVE (Negative); Urine Blood 1+ (Negative); Urine Clarity Extremely Turbid (Clear); Urine Color Light-Yellow (Yellow); Urine Culture Reflex Order NOT NEEDED; Urine Glucose NEGATIVE (Negative); Urine Ketones NEGATIVE (Negative); Urine Microscopic Reflex YN ORDER UMIC; Urine Mucus 1+ /HPF (None Seen); Urine Nitrite NEGATIVE (Negative); Urine Protein NEGATIVE (Negative); Urine Urobilinogen Normal (Normal); Urine WBC <5 /HPF (<5); Urine Yeast (Budding) Trace /HPF (None Seen)
--- NOTE | 2024-06-21 08:27 | EDPHYS ---
Physician Documentation [facility] Name: Natanael Dyson Age: 29 yrs Sex: Female : 1995 Arrival Date: 06/21/2024 Time: 06:41 Bed 5 Private MD: ED Physician Harjit Samson HPI: 06/21 06:58 This 29 yrs old Female presents to ER via Ambulatory with complaints of rudolph Abdominal Pain, Fall Injury. 06:58 Details of fall: The patient fell from an upright position, while walking. Onset: The rudolph symptoms/episode began/occurred 3 day(s) ago. Associated injuries: The patient sustained no obvious injury. Historical: - Allergies: 06:54 Compazine; br2 06:54 Iodine; br2 06:54 Haldol; br2 06:54 Morphine; br2 06:54 NSAIDS NON STEROIDAL ANTI INFLAMMATORY DRUG; br2 06:54 Reglan; br2 06:54 Toradol; br2 - Immunization history:: Adult Immunizations up to date. - Infectious Disease History:: Denies. - Social history:: Smoking status: Patient denies any tobacco usage or history of. ROS: 06:59 Constitutional: Negative for fever, chills, and weight loss, Eyes: Negative for injury, rudolph pain, redness, and discharge, ENT: Negative for injury, pain, and discharge, Neck: Negative for injury, pain, and swelling, Abdomen/GI: Negative for abdominal pain, nausea, vomiting, diarrhea, and constipation, Back: Negative for injury and pain, : Negative for injury, bleeding, discharge, and swelling, MS/Extremity: Negative for injury and deformity, Skin: Negative for injury, rash, and discoloration, Neuro: Negative for headache, weakness, numbness, tingling, and seizure, Psych: Negative for depression, anxiety, suicide ideation, homicidal ideation, and hallucinations, Allergy/Immunology: Negative for hives, rash, and allergies, Endocrine: Negative for neck swelling, polydipsia, polyuria, polyphagia, and marked weight changes, Hematologic/Lymphatic: Negative for swollen nodes, abnormal bleeding, and unusual bruising, 06:59 Cardiovascular: Positive for chest pain, 06:59 Respiratory: Positive for pleurisy, 06:59 Abdomen/GI: Positive for abdominal pain, of the left upper quadrant, Exam: 06:59 Constitutional: This is a well developed, well nourished patient who is awake, alert, rudolph and in no acute distress. Head/Face: Normocephalic, atraumatic. Eyes: Pupils equal round and reactive to light, extra-ocular motions intact. Lids and lashes normal. Conjunctiva and sclera are non-icteric and not injected. Cornea within normal limits. Periorbital areas with no swelling, redness, or edema. ENT: Nares patent. No nasal discharge, no septal abnormalities noted. Tympanic membranes are normal and external auditory canals are clear. Oropharynx with no redness, swelling, or masses, exudates, or evidence of obstruction, uvula midline. Mucous membranes moist. Neck: Trachea midline, no thyromegaly or masses palpated, and no cervical lymphadenopathy. Supple, full range of motion without nuchal rigidity, or vertebral point tenderness. No Meningismus. Chest/axilla: Normal chest wall appearance and motion. Nontender with no deformity. No lesions are appreciated. Cardiovascular: Regular rate and rhythm with a normal S1 and S2. No gallops, murmurs, or rubs. Normal PMI, no JVD. No pulse deficits. Respiratory: Lungs have equal breath sounds bilaterally, clear to auscultation and percussion. No rales, rhonchi or wheezes noted. No increased work of breathing, no retractions or nasal flaring. Back: No spinal tenderness. No costovertebral tenderness. Full range of motion. Skin: Warm, dry with normal turgor. Normal color with no rashes, no lesions, and no evidence of cellulitis. MS/ Extremity: Pulses equal, no cyanosis. Neurovascular intact. Full, normal range of motion., bilateral aka Neuro: Awake and alert, GCS 15, oriented to person, place, time, and situation. Cranial nerves II-XII grossly intact. Motor strength 5/5 in all extremities. Sensory grossly intact. Cerebellar exam normal. Normal gait. Psych: Awake, alert, with orientation to person, place and time. Behavior, mood, and affect are within normal limits. 06:59 Abdomen/GI: Inspection: abdomen appears normal, Bowel sounds: normal, Palpation: mild abdominal tenderness, in the left upper quadrant, Liver: no appreciated palpable abnormalities, Hernia: not appreciated, 06:59 Musculoskeletal/extremity: ROM: no acute changes, intact in all extremities, full active range of motion, full passive range of motion, Circulation is intact in all extremities. Sensation intact. Compartment Syndrome exam of affected extremity: is normal. Joints: All joints appear normal with full range of motion. Weight bearing: able to fully bear weight, DVT Exam: No signs of deep vein thrombosis. no pain, no swelling, no tenderness, negative Homans' sign noted on exam, no appreciated bluish discoloration, no erythema, no increased warmth, 07:21 ECG was reviewed by the Attending Physician. [facility] Vital Signs: 06:51 BP 136 / 92; Pulse 139; Resp 18 S; Temp 97.9(O); Pulse Ox 100% on R/A; Weight 49.9 kg; br2 Height 5 ft. 1 in. ; Pain 10/10; 07:19 BP 132 / 77; Pulse 115; Resp 18; Pulse Ox 100% on R/A; iw 06:51 Body Mass Index 20.78 (49.90 kg, 154.94 cm) br2 06:51 Pain Scale: Adult br2 MDM: 06:50 Medical Screening Exam initiated [facility] 07:01 Differential diagnosis: abnormal EKG, acute myocardial infarction, acute pericarditis, rudolph anxiety, coronary artery disease chest wall pain, cholecystitis, costochondritis, esophagitis, hiatal hernia, pancreatitis, peptic ulcer disease, pericarditis, pneumonia, pulmonary embolus, stable angina, thoracic aortic disection, unstable angina, appendicitis, bowel obstruction, Cholelithiasis, gastritis, non-specific abd pain, pancreatitis, Peptic Ulcer Disease, Perf. Duodenal Ulcer, Peritonitis, Pelvic Inflammatory Disease, Pyelonephritis, urinary tract infection. HEART Score: History: Slightly Suspicious (0), ECG: Normal (0), Age: < or = 45 years (0), Risk Factors: No Risk Factors Known (0), Troponin: < or = 1 x Normal Limit (0). Differential diagnosis: contusion, fracture, multiple trauma. ALBERT Risk Score: TOTAL SCORE = 0. Data reviewed: vital signs, nurses notes, lab test result(s), EKG, radiologic studies, CT scan, plain films. Consideration of Admission/Observation Escalation of care including admission/observation considered. I considered the following discharge prescriptions or medication management in the emergency department Medications were administered in the Emergency Department. See MAR. Test considered but Not performed: Ultrasound no abd usg. 08:26 Counseling: I had a detailed discussion with the patient and/or guardian regarding the rn historical points, exam findings, and any diagnostic results supporting the discharge/admit diagnosis, lab results, radiology results, the need for outpatient follow up, to return to the emergency department if symptoms worsen or persist or if there are any questions or concerns that arise at home. Response to treatment: the patient's symptoms have markedly improved after treatment, and as a result, I will discharge patient. Special discussion: Based on the patient's Hx, exam, and Dx evaluation, there is no indication for emergent surgery or inpatient Tx. It is understood by the patient/guardian that if the Sx's persist or worsen they need to return immediately for re-evaluation. I discussed with the patient/guardian in detail that at this point there is no indication for admission to the hospital. It is understood, however, that if the symptoms persist or worsen the patient needs to return immediately for re-evaluation. 06/21 06:55 Order name: CBC with Diff; Complete Time: 08: [facility] 06/21 06:55 Order name: Comprehensive Metabolic Panel; Complete Time: 08: [facility] 06/21 06:55 Order name: Troponin High Sensitivity; Complete Time: 08: [facility] 06/21 06:55 Order name: Urinalysis w/ reflexes; Complete Time: 08:17 [facility] 06/21 06:55 Order name: PREGU; Complete Time: 08:17 [facility] 06/21 06:58 Order name: Lipase; Complete Time: 08:07 [facility] 06/21 06:55 Order name: Chest Single View XRAY; Complete Time: 08: [facility] 06/21 06:58 Order name: CT Chest Abdomen Pelvis W/O Contrast; Complete Time: 08: [facility] 06/21 06:55 Order name: EKG; Complete Time: 06:55 [facility] 06/21 06:55 Order name: EKG - Nurse/Tech; Complete Time: 07:17 [facility] EC:21 Rate is 112 beats/min. Rhythm is regular. QRS [place] is Normal. MI interval is normal. rudolph QRS interval is normal. QT interval is normal. No Q waves. T waves are Normal. No ST changes noted. Clinical impression: Sinus tachycardia and No evidence of ischemia. Interpreted by me. Reviewed by me. Administered Medications: 07:16 Drug: Ondansetron IVP 4 mg IVP once; over 2 minutes Route: IVP; Site: left hand; ph 08:15 Follow up: Response: No adverse reaction iw 07:16 Drug: Famotidine IVP 20 mg IVP once; dilute with 10 mL 0.9% NaCl; give over 2 minutes ph Route: IVP; Site: left hand; 08:15 Follow up: Response: No adverse reaction iw 07:17 Drug: morphine IVP or IV 4 mg IVP once over 4 mins Route: IVP; Infused Over: 4 mins; ph Site: left hand; 08:00 Follow up: Response: No adverse reaction iw 07:17 Drug: NS 0.9% IV 1000 ml IV at 1000 ml once; to be given as a bolus over 60 minutes ph Route: IV; Rate: 1000 ml; Site: left hand; 08:40 Follow up: IV Status: Order to discontinue infusion iw 07:45 Drug: diphenhydrAMINE IVP 25 mg IVP once Route: IVP; Site: left hand; ph 08:20 Follow up: Response: No adverse reaction iw 08:30 Drug: fentaNYL (PF) IVP 25 mcg IVP once Route: IVP; Site: left hand; iw 08:40 Follow up: Response: No adverse reaction iw Disposition Summary: 06/21/24 08:27 Discharge Ordered Notes: Location: Home rn Problem: new rn Symptoms: have improved rn Condition: Stable rn Diagnosis - Abdominal pain, unspecified rn Followup: rn - With: Private Physician - When: As needed - Reason: Recheck today's complaints, Re-evaluation by your physician Discharge Instructions: - Discharge Summary Sheet rn - Abdominal Pain, Adult rn Forms: - Medication Reconciliation Form 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 EDMS EDMS 07:14 06:55 D-DIMER+COAG.LAB.BRZ ordered. EDMS EDMS
--- NOTE | 2024-06-21 08:27 | ER ---
Nurse's Notes [facility] Name: Natanael Dyson Age: 29 yrs Sex: Female : 1995 Arrival Date: 06/21/2024 Time: 06:41 Bed 5 Private MD: Diagnosis: Abdominal pain, unspecified Presentation: 06/21 06:51 Chief complaint: Patient states: C/O LLQ PAIN AND RADIATES TO LEFT FLANK NAUSEA, br2 DIARRHEA... FOR THE LAST 3 DAYS. PT DENIES VOMITING. Coronavirus screen: Client denies travel out of the [place] in the last 14 days. Ebola Screen: Patient denies exposure to infectious person. Initial Sepsis Screen: Does the patient meet any 2 criteria? No. Patient's initial sepsis screen is negative. Does the patient have a suspected source of infection? No. Patient's initial sepsis screen is negative. Risk Assessment: Do you want to hurt yourself or someone else? Patient reports no desire to harm self or others. Onset of symptoms was June 18, 2024. 06:51 Method Of Arrival: Ambulatory br2 06:51 Acuity: THIERNO 3 br2 Historical: - Allergies: 06:54 Compazine; br2 06:54 Iodine; br2 06:54 Haldol; br2 06:54 Morphine; br2 06:54 NSAIDS NON STEROIDAL ANTI INFLAMMATORY DRUG; br2 06:54 Reglan; br2 06:54 Toradol; br2 - Immunization history:: Adult Immunizations up to date. - Infectious Disease History:: Denies. - Social history:: Smoking status: Patient denies any tobacco usage or history of. Screenin:08 [facility] ED Fall Risk Assessment (Adult) History of falling in the last 3 months, iw including since admission No falls in past 3 months (0 pts) Confusion or Disorientation Yes (5 pts) Intoxicated or Sedated No (0 pts) Impaired Gait No (0 pts) Mobility Assist Device Used No (0 pt) Altered Elimination No (0 pt) Score/Fall Risk Level 0 - 2 = Low Risk Oriented to surroundings, Maintained a safe environment. Abuse screen: Denies threats or abuse. Nutritional screening: No deficits noted. Tuberculosis screening: No symptoms or risk factors identified. Assessment: 07:07 General: Appears in no apparent distress. Behavior is calm, cooperative. Pain: iw Complains of pain in left upper quadrant Pain currently is 9 out of 10 on a pain scale. Quality of pain is described as sharp, stabbing, Pain began 2-3 days ago. Is continuous. Neuro: Level of Consciousness is awake, alert, obeys commands, Oriented to person, place, time, situation, Moves all extremities. Full function. Cardiovascular: Patient's skin is warm and dry. Respiratory: Respiratory effort is even, unlabored, Respiratory pattern is regular. GI: Abdomen is flat, non-distended, Abd is soft X 4 quads Reports upper abdominal pain, diarrhea. Derm: Skin is intact, is healthy with good turgor. Musculoskeletal: Range of motion: intact in all extremities. 07:45 Reassessment: Pt c/o itching after IV medications, ERP notified, see MAR. ph Vital Signs: 06:51 BP 136 / 92; Pulse 139; Resp 18 S; Temp 97.9(O); Pulse Ox 100% on R/A; Weight 49.9 kg; br2 Height 5 ft. 1 in. ; Pain 10/10; 07:19 BP 132 / 77; Pulse 115; Resp 18; Pulse Ox 100% on R/A; iw 06:51 Body Mass Index 20.78 (49.90 kg, 154.94 cm) br2 06:51 Pain Scale: Adult br2 ED Course: 06:43 Patient arrived in ED. [email or web address] 06:50 Justin Estrella MD is Attending Physician. rudolph 06:54 Triage completed. br2 07:08 Patient has correct armband on for positive identification. Provided Education on: lab iw draw. Pulse ox on. NIBP on. 07:08 Arm band placed on. iw 07:09 Initial lab(s) drawn, by me, sent to lab. Inserted saline lock: 24 gauge in left hand, iw using aseptic technique. Blood collected. Flushed with 10 mL NS. 07:16 Viktoriya Jaramillo RN is Primary Nurse. ph 07:17 EKG done, by ED staff, reviewed by Justin Estrella MD. ph 07:19 Primary Nurse role handed off by Viktoriya Jaramillo RN iw 07:19 Vania Loo RN is Primary Nurse. iw 07:37 Attending Physician role handed off by Justin Estrella MD rn 07:37 Harjit Samson MD is Attending Physician. rn 07:52 Chest Single View XRAY In Process Unspecified. EDMS 07:59 CT Chest Abdomen Pelvis W/O Contrast In Process Unspecified. EDMS 08:39 No provider procedures requiring assistance completed. IV discontinued, intact, iw bleeding controlled, No redness/swelling at site. Pressure dressing applied. Administered Medications: 07:16 Drug: Ondansetron IVP 4 mg IVP once; over 2 minutes Route: IVP; Site: left hand; ph 08:15 Follow up: Response: No adverse reaction iw 07:16 Drug: Famotidine IVP 20 mg IVP once; dilute with 10 mL 0.9% NaCl; give over 2 minutes ph Route: IVP; Site: left hand; 08:15 Follow up: Response: No adverse reaction iw 07:17 Drug: morphine IVP or IV 4 mg IVP once over 4 mins Route: IVP; Infused Over: 4 mins; ph Site: left hand; 08:00 Follow up: Response: No adverse reaction iw 07:17 Drug: NS 0.9% IV 1000 ml IV at 1000 ml once; to be given as a bolus over 60 minutes ph Route: IV; Rate: 1000 ml; Site: left hand; 08:40 Follow up: IV Status: Order to discontinue infusion iw 07:45 Drug: diphenhydrAMINE IVP 25 mg IVP once Route: IVP; Site: left hand; ph 08:20 Follow up: Response: No adverse reaction iw 08:30 Drug: fentaNYL (PF) IVP 25 mcg IVP once Route: IVP; Site: left hand; iw 08:40 Follow up: Response: No adverse reaction iw Medication: 07:08 VIS not applicable for this client. iw Outcome: 08:27 Discharge ordered by . rn 08:39 Discharged to home ambulatory, iw 08:39 Condition: good 08:39 Discharge instructions given to patient, Instructed on discharge instructions, follow up and referral plans. Demonstrated understanding of instructions, follow-up care, 08:39 Patient left the ED. iw Signatures: Dispatcher [employer] EDMS Justin Estrella MD MD cha Williams, Irene RN RN iw Harjit Samson MD MD rn Hall, Patricia, RN RN Gisela Trujillo [email or web address] Sabine Arguelles RN RN br2 Corrections: (The following items were deleted from the chart) 08:01 08:01 diphenhydrAMINE IVP 25 mg IVP in left hand ph ph
[2024-06-21] MEDS ORDERED: FENTANYL CITR 100 MCG/2 ML ONE (08:29)
[2024-06-21 08:44] VITALS: TEMP 97.9; O2SAT 100
[2024-06-21 08:45] VITALS: BP 132/77
--- NOTE | 2024-06-23 12:48 | EKG ---
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
== END 2024-06-21 08:39 | disposition home or self-care (01) ==
LOC: ER 06:41
DX: R10.12 Left upper quadrant pain (principal); W18.30XA Fall on same level, unspecified, initial encounter
CPT/HCPCS: 96361; 93005; 85025; 81001; 81025; 84484; 83690; 80053; 71250; 74176; 71045; 96375; 96374; 99284; J1200; J3010; J2405; J7030

== ENCOUNTER 2024-06-27 07:32 | Emergency (ER) | payer OTHER ==
--- OUTSIDE RECORDS SUMMARY | 2024-06-27 07:48 | XMS REPORT | Continuity of Care Document ---
Author Name Unknown Address [address] [facility] [place] [address] [facility] Address [address] [facility] [place] [address] Care Team Providers Care Tank Calibrator Name Role Phone Jeremy Greene MD Primary Care Physician [phone] Palak Marrufo LVN Attending Clinician UnavailANAMARIA Jules Attending Clinician Unavailable ANAMARIA GONZALES Attending Clinician Unavailable Anamaria Gonzales MD Attending Clinician [phone] ROSENDO LEVY Attending Clinician Unavailable ROSENDO LEVY Attending Clinician Unavailable Rosendo Levy MD Attending Clinician +[phone] Doctor Unassigned, Amber Attending Clinician U navailARAM Fernández Attending Clinician Unavailable Aram Parada MD Attending Clinician +[phone] MAGGIE HAMILTON Attending Clinician Unavailab MAGGIE Luna Attending Clinician Unavailab lisandro Garvin NP, Olamide Mosqueda Attending Clinician + [phone] Maggie Hamilton DO Attending Clinician +[phone] TAJ DE PAZ Attending Clinician UnavailTAJ Lewis Attending Clinician UnavailAlfredo Rhoades MD Attending Clinician + [phone] Ba Manuel DO Attending Clinician +[phone] Jose Mandujano MD Attending Clinician +[phone] Lobo Gil MD Attending Clinician + [phone] Taj De Paz MD Attending Clinician + [phone] Odell EFRAÍN, Marlys Attending Clinician +[phone] JOSE MANDUJANO Attending Clinician Unavailable JOSE MANDUJANO Attending Clinician Unavailable Wanda FELIX, Jesus Attending Clinician [phone] Jas Buenrostro MD Attending Clinician +[phone] Rajiv GANNON, Giselle Attending Clinician + [phone] Dexter CURRIE, Tc A Attending Clinician Unavail able HANY LEE Attending Clinician Unavailable Colin Jones DO Attending Clinician Hany Lee MD Attending Clinician [phone] Shanell Mata MD, Peter Attending Clinician +[phone] Naty Buenrostro DO Attending Clinician +[phone] ROLDAN WALKER Attending Clinician Unavailable Odell LVN, Marlys Attending Clinician +[phone] TOD AGUILAR Attending Clinician Unavailab Prasanna Styles MD Attending Clinician +[phone] CHILO Attending Clinician Unavailable KUN STEELE Attending Clinician Unavailable Miguel Ángel Siddiqui DO Attending Clinician +[phone] Mirella Vergara MD Attending Clinician +[phone] Kun Steele MD Attending Clinician +[phone] PRASANNA VARGAS Attending Clinician Unavailable MANJU NEWELL Attending Clinician UnavailOc Morse DO Attending Clinician +[phone] Manju Giraldo Attending Clinician + [phone] JEREMY GREENE Attending Clinician Unavailable JEREMY GREENE Attending Clinician Unavailable CA MARTINEZ Attending Clinician Unavailable REJI GARCIA Attending Clinician Unavailable Denise FELIX, Roldan Attending Clinician +[phone] DESIREE FINNEY Attending Clinician Bridget jesse Serra MD, Rad Cuello Attending Clinician + [phone] KASSANDRA PUGH Attending Clinician Unavailable LISET, CYNISE Attending Clinician Unavailable Liset FAMILY READINESS SUPPORT ASSISTANT, Cynise Attending Clinician [phone] Doctor Unassigned, Amber Attending Clinician U BEBA Garcia Attending Clinician Unavailab lisandro Natasha FAMILY READINESS SUPPORT ASSISTANT, Beba Farmer Attending Clinician + [phone] Unknown, Attending Attending Clinician Unavailab le OMAGHOMI, OMAYEMI Attending Clinician Unavailabl e Omaghomi FAMILY READINESS SUPPORT ASSISTANT, Omayemi Attending Clinician +[phone] BENNETT MILLER Attending Clinician Unavailable KARON NORTON Attending Clinician Unavailable Norton FAMILY READINESS SUPPORT ASSISTANT, Karon Attending Clinician + [phone] OC BRIDGES Attending Clinician Unavailable Darrion Armstrong MD Attending Clinician +[phone] OLAMIDE GARVIN Attending Clinician Unavailable Onesimo POSADAS, Olamide Mosqueda Attending Clinician +[phone] KELLIE PIPER Attending Clinician Unavailable Kellie Piper MD Attending Clinician + [phone] Radha FELIX, Reji Attending Clinician +[phone] LYDIA COLMENARES Attending Clinician Unavailab Lydia Guerrero DO Attending Clinician +[phone] ANGELICA VIVEROS Attending Clinician Unavailable Felice HENDRICKS, Angelica Attending Clinician + [phone] DARRION ARMSTRONG Attending Clinician Unavail able DARRION ARMSTRONG Attending Clinician Unavail able Juan HENDRICKS, Ca Attending Clinician [phone] Kendal Zamudio LVN Attending Clinician Kate Valencia MD, Santiago Chen Attending Clinician +[phone] Martin PEÑAP, Ross Yaens Attending Clinician Unava CRICKET Bryant Attending Clinician Unavail able [facility] Attending Clinician Un available Willie Medrano MD Attending Clinician +[phone] WILLIE MEDRANO Attending Clinician Unavailable FLACO BOYD Attending Clinician Unavailravindra Kennedy MD, Juan Brownlee Attending Clinician +[phone] MAURA COX Attending Clinician UnavailAmber HENDRICKS, Larry Yanes Attending Clinician +[phone] Maura Cox MD Attending Clinician +[phone] HUMBERTO OCHOA Attending Clinician Unavailable Humberto Ochoa MD Attending Clinician +[phone] TETO CARNES Attending Clinician Unavailable Teto Carnes PA-C Attending Clinician +[phone] SANTIAGO VALENCIA Attending Clinician UnavailROMULO Thomas Attending Clinician Kate Taylor [facility], Cricket Lopez Attending Clinician + Kaycee MÉNDEZ Attending Clinician Unavailable Kaycee Soares Attending Clinician +[phone] Leslie Santacruz RN Attending Clinician Unavailable Flaco Katz Attending Clinician +[phone] DESIREE MOHR Attending Clinician Unavailravindra Flynn, Filippo [facility] Attending Clinician Unavailable Melia Rodriguez MA Attending Clinician Unavaila Desiree Klein MD Attending Clinician +[phone] DANIA PENNINGTON Attending Clinician UnavailTaj De Santiago MD Attending Clinician + [phone] Harsh Charles DO Attending Clinician +[phone] Daina Pennington MD Attending Clinician +[phone] Hallie Wilkinson RN Attending Clinician UnavailAdán Perez Attending Clinician +[phone] ADÁN KIM Attending Clinician Unavailable Lab, Ang - Db Attending Clinician Unavailable PETRA RENO Attending Clinician Unavailable Juan Diaz MD Attending Clinician +[phone] JUAN DIAZ Attending Clinician Unavailable CLAUDETTE EVANS Attending Clinician UnavailSkylar Gudino Attending Clinician +[phone] SKYLAR GROVES Attending Clinician Unavailable Claudette Evans MD Attending Clinician [phone] JE ARANA Attending Clinician Unavailable Only, Filippo Db Test Attending Clinician UnavailThony Cook Attending Clinician +[phone] THONY JOHNSON Attending Clinician Unavailable SCOTT GILBERT Attending Clinician Unavailable PINO HOFF Attending Clinician Unavailable ADITYA MEEKS Attending Clinician Unavaila ADITYA Trammell Attending Clinician Unavaila AMELIA Murcia Attending Clinician Unavailable RAD SERRA Attending Clinician Unavaila KAYLEY Sims Attending Clinician Unavailable Venkat CURRIE, Kassandra Jones Attending Clinician Unavaila Hany Hoffman Attending Clinician +[phone] Dennis FAMILY READINESS SUPPORT ASSISTANT, Alissa Attending Clinician +[phone] Lydia Kim MD Attending Clinician +[phone] PREET SHAY Attending Clinician Unavailable NI DISLA Attending Clinician Unavailable OSITO SANTIAGO Attending Clinician Unavailable RODRIGUEZ HOFF Attending Clinician Un available ROSALES SHAY Attending Clinician Unavailable Osito Santiago MD Attending Clinician Unavailable Scott Gilbert MD Attending Clinician +[phone] MARICRUZ DELUNA Attending Clinician Unavailable SARAHI AVILA Attending Clinician Unavailable ROSANA HUBER Admitting Clinician Unavail able PRASANNA VARGAS Admitting Clinician Unavailable ANAMARIA GONZALES Admitting Clinician Unavailable ROSENDO LEVY Admitting Clinician Unavailable TAJ DE PAZ Admitting Clinician UnavailTaj Lewis MD Admitting Clinician [phone] JOSE MANDUJANO Admitting Clinician Unavailable Jose Mandujano MD Admitting Clinician +[phone] HANY LEE Admitting Clinician Unavailable Hany Lee MD Admitting Clinician +[phone] ROLDAN WALKER Admitting Clinician Unavailable TOD AGUILAR Admitting Clinician Unavailab lisandro WOO Admitting Clinician Unavailable KUN STEELE Admitting Clinician Unavailable Kun Steele MD Admitting Clinician [phone] OC BRIDGES Admitting Clinician Unavailable LYDIA COLMENARES Admitting Clinician Unavailab MAGGIE Luna Admitting Clinician Unavailab ROSENDO Garcia Admitting Clinician Unavailable MAURA COX Admitting Clinician UnavailHUMBERTO Oreilly Admitting Clinician Unavailable KARON NORTON Admitting Clinician Unavailable Kaycee MÉNDEZ Admitting Clinician Unavailable OLAMIDE GARVIN Admitting Clinician Unavailable RODRIGUEZ HOFF Admitting Clinician Un available MARICRUZ DELUNA Admitting Clinician Unavailable Payers Payer Name Policy Type Policy Number Effective Date Expirati on Date Source [facility] [employer] [id number] 2019 00:00:00 CIGNA II [id number] 2023 00:00:00 [place] [place] [facility] [id number] 2024 00:00:00 2024 00:00:00 Problems Condition Name [...] of dementia Disease Active 3- 00:00: 00 [facility] B12 deficiency (suboptima l level <400) B12 deficiency (suboptima l level <400) Disease Active 2020-05 1-06 00:00: 00 [facility] Trouble in sleeping Trouble in sleeping Disease Active 2021-0 4-27 00:00: 00 [facility] Tachycardi a Tachycardi a Disease Active 2019-05 2-01 00:00: 00 [facility] Visual changes Visual changes Disease Resolve d 2019- 2-26 00:00: 00 2020-09-06 00:00:00 2020-09-06 16:27:31 [facility] Headache Headache Disease Resolve d 2019-05 2-19 00:00: 00 2020-09-06 00:00:00 2020-09-06 16:27:31 [facility] Sinus tachycardi a Sinus tachycardi a Disease Resolve d 2019-05 2-02 00:00: 00 2020-09-06 00:00:00 2020-09-06 16:27:34 [facility] Insomnia, unspecifie d type Insomnia, unspecifie d type Disease Resolve d 2019- 8-25 00:00: 00 2020-09-06 00:00:00 2020-09-06 16:27:43 [facility] Cervical Papanicola ou smear negative within last 12 months Cervical Papanicola ou smear negative within last 12 months Disease Resolve d 2019- 2-07 00:00: 00 2020-05-24 00:00:00 2021-11-26 00:58:00 [facility] Other general counseling and advice for contracept bonifacio management Other general counseling and advice for contracept bonifacio management Disease Resolve d 2019- 4-22 00:00: 00 2020-01-05 00:00:00 2020-01-05 17:38:00 [facility] Routine follow-up Routine follow-up Disease Resolve d 2019-0 4-02 00:00: 00 2020-01-05 00:00:00 2020-01-05 17:37:57 [facility] Back pain Back pain Disease Resolve d 2019- 4-02 00:00: 00 2020-01-05 00:00:00 2020-01-05 17:37:59 [facility] History of tubal ligation History of tubal ligation Disease Resolve d 2018- 2-27 00:00: 00 2020-01-05 00:00:00 2020-01-05 17:37:[address] [facility] Anxiety during in second trimester, antepartum Anxiety during in second trimester, antepartum Disease Resolve d 2018-1 2-05 00:00: 00 2020-01-05 00:00:00 2020-01-05 17:37:[address] [facility] Asthma affecting in third trimester Asthma affecting in third trimester Disease Resolve d 2018-1 2-05 00:00: 00 2020-01-05 00:00:00 2020-01-05 17:37:[address] [facility] Liveborn , of morel , born in hospital by delivery Liveborn , of morel , born in hospital by delivery Disease Resolve d 2019-0 3-12 00:00: 00 2019-08-13 00:00:00 2019-08-13 11:34:[address] [facility] Normal labor Normal labor Disease Resolve d 2019-0 3-10 00:00: 00 2019-08-13 00:00:00 2019-08-13 11:34:[address] [facility] 37 weeks gestation of 37 weeks gestation of Disease Resolve d 2019-0 1-02 00:00: 00 2019-08-13 00:00:00 2019-08-13 11:51:[address] [facility] Gastroesop hageal reflux in Gastroesop hageal reflux in Disease Resolve d 2018-1 2-27 00:00: 00 2019-08-13 00:00:00 2019-08-13 11:33:[address] [facility] Supervisio n of high risk in third trimester Supervisio n of high risk in third trimester Disease Resolve d 2018-0 9-27 00:00: 00 2019-08-13 00:00:00 2019-08-13 11:32:[address] [facility] Multiparit y Multiparit y Disease Resolve d 2018-0 9-27 00:00: 00 2019-08-13 00:00:00 2019-08-13 11:33:04 [facility] History of delivery History of delivery Disease Resolve d 2018-0 9-27 00:00: 00 2019-08-13 00:00:00 2019-08-13 11:33:12 [facility] History of section History of section Disease Resolve d 2018-0 9-27 00:00: 00 2019-08-13 00:00:00 2019-08-13 11:33:20 [facility] History of History of Disease Resolve d 2018-0 9-27 00:00: 00 2019-08-13 00:00:00 2019-08-13 11:33:21 [facility] IUGR (intrauter ine growth restrictio n) affecting care of mother, third trimester, fetus 1 IUGR (intrauter ine growth restrictio n) affecting care of mother, third trimester, fetus 1 Disease Resolve d 2019-0 2-11 00:00: 00 2019-07-21 00:00:00 2019-07-21 07:42:45 [facility] Body aches Body aches Disease Resolve d 2019-0 2-11 00:00: 00 2019-07-21 00:00:00 2019-07-21 07:41:46 [facility] Upper respirator y tract infection, unspecifie d type Upper respirator y tract infection, unspecifie d type Disease Resolve d 2019-0 2-11 00:00: 00 2019-07-21 00:00:00 2019-07-21 07:43:06 [facility] Pain of round ligament during Pain of round ligament during Disease Resolve d 2019-0 1-23 00:00: 00 2019-07-21 00:00:00 2019-07-21 07:42:49 [facility] [...] 1-18 00:00: 00 2019-05-28 00:00:00 2019-05-28 23:14:52 [facility] Allergies, Adverse Reactions, Alerts Allergy Name Allergy Type Status Severity Reaction(s) Onset Date Inactive Date Treating Clinician Comments Source MORPHINE DRUG INGREDI Active Hives 2023-05 2 00:00: 00 [facility] Morphine Propensi [...] Y DRUG) Drug Class Active High Hives 2023-0 4-12 00:00: 00 [facility] PROCHLOR PERAZINE DRUG INGREDI Active Hives 2023-0 4-12 00:00: 00 [facility] HALOPERI DOL LACTATE DRUG INGREDI Active Hives 2023-0 4-12 00:00: 00 [facility] LATEX DRUG INGREDI Active ITCHING 2023-0 4-12 00:00: 00 [facility] METOCLOP [...] reaction s Active Shortness of Breath 2023-0 412 00:00: 00 [facility] Metoclop ramide Propensi ty to adverse reaction s Active Other - See comments 2023-0 - 00:00: 00 Agitated [facility] Nsaids (Non-Jae roidal Anti-Inf lammator y Drug) Propensi ty to adverse reaction s Active Shortness of Breath 2023-0 4-12 00:00: 00 [facility] KETOROLA C DRUG INGREDI Active Hives 2022-0 - 00:00: 00 [facility] HALOPERI DOL DRUG INGREDI Active Other-Cmnt 2022-0 - 00:00: 00 [facility] Haloperi dol Propensi ty to adverse reaction s Active Other - See comments 0 - 00:00: 00 Pt states, "I get angry". [facility] Ketorola c Propensi ty to adverse reaction s Active Hives 0 9- 00:00: [address] [facility] METOCLOP RAMIDE DRUG INGREDI Active Low Anxiety 2021-0 8- 00:00: [address] [facility] Metoclop ramide Propensi ty to adverse reaction s Active Anxiety 0 8- 00:00: [address] [facility] Metoclop ramide Propensi ty to adverse reaction s to drug Active Anxiety 0 8- 00:00: [address] [facility] Prochlor perazine Propensi ty to adverse reaction s to drug Active Hives 0 1- 00:00: [address] [facility] PROCHLOR PERAZINE DRUG INGREDI Active Med Hives 0 1-17 00:00: [address] [facility] Latex Propensi ty to adverse reaction s Active Rash 2019-1 2- 00:00: [address] [facility] LATEX DRUG INGREDI Active Low Rash 2020-1 2- 00:00: [address] [facility] Metoclop ramide Hcl Propensi ty to adverse reaction s to drug Active Anxiety 2020-0 3- 00:00: 00 Patient says she gets figity, angry and mean [facility] METOCLOP RAMIDE HCL DRUG INGREDI Active Low Anxiety 2020-0 3- 00:00: 00 [facility] Family History Family Member Diagnosis Comments Start Date Stop Date Sourc e Natural brother [facility] Natural father Diabetes [facility] Natural [facility] Maternal grandfather Diabetes [facility]aternal grandfather Heart [facility] Maternal grandfather Neurological [facility]aternal grandmother Breast Cancer [facility] Maternal grandmother Cancer [facility] Maternal grandmother Heart [facility] Maternal grandmother Neurological [facility] Maternal grandmother Ovarian Cancer [facility] Natural mother [facility] Natural mother [facility] Natural mother Heart [facility] Natural mother [facility] Paternal grandmother Cancer [facility] Paternal grandmother Heart [facility] Paternal grandmother Ovarian Cancer [facility] Natural sister [facility] Social History Social Habit Start Date Stop Date Quantity Comments Source History SDOH [facility] SDOH Alcohol Binge [facility] History SDOH Alcohol Comment [facility] Gender identity [facility] Alcohol intake 2023-08-26 00:00:00 2023-08-26 00:00:00 Ex-drinker (finding) [facility] Education 2023-08-23 00:00:00 2023-08-23 00:00:00 11 [facility] Exposure to SARS-CoV-2 (event) 2022-08-26 00:00:00 2022-09-05 09:28:00 Not sure [facility] Alcoholic beverage intake 2022-07-31 00:00:00 2022-07-31 00:00:00 Ex-drinker (finding) [facility] Tobacco use and exposure 2021-12-12 00:00:00 2021-12-12 00:00:00 Smokeless tobacco non-user [facility] History of Social function 2021-07-17 00:00:00 2021-07-17 00:00:00 [facility] History SDOH Alcohol Frequency 2019-02-06 00:00:00 2019-02-06 00:00:00 1 [facility] Sex assigned at 1995 00:00:00 1995 00:00:00 [facility] Smoking Status Start Date Stop Date Source [...] 1 dose, On Sat05/19/24 at 1645, STAT [facility] methylpredn isolone sod succ (SOLU-MEDRO L) injection 125 mg 05-19 21:30: 00 05-19 20:34 :00 No 125mg 125 mg, Intramuscu lar, ONCE NOW, 1 dose, On Sat05/19/24 at 1530, [facility] diphenhydrA MINE (BENADRYL) tablet 25 mg 05-19 20:30: 00 05-19 20:33 :00 No 25mg 25 mg, Oral, ONCE, 1 dose, On Sat05/19/24 at 1430, [facility] pantoprazol e (PROTONIX) injection 40 mg 05-19 20:00: 00 05-19 19:55 :00 No 40mg 40 mg, Slow IV Push, ONCE, 1 dose, On Sat05/19/24 at 1400 [facility] maalox/diph enhydrAMINE :lidocaine2 %viscous 1:1:1: suspension (COMPOUNDED ) 05-19 19:15: 00 05-19 19:54 :00 No 15mL 15 mL, Oral, ONCE, 1 dose, On Sat05/19/24 at 1315, [facility] diphenhydrA MINE (BENADRYL) injection 50 mg 2023-05 15:00: 00 04-19 14:52 :00 No 50mg 50 mg, Slow IV Push, ONCE, 1 dose, On Sat04/19/24 at 0900, [facility] NaCl 0.9% (NS) bolus infusion 1,000 mL 2023-05 14:15: 00 04-19 15:52 :00 No 1000mL at 999 mL/hr, 1,000 mL, IV Infusion, ONCE, 1 dose, On Sat04/19/24 at 0815, [facility] ondansetron (ZOFRAN (PF)) injection 4 mg 2023-05 14:15: 00 04-19 14:35 :00 No 4mg 4 mg, Slow IV Push, ONCE, 1 dose, On 12/8/24 at 0815, Administer over 2-5 Minutes, 2 [...] 2023-05 00:00: 00 04-23 05:59 :00 Yes [id number] 1{packe t} Take 1 Packet by mouth in the morning and 1 Packet in the evening. Do all this for 3 days. [facility] morpHINE injection 2 mg 2023-05 20:00: 00 04-12 19:17 :00 No 2mg 2 mg, Slow IV Push, ONCE, 1 dose, On Sat04/12/24 at 1400, STAT [facility] acetaminoph [...] Push, ONCE, 1 dose, On Sat04/12/24 at 1030, Routine [facility] fentanyl [...] 2023-05 03:16: 00 03-13 03:00 :00 No [id number] 80mL 80 mL, Intravenou s, ONCE, 1 dose, On Sat03/12/24 at 2230, Routine [facility] diphenhydrA MINE (BENADRYL) injection 100 mg 2023-05 03:00: 00 03-13 05:06 :00 No [id number] 100mg 100 mg, Slow IV Push, ONCE, 1 dose, On Sat03/12/24 at 2200, STAT [facility] budesonide (PULMICORT RESPULE) nebulizer solution 1 mg 2023-05 01:00: 00 Yes 1mg 1 mg, Inhalation , BID, First dose on Sat03/12/24 at 2000, Until Discontinu ed, Routine [facility] amitriptyli ne 25 mg tablet 2023-05 00:00: 00 Yes [id number] 25mg Take 1 tablet by mouth at bedtime. [facility] budesonide 0.5 mg/2 mL nebulizer solution 2023-05 00:00: 00 06-06 05:59 :00 No [id number] 1mg Inhale 4 mL in the morning and 4 mL in the evening. Do all this for 84 days. [facility] diphenhydrA MINE 25 mg tablet 2023-05 00:00: 00 03-21 05:59 :00 No [id number] 25mg Take 1 tablet by mouth every [...] Sat03/12/24 at 1545, 1 mL [facility] diphenhydrA MINE (BENADRYL) injection 25 mg 2023-05 20:30: 00 03-12 20:58 :00 No 25mg 25 mg, Intravenou s, ONCE, 1 dose, On Sat03/12/24 at 1545, Routine [facility] diphenhydrA MINE (BENADRYL) injection 25 mg 2023-05 16:30: 00 03-12 16:16 :00 No 25mg 25 mg, Intravenou s, ONCE, 1 dose, On Sat03/12/24 at 1130, Routine [facility] diazePAM (VALIUM) injection 2 mg 2023-05 15:45: 00 03-13 13:38 :00 No 2mg 2 mg, Slow IV Push, BID, First dose on Sat03/12/24 at 1045, Until Discontinu ed, Routine [facility] Potassium Bicarb-Citr ic Acid (EFFER-K) effervescen t tablet 40 mEq 2023-05 03:45: 00 03-12 03:18 :00 No 40meq 40 mEq, Oral, ONCE, 1 dose, On Sat03/11/24 at 2245, Routine [facility] amitriptyli ne (ELAVIL) tablet 25 mg 2023-05 02:00: 00 Yes 25mg 25 mg, Oral, QHS, First dose on Sat03/11/24 at 2100, Until Discontinu ed, Routine [facility] budesonide (PULMICORT RESPULE) nebulizer solution 0.25 mg 2023-05 20:30: 00 03-12 15:40 :27 No .25mg 0.25 mg, Inhalation , BID, First dose (after last modificati on) on Sat03/11/24 at 1530, Until Discontinu ed, Routine [facility] morpHINE injection 2 mg 2023-05 18:00: 00 03-11 18:18 :00 No 2mg 2 mg, Slow IV Push, ONCE, 1 dose, On Sat03/11/24 at 1300, Routine [facility] proMETHazin e (PHENERGAN) 12.5 mg in NS 50 mL IV piggyback (CNR) 2023-05 16:08: 36 03-13 06:15 :30 No 12.5mg 12.5 mg, IV Piggyback, at 200 mL/hr Administer over 15 Minutes, Q4HPRN, Starting on Sat03/11/24 at 1108, Until Sat03/13/24 at 0115, [place], Nausea and Vomiting (N/V) [facility] diphenhydrA MINE (BENADRYL) injection 25 mg 2023-05 15:45: 00 03-11 15:14 :00 No 25mg 25 mg, Intravenou s, ONCE, 1 dose, On Sat03/11/24 at 1045, Routine [facility] morphine (2 mg/mL) injection 4 mg 2023-05 13:44: 13 03-11 17:55 :50 No 4mg 4 mg, Slow IV Push, Q4HPRN, Starting on Sat03/11/24 at 0844, Until Sat03/11/24 at 1255, Routine, Pain (scale 7-10) [facility] magnesium sulfate in water 4 gram/50 mL (8 %) IV Piggyback 4 g 2023-05 13:00: 00 03-11 16:09 :00 No 4g 4 g, IV Piggyback, at 25 mL/hr Administer over 120 Minutes, ONCE, 1 dose, On Sat03/11/24 at 0800, [facility]acy[facility] ([facility]OMYCIN ) capsule 500 [...] 1 dose, On Sat03/10/24 at 2100, Routine [facility] [facility] mor[facility]INE injection 4 mg [...] ONCE, 1 dose, On Sat03/10/24 at 1330, [facility] diphenhydrA MINE:lidoca ine 2% viscous:maa lox [...] ONCE, 1 dose, On Sat03/10/24 at 1130, [facility] morpHINE injection 4 mg 2023-05 16:30: 00 03-10 16:33 :00 No 4mg 4 mg, Slow IV Push, ONCE, 1 dose, On Sat03/10/24 at 1130, [facility] ondansetron (ZOFRAN (PF)) injection 4 mg 2023-05 15:30: 00 03-10 15:54 :00 No 4mg 4 mg, Slow IV Push, ONCE, 1 dose, On Sat03/10/24 at 1030, [facility] pantoprazol e (PROTONIX) EC tablet 40 mg 2023-05 025 01:00: 00 03-05 22:06 :08 No 40mg 40 mg, Oral, BID, First dose on Sat03/05/24 at 2000, Until Discontinu ed, Routine [facility] bismuth subsalicyla te (PEPTO BISMOL) chewable tablet [...] at 0800, Last dose on Sat03/18/24 at 1999, [place], Reason for Anti-Infec tive: Documented Infection, [...] Push, Q12H, First dose on Sat03/04/24 at 1999, Until Discontinu ed [facility] metroNIDAZO LE 500 mg tablet 2023-05 00:00: 00 Yes [id number] 500mg Take 1 tablet by mouth 4 (four) times daily. [facility] tetracyclin e 500 mg capsule 2023-05 00:00: 00 Yes [id number] 500mg Take 1 capsule by mouth 4 (four) times daily. [facility] bismuth subsalicyla te 525 mg Tab 2023-05 00:00: 00 Yes [id number] 525mg Take 525 mg by mouth 4 (four) times daily. [facility] omeprazole 20 mg capsule 2023-05 00:00: 00 Yes [id number] 20mg Take 1 capsule by mouth in the morning and 1 capsule in the evening. [facility] ondansetron 4 mg disintegrat ing tablet 2023-05 00:00: 00 Yes [id number] 4mg Take 1 tablet by mouth every [...] 1410, Until Kathie 03/05/24 at 1706, Routine, Nausea and Vomiting (N/V) [facility] HYDROcodone -acetaminop hen (NORCO 5) tablet 1 tablet 2023-05 19:10: 38 03-05 22:06 :08 No 1{tbl} 1 tablet, Oral, Q6HPRN, Starting on Sat03/04/24 at 1410, Until Sat03/05/24 at 1706, Routine, Pain (scale 4-6) [facility] acetaminoph en (TYLENOL) tablet 650 mg 2023-05 19:10: 34 03-05 22:06 :[address] [facility] morphine (2 mg/mL) injection 4 mg 2023-05 16:15: 00 03-04 16:19 :00 No 4mg 4 mg, Slow IV Push, ONCE, 1 dose, On Sat03/04/24 at 1115, [place] [facility] ondansetron (ZOFRAN (PF)) injection 4 mg 2023-05 16:15: 00 03-04 16:19 :00 No 4mg 4 mg, Slow IV Push, ONCE, 1 dose, On Sat03/04/24 at 1115, [place] [facility] morphine (2 mg/mL) injection 4 [...] 2023-05 00:00: 00 03-05 00:00 :00 No [id number] 525mg Take 525 mg by mouth 4 (four) times daily for 14 days. [facility] metroNIDAZO LE 500 mg tablet 2023-05 00:00: 00 03-05 00:00 :00 No [id number] 500mg Take 1 tablet by mouth 4 (four) times daily for 14 days. [facility] tetracyclin e 500 mg capsule 2023-05 00:00: 00 03-05 00:00 :00 No [id number] 500mg Take 1 capsule by mouth 4 (four) times daily for 14 days. [facility] omeprazole 20 mg capsule 2023-05 00:00: 00 03-05 00:00 :00 No [id number] 20mg Take 1 capsule by mouth in the morning and 1 capsule in the evening. Do all this for 14 days. [facility] pantoprazol e (PROTONIX) EC tablet 40 mg 2023-05 16:45: 00 02-26 23:59 :22 No 40mg 40 mg, Oral, BID, First dose (after last modificati on) on Kathie 02/27/24 at 1145, Until Discontinu ed, Routine [facility] lactated ringers IV infusion 2023-05 15:19: 00 02-26 15:26 :52 No IV Infusion, CONTINUOUS PRN, Starting on Kathie 02/27/24 at 1019, Until Kathie 02/27/24 at 1026, Routine, Intra-op [facility] simethicone (GAS RELIEF (SIMETHICON E)) 40 mg/0.6 mL drops 2023-05 14:57: 00 02-26 16:34 :28 No PRN, Starting on Sat02/27/24 at 0957, Until Kathie 02/27/24 at 1134, Routine, Intra-op [facility] PHENYLephri ne 1000 mcg/10 mL in 0.9% NaCl syringe 2023-05 14:50: 00 02-26 15:26 :52 No Intravenou s, ONCE INTRA PROCEDURE, Starting on Sat02/27/24 at 0950, Until Sat02/27/24 at 1026, Routine, Intra-op [facility] dexmedeTOMI Dine (PRECEDEX) injection 2023-05 14:27: 00 02-26 15:26 :52 No Intravenou s, ONCE INTRA PROCEDURE, Starting on Sat02/27/24 at 0927, Until Kathie 02/27/24 at 1026, Routine, Intra-op [facility] propofoL IV infusion 2023-05 14:26: 00 02-26 15:26 :52 No IV Infusion, ONCE INTRA PROCEDURE, Starting on Kathie 02/27/24 at 0926, Until Kathie 02/27/24 at 1026, Routine, Intra-op [facility] lidocaine 1% (XYLOCAINE) 100 mg/10 mL (1 %) injection 2023-05 14:26: 00 02-26 15:26 :52 No Intravenou s, ONCE INTRA PROCEDURE, Starting on Kathie 02/27/24 at 0926, Until Kathie 02/27/24 at 1026, Routine, Intra-op [facility] FENTanyl (PF) (SUBLIMAZE) injection 2023-05 14:26: 00 02-26 15:26 :52 No Intravenou s, ONCE INTRA PROCEDURE, Starting on Sat02/27/24 at 0926, Until Kathie 02/27/24 at 1026, Routine, Intra-op [facility] midazolam (VERSED) injection 2023-05 14:24: 00 02-26 15:26 :52 No IV Push, ONCE INTRA PROCEDURE, Starting on Kathie 02/27/24 at 0924, Until Kathie 02/27/24 at 1026, Routine, Intra-op [facility] NaCl 0.9% (NS) IV infusion 2023-05 14:22: 00 02-26 15:26 :52 No IV Infusion, CONTINUOUS PRN, Starting on Sat02/27/24 at 0922, Until Kathie 02/27/24 at 1026, Routine, Intra-op [facility] sodium phosphates (READY-TO-U SE ENEMA) 19-7 gram/118 mL enema 1 Enema 2023-05 10:00: 00 02-26 10:05 :00 No 1{enema } 1 Enema, Rectal, ONCE, 1 dose, On Sat02/27/24 at 0500, Routine [facility] polyethylen e glycol 3350 powder 17 g 2023-05 01:00: 00 02-26 21:59 :19 No 17g 17 g, Oral, BID, First dose (after last modificati on) on Sat02/26/24 at 2000, Until Discontinu ed, Routine [facility] ondansetron 4 mg disintegrat ing tablet 2023-05 00:00: 00 03-05 00:00 :00 No [id number] 4mg Take 1 tablet by mouth every 8 (eight) hours as needed for Nausea and Vomiting (N/V). [facility] pantoprazol e 40 mg EC tablet 2023-05 00:00: 00 03-05 00:00 :00 No [id number] 40mg Take 1 tablet by mouth in the morning and 1 tablet in the evening. [facility] amitriptyli ne 25 mg tablet 2023-05 00:00: 00 03-04 00:00 :00 No [id number] 25mg Take 1 tablet by mouth at [...] Sat02/26/24 at 1800, Until Discontinu ed, Routine [facility] morphine (2 mg/mL) injection 2 mg [...] Q6HPRN, Starting on Sat02/26/24 at 1339, Until Sat02/27/24 at 1659, Routine, Anxiety [facility] bisacodyL (DULCOLAX) suppository 10 mg 2023-05-16 18:17: 00 02-25 18:47 :00 No 10mg 10 mg, Rectal, ONCE NOW, 1 dose, On Sat02/26/24 at 1330, Routine [facility] acetaminoph en (OFIRMEV) IV piggyback 1,000 mg 2023-05 15:30: 00 02-25 15:03 :00 No 1000mg 1,000 mg, IV Piggyback, at 400 mL/hr Administer over 15 Minutes, ONCE, 1 dose, On Sat02/26/24 at 1030, Routine, Is the patient strict NPO and unable to tolerate oral medication s? Yes [facility] bisacodyL (DULCOLAX) tablet 5 mg 2023-05 14:30: 00 02-26 21:59 :19 No 5mg 5 mg, Oral, DAILY, First dose on Sat02/26/24 at 0930, Until Discontinu ed, Routine [facility] amitriptyli ne (ELAVIL) tablet 25 mg 2023-05 02:00: 00 02-26 23:59 :22 No 25mg 25 mg, Oral, QHS, First dose on Sat02/25/24 at 2100, Until Discontinu ed, Routine [facility] morphine (2 mg/mL) injection 4 mg 2023-0515 18:49: 53 02-25 14:28 :08 No 4mg 4 mg, Slow IV Push, Q4HPRN, Starting on Sat02/25/24 at 1349, Until Sat02/26/24 at 0928, Routine, Pain (scale 7-10) [facility] morphine (2 mg/mL) injection 2 mg 2023-05 0-15 18:49: 15 02-25 14:28 :08 No 2mg 2 mg, Slow IV Push, Q4HPRN, Starting on Sat02/25/24 at 1349, Until Sat02/26/24 at 0928, Routine, Pain (scale 7-10) [facility] gadobenate dimeglumine (MULTIHANCE -10 mL) injection 9.08 mL 2023-05 17:30: 00 02-24 17:30 :00 No [id number] .2mL/kg 9.08 mL (0.2 mL/kg ?45.4 kg), Intravenou s, ONCE, 1 dose, On Sat02/25/24 at 1230, Routine [facility] LORazepam (ATIVAN) injection 1 mg 2023-05 17:00: 00 02-24 16:25 :00 No 1mg 1 mg, Slow IV Push, ONCE, 1 dose, On Sat02/25/24 at 1200, STAT [facility] polyethylen e glycol 3350 powder 17 g 2023-05 16:00: 00 02-25 14:24 :01 No 17g 17 g, Oral, DAILY, First dose on Sat02/25/24 at 1100, Until Discontinu ed, Routine [facility] lactated ringers IV infusion 1,000 mL 2023-05 13:15: 00 02-26 21:59 :19 No 1000mL at 125 mL/hr, 1,000 mL, IV Infusion, CONTINUOUS , Starting on Sat02/25/24 at 0815, Until Kathie 02/27/24 at 1659, Routine [facility] potassium chloride in water (KCL) 20 mEq/100 mL IV infusion 20 mEq 2023-05 13:00: 00 02-24 13:30 :00 No 20meq 20 mEq, IV Infusion, at 50 mL/hr Administer over 2 Hours, ONCE, 1 dose, On Sat02/25/24 at 0800, Routine [facility] melatonin (MELATIN) tablet 3 mg 2023-05 02:00: 00 02-26 21:59 :19 No 3mg 3 mg, Oral, QHS, First dose on Sat02/24/24 at 2100, Until Discontinu ed, Routine [facility] lactated ringers IV infusion 500 mL 2023-05 19:30: 00 02-24 09:54 :00 No 500mL at 999 mL/hr, 500 mL, IV Infusion, ONCE, 1 dose, On Sat02/24/24 at 1430, Routine [facility] Lidocaine (LIDOCARE) 4 % patch 1 Patch 2023-05 18:00: 00 02-24 05:15 :00 No 1{patch } 1 Patch, Topical, Administer over 12 Hours, ONCE, 1 dose, On Sat02/24/24 at 1300, Routine [facility] LORazepam (ATIVAN) injection 0.5 mg 2023-05 12:25: 30 02-25 18:39 :43 No .5mg 0.5 mg, Slow IV Push, Q6HPRN, Starting on Sat02/24/24 at 0725, Until Sat02/26/24 at 1339, Routine, Anxiety, Agitation [facility] diphenhydrA MINE (BENADRYL) injection 25 mg 2023-05 01:40: 29 02-23 14:54 :01 No 25mg 25 mg, Intravenou s, Q6HPRN, Starting on Sat02/23/24 at 2040, Until Sat02/24/24 at 0954, Routine, Nausea and Vomiting (N/V) [facility] LORazepam (ATIVAN) injection 0.5 mg 2023-05 01:39: 00 02-23 02:48 :00 No .5mg 0.5 mg, Slow IV Push, ONCE, 1 dose, On Sat02/23/24 at 2045, Routine [facility] diphenhydrA MINE (BENADRYL) injection 25 mg 2023-05 14:19: 13 02-23 01:14 :28 No 25mg 25 mg, Intravenou s, Q6HPRN, Starting on Sat02/23/24 at 0919, Until Sat02/23/24 at 2014, Routine, Nausea and Vomiting (N/V) [facility] ondansetron (ZOFRAN (PF)) injection [...] 08-23 00:00: 00 11-22 04:59 :00 No [id number] 250mg Take 1 tablet by mouth in the morning and 1 tablet in the evening. Do all this for 90 days. [facility] acetaminoph en-codeine 300-30 mg tablet 4-13 00:00: 00 08-31 04:59 :00 No [...] 1 dose, On Sat05/19/23 at 1045, STAT [facility] NaCl 0.9% (NS) bolus infusion 1,000 mL 05-19 16:00: 00 05-19 17:00 :00 No 1000mL at 999 mL/hr, 1,000 mL, IV Infusion, ONCE, 1 dose, On Sat05/19/23 at 1000, [place] [facility] iopamidol (ISOVUE 370-500 mL) injection 80 mL 05-19 15:50: 00 05-19 16:15 :00 No [id number] 80mL 80 mL, Intravenou s, ONCE, 1 [...] ONCE, 1 dose, [facility]19[facility]23 [facility] 0915[facility] disintegrat ing tablet 05-19 00:00: 00 02-26 00:00 :00 No [id number] 4mg Take 1 tablet by mouth every 8 (eight) hours as needed for Nausea and Vomiting (N/V). [facility] sucralfate 1 gram tablet 05-19 00:00: 00 06-19 05:59 :00 No [id number] 1g Take 1 tablet by mouth before meals and at bedtime for 30 days. [facility] pantoprazol e 40 mg EC tablet 05-19 00:00: 00 06-19 05:59 :00 No [id number] 40mg Take 1 tablet by mouth in the morning for 30 days. [facility] cefdinir 300 mg capsule 05-19 00:00: 00 05-27 05:59 :00 No [id number] 300mg Take 1 capsule by mouth every 12 (twelve) hours for 7 days. [facility] morpHINE (2 mg/mL) injection 2 mg 01-15 19:15: 00 01-15 18:49 :00 No 2mg 2 mg, Slow IV Push, ONCE, 1 dose, On Sat01/15/23 at 1415, Routine [facility] ondansetron (ZOFRAN) tablet 4 mg 01-15 18:15: 00 01-15 22:02 :00 No 4mg 4 mg, Oral, ONCE, 1 dose, On Sat01/15/23 at 1315, Routine [facility] ondansetron 4 mg tablet 01-15 00:00: 00 02-26 00:00 :00 No [id number] 4mg Take 1 tablet by mouth every 8 (eight) hours as needed for Nausea and Vomiting (N/V). [facility] HYDROcodone -acetaminop hen 5-325 mg tablet 01-15 00:00: 00 01-23 04:59 :00 No [id number] 1{tbl} Take 1 tablet by mouth every 4 (four) hours as needed for Pain (scale 4-6) for up to 7 days. Indication s: acute pain [facility] morpHINE (2 mg/mL) injection 2 mg 01-14 16:11: 23 01-15 11:49 :59 No 2mg 2 mg, Slow IV Push, Q4HPRN, Starting on Sat01/14/23 at 1111, Until Sat01/15/23 at 0649, Routine, Pain (scale 7-10) [facility] methocarbam oL (ROBAXIN) tablet 500 mg 01-14 13:00: 00 Yes 500mg 500 mg, Oral, QID, First dose on Sat01/14/23 at 0800, Until Discontinu ed, Routine [facility] celecoxib (CELEBREX) capsule 100 mg 01-14 13:00: 00 Yes 100mg 100 mg, Oral, BID MEALS, First dose on Sat01/14/23 at 0800, Until Discontinu ed, Routine [facility] gabapentin (NEURONTIN) capsule 300 mg 01-14 01:30: 00 Yes 300mg 300 mg, Oral, TID, First dose on 01/13/23 at 2030, Until Discontinu ed, Routine [facility] acetaminoph en (TYLENOL) tablet 1,000 mg 01-14 01:30: 00 Yes 1000mg 1,000 mg, Oral, Q8H, First dose (after last modificati on) on 01/13/23 at 2030, Until Discontinu ed, Routine [facility] scopolamine transdermal (TRANSDERM- SCOP) patch 1.5 mg 01-13 00:30: 00 Yes 1.5mg 1.5 mg, Topical, Administer over 72 Hours, Q72H, First dose on 01/12/23 at 1930, Until Discontinu ed, Routine [facility] enoxaparin (LOVENOX) injection 40 mg 01-12 22:00: 00 Yes 40mg 40 mg, Subcutaneo us, DAILY, First dose on 01/12/23 at 1700, Until Discontinu ed, Routine [facility] FENTanyl PF (SUBLIMAZE (PF)) injection 100 mcg 01-12 20:30: 00 01-12 20:30 :00 No [id number] 100ug 100 mcg, Slow IV Push, ONCE, 1 dose, On 01/12/23 at 1530, Routine [facility] proMETHazin e (PHENERGAN) 25 mg in NS 50 mL IV piggyback (CNR) 01-12 17:11: 31 01-15 14:12 :44 No 25mg 25 mg, IV Piggyback, at 200 mL/hr Administer over 15 Minutes, Q4HPRN, Starting on 01/12/23 at 1211, Until Sat01/15/23 at 0912, Routine, Nausea and Vomiting (N/V) [facility] piperacilli n-tazobacta m (ZOSYN) 3.375 g in [...] Until Discontinu ed, Routine [facility] KCL (KLOR-CON M20) tablet 40 mEq 01-12 09:30: 00 01-12 09:25 :00 No 40meq 40 mEq, Oral, ONCE, 1 dose, On Sat01/12/23 at 0430, Routine [facility] diphenhydrA MINE (BENADRYL) tablet 25 [...] Sat01/15/23 at 0648, Routine [facility] piperacilli n-tazobacta m (ZOSYN) 3.375 [...] at 0100, Until 01/12/23 at 0313, Routine [facility] morpHINE (4 mg/mL) injection 4 mg 01-12 05:49: 22 01-14 05:48 :22 No 4mg 4 mg, Slow IV Push, Q4HPRN, Starting on 01/12/23 at 0049, Until 01/14/23 at 0048, Routine, Pain (scale 7-10) [facility] HYDROcodone -acetaminop hen (NORCO 5) 5-325 mg tablet 1 tablet 01-12 05:49: 18 Yes 1{tbl} 1 tablet, Oral, Q4HPRN, Starting on 01/12/23 at 0049, Until Discontinu ed, Routine, Pain (scale 4-6) [facility] ondansetron (ZOFRAN (PF)) injection 4 mg 01-12 05:49: 11 01-15 17:31 :12 No 4mg 4 mg, Slow IV Push, Q6HPRN, Starting on 01/12/23 at 0049, Until 01/15/23 at 1231, Routine, Nausea and Vomiting (N/V) [facility] ondansetron (ZOFRAN (PF)) injection 4 mg 01-12 04:45: 00 01-12 04:45 :00 No 4mg 4 mg, Slow IV Push, ONCE, 1 dose, On Sat01/11/23 at 2345, [place] [facility] morpHINE (4 mg/mL) injection 4 mg 01-12 04:45: 00 01-12 04:45 :00 No 4mg 4 mg, Slow IV Push, ONCE, 1 dose, On Sat01/11/23 at 2345, STAT [facility] proMETHazin e (PHENERGAN) 25 mg in NS 50 mL IV piggyback (CNR) 01-12 04:45: 00 01-12 06:00 :00 No 25mg 25 mg, IV Piggyback, at 200 mL/hr Administer over 15 Minutes, ONCE, 1 dose, On Sat01/11/23 at 2345, [place] [facility] iopamidol (ISOVUE 370-500 mL) injection 80 mL 01-12 03:33: 00 01-12 03:25 :00 No [id number] 80mL 80 mL, Intravenou s, ONCE, 1 dose, On Sat01/11/23 at 2245, Routine [facility] maalox:diph enhydrAMINE :lidocaine 2 % viscous 1:1:1 ([facility]) oral suspension 15 mL 01-12 03:30: 00 01-12 03:07 :00 No 15mL 15 mL, Oral, ONCE, 1 dose, On Sat01/11/23 at 2230, Routine [facility] morpHINE (4 mg/mL) injection 4 mg 01-12 03:30: 00 01-12 03:05 :00 No 4mg 4 mg, Slow IV Push, ONCE, 1 dose, [facility]01/11/23 at 2230[facility] NaCl 0.9% (NS) bolus infusion 1,000 mL 01-12 03:30: 00 01-12 03:04 :00 No 1000mL at 999 mL/hr, 1,000 mL, IV Infusion, ONCE, 1 dose, On Sat01/11/23 at 2230, [facility] ondans[facility] (ZOFRAN (PF)) injection [...] [facility] traZODone 50 mg tablet 0 6-12 00:00: 00 02-26 00:00 :00 No 1{tbl} Take 1 tablet by mouth at bedtime. [facility] hydrOXYzine 50 mg tablet -23 00:00: 00 Yes 50mg Take 1 tablet by mouth every 6 (six) hours as needed. [facility] hydrOXYzine 50 mg tablet 10-02 00:00: 00 02-26 00:00 :00 No 1{tbl} Take 1 tablet by mouth every 6 (six) hours as needed. [facility] mirtazapine 15 mg tablet -12 00:00: 00 02-26 00:00 :00 No 15mg Take 1 tablet by mouth at bedtime. [facility] meloxicam 15 mg tablet 5-09 [...] 1 dose, On Sat09/05/22 at 1230, [place] [facility] ondansetron (ZOFRAN (PF)) injection 4 mg 09-05 17:15: 00 09-05 17:23 :00 No 4mg 4 mg, Slow IV Push, ONCE, 1 dose, On Sat09/05/22 at 1215, [facility] magnesium sulfate in water [...] ONCE, 1 dose, On Sat09/05/22 at 0900, [facility] diphenhydrA MINE (BENADRYL) injection 25 [...] ONCE, 1 dose, On Sat09/05/22 at 0900, [facility] carvediloL 25 mg tablet 09-05 00:00: 00 02-26 00:00 :00 No [id number] 25mg Take 1 tablet by mouth in the morning and 1 tablet in the evening. Take with meals. [facility] losartan 50 mg tablet 09-05 00:00: 00 02-26 00:00 :00 No [id number] 50mg Take 1 tablet by mouth in [...] enhydrAMINE :lidocaine 2 % viscous 1:1:1 ([facility]) oral suspension 15 mL 08-01 00:45: 00 08-01 00:44 :00 No 15mL 15 mL, Oral, ONCE, 1 dose, On Sat07/31/22 at 1945, [facility] ketorolac (TORADOL[facility] 15 mg 08-01 00:15: 00 08-01 00:44 :00 No 15mg 15 mg, Slow IV Push, ONCE, 1 dose, On Sat07/31/22 at 1914, Routine [facility] ondansetron (ZOFRAN (PF)) injection 4 mg 08-01 00:15: 08-01 00:46 :00 No 4mg 4 mg, Slow IV Push, ONCE, 1 dose, On Sat07/31/22 at 191, [facility] famotidine (PEPCID (PF)) injection 20 mg 08-01 00:15: 00 08-01 00:46 :00 No 20mg 20 mg, Slow IV Push, ONCE, 1 dose, On Sat07/31/22 at 1914, [facility] ondansetron 4 mg disintegrat ing tablet 07-31 00:00: 00 05-19 00:00 :00 No [id number] 4mg Take 1 tablet by mouth every 8 (eight) hours as needed for Nausea and Vomiting (N/V). [facility] sucralfate 1 gram tablet 07-31 00:00: 00 05-19 00:00 :00 No [id number] 1g Take 1 tablet by mouth before meals and at bedtime. [facility] pantoprazol e 40 mg EC tablet 07-31 00:00: 00 08-15 04:59 :00 No [id number] 40mg Take 1 tablet by mouth in the morning for 14 days. [facility] tamsulosin 0.4 mg 24 hr capsule 3-15 00:00: 00 Yes .4mg Take 1 capsule by mouth in the morning. [facility] tamsulosin 0.4 mg 24 hr capsule - 00:00: 00 02-26 00:00 :00 No 1{capsu le} Take 1 capsule by mouth in the morning. [facility] traMADoL 50 mg tablet - 00:00: 00 02-26 00:00 :00 No 50mg Take 1 tablet by mouth. [facility] ibuprofen 600 mg tablet 05 00:00: 00 07-31 00:00 :00 No [id number] 600mg Take 1 tablet by mouth every 6 (six) hours as needed for Pain (scale 4-6). [facility] citalopram 10 mg tablet 06-29 00:00: 00 Yes 10mg Take 1 tablet by mouth in the morning. [facility] citalopram 10 mg tablet 06-29 00:00: 00 02-26 00:00 :00 No 1{tbl} Take 1 tablet by mouth in the morning. [facility] QUEtiapine 400 mg tablet 06-29 00:00: 00 02-26 00:00 :00 No [facility] gabapentin 600 mg tablet - 00:00: 00 02-26 00:00 :00 No [facility] methylPREDN ISolone (MEDROL, ANABELA,) 4 mg tablets - 00:00: 00 09-24 00:00 :00 No [id number] Take by mouth SEE-INSTRU CTIONS. follow package directions [facility] bromphenira mine-pseudo ephedrine-D M (BROMFED DM) 2-30-10 mg/5 mL syrup 2- 00:00: 00 07-04 05:59 :00 No [id number] 5mL Take 5 mL by mouth 4 (four) times daily as needed for Cold symptoms for up to 10 days. [facility] methocarbam oL 750 mg tablet 06-23 00:00: 00 07-01 05:59 :00 No [id number] 750mg Take 1 tablet by mouth 4 (four) times daily for 7 days. [facility] magnesium sulfate in water 2 gram/50 mL (4 %) infusion 2 g 2021-05 21:00: 00 05-05 21:15 :00 No 2g 2 g, IV Piggyback, Administer over 15 Minutes, ONCE, 1 dose, On 05/05/22 at 1500, [facility] butalbital- acetaminoph en-caff (ESGIC) 50-325-40 mg tablet 1 tablet 2021-05 20:15: 00 05-05 20:56 :00 No 1{tbl} 1 tablet, Oral, ONCE, 1 dose, On 05/05/22 at 1415, [place] [facility] dexamethaso ne sod [...] ONCE, 1 dose, On 05/05/22 at 1400, [facility] diphenhydrA MINE (BENADRYL) injection 25 [...] en-caff 50-325-40 mg tablet 2021-05 00:00: 00 09-24 00:00 :00 No [id number] 1{tbl} Take 1 tablet by mouth every [...] Hospital cephALEXin (KEFLEX) 500 mg capsule 2021-05 2-15 00:00: 00 05-04 05:59 :00 No [id number] 500mg Take 1 capsule by mouth in [...] 2021-05 00:00: 00 02-26 00:00 :00 No [id number] 120mg inject 120 mg under the skin [...] 1 dose, On 04/07/22 at 1715, Routine [facility] NaCl 0.9% (NS) bolus infusion 1,000 mL 2021-05 23:15: 00 04-07 23:49 :00 No 1000mL at 999 mL/hr, 1,000 mL, IV Infusion, ONCE, 1 dose, On 04/07/22 at 1715, [place] [facility] ketorolac (TORADOL) injection 15 mg 2021-05 19:30: 00 03-24 18:45 :00 No 15mg 15 mg, Slow IV Push, ONCE, 1 dose, On 03/24/22 at 1330, Routine [facility] butorphanol (STADOL) injection 1 mg 2021-05 18:00: 00 03-24 17:26 :00 No 1mg 1 mg, Intravenou s, ONCE, 1 dose, On 03/24/22 at 1200, Routine [facility] proMETHazin e (PHENERGAN) 25 [...] 1 dose, On 03/24/22 at 1115, Routine [facility] diphenhydrA MINE (BENADRYL) injection 25 mg 2021-05 15:30: 00 03-24 15:40 :00 No 25mg 25 mg, Slow IV Push, ONCE, 1 dose, On 03/24/22 at 0930, STAT [facility] ondansetron (ZOFRAN (PF)) [...] 2021-05 00:00: 00 02-26 00:00 :00 No [id number] 10mg Take 1 tablet by mouth as needed for Migraine. May repeat in 2 hours if needed [facility] Butalbital- Acetaminoph en-Caff (FIORICET) 50-300-40 mg per capsule 2021-05 00:00: 00 02-26 00:00 :00 No [id number] 1{capsu le} Take 1 capsule by mouth [...] Hospital carvediloL 25 mg tablet 2021-05 00:00: 09-05 00:00 :00 No [id number] 25mg Take 1 tablet by mouth in the morning and 1 tablet in the evening. Take with meals. [facility] ondansetron 4 mg disintegrat ing tablet 2021-05 00:00: 00 04-07 00:00 :00 No [id number] 4mg Take 1 tablet by mouth every 8 (eight) hours as needed for Nausea and Vomiting (N/V). [facility] ketorolac 10 mg tablet 2021-05 00:00: 00 04-07 00:00 :00 No [id number] 10mg Take 1 tablet by mouth every 6 (six) hours as needed for Pain (scale 7-10). [facility] proMETHazin e 25 mg tablet 2021-05 00:00: 00 04-07 00:00 :00 No [id number] 25mg Take 1 tablet by mouth every 6 (six) hours as needed for N/V unresponsi ve to Ondansetro n. [facility] cephALEXin 500 mg capsule 2021-05 00:00: 00 03-19 05:59 :00 No [id number] 500mg Take 1 capsule by mouth 4 (four) times daily for 3 days. [facility] predniSONE 20 mg tablet 2021-05 00:00: 00 03-15 04:59 :00 No [id number] 20mg Take 1 tablet by mouth in [...] 1 dose, On 03/11/22 at 1015, [place] [facility] ketorolac (TORADOL) injection 15 mg 2021-05 14:45: 00 03-11 15:05 :00 No 15mg 15 mg, Slow IV Push, ONCE, 1 dose, On 03/11/22 at 0945, [facility] proMETHazin e (PHENERGAN) 12.5 mg in NaCl 0.9% (NS) 50 mL IV piggyback 2021-05 14:45: 00 03-11 15:04 :00 No 12.5mg 12.5 mg, IV Piggyback, ONCE, 1 dose, [facility] 2021-05 00:00: 00 07-31 00:00 :00 No [id number] 25mg Take 1 tablet by mouth every 6 (six) hours as needed for Nausea and Vomiting (N/V). [facility] methocarbam oL 500 mg tablet 2021-05 00:00: 00 04-07 00:00 :00 No [id number] 500mg Take 1 tablet by mouth 3 (three) times daily as needed for Pain (scale 7-10). [facility] topiramate 25 mg tablet 2021-05 0- 00:00: 00 02-26 00:00 :00 No [id number] 100mg Take 4 tablets by mouth in [...] 2021-05 00:00: 00 02-26 00:00 :00 No [id number] 2{puff} Inhale 2 Puffs every 6 (six) [...] 2021-05 00:00: 00 03-07 04:59 :00 No [id number] 200mg Take 1 capsule by mouth 3 (three) times daily as needed for Cough for up to 7 days. [facility] butalbital- acetaminoph en-caff (ESGIC) 50-325-40 mg tablet 1 tablet 2021-05 0 08:15: 00 02-21 08:09 :00 No 1{tbl} 1 tablet, Oral, ONCE, 1 dose, On Sat02/21/22 at 0315, [facility] butorphanol (STADOL) injection 1 mg 2021-05 [...] ONCE, 1 dose, On Sat02/21/22 at 0130, [facility] dexamethaso ne sod phos PF injection 10 mg 2021-05 06:30: 00 02-21 06:38 :00 No 10mg 10 mg, Slow IV Push, ONCE, 1 dose, On Sat02/21/22 at 0130, 1 mL [facility] ketorolac (TORADOL) injection 15 mg 2021-05 06:30: 00 02-21 06:38 :00 No 15mg 15 mg, Slow IV Push, ONCE, 1 dose, On Sat02/21/22 at 0130, [facility] diphenhydrA MINE (BENADRYL) injection 25 mg 2021-05 06:30: 00 02-21 06:38 :00 No 25mg 25 mg, Slow IV Push, ONCE, 1 dose, On Sat02/21/22 at 0130, [place] [facility] FENTanyl PF (SUBLIMAZE (PF)) injection 50 mcg 2021-05 0 20:30: 00 02-18 19:44 :00 No 50ug 50 mcg, Slow IV Push, ONCE, 1 dose, On 02/18/22 at 1530, Routine [facility] ketorolac (TORADOL) injection 30 mg 2021-05 20:15: 00 02-18 20:09 :00 No 30mg 30 mg, Slow IV Push, ONCE, 1 dose, On 02/18/22 at 1515, [place] [facility] iopamidol (ISOVUE 370-500 mL) injection 60 mL 2021-05 19:30: 00 02-18 17:30 :00 No [id number] 60mL 60 mL, Intravenou s, ONCE, 1 dose, On 02/18/22 at 1430, Routine [facility] proMETHazin e (PHENERGAN) 12.5 mg in NaCl 0.9% (NS) 50 mL IV piggyback 2021-05 18:15: 00 02-18 18:19 :00 No 12.5mg 12.5 mg, IV Piggyback, ONCE, 1 dose, On 02/18/22 at 1315, [place] [facility] FENTanyl PF (SUBLIMAZE (PF)) injection 50 mcg 2021-05 18:00: 00 02-18 17:26 :00 No 50ug 50 mcg, Slow IV Push, ONCE, 1 dose, On 02/18/22 at 1300, Routine [facility] ondansetron (ZOFRAN (PF)) injection 4 mg 2021-05 17:15: 00 02-18 17:27 :00 No 4mg 4 mg, Slow IV Push, ONCE, 1 dose, On 02/18/22 at 1215, [facility] morpHINE (2 mg/mL) injection 4 mg 01-18 15:15: 00 01-18 14:49 :00 No 4mg 4 mg, Slow IV Push, ONCE, 1 dose, On Kathie 01/18/22 at 1015, [facility] ondansetron (ZOFRAN (PF)) injection 4 mg 01-18 13:30: 00 01-18 13:33 :00 No 4mg 4 mg, Slow IV Push, ONCE, 1 dose, On Kathie 01/18/22 at 0830, [facility] morpHINE (4 mg/mL) injection 4 mg 01-18 13:30: 00 01-18 13:34 :00 No 4mg 4 mg, Slow IV Push, ONCE, 1 dose, On Kathie 01/18/22 at 0830, [facility] morpHINE (4 mg/mL) injection 4 mg 01-18 12:30: 00 01-18 11:39 :00 No 4mg 4 mg, Slow IV Push, ONCE, 1 dose, On Kathie 01/18/22 at 0730, [facility] famotidine (PEPCID (PF)) injection 20 mg 01-18 [...] 01-18 11:21: 00 01-18 11:15 :00 No [id number] 80mL 80 mL, Intravenou s, ONCE, 1 dose, On Kathie 01/18/22 at 0630, Routine [facility] NaCl 0.9% (NS) bolus infusion 1,000 mL 01-18 11:15: 00 01-18 12:59 :00 No 1000mL at 999 mL/hr, 1,000 mL, IV Infusion, ONCE, 1 dose, On Kathie 01/18/22 at 0615, [facility] morpHINE (4 mg/mL) injection [...] 01-18 00:00: 00 02-27 00:00 :00 No [id number] 4mg Take 1 tablet by mouth every 8 (eight) hours as needed for Nausea and Vomiting (N/V). [facility] ibuprofen 600 mg tablet 01-18 00:00: 00 02-27 00:00 :00 No [id number] 600mg Take 1 tablet by mouth every 6 (six) hours as needed for Pain (scale 4-6). [facility] predniSONE 20 mg tablet 01-16 00:00: 00 01-24 04:59 :00 No [id number] 40mg Take 2 tablets by mouth in the morning for 7 days. [facility] morpHINE (4 mg/mL) injection 4 mg 01-15 16:15: 00 01-15 15:28 :00 No 4mg 4 mg, Slow IV Push, ONCE, 1 dose, On Sat01/15/22 at 1115, [place] [facility] proMETHazin e (PHENERGAN) 12.5 mg in NaCl 0.9% (NS) 50 mL IV piggyback 01-15 15:30: 00 01-15 15:28 :00 No 12.5mg 12.5 mg, IV Piggyback, ONCE, 1 dose, On Sat01/15/22 at 1030, [place] [facility] NaCl 0.9% (NS) [...] 01-15 00:00: 00 02-27 00:00 :00 No [id number] 25mg Take 1 tablet by mouth every [...] ONCE, 1 dose, On Sat01/08/22 at 1945, [facility] diphenhydrA MINE (BENADRYL) injection 25 [...] 01-08 00:00: 00 04-07 00:00 :00 No [id number] 650mg Take 1 tablet by mouth every 8 (eight) hours as needed for Pain. [facility] ondansetron 4 mg disintegrat ing tablet 01-08 00:00: 00 02-27 00:00 :00 No [id number] 4mg Take 1 tablet by mouth every 8 (eight) hours as needed for Nausea and Vomiting (N/V). [facility] ketorolac 10 mg tablet 01-08 00:00: 00 02-27 00:00 :00 No [id number] 10mg Take 1 tablet by mouth every 6 (six) hours as needed for Pain (scale 4-6) or Pain (scale 7-10). [facility] metaxalone (SKELAXIN) 800 mg tablet 01-08 00:00: 00 02-27 00:00 :00 No [id number] 800mg Take 1 tablet by mouth in [...] 12-12 00:00: 00 02-27 00:00 :00 No [id number] 50mg Take 1 tablet by mouth at bedtime. [facility] SERTraline (ZOLOFT) 50 mg tablet 12-12 00:00: 00 02-27 00:00 :00 No [id number] 50mg Take 1 tablet by mouth in the morning. [facility] sulfamethox azole-trime thoprim (BACTRIM DS) 800-160 mg per tablet 12-12 00:00: 00 12-16 04:59 :00 No [id number] 1{tbl} Take 1 tablet by mouth in the morning and 1 tablet in the evening. Do all this for 3 days. [facility] ibuprofen 600 mg tablet 11-24 00:00: 00 02-27 00:00 :00 No [id number] 600mg Take 1 tablet by mouth every [...] DM) 2-30-10 mg/5 mL syrup 11-18 00:00: 03-24 00:00 :00 No [id number] 5mL Take 5 mL by mouth 4 (four) times daily as needed for Congestion /Allergies or Cough. [facility] naproxen 500 mg tablet 11-18 00:00: 00 02-27 00:00 :00 No [id number] 500mg Take 1 tablet by mouth every 8 (eight) hours as needed for Pain (scale 4-6). [facility] cyclobenzap rine 10 mg tablet 11-18 00:00: 00 02-27 00:00 :00 No [id number] 10mg Take 1 tablet by mouth at bedtime as needed for Muscle Spasms. [facility] ibuprofen 100 mg/5 mL oral suspension 10-25 00:00: 00 02-27 00:00 :00 No [id number] 605mg Take 30.25 mL by mouth every 6 (six) hours as needed for Pain (scale 4-6) or Temp > 38.5 C. [facility] acetaminoph en 160 mg/5 mL liquid 10-25 00:00: 00 12-12 00:00 :00 No [id number] 608mg Take 19 mL by mouth every 6 (six) hours as needed for Fever. [facility] DULoxetine 60 mg capsule 10-06 00:00: 00 02-27 00:00 :00 No [facility] traZODone 50 mg tablet 10-06 00:00: 00 12-12 00:00 :00 No [facility] mometasone 50 mcg/actuati on nasal spray 09-28 00:00: 00 02-27 00:00 :00 No [id number] 1{spray } Use 1 Inola in each nostril 2 (two) times daily. [facility] cetirizine (ZYRTEC) 10 mg tablet 16 00:00: 00 02-27 00:00 :00 No [id number] 10mg Take 1 tablet by mouth daily. [facility] DULoxetine 30 mg capsule 09-18 00:00: 00 02-27 00:00 :00 No [facility] gabapentin 300 mg capsule 09-18 00:00: 00 02-27 00:00 :00 No [facility] ondansetron 4 mg tablet 09-18 [facility] proM[facility]azin e 25 mg tablet 05 00:00: 00 09-12 00:00 :00 No [id number] 25mg Take 1 tablet by mouth every 6 (six) hours as needed for Nausea and Vomiting (N/V). [facility] traMADoL 50 mg tablet 05 00:00: 00 09-12 00:00 :00 No [id number] 50mg Take 1 tablet by mouth every 6 (six) hours as needed (pain). Indication s: acute pain [facility] cyclobenzap rine 10 mg tablet 08-07 00:00: 00 08-22 04:59 :00 No [id number] 10mg Take 1 tablet by mouth 3 (three) times daily for 14 days. [facility] ibuprofen 800 mg tablet 08-07 00:00: 00 08-22 04:59 :00 No [id number] 800mg Take 1 tablet by mouth every 6 (six) hours as needed for Pain (scale 1-3) for up to 14 days. [facility] diclofenac 75 mg EC tablet 08-01 00:00: 00 09-12 00:00 :00 No [facility] orphenadrin e 100 mg SR tablet 08-01 00:00: 00 09-12 00:00 :00 No [facility] divalproex 125 mg EC tablet 07-21 00:00: 00 09-12 00:00 :00 No [id number] 125mg Take 1 tablet by mouth every 12 (twelve) hours. [facility] divalproex Sprinkles 125 mg SPRINKLE capsule 07-21 00:00: 00 09-12 00:00 :00 No [facility] ibuprofen 600 mg tablet 07-17 00:00: 00 08-01 04:59 :00 No [id number] 600mg Take 1 tablet by mouth [...] - 00:00: 00 09-28 00:00 :00 No [id number] 2{puff} Inhale 2 Puffs every 12 (twelve) hours. [facility] benzonatate (TESSALON PERLES) 100 mg capsule 1-13 00:00: 00 09-25 00:00 :00 No [id number] 100mg Take 1 capsule by mouth every [...] 2020-05 00:00: 00 09-12 00:00 :00 No [facility] methocarbam oL (ROBAXIN) 500 mg tablet 2020-05 00:00: 00 05-25 00:00 :00 No [id number] 500mg Take 1 tablet by mouth every 6 (six) hours as needed (MUSCLE SPASM). [facility] vitamin B-12 (VITAMIN B-12) 500 mcg tablet 2020-05 00:00: 00 09-12 00:00 :00 No [id number] 500ug Take 1 tablet by mouth daily. [facility] methylPREDN ISolone 4 mg tablets 2020-05 00:00: 00 05-25 00:00 :00 No [id number] Follow package directions [facility] fluticasone propion-chel meteroL 115-21 mcg/actuati on inhaler 02-09 00:00: 00 05-25 00:00 :00 No [id number] 2{puff} Inhale 2 Puffs 2 (two) times daily. Rinse mouth after each use. [facility] albuterol 2.5 mg /3 mL (0.083 %) nebulizer solution 02-09 00:00: 00 05-25 00:00 :00 No [id number] 2.5mg Inhale 3 mL every 6 (six) hours as needed for Wheezing or Shortness of Breath. [facility] methocarbam oL (ROBAXIN) 500 mg tablet 02-09 00:00: 00 05-02 00:00 :00 No [id number] 500mg Take 1 tablet by mouth every 6 (six) hours as needed (MUSCLE SPASM). [facility] bromphenira mine-pseudo ephedrine-D M (BROMFED DM) 2-30-10 mg/5 mL syrup 01-31 00:00: 00 02-09 00:00 :00 No [id number] 5mL Take 5 mL by mouth 4 (four) times daily as needed for Cough. [facility] methylPREDN ISolone (MEDROL, ANABELA,) 4 mg tablets 01-20 00:00: 00 02-09 00:00 :00 No [id number] Take by mouth SEE-INSTRU CTIONS. follow package directions [facility] albuterol 90 mcg/actuati on inhaler 01-12 00:00: 00 05-25 00:00 :00 No [id number] 2{puff} Inhale 2 Puffs every 4 (four) hours as needed for Wheezing or Shortness of Breath. [facility] benzonatate 100 mg capsule 01-12 00:00: 00 02-19 00:00 :00 No [id number] 100mg Take 1 capsule by mouth 3 [...] [facility] dicyclomine 20 mg tablet 6-10 00:00: 00 12-26 00:00 :00 No [id number] 20mg Take 1 tablet by mouth 4 (four) times daily. [facility] proMETHazin e 25 mg tablet 6-10 00:00: 00 12-26 00:00 :00 No [id number] 25mg Take 1 tablet by mouth every 6 (six) hours as needed for Nausea and Vomiting (N/V). [facility] acetaminoph en-codeine 300-30 mg tablet 6-05 00:00: 00 12-26 00:00 :00 No TAKE 2 TABLETS BY MOUTH EVERY 6 HOURS NEEDED FOR PAIN [facility] oxybutynin (DITROPAN XL) 10 mg 24 hr tablet 30 00:00: 00 12-26 00:00 :00 No [id number] 10mg Take 1 tablet by mouth daily. [facility] ondansetron (ZOFRAN ODT) 4 mg disintegrat ing tablet 10-09 00:00: 00 12-26 00:00 :00 No [id number] 4mg Take 1 tablet by mouth every 8 (eight) hours as needed for Nausea and Vomiting (N/V). [facility] ciprofloxac in HCl 500 mg tablet 30 00:00: 00 11-22 00:00 :00 No [id number] 500mg Take 1 tablet by mouth 2 (two) times daily. [facility] predniSONE 20 mg tablet 25 00:00: 00 11-22 00:00 :00 No [id number] 20mg Take 1 tablet by mouth daily. Days 1-2: 3 pills (60 mg). Days 3-4: 2 pills (40 mg). Days 5-6: 1 pill (20 mg). Days 7-8: 1/2 pill (10 mg). Then stop [facility] mupirocin 2 % ointment 20 00:00: 00 12-26 00:00 :00 No [id number] Apply to both nostrils at bedtime [facility] naproxen sodium (ANAPROX DS) 550 mg tablet 09-28 00:00: 00 12-26 00:00 :00 No [id number] 550mg Take 1 tablet by mouth 2 (two) times daily with meals. [facility] losartan 25 mg tablet 09-16 00:00: 00 12-22 00:00 :00 No 25mg Take 1 tablet by mouth 2 (two) times daily. [facility] nadoloL 20 mg tablet 09-16 00:00: 00 12-22 00:00 :00 No [id number] Please take Nadalol 40 mg QAM [facility] LOESTRIN FE (LOESTRIN FE 1/20) 1 mg-20 mcg (21)/75 mg (7) tablet 09-06 00:00: 00 02-09 00:00 :00 No [id number] 1{tbl} Take 1 tablet by mouth daily. [facility] FLUoxetine 20 mg capsule 09-06 00:00: 00 11-22 00:00 :00 No [id number] 20mg Take 1 capsule by mouth daily. [facility] traZODone 50 mg tablet 09-06 00:00: 00 11-22 00:00 :00 No [id number] 50mg Take 1 tablet by mouth at bedtime. [facility] nadoloL 20 mg tablet 08-31 00:00: 00 09-16 00:00 :00 No [id number] Please take Nadalol 40 mg QAM and 20 mg QPM [facility] methocarbam oL (ROBAXIN) 500 mg tablet 08-18 00:00: 00 09-30 00:00 :00 No [id number] 500mg Take 1 tablet by mouth every 6 (six) hours as needed (MUSCLE SPASM). [facility] traMADoL (ULTRAM) 50 mg tablet 08-18 00:00: 00 09-30 00:00 :00 No [id number] 50mg Take 1 tablet by mouth every 6 (six) hours as needed for Pain (scale 7-10). Indication s: acute pain [facility] ibuprofen 800 mg tablet 4-04 00:00: 00 11-22 00:00 :00 No TAKE 1 TABLET BY MOUTH EVERY 12 HOURS NEEDED FOR PAIN [facility] ondansetron (ZOFRAN ODT) 4 mg disintegrat ing tablet 08-01 00:00: 00 09-30 00:00 :00 No [id number] 4mg Take 1 tablet by mouth every 8 (eight) hours as needed for Nausea and Vomiting (N/V). [facility] ketorolac 10 mg tablet 08-01 00:00: 00 09-30 00:00 :00 No [id number] 10mg Take 1 tablet by mouth every 6 (six) hours as needed for Pain (scale 4-6). [facility] ciprofloxac in HCl 250 mg tablet 08-01 00:00: 00 09-30 00:00 :00 No [id number] 250mg Take 1 tablet by mouth 2 (two) times daily. [facility] lidocaine 5 % (700 mg/patch) patch 07-22 00:00: 00 09-30 00:00 :00 No [id number] 1{patch } Apply 1 Patch to area(s) every 24 (twenty-fo ur) hours as needed for Localized pain. [facility] topiramate 25 mg tablet 105 00:00: 00 11-22 00:00 :00 No 25mg Take 1 tablet by mouth 2 (two) times daily. [facility] metoprolol succinate XL 25 mg 24 hr tablet 2019-05 00:00: 00 06-15 00:00 :00 No [id number] 12.5mg Take 0.5 tablets by mouth 2 (two) times daily for 90 days. [facility] FLUoxetine 20 mg capsule 2019-05 00:00: 00 09-06 00:00 :00 No 20mg Take 20 mg by mouth daily. [facility] norgestimat e-ethinyl estradiol 0.25-35 mg-mcg per tablet 7-08 00:00: 04-15 00:00 :00 No [id number] 1{tbl} Take 1 tablet by mouth daily. [facility] buPROPion XL (WELLBUTRIN XL) 150 mg 24 hr tablet 4-02 00:00: 01-04 00:00 :00 No [id number] 150mg Take 1 tablet by mouth daily. [facility] acetaminoph en 325 mg tablet 07-22 00:00: 01-04 00:00 :00 No [id number] 650mg Take 2 tablets by mouth every 6 (six) hours as needed for Pain (scale 1-3) or Pain (scale 4-6). [facility] vitamin w/FA tablet 07-22 00:00: 01-04 00:00 :00 No [id number] 1{tbl} Take 1 tablet by mouth daily. [facility] docusate calcium 240 mg capsule 07-22 00:00: 01-04 00:00 :00 No [id number] 240mg Take 1 capsule by mouth once daily as needed for Constipati on. [facility] ferrous sulfate 325 mg (65 mg iron) tablet 07-22 00:00: 01-04 00:00 :00 No [id number] 325mg Take 1 tablet by mouth 2 (two) times daily. [facility] ibuprofen 600 mg tablet 07-22 00:00: 01-04 00:00 :00 No [id number] 600mg Take 1 tablet by mouth every 6 (six) hours as needed (Pain). Take with food or milk. [facility] ALBUTEROL 90 mcg/actuati on inhaler 1-14 00:00: 00 05-01 00:00 :00 No [id number] 103 INHALE 2 PUFFS BY MOUTH EVERY 6 HOURS NEEDED FOR WHEEZING FOR SHORTNESS OF BREATH [facility] buPROPion SR (WELLBUTRIN SR) 150 mg SR tablet 1-09 00:00: 00 01-04 00:00 :00 No [id number] 150mg Take 1 tablet by mouth 2 (two) times daily. [facility] busPIRone 10 mg tablet 05-21 00:00: 00 01-04 00:00 :00 No [id number] 109 10mg Take 1 tablet by mouth 3 (three) times daily. [facility] Immunizations Ordered Immunization Name Filled Immunization Name Date Status Comments Source Influenza Virus Vaccine Quad IM, Preserv and ABX Free 6 MO-64 YRS 2022-02-27 00:00:00 Completed [facility] Influenza Virus Vaccine Quad IM, Preserv and ABX Free 6 MO-64 YRS 2022-02-27 00:00:00 Completed [facility] Influenza Virus Vaccine Quad IM, Preserv and ABX Free 6 MO-64 YRS 2022-02-27 00:00:00 Completed [facility] Influenza Virus Vaccine Quad IM, Preserv and ABX Free 6 MO-64 YRS 2022-02-27 00:00:00 Completed [facility] Influenza Virus Vaccine Quad IM, Preserv and ABX Free 6 MO-64 YRS 2022-02-27 00:00:00 Completed [facility] Influenza Virus Vaccine Quad IM, Preserv and ABX Free 6 MO-64 YRS 2022-02-27 00:00:00 Completed [facility] Influenza Virus Vaccine Quad IM, Preserv and ABX Free 6 MO-64 YRS 2022-02-27 00:00:00 Completed [facility] Influenza Virus Vaccine Quad IM, Preserv and ABX Free 6 MO-64 YRS 2022-02-27 00:00:00 Completed [facility] Influenza Virus Vaccine Quad IM, Preserv and ABX Free 6 MO-64 YRS 2022-02-27 00:00:00 Completed [facility] Influenza Virus Vaccine Quad IM, Preserv and ABX Free 6 MO-64 YRS 2022-02-27 00:00:00 Completed [facility] Influenza Virus Vaccine Quad IM, Preserv and ABX Free 6 MO-64 YRS 2022-02-27 00:00:00 Completed [facility] Influenza Virus Vaccine Quad IM, Preserv and ABX Free 6 MO-64 YRS 2022-02-27 00:00:00 Completed [facility] Influenza Virus Vaccine Quad IM, Preserv and ABX Free 6 MO-64 YRS 2022-02-27 00:00:00 Completed [facility] Influenza Virus Vaccine Quad IM, Preserv and ABX Free 6 MO-64 YRS 2022-02-27 00:00:00 Completed [facility] Influenza Virus Vaccine Quad IM, Preserv and ABX Free 6 MO-64 YRS 2022-02-27 00:00:00 Completed [facility] Influenza Virus Vaccine Quad IM, Preserv and ABX Free 6 MO-64 YRS 2022-02-27 00:00:00 Completed [facility] Influenza Virus Vaccine Quad IM, Preserv and ABX Free 6 MO-64 YRS 2022-02-27 00:00:00 Completed [facility] Influenza Virus Vaccine Quad IM, Preserv and ABX Free 6 MO-64 YRS 2022-02-27 00:00:00 Completed [facility] Influenza Virus Vaccine Quad IM, Preserv and ABX Free 6 MO-64 YRS 2022-02-27 00:00:00 Completed [facility] Influenza Virus Vaccine Quad IM, Preserv and ABX Free 6 MO-64 YRS 2022-02-27 00:00:00 Completed [facility] Influenza Virus Vaccine Quad IM, Preserv and ABX Free 6 MO-64 YRS 2022-02-27 00:00:00 Completed [facility] Influenza Virus Vaccine Quad IM, Preserv and ABX Free 6 MO-64 YRS 2022-02-27 00:00:00 Completed [facility] Influenza Virus Vaccine Quad IM, Preserv and ABX Free 6 MO-64 YRS 2022-02-27 00:00:00 Completed [facility] Influenza Virus Vaccine Quad IM, Preserv and ABX Free 6 MO-64 YRS 2022-02-27 00:00:00 Completed [facility] Influenza Virus Vaccine Quad IM, Preserv and ABX Free 6 MO-64 YRS 2022-02-27 00:00:00 Completed [facility] Influenza Virus Vaccine Quad IM, Preserv and ABX Free 6 MO-64 YRS 2022-02-27 00:00:00 Completed [facility] Influenza Virus Vaccine Quad IM, Preserv and ABX Free 6 MO-64 YRS 2022-02-27 00:00:00 Completed [facility] Influenza Virus Vaccine Quad IM, Preserv and ABX Free 6 MO-64 YRS 2022-02-27 00:00:00 Completed [facility] Influenza Virus Vaccine Quad IM, Preserv and ABX Free 6 MO-64 YRS 2022-02-27 00:00:00 Completed [facility] Influenza Virus Vaccine Quad IM, Preserv and ABX Free 6 MO-64 YRS 2022-02-27 00:00:00 Completed [facility] Influenza Virus Vaccine Quad IM, Preserv and ABX Free 6 MO-64 YRS 2022-02-27 00:00:00 Completed [facility] Influenza Virus Vaccine Quad IM, Preserv and ABX Free 6 MO-64 YRS 2022-02-27 00:00:00 Completed [facility] Influenza Virus Vaccine Quad IM, Preserv and ABX Free 6 MO-64 YRS 2022-02-27 00:00:00 Completed [facility] Influenza Virus Vaccine Quad IM, Preserv and ABX Free 6 MO-64 YRS 2022-02-27 00:00:00 Completed [facility] Influenza Virus Vaccine Quad IM, Preserv and ABX Free 6 MO-64 YRS 2022-02-27 00:00:00 Completed [facility] Influenza Virus Vaccine Quad IM, Preserv and ABX Free 6 MO-64 YRS 2022-02-27 00:00:00 Completed [facility] Influenza Virus Vaccine Quad IM, Preserv and ABX Free 6 MO-64 YRS 2022-02-27 00:00:00 Completed [facility] Influenza Virus Vaccine Quad IM, Preserv and ABX Free 6 MO-64 YRS 2022-02-27 00:00:00 Completed [facility] Influenza Virus Vaccine Quad IM, Preserv and ABX Free 6 MO-64 YRS 2022-02-27 00:00:00 Completed [facility] Influenza Virus Vaccine Quad IM, Preserv and ABX Free 6 MO-64 YRS 2022-02-27 00:00:00 Completed [facility] Influenza Virus Vaccine Quad IM, Preserv and ABX Free 6 MO-64 YRS 2022-02-27 00:00:00 Completed [facility] Influenza Virus Vaccine Quad IM, Preserv and ABX Free 6 MO-64 YRS (FLUCELVAX) 2022-02-27 00:00:00 Completed [facility] Influenza Virus Vaccine Quad IM, Preserv and ABX Free 6 MO-64 YRS (FLUCELVAX) 2022-02-27 00:00:00 Completed [facility] Influenza Virus Vaccine Quad IM, Preserv and ABX Free 6 MO-64 YRS (FLUCELVAX) 2022-02-27 00:00:00 Completed [facility] Influenza Virus Vaccine Quad .5 mL IM 6+ MO 2022-02-21 00:00:00 Completed [facility] Influenza Virus Vaccine Quad .5 mL IM 6+ MO 2022-02-21 00:00:00 Completed [facility] Influenza Virus Vaccine Quad .5 mL IM 6+ MO 2022-02-21 00:00:00 Completed [facility] Influenza Virus Vaccine Quad .5 mL IM 6+ MO 2022-02-21 00:00:00 Completed [facility] Influenza Virus Vaccine Quad .5 mL IM 6+ MO 2022-02-21 00:00:00 Completed [facility] Influenza Virus Vaccine Quad .5 mL IM 6+ MO 2022-02-21 00:00:00 Completed [facility] Influenza Virus Vaccine Quad .5 mL IM 6+ MO 2022-02-21 00:00:00 Completed [facility] Influenza Virus Vaccine Quad .5 mL IM 6+ MO 2022-02-21 00:00:00 Completed [facility] Influenza Virus Vaccine Quad .5 mL IM 6+ MO 2022-02-21 00:00:00 Completed [facility] Influenza Virus Vaccine Quad .5 mL IM 6+ MO 2022-02-21 00:00:00 Completed [facility] Influenza Virus Vaccine Quad .5 mL IM 6+ MO 2022-02-21 00:00:00 Completed [facility] Influenza Virus Vaccine Quad .5 mL IM 6+ MO 2022-02-21 00:00:00 Completed [facility] Influenza Virus Vaccine Quad .5 mL IM 6+ MO (FLUZONE/FLULAVAL/F LUARIX) 2022-02-21 00:00:00 Completed [facility] Influenza Virus Vaccine Quad .5 mL IM 6+ MO (FLUZONE/FLULAVAL/F LUARIX) 2022-02-21 00:00:00 Completed [facility] Influenza Virus Vaccine Quad .5 mL IM 6+ MO (FLUZONE/FLULAVAL/F LUARIX) 2022-02-21 00:00:00 Completed [facility] Influenza Virus Vaccine 2021-06-11 00:00:00 Completed [facility] Influenza Virus Vaccine 2021-06-11 00:00:00 Completed [facility] Influenza Virus Vaccine 2021-06-11 00:00:00 Completed [facility] Influenza Virus Vaccine 2021-06-11 00:00:00 Completed [facility] Influenza Virus Vaccine 2021-06-11 00:00:00 Completed [facility] Influenza Virus Vaccine 2021-06-11 00:00:00 Completed [facility] Influenza Virus Vaccine 2021-06-11 00:00:00 Completed [facility] Influenza Virus Vaccine 2021-06-11 00:00:00 Completed [facility] Influenza Virus Vaccine 2021-06-11 00:00:00 Completed [facility] Influenza Virus Vaccine 2021-06-11 00:00:00 Completed [facility] Influenza Virus Vaccine 2021-06-11 00:00:00 Completed [facility] Influenza Virus Vaccine 2021-06-11 00:00:00 Completed [facility] Influenza Virus Vaccine 2021-06-11 00:00:00 Completed [facility] Influenza Virus Vaccine 2021-06-11 00:00:00 Completed [facility] Influenza Virus Vaccine 2021-06-11 00:00:00 Completed [facility] Influenza Virus Vaccine 2021-06-11 00:00:00 Completed [facility] Influenza Virus Vaccine 2021-06-11 00:00:00 Completed [facility] Influenza Virus Vaccine 2021-06-11 00:00:00 Completed [facility] Influenza Virus Vaccine 2021-06-11 00:00:00 Completed [facility] Influenza Virus Vaccine 2021-06-11 00:00:00 Completed [facility] Influenza Virus Vaccine 2021-06-11 00:00:00 Completed [facility] Influenza Virus Vaccine 2021-06-11 00:00:00 Completed [facility] Influenza Virus Vaccine 2021-06-11 00:00:00 Completed [facility] Influenza Virus Vaccine 2021-06-11 00:00:00 Completed [facility] Influenza Virus Vaccine 2021-06-11 00:00:00 Completed [facility] Influenza Virus Vaccine 2021-06-11 00:00:00 Completed [facility] Influenza Virus Vaccine 2021-06-11 00:00:00 Completed [facility] Influenza Virus Vaccine 2021-06-11 00:00:00 Completed [facility] Influenza Virus Vaccine 2021-06-11 00:00:00 Completed [facility] Influenza Virus Vaccine 2021-06-11 00:00:00 Completed [facility] Influenza Virus Vaccine 2021-06-11 00:00:00 Completed [facility] Influenza Virus Vaccine 2021-06-11 00:00:00 Completed [facility] Influenza Virus Vaccine 2021-06-11 00:00:00 Completed [facility] Influenza Virus Vaccine 2021-06-11 00:00:00 Completed [facility] Influenza Virus Vaccine 2021-06-11 00:00:00 Completed [facility] Influenza Virus Vaccine 2021-06-11 00:00:00 Completed [facility] Influenza Virus Vaccine 2021-06-11 00:00:00 Completed [facility] Influenza Virus Vaccine 2021-06-11 00:00:00 Completed [facility] Influenza Virus Vaccine 2021-06-11 00:00:00 Completed [facility] Influenza Virus Vaccine 2021-06-11 00:00:00 Completed [facility] Influenza Virus Vaccine 2021-06-11 00:00:00 Completed [facility] Influenza Virus Vaccine Quad .5 mL IM 6+ MO 2021-06-11 00:00:00 Completed [facility] Influenza Virus Vaccine 2021-06-11 00:00:00 Completed [facility] Influenza Virus Vaccine Quad .5 mL IM 6+ MO 2021-06-11 00:00:00 Completed [facility] Influenza Virus Vaccine 2021-06-11 00:00:00 Completed [facility] Influenza Virus Vaccine Quad .5 mL IM 6+ MO 2021-06-11 00:00:00 Completed [facility] Influenza Virus Vaccine 2021-06-11 00:00:00 Completed [facility] Influenza Virus Vaccine Quad .5 mL IM 6+ MO 2021-06-11 00:00:00 Completed [facility] Influenza Virus Vaccine 2021-06-11 00:00:00 Completed [facility] Influenza Virus Vaccine Quad .5 mL IM 6+ MO 2021-06-11 00:00:00 Completed [facility] Influenza Virus Vaccine 2021-06-11 00:00:00 Completed [facility] Influenza Virus Vaccine Quad .5 mL IM 6+ MO 2021-06-11 00:00:00 Completed [facility] Influenza Virus Vaccine 2021-06-11 00:00:00 Completed [facility] Influenza Virus Vaccine Quad .5 mL IM 6+ MO 2021-06-11 00:00:00 Completed [facility] Influenza Virus Vaccine 2021-06-11 00:00:00 Completed [facility] Influenza Virus Vaccine Quad .5 mL IM 6+ MO 2021-06-11 00:00:00 Completed [facility] Influenza Virus Vaccine 2021-06-11 00:00:00 Completed [facility] Influenza Virus Vaccine Quad .5 mL IM 6+ MO 2021-06-11 00:00:00 Completed [facility] Influenza Virus Vaccine 2021-06-11 00:00:00 Completed [facility] Influenza Virus Vaccine Quad .5 mL IM 6+ MO 2021-06-11 00:00:00 Completed [facility] Influenza Virus Vaccine 2021-06-11 00:00:00 Completed [facility] Influenza Virus Vaccine Quad .5 mL IM 6+ MO 2021-06-11 00:00:00 Completed [facility] Influenza Virus Vaccine 2021-06-11 00:00:00 Completed [facility] Influenza Virus Vaccine Quad .5 mL IM 6+ MO 2021-06-11 00:00:00 Completed [facility] Influenza Virus Vaccine 2021-06-11 00:00:00 Completed [facility] Influenza Virus Vaccine Quad .5 mL IM 6+ MO (FLUZONE/FLULAVAL/F LUARIX) 2021-06-11 00:00:00 Completed [facility] Influenza Virus Vaccine 2021-06-11 00:00:00 Completed [facility] Influenza Virus Vaccine Quad .5 mL IM 6+ MO (FLUZONE/FLULAVAL/F LUARIX) 2021-06-11 00:00:00 Completed [facility] Influenza Virus Vaccine 2021-06-11 00:00:00 Completed [facility] Influenza Virus Vaccine Quad .5 mL IM 6+ MO (FLUZONE/FLULAVAL/F LUARIX) 2021-06-11 00:00:00 Completed [facility] Influenza Virus Vaccine 2020-05-19 00:00:00 Completed [facility] Influenza Virus Vaccine 2020-05-19 00:00:00 Completed [facility] Influenza Virus Vaccine 2020-05-19 00:00:00 Completed [facility] Influenza Virus Vaccine 2020-05-19 00:00:00 Completed [facility] Influenza Virus Vaccine 2020-05-19 00:00:00 Completed [facility] Influenza Virus Vaccine 2020-05-19 00:00:00 Completed [facility] Influenza Virus Vaccine 2020-05-19 00:00:00 Completed [facility] Influenza Virus Vaccine 2020-05-19 00:00:00 Completed [facility] Influenza Virus Vaccine 2020-05-19 00:00:00 Completed [facility] Influenza Virus Vaccine 2020-05-19 00:00:00 Completed [facility] Influenza Virus Vaccine 2020-05-19 00:00:00 Completed [facility] Influenza Virus Vaccine 2020-05-19 00:00:00 Completed [facility] Influenza Virus Vaccine 2020-05-19 00:00:00 Completed [facility] Influenza Virus Vaccine 2020-05-19 00:00:00 Completed [facility] Influenza Virus Vaccine 2020-05-19 00:00:00 Completed [facility] Influenza Virus Vaccine 2020-05-19 00:00:00 Completed [facility] Influenza Virus Vaccine 2020-05-19 00:00:00 Completed [facility] Influenza Virus Vaccine 2020-05-19 00:00:00 Completed [facility] Influenza Virus Vaccine 2020-05-19 00:00:00 Completed [facility] Influenza Virus Vaccine 2020-05-19 00:00:00 Completed [facility] Influenza Virus Vaccine 2020-05-19 00:00:00 Completed [facility] Influenza Virus Vaccine 2020-05-19 00:00:00 Completed [facility] Influenza Virus Vaccine 2020-05-19 00:00:00 Completed [facility] Influenza Virus Vaccine 2020-05-19 00:00:00 Completed [facility] Influenza Virus Vaccine 2020-05-19 00:00:00 Completed [facility] Influenza Virus Vaccine 2020-05-19 00:00:00 Completed [facility] Influenza Virus Vaccine 2020-05-19 00:00:00 Completed [facility] Influenza Virus Vaccine 2020-05-19 00:00:00 Completed [facility] Influenza Virus Vaccine 2020-05-19 00:00:00 Completed [facility] Influenza Virus Vaccine 2020-05-19 00:00:00 Completed [facility] Influenza Virus Vaccine 2020-05-19 00:00:00 Completed [facility] Influenza Virus Vaccine 2020-05-19 00:00:00 Completed [facility] Influenza Virus Vaccine 2020-05-19 00:00:00 Completed [facility] Influenza Virus Vaccine 2020-05-19 00:00:00 Completed [facility] Influenza Virus Vaccine 2020-05-19 00:00:00 Completed [facility] Influenza Virus Vaccine 2020-05-19 00:00:00 Completed [facility] Influenza Virus Vaccine 2020-05-19 00:00:00 Completed [facility] Influenza Virus Vaccine 2020-05-19 00:00:00 Completed [facility] Influenza Virus Vaccine 2020-05-19 00:00:00 Completed [facility] Influenza Virus Vaccine 2020-05-19 00:00:00 Completed [facility] Influenza Virus Vaccine 2020-05-19 00:00:00 Completed [facility] Influenza Virus Vaccine 2020-05-19 00:00:00 Completed [facility] Influenza Virus Vaccine 2020-05-19 00:00:00 Completed [facility] Influenza Virus Vaccine 2020-05-19 00:00:00 Completed [facility] Influenza Virus Vaccine 2020-05-19 00:00:00 Completed [facility] Influenza Virus Vaccine 2020-05-19 00:00:00 Completed [facility] Influenza Virus Vaccine 2020-05-19 00:00:00 Completed [facility] Influenza Virus Vaccine 2020-05-19 00:00:00 Completed [facility] Influenza Virus Vaccine 2020-05-19 00:00:00 Completed [facility] Influenza Virus Vaccine 2020-05-19 00:00:00 Completed [facility] Influenza Virus Vaccine 2020-05-19 00:00:00 Completed [facility] Influenza Virus Vaccine 2020-05-19 00:00:00 Completed [facility] Influenza Virus Vaccine 2020-05-19 00:00:00 Completed [facility] Influenza Virus Vaccine 2020-05-19 00:00:00 Completed [facility] Influenza Virus Vaccine 2020-05-19 00:00:00 Completed [facility] Influenza Virus Vaccine Recomb Quad IM, Preserv and ABX Free 18-64 YRS 2020-05-16 00:00:00 Completed [facility] Influenza Virus Vaccine Recomb Quad IM, Preserv and ABX Free 18-64 YRS 2020-05-16 00:00:00 Completed [facility] Influenza Virus Vaccine Recomb Quad IM, Preserv and ABX Free 18-64 YRS 2020-05-16 00:00:00 Completed [facility] Influenza Virus Vaccine Recomb Quad IM, Preserv and ABX Free 18-64 YRS 2020-05-16 00:00:00 Completed [facility] Influenza Virus Vaccine Recomb Quad IM, Preserv and ABX Free 18-64 YRS 2020-05-16 00:00:00 Completed [facility] Influenza Virus Vaccine Recomb Quad IM, Preserv and ABX Free 18-64 YRS 2020-05-16 00:00:00 Completed [facility] Influenza Virus Vaccine Recomb Quad IM, Preserv and ABX Free 18-64 YRS 2020-05-16 00:00:00 Completed [facility] Influenza Virus Vaccine Recomb Quad IM, Preserv and ABX Free 18-64 YRS 2020-05-16 00:00:00 Completed [facility] Influenza Virus Vaccine Recomb Quad IM, Preserv and ABX Free 18-64 YRS 2020-05-16 00:00:00 Completed [facility] Influenza Virus Vaccine Recomb Quad IM, Preserv and ABX Free 18-64 YRS 2020-05-16 00:00:00 Completed [facility] Influenza Virus Vaccine Recomb Quad IM, Preserv and ABX Free 18-64 YRS 2020-05-16 00:00:00 Completed [facility] Influenza Virus Vaccine Recomb Quad IM, Preserv and ABX Free 18-64 YRS 2020-05-16 00:00:00 Completed [facility] Influenza Virus Vaccine Recomb Quad IM, Preserv and ABX Free 18-64 YRS 2020-05-16 00:00:00 Completed [facility] Influenza Virus Vaccine Recomb Quad IM, Preserv and ABX Free 18-64 YRS 2020-05-16 00:00:00 Completed [facility] Influenza Virus Vaccine Recomb Quad IM, Preserv and ABX Free 18-64 YRS 2020-05-16 00:00:00 Completed [facility] Influenza Virus Vaccine Recomb Quad IM, Preserv and ABX Free 18-64 YRS 2020-05-16 00:00:00 Completed [facility] Influenza Virus Vaccine Recomb Quad IM, Preserv and ABX Free 18-64 YRS 2020-05-16 00:00:00 Completed [facility] Influenza Virus Vaccine Recomb Quad IM, Preserv and ABX Free 18-64 YRS 2020-05-16 00:00:00 Completed [facility] Influenza Virus Vaccine Recomb Quad IM, Preserv and ABX Free 18-64 YRS 2020-05-16 00:00:00 Completed [facility] Influenza Virus Vaccine Recomb Quad IM, Preserv and ABX Free 18-64 YRS 2020-05-16 00:00:00 Completed [facility] Influenza Virus Vaccine Recomb Quad IM, Preserv and ABX Free 18-64 YRS 2020-05-16 00:00:00 Completed [facility] Influenza Virus Vaccine Recomb Quad IM, Preserv and ABX Free 18-64 YRS 2020-05-16 00:00:00 Completed [facility] Influenza Virus Vaccine Recomb Quad IM, Preserv and ABX Free 18-64 YRS 2020-05-16 00:00:00 Completed [facility] Influenza Virus Vaccine Recomb Quad IM, Preserv and ABX Free 18-64 YRS 2020-05-16 00:00:00 Completed [facility] Influenza Virus Vaccine Recomb Quad IM, Preserv and ABX Free 18-64 YRS 2020-05-16 00:00:00 Completed [facility] Influenza Virus Vaccine Recomb Quad IM, Preserv and ABX Free 18-64 YRS 2020-05-16 00:00:00 Completed [facility] Influenza Virus Vaccine Recomb Quad IM, Preserv and ABX Free 18-64 YRS 2020-05-16 00:00:00 Completed [facility] Influenza Virus Vaccine Recomb Quad IM, Preserv and ABX Free 18-64 YRS 2020-05-16 00:00:00 Completed [facility] Influenza Virus Vaccine Recomb Quad IM, Preserv and ABX Free 18-64 YRS 2020-05-16 00:00:00 Completed [facility] Influenza Virus Vaccine Recomb Quad IM, Preserv and ABX Free 18-64 YRS 2020-05-16 00:00:00 Completed [facility] Influenza Virus Vaccine Recomb Quad IM, Preserv and ABX Free 18-64 YRS 2020-05-16 00:00:00 Completed [facility] Influenza Virus Vaccine Recomb Quad IM, Preserv and ABX Free 18-64 YRS 2020-05-16 00:00:00 Completed [facility] Influenza Virus Vaccine Recomb Quad IM, Preserv and ABX Free 18-64 YRS 2020-05-16 00:00:00 Completed [facility] Influenza Virus Vaccine Recomb Quad IM, Preserv and ABX Free 18-64 YRS 2020-05-16 00:00:00 Completed [facility] Influenza Virus Vaccine Recomb Quad IM, Preserv and ABX Free 18-64 YRS 2020-05-16 00:00:00 Completed [facility] Influenza Virus Vaccine Recomb Quad IM, Preserv and ABX Free 18-64 YRS 2020-05-16 00:00:00 Completed [facility] Influenza Virus Vaccine Recomb Quad IM, Preserv and ABX Free 18-64 YRS 2020-05-16 00:00:00 Completed [facility] Influenza Virus Vaccine Recomb Quad IM, Preserv and ABX Free 18-64 YRS 2020-05-16 00:00:00 Completed [facility] Influenza Virus Vaccine Recomb Quad IM, Preserv and ABX Free 18-64 YRS 2020-05-16 00:00:00 Completed [facility] Influenza Virus Vaccine Recomb Quad IM, Preserv and ABX Free 18-64 YRS 2020-05-16 00:00:00 Completed [facility] Influenza Virus Vaccine Recomb Quad IM, Preserv and ABX Free 18-64 YRS 2020-05-16 00:00:00 Completed [facility] Influenza Virus Vaccine Recomb Quad IM, Preserv and ABX Free 18-64 YRS 2020-05-16 00:00:00 Completed [facility] Influenza Virus Vaccine Recomb Quad IM, Preserv and ABX Free 18-64 YRS 2020-05-16 00:00:00 Completed [facility] Influenza Virus Vaccine Recomb Quad IM, Preserv and ABX Free 18-64 YRS 2020-05-16 00:00:00 Completed [facility] Influenza Virus Vaccine Recomb Quad IM, Preserv and ABX Free 18-64 YRS 2020-05-16 00:00:00 Completed [facility] Influenza Virus Vaccine Recomb Quad IM, Preserv and ABX Free 18-64 YRS 2020-05-16 00:00:00 Completed [facility] Influenza Virus Vaccine Recomb Quad IM, Preserv and ABX Free 18-64 YRS 2020-05-16 00:00:00 Completed [facility] Influenza Virus Vaccine Recomb Quad IM, Preserv and ABX Free 18-64 YRS 2020-05-16 00:00:00 Completed [facility] Influenza Virus Vaccine Recomb Quad IM, Preserv and ABX Free 18-64 YRS 2020-05-16 00:00:00 Completed [facility] Influenza Virus Vaccine Recomb Quad IM, Preserv and ABX Free 18-64 YRS 2020-05-16 00:00:00 Completed [facility] Influenza Virus Vaccine Recomb Quad IM, Preserv and ABX Free 18-64 YRS 2020-05-16 00:00:00 Completed [facility] Influenza Virus Vaccine Recomb Quad IM, Preserv and ABX Free 18-64 YRS 2020-05-16 00:00:00 Completed [facility] Influenza Virus Vaccine Recomb Quad IM, Preserv and ABX Free 18-64 YRS 2020-05-16 00:00:00 Completed [facility] Influenza Virus Vaccine Recomb Quad IM, Preserv and ABX Free 18-64 YRS 2020-05-16 00:00:00 Completed [facility] Influenza Virus Vaccine Recomb Quad IM, Preserv and ABX Free 18-64 YRS 2020-05-16 00:00:00 Completed [facility] TDAP (ADACEL) VACCINE 2019-05-21 00:00:00 Completed [facility] TDAP (ADACEL) VACCINE 2019-05-21 00:00:00 Completed [facility] TDAP (ADACEL) VACCINE 2019-05-21 00:00:00 Completed [facility] TDAP (ADACEL) VACCINE 2019-05-21 00:00:00 Completed [facility] TDAP (ADACEL) VACCINE 2019-05-21 00:00:00 Completed [facility] TDAP (ADACEL) VACCINE 2019-05-21 00:00:00 Completed [facility] TDAP (ADACEL) VACCINE 2019-05-21 00:00:00 Completed [facility] TDAP (ADACEL) VACCINE 2019-05-21 00:00:00 Completed [facility] TDAP (ADACEL) VACCINE 2019-05-21 00:00:00 Completed [facility] TDAP (ADACEL) VACCINE 2019-05-21 00:00:00 Completed [facility] TDAP (ADACEL) VACCINE 2019-05-21 00:00:00 Completed [facility] TDAP (ADACEL) VACCINE 2019-05-21 00:00:00 Completed [facility] TDAP (ADACEL) VACCINE 2019-05-21 00:00:00 Completed [facility] TDAP (ADACEL) VACCINE 2019-05-21 00:00:00 Completed [facility] TDAP (ADACEL) VACCINE 2019-05-21 00:00:00 Completed [facility] TDAP (ADACEL) VACCINE 2019-05-21 00:00:00 Completed [facility] TDAP (ADACEL) VACCINE 2019-05-21 00:00:00 Completed [facility] TDAP (ADACEL) VACCINE 2019-05-21 00:00:00 Completed [facility] TDAP (ADACEL) VACCINE 2019-05-21 00:00:00 Completed [facility] TDAP (ADACEL) VACCINE 2019-05-21 00:00:00 Completed [facility] TDAP (ADACEL) VACCINE 2019-05-21 00:00:00 Completed [facility] TDAP (ADACEL) VACCINE 2019-05-21 00:00:00 Completed [facility] TDAP (ADACEL) VACCINE 2019-05-21 00:00:00 Completed [facility] TDAP (ADACEL) VACCINE 2019-05-21 00:00:00 Completed [facility] TDAP (ADACEL) VACCINE 2019-05-21 00:00:00 Completed [facility] TDAP (ADACEL) VACCINE 2019-05-21 00:00:00 Completed [facility] TDAP (ADACEL) VACCINE 2019-05-21 00:00:00 Completed [facility] TDAP (ADACEL) VACCINE 2019-05-21 00:00:00 Completed [facility] TDAP (ADACEL) VACCINE 2019-05-21 00:00:00 Completed [facility] TDAP (ADACEL) VACCINE 2019-05-21 00:00:00 Completed [facility] TDAP (ADACEL) VACCINE 2019-05-21 00:00:00 Completed [facility] TDAP (ADACEL) VACCINE 2019-05-21 00:00:00 Completed [facility] TDAP (ADACEL) VACCINE 2019-05-21 00:00:00 Completed [facility] TDAP (ADACEL) VACCINE 2019-05-21 00:00:00 Completed [facility] TDAP (ADACEL) VACCINE 2019-05-21 00:00:00 Completed [facility] TDAP (ADACEL) VACCINE 2019-05-21 00:00:00 Completed [facility] TDAP (ADACEL) VACCINE 2019-05-21 00:00:00 Completed [facility] TDAP (ADACEL) VACCINE 2019-05-21 00:00:00 Completed [facility] TDAP (ADACEL) VACCINE 2019-05-21 00:00:00 Completed [facility] TDAP (ADACEL) VACCINE 2019-05-21 00:00:00 Completed [facility] TDAP (ADACEL) VACCINE 2019-05-21 00:00:00 Completed [facility] TDAP (ADACEL) VACCINE 2019-05-21 00:00:00 Completed [facility] TDAP (ADACEL) VACCINE 2019-05-21 00:00:00 Completed [facility] TDAP (ADACEL) VACCINE 2019-05-21 00:00:00 Completed [facility] TDAP (ADACEL) VACCINE 2019-05-21 00:00:00 Completed [facility] TDAP (ADACEL) VACCINE 2019-05-21 00:00:00 Completed [facility] TDAP (ADACEL) VACCINE 2019-05-21 00:00:00 Completed [facility] TDAP (ADACEL) VACCINE 2019-05-21 00:00:00 Completed [facility] TDAP (ADACEL) VACCINE 2019-05-21 00:00:00 Completed [facility] TDAP (ADACEL) VACCINE 2019-05-21 00:00:00 Completed [facility] TDAP (ADACEL) VACCINE 2019-05-21 00:00:00 Completed [facility] TDAP (ADACEL) VACCINE 2019-05-21 00:00:00 Completed [facility] TDAP (ADACEL) VACCINE 2019-05-21 00:00:00 Completed [facility] TDAP (ADACEL) VACCINE 2019-05-21 00:00:00 Completed [facility] TDAP (ADACEL) VACCINE 2019-05-21 00:00:00 Completed [facility] Influenza Virus Vaccine Quad .5 mL IM 6+ MO 2019-02-06 00:00:00 Completed [facility] Influenza Virus Vaccine Quad .5 mL IM 6+ MO 2019-02-06 00:00:00 Completed [facility] Influenza Virus Vaccine Quad .5 mL IM 6+ MO 2019-02-06 00:00:00 Completed [facility] Influenza Virus Vaccine Quad .5 mL IM 6+ MO 2019-02-06 00:00:00 Completed [facility] Influenza Virus Vaccine Quad .5 mL IM 6+ MO 2019-02-06 00:00:00 Completed [facility] Influenza Virus Vaccine Quad .5 mL IM 6+ MO 2019-02-06 00:00:00 Completed [facility] Influenza Virus Vaccine Quad .5 mL IM 6+ MO 2019-02-06 00:00:00 Completed [facility] Influenza Virus Vaccine Quad .5 mL IM 6+ MO 2019-02-06 00:00:00 Completed [facility] Influenza Virus Vaccine Quad .5 mL IM 6+ MO 2019-02-06 00:00:00 Completed [facility] Influenza Virus Vaccine Quad .5 mL IM 6+ MO 2019-02-06 00:00:00 Completed [facility] Influenza Virus Vaccine Quad .5 mL IM 6+ MO 2019-02-06 00:00:00 Completed [facility] Influenza Virus Vaccine Quad .5 mL IM 6+ MO 2019-02-06 00:00:00 Completed [facility] Influenza Virus Vaccine Quad .5 mL IM 6+ MO 2019-02-06 00:00:00 Completed [facility] Influenza Virus Vaccine Quad .5 mL IM 6+ MO 2019-02-06 00:00:00 Completed [facility] Influenza Virus Vaccine Quad .5 mL IM 6+ MO 2019-02-06 00:00:00 Completed [facility] Influenza Virus Vaccine Quad .5 mL IM 6+ MO 2019-02-06 00:00:00 Completed [facility] Influenza Virus Vaccine Quad .5 mL IM 6+ MO 2019-02-06 00:00:00 Completed [facility] Influenza Virus Vaccine Quad .5 mL IM 6+ MO 2019-02-06 00:00:00 Completed [facility] Influenza Virus Vaccine Quad .5 mL IM 6+ MO 2019-02-06 00:00:00 Completed [facility] Influenza Virus Vaccine Quad .5 mL IM 6+ MO 2019-02-06 00:00:00 Completed [facility] Influenza Virus Vaccine Quad .5 mL IM 6+ MO 2019-02-06 00:00:00 Completed [facility] Influenza Virus Vaccine Quad .5 mL IM 6+ MO 2019-02-06 00:00:00 Completed [facility] Influenza Virus Vaccine Quad .5 mL IM 6+ MO 2019-02-06 00:00:00 Completed [facility] Influenza Virus Vaccine Quad .5 mL IM 6+ MO 2019-02-06 00:00:00 Completed [facility] Influenza Virus Vaccine Quad .5 mL IM 6+ MO 2019-02-06 00:00:00 Completed [facility] Influenza Virus Vaccine Quad .5 mL IM 6+ MO 2019-02-06 00:00:00 Completed [facility] Influenza Virus Vaccine Quad .5 mL IM 6+ MO 2019-02-06 00:00:00 Completed [facility] Influenza Virus Vaccine Quad .5 mL IM 6+ MO 2019-02-06 00:00:00 Completed [facility] Influenza Virus Vaccine Quad .5 mL IM 6+ MO 2019-02-06 00:00:00 Completed [facility] Influenza Virus Vaccine Quad .5 mL IM 6+ MO 2019-02-06 00:00:00 Completed [facility] Influenza Virus Vaccine Quad .5 mL IM 6+ MO 2019-02-06 00:00:00 Completed [facility] Influenza Virus Vaccine Quad .5 mL IM 6+ MO 2019-02-06 00:00:00 Completed [facility] Influenza Virus Vaccine Quad .5 mL IM 6+ MO 2019-02-06 00:00:00 Completed [facility] Influenza Virus Vaccine Quad .5 mL IM 6+ MO 2019-02-06 00:00:00 Completed [facility] Influenza Virus Vaccine Quad .5 mL IM 6+ MO 2019-02-06 00:00:00 Completed [facility] Influenza Virus Vaccine Quad .5 mL IM 6+ MO 2019-02-06 00:00:00 Completed [facility] Influenza Virus Vaccine Quad .5 mL IM 6+ MO 2019-02-06 00:00:00 Completed [facility] Influenza Virus Vaccine Quad .5 mL IM 6+ MO 2019-02-06 00:00:00 Completed [facility] Influenza Virus Vaccine Quad .5 mL IM 6+ MO 2019-02-06 00:00:00 Completed [facility] Influenza Virus Vaccine Quad .5 mL IM 6+ MO 2019-02-06 00:00:00 Completed [facility] Influenza Virus Vaccine Quad .5 mL IM 6+ MO 2019-02-06 00:00:00 Completed [facility] Influenza Virus Vaccine Quad .5 mL IM 6+ MO 2019-02-06 00:00:00 Completed [facility] Influenza Virus Vaccine Quad .5 mL IM 6+ MO 2019-02-06 00:00:00 Completed [facility] Influenza Virus Vaccine Quad .5 mL IM 6+ MO 2019-02-06 00:00:00 Completed [facility] Influenza Virus Vaccine Quad .5 mL IM 6+ MO 2019-02-06 00:00:00 Completed [facility] Influenza Virus Vaccine Quad .5 mL IM 6+ MO 2019-02-06 00:00:00 Completed [facility] Influenza Virus Vaccine Quad .5 mL IM 6+ MO 2019-02-06 00:00:00 Completed [facility] Influenza Virus Vaccine Quad .5 mL IM 6+ MO 2019-02-06 00:00:00 Completed [facility] Influenza Virus Vaccine Quad .5 mL IM 6+ MO 2019-02-06 00:00:00 Completed [facility] Influenza Virus Vaccine Quad .5 mL IM 6+ MO 2019-02-06 00:00:00 Completed [facility] Influenza Virus Vaccine Quad .5 mL IM 6+ MO 2019-02-06 00:00:00 Completed [facility] Influenza Virus Vaccine Quad .5 mL IM 6+ MO 2019-02-06 00:00:00 Completed [facility] Influenza Virus Vaccine Quad .5 mL IM 6+ MO (FLUZONE/FLULAVAL/F LUARIX) 2019-02-06 00:00:00 Completed [facility] Influenza Virus Vaccine Quad .5 mL IM 6+ MO (FLUZONE/FLULAVAL/F LUARIX) 2019-02-06 00:00:00 Completed [facility] Influenza Virus Vaccine Quad .5 mL IM 6+ MO (FLUZONE/FLULAVAL/F LUARIX) 2019-02-06 00:00:00 Completed [facility] Influenza Virus Vaccine Quad .5 mL IM 6+ MO (FLUZONE/FLULAVAL/F LUARIX) Unknown Completed [facility] TDAP (ADACEL) VACCINE Unknown Completed [facility] Influenza Virus Vaccine Recomb Quad IM, Preserv and ABX Free 18-64 YRS Unknown Completed [facility] Influenza Virus Vaccine Unknown Completed [facility] Influenza Virus Vaccine Quad IM, Preserv and ABX Free 6 MO-64 YRS (FLUCELVAX) Unknown Completed [facility] Influenza Virus Vaccine Quad .5 mL IM 6+ MO (FLUZONE/FLULAVAL/F LUARIX) Unknown Completed [facility] TDAP (ADACEL) VACCINE Unknown Completed [facility] Influenza Virus Vaccine Recomb Quad IM, Preserv and ABX Free 18-64 YRS Unknown Completed [facility] Influenza Virus Vaccine Unknown Completed [facility] Influenza Virus Vaccine Quad IM, Preserv and ABX Free 6 MO-64 YRS (FLUCELVAX) Unknown Completed [facility] Influenza Virus Vaccine Quad .5 mL IM 6+ MO (FLUZONE/FLULAVAL/F LUARIX) Unknown Completed [facility] TDAP (ADACEL) VACCINE Unknown Completed [facility] Influenza Virus Vaccine Recomb Quad IM, Preserv and ABX Free 18-64 YRS Unknown Completed [facility] Influenza Virus Vaccine Unknown Completed [facility] Influenza Virus Vaccine Quad .5 mL IM 6+ MO (FLUZONE/FLULAVAL/F LUARIX) Unknown Completed [facility] TDAP (ADACEL) VACCINE Unknown Completed [facility] Influenza Virus Vaccine Recomb Quad IM, Preserv and ABX Free 18-64 YRS Unknown Completed [facility] Influenza Virus Vaccine Unknown Completed [facility] Influenza Virus Vaccine Quad .5 mL IM 6+ MO (FLUZONE/FLULAVAL/F LUARIX) Unknown Completed [facility] TDAP (ADACEL) VACCINE Unknown Completed [facility] Influenza Virus Vaccine Recomb Quad IM, Preserv and ABX Free 18-64 YRS Unknown Completed [facility] Influenza Virus Vaccine Unknown Completed [facility] Influenza Virus Vaccine Quad .5 mL IM 6+ MO (FLUZONE/FLULAVAL/F LUARIX) Unknown Completed [facility] TDAP (ADACEL) VACCINE Unknown Completed [facility] Influenza Virus Vaccine Recomb Quad IM, Preserv and ABX Free 18-64 YRS Unknown Completed [facility] Influenza Virus Vaccine Unknown Completed [facility] Influenza Virus Vaccine Quad .5 mL IM 6+ MO (FLUZONE/FLULAVAL/F LUARIX) Unknown Completed [facility] TDAP (ADACEL) VACCINE Unknown Completed [facility] Influenza Virus Vaccine Recomb Quad IM, Preserv and ABX Free 18-64 YRS Unknown Completed [facility] Influenza Virus Vaccine Unknown Completed [facility] Influenza Virus Vaccine Quad .5 mL IM 6+ MO (FLUZONE/FLULAVAL/F LUARIX) Unknown Completed [facility] TDAP (ADACEL) VACCINE Unknown Completed [facility] Influenza Virus Vaccine Recomb Quad IM, Preserv and ABX Free 18-64 YRS Unknown Completed [facility] Influenza Virus Vaccine Unknown Completed [facility] Influenza Virus Vaccine Quad .5 mL IM 6+ MO (FLUZONE/FLULAVAL/F LUARIX) Unknown Completed [facility] TDAP (ADACEL) VACCINE Unknown Completed [facility] Influenza Virus Vaccine Recomb Quad IM, Preserv and ABX Free 18-64 YRS Unknown Completed [facility] Influenza Virus Vaccine Unknown Completed [facility] Influenza Virus Vaccine Quad .5 mL IM 6+ MO (FLUZONE/FLULAVAL/F LUARIX) Unknown Completed [facility] TDAP (ADACEL) VACCINE Unknown Completed [facility] Influenza Virus Vaccine Recomb Quad IM, Preserv and ABX Free 18-64 YRS Unknown Completed [facility] Influenza Virus Vaccine Unknown Completed [facility] Influenza Virus Vaccine Quad .5 mL IM 6+ MO (FLUZONE/FLULAVAL/F LUARIX) Unknown Completed [facility] TDAP (ADACEL) VACCINE Unknown Completed [facility] Influenza Virus Vaccine Recomb Quad IM, Preserv and ABX Free 18-64 YRS Unknown Completed [facility] Influenza Virus Vaccine Unknown Completed [facility] Influenza Virus Vaccine Quad .5 mL IM 6+ MO (FLUZONE/FLULAVAL/F LUARIX) Unknown Completed [facility] TDAP (ADACEL) VACCINE Unknown Completed [facility] Influenza Virus Vaccine Recomb Quad IM, Preserv and ABX Free 18-64 YRS Unknown Completed [facility] Influenza Virus Vaccine Unknown Completed [facility] Influenza Virus Vaccine Quad .5 mL IM 6+ MO (FLUZONE/FLULAVAL/F LUARIX) Unknown Completed [facility] TDAP (ADACEL) VACCINE Unknown Completed [facility] Influenza Virus Vaccine Recomb Quad IM, Preserv and ABX Free 18-64 YRS Unknown Completed [facility] Influenza Virus Vaccine Unknown Completed [facility] Influenza Virus Vaccine Quad .5 mL IM 6+ MO (FLUZONE/FLULAVAL/F LUARIX) Unknown Completed [facility] TDAP (ADACEL) VACCINE Unknown Completed [facility] Influenza Virus Vaccine Recomb Quad IM, Preserv and ABX Free 18-64 YRS Unknown Completed [facility] Influenza Virus Vaccine Unknown Completed [facility] Influenza Virus Vaccine Quad .5 mL IM 6+ MO (FLUZONE/FLULAVAL/F LUARIX) Unknown Completed [facility] TDAP (ADACEL) VACCINE Unknown Completed [facility] Influenza Virus Vaccine Recomb Quad IM, Preserv and ABX Free 18-64 YRS Unknown Completed [facility] Influenza Virus Vaccine Unknown Completed [facility] Influenza Virus Vaccine Quad .5 mL IM 6+ MO (FLUZONE/FLULAVAL/F LUARIX) Unknown Completed [facility] TDAP (ADACEL) VACCINE Unknown Completed [facility] Influenza Virus Vaccine Recomb Quad IM, Preserv and ABX Free 18-64 YRS Unknown Completed [facility] Influenza Virus Vaccine Unknown Completed [facility] Influenza Virus Vaccine Quad .5 mL IM 6+ MO (FLUZONE/FLULAVAL/F LUARIX) Unknown Completed [facility] TDAP (ADACEL) VACCINE Unknown Completed [facility] Influenza Virus Vaccine Recomb Quad IM, Preserv and ABX Free 18-64 YRS Unknown Completed [facility] Influenza Virus Vaccine Unknown Completed [facility] Influenza Virus Vaccine Quad .5 mL IM 6+ MO (FLUZONE/FLULAVAL/F LUARIX) Unknown Completed [facility] TDAP (ADACEL) VACCINE Unknown Completed [facility] Influenza Virus Vaccine Recomb Quad IM, Preserv and ABX Free 18-64 YRS Unknown Completed [facility] Influenza Virus Vaccine Unknown Completed [facility] Influenza Virus Vaccine Quad .5 mL IM 6+ MO (FLUZONE/FLULAVAL/F LUARIX) Unknown Completed [facility] TDAP (ADACEL) VACCINE Unknown Completed [facility] Influenza Virus Vaccine Recomb Quad IM, Preserv and ABX Free 18-64 YRS Unknown Completed [facility] Influenza Virus Vaccine Unknown Completed [facility] Influenza Virus Vaccine Quad .5 mL IM 6+ MO (FLUZONE/FLULAVAL/F LUARIX) Unknown Completed [facility] TDAP (ADACEL) VACCINE Unknown Completed [facility] Influenza Virus Vaccine Recomb Quad IM, Preserv and ABX Free 18-64 YRS Unknown Completed [facility] Influenza Virus Vaccine Unknown Completed [facility] Influenza Virus Vaccine Quad .5 mL IM 6+ MO (FLUZONE/FLULAVAL/F LUARIX) Unknown Completed [facility] TDAP (ADACEL) VACCINE Unknown Completed [facility] Influenza Virus Vaccine Recomb Quad IM, Preserv and ABX Free 18-64 YRS Unknown Completed [facility] Influenza Virus Vaccine Unknown Completed [facility] Influenza Virus Vaccine Quad .5 mL IM 6+ MO (FLUZONE/FLULAVAL/F LUARIX) Unknown Completed [facility] TDAP (ADACEL) VACCINE Unknown Completed [facility] Influenza Virus Vaccine Recomb Quad IM, Preserv and ABX Free 18-64 YRS Unknown Completed [facility] Influenza Virus Vaccine Unknown Completed [facility] Influenza Virus Vaccine Quad .5 mL IM 6+ MO (FLUZONE/FLULAVAL/F LUARIX) Unknown Completed [facility] TDAP (ADACEL) VACCINE Unknown Completed [facility] Influenza Virus Vaccine Recomb Quad IM, Preserv and ABX Free 18-64 YRS Unknown Completed [facility] Influenza Virus Vaccine Unknown Completed [facility] Influenza Virus Vaccine Quad .5 mL IM 6+ MO (FLUZONE/FLULAVAL/F LUARIX) Unknown Completed [facility] TDAP (ADACEL) VACCINE Unknown Completed [facility] Influenza Virus Vaccine Recomb Quad IM, Preserv and ABX Free 18-64 YRS Unknown Completed [facility] Influenza Virus Vaccine Unknown Completed [facility] Influenza Virus Vaccine Quad .5 mL IM 6+ MO (FLUZONE/FLULAVAL/F LUARIX) Unknown Completed [facility] TDAP (ADACEL) VACCINE Unknown Completed [facility] Influenza Virus Vaccine Recomb Quad IM, Preserv and ABX Free 18-64 YRS Unknown Completed [facility] Influenza Virus Vaccine Unknown Completed [facility] Influenza Virus Vaccine Quad .5 mL IM 6+ MO (FLUZONE/FLULAVAL/F LUARIX) Unknown Completed [facility] TDAP (ADACEL) VACCINE Unknown Completed [facility] Influenza Virus Vaccine Recomb Quad IM, Preserv and ABX Free 18-64 YRS Unknown Completed [facility] Influenza Virus Vaccine Unknown Completed [facility] Influenza Virus Vaccine Quad .5 mL IM 6+ MO (FLUZONE/FLULAVAL/F LUARIX) Unknown Completed [facility] TDAP (ADACEL) VACCINE Unknown Completed [facility] Influenza Virus Vaccine Recomb Quad IM, Preserv and ABX Free 18-64 YRS Unknown Completed [facility] Influenza Virus Vaccine Unknown Completed [facility] Influenza Virus Vaccine Quad .5 mL IM 6+ MO (FLUZONE/FLULAVAL/F LUARIX) Unknown Completed [facility] TDAP (ADACEL) VACCINE Unknown Completed [facility] Influenza Virus Vaccine Recomb Quad IM, Preserv and ABX Free 18-64 YRS Unknown Completed [facility] Influenza Virus Vaccine Unknown Completed [facility] Influenza Virus Vaccine Quad .5 mL IM 6+ MO (FLUZONE/FLULAVAL/F LUARIX) Unknown Completed [facility] TDAP (ADACEL) VACCINE Unknown Completed [facility] Influenza Virus Vaccine Recomb Quad IM, Preserv and ABX Free 18-64 YRS Unknown Completed [facility] Influenza Virus Vaccine Unknown Completed [facility] Influenza Virus Vaccine Quad .5 mL IM 6+ MO (FLUZONE/FLULAVAL/F LUARIX) Unknown Completed [facility] TDAP (ADACEL) VACCINE Unknown Completed [facility] Influenza Virus Vaccine Recomb Quad IM, Preserv and ABX Free 18-64 YRS Unknown Completed [facility] Influenza Virus Vaccine Unknown Completed [facility] Influenza Virus Vaccine Quad .5 mL IM 6+ MO (FLUZONE/FLULAVAL/F LUARIX) Unknown Completed [facility] TDAP (ADACEL) VACCINE Unknown Completed [facility] Influenza Virus Vaccine Recomb Quad IM, Preserv and ABX Free 18-64 YRS Unknown Completed [facility] Influenza Virus Vaccine Unknown Completed [facility] Influenza Virus Vaccine Quad .5 mL IM 6+ MO (FLUZONE/FLULAVAL/F LUARIX) Unknown Completed [facility] TDAP (ADACEL) VACCINE Unknown Completed [facility] Influenza Virus Vaccine Recomb Quad IM, Preserv and ABX Free 18-64 YRS Unknown Completed [facility] Influenza Virus Vaccine Unknown Completed [facility] Influenza Virus Vaccine Quad .5 mL IM 6+ MO (FLUZONE/FLULAVAL/F LUARIX) Unknown Completed [facility] TDAP (ADACEL) VACCINE Unknown Completed [facility] Influenza Virus Vaccine Recomb Quad IM, Preserv and ABX Free 18-64 YRS Unknown Completed [facility] Influenza Virus Vaccine Unknown Completed [facility] Influenza Virus Vaccine Quad .5 mL IM 6+ MO (FLUZONE/FLULAVAL/F LUARIX) Unknown Completed [facility] TDAP (ADACEL) VACCINE Unknown Completed [facility] [facility] Influenza Virus Vaccine Recomb Quad IM, Preserv and ABX Free 18-64 YRS Unknown Completed [facility] Influenza Virus Vaccine Unknown Completed [facility] Influenza Virus Vaccine Quad .5 mL IM 6+ MO (FLUZONE/FLULAVAL/F LUARIX) Unknown Completed [facility] TDAP (ADACEL) VACCINE Unknown Completed [facility] Influenza Virus Vaccine Recomb Quad IM, Preserv and ABX Free 18-64 YRS Unknown Completed [facility] Influenza Virus Vaccine Unknown Completed [facility] Influenza Virus Vaccine Quad .5 mL IM 6+ MO (FLUZONE/FLULAVAL/F LUARIX) Unknown Completed [facility] TDAP (ADACEL) VACCINE Unknown Completed [facility] Influenza Virus Vaccine Recomb Quad IM, Preserv and ABX Free 18-64 YRS Unknown Completed [facility] Influenza Virus Vaccine Unknown Completed [facility] Influenza Virus Vaccine Quad .5 mL IM 6+ MO (FLUZONE/FLULAVAL/F LUARIX) Unknown Completed [facility] TDAP (ADACEL) VACCINE Unknown Completed [facility] Influenza Virus Vaccine Recomb Quad IM, Preserv and ABX Free 18-64 YRS Unknown Completed [facility] Influenza Virus Vaccine Unknown Completed [facility] Influenza Virus Vaccine Quad .5 mL IM 6+ MO (FLUZONE/FLULAVAL/F LUARIX) Unknown Completed [facility] TDAP (ADACEL) VACCINE Unknown Completed [facility] Influenza Virus Vaccine Recomb Quad IM, Preserv and ABX Free 18-64 YRS Unknown Completed [facility] Influenza Virus Vaccine Unknown Completed [facility] Influenza Virus Vaccine Quad .5 mL IM 6+ MO (FLUZONE/FLULAVAL/F LUARIX) Unknown Completed [facility] TDAP (ADACEL) VACCINE Unknown Completed [facility] Influenza Virus Vaccine Recomb Quad IM, Preserv and ABX Free 18-64 YRS Unknown Completed [facility] Influenza Virus Vaccine Unknown Completed [facility] Influenza Virus Vaccine Quad .5 mL IM 6+ MO (FLUZONE/FLULAVAL/F LUARIX) Unknown Completed [facility] TDAP (ADACEL) VACCINE Unknown Completed [facility] Influenza Virus Vaccine Recomb Quad IM, Preserv and ABX Free 18-64 YRS Unknown Completed [facility] Influenza Virus Vaccine Unknown Completed [facility] Influenza Virus Vaccine Quad .5 mL IM 6+ MO (FLUZONE/FLULAVAL/F LUARIX) Unknown Completed [facility] TDAP (ADACEL) VACCINE Unknown Completed [facility] Influenza Virus Vaccine Recomb Quad IM, Preserv and ABX Free 18-64 YRS Unknown Completed [facility] Influenza Virus Vaccine Unknown Completed [facility] Influenza Virus Vaccine Quad .5 mL IM 6+ MO (FLUZONE/FLULAVAL/F LUARIX) Unknown Completed [facility] TDAP (ADACEL) VACCINE Unknown Completed [facility] Influenza Virus Vaccine Recomb Quad IM, Preserv and ABX Free 18-64 YRS Unknown Completed [facility] Influenza Virus Vaccine Unknown Completed [facility] Influenza Virus Vaccine Quad .5 mL IM 6+ MO (FLUZONE/FLULAVAL/F LUARIX) Unknown Completed [facility] TDAP (ADACEL) VACCINE Unknown Completed [facility] Influenza Virus Vaccine Recomb Quad IM, Preserv and ABX Free 18-64 YRS Unknown Completed [facility] Influenza Virus Vaccine Unknown Completed [facility] Influenza Virus Vaccine Quad .5 mL IM 6+ MO (FLUZONE/FLULAVAL/F LUARIX) Unknown Completed [facility] TDAP (ADACEL) VACCINE Unknown Completed [facility] Influenza Virus Vaccine Recomb Quad IM, Preserv and ABX Free 18-64 YRS Unknown Completed [facility] Influenza Virus Vaccine Unknown Completed [facility] Influenza Virus Vaccine Quad .5 mL IM 6+ MO (FLUZONE/FLULAVAL/F LUARIX) Unknown Completed [facility] TDAP (ADACEL) VACCINE Unknown Completed [facility] Influenza Virus Vaccine Recomb Quad IM, Preserv and ABX Free 18-64 YRS Unknown Completed [facility] Influenza Virus Vaccine Unknown Completed [facility] Influenza Virus Vaccine Quad .5 mL IM 6+ MO (FLUZONE/FLULAVAL/F LUARIX) Unknown Completed [facility] TDAP (ADACEL) VACCINE Unknown Completed [facility] Influenza Virus Vaccine Recomb Quad IM, Preserv and ABX Free 18-64 YRS Unknown Completed [facility] Influenza Virus Vaccine Unknown Completed [facility] Influenza Virus Vaccine Quad .5 mL IM 6+ MO (FLUZONE/FLULAVAL/F LUARIX) Unknown Completed [facility] TDAP (ADACEL) VACCINE Unknown Completed [facility] Influenza Virus Vaccine Recomb Quad IM, Preserv and ABX Free 18-64 YRS Unknown Completed [facility] Influenza Virus Vaccine Unknown Completed [facility] Influenza Virus Vaccine Quad .5 mL IM 6+ MO (FLUZONE/FLULAVAL/F LUARIX) Unknown Completed [facility] TDAP (ADACEL) VACCINE Unknown Completed [facility] Influenza Virus Vaccine Recomb Quad IM, Preserv and ABX Free 18-64 YRS Unknown Completed [facility] Influenza Virus Vaccine Unknown Completed [facility] Influenza Virus Vaccine Quad .5 mL IM 6+ MO (FLUZONE/FLULAVAL/F LUARIX) Unknown Completed [facility] TDAP (ADACEL) VACCINE Unknown Completed [facility] Influenza Virus Vaccine Recomb Quad IM, Preserv and ABX Free 18-64 YRS Unknown Completed [facility] Influenza Virus Vaccine Unknown Completed [facility] Influenza Virus Vaccine Quad .5 mL IM 6+ MO (FLUZONE/FLULAVAL/F LUARIX) Unknown Completed [facility] TDAP (ADACEL) VACCINE Unknown Completed [facility] Influenza Virus Vaccine Recomb Quad IM, Preserv and ABX Free 18-64 YRS Unknown Completed [facility] Influenza Virus Vaccine Unknown Completed [facility] Influenza Virus Vaccine Quad .5 mL IM 6+ MO (FLUZONE/FLULAVAL/F LUARIX) Unknown Completed [facility] TDAP (ADACEL) VACCINE Unknown Completed [facility] Influenza Virus Vaccine Recomb Quad IM, Preserv and ABX Free 18-64 YRS Unknown Completed [facility] Influenza Virus Vaccine Unknown Completed [facility] Influenza Virus Vaccine Quad .5 mL IM 6+ MO (FLUZONE/FLULAVAL/F LUARIX) Unknown Completed [facility] TDAP (ADACEL) VACCINE Unknown Completed [facility] Influenza Virus Vaccine Recomb Quad IM, Preserv and ABX Free 18-64 YRS Unknown Completed [facility] Influenza Virus Vaccine Unknown Completed [facility] Influenza Virus Vaccine Quad .5 mL IM 6+ MO (FLUZONE/FLULAVAL/F LUARIX) Unknown Completed [facility] TDAP (ADACEL) VACCINE Unknown Completed [facility] Influenza Virus Vaccine Recomb Quad IM, Preserv and ABX Free 18-64 YRS Unknown Completed [facility] Influenza Virus Vaccine Unknown Completed [facility] Influenza Virus Vaccine Quad .5 mL IM 6+ MO (FLUZONE/FLULAVAL/F LUARIX) Unknown Completed [facility] TDAP (ADACEL) VACCINE Unknown Completed [facility] Influenza Virus Vaccine Recomb Quad IM, Preserv and ABX Free 18-64 YRS Unknown Completed [facility] Influenza Virus Vaccine Unknown Completed [facility] Influenza Virus Vaccine Quad .5 mL IM 6+ MO (FLUZONE/FLULAVAL/F LUARIX) Unknown Completed [facility] TDAP (ADACEL) VACCINE Unknown Completed [facility] Influenza Virus Vaccine Quad .5 mL IM 6+ MO (FLUZONE/FLULAVAL/F LUARIX) Unknown Completed [facility] TDAP (ADACEL) VACCINE Unknown Completed [facility] Influenza Virus Vaccine Quad .5 mL IM 6+ MO (FLUZONE/FLULAVAL/F LUARIX) Unknown Completed [facility] TDAP (ADACEL) VACCINE Unknown Completed [facility] Influenza Virus Vaccine Quad .5 mL IM 6+ MO (FLUZONE/FLULAVAL/F LUARIX) Unknown Completed [facility] TDAP (ADACEL) VACCINE Unknown Completed [facility] Influenza Virus Vaccine Quad .5 mL IM 6+ MO (FLUZONE/FLULAVAL/F LUARIX) Unknown Completed [facility] TDAP (ADACEL) VACCINE Unknown Completed [facility] Influenza Virus Vaccine Quad .5 mL IM 6+ MO (FLUZONE/FLULAVAL/F LUARIX) Unknown Completed [facility] TDAP (ADACEL) VACCINE Unknown Completed [facility] Influenza Virus Vaccine Quad .5 mL IM 6+ MO (FLUZONE/FLULAVAL/F LUARIX) Unknown Completed [facility] TDAP (ADACEL) VACCINE Unknown Completed [facility] Influenza Virus Vaccine Quad .5 mL IM 6+ MO (FLUZONE/FLULAVAL/F LUARIX) Unknown Completed [facility] TDAP (ADACEL) VACCINE Unknown Completed [facility] Influenza Virus Vaccine Quad .5 mL IM 6+ MO (FLUZONE/FLULAVAL/F LUARIX) Unknown Completed [facility] TDAP (ADACEL) VACCINE Unknown Completed [facility] Influenza Virus Vaccine Quad .5 mL IM 6+ MO (FLUZONE/FLULAVAL/F LUARIX) Unknown Completed [facility] TDAP (ADACEL) VACCINE Unknown Completed [facility] Influenza Virus Vaccine Recomb Quad IM, Preserv and ABX Free 18-64 YRS Unknown Completed [facility] Influenza Virus Vaccine Unknown Completed [facility] Influenza Virus Vaccine Quad IM, Preserv and ABX Free 6 MO-64 YRS (FLUCELVAX) Unknown Completed [facility] Influenza Virus Vaccine Quad .5 mL IM 6+ MO (FLUZONE/FLULAVAL/F LUARIX) Unknown Completed [facility] TDAP (ADACEL) VACCINE Unknown Completed [facility] Influenza Virus Vaccine Recomb Quad IM, Preserv and ABX Free 18-64 YRS Unknown Completed [facility] Influenza Virus Vaccine Unknown Completed [facility] Influenza Virus Vaccine Quad IM, Preserv and ABX Free 6 MO-64 YRS (FLUCELVAX) Unknown Completed [facility] Influenza Virus Vaccine Quad .5 mL IM 6+ MO (FLUZONE/FLULAVAL/F LUARIX) Unknown Completed [facility] TDAP (ADACEL) VACCINE Unknown Completed [facility] Influenza Virus Vaccine Recomb Quad IM, Preserv and ABX Free 18-64 YRS Unknown Completed [facility] Influenza Virus Vaccine Unknown Completed [facility] Influenza Virus Vaccine Quad IM, Preserv and ABX Free 6 MO-64 YRS (FLUCELVAX) Unknown Completed [facility] Vital Signs Vital Name Observation Time Observation Value Comments S ource Systolic blood pressure 2024-05-19 20:32:57 137 mm[Hg] [facility] Diastolic blood pressure 2024-05-19 20:32:57 88 mm[Hg] [facility] Heart rate 2024-05-19 20:32:57 118 /min [facility] Respiratory rate 2024-05-19 20:32:57 18 /min [facility] Oxygen saturation in Arterial blood by Pulse oximetry 2024-05-19 20:32:57 100 /min [facility] Body temperature 2024-05-19 18:41:00 36.39 Irene [facility] Body height 2024-05-19 18:41:00 154.9 cm [facility] Body weight 2024-05-19 18:41:00 52.164 kg [facility] BMI 2024-05-19 18:41:00 21.73 kg/m2 [facility] Systolic blood pressure 2024-04-19 15:51:38 123 mm[Hg] [facility] Diastolic blood pressure 2024-04-19 15:51:38 90 mm[Hg] [facility] Heart rate 2024-04-19 15:51:38 87 /min [facility] Body temperature 2024-04-19 15:51:38 36.78 Irene [facility] Respiratory rate 2024-04-19 15:51:38 14 /min [facility] Oxygen saturation in Arterial blood by Pulse oximetry 2024-04-19 15:51:38 100 /min [facility] Body height 2024-04-19 13:54:00 154.9 cm [facility] Body weight 2024-04-19 13:54:00 54.432 kg [facility] BMI 2024-04-19 13:54:00 22.67 kg/m2 [facility] Systolic blood pressure 2024-04-12 20:00:00 119 mm[Hg] [facility] Diastolic blood pressure 2024-04-12 20:00:00 80 mm[Hg] [facility] Heart rate 2024-04-12 20:00:00 88 /min [facility] Respiratory rate 2024-04-12 20:00:00 18 /min [facility] Oxygen saturation in Arterial blood by Pulse oximetry 2024-04-12 20:00:00 99 /min [facility] Body temperature 2024-04-12 19:00:00 36.67 Irene [facility] Body height 2024-04-12 17:57:10 154.9 cm [facility] Body weight 2024-04-12 17:57:10 54.432 kg [facility] BMI 2024-04-12 17:57:10 22.67 kg/m2 [facility] Systolic blood pressure 2024-04-12 16:25:00 124 mm[Hg] [facility] Diastolic blood pressure 2024-04-12 16:25:00 95 mm[Hg] [facility] Heart rate 2024-04-12 16:25:00 106 /min [facility] Body temperature 2024-04-12 16:25:00 37.17 Irene [facility] Respiratory rate 2024-04-12 16:25:00 18 /min [facility] Oxygen saturation in Arterial blood by Pulse oximetry 2024-04-12 16:25:00 100 /min [facility] Body height 2024-04-12 15:25:00 154.9 cm [facility] Body weight 2024-04-12 15:25:00 54.432 kg [facility] BMI 2024-04-12 15:25:00 22.67 kg/m2 [facility] Systolic blood pressure 2024-03-13 13:25:00 129 mm[Hg] [facility] Diastolic blood pressure 2024-03-13 13:25:00 87 mm[Hg] [facility] Heart rate 2024-03-13 13:25:00 116 /[facility] Body temperature 2024-03-13 13:25:00 35.61 Irene [facility] Respiratory rate 2024-03-13 13:25:00 20 /min [facility] Oxygen saturation in Arterial blood by Pulse oximetry 2024-03-13 13:25:00 94 /min [facility] Body height 2024-03-10 14:43:00 154.9 cm [facility] Body weight 2024-03-10 14:43:00 44.453 kg [facility] BMI 2024-03-10 14:43:00 18.52 kg/m2 [facility] Systolic blood pressure 2024-03-05 16:10:00 142 mm[Hg] [facility] Diastolic blood pressure 2024-03-05 16:10:00 87 mm[Hg] [facility] Heart rate 2024-03-05 16:10:00 94 /min [facility] Body temperature 2024-03-05 16:10:00 37 Irene [facility] Respiratory rate 2024-03-05 16:10:00 16 /min [facility] Oxygen saturation in Arterial blood by Pulse oximetry 2024-03-05 16:10:00 100 /min [facility] Body height 2024-03-04 11:42:00 154.9 cm [facility] Body weight 2024-03-04 11:42:00 45.36 kg [facility] BMI 2024-03-04 11:42:00 18.89 kg/m2 [facility] Systolic blood pressure 2024-02-27 17:17:00 138 mm[Hg] [facility] Diastolic blood pressure 2024-02-27 17:17:00 91 mm[Hg] [facility] Heart rate 2024-02-27 17:17:00 97 /min [facility] Body temperature 2024-02-27 17:17:00 36.67 Irene [facility] Respiratory rate 2024-02-27 17:17:00 16 /min [facility] Oxygen saturation in Arterial blood by Pulse oximetry 2024-02-27 17:17:00 99 /min [facility] Body height 2024-02-27 13:16:00 154.9 cm [facility] Body weight 2024-02-27 13:16:00 45.36 kg [facility] BMI 2024-02-27 13:16:00 18.89 kg/m2 [facility] Systolic blood pressure 2024-02-27 15:50:00 122 mm[Hg] [facility] Diastolic blood pressure 2024-02-27 15:50:00 81 mm[Hg] [facility] Heart rate 2024-02-27 15:50:00 102 /min [facility] Respiratory rate 2024-02-27 15:50:00 13 /min [facility] Oxygen saturation in Arterial blood by Pulse oximetry 2024-02-27 15:50:00 98 /min [facility] Body temperature 2024-02-27 15:20:00 36 Irene [facility] Body height 2024-02-27 13:16:00 154.9 cm [facility] Body weight 2024-02-27 13:16:00 45.36 kg [facility] BMI 2024-02-27 13:16:00 18.89 kg/m2 [facility] Systolic blood pressure 2023-05-19 17:24:00 129 mm[Hg] [facility] Diastolic blood pressure 2023-05-19 17:24:00 83 mm[Hg] [facility] Heart rate 2023-05-19 17:24:00 77 /min [facility] Respiratory rate 2023-05-19 17:24:00 15 /min [facility] Oxygen saturation in Arterial blood by Pulse oximetry 2023-05-19 17:24:00 100 /min [facility] Body temperature 2023-05-19 14:50:00 37.28 Irene [facility] Body height 2023-05-19 14:50:00 154.9 cm [facility] Body weight 2023-05-19 14:50:00 58.968 kg [facility] BMI 2023-05-19 14:50:00 24.56 kg/m2 [facility] Systolic blood pressure 2023-01-15 16:56:00 132 mm[Hg] [facility] Diastolic blood pressure 2023-01-15 16:56:00 91 mm[Hg] [facility] Heart rate 2023-01-15 16:56:00 67 /min [facility] Body temperature 2023-01-15 16:56:00 36.78 Irene [facility] Respiratory rate 2023-01-15 16:56:00 20 /min [facility] Oxygen saturation in Arterial blood by Pulse oximetry 2023-01-15 16:56:00 100 /min [facility] Body height 2023-01-12 09:05:00 154.9 cm [facility] Body weight 2023-01-12 09:05:00 58.968 kg [facility] BMI 2023-01-12 09:05:00 24.56 kg/m2 [facility] Systolic blood pressure 2022-11-21 21:40:00 122 mm[Hg] [facility] Diastolic blood pressure 2022-11-21 21:40:00 90 mm[Hg] [facility] Heart rate 2022-11-21 21:40:00 92 /min [facility] Respiratory rate 2022-11-21 21:40:00 16 /min [facility] Oxygen saturation in Arterial blood by Pulse oximetry 2022-11-21 21:40:00 99 /min [facility] Body temperature 2022-11-21 18:07:00 37.28 Irene [facility] Body weight 2022-11-21 18:07:00 68.04 kg [facility] BMI 2022-11-21 18:07:00 28.34 kg/m2 [facility] Systolic blood pressure 2022-09-05 17:22:00 139 mm[Hg] [facility] Diastolic blood pressure 2022-09-05 17:22:00 91 mm[Hg] [facility] Heart rate 2022-09-05 17:22:00 120 /min [facility] Respiratory rate 2022-09-05 17:22:00 18 /min [facility] Oxygen saturation in Arterial blood by Pulse oximetry 2022-09-05 17:22:00 99 /min [facility] Body temperature 2022-09-05 13:43:00 37.11 [facility] Body weight 2022-09-05 13:43:00 68.04 kg [facility] BMI 2022-09-05 13:43:00 28.34 kg/m2 [facility] Systolic blood pressure 2022-08-01 00:49:00 138 mm[Hg] [facility] Diastolic blood pressure 2022-08-01 00:49:00 104 mm[Hg] [facility] Heart rate 2022-08-01 00:49:00 108 /min [facility] Respiratory rate 2022-08-01 00:49:00 18 /min [facility] Oxygen saturation in Arterial blood by Pulse oximetry 2022-08-01 00:49:00 99 /min [facility] Body temperature 2022-07-31 22:52:00 37.11 [facility] Body height 2022-07-31 22:52:00 154.9 cm [facility] Body weight 2022-07-31 22:52:00 68.04 kg [facility] BMI 2022-07-31 22:52:00 28.34 kg/m2 [facility] Systolic blood pressure 2022-07-15 15:32:00 130 mm[Hg] [facility] Diastolic blood pressure 2022-07-15 15:32:00 90 mm[Hg] [facility] Heart rate 2022-07-15 15:31:00 81 /min [facility] Body temperature 2022-07-15 15:31:00 36.94 [facility] Respiratory rate 2022-07-15 15:31:00 16 /min [facility] Body weight 2022-07-15 15:31:00 68.493 kg [facility] BMI 2022-07-15 15:31:00 28.53 kg/m2 [facility] Oxygen saturation in Arterial blood by Pulse oximetry 2022-07-15 15:31:00 99 /min [facility] Systolic blood pressure 2022-06-23 15:26:00 111 mm[Hg] [facility] Diastolic blood pressure 2022-06-23 15:26:00 75 mm[Hg] [facility] Heart rate 2022-06-23 15:26:00 108 /min [facility] Body temperature 2022-06-23 15:26:00 36.83 Irene [facility] Respiratory rate 2022-06-23 15:26:00 18 /min [facility] Body height 2022-06-23 15:26:00 154.9 cm [facility] Body weight 2022-06-23 15:26:00 71.385 kg [facility] BMI 2022-06-23 15:26:00 29.74 kg/m2 [facility] Oxygen saturation in Arterial blood by Pulse oximetry 2022-06-23 15:26:00 99 /min [facility] Systolic blood pressure 2022-05-05 22:05:00 126 mm[Hg] [facility] Diastolic blood pressure 2022-05-05 22:05:00 75 mm[Hg] [facility] Heart rate 2022-05-05 22:05:00 99 /min [facility] Respiratory rate 2022-05-05 22:05:00 16 /min [facility] Oxygen saturation in Arterial blood by Pulse oximetry 2022-05-05 22:05:00 99 /min [facility] Body temperature 2022-05-05 18:24:00 37.11 Irene [facility] Body height 2022-05-05 18:24:00 154.9 cm [facility] Body weight 2022-05-05 18:24:00 54.432 kg [facility] BMI 2022-05-05 18:24:00 22.67 kg/m2 [facility] Systolic blood pressure 2022-04-26 14:28:00 135 mm[Hg] [facility] Diastolic blood pressure 2022-04-26 14:28:00 95 mm[Hg] [facility] Heart rate 2022-04-26 14:28:00 93 /min [facility] Body temperature 2022-04-26 14:28:00 36.89 Irene [facility] Respiratory rate 2022-04-26 14:28:00 18 /min [facility] Body height 2022-04-26 14:28:00 154.9 cm [facility] 2022-04-26 14:28:00 54.432 kg Univ [facility] BMI 2022-04-26 14:28:00 22.67 kg/m2 [facility] Oxygen saturation in Arterial blood by Pulse oximetry 2022-04-26 14:28:00 100 /min [facility] Systolic blood pressure 2022-04-26 00:21:00 151 mm[Hg] [facility] Diastolic blood pressure 2022-04-26 00:21:00 98 mm[Hg] [facility] Heart rate 2022-04-26 00:21:00 98 /min [facility] Body temperature 2022-04-26 00:21:00 36.72 Irene [facility] Respiratory rate 2022-04-26 00:21:00 18 /min [facility] Body height 2022-04-26 00:21:00 154.9 cm [facility] Body weight 2022-04-26 00:21:00 54.432 kg [facility] BMI 2022-04-26 00:21:00 22.67 kg/m2 [facility] Oxygen saturation in Arterial blood by Pulse oximetry 2022-04-26 00:21:00 100 /min [facility] Systolic blood pressure 2022-04-09 14:39:00 122 mm[Hg] [facility] Diastolic blood pressure 2022-04-09 14:39:00 84 mm[Hg] [facility] Heart rate 2022-04-09 14:39:00 96 /min [facility] Body height 2022-04-09 14:39:00 154.9 cm [facility] Body weight 2022-04-09 14:39:00 60.328 kg [facility] BMI 2022-04-09 14:39:00 25.13 kg/m2 [facility] Oxygen saturation in Arterial blood by Pulse oximetry 2022-04-09 14:39:00 98 /min [facility] Systolic blood pressure 2022-04-07 22:43:36 131 mm[Hg] [facility] Diastolic blood pressure 2022-04-07 22:43:36 83 mm[Hg] [facility] Heart rate 2022-04-07 22:43:36 113 /min [facility] Respiratory rate 2022-04-07 22:43:36 18 /min [facility] Oxygen saturation in Arterial blood by Pulse oximetry 2022-04-07 22:43:36 97 /min [facility] Body temperature 2022-04-07 19:41:00 37.17 Irene [facility] Body height 2022-04-07 19:41:00 154.9 cm [facility] Body weight 2022-04-07 19:41:00 60.328 kg [facility] BMI 2022-04-07 19:41:00 25.13 kg/m2 [facility] Systolic blood pressure 2022-03-24 19:00:00 125 mm[Hg] [facility] Diastolic blood pressure 2022-03-24 19:00:00 86 mm[Hg] [facility] Heart rate 2022-03-24 19:00:00 93 /min [facility] Respiratory rate 2022-03-24 19:00:00 17 /min [facility] Oxygen saturation in Arterial blood by Pulse oximetry 2022-03-24 19:00:00 97 /min [facility] Body temperature 2022-03-24 13:33:00 36.78 Irene [facility] Systolic blood pressure 2022-03-15 19:23:00 128 mm[Hg] [facility] Diastolic blood pressure 2022-03-15 19:23:00 89 mm[Hg] [facility] Heart rate 2022-03-15 19:23:00 104 /min [facility] Body weight 2022-03-15 19:23:00 60.328 kg [facility] BMI 2022-03-15 19:23:00 25.13 kg/m2 [facility] Oxygen saturation in Arterial blood by Pulse oximetry 2022-03-15 19:23:00 98 /min [facility] Systolic blood pressure 2022-03-15 15:02:00 115 mm[Hg] [facility] Diastolic blood pressure 2022-03-15 15:02:00 70 mm[Hg] [facility] Heart rate 2022-03-15 15:02:00 85 /min [facility] Respiratory rate 2022-03-15 15:02:00 20 /min [facility] Oxygen saturation in Arterial blood by Pulse oximetry 2022-03-15 15:02:00 99 /min [facility] Body temperature 2022-03-15 13:38:00 36.94 Irene [facility] Body height 2022-03-15 13:38:00 154.9 cm [facility] Body weight 2022-03-15 13:38:00 54.432 kg [facility] BMI 2022-03-15 13:38:00 22.67 kg/m2 [facility] Systolic blood pressure 2022-03-11 16:30:00 124 mm[Hg] [facility] Diastolic blood pressure 2022-03-11 16:30:00 88 mm[Hg] [facility] Heart rate 2022-03-11 16:30:00 93 /min [facility] Body temperature 2022-03-11 16:30:00 36.67 Irene [facility] Respiratory rate 2022-03-11 16:30:00 14 /min [facility] Oxygen saturation in Arterial blood by Pulse oximetry 2022-03-11 16:30:00 100 /min [facility] Body height 2022-03-11 14:19:00 154.9 cm [facility] Body weight 2022-03-11 14:19:00 58.968 kg [facility] BMI 2022-03-11 14:19:00 24.56 kg/m2 [facility] Systolic blood pressure 2022-02-27 14:14:00 140 mm[Hg] [facility] Diastolic blood pressure 2022-02-27 14:14:00 90 mm[Hg] [facility] Heart rate 2022-02-27 14:14:00 103 /min [facility] Body height 2022-02-27 14:14:00 154.9 cm [facility] Body weight 2022-02-27 14:14:00 59.194 kg [facility] BMI 2022-02-27 14:14:00 24.66 kg/m2 [facility] Oxygen saturation in Arterial blood by Pulse oximetry 2022-02-27 14:14:00 100 /min [facility] Systolic blood pressure 2022-02-27 13:19:00 131 mm[Hg] [facility] Diastolic blood pressure 2022-02-27 13:19:00 86 mm[Hg] [facility] Heart rate 2022-02-27 13:19:00 102 /min [facility] Body temperature 2022-02-27 13:19:00 36.33 Irene [facility] Body height 2022-02-27 13:19:00 154.9 cm [facility] Body weight 2022-02-27 13:19:00 58.968 kg [facility] BMI 2022-02-27 13:19:00 24.56 kg/m2 [facility] Oxygen saturation in Arterial blood by Pulse oximetry 2022-02-27 13:19:00 99 /min [facility] Systolic blood pressure 2022-02-21 08:06:00 135 mm[Hg] [facility] Diastolic blood pressure 2022-02-21 08:06:00 97 mm[Hg] [facility] Heart rate 2022-02-21 08:06:00 98 /min [facility] Respiratory rate 2022-02-21 08:06:00 16 /min [facility] Oxygen saturation in Arterial blood by Pulse oximetry 2022-02-21 08:06:00 97 /min [facility] Body temperature 2022-02-21 06:16:00 36.94 Irene [facility] Body height 2022-02-21 06:16:00 154.9 cm [facility] Body weight 2022-02-21 06:16:00 60.963 kg [facility] BMI 2022-02-21 06:16:00 25.39 kg/m2 [facility] Systolic blood pressure 2022 20:08:00 136 mm[Hg] [facility] Diastolic blood pressure 2022 20:08:00 96 mm[Hg] [facility] Heart rate 2022 20:08:00 100 /min [facility] Respiratory rate 2022 20:08:00 20 /min [facility] Oxygen saturation in Arterial blood by Pulse oximetry 2022 20:08:00 98 /min [facility] Body temperature 2022 16:56:00 37.06 Irene [facility] Body weight 2022 16:56:00 54.432 kg [facility] BMI 2022 16:56:00 22.67 kg/m2 [facility] Systolic blood pressure 2022-02-05 14:31:00 128 mm[Hg] [facility] Diastolic blood pressure 2022-02-05 14:31:00 84 mm[Hg] [facility] Heart rate 2022-02-05 14:31:00 86 /min [facility] Body temperature 2022-02-05 14:31:00 37.89 Irene [facility] Respiratory rate 2022-02-05 14:31:00 18 /min [facility] Body height 2022-02-05 14:31:00 154.9 cm [facility] Body weight 2022-02-05 14:31:00 54.432 kg [facility] BMI 2022-02-05 14:31:00 22.67 kg/m2 [facility] Oxygen saturation in Arterial blood by Pulse oximetry 2022-02-05 14:31:00 98 /min [facility] Systolic blood pressure 2022-01-18 14:50:00 144 mm[Hg] [facility] Diastolic blood pressure 2022-01-18 14:50:00 92 mm[Hg] [facility] Heart rate 2022-01-18 14:50:00 94 /min [facility] Respiratory rate 2022-01-18 14:50:00 20 /min [facility] Oxygen saturation in Arterial blood by Pulse oximetry 2022-01-18 14:50:00 99 /min [facility] Body weight 2022-01-18 10:18:00 54.432 kg [facility] BMI 2022-01-18 10:18:00 22.67 kg/m2 [facility] Body temperature 2022-01-18 10:15:00 36.72 Irene [facility] Systolic blood pressure 2022-01-15 15:48:26 125 mm[Hg] [facility] Diastolic blood pressure 2022-01-15 15:48:26 85 mm[Hg] [facility] Heart rate 2022-01-15 15:48:26 95 /min [facility] Respiratory rate 2022-01-15 15:48:26 18 /min [facility] Oxygen saturation in Arterial blood by Pulse oximetry 2022-01-15 15:48:26 98 /min [facility] Body temperature 2022-01-15 13:32:00 37.11 Irene [facility] Body height 2022-01-15 13:32:00 154.9 cm [facility] Body weight 2022-01-15 13:32:00 54.432 kg [facility] BMI 2022-01-15 13:32:00 22.67 kg/m2 [facility] Systolic blood pressure 2022-01-09 00:37:11 127 mm[Hg] [facility] Diastolic blood pressure 2022-01-09 00:37:11 90 mm[Hg] [facility] Heart rate 2022-01-09 00:37:11 94 /min [facility] Body temperature 2022-01-09 00:37:11 37.11 Irene [facility] Respiratory rate 2022-01-09 00:37:11 16 /min [facility] Oxygen saturation in Arterial blood by Pulse oximetry 2022-01-09 00:37:11 97 /min [facility] Body height 2022-01-08 23:03:00 154.9 cm [facility] Body weight 2022-01-08 23:03:00 58.06 kg [facility] BMI 2022-01-08 23:03:00 24.19 kg/m2 [facility] Systolic blood pressure 2021-12-12 18:00:00 126 mm[Hg] [facility] Diastolic blood pressure 2021-12-12 18:00:00 87 mm[Hg] [facility] Heart rate 2021-12-12 18:00:00 86 /min [facility] Body temperature 2021-12-12 18:00:00 36.89 Irene [facility] Respiratory rate 2021-12-12 18:00:00 18 /min [facility] Body height 2021-12-12 18:00:00 154.9 cm [facility] Body weight 2021-12-12 18:00:00 57.153 kg [facility] BMI 2021-12-12 18:00:00 23.81 kg/m2 [facility] Systolic blood pressure 2023-01-14 16:32:00 138 mm[Hg] [facility] Diastolic blood pressure 2023-01-14 16:32:00 84 mm[Hg] [facility] Heart rate 2023-01-14 16:32:00 67 /min [facility] Body temperature 2023-01-14 16:32:00 36.5 Irene [facility] Respiratory rate 2023-01-14 16:32:00 16 /min [facility] Oxygen saturation in Arterial blood by Pulse oximetry 2023-01-14 16:32:00 99 /min [facility] Body height 2023-01-12 09:05:00 154.9 cm [facility] Body weight 2023-01-12 09:05:00 58.968 kg [facility] BMI 2023-01-12 09:05:00 24.56 kg/m2 [facility] Procedures Procedure Date / Time Performed Performing Clinician Source POCT TEST 2024-05-19 20:10:00 Anamaria Gonzales [facility] LIPASE 2024-05-19 19:53:00 Christian [facility] COMP. METABOLIC PANEL (15644) 2024-05-19 19:53:00 Anamaria Gonzales [facility] CBC WITH DIFF 2024-05-19 [facility] CONTRAST 2024-04-19 14:51:33 Rosendo Levy [facility] POCT TEST 2024-04-19 14:21:00 Rosendo Levy [facility] LIPASE 2024-04-19 14:18:00 Rosendo Levy [facility] COMP. METABOLIC PANEL (55497) 2024-04-19 14:18:00 Rosendo Levy [facility] CBC WITH DIFF 2024-04-19 14:18:00 Rosendo Levy [facility] URINALYSIS 2024-04-19 14:18:00 Rosendo Levy [facility] XR ANKLE <3 VW LEFT 2024-04-12 18:36:00 Neeta Ureña [facility] XR FOOT <3 VW LEFT 2024-04-12 18:36:00 Niranjan Neeta [facility] XR TIBIA FIBULA 2 VW LEFT 2024-04-12 18:36:00 Neeta Ureña [facility] CT TRAUMA HEAD WO CONTRAST 2024-04-12 18:27:49 Neeta Ureña [facility] CT TRAUMA CERVICAL SPINE WO CONTRAST 2024-04-12 18:27:49 Neeta Ureña [facility] CT TRAUMA THORACIC SPINE WO CONTRAST 2024-04-12 18:27:49 Neeta Ureña [facility] CT TRAUMA LUMBAR SPINE WO CONTRAST 04-12 18:27:49 Neeta Ureña [facility] XR CHEST 1 VW 2024-04-12 15:50:27 Maggie Hamilton [facility] COMP. METABOLIC PANEL ([id number]) 2024-04-12 15:43:00 Maggie Hamilton [facility] CBC WITH DIFF 2024-04-12 15:43:00 Maggie Hamilton [facility] HB ABO GROUPING 2024-04-12 15:43:00 Maggie Hamilton [facility] ER FAST ULTRASOUND 2024-04-12 15:36:51 Maggie Hamilton [facility] MAGNESIUM 2024-03-13 10:20:00 [facility] BASIC METABOLIC PANEL (NA, K , CL, CO2, GLUCOSE, BUN, CREATININE, CA) 2024-03-13 10:20:00 Ellis Burgess [facility] CBC WITH DIFF 2024-03-13 10:20:00 [facility] FECAL PATHOGENS BY PCR 2024-03-12 17:51:00 Mars [facility] CLOSTRIDIUM DIFFICILE TOXIN 2024-03-12 17:50:00 Mars [facility] LAB ONLY C. DIFFICILE TOXIN B GENE (TCDB) BY PCR 2024-03-12 17:50:00 [facility] D UPLEX - BY VASCULAR LAB 2024-03-12 14:06:02 Mras [facility] MAGNESIUM 2024-03-12 11:14:00 Mars [facility] BASIC METABOLIC PANEL (NA, K , CL, CO2, GLUCOSE, BUN, CREATININE, CA) 2024-03-12 11:14:00 [facility]FF 2024-03-12 11:14:00 Mars [facility] MAGNESIUM 2024-03-11 10:47:00 Kitty [facility] BASIC METABOLIC PANEL (NA, K , CL, CO2, GLUCOSE, BUN, CREATININE, CA) 2024-03-11 10:47:00 Kitty [facility] CBC WITH DIFF 2024-03-11 10:47[facility] CT ABDOMEN PELVIS WO CONTRAST 2024-03-10 19:46:10 Venkat [facility] LIPASE 2024-03-10 15:42:00 Venkat [facility] TEST, SERUM 2024-03-10 15:42:00 [facility] COMP. METABOLIC PANEL ([id number]) 2024-03-10 15:42:00 Venkat [facility] URINE DRUG (IMMUNOASSAY) - COMPREHENSIVE DRUG SCREEN 2024-03-10 15:42:00 Kitty [facility] CBC WITH DIFF 2024-03-10 15:42:00 Venkat [facility] URINALYSIS 2024-03-10 15:42:00 Venkat [facility] EXTRA TUBE DK. GREEN 2024-03-10 15:42:[address] [facility] [facility] CT ABDOMEN PELVIS WO CONTRAST 2024-03-04 13:43:16 Alexander Richard [facility] POCT TEST 2024-03-04 13:14:00 Alexander Richard [facility] LIPASE 2024-03-04 13:13:00 Alexander Richard [facility] COMP. METABOLIC PANEL ([id number]) 2024-03-04 13:13:00 Alexander Richard [facility] CBC WITH DIFF 2024-03-04 13:13:00 Alexander Richard [facility] URINALYSIS 2024-03-04 13:13:00 Alexander Richard [facility] FLEXIBLE SIGMOIDOSCOPY (ENDO) 2024-02-27 15:42:37 Hany Lee [facility] FLEXIBLE SIGMOIDOSCOPY (ENDO) 2024-02-27 15:42:37 Hany Lee [facility] EGD (ENDO) 2024-02-27 15:39:44 Hany Lee [facility] EGD (ENDO) 2024-02-27 15:39:44 Hany Lee [facility] ESOPHAGOGASTRODUODENOSCOPY 2024-02-27 14:11:00 Jas Buenrostro [facility] FLEXIBLE SIGMOIDOSCOPY 2024-02-27 14:11:00 Jas Buenrostro [facility] MAGNESIUM 2024-02-27 09:37:00 Jose Carlos Urbina [facility] HEPATIC FUNCTION PANEL (8007 6) (ALB,T.PRO,BILI T,BU/BC,ALT,AST,ALK PHOS) 2024-02-27 09:37:00 Jose Carlos Urbina [facility] BASIC METABOLIC PANEL (NA, K , CL, CO2, GLUCOSE, BUN, CREATININE, CA) 2024-02-27 09:37:00 Jose Carlos Urbina [facility] CBC WITH DIFF 2024-02-27 09:37:00 Jose Carlos Urbina [facility] MAGNESIUM 2024-02-27 09:37:00 Jose Carlos Urbina Artur [facility] HEPATIC FUNCTION PANEL (8007 6) (ALB,T.PRO,BILI T,BU/BC,ALT,AST,ALK PHOS) 2024-02-27 09:37:00 Jose Carlos Urbina [facility] BASIC METABOLIC PANEL (NA, K , CL, CO2, GLUCOSE, BUN, CREATININE, CA) 2024-02-27 09:37:00 Jose Carlos Urbina [facility] CBC WITH DIFF 2024-02-27 09:37:00 Jose Carlos Urbina [facility] CALPROTECTIN, FECAL 2024-02-26 22:49:00 Jose Carlos Urbina [facility] CALPROTECTIN, FECAL 2024-02-26 22:49:00 Jose Carlos Urbina [facility] XR KUB 2024-02-26 20:00:00 Jose Carlos Urbina [facility] XR KUB 2024-02-26 20:00:00 Jose Carlos Urbina [facility] MAGNESIUM 2024-02-26 16:17:00 Chitra [facility] HEPATIC FUNCTION PANEL (8007 6) (ALB,T.PRO,BILI T,BU/BC,ALT,AST,ALK PHOS) 2024-02-26 16:17:00 Chitra [facility] BASIC METABOLIC PANEL (NA, K , CL, CO2, GLUCOSE, BUN, CREATININE, CA) 2024-02-26 16:17:00 Chitra [facility] PROTHROMBIN TIME / INR 2024-02-26 16:17:00 Chitra [facility] MAGNESIUM 2024-02-26 16:17:00 Chitra [facility] HEPATIC FUNCTION PANEL (8007 6) (ALB,T.PRO,BILI T,BU/BC,ALT,AST,ALK PHOS) 2024-02-26 16:17:00 Chitra [facility] BASIC METABOLIC PANEL (NA, K , CL, CO2, GLUCOSE, BUN, CREATININE, CA) 2024-02-26 16:17:00 Chitra [facility] PROTHROMBIN TIME / INR 2024-02-26 16:17:00 Chitra [facility] MR ABDOMEN W WO CONTRAST MRCP 2024-02-25 17:15:21 Chitra [facility] MR ABDOMEN W WO CONTRAST MRCP 2024-02-25 17:15:21 Chitra [facility] CREATINE KINASE 2024-02-25 10:52:00 Chitra [facility] HEPATIC FUNCTION PANEL (8007 6) (ALB,T.PRO,BILI T,BU/BC,ALT,AST,ALK PHOS) 2024-02-25 10:52:00 Jose Carlos Urbina [facility] BASIC METABOLIC PANEL (NA, K , CL, CO2, GLUCOSE, BUN, CREATININE, CA) 2024-02-25 10:52:00 Jose Carlos Urbina [facility] CREATINE KINASE 2024-02-25 10:52:00 Chitra [facility] HEPATIC FUNCTION PANEL (8007 6) (ALB,T.PRO,BILI T,BU/BC,ALT,AST,ALK PHOS) 2024-02-25 10:52:00 Jose Carlos Urbina [facility] BASIC METABOLIC PANEL (NA, K , CL, CO2, GLUCOSE, BUN, CREATININE, CA) 2024-02-25 10:52:00 Jose Carlos Urbina [facility] MAGNESIUM 2024-02-24 09:54:00 Naty Buenrostro [facility] HEPATIC FUNCTION PANEL (8007 6) (ALB,T.PRO,BILI T,BU/BC,ALT,AST,ALK PHOS) 2024-02-24 09:54:00 Jose Carlos Urbina [facility] BASIC METABOLIC PANEL (NA, K , CL, CO2, GLUCOSE, BUN, CREATININE, CA) 2024-02-24 09:54:00 Jose Carlos Urbina [facility] CBC WITH DIFF 2024-02-24 09:54:00 Naty Buenrostro [facility] MAGNESIUM 2024-02-24 09:54:00 [facility] (8007 6) (ALB,T.PRO,BILI T,BU/BC,ALT,AST,ALK PHOS) 2024-02-24 09:54:00 Jose Carlos Urbina [facility] BASIC METABOLIC PANEL (NA, K , CL, CO2, GLUCOSE, BUN, CREATININE, CA) 2024-02-24 09:54:00 Jose Carlos Urbina [facility] CBC WITH DIFF 2024-02-24 09:54:00 Naty Buenrostro [facility] POCT GLUCOSE (AUTOMATED) 2024-02-24 01:34:00 Hany Lee [facility] POCT GLUCOSE (AUTOMATED) 2024-02-24 01:34:00 Hany Lee [facility] HEPATIC FUNCTION PANEL (8007 6) (ALB,T.PRO,BILI T,BU/BC,ALT,AST,ALK PHOS) 2024-02-23 17:51:00 Susannah Buenrostroesha [facility] CBC WITH DIFF 2024-02-23 17:51:00 Chitra [facility] HAV ANTIBODY (IGG AND IGM) 2024-02-23 17:51:00 Chitra [facility] ENDOMYSIAL AB, IGA BY IFA 2024-02-23 17:51:00 Chitra [facility] VITAMIN D, 25-[place] 2024-02-23 17:51:00 Chitra [facility] HEPATIC FUNCTION PANEL (8007 6) (ALB,T.PRO,BILI T,BU/BC,ALT,AST,ALK PHOS) 2024-02-23 17:51:00 Chitra [facility] CBC WITH DIFF 2024-02-23 17:51:00 Chitra [facility] HAV ANTIBODY (IGG AND IGM) 2024-02-23 17:51:00 Chitra [facility] ENDOMYSIAL AB, IGA BY IFA 2024-02-23 17:51:00 Chitra [facility] VITAMIN D, 25-[place] 2024-02-23 17:51:00 Chitra [facility] INFLUENZA A/B RSV COVID NAAT 2024-02-22 20:12:00 Chitra [facility] LAB ONLY COVID INTERPRETATION 2024-02-22 20:12:00 Chitra [facility] INFLUENZA A/B RSV COVID NAAT 2024-02-22 20:12:00 Chitra [facility] LAB ONLY COVID INTERPRETATION 2024-02-22 20:12:00 Chitra [facility] XR CHEST 2 VW 2024-02-22 17:16:00 Gregg, Adriana [facility] XR CHEST 2 VW 2024-02-22 17:16:00 Gregg, Adriana [facility] US ABDOMEN LIMITED 2024-02-22 16:59:52 Gregg, Adriana [facility] US ABDOMEN LIMITED 2024-02-22 16:59:52 [facility] 2024-02-22 15:19:00 Banipaez Morrical, Colin [facility] TEST, SERUM 2024-02-22 15:19:00 Stephanie [facility] C-REACTIVE PROTEIN 2024-02-22 15:19:00 Chitra [facility] TROPONIN I 2024-02-22 15:19:00 Stephanie [facility] HEPATIC FUNCTION PANEL (8007 6) (ALB,T.PRO,BILI T,BU/BC,ALT,AST,ALK PHOS) 2024-02-22 15:19:00 [facility] METABOLIC PANEL (93115) 2024-02-22 15:19:00 Stephanie [facility] URINE DRUG (IMMUNOASSAY) - COMPREHENSIVE DRUG SCREEN 2024-02-22 15:19:00 Chitra [facility] SEDIMENTATION RATE 2024-02-22 15:19:00 Chitra [facility] CBC WITH DIFF 2024-02-22 15:19:00 Stephanie [facility] URINALYSIS 2024-02-22 15:19:00 Stephanie [facility] HEPATITIS B SURFACE ANTIBODY 2024-02-22 15:19:00 Chitra [facility] HEPATITIS B SURFACE ANTIGEN 2024-02-22 15:19:00 Chitra [facility] HCV ANTIBODY 2024-02-22 15:19:00 Chitra [facility] HBC ANTIBODY (IGM & IGG) 2024-02-22 15:19:00 Chitra [facility] HIV 1/2 AG-AB WITH REFLEX 2024-02-22 15:19:00 Chitra [facility] DEAMIDATED GLIADIN IGG 2024-02-22 15:19:00 Chitra [facility] LIPASE 2024-02-22 15:19:00 Stephanie [facility] TEST, SERUM 2024-02-22 15:19:00 Stephanie [facility] C-REACTIVE PROTEIN 2024-02-22 15:19:00 Chitra [facility] TROPONIN I 2024-02-22 15:19:00 Stephanie [facility] HEPATIC FUNCTION PANEL (8007 6) (ALB,T.PRO,BILI T,BU/BC,ALT,AST,ALK PHOS) 2024-02-22 15:19:00 Chitra [facility] COMP. METABOLIC PANEL ([id number]) 2024-02-22 15:19:00 Stephanie [facility] URINE DRUG (IMMUNOASSAY) - COMPREHENSIVE DRUG SCREEN 2024-02-22 15:19:00 Chitra [facility] SEDIMENTATION RATE 2024-02-22 15:19:00 Chitra [facility] CBC WITH DIFF 2024-02-22 15:19:00 Stephanie [facility] URINALYSIS 2024-02-22 15:19:00 Stephanie [facility] HEPATITIS B SURFACE ANTIBODY 2024-02-22 15:19:00 Chitra [facility] HEPATITIS B SURFACE ANTIGEN 2024-02-22 15:19:00 Chitra [facility] HCV ANTIBODY 2024-02-22 15:19:00 Chitra [facility] HBC ANTIBODY (IGM & IGG) 2024-02-22 15:19:00 Chitra [facility] HIV 1/2 AG-AB WITH REFLEX 2024-02-22 15:19:00 Chitra [facility] DEAMIDATED GLIADIN IGG 2024-02-22 15:19:00 Chitra [facility] COMP. METABOLIC PANEL (62043) 2023-05-19 17:22:[address] [facility] CT ABDOMEN PELVIS W CONTRAST 2023-05-19 15:59:54 Verito [facility] LIPASE 2023-05-19 15:43:00 Verito [facility] CBC WITH DIFF 2023-05-19 15:43:00 Tod Aguilar [facility] URINALYSIS 2023-05-19 15:32:00 Tod Aguilar [facility] POCT TEST 2023-05-19 15:31:00 Tod Aguilar [facility] CONSENT/REFUSAL FOR DIAGNOSI S AND TREATMENT 2023-05-19 14:37:15 Doctor Unassigned, Amber [facility] PHOSPHORUS 2023-01-15 08:15:00 Benita Rockwell [facility] MAGNESIUM 2023-01-15 08:15:00 [facility] (NA, K , CL, CO2, GLUCOSE, BUN, CREATININE, CA) 2023-01-15 08:15:00 [facility] WITH DIFF 2023-01-15 08:15:00 Moiz [facility] PROTHROMBIN TIME / INR 2023-01-15 08:15:00 Moiz Benita [facility] MAGNESIUM 2023-01-14 10:14:00 [facility] PHOS[facility] 2023-01-14 10:14:00 [facility] BASIC METABOLIC PANEL (NA, K , CL, CO2, GLUCOSE, BUN, CREATININE, CA) 2023-01-14 10:14:00 Moiz Benita [facility] CBC WITH DIFF 2023-01-14 10:14:00 [facility] 2023-01-14 10:14:00 [facility] 2023-01-14 10:14:00 [facility] BASIC METABOLIC PANEL (NA, K , CL, CO2, GLUCOSE, BUN, CREATININE, CA) 2023-01-14 10:14:00 [facility] WITH DIFF 2023-01-14 10:14:00 [facility] WITH DIFF 2023-01-13 10:45:00 Vaishnavi, [facility] BASIC METABOLIC PANEL (NA, K , CL, CO2, GLUCOSE, BUN, CREATININE, CA) 2023-01-13 10:45:00 Vaishnavi, [facility] MAGNESIUM 2023-01-13 10:45:00 Vaishnavi, [facility] PHOSPHORUS 2023-01-13 10:45:00 Vaishnavi, [facility] HEPATIC FUNCTION PANEL (8007 6) (ALB,T.PRO,BILI T,BU/BC,ALT,AST,ALK PHOS) 2023-01-13 10:45:00 Vaishnavi, [facility] PHOSPHORUS 2023-01-13 10:45:00 Vaishnavi, [facility] MAGNESIUM 2023-01-13 10:45:00 Vaishnavi, [facility] HEPATIC FUNCTION PANEL (8007 6) (ALB,T.PRO,BILI T,BU/BC,ALT,AST,ALK PHOS) 2023-01-13 10:45:00 Vaishnavi, [facility] BASIC METABOLIC PANEL (NA, K , CL, CO2, GLUCOSE, BUN, CREATININE, CA) 2023-01-13 10:45:00 Vaishnavi, [facility] CBC WITH DIFF 2023-01-13 10:45:00 Vaishnavi, [facility] GLUCOSE BODY FLUID 2023-01-12 20:44:00 Vaishnavi, [facility] BODY FLUID MANUAL DIFF 2023-01-12 20:44:00 Vaishnavi, [facility] T.PROTEIN BODY FLUID 2023-01-12 20:44:00 Vaishnavi, [facility] ASPIRATE OR ABSCESS CULTURE(AEROBIC/ANAEROBIC) 2023-01-12 20:44:00 Vaishnavi, [facility] LDH TOTAL BODY FLUID 2023-01-12 20:44:00 Vaishnavi, [facility] GLUCOSE BODY FLUID 2023-01-12 20:44:00 Vaishnavi, [facility] T.PROTEIN BODY FLUID 2023-01-12 20:44:00 Vaishnavi, [facility] BODY FLUID DIRECT COUNT 2023-01-12 20:44:00 Vaishnavi, [facility] ASPIRATE OR ABSCESS CULTURE(AEROBIC/ANAEROBIC) 2023-01-12 20:44:00 Vaishnavi, [facility] LDH TOTAL BODY FLUID 2023-01-12 20:44:00 Vaishnavi, [facility] PROTHROMBIN TIME / INR 2023-01-12 08:13:00 Vaishnavi, [facility] PROTHROMBIN TIME / INR 2023-01-12 08:13:00 Vaishnavi, [facility] COMP. METABOLIC PANEL ([id number]) 2023-01-12 03:49:00 Ricky Zehra [facility] COMP. METABOLIC PANEL (55423) 2023-01-12 03:49:00 Zehra García [facility] CT ABDOMEN PELVIS W CONTRAST 2023-01-12 03:32:06 Ricky [facility] CT ABDOMEN PELVIS W CONTRAST 2023-01-12 03:32:06 Zehra García [facility] POCT TEST 2023-01-12 03:02:00 Zehra García [facility] POCT TEST 2023-01-12 03:02:00 Zehra García [facility] URINALYSIS 2023-01-12 02:56:00 Zehra García [facility] LIPASE 2023-01-12 02:56:00 Zehra García [facility] TOTAL BETA HCG ASSAY 2023-01-12 02:56:00 Zehra García [facility] CBC WITH DIFF 2023-01-12 02:56:00 Ricky [facility] EXTRA TUBE ORANGE 2023-01-12 02:56:00 [facility] 2023-01-12 02:56:00 [facility] 2023-01-12 02:56:00 Ricky [facility] TOTAL BETA HCG ASSAY 2023-01-12 02:56:00 Zehra García [facility] CBC WITH DIFF 2023-01-12 02:56:00 Zehra García Joana [facility] URINALYSIS 2023-01-12 02:56:00 Zehra García [facility] EXTRA TUBE LAV 2023-01-12 02:56:00 Miguel Ángel Siddiqui [facility] EXTRA TUBE ORANGE 2023-01-12 02:56:00 Miguel Ángel Siddiqui [facility] CONSENT/REFUSAL FOR DIAGNOSI S AND TREATMENT 2023-01-12 01:46:10 Doctor Unassigned, Amber [facility] CONSENT/REFUSAL FOR DIAGNOSI S AND TREATMENT 2023-01-12 01:46:10 Doctor Unassigned, Amber [facility] ASSIGNMENT OF BENEFITS 2022-11-21 19:49:02 Doctor Unassigned, Amber [facility] ASSIGNMENT OF BENEFITS 2022-11-21 19:49:02 Doctor Unassigned, Amber [facility] CONSENT/REFUSAL FOR DIAGNOSI S AND TREATMENT 2022-11-21 18:03:25 Doctor Unassigned, Amber [facility] CONSENT/REFUSAL FOR DIAGNOSI S AND TREATMENT 2022-11-21 18:03:25 Doctor Unassigned, Amber [facility] EMERGENCY SERVICES AGREEMENT S AND AUTHORIZATIONS 2022-11-21 05:01:00 Doctor Unassigned, Amber [facility] CONSENT/REFUSAL FOR DIAGNOSI S AND TREATMENT 2022-09-05 13:42:02 Doctor Unassigned, Amber [facility] LIPASE 2022-07-31 23:13:00 [facility] TEST, SERUM 2022-07-31 23:13:00 Blane [facility] COMP. METABOLIC PANEL (85562) 2022-07-31 23:13:00 Blane [facility] CBC WITH DIFF 2022-07-31 23:13:00 Blane [facility] CONSENT/REFUSAL FOR DIAGNOSI S AND TREATMENT 2022-07-31 22:49:17 Doctor Unassigned, Amber [facility] XR ANKLE 3+ VW RIGHT 2022-07-15 16:00:00 Jenifer Kaurly J [facility] XR FOOT 3+ VW RIGHT 2022-07-15 16:00:00 Natasha, Beba Farmer [facility] XR FOOT 3+ VW RIGHT 2022-07-15 16:00:00 Natasha Beba Farmer [facility] PATIENT FINANCIAL POLICY 2022-07-15 15:25:53 Doctor Unassigned, Amber [facility] POCT MOLECULAR STREP 2022-06-23 16:06:00 Unknown, Attending [facility] ASSIGNMENT OF BENEFITS 2022-06-23 15:18:28 Doctor Unassigned, Amber [facility] COMP. METABOLIC PANEL ([id number]) 2022-05-05 19:14:00 [facility] 2022-05-05 19:14:[address] [facility] POCT TEST 2022-05-05 19:00:00 [facility]-05-05 18:58:[facility]EL[facility] WO CONTRAST 2022-04-26 15:11:00 [facility] METABOLIC PANEL (23751) 2022-04-26 14:49:00 Singer [facility] CBC WITH DIFF 2022-04-26 14:49:00 Singer [facility] URINALYSIS 2022-04-26 14:49:00 [facility] 2022-04-26 14:45:00 Singer [facility] CONSENT/REFUSAL FOR DIAGNOSI S AND TREATMENT 2022-04-26 14:22:29 Doctor Unassigned, Amber [facility] POCT TEST 2022-04-26 01:22:00 Oc Bridges [facility] ASSIGNMENT OF BENEFITS 2022-04-26 00:54:02 Doctor Unassigned, Amber [facility] URINALYSIS 2022-04-26 00:45:00 Singer [facility] CONSENT/REFUSAL FOR DIAGNOSI S AND TREATMENT 2022-04-26 00:16:47 Doctor Unassigned, Amber [facility] BASIC METABOLIC PANEL (NA, K , CL, CO2, GLUCOSE, BUN, CREATININE, CA) 2022-04-07 22:35:00 Olamide Garvin [facility] CBC WITH DIFF 2022-04-07 22:35:00 Olamide Garvin [facility] URINALYSIS 2022-04-07 21:36:00 Olamide Gravin [facility] URINE DRUG (IMMUNOASSAY) - COMPREHENSIVE DRUG SCREEN W/O REFLEX 2022-04-07 21:36:00 Olamide Garvin [facility] CONSENT/REFUSAL FOR DIAGNOSI S AND TREATMENT 2022-04-07 19:29:15 Doctor Unassigned, Amber [facility] POCT TEST 2022-03-24 14:07:00 Kellie Piper [facility] CONSENT/REFUSAL FOR DIAGNOSI S AND TREATMENT 2022-03-24 13:27:20 Doctor Unassigned, Amber [facility] CT ABDOMEN PELVIS WO CONTRAST 2022-03-15 14:09:04 Lydia Colmenares [facility] URINALYSIS 2022-03-15 13:53:00 Lydia Colmenares [facility] POCT TEST 2022-03-15 13:52:00 Lydia Colmenares [facility] CONSENT/REFUSAL FOR DIAGNOSI S AND TREATMENT 2022-03-15 13:37:02 Doctor Unassigned, Amber [facility] POCT TEST 2022-03-11 14:59:00 Angelica Viveros [facility] FLU VACC (), 6 MO-6 4 YRS, .5ML, IM, QUAD (FLUCELVAX) 2022-02-27 13:34:55 Ca Martinez [facility] NOTICE OF PRIVACY PRACTICES 2022-02-21 06:06:30 Doctor Unassigned, Amber [facility] CONSENT/REFUSAL FOR DIAGNOSI S AND TREATMENT 2022-02-21 06:03:41 Doctor Unassigned, Amber [facility] XR ANKLE <3 VW RIGHT 2022 17:56:42 Maggie Hamilton [facility] CT ABDOMEN PELVIS W CONTRAST 2022 17:44:17 Maggie Hamilton [facility] CT TRAUMA CERVICAL SPINE WO CONTRAST 2022 17:43:49 Maggie Hamilton [facility] POCT TEST 2022 17:27:00 Maggie Hamilton [facility] COMP. METABOLIC PANEL ([id number]) 2022 17:17:00 Maggie Hamilton [facility] CBC WITH DIFF 2022 17:17:00 Maggie Hamilton [facility] CONSENT/REFUSAL FOR DIAGNOSI S AND TREATMENT 2022 16:53:13 Doctor Unassigned, Amber [facility] GALL BLADDER 2022-01-18 12:31:09 Rosendo Levy [facility] US PELVIS COMPLETE WITH TRANSVAGINAL 2022-01-18 12:21:13 Melvin Zhao [facility] CT ABDOMEN PELVIS W CONTRAST 2022-01-18 11:20:50 Melvin Zhao [facility] POCT TEST 2022-01-18 10:57:00 Juan Kennedy [facility] COVID-19 (ID NOW RAPID TESTING) 10:57:00 Juan Kennedy [facility] URINALYSIS 2022-01-18 10:47:00 Juan Kennedy [facility] LIPASE 2022-01-18 10:29:00 Juan Kennedy [facility] TEST, SERUM 2022-01-18 10:29:00 Juan Kennedy [facility] HEPATIC FUNCTION PANEL (8007 6) (ALB,T.PRO,BILI T,BU/BC,ALT,AST,ALK PHOS) 2022-01-18 10:29:00 Juan Kennedy [facility] BASIC METABOLIC PANEL (NA, K , CL, CO2, GLUCOSE, BUN, CREATININE, CA) 2022-01-18 10:29:00 Juan Kennedy [facility] CBC WITH DIFF 2022-01-18 10:29:00 Juan Kennedy [facility] CONSENT/REFUSAL FOR DIAGNOSI S AND TREATMENT 2022-01-18 10:13:31 Doctor Unassigned, Amber [facility] CT HEAD WO CONTRAST 2022-01-15 15:22:29 Maura Cox [facility] TEST, SERUM 2022-01-15 14:36:00 Maura Cox [facility] BASIC METABOLIC PANEL (NA, K , CL, CO2, GLUCOSE, BUN, CREATININE, CA) 2022-01-15 14:36:00 Maura Cox [facility] CBC WITH DIFF 2022-01-15 14:36:00 Maura Cox [facility] CONSENT/REFUSAL FOR DIAGNOSI S AND TREATMENT 2022-01-15 13:28:12 Doctor Unassigned, Amber [facility] XR CERVICAL SPINE 4 VW 2022-01-09 00:29:16 Gabriela [facility] XR LUMBAR SPINE 4 VW 2022-01-09 00:29:16 Gabriela [facility] XR SPINE THORACIC 3 VW 2022-01-09 00:29:16 Gabriela [facility] URINALYSIS 2022-01-08 23:50:00 Gabriela [facility] CONSENT/REFUSAL FOR DIAGNOSI S AND TREATMENT 2022-01-08 22:51:08 Doctor Unassigned, Amber [facility] GALV ONLY - VAGINAL PATHOGEN S BY NUCLEIC ACID TESTING 2021-12-12 18:37:00 Prasanna Vargas [facility] URINE CULTURE 2021-12-12 18:32:00 Prasanna Vargas [facility] POCT TEST 2021-12-12 18:31:00 Prasanna Vargas [facility] POCT URINALYSIS W/O SPECIFIC GRAVITY 2021-12-12 18:31:00 Prasanna Vargas [facility] Encounters Start Date/Time End Date/Time Encounter Type Admission Type Attending [facility] Care Facility Care Department Encounter ID Source 2021-03-14 03:14:31 Emergency [facility] [id number] [facility] 2021-03-13 20:05:20 Emergency [facility] [id number] [facility] 2021-03-13 12:48:28 Emergency [facility] [id number] 2021-03-13 02:43:51 Emergency [facility] [id number] [facility] 2021-03-13 00:27:09 Emergency [facility] [id number] [facility] 2021-03-12 22:10:36 Emergency [facility] [id number] [facility] 2021-03-12 20:04:05 Emergency [facility] [id number] [facility] 2021-03-12 15:25:05 Emergency [facility] [id number] [facility] 2021-03-12 11:43:36 Emergency [facility] [id number] [facility] 2021-03-12 07:41:37 Emergency [facility] [id number] [facility] 2021-03-12 05:43:47 Emergency [facility] [id number] [facility] 2021-03-12 03:43:41 Emergency [facility] [id number] [facility] 2021-03-12 01:31:27 Emergency [facility] [id number] [facility] 2021-03-12 00:56:44 Emergency X [facility] [id number] [facility] 2021-03-12 00:56:31 Emergency [facility] [id number] [facility] 2021-03-11 17:47:02 Emergency [facility] [id number] [facility] 2021-03-11 16:27:15 Emergency [facility] [id number] [facility] 2021-03-11 12:00:58 Emergency [facility] [id number] [facility] 2021-03-11 10:33:59 Emergency [facility] [id number] [facility] 2021-03-11 01:36:52 Emergency [facility] [id number] [facility] 2021-03-10 23:35:34 Emergency [facility] [id number] [facility] 2021-03-10 19:06:16 Emergency [facility] [id number] [facility] 2021-03-10 12:39:47 Emergency [facility] [id number] [facility] 2021-03-10 06:54:04 Emergency [facility] [id number] [facility] 2021-03-09 13:25:44 Outpatient P [facility] CHRIS [id number] [facility] 2021-03-09 13:08:01 Outpatient P [facility] [id number] [facility] 2021-03-09 12:37:25 Outpatient P [facility] [id number] [facility] 2021-03-09 11:51:20 Outpatient P [facility] [id number] [facility] 2022-08-27 00:00:00 2024-06-27 02:42:04 Orders Only Palak Marrufo [facility] TALYA?[facility] 1.2.840.114 350.1.13.10 4.2.7.2.686 [id number] [facility] 2022-08-28 00:00:00 2024-06-27 02:42:02 Orders Only Palak Marrufo [facility] TALYA?[facility] 1.2.840.114 350.1.13.10 4.2.7.2.686 [id number] [facility] 2022-08-29 00:00:00 2024-06-27 02:41:59 Orders Only Palak Marrufo [facility] TALYA?[facility] 1.2.840.114 350.1.13.10 4.2.7.2.686 [id number] [facility] 2022-09-24 00:00:00 2024-06-27 02:41:25 Orders Only Niru, Palak Marrufo, Pal[facility]YA?[facility] 1.2.840.114 350.1.13.10 4.2.7.2.686 [id number] [facility] 2022-09-27 00:00:00 2024-06-27 02:41:19 Orders Only Niru, Palak Marrufo, Pal[facility] 1.2840.114 350.1.13.10 4.2.7.2.686 [id number] [facility] 2022-10-02 00:00:00 2024-06-27 02:41:14 Orders Only Niru, Palak Marrufo, Palak [facility] 1.2.840.114 350.1.13.10 4.2.7.2.686 [id number] [facility] 2022-11-15 00:00:00 2024-06-27 02:40:23 Orders Only Palak Marrufo, Palak [facility] 1.2840.114 350.1.13.10 4.2.7.2.686 [id number] [facility] 2024-05-19 12:49:00 2024-05-19 16:37:00 Emergency X ANAMARIA GONZALES DONNELL [facility] ERT [id number] [facility] 2024-05-19 12:49:00 2024-05-19 16:37:00 Emergency Anamaria Gonzales [facility] 1.2.840.114 350.1.13.10 4.2.7.2.686 [id number] [facility] 2024-04-19 07:55:00 2024-04-19 09:58:00 Emergency X ROSENDO LEVY BRENT [facility] ERT [id number] [facility] 2024-04-19 07:55:00 2024-04-19 09:58:00 Emergency Rosendo Levy [facility] 1.2.840.114 350.1.13.10 4.2.7.2.686 [id number] [facility] 2024-03-18 00:00:00 2024-04-18 18:19:35 Patient Secure Msg Doctor Unassigned, Amber Doctor Unassigned, Amber [facility] 1.2.840.114 350.1.13.10 4.2.7.2.686 [id number] [facility] 2024-04-12 11:54:00 2024-04-12 14:39:00 Emergency T ARAM PARADA [facility] STR [id number] [facility] 2024-04-12 11:54:00 2024-04-12 14:39:00 Emergency Aram Parada [facility] ([facility]) 1.2.840.114 350.1.13.10 4.2.7.2.686 [id number] [facility] 2024-04-12 09:23:00 2024-04-12 10:42:00 Emergency X MAGGIE HAMILTON SANDRA [facility] ERT [id number] [facility] 2024-04-12 09:23:00 2024-04-12 10:42:00 Emergency Olamide Garvin Sandra J [facility] 1..840.114 350.1.13.10 4.2.7.2.686 [id number] [facility] 2024-03-10 09:43:00 2024-03-13 10:40:00 Inpatient X TAJ DE PAZ MICHAEL [facility] NATTY [id number] [facility] 2024-03-10 09:43:00 2024-03-13 10:40:00 Hospital Encounter FidelAlfredo, Jose Mao, Taj Milner [facility] ([place]) 1.2.840.114 350.1.13.10 4.2.7.2.686 [id number] [facility] 2024-03-06 00:00:00 2024-03-06 08:40:48 Transition of Care Marlys Odell Antoinette SHEARN OMER MELO 1.2.840.114 350.1.13.10 4.2.7.2.686 [id number] [facility] 2024-03-04 06:46:00 2024-03-05 16:30:00 Outpatient X JOSE MANDUJANO [facility] [id number] [facility] 2024-03-04 06:46:00 2024-03-05 16:30:00 Emergency Jesus Muñoz Myrna [facility] 1.2.840.114 350.1.13.10 4.2.7.2.686 [id number] [facility] 2024-03-03 00:00:00 2024-03-04 15:45:46 Patient Secure MsJas Jackson [facility] ([facility]) 1.2.840.114 350.1.13.10 4.2.7.2.686 [id number] [facility] 2024-03-03 00:00:00 2024-03-03 12:14:14 Telephone Giselle Vance [facility] ([place]) 1.2.840.114 350.1.13.10 4.2.7.2.686 [id number] [facility] 2024-02-28 00:00:00 2024-02-28 09:08:41 Transition of Care Tc Renteria Michele A SHEARN OMER MELO 1.2840.114 350.1.13.10 4.2.7.2.686 [id number] [facility] 2024-02-22 09:35:00 2024-02-27 16:59:00 Inpatient X LEE HANY [facility] NATTY [id number] [facility] 2024-02-22 09:35:00 2024-02-27 16:59:00 Hospital Encounter Stephanie Warren, Hany Quiroz [facility] ([facility]) 1.2.840.114 350.1.13.10 4.2.7.2.686 [id number] [facility] 2024-02-27 09:40:00 2024-02-27 10:51:00 Surgery Jas Buenrostro [facility]LDG 1.2840.114 350.1.13.10 4.2.7.2.686 [id number] [facility] 2024-02-27 09:22:00 2024-02-27 10:26:00 Anesthesia Event Peter Reece [facility] 1.2840.114 350.1.13.10 4.2.7.2.686 [id number] [facility] 2024-02-24 00:00:00 2024-02-24 09:18:09 Telephone Naty Buenrostro [facility] PRIMARY CARE PAVILLION 1.2840.114 350.1.13.10 4.2.7.2.686 [id number] [facility] 2023-12-23 15:39:53 2023-12-23 15:39:53 Outpatient [facility] [id number] Willis Gil 2023-12-08 14:51:46 2023-12-08 14:51:46 Outpatient [facility] [id number] Willis Gil 2023-09-12 00:00:00 2023-09-12 00:00:00 Outpatient R ROLDAN WALKER [facility] [id number] [facility] 2023-08-26 00:00:00 2023-08-26 00:00:00 Transition of Care Marlys Odell 1.840.114 350.1.13.10 4.2.7.2.686 [id number] [facility] 2023-08-23 08:31:00 2023-08-24 13:25:00 Outpatient X DENISE ROLDAN [facility] [place] [id number] [facility] 2023-08-04 14:56:23 2023-08-04 14:56:23 Outpatient [facility] [id number] Willis Gil 2023-06-27 14:47:45 2023-06-27 14:47:45 Outpatient [facility] [id number] Willis Gil 2023-05-19 09:04:00 2023-05-19 12:20:00 Emergency X ADERIJOHN, [facility] ERT [id number] [facility] 2023-05-19 09:04:00 2023-05-19 12:20:00 Emergency Aderijohn, [facility] 1.840.114 350.1.13.10 4.2.7.2.686 [id number] [facility] 2023-04-05 00:00:00 2023-04-05 00:00:00 Patient Secure Msg Prasanna Vargas Jm [facility] PROFESSIO [facility] 1.84.114 350.1.13.10 4.2.7.2.686 [id number] [facility] 2023-02-14 12:59:23 2023-02-14 12:59:23 Outpatient SFA [id number] Willis Gil 2023-02-06 18:19:02 2023-02-06 18:19:02 Outpatient SFA [id number] Willis Gil 2023-01-30 00:00:00 2023-01-30 00:00:00 Outpatient CHILO [facility] [id number] Odilia [facility] 2023-01-16 00:00:00 2023-01-16 00:00:00 Transition of Care Marlys Odell 1.2.840.114 350.1.13.10 4.2.7.2.686 [id number] [facility] 2023-01-11 21:06:00 2023-01-15 16:00:00 Inpatient Aj REINALDO STEELESHUA [facility] DAVID [id number] [facility] 2023-01-11 21:06:00 2023-01-15 16:00:00 Hospital Encounter Miguel Ángel Siddiqui, Mirella Steele, [facility] 1.2.840.114 350.1.13.10 4.2.7.2.686 [id number] [facility] 2023-01-12 00:00:00 2023-01-12 00:00:00 Travel 1.2.840.1 86646.1.1 3.104.2.7 .3.575165 .8 1.2.840.114 350.1.13.10 4.2.7.3.698 084.8 [id number] [facility] 2023-01-11 00:00:00 2023-01-11 00:00:00 Travel 1.2.840.1 05414.1.1 3.104.2.7 .3.465803 .8 1.2.840.114 350.1.13.10 4.2.7.3.698 084.8 [id number] [facility] 2022-12-28 00:00:00 2022-12-28 00:00:00 Outpatient ERICKSON_R [facility] [id number] 2022-12-14 18:37:13 2022-12-14 18:37:13 Outpatient SFA [id number] Willis Gil 2022-12-13 00:00:00 2022-12-13 00:00:00 Outpatient ERICKSON_R [facility] [id number] [facility] 2022-12-12 09:30:00 2022-12-12 09:30:00 Outpatient R PRASANNA VARGAS [facility] [id number] [facility] 2022-11-21 13:08:00 2022-11-21 16:45:00 Emergency MANJU BARRAGAN [facility] ERT [id number] [facility] 2022-11-21 13:08:00 2022-11-21 16:45:00 Emergency Oc Bridges Christopher 1.2.840.1 88270.1.1 3.104.2.7 .3.466351 .8 [id number] [facility] 2022-11-21 00:00:00 2022-11-21 00:00:00 Travel 1.2.840.1 56200.1.1 3.104.2.7 .3.198866 .8 1.2.840.114 350.1.13.10 4.2.7.3.698 084.8 [id number] [facility] 2022-11-18 10:08:00 2022-11-18 10:08:00 Outpatient SFA [id number] Willis Gil 2022-11-15 09:40:00 2022-11-15 09:40:00 Outpatient JEREMY LABOY CHRISTINE [facility] [id number] [facility] 2022-11-09 15:26:18 2022-11-09 15:26:18 Outpatient SFA [id number] Willis Gil 2022-11-06 13:00:00 2022-11-06 13:00:00 Outpatient R CA MARTINEZ [facility] [id number] [facility] 2022-10-29 00:00:00 2022-10-29 00:00:00 Patient Secure Msg Jeremy Greene 1.2.840.1 97133.1.1 3.104.2.7 .3.785352 .8 [id number] [facility] 2022-10-29 00:00:00 2022-10-29 00:00:00 Patient Secure Msg Prasanna Vargas 1.2.840.1 43383.1.1 3.104.2.7 .3.057883 .8 [id number] [facility] 2022-10-03 00:00:00 2022-10-03 00:00:00 Letter (Out) Roldan Walker [facility] 1..840.114 350.1.13.10 4.2.7.2.686 [id number] [facility] 2022-10-02 10:00:00 2022-10-02 10:00:00 Outpatient R DESIREE FINNEY [facility] [id number] [facility] 2022-10-01 09:40:00 2022-10-01 09:40:00 Outpatient REJI COOPER [facility] [id number] [facility] 2022-09-25 00:00:00 2022-09-25 00:00:00 Telephone [facility] 1..840.114 350.1.13.10 4.2.7.2.686 [id number] [facility] 2022-09-21 09:30:00 2022-09-21 09:30:00 Outpatient KASSANDRA MCKINLEY [facility] [id number] [facility] 2022-09-21 00:00:00 2022-09-21 00:00:00 [facility] ([facility] MED[facility] OFF[facility] BUILD[facility] 1.2.840.114 350.1.13.10 4.2.7.2.686 [id number] [facility] 2022-09-21 00:00:00 2022-09-21 00:00:00 [facility] MED[facility] OFF[facility] BUILD[facility] 1.2.840.114 350.1.13.10 4.2.7.2.686 [id number] [facility] 2022-09-21 00:00:00 2022-09-21 00:00:00 [facility]phone [facility] MED[facility] OFF[facility] BUILD[facility] 1.2.840.114 350.1.13.10 4.2.7.2.686 [id number] [facility] 2022-09-14 09:30:00 2022-09-14 09:30:00 Outpatient R KASSANDRA PUGH [facility] [id number] [facility] 2022-09-12 00:00:00 2022-09-12 00:00:00 [facility] MED[facility] OFF[facility] BUILD[facility] 1.2.840.114 350.1.13.10 4.2.7.2.686 [id number] [facility] 2022-09-07 11:30:00 2022-09-07 11:30:00 [facility] [id number] [facility] 2022-09-05 08:44:00 2022-09-05 13:15:00 Emergency X KENNEDY HUTCHINS [facility] ERT [id number] [facility] 2022-09-05 08:44:00 2022-09-05 13:15:00 Emergency Kennedy Hutchins [facility] 1.2.840.114 350.1.13.10 4.2.7.2.686 [id number] [facility] 2022-09-04 00:00:00 2022-09-04 00:00:00 Telephone Kassandra Pugh [facility]O [facility] MED[facility] OFFICE BUILDING 1..840.114 350.1.13.10 4.2.7.2.686 [id number] [facility] 2022-09-04 00:00:00 2022-09-04 00:00:00 Patient Secure Msg Rad Serra [facility] PROFESSIO NAL BUILDING 1..840.114 350.1.13.10 4.2.7.2.686 [id number] [facility] 2022-08-29 09:00:00 2022-08-29 09:00:00 Outpatient R DESIREE FINNEY [facility] [id number] [facility] 2022-08-14 00:00:00 2022-08-14 00:00:00 Patient Secure Msg Doctor Unassigned, Amber [facility] 1..840.114 350.1.13.10 4.2.7.2.686 [id number] [facility] 2022-07-31 17:56:00 2022-07-31 20:30:00 [facility] [id number] [facility] 2022-07-31 17:56:00 2022-07-31 20:30:00 Emergency BaltimoreManju matos [facility] 1.2840.114 350.1.13.10 4.2.7.2.686 [id number] [facility] 2022-07-15 09:46:45 2022-07-15 23:59:00 Outpatient R BEBA KAUR [facility] [id number] [facility] 2022-07-15 09:46:45 2022-07-15 23:59:00 Hospital Encounter [facility] 1.20.114 350.1.13.10 4.2.7.2.686 [id number] [facility] 2022-07-15 09:46:45 2022-07-15 23:59:00 Hospital Encounter Beba Kaur [facility] OFF[facility] BUILD[facility] 1..114 350.1.13.10 4.2.7.2.686 [id number] [facility] 2022-07-15 09:20:00 2022-07-15 10:29:17 Urgent Care Beba Kaur Unknown, Attending [facility] MEDICAL OFFICE BUILDING 1.114 350.1.13.10 4.2.7.2.686 [id number] [facility] 2022-07-15 00:00:00 2022-07-15 00:00:00 Orders Only Doctor Unassigned, Amber [facility] 1.114 350.1.13.10 4.2.7.2.686 [id number] [facility] 2022-06-23 09:20:00 2022-06-23 10:27:39 Outpatient R MAGALI SAMAYOAKeith [facility] [id number] [facility] 2022-06-23 09:20:00 2022-06-23 10:27:39 Urgent Care Kirk Samayoa Unknown, Attending [facility] MEDICAL OFFICE BUILDING 1.84.114 350.1.13.10 4.2.7.2.686 [id number] [facility] 2022-06-23 00:00:00 2022-06-23 00:00:00 Orders Only Doctor Unassigned, Amber [facility] 1..840.114 350.1.13.10 4.2.7.2.686 [id number] [facility] 2022-06-15 09:40:00 2022-06-15 09:40:00 Outpatient R JEREMY GREENE [facility] [id number] [facility] 2022-05-29 08:00:00 2022-05-29 08:00:00 Outpatient KASSANDRA MCKINLEY [facility] [id number] [facility] 2022-05-15 09:20:00 2022-05-15 09:20:00 Outpatient BENNETT MOORE [facility] [id number] [facility] 2022-05-11 09:30:00 2022-05-11 09:30:00 Outpatient KASSANDRA MCKINLEY [facility] [id number] [facility] 2022-05-05 12:26:00 2022-05-05 16:11:00 Emergency X KARON NORTON [facility] ERT [id number] [facility] 2022-05-05 12:26:00 2022-05-05 16:11:00 Emergency Karon Norton [facility] ..840.114 350.1.13.10 4.2.7.2.686 [id number] [facility] 2022-05-01 00:00:00 2022-05-01 00:00:00 Outpatient R PRASANNA VARGAS VIEN [facility] [id number] [facility] 2022-04-26 08:30:00 2022-04-26 09:59:00 Emergency X OC BRIDGES [facility] ERT [id number] [facility] 2022-04-26 08:30:00 2022-04-26 09:59:00 Emergency Oc Bridges [facility] 1.2.840.114 350.1.13.10 4.2.7.2.686 [id number] [facility] 2022-04-25 18:23:00 2022-04-25 21:55:00 Emergency X KENNEDY HUTCHINS [facility] ERT [id number] [facility] 2022-04-25 18:23:00 2022-04-25 21:55:00 Emergency Kennedy Hutchins [facility] 1.2.840.114 350.1.13.10 4.2.7.2.686 [id number] [facility] 2022-04-19 10:00:00 2022-04-19 10:00:00 Outpatient JEREMY LABOY [facility] [id number] [facility] 2022-04-12 00:00:00 2022-04-12 00:00:00 [facility] 1.2.840.114 350.1.13.10 4.2.7.2.686 [id number] [facility] 2022-04-11 00:00:00 2022-04-11 00:00:00 Telephone [facility] 1.2.840.114 350.1.13.10 4.2.7.2.686 [id number] [facility] 2022-04-10 00:00:00 2022-04-10 00:00:00 [facility] 1.2.840.114 350.1.13.10 4.2.7.2.686 [id number] [facility] 2022-04-09 09:30:00 2022-04-09 09:30:00 Office Visit Kassandra Pugh [facility] 1..840.114 350.1.13.10 4.2.7.2.686 [id number] [facility] 2022-04-09 09:30:00 2022-04-09 09:21:44 Outpatient R KASSANDRA PUGH [facility] [id number] [facility] 2022-04-07 13:41:00 2022-04-07 17:49:00 Emergency X OLAMIDE GARVIN [facility] ERT [id number] [facility] 2022-04-07 13:41:00 2022-04-07 17:49:00 Emergency Olamide Garvin G [facility] 1..840.114 350.1.13.10 4.2.7.2.686 [id number] [facility] 2022-04-07 00:00:00 2022-04-07 00:00:00 Patient Secure Msg Doctor Unassigned, Amber [facility] 1.840.114 350.1.13.10 4.2.7.2.686 [id number] [facility] 2022-04-04 00:00:00 2022-04-04 00:00:00 [facility] 1..840.114 350.1.13.10 4.2.7.2.686 [id number] [facility] 2022-04-02 10:30:00 2022-04-02 10:30:00 Outpatient R KASSANDRA PUGH [facility] [id number] [facility] 2022-03-28 00:00:00 2022-03-28 00:00:00 Patient Secure Msg Doctor Unassigned, Amber [facility] 1..840.114 350.1.13.10 4.2.7.2.686 [id number] [facility] 2022-03-24 07:35:00 2022-03-24 13:11:00 Emergency X KELLIE PIPER [facility] ERT [id number] [facility] 2022-03-24 07:35:00 2022-03-24 13:11:00 Emergency Kellie Piper Duc [facility] 1.84.114 350.1.13.10 4.2.7.2.686 [id number] [facility] 2022-03-23 10:30:00 2022-03-23 10:30:00 Outpatient KASSANDRA MCKINLEY [facility] [id number] [facility] 2022-03-23 00:00:00 2022-03-23 00:00:00 Telephone Patti Darrion [facility] TALYA?[facility] MED[facility] OFFICE BUILDING 1.840.114 350.1.13.10 4.2.7.2.686 [id number] [facility] 2022-03-22 00:00:00 2022-03-22 00:00:00 Telephone Patti Darrion [facility] TALYA?[facility] MED[facility] OFFICE BUILDING 1.840.114 350.1.13.10 4.2.7.2.686 [id number] [facility] 2022-03-22 00:00:00 2022-03-22 00:00:00 Refill Patti [facility] TALYA?[facility] MED[facility] OFFICE BUILDING 1.840.114 350.1.13.10 4.2.7.2.686 [id number] [facility] 2022-03-21 00:00:00 2022-03-21 00:00:00 Telephone Patti, [facility] TALYA?[facility] MEDICAL OFFICE BUILDING 1.840.114 350.1.13.10 4.2.7.2.686 [id number] [facility] 2022-03-15 14:00:00 2022-03-15 14:36:19 [facility] [id number] [facility] 2022-03-15 14:00:00 2022-03-15 14:36:19 Office Visit Radha [facility] PROFESSIO NAL BUILDING 1..840.114 350.1.13.10 4.2.7.2.686 [id number] [facility] 2022-03-15 08:40:00 2022-03-15 10:47:00 Emergency X LYDIA COLMENARES [facility] ERT [id number] [facility] 2022-03-15 08:40:00 2022-03-15 10:47:00 Emergency Bryanna [facility] 1..840.114 350.1.13.10 4.2.7.2.686 [id number] [facility] 2022-03-14 10:30:00 2022-03-14 10:30:00 Outpatient R PRASANNA VARGAS [facility] [id number] [facility] 2022-03-11 09:22:00 2022-03-11 12:15:00 Emergency X ANGELICA VIVEROS [facility] ERT [id number] [facility] 2022-03-11 09:22:00 2022-03-11 12:15:00 Emergency Felice Angelica [facility] 1..840.114 350.1.13.10 4.2.7.2.686 [id number] [facility] 2022-03-06 08:30:00 2022-03-06 08:30:00 Outpatient R KASSANDRA PUGH [facility] [id number] [facility] 2022-03-02 00:00:00 2022-03-02 00:00:00 Telephone Darrion Armstrong [facility] MEDICAL OFFICE BUILDING 1.2.840.114 350.1.13.10 4.2.7.2.686 [id number] [id number] [facility] 2022-02-28 00:00:00 2022-02-28 00:00:00 Patient Secure Msg Doctor Unassigned, Amber [facility] MEDICAL OFFICE BUILDING 1.2.840.114 350.1.13.10 4.2.7.2.686 [id number] [facility] 2022-02-27 09:30:00 2022-02-27 09:49:42 Outpatient LONNY MCKINLEYSSICA [facility] [id number] [facility] 2022-02-27 09:30:00 2022-02-27 09:49:42 [facility] MEDICAL OFFICE BUILDING 1.2.840.114 350.1.13.10 4.2.7.2.686 [id number] [facility] 2022-02-27 08:00:00 2022-02-27 09:12:17 Office Visit Víctorkassandra Ca [facility] MED[facility] OFFICE BUILD[facility] 1.2.840.114 350.1.13.10 4.2.7.2.686 [id number] [facility] 2022-02-26 11:30:00 2022-02-26 11:30:00 Outpatient KASSANDRA MCKINLEY [facility] [id number] [facility] 2022-02-21 01:20:00 2022-02-21 03:44:00 Emergency X MAGGIE HAMILTON [facility] ERT [id number] [facility] 2022-02-21 01:20:00 2022-02-21 03:44:00 Emergency Maggie Hamilton [facility] 1.2840.114 350.1.13.10 4.2.7.2.686 [id number] [facility] 2022-02-19 00:00:00 2022-02-19 00:00:00 Patient Secure Msg Kendal Zamudio [facility] MEDICAL OFFICE BUILDING 1.2840.114 350.1.13.10 4.2.7.2.686 [id number] [facility] 2022-02-19 00:00:00 2022-02-19 00:00:00 Patient Secure Msg Kendal Zamudio [facility] MEDICAL OFFICE BUILDING 1.20.114 350.1.13.10 4.2.7.2.686 [id number] [facility] 2022-02-19 00:00:00 2022-02-19 00:00:00 Patient Secure Msg Annie Santiago N [facility] 1.2840.114 350.1.13.10 4.2.7.2.686 [id number] [facility] 2022-02-19 00:00:00 2022-02-19 00:00:00 Patient Secure Msg Ross Salazar [facility] IN[employer]GR[facility] [employer]CH[facility] 1.2840.114 350.1.13.10 4.2.7.2.686 [id number] [facility] 2022 11:58:00 2022 15:13:00 Emergency X MAGGIE HAMILTON [facility] ERT [id number] [facility] 2022 11:58:00 2022 15:13:00 Emergency Maggie Hamilton [facility] 1.2840.114 350.1.13.10 4.2.7.2.686 [id number] [facility] 2022-02-09 09:00:00 2022-02-09 09:00:00 Outpatient R CRICKET TAYLOR [facility] [id number] [facility] 2022-02-06 10:00:00 2022-02-06 10:00:00 Outpatient CA ARAUZ [facility] [id number] [facility] 2022-02-05 09:45:00 2022-02-05 10:05:00 Nurse Visit Nurse, [facility]o [facility] 1..840.114 350.1.13.10 4.2.7.2.686 [id number] [facility] 2022-02-05 09:20:00 2022-02-05 09:20:00 Outpatient FALCO KEE [facility] [id number] [facility] 2022-01-26 00:00:00 2022-01-26 00:00:00 Case Management [facility] 1..840.114 350.1.13.10 4.2.7.2.686 [id number] [facility] 2022-01-22 11:00:00 2022-01-22 11:00:00 Outpatient CA ARAUZ [facility] [id number] [facility] 2022-01-19 00:00:00 2022-01-19 00:00:00 Patient Secure Msg Doctor Unassigned, Amber [facility] 1..840.114 350.1.13.10 4.2.7.2.686 [id number] [facility] 2022-01-18 05:17:00 2022-01-18 10:25:00 Emergency X ROSENDO LEVY [facility] ERT [id number] [facility] 2022-01-18 05:17:00 2022-01-18 10:25:00 Emergency Juan Kennedy [facility] 1..840.114 350.1.13.10 4.2.7.2.686 [id number] [facility] 2022-01-15 08:34:00 2022-01-15 10:49:00 Emergency MAURA DALE [facility] ERT [id number] [facility] 2022-01-15 08:34:00 2022-01-15 10:49:00 Emergency Ana Larry Maura Romero [facility] ..840.114 350.1.13.10 4.2.7.2.686 [id number] [facility] 2022-01-08 18:04:00 2022-01-08 20:09:00 Emergency X HUMBERTO OCHOA [facility] ERT [id number] [facility] 2022-01-08 18:04:00 2022-01-08 20:09:00 [facility]840.114 350.1.13.10 4.2.7.2.686 [id number] [facility] 2021-12-12 13:30:00 2021-12-12 13:40:21 Outpatient TETO BRANTLEY [facility] [id number] [facility] 2021-12-12 13:30:00 2021-12-12 13:40:21 [facility]..840.114 350.1.13.10 4.2.7.2.686 [id number] [facility] 2021-12-12 13:30:00 2021-12-12 13:40:21 Outpatient TETO BRNATLEY [facility] [id number] [facility] 2021-12-12 13:30:00 2021-12-12 13:40:21 Outpatient R DEYVITETO [facility] [id number] [facility] 2021-12-11 16:15:00 2021-12-11 16:15:00 Outpatient R VALENCIASANTIAGO [facility] [id number] [facility] 2021-12-05 14:15:00 2021-12-05 14:15:00 Outpatient Farzana OMALLEYROMULO [facility] [id number] [facility] 2021-11-28 08:49:00 2021-11-28 11:02:00 Emergency X NORTON KARON [facility] ERT [id number] [facility] 2021-11-28 08:49:00 2021-11-28 11:02:00 Emergency Karon Norton [facility] 1.2.840.114 350.1.13.10 4.2.7.2.686 [id number] [facility] 2021-11-28 00:00:00 2021-11-28 00:00:00 Patient Secure Msg Cricket Taylor [facility] INTEGRATION SOLUTION ARCHITECT [facility] 1..840.114 350.1.13.10 4.2.7.2.686 [id number] [facility] 2021-11-24 18:14:00 2021-11-24 21:04:00 Emergency X Kaycee MÉNDEZ [facility] ERT [id number] [facility] 2021-11-24 18:14:00 2021-11-24 21:04:00 Emergency Kaycee Méndez [facility] 1..840.114 350.1.13.10 4.2.7.2.686 [id number] [facility] 2021-11-24 00:00:00 2021-11-24 00:00:00 Telephone Cricket Taylor [facility] INTEGRATION SOLUTION ARCHITECT [facility] [facility] 1.2840.114 350.1.13.10 4.2.7.2.686 [id number] [facility] 2021-11-20 00:00:00 2021-11-20 00:00:00 Patient Secure Kendal Medrano [facility] MEDICAL OFFICE BUILD[facility] 1.2.114 350.1.13.10 4.2.7.2.686 [id number] [facility] 2021-11-19 00:00:00 2021-11-19 00:00:00 Letter (Out) Leslie Santacruz [facility] 1.284.114 350.1.13.10 4.2.7.2.686 [id number] [facility] 2021-11-18 10:41:40 2021-11-18 23:59:00 [facility] [id number] [facility] 2021-11-18 10:41:40 2021-11-18 23:59:00 Hospital Encounter Oliver, [facility] MEDICAL OFFICE BUILDING 1.284.114 350.1.13.10 4.2.7.2.686 [id number] [facility] 2021-11-18 10:20:00 2021-11-18 10:53:20 Urgent Care Oliver, [facility] MEDICAL OFFICE BUILDING 1.2840.114 350.1.13.10 4.2.7.2.686 [id number] [facility] 2021-11-09 10:30:00 2021-11-09 10:30:00 Outpatient R DESIREE MOHR [facility] [id number] [facility] 2021-10-25 13:20:00 2021-10-25 13:20:00 Urgent Care Willie Medrano [facility] OFFICE BUILDING 1.2.840.114 350.1.13.10 4.2.7.2.686 [id number] [facility] 2021-10-25 13:20:00 2021-10-25 12:47:59 Outpatient WILLIE CASE [facility] [id number] [facility] 2021-10-25 00:00:00 2021-10-25 00:00:00 Patient Secure Msg Richelle MartinezCritical access hospitalE?[facility] MEDICAL OFFICE BUILDING 1.2.840.114 350.1.13.10 4.2.7.2.686 [id number] [facility] 2021-10-25 00:00:00 2021-10-25 00:00:00 Telephone Ca [facility] MED[facility] OFFICE BUILD[facility] 1.2.840.114 350.1.13.10 4.2.7.2.686 [id number] [facility] 2021-10-25 00:00:00 2021-10-25 00:00:00 Telephone Provider, Filippo Shirley [facility] MEDICAL OFFICE BUILDING 1.2.840.114 350.1.13.10 4.2.7.2.686 [id number] [facility] 2021-10-25 00:00:00 2021-10-25 00:00:00 Telephone Nurse, Filippo Shirley [facility] MEDICAL OFFICE BUILDING 1.2.840.114 350.1.13.10 4.2.7.2.686 [id number] [facility] 2021-10-24 10:15:00 2021-10-24 10:15:00 Outpatient ROMULO BROWNING [facility] [id number] [facility] 2021-10-24 10:15:00 2021-10-24 10:15:00 Outpatient ROMULO BROWNING [facility] [id number] [facility] 2021-10-11 09:30:00 2021-10-11 09:30:00 Outpatient ROMULO BROWNING [facility] [id number] [facility] 2021-10-10 13:30:00 2021-10-10 13:30:00 Outpatient PRASANNA LOOMIS [facility] [id number] [facility] 2021-10-10 13:30:00 2021-10-10 13:30:00 Outpatient PRASANNA LOOMIS [facility] [id number] [facility] 2021-10-10 13:30:00 2021-10-10 13:30:00 Outpatient PRASANNA LOOMIS [facility] [id number] [facility] 2021-10-10 13:30:00 2021-10-10 13:30:00 Outpatient PRASANNA LOOMIS [facility] [id number] [facility] 2021-10-10 13:30:00 2021-10-10 13:30:00 Outpatient PRASANNA LOOMIS [facility] [id number] [facility] 2021-10-10 13:30:00 2021-10-10 13:30:00 Outpatient PRASANNA LOOMIS [facility] [id number] [facility] 2021-10-10 13:30:00 2021-10-10 13:30:00 Outpatient R PRASANNA VARGAS [facility] [id number] [facility] 2021-10-05 00:00:00 2021-10-05 00:00:00 Patient Secure Kendal Medrano [facility] MAURICE BABIN?[facility] 1.2.840.114 350.1.13.10 4.2.7.2.686 [id number] [facility] 2021-10-05 00:00:00 2021-10-05 00:00:00 Patient Secure Msg Kendal Zamudio [facility] 1.2840.114 350.1.13.10 4.2.7.2.686 [id number] [facility] 2021-10-04 00:00:00 2021-10-04 00:00:00 Pre Visit Outreach Melia Rodriguez [facility] 1.2.840.114 350.1.13.10 4.2.7.2.686 [id number] [facility] 2021-09-28 13:30:00 2021-09-28 13:45:00 Office Visit Desiree Mohr [facility] 1.2.840.114 350.1.13.10 4.2.7.2.686 [id number] [facility] 2021-09-28 13:30:00 2021-09-28 13:30:00 Outpatient DESIREE STONE [facility] [id number] [facility] 2021-09-28 13:30:00 2021-09-28 13:30:00 Outpatient DESIREE STONE [facility] [id number] [facility] 2021-09-28 00:00:00 2021-09-28 00:00:00 Patient Secure g OnurDesiree Kassandra [facility] 1.2.840.114 350.1.13.10 4.2.7.2.686 [id number] [facility] 2021-09-27 14:00:00 2021-09-27 14:00:00 Outpatient TETO BRANTLEY [facility] [id number] [facility] 2021-09-27 09:30:00 2021-09-27 09:30:00 Outpatient DANIA RICARDO [facility] [id number] [facility] 2021-09-27 09:30:00 2021-09-27 09:30:00 Outpatient R DANIA PENNINGTON [facility] [id number] [facility] 2021-09-27 09:30:00 2021-09-27 09:30:00 Outpatient R DANIA PENNINGTON [facility] [id number] [facility] 2021-09-26 10:45:00 2021-09-26 10:45:00 Outpatient R ELAMALIK CRICKET [facility] [id number] [facility] 2021-09-26 10:45:00 2021-09-26 10:45:00 Outpatient R MICHELLELYNSEY CRICKET [facility] [id number] [facility] 2021-09-26 00:00:00 2021-09-26 00:00:00 Patient Secure Ca Caraballo [facility] MEDICAL OFFICE BUILDING 1.2.840.114 350.1.13.10 4.2.7.2.686 [id number] [facility] 2021-09-26 00:00:00 2021-09-26 00:00:00 Patient Secure Ca Caraballo [facility] MEDICAL OFFICE BUILDING 1.2.840.114 350.1.13.10 4.2.7.2.686 [id number] [facility] 2021-09-25 10:20:00 2021-09-25 11:10:42 Urgent Care OliverFlaco mccauley Amanda [facility] MEDICAL OFFICE BUILDING 1.2.840.114 350.1.13.10 4.2.7.2.686 [id number] [facility] 2021-09-25 10:20:00 2021-09-25 11:10:42 Outpatient R FLACO BOYD [facility] [id number] [facility] 2021-09-25 10:20:00 2021-09-25 10:20:00 Outpatient R NOELLE BOYDTANY [facility] [id number] [facility] 2021-09-25 10:00:00 2021-09-25 10:00:00 Outpatient R PRASANNA VARGAS [facility] [id number] [facility] 2021-09-25 00:00:00 2021-09-25 00:00:00 [facility] OFF[facility] BUILDING 1.2840.114 350.1.13.10 4.2.7.2.686 [id number] [facility] 2021-09-25 00:00:00 2021-09-25 00:00:00 Patient Secure Msg Prasanna Vargas [facility] NAL BUILDING 1.2840.114 350.1.13.10 4.2.7.2.686 [id number] [facility] 2021-09-25 00:00:00 2021-09-25 00:00:00 Telephone Cricket Taylor [facility] INTEGRATION SOLUTION ARCH[facility] 1.2840.114 350.1.13.10 4.2.7.2.686 [id number] [facility] 2021-09-25 00:00:00 2021-09-25 00:00:00 Telephone Desiree Mohr [facility] 1.2840.114 350.1.13.10 4.2.7.2.686 [id number] [facility] 2021-09-15 00:00:00 2021-09-15 00:00:00 Patient Secure Msg Kendal Zamudio [facility] MEDICAL OFFICE BUILDING 1.2840.114 350.1.13.10 4.2.7.2.686 [id number] [facility] 2021-09-15 00:00:00 2021-09-15 00:00:00 Patient Secure Msg Kendal Zamudio [facility] MEDICAL OFFICE BUILDING 1..840.114 350.1.13.10 4.2.7.2.686 [id number] [facility] 2021-09-15 00:00:00 2021-09-15 00:00:00 Patient Secure Msg Kendal Zamudio [facility] MEDICAL OFFICE BUILDING 1..840.114 350.1.13.10 4.2.7.2.686 [id number] [facility] 2021-09-14 00:00:00 2021-09-14 00:00:00 Patient Secure Msg Juan Ca [facility] MED[facility] OFFICE BUILD[facility] 1..840.114 350.1.13.10 4.2.7.2.686 [id number] [facility] 2021-09-14 00:00:00 2021-09-14 00:00:00 Patient Secure Msg Doctor Unassigned, Amber [facility] MEDICAL OFFICE BUILDING 1..840.114 350.1.13.10 4.2.7.2.686 [id number] [facility] 2021-09-12 10:30:00 2021-09-12 10:30:00 Outpatient DESIREE STONE [facility] [id number] [facility] 2021-09-12 10:30:00 2021-09-12 10:30:00 Outpatient DESIREE STONE [facility] [id number] [facility] 2021-09-12 00:00:00 2021-09-12 00:00:00 Patient Secure Msg Taj Dsouza [facility] 1.2840.114 350.1.13.10 4.2.7.2.686 [id number] [facility] 2021-09-12 00:00:00 2021-09-12 00:00:00 Orders Only Doctor Unassigned, Amber [facility] 1.2840.114 350.1.13.10 4.2.7.2.686 [id number] [facility] 2021-09-12 00:00:00 2021-09-12 00:00:00 Patient [facility]ILD[facility] 1.2840.114 350.1.13.10 4.2.7.2.686 [id number] [facility] 2021-09-05 00:00:00 2021-09-05 00:00:00 Patient Secure Msg Juan [facility] MEDICAL OFFICE BUILDING 1.2840.114 350.1.13.10 4.2.7.2.686 [id number] [facility] 2021-09-05 00:00:00 2021-09-05 00:00:00 Patient Secure Msg Doctor Unassigned, Amber [facility] 1.2840.114 350.1.13.10 4.2.7.2.686 [id number] [facility] 2021-09-05 00:00:00 2021-09-05 00:00:00 Patient Secure Msg Doctor Unassigned, Amber [facility] 1.2840.114 350.1.13.10 4.2.7.2.686 [id number] [facility] 2021-09-04 00:00:00 2021-09-04 00:00:00 Patient Secure Msg Juan [facility] MEDICAL OFFICE BUILDING 1.2840.114 350.1.13.10 4.2.7.2.686 [id number] [facility] 2021-08-28 00:00:00 2021-08-28 00:00:00 Patient Secure Msg Harsh Charles [facility] 1.2840.114 350.1.13.10 4.2.7.2.686 [id number] [facility] 2021-08-25 00:00:00 2021-08-25 00:00:00 Telephone Dania Pennington Ez [facility] MEDICAL OFFICE BUILDING 1.20.114 350.1.13.10 4.2.7.2.686 [id number] [facility] 2021-08-25 00:00:00 2021-08-25 00:00:00 Patient Secure Msg Ca [facility] MED[facility] OFFICE BUILDING 1.20.114 350.1.13.10 4.2.7.2.686 [id number] [facility] 2021-08-24 00:00:00 2021-08-24 00:00:00 Telephone Ca [facility] MED[facility] OFFICE BUILDING 1.2840.114 350.1.13.10 4.2.7.2.686 [id number] [facility] 2021-08-24 00:00:00 2021-08-24 00:00:00 Patient Secure Msg Ca Martinez [facility] MED[facility] OFFICE BUILDING 1.2840.114 350.1.13.10 4.2.7.2.686 [id number] [id number] [facility] 2021-08-23 00:00:00 2021-08-23 00:00:00 Patient Secure Msg Ca [facility] MED[facility] OFFICE BUILDING 1.2.840.114 350.1.13.10 4.2.7.2.686 [id number] [facility] 2021-08-23 00:00:00 2021-08-23 00:00:00 Telephone Ca Martinez [facility] 1.2.840.114 350.1.13.10 4.2.7.2.686 [id number] [facility] 2021-08-22 00:00:00 2021-08-22 00:00:00 Telephone Ca [facility] MED[facility] OFFICE BUILDING 1.2.840.114 350.1.13.10 4.2.7.2.686 [id number] 044 [id number] [facility] 2021-08-22 00:00:00 2021-08-22 00:00:00 Patient Secure Msg Hallie Wilkinson [facility] MED[facility] OFFICE BUILDING 1.2.840.114 350.1.13.10 4.2.7.2.686 [id number] [facility] 2021-08-18 00:00:00 2021-08-18 00:00:00 Telephone Ca Martinez [facility] OFF[facility] BUILDING 1.2.840.114 350.1.13.10 4.2.7.2.686 [id number] [facility] 2021-08-17 09:00:00 2021-08-17 09:00:00 Outpatient DESIREE STONE [facility] [id number] [facility] 2021-08-17 09:00:00 2021-08-17 09:00:00 Outpatient DESIREE STONE [facility] [id number] [facility] 2021-08-17 00:00:00 2021-08-17 00:00:00 Patient Secure Msg Prasanna Vargas [facility] 1.2840.114 350.1.13.10 4.2.7.2.686 [id number] [facility] 2021-08-17 00:00:00 2021-08-17 00:00:00 Patient Secure Msg Ca Martinez [facility] MEDICAL OFFICE BUILDING 1.2840.114 350.1.13.10 4.2.7.2.686 [id number] [facility] 2021-08-17 00:00:00 2021-08-17 00:00:00 Patient Secure Msg Ca Martinez [facility] MEDICAL OFFICE BUILDING 1.2840.114 350.1.13.10 4.2.7.2.686 [id number] 044 [id number] [facility] 2021-08-16 00:00:00 2021-08-16 00:00:00 Patient Secure Msg Ca Martinez [facility] MEDICAL OFFICE BUILDING 1.2840.114 350.1.13.10 4.2.7.2.686 [id number] [facility] 2021-08-16 00:00:00 2021-08-16 00:00:00 Patient Secure Msg Doctor Unassigned, Amber [facility] MEDICAL OFFICE BUILDING 1.2840.114 350.1.13.10 4.2.7.2.686 [id number] [facility] 2021-08-16 00:00:00 2021-08-16 00:00:00 Patient Secure Msg Ca Martinez [facility] MEDICAL OFFICE BUILDING 1.2840.114 350.1.13.10 4.2.7.2.686 [id number] [facility] 2021-08-16 00:00:00 2021-08-16 00:00:00 Patient Secure Ca Caraballo [facility] 1..840.114 350.1.13.10 4.2.7.2.686 [id number] [facility] 2021-08-15 15:30:00 2021-08-15 16:16:42 Office Visit Adán Kim [facility] 1..840.114 350.1.13.10 4.2.7.2.686 [id number] [facility] 2021-08-15 15:30:00 2021-08-15 16:16:42 Outpatient ADÁN DIEGO [facility] [id number] [facility] 2021-08-15 15:30:00 2021-08-15 15:30:00 Outpatient ADÁN DIEGO [facility] [id number] [facility] 2021-08-15 15:30:00 2021-08-15 15:30:00 Outpatient ADÁN DIEGO [facility] [id number] [facility] 2021-08-15 15:30:00 2021-08-15 15:30:00 Outpatient ADÁN DIEGO [facility] [id number] [facility] 2021-08-15 09:27:00 2021-08-15 12:26:00 Emergency MAURA DALE [facility] ERT [id number] [facility] 2021-08-15 09:27:00 2021-08-15 12:26:00 Emergency Maura Cox [facility] 1..840.114 350.1.13.10 4.2.7.2.686 [id number] [facility] 2021-08-15 09:27:00 2021-08-15 12:26:00 Emergency X MAURA COX [facility] ERT [id number] [facility] 2021-08-15 00:00:00 2021-08-15 00:00:00 Patient Secure Msg Doctor Unassigned, Amber [facility] 1.84.114 350.1.13.10 4.2.7.2.686 [id number] [facility] 2021-08-14 13:25:00 2021-08-14 23:59:00 Outpatient CA ARAUZ [facility] [id number] [facility] 2021-08-14 13:25:00 2021-08-14 23:59:00 Outpatient CA ARAUZ [facility] [id number] [facility] 2021-08-14 13:25:00 2021-08-14 13:25:00 Outpatient CA ARAUZ [facility] [id number] [facility] 2021-08-14 12:19:07 2021-08-14 13:24:00 Outpatient CA ARAUZ [facility] [id number] [facility] 2021-08-14 12:19:07 2021-08-14 13:24:00 Outpatient CA ARAUZ [facility] [id number] [facility] 2021-08-14 12:30:00 2021-08-14 13:01:24 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, Filippo Martinez [facility] MEDICAL OFFICE BUILDING 1.840.114 350.1.13.10 4.2.7.2.686 [id number] [facility] 2021-08-14 12:30:00 2021-08-14 12:45:00 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, Filippo Martinez [facility] MEDICAL OFFICE BUILDING 1..840.114 350.1.13.10 4.2.7.2.686 [id number] [facility] 2021-08-14 11:30:00 2021-08-14 12:31:12 Office Visit VíctorCa cannon [facility]?KARLOSKassandra [facility] 1.2.840.114 350.1.13.10 4.2.7.2.686 [id number] [facility] 2021-08-14 11:30:00 2021-08-14 12:31:12 Outpatient R JUANRICHELLEIE [facility] [id number] [facility] 2021-08-14 00:00:00 2021-08-14 00:00:00 Patient Secure Msg Ca Martinez [facility]?KARLOSKassandra [facility] OFFICE BUILDING 1.2.840.114 350.1.13.10 4.2.7.2.686 [id number] [facility] 2021-08-14 00:00:00 2021-08-14 00:00:00 Patient Secure Msg Ca Martinez [facility]?KARLOSKassandra [facility] OFF[facility] BUILDING 1.2.840.114 350.1.13.10 4.2.7.2.686 [id number] [facility] 2021-08-09 14:45:00 2021-08-09 14:45:00 Outpatient R ADÁN KIM [facility] [id number] [facility] 2021-08-09 00:00:00 2021-08-09 00:00:00 Telephone VíctorCa cannon [facility] 1.2.840.114 350.1.13.10 4.2.7.2.686 [id number] [facility] 2021-08-08 11:30:00 2021-08-08 23:59:00 Outpatient R JUAN CA [facility] [id number] [facility] 2021-08-08 11:30:00 2021-08-08 23:59:00 Hospital Encounter JuanCa [facility] OFFICE BUILDING 1.2.840.114 350.1.13.10 4.2.7.2.686 [id number] [facility] 2021-08-08 11:15:00 2021-08-08 11:15:00 Outpatient R VÍCTORCA Cannon [facility] [id number] [facility] 2021-08-08 11:00:00 2021-08-08 11:00:00 Outpatient R VÍCTORCA Cannon [facility] [id number] [facility] 2021-08-08 00:00:00 2021-08-08 00:00:00 Patient Secure Msg Doctor Unassigned, Amber [facility] 1..840.114 350.1.13.10 4.2.7.2.686 [id number] [facility] 2021-08-07 09:30:00 2021-08-07 10:23:21 Office Visit VíctorCa cannon [facility] OFF[facility] BUILDING 1.2.840.114 350.1.13.10 4.2.7.2.686 [id number] [facility] 2021-08-07 09:30:00 2021-08-07 10:23:21 Outpatient R JUAN CA [facility] [id number] [facility] 2021-08-07 09:30:00 2021-08-07 09:30:00 Outpatient R JUANRICHELLEIE [facility] [id number] [facility] 2021-08-07 00:00:00 2021-08-07 00:00:00 Patient Secure Msg VíctorCa cannon [facility] OFF[facility] BUILDING 1.2.840.114 350.1.13.10 4.2.7.2.686 [id number] [facility] 2021-08-07 00:00:00 2021-08-07 00:00:00 Patient Secure Msg Juan Ca [facility] 1.840.114 350.1.13.10 4.2.7.2.686 [id number] [facility] 2021-08-07 00:00:00 2021-08-07 00:00:00 Patient [facility] 1..840.114 350.1.13.10 4.2.7.2.686 [id number] [facility] 2021-08-04 10:00:00 2021-08-04 10:00:00 Outpatient R PETRA RENO [facility] [id number] [facility] 2021-08-04 00:00:00 2021-08-04 00:00:00 Patient Secure [facility] 1.840.114 350.1.13.10 4.2.7.2.686 [id number] [facility] 2021-08-03 11:00:00 2021-08-03 12:48:43 Office Visit Juan Diaz [facility]. ..840.114 350.1.13.10 4.2.7.2.686 [id number] [facility] 2021-08-03 11:00:00 2021-08-03 12:48:43 Outpatient R JUAN DIAZ [facility] [id number] [facility] 2021-08-03 11:00:00 2021-08-03 11:00:00 Outpatient R JUAN DIAZ [facility] [id number] [facility] 2021-08-03 00:00:00 2021-08-03 00:00:00 Patient Secure Msg Onur, Desiree Cannon [facility] 1..840.114 350.1.13.10 4.2.7.2.686 [id number] [facility] 2021-08-02 00:00:00 2021-08-02 00:00:00 Telephone V[facility]ctorCa [facility] 1.2.840.114 350.1.13.10 4.2.7.2.686 [id number] [facility] 2021-07-21 08:00:00 2021-07-21 08:52:53 Outpatient DARRION QUIROZ HOWARD [facility] [id number] [facility] 2021-07-17 11:30:00 2021-07-17 11:30:00 Outpatient CA ARAUZ [facility] [id number] [facility] 2021-07-17 00:00:00 2021-07-17 00:00:00 Patient Secure Msg VíctorCa [facility] 1..840.114 350.1.13.10 4.2.7.2.686 [id number] [id number] [facility] 2021-06-19 00:00:00 2021-06-19 00:00:00 Telephone VíctorCa [facility] 1.2.840.114 350.1.13.10 4.2.7.2.686 [id number] [id number] [facility] 2021-06-09 00:00:00 2021-06-09 00:00:00 Telephone Reji [facility] 1..840.114 350.1.13.10 4.2.7.2.686 [id number] [facility] 2021-06-06 11:15:00 2021-06-06 11:15:00 Outpatient TETO BRANTLEY [facility] [id number] [facility] 2021-06-06 11:15:00 2021-06-06 11:15:00 Outpatient R ADOLFOTETO WYMAN [facility] [id number] [facility] 2021-06-02 15:45:00 2021-06-02 15:45:00 Outpatient R CLAUDETTE EVANS [facility] [id number] [facility] 2021-05-31 10:00:00 2021-05-31 10:46:31 Outpatient R VÍCTORCA Cannon [facility] [id number] [facility] 2021-05-31 10:00:00 2021-05-31 10:46:31 Office Visit Juan Ca [facility] MEDICAL OFFICE BUILDING 1.840.114 350.1.13.10 4.2.7.2.686 [id number] [id number] [facility] 2021-05-31 10:00:00 2021-05-31 10:46:31 Outpatient R VÍCTORCA Cannon [facility] [id number] [facility] 2021-05-31 00:00:00 2021-05-31 00:00:00 Orders Only Doctor Unassigned, Amber [facility] 1.84.114 350.1.13.10 4.2.7.2.686 [id number] [facility] 2021-05-26 00:00:00 2021-05-26 00:00:00 Telephone Skylar Groves [facility] MEDICAL OFFICE BUILDING 1.84.114 350.1.13.10 4.2.7.2.686 [id number] 044 [id number] [facility] 2021-05-26 00:00:00 2021-05-26 00:00:00 Patient Secure Msg Prasanna Vargas [facility] 1.84.114 350.1.13.10 4.2.7.2.686 [id number] [facility] 2021-05-25 14:00:00 2021-05-25 14:30:00 Telemedici ne Visit Skylar Groves [facility] 1..840.114 350.1.13.10 4.2.7.2.686 [id number] 044 [id number] [facility] 2021-05-25 14:00:00 2021-05-25 14:00:00 Outpatient R SKYLAR GROVES [facility] [id number] [facility] 2021-05-25 14:00:00 2021-05-25 14:00:00 Outpatient R SKYLAR GROVES [facility] [id number] [facility] 2021-05-25 00:00:00 2021-05-25 00:00:00 Patient Secure Msg Skylar Groves [facility] MEDICAL OFFICE BUILDING 1..840.114 350.1.13.10 4.2.7.2.686 [id number] [id number] [facility] 2021-05-25 00:00:00 2021-05-25 00:00:00 Patient Secure Skylar Wu [facility] MEDICAL OFFICE BUILDING 1..840.114 350.1.13.10 4.2.7.2.686 [id number] [id number] [facility] 2021-05-24 00:00:00 2021-05-24 00:00:00 Telephone Rad Serra K.HPilar [facility] 1..840.114 350.1.13.10 4.2.7.2.686 [id number] 059 [id number] [facility] 2021-05-24 00:00:00 2021-05-24 00:00:00 Patient Secure Msg Rad Serra K.HPilar [facility] 1.2840.114 350.1.13.10 4.2.7.2.686 [id number] [id number] [facility] 2021-05-24 00:00:00 2021-05-24 00:00:00 Patient Secure Claudette Hinds [facility] 1.2.840.114 350.1.13.10 4.2.7.2.686 [id number] [facility] 2021-05-23 10:00:00 2021-05-23 10:00:00 Outpatient R [facility] [id number] [facility] 2021-05-23 10:00:00 2021-05-23 10:00:00 Outpatient R [facility] [id number] [facility] 2021-05-23 00:00:00 2021-05-23 00:00:00 Patient Secure Claudette Hinds A [facility] OFFICE BUILDING 1.2.840.114 350.1.13.10 4.2.7.2.686 [id number] [id number] [facility] 2021-05-16 09:00:00 2021-05-16 09:00:00 Outpatient R TETO CARNES [facility] [id number] [facility] 2021-05-12 00:00:00 2021-05-12 00:00:00 Orders Only Doctor Unassigned, Amber [facility] 1.2.840.114 350.1.13.10 4.2.7.2.686 [id number] [facility] 2021-05-10 13:00:00 2021-05-10 13:00:00 Outpatient R CLAUDETTE EVANS [facility] [id number] [facility] 2021-05-10 13:00:00 2021-05-10 13:00:00 [facility] [id number] [facility] 2021-05-09 00:00:00 2021-05-09 00:00:00 Telephone Prasanna Vargas Jm [facility] 1.2.840.114 350.1.13.10 4.2.7.2.686 [id number] [facility] 2021-05-09 00:00:00 2021-05-09 00:00:00 Patient Secure Msg Serra, Rad KPilarHPilar [facility] BUILDING 1.2.840.114 350.1.13.10 4.2.7.2.686 [id number] 059 [id number] [facility] 2021-05-08 16:00:00 2021-05-08 16:00:00 Outpatient JE CRABTREE [facility] [id number] [facility] 2021-05-08 16:00:00 2021-05-08 16:00:00 Outpatient JE CRABTREE [facility] [id number] [facility] 2021-05-08 00:00:00 2021-05-08 00:00:00 Patient Secure Msg Serra, Rad Benoit.HPilar [facility] BUILDING 1.2.840.114 350.1.13.10 4.2.7.2.686 [id number] 059 [id number] [facility] 2021-05-08 00:00:00 2021-05-08 00:00:00 Patient Secure Msg SerraRad K.HPilar [facility] BUILDING 1.2.840.114 350.1.13.10 4.2.7.2.686 [id number] [id number] [facility] 2021-05-04 00:00:00 2021-05-04 00:00:00 Patient Secure Msg Serra, Sendzohra K.HPilar [facility] BUILDING 1.2840.114 350.1.13.10 4.2.7.2.686 [id number] [id number] [facility] 2021-05-04 00:00:00 2021-05-04 00:00:00 Patient [facility] 1.2.840.114 350.1.13.10 4.2.7.2.686 [id number] [id number] [facility] 2021-05-03 11:15:36 2021-05-03 23:59:00 Outpatient R RADHA [facility] [id number] [facility] 2021-05-03 11:15:36 2021-05-03 23:59:00 [facility] 1.2.840.114 350.1.13.10 4.2.7.2.686 [id number] [facility] 2021-05-03 00:00:00 2021-05-03 00:00:00 Telephone Claudette Evans [facility] MEDICAL OFFICE BUILDING 1.2.840.114 350.1.13.10 4.2.7.2.686 [id number] 044 [id number] [facility] 2021-05-02 00:00:00 2021-05-02 00:00:00 Telephone Rad Serra [facility] BUILDING 1.2.840.114 350.1.13.10 4.2.7.2.686 [id number] [id number] [facility] 2021-05-02 00:00:00 2021-05-02 00:00:00 Patient Secure Msg Claudette Evans [facility] MEDICAL OFFICE BUILDING 1.2.840.114 350.1.13.10 4.2.7.2.686 [id number] 044 [id number] [facility] 2021-05-02 00:00:00 2021-05-02 00:00:00 Telephone Claudette Evans [facility] OFFICE BUILDING 1.2.840.114 350.1.13.10 4.2.7.2.686 [id number] 044 [id number] [facility] 2021-05-02 00:00:00 2021-05-02 00:00:00 Patient Secure Msg Rad Serra [facility] PROFESSIO NAL BUILDING 1.2.840.114 350.1.13.10 4.2.7.2.686 [id number] 059 [id number] [facility] 2021-05-02 00:00:00 2021-05-02 00:00:00 Patient Secure Msg Claudette Evans [facility] OFFICE BUILDING 1.2.840.114 350.1.13.10 4.2.7.2.686 [id number] 044 [id number] [facility] 2021-04-28 00:00:00 2021-04-28 00:00:00 Patient Secure Msg Claudette Evans [facility] OFFICE BUILDING 1.2.840.114 350.1.13.10 4.2.7.2.686 [id number] [id number] [facility] 2021-04-27 14:24:00 2021-04-27 15:49:00 Emergency X MAGGIE HAMILTON [facility] E[facility] [id number] [facility] 2021-04-27 14:24:00 2021-04-27 15:49:00 Emergency Maggie Hamilton [facility] 1.2.840.114 350.1.13.10 4.2.7.2.686 [id number] [facility] 2021-04-27 11:15:00 2021-04-27 11:30:00 Laboratory Only Only, Ang Db Test Unknown, Attending Thony Johnson [facility] 1.284.114 350.1.13.10 4.2.7.2.686 [id number] [facility] 2021-04-27 11:15:00 2021-04-27 11:15:00 Outpatient THONY LUIS [facility] [id number] [facility] 2021-04-27 00:00:00 2021-04-27 00:00:00 Orders Only Doctor Unassigned, Amber [facility] 1.284114 350.1.13.10 4.2.7.2.686 [id number] [facility] 2021-04-20 15:00:00 2021-04-20 15:00:00 Outpatient SCOTT RENEE [facility] [id number] [facility] 2021-04-13 00:00:00 2021-04-13 00:00:00 Patient Secure Msg SonnyBrian ibrahimlgbonnie Cannon [facility] MEDICAL OFFICE BUILDING 1.284114 350.1.13.10 4.2.7.2.686 [id number] 044 [id number] [facility] 2021-04-12 00:00:00 2021-04-12 00:00:00 Telephone Sonny Briankacey Kassandra [facility] MEDICAL OFFICE BUILDING 1.284114 350.1.13.10 4.2.7.2.686 [id number] 044 [id number] [facility] 2021-03-27 00:00:00 2021-03-27 00:00:00 Telephone Prasanna Vargas [facility] BUILDING 1.284114 350.1.13.10 4.2.7.2.686 [id number] [facility] 2021-03-24 00:00:00 2021-03-24 00:00:00 Patient Secure Msg Doctor Unassigned, Amber [facility] 1.84.114 350.1.13.10 4.2.7.2.686 [id number] [facility] 2021-03-23 13:30:00 2021-03-23 13:30:00 Outpatient R PINO HOFF [facility] [id number] [facility] 2021-03-23 13:30:00 2021-03-23 13:30:00 Outpatient R KAVYA [facility] [id number] [facility] 2021-03-22 09:20:00 2021-03-22 09:20:00 Outpatient R NEHEMIAH MEEKSHIL ATANASJABIER, STRAHIL [facility] [id number] [facility] 2021-03-22 09:20:00 2021-03-22 09:20:00 Outpatient R JAYCE MEEKSL JEANNA, STRAHIL [facility] [id number] [facility] 2021-03-20 00:00:00 2021-03-20 00:00:00 Outpatient R CLAUDETTE EVANS [facility] [id number] [facility] 2021-03-18 00:00:00 2021-03-18 00:00:00 Case Management Claudette Evans [facility] MEDICAL OFFICE BUILDING 1.840.114 350.1.13.10 4.2.7.2.686 [id number] [id number] [facility] 2021-03-16 11:16:07 2021-03-16 11:31:07 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, Filippo - Claudette Goodson [facility] MEDICAL OFFICE BUILDING 1.840.114 350.1.13.10 4.2.7.2.686 [id number] [facility] 2021-03-16 11:30:00 2021-03-16 11:30:00 Outpatient R CLAUDETTE EVANS [facility] [id number] [facility] 2021-03-16 11:00:00 2021-03-16 11:14:45 Outpatient R CLAUDETTE EVANS [facility] [id number] [facility] 2021-03-16 10:00:58 2021-03-16 11:14:45 Office Visit Claudette Evans [facility] ANGLEROBERTA BABIN?[facility] MEDICAL OFFICE BUILDING 1.2.840.114 350.1.13.10 4.2.7.2.686 [id number] [id number] [facility] 2021-03-16 00:00:00 2021-03-16 00:00:00 Patient Secure Msg Claudette [facility] MEDICAL OFFICE BUILDING 1.2.840.114 350.1.13.10 4.2.7.2.686 [id number] 044 [id number] [facility] 2021-03-02 16:15:00 2021-03-02 16:15:00 Outpatient R CLAUDETTE EVANS [facility] [id number] [facility] 2021-02-28 18:30:00 2021-02-28 18:30:00 Outpatient R WILLIE MEDRANO [facility] [id number] [facility] 2021-02-28 00:00:00 2021-02-28 00:00:00 Telephone Claudette Evans [facility] Medical Office Building 1.2.840.114 350.1.13.10 4.2.7.2.686 [id number] [id number] [facility] 2021-02-27 09:00:00 2021-02-27 09:00:00 Outpatient R AMELIA HAMMOND [facility] [id number] [facility] 2021-02-23 00:00:00 2021-02-23 00:00:00 Telephone Claudette Evans [facility] Talya?[facility] Medical Office Building 1.2.840.114 350.1.13.10 4.2.7.2.686 [id number] 044 [id number] [facility] 2021-02-10 18:12:00 2021-02-10 23:39:00 Emergency Kaycee M[facility]dez [facility] 1.2.840.114 350.1.13.10 4.2.7.2.686 [id number] [facility] 2021-02-10 00:00:00 2021-02-10 00:00:00 Patient Secure Msg Claudette Evans [facility] MEDICAL OFFICE BUILDING 1.2840.114 350.1.13.10 4.2.7.2.686 [id number] 044 [id number] [facility] 2021-02-10 00:00:00 2021-02-10 00:00:00 Patient Secure Msg Branden Evansful Kassandra [facility] MEDICAL OFFICE BUILDING 1.2.840.114 350.1.13.10 4.2.7.2.686 [id number] 044 [id number] [facility] 2021-02-10 00:00:00 2021-02-10 00:00:00 Patient Secure Msg Branden Evansful Kassandra [facility] FOFA[facility]E?[facility] MEDICAL OFFICE BUILDING 1.2.840.114 350.1.13.10 4.2.7.2.686 [id number] [facility] 2021-02-10 00:00:00 2021-02-10 00:00:00 Patient Secure Msg Branden Evansful Kassandra [facility] MEDICAL OFFICE BUILDING 1.2.840.114 350.1.13.10 4.2.7.2.686 [id number] 044 [id number] [facility] 2021-02-09 13:40:00 2021-02-09 23:59:00 Hospital Encounter Claudette Evans [facility] Medical Office Building 1.2.840.114 350.1.13.10 4.2.7.2.686 [id number] [facility] 2021-02-09 13:49:05 2021-02-09 14:04:05 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, Ang - Db Claudette Evans [facility] aMurice Babin?[facility] Medical Office Building 1.2.840.114 350.1.13.10 4.2.7.2.686 [id number] [facility] 2021-02-09 12:23:13 2021-02-09 13:47:12 Office Visit Claudette Evans [facility] Maurice Babin?[facility] Medical Office Building 1..840.114 350.1.13.10 4.2.7.2.686 [id number] [id number] [facility] 2021-02-09 13:00:00 2021-02-09 13:00:00 Outpatient R CLAUDETTE EVANS [facility] [id number] [facility] 2021-02-09 00:00:00 2021-02-09 00:00:00 Patient Secure Msg Doctor Unassigned, Amber [facility] 1..840.114 350.1.13.10 4.2.7.2.686 [id number] [facility] 2021-02-08 10:20:00 2021-02-08 10:20:00 Outpatient R ADITYA MEEKS STRAHIL [facility] [id number] [facility] 2021-02-07 00:00:00 2021-02-07 00:00:00 Patient Secure Msg Claudette Evans [facility] MEDICAL OFFICE BUILDING 1.2.840.114 350.1.13.10 4.2.7.2.686 [id number] [id number] [facility] 2021-02-02 10:30:00 2021-02-02 10:30:00 Outpatient R SKYLAR GROVES [facility] [id number] [facility] 2021-02-02 00:00:00 2021-02-02 00:00:00 Telephone Claudette Evans [facility]of[facility] Medical Office Building 1..840.114 350.1.13.10 4.2.7.2.686 [id number] [id number] [facility] 2021-02-01 08:30:00 2021-02-01 08:30:00 Outpatient R SKYLAR GROVES [facility] [id number] [facility] 2021-01-31 18:44:04 2021-01-31 19:41:26 Urgent Care Noelle Boydtany [facility]in?[facility] Medical Office Building 1..840.114 350.1.13.10 4.2.7.2.686 [id number] [facility] 2021-01-31 19:00:00 2021-01-31 19:00:00 Outpatient R FLACO BYOD [facility] [id number] [facility] 2021-01-31 00:00:00 2021-01-31 00:00:00 Telephone Claudette Evans [facility] Medical Office Building 1..840.114 350.1.13.10 4.2.7.2.686 [id number] [facility] 2021-01-31 00:00:00 2021-01-31 00:00:00 Patient Secure Msg Branden Evansful Kassandra [facility]E?[facility] MEDICAL OFFICE BUILDING 1..840.114 350.1.13.10 4.2.7.2.686 [id number] 044 [id number] [facility] 2021-01-30 00:00:00 2021-01-30 00:00:00 Telephone Rad Serra [facility] Building 1..840.114 350.1.13.10 4.2.7.2.686 [id number] 059 [id number] [facility] 2021-01-30 00:00:00 2021-01-30 00:00:00 Patient Secure Msg Sonny Briankacey Cannon [facility] OFFICE BUILDING ONE 1..840.114 350.1.13.10 4.2.7.2.686 [id number] 044 [id number] [facility] 2021-01-26 14:00:00 2021-01-26 14:00:00 Outpatient R RAD SERRA [facility] [id number] [facility] 2021-01-26 00:00:00 2021-01-26 00:00:00 Patient Secure Msg Skylar Groves [facility]?KARLOSKassandra [facility] MEDICAL OFFICE BUILDING 1..840.114 350.1.13.10 4.2.7.2.686 [id number] 044 [id number] [facility] 2021-01-25 15:00:00 2021-01-25 15:00:00 Outpatient R [facility] [id number] [facility] 2021-01-21 00:00:00 2021-01-21 00:00:00 Patient Secure Msg Skylar Groves [facility] MEDICAL OFFICE BUILDING 1..840.114 350.1.13.10 4.2.7.2.686 [id number] 044 [id number] [facility] 2021-01-20 16:51:22 2021-01-20 17:12:41 Telemedici ne Visit Skylar Groves [facility] [place] Medical Office Building 1.114 350.1.13.10 4.2.7.2.686 [id number] 044 [id number] [facility] 2021-01-20 16:30:00 2021-01-20 16:30:00 Outpatient R SKYLAR GROVES [facility] [id number] [facility] 2021-01-19 10:15:00 2021-01-19 10:15:00 Outpatient R RICKY KAYLEY [facility] [id number] [facility] 2021-01-14 00:00:00 2021-01-14 00:00:00 Case Management Kassandra Benavides [facility] 1.114 350.1.13.10 4.2.7.2.686 [id number] [facility] 2021-01-14 00:00:00 2021-01-14 00:00:00 Patient Secure Msg Doctor Unassigned, Amber [facility] 1.114 350.1.13.10 4.2.7.2.686 [id number] [id number] [facility] 2021-01-12 16:10:00 2021-01-12 19:45:00 Emergency Hany [facility] 1.114 350.1.13.10 4.2.7.2.686 [id number] [facility] 2021-01-12 15:20:00 2021-01-12 15:20:00 Outpatient R WILLIE MEDRANO [facility] [id number] [facility] 2021-01-12 14:46:57 2021-01-12 15:06:57 Urgent Care Thony Johnson Willie [facility]?Karloskassandra [facility] Medical Office Building 1.84.114 350.1.13.10 4.2.7.2.686 [id number] [facility] 2020-12-26 15:30:00 2020-12-26 16:13:32 Outpatient R PONCE RAD [facility] [id number] [facility] 2020-12-26 15:30:00 2020-12-26 16:13:32 Office Visit Rad SerraPauloPilar [facility] BUILDING 1.2.840.114 350.1.13.10 4.2.7.2.686 [id number] [facility] 2020-12-26 15:00:32 2020-12-26 16:13:32 Office Visit Rad Serra [facility] Building 1.2.840.114 350.1.13.10 4.2.7.2.686 [id number] [facility] 2020-12-26 15:30:00 2020-12-26 15:30:00 Outpatient R SERRA RAD [facility] [id number] [facility] 2020-11-29 00:00:00 2020-11-29 00:00:00 Patient Secure Msg Rad SerraPauloPilar [facility] BUILDING 1.2.840.114 350.1.13.10 4.2.7.2.686 [id number] [facility] 2020-11-22 11:00:00 2020-11-22 11:00:00 Outpatient R DESIREE MOHR [facility] [id number] [facility] 2020-11-10 18:42:46 2020-11-10 19:53:43 Urgent Care Alissa Collins [facility] Office Building One 1.2.840.114 350.1.13.10 4.2.7.2.686 [id number] 2020-11-10 19:00:00 2020-11-10 19:00:00 Outpatient R [facility] [id number] [facility] 2020-10-31 18:52:00 2020-10-31 22:15:00 Emergency Kaycee Méndez [facility] 1.2.840.114 350.1.13.10 4.2.7.2.686 [id number] 2020-10-31 19:00:00 2020-10-31 19:00:00 Outpatient Farzana LOVEALCEMARILYN ESPARZABEBA [facility] [id number] [facility] 2020-10-31 00:00:00 2020-10-31 00:00:00 Orders Only Doctor Unassigned, Amber [facility] 1.2.840.114 350.1.13.10 4.2.7.2.686 [id number] 2020-10-20 14:02:00 2020-10-20 17:13:00 [facility] 1.2.840.114 350.1.13.10 4.2.7.2.686 [id number] 2020-10-18 00:00:00 2020-10-18 00:00:00 Patient Secure Msg Prasanna Vargas [facility] PROFESSIO [facility] 1.2840.114 350.1.13.10 4.2.7.2.686 [id number] [facility] 2020-10-14 10:00:00 2020-10-14 23:59:00 Hospital Encounter Prasanna Vargas [facility] 1.2.840.114 350.1.13.10 4.2.7.2.686 [id number] 2020-10-14 13:30:00 2020-10-14 13:30:00 Outpatient DESIREE STONE [facility] [id number] [facility] 2020-10-11 00:00:00 2020-10-11 00:00:00 Patient Secure Msg Prasanna [facility]arg[facility] 1.2.840.114 350.1.13.10 4.2.7.2.686 [id number] [facility] 2020-10-11 00:00:00 2020-10-11 00:00:00 Patient Secure Msg Prasanna Vargsa [facility] BUILDING 1.2.840.114 350.1.13.10 4.2.7.2.686 [id number] [facility] 2020-10-09 12:00:00 2020-10-09 15:57:00 Emergency Krystle Lydia [facility] 1.2.840.114 350.1.13.10 4.2.7.2.686 [id number] 084 [id number] 2020-10-07 00:00:00 2020-10-07 00:00:00 Patient Secure Msg Prasanna Vargas [facility] BUILDING 1.2.840.114 350.1.13.10 4.2.7.2.686 [id number] [facility] 2020-10-07 00:00:00 2020-10-07 00:00:00 Patient Secure Msg Prasanna Vargas [facility] 1.2.840.114 350.1.13.10 4.2.7.2.686 [id number] [facility] 2020-10-07 00:00:00 2020-10-07 00:00:00 Patient Secure [facility] 1.2.840.114 350.1.13.10 4.2.7.2.686 [id number] [facility] 2020-10-07 00:00:00 2020-10-07 00:00:00 Patient Secure Msg Prasanna Vargas [facility] 1.2.840.114 350.1.13.10 4.2.7.2.686 [id number] [facility] 2020-10-07 00:00:00 2020-10-07 00:00:00 Patient Secure Msg [facility] 1.2.840.114 350.1.13.10 4.2.7.2.686 [id number] [facility] 2020-10-07 00:00:00 2020-10-07 00:00:00 Patient Secure Msg Prasanna Vargas [facility] 1.2.840.114 350.1.13.10 4.2.7.2.686 [id number] [facility] 2020-10-07 00:00:00 2020-10-07 00:00:00 Patient Secure Msg Prasanna Vargas [facility] 1.2.840.114 350.1.13.10 4.2.7.2.686 [id number] [facility] 2020-10-06 08:53:00 2020-10-06 09:46:44 [facility] 1.2.840.114 350.1.13.10 4.2.7.2.686 [id number] 2020-10-06 09:30:00 2020-10-06 09:30:00 Outpatient R PRASANNA VARGAS [facility] [id number] [facility] 2020-10-04 14:00:00 2020-10-04 14:00:00 Outpatient DESIREE STONE [facility] [id number] [facility] 2020-09-30 10:30:00 2020-09-30 10:30:00 Outpatient R FIFI MOHRINE [facility] [id number] [facility] 2020-09-29 13:45:00 2020-09-29 13:45:00 Outpatient R JASPALPREET [facility] [id number] [facility] 2020-09-06 15:30:00 2020-09-06 15:30:00 Outpatient R ALICIAPRASANNA [facility] [id number] [facility] 2020-09-05 00:00:00 2020-09-05 00:00:00 [facility] 1.2.840.114 350.1.13.10 4.2.7.2.686 [id number] [facility] 2020-09-02 15:40:00 2020-09-02 15:40:00 Outpatient DARRION QUIROZ HOWARD [facility] [id number] [facility] 2020-08-31 10:30:00 2020-08-31 10:30:00 Outpatient R RAD SERRA [facility] [id number] [facility] 2020-08-31 00:00:00 2020-08-31 00:00:00 [facility] 1.2.840.114 350.1.13.10 4.2.7.2.686 [id number] [facility] 2020-08-18 09:30:00 2020-08-18 09:30:00 Outpatient R ALICIA PRASANNA [facility] [id number] [facility] 2020-08-11 13:30:00 2020-08-11 13:30:00 Outpatient R PRASANNA VARGAS [facility] [id number] [facility] 2020-08-04 14:00:00 2020-08-04 14:00:00 Outpatient R SCOTT GILBERT [facility] [id number] [facility] 2020-07-28 10:30:00 2020-07-28 10:30:00 Outpatient R RAD SERRA [facility] [id number] [facility] 2020-06-30 16:15:00 2020-06-30 16:15:00 Outpatient R CLAUDETTE EVANS [facility] [id number] [facility] 2020-06-17 15:00:00 2020-06-17 15:00:00 Outpatient DARRION QUIROZ HOWARD [facility] [id number] [facility] 2020-06-16 15:30:00 2020-06-16 15:30:00 Outpatient RAD MATAMOROS [facility] [id number] [facility] 2020-06-09 12:30:00 2020-06-09 12:30:00 Outpatient NI YUNG [facility] [id number] [facility] 2020-06-08 08:00:00 2020-06-08 08:00:00 Outpatient NI YUNG [facility] [id number] [facility] 2020-06-02 09:00:00 2020-06-02 09:00:00 Outpatient R RAD SERRA [facility] [id number] [facility] 2020-05-28 10:00:00 2020-05-28 10:00:00 Outpatient R BEBA KAUR [facility] [id number] [facility] 2020-05-26 00:00:00 2020-05-26 00:00:00 Patient Secure Msg Claudette vEans [facility] 1.2.840.114 350.1.13.10 4.2.7.2.686 [id number] [facility] 2020-05-24 10:00:00 2020-05-24 10:00:00 Outpatient NI YUNG [facility] [id number] [facility] 2020-05-24 00:00:00 2020-05-24 00:00:00 Patient Secure Msg Doctor Unassigned, Amber [facility] BUILDING 1.2.840.114 350.1.13.10 4.2.7.2.686 [id number] [facility] 2020-05-19 16:30:00 2020-05-19 16:30:00 Outpatient R OSITO SANTIAGO [facility] [id number] [facility] 2020-05-17 13:00:00 2020-05-17 13:00:00 Outpatient DARRION QUIROZ HOWARD [facility] [id number] [facility] 2020-05-16 16:00:00 2020-05-16 16:00:00 Outpatient CLAUDETTE CEDILLO [facility] [id number] [facility] 2020-05-09 00:00:00 2020-05-09 00:00:00 Patient Secure Brian Hindskacey Kassandra [facility] OFFICE BUILDING ONE 1.2.840.114 350.1.13.10 4.2.7.2.686 [id number] [facility] 2020-05-08 10:24:00 2020-05-08 13:03:00 Emergency X OLAMIDE GARVIN [facility] ERT [id number] [facility] 2020-05-03 15:00:00 2020-05-03 15:00:00 Outpatient R CLAUDETTE EVANS [facility] [id number] [facility] 2020-04-30 11:14:00 2020-05-01 15:50:00 Outpatient X RODRIGUEZ HOFF [facility] [place] [id number] [facility] 2020-04-30 10:20:00 2020-04-30 10:20:00 Outpatient R ROSALES SHAY [facility] [id number] [facility] 2020-04-30 10:15:00 2020-04-30 10:15:00 Outpatient R JASPALROSALES [facility] [id number] [facility] 2020-04-29 00:00:00 2020-04-29 00:00:00 Patient Secure Osito Rodrigues [facility] 1.840.114 350.1.13.10 4.2.7.2.686 [id number] [facility] 2020-04-28 14:00:00 2020-04-28 14:00:00 Outpatient R JACKLAURENOSITO [facility] [id number] [facility] 2020-04-25 16:15:00 2020-04-25 16:15:00 Outpatient R CLAUDETTE EVANS [facility] [id number] [facility] 2020-04-22 00:00:00 2020-04-22 00:00:00 [facility] 1..840.114 350.1.13.10 4.2.7.2.686 [id number] [facility] 2020-04-18 10:00:00 2020-04-18 10:00:00 Outpatient R JACKLAUREN HuiSIR [facility] [id number] [facility] 2020-04-15 10:30:00 2020-04-15 10:30:00 Outpatient R RAD SERRA [facility] [id number] [facility] 2020-04-12 13:38:00 2020-04-13 16:25:00 [facility] [id number] [facility] 2020-03-17 16:15:00 2020-03-17 16:15:00 Outpatient R TETO CARNES [facility] [id number] [facility] 2020-03-04 00:00:00 2020-03-04 00:00:[address] [facility] 1..840.114 350.1.13.10 4.2.7.2.686 [id number] 2020-02-25 16:00:00 2020-02-25 16:00:00 Outpatient R OSITO SANTIAGO [facility] [id number] [facility] 2020 14:00:00 2020 14:00:00 Outpatient R TETO CARNES [facility] [id number] [facility] 2020-02-08 10:30:00 2020-02-08 10:30:00 Outpatient R PRASANNA VARGAS [facility] [id number] [facility] 2020-02-05 00:00:00 2020-02-05 00:00:00 Patient Secure Msg Prasanna Vargas [facility] 1.2.840.114 350.1.13.10 4.2.7.2.686 [id number] [facility] 2020-02-04 13:30:00 2020-02-04 13:30:00 Outpatient R OSITO SANTIAGO [facility] [id number] [facility] 2020-01-23 10:15:00 2020-01-23 10:15:00 Outpatient R [facility] [id number] [facility] 2020-01-21 13:00:00 2020-01-21 13:00:00 Outpatient R OSITO SANTIAGO [facility] [id number] [facility] 2020-01-14 16:00:00 2020-01-14 16:00:00 Outpatient R OSITO SANTIAGO [facility] [id number] [facility] 2020-01-05 13:45:00 2020-01-05 13:45:00 Outpatient R PRASANNA VARGAS [facility] [id number] [facility] 2020-01-05 00:00:00 2020-01-05 00:00:00 Patient Secure Msg Prasanna Vargas [facility] 1.2.840.114 350.1.13.10 4.2.7.2.686 [id number] [facility] 2019-12-03 10:30:00 2019-12-03 10:30:00 Outpatient Farzana ELAMALIKSOPHIACRICKET [facility] [id number] [facility] 2019-11-27 11:00:00 2019-11-27 11:00:00 Outpatient Farzana CARNES TETO [facility] [id number] [facility] 2019-11-26 00:00:00 2019-11-26 00:00:00 Patient Secure Msg Doctor Unassigned, Amber [facility] 1..840.114 350.1.13.10 4.2.7.2.686 [id number] [facility] 2019-11-25 08:00:00 2019-11-25 08:00:00 Outpatient Farzana CARNES TETO [facility] [id number] [facility] 2019-11-23 00:00:00 2019-11-23 00:00:00 Patient Secure Msg Doctor Unassigned, Amber [facility] 1..840.114 350.1.13.10 4.2.7.2.686 [id number] [facility] 2019-11-18 10:00:00 2019-11-18 10:00:00 [facility] [id number] 2019-11-17 00:00:00 2019-11-17 00:00:00 Patient Secure Msg Doctor Unassigned, Amber [facility] 1..840.114 350.1.13.10 4.2.7.2.686 [id number] [facility] 2019-11-13 00:00:00 2019-11-13 00:00:00 Patient Secure Msg Prasanna Vargas [facility] 1..840.114 350.1.13.10 4.2.7.2.686 [id number] [facility] 2019-09-02 11:00:00 2019-09-02 11:00:00 Outpatient R CRICKET TAYLOR [facility] [id number] [facility] 2019-08-14 10:15:00 2019-08-14 10:15:00 Outpatient R TETO CARNES [facility] [id number] [facility] 2019-08-13 11:00:00 2019-08-13 11:00:00 Outpatient R ELAMALIKCRICKET [facility] [id number] [facility] 2019-08-12 09:00:00 2019-08-12 09:00:00 Outpatient R [facility] [id number] [facility] 2019-07-20 16:06:00 2019-07-20 16:06:00 Outpatient P PRASANNA VARGAS [facility] [id number] [facility] 2019-07-20 08:15:00 2019-07-20 08:15:00 Outpatient R ELAMALIKCRICKET [facility] [id number] [facility] 2019-07-13 08:00:00 2019-07-13 08:00:00 Outpatient R ELAMALIKCRICKET [facility] [id number] [facility] 2019-07-12 13:39:00 2019-07-12 13:39:00 Outpatient PRASANNA HERRERA [facility] [id number] [facility] 2019-07-06 13:00:00 2019-07-06 13:00:00 Outpatient R AKINLYNSEYCRICKET [facility] [id number] [facility] 2019-06-13 10:40:46 2019-06-13 12:35:00 Emergency X LARUENLEROYSAHRASARAHI [facility] ERT [id number] [facility] 2019-05-13 23:07:00 2019-05-14 09:15:00 Outpatient PRASANNA HERRERA [facility] [id number] [facility] Results Test Description Test Time Test Comments Results Result Co mments Source [facility] 20:22:43* Test Item Value Reference Range Interpretation Comme nts LIPASE (test code = 8485825541) 46 U/L 0-220 Lab Interpretation (test cod e = 66929-9) Normal [facility] [id number] 20:10:00* Test Item Value Reference Range Interpretation Comme nts POCT PREG (test code = 1605) Negative On board controls acceptable with C Line (test code = 3574) Yes POCT PREG LOT # (test code = 3575) POCT PREG TEST DATE ( test code = 3576) [facility] WITH [id number] 20:08:02* Test Item Value Reference Range Interpretation [...] 33.2 g/dL 31.6-35.1 RDW-SD (test code = 56781-1) 41.0 fL 39.0-49.9 RDW-CV (test code = 788-0) 12.7 % 12.0-15.5 PLT (test code = 777-3) 339 166-358 MPV (test code = 93877-0) 9.7 fL 9.5-12.9 NRBC/100 WBC (test code = 0607483441) 0.0 0.0-10.0 NRBC x10^3 (test code = 8719934319) See_Comment [Automated messa ge] The system which generated this result transmitted reference range: 10*3/?L. The reference range was not used to interpret this result as normal/abnormal. GRAN MAT (NEUT) % (test code = 770-8) 70.5 % IMM GRAN % (test code = 8726487057) 0.30 % LYMPH % (test code = 736-9) 24.0 % MONO % (test code = 5905-5) 3.9 % EOS % (test code = 713-8) 0.8 % BASO % (test code = 706-2) 0.5 % GRAN MAT x10^3(ANC) (test code = 7215490926) 5.58 10*3/uL 1.88-7.09 IMM GRAN x10^3 (test code = 8104083164) 0.00-0.06 LYMPH x10^3 (test code = 731-0) 1.90 10*3/uL 1.32-3.29 MONO x10^3 (test code = 742-7) 0.31 10*3/uL 0.33-0.92 L EOS x10^3 (test code = 711-2) 0.06 10*3/uL 0.03-0.39 BASO x10^3 (test code = 704-7) 0.04 10*3/uL 0.01-0.07 Lab Interpretation (test code = 96974-3) Abnormal [facility] Abdomen pelvis wo [id number] 15:32:03EXAM: CT ABDOMEN PELVIS WO CONTRAST ORDERING [...] Cesareanchanges are noted in the suprapubic soft tissues.[facility]. Metabolic Panel ([id number])2024-04-19 15:11:18* Test Item Value Reference Range Interpretation Comme nts NA (test code = 5405757637) 140 mmol/L 135-145 K (test code = 0351292402) 4.1 mmol/L 3.5-5.0 CL (test code = 5968085158) 108 mmol/L 98-108 CO2 TOTAL (test code = 5107694776) 24 mmol/L 23-31 AGAP (test code = 0795027742) 8 2-16 BUN (test code = 5452823864) 11 mg/dL 7-23 GLUCOSE (test code = 3543578524) 105 mg/dL 70-110 CREATININE (test code = 2160-0) 0.70 mg/dL 0.50-1.04 TOTAL BILI (test code = 9634354661) 1.0 mg/dL 0.1-1.1 CALCIUM (test code = 3271191332) 9.4 mg/dL 8.6-10.6 T PROTEIN (test code = 0685075146) 7.6 g/dL 6.3-8.2 ALBUMIN (test code = 3732609685) 4.7 g/dL 3.5-5.0 ALK PHOS (test code = 9981936489) 75 U/L 34-122 ALTv (test code = 1742-6) 28 U/L 5-35 AST(SGOT) (test code = 0003113864) 29 U/L 13-40 eGFR (test code = 03729-5) 120.2 mL/min/1.73m2 CKD-EPI eGFR (20 21). Assuming creatinine has been stable day-to-day for at least three months, the eGFR indicates Category G1 (>= 90 mL/min/1.73 m2) [facility]2024-12-08 15:10:38* Test Item Value Reference Range Interpretation Comme nts LIPASE (test code = 2158551679) 52 U/L 0-220 Lab Interpretation (test cod e = 09572-7) Normal [facility] with [id number] 14:58:19* Test Item Value Reference Range Interpretation [...] 32.7 g/dL 31.6-35.1 RDW-SD (test code = 51862-9) 44.6 fL 39.0-49.9 RDW-CV (test code = 788-0) 13.5 % 12.0-15.5 PLT (test code = 777-3) 347 166-358 MPV (test code = 57674-6) 9.5 fL 9.5-12.9 NRBC/100 WBC (test code = 6834618277) 0.0 0.0-10.0 NRBC x10^3 (test code = 6304768694) See_Comment [Automated messa ge] The system which generated this result transmitted reference range: 10*3/?L. The reference range was not used to interpret this result as normal/abnormal. GRAN MAT (NEUT) % (test code = 770-8) 64.6 % IMM GRAN % (test code = 3615893221) 0.30 % LYMPH % (test code = 736-9) 26.0 % MONO % (test code = 5905-5) 4.2 % EOS % (test code = 713-8) 4.0 % BASO % (test code = 706-2) 0.9 % GRAN MAT x10^3(ANC) (test code = 7512161442) 3.74 10*3/uL 1.88-7.09 IMM GRAN x10^3 (test code = 5848218542) 0.00-0.06 LYMPH x10^3 (test code = 731-0) 1.50 10*3/uL 1.32-3.29 MONO x10^3 (test code = 742-7) 0.24 10*3/uL 0.33-0.92 L EOS x10^3 (test code = 711-2) 0.23 10*3/uL 0.03-0.39 BASO x10^3 (test code = 704-7) 0.05 10*3/uL 0.01-0.07 Lab Interpretation (test code = 41986-3) Abnormal [facility] [id number] 14:21:00* Test Item Value Reference Range Interpretation Comme nts POCT PREG (test code = 1605) Negative On board controls acceptable with C Line (test code = 3574) Yes POCT PREG LOT # (test code = 3575) [id number] POCT PREG TEST DATE ( test code = 3576) 02/14/2025 Lab Interpretation (test cod e = 26667-2) Normal [facility]XR ANKLE <3 VW [id number] 19:14:25 INDICATION: ?Pain after trauma ORDERING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 [facility] WITH [id number] 15:35:41* Test Item Value Reference Range Interpretation [...] 34.3 g/dL 31.6-35.1 RDW-SD (test code = 40789-7) 41.3 fL 39.0-49.9 RDW-CV (test code = 788-0) 13.2 % 12.0-15.5 PLT (test code = 777-3) 329 166-358 MPV (test code = 45902-2) 9.9 fL 9.5-12.9 NRBC/100 WBC (test code = 1107363736) 0.0 0.0-10.0 NRBC x10^3 (test code = 4513517249) See_Comment [Automated messa ge] The system which generated this result transmitted reference range: 10*3/?L. The reference range was not used to interpret this result as normal/abnormal. GRAN MAT (NEUT) % (test code = 770-8) 66.5 % IMM GRAN % (test code = 2846371093) 0.30 % LYMPH % (test code = 736-9) 26.8 % MONO % (test code = 5905-5) 3.5 % EOS % (test code = 713-8) 2.3 % BASO % (test code = 706-2) 0.6 % GRAN MAT x10^3(ANC) (test code = 1047459609) 5.71 10*3/uL 1.88-7.09 IMM GRAN x10^3 (test code = 4449825888) 0.03 10*3/uL 0.00-0.06 LYMPH x10^3 (test code = 731-0) 2.30 10*3/uL 1.32-3.29 MONO x10^3 (test code = 742-7) 0.30 10*3/uL 0.33-0.92 L EOS x10^3 (test code = 711-2) 0.20 10*3/uL 0.03-0.39 BASO x10^3 (test code = 704-7) 0.05 10*3/uL 0.01-0.07 Lab Interpretation (test code = 81124-7) Abnormal [facility] WITH [id number] 15:35:41* Test Item Value Reference Range Interpretation [...] 34.3 g/dL 31.6-35.1 RDW-SD (test code = 49257-5) 41.3 fL 39.0-49.9 RDW-CV (test code = 788-0) 13.2 % 12.0-15.5 PLT (test code = 777-3) 329 166-358 MPV (test code = 41859-8) 9.9 fL 9.5-12.9 NRBC/100 WBC (test code = 5649221206) 0.0 0.0-10.0 NRBC x10^3 (test code = 7795841347) See_Comment [Automated messa ge] The system which generated this result transmitted reference range: 10*3/?L. The reference range was not used to interpret this result as normal/abnormal. GRAN MAT (NEUT) % (test code = 770-8) 66.5 % IMM GRAN % (test code = 5071513075) 0.30 % LYMPH % (test code = 736-9) 26.8 % MONO % (test code = 5905-5) 3.5 % EOS % (test code = 713-8) 2.3 % BASO % (test code = 706-2) 0.6 % GRAN MAT x10^3(ANC) (test code = 2457127944) 5.71 10*3/uL 1.88-7.09 IMM GRAN x10^3 (test code = 9939046216) 0.03 10*3/uL 0.00-0.06 LYMPH x10^3 (test code = 731-0) 2.30 10*3/uL 1.32-3.29 MONO x10^3 (test code = 742-7) 0.30 10*3/uL 0.33-0.92 L EOS x10^3 (test code = 711-2) 0.20 10*3/uL 0.03-0.39 BASO x10^3 (test code = 704-7) 0.05 10*3/uL 0.01-0.07 Lab Interpretation (test code = 60055-9) Abnormal [facility] METABOLIC PANEL (68725)2023-05-19 17:55:27* Test Item Value Reference Range Interpretation Comme nts NA (test code = 8962080621) 138 mmol/L 135-145 K (test code = 4414273472) 3.8 mmol/L 3.5-5.0 CL (test code = 6470721199) 107 mmol/L 98-108 CO2 TOTAL (test code = 5978838799) 21 mmol/L 23-31 L AGAP (test code = 0441950361) 10 2-16 BUN (test code = 3781084429) 8 mg/dL 7-23 GLUCOSE (test code = 7135845275) 89 mg/dL 70-110 CREATININE (test code = 0093729206) 0.69 mg/dL 0.50-1.04 TOTAL BILI (test code = 5316299487) 0.7 mg/dL 0.1-1.1 CALCIUM (test code = 4367732226) 8.3 mg/dL 8.6-10.6 L T PROTEIN (test code = 0717137511) 7.3 g/dL 6.3-8.2 ALBUMIN (test code = 0035585770) 4.1 g/dL 3.5-5.0 ALK PHOS (test code = 2172007117) 107 U/L 34-122 ALTv (test code = 1742-6) 75 U/L 5-35 H AST(SGOT) (test code = 1422184852) 42 U/L 13-40 H eGFR (test code = 31463-8) 121.4 mL/min/1.73m2 CKD-EPI eGFR (2020). Assuming creatinine has been stable day-to-day for at least three months, the eGFR indicates Category G1 (>= 90 mL/min/1.73 m2) Lab Interpretation (test code = 68076-4) Abnormal [facility] 16:39:24* Test Item Value Reference Range Interpretation Comme nts LIPASE (test code = 9835534282) 40 U/L 0-220 Lab Interpretation (test cod e = 55496-4) Normal [facility] PELVIS W [id number] 16:27:28EXAM: CT ABDOMEN PELVIS W CONTRAST HISTORY: [...] hypodensity isseen within the right gluteal soft tissue.[facility] CBC WITH [id number] 16:14:18* Test Item Value Reference Range Interpretation Comme nts WBC (test code = 6690-2) 6.32 See_Comment [Automated [employer]] The system which generated this result transmitted [...] 34.1 g/dL 31.6-35.1 RDW-SD (test code = 38328-6) 42.0 fL 39.0-49.9 RDW-CV (test code = 788-0) 13.0 % 12.0-15.5 PLT (test code = 777-3) 369 See_Comment H [Automated [employer]] The system which generated this result transmitted reference range: 166 - 358 10*3/?L. The reference range was not used to interpret this result as normal/abnormal. MPV (test code = 15284-3) 9.9 fL 9.5-12.9 NRBC/100 WBC (test code = 3877672009) 0.0 See_Comment [Automated [employer]] The system which generated this result transmitted reference range: 0.0 - 10.0 /100 WBCs. The reference range was not used to interpret this result as normal/abnormal. NRBC x10^3 (test code = 9494549008) See_Comment [Automated [employer]] The system which generated this result transmitted reference range: 10*3/?L. The reference range was not used to interpret this result as normal/abnormal. GRAN MAT (NEUT) % (test code = 770-8) 64.8 % IMM GRAN % (test code = 3721012168) 0.50 % LYMPH % (test code = 736-9) 25.3 % MONO % (test code = 5905-5) 4.1 % EOS % (test code = 713-8) 4.7 % BASO % (test code = 706-2) 0.6 % GRAN MAT x10^3(ANC) (test code = 3110787662) 4.09 10*3/uL 1.88-7.09 IMM GRAN x10^3 (test code = 5616687298) 0.03 10*3/uL 0.00-0.06 LYMPH x10^3 (test code = 731-0) 1.60 10*3/uL 1.32-3.29 MONO x10^3 (test code = 742-7) 0.26 10*3/uL 0.33-0.92 L EOS x10^3 (test code = 711-2) 0.30 10*3/uL 0.03-0.39 BASO x10^3 (test code = 704-7) 0.04 10*3/uL 0.01-0.07 Lab Interpretation (test code = 74928-7) Abnormal [facility] [id number] 15:31:00* Test Item Value Reference Range Interpretation Comme nts POCT PREG (test code = 1605) Negative On board controls acceptable with C Line (test code = 3574) Yes POCT PREG LOT # (test code = 3575) [id number] POCT PREG TEST DATE ( test code = 3576) 2024-07-21 Lab Interpretation (test cod e = 94832-3) Normal [facility] WITH [id number] 04:28:47* Test Item Value Reference Range Interpretation Comme nts WBC (test code = 6690-2) 5.45 See_Comment [Automated [employer]] The system which generated this result [...] 34.0 g/dL 31.6-35.1 RDW-SD (test code = 98271-9) 40.3 fL 39.0-49.9 RDW-CV (test code = 788-0) 13.1 % 12.0-15.5 PLT (test code = 777-3) 307 See_Comment [Automated messa ge] The system which generated this result transmitted reference range: 166 - 358 10*3/?L. The reference range was not used to interpret this result as normal/abnormal. MPV (test code = 31201-4) 11.0 fL 9.5-12.9 NRBC/100 WBC (test code = 1238718563) 0.0 See_Comment [Automated [employer]] The system which generated this result transmitted reference range: 0.0 - 10.0 /100 WBCs. The reference range was not used to interpret this result as normal/abnormal. NRBC x10^3 (test code = 6096368705) See_Comment [Automated messa ge] The system which generated this result transmitted reference range: 10*3/?L. The reference range was not used to interpret this result as normal/abnormal. GRAN MAT (NEUT) % (test code = 770-8) 52.0 % IMM GRAN % (test code = 7792812381) 0.20 % LYMPH % (test code = 736-9) 38.0 % MONO % (test code = 5905-5) 4.6 % EOS % (test code = 713-8) 4.6 % BASO % (test code = 706-2) 0.6 % GRAN MAT x10^3(ANC) (test code = 4044391040) 2.84 10*3/uL 1.88-7.09 IMM GRAN x10^3 (test code = 4152664304) 0.00-0.06 LYMPH x10^3 (test code = 731-0) 2.07 10*3/uL 1.32-3.29 MONO x10^3 (test code = 742-7) 0.25 10*3/uL 0.33-0.92 L EOS x10^3 (test code = 711-2) 0.25 10*3/uL 0.03-0.39 BASO x10^3 (test code = 704-7) 0.03 10*3/uL 0.01-0.07 Lab Interpretation (test code = 95391-6) Abnormal [facility]. METABOLIC PANEL (62404)2023-01-12 04:12:43* Test Item Value Reference Range Interpretation Comme nts NA (test code = 7466209685) 137 mmol/L 135-145 K (test code = 3897056720) 3.4 mmol/L 3.5-5.0 L CL (test code = 8262307597) 104 mmol/L 98-108 CO2 TOTAL (test code = 0126743692) 24 mmol/L 23-31 AGAP (test code = 6662504836) 9 2-16 BUN (test code = 7835371155) 2 mg/dL 7-23 L GLUCOSE (test code = 1104006753) 92 mg/dL 70-110 CREATININE (test code = 9403206872) 0.80 mg/dL 0.50-1.04 TOTAL BILI (test code = 5887067979) 0.4 mg/dL 0.1-1.1 CALCIUM (test code = 2279426187) 8.4 mg/dL 8.6-10.6 L T PROTEIN (test code = 5294631313) 6.3 g/dL 6.3-8.2 ALBUMIN (test code = 0494337183) 3.7 g/dL 3.5-5.0 ALK PHOS (test code = 9085532040) 87 U/L 34-122 ALTv (test code = 1742-6) 27 U/L 5-35 AST(SGOT) (test code = 6895827278) 33 U/L 13-40 eGFR (test code = 8962601000) 86.0 mL/min/1.73m2 WESLEY (test code = WESLEY) [...] imaging tests). Lab Interpretation (test code = 75127-1) Abnormal [facility]. METABOLIC PANEL ([id number])2023-01-12 04:12:43* Test Item Value Reference Range Interpretation Comme nts NA (test code = 8776507276) 137 mmol/L 135-145 K (test code = 7606559765) 3.4 mmol/L 3.5-5.0 L CL (test code = 5182480654) 104 mmol/L 98-108 CO2 TOTAL (test code = 2348814265) 24 mmol/L 23-31 AGAP (test code = 4402353572) 9 2-16 BUN (test code = 8105710625) 2 mg/dL 7-23 L GLUCOSE (test code = 7611100834) 92 mg/dL 70-110 CREATININE (test code = 6947817826) 0.80 mg/dL 0.50-1.04 TOTAL BILI (test code = 8465340129) 0.4 mg/dL 0.1-1.1 CALCIUM (test code = 5016491093) 8.4 mg/dL 8.6-10.6 L T PROTEIN (test code = 8589039542) 6.3 g/dL 6.3-8.2 ALBUMIN (test code = 1179802069) 3.7 g/dL 3.5-5.0 ALK PHOS (test code = 6215907338) 87 U/L 34-122 ALTv (test code = 1742-6) 27 U/L 5-35 AST(SGOT) (test code = 8437850793) 33 U/L 13-40 eGFR (test code = 1312029779) 86.0 mL/min/1.73m2 WESLEY (test code = WESLEY) [...] imaging tests). Lab Interpretation (test code = 20438-8) [facility]:07:04 BETA HCG<2.39Non- female and male patients: <5 mIU/mL01/11/2023 11:[address] [facility] Gestational Age ?Range (mIU/mL) 1-10 ?Weeks ?28-20698266-64 Weeks ?07443-52898333-66 Weeks ?3046-97554253-57 Weeks ?1531-268112 Biotin has been reported to cause a negative bias, interpret results relative to patient's use of biotin. Gestational Age ?Range (mIU/mL) 1-10 ?Weeks ?87-89993425-98 Weeks ?28889-96038189-82 Weeks ?8286-80917528-00 Weeks?1531-612525 Biotin has been reported to cause a negative bias, interpret results relative to patient's use of biotin. Gestational Age ?Range (mIU/mL) 1-10 ?Weeks ?71-29196376-19 Weeks ?48784-56601820-26 Weeks ?9470-44770611-95 Weeks ?1531-572226 Biotin has been reported to cause a negative bias, interpretresults relative to patient's use of biotin.[facility] (QUANTITATIVE)2023-01-12 04:07:04BETA HCG<2.39Non- female and male patients: <5 mIU/mL01/11/2023 11:07 PM [facility] Gestational Age ?Range (mIU/mL) 1-10 ?Weeks ?35-82955701-44 Weeks ?57328-58103900-16 Weeks ?6501-89148600-03 Weeks ?1531-677049 Biotin has been reported to cause a negative bias, interpret results relative topatient's use of biotin. Gestational Age ?Range (mIU/mL) 1-10 ?Weeks ?04-44824354-15 Weeks ?16540-46549972-12 Weeks ?2608-03762711-05 Weeks?1531-883429 Biotin has been reported to cause a negative bias, interpret results relative to patient's use of biotin. Gestational Age ?Range (mIU/mL) 1-10 ?Weeks ?46-95259619-11 Weeks ?25042-26064027-83 Weeks ?5280-18352634-69 Weeks ?1531-884372 Biotin has been reported to cause a negative bias, interpretresults relative to patient's use of biotin.[facility] 03:22:58* Test Item Value Reference Range Interpretation Comme nts LIPASE (test code = 8003463973) 41 U/L 0-220 Lab Interpretation (test cod e = 91776-3) Normal [facility]2023-09-02 03:22:58* Test Item Value Reference Range Interpretation Comme nts LIPASE (test code = 3606363295) 41 U/L 0-220 Lab Interpretation (test cod e = 73598-6) Normal [facility] [id number] 03:02:00* Test Item Value Reference Range Interpretation Comme nts POCT PREG (test code = 1605) Negative On board controls acceptable with C Line (test code = 3574) Yes POCT PREG LOT # (test code = 3575) [id number] POCT PREG TEST DATE ( test code = 3576) 05/15/2024 Lab Interpretation (test cod e = 43801-1) Normal [facility] [id number] 03:02:00* Test Item Value Reference Range Interpretation Comme nts POCT PREG (test code = 1605) Negative On board controls acceptable with C Line (test code = 3574) Yes POCT PREG LOT # (test code = 3575) [id number] POCT PREG TEST DATE ( test code = 3576) 05/15/2024 Lab Interpretation (test cod e = 12070-3) Normal [facility], [id number] 00:23:34* Test Item Value Reference Range Interpretation Comme nts PREG SERUM (test code = 6922153515) Negative WESLEY (test code = WESLEY) Less than 10 IU/L. ?If low titer or ectopic is suspected, resubmit specimen in 48-72 hours. [facility]. METABOLIC PANEL ([id number])2022-07-31 23:58:12* Test Item Value Reference Range Interpretation Comme nts NA (test code = 3242665291) 140 mmol/L 135-145 K (test code = 2784995262) 3.6 mmol/L 3.5-5.0 CL (test code = 0633231990) 106 mmol/L 98-108 CO2 TOTAL (test code = 8779066546) 21 mmol/L 23-31 L AGAP (test code = 4579002489) 13 2-16 BUN (test code = 6044881818) 8 mg/dL 7-23 GLUCOSE (test code = 9424955860) 90 mg/dL 70-110 CREATININE (test code = 2684770635) 0.90 mg/dL 0.50-1.04 TOTAL BILI (test code = 6901033363) 0.5 mg/dL 0.1-1.1 CALCIUM (test code = 5123116112) 9.0 mg/dL 8.6-10.6 T PROTEIN (test code = 9265025325) 7.8 g/dL 6.3-8.2 ALBUMIN (test code = 0633182621) 4.6 g/dL 3.5-5.0 ALK PHOS (test code = 2978065857) 63 U/L 34-122 ALTv (test code = 1742-6) 23 U/L 5-35 AST(SGOT) (test code = 7765159748) 27 U/L 13-40 eGFR (test code = 4968850950) 75.1 mL/min/1.73m2 WESLEY (test code = WESLEY) [...] imaging tests). Lab Interpretation (test code = 30237-6) [facility]normal [facility] 23:57:32* Test Item Value Reference Range Interpretation Comme nts LIPASE (test code = 4685792573) 55 U/L 0-220 Lab Interpretation (test cod e = 86967-8) Normal [facility] WITH [id number] 23:47:31* Test Item Value Reference Range Interpretation Comme nts WBC (test code = 6690-2) 5.64 See_Comment [Automated [employer]] The system which generated this result transmitted reference range: 4.30 - 11.10 10*3/?L. The reference range was not used to interpret this result as normal/abnormal. RBC (test code = 789-8) 4.51 See_Comment [Automated [employer]] The system which generated this result transmitted [...] 32.6 g/dL 31.6-35.1 RDW-SD (test code = 47834-2) 42.5 fL 39.0-49.9 RDW-CV (test code = 788-0) 13.0 % 12.0-15.5 PLT (test code = 777-3) 339 See_Comment [Automated messa ge] The system which generated this result transmitted reference range: 166 - 358 10*3/?L. The reference range was not used to interpret this result as normal/abnormal. MPV (test code = 50399-8) 9.4 fL 9.5-12.9 L NRBC/100 WBC (test code = 1994523890) 0.0 See_Comment [Automated [employer]] The system which generated this result transmitted reference range: 0.0 - 10.0 /100 WBCs. The reference range was not used to interpret this result as normal/abnormal. NRBC x10^3 (test code = 0334797113) See_Comment [Automated [employer]] The system which generated this result transmitted reference range: 10*3/?L. The reference range was not used to interpret this result as normal/abnormal. GRAN MAT (NEUT) % (test code = 770-8) 51.2 % IMM GRAN % (test code = 9879240714) 0.20 % LYMPH % (test code = 736-9) 36.5 % MONO % (test code = 5905-5) 5.7 % EOS % (test code = 713-8) 5.9 % BASO % (test code = 706-2) 0.5 % GRAN MAT x10^3(ANC) (test code = 8797651293) 2.89 10*3/uL 1.88-7.09 IMM GRAN x10^3 (test code = 2749244548) 0.00-0.06 LYMPH x10^3 (test code = 731-0) 2.06 10*3/uL 1.32-3.29 MONO x10^3 (test code = 742-7) 0.32 10*3/uL 0.33-0.92 L EOS x10^3 (test code = 711-2) 0.33 10*3/uL 0.03-0.39 BASO x10^3 (test code = 704-7) 0.03 10*3/uL 0.01-0.07 Lab Interpretation (test code = 37086-2) Abnormal [facility] [id number] 16:14:38* Test Item Value Reference Range Interpretation Comme nts POCT Molecular Strep (test c ode = 13388-1) Negative Negative Lab Interpretation (test cod e = 06458-8) Normal [facility] METABOLIC PANEL (20999)2022-05-05 19:35:37* Test Item Value Reference Range Interpretation Comme nts NA (test code = 2267805739) 139 mmol/L 135-145 K (test code = 6998005399) 4.4 mmol/L 3.5-5.0 CL (test code = 2693316183) 104 mmol/L 98-108 CO2 TOTAL (test code = 5544525519) 22 mmol/L 23-31 L AGAP (test code = 6142565424) 2-16 BUN (test code = 6127303229) 11 mg/dL 7-23 GLUCOSE (test code = 4741041635) 95 mg/dL 70-110 CREATININE (test code = 2143714134) 0.71 mg/dL 0.50-1.04 TOTAL BILI (test code = 8834815056) 0.4 mg/dL 0.1-1.1 CALCIUM (test code = 0388660158) 9.1 mg/dL 8.6-10.6 T PROTEIN (test code = 2246987342) 7.9 g/dL 6.3-8.2 ALBUMIN (test code = 4496098404) 4.7 g/dL 3.5-5.0 ALK PHOS (test code = 6284225604) 114 U/L 34-122 ALTv (test code = 1742-6) 21 U/L 5-35 AST(SGOT) (test code = 1358565156) 21 U/L 13-40 eGFR (test code = 2234300570) mL/min/1.73m2 WESLEY (test code = WESLEY) Association [...] imaging tests). Lab Interpretation (test code = 86944-8) Abnormal [facility] WITH [id number] 19:25:37* Test Item Value Reference Range Interpretation Comme nts WBC (test code = 6690-2) See_Comment [[employer]] The system which generated this result transmitted [...] 32.9 g/dL 31.6-35.1 RDW-SD (test code = 52878-1) 41.7 fL 39.0-49.9 RDW-CV (test code = 788-0) 12.7 % 12.0-15.5 PLT (test code = 777-3) See_Comment H [Automated messa ge] The system which generated this result transmitted reference range: 166 - 358 10*3/?L. The reference range was not used to interpret this result as normal/abnormal. MPV (test code = 59573-9) 8.8 fL 9.5-12.9 L NRBC/100 WBC (test code = 8712301098) See_Comment [Automated [employer]] The system which generated this result transmitted reference range: 0.0 - 10.0 /100 WBCs. The reference range was not used to interpret this result as normal/abnormal. NRBC x10^3 (test code = 5570627066) See_Comment [Automated messa ge] The system which generated this result transmitted reference range: 10*3/?L. The reference range was not used to interpret this result as normal/abnormal. GRAN MAT (NEUT) % (test code = 770-8) 56.1 % IMM GRAN % (test code = 6904493468) 0.40 % LYMPH % (test code = 736-9) 29.9 % MONO % (test code = 5905-5) 5.4 % EOS % (test code = 713-8) 7.8 % BASO % (test code = 706-2) 0.4 % GRAN MAT x10^3(ANC) (test code = 7149650708) 3.75 10*3/uL 1.88-7.09 IMM GRAN x10^3 (test code = 8053710012) 0.03 10*3/uL 0.00-0.06 LYMPH x10^3 (test code = 731-0) 2.00 10*3/uL 1.32-3.29 MONO x10^3 (test code = 742-7) 0.36 10*3/uL 0.33-0.92 EOS x10^3 (test code = 711-2) 0.52 10*3/uL 0.03-0.39 H BASO x10^3 (test code = 704-7) 0.03 10*3/uL 0.01-0.07 Lab Interpretation (test code = 25596-9) Abnormal [facility] [id number] 19:00:00* Test Item Value Reference Range Interpretation Comme nts POCT PREG (test code = 1605) negative On board controls acceptable with C Line (test code = 3574) present POCT PREG LOT # (test code = 3575) [id number] POCT PREG TEST DATE ( test code = 3576) 08-11-2023 Lab Interpretation (test cod e = 43791-5) Normal [facility] WITH [id number] 15:21:11* Test Item Value Reference Range Interpretation Comme nts WBC (test code = 6690-2) See_Comment [Automated [employer]] The system which generated this result transmitted reference range: 4.30 - 11.10 10*3/?L. The reference range was not used to interpret this result as normal/abnormal. RBC (test code = 789-8) See_Comment [Automated [employer]] The system which generated this result [...] 33.0 g/dL 31.6-35.1 RDW-SD (test code = 47278-5) 42.6 fL 39.0-49.9 RDW-CV (test code = 788-0) 12.9 % 12.0-15.5 PLT (test code = 777-3) See_Comment H [Automated [employer]] The system which generated this result transmitted reference range: 166 - 358 10*3/?L. The reference range was not used to interpret this result as normal/abnormal. MPV (test code = 85327-4) 9.1 fL 9.5-12.9 L NRBC/100 WBC (test code = 8182236941) See_Comment [Automated [employer]] The system which generated this result transmitted reference range: 0.0 - 10.0 /100 WBCs. The reference range was not used to interpret this result as normal/abnormal. NRBC x10^3 (test code = 6526079708) See_Comment [Automated [employer]] The system which generated this result transmitted reference range: 10*3/?L. The reference range was not used to interpret this result as normal/abnormal. GRAN MAT (NEUT) % (test code = 770-8) 56.8 % IMM GRAN % (test code = 9882952600) 0.30 % LYMPH % (test code = 736-9) 29.5 % MONO % (test code = 5905-5) 4.3 % EOS % (test code = 713-8) 8.3 % BASO % (test code = 706-2) 0.8 % GRAN MAT x10^3(ANC) (test code = 1084201269) 3.57 10*3/uL 1.88-7.09 IMM GRAN x10^3 (test code = 9029310700) 0.00-0.06 LYMPH x10^3 (test code = 731-0) 1.85 10*3/uL 1.32-3.29 MONO x10^3 (test code = 742-7) 0.27 10*3/uL 0.33-0.92 L EOS x10^3 (test code = 711-2) 0.52 10*3/uL 0.03-0.39 H BASO x10^3 (test code = 704-7) 0.05 10*3/uL 0.01-0.07 Lab Interpretation (test code = 48125-3) Abnormal [facility]OLIC PANEL ([id number])2022-04-26 15:12:13* Test Item Value Reference Range Interpretation Comme nts NA (test code = 1078425456) 141 mmol/L 135-145 K (test code = 4165250935) 3.4 mmol/L 3.5-5.0 L CL (test code = 1264098457) 104 mmol/L 98-108 CO2 TOTAL (test code = 5789085131) 23 mmol/L 23-31 AGAP (test code = 7593112521) 2-16 BUN (test code = 6398101166) 9 mg/dL 7-23 GLUCOSE (test code = 1237115749) 101 mg/dL 70-110 CREATININE (test code = 2971685346) 0.82 mg/dL 0.50-1.04 TOTAL BILI (test code = 9658514156) 0.7 mg/dL 0.1-1.1 CALCIUM (test code = 6848762490) 9.3 mg/dL 8.6-10.6 T PROTEIN (test code = 1387105711) 8.1 g/dL 6.3-8.2 ALBUMIN (test code = 7484372587) 4.7 g/dL 3.5-5.0 ALK PHOS (test code = 7880349605) 108 U/L 34-122 ALTv (test code = 1742-6) 24 U/L 5-35 AST(SGOT) (test code = 4672569161) 49 U/L 13-40 H eGFR (test code = 9014571886) mL/min/1.73m2 WESLEY (test code = WESLEY) Association [...] imaging tests). Lab Interpretation (test code = 06072-7) Abnormal [facility] [id number] 14:45:00* Test Item Value Reference Range Interpretation Comme nts POCT PREG (test code = 1605) negative On board controls acceptable with C Line (test code = 3574) present POCT PREG LOT # (test code = 3575) [id number] POCT PREG TEST DATE ( test code = 3576) 08/11/2023 Lab Interpretation (test cod e = 34308-7) Normal [facility] [id number] 01:22:00* Test Item Value Reference Range Interpretation Comme nts POCT PREG (test code = 1605) Negative On board controls acceptable with C Line (test code = 3574) Present POCT PREG LOT # (test code = 3575) [id number] POCT PREG TEST DATE ( test code = 3576) 08-11-2023 Lab Interpretation (test cod e = 81810-1) Normal [facility] METABOLIC PANEL (NA, K, CL, CO2, GLUCOSE, BUN, CREATININE, CA)2022-04-07 23:01:10* Test Item Value Reference Range Interpretation Comme nts NA (test code = 0187742478) 138 mmol/L 135-145 K (test code = 5805531667) 4.3 mmol/L 3.5-5.0 CL (test code = 2684654088) 107 mmol/L 98-108 CO2 TOTAL (test code = 5002888807) 20 mmol/L 23-31 L AGAP (test code = 4289258914) 2-16 BUN (test code = 4825491808) 9 mg/dL 7-23 GLUCOSE (test code = 4274134325) 204 mg/dL 70-110 H CREATININE (test code = 0754712196) 0.74 mg/dL 0.50-1.04 CALCIUM (test code = 1972734007) 9.1 mg/dL 8.6-10.6 eGFR (test code = 0008460334) mL/min/1.73m2 WESLEY (test code = WESLEY) Association [...] imaging tests). Lab Interpretation (test code = 40793-5) Abnormal [facility] WITH [id number] 22:57:34* Test Item Value Reference Range Interpretation [...] 33.5 g/dL 31.6-35.1 RDW-SD (test code = 19720-6) 42.9 fL 39.0-49.9 RDW-CV (test code = 788-0) 13.4 % 12.0-15.5 PLT (test code = 777-3) See_Comment H [Automated messa ge] The system which generated this result transmitted reference range: 166 - 358 10*3/?L. The reference range was not used to interpret this result as normal/abnormal. MPV (test code = 51035-3) 8.9 fL 9.5-12.9 L NRBC/100 WBC (test code = 0999546990) See_Comment [Automated me ssage] The system which generated this result transmitted reference range: 0.0 - 10.0 /100 WBCs. The reference range was not used to interpret this result as normal/abnormal. NRBC x10^3 (test code = 3987485897) See_Comment [Automated messa ge] The system which generated this result transmitted reference range: 10*3/?L. The reference range was not used to interpret this result as normal/abnormal. GRAN MAT (NEUT) % (test code = 770-8) 88.7 % IMM GRAN % (test code = 8311487552) 0.70 % LYMPH % (test code = 736-9) 9.4 % MONO % (test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 progressing as expected Goal: Patent airway Outcome: Not progressing as expected Kitty Alvarado RN [facility] 2024-03-11 19:43:41 Problem: Falls, Risk of Goal: Absence of falls Outcome: Progressing as expected Problem: Discharge Planning Goal: Adequate for discharge Outcome: Progressing as expected Goal: Effective communication Outcome: Progressing as expected Problem: Pain Goal: Control of pain at or below patient's documented comfort goal Outcome: Progressing as expected Goal: Reduction in pain sensation Outcome: Progressing as expected Problem: Bleeding, Risk of Goal: Absence of impaired coagulation signs and symptoms Outcome: Progressing as expected Goal: Absence of active bleeding Outcome: Progressing as expected Problem: Cardiac Output - Decreased Goal: Cardiac output within specified parameters Outcome: Progressing as expected Goal: Absence of signs and symptoms of decreased cardiac output Outcome: Progressing as expected Problem: Respiratory Function - Impaired Goal: Able to cough effectively Outcome: Progressing as expected Goal: Adequate oxygenation Outcome: Progressing as expected Goal: Adequate work of breathing Outcome: Progressing as expected Goal: Patent airway Outcome: Progressing as expected Problem: Nausea/Vomiting Goal: Absence of nausea/vomiting Outcome: Not progressing as expected T Charles Canales RN [facility] 2024-03-11 19:25:25 A patient w/ normal wob. T Omi Christina RT [facility] 2024-03-11 01:49:00 Problem: Falls, Risk of Goal: Absence of falls Outcome: Progressing as expected Problem: Discharge Planning Goal: Adequate for discharge Outcome: Progressing as expected Goal: Effective communication Outcome: Progressing as expected Problem: Pain Goal: Control of pain at or below patient's documented comfort goal Outcome: Progressing as expected Goal: Reduction in pain sensation Outcome: Progressing as expected Problem: Nausea/Vomiting Goal: Absence of nausea/vomiting Outcome: Progressing as expected Problem: Bleeding, Risk of Goal: Absence of impaired coagulation signs and symptoms Outcome: Progressing as expected Goal: Absence of active bleeding Outcome: Progressing as expected Problem: Cardiac Output - Decreased Goal: Cardiac output within specified parameters Outcome: Progressing as expected Goal: Absence of signs and symptoms of decreased cardiac output Outcome: Progressing as expected [facility] 2024-03-10 22:29:56 Patient admitted to [place] [id number]. Patient agrees to admission, discussed plan of care with patient and family. Patient is awake, alert, oriented, resp reg unlabored, color appropriate for race, PIV intact. No adverse reaction to medications administered while in ED. Belongings with patient to unit. [facility] 2024-03-10 22:29:18 Transportation at bedside. [facility] 2024-03-10 22:02:00 Report given. Patient to be admitted to [place] [id number]. Patient verbalized understanding of plan of care. [facility] 2024-03-10 21:20:38 Attempted to call report. RN unavailable, will call back. [facility] 2024-03-10 21:00:00 Report received from ROSEY Sanchez. POC discussed. T [facility] 2024-03-10 20:55:38 Attempted to call report, RN States she will call back. Taj Suero RN [facility] 2024-03-10 19:17:[address] Jain who states he will be down soon to evaluate patient. [facility] 2024-03-10 18:19:39 Pt refuses zofran. States understanding of pending admission eval. [facility] 2024-03-10 18:00:01 Pt still violently vomiting. Provider notified to request admission of patient. [facility] 2024-03-10 17:21:09 Pt given phenergan and morhpine at this time. [facility] 2024-03-10 16:28:50 Resident states we will attempt to manage pain and nausea before admitting. Pt staets understanding of POC awaiting phenergan to give patient morphine. [facility] 2024-03-10 15:56:04 Phenergan requested form pharmacy. Resident states that pt will be admited to medicine. Pt updated on plan. Hunched over vomitting in bed at this time. VSS T [facility] 2024-03-10 15:47:36 Notified resident and MD of CT findings. Again, requested pain mneds and plan for dispo T [facility] 2024-03-10 15:00:00 Pt still in pain, requested meds from provider. T [facility] 2024-03-10 14:44:[address] Has relief of headache. Still has abd pain. Provider notified. T [facility] 2024-03-10 14:20:[address] T [facility] 2024-03-10 14:12:40 Pt given benadryl as ordered. Appears to be in NAD. States understanding of pending CT at this time. T [facility] 2024-03-10 13:31:15 Pt still vomitting in pain, provider yet again notified. T [facility] 2024-03-10 12:10:00 Pt reports nausea and vomiting despite zofran. Will request form MD T [facility] 2024-03-10 11:45:00 IV noted to be infiltrated. Initiated new USGPIV. Provider attempting to obtain outside hospital records of CT scan. Will determine need for additional imaging during this visit. Pt medicated per JUL. [facility] 2024-03-10 10:00:00 Natanael Dyson is a 29 year old female Presents to the ed with cc of abdominal pain pain, n/v/d. Was seen 5 days ago for symptoms at outside facility where she was admitted, had EGD which confirmed she had H. Pylori infection. Was sent home with treatment, but indicates she has not been able to keep down medications. Remains having 8/10 LUQ abd pain. Yesterday was dropping daughter off at school when she became dizzy, fell and had a seizure. Does have a history of seizures. Pt appears to be moaning in pain, respirations even and unlabored, vss. T [facility] 2024-03-10 09:41:39 Natanael Dyson is a 29 year old female who presents to the ED via triage ambulatory with a CC of vomiting and having bright red bloody stools. Pt reports she was recently dc from hospital with dx of gastritis and h. Pylori but hasn't been able to keep anything down and feels as though her symptoms are worsening. Pt alert and oriented x4, RR even and unlabored, skin warm and dry, appropriate for color Santa Rapp RN [facility] 2024-03-10 09:36:00 [facility] Emergency Department Note Patient Name: Natanael Dyson Date of : 1995 29 year old female Treatment Room: 120/120 Primary Care Physician: PATIENT DOES NOT HAVE A PCP Patient Escorted by: Self [9] Mode of [...] Chief Complaint: Chief Complaint Patient presents with Vomiting History of Present Illness: The patient is a 29-year-old female with a past medical history of migraines bipolar, and gastritis due to H. pylori who presents evaluation of epigastric pain. Patient notes significant nausea and vomiting. Patient has been having diarrhea. Diarrhea for the last 2 days has had blood in it. Patient was discharged from the hospital 03/05 after undergoing workup for H. pylori. She was started on quadruple therapy. Patient staying on medications prescribed. Patient has been taking Pepcid, Protonix, and Imodium for her symptoms. Patient also has a tension-like headache for which she is taking Tylenol. She does have a history of migraines. She denies any blood in the vomit. Denies any fever or chills. Patient states that yesterday she had a seizure. She was seen at a hospital in [place]. Patient a CT scan of her abdomen at this time in [place]. She has had a cholecystectomy. She denies any shortness of breath, chest pain or genitourinary symptoms. Denies any vaginal bleeding. The first day of her last menstrual period was approximately 3 weeks as she is unable to provide an accurate date. Past Medical History/Immunizations: Past Medical History: Diagnosis [...] per pt report Allergies: Allergies Allergen Reactions Nsaids (Non-Steroidal Anti-Inflammatory [...] Use Never smoked or used smokeless tobacco. Passive Exposure: Never Vaping Use Never used Alcohol Use Not Currently. Drug Use Never. Sexual Activity Sexually active; Partners: Male; Control/Protection: Surgical. Past Surgical History: Past Surgical History: Procedure Laterality Date SECTION 2014 SECTION N/A 07/21/2019 Surgeon: Prasanna Vargas MD; Location: [facility] Labor and Delivery OR Location ESOPHAGOGASTRODUODENOSCOPY Upper 02/27/2024 Surgeon: Jas Buenrostro MD; Location: ENDOSCOPY ([facility]) OR LOCATION FLEXIBLE SIGMOIDOSCOPY (SHX) N/A 02/27/2024 Surgeon: Jas Buenrostro MD; Location: ENDOSCOPY ([facility]) OR LOCATION TUBAL LIGATION N/A 07/21/2019 Surgeon: Prasanna Vargas MD; Location: [facility] Labor and Delivery OR Location TUBAL LIGATION Review of Systems: Review of Systems Constitutional: Negative for chills, fatigue and fever. Respiratory: Negative for chest tightness, shortness of breath and wheezing. Cardiovascular: Negative for chest pain and palpitations. Gastrointestinal: Positive for abdominal pain, diarrhea, nausea and vomiting. Negative for abdominal distention and constipation. Genitourinary: Negative for dysuria, urgency, frequency and hematuria. Neurological: Positive for headaches. Negative for dizziness and weakness. Psychiatric/Behavioral: Negative for behavioral problems, confusion and decreased concentration. Physical Exam: ED Triage Vitals [03/10/24 0943] Weight 44.5 kg (98 lb) Actual or estimated Height 1.549 m (5' 1") BP (!) 163/98 Pulse 115 Resp 18 Temp 36.6 ?C (97.8 ?F) Temp src SpO2 100 % Measured on Physical Exam Constitutional: Appearance: Normal appearance. HENT: Head: Normocephalic. Nose: Nose normal. Mouth/Throat: Mouth: Mucous membranes are moist. Pharynx: Oropharynx is clear. Eyes: Extraocular Movements: Extraocular movements intact. Conjunctiva/sclera: Conjunctivae normal. Pupils: Pupils are equal, round, and reactive to light. Cardiovascular: Rate and Rhythm: Normal rate and regular rhythm. Pulses: Normal pulses. Heart sounds: Normal heart sounds. No murmur heard. No friction rub. No gallop. Pulmonary: Effort: No respiratory distress. Breath sounds: No wheezing or rales. Chest: Chest wall: No tenderness. Abdominal: General: Abdomen is flat. Bowel sounds are normal. There is no distension. Palpations: Abdomen is soft. Tenderness: There is abdominal tenderness. There is no guarding or rebound. Negative signs include Ayoub's sign, Rovsing's sign, McBurney's sign, psoas sign and obturator sign. Skin: General: Skin is warm. Capillary Refill: Capillary refill takes less than 2 seconds. Neurological: General: No focal deficit present. Mental Status: She is alert and oriented to person, place, and time. Radiology: No orders to display Lab Results: Lab Results - No data to display EKG: If EKG completed, see Procedure Note. Orders and Treatments: Orders Placed This Encounter Procedures CBC WITH DIFF COMP. METABOLIC PANEL (98654) URINALYSIS LIPASE Orders Placed This Encounter Medications ondansetron (ZOFRAN (PF)) injection 4 mg First Provider Eval: ED Events Date/Time Event User Comments 03/10/24938 Medical Screening Begins JEFFERY BENAVIDES -- 03/10/24938 First Provider Evaluation JEFFERY BENAVIDES -- ED COURSE ED Course as of 03/10/241807Mar 10, [id number] Discussed case with Dr Edmond for admission for intractable vomiting, dehydration and ileus [CD] 1512 Will try PO challenge [CD] 1509 IMPRESSION Couple of loops of mildly dilated air and fluid containing jejunum in the left upper quadrant nonspecific but could be related to enteritis or mild localized ileus. No bowel obstruction or bowel wall thickening. Nonobstructing right intrarenal calculi. [CD] [address] [CD] 1245 Was given IV fluids for she has been having intractable vomiting and is tachycardic and showing clinical signs of dehydration. [CD] [address] results from OSH [CD] 1127 URINALYSIS(!) No obvious UTI with a lot of squamous cells indicating likely contamination [CD] 1127 COMP. METABOLIC PANEL (56443)(!) No significant abnormalities [CD] 1127 PREG SERUM: Negative [CD] 1127 LIPASE: 72 No pancreatitis [CD] 1127 WBC x10 3 : 6.91 Severe systemic infection less likely [CD] 1019 Patient took Tylenol, Pepcid, Protonix, Imodium prior to arrival. [] 1015 29-year-old female comes in with abdominal pain vomiting and concerns for dehydration. Patient was recently admitted and had a upper endoscopy that showed esophagitis and gastritis and was positive for H. pylori, she was started on medications and was discharged. Patient states she is having a hard time keeping food and fluids down and has been trying to take the meds as prescribed. Patient states she had a seizure for the first time in a while and was seen at a hospital in [place]. Denies having a head CT or any head injury, states they did a CT scan of her abdomen but does not know what the results were. Denies smoking drinking or drug use, no UTI symptoms On exam patient appears mildly anxious but in no acute distress, alert and interactive, lungs clear to auscultation heart with slight tachycardia but no murmur, abdomen soft mild upper abdominal tenderness in the left upper and right upper quadrant moderate to severe tenderness in the epigastric region. No guarding or rebound, no pedal edema or swelling Differential includes but not limited to pancreatitis, gastritis, dehydration, electrolyte abnormalities, ADA, failed outpatient treatment, UTI Plan is symptomatic treatment, labs, fluids, attempting to get the CT scan from the outside hospital to prevent rescanning the patient, monitor and reassessment. Patient understands agrees with plan [CD] ED Course User Index [] Jeffery Benavides DO [CD] Alfredo Parra MD Diagnosis/Impression as of 03/10/241807 Epigastric pain Nausea and vomiting, unspecified vomiting type Dehydration Hypertension, unspecified type Procedures: Procedures MDM: Medical Decision Making The patient is a 29-year-old female with a past medical history of migraines bipolar, and gastritis due to H. pylori who presents evaluation of epigastric pain. Patient notes significant nausea and vomiting. Patient has been having diarrhea. Diarrhea for the last 2 days has had blood in it. Patient was discharged from the hospital 03/05 after undergoing workup for H. pylori. She was started on quadruple therapy. Patient staying on medications prescribed. Patient has been taking Pepcid, Protonix, and Imodium for her symptoms. Patient also has a tension-like headache for which she is taking Tylenol. She does have a history of migraines. She denies any blood in the vomit. Denies any fever or chills. Patient states that yesterday she had a seizure. She was seen at a hospital in [place]. Patient a CT scan of her abdomen at this time in [place]. She has had a cholecystectomy. She denies any shortness of breath, chest pain or genitourinary symptoms. Denies any vaginal bleeding. The first day of her last menstrual period was approximately 3 weeks as she is unable to provide an accurate date. On initial appearance, the patient did appear in pain. Patient did not appear acute distress tho. Patient had multiple episodes of vomiting throughout her ED stay. Patient had mild midepigastric tenderness. No right upper quadrant tenderness or right lower quadrant tenderness. Negative Ayoub's and McBurney's. Patient admitted blood in the stools. Patient showed photographs which there were pools of blood in the stool but no bleeding mixed with stool. Patient was originally given Zofran for nausea. Patient continued to have nausea. Patient given more Zofran and morphine. Patient says her symptoms slightly improved. Patient was then given a GI cocktail. Patient already taken Tylenol, Pepcid, Protonix, Bentyl prior to arrival. Patient was then given Phenergan and morphine. CBC, CMP, lipase, UA, were unremarkable. CT of the abdomen pelvis demonstrated possible enteritis versus ileus. My shift ended. Full care of this patient was assumed by Dr. Parra. Please see his note for final details of this patients ED course. Amount and/or Complexity of Data Reviewed External Data Reviewed: labs, radiology and notes. Details: Were reviewed Labs: ordered. Decision-making details documented in ED Course. Details: See above Radiology: ordered. Details: See above Risk Prescription drug management. Parenteral controlled substances. Flowsheet Documentation: Scoring Tools: No data recorded Disposition/Condition: ED Disposition None Discharge Medications: Patient's Medications START taking these medications No medications on file CONTINUE taking these medications which have NOT CHANGED BISMUTH SUBSALICYLATE 525 MG TAB Take 525 mg by mouth 4 (four) times daily. CARIPRAZINE (VRAYLAR) 1.5 MG CAPSULE Take 1 capsule by mouth in the morning. LORAZEPAM 0.5 MG TABLET Take 1 tablet by mouth. METRONIDAZOLE 500 MG TABLET Take 1 tablet by mouth 4 (four) times daily. OMEPRAZOLE 20 MG CAPSULE Take 1 capsule by mouth in the morning and 1 capsule in the evening. ONDANSETRON 4 MG DISINTEGRATING TABLET Take 1 tablet by mouth every 8 (eight) hours as needed for Nausea and Vomiting (N/V). TETRACYCLINE 500 MG CAPSULE Take 1 capsule by mouth 4 (four) times daily. START taking Modified Medications as Prescribed No medications on file STOP taking these medications No medications on file Follow-up: Electronically signed by: Jeffery Benavides, 03/10/24 1431 Jeffery Benavides, DO 03/10/24 1638 Jeffery Benavides, DO 03/10/24 1713 Jeffery Benavides, 03/10/24 1715 Associated attestation - Alfredo Parra MD - 03/10/2024 5:20 PM CDT Addendum I personally examined and participated in decision-making for this patient with the resident, Dr Benavides Please see the resident note for further details. Lab and imaging studies reviewed Findings discussed with patient Diagnosis 1. Abdominal pain acute Vomiting acute Dehydration acute Ileus acute Plan 1. Took over full care of this patient for Dr. Benavides's shift was over, see my note for further ED course MDM and disposition. Note reviewed Dr. Alfredo Parra MD, FACEP [facility] 2024-03-10 09:36:00 1100 29-year-old female comes in with abdominal pain vomiting and concerns for dehydration. Patient was recently admitted and had a upper endoscopy that showed esophagitis and gastritis and was positive for H. pylori, she was started on medications and was discharged. Patient states she is having a hard time keeping food and fluids down and has been trying to take the meds as prescribed. Patient states she had a seizure for the first time in a while and was seen at a hospital in [place]. Denies having a head CT or any head injury, states they did a CT scan of her abdomen but does not know what the results were. Denies smoking drinking or drug use, no UTI symptoms On exam patient appears mildly anxious but in no acute distress, alert and interactive, lungs clear to auscultation heart with slight tachycardia but no murmur, abdomen soft mild upper abdominal tenderness in the left upper and right upper quadrant moderate to severe tenderness in the epigastric region. No guarding or rebound, no pedal edema or swelling Differential includes but not limited to pancreatitis, gastritis, dehydration, electrolyte abnormalities, ADA, failed outpatient treatment, UTI Plan is symptomatic treatment, labs, fluids, attempting to get the CT scan from the outside hospital to prevent rescanning the patient, monitor and reassessment. Patient understands agrees with plan See ed course for further ER evaluation and MDM. Medical Decision Making See ED course for MDM Problems Addressed: Dehydration: acute illness or injury Epigastric pain: acute illness or injury Hypertension, unspecified type: acute illness or injury Nausea and vomiting, unspecified vomiting type: acute illness or injury Amount and/or Complexity of Data Reviewed Labs: ordered. Decision-making details documented in ED Course. Radiology: ordered. Decision-making details documented in ED Course. Discussion of management or test interpretation with external provider(s): Discussed case with Dr. Edmond for admission Risk Prescription drug management. Parenteral controlled substances. Decision regarding hospitalization. Alfredo Parra MD 03/10/241810 [email or web address] 2024-03-10 09:36:00 AdmissionCare Guideline: Vomiting - OBS, Observation Based on the indications selected for the patient, the bed status of Observation was determined to be MET The following indications were selected as present at the time of evaluation of the patient: - Observation Care Admission Criteria - Observation care is indicated for 1 or more of the following: - Vomiting that persists despite emergency department care AdmissionCare documentation entered by: Alfredo Parra [facility] [employer], 28th edition, Copyright ? 2023 [facility] [employer] [facility] All Rights Reserved. [id number]:01-05:00 [facility] 2024-03-06 08:39:57 TRANSITIONAL CARE MANAGEMENT ASSESSMENT 03/06/2024 Natanael Dyson [id number] Natanael Dyson is a 29 year old /White female was admitted on 03/04/[address] She was discharged on 03/05/24 with discharge disposition of HR- Routine Discharge. Admitting Physician: Jose Mandujano Discharge Diagnosis: Nausea and vomiting, unspecified vomiting type [R11.2] Pt. Voices having stomach issues and will f/u with [facility] GI but not pcp at this time. No linked episodes TCM [id number] outreach documentation: Discharge Assessment Chart Assessed: 03/06/24 TCM Outreach Completed: 03/06/24 Do you have a few minutes to speak with me about how you are doing at home?: Yes Discharge Instructions Do you understand your at-home instructions?: Yes Medications Have you filled your prescriptions and do you have them in your home? : Yes Do you know how to take your medications?: Yes Follow Up Appointment Has a follow up appointment been scheduled?: Yes (pt. states to cancel appointment with PCP and plans to f/u with other external pcp. GI f/u pending with [facility].) Do you have any questions about your [...] time?: No Future Appointments: Marlys Odell LVN [facility] 2024-03-05 15:53:59 Problem: Pain Goal: Control of pain at or below patient's documented comfort goal Outcome: Adequate for discharge Goal: Reduction in pain sensation Outcome: Adequate for discharge Problem: Discharge Planning Goal: Adequate for discharge Outcome: Adequate for discharge Goal: Effective communication Outcome: Adequate for discharge Problem: Falls, Risk of Goal: Absence of falls Outcome: Adequate for discharge Problem: Infection Risk Goal: Absence of infection Outcome: Adequate for discharge Problem: Nausea/Vomiting Goal: Absence of nausea/vomiting Outcome: Adequate for discharge Problem: Fluid Volume - Imbalanced Goal: Absence of imbalanced fluid volume signs and symptoms Outcome: Adequate for discharge Judi Juarez RN [facility] 2024-03-04 22:01:35 Problem: Pain Goal: Control of pain at or below patient's documented comfort goal Outcome: Progressing as expected Goal: Reduction in pain sensation Outcome: Progressing as expected Problem: Discharge Planning Goal: Adequate for discharge Outcome: Progressing as expected Goal: Effective communication Outcome: Progressing as expected Problem: Falls, Risk of Goal: Absence of falls Outcome: Progressing as expected Problem: Infection Risk Goal: Absence of infection Outcome: Progressing as expected Problem: Nausea/Vomiting Goal: Absence of nausea/vomiting Outcome: Progressing as expected Problem: Fluid Volume - Imbalanced Goal: Absence of imbalanced fluid volume signs and symptoms Outcome: Progressing as expected [facility] 2024-03-04 19:44:59 Pt transferred to receiving unit via transport stretcher. At time of departure, pt ao4 resp e/u on RA, no distress noted or declared. No ailments declared. Pt left unit w all belongings and papers w/o incident. Discharge complete T Rita Atkins RN [facility] 2024-03-04 19:13:19 Pt requesting IV pain meds, RN updated pt on ordered intervals for morphine [facility] 2024-03-04 18:12:35 Full report called to receiving nurse including c/c, dx, POC, interventions, IV, VS, pt physical mental and resp status. All questions answered. Transport requested [facility] 2024-03-04 17:44:07 Pt ambulatory to and from indept. Pt back in bed w/o incident. [facility] 2024-03-04 15:37:41 Telephone note was placed by Dr. Vance yesterday. IM-GASTROENTEROLOGY STAFF [facility] 2024-03-04 15:10:00 Pt requesting IV pain medicine as the norco hasn't worked T [facility] 2024-03-04 12:39:35 Aline team paged [facility] 2024-03-04 12:32:04 Pt back to bed w/o incident [facility] 2024-03-04 12:31:47 Pt ambulatory to w standby assistance from RN. T [facility] 2024-03-04 12:18:00 Upon rounding, RN introduced self and updated pt on ED processes and POC. Pt ao4 sitting up in bed watching tv. Pt requesting nausea medicine. No vomiting at this time. No new ailments voiced. Pt rsp e/u on RA. Pt remains on VS monitoring. Call light in reach, bed locked and lowered. Will cont to assess and tx per plan of care T [facility] 2024-03-04 11:15:00 Patient resting in stretcher quietly, no S/S of distress noted, no active vomiting. AAOx4, GCS 15, respirations are even and unlabored, skin warm/dry, color appropriate for ethnicity. Siderails up x2, bed low and locked, call light in reach, will continue to monitor. T Noe Meza RN [facility] 2024-03-04 10:10:00 MD notified pt vomited, failed PO challenge. [facility] Brigida Garcia RN [facility] 2024-03-04 08:05:08 Attempted 20g piv unsucessful x 1 Awaiting staff assistance [facility] 2024-03-04 07:30:00 Patient is alert and oriented x4, respirations are even and unlabored, PPPX4, skin warm and dry, pt complains of sharp abd pain, MM dry. [facility] 2024-03-04 07:24:15 Report given to Martin CURRIE. Patient name and confirmed. Patient chief complaint, current status and assessment findings, allergies, orders, infusion verify, and MAR reviewed. Patient plan of care discussed. Patient/family updated on plan of care and verbalizes understanding at this time. [facility] Meena Crowder RN [facility] 2024-03-04 07:17:20 ERT notified this RN of unsuccessful PIV attempts. This RN at bedside for USG PIV initiation. PIV successfully initiated, but patient immediately requesting PIV be removed due to pain. Additional RN to be notified for additional attempt. [facility] 2024-03-04 07:10:10 Resident at bedside. [facility] 2024-03-04 07:00:00 Natanael Dyson is a 29 year old female presents to ED c/o abdominal pain x couple of weeks. Patient reports was recently seen and admitted, but had to leave early due to child being ill. Patient reports continued N/V, abdominal pain, and diarrhea w/o relief by OTC medication. 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 Patient reports 8/10 pain. Patient denies PMH. Patient resting in ED stretcher. Patient Aox4, NAD noted, VSS, RR e/u. See general and GI focused assessment. [facility] 2024-03-04 06:47:36 Patient to room for further evaluation in WC, NAD noted. [facility] 2024-03-04 06:41:49 Natanael Dyson is a 29 year old female arrives to ED ambulatory with steady gait with complaints of abdominal pain, vomiting, and diarrhea. Patient report vomiting approx 6x and "lots" of diarrhea episodes today, reports bright red blood noted in stool and vomit. Patient reports was recently DC from hospital for same complaint and was DC early due to child being sick. Patient appears to be in pain, RR E/U. Patient to room for further eval. Hany Fritz RN [facility] 2024-03-04 06:39:16 Called for patient, no answer, registration reports patient went to RR, will call again. 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 treatment: Other (comment) Travel and Exposure Screening: Symptoms Does patient have any of these symptoms?: (not recorded) Exposure Screening Has patient had contact with someone with a communicable disease in the last month?: (not recorded) Diseases exposed to:: (not recorded) Is Patient ?: (not recorded) Exposure Date: (not recorded) Chief Complaint: Chief Complaint Patient presents with Abdominal Pain History of Present Illness: Natanael Dyson is a 29 year old female, pmh of breast cancer, B12 deficiency, HTN, lap choly in 2022, recent hospital admission for gastritis + esophagitis workup (left AMA to be with child who was recently diagnosed with Kawasaki), presenting with abdominal pain, continued hematemesis, and bloody diarrhea. Of note workup during recent hospital admission with discharge on 02/26: MRCP showed mild intra and extrahepatic biliary ductal dilation, no choledocholithiasis, unremarkable vessels. GI consulted, patient underwent EGD + flex sig. Findings of esophagitis and gastritis and Aphtha in the rectum and in the recto-sigmoid colon. Patient symptoms improved, able to tolerate PO with nausea resolving and abdominal pain improved with amitriptyline. Past Medical History/Immunizations: Past Medical History: Diagnosis [...] in last 5 years: Unknown Childhood immunizations: Other (comment) Allergies: Allergies Allergen Reactions Nsaids (Non-Steroidal Anti-Inflammatory [...] Use Never smoked or used smokeless tobacco. Passive Exposure: Never Vaping Use Never used Alcohol Use Not Currently. Drug Use Never. Sexual Activity Sexually active; Partners: Male; Control/Protection: Surgical. Past Surgical History: Past Surgical History: Procedure Laterality Date SECTION 2014 SECTION N/A 07/21/2019 Surgeon: Prasanna Vargas MD; Location: [facility] Labor and Delivery OR Location ESOPHAGOGASTRODUODENOSCOPY Upper 02/27/2024 Surgeon: Jas Buenrostro MD; Location: ENDOSCOPY ([facility]) OR LOCATION FLEXIBLE SIGMOIDOSCOPY (SHX) N/A 02/27/2024 Surgeon: Jas Buenrostro MD; Location: ENDOSCOPY ([facility]) OR LOCATION TUBAL LIGATION N/A 07/21/2019 Surgeon: Prasanna Vargas MD; Location: [facility] Labor and Delivery OR Location TUBAL LIGATION Review of Systems: Review of Systems Physical Exam: ED Triage Vitals [03/04/24 0642] Weight 45.4 kg (100 lb) Actual or estimated Estimated by patient/family report Height 1.549 m (5' 1") BP (!) 143/99 Pulse 111 Resp 22 Temp 36.3 ?C (97.4 ?F) Temp source Oral SpO2 100 % Measured on Room air Physical Exam Constitutional: General: She is in acute distress. Appearance: Normal appearance. HENT: Mouth/Throat: Mouth: Mucous membranes are dry. Pharynx: Oropharynx is clear. Cardiovascular: Rate and Rhythm: Regular rhythm. Tachycardia present. Heart sounds: No murmur heard. Pulmonary: Effort: Pulmonary effort is normal. No respiratory distress. Breath sounds: Normal breath sounds. No wheezing or rhonchi. Abdominal: General: There is no distension. Tenderness: There is abdominal tenderness (epigastric tenderness). There is no right CVA tenderness, left CVA tenderness or rebound. Musculoskeletal: Right lower leg: No edema. Left lower leg: No edema. Skin: General: Skin is warm and dry. Neurological: Mental Status: She is alert. Radiology: CT ABDOMEN PELVIS WO CONTRAST Final Result EXAM: CT ABDOMEN PELVIS WO CONTRAST HISTORY: 29 years old Female with abdominal pain vomiting and diarrhea. Abdominal pain, acute, nonlocalized COMPARISON: CT abdomen pelvis dated 05/19/2023.. TECHNIQUE AND FINDINGS: Contiguous axial imaging from the level of the lung bases through the pubic symphysis was performed after administration of intravenous contrast. Coronal and sagittal reconstructions were obtained. Auto mA and/or iterative reconstruction were used to reduce radiation dose. FINDINGS: LOWER THORAX: The lungs bases are clear. No cardiomegaly. LIVER: Liver is normal in size and contour. No focal lesions. GALLBLADDER AND BILIARY TREE: Since the prior cholecystectomy. No biliary ductal dilation. No gallbladder wall thickening. SPLEEN: No splenomegaly. PANCREAS: No ductal dilation or masses. ADRENAL GLANDS: No adrenal nodules. KIDNEYS: Unchanged pelviectasis. Two nonobstructing right renal calculi are noted within the calyces largest measuring approximately 4 mm. No focal lesions. PERITONEUM AND RETROPERITONEUM: Trace pelvic fluid is noted no free air. LYMPH NODES: No lymphadenopathy. GI TRACT: Loss of haustral marking in the descending and sigmoid colon. No significant surrounding inflammatory changes. No dilation or wall thickening. The appendix is grossly normal. PELVIS/BLADDER: Unremarkable. The uterus and ovaries are unremarkable. VESSELS: Unremarkable. BONES AND SOFT TISSUES: No suspicious lytic or sclerotic bony lesions. IMPRESSION No acute intra-abdominal or pelvic abnormality. Loss of haustral marking in the distal colon, nonspecific but can be seen with inflammatory bowel disease or due to diarrhea. Unchanged nonobstructive punctate right renal calculi. Trace free pelvic fluid, likely physiologic. Preliminary Report Dictated by Resident: Jayde Arboleda MD., have reviewed this study and agree with the above report. Lab Results: Lab Results CBC WITH DIFF - Abnormal Result Value Ref Range WBC 8.99 4.30 - 11.10 10*3/?L RBC 4.54 3.93 - 5.25 10*6/?L HGB 13.6 11.6 - 15.0 g/dL HCT 39.5 35.7 - 45.2 % MCV 87.0 80.6 - 95.5 fL MCH 30.0 25.9 - 32.8 pg MCHC 34.4 31.6 - 35.1 g/dL RDW-SD 41.2 39.0 - 49.9 fL RDW-CV 13.1 12.0 - 15.5 % PLT 364 (*) 166 - 358 10*3/?L MPV 9.3 (*) 9.5 - 12.9 fL NRBC/100 WBC 0.0 0.0 - 10.0 /100 WBCs NRBC x10 3 <0.01 10*3/?L GRAN MAT (NEUT) % 80.0 % IMM GRAN % 0.30 % LYMPH % 14.2 % MONO % 3.8 % EOS % 1.4 % BASO % 0.3 % GRAN MAT x10 3 (ANC) 7.18 (*) 1.88 - 7.09 10*3/uL IMM GRAN x10 3 0.03 0.00 - 0.06 10*3/uL LYMPH x10 3 1.28 (*) 1.32 - 3.29 10*3/uL MONO x10 3 0.34 0.33 - 0.92 10*3/uL EOS x10 3 0.13 0.03 - 0.39 10*3/uL BASO x10 3 0.03 0.01 - 0.07 10*3/uL URINALYSIS - Abnormal APPEARANCE Clear Clear COLOR Light Yellow (*) Colorless, Other PH 7.0 4.0 - 8.0 SP GRAVITY 1.011 <=1.030 GLU U QUAL Normal Normal, 30 mg/dL, 50 mg/dL BLOOD Negative Negative KETONES Negative Negative, Trace PROTEIN Negative Negative, 10 mg/dL, 20 mg/dL UROBILIN Normal Normal BILIRUBIN Negative Negative NITRITE Negative Negative LEUK ANJELICA 25/uL Negative, 25/uL RBC/HPF 7 (*) 0 - 3 HPF WBC/HPF 17 (*) 0 - 5 HPF BACTERIA Few (*) Negative MUCOUS Slight (*) Negative LPF SQ EPITH 5 HPF SPERM <1 <=1 HPF COMP. METABOLIC PANEL (94611) - Abnormal NA 138 135 - 145 mmol/L K 4.3 3.5 - 5.0 mmol/L CL 105 98 - 108 mmol/L CO2 TOTAL 23 23 - 31 mmol/L AGAP 10 2 - 16 BUN 10 7 - 23 mg/dL GLUCOSE 90 70 - 110 mg/dL CREATININE 0.72 0.50 - 1.04 mg/dL TOTAL BILI 0.6 0.1 - 1.1 mg/dL CALCIUM 9.6 8.6 - 10.6 mg/dL T PROTEIN 7.2 6.3 - 8.2 g/dL ALBUMIN 4.5 3.5 - 5.0 g/dL ALK PHOS 56 34 - 122 U/L ALTv 40 (*) 5 - 35 U/L AST(SGOT) 31 13 - 40 U/L eGFR 116.2 mL/min/1.73m2 POCT TEST - Normal POCT PREG Negative On board controls acceptable with C Line Yes POCT PREG LOT # [id number] POCT PREG TEST DATE 02/14/2025 LIPASE - Normal LIPASE 97 0 - 220 U/L EKG: If EKG completed, see Procedure Note. Orders and Treatments: Orders Placed This Encounter Procedures CT ABDOMEN PELVIS WO CONTRAST CBC WITH DIFF URINALYSIS POCT TEST COMP. METABOLIC PANEL (27564) LIPASE Orders Placed This Encounter Medications ondansetron (ZOFRAN (PF)) injection 4 mg NaCl 0.9% (NS) bolus infusion 1,000 mL pantoprazole (PROTONIX) injection 40 mg morphine (2 mg/mL) injection 4 mg ondansetron (ZOFRAN (PF)) injection 4 mg morphine (2 mg/mL) injection 4 mg enoxaparin (LOVENOX) injection 40 mg acetaminophen (TYLENOL) tablet 650 mg HYDROcodone-acetaminophen (NORCO 5) tablet 1 tablet DISCONTD: morphine (2 mg/mL) injection 2 mg ondansetron (ZOFRAN (PF)) injection 4 mg pantoprazole (PROTONIX) injection 40 mg proMETHazine (PHENERGAN) 12.5 mg in NS 50 mL IV piggyback (CNR) morphine (2 mg/mL) injection 4 mg First Provider Eval: ED Events Date/Time Event User Comments 03/04/24658 Medical Screening Begins ALEXANDER RICHARD -- 03/04/24658 First Provider Evaluation ALEXANDER RICHARD -- ED COURSE ED Course as of 03/04/24 1434 SatMar 04, 2024 1236 Medicine will see the patient [DK] 1212 Medicien team paged again [DK] 1135 Medicine team paged again [DK] 1120 Medicine tream paged [DK] 0950 CT ABDOMEN PELVIS WO CONTRAST No acute intra-abdominal or pelvic abnormality. Unchanged nonobstructive punctate right renal calculi. Trace free pelvic fluid, likely physiologic. [DK] 0840 LIPASE: 97 wnl [DK] 0818 POCT PREG: Negative [DK] 0807 Patient recently admitted for GI bleeding with extensive workup. She underwent a esophagogastroduodenoscopy. Will recheck labs. Probably will be readmitted. [AM] ED Course User Index [AM] Ana Laguerre [DK] Alexander Richard MD Diagnosis/Impression as of 03/04/24 1434 Nausea and vomiting, unspecified vomiting type Epigastric pain Procedures: Procedures MDM: Medical Decision Making Natanael Dyson is a 29 year old female, pmh of breast cancer, B12 deficiency, HTN, lap choly in 2022, recent hospital admission for gastritis + esophagitis workup (left AMA to be with child who was recently diagnosed with Kawasaki), presenting with abdominal pain, continued hematemesis, and bloody diarrhea. Of note workup during recent hospital admission with discharge on 10/17: MRCP showed mild intra and extrahepatic biliary ductal dilation, no choledocholithiasis, unremarkable vessels. GI consulted, patient underwent EGD + flex sig. Findings of esophagitis and gastritis and Aphtha in the rectum and in the recto-sigmoid colon. Patient symptoms improved, able to tolerate PO with nausea resolving and abdominal pain improved with amitriptyline. On arrival tachy to 111, afebrile. Physical exam notable for epigastric tenderness to palpation. Ddx includes but is not limited to continued gastritis, pancreatitis, biliary colic, electrolyte abnormality, GI bleed. Lipase wnl. CBC wnl. Cmp wnl. UPT negative. CTAP demonstraing No acute intra-abdominal or pelvic abnormality. Unchanged nonobstructive punctate right renal calculi.Trace free pelvic fluid, likely physiologic. P.O. trial to see if patient improves and is able to tolerate intake. Patient continues to vomit during ED course. Will admit to medicine for further medical workup and management. VSS during ED course. Amount and/or Complexity of Data Reviewed Labs: ordered. Decision-making details documented in ED Course. Radiology: ordered. Decision-making details documented in ED Course. Risk Prescription drug management. Parenteral controlled substances. Decision regarding hospitalization. Flowsheet Documentation: Scoring Tools: No data recorded Disposition/Condition: ED Disposition ED Disposition Admit - Observation Condition -- Comment Treatment Team: KORI [[id number]] Discharge Medications: Patient's Medications START taking these medications No medications on file CONTINUE taking these medications which have NOT CHANGED BISMUTH SUBSALICYLATE 525 MG TAB Take 525 mg by mouth 4 (four) times daily for 14 days. CARIPRAZINE (VRAYLAR) 1.5 MG CAPSULE Take 1 capsule by mouth in the morning. LORAZEPAM 0.5 MG TABLET Take 1 tablet by mouth. METRONIDAZOLE 500 MG TABLET Take 1 tablet by mouth 4 (four) times daily for 14 days. OMEPRAZOLE 20 MG CAPSULE Take 1 capsule by mouth in the morning and 1 capsule in the evening. Do all this for 14 days. ONDANSETRON 4 MG DISINTEGRATING TABLET Take 1 tablet by mouth every 8 (eight) hours as needed for Nausea and Vomiting (N/V). PANTOPRAZOLE 40 MG EC TABLET Take 1 tablet by mouth in the morning and 1 tablet in the evening. TETRACYCLINE 500 MG CAPSULE Take 1 capsule by mouth 4 (four) times daily for 14 days. START taking Modified Medications as Prescribed No medications on file STOP taking these medications AMITRIPTYLINE 25 MG TABLET Take 1 tablet by mouth at bedtime. Follow-up: Electronically signed by: Alexander Richard MD 03/04/24 1434 Associated attestation - Jesus Muñoz MD - 03/04/2024 2:46 PM CDT Addendum I personally examined and participated in decision-making for this patient with the resident. Please see the resident note for further details. Lab and imaging studies reviewed Findings discussed with patient Diagnosis 1. Uncontrolled nausea vomiting Plan 1. Readmit to medicine team [facility] 2024-03-03 11:17:18 [address] with H pylori and EOE Called patient to explain results and further management. Will prescribe bismuth quadruple therapy for hpylori treatment followed by stool h pylori Ag to confirm eradication 4 weeks after completing h pylori treatment (Noted allergy to NSAID, but bismuth subsalicylate should not cause allergy. Additionally, patient has tolerated pepto bismol before.) Will also start on PPI BID for EOE and follow up in clinic for response. Discussed nature of disease, surveillance using GEDs and Bx and further lines of treatment in case of no response Giselle Vance MD PGY 5 Gastroenterology and Hepatology [facility] 2024-02-28 09:07:48 TRANSITIONAL CARE MANAGEMENT ASSESSMENT 02/28/2024 Natanael Dyson [id number] Natanael Dyson is a 29 year old /White female was admitted on 02/22/[address] She was discharged on 02/27/24 with discharge disposition of HR- Routine Discharge. Admitting Physician: Hany Lee Discharge Diagnosis: FINAL DIAGNOSIS: (the reason, after study, for admitting the patient to the hospital) Esophagitis Gastritis Linked Episodes Type: Episode: Status: Noted: Resolved: Last update: Updated by: TRANSITION OF CARE TCM Active 02/27/2024 02/28/2024 9:07 AM Tc Renteria RN Comments: TCM [id number] outreach documentation: Discharge Assessment Chart Assessed: 02/28/24 TCM Outreach Completed: 02/28/24 Do you have a few minutes to speak with me about how you are doing at home?: Yes (Pt reports she is doing ok.) Discharge Instructions Do you understand your at-home instructions?: Yes (No questions at this time.) Medications Have you filled your prescriptions and do you have them in your home? : Yes Do you know how to take your medications?: Yes (No questions.) Can you provide me with the names or descriptions of any [id number] or supplements you are currently taking?: Yes (None) Supplies Did you receive applicable home medical supplies/equipment?: N/A Follow Up Appointment Has a follow up appointment been scheduled?: Yes Are you able to get to your appointment? Who will be taking you?: Yes (Pt states she has transportation.) Home Health Assistance Has the home health nurse contacted you since you've been home?: N/A Survey - Recognition Do you have any other questions or concerns at this time?: No Future Appointments: Future Appointments Provider Department Dept Phone 03/10/2024 10:00 AM [phone] I Renteria RN [facility] 2024-02-27 15:43:07 Addendum created 02/27/24 1543 by Blanca Leavitt CRNA Intraprocedure Meds edited NACR-NURSE MATERIAL REQUISITIONER,CERTIFIED REGISTERED NURSE MATERIAL REQUISITIONER [facility] 2024-02-27 12:01:14 Patient: Natanael Dyson Procedure Summary Date: 02/27/24 Room / Location: [place] [address] / ENDOSCOPY ([facility]) OR LOCATION Anesthesia Start: 921 Anesthesia Stop: 1026 Procedures: ESOPHAGOGASTRODUODENOSCOPY (Upper: Esophagus) FLEXIBLE SIGMOIDOSCOPY (Rectum) Diagnosis: Abdominal pain, unspecified abdominal location (Abdominal pain, unspecified abdominal location [R10.9]) Surgeons: Jas Buenrostro MD Responsible Provider: Peter Reece MD Anesthesia Type: TIVA ASA Status: 2 Anesthesia Type: TIVA Last vitals BP 124/82 (02/27/24 1105) Temp Pulse 105 (02/27/24 1105) Resp 10 (02/27/24 1105) SpO2 99 % (02/27/24 1105) There were no known notable events for this encounter. Anesthesia Post Evaluation Patient location during evaluation: PACU Patient participation: complete - patient participated Level of consciousness: awake and alert Pain management: satisfactory to patient Airway patency: patent Cardiovascular status: acceptable and blood pressure returned to baseline Respiratory status: acceptable Hydration status: acceptable AN-ANESTHESIOLOGY ANESTHESIOLOGIST [facility] 2024-02-27 07:19:18 Problem: Pain Goal: Control of pain at or below patient's documented comfort goal Outcome: Progressing as expected Goal: Reduction in pain sensation Outcome: Progressing as expected Problem: Falls, Risk of Goal: Absence of falls Outcome: Progressing as expected Problem: Infection Risk Goal: Absence of infection Outcome: Progressing as expected Problem: Discharge Planning Goal: Adequate for discharge Outcome: Progressing as expected Goal: Effective communication Outcome: Progressing as expected Problem: Nutrition Deficit Goal: Adequate nutritional intake Outcome: Progressing as expected Sheyla Sharma RN [facility] 2024-02-27 06:29:41 Name/ MRN / Age / Gender: Natanael Dyson, [id number] 29 year old female BMI: Estimated body mass index is 18.89 kg/m? as calculated from the following: Height as of this encounter: 1.549 m (5' 1"). Weight as of this encounter: 45.4 kg (100 lb). Allergies: Nsaids (non-steroidal anti-inflammatory drug), Compazine [prochlorperazine], Compazine [prochlorperazine], Haldol [haloperidol lactate], Haloperidol, Iodine, Latex, Reglan [metoclopramide], Toradol [ketorolac], Latex, and Reglan [metoclopramide hcl] Last Vitals: BP Readings from Last 1 Encounters: 02/27/24 (!) 152/88 Pulse Readings from Last 1 Encounters: 02/27/24 83 SpO2 Readings from Last 1 Encounters: 02/27/24 100% Date of Surgery: 02/27/2024 Surgeon: Jas Buenrostro MD Procedure: ESOPHAGOGASTRODUODENOSCOPY (Upper) FLEXIBLE SIGMOIDOSCOPY (Rectum) OR Location: ENDOSCOPY ([facility]) OR LOCATION Anesthesia Preop Eval (physical exam) Anesthesia Preop: Chart Review and Woca-pe-Fqtm NPO Status Verified Clear Liquids: > 2 Hours Solid Food/Non-Clear Liquids: > 8 Hours PONV Risk Factors: female and non-smoker Anesthesia History Anesthesia History Negative Anesthesia History Negative per Chart Review Previous Anesthetics/Airways Cardiovascular Comments: TTE (04/13/2020): Interpretation Summary A two-dimensional transthoracic echocardiogram with M-mode and Doppler was performed. The study was diagnostic quality. There is no comparison study available. Ejection Fraction = 55-60%. Diastolic function is normal. The left ventricular wall motion is normal. Estimated RA pressure is 0-5 mmHg. Insufficient Tricuspid regurgitation jet to estimate RVSP. (+) Hypertension Pulmonary (+) Asthma Neuro/Musculoskeletal (+) Psychiatric history and depression GI/Hepatic Comments: Date of Service: 02/26/2024 History of Present [...] Has occasional nausea and vomiting no hematemesis. Hematology Comments: 02/27/24 04:37 WBC x10 3 : 5.27 RBC x10 6 : 4.34 HGB: 12.9 HCT: 38.8 MCV: 89.4 MCH: 29.7 MCHC: 33.2 RDW-SD: 42.5 RDW-CV: 13.0 PLT x10 3 : 268 (+) Anemia Renal Comments: 02/27/24 04:37 NA: 136 K: 3.4 (L) CL: 99 CO2 TOTAL: 28 AGAP: 9 BUN: <2 (L) GLUCOSE: 97 CREATININE: 0.73 (L): Data is abnormally low (+) Nephrolithiasis Skin (+) Current IV access Endo/Other Negative Endo/Other ROS Endocrine/other ROS Negative per Chart Review Other INTEGRATION SOLUTION ARCHITECT INTEGRATION SOLUTION ARCHITECT ROS Negative per Chart Review Comments: H/o breast cancer Pediatric Pediatric N/A N/A Preoperative Medication Instructions Continue taking all prescribed medications except: LUIS inhibitors, ARBs, diuretics, all oral diabetes medications Anticoagulant Therapy: Defer to surgeons Insulin: Take 1/2 dose the night prior to surgery. Hold on DOS. Phentermine: Alert [facility] anesthesiologist SGLT2 Inhibitors: "gliflozins" to be held for 3 days prior to elective surgeries GLP1 Agonosit: stop 7 days prior to surgery MAC Cases: Continue taking LUIS inhibitors and ARBs ASA Classification ASA: 2 Labs: Chemistry 02/27/2024 CBC 02/27/2024 136 99 <2 (L) 97 5.27 12.9 268 3.4 (L) 28 0.73 38.8 eGFR: 114.3 Date: 02/27/2024 ANC: 2.31 Date: 02/27/2024 LFTs 02/27/2024 Coags AST: 68 (H) AP: 80 Prot: 6.6 Ca: 8.7 PT: 11.5 Date: 02/26/2024 ALT: 137 (H) T Quincy: 0.7 Alb: 3.9 PTT: 30 Date: 08/23/2023 PO4: - Date: - INR: 1.0 Date: 02/26/2024 Cardiac Endocrine & other pBNP: - Date: - A1C: 4.5 Date: 08/23/2023 Trop I: 0.006 Date: 02/22/2024 POCT A1C: - Date: - CK: 29 (L) Date: 02/25/2024 TSH: 0.92 Date: 08/23/2023 CKMB: - Date: - FT4: - Date: - LDL: 76 Date: 08/23/2023 Lact: - Date: - Procal: - Date: - Respiratory -|-|-|-|- D-dimer: - ABG Date: - Date: - Miscellaneous Type and Screen: A Positive Antibody: Negative Date: 08/15/2021 POCT : Negative Date: 05/19/2023 Current Medications: Outpatient Medications Marked as Taking for the 02/22/24 encounter (Hospital Encounter) Medication Sig Dispense Refill cariprazine (VRAYLAR) 1.5 mg capsule Take 1 capsule by mouth in the morning. LORazepam 0.5 mg tablet Take 1 tablet by mouth. Previous Surgeries: Past Surgical History: Procedure Laterality Date SECTION 2014 SECTION N/A 07/21/2019 Surgeon: Prasanna Vargas MD; Location: [facility] Labor and Delivery OR Location TUBAL LIGATION N/A 07/21/2019 Surgeon: Prasanna Vargas MD; Location: [facility] Labor and Delivery OR Location TUBAL LIGATION Anesthesia Physical Exam General alert and oriented x 3 Neuro/Psych neurological Dental dental caries Abdominal C/o continuous abd pain Airway Mallampati score:I TM distance:> 5 cm Neck ROM: full Mouth opening:small Extremity Normal extremity Pulmonary pulmonary exam normal Other Cardiovascular cardiovascular exam normal Anesthesia Plan ASA Status: 2 Anesthetic plan on DOS: TIVA Plan to include: IV induction and face mask Anesthesia plan discussed with: 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 Chart/ interval hx/ lab data reviewed. NPO status confirmed. Anesthetic plan d/w pt and she understands/ wishes to proceed. Consent obtained. [facility] 2024-02-27 06:15:00 Rec'd report from sheyla CURRIE. Pt AAO, RA, no ISO,denies overnight vomiting, rec'd enema about 0500 and have since been having BMs per RN. Bobbi Du RN [facility] 2024-02-26 13:07:55 Problem: Falls, Risk of Goal: Absence of falls Outcome: Progressing as expected Problem: Infection Risk Goal: Absence of infection Outcome: Progressing as expected Problem: Discharge Planning Goal: Adequate for discharge Outcome: Progressing as expected Goal: Effective communication Outcome: Progressing as expected Problem: Nutrition Deficit Goal: Adequate nutritional intake Outcome: Progressing as expected Problem: Pain Goal: Control of pain at or below patient's documented comfort goal Outcome: Not progressing as expected Goal: Reduction in pain sensation Outcome: Not progressing as expected Tete Louis RN [facility] 2024-02-25 23:57:35 Problem: Pain Goal: Control of pain at or below patient's documented comfort goal Outcome: Progressing as expected Goal: Reduction in pain sensation Outcome: Progressing as expected Problem: Falls, Risk of Goal: Absence of falls Outcome: Progressing as expected Problem: Infection Risk Goal: Absence of infection Outcome: Progressing as expected Problem: Discharge Planning Goal: Adequate for discharge Outcome: Progressing as expected Goal: Effective communication Outcome: Progressing as expected Problem: Nutrition Deficit Goal: Adequate nutritional intake Outcome: Progressing as expected Cheryl Vásquez RN [facility] 2024-02-25 07:09:28 Problem: Pain Goal: Control of pain at or below patient's documented comfort goal Outcome: Progressing as expected Goal: Reduction in pain sensation Outcome: Progressing as expected Problem: Falls, Risk of Goal: Absence of falls Outcome: Progressing as expected Problem: Infection Risk Goal: Absence of infection Outcome: Progressing as expected Problem: Discharge Planning Goal: Adequate for discharge Outcome: Progressing as expected Goal: Effective communication Outcome: Progressing as expected Problem: Nutrition Deficit Goal: Adequate nutritional intake Outcome: Progressing as expected [facility] 2024-02-24 09:16:21 Uploaded to OnBase: [facility] Bobbi vargas, PCP 02/24/2024 9:17 am T Bobbi Saini [facility] 2024-02-24 03:16:43 Problem: Pain Goal: Control of pain at or below patient's documented comfort goal Outcome: Progressing as expected Problem: Falls, Risk of Goal: Absence of falls Outcome: Progressing as expected Problem: Infection Risk Goal: Absence of infection Outcome: Progressing as expected Problem: Discharge Planning Goal: Adequate for discharge Outcome: Progressing as expected [facility] 2024-02-23 19:02:34 Problem: Pain Goal: Control of pain at or below patient's documented comfort goal Outcome: Progressing as expected Goal: Reduction in pain sensation Outcome: Progressing as expected Problem: Falls, Risk of Goal: Absence of falls Outcome: Progressing as expected Problem: Infection Risk Goal: Absence of infection Outcome: Progressing as expected Problem: Discharge Planning Goal: Adequate for discharge Outcome: Progressing as expected Goal: Effective communication Outcome: Progressing as expected Problem: Nutrition Deficit Goal: Adequate nutritional intake Outcome: Progressing as expected T Sheldon Montague RN [facility] 2024-02-22 22:09:02 Problem: Pain Goal: Control of pain at or below patient's documented comfort goal Outcome: Progressing as expected Goal: Reduction in pain sensation Outcome: Progressing as expected Problem: Falls, Risk of Goal: Absence of falls Outcome: Progressing as expected Problem: Infection Risk Goal: Absence of infection Outcome: Progressing as expected Problem: Discharge Planning Goal: Adequate for discharge Outcome: Progressing as expected Goal: Effective communication Outcome: Progressing as expected Problem: Nutrition Deficit Goal: Adequate nutritional intake Outcome: Progressing as expected [facility] 2024-02-22 19:25:41 Pt to [place] [id number] at this time via [facility] transport in stretcher. Patient in possession of all belongings. VSS, Respirations even and unlabored, AAOx4, NAD noted. T Dennise Kirkland RN [facility] 2024-02-22 19:09:18 Patient requesting medication for anxiety. Team paged at this time. [facility] 2024-02-22 19:00:00 Report received from Brent CURRIE. Previous treatment and plan of care discussed. Patient resting in bed. Bed locked and in lowest position. Call light within reach. RR even and unlabored. VSS. A&Ox4. NAD noted. Awaiting transport upstairs. [facility] 2024-02-22 18:32:24 Report given to RN. Patient to be admitted to [facility]. Patient verbalized understanding of plan of care. Patient A&O x4. VSS. NAD noted. Resp even and non labored. Skin warm and dry. IV patent. Belongings to be sent with patient. Awaiting transportation. T Brent Solis RN [facility] 2024-02-22 17:45:00 Pt ambulatory to and from restroom with steady gait in NAD [facility] 2024-02-22 15:45:00 Pt laying in bed meds given per MAR waiting on bed place ment, pt A&Ox4 resp even and unlabored gcs 15 [facility] 2024-02-22 13:45:00 Pt resting comfortably, skin normal warm and dry, resp even and unlabored. VSS. Bed in lowest, locked position, side rails up. Call light within reach. Awaiting results. [facility] 2024-02-22 11:45:00 Pt sitting in bed A&Ox4 , skin normal warm and dry, resp even and unlabored. VSS. Bed in lowest, locked position, side rails up. Call light within reach. Awaiting results. [facility] 2024-02-22 09:45:00 Natanael Dyson is a 29 year old female arrives via triage to room 108 for further evaluation for abdominal pain with N/V/D for a couple weeks, pt reports symptoms started shortly after gallbladder sx. Patient reports seen at OSH 2 days ago with same symptoms. Allergies verified. Patient denies CP, SOB,cough, fever, chills, urinary symptoms. Patient is AOX3 respirations even and unlabored. Skin warm and dry. NAD. All needs met at this time, will continue to monitor. Awaiting further orders. [facility] 2024-02-22 09:31:00 Natanael Dyson is a 29 year old female c/o brayan umbical pain x 1 week. Pain worsening x 4 days. Seen at hospital in [place]. Reports no relief with zofran. Also reports vomiting/diarrhea. Reports blood in stool and emesis. No fever. Denies urinary. Denies . 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 Dyson is a 29yf w/ PMH breast cancer (dx 3y ago, s/p doxorubicin), reported seizure disorder (last seizure at 15 years old, discontinued Depakote this year), and bipolar. She presents today for abdominal pain and hematemesis. Over a year ago Ms. Dyson underwent a cholecystectomy and since then her "stomach has been messed up". She has been having increasing abdominal pain, nausea, vomiting, and diarrhea; recently, her symptoms have worsened to the point where she can't readily keep down food or fluids. She describes her abdominal pain as severe, stabbing, and burning. She has 8-9 bright yellow watery bowel movements daily with blood. Her vomit is similarly bright yellow with blood. She has additionally been having recent dizziness and syncopal episodes, the most recent of which was about two days ago. 2-3 days ago she presented for evaluation in [place]; she was told that she was dehydrated and would have to see a food tester; however, she says that she cannot afford this. History provided by: Patient material reclaimer used: No Past Medical History/Immunizations: Past Medical [...] Childhood immunizations: Up-to-date Allergies: Allergies Allergen Reactions Nsaids (Non-Steroidal Anti-Inflammatory Drug) Hives and Shortness of Breath Compazine [Prochlorperazine] Hives Tolerates promethazine Compazine [Prochlorperazine] Hives Haldol [Haloperidol Lactate] Hives Haloperidol Other - See comments Pt states, "I get angry". Latex Itching and Rash Reglan [Metoclopramide] Other - See comments Agitated Toradol [Ketorolac] Hives Latex Rash Reglan [Metoclopramide Hcl] Anxiety Patient says she gets figity, angry and mean Past Social History: Tobacco Use Never smoked or used smokeless tobacco. Passive Exposure: Never Vaping Use Never used Alcohol Use Not Currently. Drug Use Never. Sexual Activity Sexually active; Partners: Male; Control/Protection: Surgical. Past Surgical History: Past Surgical History: Procedure Laterality Date SECTION 2014 SECTION N/A 07/21/2019 Surgeon: Prasanna Vargas MD; Location: [facility] Labor and Delivery OR Location TUBAL LIGATION N/A 07/21/2019 Surgeon: Prasanna Vargas MD; Location: [facility] Labor [facility] Delivery OR Location TUBAL LIGATION Review of Systems: Review of Systems Constitutional: Positive for chills, fatigue and unexpected weight change (Lost 50lb in 1y). Negative for fever. Respiratory: Negative for cough and shortness of breath. Cardiovascular: Negative for chest pain and leg swelling. Gastrointestinal: Positive for abdominal pain, blood in stool, diarrhea, nausea and vomiting. Genitourinary: Negative for dysuria. Skin: Negative for rash. Neurological: Positive for dizziness, syncope and light-headedness. Physical Exam: ED Triage Vitals [02/22/24 0933] Weight 44.9 kg (99 lb) Actual or estimated Height 1.549 m (5' 1") BP (!) 167/103 Pulse 92 Resp 23 Temp 36.6 ?C (97.9 ?F) Temp source Oral SpO2 100 % Measured on Room air Physical Exam Constitutional: General: She is in acute distress (Due to pain). Appearance: She is not ill-appearing, toxic-appearing or diaphoretic. HENT: Head: Normocephalic and atraumatic. Mouth/Throat: Mouth: Mucous membranes are moist. Pharynx: Oropharynx is clear. Cardiovascular: Rate and Rhythm: Regular rhythm. Tachycardia present. Heart sounds: Normal heart sounds. No murmur heard. No friction rub. No gallop. Pulmonary: Effort: Pulmonary effort is normal. No respiratory distress. Breath sounds: Normal breath sounds. No stridor. No wheezing, rhonchi or rales. Abdominal: General: Abdomen is flat. Bowel sounds are normal. There is no distension. Palpations: Abdomen is soft. Tenderness: There is abdominal tenderness (Moderate, epigastric/periumbilical). There is no guarding or rebound. Musculoskeletal: Right lower leg: No edema. Left lower leg: No edema. Skin: General: Skin is warm and dry. Neurological: Mental Status: She is alert and oriented to person, place, and time. Radiology: XR CHEST 2 VW Final Result ORDERING PROVIDER: COLIN MONGERICAL HISTORY: Hematemesis TECHNIQUE: Frontal and lateral views of the Chest. COMPARISON: None IMPRESSION Lungs are clear without pneumothorax or effusion. The cardiomediastinal silhouette is within normal limits. No visualized acute osseous abnormality. RL: 7532 END REPORT. ABDOMEN LIMITED Final Result ORDERING PROVIDER: COLIN WARREN HISTORY: N/v/diarrhea worsening since cholecystectomy EXAM: Right upper quadrant ultrasound TECHNIQUE: Malik scale and color Doppler sonography of the right upper quadrant performed. Spectral Doppler imaging of the liver obtained. Images were acquired for permanent storage in the patient's medical record. COMPARISON:none FINDINGS: The liver is homogeneous in echotexture without appreciable focal lesions or intrahepatic ductal dilatation. Hepatopedal flow in the portal vein. Visualized aorta, IVC, and pancreas unremarkable. Gallbladder is surgically absent. Suspect fluid within the gallbladder fossa. Postcholecystectomy change of the common bile duct measuring 7 mm. The right kidney is normal in size The right kidney shows no evidence of hydronephrosis or appreciable focal lesions. There is normal cortical thickness, contour and echogenicity. IMPRESSION Postoperative changes of cholecystectomy. There may be minimal fluid in the gallbladder fossa. CT can further assess if there is continued concern. RL: 7532 END REPORT. Lab Results: Lab Results CBC WITH DIFF - Abnormal Result Value Ref Range WBC 8.59 4.30 - 11.10 10*3/?L RBC 5.01 3.93 - 5.25 10*6/?L HGB 14.8 11.6 - 15.0 g/dL HCT 43.2 35.7 - 45.2 % MCV 86.2 80.6 - 95.5 fL MCH 29.5 25.9 - 32.8 pg MCHC 34.3 31.6 - 35.1 g/dL RDW-SD 41.3 39.0 - 49.9 fL RDW-CV 13.2 12.0 - 15.5 % PLT 329 166 - 358 10*3/?L MPV 9.9 9.5 - 12.9 fL NRBC/100 WBC 0.0 0.0 - 10.0 /100 WBCs NRBC x10 3 <0.01 10*3/?L GRAN MAT (NEUT) % 66.5 % IMM GRAN % 0.30 % LYMPH % 26.8 % MONO % 3.5 % EOS % 2.3 % BASO % 0.6 % GRAN MAT x10 3 (ANC) 5.71 1.88 - 7.09 10*3/uL IMM GRAN x10 3 0.03 0.00 - 0.06 10*3/uL LYMPH x10 3 2.30 1.32 - 3.29 10*3/uL MONO x10 3 0.30 (*) 0.33 - 0.92 10*3/uL EOS x10 3 0.20 0.03 - 0.39 10*3/uL BASO x10 3 0.05 0.01 - 0.07 10*3/uL COMP. METABOLIC PANEL (11412) - Abnormal NA 137 135 - 145 mmol/L K 3.9 3.5 - 5.0 mmol/L CL 102 98 - 108 mmol/L CO2 TOTAL 24 23 - 31 mmol/L AGAP 11 2 - 16 BUN 9 7 - 23 mg/dL GLUCOSE 94 70 - 110 mg/dL CREATININE 0.70 0.50 - 1.04 mg/dL TOTAL BILI 1.0 0.1 - 1.1 mg/dL CALCIUM 9.3 8.6 - 10.6 mg/dL T PROTEIN 8.4 (*) 6.3 - 8.2 g/dL ALBUMIN 5.0 3.5 - 5.0 g/dL ALK PHOS 79 34 - 122 U/L ALTv 74 (*) 5 - 35 U/L AST(SGOT) 57 (*) 13 - 40 U/L eGFR 120.2 mL/min/1.73m2 URINALYSIS - Abnormal APPEARANCE Clear Clear COLOR Colorless Colorless, Other PH 7.5 4.0 - 8.0 SP GRAVITY 1.011 <=1.030 GLU U QUAL Normal Normal, 30 mg/dL, 50 mg/dL BLOOD 1+ (*) Negative KETONES Negative Negative, Trace PROTEIN Negative Negative, 10 mg/dL, 20 mg/dL UROBILIN Normal Normal BILIRUBIN Negative Negative NITRITE Negative Negative LEUK ANJELICA Negative Negative, 25/uL RBC/HPF 47 (*) 0 - 3 HPF WBC/HPF 1 0 - 5 HPF BACTERIA Negative Negative SQ EPITH 5 HPF LIPASE - Normal LIPASE 69 0 - 220 U/L TROPONIN I - Normal TROPONIN I 0.006 <=0.034 ng/mL TEST, SERUM PREG SERUM Negative EKG: If EKG completed, see Procedure Note. Orders and Treatments: Orders Placed This Encounter Procedures XR CHEST 2 VW US ABDOMEN LIMITED CBC WITH DIFF COMP. METABOLIC PANEL (75931) LIPASE URINALYSIS TROPONIN I TEST, SERUM O2 Per Protocol Orders Placed This Encounter Medications NaCl 0.9% (NS) bolus infusion 1,000 mL ondansetron (ZOFRAN (PF)) injection 4 mg famotidine (PEPCID (PF)) injection 20 mg morphine (2 mg/mL) injection 4 mg proMETHazine (PHENERGAN) 25 mg in NS 50 mL IV piggyback (CNR) morphine (2 mg/mL) injection 4 mg heparin (porcine) injection 5,000 Units First Provider Eval: ED Events Date/Time Event User Comments 02/22/24935 Medical Screening Begins ADRIANA PIEDRA T -- 02/22/24935 First Provider Evaluation ADRIANA PIEDRA -- ED COURSE Diagnosis/Impression as of 02/22/24 1425 Vomiting and diarrhea Procedures: Procedures MDM: Medical Decision Making Ms. Dyson is a 29yf w/ PMH breast cancer (3y ago), seizure disorder (remote hx, no recent seizures) bipolar disorder, and prior cholecystectomy who presents for worsening abdominal pain, bloody diarrhea, and nausea with vomiting/hematemesis that began after her cholecystectomy. On presentation she is distressed but hemodynamically stable. Initial differential includes late biliary complications from cholecystectomy, pancreatitis, IBD, and PUD. Initial lab workup was reassuring and limited abdominal ultrasound showed only trace fluid in the gallbladder fossa. Her abdominal pain, nausea, and vomiting only showed minimal improvement with treatment in the ED. She remained hemodynamically stable throughout her ED course. Given her continued abd pain/n/v and inability to keep down fluids, she is appropriate for admission to medicine. Amount and/or Complexity of Data Reviewed Labs: ordered. Decision-making details documented in ED Course. Radiology: ordered. Decision-making details documented in ED Course. Risk Prescription drug management. Parenteral controlled substances. Flowsheet Documentation: Scoring Tools: No data recorded Disposition/Condition: ED Disposition ED Disposition Admit - Observation Condition -- Comment Treatment Team: KORI [[id number]] Discharge Medications: Patient's Medications START taking these medications No medications on file CONTINUE taking these medications which have NOT CHANGED ALBUTEROL 90 MCG/ACTUATION INHALER Inhale 2 Puffs every 6 (six) hours as needed for Wheezing or Shortness of Breath. BACLOFEN 10 MG TABLET Take 1 tablet by mouth every 6 (six) hours as needed. [id number]-[id number] (FIORICET) 50-300-40 MG PER CAPSULE Take 1 [...] mouth 3 (three) times daily as needed. ESCITALOPRAM OXALATE (LEXAPRO) 10 MG TABLET Take 1 tablet by mouth in the morning. GABAPENTIN 600 MG TABLET GALCANEZUMAB-GNLM PREFILLED (EMGALITY) [...] mouth 2 (two) times daily as needed. METOPROLOL TARTRATE 50 MG TABLET Take 1 tablet by mouth in the morning and 1 tablet in the evening. MIRTAZAPINE 15 MG TABLET Take 1 tablet by mouth at bedtime. OLANZAPINE 10 MG TABLET Take 1 tablet by mouth in the morning. ONDANSETRON 4 MG DISINTEGRATING TABLET Take 1 tablet by mouth every 8 (eight) hours as needed for Nausea and Vomiting (N/V). ONDANSETRON 4 MG TABLET Take 1 tablet by mouth every 8 (eight) hours as needed for Nausea and Vomiting (N/V). QUETIAPINE 400 MG TABLET RIZATRIPTAN 10 MG TABLET Take 1 tablet by mouth as needed for Migraine. May repeat in 2 hours if needed SUMATRIPTAN 50 MG TABLET Take 1 tablet [...] these medications No medications on file Follow-up: - Admitting to [facility] Electronically signed by: Adriana Piedra MD Internal Medicine PGY-3 [place] Team Adriana Piedra MD 02/22/24 1425 Associated attestation - Colin Jones DO - 02/26/2024 2:33 PM CDT I have seen and examined the patient and agree with the history, review of symptoms, physical exam, plan as outlined by Dr. Piedra. I actively participated in decision making process. Please see resident note for additional information. 29yo female presents for abd pain. Pt notes she had cholecystectomy in 02/02 and since then has had abd pain to epigastric abd. Notes pain associated with n/v. Notes n/v has recently gotten worse and is now have hematemesis and bloody diarrhea. No fevers. Reports sig weight loss. Reports went to OSH and had CT abd/pelvis 2 days ago which was reportedly normal. Also notes she thinks she had a reaction to contrast to OSH. Labs not acute. US with fluid in gallbladder fossa which was noted on previous CT. Pt given zofran, morphine, phenergan in ER with persistent vomiting noted after. Case discussed with [facility] team. Plan made to admit for intractable vomiting and persistent abd pain. Pt had recent CT and allergic reaction. Will defer repeat CT to primary team if needed as she will need pre-treatment for allergy Diagnosis: Intractable vomiting Abdominal pain Plan: Admit to Internal Medicine Janett Warren INTERNAL MEDICINE [facility] 2023-08-27 16:08:07 TRANSITIONAL CARE MANAGEMENT ASSESSMENT 08/27/2023 Natanael Dyson [id number] Natanael Dyson is a 28 year old /White female was admitted on 08/23/[address] She was discharged on 08/24/23 with discharge disposition of HR- Routine Discharge. Admitting Physician: Roldan Walker Discharge Diagnosis: Cerebrovascular accident (CVA), unspecified mechanism [ Pt. Voiced her thoughts about [facility], not pleased with care provided. Plans to not f/u with [facility]. Pt. Inquired about results MY chart issue due to pt. Came in the hospital not alert. Instructed via the AVS it is under the other name Dominick Adamson 08/23/2023 - 08/24/2023 Neurology/Neurological Surgery ([facility] 11B). Pt. Access via the AVS page 4 there. Pt. Has gone under this chart Karis with no results found. Gave HIM contact number for further assistance. No linked episodes TCM Ifs-zhtf-mo-face outreach documentation: Discharge Assessment Chart Assessed: 08/27/23 [...] Provider Department Dept Phone 09/12/2023 9:30 AM [facility] MOBILE MRI 1 (1.5T) [facility] Radiology [facility] Imaging, [facility] [phone] Marlys Odell LVN [facility] 2023-08-26 13:35:01 TRANSITIONAL CARE MANAGEMENT ASSESSMENT 08/26/2023 Natanael Dyson [id number] Natanael Dyson is a 28 year old /White female was admitted on 08/23/23 to [facility], [facility]. She was discharged on 08/24/23 with discharge disposition of HR- Routine Discharge. Admitting Physician: Roldan Walker Discharge Diagnosis: Cerebrovascular accident (CVA), unspecified mechanism [I63.9] No contact. No linked episodes TCM Fhk-uuyi-qb-face outreach documentation: Future Appointments: [facility] 2023-05-19 12:16:00 Pt given printed and [...] with steady gait, in no apparent distress. ROOM DANCER [facility] 2023-05-19 08:50:00 Patient came in with complaints of epigastric pain that radiates to her left shoulder associated with nausea and vomiting since a couple of weeks now. Patient states that she was worked up in [place] ER 2 weeks ago and found nothing wrong, just referred to a GI doctor but she hasn't seen one because she has no insurance. NNE Ruiz RN [facility] 2023-01-16 10:56:45 TRANSITIONAL CARE MANAGEMENT ASSESSMENT 01/16/2023 Natanael Dyson [id number] Natanael Dyson is a 27 year old /White female was admitted on 01/11/[address] She was discharged on 01/15/23 with discharge disposition of HR- Routine Discharge. Admitting Physician: Kun Steele Diagnosis: Postprocedural intraabdominal abscess [T81.43XA] Pt. Verbalized understanding discharge instructions. Plans to f/u with pcp. Linked Episodes Type: Episode: Status: Noted: Resolved: Last update: Updated by: TRANSITION OF CARE tcm Active 01/16/2023 01/16/2023 10:56 AM Marlys Odell LVN Comments: TCM Voi-roca-ty-face outreach documentation: Discharge Assessment Chart Assessed: 01/16/23 [...] with the names or descriptions of any nlye-uxl-gmyidrt or supplements you are currently taking?: Yes [...] time?: No Future Appointments: Marlys Odell LVN [facility] 2023-01-15 18:18:34 Patient is cleared for discharge. Problem: Infection Risk Goal: Absence of infection 01/15/20231817 by Vero Crews RN Outcome: Adequate for discharge 01/15/20231817 by Vero Crews RN Outcome: Adequate for discharge 01/15/2023 1310 by Vero Crews RN Outcome: Progressing as expected Problem: Pain Goal: Control of pain at or below patient's documented comfort goal 01/15/20231817 by Vero Crews, ROSEY Outcome: Adequate for discharge 01/15/20231817 by Vero Crews RN Outcome: Adequate for discharge 01/15/2023 131 by Vero Crews RN Outcome: Progressing as expected Goal: Reduction in pain sensation 01/15/20231817 by Vero Crews RN Outcome: Adequate for discharge 01/15/20231817 by Vero Crews RN Outcome: Adequate for discharge 01/15/2023 1310 by Vero Crews RN Outcome: Progressing as expected Problem: Discharge Planning Goal: Adequate for discharge 01/15/2023 181 by Vero Crews RN Outcome: Adequate for discharge 01/15/20231817 by Vero Crews RN Outcome: Adequate for discharge 01/15/2023 1310 by Vero Crews RN Outcome: Progressing as expected Goal: Effective communication 01/15/20231817 by Vero Crews RN Outcome: Adequate for discharge 01/15/20231817 by Vero Crews RN Outcome: Adequate for discharge 01/15/2023 1310 by Vero Crews RN Outcome: Progressing as expected T [facility] 2023-01-15 15:08:00 Called outpatient pharmacy and spoke to Maggi. Stated pharmacy will bring patient's medications to her room within 45min to an hour. Vero Crews RN [facility] 2023-01-15 13:11:00 Problem: Infection Risk Goal: Absence of infection Outcome: Progressing as expected Problem: Pain Goal: Control of pain at or below patient's documented comfort goal Outcome: Progressing as expected Goal: Reduction in pain sensation Outcome: Progressing as expected Problem: Discharge Planning Goal: Adequate for discharge Outcome: Progressing as expected Goal: Effective communication Outcome: Progressing as expected [facility] 2023-01-15 06:25:22 Problem: Infection Risk Goal: Absence of infection Outcome: Progressing as expected Problem: Pain Goal: Control of pain at or below patient's documented comfort goal Outcome: Progressing as expected Goal: Reduction in pain sensation Outcome: Progressing as expected Problem: Discharge Planning Goal: Adequate for discharge Outcome: Progressing as expected Goal: Effective communication Outcome: Progressing as expected Katy Means RN [facility] 2023-01-14 09:27:52 Problem: Infection Risk Goal: Absence of infection Outcome: Progressing as expected Problem: Pain Goal: Control of pain at or below patient's documented comfort goal Outcome: Progressing as expected Goal: Reduction in pain sensation Outcome: Progressing as expected Problem: Discharge Planning Goal: Adequate for discharge Outcome: Progressing as expected Goal: Effective communication Outcome: Progressing as expected T Charles Win RN [facility] 2023-01-13 22:20:47 Notified MD by page due to double dose of Tylenol being given. Per MD Brito no more Tylenol to be given for tonight. [facility] 2023-01-13 21:55:20 Problem: Infection Risk Goal: Absence of infection Outcome: Progressing as expected Problem: Pain Goal: Control of pain at or below patient's documented comfort goal Outcome: Progressing as expected Goal: Reduction in pain sensation Outcome: Progressing as expected Problem: Discharge Planning Goal: Adequate for discharge Outcome: Progressing as expected Goal: Effective communication Outcome: Progressing as expected [facility] 2023-01-13 08:20:43 Problem: Infection Risk Goal: Absence of infection Outcome: Progressing as expected Problem: Pain Goal: Control of pain at or below patient's documented comfort goal Outcome: Progressing as expected Goal: Reduction in pain sensation Outcome: Progressing as expected Problem: Discharge Planning Goal: Adequate for discharge Outcome: Progressing as expected Goal: Effective communication Outcome: Progressing as expected [facility] 2023-01-12 20:10:08 Problem: Infection Risk Goal: Absence of infection Outcome: Progressing as expected Problem: Pain Goal: Control of pain at or below patient's documented comfort goal Outcome: Progressing as expected Goal: Reduction in pain sensation Outcome: Progressing as expected Problem: Discharge Planning Goal: Adequate for discharge Outcome: Progressing as expected Goal: Effective communication Outcome: Progressing as expected [facility] 2023-01-12 09:28:38 Problem: Infection Risk Goal: Absence of infection Outcome: Progressing as expected Problem: Pain Goal: Control of pain at or below patient's documented comfort goal Outcome: Progressing as expected Goal: Reduction in pain sensation Outcome: Progressing as expected Problem: Discharge Planning Goal: Adequate for discharge Outcome: Progressing as expected Goal: Effective communication Outcome: Progressing as expected [facility] 2023-01-12 05:17:00 Problem: Infection Risk Goal: Absence of infection Outcome: Progressing as expected Problem: Pain Goal: Control of pain at or below patient's documented comfort goal Outcome: Progressing as expected Goal: Reduction in pain sensation Outcome: Progressing as expected Problem: Discharge Planning Goal: Adequate for discharge Outcome: Progressing as expected Goal: Effective communication Outcome: Progressing as expected [facility] 2023-01-12 01:43:06 Report to lisy CURRIE on 9C. Pt awaiting transport [facility] Melvin Villegas RN [facility] 2023-01-12 01:10:30 Attempted report, nurse unavailable, left callback number [facility] 2023-01-12 00:24:49 Surgery at bedside [facility] 2023-01-11 23:08:11 made aware of pt increased pain and nausea [facility] 2023-01-11 22:34:[address], warm blanket given [facility] 2023-01-11 22:18:[address] scan [facility] 2023-01-11 21:30:08 Natanael Dyson is a 27 year old female who presents to ER for cc of RUQ LUQ abdominal pain radiating to RLQ, persistent nausea and diarrhea x 2 weeks. Pt had gallbladder removed and a portion of liver removed 1 mo ago. Pt followed up w her PCP, showing elevated liver enzymes, CT scan showing inflamed liver. Denies vomiting, denies blood in stool. [facility] 2023-01-11 21:03:38 Natanael Dyson is a 27 year old female here today c/o abdominal pain x 2 days. Pt denies N/V but reports diarrhea. Pt reports "9/10" pain at this time. Pt reports pain travels down right side abdomen. Pt is A&Ox4, NAD Noted. RR even/unlabored. 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 Due to the worsening discomfort patient has, for further evaluation at [facility]. Patient states that during her cholecystectomy [...] when she sits up. Patient has discontinued Beeler and anxiety medication due to concern for her liver. She is only used a heating pad for her symptoms with minimal improvement. History provided by: Patient material reclaimer used: No Past Medical History/Immunizations: Past Medical [...] N/A 07/21/2019 Surgeon: Prasanna Vargas MD; Location: [facility] Labor and Delivery OR Location TUBAL LIGATION N/A 07/21/2019 Surgeon: Prasanna Vargas MD; Location: [facility] Labor and Delivery OR [...] 0 - 220 U/L COMP. METABOLIC PANEL (13458) TOTAL BETA HCG ASSAY EXTRA TUBE ORANGE EXTRA TUBE LAV EKG: If EKG completed, see Procedure Note. Orders and Treatments: Orders Placed This Encounter Procedures CT ABDOMEN PELVIS W CONTRAST POCT TEST URINALYSIS LIPASE COMP. METABOLIC PANEL (22592) TOTAL BHCG (QUANTITATIVE) Orders Placed This Encounter [...] mouth every 6 (six) hours as needed. [id number] (FIORICET) 50-300-40 MG PER CAPSULE Take 1 [...] medications on file Follow-up: Electronically signed by: Zehra García DO 01/12/23 0211 Associated attestation - Miguel Ángel Siddiqui DO - 01/12/2023 7:17 AM CDT After discussion with Dr. García, I examined this patient. I agree with resident's note as written. The patient had CT findings concerning for a possible post-op abscess in the Gallbladder fossa, post-recent cholecystectomy in [place]. General surgery was consulted and admitted the patient for further workup and management. [facility] 2022-12-03 08:57:03 Patient has an appointment 12/12/22. Blayne Silva RN 12/03/2022 8:57 AM Blayne Silva RN [facility]
[2024-06-27] MEDS ORDERED: LIDOCAINE 4% PATCH ONE (08:19)
--- NOTE | 2024-06-27 08:49 | ER ---
Nurse's Notes [facility] Name: Natanael Dyson Age: 29 yrs Sex: Female : 1995 Arrival Date: 06/27/2024 Time: 07:32 Bed 6 Private MD: Diagnosis: Sprain of ribs Presentation: 06/27 07:54 Chief complaint: Left lateral chest wall pain that radiates to left arm after hb mechanical fall from standing 6 days ago. Coronavirus screen: At this time, the client does not indicate any symptoms associated with coronavirus-19. Ebola Screen: No symptoms or risks identified at this time. Initial Sepsis Screen: Does the patient meet any 2 criteria? No. Patient's initial sepsis screen is negative. Does the patient have a suspected source of infection? No. Patient's initial sepsis screen is negative. Risk Assessment: Do you want to hurt yourself or someone else? Patient reports no desire to harm self or others. Onset of symptoms was June 21, 2024. 07:54 Method Of Arrival: Ambulatory hb 07:54 Acuity: THIERNO 4 hb Historical: - Allergies: 07:56 Compazine; hb 07:56 Iodine; hb 07:56 Morphine; hb 07:56 NSAIDS NON STEROIDAL ANTI INFLAMMATORY DRUG; hb 07:56 Reglan; hb 07:56 Toradol; hb 07:56 Haldol; hb - PMHx: 07:56 Anxiety; breast cancer; depressive disorder; Kidney stone; nephritis; hb - PSHx: 07:56 Cholecystectomy; Ligation of fallopian tube; hb - Immunization history:: Adult Immunizations up to date. - Infectious Disease History:: Denies. - Social history:: Smoking status: Patient denies any tobacco usage or history of. Screenin:16 [facility] ED Fall Risk Assessment (Adult) History of falling in the last 3 months, ko1 including since admission Yes- single mechanical fall (1 pt) Confusion or Disorientation No (0 pts) Intoxicated or Sedated No (0 pts) Impaired Gait No (0 pts) Mobility Assist Device Used No (0 pt) Altered Elimination No (0 pt) Score/Fall Risk Level 0 - 2 = Low Risk Oriented to surroundings, Maintained a safe environment, Educated pt \T\ family on fall prevention, incl call for assistance when getting out of bed, Assessed \T\ reinforced patient's understanding of fall precautions, Hourly rounding (assess needs \T\ fall precautionary measures) done. Abuse screen: Denies threats or abuse. Denies injuries from another. Nutritional screening: No deficits noted. Tuberculosis screening: No symptoms or risk factors identified. Assessment: 08:16 General: Appears in no apparent distress. Behavior is calm, cooperative, appropriate ko1 for age. Pain: Complains of pain in left lateral anterior chest. Neuro: No deficits noted. Cardiovascular: No deficits noted. Respiratory: No deficits noted. GI: No deficits noted. No signs and/or symptoms were reported involving the gastrointestinal system. : No deficits noted. No signs and/or symptoms were reported regarding the genitourinary system. EENT: No deficits noted. No signs and/or symptoms were reported regarding the EENT system. Derm: No deficits noted. No signs and/or symptoms reported regarding the dermatologic system. Musculoskeletal: No deficits noted. No signs and/or symptoms reported regarding the musculoskeletal system. 08:20 Reassessment: Patient removed monitor, went to restroom and eloped from there, was seen ko1 by staff members walking out the door. Vital Signs: 07:54 BP 122 / 99; Pulse 84; Resp 16; Temp 97.9(O); Pulse Ox 100% on R/A; Weight 47.63 kg; hb Height 5 ft. 1 in. ; Pain 8/10; 08:00 BP 126 / 89; Pulse 78; Resp 15; Pulse Ox 100% ; ko1 07:54 Body Mass Index 19.84 (47.63 kg, 154.94 cm) hb 07:54 Pain Scale: Adult hb ED Course: 07:34 Patient arrived in ED. jj6 07:34 Diaz Arizmendi MD is Attending Physician. ec2 07:47 Jayy Wooten, ROSEY is Primary Nurse. bp 07:56 Triage completed. hb 07:57 Arm band placed on. hb 08:16 Patient has correct armband on for positive identification. Allergy band placed. Bed in ko1 low position. Call light in reach. Side rails up X 1. Provided Education on: xray. Pulse ox on. NIBP on. Door closed. Noise minimized. Lights dimmed. 08:16 No provider procedures requiring assistance completed. Patient did not have IV access ko1 during this emergency room visit. Administered Medications: 08:16 Drug: Lidoderm Topical Patch 5 % (700 mg/patch) 1 patches Topical once; leave on for 12 ko1 hours; cover most painful area; may cut into smaller pieces Route: Topical; Site: affected area; Medication: 08:16 VIS not applicable for this client. ko1 Outcome: 08:44 Eloped from patient exam room, after seeing physician Time discovered patient gone: ko1 June 27, 2024 at 08:20 08:44 Condition: stable 08:48 Discharge ordered by . ec2 08:49 Patient left the ED. ko1 Signatures: Judi Rich, RN RN Jayy Wooten, RN RN Gisela Anguiano jj6 Pam Frausto RN RN ko1 Diaz Arizmendi MD MD ec2
--- NOTE | 2024-06-27 08:49 | EDPHYS ---
Physician Documentation [facility] Name: Natanael Dyson Age: 29 yrs Sex: Female : 1995 Arrival Date: 06/27/2024 Time: 07:32 Bed 6 Private MD: ED Physician Diaz Arizmendi HPI: 06/27 07:58 This 29 yrs old Female presents to ER via Ambulatory with complaints of Fall ec2 Injury. 07:58 Patient arrives today for evaluation of left-sided rib pain. Reports that she had a ec2 fall several days ago. Patient was seen here several days ago, external records showed that she obtained a CT scan of the chest, abdomen, pelvis. Denies any new injuries or falls.. Historical: - Allergies: 07:56 Compazine; hb 07:56 Iodine; hb 07:56 Morphine; hb 07:56 NSAIDS NON STEROIDAL ANTI INFLAMMATORY DRUG; hb 07:56 Reglan; hb 07:56 Toradol; hb 07:56 Haldol; hb - PMHx: 07:56 Anxiety; breast cancer; depressive disorder; Kidney stone; nephritis; hb - PSHx: 07:56 Cholecystectomy; Ligation of fallopian tube; hb - Immunization history:: Adult Immunizations up to date. - Infectious Disease History:: Denies. - Social history:: Smoking status: Patient denies any tobacco usage or history of. ROS: 07:58 Constitutional: as per hpi ec2 Exam: 07:58 Constitutional: GEN: NAD Head: atraumatic Eyes: EOMI Ears: External ears are ec2 normal. CV: regular rate LUNGS: no respiratory distress, lung sounds present in all lung barney, no focal deficits appreciated. ABD: non-distended SKIN: no evidence of rashes MSK: no evidence of trauma, left-sided chest wall TTP without deformities or crepitus appreciated, no ecchymosis noted. Vital Signs: 07:54 BP 122 / 99; Pulse 84; Resp 16; Temp 97.9(O); Pulse Ox 100% on R/A; Weight 47.63 kg; hb Height 5 ft. 1 in. ; Pain 8/10; 08:00 BP 126 / 89; Pulse 78; Resp 15; Pulse Ox 100% ; ko1 07:54 Body Mass Index 19.84 (47.63 kg, 154.94 cm) hb 07:54 Pain Scale: Adult hb MDM: 07:42 Medical Screening Exam initiated ec2 07:58 Data reviewed: vital signs, nurses notes. ED course: Patient arrives today for ec2 evaluation of chest wall pain. Examination is unrevealing. Will obtain chest x-ray and rib series. Suspect contusion. Doubt fracture, additionally considered other processes such as pneumothorax, hemothorax. Patient obtained significant workup several days ago after the injury, do not feel would be indicated at this time to obtain repeat advanced imaging such as CT scan of the chest abdomen pelvis.. 08:47 ED course: Patient left prior to completion of services. I have a lower suspicion for ec2 emergent process given recent imaging and reassuring vital signs.. Administered Medications: 08:16 Drug: Lidoderm Topical Patch 5 % (700 mg/patch) 1 patches Topical once; leave on for 12 ko1 hours; cover most painful area; may cut into smaller pieces Route: Topical; Site: affected area; Disposition Summary: 06/27/24 08:48 Discharge Ordered Notes: Location: Home ec2 Condition: Stable ec2 Diagnosis - Sprain of ribs ec2 Followup: ec2 - With: Private Physician - When: - Reason: Re-evaluation by your physician Forms: - Medication Reconciliation Form ec2 - Antibiotic Education ec2 - Prescription Opioid Use ec2 - Patient Portal Instructions ec2 - Leadership Thank You Letter ec2 Signatures: Dispatcher [employer] Judi Holland, RN ROSEY Pam Frausto RN RN ko1 Diaz Arizmendi MD MD ec2
[2024-06-27 09:06] VITALS: TEMP 97.9; O2SAT 100
[2024-06-27 09:07] VITALS: BP 126/89
== END 2024-06-27 08:49 | disposition home or self-care (01) ==
LOC: ER 07:32
DX: S23.41XA Sprain of ribs, initial encounter (principal)
CPT/HCPCS: 99283; J2003

== ENCOUNTER 2024-07-21 10:04 | Emergency (ER) | payer OTHER ==
--- OUTSIDE RECORDS SUMMARY | 2024-07-21 10:24 | XMS REPORT | Continuity of Care Document ---
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 [facility] methylpredn isolone sod succ (SOLU-MEDRO L) injection 44.375 mg 2023-05 04:15: 00 03-13 05:06 :00 No 1mg/kg 44.375 mg (rounded from 44.5 mg = 1 mg/kg ?44.5 kg), Intravenou s, ONCE, 1 dose, On Sat03/12/24 at 2315, 2 mL [facility] iopamidol (ISOVUE 370-500 mL) injection 80 mL 2023-05 03:16: 00 03-13 03:00 :00 No [id number] 80mL 80 mL, Intravenou s, ONCE, 1 dose, On Sat03/12/24 at 2230, Routine [facility] diphenhydrA MINE (BENADRYL) injection 100 mg 2023-05 03:00: 00 03-13 05:06 :00 No [id number] 100mg 100 mg, Slow IV Push, ONCE, 1 dose, On Sat03/12/24 at 2200, STAT [facility] budesonide (PULMICORT RESPULE) nebulizer solution 1 mg 2023-05 01:00: 00 Yes 1mg 1 mg, Inhalation , BID, First dose on Sat03/12/24 at 2000, Until Discontinu ed, Routine [facility] amitriptyli ne 25 mg tablet 2023-05 00:00: 00 Yes [id number] 25mg Take 1 tablet by mouth at bedtime. [facility] budesonide 0.5 mg/2 mL nebulizer solution 2023-05 00:00: 00 06-06 05:59 :00 No [id number] 1mg Inhale 4 mL in the morning and 4 mL in the evening. Do all this for 84 days. [facility] diphenhydrA MINE 25 mg tablet 2023-05 00:00: 00 03-21 05:59 :00 No [id number] 25mg Take 1 tablet by mouth every 6 (six) hours as needed for Allergies for up to 7 days. [facility] methylPREDN ISolone sod succ (SOLU-MEDRO L (PF)) injection 40 mg 2023-05 23:45: 00 03-13 01:24 :00 No 40mg 40 mg, Intravenou s, ONCE, 1 dose, On Sat03/12/24 at 1845, 1 mL [facility] diphenhydrA MINE (BENADRYL) injection 50 mg 2023-05 23:45: 00 03-13 01:23 :00 No 50mg 50 mg, Intravenou s, ONCE, 1 dose, On Sat03/12/24 at 1845, Routine [facility] methylPREDN ISolone sod succ (SOLU-MEDRO L (PF)) injection 40 mg 2023-05 20:45: 00 03-12 20:53 :00 No 40mg 40 mg, Intravenou s, ONCE, 1 dose, On Sat03/12/24 at 1545, 1 mL [facility] diphenhydrA MINE (BENADRYL) injection 25 mg 2023-05 20:30: 00 03-12 20:58 :00 No 25mg 25 mg, Intravenou s, ONCE, 1 dose, On Sat03/12/24 at 1545, Routine [facility] diphenhydrA MINE (BENADRYL) injection 25 mg 2023-05 16:30: 00 03-12 16:16 :00 No 25mg 25 mg, Intravenou s, ONCE, 1 dose, On Sat03/12/24 at 1130, Routine [facility] diazePAM (VALIUM) injection 2 mg 2023-05 15:45: 00 03-13 13:38 :00 No 2mg 2 mg, Slow IV Push, BID, First dose on Sat03/12/24 at 1045, Until Discontinu ed, Routine [facility] Potassium Bicarb-Citr ic Acid (EFFER-K) effervescen t tablet 40 mEq 2023-05 03:45: 00 03-12 03:18 :00 No 40meq 40 mEq, Oral, ONCE, 1 dose, On Sat03/11/24 at 2245, Routine [facility] amitriptyli ne (ELAVIL) tablet 25 mg 2023-05 02:00: 00 Yes 25mg 25 mg, Oral, QHS, First dose on Sat03/11/24 at 2100, Until Discontinu ed, Routine [facility] budesonide (PULMICORT RESPULE) nebulizer solution 0.25 mg 2023-05 20:30: 00 03-12 15:40 :27 No .25mg 0.25 mg, Inhalation , BID, First dose (after last modificati on) on Sat03/11/24 at 1530, Until Discontinu ed, Routine [facility] morpHINE injection 2 mg 2023-05 18:00: 00 03-11 18:18 :00 No 2mg 2 mg, Slow IV Push, ONCE, 1 dose, On Sat03/11/24 at 1300, Routine [facility] proMETHazin e (PHENERGAN) 12.5 mg in NS 50 mL IV piggyback (CNR) 2023-05 16:08: 36 03-13 06:15 :30 No 12.5mg 12.5 mg, IV Piggyback, at 200 mL/hr Administer over 15 Minutes, Q4HPRN, Starting on Sat03/11/24 at 1108, Until Sat03/13/24 at 0115, [place], Nausea and Vomiting (N/V) [facility] diphenhydrA MINE (BENADRYL) injection 25 mg 2023-05 15:45: 00 03-11 15:14 :00 No 25mg 25 mg, Intravenou s, ONCE, 1 dose, On Sat03/11/24 at 1045, Routine [facility] morphine (2 mg/mL) injection 4 mg 2023-05 13:44: 13 03-11 17:55 :50 No 4mg 4 mg, Slow IV Push, Q4HPRN, Starting on Sat03/11/24 at 0844, Until Sat03/11/24 at 1255, Routine, Pain (scale 7-10) [facility] magnesium sulfate in water 4 gram/50 mL (8 %) IV Piggyback 4 g 2023-05 13:00: 00 03-11 16:09 :00 No 4g 4 g, IV Piggyback, at 25 mL/hr Administer over 120 Minutes, ONCE, 1 dose, On Sat03/11/24 at 0800, Routine [facility] tetracyclin e (ACHROMYCIN ) capsule 500 mg 2023-05 13:00: 00 03-11 16:07 :08 No 500mg 500 mg, Oral, QID, 112 doses, First dose on Sat03/11/24 at 0800, Last dose on Sat04/07/24 at 2000, [place], Reason for Anti-Infec tive: Documented Infection, Documented Infection Site: Abdominal, Duration of Therapy: 14 days [facility] metroNIDAZO LE (FLAGYL) tablet 500 mg 2023-05 13:00: 00 03-11 16:07 :08 No 500mg 500 mg, Oral, QID, First dose on Sat03/11/24 at 0800, Until Discontinu ed, Routine, Reason for Anti-Infec tive: Documented Infection, Documented Infection Site: Abdominal, Duration of Therapy: 14 days [facility] bismuth subsalicyla te (PEPTO BISMOL) chewable tablet 524 mg 2023-05 13:00: 00 03-11 16:07 :08 No 524mg 524 mg, Oral, QID, First dose on Sat03/11/24 at 0800, Until Discontinu ed [facility] lactated ringers IV infusion 1,000 mL 2023-05 08:30: 00 03-11 16:29 :00 No 1000mL at 125 mL/hr, 1,000 mL, IV Infusion, CONTINUOUS , Starting on Sat03/11/24 at 0330, Until Sat03/11/24 at 1129, Routine [facility] trimethoben zamide (TIGAN) injection 100 mg 2023-05 05:12: 20 03-13 16:08 :09 No 100mg 100 mg, Intramuscu lar, Q6HPRN, Starting on Sat03/11/24 at 0012, Until Sat03/13/24 at 1108, Routine, Nausea and Vomiting (N/V), alternate with zofran [facility] ondansetron (ZOFRAN (PF)) injection 4 mg 2023-05 03:42: 41 03-11 16:10 :43 No 4mg 4 mg, Slow IV Push, Q6HPRN, Starting on Sat03/10/24 at 2242, Until Sat03/11/24 at 1110, [place], Nausea and Vomiting (N/V) [facility] pantoprazol e (PROTONIX) injection 40 mg 2023-05 03:30: 00 03-13 16:08 :09 No 40mg 40 mg, Slow IV Push, Q12H, First dose on Sat03/10/24 at 2230, Until Discontinu ed [facility] morpHINE injection 4 mg 2023-05 03:21: 30 03-11 13:44 :25 No 4mg 4 mg, Slow IV Push, Q4HPRN, Starting on Sat03/10/24 at 2221, Until Sat03/11/24 at 0844, Routine, Pain (scale 7-10) [facility] acetaminoph en (TYLENOL) tablet 650 mg 2023-05 03:21: 25 03-13 16:08 :09 No 650mg [facility] morpHINE injection 4 mg 2023-05 02:00: 00 03-11 01:10 :00 No 4mg 4 mg, Slow IV Push, ONCE, 1 dose, On Sat03/10/24 at 2100, STAT [facility] trimethoben zamide (TIGAN) injection 100 mg 2023-05 02:00: 00 03-11 02:05 :00 No 100mg 100 mg, Intramuscu lar, ONCE, 1 dose, On Sat03/10/24 at 2100, Routine [facility] morpHINE injection 4 mg 2023-05 21:30: 00 03-10 22:20 :00 No 4mg 4 mg, Slow IV Push, ONCE, 1 dose, On Sat03/10/24 at 1630, STAT [facility] proMETHazin e (PHENERGAN) 25 mg in NS 50 mL IV piggyback (CNR) 2023-05 21:00: 00 03-10 22:30 :00 No 25mg 25 mg, IV Piggyback, at 200 mL/hr Administer over 15 Minutes, ONCE, 1 dose, On Sat03/10/24 at 1600, [place] [facility] diphenhydrA MINE (BENADRYL) injection 25 mg 2023-05 19:00: 00 03-10 19:12 :00 No 25mg 25 mg, Slow IV Push, ONCE, 1 dose, On Sat03/10/24 at 1400, STAT [facility] ondansetron (ZOFRAN (PF)) injection 4 mg 2023-05 18:30: 00 03-10 18:34 :00 No 4mg 4 mg, Slow IV Push, ONCE, 1 dose, On Sat03/10/24 at 1330, [facility] diphenhydrA MINE:lidoca ine 2% viscous:maa lox 1:1:1 (FIRST-MOUT HWASH BLM) oral suspension 15 mL 2023-05 17:15: 00 03-10 18:34 :00 No 15mL 15 mL, Oral, ONCE, 1 dose, On Sat03/10/24 at 1215, Routine [facility] NaCl 0.9% (NS) bolus infusion 1,500 mL 2023-05 16:30: 00 03-11 00:19 :00 No 1500mL at 999 mL/hr, 1,500 mL, IV Infusion, ONCE, 1 dose, On Sat03/10/24 at 1130, [facility] morpHINE injection 4 mg 2023-05 16:30: 00 03-10 16:33 :00 No 4mg 4 mg, Slow IV Push, ONCE, 1 dose, On Sat03/10/24 at 1130, [facility] ondansetron (ZOFRAN (PF)) injection 4 mg 2023-05 15:30: 00 03-10 15:54 :00 No 4mg 4 mg, Slow IV Push, ONCE, 1 dose, On Sat03/10/24 at 1030, [facility] pantoprazol e (PROTONIX) EC tablet 40 mg 2023-0525 01:00: 00 03-05 22:06 :08 No 40mg 40 mg, Oral, BID, First dose on Sat03/05/24 at 2000, Until Discontinu ed, Routine [facility] bismuth subsalicyla te (PEPTO BISMOL) chewable tablet 524 mg 2023-05 17:00: 00 03-05 22:06 :08 No 524mg 524 mg, Oral, QID, 56 doses, First dose on Sat03/05/24 at 1200, Last dose on Sat03/19/24 at 0800, Routine [facility] tetracyclin e (ACHROMYCIN ) capsule 500 mg 2023-05 13:00: 00 03-05 22:06 :08 No 500mg 500 mg, Oral, QID, 56 doses, First dose on Sat03/05/24 at 0800, Last dose on Sat03/18/24 at 2000, [place], Reason for Anti-Infec tive: Documented Infection, Documented Infection Site: Abdominal, Duration of Therapy: 14 days [facility] metroNIDAZO LE (FLAGYL) tablet 500 mg 2023-05 11:30: 00 03-05 22:06 :08 No 500mg 500 mg, Oral, Q8H, 42 doses, First dose on Sat03/05/24 at 0630, Last dose on Sat03/18/24 at 2200, Routine, Reason for Anti-Infec tive: Documented Infection, Documented Infection Site: Abdominal, Duration of Therapy: 14 days [facility] pantoprazol e (PROTONIX) injection 40 mg 2023-05 01:00: 00 03-05 16:38 :50 No 40mg 40 mg, Slow IV Push, Q12H, First dose on Sat03/04/24 at 2000, Until Discontinu ed [facility] metroNIDAZO LE 500 mg tablet 2023-05 00:00: 00 Yes [id number] 500mg Take 1 tablet by mouth 4 (four) times daily. [facility] tetracyclin e 500 mg capsule 2023-05 00:00: 00 Yes [id number] 500mg Take 1 capsule by mouth 4 (four) times daily. [facility] bismuth subsalicyla te 525 mg Tab 2023-05 00:00: 00 Yes [id number] 525mg Take 525 mg by mouth 4 (four) times daily. [facility] omeprazole 20 mg capsule 2023-05 00:00: 00 Yes [id number] 20mg Take 1 capsule by mouth in the morning and 1 capsule in the evening. [facility] ondansetron 4 mg disintegrat ing tablet 2023-05 00:00: 00 Yes [id number] 4mg Take 1 tablet by mouth every 8 (eight) hours as needed for Nausea and Vomiting (N/V). [facility] enoxaparin (LOVENOX) injection 40 mg 2023-05 22:00: 00 03-05 22:06 :08 No 40mg 40 mg, Subcutaneo us, DAILY, First dose on Sat03/04/24 at 1700, Until Discontinu ed, Routine [facility] hydrOXYzine (ATARAX) tablet 10 mg 2023-05 20:02: 48 03-05 22:06 :08 No 10mg 10 mg, Oral, Q6HPRN, Starting on Sat03/04/24 at 1502, Until Kathie 03/05/24 at 1706, Routine, Anxiety [facility] morphine (2 mg/mL) injection 4 mg 2023-05 19:15: 05 03-05 19:09 :51 No 4mg 4 mg, Slow IV Push, Q6HPRN, Starting on Sat03/04/24 at 1415, Until Kathie 03/05/24 at 1409, Routine, Pain (scale 7-10) [facility] proMETHazin e (PHENERGAN) 12.5 mg in NS 50 mL IV piggyback (CNR) 2023-05 19:13: 41 03-05 22:06 :08 No 12.5mg 12.5 mg, IV Piggyback, at 200 mL/hr Administer over 15 Minutes, Q4HPRN, Starting on Sat03/04/24 at 1413, Until Kathie 03/05/24 at 1706, Routine, N/V unresponsi ve to Ondansetro n [facility] ondansetron (ZOFRAN (PF)) injection 4 mg 2023-05 19:10: 57 03-05 22:06 :08 No 4mg 4 mg, Slow IV Push, Q6HPRN, Starting on Sat03/04/24 at 1410, Until Sat03/05/24 at 1706, Routine, Nausea and Vomiting (N/V) [facility] HYDROcodone -acetaminop hen (NORCO 5) tablet 1 tablet 2023-05 19:10: 38 03-05 22:06 :08 No 1{tbl} 1 tablet, Oral, Q6HPRN, Starting on Sat03/04/24 at 1410, Until Kathie 03/05/24 at 1706, Routine, Pain (scale 4-6) [facility] acetaminoph en (TYLENOL) tablet 650 mg 2023-05 19:10: 34 03-05 22:06 :08 No 650mg [facility] morphine (2 mg/mL) injection 4 mg 2023-05 16:15: 00 03-04 16:19 :00 No 4mg 4 mg, Slow IV Push, ONCE, 1 dose, On Sat03/04/24 at 1115, [place] [facility] ondansetron (ZOFRAN (PF)) injection 4 mg 2023-05 16:15: 00 03-04 16:19 :00 No 4mg 4 mg, Slow IV Push, ONCE, 1 dose, On Sat03/04/24 at 1115, [place] [facility] morphine (2 mg/mL) injection 4 mg 2023-05 13:15: 00 03-04 13:57 :00 No 4mg 4 mg, Slow IV Push, ONCE, 1 dose, On Sat03/04/24 at 0815, STAT [facility] pantoprazol e (PROTONIX) injection 40 mg 2023-05 13:15: 00 03-04 14:04 :00 No 40mg 40 mg, Slow IV Push, ONCE, 1 dose, On Sat03/04/24 at 0815 [facility] NaCl 0.9% (NS) bolus infusion 1,000 mL 2023-05 13:15: 00 03-04 16:51 :00 No 1000mL at 999 mL/hr, 1,000 mL, IV Infusion, ONCE, 1 dose, On Sat03/04/24 at 0815, [place] [facility] ondansetron (ZOFRAN (PF)) injection 4 mg 2023-05 12:15: 00 03-04 13:56 :00 No 4mg 4 mg, Slow IV Push, ONCE, 1 dose, On Sat03/04/24 at 0715, [place] [facility] escitalopra m oxalate 20 mg tablet 2023-05 00:00: 00 Yes 20mg Take 1 tablet by mouth in the morning. [facility] eszopiclone 3 mg tablet 2023-05 00:00: 00 Yes 3mg Take 1 tablet by mouth at bedtime. [facility] bismuth subsalicyla te 525 mg Tab 2023-05 00:00: 00 03-05 00:00 :00 No [id number] 525mg Take 525 mg by mouth 4 (four) times daily for 14 days. [facility] metroNIDAZO LE 500 mg tablet 2023-05 00:00: 00 03-05 00:00 :00 No [id number] 500mg Take 1 tablet by mouth 4 (four) times daily for 14 days. [facility] tetracyclin e 500 mg capsule 2023-05 00:00: 00 03-05 00:00 :00 No [id number] 500mg Take 1 capsule by mouth 4 (four) times daily for 14 days. [facility] omeprazole 20 mg capsule 2023-05 00:00: 00 03-05 00:00 :00 No [id number] 20mg Take 1 capsule by mouth in the morning and 1 capsule in the evening. Do all this for 14 days. [facility] pantoprazol e (PROTONIX) EC tablet 40 mg 2023-05 16:45: 00 02-26 23:59 :22 No 40mg 40 mg, Oral, BID, First dose (after last modificati on) on Kathie 02/27/24 at 1145, Until Discontinu ed, Routine [facility] lactated ringers IV infusion 2023-05 15:19: 00 02-26 15:26 :52 No IV Infusion, CONTINUOUS PRN, Starting on Kathie 02/27/24 at 1019, Until Kathie 02/27/24 at 1026, Routine, Intra-op [facility] simethicone (GAS RELIEF (SIMETHICON E)) 40 mg/0.6 mL drops 2023-05 14:57: 00 02-26 16:34 :28 No PRN, Starting on Kathie 02/27/24 at 0957, Until Kathie 02/27/24 at 1134, Routine, Intra-op [facility] PHENYLephri ne 1000 mcg/10 mL in 0.9% NaCl syringe 2023-05 14:50: 00 02-26 15:26 :52 No Intravenou s, ONCE INTRA PROCEDURE, Starting on Kathie 02/27/24 at 0950, Until Kathie 02/27/24 at 1026, Routine, Intra-op [facility] dexmedeTOMI Dine (PRECEDEX) injection 2023-05 14:27: 00 02-26 15:26 :52 No Intravenou s, ONCE INTRA PROCEDURE, Starting on Kathie 02/27/24 at 0927, Until Kathie 02/27/24 at 1026, Routine, Intra-op [facility] propofoL IV infusion 2023-05 14:26: 00 02-26 15:26 :52 No IV Infusion, ONCE INTRA PROCEDURE, Starting on Kathie 02/27/24 at 0926, Until Kathie 02/27/24 at 1026, Routine, Intra-op [facility] lidocaine 1% (XYLOCAINE) 100 mg/10 mL (1 %) injection 2023-05 14:26: 00 02-26 15:26 :52 No Intravenou s, ONCE INTRA PROCEDURE, Starting on Kathie 02/27/24 at 0926, Until [place]ie 02/27/24 at 1026, Routine, Intra-op [facility] FENTanyl (PF) (SUBLIMAZE) injection 2023-05 14:26: 00 02-26 15:26 :52 No Intravenou s, ONCE INTRA PROCEDURE, Starting on Kathie 02/27/24 at 0926, Until Kathie 02/27/24 at 1026, Routine, Intra-op [facility] midazolam (VERSED) injection 2023-05 14:24: 00 02-26 15:26 :52 No IV Push, ONCE INTRA PROCEDURE, Starting on Kathie 02/27/24 at 0924, Until Kathie 02/27/24 at 1026, Routine, Intra-op [facility] NaCl 0.9% (NS) IV infusion 2023-05 14:22: 00 02-26 15:26 :52 No IV Infusion, CONTINUOUS PRN, Starting on Kathie 02/27/24 at 0922, Until Kathie 02/27/24 at 1026, Routine, Intra-op [facility] sodium phosphates (READY-TO-U SE ENEMA) 19-7 gram/118 mL enema 1 Enema 2023-05 10:00: 00 02-26 10:05 :00 No 1{enema } 1 Enema, Rectal, ONCE, 1 dose, On Sat02/27/24 at 0500, Routine [facility] polyethylen e glycol 3350 powder 17 g 2023-05 01:00: 00 02-26 21:59 :19 No 17g 17 g, Oral, BID, First dose (after last modificati on) on Sat02/26/24 at 2000, Until Discontinu ed, Routine [facility] ondansetron 4 mg disintegrat ing tablet 2023-05 00:00: 00 03-05 00:00 :00 No [id number] 4mg Take 1 tablet by mouth every 8 (eight) hours as needed for Nausea and Vomiting (N/V). [facility] pantoprazol e 40 mg EC tablet 2023-05 00:00: 00 03-05 00:00 :00 No [id number] 40mg Take 1 tablet by mouth in the morning and 1 tablet in the evening. [facility] amitriptyli ne 25 mg tablet 2023-05 00:00: 00 03-04 00:00 :00 No [id number] 25mg Take 1 tablet by mouth at bedtime. [facility] acetaminoph en-codeine 300-30 mg tablet 2023-05 00:00: 00 02-26 00:00 :00 No [id number] 1{tbl} Take 1 tablet by mouth every 4 (four) hours as needed for Pain (scale 7-10) for up to 7 days. Indication s: acute pain [facility] simethicone (GAS RELIEF (SIMETHICON E)) chewable tablet 80 mg 2023-05 23:00: 00 02-26 21:59 :19 No 80mg 80 mg, Oral, PC+HS, First dose on Sat02/26/24 at 1800, Until Discontinu ed, Routine [facility] morphine (2 mg/mL) injection 2 mg 2023-05 20:22: 36 02-26 21:59 :19 No 2mg 2 mg, Slow IV Push, Q4HPRN, Starting on Sat02/26/24 at 1522, Until Kathie 02/27/24 at 1659, Routine, Pain (scale 4-6) [facility] morphine (2 mg/mL) injection 4 mg 2023-05 20:22: 32 02-26 21:59 :19 No 4mg 4 mg, Slow IV Push, Q4HPRN, Starting on Sat02/26/24 at 1522, Until Kathie 02/27/24 at 1659, Routine, Pain (scale 7-10) [facility] LORazepam (ATIVAN) injection 0.5 mg 2023-05 18:39: 21 02-26 21:59 :19 No .5mg 0.5 mg, Slow IV Push, Q6HPRN, Starting on Sat02/26/24 at 1339, Until Kathie 02/27/24 at 1659, Routine, Anxiety [facility] bisacodyL (DULCOLAX) suppository 10 mg 2023-05 18:17: 00 02-25 18:47 :00 No 10mg 10 mg, Rectal, ONCE NOW, 1 dose, On Sat02/26/24 at 1330, Routine [facility] acetaminoph en (OFIRMEV) IV piggyback 1,000 mg 2023-05 15:30: 00 02-25 15:03 :00 No 1000mg 1,000 mg, IV Piggyback, at 400 mL/hr Administer over 15 Minutes, ONCE, 1 dose, On Sat02/26/24 at 1030, Routine, Is the patient strict NPO and unable to tolerate oral medication s? Yes [facility] bisacodyL (DULCOLAX) tablet 5 mg 2023-05 14:30: 00 02-26 21:59 :19 No 5mg 5 mg, Oral, DAILY, First dose on Sat02/26/24 at 0930, Until Discontinu ed, Routine [facility] amitriptyli ne (ELAVIL) tablet 25 mg 2023-05 02:00: 00 02-26 23:59 :22 No 25mg 25 mg, Oral, QHS, First dose on Sat02/25/24 at 2100, Until Discontinu ed, Routine [facility] morphine (2 mg/mL) injection 4 mg 2023-05 18:49: 53 02-25 14:28 :08 No 4mg 4 mg, Slow IV Push, Q4HPRN, Starting on Sat02/25/24 at 1349, Until Sat02/26/24 at 0928, Routine, Pain (scale 7-10) [facility] morphine (2 mg/mL) injection 2 mg 2023-0515 18:49: 15 02-25 14:28 :08 No 2mg 2 mg, Slow IV Push, Q4HPRN, Starting on Sat02/25/24 at 1349, Until Sat02/26/24 at 0928, Routine, Pain (scale 7-10) [facility] gadobenate dimeglumine (MULTIHANCE -10 mL) injection 9.08 mL 2023-05 17:30: 00 02-24 17:30 :00 No [id number] .2mL/kg 9.08 mL (0.2 mL/kg ?45.4 kg), Intravenou s, ONCE, 1 dose, On Sat02/25/24 at 1230, [facility] 1 mg 2023-05 17:00: 00 02-24 16:25 :00 No 1mg 1 mg, Slow IV Push, ONCE, 1 dose, On Sat02/25/24 at 1200, STAT [facility] polyethylen e glycol 3350 powder 17 g 2023-05 16:00: 00 02-25 14:24 :01 No 17g 17 g, Oral, DAILY, First dose on Sat02/25/24 at 1100, Until Discontinu ed, Routine [facility] lactated ringers IV infusion 1,000 mL 2023-05 13:15: 02-26 21:59 :19 No 1000mL at 125 mL/hr, 1,000 mL, IV Infusion, CONTINUOUS , Starting on Sat02/25/24 at 0815, Until Sat02/27/24 at 1659, Routine [facility] potassium chloride in water (KCL) 20 mEq/100 mL IV infusion 20 mEq 2023-05 13:00: 00 02-24 13:30 :00 No 20meq 20 mEq, IV Infusion, at 50 mL/hr Administer over 2 Hours, ONCE, 1 dose, On Sat02/25/24 at 0800, Routine [facility] melatonin (MELATIN) tablet 3 mg 2023-05 02:00: 00 02-26 21:59 :19 No 3mg 3 mg, Oral, QHS, First dose on Sat02/24/24 at 2100, Until Discontinu ed, Routine [facility] lactated ringers IV infusion 500 mL 2023-05 19:30: 00 02-24 09:54 :00 No 500mL at 999 mL/hr, 500 mL, IV Infusion, ONCE, 1 dose, On Sat02/24/24 at 1430, Routine [facility] Lidocaine (LIDOCARE) 4 % patch 1 Patch 2023-05 18:00: 00 02-24 05:15 :00 No 1{patch } 1 Patch, Topical, Administer over 12 Hours, ONCE, 1 dose, On Sat02/24/24 at 1300, Routine [facility] LORazepam (ATIVAN) injection 0.5 mg 2023-05 12:25: 30 02-25 18:39 :43 No .5mg 0.5 mg, Slow IV Push, Q6HPRN, Starting on Sat02/24/24 at 0725, Until Sat02/26/24 at 1339, Routine, Anxiety, Agitation [facility] diphenhydrA MINE (BENADRYL) injection 25 mg 2023-05 01:40: 29 02-23 14:54 :01 No 25mg 25 mg, Intravenou s, Q6HPRN, Starting on Sat02/23/24 at 2040, Until Sat02/24/24 at 0954, Routine, Nausea and Vomiting (N/V) [facility] LORazepam (ATIVAN) injection 0.5 mg 2023-05 01:39: 00 02-23 02:48 :00 No .5mg 0.5 mg, Slow IV Push, ONCE, 1 dose, On Sat02/23/24 at 2045, Routine [facility] diphenhydrA MINE (BENADRYL) injection 25 mg 2023-05 14:19: 13 02-23 01:14 :28 No 25mg 25 mg, Intravenou s, Q6HPRN, Starting on Sat02/23/24 at 0919, Until Sat02/23/24 at 2014, Routine, Nausea and Vomiting (N/V) [facility] ondansetron (ZOFRAN (PF)) injection 4 mg 2023-05 14:18: 38 02-26 21:59 :19 No 4mg 4 mg, Slow IV Push, Q6HPRN, Nausea and Vomiting (N/V), Starting on 02/23/24 at 0918, Doses of ondansetro n 16 mg and above need to be administer ed via IV piggyback. For Dose >=24mg ECG monitoring is advisable. [facility] pantoprazol e (PROTONIX) injection 40 mg 2023-05 11:53: 00 02-25 19:46 :39 No 40mg 40 mg, Slow IV Push, Q24H, First dose (after last modificati on) on 02/23/24 at 0700, Until Discontinu ed [facility] cariprazine (VRAYLAR) 1.5 mg capsule 2023-05 09:24: 25 Yes 1.5mg Take 1 capsule by mouth in the morning. [facility] LORazepam 0.5 mg tablet 2023-05 09:24: 25 Yes .5mg Take 1 tablet by mouth. [facility] diphenhydrA MINE (BENADRYL) injection 25 mg 2023-05 03:57: 18 02-22 14:19 :23 No 25mg 25 mg, Intravenou s, Q4HPRN, Starting on 02/22/24 at 2257, Until 02/23/24 at 0919, Routine, Nausea and Vomiting (N/V) [facility] heparin (porcine) injection 5,000 Units 2023-05 01:00: 00 02-26 21:59 :19 No 5000U 5,000 Units, Subcutaneo us, Q12H, First dose on 02/22/24 at 2000, Until Discontinu ed, Routine [facility] morphine (2 mg/mL) injection 4 mg 2023-05 19:33: 18 02-24 15:57 :38 No 4mg 4 mg, Slow IV Push, Q4HPRN, Starting on 02/22/24 at 1433, Until 02/25/24 at 1057, Routine, Pain (scale 7-10) [facility] proMETHazin e (PHENERGAN) 25 mg in NS 50 mL IV piggyback (CNR) 2023-05 19:33: 05 02-22 14:19 :00 No 25mg 25 mg, IV Piggyback, at 200 mL/hr Administer over 15 Minutes, Q4HPRN, Starting on 02/22/24 at 1433, Until 02/23/24 at 0919, [place], Nausea and Vomiting (N/V) [facility] metoprolol tartrate 50 mg tablet 2023-05 19:26: 59 02-26 00:00 :00 No 50mg Take 1 tablet by mouth in the morning and 1 tablet in the evening. [facility] escitalopra m oxalate (LEXAPRO) 10 mg tablet 2023-05 19:26: 59 02-26 00:00 :00 No 10mg Take 1 tablet by mouth in the morning. [facility] morphine (2 mg/mL) injection 4 mg 2023-05 17:45: 00 02-21 18:20 :00 No 4mg 4 mg, Slow IV Push, ONCE, 1 dose, On 02/22/24 at 1245, STAT [facility] proMETHazin e (PHENERGAN) 25 mg in NS 50 mL IV piggyback (CNR) 2023-05 16:45: 00 02-21 17:33 :00 No 25mg 25 mg, IV Piggyback, at 200 mL/hr Administer over 15 Minutes, ONCE, 1 dose, On 02/22/24 at 1145, [place] [facility] morphine (2 mg/mL) injection 4 mg 2023-05 16:00: 00 02-21 16:06 :00 No 4mg 4 mg, Slow IV Push, ONCE, 1 dose, On 02/22/24 at 1100, STAT [facility] famotidine (PEPCID (PF)) injection 20 mg 2023-05 15:00: 00 02-21 15:35 :00 No 20mg 20 mg, Slow IV Push, ONCE, 1 dose, On 02/22/24 at 1000, [place] [facility] ondansetron (ZOFRAN (PF)) injection 4 mg 2023-05 15:00: 00 02-21 15:34 :00 No 4mg 4 mg, Slow IV Push, ONCE, 1 dose, On 02/22/24 at 1000, [place] [facility] NaCl 0.9% (NS) bolus infusion 1,000 mL 2023-05 15:00: 00 02-21 18:06 :00 No 1000mL at 999 mL/hr, 1,000 mL, IV Infusion, ONCE, 1 dose, On 02/22/24 at 1000, STAT [facility] buPROPion XL 150 mg 24 hr tablet 01-22 00:00: 00 Yes 150mg Take 1 tablet by mouth every morning. [facility] cholestyram ine 4 gram powder 01-20 00:00: 00 Yes MIX AND DRINK 1 SCOOP BY MOUTH DAILY [facility] busPIRone 7.5 mg tablet 01-19 00:00: 00 Yes 7.5mg Take 1 tablet by mouth in the morning and 1 tablet in the evening. [facility] metoprolol tartrate 50 mg tablet 08-25 11:55: 42 Yes 50mg Take 1 tablet by mouth in the morning and 1 tablet in the evening. [facility] escitalopra m oxalate (LEXAPRO) 10 mg tablet 08-25 11:55: 42 Yes 10mg Take 1 tablet by mouth in the morning. [facility] divalproex ER 250 mg 24 hr tablet 08-23 00:00: 00 11-22 04:59 :00 No [id number] 250mg Take 1 tablet by mouth in the morning and 1 tablet in the evening. Do all this for 90 days. [facility] acetaminoph en-codeine 300-30 mg tablet 2024-0 4-13 00:00: 00 08-31 04:59 :00 No [id number] 1{tbl} Take 1 tablet by mouth every 6 (six) hours as needed for Pain (scale 4-6) or Pain (scale 7-10) for up to 7 days. Indication s: acute pain [facility] cefTRIAXone (ROCEPHIN) 1,000 mg in NaCl 0.9% (NS) 100 mL MINI-BAG 05-19 16:45: 00 05-19 17:24 :00 No 1000mg 1,000 mg, IV Piggyback, ONCE, 1 dose, On 05/19/23 at 1045, Administer over 30 Minutes, 100 mL
Reas on for Anti-Infec tive: Documented Infection< br>Documen renata Infection Site: Urine
D uration of Therapy: Other (see Comments) [facility] morpHINE (4 mg/mL) injection 4 mg 05-19 16:45: 00 05-19 16:53 :00 No 4mg 4 mg, Slow IV Push, ONCE, 1 dose, On 05/19/23 at 1045, STAT [facility] NaCl 0.9% (NS) bolus infusion 1,000 mL 05-19 16:00: 00 05-19 17:00 :00 No 1000mL at 999 mL/hr, 1,000 mL, IV Infusion, ONCE, 1 dose, On Sat05/19/23 at 1000, [place] [facility] iopamidol (ISOVUE 370-500 mL) injection 80 mL 05-19 15:50: 00 05-19 16:15 :00 No [id number] 80mL 80 mL, Intravenou s, ONCE, 1 dose, On Sat05/19/23 at 1015, Routine [facility] dicyclomine (BENTYL) tablet 20 mg 05-19 15:45: 00 05-19 16:09 :00 No 20mg 20 mg, Oral, ONCE, 1 dose, On Sat05/19/23 at 0945, [place] [facility] ondansetron (ZOFRAN (PF)) injection 4 mg 05-19 15:15: 00 05-19 15:50 :00 No 4mg 4 mg, Slow IV Push, ONCE, 1 dose, On 05/19/23 at 0915, [place] [facility] maalox:diph enhydrAMINE :lidocaine 2 % viscous 1:1:1 (FIRST-MOUT [facility]) oral suspension 15 mL 05-19 15:15: 00 05-19 15:49 :00 No 15mL 15 mL, Oral, ONCE, 1 dose, On 05/19/23 at 0915, Routine [facility] famotidine (PEPCID (PF)) injection 20 mg 05-19 15:15: 00 05-19 15:51 :00 No 20mg 20 mg, Slow IV Push, ONCE, 1 dose, On 05/19/23 at 0915, [place] [facility] ondansetron 4 mg disintegrat ing tablet 05-19 00:00: 00 02-26 00:00 :00 No [id number] 4mg Take 1 tablet by mouth every 8 (eight) hours as needed for Nausea and Vomiting (N/V). [facility] sucralfate 1 gram tablet 05-19 00:00: 00 06-19 05:59 :00 No [id number] 1g Take 1 tablet by mouth before meals and at bedtime for 30 days. [facility] pantoprazol e 40 mg EC tablet 05-19 00:00: 00 06-19 05:59 :00 No [id number] 40mg Take 1 tablet by mouth in the morning for 30 days. [facility] cefdinir 300 mg capsule 05-19 00:00: 00 05-27 05:59 :00 No [id number] 300mg Take 1 capsule by mouth every 12 (twelve) hours for 7 days. [facility] morpHINE (2 mg/mL) injection 2 mg 01-15 19:15: 00 01-15 18:49 :00 No 2mg 2 mg, Slow IV Push, ONCE, 1 dose, On Sat01/15/23 at 1415, [facility] (ZOFRAN[facility] tablet 4 mg 01-15 18:15: 00 01-15 22:02 :00 No 4mg 4 mg, Oral, ONCE, 1 dose, On Sat01/15/23 at 1315, Routine [facility] ondansetron 4 mg tablet 01-15 00:00: 00 02-26 00:00 :00 No [id number] 4mg Take 1 tablet by mouth every 8 (eight) hours as needed for Nausea and Vomiting (N/V). [facility] HYDROcodone -acetaminop hen 5-325 mg tablet 01-15 00:00: 00 01-23 04:59 :00 No [id number] 1{tbl} Take 1 tablet by mouth every 4 (four) hours as needed for Pain (scale 4-6) for up to 7 days. Indication s: acute pain [facility] morpHINE (2 mg/mL) injection 2 mg 01-14 16:11: 23 01-15 11:49 :59 No 2mg 2 mg, Slow IV Push, Q4HPRN, Starting on Sat01/14/23 at 1111, Until Sat01/15/23 at 0649, Routine, Pain (scale 7-10) [facility] methocarbam oL (ROBAXIN) tablet 500 mg 01-14 13:00: 00 Yes 500mg 500 mg, Oral, QID, First dose on Sat01/14/23 at 0800, Until Discontinu ed, Routine [facility] celecoxib (CELEBREX) capsule 100 mg 01-14 13:00: 00 Yes 100mg 100 mg, Oral, BID MEALS, First dose on Sat01/14/23 at 0800, Until Discontinu ed, Routine [facility] gabap[facility] (NEURONTIN) capsule 300 mg 01-14 01:30: 00 Yes 300mg 300 mg, Oral, TID, First dose on Sat01/13/23 at 2030, Until Discontinu ed, Routine [facility] acetaminoph en (TYLENOL) tablet 1,000 mg 01-14 01:30: 00 Yes 1000mg 1,000 mg, Oral, Q8H, First dose (after last modificati on) on 01/13/23 at 2030, Until Discontinu ed, Routine [facility] scopolamine transdermal (TRANSDERM- SCOP) patch 1.5 mg 01-13 00:30: 00 Yes 1.5mg 1.5 mg, Topical, Administer over 72 Hours, Q72H, First dose on 01/12/23 at 1930, Until Discontinu ed, Routine [facility] enoxaparin (LOVENOX) injection 40 mg 01-12 22:00: 00 Yes 40mg 40 mg, Subcutaneo us, DAILY, First dose on 01/12/23 at 1700, Until Discontinu ed, Routine [facility] FENTanyl PF (SUBLIMAZE (PF)) injection 100 mcg 01-12 20:30: 00 01-12 20:30 :00 No [id number] 100ug 100 mcg, Slow IV Push, ONCE, 1 dose, On 01/12/23 at 1530, Routine [facility] proMETHazin e (PHENERGAN) 25 mg in NS 50 mL IV piggyback (CNR) 01-12 17:11: 31 01-15 14:12 :44 No 25mg 25 mg, IV Piggyback, at 200 mL/hr Administer over 15 Minutes, Q4HPRN, Starting on 01/12/23 at 1211, Until 01/15/23 at 0912, Routine, Nausea and Vomiting (N/V) [facility] piperacilli n-tazobacta m (ZOSYN) 3.375 g in [...] Abdominal< br>Duratio n of Therapy: 7 days [facility] pantoprazol e (PROTONIX) EC tablet 40 mg 01-12 14:00: 00 Yes 40mg 40 mg, Oral, DAILY, First dose on Sat01/12/23 at 0900, Until Discontinu ed, Routine [facility] KCL (KLOR-CON M20) tablet 40 mEq 01-12 09:30: 00 01-12 09:25 :00 No 40meq 40 mEq, Oral, ONCE, 1 dose, On Sat01/12/23 at 0430, Routine [facility] diphenhydrA MINE (BENADRYL) tablet 25 mg 01-12 08:31: 43 Yes 25mg 25 mg, Oral, QHSPRN, Starting on Sat01/12/23 at 0331, Until Discontinu ed, Routine, Itching, Sleep [facility] lactated ringers IV infusion 1,000 mL 01-12 08:15: 00 01-15 11:48 :29 No 1000mL at 50 mL/hr, 1,000 mL, IV Infusion, CONTINUOUS , Starting on Sat01/12/23 at 0315, Until Sat01/15/23 at 0648, Routine [facility] piperacilli n-tazobacta m (ZOSYN) 3.375 g in NaCl 0.9% (NS) 100 mL MINI-BAG 01-12 06:45: 00 01-12 08:43 :00 No 3.375g 3.375 g, IV Piggyback, ONCE, 1 dose, On 01/12/23 at 0145, Administer over 30 Minutes, 100 mL
Reas on for Anti-Infec tive: Documented Infection< br>Documen renata Infection Site: Abdominal< br>Duratio n of Therapy: 7 days [facility] lactated ringers IV infusion 1,000 mL 01-12 06:00: 00 01-12 08:13 :38 No 1000mL at 100 mL/hr, 1,000 mL, IV Infusion, CONTINUOUS , Starting on 01/12/23 at 0100, Until 01/12/23 at 0313, Routine [facility] morpHINE (4 mg/mL) injection 4 mg 01-12 05:49: 22 01-14 05:48 :22 No 4mg 4 mg, Slow IV Push, Q4HPRN, Starting on 01/12/23 at 0049, Until 01/14/23 at 0048, Routine, Pain (scale 7-10) [facility] HYDROcodone -acetaminop hen (NORCO 5) 5-325 mg tablet 1 tablet 01-12 05:49: 18 Yes 1{tbl} 1 tablet, Oral, Q4HPRN, Starting on 01/12/23 at 0049, Until Discontinu ed, Routine, Pain (scale 4-6) [facility] ondansetron (ZOFRAN (PF)) injection 4 mg 01-12 05:49: 11 01-15 17:31 :12 No 4mg 4 mg, Slow IV Push, Q6HPRN, Starting on 01/12/23 at 0049, Until Sat01/15/23 at 1231, Routine, Nausea and Vomiting (N/V) [facility] ondansetron (ZOFRAN (PF)) injection 4 mg 01-12 04:45: 00 01-12 04:45 :00 No 4mg 4 mg, Slow IV Push, ONCE, 1 dose, On Sat01/11/23 at 2345, [place] [facility] morpHINE (4 mg/mL) injection 4 mg 01-12 04:45: 00 01-12 04:45 :00 No 4mg 4 mg, Slow IV Push, ONCE, 1 dose, On Sat01/11/23 at 2345, STAT [facility] proMETHazin e (PHENERGAN) 25 mg in NS 50 mL IV piggyback (CNR) 01-12 04:45: 00 01-12 06:00 :00 No 25mg 25 mg, IV Piggyback, at 200 mL/hr Administer over 15 Minutes, ONCE, 1 dose, On Sat01/11/23 at 2345, [facility] iopamidol (ISOVUE 370-500 mL) injection 80 mL 01-12 03:33: 00 01-12 03:25 :00 No [id number] 80mL 80 mL, Intravenou s, ONCE, 1 dose, On Sat01/11/23 at 2245, Routine [facility] maalox:diph enhydrAMINE :lidocaine 2 % viscous 1:1:1 (FIRST-[facility]OUT [facility]) oral suspension 15 mL 01-12 03:30: 00 01-12 03:07 :00 No 15mL 15 mL, Oral, ONCE, 1 dose, On Sat01/11/23 at 2230, [facility] morpHINE (4 mg/mL) injection 4 mg 01-12 03:30: 00 01-12 03:05 :00 No 4mg 4 mg, Slow IV Push, ONCE, 1 dose, On Sat01/11/23 at 2230, [facility] NaCl 0.9% (NS) bolus infusion 1,000 mL 01-12 03:30: 00 01-12 03:04 :00 No 1000mL at 999 mL/hr, 1,000 mL, IV Infusion, ONCE, 1 dose, On Sat01/11/23 at 2230, [facility] ondansetron (ZOFRAN (PF)) injection 4 mg 01-12 03:00: 00 01-12 03:05 :00 No 4mg 4 mg, Slow IV Push, ONCE, 1 dose, On Sat01/11/23 at 2200, [facility] ibuprofen (IBU) tablet 600 mg 11-21 22:15: 00 11-21 21:44 :00 No 600mg 600 mg, Oral, ONCE, 1 dose, On Sat11/21/22 at 1715, [place] [facility] butalbital- acetaminoph en-caff (ESGIC) 50-325-40 mg tablet 1 tablet 11-21 21:30: 00 11-21 21:39 :00 No 1{tbl} 1 tablet, Oral, ONCE, 1 dose, On Sat11/21/22 at 1630, [place] [facility] ciprofloxac in HCl 500 mg tablet 11-11 00:00: 00 02-26 00:00 :00 No TAKE 1 TABLET BY MOUTH EVERY 12 HOURS FOR 7 DAYS [facility] methocarbam oL 750 mg tablet 11-07 00:00: 00 Yes 750mg Take 1 tablet by mouth 2 (two) times daily as needed. [facility] methocarbam oL 750 mg tablet 11-07 00:00: 00 02-26 00:00 :00 No 1{tbl} Take 1 tablet by mouth 2 (two) times daily as needed. [facility] baclofen 10 mg tablet 10-27 00:00: 00 Yes 10mg Take 1 tablet by mouth every 6 (six) hours as needed. [facility] baclofen 10 mg tablet 10-27 00:00: 00 02-26 00:00 :00 No 1{tbl} Take 1 tablet by mouth every 6 (six) hours as needed. [facility] tiZANidine 4 mg tablet 10-24 00:00: 00 Yes 4mg Take 1 tablet by mouth every 6 (six) hours as needed. [facility] tiZANidine 4 mg tablet 10-24 00:00: 00 02-26 00:00 :00 No 1{tbl} Take 1 tablet by mouth every 6 (six) hours as needed. [facility] traZODone 50 mg tablet 10-22 00:00: 00 Yes 50mg Take 1 tablet by mouth at bedtime. [facility] traZODone 50 mg tablet 2023-0 6-12 00:00: 00 02-26 00:00 :00 No 1{tbl} Take 1 tablet by mouth at bedtime. [facility] hydrOXYzine 50 mg tablet 10-02 00:00: 00 Yes 50mg Take 1 tablet by mouth every 6 (six) hours as needed. [facility] hydrOXYzine 50 mg tablet 10-02 00:00: 00 02-26 00:00 :00 No 1{tbl} Take 1 tablet by mouth every 6 (six) hours as needed. [facility] mirtazapine 15 mg tablet 12 00:00: 00 02-26 00:00 :00 No 15mg Take 1 tablet by mouth at bedtime. [facility] meloxicam 15 mg tablet 09 00:00: 00 Yes 15mg Take 1 tablet by mouth in the morning. [facility] meloxicam 15 mg tablet 09-18 00:00: 00 02-26 00:00 :00 No 1{tbl} Take 1 tablet by mouth in the morning. [facility] verapamil SR 120 mg ER tablet 08 00:00: 00 Yes 120mg Take 1 tablet by mouth in the morning. [facility] verapamil SR 120 mg ER tablet 08 00:00: 00 02-26 00:00 :00 No 1{tbl} Take 1 tablet by mouth in the morning. [facility] OLANZapine 10 mg tablet 09-06 00:00: 00 02-26 00:00 :00 No 10mg Take 1 tablet by mouth in the morning. [facility] cloNIDine 0.1 mg tablet 09-06 00:00: 00 02-26 00:00 :00 No TAKE 1-2 TABLETS BY MOUTH AT BEDTIME NEEDED FOR SLEEP AND ANXIETY [facility] NaCl 0.9% (NS) bolus infusion 1,000 mL 09-05 18:15: 00 09-05 18:08 :00 No 1000mL at 999 mL/hr, 1,000 mL, IV Infusion, ONCE, 1 dose, On Sat09/05/22 at 1315, STAT [facility] acetaminoph en (TYLENOL) tablet 650 mg 09-05 17:30: 00 09-05 17:24 :00 No 650mg 650 mg, Oral, ONCE, 1 dose, On Sat09/05/22 at 1230, [place] [facility] ondansetron (ZOFRAN (PF)) injection 4 mg 09-05 17:15: 00 09-05 17:23 :00 No 4mg 4 mg, Slow IV Push, ONCE, 1 dose, On Sat09/05/22 at 1215, [facility] magnesium sulfate in water 2 gram/50 mL (4 %) infusion 2 g 09-05 16:15: 00 09-05 16:10 :00 No 2g 2 g, IV Piggyback, Administer over 30 Minutes, ONCE, 1 dose, On Sat09/05/22 at 1115, Routine [facility] diphenhydrA MINE (BENADRYL) injection 25 mg 09-05 16:00: 00 09-05 16:01 :00 No 25mg 25 mg, Slow IV Push, ONCE, 1 dose, On Sat09/05/22 at 1100, STAT [facility] ketorolac (TORADOL) injection 30 mg 09-05 15:30: 00 09-05 14:38 :00 No 30mg 30 mg, Slow IV Push, ONCE, 1 dose, On Sat09/05/22 at 1030, Routine [facility] NaCl 0.9% (NS) bolus infusion 1,000 mL 09-05 15:00: 00 09-05 17:12 :00 No 1000mL at 999 mL/hr, 1,000 mL, IV Infusion, ONCE, 1 dose, On Sat09/05/22 at 1000, STAT [facility] methylpredn isolone sod succ (SOLU-MEDRO L) injection 125 mg 09-05 14:45: 00 09-05 14:35 :00 No 125mg 125 mg, Intravenou s, ONCE, 1 dose, On Sat09/05/22 at 0945, 2 mL [facility] butalbital- acetaminoph en-caff (ESGIC) 50-325-40 mg tablet 1 tablet 09-05 14:00: 00 09-05 14:34 :00 No 1{tbl} 1 tablet, Oral, ONCE, 1 dose, On Sat09/05/22 at 0900, [place] [facility] diphenhydrA MINE (BENADRYL) injection 25 mg 09-05 14:00: 00 09-05 14:39 :00 No 25mg 25 mg, Slow IV Push, ONCE, 1 dose, On Sat09/05/22 at 0900, STAT [facility] proMETHazin e (PHENERGAN) 12.5 mg in NaCl 0.9% (NS) 50 mL IV piggyback 09-05 14:00: 00 09-05 14:40 :00 No 12.5mg 12.5 mg, IV Piggyback, ONCE, 1 dose, On Sat09/05/22 at 0900, [facility] carvediloL 25 mg tablet 09-05 00:00: 00 02-26 00:00 :00 No [id number] 25mg Take 1 tablet by mouth in the morning and 1 tablet in the evening. Take with meals. [facility] losartan 50 mg tablet 09-05 00:00: 00 02-26 00:00 :00 No [id number] 50mg Take 1 tablet by mouth in the morning and 1 tablet in the evening. [facility] ibuprofen 800 mg tablet 08-05 00:00: 00 02-26 00:00 :00 No 800mg Take 1 tablet by mouth 3 (three) times daily as needed. [facility] cyclobenzap rine 10 mg tablet 08-05 00:00: 00 02-26 00:00 :00 No 10mg Take 1 tablet by mouth 3 (three) times daily as needed. [facility] maalox:diph enhydrAMINE :lidocaine 2 % viscous 1:1:1 ([facility]) oral suspension 15 mL 08-01 00:45: 00 08-01 00:44 :00 No 15mL 15 mL, Oral, ONCE, 1 dose, On Sat07/31/22 at 1945, [place] [facility] ketorolac (TORADOL) injection 15 mg 08-01 00:15: 00 08-01 00:44 :00 No 15mg 15 mg, Slow IV Push, ONCE, 1 dose, On Sat07/31/22 at 191, Routine [facility] ondansetron (ZOFRAN (PF)) injection 4 mg 08-01 00:15: 00 08-01 00:46 :00 No 4mg 4 mg, Slow IV Push, ONCE, 1 dose, On Sat07/31/22 at 1914, [place] [facility] famotidine (PEPCID (PF)) injection 20 mg 08-01 00:15: 00 08-01 00:46 :00 No 20mg 20 mg, Slow IV Push, ONCE, 1 dose, On Sat07/31/22 at 1914, [place] [facility] ondansetron 4 mg disintegrat ing tablet 07-31 00:00: 00 05-19 00:00 :00 No [id number] 4mg Take 1 tablet by mouth every 8 (eight) hours as needed for Nausea and Vomiting (N/V). [facility] sucralfate 1 gram tablet 07-31 00:00: 00 05-19 00:00 :00 No [id number] 1g Take 1 tablet by mouth before meals and at bedtime. [facility] pantoprazol e 40 mg EC tablet 07-31 00:00: 00 08-15 04:59 :00 No [id number] 40mg Take 1 tablet by mouth in the morning for 14 days. [facility] tamsulosin 0.4 mg 24 hr capsule 3-15 00:00: 00 Yes .4mg Take 1 capsule by mouth in the morning. [facility] tamsulosin 0.4 mg 24 hr capsule 3-15 00:00: 00 02-26 00:00 :00 No 1{capsu le} Take 1 capsule by mouth in the morning. [facility] traMADoL 50 mg tablet 3-13 00:00: 00 02-26 00:00 :00 No 50mg Take 1 tablet by mouth. [facility] ibuprofen 600 mg tablet 3-05 00:00: 00 07-31 00:00 :00 No [id number] 600mg Take 1 tablet by mouth every 6 (six) hours as needed for Pain (scale 4-6). [facility] citalopram 10 mg tablet 2-17 00:00: 00 Yes 10mg Take 1 tablet by mouth in the morning. [facility] citalopram 10 mg tablet 2-17 00:00: 00 02-26 00:00 :00 No 1{tbl} Take 1 tablet by mouth in the morning. [facility] QUEtiapine 400 mg tablet 2-17 00:00: 00 02-26 00:00 :00 No [facility] gabapentin 600 mg tablet 2-17 00:00: 00 02-26 00:00 :00 No [facility] methylPREDN ISolone (MEDROL, ANABELA,) 4 mg tablets 2-11 00:00: 00 09-24 00:00 :00 No [id number] Take by mouth SEE-INSTRU CTIONS. follow package directions [facility] bromphenira mine-pseudo ephedrine-D M (BROMFED DM) 2-30-10 mg/5 mL syrup 2-11 00:00: 00 07-04 05:59 :00 No [id number] 5mL Take 5 mL by mouth 4 (four) times daily as needed for Cold symptoms for up to 10 days. [facility] methocarbam oL 750 mg tablet 06-23 00:00: 00 07-01 05:59 :00 No [id number] 750mg Take 1 tablet by mouth 4 (four) times daily for 7 days. [facility] magnesium sulfate in water 2 gram/50 mL (4 %) infusion 2 g 2021-05 21:00: 00 05-05 21:15 :00 No 2g 2 g, IV Piggyback, Administer over 15 Minutes, ONCE, 1 dose, On 05/05/22 at 1500, [facility] butalbital- acetaminoph en-caff (ESGIC) 50-325-40 mg tablet 1 tablet 2021-05 20:15: 00 05-05 20:56 :00 No 1{tbl} 1 tablet, Oral, ONCE, 1 dose, [facility]os [facility] 10 mg 2021-05 20:15: 00 05-05 21:00 :00 No 10mg 10 mg, Slow IV Push, ONCE, 1 dose, On 05/05/22 at 1415, 1 mL [facility] NaCl 0.9% (NS) bolus infusion 1,000 mL 2021-05 20:00: 00 05-05 21:45 :00 No 1000mL at 999 mL/hr, 1,000 mL, IV Infusion, ONCE, 1 dose, [facility] 05[facility]05[facility]22 [facility] 1400[facility] (BENADRYL) injection 25 mg 2021-05 19:15: 00 05-05 19:42 :00 No 25mg 25 mg, Slow IV Push, ONCE, 1 dose, On 05/05/22 at 1315, STAT [facility] ondansetron (ZOFRAN (PF)) injection 4 mg 2021-05 19:15: 00 05-05 19:45 :00 No 4mg 4 mg, Slow IV Push, ONCE, 1 dose, On 05/05/22 at 1315, [place] [facility] ketorolac (TORADOL) injection 30 mg 2021-05 19:15: 00 05-05 19:44 :00 No 30mg 30 mg, Slow IV Push, ONCE, 1 dose, On 05/05/22 at 1315, Routine [facility] butalbital- acetaminoph en-caff 50-325-40 mg tablet 2021-05 00:00: 00 09-24 00:00 :00 No [id number] 1{tbl} Take 1 tablet by mouth every 4 (four) hours as needed for Pain (scale 7-10). [facility] HYDROcodone -acetaminop hen (NORCO) 10-325 mg tablet 1 tablet 2021-05 16:30: 00 04-26 15:23 :00 No 1{tbl} 1 tablet, Oral, ONCE, 1 dose, On Kathie 04/26/22 at 1030, Routine [facility] diphenhydrA MINE (BENADRYL) tablet 25 mg 2021-05 15:45: 00 04-26 15:53 :00 No 25mg 25 mg, Oral, ONCE, 1 dose, On Kathie 04/26/22 at 0945, [place] [facility] NaCl 0.9% (NS) bolus infusion 1,000 mL 2021-05 15:45: 00 04-26 15:55 :00 No 1000mL at 999 mL/hr, 1,000 mL, IV Piggyback, ONCE, 1 dose, On Kathie 04/26/22 at 0945, STAT [facility] ondansetron (ZOFRAN (PF)) injection 4 mg 2021-05 14:45: 00 04-26 14:52 :00 No 4mg 4 mg, Slow IV Push, ONCE, 1 dose, On Kathie 04/26/22 at 0845, Routine [facility] cephALEXin (KEFLEX) 500 mg capsule 2022-1 2-15 00:00: 00 05-04 05:59 :00 No [id number] 500mg Take 1 capsule by mouth in the morning and 1 capsule at noon and 1 capsule in the evening. Do all this for 7 days. [facility] ondansetron (ZOFRAN) 4 mg tablet 2021-05 00:00: 00 07-31 00:00 :00 No 4mg Take 1 tablet by mouth every 8 (eight) hours as needed for Nausea and Vomiting (N/V). [facility] galcanezuma b-gnlm prefilled (EMGALITY) subcutaneou s injection 2021-05 00:00: 00 02-26 00:00 :00 No [id number] 120mg inject 120 mg under the skin once every month. [facility] methocarbam oL (ROBAXIN) injection 1,000 mg 2021-05 04:00: 00 Yes 1000mg 1,000 mg, Intravenou s, Q8H, First dose on 04/07/22 at 2200, Until Discontinu ed, Routine [facility] ketorolac (TORADOL) injection 30 mg 2021-05 00:45: 00 04-07 23:45 :00 No 30mg 30 mg, Slow IV Push, ONCE, 1 dose, On 04/07/22 at 1845, Routine [facility] HYDROcodone -acetaminop hen (NORCO) 10-325 mg tablet 1 tablet 2021-05 00:30: 00 04-07 23:45 :00 No 1{tbl} 1 tablet, Oral, ONCE NOW, 1 dose, On 04/07/22 at 1830, Routine [facility] diphenhydrA MINE (BENADRYL) injection 12.5 mg 2021-05 23:45: 00 04-07 23:46 :00 No 12.5mg 12.5 mg, Slow IV Push, ONCE, 1 dose, On 04/07/22 at 1745, STAT [facility] butorphanol (STADOL) injection 1 mg 2021-05 23:15: 00 04-07 22:48 :00 No 1mg 1 mg, IV Push, ONCE, 1 dose, On 04/07/22 at 1715, Routine [facility] NaCl 0.9% (NS) bolus infusion 1,000 mL 2021-05 23:15: 00 04-07 23:49 :00 No 1000mL at 999 mL/hr, 1,000 mL, IV Infusion, ONCE, 1 dose, On 04/07/22 at 1715, [place] [facility] ketorolac (TORADOL) injection 15 mg 2021-05 19:30: 00 03-24 18:45 :00 No 15mg 15 mg, Slow IV Push, ONCE, 1 dose, On 03/24/22 at 1330, Routine [facility] butorphanol (STADOL) injection 1 mg 2021-05 18:00: 00 03-24 17:26 :00 No 1mg 1 mg, Intravenou s, ONCE, 1 dose, On 03/24/22 at 1200, Routine [facility] proMETHazin e (PHENERGAN) 25 mg in NaCl 0.9% (NS) 50 mL IV piggyback 2021-05 18:00: 00 03-24 18:13 :00 No 25mg 25 mg, IV Piggyback, ONCE, 1 dose, On 03/24/22 at 1200, [place] [facility] butorphanol (STADOL) injection 1 mg 2021-05 17:15: 00 03-24 16:26 :00 No 1mg 1 mg, IV Push, ONCE, 1 dose, On 03/24/22 at 1115, Routine [facility] diphenhydrA MINE (BENADRYL) injection 25 mg 2021-05 15:30: 00 03-24 15:40 :00 No 25mg 25 mg, Slow IV Push, ONCE, 1 dose, On 03/24/22 at 0930, STAT [facility] ondansetron (ZOFRAN (PF)) injection 4 mg 2021-05 15:30: 00 03-24 14:25 :00 No 4mg 4 mg, Slow IV Push, ONCE, 1 dose, On 03/24/22 at 0930, [facility] NaCl 0.9% (NS) IV infusion 1,000 mL 2021-05 15:15: 00 03-24 17:25 :00 No 1000mL at 999 mL/hr, Intravenou s, ONCE, 1 dose, [facility] 2 gram/50 mL (4 %) infusion 2 g 2021-05 15:00: 00 03-24 14:47 :00 No 2g 2 g, IV Piggyback, Administer over 20 Minutes, ONCE, 1 dose, On 03/24/22 at 0900, Routine [facility] dexamethaso ne sod phos PF injection 6 mg 2021-05 14:15: 00 03-24 14:14 :00 No 6mg 6 mg, Slow IV Push, ONCE, 1 dose, On 03/24/22 at 0815, 1 mL [facility] diphenhydrA MINE (BENADRYL) injection 25 mg 2021-05 14:15: 00 03-24 14:16 :00 No 25mg 25 mg, Slow IV Push, ONCE, 1 dose, On 03/24/22 at 0815, STAT [facility] ALBUTEROL INHALE 2021-05 07:58: 13 03-24 00:00 :00 No [facility] rizatriptan 10 mg tablet 2021-05 00:00: 00 02-26 00:00 :00 No [id number] 10mg Take 1 tablet by mouth as needed for Migraine. May repeat in 2 hours if needed [facility] Butalbital- Acetaminoph en-Caff (FIORICET) 50-300-40 mg per capsule 2021-05 00:00: 00 02-26 00:00 :00 No [id number] 1{capsu le} Take 1 capsule by mouth every 6 (six) hours as needed for Other (headache) . [facility] magnesium oxide 200 mg magnesium Tab 2021-05 00:00: 00 04-07 00:00 :00 No [id number] 200mg Take 200 mg by mouth 2 (two) times daily. Indication s: headache [facility] SUMAtriptan 50 mg tablet 2021-05 00:00: 00 02-26 00:00 :00 No 50mg Take 1 tablet by mouth as needed for Migraine. Take one tablet at onset of migraine, may take another tablet 2 hours after initial dose if no relief with first dose. DO NOT EXCEED 100mg in a 24 hour period. [facility] FENTanyl PF (SUBLIMAZE (PF)) injection 50 mcg 2021-05 15:30: 00 03-15 14:56 :00 No 50ug 50 mcg, Slow IV Push, ONCE, 1 dose, On Kathie 03/15/22 at 1030, Routine [facility] proMETHazin e (PHENERGAN) tablet 25 mg 2021-05 14:45: 00 03-15 14:55 :00 No 25mg 25 mg, Oral, ONCE, 1 dose, On Kathie 03/15/22 at 0945, [place] [facility] FENTanyl PF (SUBLIMAZE (PF)) injection 50 mcg 2021-05 14:45: 00 03-15 13:58 :00 No 50ug 50 mcg, Slow IV Push, ONCE, 1 dose, On Kathie 03/15/22 at 0945, Routine [facility] ondansetron (ZOFRAN (PF)) injection 4 mg 2021-05 14:00: 00 03-15 13:58 :00 No 4mg 4 mg, Slow IV Push, ONCE, 1 dose, On Kathie 03/15/22 at 0900, [place] [facility] carvediloL 25 mg tablet 2021-05 00:00: 00 09-05 00:00 :00 No [id number] 25mg Take 1 tablet by mouth in the morning and 1 tablet in the evening. Take with meals. [facility] ondansetron 4 mg disintegrat ing tablet 2021-05 00:00: 04-07 00:00 :00 No [id number] 4mg Take 1 tablet by mouth every 8 (eight) hours as needed for Nausea and Vomiting (N/V). [facility] ketorolac 10 mg tablet 2021-05 00:00: 04-07 00:00 :00 No [id number] 10mg Take 1 tablet by mouth every 6 (six) hours as needed for Pain (scale 7-10). [facility] proMETHazin e 25 mg tablet 2021-05 00:00: 00 04-07 00:00 :00 No [id number] 25mg Take 1 tablet by mouth every 6 (six) hours as needed for N/V unresponsi ve to Ondansetro n. [facility] cephALEXin 500 mg capsule 2021-05 00:00: 00 03-19 05:59 :00 No [id number] 500mg Take 1 capsule by mouth 4 (four) times daily for 3 days. [facility] predniSONE 20 mg tablet 2021-05 00:00: 00 03-15 04:59 :00 No [id number] 20mg Take 1 tablet by mouth in the morning for 2 days. [facility] methocarbam oL (ROBAXIN) tablet 500 mg 2021-05 16:45: 00 03-11 17:08 :00 No 500mg 500 mg, Oral, ONCE, 1 dose, On 03/11/22 at 1200, [place] [facility] dexamethaso ne sod phos PF injection 10 mg 2021-05 16:00: 00 03-11 16:00 :00 No 10mg 10 mg, Slow IV Push, ONCE, 1 dose, On 03/11/22 at 1100, 1 mL [facility] diphenhydrA MINE (BENADRYL) injection 25 mg 2021-05 15:46: 00 03-11 16:00 :00 No 25mg 25 mg, Slow IV Push, ONCE, 1 dose, On 03/11/22 at 1100, STAT [facility] NaCl 0.9% (NS) IV infusion 1,000 mL 2021-05 15:45: 00 03-11 16:04 :00 No 1000mL at 999 mL/hr, Intravenou s, ONCE, 1 dose, On 03/11/22 at 1045, Routine [facility] butalbital- acetaminoph en-caff (ESGIC) 50-325-40 mg tablet 1 tablet 2021-05 15:00: 00 03-11 15:05 :00 No 1{tbl} 1 tablet, Oral, ONCE, 1 dose, On 03/11/22 at 1015, [place] [facility] ketorolac (TORADOL) injection 15 mg 2021-05 14:45: 00 03-11 15:05 :00 No 15mg 15 mg, Slow IV Push, ONCE, 1 dose, [facility] (PHENERGAN) 12.5 mg in NaCl 0.9% (NS) 50 mL IV piggyback 2021-05 14:45: 00 03-11 15:04 :00 No 12.5mg 12.5 mg, IV Piggyback, ONCE, 1 dose, On 03/11/22 at 0945, [facility] proMETHazin e 25 mg tablet 2021-05 00:00: 00 07-31 00:00 :00 No [id number] 25mg Take 1 tablet by mouth every 6 (six) hours as needed for Nausea and Vomiting (N/V). [facility] methocarbam oL 500 mg tablet 2021-05 00:00: 00 04-07 00:00 :00 No [id number] 500mg Take 1 tablet by mouth 3 (three) times daily as needed for Pain (scale 7-10). [facility] topiramate 25 mg tablet 2021-05 0 00:00: 00 02-26 00:00 :00 No [id number] 100mg Take 4 tablets by mouth in the morning. [facility] diphenhydrA MINE 25 mg capsule 2021-0518 09:39: 59 02-27 00:00 :00 No 25mg Take 25 mg by mouth every 6 (six) hours as needed for Allergies. [facility] citalopram hydrobromid e (CITALOPRAM ORAL) 2021-05 09:39: 49 02-27 00:00 :00 No Take by mouth. [facility] carbamazepi ne (TEGRETOL ORAL) 2021-05 09:39: 28 02-27 00:00 :00 No Take by mouth. [facility] albuterol 90 mcg/actuati on inhaler 2021-05 00:00: 00 02-26 00:00 :00 No [id number] 2{puff} Inhale 2 Puffs every 6 (six) hours as needed for Wheezing or Shortness of Breath. [facility] SUMAtriptan 50 mg tablet 2021-05 00:00: 00 03-21 00:00 :00 No 50mg Take 50 mg by mouth as needed for Migraine. Take one tablet at onset of migraine, may take another tablet 2 hours after initial dose if no relief with first dose. DO NOT EXCEED 100mg in a 24 hour period. [facility] benzonatate 200 mg capsule 2021-05 00:00: 00 03-07 04:59 :00 No [id number] 200mg Take 1 capsule by mouth 3 (three) times daily as needed for Cough for up to 7 days. [facility] butalbital- acetaminoph en-caff (ESGIC) 50-325-40 mg tablet 1 tablet 2021-05 08:15: 00 02-21 08:09 :00 No 1{tbl} 1 tablet, Oral, ONCE, 1 dose, On Sat02/21/22 at 0315, [facility] butorphanol (STADOL) injection 1 mg 2021-05 08:15: 00 02-21 07:28 :00 No 1mg 1 mg, IV Push, ONCE, 1 dose, On Sat02/21/22 at 0315, Routine [facility] NaCl 0.9% (NS) bolus infusion 1,000 mL 2021-05 07:15: 00 02-21 08:40 :00 No 1000mL at 999 mL/hr, 1,000 mL, IV Infusion, ONCE, 1 dose, On Sat02/21/22 at 0215, [facility] proMETHazin e (PHENERGAN) 12.5 mg in NaCl 0.9% (NS) 50 mL IV piggyback 2021-05 06:30: 00 02-21 06:38 :00 No 12.5mg 12.5 mg, IV Piggyback, ONCE, 1 dose, On Sat02/21/22 at 0130, [facility] dexamethaso ne sod phos PF injection 10 mg 2021-05 06:30: 00 02-21 06:38 :00 No 10mg 10 mg, Slow IV Push, ONCE, 1 dose, On Sat02/21/22 at 0130, 1 mL [facility] ketorolac (TORADOL) injection 15 mg 2021-05 06:30: 00 02-21 06:38 :00 No 15mg 15 mg, Slow IV Push, ONCE, 1 dose, On Sat02/21/22 at 0130, [facility] diphenhydrA MINE (BENADRYL) injection 25 mg 2021-05 06:30: 00 02-21 06:38 :00 No 25mg 25 mg, Slow IV Push, ONCE, 1 dose, On Sat02/21/22 at 0130, STAT [facility] FENTanyl PF (SUBLIMAZE (PF)) injection 50 mcg 2021-05 20:30: 00 02-18 19:44 :00 No 50ug 50 mcg, Slow IV Push, ONCE, 1 dose, On 02/18/22 at 1530, Routine [facility] ketorolac (TORADOL) injection 30 mg 2021-05 20:15: 00 02-18 20:09 :00 No 30mg 30 mg, Slow IV Push, ONCE, 1 dose, [facility] 15[facility] iop[facility] (ISOVUE 370-500 mL) injection 60 mL 2021-05 19:30: 00 02-18 17:30 :00 No [id number] 60mL 60 mL, Intravenou s, ONCE, 1 dose, On 02/18/22 at 1430, Routine [facility] proMETHazin e (PHENERGAN) 12.5 mg in NaCl 0.9% (NS) 50 mL IV piggyback 2021-05 18:15: 00 02-18 18:19 :00 No 12.5mg 12.5 mg, IV Piggyback, ONCE, 1 dose, On 02/18/22 at 1315, [place] [facility] FENTanyl PF (SUBLIMAZE (PF)) injection 50 mcg 2021-05 18:00: 00 02-18 17:26 :00 No 50ug 50 mcg, Slow IV Push, ONCE, 1 dose, On 02/18/22 at 1300, Routine [facility] ondansetron (ZOFRAN (PF)) injection 4 mg 2021-05 17:15: 00 02-18 17:27 :00 No 4mg 4 mg, Slow IV Push, ONCE, 1 dose, [facility]18[facility]22 [facility] 1215[facility] mor[facility] (2 mg/mL) injection 4 mg 01-18 15:15: 00 01-18 14:49 :00 No 4mg 4 mg, Slow IV Push, ONCE, 1 dose, On Kathie 01/18/22 at 1015, STAT [facility] ondansetron (ZOFRAN (PF)) injection 4 mg 01-18 13:30: 00 01-18 13:33 :00 No 4mg 4 mg, Slow IV Push, ONCE, 1 dose, On Kathie 01/18/22 at 0830, [facility] morpHINE (4 mg/mL) injection 4 mg 01-18 13:30: 00 01-18 13:34 :00 No 4mg 4 mg, Slow IV Push, ONCE, 1 dose, On Kathie 01/18/22 at 0830, STAT [facility] morpHINE (4 mg/mL) injection 4 mg 01-18 12:30: 00 01-18 11:39 :00 No 4mg 4 mg, Slow IV Push, ONCE, 1 dose, On Kathie 01/18/22 at 0730, STAT [facility] famotidine (PEPCID (PF)) injection 20 mg 01-18 11:30: 00 01-18 10:52 :00 No 20mg 20 mg, Slow IV Push, ONCE, 1 dose, On Kathie 01/18/22 at 0630, [facility] ondansetron (ZOFRAN (PF)) injection 4 mg 01-18 11:30: 00 01-18 10:52 :00 No 4mg 4 mg, Slow IV Push, ONCE, 1 dose, On Kathie 01/18/22 at 0630, [facility] iodixanoL (VISIPAQUE 270-150 mL) injection 80 mL 01-18 11:21: 00 01-18 11:15 :00 No [id number] 80mL 80 mL, Intravenou s, ONCE, 1 dose, On Kathie 01/18/22 at 0630, Routine [facility] NaCl 0.9% (NS) bolus infusion 1,000 mL 01-18 11:15: 00 01-18 12:59 :00 No 1000mL at 999 mL/hr, 1,000 mL, IV Infusion, ONCE, 1 dose, On Kathie 01/18/22 at 0615, [facility] morpHINE (4 mg/mL) injection 4 mg 01-18 10:45: 00 01-18 10:52 :00 No 4mg 4 mg, Slow IV Push, ONCE, 1 dose, On Kathie 01/18/22 at 0545, STAT [facility] traMADoL 50 mg tablet 01-18 00:00: 00 02-27 00:00 :00 No [id number] 50mg Take 1 tablet by mouth every 6 (six) hours as needed for Pain (scale 7-10). Indication s: acute pain [facility] ondansetron 4 mg disintegrat ing tablet 01-18 00:00: 00 02-27 00:00 :00 No [id number] 4mg Take 1 tablet by mouth every 8 (eight) hours as needed for Nausea and Vomiting (N/V). [facility] ibuprofen 600 mg tablet 01-18 00:00: 00 02-27 00:00 :00 No [id number] 600mg Take 1 tablet by mouth every 6 (six) hours as needed for Pain (scale 4-6). [facility] predniSONE 20 mg tablet 01-16 00:00: 00 01-24 04:59 :00 No [id number] 40mg Take 2 tablets by mouth in the morning for 7 days. [facility] morpHINE (4 mg/mL) injection 4 mg 01-15 16:15: 00 01-15 15:28 :00 No 4mg 4 mg, Slow IV Push, ONCE, 1 dose, On Sat01/15/22 at 1115, [facility] proMETHazin e (PHENERGAN) 12.5 mg in NaCl 0.9% (NS) 50 mL IV piggyback 01-15 15:30: 00 01-15 15:28 :00 No 12.5mg 12.5 mg, IV Piggyback, ONCE, 1 dose, On Sat01/15/22 at 1030, [place] [facility] NaCl 0.9% (NS) bolus infusion 1,000 mL 01-15 15:00: 00 01-15 15:38 :00 No 1000mL at 999 mL/hr, 1,000 mL, IV Infusion, ONCE, 1 dose, On Sat01/15/22 at 1000, [facility] morpHINE (4 mg/mL) injection 4 mg 01-15 15:00: 00 01-15 14:37 :00 No 4mg 4 mg, Slow IV Push, ONCE, 1 dose, On Sat01/15/22 at 1000, [facility] ondansetron (ZOFRAN (PF)) injection 8 mg 01-15 14:15: 00 01-15 14:37 :00 No 8mg 8 mg, Slow IV Push, ONCE, 1 dose, On Sat01/15/22 at 0915, [facility] dexamethaso ne sod phos PF injection 10 mg 01-15 14:15: 00 01-15 14:37 :00 No 10mg 10 mg, Slow IV Push, ONCE, 1 dose, On Sat01/15/22 at 0915, 1 mL [facility] proMETHazin e 25 mg tablet 01-15 00:00: 00 02-27 00:00 :00 No [id number] 25mg Take 1 tablet by mouth every 6 (six) hours as needed for Nausea and Vomiting (N/V). [facility] ondansetron (ZOFRAN-ODT ) disintegrat ing tablet 4 mg 01-09 01:45: 00 01-09 00:56 :00 No 4mg 4 mg, Oral, ONCE, 1 dose, On Sat01/08/22 at 2045, Routine [facility] HYDROcodone -acetaminop hen (NORCO 5) 5-325 mg tablet 1 tablet 01-09 00:45: 00 01-09 00:37 :00 No 1{tbl} 1 tablet, Oral, ONCE, 1 dose, On Sat01/08/22 at 1945, [facility] diphenhydrA MINE (BENADRYL) injection 25 mg 01-08 23:45: 00 01-08 23:51 :00 No 25mg 25 mg, Slow IV Push, ONCE, 1 dose, On Sat01/08/22 at 1845, STAT [facility] dexamethaso ne sod phos PF injection 10 mg 01-08 23:45: 00 01-08 23:50 :00 No 10mg 10 mg, Slow IV Push, ONCE, 1 dose, On Sat01/08/22 at 1845, 1 mL [facility] ketorolac (TORADOL) injection 30 mg 01-08 23:45: 00 01-08 23:51 :00 No 30mg 30 mg, Slow IV Push, ONCE, 1 dose, On Sat01/08/22 at 1845, [place] [facility] acetaminoph en (TYLENOL ARTHRITIS PAIN) 650 mg CR tablet 01-08 00:00: 00 04-07 00:00 :00 No [id number] 650mg Take 1 tablet by mouth every 8 (eight) hours as needed for Pain. [facility] ondansetron 4 mg disintegrat ing tablet 01-08 00:00: 00 02-27 00:00 :00 No [id number] 4mg Take 1 tablet by mouth every 8 (eight) hours as needed for Nausea and Vomiting (N/V). [facility] ketorolac 10 mg tablet 01-08 00:00: 00 02-27 00:00 :00 No [id number] 10mg Take 1 tablet by mouth every 6 (six) hours as needed for Pain (scale 4-6) or Pain (scale 7-10). [facility] metaxalone (SKELAXIN) 800 mg tablet 01-08 00:00: 00 02-27 00:00 :00 No [id number] 800mg Take 1 tablet by mouth in the morning and 1 tablet at noon and 1 tablet in the evening. [facility] metroNIDAZO LE 500 mg tablet 12-18 00:00: 00 02-27 00:00 :00 No 500mg Take 1 tablet by mouth every 12 (twelve) hours. [facility] trazodone/d ietary supp. no.8 (TRAZAMINE ORAL) 12-12 15:08: 46 12-12 00:00 :00 No Take by mouth. [facility] diphenhydrA MINE 25 mg capsule 12-12 13:03: 04 Yes 25mg Take 25 mg by mouth every 6 (six) hours as needed for Allergies. [facility] carbamazepi ne (TEGRETOL ORAL) 12-12 13:03: 04 Yes Take by mouth. [facility] traZODone 50 mg tablet 12-12 00:00: 00 02-27 00:00 :00 No [id number] 50mg Take 1 tablet by mouth at bedtime. [facility] SERTraline (ZOLOFT) 50 mg tablet 12-12 00:00: 00 02-27 00:00 :00 No [id number] 50mg Take 1 tablet by mouth in the morning. [facility] sulfamethox azole-trime thoprim (BACTRIM DS) 800-160 mg per tablet 12-12 00:00: 00 12-16 04:59 :00 No [id number] 1{tbl} Take 1 tablet by mouth in the morning and 1 tablet in the evening. Do all this for 3 days. [facility] ibuprofen 600 mg tablet 11-24 00:00: 00 02-27 00:00 :00 No [id number] 600mg Take 1 tablet by mouth every 6 (six) hours as needed for Pain (scale 4-6). [facility] acetaminoph en-codeine 300-30 mg tablet 11-24 00:00: 00 12-12 00:00 :00 No [id number] 1{tbl} Take 1 tablet by mouth every 4 (four) hours as needed for Pain (scale 4-6). Indication s: acute pain [facility] bromphenira mine-pseudo ephedrine-D M (BROMFED DM) 2-30-10 mg/5 mL syrup 11-18 00:00: 00 03-24 00:00 :00 No [id number] 5mL Take 5 mL by mouth 4 (four) times daily as needed for Congestion /Allergies or Cough. [facility] naproxen 500 mg tablet 11-18 00:00: 00 02-27 00:00 :00 No [id number] 500mg Take 1 tablet by mouth every 8 (eight) hours as needed for Pain (scale 4-6). [facility] cyclobenzap rine 10 mg tablet 11-18 00:00: 00 02-27 00:00 :00 No [id number] 10mg Take 1 tablet by mouth at bedtime as needed for Muscle Spasms. [facility] ibuprofen 100 mg/5 mL oral suspension 10-25 00:00: 00 02-27 00:00 :00 No [id number] 605mg Take 30.25 mL by mouth every 6 (six) hours as needed for Pain (scale 4-6) or Temp > 38.5 C. [facility] acetaminoph en 160 mg/5 mL liquid 10-25 00:00: 00 12-12 00:00 :00 No [id number] 608mg Take 19 mL by mouth every 6 (six) hours as needed for Fever. [facility] DULoxetine 60 mg capsule 10-06 00:00: 00 02-27 00:00 :00 No [facility] traZODone 50 mg tablet 10-06 00:00: 00 12-12 00:00 :00 No [facility] mometasone 50 mcg/actuati on nasal spray 09-28 00:00: 00 02-27 00:00 :00 No [id number] 1{spray } Use 1 Mary Alice in each nostril 2 (two) times daily. [facility] cetirizine (ZYRTEC) 10 mg tablet 16 00:00: 00 02-27 00:00 :00 No [id number] 10mg Take 1 tablet by mouth daily. [facility] DULoxetine 30 mg capsule 09-18 00:00: 02-27 00:00 :00 No [facility] gabapentin 300 mg capsule 09-18 00:00: 00 02-27 00:00 :00 No [facility] ondansetron 4 mg tablet 09-18 00:00: 00 02-27 00:00 :00 No [facility] amLODIPine 5 mg tablet 09-01 00:00: 00 02-27 00:00 :00 No 5mg Take 5 mg by mouth. [facility] buPROPion XL 150 mg 24 hr tablet 08-30 00:00: 00 02-27 00:00 :00 No 150mg Take 150 mg by mouth. [facility] proMETHazin e 25 mg tablet 08-15 00:00: 00 09-12 00:00 :00 No [id number] 25mg Take 1 tablet by mouth every 6 (six) hours as needed for Nausea and Vomiting (N/V). [facility] traMADoL 50 mg tablet 08-15 00:00: 00 09-12 00:00 :00 No [id number] 50mg Take 1 tablet by mouth every 6 (six) hours as needed (pain). Indication s: acute pain [facility] cyclobenzap rine 10 mg tablet 08-07 00:00: 00 08-22 04:59 :00 No [id number] 10mg Take 1 tablet by mouth 3 (three) times daily for 14 days. [facility] ibuprofen 800 mg tablet 08-07 00:00: 00 08-22 04:59 :00 No [id number] 800mg Take 1 tablet by mouth every 6 (six) hours as needed for Pain (scale 1-3) for up to 14 days. [facility] diclofenac 75 mg EC tablet 08-01 00:00: 09-12 00:00 :00 No [facility] orphenadrin e 100 mg SR tablet 08-01 00:00: 09-12 00:00 :00 No [facility] divalproex 125 mg EC tablet 3- 00:00: 00 09-12 00:00 :00 No [id number] 125mg Take 1 tablet by mouth every 12 (twelve) hours. [facility] divalproex Sprinkles 125 mg SPRINKLE capsule 07-21 00:00: 00 09-12 00:00 :00 No [facility] ibuprofen 600 mg tablet 07-17 00:00: 00 08-01 04:59 :00 No [id number] 600mg Take 1 tablet by mouth every 6 (six) hours as needed for Temp > 38.5 C for up to 14 days. [facility] acetaminoph en-codeine 300-30 mg tablet 06-11 00:00: 09-12 00:00 :00 No TAKE 1 TABLET BY MOUTH EVERY 4 HOURS NEEDED FOR PAIN FOR 2 DAYS [facility] fluticasone propionate 110 mcg/actuati on inhaler 05-31 00:00: 00 09-28 00:00 :00 No [id number] 2{puff} Inhale 2 Puffs every 12 (twelve) hours. [facility] benzonatate (TESSALON PERLES) 100 mg capsule 1-13 00:00: 00 09-25 00:00 :00 No [id number] 100mg Take 1 capsule by mouth every 8 (eight) hours as needed for Cough. [facility] carvediloL 25 mg tablet 2020-05 00:00: 00 02-27 00:00 :00 No 25mg Take 1 tablet by mouth 2 (two) times daily with meals. [facility] losartan 50 mg tablet 2020-05 00:00: 00 02-27 00:00 :00 No 50mg Take 1 tablet by mouth 2 (two) times daily. [facility] proMETHazin e 25 mg tablet 2020-05 00:00: 00 09-12 00:00 :00 No [facility] methocarbam oL (ROBAXIN) 500 mg tablet 2020-05 00:00: 00 05-25 00:00 :00 No [id number] 500mg Take 1 tablet by mouth every 6 (six) hours as needed (MUSCLE SPASM). [facility] vitamin B-12 (VITAMIN B-12) 500 mcg tablet 2020-05 00:00: 00 09-12 00:00 :00 No [id number] 500ug Take 1 tablet by mouth daily. [facility] methylPREDN ISolone 4 mg tablets 2020-05 00:00: 00 05-25 00:00 :00 No [id number] Follow package directions [facility] fluticasone propion-chel meteroL 115-21 mcg/actuati on inhaler 02-09 00:00: 05-25 00:00 :00 No [id number] 2{puff} Inhale 2 Puffs 2 (two) times daily. Rinse mouth after each use. [facility] albuterol 2.5 mg /3 mL (0.083 %) nebulizer solution 02-09 00:00: 00 05-25 00:00 :00 No [id number] 2.5mg Inhale 3 mL every 6 (six) hours as needed for Wheezing or Shortness of Breath. [facility] methocarbam oL (ROBAXIN) 500 mg tablet 02-09 00:00: 00 05-02 00:00 :00 No [id number] 500mg Take 1 tablet by mouth every 6 (six) hours as needed (MUSCLE SPASM). [facility] bromphenira mine-pseudo ephedrine-D M (BROMFED DM) 2-30-10 mg/5 mL syrup 01-31 00:00: 00 02-09 00:00 :00 No [id number] 5mL Take 5 mL by mouth 4 (four) times daily as needed for Cough. [facility] methylPREDN ISolone (MEDROL, ANABELA,) 4 mg tablets 01-20 00:00: 00 02-09 00:00 :00 No [id number] Take by mouth SEE-INSTRU CTIONS. follow package directions [facility] albuterol 90 mcg/actuati on inhaler 01-12 00:00: 00 05-25 00:00 :00 No [id number] 2{puff} Inhale 2 Puffs every 4 (four) hours as needed for Wheezing or Shortness of Breath. [facility] benzonatate 100 mg capsule 01-12 00:00: 00 02-19 00:00 :00 No [id number] 100mg Take 1 capsule by mouth 3 (three) times daily as needed for Cough. [facility] losartan 50 mg tablet 12-23 00:00: 00 02-09 00:00 :00 No 50mg Take 1 tablet by mouth 2 (two) times daily. [facility] topiramate 25 mg tablet 11-22 00:00: 00 12-26 00:00 :00 No 25mg Take 1 tablet by mouth 2 (two) times daily. [facility] OXcarbazepi ne 150 mg tablet 11-21 00:00: 00 02-09 00:00 :00 No [facility] FLUoxetine 40 mg capsule 11-21 00:00: 00 12-26 00:00 :00 No [facility] traZODone 100 mg tablet 11-21 00:00: 00 12-26 00:00 :00 No [facility] dicyclomine 20 mg tablet 6-10 00:00: 00 12-26 00:00 :00 No [id number] 20mg Take 1 tablet by mouth 4 (four) times daily. [facility] proMETHazin e 25 mg tablet 6-10 00:00: 00 12-26 00:00 :00 No [id number] 25mg Take 1 tablet by mouth every 6 (six) hours as needed for Nausea and Vomiting (N/V). [facility] acetaminoph en-codeine 300-30 mg tablet 6-05 00:00: 00 12-26 00:00 :00 No TAKE 2 TABLETS BY MOUTH EVERY 6 HOURS NEEDED FOR PAIN [facility] oxybutynin (DITROPAN XL) 10 mg 24 hr tablet 530 00:00: 00 12-26 00:00 :00 No [id number] 10mg Take 1 tablet by mouth daily. [facility] ondansetron (ZOFRAN ODT) 4 mg disintegrat ing tablet 530 00:00: 00 12-26 00:00 :00 No [id number] 4mg Take 1 tablet by mouth every 8 (eight) hours as needed for Nausea and Vomiting (N/V). [facility] ciprofloxac in HCl 500 mg tablet 530 00:00: 00 11-22 00:00 :00 No [id number] 500mg Take 1 tablet by mouth 2 (two) times daily. [facility] predniSONE 20 mg tablet 525 00:00: 00 11-22 00:00 :00 No [id number] 20mg Take 1 tablet by mouth daily. Days 1-2: 3 pills (60 mg). Days 3-4: 2 pills (40 mg). Days 5-6: 1 pill (20 mg). Days 7-8: 1/2 pill (10 mg). Then stop [facility] mupirocin 2 % ointment 520 00:00: 00 12-26 00:00 :00 No [id number] Apply to both nostrils at bedtime [facility] naproxen sodium (ANAPROX DS) 550 mg tablet 519 00:00: 00 12-26 00:00 :00 No [id number] 550mg Take 1 tablet by mouth 2 (two) times daily with meals. [facility] losartan 25 mg tablet 09-16 00:00: 12-22 00:00 :00 No 25mg Take 1 tablet by mouth 2 (two) times daily. [facility] nadoloL 20 mg tablet 09-16 00:00: 12-22 00:00 :00 No [id number] Please take Nadalol 40 mg QAM [facility] LOESTRIN FE (LOESTRIN FE 1/20) 1 mg-20 mcg (21)/75 mg (7) tablet 09-06 00:00: 00 02-09 00:00 :00 No [id number] 1{tbl} Take 1 tablet by mouth daily. [facility] FLUoxetine 20 mg capsule 09-06 00:00: 00 11-22 00:00 :00 No [id number] 20mg Take 1 capsule by mouth daily. [facility] traZODone 50 mg tablet 09-06 00:00: 00 11-22 00:00 :00 No [id number] 50mg Take 1 tablet by mouth at bedtime. [facility] nadoloL 20 mg tablet 08-31 00:00: 00 09-16 00:00 :00 No [id number] Please take Nadalol 40 mg QAM and 20 mg QPM [facility] methocarbam oL (ROBAXIN) 500 mg tablet 08-18 00:00: 00 09-30 00:00 :00 No [id number] 500mg Take 1 tablet by mouth every 6 (six) hours as needed (MUSCLE SPASM). [facility] traMADoL (ULTRAM) 50 mg tablet 08-18 00:00: 00 09-30 00:00 :00 No [id number] 50mg Take 1 tablet by mouth every 6 (six) hours as needed for Pain (scale 7-10). Indication s: acute pain [facility] ibuprofen 800 mg tablet 2021-0 4-04 00:00: 11-22 00:00 :00 No TAKE 1 TABLET BY MOUTH EVERY 12 HOURS NEEDED FOR PAIN [facility] ondansetron (ZOFRAN ODT) 4 mg disintegrat ing tablet 08-01 00:00: 00 09-30 00:00 :00 No [id number] 4mg Take 1 tablet by mouth every 8 (eight) hours as needed for Nausea and Vomiting (N/V). [facility] ketorolac 10 mg tablet 08-01 00:00: 00 09-30 00:00 :00 No [id number] 10mg Take 1 tablet by mouth every 6 (six) hours as needed for Pain (scale 4-6). [facility] ciprofloxac in HCl 250 mg tablet 08-01 00:00: 00 09-30 00:00 :00 No [id number] 250mg Take 1 tablet by mouth 2 (two) times daily. [facility] lidocaine 5 % (700 mg/patch) patch 07-22 00:00: 00 09-30 00:00 :00 No [id number] 1{patch } Apply 1 Patch to area(s) every 24 (twenty-fo ur) hours as needed for Localized pain. [facility] topiramate 25 mg tablet 05-17 00:00: 00 11-22 00:00 :00 No 25mg Take 1 tablet by mouth 2 (two) times daily. [facility] metoprolol succinate XL 25 mg 24 hr tablet 2019-05 00:00: 00 06-15 00:00 :00 No [id number] 12.5mg Take 0.5 tablets by mouth 2 (two) times daily for 90 days. [facility] FLUoxetine 20 mg capsule 2019-05 00:00: 00 09-06 00:00 :00 No 20mg Take 20 mg by mouth daily. [facility] norgestimat e-ethinyl estradiol 0.25-35 mg-mcg per tablet 11-17 00:00: 04-15 00:00 :00 No [id number] 1{tbl} Take 1 tablet by mouth daily. [facility] buPROPion XL (WELLBUTRIN XL) 150 mg 24 hr tablet 08-12 00:00: 01-04 00:00 :00 No [id number] 150mg Take 1 tablet by mouth daily. [facility] acetaminoph en 325 mg tablet 07-22 00:00: 01-04 00:00 :00 No [id number] 650mg Take 2 tablets by mouth every 6 (six) hours as needed for Pain (scale 1-3) or Pain (scale 4-6). [facility] vitamin w/FA tablet 07-22 00:00: 01-04 00:00 :00 No [id number] 1{tbl} Take 1 tablet by mouth daily. [facility] docusate calcium 240 mg capsule 07-22 00:00: 01-04 00:00 :00 No [id number] 240mg Take 1 capsule by mouth once daily as needed for Constipati on. [facility] ferrous sulfate 325 mg (65 mg iron) tablet 07-22 00:00: 01-04 00:00 :00 No [id number] 325mg Take 1 tablet by mouth 2 (two) times daily. [facility] ibuprofen 600 mg tablet 07-22 00:00: 01-04 00:00 :00 No [id number] 600mg Take 1 tablet by mouth every 6 (six) hours as needed (Pain). Take with food or milk. [facility] ALBUTEROL 90 mcg/actuati on inhaler 1-14 00:00: 05-01 00:00 :00 No [id number] 103 INHALE 2 PUFFS BY MOUTH EVERY 6 HOURS NEEDED FOR WHEEZING FOR SHORTNESS OF BREATH [facility] buPROPion SR (WELLBUTRIN SR) 150 mg SR tablet 1-09 00:00: 01-04 00:00 :00 No [id number] 150mg Take 1 tablet by mouth 2 (two) times daily. [facility] busPIRone 10 mg tablet 109 00:00: 00 01-04 00:00 :00 No [id number] 109 10mg Take 1 tablet by mouth 3 (three) times daily. [facility] Immunizations Ordered Immunization Name Filled Immunization Name Date Status Comments Source Influenza Virus Vaccine Quad IM, Preserv and ABX Free 6 MO-64 YRS 2022-02-27 00:00:00 Completed [facility] Influenza Virus Vaccine Quad IM, Preserv and ABX Free 6 MO-64 YRS 2022-02-27 00:00:00 Completed [facility] Influenza Virus Vaccine Quad IM, Preserv and ABX Free 6 MO-64 YRS 2022-02-27 00:00:00 Completed [facility] Influenza Virus Vaccine Quad IM, Preserv and ABX Free 6 MO-64 YRS 2022-02-27 00:00:00 Completed [facility] Influenza Virus Vaccine Quad IM, Preserv and ABX Free 6 MO-64 YRS 2022-02-27 00:00:00 Completed [facility] Influenza Virus Vaccine Quad IM, Preserv and ABX Free 6 MO-64 YRS 2022-02-27 00:00:00 Completed [facility] Influenza Virus Vaccine Quad IM, Preserv and ABX Free 6 MO-64 YRS 2022-02-27 00:00:00 Completed [facility] Influenza Virus Vaccine Quad IM, Preserv and ABX Free 6 MO-64 YRS 2022-02-27 00:00:00 Completed [facility] Influenza Virus Vaccine Quad IM, Preserv and ABX Free 6 MO-64 YRS 2022-02-27 00:00:00 Completed [facility] Influenza Virus Vaccine Quad IM, Preserv and ABX Free 6 MO-64 YRS 2022-02-27 00:00:00 Completed [facility] Influenza Virus Vaccine Quad IM, Preserv and ABX Free 6 MO-64 YRS 2022-02-27 00:00:00 Completed [facility] Influenza Virus Vaccine Quad IM, Preserv and ABX Free 6 MO-64 YRS 2022-02-27 00:00:00 Completed [facility] Influenza Virus Vaccine Quad IM, Preserv and ABX Free 6 MO-64 2022 00:00:00 Completed [facility] Influenza Virus Vaccine Quad IM, Preserv and ABX Free 6 MO-64 YRS 2022-02-27 00:00:00 Completed [facility] Influenza Virus Vaccine Quad IM, Preserv and ABX Free 6 MO-64 YRS 2022-02-27 00:00:00 Completed [facility] Influenza Virus Vaccine Quad IM, Preserv and ABX Free 6 MO-64 YRS 2022-02-27 00:00:00 Completed [facility] Influenza Virus Vaccine Quad IM, Preserv and ABX Free 6 MO-64 YRS 2022-02-27 00:00:00 Completed [facility] Influenza Virus Vaccine Quad IM, Preserv and ABX Free 6 MO-64 YRS 2022-02-27 00:00:00 Completed [facility] Influenza Virus Vaccine Quad IM, Preserv and ABX Free 6 MO-64 YRS 2022-02-27 00:00:00 Completed [facility] Influenza Virus Vaccine Quad IM, Preserv and ABX Free 6 MO-64 YRS 2022-02-27 00:00:00 Completed [facility] Influenza Virus Vaccine Quad IM, Preserv and ABX Free 6 MO-64 YRS 2022-02-27 00:00:00 Completed [facility] Influenza Virus Vaccine Quad IM, Preserv and ABX Free 6 MO-64 YRS 2022-02-27 00:00:00 Completed [facility] Influenza Virus Vaccine Quad IM, Preserv and ABX Free 6 MO-64 YRS 2022-02-27 00:00:00 Completed [facility] Influenza Virus Vaccine Quad IM, Preserv and ABX Free 6 MO-64 YRS 2022-02-27 00:00:00 Completed [facility] Influenza Virus Vaccine Quad IM, Preserv and ABX Free 6 MO-64 YRS 2022-02-27 00:00:00 Completed [facility] Influenza Virus Vaccine Quad IM, Preserv and ABX Free 6 MO-64 YRS 2022-02-27 00:00:00 Completed [facility] Influenza Virus Vaccine Quad IM, Preserv and ABX Free 6 MO-64 YRS 2022-02-27 00:00:00 Completed [facility] Influenza Virus Vaccine Quad IM, Preserv and ABX Free 6 MO-64 YRS 2022-02-27 00:00:00 Completed [facility] Influenza Virus Vaccine Quad IM, Preserv and ABX Free 6 MO-64 YRS 2022-02-27 00:00:00 Completed [facility] Influenza Virus Vaccine Quad IM, Preserv and ABX Free 6 MO-64 YRS 2022-02-27 00:00:00 Completed [facility] Influenza Virus Vaccine Quad IM, Preserv and ABX Free 6 MO-64 YRS 2022-02-27 00:00:00 Completed [facility] Influenza Virus Vaccine Quad IM, Preserv and ABX Free 6 MO-64 YRS 2022-02-27 00:00:00 Completed [facility] Influenza Virus Vaccine Quad IM, Preserv and ABX Free 6 MO-64 YRS 2022-02-27 00:00:00 Completed [facility] Influenza Virus Vaccine Quad IM, Preserv and ABX Free 6 MO-64 YRS 2022-02-27 00:00:00 Completed [facility] Influenza Virus Vaccine Quad IM, Preserv and ABX Free 6 MO-64 YRS 2022-02-27 00:00:00 Completed [facility] Influenza Virus Vaccine Quad IM, Preserv and ABX Free 6 MO-64 YRS 2022-02-27 00:00:00 Completed [facility] Influenza Virus Vaccine Quad IM, Preserv and ABX Free 6 MO-64 YRS 2022-02-27 00:00:00 Completed [facility] Influenza Virus Vaccine Quad IM, Preserv and ABX Free 6 MO-64 YRS 2022-02-27 00:00:00 Completed [facility] Influenza Virus Vaccine Quad IM, Preserv and ABX Free 6 MO-64 YRS 2022-02-27 00:00:00 Completed [facility] Influenza Virus Vaccine Quad IM, Preserv and ABX Free 6 MO-64 YRS 2022-02-27 00:00:00 Completed [facility] Influenza Virus Vaccine Quad IM, Preserv and ABX Free 6 MO-64 YRS 2022-02-27 00:00:00 Completed [facility] Influenza Virus Vaccine Quad IM, Preserv and ABX Free 6 MO-64 YRS (FLUCELVAX) 2022-02-27 00:00:00 Completed [facility] Influenza Virus Vaccine Quad IM, Preserv and ABX Free 6 MO-64 YRS (FLUCELVAX) 2022-02-27 00:00:00 Completed [facility] Influenza Virus Vaccine Quad IM, Preserv and ABX Free 6 MO-64 YRS (FLUCELVAX) 2022-02-27 00:00:00 Completed [facility] Influenza Virus Vaccine Quad .5 mL IM 6+ MO 2022-02-21 00:00:00 Completed [facility] Influenza Virus Vaccine Quad .5 mL IM 6+ MO 2022-02-21 00:00:00 Completed [facility] Influenza Virus Vaccine Quad .5 mL IM 6+ MO 2022-02-21 00:00:00 Completed [facility] Influenza Virus Vaccine Quad .5 mL IM 6+ MO 2022-02-21 00:00:00 Completed [facility] Influenza Virus Vaccine Quad .5 mL IM 6+ MO 2022-02-21 00:00:00 Completed [facility] Influenza Virus Vaccine Quad .5 mL IM 6+ MO 2022-02-21 00:00:00 Completed [facility] Influenza Virus Vaccine Quad .5 mL IM 6+ MO 2022-02-21 00:00:00 Completed [facility] Influenza Virus Vaccine Quad .5 mL IM 6+ MO 2022-02-21 00:00:00 Completed [facility] Influenza Virus Vaccine Quad .5 mL IM 6+ MO 2022-02-21 00:00:00 Completed [facility] Influenza Virus Vaccine Quad .5 mL IM 6+ MO 2022-02-21 00:00:00 Completed [facility] Influenza Virus Vaccine Quad .5 mL IM 6+ MO 2022-02-21 00:00:00 Completed [facility] Influenza Virus Vaccine Quad .5 mL IM 6+ MO 2022-02-21 00:00:00 Completed [facility] Influenza Virus Vaccine Quad .5 mL IM 6+ MO (FLUZONE/FLULAVAL/F LUARIX) 2022-02-21 00:00:00 Completed [facility] Influenza Virus Vaccine Quad .5 mL IM 6+ MO (FLUZONE/FLULAVAL/F LUARIX) 2022-02-21 00:00:00 Completed [facility] Influenza Virus Vaccine Quad .5 mL IM 6+ MO (FLUZONE/FLULAVAL/F LUARIX) 2022-02-21 00:00:00 Completed [facility] Influenza Virus Vaccine 2021-06-11 00:00:00 Completed [facility] Influenza Virus Vaccine 2021-06-11 00:00:00 Completed [facility] Influenza Virus Vaccine 2021-06-11 00:00:00 Completed [facility] Influenza Virus Vaccine 2021-06-11 00:00:00 Completed [facility] Influenza Virus Vaccine 2021-06-11 00:00:00 Completed [facility] Influenza Virus Vaccine 2021-06-11 00:00:00 Completed [facility] Influenza Virus Vaccine 2021-06-11 00:00:00 Completed [facility] Influenza Virus Vaccine 2021-06-11 00:00:00 Completed [facility] Influenza Virus Vaccine 2021-06-11 00:00:00 Completed [facility] Influenza Virus Vaccine 2021-06-11 00:00:00 Completed [facility] Influenza Virus Vaccine 2021-06-11 00:00:00 Completed [facility] Influenza Virus Vaccine 2021-06-11 00:00:00 Completed [facility] Influenza Virus Vaccine 2021-06-11 00:00:00 Completed [facility] Influenza Virus Vaccine 2021-06-11 00:00:00 Completed [facility] Influenza Virus Vaccine 2021-06-11 00:00:00 Completed [facility] Influenza Virus Vaccine 2021-06-11 00:00:00 Completed [facility] Influenza Virus Vaccine 2021-06-11 00:00:00 Completed [facility] Influenza Virus Vaccine 2021-06-11 00:00:00 Completed [facility] Influenza Virus Vaccine 2021-06-11 00:00:00 Completed [facility] Influenza Virus Vaccine 2021-06-11 00:00:00 Completed [facility] Influenza Virus Vaccine 2021-06-11 00:00:00 Completed [facility] Influenza Virus Vaccine 2021-06-11 00:00:00 Completed [facility] Influenza Virus Vaccine 2021-06-11 00:00:00 Completed [facility] Influenza Virus Vaccine 2021-06-11 00:00:00 Completed [facility] Influenza Virus Vaccine 2021-06-11 00:00:00 Completed [facility] Influenza Virus Vaccine 2021-06-11 00:00:00 Completed [facility] Influenza Virus Vaccine 2021-06-11 00:00:00 Completed [facility] Influenza Virus Vaccine 2021-06-11 00:00:00 Completed [facility] Influenza Virus Vaccine 2021-06-11 00:00:00 Completed [facility] Influenza Virus Vaccine 2021-06-11 00:00:00 Completed [facility] Influenza Virus Vaccine 2021-06-11 00:00:00 Completed [facility] Influenza Virus Vaccine 2021-06-11 00:00:00 Completed [facility] Influenza Virus Vaccine 2021-06-11 00:00:00 Completed [facility] Influenza Virus Vaccine 2021-06-11 00:00:00 Completed [facility] Influenza Virus Vaccine 2021-06-11 00:00:00 Completed [facility] Influenza Virus Vaccine 2021-06-11 00:00:00 Completed [facility] Influenza Virus Vaccine 2021-06-11 00:00:00 Completed [facility] Influenza Virus Vaccine 2021-06-11 00:00:00 Completed [facility] Influenza Virus Vaccine 2021-06-11 00:00:00 Completed [facility] Influenza Virus Vaccine 2021-06-11 00:00:00 Completed [facility] Influenza Virus Vaccine 2021-06-11 00:00:00 Completed [facility] Influenza Virus Vaccine Quad .5 mL IM 6+ MO 2021-06-11 00:00:00 Completed [facility] Influenza Virus Vaccine 2021-06-11 00:00:00 Completed [facility] Influenza Virus Vaccine Quad .5 mL IM 6+ MO 2021-06-11 00:00:00 Completed [facility] Influenza Virus Vaccine 2021-06-11 00:00:00 Completed [facility] Influenza Virus Vaccine Quad .5 mL IM 6+ MO 2021-06-11 00:00:00 Completed [facility] Influenza Virus Vaccine 2021-06-11 00:00:00 Completed [facility] Influenza Virus Vaccine Quad .5 mL IM 6+ MO 2021-06-11 00:00:00 Completed [facility] Influenza Virus Vaccine 2021-06-11 00:00:00 Completed [facility] Influenza Virus Vaccine Quad .5 mL IM 6+ MO 2021-06-11 00:00:00 Completed [facility] Influenza Virus Vaccine 2021-06-11 00:00:00 Completed [facility] Influenza Virus Vaccine Quad .5 mL IM 6+ MO 2021-06-11 00:00:00 Completed [facility] Influenza Virus Vaccine 2021-06-11 00:00:00 Completed [facility] Influenza Virus Vaccine Quad .5 mL IM 6+ MO 2021-06-11 00:00:00 Completed [facility] Influenza Virus Vaccine 2021-06-11 00:00:00 Completed [facility] Influenza Virus Vaccine Quad .5 mL IM 6+ MO 2021-06-11 00:00:00 Completed [facility] Influenza Virus Vaccine 2021-06-11 00:00:00 Completed [facility] Influenza Virus Vaccine Quad .5 mL IM 6+ MO 2021-06-11 00:00:00 Completed [facility] Influenza Virus Vaccine 2021-06-11 00:00:00 Completed [facility] Influenza Virus Vaccine Quad .5 mL IM 6+ MO 2021-06-11 00:00:00 Completed [facility] Influenza Virus Vaccine 2021-06-11 00:00:00 Completed [facility] Influenza Virus Vaccine Quad .5 mL IM 6+ MO 2021-06-11 00:00:00 Completed [facility] Influenza Virus Vaccine 2021-06-11 00:00:00 Completed [facility] Influenza Virus Vaccine Quad .5 mL IM 6+ MO 2021-06-11 00:00:00 Completed [facility] Influenza Virus Vaccine 2021-06-11 00:00:00 Completed [facility] Influenza Virus Vaccine Quad .5 mL IM 6+ MO (FLUZONE/FLULAVAL/F LUARIX) 2021-06-11 00:00:00 Completed [facility] Influenza Virus Vaccine 2021-06-11 00:00:00 Completed [facility] Influenza Virus Vaccine Quad .5 mL IM 6+ MO (FLUZONE/FLULAVAL/F LUARIX) 2021-06-11 00:00:00 Completed [facility] Influenza Virus Vaccine 2021-06-11 00:00:00 Completed [facility] Influenza Virus Vaccine Quad .5 mL IM 6+ MO (FLUZONE/FLULAVAL/F LUARIX) 2021-06-11 00:00:00 Completed [facility] Influenza Virus Vaccine 2020-05-19 00:00:00 Completed [facility] Influenza Virus Vaccine 2020-05-19 00:00:00 Completed [facility] Influenza Virus Vaccine 2020-05-19 00:00:00 Completed [facility] Influenza Virus Vaccine 2020-05-19 00:00:00 Completed [facility] Influenza Virus Vaccine 2020-05-19 00:00:00 Completed [facility] Influenza Virus Vaccine 2020-05-19 00:00:00 Completed [facility] Influenza Virus Vaccine 2020-05-19 00:00:00 Completed [facility] Influenza Virus Vaccine 2020-05-19 00:00:00 Completed [facility] Influenza Virus Vaccine 2020-05-19 00:00:00 Completed [facility] Influenza Virus Vaccine 2020-05-19 00:00:00 Completed [facility] Influenza Virus Vaccine 2020-05-19 00:00:00 Completed [facility] Influenza Virus Vaccine 2020-05-19 00:00:00 Completed [facility] Influenza Virus Vaccine 2020-05-19 00:00:00 Completed [facility] Influenza Virus Vaccine 2020-05-19 00:00:00 Completed [facility] Influenza Virus Vaccine 2020-05-19 00:00:00 Completed [facility] Influenza Virus Vaccine 2020-05-19 00:00:00 Completed [facility] Influenza Virus Vaccine 2020-05-19 00:00:00 Completed [facility] Influenza Virus Vaccine 2020-05-19 00:00:00 Completed [facility] Influenza Virus Vaccine 2020-05-19 00:00:00 Completed [facility] Influenza Virus Vaccine 2020-05-19 00:00:00 Completed [facility] Influenza Virus Vaccine 2020-05-19 00:00:00 Completed [facility] Influenza Virus Vaccine 2020-05-19 00:00:00 Completed [facility] Influenza Virus Vaccine 2020-05-19 00:00:00 Completed [place] [facility] Influenza Virus Vaccine 2020-05-19 00:00:00 Completed [facility] Influenza Virus Vaccine 2020-05-19 00:00:00 Completed [facility] Influenza Virus Vaccine 2020-05-19 00:00:00 Completed [facility] Influenza Virus Vaccine 2020-05-19 00:00:00 Completed [facility] Influenza Virus Vaccine 2020-05-19 00:00:00 Completed [facility] Influenza Virus Vaccine 2020-05-19 00:00:00 Completed [facility] Influenza Virus Vaccine 2020-05-19 00:00:00 Completed [facility] Influenza Virus Vaccine 2020-05-19 00:00:00 Completed [facility] Influenza Virus Vaccine 2020-05-19 00:00:00 Completed [facility] Influenza Virus Vaccine 2020-05-19 00:00:00 Completed [facility] Influenza Virus Vaccine 2020-05-19 00:00:00 Completed [facility] Influenza Virus Vaccine 2020-05-19 00:00:00 Completed [facility] Influenza Virus Vaccine 2020-05-19 00:00:00 Completed [facility] Influenza Virus Vaccine 2020-05-19 00:00:00 Completed [facility] Influenza Virus Vaccine 2020-05-19 00:00:00 Completed [facility] Influenza Virus Vaccine 2020-05-19 00:00:00 Completed [facility] Influenza Virus Vaccine 2020-05-19 00:00:00 Completed [facility] Influenza Virus Vaccine 2020-05-19 00:00:00 Completed [facility] Influenza Virus Vaccine 2020-05-19 00:00:00 Completed [facility] Influenza Virus Vaccine 2020-05-19 00:00:00 Completed [facility] Influenza Virus Vaccine 2020-05-19 00:00:00 Completed [facility] Influenza Virus Vaccine 2020-05-19 00:00:00 Completed [facility] Influenza Virus Vaccine 2020-05-19 00:00:00 Completed [facility] Influenza Virus Vaccine 2020-05-19 00:00:00 Completed [facility] Influenza Virus Vaccine 2020-05-19 00:00:00 Completed [facility] Influenza Virus Vaccine 2020-05-19 00:00:00 Completed [facility] Influenza Virus Vaccine 2020-05-19 00:00:00 Completed [facility] Influenza Virus Vaccine 2020-05-19 00:00:00 Completed [facility] Influenza Virus Vaccine 2020-05-19 00:00:00 Completed [facility] Influenza Virus Vaccine 2020-05-19 00:00:00 Completed [facility] Influenza Virus Vaccine 2020-05-19 00:00:00 Completed [facility] Influenza Virus Vaccine 2020-05-19 00:00:00 Completed [facility] Influenza Virus Vaccine Recomb Quad IM, Preserv and ABX Free 18-64 YRS 2020-05-16 00:00:00 Completed [facility] Influenza Virus Vaccine Recomb Quad IM, Preserv and ABX Free 18-64 YRS 2020-05-16 00:00:00 Completed [facility] Influenza Virus Vaccine Recomb Quad IM, Preserv and ABX Free 18-64 YRS 2020-05-16 00:00:00 Completed [facility] Influenza Virus Vaccine Recomb Quad IM, Preserv and ABX Free 18-64 YRS 2020-05-16 00:00:00 Completed [facility] Influenza Virus Vaccine Recomb Quad IM, Preserv and ABX Free 18-64 YRS 2020-05-16 00:00:00 Completed [facility] Influenza Virus Vaccine Recomb Quad IM, Preserv and ABX Free 18-64 YRS 2020-05-16 00:00:00 Completed [facility] Influenza Virus Vaccine Recomb Quad IM, Preserv and ABX Free 18-64 YRS 2020-05-16 00:00:00 Completed [facility] Influenza Virus Vaccine Recomb Quad IM, Preserv and ABX Free 18-64 YRS 2020-05-16 00:00:00 Completed [facility] Influenza Virus Vaccine Recomb Quad IM, Preserv and ABX Free 18-64 YRS 2020-05-16 00:00:00 Completed [facility] Influenza Virus Vaccine Recomb Quad IM, Preserv and ABX Free 18-64 YRS 2020-05-16 00:00:00 Completed [facility] Influenza Virus Vaccine Recomb Quad IM, Preserv and ABX Free 18-64 YRS 2020-05-16 00:00:00 Completed [facility] Influenza Virus Vaccine Recomb Quad IM, Preserv and ABX Free 18-64 YRS 2020-05-16 00:00:00 Completed [facility] Influenza Virus Vaccine Recomb Quad IM, Preserv and ABX Free 18-64 YRS 2020-05-16 00:00:00 Completed [facility] Influenza Virus Vaccine Recomb Quad IM, Preserv and ABX Free 18-64 YRS 2020-05-16 00:00:00 Completed [facility] Influenza Virus Vaccine Recomb Quad IM, Preserv and ABX Free 18-64 YRS 2020-05-16 00:00:00 Completed [facility] Influenza Virus Vaccine Recomb Quad IM, Preserv and ABX Free 18-64 YRS 2020-05-16 00:00:00 Completed [facility] Influenza Virus Vaccine Recomb Quad IM, Preserv and ABX Free 18-64 YRS 2020-05-16 00:00:00 Completed [facility] Influenza Virus Vaccine Recomb Quad IM, Preserv and ABX Free 18-64 YRS 2020-05-16 00:00:00 Completed [facility] Influenza Virus Vaccine Recomb Quad IM, Preserv and ABX Free 18-64 YRS 2020-05-16 00:00:00 Completed [facility] Influenza Virus Vaccine Recomb Quad IM, Preserv and ABX Free 18-64 YRS 2020-05-16 00:00:00 Completed [facility] Influenza Virus Vaccine Recomb Quad IM, Preserv and ABX Free 18-64 YRS 2020-05-16 00:00:00 Completed [facility] Influenza Virus Vaccine Recomb Quad IM, Preserv and ABX Free 18-64 YRS 2020-05-16 00:00:00 Completed [facility] Influenza Virus Vaccine Recomb Quad IM, Preserv and ABX Free 18-64 YRS 2020-05-16 00:00:00 Completed [facility] Influenza Virus Vaccine Recomb Quad IM, Preserv and ABX Free 18-64 YRS 2020-05-16 00:00:00 Completed [facility] Influenza Virus Vaccine Recomb Quad IM, Preserv and ABX Free 18-64 YRS 2020-05-16 00:00:00 Completed [facility] Influenza Virus Vaccine Recomb Quad IM, Preserv and ABX Free 18-64 YRS 2020-05-16 00:00:00 Completed [facility] Influenza Virus Vaccine Recomb Quad IM, Preserv and ABX Free 18-64 YRS 2020-05-16 00:00:00 Completed [facility] Influenza Virus Vaccine Recomb Quad IM, Preserv and ABX Free 18-64 YRS 2020-05-16 00:00:00 Completed [facility] Influenza Virus Vaccine Recomb Quad IM, Preserv and ABX Free 18-64 YRS 2020-05-16 00:00:00 Completed [facility] Influenza Virus Vaccine Recomb Quad IM, Preserv and ABX Free 18-64 YRS 2020-05-16 00:00:00 Completed [facility] Influenza Virus Vaccine Recomb Quad IM, Preserv and ABX Free 18-64 YRS 2020-05-16 00:00:00 Completed [facility] Influenza Virus Vaccine Recomb Quad IM, Preserv and ABX Free 18-64 YRS 2020-05-16 00:00:00 Completed [facility] Influenza Virus Vaccine Recomb Quad IM, Preserv and ABX Free 18-64 YRS 2020-05-16 00:00:00 Completed [facility] Influenza Virus Vaccine Recomb Quad IM, Preserv and ABX Free 18-64 YRS 2020-05-16 00:00:00 Completed [facility] Influenza Virus Vaccine Recomb Quad IM, Preserv and ABX Free 18-64 YRS 2020-05-16 00:00:00 Completed [facility] Influenza Virus Vaccine Recomb Quad IM, Preserv and ABX Free 18-64 YRS 2020-05-16 00:00:00 Completed [facility] Influenza Virus Vaccine Recomb Quad IM, Preserv and ABX Free 18-64 YRS 2020-05-16 00:00:00 Completed [facility] Influenza Virus Vaccine Recomb Quad IM, Preserv and ABX Free 18-64 YRS 2020-05-16 00:00:00 Completed [facility] Influenza Virus Vaccine Recomb Quad IM, Preserv and ABX Free 18-64 YRS 2020-05-16 00:00:00 Completed [facility] Influenza Virus Vaccine Recomb Quad IM, Preserv and ABX Free 18-64 YRS 2020-05-16 00:00:00 Completed [facility] Influenza Virus Vaccine Recomb Quad IM, Preserv and ABX Free 18-64 YRS 2020-05-16 00:00:00 Completed [facility] Influenza Virus Vaccine Recomb Quad IM, Preserv and ABX Free 18-64 YRS 2020-05-16 00:00:00 Completed [facility] Influenza Virus Vaccine Recomb Quad IM, Preserv and ABX Free 18-64 YRS 2020-05-16 00:00:00 Completed [facility] Influenza Virus Vaccine Recomb Quad IM, Preserv and ABX Free 18-64 YRS 2020-05-16 00:00:00 Completed [facility] Influenza Virus Vaccine Recomb Quad IM, Preserv and ABX Free 18-64 YRS 2020-05-16 00:00:00 Completed [facility] Influenza Virus Vaccine Recomb Quad IM, Preserv and ABX Free 18-64 YRS 2020-05-16 00:00:00 Completed [facility] Influenza Virus Vaccine Recomb Quad IM, Preserv and ABX Free 18-64 YRS 2020-05-16 00:00:00 Completed [facility] Influenza Virus Vaccine Recomb Quad IM, Preserv and ABX Free 18-64 YRS 2020-05-16 00:00:00 Completed [facility] Influenza Virus Vaccine Recomb Quad IM, Preserv and ABX Free 18-64 YRS 2020-05-16 00:00:00 Completed [facility] Influenza Virus Vaccine Recomb Quad IM, Preserv and ABX Free 18-64 YRS 2020-05-16 00:00:00 Completed [facility] Influenza Virus Vaccine Recomb Quad IM, Preserv and ABX Free 18-64 YRS 2020-05-16 00:00:00 Completed [facility] Influenza Virus Vaccine Recomb Quad IM, Preserv and ABX Free 18-64 YRS 2020-05-16 00:00:00 Completed [facility] Influenza Virus Vaccine Recomb Quad IM, Preserv and ABX Free 18-64 YRS 2020-05-16 00:00:00 Completed [facility] Influenza Virus Vaccine Recomb Quad IM, Preserv and ABX Free 18-64 YRS 2020-05-16 00:00:00 Completed [facility] Influenza Virus Vaccine Recomb Quad IM, Preserv and ABX Free 18-64 YRS 2020-05-16 00:00:00 Completed [facility] TDAP (ADACEL) VACCINE 2019-05-21 00:00:00 Completed [facility] TDAP (ADACEL) VACCINE 2019-05-21 00:00:00 Completed [facility] TDAP (ADACEL) VACCINE 2019-05-21 00:00:00 Completed [facility] TDAP (ADACEL) VACCINE 2019-05-21 00:00:00 Completed [facility] TDAP (ADACEL) VACCINE 2019-05-21 00:00:00 Completed [facility] TDAP (ADACEL) VACCINE 2019-05-21 00:00:00 Completed [facility] TDAP (ADACEL) VACCINE 2019-05-21 00:00:00 Completed [facility] TDAP (ADACEL) VACCINE 2019-05-21 00:00:00 Completed [facility] TDAP (ADACEL) VACCINE 2019-05-21 00:00:00 Completed [facility] TDAP (ADACEL) VACCINE 2019-05-21 00:00:00 Completed [facility] TDAP (ADACEL) VACCINE 2019-05-21 00:00:00 Completed [facility] TDAP (ADACEL) VACCINE 2019-05-21 00:00:00 Completed [facility] TDAP (ADACEL) VACCINE 2019-05-21 00:00:00 Completed [facility] TDAP (ADACEL) VACCINE 2019-05-21 00:00:00 Completed [facility] TDAP (ADACEL) VACCINE 2019-05-21 00:00:00 Completed [facility] TDAP (ADACEL) VACCINE 2019-05-21 00:00:00 Completed [facility] TDAP (ADACEL) VACCINE 2019-05-21 00:00:00 Completed [facility] TDAP (ADACEL) VACCINE 2019-05-21 00:00:00 Completed [facility] TDAP (ADACEL) VACCINE 2019-05-21 00:00:00 Completed [facility] TDAP (ADACEL) VACCINE 2019-05-21 00:00:00 Completed [facility] TDAP (ADACEL) VACCINE 2019-05-21 00:00:00 Completed [facility] TDAP (ADACEL) VACCINE 2019-05-21 00:00:00 Completed [facility] TDAP (ADACEL) VACCINE 2019-05-21 00:00:00 Completed [facility] TDAP (ADACEL) VACCINE 2019-05-21 00:00:00 Completed [facility] TDAP (ADACEL) VACCINE 2019-05-21 00:00:00 Completed [facility] TDAP (ADACEL) VACCINE 2019-05-21 00:00:00 Completed [facility] TDAP (ADACEL) VACCINE 2019-05-21 00:00:00 Completed [facility] TDAP (ADACEL) VACCINE 2019-05-21 00:00:00 Completed [facility] TDAP (ADACEL) VACCINE 2019-05-21 00:00:00 Completed [facility] TDAP (ADACEL) VACCINE 2019-05-21 00:00:00 Completed [facility] TDAP (ADACEL) VACCINE 2019-05-21 00:00:00 Completed [facility] TDAP (ADACEL) VACCINE 2019-05-21 00:00:00 Completed [facility] TDAP (ADACEL) VACCINE 2019-05-21 00:00:00 Completed [facility] TDAP (ADACEL) VACCINE 2019-05-21 00:00:00 Completed [facility] TDAP (ADACEL) VACCINE 2019-05-21 00:00:00 Completed [facility] TDAP (ADACEL) VACCINE 2019-05-21 00:00:00 Completed [facility] TDAP (ADACEL) VACCINE 2019-05-21 00:00:00 Completed [facility] TDAP (ADACEL) VACCINE 2019-05-21 00:00:00 Completed [facility] TDAP (ADACEL) VACCINE 2019-05-21 00:00:00 Completed [facility] TDAP (ADACEL) VACCINE 2019-05-21 00:00:00 Completed [facility] TDAP (ADACEL) VACCINE 2019-05-21 00:00:00 Completed [facility] TDAP (ADACEL) VACCINE 2019-05-21 00:00:00 Completed [facility] TDAP (ADACEL) VACCINE 2019-05-21 00:00:00 Completed [facility] TDAP (ADACEL) VACCINE 2019-05-21 00:00:00 Completed [facility] TDAP (ADACEL) VACCINE 2019-05-21 00:00:00 Completed [facility] TDAP (ADACEL) VACCINE 2019-05-21 00:00:00 Completed [facility] TDAP (ADACEL) VACCINE 2019-05-21 00:00:00 Completed [facility] TDAP (ADACEL) VACCINE 2019-05-21 00:00:00 Completed [facility] TDAP (ADACEL) VACCINE 2019-05-21 00:00:00 Completed [facility] TDAP (ADACEL) VACCINE 2019-05-21 00:00:00 Completed [facility] TDAP (ADACEL) VACCINE 2019-05-21 00:00:00 Completed [facility] TDAP (ADACEL) VACCINE 2019-05-21 00:00:00 Completed [facility] TDAP (ADACEL) VACCINE 2019-05-21 00:00:00 Completed [facility] TDAP (ADACEL) VACCINE 2019-05-21 00:00:00 Completed [facility] TDAP (ADACEL) VACCINE 2019-05-21 00:00:00 Completed [facility] Influenza Virus Vaccine Quad .5 mL IM 6+ MO 2019-02-06 00:00:00 Completed [facility] Influenza Virus Vaccine Quad .5 mL IM 6+ MO 2019-02-06 00:00:00 Completed [facility] Influenza Virus Vaccine Quad .5 mL IM 6+ MO 2019-02-06 00:00:00 Completed [facility] Influenza Virus Vaccine Quad .5 mL IM 6+ MO 2019-02-06 00:00:00 Completed [facility] Influenza Virus Vaccine Quad .5 mL IM 6+ MO 2019-02-06 00:00:00 Completed [facility] Influenza Virus Vaccine Quad .5 mL IM 6+ MO 2019-02-06 00:00:00 Completed [facility] Influenza Virus Vaccine Quad .5 mL IM 6+ MO 2019-02-06 00:00:00 Completed [facility] Influenza Virus Vaccine Quad .5 mL IM 6+ MO 2019-02-06 00:00:00 Completed [facility] Influenza Virus Vaccine Quad .5 mL IM 6+ MO 2019-02-06 00:00:00 Completed [facility] Influenza Virus Vaccine Quad .5 mL IM 6+ MO 2019-02-06 00:00:00 Completed [facility] Influenza Virus Vaccine Quad .5 mL IM 6+ MO 2019-02-06 00:00:00 Completed [facility] Influenza Virus Vaccine Quad .5 mL IM 6+ MO 2019-02-06 00:00:00 Completed [facility] Influenza Virus Vaccine Quad .5 mL IM 6+ MO 2019-02-06 00:00:00 Completed [facility] Influenza Virus Vaccine Quad .5 mL IM 6+ MO 2019-02-06 00:00:00 Completed [facility] Influenza Virus Vaccine Quad .5 mL IM 6+ MO 2019-02-06 00:00:00 Completed [facility] Influenza Virus Vaccine Quad .5 mL IM 6+ MO 2019-02-06 00:00:00 Completed [facility] Influenza Virus Vaccine Quad .5 mL IM 6+ MO 2019-02-06 00:00:00 Completed [facility] Influenza Virus Vaccine Quad .5 mL IM 6+ MO 2019-02-06 00:00:00 Completed [facility] Influenza Virus Vaccine Quad .5 mL IM 6+ MO 2019-02-06 00:00:00 Completed [facility] Influenza Virus Vaccine Quad .5 mL IM 6+ MO 2019-02-06 00:00:00 Completed [facility] Influenza Virus Vaccine Quad .5 mL IM 6+ MO 2019-02-06 00:00:00 Completed [facility] Influenza Virus Vaccine Quad .5 mL IM 6+ MO 2019-02-06 00:00:00 Completed [facility] Influenza Virus Vaccine Quad .5 mL IM 6+ MO 2019-02-06 00:00:00 Completed [facility] Influenza Virus Vaccine Quad .5 mL IM 6+ MO 2019-02-06 00:00:00 Completed [facility] Influenza Virus Vaccine Quad .5 mL IM 6+ MO 2019-02-06 00:00:00 Completed [facility] Influenza Virus Vaccine Quad .5 mL IM 6+ MO 2019-02-06 00:00:00 Completed [facility] Influenza Virus Vaccine Quad .5 mL IM 6+ MO 2019-02-06 00:00:00 Completed [facility] Influenza Virus Vaccine Quad .5 mL IM 6+ MO 2019-02-06 00:00:00 Completed [facility] Influenza Virus Vaccine Quad .5 mL IM 6+ MO 2019-02-06 00:00:00 Completed [facility] Influenza Virus Vaccine Quad .5 mL IM 6+ MO 2019-02-06 00:00:00 Completed [facility] Influenza Virus Vaccine Quad .5 mL IM 6+ MO 2019-02-06 00:00:00 Completed [facility] Influenza Virus Vaccine Quad .5 mL IM 6+ MO 2019-02-06 00:00:00 Completed [facility] Influenza Virus Vaccine Quad .5 mL IM 6+ MO 2019-02-06 00:00:00 Completed [facility] Influenza Virus Vaccine Quad .5 mL IM 6+ MO 2019-02-06 00:00:00 Completed [facility] Influenza Virus Vaccine Quad .5 mL IM 6+ MO 2019-02-06 00:00:00 Completed [facility] Influenza Virus Vaccine Quad .5 mL IM 6+ MO 2019-02-06 00:00:00 Completed [facility] Influenza Virus Vaccine Quad .5 mL IM 6+ MO 2019-02-06 00:00:00 Completed [facility] Influenza Virus Vaccine Quad .5 mL IM 6+ MO 2019-02-06 00:00:00 Completed [facility] Influenza Virus Vaccine Quad .5 mL IM 6+ MO 2019-02-06 00:00:00 Completed [facility] Influenza Virus Vaccine Quad .5 mL IM 6+ MO 2019-02-06 00:00:00 Completed [facility] Influenza Virus Vaccine Quad .5 mL IM 6+ MO 2019-02-06 00:00:00 Completed [facility] Influenza Virus Vaccine Quad .5 mL IM 6+ MO 2019-02-06 00:00:00 Completed [facility] Influenza Virus Vaccine Quad .5 mL IM 6+ MO 2019-02-06 00:00:00 Completed [facility] Influenza Virus Vaccine Quad .5 mL IM 6+ MO 2019-02-06 00:00:00 Completed [facility] Influenza Virus Vaccine Quad .5 mL IM 6+ MO 2019-02-06 00:00:00 Completed [facility] Influenza Virus Vaccine Quad .5 mL IM 6+ MO 2019-02-06 00:00:00 Completed [facility] Influenza Virus Vaccine Quad .5 mL IM 6+ MO 2019-02-06 00:00:00 Completed [facility] Influenza Virus Vaccine Quad .5 mL IM 6+ MO 2019-02-06 00:00:00 Completed [facility] Influenza Virus Vaccine Quad .5 mL IM 6+ MO 2019-02-06 00:00:00 Completed [facility] Influenza Virus Vaccine Quad .5 mL IM 6+ MO 2019-02-06 00:00:00 Completed [facility] Influenza Virus Vaccine Quad .5 mL IM 6+ MO 2019-02-06 00:00:00 Completed [facility] Influenza Virus Vaccine Quad .5 mL IM 6+ MO 2019-02-06 00:00:00 Completed [facility] Influenza Virus Vaccine Quad .5 mL IM 6+ MO (FLUZONE/FLULAVAL/F LUARIX) 2019-02-06 00:00:00 Completed [facility] Influenza Virus Vaccine Quad .5 mL IM 6+ MO (FLUZONE/FLULAVAL/F LUARIX) 2019-02-06 00:00:00 Completed [facility] Influenza Virus Vaccine Quad .5 mL IM 6+ MO (FLUZONE/FLULAVAL/F LUARIX) 2019-02-06 00:00:00 Completed [facility] Influenza Virus Vaccine Quad .5 mL IM 6+ MO (FLUZONE/FLULAVAL/F LUARIX) Unknown Completed [facility] TDAP (ADACEL) VACCINE Unknown Completed [facility] Influenza Virus Vaccine Recomb Quad IM, Preserv and ABX Free 18-64 YRS Unknown Completed [facility] Influenza Virus Vaccine Unknown Completed [facility] Influenza Virus Vaccine Quad IM, Preserv and ABX Free 6 MO-64 YRS (FLUCELVAX) Unknown Completed [facility] Influenza Virus Vaccine Quad .5 mL IM 6+ MO (FLUZONE/FLULAVAL/F LUARIX) Unknown Completed [facility] TDAP (ADACEL) VACCINE Unknown Completed [facility] Influenza Virus Vaccine Recomb Quad IM, Preserv and ABX Free 18-64 YRS Unknown Completed [facility] Influenza Virus Vaccine Unknown Completed [facility] Influenza Virus Vaccine Quad IM, Preserv and ABX Free 6 MO-64 YRS (FLUCELVAX) Unknown Completed [facility] Influenza Virus Vaccine Quad .5 mL IM 6+ MO (FLUZONE/FLULAVAL/F LUARIX) Unknown Completed [facility] TDAP (ADACEL) VACCINE Unknown Completed [facility] Influenza Virus Vaccine Recomb Quad IM, Preserv and ABX Free 18-64 YRS Unknown Completed [facility] Influenza Virus Vaccine Unknown Completed [facility] Influenza Virus Vaccine Quad .5 mL IM 6+ MO (FLUZONE/FLULAVAL/F LUARIX) Unknown Completed [facility] TDAP (ADACEL) VACCINE Unknown Completed [facility] Influenza Virus Vaccine Recomb Quad IM, Preserv and ABX Free 18-64 YRS Unknown Completed [facility] Influenza Virus Vaccine Unknown Completed [facility] Influenza Virus Vaccine Quad .5 mL IM 6+ MO (FLUZONE/FLULAVAL/F LUARIX) Unknown Completed [facility] TDAP (ADACEL) VACCINE Unknown Completed [facility] Influenza Virus Vaccine Recomb Quad IM, Preserv and ABX Free 18-64 YRS Unknown Completed [facility] Influenza Virus Vaccine Unknown Completed [facility] Influenza Virus Vaccine Quad .5 mL IM 6+ MO (FLUZONE/FLULAVAL/F LUARIX) Unknown Completed [facility] TDAP (ADACEL) VACCINE Unknown Completed [facility] Influenza Virus Vaccine Recomb Quad IM, Preserv and ABX Free 18-64 YRS Unknown Completed [facility] Influenza Virus Vaccine Unknown Completed [facility] Influenza Virus Vaccine Quad .5 mL IM 6+ MO (FLUZONE/FLULAVAL/F LUARIX) Unknown Completed [facility] TDAP (ADACEL) VACCINE Unknown Completed [facility] Influenza Virus Vaccine Recomb Quad IM, Preserv and ABX Free 18-64 YRS Unknown Completed [facility] Influenza Virus Vaccine Unknown Completed [facility] Influenza Virus Vaccine Quad .5 mL IM 6+ MO (FLUZONE/FLULAVAL/F LUARIX) Unknown Completed [facility] TDAP (ADACEL) VACCINE Unknown Completed [facility] Influenza Virus Vaccine Recomb Quad IM, Preserv and ABX Free 18-64 YRS Unknown Completed [facility] Influenza Virus Vaccine Unknown Completed [facility] Influenza Virus Vaccine Quad .5 mL IM 6+ MO (FLUZONE/FLULAVAL/F LUARIX) Unknown Completed [facility] TDAP (ADACEL) VACCINE Unknown Completed [facility] Influenza Virus Vaccine Recomb Quad IM, Preserv and ABX Free 18-64 YRS Unknown Completed [facility] Influenza Virus Vaccine Unknown Completed [facility] Influenza Virus Vaccine Quad .5 mL IM 6+ MO (FLUZONE/FLULAVAL/F LUARIX) Unknown Completed [facility] TDAP (ADACEL) VACCINE Unknown Completed [facility] Influenza Virus Vaccine Recomb Quad IM, Preserv and ABX Free 18-64 YRS Unknown Completed [facility] Influenza Virus Vaccine Unknown Completed [facility] Influenza Virus Vaccine Quad .5 mL IM 6+ MO (FLUZONE/FLULAVAL/F LUARIX) Unknown Completed [facility] TDAP (ADACEL) VACCINE Unknown Completed [facility] Influenza Virus Vaccine Recomb Quad IM, Preserv and ABX Free 18-64 YRS Unknown Completed [facility] Influenza Virus Vaccine Unknown Completed [facility] Influenza Virus Vaccine Quad .5 mL IM 6+ MO (FLUZONE/FLULAVAL/F LUARIX) Unknown Completed [facility] TDAP (ADACEL) VACCINE Unknown Completed [facility] Influenza Virus Vaccine Recomb Quad IM, Preserv and ABX Free 18-64 YRS Unknown Completed [facility] Influenza Virus Vaccine Unknown Completed [facility] Influenza Virus Vaccine Quad .5 mL IM 6+ MO (FLUZONE/FLULAVAL/F LUARIX) Unknown Completed [facility] TDAP (ADACEL) VACCINE Unknown Completed [facility] Influenza Virus Vaccine Recomb Quad IM, Preserv and ABX Free 18-64 YRS Unknown Completed [facility] Influenza Virus Vaccine Unknown Completed [facility] Influenza Virus Vaccine Quad .5 mL IM 6+ MO (FLUZONE/FLULAVAL/F LUARIX) Unknown Completed [facility] TDAP (ADACEL) VACCINE Unknown Completed [facility] Influenza Virus Vaccine Recomb Quad IM, Preserv and ABX Free 18-64 YRS Unknown Completed [facility] Influenza Virus Vaccine Unknown Completed [facility] Influenza Virus Vaccine Quad .5 mL IM 6+ MO (FLUZONE/FLULAVAL/F LUARIX) Unknown Completed [facility] TDAP (ADACEL) VACCINE Unknown Completed [facility] Influenza Virus Vaccine Recomb Quad IM, Preserv and ABX Free 18-64 YRS Unknown Completed [facility] Influenza Virus Vaccine Unknown Completed [facility] Influenza Virus Vaccine Quad .5 mL IM 6+ MO (FLUZONE/FLULAVAL/F LUARIX) Unknown Completed [facility] TDAP (ADACEL) VACCINE Unknown Completed [facility] Influenza Virus Vaccine Recomb Quad IM, Preserv and ABX Free 18-64 YRS Unknown Completed [facility] Influenza Virus Vaccine Unknown Completed [facility] Influenza Virus Vaccine Quad .5 mL IM 6+ MO (FLUZONE/FLULAVAL/F LUARIX) Unknown Completed [facility] TDAP (ADACEL) VACCINE Unknown Completed [facility] Influenza Virus Vaccine Recomb Quad IM, Preserv and ABX Free 18-64 YRS Unknown Completed [facility] Influenza Virus Vaccine Unknown Completed [facility] Influenza Virus Vaccine Quad .5 mL IM 6+ MO (FLUZONE/FLULAVAL/F LUARIX) Unknown Completed [facility] TDAP (ADACEL) VACCINE Unknown Completed [facility] Influenza Virus Vaccine Recomb Quad IM, Preserv and ABX Free 18-64 YRS Unknown Completed [facility] Influenza Virus Vaccine Unknown Completed [facility] Influenza Virus Vaccine Quad .5 mL IM 6+ MO (FLUZONE/FLULAVAL/F LUARIX) Unknown Completed [facility] TDAP (ADACEL) VACCINE Unknown Completed [facility] Influenza Virus Vaccine Recomb Quad IM, Preserv and ABX Free 18-64 YRS Unknown Completed [facility] Influenza Virus Vaccine Unknown Completed [facility] Influenza Virus Vaccine Quad .5 mL IM 6+ MO (FLUZONE/FLULAVAL/F LUARIX) Unknown Completed [facility] TDAP (ADACEL) VACCINE Unknown Completed [facility] Influenza Virus Vaccine Recomb Quad IM, Preserv and ABX Free 18-64 YRS Unknown Completed [facility] Influenza Virus Vaccine Unknown Completed [facility] Influenza Virus Vaccine Quad .5 mL IM 6+ MO (FLUZONE/FLULAVAL/F LUARIX) Unknown Completed [facility] TDAP (ADACEL) VACCINE Unknown Completed [facility] Influenza Virus Vaccine Recomb Quad IM, Preserv and ABX Free 18-64 YRS Unknown Completed [facility] Influenza Virus Vaccine Unknown Completed [facility] Influenza Virus Vaccine Quad .5 mL IM 6+ MO (FLUZONE/FLULAVAL/F LUARIX) Unknown Completed [facility] TDAP (ADACEL) VACCINE Unknown Completed [facility] Influenza Virus Vaccine Recomb Quad IM, Preserv and ABX Free 18-64 YRS Unknown Completed [facility] Influenza Virus Vaccine Unknown Completed [facility] Influenza Virus Vaccine Quad .5 mL IM 6+ MO (FLUZONE/FLULAVAL/F LUARIX) Unknown Completed [facility] TDAP (ADACEL) VACCINE Unknown Completed [facility] Influenza Virus Vaccine Recomb Quad IM, Preserv and ABX Free 18-64 YRS Unknown Completed [facility] Influenza Virus Vaccine Unknown Completed [facility] Influenza Virus Vaccine Quad .5 mL IM 6+ MO (FLUZONE/FLULAVAL/F LUARIX) Unknown Completed [facility] TDAP (ADACEL) VACCINE Unknown Completed [facility] Influenza Virus Vaccine Recomb Quad IM, Preserv and ABX Free 18-64 YRS Unknown Completed [facility] Influenza Virus Vaccine Unknown Completed [facility] Influenza Virus Vaccine Quad .5 mL IM 6+ MO (FLUZONE/FLULAVAL/F LUARIX) Unknown Completed [facility] TDAP (ADACEL) VACCINE Unknown Completed [facility] Influenza Virus Vaccine Recomb Quad IM, Preserv and ABX Free 18-64 YRS Unknown Completed [facility] Influenza Virus Vaccine Unknown Completed [facility] Influenza Virus Vaccine Quad .5 mL IM 6+ MO (FLUZONE/FLULAVAL/F LUARIX) Unknown Completed [facility] TDAP (ADACEL) VACCINE Unknown Completed [facility] Influenza Virus Vaccine Recomb Quad IM, Preserv and ABX Free 18-64 YRS Unknown Completed [facility] Influenza Virus Vaccine Unknown Completed [facility] Influenza Virus Vaccine Quad .5 mL IM 6+ MO (FLUZONE/FLULAVAL/F LUARIX) Unknown Completed [facility] TDAP (ADACEL) VACCINE Unknown Completed [facility] Influenza Virus Vaccine Recomb Quad IM, Preserv and ABX Free 18-64 YRS Unknown Completed [facility] Influenza Virus Vaccine Unknown Completed [facility] Influenza Virus Vaccine Quad .5 mL IM 6+ MO (FLUZONE/FLULAVAL/F LUARIX) Unknown Completed [facility] TDAP (ADACEL) VACCINE Unknown Completed [facility] Influenza Virus Vaccine Recomb Quad IM, Preserv and ABX Free 18-64 YRS Unknown Completed [facility] Influenza Virus Vaccine Unknown Completed [facility] Influenza Virus Vaccine Quad .5 mL IM 6+ MO (FLUZONE/FLULAVAL/F LUARIX) Unknown Completed [facility] TDAP (ADACEL) VACCINE Unknown Completed [facility] Influenza Virus Vaccine Recomb Quad IM, Preserv and ABX Free 18-64 YRS Unknown Completed [facility] Influenza Virus Vaccine Unknown Completed [facility] Influenza Virus Vaccine Quad .5 mL IM 6+ MO (FLUZONE/FLULAVAL/F LUARIX) Unknown Completed [facility] TDAP (ADACEL) VACCINE Unknown Completed [facility] Influenza Virus Vaccine Recomb Quad IM, Preserv and ABX Free 18-64 YRS Unknown Completed [facility] Influenza Virus Vaccine Unknown Completed [facility] Influenza Virus Vaccine Quad .5 mL IM 6+ MO (FLUZONE/FLULAVAL/F LUARIX) Unknown Completed [facility] TDAP (ADACEL) VACCINE Unknown Completed [facility] Influenza Virus Vaccine Recomb Quad IM, Preserv and ABX Free 18-64 YRS Unknown Completed [facility] Influenza Virus Vaccine Unknown Completed [facility] Influenza Virus Vaccine Quad .5 mL IM 6+ MO (FLUZONE/FLULAVAL/F LUARIX) Unknown Completed [facility] TDAP (ADACEL) VACCINE Unknown Completed [facility] Influenza Virus Vaccine Recomb Quad IM, Preserv and ABX Free 18-64 YRS Unknown Completed [facility] Influenza Virus Vaccine Unknown Completed [facility] Influenza Virus Vaccine Quad .5 mL IM 6+ MO (FLUZONE/FLULAVAL/F LUARIX) Unknown Completed [facility] TDAP (ADACEL) VACCINE Unknown Completed [facility] Influenza Virus Vaccine Recomb Quad IM, Preserv and ABX Free 18-64 YRS Unknown Completed [facility] Influenza Virus Vaccine Unknown Completed [facility] Influenza Virus Vaccine Quad .5 mL IM 6+ MO (FLUZONE/FLULAVAL/F LUARIX) Unknown Completed [facility] TDAP (ADACEL) VACCINE Unknown Completed [facility] Influenza Virus Vaccine Recomb Quad IM, Preserv and ABX Free 18-64 YRS Unknown Completed [facility] Influenza Virus Vaccine Unknown Completed [facility] Influenza Virus Vaccine Quad .5 mL IM 6+ MO (FLUZONE/FLULAVAL/F LUARIX) Unknown Completed [facility] TDAP (ADACEL) VACCINE Unknown Completed [facility] Influenza Virus Vaccine Recomb Quad IM, Preserv and ABX Free 18-64 YRS Unknown Completed [facility] Influenza Virus Vaccine Unknown Completed [facility] Influenza Virus Vaccine Quad .5 mL IM 6+ MO (FLUZONE/FLULAVAL/F LUARIX) Unknown Completed [facility] TDAP (ADACEL) VACCINE Unknown Completed [facility] Influenza Virus Vaccine Recomb Quad IM, Preserv and ABX Free 18-64 YRS Unknown Completed [facility] Influenza Virus Vaccine Unknown Completed [facility] Influenza Virus Vaccine Quad .5 mL IM 6+ MO (FLUZONE/FLULAVAL/F LUARIX) Unknown Completed [facility] TDAP (ADACEL) VACCINE Unknown Completed [facility] Influenza Virus Vaccine Recomb Quad IM, Preserv and ABX Free 18-64 YRS Unknown Completed [facility] Influenza Virus Vaccine Unknown Completed [facility] Influenza Virus Vaccine Quad .5 mL IM 6+ MO (FLUZONE/FLULAVAL/F LUARIX) Unknown Completed [facility] TDAP (ADACEL) VACCINE Unknown Completed [facility] Influenza Virus Vaccine Recomb Quad IM, Preserv and ABX Free 18-64 YRS Unknown Completed [facility] Influenza Virus Vaccine Unknown Completed [facility] Influenza Virus Vaccine Quad .5 mL IM 6+ MO (FLUZONE/FLULAVAL/F LUARIX) Unknown Completed [facility] TDAP (ADACEL) VACCINE Unknown Completed [facility] Influenza Virus Vaccine Recomb Quad IM, Preserv and ABX Free 18-64 YRS Unknown Completed [facility] Influenza Virus Vaccine Unknown Completed [facility] Influenza Virus Vaccine Quad .5 mL IM 6+ MO (FLUZONE/FLULAVAL/F LUARIX) Unknown Completed [facility] TDAP (ADACEL) VACCINE Unknown Completed [facility] Influenza Virus Vaccine Recomb Quad IM, Preserv and ABX Free 18-64 YRS Unknown Completed [facility] Influenza Virus Vaccine Unknown Completed [facility] Influenza Virus Vaccine Quad .5 mL IM 6+ MO (FLUZONE/FLULAVAL/F LUARIX) Unknown Completed [facility] TDAP (ADACEL) VACCINE Unknown Completed [facility] Influenza Virus Vaccine Recomb Quad IM, Preserv and ABX Free 18-64 YRS Unknown Completed [facility] Influenza Virus Vaccine Unknown Completed [facility] Influenza Virus Vaccine Quad .5 mL IM 6+ MO (FLUZONE/FLULAVAL/F LUARIX) Unknown Completed [facility] TDAP (ADACEL) VACCINE Unknown Completed [facility] Influenza Virus Vaccine Recomb Quad IM, Preserv and ABX Free 18-64 YRS Unknown Completed [facility] Influenza Virus Vaccine Unknown Completed [facility] Influenza Virus Vaccine Quad .5 mL IM 6+ MO (FLUZONE/FLULAVAL/F LUARIX) Unknown Completed [facility] TDAP (ADACEL) VACCINE Unknown Completed [facility] Influenza Virus Vaccine Recomb Quad IM, Preserv and ABX Free 18-64 YRS Unknown Completed [facility] Influenza Virus Vaccine Unknown Completed [facility] Influenza Virus Vaccine Quad .5 mL IM 6+ MO (FLUZONE/FLULAVAL/F LUARIX) Unknown Completed [facility] TDAP (ADACEL) VACCINE Unknown Completed [facility] Influenza Virus Vaccine Recomb Quad IM, Preserv and ABX Free 18-64 YRS Unknown Completed [facility] Influenza Virus Vaccine Unknown Completed [facility] Influenza Virus Vaccine Quad .5 mL IM 6+ MO (FLUZONE/FLULAVAL/F LUARIX) Unknown Completed [facility] TDAP (ADACEL) VACCINE Unknown Completed [facility] Influenza Virus Vaccine Recomb Quad IM, Preserv and ABX Free 18-64 YRS Unknown Completed [facility] Influenza Virus Vaccine Unknown Completed [facility] Influenza Virus Vaccine Quad .5 mL IM 6+ MO (FLUZONE/FLULAVAL/F LUARIX) Unknown Completed [facility] TDAP (ADACEL) VACCINE Unknown Completed [facility] Influenza Virus Vaccine Recomb Quad IM, Preserv and ABX Free 18-64 YRS Unknown Completed [facility] Influenza Virus Vaccine Unknown Completed [facility] Influenza Virus Vaccine Quad .5 mL IM 6+ MO (FLUZONE/FLULAVAL/F LUARIX) Unknown Completed [facility] TDAP (ADACEL) VACCINE Unknown Completed [facility] Influenza Virus Vaccine Recomb Quad IM, Preserv and ABX Free 18-64 YRS Unknown Completed [facility] Influenza Virus Vaccine Unknown Completed [facility] Influenza Virus Vaccine Quad .5 mL IM 6+ MO (FLUZONE/FLULAVAL/F LUARIX) Unknown Completed [facility] TDAP (ADACEL) VACCINE Unknown Completed [facility] Influenza Virus Vaccine Recomb Quad IM, Preserv and ABX Free 18-64 YRS Unknown Completed [facility] Influenza Virus Vaccine Unknown Completed [facility] Influenza Virus Vaccine Quad .5 mL IM 6+ MO (FLUZONE/FLULAVAL/F LUARIX) Unknown Completed [facility] TDAP (ADACEL) VACCINE Unknown Completed [facility] Influenza Virus Vaccine Recomb Quad IM, Preserv and ABX Free 18-64 YRS Unknown Completed [facility] Influenza Virus Vaccine Unknown Completed [facility] Influenza Virus Vaccine Quad .5 mL IM 6+ MO (FLUZONE/FLULAVAL/F LUARIX) Unknown Completed [facility] TDAP (ADACEL) VACCINE Unknown Completed [facility] Influenza Virus Vaccine Recomb Quad IM, Preserv and ABX Free 18-64 YRS Unknown Completed [facility] Influenza Virus Vaccine Unknown Completed [facility] Influenza Virus Vaccine Quad .5 mL IM 6+ MO (FLUZONE/FLULAVAL/F LUARIX) Unknown Completed [facility] TDAP (ADACEL) VACCINE Unknown Completed [facility] Influenza Virus Vaccine Recomb Quad IM, Preserv and ABX Free 18-64 YRS Unknown Completed [facility] Influenza Virus Vaccine Unknown Completed [facility] Influenza Virus Vaccine Quad .5 mL IM 6+ MO (FLUZONE/FLULAVAL/F LUARIX) Unknown Completed [facility] TDAP (ADACEL) VACCINE Unknown Completed [facility] Influenza Virus Vaccine Recomb Quad IM, Preserv and ABX Free 18-64 YRS Unknown Completed [facility] Influenza Virus Vaccine Unknown Completed [facility] Influenza Virus Vaccine Quad .5 mL IM 6+ MO (FLUZONE/FLULAVAL/F LUARIX) Unknown Completed [facility] TDAP (ADACEL) VACCINE Unknown Completed [facility] Influenza Virus Vaccine Recomb Quad IM, Preserv and ABX Free 18-64 YRS Unknown Completed [facility] Influenza Virus Vaccine Unknown Completed [facility] Influenza Virus Vaccine Quad .5 mL IM 6+ MO (FLUZONE/FLULAVAL/F LUARIX) Unknown Completed [facility] TDAP (ADACEL) VACCINE Unknown Completed [facility] Influenza Virus Vaccine Recomb Quad IM, Preserv and ABX Free 18-64 YRS Unknown Completed [facility] Influenza Virus Vaccine Unknown Completed [facility] Influenza Virus Vaccine Quad .5 mL IM 6+ MO (FLUZONE/FLULAVAL/F LUARIX) Unknown Completed [facility] TDAP (ADACEL) VACCINE Unknown Completed [facility] Influenza Virus Vaccine Quad .5 mL IM 6+ MO (FLUZONE/FLULAVAL/F LUARIX) Unknown Completed [facility] TDAP (ADACEL) VACCINE Unknown Completed [facility] Influenza Virus Vaccine Quad .5 mL IM 6+ MO (FLUZONE/FLULAVAL/F LUARIX) Unknown Completed [facility] TDAP (ADACEL) VACCINE Unknown Completed [facility] Influenza Virus Vaccine Quad .5 mL IM 6+ MO (FLUZONE/FLULAVAL/F LUARIX) Unknown Completed [facility] TDAP (ADACEL) VACCINE Unknown Completed [facility] Influenza Virus Vaccine Quad .5 mL IM 6+ MO (FLUZONE/FLULAVAL/F LUARIX) Unknown Completed [facility] TDAP (ADACEL) VACCINE Unknown Completed [facility] Influenza Virus Vaccine Quad .5 mL IM 6+ MO (FLUZONE/FLULAVAL/F LUARIX) Unknown Completed [facility] TDAP (ADACEL) VACCINE Unknown Completed [facility] Influenza Virus Vaccine Quad .5 mL IM 6+ MO (FLUZONE/FLULAVAL/F LUARIX) Unknown Completed [facility] TDAP (ADACEL) VACCINE Unknown Completed [facility] Influenza Virus Vaccine Quad .5 mL IM 6+ MO (FLUZONE/FLULAVAL/F LUARIX) Unknown Completed [facility] TDAP (ADACEL) VACCINE Unknown Completed [facility] Influenza Virus Vaccine Quad .5 mL IM 6+ MO (FLUZONE/FLULAVAL/F LUARIX) Unknown Completed [facility] TDAP (ADACEL) VACCINE Unknown Completed [facility] Influenza Virus Vaccine Quad .5 mL IM 6+ MO (FLUZONE/FLULAVAL/F LUARIX) Unknown Completed [facility] TDAP (ADACEL) VACCINE Unknown Completed [facility] Influenza Virus Vaccine Recomb Quad IM, Preserv and ABX Free 18-64 YRS Unknown Completed [facility] Influenza Virus Vaccine Unknown Completed [facility] Influenza Virus Vaccine Quad IM, Preserv and ABX Free 6 MO-64 YRS (FLUCELVAX) Unknown Completed [facility] Influenza Virus Vaccine Quad .5 mL IM 6+ MO (FLUZONE/FLULAVAL/F LUARIX) Unknown Completed [facility] TDAP (ADACEL) VACCINE Unknown Completed [facility] Influenza Virus Vaccine Recomb Quad IM, Preserv and ABX Free 18-64 YRS Unknown Completed [facility] Influenza Virus Vaccine Unknown Completed [facility] Influenza Virus Vaccine Quad IM, Preserv and ABX Free 6 MO-64 YRS (FLUCELVAX) Unknown Completed [facility] Influenza Virus Vaccine Quad .5 mL IM 6+ MO (FLUZONE/FLULAVAL/F LUARIX) Unknown Completed [facility] TDAP (ADACEL) VACCINE Unknown Completed [facility] Influenza Virus Vaccine Recomb Quad IM, Preserv and ABX Free 18-64 YRS Unknown Completed [facility] Influenza Virus Vaccine Unknown Completed [facility] Influenza Virus Vaccine Quad IM, Preserv and ABX Free 6 MO-64 YRS (FLUCELVAX) Unknown Completed [facility] Vital Signs Vital Name Observation Time Observation Value Comments S adeel Systolic blood pressure 2024-05-19 20:32:57 137 mm[Hg] [facility] Diastolic blood pressure 2024-05-19 20:32:57 88 mm[Hg] [facility] Heart rate 2024-05-19 20:32:57 118 /min [facility] Respiratory rate 2024-05-19 20:32:57 18 /min [facility] Oxygen saturation in Arterial blood by Pulse oximetry 2024-05-19 20:32:57 100 /min [facility] Body temperature 2024-05-19 18:41:00 36.39 Irene [facility] Body height 2024-05-19 18:41:00 154.9 cm [facility] Body weight 2024-05-19 18:41:00 52.164 kg [facility] BMI 2024-05-19 18:41:00 21.73 kg/m2 [facility] Systolic blood pressure 2024-04-19 15:51:38 123 mm[Hg] [facility] Diastolic blood pressure 2024-04-19 15:51:38 90 mm[Hg] [facility] Heart rate 2024-04-19 15:51:38 87 /min [facility] Body temperature 2024-04-19 15:51:38 36.78 Irene [facility] Respiratory rate 2024-04-19 15:51:38 14 /min [facility] Oxygen saturation in Arterial blood by Pulse oximetry 2024-04-19 15:51:38 100 /min [facility] Body height 2024-04-19 13:54:00 154.9 cm [facility] Body weight 2024-04-19 13:54:00 54.432 kg [facility] BMI 2024-04-19 13:54:00 22.67 kg/m2 [facility] Systolic blood pressure 2024-04-12 20:00:00 119 mm[Hg] [facility] Diastolic blood pressure 2024-04-12 20:00:00 80 mm[Hg] [facility] Heart rate 2024-04-12 20:00:00 88 /min [facility] Respiratory rate 2024-04-12 20:00:00 18 /min [facility] Oxygen saturation in Arterial blood by Pulse oximetry 2024-04-12 20:00:00 99 /min [facility] Body temperature 2024-04-12 19:00:00 36.67 Irene [facility] Body height 2024-04-12 17:57:10 154.9 cm [facility] Body weight 2024-04-12 17:57:10 54.432 kg [facility] BMI 2024-04-12 17:57:10 22.67 kg/m2 [facility] Systolic blood pressure 2024-04-12 16:25:00 124 mm[Hg] [facility] [facility] blood pressure 2024-04-12 16:25:00 95 mm[Hg] [facility] Heart rate 2024-04-12 16:25:00 106 /min [facility] Body temperature 2024-04-12 16:25:00 37.17 Irene [facility] Respiratory rate 2024-04-12 16:25:00 18 /min [facility] Oxygen saturation in Arterial blood by Pulse oximetry 2024-04-12 16:25:00 100 /min [facility] Body height 2024-04-12 15:25:00 154.9 cm [facility] Body weight 2024-04-12 15:25:00 54.432 kg [facility] BMI 2024-04-12 15:25:00 22.67 kg/m2 [facility] Systolic blood pressure 2024-03-13 13:25:00 129 mm[Hg] [facility] Diastolic blood pressure 2024-03-13 13:25:00 87 mm[Hg] [facility] Heart rate 2024-03-13 13:25:00 116 /min [facility] Body temperature 2024-03-13 13:25:00 35.61 Irene [facility] Respiratory rate 2024-03-13 13:25:00 20 /min [facility] Oxygen saturation in Arterial blood by Pulse oximetry 2024-03-13 13:25:00 94 /min [facility] Body height 2024-03-10 14:43:00 154.9 cm [facility] Body weight 2024-03-10 14:43:00 44.453 kg [facility] BMI 2024-03-10 14:43:00 18.52 kg/m2 [facility] Systolic blood pressure 2024-03-05 16:10:00 142 mm[Hg] [facility] Diastolic blood pressure 2024-03-05 16:10:00 87 mm[Hg] [facility] Heart rate 2024-03-05 16:10:00 94 /min [facility] Body temperature 2024-03-05 16:10:00 37 Irene [facility] Respiratory rate 2024-03-05 16:10:00 16 /min [facility] Oxygen saturation in Arterial blood by Pulse oximetry 2024-03-05 16:10:00 100 /min [facility] Body height 2024-03-04 11:42:00 154.9 cm [facility] Body weight 2024-03-04 11:42:00 45.36 kg [facility] BMI 2024-03-04 11:42:00 18.89 kg/m2 [facility] Systolic blood pressure 2024-02-27 17:17:00 138 mm[Hg] [facility] Diastolic blood pressure 2024-02-27 17:17:00 91 mm[Hg] [facility] Heart rate 2024-02-27 17:17:00 97 /min [facility] Body temperature 2024-02-27 17:17:00 36.67 Irene [facility] Respiratory rate 2024-02-27 17:17:00 16 /min [facility] Oxygen saturation in Arterial blood by Pulse oximetry 2024-02-27 17:17:00 99 /min [facility] Body height 2024-02-27 13:16:00 154.9 cm [facility] Body weight 2024-02-27 13:16:00 45.36 kg [facility] BMI 2024-02-27 13:16:00 18.89 kg/m2 [facility] Systolic blood pressure 2024-02-27 15:50:00 122 mm[Hg] [facility] Diastolic blood pressure 2024-02-27 15:50:00 81 mm[Hg] [facility] Heart rate 2024-02-27 15:50:00 102 /min [facility] Respiratory rate 2024-02-27 15:50:00 13 /min [facility] Oxygen saturation in Arterial blood by Pulse oximetry 2024-02-27 15:50:00 98 /min [facility] Body temperature 2024-02-27 15:20:00 36 Irene [facility] Body height 2024-02-27 13:16:00 154.9 cm [facility] Body weight 2024-02-27 13:16:00 45.36 kg [facility] BMI 2024-02-27 13:16:00 18.89 kg/m2 [facility] Systolic blood pressure 2023-05-19 17:24:00 129 mm[Hg] [facility] Diastolic blood pressure 2023-05-19 17:24:00 83 mm[Hg] [facility] Heart rate 2023-05-19 17:24:00 77 /min [facility] Respiratory rate 2023-05-19 17:24:00 15 /min [facility] Oxygen saturation in Arterial blood by Pulse oximetry 2023-05-19 17:24:00 100 /min [facility] Body temperature 2023-05-19 14:50:00 37.28 Irene [facility] Body height 2023-05-19 14:50:00 154.9 cm [facility] Body weight 2023-05-19 14:50:00 58.968 kg [facility] BMI 2023-05-19 14:50:00 24.56 kg/m2 [facility] Systolic blood pressure 2023-01-15 16:56:00 132 mm[Hg] [facility] Diastolic blood pressure 2023-01-15 16:56:00 91 mm[Hg] [facility] Heart rate 2023-01-15 16:56:00 67 /min [facility] Body temperature 2023-01-15 16:56:00 36.78 Irene [facility] Respiratory rate 2023-01-15 16:56:00 20 /min [facility] Oxygen saturation in Arterial blood by Pulse oximetry 2023-01-15 16:56:00 100 /min [facility] Body height 2023-01-12 09:05:00 154.9 cm [facility] Body weight 2023-01-12 09:05:00 58.968 kg [facility] BMI 2023-01-12 09:05:00 24.56 kg/m2 [facility] Systolic blood pressure 2022-11-21 21:40:00 122 mm[Hg] [facility] Diastolic blood pressure 2022-11-21 21:40:00 90 mm[Hg] [facility] Heart rate 2022-11-21 21:40:00 92 /min [facility] Respiratory rate 2022-11-21 21:40:00 16 /min [facility] Oxygen saturation in Arterial blood by Pulse oximetry 2022-11-21 21:40:00 99 /min [facility] Body temperature 2022-11-21 18:07:00 37.28 Irene [facility] Body weight 2022-11-21 18:07:00 68.04 kg [facility] BMI 2022-11-21 18:07:00 28.34 kg/m2 [facility] Systolic blood pressure 2022-09-05 17:22:00 139 mm[Hg] [facility] Diastolic blood pressure 2022-09-05 17:22:00 91 mm[Hg] [facility] Heart rate 2022-09-05 17:22:00 120 /min [facility] Respiratory rate 2022-09-05 17:22:00 18 /min [facility] Oxygen saturation in Arterial blood by Pulse oximetry 2022-09-05 17:22:00 99 /min [facility] Body temperature 2022-09-05 13:43:00 37.11 Irene [facility] Body weight 2022-09-05 13:43:00 68.04 kg [facility] BMI 2022-09-05 13:43:00 28.34 kg/m2 [facility] Systolic blood pressure 2022-08-01 00:49:00 138 mm[Hg] [facility] Diastolic blood pressure 2022-08-01 00:49:00 104 mm[Hg] [facility] Heart rate 2022-08-01 00:49:00 108 /min [facility] Respiratory rate 2022-08-01 00:49:00 18 /min [facility] Oxygen saturation in Arterial blood by Pulse oximetry 2022-08-01 00:49:00 99 /min [facility] Body temperature 2022-07-31 22:52:00 37.11 Irene [facility] Body height 2022-07-31 22:52:00 154.9 cm [facility] Body weight 2022-07-31 22:52:00 68.04 kg [facility] BMI 2022-07-31 22:52:00 28.34 kg/m2 [facility] Systolic blood pressure 2022-07-15 15:32:00 130 mm[Hg] [facility] Diastolic blood pressure 2022-07-15 15:32:00 90 mm[Hg] [facility] Heart rate 2022-07-15 15:31:00 81 /min [facility] Body temperature 2022-07-15 15:31:00 36.94 Irene [facility] Respiratory rate 2022-07-15 15:31:00 16 /min [facility] Body weight 2022-07-15 15:31:00 68.493 kg [facility] BMI 2022-07-15 15:31:00 28.53 kg/m2 [facility] Oxygen saturation in Arterial blood by Pulse oximetry 2022-07-15 15:31:00 99 /min [facility] Systolic blood pressure 2022-06-23 15:26:00 111 mm[Hg] [facility] Diastolic blood pressure 2022-06-23 15:26:00 75 mm[Hg] [facility] Heart rate 2022-06-23 15:26:00 108 /min [facility] Body temperature 2022-06-23 15:26:00 36.83 Irene [facility] Respiratory rate 2022-06-23 15:26:00 18 /min [facility] Body height 2022-06-23 15:26:00 154.9 cm [facility] Body weight 2022-06-23 15:26:00 71.385 kg [facility] BMI 2022-06-23 15:26:00 29.74 kg/m2 [facility] Oxygen saturation in Arterial blood by Pulse oximetry 2022-06-23 15:26:00 99 /min [facility] Systolic blood pressure 2022-05-05 22:05:00 126 mm[Hg] [facility] Diastolic blood pressure 2022-05-05 22:05:00 75 mm[Hg] [facility] Heart rate 2022-05-05 22:05:00 99 /min [facility] Respiratory rate 2022-05-05 22:05:00 16 /min [facility] Oxygen saturation in Arterial blood by Pulse oximetry 2022-05-05 22:05:00 99 /min [facility] Body temperature 2022-05-05 18:24:00 37.11 Irene [facility] Body height 2022-05-05 18:24:00 154.9 cm [facility] Body weight 2022-05-05 18:24:00 54.432 kg [facility] BMI 2022-05-05 18:24:00 22.67 kg/m2 [facility] Systolic blood pressure 2022-04-26 14:28:00 135 mm[Hg] [facility] Diastolic blood pressure 2022-04-26 14:28:00 95 mm[Hg] [facility] Heart rate 2022-04-26 14:28:00 93 /min [facility] Body temperature 2022-04-26 14:28:00 36.89 Irene [facility] Respiratory rate 2022-04-26 14:28:00 18 /min [facility] Body height 2022-04-26 14:28:00 154.9 cm [facility] Body weight 2022-04-26 14:28:00 54.432 kg [facility] BMI 2022-04-26 14:28:00 22.67 kg/m2 [facility] Oxygen saturation in Arterial blood by Pulse oximetry 2022-04-26 14:28:00 100 /min [facility] Systolic blood pressure 2022-04-26 00:21:00 151 mm[Hg] [facility] Diastolic blood pressure 2022-04-26 00:21:00 98 mm[Hg] [facility] Heart rate 2022-04-26 00:21:00 98 /min [facility] Body temperature 2022-04-26 00:21:00 36.72 Irene [facility] Respiratory rate 2022-04-26 00:21:00 18 /min [facility] Body height 2022-04-26 00:21:00 154.9 cm [facility] Body weight 2022-04-26 00:21:00 54.432 kg [facility] BMI 2022-04-26 00:21:00 22.67 kg/m2 [facility] Oxygen saturation in Arterial blood by Pulse oximetry 2022-04-26 00:21:00 100 /min [facility] Systolic blood pressure 2022-04-09 14:39:00 122 mm[Hg] [facility] Diastolic blood pressure 2022-04-09 14:39:00 84 mm[Hg] [facility] Heart rate 2022-04-09 14:39:00 96 /min [facility] Body height 2022-04-09 14:39:00 154.9 cm [facility] Body weight 2022-04-09 14:39:00 60.328 kg [facility] BMI 2022-04-09 14:39:00 25.13 kg/m2 [facility] Oxygen saturation in Arterial blood by Pulse oximetry 2022-04-09 14:39:00 98 /min [facility] Systolic blood pressure 2022-04-07 22:43:36 131 mm[Hg] [facility] Diastolic blood pressure 2022-04-07 22:43:36 83 mm[Hg] [facility] Heart rate 2022-04-07 22:43:36 113 /min [facility] Respiratory rate 2022-04-07 22:43:36 18 /min [facility] Oxygen saturation in Arterial blood by Pulse oximetry 2022-04-07 22:43:36 97 /min [facility] Body temperature 2022-04-07 19:41:00 37.17 Irene [facility] Body height 2022-04-07 19:41:00 154.9 cm [facility] Body weight 2022-04-07 19:41:00 60.328 kg [facility] BMI 2022-04-07 19:41:00 25.13 kg/m2 [facility] Systolic blood pressure 2022-03-24 19:00:00 125 mm[Hg] [facility] Diastolic blood pressure 2022-03-24 19:00:00 86 mm[Hg] [facility] Heart rate 2022-03-24 19:00:00 93 /min [facility] Respiratory rate 2022-03-24 19:00:00 17 /min [facility] Oxygen saturation in Arterial blood by Pulse oximetry 2022-03-24 19:00:00 97 /min [facility] Body temperature 2022-03-24 13:33:00 36.78 Irene [facility] Systolic blood pressure 2022-03-15 19:23:00 128 mm[Hg] [facility] Diastolic blood pressure 2022-03-15 19:23:00 89 mm[Hg] [facility] Heart rate 2022-03-15 19:23:00 104 /min [facility] Body weight 2022-03-15 19:23:00 60.328 kg [facility] BMI 2022-03-15 19:23:00 25.13 kg/m2 [facility] Oxygen saturation in Arterial blood by Pulse oximetry 2022-03-15 19:23:00 98 /min [facility] Systolic blood pressure 2022-03-15 15:02:00 115 mm[Hg] [facility] Diastolic blood pressure 2022-03-15 15:02:00 70 mm[Hg] [facility] Heart rate 2022-03-15 15:02:00 85 /min [facility] Respiratory rate 2022-03-15 15:02:00 20 /min [facility] Oxygen saturation in Arterial blood by Pulse oximetry 2022-03-15 15:02:00 99 /min [facility] Body temperature 2022-03-15 13:38:00 36.94 Irene [facility] Body height 2022-03-15 13:38:00 154.9 cm [facility] Body weight 2022-03-15 13:38:00 54.432 kg [facility] BMI 2022-03-15 13:38:00 22.67 kg/m2 [facility] Systolic blood pressure 2022-03-11 16:30:00 124 mm[Hg] [facility] Diastolic blood pressure 2022-03-11 16:30:00 88 mm[Hg] [facility] Heart rate 2022-03-11 16:30:00 93 /min [facility] Body temperature 2022-03-11 16:30:00 36.67 Irene [facility] Respiratory rate 2022-03-11 16:30:00 14 /min [facility] Oxygen saturation in Arterial blood by Pulse oximetry 2022-03-11 16:30:00 100 /min [facility] Body height 2022-03-11 14:19:00 154.9 cm [facility] Body weight 2022-03-11 14:19:00 58.968 kg [facility] BMI 2022-03-11 14:19:00 24.56 kg/m2 [facility] Systolic blood pressure 2022-02-27 14:14:00 140 mm[Hg] [facility] Diastolic blood pressure 2022-02-27 14:14:00 90 mm[Hg] [facility] Heart rate 2022-02-27 14:14:00 103 /min [facility] Body height 2022-02-27 14:14:00 154.9 cm [facility] Body weight 2022-02-27 14:14:00 59.194 kg [facility] BMI 2022-02-27 14:14:00 24.66 kg/m2 [facility] Oxygen saturation in Arterial blood by Pulse oximetry 2022-02-27 14:14:00 100 /min [facility] Systolic blood pressure 2022-02-27 13:19:00 131 mm[Hg] [facility] Diastolic blood pressure 2022-02-27 13:19:00 86 mm[Hg] [facility] Heart rate 2022-02-27 13:19:00 102 /min [facility] Body temperature 2022-02-27 13:19:00 36.33 Irene [facility] Body height 2022-02-27 13:19:00 154.9 cm [facility] Body weight 2022-02-27 13:19:00 58.968 kg [facility] BMI 2022-02-27 13:19:00 24.56 kg/m2 [facility] Oxygen saturation in Arterial blood by Pulse oximetry 2022-02-27 13:19:00 99 /min [facility] Systolic blood pressure 2022-02-21 08:06:00 135 mm[Hg] [facility] Diastolic blood pressure 2022-02-21 08:06:00 97 mm[Hg] [facility] Heart rate 2022-02-21 08:06:00 98 /min [facility] Respiratory rate 2022-02-21 08:06:00 16 /min [facility] Oxygen saturation in Arterial blood by Pulse oximetry 2022-02-21 08:06:00 97 /min [facility] Body temperature 2022-02-21 06:16:00 36.94 Irene [facility] Body height 2022-02-21 06:16:00 154.9 cm [facility] Body weight 2022-02-21 06:16:00 60.963 kg [facility] BMI 2022-02-21 06:16:00 25.39 kg/m2 [facility] Systolic blood pressure 2022 20:08:00 136 mm[Hg] [facility] Diastolic blood pressure 2022 20:08:00 96 mm[Hg] [facility] Heart rate 2022 20:08:00 100 /min [facility] Respiratory rate 2022 20:08:00 20 /min [facility] Oxygen saturation in Arterial blood by Pulse oximetry 2022 20:08:00 98 /min [facility] Body temperature 2022 16:56:00 37.06 Irene [facility] Body weight 2022 16:56:00 54.432 kg [facility] BMI 2022 16:56:00 22.67 kg/m2 [facility] Systolic blood pressure 2022-02-05 14:31:00 128 mm[Hg] [facility] Diastolic blood pressure 2022-02-05 14:31:00 84 mm[Hg] [facility] Heart rate 2022-02-05 14:31:00 86 /min [facility] Body temperature 2022-02-05 14:31:00 37.89 Irene [facility] Respiratory rate 2022-02-05 14:31:00 18 /min [facility] Body height 2022-02-05 14:31:00 154.9 cm [facility] Body weight 2022-02-05 14:31:00 54.432 kg [facility] BMI 2022-02-05 14:31:00 22.67 kg/m2 [facility] Oxygen saturation in Arterial blood by Pulse oximetry 2022-02-05 14:31:00 98 /min [facility] Systolic blood pressure 2022-01-18 14:50:00 144 mm[Hg] [facility] Diastolic blood pressure 2022-01-18 14:50:00 92 mm[Hg] [facility] Heart rate 2022-01-18 14:50:00 94 /min [facility] Respiratory rate 2022-01-18 14:50:00 20 /min [facility] Oxygen saturation in Arterial blood by Pulse oximetry 2022-01-18 14:50:00 99 /min [facility] Body weight 2022-01-18 10:18:00 54.432 kg [facility] BMI 2022-01-18 10:18:00 22.67 kg/m2 [facility] Body temperature 2022-01-18 10:15:00 36.72 Irene [facility] Systolic blood pressure 2022-01-15 15:48:26 125 mm[Hg] [facility] Diastolic blood pressure 2022-01-15 15:48:26 85 mm[Hg] [facility] Heart rate 2022-01-15 15:48:26 95 /min [facility] Respiratory rate 2022-01-15 15:48:26 18 /min [facility] Oxygen saturation in Arterial blood by Pulse oximetry 2022-01-15 15:48:26 98 /min [facility] Body temperature 2022-01-15 13:32:00 37.11 Irene [facility] Body height 2022-01-15 13:32:00 154.9 cm [facility] Body weight 2022-01-15 13:32:00 54.432 kg [facility] BMI 2022-01-15 13:32:00 22.67 kg/m2 [facility] Systolic blood pressure 2022-01-09 00:37:11 127 mm[Hg] [facility] Diastolic blood pressure 2022-01-09 00:37:11 90 mm[Hg] [facility] Heart rate 2022-01-09 00:37:11 94 /min [facility] Body temperature 2022-01-09 00:37:11 37.11 Irene [facility] Respiratory rate 2022-01-09 00:37:11 16 /min [facility] Oxygen saturation in Arterial blood by Pulse oximetry 2022-01-09 00:37:11 97 /min [facility] Body height 2022-01-08 23:03:00 154.9 cm [facility] Body weight 2022-01-08 23:03:00 58.06 kg [facility] BMI 2022-01-08 23:03:00 24.19 kg/m2 [facility] Systolic blood pressure 2021-12-12 18:00:00 126 mm[Hg] [facility] Diastolic blood pressure 2021-12-12 18:00:00 87 mm[Hg] [facility] Heart rate 2021-12-12 18:00:00 86 /min [facility] Body temperature 2021-12-12 18:00:00 36.89 Irene [facility] Respiratory rate 2021-12-12 18:00:00 18 /min [facility] Body height 2021-12-12 18:00:00 154.9 cm [facility] Body weight 2021-12-12 18:00:00 57.153 kg [facility] BMI 2021-12-12 18:00:00 23.81 kg/m2 [facility] Systolic blood pressure 2023-01-14 16:32:00 138 mm[Hg] [facility] Diastolic blood pressure 2023-01-14 16:32:00 84 mm[Hg] [facility] Heart rate 2023-01-14 16:32:00 67 /min [facility] Body temperature 2023-01-14 16:32:00 36.5 Irene [facility] Respiratory rate 2023-01-14 16:32:00 16 /min [facility] Oxygen saturation in Arterial blood by Pulse oximetry 2023-01-14 16:32:00 99 /min [facility] Body height 2023-01-12 09:05:00 154.9 cm [facility] Body weight 2023-01-12 09:05:00 58.968 kg [facility] BMI 2023-01-12 09:05:00 24.56 kg/m2 [facility] Procedures Procedure Date / Time Performed Performing Clinician Source POCT TEST 2024-05-19 20:10:00 Anamaria Gonzales [facility] L[facility]24-05[facility]96205[facility]24-05-19 [facility]24-05-19 [facility]24-05-19 19:53:[address] [facility] ABDOMEN PELVIS WO CONTRAST 2024-04-19 14:51:33 Rosendo Levy [facility] POCT TEST 2024-04-19 14:21:00 Rosendo Levy [facility] LIPASE 2024-04-19 14:18:00 Rosendo Levy [facility] COMP. METABOLIC PANEL ([id number]) 2024-04-19 14:18:00 Rosendo Levy [facility] CBC WITH DIFF 2024-04-19 14:18:00 Rosendo Levy [facility] URINALYSIS 2024-04-19 14:18:00 Rosendo Levy [facility] XR ANKLE <3 VW LEFT 2024-04-12 18:36:00 Neeta Ureña [facility] XR FOOT <3 VW LEFT 2024-04-12 18:36:00 Niranjan Neeta [facility] XR TIBIA FIBULA 2 VW LEFT 2024-04-12 18:36:00 Neeta Ureña [facility] CT TRAUMA HEAD WO CONTRAST 2024-04-12 18:27:49 Neeta Ureña [facility] CT TRAUMA CERVICAL SPINE WO CONTRAST 2024-04-12 18:27:49 Neeta Ureña [facility] CT TRAUMA THORACIC SPINE WO CONTRAST 2024-04-12 18:27:49 Neeta Ureña [facility] CT TRAUMA LUMBAR SPINE WO CONTRAST 04-12 18:27:49 Neeta Ureña [facility] XR CHEST 1 VW 2024-04-12 15:50:27 Maggie Hamilton [facility] COMP. METABOLIC PANEL ([id number]) 2024-04-12 15:43:00 Maggie Hamilton [facility] CBC WITH DIFF 2024-04-12 15:43:00 Maggie Hamilton [facility] HB ABO GROUPING 2024-04-12 15:43:00 Maggie Hamilton [facility] ER FAST ULTRASOUND 2024-04-12 15:36:51 Maggie Hamilton [facility] MAGNESIUM 2024-03-13 10:20:00 Ellis Burgess [facility] BASIC METABOLIC PANEL (NA, K , CL, CO2, GLUCOSE, BUN, CREATININE, CA) 2024-03-13 10:20:00 Ellis Burgess [facility] CBC WITH DIFF 2024-03-13 10:20:00 Ellis Burgess [facility] FECAL PATHOGENS BY PCR 2024-03-12 17:51:00 [facility] CLOSTRIDIUM DIFFICILE TOXIN 2024-03-12 17:50:00 [facility] LAB ONLY C. DIFFICILE TOXIN B GENE (TCDB) BY PCR 2024-03-12 17:50:00 [facility] SUPERIOR MESENTERIC ARTERY D UPLEX - BY VASCULAR LAB 2024-03-12 14:06:02 Edilia Crewsnifer [facility] MAGNESIUM 2024-03-12 11:14:00 [facility]OL[facility]EL (NA, K , CL, CO2, GLUCOSE, BUN, CREATININE, CA) 2024-03-12 11:14:00 [facility] CBC WITHOUT DIFF 2024-03-12 11:14:00 [facility] 2024-03-11 10:47:00 [facility] (NA, K , CL, CO2, GLUCOSE, BUN, CREATININE, CA) 2024-03-11 10:47:[address] [facility] CBC WITH DIFF 2024-03-11 10:47:[address] [facility] CT ABDOMEN PELVIS WO CONTRAST 2024-03-10 19:46:10 Venkat [facility] LIPASE 2024-03-10 15:42:00 Venkat [facility] TEST, SERUM 2024-03-10 15:42:00 Fidel [facility] COMP. METABOLIC PANEL (15922) 2024-03-10 15:42:00 Venkat [facility] URINE DRUG (IMMUNOASSAY) - COMPREHENSIVE DRUG SCREEN 2024-03-10 15:42:[address] [facility] CBC WITH DIFF 2024-03-10 15:42:00 Venkat [facility] URINALYSIS 2024-03-10 15:42:00 Venkat [facility] EXTRA TUBE DK. GREEN 2024-03-10 15:42:00 Fidel [facility] CT ABDOMEN PELVIS WO CONTRAST 2024-03-04 13:43:16 Alexander Richard [facility] POCT TEST 2024-03-04 13:14:00 Alexander Richard [facility] LIPASE 2024-03-04 13:13:00 Alexander Richard [facility] COMP. METABOLIC PANEL (07273) 2024-03-04 13:13:00 Alexander Richard [facility] CBC WITH DIFF 2024-03-04 13:13:00 Alexander Richard [facility] URINALYSIS 2024-03-04 13:13:00 Alexander Richard [facility] ENDOSCOPY PROCEDURE DOCUMENTATION 2023-05 0-18 14:46:53 Doctor Unassigned, [place] [facility] FLEXIBLE SIGMOIDOSCOPY (ENDO) 2024-02-27 15:42:37 Hany Lee [facility] FLEXIBLE SIGMOIDOSCOPY (ENDO) 2024-02-27 15:42:37 Hany Lee [facility] EGD (ENDO) 2024-02-27 15:39:44 Hany Lee [facility] EGD (ENDO) 2024-02-27 15:39:44 Hany Lee [facility] ESOPHAGOGASTRODUODENOSCOPY 2024-02-27 14:11:00 Jas Buenrostro [facility] FLEXIBLE SIGMOIDOSCOPY 2024-02-27 14:11:00 Jas Buenrostro [facility] MAGNESIUM 2024-02-27 09:37:00 Jose Carlos Urbina [facility] HEPATIC FUNCTION PANEL (8007 6) (ALB,T.PRO,BILI T,BU/BC,ALT,AST,ALK PHOS) 2024-02-27 09:37:00 Jose Carlos Urbina [facility] BASIC METABOLIC PANEL (NA, K , CL, CO2, GLUCOSE, BUN, CREATININE, CA) 2024-02-27 09:37:00 Jose Carlos Urbina [facility] CBC WITH DIFF 2024-02-27 09:37:00 Jose Carlos Urbina [facility] MAGNESIUM 2024-02-27 09:37:00 Jose Carlos Urbina [facility] HEPATIC FUNCTION PANEL (8007 6) (ALB,T.PRO,BILI T,BU/BC,ALT,AST,ALK PHOS) 2024-02-27 09:37:00 Jose Carlos Urbina [facility] BASIC METABOLIC PANEL (NA, K , CL, CO2, GLUCOSE, BUN, CREATININE, CA) 2024-02-27 09:37:00 Jose Carlos Urbina [facility] CBC WITH DIFF 2024-02-27 09:37:00 Jose Carlos Urbina [facility] CALPROTECTIN, FECAL 2024-02-26 22:49:00 Jose Carlos Urbina [facility] CALPROTECTIN, FECAL 2024-02-26 22:49:00 Jose Carlos Urbina [facility] XR KUB 2024-02-26 20:00:00 Jose Carlos Urbina [facility] XR KUB 2024-02-26 20:00:00 Jose Carlos Urbina [facility] MAGNESIUM 2024-02-26 16:17:00 Chitra [facility] HEPATIC FUNCTION PANEL (8007 6) (ALB,T.PRO,BILI T,BU/BC,ALT,AST,ALK PHOS) 2024-02-26 16:17:00 Chitra [facility] BASIC METABOLIC PANEL (NA, K , CL, CO2, GLUCOSE, BUN, CREATININE, CA) 2024-02-26 16:17:00 Chitra [facility] PROTHROMBIN TIME / INR 2024-02-26 16:17:00 Chitra [facility] MAGNESIUM 2024-02-26 16:17:00 Chitra [facility] HEPATIC FUNCTION PANEL (8007 6) (ALB,T.PRO,BILI T,BU/BC,ALT,AST,ALK PHOS) 2024-02-26 16:17:00 Chitra [facility] BASIC METABOLIC PANEL (NA, K , CL, CO2, GLUCOSE, BUN, CREATININE, CA) 2024-02-26 16:17:00 Chitra [facility] PROTHROMBIN TIME / INR 2024-02-26 16:17:00 Chit[facility] MR ABDOMEN W WO CONTRAST MRCP 2024-02-25 17:15:21 Chit[facility] MR ABDOMEN W WO CONTRAST MRCP 2024-02-25 17:15:21 Chitra [facility] CREATINE KINASE 2024-02-25 10:52:00 Chitra [facility] HEPATIC FUNCTION PANEL (8007 6) (ALB,T.PRO,BILI T,BU/BC,ALT,AST,ALK PHOS) 2024-02-25 10:52:00 Jose Carlos Urbina [facility] BASIC METABOLIC PANEL (NA, K , CL, CO2, GLUCOSE, BUN, CREATININE, CA) 2024-02-25 10:52:00 Jose Carlos Urbina [facility] CREATINE KINASE 2024-02-25 10:52:00 Chitra [facility] HEPATIC FUNCTION PANEL (8007 6) (ALB,T.PRO,BILI T,BU/BC,ALT,AST,ALK PHOS) 2024-02-25 10:52:00 Jose Carlos Urbina [facility] BASIC METABOLIC PANEL (NA, K , CL, CO2, GLUCOSE, BUN, CREATININE, CA) 2024-02-25 10:52:00 Jose Carlos Urbina [facility] MAGNESIUM 2024-02-24 09:54:00 Naty Buenrostro [facility] HEPATIC FUNCTION PANEL (8007 6) (ALB,T.PRO,BILI T,BU/BC,ALT,AST,ALK PHOS) 2024-02-24 09:54:00 Jose Carlos Urbina [facility] BASIC METABOLIC PANEL (NA, K , CL, CO2, GLUCOSE, BUN, CREATININE, CA) 2024-02-24 09:54:00 Jose Carlos Urbina [facility] CBC WITH DIFF 2024-02-24 09:54:00 Naty Buenrostro [facility] MAGNESIUM 2024-02-24 09:54:00 [facility] (8007 6) (ALB,T.PRO,BILI T,BU/BC,ALT,AST,ALK PHOS) 2024-02-24 09:54:00 Jose Carlos Urbina [facility] BASIC METABOLIC PANEL (NA, K , CL, CO2, GLUCOSE, BUN, CREATININE, CA) 2024-02-24 09:54:00 Jose Carlos Urbina [facility] CBC WITH DIFF 2024-02-24 09:54:00 Naty Buenrostro [facility] POCT GLUCOSE (AUTOMATED) 2024-02-24 01:34:00 Hany Lee [facility] POCT GLUCOSE (AUTOMATED) 2024-02-24 01:34:00 Hany Lee [facility] HEPATIC FUNCTION PANEL (8007 6) (ALB,T.PRO,BILI T,BU/BC,ALT,AST,ALK PHOS) 2024-02-23 17:51:00 [facility] CBC WITH DIFF 2024-02-23 17:51:00 Chitra [facility] HAV ANTIBODY (IGG AND IGM) 2024-02-23 17:51:00 [facility] ENDOMYSIAL AB, IGA BY IFA 2024-02-23 17:51:00 [facility] VITAMIN D, 25-OH 2024-02-23 17:51:00 Chitra [facility] HEPATIC FUNCTION PANEL (8007 6) (ALB,T.PRO,BILI T,BU/BC,ALT,AST,ALK PHOS) 2024-02-23 17:51:00 Chit[facility] CBC WITH DIFF 2024-02-23 17:51:00 Chitra [facility] HAV ANTIBODY (IGG AND IGM) 2024-02-23 17:51:00 Chit[facility] ENDOMYSIAL AB, IGA BY IFA 2024-02-23 17:51:00 Ch[facility] VITAMIN D, 25-OH 2024-02-23 17:51:00 Ch[facility] INFLUENZA A/B RSV COVID NAAT 2024-02-22 20:12:00 Chitra [facility] LAB ONLY COVID INTERPRETATION 2024-02-22 20:12:00 Chitra [facility] INFLUENZA A/B RSV COVID NAAT 2024-02-22 20:12:00 Chitra [facility] LAB ONLY COVID INTERPRETATION 2024-02-22 20:12:00 Chitra [facility] XR CHEST 2 VW 2024-02-22 17:16:00 Cataño, Adriana [facility] XR CHEST 2 VW 2024-02-22 17:16:00 Cataño, Adriana [facility] US ABDOMEN LIMITED 2024-02-22 16:59:52 Cataño, Adriana [facility] US ABDOMEN LIMITED 2024-02-22 16:59:52 [facility] 2024-02-22 15:19:00 Stephanie Lou, [facility] TEST, SERUM 2024-02-22 15:19:00 Stephanie Lou [facility] C-REACTIVE PROTEIN 2024-02-22 15:19:00 [facility] TROPONIN I 2024-02-22 15:19:00 Stephanie Lou [facility] HEPATIC FUNCTION PANEL (8007 6) (ALB,T.PRO,BILI T,BU/BC,ALT,AST,ALK PHOS) 2024-02-22 15:19:00 [facility] COMP. METABOLIC PANEL ([id number]) 2024-02-22 15:19:00 Stephanie oLu [facility] URINE DRUG (IMMUNOASSAY) - COMPREHENSIVE DRUG SCREEN 2024-02-22 15:19:00 Ch[facility] SEDIMENTATION RATE 2024-02-22 15:19:00 Chitra [facility] CBC WITH DIFF 2024-02-22 15:19:00 Stephanie Lou [facility] URINALYSIS 2024-02-22 15:19:00 Stephanie Lou [facility] HEPATITIS B SURFACE ANTIBODY 2024-02-22 15:19:00 Chit[facility] HEPATITIS B SURFACE ANTIGEN 2024-02-22 15:19:00 Chitra [facility] HCV ANTIBODY 2024-02-22 15:19:00 Chitra [facility] HBC ANTIBODY (IGM & IGG) 2024-02-22 15:19:00 Chit[facility] HIV 1/2 AG-AB WITH REFLEX 2024-02-22 15:19:00 Chitra [facility] DEAMIDATED GLIADIN IGG 2024-02-22 15:19:00 Chitra [facility] LIPASE 2024-02-22 15:19:00 Stephanie Lou [facility] TEST, SERUM 2024-02-22 15:19:00 Stephanie Lou [facility] C-REACTIVE PROTEIN 2024-02-22 15:19:00 [facility] TROPONIN [facility] 2024-02-22 15:19:00 Colin Jones [facility] HEPATIC FUNCTION PANEL (8007 6) (ALB,T.PRO,BILI T,BU/BC,ALT,AST,ALK PHOS) 2024-02-22 15:19:00 [facility] COMP. METABOLIC PANEL (51100) 2024-02-22 15:19:00 Colin Jones [facility] URINE DRUG (IMMUNOASSAY) - COMPREHENSIVE DRUG SCREEN 2024-02-22 15:19:00 [facility] SEDIMENTATION RATE 2024-02-22 15:19:00 Chitra [facility] CBC WITH DIFF 2024-02-22 15:19:00 Stephanie Lou [facility] URINALYSIS 2024-02-22 15:19:00 Stephanie Lou [facility] HEPATITIS B SURFACE ANTIBODY 2024-02-22 15:19:00 Chit[facility] HEPATITIS B SURFACE ANTIGEN 2024-02-22 15:19:00 Chitra [facility] HCV ANTIBODY 2024-02-22 15:19:00 Chitra [facility] HBC ANTIBODY (IGM & IGG) 2024-02-22 15:19:00 Chit[facility] HIV 1/2 AG-AB WITH REFLEX 2024-02-22 15:19:00 Chitra [facility] DEAMIDATED GLIADIN IGG 2024-02-22 15:19:00 Chitra [facility] COMP. METABOLIC PANEL ([id number]) 2023-05-19 17:22:00 [facility] CT ABDOMEN PELVIS W CONTRAST 2023-05-19 15:59:54 [facility] LIPASE 2023-05-19 15:43:00 [facility] CBC WITH DIFF 2023-05-19 15:43:00 Tod Aguilar [facility] URINALYSIS 2023-05-19 15:32:00 Tod Aguilar [facility] POCT TEST 2023-05-19 15:31:00 Tod Aguilar [facility] CONSENT/REFUSAL FOR DIAGNOSI S AND TREATMENT 2023-05-19 14:37:15 Doctor Unassigned, [place] [facility] PHOSPHORUS 2023-01-15 08:15:00 Benita Rockwell [facility] MAGNESIUM 2023-01-15 08:15:00 Benita Rockwell [facility] BASIC METABOLIC PANEL (NA, K , CL, CO2, GLUCOSE, BUN, CREATININE, CA) 2023-01-15 08:15:00 [place] 2023-01-15 08:15:00 Moiz Benita [facility] PROTHROMBIN TIME / INR 2023-01-15 08:15:00 Benita Rockwell [facility] MAGNESIUM 2023-01-14 10:14:00 Benita Rockwell [facility] PHOSPHORUS 2023-01-14 10:14:00 Moiz Benita [facility] BASIC METABOLIC PANEL (NA, K , CL, CO2, GLUCOSE, BUN, CREATININE, CA) 2023-01-14 10:14:00 Benita Rockwell [facility] CBC WITH DIFF 2023-01-14 10:14:00 Benita Rockwell [facility] PHOSPHORUS 2023-01-14 10:14:00 Benita Rockwell [facility] MAGNESIUM 2023-01-14 10:14:00 Benita Rockwell [facility] BASIC METABOLIC PANEL (NA, K , CL, CO2, GLUCOSE, BUN, CREATININE, CA) 2023-01-14 10:14:00 Benita Rockwell [facility] CBC WITH DIFF 2023-01-14 10:14:00 Benita Rockwell [facility] CBC WITH DIFF 2023-01-13 10:45:00 Vaishnavi, [facility] BASIC METABOLIC PANEL (NA, K , CL, CO2, GLUCOSE, BUN, CREATININE, CA) 2023-01-13 10:45:00 Vaishnavi, [facility] MAGNESIUM 2023-01-13 10:45:00 Vaishnavi, [facility] PHOSPHORUS 2023-01-13 10:45:00 Vaishnavi, [facility] HEPATIC FUNCTION PANEL (8007 6) (ALB,T.PRO,BILI T,BU/BC,ALT,AST,ALK PHOS) 2023-01-13 10:45:00 Vaishnavi, [facility] PHOSPHORUS 2023-01-13 10:45:00 Vaishnavi, [facility] MAGNESIUM 2023-01-13 10:45:00 Vaishnavi, [facility] HEPATIC FUNCTION PANEL (8007 6) (ALB,T.PRO,BILI T,BU/BC,ALT,AST,ALK PHOS) 2023-01-13 10:45:00 Vaishnavi, [facility] BASIC METABOLIC PANEL (NA, K , CL, CO2, GLUCOSE, BUN, CREATININE, CA) 2023-01-13 10:45:00 Vaishnavi, [facility] CBC WITH DIFF 2023-01-13 10:45:00 Vaishnvai, [facility] GLUCOSE BODY FLUID 2023-01-12 20:44:00 Vaishnavi, [facility] BODY FLUID MANUAL DIFF 2023-01-12 20:44:00 Vaishnavi, [facility] T.PROTEIN BODY FLUID 2023-01-12 20:44:00 Vaishnavi, [facility] ASPIRATE OR ABSCESS CULTURE(AEROBIC/ANAEROBIC) 2023-01-12 20:44:00 Vaishnavi, [facility] LDH TOTAL BODY FLUID 2023-01-12 20:44:00 Vaishnavi, [facility] GLUCOSE BODY FLUID 2023-01-12 20:44:00 Vaishnavi, [facility] T.PROTEIN BODY FLUID 2023-01-12 20:44:00 Vaishnavi, [facility] BODY FLUID DIRECT COUNT 2023-01-12 20:44:00 Vaishnavi, [facility] ASPIRATE OR ABSCESS CULTURE(AEROBIC/ANAEROBIC) 2023-01-12 20:44:00 Vaishnavi, [facility] LDH TOTAL BODY FLUID 2023-01-12 20:44:00 Vaishnavi, [facility] PROTHROMBIN TIME / INR 2023-01-12 08:13:00 Vaishnavi, [facility] PROTHROMBIN TIME / INR 2023-01-12 08:13:00 Vaishnavi, [facility] COMP. METABOLIC PANEL ([id number]) 2023-01-12 03:49:00 Zehra García [facility] COMP. METABOLIC PANEL ([id number]) 2023-01-12 03:49:00 Zehra García [facility] CT ABDOMEN PELVIS W CONTRAST 2023-01-12 03:32:06 Zehra García [facility] CT ABDOMEN PELVIS W CONTRAST 2023-01-12 03:32:06 Zehra García [facility] POCT TEST 2023-01-12 03:02:00 Zehra García [facility] POCT TEST 2023-01-12 03:02:00 Zehra García [facility] URINALYSIS 2023-01-12 02:56:00 Zehra García Joana [facility] LIPASE 2023-01-12 02:56:00 Zehra García [facility] TOTAL BETA HCG ASSAY 2023-01-12 02:56:00 Zehra García [facility] CBC WITH DIFF 2023-01-12 02:56:00 Zehra García [facility] EXTRA TUBE ORANGE 2023-01-12 02:56:00 Artur [facility] EXTRA TUBE LAV 2023-01-12 02:56:00 [facility] 2023-01-12 02:56:00 Zehra García Joana [facility] TOTAL BETA HCG ASSAY 2023-01-12 02:56:00 Zehra García [facility] CBC WITH DIFF 2023-01-12 02:56:00 Zehra García [facility] URINALYSIS 2023-01-12 02:56:00 Zehra García [facility] EXTRA TUBE LAV 2023-01-12 02:56:00 Miguel Ángel Siddiqui [facility] EXTRA TUBE ORANGE 2023-01-12 02:56:00 Miguel Ángel Siddiqui [facility] CONSENT/REFUSAL FOR DIAGNOSI S AND TREATMENT 2023-01-12 01:46:10 Doctor Unassigned, [place] [facility] CONSENT/REFUSAL FOR DIAGNOSI S AND TREATMENT 2023-01-12 01:46:10 Doctor Unassigned, [place] [facility] ASSIGNMENT OF BENEFITS 2022-11-21 19:49:02 Doctor Unassigned, [place] [facility] ASSIGNMENT OF BENEFITS 2022-11-21 19:49:02 Doctor Unassigned, [place] [facility] CONSENT/REFUSAL FOR DIAGNOSI S AND TREATMENT 2022-11-21 18:03:25 Doctor Unassigned, [place] [facility] CONSENT/REFUSAL FOR DIAGNOSI S AND TREATMENT 2022-11-21 18:03:25 Doctor Unassigned, [place] [facility] EMERGENCY SERVICES AGREEMENT S AND AUTHORIZATIONS 2022-11-21 05:01:00 Doctor Unassigned, [place] [facility] CONSENT/REFUSAL FOR DIAGNOSI S AND TREATMENT 2022-09-05 13:42:02 Doctor Unassigned, [place] [facility] LIPASE 2022-07-31 23:13:00 [facility] TEST, SERUM 2022-07-31 23:13:00 [facility] COMP. METABOLIC PANEL ([id number]) 2022-07-31 23:13:00 [facility] CBC WITH DIFF 2022-07-31 23:13:00 [facility] CONSENT/REFUSAL FOR DIAGNOSI S AND TREATMENT 2022-07-31 22:49:17 Doctor Unassigned, [place] [facility] XR ANKLE 3+ VW RIGHT 2022-07-15 16:00:00 Natasha, Beba Farmer [facility] XR FOOT 3+ VW RIGHT 2022-07-15 16:00:00 Natasha Beba Farmer [facility] XR FOOT 3+ VW RIGHT 2022-07-15 16:00:00 Natasha Beba Farmer [facility] PATIENT FINANCIAL POLICY 2022-07-15 15:25:53 Doctor Unassigned, [place] [facility] POCT MOLECULAR STREP 2022-06-23 16:06:00 Unknown, Attending [facility] ASSIGNMENT OF BENEFITS 2022-06-23 15:18:28 Doctor Unassigned, [place] [facility] COMP. METABOLIC PANEL ([id number]) 2022-05-05 19:14:00 [facility] 2022-05-05 19:14:00 Errol [facility] POCT TEST 2022-05-05 19:00:00 [facility] 2022-05-05 18:58:00 Errol [facility] CT ABDOMEN PELVIS WO CONTRAST 2022-04-26 15:11:00 [facility] MET[facility]OLIC PANEL ([id number]) 2022-04-26 14:49:00 [facility] WITH DIFF 2022-04-26 14:49:00 Singer [facility] URINALYSIS 2022-04-26 14:49:00 [facility] 2022-04-26 14:45:00 Singer [facility] CONSENT/REFUSAL FOR DIAGNOSI S AND TREATMENT 2022-04-26 14:22:29 Doctor Unassigned, [place] [facility] POCT TEST 2022-04-26 01:22:00 Oc Bridges [facility] ASSIGNMENT OF BENEFITS 2022-04-26 00:54:02 Doctor Unassigned, [place] [facility] URINALYSIS 2022-04-26 00:45:00 [facility]REFUSAL FOR DIAGNOSI S AND TREATMENT 2022-04-26 00:16:47 Doctor Unassigned, [place] [facility] BASIC METABOLIC PANEL (NA, K , CL, CO2, GLUCOSE, BUN, CREATININE, CA) 2022-04-07 22:35:00 Olamide Gavrin [facility] CBC WITH DIFF 2022-04-07 22:35:00 Olamide Garvin [facility] URINALYSIS 2022-04-07 21:36:00 Olamide Garvin [facility] URINE DRUG (IMMUNOASSAY) - COMPREHENSIVE DRUG SCREEN W/O REFLEX 2022-04-07 21:36:00 Olamide Garvin [facility] CONSENT/REFUSAL FOR DIAGNOSI S AND TREATMENT 2022-04-07 19:29:15 Doctor Unassigned, [place] [facility] POCT TEST 2022-03-24 14:07:00 Kellie Piper [facility] CONSENT/REFUSAL FOR DIAGNOSI S AND TREATMENT 2022-03-24 13:27:20 Doctor Unassigned, [place] [facility] CT ABDOMEN PELVIS WO CONTRAST 2022-03-15 14:09:04 Lydia Colmenares [facility] URINALYSIS 2022-03-15 13:53:00 Lydia Colmenares [facility] POCT TEST 2022-03-15 13:52:00 Lydia Colmenares [facility] CONSENT/REFUSAL FOR DIAGNOSI S AND TREATMENT 2022-03-15 13:37:02 Doctor Unassigned, [place] [facility] POCT TEST 2022-03-11 14:59:00 Angelica Viveros [facility] FLU VACC (), 6 MO-6 4 YRS, .5ML, IM, QUAD (FLUCELVAX) 2022-02-27 13:34:55 Ca Martinez [facility] NOTICE OF PRIVACY PRACTICES 2022-02-21 06:06:30 Doctor Unassigned, [place] [facility] CONSENT/REFUSAL FOR DIAGNOSI S AND TREATMENT 2022-02-21 06:03:41 Doctor Unassigned, [place] [facility] XR ANKLE <3 VW RIGHT 2022 17:56:42 Maggie Hamilton [facility] CT ABDOMEN PELVIS W CONTRAST 2022 17:44:17 Maggie Hamilton [facility] CT TRAUMA CERVICAL SPINE WO CONTRAST 2022 17:43:49 Maggie Hamilton [facility] POCT TEST 2022 17:27:00 Maggie Hamilton [facility] COMP. METABOLIC PANEL ([id number]) 2022 17:17:00 Maggie Hamilton [facility] CBC WITH DIFF 2022 17:17:00 Maggie Hamilton [facility] CONSENT/REFUSAL FOR DIAGNOSI S AND TREATMENT 2022 16:53:13 Doctor Unassigned, [place] [facility] GALL BLADDER 2022-01-18 12:31:09 Rosendo Levy [facility] US PELVIS COMPLETE WITH TRANSVAGINAL 2022-01-18 12:21:13 Melvin Zhao [facility] CT ABDOMEN PELVIS W CONTRAST 2022-01-18 11:20:50 Melvin Zhao [facility] POCT TEST 2022-01-18 10:57:00 Juan Kennedy [facility] COVID-19 (ID NOW RAPID TESTING) 10:57:00 Juan Kennedy [facility] URINALYSIS 2022-01-18 10:47:00 Juan Kennedy [facility] LIPASE 2022-01-18 10:29:00 Juan Kennedy [facility] TEST, SERUM 2022-01-18 10:29:00 Juan Kennedy [facility] HEPATIC FUNCTION PANEL (8007 6) (ALB,T.PRO,BILI T,BU/BC,ALT,AST,ALK PHOS) 2022-01-18 10:29:00 Juan Kennedy [facility] BASIC METABOLIC PANEL (NA, K , CL, CO2, GLUCOSE, BUN, CREATININE, CA) 2022-01-18 10:29:00 Juan Kennedy [facility] CBC WITH DIFF 2022-01-18 10:29:00 Juan Kennedy [facility] CONSENT/REFUSAL FOR DIAGNOSI S AND TREATMENT 2022-01-18 10:13:31 Doctor Unassigned, [place] [facility] CT HEAD WO CONTRAST 2022-01-15 15:22:29 Maura Cox [facility] TEST, SERUM 2022-01-15 14:36:00 Maura Cox [facility] BASIC METABOLIC PANEL (NA, K , CL, CO2, GLUCOSE, BUN, CREATININE, CA) 2022-01-15 14:36:00 Maura Cox [facility] CBC WITH DIFF 2022-01-15 14:36:00 Maura Cox [facility] CONSENT/REFUSAL FOR DIAGNOSI S AND TREATMENT 2022-01-15 13:28:12 Doctor Unassigned, [place] [facility] XR CERVICAL SPINE 4 VW 2022-01-09 00:29:16 Humberto Ochoa [facility] XR LUMBAR SPINE 4 VW 2022-01-09 00:29:16 Gabriela [facility] XR SPINE THORACIC 3 VW 2022-01-09 00:29:16 Humberto Ochoa [facility] URINALYSIS 2022-01-08 23:50:00 Humberto Ochoa [facility] CONSENT/REFUSAL FOR DIAGNOSI S AND TREATMENT 2022-01-08 22:51:08 Doctor Unassigned, [place] [facility] GALV ONLY - VAGINAL PATHOGEN S BY NUCLEIC ACID TESTING 2021-12-12 18:37:00 [facility]as[facility] [facility] URINE CULTURE 2021-12-12 18:32:00 Prasanna Vargas [facility] POCT TEST 2021-12-12 18:31:00 Prasanna Vargas [facility] POCT URINALYSIS W/O SPECIFIC GRAVITY 2021-12-12 18:31:00 Prasanna Vargas [facility] Encounters Start Date/Time End Date/Time Encounter Type Admission Type Attending [facility] Care Facility Care Department Encounter ID Source 2021-03-14 03:14:31 Emergency [facility] [id number] [facility] 2021-03-13 20:05:20 Emergency [facility] [id number] [facility] 2021-03-13 12:48:28 [place] [facility] [place] [id number] [facility] 2021-03-13 02:43:51 [place] [facility] [place] [id number] [facility] 2021-03-13 00:27:09 Emergency [facility] [place] [id number] [facility] 2021-03-12 22:10:36 Emergency [facility] [place] [id number] [facility] 2021-03-12 20:04:05 Emergency [facility] [place] [id number] [facility] 2021-03-12 15:25:05 Emergency [facility] [place] [id number] [facility] 2021-03-12 11:43:36 [facility] [id number] [facility] 2021-03-12 07:41:37 Emergency [facility] [id number] [facility] [place] 2021-03-12 05:43:47 Emergency [facility] [place] [id number] [facility] 2021-03-12 03:43:41 [place] [facility] [place] [id number] [facility] [place] 2021-03-12 01:31:27 [facility] [id number] [facility] [place] 2021-03-12 00:56:44 Emergency X [facility] ERT [id number] [facility] 2021-03-12 00:56:31 Emergency [facility] [place] [id number] [facility] [place] 2021-03-11 17:47:02 Emergency [place] [id number] [facility] 2021-03-11 16:27:15 Emergency [facility] [id number] [facility] [place] 2021-03-11 12:00:58 [place] [id number] [facility] [place] 2021-03-11 10:33:59 Emergency [facility] [id number] [facility] [place] 2021-03-11 01:36:52 [facility] [id number] [facility] 2021-03-10 23:35:34 Emergency [facility] [id number] [facility] 2021-03-10 19:06:16 Emergency [facility] [id number] [facility] 2021-03-10 12:39:47 Emergency [facility] [id number] [facility] 2021-03-10 06:54:04 Emergency [facility] [id number] [facility] 2021-03-09 13:25:44 Outpatient P [facility] CHRIS [id number] [facility] 2021-03-09 13:08:01 Outpatient P [facility] [id number] [facility] 2021-03-09 12:37:25 Outpatient P [facility] [id number] [facility] 2021-03-09 11:51:20 Outpatient P [facility] [id number] [facility] 2024-02-28 00:00:00 2024-06-27 06:46:51 Orders Only Doctor Unassigned, [place] Doctor Unassigned, [place] [facility] 1.840.114 350.1.13.10 4.2.7.2.686 [id number] [facility] 2022-08-27 00:00:00 2024-06-27 02:42:04 Orders Only MarrufoPalak jack [facility] 1.2840.114 350.1.13.10 4.2.7.2.686 [id number] [facility] 2022-08-28 00:00:00 2024-06-27 02:42:02 Orders Only [facility]rufoPalak [facility] 1..840.114 350.1.13.10 4.2.7.2.686 [id number] [id number] [facility] 2022-08-29 00:00:00 2024-06-27 02:41:59 Orders Only Marrufo, Palak Niru, Palak [facility] 1.2.840.114 350.1.13.10 4.2.7.2.686 [id number] [facility] 2022-09-24 00:00:00 2024-06-27 02:41:25 Orders Only Marrufo, Palak Niru, Palak [facility] MED[facility] BU[facility] 1.2.840.114 350.1.13.10 4.2.7.2.686 [id number] [facility] 2022-09-27 00:00:00 2024-06-27 02:41:19 Orders Only Marrufo, Palak Niru, Palak [facility] MED[facility] OFF[facility] BU[facility] 1.2.840.114 350.1.13.10 4.2.7.2.686 [id number] [facility] 2022-10-02 00:00:00 2024-06-27 02:41:14 Orders Only Marrufo, Palak Niru, Palak [facility] MED[facility] OFF[facility] BUILD[facility] 1.2.840.114 350.1.13.10 4.2.7.2.686 [id number] [facility] 2022-11-15 00:00:00 2024-06-27 02:40:23 Orders Only Marrufo, [facility] MED[facility] OFF[facility] BU[facility] 1.2.840.114 350.1.13.10 4.2.7.2.686 [id number] [facility] 2024-05-19 12:49:00 2024-05-19 16:37:00 Emergency X CHRISTIAN, ANAMARIA GARZA [facility] ERT [id number] [facility] 2024-05-19 12:49:00 2024-05-19 16:37:00 Emergency Anamaria Gonzales [facility] 1.2840.114 350.1.13.10 4.2.7.2.686 [id number] [facility] 2024-04-19 07:55:00 2024-04-19 09:58:00 Emergency X ROSENDO LEVY BRENT [facility] ERT [id number] [facility] 2024-04-19 07:55:00 2024-04-19 09:58:00 Emergency Rosendo Levy [facility] 1.2840.114 350.1.13.10 4.2.7.2.686 [id number] [id number] [facility] 2024-03-18 00:00:00 2024-04-18 18:19:35 Patient Secure Msg Doctor Unassigned, [place] Doctor Unassigned, [place] [facility] ([place]) 1.2840.114 350.1.13.10 4.2.7.2.686 [id number] [facility] 2024-04-12 11:54:00 2024-04-12 14:39:00 Emergency T YORUBA ARAM [facility] STR [id number] [facility] 2024-04-12 11:54:00 2024-04-12 14:39:00 Emergency Aram Parada [facility] ([place]) 1.2840.114 350.1.13.10 4.2.7.2.686 [id number] [facility] 2024-04-12 09:23:00 2024-04-12 10:42:00 Emergency X MAGGIE HAMILTON SANDRA [facility] ERT [id number] [facility] 2024-04-12 09:23:00 2024-04-12 10:42:00 Emergency Olamide Garvin Sandra J [facility] 1.2.840.114 350.1.13.10 4.2.7.2.686 [id number] [facility] 2024-03-10 09:43:00 2024-03-13 10:40:00 Inpatient X JOAQUINGABBYTAJ MICHAEL [facility] [id number] [facility] 2024-03-10 09:43:00 2024-03-13 10:40:00 Hospital Encounter Fidel, Alfredo Manuel, Ba Mandujano, Jose Gil, Taj Milner [facility] (EDIL[place]) 1.2840.114 350.1.13.10 4.2.7.2.686 [id number] [facility] 2024-03-06 00:00:00 2024-03-06 08:40:48 Transition of Care Marlys Odell Antoinette [facility] [place] 1.2840.114 350.1.13.10 4.2.7.2.686 [id number] [facility] 2024-03-04 06:46:00 2024-03-05 16:30:00 Outpatient X JOSE MANDUJANO MYRNA [facility] [id number] [facility] 2024-03-04 06:46:00 2024-03-05 16:30:00 Emergency Jesus Muñoz Myrna [facility] 1.2.840.114 350.1.13.10 4.2.7.2.686 [id number] [facility] 2024-03-03 00:00:00 2024-03-04 15:45:46 Patient Secure Saulo Piedrahif [facility] ([facility]) 1.2.840.114 350.1.13.10 4.2.7.2.686 [id number] [id number] [facility] 2024-03-03 00:00:00 2024-03-03 12:14:14 Telephone RajivGiselle [facility] ([place]) 1.2.840.114 350.1.13.10 4.2.7.2.686 [id number] [facility] 2024-02-28 00:00:00 2024-02-28 09:08:41 Transition of Care Tc Renteria Michele A [facility] 1.2.840.114 350.1.13.10 4.2.7.2.686 [id number] [facility] 2024-02-22 09:35:00 2024-02-27 16:59:00 Inpatient X HANY LEE [facility] [id number] [facility] 2024-02-22 09:35:00 2024-02-27 16:59:00 Hospital Encounter Colin Jones Megan A [facility] ([place]) 1.2.840.114 350.1.13.10 4.2.7.2.686 [id number] [facility] 2024-02-27 09:40:00 2024-02-27 10:51:00 Surgery Jas Buenrostro [facility] 1.2840.114 350.1.13.10 4.2.7.2.686 [id number] [facility] 2024-02-27 09:22:00 2024-02-27 10:26:00 Anesthesia Event Peter Reece [facility] 1.2840.114 350.1.13.10 4.2.7.2.686 [id number] [facility] 2024-02-24 00:00:00 2024-02-24 09:18:09 Telephone Naty Buenrostro [facility] 1.2.840.114 350.1.13.10 4.2.7.2.686 [id number] [facility] 2023-12-23 15:39:53 2023-12-23 15:39:53 Outpatient [facility] [id number] Willis Gil 2023-12-08 14:51:46 2023-12-08 14:51:46 Outpatient [facility] [id number] Willis Gil 2023-09-12 00:00:00 2023-09-12 00:00:00 Outpatient R ROLDAN WALKER [facility] [id number] [facility] 2023-08-26 00:00:00 2023-08-26 00:00:00 Transition of Care Marlys Odell ..840.114 350.1.13.10 4.2.7.2.686 [id number] [facility] 2023-08-23 08:31:00 2023-08-24 13:25:00 Outpatient X ROLDAN WALKER [facility] [place] [id number] [facility] 2023-08-04 14:56:23 2023-08-04 14:56:23 Outpatient [facility] [id number] Willis Gil 2023-06-27 14:47:45 2023-06-27 14:47:45 Outpatient [facility] [id number] Willis Gil 2023-05-19 09:04:00 2023-05-19 12:20:00 Emergency X ADETIFFANIE HUNTIL [facility] ERT [id number] [facility] 2023-05-19 09:04:00 2023-05-19 12:20:00 Emergency AderiTiffanie vargasil [facility] ..840.114 350.1.13.10 4.2.7.2.686 [id number] [facility] 2023-04-05 00:00:00 2023-04-05 00:00:00 Patient Secure MsPrasanna Lyman Cam [facility] 1.2840.114 350.1.13.10 4.2.7.2.686 [id number] [facility] 2023-02-14 12:59:23 2023-02-14 12:59:23 Outpatient [facility] [id number] Willis Rivera [place] 2023-02-06 18:19:02 2023-02-06 18:19:02 Outpatient [facility] [id number] Willis Rivera [place] 2023-01-30 00:00:00 2023-01-30 00:00:00 Outpatient [facility] [id number] [facility] 2023-01-16 00:00:00 2023-01-16 00:00:00 Transition of Care Marlys Odell 1.840.114 350.1.13.10 4.2.7.2.686 [id number] [facility] 2023-01-11 21:06:00 2023-01-15 16:00:00 Inpatient X KUN STEELE [facility] DAVID [id number] [facility] 2023-01-11 21:06:00 2023-01-15 16:00:00 Hospital Encounter Miguel Ángel Siddiqui, Kun Beltran [facility] 1.840.114 350.1.13.10 4.2.7.2.686 [id number] [facility] 2023-01-12 00:00:00 2023-01-12 00:00:00 Travel 1.2.840.1 69075.1.1 3.104.2.7 .3.931597 .8 1.2.840.114 350.1.13.10 4.2.7.3.698 084.8 [id number] [facility] 2023-01-11 00:00:00 2023-01-11 00:00:00 Travel 1.2.840.1 78739.1.1 3.104.2.7 .3.510442 .8 1.2.840.114 350.1.13.10 4.2.7.3.698 084.8 [id number] [facility] 2022-12-28 00:00:00 2022-12-28 00:00:00 Outpatient [facility] [id number] [place] [facility] 2022-12-14 18:37:13 2022-12-14 18:37:13 Outpatient SFA SFA [id number] Willis Gil 2022-12-13 00:00:00 2022-12-13 00:00:00 Outpatient [facility] [id number] [place] [facility] 2022-12-12 09:30:00 2022-12-12 09:30:00 Outpatient PRASANNA LOOMIS [facility] [id number] [facility] 2022-11-21 13:08:00 2022-11-21 16:45:00 Emergency X MANJU ARGUELLES [facility] ERT [id number] [facility] 2022-11-21 13:08:00 2022-11-21 16:45:00 Emergency Oc Bridges Christopher 1.2.840.1 04494.1.1 3.104.2.7 .3.567453 .8 [id number] [facility] 2022-11-21 00:00:00 2022-11-21 00:00:00 Travel 1.2.840.1 19252.1.1 3.104.2.7 .3.414225 .8 1.2.840.114 350.1.13.10 4.2.7.3.698 084.8 [id number] [facility] 2022-11-18 10:08:00 2022-11-18 10:08:00 Outpatient SFA SFA [id number] Willis Gil 2022-11-15 09:40:00 2022-11-15 09:40:00 Outpatient R JEREMY GREENE CHRISTINE [facility] [id number] [facility] 2022-11-09 15:26:18 2022-11-09 15:26:18 Outpatient STEFANY MCCALL [id number] Willis Gil 2022-11-06 13:00:00 2022-11-06 13:00:00 Outpatient CA ARAUZ [facility] [id number] [facility] 2022-10-29 00:00:00 2022-10-29 00:00:00 Patient Secure Msg Jeremy Greene 1.2.840.1 95136.1.1 3.104.2.7 .3.874231 .8 [id number] [facility] 2022-10-29 00:00:00 2022-10-29 00:00:00 Patient Secure Msg Prasanna Vargas 1.2.840.1 69030.1.1 3.104.2.7 .3.403804 .8 [id number] [facility] 2022-10-03 00:00:00 2022-10-03 00:00:00 Letter (Out) Roldan Walker [facility] 1.2.840.114 350.1.13.10 4.2.7.2.686 [id number] [facility] 2022-10-02 10:00:00 2022-10-02 10:00:00 Outpatient DESIREE SALMON [facility] [id number] [facility] 2022-10-01 09:40:00 2022-10-01 09:40:00 Outpatient REJI COOPER [facility] [id number] [facility] 2022-09-25 00:00:00 2022-09-25 00:00:00 Telephone Rad Serra [facility] 1..840.114 350.1.13.10 4.2.7.2.686 [id number] [facility] 2022-09-21 09:30:00 2022-09-21 09:30:00 Outpatient R KASSANDRA PUGH [facility] [id number] [facility] 2022-09-21 00:00:00 2022-09-21 00:00:00 Letter (Out) Lexy [facility] TALYA?[facility] MEDICAL OFFICE BUILDING 1..840.114 350.1.13.10 4.2.7.2.686 [id number] [facility] 2022-09-21 00:00:00 2022-09-21 00:00:00 [facility] MED[facility] OFF[facility] BU[facility] 1.2.840.114 350.1.13.10 4.2.7.2.686 [id number] [facility] 2022-09-21 00:00:00 2022-09-21 00:00:00 Telephone Kassandra Pugh [facility]YA[facility] 1.2.840.114 350.1.13.10 4.2.7.2.686 [id number] [facility] 2022-09-14 09:30:00 2022-09-14 09:30:00 Outpatient R KASSANDRA PUGH [facility] [id number] [facility] 2022-09-12 00:00:00 2022-09-12 00:00:00 Telephone Lexy [facility] TALYA[facility] MED[facility] OFF[facility] BUILD[facility] 1.2.840.114 350.1.13.10 4.2.7.2.686 [id number] [facility] 2022-09-07 11:30:00 2022-09-07 11:30:00 Outpatient R KASSANDRA PUGH [facility] [id number] [facility] 2022-09-05 08:44:00 2022-09-05 13:15:00 Emergency X KENNEDY HUTCHINS [facility] ERT [id number] [facility] 2022-09-05 08:44:00 2022-09-05 13:15:00 Emergency Kennedy Hutchins [facility] 1.2.840.114 350.1.13.10 4.2.7.2.686 [id number] [facility] 2022-09-04 00:00:00 2022-09-04 00:00:00 [facility] 1..840.114 350.1.13.10 4.2.7.2.686 [id number] [facility] 2022-09-04 00:00:00 2022-09-04 00:00:00 Patient Secure Msg Rad Serra [facility] 1..840.114 350.1.13.10 4.2.7.2.686 [id number] [facility] 2022-08-29 09:00:00 2022-08-29 09:00:00 Outpatient R DESIREE FINNEY [facility] [id number] [facility] 2022-08-14 00:00:00 2022-08-14 00:00:00 Patient Secure Msg Doctor Unassigned, [place] [facility] MEDICAL OFFICE BUILDING 1..840.114 350.1.13.10 4.2.7.2.686 [id number] [facility] 2022-07-31 17:56:00 2022-07-31 20:30:00 Emergency X MANJU ARGUELLES [facility] ERT [id number] [facility] 2022-07-31 17:56:00 2022-07-31 20:30:00 Emergency Manju Arguelles [facility] 1.2.840.114 350.1.13.10 4.2.7.2.686 [id number] [facility] 2022-07-15 09:46:45 2022-07-15 23:59:00 Outpatient R NATASHAMARILYNBEBA [facility] [id number] [facility] 2022-07-15 09:46:45 2022-07-15 23:59:00 Hospital Encounter Beba Kaur [facility] MEDICAL OFF[facility] BUILDING 1.2.840.114 350.1.13.10 4.2.7.2.686 [id number] [facility] 2022-07-15 09:46:45 2022-07-15 23:59:00 Hospital Encounter Beba Kaur [facility] MEDICAL OFFICE BUILDING 1.2.840.114 350.1.13.10 4.2.7.2.686 [id number] [facility] 2022-07-15 09:20:00 2022-07-15 10:29:17 Urgent Care Beba Kaur Unknown, Attending [facility] MEDICAL OFFICE BUILDING 1.2.84.114 350.1.13.10 4.2.7.2.686 [id number] [facility] 2022-07-15 00:00:00 2022-07-15 00:00:00 Orders Only Doctor Unassigned, [place] [facility] 1.2840.114 350.1.13.10 4.2.7.2.686 [id number] [facility] 2022-06-23 09:20:00 2022-06-23 10:27:39 Outpatient R PAUL SAMAYOA [facility] [id number] [facility] 2022-06-23 09:20:00 2022-06-23 10:27:39 Urgent Care Paul Samayoa Unknown, Attending [facility] 1.840.114 350.1.13.10 4.2.7.2.686 [id number] [facility] 2022-06-23 00:00:00 2022-06-23 00:00:00 Orders Only Doctor Unassigned, [place] [facility] 1.840.114 350.1.13.10 4.2.7.2.686 [id number] [facility] 2022-06-15 09:40:00 2022-06-15 09:40:00 Outpatient JEREMY LABOY [facility] [id number] [facility] 2022-05-29 08:00:00 2022-05-29 08:00:00 Outpatient KASSANDRA MCKINLEY [facility] [id number] [facility] 2022-05-15 09:20:00 2022-05-15 09:20:00 Outpatient BENNETT MOORE [facility] [id number] [facility] 2022-05-11 09:30:00 2022-05-11 09:30:00 Outpatient KASSANDRA MCKINLEY [facility] [id number] [facility] 2022-05-05 12:26:00 2022-05-05 16:11:00 Emergency X KARON NORTON [facility] ERT [id number] [facility] 2022-05-05 12:26:00 2022-05-05 16:11:00 Emergency Lesly Nortone [facility] 1.840.114 350.1.13.10 4.2.7.2.686 [id number] [facility] 2022-05-01 00:00:00 2022-05-01 00:00:00 Outpatient PRASANNA LOOMIS VIEN [facility] [id number] [facility] 2022-04-26 08:30:00 2022-04-26 09:59:00 Emergency X OC BRIDGES [facility] ERT [id number] [facility] 2022-04-26 08:30:00 2022-04-26 09:59:00 Emergency Oc Bridges [facility] 1.840.114 350.1.13.10 4.2.7.2.686 [id number] [facility] 2022-04-25 18:23:00 2022-04-25 21:55:00 Emergency KENNEDY GUILLERMO [facility] ERT [id number] [facility] 2022-04-25 18:23:00 2022-04-25 21:55:00 Emergency Kennedy Hutchins [facility] 1.840.114 350.1.13.10 4.2.7.2.686 [id number] [facility] 2022-04-19 10:00:00 2022-04-19 10:00:00 Outpatient JEREMY LABOY [facility] [id number] [facility] 2022-04-12 00:00:00 2022-04-12 00:00:00 [facility] 1.2.840.114 350.1.13.10 4.2.7.2.686 [id number] [facility] 2022-04-11 00:00:00 2022-04-11 00:00:00 Telephone Darrion Armstrong [facility] 1..840.114 350.1.13.10 4.2.7.2.686 [id number] [facility] 2022-04-10 00:00:00 2022-04-10 00:00:00 [facility] 1.2840.114 350.1.13.10 4.2.7.2.686 [id number] [facility] 2022-04-09 09:30:00 2022-04-09 09:30:00 [facility] 1.2840.114 350.1.13.10 4.2.7.2.686 [id number] [facility] 2022-04-09 09:30:00 2022-04-09 09:21:44 Outpatient R LEXY [facility] [id number] [facility] 2022-04-07 13:41:00 2022-04-07 17:49:00 Emergency X OLAMIDE GARVIN [facility] ERT [id number] [facility] 2022-04-07 13:41:00 2022-04-07 17:49:00 Emergency Olamide [facility] 1.2840.114 350.1.13.10 4.2.7.2.686 [id number] [facility] 2022-04-07 00:00:00 2022-04-07 00:00:00 Patient Secure Msg Doctor Unassigned, [place] [facility] 1.2840.114 350.1.13.10 4.2.7.2.686 [id number] [facility] 2022-04-04 00:00:00 2022-04-04 00:00:[facility] 1.2840.114 350.1.13.10 4.2.7.2.686 [id number] [facility] 2022-04-02 10:30:00 2022-04-02 10:30:00 Outpatient KASSANDRA MCKINLEY [facility] [id number] [facility] 2022-03-28 00:00:00 2022-03-28 00:00:00 Patient Secure Msg Doctor Unassigned, [place] [facility] 1..840.114 350.1.13.10 4.2.7.2.686 [id number] [facility] 2022-03-24 07:35:00 2022-03-24 13:11:00 Emergency X KELLIE PIPER [facility] ERT [id number] [facility] 2022-03-24 07:35:00 2022-03-24 13:11:00 Emergency Kellie Piper [facility] 1..840.114 350.1.13.10 4.2.7.2.686 [id number] [facility] 2022-03-23 10:30:00 2022-03-23 10:30:00 Outpatient KASSANDRA MCKINLEY [facility] [id number] [facility] 2022-03-23 00:00:00 2022-03-23 00:00:00 Telephone PattiDarrion salmon [facility] 1..840.114 350.1.13.10 4.2.7.2.686 [id number] [facility] 2022-03-22 00:00:00 2022-03-22 00:00:00 Telephone PattiDarrion [facility] 1..840.114 350.1.13.10 4.2.7.2.686 [id number] [id number] [facility] 2022-03-22 00:00:00 2022-03-22 00:00:00 Refill PattiDarrion [facility] 1.2.840.114 350.1.13.10 4.2.7.2.686 [id number] 092 [id number] [facility] 2022-03-21 00:00:00 2022-03-21 00:00:00 Telephone Darrion Armstrong [facility] 1.2.840.114 350.1.13.10 4.2.7.2.686 [id number] [facility] 2022-03-15 14:00:00 2022-03-15 14:36:19 [facility] [id number] 2022-03-15 14:00:00 2022-03-15 14:36:19 Office Visit Radha [facility] BUILDING 1.2.840.114 350.1.13.10 4.2.7.2.686 [id number] [facility] 2022-03-15 08:40:00 2022-03-15 10:47:00 Emergency X LYDIA COLMENARES [facility] ERT [id number] [facility] 2022-03-15 08:40:00 2022-03-15 10:47:00 Emergency Lydia Colmenares [facility] 1..840.114 350.1.13.10 4.2.7.2.686 [id number] [facility] 2022-03-14 10:30:00 2022-03-14 10:30:00 Outpatient R PRASANNA VARGAS [facility] [id number] [facility] 2022-03-11 09:22:00 2022-03-11 12:15:00 Emergency X ANGELICA VIVEROS [facility] ERT [id number] [facility] 2022-03-11 09:22:00 2022-03-11 12:15:00 Emergency Angelica Viveros [facility] 1..840.114 350.1.13.10 4.2.7.2.686 [id number] [facility] 2022-03-06 08:30:00 2022-03-06 08:30:00 Outpatient Farzana PUGHKASSANDRA [facility] [id number] [facility] 2022-03-02 00:00:00 2022-03-02 00:00:00 Telephone Patti Darrion Joey [facility] OFF[facility] BU[facility]ING 1..840.114 350.1.13.10 4.2.7.2.686 [id number] [facility] 2022-02-28 00:00:00 2022-02-28 00:00:00 Patient Secure Msg Doctor Unassigned, [place] [facility] MEDICAL OFFICE BUILDING 1.840.114 350.1.13.10 4.2.7.2.686 [id number] [id number] [facility] 2022-02-27 09:30:00 2022-02-27 09:49:42 Outpatient Farzana PUGHKASSANDRA [facility] [id number] [facility] 2022-02-27 09:30:00 2022-02-27 09:49:42 Office Visit Lonny Pughssica [facility] MEDICAL OFFICE BUILDING 1.840.114 350.1.13.10 4.2.7.2.686 [id number] [facility] 2022-02-27 08:00:00 2022-02-27 09:12:17 Office Visit Ca Martinez [facility] MEDICAL OFFICE BUILDING 1.840.114 350.1.13.10 4.2.7.2.686 [id number] [id number] [facility] 2022-02-26 11:30:00 2022-02-26 11:30:00 Outpatient R PUGHCHITRAKASSANDRA [facility] [id number] [facility] 2022-02-21 01:20:00 2022-02-21 03:44:00 Emergency X MAGGIE HAMILTON [facility] ERT [id number] [facility] 2022-02-21 01:20:00 2022-02-21 03:44:00 Emergency Maggie Hamilton [facility] 1.2.840.114 350.1.13.10 4.2.7.2.686 [id number] [facility] 2022-02-19 00:00:00 2022-02-19 00:00:00 Patient Secure Msg Kendal Zamudio [facility] MEDICAL OFFICE BUILDING 1.2840.114 350.1.13.10 4.2.7.2.686 [id number] 044 [id number] [facility] 2022-02-19 00:00:00 2022-02-19 00:00:00 Patient Secure Msg Kendal Zamudio [facility] MEDICAL OFFICE BUILDING 1.2.840.114 350.1.13.10 4.2.7.2.686 [id number] 044 [id number] [facility] 2022-02-19 00:00:00 2022-02-19 00:00:00 Patient Secure Msg Santiago Valencia [facility] [address] 1.2.840.114 350.1.13.10 4.2.7.2.686 [id number] [facility] 2022-02-19 00:00:00 2022-02-19 00:00:00 Patient Secure Msg Ross Salazar [facility] COILED COIL INSPECTOR [facility] 1.2.840.114 350.1.13.10 4.2.7.2.686 [id number] [facility] 2022 11:58:00 2022 15:13:00 Emergency X MAGGIE HAMILTON [facility] ERT [id number] [facility] 2022 11:58:00 2022 15:13:00 Emergency Maggie Hamilton [facility] 1.2.840.114 350.1.13.10 4.2.7.2.686 [id number] [facility] 2022-02-09 09:00:00 2022-02-09 09:00:00 Outpatient R CRICKET TAYLOR [facility] [id number] [facility] 2022-02-06 10:00:00 2022-02-06 10:00:00 Outpatient CA ARAUZ [facility] [id number] [facility] 2022-02-05 09:45:00 2022-02-05 10:05:00 Nurse Visit Nurse, Filippo [facility] Willie Medrano [facility]ass[facility] 1.2.840.114 350.1.13.10 4.2.7.2.686 [id number] [facility] 2022-02-05 09:20:00 2022-02-05 09:20:00 Outpatient FLACO KEE [facility] [id number] [facility] 2022-01-26 00:00:00 2022-01-26 00:00:00 Case Management Prasanna Vargas [facility] BUILDING 1.2.840.114 350.1.13.10 4.2.7.2.686 [id number] [facility] 2022-01-22 11:00:00 2022-01-22 11:00:00 Outpatient CA ARAUZ [facility] [id number] [facility] 2022-01-19 00:00:00 2022-01-19 00:00:00 Patient Secure Msg Doctor Unassigned, [place] [facility] 1.840.114 350.1.13.10 4.2.7.2.686 [id number] [facility] 2022-01-18 05:17:00 2022-01-18 10:25:00 Emergency X SUSANAROSENDO HANSON [facility] ERT [id number] [facility] 2022-01-18 05:17:00 2022-01-18 10:25:00 Emergency Kennedy Juan Rosendo [facility] 1.840.114 350.1.13.10 4.2.7.2.686 [id number] [facility] 2022-01-15 08:34:00 2022-01-15 10:49:00 Emergency MAURA DALE [facility] ERT [id number] [facility] 2022-01-15 08:34:00 2022-01-15 10:49:00 Emergency Larry Perez Robert Lee [facility] 1..840.114 350.1.13.10 4.2.7.2.686 [id number] [facility] 2022-01-08 18:04:00 2022-01-08 20:09:00 Emergency X SURAJ OCHOAS [facility] ERT [id number] [facility] 2022-01-08 18:04:00 2022-01-08 20:09:00 Emergency GabrielaSurajs [facility] 1..840.114 350.1.13.10 4.2.7.2.686 [id number] [facility] 2021-12-12 13:30:00 2021-12-12 13:40:21 Outpatient TETO BRANTLEY [facility] [id number] [facility] 2021-12-12 13:30:00 2021-12-12 13:40:21 Office Visit Prasanna Vargas [facility] 1..840.114 350.1.13.10 4.2.7.2.686 [id number] [facility] 2021-12-12 13:30:00 2021-12-12 13:40:21 Outpatient R DEYVI [facility] [id number] [facility] 2021-12-12 13:30:00 2021-12-12 13:40:21 Outpatient R DEYVI [facility] [id number] [facility] 2021-12-11 16:15:00 2021-12-11 16:15:00 Outpatient R SANTIAGO VALENCIA [facility] [id number] [facility] 2021-12-05 14:15:00 2021-12-05 14:15:00 Outpatient ROMULO BROWNING [facility] [id number] [facility] 2021-11-28 08:49:00 2021-11-28 11:02:00 Emergency X NORTON KARON [facility] ERT [id number] [facility] 2021-11-28 08:49:00 2021-11-28 11:02:00 Emergency Karon Norton [facility] 1..840.114 350.1.13.10 4.2.7.2.686 [id number] [facility] 2021-11-28 00:00:00 2021-11-28 00:00:00 Patient Secure Msg Cricket Taylor [facility] COILED COIL INSPECTOR [facility] 1..840.114 350.1.13.10 4.2.7.2.686 [id number] [facility] 2021-11-24 18:14:00 2021-11-24 21:04:00 Emergency X Kaycee MÉNDEZ [facility] ERT [id number] [facility] 2021-11-24 18:14:00 2021-11-24 21:04:00 Emergency Kaycee Méndez [facility] 1.2840.114 350.1.13.10 4.2.7.2.686 [id number] [facility] 2021-11-24 00:00:00 2021-11-24 00:00:00 Telephone Cricket Taylor [facility] COILED COIL INSPECTOR [facility] 1.2.114 350.1.13.10 4.2.7.2.686 [id number] [facility] 2021-11-20 00:00:00 2021-11-20 00:00:00 Patient Secure Kendal Medrano [facility] 1.84.114 350.1.13.10 4.2.7.2.686 [id number] 044 [id number] [facility] 2021-11-19 00:00:00 2021-11-19 00:00:00 Letter (Out) Leslie Santacruz [facility] 1.2114 350.1.13.10 4.2.7.2.686 [id number] [facility] 2021-11-18 10:41:40 2021-11-18 23:59:00 Outpatient R OLIVER FLACO [facility] [id number] [facility] 2021-11-18 10:41:40 2021-11-18 23:59:00 Hospital Encounter Oliver Pending sale to [facility] 1.284.114 350.1.13.10 4.2.7.2.686 [id number] [facility] 2021-11-18 10:20:00 2021-11-18 10:53:20 Urgent Care Oliver Pending sale to [facility] 1.2.840.114 350.1.13.10 4.2.7.2.686 [id number] [facility] 2021-11-09 10:30:00 2021-11-09 10:30:00 Outpatient DESIREE STONE [facility] [id number] [facility] 2021-10-25 13:20:00 2021-10-25 13:20:00 Urgent Care Willie Medrano Brittany [facility] MED[facility] OFFICE BUILDING 1..840.114 350.1.13.10 4.2.7.2.686 [id number] [facility] 2021-10-25 13:20:00 2021-10-25 12:47:59 Outpatient Farzana MEDRANO WILLIE [facility] [id number] [facility] 2021-10-25 00:00:00 2021-10-25 00:00:00 Patient Secure Msg Ca Martinez [facility] MEDICAL OFFICE BUILDING 1..840.114 350.1.13.10 4.2.7.2.686 [id number] [facility] 2021-10-25 00:00:00 2021-10-25 00:00:00 Telephone [facility] OFF[facility] BUILDING 1..840.114 350.1.13.10 4.2.7.2.686 [id number] [facility] 2021-10-25 00:00:00 2021-10-25 00:00:00 Telephone Provider, Filippo [facility] MEDICAL OFFICE BUILDING 1..840.114 350.1.13.10 4.2.7.2.686 [id number] [facility] 2021-10-25 00:00:00 2021-10-25 00:00:00 Telephone Nurse, Filippo [facility] 1.2.840.114 350.1.13.10 4.2.7.2.686 [id number] [facility] 2021-10-24 10:15:00 2021-10-24 10:15:00 Outpatient ROMULO BROWNING [facility] [id number] [facility] 2021-10-24 10:15:00 2021-10-24 10:15:00 Outpatient ROMULO BROWNING [facility] [id number] [facility] 2021-10-11 09:30:00 2021-10-11 09:30:00 Outpatient ROMULO BROWNING [facility] [id number] [facility] 2021-10-10 13:30:00 2021-10-10 13:30:00 Outpatient PRASANNA LOOMIS [facility] [id number] [facility] 2021-10-10 13:30:00 2021-10-10 13:30:00 Outpatient PRASANNA LOOMIS [facility] [id number] [facility] 2021-10-10 13:30:00 2021-10-10 13:30:00 Outpatient PRASANNA LOOMIS [facility] [id number] [facility] 2021-10-10 13:30:00 2021-10-10 13:30:00 Outpatient PRASANNA LOOMIS [facility] [id number] [facility] 2021-10-10 13:30:00 2021-10-10 13:30:00 Outpatient PRASANNA LOOMIS [facility] [id number] [facility] 2021-10-10 13:30:00 2021-10-10 13:30:00 Outpatient PRASANNA LOOMIS [facility] [id number] [facility] 2021-10-10 13:30:00 2021-10-10 13:30:00 Outpatient PRASANNA LOOMIS [facility] [id number] [facility] 2021-10-05 00:00:00 2021-10-05 00:00:00 Patient Secure Msg Kendal Zamudio [facility] 1.2.840.114 350.1.13.10 4.2.7.2.686 [id number] [facility] 2021-10-05 00:00:00 2021-10-05 00:00:00 Patient Secure Msg Kendal Zamudio [facility] MED[facility] OFF[facility] BUILDING 1.2.840.114 350.1.13.10 4.2.7.2.686 [id number] [facility] 2021-10-04 00:00:00 2021-10-04 00:00:00 Pre Visit Outreach Melia Rodriguez 1.2.840.114 350.1.13.10 4.2.7.2.686 [id number] [facility] 2021-09-28 13:30:00 2021-09-28 13:45:00 Office Visit Desiree Mohr [facility] 1.2.840.114 350.1.13.10 4.2.7.2.686 [id number] [facility] 2021-09-28 13:30:00 2021-09-28 13:30:00 Outpatient DESIREE STONE [facility] [id number] [facility] 2021-09-28 13:30:00 2021-09-28 13:30:00 Outpatient DESIREE STONE [facility] [id number] [facility] 2021-09-28 00:00:00 2021-09-28 00:00:00 Patient Secure Msg Desiree Mohr [facility] 1.2.840.114 350.1.13.10 4.2.7.2.686 [id number] [facility] 2021-09-27 14:00:00 2021-09-27 14:00:00 Outpatient R MANUELTETO EDWARDS [facility] [id number] [facility] 2021-09-27 09:30:00 2021-09-27 09:30:00 Outpatient R PENNINGTON DANIA [facility] [id number] [facility] 2021-09-27 09:30:00 2021-09-27 09:30:00 [facility] [id number] [facility] 2021-09-27 09:30:00 2021-09-27 09:30:00 Outpatient R PENNINGTON DANIA [facility] [id number] [facility] 2021-09-26 10:45:00 2021-09-26 10:45:00 Outpatient R CRICKET TAYLOR [facility] [id number] [facility] 2021-09-26 10:45:00 2021-09-26 10:45:00 Outpatient R RENATA CRICKET [facility] [id number] [facility] 2021-09-26 00:00:00 2021-09-26 00:00:00 Patient Secure g Ca Martinez [facility] 1.2.840.114 350.1.13.10 4.2.7.2.686 [id number] [facility] 2021-09-26 00:00:00 2021-09-26 00:00:00 Patient Secure Msg Ca Martinez [facility] 1.2.840.114 350.1.13.10 4.2.7.2.686 [id number] [facility] 2021-09-25 10:20:00 2021-09-25 11:10:42 Urgent Care Flaco Boyd Amanda [facility] OFFICE BUILDING 1.2840.114 350.1.13.10 4.2.7.2.686 [id number] [facility] 2021-09-25 10:20:00 2021-09-25 11:10:42 [id number] 2021-09-25 10:20:00 2021-09-25 10:20:00 Outpatient [facility] [id number] [facility] 2021-09-25 10:00:00 2021-09-25 10:00:00 Outpatient R PRASANNA VARGAS [facility] [id number] [facility] 2021-09-25 00:00:00 2021-09-25 00:00:00 Telephone Oliver Pending sale to [facility] 1.2840.114 350.1.13.10 4.2.7.2.686 [id number] [facility] 2021-09-25 00:00:00 2021-09-25 00:00:00 Patient Secure MsPrasanna Lyman Jm [facility] BU[facility] 1.2840.114 350.1.13.10 4.2.7.2.686 [id number] [facility] 2021-09-25 00:00:00 2021-09-25 00:00:00 Telephone Cricket Taylor [facility] COILED COIL INSPECTOR [facility] 1.2840.114 350.1.13.10 4.2.7.2.686 [id number] [facility] 2021-09-25 00:00:00 2021-09-25 00:00:00 Telephone Desiree Mohr [facility] 1.2840.114 350.1.13.10 4.2.7.2.686 [id number] [facility] 2021-09-15 00:00:00 2021-09-15 00:00:00 Patient Secure Msg Kendal Zamudio [facility] MED[facility] OFF[facility] BUILDING 1.2840.114 350.1.13.10 4.2.7.2.686 [id number] [facility] 2021-09-15 00:00:00 2021-09-15 00:00:00 Patient Secure Msg Kendal Zamudoi [facility] MEDICAL OFFICE BUILDING 1.2840.114 350.1.13.10 4.2.7.2.686 [id number] [id number] [facility] 2021-09-15 00:00:00 2021-09-15 00:00:00 Patient Secure Msg Kendal Zamudio [facility] MEDICAL OFFICE BUILDING 1.2840.114 350.1.13.10 4.2.7.2.686 [id number] [facility] 2021-09-14 00:00:00 2021-09-14 00:00:00 Patient Secure Msg VíctorRichelle cannonie [facility] MEDICAL OFFICE BUILDING 1.2840.114 350.1.13.10 4.2.7.2.686 [id number] [facility] 2021-09-14 00:00:00 2021-09-14 00:00:00 Patient Secure Msg Doctor Unassigned, [place] [facility] MEDICAL OFFICE BUILDING 1.284.114 350.1.13.10 4.2.7.2.686 [id number] [facility] 2021-09-12 10:30:00 2021-09-12 10:30:00 Outpatient DESIREE STONE [facility] [id number] [facility] 2021-09-12 10:30:00 2021-09-12 10:30:00 Outpatient DESIREE STONE [facility] [id number] [facility] 2021-09-12 00:00:00 2021-09-12 00:00:00 Patient Secure Msg Meet Taj Goodwin [facility] 1.0.114 350.1.13.10 4.2.7.2.686 [id number] [facility] 2021-09-12 00:00:00 2021-09-12 00:00:00 Orders Only Doctor Unassigned, [place] [facility] 1.2.114 350.1.13.10 4.2.7.2.686 [id number] [facility] 2021-09-12 00:00:00 2021-09-12 00:00:00 Patient Secure Msg [facility] BU[facility] 1.840.114 350.1.13.10 4.2.7.2.686 [id number] [id number] [facility] 2021-09-05 00:00:00 2021-09-05 00:00:00 Patient Secure Msg Juan [facility] MEDICAL OFFICE BUILDING 1.20.114 350.1.13.10 4.2.7.2.686 [id number] [facility] 2021-09-05 00:00:00 2021-09-05 00:00:00 Patient Secure Msg Doctor Unassigned, [place] [facility] 1.20.114 350.1.13.10 4.2.7.2.686 [id number] [facility] 2021-09-05 00:00:00 2021-09-05 00:00:00 Patient Secure Msg Doctor Unassigned, [place] [facility] 1.2.840.114 350.1.13.10 4.2.7.2.686 [id number] [facility] 2021-09-04 00:00:00 2021-09-04 00:00:00 Patient Secure Msg Ca Martinez [facility] 1.2840.114 350.1.13.10 4.2.7.2.686 [id number] [facility] 2021-08-28 00:00:00 2021-08-28 00:00:00 Patient Secure Msg Harsh Charles [facility] 1.2840.114 350.1.13.10 4.2.7.2.686 [id number] [facility] 2021-08-25 00:00:00 2021-08-25 00:00:00 Telephone Dania Pennington [facility] MED[facility] OFF[facility] BUILDING 1.2840.114 350.1.13.10 4.2.7.2.686 [id number] [facility] 2021-08-25 00:00:00 2021-08-25 00:00:00 Patient Secure Msg Ca Martinez [facility] MED[facility] OFF[facility] BUILDING 1.2840.114 350.1.13.10 4.2.7.2.686 [id number] [facility] 2021-08-24 00:00:00 2021-08-24 00:00:00 Telephone Ca Martinez [facility] MED[facility] OFF[facility] BUILDING 1.2840.114 350.1.13.10 4.2.7.2.686 [id number] [id number] [facility] 2021-08-24 00:00:00 2021-08-24 00:00:00 Patient Secure Msg Ca Martinez [facility] MED[facility] BU[facility] 1.2.840.114 350.1.13.10 4.2.7.2.686 [id number] [id number] [facility] 2021-08-23 00:00:00 2021-08-23 00:00:00 Patient Secure Msg Ca Martinez [facility] MED[facility] OFF[facility] BUILD[facility] 1.2.840.114 350.1.13.10 4.2.7.2.686 [id number] [facility] 2021-08-23 00:00:00 2021-08-23 00:00:00 Telephone Ca Martinez [facility] MED[facility] OFF[facility] BUILD[facility] 1.2840.114 350.1.13.10 4.2.7.2.686 [id number] [facility] 2021-08-22 00:00:00 2021-08-22 00:00:00 Telephone Ca [facility] 1.2840.114 350.1.13.10 4.2.7.2.686 [id number] [id number] [facility] 2021-08-22 00:00:00 2021-08-22 00:00:00 Patient Secure Hallie Graham [facility] MED[facility] OFF[facility] BUILDING 1.2840.114 350.1.13.10 4.2.7.2.686 [id number] [id number] [facility] 2021-08-18 00:00:00 2021-08-18 00:00:00 Telephone Ca Martinez [facility] MED[facility] OFF[facility] BU[facility] 1.2840.114 350.1.13.10 4.2.7.2.686 [id number] [facility] 2021-08-17 09:00:00 2021-08-17 09:00:00 Outpatient DESIREE STONE [facility] [id number] [facility] 2021-08-17 09:00:00 2021-08-17 09:00:00 Outpatient DESIREE STONE [facility] [id number] [facility] 2021-08-17 00:00:00 2021-08-17 00:00:00 Patient Secure Msg [facility] 1.840.114 350.1.13.10 4.2.7.2.686 [id number] [facility] 2021-08-17 00:00:00 2021-08-17 00:00:00 Patient Secure Msg Ca Martinez [facility] MEDICAL OFFICE BUILDING 1.840.114 350.1.13.10 4.2.7.2.686 [id number] 044 [id number] [facility] 2021-08-17 00:00:00 2021-08-17 00:00:00 Patient Secure Msg Ca Martinez [facility] MEDICAL OFFICE BUILDING 1.284.114 350.1.13.10 4.2.7.2.686 [id number] 044 [id number] [facility] 2021-08-16 00:00:00 2021-08-16 00:00:00 Patient Secure Msg Ca Martinez [facility] MEDICAL OFFICE BUILDING 1.284.114 350.1.13.10 4.2.7.2.686 [id number] 044 [id number] [facility] 2021-08-16 00:00:00 2021-08-16 00:00:00 Patient Secure Msg Doctor Unassigned, [place] [facility] MEDICAL OFFICE BUILDING 1.2840.114 350.1.13.10 4.2.7.2.686 [id number] 044 [id number] [facility] 2021-08-16 00:00:00 2021-08-16 00:00:00 Patient Secure Ca Caraballo [facility] MEDICAL OFFICE BUILDING 1.2.840.114 350.1.13.10 4.2.7.2.686 [id number] 044 [id number] [facility] 2021-08-16 00:00:00 2021-08-16 00:00:00 Patient Secure Ca Caraballo [facility] MEDICAL OFFICE BUILDING 1.2.840.114 350.1.13.10 4.2.7.2.686 [id number] 044 [id number] [facility] 2021-08-15 15:30:00 2021-08-15 16:16:42 Office Visit Ad[facility] MED[facility] OFF[facility] BUILD[facility] 1.2.840.114 350.1.13.10 4.2.7.2.686 [id number] [facility] 2021-08-15 15:30:00 2021-08-15 16:16:42 Outpatient ADÁN DIEGO [facility] [id number] [facility] 2021-08-15 15:30:00 2021-08-15 15:30:00 Outpatient ADÁN DIEGO [facility] [id number] [facility] 2021-08-15 15:30:00 2021-08-15 15:30:00 Outpatient ADÁN DIEGO [facility] [id number] [facility] 2021-08-15 15:30:00 2021-08-15 15:30:00 Outpatient ADÁN DIEGO [facility] [id number] [facility] 2021-08-15 09:27:00 2021-08-15 12:26:00 Emergency MAURA DALE [facility] ERT [id number] [facility] 2021-08-15 09:27:00 2021-08-15 12:26:00 Emergency [place], [place] [facility] 1.84.114 350.1.13.10 4.2.7.2.686 [id number] [facility] 2021-08-15 09:27:00 2021-08-15 12:26:00 Emergency X MAURA COX [facility] ERT [id number] [facility] 2021-08-15 00:00:00 2021-08-15 00:00:00 Patient Secure Msg Doctor Unassigned, [place] [facility] 1.84.114 350.1.13.10 4.2.7.2.686 [id number] [facility] 2021-08-14 13:25:00 2021-08-14 23:59:00 Outpatient CA ARAUZ [facility] [id number] [facility] 2021-08-14 13:25:00 2021-08-14 23:59:00 Outpatient CA ARAUZ [facility] [id number] [facility] 2021-08-14 13:25:00 2021-08-14 13:25:00 Outpatient CA ARAUZ [facility] [id number] [facility] 2021-08-14 12:19:07 2021-08-14 13:24:00 Outpatient CA ARAUZ [facility] [id number] [facility] 2021-08-14 12:19:07 2021-08-14 13:24:00 Outpatient CA ARAUZ [facility] [id number] [facility] 2021-08-14 12:30:00 2021-08-14 13:01:24 Supervisor Electron Tube Processing Visit Lab, Ca Pang [facility]?KARLOSKassandra [facility] MEDICAL OFFICE BUILDING 1.840.114 350.1.13.10 4.2.7.2.686 [id number] [facility] 2021-08-14 12:30:00 2021-08-14 12:45:00 Supervisor Electron Tube Processing Visit Lab, Ang - Db Ca Martinez [facility] MEDICAL OFFICE BUILDING 1.114 350.1.13.10 4.2.7.2.686 [id number] [facility] 2021-08-14 11:30:00 2021-08-14 12:31:12 Office Visit Ca Martinez [facility] MEDICAL OFFICE BUILDING 1.114 350.1.13.10 4.2.7.2.686 [id number] 044 [id number] [facility] 2021-08-14 11:30:00 2021-08-14 12:31:12 Outpatient R CA MARTINEZ [facility] [id number] [facility] 2021-08-14 00:00:00 2021-08-14 00:00:00 Patient Secure Msg Ca Martinez [facility] MEDICAL OFFICE BUILDING 1.84114 350.1.13.10 4.2.7.2.686 [id number] 044 [id number] [facility] 2021-08-14 00:00:00 2021-08-14 00:00:00 Patient Secure Msg Ca Martinez [facility] MEDICAL OFFICE BUILDING 1.84114 350.1.13.10 4.2.7.2.686 [id number] [facility] 2021-08-09 14:45:00 2021-08-09 14:45:00 Outpatient R ADÁN KIM [facility] [id number] [facility] 2021-08-09 00:00:00 2021-08-09 00:00:00 Telephone Ca Martinez [facility] MAURICE BAB[facility] MEDICAL OFFICE BUILDING 1.84114 350.1.13.10 4.2.7.2.686 [id number] [id number] [facility] 2021-08-08 11:30:00 2021-08-08 23:59:00 Outpatient R CA MARTINEZ [facility] [id number] [facility] 2021-08-08 11:30:00 2021-08-08 23:59:00 Hospital Encounter Juan Ca [facility] MEDICAL OFFICE BUILDING 1.2.840.114 350.1.13.10 4.2.7.2.686 [id number] [facility] 2021-08-08 11:15:00 2021-08-08 11:15:00 Outpatient R CA MARTINEZ [facility] [id number] [facility] 2021-08-08 11:00:00 2021-08-08 11:00:00 Outpatient R CA MARTINEZ [facility] [id number] [facility] 2021-08-08 00:00:00 2021-08-08 00:00:00 Patient Secure Msg Doctor Unassigned, [place] [facility] 1.2.840.114 350.1.13.10 4.2.7.2.686 [id number] [facility] 2021-08-07 09:30:00 2021-08-07 10:23:21 [facility] 1.2.840.114 350.1.13.10 4.2.7.2.686 [id number] [facility] 2021-08-07 09:30:00 2021-08-07 10:23:21 Outpatient R CA MARTINEZ [facility] [id number] [facility] 2021-08-07 09:30:00 2021-08-07 09:30:00 Outpatient R CA MARTINEZ [facility] [id number] [facility] 2021-08-07 00:00:00 2021-08-07 00:00:00 Patient Secure Msg Ca Martinez [facility] 1.2840.114 350.1.13.10 4.2.7.2.686 [id number] 044 [id number] [facility] 2021-08-07 00:00:00 2021-08-07 00:00:00 Patient Secure Msg Ca Martinez [facility] 1.2840.114 350.1.13.10 4.2.7.2.686 [id number] [facility] 2021-08-07 00:00:00 2021-08-07 00:00:00 Patient Secure g Desiree Mohr [facility] 1.2840.114 350.1.13.10 4.2.7.2.686 [id number] [facility] 2021-08-04 10:00:00 2021-08-04 10:00:00 Outpatient R PETRA RENO [facility] [id number] [facility] 2021-08-04 00:00:00 2021-08-04 00:00:00 Patient Secure Msg Ca Martinez [facility] 1.284.114 350.1.13.10 4.2.7.2.686 [id number] [facility] 2021-08-03 11:00:00 2021-08-03 12:48:43 Office Visit Juan Diaz [facility] [place] Mirego [facility]. 1..840.114 350.1.13.10 4.2.7.2.686 [id number] [facility] 2021-08-03 11:00:00 2021-08-03 12:48:43 Outpatient R JUAN DIAZ [facility] [id number] [facility] 2021-08-03 11:00:00 2021-08-03 11:00:00 Outpatient JUAN YANG [facility] [id number] [facility] 2021-08-03 00:00:00 2021-08-03 00:00:00 Patient Secure Desiree Zheng [facility] [place] 1.2.840.114 350.1.13.10 4.2.7.2.686 [id number] [facility] 2021-08-02 00:00:00 2021-08-02 00:00:00 Telephone Ca Martinez [facility] MEDICAL OFFICE BUILDING 1..840.114 350.1.13.10 4.2.7.2.686 [id number] [facility] 2021-07-21 08:00:00 2021-07-21 08:52:53 Outpatient DARRION QUIROZ HOWARD [facility] [id number] [facility] 2021-07-17 11:30:00 2021-07-17 11:30:00 Outpatient R CA MARTINEZ [facility] [id number] [facility] 2021-07-17 00:00:00 2021-07-17 00:00:00 Patient Secure Juan Ca [facility] MEDICAL OFFICE BUILDING 1..840.114 350.1.13.10 4.2.7.2.686 [id number] [facility] 2021-06-19 00:00:00 2021-06-19 00:00:00 Telephone Ca Martinez [facility] MEDICAL OFFICE BUILDING 1.2.840.114 350.1.13.10 4.2.7.2.686 [id number] [facility] 2021-06-09 00:00:00 2021-06-09 00:00:00 Telephone Reji Garcia [facility] NAL BUILDING 1.840.114 350.1.13.10 4.2.7.2.686 [id number] [facility] 2021-06-06 11:15:00 2021-06-06 11:15:00 Outpatient R DEYVI TETO [facility] [id number] [facility] 2021-06-06 11:15:00 2021-06-06 11:15:00 Outpatient R [facility]VI [facility] [id number] [facility] 2021-06-02 15:45:00 2021-06-02 15:45:00 Outpatient R CLAUDETTE EVANS [facility] [id number] [facility] 2021-05-31 10:00:00 2021-05-31 10:46:31 Outpatient R CA MARTINEZ [facility] [id number] [facility] 2021-05-31 10:00:00 2021-05-31 10:46:31 Office Visit Ca Martinez [facility] MEDICAL OFFICE BUILDING 1.840.114 350.1.13.10 4.2.7.2.686 [id number] [facility] 2021-05-31 10:00:00 2021-05-31 10:46:31 Outpatient R CA MARTINEZ [facility] [id number] [facility] 2021-05-31 00:00:00 2021-05-31 00:00:00 Orders Only Doctor Unassigned, [place] [facility] 1.840.114 350.1.13.10 4.2.7.2.686 [id number] [facility] 2021-05-26 00:00:00 2021-05-26 00:00:00 Telephone Skylar Groves [facility] 1.840.114 350.1.13.10 4.2.7.2.686 [id number] 044 [id number] [facility] 2021-05-26 00:00:00 2021-05-26 00:00:00 Patient Secure Msg Prasanna Vargas [facility] BU[facility] 1.2.840.114 350.1.13.10 4.2.7.2.686 [id number] [facility] 2021-05-25 14:00:00 2021-05-25 14:30:00 Telemedici ne Visit Skylar Groves [facility] MEDICAL OFFICE BUILDING 1..840.114 350.1.13.10 4.2.7.2.686 [id number] [id number] [facility] 2021-05-25 14:00:00 2021-05-25 14:00:00 Outpatient R SKYLAR GROVES [facility] [id number] [facility] 2021-05-25 14:00:00 2021-05-25 14:00:00 Outpatient R SKYLAR GROVES [facility] [id number] [facility] 2021-05-25 00:00:00 2021-05-25 00:00:00 Patient Secure Msg Skylar Groves [facility] OFFICE BUILDING 1..840.114 350.1.13.10 4.2.7.2.686 [id number] 044 [id number] [facility] 2021-05-25 00:00:00 2021-05-25 00:00:00 Patient Secure Msg Skylar Groves [facility] MEDICAL OFFICE BUILDING 1..840.114 350.1.13.10 4.2.7.2.686 [id number] 044 [id number] [facility] 2021-05-24 00:00:00 2021-05-24 00:00:00 Telephone Rad Serra [facility] 1.84.114 350.1.13.10 4.2.7.2.686 [id number] [facility] 2021-05-24 00:00:00 2021-05-24 00:00:00 Patient Secure Msg Rad Serra [facility] BU[facility] 1..840.114 350.1.13.10 4.2.7.2.686 [id number] [facility] 2021-05-24 00:00:00 2021-05-24 00:00:00 Patient Secure Msg Claudette Evans A [facility] 1.84.114 350.1.13.10 4.2.7.2.686 [id number] [id number] [facility] 2021-05-23 10:00:00 2021-05-23 10:00:00 Outpatient R [facility] [id number] [facility] 2021-05-23 10:00:00 2021-05-23 10:00:00 Outpatient R [facility] [id number] [facility] 2021-05-23 00:00:00 2021-05-23 00:00:00 Patient Secure Msg Claudette Evans [facility] MEDICAL OFFICE BUILDING 1.84.114 350.1.13.10 4.2.7.2.686 [id number] [id number] [facility] 2021-05-16 09:00:00 2021-05-16 09:00:00 Outpatient R TETO CARNES [facility] [id number] [facility] 2021-05-12 00:00:00 2021-05-12 00:00:00 Orders Only Doctor Unassigned, [place] [facility] 1.84.114 350.1.13.10 4.2.7.2.686 [id number] [facility] 2021-05-10 13:00:00 2021-05-10 13:00:00 Outpatient CLAUDETTE CEDILLO [facility] [id number] [facility] 2021-05-10 13:00:00 2021-05-10 13:00:00 Outpatient CARMELINA CEDILLOBONNIE [facility] [id number] [facility] 2021-05-09 00:00:00 2021-05-09 00:00:00 Telephone Prasanna [facility]as [facility] 1.2.840.114 350.1.13.10 4.2.7.2.686 [id number] [facility] 2021-05-09 00:00:00 2021-05-09 00:00:00 Patient Secure Msg Rad Serra [facility] BU[facility] 1.2.840.114 350.1.13.10 4.2.7.2.686 [id number] [id number] [facility] 2021-05-08 16:00:00 2021-05-08 16:00:00 Outpatient JE CRABTREE [facility] [id number] [facility] 2021-05-08 16:00:00 2021-05-08 16:00:00 Outpatient JE CRABTREE [facility] [id number] [facility] 2021-05-08 00:00:00 2021-05-08 00:00:00 Patient Secure Msg Rad Serra [facility] BU[facility] 1.2.840.114 350.1.13.10 4.2.7.2.686 [id number] 059 [id number] [facility] 2021-05-08 00:00:00 2021-05-08 00:00:00 Patient Secure Msg Rad Serra [facility] BU[facility] 1.2840.114 350.1.13.10 4.2.7.2.686 [id number] [id number] [facility] 2021-05-04 00:00:00 2021-05-04 00:00:00 Patient Secure Msg Rad Serra [facility] NAL BUILDING 1.2.840.114 350.1.13.10 4.2.7.2.686 [id number] 059 [id number] [facility] 2021-05-04 00:00:00 2021-05-04 00:00:00 Patient Secure Msg Radha [facility] BUILDING 1.2840.114 350.1.13.10 4.2.7.2.686 [id number] [facility] 2021-05-03 11:15:36 2021-05-03 23:59:00 Outpatient R [facility] [id number] [facility] 2021-05-03 11:15:36 2021-05-03 23:59:00 Hospital Encounter Radha [facility] BUILDING 1.2840.114 350.1.13.10 4.2.7.2.686 [id number] [facility] 2021-05-03 00:00:00 2021-05-03 00:00:00 Telephone Claudette Evans [facility] BU[facility] 1.2.840.114 350.1.13.10 4.2.7.2.686 [id number] [facility] 2021-05-02 00:00:00 2021-05-02 00:00:00 Telephone Rad Serra [facility] BU[facility] 1.2.840.114 350.1.13.10 4.2.7.2.686 [id number] 059 [id number] [facility] 2021-05-02 00:00:00 2021-05-02 00:00:00 Patient Secure Msg Claudette Evans [facility] MEDICAL OFFICE BUILDING 1.2.840.114 350.1.13.10 4.2.7.2.686 [id number] 044 [id number] [facility] 2021-05-02 00:00:00 2021-05-02 00:00:00 Telephone Claudette Evans [facility] MEDICAL OFFICE BUILDING 1.2.840.114 350.1.13.10 4.2.7.2.686 [id number] 044 [id number] [facility] 2021-05-02 00:00:00 2021-05-02 00:00:00 Patient Secure Msg [facility] 1..840.114 350.1.13.10 4.2.7.2.686 [id number] 059 [id number] [facility] 2021-05-02 00:00:00 2021-05-02 00:00:00 Patient Secure Msg Claudette Evans [facility] MEDICAL OFFICE BUILDING 1.2.840.114 350.1.13.10 4.2.7.2.686 [id number] 044 [id number] [facility] 2021-04-28 00:00:00 2021-04-28 00:00:00 Patient Secure Msg Claudette Evans [facility] MEDICAL OFFICE BUILDING 1.2.840.114 350.1.13.10 4.2.7.2.686 [id number] 044 [id number] [facility] 2021-04-27 14:24:00 2021-04-27 15:49:00 Emergency X MAGGIE HAMILTON [facility] [id number] [facility] 2021-04-27 14:24:00 2021-04-27 15:49:00 Emergency Maggie Hamilton [facility] 1.2840.114 350.1.13.10 4.2.7.2.686 [id number] [facility] 2021-04-27 11:15:00 2021-04-27 11:30:00 Laboratory Only Only, Ang Db Test Unknown, Attending Thony Johnson [facility] BUILD[facility] 1.114 350.1.13.10 4.2.7.2.686 [id number] [facility] 2021-04-27 11:15:00 2021-04-27 11:15:00 Outpatient R THONY JOHNSON [facility] [id number] [facility] 2021-04-27 00:00:00 2021-04-27 00:00:00 Orders Only Doctor Unassigned, [place] [facility] 1..114 350.1.13.10 4.2.7.2.686 [id number] [facility] 2021-04-20 15:00:00 2021-04-20 15:00:00 Outpatient SCOTT RENEE [facility] [id number] [facility] 2021-04-13 00:00:00 2021-04-13 00:00:00 Patient Secure Msg CristinaCarmelina ibrahimlgbonnie Cannon [facility] MEDICAL OFFICE BUILDING 1..114 350.1.13.10 4.2.7.2.686 [id number] 044 [id number] [facility] 2021-04-12 00:00:00 2021-04-12 00:00:00 Telephone CristinaCarmelinarico Kassandra [facility] MEDICAL OFFICE BUILDING 1.840.114 350.1.13.10 4.2.7.2.686 [id number] [id number] [facility] 2021-03-27 00:00:00 2021-03-27 00:00:00 Telephone Prasanna [facility]argas [facility] 1.84.114 350.1.13.10 4.2.7.2.686 [id number] [facility] 2021-03-24 00:00:00 2021-03-24 00:00:00 Patient Secure Msg Doctor Unassigned, [place] [facility] 1..114 350.1.13.10 4.2.7.2.686 [id number] [facility] 2021-03-23 13:30:00 2021-03-23 13:30:00 Outpatient [facility] [id number] [facility] 2021-03-23 13:30:00 2021-03-23 13:30:00 Outpatient R PINO HOFF [facility] [id number] [facility] 2021-03-22 09:20:00 2021-03-22 09:20:00 Outpatient R ADITYA MEEKS STRASCEz [facility] [id number] [facility] 2021-03-22 09:20:00 2021-03-22 09:20:00 Outpatient R ADITYA MEEKS STRAHIL [facility] [id number] [facility] 2021-03-20 00:00:00 2021-03-20 00:00:00 Outpatient R CLAUDETTE EVANS [facility] [id number] [facility] 2021-03-18 00:00:00 2021-03-18 00:00:00 Case Management Claudette Evans [facility] 1..840.114 350.1.13.10 4.2.7.2.686 [id number] [facility] 2021-03-16 11:16:07 2021-03-16 11:31:07 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 Electron Tube Processing Visit Lab, Ang - Db NevadaClaudette ibrahim [facility] MEDICAL OFFICE BUILDING 1.2.840.114 350.1.13.10 4.2.7.2.686 [id number] [facility] 2021-03-16 11:30:00 2021-03-16 11:30:00 Outpatient R CRISTINA CARMELINALGBONNIE [facility] [id number] [facility] 2021-03-16 11:00:00 2021-03-16 11:14:45 Outpatient R CRISTINA CARMELINARICO [facility] [id number] [facility] 2021-03-16 10:00:58 2021-03-16 11:14:45 Office Visit CristinaClaudette [facility] MEDICAL OFFICE BUILDING 1.2.840.114 350.1.13.10 4.2.7.2.686 [id number] [facility] 2021-03-16 00:00:00 2021-03-16 00:00:00 Patient Secure Msg Claudette Evans [facility] MEDICAL OFFICE BUILDING 1.2.840.114 350.1.13.10 4.2.7.2.686 [id number] [facility] 2021-03-02 16:15:00 2021-03-02 16:15:00 Outpatient R CRISTINA CARMELINARICO [facility] [id number] [facility] 2021-02-28 18:30:00 2021-02-28 18:30:00 Outpatient R WILLIE MEDRANO [facility] [id number] [facility] 2021-02-28 00:00:00 2021-02-28 00:00:00 Telephone [place] ibrahim [facility] 1.2840.114 350.1.13.10 4.2.7.2.686 [id number] [facility] 2021-02-27 09:00:00 2021-02-27 09:00:00 Outpatient Farzana DORANSTEPHANY AMELIA [facility] [id number] [facility] 2021-02-23 00:00:00 2021-02-23 00:00:00 Telephone [facility] 1.2840.114 350.1.13.10 4.2.7.2.686 [id number] [facility] 2021-02-10 18:12:00 2021-02-10 23:39:00 Emergency Kaycee Méndez [facility] 1.840.114 350.1.13.10 4.2.7.2.686 [id number] [facility] 2021-02-10 00:00:00 2021-02-10 00:00:00 Patient Secure Msg Branden Evansful [facility] 1.2840.114 350.1.13.10 4.2.7.2.686 [id number] [facility] 2021-02-10 00:00:00 2021-02-10 00:00:00 Patient Secure Msg Branden Evansful [facility]ass[facility] 1.2840.114 350.1.13.10 4.2.7.2.686 [id number] [facility] 2021-02-10 00:00:00 2021-02-10 00:00:00 Patient Secure Msg Branden Evansful Kass[facility] TALYA?[facility] 1.2840.114 350.1.13.10 4.2.7.2.686 [id number] [facility] 2021-02-10 00:00:00 2021-02-10 00:00:00 Patient Secure Msg Claudette Evans [facility] MAURICE BABIN?[facility] 1.2.840.114 350.1.13.10 4.2.7.2.686 [id number] [facility] 2021-02-09 13:40:00 2021-02-09 23:59:00 Hospital Encounter Claudette Evans [facility] Maurice Babin?[facility] 1.2840.114 350.1.13.10 4.2.7.2.686 [id number] [facility] 2021-02-09 13:49:05 2021-02-09 14:04:05 Supervisor [employer] Visit Lab, [facility] [place] [facility] 1.2840.114 350.1.13.10 4.2.7.2.686 [id number] [facility] 2021-02-09 12:23:13 2021-02-09 13:47:12 Office [facility] 1.2840.114 350.1.13.10 4.2.7.2.686 [id number] [facility] 2021-02-09 13:00:00 2021-02-09 13:00:00 Outpatient R CLAUDETTE EVANS [facility] [facility] [id number] [facility] 2021-02-09 00:00:00 2021-02-09 00:00:00 Patient Secure Msg Doctor Unassigned, [place] [facility] 1.2840.114 350.1.13.10 4.2.7.2.686 [id number] [facility] 2021-02-08 10:20:00 2021-02-08 10:20:00 Outpatient R ADITYA MEEKS STRAHIL [facility] [id number] [facility] 2021-02-07 00:00:00 2021-02-07 00:00:00 Patient Secure Msg Cristina Carmelinalgbonnie A [facility] MEDICAL OFFICE BUILDING 1.2.840.114 350.1.13.10 4.2.7.2.686 [id number] 044 [id number] [facility] 2021-02-02 10:30:00 2021-02-02 10:30:00 Outpatient R SKYLAR GROVES [facility] [id number] [facility] 2021-02-02 00:00:00 2021-02-02 00:00:00 Telephone Claudette Evans Kassandra [facility] [place]a?[facility] Medical Office Building 1.2.840.114 350.1.13.10 4.2.7.2.686 [id number] 044 [id number] [facility] 2021-02-01 08:30:00 2021-02-01 08:30:00 Outpatient R SKYLAR GROVES [facility] [id number] [facility] 2021-01-31 18:44:04 2021-01-31 19:41:26 Urgent Care Noelle Boydtany [facility] [place]a?[facility] Medical Office Building 1.2.840.114 350.1.13.10 4.2.7.2.686 [id number] [facility] 2021-01-31 19:00:00 2021-01-31 19:00:00 Outpatient R FLACO BOYD [facility] [id number] [facility] 2021-01-31 00:00:00 2021-01-31 00:00:00 Telephone Claudette Evans Kassandra [facility] [place]?[facility] Medical Office Building 1.2.840.114 350.1.13.10 4.2.7.2.686 [id number] 044 [id number] [facility] 2021-01-31 00:00:00 2021-01-31 00:00:00 Patient Secure Msg Claudette Evans [facility] OFF[facility] BUILDING 1..840.114 350.1.13.10 4.2.7.2.686 [id number] [facility] 2021-01-30 00:00:00 2021-01-30 00:00:00 Rad Abreu [facility] nal Building 1.2.840.114 350.1.13.10 4.2.7.2.686 [id number] [facility] 2021-01-30 00:00:00 2021-01-30 00:00:00 Patient Secure Msg Claudette Evans [facility] OFFICE BUILDING ONE 1..840.114 350.1.13.10 4.2.7.2.686 [id number] 044 [id number] [facility] 2021-01-26 14:00:00 2021-01-26 14:00:00 Outpatient R RAD SERRA [facility] [id number] [facility] 2021-01-26 00:00:00 2021-01-26 00:00:00 Patient Secure Msg YaneliSkylar Kassandra [facility] BU[facility] 1.2.840.114 350.1.13.10 4.2.7.2.686 [id number] [id number] [facility] 2021-01-25 15:00:00 2021-01-25 15:00:00 Outpatient R [facility] [id number] [facility] 2021-01-21 00:00:00 2021-01-21 00:00:00 Patient Secure Msg Skylar Groves [facility] OFF[facility] BUILDING 1.84.114 350.1.13.10 4.2.7.2.686 [id number] [id number] [facility] 2021-01-20 16:51:22 2021-01-20 17:12:41 Telemedici ne Visit Skylar Groves [facility] [place]a?[facility] Medical Office Building 1.284.114 350.1.13.10 4.2.7.2.686 [id number] 044 [id number] [facility] 2021-01-20 16:30:00 2021-01-20 16:30:00 Outpatient R MARIA D GROVESLIE [facility] [id number] [facility] 2021-01-19 10:15:00 2021-01-19 10:15:00 Outpatient KAYLEY IYER [facility] [id number] [facility] 2021-01-14 00:00:00 2021-01-14 00:00:00 Case Management Kassandra Benavides [facility] 1.84.114 350.1.13.10 4.2.7.2.686 [id number] [facility] 2021-01-14 00:00:00 2021-01-14 00:00:00 Patient Secure Msg Doctor Unassigned, [place] [facility] 1..114 350.1.13.10 4.2.7.2.686 [id number] [id number] [facility] 2021-01-12 16:10:00 2021-01-12 19:45:00 Emergency Hany Matthews [facility] 1.2840.114 350.1.13.10 4.2.7.2.686 [id number] [facility] 2021-01-12 15:20:00 2021-01-12 15:20:00 Outpatient R MITCHELL WILLIE [facility] [id number] [facility] 2021-01-12 14:46:57 2021-01-12 15:06:57 Urgent Care Thony Johnson Mitchell, [facility] [place]a?[facility] Medical Office Building 1.2.840.114 350.1.13.10 4.2.7.2.686 [id number] [facility] 2020-12-26 15:30:00 2020-12-26 16:13:32 Outpatient R RAD SERRA [facility] [id number] [facility] 2020-12-26 15:30:00 2020-12-26 16:13:32 Office Visit Rad Serra [facility] BUILDING 1.2.840.114 350.1.13.10 4.2.7.2.686 [id number] [facility] 2020-12-26 15:00:32 2020-12-26 16:13:32 Office Visit Rad Serra [facility] Building 1.2.840.114 350.1.13.10 4.2.7.2.686 [id number] [facility] 2020-12-26 15:30:00 2020-12-26 15:30:00 Outpatient R RAD SERRA [facility] [id number] [facility] 2020-11-29 00:00:00 2020-11-29 00:00:00 Patient Secure Msg Rad SerraHPilar [facility] BUILDING 1.2.840.114 350.1.13.10 4.2.7.2.686 [id number] [id number] [facility] 2020-11-22 11:00:00 2020-11-22 11:00:00 Outpatient DESIREE STONE [facility] [id number] [facility] 2020-11-10 18:42:46 2020-11-10 19:53:43 Urgent Care Alissa Collins [facility] Emergency Room Office Building One 1.284.114 350.1.13.10 4.2.7.2.686 [id number] [id number] 2020-11-10 19:00:00 2020-11-10 19:00:00 Outpatient R [facility] [id number] [facility] 2020-10-31 18:52:00 2020-10-31 22:15:00 Emergency Kaycee Méndez [facility] 1.84.114 350.1.13.10 4.2.7.2.686 [id number] 2020-10-31 19:00:00 2020-10-31 19:00:00 Outpatient R BEBA KAUR [facility] [id number] [facility] 2020-10-31 00:00:00 2020-10-31 00:00:00 Orders Only Doctor Unassigned, [place] [facility] 1.84.114 350.1.13.10 4.2.7.2.686 [id number] [id number] 2020-10-20 14:02:00 2020-10-20 17:13:00 Emergency Kaycee Méndez [facility] 1.2.114 350.1.13.10 4.2.7.2.686 [id number] 2020-10-18 00:00:00 2020-10-18 00:00:00 Patient Secure Msg Prasanna Vargas [facility] BUILDING 1.284.114 350.1.13.10 4.2.7.2.686 [id number] [facility] 2020-10-14 10:00:00 2020-10-14 23:59:00 Hospital Encounter Prasanna Vargas [facility] 1.2.840.114 350.1.13.10 4.2.7.2.686 [id number] 2020-10-14 13:30:00 2020-10-14 13:30:00 Outpatient Farzana STEWARTS DESIREE [facility] [id number] [facility] 2020-10-11 00:00:00 2020-10-11 00:00:00 Patient Secure Msg Prasanna Vargas [facility] NAL BUILDING 1.2.840.114 350.1.13.10 4.2.7.2.686 [id number] 134 [id number] [facility] 2020-10-11 00:00:00 2020-10-11 00:00:00 [facility] 1.2.840.114 350.1.13.10 4.2.7.2.686 [id number] [facility] 2020-10-09 12:00:00 2020-10-09 15:57:00 Emergency Lydia Kim [facility] 1.2.840.114 350.1.13.10 4.2.7.2.686 [id number] 2020-10-07 00:00:00 2020-10-07 00:00:00 Patient Secure Msg Prasanna Vargas [facility] BU[facility] 1.2.840.114 350.1.13.10 4.2.7.2.686 [id number] 134 [id number] [facility] 2020-10-07 00:00:00 2020-10-07 00:00:00 Patient Secure g Prasanna Vargas [facility] NAL BUILDING 1.2.840.114 350.1.13.10 4.2.7.2.686 [id number] [facility] 2020-10-07 00:00:00 2020-10-07 00:00:00 Patient Secure Msg Prasanna Vargas [facility] N[facility] 1.2.840.114 350.1.13.10 4.2.7.2.686 [id number] 134 [id number] [facility] 2020-10-07 00:00:00 2020-10-07 00:00:00 Patient Secure Msg Prasanna Vargas [facility] 1.2.840.114 350.1.13.10 4.2.7.2.686 [id number] 134 [id number] [facility] 2020-10-07 00:00:00 2020-10-07 00:00:00 Patient Secure Msg Prasanna Vargas [facility] 1.2.840.114 350.1.13.10 4.2.7.2.686 [id number] 134 [id number] [facility] 2020-10-07 00:00:00 2020-10-07 00:00:00 Patient Secure Msg Prasanna Vargas [facility] 1.2.840.114 350.1.13.10 4.2.7.2.686 [id number] 134 [id number] [facility] 2020-10-07 00:00:00 2020-10-07 00:00:00 Patient Secure Msg Prasanna Vargas [facility] 1.2.840.114 350.1.13.10 4.2.7.2.686 [id number] 134 [id number] [facility] 2020-10-06 08:53:00 2020-10-06 09:46:44 Office Visit Prasanna Vargas [facility] nal Building 1.2.840.114 350.1.13.10 4.2.7.2.686 [id number] 134 [id number] 2020-10-06 09:30:00 2020-10-06 09:30:00 Outpatient PRASANNA LOOMIS [facility] [id number] [facility] 2020-10-04 14:00:00 2020-10-04 14:00:00 Outpatient Farzana MOHR DESIREE [facility] [id number] [facility] 2020-09-30 10:30:00 2020-09-30 10:30:00 Outpatient DESIREE STONE [facility] [id number] [facility] 2020-09-29 13:45:00 2020-09-29 13:45:00 Outpatient R PREET SHAY [facility] [id number] [facility] 2020-09-06 15:30:00 2020-09-06 15:30:00 Outpatient PRASANNA LOOMIS [facility] [id number] [facility] 2020-09-05 00:00:00 2020-09-05 00:00:00 Patient Secure Prasanna Kang [facility] 1.2.840.114 350.1.13.10 4.2.7.2.686 [id number] [facility] 2020-09-02 15:40:00 2020-09-02 15:40:00 Outpatient DARRION QUIROZ HOWARD [facility] [id number] [facility] 2020-08-31 10:30:00 2020-08-31 10:30:00 Outpatient RAD MATAMOROS [facility] [id number] [facility] 2020-08-31 00:00:00 2020-08-31 00:00:00 Patient Secure Prasanna Kang [facility] 1.2.840.114 350.1.13.10 4.2.7.2.686 [id number] [facility] 2020-08-18 09:30:00 2020-08-18 09:30:00 Outpatient PRASANNA LOOMIS [facility] [id number] [facility] 2020-08-11 13:30:00 2020-08-11 13:30:00 Outpatient PRASANNA LOOMIS [facility] [id number] [facility] 2020-08-04 14:00:00 2020-08-04 14:00:00 Outpatient R JUSTINE SCOTT [facility] [id number] [facility] 2020-07-28 10:30:00 2020-07-28 10:30:00 Outpatient R RAD SERRA [facility] [id number] [facility] 2020-06-30 16:15:00 2020-06-30 16:15:00 Outpatient CLAUDETTE CEDILLO [facility] [id number] [facility] 2020-06-17 15:00:00 2020-06-17 15:00:00 Outpatient DARRION QUIROZ HOWARD [facility] [id number] [facility] 2020-06-16 15:30:00 2020-06-16 15:30:00 Outpatient R RAD SERRA [facility] [id number] [facility] 2020-06-09 12:30:00 2020-06-09 12:30:00 Outpatient NI YUNG [facility] [id number] [facility] 2020-06-08 08:00:00 2020-06-08 08:00:00 Outpatient NI YUNG [facility] [id number] [facility] 2020-06-02 09:00:00 2020-06-02 09:00:00 Outpatient R RAD SERRA [facility] [id number] [facility] 2020-05-28 10:00:00 2020-05-28 10:00:00 Outpatient R BEBA KAUR [facility] [id number] [facility] 2020-05-26 00:00:00 2020-05-26 00:00:00 Patient Secure MsClaudette Corea A [facility] OFFICE BUILDING ONE 1..840.114 350.1.13.10 4.2.7.2.686 [id number] [facility] 2020-05-24 10:00:00 2020-05-24 10:00:00 Outpatient R NAIFNI [facility] [id number] [facility] 2020-05-24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 axial [...] No lymphadenopathy. VESSELS:Unremarkable. BONES AND SOFT TISSUES: Unremarkable.[facility] ABDOMEN W WO CONTRAST [id number] 21:07:42EXAM: MRI ABDOMEN with and without CONTRAST [...] cholecystectomy. There is a tiny focus of D3caagsrraivhlko seen only on the T2 fat-suppressed axial [...] No lymphadenopathy. VESSELS:Unremarkable. BONES AND SOFT TISSUES: Unremarkable.[facility] GLUCOSE (AUTOMATED) 2024-02-24 01:35:26* Test Item Value Reference Range Interpretation Comme nts POCT GLU (test code = 4357616208) 95 mg/dL 70-110 Lab Interpretation (test cod e = 37902-6) Normal [facility] GLUCOSE (AUTOMATED)2024-02-24 01:35:26* Test Item Value Reference Range Interpretation Comme nts POCT GLU (test code = 1079133619) 95 mg/dL 70-110 Lab Interpretation (test cod e = 59307-2) Normal [facility] DallasHcv Qjadytgg7622-43-14 21:28:55* Test Item Value Reference Range Interpretation Comme nts HCV Ab (test code = 17683-0) Negative HCV Semi-Quantitative (test code = 27347-9) 0.01 [facility] DallasHcv Gassouxa6008-29-79 21:28:55* Test Item Value Reference Range Interpretation Comme nts HCV Ab (test code = 71438-7) Negative HCV Semi-Quantitative (test code = 18161-7) 0.01 [facility] DallasC-Reactive Mejpitr2986-59-19 18:59:19* Test Item Value Reference Range Interpretation Comme nts CRP (test code = 7645522284) 0.3 mg/dL <=0.8 Lab Interpretation (test cod e = 40916-2) Normal [facility] DallasC-Reactive Cobtcao5740-23-60 18:59:19* Test Item Value Reference Range Interpretation Comme [facility] CRP (test code = 2889224541) 0.3 mg/dL <=0.8 Lab Interpretation (test cod e = 43756-5) [facility] B Surface Wekldhun7154-65-12 16:37:53* Test Item Value Reference Range Interpretation Comme nts HBsAB (test code = 8874541190) Negative HBsAb Semi-Quantitative (test code = 0060021995) 0.00 mIU/mL WESLEY (test code = WESLEY) Interpretation: ?Hepatitis B Surface Antibody ? Negative - Patient is considered to be not immune to infection with HBV. ? ? Positive - Anti-HBs detected at greater than or equal to 12 mIU/mL. ?Patient is considered to be immune to infection with HBV. ? [facility] B Surface Bscemguf5051-07-19 16:37:53* Test Item Value Reference Range Interpretation Comme nts HBsAB (test code = 0264978298) Negative HBsAb Semi-Quantitative (test code = 6218840333) 0.00 mIU/mL WESLEY (test code = WESLEY) Interpretation: ?Hepatitis B Surface Antibody ? Negative - Patient is considered to be not immune to infection with HBV. ? ? Positive - Anti-HBs detected at greater than or equal to 12 mIU/mL. ?Patient is considered to be immune to infection with HBV. ? [facility] with Kmryag8707-94-38 16:37:47* Test Item Value Reference Range Interpretation Comme [facility] HIV Semi-quantitative (test code = 60222-4) 0.09 Negative WESLEY (test code = WESLEY) Non-reactive for HIV-1 antigen and HIV-1/HIV-2 antibodies. ?No laboratory evidence of HIV infection. ?Repeat in 2-4 weeks if acute HIV infection is suspected. [facility] B Surface Dwkorip3920-74-16 16:37:47 * Test Item Value Reference Range Interpretation Comme [facility] HBsAg Semi-Quantitative (maeve t code = 5195-3) 0.12 Negative [facility] with Tamimw2470-26-26 16:37:47* Test Item Value Reference Range Interpretation Comme nts HIV Semi-quantitative (test code = 88677-8) 0.09 Negative WESLEY (test code = WESLEY) Non-reactive for HIV-1 antigen and HIV-1/HIV-2 antibodies. ?No laboratory evidence of HIV infection. ?Repeat in 2-4 weeks if acute HIV infection is suspected. [facility] DallasHepatitis B Surface Wasvgiw9666-34-32 16:37:47 * Test Item Value Reference Range Interpretation Comme nts HBsAg Semi-Quantitative (maeve t code = 5195-3) 0.12 Negative [facility] DallasHbc Antibody (IgM & IgG)2024-02-23 16:37:42* Test Item Value Reference Range Interpretation Comme nts HBC (test code = 9731591363) Negative HBC Semi-Quantitative (test code = 4816301339) 3.51 [facility] DallasHbc Antibody (IgM & IgG)2024-02-23 16:37:42* Test Item Value Reference Range Interpretation Comme nts HBC (test code = 0923801242) Negative HBC Semi-Quantitative (test code = 9509666385) 3.51 [facility] DallasSedimentation Sbug7574-30-26 13:48:13* Test Item Value Reference Range Interpretation Comme nts ESR (test code = 40173-2) 23 2-30 Lab Interpretation (test cod e = 04425-8) Normal [facility] DallasSedimentation Kqzj8902-07-13 13:48:13* Test Item Value Reference Range Interpretation Comme nts ESR (test code = 66505-7) 23 2-30 Lab Interpretation (test cod e = 59178-9) Normal [facility] DallasHepatic Function Panel (40283) (ALB,T.PRO,BILI T,BU/BC,ALT,AST,ALK PHOS)2024-02-22 19:51:55* Test Item Value Reference Range Interpretation Comme nts TOTAL BILI (test code = 4783792883) 1.0 mg/dL 0.1-1.1 BILI UNCON (test code = 7630827114) 0.4 mg/dL 0.1-1.1 BILI CONJ (test code = 9031875910) 0.0 mg/dL 0.0-0.3 T PROTEIN (test code = 4255145401) 8.5 g/dL 6.3-8.2 H ALBUMIN (test code = 9237595023) 4.9 g/dL 3.5-5.0 ALK PHOS (test code = 2772452803) 87 U/L 34-122 Slight hemolysis ALTv (test code = 1742-6) 77 U/L 5-35 H AST(SGOT) (test code = 9984733909) 57 U/L 13-40 H Slight hemolysis Lab Interpretation (test code = 56228-1) Abnormal [facility] DallasHepatic Function Panel (27211) (ALB,T.PRO,BILI T,BU/BC,ALT,AST,ALK PHOS)2024-02-22 19:51:55* Test Item Value Reference Range Interpretation Comme nts TOTAL BILI (test code = 7992258355) 1.0 mg/dL 0.1-1.1 BILI UNCON (test code = 3065741081) 0.4 mg/dL 0.1-1.1 BILI CONJ (test code = 7002180526) 0.0 mg/dL 0.0-0.3 T PROTEIN (test code = 7352733704) 8.5 g/dL 6.3-8.2 H ALBUMIN (test code = 6196223146) 4.9 g/dL 3.5-5.0 ALK PHOS (test code = 5353652142) 87 U/L 34-122 Slight hemolysis ALTv (test code = 1742-6) 77 U/L 5-35 H AST(SGOT) (test code = 8262267300) 57 U/L 13-40 H Slight hemolysis Lab Interpretation (test code = 17979-1) Abnormal [facility] DallasXR CHEST 2 [id number] 18:19:37ORDERING PROVIDER: ?COLIN ELMORE MORRICAL HISTORY: Hematemesis TECHNIQUE: Frontal and lateral views of the Chest. [facility] [id number] 18:19:37ORDERING PROVIDER: ?COLIN ELMORE MORRICAL HISTORY: Hematemesis TECHNIQUE: Frontal and lateral views of the Chest. [facility] OFUKONL4072-75-38 17:50:15ORDERING PROVIDER: COLIN ELMORE MORRICAL HISTORY: N/v/diarrhea [...] and echogenicity.[facility] ABDOMEN IJBSUAM9045-72-14 17:50:15ORDERING PROVIDER: COLIN ELMORE MORRICAL HISTORY: N/v/diarrhea [...] lesions. ?There is normal corticalthickness, contour and echogenicity.[facility] DallasTROPONIN U9344-74-27 15:52:12* Test Item Value Reference Range Interpretation Comme nts TROPONIN I (test code = 4799476777) 0.006 ng/mL <=0.034 WESLEY (test code = [...] of biotin. Lab Interpretation (test code = 13354-3) Normal [facility] DallasTROPONIN U1825-71-12 15:52:12* Test Item Value Reference Range Interpretation Comme nts TROPONIN I (test code = 3607776659) 0.006 ng/mL <=0.034 WESLEY (test code = [...] of biotin. Lab Interpretation (test code = 92419-5) Normal [facility] DallasPREGNANCY TEST, [id number] 15:52:07* Test Item Value Reference Range Interpretation Comme nts PREG SERUM (test code = 3580630539) Negative WESLEY (test code = WESLEY) Less than 10 IU/L. ?If low titer or ectopic is suspected, resubmit specimen in 48-72 hours. [facility] DallasPREGNANCY TEST, [id number] 15:52:07* Test Item Value Reference Range Interpretation Comme nts PREG SERUM (test code = 5508705800) Negative WESLEY (test code = WESLEY) Less than 10 IU/L. ?If low titer or ectopic is suspected, resubmit specimen in 48-72 hours. [facility] DallasLIPASE2024-10-12 15:40:04* Test Item Value Reference Range Interpretation Comme nts LIPASE (test code = 9328609451) 69 U/L 0-220 Lab Interpretation (test cod e = 53289-1) Normal [facility] 15:40:04* Test Item Value Reference Range Interpretation Comme nts LIPASE (test code = 0118167576) 69 U/L 0-220 Lab Interpretation (test cod e = 49221-8) Normal [facility] METABOLIC PANEL (31700)2024-02-22 15:40:03* Test Item Value Reference Range Interpretation Comme nts NA (test code = 2884817066) 137 mmol/L 135-145 K (test code = 3232888158) 3.9 mmol/L 3.5-5.0 Slight hemolysis CL (test code = 1361048919) 102 mmol/L 98-108 CO2 TOTAL (test code = 5790461891) 24 mmol/L 23-31 AGAP (test code = 0537334365) 11 2-16 BUN (test code = 0810601295) 9 mg/dL 7-23 Slight hemolysis GLUCOSE (test code = 7872624409) 94 mg/dL 70-110 CREATININE (test code = 2160-0) 0.70 mg/dL 0.50-1.04 TOTAL BILI (test code = 3112246871) 1.0 mg/dL 0.1-1.1 CALCIUM (test code = 7578802812) 9.3 mg/dL 8.6-10.6 T PROTEIN (test code = 4652544456) 8.4 g/dL 6.3-8.2 H ALBUMIN (test code = 2275972193) 5.0 g/dL 3.5-5.0 ALK PHOS (test code = 1902228720) 79 U/L 34-122 Slight hemolysis ALTv (test code = 1742-6) 74 U/L 5-35 H AST(SGOT) (test code = 4071114054) 57 U/L 13-40 H Slight hemolysis eGFR (test code = 64096-1) 120.2 mL/min/1.73m2 CKD-EPI eGFR (2020). Assuming creatinine has been stable day-to-day for at least three months, the eGFR indicates Category G1 (>= 90 mL/min/1.73 m2) Lab Interpretation (test code = 77834-5) Abnormal [facility] METABOLIC PANEL ([id number])2024-02-22 15:40:03* Test Item Value Reference Range Interpretation Comme nts NA (test code = 2993583579) 137 mmol/L 135-145 K (test code = 5625091566) 3.9 mmol/L 3.5-5.0 Slight hemolysis CL (test code = 0247392529) 102 mmol/L 98-108 CO2 TOTAL (test code = 3444230317) 24 mmol/L 23-31 AGAP (test code = 3479978089) 11 2-16 BUN (test code = 2004075620) 9 mg/dL 7-23 Slight hemolysis GLUCOSE (test code = 4346200688) 94 mg/dL 70-110 CREATININE (test code = 2160-0) 0.70 mg/dL 0.50-1.04 TOTAL BILI (test code = 4869746118) 1.0 mg/dL 0.1-1.1 CALCIUM (test code = 1210859785) 9.3 mg/dL 8.6-10.6 T PROTEIN (test code = 9220605951) 8.4 g/dL 6.3-8.2 H ALBUMIN (test code = 9580931359) 5.0 g/dL 3.5-5.0 ALK PHOS (test code = 3968928167) 79 U/L 34-122 Slight hemolysis ALTv (test code = 1742-6) 74 U/L 5-35 H AST(SGOT) (test code = 3821421870) 57 U/L 13-40 H Slight hemolysis eGFR (test code = 06475-0) 120.2 mL/min/1.73m2 CKD-EPI eGFR (2020). Assuming creatinine has been stable day-to-day for at least three months, the eGFR indicates Category G1 (>= 90 mL/min/1.73 m2) Lab Interpretation (test code = 30985-1) Abnormal [facility] WITH [id number] 15:35:41* Test Item Value Reference Range Interpretation [...] 34.3 g/dL 31.6-35.1 RDW-SD (test code = 52911-1) 41.3 fL 39.0-49.9 RDW-CV (test code = 788-0) 13.2 % 12.0-15.5 PLT (test code = 777-3) 329 166-358 MPV (test code = 89082-2) 9.9 fL 9.5-12.9 NRBC/100 WBC (test code = 8374207583) 0.0 0.0-10.0 NRBC x10^3 (test code = 1839144716) See_Comment [Automated messa ge] The system which generated this result transmitted reference range: 10*3/?L. The reference range was not used to interpret this result as normal/abnormal. GRAN MAT (NEUT) % (test code = 770-8) 66.5 % IMM GRAN % (test code = 4257005007) 0.30 % LYMPH % (test code = 736-9) 26.8 % MONO % (test code = 5905-5) 3.5 % EOS % (test code = 713-8) 2.3 % BASO % (test code = 706-2) 0.6 % GRAN MAT x10^3(ANC) (test code = 3613512573) 5.71 10*3/uL 1.88-7.09 IMM GRAN x10^3 (test code = 1771211816) 0.03 10*3/uL 0.00-0.06 LYMPH x10^3 (test code = 731-0) 2.30 10*3/uL 1.32-3.29 MONO x10^3 (test code = 742-7) 0.30 10*3/uL 0.33-0.92 L EOS x10^3 (test code = 711-2) 0.20 10*3/uL 0.03-0.39 BASO x10^3 (test code = 704-7) 0.05 10*3/uL 0.01-0.07 Lab Interpretation (test code = 01192-4) Abnormal [facility] WITH [id number] 15:35:41* Test Item Value Reference Range Interpretation [...] 34.3 g/dL 31.6-35.1 RDW-SD (test code = 99694-0) 41.3 fL 39.0-49.9 RDW-CV (test code = 788-0) 13.2 % 12.0-15.5 PLT (test code = 777-3) 329 166-358 MPV (test code = 17721-3) 9.9 fL 9.5-12.9 NRBC/100 WBC (test code = 3028066888) 0.0 0.0-10.0 NRBC x10^3 (test code = 0180101772) See_Comment [Automated messa ge] The system which generated this result transmitted reference range: 10*3/?L. The reference range was not used to interpret this result as normal/abnormal. GRAN MAT (NEUT) % (test code = 770-8) 66.5 % IMM GRAN % (test code = 0669186371) 0.30 % LYMPH % (test code = 736-9) 26.8 % MONO % (test code = 5905-5) 3.5 % EOS % (test code = 713-8) 2.3 % BASO % (test code = 706-2) 0.6 % GRAN MAT x10^3(ANC) (test code = 6902805901) 5.71 10*3/uL 1.88-7.09 IMM GRAN x10^3 (test code = 0540141985) 0.03 10*3/uL 0.00-0.06 LYMPH x10^3 (test code = 731-0) 2.30 10*3/uL 1.32-3.29 MONO x10^3 (test code = 742-7) 0.30 10*3/uL 0.33-0.92 L EOS x10^3 (test code = 711-2) 0.20 10*3/uL 0.03-0.39 BASO x10^3 (test code = 704-7) 0.05 10*3/uL 0.01-0.07 Lab Interpretation (test code = 46535-5) Abnormal [facility]. METABOLIC PANEL (44101)2023-05-19 17:55:27* Test Item Value Reference Range Interpretation Comme nts NA (test code = 2195290792) 138 mmol/L 135-145 K (test code = 8858927829) 3.8 mmol/L 3.5-5.0 CL (test code = 5487073518) 107 mmol/L 98-108 CO2 TOTAL (test code = 9186118800) 21 mmol/L 23-31 L AGAP (test code = 7328276866) 10 2-16 BUN (test code = 3246322797) 8 mg/dL 7-23 GLUCOSE (test code = 3712310547) 89 mg/dL 70-110 CREATININE (test code = 1796073407) 0.69 mg/dL 0.50-1.04 TOTAL BILI (test code = 3205601298) 0.7 mg/dL 0.1-1.1 CALCIUM (test code = 2069773864) 8.3 mg/dL 8.6-10.6 L T PROTEIN (test code = 0985786838) 7.3 g/dL 6.3-8.2 ALBUMIN (test code = 1753050731) 4.1 g/dL 3.5-5.0 ALK PHOS (test code = 8729785879) 107 U/L 34-122 ALTv (test code = 1742-6) 75 U/L 5-35 H AST(SGOT) (test code = 4025990599) 42 U/L 13-40 H eGFR (test code = 14119-1) 121.4 mL/min/1.73m2 CKD-EPI eGFR (2020). Assuming creatinine has been stable day-to-day for at least three months, the eGFR indicates Category G1 (>= 90 mL/min/1.73 m2) Lab Interpretation (test code = 60529-6) [facility]* Test Item Value Reference Range Interpretation Comme nts LIPASE (test code = 5347321315) 40 U/L 0-220 Lab Interpretation (test cod e = 13288-2) [facility] [id number] 16:27:28EXAM: CT ABDOMEN PELVIS W CONTRAST HISTORY: [...] hypodensity isseen within the right gluteal soft tissue.[facility] WITH [id number] 16:14:18* Test Item Value Reference Range Interpretation Comme nts WBC (test code = 6690-2) 6.32 See_Comment [Automated messa ge] The system which [...] 34.1 g/dL 31.6-35.1 RDW-SD (test code = 27855-9) 42.0 fL 39.0-49.9 RDW-CV (test code = 788-0) 13.0 % 12.0-15.5 PLT (test code = 777-3) 369 See_Comment H [Automated messa ge] The system which generated this result transmitted reference range: 166 - 358 10*3/?L. The reference range was not used to interpret this result as normal/abnormal. MPV (test code = 30706-9) 9.9 fL 9.5-12.9 NRBC/100 WBC (test code = 0376769171) 0.0 See_Comment [Automated Celeno ssage] The system which generated this result transmitted reference range: 0.0 - 10.0 /100 WBCs. The reference range was not used to interpret this result as normal/abnormal. NRBC x10^3 (test code = 1719040726) See_Comment [Automated messa ge] The system which generated this result transmitted reference range: 10*3/?L. The reference range was not used to interpret this result as normal/abnormal. GRAN MAT (NEUT) % (test code = 770-8) 64.8 % IMM GRAN % (test code = 7020973254) 0.50 % LYMPH % (test code = 736-9) 25.3 % MONO % (test code = 5905-5) 4.1 % EOS % (test code = 713-8) 4.7 % BASO % (test code = 706-2) 0.6 % GRAN MAT x10^3(ANC) (test code = 7868318021) 4.09 10*3/uL 1.88-7.09 IMM GRAN x10^3 (test code = 8963194471) 0.03 10*3/uL 0.00-0.06 LYMPH x10^3 (test code = 731-0) 1.60 10*3/uL 1.32-3.29 MONO x10^3 (test code = 742-7) 0.26 10*3/uL 0.33-0.92 L EOS x10^3 (test code = 711-2) 0.30 10*3/uL 0.03-0.39 BASO x10^3 (test code = 704-7) 0.04 10*3/uL 0.01-0.07 Lab Interpretation (test code = 88999-2) [facility] [id number] 15:31:00* Test Item Value Reference Range Interpretation Comme nts POCT PREG (test code = 1605) Negative On board controls acceptable with C Line (test code = 3574) Yes POCT PREG LOT # (test code = 3575) [id number] POCT PREG TEST DATE ( test code = 3576) 2024-07-21 Lab Interpretation (test cod e = 46998-4) Normal [facility] WITH [id number] 04:28:47* Test Item Value Reference Range Interpretation [...] 34.0 g/dL 31.6-35.1 RDW-SD (test code = 24563-5) 40.3 fL 39.0-49.9 RDW-CV (test code = 788-0) 13.1 % 12.0-15.5 PLT (test code = 777-3) 307 See_Comment [Automated messa ge] The system which generated this result transmitted reference range: 166 - 358 10*3/?L. The reference range was not used to interpret this result as normal/abnormal. MPV (test code = 45381-6) 11.0 fL 9.5-12.9 NRBC/100 WBC (test code = 7814044862) 0.0 See_Comment [Automated Celeno ssage] The system which generated this result transmitted reference range: 0.0 - 10.0 /100 WBCs. The reference range was not used to interpret this result as normal/abnormal. NRBC x10^3 (test code = 6062615852) See_Comment [Automated messa ge] The system which generated this result transmitted reference range: 10*3/?L. The reference range was not used to interpret this result as normal/abnormal. GRAN MAT (NEUT) % (test code = 770-8) 52.0 % IMM GRAN % (test code = 7616987076) 0.20 % LYMPH % (test code = 736-9) 38.0 % MONO % (test code = 5905-5) 4.6 % EOS % (test code = 713-8) 4.6 % BASO % (test code = 706-2) 0.6 % GRAN MAT x10^3(ANC) (test code = 0773448766) 2.84 10*3/uL 1.88-7.09 IMM GRAN x10^3 (test code = 7407959941) 0.00-0.06 LYMPH x10^3 (test code = 731-0) 2.07 10*3/uL 1.32-3.29 MONO x10^3 (test code = 742-7) 0.25 10*3/uL 0.33-0.92 L EOS x10^3 (test code = 711-2) 0.25 10*3/uL 0.03-0.39 BASO x10^3 (test code = 704-7) 0.03 10*3/uL 0.01-0.07 Lab Interpretation (test code = 40022-9) [facility] (71611)2023-01-12 04:12:43* Test Item Value Reference Range Interpretation Comme nts NA (test code = 8236487626) 137 mmol/L 135-145 K (test code = 0991740934) 3.4 mmol/L 3.5-5.0 L CL (test code = 7134428734) 104 mmol/L 98-108 CO2 TOTAL (test code = 0382408790) 24 mmol/L 23-31 AGAP (test code = 2678470693) 9 2-16 BUN (test code = 2572606543) 2 mg/dL 7-23 L GLUCOSE (test code = 7476420880) 92 mg/dL 70-110 CREATININE (test code = 7835675253) 0.80 mg/dL 0.50-1.04 TOTAL BILI (test code = 8381554216) 0.4 mg/dL 0.1-1.1 CALCIUM (test code = 7786277749) 8.4 mg/dL 8.6-10.6 L T PROTEIN (test code = 9392198408) 6.3 g/dL 6.3-8.2 ALBUMIN (test code = 4256730976) 3.7 g/dL 3.5-5.0 ALK PHOS (test code = 9803146361) 87 U/L 34-122 ALTv (test code = 1742-6) 27 U/L 5-35 AST(SGOT) (test code = 5495298364) 33 U/L 13-40 eGFR (test code = 4505963581) 86.0 mL/min/1.73m2 WESLEY (test code = WESLEY) [...] imaging tests). Lab Interpretation (test code = 72478-1) Abnormal [facility]. METABOLIC PANEL (07509)2023-01-12 04:12:43* Test Item Value Reference Range Interpretation Comme nts NA (test code = 5558497421) 137 mmol/L 135-145 K (test code = 2849918200) 3.4 mmol/L 3.5-5.0 L CL (test code = 1237225463) 104 mmol/L 98-108 CO2 TOTAL (test code = 1961244571) 24 mmol/L 23-31 AGAP (test code = 1154519976) 9 2-16 BUN (test code = 1653929283) 2 mg/dL 7-23 L GLUCOSE (test code = 0039722128) 92 mg/dL 70-110 CREATININE (test code = 5990481341) 0.80 mg/dL 0.50-1.04 TOTAL BILI (test code = 9341167126) 0.4 mg/dL 0.1-1.1 CALCIUM (test code = 4128497458) 8.4 mg/dL 8.6-10.6 L T PROTEIN (test code = 8529746393) 6.3 g/dL 6.3-8.2 ALBUMIN (test code = 9246211139) 3.7 g/dL 3.5-5.0 ALK PHOS (test code = 1161239979) 87 U/L 34-122 ALTv (test code = 1742-6) 27 U/L 5-35 AST(SGOT) (test code = 7582963734) 33 U/L 13-40 eGFR (test code = 1024128989) 86.0 mL/min/1.73m2 WESLEY (test code = WESLEY) [...] imaging tests). Lab Interpretation (test code = 76881-7) Abnormal [facility] ([facility])2023-01-12 04:07:04 BETA HCG<2.39Non- female and male patients: <5 mIU/mL01/11/2023 11:07 PM [facility] Gestational Age ?Range (mIU/mL) 1-10 ?Weeks ?63-17573956-47 Weeks ?54692-26851085-14 Weeks ?7907-37332397-03 Weeks ?1531-552661 Biotin has been reported to cause a negative bias, interpret results relative to patient's use of biotin. Gestational Age ?Range (mIU/mL) 1-10 ?Weeks ?43-96923895-89 Weeks ?79235-13014937-65 Weeks ?8260-15909102-21 Weeks?1531-715391 Biotin has been reported to cause a negative bias, interpret results relative to patient's use of biotin. Gestational Age ?Range (mIU/mL) 1-10 ?Weeks ?86-35732621-27 Weeks ?59804-67439691-22 Weeks ?9840-31832840-76 Weeks ?1531-626048 Biotin has been reported to cause a negative bias, interpretresults relative to patient's use of biotin.[facility] (QUANTITAT[facility])2023-01-12 04:07:04BETA HCG<2.39Non- female and male patients: <5 mIU/mL01/11/2023 11:07 PM [facility] Gestational Age ?Range (mIU/mL) 1-10 ?Weeks ?76-97465401-99 Weeks ?55093-86090727-20 Weeks ?1403-32434994-40 Weeks ?1531-143110 Biotin has been reported to cause a negative bias, interpret results relative topatient's use of biotin. Gestational Age ?Range (mIU/mL) 1-10 ?Weeks ?21-32568137-99 Weeks ?44463-97459109-67 Weeks ?5893-14859770-62 Weeks?1531-757583 Biotin has been reported to cause a negative bias, interpret results relative to patient's use of biotin. Gestational Age ?Range (mIU/mL) 1-10 ?Weeks ?06-64212478-95 Weeks ?02134-34619744-97 Weeks ?7148-46968327-62 Weeks ?1531-909848 Biotin has been reported to cause a negative bias, interpretresults relative to patient's use of biotin.[facility] 03:22:58* Test Item Value Reference Range Interpretation Comme nts LIPASE (test code = 5263368076) 41 U/L 0-220 Lab Interpretation (test cod e = 22688-5) [facility] 03:22:58* Test Item Value Reference Range Interpretation Comme nts LIPASE (test code = 5001891579) 41 U/L 0-220 Lab Interpretation (test cod e = 92931-7) [facility] [id number] 03:02:00* Test Item Value Reference Range Interpretation Comme nts POCT PREG (test code = 1605) Negative On board controls acceptable with C Line (test code = 3574) Yes POCT PREG LOT # (test code = 3575) [id number] POCT PREG TEST DATE ( test code = 3576) 05/15/2024 Lab Interpretation (test cod e = 98960-2) [facility] [id number] 03:02:00* Test Item Value Reference Range Interpretation Comme nts POCT PREG (test code = 1605) Negative On board controls acceptable with C Line (test code = 3574) Yes POCT PREG LOT # (test code = 3575) [id number] POCT PREG TEST DATE ( test code = 3576) 05/15/2024 Lab Interpretation (test cod e = 58220-2) [facility], [id number] 00:23:34* Test Item Value Reference Range Interpretation Comme nts PREG SERUM (test code = 6927282548) Negative WESLEY (test code = WESLEY) Less than 10 IU/L. ?If low titer or ectopic is suspected, resubmit specimen in 48-[address] [facility]. METABOLIC PANEL (67132)2022-07-31 23:58:12* Test Item Value Reference Range Interpretation Comme nts NA (test code = 4783588241) 140 mmol/L 135-145 K (test code = 4194170997) 3.6 mmol/L 3.5-5.0 CL (test code = 0433976095) 106 mmol/L 98-108 CO2 TOTAL (test code = 9715314110) 21 mmol/L 23-31 L AGAP (test code = 3446688954) 13 2-16 BUN (test code = 7462835754) 8 mg/dL 7-23 GLUCOSE (test code = 7762136984) 90 mg/dL 70-110 CREATININE (test code = 9559728210) 0.90 mg/dL 0.50-1.04 TOTAL BILI (test code = 4091480375) 0.5 mg/dL 0.1-1.1 CALCIUM (test code = 4813415524) 9.0 mg/dL 8.6-10.6 T PROTEIN (test code = 7248661914) 7.8 g/dL 6.3-8.2 ALBUMIN (test code = 6200680405) 4.6 g/dL 3.5-5.0 ALK PHOS (test code = 6271699713) 63 U/L 34-122 ALTv (test code = 1742-6) 23 U/L 5-35 AST(SGOT) (test code = 7293853736) 27 U/L 13-40 eGFR (test code = 5538416007) 75.1 mL/min/1.73m2 WESLEY (test code = WESLEY) [...] imaging tests). Lab Interpretation (test code = 75058-7) [facility] 23:57:32* Test Item Value Reference Range Interpretation Comme nts LIPASE (test code = 4165122550) 55 U/L 0-220 Lab Interpretation (test cod e = 49431-9) Normal [facility] WITH [id number] 23:47:31* Test Item Value Reference Range Interpretation Comme nts WBC (test code = 6690-2) 5.64 See_Comment [Automated messa ge] The system which [...] 32.6 g/dL 31.6-35.1 RDW-SD (test code = 90987-0) 42.5 fL 39.0-49.9 RDW-CV (test code = 788-0) 13.0 % 12.0-15.5 PLT (test code = 777-3) 339 See_Comment [Automated messa ge] The system which generated this result transmitted reference range: 166 - 358 10*3/?L. The reference range was not used to interpret this result as normal/abnormal. MPV (test code = 42287-1) 9.4 fL 9.5-12.9 L NRBC/100 WBC (test code = 5557393800) 0.0 See_Comment [Automated Celeno ssage] The system which generated this result transmitted reference range: 0.0 - 10.0 /100 WBCs. The reference range was not used to interpret this result as normal/abnormal. NRBC x10^3 (test code = 6808426878) See_Comment [Automated messa ge] The system which generated this result transmitted reference range: 10*3/?L. The reference range was not used to interpret this result as normal/abnormal. GRAN MAT (NEUT) % (test code = 770-8) 51.2 % IMM GRAN % (test code = 5222090309) 0.20 % LYMPH % (test code = 736-9) 36.5 % MONO % (test code = 5905-5) 5.7 % EOS % (test code = 713-8) 5.9 % BASO % (test code = 706-2) 0.5 % GRAN MAT x10^3(ANC) (test code = 9720842229) 2.89 10*3/uL 1.88-7.09 IMM GRAN x10^3 (test code = 5314144943) 0.00-0.06 LYMPH x10^3 (test code = 731-0) 2.06 10*3/uL 1.32-3.29 MONO x10^3 (test code = 742-7) 0.32 10*3/uL 0.33-0.92 L EOS x10^3 (test code = 711-2) 0.33 10*3/uL 0.03-0.39 BASO x10^3 (test code = 704-7) 0.03 10*3/uL 0.01-0.07 Lab Interpretation (test code = 75691-9) [facility]normal [facility] [id number] 16:14:38* Test Item Value Reference Range Interpretation Comme nts POCT Molecular Strep (test c ode = 54447-5) Negative Negative Lab Interpretation (test cod e = 28332-0) [facility]OL[facility] (09367)2022-05-05 19:35:37* Test Item Value Reference Range Interpretation Comme nts NA (test code = 5611286065) 139 mmol/L 135-145 K (test code = 9240370589) 4.4 mmol/L 3.5-5.0 CL (test code = 2527736798) 104 mmol/L 98-108 CO2 TOTAL (test code = 6720103725) 22 mmol/L 23-31 L AGAP (test code = 8519965883) 2-16 BUN (test code = 4758202567) 11 mg/dL 7-23 GLUCOSE (test code = 1895398174) 95 mg/dL 70-110 CREATININE (test code = 2501380802) 0.71 mg/dL 0.50-1.04 TOTAL BILI (test code = 7671520691) 0.4 mg/dL 0.1-1.1 CALCIUM (test code = 1910625121) 9.1 mg/dL 8.6-10.6 T PROTEIN (test code = 3880231407) 7.9 g/dL 6.3-8.2 ALBUMIN (test code = 6087302530) 4.7 g/dL 3.5-5.0 ALK PHOS (test code = 0936437649) 114 U/L 34-122 ALTv (test code = 1742-6) 21 U/L 5-35 AST(SGOT) (test code = 9822462789) 21 U/L 13-40 eGFR (test code = 8943032098) mL/min/1.73m2 WESLEY (test code = WESLEY) Association [...] imaging tests). Lab Interpretation (test code = 64056-2) Abnormal [facility] WITH [id number] 19:25:37* Test Item Value Reference Range Interpretation [...] 32.9 g/dL 31.6-35.1 RDW-SD (test code = 00604-7) 41.7 fL 39.0-49.9 RDW-CV (test code = 788-0) 12.7 % 12.0-15.5 PLT (test code = 777-3) See_Comment H [Automated messa ge] The system which generated this result transmitted reference range: 166 - 358 10*3/?L. The reference range was not used to interpret this result as normal/abnormal. MPV (test code = 76000-4) 8.8 fL 9.5-12.9 L NRBC/100 WBC (test code = 8886038923) See_Comment [Automated Celeno ssage] The system which generated this result transmitted reference range: 0.0 - 10.0 /100 WBCs. The reference range was not used to interpret this result as normal/abnormal. NRBC x10^3 (test code = 1765848991) See_Comment [Automated messa ge] The system which generated this result transmitted reference range: 10*3/?L. The reference range was not used to interpret this result as normal/abnormal. GRAN MAT (NEUT) % (test code = 770-8) 56.1 % IMM GRAN % (test code = 2741032839) 0.40 % LYMPH % (test code = 736-9) 29.9 % MONO % (test code = 5905-5) 5.4 % EOS % (test code = 713-8) 7.8 % BASO % (test code = 706-2) 0.4 % GRAN MAT x10^3(ANC) (test code = 4485748767) 3.75 10*3/uL 1.88-7.09 IMM GRAN x10^3 (test code = 6904813104) 0.03 10*3/uL 0.00-0.06 LYMPH x10^3 (test code = 731-0) 2.00 10*3/uL 1.32-3.29 MONO x10^3 (test code = 742-7) 0.36 10*3/uL 0.33-0.92 EOS x10^3 (test code = 711-2) 0.52 10*3/uL 0.03-0.39 H BASO x10^3 (test code = 704-7) 0.03 10*3/uL 0.01-0.07 Lab Interpretation (test code = 55588-3) [facility] [id number] 19:00:00* Test Item Value Reference Range Interpretation Comme nts POCT PREG (test code = 1605) negative On board controls acceptable with C Line (test code = 3574) present POCT PREG LOT # (test code = 3575) [id number] POCT PREG TEST DATE ( test code = 3576) 08-11-2023 Lab Interpretation (test cod e = 54507-9) Normal [facility] WITH [id number] 15:21:11* Test Item Value Reference Range Interpretation [...] 33.0 g/dL 31.6-35.1 RDW-SD (test code = 76203-7) 42.6 fL 39.0-49.9 RDW-CV (test code = 788-0) 12.9 % 12.0-15.5 PLT (test code = 777-3) See_Comment H [Automated Aptelaa ge] The system which generated this result transmitted reference range: 166 - 358 10*3/?L. The reference range was not used to interpret this result as normal/abnormal. MPV (test code = 88851-7) 9.1 fL 9.5-12.9 L NRBC/100 WBC (test code = 0262376448) See_Comment [Automated Celeno ssage] The system which generated this result transmitted reference range: 0.0 - 10.0 /100 WBCs. The reference range was not used to interpret this result as normal/abnormal. NRBC x10^3 (test code = 9995999660) See_Comment [Automated Aptelaa ge] The system which generated this result transmitted reference range: 10*3/?L. The reference range was not used to interpret this result as normal/abnormal. GRAN MAT (NEUT) % (test code = 770-8) 56.8 % IMM GRAN % (test code = 1542123126) 0.30 % LYMPH % (test code = 736-9) 29.5 % MONO % (test code = 5905-5) 4.3 % EOS % (test code = 713-8) 8.3 % BASO % (test code = 706-2) 0.8 % GRAN MAT x10^3(ANC) (test code = 9332192661) 3.57 10*3/uL 1.88-7.09 IMM GRAN x10^3 (test code = 6125772069) 0.00-0.06 LYMPH x10^3 (test code = 731-0) 1.85 10*3/uL 1.32-3.29 MONO x10^3 (test code = 742-7) 0.27 10*3/uL 0.33-0.92 L EOS x10^3 (test code = 711-2) 0.52 10*3/uL 0.03-0.39 H BASO x10^3 (test code = 704-7) 0.05 10*3/uL 0.01-0.07 Lab Interpretation (test code = 05744-1) [facility] 15:12:13* Test Item Value Reference Range Interpretation Comme nts NA (test code = 9107521228) 141 mmol/L 135-145 K (test code = 5037649291) 3.4 mmol/L 3.5-5.0 L CL (test code = 7268865982) 104 mmol/L 98-108 CO2 TOTAL (test code = 0046256797) 23 mmol/L 23-31 AGAP (test code = 6605992375) 2-16 BUN (test code = 4960238470) 9 mg/dL 7-23 GLUCOSE (test code = 0996105703) 101 mg/dL 70-110 CREATININE (test code = 6555016301) 0.82 mg/dL 0.50-1.04 TOTAL BILI (test code = 7427867807) 0.7 mg/dL 0.1-1.1 CALCIUM (test code = 1668908313) 9.3 mg/dL 8.6-10.6 T PROTEIN (test code = 6566107124) 8.1 g/dL 6.3-8.2 ALBUMIN (test code = 4930117110) 4.7 g/dL 3.5-5.0 ALK PHOS (test code = 3663746498) 108 U/L 34-122 ALTv (test code = 1742-6) 24 U/L 5-35 AST(SGOT) (test code = 8455227791) 49 U/L 13-40 H eGFR (test code = 6359142226) mL/min/1.73m2 WESLEY (test code = WESLEY) Association [...] imaging tests). Lab Interpretation (test code = 18409-8) Abnormal [facility] [id number] 14:45:00* Test Item Value Reference Range Interpretation Comme nts POCT PREG (test code = 1605) negative On board controls acceptable with C Line (test code = 3574) present POCT PREG LOT # (test code = 3575) [id number] POCT PREG TEST DATE ( test code = 3576) 08/11/2023 Lab Interpretation (test cod e = 96392-6) Normal [facility] [id number] 01:22:00* Test Item Value Reference Range Interpretation Comme nts POCT PREG (test code = 1605) Negative On board controls acceptable with C Line (test code = 3574) Present POCT PREG LOT # (test code = 3575) [id number] POCT PREG TEST DATE ( test code = 3576) 08-11-2023 Lab Interpretation (test cod e = 33369-4) Normal [facility] METABOLIC PANEL (NA, K, CL, CO2, GLUCOSE, BUN, CREATININE, CA)2022-04-07 23:01:10* Test Item Value Reference Range Interpretation Comme nts NA (test code = 4872255168) 138 mmol/L 135-145 K (test code = 3574937546) 4.3 mmol/L 3.5-5.0 CL (test code = 0012228304) 107 mmol/L 98-108 CO2 TOTAL (test code = 4552229868) 20 mmol/L 23-31 L AGAP (test code = 0650281192) 2-16 BUN (test code = 7295004209) 9 mg/dL 7-23 GLUCOSE (test code = 3353072443) 204 mg/dL 70-110 H CREATININE (test code = 8655337248) 0.74 mg/dL 0.50-1.04 CALCIUM (test code = 6312967693) 9.1 mg/dL 8.6-10.6 eGFR (test code = 7986672501) mL/min/1.73m2 WESLEY (test code = WESLEY) Association [...] imaging tests). Lab Interpretation (test code = 85193-1) Abnormal [facility] WITH [id number] 22:57:34* Test Item Value Reference Range Interpretation Comme nts WBC (test code = 6690-2) See_Comment [Automated Car reviews] The system which generated this result transmitted reference range: 4.30 - 11.10 10*3/?L. The reference range was not used to interpret this result as normal/abnormal. RBC (test code = 789-8) See_Comment [Automated Car reviews] The system which generated this result transmitted [...] 33.5 g/dL 31.6-35.1 RDW-SD (test code = 84969-6) 42.9 fL 39.0-49.9 RDW-CV (test code = 788-0) 13.4 % 12.0-15.5 PLT (test code = 777-3) See_Comment H [Automated Car reviews] The system which generated this result transmitted reference range: 166 - 358 10*3/?L. The reference range was not used to interpret this result as normal/abnormal. MPV (test code = 27761-2) 8.9 fL 9.5-12.9 L NRBC/100 WBC (test code = 9220424332) See_Comment [Automated me ssage] The system which generated this result transmitted reference range: 0.0 - 10.0 /100 WBCs. The reference range was not used to interpret this result as normal/abnormal. NRBC x10^3 (test code = 7224807820) See_Comment [Automated messa ge] The system which generated this result transmitted reference range: 10*3/?L. The reference range was not used to interpret this result as normal/abnormal. GRAN MAT (NEUT) % (test code = 770-8) 88.7 % IMM GRAN % (test code = 9619926139) 0.70 % LYMPH % (test code = 736-9) 9.4 % MONO % (test code = 5905-5) 0.9 % EOS % (test code = 713-8) 0.1 % BASO % (test code = 706-2) 0.2 % GRAN MAT x10^3(ANC) (test code = 0868572732) 7.81 10*3/uL 1.88-7.09 H IMM GRAN x10^3 (test code = 8030519106) 0.06 10*3/uL 0.00-0.06 LYMPH x10^3 (test code = 731-0) 0.83 10*3/uL 1.32-3.29 L MONO x10^3 (test code = 742-7) 0.08 10*3/uL 0.33-0.92 L EOS x10^3 (test code = 711-2) 0.03-0.39 L BASO x10^3 (test code = 704-7) 0.01-0.07 Lab Interpretation (test code = 09136-0) Abnormal [facility] [id number] 14:07:00* Test Item Value Reference Range Interpretation Comme nts POCT PREG (test code = 1605) negative On board controls acceptable with C Line (test code = 3574) present POCT PREG LOT # (test code = 3575) [id number] POCT PREG TEST DATE ( test code = 3576) 08/11/2023 Lab Interpretation (test cod e = 37269-2) [facility] [id number] 13:52:00* Test Item Value Reference Range Interpretation Comme nts POCT PREG (test code = 1605) negative On board controls acceptable with C Line (test code = 3574) present Lab Interpretation (test cod e = 94798-9) Normal [facility] [id number] 14:59:00* Test Item Value Reference Range Interpretation Comme nts POCT PREG (test code = 1605) negative On board controls acceptable with C Line (test code = 3574) yes POCT PREG LOT # (test code = 3575) [id number] POCT PREG TEST DATE ( test code = 3576) 07/11/2023 Lab Interpretation (test cod e = 94947-7) [facility]. METABOLIC PANEL (18812)2022 17:51:43* Test Item Value Reference Range Interpretation Comme nts NA (test code = 5319758079) 139 mmol/L 135-145 K (test code = 2582891411) 4.1 mmol/L 3.5-5 CL (test code = 9752543534) 104 mmol/L 98-108 CO2 TOTAL (test code = 6688438524) 22 mmol/L 23-31 L AGAP (test code = 1849631544) 2-16 BUN (test code = 5818616071) 7 mg/dL 7-23 GLUCOSE (test code = 9901367974) 114 mg/dL 70-110 H CREATININE (test code = 3502807737) 0.69 mg/dL 0.5-1.04 TOTAL BILI (test code = 0221426809) 0.4 mg/dL 0.1-1.1 CALCIUM (test code = 7073550478) 9.7 mg/dL 8.6-10.6 T PROTEIN (test code = 3573077365) 7.2 g/dL 6.3-8.2 ALBUMIN (test code = 7706437346) 4.6 g/dL 3.5-5 ALK PHOS (test code = 6638753095) 65 U/L 34-122 ALTv (test code = 1742-6) 15 U/L 5-35 AST(SGOT) (test code = 0436817546) 19 U/L 13-40 eGFR (test code = 9604337967) mL/min/1.73m2 WESLEY (test code = WESLEY) Association [...] imaging tests). Lab Interpretation (test code = 29421-9) Abnormal [facility] WITH [id number] 17:40:24* Test Item Value Reference Range Interpretation Comme nts WBC (test code = 6690-2) See_Comment [Automated Car reviews] The system which generated this result transmitted reference range: 4.30 - 11.10 10*3/?L. The reference range was not used to interpret this result as normal/abnormal. RBC (test code = 789-8) See_Comment [Automated Car reviews] The system which generated this result transmitted [...] 33.3 g/dL 31.6-35.1 RDW-SD (test code = 17315-4) 43.1 fL 39-49.9 RDW-CV (test code = 788-0) 13.2 % 12-15.5 PLT (test code = 777-3) See_Comment [Automated Aptelaa ge] The system which generated this result transmitted reference range: 166 - 358 10*3/?L. The reference range was not used to interpret this result as normal/abnormal. MPV (test code = 70455-4) 9.5 fL 9.5-12.9 NRBC/100 WBC (test code = 8708083225) See_Comment [Automated Celeno ssage] The system which generated this result transmitted reference range: 0.0 - 10.0 /100 WBCs. The reference range was not used to interpret this result as normal/abnormal. NRBC x10^3 (test code = 5396460700) See_Comment [Automated Aptelaa ge] The system which generated this result transmitted reference range: 10*3/?L. The reference range was not used to interpret this result as normal/abnormal. GRAN MAT (NEUT) % (test code = 770-8) 57.8 % IMM GRAN % (test code = 1724329438) 0.20 % LYMPH % (test code = 736-9) 30.8 % MONO % (test code = 5905-5) 5.1 % EOS % (test code = 713-8) 5.6 % BASO % (test code = 706-2) 0.5 % GRAN MAT x10^3(ANC) (test code = 2364128044) 3.61 10*3/uL 1.88-7.09 IMM GRAN x10^3 (test code = 9172754792) 0-0.06 LYMPH x10^3 (test code = 731-0) 1.92 10*3/uL 1.32-3.29 MONO x10^3 (test code = 742-7) 0.32 10*3/uL 0.33-0.92 L EOS x10^3 (test code = 711-2) 0.35 10*3/uL 0.03-0.39 BASO x10^3 (test code = 704-7) 0.03 10*3/uL 0.01-0.07 Lab Interpretation (test code = 61500-8) Abnormal [facility] [id number] 17:27:00* Test Item Value Reference Range Interpretation Comme nts POCT PREG (test code = 1605) negative On board controls acceptable with C Line (test code = 3574) present POCT PREG LOT # (test code = 3575) [id number] POCT PREG TEST DATE ( test code = 3576) Lab Interpretation (test cod e = 22767-7) [facility] 12[facility]45[facility]21* Test Item Value Reference Range Interpretation Comme nts LIPASE (test code = 7955332418) 41 U/L 0-220 Lab Interpretation (test cod e = 33006-3) Normal [facility] [id number] 10:57:00* Test Item Value Reference Range Interpretation Comme nts POCT PREG (test code = 1605) Negative On board controls acceptable with C Line (test code = 3574) Present POCT PREG LOT # (test code = 3575) [id number] POCT PREG TEST DATE ( test code = 3576) 03/12/2023 Lab Interpretation (test cod e = 37206-8) [facility] (NA, K, CL, CO2, GLUCOSE, BUN, CREATININE, CA)2022-01-18 10:56:51* Test Item Value Reference Range Interpretation Comme nts NA (test code = 9175228152) 137 mmol/L 135-145 K (test code = 1326040961) 4.6 mmol/L 3.5-5 Slight hemolysis CL (test code = 4361280620) 108 mmol/L 98-108 CO2 TOTAL (test code = 2357272053) 22 mmol/L 23-31 L AGAP (test code = 6632263078) 2-16 BUN (test code = 5572458622) 11 mg/dL 7-23 Slight hemolysis GLUCOSE (test code = 0478152462) 83 mg/dL 70-110 CREATININE (test code = 5110060884) 0.68 mg/dL 0.5-1.04 CALCIUM (test code = 4934805444) 8.8 mg/dL 8.6-10.6 eGFR (test code = 6755959511) mL/min/1.73m2 WESLEY (test code = WESLEY) Association [...] imaging tests). Lab Interpretation (test code = 53629-0) [facility]normal [facility]280[facility] (ALB,T.PRO,BILI T,BU/BC,ALT,AST,ALK PHOS)2022-01-18 10:56:51* Test Item Value Reference Range Interpretation Comme nts TOTAL BILI (test code = 5605875773) 0.6 mg/dL 0.1-1.1 BILI UNCON (test code = 4792642618) 0.1 mg/dL 0.1-1.1 BILI CONJ (test code = 8944533106) 0.0 mg/dL 0-0.3 T PROTEIN (test code = 0930088184) 8.6 g/dL 6.3-8.2 H ALBUMIN (test code = 5878665290) 5.1 g/dL 3.5-5 H ALK PHOS (test code = 2567236054) 79 U/L 34-122 ALTv (test code = 1742-6) 117 U/L 5-35 H AST(SGOT) (test code = 8103728736) 163 U/L 13-40 H Lab Interpretation (test cod e = 87116-2) [facility]normal [facility], [id number] 10:54:25* Test Item Value Reference Range Interpretation Comme nts PREG SERUM (test code = 6459278716) Negative WESLEY (test code = WESLEY) Less than 10 IU/L. ?If low titer or ectopic is suspected, resubmit specimen in 48-72 hours. [facility] WITH [id number] 10:40:49* Test Item Value Reference Range Interpretation Comme nts WBC (test code = 6690-2) See_Comment [Automated Car reviews] The system which generated this result transmitted reference range: 4.30 - 11.10 10*3/?L. The reference range was not used to interpret this result as normal/abnormal. RBC (test code = 789-8) See_Comment [Automated Car reviews] The system which generated this result transmitted [...] 33.6 g/dL 31.6-35.1 RDW-SD (test code = 07393-8) 45.3 fL 39-49.9 RDW-CV (test code = 788-0) 14.5 % 12-15.5 PLT (test code = 777-3) See_Comment [Automated messa ge] The system which generated this result transmitted reference range: 166 - 358 10*3/?L. The reference range was not used to interpret this result as normal/abnormal. MPV (test code = 73257-9) 9.5 fL 9.5-12.9 NRBC/100 WBC (test code = 1354084985) See_Comment [Automated Celeno ssage] The system which generated this result transmitted reference range: 0.0 - 10.0 /100 WBCs. The reference range was not used to interpret this result as normal/abnormal. NRBC x10^3 (test code = 9522116731) See_Comment [Automated messa ge] The system which generated this result transmitted reference range: 10*3/?L. The reference range was not used to interpret this result as normal/abnormal. GRAN MAT (NEUT) % (test code = 770-8) 47.6 % IMM GRAN % (test code = 7917159145) 0.60 % LYMPH % (test code = 736-9) 39.9 % MONO % (test code = 5905-5) 5.9 % EOS % (test code = 713-8) 5.3 % BASO % (test code = 706-2) 0.7 % GRAN MAT x10^3(ANC) (test code = 8420827025) 4.45 10*3/uL 1.88-7.09 IMM GRAN x10^3 (test code = 3673738606) 0.06 10*3/uL 0-0.06 LYMPH x10^3 (test code = 731-0) 3.74 10*3/uL 1.32-3.29 H MONO x10^3 (test code = 742-7) 0.55 10*3/uL 0.33-0.92 EOS x10^3 (test code = 711-2) 0.50 10*3/uL 0.03-0.39 H BASO x10^3 (test code = 704-7) 0.07 10*3/uL 0.01-0.07 Lab Interpretation (test code = 17029-7) Abnormal [facility] [id number] 18:31:00* Test Item Value Reference Range Interpretation Comme nts POCT PREG (test code = 1605) Negative On board controls acceptable with C Line (test code = 3574) Yes POCT PREG LOT # (test code = 3575) POCT PREG TEST DATE ( test code = 3576) [facility] URINALYSIS W/O SPECIFIC [id number] 18:31:00* Test Item Value Reference Range Interpretation [...] = 3257) Trace Negative - Negati ve [facility] Consult Notes Date/Time Note Provider Source 2024-03-11 [...] N/A 07/21/2019 Surgeon: Prasanna Vargas MD; Location: [facility] Labor and Delivery OR Location ESOPHAGOGASTRODUODENOSCOPY Upper 02/27/2024 Surgeon: Jas Buenrostro MD; Location: ENDOSCOPY (CS) OR LOCATION FLEXIBLE SIGMOIDOSCOPY (SHX) N/A 02/27/2024 Surgeon: Jas Buenrostro MD; Location: ENDOSCOPY (CS) OR LOCATION TUBAL LIGATION N/A 07/21/2019 Surgeon: Prasanna Vargas MD; Location: [facility] Labor [...] I agree with resident's note as written. [facility] 2024-02-26 10:25:08 Associated Order(s): CONSULT [...] N/A 07/21/2019 Surgeon: Prasanna Vargas MD; Location: [facility] Labor and Delivery OR Location TUBAL LIGATION N/A 07/21/2019 Surgeon: Prasanna Vargas MD; Location: [facility] Labor [...] mL IV Infusion CONTINUOUS 125 mL/hr at 02/26/245 1,000 mL at 02/26/24 0425 LORazepam (ATIVAN) [...] Friends and Family: Not on file Attends Buddhist Services: Not on file Active Member of [...] and flexible sigmoidoscopy tomorrow. JAS BUENROSTRO MD DISPENSARY TECHNICIAN, DIVISION OF GASTROENTEROLOGY AND HEPATOLOGY [facility]. [facility] 2023-01-12 00:12:43 Associated Order(s): CONSULT [...] symptomatic cholelithiasis 1.5 months ago at OSH ([place]). Pt states that she has had persistent RUQ pain with nausea and po intolerance along with intermittent chills and vomiting since surgery. Was seen by PCP and instructed to come to [facility] ED for further evaluation. Review [...] N/A 07/21/2019 Surgeon: Prasanna Vargas MD; Location: [facility] Labor and Delivery OR Location TUBAL LIGATION N/A 07/21/2019 Surgeon: Prasanna Vargas MD; Location: [facility] Labor [...] skin once every month. 1 mL 3 Xbhrqsbitp-Jzqbjrgtjpicm-Qnuz (FIORICET) 50-300-40 mg per capsule Take 1 [...] symptomatic cholelithiasis 1.5 months ago at OSH ([place]). Plan: Admission to [facility] service Consult IR for percutaneous drainage [...] pain, nausea, anorexia since lap pasquale at [facility] on 12/01/22 with noted venous bleeding from [...] - Replete hypokalemia Mirella Vergara MD, PhD Rooms Director Trauma, Acute Care Surgery, and Surgical Critical Care In-house Pager: [phone] [facility] - Health History and Physical [...] migraine. She was taken to ED in [place] after syncopal episode and was directed to return to [facility]. Bloody BM 3-4 days ago. Reports had exam for internal and external hemorrhoids in [place] - no hemorrhoids. Tried bentyl, pepcid, famotidine without success. Oral zofran does not help either. States that zofran, phenergan, tigan has not helped completely. Morphine has made it tolerable. Requesting to have IV benadryl to help her headaches. Patient was recently discharged on 03/05 from [facility] team, during this admission patient presented with [...] note, patient had been admitted twice to [facility] earlier this month for similar symptoms. However, Alpmaurepas was capped at the time of admission. Ba Manuel DO Rooms Director | Department of Internal Medicine INTERNAL MEDICINE [facility] 2024-03-04 13:22:03 [facility] MEDICINE ADMIT H&P PCP: PATIENT DOES [...] as diarrhea. Patient was recently admitted to [facility] from 02/21-02/26 for same presentation. Inpatient EGD revealed esophagitis and gastritis with biopsies positive for H. Pylori, bismuth quadruple therapy and PPI BID called in yesterday per GI but patient unable to pharmacy picking technician Patient reports since discharge, her symptoms have not improved. She states that she requested to be discharged after her son got Kawasaki's and she was able to tolerate her pain. Yesterday, she went to pharmacy picking technician the bismuth quadruple therapy but the pharmacy [...] reports going to her local ED in [place] 2 days ago. She reports getting a [...] Per chart review, patient was admitted to [facility] in January 2023 1.5 month after lpa choley for a gallbladder fossa 2.5 x 2.6 x 4.6 cm fluid collection containing small air foci concerning for abscess. Patient underwent IR guided drainage. Since then patient reports multiple visits to [place] ED for similar symptoms. She reports 40 [...] N/A 07/21/2019 Surgeon: Prasanna Vargas MD; Location: [facility] Labor and Delivery OR Location ESOPHAGOGASTRODUODENOSCOPY Upper 02/27/2024 Surgeon: Jas Buenrostro MD; Location: ENDOSCOPY (CS) OR LOCATION FLEXIBLE SIGMOIDOSCOPY (SHX) N/A 02/27/2024 Surgeon: Jas Buenrostro MD; Location: ENDOSCOPY (CS) OR LOCATION TUBAL LIGATION N/A 07/21/2019 Surgeon: Prasanna Vargas MD; Location: [facility] Labor [...] pBNP: - Trop I: - OSH records [place], [place] Operative Note 12/01/22 - venous bleeding from GB bed, Quentin (absorbable hemostat powder) and Surgicel placed Author Edgar [facility] December 01, 2022 11:26am Note Date/Time December 01, 2022 11:26am [facility] NAME: NATANAEL DYSON ADMITTING: Edgar Lora MD ADMIT DATE:12/01/22 ATTENDING: Edgar Lora MD : 1995 ACCOUNT NO:[id number] PATIENT TYPE:ADM IN LOCATION: [facility] Report Status: Signed Date of Procedure: 12/01/22 Surgeon: Edgar Lora MD Date of Service: 12/01/22 Preop diagnosis: Acute cholecystitis and cholelithiasis Postop diagnosis: Same Procedure performed: Laparoscopic cholecystectomy Surgeon: Edgar Lora MD Willow Machine Tender: Jessica CROOKS Estimated blood loss: Minimal Specimen: [...] patient overnight for observation. - Admit to [facility] for observation - PPI IV BID - [...] details. Jose Mandujano MD, MPH Internal Medicine [facility] 2024-02-26 20:55:24 Endoscopy H & [...] Slow IV Push Q4HPRN 2 mg at 02/26/24 195 morphine (2 mg/mL)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 Chart/ interval hx/ lab data reviewed. NPO status confirmed. Anesthetic plan d/w pt and she understands/ wishes to proceed. Consent obtained. [facility] 2024-02-27 06:15:00 Rec'd report from sheyla CURRIE. Pt AAO, RA, no ISO,denies overnight vomiting, rec'd enema about 0500 and have since been having BMs per RN. Bobbi Du RN [facility] 2024-02-26 13:07:55 Problem: Falls, Risk of Goal: [...] Not progressing as expected Tete Louis RN [facility] 2024-02-25 23:57:35 Problem: Pain Goal: Control of [...] Outcome: Progressing as expected Cheryl Vásquez RN [facility] 2024-02-25 07:09:28 Problem: Pain Goal: Control of [...] Adequate nutritional intake Outcome: Progressing as expected [facility] 2024-02-24 09:16:21 Uploaded to OnBase: ED Labs &CT Report Bobbi morinl, PCP 02/24/2024 9:17 am T Bobbi Saini [facility] 2024-02-24 03:16:43 Problem: Pain Goal: Control of pain at or below patient's documented comfort goal Outcome: Progressing as expected Problem: Falls, Risk of Goal: Absence of falls Outcome: Progressing as expected Problem: Infection Risk Goal: Absence of infection Outcome: Progressing as expected Problem: Discharge Planning Goal: Adequate for discharge Outcome: Progressing as expected [facility] 2024-02-23 19:02:34 Problem: Pain Goal: Control of [...] Progressing as expected T Sheldon Montague RN [facility] 2024-02-22 22:09:02 Problem: Pain Goal: Control of [...] Adequate nutritional intake Outcome: Progressing as expected [facility] 2024-02-22 19:25:41 Pt to [place] [id number] at this time via [facility] transport in stretcher. Patient in possession of all belongings. VSS, Respirations even and unlabored, AAOx4, NAD noted. [facility] Dennise Kirkland RN [facility] 2024-02-22 19:09:18 Patient requesting medication for anxiety. Team paged at this time. [facility] 2024-02-22 19:00:00 Report received from Brent CURRIE. Previous treatment and plan of care discussed. Patient resting in bed. Bed locked and in lowest position. Call light within reach. RR even and unlabored. VSS. A&Ox4. NAD noted. Awaiting transport upstairs. [facility] 2024-02-22 18:32:24 Report given to RN. Patient to be admitted to [facility]. Patient verbalized understanding of plan of care. Patient A&O x4. VSS. NAD noted. Resp even and non labored. Skin warm and dry. IV patent. Belongings to be sent with patient. Awaiting transportation. [facility] Brent Solis RN [facility] 2024-02-22 17:45:00 Pt ambulatory to and from restroom with steady gait in NAD [facility] 2024-02-22 15:45:00 Pt laying in bed meds given per MAR waiting on bed place ment, pt A&Ox4 resp even and unlabored gcs 15 [facility] 2024-02-22 13:45:00 Pt resting comfortably, skin normal warm and dry, resp even and unlabored. VSS. Bed in lowest, locked position, side rails up. Call light within reach. Awaiting results. [facility] 2024-02-22 11:45:00 Pt sitting in bed A&Ox4 , skin normal warm and dry, resp even and unlabored. VSS. Bed in lowest, locked position, side rails up. Call light within reach. Awaiting results. [facility] 2024-02-22 09:45:00 Natanael Dyson is a 29 [...] will continue to monitor. Awaiting further orders. [facility] 2024-02-22 09:31:00 Natanael Dyson is a 29 year old female c/o brayan umbical pain x 1 week. Pain worsening x 4 days. Seen at hospital in [place]. Reports no relief with zofran. Also reports vomiting/diarrhea. Reports blood in stool and emesis. No fever. Denies urinary. Denies . Alla Richardson RN [facility] 2024-02-22 09:27:00 [facility] Emergency Department Note Patient Name: Natanael Dyson Date of : 1995 29 year old female Treatment Room: Room/bed info not found Primary Care Physician: PATIENT DOES NOT HAVE A PCP Patient Escorted by: Self [9] Mode of Arrival: Personal means [1] EMS Treatment Prior to ED Arrival: CALL CENTER RN treatment: None Travel and Exposure Screening: Symptoms [...] days ago she presented for evaluation in [place]; she was told that she was dehydrated and would have to see a senior c software developer; however, she says that she cannot afford this. History provided by: Patient shape carver used: No Past Medical History/Immunizations: Past Medical [...] N/A 07/21/2019 Surgeon: Prasanna Vargas MD; Location: [facility] Labor and Delivery OR Location TUBAL LIGATION N/A 07/21/2019 Surgeon: Prasanna Vargas MD; Location: [facility] Labor [...] ABDOMEN LIMITED Final Result ORDERING PROVIDER: COLIN ELMORE MORRICAL HISTORY: N/v/diarrhea worsening [...] 0.01 - 0.07 10*3/uL COMP. METABOLIC PANEL (00875) - Abnormal NA 137 135 - 145 [...] LIMITED CBC WITH DIFF COMP. METABOLIC PANEL (52777) LIPASE URINALYSIS TROPONIN I TEST, SERUM O2 [...] Comments 02/22/24935 Medical Screening Begins ADRIANA PIEDRA -- 02/22/24935 First Provider Evaluation ADRIANA PIEDRA [...] Observation Condition -- Comment Treatment Team: KORI [[id number]] Discharge Medications: Patient's Medications START taking these medications No medications on file CONTINUE taking these medications which have NOT CHANGED ALBUTEROL 90 MCG/ACTUATION INHALER Inhale 2 Puffs every 6 (six) hours as needed for Wheezing or Shortness of Breath. BACLOFEN 10 MG TABLET Take 1 tablet by mouth every 6 (six) hours as needed. GCERSJHRER-UNYOOSVDENMKD-JBLI (FIORICET) 50-300-40 MG PER CAPSULE Take 1 [...] medications on file Follow-up: - Admitting to [facility] Electronically signed by: Adriana Piedra MD Internal Medicine PGY-3 [place] Team Adriana Piedra MD 02/22/24 1425 Associated [...] persistent vomiting noted after. Case discussed with [facility] team. Plan made to admit for intractable vomiting and persistent abd pain. Pt had recent CT and allergic reaction. Will defer repeat CT to primary team if needed as she will need pre-treatment for allergy Diagnosis: Intractable vomiting Abdominal pain Plan: Admit to Internal Medicine Janett Lou INTERNAL MEDICINE [facility] 2023-08-27 16:08:07 TRANSITIONAL CARE MANAGEMENT ASSESSMENT 08/27/2023 Natanael Dyson [id number] Natanael Dyson is a 28 year old /White female was admitted on 08/23/[address]. She was discharged on 08/24/23 with [...] Dominick Adamson 08/23/2023 - 08/24/2023 Neurology/Neurological Surgery ([address]). Pt. Access via the AVS page 4 there. Pt. Has gone under this chart Karis with no results found. Gave HIM contact number for further assistance. No linked episodes TCM Svm-nsqd-ru-face outreach documentation: Discharge Assessment Chart Assessed: 08/27/23 [...] 9:30 AM ADC MOBILE MRI 1 (1.5T) [facility] Radiology & Imaging, [facility] [phone] Marlys Odell LVN [facility] 2023-08-26 13:35:01 TRANSITIONAL CARE MANAGEMENT ASSESSMENT 08/26/2023 Natanael Dyson [id number] Natanael Dyson is a 28 year old /White female was admitted on 08/23/23 to [facility]. She was discharged on 08/24/23 with discharge disposition of HR- Routine Discharge. Admitting Physician: Roldan Walker Discharge Diagnosis: Cerebrovascular accident (CVA), unspecified mechanism [I63.9] No contact. No linked episodes TCM Cqb-xtwt-wv-face outreach documentation: Future Appointments: [facility] 2023-05-19 12:16:00 Pt given printed and verbal [...] with steady gait, in no apparent distress. 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 Patient states that she was worked up in [place] ER 2 weeks ago and found nothing wrong, just referred to a GI doctor but she hasn't seen one because she has no insurance. NNE Ruiz RN [facility] 2023-01-16 10:56:45 TRANSITIONAL CARE MANAGEMENT ASSESSMENT 01/16/2023 Natanael Dyson [id number] Natanael Dyson is a 27 year old /White female was admitted on 01/11/[address] She was discharged on 01/15/23 with discharge disposition of HR- Routine Discharge. Admitting Physician: Kun Steele Diagnosis: Postprocedural intraabdominal abscess [T81.43XA] Pt. Verbalized understanding discharge instructions. Plans to f/u with pcp. Linked Episodes Type: Episode: Status: Noted: Resolved: Last update: Updated by: TRANSITION OF CARE tcm Active 01/16/2023 01/16/2023 10:56 AM Marlys Odell LVN Comments: TCM Ziq-mrhq-rf-face outreach documentation: Discharge Assessment Chart Assessed: 01/16/23 [...] with the names or descriptions of any nsqf-lxq-tusvpyi or supplements you are currently taking?: Yes [...] concerns at this time?: No Future Appointments: amarcus Odell LVN [facility] 2023-01-15 18:18:34 Patient is cleared for discharge. [...] Vero Crews RN Outcome: Progressing as expected [facility] 2023-01-15 15:08:00 Called outpatient pharmacy and spoke to Maggi. Stated pharmacy will bring patient's medications to her room within 45min to an hour. T Vero Crews RN [facility] 2023-01-15 13:11:00 Problem: Infection Risk Goal: Absence of infection Outcome: Progressing as expected Problem: Pain Goal: Control of pain at or below patient's documented comfort goal Outcome: Progressing as expected Goal: Reduction in pain sensation Outcome: Progressing as expected Problem: Discharge Planning Goal: Adequate for discharge Outcome: Progressing as expected Goal: Effective communication Outcome: Progressing as expected [facility] 2023-01-15 06:25:22 Problem: Infection Risk Goal: Absence of infection Outcome: Progressing as expected Problem: Pain Goal: Control of pain at or below patient's documented comfort goal Outcome: Progressing as expected Goal: Reduction in pain sensation Outcome: Progressing as expected Problem: Discharge Planning Goal: Adequate for discharge Outcome: Progressing as expected Goal: Effective communication Outcome: Progressing as expected Katy Means RN [facility] 2023-01-14 09:27:52 Problem: Infection Risk Goal: Absence of infection Outcome: Progressing as expected Problem: Pain Goal: Control of pain at or below patient's documented comfort goal Outcome: Progressing as expected Goal: Reduction in pain sensation Outcome: Progressing as expected Problem: Discharge Planning Goal: Adequate for discharge Outcome: Progressing as expected Goal: Effective communication Outcome: Progressing as expected Charles Win RN [facility] 2023-01-13 22:20:47 Notified MD by bonny due to double dose of Tylenol being given. Per MD Brito no more Tylenol to be given for tonight. [facility] 2023-01-13 21:55:20 Problem: Infection Risk Goal: Absence of infection Outcome: Progressing as expected Problem: Pain Goal: Control of pain at or below patient's documented comfort goal Outcome: Progressing as expected Goal: Reduction in pain sensation Outcome: Progressing as expected Problem: Discharge Planning Goal: Adequate for discharge Outcome: Progressing as expected Goal: Effective communication Outcome: Progressing as expected [facility] [employer] 2023-01-13 08:20:43 Problem: Infection Risk Goal: Absence of infection Outcome: Progressing as expected Problem: Pain Goal: Control of pain at or below patient's documented comfort goal Outcome: Progressing as expected Goal: Reduction in pain sensation Outcome: Progressing as expected Problem: Discharge Planning Goal: Adequate for discharge Outcome: Progressing as expected Goal: Effective communication Outcome: Progressing as expected [facility] [employer] 2023-01-12 20:10:08 Problem: Infection Risk Goal: Absence of infection Outcome: Progressing as expected Problem: Pain Goal: Control of pain at or below patient's documented comfort goal Outcome: Progressing as expected Goal: Reduction in pain sensation Outcome: Progressing as expected Problem: Discharge Planning Goal: Adequate for discharge Outcome: Progressing as expected Goal: Effective communication Outcome: Progressing as expected [facility] [employer] 2023-01-12 09:28:38 Problem: Infection Risk Goal: Absence of infection Outcome: Progressing as expected Problem: Pain Goal: Control of pain at or below patient's documented comfort goal Outcome: Progressing as expected Goal: Reduction in pain sensation Outcome: Progressing as expected Problem: Discharge Planning Goal: Adequate for discharge Outcome: Progressing as expected Goal: Effective communication Outcome: Progressing as expected [facility] [employer] 2023-01-12 05:17:00 Problem: Infection Risk Goal: Absence of infection Outcome: Progressing as expected Problem: Pain Goal: Control of pain at or below patient's documented comfort goal Outcome: Progressing as expected Goal: Reduction in pain sensation Outcome: Progressing as expected Problem: Discharge Planning Goal: Adequate for discharge Outcome: Progressing as expected Goal: Effective communication Outcome: Progressing as expected [facility] 2023-01-12 01:43:06 Report to lisy CURRIE on 9C. Pt awaiting transport Melvin Villegas RN [facility] 2023-01-12 01:10:30 Attempted report, nurse unavailable, left callback number [facility] 2023-01-12 00:24:49 Surgery at bedside [facility] 2023-01-11 23:08:11 made aware of pt increased pain and nausea [facility] 2023-01-11 22:34:[address], warm blanket given [facility] 2023-01-11 22:18:[address] scan [facility] 2023-01-11 21:30:08 Natanael Dyson is a 27 [...] liver. Denies vomiting, denies blood in stool. [facility] [employer] 2023-01-11 21:03:38 Natanael Dyson is a 27 year old female here today c/o abdominal pain x 2 days. Pt denies N/V but reports diarrhea. Pt reports "9/10" pain at this time. Pt reports pain travels down right side abdomen. Pt is A&Ox4, NAD Noted. RR even/unlabored. [facility] 2023-01-11 20:44:00 [facility] Emergency Department Note Patient Name: Natanael Dyson Date of : 1995 27 year old female Treatment Room: [address] [place] [address] Primary Care Physician: Luke Baker Patient Escorted by: Family [5] Mode of Arrival: Personal means [1] EMS Treatment Prior to ED Arrival: CALL CENTER RN treatment: None Travel and Exposure Screening: Symptoms [...] 1 month ago that was done at [place]. Due to the worsening discomfort patient has, for further evaluation at [facility]. Patient states that during her [...] when she sits up. Patient has discontinued [place] and anxiety medication due to concern for her liver. She is only used a heating pad for her symptoms with minimal improvement. History provided by: Patient shape carver used: No Past Medical History/Immunizations: Past Medical [...] N/A 07/21/2019 Surgeon: Prasanna Vargas MD; Location: [facility] Labor and Delivery OR Location TUBAL LIGATION N/A 07/21/2019 Surgeon: Prasanna Vargas MD; Location: [facility] Labor [...] are negative. Physical Exam: ED Triage Vitals [01/11/23 2103] Weight 68 kg (150 lb) Actual or [...] 0 - 220 U/L COMP. METABOLIC PANEL (55005) TOTAL BETA HCG ASSAY EXTRA TUBE ORANGE EXTRA TUBE LAV EKG: If EKG completed, see Procedure Note. Orders and Treatments: Orders Placed This Encounter Procedures CT ABDOMEN PELVIS W CONTRAST POCT TEST URINALYSIS LIPASE COMP. METABOLIC PANEL (37141) TOTAL BHCG (QUANTITATIVE) Orders Placed This Encounter [...] mouth every 6 (six) hours as needed. MVVZUCYKIC-MZZJGEEAPDZLB-NDMY (FIORICET) 50-300-40 MG PER CAPSULE Take 1 [...] in the Gallbladder fossa, post-recent cholecystectomy in [place]. General surgery was consulted and admitted the patient for further workup and management. [facility] 2022-12-03 08:57:03 Patient has an appointment 12/12/22. Blayne Silva RN 12/03/2022 8:57 AM Blayne Silva RN [facility]
[2024-07-21] MEDS ORDERED: HYDROCODONE/APAP 5/325 MG TAB ONE (10:50)
[2024-07-21 10:58] LABS: Specific Gravity 1.026 (1.005-1.030)
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
[2024-07-21 12:09] VITALS: BP 133/89; TEMP 98.4; O2SAT 100
== END 2024-07-21 12:06 | disposition home or self-care (01) ==
LOC: ER 10:04
DX: S00.33XA Contusion of nose, initial encounter (principal)
CPT/HCPCS: 70486; 76377; 81025; 99284

== ENCOUNTER 2024-08-02 02:02 | Emergency (ER) | payer OTHER ==
--- OUTSIDE RECORDS SUMMARY | 2024-08-02 02:23 | XMS REPORT | Continuity of Care Document ---
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 the evening. [facility] acetaminoph en (OFIRMEV) IV piggyback 1,000 mg 2023-05 07:15: 00 03-13 07:05 :00 No 1000mg 1,000 mg, IV Piggyback, at 400 mL/hr Administer over 15 Minutes, ONCE, 1 dose, On Sat03/13/24 at 0215, Routine, Is the patient strict NPO and unable to tolerate oral medication s? Yes [facility] methylpredn isolone sod succ (SOLU-MEDRO L) injection 44.375 mg 2023-05 04:15: 00 03-13 05:06 :00 No 1mg/kg 44.375 mg (rounded from 44.5 mg = 1 mg/kg ?44.5 kg), Intravenou s, ONCE, 1 dose, On Sat03/12/24 at 2315, 2 mL [facility] iopamidol (ISOVUE 370-500 mL) injection 80 mL 2023-05 03:16: 00 03-13 03:00 :00 No [id number] 80mL 80 mL, Intravenou s, ONCE, 1 dose, On Sat03/12/24 at 2230, Routine [facility] diphenhydrA MINE (BENADRYL) injection 100 mg 2023-05 03:00: 00 03-13 05:06 :00 No [id number] 100mg 100 mg, Slow IV Push, ONCE, 1 dose, On Sat03/12/24 at 2200, STAT [facility] budesonide (PULMICORT RESPULE) nebulizer solution 1 mg 2023-05 01:00: 00 Yes 1mg 1 mg, Inhalation , BID, First dose on Sat03/12/24 at 2000, Until Discontinu ed, Routine [facility] amitriptyli ne 25 mg tablet 2023-05 00:00: 00 Yes [id number] 25mg Take 1 tablet by mouth at bedtime. [facility] budesonide 0.5 mg/2 mL nebulizer solution 2023-05 00:00: 00 06-06 05:59 :00 No [id number] 1mg Inhale 4 mL in the morning and 4 mL in the evening. Do all this for 84 days. [facility] diphenhydrA MINE 25 mg tablet 2023-05 00:00: 00 03-21 05:59 :00 No [id number] 25mg Take 1 tablet by mouth every 6 (six) hours as needed for Allergies for up to 7 days. [facility] methylPREDN ISolone sod succ (SOLU-MEDRO L (PF)) injection 40 mg 2023-05 23:45: 00 03-13 01:24 :00 No 40mg 40 mg, Intravenou s, ONCE, 1 dose, On Sat03/12/24 at 1845, 1 mL [facility] diphenhydrA MINE (BENADRYL) injection 50 mg 2023-05 23:45: 00 03-13 01:23 :00 No 50mg 50 mg, Intravenou s, ONCE, 1 dose, On Sat03/12/24 at 1845, Routine [facility] methylPREDN ISolone sod succ (SOLU-MEDRO L (PF)) injection 40 mg 2023-05 20:45: 00 03-12 20:53 :00 No 40mg 40 mg, Intravenou s, ONCE, 1 dose, On Sat03/12/24 at 1545, 1 mL [facility] diphenhydrA MINE (BENADRYL) injection 25 mg 2023-05 20:30: 00 03-12 20:58 :00 No 25mg 25 mg, Intravenou s, ONCE, 1 dose, On Sat03/12/24 at 1545, Routine [facility] diphenhydrA MINE (BENADRYL) injection 25 mg 2023-05 16:30: 00 03-12 16:16 :00 No 25mg 25 mg, Intravenou s, ONCE, 1 dose, On Sat03/12/24 at 1130, Routine [facility] diazePAM (VALIUM) injection 2 mg 2023-05 15:45: 00 03-13 13:38 :00 No 2mg 2 mg, Slow IV Push, BID, First dose on Sat03/12/24 at 1045, Until Discontinu ed, Routine [facility] Potassium Bicarb-Citr ic Acid (EFFER-K) effervescen t tablet 40 mEq 2023-05 03:45: 00 03-12 03:18 :00 No 40meq 40 mEq, Oral, ONCE, 1 dose, On Sat03/11/24 at 2245, Routine [facility] amitriptyli ne (ELAVIL) tablet 25 mg 2023-05 02:00: 00 Yes 25mg 25 mg, Oral, QHS, First dose on Sat03/11/24 at 2100, Until Discontinu ed, Routine [facility] budesonide (PULMICORT RESPULE) nebulizer solution 0.25 mg 2023-05 20:30: 00 03-12 15:40 :27 No .25mg 0.25 mg, Inhalation , BID, First dose (after last modificati on) on Sat03/11/24 at 1530, Until Discontinu ed, Routine [facility] morpHINE injection 2 mg 2023-05 18:00: 00 03-11 18:18 :00 No 2mg 2 mg, Slow IV Push, ONCE, 1 dose, On Sat03/11/24 at 1300, Routine [facility] proMETHazin e (PHENERGAN) 12.5 mg in NS 50 mL IV piggyback (CNR) 2023-05 16:08: 36 03-13 06:15 :30 No 12.5mg 12.5 mg, IV Piggyback, at 200 mL/hr Administer over 15 Minutes, Q4HPRN, Starting on Sat03/11/24 at 1108, Until Sat03/13/24 at 0115, [place], Nausea and Vomiting (N/V) [facility] diphenhydrA MINE (BENADRYL) injection 25 mg 2023-05 15:45: 00 03-11 15:14 :00 No 25mg 25 mg, Intravenou s, ONCE, 1 dose, On Sat03/11/24 at 1045, Routine [facility] morphine (2 mg/mL) injection 4 mg 2023-05 13:44: 13 03-11 17:55 :50 No 4mg 4 mg, Slow IV Push, Q4HPRN, Starting on Sat03/11/24 at 0844, Until Sat03/11/24 at 1255, Routine, Pain (scale 7-10) [facility] magnesium sulfate in water 4 gram/50 mL (8 %) IV Piggyback 4 g 2023-05 13:00: 00 03-11 16:09 :00 No 4g 4 g, IV Piggyback, at 25 mL/hr Administer over 120 Minutes, ONCE, 1 dose, On Sat03/11/24 at 0800, Routine [facility] tetracyclin e (ACHROMYCIN ) capsule 500 mg 2023-05 13:00: 00 03-11 16:07 :08 No 500mg 500 mg, Oral, QID, 112 doses, First dose on Sat03/11/24 at 0800, Last dose on Sat04/07/24 at 2000, [place], Reason for Anti-Infec tive: Documented Infection, Documented Infection Site: Abdominal, Duration of Therapy: 14 days [facility] metroNIDAZO LE (FLAGYL) tablet 500 mg 2023-05 13:00: 00 03-11 16:07 :08 No 500mg 500 mg, Oral, QID, First dose on Sat03/11/24 at 0800, Until Discontinu ed, Routine, Reason for Anti-Infec tive: Documented Infection, Documented Infection Site: Abdominal, Duration of Therapy: 14 days [facility] bismuth subsalicyla te (PEPTO BISMOL) chewable tablet 524 mg 2023-05 13:00: 00 03-11 16:07 :08 No 524mg 524 mg, Oral, QID, First dose on Sat03/11/24 at 0800, Until Discontinu ed [facility] lactated ringers IV infusion 1,000 mL 2023-05 08:30: 00 03-11 16:29 :00 No 1000mL at 125 mL/hr, 1,000 mL, IV Infusion, CONTINUOUS , Starting on Sat03/11/24 at 0330, Until Sat03/11/24 at 1129, Routine [facility] trimethoben zamide (TIGAN) injection 100 mg 2023-05 05:12: 20 03-13 16:08 :09 No 100mg 100 mg, Intramuscu lar, Q6HPRN, Starting on Sat03/11/24 at 0012, Until Sat03/13/24 at 1108, Routine, Nausea and Vomiting (N/V), alternate with zofran [facility] ondansetron (ZOFRAN (PF)) injection 4 mg 2023-05 03:42: 41 03-11 16:10 :43 No 4mg 4 mg, Slow IV Push, Q6HPRN, Starting on Sat03/10/24 at 2242, Until Sat03/11/24 at 1110, [place], Nausea and Vomiting (N/V) [facility] pantoprazol e (PROTONIX) injection 40 mg 2023-05 03:30: 00 03-13 16:08 :09 No 40mg 40 mg, Slow IV Push, Q12H, First dose on Sat03/10/24 at 2230, Until Discontinu ed [facility] morpHINE injection 4 mg 2023-05 03:21: 30 03-11 13:44 :25 No 4mg 4 mg, Slow IV Push, Q4HPRN, Starting on Sat03/10/24 at 2221, Until Sat03/11/24 at 0844, Routine, Pain (scale 7-10) [facility] acetaminoph en (TYLENOL) tablet 650 mg 2023-05 03:21: 25 03-13 16:08 :09 No 650mg [facility] morpHINE injection 4 mg 2023-05 02:00: 00 03-11 01:10 :00 No 4mg 4 mg, Slow IV Push, ONCE, 1 dose, On Sat03/10/24 at 2100, STAT [facility] trimethoben zamide (TIGAN) injection 100 mg 2023-05 02:00: 00 03-11 02:05 :00 No 100mg 100 mg, Intramuscu lar, ONCE, 1 dose, On Sat03/10/24 at 2100, Routine [facility] morpHINE injection 4 mg 2023-05 21:30: 00 03-10 22:20 :00 No 4mg 4 mg, Slow IV Push, ONCE, 1 dose, On Sat03/10/24 at 1630, STAT [facility] proMETHazin e (PHENERGAN) 25 mg in NS 50 mL IV piggyback (CNR) 2023-05 21:00: 00 03-10 22:30 :00 No 25mg 25 mg, IV Piggyback, at 200 mL/hr Administer over 15 Minutes, ONCE, 1 dose, On Sat03/10/24 at 1600, [place] [facility] diphenhydrA MINE (BENADRYL) injection 25 mg 2023-05 19:00: 00 03-10 19:12 :00 No 25mg 25 mg, Slow IV Push, ONCE, 1 dose, On Sat03/10/24 at 1400, STAT [facility] ondansetron (ZOFRAN (PF)) injection 4 mg 2023-05 18:30: 00 03-10 18:34 :00 No 4mg 4 mg, Slow IV Push, ONCE, 1 dose, On Sat03/10/24 at 1330, [facility] acute [facility] diphenhydrA MINE:lidoca ine 2% viscous:maa lox 1:1:1 (FIRST-MOUT HWASH BLM) oral suspension 15 mL 2023-05 17:15: 00 03-10 18:34 :00 No 15mL 15 mL, Oral, ONCE, 1 dose, On Sat03/10/24 at 1215, Routine [facility] NaCl 0.9% (NS) bolus infusion 1,500 mL 2023-05 16:30: 00 03-11 00:19 :00 No 1500mL at 999 mL/hr, 1,500 mL, IV Infusion, ONCE, 1 dose, On Sat03/10/24 at 1130, [facility] morpHINE injection 4 mg 2023-05 16:30: 00 03-10 16:33 :00 No 4mg 4 mg, Slow IV Push, ONCE, 1 dose, On Sat03/10/24 at 1130, [facility] ondansetron (ZOFRAN (PF)) injection 4 mg 2023-05 15:30: 00 03-10 15:54 :00 No 4mg 4 mg, Slow IV Push, ONCE, 1 dose, On Sat03/10/24 at 1030, [facility] acute [facility] pantoprazol e (PROTONIX) EC tablet 40 mg 2023-0525 01:00: 00 03-05 22:06 :08 No 40mg 40 mg, Oral, BID, First dose on Sat03/05/24 at 2000, Until Discontinu ed, Routine [facility] bismuth subsalicyla te (PEPTO BISMOL) chewable tablet 524 mg 2023-05 17:00: 00 03-05 22:06 :08 No 524mg 524 mg, Oral, QID, 56 doses, First dose on Sat03/05/24 at 1200, Last dose on Sat03/19/24 at 0800, Routine [facility] tetracyclin e (ACHROMYCIN ) capsule 500 mg 2023-05 13:00: 00 03-05 22:06 :08 No 500mg 500 mg, Oral, QID, 56 doses, First dose on Sat03/05/24 at 0800, Last dose on Sat03/18/24 at 2000, [place], Reason for Anti-Infec tive: Documented Infection, Documented Infection Site: Abdominal, Duration of Therapy: 14 days [facility] metroNIDAZO LE (FLAGYL) tablet 500 mg 2023-05 11:30: 00 03-05 22:06 :08 No 500mg 500 mg, Oral, Q8H, 42 doses, First dose on Sat03/05/24 at 0630, Last dose on Sat03/18/24 at 2200, Routine, Reason for Anti-Infec tive: Documented Infection, Documented Infection Site: Abdominal, Duration of Therapy: 14 days [facility] pantoprazol e (PROTONIX) injection 40 mg 2023-05 01:00: 00 03-05 16:38 :50 No 40mg 40 mg, Slow IV Push, Q12H, First dose on Sat03/04/24 at 2000, Until Discontinu ed [facility] metroNIDAZO LE 500 mg tablet 2023-05 00:00: 00 Yes [id number] 500mg Take 1 tablet by mouth 4 (four) times daily. [facility] tetracyclin e 500 mg capsule 2023-05 00:00: 00 Yes [id number] 500mg Take 1 capsule by mouth 4 (four) times daily. [facility] bismuth subsalicyla te 525 mg Tab 2023-05 00:00: 00 Yes [id number] 525mg Take 525 mg by mouth 4 (four) times daily. [facility] omeprazole 20 mg capsule 2023-05 00:00: 00 Yes [id number] 20mg Take 1 capsule by mouth in the morning and 1 capsule in the evening. [facility] ondansetron 4 mg disintegrat ing tablet 2023-05 00:00: 00 Yes [id number] 4mg Take 1 tablet by mouth every 8 (eight) hours as needed for Nausea and Vomiting (N/V). [facility] enoxaparin (LOVENOX) injection 40 mg 2023-05 22:00: 00 03-05 22:06 :08 No 40mg 40 mg, Subcutaneo us, DAILY, First dose on Sat03/04/24 at 1700, Until Discontinu ed, Routine [facility] hydrOXYzine (ATARAX) tablet 10 mg 2023-05 20:02: 48 03-05 22:06 :08 No 10mg 10 mg, Oral, Q6HPRN, Starting on Sat03/04/24 at 1502, Until Kathie 03/05/24 at 1706, Routine, Anxiety [facility] morphine (2 mg/mL) injection 4 mg 2023-05 19:15: 05 03-05 19:09 :51 No 4mg 4 mg, Slow IV Push, Q6HPRN, Starting on Sat03/04/24 at 1415, Until Kathie 03/05/24 at 1409, Routine, Pain (scale 7-10) [facility] proMETHazin e (PHENERGAN) 12.5 mg in NS 50 mL IV piggyback (CNR) 2023-05 19:13: 41 03-05 22:06 :08 No 12.5mg 12.5 mg, IV Piggyback, at 200 mL/hr Administer over 15 Minutes, Q4HPRN, Starting on Sat03/04/24 at 1413, Until Kathie 03/05/24 at 1706, Routine, N/V unresponsi ve to Ondansetro n [facility] ondansetron (ZOFRAN (PF)) injection 4 mg 2023-05 19:10: 57 03-05 22:06 :08 No 4mg 4 mg, Slow IV Push, Q6HPRN, Starting on Sat03/04/24 at 1410, Until Sat03/05/24 at 1706, Routine, Nausea and Vomiting (N/V) [facility] HYDROcodone -acetaminop hen (NORCO 5) tablet 1 tablet 2023-05 19:10: 38 03-05 22:06 :08 No 1{tbl} 1 tablet, Oral, Q6HPRN, Starting on Sat03/04/24 at 1410, Until Kathie 03/05/24 at 1706, Routine, Pain (scale 4-6) [facility] acetaminoph en (TYLENOL) tablet 650 mg 2023-05 19:10: 34 03-05 22:06 :08 No 650mg [facility] morphine (2 mg/mL) injection 4 mg 2023-05 16:15: 00 03-04 16:19 :00 No 4mg 4 mg, Slow IV Push, ONCE, 1 dose, On Sat03/04/24 at 1115, [place] [facility] ondansetron (ZOFRAN (PF)) injection 4 mg 2023-05 16:15: 00 03-04 16:19 :00 No 4mg 4 mg, Slow IV Push, ONCE, 1 dose, On Sat03/04/24 at 1115, [place] [facility] morphine (2 mg/mL) injection 4 mg 2023-05 13:15: 00 03-04 13:57 :00 No 4mg 4 mg, Slow IV Push, ONCE, 1 dose, On Sat03/04/24 at 0815, STAT [facility] pantoprazol e (PROTONIX) injection 40 mg 2023-05 13:15: 00 03-04 14:04 :00 No 40mg 40 mg, Slow IV Push, ONCE, 1 dose, On Sat03/04/24 at 0815 [facility] NaCl 0.9% (NS) bolus infusion 1,000 mL 2023-05 13:15: 00 03-04 16:51 :00 No 1000mL at 999 mL/hr, 1,000 mL, IV Infusion, ONCE, 1 dose, On Sat03/04/24 at 0815, [place] [facility] ondansetron (ZOFRAN (PF)) injection 4 mg 2023-05 12:15: 00 03-04 13:56 :00 No 4mg 4 mg, Slow IV Push, ONCE, 1 dose, On Sat03/04/24 at 0715, [place] [facility] escitalopra m oxalate 20 mg tablet 2023-05 00:00: 00 Yes 20mg Take 1 tablet by mouth in the morning. [facility] eszopiclone 3 mg tablet 2023-05 00:00: 00 Yes 3mg Take 1 tablet by mouth at bedtime. [facility] bismuth subsalicyla te 525 mg Tab 2023-05 00:00: 00 03-05 00:00 :00 No [id number] 525mg Take 525 mg by mouth 4 (four) times daily for 14 days. [facility] metroNIDAZO LE 500 mg tablet 2023-05 00:00: 00 03-05 00:00 :00 No [id number] 500mg Take 1 tablet by mouth 4 (four) times daily for 14 days. [facility] tetracyclin e 500 mg capsule 2023-05 00:00: 00 03-05 00:00 :00 No [id number] 500mg Take 1 capsule by mouth 4 (four) times daily for 14 days. [facility] omeprazole 20 mg capsule 2023-05 00:00: 00 03-05 00:00 :00 No [id number] 20mg Take 1 capsule by mouth in the morning and 1 capsule in the evening. Do all this for 14 days. [facility] pantoprazol e (PROTONIX) EC tablet 40 mg 2023-05 16:45: 00 02-26 23:59 :22 No 40mg 40 mg, Oral, BID, First dose (after last modificati on) on Kathie 02/27/24 at 1145, Until Discontinu ed, Routine [facility] lactated ringers IV infusion 2023-05 15:19: 00 02-26 15:26 :52 No IV Infusion, CONTINUOUS PRN, Starting on Kathie 02/27/24 at 1019, Until Kathie 02/27/24 at 1026, Routine, Intra-op [facility] simethicone (GAS RELIEF (SIMETHICON E)) 40 mg/0.6 mL drops 2023-05 14:57: 00 02-26 16:34 :28 No PRN, Starting on Kathie 02/27/24 at 0957, Until Kathie 02/27/24 at 1134, Routine, Intra-op [facility] PHENYLephri ne 1000 mcg/10 mL in 0.9% NaCl syringe 2023-05 14:50: 00 02-26 15:26 :52 No Intravenou s, ONCE INTRA PROCEDURE, Starting on Kathie 02/27/24 at 0950, Until Kathie 02/27/24 at 1026, Routine, Intra-op [facility] dexmedeTOMI Dine (PRECEDEX) injection 2023-05 14:27: 00 02-26 15:26 :52 No Intravenou s, ONCE INTRA PROCEDURE, Starting on Kathie 02/27/24 at 0927, Until Kathie 02/27/24 at 1026, Routine, Intra-op [facility] propofoL IV infusion 2023-05 14:26: 00 02-26 15:26 :52 No IV Infusion, ONCE INTRA PROCEDURE, Starting on Kathie 02/27/24 at 0926, Until Kathie 02/27/24 at 1026, Routine, Intra-op [facility] lidocaine 1% (XYLOCAINE) 100 mg/10 mL (1 %) injection 2023-05 14:26: 00 02-26 15:26 :52 No Intravenou s, ONCE INTRA PROCEDURE, Starting on Kathie 02/27/24 at 0926, Until Kathie 02/27/24 at 1026, Routine, Intra-op [facility] FENTanyl (PF) (SUBLIMAZE) injection 2023-05 14:26: 00 02-26 15:26 :52 No Intravenou s, ONCE INTRA PROCEDURE, Starting on Kathie 02/27/24 at 0926, Until Kathie 02/27/24 at 1026, Routine, Intra-op [facility] midazolam (VERSED) injection 2023-05 14:24: 00 02-26 15:26 :52 No IV Push, ONCE INTRA PROCEDURE, Starting on Kathie 02/27/24 at 0924, Until Kathie 02/27/24 at 1026, Routine, Intra-op [facility] NaCl 0.9% (NS) IV infusion 2023-05 14:22: 00 02-26 15:26 :52 No IV Infusion, CONTINUOUS PRN, Starting on Kathie 02/27/24 at 0922, Until Kathie 02/27/24 at 1026, Routine, Intra-op [facility] sodium phosphates (READY-TO-U SE ENEMA) 19-7 gram/118 mL enema 1 Enema 2023-05 10:00: 00 02-26 10:05 :00 No 1{enema } 1 Enema, Rectal, ONCE, 1 dose, On Sat02/27/24 at 0500, Routine [facility] polyethylen e glycol 3350 powder 17 g 2023-05 01:00: 00 02-26 21:59 :19 No 17g 17 g, Oral, BID, First dose (after last modificati on) on Sat02/26/24 at 2000, Until Discontinu ed, Routine [facility] ondansetron 4 mg disintegrat ing tablet 2023-05 00:00: 00 03-05 00:00 :00 No [id number] 4mg Take 1 tablet by mouth every 8 (eight) hours as needed for Nausea and Vomiting (N/V). [facility] pantoprazol e 40 mg EC tablet 2023-05 00:00: 00 03-05 00:00 :00 No [id number] 40mg Take 1 tablet by mouth in the morning and 1 tablet in the evening. [facility] amitriptyli ne 25 mg tablet 2023-05 00:00: 00 03-04 00:00 :00 No [id number] 25mg Take 1 tablet by mouth at bedtime. [facility] acetaminoph en-codeine 300-30 mg tablet 2023-05 00:00: 00 02-26 00:00 :00 No [id number] 1{tbl} Take 1 tablet by mouth every 4 (four) hours as needed for Pain (scale 7-10) for up to 7 days. Indication s: acute pain [facility] simethicone (GAS RELIEF (SIMETHICON E)) chewable tablet 80 mg 2023-05 23:00: 00 02-26 21:59 :19 No 80mg 80 mg, Oral, PC+HS, First dose on Sat02/26/24 at 1800, Until Discontinu ed, Routine [facility] morphine (2 mg/mL) injection 2 mg 2023-05 20:22: 36 02-26 21:59 :19 No 2mg 2 mg, Slow IV Push, Q4HPRN, Starting on Sat02/26/24 at 1522, Until Kathie 02/27/24 at 1659, Routine, Pain (scale 4-6) [facility] morphine (2 mg/mL) injection 4 mg 2023-05 20:22: 32 02-26 21:59 :19 No 4mg 4 mg, Slow IV Push, Q4HPRN, Starting on Sat02/26/24 at 1522, Until Kathie 02/27/24 at 1659, Routine, Pain (scale 7-10) [facility] LORazepam (ATIVAN) injection 0.5 mg 2023-05 18:39: 21 02-26 21:59 :19 No .5mg 0.5 mg, Slow IV Push, Q6HPRN, Starting on Sat02/26/24 at 1339, Until Kathie 02/27/24 at 1659, Routine, Anxiety [facility] bisacodyL (DULCOLAX) suppository 10 mg 2023-05 18:17: 00 02-25 18:47 :00 No 10mg 10 mg, Rectal, ONCE NOW, 1 dose, On Sat02/26/24 at 1330, Routine [facility] acetaminoph en (OFIRMEV) IV piggyback 1,000 mg 2023-05 15:30: 00 02-25 15:03 :00 No 1000mg 1,000 mg, IV Piggyback, at 400 mL/hr Administer over 15 Minutes, ONCE, 1 dose, On Sat02/26/24 at 1030, Routine, Is the patient strict NPO and unable to tolerate oral medication s? Yes [facility] bisacodyL (DULCOLAX) tablet 5 mg 2023-05 14:30: 00 02-26 21:59 :19 No 5mg 5 mg, Oral, DAILY, First dose on Sat02/26/24 at 0930, Until Discontinu ed, Routine [facility] amitriptyli ne (ELAVIL) tablet 25 mg 2023-05 02:00: 00 02-26 23:59 :22 No 25mg 25 mg, Oral, QHS, First dose on Sat02/25/24 at 2100, Until Discontinu ed, Routine [facility] morphine (2 mg/mL) injection 4 mg 2023-05 18:49: 53 02-25 14:28 :08 No 4mg 4 mg, Slow IV Push, Q4HPRN, Starting on Sat02/25/24 at 1349, Until Sat02/26/24 at 0928, Routine, Pain (scale 7-10) [facility] morphine (2 mg/mL) injection 2 mg 2023-0515 18:49: 15 02-25 14:28 :08 No 2mg 2 mg, Slow IV Push, Q4HPRN, Starting on Sat02/25/24 at 1349, Until Sat02/26/24 at 0928, Routine, Pain (scale 7-10) [facility] gadobenate dimeglumine (MULTIHANCE -10 mL) injection 9.08 mL 2023-05 17:30: 00 02-24 17:30 :00 No [id number] .2mL/kg 9.08 mL (0.2 mL/kg ?45.4 kg), Intravenou s, ONCE, 1 dose, On Sat02/25/24 at 1230, [facility] 1 mg 2023-05 17:00: 00 02-24 16:25 :00 No 1mg 1 mg, Slow IV Push, ONCE, 1 dose, On Sat02/25/24 at 1200, STAT [facility] polyethylen e glycol 3350 powder 17 g 2023-05 16:00: 00 02-25 14:24 :01 No 17g 17 g, Oral, DAILY, First dose on Sat02/25/24 at 1100, Until Discontinu ed, Routine [facility] lactated ringers IV infusion 1,000 mL 2023-05 13:15: 02-26 21:59 :19 No 1000mL at 125 mL/hr, 1,000 mL, IV Infusion, CONTINUOUS , Starting on Sat02/25/24 at 0815, Until Sat02/27/24 at 1659, Routine [facility] potassium chloride in water (KCL) 20 mEq/100 mL IV infusion 20 mEq 2023-05 13:00: 00 02-24 13:30 :00 No 20meq 20 mEq, IV Infusion, at 50 mL/hr Administer over 2 Hours, ONCE, 1 dose, On Sat02/25/24 at 0800, Routine [facility] melatonin (MELATIN) tablet 3 mg 2023-05 02:00: 00 02-26 21:59 :19 No 3mg 3 mg, Oral, QHS, First dose on Sat02/24/24 at 2100, Until Discontinu ed, Routine [facility] lactated ringers IV infusion 500 mL 2023-05 19:30: 00 02-24 09:54 :00 No 500mL at 999 mL/hr, 500 mL, IV Infusion, ONCE, 1 dose, On Sat02/24/24 at 1430, Routine [facility] Lidocaine (LIDOCARE) 4 % patch 1 Patch 2023-05 18:00: 00 02-24 05:15 :00 No 1{patch } 1 Patch, Topical, Administer over 12 Hours, ONCE, 1 dose, On Sat02/24/24 at 1300, Routine [facility] LORazepam (ATIVAN) injection 0.5 mg 2023-05 12:25: 30 02-25 18:39 :43 No .5mg 0.5 mg, Slow IV Push, Q6HPRN, Starting on Sat02/24/24 at 0725, Until Sat02/26/24 at 1339, Routine, Anxiety, Agitation [facility] diphenhydrA MINE (BENADRYL) injection 25 mg 2023-05 01:40: 29 02-23 14:54 :01 No 25mg 25 mg, Intravenou s, Q6HPRN, Starting on Sat02/23/24 at 2040, Until Sat02/24/24 at 0954, Routine, Nausea and Vomiting (N/V) [facility] LORazepam (ATIVAN) injection 0.5 mg 2023-05 01:39: 00 02-23 02:48 :00 No .5mg 0.5 mg, Slow IV Push, ONCE, 1 dose, On Sat02/23/24 at 2045, Routine [facility] diphenhydrA MINE (BENADRYL) injection 25 mg 2023-05 14:19: 13 02-23 01:14 :28 No 25mg 25 mg, Intravenou s, Q6HPRN, Starting on Sat02/23/24 at 0919, Until Sat02/23/24 at 2014, Routine, Nausea and Vomiting (N/V) [facility] ondansetron (ZOFRAN (PF)) injection 4 mg 2023-05 14:18: 38 02-26 21:59 :19 No 4mg 4 mg, Slow IV Push, Q6HPRN, Nausea and Vomiting (N/V), Starting on 02/23/24 at 0918, Doses of ondansetro n 16 mg and above need to be administer ed via IV piggyback. For Dose >=24mg ECG monitoring is advisable. [facility] pantoprazol e (PROTONIX) injection 40 mg 2023-05 11:53: 00 02-25 19:46 :39 No 40mg 40 mg, Slow IV Push, Q24H, First dose (after last modificati on) on 02/23/24 at 0700, Until Discontinu ed [facility] cariprazine (VRAYLAR) 1.5 mg capsule 2023-05 09:24: 25 Yes 1.5mg Take 1 capsule by mouth in the morning. [facility] LORazepam 0.5 mg tablet 2023-05 09:24: 25 Yes .5mg Take 1 tablet by mouth. [facility] diphenhydrA MINE (BENADRYL) injection 25 mg 2023-05 03:57: 18 02-22 14:19 :23 No 25mg 25 mg, Intravenou s, Q4HPRN, Starting on 02/22/24 at 2257, Until 02/23/24 at 0919, Routine, Nausea and Vomiting (N/V) [facility] heparin (porcine) injection 5,000 Units 2023-05 01:00: 00 02-26 21:59 :19 No 5000U 5,000 Units, Subcutaneo us, Q12H, First dose on 02/22/24 at 2000, Until Discontinu ed, Routine [facility] morphine (2 mg/mL) injection 4 mg 2023-05 19:33: 18 02-24 15:57 :38 No 4mg 4 mg, Slow IV Push, Q4HPRN, Starting on 02/22/24 at 1433, Until 02/25/24 at 1057, Routine, Pain (scale 7-10) [facility] proMETHazin e (PHENERGAN) 25 mg in NS 50 mL IV piggyback (CNR) 2023-05 19:33: 05 02-22 14:19 :00 No 25mg 25 mg, IV Piggyback, at 200 mL/hr Administer over 15 Minutes, Q4HPRN, Starting on 02/22/24 at 1433, Until 02/23/24 at 0919, [place], Nausea and Vomiting (N/V) [facility] metoprolol tartrate 50 mg tablet 2023-05 19:26: 59 02-26 00:00 :00 No 50mg Take 1 tablet by mouth in the morning and 1 tablet in the evening. [facility] escitalopra m oxalate (LEXAPRO) 10 mg tablet 2023-05 19:26: 59 02-26 00:00 :00 No 10mg Take 1 tablet by mouth in the morning. [facility] morphine (2 mg/mL) injection 4 mg 2023-05 17:45: 00 02-21 18:20 :00 No 4mg 4 mg, Slow IV Push, ONCE, 1 dose, On 02/22/24 at 1245, STAT [facility] proMETHazin e (PHENERGAN) 25 mg in NS 50 mL IV piggyback (CNR) 2023-05 16:45: 00 02-21 17:33 :00 No 25mg 25 mg, IV Piggyback, at 200 mL/hr Administer over 15 Minutes, ONCE, 1 dose, On 02/22/24 at 1145, [place] [facility] morphine (2 mg/mL) injection 4 mg 2023-05 16:00: 00 02-21 16:06 :00 No 4mg 4 mg, Slow IV Push, ONCE, 1 dose, On 02/22/24 at 1100, STAT [facility] famotidine (PEPCID (PF)) injection 20 mg 2023-05 15:00: 00 02-21 15:35 :00 No 20mg 20 mg, Slow IV Push, ONCE, 1 dose, On 02/22/24 at 1000, [place] [facility] ondansetron (ZOFRAN (PF)) injection 4 mg 2023-05 15:00: 00 02-21 15:34 :00 No 4mg 4 mg, Slow IV Push, ONCE, 1 dose, On 02/22/24 at 1000, [place] [facility] NaCl 0.9% (NS) bolus infusion 1,000 mL 2023-05 15:00: 00 02-21 18:06 :00 No 1000mL at 999 mL/hr, 1,000 mL, IV Infusion, ONCE, 1 dose, On 02/22/24 at 1000, STAT [facility] buPROPion XL 150 mg 24 hr tablet 01-22 00:00: 00 Yes 150mg Take 1 tablet by mouth every morning. [facility] cholestyram ine 4 gram powder 01-20 00:00: 00 Yes MIX AND DRINK 1 SCOOP BY MOUTH DAILY [facility] busPIRone 7.5 mg tablet 01-19 00:00: 00 Yes 7.5mg Take 1 tablet by mouth in the morning and 1 tablet in the evening. [facility] metoprolol tartrate 50 mg tablet 08-25 11:55: 42 Yes 50mg Take 1 tablet by mouth in the morning and 1 tablet in the evening. [facility] escitalopra m oxalate (LEXAPRO) 10 mg tablet 08-25 11:55: 42 Yes 10mg Take 1 tablet by mouth in the morning. [facility] divalproex ER 250 mg 24 hr tablet 08-23 00:00: 00 11-22 04:59 :00 No [id number] 250mg Take 1 tablet by mouth in the morning and 1 tablet in the evening. Do all this for 90 days. [facility] acetaminoph en-codeine 300-30 mg tablet 2024-0 4-13 00:00: 00 08-31 04:59 :00 No [id number] 1{tbl} Take 1 tablet by mouth every 6 (six) hours as needed for Pain (scale 4-6) or Pain (scale 7-10) for up to 7 days. Indication s: acute pain [facility] cefTRIAXone (ROCEPHIN) 1,000 mg in NaCl 0.9% (NS) 100 mL MINI-BAG 05-19 16:45: 00 05-19 17:24 :00 No 1000mg 1,000 mg, IV Piggyback, ONCE, 1 dose, On 05/19/23 at 1045, Administer over 30 Minutes, 100 mL
Reas on for Anti-Infec tive: Documented Infection< br>Documen renata Infection Site: Urine
D uration of Therapy: Other (see Comments) [facility] morpHINE (4 mg/mL) injection 4 mg 05-19 16:45: 00 05-19 16:53 :00 No 4mg 4 mg, Slow IV Push, ONCE, 1 dose, On 05/19/23 at 1045, STAT [facility] NaCl 0.9% (NS) bolus infusion 1,000 mL 05-19 16:00: 00 05-19 17:00 :00 No 1000mL at 999 mL/hr, 1,000 mL, IV Infusion, ONCE, 1 dose, On Sat05/19/23 at 1000, [place] [facility] iopamidol (ISOVUE 370-500 mL) injection 80 mL 05-19 15:50: 00 05-19 16:15 :00 No [id number] 80mL 80 mL, Intravenou s, ONCE, 1 dose, On Sat05/19/23 at 1015, Routine [facility] dicyclomine (BENTYL) tablet 20 mg 05-19 15:45: 00 05-19 16:09 :00 No 20mg 20 mg, Oral, ONCE, 1 dose, On Sat05/19/23 at 0945, [place] [facility] ondansetron (ZOFRAN (PF)) injection 4 mg 05-19 15:15: 00 05-19 15:50 :00 No 4mg 4 mg, Slow IV Push, ONCE, 1 dose, On 05/19/23 at 0915, [place] [facility] maalox:diph enhydrAMINE :lidocaine 2 % viscous 1:1:1 ([facility]) oral suspension 15 mL 05-19 15:15: 00 05-19 15:49 :00 No 15mL 15 mL, Oral, ONCE, 1 dose, On 05/19/23 at 0915, Routine [facility] famotidine (PEPCID (PF)) injection 20 mg 05-19 15:15: 00 05-19 15:51 :00 No 20mg 20 mg, Slow IV Push, ONCE, 1 dose, On 05/19/23 at 0915, [place] [facility] ondansetron 4 mg disintegrat ing tablet 05-19 00:00: 00 02-26 00:00 :00 No [id number] 4mg Take 1 tablet by mouth every 8 (eight) hours as needed for Nausea and Vomiting (N/V). [facility] sucralfate 1 gram tablet 05-19 00:00: 00 06-19 05:59 :00 No [id number] 1g Take 1 tablet by mouth before meals and at bedtime for 30 days. [facility] pantoprazol e 40 mg EC tablet 05-19 00:00: 00 06-19 05:59 :00 No [id number] 40mg Take 1 tablet by mouth in the morning for 30 days. [facility] cefdinir 300 mg capsule 05-19 00:00: 00 05-27 05:59 :00 No [id number] 300mg Take 1 capsule by mouth every 12 (twelve) hours for 7 days. [facility] morpHINE (2 mg/mL) injection 2 mg 01-15 19:15: 00 01-15 18:49 :00 No 2mg 2 mg, Slow IV Push, ONCE, 1 dose, On Sat01/15/23 at 1415, [facility]FRAN[facility] 4 mg 01-15 18:15: 00 01-15 22:02 :00 No 4mg 4 mg, Oral, ONCE, 1 dose, On Sat01/15/23 at 1315, Routine [facility] ondans[facility] 4 mg tablet 01-15 00:00: 00 02-26 00:00 :00 No [id number] 4mg Take 1 tablet by mouth every 8 (eight) hours as needed for Nausea and Vomiting (N/V). [facility] HYDROcodone -acetaminop hen 5-325 mg tablet 01-15 00:00: 00 01-23 04:59 :00 No [id number] 1{tbl} Take 1 tablet by mouth every 4 (four) hours as needed for Pain (scale 4-6) for up to 7 days. Indication s: acute pain [facility] morpHINE (2 mg/mL) injection 2 mg 01-14 16:11: 23 01-15 11:49 :59 No 2mg 2 mg, Slow IV Push, Q4HPRN, Starting on Sat01/14/23 at 1111, Until Sat01/15/23 at 0649, Routine, Pain (scale 7-10) [facility] methocarbam oL (ROBAXIN) tablet 500 mg 01-14 13:00: 00 Yes 500mg 500 mg, Oral, QID, First dose on Sat01/14/23 at 0800, Until Discontinu ed, Routine [facility] celecoxib (CELEBREX) capsule 100 mg 01-14 13:00: 00 Yes 100mg 100 mg, Oral, BID MEALS, First dose on Sat01/14/23 at 0800, Until Discontinu ed, Routine [facility] gabap[facility] (NEURONTIN) capsule 300 mg 01-14 01:30: 00 Yes 300mg 300 mg, Oral, TID, First dose on Sat01/13/23 at 2030, Until Discontinu ed, Routine [facility] acetaminoph en (TYLENOL) tablet 1,000 mg 01-14 01:30: 00 Yes 1000mg 1,000 mg, Oral, Q8H, First dose (after last modificati on) on 01/13/23 at 2030, Until Discontinu ed, Routine [facility] scopolamine transdermal (TRANSDERM- SCOP) patch 1.5 mg 01-13 00:30: 00 Yes 1.5mg 1.5 mg, Topical, Administer over 72 Hours, Q72H, First dose on 01/12/23 at 1930, Until Discontinu ed, Routine [facility] enoxaparin (LOVENOX) injection 40 mg 01-12 22:00: 00 Yes 40mg 40 mg, Subcutaneo us, DAILY, First dose on 01/12/23 at 1700, Until Discontinu ed, Routine [facility] FENTanyl PF (SUBLIMAZE (PF)) injection 100 mcg 01-12 20:30: 00 01-12 20:30 :00 No [id number] 100ug 100 mcg, Slow IV Push, ONCE, 1 dose, On 01/12/23 at 1530, Routine [facility] proMETHazin e (PHENERGAN) 25 mg in NS 50 mL IV piggyback (CNR) 01-12 17:11: 31 01-15 14:12 :44 No 25mg 25 mg, IV Piggyback, at 200 mL/hr Administer over 15 Minutes, Q4HPRN, Starting on 01/12/23 at 1211, Until 01/15/23 at 0912, Routine, Nausea and Vomiting (N/V) [facility] piperacilli n-tazobacta m (ZOSYN) 3.375 [...] Abdominal< br>Duratio n of Therapy: 7 days [facility] pantoprazol e (PROTONIX) EC tablet 40 mg 01-12 14:00: 00 Yes 40mg 40 mg, Oral, DAILY, First dose on Sat01/12/23 at 0900, Until Discontinu ed, Routine [facility] KCL (KLOR-CON M20) tablet 40 mEq 01-12 09:30: 00 01-12 09:25 :00 No 40meq 40 mEq, Oral, ONCE, 1 dose, On Sat01/12/23 at 0430, Routine [facility] diphenhydrA MINE (BENADRYL) tablet 25 mg 01-12 08:31: 43 Yes 25mg 25 mg, Oral, QHSPRN, Starting on Sat01/12/23 at 0331, Until Discontinu ed, Routine, Itching, Sleep [facility] lactated ringers IV infusion 1,000 mL 01-12 08:15: 00 01-15 11:48 :29 No 1000mL at 50 mL/hr, 1,000 mL, IV Infusion, CONTINUOUS , Starting on Sat01/12/23 at 0315, Until Sat01/15/23 at 0648, Routine [facility] piperacilli n-tazobacta m (ZOSYN) 3.375 g in NaCl 0.9% (NS) 100 mL MINI-BAG 01-12 06:45: 00 01-12 08:43 :00 No 3.375g 3.375 g, IV Piggyback, ONCE, 1 dose, On 01/12/23 at 0145, Administer over 30 Minutes, 100 mL
Reas on for Anti-Infec tive: Documented Infection< br>Documen renata Infection Site: Abdominal< br>Duratio n of Therapy: 7 days [facility] lactated ringers IV infusion 1,000 mL 01-12 06:00: 00 01-12 08:13 :38 No 1000mL at 100 mL/hr, 1,000 mL, IV Infusion, CONTINUOUS , Starting on 01/12/23 at 0100, Until 01/12/23 at 0313, Routine [facility] morpHINE (4 mg/mL) injection 4 mg 01-12 05:49: 22 01-14 05:48 :22 No 4mg 4 mg, Slow IV Push, Q4HPRN, Starting on 01/12/23 at 0049, Until 01/14/23 at 0048, Routine, Pain (scale 7-10) [facility] HYDROcodone -acetaminop hen (NORCO 5) 5-325 mg tablet 1 tablet 01-12 05:49: 18 Yes 1{tbl} 1 tablet, Oral, Q4HPRN, Starting on 01/12/23 at 0049, Until Discontinu ed, Routine, Pain (scale 4-6) [facility] ondansetron (ZOFRAN (PF)) injection 4 mg 01-12 05:49: 11 01-15 17:31 :12 No 4mg 4 mg, Slow IV Push, Q6HPRN, Starting on 01/12/23 at 0049, Until Sat01/15/23 at 1231, Routine, Nausea and Vomiting (N/V) [facility] ondansetron (ZOFRAN (PF)) injection 4 mg 01-12 04:45: 00 01-12 04:45 :00 No 4mg 4 mg, Slow IV Push, ONCE, 1 dose, On Sat01/11/23 at 2345, [place] [facility] morpHINE (4 mg/mL) injection 4 mg 01-12 04:45: 00 01-12 04:45 :00 No 4mg 4 mg, Slow IV Push, ONCE, 1 dose, On Sat01/11/23 at 2345, STAT [facility] proMETHazin e (PHENERGAN) 25 mg in NS 50 mL IV piggyback (CNR) 01-12 04:45: 00 01-12 06:00 :00 No 25mg 25 mg, IV Piggyback, at 200 mL/hr Administer over 15 Minutes, ONCE, 1 dose, On Sat01/11/23 at 2345, [facility] iopamidol (ISOVUE 370-500 mL) injection 80 mL 01-12 03:33: 00 01-12 03:25 :00 No [id number] 80mL 80 mL, Intravenou s, ONCE, 1 dose, On Sat01/11/23 at 2245, Routine [facility] maalox:diph enhydrAMINE :lidocaine 2 % viscous 1:1:1 ([facility]) oral suspension 15 mL 01-12 03:30: 00 01-12 03:07 :00 No 15mL 15 mL, Oral, ONCE, 1 dose, On Sat01/11/23 at 2230, [facility] morpHINE (4 mg/mL) injection 4 mg 01-12 03:30: 00 01-12 03:05 :00 No 4mg 4 mg, Slow IV Push, ONCE, 1 dose, On Sat01/11/23 at 2230, [facility] NaCl 0.9% (NS) bolus infusion 1,000 mL 01-12 03:30: 00 01-12 03:04 :00 No 1000mL at 999 mL/hr, 1,000 mL, IV Infusion, ONCE, 1 dose, On Sat01/11/23 at 2230, [facility] ondansetron (ZOFRAN (PF)) injection 4 mg 01-12 03:00: 00 01-12 03:05 :00 No 4mg 4 mg, Slow IV Push, ONCE, 1 dose, On Sat01/11/23 at 2200, [facility] ibuprofen (IBU) tablet 600 mg 11-21 22:15: 00 11-21 21:44 :00 No 600mg 600 mg, Oral, ONCE, 1 dose, On Sat11/21/22 at 1715, [place] [facility] butalbital- acetaminoph en-caff (ESGIC) 50-325-40 mg tablet 1 tablet 11-21 21:30: 00 11-21 21:39 :00 No 1{tbl} 1 tablet, Oral, ONCE, 1 dose, On Sat11/21/22 at 1630, [place] [facility] ciprofloxac in HCl 500 mg tablet 11-11 00:00: 00 02-26 00:00 :00 No TAKE 1 TABLET BY MOUTH EVERY 12 HOURS FOR 7 DAYS [facility] methocarbam oL 750 mg tablet 11-07 00:00: 00 Yes 750mg Take 1 tablet by mouth 2 (two) times daily as needed. [facility] methocarbam oL 750 mg tablet 11-07 00:00: 00 02-26 00:00 :00 No 1{tbl} Take 1 tablet by mouth 2 (two) times daily as needed. [facility] baclofen 10 mg tablet 10-27 00:00: 00 Yes 10mg Take 1 tablet by mouth every 6 (six) hours as needed. [facility] baclofen 10 mg tablet 10-27 00:00: 00 02-26 00:00 :00 No 1{tbl} Take 1 tablet by mouth every 6 (six) hours as needed. [facility] tiZANidine 4 mg tablet 10-24 00:00: 00 Yes 4mg Take 1 tablet by mouth every 6 (six) hours as needed. [facility] tiZANidine 4 mg tablet 10-24 00:00: 00 02-26 00:00 :00 No 1{tbl} Take 1 tablet by mouth every 6 (six) hours as needed. [facility] traZODone 50 mg tablet 10-22 00:00: 00 Yes 50mg Take 1 tablet by mouth at bedtime. [facility] traZODone 50 mg tablet 2023-0 6-12 00:00: 00 02-26 00:00 :00 No 1{tbl} Take 1 tablet by mouth at bedtime. [facility] hydrOXYzine 50 mg tablet 10-02 00:00: 00 Yes 50mg Take 1 tablet by mouth every 6 (six) hours as needed. [facility] hydrOXYzine 50 mg tablet 10-02 00:00: 00 02-26 00:00 :00 No 1{tbl} Take 1 tablet by mouth every 6 (six) hours as needed. [facility] mirtazapine 15 mg tablet 12 00:00: 00 02-26 00:00 :00 No 15mg Take 1 tablet by mouth at bedtime. [facility] meloxicam 15 mg tablet 09 00:00: 00 Yes 15mg Take 1 tablet by mouth in the morning. [facility] meloxicam 15 mg tablet 09-18 00:00: 00 02-26 00:00 :00 No 1{tbl} Take 1 tablet by mouth in the morning. [facility] verapamil SR 120 mg ER tablet 08 00:00: 00 Yes 120mg Take 1 tablet by mouth in the morning. [facility] verapamil SR 120 mg ER tablet 08 00:00: 00 02-26 00:00 :00 No 1{tbl} Take 1 tablet by mouth in the morning. [facility] OLANZapine 10 mg tablet 09-06 00:00: 00 02-26 00:00 :00 No 10mg Take 1 tablet by mouth in the morning. [facility] cloNIDine 0.1 mg tablet 09-06 00:00: 00 02-26 00:00 :00 No TAKE 1-2 TABLETS BY MOUTH AT BEDTIME NEEDED FOR SLEEP AND ANXIETY [facility] NaCl 0.9% (NS) bolus infusion 1,000 mL 09-05 18:15: 00 09-05 18:08 :00 No 1000mL at 999 mL/hr, 1,000 mL, IV Infusion, ONCE, 1 dose, On Sat09/05/22 at 1315, STAT [facility] acetaminoph en (TYLENOL) tablet 650 mg 09-05 17:30: 00 09-05 17:24 :00 No 650mg 650 mg, Oral, ONCE, 1 dose, On Sat09/05/22 at 1230, [place] [facility] ondansetron (ZOFRAN (PF)) injection 4 mg 09-05 17:15: 00 09-05 17:23 :00 No 4mg 4 mg, Slow IV Push, ONCE, 1 dose, On Sat09/05/22 at 1215, [facility] magnesium sulfate in water 2 gram/50 mL (4 %) infusion 2 g 09-05 16:15: 00 09-05 16:10 :00 No 2g 2 g, IV Piggyback, Administer over 30 Minutes, ONCE, 1 dose, On Sat09/05/22 at 1115, Routine [facility] diphenhydrA MINE (BENADRYL) injection 25 mg 09-05 16:00: 00 09-05 16:01 :00 No 25mg 25 mg, Slow IV Push, ONCE, 1 dose, On Sat09/05/22 at 1100, STAT [facility] ketorolac (TORADOL) injection 30 mg 09-05 15:30: 00 09-05 14:38 :00 No 30mg 30 mg, Slow IV Push, ONCE, 1 dose, On Sat09/05/22 at 1030, Routine [facility] NaCl 0.9% (NS) bolus infusion 1,000 mL 09-05 15:00: 00 09-05 17:12 :00 No 1000mL at 999 mL/hr, 1,000 mL, IV Infusion, ONCE, 1 dose, On Sat09/05/22 at 1000, STAT [facility] methylpredn isolone sod succ (SOLU-MEDRO L) injection 125 mg 09-05 14:45: 00 09-05 14:35 :00 No 125mg 125 mg, Intravenou s, ONCE, 1 dose, On Sat09/05/22 at 0945, 2 mL [facility] butalbital- acetaminoph en-caff (ESGIC) 50-325-40 mg tablet 1 tablet 09-05 14:00: 00 09-05 14:34 :00 No 1{tbl} 1 tablet, Oral, ONCE, 1 dose, On Sat09/05/22 at 0900, [place] [facility] diphenhydrA MINE (BENADRYL) injection 25 mg 09-05 14:00: 00 09-05 14:39 :00 No 25mg 25 mg, Slow IV Push, ONCE, 1 dose, On Sat09/05/22 at 0900, STAT [facility] proMETHazin e (PHENERGAN) 12.5 mg in NaCl 0.9% (NS) 50 mL IV piggyback 09-05 14:00: 00 09-05 14:40 :00 No 12.5mg 12.5 mg, IV Piggyback, ONCE, 1 dose, On Sat09/05/22 at 0900, [facility] carvediloL 25 mg tablet 09-05 00:00: 00 02-26 00:00 :00 No [id number] 25mg Take 1 tablet by mouth in the morning and 1 tablet in the evening. Take with meals. [facility] losartan 50 mg tablet 09-05 00:00: 00 02-26 00:00 :00 No [id number] 50mg Take 1 tablet by mouth in the morning and 1 tablet in the evening. [facility] ibuprofen 800 mg tablet 08-05 00:00: 00 02-26 00:00 :00 No 800mg Take 1 tablet by mouth 3 (three) times daily as needed. [facility] cyclobenzap rine 10 mg tablet 08-05 00:00: 00 02-26 00:00 :00 No 10mg Take 1 tablet by mouth 3 (three) times daily as needed. [facility] maalox:diph enhydrAMINE :lidocaine 2 % viscous 1:1:1 ([facility]) oral suspension 15 mL 08-01 00:45: 00 08-01 00:44 :00 No 15mL 15 mL, Oral, ONCE, 1 dose, On Sat07/31/22 at 1945, [place] [facility] ketorolac (TORADOL) injection 15 mg 08-01 00:15: 00 08-01 00:44 :00 No 15mg 15 mg, Slow IV Push, ONCE, 1 dose, On Sat07/31/22 at 191, Routine [facility] ondansetron (ZOFRAN (PF)) injection 4 mg 08-01 00:15: 00 08-01 00:46 :00 No 4mg 4 mg, Slow IV Push, ONCE, 1 dose, On Sat07/31/22 at 1914, [place] [facility] famotidine (PEPCID (PF)) injection 20 mg 08-01 00:15: 00 08-01 00:46 :00 No 20mg 20 mg, Slow IV Push, ONCE, 1 dose, On Sat07/31/22 at 1914, [place] [facility] ondansetron 4 mg disintegrat ing tablet 07-31 00:00: 00 05-19 00:00 :00 No [id number] 4mg Take 1 tablet by mouth every 8 (eight) hours as needed for Nausea and Vomiting (N/V). [facility] sucralfate 1 gram tablet 07-31 00:00: 00 05-19 00:00 :00 No [id number] 1g Take 1 tablet by mouth before meals and at bedtime. [facility] pantoprazol e 40 mg EC tablet 07-31 00:00: 00 08-15 04:59 :00 No [id number] 40mg Take 1 tablet by mouth in the morning for 14 days. [facility] tamsulosin 0.4 mg 24 hr capsule 3-15 00:00: 00 Yes .4mg Take 1 capsule by mouth in the morning. [facility] tamsulosin 0.4 mg 24 hr capsule 3-15 00:00: 00 02-26 00:00 :00 No 1{capsu le} Take 1 capsule by mouth in the morning. [facility] traMADoL 50 mg tablet 3-13 00:00: 00 02-26 00:00 :00 No 50mg Take 1 tablet by mouth. [facility] ibuprofen 600 mg tablet 3-05 00:00: 00 07-31 00:00 :00 No [id number] 600mg Take 1 tablet by mouth every 6 (six) hours as needed for Pain (scale 4-6). [facility] citalopram 10 mg tablet 2-17 00:00: 00 Yes 10mg Take 1 tablet by mouth in the morning. [facility] citalopram 10 mg tablet 2-17 00:00: 00 02-26 00:00 :00 No 1{tbl} Take 1 tablet by mouth in the morning. [facility] QUEtiapine 400 mg tablet 2-17 00:00: 00 02-26 00:00 :00 No [facility] gabapentin 600 mg tablet 2-17 00:00: 00 02-26 00:00 :00 No [facility] methylPREDN ISolone (MEDROL, ANABELA,) 4 mg tablets 2-11 00:00: 00 09-24 00:00 :00 No [id number] Take by mouth SEE-INSTRU CTIONS. follow package directions [facility] bromphenira mine-pseudo ephedrine-D M (BROMFED DM) 2-30-10 mg/5 mL syrup 2-11 00:00: 00 07-04 05:59 :00 No [id number] 5mL Take 5 mL by mouth 4 (four) times daily as needed for Cold symptoms for up to 10 days. [facility] methocarbam oL 750 mg tablet 06-23 00:00: 00 07-01 05:59 :00 No [id number] 750mg Take 1 tablet by mouth 4 (four) times daily for 7 days. [facility] magnesium sulfate in water 2 gram/50 mL (4 %) infusion 2 g 2021-05 21:00: 00 05-05 21:15 :00 No 2g 2 g, IV Piggyback, Administer over 15 Minutes, ONCE, 1 dose, On 05/05/22 at 1500, [facility] acute [facility] butalbital- acetaminoph en-caff (ESGIC) 50-325-40 mg tablet 1 tablet 2021-05 20:15: 00 05-05 20:56 :00 No 1{tbl} 1 tablet, Oral, ONCE, 1 dose, [facility] 1415[facility] sod phos [facility] 10 mg 2021-05 20:15: 00 05-05 21:00 :00 No 10mg 10 mg, Slow IV Push, ONCE, 1 dose, On 05/05/22 at 1415, 1 mL [facility] NaCl 0.9% (NS) bolus infusion 1,000 mL 2021-05 20:00: 00 05-05 21:45 :00 No 1000mL at 999 mL/hr, 1,000 mL, IV Infusion, ONCE, 1 dose, [facility]/05/22 at 1400[facility] diphen[facility]A MINE (BENADRYL) injection 25 mg 2021-05 19:15: 00 05-05 19:42 :00 No 25mg 25 mg, Slow IV Push, ONCE, 1 dose, On 05/05/22 at 1315, STAT [facility] ondansetron (ZOFRAN (PF)) injection 4 mg 2021-05 19:15: 00 05-05 19:45 :00 No 4mg 4 mg, Slow IV Push, ONCE, 1 dose, On 05/05/22 at 1315, [place] [facility] ketorolac (TORADOL) injection 30 mg 2021-05 19:15: 00 05-05 19:44 :00 No 30mg 30 mg, Slow IV Push, ONCE, 1 dose, On 05/05/22 at 1315, Routine [facility] butalbital- acetaminoph en-caff 50-325-40 mg tablet 2021-05 00:00: 00 09-24 00:00 :00 No [id number] 1{tbl} Take 1 tablet by mouth every 4 (four) hours as needed for Pain (scale 7-10). [facility] HYDROcodone -acetaminop hen (NORCO) 10-325 mg tablet 1 tablet 2021-05 16:30: 00 04-26 15:23 :00 No 1{tbl} 1 tablet, Oral, ONCE, 1 dose, On Kathie 04/26/22 at 1030, Routine [facility] diphenhydrA MINE (BENADRYL) tablet 25 mg 2021-05 15:45: 00 04-26 15:53 :00 No 25mg 25 mg, Oral, ONCE, 1 dose, On Kathie 04/26/22 at 0945, [place] [facility] NaCl 0.9% (NS) bolus infusion 1,000 mL 2021-05 15:45: 00 04-26 15:55 :00 No 1000mL at 999 mL/hr, 1,000 mL, IV Piggyback, ONCE, 1 dose, On Kathie 04/26/22 at 0945, STAT [facility] ondansetron (ZOFRAN (PF)) injection 4 mg 2021-05 14:45: 00 04-26 14:52 :00 No 4mg 4 mg, Slow IV Push, ONCE, 1 dose, On Kathie 04/26/22 at 0845, Routine [facility] cephALEXin (KEFLEX) 500 mg capsule 2022-1 2-15 00:00: 00 05-04 05:59 :00 No [id number] 500mg Take 1 capsule by mouth in the morning and 1 capsule at noon and 1 capsule in the evening. Do all this for 7 days. [facility] ondansetron (ZOFRAN) 4 mg tablet 2021-05 00:00: 00 07-31 00:00 :00 No 4mg Take 1 tablet by mouth every 8 (eight) hours as needed for Nausea and Vomiting (N/V). [facility] galcanezuma b-gnlm prefilled (EMGALITY) subcutaneou s injection 2021-05 00:00: 00 02-26 00:00 :00 No [id number] 120mg inject 120 mg under the skin once every month. [facility] methocarbam oL (ROBAXIN) injection 1,000 mg 2021-05 04:00: 00 Yes 1000mg 1,000 mg, Intravenou s, Q8H, First dose on 04/07/22 at 2200, Until Discontinu ed, Routine [facility] ketorolac (TORADOL) injection 30 mg 2021-05 00:45: 00 04-07 23:45 :00 No 30mg 30 mg, Slow IV Push, ONCE, 1 dose, On 04/07/22 at 1845, Routine [facility] HYDROcodone -acetaminop hen (NORCO) 10-325 mg tablet 1 tablet 2021-05 00:30: 00 04-07 23:45 :00 No 1{tbl} 1 tablet, Oral, ONCE NOW, 1 dose, On 04/07/22 at 1830, Routine [facility] diphenhydrA MINE (BENADRYL) injection 12.5 mg 2021-05 23:45: 00 04-07 23:46 :00 No 12.5mg 12.5 mg, Slow IV Push, ONCE, 1 dose, On 04/07/22 at 1745, STAT [facility] butorphanol (STADOL) injection 1 mg 2021-05 23:15: 00 04-07 22:48 :00 No 1mg 1 mg, IV Push, ONCE, 1 dose, On 04/07/22 at 1715, Routine [facility] NaCl 0.9% (NS) bolus infusion 1,000 mL 2021-05 23:15: 00 04-07 23:49 :00 No 1000mL at 999 mL/hr, 1,000 mL, IV Infusion, ONCE, 1 dose, On 04/07/22 at 1715, [place] [facility] ketorolac (TORADOL) injection 15 mg 2021-05 19:30: 00 03-24 18:45 :00 No 15mg 15 mg, Slow IV Push, ONCE, 1 dose, On 03/24/22 at 1330, Routine [facility] butorphanol (STADOL) injection 1 mg 2021-05 18:00: 00 03-24 17:26 :00 No 1mg 1 mg, Intravenou s, ONCE, 1 dose, On 03/24/22 at 1200, Routine [facility] proMETHazin e (PHENERGAN) 25 mg in NaCl 0.9% (NS) 50 mL IV piggyback 2021-05 18:00: 00 03-24 18:13 :00 No 25mg 25 mg, IV Piggyback, ONCE, 1 dose, On 03/24/22 at 1200, [place] [facility] butorphanol (STADOL) injection 1 mg 2021-05 17:15: 00 03-24 16:26 :00 No 1mg 1 mg, IV Push, ONCE, 1 dose, On 03/24/22 at 1115, Routine [facility] diphenhydrA MINE (BENADRYL) injection 25 mg 2021-05 15:30: 00 03-24 15:40 :00 No 25mg 25 mg, Slow IV Push, ONCE, 1 dose, On 03/24/22 at 0930, STAT [facility] ondansetron (ZOFRAN (PF)) injection 4 mg 2021-05 15:30: 00 03-24 14:25 :00 No 4mg 4 mg, Slow IV Push, ONCE, 1 dose, On 03/24/22 at 0930, [facility] NaCl 0.9% (NS) IV infusion 1,000 mL 2021-05 15:15: 00 03-24 17:25 :00 No 1000mL at 999 mL/hr, Intravenou s, ONCE, 1 dose, [facility] 03/24/22 at 0915[facility] 2 gram/50 mL (4 %) infusion 2 g 2021-05 15:00: 00 03-24 14:47 :00 No 2g 2 g, IV Piggyback, Administer over 20 Minutes, ONCE, 1 dose, On 03/24/22 at 0900, Routine [facility] dexamethaso ne sod phos PF injection 6 mg 2021-05 14:15: 00 03-24 14:14 :00 No 6mg 6 mg, Slow IV Push, ONCE, 1 dose, On 03/24/22 at 0815, 1 mL [facility] diphenhydrA MINE (BENADRYL) injection 25 mg 2021-05 14:15: 00 03-24 14:16 :00 No 25mg 25 mg, Slow IV Push, ONCE, 1 dose, On 03/24/22 at 0815, STAT [facility] ALBUTEROL INHALE 2021-05 07:58: 13 03-24 00:00 :00 No [facility] rizatriptan 10 mg tablet 2021-05 00:00: 00 02-26 00:00 :00 No [id number] 10mg Take 1 tablet by mouth as needed for Migraine. May repeat in 2 hours if needed [facility] Butalbital- Acetaminoph en-Caff (FIORICET) 50-300-40 mg per capsule 2021-05 00:00: 00 02-26 00:00 :00 No [id number] 1{capsu le} Take 1 capsule by mouth every 6 (six) hours as needed for Other (headache) . [facility] magnesium oxide 200 mg magnesium Tab 2021-05 00:00: 00 04-07 00:00 :00 No [id number] 200mg Take 200 mg by mouth 2 (two) times daily. Indication s: headache [facility] SUMAtriptan 50 mg tablet 2021-05 00:00: 00 02-26 00:00 :00 No 50mg Take 1 tablet by mouth as needed for Migraine. Take one tablet at onset of migraine, may take another tablet 2 hours after initial dose if no relief with first dose. DO NOT EXCEED 100mg in a 24 hour period. [facility] FENTanyl PF (SUBLIMAZE (PF)) injection 50 mcg 2021-05 15:30: 00 03-15 14:56 :00 No 50ug 50 mcg, Slow IV Push, ONCE, 1 dose, On Kathie 03/15/22 at 1030, Routine [facility] proMETHazin e (PHENERGAN) tablet 25 mg 2021-05 14:45: 00 03-15 14:55 :00 No 25mg 25 mg, Oral, ONCE, 1 dose, On Kathie 03/15/22 at 0945, [place] [facility] FENTanyl PF (SUBLIMAZE (PF)) injection 50 mcg 2021-05 14:45: 00 03-15 13:58 :00 No 50ug 50 mcg, Slow IV Push, ONCE, 1 dose, On Kathie 03/15/22 at 0945, Routine [facility] ondansetron (ZOFRAN (PF)) injection 4 mg 2021-05 14:00: 00 03-15 13:58 :00 No 4mg 4 mg, Slow IV Push, ONCE, 1 dose, On Kathie 03/15/22 at 0900, [place] [facility] carvediloL 25 mg tablet 2021-05 00:00: 00 09-05 00:00 :00 No [id number] 25mg Take 1 tablet by mouth in the morning and 1 tablet in the evening. Take with meals. [facility] ondansetron 4 mg disintegrat ing tablet 2021-05 00:00: 04-07 00:00 :00 No [id number] 4mg Take 1 tablet by mouth every 8 (eight) hours as needed for Nausea and Vomiting (N/V). [facility] ketorolac 10 mg tablet 2021-05 00:00: 04-07 00:00 :00 No [id number] 10mg Take 1 tablet by mouth every 6 (six) hours as needed for Pain (scale 7-10). [facility] proMETHazin e 25 mg tablet 2021-05 00:00: 00 04-07 00:00 :00 No [id number] 25mg Take 1 tablet by mouth every 6 (six) hours as needed for N/V unresponsi ve to Ondansetro n. [facility] cephALEXin 500 mg capsule 2021-05 00:00: 00 03-19 05:59 :00 No [id number] 500mg Take 1 capsule by mouth 4 (four) times daily for 3 days. [facility] predniSONE 20 mg tablet 2021-05 00:00: 00 03-15 04:59 :00 No [id number] 20mg Take 1 tablet by mouth in the morning for 2 days. [facility] methocarbam oL (ROBAXIN) tablet 500 mg 2021-05 16:45: 00 03-11 17:08 :00 No 500mg 500 mg, Oral, ONCE, 1 dose, On 03/11/22 at 1200, [place] [facility] dexamethaso ne sod phos PF injection 10 mg 2021-05 16:00: 00 03-11 16:00 :00 No 10mg 10 mg, Slow IV Push, ONCE, 1 dose, On 03/11/22 at 1100, 1 mL [facility] diphenhydrA MINE (BENADRYL) injection 25 mg 2021-05 15:46: 00 03-11 16:00 :00 No 25mg 25 mg, Slow IV Push, ONCE, 1 dose, On 03/11/22 at 1100, STAT [facility] NaCl 0.9% (NS) IV infusion 1,000 mL 2021-05 15:45: 00 03-11 16:04 :00 No 1000mL at 999 mL/hr, Intravenou s, ONCE, 1 dose, On 03/11/22 at 1045, Routine [facility] butalbital- acetaminoph en-caff (ESGIC) 50-325-40 mg tablet 1 tablet 2021-05 15:00: 00 03-11 15:05 :00 No 1{tbl} 1 tablet, Oral, ONCE, 1 dose, On 03/11/22 at 1015, [place] [facility] ketorolac (TORADOL) injection 15 mg 2021-05 14:45: 00 03-11 15:05 :00 No 15mg 15 mg, Slow IV Push, ONCE, 1 dose, [facility]11[facility]22 [facility] 0945[facility] proMETHazin [facility] (PHENERGAN) 12.5 mg in NaCl 0.9% (NS) 50 mL IV piggyback 2021-05 14:45: 00 03-11 15:04 :00 No 12.5mg 12.5 mg, IV Piggyback, ONCE, 1 dose, On 03/11/22 at 0945, [facility] proMETHazin e 25 mg tablet 2021-05 00:00: 00 07-31 00:00 :00 No [id number] 25mg Take 1 tablet by mouth every 6 (six) hours as needed for Nausea and Vomiting (N/V). [facility] methocarbam oL 500 mg tablet 2021-05 00:00: 00 04-07 00:00 :00 No [id number] 500mg Take 1 tablet by mouth 3 (three) times daily as needed for Pain (scale 7-10). [facility] topiramate 25 mg tablet 2021-05 0 00:00: 00 02-26 00:00 :00 No [id number] 100mg Take 4 tablets by mouth in the morning. [facility] diphenhydrA MINE 25 mg capsule 2021-0518 09:39: 59 02-27 00:00 :00 No 25mg Take 25 mg by mouth every 6 (six) hours as needed for Allergies. [facility] citalopram hydrobromid e (CITALOPRAM ORAL) 2021-05 09:39: 49 02-27 00:00 :00 No Take by mouth. [facility] carbamazepi ne (TEGRETOL ORAL) 2021-05 09:39: 28 02-27 00:00 :00 No Take by mouth. [facility] albuterol 90 mcg/actuati on inhaler 2021-05 00:00: 00 02-26 00:00 :00 No [id number] 2{puff} Inhale 2 Puffs every 6 (six) hours as needed for Wheezing or Shortness of Breath. [facility] SUMAtriptan 50 mg tablet 2021-05 00:00: 00 03-21 00:00 :00 No 50mg Take 50 mg by mouth as needed for Migraine. Take one tablet at onset of migraine, may take another tablet 2 hours after initial dose if no relief with first dose. DO NOT EXCEED 100mg in a 24 hour period. [facility] benzonatate 200 mg capsule 2021-05 00:00: 00 03-07 04:59 :00 No [id number] 200mg Take 1 capsule by mouth 3 (three) times daily as needed for Cough for up to 7 days. [facility] butalbital- acetaminoph en-caff (ESGIC) 50-325-40 mg tablet 1 tablet 2021-05 08:15: 00 02-21 08:09 :00 No 1{tbl} 1 tablet, Oral, ONCE, 1 dose, On Sat02/21/22 at 0315, [facility] butorphanol (STADOL) injection 1 mg 2021-05 08:15: 00 02-21 07:28 :00 No 1mg 1 mg, IV Push, ONCE, 1 dose, On Sat02/21/22 at 0315, Routine [facility] NaCl 0.9% (NS) bolus infusion 1,000 mL 2021-05 07:15: 00 02-21 08:40 :00 No 1000mL at 999 mL/hr, 1,000 mL, IV Infusion, ONCE, 1 dose, On Sat02/21/22 at 0215, [facility] proMETHazin e (PHENERGAN) 12.5 mg in NaCl 0.9% (NS) 50 mL IV piggyback 2021-05 06:30: 00 02-21 06:38 :00 No 12.5mg 12.5 mg, IV Piggyback, ONCE, 1 dose, On Sat02/21/22 at 0130, [facility] dexamethaso ne sod phos PF injection 10 mg 2021-05 06:30: 00 02-21 06:38 :00 No 10mg 10 mg, Slow IV Push, ONCE, 1 dose, On Sat02/21/22 at 0130, 1 mL [facility] ketorolac (TORADOL) injection 15 mg 2021-05 06:30: 00 02-21 06:38 :00 No 15mg 15 mg, Slow IV Push, ONCE, 1 dose, On Sat02/21/22 at 0130, [facility] diphenhydrA MINE (BENADRYL) injection 25 mg 2021-05 06:30: 00 02-21 06:38 :00 No 25mg 25 mg, Slow IV Push, ONCE, 1 dose, On Sat02/21/22 at 0130, STAT [facility] FENTanyl PF (SUBLIMAZE (PF)) injection 50 mcg 2021-05 20:30: 00 02-18 19:44 :00 No 50ug 50 mcg, Slow IV Push, ONCE, 1 dose, On 02/18/22 at 1530, Routine [facility] ketorolac (TORADOL) injection 30 mg 2021-05 20:15: 00 02-18 20:09 :00 No 30mg 30 mg, Slow IV Push, ONCE, 1 dose, [facility] 02/18/22 at 1515[facility] iop[facility]ol (ISOVUE 370-500 mL) injection 60 mL 2021-05 19:30: 00 02-18 17:30 :00 No [id number] 60mL 60 mL, Intravenou s, ONCE, 1 dose, On 02/18/22 at 1430, Routine [facility] proMETHazin e (PHENERGAN) 12.5 mg in NaCl 0.9% (NS) 50 mL IV piggyback 2021-05 18:15: 00 02-18 18:19 :00 No 12.5mg 12.5 mg, IV Piggyback, ONCE, 1 dose, On 02/18/22 at 1315, [place] [facility] FENTanyl PF (SUBLIMAZE (PF)) injection 50 mcg 2021-05 18:00: 00 02-18 17:26 :00 No 50ug 50 mcg, Slow IV Push, ONCE, 1 dose, On 02/18/22 at 1300, Routine [facility] ondansetron (ZOFRAN (PF)) injection 4 mg 2021-05 17:15: 00 02-18 17:27 :00 No 4mg 4 mg, Slow IV Push, ONCE, 1 dose, On 02/18/22 at 1215[facility] morpHINE (2 mg/mL) injection 4 mg 01-18 15:15: 00 01-18 14:49 :00 No 4mg 4 mg, Slow IV Push, ONCE, 1 dose, On Kathie 01/18/22 at 1015, STAT [facility] ondansetron (ZOFRAN (PF)) injection 4 mg 01-18 13:30: 00 01-18 13:33 :00 No 4mg 4 mg, Slow IV Push, ONCE, 1 dose, On Kathie 01/18/22 at 0830, [facility] morpHINE (4 mg/mL) injection 4 mg 01-18 13:30: 00 01-18 13:34 :00 No 4mg 4 mg, Slow IV Push, ONCE, 1 dose, On Kathie 01/18/22 at 0830, STAT [facility] morpHINE (4 mg/mL) injection 4 mg 01-18 12:30: 00 01-18 11:39 :00 No 4mg 4 mg, Slow IV Push, ONCE, 1 dose, On Kathie 01/18/22 at 0730, STAT [facility] famotidine (PEPCID (PF)) injection 20 mg 01-18 11:30: 00 01-18 10:52 :00 No 20mg 20 mg, Slow IV Push, ONCE, 1 dose, On Kathie 01/18/22 at 0630, [facility] ondansetron (ZOFRAN (PF)) injection 4 mg 01-18 11:30: 00 01-18 10:52 :00 No 4mg 4 mg, Slow IV Push, ONCE, 1 dose, On Kathie 01/18/22 at 0630, [facility] iodixanoL (VISIPAQUE 270-150 mL) injection 80 mL 01-18 11:21: 00 01-18 11:15 :00 No [id number] 80mL 80 mL, Intravenou s, ONCE, 1 dose, On Kathie 01/18/22 at 0630, Routine [facility] NaCl 0.9% (NS) bolus infusion 1,000 mL 01-18 11:15: 00 01-18 12:59 :00 No 1000mL at 999 mL/hr, 1,000 mL, IV Infusion, ONCE, 1 dose, On Kathie 01/18/22 at 0615, [facility] morpHINE (4 mg/mL) injection 4 mg 01-18 10:45: 00 01-18 10:52 :00 No 4mg 4 mg, Slow IV Push, ONCE, 1 dose, On Kathie 01/18/22 at 0545, STAT [facility] traMADoL 50 mg tablet 01-18 00:00: 00 02-27 00:00 :00 No [id number] 50mg Take 1 tablet by mouth every 6 (six) hours as needed for Pain (scale 7-10). Indication s: acute pain [facility] ondansetron 4 mg disintegrat ing tablet 01-18 00:00: 00 02-27 00:00 :00 No [id number] 4mg Take 1 tablet by mouth every 8 (eight) hours as needed for Nausea and Vomiting (N/V). [facility] ibuprofen 600 mg tablet 01-18 00:00: 00 02-27 00:00 :00 No [id number] 600mg Take 1 tablet by mouth every 6 (six) hours as needed for Pain (scale 4-6). [facility] predniSONE 20 mg tablet 01-16 00:00: 00 01-24 04:59 :00 No [id number] 40mg Take 2 tablets by mouth in the morning for 7 days. [facility] morpHINE (4 mg/mL) injection 4 mg 01-15 16:15: 00 01-15 15:28 :00 No 4mg 4 mg, Slow IV Push, ONCE, 1 dose, On Sat01/15/22 at 1115, [facility] proMETHazin e (PHENERGAN) 12.5 mg in NaCl 0.9% (NS) 50 mL IV piggyback 01-15 15:30: 00 01-15 15:28 :00 No 12.5mg 12.5 mg, IV Piggyback, ONCE, 1 dose, On Sat01/15/22 at 1030, [place] [facility] NaCl 0.9% (NS) bolus infusion 1,000 mL 01-15 15:00: 00 01-15 15:38 :00 No 1000mL at 999 mL/hr, 1,000 mL, IV Infusion, ONCE, 1 dose, On Sat01/15/22 at 1000, [facility] morpHINE (4 mg/mL) injection 4 mg 01-15 15:00: 00 01-15 14:37 :00 No 4mg 4 mg, Slow IV Push, ONCE, 1 dose, On Sat01/15/22 at 1000, [facility] ondansetron (ZOFRAN (PF)) injection 8 mg 01-15 14:15: 00 01-15 14:37 :00 No 8mg 8 mg, Slow IV Push, ONCE, 1 dose, On Sat01/15/22 at 0915, [facility] dexamethaso ne sod phos PF injection 10 mg 01-15 14:15: 00 01-15 14:37 :00 No 10mg 10 mg, Slow IV Push, ONCE, 1 dose, On Sat01/15/22 at 0915, 1 mL [facility] proMETHazin e 25 mg tablet 01-15 00:00: 00 02-27 00:00 :00 No [id number] 25mg Take 1 tablet by mouth every 6 (six) hours as needed for Nausea and Vomiting (N/V). [facility] ondansetron (ZOFRAN-ODT ) disintegrat ing tablet 4 mg 01-09 01:45: 00 01-09 00:56 :00 No 4mg 4 mg, Oral, ONCE, 1 dose, On Sat01/08/22 at 2045, Routine [facility] HYDROcodone -acetaminop hen (NORCO 5) 5-325 mg tablet 1 tablet 01-09 00:45: 00 01-09 00:37 :00 No 1{tbl} 1 tablet, Oral, ONCE, 1 dose, On Sat01/08/22 at 1945, [facility] diphenhydrA MINE (BENADRYL) injection 25 mg 01-08 23:45: 00 01-08 23:51 :00 No 25mg 25 mg, Slow IV Push, ONCE, 1 dose, On Sat01/08/22 at 1845, STAT [facility] dexamethaso ne sod phos PF injection 10 mg 01-08 23:45: 00 01-08 23:50 :00 No 10mg 10 mg, Slow IV Push, ONCE, 1 dose, On Sat01/08/22 at 1845, 1 mL [facility] ketorolac (TORADOL) injection 30 mg 01-08 23:45: 00 01-08 23:51 :00 No 30mg 30 mg, Slow IV Push, ONCE, 1 dose, On Sat01/08/22 at 1845, [place] [facility] acetaminoph en (TYLENOL ARTHRITIS PAIN) 650 mg CR tablet 01-08 00:00: 00 04-07 00:00 :00 No [id number] 650mg Take 1 tablet by mouth every 8 (eight) hours as needed for Pain. [facility] ondansetron 4 mg disintegrat ing tablet 01-08 00:00: 00 02-27 00:00 :00 No [id number] 4mg Take 1 tablet by mouth every 8 (eight) hours as needed for Nausea and Vomiting (N/V). [facility] ketorolac 10 mg tablet 01-08 00:00: 00 02-27 00:00 :00 No [id number] 10mg Take 1 tablet by mouth every 6 (six) hours as needed for Pain (scale 4-6) or Pain (scale 7-10). [facility] metaxalone (SKELAXIN) 800 mg tablet 01-08 00:00: 00 02-27 00:00 :00 No [id number] 800mg Take 1 tablet by mouth in the morning and 1 tablet at noon and 1 tablet in the evening. [facility] metroNIDAZO LE 500 mg tablet 12-18 00:00: 00 02-27 00:00 :00 No 500mg Take 1 tablet by mouth every 12 (twelve) hours. [facility] trazodone/d ietary supp. no.8 (TRAZAMINE ORAL) 12-12 15:08: 46 12-12 00:00 :00 No Take by mouth. [facility] diphenhydrA MINE 25 mg capsule 12-12 13:03: 04 Yes 25mg Take 25 mg by mouth every 6 (six) hours as needed for Allergies. [facility] carbamazepi ne (TEGRETOL ORAL) 12-12 13:03: 04 Yes Take by mouth. [facility] traZODone 50 mg tablet 12-12 00:00: 00 02-27 00:00 :00 No [id number] 50mg Take 1 tablet by mouth at bedtime. [facility] SERTraline (ZOLOFT) 50 mg tablet 12-12 00:00: 00 02-27 00:00 :00 No [id number] 50mg Take 1 tablet by mouth in the morning. [facility] sulfamethox azole-trime thoprim (BACTRIM DS) 800-160 mg per tablet 12-12 00:00: 00 12-16 04:59 :00 No [id number] 1{tbl} Take 1 tablet by mouth in the morning and 1 tablet in the evening. Do all this for 3 days. [facility] ibuprofen 600 mg tablet 11-24 00:00: 00 02-27 00:00 :00 No [id number] 600mg Take 1 tablet by mouth every 6 (six) hours as needed for Pain (scale 4-6). [facility] acetaminoph en-codeine 300-30 mg tablet 11-24 00:00: 00 12-12 00:00 :00 No [id number] 1{tbl} Take 1 tablet by mouth every 4 (four) hours as needed for Pain (scale 4-6). Indication s: acute pain [facility] bromphenira mine-pseudo ephedrine-D M (BROMFED DM) 2-30-10 mg/5 mL syrup 11-18 00:00: 00 03-24 00:00 :00 No [id number] 5mL Take 5 mL by mouth 4 (four) times daily as needed for Congestion /Allergies or Cough. [facility] naproxen 500 mg tablet 11-18 00:00: 00 02-27 00:00 :00 No [id number] 500mg Take 1 tablet by mouth every 8 (eight) hours as needed for Pain (scale 4-6). [facility] cyclobenzap rine 10 mg tablet 11-18 00:00: 00 02-27 00:00 :00 No [id number] 10mg Take 1 tablet by mouth at bedtime as needed for Muscle Spasms. [facility] ibuprofen 100 mg/5 mL oral suspension 10-25 00:00: 00 02-27 00:00 :00 No [id number] 605mg Take 30.25 mL by mouth every 6 (six) hours as needed for Pain (scale 4-6) or Temp > 38.5 C. [facility] acetaminoph en 160 mg/5 mL liquid 10-25 00:00: 00 12-12 00:00 :00 No [id number] 608mg Take 19 mL by mouth every 6 (six) hours as needed for Fever. [facility] DULoxetine 60 mg capsule 10-06 00:00: 00 02-27 00:00 :00 No [facility] traZODone 50 mg tablet 10-06 00:00: 00 12-12 00:00 :00 No [facility] mometasone 50 mcg/actuati on nasal spray 09-28 00:00: 00 02-27 00:00 :00 No [id number] 1{spray } Use 1 [place] in each nostril 2 (two) times daily. [facility] cetirizine (ZYRTEC) 10 mg tablet 16 00:00: 00 02-27 00:00 :00 No [id number] 10mg Take 1 tablet by mouth daily. [facility] DULoxetine 30 mg capsule 09-18 00:00: 02-27 00:00 :00 No [facility] gabapentin 300 mg capsule 09-18 00:00: 00 02-27 00:00 :00 No [facility] ondansetron 4 mg tablet 09-18 00:00: 00 02-27 00:00 :00 No [facility] amLODIPine 5 mg tablet 09-01 00:00: 00 02-27 00:00 :00 No 5mg Take 5 mg by mouth. [facility] buPROPion XL 150 mg 24 hr tablet 08-30 00:00: 00 02-27 00:00 :00 No 150mg Take 150 mg by mouth. [facility] proMETHazin e 25 mg tablet 08-15 00:00: 00 09-12 00:00 :00 No [id number] 25mg Take 1 tablet by mouth every 6 (six) hours as needed for Nausea and Vomiting (N/V). [facility] traMADoL 50 mg tablet 08-15 00:00: 00 09-12 00:00 :00 No [id number] 50mg Take 1 tablet by mouth every 6 (six) hours as needed (pain). Indication s: acute pain [facility] cyclobenzap rine 10 mg tablet 08-07 00:00: 00 08-22 04:59 :00 No [id number] 10mg Take 1 tablet by mouth 3 (three) times daily for 14 days. [facility] ibuprofen 800 mg tablet 08-07 00:00: 00 08-22 04:59 :00 No [id number] 800mg Take 1 tablet by mouth every 6 (six) hours as needed for Pain (scale 1-3) for up to 14 days. [facility] diclofenac 75 mg EC tablet 08-01 00:00: 09-12 00:00 :00 No [facility] orphenadrin e 100 mg SR tablet 08-01 00:00: 09-12 00:00 :00 No [facility] divalproex 125 mg EC tablet 3- 00:00: 00 09-12 00:00 :00 No [id number] 125mg Take 1 tablet by mouth every 12 (twelve) hours. [facility] divalproex Sprinkles 125 mg SPRINKLE capsule 07-21 00:00: 00 09-12 00:00 :00 No [facility] ibuprofen 600 mg tablet 07-17 00:00: 00 08-01 04:59 :00 No [id number] 600mg Take 1 tablet by mouth every 6 (six) hours as needed for Temp > 38.5 C for up to 14 days. [facility] acetaminoph en-codeine 300-30 mg tablet 06-11 00:00: 09-12 00:00 :00 No TAKE 1 TABLET BY MOUTH EVERY 4 HOURS NEEDED FOR PAIN FOR 2 DAYS [facility] fluticasone propionate 110 mcg/actuati on inhaler 05-31 00:00: 00 09-28 00:00 :00 No [id number] 2{puff} Inhale 2 Puffs every 12 (twelve) hours. [facility] benzonatate (TESSALON PERLES) 100 mg capsule 1-13 00:00: 00 09-25 00:00 :00 No [id number] 100mg Take 1 capsule by mouth every 8 (eight) hours as needed for Cough. [facility] carvediloL 25 mg tablet 2020-05 00:00: 00 02-27 00:00 :00 No 25mg Take 1 tablet by mouth 2 (two) times daily with meals. [facility] losartan 50 mg tablet 2020-05 00:00: 00 02-27 00:00 :00 No 50mg Take 1 tablet by mouth 2 (two) times daily. [facility] proMETHazin e 25 mg tablet 2020-05 00:00: 00 09-12 00:00 :00 No [facility] methocarbam oL (ROBAXIN) 500 mg tablet 2020-05 00:00: 00 05-25 00:00 :00 No [id number] 500mg Take 1 tablet by mouth every 6 (six) hours as needed (MUSCLE SPASM). [facility] vitamin B-12 (VITAMIN B-12) 500 mcg tablet 2020-05 00:00: 00 09-12 00:00 :00 No [id number] 500ug Take 1 tablet by mouth daily. [facility] methylPREDN ISolone 4 mg tablets 2020-05 00:00: 00 05-25 00:00 :00 No [id number] Follow package directions [facility] fluticasone propion-chel meteroL 115-21 mcg/actuati on inhaler 02-09 00:00: 05-25 00:00 :00 No [id number] 2{puff} Inhale 2 Puffs 2 (two) times daily. Rinse mouth after each use. [facility] albuterol 2.5 mg /3 mL (0.083 %) nebulizer solution 02-09 00:00: 00 05-25 00:00 :00 No [id number] 2.5mg Inhale 3 mL every 6 (six) hours as needed for Wheezing or Shortness of Breath. [facility] methocarbam oL (ROBAXIN) 500 mg tablet 02-09 00:00: 00 05-02 00:00 :00 No [id number] 500mg Take 1 tablet by mouth every 6 (six) hours as needed (MUSCLE SPASM). [facility] bromphenira mine-pseudo ephedrine-D M (BROMFED DM) 2-30-10 mg/5 mL syrup 01-31 00:00: 00 02-09 00:00 :00 No [id number] 5mL Take 5 mL by mouth 4 (four) times daily as needed for Cough. [facility] methylPREDN ISolone (MEDROL, ANABELA,) 4 mg tablets 01-20 00:00: 00 02-09 00:00 :00 No [id number] Take by mouth SEE-INSTRU CTIONS. follow package directions [facility] albuterol 90 mcg/actuati on inhaler 01-12 00:00: 00 05-25 00:00 :00 No [id number] 2{puff} Inhale 2 Puffs every 4 (four) hours as needed for Wheezing or Shortness of Breath. [facility] benzonatate 100 mg capsule 01-12 00:00: 00 02-19 00:00 :00 No [id number] 100mg Take 1 capsule by mouth 3 (three) times daily as needed for Cough. [facility] losartan 50 mg tablet 12-23 00:00: 00 02-09 00:00 :00 No 50mg Take 1 tablet by mouth 2 (two) times daily. [facility] topiramate 25 mg tablet 11-22 00:00: 00 12-26 00:00 :00 No 25mg Take 1 tablet by mouth 2 (two) times daily. [facility] OXcarbazepi ne 150 mg tablet 11-21 00:00: 00 02-09 00:00 :00 No [facility] FLUoxetine 40 mg capsule 11-21 00:00: 00 12-26 00:00 :00 No [facility] traZODone 100 mg tablet 11-21 00:00: 00 12-26 00:00 :00 No [facility] dicyclomine 20 mg tablet 6-10 00:00: 00 12-26 00:00 :00 No [id number] 20mg Take 1 tablet by mouth 4 (four) times daily. [facility] proMETHazin e 25 mg tablet 6-10 00:00: 00 12-26 00:00 :00 No [id number] 25mg Take 1 tablet by mouth every 6 (six) hours as needed for Nausea and Vomiting (N/V). [facility] acetaminoph en-codeine 300-30 mg tablet 6-05 00:00: 00 12-26 00:00 :00 No TAKE 2 TABLETS BY MOUTH EVERY 6 HOURS NEEDED FOR PAIN [facility] oxybutynin (DITROPAN XL) 10 mg 24 hr tablet 530 00:00: 00 12-26 00:00 :00 No [id number] 10mg Take 1 tablet by mouth daily. [facility] ondansetron (ZOFRAN ODT) 4 mg disintegrat ing tablet 530 00:00: 00 12-26 00:00 :00 No [id number] 4mg Take 1 tablet by mouth every 8 (eight) hours as needed for Nausea and Vomiting (N/V). [facility] ciprofloxac in HCl 500 mg tablet 530 00:00: 00 11-22 00:00 :00 No [id number] 500mg Take 1 tablet by mouth 2 (two) times daily. [facility] predniSONE 20 mg tablet 525 00:00: 00 11-22 00:00 :00 No [id number] 20mg Take 1 tablet by mouth daily. Days 1-2: 3 pills (60 mg). Days 3-4: 2 pills (40 mg). Days 5-6: 1 pill (20 mg). Days 7-8: 1/2 pill (10 mg). Then stop [facility] mupirocin 2 % ointment 520 00:00: 00 12-26 00:00 :00 No [id number] Apply to both nostrils at bedtime [facility] naproxen sodium (ANAPROX DS) 550 mg tablet 519 00:00: 00 12-26 00:00 :00 No [id number] 550mg Take 1 tablet by mouth 2 (two) times daily with meals. [facility] losartan 25 mg tablet 09-16 00:00: 12-22 00:00 :00 No 25mg Take 1 tablet by mouth 2 (two) times daily. [facility] nadoloL 20 mg tablet 09-16 00:00: 12-22 00:00 :00 No [id number] Please take Nadalol 40 mg QAM [facility] LOESTRIN FE (LOESTRIN FE 1/20) 1 mg-20 mcg (21)/75 mg (7) tablet 09-06 00:00: 00 02-09 00:00 :00 No [id number] 1{tbl} Take 1 tablet by mouth daily. [facility] FLUoxetine 20 mg capsule 09-06 00:00: 00 11-22 00:00 :00 No [id number] 20mg Take 1 capsule by mouth daily. [facility] traZODone 50 mg tablet 09-06 00:00: 00 11-22 00:00 :00 No [id number] 50mg Take 1 tablet by mouth at bedtime. [facility] nadoloL 20 mg tablet 08-31 00:00: 00 09-16 00:00 :00 No [id number] Please take Nadalol 40 mg QAM and 20 mg QPM [facility] methocarbam oL (ROBAXIN) 500 mg tablet 08-18 00:00: 00 09-30 00:00 :00 No [id number] 500mg Take 1 tablet by mouth every 6 (six) hours as needed (MUSCLE SPASM). [facility] traMADoL (ULTRAM) 50 mg tablet 08-18 00:00: 00 09-30 00:00 :00 No [id number] 50mg Take 1 tablet by mouth every 6 (six) hours as needed for Pain (scale 7-10). Indication s: acute pain [facility] ibuprofen 800 mg tablet 2021-0 4-04 00:00: 11-22 00:00 :00 No TAKE 1 TABLET BY MOUTH EVERY 12 HOURS NEEDED FOR PAIN [facility] ondansetron (ZOFRAN ODT) 4 mg disintegrat ing tablet 08-01 00:00: 00 09-30 00:00 :00 No [id number] 4mg Take 1 tablet by mouth every 8 (eight) hours as needed for Nausea and Vomiting (N/V). [facility] ketorolac 10 mg tablet 08-01 00:00: 00 09-30 00:00 :00 No [id number] 10mg Take 1 tablet by mouth every 6 (six) hours as needed for Pain (scale 4-6). [facility] ciprofloxac in HCl 250 mg tablet 08-01 00:00: 00 09-30 00:00 :00 No [id number] 250mg Take 1 tablet by mouth 2 (two) times daily. [facility] lidocaine 5 % (700 mg/patch) patch 07-22 00:00: 00 09-30 00:00 :00 No [id number] 1{patch } Apply 1 Patch to area(s) every 24 (twenty-fo ur) hours as needed for Localized pain. [facility] topiramate 25 mg tablet 05-17 00:00: 00 11-22 00:00 :00 No 25mg Take 1 tablet by mouth 2 (two) times daily. [facility] metoprolol succinate XL 25 mg 24 hr tablet 2019-05 00:00: 00 06-15 00:00 :00 No [id number] 12.5mg Take 0.5 tablets by mouth 2 (two) times daily for 90 days. [facility] FLUoxetine 20 mg capsule 2019-05 00:00: 00 09-06 00:00 :00 No 20mg Take 20 mg by mouth daily. [facility] norgestimat e-ethinyl estradiol 0.25-35 mg-mcg per tablet 11-17 00:00: 04-15 00:00 :00 No [id number] 1{tbl} Take 1 tablet by mouth daily. [facility] buPROPion XL (WELLBUTRIN XL) 150 mg 24 hr tablet 08-12 00:00: 01-04 00:00 :00 No [id number] 150mg Take 1 tablet by mouth daily. [facility] acetaminoph en 325 mg tablet 07-22 00:00: 01-04 00:00 :00 No [id number] 650mg Take 2 tablets by mouth every 6 (six) hours as needed for Pain (scale 1-3) or Pain (scale 4-6). [facility] vitamin w/FA tablet 07-22 00:00: 01-04 00:00 :00 No [id number] 1{tbl} Take 1 tablet by mouth daily. [facility] docusate calcium 240 mg capsule 07-22 00:00: 01-04 00:00 :00 No [id number] 240mg Take 1 capsule by mouth once daily as needed for Constipati on. [facility] ferrous sulfate 325 mg (65 mg iron) tablet 07-22 00:00: 01-04 00:00 :00 No [id number] 325mg Take 1 tablet by mouth 2 (two) times daily. [facility] ibuprofen 600 mg tablet 07-22 00:00: 01-04 00:00 :00 No [id number] 600mg Take 1 tablet by mouth every 6 (six) hours as needed (Pain). Take with food or milk. [facility] ALBUTEROL 90 mcg/actuati on inhaler 1-14 00:00: 05-01 00:00 :00 No [id number] 103 INHALE 2 PUFFS BY MOUTH EVERY 6 HOURS NEEDED FOR WHEEZING FOR SHORTNESS OF BREATH [facility] buPROPion SR (WELLBUTRIN SR) 150 mg SR tablet 1-09 00:00: 01-04 00:00 :00 No [id number] 150mg Take 1 tablet by mouth 2 (two) times daily. [facility] busPIRone 10 mg tablet 109 00:00: 00 01-04 00:00 :00 No [id number] 109 10mg Take 1 tablet by mouth 3 (three) times daily. [facility] Immunizations Ordered Immunization Name Filled Immunization Name Date Status Comments Source Influenza Virus Vaccine Quad IM, Preserv and ABX Free 6 MO-64 YRS 2022-02-27 00:00:00 Completed [facility] Influenza Virus Vaccine Quad IM, Preserv and ABX Free 6 MO-64 YRS 2022-02-27 00:00:00 Completed [facility] Influenza Virus Vaccine Quad IM, Preserv and ABX Free 6 MO-64 YRS 2022-02-27 00:00:00 Completed [facility] Influenza Virus Vaccine Quad IM, Preserv and ABX Free 6 MO-64 YRS 2022-02-27 00:00:00 Completed [facility] Influenza Virus Vaccine Quad IM, Preserv and ABX Free 6 MO-64 YRS 2022-02-27 00:00:00 Completed [facility] Influenza Virus Vaccine Quad IM, Preserv and ABX Free 6 MO-64 YRS 2022-02-27 00:00:00 Completed [facility] Influenza Virus Vaccine Quad IM, Preserv and ABX Free 6 MO-64 YRS 2022-02-27 00:00:00 Completed [facility] Influenza Virus Vaccine Quad IM, Preserv and ABX Free 6 MO-64 YRS 2022-02-27 00:00:00 Completed [facility] Influenza Virus Vaccine Quad IM, Preserv and ABX Free 6 MO-64 YRS 2022-02-27 00:00:00 Completed [facility] Influenza Virus Vaccine Quad IM, Preserv and ABX Free 6 MO-64 YRS 2022-02-27 00:00:00 Completed [facility] Influenza Virus Vaccine Quad IM, Preserv and ABX Free 6 MO-64 YRS 2022-02-27 00:00:00 Completed [facility] Influenza Virus Vaccine Quad IM, Preserv and ABX Free 6 MO-64 YRS 2022-02-27 00:00:00 Completed [facility] Influenza Virus Vaccine Quad IM, Preserv and ABX Free 6 MO-64 2022 00:00:00 Completed [facility] Influenza Virus Vaccine Quad IM, Preserv and ABX Free 6 MO-64 YRS 2022-02-27 00:00:00 Completed [facility] Influenza Virus Vaccine Quad IM, Preserv and ABX Free 6 MO-64 YRS 2022-02-27 00:00:00 Completed [facility] Influenza Virus Vaccine Quad IM, Preserv and ABX Free 6 MO-64 YRS 2022-02-27 00:00:00 Completed [facility] Influenza Virus Vaccine Quad IM, Preserv and ABX Free 6 MO-64 YRS 2022-02-27 00:00:00 Completed [facility] Influenza Virus Vaccine Quad IM, Preserv and ABX Free 6 MO-64 YRS 2022-02-27 00:00:00 Completed [facility] Influenza Virus Vaccine Quad IM, Preserv and ABX Free 6 MO-64 YRS 2022-02-27 00:00:00 Completed [facility] Influenza Virus Vaccine Quad IM, Preserv and ABX Free 6 MO-64 YRS 2022-02-27 00:00:00 Completed [facility] Influenza Virus Vaccine Quad IM, Preserv and ABX Free 6 MO-64 YRS 2022-02-27 00:00:00 Completed [facility] Influenza Virus Vaccine Quad IM, Preserv and ABX Free 6 MO-64 YRS 2022-02-27 00:00:00 Completed [facility] Influenza Virus Vaccine Quad IM, Preserv and ABX Free 6 MO-64 YRS 2022-02-27 00:00:00 Completed [facility] Influenza Virus Vaccine Quad IM, Preserv and ABX Free 6 MO-64 YRS 2022-02-27 00:00:00 Completed [facility] Influenza Virus Vaccine Quad IM, Preserv and ABX Free 6 MO-64 YRS 2022-02-27 00:00:00 Completed [facility] Influenza Virus Vaccine Quad IM, Preserv and ABX Free 6 MO-64 YRS 2022-02-27 00:00:00 Completed [facility] Influenza Virus Vaccine Quad IM, Preserv and ABX Free 6 MO-64 YRS 2022-02-27 00:00:00 Completed [facility] Influenza Virus Vaccine Quad IM, Preserv and ABX Free 6 MO-64 YRS 2022-02-27 00:00:00 Completed [facility] Influenza Virus Vaccine Quad IM, Preserv and ABX Free 6 MO-64 YRS 2022-02-27 00:00:00 Completed [facility] Influenza Virus Vaccine Quad IM, Preserv and ABX Free 6 MO-64 YRS 2022-02-27 00:00:00 Completed [facility] Influenza Virus Vaccine Quad IM, Preserv and ABX Free 6 MO-64 YRS 2022-02-27 00:00:00 Completed [facility] Influenza Virus Vaccine Quad IM, Preserv and ABX Free 6 MO-64 YRS 2022-02-27 00:00:00 Completed [facility] Influenza Virus Vaccine Quad IM, Preserv and ABX Free 6 MO-64 YRS 2022-02-27 00:00:00 Completed [facility] Influenza Virus Vaccine Quad IM, Preserv and ABX Free 6 MO-64 YRS 2022-02-27 00:00:00 Completed [facility] Influenza Virus Vaccine Quad IM, Preserv and ABX Free 6 MO-64 YRS 2022-02-27 00:00:00 Completed [facility] Influenza Virus Vaccine Quad IM, Preserv and ABX Free 6 MO-64 YRS 2022-02-27 00:00:00 Completed [facility] Influenza Virus Vaccine Quad IM, Preserv and ABX Free 6 MO-64 YRS 2022-02-27 00:00:00 Completed [facility] Influenza Virus Vaccine Quad IM, Preserv and ABX Free 6 MO-64 YRS 2022-02-27 00:00:00 Completed [facility] Influenza Virus Vaccine Quad IM, Preserv and ABX Free 6 MO-64 YRS 2022-02-27 00:00:00 Completed [facility] Influenza Virus Vaccine Quad IM, Preserv and ABX Free 6 MO-64 YRS 2022-02-27 00:00:00 Completed [facility] Influenza Virus Vaccine Quad IM, Preserv and ABX Free 6 MO-64 YRS 2022-02-27 00:00:00 Completed [facility] Influenza Virus Vaccine Quad IM, Preserv and ABX Free 6 MO-64 YRS (FLUCELVAX) 2022-02-27 00:00:00 Completed [facility] Influenza Virus Vaccine Quad IM, Preserv and ABX Free 6 MO-64 YRS (FLUCELVAX) 2022-02-27 00:00:00 Completed [facility] Influenza Virus Vaccine Quad IM, Preserv and ABX Free 6 MO-64 YRS (FLUCELVAX) 2022-02-27 00:00:00 Completed [facility] Influenza Virus Vaccine Quad .5 mL IM 6+ MO 2022-02-21 00:00:00 Completed [facility] Influenza Virus Vaccine Quad .5 mL IM 6+ MO 2022-02-21 00:00:00 Completed [facility] Influenza Virus Vaccine Quad .5 mL IM 6+ MO 2022-02-21 00:00:00 Completed [facility] Influenza Virus Vaccine Quad .5 mL IM 6+ MO 2022-02-21 00:00:00 Completed [facility] Influenza Virus Vaccine Quad .5 mL IM 6+ MO 2022-02-21 00:00:00 Completed [facility] Influenza Virus Vaccine Quad .5 mL IM 6+ MO 2022-02-21 00:00:00 Completed [facility] Influenza Virus Vaccine Quad .5 mL IM 6+ MO 2022-02-21 00:00:00 Completed [facility] Influenza Virus Vaccine Quad .5 mL IM 6+ MO 2022-02-21 00:00:00 Completed [facility] Influenza Virus Vaccine Quad .5 mL IM 6+ MO 2022-02-21 00:00:00 Completed [facility] Influenza Virus Vaccine Quad .5 mL IM 6+ MO 2022-02-21 00:00:00 Completed [facility] Influenza Virus Vaccine Quad .5 mL IM 6+ MO 2022-02-21 00:00:00 Completed [facility] Influenza Virus Vaccine Quad .5 mL IM 6+ MO 2022-02-21 00:00:00 Completed [facility] Influenza Virus Vaccine Quad .5 mL IM 6+ MO (FLUZONE/FLULAVAL/F LUARIX) 2022-02-21 00:00:00 Completed [facility] Influenza Virus Vaccine Quad .5 mL IM 6+ MO (FLUZONE/FLULAVAL/F LUARIX) 2022-02-21 00:00:00 Completed [facility] Influenza Virus Vaccine Quad .5 mL IM 6+ MO (FLUZONE/FLULAVAL/F LUARIX) 2022-02-21 00:00:00 Completed [facility] Influenza Virus Vaccine 2021-06-11 00:00:00 Completed [facility] Influenza Virus Vaccine 2021-06-11 00:00:00 Completed [facility] Influenza Virus Vaccine 2021-06-11 00:00:00 Completed [facility] Influenza Virus Vaccine 2021-06-11 00:00:00 Completed [facility] Influenza Virus Vaccine 2021-06-11 00:00:00 Completed [facility] Influenza Virus Vaccine 2021-06-11 00:00:00 Completed [facility] Influenza Virus Vaccine 2021-06-11 00:00:00 Completed [facility] Influenza Virus Vaccine 2021-06-11 00:00:00 Completed [facility] Influenza Virus Vaccine 2021-06-11 00:00:00 Completed [facility] Influenza Virus Vaccine 2021-06-11 00:00:00 Completed [facility] Influenza Virus Vaccine 2021-06-11 00:00:00 Completed [facility] Influenza Virus Vaccine 2021-06-11 00:00:00 Completed [facility] Influenza Virus Vaccine 2021-06-11 00:00:00 Completed [facility] Influenza Virus Vaccine 2021-06-11 00:00:00 Completed [facility] Influenza Virus Vaccine 2021-06-11 00:00:00 Completed [facility] Influenza Virus Vaccine 2021-06-11 00:00:00 Completed [facility] Influenza Virus Vaccine 2021-06-11 00:00:00 Completed [facility] Influenza Virus Vaccine 2021-06-11 00:00:00 Completed [facility] Influenza Virus Vaccine 2021-06-11 00:00:00 Completed [facility] Influenza Virus Vaccine 2021-06-11 00:00:00 Completed [facility] Influenza Virus Vaccine 2021-06-11 00:00:00 Completed [facility] Influenza Virus Vaccine 2021-06-11 00:00:00 Completed [facility] Influenza Virus Vaccine 2021-06-11 00:00:00 Completed [facility] Influenza Virus Vaccine 2021-06-11 00:00:00 Completed [facility] Influenza Virus Vaccine 2021-06-11 00:00:00 Completed [facility] Influenza Virus Vaccine 2021-06-11 00:00:00 Completed [facility] Influenza Virus Vaccine 2021-06-11 00:00:00 Completed [facility] Influenza Virus Vaccine 2021-06-11 00:00:00 Completed [facility] Influenza Virus Vaccine 2021-06-11 00:00:00 Completed [facility] Influenza Virus Vaccine 2021-06-11 00:00:00 Completed [facility] Influenza Virus Vaccine 2021-06-11 00:00:00 Completed [facility] Influenza Virus Vaccine 2021-06-11 00:00:00 Completed [facility] Influenza Virus Vaccine 2021-06-11 00:00:00 Completed [facility] Influenza Virus Vaccine 2021-06-11 00:00:00 Completed [facility] Influenza Virus Vaccine 2021-06-11 00:00:00 Completed [facility] Influenza Virus Vaccine 2021-06-11 00:00:00 Completed [facility] Influenza Virus Vaccine 2021-06-11 00:00:00 Completed [facility] Influenza Virus Vaccine 2021-06-11 00:00:00 Completed [facility] Influenza Virus Vaccine 2021-06-11 00:00:00 Completed [facility] Influenza Virus Vaccine 2021-06-11 00:00:00 Completed [facility] Influenza Virus Vaccine 2021-06-11 00:00:00 Completed [facility] Influenza Virus Vaccine Quad .5 mL IM 6+ MO 2021-06-11 00:00:00 Completed [facility] Influenza Virus Vaccine 2021-06-11 00:00:00 Completed [facility] Influenza Virus Vaccine Quad .5 mL IM 6+ MO 2021-06-11 00:00:00 Completed [facility] Influenza Virus Vaccine 2021-06-11 00:00:00 Completed [facility] Influenza Virus Vaccine Quad .5 mL IM 6+ MO 2021-06-11 00:00:00 Completed [facility] Influenza Virus Vaccine 2021-06-11 00:00:00 Completed [facility] Influenza Virus Vaccine Quad .5 mL IM 6+ MO 2021-06-11 00:00:00 Completed [facility] Influenza Virus Vaccine 2021-06-11 00:00:00 Completed [facility] Influenza Virus Vaccine Quad .5 mL IM 6+ MO 2021-06-11 00:00:00 Completed [facility] Influenza Virus Vaccine 2021-06-11 00:00:00 Completed [facility] Influenza Virus Vaccine Quad .5 mL IM 6+ MO 2021-06-11 00:00:00 Completed [facility] Influenza Virus Vaccine 2021-06-11 00:00:00 Completed [facility] Influenza Virus Vaccine Quad .5 mL IM 6+ MO 2021-06-11 00:00:00 Completed [facility] Influenza Virus Vaccine 2021-06-11 00:00:00 Completed [facility] Influenza Virus Vaccine Quad .5 mL IM 6+ MO 2021-06-11 00:00:00 Completed [facility] Influenza Virus Vaccine 2021-06-11 00:00:00 Completed [facility] Influenza Virus Vaccine Quad .5 mL IM 6+ MO 2021-06-11 00:00:00 Completed [facility] Influenza Virus Vaccine 2021-06-11 00:00:00 Completed [facility] Influenza Virus Vaccine Quad .5 mL IM 6+ MO 2021-06-11 00:00:00 Completed [facility] Influenza Virus Vaccine 2021-06-11 00:00:00 Completed [facility] Influenza Virus Vaccine Quad .5 mL IM 6+ MO 2021-06-11 00:00:00 Completed [facility] Influenza Virus Vaccine 2021-06-11 00:00:00 Completed [facility] Influenza Virus Vaccine Quad .5 mL IM 6+ MO 2021-06-11 00:00:00 Completed [facility] Influenza Virus Vaccine 2021-06-11 00:00:00 Completed [facility] Influenza Virus Vaccine Quad .5 mL IM 6+ MO (FLUZONE/FLULAVAL/F LUARIX) 2021-06-11 00:00:00 Completed [facility] Influenza Virus Vaccine 2021-06-11 00:00:00 Completed [facility] Influenza Virus Vaccine Quad .5 mL IM 6+ MO (FLUZONE/FLULAVAL/F LUARIX) 2021-06-11 00:00:00 Completed [facility] Influenza Virus Vaccine 2021-06-11 00:00:00 Completed [facility] Influenza Virus Vaccine Quad .5 mL IM 6+ MO (FLUZONE/FLULAVAL/F LUARIX) 2021-06-11 00:00:00 Completed [facility] Influenza Virus Vaccine 2020-05-19 00:00:00 Completed [facility] Influenza Virus Vaccine 2020-05-19 00:00:00 Completed [facility] Influenza Virus Vaccine 2020-05-19 00:00:00 Completed [facility] Influenza Virus Vaccine 2020-05-19 00:00:00 Completed [facility] Influenza Virus Vaccine 2020-05-19 00:00:00 Completed [facility] Influenza Virus Vaccine 2020-05-19 00:00:00 Completed [facility] Influenza Virus Vaccine 2020-05-19 00:00:00 Completed [facility] Influenza Virus Vaccine 2020-05-19 00:00:00 [facility] [facility] Vaccine 2020-05-19 00:00:00 Completed [facility] Influenza Virus Vaccine 2020-05-19 00:00:00 Completed [facility] Influenza Virus Vaccine 2020-05-19 00:00:00 Completed [facility] Influenza Virus Vaccine 2020-05-19 00:00:00 Completed [facility] Influenza Virus Vaccine 2020-05-19 00:00:00 Completed [facility] Influenza Virus Vaccine 2020-05-19 00:00:00 Completed [facility] Influenza Virus Vaccine 2020-05-19 00:00:00 Completed [facility] Influenza Virus Vaccine 2020-05-19 00:00:00 Completed [facility] Influenza Virus Vaccine 2020-05-19 00:00:00 Completed [facility] Influenza Virus Vaccine 2020-05-19 00:00:00 Completed [facility] Influenza Virus Vaccine 2020-05-19 00:00:00 Completed [facility] Influenza Virus Vaccine 2020-05-19 00:00:00 Completed [facility] Influenza Virus Vaccine 2020-05-19 00:00:00 Completed [facility] Influenza Virus Vaccine 2020-05-19 00:00:00 Completed [facility] Influenza Virus Vaccine 2020-05-19 00:00:00 Completed [facility] Influenza Virus Vaccine 2020-05-19 00:00:00 Completed [facility] Influenza Virus Vaccine 2020-05-19 00:00:00 Completed [facility] Influenza Virus Vaccine 2020-05-19 00:00:00 Completed [facility] Influenza Virus Vaccine 2020-05-19 00:00:00 Completed [facility] Influenza Virus Vaccine 2020-05-19 00:00:00 Completed [facility] Influenza Virus Vaccine 2020-05-19 00:00:00 Completed [facility] Influenza Virus Vaccine 2020-05-19 00:00:00 Completed [facility] Influenza Virus Vaccine 2020-05-19 00:00:00 Completed [facility] Influenza Virus Vaccine 2020-05-19 00:00:00 Completed [facility] Influenza Virus Vaccine 2020-05-19 00:00:00 Completed [facility] Influenza Virus Vaccine 2020-05-19 00:00:00 Completed [facility] Influenza Virus Vaccine 2020-05-19 00:00:00 Completed [facility] Influenza Virus Vaccine 2020-05-19 00:00:00 Completed [facility] Influenza Virus Vaccine 2020-05-19 00:00:00 Completed [facility] Influenza Virus Vaccine 2020-05-19 00:00:00 Completed [facility] Influenza Virus Vaccine 2020-05-19 00:00:00 Completed [facility] Influenza Virus Vaccine 2020-05-19 00:00:00 Completed [facility] Influenza Virus Vaccine 2020-05-19 00:00:00 Completed [facility] Influenza Virus Vaccine 2020-05-19 00:00:00 Completed [facility] Influenza Virus Vaccine 2020-05-19 00:00:00 Completed [facility] Influenza Virus Vaccine 2020-05-19 00:00:00 Completed [facility] Influenza Virus Vaccine 2020-05-19 00:00:00 Completed [facility] Influenza Virus Vaccine 2020-05-19 00:00:00 Completed [facility] Influenza Virus Vaccine 2020-05-19 00:00:00 Completed [facility] Influenza Virus Vaccine 2020-05-19 00:00:00 Completed [facility] Influenza Virus Vaccine 2020-05-19 00:00:00 Completed [facility] Influenza Virus Vaccine 2020-05-19 00:00:00 Completed [facility] Influenza Virus Vaccine 2020-05-19 00:00:00 Completed [facility] Influenza Virus Vaccine 2020-05-19 00:00:00 Completed [facility] Influenza Virus Vaccine 2020-05-19 00:00:00 Completed [facility] Influenza Virus Vaccine 2020-05-19 00:00:00 Completed [facility] Influenza Virus Vaccine 2020-05-19 00:00:00 Completed [facility] Influenza Virus Vaccine Recomb Quad IM, Preserv and ABX Free 18-64 YRS 2020-05-16 00:00:00 Completed [facility] Influenza Virus Vaccine Recomb Quad IM, Preserv and ABX Free 18-64 YRS 2020-05-16 00:00:00 Completed [facility] Influenza Virus Vaccine Recomb Quad IM, Preserv and ABX Free 18-64 YRS 2020-05-16 00:00:00 Completed [facility] Influenza Virus Vaccine Recomb Quad IM, Preserv and ABX Free 18-64 YRS 2020-05-16 00:00:00 Completed [facility] Influenza Virus Vaccine Recomb Quad IM, Preserv and ABX Free 18-64 YRS 2020-05-16 00:00:00 Completed [facility] Influenza Virus Vaccine Recomb Quad IM, Preserv and ABX Free 18-64 YRS 2020-05-16 00:00:00 Completed [facility] Influenza Virus Vaccine Recomb Quad IM, Preserv and ABX Free 18-64 YRS 2020-05-16 00:00:00 Completed [facility] Influenza Virus Vaccine Recomb Quad IM, Preserv and ABX Free 18-64 YRS 2020-05-16 00:00:00 Completed [facility] Influenza Virus Vaccine Recomb Quad IM, Preserv and ABX Free 18-64 YRS 2020-05-16 00:00:00 Completed [facility] Influenza Virus Vaccine Recomb Quad IM, Preserv and ABX Free 18-64 YRS 2020-05-16 00:00:00 Completed [facility] Influenza Virus Vaccine Recomb Quad IM, Preserv and ABX Free 18-64 YRS 2020-05-16 00:00:00 Completed [facility] Influenza Virus Vaccine Recomb Quad IM, Preserv and ABX Free 18-64 YRS 2020-05-16 00:00:00 Completed [facility] Influenza Virus Vaccine Recomb Quad IM, Preserv and ABX Free 18-64 YRS 2020-05-16 00:00:00 Completed [facility] Influenza Virus Vaccine Recomb Quad IM, Preserv and ABX Free 18-64 YRS 2020-05-16 00:00:00 Completed [facility] Influenza Virus Vaccine Recomb Quad IM, Preserv and ABX Free 18-64 YRS 2020-05-16 00:00:00 Completed [facility] Influenza Virus Vaccine Recomb Quad IM, Preserv and ABX Free 18-64 YRS 2020-05-16 00:00:00 Completed [facility] Influenza Virus Vaccine Recomb Quad IM, Preserv and ABX Free 18-64 YRS 2020-05-16 00:00:00 Completed [facility] Influenza Virus Vaccine Recomb Quad IM, Preserv and ABX Free 18-64 YRS 2020-05-16 00:00:00 Completed [facility] Influenza Virus Vaccine Recomb Quad IM, Preserv and ABX Free 18-64 YRS 2020-05-16 00:00:00 Completed [facility] Influenza Virus Vaccine Recomb Quad IM, Preserv and ABX Free 18-64 YRS 2020-05-16 00:00:00 Completed [facility] Influenza Virus Vaccine Recomb Quad IM, Preserv and ABX Free 18-64 YRS 2020-05-16 00:00:00 Completed [facility] Influenza Virus Vaccine Recomb Quad IM, Preserv and ABX Free 18-64 YRS 2020-05-16 00:00:00 Completed [facility] Influenza Virus Vaccine Recomb Quad IM, Preserv and ABX Free 18-64 YRS 2020-05-16 00:00:00 Completed [facility] Influenza Virus Vaccine Recomb Quad IM, Preserv and ABX Free 18-64 YRS 2020-05-16 00:00:00 Completed [facility] Influenza Virus Vaccine Recomb Quad IM, Preserv and ABX Free 18-64 YRS 2020-05-16 00:00:00 Completed [facility] Influenza Virus Vaccine Recomb Quad IM, Preserv and ABX Free 18-64 YRS 2020-05-16 00:00:00 Completed [facility] Influenza Virus Vaccine Recomb Quad IM, Preserv and ABX Free 18-64 YRS 2020-05-16 00:00:00 Completed [facility] Influenza Virus Vaccine Recomb Quad IM, Preserv and ABX Free 18-64 YRS 2020-05-16 00:00:00 Completed [facility] Influenza Virus Vaccine Recomb Quad IM, Preserv and ABX Free 18-64 YRS 2020-05-16 00:00:00 Completed [facility] Influenza Virus Vaccine Recomb Quad IM, Preserv and ABX Free 18-64 YRS 2020-05-16 00:00:00 Completed [facility] Influenza Virus Vaccine Recomb Quad IM, Preserv and ABX Free 18-64 YRS 2020-05-16 00:00:00 Completed [facility] Influenza Virus Vaccine Recomb Quad IM, Preserv and ABX Free 18-64 YRS 2020-05-16 00:00:00 Completed [facility] Influenza Virus Vaccine Recomb Quad IM, Preserv and ABX Free 18-64 YRS 2020-05-16 00:00:00 Completed [facility] Influenza Virus Vaccine Recomb Quad IM, Preserv and ABX Free 18-64 YRS 2020-05-16 00:00:00 Completed [facility] Influenza Virus Vaccine Recomb Quad IM, Preserv and ABX Free 18-64 YRS 2020-05-16 00:00:00 Completed [facility] Influenza Virus Vaccine Recomb Quad IM, Preserv and ABX Free 18-64 YRS 2020-05-16 00:00:00 Completed [facility] Influenza Virus Vaccine Recomb Quad IM, Preserv and ABX Free 18-64 YRS 2020-05-16 00:00:00 Completed [facility] Influenza Virus Vaccine Recomb Quad IM, Preserv and ABX Free 18-64 YRS 2020-05-16 00:00:00 Completed [facility] Influenza Virus Vaccine Recomb Quad IM, Preserv and ABX Free 18-64 YRS 2020-05-16 00:00:00 Completed [facility] Influenza Virus Vaccine Recomb Quad IM, Preserv and ABX Free 18-64 YRS 2020-05-16 00:00:00 Completed [facility] Influenza Virus Vaccine Recomb Quad IM, Preserv and ABX Free 18-64 YRS 2020-05-16 00:00:00 Completed [facility] Influenza Virus Vaccine Recomb Quad IM, Preserv and ABX Free 18-64 YRS 2020-05-16 00:00:00 Completed [facility] Influenza Virus Vaccine Recomb Quad IM, Preserv and ABX Free 18-64 YRS 2020-05-16 00:00:00 Completed [facility] Influenza Virus Vaccine Recomb Quad IM, Preserv and ABX Free 18-64 YRS 2020-05-16 00:00:00 Completed [facility] Influenza Virus Vaccine Recomb Quad IM, Preserv and ABX Free 18-64 YRS 2020-05-16 00:00:00 Completed [facility] Influenza Virus Vaccine Recomb Quad IM, Preserv and ABX Free 18-64 YRS 2020-05-16 00:00:00 Completed [facility] Influenza Virus Vaccine Recomb Quad IM, Preserv and ABX Free 18-64 YRS 2020-05-16 00:00:00 Completed [facility] Influenza Virus Vaccine Recomb Quad IM, Preserv and ABX Free 18-64 YRS 2020-05-16 00:00:00 Completed [facility] Influenza Virus Vaccine Recomb Quad IM, Preserv and ABX Free 18-64 YRS 2020-05-16 00:00:00 Completed [facility] Influenza Virus Vaccine Recomb Quad IM, Preserv and ABX Free 18-64 YRS 2020-05-16 00:00:00 Completed [facility] Influenza Virus Vaccine Recomb Quad IM, Preserv and ABX Free 18-64 YRS 2020-05-16 00:00:00 Completed [facility] Influenza Virus Vaccine Recomb Quad IM, Preserv and ABX Free 18-64 YRS 2020-05-16 00:00:00 Completed [facility] Influenza Virus Vaccine Recomb Quad IM, Preserv and ABX Free 18-64 YRS 2020-05-16 00:00:00 Completed [facility] Influenza Virus Vaccine Recomb Quad IM, Preserv and ABX Free 18-64 YRS 2020-05-16 00:00:00 Completed [facility] Influenza Virus Vaccine Recomb Quad IM, Preserv and ABX Free 18-64 YRS 2020-05-16 00:00:00 Completed [facility] TDAP (ADACEL) VACCINE 2019-05-21 00:00:00 Completed [facility] TDAP (ADACEL) VACCINE 2019-05-21 00:00:00 Completed [facility] TDAP (ADACEL) VACCINE 2019-05-21 00:00:00 Completed [facility] TDAP (ADACEL) VACCINE 2019-05-21 00:00:00 Completed [facility] TDAP (ADACEL) VACCINE 2019-05-21 00:00:00 Completed [facility] TDAP (ADACEL) VACCINE 2019-05-21 00:00:00 Completed [facility] TDAP (ADACEL) VACCINE 2019-05-21 00:00:00 Completed [facility] TDAP (ADACEL) VACCINE 2019-05-21 00:00:00 Completed [facility] TDAP (ADACEL) VACCINE 2019-05-21 00:00:00 Completed [facility] TDAP (ADACEL) VACCINE 2019-05-21 00:00:00 Completed [facility] TDAP (ADACEL) VACCINE 2019-05-21 00:00:00 Completed [facility] TDAP (ADACEL) VACCINE 2019-05-21 00:00:00 Completed [facility] TDAP (ADACEL) VACCINE 2019-05-21 00:00:00 Completed [facility] TDAP (ADACEL) VACCINE 2019-05-21 00:00:00 Completed [facility] TDAP (ADACEL) VACCINE 2019-05-21 00:00:00 Completed [facility] TDAP (ADACEL) VACCINE 2019-05-21 00:00:00 Completed [facility] TDAP (ADACEL) VACCINE 2019-05-21 00:00:00 Completed [facility] TDAP (ADACEL) VACCINE 2019-05-21 00:00:00 Completed [facility] TDAP (ADACEL) VACCINE 2019-05-21 00:00:00 Completed [facility] TDAP (ADACEL) VACCINE 2019-05-21 00:00:00 Completed [facility] TDAP (ADACEL) VACCINE 2019-05-21 00:00:00 Completed [facility] TDAP (ADACEL) VACCINE 2019-05-21 00:00:00 Completed [facility] TDAP (ADACEL) VACCINE 2019-05-21 00:00:00 Completed [facility] TDAP (ADACEL) VACCINE 2019-05-21 00:00:00 Completed [facility] TDAP (ADACEL) VACCINE 2019-05-21 00:00:00 Completed [facility] TDAP (ADACEL) VACCINE 2019-05-21 00:00:00 Completed [facility] TDAP (ADACEL) VACCINE 2019-05-21 00:00:00 Completed [facility] TDAP (ADACEL) VACCINE 2019-05-21 00:00:00 Completed [facility] TDAP (ADACEL) VACCINE 2019-05-21 00:00:00 Completed [facility] TDAP (ADACEL) VACCINE 2019-05-21 00:00:00 Completed [facility] TDAP (ADACEL) VACCINE 2019-05-21 00:00:00 Completed [facility] TDAP (ADACEL) VACCINE 2019-05-21 00:00:00 Completed [facility] TDAP (ADACEL) VACCINE 2019-05-21 00:00:00 Completed [facility] TDAP (ADACEL) VACCINE 2019-05-21 00:00:00 Completed [facility] TDAP (ADACEL) VACCINE 2019-05-21 00:00:00 Completed [facility] TDAP (ADACEL) VACCINE 2019-05-21 00:00:00 Completed [facility] TDAP (ADACEL) VACCINE 2019-05-21 00:00:00 Completed [facility] TDAP (ADACEL) VACCINE 2019-05-21 00:00:00 Completed [facility] TDAP (ADACEL) VACCINE 2019-05-21 00:00:00 Completed [facility] TDAP (ADACEL) VACCINE 2019-05-21 00:00:00 Completed [facility] TDAP (ADACEL) VACCINE 2019-05-21 00:00:00 Completed [facility] TDAP (ADACEL) VACCINE 2019-05-21 00:00:00 Completed [facility] TDAP (ADACEL) VACCINE 2019-05-21 00:00:00 Completed [facility] TDAP (ADACEL) VACCINE 2019-05-21 00:00:00 Completed [facility] TDAP (ADACEL) VACCINE 2019-05-21 00:00:00 Completed [facility] TDAP (ADACEL) VACCINE 2019-05-21 00:00:00 Completed [facility] TDAP (ADACEL) VACCINE 2019-05-21 00:00:00 Completed [facility] TDAP (ADACEL) VACCINE 2019-05-21 00:00:00 Completed [facility] TDAP (ADACEL) VACCINE 2019-05-21 00:00:00 Completed [facility] TDAP (ADACEL) VACCINE 2019-05-21 00:00:00 Completed [facility] TDAP (ADACEL) VACCINE 2019-05-21 00:00:00 Completed [facility] TDAP (ADACEL) VACCINE 2019-05-21 00:00:00 Completed [facility] TDAP (ADACEL) VACCINE 2019-05-21 00:00:00 Completed [facility] TDAP (ADACEL) VACCINE 2019-05-21 00:00:00 Completed [facility] TDAP (ADACEL) VACCINE 2019-05-21 00:00:00 Completed [facility] Influenza Virus Vaccine Quad .5 mL IM 6+ MO 2019-02-06 00:00:00 Completed [facility] Influenza Virus Vaccine Quad .5 mL IM 6+ MO 2019-02-06 00:00:00 Completed [facility] Influenza Virus Vaccine Quad .5 mL IM 6+ MO 2019-02-06 00:00:00 Completed [facility] Influenza Virus Vaccine Quad .5 mL IM 6+ MO 2019-02-06 00:00:00 Completed [facility] Influenza Virus Vaccine Quad .5 mL IM 6+ MO 2019-02-06 00:00:00 Completed [facility] Influenza Virus Vaccine Quad .5 mL IM 6+ MO 2019-02-06 00:00:00 Completed [facility] Influenza Virus Vaccine Quad .5 mL IM 6+ MO 2019-02-06 00:00:00 Completed [facility] Influenza Virus Vaccine Quad .5 mL IM 6+ MO 2019-02-06 00:00:00 Completed [facility] Influenza Virus Vaccine Quad .5 mL IM 6+ MO 2019-02-06 00:00:00 Completed [facility] Influenza Virus Vaccine Quad .5 mL IM 6+ MO 2019-02-06 00:00:00 Completed [facility] Influenza Virus Vaccine Quad .5 mL IM 6+ MO 2019-02-06 00:00:00 Completed [facility] Influenza Virus Vaccine Quad .5 mL IM 6+ MO 2019-02-06 00:00:00 Completed [facility] Influenza Virus Vaccine Quad .5 mL IM 6+ MO 2019-02-06 00:00:00 Completed [facility] Influenza Virus Vaccine Quad .5 mL IM 6+ MO 2019-02-06 00:00:00 Completed [facility] Influenza Virus Vaccine Quad .5 mL IM 6+ MO 2019-02-06 00:00:00 Completed [facility] Influenza Virus Vaccine Quad .5 mL IM 6+ MO 2019-02-06 00:00:00 Completed [facility] Influenza Virus Vaccine Quad .5 mL IM 6+ MO 2019-02-06 00:00:00 Completed [facility] Influenza Virus Vaccine Quad .5 mL IM 6+ MO 2019-02-06 00:00:00 Completed [facility] Influenza Virus Vaccine Quad .5 mL IM 6+ MO 2019-02-06 00:00:00 Completed [facility] Influenza Virus Vaccine Quad .5 mL IM 6+ MO 2019-02-06 00:00:00 Completed [facility] Influenza Virus Vaccine Quad .5 mL IM 6+ MO 2019-02-06 00:00:00 Completed [facility] Influenza Virus Vaccine Quad .5 mL IM 6+ MO 2019-02-06 00:00:00 Completed [facility] Influenza Virus Vaccine Quad .5 mL IM 6+ MO 2019-02-06 00:00:00 Completed [facility] Influenza Virus Vaccine Quad .5 mL IM 6+ MO 2019-02-06 00:00:00 Completed [facility] Influenza Virus Vaccine Quad .5 mL IM 6+ MO 2019-02-06 00:00:00 Completed [facility] Influenza Virus Vaccine Quad .5 mL IM 6+ MO 2019-02-06 00:00:00 Completed [facility] Influenza Virus Vaccine Quad .5 mL IM 6+ MO 2019-02-06 00:00:00 Completed [facility] Influenza Virus Vaccine Quad .5 mL IM 6+ MO 2019-02-06 00:00:00 Completed [facility] Influenza Virus Vaccine Quad .5 mL IM 6+ MO 2019-02-06 00:00:00 Completed [facility] Influenza Virus Vaccine Quad .5 mL IM 6+ MO 2019-02-06 00:00:00 Completed [facility] Influenza Virus Vaccine Quad .5 mL IM 6+ MO 2019-02-06 00:00:00 Completed [facility] Influenza Virus Vaccine Quad .5 mL IM 6+ MO 2019-02-06 00:00:00 Completed [facility] Influenza Virus Vaccine Quad .5 mL IM 6+ MO 2019-02-06 00:00:00 Completed [facility] Influenza Virus Vaccine Quad .5 mL IM 6+ MO 2019-02-06 00:00:00 Completed [facility] Influenza Virus Vaccine Quad .5 mL IM 6+ MO 2019-02-06 00:00:00 Completed [facility] Influenza Virus Vaccine Quad .5 mL IM 6+ MO 2019-02-06 00:00:00 Completed [facility] Influenza Virus Vaccine Quad .5 mL IM 6+ MO 2019-02-06 00:00:00 Completed [facility] Influenza Virus Vaccine Quad .5 mL IM 6+ MO 2019-02-06 00:00:00 Completed [facility] Influenza Virus Vaccine Quad .5 mL IM 6+ MO 2019-02-06 00:00:00 Completed [facility] Influenza Virus Vaccine Quad .5 mL IM 6+ MO 2019-02-06 00:00:00 Completed [facility] Influenza Virus Vaccine Quad .5 mL IM 6+ MO 2019-02-06 00:00:00 Completed [facility] Influenza Virus Vaccine Quad .5 mL IM 6+ MO 2019-02-06 00:00:00 Completed [facility] Influenza Virus Vaccine Quad .5 mL IM 6+ MO 2019-02-06 00:00:00 Completed [facility] Influenza Virus Vaccine Quad .5 mL IM 6+ MO 2019-02-06 00:00:00 Completed [facility] Influenza Virus Vaccine Quad .5 mL IM 6+ MO 2019-02-06 00:00:00 Completed [facility] Influenza Virus Vaccine Quad .5 mL IM 6+ MO 2019-02-06 00:00:00 Completed [facility] Influenza Virus Vaccine Quad .5 mL IM 6+ MO 2019-02-06 00:00:00 Completed [facility] Influenza Virus Vaccine Quad .5 mL IM 6+ MO 2019-02-06 00:00:00 Completed [facility] Influenza Virus Vaccine Quad .5 mL IM 6+ MO 2019-02-06 00:00:00 Completed [facility] Influenza Virus Vaccine Quad .5 mL IM 6+ MO 2019-02-06 00:00:00 Completed [facility] Influenza Virus Vaccine Quad .5 mL IM 6+ MO 2019-02-06 00:00:00 Completed [facility] Influenza Virus Vaccine Quad .5 mL IM 6+ MO 2019-02-06 00:00:00 Completed [facility] Influenza Virus Vaccine Quad .5 mL IM 6+ MO (FLUZONE/FLULAVAL/F LUARIX) 2019-02-06 00:00:00 Completed [facility] Influenza Virus Vaccine Quad .5 mL IM 6+ MO (FLUZONE/FLULAVAL/F LUARIX) 2019-02-06 00:00:00 Completed [facility] Influenza Virus Vaccine Quad .5 mL IM 6+ MO (FLUZONE/FLULAVAL/F LUARIX) 2019-02-06 00:00:00 Completed [facility] Influenza Virus Vaccine Quad .5 mL IM 6+ MO (FLUZONE/FLULAVAL/F LUARIX) Unknown Completed [facility] TDAP (ADACEL) VACCINE Unknown Completed [facility] Influenza Virus Vaccine Recomb Quad IM, Preserv and ABX Free 18-64 YRS Unknown Completed [facility] Influenza Virus Vaccine Unknown Completed [facility] Influenza Virus Vaccine Quad IM, Preserv and ABX Free 6 MO-64 YRS (FLUCELVAX) Unknown Completed [facility] Influenza Virus Vaccine Quad .5 mL IM 6+ MO (FLUZONE/FLULAVAL/F LUARIX) Unknown Completed [facility] TDAP (ADACEL) VACCINE Unknown Completed [facility] Influenza Virus Vaccine Recomb Quad IM, Preserv and ABX Free 18-64 YRS Unknown Completed [facility] Influenza Virus Vaccine Unknown Completed [facility] Influenza Virus Vaccine Quad IM, Preserv and ABX Free 6 MO-64 YRS (FLUCELVAX) Unknown Completed [facility] Influenza Virus Vaccine Quad .5 mL IM 6+ MO (FLUZONE/FLULAVAL/F LUARIX) Unknown Completed [facility] TDAP (ADACEL) VACCINE Unknown Completed [facility] Influenza Virus Vaccine Recomb Quad IM, Preserv and ABX Free 18-64 YRS Unknown Completed [facility] Influenza Virus Vaccine Unknown Completed [facility] Influenza Virus Vaccine Quad .5 mL IM 6+ MO (FLUZONE/FLULAVAL/F LUARIX) Unknown Completed [facility] TDAP (ADACEL) VACCINE Unknown Completed [facility] Influenza Virus Vaccine Recomb Quad IM, Preserv and ABX Free 18-64 YRS Unknown Completed [facility] Influenza Virus Vaccine Unknown Completed [facility] Influenza Virus Vaccine Quad .5 mL IM 6+ MO (FLUZONE/FLULAVAL/F LUARIX) Unknown Completed [facility] TDAP (ADACEL) VACCINE Unknown Completed [facility] Influenza Virus Vaccine Recomb Quad IM, Preserv and ABX Free 18-64 YRS Unknown Completed [facility] Influenza Virus Vaccine Unknown Completed [facility] Influenza Virus Vaccine Quad .5 mL IM 6+ MO (FLUZONE/FLULAVAL/F LUARIX) Unknown Completed [facility] TDAP (ADACEL) VACCINE Unknown Completed [facility] Influenza Virus Vaccine Recomb Quad IM, Preserv and ABX Free 18-64 YRS Unknown Completed [facility] Influenza Virus Vaccine Unknown Completed [facility] Influenza Virus Vaccine Quad .5 mL IM 6+ MO (FLUZONE/FLULAVAL/F LUARIX) Unknown Completed [facility] TDAP (ADACEL) VACCINE Unknown Completed [facility] Influenza Virus Vaccine Recomb Quad IM, Preserv and ABX Free 18-64 YRS Unknown Completed [facility] Influenza Virus Vaccine Unknown Completed [facility] Influenza Virus Vaccine Quad .5 mL IM 6+ MO (FLUZONE/FLULAVAL/F LUARIX) Unknown Completed [facility] TDAP (ADACEL) VACCINE Unknown Completed [facility] Influenza Virus Vaccine Recomb Quad IM, Preserv and ABX Free 18-64 YRS Unknown Completed [facility] Influenza Virus Vaccine Unknown Completed [facility] Influenza Virus Vaccine Quad .5 mL IM 6+ MO (FLUZONE/FLULAVAL/F LUARIX) Unknown Completed [facility] TDAP (ADACEL) VACCINE Unknown Completed [facility] Influenza Virus Vaccine Recomb Quad IM, Preserv and ABX Free 18-64 YRS Unknown Completed [facility] Influenza Virus Vaccine Unknown Completed [facility] Influenza Virus Vaccine Quad .5 mL IM 6+ MO (FLUZONE/FLULAVAL/F LUARIX) Unknown Completed [facility] TDAP (ADACEL) VACCINE Unknown Completed [facility] Influenza Virus Vaccine Recomb Quad IM, Preserv and ABX Free 18-64 YRS Unknown Completed [facility] Influenza Virus Vaccine Unknown Completed [facility] Influenza Virus Vaccine Quad .5 mL IM 6+ MO (FLUZONE/FLULAVAL/F LUARIX) Unknown Completed [facility] TDAP (ADACEL) VACCINE Unknown Completed [facility] Influenza Virus Vaccine Recomb Quad IM, Preserv and ABX Free 18-64 YRS Unknown Completed [facility] Influenza Virus Vaccine Unknown Completed [facility] Influenza Virus Vaccine Quad .5 mL IM 6+ MO (FLUZONE/FLULAVAL/F LUARIX) Unknown Completed [facility] TDAP (ADACEL) VACCINE Unknown Completed [facility] Influenza Virus Vaccine Recomb Quad IM, Preserv and ABX Free 18-64 YRS Unknown Completed [facility] Influenza Virus Vaccine Unknown Completed [facility] Influenza Virus Vaccine Quad .5 mL IM 6+ MO (FLUZONE/FLULAVAL/F LUARIX) Unknown Completed [facility] TDAP (ADACEL) VACCINE Unknown Completed [facility] Influenza Virus Vaccine Recomb Quad IM, Preserv and ABX Free 18-64 YRS Unknown Completed [facility] Influenza Virus Vaccine Unknown Completed [facility] Influenza Virus Vaccine Quad .5 mL IM 6+ MO (FLUZONE/FLULAVAL/F LUARIX) Unknown Completed [facility] TDAP (ADACEL) VACCINE Unknown Completed [facility] Influenza Virus Vaccine Recomb Quad IM, Preserv and ABX Free 18-64 YRS Unknown Completed [facility] Influenza Virus Vaccine Unknown Completed [facility] Influenza Virus Vaccine Quad .5 mL IM 6+ MO (FLUZONE/FLULAVAL/F LUARIX) Unknown Completed [facility] TDAP (ADACEL) VACCINE Unknown Completed [facility] Influenza Virus Vaccine Recomb Quad IM, Preserv and ABX Free 18-64 YRS Unknown Completed [facility] Influenza Virus Vaccine Unknown Completed [facility] Influenza Virus Vaccine Quad .5 mL IM 6+ MO (FLUZONE/FLULAVAL/F LUARIX) Unknown Completed [facility] TDAP (ADACEL) VACCINE Unknown Completed [facility] Influenza Virus Vaccine Recomb Quad IM, Preserv and ABX Free 18-64 YRS Unknown Completed [facility] Influenza Virus Vaccine Unknown Completed [facility] Influenza Virus Vaccine Quad .5 mL IM 6+ MO (FLUZONE/FLULAVAL/F LUARIX) Unknown Completed [facility] TDAP (ADACEL) VACCINE Unknown Completed [facility] Influenza Virus Vaccine Recomb Quad IM, Preserv and ABX Free 18-64 YRS Unknown Completed [facility] Influenza Virus Vaccine Unknown Completed [facility] Influenza Virus Vaccine Quad .5 mL IM 6+ MO (FLUZONE/FLULAVAL/F LUARIX) Unknown Completed [facility] TDAP (ADACEL) VACCINE Unknown Completed [facility] Influenza Virus Vaccine Recomb Quad IM, Preserv and ABX Free 18-64 YRS Unknown Completed [facility] Influenza Virus Vaccine Unknown Completed [facility] Influenza Virus Vaccine Quad .5 mL IM 6+ MO (FLUZONE/FLULAVAL/F LUARIX) Unknown Completed [facility] TDAP (ADACEL) VACCINE Unknown Completed [facility] Influenza Virus Vaccine Recomb Quad IM, Preserv and ABX Free 18-64 YRS Unknown Completed [facility] Influenza Virus Vaccine Unknown Completed [facility] Influenza Virus Vaccine Quad .5 mL IM 6+ MO (FLUZONE/FLULAVAL/F LUARIX) Unknown Completed [facility] TDAP (ADACEL) VACCINE Unknown Completed [facility] Influenza Virus Vaccine Recomb Quad IM, Preserv and ABX Free 18-64 YRS Unknown Completed [facility] Influenza Virus Vaccine Unknown Completed [facility] Influenza Virus Vaccine Quad .5 mL IM 6+ MO (FLUZONE/FLULAVAL/F LUARIX) Unknown Completed [facility] TDAP (ADACEL) VACCINE Unknown Completed [facility] Influenza Virus Vaccine Recomb Quad IM, Preserv and ABX Free 18-64 YRS Unknown Completed [facility] Influenza Virus Vaccine Unknown Completed [facility] Influenza Virus Vaccine Quad .5 mL IM 6+ MO (FLUZONE/FLULAVAL/F LUARIX) Unknown Completed [facility] TDAP (ADACEL) VACCINE Unknown Completed [facility] Influenza Virus Vaccine Recomb Quad IM, Preserv and ABX Free 18-64 YRS Unknown Completed [facility] Influenza Virus Vaccine Unknown Completed [facility] Influenza Virus Vaccine Quad .5 mL IM 6+ MO (FLUZONE/FLULAVAL/F LUARIX) Unknown Completed [facility] TDAP (ADACEL) VACCINE Unknown Completed [facility] Influenza Virus Vaccine Recomb Quad IM, Preserv and ABX Free 18-64 YRS Unknown Completed [facility] Influenza Virus Vaccine Unknown Completed [facility] Influenza Virus Vaccine Quad .5 mL IM 6+ MO (FLUZONE/FLULAVAL/F LUARIX) Unknown Completed [facility] TDAP (ADACEL) VACCINE Unknown Completed [facility] Influenza Virus Vaccine Recomb Quad IM, Preserv and ABX Free 18-64 YRS Unknown Completed [facility] Influenza Virus Vaccine Unknown Completed [facility] Influenza Virus Vaccine Quad .5 mL IM 6+ MO (FLUZONE/FLULAVAL/F LUARIX) Unknown Completed [facility] TDAP (ADACEL) VACCINE Unknown Completed [facility] Influenza Virus Vaccine Recomb Quad IM, Preserv and ABX Free 18-64 YRS Unknown Completed [facility] Influenza Virus Vaccine Unknown Completed [facility] Influenza Virus Vaccine Quad .5 mL IM 6+ MO (FLUZONE/FLULAVAL/F LUARIX) Unknown Completed [facility] TDAP (ADACEL) VACCINE Unknown Completed [facility] Influenza Virus Vaccine Recomb Quad IM, Preserv and ABX Free 18-64 YRS Unknown Completed [facility] Influenza Virus Vaccine Unknown Completed [facility] Influenza Virus Vaccine Quad .5 mL IM 6+ MO (FLUZONE/FLULAVAL/F LUARIX) Unknown Completed [facility] TDAP (ADACEL) VACCINE Unknown Completed [facility] Influenza Virus Vaccine Recomb Quad IM, Preserv and ABX Free 18-64 YRS Unknown Completed [facility] Influenza Virus Vaccine Unknown Completed [facility] Influenza Virus Vaccine Quad .5 mL IM 6+ MO (FLUZONE/FLULAVAL/F LUARIX) Unknown Completed [facility] TDAP (ADACEL) VACCINE Unknown Completed [facility] Influenza Virus Vaccine Recomb Quad IM, Preserv and ABX Free 18-64 YRS Unknown Completed [facility] Influenza Virus Vaccine Unknown Completed [facility] Influenza Virus Vaccine Quad .5 mL IM 6+ MO (FLUZONE/FLULAVAL/F LUARIX) Unknown Completed [facility] TDAP (ADACEL) VACCINE Unknown Completed [facility] Influenza Virus Vaccine Recomb Quad IM, Preserv and ABX Free 18-64 YRS Unknown Completed [facility] Influenza Virus Vaccine Unknown Completed [facility] Influenza Virus Vaccine Quad .5 mL IM 6+ MO (FLUZONE/FLULAVAL/F LUARIX) Unknown Completed [facility] TDAP (ADACEL) VACCINE Unknown Completed [facility] Influenza Virus Vaccine Recomb Quad IM, Preserv and ABX Free 18-64 YRS Unknown Completed [facility] Influenza Virus Vaccine Unknown Completed [facility] Influenza Virus Vaccine Quad .5 mL IM 6+ MO (FLUZONE/FLULAVAL/F LUARIX) Unknown Completed [facility] TDAP (ADACEL) VACCINE Unknown Completed [facility] Influenza Virus Vaccine Recomb Quad IM, Preserv and ABX Free 18-64 YRS Unknown Completed [facility] Influenza Virus Vaccine Unknown Completed [facility] Influenza Virus Vaccine Quad .5 mL IM 6+ MO (FLUZONE/FLULAVAL/F LUARIX) Unknown Completed [facility] TDAP (ADACEL) VACCINE Unknown Completed [facility] Influenza Virus Vaccine Recomb Quad IM, Preserv and ABX Free 18-64 YRS Unknown Completed [facility] Influenza Virus Vaccine Unknown Completed [facility] Influenza Virus Vaccine Quad .5 mL IM 6+ MO (FLUZONE/FLULAVAL/F LUARIX) Unknown Completed [facility] TDAP (ADACEL) VACCINE Unknown Completed [facility] Influenza Virus Vaccine Recomb Quad IM, Preserv and ABX Free 18-64 YRS Unknown Completed [facility] Influenza Virus Vaccine Unknown Completed [facility] Influenza Virus Vaccine Quad .5 mL IM 6+ MO (FLUZONE/FLULAVAL/F LUARIX) Unknown Completed [facility] TDAP (ADACEL) VACCINE Unknown Completed [facility] Influenza Virus Vaccine Recomb Quad IM, Preserv and ABX Free 18-64 YRS Unknown Completed [facility] Influenza Virus Vaccine Unknown Completed [facility] Influenza Virus Vaccine Quad .5 mL IM 6+ MO (FLUZONE/FLULAVAL/F LUARIX) Unknown Completed [facility] TDAP (ADACEL) VACCINE Unknown Completed [facility] Influenza Virus Vaccine Recomb Quad IM, Preserv and ABX Free 18-64 YRS Unknown Completed [facility] Influenza Virus Vaccine Unknown Completed [facility] Influenza Virus Vaccine Quad .5 mL IM 6+ MO (FLUZONE/FLULAVAL/F LUARIX) Unknown Completed [facility] TDAP (ADACEL) VACCINE Unknown Completed [facility] Influenza Virus Vaccine Recomb Quad IM, Preserv and ABX Free 18-64 YRS Unknown Completed [facility] Influenza Virus Vaccine Unknown Completed [facility] Influenza Virus Vaccine Quad .5 mL IM 6+ MO (FLUZONE/FLULAVAL/F LUARIX) Unknown Completed [facility] TDAP (ADACEL) VACCINE Unknown Completed [facility] Influenza Virus Vaccine Recomb Quad IM, Preserv and ABX Free 18-64 YRS Unknown Completed [facility] Influenza Virus Vaccine Unknown Completed [facility] Influenza Virus Vaccine Quad .5 mL IM 6+ MO (FLUZONE/FLULAVAL/F LUARIX) Unknown Completed [facility] TDAP (ADACEL) VACCINE Unknown Completed [facility] Influenza Virus Vaccine Recomb Quad IM, Preserv and ABX Free 18-64 YRS Unknown Completed [facility] Influenza Virus Vaccine Unknown Completed [facility] Influenza Virus Vaccine Quad .5 mL IM 6+ MO (FLUZONE/FLULAVAL/F LUARIX) Unknown Completed [facility] TDAP (ADACEL) VACCINE Unknown Completed [facility] Influenza Virus Vaccine Recomb Quad IM, Preserv and ABX Free 18-64 YRS Unknown Completed [facility] Influenza Virus Vaccine Unknown Completed [facility] Influenza Virus Vaccine Quad .5 mL IM 6+ MO (FLUZONE/FLULAVAL/F LUARIX) Unknown Completed [facility] TDAP (ADACEL) VACCINE Unknown Completed [facility] Influenza Virus Vaccine Recomb Quad IM, Preserv and ABX Free 18-64 YRS Unknown Completed [facility] Influenza Virus Vaccine Unknown Completed [facility] Influenza Virus Vaccine Quad .5 mL IM 6+ MO (FLUZONE/FLULAVAL/F LUARIX) Unknown Completed [facility] TDAP (ADACEL) VACCINE Unknown Completed [facility] Influenza Virus Vaccine Recomb Quad IM, Preserv and ABX Free 18-64 YRS Unknown Completed [facility] Influenza Virus Vaccine Unknown Completed [facility] Influenza Virus Vaccine Quad .5 mL IM 6+ MO (FLUZONE/FLULAVAL/F LUARIX) Unknown Completed [facility] TDAP (ADACEL) VACCINE Unknown Completed [facility] Influenza Virus Vaccine Recomb Quad IM, Preserv and ABX Free 18-64 YRS Unknown Completed [facility] Influenza Virus Vaccine Unknown Completed [facility] Influenza Virus Vaccine Quad .5 mL IM 6+ MO (FLUZONE/FLULAVAL/F LUARIX) Unknown Completed [facility] TDAP (ADACEL) VACCINE Unknown Completed [facility] Influenza Virus Vaccine Recomb Quad IM, Preserv and ABX Free 18-64 YRS Unknown Completed [facility] Influenza Virus Vaccine Unknown Completed [facility] Influenza Virus Vaccine Quad .5 mL IM 6+ MO (FLUZONE/FLULAVAL/F LUARIX) Unknown Completed [facility] TDAP (ADACEL) VACCINE Unknown Completed [facility] Influenza Virus Vaccine Recomb Quad IM, Preserv and ABX Free 18-64 YRS Unknown Completed [facility] Influenza Virus Vaccine Unknown Completed [facility] Influenza Virus Vaccine Quad .5 mL IM 6+ MO (FLUZONE/FLULAVAL/F LUARIX) Unknown Completed [facility] TDAP (ADACEL) VACCINE Unknown Completed [facility] Influenza Virus Vaccine Recomb Quad IM, Preserv and ABX Free 18-64 YRS Unknown Completed [facility] Influenza Virus Vaccine Unknown Completed [facility] Influenza Virus Vaccine Quad .5 mL IM 6+ MO (FLUZONE/FLULAVAL/F LUARIX) Unknown Completed [facility] TDAP (ADACEL) VACCINE Unknown Completed [facility] Influenza Virus Vaccine Recomb Quad IM, Preserv and ABX Free 18-64 YRS Unknown Completed [facility] Influenza Virus Vaccine Unknown Completed [facility] Influenza Virus Vaccine Quad .5 mL IM 6+ MO (FLUZONE/FLULAVAL/F LUARIX) Unknown Completed [facility] TDAP (ADACEL) VACCINE Unknown Completed [facility] Influenza Virus Vaccine Recomb Quad IM, Preserv and ABX Free 18-64 YRS Unknown Completed [facility] Influenza Virus Vaccine Unknown Completed [facility] Influenza Virus Vaccine Quad .5 mL IM 6+ MO (FLUZONE/FLULAVAL/F LUARIX) Unknown Completed [facility] TDAP (ADACEL) VACCINE Unknown Completed [facility] Influenza Virus Vaccine Recomb Quad IM, Preserv and ABX Free 18-64 YRS Unknown Completed [facility] Influenza Virus Vaccine Unknown Completed [facility] Influenza Virus Vaccine Quad .5 mL IM 6+ MO (FLUZONE/FLULAVAL/F LUARIX) Unknown Completed [facility] TDAP (ADACEL) VACCINE Unknown Completed [facility] Influenza Virus Vaccine Recomb Quad IM, Preserv and ABX Free 18-64 YRS Unknown Completed [facility] Influenza Virus Vaccine Unknown Completed [facility] Influenza Virus Vaccine Quad .5 mL IM 6+ MO (FLUZONE/FLULAVAL/F LUARIX) Unknown Completed [facility] TDAP (ADACEL) VACCINE Unknown Completed [facility] Influenza Virus Vaccine Recomb Quad IM, Preserv and ABX Free 18-64 YRS Unknown Completed [facility] Influenza Virus Vaccine Unknown Completed [facility] Influenza Virus Vaccine Quad .5 mL IM 6+ MO (FLUZONE/FLULAVAL/F LUARIX) Unknown Completed [facility] TDAP (ADACEL) VACCINE Unknown Completed [facility] Influenza Virus Vaccine Recomb Quad IM, Preserv and ABX Free 18-64 YRS Unknown Completed [facility] Influenza Virus Vaccine Unknown Completed [facility] Influenza Virus Vaccine Quad .5 mL IM 6+ MO (FLUZONE/FLULAVAL/F LUARIX) Unknown Completed [facility] TDAP (ADACEL) VACCINE Unknown Completed [facility] Influenza Virus Vaccine Recomb Quad IM, Preserv and ABX Free 18-64 YRS Unknown Completed [facility] Influenza Virus Vaccine Unknown Completed [facility] Influenza Virus Vaccine Quad .5 mL IM 6+ MO (FLUZONE/FLULAVAL/F LUARIX) Unknown Completed [facility] TDAP (ADACEL) VACCINE Unknown Completed [facility] Influenza Virus Vaccine Recomb Quad IM, Preserv and ABX Free 18-64 YRS Unknown Completed [facility] Influenza Virus Vaccine Unknown Completed [facility] Influenza Virus Vaccine Quad .5 mL IM 6+ MO (FLUZONE/FLULAVAL/F LUARIX) Unknown Completed [facility] TDAP (ADACEL) VACCINE Unknown Completed [facility] Influenza Virus Vaccine Recomb Quad IM, Preserv and ABX Free 18-64 YRS Unknown Completed [facility] Influenza Virus Vaccine Unknown Completed [facility] Influenza Virus Vaccine Quad .5 mL IM 6+ MO (FLUZONE/FLULAVAL/F LUARIX) Unknown Completed [facility] TDAP (ADACEL) VACCINE Unknown Completed [facility] Influenza Virus Vaccine Quad .5 mL IM 6+ MO (FLUZONE/FLULAVAL/F LUARIX) Unknown Completed [facility] TDAP (ADACEL) VACCINE Unknown Completed [facility] Influenza Virus Vaccine Quad .5 mL IM 6+ MO (FLUZONE/FLULAVAL/F LUARIX) Unknown Completed [facility] TDAP (ADACEL) VACCINE Unknown Completed [facility] Influenza Virus Vaccine Quad .5 mL IM 6+ MO (FLUZONE/FLULAVAL/F LUARIX) Unknown Completed [facility] TDAP (ADACEL) VACCINE Unknown Completed [facility] Influenza Virus Vaccine Quad .5 mL IM 6+ MO (FLUZONE/FLULAVAL/F LUARIX) Unknown Completed [facility] TDAP (ADACEL) VACCINE Unknown Completed [facility] Influenza Virus Vaccine Quad .5 mL IM 6+ MO (FLUZONE/FLULAVAL/F LUARIX) Unknown Completed [facility] TDAP (ADACEL) VACCINE Unknown Completed [facility] Influenza Virus Vaccine Quad .5 mL IM 6+ MO (FLUZONE/FLULAVAL/F LUARIX) Unknown Completed [facility] TDAP (ADACEL) VACCINE Unknown Completed [facility] Influenza Virus Vaccine Quad .5 mL IM 6+ MO (FLUZONE/FLULAVAL/F LUARIX) Unknown Completed [facility] TDAP (ADACEL) VACCINE Unknown Completed [facility] Influenza Virus Vaccine Quad .5 mL IM 6+ MO (FLUZONE/FLULAVAL/F LUARIX) Unknown Completed [facility] TDAP (ADACEL) VACCINE Unknown Completed [facility] Influenza Virus Vaccine Quad .5 mL IM 6+ MO (FLUZONE/FLULAVAL/F LUARIX) Unknown Completed [facility] TDAP (ADACEL) VACCINE Unknown Completed [facility] Influenza Virus Vaccine Recomb Quad IM, Preserv and ABX Free 18-64 YRS Unknown Completed [facility] Influenza Virus Vaccine Unknown Completed [facility] Influenza Virus Vaccine Quad IM, Preserv and ABX Free 6 MO-64 YRS (FLUCELVAX) Unknown Completed [facility] Influenza Virus Vaccine Quad .5 mL IM 6+ MO (FLUZONE/FLULAVAL/F LUARIX) Unknown Completed [facility] TDAP (ADACEL) VACCINE Unknown Completed [facility] Influenza Virus Vaccine Recomb Quad IM, Preserv and ABX Free 18-64 YRS Unknown Completed [facility] Influenza Virus Vaccine Unknown Completed [facility] Influenza Virus Vaccine Quad IM, Preserv and ABX Free 6 MO-64 YRS (FLUCELVAX) Unknown Completed [facility] Influenza Virus Vaccine Quad .5 mL IM 6+ MO (FLUZONE/FLULAVAL/F LUARIX) Unknown Completed [facility] TDAP (ADACEL) VACCINE Unknown Completed [facility] Influenza Virus Vaccine Recomb Quad IM, Preserv and ABX Free 18-64 YRS Unknown Completed [facility] Influenza Virus Vaccine Unknown Completed [facility] Influenza Virus Vaccine Quad IM, Preserv and ABX Free 6 MO-64 YRS (FLUCELVAX) Unknown Completed [facility] Vital Signs Vital Name Observation Time Observation Value Comments S adeel Systolic blood pressure 2024-05-19 20:32:57 137 mm[Hg] [facility] Diastolic blood pressure 2024-05-19 20:32:57 88 mm[Hg] [facility] Heart rate 2024-05-19 20:32:57 118 /min [facility] Respiratory rate 2024-05-19 20:32:57 18 /min [facility] Oxygen saturation in Arterial blood by Pulse oximetry 2024-05-19 20:32:57 100 /min [facility] Body temperature 2024-05-19 18:41:00 36.39 Irene [facility] Body height 2024-05-19 18:41:00 154.9 cm [facility] Body weight 2024-05-19 18:41:00 52.164 kg [facility] BMI 2024-05-19 18:41:00 21.73 kg/m2 [facility] Systolic blood pressure 2024-04-19 15:51:38 123 mm[Hg] [facility] Diastolic blood pressure 2024-04-19 15:51:38 90 mm[Hg] [facility] Heart rate 2024-04-19 15:51:38 87 /min [facility] Body temperature 2024-04-19 15:51:38 36.78 Irene [facility] Respiratory rate 2024-04-19 15:51:38 14 /min [facility] Oxygen saturation in Arterial blood by Pulse oximetry 2024-04-19 15:51:38 100 /min [facility] Body height 2024-04-19 13:54:00 154.9 cm [facility] Body weight 2024-04-19 13:54:00 54.432 kg [facility] BMI 2024-04-19 13:54:00 22.67 kg/m2 [facility] Systolic blood pressure 2024-04-12 20:00:00 119 mm[Hg] [facility] Diastolic blood pressure 2024-04-12 20:00:00 80 mm[Hg] [facility] Heart rate 2024-04-12 20:00:00 88 /min [facility] Respiratory rate 2024-04-12 20:00:00 18 /min [facility] Oxygen saturation in Arterial blood by Pulse oximetry 2024-04-12 20:00:00 99 /min [facility] Body temperature 2024-04-12 19:00:00 36.67 Irene [facility] Body height 2024-04-12 17:57:10 154.9 cm [facility] Body weight 2024-04-12 17:57:10 54.432 kg [facility] BMI 2024-04-12 17:57:10 22.67 kg/m2 [facility] Systolic blood pressure 2024-04-12 16:25:00 124 mm[Hg] [facility] Diastolic blood pressure 2024-04-12 16:25:00 95 mm[Hg] [facility] Heart rate 2024-04-12 16:25:00 106 /min [facility] Body temperature 2024-04-12 16:25:00 37.17 Irene [facility] Respiratory rate 2024-04-12 16:25:00 18 /min [facility] Oxygen saturation in Arterial blood by Pulse oximetry 2024-04-12 16:25:00 100 /min [facility] Body height 2024-04-12 15:25:00 154.9 cm [facility] Body weight 2024-04-12 15:25:00 54.432 [facility] [facility] BMI 2024-04-12 15:25:00 22.67 kg/m2 [facility] Systolic blood pressure 2024-03-13 13:25:00 129 mm[Hg] [facility] Diastolic blood pressure 2024-03-13 13:25:00 87 mm[Hg] [facility] Heart rate 2024-03-13 13:25:00 116 /min [facility] Body temperature 2024-03-13 13:25:00 35.61 Irene [facility] Respiratory rate 2024-03-13 13:25:00 20 /min [facility] Oxygen saturation in Arterial blood by Pulse oximetry 2024-03-13 13:25:00 94 /min [facility] Body height 2024-03-10 14:43:00 154.9 cm [facility] Body weight 2024-03-10 14:43:00 44.453 kg [facility] BMI 2024-03-10 14:43:00 18.52 kg/m2 [facility] Systolic blood pressure 2024-03-05 16:10:00 142 mm[Hg] [facility] Diastolic blood pressure 2024-03-05 16:10:00 87 mm[Hg] [facility] Heart rate 2024-03-05 16:10:00 94 /min [facility] Body temperature 2024-03-05 16:10:00 37 Irene [facility] Respiratory rate 2024-03-05 16:10:00 16 /min [facility] Oxygen saturation in Arterial blood by Pulse oximetry 2024-03-05 16:10:00 100 /min [facility] Body height 2024-03-04 11:42:00 154.9 cm [facility] Body weight 2024-03-04 11:42:00 45.36 kg [facility] BMI 2024-03-04 11:42:00 18.89 kg/m2 [facility] Systolic blood pressure 2024-02-27 17:17:00 138 mm[Hg] [facility] Diastolic blood pressure 2024-02-27 17:17:00 91 mm[Hg] [facility] Heart rate 2024-02-27 17:17:00 97 /min [facility] Body temperature 2024-02-27 17:17:00 36.67 Irene [facility] Respiratory rate 2024-02-27 17:17:00 16 /min [facility] Oxygen saturation in Arterial blood by Pulse oximetry 2024-02-27 17:17:00 99 /min [facility] Body height 2024-02-27 13:16:00 154.9 cm [facility] Body weight 2024-02-27 13:16:00 45.36 kg [facility] BMI 2024-02-27 13:16:00 18.89 kg/m2 [facility] Systolic blood pressure 2024-02-27 15:50:00 122 mm[Hg] [facility] Diastolic blood pressure 2024-02-27 15:50:00 81 mm[Hg] [facility] Heart rate 2024-02-27 15:50:00 102 /min [facility] Respiratory rate 2024-02-27 15:50:00 13 /min [facility] Oxygen saturation in Arterial blood by Pulse oximetry 2024-02-27 15:50:00 98 /min [facility] Body temperature 2024-02-27 15:20:00 36 Irene [facility] Body height 2024-02-27 13:16:00 154.9 cm [facility] Body weight 2024-02-27 13:16:00 45.36 kg [facility] BMI 2024-02-27 13:16:00 18.89 kg/m2 [facility] Systolic blood pressure 2023-05-19 17:24:00 129 mm[Hg] [facility] Diastolic blood pressure 2023-05-19 17:24:00 83 mm[Hg] [facility] Heart rate 2023-05-19 17:24:00 77 /min [facility] Respiratory rate 2023-05-19 17:24:00 15 /min [facility] Oxygen saturation in Arterial blood by Pulse oximetry 2023-05-19 17:24:00 100 /min [facility] Body temperature 2023-05-19 14:50:00 37.28 Irene [facility] Body height 2023-05-19 14:50:00 154.9 cm [facility] Body weight 2023-05-19 14:50:00 58.968 kg [facility] BMI 2023-05-19 14:50:00 24.56 kg/m2 [facility] Systolic blood pressure 2023-01-15 16:56:00 132 mm[Hg] [facility] Diastolic blood pressure 2023-01-15 16:56:00 91 mm[Hg] [facility] Heart rate 2023-01-15 16:56:00 67 /min [facility] Body temperature 2023-01-15 16:56:00 36.78 Irene [facility] Respiratory rate 2023-01-15 16:56:00 20 /min [facility] Oxygen saturation in Arterial blood by Pulse oximetry 2023-01-15 16:56:00 100 /min [facility] Body height 2023-01-12 09:05:00 154.9 cm [facility] Body weight 2023-01-12 09:05:00 58.968 kg [facility] BMI 2023-01-12 09:05:00 24.56 kg/m2 [facility] Systolic blood pressure 2022-11-21 21:40:00 122 mm[Hg] [facility] Diastolic blood pressure 2022-11-21 21:40:00 90 mm[Hg] [facility] Heart rate 2022-11-21 21:40:00 92 /min [facility] Respiratory rate 2022-11-21 21:40:00 16 /min [facility] Oxygen saturation in Arterial blood by Pulse oximetry 2022-11-21 21:40:00 99 /min [facility] Body temperature 2022-11-21 18:07:00 37.28 Irene [facility] Body weight 2022-11-21 18:07:00 68.04 kg [facility] BMI 2022-11-21 18:07:00 28.34 kg/m2 [facility] Systolic blood pressure 2022-09-05 17:22:00 139 mm[Hg] [facility] Diastolic blood pressure 2022-09-05 17:22:00 91 mm[Hg] [facility] Heart rate 2022-09-05 17:22:00 120 /min [facility] Respiratory rate 2022-09-05 17:22:00 18 /min [facility] Oxygen saturation in Arterial blood by Pulse oximetry 2022-09-05 17:22:00 99 /min [facility] Body temperature 2022-09-05 13:43:00 37.11 Irene [facility] Body weight 2022-09-05 13:43:00 68.04 kg [facility] BMI 2022-09-05 13:43:00 28.34 kg/m2 [facility] Systolic blood pressure 2022-08-01 00:49:00 138 mm[Hg] [facility] Diastolic blood pressure 2022-08-01 00:49:00 104 mm[Hg] [facility] Heart rate 2022-08-01 00:49:00 108 /min [facility] Respiratory rate 2022-08-01 00:49:00 18 /min [facility] Oxygen saturation in Arterial blood by Pulse oximetry 2022-08-01 00:49:00 99 /min [facility] Body temperature 2022-07-31 22:52:00 37.11 Irene [facility] Body height 2022-07-31 22:52:00 154.9 cm [facility] Body weight 2022-07-31 22:52:00 68.04 kg [facility] BMI 2022-07-31 22:52:00 28.34 kg/m2 [facility] Systolic blood pressure 2022-07-15 15:32:00 130 mm[Hg] [facility] Diastolic blood pressure 2022-07-15 15:32:00 90 mm[Hg] [facility] Heart rate 2022-07-15 15:31:00 81 /min [facility] Body temperature 2022-07-15 15:31:00 36.94 Irene [facility] Respiratory rate 2022-07-15 15:31:00 16 /min [facility] Body weight 2022-07-15 15:31:00 68.493 kg [facility] BMI 2022-07-15 15:31:00 28.53 kg/m2 [facility] Oxygen saturation in Arterial blood by Pulse oximetry 2022-07-15 15:31:00 99 /min [facility] Systolic blood pressure 2022-06-23 15:26:00 111 mm[Hg] [facility] Diastolic blood pressure 2022-06-23 15:26:00 75 mm[Hg] [facility] Heart rate 2022-06-23 15:26:00 108 /min [facility] Body temperature 2022-06-23 15:26:00 36.83 Irene [facility] Respiratory rate 2022-06-23 15:26:00 18 /min [facility] Body height 2022-06-23 15:26:00 154.9 cm [facility] Body weight 2022-06-23 15:26:00 71.385 kg [facility] BMI 2022-06-23 15:26:00 29.74 kg/m2 [facility] Oxygen saturation in Arterial blood by Pulse oximetry 2022-06-23 15:26:00 99 /min [facility] Systolic blood pressure 2022-05-05 22:05:00 126 mm[Hg] [facility] Diastolic blood pressure 2022-05-05 22:05:00 75 mm[Hg] [facility] Heart rate 2022-05-05 22:05:00 99 /min [facility] Respiratory rate 2022-05-05 22:05:00 16 /min [facility] Oxygen saturation in Arterial blood by Pulse oximetry 2022-05-05 22:05:00 99 /min [facility] Body temperature 2022-05-05 18:24:00 37.11 Irene [facility] Body height 2022-05-05 18:24:00 154.9 cm [facility] Body weight 2022-05-05 18:24:00 54.432 kg [facility] BMI 2022-05-05 18:24:00 22.67 kg/m2 [facility] Systolic blood pressure 2022-04-26 14:28:00 135 mm[Hg] [facility] Diastolic blood pressure 2022-04-26 14:28:00 95 mm[Hg] [facility] Heart rate 2022-04-26 14:28:00 93 /min [facility] Body temperature 2022-04-26 14:28:00 36.89 Irene [facility] Respiratory rate 2022-04-26 14:28:00 18 /min [facility] Body height 2022-04-26 14:28:00 154.9 cm [facility] weight 2022-04-26 14:28:00 54.432 kg [facility] BMI 2022-04-26 14:28:00 22.67 kg/m2 [facility] Oxygen saturation in Arterial blood by Pulse oximetry 2022-04-26 14:28:00 100 /min [facility] Systolic blood pressure 2022-04-26 00:21:00 151 mm[Hg] [facility] Diastolic blood pressure 2022-04-26 00:21:00 98 mm[Hg] [facility] Heart rate 2022-04-26 00:21:00 98 /min [facility] Body temperature 2022-04-26 00:21:00 36.72 Irene [facility] Respiratory rate 2022-04-26 00:21:00 18 /min [facility] Body height 2022-04-26 00:21:00 154.9 cm [facility] Body weight 2022-04-26 00:21:00 54.432 kg [facility] BMI 2022-04-26 00:21:00 22.67 kg/m2 [facility] Oxygen saturation in Arterial blood by Pulse oximetry 2022-04-26 00:21:00 100 /min [facility] Systolic blood pressure 2022-04-09 14:39:00 122 mm[Hg] [facility] Diastolic blood pressure 2022-04-09 14:39:00 84 mm[Hg] [facility] Heart rate 2022-04-09 14:39:00 96 /min [facility] Body height 2022-04-09 14:39:00 154.9 cm [facility] Body weight 2022-04-09 14:39:00 60.328 kg [facility] BMI 2022-04-09 14:39:00 25.13 kg/m2 [facility] Oxygen saturation in Arterial blood by Pulse oximetry 2022-04-09 14:39:00 98 /min [facility] Systolic blood pressure 2022-04-07 22:43:36 131 mm[Hg] [facility] Diastolic blood pressure 2022-04-07 22:43:36 83 mm[Hg] [facility] Heart rate 2022-04-07 22:43:36 113 /min [facility] Respiratory rate 2022-04-07 22:43:36 18 /min [facility] Oxygen saturation in Arterial blood by Pulse oximetry 2022-04-07 22:43:36 97 /min [facility] Body temperature 2022-04-07 19:41:00 37.17 Irene [facility] Body height 2022-04-07 19:41:00 154.9 cm [facility] Body weight 2022-04-07 19:41:00 60.328 kg [facility] BMI 2022-04-07 19:41:00 25.13 kg/m2 [facility] Systolic blood pressure 2022-03-24 19:00:00 125 mm[Hg] [facility] Diastolic blood pressure 2022-03-24 19:00:00 86 mm[Hg] [facility] Heart rate 2022-03-24 19:00:00 93 /min [facility] Respiratory rate 2022-03-24 19:00:00 17 /min [facility] Oxygen saturation in Arterial blood by Pulse oximetry 2022-03-24 19:00:00 97 /min [facility] Body temperature 2022-03-24 13:33:00 36.78 Irene [facility] Systolic blood pressure 2022-03-15 19:23:00 128 mm[Hg] [facility] Diastolic blood pressure 2022-03-15 19:23:00 89 mm[Hg] [facility] Heart rate 2022-03-15 19:23:00 104 /min [facility] Body weight 2022-03-15 19:23:00 60.328 kg [facility] BMI 2022-03-15 19:23:00 25.13 kg/m2 [facility] Oxygen saturation in Arterial blood by Pulse oximetry 2022-03-15 19:23:00 98 /min [facility] Systolic blood pressure 2022-03-15 15:02:00 115 mm[Hg] [facility] Diastolic blood pressure 2022-03-15 15:02:00 70 mm[Hg] [facility] Heart rate 2022-03-15 15:02:00 85 /min [facility] Respiratory rate 2022-03-15 15:02:00 20 /min [facility] Oxygen saturation in Arterial blood by Pulse oximetry 2022-03-15 15:02:00 99 /min [facility] Body temperature 2022-03-15 13:38:00 36.94 Irene [facility] Body height 2022-03-15 13:38:00 154.9 cm [facility] Body weight 2022-03-15 13:38:00 54.432 kg [facility] BMI 2022-03-15 13:38:00 22.67 kg/m2 [facility] Systolic blood pressure 2022-03-11 16:30:00 124 mm[Hg] [facility] Diastolic blood pressure 2022-03-11 16:30:00 88 mm[Hg] [facility] Heart rate 2022-03-11 16:30:00 93 /min [facility] Body temperature 2022-03-11 16:30:00 36.67 Irene [facility] Respiratory rate 2022-03-11 16:30:00 14 /min [facility] Oxygen saturation in Arterial blood by Pulse oximetry 2022-03-11 16:30:00 100 /min [facility] Body height 2022-03-11 14:19:00 154.9 cm [facility] Body weight 2022-03-11 14:19:00 58.968 kg [facility] BMI 2022-03-11 14:19:00 24.56 kg/m2 [facility] Systolic blood pressure 2022-02-27 14:14:00 140 mm[Hg] [facility] Diastolic blood pressure 2022-02-27 14:14:00 90 mm[Hg] [facility] Heart rate 2022-02-27 14:14:00 103 /min [facility] Body height 2022-02-27 14:14:00 154.9 cm [facility] Body weight 2022-02-27 14:14:00 59.194 kg [facility] BMI 2022-02-27 14:14:00 24.66 kg/m2 [facility] Oxygen saturation in Arterial blood by Pulse oximetry 2022-02-27 14:14:00 100 /min [facility] Systolic blood pressure 2022-02-27 13:19:00 131 mm[Hg] [facility] Diastolic blood pressure 2022-02-27 13:19:00 86 mm[Hg] [facility] Heart rate 2022-02-27 13:19:00 102 /min [facility] Body temperature 2022-02-27 13:19:00 36.33 Irene [facility] Body height 2022-02-27 13:19:00 154.9 cm [facility] Body weight 2022-02-27 13:19:00 58.968 kg [facility] BMI 2022-02-27 13:19:00 24.56 kg/m2 [facility] Oxygen saturation in Arterial blood by Pulse oximetry 2022-02-27 13:19:00 99 /min [facility] Systolic blood pressure 2022-02-21 08:06:00 135 mm[Hg] [facility] Diastolic blood pressure 2022-02-21 08:06:00 97 mm[Hg] [facility] Heart rate 2022-02-21 08:06:00 98 /min [facility] Respiratory rate 2022-02-21 08:06:00 16 /min [facility] Oxygen saturation in Arterial blood by Pulse oximetry 2022-02-21 08:06:00 97 /min [facility] Body temperature 2022-02-21 06:16:00 36.94 Irene [facility] Body height 2022-02-21 06:16:00 154.9 cm [facility] Body weight 2022-02-21 06:16:00 60.963 kg [facility] BMI 2022-02-21 06:16:00 25.39 kg/m2 [facility] Systolic blood pressure 2022 20:08:00 136 mm[Hg] [facility] Diastolic blood pressure 2022 20:08:00 96 mm[Hg] [facility] Heart rate 2022 20:08:00 100 /min [facility] Respiratory rate 2022 20:08:00 20 /min [facility] Oxygen saturation in Arterial blood by Pulse oximetry 2022 20:08:00 98 /min [facility] Body temperature 2022 16:56:00 37.06 Irene [facility] Body weight 2022 16:56:00 54.432 kg [facility] BMI 2022 16:56:00 22.67 kg/m2 [facility] Systolic blood pressure 2022-02-05 14:31:00 128 mm[Hg] [facility] Diastolic blood pressure 2022-02-05 14:31:00 84 mm[Hg] [facility] Heart rate 2022-02-05 14:31:00 86 /min [facility] Body temperature 2022-02-05 14:31:00 37.89 Irene [facility] Respiratory rate 2022-02-05 14:31:00 18 /min [facility] Body height 2022-02-05 14:31:00 154.9 cm [facility] Body weight 2022-02-05 14:31:00 54.432 kg [facility] BMI 2022-02-05 14:31:00 22.67 kg/m2 [facility] Oxygen saturation in Arterial blood by Pulse oximetry 2022-02-05 14:31:00 98 /min [facility] Systolic blood pressure 2022-01-18 14:50:00 144 mm[Hg] [facility] Diastolic blood pressure 2022-01-18 14:50:00 92 mm[Hg] [facility] Heart rate 2022-01-18 14:50:00 94 /min [facility] Respiratory rate 2022-01-18 14:50:00 20 /min [facility] Oxygen saturation in Arterial blood by Pulse oximetry 2022-01-18 14:50:00 99 /min [facility] Body weight 2022-01-18 10:18:00 54.432 kg [facility] BMI 2022-01-18 10:18:00 22.67 kg/m2 [facility] Body temperature 2022-01-18 10:15:00 36.72 Irene [facility] Systolic blood pressure 2022-01-15 15:48:26 125 mm[Hg] [facility] Diastolic blood pressure 2022-01-15 15:48:26 85 mm[Hg] [facility] Heart rate 2022-01-15 15:48:26 95 /min [facility] Respiratory rate 2022-01-15 15:48:26 18 /min [facility] Oxygen saturation in Arterial blood by Pulse oximetry 2022-01-15 15:48:26 98 /min [facility] Body temperature 2022-01-15 13:32:00 37.11 Irene [facility] Body height 2022-01-15 13:32:00 154.9 cm [facility] Body weight 2022-01-15 13:32:00 54.432 kg [facility] BMI 2022-01-15 13:32:00 22.67 kg/m2 [facility] Systolic blood pressure 2022-01-09 00:37:11 127 mm[Hg] [facility] Diastolic blood pressure 2022-01-09 00:37:11 90 mm[Hg] [facility] Heart rate 2022-01-09 00:37:11 94 /min [facility] Body temperature 2022-01-09 00:37:11 37.11 Irene [facility] Respiratory rate 2022-01-09 00:37:11 16 /min [facility] Oxygen saturation in Arterial blood by Pulse oximetry 2022-01-09 00:37:11 97 /min [facility] Body height 2022-01-08 23:03:00 154.9 cm [facility] Body weight 2022-01-08 23:03:00 58.06 kg [facility] BMI 2022-01-08 23:03:00 24.19 kg/m2 [facility] Systolic blood pressure 2021-12-12 18:00:00 126 mm[Hg] [facility] Diastolic blood pressure 2021-12-12 18:00:00 87 mm[Hg] [facility] Heart rate 2021-12-12 18:00:00 86 /min [facility] Body temperature 2021-12-12 18:00:00 36.89 Irene [facility] Respiratory rate 2021-12-12 18:00:00 18 /min [facility] Body height 2021-12-12 18:00:00 154.9 cm [facility] Body weight 2021-12-12 18:00:00 57.153 kg [facility] BMI 2021-12-12 18:00:00 23.81 kg/m2 [facility] Systolic blood pressure 2023-01-14 16:32:00 138 mm[Hg] [facility] Diastolic blood pressure 2023-01-14 16:32:00 84 mm[Hg] [facility] Heart rate 2023-01-14 16:32:00 67 /min [facility] Body temperature 2023-01-14 16:32:00 36.5 Irene [facility] Respiratory rate 2023-01-14 16:32:00 16 /min [facility] Oxygen saturation in Arterial blood by Pulse oximetry 2023-01-14 16:32:00 99 /min [facility] Body height 2023-01-12 09:05:00 154.9 cm [facility] Body weight 2023-01-12 09:05:00 58.968 kg [facility] BMI 2023-01-12 09:05:00 24.56 kg/m2 [facility] Procedures Procedure Date / Time Performed Performing Clinician Source POCT TEST 2024-05-19 20:10:00 Anamaria Gonzales [facility] 2024-05-19 [facility][id number][facility]24-05-19 [facility]24-05-19 [facility]24-05-19 19:53:00 Christian [facility] CT ABDOMEN PELVIS WO CONTRAST 2024-04-19 14:51:33 Rosendo Levy [facility] POCT TEST 2024-04-19 14:21:00 Rosendo Levy [facility] LIPASE 2024-04-19 14:18:00 Rosendo Levy [facility] COMP. METABOLIC PANEL ([id number]) 2024-04-19 14:18:00 Rosendo Levy [facility] CBC WITH DIFF 2024-04-19 14:18:00 Rosendo Levy [facility] URINALYSIS 2024-04-19 14:18:00 Rosendo Levy [facility] XR ANKLE <3 VW LEFT 2024-04-12 18:36:00 Neeta Ureña [facility] XR FOOT <3 VW LEFT 2024-04-12 18:36:00 Niranjan Neeta [facility] XR TIBIA FIBULA 2 VW LEFT 2024-04-12 18:36:00 Neeta Ureña [facility] CT TRAUMA HEAD WO CONTRAST 2024-04-12 18:27:49 Neeta Ureña [facility] CT TRAUMA CERVICAL SPINE WO CONTRAST 2024-04-12 18:27:49 Neeta Ureña [facility] CT TRAUMA THORACIC SPINE WO CONTRAST 2024-04-12 18:27:49 Neeta Ureña [facility] CT TRAUMA LUMBAR SPINE WO CONTRAST 04-12 18:27:49 Neeta Ureña [facility] XR CHEST 1 VW 2024-04-12 15:50:27 Maggie Hamilton [facility] COMP. METABOLIC PANEL ([id number]) 2024-04-12 15:43:00 Maggie Hamilton [facility] CBC WITH DIFF 2024-04-12 15:43:00 Maggie Hamilton [facility] HB ABO GROUPING 2024-04-12 15:43:00 Maggie Hamilton [facility] ER FAST ULTRASOUND 2024-04-12 15:36:51 Maggie Hamilton [facility] MAGNESIUM 2024-03-13 10:20:00 Ellis Burgess [facility] BASIC METABOLIC PANEL (NA, K , CL, CO2, GLUCOSE, BUN, CREATININE, CA) 2024-03-13 10:20:00 Ellis Burgess [facility] CBC WITH DIFF 2024-03-13 10:20:00 Ellis Burgess [facility] FECAL PATHOGENS BY PCR 2024-03-12 17:51:00 [facility] CLOSTRIDIUM DIFFICILE TOXIN 2024-03-12 17:50:00 [facility] LAB ONLY C. DIFFICILE TOXIN B GENE (TCDB) BY PCR 2024-03-12 17:50:00 [facility] SUPERIOR MESENTERIC ARTERY D UPLEX - BY VASCULAR LAB 2024-03-12 14:06:02 Edilia Crewsnifer [facility] MAGNESIUM 2024-03-12 [facility]:14[facility] (NA, K , CL, CO2, GLUCOSE, BUN, CREATININE, CA) 2024-03-12 11:14:00 [facility] CBC WITHOUT DIFF 2024-03-12 [facility]:14[facility]24-03-11 10:47[facility]00 [facility] (NA, K , CL, CO2, GLUCOSE, BUN, CREATININE, CA) 2024-03-11 10:47:00 Kitty [facility] CBC WITH DIFF 2024-03-11 10:47:00 Kitty [facility] CT ABDOMEN PELVIS WO CONTRAST 2024-03-10 19:46:10 Venkat [facility] LIPASE 2024-03-10 15:42:00 Venkat [facility] TEST, SERUM 2024-03-10 15:42:00 Fidel [facility] COMP. METABOLIC PANEL (50957) 2024-03-10 15:42:00 Venkat [facility] URINE DRUG (IMMUNOASSAY) - COMPREHENSIVE DRUG SCREEN 2024-03-10 15:42:00 Kitty [facility] CBC WITH DIFF 2024-03-10 15:42:00 Venkat [facility] URINALYSIS 2024-03-10 15:42:00 Venkat [facility] EXTRA TUBE DK. GREEN 2024-03-10 15:42:00 Fidel [facility] CT ABDOMEN PELVIS WO CONTRAST 2024-03-04 13:43:16 Alexander Richard [facility] POCT TEST 2024-03-04 13:14:00 Alexander Richard [facility] LIPASE 2024-03-04 13:13:00 Alexander Rcihard [facility] COMP. METABOLIC PANEL (38783) 2024-03-04 13:13:00 Alexander Richard [facility] CBC WITH DIFF 2024-03-04 13:13:00 Alexander Richard [facility] URINALYSIS 2024-03-04 13:13:00 Alexander Richard [facility] ENDOSCOPY PROCEDURE DOCUMENTATION 2023-05 0-18 14:46:53 Doctor Unassigned, Mucarabones [facility] FLEXIBLE SIGMOIDOSCOPY (ENDO) 2024-02-27 15:42:37 Hany Lee [facility] FLEXIBLE SIGMOIDOSCOPY (ENDO) 2024-02-27 15:42:37 Hany Lee [facility] EGD (ENDO) 2024-02-27 15:39:44 Hany Lee [facility] EGD (ENDO) 2024-02-27 15:39:44 Hany Lee [facility] ESOPHAGOGASTRODUODENOSCOPY 2024-02-27 14:11:00 Jas Buenrostro [facility] FLEXIBLE SIGMOIDOSCOPY 2024-02-27 14:11:00 Jas Buenrostro [facility] MAGNESIUM 2024-02-27 09:37:00 Jose Carlos Urbina [facility] HEPATIC FUNCTION PANEL (8007 6) (ALB,T.PRO,BILI T,BU/BC,ALT,AST,ALK PHOS) 2024-02-27 09:37:00 Jose Carlos Urbina [facility] BASIC METABOLIC PANEL (NA, K , CL, CO2, GLUCOSE, BUN, CREATININE, CA) 2024-02-27 09:37:00 Jose Carlos Urbina [facility] CBC WITH DIFF 2024-02-27 09:37:00 Jose Carlos Urbina [facility] MAGNESIUM 2024-02-27 09:37:00 Jose Carlos Urbina [facility] HEPATIC FUNCTION PANEL (8007 6) (ALB,T.PRO,BILI T,BU/BC,ALT,AST,ALK PHOS) 2024-02-27 09:37:00 Jose Carlos Urbina [facility] BASIC METABOLIC PANEL (NA, K , CL, CO2, GLUCOSE, BUN, CREATININE, CA) 2024-02-27 09:37:00 Jose Carlos Urbina [facility] CBC WITH DIFF 2024-02-27 09:37:00 Jose Carlos Urbina [facility] CALPROTECTIN, FECAL 2024-02-26 22:49:00 Jose Carlos Urbina [facility] CALPROTECTIN, FECAL 2024-02-26 22:49:00 Jose Carlos Urbina [facility] XR KUB 2024-02-26 20:00:00 Jose Carlos Urbina [facility] XR KUB 2024-02-26 20:00:00 Jose Carlos Urbina [facility] MAGNESIUM 2024-02-26 16:17:00 Chitra [facility] HEPATIC FUNCTION PANEL (8007 6) (ALB,T.PRO,BILI T,BU/BC,ALT,AST,ALK PHOS) 2024-02-26 16:17:00 Chitra [facility] BASIC METABOLIC PANEL (NA, K , CL, CO2, GLUCOSE, BUN, CREATININE, CA) 2024-02-26 16:17:00 Chitra [facility] PROTHROMBIN TIME / INR 2024-02-26 16:17:00 Chitra [facility] MAGNESIUM 2024-02-26 16:17:00 Chitra [facility] HEPATIC FUNCTION PANEL (8007 6) (ALB,T.PRO,BILI T,BU/BC,ALT,AST,ALK PHOS) 2024-02-26 16:17:00 Chitra [facility] BASIC METABOLIC PANEL (NA, K , CL, CO2, GLUCOSE, BUN, CREATININE, CA) 2024-02-26 16:17:00 Chitra [facility] PROTHROMBIN TIME / INR 2024-02-26 16:17:00 Chitra [facility] MR ABDOMEN W WO CONTRAST MRCP 2024-02-25 17:15:21 Chitra [facility] MR ABDOMEN W WO CONTRAST MRCP 2024-02-25 17:15:21 Chitra [facility] CREATINE KINASE 2024-02-25 10:52:00 Chitra [facility] HEPATIC FUNCTION PANEL (8007 6) (ALB,T.PRO,BILI T,BU/BC,ALT,AST,ALK PHOS) 2024-02-25 10:52:00 Jose Carlos Urbina [facility] BASIC METABOLIC PANEL (NA, K , CL, CO2, GLUCOSE, BUN, CREATININE, CA) 2024-02-25 10:52:00 Jose Carlos Urbina [facility] CREATINE KINASE 2024-02-25 10:52:00 Chitra [facility] HEPATIC FUNCTION PANEL (8007 6) (ALB,T.PRO,BILI T,BU/BC,ALT,AST,ALK PHOS) 2024-02-25 10:52:00 Jose Carlos Urbina [facility] BASIC METABOLIC PANEL (NA, K , CL, CO2, GLUCOSE, BUN, CREATININE, CA) 2024-02-25 10:52:00 Jose Carlos Urbina [facility] MAGNESIUM 2024-02-24 09:54:00 Naty Buenrostro [facility] HEPATIC FUNCTION PANEL (8007 6) (ALB,T.PRO,BILI T,BU/BC,ALT,AST,ALK PHOS) 2024-02-24 09:54:00 Jose Carlos Urbina [facility] BASIC METABOLIC PANEL (NA, K , CL, CO2, GLUCOSE, BUN, CREATININE, CA) 2024-02-24 09:54:00 Jose Carlos Urbina [facility] CBC WITH DIFF 2024-02-24 09:54:00 Naty Buenrostro [facility] MAGNESIUM 2024-02-24 09:54:00 [facility] (8007 6) (ALB,T.PRO,BILI T,BU/BC,ALT,AST,ALK PHOS) 2024-02-24 09:54:00 Jose Carlos Urbina [facility] BASIC METABOLIC PANEL (NA, K , CL, CO2, GLUCOSE, BUN, CREATININE, CA) 2024-02-24 09:54:00 Jose Carlos Urbina [facility] CBC WITH DIFF 2024-02-24 09:54:00 Naty Buenrostro [facility] POCT GLUCOSE (AUTOMATED) 2024-02-24 01:34:00 Hany Lee [facility] POCT GLUCOSE (AUTOMATED) 2024-02-24 01:34:00 Hany Lee [facility] HEPATIC FUNCTION PANEL (8007 6) (ALB,T.PRO,BILI T,BU/BC,ALT,AST,ALK PHOS) 2024-02-23 17:51:00 Chitra [facility] CBC WITH DIFF 2024-02-23 17:51:00 Chitra [facility] HAV ANTIBODY (IGG AND IGM) 2024-02-23 17:51:00 Chitra [facility] ENDOMYSIAL AB, IGA BY IFA 2024-02-23 17:51:00 Chitra [facility] VITAMIN D, 25-OH 2024-02-23 17:51:00 Chitra [facility] HEPATIC FUNCTION PANEL (8007 6) (ALB,T.PRO,BILI T,BU/BC,ALT,AST,ALK PHOS) 2024-02-23 17:51:00 Chitra [facility] CBC WITH DIFF 2024-02-23 17:51:00 Chitra [facility] HAV ANTIBODY (IGG AND IGM) 2024-02-23 17:51:00 Chitra [facility] ENDOMYSIAL AB, IGA BY IFA 2024-02-23 17:51:00 Chitra [facility] VITAMIN D, 25-OH 2024-02-23 17:51:00 Chitra [facility] INFLUENZA A/B RSV COVID NAAT 2024-02-22 20:12:00 Chitra [facility] LAB ONLY COVID INTERPRETATION 2024-02-22 20:12:00 Chitra [facility] INFLUENZA A/B RSV COVID NAAT 2024-02-22 20:12:00 Chitra [facility] LAB ONLY COVID INTERPRETATION 2024-02-22 20:12:00 Chitra [facility] XR CHEST 2 VW 2024-02-22 17:16:00 Radford, Adriana [facility] XR CHEST 2 VW 2024-02-22 17:16:00 Radford, Adriana [facility] US ABDOMEN LIMITED 2024-02-22 16:59:52 Radford, Adriana [facility] US ABDOMEN LIMITED 2024-02-22 16:59:52 [facility] 15:19:00 [facility] TEST, SERUM 2024-02-22 15:19:00 Stephanie Lou [facility] C-REACTIVE PROTEIN 2024-02-22 15:19:00 Chitra [facility] TROPONIN I 2024-02-22 15:19:00 Stephanie Lou [facility] HEPATIC FUNCTION PANEL (8007 6) (ALB,T.PRO,BILI T,BU/BC,ALT,AST,ALK PHOS) 2024-02-22 15:19:00 [facility]. METABOLIC PANEL (11078) 2024-02-22 15:19:00 Stephanie Lou [facility] URINE DRUG (IMMUNOASSAY) - COMPREHENSIVE DRUG SCREEN 2024-02-22 15:19:00 Chitra [facility] SEDIMENTATION RATE 2024-02-22 15:19:00 Chitra [facility] CBC WITH DIFF 2024-02-22 15:19:00 Stephanie Lou [facility] URINALYSIS 2024-02-22 15:19:00 Stephanie Lou [facility] HEPATITIS B SURFACE ANTIBODY 2024-02-22 15:19:00 Chitra [facility] HEPATITIS B SURFACE ANTIGEN 2024-02-22 15:19:00 Chitra [facility] HCV ANTIBODY 2024-02-22 15:19:00 Chitra [facility] HBC ANTIBODY (IGM & IGG) 2024-02-22 15:19:00 Chitra [facility] HIV 1/2 AG-AB WITH REFLEX 2024-02-22 15:19:00 Chitra [facility] DEAMIDATED GLIADIN IGG 2024-02-22 15:19:00 Chitra [facility] LIPASE 2024-02-22 15:19:00 Stephanie Lou [facility] TEST, SERUM 2024-02-22 15:19:00 Stephanie Lou [facility] C-REACTIVE PROTEIN 2024-02-22 15:19:00 [facility] 2024-02-22 15:19:00 Colin Jones [facility] HEPATIC FUNCTION PANEL (8007 6) (ALB,T.PRO,BILI T,BU/BC,ALT,AST,ALK PHOS) 2024-02-22 15:19:00 [facility]. METABOLIC PANEL (21618) 2024-02-22 15:19:00 Colin Jones [facility] URINE DRUG (IMMUNOASSAY) - COMPREHENSIVE DRUG SCREEN 2024-02-22 15:19:00 Chitra [facility] SEDIMENTATION RATE 2024-02-22 15:19:00 Chitra [facility] CBC WITH DIFF 2024-02-22 15:19:00 Stephanie Lou [facility] URINALYSIS 2024-02-22 15:19:00 Stephanie Lou [facility] HEPATITIS B SURFACE ANTIBODY 2024-02-22 15:19:00 Chitra [facility] HEPATITIS B SURFACE ANTIGEN 2024-02-22 15:19:00 Chitra [facility] HCV ANTIBODY 2024-02-22 15:19:00 Chitra [facility] HBC ANTIBODY (IGM & IGG) 2024-02-22 15:19:00 Chitra [facility] HIV 1/2 AG-AB WITH REFLEX 2024-02-22 15:19:00 Chitra [facility] DEAMIDATED GLIADIN IGG 2024-02-22 15:19:00 Chitra [facility] COMP. METABOLIC PANEL (73213) 2023-05-19 17:22:00 Verito [facility] CT ABDOMEN PELVIS W CONTRAST 2023-05-19 15:59:54 Verito [facility] LIPASE 2023-05-19 15:43:00 Verito [facility] CBC WITH DIFF 2023-05-19 15:43:00 Tod Aguilar [facility] URINALYSIS 2023-05-19 15:32:00 Tod Aguilar [facility] POCT TEST 2023-05-19 15:31:00 Tod Aguilar [facility] CONSENT/REFUSAL FOR DIAGNOSI S AND TREATMENT 2023-05-19 14:37:15 Doctor Unassigned, Mucarabones [facility] PHOSPHORUS 2023-01-15 08:15:00 Benita Rockwell [facility] MAGNESIUM 2023-01-15 08:15:00 Benita Rockwell [facility] BASIC METABOLIC PANEL (NA, K , CL, CO2, GLUCOSE, BUN, CREATININE, CA) 2023-01-15 08:15:00 [facility] 2023-01-15 08:15:00 Moiz Benita [facility] PROTHROMBIN TIME / INR 2023-01-15 08:15:00 Benita Rockwell [facility] MAGNESIUM 2023-01-14 10:14:00 Benita Rockwell [facility] PHOSPHORUS 2023-01-14 10:14:00 Moiz Benita [facility] BASIC METABOLIC PANEL (NA, K , CL, CO2, GLUCOSE, BUN, CREATININE, CA) 2023-01-14 10:14:00 Benita Rockwell [facility] CBC WITH DIFF 2023-01-14 10:14:00 Benita Rockwell [facility] PHOSPHORUS 2023-01-14 10:14:00 Benita Rockwell [facility] MAGNESIUM 2023-01-14 10:14:00 Benita Rockwell [facility] BASIC METABOLIC PANEL (NA, K , CL, CO2, GLUCOSE, BUN, CREATININE, CA) 2023-01-14 10:14:00 Benita Rockwell [facility] CBC WITH DIFF 2023-01-14 10:14:00 Benita Rockwell [facility] CBC WITH DIFF 2023-01-13 10:45:00 Vaishnavi, [facility] BASIC METABOLIC PANEL (NA, K , CL, CO2, GLUCOSE, BUN, CREATININE, CA) 2023-01-13 10:45:00 Vaishnavi, [facility] MAGNESIUM 2023-01-13 10:45:00 Vaishnavi, [facility] PHOSPHORUS 2023-01-13 10:45:00 Vaishnavi, [facility] HEPATIC FUNCTION PANEL (8007 6) (ALB,T.PRO,BILI T,BU/BC,ALT,AST,ALK PHOS) 2023-01-13 10:45:00 Vaishnavi, [facility] PHOSPHORUS 2023-01-13 10:45:00 Vaishnavi, [facility] MAGNESIUM 2023-01-13 10:45:00 Vaishnavi, [facility] HEPATIC FUNCTION PANEL (8007 6) (ALB,T.PRO,BILI T,BU/BC,ALT,AST,ALK PHOS) 2023-01-13 10:45:00 Vaishnavi, [facility] BASIC METABOLIC PANEL (NA, K , CL, CO2, GLUCOSE, BUN, CREATININE, CA) 2023-01-13 10:45:00 Vaishnavi, [facility] CBC WITH DIFF 2023-01-13 10:45:00 Vaishnavi, [facility] GLUCOSE BODY FLUID 2023-01-12 20:44:00 Vaishnavi, [facility] BODY FLUID MANUAL DIFF 2023-01-12 20:44:00 Vaishnavi, [facility] T.PROTEIN BODY FLUID 2023-01-12 20:44:00 Vaishnavi, [facility] ASPIRATE OR ABSCESS CULTURE(AEROBIC/ANAEROBIC) 2023-01-12 20:44:00 Vaishnavi, [facility] LDH TOTAL BODY FLUID 2023-01-12 20:44:00 Vaishnavi, [facility] GLUCOSE BODY FLUID 2023-01-12 20:44:00 Vaishnavi, [facility] T.PROTEIN BODY FLUID 2023-01-12 20:44:00 Vaishnavi, [facility] BODY FLUID DIRECT COUNT 2023-01-12 20:44:00 Vaishnavi, [facility] ASPIRATE OR ABSCESS CULTURE(AEROBIC/ANAEROBIC) 2023-01-12 20:44:00 Vaishnavi, [facility] LDH TOTAL BODY FLUID 2023-01-12 20:44:00 Vaishnavi, [facility] PROTHROMBIN TIME / INR 2023-01-12 08:13:00 Vaishnavi, [facility] PROTHROMBIN TIME / INR 2023-01-12 08:13:00 Vaishnavi, [facility] COMP. METABOLIC PANEL ([id number]) 2023-01-12 03:49:00 Zehra García [facility] COMP. METABOLIC PANEL ([id number]) 2023-01-12 03:49:00 Zehra García [facility] CT ABDOMEN PELVIS W CONTRAST 2023-01-12 03:32:06 Zehra García [facility] CT ABDOMEN PELVIS W CONTRAST 2023-01-12 03:32:06 Zehra García [facility] POCT TEST 2023-01-12 03:02:00 Zehra García [facility] POCT TEST 2023-01-12 03:02:00 Zehra García [facility] URINALYSIS 2023-01-12 02:56:00 Zehra García Joana [facility] LIPASE 2023-01-12 02:56:00 Zehra García [facility] TOTAL BETA HCG ASSAY 2023-01-12 02:56:00 Zehra García [facility] CBC WITH DIFF 2023-01-12 02:56:00 Zehra García [facility] EXTRA TUBE ORANGE 2023-01-12 02:56:00 Artur [facility] EXTRA TUBE LAV 2023-01-12 02:56:00 [facility]-12 02:56:00 Zehra García Joana [facility] TOTAL BETA HCG ASSAY 2023-01-12 02:56:00 Zehra García [facility] CBC WITH DIFF 2023-01-12 02:56:00 Zehra García [facility] URINALYSIS 2023-01-12 02:56:00 Zehra García [facility] EXTRA TUBE LAV 2023-01-12 02:56:00 Miguel Ángel Siddiqui [facility] EXTRA TUBE ORANGE 2023-01-12 02:56:00 Miguel Ángel Siddiqui [facility] CONSENT/REFUSAL FOR DIAGNOSI S AND TREATMENT 2023-01-12 01:46:10 Doctor Unassigned, Mucarabones [facility] CONSENT/REFUSAL FOR DIAGNOSI S AND TREATMENT 2023-01-12 01:46:10 Doctor Unassigned, Mucarabones [facility] ASSIGNMENT OF BENEFITS 2022-11-21 19:49:02 Doctor Unassigned, Mucarabones [facility] ASSIGNMENT OF BENEFITS 2022-11-21 19:49:02 Doctor Unassigned, Mucarabones [facility] CONSENT/REFUSAL FOR DIAGNOSI S AND TREATMENT 2022-11-21 18:03:25 Doctor Unassigned, Mucarabones [facility] CONSENT/REFUSAL FOR DIAGNOSI S AND TREATMENT 2022-11-21 18:03:25 Doctor Unassigned, Mucarabones [facility] EMERGENCY SERVICES AGREEMENT S AND AUTHORIZATIONS 2022-11-21 05:01:00 Doctor Unassigned, Mucarabones [facility] CONSENT/REFUSAL FOR DIAGNOSI S AND TREATMENT 2022-09-05 13:42:02 Doctor Unassigned, Mucarabones [facility] LIPASE 2022-07-31 23:13:00 Blane [facility] TEST, SERUM 2022-07-31 23:13:00 Blane [facility] COMP. METABOLIC PANEL (70417) 2022-07-31 23:13:00 Blane [facility] CBC WITH DIFF 2022-07-31 23:13:00 Blane [facility] CONSENT/REFUSAL FOR DIAGNOSI S AND TREATMENT 2022-07-31 22:49:17 Doctor Unassigned, Mucarabones [facility] XR ANKLE 3+ VW RIGHT 2022-07-15 16:00:00 Leanne, Beba Farmer [facility] XR FOOT 3+ VW RIGHT 2022-07-15 16:00:00 Leanne Beba Farmer [facility] XR FOOT 3+ VW RIGHT 2022-07-15 16:00:00 Leanne Beba Farmer [facility] PATIENT FINANCIAL POLICY 2022-07-15 15:25:53 Doctor Unassigned, Mucarabones [facility] POCT MOLECULAR STREP 2022-06-23 16:06:00 Unknown, Attending [facility] ASSIGNMENT OF BENEFITS 2022-06-23 15:18:28 Doctor Unassigned, Mucarabones [facility] COMP. METABOLIC PANEL ([id number]) 2022-05-05 [facility]:14[facility] 2022-05-05 19:14:00 Errol [facility] POCT TEST 2022-05-05 19:00:00 [facility] 2022-05-05 18:58:00 Errol [facility] CT ABDOMEN PELVIS WO CONTRAST 2022-04-26 15:11:00 [facility] METABOLIC PANEL ([id number]) 2022-04-26 14:49:00 [facility]FF 2022-04-26 14:49:00 Singer [facility] URINALYSIS 2022-04-26 14:49:00 [facility] 2022-04-26 14:45:00 Singer [facility] CONSENT/REFUSAL FOR DIAGNOSI S AND TREATMENT 2022-04-26 14:22:29 Doctor Unassigned, Mucarabones [facility] POCT TEST 2022-04-26 01:22:00 Oc Bridges [facility] ASSIGNMENT OF BENEFITS 2022-04-26 00:54:02 Doctor Unassigned, Mucarabones [facility] URINALYSIS 2022-04-26 00:45:00 [facility] FOR [facility]AGNOSI S AND TREATMENT 2022-04-26 00:16:47 Doctor Unassigned, Mucarabones [facility] BASIC METABOLIC PANEL (NA, K , CL, CO2, GLUCOSE, BUN, CREATININE, CA) 2022-04-07 22:35:00 Olamide Garvin [facility] CBC WITH DIFF 2022-04-07 22:35:00 Olamide Garvin [facility] URINALYSIS 2022-04-07 21:36:00 Olamide Garvin [facility] URINE DRUG (IMMUNOASSAY) - COMPREHENSIVE DRUG SCREEN W/O REFLEX 2022-04-07 21:36:00 Olamide Garvin [facility] CONSENT/REFUSAL FOR DIAGNOSI S AND TREATMENT 2022-04-07 19:29:15 Doctor Unassigned, Mucarabones [facility] POCT TEST 2022-03-24 14:07:00 Kellie Piper [facility] CONSENT/REFUSAL FOR DIAGNOSI S AND TREATMENT 2022-03-24 13:27:20 Doctor Unassigned, Mucarabones [facility] CT ABDOMEN PELVIS WO CONTRAST 2022-03-15 14:09:04 Lydia Colmenares [facility] URINALYSIS 2022-03-15 13:53:00 Lydia Colmenares [facility] POCT TEST 2022-03-15 13:52:00 Lydia Colmenares [facility] CONSENT/REFUSAL FOR DIAGNOSI S AND TREATMENT 2022-03-15 13:37:02 Doctor Unassigned, Mucarabones [facility] POCT TEST 2022-03-11 14:59:00 Angelica Viveros [facility] FLU VACC (), 6 MO-6 4 YRS, .5ML, IM, QUAD (FLUCELVAX) 2022-02-27 13:34:55 Ca Martinez [facility] NOTICE OF PRIVACY PRACTICES 2022-02-21 06:06:30 Doctor Unassigned, Mucarabones [facility] CONSENT/REFUSAL FOR DIAGNOSI S AND TREATMENT 2022-02-21 06:03:41 Doctor Unassigned, Mucarabones [facility] XR ANKLE <3 VW RIGHT 2022 17:56:42 Maggie Hamilton [facility] CT ABDOMEN PELVIS W CONTRAST 2022 17:44:17 Maggie Hamilton [facility] CT TRAUMA CERVICAL SPINE WO CONTRAST 2022 17:43:49 Maggie Hamilton [facility] POCT TEST 2022 17:27:00 Maggie Hamilton [facility] COMP. METABOLIC PANEL ([id number]) 2022 17:17:00 Maggie Hamilton [facility] CBC WITH DIFF 2022 17:17:00 Maggie Hamilton [facility] CONSENT/REFUSAL FOR DIAGNOSI S AND TREATMENT 2022 16:53:13 Doctor Unassigned, Mucarabones [facility] GALL BLADDER 2022-01-18 12:31:09 Rosendo Levy [facility] US PELVIS COMPLETE WITH TRANSVAGINAL 2022-01-18 12:21:13 Melvin Zhao [facility] CT ABDOMEN PELVIS W CONTRAST 2022-01-18 11:20:50 Melvin Zhao [facility] POCT TEST 2022-01-18 10:57:00 Juan Kennedy [facility] COVID-19 (ID NOW RAPID TESTING) 10:57:00 Juan Kennedy [facility] URINALYSIS 2022-01-18 10:47:00 Juan Kennedy [facility] LIPASE 2022-01-18 10:29:00 Juan Kennedy [facility] TEST, SERUM 2022-01-18 10:29:00 Juan Kennedy [facility] HEPATIC FUNCTION PANEL (8007 6) (ALB,T.PRO,BILI T,BU/BC,ALT,AST,ALK PHOS) 2022-01-18 10:29:00 Juan Kennedy [facility] BASIC METABOLIC PANEL (NA, K , CL, CO2, GLUCOSE, BUN, CREATININE, CA) 2022-01-18 10:29:00 Juan Kennedy [facility] CBC WITH DIFF 2022-01-18 10:29:00 Juan Kennedy [facility] CONSENT/REFUSAL FOR DIAGNOSI S AND TREATMENT 2022-01-18 10:13:31 Doctor Unassigned, Mucarabones [facility] CT HEAD WO CONTRAST 2022-01-15 15:22:29 Maura Cox [facility] TEST, SERUM 2022-01-15 14:36:00 Maura Cox [facility] BASIC METABOLIC PANEL (NA, K , CL, CO2, GLUCOSE, BUN, CREATININE, CA) 2022-01-15 14:36:00 Maura Cox [facility] CBC WITH DIFF 2022-01-15 14:36:00 Maura Cox [facility] CONSENT/REFUSAL FOR DIAGNOSI S AND TREATMENT 2022-01-15 13:28:12 Doctor Unassigned, Mucarabones [facility] XR CERVICAL SPINE 4 VW 2022-01-09 00:29:16 Humberto Ochoa [facility] XR LUMBAR SPINE 4 VW 2022-01-09 00:29:[address] [facility] XR SPINE THORACIC 3 VW 2022-01-09 00:29:16 Humberto Ochoa [facility] URINALYSIS 2022-01-08 23:50:00 Humberto Ochoa [facility] CONSENT/REFUSAL FOR DIAGNOSI S AND TREATMENT 2022-01-08 22:51:08 Doctor Unassigned, Mucarabones [facility] GALV ONLY - VAGINAL PATHOGEN S BY NUCLEIC ACID TESTING 2021-12-12 18:37:00 Prasanna Vargas [facility] URINE CULTURE 2021-12-12 18:32:00 Prasanna Vargas [facility] POCT TEST 2021-12-12 18:31:00 Prasanna Vargas [facility] POCT URINALYSIS W/O SPECIFIC GRAVITY 2021-12-12 18:31:00 Prasanna Vargas [facility] Encounters Start Date/Time End Date/Time Encounter Type Admission Type Attending [facility] Care Facility Care Department Encounter ID Source 2021-03-14 03:14:[address] [facility] [id number] [facility] 2021-03-13 20:05:[address] [facility] [id number] [facility] 2021-03-13 12:48:28 [place] [facility] [place] [id number] [facility] 2021-03-13 02:43:51 [place] [facility] [place] [id number] [facility] 2021-03-13 00:27:09 Emergency [facility] [place] [id number] [facility] 2021-03-12 22:10:36 [place] [facility] [place] [id number] [facility] [facility] 2021-03-12 20:04:05 [place] [facility] [place] [id number] [facility] 2021-03-12 15:25:05 [place] [facility] [place] [id number] [facility] 2021-03-12 11:43:36 Emergency [facility] [id number] [facility] 2021-03-12 07:41:37 Emergency [facility] [id number] [facility] 2021-03-12 05:43:47 [place] [facility] [place] [id number] [facility] 2021-03-12 03:43:41 [place] [facility] [place] [id number] [facility] 2021-03-12 01:31:27 [facility] [id number] [facility] 2021-03-12 00:56:44 Emergency X [facility] [id number] [facility] 2021-03-12 00:56:31 [place] [facility] [place] [id number] [facility] 2021-03-11 17:47:02 [place] [id number] [facility] 2021-03-11 16:27:15 Emergency [facility] [id number] [facility] 2021-03-11 12:00:58 [place] [id number] [facility] 2021-03-11 10:33:59 Emergency [facility] [id number] [facility] 2021-03-11 01:36:52 [facility] [id number] [facility] 2021-03-10 23:35:[address] [facility] [id number] [facility] 2021-03-10 19:06:[address] [facility] [id number] [facility] 2021-03-10 12:39:[address] [facility] [id number] [facility] 2021-03-10 06:54:[address] [facility] [id number] [facility] 2021-03-09 13:25:44 Outpatient [facility] [id number] [facility] 2021-03-09 13:08:01 Outpatient P [facility] [id number] [facility] 2021-03-09 12:37:25 Outpatient P [facility] [id number] [facility] 2021-03-09 11:51:20 Outpatient P [facility] [id number] [facility] 2024-07-27 17:21:07 2024-07-27 17:21:07 Outpatient [facility] [id number] [facility] Gil 2024-02-28 00:00:00 2024-06-27 06:46:51 Orders Only Doctor Unassigned, Mucarabones Doctor Unassigned, Mucarabones [facility] ([place] 1.840.114 350.1.13.10 4.2.7.2.686 [id number] [facility] 2022-08-27 00:00:00 2024-06-27 02:42:04 Orders Only Marrufo, Palak Marrufo, [facility] MEDICAL OFFICE BUILDING 1.840.114 350.1.13.10 4.2.7.2.686 [id number] [facility] 2022-08-28 00:00:00 2024-06-27 02:42:02 Orders Only Marrufo, Palak Marrufo, [facility] MEDICAL OFFICE BUILDING 1.84.114 350.1.13.10 4.2.7.2.686 [id number] [facility] 2022-08-29 00:00:00 2024-06-27 02:41:59 Orders Only Marrufo, Palak Marrufo, Pal[facility] MEDICAL OFFICE BUILDING 1.2.840.114 350.1.13.10 4.2.7.2.686 [id number] [facility] 2022-09-24 00:00:00 2024-06-27 02:41:25 Orders Only Marrufo, Palak Marrufo, Palak [facility] MEDICAL OFFICE BUILDING 1.2.840.114 350.1.13.10 4.2.7.2.686 [id number] [facility] 2022-09-27 00:00:00 2024-06-27 02:41:19 Orders Only Marrufo, Palak Marrufo, Palak [facility] MEDICAL OFFICE BUILDING 1.2.840.114 350.1.13.10 4.2.7.2.686 [id number] [facility] 2022-10-02 00:00:00 2024-06-27 02:41:14 Orders Only Marrufo, Palak Marrufo, Palak [facility] MEDICAL OFFICE BUILDING 1.2.840.114 350.1.13.10 4.2.7.2.686 [id number] [id number] [facility] 2022-11-15 00:00:00 2024-06-27 02:40:23 Orders Only Marrufo, Palak Marrufo, Palak [facility] MEDICAL OFFICE BUILDING 1.2.840.114 350.1.13.10 4.2.7.2.686 [id number] [id number] [facility] 2024-05-19 12:49:00 2024-05-19 16:37:00 Emergency X ANAMARIA GONZALES DONNELL [facility] ERT [id number] [facility] 2024-05-19 12:49:00 2024-05-19 16:37:00 Emergency Anamaria Gonzales [facility] 1.2.840.114 350.1.13.10 4.2.7.2.686 [id number] [facility] 2024-04-19 07:55:00 2024-04-19 09:58:00 Emergency X ROSENDO LEVY BRENT [facility] ERT [id number] [facility] 2024-04-19 07:55:00 2024-04-19 09:58:00 Emergency ArtemioRosendo ferro [facility] 1.2840.114 350.1.13.10 4.2.7.2.686 [id number] [id number] [facility] 2024-03-18 00:00:00 2024-04-18 18:19:35 Patient Secure Msg Doctor Unassigned, Mucarabones Doctor Unassigned, Mucarabones [facility] ([place] 1.2840.114 350.1.13.10 4.2.7.2.686 [id number] [facility] 2024-04-12 11:54:00 2024-04-12 14:39:00 Emergency T ARAM PARADA [facility] STR [id number] [facility] 2024-04-12 11:54:00 2024-04-12 14:39:00 Emergency Aram Parada [facility] ([place]) 1.20.114 350.1.13.10 4.2.7.2.686 [id number] [facility] 2024-04-12 09:23:00 2024-04-12 10:42:00 Emergency X MAGGIE HAMILTON SANDRA [facility] ERT [id number] [facility] 2024-04-12 09:23:00 2024-04-12 10:42:00 Emergency Onesimo, Maggie Herbert [facility] 1.2840.114 350.1.13.10 4.2.7.2.686 [id number] [facility] 2024-03-10 09:43:00 2024-03-13 10:40:00 Inpatient X TAJ DE PAZ MICHAEL [facility] [id number] [facility] 2024-03-10 09:43:00 2024-03-13 10:40:00 Hospital Encounter Fidel, Alfredo Manuel, Jose Mao, Taj Milner [facility] ([facility] 1.2840.114 350.1.13.10 4.2.7.2.686 [id number] [facility] 2024-03-06 00:00:00 2024-03-06 08:40:48 Transition of Care Marlys Odell, Marlys MELO 1.20.114 350.1.13.10 4.2.7.2.686 [id number] [facility] 2024-03-04 06:46:00 2024-03-05 16:30:00 Outpatient X JOSE MANDUJANO MYRNA [facility] [id number] [facility] 2024-03-04 06:46:00 2024-03-05 16:30:00 Emergency Jesus Muñoz Myrna [facility] ([facility]) 1.20.114 350.1.13.10 4.2.7.2.686 [id number] [facility] 2024-03-03 00:00:00 2024-03-04 15:45:46 Patient Secure Jas Piedra [facility] ([facility] 1.2840.114 350.1.13.10 4.2.7.2.686 [id number] [facility] 2024-03-03 00:00:00 2024-03-03 12:14:14 Telephone Giselle Vance [facility] ([place]) 1.2.840.114 350.1.13.10 4.2.7.2.686 [id number] [facility] 2024-02-28 00:00:00 2024-02-28 09:08:41 Transition of Care Tc Renteria Michele A SHEARN MOODY BALDEVZA 1.2.840.114 350.1.13.10 4.2.7.2.686 [id number] [facility] 2024-02-22 09:35:00 2024-02-27 16:59:00 Inpatient X HANY LEE [facility] NATTY [id number] [facility] 2024-02-22 09:35:00 2024-02-27 16:59:00 Hospital Encounter Stephanie Lou, Hany Quiroz [facility] ([place]) 1.2.840.114 350.1.13.10 4.2.7.2.686 [id number] [facility] 2024-02-27 09:40:00 2024-02-27 10:51:00 Surgery Jas Buenrostro [facility] 1.2.840.114 350.1.13.10 4.2.7.2.686 [id number] [facility] 2024-02-27 09:22:00 2024-02-27 10:26:00 Anesthesia Event Peter Reece [facility] 1.2.840.114 350.1.13.10 4.2.7.2.686 [id number] [facility] 2024-02-24 00:00:00 2024-02-24 09:18:09 Telephone BuenrostroNaty [facility] 1..840.114 350.1.13.10 4.2.7.2.686 [id number] [facility] 2023-12-23 15:39:53 2023-12-23 15:39:53 Outpatient [facility] [id number] Willis Gil 2023-12-08 14:51:46 2023-12-08 14:51:46 Outpatient [facility] [id number] Willis Gil 2023-09-12 00:00:00 2023-09-12 00:00:00 Outpatient R ROLDAN WALKER [facility] [id number] [facility] 2023-08-26 00:00:00 2023-08-26 00:00:00 Transition of Care Marlys Odell [place] 1..840.114 350.1.13.10 4.2.7.2.686 [id number] [facility] 2023-08-23 08:31:00 2023-08-24 13:25:00 Outpatient X CHARANPanda ROLDAN [facility] [id number] [facility] 2023-08-04 14:56:23 2023-08-04 14:56:23 Outpatient [facility] [id number] Willis Gil 2023-06-27 14:47:45 2023-06-27 14:47:45 Outpatient [facility] [id number] Willis Gil 2023-05-19 09:04:00 2023-05-19 12:20:00 Emergency X TOD AGUILAR [facility] ERT [id number] [facility] 2023-05-19 09:04:00 2023-05-19 12:20:00 Emergency Tod Aguilar [facility] 1..840.114 350.1.13.10 4.2.7.2.686 [id number] [facility] 2023-04-05 00:00:00 2023-04-05 00:00:00 Patient Secure Prasanna Kang [facility] LULU ESCUDEROIO [facility] 1.2.840.114 350.1.13.10 4.2.7.2.686 [id number] [facility] 2023-02-14 12:59:23 2023-02-14 12:59:23 Outpatient [facility] [id number] Willis Gil 2023-02-06 18:19:02 2023-02-06 18:19:02 Outpatient [facility] [id number] Willis Gil 2023-01-30 00:00:00 2023-01-30 00:00:[address] ERICKSON_R [facility] [id number] 2023-01-16 00:00:00 2023-01-16 00:00:00 Transition of Care Marlys Odell [place] 1.2.840.114 350.1.13.10 4.2.7.2.686 [id number] [facility] 2023-01-11 21:06:00 2023-01-15 16:00:00 Hospital Encounter Miguel Ángel Siddiqui, Kun Beltran [facility] 1.2840.114 350.1.13.10 4.2.7.2.686 [id number] [facility] 2023-01-11 21:06:00 2023-01-15 16:00:00 Inpatient X KUN STEELE [facility] DAVID [id number] [facility] 2023-01-12 00:00:00 2023-01-12 00:00:00 Travel 1.2.840.1 13749.1.1 3.104.2.7 .3.241376 .8 1.2.840.114 350.1.13.10 4.2.7.3.698 084.8 [id number] [facility] 2023-01-11 00:00:00 2023-01-11 00:00:00 Travel 1.2.840.1 47464.1.1 3.104.2.7 .3.220283 .8 1.2.840.114 350.1.13.10 4.2.7.3.698 084.8 [id number] [facility] 2022-12-28 00:00:00 2022-12-28 00:00:[address]_R [facility] [id number] 2022-12-14 18:37:13 2022-12-14 18:37:13 Outpatient [facility] [id number] Willis Gil 2022-12-13 00:00:00 2022-12-13 00:00:00 [address] ER[address]_R [facility] [id number] 2022-12-12 09:30:00 2022-12-12 09:30:[address] [facility] [id number] [facility] 2022-11-21 13:08:00 2022-11-21 16:45:00 Emergency MANJU BARRAGAN [facility] ERT [id number] [facility] 2022-11-21 13:08:00 2022-11-21 16:45:00 Emergency Oc Bridges Christopher 1.2.840.1 98097.1.1 3.104.2.7 .3.980459 .8 [id number] [facility] 2022-11-21 00:00:00 2022-11-21 00:00:00 Travel 1.2.840.1 19955.1.1 3.104.2.7 .3.726880 .8 1.2.840.114 350.1.13.10 4.2.7.3.698 [id number] [facility] 2022-11-18 10:08:00 2022-11-18 10:08:00 Outpatient [facility] [id number] Willis Gil 2022-11-15 09:40:00 2022-11-15 09:40:00 Outpatient R JEREMY GREENE [facility] [id number] [facility] 2022-11-09 15:26:18 2022-11-09 15:26:18 Outpatient [facility] [id number] Willis Gil 2022-11-06 13:00:00 2022-11-06 13:00:[address] [facility] [id number] [facility] 2022-10-29 00:00:00 2022-10-29 00:00:00 Patient Secure Msg Jeremy Greene 1.2.840.1 45000.1.1 3.104.2.7 .3.731140 .8 [id number] [facility] 2022-10-29 00:00:00 2022-10-29 00:00:00 Patient Secure Msg Khang Prasanna Oneal 1.2.840.1 42323.1.1 3.104.2.7 .3.445988 .8 [id number] [facility] 2022-10-03 00:00:00 2022-10-03 00:00:00 Letter (Out) Roldan Walker [facility] MEDICAL OFFICE BUILDING 1.2.840.114 350.1.13.10 4.2.7.2.686 [id number] [facility] 2022-10-02 10:00:00 2022-10-02 10:00:[address] [facility] [id number] [facility] 2022-10-01 09:40:00 2022-10-01 09:40:[address] [facility] [id number] [facility] 2022-09-25 00:00:00 2022-09-25 00:00:00 Telephone Rad Serra [facility] NAL BUILDING 1.2.840.114 350.1.13.10 4.2.7.2.686 [id number] [facility] 2022-09-21 09:30:00 2022-09-21 09:30:00 [facility] [id number] [facility] 2022-09-21 00:00:00 2022-09-21 00:00:00 Letter (Out) Lexy [facility] TALYA?[facility] OFFICE BUILDING 1.2.840.114 350.1.13.10 4.2.7.2.686 [id number] [facility] 2022-09-21 00:00:00 2022-09-21 00:00:00 Telephone Lexy [facility] TALYA[facility] OFF[facility] 1.2.840.114 350.1.13.10 4.2.7.2.686 [id number] [facility] 2022-09-21 00:00:00 2022-09-21 00:00:00 Telephone Lexy [facility] TALYA?[facility] MEDICAL OFFICE BUILDING 1.2.840.114 350.1.13.10 4.2.7.2.686 [id number] [facility] 2022-09-14 09:30:00 2022-09-14 09:30:00 Out[facility] [id number] [facility] 2022-09-12 00:00:00 2022-09-12 00:00:00 Telephone Lexy [facility] TALYA[facility] MEDICAL OFFICE BUILDING 1.2.840.114 350.1.13.10 4.2.7.2.686 [id number] [facility] 2022-09-07 11:30:00 2022-09-07 11:30:00 Outpatient R KASSANDRA PUGH [facility] [id number] [facility] 2022-09-05 08:44:00 2022-09-05 13:15:00 Emergency X KENNEDY HUTCHINS [facility] ERT [id number] [facility] 2022-09-05 08:44:00 2022-09-05 13:15:00 Emergency LisetKennedy lopez [facility] 1..840.114 350.1.13.10 4.2.7.2.686 [id number] [facility] 2022-09-04 00:00:00 2022-09-04 00:00:00 Telephone Lonny Pughssica [facility] MED[facility] OFF[facility] BU[facility] 1..840.114 350.1.13.10 4.2.7.2.686 [id number] [facility] 2022-09-04 00:00:00 2022-09-04 00:00:00 Patient Secure Msg Rad Serra [facility] PROFESSIO NAL BUILDING 1..840.114 350.1.13.10 4.2.7.2.686 [id number] [facility] 2022-08-29 09:00:00 2022-08-29 09:00:00 Outpatient R DESIREE FINNEY [facility] [id number] [facility] 2022-08-14 00:00:00 2022-08-14 00:00:00 Patient Secure Msg Doctor Unassigned, Mucarabones [facility] MEDICAL OFFICE BUILDING 1.2.840.114 350.1.13.10 4.2.7.2.686 [id number] [facility] 2022-07-31 17:56:00 2022-07-31 20:30:00 Emergency X MANJU ARGUELLES [facility] ERT [id number] [facility] 2022-07-31 17:56:00 2022-07-31 20:30:00 Emergency Manju Arguelles [facility] 1.2840.114 350.1.13.10 4.2.7.2.686 [id number] [facility] 2022-07-15 09:46:45 2022-07-15 23:59:00 Outpatient R BEBA KAUR [facility] [id number] [facility] 2022-07-15 09:46:45 2022-07-15 23:59:00 Hospital Encounter Beba Kaur [facility] MEDICAL OFFICE BUILDING 1.20.114 350.1.13.10 4.2.7.2.686 [id number] [facility] 2022-07-15 09:46:45 2022-07-15 23:59:00 Hospital Encounter Beba Kaur [facility] MEDICAL OFFICE BUILDING 1.20.114 350.1.13.10 4.2.7.2.686 [id number] [facility] 2022-07-15 09:20:00 2022-07-15 10:29:17 Urgent Care Beba Kaur Unknown, Attending [facility] MEDICAL OFFICE BUILDING 1.2840.114 350.1.13.10 4.2.7.2.686 [id number] [facility] 2022-07-15 00:00:00 2022-07-15 00:00:00 Orders Only Doctor Unassigned, Mucarabones [facility] 1.2840.114 350.1.13.10 4.2.7.2.686 [id number] [facility] 2022-06-23 09:20:00 2022-06-23 10:27:39 Outpatient R PAUL SAMAYOA [facility] [id number] [facility] 2022-06-23 09:20:00 2022-06-23 10:27:39 Urgent Care Paul Samayoa Unknown, Attending [facility] 1.840.114 350.1.13.10 4.2.7.2.686 [id number] [facility] 2022-06-23 00:00:00 2022-06-23 00:00:00 Orders Only Doctor Unassigned, Mucarabones [facility] 1.840.114 350.1.13.10 4.2.7.2.686 [id number] [facility] 2022-06-15 09:40:00 2022-06-15 09:40:00 Outpatient R JEREMY GREENE [facility] [id number] [facility] 2022-05-29 08:00:00 2022-05-29 08:00:[address] [facility] [id number] [facility] 2022-05-15 09:20:00 2022-05-15 09:20:00 Outpatient R BENNETT MILLER [facility] [id number] [facility] 2022-05-11 09:30:00 2022-05-11 09:30:[address] [facility] [id number] [facility] 2022-05-05 12:26:00 2022-05-05 16:11:00 Emergency X KARON NORTON [facility] ERT [id number] [facility] 2022-05-05 12:26:00 2022-05-05 16:11:00 Emergency Karon Norton [facility] 1.840.114 350.1.13.10 4.2.7.2.686 [id number] [facility] 2022-05-01 00:00:00 2022-05-01 00:00:00 Outpatient R PRASANNA VARGAS VIEN [facility] [id number] [facility] 2022-04-26 08:30:00 2022-04-26 09:59:00 Emergency X OC BRIDGES [facility] ERT [id number] [facility] 2022-04-26 08:30:00 2022-04-26 09:59:00 Emergency Oc Bridges [facility] 1.840.114 350.1.13.10 4.2.7.2.686 [id number] [facility] 2022-04-25 18:23:00 2022-04-25 21:55:00 Emergency X KENNEDY HUTCHINS [facility] ERT [id number] [facility] 2022-04-25 18:23:00 2022-04-25 21:55:00 Emergency Kennedy Hutchins [facility] 1.840.114 350.1.13.10 4.2.7.2.686 [id number] [facility] 2022-04-19 10:00:00 2022-04-19 10:00:[address] [facility] [id number] [facility] 2022-04-12 00:00:00 2022-04-12 00:00:00 Telephone Kassandra Pugh [facility]KARLOSaKssandra [facility] 1.840.114 350.1.13.10 4.2.7.2.686 [id number] [facility] 2022-04-11 00:00:00 2022-04-11 00:00:00 Telephone Darrion Armstrong [facility] 1.84.114 350.1.13.10 4.2.7.2.686 [id number] [facility] 2022-04-10 00:00:00 2022-04-10 00:00:00 [facility] 1.20.114 350.1.13.10 4.2.7.2.686 [id number] [facility] 2022-04-09 09:30:00 2022-04-09 09:30:00 [facility] 1..114 350.1.13.10 4.2.7.2.686 [id number] [facility] 2022-04-09 09:30:00 2022-04-09 09:21:44 Outpatient R [facility] [id number] [facility] 2022-04-07 13:41:00 2022-04-07 17:49:00 Emergency X OLAMIDE [facility] ERT [id number] [facility] 2022-04-07 13:41:00 2022-04-07 17:49:00 Emergency Olamide Garvin G [facility] 1.0.114 350.1.13.10 4.2.7.2.686 [id number] [facility] 2022-04-07 00:00:00 2022-04-07 00:00:00 Patient Secure Msg Doctor Unassigned, Mucarabones [facility] 1..114 350.1.13.10 4.2.7.2.686 [id number] [facility] 2022-04-04 00:00:00 2022-04-04 00:00:00 Telephone Lexy [facility] TALYA?[facility] 1..114 350.1.13.10 4.2.7.2.686 [id number] [facility] 2022-04-02 10:30:00 2022-04-02 10:30:00 Outpatient Farzana KASSANDRA PUGH [facility] [id number] [facility] 2022-03-28 00:00:00 2022-03-28 00:00:00 Patient Secure Msg Doctor Unassigned, Mucarabones [facility] OFF[facility]ILD[facility] 1.840.114 350.1.13.10 4.2.7.2.686 [id number] [facility] 2022-03-24 07:35:00 2022-03-24 13:11:00 Emergency X KELLIE PIPER [facility] [id number] [facility] 2022-03-24 07:35:00 2022-03-24 13:11:00 Emergency Kellie Piper [facility] 1.840.114 350.1.13.10 4.2.7.2.686 [id number] [facility] 2022-03-23 10:30:00 2022-03-23 10:30:00 Outpatient Farzana PUGH KASSANDRA [facility] [id number] [facility] 2022-03-23 00:00:00 2022-03-23 00:00:00 Telephone Patti Darrion [facility] 1.840.114 350.1.13.10 4.2.7.2.686 [id number] [facility] [facility] 00:00:00 2022-03-22 00:00:00 [facility] MED[facility] OFF[facility] BUILDING 1..840.114 350.1.13.10 4.2.7.2.686 [id number] [facility] 2022-03-22 00:00:00 2022-03-22 00:00:00 [facility] 1.2.840.114 350.1.13.10 4.2.7.2.686 [id number] [facility] 2022-03-21 00:00:00 2022-03-21 00:00:00 Darrion Hernandez [facility] TALYA?[facility] 1.2.840.114 350.1.13.10 4.2.7.2.686 [id number] [facility] 2022-03-15 14:00:00 2022-03-15 14:36:19 [id number] 2022-03-15 14:00:00 2022-03-15 14:36:19 Office [facility] 1.2.840.114 350.1.13.10 4.2.7.2.686 [id number] [facility] 2022-03-15 08:40:00 2022-03-15 10:47:00 Emergency X LYDIA COLMENARES [facility] ERT [id number] [facility] 2022-03-15 08:40:00 2022-03-15 10:47:00 Emergency Lydia Colmenares [facility] 1..840.114 350.1.13.10 4.2.7.2.686 [id number] [facility] 2022-03-14 10:30:00 2022-03-14 10:30:00 Outpatient R PRASANNA VARGAS [facility] [id number] [facility] 2022-03-11 09:22:00 2022-03-11 12:15:00 Emergency X ANGELICA VIVEROS [facility] ERT [id number] [facility] 2022-03-11 09:22:00 2022-03-11 12:15:00 Emergency Angelica Viveros [facility] 1.284.114 350.1.13.10 4.2.7.2.686 [id number] [facility] 2022-03-06 08:30:00 2022-03-06 08:30:[address] [facility] [id number] [facility] 2022-03-02 00:00:00 2022-03-02 00:00:00 Telephone Darrion Armstrong [facility] 1.284.114 350.1.13.10 4.2.7.2.686 [id number] [facility] 2022-02-28 00:00:00 2022-02-28 00:00:00 Patient Secure Msg Doctor Unassigned, Mucarabones [facility] 1.84.114 350.1.13.10 4.2.7.2.686 [id number] [facility] 2022-02-27 09:30:00 2022-02-27 09:49:[address] [facility] [id number] [facility] 2022-02-27 09:30:00 2022-02-27 09:49:42 Office Visit Lonny Pughssica [facility] TALYA?[facility] 1.2840.114 350.1.13.10 4.2.7.2.686 [id number] [facility] 2022-02-27 08:00:00 2022-02-27 09:12:17 Office Visit Ca Martinez [facility] TALYA?[facility] 1.284.114 350.1.13.10 4.2.7.2.686 [id number] [facility] 2022-02-26 11:30:00 2022-02-26 11:30:00 Outpatient R KASSANDRA PUGH [facility] [id number] [facility] 2022-02-21 01:20:00 2022-02-21 03:44:00 Emergency X MAGGIE HAMILTON [facility] ERT [id number] [facility] 2022-02-21 01:20:00 2022-02-21 03:44:00 Emergency Maggie Hamilton [facility] 1.2840.114 350.1.13.10 4.2.7.2.686 [id number] [facility] 2022-02-19 00:00:00 2022-02-19 00:00:00 Patient Secure Msg Kendal Zamudio [facility] MEDICAL OFFICE BUILDING 1.2840.114 350.1.13.10 4.2.7.2.686 [id number] [facility] 2022-02-19 00:00:00 2022-02-19 00:00:00 Patient Secure Msg Kendal Zamudio [facility] MEDICAL OFFICE BUILDING 1.2.840.114 350.1.13.10 4.2.7.2.686 [id number] [facility] 2022-02-19 00:00:00 2022-02-19 00:00:00 Patient Secure Msg Santiago Valencia [facility] [place] 1.2.840.114 350.1.13.10 4.2.7.2.686 [id number] [facility] 2022-02-19 00:00:00 2022-02-19 00:00:00 Patient Secure Msg Ross Salazar [facility] 1.2.840.114 350.1.13.10 4.2.7.2.686 [id number] [facility] 2022 11:58:00 2022 15:13:00 Emergency X MAGGIE HAMILTON [facility] ERT [id number] [facility] 2022 11:58:00 2022 15:13:00 Emergency Maggie Hamilton [facility] 1..840.114 350.1.13.10 4.2.7.2.686 [id number] [facility] 2022-02-09 09:00:00 2022-02-09 09:00:[address] [facility] [id number] [facility] 2022-02-06 10:00:00 2022-02-06 10:00:[address] [facility] [id number] [facility] 2022-02-05 09:45:00 2022-02-05 10:05:00 Nurse Visit Nurse, Filippo [facility] 1..840.114 350.1.13.10 4.2.7.2.686 [id number] [facility] 2022-02-05 09:20:00 2022-02-05 09:20:[address] [facility] [id number] [facility] 2022-01-26 00:00:00 2022-01-26 00:00:00 Case Management Prasanna Vargas [facility] PROFESSIO NAL BUILDING 1..840.114 350.1.13.10 4.2.7.2.686 [id number] [facility] 2022-01-22 11:00:00 2022-01-22 11:00:[address] [facility] [id number] [facility] 2022-01-19 00:00:00 2022-01-19 00:00:00 Patient Secure Msg Doctor Unassigned, Mucarabones [facility] 1..840.114 350.1.13.10 4.2.7.2.686 [id number] [facility] 2022-01-18 05:17:00 2022-01-18 10:25:00 Emergency X ROSENDO LEVY [facility] ERT [id number] [facility] 2022-01-18 05:17:00 2022-01-18 10:25:00 Emergency Juan Kennedy [facility] 1..840.114 350.1.13.10 4.2.7.2.686 [id number] [facility] 2022-01-15 08:34:00 2022-01-15 10:49:00 Emergency MAURA DALE [facility] ERT [id number] [facility] 2022-01-15 08:34:00 2022-01-15 10:49:00 Emergency Larry Perez Robert Lee [facility] 1..840.114 350.1.13.10 4.2.7.2.686 [id number] [facility] 2022-01-08 18:04:00 2022-01-08 20:09:00 Emergency X HUMBERTO OCHOA [facility] ERT [id number] [facility] 2022-01-08 18:04:00 2022-01-08 20:09:00 Emergency Humberto Ochoa [facility] 1..840.114 350.1.13.10 4.2.7.2.686 [id number] [facility] 2021-12-12 13:30:00 2021-12-12 13:40:[address] [facility] [id number] [facility] 2021-12-12 13:30:00 2021-12-12 13:40:21 Office Visit Prasanna Vargas Nancy [facility] PROFESSIO [facility] .840.114 350.1.13.10 4.2.7.2.686 [id number] [facility] 2021-12-12 13:30:00 2021-12-12 13:40:21 Outpatient R DEYVI [facility] [id number] [facility] 2021-12-12 13:30:00 2021-12-12 13:40:21 Outpatient Farzana CARNES [facility] [id number] [facility] 2021-12-11 16:15:00 2021-12-11 16:15:00 Outpatient R SANTIAGO [facility] [id number] [facility] 2021-12-05 14:15:00 2021-12-05 14:15:[address] [facility] [id number] [facility] 2021-11-28 08:49:00 2021-11-28 11:02:00 Emergency X ERROL KARON [facility] ERT [id number] [facility] 2021-11-28 08:49:00 2021-11-28 11:02:00 Emergency Errol Karon [facility] .840.114 350.1.13.10 4.2.7.2.686 [id number] [facility] 2021-11-28 00:00:00 2021-11-28 00:00:00 Patient Secure MsCricket Harrison [facility] ..840.114 350.1.13.10 4.2.7.2.686 [id number] [facility] 2021-11-24 18:14:00 2021-11-24 21:04:00 Emergency X Kaycee MÉNDEZ [facility] ERT [id number] [facility] 2021-11-24 18:14:00 2021-11-24 21:04:00 Emergency Kaycee Méndez [facility] 1.2.840.114 350.1.13.10 4.2.7.2.686 [id number] [facility] 2021-11-24 00:00:00 2021-11-24 00:00:00 Telephone Cricket Taylor [facility] 1.2840.114 350.1.13.10 4.2.7.2.686 [id number] [facility] 2021-11-20 00:00:00 2021-11-20 00:00:00 Patient Secure Msg ZamudioJillianKendal M [facility]?KARLOSKassandra [facility] MED[facility] OFF[facility] BUILD[facility] 1.2840.114 350.1.13.10 4.2.7.2.686 [id number] [facility] 2021-11-19 00:00:00 2021-11-19 00:00:00 Letter (Out) Leslie Santacruz [facility] 1.2840.114 350.1.13.10 4.2.7.2.686 [id number] [facility] 2021-11-18 10:41:40 2021-11-18 23:59:00 Outpatient R NOELLE BOYDTANY [facility] [id number] [facility] 2021-11-18 10:41:40 2021-11-18 23:59:00 Hospital Encounter Noelle Boydtany [facility]?KARLOSKassandra [facility] MEDICAL OFFICE BUILDING 1.2840.114 350.1.13.10 4.2.7.2.686 [id number] [facility] 2021-11-18 10:20:00 2021-11-18 10:53:20 [facility] MEDICAL OFFICE BUILDING 1.84114 350.1.13.10 4.2.7.2.686 [id number] [facility] 2021-11-09 10:30:00 2021-11-09 10:30:[address] [facility] [id number] [facility] 2021-10-25 13:20:00 2021-10-25 13:20:00 [facility]gent [facility] MEDICAL OFFICE BUILDING 1.84.114 350.1.13.10 4.2.7.2.686 [id number] [facility] 2021-10-25 13:20:00 2021-10-25 12:47:[address] [facility] [id number] [facility] 2021-10-25 00:00:00 2021-10-25 00:00:00 Patient Secure Msg Ca Martinez [facility] TALYA?[facility] MEDICAL OFFICE BUILDING 1.84114 350.1.13.10 4.2.7.2.686 [id number] [facility] 2021-10-25 00:00:00 2021-10-25 00:00:00 Telephone [facility] MEDICAL OFFICE BUILDING 1.84.114 350.1.13.10 4.2.7.2.686 [id number] [facility] 2021-10-25 00:00:00 2021-10-25 00:00:00 Telephone ProviderFilippo Urgent [facility] 1.84114 350.1.13.10 4.2.7.2.686 [id number] [facility] 2021-10-25 00:00:00 2021-10-25 00:00:00 Telephone Nurse, Filippo [facility] LULU BABIN?[facility] 1.2.840.114 350.1.13.10 4.2.7.2.686 [id number] [facility] 2021-10-24 10:15:00 2021-10-24 10:15:[address] [facility] [id number] [facility] 2021-10-24 10:15:00 2021-10-24 10:15:[address] [facility] [id number] [facility] 2021-10-11 09:30:00 2021-10-11 09:30:[address] [facility] [id number] [facility] 2021-10-10 13:30:00 2021-10-10 13:30:[address] [facility] [id number] [facility] 2021-10-10 13:30:00 2021-10-10 13:30:[address] [facility] [id number] [facility] 2021-10-10 13:30:00 2021-10-10 13:30:[address] [facility] [id number] [facility] 2021-10-10 13:30:00 2021-10-10 13:30:[address] [facility] [id number] [facility] 2021-10-10 13:30:00 2021-10-10 13:30:[address] [facility] [id number] [facility] 2021-10-10 13:30:00 2021-10-10 13:30:[address] [facility] [id number] [facility] 2021-10-10 13:30:00 2021-10-10 13:30:[address] [facility] [id number] [facility] 2021-10-05 00:00:00 2021-10-05 00:00:00 Patient Secure Msg Kendal Zamudio [facility]O [facility] MEDICAL OFFICE BUILDING 1.2.840.114 350.1.13.10 4.2.7.2.686 [id number] [facility] 2021-10-05 00:00:00 2021-10-05 00:00:00 Patient Secure Msg Kendla Zamudio [facility] MEDICAL OFFICE BUILDING 1.2.840.114 350.1.13.10 4.2.7.2.686 [id number] [facility] 2021-10-04 00:00:00 2021-10-04 00:00:00 Pre Visit Outreach Melia Rodriguez [facility] 1.2.840.114 350.1.13.10 4.2.7.2.686 [id number] [facility] 2021-09-28 13:30:00 2021-09-28 13:45:00 Office Visit Desiree Mohr [facility] 1.2.840.114 350.1.13.10 4.2.7.2.686 [id number] [facility] 2021-09-28 13:30:00 2021-09-28 13:30:00 Outpatient R DESIREE MOHR [facility] [id number] [facility] 2021-09-28 13:30:00 2021-09-28 13:30:00 Outpatient R DESIREE MOHR [facility] [id number] [facility] 2021-09-28 00:00:00 2021-09-28 00:00:00 Patient Secure [facility] [place] [facility] 1.2.840.114 350.1.13.10 4.2.7.2.686 [id number] [facility] 2021-09-27 14:00:00 2021-09-27 14:00:00 Outpatient R TETO CARNES [facility] [id number] [facility] 2021-09-27 09:30:00 2021-09-27 09:30:[address] [facility] [id number] [facility] 2021-09-27 09:30:00 2021-09-27 09:30:00 Outpatient R DANIA [address] [facility] [id number] [facility] 2021-09-27 09:30:00 2021-09-27 09:30:00 [address]I [address] [facility] [id number] [facility] 2021-09-26 10:45:00 2021-09-26 10:45:00 Outpatient R CRICKET TAYLOR [facility] [id number] [facility] 2021-09-26 10:45:00 2021-09-26 10:45:00 Outpatient R CRICKET [facility] [facility] [id number] [facility] 2021-09-26 00:00:00 2021-09-26 00:00:00 Patient Secure Ca Caraballo [facility] MEDICAL OFFICE BUILDING 1..840.114 350.1.13.10 4.2.7.2.686 [id number] [facility] 2021-09-26 00:00:00 2021-09-26 00:00:00 Patient Secure Richelle [facility]aballoCritical access hospital?[facility] MEDICAL OFFICE BUILDING 1..840.114 350.1.13.10 4.2.7.2.686 [id number] [facility] 2021-09-25 10:20:00 2021-09-25 11:10:42 Urgent Care Flaco Boyd Amanda [facility] 1.2.840.114 350.1.13.10 4.2.7.2.686 [id number] [facility] 2021-09-25 10:20:00 2021-09-25 11:10:42 [facility] [id number] [facility] 2021-09-25 10:20:00 2021-09-25 10:20:00 Outpatient R FLACO BOYD [facility] [id number] [facility] 2021-09-25 10:00:00 2021-09-25 10:00:[address] [facility] [id number] [facility] 2021-09-25 00:00:00 2021-09-25 00:00:00 Telephone Noelle Boydtany [facility] 1..840.114 350.1.13.10 4.2.7.2.686 [id number] [facility] 2021-09-25 00:00:00 2021-09-25 00:00:00 Patient Secure M[facility]..840.114 350.1.13.10 4.2.7.2.686 [id number] [facility] 2021-09-25 00:00:00 2021-09-25 00:00:00 Telephone Cricket Taylor [facility] 1.2.840.114 350.1.13.10 4.2.7.2.686 [id number] [facility] 2021-09-25 00:00:00 2021-09-25 00:00:00 Telephone Desiree Mohr [facility] [address] 1.2.840.114 350.1.13.10 4.2.7.2.686 [id number] [facility] 2021-09-15 00:00:00 2021-09-15 00:00:00 Patient Secure Msg Kendal Zamudio [facility] TALYA?[facility] MEDICAL OFFICE BUILDING 1.2840.114 350.1.13.10 4.2.7.2.686 [id number] [facility] 2021-09-15 00:00:00 2021-09-15 00:00:00 Patient Secure Msg Kendal Zamudio [facility] TALYA?[facility] MEDICAL OFFICE BUILDING 1.2840.114 350.1.13.10 4.2.7.2.686 [id number] [facility] 2021-09-15 00:00:00 2021-09-15 00:00:00 Patient Secure Msg Kendal Zamudio [facility] TALYA?[facility] MEDICAL OFFICE BUILDING 1.2840.114 350.1.13.10 4.2.7.2.686 [id number] [facility] 2021-09-14 00:00:00 2021-09-14 00:00:00 Patient Secure Msg Juan Ca [facility] TALYA?[facility] MEDICAL OFFICE BUILDING 1.2840.114 350.1.13.10 4.2.7.2.686 [id number] [facility] 2021-09-14 00:00:00 2021-09-14 00:00:00 Patient Secure Msg Doctor Unassigned, Mucarabones [facility] TALYA?[facility] MEDICAL OFFICE BUILDING 1.2840.114 350.1.13.10 4.2.7.2.686 [id number] [facility] 2021-09-12 10:30:00 2021-09-12 10:30:[address] [facility] [id number] [facility] 2021-09-12 10:30:00 2021-09-12 10:30:[address] [facility] [id number] [facility] 2021-09-12 00:00:00 2021-09-12 00:00:00 Patient Secure Msg Taj Dsouza [facility] 1.2840.114 350.1.13.10 4.2.7.2.686 [id number] [facility] 2021-09-12 00:00:00 2021-09-12 00:00:00 Orders Only Doctor Unassigned, Mucarabones [facility] 1.2840.114 350.1.13.10 4.2.7.2.686 [id number] [facility] 2021-09-12 00:00:00 2021-09-12 00:00:00 Patient Secure Msg Juan [facility] MEDICAL OFFICE BUILDING 1.2840.114 350.1.13.10 4.2.7.2.686 [id number] [facility] 2021-09-05 00:00:00 2021-09-05 00:00:00 Patient Secure Msg Juan [facility] MEDICAL OFFICE BUILDING 1.2840.114 350.1.13.10 4.2.7.2.686 [id number] 044 [id number] [facility] 2021-09-05 00:00:00 2021-09-05 00:00:00 Patient Secure Msg Doctor Unassigned, Mucarabones [facility] 1.2840.114 350.1.13.10 4.2.7.2.686 [id number] [facility] 2021-09-05 00:00:00 2021-09-05 00:00:00 Patient Secure Msg Doctor Unassigned, Mucarabones [facility] 1.2840.114 350.1.13.10 4.2.7.2.686 [id number] [facility] 2021-09-04 00:00:00 2021-09-04 00:00:00 Patient Secure Msg Ca Martinez [facility] TALYA?LINO [facility] MEDICAL OFFICE BUILDING 1.2840.114 350.1.13.10 4.2.7.2.686 [id number] [facility] 2021-08-28 00:00:00 2021-08-28 00:00:00 Patient Secure Msg Harsh Charles [facility] 1.840.114 350.1.13.10 4.2.7.2.686 [id number] [facility] 2021-08-25 00:00:00 2021-08-25 00:00:00 Telephone Dania Pennington [facility] TALYA?[facility] MEDICAL OFFICE BUILDING 1.2840.114 350.1.13.10 4.2.7.2.686 [id number] [facility] 2021-08-25 00:00:00 2021-08-25 00:00:00 Patient Secure Msg Ca Martinez [facility] TALYA?[facility] MEDICAL OFFICE BUILDING 1.2840.114 350.1.13.10 4.2.7.2.686 [id number] [facility] 2021-08-24 00:00:00 2021-08-24 00:00:00 Telephone Ca Martinez [facility] TALYA?[facility] MEDICAL OFFICE BUILDING 1.2840.114 350.1.13.10 4.2.7.2.686 [id number] [facility] 2021-08-24 00:00:00 2021-08-24 00:00:00 Patient Secure Msg Ca Martinez [facility] MEDICAL OFFICE BUILDING 1.2840.114 350.1.13.10 4.2.7.2.686 [id number] [facility] 2021-08-23 00:00:00 2021-08-23 00:00:00 Patient Secure Msg Ca Martinez [facility] MEDICAL OFFICE BUILDING 1.2840.114 350.1.13.10 4.2.7.2.686 [id number] [facility] 2021-08-23 00:00:00 2021-08-23 00:00:00 Telephone Ca Martinez [facility] MEDICAL OFFICE BUILDING 1.2840.114 350.1.13.10 4.2.7.2.686 [id number] [facility] 2021-08-22 00:00:00 2021-08-22 00:00:00 Telephone Ca Martinez [facility] MEDICAL OFFICE BUILDING 1.2840.114 350.1.13.10 4.2.7.2.686 [id number] [facility] 2021-08-22 00:00:00 2021-08-22 00:00:00 Patient Secure Msg Hallie Wilkinson [facility] MEDICAL OFFICE BUILDING 1.2840.114 350.1.13.10 4.2.7.2.686 [id number] [facility] 2021-08-18 00:00:00 2021-08-18 00:00:00 Telephone Ca Martinez [facility] BABIN?[facility]O [facility] MEDICAL OFFICE BUILDING 1.2840.114 350.1.13.10 4.2.7.2.686 [id number] [facility] 2021-08-17 09:00:00 2021-08-17 09:00:[address] [facility] [id number] [facility] 2021-08-17 09:00:00 2021-08-17 09:00:00 Outpatient DESIREE [facility] [id number] [facility] 2021-08-17 00:00:00 2021-08-17 00:00:00 Patient Secure Msg Prasanna Vargas J[facility] 1..840.114 350.1.13.10 4.2.7.2.686 [id number] [facility] 2021-08-17 00:00:00 2021-08-17 00:00:00 Patient Secure Msg Ca Martinez [facility], [facility] T[facility]YA?[facility] MEDICAL OFFICE BUILDING 1.2.840.114 350.1.13.10 4.2.7.2.686 [id number] 044 [id number] [facility] 2021-08-17 00:00:00 2021-08-17 00:00:00 Patient Secure Msg Ca Martinez [facility] MEDICAL OFFICE BUILDING 1..840.114 350.1.13.10 4.2.7.2.686 [id number] 044 [id number] [facility] 2021-08-16 00:00:00 2021-08-16 00:00:00 Patient Secure Msg Ca Martinez [facility], [facility] TALYA?[facility] MEDICAL OFFICE BUILDING 1..840.114 350.1.13.10 4.2.7.2.686 [id number] 044 [id number] [facility] 2021-08-16 00:00:00 2021-08-16 00:00:00 Patient Secure Msg Doctor Unassigned, Mucarabones [facility] MEDICAL OFFICE BUILDING 1.2.840.114 350.1.13.10 4.2.7.2.686 [id number] 044 [id number] [facility] 2021-08-16 00:00:00 2021-08-16 00:00:00 Patient Secure Msg Ca Martinez [facility], [facility] T[facility]YA?[facility] 1.2.840.114 350.1.13.10 4.2.7.2.686 [id number] 044 [id number] [facility] 2021-08-16 00:00:00 2021-08-16 00:00:00 Patient Secure g Ca Martinez [facility], [facility] T[facility]YA?[facility] 1.2.840.114 350.1.13.10 4.2.7.2.686 [id number] 044 [id number] [facility] 2021-08-15 15:30:00 2021-08-15 16:16:42 Office Visit Adán Kim [facility] 1.2.840.114 350.1.13.10 4.2.7.2.686 [id number] [facility] 2021-08-15 15:30:00 2021-08-15 16:16:42 Outpatient ADÁN D[facility] [id number] [facility] 2021-08-15 15:30:00 2021-08-15 15:30:00 Outpatient ADÁN DIEGO [facility] [id number] [facility] 2021-08-15 15:30:00 2021-08-15 15:30:00 Outpatient ADÁN DIEGO [facility] [id number] [facility] 2021-08-15 15:30:00 2021-08-15 15:30:00 Outpatient ADÁN DIEGO [facility] [id number] [facility] 2021-08-15 09:27:00 2021-08-15 12:26:00 Emergency X MAURA [facility] ERT [id number] [facility] 2021-08-15 09:27:00 2021-08-15 12:26:00 Emergency Maura Cox [facility] 1.840.114 350.1.13.10 4.2.7.2.686 [id number] [facility] 2021-08-15 09:27:00 2021-08-15 12:26:00 Emergency MAURA [facility] ERT [id number] [facility] 2021-08-15 00:00:00 2021-08-15 00:00:00 Patient Secure Msg Doctor Unassigned, Mucarabones [facility] 1.840.114 350.1.13.10 4.2.7.2.686 [id number] [facility] 2021-08-14 13:25:00 2021-08-14 23:59:[address] [facility] [id number] [facility] 2021-08-14 13:25:00 2021-08-14 23:59:[address] [facility] [id number] [facility] 2021-08-14 13:25:00 2021-08-14 13:25:[address] [facility] [id number] [facility] 2021-08-14 12:19:07 2021-08-14 13:24:[address] [facility] [id number] [facility] 2021-08-14 12:19:07 2021-08-14 13:24:[address] [facility] [id number] [facility] 2021-08-14 12:30:00 2021-08-14 13:01:24 Vice President Quality Visit Lab, Ca Pang [facility] 1.840.114 350.1.13.10 4.2.7.2.686 [id number] [facility] 2021-08-14 12:30:00 2021-08-14 12:45:00 Vice President Quality Visit Lab, Filippo ReneeCa chavez [facility] MEDICAL OFFICE BUILDING 1.2.840.114 350.1.13.10 4.2.7.2.686 [id number] [facility] 2021-08-14 11:30:00 2021-08-14 12:31:12 Office Visit VíctorCa chavez [facility], [facility] TALYA?[facility] MEDICAL OFFICE BUILDING 1..840.114 350.1.13.10 4.2.7.2.686 [id number] 044 [id number] [facility] 2021-08-14 11:30:00 2021-08-14 12:31:12 [address] R JUAN [facility] [id number] [facility] 2021-08-14 00:00:00 2021-08-14 00:00:00 Patient Secure Msg Ca Martinez [facility], [facility] T[facility]YA?[facility] 1.2.840.114 350.1.13.10 4.2.7.2.686 [id number] 044 [id number] [facility] 2021-08-14 00:00:00 2021-08-14 00:00:00 Patient Secure Msg Ca Martinez [facility] MEDICAL OFFICE BUILDING 1.2.840.114 350.1.13.10 4.2.7.2.686 [id number] 044 [id number] [facility] 2021-08-09 14:45:00 2021-08-09 14:45:00 Outpatient ADÁN DIEGO [facility] [id number] [facility] 2021-08-09 00:00:00 2021-08-09 00:00:00 Telephone JuanCa [facility], [facility] TALYA?[facility] OFF[facility] BUILDING 1.2.840.114 350.1.13.10 4.2.7.2.686 [id number] [facility] 2021-08-08 11:30:00 2021-08-08 23:59:00 Outpatient R CA [facility]ART[facility]Z [facility] [id number] [facility] 2021-08-08 11:30:00 2021-08-08 23:59:00 Hospital Encounter Juan Ca [facility] MEDICAL OFFICE BUILDING 1.2.840.114 350.1.13.10 4.2.7.2.686 [id number] [facility] 2021-08-08 11:15:00 2021-08-08 11:15:00 Outpatient R CA [facility] [id number] [facility] 2021-08-08 11:00:00 2021-08-08 11:00:00 Outpatient R CA [facility] [id number] [facility] 2021-08-08 00:00:00 2021-08-08 00:00:00 Patient Secure Msg Doctor Unassigned, Mucarabones [facility] 1.2.840.114 350.1.13.10 4.2.7.2.686 [id number] [facility] 2021-08-07 09:30:00 2021-08-07 10:23:21 Office Visit Juan Ca [facility], [facility] T[facility]YA?[facility] 1.2.840.114 350.1.13.10 4.2.7.2.686 [id number] [facility] 2021-08-07 09:30:00 2021-08-07 10:23:21 Outpatient R CA [facility] [id number] [facility] 2021-08-07 09:30:00 2021-08-07 09:30:00 Outpatient R CA [facility] [id number] [facility] 2021-08-07 00:00:00 2021-08-07 00:00:00 Patient Secure g Ca Martinez [facility] 1..840.114 350.1.13.10 4.2.7.2.686 [id number] 044 [id number] [facility] 2021-08-07 00:00:00 2021-08-07 00:00:00 Patient Secure Msg Ca Martinez [facility], [facility] TALYA?[facility] MEDICAL OFFICE BUILDING 1.840.114 350.1.13.10 4.2.7.2.686 [id number] [facility] 2021-08-07 00:00:00 2021-08-07 00:00:00 Patient Secure g Desiree Mohr [facility] 1.840.114 350.1.13.10 4.2.7.2.686 [id number] [facility] 2021-08-04 10:00:00 2021-08-04 10:00:00 Outpatient R PETRA [facility] [id number] [facility] 2021-08-04 00:00:00 2021-08-04 00:00:00 Patient Secure g Ca Martinez [facility], [facility]1983 TALYA?[facility] MEDICAL OFFICE BUILDING 1..840.114 350.1.13.10 4.2.7.2.686 [id number] 044 [id number] [facility] 2021-08-03 11:00:00 2021-08-03 12:48:43 Office Visit Juan Diaz Y DFMSim [facility]. 1..840.114 350.1.13.10 4.2.7.2.686 [id number] [facility] 2021-08-03 11:00:00 2021-08-03 12:48:[address] [facility] [id number] [facility] 2021-08-03 11:00:00 2021-08-03 11:00:[address] [facility] [id number] [facility] 2021-08-03 00:00:00 2021-08-03 00:00:00 Patient Secure g Desiree Mohr [facility] [place] [facility] 1.840.114 350.1.13.10 4.2.7.2.686 [id number] [facility] 2021-08-02 00:00:00 2021-08-02 00:00:00 Telephone Juan Ca [facility], [facility] TALYA?[facility] MEDICAL OFFICE BUILDING 1.840.114 350.1.13.10 4.2.7.2.686 [id number] [facility] 2021-07-21 08:00:00 2021-07-21 08:52:53 Outpatient DARRION QUIROZ [facility] [id number] [facility] 2021-07-17 11:30:00 2021-07-17 11:30:[address] [facility] [id number] [facility] 2021-07-17 00:00:00 2021-07-17 00:00:00 Patient Secure Juan Ca [facility], [facility] TALYA?[facility] MEDICAL OFFICE BUILDING 1.840.114 350.1.13.10 4.2.7.2.686 [id number] [facility] 2021-06-19 00:00:00 2021-06-19 00:00:00 Telephone Juan Ca [facility], [facility] TALYA?[facility] MEDICAL OFFICE BUILDING 1.840.114 350.1.13.10 4.2.7.2.686 [id number] [id number] [facility] 2021-06-09 00:00:00 2021-06-09 00:00:00 Telephone Reji Garcia [facility] 1..840.114 350.1.13.10 4.2.7.2.686 [id number] [facility] 2021-06-06 11:15:00 2021-06-06 11:15:00 Outpatient R TETO [facility] [id number] [facility] 2021-06-06 11:15:00 2021-06-06 11:15:00 Outpatient R TETO [facility] [id number] [facility] 2021-06-02 15:45:00 2021-06-02 15:45:00 Outpatient R CLAUDETTE [address]ANS [facility] [id number] [facility] 2021-05-31 10:00:00 2021-05-31 10:46:31 Outpatient R CA [facility]Z [facility] [id number] [facility] 2021-05-31 10:00:00 2021-05-31 10:46:31 Office Visit Ca Martinez [facility], [facility] TALYA?[facility] 1..840.114 350.1.13.10 4.2.7.2.686 [id number] [id number] [facility] 2021-05-31 10:00:00 2021-05-31 10:46:31 Outpatient R CA [facility] [id number] [facility] 2021-05-31 00:00:00 2021-05-31 00:00:00 Orders Only Doctor Unassigned, Mucarabones [facility] 1..840.114 350.1.13.10 4.2.7.2.686 [id number] [facility] 2021-05-26 00:00:00 2021-05-26 00:00:00 Telephone Skylar Groves [facility], [facility]1983 TALYA?[facility] MEDICAL OFFICE BUILDING 1.2840.114 350.1.13.10 4.2.7.2.686 [id number] [id number] [facility] 2021-05-26 00:00:00 2021-05-26 00:00:00 Patient Secure Msg Prasanna [facility]argas [facility] 1.840.114 350.1.13.10 4.2.7.2.686 [id number] [facility] 2021-05-25 14:00:00 2021-05-25 14:30:00 Telemedici ne Visit Skylar Groves [facility], [facility] TALYA?[facility] MEDICAL OFFICE BUILDING 1.840.114 350.1.13.10 4.2.7.2.686 [id number] [facility] 2021-05-25 14:00:00 2021-05-25 14:00:00 Outpatient R SKYLAR GROVES [facility] [id number] [facility] 2021-05-25 14:00:00 2021-05-25 14:00:00 Outpatient R SKYLAR [facility] [facility] [id number] [facility] 2021-05-25 00:00:00 2021-05-25 00:00:00 Patient Secure g Skylar Groves [facility], [facility] TALYA?[facility] MEDICAL OFFICE BUILDING 1.284.114 350.1.13.10 4.2.7.2.686 [id number] 044 [id number] [facility] 2021-05-25 00:00:00 2021-05-25 00:00:00 Patient Secure g Skylar Groves [facility], [facility] TALYA?[facility] MEDICAL OFFICE BUILDING 1.2840.114 350.1.13.10 4.2.7.2.686 [id number] 044 [id number] [facility] 2021-05-24 00:00:00 2021-05-24 00:00:00 Telephone Rad Serra [facility] 1.2.840.114 350.1.13.10 4.2.7.2.686 [id number] [facility] 2021-05-24 00:00:00 2021-05-24 00:00:00 Patient Secure Msg Delroy Rad RauschGrant [facility] 1.2.840.114 350.1.13.10 4.2.7.2.686 [id number] [id number] [facility] 2021-05-24 00:00:00 2021-05-24 00:00:00 Patient Secure Msg Claudette Evans [facility], [facility] TALYA?KARLOSKassandra [facility] MEDICAL OFFICE BUILDING 1.2.840.114 350.1.13.10 4.2.7.2.686 [id number] 044 [id number] [facility] 2021-05-23 10:00:00 2021-05-23 10:00:[address] [facility] [id number] [facility] 2021-05-23 10:00:00 2021-05-23 10:00:[address] [facility] [id number] [facility] 2021-05-23 00:00:00 2021-05-23 00:00:00 Patient Secure Msg Claudette Evans A [facility], [facility]1983 TALYA?KARLOSKassandra [facility] MEDICAL OFFICE BUILDING 1.2.840.114 350.1.13.10 4.2.7.2.686 [id number] [id number] [facility] 2021-05-16 09:00:00 2021-05-16 09:00:00 Outpatient R TETO [facility] [id number] [facility] 2021-05-12 00:00:00 2021-05-12 00:00:00 Orders Only Doctor Unassigned, Mucarabones [facility] 1.2.840.114 350.1.13.10 4.2.7.2.686 [id number] [facility] 2021-05-10 13:00:00 2021-05-10 13:00:[address] [facility] [id number] [facility] 2021-05-10 13:00:00 2021-05-10 13:00:00 Outpatient Farzana [facility] [id number] [facility] 2021-05-09 00:00:00 2021-05-09 00:00:00 Telephone Prasanna [facility]argas [facility] 1.2.840.114 350.1.13.10 4.2.7.2.686 [id number] [facility] 2021-05-09 00:00:00 2021-05-09 00:00:00 Patient Secure Msg Rad Serra [facility] NAL BUILDING 1..840.114 350.1.13.10 4.2.7.2.686 [id number] [facility] 2021-05-08 16:00:00 2021-05-08 16:00:[address] [facility] [id number] [facility] 2021-05-08 16:00:00 2021-05-08 16:00:[address] [facility] [id number] [facility] 2021-05-08 00:00:00 2021-05-08 00:00:00 Patient Secure Msg Serra Sendzohra [facility] NAL BUILDING 1..840.114 350.1.13.10 4.2.7.2.686 [id number] [facility] 2021-05-08 00:00:00 2021-05-08 00:00:00 Patient Secure Msg Rad Serra [facility] BUILDING 1.2.840.114 350.1.13.10 4.2.7.2.686 [id number] [id number] [facility] 2021-05-04 00:00:00 2021-05-04 00:00:00 Patient Secure Msg Rad Serra [facility] BUILDING 1..840.114 350.1.13.10 4.2.7.2.686 [id number] [id number] [facility] 2021-05-04 00:00:00 2021-05-04 00:00:00 Patient Secure Msg Radha [facility] BUILDING 1..840.114 350.1.13.10 4.2.7.2.686 [id number] [facility] 2021-05-03 11:15:36 2021-05-03 23:59:00 Outpatient R RADHA [facility] [id number] [facility] 2021-05-03 11:15:36 2021-05-03 23:59:00 [facility] 1..840.114 350.1.13.10 4.2.7.2.686 [id number] [facility] 2021-05-03 00:00:00 2021-05-03 00:00:00 Telephone Claudette Evans [facility], [facility] T[facility]YA?[facility] 1..840.114 350.1.13.10 4.2.7.2.686 [id number] 044 [id number] [facility] 2021-05-02 00:00:00 2021-05-02 00:00:00 Telephone Rad Serra [facility] NAL BUILDING 1.2840.114 350.1.13.10 4.2.7.2.686 [id number] [facility] 2021-05-02 00:00:00 2021-05-02 00:00:00 Patient Secure Msg Claudette Evans A [facility], [facility]1983 TALYA?[facility] MEDICAL OFFICE BUILDING 1.2840.114 350.1.13.10 4.2.7.2.686 [id number] 044 [id number] [facility] 2021-05-02 00:00:00 2021-05-02 00:00:00 Telephone Claudette Evans A [facility], [facility]1983 TALYA?[facility] MEDICAL OFFICE BUILDING 1.2840.114 350.1.13.10 4.2.7.2.686 [id number] 044 [id number] [facility] 2021-05-02 00:00:00 2021-05-02 00:00:00 Patient Secure Msg SerraRad.H. [facility] BUILDING 1.840.114 350.1.13.10 4.2.7.2.686 [id number] 059 [id number] [facility] 2021-05-02 00:00:00 2021-05-02 00:00:00 Patient Secure Msg Claudette Evans A [facility], [facility]1983 TALYA?[facility] MEDICAL OFFICE BUILDING 1.2840.114 350.1.13.10 4.2.7.2.686 [id number] 044 [id number] [facility] 2021-04-28 00:00:00 2021-04-28 00:00:00 Patient Secure Msg Claudette Evans [facility] MEDICAL OFFICE BUILDING 1.2840.114 350.1.13.10 4.2.7.2.686 [id number] [facility] 2021-04-27 14:24:00 2021-04-27 15:49:00 Emergency X [facility] ERT [id number] [facility] 2021-04-27 14:24:00 2021-04-27 15:49:00 Emergency Maggie Hamilton [facility] 1..840.114 350.1.13.10 4.2.7.2.686 [id number] [facility] 2021-04-27 11:15:00 2021-04-27 11:30:00 Laboratory Only Only, Ang Db Test Unknown, Attending Thony Johnson [facility] BU[facility] 1..840.114 350.1.13.10 4.2.7.2.686 [id number] [facility] 2021-04-27 11:15:00 2021-04-27 11:15:[address] [facility] [id number] [facility] 2021-04-27 00:00:00 2021-04-27 00:00:00 Orders Only Doctor Unassigned, Mucarabones [facility] 1..840.114 350.1.13.10 4.2.7.2.686 [id number] [facility] 2021-04-20 15:00:00 2021-04-20 15:00:00 Outpatient R SCOTT [facility] [facility] [id number] [facility] 2021-04-13 00:00:00 2021-04-13 00:00:00 Patient Secure Msg Claudette Evans [facility], [facility]1983 TALYA?[facility] MEDICAL OFFICE BUILDING 1..840.114 350.1.13.10 4.2.7.2.686 [id number] 044 [id number] [facility] 2021-04-12 00:00:00 2021-04-12 00:00:00 Telephone Claudette Evans [facility] 1..840.114 350.1.13.10 4.2.7.2.686 [id number] 044 [id number] [facility] 2021-03-27 00:00:00 2021-03-27 00:00:00 Telephone Prasanna Vargas [facility] NAL BUILDING 1..840.114 350.1.13.10 4.2.7.2.686 [id number] [facility] 2021-03-24 00:00:00 2021-03-24 00:00:00 Patient Secure Msg Doctor Unassigned, Mucarabones [facility] 1..840.114 350.1.13.10 4.2.7.2.686 [id number] [facility] 2021-03-23 13:30:00 2021-03-23 13:30:00 Outpatient R PINO [facility]OFF [facility] [id number] [facility] 2021-03-23 13:30:00 2021-03-23 13:30:00 Outpatient R PINO [facility] [facility] [id number] [facility] 2021-03-22 09:20:00 2021-03-22 09:20:00 Outpatient R ADITYA MEEKS STRAHIL [facility] [id number] [facility] 2021-03-22 09:20:00 2021-03-22 09:20:00 Outpatient R ADITYA MEEKS [facility] [id number] [facility] 2021-03-20 00:00:00 2021-03-20 00:00:00 Outpatient R CLAUDETTE [address]ANS [facility] [id number] [facility] 2021-03-18 00:00:00 2021-03-18 00:00:00 Case Management Claudette Evans [facility] MEDICAL OFFICE BUILDING 1.2.840.114 350.1.13.10 4.2.7.2.686 [id number] [facility] 2021-03-16 11:16:07 2021-03-16 11:31:07 Vice President Quality Visit Lab, Ang - Db Claudette Evans [facility] ANGLEROBERTA BABIN?[facility] MEDICAL OFFICE BUILDING 1.2.840.114 350.1.13.10 4.2.7.2.686 [id number] [facility] 2021-03-16 11:30:00 2021-03-16 11:30:00 Outpatient R CLAUDETTE EVANS [facility] [id number] [facility] 2021-03-16 11:00:00 2021-03-16 11:14:45 Outpatient R CLAUDETTE [facility]ANS [facility] [id number] [facility] 2021-03-16 10:00:58 2021-03-16 11:14:45 Office Visit LibertyClaudette ibrahim [facility] ANGLEROBERTA BABIN?[facility] MEDICAL OFFICE BUILDING 1.2.840.114 350.1.13.10 4.2.7.2.686 [id number] [facility] 2021-03-16 00:00:00 2021-03-16 00:00:00 Patient Secure Msg Claud[facility] MEDICAL OFFICE BUILDING 1.2.840.114 350.1.13.10 4.2.7.2.686 [id number] [facility] 2021-03-02 16:15:00 2021-03-02 16:15:00 Outpatient R CLAUDETTE EVANS [facility] [id number] [facility] 2021-02-28 18:30:00 2021-02-28 18:30:00 Outpatient R WILLIE MEDRANO [facility] [id number] [facility] 2021-02-28 00:00:00 2021-02-28 00:00:00 Telephone Claudette Evans [facility] Talya?[facility] Medical Office Building 1.2.840.114 350.1.13.10 4.2.7.2.686 [id number] [facility] 2021-02-27 09:00:00 2021-02-27 09:00:[address] [facility] [id number] [facility] 2021-02-23 00:00:00 2021-02-23 00:00:00 Telephone Claudette Evans [facility] Talya?[facility] 1.2.840.114 350.1.13.10 4.2.7.2.686 [id number] [facility] 2021-02-10 18:12:00 2021-02-10 23:39:00 Emergency Kaycee Méndez [facility] 1.2.840.114 350.1.13.10 4.2.7.2.686 [id number] [facility] 2021-02-10 00:00:00 2021-02-10 00:00:00 Patient Secure Msg Claudette Evans [facility] TALYA[facility] [facility] BUILDING 1.2.840.114 350.1.13.10 4.2.7.2.686 [id number] 044 [id number] [facility] 2021-02-10 00:00:00 2021-02-10 00:00:00 Patient Secure Msg Branden Evansful Kassandra [facility] TALYA?[facility] MEDICAL OFFICE BUILDING 1.2.840.114 350.1.13.10 4.2.7.2.686 [id number] [id number] [facility] 2021-02-10 00:00:00 2021-02-10 00:00:00 Patient Secure Msg Claudette Evans [facility] MEDICAL OFFICE BUILDING 1.2.840.114 350.1.13.10 4.2.7.2.686 [id number] 044 [id number] [facility] 2021-02-10 00:00:00 2021-02-10 00:00:00 Patient Secure Msg Claudette Evans [facility] MEDICAL OFFICE BUILDING 1.2.840.114 350.1.13.10 4.2.7.2.686 [id number] [id number] [facility] 2021-02-09 13:40:00 2021-02-09 23:59:00 Hospital [facility] Medical Office Building 1.2.840.114 350.1.13.10 4.2.7.2.686 [id number] [facility] 2021-02-09 13:49:05 2021-02-09 14:04:05 Vice President Quality Visit Lab, Ang - Db Claudette Evans [facility] Talya?[facility] Medical Office Building 1.2.840.114 350.1.13.10 4.2.7.2.686 [id number] [facility] 2021-02-09 12:23:13 2021-02-09 13:47:12 Office [facility] Medical Office Building 1.2.840.114 350.1.13.10 4.2.7.2.686 [id number] [facility] 2021-02-09 13:00:00 2021-02-09 13:00:00 Outpatient R CLAUDETTE EVANS [facility] [id number] [facility] 2021-02-09 00:00:00 2021-02-09 00:00:00 Patient Secure Msg Doctor Unassigned, Mucarabones [facility] 1.2.840.114 350.1.13.10 4.2.7.2.686 [id number] [facility] 2021-02-08 10:20:00 2021-02-08 10:20:00 Outpatient R ADITYA MEEKS STRAHIL [facility] [id number] [facility] 2021-02-07 00:00:00 2021-02-07 00:00:00 Patient Secure Msg [facility] MEDICAL OFFICE BUILDING 1.2.840.114 350.1.13.10 4.2.7.2.686 [id number] 044 [id number] [facility] 2021-02-02 10:30:00 2021-02-02 10:30:00 Outpatient R SKYLAR GROVES [facility] [id number] [facility] 2021-02-02 00:00:00 2021-02-02 00:00:00 Telephone [facility] Medical Office Building 1.2.840.114 350.1.13.10 4.2.7.2.686 [id number] [facility] 2021-02-01 08:30:00 2021-02-01 08:30:00 Outpatient R SKYLAR GROVES [facility] [id number] [facility] 2021-01-31 18:44:04 2021-01-31 19:41:26 Urgent Care Flaco Boyd [facility] Medical Office Building 1.2.840.114 350.1.13.10 4.2.7.2.686 [id number] [facility] 2021-01-31 19:00:00 2021-01-31 19:00:00 Outpatient R FLAOC BOYD [facility] [id number] [facility] 2021-01-31 00:00:00 2021-01-31 00:00:00 Telephone Claudette Evans [facility] Talya?[facility] Medical Office Building 1..840.114 350.1.13.10 4.2.7.2.686 [id number] 044 [id number] [facility] 2021-01-31 00:00:00 2021-01-31 00:00:00 Patient Secure Msg Claudette Evans [facility] TALYA?LINO [facility] MEDICAL OFFICE BUILDING 1..840.114 350.1.13.10 4.2.7.2.686 [id number] 044 [id number] [facility] 2021-01-30 00:00:00 2021-01-30 00:00:00 Telephone Rad Serra [facility] Building 1..840.114 350.1.13.10 4.2.7.2.686 [id number] [facility] 2021-01-30 00:00:00 2021-01-30 00:00:00 Patient Secure Msg Claudette Evans [facility] OFFICE BUILDING ONE 1..840.114 350.1.13.10 4.2.7.2.686 [id number] [facility] 2021-01-26 14:00:00 2021-01-26 14:00:00 Outpatient R RAD SERRA [facility] [id number] [facility] 2021-01-26 00:00:00 2021-01-26 00:00:00 Patient Secure Msg Skylar Groves [facility] TALYA?[facility] MEDICAL OFFICE BUILDING 1.2.840.114 350.1.13.10 4.2.7.2.686 [id number] 044 [id number] [facility] 2021-01-25 15:00:00 2021-01-25 15:00:[address] [facility] [id number] [facility] 2021-01-21 00:00:00 2021-01-21 00:00:00 Patient Secure Msg Skylar Groves [facility] MEDICAL OFFICE BUILDING 1.2.114 350.1.13.10 4.2.7.2.686 [id number] 044 [id number] [facility] 2021-01-20 16:51:22 2021-01-20 17:12:41 Telemedici ne Visit Skylar Groves [facility] Medical Office Building 1.114 350.1.13.10 4.2.7.2.686 [id number] 044 [id number] [facility] 2021-01-20 16:30:00 2021-01-20 16:30:00 Outpatient R SKYLAR GROVES [facility] [id number] [facility] 2021-01-19 10:15:00 2021-01-19 10:15:00 Outpatient R LORI KAYLEY [facility] [id number] [facility] 2021-01-14 00:00:00 2021-01-14 00:00:00 Case Management Kassandra Benavides [facility] 1..114 350.1.13.10 4.2.7.2.686 [id number] [facility] 2021-01-14 00:00:00 2021-01-14 00:00:00 Patient Secure Msg Doctor Unassigned, Mucarabones [facility] 1.0.114 350.1.13.10 4.2.7.2.686 [id number] [facility] 2021-01-12 16:10:00 2021-01-12 19:45:00 Emergency Hany Matthews [facility] 1.0.114 350.1.13.10 4.2.7.2.686 [id number] [facility] 2021-01-12 15:20:00 2021-01-12 15:20:00 Outpatient R WILLIE MEDRANO [facility] [id number] [facility] 2021-01-12 14:46:57 2021-01-12 15:06:57 Urgent Care Elizabeth, Thony Mitchell, Formerly [facility], [facility]e?[facility] Medical Office Building 1.2.840.114 350.1.13.10 4.2.7.2.686 [id number] [facility] 2020-12-26 15:30:00 2020-12-26 16:13:32 Outpatient R RAD [facility]RA [facility] [id number] [facility] 2020-12-26 15:30:00 2020-12-26 16:13:32 Office Visit Rad Serra [facility] BUILDING 1..840.114 350.1.13.10 4.2.7.2.686 [id number] 059 [id number] [facility] 2020-12-26 15:00:32 2020-12-26 16:13:32 Office Visit Rad Serra [facility] Building 1.2.840.114 350.1.13.10 4.2.7.2.686 [id number] [facility] 2020-12-26 15:30:00 2020-12-26 15:30:00 Outpatient R RAD [address]RA [facility] [id number] [facility] 2020-11-29 00:00:00 2020-11-29 00:00:00 Patient Secure Msg Rad SerraHPilar [facility] BUILDING 1.2.840.114 350.1.13.10 4.2.7.2.686 [id number] [id number] [facility] 2020-11-22 11:00:00 2020-11-22 11:00:00 Outpatient R DESIREE MOHR [facility] [id number] [facility] 2020-11-10 18:42:46 2020-11-10 19:53:43 Urgent Care Alissa Collins [facility] Office Building One 1.114 350.1.13.10 4.2.7.2.686 [id number] 2020-11-10 19:00:00 2020-11-10 19:00:[address] [facility] [id number] [facility] 2020-10-31 18:52:00 2020-10-31 22:15:00 Emergency Dev Kaycee [facility] 1..114 350.1.13.10 4.2.7.2.686 [id number] 2020-10-31 19:00:00 2020-10-31 19:00:00 Outpatient R BEBA KAUR [facility] [id number] [facility] 2020-10-31 00:00:00 2020-10-31 00:00:00 Orders Only Doctor Unassigned, Mucarabones [facility] 1..114 350.1.13.10 4.2.7.2.686 [id number] 2020-10-20 14:02:00 2020-10-20 17:13:00 [facility] 1.0.114 350.1.13.10 4.2.7.2.686 [id number] 2020-10-18 00:00:00 2020-10-18 00:00:00 Patient Secure Msg Prasanna Vargas [facility] BUILDING 1.114 350.1.13.10 4.2.7.2.686 [id number] 134 [id number] [facility] 2020-10-14 10:00:00 2020-10-14 23:59:00 Hospital Encounter Prasanna Vargas [facility] 1.2.840.114 350.1.13.10 4.2.7.2.686 [id number] 2020-10-14 13:30:00 2020-10-14 13:30:[address] [facility] [id number] [facility] 2020-10-11 00:00:00 2020-10-11 00:00:00 Patient Secure Msg Prasanna Vargas [facility] 1.2.840.114 350.1.13.10 4.2.7.2.686 [id number] 134 [id number] [facility] 2020-10-11 00:00:00 2020-10-11 00:00:00 Patient Secure Msg Prasanna [facility]arg[facility] 1.2.840.114 350.1.13.10 4.2.7.2.686 [id number] 134 [id number] [facility] 2020-10-09 12:00:00 2020-10-09 15:57:00 Emergency Lydia Kim [facility] 1.2.840.114 350.1.13.10 4.2.7.2.686 [id number] 2020-10-07 00:00:00 2020-10-07 00:00:00 Patient Secure Msg Prasanna Vargas [facility] PROFESSIO NAL BUILDING 1.2.840.114 350.1.13.10 4.2.7.2.686 [id number] 134 [id number] [facility] 2020-10-07 00:00:00 2020-10-07 00:00:00 Patient Secure Msg [facility] 1.2.840.114 350.1.13.10 4.2.7.2.686 [id number] 134 [id number] [facility] 2020-10-07 00:00:00 2020-10-07 00:00:00 Patient Secure Msg Prasanna Vargas [facility] PROFESSIO NAL BUILDING 1.2.840.114 350.1.13.10 4.2.7.2.686 [id number] 134 [id number] [facility] 2020-10-07 00:00:00 2020-10-07 00:00:00 Patient Secure Msg Prasanna Vargas [facility] PROFESSIO NAL BUILDING 1.2.840.114 350.1.13.10 4.2.7.2.686 [id number] 134 [id number] [facility] 2020-10-07 00:00:00 2020-10-07 00:00:00 Patient Secure Msg Prasanna Vargas [facility] PROFESSIO NAL BUILDING 1.2.840.114 350.1.13.10 4.2.7.2.686 [id number] 134 [id number] [facility] 2020-10-07 00:00:00 2020-10-07 00:00:00 Patient Secure Msg Prasanna Vargas [facility] PROFESSIO NAL BUILDING 1.2.840.114 350.1.13.10 4.2.7.2.686 [id number] 134 [id number] [facility] 2020-10-07 00:00:00 2020-10-07 00:00:00 Patient Secure Msg Prasanna Vargas [facility] EDNA PROFESSIO NAL BUILDING 1.2.840.114 350.1.13.10 4.2.7.2.686 [id number] 134 [id number] [facility] 2020-10-06 08:53:00 2020-10-06 09:46:44 Office Visit Prasanna Vargas [facility] Professio nal Building 1.2.840.114 350.1.13.10 4.2.7.2.686 [id number] 134 [id number] 2020-10-06 09:30:00 2020-10-06 09:30:00 Outpatient R PRASANNA VARGAS [facility] [id number] [facility] 2020-10-04 14:00:00 2020-10-04 14:00:00 Outpatient R DESIREE MOHR [facility] [id number] [facility] 2020-09-30 10:30:00 2020-09-30 10:30:00 Outpatient R DESIREE MOHR [facility] [id number] [facility] 2020-09-29 13:45:00 2020-09-29 13:45:00 Outpatient R [address]ET [address] [facility] [id number] [facility] 2020-09-06 15:30:00 2020-09-06 15:30:00 Outpatient R PRASANNA VARGAS [facility] [id number] [facility] 2020-09-05 00:00:00 2020-09-05 00:00:00 Patient Secure Msg Prasanna Vargas [facility] 1..840.114 350.1.13.10 4.2.7.2.686 [id number] 134 [id number] [facility] 2020-09-02 15:40:00 2020-09-02 15:40:00 Outpatient DARRION QUIROZ [facility] [id number] [facility] 2020-08-31 10:30:00 2020-08-31 10:30:00 Outpatient R RAD [address]RA [facility] [id number] [facility] 2020-08-31 00:00:00 2020-08-31 00:00:00 Patient Secure Msg Prasanna Vargas [facility] BUILDING 1.2.840.114 350.1.13.10 4.2.7.2.686 [id number] 134 [id number] [facility] 2020-08-18 09:30:00 2020-08-18 09:30:00 Outpatient R PRASANNA VARGAS [facility] [id number] [facility] 2020-08-11 13:30:00 2020-08-11 13:30:00 Outpatient R VARGAS PRASANNA [facility] [id number] [facility] 2020-08-04 14:00:00 2020-08-04 14:00:00 Outpatient R SCOTT GILBERT [facility] [id number] [facility] 2020-07-28 10:30:00 2020-07-28 10:30:00 Outpatient R RAD [facility]RA [facility] [id number] [facility] 2020-06-30 16:15:00 2020-06-30 16:15:00 Outpatient R CLAUDETTE EVANS [facility] [id number] [facility] 2020-06-17 15:00:00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 02/25/2024UnSt[facility] HospitalMR ABDOMEN W WO CONTRAST [id number] 21:07:42EXAM: MRI ABDOMEN with and without CONTRAST [...] cholecystectomy. There is a tiny focus of E3jhevjbancnjabi seen only on the T2 fat-suppressed axial [...] No lymphadenopathy. VESSELS:Unremarkable. BONES AND SOFT TISSUES: Unremarkable.[facility] HospitalMR ABDOMEN W WO CONTRAST [id number] 21:07:42EXAM: MRI ABDOMEN with and without CONTRAST [...] cholecystectomy. There is a tiny focus of W3akunweggpvtibr seen only on the T2 fat-suppressed axial [...] No lymphadenopathy. VESSELS:Unremarkable. BONES AND SOFT TISSUES: Unremarkable.[facility] GLUCOSE (AUTOMATED) 2024-02-24 01:35:26* Test Item Value Reference Range Interpretation Comme [facility] POCT GLU (test code = 2624466846) 95 mg/dL 70-110 Lab Interpretation (test cod e = 97481-8) Normal [facility] GLUCOSE (AUTOMATED)2024-02-24 01:35:26* Test Item Value Reference Range Interpretation Comme nts POCT GLU (test code = 6227142264) 95 mg/dL 70-110 Lab Interpretation (test cod e = 43622-2) Normal [facility] HospitalHcv Kkfzuwfi3432-79-34 21:28:55* Test Item Value Reference Range Interpretation Comme [facility] HCV Ab (test code = 29577-3) Negative HCV Semi-Quantitative (test code = 08616-9) 0.01 [facility] HospitalHcv Kyemrqws1965-06-04 21:28:55* Test Item Value Reference Range Interpretation Comme [facility] HCV Ab (test code = 38049-3) Negative HCV Semi-Quantitative (test code = 43181-4) 0.01 [facility]-Reactive Rjnxytx4931-93-65 18:59:19* Test Item Value Reference Range Interpretation Comme nts CRP (test code = 3134739507) 0.3 mg/dL <=0.8 Lab Interpretation (test cod e = 59140-1) Normal [facility]-Reactive Liyalel2425-84-78 18:59:19* Test Item Value Reference Range Interpretation Comme nts CRP (test code = 6167307127) 0.3 mg/dL <=0.8 Lab Interpretation (test cod e = 68542-9) Normal [facility] B Surface Ziqqmvct4305-53-23 16:37:53* Test Item Value Reference Range Interpretation Comme nts HBsAB (test code = 0913721397) Negative HBsAb Semi-Quantitative (test code = 8147431067) 0.00 mIU/mL WESLEY (test code = WESLEY) Interpretation: ?Hepatitis B Surface Antibody ? Negative - Patient is considered to be not immune to infection with HBV. ? ? Positive - Anti-HBs detected at greater than or equal to 12 mIU/mL. ?Patient is considered to be immune to infection with HBV. ? [facility] B Surface Cstvlirm7059-11-96 16:37:53* Test Item Value Reference Range Interpretation Comme nts HBsAB (test code = 1736806588) Negative HBsAb Semi-Quantitative (test code = 4024284113) 0.00 mIU/mL WESLEY (test code = WESLEY) Interpretation: ?Hepatitis B Surface Antibody ? Negative - Patient is considered to be not immune to infection with HBV. ? ? Positive - Anti-HBs detected at greater than or equal to 12 mIU/mL. ?Patient is considered to be immune to infection with HBV. ? [facility] HospitalHIV 1/2 Ag-Ab with Zihgok4387-73-03 16:37:47* Test Item Value Reference Range Interpretation Comme [facility] HIV Semi-quantitative (test code = 48930-5) 0.09 Negative WESLEY (test code = WESLEY) Non-reactive for HIV-1 antigen and HIV-1/HIV-2 antibodies. ?No laboratory evidence of HIV infection. ?Repeat in 2-4 weeks if acute HIV infection is suspected. [facility] B Surface Gqbuvbs0218-68-25 16:37:47 * Test Item Value Reference Range Interpretation Comme nts HBsAg Semi-Quantitative (maeve t code = 5195-3) 0.12 Negative [facility] HospitalHIV 1/2 Ag-Ab with Sbccpr5141-04-67 16:37:47* Test Item Value Reference Range Interpretation Comme nts HIV Semi-quantitative (test code = 81693-6) 0.09 Negative WESLEY (test code = WESLEY) Non-reactive for HIV-1 antigen and HIV-1/HIV-2 antibodies. ?No laboratory evidence of HIV infection. ?Repeat in 2-4 weeks if acute HIV infection is suspected. [facility] HospitalHepatitis B Surface Dfuglcm0034-95-13 16:37:47 * Test Item Value Reference Range Interpretation Comme nts HBsAg Semi-Quantitative (maeve t code = 5195-3) 0.12 Negative [facility] HospitalHbc Antibody (IgM & IgG)2024-02-23 16:37:42* Test Item Value Reference Range Interpretation Comme nts HBC (test code = 4329308242) Negative HBC Semi-Quantitative (test code = 6563434769) 3.51 [facility] HospitalHbc Antibody (IgM & IgG)2024-02-23 16:37:42* Test Item Value Reference Range Interpretation Comme nts HBC (test code = 2729333754) Negative HBC Semi-Quantitative (test code = 6051013305) 3.51 [facility] HospitalSedimentation Zoso3644-40-99 13:48:13* Test Item Value Reference Range Interpretation Comme nts ESR (test code = 02256-5) 23 2-30 Lab Interpretation (test cod e = 35465-5) Normal [facility] HospitalSedimentation Rbpj8022-21-04 13:48:13* Test Item Value Reference Range Interpretation Comme nts ESR (test code = 22932-0) 23 2-30 Lab Interpretation (test cod e = 30368-3) Normal [facility] HospitalHepatic Function Panel (29623) (ALB,T.PRO,BILI T,BU/BC,ALT,AST,ALK PHOS)2024-02-22 19:51:55* Test Item Value Reference Range Interpretation Comme nts TOTAL BILI (test code = 6284571516) 1.0 mg/dL 0.1-1.1 BILI UNCON (test code = 9936757035) 0.4 mg/dL 0.1-1.1 BILI CONJ (test code = 6864210321) 0.0 mg/dL 0.0-0.3 T PROTEIN (test code = 8271692888) 8.5 g/dL 6.3-8.2 H ALBUMIN (test code = 1459045506) 4.9 g/dL 3.5-5.0 ALK PHOS (test code = 8442860952) 87 U/L 34-122 Slight hemolysis ALTv (test code = 1742-6) 77 U/L 5-35 H AST(SGOT) (test code = 2654158253) 57 U/L 13-40 H Slight hemolysis Lab Interpretation (test code = 32116-0) Abnormal [facility] Hospital[facility] (ALB,T.PRO,BILI T,BU/BC,ALT,AST,ALK PHOS)2024-02-22 19:51:55* Test Item Value Reference Range Interpretation Comme nts TOTAL BILI (test code = 7816748158) 1.0 mg/dL 0.1-1.1 BILI UNCON (test code = 3204809185) 0.4 mg/dL 0.1-1.1 BILI CONJ (test code = 2497583405) 0.0 mg/dL 0.0-0.3 T PROTEIN (test code = 4472297924) 8.5 g/dL 6.3-8.2 H ALBUMIN (test code = 0959740002) 4.9 g/dL 3.5-5.0 ALK PHOS (test code = 6762225649) 87 U/L 34-122 Slight hemolysis ALTv (test code = 1742-6) 77 U/L 5-35 H AST(SGOT) (test code = 8161059690) 57 U/L 13-40 H Slight hemolysis Lab Interpretation (test code = 67842-9) [facility] [id number] 18:19:37ORDERING PROVIDER: GRAZYNA ELMORE MORRICAL HISTORY: Hematemesis TECHNIQUE: Frontal and lateral views of the Chest. COMPARISON: [facility]Un[facility] 2 [id number] 18:19:37ORDERING PROVIDER: ?COLIN ELMORE MORRICAL HISTORY: Hematemesis TECHNIQUE: Frontal and lateral views of the Chest. [facility] [place]BDOMEN [id number] 17:50:15ORDERING PROVIDER: COLIN RAMESHDEBRA MORRICAL HISTORY: N/v/diarrhea worsening since cholecystectomy EXAM: [...] lesions. ?There is normal corticalthickness, contour and echogenicity.[facility] ABDOMEN [id number] 17:50:15ORDERING PROVIDER: COLIN ELMORE MORRICAL HISTORY: N/v/diarrhea [...] lesions. ?There is normal corticalthickness, contour and ech[facility] [id number] 15:52:12* Test Item Value Reference Range Interpretation Comme nts TROPONIN I (test code = 3988791533) 0.006 ng/mL <=0.034 WESLEY (test code = [...] of biotin. Lab Interpretation (test code = 63269-5) [facility] [id number] 15:52:12* Test Item Value Reference Range Interpretation Comme nts TROPONIN I (test code = 7449311512) 0.006 ng/mL <=0.034 WESLEY (test code = [...] of biotin. Lab Interpretation (test code = 89055-7) [facility], [id number] 15:52:07* Test Item Value Reference Range Interpretation Comme nts PREG SERUM (test code = 2007682225) Negative WESLEY (test code = WESLEY) Less than 10 IU/L. ?If low titer or ectopic is suspected, resubmit specimen in 48-72 hours. [facility], [id number] 15:52:07* Test Item Value Reference Range Interpretation Comme nts PREG SERUM (test code = 7320424642) Negative WESLEY (test code = WESLEY) Less than 10 IU/L. ?If low titer or ectopic is suspected, resubmit specimen in 48-72 hours. [facility] 15:40:04* Test Item Value Reference Range Interpretation Comme nts LIPASE (test code = 8783366974) 69 U/L 0-220 Lab Interpretation (test cod e = 80342-7) [facility] 15:40:04* Test Item Value Reference Range Interpretation Comme nts LIPASE (test code = 0194452216) 69 U/L 0-220 Lab Interpretation (test cod e = 30828-4) [facility]OLIC PANEL ([id number])2024-02-22 15:40:03* Test Item Value Reference Range Interpretation Comme nts NA (test code = 6076115552) 137 mmol/L 135-145 K (test code = 9231769218) 3.9 mmol/L 3.5-5.0 Slight hemolysis CL (test code = 4884256850) 102 mmol/L 98-108 CO2 TOTAL (test code = 2795904335) 24 mmol/L 23-31 AGAP (test code = 4104915370) 11 2-16 BUN (test code = 6621148736) 9 mg/dL 7-23 Slight hemolysis GLUCOSE (test code = 0476798986) 94 mg/dL 70-110 CREATININE (test code = 2160-0) 0.70 mg/dL 0.50-1.04 TOTAL BILI (test code = 5076536440) 1.0 mg/dL 0.1-1.1 CALCIUM (test code = 3109775325) 9.3 mg/dL 8.6-10.6 T PROTEIN (test code = 9959377368) 8.4 g/dL 6.3-8.2 H ALBUMIN (test code = 1004632268) 5.0 g/dL 3.5-5.0 ALK PHOS (test code = 2395342317) 79 U/L 34-122 Slight hemolysis ALTv (test code = 1742-6) 74 U/L 5-35 H AST(SGOT) (test code = 0600541836) 57 U/L 13-40 H Slight hemolysis eGFR (test code = 94279-3) 120.2 mL/min/1.73m2 CKD-EPI eGFR (2020). Assuming creatinine has been stable day-to-day for at least three months, the eGFR indicates Category G1 (>= 90 mL/min/1.73 m2) Lab Interpretation (test code = 24123-8) [facility] ([id number])2024-02-22 15:40:03* Test Item Value Reference Range Interpretation Comme nts NA (test code = 0976491721) 137 mmol/L 135-145 K (test code = 3462847436) 3.9 mmol/L 3.5-5.0 Slight hemolysis CL (test code = 7326290170) 102 mmol/L 98-108 CO2 TOTAL (test code = 9316736144) 24 mmol/L 23-31 AGAP (test code = 4621427671) 11 2-16 BUN (test code = 6680940612) 9 mg/dL 7-23 Slight hemolysis GLUCOSE (test code = 4343847004) 94 mg/dL 70-110 CREATININE (test code = 2160-0) 0.70 mg/dL 0.50-1.04 TOTAL BILI (test code = 4960583879) 1.0 mg/dL 0.1-1.1 CALCIUM (test code = 9870578216) 9.3 mg/dL 8.6-10.6 T PROTEIN (test code = 5778412173) 8.4 g/dL 6.3-8.2 H ALBUMIN (test code = 4654258294) 5.0 g/dL 3.5-5.0 ALK PHOS (test code = 6199742664) 79 U/L 34-122 Slight hemolysis ALTv (test code = 1742-6) 74 U/L 5-35 H AST(SGOT) (test code = 2468827088) 57 U/L 13-40 H Slight hemolysis eGFR (test code = 15212-1) 120.2 mL/min/1.73m2 CKD-EPI eGFR (2020). Assuming creatinine has been stable day-to-day for at least three months, the eGFR indicates Category G1 (>= 90 mL/min/1.73 m2) Lab Interpretation (test code = 95697-2) Abnormal [facility] WITH [id number] 15:35:41* Test Item Value Reference Range Interpretation [...] 34.3 g/dL 31.6-35.1 RDW-SD (test code = 94649-9) 41.3 fL 39.0-49.9 RDW-CV (test code = 788-0) 13.2 % 12.0-15.5 PLT (test code = 777-3) 329 166-358 MPV (test code = 99438-0) 9.9 fL 9.5-12.9 NRBC/100 WBC (test code = 1050503462) 0.0 0.0-10.0 NRBC x10^3 (test code = 1548514057) See_Comment [Automated messa ge] The system which generated this result transmitted reference range: 10*3/?L. The reference range was not used to interpret this result as normal/abnormal. GRAN MAT (NEUT) % (test code = 770-8) 66.5 % IMM GRAN % (test code = 2973779528) 0.30 % LYMPH % (test code = 736-9) 26.8 % MONO % (test code = 5905-5) 3.5 % EOS % (test code = 713-8) 2.3 % BASO % (test code = 706-2) 0.6 % GRAN MAT x10^3(ANC) (test code = 1937907375) 5.71 10*3/uL 1.88-7.09 IMM GRAN x10^3 (test code = 0180409028) 0.03 10*3/uL 0.00-0.06 LYMPH x10^3 (test code = 731-0) 2.30 10*3/uL 1.32-3.29 MONO x10^3 (test code = 742-7) 0.30 10*3/uL 0.33-0.92 L EOS x10^3 (test code = 711-2) 0.20 10*3/uL 0.03-0.39 BASO x10^3 (test code = 704-7) 0.05 10*3/uL 0.01-0.07 Lab Interpretation (test code = 55533-8) Abnormal [facility] WITH [id number] 15:35:41* Test Item Value Reference Range Interpretation [...] 34.3 g/dL 31.6-35.1 RDW-SD (test code = 23091-8) 41.3 fL 39.0-49.9 RDW-CV (test code = 788-0) 13.2 % 12.0-15.5 PLT (test code = 777-3) 329 166-358 MPV (test code = 80767-8) 9.9 fL 9.5-12.9 NRBC/100 WBC (test code = 6422776188) 0.0 0.0-10.0 NRBC x10^3 (test code = 3750431142) See_Comment [Automated messa ge] The system which generated this result transmitted reference range: 10*3/?L. The reference range was not used to interpret this result as normal/abnormal. GRAN MAT (NEUT) % (test code = 770-8) 66.5 % IMM GRAN % (test code = 0358727084) 0.30 % LYMPH % (test code = 736-9) 26.8 % MONO % (test code = 5905-5) 3.5 % EOS % (test code = 713-8) 2.3 % BASO % (test code = 706-2) 0.6 % GRAN MAT x10^3(ANC) (test code = 1157659857) 5.71 10*3/uL 1.88-7.09 IMM GRAN x10^3 (test code = 9699201069) 0.03 10*3/uL 0.00-0.06 LYMPH x10^3 (test code = 731-0) 2.30 10*3/uL 1.32-3.29 MONO x10^3 (test code = 742-7) 0.30 10*3/uL 0.33-0.92 L EOS x10^3 (test code = 711-2) 0.20 10*3/uL 0.03-0.39 BASO x10^3 (test code = 704-7) 0.05 10*3/uL 0.01-0.07 Lab Interpretation (test code = 13542-0) [facility] ([id number])2023-05-19 17:55:27* Test Item Value Reference Range Interpretation Comme nts NA (test code = 5913218689) 138 mmol/L 135-145 K (test code = 5936730413) 3.8 mmol/L 3.5-5.0 CL (test code = 7279208650) 107 mmol/L 98-108 CO2 TOTAL (test code = 1859686201) 21 mmol/L 23-31 L AGAP (test code = 4439898486) 10 2-16 BUN (test code = 2281031263) 8 mg/dL 7-23 GLUCOSE (test code = 0152359641) 89 mg/dL 70-110 CREATININE (test code = 2778335842) 0.69 mg/dL 0.50-1.04 TOTAL BILI (test code = 6757260190) 0.7 mg/dL 0.1-1.1 CALCIUM (test code = 9166416374) 8.3 mg/dL 8.6-10.6 L T PROTEIN (test code = 9217269129) 7.3 g/dL 6.3-8.2 ALBUMIN (test code = 2153515803) 4.1 g/dL 3.5-5.0 ALK PHOS (test code = 8956919533) 107 U/L 34-122 ALTv (test code = 1742-6) 75 U/L 5-35 H AST(SGOT) (test code = 2427536380) 42 U/L 13-40 H eGFR (test code = 58366-6) 121.4 mL/min/1.73m2 CKD-EPI eGFR (2020). Assuming creatinine has been stable day-to-day for at least three months, the eGFR indicates Category G1 (>= 90 mL/min/1.73 m2) Lab Interpretation (test code = 65887-0) [facility] 16:39:24* Test Item Value Reference Range Interpretation Comme nts LIPASE (test code = 6971938504) 40 U/L 0-220 Lab Interpretation (test cod e = 49955-2) [facility] [id number] 16:27:28EXAM: CT ABDOMEN PELVIS W CONTRAST HISTORY: [...] hypodensity isseen within the right gluteal soft tissue.[facility] CBC WITH [id number] 16:14:18* Test Item Value Reference Range Interpretation Comme nts WBC (test code = 6690-2) 6.32 See_Comment [Automated messa ge] The system which generated this result transmitted reference range: 4.30 - 11.10 10*3/?L. The reference range was not used to interpret this result as normal/abnormal. RBC (test code = 789-8) 4.61 See_Comment [Automated [employer] System[employer] ge] The system which generated this result [...] 34.1 g/dL 31.6-35.1 RDW-SD (test code = 87629-3) 42.0 fL 39.0-49.9 RDW-CV (test code = 788-0) 13.0 % 12.0-15.5 PLT (test code = 777-3) 369 See_Comment H [Automated messa ge] The system which generated this result transmitted reference range: 166 - 358 10*3/?L. The reference range was not used to interpret this result as normal/abnormal. MPV (test code = 92535-5) 9.9 fL 9.5-12.9 NRBC/100 WBC (test code = 4384356018) 0.0 See_Comment [Automated Numecent ssage] The system which generated this result transmitted reference range: 0.0 - 10.0 /100 WBCs. The reference range was not used to interpret this result as normal/abnormal. NRBC x10^3 (test code = 9234478331) See_Comment [Automated messa ge] The system which generated this result transmitted reference range: 10*3/?L. The reference range was not used to interpret this result as normal/abnormal. GRAN MAT (NEUT) % (test code = 770-8) 64.8 % IMM GRAN % (test code = 9584630250) 0.50 % LYMPH % (test code = 736-9) 25.3 % MONO % (test code = 5905-5) 4.1 % EOS % (test code = 713-8) 4.7 % BASO % (test code = 706-2) 0.6 % GRAN MAT x10^3(ANC) (test code = 1017264304) 4.09 10*3/uL 1.88-7.09 IMM GRAN x10^3 (test code = 7132715199) 0.03 10*3/uL 0.00-0.06 LYMPH x10^3 (test code = 731-0) 1.60 10*3/uL 1.32-3.29 MONO x10^3 (test code = 742-7) 0.26 10*3/uL 0.33-0.92 L EOS x10^3 (test code = 711-2) 0.30 10*3/uL 0.03-0.39 BASO x10^3 (test code = 704-7) 0.04 10*3/uL 0.01-0.07 Lab Interpretation (test code = 32726-6) [facility]OW[facility] [id number] 15:31:00* Test Item Value Reference Range Interpretation Comme nts POCT PREG (test code = 1605) Negative On board controls acceptable with C Line (test code = 3574) Yes POCT PREG LOT # (test code = 3572) [id number] POCT PREG TEST DATE ( test code = 3576) 2024-07-21 Lab Interpretation (test cod e = 73313-8) Normal [facility] WITH [id number] 04:28:47* Test Item Value Reference Range Interpretation [...] 34.0 g/dL 31.6-35.1 RDW-SD (test code = 68009-2) 40.3 fL 39.0-49.9 RDW-CV (test code = 788-0) 13.1 % 12.0-15.5 PLT (test code = 777-3) 307 See_Comment [Automated [employer] ge] The system which generated this result transmitted reference range: 166 - 358 10*3/?L. The reference range was not used to interpret this result as normal/abnormal. MPV (test code = 21658-4) 11.0 fL 9.5-12.9 NRBC/100 WBC (test code = 3403450569) 0.0 See_Comment [Automated Numecent ssage] The system which generated this result transmitted reference range: 0.0 - 10.0 /100 WBCs. The reference range was not used to interpret this result as normal/abnormal. NRBC x10^3 (test code = 2364028208) See_Comment [Automated [employer] ge] The system which generated this result transmitted reference range: 10*3/?L. The reference range was not used to interpret this result as normal/abnormal. GRAN MAT (NEUT) % (test code = 770-8) 52.0 % IMM GRAN % (test code = 0977666671) 0.20 % LYMPH % (test code = 736-9) 38.0 % MONO % (test code = 5905-5) 4.6 % EOS % (test code = 713-8) 4.6 % BASO % (test code = 706-2) 0.6 % GRAN MAT x10^3(ANC) (test code = 1605854579) 2.84 10*3/uL 1.88-7.09 IMM GRAN x10^3 (test code = 1657168035) 0.00-0.06 LYMPH x10^3 (test code = 731-0) 2.07 10*3/uL 1.32-3.29 MONO x10^3 (test code = 742-7) 0.25 10*3/uL 0.33-0.92 L EOS x10^3 (test code = 711-2) 0.25 10*3/uL 0.03-0.39 BASO x10^3 (test code = 704-7) 0.03 10*3/uL 0.01-0.07 Lab Interpretation (test code = 10950-1) [facility] (74448)2023-01-12 04:12:43* Test Item Value Reference Range Interpretation Comme nts NA (test code = 6865913166) 137 mmol/L 135-145 K (test code = 2717920847) 3.4 mmol/L 3.5-5.0 L CL (test code = 8927742832) 104 mmol/L 98-108 CO2 TOTAL (test code = 1041367605) 24 mmol/L 23-31 AGAP (test code = 3598791548) 9 2-16 BUN (test code = 9234128505) 2 mg/dL 7-23 L GLUCOSE (test code = 7502624964) 92 mg/dL 70-110 CREATININE (test code = 8014660816) 0.80 mg/dL 0.50-1.04 TOTAL BILI (test code = 1959447049) 0.4 mg/dL 0.1-1.1 CALCIUM (test code = 3269643643) 8.4 mg/dL 8.6-10.6 L T PROTEIN (test code = 2303834002) 6.3 g/dL 6.3-8.2 ALBUMIN (test code = 8366099773) 3.7 g/dL 3.5-5.0 ALK PHOS (test code = 9909492974) 87 U/L 34-122 ALTv (test code = 1742-6) 27 U/L 5-35 AST(SGOT) (test code = 4355383895) 33 U/L 13-40 eGFR (test code = 5959406235) 86.0 mL/min/1.73m2 WESLEY (test code = WESLEY) [...] imaging tests). Lab Interpretation (test code = 46463-4) [facility] METABOLIC PANEL (26983)2023-01-12 04:12:43* Test Item Value Reference Range Interpretation Comme nts NA (test code = 3296611665) 137 mmol/L 135-145 K (test code = 4474536528) 3.4 mmol/L 3.5-5.0 L CL (test code = 4770106764) 104 mmol/L 98-108 CO2 TOTAL (test code = 9541818884) 24 mmol/L 23-31 AGAP (test code = 0414584837) 9 2-16 BUN (test code = 0514156263) 2 mg/dL 7-23 L GLUCOSE (test code = 6293716742) 92 mg/dL 70-110 CREATININE (test code = 8014605040) 0.80 mg/dL 0.50-1.04 TOTAL BILI (test code = 7160059136) 0.4 mg/dL 0.1-1.1 CALCIUM (test code = 7702459003) 8.4 mg/dL 8.6-10.6 L T PROTEIN (test code = 2908292547) 6.3 g/dL 6.3-8.2 ALBUMIN (test code = 3868001732) 3.7 g/dL 3.5-5.0 ALK PHOS (test code = 3098042471) 87 U/L 34-122 ALTv (test code = 1742-6) 27 U/L 5-35 AST(SGOT) (test code = 4573480227) 33 U/L 13-40 eGFR (test code = 1212269374) 86.0 mL/min/1.73m2 WESLEY (test code = WESLEY) [...] imaging tests). Lab Interpretation (test code = 57718-0) Abnormal [facility] ([facility]ANTITAT[facility])2023-01-12 04:07:04 BETA HCG<2.39Non- female and male patients: <5 mIU/mL01/11/2023 11:07 PM [facility] Gestational Age ?Range (mIU/mL) 1-10 ?Weeks ?55-77445529-90 Weeks ?74880-34203257-93 Weeks ?1095-55456862-40 Weeks ?1531-399410 Biotin has been reported to cause a negative bias, interpret results relative to patient's use of biotin. Gestational Age ?Range (mIU/mL) 1-10 ?Weeks ?76-33942375-69 Weeks ?98825-28895924-80 Weeks ?4804-49434286-89 Weeks?1531-244266 Biotin has been reported to cause a negative bias, interpret results relative to patient's use of biotin. Gestational Age ?Range (mIU/mL) 1-10 ?Weeks ?33-14849941-41 Weeks ?39834-37997797-80 Weeks ?2808-68737107-78 Weeks ?1531-921789 Biotin has been reported to cause a negative bias, interpretresults relative to patient's use of biotin.[facility] (QUANTITATIVE)2023-01-12 04:07:04BETA HCG<2.39Non- female and male patients: <5 mIU/mL01/11/2023 11:07 PM [facility] Gestational Age ?Range (mIU/mL) 1-10 ?Weeks ?93-73464242-29 Weeks ?44588-14010342-47 Weeks ?4902-41437873-44 Weeks ?1531-957550 Biotin has been reported to cause a negative bias, interpret results relative topatient's use of biotin. Gestational Age ?Range (mIU/mL) 1-10 ?Weeks ?56-11930711-97 Weeks ?35912-83591874-82 Weeks ?8474-84955000-78 Weeks?1531-659049 Biotin has been reported to cause a negative bias, interpret results relative to patient's use of biotin. Gestational Age ?Range (mIU/mL) 1-10 ?Weeks ?43-48530020-01 Weeks ?21198-33518135-06 Weeks ?5873-24179361-58 Weeks ?1531-421189 Biotin has been reported to cause a negative bias, interpretresults relative to patient's use of biotin.[facility] 03:22:58* Test Item Value Reference Range Interpretation Comme nts LIPASE (test code = 9543147980) 41 U/L 0-220 Lab Interpretation (test cod e = 43573-9) [facility] 03:22:58* Test Item Value Reference Range Interpretation Comme nts LIPASE (test code = 1902692715) 41 U/L 0-220 Lab Interpretation (test cod e = 66954-6) Normal [facility] [id number] 03:02:00* Test Item Value Reference Range Interpretation Comme nts POCT PREG (test code = 1605) Negative On board controls acceptable with C Line (test code = 3574) Yes POCT PREG LOT # (test code = 3575) [id number] POCT PREG TEST DATE ( test code = 3576) 05/15/2024 Lab Interpretation (test cod e = 97781-4) Normal [facility] [id number] 03:02:00* Test Item Value Reference Range Interpretation Comme nts POCT PREG (test code = 1605) Negative On board controls acceptable with C Line (test code = 3574) Yes POCT PREG LOT # (test code = 3575) [id number] POCT PREG TEST DATE ( test code = 3576) 05/15/2024 Lab Interpretation (test cod e = 34708-7) [facility], [id number] 00:23:34* Test Item Value Reference Range Interpretation Comme nts PREG SERUM (test code = 8502542304) Negative WESLEY (test code = WESLEY) Less than 10 IU/L. ?If low titer or ectopic is suspected, resubmit specimen in 48-72 hours[facility] MET[facility]OLIC PANEL (40279)2022-07-31 23:58:12* Test Item Value Reference Range Interpretation Comme nts NA (test code = 3259319827) 140 mmol/L 135-145 K (test code = 4425492057) 3.6 mmol/L 3.5-5.0 CL (test code = 0526237523) 106 mmol/L 98-108 CO2 TOTAL (test code = 1463424230) 21 mmol/L 23-31 L AGAP (test code = 5269607849) 13 2-16 BUN (test code = 1513636813) 8 mg/dL 7-23 GLUCOSE (test code = 6321580712) 90 mg/dL 70-110 CREATININE (test code = 0159452230) 0.90 mg/dL 0.50-1.04 TOTAL BILI (test code = 9389703576) 0.5 mg/dL 0.1-1.1 CALCIUM (test code = 2763453113) 9.0 mg/dL 8.6-10.6 T PROTEIN (test code = 6897218610) 7.8 g/dL 6.3-8.2 ALBUMIN (test code = 5053572139) 4.6 g/dL 3.5-5.0 ALK PHOS (test code = 3097640305) 63 U/L 34-122 ALTv (test code = 1742-6) 23 U/L 5-35 AST(SGOT) (test code = 9375915793) 27 U/L 13-40 eGFR (test code = 3637188463) 75.1 mL/min/1.73m2 WESLEY (test code = WESLEY) [...] imaging tests). Lab Interpretation (test code = 58109-0) [facility] 23:57:32* Test Item Value Reference Range Interpretation Comme nts LIPASE (test code = 1558741403) 55 U/L 0-220 Lab Interpretation (test cod e = 66115-9) Normal [facility] WITH [id number] 23:47:31* Test Item Value Reference Range Interpretation [...] 32.6 g/dL 31.6-35.1 RDW-SD (test code = 01826-7) 42.5 fL 39.0-49.9 RDW-CV (test code = 788-0) 13.0 % 12.0-15.5 PLT (test code = 777-3) 339 See_Comment [Automated messa ge] The system which generated this result transmitted reference range: 166 - 358 10*3/?L. The reference range was not used to interpret this result as normal/abnormal. MPV (test code = 62686-9) 9.4 fL 9.5-12.9 L NRBC/100 WBC (test code = 2752483137) 0.0 See_Comment [Automated me ssage] The system which generated this result transmitted reference range: 0.0 - 10.0 /100 WBCs. The reference range was not used to interpret this result as normal/abnormal. NRBC x10^3 (test code = 0012005338) See_Comment [Automated messa ge] The system which generated this result transmitted reference range: 10*3/?L. The reference range was not used to interpret this result as normal/abnormal. GRAN MAT (NEUT) % (test code = 770-8) 51.2 % IMM GRAN % (test code = 8533922180) 0.20 % LYMPH % (test code = 736-9) 36.5 % MONO % (test code = 5905-5) 5.7 % EOS % (test code = 713-8) 5.9 % BASO % (test code = 706-2) 0.5 % GRAN MAT x10^3(ANC) (test code = 4353336077) 2.89 10*3/uL 1.88-7.09 IMM GRAN x10^3 (test code = 6462579815) 0.00-0.06 LYMPH x10^3 (test code = 731-0) 2.06 10*3/uL 1.32-3.29 MONO x10^3 (test code = 742-7) 0.32 10*3/uL 0.33-0.92 L EOS x10^3 (test code = 711-2) 0.33 10*3/uL 0.03-0.39 BASO x10^3 (test code = 704-7) 0.03 10*3/uL 0.01-0.07 Lab Interpretation (test code = 21183-2) [facility] [id number] 16:14:38* Test Item Value Reference Range Interpretation Comme nts POCT Molecular Strep (test c ode = 37598-9) Negative Negative Lab Interpretation (test cod e = 72554-6) [facility]OLIC PAN[facility] (13042)2022-05-05 19:35:37* Test Item Value Reference Range Interpretation Comme nts NA (test code = 5232556947) 139 mmol/L 135-145 K (test code = 2256515528) 4.4 mmol/L 3.5-5.0 CL (test code = 8167899641) 104 mmol/L 98-108 CO2 TOTAL (test code = 1147229943) 22 mmol/L 23-31 L AGAP (test code = 0328349417) 2-16 BUN (test code = 3341371471) 11 mg/dL 7-23 GLUCOSE (test code = 6535434480) 95 mg/dL 70-110 CREATININE (test code = 5539822407) 0.71 mg/dL 0.50-1.04 TOTAL BILI (test code = 3829970861) 0.4 mg/dL 0.1-1.1 CALCIUM (test code = 9568593768) 9.1 mg/dL 8.6-10.6 T PROTEIN (test code = 9553123144) 7.9 g/dL 6.3-8.2 ALBUMIN (test code = 4709655135) 4.7 g/dL 3.5-5.0 ALK PHOS (test code = 5565529055) 114 U/L 34-122 ALTv (test code = 1742-6) 21 U/L 5-35 AST(SGOT) (test code = 4023416785) 21 U/L 13-40 eGFR (test code = 6132830124) mL/min/1.73m2 WESLEY (test code = WESLEY) Association [...] imaging tests). Lab Interpretation (test code = 35673-2) Abnormal [facility] WITH [id number] 19:25:37* Test Item Value Reference Range Interpretation Comme nts WBC (test code = 6690-2) See_Comment [Automated [employer] ge] The system which generated this result transmitted reference range: 4.30 - 11.10 10*3/?L. The reference range was not used to interpret this result as normal/abnormal. RBC (test code = 789-8) See_Comment [Automated [employer] ge] The system which generated this result [...] 32.9 g/dL 31.6-35.1 RDW-SD (test code = 16476-4) 41.7 fL 39.0-49.9 RDW-CV (test code = 788-0) 12.7 % 12.0-15.5 PLT (test code = 777-3) See_Comment H [Automated [employer]] The system which generated this result transmitted reference range: 166 - 358 10*3/?L. The reference range was not used to interpret this result as normal/abnormal. MPV (test code = 72558-9) 8.8 fL 9.5-12.9 L NRBC/100 WBC (test code = [id number]) See_Comment [Automated [employer]] The system which generated this result transmitted reference range: 0.0 - 10.0 /100 WBCs. The reference range was not used to interpret this result as normal/abnormal. NRBC x10^3 (test code = 6639987133) See_Comment [Automated messa ge] The system which generated this result transmitted reference range: 10*3/?L. The reference range was not used to interpret this result as normal/abnormal. GRAN MAT (NEUT) % (test code = 770-8) 56.1 % IMM GRAN % (test code = 9616813645) 0.40 % LYMPH % (test code = 736-9) 29.9 % MONO % (test code = 5905-5) 5.4 % EOS % (test code = 713-8) 7.8 % BASO % (test code = 706-2) 0.4 % GRAN MAT x10^3(ANC) (test code = 0718738569) 3.75 10*3/uL 1.88-7.09 IMM GRAN x10^3 (test code = 7809556579) 0.03 10*3/uL 0.00-0.06 LYMPH x10^3 (test code = 731-0) 2.00 10*3/uL 1.32-3.29 MONO x10^3 (test code = 742-7) 0.36 10*3/uL 0.33-0.92 EOS x10^3 (test code = 711-2) 0.52 10*3/uL 0.03-0.39 H BASO x10^3 (test code = 704-7) 0.03 10*3/uL 0.01-0.07 Lab Interpretation (test code = 07790-9) [id number]* Test Item Value Reference Range Interpretation Comme nts POCT PREG (test code = 1605) negative On board controls acceptable with C Line (test code = 3574) present POCT PREG LOT # (test code = 3575) [id number] POCT PREG TEST DATE ( test code = 3576) 08-11-2023 Lab Interpretation (test cod e = 07875-2) Normal [facility] WITH [id number] 15:21:11* Test Item Value Reference Range Interpretation [...] 33.0 g/dL 31.6-35.1 RDW-SD (test code = 36436-0) 42.6 fL 39.0-49.9 RDW-CV (test code = 788-0) 12.9 % 12.0-15.5 PLT (test code = 777-3) See_Comment H [Automated messa ge] The system which generated this result transmitted reference range: 166 - 358 10*3/?L. The reference range was not used to interpret this result as normal/abnormal. MPV (test code = 33328-0) 9.1 fL 9.5-12.9 L NRBC/100 WBC (test code = 9081263190) See_Comment [Automated [employer]] The system which generated this result transmitted reference range: 0.0 - 10.0 /100 WBCs. The reference range was not used to interpret this result as normal/abnormal. NRBC x10^3 (test code = 0557612832) See_Comment [Automated messa ge] The system which generated this result transmitted reference range: 10*3/?L. The reference range was not used to interpret this result as normal/abnormal. GRAN MAT (NEUT) % (test code = 770-8) 56.8 % IMM GRAN % (test code = 2648509311) 0.30 % LYMPH % (test code = 736-9) 29.5 % MONO % (test code = 5905-5) 4.3 % EOS % (test code = 713-8) 8.3 % BASO % (test code = 706-2) 0.8 % GRAN MAT x10^3(ANC) (test code = 8174919355) 3.57 10*3/uL 1.88-7.09 IMM GRAN x10^3 (test code = 7902801176) 0.00-0.06 LYMPH x10^3 (test code = 731-0) 1.85 10*3/uL 1.32-3.29 MONO x10^3 (test code = 742-7) 0.27 10*3/uL 0.33-0.92 L EOS x10^3 (test code = 711-2) 0.52 10*3/uL 0.03-0.39 H BASO x10^3 (test code = 704-7) 0.05 10*3/uL 0.01-0.07 Lab Interpretation (test code = 91855-2) [facility]290[facility]-26 15:12:13* Test Item Value Reference Range Interpretation Comme nts NA (test code = 9761022950) 141 mmol/L 135-145 K (test code = 3618637843) 3.4 mmol/L 3.5-5.0 L CL (test code = 4330218986) 104 mmol/L 98-108 CO2 TOTAL (test code = 3664036301) 23 mmol/L 23-31 AGAP (test code = 4993112313) 2-16 BUN (test code = 4334484150) 9 mg/dL 7-23 GLUCOSE (test code = 0602012076) 101 mg/dL 70-110 CREATININE (test code = 7635166757) 0.82 mg/dL 0.50-1.04 TOTAL BILI (test code = 0402420199) 0.7 mg/dL 0.1-1.1 CALCIUM (test code = 5674210103) 9.3 mg/dL 8.6-10.6 T PROTEIN (test code = 7145037706) 8.1 g/dL 6.3-8.2 ALBUMIN (test code = 8075993129) 4.7 g/dL 3.5-5.0 ALK PHOS (test code = 4974678362) 108 U/L 34-122 ALTv (test code = 1742-6) 24 U/L 5-35 AST(SGOT) (test code = 5148954219) 49 U/L 13-40 H eGFR (test code = 7626637088) mL/min/1.73m2 WESLEY (test code = WESLEY) Association [...] imaging tests). Lab Interpretation (test code = 78006-8) Abnormal [facility] [id number] 14:45:00* Test Item Value Reference Range Interpretation Comme nts POCT PREG (test code = 1605) negative On board controls acceptable with C Line (test code = 3574) present POCT PREG LOT # (test code = 3575) [id number] POCT PREG TEST DATE ( test code = 3576) 08/11/2023 Lab Interpretation (test cod e = 40547-1) Normal [facility] [id number] 01:22:00* Test Item Value Reference Range Interpretation Comme nts POCT PREG (test code = 1605) Negative On board controls acceptable with C Line (test code = 3574) Present POCT PREG LOT # (test code = 3575) [id number] POCT PREG TEST DATE ( test code = 3576) 08-11-2023 Lab Interpretation (test cod e = 40801-8) Normal [facility] METABOLIC PANEL (NA, K, CL, CO2, GLUCOSE, BUN, CREATININE, CA)2022-04-07 23:01:10* Test Item Value Reference Range Interpretation Comme [facility] NA (test code = 5592055451) 138 mmol/L 135-145 K (test code = 9941272569) 4.3 mmol/L 3.5-5.0 CL (test code = 3537882808) 107 mmol/L 98-108 CO2 TOTAL (test code = 1883084287) 20 mmol/L 23-31 L AGAP (test code = 3920080922) 2-16 BUN (test code = 5578696755) 9 mg/dL 7-23 GLUCOSE (test code = 4551069141) 204 mg/dL 70-110 H CREATININE (test code = 6070303840) 0.74 mg/dL 0.50-1.04 CALCIUM (test code = 3440795374) 9.1 mg/dL 8.6-10.6 eGFR (test code = 7205147999) mL/min/1.73m2 WESLEY (test code = WESLEY) Association [...] imaging tests). Lab Interpretation (test code = 59300-3) Abnormal [facility] WITH [id number] 22:57:34* Test Item Value Reference Range Interpretation Comme nts WBC (test code = 6690-2) See_Comment [Automated [place]] The system which generated this result transmitted reference range: 4.30 - 11.10 10*3/?L. The reference range was not used to interpret this result as normal/abnormal. RBC (test code = 789-8) See_Comment [Automated [place]] The system which generated this result transmitted [...] 33.5 g/dL 31.6-35.1 RDW-SD (test code = 85066-4) 42.9 fL 39.0-49.9 RDW-CV (test code = 788-0) 13.4 % 12.0-15.5 PLT (test code = 777-3) See_Comment H [Automated [place]] The system which generated this result transmitted reference range: 166 - 358 10*3/?L. The reference range was not used to interpret this result as normal/abnormal. MPV (test code = 77791-0) 8.9 fL 9.5-12.9 L NRBC/100 WBC (test code = 1305385002) See_Comment [Automated me ssage] The system which generated this result transmitted reference range: 0.0 - 10.0 /100 WBCs. The reference range was not used to interpret this result as normal/abnormal. NRBC x10^3 (test code = 7717994681) See_Comment [Automated messa ge] The system which generated this result transmitted reference range: 10*3/?L. The reference range was not used to interpret this result as normal/abnormal. GRAN MAT (NEUT) % (test code = 770-8) 88.7 % IMM GRAN % (test code = 7026594097) 0.70 % LYMPH % (test code = 736-9) 9.4 % MONO % (test code = 5905-5) 0.9 % EOS % (test code = 713-8) 0.1 % BASO % (test code = 706-2) 0.2 % GRAN MAT x10^3(ANC) (test code = 9225833806) 7.81 10*3/uL 1.88-7.09 H IMM GRAN x10^3 (test code = 8834451568) 0.06 10*3/uL 0.00-0.06 LYMPH x10^3 (test code = 731-0) 0.83 10*3/uL 1.32-3.29 L MONO x10^3 (test code = 742-7) 0.08 10*3/uL 0.33-0.92 L EOS x10^3 (test code = 711-2) 0.03-0.39 L BASO x10^3 (test code = 704-7) 0.01-0.07 Lab Interpretation (test code = 61742-5) Abnormal [facility] [id number] 14:07:00* Test Item Value Reference Range Interpretation Comme nts POCT PREG (test code = 1605) negative On board controls acceptable with C Line (test code = 3574) present POCT PREG LOT # (test code = 3575) [id number] POCT PREG TEST DATE ( test code = 3576) 08/11/2023 Lab Interpretation (test cod e = 41236-6) Normal [facility] [id number] 13:52:00* Test Item Value Reference Range Interpretation Comme nts POCT PREG (test code = 1605) negative On board controls acceptable with C Line (test code = 3574) present Lab Interpretation (test cod e = 89346-0) Normal [facility] [id number] 14:59:00* Test Item Value Reference Range Interpretation Comme nts POCT PREG (test code = 1605) negative On board controls acceptable with C Line (test code = 3574) yes POCT PREG LOT # (test code = 3575) [id number] POCT PREG TEST DATE ( test code = 3576) 07/11/2023 Lab Interpretation (test cod e = 58122-2) [facility]. METABOLIC PANEL (65202)2022 17:51:43* Test Item Value Reference Range Interpretation Comme nts NA (test code = 8369742606) 139 mmol/L 135-145 K (test code = 9611651355) 4.1 mmol/L 3.5-5 CL (test code = 1138361809) 104 mmol/L 98-108 CO2 TOTAL (test code = 3706080290) 22 mmol/L 23-31 L AGAP (test code = 6117862946) 2-16 BUN (test code = 9126039366) 7 mg/dL 7-23 GLUCOSE (test code = 7736271766) 114 mg/dL 70-110 H CREATININE (test code = 1244431144) 0.69 mg/dL 0.5-1.04 TOTAL BILI (test code = 8299224036) 0.4 mg/dL 0.1-1.1 CALCIUM (test code = 1961380877) 9.7 mg/dL 8.6-10.6 T PROTEIN (test code = 9556991069) 7.2 g/dL 6.3-8.2 ALBUMIN (test code = 6440155543) 4.6 g/dL 3.5-5 ALK PHOS (test code = 2674943383) 65 U/L 34-122 ALTv (test code = 1742-6) 15 U/L 5-35 AST(SGOT) (test code = 2794394742) 19 U/L 13-40 eGFR (test code = 6222327272) mL/min/1.73m2 WESLEY (test code = WESLEY) Association [...] imaging tests). Lab Interpretation (test code = 68478-5) Abnormal [facility] WITH [id number] 17:40:24* Test Item Value Reference Range Interpretation Comme nts WBC (test code = 6690-2) See_Comment [[employer]] The system which generated this result transmitted reference range: 4.30 - 11.10 10*3/?L. The reference range was not used to interpret this result as normal/abnormal. RBC (test code = 789-8) See_Comment [[employer]] The system which generated this result transmitted [...] 33.3 g/dL 31.6-35.1 RDW-SD (test code = 25681-2) 43.1 fL 39-49.9 RDW-CV (test code = 788-0) 13.2 % 12-15.5 PLT (test code = 777-3) See_Comment [Automated messa ge] The system which generated this result transmitted reference range: 166 - 358 10*3/?L. The reference range was not used to interpret this result as normal/abnormal. MPV (test code = 87163-5) 9.5 fL 9.5-12.9 NRBC/100 WBC (test code = 4763166221) See_Comment [Automated [employer]] The system which generated this result transmitted reference range: 0.0 - 10.0 /100 WBCs. The reference range was not used to interpret this result as normal/abnormal. NRBC x10^3 (test code = 1144159008) See_Comment [Automated messa ge] The system which generated this result transmitted reference range: 10*3/?L. The reference range was not used to interpret this result as normal/abnormal. GRAN MAT (NEUT) % (test code = 770-8) 57.8 % IMM GRAN % (test code = 7844759816) 0.20 % LYMPH % (test code = 736-9) 30.8 % MONO % (test code = 5905-5) 5.1 % EOS % (test code = 713-8) 5.6 % BASO % (test code = 706-2) 0.5 % GRAN MAT x10^3(ANC) (test code = 7467283493) 3.61 10*3/uL 1.88-7.09 IMM GRAN x10^3 (test code = 5671489403) 0-0.06 LYMPH x10^3 (test code = 731-0) 1.92 10*3/uL 1.32-3.29 MONO x10^3 (test code = 742-7) 0.32 10*3/uL 0.33-0.92 L EOS x10^3 (test code = 711-2) 0.35 10*3/uL 0.03-0.39 BASO x10^3 (test code = 704-7) 0.03 10*3/uL 0.01-0.07 Lab Interpretation (test code = 41658-0) Abnormal [facility] [id number] 17:27:00* Test Item Value Reference Range Interpretation Comme nts POCT PREG (test code = 1605) negative On board controls acceptable with C Line (test code = 3574) present POCT PREG LOT # (test code = 3575) [id number] POCT PREG TEST DATE ( test code = 357) Lab Interpretation (test cod e = 78281-5) [facility] 12[facility]45:21* Test Item Value Reference Range Interpretation Comme nts LIPASE (test code = 7153105813) 41 U/L 0-220 Lab Interpretation (test cod e = 64912-1) Normal [facility] [id number] 10:57:00* Test Item Value Reference Range Interpretation Comme nts POCT PREG (test code = 1605) Negative On board controls acceptable with C Line (test code = 3574) Present POCT PREG LOT # (test code = 3575) [id number] POCT PREG TEST DATE ( test code = 3576) 03/12/2023 Lab Interpretation (test cod e = 95080-9) [facility] (NA, K, CL, CO2, GLUCOSE, BUN, CREATININE, CA)2022-01-18 10:56:51* Test Item Value Reference Range Interpretation Comme nts NA (test code = 0529938311) 137 mmol/L 135-145 K (test code = 1190634412) 4.6 mmol/L 3.5-5 Slight hemolysis CL (test code = 6866263578) 108 mmol/L 98-108 CO2 TOTAL (test code = 3548245471) 22 mmol/L 23-31 L AGAP (test code = 5360242613) 2-16 BUN (test code = 6248517035) 11 mg/dL 7-23 Slight hemolysis GLUCOSE (test code = 2319551846) 83 mg/dL 70-110 CREATININE (test code = 9422442583) 0.68 mg/dL 0.5-1.04 CALCIUM (test code = 4082859849) 8.8 mg/dL 8.6-10.6 eGFR (test code = 3067590028) mL/min/1.73m2 WESLEY (test code = WESLEY) Association [...] imaging tests). Lab Interpretation (test code = 10148-7) [facility] (37950[facility] (ALB,T.PRO,BILI T,BU/BC,ALT,AST,ALK PHOS)2022-01-18 10:56:51* Test Item Value Reference Range Interpretation Comme nts TOTAL BILI (test code = 6377460080) 0.6 mg/dL 0.1-1.1 BILI UNCON (test code = 8483570678) 0.1 mg/dL 0.1-1.1 BILI CONJ (test code = 9795546927) 0.0 mg/dL 0-0.3 T PROTEIN (test code = 1997611900) 8.6 g/dL 6.3-8.2 H ALBUMIN (test code = 1397436141) 5.1 g/dL 3.5-5 H ALK PHOS (test code = 6552059962) 79 U/L 34-122 ALTv (test code = 1742-6) 117 U/L 5-35 H AST(SGOT) (test code = 7174981213) 163 U/L 13-40 H Lab Interpretation (test cod e = 57134-3) Abnormal [facility], [id number] 10:54:25* Test Item Value Reference Range Interpretation Comme nts PREG SERUM (test code = 9811007175) Negative WESLEY (test code = WESLEY) Less than 10 IU/L. ?If low titer or ectopic is suspected, resubmit specimen in 48-72 hours. [facility] [id number] 10:40:49* Test Item Value Reference Range Interpretation Comme nts WBC (test code = 6690-2) See_Comment [Automated [employer] [place]] The system which generated this result transmitted reference range: 4.30 - 11.10 10*3/?L. The reference range was not used to interpret this result as normal/abnormal. RBC (test code = 789-8) See_Comment [Automated [employer]] The system which generated this result [...] 33.6 g/dL 31.6-35.1 RDW-SD (test code = 37231-5) 45.3 fL 39-49.9 RDW-CV (test code = 788-0) 14.5 % 12-15.5 PLT (test code = 777-3) See_Comment [Automated messa ge] The system which generated this result transmitted reference range: 166 - 358 10*3/?L. The reference range was not used to interpret this result as normal/abnormal. MPV (test code = 97829-1) 9.5 fL 9.5-12.9 NRBC/100 WBC (test code = 4018476148) See_Comment [Automated [employer]] The system which generated this result transmitted reference range: 0.0 - 10.0 /100 WBCs. The reference range was not used to interpret this result as normal/abnormal. NRBC x10^3 (test code = 2762743749) See_Comment [Automated [employer]] The system which generated this result transmitted reference range: 10*3/?L. The reference range was not used to interpret this result as normal/abnormal. GRAN MAT (NEUT) % (test code = 770-8) 47.6 % IMM GRAN % (test code = 6795057100) 0.60 % LYMPH % (test code = 736-9) 39.9 % MONO % (test code = 5905-5) 5.9 % EOS % (test code = 713-8) 5.3 % BASO % (test code = 706-2) 0.7 % GRAN MAT x10^3(ANC) (test code = 4313362192) 4.45 10*3/uL 1.88-7.09 IMM GRAN x10^3 (test code = 6056805422) 0.06 10*3/uL 0-0.06 LYMPH x10^3 (test code = 731-0) 3.74 10*3/uL 1.32-3.29 H MONO x10^3 (test code = 742-7) 0.55 10*3/uL 0.33-0.92 EOS x10^3 (test code = 711-2) 0.50 10*3/uL 0.03-0.39 H BASO x10^3 (test code = 704-7) 0.07 10*3/uL 0.01-0.07 Lab Interpretation (test code = 30977-8) Abnormal [facility] [id number] 18:31:00* Test Item Value Reference Range Interpretation Comme nts POCT PREG (test code = 1605) Negative On board controls acceptable with C Line (test code = 3574) Yes POCT PREG LOT # (test code = 3575) POCT PREG TEST DATE ( test code = 3576) [facility] URINALYSIS W/O SPECIFIC [id number] 18:31:00* Test Item Value Reference Range Interpretation [...] = 3257) Trace Negative - Negati ve [facility] Consult Notes Date/Time Note Provider [...] [facility] ESOPHAGOGASTRODUODENOSCOPY Upper [...] I agree with resident's note as written. [facility] 2024-02-26 10:25:08 Associated Order(s): CONSULT GASTROENTEROLOGY Department [...] at 02/26/24 0425 1,000 mL at 02/26/24 042 LORazepam (ATIVAN) injection 0.5 mg 0.5 mg [...] Friends and Family: Not on file Attends [employer] Services: Not on file Active Member of [...] of cholecystectomy Elevated transaminases, improving Hyperbilirubinemia Natanael Nelia Dyson is a 29 year old female [...] and flexible sigmoidoscopy tomorrow. JAS BUENROSTRO MD TRADITIONAL [facility] PRACTITIONER, DIVISION OF GASTROENTEROLOGY AND HEPATOLOGY [facility]. [facility] 2023-01-12 00:12:43 Associated Order(s): CONSULT GENERAL SURGERY [...] symptomatic cholelithiasis 1.5 months ago at OSH ([place]). Pt states that she has had persistent RUQ pain with nausea and po intolerance along with intermittent chills and vomiting since surgery. Was seen by PCP and instructed to come to [facility] ED for further evaluation. [...] [facility] Family History: [...] skin once every month. 1 mL 3 Pqtnvsidbg-Hkrrcydlymczp-Ljyu (FIORICET) 50-300-40 mg per capsule Take 1 [...] symptomatic cholelithiasis 1.5 months ago at OSH ([place]). Plan: Admission to [facility] service Consult IR for percutaneous [...] pain, nausea, anorexia since lap pasquale at [facility] on 12/01/22 with noted venous [...] - Replete hypokalemia Mirella Vergara MD, PhD Retail Coverage Merchandiser Trauma, Acute Care Surgery, and Surgical Critical Care In-house Pager: [phone] [facility] - Health History and [...] migraine. She was taken to ED in [place] after syncopal episode and was directed to return to [facility]. Bloody BM 3-4 days ago. Reports had exam for internal and external hemorrhoids in [place] - no hemorrhoids. Tried bentyl, pepcid, famotidine without success. Oral zofran does not help either. States that zofran, phenergan, tigan has not helped completely. Morphine has made it tolerable. Requesting to have IV benadryl to help her headaches. Patient was recently discharged on 03/05 from [facility] team, during this admission patient presented [...] to continue supportive care - Admit to [facility] - IV PPI BID - monitor for [...] note, patient had been admitted twice to [facility] earlier this month for similar symptoms. However, [facility] was capped at the time of admission. Ba Manuel DO Retail Coverage Merchandiser | Department of Internal Medicine INTERNAL MEDICINE [facility] 2024-03-04 13:22:03 [facility] [...] as diarrhea. Patient was recently admitted to [facility] from 02/21-02/26 for same presentation. Inpatient EGD revealed esophagitis and gastritis with biopsies positive for H. Pylori, bismuth quadruple therapy and PPI BID called in yesterday per GI but patient unable to order picker Patient reports since discharge, her symptoms have not improved. She states that she requested to be discharged after her son got Kawasaki's and she was able to tolerate her pain. Yesterday, she went to order picker the bismuth quadruple therapy but the [...] reports going to her local ED in [place] 2 days ago. She reports getting a [...] Per chart review, patient was admitted to [facility] in January 2023 1.5 month after lpa choley for a gallbladder fossa 2.5 x 2.6 x 4.6 cm fluid collection containing small air foci concerning for abscess. Patient underwent IR guided drainage. Since then patient reports multiple visits to [place] ED for similar symptoms. She reports 40 [...] [facility] ESOPHAGOGASTRODUODENOSCOPY Upper [...] pBNP: - Trop I: - OSH records [place], [place] Operative Note 12/01/22 - venous bleeding from GB bed, Quentin (absorbable hemostat powder) and Surgicel placed [facility] December 01, 2022 11:26am Note Date/Time December 01, 2022 11:26am [facility] NAME: NATANAEL DYSON ADMITTING: Edgar Lora MD ADMIT DATE:12/01/22 ATTENDING: Edgar Lora MD : 1995 ACCOUNT NO:[id number] PATIENT TYPE:ADM IN LOCATION: [facility] Report Status: Signed Date of Procedure: 12/01/22 Surgeon: Edgar Lora MD Date of Service: 12/01/22 Preop diagnosis: Acute cholecystitis and cholelithiasis Postop diagnosis: Same Procedure performed: Laparoscopic cholecystectomy Surgeon: Edgar Lora MD Minister Assistant: Jessica CROOKS Estimated blood loss: Minimal Specimen: [...] patient overnight for observation. - Admit to [facility] for observation - PPI IV BID [...] details. Jose Mandujano MD, MPH Internal Medicine [facility] 2024-02-26 20:55:24 Endoscopy H & P Age: [age] year old Sex: female ASA Class: II Indication: EGD, Flex Sig - epigastric pain and intractable nausea; diarrhea with occasional blood and Fam h/o crohns Family history of Colon Cancer/Polyps: no Blood thinners: None Previous Endoscopy: None Previous Abdominal Surgeries: Cholecystectomy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 meds given per MAR waiting on bed place ment, pt A&Ox4 resp even and unlabored gcs 15 [facility] 2024-02-22 13:45:00 Pt resting comfortably, skin normal warm and dry, resp even and unlabored. VSS. Bed in lowest, locked position, side rails up. Call light within reach. Awaiting results. [facility] 2024-02-22 11:45:00 Pt sitting in bed A&Ox4 , skin normal warm and dry, resp even and unlabored. VSS. Bed in lowest, locked position, side rails up. Call light within reach. Awaiting results. [facility] 2024-02-22 09:45:00 Natanael Dyson is a [...] will continue to monitor. Awaiting further orders. [facility] 2024-02-22 09:31:00 Natanael Dyson is a 29 year old female c/o brayan umbical pain x 1 week. Pain worsening x 4 days. Seen at hospital in [place]. Reports no relief with zofran. Also reports vomiting/diarrhea. Reports blood in stool and emesis. No fever. Denies urinary. Denies . 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 Over a year ago Ms. Akris underwent a cholecystectomy and since then her [...] days ago she presented for evaluation in [place]; she was told that she was dehydrated and would have to see a ginseng farmer; however, she says that she cannot afford this. 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 METABOLIC PANEL (92253) - Abnormal NA 137 135 - 145 [...] LIMITED CBC WITH DIFF COMP. METABOLIC PANEL (10828) LIPASE URINALYSIS TROPONIN I TEST, SERUM O2 [...] User Comments 02/22/24935 Medical Screening Begins ADRIANA PEIDRA -- 02/22/24935 First Provider Evaluation ADRIANA PIEDRA [...] Observation Condition -- Comment Treatment Team: KORI [[id number]] Discharge Medications: Patient's Medications START taking these medications No medications on file CONTINUE taking these medications which have NOT CHANGED ALBUTEROL 90 MCG/ACTUATION INHALER Inhale 2 Puffs every 6 (six) hours as needed for Wheezing or Shortness of Breath. BACLOFEN 10 MG TABLET Take 1 tablet by mouth every 6 (six) hours as needed. EBUYJHEROG-GLVCKJSNLLECB-VXFB (FIORICET) 50-300-40 MG PER CAPSULE Take 1 [...] medications on file Follow-up: - Admitting to [facility] Electronically signed by: Adriana Piedra MD Internal Medicine PGY-3 [place] Team Adriana Piedra MD 02/22/24 1425 Associated [...] persistent vomiting noted after. Case discussed with [facility] team. Plan made to admit for intractable vomiting and persistent abd pain. Pt had recent CT and allergic reaction. Will defer repeat CT to primary team if needed as she will need pre-treatment for allergy Diagnosis: Intractable vomiting Abdominal pain Plan: Admit to Internal Medicine Janett Lou INTERNAL MEDICINE [facility] 2023-08-27 16:08:07 TRANSITIONAL CARE MANAGEMENT ASSESSMENT 08/27/2023 Natanael Dyson [id number] Natanael Dyson is a 28 year old /White female was admitted on 08/23/23 to [facility], [address]. She was discharged on 08/24/23 with [...] it is under the other name Dominick Shayewentangelmarleni 08/23/2023 - 08/24/2023 Neurology/Neurological Surgery (EDILIA 11B). Pt. Access via the AVS page 4 there. Pt. Has gone under this chart Karis with no results found. Gave HIM contact number for further assistance. No linked episodes TCM Fqg-zipu-uj-face outreach documentation: Discharge Assessment Chart Assessed: 08/27/23 [...] 9:30 AM ADC MOBILE MRI 1 (1.5T) [facility] Radiology & Imaging, [facility] [phone] Marlys Odell LVN [facility] 2023-08-26 13:35:01 TRANSITIONAL CARE MANAGEMENT ASSESSMENT 08/26/2023 Natanael Neliaarmando Dyson [id number] Natanael Dyson is a 28 year old /White female was admitted on 08/23/[address] She was discharged on 08/24/23 with discharge disposition of HR- Routine Discharge. Admitting Physician: Roldan Walker Discharge Diagnosis: Cerebrovascular accident (CVA), unspecified mechanism [I63.9] No contact. No linked episodes TCM Klk-qmfa-in-face outreach documentation: Future Appointments: [facility] 2023-05-19 12:16:00 Pt given printed and verbal [...] with steady gait, in no apparent distress. 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 Patient states that she was worked up in [place] ER 2 weeks ago and found nothing wrong, just referred to a GI doctor but she hasn't seen one because she has no insurance. NNE Ruiz RN [facility] 2023-01-16 10:56:45 TRANSITIONAL CARE MANAGEMENT ASSESSMENT 01/16/2023 Natanael Dyson [id number] Natanael Dyson is a 27 year old /White female was admitted on 01/11/[address] She was discharged on 01/15/23 with discharge disposition of HR- Routine Discharge. Admitting Physician: Kun Steele Discharge Diagnosis: Postprocedural intraabdominal abscess [T81.43XA] Pt. Verbalized understanding discharge instructions. Plans to f/u with pcp. Linked Episodes Type: Episode: Status: Noted: Resolved: Last update: Updated by: TRANSITION OF CARE tcm Active 01/16/2023 01/16/2023 10:56 AM Marlys Odell LVN Comments: TCM Dby-jwbr-xt-face outreach documentation: Discharge Assessment Chart Assessed: 01/16/23 [...] with the names or descriptions of any nwqq-orl-ndfllba or supplements you are currently taking?: Yes [...] No Future Appointments: Marlys Odell LVN [facility] 2023-01-15 18:18:34 Patient is cleared for discharge. Problem: Infection Risk Goal: Absence of infection 01/15/20231817 by Vero Crews RN Outcome: Adequate for discharge 01/15/2023 181 by Vero Crews RN Outcome: Adequate for discharge 01/15/2023 1310 by Vero Crews RN Outcome: Progressing as expected Problem: Pain Goal: Control of pain at or below patient's documented comfort goal 01/15/20231817 by Vero Crews RN Outcome: Adequate for discharge 01/15/2023 181 by Vero [...] Crews RN Outcome: Progressing as expected [facility] 2023-01-15 15:08:00 Called outpatient pharmacy and spoke to Maggi. Stated pharmacy will bring patient's medications to her room within 45min to an hour. T Vero Crews RN [facility] 2023-01-15 13:11:00 Problem: Infection Risk Goal: Absence of infection Outcome: Progressing as expected Problem: Pain Goal: Control of pain at or below patient's documented comfort goal Outcome: Progressing as expected Goal: Reduction in pain sensation Outcome: Progressing as expected Problem: Discharge Planning Goal: Adequate for discharge Outcome: Progressing as expected Goal: Effective communication Outcome: Progressing as expected [facility] 2023-01-15 06:25:22 Problem: Infection Risk Goal: Absence of infection Outcome: Progressing as expected Problem: Pain Goal: Control of pain at or below patient's documented comfort goal Outcome: Progressing as expected Goal: Reduction in pain sensation Outcome: Progressing as expected Problem: Discharge Planning Goal: Adequate for discharge Outcome: Progressing as expected Goal: Effective communication Outcome: Progressing as expected [facility] Katy Means RN [facility] 2023-01-14 09:27:52 Problem: Infection Risk Goal: Absence of infection Outcome: Progressing as expected Problem: Pain Goal: Control of pain at or below patient's documented comfort goal Outcome: Progressing as expected Goal: Reduction in pain sensation Outcome: Progressing as expected Problem: Discharge Planning Goal: Adequate for discharge Outcome: Progressing as expected Goal: Effective communication Outcome: Progressing as expected [facility] Charles Win RN [facility] 2023-01-13 22:20:47 Notified MD by bonny due to double dose of Tylenol being given. Per MD Brito no more Tylenol to be given for tonight. [facility] 2023-01-13 21:55:20 Problem: Infection Risk Goal: Absence of infection Outcome: Progressing as expected Problem: Pain Goal: Control of pain at or below patient's documented comfort goal Outcome: Progressing as expected Goal: Reduction in pain sensation Outcome: Progressing as expected Problem: Discharge Planning Goal: Adequate for discharge Outcome: Progressing as expected Goal: Effective communication Outcome: Progressing as expected [facility] [place] 2023-01-13 08:20:43 Problem: Infection Risk Goal: Absence of infection Outcome: Progressing as expected Problem: Pain Goal: Control of pain at or below patient's documented comfort goal Outcome: Progressing as expected Goal: Reduction in pain sensation Outcome: Progressing as expected Problem: Discharge Planning Goal: Adequate for discharge Outcome: Progressing as expected Goal: Effective communication Outcome: Progressing as expected [facility] [place] 2023-01-12 20:10:08 Problem: Infection Risk Goal: Absence of infection Outcome: Progressing as expected Problem: Pain Goal: Control of pain at or below patient's documented comfort goal Outcome: Progressing as expected Goal: Reduction in pain sensation Outcome: Progressing as expected Problem: Discharge Planning Goal: Adequate for discharge Outcome: Progressing as expected Goal: Effective communication Outcome: Progressing as expected [facility] [place] 2023-01-12 09:28:38 Problem: Infection Risk Goal: Absence of infection Outcome: Progressing as expected Problem: Pain Goal: Control of pain at or below patient's documented comfort goal Outcome: Progressing as expected Goal: Reduction in pain sensation Outcome: Progressing as expected Problem: Discharge Planning Goal: Adequate for discharge Outcome: Progressing as expected Goal: Effective communication Outcome: Progressing as expected [facility] 2023-01-12 05:17:00 Problem: Infection Risk Goal: Absence of infection Outcome: Progressing as expected Problem: Pain Goal: Control of pain at or below patient's documented comfort goal Outcome: Progressing as expected Goal: Reduction in pain sensation Outcome: Progressing as expected Problem: Discharge Planning Goal: Adequate for discharge Outcome: Progressing as expected Goal: Effective communication Outcome: Progressing as expected [facility] 2023-01-12 01:43:06 Report to lisy CURRIE on 9C. Pt awaiting transport T Melvin Villegas RN [facility] 2023-01-12 01:10:30 Attempted report, nurse unavailable, left callback number [facility] 2023-01-12 00:24:49 Surgery at bedside [facility] 2023-01-11 23:08:11 made aware of pt increased pain and nausea [facility] 2023-01-11 22:34:[address], warm blanket given [facility] 2023-01-11 22:18:[address] scan [facility] 2023-01-11 21:30:08 Natanael Dyson is a [...] liver. Denies vomiting, denies blood in stool. [facility] 2023-01-11 21:03:38 Natanael Dyson is a 27 year old female here today c/o abdominal pain x 2 days. Pt denies N/V but reports diarrhea. Pt reports "9/10" pain at this time. Pt reports pain travels down right side abdomen. Pt is A&Ox4, NAD Noted. RR even/unlabored. 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 Due to the worsening discomfort patient has, for further evaluation at [facility]. Patient states that during her [...] when she sits up. Patient has discontinued [place] and anxiety medication due to concern for her liver. She is only used a heating pad for her symptoms with minimal improvement. 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 METABOLIC PANEL (59877) TOTAL BETA HCG ASSAY EXTRA TUBE ORANGE EXTRA TUBE LAV EKG: If EKG completed, see Procedure Note. Orders and Treatments: Orders Placed This Encounter Procedures CT ABDOMEN PELVIS W CONTRAST POCT TEST URINALYSIS LIPASE COMP. METABOLIC PANEL (32924) TOTAL BHCG (QUANTITATIVE) Orders Placed This Encounter Medications NaCl 0.9% (NS) bolus infusion 1,000 mL morpHINE (4 mg/mL) injection 4 mg maalox:diphenhydrAMINE:lidocaine 2 % viscous 1:1:1 (FIRST-MOUTHWASH BLM) oral suspension 15 mL ondansetron (ZOFRAN (PF)) injection 4 mg First Provider Eval: ED Events Date/Time Event User Comments 01/11/232104 Medical Screening Begins ZEHRA GARCÍA -- 01/11/232104 First Provider Evaluation ZERHA GARCÍA -- No notes of EC Admission [...] mouth every 6 (six) hours as needed. FZVOJZFZKT-NOUVDTLSOJLAF-DCHY (FIORICET) 50-300-40 MG PER CAPSULE Take 1 [...] in the Gallbladder fossa, post-recent cholecystectomy in [place]. General surgery was consulted and admitted the patient for further workup and management. [facility] 2022-12-03 08:57:03 Patient has an appointment 12/12/22. Blayne Silva RN 12/03/2022 8:57 AM Blayne Silva RN [facility]
--- NOTE | 2024-08-02 02:45 | EDPHYS ---
Physician Documentation [facility] Name: Natanael Dyson Age: 29 yrs Sex: Female : 1995 Arrival Date: 08/02/2024 Time: 02:02 Bed 2 Private MD: ED Physician Brodie Mota HPI: 08/02 02:08 This 29 yrs old Female presents to ER via Unassigned with complaints of Nose sp4 Pain, Headache. 23:10 29-year-old female presents with complaint of nasal pain. Patient was either 07/21/2024 sp4 for complaint of nasal injury. Patient states since then her nasal pain has gotten worse. Patient also reports associated headache. On 07/21/[address] maxillofacial bones without contrast that reported subtle asymmetric irregularity of the right nasal bone without overlying soft tissue swelling. May relate to subtle or remote fracture. There is also chronic leftward septal deviation with quadrangular spur contacting the inferior turbinate prominent the right agar nasi cells. . 23:14 Past medical history also reveals multiple visits total of 105 visits to this emergency sp4 department for multiple prior pain complaints. [facility] reveals multiple prescriptions for tramadol.. . Historical: - Allergies: 02:19 NSAIDS NON STEROIDAL ANTI INFLAMMATORY DRUG; br2 - Immunization history:: Adult Immunizations up to date. - Infectious Disease History:: Denies. - Social history:: Smoking status: Patient denies any tobacco usage or history of. Patient/guardian denies using alcohol, street drugs. - Family history:: not pertinent. ROS: 23:11 Constitutional: Negative for fever, chills, and weight loss, positive for nasal pain sp4 23:11 All other systems are negative, Exam: 23:14 Constitutional: This is a well developed, well nourished patient who is awake, alert, sp4 and in no acute distress. Head/Face: Normocephalic, atraumatic. Eyes: Pupils equal round and reactive to light, extra-ocular motions intact. Lids and lashes normal. Conjunctiva and sclera are not injected. Cornea within normal limits. Periorbital areas with no swelling, redness, or edema. ENT: Nares patent. No nasal discharge, no septal abnormalities noted. Tympanic membranes are normal and external auditory canals are clear. Oropharynx with no redness, swelling, or masses, exudates, or evidence of obstruction, uvula midline. Mucous membranes moist. Neck: Trachea midline, no thyromegaly or masses palpated, and no cervical lymphadenopathy. Supple, full range of motion without nuchal rigidity, or vertebral point tenderness. Chest/axilla: Normal chest wall appearance and motion. Nontender with no deformity. No lesions are appreciated. Cardiovascular: Regular rate and rhythm with a normal S1 and S2. No gallops, murmurs, or rubs. Normal PMI, no JVD. No pulse deficits. Respiratory: Lungs have equal breath sounds bilaterally, clear to auscultation and percussion. No rales, rhonchi or wheezes noted. No increased work of breathing, no retractions or nasal flaring. Abdomen/GI: Soft, with normal bowel sounds. No distension or tympany. No guarding or rebound. No evidence of tenderness throughout. Back: No spinal tenderness. No costovertebral tenderness. Skin: Warm, dry with normal turgor. Normal color with no rashes, no lesions, and no evidence of cellulitis. MS/ Extremity: Pulses equal, no cyanosis. Neurovascular intact. Full, normal range of motion. Neuro: Awake and alert, GCS 15, oriented to person, place, time, and situation. Cranial nerves II-XII grossly intact. Motor strength 5/5 in all extremities. Sensory grossly intact. Psych: Awake, alert, with orientation to person, place and time. Behavior, mood, and affect are within normal limits Vital Signs: 02:16 BP 133 / 73; Pulse 79; Resp 18; Temp 97.4(TE); Pulse Ox 100% on R/A; Weight 68.04 kg; br2 Height 5 ft. 1 in. ; Pain 7/10; 02:16 Body Mass Index 28.34 (68.04 kg, 154.94 cm) br2 02:16 Pain Scale: Adult br2 [place] Coma Score: 23:14 Eye Response: spontaneous(4). Motor Response: obeys commands(6). Verbal Response: sp4 oriented(5). Total: 15. MDM: 02:17 Medical Screening Exam initiated sp4 23:15 Differential diagnosis: nasal fracture, trauma, sinusitis, epistaxis r/t trauma. Data sp4 reviewed: vital signs, nurses notes, old medical records, CT maxillofacial without contrast from 07/21/2024. Consideration of Admission/Observation Escalation of care including admission/observation considered. ED course: Patient states she is allergic to all of NSAIDs. Patient was informed that her CT from 07/21/2024 has revealed signs of remote nasal fracture but no acute fractures. Patient was advised to take Tylenol as needed for headache. Otherwise stable for discharge.. Administered Medications: No medications were administered Disposition: 23:17 Chart complete. sp4 Disposition Summary: 08/02/24 02:45 Discharge Ordered Notes: Location: Home sp4 Problem: new sp4 Symptoms: have improved sp4 Condition: Stable sp4 Diagnosis - Subacute Nasal Injury, Acute Nasal Pain sp4 Followup: sp4 - With: Private Physician - When: 7 - 10 days - Reason: Recheck today's complaints Discharge Instructions: - Discharge Summary Sheet sp4 - Medical Screening Exam sp4 Forms: - Patient Portal Instructions sp4 Signatures: Brodie Mota MD MD sp4 Sabine Arguelles RN RN br2
--- NOTE | 2024-08-02 02:45 | ER ---
Nurse's Notes [facility] Name: Natanael Dyson Age: 29 yrs Sex: Female : 1995 Arrival Date: 08/02/2024 Time: 02:02 Bed 2 Private MD: Diagnosis: Subacute Nasal Injury, Acute Nasal Pain Presentation: 08/02 02:16 Chief complaint: Patient states: PT STATES HER AUTISTIC SON KICKED HER ON THE NOSE LAST br2 WEEK. PT IS C/O PAIN. NO OBVIOUS DEFORMITY. Coronavirus screen: Client denies travel out of the [place] in the last 14 days. Ebola Screen: Patient denies exposure to infectious person. Initial Sepsis Screen: Does the patient meet any 2 criteria? No. Patient's initial sepsis screen is negative. Does the patient have a suspected source of infection? No. Patient's initial sepsis screen is negative. Risk Assessment: Do you want to hurt yourself or someone else? Patient reports no desire to harm self or others. Onset of symptoms was July 26, 2024. 02:16 Method Of Arrival: Ambulatory br2 02:16 Acuity: THIERNO 5 br2 Triage Assessment: 02:19 Headache History: Denies prior headaches. General: Appears in no apparent distress. br2 comfortable, Behavior is calm, cooperative. Pain: Complains of pain in bridge of nose Pain currently is 7 out of 10 on a pain scale. Pain began 7 DAYS AGO. Pain: Also complains of. Neuro: [place] Agitation-Sedation Scale (RASS): 0 - Alert and Calm Level of Consciousness is awake, alert, obeys commands, Oriented to person, place, time, situation. Historical: - Allergies: 02:19 NSAIDS NON STEROIDAL ANTI INFLAMMATORY DRUG; br2 - Immunization history:: Adult Immunizations up to date. - Infectious Disease History:: Denies. - Social history:: Smoking status: Patient denies any tobacco usage or history of. Patient/guardian denies using alcohol, street drugs. - Family history:: not pertinent. Screenin:28 [facility] ED Fall Risk Assessment (Adult) History of falling in the last 3 months, jj7 including since admission No falls in past 3 months (0 pts) Confusion or Disorientation No (0 pts) Intoxicated or Sedated No (0 pts) Impaired Gait No (0 pts) Mobility Assist Device Used No (0 pt) Altered Elimination No (0 pt) Score/Fall Risk Level 0 - 2 = Low Risk Oriented to surroundings, Maintained a safe environment, Educated pt \T\ family on fall prevention, incl call for assistance when getting out of bed, Assessed \T\ reinforced patient's understanding of fall precautions. Abuse screen: Denies threats or abuse. Nutritional screening: No deficits noted. Tuberculosis screening: No symptoms or risk factors identified. Assessment: 02:28 General: Appears in no apparent distress. comfortable, Behavior is calm, cooperative, jj7 appropriate for age. Pain: Complains of pain in head and nose. Neuro: Reports headache. EENT: Reports pain in nose. Vital Signs: 02:16 BP 133 / 73; Pulse 79; Resp 18; Temp 97.4(TE); Pulse Ox 100% on R/A; Weight 68.04 kg; br2 Height 5 ft. 1 in. ; Pain 7/10; 02:16 Body Mass Index 28.34 (68.04 kg, 154.94 cm) br2 02:16 Pain Scale: Adult br2 [place] Coma Score: 23:14 Eye Response: spontaneous(4). Motor Response: obeys commands(6). Verbal Response: sp4 oriented(5). Total: 15. ED Course: 02:04 Patient arrived in ED. jj6 02:06 Brodie Mota MD is Attending Physician. sp4 02:19 Triage completed. br2 02:19 Arm band placed on right wrist. br2 02:28 Patient has correct armband on for positive identification. Bed in low position. Call jj7 light in reach. Provided Education on: USE OF CALL HOOD. 02:50 No provider procedures requiring assistance completed. Patient did not have IV access br2 during this emergency room visit. Administered Medications: No medications were administered Medication: 02:28 VIS not applicable for this client. jj7 Outcome: 02:45 Discharge ordered by . sp4 02:50 Discharged to home ambulatory, br2 02:50 Condition: unchanged 02:50 Discharge instructions given to patient, Instructed on discharge instructions, 02:52 Patient left the ED. br2 Signatures: Gisela Trujillo jj6 Moises Gutierrez RN RN jj7 Brodie Mota MD MD sp4 [place], Sabine, RN RN br2
[2024-08-02 02:56] VITALS: BP 133/73; TEMP 97.4; O2SAT 100
== END 2024-08-02 02:52 | disposition home or self-care (01) ==
LOC: ER 02:02
DX: S09.92XA Unspecified injury of nose, initial encounter (principal); R51.9 Headache, unspecified
CPT/HCPCS: 99282

== ENCOUNTER 2024-08-03 08:56 | Emergency (ER) | payer OTHER ==
--- OUTSIDE RECORDS SUMMARY | 2024-08-03 09:19 | XMS REPORT | Continuity of Care Document ---
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 04/12/24 at 1030, Routine [facility] fentanyl PF (SUBLIMAZE (PF)) injection 50 mcg 2023-05 15:45: 00 04-12 15:42 :00 No 50ug 50 mcg, Slow IV Push, ONCE, 1 dose, On Sat04/12/24 at 0945, Routine [facility] diphenhydrA MINE (BENADRYL) injection 25 mg 2023-05 14:18: 10 03-13 16:08 :09 No 25mg 25 mg, Intravenou s, Q6HPRN, Starting on Sat03/13/24 at 0918, Until Sat03/13/24 at 1108, Routine, Pain (scale 7-10) [facility] diazePAM (VALIUM) 10 mg tablet 2023-05 11:08: 09 Yes 10mg Take 1 tablet by mouth in the morning and 1 tablet in the evening. [facility] acetaminoph en ([facility]) IV piggyback 1,000 mg 2023-05 07:15: 00 03-13 07:05 :00 No 1000mg 1,000 mg, IV Piggyback, at 400 mL/hr Administer over 15 Minutes, ONCE, 1 dose, On Sat03/13/24 at 0215, Routine, Is the patient strict NPO and unable to tolerate oral medication s? Yes [facility] methylpredn isolone sod succ (SOLU-MEDRO L) injection 44.375 mg 2023-05 04:15: 00 03-13 05:06 :00 No 1mg/kg 44.375 mg (rounded from 44.5 mg = 1 mg/kg ?44.5 kg), Intravenou s, ONCE, 1 dose, On Sat03/12/24 at 2315, 2 mL [facility] iopamidol (ISOVUE 370-500 mL) injection 80 mL 2023-05 03:16: 00 03-13 03:00 :00 No [id number] 80mL 80 mL, Intravenou s, ONCE, 1 dose, On Sat03/12/24 at 2230, Routine [facility] diphenhydrA MINE (BENADRYL) injection 100 mg 2023-05 03:00: 00 03-13 05:06 :00 No [id number] 100mg 100 mg, Slow IV Push, ONCE, 1 dose, On Sat03/12/24 at 2200, STAT [facility] budesonide (PULMICORT RESPULE) nebulizer solution 1 mg 2023-05 01:00: 00 Yes 1mg 1 mg, Inhalation , BID, First dose on Sat03/12/24 at 2000, Until Discontinu ed, Routine [facility] amitriptyli ne 25 mg tablet 2023-05 00:00: 00 Yes [id number] 25mg Take 1 tablet by mouth at bedtime. [facility] budesonide 0.5 mg/2 mL nebulizer solution 2023-05 00:00: 00 06-06 05:59 :00 No [id number] 1mg Inhale 4 mL in the morning and 4 mL in the evening. Do all this for 84 days. [facility] diphenhydrA MINE 25 mg tablet 2023-05 00:00: 00 03-21 05:59 :00 No [id number] 25mg Take 1 tablet by mouth every 6 (six) hours as needed for Allergies for up to 7 days. [facility] methylPREDN ISolone sod succ (SOLU-MEDRO L (PF)) injection 40 mg 2023-05 23:45: 00 03-13 01:24 :00 No 40mg 40 mg, Intravenou s, ONCE, 1 dose, On Sat03/12/24 at 1845, 1 mL [facility] diphenhydrA MINE (BENADRYL) injection 50 mg 2023-05 23:45: 00 03-13 01:23 :00 No 50mg 50 mg, Intravenou s, ONCE, 1 dose, On Sat03/12/24 at 1845, Routine [facility] methylPREDN ISolone sod succ (SOLU-MEDRO L (PF)) injection 40 mg 2023-05 20:45: 00 03-12 20:53 :00 No 40mg 40 mg, Intravenou s, ONCE, 1 dose, On Sat03/12/24 at 1545, 1 mL [facility] diphenhydrA MINE (BENADRYL) injection 25 mg 2023-05 20:30: 00 03-12 20:58 :00 No 25mg 25 mg, Intravenou s, ONCE, 1 dose, On Sat03/12/24 at 1545, Routine [facility] diphenhydrA MINE (BENADRYL) injection 25 mg 2023-05 16:30: 00 03-12 16:16 :00 No 25mg 25 mg, Intravenou s, ONCE, 1 dose, On Sat03/12/24 at 1130, Routine [facility] diazePAM (VALIUM) injection 2 mg 2023-05 15:45: 00 03-13 13:38 :00 No 2mg 2 mg, Slow IV Push, BID, First dose on Sat03/12/24 at 1045, Until Discontinu ed, Routine [facility] Potassium Bicarb-Citr ic Acid (EFFER-K) effervescen t tablet 40 mEq 2023-05 03:45: 00 03-12 03:18 :00 No 40meq 40 mEq, Oral, ONCE, 1 dose, On Sat03/11/24 at 2245, Routine [facility] amitriptyli ne (ELAVIL) tablet 25 mg 2023-05 02:00: 00 Yes 25mg 25 mg, Oral, QHS, First dose on Sat03/11/24 at 2100, Until Discontinu ed, Routine [facility] budesonide (PULMICORT RESPULE) nebulizer solution 0.25 mg 2023-05 20:30: 00 03-12 15:40 :27 No .25mg 0.25 mg, Inhalation , BID, First dose (after last modificati on) on Sat03/11/24 at 1530, Until Discontinu ed, Routine [facility] morpHINE injection 2 mg 2023-05 18:00: 00 03-11 18:18 :00 No 2mg 2 mg, Slow IV Push, ONCE, 1 dose, On Sat03/11/24 at 1300, Routine [facility] proMETHazin e (PHENERGAN) 12.5 mg in NS 50 mL IV piggyback (CNR) 2023-05 16:08: 36 03-13 06:15 :30 No 12.5mg 12.5 mg, IV Piggyback, at 200 mL/hr Administer over 15 Minutes, Q4HPRN, Starting on Sat03/11/24 at 1108, Until Sat03/13/24 at 0115, [place], Nausea and Vomiting (N/V) [facility] diphenhydrA MINE (BENADRYL) injection 25 mg 2023-05 15:45: 00 03-11 15:14 :00 No 25mg 25 mg, Intravenou s, ONCE, 1 dose, On Sat03/11/24 at 1045, Routine [facility] morphine (2 mg/mL) injection 4 mg 2023-05 13:44: 13 03-11 17:55 :50 No 4mg 4 mg, Slow IV Push, Q4HPRN, Starting on Sat03/11/24 at 0844, Until Sat03/11/24 at 1255, Routine, Pain (scale 7-10) [facility] magnesium sulfate in water 4 gram/50 mL (8 %) IV Piggyback 4 g 2023-05 13:00: 00 03-11 16:09 :00 No 4g 4 g, IV Piggyback, at 25 mL/hr Administer over 120 Minutes, ONCE, 1 dose, On Sat03/11/24 at 0800, Routine [facility] tetracyclin e (ACHROMYCIN ) capsule 500 mg 2023-05 13:00: 00 03-11 16:07 :08 No 500mg 500 mg, Oral, QID, 112 doses, First dose on Sat03/11/24 at 0800, Last dose on Sat04/07/24 at 2000, [place], Reason for Anti-Infec tive: Documented Infection, Documented Infection Site: Abdominal, Duration of Therapy: 14 days [facility] metroNIDAZO LE (FLAGYL) tablet 500 mg 2023-05 13:00: 00 03-11 16:07 :08 No 500mg 500 mg, Oral, QID, First dose on Sat03/11/24 at 0800, Until Discontinu ed, Routine, Reason for Anti-Infec tive: Documented Infection, Documented Infection Site: Abdominal, Duration of Therapy: 14 days [facility] bismuth subsalicyla te (PEPTO BISMOL) chewable tablet 524 mg 2023-05 13:00: 00 03-11 16:07 :08 No 524mg 524 mg, Oral, QID, First dose on Sat03/11/24 at 0800, Until Discontinu ed [facility] lactated ringers IV infusion 1,000 mL 2023-05 08:30: 00 03-11 16:29 :00 No 1000mL at 125 mL/hr, 1,000 mL, IV Infusion, CONTINUOUS , Starting on Sat03/11/24 at 0330, Until Sat03/11/24 at 1129, Routine [facility] trimethoben zamide (TIGAN) injection 100 mg 2023-05 05:12: 20 03-13 16:08 :09 No 100mg 100 mg, Intramuscu lar, Q6HPRN, Starting on Sat03/11/24 at 0012, Until Sat03/13/24 at 1108, Routine, Nausea and Vomiting (N/V), alternate with zofran [facility] ondansetron (ZOFRAN (PF)) injection 4 mg 2023-05 03:42: 41 03-11 16:10 :43 No 4mg 4 mg, Slow IV Push, Q6HPRN, Starting on Sat03/10/24 at 2242, Until Sat03/11/24 at 1110, [place], Nausea and Vomiting (N/V) [facility] pantoprazol e (PROTONIX) injection 40 mg 2023-05 03:30: 00 03-13 16:08 :09 No 40mg 40 mg, Slow IV Push, Q12H, First dose on Sat03/10/24 at 2230, Until Discontinu ed [facility] morpHINE injection 4 mg 2023-05 03:21: 30 03-11 13:44 :25 No 4mg 4 mg, Slow IV Push, Q4HPRN, Starting on Sat03/10/24 at 2221, Until Sat03/11/24 at 0844, Routine, Pain (scale 7-10) [facility] acetaminoph en (TYLENOL) tablet 650 mg 2023-05 03:21: 25 03-13 16:08 :09 No 650mg [facility] morpHINE injection 4 mg 2023-05 02:00: 00 03-11 01:10 :00 No 4mg 4 mg, Slow IV Push, ONCE, 1 dose, On Sat03/10/24 at 2100, STAT [facility] trimethoben zamide (TIGAN) injection 100 mg 2023-05 02:00: 00 03-11 02:05 :00 No 100mg 100 mg, Intramuscu lar, ONCE, 1 dose, On Sat03/10/24 at 2100, Routine [facility] morpHINE injection 4 mg 2023-05 21:30: 00 03-10 22:20 :00 No 4mg 4 mg, Slow IV Push, ONCE, 1 dose, On Sat03/10/24 at 1630, STAT [facility] proMETHazin e (PHENERGAN) 25 mg in NS 50 mL IV piggyback (CNR) 2023-05 21:00: 00 03-10 22:30 :00 No 25mg 25 mg, IV Piggyback, at 200 mL/hr Administer over 15 Minutes, ONCE, 1 dose, On Sat03/10/24 at 1600, [place] [facility] diphenhydrA MINE (BENADRYL) injection 25 mg 2023-05 19:00: 00 03-10 19:12 :00 No 25mg 25 mg, Slow IV Push, ONCE, 1 dose, On Sat03/10/24 at 1400, STAT [facility] ondansetron (ZOFRAN (PF)) injection 4 mg 2023-05 18:30: 00 03-10 18:34 :00 No 4mg 4 mg, Slow IV Push, ONCE, 1 dose, [facility]10/24 [facility] 1330[facility]lidoca ine 2% viscous:maa lox 1:1:1 (FIRST-MOUT HWASH BLM) oral suspension 15 mL 2023-05 17:15: 00 03-10 18:34 :00 No 15mL 15 mL, Oral, ONCE, 1 dose, On Sat03/10/24 at 1215, Routine [facility] NaCl 0.9% (NS) bolus infusion 1,500 mL 2023-05 16:30: 00 03-11 00:19 :00 No 1500mL at 999 mL/hr, 1,500 mL, IV Infusion, ONCE, 1 dose, On Sat03/10/24 at 1130, [place] [facility] morpHINE injection 4 mg 2023-05 16:30: 00 03-10 16:33 :00 No 4mg 4 mg, Slow IV Push, ONCE, 1 dose, On Sat03/10/24 at 1130, STAT [facility] ondansetron (ZOFRAN (PF)) injection 4 mg 2023-05 15:30: 00 03-10 15:54 :00 No 4mg 4 mg, Slow IV Push, ONCE, 1 dose, On Sat03/10/24 at 1030, [place] [facility] pantoprazol e (PROTONIX) EC tablet 40 mg 2023-05 01:00: 00 03-05 22:06 :08 No 40mg 40 mg, Oral, BID, First dose on Sat03/05/24 at 2000, Until Discontinu ed, Routine [facility] bismuth subsalicyla te (PEPTO BISMOL) chewable tablet 524 mg 2023-05 17:00: 00 03-05 22:06 :08 No 524mg 524 mg, Oral, QID, 56 doses, First dose on Sat03/05/24 at 1200, Last dose on Sat03/19/24 at 0800, Routine [facility] tetracyclin e (ACHROMYCIN ) capsule 500 mg 2023-05 13:00: 00 03-05 22:06 :08 No 500mg 500 mg, Oral, QID, 56 doses, First dose on Sat03/05/24 at 0800, Last dose on Sat03/18/24 at 2000, [place], Reason for Anti-Infec tive: Documented Infection, Documented Infection Site: Abdominal, Duration of Therapy: 14 days [facility] metroNIDAZO LE (FLAGYL) tablet 500 mg 2023-05 11:30: 00 03-05 22:06 :08 No 500mg 500 mg, Oral, Q8H, 42 doses, First dose on Sat03/05/24 at 0630, Last dose on Sat03/18/24 at 2200, Routine, Reason for Anti-Infec tive: Documented Infection, Documented Infection Site: Abdominal, Duration of Therapy: 14 days [facility] pantoprazol e (PROTONIX) injection 40 mg 2023-05 01:00: 00 03-05 16:38 :50 No 40mg 40 mg, Slow IV Push, Q12H, First dose on Sat03/04/24 at 2000, Until Discontinu ed [facility] metroNIDAZO LE 500 mg tablet 2023-05 00:00: 00 Yes [id number] 500mg Take 1 tablet by mouth 4 (four) times daily. [facility] tetracyclin e 500 mg capsule 2023-05 00:00: 00 Yes [id number] 500mg Take 1 capsule by mouth 4 (four) times daily. [facility] bismuth subsalicyla te 525 mg Tab 2023-05 00:00: 00 Yes [id number] 525mg Take 525 mg by mouth 4 (four) times daily. [facility] omeprazole 20 mg capsule 2023-05 00:00: 00 Yes [id number] 20mg Take 1 capsule by mouth in the morning and 1 capsule in the evening. [facility] ondansetron 4 mg disintegrat ing tablet 2023-05 00:00: 00 Yes [id number] 4mg Take 1 tablet by mouth every 8 (eight) hours as needed for Nausea and Vomiting (N/V). [facility] enoxaparin (LOVENOX) injection 40 mg 2023-05 22:00: 00 03-05 22:06 :08 No 40mg 40 mg, Subcutaneo us, DAILY, First dose on Sat03/04/24 at 1700, Until Discontinu ed, Routine [facility] hydrOXYzine (ATARAX) tablet 10 mg 2023-05 20:02: 48 03-05 22:06 :08 No 10mg 10 mg, Oral, Q6HPRN, Starting on Sat03/04/24 at 1502, Until Kathie 03/05/24 at 1706, Routine, Anxiety [facility] morphine (2 mg/mL) injection 4 mg 2023-05 19:15: 05 03-05 19:09 :51 No 4mg 4 mg, Slow IV Push, Q6HPRN, Starting on Sat03/04/24 at 1415, Until Sat03/05/24 at 1409, Routine, Pain (scale 7-10) [facility] proMETHazin e (PHENERGAN) 12.5 mg in NS 50 mL IV piggyback (CNR) 2023-05 19:13: 41 03-05 22:06 :08 No 12.5mg 12.5 mg, IV Piggyback, at 200 mL/hr Administer over 15 Minutes, Q4HPRN, Starting on Sat03/04/24 at 1413, Until [place] 03/05/24 at 1706, Routine, N/V unresponsi ve to Ondansetro n [facility] ondansetron (ZOFRAN (PF)) injection 4 mg 2023-05 19:10: 57 03-05 22:06 :08 No 4mg 4 mg, Slow IV Push, Q6HPRN, Starting on Sat03/04/24 at 1410, Until [place] 03/05/24 at 1706, Routine, Nausea and Vomiting (N/V) [facility] HYDROcodone -acetaminop hen (NORCO 5) tablet 1 tablet 2023-05 19:10: 38 03-05 22:06 :08 No 1{tbl} 1 tablet, Oral, Q6HPRN, Starting on Sat03/04/24 at 1410, Until [place] 03/05/24 at 1706, Routine, Pain (scale 4-6) [facility] acetaminoph en (TYLENOL) tablet 650 mg 2023-05 19:10: 34 03-05 22:06 :08 No 650mg [facility] morphine (2 mg/mL) injection 4 mg 2023-05 16:15: 00 03-04 16:19 :00 No 4mg 4 mg, Slow IV Push, ONCE, 1 dose, On Sat03/04/24 at 1115, [facility] ondansetron (ZOFRAN (PF)) injection 4 mg 2023-05 16:15: 00 03-04 16:19 :00 No 4mg 4 mg, Slow IV Push, ONCE, 1 dose, On Sat03/04/24 at 1115, [facility] morphine (2 mg/mL) injection 4 mg 2023-05 13:15: 00 03-04 13:57 :00 No 4mg 4 mg, Slow IV Push, ONCE, 1 dose, On Sat03/04/24 at 0815, [facility] pantoprazol e (PROTONIX) injection 40 mg 2023-05 13:15: 00 03-04 14:04 :00 No 40mg 40 mg, Slow IV Push, ONCE, 1 dose, On Sat03/04/24 at 0815 [facility] NaCl 0.9% (NS) bolus infusion 1,000 mL 2023-05 13:15: 00 03-04 16:51 :00 No 1000mL at 999 mL/hr, 1,000 mL, IV Infusion, ONCE, 1 dose, On Sat03/04/24 at 0815, [facility] ondansetron (ZOFRAN (PF)) injection 4 mg 2023-05 12:15: 03-04 13:56 :00 No 4mg 4 mg, Slow IV Push, ONCE, 1 dose, On Sat03/04/24 at 0715, [facility] escitalopra m oxalate 20 mg tablet 2023-05 00:00: 00 Yes 20mg Take 1 tablet by mouth in the morning. [facility] eszopiclone 3 mg tablet 2023-05 00:00: 00 Yes 3mg Take 1 tablet by mouth at bedtime. [facility] bismuth subsalicyla te 525 mg Tab 2023-05 00:00: 00 03-05 00:00 :00 No [id number] 525mg Take 525 mg by mouth 4 (four) times daily for 14 days. [facility] metroNIDAZO LE 500 mg tablet 2023-05 00:00: 00 03-05 00:00 :00 No [id number] 500mg Take 1 tablet by mouth 4 (four) times daily for 14 days. [facility] tetracyclin e 500 mg capsule 2023-05 00:00: 00 03-05 00:00 :00 No [id number] 500mg Take 1 capsule by mouth 4 (four) times daily for 14 days. [facility] omeprazole 20 mg capsule 2023-05 00:00: 00 03-05 00:00 :00 No [id number] 20mg Take 1 capsule by mouth in the morning and 1 capsule in the evening. Do all this for 14 days. [facility] pantoprazol e (PROTONIX) EC tablet 40 mg 2023-05 16:45: 00 02-26 23:59 :22 No 40mg 40 mg, Oral, BID, First dose (after last modificati on) on Kathie 02/27/24 at 1145, Until Discontinu ed, Routine [facility] lactated ringers IV infusion 2023-05 15:19: 00 02-26 15:26 :52 No IV Infusion, CONTINUOUS PRN, Starting on Kathie 02/27/24 at 1019, Until [place] 02/27/24 at 1026, Routine, Intra-op [facility] simethicone (GAS RELIEF (SIMETHICON E)) 40 mg/0.6 mL drops 2023-05 14:57: 00 02-26 16:34 :28 No PRN, Starting on Kathie 02/27/24 at 0957, Until [place] 02/27/24 at 1134, Routine, Intra-op [facility] PHENYLephri ne 1000 mcg/10 mL in 0.9% NaCl syringe 2023-05 14:50: 00 02-26 15:26 :52 No Intravenou s, ONCE INTRA PROCEDURE, Starting on Ktahie 02/27/24 at 0950, Until [place] 02/27/24 at 1026, Routine, Intra-op [facility] dexmedeTOMI Dine (PRECEDEX) injection 2023-05 14:27: 00 02-26 15:26 :52 No Intravenou s, ONCE INTRA PROCEDURE, Starting on Kathie 02/27/24 at 0927, Until [place] 02/27/24 at 1026, Routine, [facility]-op [facility] propofoL IV infusion 2023-05 14:26: 00 02-26 15:26 :52 No IV Infusion, ONCE INTRA PROCEDURE, Starting on Kathie 02/27/24 at 0926, Until [place] 02/27/24 at 1026, Routine, Intra-op [facility] lidocaine 1% (XYLOCAINE) 100 mg/10 mL (1 %) injection 2023-05 14:26: 00 02-26 15:26 :52 No Intravenou s, ONCE INTRA PROCEDURE, Starting on Kathie 02/27/24 at 0926, Until [place] 02/27/24 at 1026, Routine, Intra-op [facility] FENTanyl (PF) (SUBLIMAZE) injection 2023-05 14:26: 00 02-26 15:26 :52 No Intravenou s, ONCE INTRA PROCEDURE, Starting on Kathie 02/27/24 at 0926, Until [place] 02/27/24 at 1026, Routine, Intra-op [facility] midazolam (VERSED) injection 2023-05 14:24: 00 02-26 15:26 :52 No IV Push, ONCE INTRA PROCEDURE, Starting on Kathie 02/27/24 at 0924, Until [place] 02/27/24 at 1026, Routine, Intra-op [facility] NaCl 0.9% (NS) IV infusion 2023-05 14:22: 00 02-26 15:26 :52 No IV Infusion, CONTINUOUS PRN, Starting on Kathie 02/27/24 at 0922, Until [place] 02/27/24 at 1026, Routine, Intra-op [facility] sodium phosphates (READY-TO-U SE ENEMA) 19-7 gram/118 mL enema 1 Enema 2023-05 10:00: 00 02-26 10:05 :00 No 1{enema } 1 Enema, Rectal, ONCE, 1 dose, On Kathie 02/27/24 at 0500, Routine [facility] polyethylen e glycol 3350 powder 17 g 2023-05 01:00: 00 02-26 21:59 :19 No 17g 17 g, Oral, BID, First dose (after last modificati on) on Sat02/26/24 at 2000, Until Discontinu ed, Routine [facility] ondansetron 4 mg disintegrat ing tablet 2023-05 00:00: 00 03-05 00:00 :00 No [id number] 4mg Take 1 tablet by mouth every 8 (eight) hours as needed for Nausea and Vomiting (N/V). [facility] pantoprazol e 40 mg EC tablet 2023-05 00:00: 00 03-05 00:00 :00 No [id number] 40mg Take 1 tablet by mouth in the morning and 1 tablet in the evening. [facility] amitriptyli ne 25 mg tablet 2023-05 00:00: 00 03-04 00:00 :00 No [id number] 25mg Take 1 tablet by mouth at bedtime. [facility] acetaminoph en-codeine 300-30 mg tablet 2023-05 00:00: 00 02-26 00:00 :00 No [id number] 1{tbl} Take 1 tablet by mouth every 4 (four) hours as needed for Pain (scale 7-10) for up to 7 days. Indication s: acute pain [facility] simethicone (GAS RELIEF (SIMETHICON E)) chewable tablet 80 mg 2023-05 23:00: 00 02-26 21:59 :19 No 80mg 80 mg, Oral, PC+HS, First dose on Sat02/26/24 at 1800, Until Discontinu ed, Routine [facility] morphine (2 mg/mL) injection 2 mg 2023-05 20:22: 36 02-26 21:59 :19 No 2mg 2 mg, Slow IV Push, Q4HPRN, Starting on Sat02/26/24 at 1522, Until [place]ie 02/27/24 at 1659, Routine, Pain (scale 4-6) [facility] morphine (2 mg/mL) injection 4 mg 2023-05 20:22: 32 02-26 21:59 :19 No 4mg 4 mg, Slow IV Push, Q4HPRN, Starting on Sat02/26/24 at 1522, Until [place]ie 02/27/24 at 1659, Routine, Pain (scale 7-10) [facility] LORazepam (ATIVAN) injection 0.5 mg 2023-05 18:39: 21 02-26 21:59 :19 No .5mg 0.5 mg, Slow IV Push, Q6HPRN, Starting on Sat02/26/24 at 1339, Until Kathie 02/27/24 at 1659, Routine, Anxiety [facility] bisacodyL (DULCOLAX) suppository 10 mg 2023-05 18:17: 00 02-25 18:47 :00 No 10mg 10 mg, Rectal, ONCE NOW, 1 dose, On Sat02/26/24 at 1330, Routine [facility] acetaminoph en (OFIRMEV) IV piggyback 1,000 mg 2023-05 15:30: 00 02-25 15:03 :00 No 1000mg 1,000 mg, IV Piggyback, at 400 mL/hr Administer over 15 Minutes, ONCE, 1 dose, On Sat02/26/24 at 1030, Routine, Is the patient strict NPO and unable to tolerate oral medication s? Yes [facility] bisacodyL (DULCOLAX) tablet 5 mg 2023-05 14:30: 00 02-26 21:59 :19 No 5mg 5 mg, Oral, DAILY, First dose on Sat02/26/24 at 0930, Until Discontinu ed, Routine [facility] amitriptyli ne (ELAVIL) tablet 25 mg 2023-05 02:00: 00 02-26 23:59 :22 No 25mg 25 mg, Oral, QHS, First dose on Sat02/25/24 at 2100, Until Discontinu ed, Routine [facility] morphine (2 mg/mL) injection 4 mg 2023-05 18:49: 53 02-25 14:28 :08 No 4mg 4 mg, Slow IV Push, Q4HPRN, Starting on Sat02/25/24 at 1349, Until Sat02/26/24 at 0928, Routine, Pain (scale 7-10) [facility] morphine (2 mg/mL) injection 2 mg 2023-05 18:49: 15 02-25 14:28 :08 No 2mg 2 mg, Slow IV Push, Q4HPRN, Starting on Sat02/25/24 at 1349, Until Sat02/26/24 at 0928, Routine, Pain (scale 7-10) [facility] gadobenate dimeglumine (MULTIHANCE -10 mL) injection 9.08 mL 2023-05 17:30: 00 02-24 17:30 :00 No [id number] .2mL/kg 9.08 mL (0.2 mL/kg ?45.4 kg), Intravenou s, ONCE, 1 dose, On Sat02/25/24 at 1230, Routine [facility] LORazepam (ATIVAN) injection 1 mg 2023-05 17:00: 00 02-24 16:25 :00 No 1mg 1 mg, Slow IV Push, ONCE, 1 dose, On Sat02/25/24 at 1200, STAT [facility] polyethylen e glycol 3350 powder 17 g 2023-05 16:00: 00 02-25 14:24 :01 No 17g 17 g, Oral, DAILY, First dose on Sat02/25/24 at 1100, Until Discontinu ed, Routine [facility] lactated ringers IV infusion 1,000 mL 2023-05 13:15: 00 02-26 21:59 :19 No 1000mL at 125 mL/hr, 1,000 mL, IV Infusion, CONTINUOUS , Starting on Sat02/25/24 at 0815, Until Sat02/27/24 at 1659, Routine [facility] potassium chloride in water (KCL) 20 mEq/100 mL IV infusion 20 mEq 2023-05 13:00: 00 02-24 13:30 :00 No 20meq 20 mEq, IV Infusion, at 50 mL/hr Administer over 2 Hours, ONCE, 1 dose, On Sat02/25/24 at 0800, Routine [facility] melatonin (MELATIN) tablet 3 mg 2023-05 02:00: 00 02-26 21:59 :19 No 3mg 3 mg, Oral, QHS, First dose on Sat02/24/24 at 2100, Until Discontinu ed, Routine [facility] lactated ringers IV infusion 500 mL 2023-05 19:30: 00 02-24 09:54 :00 No 500mL at 999 mL/hr, 500 mL, IV Infusion, ONCE, 1 dose, On Sat02/24/24 at 1430, Routine [facility] Lidocaine (LIDOCARE) 4 % patch 1 Patch 2023-05 18:00: 00 02-24 05:15 :00 No 1{patch } 1 Patch, Topical, Administer over 12 Hours, ONCE, 1 dose, On Sat02/24/24 at 1300, Routine [facility] LORazepam (ATIVAN) injection 0.5 mg 2023-05 12:25: 30 02-25 18:39 :43 No .5mg 0.5 mg, Slow IV Push, Q6HPRN, Starting on Sat02/24/24 at 0725, Until Sat02/26/24 at 1339, Routine, Anxiety, Agitation [facility] diphenhydrA MINE (BENADRYL) injection 25 mg 2023-05 01:40: 29 02-23 14:54 :01 No 25mg 25 mg, Intravenou s, Q6HPRN, Starting on 02/23/24 at 2040, Until 02/24/24 at 0954, Routine, Nausea and Vomiting (N/V) [facility] LORazepam (ATIVAN) injection 0.5 mg 2023-05 01:39: 00 02-23 02:48 :00 No .5mg 0.5 mg, Slow IV Push, ONCE, 1 dose, On Sat02/23/24 at 2045, Routine [facility] diphenhydrA MINE (BENADRYL) injection 25 mg 2023-05 14:19: 13 02-23 01:14 :28 No 25mg 25 mg, Intravenou s, Q6HPRN, Starting on Sat02/23/24 at 0919, Until 02/23/24 at 2014, Routine, Nausea and Vomiting (N/V) [facility] ondansetron (ZOFRAN (PF)) injection 4 mg 2023-05 14:18: 38 02-26 21:59 :19 No 4mg 4 mg, Slow IV Push, Q6HPRN, Nausea and Vomiting (N/V), Starting on Sat02/23/24 at 0918, Doses of ondansetro n 16 mg and above need to be administer ed via IV piggyback. For Dose >=24mg ECG monitoring is advisable. [facility] pantoprazol e (PROTONIX) injection 40 mg 2023-05 11:53: 00 02-25 19:46 :39 No 40mg 40 mg, Slow IV Push, Q24H, First dose (after last modificati on) on Sat02/23/24 at 0700, Until Discontinu ed [facility] cariprazine (VRAYLAR) 1.5 mg capsule 2023-05 09:24: 25 Yes 1.5mg Take 1 capsule by mouth in the morning. [facility] LORazepam 0.5 mg tablet 2023-05 09:24: 25 Yes .5mg Take 1 tablet by mouth. [facility] diphenhydrA MINE (BENADRYL) injection 25 mg 2023-05 03:57: 18 02-22 14:19 :23 No 25mg 25 mg, Intravenou s, Q4HPRN, Starting on 02/22/24 at 2257, Until 02/23/24 at 0919, Routine, Nausea and Vomiting (N/V) [facility] heparin (porcine) injection 5,000 Units 2023-05 01:00: 00 02-26 21:59 :19 No 5000U 5,000 Units, Subcutaneo us, Q12H, First dose on 02/22/24 at 2000, Until Discontinu ed, Routine [facility] morphine (2 mg/mL) injection 4 mg 2023-05 19:33: 18 02-24 15:57 :38 No 4mg 4 mg, Slow IV Push, Q4HPRN, Starting on 02/22/24 at 1433, Until 02/25/24 at 1057, Routine, Pain (scale 7-10) [facility] proMETHazin e (PHENERGAN) 25 mg in NS 50 mL IV piggyback (CNR) 2023-05 19:33: 05 02-22 14:19 :00 No 25mg 25 mg, IV Piggyback, at 200 mL/hr Administer over 15 Minutes, Q4HPRN, Starting on 02/22/24 at 1433, Until 02/23/24 at 0919, [place], Nausea and Vomiting (N/V) [facility] metoprolol tartrate 50 mg tablet 2023-05 19:26: 59 02-26 00:00 :00 No 50mg Take 1 tablet by mouth in the morning and 1 tablet in the evening. [facility] escitalopra m oxalate (LEXAPRO) 10 mg tablet 2023-05 19:26: 59 02-26 00:00 :00 No 10mg Take 1 tablet by mouth in the morning. [facility] morphine (2 mg/mL) injection 4 mg 2023-05 17:45: 00 02-21 18:20 :00 No 4mg 4 mg, Slow IV Push, ONCE, 1 dose, On 02/22/24 at 1245, STAT [facility] proMETHazin e (PHENERGAN) 25 mg in NS 50 mL IV piggyback (CNR) 2023-05 16:45: 00 02-21 17:33 :00 No 25mg 25 mg, IV Piggyback, at 200 mL/hr Administer over 15 Minutes, ONCE, 1 dose, On 02/22/24 at 1145, [facility] morphine (2 mg/mL) injection 4 mg 2023-05 16:00: 00 02-21 16:06 :00 No 4mg 4 mg, Slow IV Push, ONCE, 1 dose, On 02/22/24 at 1100, STAT [facility] famotidine (PEPCID (PF)) injection 20 mg 2023-05 15:00: 00 02-21 15:35 :00 No 20mg 20 mg, Slow IV Push, ONCE, 1 dose, On 02/22/24 at 1000, [facility] ondansetron (ZOFRAN (PF)) injection 4 mg 2023-05 15:00: 00 02-21 15:34 :00 No 4mg 4 mg, Slow IV Push, ONCE, 1 dose, On 02/22/24 at 1000, [facility] NaCl 0.9% (NS) bolus infusion 1,000 mL 2023-05 15:00: 00 02-21 18:06 :00 No 1000mL at 999 mL/hr, 1,000 mL, IV Infusion, ONCE, 1 dose, On 02/22/24 at 1000, STAT [facility] buPROPion XL 150 mg 24 hr tablet 01-22 00:00: 00 Yes 150mg Take 1 tablet by mouth every morning. [facility] cholestyram ine 4 gram powder 01-20 00:00: 00 Yes MIX AND DRINK 1 SCOOP BY MOUTH DAILY [facility] busPIRone 7.5 mg tablet 01-19 00:00: 00 Yes 7.5mg Take 1 tablet by mouth in the morning and 1 tablet in the evening. [facility] metoprolol tartrate 50 mg tablet 08-25 11:55: 42 Yes 50mg Take 1 tablet by mouth in the morning and 1 tablet in the evening. [facility] escitalopra m oxalate (LEXAPRO) 10 mg tablet 08-25 11:55: 42 Yes 10mg Take 1 tablet by mouth in the morning. [facility] divalproex ER 250 mg 24 hr tablet 08-23 00:00: 00 11-22 04:59 :00 No [id number] 250mg Take 1 tablet by mouth in the morning and 1 tablet in the evening. Do all this for 90 days. [facility] acetaminoph en-codeine 300-30 mg tablet 08-23 00:00: 00 08-31 04:59 :00 No [id number] 1{tbl} Take 1 tablet by mouth every 6 (six) hours as needed for Pain (scale 4-6) or Pain (scale 7-10) for up to 7 days. Indication s: acute pain [facility] cefTRIAXone (ROCEPHIN) 1,000 mg in NaCl 0.9% (NS) 100 mL MINI-BAG 05-19 16:45: 00 05-19 17:24 :00 No 1000mg 1,000 mg, IV Piggyback, ONCE, 1 dose, On 05/19/23 at 1045, Administer over 30 Minutes, 100 mL
Reas on for Anti-Infec tive: Documented Infection< br>Documen renata Infection Site: Urine
D uration of Therapy: Other (see Comments) [facility] morpHINE (4 mg/mL) injection 4 mg 05-19 16:45: 00 05-19 16:53 :00 No 4mg 4 mg, Slow IV Push, ONCE, 1 dose, On 05/19/23 at 1045, STAT [facility] NaCl 0.9% (NS) bolus infusion 1,000 mL 05-19 16:00: 00 05-19 17:00 :00 No 1000mL at 999 mL/hr, 1,000 mL, IV Infusion, ONCE, 1 dose, On 05/19/23 at 1000, [facility] iopamidol (ISOVUE 370-500 mL) injection 80 mL 05-19 15:50: 00 05-19 16:15 :00 No [id number] 80mL 80 mL, Intravenou s, ONCE, 1 dose, On 05/19/23 at 1015, Routine [facility] dicyclomine (BENTYL) tablet 20 mg 05-19 15:45: 00 05-19 16:09 :00 No 20mg 20 mg, Oral, ONCE, 1 dose, On 05/19/23 at 0945, [facility] ondansetron (ZOFRAN (PF)) injection 4 mg 05-19 15:15: 00 05-19 15:50 :00 No 4mg 4 mg, Slow IV Push, ONCE, 1 dose, On 05/19/23 at 0915, [facility] maalox:diph enhydrAMINE :lidocaine 2 % viscous 1:1:1 (FIRST-[facility]OUT [facility]) oral suspension 15 mL 05-19 15:15: 00 05-19 15:49 :00 No 15mL 15 mL, Oral, ONCE, 1 dose, On 05/19/23 at 0915, Routine [facility] famotidine (PEPCID (PF)) injection 20 mg 05-19 15:15: 00 05-19 15:51 :00 No 20mg 20 mg, Slow IV Push, ONCE, 1 dose, On 05/19/23 at 0915, [facility] ondansetron 4 mg disintegrat ing tablet 05-19 00:0002-26 00:00 :00 No [id number] 4mg Take 1 tablet by mouth every 8 (eight) hours as needed for Nausea and Vomiting (N/V). [facility] sucralfate 1 gram tablet 05-19 00:00: 00 06-19 05:59 :00 No [id number] 1g Take 1 tablet by mouth before meals and at bedtime for 30 days. [facility] pantoprazol e 40 mg EC tablet 05-19 00:00: 00 06-19 05:59 :00 No [id number] 40mg Take 1 tablet by mouth in the morning for 30 days. [facility] cefdinir 300 mg capsule 05-19 00:00: 00 05-27 05:59 :00 No [id number] 300mg Take 1 capsule by mouth every 12 (twelve) hours for 7 days. [facility] morpHINE (2 mg/mL) injection 2 mg 01-15 19:15: 01-15 18:49 :00 No 2mg 2 mg, Slow IV Push, ONCE, 1 dose, On Sat01/15/23 at 1415, Routine [facility] ondansetron (ZOFRAN) tablet 4 mg 01-15 18:15: 01-15 22:02 :00 No 4mg 4 mg, Oral, ONCE, 1 dose, On Sat01/15/23 at 1315, Routine [facility] ondansetron 4 mg tablet 01-15 00:00: 02-26 00:00 :00 No [id number] 4mg Take 1 tablet by mouth every 8 (eight) hours as needed for Nausea and Vomiting (N/V). [facility] HYDROcodone -acetaminop hen 5-325 mg tablet 01-15 00:00: 01-23 04:59 :00 No [id number] 1{tbl} Take 1 tablet by mouth every 4 (four) hours as needed for Pain (scale 4-6) for up to 7 days. Indication s: acute pain [facility] morpHINE (2 mg/mL) injection 2 mg 01-14 16:11: 23 01-15 11:49 :59 No 2mg 2 mg, Slow IV Push, Q4HPRN, Starting on Sat01/14/23 at 1111, Until Sat01/15/23 at 0649, Routine, Pain (scale 7-10) [facility] methocarbam oL (ROBAXIN) tablet 500 mg 01-14 13:00: 00 Yes 500mg 500 mg, Oral, QID, First dose on Sat01/14/23 at 0800, Until Discontinu ed, Routine [facility] celecoxib (CELEBREX) capsule 100 mg 01-14 13:00: 00 Yes 100mg 100 mg, Oral, BID MEALS, First dose on Sat01/14/23 at 0800, Until Discontinu ed, Routine [facility] gabapentin (NEURONTIN) capsule 300 mg 01-14 01:30: 00 Yes 300mg 300 mg, Oral, TID, First dose on [place] 01/13/23 at 2030, Until Discontinu ed, Routine [facility] acetaminoph en (TYLENOL) tablet 1,000 mg 01-14 01:30: 00 Yes 1000mg 1,000 mg, Oral, Q8H, First dose (after last modificati on) on [place] 01/13/23 at 2030, Until Discontinu ed, Routine [facility] scopolamine transdermal (TRANSDERM- SCOP) patch 1.5 mg 01-13 00:30: 00 Yes 1.5mg 1.5 mg, Topical, Administer over 72 Hours, Q72H, First dose on [facility] 01/12/23 at 1930, Until Discontinu ed, Routine [facility] enoxaparin (LOVENOX) injection 40 mg 01-12 22:00: 00 Yes 40mg 40 mg, Subcutaneo us, DAILY, First dose on Sat01/12/23 at 1700, Until Discontinu ed, Routine [facility] FENTanyl PF (SUBLIMAZE (PF)) injection 100 mcg 01-12 20:30: 00 01-12 20:30 :00 No [id number] 100ug 100 mcg, Slow IV Push, ONCE, 1 dose, On 01/12/23 at 1530, Routine [facility] proMETHazin e (PHENERGAN) 25 mg in NS 50 mL IV piggyback (CNR) 01-12 17:11: 31 01-15 14:12 :44 No 25mg 25 mg, IV Piggyback, at 200 mL/hr Administer over 15 Minutes, Q4HPRN, Starting on Sat01/12/23 at 1211, Until 01/15/23 at 0912, Routine, Nausea and Vomiting (N/V) [facility] piperacilli n-tazobacta m (ZOSYN) 3.375 [...] Abdominal< br>Duratio n of Therapy: 7 days [facility] pantoprazol e (PROTONIX) EC tablet 40 mg 01-12 14:00: 00 Yes 40mg 40 mg, Oral, DAILY, First dose on Sat01/12/23 at 0900, Until Discontinu ed, Routine [facility] KCL (KLOR-CON M20) tablet 40 mEq 01-12 09:30: 00 01-12 09:25 :00 No 40meq 40 mEq, Oral, ONCE, 1 dose, On Sat01/12/23 at 0430, Routine [facility] diphenhydrA MINE (BENADRYL) tablet 25 mg 01-12 08:31: 43 Yes 25mg 25 mg, Oral, QHSPRN, Starting on Sat01/12/23 at 0331, Until Discontinu ed, Routine, Itching, Sleep [facility] lactated ringers IV infusion 1,000 mL 01-12 08:15: 00 01-15 11:48 :29 No 1000mL at 50 mL/hr, 1,000 mL, IV Infusion, CONTINUOUS , Starting on 01/12/23 at 0315, Until 01/15/23 at 0648, Routine [facility] piperacilli n-tazobacta m (ZOSYN) 3.375 g in NaCl 0.9% (NS) 100 mL MINI-BAG 01-12 06:45: 00 01-12 08:43 :00 No 3.375g 3.375 g, IV Piggyback, ONCE, 1 dose, On 01/12/23 at 0145, Administer over 30 Minutes, 100 mL
Reas on for Anti-Infec tive: Documented Infection< br>Documen renata Infection Site: Abdominal< br>Duratio n of Therapy: 7 days [facility] lactated ringers IV infusion 1,000 mL 01-12 06:00: 00 01-12 08:13 :38 No 1000mL at 100 mL/hr, 1,000 mL, IV Infusion, CONTINUOUS , Starting on 01/12/23 at 0100, Until 01/12/23 at 0313, Routine [facility] morpHINE (4 mg/mL) injection 4 mg 01-12 05:49: 22 01-14 05:48 :22 No 4mg 4 mg, Slow IV Push, Q4HPRN, Starting on 01/12/23 at 0049, Until 01/14/23 at 0048, Routine, Pain (scale 7-10) [facility] HYDROcodone -acetaminop hen (NORCO 5) 5-325 mg tablet 1 tablet 01-12 05:49: 18 Yes 1{tbl} 1 tablet, Oral, Q4HPRN, Starting on 01/12/23 at 0049, Until Discontinu ed, Routine, Pain (scale 4-6) [facility] ondansetron (ZOFRAN (PF)) injection 4 mg 01-12 05:49: 11 01-15 17:31 :12 No 4mg 4 mg, Slow IV Push, Q6HPRN, Starting on 01/12/23 at 0049, Until Sat01/15/23 at 1231, Routine, Nausea and Vomiting (N/V) [facility] ondansetron (ZOFRAN (PF)) injection 4 mg 01-12 04:45: 00 01-12 04:45 :00 No 4mg 4 mg, Slow IV Push, ONCE, 1 dose, On Sat01/11/23 at 2345, [place] [facility] morpHINE (4 mg/mL) injection 4 mg 01-12 04:45: 00 01-12 04:45 :00 No 4mg 4 mg, Slow IV Push, ONCE, 1 dose, On Sat01/11/23 at 2345, STAT [facility] proMETHazin e (PHENERGAN) 25 mg in NS 50 mL IV piggyback (CNR) 01-12 04:45: 00 01-12 06:00 :00 No 25mg 25 mg, IV Piggyback, at 200 mL/hr Administer over 15 Minutes, ONCE, 1 dose, On Sat01/11/23 at 2345, [place] [facility] iopamidol (ISOVUE 370-500 mL) injection 80 mL 01-12 03:33: 00 01-12 03:25 :00 No [id number] 80mL 80 mL, Intravenou s, ONCE, 1 dose, On Sat01/11/23 at 2245, Routine [facility] maalox:diph enhydrAMINE :lidocaine 2 % viscous 1:1:1 ([facility]) oral suspension 15 mL 01-12 03:30: 00 01-12 03:07 :00 No 15mL 15 mL, Oral, ONCE, 1 dose, On Sat01/11/23 at 2230, Routine [facility] morpHINE (4 mg/mL) injection 4 mg 01-12 03:30: 00 01-12 03:05 :00 No 4mg 4 mg, Slow IV Push, ONCE, 1 dose, On Sat01/11/23 at 2230, [facility] NaCl 0.9% (NS) bolus infusion 1,000 mL 01-12 03:30: 00 01-12 03:04 :00 No 1000mL at 999 mL/hr, 1,000 mL, IV Infusion, ONCE, 1 dose, On Sat01/11/23 at 2230, [facility] ondansetron (ZOFRAN (PF)) injection 4 mg 01-12 03:00: 00 01-12 03:05 :00 No 4mg 4 mg, Slow IV Push, ONCE, 1 dose, On Sat01/11/23 at 2200, [facility] ibuprofen (IBU) tablet 600 mg 11-21 22:15: 00 11-21 21:44 :00 No 600mg 600 mg, Oral, ONCE, 1 dose, On Sat11/21/22 at 1715, [facility] butalbital- acetaminoph en-caff (ESGIC) 50-325-40 mg tablet 1 tablet 11-21 21:30: 00 11-21 21:39 :00 No 1{tbl} 1 tablet, Oral, ONCE, 1 dose, On Sat11/21/22 at 1630, [facility] ciprofloxac in HCl 500 mg tablet 11-11 00:00: 00 02-26 00:00 :00 No TAKE 1 TABLET BY MOUTH EVERY 12 HOURS FOR 7 DAYS [facility] methocarbam oL 750 mg tablet 11-07 00:00: 00 Yes 750mg Take 1 tablet by mouth 2 (two) times daily as needed. [facility] methocarbam oL 750 mg tablet 11-07 00:00: 00 02-26 00:00 :00 No 1{tbl} Take 1 tablet by mouth 2 (two) times daily as needed. [facility] baclofen 10 mg tablet 3-0 6-17 00:00: 00 Yes 10mg Take 1 tablet by mouth every 6 (six) hours as needed. [facility] baclofen 10 mg tablet 2022-0 6-17 00:00: 00 02-26 00:00 :00 No 1{tbl} Take 1 tablet by mouth every 6 (six) hours as needed. [facility] tiZANidine 4 mg tablet 2022-0 6-14 00:00: 00 Yes 4mg Take 1 tablet by mouth every 6 (six) hours as needed. [facility] tiZANidine 4 mg tablet 2022-0 6-14 00:00: 00 02-26 00:00 :00 No 1{tbl} Take 1 tablet by mouth every 6 (six) hours as needed. [facility] traZODone 50 mg tablet 2022-0 6-12 00:00: 00 Yes 50mg Take 1 tablet by mouth at bedtime. [facility] traZODone 50 mg tablet 2022-0 6-12 00:00: 00 02-26 00:00 :00 No 1{tbl} Take 1 tablet by mouth at bedtime. [facility] hydrOXYzine 50 mg tablet 2022-0 5-23 00:00: 00 Yes 50mg Take 1 tablet by mouth every 6 (six) hours as needed. [facility] hydrOXYzine 50 mg tablet 2022-0 5-23 00:00: 00 02-26 00:00 :00 No 1{tbl} Take 1 tablet by mouth every 6 (six) hours as needed. [facility] mirtazapine 15 mg tablet 2022-0 5-12 00:00: 00 02-26 00:00 :00 No 15mg Take 1 tablet by mouth at bedtime. [facility] meloxicam 15 mg tablet 2022-0 5-09 00:00: 00 Yes 15mg Take 1 tablet by mouth in the morning. [facility] meloxicam 15 mg tablet 2022-0 5-09 00:00: 00 02-26 00:00 :00 No 1{tbl} Take 1 tablet by mouth in the morning. [facility] verapamil SR 120 mg ER tablet 08 00:00: 00 Yes 120mg Take 1 tablet by mouth in the morning. [facility] verapamil SR 120 mg ER tablet 08 00:00: 00 02-26 00:00 :00 No 1{tbl} Take 1 tablet by mouth in the morning. [facility] OLANZapine 10 mg tablet 09-06 00:00: 00 02-26 00:00 :00 No 10mg Take 1 tablet by mouth in the morning. [facility] cloNIDine 0.1 mg tablet 09-06 00:00: 00 02-26 00:00 :00 No TAKE 1-2 TABLETS BY MOUTH AT BEDTIME NEEDED FOR SLEEP AND ANXIETY [facility] NaCl 0.9% (NS) bolus infusion 1,000 mL 09-05 18:15: 00 09-05 18:08 :00 No 1000mL at 999 mL/hr, 1,000 mL, IV Infusion, ONCE, 1 dose, On Sat09/05/22 at 1315, STAT [facility] acetaminoph en (TYLENOL) tablet 650 mg 09-05 17:30: 00 09-05 17:24 :00 No 650mg 650 mg, Oral, ONCE, 1 dose, On Sat09/05/22 at 1230, [place] [facility] ondansetron (ZOFRAN (PF)) injection 4 mg 09-05 17:15: 00 09-05 17:23 :00 No 4mg 4 mg, Slow IV Push, ONCE, 1 dose, On Sat09/05/22 at 1215, [place] [facility] magnesium sulfate in water 2 gram/50 mL (4 %) infusion 2 g 09-05 16:15: 00 09-05 16:10 :00 No 2g 2 g, IV Piggyback, Administer over 30 Minutes, ONCE, 1 dose, On Sat09/05/22 at 1115, Routine [facility] diphenhydrA MINE (BENADRYL) injection 25 mg 09-05 16:00: 00 09-05 16:01 :00 No 25mg 25 mg, Slow IV Push, ONCE, 1 dose, On Sat09/05/22 at 1100, STAT [facility] ketorolac (TORADOL) injection 30 mg 09-05 15:30: 00 09-05 14:38 :00 No 30mg 30 mg, Slow IV Push, ONCE, 1 dose, On Sat09/05/22 at 1030, Routine [facility] NaCl 0.9% (NS) bolus infusion 1,000 mL 09-05 15:00: 00 09-05 17:12 :00 No 1000mL at 999 mL/hr, 1,000 mL, IV Infusion, ONCE, 1 dose, On Sat09/05/22 at 1000, STAT [facility] methylpredn isolone sod succ (SOLU-MEDRO L) injection 125 mg 09-05 14:45: 00 09-05 14:35 :00 No 125mg 125 mg, Intravenou s, ONCE, 1 dose, On Sat09/05/22 at 0945, 2 mL [facility] butalbital- acetaminoph en-caff (ESGIC) 50-325-40 mg tablet 1 tablet 09-05 14:00: 00 09-05 14:34 :00 No 1{tbl} 1 tablet, Oral, ONCE, 1 dose, On Sat09/05/22 at 0900, [place] [facility] diphenhydrA MINE (BENADRYL) injection 25 mg 09-05 14:00: 00 09-05 14:39 :00 No 25mg 25 mg, Slow IV Push, ONCE, 1 dose, On Sat09/05/22 at 0900, STAT [facility] proMETHazin e (PHENERGAN) 12.5 mg in NaCl 0.9% (NS) 50 mL IV piggyback 09-05 14:00: 00 09-05 14:40 :00 No 12.5mg 12.5 mg, IV Piggyback, ONCE, 1 dose, On Sat09/05/22 at 0900, [place] [facility] carvediloL 25 mg tablet 09-05 00:00: 00 02-26 00:00 :00 No [id number] 25mg Take 1 tablet by mouth in the morning and 1 tablet in the evening. Take with meals. [facility] losartan 50 mg tablet 09-05 00:00: 00 02-26 00:00 :00 No [id number] 50mg Take 1 tablet by mouth in the morning and 1 tablet in the evening. [facility] ibuprofen 800 mg tablet 08-05 00:00: 00 02-26 00:00 :00 No 800mg Take 1 tablet by mouth 3 (three) times daily as needed. [facility] cyclobenzap rine 10 mg tablet 08-05 00:00: 00 02-26 00:00 :00 No 10mg Take 1 tablet by mouth 3 (three) times daily as needed. [facility] maalox:diph enhydrAMINE :lidocaine 2 % viscous 1:1:1 ([facility]) oral suspension 15 mL 08-01 00:45: 00 08-01 00:44 :00 No 15mL 15 mL, Oral, ONCE, 1 dose, On Sat07/31/22 at 1945, [place] [facility] ketorolac (TORADOL) injection 15 mg 08-01 00:15: 00 08-01 00:44 :00 No 15mg 15 mg, Slow IV Push, ONCE, 1 dose, On Sat07/31/22 at 1915, Routine [facility] ondansetron (ZOFRAN (PF)) injection 4 mg 08-01 00:15: 00 08-01 00:46 :00 No 4mg 4 mg, Slow IV Push, ONCE, 1 dose, On Sat07/31/22 at 1915, [place] [facility] famotidine (PEPCID (PF)) injection 20 mg 08-01 00:15: 00 08-01 00:46 :00 No 20mg 20 mg, Slow IV Push, ONCE, 1 dose, On Sat07/31/22 at 1915, [place] [facility] ondansetron 4 mg disintegrat ing tablet 07-31 00:00: 00 05-19 00:00 :00 No [id number] 4mg Take 1 tablet by mouth every 8 (eight) hours as needed for Nausea and Vomiting (N/V). [facility] sucralfate 1 gram tablet 07-31 00:00: 00 05-19 00:00 :00 No [id number] 1g Take 1 tablet by mouth before meals and at bedtime. [facility] pantoprazol e 40 mg EC tablet 07-31 00:00: 00 08-15 04:59 :00 No [id number] 40mg Take 1 tablet by mouth in the morning for 14 days. [facility] tamsulosin 0.4 mg 24 hr capsule 07-25 00:00: 00 Yes .4mg Take 1 capsule by mouth in the morning. [facility] tamsulosin 0.4 mg 24 hr capsule 07-25 00:00: 00 02-26 00:00 :00 No 1{capsu le} Take 1 capsule by mouth in the morning. [facility] traMADoL 50 mg tablet -13 00:00: 00 02-26 00:00 :00 No 50mg Take 1 tablet by mouth. [facility] ibuprofen 600 mg tablet - 00:00: 00 07-31 00:00 :00 No [id number] 600mg Take 1 tablet by mouth every 6 (six) hours as needed for Pain (scale 4-6). [facility] citalopram 10 mg tablet - 00:00: 00 Yes 10mg Take 1 tablet by mouth in the morning. [facility] citalopram 10 mg tablet 06-29 00:00: 00 02-26 00:00 :00 No 1{tbl} Take 1 tablet by mouth in the morning. [facility] QUEtiapine 400 mg tablet 06-29 00:00: 00 02-26 00:00 :00 No [facility] gabapentin 600 mg tablet 06-29 00:00: 00 02-26 00:00 :00 No [facility] methylPREDN ISolone (MEDROL, ANABELA,) 4 mg tablets 06-23 00:00: 00 09-24 00:00 :00 No [id number] Take by mouth SEE-INSTRU CTIONS. follow package directions [facility] bromphenira mine-pseudo ephedrine-D M (BROMFED DM) 2-30-10 mg/5 mL syrup 06-23 00:00: 00 07-04 05:59 :00 No [id number] 5mL Take 5 mL by mouth 4 (four) times daily as needed for Cold symptoms for up to 10 days. [facility] methocarbam oL 750 mg tablet 06-23 00:00: 00 07-01 05:59 :00 No [id number] 750mg Take 1 tablet by mouth 4 (four) times daily for 7 days. [facility] magnesium sulfate in water 2 gram/50 mL (4 %) infusion 2 g 2021-05 21:00: 00 05-05 21:15 :00 No 2g 2 g, IV Piggyback, Administer over 15 Minutes, ONCE, 1 dose, On 05/05/22 at 1500, [facility] butalbital- acetaminoph en-caff (ESGIC) 50-325-40 mg tablet 1 tablet 2021-05 20:15: 00 05-05 20:56 :00 No 1{tbl} 1 tablet, Oral, ONCE, 1 dose, On 05/05/22 at 1415, [place] [facility] dexamethaso ne sod phos PF injection 10 mg 2021-05 20:15: 00 05-05 21:00 :00 No 10mg 10 mg, Slow IV Push, ONCE, 1 dose, On 05/05/22 at 1415, 1 mL [facility] NaCl 0.9% (NS) bolus infusion 1,000 mL 2021-05 20:00: 00 05-05 21:45 :00 No 1000mL at 999 mL/hr, 1,000 mL, IV Infusion, ONCE, 1 dose, On 05/05/22 at 1400, [place] [facility] diphenhydrA MINE (BENADRYL) injection 25 mg 2021-05 19:15: 00 05-05 19:42 :00 No 25mg 25 mg, Slow IV Push, ONCE, 1 dose, On 05/05/22 at 1315, STAT [facility] ondansetron (ZOFRAN (PF)) injection 4 mg 2021-05 19:15: 00 05-05 19:45 :00 No 4mg 4 mg, Slow IV Push, ONCE, 1 dose, On 05/05/22 at 1315, [place] [facility] ketorolac (TORADOL) injection 30 mg 2021-05 19:15: 00 05-05 19:44 :00 No 30mg 30 mg, Slow IV Push, ONCE, 1 dose, On 05/05/22 at 1315, Routine [facility] butalbital- acetaminoph en-caff 50-325-40 mg tablet 2021-05 00:00: 00 09-24 00:00 :00 No [id number] 1{tbl} Take 1 tablet by mouth every 4 (four) hours as needed for Pain (scale 7-10). [facility] HYDROcodone -acetaminop hen (NORCO) 10-325 mg tablet 1 tablet 2021-05 16:30: 00 04-26 15:23 :00 No 1{tbl} 1 tablet, Oral, ONCE, 1 dose, On Kathie 04/26/22 at 1030, Routine [facility] diphenhydrA MINE (BENADRYL) tablet 25 mg 2021-05 15:45: 00 04-26 15:53 :00 No 25mg 25 mg, Oral, ONCE, 1 dose, On Kathie 04/26/22 at 0945, [place] [facility] NaCl 0.9% (NS) bolus infusion 1,000 mL 2021-05 15:45: 00 04-26 15:55 :00 No 1000mL at 999 mL/hr, 1,000 mL, IV Piggyback, ONCE, 1 dose, On Kathie 04/26/22 at 0945, STAT [facility] ondansetron (ZOFRAN (PF)) injection 4 mg 2021-05 14:45: 00 04-26 14:52 :00 No 4mg 4 mg, Slow IV Push, ONCE, 1 dose, On Kathie 04/26/22 at 0845, Routine [facility] cephALEXin (KEFLEX) 500 mg capsule 2021-05 00:00: 00 05-04 05:59 :00 No [id number] 500mg Take 1 capsule by mouth in the morning and 1 capsule at noon and 1 capsule in the evening. Do all this for 7 days. [facility] ondansetron (ZOFRAN) 4 mg tablet 2021-05 00:00: 00 07-31 00:00 :00 No 4mg Take 1 tablet by mouth every 8 (eight) hours as needed for Nausea and Vomiting (N/V). [facility] galcanezuma b-gnlm prefilled (EMGALITY) subcutaneou s injection 2021-05 00:00: 00 02-26 00:00 :00 No [id number] 120mg inject 120 mg under the skin once every month. [facility] methocarbam oL (ROBAXIN) injection 1,000 mg 2021-05 04:00: 00 Yes 1000mg 1,000 mg, Intravenou s, Q8H, First dose on 04/07/22 at 2200, Until Discontinu ed, Routine [facility] ketorolac (TORADOL) injection 30 mg 2021-05 00:45: 00 04-07 23:45 :00 No 30mg 30 mg, Slow IV Push, ONCE, 1 dose, On 04/07/22 at 1845, Routine [facility] HYDROcodone -acetaminop hen (NORCO) 10-325 mg tablet 1 tablet 2021-05 00:30: 00 04-07 23:45 :00 No 1{tbl} 1 tablet, Oral, ONCE NOW, 1 dose, On 04/07/22 at 1830, Routine [facility] diphenhydrA MINE (BENADRYL) injection 12.5 mg 2021-05 23:45: 00 04-07 23:46 :00 No 12.5mg 12.5 mg, Slow IV Push, ONCE, 1 dose, On 04/07/22 at 1745, STAT [facility] butorphanol (STADOL) injection 1 mg 2021-05 23:15: 00 04-07 22:48 :00 No 1mg 1 mg, IV Push, ONCE, 1 dose, On 04/07/22 at 1715, Routine [facility] NaCl 0.9% (NS) bolus infusion 1,000 mL 2021-05 23:15: 00 04-07 23:49 :00 No 1000mL at 999 mL/hr, 1,000 mL, IV Infusion, ONCE, 1 dose, On 04/07/22 at 1715, [place] [facility] ketorolac (TORADOL) injection 15 mg 2021-05 19:30: 00 03-24 18:45 :00 No 15mg 15 mg, Slow IV Push, ONCE, 1 dose, On 03/24/22 at 1330, Routine [facility] butorphanol (STADOL) injection 1 mg 2021-05 18:00: 00 03-24 17:26 :00 No 1mg 1 mg, Intravenou s, ONCE, 1 dose, On 03/24/22 at 1200, Routine [facility] proMETHazin e (PHENERGAN) 25 mg in NaCl 0.9% (NS) 50 mL IV piggyback 2021-05 18:00: 00 03-24 18:13 :00 No 25mg 25 mg, IV Piggyback, ONCE, 1 dose, On 03/24/22 at 1200, [place] [facility] butorphanol (STADOL) injection 1 mg 2021-05 17:15: 00 03-24 16:26 :00 No 1mg 1 mg, IV Push, ONCE, 1 dose, On 03/24/22 at 1115, Routine [facility] diphenhydrA MINE (BENADRYL) injection 25 mg 2021-05 15:30: 00 03-24 15:40 :00 No 25mg 25 mg, Slow IV Push, ONCE, 1 dose, On 03/24/22 at 0930, STAT [facility] ondansetron (ZOFRAN (PF)) injection 4 mg 2021-05 15:30: 00 03-24 14:25 :00 No 4mg 4 mg, Slow IV Push, ONCE, 1 dose, On 03/24/22 at 0930, [place] [facility] NaCl 0.9% (NS) IV infusion 1,000 mL 2021-05 15:15: 00 03-24 17:25 :00 No 1000mL at 999 mL/hr, Intravenou s, ONCE, 1 dose, On 03/24/22 at 0915, [place] [facility] magnesium sulfate in water 2 gram/50 mL (4 %) infusion 2 g 2021-05 15:00: 00 03-24 14:47 :00 No 2g 2 g, IV Piggyback, Administer over 20 Minutes, ONCE, 1 dose, On 03/24/22 at 0900, Routine [facility] dexamethaso ne sod phos PF injection 6 mg 2021-05 14:15: 00 03-24 14:14 :00 No 6mg 6 mg, Slow IV Push, ONCE, 1 dose, On 03/24/22 at 0815, 1 mL [facility] diphenhydrA MINE (BENADRYL) injection 25 mg 2021-05 14:15: 00 03-24 14:16 :00 No 25mg 25 mg, Slow IV Push, ONCE, 1 dose, On 03/24/22 at 0815, STAT [facility] ALBUTEROL INHALE 2021-05 07:58: 13 03-24 00:00 :00 No [facility] rizatriptan 10 mg tablet 2021-05 00:00: 00 02-26 00:00 :00 No [id number] 10mg Take 1 tablet by mouth as needed for Migraine. May repeat in 2 hours if needed [facility] Butalbital- Acetaminoph en-Caff (FIORICET) 50-300-40 mg per capsule 2021-05 00:00: 00 02-26 00:00 :00 No [id number] 1{capsu le} Take 1 capsule by mouth every 6 (six) hours as needed for Other (headache) . [facility] magnesium oxide 200 mg magnesium Tab 2021-05 00:00: 00 04-07 00:00 :00 No [id number] 200mg Take 200 mg by mouth 2 (two) times daily. Indication s: headache [facility] SUMAtriptan 50 mg tablet 2021-05 00:00: 00 02-26 00:00 :00 No 50mg Take 1 tablet by mouth as needed for Migraine. Take one tablet at onset of migraine, may take another tablet 2 hours after initial dose if no relief with first dose. DO NOT EXCEED 100mg in a 24 hour period. [facility] FENTanyl PF (SUBLIMAZE (PF)) injection 50 mcg 2021-05 15:30: 00 03-15 14:56 :00 No 50ug 50 mcg, Slow IV Push, ONCE, 1 dose, On Kathie 03/15/22 at 1030, Routine [facility] proMETHazin e (PHENERGAN) tablet 25 mg 2021-05 14:45: 00 03-15 14:55 :00 No 25mg 25 mg, Oral, ONCE, 1 dose, On Kathie 03/15/22 at 0945, [place] [facility] FENTanyl PF (SUBLIMAZE (PF)) injection 50 mcg 2021-05 14:45: 00 03-15 13:58 :00 No 50ug 50 mcg, Slow IV Push, ONCE, 1 dose, On Kathie 03/15/22 at 0945, Routine [facility] ondansetron (ZOFRAN (PF)) injection 4 mg 2021-05 14:00: 00 03-15 13:58 :00 No 4mg 4 mg, Slow IV Push, ONCE, 1 dose, On Kathie 03/15/22 at 0900, [place] [facility] carvediloL 25 mg tablet 2021-05 00:00: 00 09-05 00:00 :00 No [id number] 25mg Take 1 tablet by mouth in the morning and 1 tablet in the evening. Take with meals. [facility] ondansetron 4 mg disintegrat ing tablet 2021-05 00:00: 00 04-07 00:00 :00 No [id number] 4mg Take 1 tablet by mouth every 8 (eight) hours as needed for Nausea and Vomiting (N/V). [facility] ketorolac 10 mg tablet 2021-05 00:00: 00 04-07 00:00 :00 No [id number] 10mg Take 1 tablet by mouth every 6 (six) hours as needed for Pain (scale 7-10). [facility] proMETHazin e 25 mg tablet 2021-05 00:00: 00 04-07 00:00 :00 No [id number] 25mg Take 1 tablet by mouth every 6 (six) hours as needed for N/V unresponsi ve to Ondansetro n. [facility] cephALEXin 500 mg capsule 2021-05 00:00: 03-19 05:59 :00 No [id number] 500mg Take 1 capsule by mouth 4 (four) times daily for 3 days. [facility] predniSONE 20 mg tablet 2021-05 00:00: 00 03-15 04:59 :00 No [id number] 20mg Take 1 tablet by mouth in the morning for 2 days. [facility] methocarbam oL (ROBAXIN) tablet 500 mg 2021-05 16:45: 00 03-11 17:08 :00 No 500mg 500 mg, Oral, ONCE, 1 dose, On 03/11/22 at 1200, [place] [facility] dexamethaso ne sod phos PF injection 10 mg 2021-05 16:00: 00 03-11 16:00 :00 No 10mg 10 mg, Slow IV Push, ONCE, 1 dose, On 03/11/22 at 1100, 1 mL [facility] diphenhydrA MINE (BENADRYL) injection 25 mg 2021-05 15:46: 00 03-11 16:00 :00 No 25mg 25 mg, Slow IV Push, ONCE, 1 dose, On 03/11/22 at 1100, STAT [facility] NaCl 0.9% (NS) IV infusion 1,000 mL 2021-05 15:45: 00 03-11 16:04 :00 No 1000mL at 999 mL/hr, Intravenou s, ONCE, 1 dose, On 03/11/22 at 1045, Routine [facility] butalbital- acetaminoph en-caff (ESGIC) 50-325-40 mg tablet 1 tablet 2021-05 15:00: 00 03-11 15:05 :00 No 1{tbl} 1 tablet, Oral, ONCE, 1 dose, On 03/11/22 at 1015, [place] [facility] ketorolac (TORADOL) injection 15 mg 2021-05 14:45: 00 03-11 15:05 :00 No 15mg 15 mg, Slow IV Push, ONCE, 1 dose, On 03/11/22 at 0945, [place] [facility] proMETHazin e (PHENERGAN) 12.5 mg in NaCl 0.9% (NS) 50 mL IV piggyback 2021-05 14:45: 00 03-11 15:04 :00 No 12.5mg 12.5 mg, IV Piggyback, ONCE, 1 dose, On 03/11/22 at 0945, [place] [facility] proMETHazin e 25 mg tablet 2021-05 00:00: 00 07-31 00:00 :00 No [id number] 25mg Take 1 tablet by mouth every 6 (six) hours as needed for Nausea and Vomiting (N/V). [facility] methocarbam oL 500 mg tablet 2021-05 00:00: 00 04-07 00:00 :00 No [id number] 500mg Take 1 tablet by mouth 3 (three) times daily as needed for Pain (scale 7-10). [facility] topiramate 25 mg tablet 2021-05 00:00: 00 02-26 00:00 :00 No [id number] 100mg Take 4 tablets by mouth in the morning. [facility] diphenhydrA MINE 25 mg capsule 2021-05 09:39: 59 02-27 00:00 :00 No 25mg Take 25 mg by mouth every 6 (six) hours as needed for Allergies. [facility] citalopram hydrobromid e (CITALOPRAM ORAL) 2021-05 09:39: 49 02-27 00:00 :00 No Take by mouth. [facility] carbamazepi ne (TEGRETOL ORAL) 2021-05 09:39: 28 02-27 00:00 :00 No Take by mouth. [facility] albuterol 90 mcg/actuati on inhaler 2021-05 00:00: 00 02-26 00:00 :00 No [id number] 2{puff} Inhale 2 Puffs every 6 (six) hours as needed for Wheezing or Shortness of Breath. [facility] SUMAtriptan 50 mg tablet 2021-0518 00:00: 00 03-21 00:00 :00 No 50mg Take 50 mg by mouth as needed for Migraine. Take one tablet at onset of migraine, may take another tablet 2 hours after initial dose if no relief with first dose. DO NOT EXCEED 100mg in a 24 hour period. [facility] benzonatate 200 mg capsule 2021-0518 00:00: 00 03-07 04:59 :00 No [id number] 200mg Take 1 capsule by mouth 3 (three) times daily as needed for Cough for up to 7 days. [facility] butalbital- acetaminoph en-caff (ESGIC) 50-325-40 mg tablet 1 tablet 2021-05 08:15: 00 02-21 08:09 :00 No 1{tbl} 1 tablet, Oral, ONCE, 1 dose, On Sat02/21/22 at 0315, [facility] butorphanol (STADOL) injection 1 mg 2021-05 08:15: 00 02-21 07:28 :00 No 1mg 1 mg, IV Push, ONCE, 1 dose, On Sat02/21/22 at 0315, Routine [facility] NaCl 0.9% (NS) bolus infusion 1,000 mL 2021-05 07:15: 00 02-21 08:40 :00 No 1000mL at 999 mL/hr, 1,000 mL, IV Infusion, ONCE, 1 dose, On Sat02/21/22 at 0215, [facility] proMETHazin e (PHENERGAN) 12.5 mg in NaCl 0.9% (NS) 50 mL IV piggyback 2021-05 06:30: 00 02-21 06:38 :00 No 12.5mg 12.5 mg, IV Piggyback, ONCE, 1 dose, On Sat02/21/22 at 0130, [facility] dexamethaso ne sod phos PF injection 10 mg 2021-0512 06:30: 00 02-21 06:38 :00 No 10mg 10 mg, Slow IV Push, ONCE, 1 dose, On Sat02/21/22 at 0130, 1 mL [facility] ketorolac (TORADOL) injection 15 mg 2021-05 06:30: 00 02-21 06:38 :00 No 15mg 15 mg, Slow IV Push, ONCE, 1 dose, On Sat02/21/22 at 0130, [place] [facility] diphenhydrA MINE (BENADRYL) injection 25 mg 2021-05 06:30: 00 02-21 06:38 :00 No 25mg 25 mg, Slow IV Push, ONCE, 1 dose, On Sat02/21/22 at 0130, STAT [facility] FENTanyl PF (SUBLIMAZE (PF)) injection 50 mcg 2021-05 20:30: 00 02-18 19:44 :00 No 50ug 50 mcg, Slow IV Push, ONCE, 1 dose, On 02/18/22 at 1530, Routine [facility] ketorolac (TORADOL) injection 30 mg 2021-05 20:15: 00 02-18 20:09 :00 No 30mg 30 mg, Slow IV Push, ONCE, 1 dose, On Sat02/18/22 at 1515, [place] [facility] iopamidol (ISOVUE 370-500 mL) injection 60 mL 2021-05 19:30: 00 02-18 17:30 :00 No [id number] 60mL 60 mL, Intravenou s, ONCE, 1 dose, On Sat02/18/22 at 1430, Routine [facility] proMETHazin e (PHENERGAN) 12.5 mg in NaCl 0.9% (NS) 50 mL IV piggyback 2021-05 18:15: 00 02-18 18:19 :00 No 12.5mg 12.5 mg, IV Piggyback, ONCE, 1 dose, [facility] (SUBLIMAZE (PF)) [facility] 50 mcg 2021-05 18:00: 00 02-18 17:26 :00 No 50ug 50 mcg, Slow IV Push, ONCE, 1 dose, On 02/18/22 at 1300, Routine [facility] ondansetron (ZOFRAN (PF)) injection 4 mg 2021-05 17:15: 00 02-18 17:27 :00 No 4mg 4 mg, Slow IV Push, ONCE, 1 dose, [facility]18[facility]22 [facility] 1215[facility] (2 mg/mL) injection 4 mg 01-18 15:15: 00 01-18 14:49 :00 No 4mg 4 mg, Slow IV Push, ONCE, 1 dose, On Kathie 01/18/22 at 1015, STAT [facility] ondansetron (ZOFRAN (PF)) injection 4 mg 01-18 13:30: 00 01-18 13:33 :00 No 4mg 4 mg, Slow IV Push, ONCE, 1 dose, On Kathie 01/18/22 at 0830, [facility] morpHINE (4 mg/mL) injection 4 mg 01-18 13:30: 00 01-18 13:34 :00 No 4mg 4 mg, Slow IV Push, ONCE, 1 dose, On Kathie 01/18/22 at 0830, STAT [facility] morpHINE (4 mg/mL) injection 4 mg 01-18 12:30: 00 01-18 11:39 :00 No 4mg 4 mg, Slow IV Push, ONCE, 1 dose, On Kathie 01/18/22 at 0730, STAT [facility] famotidine (PEPCID (PF)) injection 20 mg 01-18 11:30: 00 01-18 10:52 :00 No 20mg 20 mg, Slow IV Push, ONCE, 1 dose, On Kathie 01/18/22 at 0630, [facility] ondansetron (ZOFRAN (PF)) injection 4 mg 01-18 11:30: 00 01-18 10:52 :00 No 4mg 4 mg, Slow IV Push, ONCE, 1 dose, On Kathie 01/18/22 at 0630, [place] [facility] iodixanoL (VISIPAQUE 270-150 mL) injection 80 mL 01-18 11:21: 00 01-18 11:15 :00 No [id number] 80mL 80 mL, Intravenou s, ONCE, 1 dose, On Kathie 01/18/22 at 0630, Routine [facility] NaCl 0.9% (NS) bolus infusion 1,000 mL 01-18 11:15: 00 01-18 12:59 :00 No 1000mL at 999 mL/hr, 1,000 mL, IV Infusion, ONCE, 1 dose, On Kathie 01/18/22 at 0615, [place] [facility] morpHINE (4 mg/mL) injection 4 mg 01-18 10:45: 00 01-18 10:52 :00 No 4mg 4 mg, Slow IV Push, ONCE, 1 dose, On Kathie 01/18/22 at 0545, STAT [facility] traMADoL 50 mg tablet 01-18 00:00: 00 02-27 00:00 :00 No [id number] 50mg Take 1 tablet by mouth every 6 (six) hours as needed for Pain (scale 7-10). Indication s: acute pain [facility] ondansetron 4 mg disintegrat ing tablet 01-18 00:00: 00 02-27 00:00 :00 No [id number] 4mg Take 1 tablet by mouth every 8 (eight) hours as needed for Nausea and Vomiting (N/V). [facility] ibuprofen 600 mg tablet 01-18 00:00: 00 02-27 00:00 :00 No [id number] 600mg Take 1 tablet by mouth every 6 (six) hours as needed for Pain (scale 4-6). [facility] predniSONE 20 mg tablet 01-16 00:00: 00 01-24 04:59 :00 No [id number] 40mg Take 2 tablets by mouth in the morning for 7 days. [facility] morpHINE (4 mg/mL) injection 4 mg 01-15 16:15: 00 01-15 15:28 :00 No 4mg 4 mg, Slow IV Push, ONCE, 1 dose, On Sat01/15/22 at 1115, [facility] proMETHazin e (PHENERGAN) 12.5 mg in NaCl 0.9% (NS) 50 mL IV piggyback 01-15 15:30: 00 01-15 15:28 :00 No 12.5mg 12.5 mg, IV Piggyback, ONCE, 1 dose, On Sat01/15/22 at 1030, [facility] NaCl 0.9% (NS) bolus infusion 1,000 mL 01-15 15:00: 00 01-15 15:38 :00 No 1000mL at 999 mL/hr, 1,000 mL, IV Infusion, ONCE, 1 dose, On Sat01/15/22 at 1000, [facility] morpHINE (4 mg/mL) injection 4 mg 01-15 15:00: 00 01-15 14:37 :00 No 4mg 4 mg, Slow IV Push, ONCE, 1 dose, On Sat01/15/22 at 1000, [facility] ondansetron (ZOFRAN (PF)) injection 8 mg 01-15 14:15: 00 01-15 14:37 :00 No 8mg 8 mg, Slow IV Push, ONCE, 1 dose, On Sat01/15/22 at 0915, [facility] dexamethaso ne sod phos PF injection 10 mg 01-15 14:15: 00 01-15 14:37 :00 No 10mg 10 mg, Slow IV Push, ONCE, 1 dose, On Sat01/15/22 at 0915, 1 mL [facility] proMETHazin e 25 mg tablet 9-05 00:00: 00 02-27 00:00 :00 No [id number] 25mg Take 1 tablet by mouth every 6 (six) hours as needed for Nausea and Vomiting (N/V). [facility] ondansetron (ZOFRAN-ODT ) disintegrat ing tablet 4 mg 01-09 01:45: 00 01-09 00:56 :00 No 4mg 4 mg, Oral, ONCE, 1 dose, On Sat01/08/22 at 2045, Routine [facility] HYDROcodone -acetaminop hen (NORCO 5) 5-325 mg tablet 1 tablet 01-09 00:45: 00 01-09 00:37 :00 No 1{tbl} 1 tablet, Oral, ONCE, 1 dose, On Sat01/08/22 at 1945, [place] [facility] diphenhydrA MINE (BENADRYL) injection 25 mg 01-08 23:45: 00 01-08 23:51 :00 No 25mg 25 mg, Slow IV Push, ONCE, 1 dose, On Sat01/08/22 at 1845, STAT [facility] dexamethaso ne sod phos PF injection 10 mg 01-08 23:45: 00 01-08 23:50 :00 No 10mg 10 mg, Slow IV Push, ONCE, 1 dose, On Sat01/08/22 at 1845, 1 mL [facility] ketorolac (TORADOL) injection 30 mg 01-08 23:45: 00 01-08 23:51 :00 No 30mg 30 mg, Slow IV Push, ONCE, 1 dose, On Sat01/08/22 at 1845, [place] [facility] acetaminoph en (TYLENOL ARTHRITIS PAIN) 650 mg CR tablet 01-08 00:00: 00 04-07 00:00 :00 No [id number] 650mg Take 1 tablet by mouth every 8 (eight) hours as needed for Pain. [facility] ondansetron 4 mg disintegrat ing tablet 01-08 00:00: 00 02-27 00:00 :00 No [id number] 4mg Take 1 tablet by mouth every 8 (eight) hours as needed for Nausea and Vomiting (N/V). [facility] ketorolac 10 mg tablet 01-08 00:00: 00 02-27 00:00 :00 No [id number] 10mg Take 1 tablet by mouth every 6 (six) hours as needed for Pain (scale 4-6) or Pain (scale 7-10). [facility] metaxalone (SKELAXIN) 800 mg tablet 01-08 00:00: 00 02-27 00:00 :00 No [id number] 800mg Take 1 tablet by mouth in the morning and 1 tablet at noon and 1 tablet in the evening. [facility] metroNIDAZO LE 500 mg tablet 12-18 00:00: 00 02-27 00:00 :00 No 500mg Take 1 tablet by mouth every 12 (twelve) hours. [facility] trazodone/d ietary supp. no.8 (TRAZAMINE ORAL) 12-12 15:08: 46 12-12 00:00 :00 No Take by mouth. [facility] diphenhydrA MINE 25 mg capsule 12-12 13:03: 04 Yes 25mg Take 25 mg by mouth every 6 (six) hours as needed for Allergies. [facility] carbamazepi ne (TEGRETOL ORAL) 12-12 13:03: 04 Yes Take by mouth. [facility] traZODone 50 mg tablet 12-12 00:00: 00 02-27 00:00 :00 No [id number] 50mg Take 1 tablet by mouth at bedtime. [facility] SERTraline (ZOLOFT) 50 mg tablet 12-12 00:00: 00 02-27 00:00 :00 No [id number] 50mg Take 1 tablet by mouth in the morning. [facility] sulfamethox azole-trime thoprim (BACTRIM DS) 800-160 mg per tablet 12-12 00:00: 00 12-16 04:59 :00 No [id number] 1{tbl} Take 1 tablet by mouth in the morning and 1 tablet in the evening. Do all this for 3 days. [facility] ibuprofen 600 mg tablet 11-24 00:00: 00 02-27 00:00 :00 No [id number] 600mg Take 1 tablet by mouth every 6 (six) hours as needed for Pain (scale 4-6). [facility] acetaminoph en-codeine 300-30 mg tablet 11-24 00:00: 00 12-12 00:00 :00 No [id number] 1{tbl} Take 1 tablet by mouth every 4 (four) hours as needed for Pain (scale 4-6). Indication s: acute pain [facility] bromphenira mine-pseudo ephedrine-D M (BROMFED DM) 2-30-10 mg/5 mL syrup 11-18 00:00: 00 03-24 00:00 :00 No [id number] 5mL Take 5 mL by mouth 4 (four) times daily as needed for Congestion /Allergies or Cough. [facility] naproxen 500 mg tablet 11-18 00:00: 00 02-27 00:00 :00 No [id number] 500mg Take 1 tablet by mouth every 8 (eight) hours as needed for Pain (scale 4-6). [facility] cyclobenzap rine 10 mg tablet 11-18 00:00: 00 02-27 00:00 :00 No [id number] 10mg Take 1 tablet by mouth at bedtime as needed for Muscle Spasms. [facility] ibuprofen 100 mg/5 mL oral suspension 10-25 00:00: 00 02-27 00:00 :00 No [id number] 605mg Take 30.25 mL by mouth every 6 (six) hours as needed for Pain (scale 4-6) or Temp > 38.5 C. [facility] acetaminoph en 160 mg/5 mL liquid 6-15 00:00: 00 12-12 00:00 :00 No [id number] 608mg Take 19 mL by mouth every 6 (six) hours as needed for Fever. [facility] DULoxetine 60 mg capsule 10-06 00:00: 00 02-27 00:00 :00 No [facility] traZODone 50 mg tablet 10-06 00:00: 00 12-12 00:00 :00 No [facility] mometasone 50 mcg/actuati on nasal spray 09-28 00:00: 00 02-27 00:00 :00 No [id number] 1{spray } Use 1 Boaz in each nostril 2 (two) times daily. [facility] cetirizine (ZYRTEC) 10 mg tablet 09-25 00:00: 00 02-27 00:00 :00 No [id number] 10mg Take 1 tablet by mouth daily. [facility] DULoxetine 30 mg capsule 09-18 00:00: 00 02-27 00:00 :00 No [facility] gabapentin 300 mg capsule 09-18 00:00: 00 02-27 00:00 :00 No [facility] ondansetron 4 mg tablet 09-18 00:00: 00 02-27 00:00 :00 No [facility] amLODIPine 5 mg tablet 09-01 00:00: 00 02-27 00:00 :00 No 5mg Take 5 mg by mouth. [facility] buPROPion XL 150 mg 24 hr tablet -20 00:00: 00 02-27 00:00 :00 No 150mg Take 150 mg by mouth. [facility] proMETHazin e 25 mg tablet -05 00:00: 00 09-12 00:00 :00 No [id number] 25mg Take 1 tablet by mouth every 6 (six) hours as needed for Nausea and Vomiting (N/V). [facility] traMADoL 50 mg tablet 05 00:00: 09-12 00:00 :00 No [id number] 50mg Take 1 tablet by mouth every 6 (six) hours as needed (pain). Indication s: acute pain [facility] cyclobenzap rine 10 mg tablet 08-07 00:00: 00 08-22 04:59 :00 No [id number] 10mg Take 1 tablet by mouth 3 (three) times daily for 14 days. [facility] ibuprofen 800 mg tablet 08-07 00:00: 00 08-22 04:59 :00 No [id number] 800mg Take 1 tablet by mouth every 6 (six) hours as needed for Pain (scale 1-3) for up to 14 days. [facility] diclofenac 75 mg EC tablet 08-01 00:00: 00 09-12 00:00 :00 No [facility] orphenadrin e 100 mg SR tablet 08-01 00:00: 09-12 00:00 :00 No [facility] divalproex 125 mg EC tablet 07-21 00:00: 00 09-12 00:00 :00 No [id number] 125mg Take 1 tablet by mouth every 12 (twelve) hours. [facility] divalproex Sprinkles 125 mg SPRINKLE capsule 07-21 00:00: 00 09-12 00:00 :00 No [facility] ibuprofen 600 mg tablet 307 00:00: 00 08-01 04:59 :00 No [id number] 600mg Take 1 tablet by mouth every 6 (six) hours as needed for Temp > 38.5 C for up to 14 days. [facility] acetaminoph en-codeine 300-30 mg tablet 1-30 00:00: 09-12 00:00 :00 No TAKE 1 TABLET BY MOUTH EVERY 4 HOURS NEEDED FOR PAIN FOR 2 DAYS [facility] fluticasone propionate 110 mcg/actuati on inhaler 05-31 00:00: 00 09-28 00:00 :00 No [id number] 2{puff} Inhale 2 Puffs every 12 (twelve) hours. [facility] benzonatate (TESSALON PERLES) 100 mg capsule 05-25 00:00: 00 09-25 00:00 :00 No [id number] 100mg Take 1 capsule by mouth every 8 (eight) hours as needed for Cough. [facility] carvediloL 25 mg tablet 2020-05 00:00: 00 02-27 00:00 :00 No 25mg Take 1 tablet by mouth 2 (two) times daily with meals. [facility] losartan 50 mg tablet 2020-05 00:00: 00 02-27 00:00 :00 No 50mg Take 1 tablet by mouth 2 (two) times daily. [facility] proMETHazin e 25 mg tablet 2020-05 00:00: 00 09-12 00:00 :00 No [facility] methocarbam oL (ROBAXIN) 500 mg tablet 2020-05 00:00: 00 05-25 00:00 :00 No [id number] 500mg Take 1 tablet by mouth every 6 (six) hours as needed (MUSCLE SPASM). [facility] vitamin B-12 (VITAMIN B-12) 500 mcg tablet 2020-05 00:00: 00 09-12 00:00 :00 No [id number] 500ug Take 1 tablet by mouth daily. [facility] methylPREDN ISolone 4 mg tablets 2020-05 1- 00:00: 00 05-25 00:00 :00 No [id number] Follow package directions [facility] fluticasone propion-chel meteroL 115-21 mcg/actuati on inhaler 02-09 00:00: 05-25 00:00 :00 No [id number] 2{puff} Inhale 2 Puffs 2 (two) times daily. Rinse mouth after each use. [facility] albuterol 2.5 mg /3 mL (0.083 %) nebulizer solution 02-09 00:00: 00 05-25 00:00 :00 No [id number] 2.5mg Inhale 3 mL every 6 (six) hours as needed for Wheezing or Shortness of Breath. [facility] methocarbam oL (ROBAXIN) 500 mg tablet 02-09 00:00: 00 05-02 00:00 :00 No [id number] 500mg Take 1 tablet by mouth every 6 (six) hours as needed (MUSCLE SPASM). [facility] bromphenira mine-pseudo ephedrine-D M (BROMFED DM) 2-30-10 mg/5 mL syrup 01-31 00:00: 00 02-09 00:00 :00 No [id number] 5mL Take 5 mL by mouth 4 (four) times daily as needed for Cough. [facility] methylPREDN ISolone (MEDROL, ANABELA,) 4 mg tablets 01-20 00:00: 00 02-09 00:00 :00 No [id number] Take by mouth SEE-INSTRU CTIONS. follow package directions [facility] albuterol 90 mcg/actuati on inhaler 01-12 00:00: 00 05-25 00:00 :00 No [id number] 2{puff} Inhale 2 Puffs every 4 (four) hours as needed for Wheezing or Shortness of Breath. [facility] benzonatate 100 mg capsule 01-12 00:00: 00 02-19 00:00 :00 No [id number] 100mg Take 1 capsule by mouth 3 (three) times daily as needed for Cough. [facility] losartan 50 mg tablet 12-23 00:00: 00 2021- 09-30 00:00 :00 No 50mg Take 1 tablet by mouth 2 (two) times daily. [facility] topiramate 25 mg tablet 7-13 00:00: 00 12-26 00:00 :00 No 25mg Take 1 tablet by mouth 2 (two) times daily. [facility] OXcarbazepi ne 150 mg tablet 7-12 00:00: 00 02-09 00:00 :00 No [facility] FLUoxetine 40 mg capsule 7-12 00:00: 00 12-26 00:00 :00 No [facility] traZODone 100 mg tablet 7-12 00:00: 00 12-26 00:00 :00 No [facility] dicyclomine 20 mg tablet 6-10 00:00: 00 12-26 00:00 :00 No [id number] 20mg Take 1 tablet by mouth 4 (four) times daily. [facility] proMETHazin e 25 mg tablet 6-10 00:00: 00 12-26 00:00 :00 No [id number] 25mg Take 1 tablet by mouth every 6 (six) hours as needed for Nausea and Vomiting (N/V). [facility] acetaminoph en-codeine 300-30 mg tablet 6-05 00:00: 00 12-26 00:00 :00 No TAKE 2 TABLETS BY MOUTH EVERY 6 HOURS NEEDED FOR PAIN [facility] oxybutynin (DITROPAN XL) 10 mg 24 hr tablet 5-30 00:00: 00 12-26 00:00 :00 No [id number] 10mg Take 1 tablet by mouth daily. [facility] ondansetron (ZOFRAN ODT) 4 mg disintegrat ing tablet 5-30 00:00: 00 12-26 00:00 :00 No [id number] 4mg Take 1 tablet by mouth every 8 (eight) hours as needed for Nausea and Vomiting (N/V). [facility] ciprofloxac in HCl 500 mg tablet 10-09 00:00: 00 11-22 00:00 :00 No [id number] 500mg Take 1 tablet by mouth 2 (two) times daily. [facility] predniSONE 20 mg tablet 10-04 00:00: 00 11-22 00:00 :00 No [id number] 20mg Take 1 tablet by mouth daily. Days 1-2: 3 pills (60 mg). Days 3-4: 2 pills (40 mg). Days 5-6: 1 pill (20 mg). Days 7-8: 1/2 pill (10 mg). Then stop [facility] mupirocin 2 % ointment 09-29 00:00: 00 12-26 00:00 :00 No [id number] Apply to both nostrils at bedtime [facility] naproxen sodium (ANAPROX DS) 550 mg tablet 09-28 00:00: 00 12-26 00:00 :00 No [id number] 550mg Take 1 tablet by mouth 2 (two) times daily with meals. [facility] losartan 25 mg tablet 09-16 00:00: 00 12-22 00:00 :00 No 25mg Take 1 tablet by mouth 2 (two) times daily. [facility] nadoloL 20 mg tablet 09-16 00:00: 00 12-22 00:00 :00 No [id number] Please take Nadalol 40 mg QAM [facility] LOESTRIN FE (LOESTRIN FE 1/20) 1 mg-20 mcg (21)/75 mg (7) tablet 09-06 00:00: 00 02-09 00:00 :00 No [id number] 1{tbl} Take 1 tablet by mouth daily. [facility] FLUoxetine 20 mg capsule 09-06 00:00: 00 11-22 00:00 :00 No [id number] 20mg Take 1 capsule by mouth daily. [facility] traZODone 50 mg tablet 09-06 00:00: 00 11-22 00:00 :00 No [id number] 50mg Take 1 tablet by mouth at bedtime. [facility] nadoloL 20 mg tablet 08-31 00:00: 00 09-16 00:00 :00 No [id number] Please take Nadalol 40 mg QAM and 20 mg QPM [facility] methocarbam oL (ROBAXIN) 500 mg tablet 08-18 00:00: 00 09-30 00:00 :00 No [id number] 500mg Take 1 tablet by mouth every 6 (six) hours as needed (MUSCLE SPASM). [facility] traMADoL (ULTRAM) 50 mg tablet 08-18 00:00: 00 09-30 00:00 :00 No [id number] 50mg Take 1 tablet by mouth every 6 (six) hours as needed for Pain (scale 7-10). Indication s: acute pain [facility] ibuprofen 800 mg tablet 08-14 00:00: 00 11-22 00:00 :00 No TAKE 1 TABLET BY MOUTH EVERY 12 HOURS NEEDED FOR PAIN [facility] ondansetron (ZOFRAN ODT) 4 mg disintegrat ing tablet 08-01 00:00: 00 09-30 00:00 :00 No [id number] 4mg Take 1 tablet by mouth every 8 (eight) hours as needed for Nausea and Vomiting (N/V). [facility] ketorolac 10 mg tablet 08-01 00:00: 00 09-30 00:00 :00 No [id number] 10mg Take 1 tablet by mouth every 6 (six) hours as needed for Pain (scale 4-6). [facility] ciprofloxac in HCl 250 mg tablet 08-01 00:00: 00 09-30 00:00 :00 No [id number] 250mg Take 1 tablet by mouth 2 (two) times daily. [facility] lidocaine 5 % (700 mg/patch) patch 07-22 00:00: 09-30 00:00 :00 No [id number] 1{patch } Apply 1 Patch to area(s) every 24 (twenty-fo ur) hours as needed for Localized pain. [facility] topiramate 25 mg tablet 05-17 00:00: 00 11-22 00:00 :00 No 25mg Take 1 tablet by mouth 2 (two) times daily. [facility] metoprolol succinate XL 25 mg 24 hr tablet 2019-05 00:00: 06-15 00:00 :00 No [id number] 12.5mg Take 0.5 tablets by mouth 2 (two) times daily for 90 days. [facility] FLUoxetine 20 mg capsule 2019-05 00:00: 00 09-06 00:00 :00 No 20mg Take 20 mg by mouth daily. [facility] norgestimat e-ethinyl estradiol 0.25-35 mg-mcg per tablet 11-17 00:00: 04-15 00:00 :00 No [id number] 1{tbl} Take 1 tablet by mouth daily. [facility] buPROPion XL (WELLBUTRIN XL) 150 mg 24 hr tablet 08-12 00:00: 00 01-04 00:00 :00 No [id number] 150mg Take 1 tablet by mouth daily. [facility] acetaminoph en 325 mg tablet 07-22 00:00: 01-04 00:00 :00 No [id number] 650mg Take 2 tablets by mouth every 6 (six) hours as needed for Pain (scale 1-3) or Pain (scale 4-6). [facility] vitamin w/FA tablet 07-22 00:00: 00 01-04 00:00 :00 No [id number] 1{tbl} Take 1 tablet by mouth daily. [facility] docusate calcium 240 mg capsule 07-22 00:00: 01-04 00:00 :00 No [id number] 240mg Take 1 capsule by mouth once daily as needed for Constipati on. [facility] ferrous sulfate 325 mg (65 mg iron) tablet 12 00:00: 00 01-04 00:00 :00 No [id number] 325mg Take 1 tablet by mouth 2 (two) times daily. [facility] ibuprofen 600 mg tablet -12 00:00: 00 01-04 00:00 :00 No [id number] 600mg Take 1 tablet by mouth every 6 (six) hours as needed (Pain). Take with food or milk. [facility] ALBUTEROL 90 mcg/actuati on inhaler 1-14 00:00: 05-01 00:00 :00 No [id number] 103 INHALE 2 PUFFS BY MOUTH EVERY 6 HOURS NEEDED FOR WHEEZING FOR SHORTNESS OF BREATH [facility] buPROPion SR (WELLBUTRIN SR) 150 mg SR tablet 05-21 00:00: 01-04 00:00 :00 No [id number] 150mg Take 1 tablet by mouth 2 (two) times daily. [facility] busPIRone 10 mg tablet 05-21 00:00: 01-04 00:00 :00 No [id number] 109 10mg Take 1 tablet by mouth 3 (three) times daily. [facility] Immunizations Ordered Immunization Name Filled Immunization Name Date Status Comments Source Influenza Virus Vaccine Quad IM, Preserv and ABX Free 6 MO-64 YRS 2022-02-27 00:00:00 Completed [facility] Influenza Virus Vaccine Quad IM, Preserv and ABX Free 6 MO-64 YRS 2022-02-27 00:00:00 Completed [facility] Influenza Virus Vaccine Quad IM, Preserv and ABX Free 6 MO-64 YRS 2022-02-27 00:00:00 Completed [facility] Influenza Virus Vaccine Quad IM, Preserv and ABX Free 6 MO-64 YRS 2022-02-27 00:00:00 Completed [facility] Influenza Virus Vaccine Quad IM, Preserv and ABX Free 6 MO-64 YRS 2022-02-27 00:00:00 Completed [facility] Influenza Virus Vaccine Quad IM, Preserv and ABX Free 6 MO-64 YRS 2022-02-27 00:00:00 Completed [facility] Influenza Virus Vaccine Quad IM, Preserv and ABX Free 6 MO-64 YRS 2022-02-27 00:00:00 Completed [facility] Influenza Virus Vaccine Quad IM, Preserv and ABX Free 6 MO-64 YRS 2022-02-27 00:00:00 Completed [facility] Influenza Virus Vaccine Quad IM, Preserv and ABX Free 6 MO-64 YRS 2022-02-27 00:00:00 Completed [facility] Influenza Virus Vaccine Quad IM, Preserv and ABX Free 6 MO-64 YRS 2022-02-27 00:00:00 Completed [facility] Influenza Virus Vaccine Quad IM, Preserv and ABX Free 6 MO-64 YRS 2022-02-27 00:00:00 Completed [facility] Influenza Virus Vaccine Quad IM, Preserv and ABX Free 6 MO-64 YRS 2022-02-27 00:00:00 Completed [facility] Influenza Virus Vaccine Quad IM, Preserv and ABX Free 6 MO-64 YRS 2022-02-27 00:00:00 Completed [facility] Influenza Virus Vaccine Quad IM, Preserv and ABX Free 6 MO-64 YRS 2022-02-27 00:00:00 Completed [facility] Influenza Virus Vaccine Quad IM, Preserv and ABX Free 6 MO-64 YRS 2022-02-27 00:00:00 Completed [facility] Influenza Virus Vaccine Quad IM, Preserv and ABX Free 6 MO-64 YRS 2022-02-27 00:00:00 Completed [facility] Influenza Virus Vaccine Quad IM, Preserv and ABX Free 6 MO-64 YRS 2022-02-27 00:00:00 Completed [facility] Influenza Virus Vaccine Quad IM, Preserv and ABX Free 6 MO-64 YRS 2022-02-27 00:00:00 Completed [facility] Influenza Virus Vaccine Quad IM, Preserv and ABX Free 6 MO-64 YRS 2022-02-27 00:00:00 Completed [facility] Influenza Virus Vaccine Quad IM, Preserv and ABX Free 6 MO-64 YRS 2022-02-27 00:00:00 Completed [facility] Influenza Virus Vaccine Quad IM, Preserv and ABX Free 6 MO-64 YRS 2022-02-27 00:00:00 Completed [facility] Influenza Virus Vaccine Quad IM, Preserv and ABX Free 6 MO-64 YRS 2022-02-27 00:00:00 Completed [facility] Influenza Virus Vaccine Quad IM, Preserv and ABX Free 6 MO-64 YRS 2022-02-27 00:00:00 Completed [facility] Influenza Virus Vaccine Quad IM, Preserv and ABX Free 6 MO-64 YRS 2022-02-27 00:00:00 Completed [facility] Influenza Virus Vaccine Quad IM, Preserv and ABX Free 6 MO-64 YRS 2022-02-27 00:00:00 Completed [facility] Influenza Virus Vaccine Quad IM, Preserv and ABX Free 6 MO-64 YRS 2022-02-27 00:00:00 Completed [facility] Influenza Virus Vaccine Quad IM, Preserv and ABX Free 6 MO-64 YRS 2022-02-27 00:00:00 Completed [facility] Influenza Virus Vaccine Quad IM, Preserv and ABX Free 6 MO-64 YRS 2022-02-27 00:00:00 Completed [facility] Influenza Virus Vaccine Quad IM, Preserv and ABX Free 6 MO-64 YRS 2022-02-27 00:00:00 Completed [facility] Influenza Virus Vaccine Quad IM, Preserv and ABX Free 6 MO-64 YRS 2022-02-27 00:00:00 Completed [facility] Influenza Virus Vaccine Quad IM, Preserv and ABX Free 6 MO-64 YRS 2022-02-27 00:00:00 Completed [facility] Influenza Virus Vaccine Quad IM, Preserv and ABX Free 6 MO-64 YRS 2022-02-27 00:00:00 Completed [facility] Influenza Virus Vaccine Quad IM, Preserv and ABX Free 6 MO-64 YRS 2022-02-27 00:00:00 Completed [facility] Influenza Virus Vaccine Quad IM, Preserv and ABX Free 6 MO-64 YRS 2022-02-27 00:00:00 Completed [facility] Influenza Virus Vaccine Quad IM, Preserv and ABX Free 6 MO-64 YRS 2022-02-27 00:00:00 Completed [facility] Influenza Virus Vaccine Quad IM, Preserv and ABX Free 6 MO-64 YRS 2022-02-27 00:00:00 Completed [facility] Influenza Virus Vaccine Quad IM, Preserv and ABX Free 6 MO-64 YRS 2022-02-27 00:00:00 Completed [facility] Influenza Virus Vaccine Quad IM, Preserv and ABX Free 6 MO-64 YRS 2022-02-27 00:00:00 Completed [facility] Influenza Virus Vaccine Quad IM, Preserv and ABX Free 6 MO-64 YRS 2022-02-27 00:00:00 Completed [facility] Influenza Virus Vaccine Quad IM, Preserv and ABX Free 6 MO-64 YRS 2022-02-27 00:00:00 Completed [facility] Influenza Virus Vaccine Quad IM, Preserv and ABX Free 6 MO-64 YRS 2022-02-27 00:00:00 Completed [facility] Influenza Virus Vaccine Quad IM, Preserv and ABX Free 6 MO-64 YRS (FLUCELVAX) 2022-02-27 00:00:00 Completed [facility] Influenza Virus Vaccine Quad IM, Preserv and ABX Free 6 MO-64 YRS (FLUCELVAX) 2022-02-27 00:00:00 Completed [facility] Influenza Virus Vaccine Quad IM, Preserv and ABX Free 6 MO-64 YRS (FLUCELVAX) 2022-02-27 00:00:00 Completed [facility] Influenza Virus Vaccine Quad .5 mL IM 6+ MO 2022-02-21 00:00:00 Completed [facility] Influenza Virus Vaccine Quad .5 mL IM 6+ MO 2022-02-21 00:00:00 Completed [facility] Influenza Virus Vaccine Quad .5 mL IM 6+ MO 2022-02-21 00:00:00 Completed [facility] Influenza Virus Vaccine Quad .5 mL IM 6+ MO 2022-02-21 00:00:00 Completed [facility] Influenza Virus Vaccine Quad .5 mL IM 6+ MO 2022-02-21 00:00:00 Completed [facility] Influenza Virus Vaccine Quad .5 mL IM 6+ MO 2022-02-21 00:00:00 Completed [facility] Influenza Virus Vaccine Quad .5 mL IM 6+ MO 2022-02-21 00:00:00 Completed [facility] Influenza Virus Vaccine Quad .5 mL IM 6+ MO 2022-02-21 00:00:00 Completed [facility] Influenza Virus Vaccine Quad .5 mL IM 6+ MO 2022-02-21 00:00:00 Completed [facility] Influenza Virus Vaccine Quad .5 mL IM 6+ MO 2022-02-21 00:00:00 Completed [facility] Influenza Virus Vaccine Quad .5 mL IM 6+ MO 2022-02-21 00:00:00 Completed [facility] Influenza Virus Vaccine Quad .5 mL IM 6+ MO 2022-02-21 00:00:00 Completed [facility] Influenza Virus Vaccine Quad .5 mL IM 6+ MO (FLUZONE/FLULAVAL/F LUARIX) 2022-02-21 00:00:00 Completed [facility] Influenza Virus Vaccine Quad .5 mL IM 6+ MO (FLUZONE/FLULAVAL/F LUARIX) 2022-02-21 00:00:00 Completed [facility] Influenza Virus Vaccine Quad .5 mL IM 6+ MO (FLUZONE/FLULAVAL/F LUARIX) 2022-02-21 00:00:00 Completed [facility] Influenza Virus Vaccine 2021-06-11 00:00:00 Completed [facility] Influenza Virus Vaccine 2021-06-11 00:00:00 Completed [facility] Influenza Virus Vaccine 2021-06-11 00:00:00 Completed [facility] Influenza Virus Vaccine 2021-06-11 00:00:00 Completed [facility] Influenza Virus Vaccine 2021-06-11 00:00:00 Completed [facility] Influenza Virus Vaccine 2021-06-11 00:00:00 Completed [facility] Influenza Virus Vaccine 2021-06-11 00:00:00 Completed [facility] Influenza Virus Vaccine 2021-06-11 00:00:00 Completed [facility] Influenza Virus Vaccine 2021-06-11 00:00:00 Completed [facility] Influenza Virus Vaccine 2021-06-11 00:00:00 Completed [facility] Influenza Virus Vaccine 2021-06-11 00:00:00 Completed [facility] Influenza Virus Vaccine 2021-06-11 00:00:00 Completed [facility] Influenza Virus Vaccine 2021-06-11 00:00:00 Completed [facility] Influenza Virus Vaccine 2021-06-11 00:00:00 Completed [facility] Influenza Virus Vaccine 2021-06-11 00:00:00 Completed [facility] Influenza Virus Vaccine 2021-06-11 00:00:00 Completed [facility] Influenza Virus Vaccine 2021-06-11 00:00:00 Completed [facility] Influenza Virus Vaccine 2021-06-11 00:00:00 Completed [facility] Influenza Virus Vaccine 2021-06-11 00:00:00 Completed [facility] Influenza Virus Vaccine 2021-06-11 00:00:00 Completed [facility] Influenza Virus Vaccine 2021-06-11 00:00:00 Completed [facility] Influenza Virus Vaccine 2021-06-11 00:00:00 Completed [facility] Influenza Virus Vaccine 2021-06-11 00:00:00 Completed [facility] Influenza Virus Vaccine 2021-06-11 00:00:00 Completed [facility] Influenza Virus Vaccine 2021-06-11 00:00:00 Completed [facility] Influenza Virus Vaccine 2021-06-11 00:00:00 Completed [facility] Influenza Virus Vaccine 2021-06-11 00:00:00 Completed [facility] Influenza Virus Vaccine 2021-06-11 00:00:00 Completed [facility] Influenza Virus Vaccine 2021-06-11 00:00:00 Completed [facility] Influenza Virus Vaccine 2021-06-11 00:00:00 Completed [facility] Influenza Virus Vaccine 2021-06-11 00:00:00 Completed [facility] Influenza Virus Vaccine 2021-06-11 00:00:00 Completed [facility] Influenza Virus Vaccine 2021-06-11 00:00:00 Completed [facility] Influenza Virus Vaccine 2021-06-11 00:00:00 Completed [facility] Influenza Virus Vaccine 2021-06-11 00:00:00 Completed [facility] Influenza Virus Vaccine 2021-06-11 00:00:00 Completed [facility] Influenza Virus Vaccine 2021-06-11 00:00:00 Completed [facility] Influenza Virus Vaccine 2021-06-11 00:00:00 Completed [facility] Influenza Virus Vaccine 2021-06-11 00:00:00 Completed [facility] Influenza Virus Vaccine 2021-06-11 00:00:00 Completed [facility] Influenza Virus Vaccine 2021-06-11 00:00:00 Completed [facility] Influenza Virus Vaccine Quad .5 mL IM 6+ MO 2021-06-11 00:00:00 Completed [facility] Influenza Virus Vaccine 2021-06-11 00:00:00 Completed [facility] Influenza Virus Vaccine Quad .5 mL IM 6+ MO 2021-06-11 00:00:00 Completed [facility] Influenza Virus Vaccine 2021-06-11 00:00:00 Completed [facility] Influenza Virus Vaccine Quad .5 mL IM 6+ MO 2021-06-11 00:00:00 Completed [facility] Influenza Virus Vaccine 2021-06-11 00:00:00 Completed [facility] Influenza Virus Vaccine Quad .5 mL IM 6+ MO 2021-06-11 00:00:00 Completed [facility] Influenza Virus Vaccine 2021-06-11 00:00:00 Completed [facility] Influenza Virus Vaccine Quad .5 mL IM 6+ MO 2021-06-11 00:00:00 Completed [facility] Influenza Virus Vaccine 2021-06-11 00:00:00 Completed [facility] Influenza Virus Vaccine Quad .5 mL IM 6+ MO 2021-06-11 00:00:00 Completed [facility] Influenza Virus Vaccine 2021-06-11 00:00:00 Completed [facility] Influenza Virus Vaccine Quad .5 mL IM 6+ MO 2021-06-11 00:00:00 Completed [facility] Influenza Virus Vaccine 2021-06-11 00:00:00 Completed [facility] Influenza Virus Vaccine Quad .5 mL IM 6+ MO 2021-06-11 00:00:00 Completed [facility] Influenza Virus Vaccine 2021-06-11 00:00:00 Completed [facility] Influenza Virus Vaccine Quad .5 mL IM 6+ MO 2021-06-11 00:00:00 Completed [facility] Influenza Virus Vaccine 2021-06-11 00:00:00 Completed [facility] Influenza Virus Vaccine Quad .5 mL IM 6+ MO 2021-06-11 00:00:00 Completed [facility] Influenza Virus Vaccine 2021-06-11 00:00:00 Completed [facility] Influenza Virus Vaccine Quad .5 mL IM 6+ MO 2021-06-11 00:00:00 Completed [facility] Influenza Virus Vaccine 2021-06-11 00:00:00 Completed [facility] Influenza Virus Vaccine Quad .5 mL IM 6+ MO 2021-06-11 00:00:00 Completed [facility] Influenza Virus Vaccine 2021-06-11 00:00:00 Completed [facility] Influenza Virus Vaccine Quad .5 mL IM 6+ MO (FLUZONE/FLULAVAL/F LUARIX) 2021-06-11 00:00:00 Completed [facility] Influenza Virus Vaccine 2021-06-11 00:00:00 Completed [facility] Influenza Virus Vaccine Quad .5 mL IM 6+ MO (FLUZONE/FLULAVAL/F LUARIX) 2021-06-11 00:00:00 Completed [facility] Influenza Virus Vaccine 2021-06-11 00:00:00 Completed [facility] Influenza Virus Vaccine Quad .5 mL IM 6+ MO (FLUZONE/FLULAVAL/F LUARIX) 2021-06-11 00:00:00 Completed [facility] Influenza Virus Vaccine 2020-05-19 00:00:00 Completed [facility] Influenza Virus Vaccine 2020-05-19 00:00:00 Completed [facility] Influenza Virus Vaccine 2020-05-19 00:00:00 Completed [facility] Influenza Virus Vaccine 2020-05-19 00:00:00 Completed [facility] Influenza Virus Vaccine 2020-05-19 00:00:00 Completed [facility] Influenza Virus Vaccine 2020-05-19 00:00:00 Completed [facility] Influenza Virus Vaccine 2020-05-19 00:00:00 Completed [facility] Influenza Virus Vaccine 2020-05-19 00:00:00 Completed [facility] Influenza Virus Vaccine 2020-05-19 00:00:00 Completed [facility] Influenza Virus Vaccine 2020-05-19 00:00:00 Completed [facility] Influenza Virus Vaccine 2020-05-19 00:00:00 Completed [facility] Influenza Virus Vaccine 2020-05-19 00:00:00 Completed [facility] Influenza Virus Vaccine 2020-05-19 00:00:00 Completed [facility] Influenza Virus Vaccine 2020-05-19 00:00:00 Completed [facility] Influenza Virus Vaccine 2020-05-19 00:00:00 Completed [facility] Influenza Virus Vaccine 2020-05-19 00:00:00 Completed [facility] Influenza Virus Vaccine 2020-05-19 00:00:00 Completed [facility] Influenza Virus Vaccine 2020-05-19 00:00:00 Completed [facility] Influenza Virus Vaccine 2020-05-19 00:00:00 Completed [facility] Influenza Virus Vaccine 2020-05-19 00:00:00 Completed [facility] Influenza Virus Vaccine 2020-05-19 00:00:00 Completed [facility] Influenza Virus Vaccine 2020-05-19 00:00:00 Completed [facility] Influenza Virus Vaccine 2020-05-19 00:00:00 Completed [facility] Influenza Virus Vaccine 2020-05-19 00:00:00 Completed [facility] Influenza Virus Vaccine 2020-05-19 00:00:00 Completed [facility] Influenza Virus Vaccine 2020-05-19 00:00:00 Completed [facility] Influenza Virus Vaccine 2020-05-19 00:00:00 Completed [facility] Influenza Virus Vaccine 2020-05-19 00:00:00 Completed [facility] Influenza Virus Vaccine 2020-05-19 00:00:00 Completed [facility] Influenza Virus Vaccine 2020-05-19 00:00:00 Completed [facility] Influenza Virus Vaccine 2020-05-19 00:00:00 Completed [facility] Influenza Virus Vaccine 2020-05-19 00:00:00 Completed [facility] Influenza Virus Vaccine 2020-05-19 00:00:00 Completed [facility] Influenza Virus Vaccine 2020-05-19 00:00:00 Completed [facility] Influenza Virus Vaccine 2020-05-19 00:00:00 Completed [facility] Influenza Virus Vaccine 2020-05-19 [facility] [place] [facility] Vacc[facility] 2020-05-19 00:00:00 Completed [facility] [place] Influenza Virus Vaccine 2020-05-19 00:00:00 Completed [facility] [place] Influenza Virus Vaccine 2020-05-19 00:00:00 Completed [facility] [place] Influenza Virus Vaccine 2020-05-19 00:00:00 Completed [facility] [place] Influenza Virus Vaccine 2020-05-19 00:00:00 Completed [facility] [place] Influenza Virus Vaccine 2020-05-19 00:00:00 Completed [facility] [place] Influenza Virus Vaccine 2020-05-19 00:00:00 Completed [facility] [place] Influenza Virus Vaccine 2020-05-19 00:00:00 Completed [facility] [place] Influenza Virus Vaccine 2020-05-19 00:00:00 Completed [facility] [place] Influenza Virus Vaccine 2020-05-19 00:00:00 Completed [facility] [place] Influenza Virus Vaccine 2020-05-19 00:00:00 Completed [facility] [place] Influenza Virus Vaccine 2020-05-19 00:00:00 Completed [facility] [place] Influenza Virus Vaccine 2020-05-19 00:00:00 Completed [facility] [place] Influenza Virus Vaccine 2020-05-19 00:00:00 Completed [facility] [place] Influenza Virus Vaccine 2020-05-19 00:00:00 Completed [facility] [place] Influenza Virus Vaccine 2020-05-19 00:00:00 Completed [facility] [place] Influenza Virus Vaccine 2020-05-19 00:00:00 Completed [facility] [place] Influenza Virus Vaccine 2020-05-19 00:00:00 Completed [facility] [place] Influenza Virus Vaccine 2020-05-19 00:00:00 Completed [facility] [place] Influenza Virus Vaccine Recomb Quad IM, Preserv and ABX Free 18-64 YRS 2020-05-16 00:00:00 Completed [facility] [place] Influenza Virus Vaccine Recomb Quad IM, Preserv and ABX Free 18-64 YRS 2020-05-16 00:00:00 Completed [facility] [place] Influenza Virus Vaccine Recomb Quad IM, Preserv and ABX Free 18-64 YRS 2020-05-16 00:00:00 Completed [facility] [place] Influenza Virus Vaccine Recomb Quad IM, Preserv and ABX Free 18-64 YRS 2020-05-16 00:00:00 Completed [facility] [place] Influenza Virus Vaccine Recomb Quad IM, Preserv and ABX Free 18-64 YRS 2020-05-16 00:00:00 Completed [facility] [place] Influenza Virus Vaccine Recomb Quad IM, Preserv and ABX Free 18-64 YRS 2020-05-16 00:00:00 Completed [facility] [place] Influenza Virus Vaccine Recomb Quad IM, Preserv and ABX Free 18-64 YRS 2020-05-16 00:00:00 Completed [facility] [place] Influenza Virus Vaccine Recomb Quad IM, Preserv and ABX Free 18-64 YRS 2020-05-16 00:00:00 Completed [facility] [place] Influenza Virus Vaccine Recomb Quad IM, Preserv and ABX Free 18-64 YRS 2020-05-16 00:00:00 Completed [facility] [place] Influenza Virus Vaccine Recomb Quad IM, Preserv and ABX Free 18-64 YRS 2020-05-16 00:00:00 Completed [facility] [place] Influenza Virus Vaccine Recomb Quad IM, Preserv and ABX Free 18-64 YRS 2020-05-16 00:00:00 Completed [facility] [place] Influenza Virus Vaccine Recomb Quad IM, Preserv and ABX Free 18-64 YRS 2020-05-16 00:00:00 Completed [facility] [place] Influenza Virus Vaccine Recomb Quad IM, Preserv and ABX Free 18-64 YRS 2020-05-16 00:00:00 Completed [facility] [place] Influenza Virus Vaccine Recomb Quad IM, Preserv and ABX Free 18-64 YRS 2020-05-16 00:00:00 Completed [facility] [place] Influenza Virus Vaccine Recomb Quad IM, Preserv and ABX Free 18-64 YRS 2020-05-16 00:00:00 Completed [facility] [place] Influenza Virus Vaccine Recomb Quad IM, Preserv and ABX Free 18-64 YRS 2020-05-16 00:00:00 Completed [facility] [place] Influenza Virus Vaccine Recomb Quad IM, Preserv and ABX Free 18-64 YRS 2020-05-16 00:00:00 Completed [facility] [place] Influenza Virus Vaccine Recomb Quad IM, Preserv and ABX Free 18-64 YRS 2020-05-16 00:00:00 Completed [facility] [place] Influenza Virus Vaccine Recomb Quad IM, Preserv and ABX Free 18-64 YRS 2020-05-16 00:00:00 Completed [facility] [place] Influenza Virus Vaccine Recomb Quad IM, Preserv and ABX Free 18-64 YRS 2020-05-16 00:00:00 Completed [facility] [place] Influenza Virus Vaccine Recomb Quad IM, Preserv and ABX Free 18-64 YRS 2020-05-16 00:00:00 Completed [facility] [place] Influenza Virus Vaccine Recomb Quad IM, Preserv and ABX Free 18-64 YRS 2020-05-16 00:00:00 Completed [facility] [place] Influenza Virus Vaccine Recomb Quad IM, Preserv and ABX Free 18-64 YRS 2020-05-16 00:00:00 Completed [facility] [place] Influenza Virus Vaccine Recomb Quad IM, Preserv and ABX Free 18-64 YRS 2020-05-16 00:00:00 Completed [facility] [place] Influenza Virus Vaccine Recomb Quad IM, Preserv and ABX Free 18-64 YRS 2020-05-16 00:00:00 Completed [facility] [place] Influenza Virus Vaccine Recomb Quad IM, Preserv and ABX Free 18-64 YRS 2020-05-16 00:00:00 Completed [facility] [place] Influenza Virus Vaccine Recomb Quad IM, Preserv and ABX Free 18-64 YRS 2020-05-16 00:00:00 Completed [facility] [place] Influenza Virus Vaccine Recomb Quad IM, Preserv and ABX Free 18-64 YRS 2020-05-16 00:00:00 Completed [facility] [place] Influenza Virus Vaccine Recomb Quad IM, Preserv and ABX Free 18-64 YRS 2020-05-16 00:00:00 Completed [facility] [place] Influenza Virus Vaccine Recomb Quad IM, Preserv and ABX Free 18-64 YRS 2020-05-16 00:00:00 Completed [facility] [place] Influenza Virus Vaccine Recomb Quad IM, Preserv and ABX Free 18-64 YRS 2020-05-16 00:00:00 Completed [facility] [place] Influenza Virus Vaccine Recomb Quad IM, Preserv and ABX Free 18-64 YRS 2020-05-16 00:00:00 Completed [facility] [place] Influenza Virus Vaccine Recomb Quad IM, Preserv and ABX Free 18-64 YRS 2020-05-16 00:00:00 Completed [facility] [place] Influenza Virus Vaccine Recomb Quad IM, Preserv and ABX Free 18-64 YRS 2020-05-16 00:00:00 Completed [facility] [place] Influenza Virus Vaccine Recomb Quad IM, Preserv and ABX Free 18-64 YRS 2020-05-16 00:00:00 Completed [facility] [place] Influenza Virus Vaccine Recomb Quad IM, Preserv and ABX Free 18-64 YRS 2020-05-16 00:00:00 Completed [facility] [place] Influenza Virus Vaccine Recomb Quad IM, Preserv and ABX Free 18-64 YRS 2020-05-16 00:00:00 Completed [facility] [place] Influenza Virus Vaccine Recomb Quad IM, Preserv and ABX Free 18-64 YRS 2020-05-16 00:00:00 Completed [facility] [place] Influenza Virus Vaccine Recomb Quad IM, Preserv and ABX Free 18-64 YRS 2020-05-16 00:00:00 Completed [facility] [place] Influenza Virus Vaccine Recomb Quad IM, Preserv and ABX Free 18-64 YRS 2020-05-16 00:00:00 Completed [facility] [place] Influenza Virus Vaccine Recomb Quad IM, Preserv and ABX Free 18-64 YRS 2020-05-16 00:00:00 Completed [facility] [place] Influenza Virus Vaccine Recomb Quad IM, Preserv and ABX Free 18-64 YRS 2020-05-16 00:00:00 Completed [facility] [place] Influenza Virus Vaccine Recomb Quad IM, Preserv and ABX Free 18-64 YRS 2020-05-16 00:00:00 Completed [facility] [place] Influenza Virus Vaccine Recomb Quad IM, Preserv and ABX Free 18-64 YRS 2020-05-16 00:00:00 Completed [facility] [place] Influenza Virus Vaccine Recomb Quad IM, Preserv and ABX Free 18-64 YRS 2020-05-16 00:00:00 Completed [facility] [place] Influenza Virus Vaccine Recomb Quad IM, Preserv and ABX Free 18-64 YRS 2020-05-16 00:00:00 Completed [facility] [place] Influenza Virus Vaccine Recomb Quad IM, Preserv and ABX Free 18-64 YRS 2020-05-16 00:00:00 Completed [facility] [place] Influenza Virus Vaccine Recomb Quad IM, Preserv and ABX Free 18-64 YRS 2020-05-16 00:00:00 Completed [facility] [place] Influenza Virus Vaccine Recomb Quad IM, Preserv and ABX Free 18-64 YRS 2020-05-16 00:00:00 Completed [facility] [place] Influenza Virus Vaccine Recomb Quad IM, Preserv and ABX Free 18-64 YRS 2020-05-16 00:00:00 Completed [facility] [place] Influenza Virus Vaccine Recomb Quad IM, Preserv and ABX Free 18-64 YRS 2020-05-16 00:00:00 Completed [facility] [place] Influenza Virus Vaccine Recomb Quad IM, Preserv and ABX Free 18-64 YRS 2020-05-16 00:00:00 Completed [facility] [place] Influenza Virus Vaccine Recomb Quad IM, Preserv and ABX Free 18-64 YRS 2020-05-16 00:00:00 Completed [facility] [place] Influenza Virus Vaccine Recomb Quad IM, Preserv and ABX Free 18-64 YRS 2020-05-16 00:00:00 Completed [facility] [place] Influenza Virus Vaccine Recomb Quad IM, Preserv and ABX Free 18-64 YRS 2020-05-16 00:00:00 Completed [facility] [place] TDAP (ADACEL) VACCINE 2019-05-21 00:00:00 Completed [facility] [place] TDAP (ADACEL) VACCINE 2019-05-21 00:00:00 Completed [facility] [place] TDAP (ADACEL) VACCINE 2019-05-21 00:00:00 Completed [facility] [place] TDAP (ADACEL) VACCINE 2019-05-21 00:00:00 Completed [facility] [place] TDAP (ADACEL) VACCINE 2019-05-21 00:00:00 Completed [facility] [place] TDAP (ADACEL) VACCINE 2019-05-21 00:00:00 Completed [facility] [place] TDAP (ADACEL) VACCINE 2019-05-21 00:00:00 Completed [facility] [place] TDAP (ADACEL) VACCINE 2019-05-21 00:00:00 Completed [facility] [place] TDAP (ADACEL) VACCINE 2019-05-21 00:00:00 Completed [facility] [place] TDAP (ADACEL) VACCINE 2019-05-21 00:00:00 Completed [facility] [place] TDAP (ADACEL) VACCINE 2019-05-21 00:00:00 Completed [facility] [place] TDAP (ADACEL) VACCINE 2019-05-21 00:00:00 Completed [facility] [place] TDAP (ADACEL) VACCINE 2019-05-21 00:00:00 Completed [facility] [place] TDAP (ADACEL) VACCINE 2019-05-21 00:00:00 Completed [facility] [place] TDAP (ADACEL) VACCINE 2019-05-21 00:00:00 Completed [facility] [place] TDAP (ADACEL) VACCINE 2019-05-21 00:00:00 Completed [facility] [place] TDAP (ADACEL) VACCINE 2019-05-21 00:00:00 Completed [facility] [place] TDAP (ADACEL) VACCINE 2019-05-21 00:00:00 Completed [facility] [place] TDAP (ADACEL) VACCINE 2019-05-21 00:00:00 Completed [facility] [place] TDAP (ADACEL) VACCINE 2019-05-21 00:00:00 Completed [facility] [place] TDAP (ADACEL) VACCINE 2019-05-21 00:00:00 Completed [facility] [place] TDAP (ADACEL) VACCINE 2019-05-21 00:00:00 Completed [facility] [place] TDAP (ADACEL) VACCINE 2019-05-21 00:00:00 Completed [facility] [place] TDAP (ADACEL) VACCINE 2019-05-21 00:00:00 Completed [facility] [place] TDAP (ADACEL) VACCINE 2019-05-21 00:00:00 Completed [facility] [place] TDAP (ADACEL) VACCINE 2019-05-21 00:00:00 Completed [facility] [place] TDAP (ADACEL) VACCINE 2019-05-21 00:00:00 Completed [facility] [place] TDAP (ADACEL) VACCINE 2019-05-21 00:00:00 Completed [facility] [place] TDAP (ADACEL) VACCINE 2019-05-21 00:00:00 Completed [facility] [place] TDAP (ADACEL) VACCINE 2019-05-21 00:00:00 Completed [facility] [place] TDAP (ADACEL) VACCINE 2019-05-21 00:00:00 Completed [facility] [place] TDAP (ADACEL) VACCINE 2019-05-21 00:00:00 Completed [facility] [place] TDAP (ADACEL) VACCINE 2019-05-21 00:00:00 Completed [facility] [place] TDAP (ADACEL) VACCINE 2019-05-21 00:00:00 Completed [facility] [place] TDAP (ADACEL) VACCINE 2019-05-21 00:00:00 Completed [facility] [place] TDAP (ADACEL) VACCINE 2019-05-21 00:00:00 Completed [facility] [place] TDAP (ADACEL) VACCINE 2019-05-21 00:00:00 Completed [facility] [place] TDAP (ADACEL) VACCINE 2019-05-21 00:00:00 Completed [facility] [place] TDAP (ADACEL) VACCINE 2019-05-21 00:00:00 Completed [facility] [place] TDAP (ADACEL) VACCINE 2019-05-21 00:00:00 Completed [facility] [place] TDAP (ADACEL) VACCINE 2019-05-21 00:00:00 Completed [facility] [place] TDAP (ADACEL) VACCINE 2019-05-21 00:00:00 Completed [facility] [place] TDAP (ADACEL) VACCINE 2019-05-21 00:00:00 Completed [facility] [place] TDAP (ADACEL) VACCINE 2019-05-21 00:00:00 Completed [facility] [place] TDAP (ADACEL) VACCINE 2019-05-21 00:00:00 Completed [facility] [place] TDAP (ADACEL) VACCINE 2019-05-21 00:00:00 Completed [facility] [place] TDAP (ADACEL) VACCINE 2019-05-21 00:00:00 Completed [facility] [place] TDAP (ADACEL) VACCINE 2019-05-21 00:00:00 Completed [facility] [place] TDAP (ADACEL) VACCINE 2019-05-21 00:00:00 Completed [facility] [place] TDAP (ADACEL) VACCINE 2019-05-21 00:00:00 Completed [facility] [place] TDAP (ADACEL) VACCINE 2019-05-21 00:00:00 Completed [facility] [place] TDAP (ADACEL) VACCINE 2019-05-21 00:00:00 Completed [facility] [place] TDAP (ADACEL) VACCINE 2019-05-21 00:00:00 Completed [facility] [place] TDAP (ADACEL) VACCINE 2019-05-21 00:00:00 Completed [facility] [place] TDAP (ADACEL) VACCINE 2019-05-21 00:00:00 Completed [facility] [place] Influenza Virus Vaccine Quad .5 mL IM 6+ MO 2019-02-06 00:00:00 Completed [facility] [place] Influenza Virus Vaccine Quad .5 mL IM 6+ MO 2019-02-06 00:00:00 Completed [facility] [place] Influenza Virus Vaccine Quad .5 mL IM 6+ MO 2019-02-06 00:00:00 Completed [facility] [place] Influenza Virus Vaccine Quad .5 mL IM 6+ MO 2019-02-06 00:00:00 Completed [facility] [place] Influenza Virus Vaccine Quad .5 mL IM 6+ MO 2019-02-06 00:00:00 Completed [facility] [place] Influenza Virus Vaccine Quad .5 mL IM 6+ MO 2019-02-06 00:00:00 Completed [facility] [place] Influenza Virus Vaccine Quad .5 mL IM 6+ MO 2019-02-06 00:00:00 Completed [facility] [place] Influenza Virus Vaccine Quad .5 mL IM 6+ MO 2019-02-06 00:00:00 Completed [facility] [place] Influenza Virus Vaccine Quad .5 mL IM 6+ MO 2019-02-06 00:00:00 Completed [facility] [place] Influenza Virus Vaccine Quad .5 mL IM 6+ MO 2019-02-06 00:00:00 Completed [facility] [place] Influenza Virus Vaccine Quad .5 mL IM 6+ MO 2019-02-06 00:00:00 Completed [facility] [place] Influenza Virus Vaccine Quad .5 mL IM 6+ MO 2019-02-06 00:00:00 Completed [facility] [place] Influenza Virus Vaccine Quad .5 mL IM 6+ MO 2019-02-06 00:00:00 Completed [facility] [place] Influenza Virus Vaccine Quad .5 mL IM 6+ MO 2019-02-06 00:00:00 Completed [facility] [place] Influenza Virus Vaccine Quad .5 mL IM 6+ MO 2019-02-06 00:00:00 Completed [facility] [place] Influenza Virus Vaccine Quad .5 mL IM 6+ MO 2019-02-06 00:00:00 Completed [facility] [place] Influenza Virus Vaccine Quad .5 mL IM 6+ MO 2019-02-06 00:00:00 Completed [facility] [place] Influenza Virus Vaccine Quad .5 mL IM 6+ MO 2019-02-06 00:00:00 Completed [facility] [place] Influenza Virus Vaccine Quad .5 mL IM 6+ MO 2019-02-06 00:00:00 Completed [facility] [place] Influenza Virus Vaccine Quad .5 mL IM 6+ MO 2019-02-06 00:00:00 Completed [facility] [place] Influenza Virus Vaccine Quad .5 mL IM 6+ MO 2019-02-06 00:00:00 Completed [facility] [place] Influenza Virus Vaccine Quad .5 mL IM 6+ MO 2019-02-06 00:00:00 Completed [facility] [place] Influenza Virus Vaccine Quad .5 mL IM 6+ MO 2019-02-06 00:00:00 Completed [facility] [place] Influenza Virus Vaccine Quad .5 mL IM 6+ MO 2019-02-06 00:00:00 Completed [facility] [place] Influenza Virus Vaccine Quad .5 mL IM 6+ MO 2019-02-06 00:00:00 Completed [facility] [place] Influenza Virus Vaccine Quad .5 mL IM 6+ MO 2019-02-06 00:00:00 Completed [facility] [place] Influenza Virus Vaccine Quad .5 mL IM 6+ MO 2019-02-06 00:00:00 Completed [facility] [place] Influenza Virus Vaccine Quad .5 mL IM 6+ MO 2019-02-06 00:00:00 Completed [facility] [place] Influenza Virus Vaccine Quad .5 mL IM 6+ MO 2019-02-06 00:00:00 Completed [facility] [place] Influenza Virus Vaccine Quad .5 mL IM 6+ MO 2019-02-06 00:00:00 Completed [facility] [place] Influenza Virus Vaccine Quad .5 mL IM 6+ MO 2019-02-06 00:00:00 Completed [facility] [place] Influenza Virus Vaccine Quad .5 mL IM 6+ MO 2019-02-06 00:00:00 Completed [facility] [place] Influenza Virus Vaccine Quad .5 mL IM 6+ MO 2019-02-06 00:00:00 Completed [facility] [place] Influenza Virus Vaccine Quad .5 mL IM 6+ MO 2019-02-06 00:00:00 Completed [facility] [place] Influenza Virus Vaccine Quad .5 mL IM 6+ MO 2019-02-06 00:00:00 Completed [facility] [place] Influenza Virus Vaccine Quad .5 mL IM 6+ MO 2019-02-06 00:00:00 Completed [facility] [place] Influenza Virus Vaccine Quad .5 mL IM 6+ MO 2019-02-06 00:00:00 Completed [facility] [place] Influenza Virus Vaccine Quad .5 mL IM 6+ MO 2019-02-06 00:00:00 Completed [facility] [place] Influenza Virus Vaccine Quad .5 mL IM 6+ MO 2019-02-06 00:00:00 Completed [facility] [place] Influenza Virus Vaccine Quad .5 mL IM 6+ MO 2019-02-06 00:00:00 Completed [facility] [place] Influenza Virus Vaccine Quad .5 mL IM 6+ MO 2019-02-06 00:00:00 Completed [facility] [place] Influenza Virus Vaccine Quad .5 mL IM 6+ MO 2019-02-06 00:00:00 Completed [facility] [place] Influenza Virus Vaccine Quad .5 mL IM 6+ MO 2019-02-06 00:00:00 Completed [facility] [place] Influenza Virus Vaccine Quad .5 mL IM 6+ MO 2019-02-06 00:00:00 Completed [facility] [place] Influenza Virus Vaccine Quad .5 mL IM 6+ MO 2019-02-06 00:00:00 Completed [facility] [place] Influenza Virus Vaccine Quad .5 mL IM 6+ MO 2019-02-06 00:00:00 Completed [facility] [place] Influenza Virus Vaccine Quad .5 mL IM 6+ MO 2019-02-06 00:00:00 Completed [facility] [place] Influenza Virus Vaccine Quad .5 mL IM 6+ MO 2019-02-06 00:00:00 Completed [facility] [place] Influenza Virus Vaccine Quad .5 mL IM 6+ MO 2019-02-06 00:00:00 Completed [facility] [place] Influenza Virus Vaccine Quad .5 mL IM 6+ MO 2019-02-06 00:00:00 Completed [facility] [place] Influenza Virus Vaccine Quad .5 mL IM 6+ MO 2019-02-06 00:00:00 Completed [facility] [place] Influenza Virus Vaccine Quad .5 mL IM 6+ MO 2019-02-06 00:00:00 Completed [facility] [place] Influenza Virus Vaccine Quad .5 mL IM 6+ MO (FLUZONE/FLULAVAL/F LUARIX) 2019-02-06 00:00:00 Completed [facility] [place] Influenza Virus Vaccine Quad .5 mL IM 6+ MO (FLUZONE/FLULAVAL/F LUARIX) 2019-02-06 00:00:00 Completed [facility] [place] Influenza Virus Vaccine Quad .5 mL IM 6+ MO (FLUZONE/FLULAVAL/F LUARIX) 2019-02-06 00:00:00 Completed [facility] [place] Influenza Virus Vaccine Quad .5 mL IM 6+ MO (FLUZONE/FLULAVAL/F LUARIX) Unknown Completed [facility] [place] TDAP (ADACEL) VACCINE Unknown Completed [facility] [place] Influenza Virus Vaccine Recomb Quad IM, Preserv and ABX Free 18-64 YRS Unknown Completed [facility] [place] Influenza Virus Vaccine Unknown Completed [facility] [place] Influenza Virus Vaccine Quad IM, Preserv and ABX Free 6 MO-64 YRS (FLUCELVAX) Unknown Completed [facility] [place] Influenza Virus Vaccine Quad .5 mL IM 6+ MO (FLUZONE/FLULAVAL/F LUARIX) Unknown Completed [facility] [place] TDAP (ADACEL) VACCINE Unknown Completed [facility] [place] Influenza Virus Vaccine Recomb Quad IM, Preserv and ABX Free 18-64 YRS Unknown Completed [facility] [place] Influenza Virus Vaccine Unknown Completed [facility] [place] Influenza Virus Vaccine Quad IM, Preserv and ABX Free 6 MO-64 YRS (FLUCELVAX) Unknown Completed [facility] [place] Influenza Virus Vaccine Quad .5 mL IM 6+ MO (FLUZONE/FLULAVAL/F LUARIX) Unknown Completed [facility] [place] TDAP (ADACEL) VACCINE Unknown Completed [facility] [place] Influenza Virus Vaccine Recomb Quad IM, Preserv and ABX Free 18-64 YRS Unknown Completed [facility] [place] Influenza Virus Vaccine Unknown Completed [facility] [place] Influenza Virus Vaccine Quad .5 mL IM 6+ MO (FLUZONE/FLULAVAL/F LUARIX) Unknown Completed [facility] [place] TDAP (ADACEL) VACCINE Unknown Completed [facility] [place] Influenza Virus Vaccine Recomb Quad IM, Preserv and ABX Free 18-64 YRS Unknown Completed [facility] [place] Influenza Virus Vaccine Unknown Completed [facility] [place] Influenza Virus Vaccine Quad .5 mL IM 6+ MO (FLUZONE/FLULAVAL/F LUARIX) Unknown Completed [facility] [place] TDAP (ADACEL) VACCINE Unknown Completed [facility] [place] Influenza Virus Vaccine Recomb Quad IM, Preserv and ABX Free 18-64 YRS Unknown Completed [facility] [place] Influenza Virus Vaccine Unknown Completed [facility] [place] Influenza Virus Vaccine Quad .5 mL IM 6+ MO (FLUZONE/FLULAVAL/F LUARIX) Unknown Completed [facility] [place] TDAP (ADACEL) VACCINE Unknown Completed [facility] [place] Influenza Virus Vaccine Recomb Quad IM, Preserv and ABX Free 18-64 YRS Unknown Completed [facility] [place] Influenza Virus Vaccine Unknown Completed [facility] [place] Influenza Virus Vaccine Quad .5 mL IM 6+ MO (FLUZONE/FLULAVAL/F LUARIX) Unknown Completed [facility] [place] TDAP (ADACEL) VACCINE Unknown Completed [facility] [place] Influenza Virus Vaccine Recomb Quad IM, Preserv and ABX Free 18-64 YRS Unknown Completed [facility] [place] Influenza Virus Vaccine Unknown Completed [facility] [place] Influenza Virus Vaccine Quad .5 mL IM 6+ MO (FLUZONE/FLULAVAL/F LUARIX) Unknown Completed [facility] [place] TDAP (ADACEL) VACCINE Unknown Completed [facility] [place] Influenza Virus Vaccine Recomb Quad IM, Preserv and ABX Free 18-64 YRS Unknown Completed [facility] [place] Influenza Virus Vaccine Unknown Completed [facility] [place] Influenza Virus Vaccine Quad .5 mL IM 6+ MO (FLUZONE/FLULAVAL/F LUARIX) Unknown Completed [facility] [place] TDAP (ADACEL) VACCINE Unknown Completed [facility] [place] Influenza Virus Vaccine Recomb Quad IM, Preserv and ABX Free 18-64 YRS Unknown Completed [facility] [place] Influenza Virus Vaccine Unknown Completed [facility] [place] Influenza Virus Vaccine Quad .5 mL IM 6+ MO (FLUZONE/FLULAVAL/F LUARIX) Unknown Completed [facility] [place] TDAP (ADACEL) VACCINE Unknown Completed [facility] [place] Influenza Virus Vaccine Recomb Quad IM, Preserv and ABX Free 18-64 YRS Unknown Completed [facility] [place] Influenza Virus Vaccine Unknown Completed [facility] [place] Influenza Virus Vaccine Quad .5 mL IM 6+ MO (FLUZONE/FLULAVAL/F LUARIX) Unknown Completed [facility] [place] TDAP (ADACEL) VACCINE Unknown Completed [facility] [place] Influenza Virus Vaccine Recomb Quad IM, Preserv and ABX Free 18-64 YRS Unknown Completed [facility] [place] Influenza Virus Vaccine Unknown Completed [facility] Influenza Virus Vaccine Quad .5 mL IM 6+ MO (FLUZONE/FLULAVAL/F LUARIX) Unknown Completed [facility] [place] TDAP (ADACEL) VACCINE Unknown Completed [facility] Influenza Virus Vaccine Recomb Quad IM, Preserv and ABX Free 18-64 YRS Unknown Completed [facility] [place] Influenza Virus Vaccine Unknown Completed [facility] [place] Influenza Virus Vaccine Quad .5 mL IM 6+ MO (FLUZONE/FLULAVAL/F LUARIX) Unknown Completed [facility] [place] TDAP (ADACEL) VACCINE Unknown Completed [facility] Influenza Virus Vaccine Recomb Quad IM, Preserv and ABX Free 18-64 YRS Unknown Completed [facility] [place] Influenza Virus Vaccine Unknown Completed [facility] [place] Influenza Virus Vaccine Quad .5 mL IM 6+ MO (FLUZONE/FLULAVAL/F LUARIX) Unknown Completed [facility] [place] TDAP (ADACEL) VACCINE Unknown Completed [facility] Influenza Virus Vaccine Recomb Quad IM, Preserv and ABX Free 18-64 YRS Unknown Completed [facility] Influenza Virus Vaccine Unknown Completed [facility] Influenza Virus Vaccine Quad .5 mL IM 6+ MO (FLUZONE/FLULAVAL/F LUARIX) Unknown Completed [facility] TDAP (ADACEL) VACCINE Unknown Completed [facility] Influenza Virus Vaccine Recomb Quad IM, Preserv and ABX Free 18-64 YRS Unknown Completed [facility] Influenza Virus Vaccine Unknown Completed [facility] Influenza Virus Vaccine Quad .5 mL IM 6+ MO (FLUZONE/FLULAVAL/F LUARIX) Unknown Completed [facility] TDAP (ADACEL) VACCINE Unknown Completed [facility] Influenza Virus Vaccine Recomb Quad IM, Preserv and ABX Free 18-64 YRS Unknown Completed [facility] Influenza Virus Vaccine Unknown Completed [facility] Influenza Virus Vaccine Quad .5 mL IM 6+ MO (FLUZONE/FLULAVAL/F LUARIX) Unknown Completed [facility] TDAP (ADACEL) VACCINE Unknown Completed [facility] Influenza Virus Vaccine Recomb Quad IM, Preserv and ABX Free 18-64 YRS Unknown Completed [facility] Influenza Virus Vaccine Unknown Completed [facility] Influenza Virus Vaccine Quad .5 mL IM 6+ MO (FLUZONE/FLULAVAL/F LUARIX) Unknown Completed [facility] TDAP (ADACEL) VACCINE Unknown Completed [facility] Influenza Virus Vaccine Recomb Quad IM, Preserv and ABX Free 18-64 YRS Unknown Completed [facility] Influenza Virus Vaccine Unknown Completed [facility] Influenza Virus Vaccine Quad .5 mL IM 6+ MO (FLUZONE/FLULAVAL/F LUARIX) Unknown Completed [facility] TDAP (ADACEL) VACCINE Unknown Completed [facility] Influenza Virus Vaccine Recomb Quad IM, Preserv and ABX Free 18-64 YRS Unknown Completed [facility] Influenza Virus Vaccine Unknown Completed [facility] Influenza Virus Vaccine Quad .5 mL IM 6+ MO (FLUZONE/FLULAVAL/F LUARIX) Unknown Completed [facility] TDAP (ADACEL) VACCINE Unknown Completed [facility] Influenza Virus Vaccine Recomb Quad IM, Preserv and ABX Free 18-64 YRS Unknown Completed [facility] Influenza Virus Vaccine Unknown Completed [facility] Influenza Virus Vaccine Quad .5 mL IM 6+ MO (FLUZONE/FLULAVAL/F LUARIX) Unknown Completed [facility] TDAP (ADACEL) VACCINE Unknown Completed [facility] Influenza Virus Vaccine Recomb Quad IM, Preserv and ABX Free 18-64 YRS Unknown Completed [facility] Influenza Virus Vaccine Unknown Completed [facility] Influenza Virus Vaccine Quad .5 mL IM 6+ MO (FLUZONE/FLULAVAL/F LUARIX) Unknown Completed [facility] TDAP (ADACEL) VACCINE Unknown Completed [facility] Influenza Virus Vaccine Recomb Quad IM, Preserv and ABX Free 18-64 YRS Unknown Completed [facility] Influenza Virus Vaccine Unknown Completed [facility] Influenza Virus Vaccine Quad .5 mL IM 6+ MO (FLUZONE/FLULAVAL/F LUARIX) Unknown Completed [facility] TDAP (ADACEL) VACCINE Unknown Completed [facility] Influenza Virus Vaccine Recomb Quad IM, Preserv and ABX Free 18-64 YRS Unknown Completed [facility] Influenza Virus Vaccine Unknown Completed [facility] Influenza Virus Vaccine Quad .5 mL IM 6+ MO (FLUZONE/FLULAVAL/F LUARIX) Unknown Completed [facility] TDAP (ADACEL) VACCINE Unknown Completed [facility] Influenza Virus Vaccine Recomb Quad IM, Preserv and ABX Free 18-64 YRS Unknown Completed [facility] Influenza Virus Vaccine Unknown Completed [facility] Influenza Virus Vaccine Quad .5 mL IM 6+ MO (FLUZONE/FLULAVAL/F LUARIX) Unknown Completed [facility] TDAP (ADACEL) VACCINE Unknown Completed [facility] Influenza Virus Vaccine Recomb Quad IM, Preserv and ABX Free 18-64 YRS Unknown Completed [facility] Influenza Virus Vaccine Unknown Completed [facility] Influenza Virus Vaccine Quad .5 mL IM 6+ MO (FLUZONE/FLULAVAL/F LUARIX) Unknown Completed [facility] TDAP (ADACEL) VACCINE Unknown Completed [facility] Influenza Virus Vaccine Recomb Quad IM, Preserv and ABX Free 18-64 YRS Unknown Completed [facility] Influenza Virus Vaccine Unknown Completed [facility] Influenza Virus Vaccine Quad .5 mL IM 6+ MO (FLUZONE/FLULAVAL/F LUARIX) Unknown Completed [facility] TDAP (ADACEL) VACCINE Unknown Completed [facility] Influenza Virus Vaccine Recomb Quad IM, Preserv and ABX Free 18-64 YRS Unknown Completed [facility] Influenza Virus Vaccine Unknown Completed [facility] Influenza Virus Vaccine Quad .5 mL IM 6+ MO (FLUZONE/FLULAVAL/F LUARIX) Unknown Completed [facility] TDAP (ADACEL) VACCINE Unknown Completed [facility] Influenza Virus Vaccine Recomb Quad IM, Preserv and ABX Free 18-64 YRS Unknown Completed [facility] Influenza Virus Vaccine Unknown Completed [facility] Influenza Virus Vaccine Quad .5 mL IM 6+ MO (FLUZONE/FLULAVAL/F LUARIX) Unknown Completed [facility] TDAP (ADACEL) VACCINE Unknown Completed [facility] Influenza Virus Vaccine Recomb Quad IM, Preserv and ABX Free 18-64 YRS Unknown Completed [facility] Influenza Virus Vaccine Unknown Completed [facility] Influenza Virus Vaccine Quad .5 mL IM 6+ MO (FLUZONE/FLULAVAL/F LUARIX) Unknown Completed [facility] TDAP (ADACEL) VACCINE Unknown Completed [facility] Influenza Virus Vaccine Recomb Quad IM, Preserv and ABX Free 18-64 YRS Unknown Completed [facility] Influenza Virus Vaccine Unknown Completed [facility] Influenza Virus Vaccine Quad .5 mL IM 6+ MO (FLUZONE/FLULAVAL/F LUARIX) Unknown Completed [facility] TDAP (ADACEL) VACCINE Unknown Completed [facility] Influenza Virus Vaccine Recomb Quad IM, Preserv and ABX Free 18-64 YRS Unknown Completed [facility] Influenza Virus Vaccine Unknown Completed [facility] Influenza Virus Vaccine Quad .5 mL IM 6+ MO (FLUZONE/FLULAVAL/F LUARIX) Unknown Completed [facility] TDAP (ADACEL) VACCINE Unknown Completed [facility] Influenza Virus Vaccine Recomb Quad IM, Preserv and ABX Free 18-64 YRS Unknown Completed [facility] Influenza Virus Vaccine Unknown Completed [facility] Influenza Virus Vaccine Quad .5 mL IM 6+ MO (FLUZONE/FLULAVAL/F LUARIX) Unknown Completed [facility] TDAP (ADACEL) VACCINE Unknown Completed [facility] Influenza Virus Vaccine Recomb Quad IM, Preserv and ABX Free 18-64 YRS Unknown Completed [facility] Influenza Virus Vaccine Unknown Completed [facility] Influenza Virus Vaccine Quad .5 mL IM 6+ MO (FLUZONE/FLULAVAL/F LUARIX) Unknown Completed [facility] TDAP (ADACEL) VACCINE Unknown Completed [facility] Influenza Virus Vaccine Recomb Quad IM, Preserv and ABX Free 18-64 YRS Unknown Completed [facility] Influenza Virus Vaccine Unknown Completed [facility] Influenza Virus Vaccine Quad .5 mL IM 6+ MO (FLUZONE/FLULAVAL/F LUARIX) Unknown Completed [facility] TDAP (ADACEL) VACCINE Unknown Completed [facility] Influenza Virus Vaccine Recomb Quad IM, Preserv and ABX Free 18-64 YRS Unknown Completed [facility] Influenza Virus Vaccine Unknown Completed [facility] Influenza Virus Vaccine Quad .5 mL IM 6+ MO (FLUZONE/FLULAVAL/F LUARIX) Unknown Completed [facility] TDAP (ADACEL) VACCINE Unknown Completed [facility] Influenza Virus Vaccine Recomb Quad IM, Preserv and ABX Free 18-64 YRS Unknown Completed [facility] Influenza Virus Vaccine Unknown Completed [facility] Influenza Virus Vaccine Quad .5 mL IM 6+ MO (FLUZONE/FLULAVAL/F LUARIX) Unknown Completed [facility] TDAP (ADACEL) VACCINE Unknown Completed [facility] Influenza Virus Vaccine Recomb Quad IM, Preserv and ABX Free 18-64 YRS Unknown Completed [facility] Influenza Virus Vaccine Unknown Completed [facility] Influenza Virus Vaccine Quad .5 mL IM 6+ MO (FLUZONE/FLULAVAL/F LUARIX) Unknown Completed [facility] TDAP (ADACEL) VACCINE Unknown Completed [facility] Influenza Virus Vaccine Recomb Quad IM, Preserv and ABX Free 18-64 YRS Unknown Completed [facility] Influenza Virus Vaccine Unknown Completed [facility] Influenza Virus Vaccine Quad .5 mL IM 6+ MO (FLUZONE/FLULAVAL/F LUARIX) Unknown Completed [facility] TDAP (ADACEL) VACCINE Unknown Completed [facility] Influenza Virus Vaccine Recomb Quad IM, Preserv and ABX Free 18-64 YRS Unknown Completed [facility] Influenza Virus Vaccine Unknown Completed [facility] Influenza Virus Vaccine Quad .5 mL IM 6+ MO (FLUZONE/FLULAVAL/F LUARIX) Unknown Completed [facility] TDAP (ADACEL) VACCINE Unknown Completed [facility] Influenza Virus Vaccine Recomb Quad IM, Preserv and ABX Free 18-64 YRS Unknown Completed [facility] Influenza Virus Vaccine Unknown Completed [facility] Influenza Virus Vaccine Quad .5 mL IM 6+ MO (FLUZONE/FLULAVAL/F LUARIX) Unknown Completed [facility] TDAP (ADACEL) VACCINE Unknown Completed [facility] Influenza Virus Vaccine Recomb Quad IM, Preserv and ABX Free 18-64 YRS Unknown Completed [facility] Influenza Virus Vaccine Unknown Completed [facility] Influenza Virus Vaccine Quad .5 mL IM 6+ MO (FLUZONE/FLULAVAL/F LUARIX) Unknown Completed [facility] TDAP (ADACEL) VACCINE Unknown Completed [facility] Influenza Virus Vaccine Recomb Quad IM, Preserv and ABX Free 18-64 YRS Unknown Completed [facility] Influenza Virus Vaccine Unknown Completed [facility] Influenza Virus Vaccine Quad .5 mL IM 6+ MO (FLUZONE/FLULAVAL/F LUARIX) Unknown Completed [facility] TDAP (ADACEL) VACCINE Unknown Completed [facility] Influenza Virus Vaccine Recomb Quad IM, Preserv and ABX Free 18-64 YRS Unknown Completed [facility] Influenza Virus Vaccine Unknown Completed [facility] Influenza Virus Vaccine Quad .5 mL IM 6+ MO (FLUZONE/FLULAVAL/F LUARIX) Unknown Completed [facility] TDAP (ADACEL) VACCINE Unknown Completed [facility] Influenza Virus Vaccine Recomb Quad IM, Preserv and ABX Free 18-64 YRS Unknown Completed [facility] Influenza Virus Vaccine Unknown Completed [facility] Influenza Virus Vaccine Quad .5 mL IM 6+ MO (FLUZONE/FLULAVAL/F LUARIX) Unknown Completed [facility] TDAP (ADACEL) VACCINE Unknown Completed [facility] Influenza Virus Vaccine Recomb Quad IM, Preserv and ABX Free 18-64 YRS Unknown Completed [facility] Influenza Virus Vaccine Unknown Completed [facility] Influenza Virus Vaccine Quad .5 mL IM 6+ MO (FLUZONE/FLULAVAL/F LUARIX) Unknown Completed [facility] TDAP (ADACEL) VACCINE Unknown Completed [facility] Influenza Virus Vaccine Recomb Quad IM, Preserv and ABX Free 18-64 YRS Unknown Completed [facility] Influenza Virus Vaccine Unknown Completed [facility] Influenza Virus Vaccine Quad .5 mL IM 6+ MO (FLUZONE/FLULAVAL/F LUARIX) Unknown Completed [facility] TDAP (ADACEL) VACCINE Unknown Completed [facility] Influenza Virus Vaccine Recomb Quad IM, Preserv and ABX Free 18-64 YRS Unknown Completed [facility] Influenza Virus Vaccine Unknown Completed [facility] Influenza Virus Vaccine Quad .5 mL IM 6+ MO (FLUZONE/FLULAVAL/F LUARIX) Unknown Completed [facility] TDAP (ADACEL) VACCINE Unknown Completed [facility] Influenza Virus Vaccine Recomb Quad IM, Preserv and ABX Free 18-64 YRS Unknown Completed [facility] Influenza Virus Vaccine Unknown Completed [facility] Influenza Virus Vaccine Quad .5 mL IM 6+ MO (FLUZONE/FLULAVAL/F LUARIX) Unknown Completed [facility] TDAP (ADACEL) VACCINE Unknown Completed [facility] Influenza Virus Vaccine Recomb Quad IM, Preserv and ABX Free 18-64 YRS Unknown Completed [facility] Influenza Virus Vaccine Unknown Completed [facility] Influenza Virus Vaccine Quad .5 mL IM 6+ MO (FLUZONE/FLULAVAL/F LUARIX) Unknown Completed [facility] TDAP (ADACEL) VACCINE Unknown Completed [facility] Influenza Virus Vaccine Recomb Quad IM, Preserv and ABX Free 18-64 YRS Unknown Completed [facility] Influenza Virus Vaccine Unknown Completed [facility] Influenza Virus Vaccine Quad .5 mL IM 6+ MO (FLUZONE/FLULAVAL/F LUARIX) Unknown Completed [facility] TDAP (ADACEL) VACCINE Unknown Completed [facility] Influenza Virus Vaccine Recomb Quad IM, Preserv and ABX Free 18-64 YRS Unknown Completed [facility] Influenza Virus Vaccine Unknown Completed [facility] Influenza Virus Vaccine Quad .5 mL IM 6+ MO (FLUZONE/FLULAVAL/F LUARIX) Unknown Completed [facility] TDAP (ADACEL) VACCINE Unknown Completed [facility] Influenza Virus Vaccine Recomb Quad IM, Preserv and ABX Free 18-64 YRS Unknown Completed [facility] Influenza Virus Vaccine Unknown Completed [facility] Influenza Virus Vaccine Quad .5 mL IM 6+ MO (FLUZONE/FLULAVAL/F LUARIX) Unknown Completed [facility] TDAP (ADACEL) VACCINE Unknown Completed [facility] Influenza Virus Vaccine Recomb Quad IM, Preserv and ABX Free 18-64 YRS Unknown Completed [facility] Influenza Virus Vaccine Unknown Completed [facility] Influenza Virus Vaccine Quad .5 mL IM 6+ MO (FLUZONE/FLULAVAL/F LUARIX) Unknown Completed [facility] TDAP (ADACEL) VACCINE Unknown Completed [facility] Influenza Virus Vaccine Recomb Quad IM, Preserv and ABX Free 18-64 YRS Unknown Completed [facility] Influenza Virus Vaccine Unknown Completed [facility] Influenza Virus Vaccine Quad .5 mL IM 6+ MO (FLUZONE/FLULAVAL/F LUARIX) Unknown Completed [facility] TDAP (ADACEL) VACCINE Unknown Completed [facility] Influenza Virus Vaccine Quad .5 mL IM 6+ MO (FLUZONE/FLULAVAL/F LUARIX) Unknown Completed [facility] TDAP (ADACEL) VACCINE Unknown Completed [facility] Influenza Virus Vaccine Quad .5 mL IM 6+ MO (FLUZONE/FLULAVAL/F LUARIX) Unknown Completed [facility] TDAP (ADACEL) VACCINE Unknown Completed [facility] Influenza Virus Vaccine Quad .5 mL IM 6+ MO (FLUZONE/FLULAVAL/F LUARIX) Unknown Completed [facility] TDAP (ADACEL) VACCINE Unknown Completed [facility] Influenza Virus Vaccine Quad .5 mL IM 6+ MO (FLUZONE/FLULAVAL/F LUARIX) Unknown Completed [facility] TDAP (ADACEL) VACCINE Unknown Completed [facility] Influenza Virus Vaccine Quad .5 mL IM 6+ MO (FLUZONE/FLULAVAL/F LUARIX) Unknown Completed [facility] TDAP (ADACEL) VACCINE Unknown Completed [facility] Influenza Virus Vaccine Quad .5 mL IM 6+ MO (FLUZONE/FLULAVAL/F LUARIX) Unknown Completed [facility] TDAP (ADACEL) VACCINE Unknown Completed [facility] Influenza Virus Vaccine Quad .5 mL IM 6+ MO (FLUZONE/FLULAVAL/F LUARIX) Unknown Completed [facility] TDAP (ADACEL) VACCINE Unknown Completed [facility] Influenza Virus Vaccine Quad .5 mL IM 6+ MO (FLUZONE/FLULAVAL/F LUARIX) Unknown Completed [facility] TDAP (ADACEL) VACCINE Unknown Completed [facility] Influenza Virus Vaccine Quad .5 mL IM 6+ MO (FLUZONE/FLULAVAL/F LUARIX) Unknown Completed [facility] TDAP (ADACEL) VACCINE Unknown Completed [facility] Influenza Virus Vaccine Recomb Quad IM, Preserv and ABX Free 18-64 YRS Unknown Completed [facility] Influenza Virus Vaccine Unknown Completed [facility] Influenza Virus Vaccine Quad IM, Preserv and ABX Free 6 MO-64 YRS (FLUCELVAX) Unknown Completed [facility] Influenza Virus Vaccine Quad .5 mL IM 6+ MO (FLUZONE/FLULAVAL/F LUARIX) Unknown Completed [facility] TDAP (ADACEL) VACCINE Unknown Completed [facility] Influenza Virus Vaccine Recomb Quad IM, Preserv and ABX Free 18-64 YRS Unknown Completed [facility] Influenza Virus Vaccine Unknown Completed [facility] Influenza Virus Vaccine Quad IM, Preserv and ABX Free 6 MO-64 YRS (FLUCELVAX) Unknown Completed [facility] Influenza Virus Vaccine Quad .5 mL IM 6+ MO (FLUZONE/FLULAVAL/F LUARIX) Unknown Completed [facility] TDAP (ADACEL) VACCINE Unknown Completed [facility] Influenza Virus Vaccine Recomb Quad IM, Preserv and ABX Free 18-64 YRS Unknown Completed [facility] Influenza Virus Vaccine Unknown Completed [facility] Influenza Virus Vaccine Quad IM, Preserv and ABX Free 6 MO-64 YRS (FLUCELVAX) Unknown Completed [facility] Vital Signs Vital Name Observation Time Observation Value Comments S ource Systolic blood pressure 2024-08-02 17:21:00 119 mm[Hg] [facility] Diastolic blood pressure 2024-08-02 17:21:00 81 mm[Hg] [facility] Heart rate 2024-08-02 17:21:00 88 /min [facility] Body temperature 2024-08-02 17:21:00 36.78 [facility] Respiratory rate 2024-08-02 17:21:00 16 /min [facility] Oxygen saturation in Arterial blood by Pulse oximetry 2024-08-02 17:21:00 100 /min [facility] Body height 2024-08-02 15:11:00 154.9 cm [facility] Body weight 2024-08-02 15:11:00 52.164 kg [facility] BMI 2024-08-02 15:11:00 21.73 kg/m2 [facility] Systolic blood pressure 2024-05-19 20:32:57 137 mm[Hg] [facility] Diastolic blood pressure 2024-05-19 20:32:57 88 mm[Hg] [facility] Heart rate 2024-05-19 20:32:57 118 /min [facility] Respiratory rate 2024-05-19 20:32:57 18 /min [facility] Oxygen saturation in Arterial blood by Pulse oximetry 2024-05-19 20:32:57 100 /min [facility] Body temperature 2024-05-19 18:41:00 36.39 Irene [facility] Body height 2024-05-19 18:41:00 154.9 cm [facility] Body weight 2024-05-19 18:41:00 52.164 kg [facility] BMI 2024-05-19 18:41:00 21.73 kg/m2 [facility] Systolic blood pressure 2024-04-19 15:51:38 123 mm[Hg] [facility] Diastolic blood pressure 2024-04-19 15:51:38 90 mm[Hg] [facility] Heart rate 2024-04-19 15:51:38 87 /min [facility] Body temperature 2024-04-19 15:51:38 36.78 [facility] Respiratory rate 2024-04-19 15:51:38 14 /min [facility] Oxygen saturation in Arterial blood by Pulse oximetry 2024-04-19 15:51:38 100 /min [facility] Body height 2024-04-19 13:54:00 154.9 cm [facility] Body weight 2024-04-19 13:54:00 54.432 kg [facility] BMI 2024-04-19 13:54:00 22.67 kg/m2 [facility] Systolic blood pressure 2024-04-12 20:00:00 119 mm[Hg] [facility] Diastolic blood pressure 2024-04-12 20:00:00 80 mm[Hg] [facility] Heart rate 2024-04-12 20:00:00 88 /min [facility] Respiratory rate 2024-04-12 20:00:00 18 /min [facility] Oxygen saturation in Arterial blood by Pulse oximetry 2024-04-12 20:00:00 99 /min [facility] Body temperature 2024-04-12 19:00:00 36.67 Irene [facility] Body height 2024-04-12 17:57:10 154.9 cm [facility] Body weight 2024-04-12 17:57:10 54.432 kg [facility] BMI 2024-04-12 17:57:10 22.67 kg/m2 [facility] Systolic blood pressure 2024-04-12 16:25:00 124 mm[Hg] [facility] Diastolic blood pressure 2024-04-12 16:25:00 95 mm[Hg] [facility] Heart rate 2024-04-12 16:25:00 106 /min [facility] Body temperature 2024-04-12 16:25:00 37.17 [facility] Respiratory rate 2024-04-12 16:25:00 18 /min [facility] Oxygen saturation in Arterial blood by Pulse oximetry 2024-04-12 16:25:00 100 /min [facility] Body height 2024-04-12 15:25:00 154.9 cm [facility] Body weight 2024-04-12 15:25:00 54.432 kg [facility] BMI 2024-04-12 15:25:00 22.67 kg/m2 [facility] Systolic blood pressure 2024-03-13 13:25:00 129 mm[Hg] [facility] Diastolic blood pressure 2024-03-13 13:25:00 87 mm[Hg] [facility] Heart rate 2024-03-13 13:25:00 116 /min [facility] Body temperature 2024-03-13 13:25:00 35.61 [facility] Respiratory rate 2024-03-13 13:25:00 20 /min [facility] Oxygen saturation in Arterial blood by Pulse oximetry 2024-03-13 13:25:00 94 /min [facility] Body height 2024-03-10 14:43:00 154.9 cm [facility] Body weight 2024-03-10 14:43:00 44.453 kg [facility] BMI 2024-03-10 14:43:00 18.52 kg/m2 [facility] Systolic blood pressure 2024-03-05 16:10:00 142 mm[Hg] [facility] Diastolic blood pressure 2024-03-05 16:10:00 87 mm[Hg] [facility] Heart rate 2024-03-05 16:10:00 94 /min [facility] Body temperature 2024-03-05 16:10:00 37 Irene [facility] Respiratory rate 2024-03-05 16:10:00 16 /min [facility] Oxygen saturation in Arterial blood by Pulse oximetry 2024-03-05 16:10:00 100 /min [facility] Body height 2024-03-04 11:42:00 154.9 cm [facility] Body weight 2024-03-04 11:42:00 45.36 kg [facility] BMI 2024-03-04 11:42:00 18.89 kg/m2 [facility] Systolic blood pressure 2024-02-27 17:17:00 138 mm[Hg] [facility] Diastolic blood pressure 2024-02-27 17:17:00 91 mm[Hg] [facility] Heart rate 2024-02-27 17:17:00 97 /min [facility] [facility] Body temperature 2024-02-27 17:17:00 36.67 Irene [facility] Respiratory rate 2024-02-27 17:17:00 16 /min [facility] Oxygen saturation in Arterial blood by Pulse oximetry 2024-02-27 17:17:00 99 /min [facility] Body height 2024-02-27 13:16:00 154.9 cm [facility] Body weight 2024-02-27 13:16:00 45.36 kg [facility] BMI 2024-02-27 13:16:00 18.89 kg/m2 [facility] Systolic blood pressure 2024-02-27 15:50:00 122 mm[Hg] [facility] Diastolic blood pressure 2024-02-27 15:50:00 81 mm[Hg] [facility] Heart rate 2024-02-27 15:50:00 102 /min [facility] Respiratory rate 2024-02-27 15:50:00 13 /min [facility] Oxygen saturation in Arterial blood by Pulse oximetry 2024-02-27 15:50:00 98 /min [facility] Body temperature 2024-02-27 15:20:00 36 Irene [facility] Body height 2024-02-27 13:16:00 154.9 cm [facility] Body weight 2024-02-27 13:16:00 45.36 kg [facility] BMI 2024-02-27 13:16:00 18.89 kg/m2 [facility] Systolic blood pressure 2023-05-19 17:24:00 129 mm[Hg] [facility] Diastolic blood pressure 2023-05-19 17:24:00 83 mm[Hg] [facility] Heart rate 2023-05-19 17:24:00 77 /min [facility] Respiratory rate 2023-05-19 17:24:00 15 /min [facility] Oxygen saturation in Arterial blood by Pulse oximetry 2023-05-19 17:24:00 100 /min [facility] Body temperature 2023-05-19 14:50:00 37.28 Irene [facility] Body height 2023-05-19 14:50:00 154.9 cm [facility] Body weight 2023-05-19 14:50:00 58.968 kg [facility] BMI 2023-05-19 14:50:00 24.56 kg/m2 [facility] Systolic blood pressure 2023-01-15 16:56:00 132 mm[Hg] [facility] Diastolic blood pressure 2023-01-15 16:56:00 91 mm[Hg] [facility] Heart rate 2023-01-15 16:56:00 67 /min [facility] Body temperature 2023-01-15 16:56:00 36.78 Irene [facility] Respiratory rate 2023-01-15 16:56:00 20 /min [facility] Oxygen saturation in Arterial blood by Pulse oximetry 2023-01-15 16:56:00 100 /min [facility] Body height 2023-01-12 09:05:00 154.9 cm [facility] Body weight 2023-01-12 09:05:00 58.968 kg [facility] BMI 2023-01-12 09:05:00 24.56 kg/m2 [facility] Systolic blood pressure 2022-11-21 21:40:00 122 mm[Hg] [facility] Diastolic blood pressure 2022-11-21 21:40:00 90 mm[Hg] [facility] Heart rate 2022-11-21 21:40:00 92 [facility] 2022-11-21 21:40:00 16 /min [facility] Oxygen saturation in Arterial blood by Pulse oximetry 2022-11-21 21:40:00 99 /min [facility] Body temperature 2022-11-21 18:07:00 37.28 Irene [facility] Body weight 2022-11-21 18:07:00 68.04 kg [facility] BMI 2022-11-21 18:07:00 28.34 kg/m2 [facility] Systolic blood pressure 2022-09-05 17:22:00 139 mm[Hg] [facility] Diastolic blood pressure 2022-09-05 17:22:00 91 mm[Hg] [facility] Heart rate 2022-09-05 17:22:00 120 /min [facility] Respiratory rate 2022-09-05 17:22:00 18 /min [facility] Oxygen saturation in Arterial blood by Pulse oximetry 2022-09-05 17:22:00 99 /min [facility] Body temperature 2022-09-05 13:43:00 37.11 Irene [facility] Body weight 2022-09-05 13:43:00 68.04 kg [facility] BMI 2022-09-05 13:43:00 28.34 kg/m2 [facility] Systolic blood pressure 2022-08-01 00:49:00 138 mm[Hg] [facility] Diastolic blood pressure 2022-08-01 00:49:00 104 mm[Hg] [facility] Heart rate 2022-08-01 00:49:00 108 /min [facility] Respiratory rate 2022-08-01 00:49:00 18 /min [facility] Oxygen saturation in Arterial blood by Pulse oximetry 2022-08-01 00:49:00 99 /min [facility] Body temperature 2022-07-31 22:52:00 37.11 [facility] Body height 2022-07-31 22:52:00 154.9 cm [facility] Body weight 2022-07-31 22:52:00 68.04 kg [facility] BMI 2022-07-31 22:52:00 28.34 kg/m2 [facility] Systolic blood pressure 2022-07-15 15:32:00 130 mm[Hg] [facility] Diastolic blood pressure 2022-07-15 15:32:00 90 mm[Hg] [facility] Heart rate 2022-07-15 15:31:00 81 /min [facility] Body temperature 2022-07-15 15:31:00 36.94 Irene [facility] Respiratory rate 2022-07-15 15:31:00 16 /min [facility] Body weight 2022-07-15 15:31:00 68.493 kg [facility] BMI 2022-07-15 15:31:00 28.53 kg/m2 [facility] Oxygen saturation in Arterial blood by Pulse oximetry 2022-07-15 15:31:00 99 /min [facility] Systolic blood pressure 2022-06-23 15:26:00 111 mm[Hg] [facility] Diastolic blood pressure 2022-06-23 15:26:00 75 mm[Hg] [facility] Heart rate 2022-06-23 15:26:00 108 /min [facility] Body temperature 2022-06-23 15:26:00 36.83 Irene [facility] Respiratory rate 2022-06-23 15:26:00 18 /min [facility] Body height 2022-06-23 15:26:00 154.9 cm [facility] Body weight 2022-06-23 15:26:00 71.385 kg [facility] BMI 2022-06-23 15:26:00 29.74 kg/m2 [facility] Oxygen saturation in Arterial blood by Pulse oximetry 2022-06-23 15:26:00 99 /min [facility] Systolic blood pressure 2022-05-05 22:05:00 126 mm[Hg] [facility] Diastolic blood pressure 2022-05-05 22:05:00 75 mm[Hg] [facility] Heart rate 2022-05-05 22:05:00 99 /min [facility] Respiratory rate 2022-05-05 22:05:00 16 /min [facility] Oxygen saturation in Arterial blood by Pulse oximetry 2022-05-05 22:05:00 99 /min [facility] Body temperature 2022-05-05 18:24:00 37.11 Irene [facility] Body height 2022-05-05 18:24:00 154.9 cm [facility] Body weight 2022-05-05 18:24:00 54.432 kg [facility] BMI 2022-05-05 18:24:00 22.67 kg/m2 [facility] Systolic blood pressure 2022-04-26 14:28:00 135 mm[Hg] [facility] Diastolic blood pressure 2022-04-26 14:28:00 95 mm[Hg] [facility] Heart rate 2022-04-26 14:28:00 93 /min [facility] Body temperature 2022-04-26 14:28:00 36.89 Irene [facility] Respiratory rate 2022-04-26 14:28:00 18 /min [facility] Body height 2022-04-26 14:28:00 154.9 cm [facility] 2022-04-26 14:28:00 54.432 [facility] BMI 2022-04-26 14:28:00 22.67 kg/m2 [facility] Oxygen saturation in Arterial blood by Pulse oximetry 2022-04-26 14:28:00 100 /min [facility] Systolic blood pressure 2022-04-26 00:21:00 151 mm[Hg] [facility] Diastolic blood pressure 2022-04-26 00:21:00 98 mm[Hg] [facility] Heart rate 2022-04-26 00:21:00 98 /min [facility] Body temperature 2022-04-26 00:21:00 36.72 Irene [facility] Respiratory rate 2022-04-26 00:21:00 18 /min [facility] Body height 2022-04-26 00:21:00 154.9 cm [facility] Body weight 2022-04-26 00:21:00 54.432 kg [facility] BMI 2022-04-26 00:21:00 22.67 kg/m2 [facility] Oxygen saturation in Arterial blood by Pulse oximetry 2022-04-26 00:21:00 100 /min [facility] Systolic blood pressure 2022-04-09 14:39:00 122 mm[Hg] [facility] Diastolic blood pressure 2022-04-09 14:39:00 84 mm[Hg] [facility] Heart rate 2022-04-09 14:39:00 96 /min [facility] Body [facility] 2022-04-09 14:39:00 154.9 cm [facility] Body weight 2022-04-09 14:39:00 60.328 kg [facility] BMI 2022-04-09 14:39:00 25.13 kg/m2 [facility] Oxygen saturation in Arterial blood by Pulse oximetry 2022-04-09 14:39:00 98 /min [facility] Systolic blood pressure 2022-04-07 22:43:36 131 mm[Hg] [facility] Diastolic blood pressure 2022-04-07 22:43:36 83 mm[Hg] [facility] Heart rate 2022-04-07 22:43:36 113 /min [facility] Respiratory rate 2022-04-07 22:43:36 18 /min [facility] Oxygen saturation in Arterial blood by Pulse oximetry 2022-04-07 22:43:36 97 /min [facility] Body temperature 2022-04-07 19:41:00 37.17 Irene [facility] Body height 2022-04-07 19:41:00 154.9 cm [facility] Body weight 2022-04-07 19:41:00 60.328 kg [facility] BMI 2022-04-07 19:41:00 25.13 kg/m2 [facility] Systolic blood pressure 2022-03-24 19:00:00 125 mm[Hg] [facility] Diastolic blood pressure 2022-03-24 19:00:00 86 mm[Hg] [facility] Heart rate 2022-03-24 19:00:00 93 /min [facility] Respiratory rate 2022-03-24 19:00:00 17 /min [facility] Oxygen saturation in Arterial blood by Pulse oximetry 2022-03-24 19:00:00 97 /min [facility] Body temperature 2022-03-24 13:33:00 36.78 Irene [facility] Systolic blood pressure 2022-03-15 19:23:00 128 mm[Hg] [facility] Diastolic blood pressure 2022-03-15 19:23:00 89 mm[Hg] [facility] Heart rate 2022-03-15 19:23:00 104 /min [facility] Body weight 2022-03-15 19:23:00 60.328 kg [facility] BMI 2022-03-15 19:23:00 25.13 kg/m2 [facility] Oxygen saturation in Arterial blood by Pulse oximetry 2022-03-15 19:23:00 98 /min [facility] Systolic blood pressure 2022-03-15 15:02:00 115 mm[Hg] [facility] Diastolic blood pressure 2022-03-15 15:02:00 70 mm[Hg] [facility] Heart rate 2022-03-15 15:02:00 85 /min [facility] Respiratory rate 2022-03-15 15:02:00 20 /min [facility] Oxygen saturation in Arterial blood by Pulse oximetry 2022-03-15 15:02:00 99 /min [facility] Body temperature 2022-03-15 13:38:00 36.94 Irene [facility] Body height 2022-03-15 13:38:00 154.9 cm [facility] Body weight 2022-03-15 13:38:00 54.432 kg [facility] BMI 2022-03-15 13:38:00 22.67 kg/m2 [facility] Systolic blood pressure 2022-03-11 16:30:00 124 mm[Hg] [facility] Diastolic blood pressure 2022-03-11 16:30:00 88 mm[Hg] [facility] Heart rate 2022-03-11 16:30:00 93 /min [facility] Body temperature 2022-03-11 16:30:00 36.67 Irene [facility] Respiratory rate 2022-03-11 16:30:00 14 /min [facility] Oxygen saturation in Arterial blood by Pulse oximetry 2022-03-11 16:30:00 100 /min [facility] Body height 2022-03-11 14:19:00 154.9 cm [facility] Body weight 2022-03-11 14:19:00 58.968 kg [facility] BMI 2022-03-11 14:19:00 24.56 kg/m2 [facility] Systolic blood pressure 2022-02-27 14:14:00 140 mm[Hg] [facility] Diastolic blood pressure 2022-02-27 14:14:00 90 mm[Hg] [facility] Heart rate 2022-02-27 14:14:00 103 /min [facility] Body height 2022-02-27 14:14:00 154.9 cm [facility] Body weight 2022-02-27 14:14:00 59.194 kg [facility] BMI 2022-02-27 14:14:00 24.66 kg/m2 [facility] Oxygen saturation in Arterial blood by Pulse oximetry 2022-02-27 14:14:00 100 /min [facility] Systolic blood pressure 2022-02-27 13:19:00 131 mm[Hg] [facility] Diastolic blood pressure 2022-02-27 13:19:00 86 mm[Hg] [facility] Heart rate 2022-02-27 13:19:00 102 /min [facility] Body temperature 2022-02-27 13:19:00 36.33 Irene [facility] Body height 2022-02-27 13:19:00 154.9 cm [facility] Body weight 2022-02-27 13:19:00 58.968 kg [facility] BMI 2022-02-27 13:19:00 24.56 kg/m2 [facility] Oxygen saturation in Arterial blood by Pulse oximetry 2022-02-27 13:19:00 99 /min [facility] Systolic blood pressure 2022-02-21 08:06:00 135 mm[Hg] [facility] Diastolic blood pressure 2022-02-21 08:06:00 97 mm[Hg] [facility] Heart rate 2022-02-21 08:06:00 98 /min [facility] Respiratory rate 2022-02-21 08:06:00 16 /min [facility] Oxygen saturation in Arterial blood by Pulse oximetry 2022-02-21 08:06:00 97 /min [facility] Body temperature 2022-02-21 06:16:00 36.94 [facility] Body height 2022-02-21 06:16:00 154.9 cm [facility] Body weight 2022-02-21 06:16:00 60.963 kg [facility] BMI 2022-02-21 06:16:00 25.39 kg/m2 [facility] Systolic blood pressure 2022 20:08:00 136 mm[Hg] [facility] Diastolic blood pressure 2022 20:08:00 96 mm[Hg] [facility] Heart rate 2022 20:08:00 100 /min [facility] Respiratory rate 2022 20:08:00 20 /min [facility] Oxygen saturation in Arterial blood by Pulse oximetry 2022 20:08:00 98 /min [facility] Body temperature 2022 16:56:00 37.06 [facility] Body weight 2022 16:56:00 54.432 kg [facility] BMI 2022 16:56:00 22.67 kg/m2 [facility] Systolic blood pressure 2022-02-05 14:31:00 128 mm[Hg] [facility] Diastolic blood pressure 2022-02-05 14:31:00 84 mm[Hg] [facility] Heart rate 2022-02-05 14:31:00 86 /min [facility] Body temperature 2022-02-05 14:31:00 37.89 [facility] Respiratory rate 2022-02-05 14:31:00 18 /min [facility] Body height 2022-02-05 14:31:00 154.9 cm [facility] Body weight 2022-02-05 14:31:00 54.432 kg [facility] BMI 2022-02-05 14:31:00 22.67 kg/m2 [facility] Oxygen saturation in Arterial blood by Pulse oximetry 2022-02-05 14:31:00 98 /min [facility] Systolic blood pressure 2022-01-18 14:50:00 144 mm[Hg] [facility] Diastolic blood pressure 2022-01-18 14:50:00 92 mm[Hg] [facility] Heart rate 2022-01-18 14:50:00 94 /min [facility] Respiratory rate 2022-01-18 14:50:00 20 /min [facility] Oxygen saturation in Arterial blood by Pulse oximetry 2022-01-18 14:50:00 99 /min [facility] Body weight 2022-01-18 10:18:00 54.432 kg [facility] BMI 2022-01-18 10:18:00 22.67 kg/m2 [facility] Body temperature 2022-01-18 10:15:00 36.72 [facility] Systolic blood pressure 2022-01-15 15:48:26 125 mm[Hg] [facility] Diastolic blood pressure 2022-01-15 15:48:26 85 mm[Hg] [facility] Heart rate 2022-01-15 15:48:26 95 /min [facility] Respiratory rate 2022-01-15 15:48:26 18 /min [facility] Oxygen saturation in Arterial blood by Pulse oximetry 2022-01-15 15:48:26 98 /min [facility] Body temperature 2022-01-15 13:32:00 37.11 [facility] Body height 2022-01-15 13:32:00 154.9 cm [facility] Body weight 2022-01-15 13:32:00 54.432 kg [facility] BMI 2022-01-15 13:32:00 22.67 kg/m2 [facility] Systolic blood pressure 2022-01-09 00:37:11 127 mm[Hg] [facility] Diastolic blood pressure 2022-01-09 00:37:11 90 mm[Hg] [facility] Heart rate 2022-01-09 00:37:11 94 /min [facility] Body temperature 2022-01-09 00:37:11 37.11 [facility] Respiratory rate 2022-01-09 00:37:11 16 /min [facility] Oxygen saturation in Arterial blood by Pulse oximetry 2022-01-09 00:37:11 97 /min [facility] Body height 2022-01-08 23:03:00 154.9 cm [facility] Body weight 2022-01-08 23:03:00 58.06 kg [facility] BMI 2022-01-08 23:03:00 24.19 kg/m2 [facility] Systolic blood pressure 2021-12-12 18:00:00 126 mm[Hg] [facility] Diastolic blood pressure 2021-12-12 18:00:00 87 mm[Hg] [facility] Heart rate 2021-12-12 18:00:00 86 /min [facility] Body temperature 2021-12-12 18:00:00 36.89 Irene [facility] Respiratory rate 2021-12-12 18:00:00 18 /min [facility] Body height 2021-12-12 18:00:00 154.9 cm [facility] Body weight 2021-12-12 18:00:00 57.153 kg [facility] BMI 2021-12-12 18:00:00 23.81 kg/m2 [facility] Systolic blood pressure 2023-01-14 16:32:00 138 mm[Hg] [facility] Diastolic blood pressure 2023-01-14 16:32:00 84 mm[Hg] [facility] Heart rate 2023-01-14 16:32:00 67 /min [facility] Body temperature 2023-01-14 16:32:00 36.5 Irene [facility] Respiratory rate 2023-01-14 16:32:00 16 /min [facility] Oxygen saturation in Arterial blood by Pulse oximetry 2023-01-14 16:32:00 99 /min [facility] Body height 2023-01-12 09:05:00 154.9 cm [facility] Body weight 2023-01-12 09:05:00 58.968 kg [facility] BMI 2023-01-12 09:05:00 24.56 kg/m2 [facility] Procedures Procedure Date / Time Performed Performing Clinician Source POCT TEST 2024-05-19 20:10:00 Anamaria Gonzales [facility] L[facility]ASE 2024-05-19 [facility]46310[facility] 2024-05-19 19:53:00 Anamaria Gonzales [facility] CBC WITH DIFF 2024-05-19 19:53:00 Anamaria Gonzales [facility] URINALYSIS 2024-05-19 [facility]AST 2024-04-19 14:51:33 Rosnedo Levy [facility] POCT TEST 2024-04-19 14:21:00 Rosendo Levy [facility] LIPASE 2024-04-19 14:18:00 Rosendo Levy [facility] COMP. METABOLIC PANEL ([id number]) 2024-04-19 14:18:00 Rosendo Levy [facility] CBC WITH DIFF 2024-04-19 14:18:00 Rosendo Levy [facility] URINALYSIS 2024-04-19 14:18:00 Rosendo Levy [facility] XR ANKLE <3 VW LEFT 2024-04-12 18:36:00 Niranjan Neeta [facility] XR FOOT <3 VW LEFT 2024-04-12 18:36:00 Niranjan [facility] XR TIBIA FIBULA 2 VW LEFT 2024-04-12 18:36:00 Niranjan Neeta [facility] CT TRAUMA HEAD WO CONTRAST 2024-04-12 18:27:49 Niranjan Neeta [facility] CT TRAUMA CERVICAL SPINE WO CONTRAST 2024-04-12 18:27:49 Neeta Ureña [facility] CT TRAUMA THORACIC SPINE WO CONTRAST 2024-04-12 18:27:49 Niranjan Neeta [facility] CT TRAUMA LUMBAR SPINE WO CONTRAST 04-12 18:27:49 Neeta Ureña [facility] XR CHEST 1 VW 2024-04-12 15:50:27 Maggie Hamilton [facility] COMP. METABOLIC PANEL ([id number]) 2024-04-12 15:43:00 Maggie Hamilton [facility] CBC WITH DIFF 2024-04-12 15:43:00 Maggie Hamilton [facility] HB ABO GROUPING 2024-04-12 15:43:00 Maggie Hamilton [facility] ER FAST ULTRASOUND 2024-04-12 15:36:51 Maggie Hamilton [facility] MAGNESIUM 2024-03-13 10:20:00 Ellis Burgess [facility] BASIC METABOLIC PANEL (NA, K , CL, CO2, GLUCOSE, BUN, CREATININE, CA) 2024-03-13 10:20:00 Ellis Burgess [facility] CBC WITH DIFF 2024-03-13 10:20:00 Ellis Burgess Rodger [facility] FECAL PATHOGENS BY PCR 2024-03-12 17:51:00 Mars [facility] CLOSTRIDIUM DIFFICILE TOXIN 2024-03-12 17:50:00 Mars [facility] LAB ONLY C. DIFFICILE TOXIN B GENE (TCDB) BY PCR 2024-03-12 17:50:00 Mars [facility] SUPERIOR MESENTERIC ARTERY D UPLEX - BY VASCULAR LAB 2024-03-12 14:06[facility]12 11:14[facility] (NA, K , CL, CO2, GLUCOSE, BUN, CREATININE, CA) 2024-03-12 11:14:00 [facility]FF 2024-03-12 11:14:00 [facility] 2024-03-11 10:47:00 Meryl Tang [facility] BASIC METABOLIC PANEL (NA, K , CL, CO2, GLUCOSE, BUN, CREATININE, CA) 2024-03-11 10:47:00 Koleti, [facility] CBC WITH DIFF 2024-03-11 10:47:00 Kitty [facility] CT ABDOMEN PELVIS WO CONTRAST 2024-03-10 19:46:10 Venkat [facility] LIPASE 2024-03-10 15:42:00 Venkat [facility] TEST, SERUM 2024-03-10 15:42:00 Alfredo Parra [facility] COMP. METABOLIC PANEL ([id number]) 2024-03-10 15:42:00 Venkat [facility] URINE DRUG (IMMUNOASSAY) - COMPREHENSIVE DRUG SCREEN 2024-03-10 15:42:00 Kitty [facility] CBC WITH DIFF 2024-03-10 15:42:00 Venkat [facility] URINALYSIS 2024-03-10 15:42:00 Venkat [facility] EXTRA TUBE DK. GREEN 2024-03-10 15:42:00 Fidel [facility] CT ABDOMEN PELVIS WO CONTRAST 2024-03-04 13:43:16 Alexander Richard [facility] POCT TEST 2024-03-04 13:14:00 Alexander Richard [facility] LIPASE 2024-03-04 13:13:00 Alexander Richard [facility] COMP. METABOLIC PANEL ([id number]) 2024-03-04 13:13:00 Alexander Richard [facility] CBC WITH DIFF 2024-03-04 13:13:00 Alexander Richard [facility] URINALYSIS 2024-03-04 13:13:00 Alexander Richard [facility] ENDOSCOPY PROCEDURE DOCUMENTATION 2023-05 0-18 14:46:53 Doctor Unassigned, [facility] FLEXIBLE SIGMOIDOSCOPY (ENDO) 2024-02-27 15:42:37 Hany Lee [facility] FLEXIBLE SIGMOIDOSCOPY (ENDO) 2024-02-27 15:42:37 Hany Lee [facility] EGD (ENDO) 2024-02-27 15:39:44 Hany Lee [facility] EGD (ENDO) 2024-02-27 15:39:44 Hany Lee [facility] ESOPHAGOGASTRODUODENOSCOPY 2024-02-27 14:11:00 Jas Buenrostro [facility] FLEXIBLE SIGMOIDOSCOPY 2024-02-27 14:11:00 Jas Buenrostro [facility] MAGNESIUM 2024-02-27 09:37:00 Jose Carlos Urbina [facility] HEPATIC FUNCTION PANEL (8007 6) (ALB,T.PRO,BILI T,BU/BC,ALT,AST,ALK PHOS) 2024-02-27 09:37:00 Jose Carlos Urbina [facility] BASIC METABOLIC PANEL (NA, K , CL, CO2, GLUCOSE, BUN, CREATININE, CA) 2024-02-27 09:37:00 Jose Carlos Urbina [facility] CBC WITH DIFF 2024-02-27 09:37:00 Jose Carlos Urbina [facility] MAGNESIUM 2024-02-27 09:37:00 Jose Carlos Urbina [facility] HEPATIC FUNCTION PANEL (8007 6) (ALB,T.PRO,BILI T,BU/BC,ALT,AST,ALK PHOS) 2024-02-27 09:37:00 Jose Carlos Urbina [facility] BASIC METABOLIC PANEL (NA, K , CL, CO2, GLUCOSE, BUN, CREATININE, CA) 2024-02-27 09:37:00 Jose Carlos Urbina [facility] CBC WITH DIFF 2024-02-27 09:37:00 Jose Carlos Urbina [facility] CALPROTECTIN, FECAL 2024-02-26 22:49:00 Jose Carlos Urbina [facility] CALPROTECTIN, FECAL 2024-02-26 22:49:00 Jose Carlos Urbina [facility] XR KUB 2024-02-26 20:00:00 Jose Carlos Urbina [facility] XR KUB 2024-02-26 20:00:00 Jose Carlos Urbina [facility] MAGNESIUM 2024-02-26 16:17:00 Naty Buenrostro [facility] HEPATIC FUNCTION PANEL (8007 6) (ALB,T.PRO,BILI T,BU/BC,ALT,AST,ALK PHOS) 2024-02-26 16:17:00 Chitra [facility] BASIC METABOLIC PANEL (NA, K , CL, CO2, GLUCOSE, BUN, CREATININE, CA) 2024-02-26 16:17:00 Chitra [facility] PROTHROMBIN TIME / INR 2024-02-26 16:17:00 Chitra [facility] MAGNESIUM 2024-02-26 16:17:00 Chitra [facility] HEPATIC FUNCTION PANEL (8007 6) (ALB,T.PRO,BILI T,BU/BC,ALT,AST,ALK PHOS) 2024-02-26 16:17:00 Buenrostro, [facility] BASIC METABOLIC PANEL [...] PHOS) 2024-02-25 10:52:00 Jose Carlos Urbina [facility] BASIC METABOLIC PANEL (NA, K , CL, CO2, GLUCOSE, BUN, CREATININE, CA) 2024-02-25 10:52:00 Jose Carlos Urbina [facility] CREATINE KINASE 2024-02-25 10:52:00 Chitra [facility] HEPATIC FUNCTION PANEL (8007 6) (ALB,T.PRO,BILI T,BU/BC,ALT,AST,ALK PHOS) 2024-02-25 10:52:00 Jose Carlos Urbina [facility] BASIC METABOLIC PANEL (NA, K , CL, CO2, GLUCOSE, BUN, CREATININE, CA) 2024-02-25 10:52:00 Jose Carlos Urbina [facility] MAGNESIUM 2024-02-24 09:54:00 Naty Buenrostro [facility] HEPATIC FUNCTION PANEL (8007 6) (ALB,T.PRO,BILI T,BU/BC,ALT,AST,ALK PHOS) 2024-02-24 09:54:00 Jose Carlos Urbina [facility] BASIC METABOLIC PANEL (NA, K , CL, CO2, GLUCOSE, BUN, CREATININE, CA) 2024-02-24 09:54:00 Jose Carlos Urbina [facility] CBC WITH DIFF 2024-02-24 09:54:00 [facility] 2024-02-24 09:54:00 Naty Buenrostro [facility] HEPATIC FUNCTION PANEL (8007 6) (ALB,T.PRO,BILI T,BU/BC,ALT,AST,ALK PHOS) 2024-02-24 09:54:00 Jose Carlos Urbina [facility] BASIC METABOLIC PANEL (NA, K , CL, CO2, GLUCOSE, BUN, CREATININE, CA) 2024-02-24 09:54:00 Jose Carlos Urbina [facility] CBC WITH DIFF 2024-02-24 09:54:00 Naty Buenrostro [facility] POCT GLUCOSE (AUTOMATED) 2024-02-24 01:34:00 Hany Lee [facility] POCT GLUCOSE (AUTOMATED) 2024-02-24 01:34:00 Hany Lee [facility] HEPATIC FUNCTION PANEL (8007 6) (ALB,T.PRO,BILI T,BU/BC,ALT,AST,ALK PHOS) 2024-02-23 17:51:00 [facility]FF 2024-02-23 17:51:00 [facility] HAV ANTIBODY (IGG AND IGM) 2024-02-23 17:51:00 Buenrostor, [facility] ENDOMYSIAL AB, IGA [...] Hospital XR CHEST 2 VW 2024-02-22 17:16:00 [place] Adriana [facility] XR CHEST 2 VW 2024-02-22 17:16:00 [place] Adriana [facility] US ABDOMEN LIMITED 2024-02-22 16:59:52 [place] Adriana [facility] US ABDOMEN LIMITED 2024-02-22 16:59:52 [place] Adriana [facility] LIPASE 2024-02-22 15:19:00 Colin Jones [facility] TEST, SERUM 2024-02-22 15:19:00 Banipal Morrical, [facility] C-REACTIVE PROTEIN 2024-02-22 15:19:00 [facility] TROPONIN I 2024-02-22 15:19:00 Stephanie Lou [facility] HEPATIC FUNCTION PANEL (8007 6) (ALB,T.PRO,BILI T,BU/BC,ALT,AST,ALK PHOS) 2024-02-22 15:19:00 Chitra [facility] COMP. METABOLIC PANEL (45203) 2024-02-22 15:19:00 Stephanie Lou [facility] URINE DRUG (IMMUNOASSAY) - COMPREHENSIVE DRUG SCREEN 2024-02-22 15:19:00 Chitra [facility] SEDIMENTATION RATE 2024-02-22 15:19:00 Chitra [facility] CBC WITH DIFF 2024-02-22 15:19:00 Stephanie Lou [facility] URINALYSIS 2024-02-22 15:19:00 Stephanie Lou [facility] HEPATITIS B SURFACE ANTIBODY 2024-02-22 15:19:00 Chitra [facility] HEPATITIS B SURFACE ANTIGEN 2024-02-22 15:19:00 Chitra [facility] HCV ANTIBODY 2024-02-22 15:19:00 Chitra [facility] HBC ANTIBODY (IGM & IGG) 2024-02-22 15:19:00 Chitra [facility] HIV 1/2 AG-AB WITH REFLEX 2024-02-22 15:19:00 Chitra [facility] DEAMIDATED GLIADIN IGG 2024-02-22 15:19:00 Chitra [facility] LIPASE 2024-02-22 15:19:00 Stephanie Lou [facility] TEST, SERUM 2024-02-22 15:19:00 Stephanie Lou [facility] C-REACTIVE PROTEIN 2024-02-22 15:19:00 Chitra [facility] TROPONIN I 2024-02-22 15:19:00 Stephanie Lou [facility] HEPATIC FUNCTION PANEL (8007 6) (ALB,T.PRO,BILI T,BU/BC,ALT,AST,ALK PHOS) 2024-02-22 15:19:00 Chitra [facility] COMP. METABOLIC PANEL (17360) 2024-02-22 15:19:00 Stephanie Lou [facility] URINE DRUG (IMMUNOASSAY) - COMPREHENSIVE DRUG SCREEN 2024-02-22 15:19:00 Chitra [facility] SEDIMENTATION RATE 2024-02-22 15:19:00 Chitra [facility] CBC WITH DIFF 2024-02-22 15:19:00 Stephanie Lou [facility] URINALYSIS 2024-02-22 15:19:00 Stephanie Lou [facility] HEPATITIS B SURFACE ANTIBODY 2024-02-22 15:19:00 Chitra [facility] HEPATITIS B SURFACE ANTIGEN 2024-02-22 15:19:00 Chitra [facility] HCV ANTIBODY 2024-02-22 15:19:00 Chitra [facility] HBC ANTIBODY (IGM & IGG) 2024-02-22 15:19:00 Chitra [facility] HIV 1/2 AG-AB WITH REFLEX 2024-02-22 15:19:00 Chitra [facility] DEAMIDATED GLIADIN IGG 2024-02-22 15:19:00 Chitra [facility] COMP. METABOLIC PANEL (58639) 2023-05-19 17:22:00 Verito [facility] CT ABDOMEN PELVIS W CONTRAST 2023-05-19 15:59:54 Verito [facility] LIPASE 2023-05-19 15:43:00 Veirto [facility] CBC WITH DIFF 2023-05-19 15:43:00 Verito [facility] URINALYSIS 2023-05-19 15:32:00 Tod Aguilar [facility] POCT TEST 2023-05-19 15:31:00 Tod Aguilar [facility] CONSENT/REFUSAL FOR DIAGNOSI S AND TREATMENT 2023-05-19 14:37:15 Doctor Unassigned, [facility] PHOSPHORUS 2023-01-15 08:15:00 Benita Rockwell [facility] MAGNESIUM 2023-01-15 08:15:00 Moiz Benita [facility] BASIC METABOLIC PANEL (NA, K , CL, CO2, GLUCOSE, BUN, CREATININE, CA) 2023-01-15 08:15:00 [facility]FF 2023-01-15 08:15:00 Moiz [facility] PROTHROMBIN TIME / INR 2023-01-15 08:15:00 [facility] 2023-01-14 10:14:00 [facility] PHOS[facility]US 2023-01-14 10:14:00 [facility] BASIC METABOLIC PANEL (NA, K , CL, CO2, GLUCOSE, BUN, CREATININE, CA) 2023-01-14 10:14:00 Benita Rockwell [facility] CBC WITH DIFF 2023-01-14 10:14:00 [facility] 2023-01-14 10:14:00 Benita Rockwell [facility] MAGNESIUM 2023-01-14 10:14:00 [facility] BASIC METABOLIC PANEL (NA, K , CL, CO2, GLUCOSE, BUN, CREATININE, CA) 2023-01-14 10:14:00 [facility] WITH DIFF 2023-01-14 10:14:00 [facility] WITH DIFF 2023-01-13 10:45:00 Rodolfo Riggins [facility] BASIC METABOLIC PANEL (NA, K , CL, CO2, GLUCOSE, BUN, CREATININE, CA) 2023-01-13 10:45:00 Vaishnavi, [facility] MAGNESIUM 2023-01-13 10:45:00 Vaishnavi, [facility] PHOSPHORUS 2023-01-13 10:45:00 Vaishnavi, [facility] HEPATIC FUNCTION PANEL (8007 6) (ALB,T.PRO,BILI T,BU/BC,ALT,AST,ALK PHOS) 2023-01-13 10:45:00 Vaishnavi, [facility] PHOSPHORUS 2023-01-13 10:45:00 Vaishnavi, [facility] MAGNESIUM 2023-01-13 10:45:00 Vaishnavi, [facility] HEPATIC FUNCTION PANEL (8007 6) (ALB,T.PRO,BILI T,BU/BC,ALT,AST,ALK PHOS) 2023-01-13 10:45:00 Vaishnavi, [facility] BASIC METABOLIC PANEL (NA, K , CL, CO2, GLUCOSE, BUN, CREATININE, CA) 2023-01-13 10:45:00 Vaisnhavi, [facility] CBC WITH DIFF 2023-01-13 10:45:00 Vaishnavi, [facility] GLUCOSE BODY FLUID 2023-01-12 20:44:00 Vaishnavi, [facility] BODY FLUID MANUAL DIFF 2023-01-12 20:44:00 Vaishnavi, [facility] T.PROTEIN BODY FLUID 2023-01-12 20:44:00 Vaishnavi, [facility] ASPIRATE OR ABSCESS CULTURE(AEROBIC/ANAEROBIC) 2023-01-12 20:44:00 Vaishnavi, [facility] LDH TOTAL BODY FLUID 2023-01-12 20:44:00 Vaishnavi, [facility] GLUCOSE BODY FLUID 2023-01-12 20:44:00 Vaishnavi, [facility] T.PROTEIN BODY FLUID 2023-01-12 20:44:00 Vaishnavi, [facility] BODY FLUID DIRECT COUNT 2023-01-12 20:44:00 Vaishnavi, [facility] ASPIRATE OR ABSCESS CULTURE(AEROBIC/ANAEROBIC) 2023-01-12 20:44:00 Vaishnavi, [facility] LDH TOTAL BODY FLUID 2023-01-12 20:44:00 Vaishnavi, [facility] PROTHROMBIN TIME / INR 2023-01-12 08:13:00 Vaishnavi, [facility] PROTHROMBIN TIME / INR 2023-01-12 08:13:00 Vaishnavi, [facility] COMP. METABOLIC PANEL (04416) 2023-01-12 03:49:00 [facility] METABOLIC PANEL (17600) 2023-01-12 03:49:00 Zehra García [facility] CT ABDOMEN PELVIS W CONTRAST 2023-01-12 03:32:06 [facility]EL[facility] W CONTRAST 2023-01-12 03:32:06 Zehra García [facility] POCT TEST 2023-01-12 03:02:00 [facility] 2023-01-12 03:02:00 Zehra García [facility] URINALYSIS 2023-01-12 02:56:00 Zehra García [facility] LIPASE 2023-01-12 02:56:00 Zehra García [facility] TOTAL BETA HCG ASSAY 2023-01-12 02:56:00 Zehra García [facility] CBC WITH DIFF 2023-01-12 02:56:00 Zehra García [facility] EXTRA TUBE ORANGE 2023-01-12 02:56:00 [facility] 2023-01-12 02:56:00 David Siddiquiemy [facility] LIPASE 2023-01-12 02:56:00 [facility] TOTAL BETA HCG ASSAY 2023-01-12 02:56:00 [facility] CBC WITH DIFF 2023-01-12 02:56:00 Zehra García [facility] URINALYSIS 2023-01-12 02:56:00 Zehra García [facility] EXTRA TUBE LAV 2023-01-12 02:56:00 Miguel Ángel Siddiqui [facility] EXTRA TUBE ORANGE 2023-01-12 02:56:00 Miguel Ángel Siddiqui [facility] CONSENT/REFUSAL FOR DIAGNOSI S AND TREATMENT 2023-01-12 01:46:10 Doctor Unassigned, [facility] CONSENT/REFUSAL FOR DIAGNOSI S AND TREATMENT 2023-01-12 01:46:10 Doctor Unassigned, [facility] ASSIGNMENT OF BENEFITS 2022-11-21 19:49:02 Doctor Unassigned, [facility] ASSIGNMENT OF BENEFITS 2022-11-21 19:49:02 Doctor Unassigned, [facility] CONSENT/REFUSAL FOR DIAGNOSI S AND TREATMENT 2022-11-21 18:03:25 Doctor Unassigned, [facility] CONSENT/REFUSAL FOR DIAGNOSI S AND TREATMENT 2022-11-21 18:03:25 Doctor Unassigned, [facility] EMERGENCY SERVICES AGREEMENT S AND AUTHORIZATIONS 2022-11-21 05:01:00 Doctor Unassigned, [facility] CONSENT/REFUSAL FOR DIAGNOSI S AND TREATMENT 2022-09-05 13:42:02 Doctor Unassigned, [facility] LIPASE 2022-07-31 23:13:00 [facility]ane [facility] TEST, SERUM 2022-07-31 23:13:00 Blane [facility] COMP. METABOLIC PANEL (17874) 2022-07-31 23:13:00 Blane [facility] CBC WITH DIFF 2022-07-31 23:13:00 Blane [facility] CONSENT/REFUSAL FOR DIAGNOSI S AND TREATMENT 2022-07-31 22:49:17 Doctor Unassigned, [facility] XR ANKLE 3+ VW RIGHT 2022-07-15 16:00:00 Beba Kaur [facility] XR FOOT 3+ VW RIGHT 2022-07-15 16:00:00 Beba Kaur [facility] XR FOOT 3+ VW RIGHT 2022-07-15 16:00:00 Beba Kaur [facility] PATIENT FINANCIAL POLICY 2022-07-15 15:25:53 Doctor Unassigned, [facility] POCT MOLECULAR STREP 2022-06-23 16:06:00 Unknown, Attending [facility] ASSIGNMENT OF BENEFITS 2022-06-23 15:18:28 Doctor Unassigned, [facility] COMP. METABOLIC PANEL ([id number]) 2022-05-05 19:14:00 Errol [facility] CBC WITH DIFF 2022-05-05 19:14:00 Errol [facility] POCT TEST 2022-05-05 19:00:00 Errol [facility] URINALYSIS 2022-05-05 18:58:00 [facility] WO CONTRAST 2022-04-26 15:11:00 [facility]. METABOLIC PANEL ([id number]) 2022-04-26 14:49:00 Singer [facility] CBC WITH DIFF 2022-04-26 14:49:00 Singer [facility] URINALYSIS 2022-04-26 14:49:00 Singer [facility] POCT TEST 2022-04-26 14:45:00 Singer [facility] CONSENT/REFUSAL FOR DIAGNOSI S AND TREATMENT 2022-04-26 14:22:29 Doctor Unassigned, [facility] POCT TEST 2022-04-26 01:22:00 Singer [facility] ASSIGNMENT OF BENEFITS 2022-04-26 00:54:02 Doctor Unassigned, [facility] URINALYSIS 2022-04-26 00:45:00 Singer [facility] CONSENT/REFUSAL FOR DIAGNOSI S AND TREATMENT 2022-04-26 00:16:47 Doctor Unassigned, [facility] BASIC METABOLIC PANEL (NA, K , CL, CO2, GLUCOSE, BUN, CREATININE, CA) 2022-04-07 22:35:00 Olamide Garvin [facility] CBC WITH DIFF 2022-04-07 22:35:00 Olamide Garvin [facility] URINALYSIS 2022-04-07 21:36:00 Olamide Garvin [facility] URINE DRUG (IMMUNOASSAY) - COMPREHENSIVE DRUG SCREEN W/O REFLEX 2022-04-07 21:36:00 Olamide Garvin [facility] CONSENT/REFUSAL FOR DIAGNOSI S AND TREATMENT 2022-04-07 19:29:15 Doctor Unassigned, [facility] POCT TEST 2022-03-24 14:07:00 Kellie Piper [facility] CONSENT/REFUSAL FOR DIAGNOSI S AND TREATMENT 2022-03-24 13:27:20 Doctor Unassigned, [facility] CT ABDOMEN PELVIS WO CONTRAST 2022-03-15 14:09:04 Lydia Colmenares [facility] URINALYSIS 2022-03-15 13:53:00 Lydia Colmenares [facility] POCT TEST 2022-03-15 13:52:00 Lydia Colmenares [facility] CONSENT/REFUSAL FOR DIAGNOSI S AND TREATMENT 2022-03-15 13:37:02 Doctor Unassigned, [facility] POCT TEST 2022-03-11 14:59:00 Angelica Viveros [facility] FLU VACC ([id number]), 6 MO-6 4 YRS, .5ML, IM, QUAD (FLUCELVAX) 2022-02-27 13:34:55 Ca Martinez [facility] NOTICE OF PRIVACY PRACTICES 2022-02-21 06:06:30 Doctor Unassigned, [facility] CONSENT/REFUSAL FOR DIAGNOSI S AND TREATMENT 2022-02-21 06:03:41 Doctor Unassigned, [facility] XR ANKLE <3 VW RIGHT 2022 17:56:42 Maggie Hamilton [facility] CT ABDOMEN PELVIS W CONTRAST 2022 17:44:17 Maggie Hamilton [facility] CT TRAUMA CERVICAL SPINE WO CONTRAST 2022 17:43:49 Maggie Hamilton [facility] POCT TEST 2022 17:27:00 Maggie Hamilton [facility] COMP. METABOLIC PANEL ([id number]) 2022 17:17:00 Maggie Hamilton [facility] CBC WITH DIFF 2022 17:17:00 Maggie Hamilton [facility] CONSENT/REFUSAL FOR DIAGNOSI S AND TREATMENT 2022 16:53:13 Doctor Unassigned, [facility] US GALL BLADDER 2022-01-18 12:31:09 Rosendo Levy [facility] US PELVIS COMPLETE WITH TRANSVAGINAL 2022-01-18 12:21:13 Melvin Zhao [facility] CT ABDOMEN PELVIS W CONTRAST 2022-01-18 11:20:50 Melvin Zhao [facility] POCT TEST 2022-01-18 10:57:00 Juan Kennedy [facility] COVID-19 (ID NOW RAPID TESTING) 10:57:00 Juan Kennedy [facility] URINALYSIS 2022-01-18 10:47:00 Juan Kennedy [facility] LIPASE 2022-01-18 10:29:00 Juan Kennedy [facility] TEST, SERUM 2022-01-18 10:29:00 Juan Kennedy [facility] HEPATIC FUNCTION PANEL (8007 6) (ALB,T.PRO,BILI T,BU/BC,ALT,AST,ALK PHOS) 2022-01-18 10:29:00 Juan Kennedy [facility] BASIC METABOLIC PANEL (NA, K , CL, CO2, GLUCOSE, BUN, CREATININE, CA) 2022-01-18 10:29:00 Juan Kennedy [facility] CBC WITH DIFF 2022-01-18 10:29:00 Juan Kennedy [facility] CONSENT/REFUSAL FOR DIAGNOSI S AND TREATMENT 2022-01-18 10:13:31 Doctor Unassigned, [facility] CT HEAD WO CONTRAST 2022-01-15 15:22:29 Maura Cox [facility] TEST, SERUM 2022-01-15 14:36:00 Maura Cox [facility] BASIC METABOLIC PANEL (NA, K , CL, CO2, GLUCOSE, BUN, CREATININE, CA) 2022-01-15 14:36:00 Maura Cox [facility] CBC WITH DIFF 2022-01-15 14:36:00 Maura Cox [facility] CONSENT/REFUSAL FOR DIAGNOSI S AND TREATMENT 2022-01-15 13:28:12 Doctor Unassigned, [facility] XR CERVICAL SPINE 4 VW 2022-01-09 00:29:16 Gabriela [facility] XR LUMBAR SPINE 4 VW 2022-01-09 00:29:16 Gabriela [facility] XR SPINE THORACIC 3 VW 2022-01-09 00:29:16 Gabriela [facility] URINALYSIS 2022-01-08 23:50:00 Gabriela [facility] CONSENT/REFUSAL FOR DIAGNOSI S AND TREATMENT 2022-01-08 22:51:08 Doctor Unassigned, [facility] GALV ONLY - VAGINAL PATHOGEN S BY NUCLEIC ACID TESTING 2021-12-12 18:37:00 Prasanna Vargas [facility] URINE CULTURE 2021-12-12 18:32:00 Prasanna Vargas [facility] POCT TEST 2021-12-12 18:31:00 Prasanna Vargas [facility] POCT URINALYSIS W/O SPECIFIC GRAVITY 2021-12-12 18:31:00 Prasanna Vargas [facility] Encounters Start Date/Time End Date/Time Encounter Type Admission Type Attending Clinicians Care Facility Care Department Encounter ID Source 2021-03-14 03:14:31 Emergency [facility] [id number] [facility] 2021-03-13 20:05:20 Emergency [facility] [id number] [facility] 2021-03-13 12:48:28 Emergency [facility] [id number] [facility] 2021-03-13 02:43:51 [place] [facility] [place] [id number] [facility] 2021-03-13 00:27:09 [facility] [id number] 2021-03-12 22:10:36 [place] [facility] [place] [id number] [facility] 2021-03-12 20:04:05 Emergency [facility] [id number] [facility] 2021-03-12 15:25:05 Emergency [facility] [place] [id number] [facility] 2021-03-12 11:43:36 [facility] [id number] [facility] 2021-03-12 07:41:37 Emergency [facility] [id number] [facility] 2021-03-12 05:43:47 [place] [facility] [place] [id number] [facility] 2021-03-12 03:43:41 Emergency [facility] [place] [id number] [facility] 2021-03-12 01:31:27 Emergency [facility] [place] [id number] [facility] 2021-03-12 00:56:44 Emergency X [facility] [id number] [facility] 2021-03-12 00:56:31 [place] [facility] [place] [id number] [facility] 2021-03-11 17:47:02 [place] [facility] [place] [id number] [facility] 2021-03-11 16:27:15 [place] [facility] [place] [id number] [facility] 2021-03-11 12:00:58 Emergency [facility] [place] [id number] [facility] 2021-03-11 10:33:59 Emergency [facility] [id number] [facility] 2021-03-11 01:36:52 Emergency [facility] [id number] [facility] 2021-03-10 23:35:34 Emergency [facility] [id number] [facility] 2021-03-10 19:06:16 Emergency [facility] [id number] [facility] 2021-03-10 12:39:47 Emergency [facility] [id number] [facility] 2021-03-10 06:54:04 Emergency [facility] [id number] [facility] 2021-03-09 13:25:44 Outpatient P [facility] CHRIS [id number] [facility] 2021-03-09 13:08:01 Outpatient P [facility] [id number] [facility] 2021-03-09 12:37:25 Outpatient P [facility] [id number] [facility] 2021-03-09 11:51:20 Outpatient P [facility] [id number] [facility] 2024-08-02 10:16:00 2024-08-02 12:25:00 Emergency X [facility] STEWART JULIO [facility] ERT [id number] [facility] 2024-08-02 10:16:00 2024-08-02 12:25:00 Emergency Aleksandr Stewart [facility] 1..840.114 350.1.13.10 4.2.7.2.686 [id number] [id number] [facility] 2024-07-27 17:21:07 2024-07-27 17:21:07 Outpatient [facility] [id number] Willis Gil 2024-02-28 00:00:00 2024-06-27 06:46:51 Orders Only Doctor Unassigned, Trinity Doctor Unassigned, Trinity [facility] 1..840.114 350.1.13.10 4.2.7.2.686 [id number] 009 [id number] [facility] 2022-08-27 00:00:00 2024-06-27 02:42:04 Orders Only Palak Marrufo Perla [facility] 1.2.840.114 350.1.13.10 4.2.7.2.686 [id number] 044 [id number] [facility] 2022-08-28 00:00:00 2024-06-27 02:42:02 Orders Only Marrufo, Palak Niru, Pal[facility] MED[facility] OFF[facility] 1.2.840.114 350.1.13.10 4.2.7.2.686 [id number] 044 [id number] [facility] 2022-08-29 00:00:00 2024-06-27 02:41:59 Orders Only Marrufo, Palak Niru, Palak [facility] MED[facility] OFF[facility] BU[facility] 1.2.840.114 350.1.13.10 4.2.7.2.686 [id number] 044 [id number] [facility] 2022-09-24 00:00:00 2024-06-27 02:41:25 Orders Only Marrufo, Palak Niru, Palak [facility] MED[facility] OFF[facility] BU[facility] 1.2.840.114 350.1.13.10 4.2.7.2.686 [id number] 044 [id number] [facility] 2022-09-27 00:00:00 2024-06-27 02:41:19 Orders Only Marrufo, Palak Niru, Palak [facility] MED[facility] OFF[facility] BU[facility] 1.2.840.114 350.1.13.10 4.2.7.2.686 [id number] 044 [id number] [facility] 2022-10-02 00:00:00 2024-06-27 02:41:14 Orders Only Marrufo, Palak Marrufo, Palak [facility] MED[facility] OFF[facility] BU[facility] 1.2.840.114 350.1.13.10 4.2.7.2.686 [id number] 044 [id number] [facility] 2022-11-15 00:00:00 2024-06-27 02:40:23 Orders Only Niru, Palak Marrufo, Palak [facility] 1..840.114 350.1.13.10 4.2.7.2.686 [id number] [id number] [facility] 2024-05-19 12:49:00 2024-05-19 16:37:00 Emergency X ANAMARIA GONZALES DONNELL [facility] ERT [id number] [facility] 2024-05-19 12:49:00 2024-05-19 16:37:00 Emergency Anamaria Gonzales [facility] 1..840.114 350.1.13.10 4.2.7.2.686 [id number] 084 [id number] [facility] 2024-04-19 07:55:00 2024-04-19 09:58:00 Emergency X ROSENDO LEVY BRENT [facility] ERT [id number] [facility] 2024-04-19 07:55:00 2024-04-19 09:58:00 Emergency Rosendo Levy [facility] 1..840.114 350.1.13.10 4.2.7.2.686 [id number] 084 [id number] [facility] 2024-03-18 00:00:00 2024-04-18 18:19:35 Patient Secure Msg Doctor Unassigned, Trinity Doctor Unassigned, Trinity [facility] 1..840.114 350.1.13.10 4.2.7.2.686 [id number] 019 [id number] [facility] 2024-04-12 11:54:00 2024-04-12 14:39:00 Emergency T ARAM PARADA [facility] STR [id number] [facility] 2024-04-12 11:54:00 2024-04-12 14:39:00 Emergency Aram Parada [facility] 1.2.84.114 350.1.13.10 4.2.7.2.686 [id number] 014 [id number] [facility] 2024-04-12 09:23:00 2024-04-12 10:42:00 Emergency X MAGGIE HAMILTON [facility] [id number] [facility] 2024-04-12 09:23:00 2024-04-12 10:42:00 Emergency Olamide Garvin Sandra J [facility] 1..114 350.1.13.10 4.2.7.2.686 [id number] 084 [id number] [facility] 2024-03-10 09:43:00 2024-03-13 10:40:00 Inpatient X TAJ DE PAZ [facility]HAEL [facility] [id number] [facility] 2024-03-10 09:43:00 2024-03-13 10:40:00 Hospital Encounter Fidel, Alfredo Manuel, Jose Mao, aTj Milner [facility] 1.84.114 350.1.13.10 4.2.7.2.686 [id number] 094 [id number] [facility] 2024-03-06 00:00:00 2024-03-06 08:40:48 Transition of Care Marlys Odell Antoinette [facility] [place] [place] 1.84.114 350.1.13.10 4.2.7.2.686 [id number] [facility] 2024-03-04 06:46:00 2024-03-05 16:30:00 Outpatient X JOSE MANDUJANO MYRNA [facility] [id number] [facility] 2024-03-04 06:46:00 2024-03-05 16:30:00 Emergency Jesus Muñoz Myrna [facility] 1.2.840.114 350.1.13.10 4.2.7.2.686 [id number] 099 [id number] [facility] 2024-03-03 00:00:00 2024-03-04 15:45:46 Patient Secure MsJas Jackson [facility] ([facility] 1.2.840.114 350.1.13.10 4.2.7.2.686 [id number] 071 [id number] [facility] 2024-03-03 00:00:00 2024-03-03 12:14:14 Telephone Giselle Vance [facility] 1.2.840.114 350.1.13.10 4.2.7.2.686 [id number] 046 [id number] [facility] 2024-02-28 00:00:00 2024-02-28 09:08:41 Transition of Care Tc Renteria Michele A [facility] 1.2.840.114 350.1.13.10 4.2.7.2.686 [id number] [facility] 2024-02-22 09:35:00 2024-02-27 16:59:00 Inpatient X HANY LEE [facility] [id number] [facility] 2024-02-22 09:35:00 2024-02-27 16:59:00 Hospital Encounter Stephanie Lou, Hany Quiroz [facility] 1.2.840.114 350.1.13.10 4.2.7.2.686 [id number] 099 [id number] [facility] 2024-02-27 09:40:00 2024-02-27 10:51:00 Surgery Jas Buenrostro [facility] 1.2.840.114 350.1.13.10 4.2.7.2.686 [id number] 020 [id number] [facility] 2024-02-27 09:22:00 2024-02-27 10:26:00 Anesthesia Event Peter Reece [facility] 1.2.840.114 350.1.13.10 4.2.7.2.686 [id number] 020 [id number] [facility] 2024-02-24 00:00:00 2024-02-24 09:18:09 Telephone Naty Buenrostro [facility] 1.2.840.114 350.1.13.10 4.2.7.2.686 [id number] [facility] 2023-12-23 15:39:53 2023-12-23 15:39:53 Outpatient [facility] [id number] Willis F Jeffery 2023-12-08 14:51:46 2023-12-08 14:51:46 Outpatient [facility] [id number] Willis F Jeffery 2023-09-12 00:00:00 2023-09-12 00:00:00 Outpatient R ROLDAN WALKER [facility] [id number] [facility] 2023-08-26 00:00:00 2023-08-26 00:00:00 Transition of Care Jose R Marlys CARRENOApril OMER MELO 1.2.840.114 350.1.13.10 4.2.7.2.686 [id number] [facility] 2023-08-23 08:31:00 2023-08-24 13:25:00 Outpatient X ROLDAN WALKER [facility] [place] [id number] [facility] 2023-08-04 14:56:23 2023-08-04 14:56:23 Outpatient [facility] [id number] Willis F Jeffery 2023-06-27 14:47:45 2023-06-27 14:47:45 Outpatient [facility] [id number] Willis Miguel Jeffery 2023-05-19 09:04:00 2023-05-19 12:20:00 Emergency X ADERIBIGBE, JUBRIL [facility] ERT [id number] [facility] 2023-05-19 09:04:00 2023-05-19 12:20:00 Emergency Tod Aguilar [facility] 1..114 350.1.13.10 4.2.7.2.686 [id number] [id number] [facility] 2023-04-05 00:00:00 2023-04-05 00:00:00 Patient Secure Msg Prasanna Vargas [facility] PROFESSIO NAL BUILDING 1..114 350.1.13.10 4.2.7.2.686 [id number] [facility] 2023-02-14 12:59:23 2023-02-14 12:59:23 Outpatient [facility] [id number] Williszaira Gil 2023-02-06 18:19:02 2023-02-06 18:19:02 Outpatient [facility] [id number] Willis Rivera Jeffery 2023-01-30 00:00:00 2023-01-30 00:00:00 Outpatient [facility]ILO [facility] [id number] [place] [facility] 2023-01-16 00:00:00 2023-01-16 00:00:00 Transition of Care Marlys Odell 1..114 350.1.13.10 4.2.7.2.686 [id number] [facility] 2023-01-11 21:06:00 2023-01-15 16:00:00 Inpatient X KUN STEELE [facility] DAVID [id number] [facility] 2023-01-11 21:06:00 2023-01-15 16:00:00 Hospital Encounter Miguel Ángel Siddiqui, Kun Beltran [facility] 1..114 350.1.13.10 4.2.7.2.686 [id number] 091 [id number] [facility] 2023-01-12 00:00:00 2023-01-12 00:00:00 Travel 1.2.840.1 67566.1.1 3.104.2.7 .3.286054 .8 1.2.840.114 350.1.13.10 4.2.7.3.698 084.8 [id number] [facility] 2023-01-11 00:00:00 2023-01-11 00:00:00 Travel 1.2.840.1 16459.1.1 3.104.2.7 .3.162713 .8 1.2.840.114 350.1.13.10 4.2.7.3.698 084.8 [id number] [facility] 2022-12-28 00:00:00 2022-12-28 00:00:00 Outpatient ERICKSON_R [facility] [id number] [place] [facility] 2022-12-14 18:37:13 2022-12-14 18:37:13 Outpatient [facility] [id number] Willis Gil 2022-12-13 00:00:00 2022-12-13 00:00:00 Outpatient ERICKSON_R [facility] [id number] [place] 2022-12-12 09:30:00 2022-12-12 09:30:00 Outpatient PRASANNA LOOMIS [facility] [id number] [facility] 2022-11-21 13:08:00 2022-11-21 16:45:00 Emergency MANJU BARRAGAN [facility] ERT [id number] [facility] 2022-11-21 13:08:00 2022-11-21 16:45:00 Emergency Oc Bridges Christopher 1.2.840.1 95563.1.1 3.104.2.7 .3.691064 .8 [id number] [facility] 2022-11-21 00:00:00 2022-11-21 00:00:00 Travel 1.2.840.1 49552.1.1 3.104.2.7 .3.064687 .8 1.2.840.114 350.1.13.10 4.2.7.3.698 084.8 [id number] [facility] 2022-11-18 10:08:00 2022-11-18 10:08:00 Outpatient [facility] [id number] Willis Gil 2022-11-15 09:40:00 2022-11-15 09:40:00 Outpatient JEREMY LABOY CHRISTINE [facility] [id number] [facility] 2022-11-09 15:26:18 2022-11-09 15:26:18 Outpatient [facility] [id number] Willis Gil 2022-11-06 13:00:00 2022-11-06 13:00:00 Outpatient CA ARAUZ [facility] [id number] [facility] 2022-10-29 00:00:00 2022-10-29 00:00:00 Patient Secure g Jeremy Greene 1.2.840.1 47562.1.1 3.104.2.7 .3.317481 .8 [id number] [facility] 2022-10-29 00:00:00 2022-10-29 00:00:00 Patient Secure Msg Prasanna Vargas 1.2.840.1 17695.1.1 3.104.2.7 .3.816348 .8 [id number] [facility] 2022-10-03 00:00:00 2022-10-03 00:00:00 Letter (Out) Roldan Walker [facility] 1..840.114 350.1.13.10 4.2.7.2.686 [id number] 092 [id number] [facility] 2022-10-02 10:00:00 2022-10-02 10:00:00 Outpatient R DESIREE FINNEY [facility] [id number] [facility] 2022-10-01 09:40:00 2022-10-01 09:40:00 Outpatient R REJI GARCIA [facility] [id number] [facility] 2022-09-25 00:00:00 2022-09-25 00:00:00 Telephone [facility] 1.2.840.114 350.1.13.10 4.2.7.2.686 [id number] 059 [id number] [facility] 2022-09-21 09:30:00 2022-09-21 09:30:00 Outpatient R LONNY PUGHSSICA [facility] [id number] [facility] 2022-09-21 00:00:00 2022-09-21 00:00:00 Letter (Out) Lonny PughFormerly [facility] TALYA?[facility] 1.2.840.114 350.1.13.10 4.2.7.2.686 [id number] 092 [id number] [facility] 2022-09-21 00:00:00 2022-09-21 00:00:00 Telephone Lonny PughFormerly [facility] TALYA?[facility] MEDICAL OFFICE BUILDING 1.2.840.114 350.1.13.10 4.2.7.2.686 [id number] 092 [id number] [facility] 2022-09-21 00:00:00 2022-09-21 00:00:00 Telephone Lonny PughFormerly [facility] TALYA?[facility] MEDICAL OFFICE BUILDING 1.2.840.114 350.1.13.10 4.2.7.2.686 [id number] 092 [id number] [facility] 2022-09-14 09:30:00 2022-09-14 09:30:00 Outpatient R LONNY PUGHSSICA [facility] [id number] [facility] 2022-09-12 00:00:00 2022-09-12 00:00:00 [facility] 1.2.840.114 350.1.13.10 4.2.7.2.686 [id number] 092 [id number] [facility] 2022-09-07 11:30:00 2022-09-07 11:30:00 [facility] [id number] [facility] 2022-09-05 08:44:00 2022-09-05 13:15:00 Emergency X KENNEDY HUTCHINS [facility] ERT [id number] [facility] 2022-09-05 08:44:00 2022-09-05 13:15:00 Emergency Kennedy Hutchins [facility] 1.2.840.114 350.1.13.10 4.2.7.2.686 [id number] 084 [id number] [facility] 2022-09-04 00:00:00 2022-09-04 00:00:00 Telephone [facility] 1..840.114 350.1.13.10 4.2.7.2.686 [id number] 092 [id number] [facility] 2022-09-04 00:00:00 2022-09-04 00:00:00 Patient Secure Rad Serra. [facility] PROFESSIO NAL BUILDING 1..840.114 350.1.13.10 4.2.7.2.686 [id number] 059 [id number] [facility] 2022-08-29 09:00:00 2022-08-29 09:00:00 Outpatient DESIREE SALMON [facility] [id number] [facility] 2022-08-14 00:00:00 2022-08-14 00:00:00 Patient Secure Msg Doctor Unassigned, Trinity [facility] TALYA?[facility] 1.84114 350.1.13.10 4.2.7.2.686 [id number] 092 [id number] [facility] 2022-07-31 17:56:00 2022-07-31 20:30:00 Emergency X MANJU NEWELL [facility] ERT [id number] [facility] 2022-07-31 17:56:00 2022-07-31 20:30:00 Emergency [place] 1.114 350.1.13.10 4.2.7.2.686 [id number] 084 [id number] [facility] 2022-07-15 09:46:45 2022-07-15 23:59:00 Outpatient R NATASHA BEBA [facility] [id number] [facility] 2022-07-15 09:46:45 2022-07-15 23:59:00 Hospital Encounter Natasha Beba Marleny [facility] TALYA[facility] OFF[facility] BUILD[facility] 1.84114 350.1.13.10 4.2.7.2.686 [id number] [facility] 2022-07-15 09:46:45 2022-07-15 23:59:00 Hospital Encounter Natasha Beba Marleny [facility] TALYA?[facility] MEDICAL OFFICE BUILDING 1.84114 350.1.13.10 4.2.7.2.686 [id number] [facility] 2022-07-15 09:20:00 2022-07-15 10:29:17 Urgent Care Beba Kaur Unknown, Attending [facility] TALYA?[facility] MEDICAL OFFICE BUILDING 1.84114 350.1.13.10 4.2.7.2.686 [id number] [facility] 2022-07-15 00:00:00 2022-07-15 00:00:00 Orders Only Doctor Unassigned, Trinity [facility] 1.2.840.114 350.1.13.10 4.2.7.2.686 [id number] [facility] 2022-06-23 09:20:00 2022-06-23 10:27:39 Outpatient R PAUL SAMAYOA [facility] [id number] [facility] 2022-06-23 09:20:00 2022-06-23 10:27:39 Urgent Care Paul Samayoa Unknown, Attending [facility] MEDICAL OFFICE BUILDING 1..840.114 350.1.13.10 4.2.7.2.686 [id number] [facility] 2022-06-23 00:00:00 2022-06-23 00:00:00 Orders Only Doctor Unassigned, Trinity [facility] 1.2840.114 350.1.13.10 4.2.7.2.686 [id number] [facility] 2022-06-15 09:40:00 2022-06-15 09:40:00 Outpatient JEREMY LABOY [facility] [id number] [facility] 2022-05-29 08:00:00 2022-05-29 08:00:00 Outpatient KASSANDRA MCKINLEY [facility] [id number] [facility] 2022-05-15 09:20:00 2022-05-15 09:20:00 Outpatient BENNETT MOORE [facility] [id number] [facility] 2022-05-11 09:30:00 2022-05-11 09:30:00 Outpatient KASSANDRA MCKINLEY [facility] [id number] [facility] 2022-05-05 12:26:00 2022-05-05 16:11:00 Emergency X KARON NORTON [facility] ERT [id number] [facility] 2022-05-05 12:26:00 2022-05-05 16:11:00 Emergency Karon Norton [facility] 1..840.114 350.1.13.10 4.2.7.2.686 [id number] [facility] 2022-05-01 00:00:00 2022-05-01 00:00:00 Outpatient PRASANNA LOOMIS VIEN [facility] [id number] [facility] 2022-04-26 08:30:00 2022-04-26 09:59:00 Emergency X OC BRIDGES [facility] ERT [id number] [facility] 2022-04-26 08:30:00 2022-04-26 09:59:00 Emergency Oc Bridges [facility] 1..840.114 350.1.13.10 4.2.7.2.686 [id number] [id number] [facility] 2022-04-25 18:23:00 2022-04-25 21:55:00 Emergency X KENNEDY HUTCHINS [facility] ERT [id number] [facility] 2022-04-25 18:23:00 2022-04-25 21:55:00 Emergency Kennedy Hutchins [facility] 1..840.114 350.1.13.10 4.2.7.2.686 [id number] [id number] [facility] 2022-04-19 10:00:00 2022-04-19 10:00:00 Outpatient JEREMY LABOY [facility] [id number] [facility] 2022-04-12 00:00:00 2022-04-12 00:00:00 Telephone [facility]ass[facility] 1.2.840.114 350.1.13.10 4.2.7.2.686 [id number] 092 [id number] [facility] 2022-04-11 00:00:00 2022-04-11 00:00:00 Telephone Darrion Armstrong [facility] 1.2.840.114 350.1.13.10 4.2.7.2.686 [id number] 092 [id number] [facility] 2022-04-10 00:00:00 2022-04-10 00:00:00 [facility] 1.2.840.114 350.1.13.10 4.2.7.2.686 [id number] 092 [id number] [facility] 2022-04-09 09:30:00 2022-04-09 09:30:00 Office Visit Lonny PughFormerly [facility] TALYA?[facility] 1.2.840.114 350.1.13.10 4.2.7.2.686 [id number] [id number] [facility] 2022-04-09 09:30:00 2022-04-09 09:21:44 Outpatient R LEXY [facility] [id number] [facility] 2022-04-07 13:41:00 2022-04-07 17:49:00 Emergency X OLAMIDE GARVIN [facility] ERT [id number] [facility] 2022-04-07 13:41:00 2022-04-07 17:49:00 Emergency Olamide Garvin [facility] 1.2.840.114 350.1.13.10 4.2.7.2.686 [id number] [id number] [facility] 2022-04-07 00:00:00 2022-04-07 00:00:00 Patient Secure Msg Doctor Unassigned, Trinity [facility] 1.2.84.114 350.1.13.10 4.2.7.2.686 [id number] [id number] [facility] 2022-04-04 00:00:00 2022-04-04 00:00:00 Telephone PughChitraKassandra [facility] MEDICAL OFFICE BUILDING 1.840.114 350.1.13.10 4.2.7.2.686 [id number] [facility] 2022-04-02 10:30:00 2022-04-02 10:30:00 Outpatient KASSANDRA MCKINLEY [facility] [id number] [facility] 2022-03-28 00:00:00 2022-03-28 00:00:00 Patient Secure Msg Doctor Unassigned, [place] [facility] 1.840.114 350.1.13.10 4.2.7.2.686 [id number] [facility] 2022-03-24 07:35:00 2022-03-24 13:11:00 Emergency X KELLEI PIPER [facility] ERT [id number] [facility] 2022-03-24 07:35:00 2022-03-24 13:11:00 Emergency Kellie Piper E [facility] 1.840.114 350.1.13.10 4.2.7.2.686 [id number] [facility] 2022-03-23 10:30:00 2022-03-23 10:30:00 Outpatient KASSANDRA MCKINLEY [facility] [id number] [facility] 2022-03-23 00:00:00 2022-03-23 00:00:00 Telephone Darrion Armstrong [facility] MED[facility] OFFICE BUILD[facility] 1.840.114 350.1.13.10 4.2.7.2.686 [id number] [facility] 2022-03-22 00:00:00 2022-03-22 00:00:00 Telephone Darrion Armstrong [facility] TALYA?[facility] 1..840.114 350.1.13.10 4.2.7.2.686 [id number] [id number] [facility] 2022-03-22 00:00:00 2022-03-22 00:00:00 Refill Darrion Armstrong [facility] TALYA?[facility] 1.840.114 350.1.13.10 4.2.7.2.686 [id number] [id number] [facility] 2022-03-21 00:00:00 2022-03-21 00:00:00 [facility] 1.84.114 350.1.13.10 4.2.7.2.686 [id number] [id number] [facility] 2022-03-15 14:00:00 2022-03-15 14:36:19 Outpatient R [facility] [id number] [facility] 2022-03-15 14:00:00 2022-03-15 14:36:19 [facility] 1..84.114 350.1.13.10 4.2.7.2.686 [id number] [facility] 2022-03-15 08:40:00 2022-03-15 10:47:00 Emergency X LYDIA COLMENARES [facility] ERT [id number] [facility] 2022-03-15 08:40:00 2022-03-15 10:47:00 Emergency Lydia Colmenares [facility] 1.840.114 350.1.13.10 4.2.7.2.686 [id number] [facility] 2022-03-14 10:30:00 2022-03-14 10:30:00 Outpatient PRASANNA LOOMIS [facility] [id number] [facility] 2022-03-11 09:22:00 2022-03-11 12:15:00 Emergency X ANGELICA VIVEROS [facility] ERT [id number] [facility] 2022-03-11 09:22:00 2022-03-11 12:15:00 Emergency Angelica Viveros [facility] 1..840.114 350.1.13.10 4.2.7.2.686 [id number] [id number] [facility] 2022-03-06 08:30:00 2022-03-06 08:30:00 Outpatient KASSANDRA MCKINLEY [facility] [id number] [facility] 2022-03-02 00:00:00 2022-03-02 00:00:00 Telephone Darrion Armstrong [facility]?KARLOSKassandra [facility] 1.2.840.114 350.1.13.10 4.2.7.2.686 [id number] [id number] [facility] 2022-02-28 00:00:00 2022-02-28 00:00:00 Patient Secure Msg Doctor Unassigned, [facility]?KARLOSKassandra [facility] 1.2.840.114 350.1.13.10 4.2.7.2.686 [id number] [id number] [facility] 2022-02-27 09:30:00 2022-02-27 09:49:42 Outpatient KASSANDRA MCKINLEY [facility] [id number] [facility] 2022-02-27 09:30:00 2022-02-27 09:49:42 [facility] 1.2840.114 350.1.13.10 4.2.7.2.686 [id number] [id number] [facility] 2022-02-27 08:00:00 2022-02-27 09:12:17 Office Visit Ca Martinez [facility] 1.2840.114 350.1.13.10 4.2.7.2.686 [id number] [facility] 2022-02-26 11:30:00 2022-02-26 11:30:00 Outpatient R KASSANDRA PUGH [facility] [id number] [facility] 2022-02-21 01:20:00 2022-02-21 03:44:00 Emergency MAGGIE MONTANEZ [facility] ERT [id number] [facility] 2022-02-21 01:20:00 2022-02-21 03:44:00 Emergency Maggie Hamilton [facility] 1.20.114 350.1.13.10 4.2.7.2.686 [id number] [facility] 2022-02-19 00:00:00 2022-02-19 00:00:00 Patient Secure Msg Kendal Zamudio [facility] 1.84.114 350.1.13.10 4.2.7.2.686 [id number] 044 [id number] [facility] 2022-02-19 00:00:00 2022-02-19 00:00:00 Patient Secure Msg Kendal Zamudio [facility] 1.20.114 350.1.13.10 4.2.7.2.686 [id number] [id number] [facility] 2022-02-19 00:00:00 2022-02-19 00:00:00 Patient Secure Msg Santiago Valencia [facility] 1.2.840.114 350.1.13.10 4.2.7.2.686 [id number] [facility] 2022-02-19 00:00:00 2022-02-19 00:00:00 Patient Secure Ross Wong [facility] ORTHO NURSE [facility] MATERNAL & CHILD [facility]ALTH [facility] 1..840.114 350.1.13.10 4.2.7.2.686 [id number] [facility] 2022 11:58:00 2022 15:13:00 Emergency X MAGGIE HAMILTON [facility] ERT [id number] [facility] 2022 11:58:00 2022 15:13:00 Emergency Maggie Hamilton [facility] 1..840.114 350.1.13.10 4.2.7.2.686 [id number] [facility] 2022-02-09 09:00:00 2022-02-09 09:00:00 Outpatient R CRICKET TAYLOR [facility] [id number] [facility] 2022-02-06 10:00:00 2022-02-06 10:00:00 Outpatient CA ARAUZ [facility] [id number] [facility] 2022-02-05 09:45:00 2022-02-05 10:05:00 Nurse Visit Nurse, Filippo [facility] Willie Medrano [facility]?KARLOSKassandra [facility] 1..840.114 350.1.13.10 4.2.7.2.686 [id number] [facility] 2022-02-05 09:20:00 2022-02-05 09:20:00 Outpatient NOELLE KEETANY [facility] [id number] [facility] 2022-01-26 00:00:00 2022-01-26 00:00:00 Case Management Vargas, Prasanna Jm [facility] 1..840.114 350.1.13.10 4.2.7.2.686 [id number] [facility] 2022-01-22 11:00:00 2022-01-22 11:00:00 Outpatient R CA MARTINEZ [facility] [id number] [facility] 2022-01-19 00:00:00 2022-01-19 00:00:00 Patient Secure Msg Doctor Unassigned, Trinity [facility] 1..840.114 350.1.13.10 4.2.7.2.686 [id number] [facility] 2022-01-18 05:17:00 2022-01-18 10:25:00 Emergency X ROSENDO LEVY [facility] ERT [id number] [facility] 2022-01-18 05:17:00 2022-01-18 10:25:00 Emergency Juan Kennedy [facility] 1..840.114 350.1.13.10 4.2.7.2.686 [id number] [facility] 2022-01-15 08:34:00 2022-01-15 10:49:00 Emergency X MAURA COX [facility] ERT [id number] [facility] 2022-01-15 08:34:00 2022-01-15 10:49:00 Emergency Larry Perez Robert Lee [facility] 1..840.114 350.1.13.10 4.2.7.2.686 [id number] [facility] 2022-01-08 18:04:00 2022-01-08 20:09:00 Emergency X HUMBERTO OCHOA [facility] ERT [id number] [facility] 2022-01-08 18:04:00 2022-01-08 20:09:00 Emergency Humberto Ochoa [facility] 1.840.114 350.1.13.10 4.2.7.2.686 [id number] [facility] 2021-12-12 13:30:00 2021-12-12 13:40:21 Outpatient Farzana CARNES [facility] [id number] [facility] 2021-12-12 13:30:00 2021-12-12 13:40:21 Office Visit Prasanna Vargas Jm Carnes [facility] 1.840.114 350.1.13.10 4.2.7.2.686 [id number] [facility] 2021-12-12 13:30:00 2021-12-12 13:40:21 Outpatient R DEYVI [facility] [id number] [facility] 2021-12-12 13:30:00 2021-12-12 13:40:21 Outpatient R DEYVI [facility] [id number] [facility] 2021-12-11 16:15:00 2021-12-11 16:15:00 Outpatient R SUZETTE SANTIAGO [facility] [id number] [facility] 2021-12-05 14:15:00 2021-12-05 14:15:00 Outpatient ROMULO BROWNING [facility] [id number] [facility] 2021-11-28 08:49:00 2021-11-28 11:02:00 Emergency X KARON NORTON [facility] ERT [id number] [facility] 2021-11-28 08:49:00 2021-11-28 11:02:00 Emergency Karon Norton [facility] 1.840.114 350.1.13.10 4.2.7.2.686 [id number] [facility] 2021-11-28 00:00:00 2021-11-28 00:00:00 Patient Secure Msg Cricket Taylor [facility] ORTHO NURSE [facility] & CHILD [facility] 1.2.840.114 350.1.13.10 4.2.7.2.686 [id number] [facility] 2021-11-24 18:14:00 2021-11-24 21:04:00 Emergency X Kaycee MÉNDEZ [facility] ERT [id number] [facility] 2021-11-24 18:14:00 2021-11-24 21:04:00 Emergency Kaycee Méndez [facility] 1.2840.114 350.1.13.10 4.2.7.2.686 [id number] [facility] 2021-11-24 00:00:00 2021-11-24 00:00:00 Telephone Cricket Taylor [facility] ORTHO NURSE [facility] & CHILD [facility] 1.2840.114 350.1.13.10 4.2.7.2.686 [id number] [facility] 2021-11-20 00:00:00 2021-11-20 00:00:00 Patient Secure Msg Kendal Zamudio [facility] 1.284.114 350.1.13.10 4.2.7.2.686 [id number] 044 [id number] [facility] 2021-11-19 00:00:00 2021-11-19 00:00:00 Letter (Out) Leslie Santacruz [facility] 1.20.114 350.1.13.10 4.2.7.2.686 [id number] [facility] 2021-11-18 10:41:40 2021-11-18 23:59:00 Outpatient FLACO KEE [facility] [id number] [facility] 2021-11-18 10:41:40 2021-11-18 23:59:00 Hospital Encounter Noelle Boydtany [facility] 1.2.114 350.1.13.10 4.2.7.2.686 [id number] [facility] 2021-11-18 10:20:00 2021-11-18 10:53:20 Urgent Care Oliver [facility] TALYA?[facility] OFF[facility] BUILD[facility] 1..114 350.1.13.10 4.2.7.2.686 [id number] [facility] 2021-11-09 10:30:00 2021-11-09 10:30:00 Outpatient DESIREE STONE [facility] [id number] [facility] 2021-10-25 13:20:00 2021-10-25 13:20:00 Urgent Care Willie Medrano [facility]YA?[facility] OFF[facility] BUILD[facility] 1.84.114 350.1.13.10 4.2.7.2.686 [id number] [facility] 2021-10-25 13:20:00 2021-10-25 12:47:59 Outpatient R HARDEEP WILLIE [facility] [id number] [facility] 2021-10-25 00:00:00 2021-10-25 00:00:00 Patient Secure Msg Ca Martinez [facility] 1.84.114 350.1.13.10 4.2.7.2.686 [id number] [id number] [facility] 2021-10-25 00:00:00 2021-10-25 00:00:00 Telephone Ca Martinez [facility] 1..114 350.1.13.10 4.2.7.2.686 [id number] [facility] 2021-10-25 00:00:00 2021-10-25 00:00:00 Telephone Provider, Filippo [facility]ILD[facility] 1.2.840.114 350.1.13.10 4.2.7.2.686 [id number] [facility] 2021-10-25 00:00:00 2021-10-25 00:00:00 Telephone Nurse, Filippo Casper [facility] Care [facility] OFF[facility]ILD[facility] 1.2.840.114 350.1.13.10 4.2.7.2.686 [id number] [facility] 2021-10-24 10:15:00 2021-10-24 10:15:00 Outpatient ROMULO BROWNING [facility] [id number] [facility] 2021-10-24 10:15:00 2021-10-24 10:15:00 Outpatient ROMULO BROWNING [facility] [id number] [facility] 2021-10-11 09:30:00 2021-10-11 09:30:00 Outpatient ROMULO BROWNING [facility] [id number] [facility] 2021-10-10 13:30:00 2021-10-10 13:30:00 Outpatient PRASANNA LOOMIS [facility] [id number] [facility] 2021-10-10 13:30:00 2021-10-10 13:30:00 Outpatient PRASANNA LOOMIS [facility] [id number] [facility] 2021-10-10 13:30:00 2021-10-10 13:30:00 Outpatient PRASANNA LOOMIS [facility] [id number] [facility] 2021-10-10 13:30:00 2021-10-10 13:30:00 Outpatient PRASANNA LOOMIS [facility] [id number] [facility] 2021-10-10 13:30:00 2021-10-10 13:30:00 Outpatient PRASANNA LOOMIS [facility] [id number] [facility] 2021-10-10 13:30:00 2021-10-10 13:30:00 Outpatient PRASANNA LOOMIS [facility] [id number] [facility] 2021-10-10 13:30:00 2021-10-10 13:30:00 Outpatient PRASANNA LOOMIS [facility] [id number] [facility] 2021-10-05 00:00:00 2021-10-05 00:00:00 Patient Secure Kendal Medrano [facility]ILD[facility] 1.840.114 350.1.13.10 4.2.7.2.686 [id number] [facility] 2021-10-05 00:00:00 2021-10-05 00:00:00 Patient Secure Msg Zamudio [facility]ILD[facility] 1.284.114 350.1.13.10 4.2.7.2.686 [id number] [facility] 2021-10-04 00:00:00 2021-10-04 00:00:00 Pre Visit Outreach Melia Rodriguez 1.2840.114 350.1.13.10 4.2.7.2.686 [id number] [facility] 2021-09-28 13:30:00 2021-09-28 13:45:00 Office Visit Desiree Mohr [facility] FLACO MELO 1.2840.114 350.1.13.10 4.2.7.2.686 [id number] [facility] 2021-09-28 13:30:00 2021-09-28 13:30:00 Outpatient DESIREE STONE [facility] [id number] [facility] 2021-09-28 13:30:00 2021-09-28 13:30:00 Outpatient Farzana MOHR DESIREE [facility] [id number] [facility] 2021-09-28 00:00:00 2021-09-28 00:00:00 Patient Secure Desiree Zheng [facility] ..840.114 350.1.13.10 4.2.7.2.686 [id number] [facility] 2021-09-27 14:00:00 2021-09-27 14:00:00 Outpatient TETO BRANTLEY [facility] [id number] [facility] 2021-09-27 09:30:00 2021-09-27 09:30:00 Outpatient DANIA RICARDO [facility] [id number] [facility] 2021-09-27 09:30:00 2021-09-27 09:30:00 Outpatient R DANIA PENNINGTON [facility] [id number] [facility] 2021-09-27 09:30:00 2021-09-27 09:30:00 Outpatient Farzana DANIA PENNINGTON [facility] [id number] [facility] 2021-09-26 10:45:00 2021-09-26 10:45:00 Outpatient R CRICKET TAYLOR [facility] [id number] [facility] 2021-09-26 10:45:00 2021-09-26 10:45:00 Outpatient R CRICKET TAYLOR [facility] [id number] [facility] 2021-09-26 00:00:00 2021-09-26 00:00:00 Patient Secure Ca Caraballo [facility] 1..840.114 350.1.13.10 4.2.7.2.686 [id number] [facility] 2021-09-26 00:00:00 2021-09-26 00:00:00 Patient Secure Msg Ca [facility] 1..840.114 350.1.13.10 4.2.7.2.686 [id number] [facility] 2021-09-25 10:20:00 2021-09-25 11:10:42 Urgent Care Flaco Boyd Amanda [facility] MED[facility] OFFICE BUILDING 1.840.114 350.1.13.10 4.2.7.2.686 [id number] [facility] 2021-09-25 10:20:00 2021-09-25 11:10:42 Outpatient R FLACO BOYD [facility] [id number] [facility] 2021-09-25 10:20:00 2021-09-25 10:20:00 Outpatient R NOELLE BOYDTANY [facility] [id number] [facility] 2021-09-25 10:00:00 2021-09-25 10:00:00 Outpatient R PRASANNA VARGAS [facility] [id number] [facility] 2021-09-25 00:00:00 2021-09-25 00:00:00 Telephone Noelle Boydtany [facility] OFF[facility] BUILD[facility] 1.840.114 350.1.13.10 4.2.7.2.686 [id number] [facility] 2021-09-25 00:00:00 2021-09-25 00:00:00 Patient Secure Prasanna Kang [facility] N[facility]ILD[facility] 1..840.114 350.1.13.10 4.2.7.2.686 [id number] [facility] 2021-09-25 00:00:00 2021-09-25 00:00:00 Telephone Cricket Taylor [facility] ORTHO NURSE [facility] 1.2.840.114 350.1.13.10 4.2.7.2.686 [id number] [facility] 2021-09-25 00:00:00 2021-09-25 00:00:00 Telephone Desiree Mohr [facility] 1.2.840.114 350.1.13.10 4.2.7.2.686 [id number] [facility] 2021-09-15 00:00:00 2021-09-15 00:00:00 Patient Secure Msg Kendal Zamudio [facility] MEDICAL OFFICE BUILD[facility] 1.2.840.114 350.1.13.10 4.2.7.2.686 [id number] [facility] 2021-09-15 00:00:00 2021-09-15 00:00:00 Patient Secure Msg Kendal Zamudio [facility] MEDICAL OFFICE BUILD[facility] 1.2.840.114 350.1.13.10 4.2.7.2.686 [id number] [facility] 2021-09-15 00:00:00 2021-09-15 00:00:00 Patient Secure Msg Kendal Zamud[facility] MED[facility] OFF[facility] BUILD[facility] 1.2.840.114 350.1.13.10 4.2.7.2.686 [id number] [facility] 2021-09-14 00:00:00 2021-09-14 00:00:00 Patient Secure Msg Víctorkassandra Ca [facility] MEDICAL OFFICE BUILD[facility] 1.2.840.114 350.1.13.10 4.2.7.2.686 [id number] [id number] [facility] 2021-09-14 00:00:00 2021-09-14 00:00:00 Patient Secure Msg Doctor Unassigned, Trinity [facility] 1.114 350.1.13.10 4.2.7.2.686 [id number] [facility] 2021-09-12 10:30:00 2021-09-12 10:30:00 Outpatient DESIREE STONE [facility] [id number] [facility] 2021-09-12 10:30:00 2021-09-12 10:30:00 Outpatient DESIREE STONE [facility] [id number] [facility] 2021-09-12 00:00:00 2021-09-12 00:00:00 Patient Secure Msg Taj Dsouza [facility] 1.114 350.1.13.10 4.2.7.2.686 [id number] [facility] 2021-09-12 00:00:00 2021-09-12 00:00:00 Orders Only Doctor Unassigned, Trinity [facility] 1.114 350.1.13.10 4.2.7.2.686 [id number] [facility] 2021-09-12 00:00:00 2021-09-12 00:00:00 Patient Secure Msg Ca Martinez [facility] 1.114 350.1.13.10 4.2.7.2.686 [id number] [id number] [facility] 2021-09-05 00:00:00 2021-09-05 00:00:00 Patient Secure Msg Ca [facility] MED[facility] OFF[facility] BUILD[facility] 1.114 350.1.13.10 4.2.7.2.686 [id number] [id number] [facility] 2021-09-05 00:00:00 2021-09-05 00:00:00 Patient Secure Msg Doctor Unassigned, Trinity [facility] 1.2840.114 350.1.13.10 4.2.7.2.686 [id number] [facility] 2021-09-05 00:00:00 2021-09-05 00:00:00 Patient Secure Msg Doctor Unassigned, Trinity [facility] 1.20.114 350.1.13.10 4.2.7.2.686 [id number] [facility] 2021-09-04 00:00:00 2021-09-04 00:00:00 Patient Secure Msg Juan Ca [facility] MEDICAL OFFICE BUILDING 1.114 350.1.13.10 4.2.7.2.686 [id number] [id number] [facility] 2021-08-28 00:00:00 2021-08-28 00:00:00 Patient Secure Msg Harsh Charles [facility] 1.114 350.1.13.10 4.2.7.2.686 [id number] [facility] 2021-08-25 00:00:00 2021-08-25 00:00:00 Telephone Dania Pennington [facility] MEDICAL OFFICE BUILDING 1..114 350.1.13.10 4.2.7.2.686 [id number] [facility] 2021-08-25 00:00:00 2021-08-25 00:00:00 Patient Secure Msg Juan Ca [facility] MEDICAL OFFICE BUILDING 1..114 350.1.13.10 4.2.7.2.686 [id number] [id number] [facility] 2021-08-24 00:00:00 2021-08-24 00:00:00 Telephone Ca Martinez [facility] 1.2840.114 350.1.13.10 4.2.7.2.686 [id number] [facility] 2021-08-24 00:00:00 2021-08-24 00:00:00 Patient Secure Msg Ca Martinez [facility] MEDICAL OFFICE BUILDING 1.2840.114 350.1.13.10 4.2.7.2.686 [id number] [id number] [facility] 2021-08-23 00:00:00 2021-08-23 00:00:00 Patient Secure Msg Ca Martinez [facility] MED[facility] OFFICE BUILDING 1.2840.114 350.1.13.10 4.2.7.2.686 [id number] [id number] [facility] 2021-08-23 00:00:00 2021-08-23 00:00:00 Telephone Ca Martinez [facility] 1.2840.114 350.1.13.10 4.2.7.2.686 [id number] [id number] [facility] 2021-08-22 00:00:00 2021-08-22 00:00:00 Telephone Ca Martinez [facility] MEDICAL OFF[facility] BUILDING 1.2840.114 350.1.13.10 4.2.7.2.686 [id number] [facility] 2021-08-22 00:00:00 2021-08-22 00:00:00 Patient Secure Msg Hallie Wilkinson [facility] MEDICAL OFF[facility] BUILDING 1.2840.114 350.1.13.10 4.2.7.2.686 [id number] [id number] [facility] 2021-08-18 00:00:00 2021-08-18 00:00:00 Telephone Ca Martinez [facility] MEDICAL OFFICE BUILDING 1.2840.114 350.1.13.10 4.2.7.2.686 [id number] [id number] [facility] 2021-08-17 09:00:00 2021-08-17 09:00:00 Outpatient DESIREE STONE [facility] [id number] [facility] 2021-08-17 09:00:00 2021-08-17 09:00:00 Outpatient DESIREE STONE [facility] [id number] [facility] 2021-08-17 00:00:00 2021-08-17 00:00:00 Patient Secure Msg Prasanna Vargas [facility] NAL BUILDING 1..840.114 350.1.13.10 4.2.7.2.686 [id number] [facility] 2021-08-17 00:00:00 2021-08-17 00:00:00 Patient Secure Msg Ca Martinez [facility] MED[facility] OFFICE BUILDING 1.84.114 350.1.13.10 4.2.7.2.686 [id number] [id number] [facility] 2021-08-17 00:00:00 2021-08-17 00:00:00 Patient Secure Msg Ca Martinez [facility] MEDICAL OFFICE BUILDING 1.84.114 350.1.13.10 4.2.7.2.686 [id number] [id number] [facility] 2021-08-16 00:00:00 2021-08-16 00:00:00 Patient Secure Msg Ca Martinez [facility] T[facility]YA?[facility] 1.2.840.114 350.1.13.10 4.2.7.2.686 [id number] [facility] 2021-08-16 00:00:00 2021-08-16 00:00:00 Patient Secure Msg Doctor Unassigned, [facility] 1.2.840.114 350.1.13.10 4.2.7.2.686 [id number] [facility] 2021-08-16 00:00:00 2021-08-16 00:00:00 Patient Secure Msg [facility] 1.2.840.114 350.1.13.10 4.2.7.2.686 [id number] [facility] 2021-08-16 00:00:00 2021-08-16 00:00:00 Patient Secure Msg [facility] MED[facility] OFF[facility] BUILD[facility] 1.2.840.114 350.1.13.10 4.2.7.2.686 [id number] [facility] 2021-08-15 15:30:00 2021-08-15 16:16:42 Office Visit Adán Kim [facility] T[facility]YA[facility] 1.2.840.114 350.1.13.10 4.2.7.2.686 [id number] [facility] 2021-08-15 15:30:00 2021-08-15 16:16:42 Outpatient ADÁN DIEGO [facility] [id number] [facility] 2021-08-15 15:30:00 2021-08-15 15:30:00 Outpatient ADÁN DIEGO [facility] [id number] [facility] 2021-08-15 15:30:00 2021-08-15 15:30:00 Outpatient ADÁN DIEGO [facility] [id number] [facility] 2021-08-15 15:30:00 2021-08-15 15:30:00 Outpatient ADÁN DIEGO [facility] [id number] [facility] 2021-08-15 09:27:00 2021-08-15 12:26:00 Emergency MAURA DALE [facility] ERT [id number] [facility] 2021-08-15 09:27:00 2021-08-15 12:26:00 Emergency Maura Cox [facility] 1.2.840.114 350.1.13.10 4.2.7.2.686 [id number] [facility] 2021-08-15 09:27:00 2021-08-15 12:26:00 Emergency MAURA DALE [facility] ERT [id number] [facility] 2021-08-15 00:00:00 2021-08-15 00:00:00 Patient Secure Msg Doctor Unassigned, [facility] 1.2.840.114 350.1.13.10 4.2.7.2.686 [id number] [facility] 2021-08-14 13:25:00 2021-08-14 23:59:00 Outpatient CA ARAUZ [facility] [id number] [facility] 2021-08-14 13:25:00 2021-08-14 23:59:00 Outpatient CA ARAUZ [facility] [id number] [facility] 2021-08-14 13:25:00 2021-08-14 13:25:00 Outpatient CA ARAUZ [facility] [id number] [facility] 2021-08-14 12:19:07 2021-08-14 13:24:00 Outpatient CA ARAUZ [facility] [id number] [facility] 2021-08-14 12:19:07 2021-08-14 13:24:00 Outpatient R CA MARTINEZ [facility] [id number] [facility] 2021-08-14 12:30:00 2021-08-14 13:01:24 Log Inspector Visit Lab, Ca [facility] 1.20.114 350.1.13.10 4.2.7.2.686 [id number] [facility] 2021-08-14 12:30:00 2021-08-14 12:45:00 Log Inspector Visit Lab, Ca [facility] MED[facility] OFF[facility] BUILD[facility] 1.2.114 350.1.13.10 4.2.7.2.686 [id number] [facility] 2021-08-14 11:30:00 2021-08-14 12:31:12 Office Visit Ca Martinez [facility] 1..114 350.1.13.10 4.2.7.2.686 [id number] 044 [id number] [facility] 2021-08-14 11:30:00 2021-08-14 12:31:12 Outpatient R CA MARTINEZ [facility] [id number] [facility] 2021-08-14 00:00:00 2021-08-14 00:00:00 Patient Secure [facility]sg [facility] BU[facility] 1..114 350.1.13.10 4.2.7.2.686 [id number] 044 [id number] [facility] 2021-08-14 00:00:00 2021-08-14 00:00:00 Patient Secure Msg Ca Martinez [facility] BU[facility] 1.20.114 350.1.13.10 4.2.7.2.686 [id number] 044 [id number] [facility] 2021-08-09 14:45:00 2021-08-09 14:45:00 Outpatient R ADÁN KIM [facility] [id number] [facility] 2021-08-09 00:00:00 2021-08-09 00:00:00 Telephone Ca Martinez [facility] TALYA?[facility] 1.840.114 350.1.13.10 4.2.7.2.686 [id number] 044 [id number] [facility] 2021-08-08 11:30:00 2021-08-08 23:59:00 Outpatient R CA MARTINEZ [facility] [id number] [facility] 2021-08-08 11:30:00 2021-08-08 23:59:00 Hospital Encounter Juan Ca [facility] TALYA?[facility] 1.840.114 350.1.13.10 4.2.7.2.686 [id number] [facility] 2021-08-08 11:15:00 2021-08-08 11:15:00 Outpatient R CA MARTINEZ [facility] [id number] [facility] 2021-08-08 11:00:00 2021-08-08 11:00:00 Outpatient R CA MARTINEZ [facility] [id number] [facility] 2021-08-08 00:00:00 2021-08-08 00:00:00 Patient Secure Msg Doctor Unassigned, [facility] .840.114 350.1.13.10 4.2.7.2.686 [id number] [facility] 2021-08-07 09:30:00 2021-08-07 10:23:21 Office Visit Ca Martinez [facility] TALYA?[facility] 1.840.114 350.1.13.10 4.2.7.2.686 [id number] 044 [id number] [facility] 2021-08-07 09:30:00 2021-08-07 10:23:21 Outpatient R CA MARTINEZ [facility] [id number] [facility] 2021-08-07 09:30:00 2021-08-07 09:30:00 Outpatient R CA MARTINEZ [facility] [id number] [facility] 2021-08-07 00:00:00 2021-08-07 00:00:00 Patient Secure Msg Ca Martinez [facility] TALYA?[facility] BU[facility] 1..840.114 350.1.13.10 4.2.7.2.686 [id number] 044 [id number] [facility] 2021-08-07 00:00:00 2021-08-07 00:00:00 Patient Secure Msg Ca Martinez [facility] TALYA?[facility] BU[facility] 1..840.114 350.1.13.10 4.2.7.2.686 [id number] 044 [id number] [facility] 2021-08-07 00:00:00 2021-08-07 00:00:00 Patient Secure Msg Desiree Mohr [facility] 1..840.114 350.1.13.10 4.2.7.2.686 [id number] [facility] 2021-08-04 10:00:00 2021-08-04 10:00:00 Outpatient R PETRA RENO [facility] [id number] [facility] 2021-08-04 00:00:00 2021-08-04 00:00:00 Patient Secure Msg Richelle [facility] TALYA?[facility] MED[facility] OFF[facility] BUILD[facility] 1..840.114 350.1.13.10 4.2.7.2.686 [id number] 044 [id number] [facility] 2021-08-03 11:00:00 2021-08-03 12:48:43 Office Visit EmilyJuan [facility]. ..840.114 350.1.13.10 4.2.7.2.686 [id number] [facility] 2021-08-03 11:00:00 2021-08-03 12:48:43 Outpatient R JUAN DIAZ [facility] [id number] [facility] 2021-08-03 11:00:00 2021-08-03 11:00:00 Outpatient R EMILY [facility] [id number] [facility] 2021-08-03 00:00:00 2021-08-03 00:00:00 Patient Secure Desiree Zheng [facility] ..840.114 350.1.13.10 4.2.7.2.686 [id number] [facility] 2021-08-02 00:00:00 2021-08-02 00:00:00 Telephone Ca [facility] 1..840.114 350.1.13.10 4.2.7.2.686 [id number] 044 [id number] [facility] 2021-07-21 08:00:00 2021-07-21 08:52:53 Outpatient DARRION QUIROZ HOWARD [facility] [id number] [facility] 2021-07-17 11:30:00 2021-07-17 11:30:00 Outpatient R CA MARTINEZ [facility] [id number] [facility] 2021-07-17 00:00:00 2021-07-17 00:00:00 Patient Secure [facility] 1..840.114 350.1.13.10 4.2.7.2.686 [id number] 044 [id number] [facility] 2021-06-19 00:00:00 2021-06-19 00:00:00 Telephone Ca Martinez [facility] TALYA?[facility] OFF[facility] 1..840.114 350.1.13.10 4.2.7.2.686 [id number] 044 [id number] [facility] 2021-06-09 00:00:00 2021-06-09 00:00:00 Telephone [facility] 1..840.114 350.1.13.10 4.2.7.2.686 [id number] [facility] 2021-06-06 11:15:00 2021-06-06 11:15:00 Outpatient R TETO CARNES [facility] [id number] [facility] 2021-06-06 11:15:00 2021-06-06 11:15:00 [facility] [id number] [facility] 2021-06-02 15:45:00 2021-06-02 15:45:00 Outpatient R CLAUDETTE EVANS [facility] [id number] [facility] 2021-05-31 10:00:00 2021-05-31 10:46:31 Outpatient R CA MARTINEZ [facility] [id number] [facility] 2021-05-31 10:00:00 2021-05-31 10:46:31 Office Visit VíctorCa cannon [facility] TALYA?[facility] MED[facility] OFF[facility] BUILD[facility] 1..840.114 350.1.13.10 4.2.7.2.686 [id number] 044 [id number] [facility] 2021-05-31 10:00:00 2021-05-31 10:46:31 Outpatient R CA MARTINEZ [facility] [id number] [facility] 2021-05-31 00:00:00 2021-05-31 00:00:00 Orders Only Doctor Unassigned, [facility] 1.2840.114 350.1.13.10 4.2.7.2.686 [id number] [facility] 2021-05-26 00:00:00 2021-05-26 00:00:00 Telephone Yaneli Skylar A [facility] TALYA?[facility] BUILD[facility] 1.2840.114 350.1.13.10 4.2.7.2.686 [id number] 044 [id number] [facility] 2021-05-26 00:00:00 2021-05-26 00:00:00 Patient Secure Msg Khang Prasanna Jm [facility] NAL BUILDING 1.2840.114 350.1.13.10 4.2.7.2.686 [id number] [facility] 2021-05-25 14:00:00 2021-05-25 14:30:00 Telemedici ne Visit Farzad Grovesliignacio Cannon [facility] TALYA?[facility] MED[facility] OFF[facility] BUILD[facility] 1.284.114 350.1.13.10 4.2.7.2.686 [id number] 044 [id number] [facility] 2021-05-25 14:00:00 2021-05-25 14:00:00 Outpatient R SKYLAR GROVES [facility] [id number] [facility] 2021-05-25 14:00:00 2021-05-25 14:00:00 Outpatient R SKYLAR GROVES [facility] [id number] [facility] 2021-05-25 00:00:00 2021-05-25 00:00:00 Patient Secure Msg Skylar Groves [facility] TALYA?[facility] MED[facility] BUILD[facility] 1.2840.114 350.1.13.10 4.2.7.2.686 [id number] 044 [id number] [facility] 2021-05-25 00:00:00 2021-05-25 00:00:00 Patient Secure Msg Skylar Groves A [facility] TALYA?[facility] MED[facility] OFF[facility] BUILD[facility] 1.2.840.114 350.1.13.10 4.2.7.2.686 [id number] 044 [id number] [facility] 2021-05-24 00:00:00 2021-05-24 00:00:00 Telephone Rad Serra K.HPilar [facility] BUILDING 1..840.114 350.1.13.10 4.2.7.2.686 [id number] 059 [id number] [facility] 2021-05-24 00:00:00 2021-05-24 00:00:00 Patient Secure Msg Delroy Sendzohra [facility]. [facility] BUILDING 1..840.114 350.1.13.10 4.2.7.2.686 [id number] 059 [id number] [facility] 2021-05-24 00:00:00 2021-05-24 00:00:00 Patient Secure Msg Claudette Evans A [facility] TALYA?[facility] MED[facility] OFF[facility] BUILD[facility] 1..840.114 350.1.13.10 4.2.7.2.686 [id number] 044 [id number] [facility] 2021-05-23 10:00:00 2021-05-23 10:00:00 Outpatient R [facility] [id number] [facility] 2021-05-23 10:00:00 2021-05-23 10:00:00 Outpatient R [facility] [id number] [facility] 2021-05-23 00:00:00 2021-05-23 00:00:00 Patient Secure Msg Claudette Evans A [facility] TALYA?[facility] OFF[facility] BUILD[facility] 1.2.840.114 350.1.13.10 4.2.7.2.686 [id number] [id number] [facility] 2021-05-16 09:00:00 2021-05-16 09:00:00 Outpatient TETO BRANTLEY [facility] [id number] [facility] 2021-05-12 00:00:00 2021-05-12 00:00:00 Orders Only Doctor Unassigned, [facility] 1.2.840.114 350.1.13.10 4.2.7.2.686 [id number] [facility] 2021-05-10 13:00:00 2021-05-10 13:00:00 Outpatient CARMELINA CEDILLOANITRA [facility] [id number] [facility] 2021-05-10 13:00:00 2021-05-10 13:00:00 [facility] [id number] [facility] 2021-05-09 00:00:00 2021-05-09 00:00:00 Telephone Prasanna Vargas [facility] 1.2.840.114 350.1.13.10 4.2.7.2.686 [id number] [facility] 2021-05-09 00:00:00 2021-05-09 00:00:00 Patient Secure Rad Wells [facility] 1.2.840.114 350.1.13.10 4.2.7.2.686 [id number] 059 [id number] [facility] 2021-05-08 16:00:00 2021-05-08 16:00:00 Outpatient JE CRABTREE [facility] [id number] [facility] 2021-05-08 16:00:00 2021-05-08 16:00:00 Outpatient JE CRABTREE [facility] [id number] [facility] 2021-05-08 00:00:00 2021-05-08 00:00:00 Patient Secure g Rad Serra. [facility] BUILDING 1.2.840.114 350.1.13.10 4.2.7.2.686 [id number] 059 [id number] [facility] 2021-05-08 00:00:00 2021-05-08 00:00:00 Patient Secure Msg Rad Serra [facility] NAL BUILDING 1.2.840.114 350.1.13.10 4.2.7.2.686 [id number] 059 [id number] [facility] 2021-05-04 00:00:00 2021-05-04 00:00:00 Patient Secure Rad WellsPilar [facility] BUILD[facility] 1.2.840.114 350.1.13.10 4.2.7.2.686 [id number] 059 [id number] [facility] 2021-05-04 00:00:00 2021-05-04 00:00:00 Patient Secure Reji San [facility] BUILD[facility] 1.2.840.114 350.1.13.10 4.2.7.2.686 [id number] 059 [id number] [facility] 2021-05-03 11:15:36 2021-05-03 23:59:00 Outpatient R REJI GARCIA [facility] [id number] [facility] 2021-05-03 11:15:36 2021-05-03 23:59:00 Hospital Encounter Reji Garcia [facility] BUILD[facility] 1.2.840.114 350.1.13.10 4.2.7.2.686 [id number] [facility] 2021-05-03 00:00:00 2021-05-03 00:00:00 Telephone Claudette [facility] MED[facility] OFF[facility] BUILDING 1.2840.114 350.1.13.10 4.2.7.2.686 [id number] 044 [id number] [facility] 2021-05-02 00:00:00 2021-05-02 00:00:00 Telephone Rad Serra [facility] BUILD[facility] 1.2840.114 350.1.13.10 4.2.7.2.686 [id number] 059 [id number] [facility] 2021-05-02 00:00:00 2021-05-02 00:00:00 Patient Secure Msg Claudette Evans [facility] MAURICE BABIN?[facility] MEDICAL OFFICE BUILDING 1.2840.114 350.1.13.10 4.2.7.2.686 [id number] 044 [id number] [facility] 2021-05-02 00:00:00 2021-05-02 00:00:00 Telephone Claudette Evans [facility] MA[facility]ICE BABIN?[facility] MEDICAL OFFICE BUILDING 1.2840.114 350.1.13.10 4.2.7.2.686 [id number] 044 [id number] [facility] 2021-05-02 00:00:00 2021-05-02 00:00:00 Patient Secure Msg SerraRad [facility] BUILD[facility] 1.2840.114 350.1.13.10 4.2.7.2.686 [id number] 059 [id number] [facility] 2021-05-02 00:00:00 2021-05-02 00:00:00 Patient Secure Msg Claudette Evans [facility] BUILD[facility] 1.2840.114 350.1.13.10 4.2.7.2.686 [id number] 044 [id number] [facility] 2021-04-28 00:00:00 2021-04-28 00:00:00 Patient Secure MsClaudette Corea A [facility] 1.2.840.114 350.1.13.10 4.2.7.2.686 [id number] 044 [id number] [facility] 2021-04-27 14:24:00 2021-04-27 15:49:00 Emergency X MAGGIE HAMILTON [facility] ERT [id number] [facility] 2021-04-27 14:24:00 2021-04-27 15:49:00 Emergency Maggie Hamilton [facility] 1..840.114 350.1.13.10 4.2.7.2.686 [id number] [facility] 2021-04-27 11:15:00 2021-04-27 11:30:00 Laboratory Only Only, Ang Db Test Unknown, Attending Thony Johnson [facility] 1.2.840.114 350.1.13.10 4.2.7.2.686 [id number] [facility] 2021-04-27 11:15:00 2021-04-27 11:15:00 Outpatient THONY LUIS [facility] [id number] [facility] 2021-04-27 00:00:00 2021-04-27 00:00:00 Orders Only Doctor Unassigned, [facility] 1.840.114 350.1.13.10 4.2.7.2.686 [id number] [facility] 2021-04-20 15:00:00 2021-04-20 15:00:00 Outpatient SCOTT RENEE [facility] [id number] [facility] 2021-04-13 00:00:00 2021-04-13 00:00:00 Patient Secure Msg Claudette Evans [facility] TALYA?[facility] 1.2.840.114 350.1.13.10 4.2.7.2.686 [id number] 044 [id number] [facility] 2021-04-12 00:00:00 2021-04-12 00:00:00 Telephone Claudette Evans [facility] TALYA?[facility] 1.2.840.114 350.1.13.10 4.2.7.2.686 [id number] 044 [id number] [facility] 2021-03-27 00:00:00 2021-03-27 00:00:00 Telephone Prasanna Vargas Jm [facility] BUILD[facility] 1.2.840.114 350.1.13.10 4.2.7.2.686 [id number] [facility] 2021-03-24 00:00:00 2021-03-24 00:00:00 Patient Secure Msg Doctor Unassigned, [facility] 1.2.840.114 350.1.13.10 4.2.7.2.686 [id number] [facility] 2021-03-23 13:30:00 2021-03-23 13:30:00 Outpatient PINO AGUIAR [facility] [id number] [facility] 2021-03-23 13:30:00 2021-03-23 13:30:00 Outpatient PINO AGUIAR [facility] [id number] [facility] 2021-03-22 09:20:00 2021-03-22 09:20:00 Outpatient ADITYA FRAUSTO STRAHIL [facility] [id number] [facility] 2021-03-22 09:20:00 2021-03-22 09:20:00 Outpatient ADITYA FRAUSTO STRAHIL [facility] [id number] [facility] 2021-03-20 00:00:00 2021-03-20 00:00:00 Outpatient R CLAUDETTE EVANS [facility] [id number] [facility] 2021-03-18 00:00:00 2021-03-18 00:00:00 Case Management Claudette Evans [facility] BUILD[facility] 1.2.840.114 350.1.13.10 4.2.7.2.686 [id number] 044 [id number] [facility] 2021-03-16 11:16:07 2021-03-16 11:31:07 Log Inspector Visit Lab, Filippo Shirley Claudette Evans [facility] MED[facility] OFFICE BUILD[facility] 1..840.114 350.1.13.10 4.2.7.2.686 [id number] [facility] 2021-03-16 11:30:00 2021-03-16 11:30:00 Outpatient R CLAUDETTE EVANS [facility] [id number] [facility] 2021-03-16 11:00:00 2021-03-16 11:14:45 Outpatient R CLAUDETTE EVANS [facility] [id number] [facility] 2021-03-16 10:00:58 2021-03-16 11:14:45 Office Visit Claudette Evans [facility] MAURICE BABIN?[facility] MEDICAL OFFICE BUILDING 1..840.114 350.1.13.10 4.2.7.2.686 [id number] 044 [id number] [facility] 2021-03-16 00:00:00 2021-03-16 00:00:00 Patient Secure Msg Claudette Evans [facility] MA[facility]ICE BABIN?[facility] MEDICAL OFFICE BUILDING 1..840.114 350.1.13.10 4.2.7.2.686 [id number] 044 [id number] [facility] 2021-03-02 16:15:00 2021-03-02 16:15:00 Outpatient R CRISTINACARMELINA SINGHTAINAANITRA [facility] [id number] [facility] 2021-02-28 18:30:00 2021-02-28 18:30:00 Outpatient R WILLIE MEDRANO [facility] [id number] [facility] 2021-02-28 00:00:00 2021-02-28 00:00:00 Telephone Claudette Evans [facility]alya[facility] 1.2.840.114 350.1.13.10 4.2.7.2.686 [id number] 044 [id number] [facility] 2021-02-27 09:00:00 2021-02-27 09:00:00 Outpatient Farzana HAMMONDAMELIA [facility] [id number] [facility] 2021-02-23 00:00:00 2021-02-23 00:00:00 Telephone Claudette Evans [facility] [place] Medical Office Building 1.2.840.114 350.1.13.10 4.2.7.2.686 [id number] 044 [id number] [facility] 2021-02-10 18:12:00 2021-02-10 23:39:00 Emergency Kaycee Méndez [facility] 1.2.840.114 350.1.13.10 4.2.7.2.686 [id number] 084 [id number] [facility] 2021-02-10 00:00:00 2021-02-10 00:00:00 Patient Secure Msg Claudette Evans [facility] TALYA?[facility] MEDICAL OFFICE BUILDING 1.2.840.114 350.1.13.10 4.2.7.2.686 [id number] 044 [id number] [facility] 2021-02-10 00:00:00 2021-02-10 00:00:00 Patient Secure Msg Claudette Evans [facility] ANGLEROBERTA BABIN?[facility] MEDICAL OFFICE BUILDING 1.2.840.114 350.1.13.10 4.2.7.2.686 [id number] 044 [id number] [facility] 2021-02-10 00:00:00 2021-02-10 00:00:00 Patient Secure Msg Branden Evansful Kassandra [facility] ANGLEROBERTA BABIN[facility] MEDICAL OFFICE BUILDING 1.2.840.114 350.1.13.10 4.2.7.2.686 [id number] 044 [id number] [facility] 2021-02-10 00:00:00 2021-02-10 00:00:00 Patient Secure Claudette Hinds [facility] MA[facility]ICE ABBIN?[facility] MEDICAL OFFICE BUILDING 1.2.840.114 350.1.13.10 4.2.7.2.686 [id number] 044 [id number] [facility] 2021-02-09 13:40:00 2021-02-09 23:59:00 Hospital Encounter Claudette Evans [facility] [place] Dave?[facility] Medical Office Building 1.2.840.114 350.1.13.10 4.2.7.2.686 [id number] [facility] 2021-02-09 13:49:05 2021-02-09 14:04:05 Log Inspector Visit Lab, Ang - Db Claudette Evans [facility] [place] Dave?[facility] Medical Office Building 1.2.840.114 350.1.13.10 4.2.7.2.686 [id number] [facility] 2021-02-09 12:23:13 2021-02-09 13:47:12 Office Visit Claudette Evans [facility] Maurice Fofanae?[facility] Medical Office Building 1.2.840.114 350.1.13.10 4.2.7.2.686 [id number] [id number] [facility] 2021-02-09 13:00:00 2021-02-09 13:00:00 Outpatient R CLAUDETTE EVANS [facility] [id number] [facility] 2021-02-09 00:00:00 2021-02-09 00:00:00 Patient Secure Msg Doctor Unassigned, [facility] 1.2.840.114 350.1.13.10 4.2.7.2.686 [id number] [facility] 2021-02-08 10:20:00 2021-02-08 10:20:00 Outpatient R ADITYA MEEKS STRAHIL [facility] [id number] [facility] 2021-02-07 00:00:00 2021-02-07 00:00:00 Patient Secure Msg Claudette Evans [facility] MED[facility] OFFICE BUILD[facility] 1.2.840.114 350.1.13.10 4.2.7.2.686 [id number] [facility] 2021-02-02 10:30:00 2021-02-02 10:30:00 Outpatient SKYLAR CEBALLOS [facility] [id number] [facility] 2021-02-02 00:00:00 2021-02-02 00:00:00 Telephone Claudette Evans [facility] 1.2.840.114 350.1.13.10 4.2.7.2.686 [id number] [facility] 2021-02-01 08:30:00 2021-02-01 08:30:00 Outpatient SKYLAR CEBALLOS [facility] [id number] [facility] 2021-01-31 18:44:04 2021-01-31 19:41:26 Urgent Care [facility] Medical Office Building 1.2.840.114 350.1.13.10 4.2.7.2.686 [id number] [facility] 2021-01-31 19:00:00 2021-01-31 19:00:00 Outpatient FLACO KEE [facility] [id number] [facility] 2021-01-31 00:00:00 2021-01-31 00:00:00 Telephone Claudette Evans [facility] Medical Office Building 1.2.840.114 350.1.13.10 4.2.7.2.686 [id number] [facility] 2021-01-31 00:00:00 2021-01-31 00:00:00 Patient Secure Msg Claudette Evans [facility] 1..840.114 350.1.13.10 4.2.7.2.686 [id number] [facility] 2021-01-30 00:00:00 2021-01-30 00:00:00 Telephone [facility] [address] n[facility] 1..840.114 350.1.13.10 4.2.7.2.686 [id number] [facility] 2021-01-30 00:00:00 2021-01-30 00:00:00 Patient Secure Msg [facility] 1..840.114 350.1.13.10 4.2.7.2.686 [id number] [facility] 2021-01-26 14:00:00 2021-01-26 14:00:00 Outpatient R RAD SERRA [facility] [id number] [facility] 2021-01-26 00:00:00 2021-01-26 00:00:00 Patient Secure Msg Skylar Groves [facility] 1..840.114 350.1.13.10 4.2.7.2.686 [id number] [facility] 2021-01-25 15:00:00 2021-01-25 15:00:00 Outpatient R [facility] [id number] [facility] 2021-01-21 00:00:00 2021-01-21 00:00:00 Patient Secure Msg Skylar Groves [facility] 1..840.114 350.1.13.10 4.2.7.2.686 [id number] [facility] 2021-01-20 16:51:22 2021-01-20 17:12:41 Telemedici ne [facility] [facility] 1..840.114 350.1.13.10 4.2.7.2.686 [id number] [facility] 2021-01-20 16:30:00 2021-01-20 16:30:00 Outpatient R SKYLAR GROVES [facility] [id number] [facility] 2021-01-19 10:15:00 2021-01-19 10:15:00 Outpatient R KAYLEY GARCÍA [facility] [id number] [facility] 2021-01-14 00:00:00 2021-01-14 00:00:00 Case Management Kassandra Benavides [facility] 1..840.114 350.1.13.10 4.2.7.2.686 [id number] [id number] [facility] 2021-01-14 00:00:00 2021-01-14 00:00:00 Patient Secure Msg Doctor Unassigned, [facility] 1.2840.114 350.1.13.10 4.2.7.2.686 [id number] [facility] 2021-01-12 16:10:00 2021-01-12 19:45:00 Emergency Hany Matthews [facility] 1.2840.114 350.1.13.10 4.2.7.2.686 [id number] [facility] 2021-01-12 15:20:00 2021-01-12 15:20:00 Outpatient R WILLIE MEDRANO [facility] [id number] [facility] 2021-01-12 14:46:57 2021-01-12 15:06:57 Urgent Care Thony Johnson, [facility] 1.2840.114 350.1.13.10 4.2.7.2.686 [id number] [facility] 2020-12-26 15:30:00 2020-12-26 16:13:32 Outpatient R RAD SERRA [facility] [id number] [facility] 2020-12-26 15:30:00 2020-12-26 16:13:32 Office Visit Rad Serra [facility] BUILDING 1.2.840.114 350.1.13.10 4.2.7.2.686 [id number] [facility] 2020-12-26 15:00:32 2020-12-26 16:13:32 Office Visit Rad Serra [facility] Building 1.2840.114 350.1.13.10 4.2.7.2.686 [id number] [facility] 2020-12-26 15:30:00 2020-12-26 15:30:00 Outpatient R RAD SERRA [facility] [id number] [facility] 2020-11-29 00:00:00 2020-11-29 00:00:00 Patient Secure Rad Wells [facility] 1..114 350.1.13.10 4.2.7.2.686 [id number] [facility] 2020-11-22 11:00:00 2020-11-22 11:00:00 Outpatient DESIREE STONE [facility] [id number] [facility] 2020-11-10 18:42:46 2020-11-10 19:53:43 Urgent Care Dennis Alissa [facility] Office Building One 1..114 350.1.13.10 4.2.7.2.686 [id number] 2020-11-10 19:00:00 2020-11-10 19:00:00 Outpatient R [facility] [id number] [facility] 2020-10-31 18:52:00 2020-10-31 22:15:00 [facility]..114 350.1.13.10 4.2.7.2.686 [id number] [id number] 2020-10-31 19:00:00 2020-10-31 19:00:00 Outpatient BEBA TUTTLE [facility] [id number] [facility] 2020-10-31 00:00:00 2020-10-31 00:00:00 Orders Only Doctor Unassigned, [facility] 1.114 350.1.13.10 4.2.7.2.686 [id number] 2020-10-20 14:02:00 2020-10-20 17:13:00 Emergency Kaycee Méndez [facility] 1..114 350.1.13.10 4.2.7.2.686 [id number] 2020-10-18 00:00:00 2020-10-18 00:00:00 Patient Secure Msg [facility] 1.2.840.114 350.1.13.10 4.2.7.2.686 [id number] 134 [id number] [facility] 2020-10-14 10:00:00 2020-10-14 23:59:00 Hospital Encounter Prasanna Vargas [facility] 1.2.840.114 350.1.13.10 4.2.7.2.686 [id number] 2020-10-14 13:30:00 2020-10-14 13:30:00 Outpatient DESIREE STONE [facility] [id number] [facility] 2020-10-11 00:00:00 2020-10-11 00:00:00 Patient Secure Msg Prasanna Vargas [facility] 1.2.840.114 350.1.13.10 4.2.7.2.686 [id number] 134 [id number] [facility] 2020-10-11 00:00:00 2020-10-11 00:00:00 Patient Secure Msg Prasanna Vargas [facility] 1.2.840.114 350.1.13.10 4.2.7.2.686 [id number] 134 [id number] [facility] 2020-10-09 12:00:00 2020-10-09 15:57:00 Emergency Lydia Kim [facility] 1.2.840.114 350.1.13.10 4.2.7.2.686 [id number] 2020-10-07 00:00:00 2020-10-07 00:00:00 Patient Secure Msg Prasanna Vargas [facility] 1.2.840.114 350.1.13.10 4.2.7.2.686 [id number] 134 [id number] [facility] 2020-10-07 00:00:00 2020-10-07 00:00:00 Patient Secure [facility] 1.2.840.114 350.1.13.10 4.2.7.2.686 [id number] 134 [id number] [facility] 2020-10-07 00:00:00 2020-10-07 00:00:00 Patient Secure Msg [facility] 1.2.840.114 350.1.13.10 4.2.7.2.686 [id number] 134 [id number] [facility] 2020-10-07 00:00:00 2020-10-07 00:00:00 Patient Secure Msg [facility] 1.2.840.114 350.1.13.10 4.2.7.2.686 [id number] 134 [id number] [facility] 2020-10-07 00:00:00 2020-10-07 00:00:00 Patient Secure Msg [facility] 1.2.840.114 350.1.13.10 4.2.7.2.686 [id number] 134 [id number] [facility] 2020-10-07 00:00:00 2020-10-07 00:00:00 Patient Secure Msg [facility] 1.2.840.114 350.1.13.10 4.2.7.2.686 [id number] 134 [id number] [facility] 2020-10-07 00:00:00 2020-10-07 00:00:00 Patient Secure Msg Vargas, [facility] 1.2.840.114 350.1.13.10 4.2.7.2.686 [id number] 134 [id number] [facility] 2020-10-06 08:53:00 2020-10-06 09:46:44 Office Visit Prasanna Vargas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 Negative Deamidated Gliadin Peptide (DGP) Ab, IgA (test code = 6422406107) 0.8 U/mL <=7.0 WESLEY (test code = WESLEY) < 7 U/mL ? Negative7 - 10 U/mL ?Equivocal> 10 U/mL ?Positive In case of equivocal results, we recommend to retest the patient after 8 -12 weeks. Lab Interpretation (test code = 42993-3) Normal [facility]aDeamidated Gliadin [id number] 19:08:55* Test Item Value Reference Range Interpretation Comme nts Deamidated Gliadin Peptide (DGP) Ab, IgA Interpretation (test code = 40552-2) Negative Negative Deamidated Gliadin Peptide (DGP) Ab, IgA (test code = 1143651659) 0.8 U/mL <=7.0 WESLEY (test code = WESLEY) < 7 U/mL ? Negative7 - 10 U/mL ?Equivocal> 10 U/mL ?Positive In case of equivocal results, we recommend to retest the patient after 8 -12 weeks. Lab Interpretation (test code = 57360-2) Normal [facility]aXR [id number] 21:07:52EXAM: XR KUB HISTORY: 29 years-old Female; Provided indication: Checking for bowelobstruction or con stipation . TECHNIQUE: Frontal view of the abdomen and pelvis COMPARISON: MR abdomen obtained on [facility]/25/2024[facility] ChildrenXR [id number] 21:07:52EXAM: XR KUB HISTORY: 29 years-old Female; Provided indication: Checking for bowelobstruction or constipation . TECHNIQUE: Frontal view of the abdomen and pelvis COMPARISON: MR abdomen obtained on 02/25/2024Un[facility] ChildrenMR ABDOMEN W WO CONTRAST [id number] 21:07:42EXAM: MRI ABDOMEN with and without CONTRAST [...] cholecystectomy. There is a tiny focus of D5jhgjfikieybmdn seen only on the T2 fat-suppressed axial [...] lymphadenopathy. VESSELS:Unremarkable. BONES AND SOFT TISSUES: Unremarkable.[facility]aMR [facility]BD[facility] W WO CONTRAST [id number] 21:07:42EXAM: MRI ABDOMEN with and without CONTRAST [...] cholecystectomy. There is a tiny focus of I8zrqzxliwnwsbhm seen only on the T2 fat-suppressed axial [...] No lymphadenopathy. VESSELS:Unremarkable. BONES AND SOFT TISSUES: Unremarkable.[facility] GLUCOSE (AUTOMATED) 2024-02-24 01:35:26* Test Item Value Reference Range Interpretation Comme nts POCT GLU (test code = 5931864949) 95 mg/dL 70-110 Lab Interpretation (test cod e = 14178-7) Normal [facility] GLUCOSE (AUTOMATED)2024-02-24 01:35:26* Test Item Value Reference Range Interpretation Comme nts POCT GLU (test code = 4681974666) 95 mg/dL 70-110 Lab Interpretation (test cod e = 91666-5) Normal [facility]aHcv Jgpfshjd9621-77-73 21:28:55* Test Item Value Reference Range Interpretation Comme nts HCV Ab (test code = 93808-5) Negative HCV Semi-Quantitative (test code = 09910-6) 0.01 [facility]aHcv Vovebacp3301-94-38 21:28:55* Test Item Value Reference Range Interpretation Comme nts HCV Ab (test code = 79079-1) Negative HCV Semi-Quantitative (test code = 60465-1) 0.01 [facility]aC-Reactive Rgvtbvb5419-89-43 18:59:19* Test Item Value Reference Range Interpretation Comme nts CRP (test code = 3375113534) 0.3 mg/dL <=0.8 Lab Interpretation (test cod e = 38661-6) Normal [facility]-Reactive Acsdvdv5530-49-68 18:59:19* Test Item Value Reference Range Interpretation Comme nts CRP (test code = 3229257141) 0.3 mg/dL <=0.8 Lab Interpretation (test cod e = 91180-7) Normal [facility]aHepatitis B Surface Bgardfyi3150-44-21 16:37:53* Test Item Value Reference Range Interpretation Comme nts HBsAB (test code = 4358797070) Negative HBsAb Semi-Quantitative (test code = 7249366678) 0.00 mIU/mL WESLEY (test code = WESLEY) Interpretation: ?Hepatitis B Surface Antibody ? Negative - Patient is considered to be not immune to infection with HBV. ? ? Positive - Anti-HBs detected at greater than or equal to 12 mIU/mL. ?Patient is considered to be immune to infection with HBV. ? [facility]aHepatitis B Surface Gttxgvlt5387-55-57 16:37:53* Test Item Value Reference Range Interpretation Comme nts HBsAB (test code = 1133580858) Negative HBsAb Semi-Quantitative (test code = 7889985445) 0.00 mIU/mL WESLEY (test code = WESLEY) Interpretation: ?Hepatitis B Surface Antibody ? Negative - Patient is considered to be not immune to infection with HBV. ? ? Positive - Anti-HBs detected at greater than or equal to 12 mIU/mL. ?Patient is considered to be immune to infection with HBV. ? [facility]aHIV 1/2 Ag-Ab with Ccnbgh5140-79-76 16:37:47* Test Item Value Reference Range Interpretation Comme nts HIV Semi-quantitative (test code = 76155-4) 0.09 Negative WESLEY (test code = WESLEY) Non-reactive for HIV-1 antigen and HIV-1/HIV-2 antibodies. ?No laboratory evidence of HIV infection. ?Repeat in 2-4 weeks if acute HIV infection is suspected. [facility]aHepatimacon [facility] B Surface Pyndlha7704-31-01 16:37:47 * Test Item Value Reference Range Interpretation Comme nts HBsAg Semi-Quantitative (maeve t code = 5195-3) 0.12 Negative [facility]aHIV 1/2 Ag-Ab with Tcfuju5820-96-34 16:37:47* Test Item Value Reference Range Interpretation Comme nts HIV Semi-quantitative (test code = 21403-2) 0.09 Negative WESLEY (test code = WESLEY) Non-reactive for HIV-1 antigen and HIV-1/HIV-2 antibodies. ?No laboratory evidence of HIV infection. ?Repeat in 2-4 weeks if acute HIV infection is suspected. [facility]He[facility] B Surface Gemkwiw5939-77-14 16:37:47 * Test Item Value Reference Range Interpretation Comme nts HBsAg Semi-Quantitative (maeve t code = 5195-3) 0.12 Negative [facility]aHbc Antibody (IgM & IgG)2024-02-23 16:37:42* Test Item Value Reference Range Interpretation Comme nts HBC (test code = 3435039839) Negative HBC Semi-Quantitative (test code = 7306953488) 3.51 [facility]aHbc Antibody (IgM & IgG)2024-02-23 16:37:42* Test Item Value Reference Range Interpretation Comme nts HBC (test code = 1395896738) Negative HBC Semi-Quantitative (test code = 3017686354) 3.51 [facility]aSedimentation Eaar0353-14-63 13:48:13* Test Item Value Reference Range Interpretation Comme nts ESR (test code = 21428-7) 23 2-30 Lab Interpretation (test cod e = 99578-5) Normal [facility]aSedialleg[facility] Lkxv5216-99-53 13:48:13* Test Item Value Reference Range Interpretation Comme nts ESR (test code = 59489-1) 23 2-30 Lab Interpretation (test cod e = 52762-3) Normal [facility]cosaHepatic Function Panel (32001) (ALB,T.PRO,BILI T,BU/BC,ALT,AST,ALK PHOS)2024-02-22 19:51:55* Test Item Value Reference Range Interpretation Comme nts TOTAL BILI (test code = 3351192618) 1.0 mg/dL 0.1-1.1 BILI UNCON (test code = 3621835072) 0.4 mg/dL 0.1-1.1 BILI CONJ (test code = 8040767852) 0.0 mg/dL 0.0-0.3 T PROTEIN (test code = 9818844910) 8.5 g/dL 6.3-8.2 H ALBUMIN (test code = 8826486482) 4.9 g/dL 3.5-5.0 ALK PHOS (test code = 5401004488) 87 U/L 34-122 Slight hemolysis ALTv (test code = 1742-6) 77 U/L 5-35 H AST(SGOT) (test code = 1535410609) 57 U/L 13-40 H Slight hemolysis Lab Interpretation (test code = 12248-3) Abnormal [facility]aHepatic Function Panel (86554) (ALB,T.PRO,BILI T,BU/BC,ALT,AST,ALK PHOS)2024-02-22 19:51:55* Test Item Value Reference Range Interpretation Comme nts TOTAL BILI (test code = 4996769430) 1.0 mg/dL 0.1-1.1 BILI UNCON (test code = 0605565252) 0.4 mg/dL 0.1-1.1 BILI CONJ (test code = 7273649866) 0.0 mg/dL 0.0-0.3 T PROTEIN (test code = 7081999275) 8.5 g/dL 6.3-8.2 H ALBUMIN (test code = 6645040012) 4.9 g/dL 3.5-5.0 ALK PHOS (test code = 1907850534) 87 U/L 34-122 Slight hemolysis ALTv (test code = 1742-6) 77 U/L 5-35 H AST(SGOT) (test code = 9476690547) 57 U/L 13-40 H Slight hemolysis Lab Interpretation (test code = 43541-7) [facility]normal [facility]XR CHEST 2 [id number] 18:19:37ORDERING PROVIDER: ?COLIN ELMORE MORRICAL HISTORY: Hematemesis TECHNIQUE: Frontal and lateral views of the Chest. [facility]ST 2 [id number] 18:19:37ORDERING PROVIDER: ?COLIN ELMORE MORRICAL HISTORY: Hematemesis TECHNIQUE: Frontal and lateral views of the Chest. COM[facility]: [facility] [id number] 17:50:15ORDERING PROVIDER: COLIN MONGERICAL HISTORY: N/v/diarrhea worsening [...] lesions. ?There is normal corticalthickness, contour and echogenicity.[facility] ABDOMEN [id number] 17:50:15ORDERING PROVIDER: COLIN ELMORE MORRICAL HISTORY: N/v/diarrhea [...] is normal corticalthickness, contour and echogenicity.[facility] [id number] 15:52:12* Test Item Value Reference Range Interpretation Comme nts TROPONIN I (test code = 4441520839) 0.006 ng/mL <=0.034 WESLEY (test code = [...] of biotin. Lab Interpretation (test code = 54385-1) Normal [facility] [id number] 15:52:12* Test Item Value Reference Range Interpretation Comme nts TROPONIN I (test code = 0279033248) 0.006 ng/mL <=0.034 WESLEY (test code = [...] of biotin. Lab Interpretation (test code = 08583-2) Normal [facility]aPREGNANCY TEST, [id number] 15:52:07* Test Item Value Reference Range Interpretation Comme nts PREG SERUM (test code = 5066356605) Negative WESLEY (test code = WESLEY) Less than 10 IU/L. ?If low titer or ectopic is suspected, resubmit specimen in 48-72 hours. [facility]aPREGNANCY TEST, [id number] 15:52:07* Test Item Value Reference Range Interpretation Comme nts PREG SERUM (test code = 5327780981) Negative WESLEY (test code = WESLEY) Less than 10 IU/L. ?If low titer or ectopic is suspected, resubmit specimen in 48-72 hours. [facility]aLIPASE2024-10-12 15:40:04* Test Item Value Reference Range Interpretation Comme nts LIPASE (test code = 6455324323) 69 U/L 0-220 Lab Interpretation (test cod e = 90907-5) Normal [facility]aLIPASE2024-10-12 15:40:04* Test Item Value Reference Range Interpretation Comme nts LIPASE (test code = 8156876658) 69 U/L 0-220 Lab Interpretation (test cod e = 01090-3) Normal [facility]aCOMP. METABOLIC PANEL (50149)2024-02-22 15:40:03* Test Item Value Reference Range Interpretation Comme nts NA (test code = 1888511804) 137 mmol/L 135-145 K (test code = 5010769065) 3.9 mmol/L 3.5-5.0 Slight hemolysis CL (test code = 6594437574) 102 mmol/L 98-108 CO2 TOTAL (test code = 9523039599) 24 mmol/L 23-31 AGAP (test code = 5299630392) 11 2-16 BUN (test code = 6252097633) 9 mg/dL 7-23 Slight hemolysis GLUCOSE (test code = 9754479001) 94 mg/dL 70-110 CREATININE (test code = 2160-0) 0.70 mg/dL 0.50-1.04 TOTAL BILI (test code = 0829278774) 1.0 mg/dL 0.1-1.1 CALCIUM (test code = 8653211034) 9.3 mg/dL 8.6-10.6 T PROTEIN (test code = 1704023493) 8.4 g/dL 6.3-8.2 H ALBUMIN (test code = 8977207835) 5.0 g/dL 3.5-5.0 ALK PHOS (test code = 2495521742) 79 U/L 34-122 Slight hemolysis ALTv (test code = 1742-6) 74 U/L 5-35 H AST(SGOT) (test code = 9267972873) 57 U/L 13-40 H Slight hemolysis eGFR (test code = 02702-7) 120.2 mL/min/1.73m2 CKD-EPI eGFR (2020). Assuming creatinine has been stable day-to-day for at least three months, the eGFR indicates Category G1 (>= 90 mL/min/1.73 m2) Lab Interpretation (test code = 13386-2) Abnormal [facility]. METABOLIC PANEL (54454)2024-02-22 15:40:03* Test Item Value Reference Range Interpretation Comme nts NA (test code = 6470523322) 137 mmol/L 135-145 K (test code = 3562474731) 3.9 mmol/L 3.5-5.0 Slight hemolysis CL (test code = 0920382619) 102 mmol/L 98-108 CO2 TOTAL (test code = 9276203742) 24 mmol/L 23-31 AGAP (test code = 7681333982) 11 2-16 BUN (test code = 5423455092) 9 mg/dL 7-23 Slight hemolysis GLUCOSE (test code = 8258138870) 94 mg/dL 70-110 CREATININE (test code = 2160-0) 0.70 mg/dL 0.50-1.04 TOTAL BILI (test code = 1779734183) 1.0 mg/dL 0.1-1.1 CALCIUM (test code = 0272997540) 9.3 mg/dL 8.6-10.6 T PROTEIN (test code = 3897808170) 8.4 g/dL 6.3-8.2 H ALBUMIN (test code = 1140443004) 5.0 g/dL 3.5-5.0 ALK PHOS (test code = 7536032178) 79 U/L 34-122 Slight hemolysis ALTv (test code = 1742-6) 74 U/L 5-35 H AST(SGOT) (test code = 8157461202) 57 U/L 13-40 H Slight hemolysis eGFR (test code = 03325-4) 120.2 mL/min/1.73m2 CKD-EPI eGFR (2020). Assuming creatinine has been stable day-to-day for at least three months, the eGFR indicates Category G1 (>= 90 mL/min/1.73 m2) Lab Interpretation (test code = 28725-4) Abnormal General acute hospital WITH [id number] 15:35:41* Test Item Value Reference Range Interpretation [...] 34.3 g/dL 31.6-35.1 RDW-SD (test code = 71661-7) 41.3 fL 39.0-49.9 RDW-CV (test code = 788-0) 13.2 % 12.0-15.5 PLT (test code = 777-3) 329 166-358 MPV (test code = 27449-3) 9.9 fL 9.5-12.9 NRBC/100 WBC (test code = 1996574937) 0.0 0.0-10.0 NRBC x10^3 (test code = 6488436066) See_Comment [Automated messa ge] The system which generated this result transmitted reference range: 10*3/?L. The reference range was not used to interpret this result as normal/abnormal. GRAN MAT (NEUT) % (test code = 770-8) 66.5 % IMM GRAN % (test code = 1496396509) 0.30 % LYMPH % (test code = 736-9) 26.8 % MONO % (test code = 5905-5) 3.5 % EOS % (test code = 713-8) 2.3 % BASO % (test code = 706-2) 0.6 % GRAN MAT x10^3(ANC) (test code = 7238942279) 5.71 10*3/uL 1.88-7.09 IMM GRAN x10^3 (test code = 8563625003) 0.03 10*3/uL 0.00-0.06 LYMPH x10^3 (test code = 731-0) 2.30 10*3/uL 1.32-3.29 MONO x10^3 (test code = 742-7) 0.30 10*3/uL 0.33-0.92 L EOS x10^3 (test code = 711-2) 0.20 10*3/uL 0.03-0.39 BASO x10^3 (test code = 704-7) 0.05 10*3/uL 0.01-0.07 Lab Interpretation (test code = 84224-4) Abnormal General acute hospital WITH [id number] 15:35:41* Test Item Value Reference Range Interpretation [...] 34.3 g/dL 31.6-35.1 RDW-SD (test code = 95729-2) 41.3 fL 39.0-49.9 RDW-CV (test code = 788-0) 13.2 % 12.0-15.5 PLT (test code = 777-3) 329 166-358 MPV (test code = 58820-6) 9.9 fL 9.5-12.9 NRBC/100 WBC (test code = 7132485234) 0.0 0.0-10.0 NRBC x10^3 (test code = 4739179431) See_Comment [Automated messa ge] The system which generated this result transmitted reference range: 10*3/?L. The reference range was not used to interpret this result as normal/abnormal. GRAN MAT (NEUT) % (test code = 770-8) 66.5 % IMM GRAN % (test code = 4114788708) 0.30 % LYMPH % (test code = 736-9) 26.8 % MONO % (test code = 5905-5) 3.5 % EOS % (test code = 713-8) 2.3 % BASO % (test code = 706-2) 0.6 % GRAN MAT x10^3(ANC) (test code = 0484150601) 5.71 10*3/uL 1.88-7.09 IMM GRAN x10^3 (test code = 4515162970) 0.03 10*3/uL 0.00-0.06 LYMPH x10^3 (test code = 731-0) 2.30 10*3/uL 1.32-3.29 MONO x10^3 (test code = 742-7) 0.30 10*3/uL 0.33-0.92 L EOS x10^3 (test code = 711-2) 0.20 10*3/uL 0.03-0.39 BASO x10^3 (test code = 704-7) 0.05 10*3/uL 0.01-0.07 Lab Interpretation (test code = 97346-0) [facility]01583[facility]23-05-19 17:55:27* Test Item Value Reference Range Interpretation Comme nts NA (test code = 3633829612) 138 mmol/L 135-145 K (test code = 2585401942) 3.8 mmol/L 3.5-5.0 CL (test code = 0355160274) 107 mmol/L 98-108 CO2 TOTAL (test code = 0164777198) 21 mmol/L 23-31 L AGAP (test code = 1739002020) 10 2-16 BUN (test code = 1648974049) 8 mg/dL 7-23 GLUCOSE (test code = 8699742593) 89 mg/dL 70-110 CREATININE (test code = 4965428842) 0.69 mg/dL 0.50-1.04 TOTAL BILI (test code = 9971901935) 0.7 mg/dL 0.1-1.1 CALCIUM (test code = 9597623898) 8.3 mg/dL 8.6-10.6 L T PROTEIN (test code = 8564922670) 7.3 g/dL 6.3-8.2 ALBUMIN (test code = 6278322642) 4.1 g/dL 3.5-5.0 ALK PHOS (test code = 9830011511) 107 U/L 34-122 ALTv (test code = 1742-6) 75 U/L 5-35 H AST(SGOT) (test code = 1255842166) 42 U/L 13-40 H eGFR (test code = 58465-5) 121.4 mL/min/1.73m2 CKD-EPI eGFR (2020). Assuming creatinine has been stable day-to-day for at least three months, the eGFR indicates Category G1 (>= 90 mL/min/1.73 m2) Lab Interpretation (test code = 94249-8) [facility]* Test Item Value Reference Range Interpretation Comme nts LIPASE (test code = 1489988634) 40 U/L 0-220 Lab Interpretation (test cod e = 14549-1) [facility] [id number] 16:27:28EXAM: CT ABDOMEN PELVIS W CONTRAST HISTORY: [...] isseen within the right gluteal soft tissue.[facility] CBC WITH [id number] 16:14:18* Test Item Value Reference Range Interpretation Comme nts WBC (test code = 6690-2) 6.32 See_Comment [Automated [employer]] The system which generated this result transmitted reference range: 4.30 - 11.10 10*3/?L. The reference range was not used to interpret this result as normal/abnormal. RBC (test code = 789-8) 4.61 See_Comment [Automated [employer]] The system which generated this result transmitted [...] 34.1 g/dL 31.6-35.1 RDW-SD (test code = 85410-7) 42.0 fL 39.0-49.9 RDW-CV (test code = 788-0) 13.0 % 12.0-15.5 PLT (test code = 777-3) 369 See_Comment H [Automated [employer]] The system which generated this result transmitted reference range: 166 - 358 10*3/?L. The reference range was not used to interpret this result as normal/abnormal. MPV (test code = 66878-1) 9.9 fL 9.5-12.9 NRBC/100 WBC (test code = 9662733529) 0.0 See_Comment [Automated me ssage] The system which generated this result transmitted reference range: 0.0 - 10.0 /100 WBCs. The reference range was not used to interpret this result as normal/abnormal. NRBC x10^3 (test code = 8921404623) See_Comment [Automated messa ge] The system which generated this result transmitted reference range: 10*3/?L. The reference range was not used to interpret this result as normal/abnormal. GRAN MAT (NEUT) % (test code = 770-8) 64.8 % IMM GRAN % (test code = 5543511243) 0.50 % LYMPH % (test code = 736-9) 25.3 % MONO % (test code = 5905-5) 4.1 % EOS % (test code = 713-8) 4.7 % BASO % (test code = 706-2) 0.6 % GRAN MAT x10^3(ANC) (test code = 3092376031) 4.09 10*3/uL 1.88-7.09 IMM GRAN x10^3 (test code = 6153811723) 0.03 10*3/uL 0.00-0.06 LYMPH x10^3 (test code = 731-0) 1.60 10*3/uL 1.32-3.29 MONO x10^3 (test code = 742-7) 0.26 10*3/uL 0.33-0.92 L EOS x10^3 (test code = 711-2) 0.30 10*3/uL 0.03-0.39 BASO x10^3 (test code = 704-7) 0.04 10*3/uL 0.01-0.07 Lab Interpretation (test code = 56159-1) [facility] [id number] 15:31:00* Test Item Value Reference Range Interpretation Comme nts POCT PREG (test code = 1605) Negative On board controls acceptable with C Line (test code = 3574) Yes POCT PREG LOT # (test code = 3575) [id number] POCT PREG TEST DATE ( test code = 3576) 2024-07-21 Lab Interpretation (test cod e = 30509-8) [facility] WITH [id number] 04:28:47* Test Item Value Reference Range Interpretation [...] 34.0 g/dL 31.6-35.1 RDW-SD (test code = 72804-9) 40.3 fL 39.0-49.9 RDW-CV (test code = 788-0) 13.1 % 12.0-15.5 PLT (test code = 777-3) 307 See_Comment [Automated messa ge] The system which generated this result transmitted reference range: 166 - 358 10*3/?L. The reference range was not used to interpret this result as normal/abnormal. MPV (test code = 12868-4) 11.0 fL 9.5-12.9 NRBC/100 WBC (test code = 5913913529) 0.0 See_Comment [Automated [employer]] The system which generated this result transmitted reference range: 0.0 - 10.0 /100 WBCs. The reference range was not used to interpret this result as normal/abnormal. NRBC x10^3 (test code = 4289658247) See_Comment [Automated messa ge] The system which generated this result transmitted reference range: 10*3/?L. The reference range was not used to interpret this result as normal/abnormal. GRAN MAT (NEUT) % (test code = 770-8) 52.0 % IMM GRAN % (test code = 1926955753) 0.20 % LYMPH % (test code = 736-9) 38.0 % MONO % (test code = 5905-5) 4.6 % EOS % (test code = 713-8) 4.6 % BASO % (test code = 706-2) 0.6 % GRAN MAT x10^3(ANC) (test code = 3537317752) 2.84 10*3/uL 1.88-7.09 IMM GRAN x10^3 (test code = 6755309300) 0.00-0.06 LYMPH x10^3 (test code = 731-0) 2.07 10*3/uL 1.32-3.29 MONO x10^3 (test code = 742-7) 0.25 10*3/uL 0.33-0.92 L EOS x10^3 (test code = 711-2) 0.25 10*3/uL 0.03-0.39 BASO x10^3 (test code = 704-7) 0.03 10*3/uL 0.01-0.07 Lab Interpretation (test code = 24284-2) [facility] ([id number])2023-01-12 04:12:43* Test Item Value Reference Range Interpretation Comme nts NA (test code = 2711761016) 137 mmol/L 135-145 K (test code = 6323432761) 3.4 mmol/L 3.5-5.0 L CL (test code = 5363113129) 104 mmol/L 98-108 CO2 TOTAL (test code = 3274640331) 24 mmol/L 23-31 AGAP (test code = 8068628623) 9 2-16 BUN (test code = 8052729353) 2 mg/dL 7-23 L GLUCOSE (test code = 0004188674) 92 mg/dL 70-110 CREATININE (test code = 3225004287) 0.80 mg/dL 0.50-1.04 TOTAL BILI (test code = 0122306017) 0.4 mg/dL 0.1-1.1 CALCIUM (test code = 5066156064) 8.4 mg/dL 8.6-10.6 L T PROTEIN (test code = 2157022045) 6.3 g/dL 6.3-8.2 ALBUMIN (test code = 4627694648) 3.7 g/dL 3.5-5.0 ALK PHOS (test code = 3227182892) 87 U/L 34-122 ALTv (test code = 1742-6) 27 U/L 5-35 AST(SGOT) (test code = 7834072326) 33 U/L 13-40 eGFR (test code = 6237470056) 86.0 mL/min/1.73m2 WESLEY (test code = WESLEY) [...] imaging tests). Lab Interpretation (test code = 73944-6) [facility] ([id number])2023-01-12 04:12:43* Test Item Value Reference Range Interpretation Comme nts NA (test code = 8052934756) 137 mmol/L 135-145 K (test code = 7696941889) 3.4 mmol/L 3.5-5.0 L CL (test code = 0366737909) 104 mmol/L 98-108 CO2 TOTAL (test code = 6970749111) 24 mmol/L 23-31 AGAP (test code = 1022944536) 9 2-16 BUN (test code = 0915102204) 2 mg/dL 7-23 L GLUCOSE (test code = 0435927455) 92 mg/dL 70-110 CREATININE (test code = 0980149666) 0.80 mg/dL 0.50-1.04 TOTAL BILI (test code = 9691756717) 0.4 mg/dL 0.1-1.1 CALCIUM (test code = 8711485510) 8.4 mg/dL 8.6-10.6 L T PROTEIN (test code = 6036556358) 6.3 g/dL 6.3-8.2 ALBUMIN (test code = 6433258158) 3.7 g/dL 3.5-5.0 ALK PHOS (test code = 1657972702) 87 U/L 34-122 ALTv (test code = 1742-6) 27 U/L 5-35 AST(SGOT) (test code = 8566991033) 33 U/L 13-40 eGFR (test code = 8542169941) 86.0 mL/min/1.73m2 WESLEY (test code = WESLEY) [...] imaging tests). Lab Interpretation (test code = 58637-2) [facility]:04 BETA HCG<2.39Non- female and male patients: <5 mIU/mL01/11/2023 11:07 PM [facility] Gestational Age ?Range (mIU/mL) 1-10 ?Weeks ?[phone] Weeks ?75347-70242038-20 Weeks ?3778-32985363-84 Weeks ?1531-460606 Biotin has been reported to cause a negative bias, interpret results relative to patient's use of biotin. Gestational Age ?Range (mIU/mL) 1-10 ?Weeks ?95-06122860-57 Weeks ?84081-61969667-67 Weeks ?4042-81170828-15 Weeks?1531-585309 Biotin has been reported to cause a negative bias, interpret results relative to patient's use of biotin. Gestational Age ?Range (mIU/mL) 1-10 ?Weeks ?44-16170046-85 Weeks ?68060-94916315-20 Weeks ?2762-12641867-67 Weeks ?1531-032894 Biotin has been reported to cause a negative bias, interpretresults relative to patient's use of biotin.[facility]CG (QUANTITATIVE)2023-01-12 04:07:04BETA HCG<2.39Non- female and male patients: <5 mIU/mL01/11/2023 11:07 PM [facility] Gestational Age ?Range (mIU/mL) 1-10 ?Weeks ?69-08401857-90 Weeks ?12098-57742148-43 Weeks ?4242-46986889-34 Weeks ?1531-195190 Biotin has been reported to cause a negative bias, interpret results relative topatient's use of biotin. Gestational Age ?Range (mIU/mL) 1-10 ?Weeks ?88-30977259-64 Weeks ?54520-53159129-51 Weeks ?7287-90578569-34 Weeks?1531-425343 Biotin has been reported to cause a negative bias, interpret results relative to patient's use of biotin. Gestational Age ?Range (mIU/mL) 1-10 ?Weeks ?91-09333077-22 Weeks ?08878-48628345-83 Weeks ?4249-55843822-24 Weeks ?1531-194215 Biotin has been reported to cause a negative bias, interpretresults relative to patient's use of biotin.[facility] 03:22:58* Test Item Value Reference Range Interpretation Comme nts LIPASE (test code = 0372969368) 41 U/L 0-220 Lab Interpretation (test cod e = 72949-8) [facility] 03:22:58* Test Item Value Reference Range Interpretation Comme nts LIPASE (test code = 0562862323) 41 U/L 0-220 Lab Interpretation (test cod e = 30023-7) Normal [facility] [id number] 03:02:00* Test Item Value Reference Range Interpretation Comme nts POCT PREG (test code = 1605) Negative On board controls acceptable with C Line (test code = 3574) Yes POCT PREG LOT # (test code = 3575) [id number] POCT PREG TEST DATE ( test code = 3576) 05/15/2024 Lab Interpretation (test cod e = 44230-8) Normal [facility] [id number] 03:02:00* Test Item Value Reference Range Interpretation Comme nts POCT PREG (test code = 1605) Negative On board controls acceptable with C Line (test code = 3574) Yes POCT PREG LOT # (test code = 3575) [id number] POCT PREG TEST DATE ( test code = 3576) 05/15/2024 Lab Interpretation (test cod e = 08864-6) [facility], [id number] 00:23:34* Test Item Value Reference Range Interpretation Comme nts PREG SERUM (test code = 6696125736) Negative WESLEY (test code = WESLEY) Less than 10 IU/L. ?If low titer or ectopic is suspected, resubmit specimen in 48-72 hours. [facility]. METABOLIC PANEL (82855)2022-07-31 23:58:12* Test Item Value Reference Range Interpretation Comme nts NA (test code = 1403999411) 140 mmol/L 135-145 K (test code = 9879034181) 3.6 mmol/L 3.5-5.0 CL (test code = 6443273005) 106 mmol/L 98-108 CO2 TOTAL (test code = 4539635625) 21 mmol/L 23-31 L AGAP (test code = 6962920641) 13 2-16 BUN (test code = 7762469612) 8 mg/dL 7-23 GLUCOSE (test code = 5882251398) 90 mg/dL 70-110 CREATININE (test code = 8528839671) 0.90 mg/dL 0.50-1.04 TOTAL BILI (test code = 9089994189) 0.5 mg/dL 0.1-1.1 CALCIUM (test code = 9668944119) 9.0 mg/dL 8.6-10.6 T PROTEIN (test code = 6402304101) 7.8 g/dL 6.3-8.2 ALBUMIN (test code = 9132750094) 4.6 g/dL 3.5-5.0 ALK PHOS (test code = 0730736960) 63 U/L 34-122 ALTv (test code = 1742-6) 23 U/L 5-35 AST(SGOT) (test code = 0955150444) 27 U/L 13-40 eGFR (test code = 1339620088) 75.1 mL/min/1.73m2 WESLEY (test code = WESLEY) [...] imaging tests). Lab Interpretation (test code = 46670-5) [facility] 23:57:32* Test Item Value Reference Range Interpretation Comme nts LIPASE (test code = 4631980723) 55 U/L 0-220 Lab Interpretation (test cod e = 83963-5) [facility] [id number] 23:47:31* Test Item Value Reference Range Interpretation Comme nts WBC (test code = 6690-2) 5.64 See_Comment [Automated [employer]] The system which generated this result [...] 32.6 g/dL 31.6-35.1 RDW-SD (test code = 47363-0) 42.5 fL 39.0-49.9 RDW-CV (test code = 788-0) 13.0 % 12.0-15.5 PLT (test code = 777-3) 339 See_Comment [Automated [employer]] The system which generated this result transmitted reference range: 166 - 358 10*3/?L. The reference range was not used to interpret this result as normal/abnormal. MPV (test code = 09869-1) 9.4 fL 9.5-12.9 L NRBC/100 WBC (test code = 7975831998) 0.0 See_Comment [Automated me ssage] The system which generated this result transmitted reference range: 0.0 - 10.0 /100 WBCs. The reference range was not used to interpret this result as normal/abnormal. NRBC x10^3 (test code = 1715210301) See_Comment [Automated messa ge] The system which generated this result transmitted reference range: 10*3/?L. The reference range was not used to interpret this result as normal/abnormal. GRAN MAT (NEUT) % (test code = 770-8) 51.2 % IMM GRAN % (test code = 9661574857) 0.20 % LYMPH % (test code = 736-9) 36.5 % MONO % (test code = 5905-5) 5.7 % EOS % (test code = 713-8) 5.9 % BASO % (test code = 706-2) 0.5 % GRAN MAT x10^3(ANC) (test code = 4891698094) 2.89 10*3/uL 1.88-7.09 IMM GRAN x10^3 (test code = 1619740823) 0.00-0.06 LYMPH x10^3 (test code = 731-0) 2.06 10*3/uL 1.32-3.29 MONO x10^3 (test code = 742-7) 0.32 10*3/uL 0.33-0.92 L EOS x10^3 (test code = 711-2) 0.33 10*3/uL 0.03-0.39 BASO x10^3 (test code = 704-7) 0.03 10*3/uL 0.01-0.07 Lab Interpretation (test code = 56795-1) [facility] [id number] 16:14:38* Test Item Value Reference Range Interpretation Comme nts POCT Molecular Strep (test c ode = 31194-2) Negative Negative Lab Interpretation (test cod e = 07540-0) [facility]53[facility] 19:35:37* Test Item Value Reference Range Interpretation Comme nts NA (test code = 0126787542) 139 mmol/L 135-145 K (test code = 4821974007) 4.4 mmol/L 3.5-5.0 CL (test code = 9590173718) 104 mmol/L 98-108 CO2 TOTAL (test code = 6904635170) 22 mmol/L 23-31 L AGAP (test code = 6210509282) 2-16 BUN (test code = 0196424293) 11 mg/dL 7-23 GLUCOSE (test code = 6272580175) 95 mg/dL 70-110 CREATININE (test code = 0682910272) 0.71 mg/dL 0.50-1.04 TOTAL BILI (test code = 3459654312) 0.4 mg/dL 0.1-1.1 CALCIUM (test code = 0715485350) 9.1 mg/dL 8.6-10.6 T PROTEIN (test code = 3924267285) 7.9 g/dL 6.3-8.2 ALBUMIN (test code = 6096221500) 4.7 g/dL 3.5-5.0 ALK PHOS (test code = 2013906588) 114 U/L 34-122 ALTv (test code = 1742-6) 21 U/L 5-35 AST(SGOT) (test code = 5558675836) 21 U/L 13-40 eGFR (test code = 5095072711) mL/min/1.73m2 WESLEY (test code = WESLEY) Association [...] imaging tests). Lab Interpretation (test code = 78737-1) [facility]normal [facility] WITH [id number] 19:25:37* Test Item Value Reference Range Interpretation Comme nts WBC (test code = 6690-2) See_Comment [Automated [employer]] The system which generated this result transmitted reference range: 4.30 - 11.10 10*3/?L. The reference range was not used to interpret this result as normal/abnormal. RBC (test code = 789-8) See_Comment [Automated [employer]] The system which generated this result transmitted [...] 32.9 g/dL 31.6-35.1 RDW-SD (test code = 15666-1) 41.7 fL 39.0-49.9 RDW-CV (test code = 788-0) 12.7 % 12.0-15.5 PLT (test code = 777-3) See_Comment H [Automated [employer]] The system which generated this result transmitted reference range: 166 - 358 10*3/?L. The reference range was not used to interpret this result as normal/abnormal. MPV (test code = 05538-6) 8.8 fL 9.5-12.9 L NRBC/100 WBC (test code = 2370890305) See_Comment [Automated me ssage] The system which generated this result transmitted reference range: 0.0 - 10.0 /100 WBCs. The reference range was not used to interpret this result as normal/abnormal. NRBC x10^3 (test code = 0124759707) See_Comment [Automated messa ge] The system which generated this result transmitted reference range: 10*3/?L. The reference range was not used to interpret this result as normal/abnormal. GRAN MAT (NEUT) % (test code = 770-8) 56.1 % IMM GRAN % (test code = 5191709361) 0.40 % LYMPH % (test code = 736-9) 29.9 % MONO % (test code = 5905-5) 5.4 % EOS % (test code = 713-8) 7.8 % BASO % (test code = 706-2) 0.4 % GRAN MAT x10^3(ANC) (test code = 7812668643) 3.75 10*3/uL 1.88-7.09 IMM GRAN x10^3 (test code = 5550490430) 0.03 10*3/uL 0.00-0.06 LYMPH x10^3 (test code = 731-0) 2.00 10*3/uL 1.32-3.29 MONO x10^3 (test code = 742-7) 0.36 10*3/uL 0.33-0.92 EOS x10^3 (test code = 711-2) 0.52 10*3/uL 0.03-0.39 H BASO x10^3 (test code = 704-7) 0.03 10*3/uL 0.01-0.07 Lab Interpretation (test code = 54418-7) Abnormal [facility] [id number] 19:00:00* Test Item Value Reference Range Interpretation Comme nts POCT PREG (test code = 1605) negative On board controls acceptable with C Line (test code = 3574) present POCT PREG LOT # (test code = 3575) [id number] POCT PREG TEST DATE ( test code = 3576) 08-11-2023 Lab Interpretation (test cod e = 80820-0) Normal [facility] WITH [id number] 15:21:11* Test Item Value Reference Range Interpretation [...] 33.0 g/dL 31.6-35.1 RDW-SD (test code = 32346-8) 42.6 fL 39.0-49.9 RDW-CV (test code = 788-0) 12.9 % 12.0-15.5 PLT (test code = 777-3) See_Comment H [Automated messa ge] The system which generated this result transmitted reference range: 166 - 358 10*3/?L. The reference range was not used to interpret this result as normal/abnormal. MPV (test code = 71266-5) 9.1 fL 9.5-12.9 L NRBC/100 WBC (test code = 3016005415) See_Comment [Automated me ssage] The system which generated this result transmitted reference range: 0.0 - 10.0 /100 WBCs. The reference range was not used to interpret this result as normal/abnormal. NRBC x10^3 (test code = 0202646203) See_Comment [Automated messa ge] The system which generated this result transmitted reference range: 10*3/?L. The reference range was not used to interpret this result as normal/abnormal. GRAN MAT (NEUT) % (test code = 770-8) 56.8 % IMM GRAN % (test code = 2518422240) 0.30 % LYMPH % (test code = 736-9) 29.5 % MONO % (test code = 5905-5) 4.3 % EOS % (test code = 713-8) 8.3 % BASO % (test code = 706-2) 0.8 % GRAN MAT x10^3(ANC) (test code = 6838201510) 3.57 10*3/uL 1.88-7.09 IMM GRAN x10^3 (test code = 0628916592) 0.00-0.06 LYMPH x10^3 (test code = 731-0) 1.85 10*3/uL 1.32-3.29 MONO x10^3 (test code = 742-7) 0.27 10*3/uL 0.33-0.92 L EOS x10^3 (test code = 711-2) 0.52 10*3/uL 0.03-0.39 H BASO x10^3 (test code = 704-7) 0.05 10*3/uL 0.01-0.07 Lab Interpretation (test code = 77976-5) Abnormal [facility]. METABOLIC PANEL (85827)2022-04-26 15:12:13* Test Item Value Reference Range Interpretation Comme nts NA (test code = 5054492594) 141 mmol/L 135-145 K (test code = 1945317127) 3.4 mmol/L 3.5-5.0 L CL (test code = 0746553955) 104 mmol/L 98-108 CO2 TOTAL (test code = 6584463560) 23 mmol/L 23-31 AGAP (test code = 1973881863) 2-16 BUN (test code = 2091780890) 9 mg/dL 7-23 GLUCOSE (test code = 0015077570) 101 mg/dL 70-110 CREATININE (test code = 3699650035) 0.82 mg/dL 0.50-1.04 TOTAL BILI (test code = 4843899262) 0.7 mg/dL 0.1-1.1 CALCIUM (test code = 2805859243) 9.3 mg/dL 8.6-10.6 T PROTEIN (test code = 4682809664) 8.1 g/dL 6.3-8.2 ALBUMIN (test code = 4268358227) 4.7 g/dL 3.5-5.0 ALK PHOS (test code = 3587540154) 108 U/L 34-122 ALTv (test code = 1742-6) 24 U/L 5-35 AST(SGOT) (test code = 9580342284) 49 U/L 13-40 H eGFR (test code = 5995985986) mL/min/1.73m2 WESLEY (test code = WESLEY) Association [...] imaging tests). Lab Interpretation (test code = 40492-8) Abnormal [facility] [id number] 14:45:00* Test Item Value Reference Range Interpretation Comme nts POCT PREG (test code = 1605) negative On board controls acceptable with C Line (test code = 3574) present POCT PREG LOT # (test code = 3575) [id number] POCT PREG TEST DATE ( test code = 3576) 08/11/2023 Lab Interpretation (test cod e = 25115-7) [facility] [id number] 01:22:00* Test Item Value Reference Range Interpretation Comme nts POCT PREG (test code = 1605) Negative On board controls acceptable with C Line (test code = 3574) Present POCT PREG LOT # (test code = 3575) [id number] POCT PREG TEST DATE ( test code = 3576) 08-11-2023 Lab Interpretation (test cod e = 33282-3) Normal [facility] [place] [place] METABOLIC PANEL (NA, K, CL, CO2, GLUCOSE, BUN, CREATININE, CA)2022-04-07 23:01:10* Test Item Value Reference Range Interpretation Comme [facility] NA (test code = 1584682428) 138 mmol/L 135-145 K (test code = 4390897346) 4.3 mmol/L 3.5-5.0 CL (test code = 6248323890) 107 mmol/L 98-108 CO2 TOTAL (test code = 4425042099) 20 mmol/L 23-31 L AGAP (test code = 8732661562) 2-16 BUN (test code = 4581711382) 9 mg/dL 7-23 GLUCOSE (test code = 2252788888) 204 mg/dL 70-110 H CREATININE (test code = 2523556530) 0.74 mg/dL 0.50-1.04 CALCIUM (test code = 9413860136) 9.1 mg/dL 8.6-10.6 eGFR (test code = 5220246494) mL/min/1.73m2 WESLEY (test code = WESLEY) Association [...] imaging tests). Lab Interpretation (test code = 41606-2) [facility]normal [facility] WITH [id number] 22:57:34* Test Item Value Reference Range Interpretation Comme nts WBC (test code = 6690-2) See_Comment [Jobyal] The system which generated this result transmitted reference range: 4.30 - 11.10 10*3/?L. The reference range was not used to interpret this result as normal/abnormal. RBC (test code = 789-8) See_Comment [Jobyal] The system which generated this result transmitted [...] 33.5 g/dL 31.6-35.1 RDW-SD (test code = 15716-0) 42.9 fL 39.0-49.9 RDW-CV (test code = 788-0) 13.4 % 12.0-15.5 PLT (test code = 777-3) See_Comment H [Automated messa ge] The system which generated this result transmitted reference range: 166 - 358 10*3/?L. The reference range was not used to interpret this result as normal/abnormal. MPV (test code = 07141-7) 8.9 fL 9.5-12.9 L NRBC/100 WBC (test code = 7833539933) See_Comment [Automated [employer]] The system which generated this result transmitted reference range: 0.0 - 10.0 /100 WBCs. The reference range was not used to interpret this result as normal/abnormal. NRBC x10^3 (test code = 1937241569) See_Comment [Automated [employer]] The system which generated this result transmitted reference range: 10*3/?L. The reference range was not used to interpret this result as normal/abnormal. GRAN MAT (NEUT) % (test code = 770-8) 88.7 % IMM GRAN % (test code = 7109252736) 0.70 % LYMPH % (test code = 736-9) 9.4 % MONO % (test code = 5905-5) 0.9 % EOS % (test code = 713-8) 0.1 % BASO % (test code = 706-2) 0.2 % GRAN MAT x10^3(ANC) (test code = 6715493230) 7.81 10*3/uL 1.88-7.09 H IMM GRAN x10^3 (test code = 4351423449) 0.06 10*3/uL 0.00-0.06 LYMPH x10^3 (test code = 731-0) 0.83 10*3/uL 1.32-3.29 L MONO x10^3 (test code = 742-7) 0.08 10*3/uL 0.33-0.92 L EOS x10^3 (test code = 711-2) 0.03-0.39 L BASO x10^3 (test code = 704-7) 0.01-0.07 Lab Interpretation (test code = 96444-8) Abnormal [facility] [id number] 14:07:00* Test Item Value Reference Range Interpretation Comme nts POCT PREG (test code = 1605) negative On board controls acceptable with C Line (test code = 3574) present POCT PREG LOT # (test code = 3575) [id number] POCT PREG TEST DATE ( test code = 3576) 08/11/2023 Lab Interpretation (test cod e = 11185-9) Normal [facility] [id number] 13:52:00* Test Item Value Reference Range Interpretation Comme nts POCT PREG (test code = 1605) negative On board controls acceptable with C Line (test code = 3574) present Lab Interpretation (test cod e = 83663-8) Normal [facility] [id number] 14:59:00* Test Item Value Reference Range Interpretation Comme nts POCT PREG (test code = 1605) negative On board controls acceptable with C Line (test code = 3574) yes POCT PREG LOT # (test code = 3575) [id number] POCT PREG TEST DATE ( test code = 357) 07/11/2023 Lab Interpretation (test cod e = 50149-8) Normal [facility]. METABOLIC PANEL (34319)2022 17:51:43* Test Item Value Reference Range Interpretation Comme nts NA (test code = 1537505835) 139 mmol/L 135-145 K (test code = 7021628896) 4.1 mmol/L 3.5-5 CL (test code = 0028964808) 104 mmol/L 98-108 CO2 TOTAL (test code = 2044361906) 22 mmol/L 23-31 L AGAP (test code = 1993080845) 2-16 BUN (test code = 5998107074) 7 mg/dL 7-23 GLUCOSE (test code = 1173188019) 114 mg/dL 70-110 H CREATININE (test code = 9408439804) 0.69 mg/dL 0.5-1.04 TOTAL BILI (test code = 0453591256) 0.4 mg/dL 0.1-1.1 CALCIUM (test code = 7079332051) 9.7 mg/dL 8.6-10.6 T PROTEIN (test code = 9130253853) 7.2 g/dL 6.3-8.2 ALBUMIN (test code = 0645136108) 4.6 g/dL 3.5-5 ALK PHOS (test code = 1492640987) 65 U/L 34-122 ALTv (test code = 1742-6) 15 U/L 5-35 AST(SGOT) (test code = 5780237542) 19 U/L 13-40 eGFR (test code = 6699011634) mL/min/1.73m2 WESLEY (test code = WESLEY) Association [...] imaging tests). Lab Interpretation (test code = 34289-6) Abnormal General acute hospital WITH [id number] 17:40:24* Test Item Value Reference Range Interpretation [...] 33.3 g/dL 31.6-35.1 RDW-SD (test code = 49870-9) 43.1 fL 39-49.9 RDW-CV (test code = 788-0) 13.2 % 12-15.5 PLT (test code = 777-3) See_Comment [Automated messa ge] The system which generated this result transmitted reference range: 166 - 358 10*3/?L. The reference range was not used to interpret this result as normal/abnormal. MPV (test code = 10932-1) 9.5 fL 9.5-12.9 NRBC/100 WBC (test code = 0126273173) See_Comment [Automated Hy[employer] Bio ssage] The system which generated this result transmitted reference range: 0.0 - 10.0 /100 WBCs. The reference range was not used to interpret this result as normal/abnormal. NRBC x10^3 (test code = 2373520128) See_Comment [Automated messa ge] The system which generated this result transmitted reference range: 10*3/?L. The reference range was not used to interpret this result as normal/abnormal. GRAN MAT (NEUT) % (test code = 770-8) 57.8 % IMM GRAN % (test code = 1312405661) 0.20 % LYMPH % (test code = 736-9) 30.8 % MONO % (test code = 5905-5) 5.1 % EOS % (test code = 713-8) 5.6 % BASO % (test code = 706-2) 0.5 % GRAN MAT x10^3(ANC) (test code = 2195591849) 3.61 10*3/uL 1.88-7.09 IMM GRAN x10^3 (test code = 4328147330) 0-0.06 LYMPH x10^3 (test code = 731-0) 1.92 10*3/uL 1.32-3.29 MONO x10^3 (test code = 742-7) 0.32 10*3/uL 0.33-0.92 L EOS x10^3 (test code = 711-2) 0.35 10*3/uL 0.03-0.39 BASO x10^3 (test code = 704-7) 0.03 10*3/uL 0.01-0.07 Lab Interpretation (test code = 22744-3) Abnormal [facility] [id number] 17:27:00* Test Item Value Reference Range Interpretation Comme nts POCT PREG (test code = 1605) negative On board controls acceptable with C Line (test code = 3574) present POCT PREG LOT # (test code = 3575) [id number] POCT PREG TEST DATE ( test code = 3576) Lab Interpretation (test cod e = 90048-4) [facility] 12[facility]* Test Item Value Reference Range Interpretation Comme nts LIPASE (test code = 9156163307) 41 U/L 0-220 Lab Interpretation (test cod e = 07439-3) Normal [facility] [id number] 10:57:00* Test Item Value Reference Range Interpretation Comme nts POCT PREG (test code = 1605) Negative On board controls acceptable with C Line (test code = 3574) Present POCT PREG LOT # (test code = 3575) [id number] POCT PREG TEST DATE ( test code = 3576) 03/12/2023 Lab Interpretation (test cod e = 15076-2) [facility]OL[facility] (NA, K, CL, CO2, GLUCOSE, BUN, CREATININE, CA)2022-01-18 10:56:51* Test Item Value Reference Range Interpretation Comme nts NA (test code = 2505056582) 137 mmol/L 135-145 K (test code = 9214085324) 4.6 mmol/L 3.5-5 Slight hemolysis CL (test code = 1580568286) 108 mmol/L 98-108 CO2 TOTAL (test code = 8321484493) 22 mmol/L 23-31 L AGAP (test code = 0075646937) 2-16 BUN (test code = 3587048337) 11 mg/dL 7-23 Slight hemolysis GLUCOSE (test code = 6297182746) 83 mg/dL 70-110 CREATININE (test code = 5693943300) 0.68 mg/dL 0.5-1.04 CALCIUM (test code = 1867719250) 8.8 mg/dL 8.6-10.6 eGFR (test code = 3860714798) mL/min/1.73m2 WESLEY (test code = WESLEY) Association [...] imaging tests). Lab Interpretation (test code = 16833-8) [facility]normal [facility] (29364[facility] (ALB,T.PRO,BILI T,BU/BC,ALT,AST,ALK PHOS)2022-01-18 10:56:51* Test Item Value Reference Range Interpretation Comme nts TOTAL BILI (test code = 0299318969) 0.6 mg/dL 0.1-1.1 BILI UNCON (test code = 4596802022) 0.1 mg/dL 0.1-1.1 BILI CONJ (test code = 9898442550) 0.0 mg/dL 0-0.3 T PROTEIN (test code = 4328003609) 8.6 g/dL 6.3-8.2 H ALBUMIN (test code = 7098177406) 5.1 g/dL 3.5-5 H ALK PHOS (test code = 5239136004) 79 U/L 34-122 ALTv (test code = 1742-6) 117 U/L 5-35 H AST(SGOT) (test code = 8354655470) 163 U/L 13-40 H Lab Interpretation (test cod e = 43926-7) Abnormal [facility], [id number] 10:54:25* Test Item Value Reference Range Interpretation Comme nts PREG SERUM (test code = 5229948247) Negative WESLEY (test code = WESLEY) Less than 10 IU/L. ?If low titer or ectopic is suspected, resubmit specimen in 48-72 hours. [facility] [id number] 10:40:49* Test Item Value Reference Range Interpretation Comme nts WBC (test code = 6690-2) See_Comment [Automated [employer]coma ge] The system which generated this result transmitted reference range: 4.30 - 11.10 10*3/?L. The reference range was not used to interpret this result as normal/abnormal. RBC (test code = 789-8) See_Comment [Automated [employer] ge] The system which generated this result [...] 33.6 g/dL 31.6-35.1 RDW-SD (test code = 27023-0) 45.3 fL 39-49.9 RDW-CV (test code = 788-0) 14.5 % 12-15.5 PLT (test code = 777-3) See_Comment [Automated [employer] ge] The system which generated this result transmitted reference range: 166 - 358 10*3/?L. The reference range was not used to interpret this result as normal/abnormal. MPV (test code = 53542-8) 9.5 fL 9.5-12.9 NRBC/100 WBC (test code = 4823080977) See_Comment [Automated [employer] ssage] The system which generated this result transmitted reference range: 0.0 - 10.0 /100 WBCs. The reference range was not used to interpret this result as normal/abnormal. NRBC x10^3 (test code = 7340088279) See_Comment [Automated [employer] Zilliant] The system which generated this result transmitted reference range: 10*3/?L. The reference range was not used to interpret this result as normal/abnormal. GRAN MAT (NEUT) % (test code = 770-8) 47.6 % IMM GRAN % (test code = 7744063655) 0.60 % LYMPH % (test code = 736-9) 39.9 % MONO % (test code = 5905-5) 5.9 % EOS % (test code = 713-8) 5.3 % BASO % (test code = 706-2) 0.7 % GRAN MAT x10^3(ANC) (test code = 9892934441) 4.45 10*3/uL 1.88-7.09 IMM GRAN x10^3 (test code = 2104020147) 0.06 10*3/uL 0-0.06 LYMPH x10^3 (test code = 731-0) 3.74 10*3/uL 1.32-3.29 H MONO x10^3 (test code = 742-7) 0.55 10*3/uL 0.33-0.92 EOS x10^3 (test code = 711-2) 0.50 10*3/uL 0.03-0.39 H BASO x10^3 (test code = 704-7) 0.07 10*3/uL 0.01-0.07 Lab Interpretation (test code = 26220-1) Abnormal [facility] [id number] 18:31:00* Test Item Value Reference Range Interpretation Comme nts POCT PREG (test code = 1605) Negative On board controls acceptable with C Line (test code = 3574) Yes POCT PREG LOT # (test code = 3575) POCT PREG TEST DATE ( test code = 3576) [facility] URINALYSIS W/O SPECIFIC [id number] 18:31:00* Test Item Value Reference Range Interpretation [...] 3257) Trace Negative - Negati ve [facility] Consult Notes Date/Time Note Provider Source 2024-03-11 [...] N/A 07/21/2019 Surgeon: Prasanna Vargas MD; Location: [facility] Labor and Delivery OR Location ESOPHAGOGASTRODUODENOSCOPY Upper 02/27/2024 Surgeon: Jas Buenrostro MD; Location: ENDOSCOPY (CS) OR LOCATION FLEXIBLE SIGMOIDOSCOPY (SHX) N/A 02/27/2024 Surgeon: Jas Buenrostro MD; Location: ENDOSCOPY (CS) OR LOCATION TUBAL LIGATION N/A 07/21/2019 Surgeon: Prasanna Vargas MD; Location: [facility] Labor [facility] Delivery OR Location [...] I agree with resident's note as written. [facility] 2024-02-26 10:25:08 Associated Order(s): CONSULT GASTROENTEROLOGY [...] N/A 07/21/2019 Surgeon: Prasanna Vargas MD; Location: [facility] Labor and Delivery OR Location TUBAL LIGATION N/A 07/21/2019 Surgeon: Prasanna Vargas MD; Location: [facility] Labor and Delivery OR Location [...] Slow IV Push Q6HPRN 0.5 mg at 02/25/243 melatonin (MELATIN) tablet 3 mg 3 mg Oral QHS 3 mg at 02/25/242 ondansetron (ZOFRAN (PF)) injection 4 mg 4 [...] Friends and Family: Not on file Attends [employer]: Not on file Active Member of [...] and flexible sigmoidoscopy tomorrow. JAS BUENROSTRO MD CORRUGATOR, DIVISION OF GASTROENTEROLOGY AND HEPATOLOGY [facility]. [facility] 2023-01-12 00:12:43 Associated Order(s): CONSULT GENERAL [...] symptomatic cholelithiasis 1.5 months ago at OSH ([place]). Pt states that she has had persistent RUQ pain with nausea and po intolerance along with intermittent chills and vomiting since surgery. Was seen by PCP and instructed to come to [facility] ED for further evaluation. [...] N/A 07/21/2019 Surgeon: Prasanna Vargas MD; Location: [facility] Labor and Delivery OR Location TUBAL LIGATION N/A 07/21/2019 Surgeon: Prasanna Vargas MD; Location: [facility] Labor and Delivery OR Location [...] skin once every month. 1 mL 3 Hgepcenfja-Cxkcsxirvqrng-Czon (FIORICET) 50-300-40 mg per capsule Take 1 [...] symptomatic cholelithiasis 1.5 months ago at OSH ([place]). Plan: Admission to [facility] service Consult IR for percutaneous drainage of [...] - Replete hypokalemia Mirella Vergara MD, PhD [employer] Trauma, Acute Care Surgery, and Surgical Critical Care In-house Pager: [phone] [facility] - Health History and [...] migraine. She was taken to ED in [place] after syncopal episode and was directed to return to [facility]. Bloody BM 3-4 days ago. Reports had exam for internal and external hemorrhoids in [place] - no hemorrhoids. Tried bentyl, pepcid, famotidine without success. Oral zofran does not help either. States that zofran, phenergan, tigan has not helped completely. Morphine has made it tolerable. Requesting to have IV benadryl to help her headaches. Patient was recently discharged on 03/05 from [facility] team, during this admission patient presented [...] note, patient had been admitted twice to [facility] earlier this month for similar symptoms. However, [facility] was capped at the time of admission. Ba Manuel DO [employer] | Department of Internal Medicine INTERNAL MEDICINE [facility] 2024-03-04 13:22:03 [facility] MEDICINE ADMIT H&P PCP: PATIENT DOES [...] as diarrhea. Patient was recently admitted to [facility] from 02/21-02/26 for same presentation. Inpatient EGD revealed esophagitis and gastritis with biopsies positive for H. 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 She states that she requested to be discharged after her son got Kawasaki's and she was able to tolerate her pain. Yesterday, she went to flower picker the bismuth quadruple therapy but the [...] reports going to her local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 Labor and Delivery OR Location TUBAL LIGATION N/A 07/21/2019 Surgeon: Prasanna Vargas MD; Location: [facility] Labor and Delivery OR Location [...] mask Anesthesia plan discussed with: patient or housing management representative Post-Operative Analgesia: routine analgesia & antiemetics Recovery Plan: PACU Additional comments: Pt seen and examined. Chart/ interval hx/ lab data reviewed. NPO status confirmed. Anesthetic plan d/w pt and she understands/ wishes to proceed. Consent obtained. [facility] 2024-02-27 06:15:00 Rec'd report from sheyla CURRIE. Pt AAO, RA, no ISO,denies overnight vomiting, rec'd enema about 0500 and have since been having BMs per RN. Bobbi Du RN [facility] 2024-02-26 13:07:55 Problem: Falls, Risk of [...] Not progressing as expected Tete Louis RN [facility] 2024-02-25 23:57:35 Problem: Pain Goal: Control [...] Outcome: Progressing as expected Cheryl Vásquez RN [facility] 2024-02-25 07:09:28 Problem: Pain Goal: Control [...] Outcome: Progressing as expected [facility] 2024-02-24 09:16:21 Uploaded to OnBase: [facility] ED Labs &CT Report Bobbi Jackson lll, PCP 02/24/2024 9:17 am T Bobbi Saini [facility] 2024-02-24 03:16:43 Problem: Pain Goal: Control of pain at or below patient's documented comfort goal Outcome: Progressing as expected Problem: Falls, Risk of Goal: Absence of falls Outcome: Progressing as expected Problem: Infection Risk Goal: Absence of infection Outcome: Progressing as expected Problem: Discharge Planning Goal: Adequate for discharge Outcome: Progressing as expected [facility] 2024-02-23 19:02:34 Problem: Pain Goal: Control [...] Adequate nutritional intake Outcome: Progressing as expected Sheldon Montague RN [facility] 2024-02-22 22:09:02 Problem: Pain Goal: Control [...] Outcome: Progressing as expected [facility] 2024-02-22 19:25:41 Pt to [place] [id number] at this time via [facility] transport in stretcher. Patient in possession of all belongings. VSS, Respirations even and unlabored, AAOx4, NAD noted. [facility] Dennise Kirkland RN [facility] 2024-02-22 19:09:18 Patient requesting medication for anxiety. Team paged at this time. [facility] 2024-02-22 19:00:00 Report received from Brent CURRIE. Previous treatment and plan of care discussed. Patient resting in bed. Bed locked and in lowest position. Call light within reach. RR even and unlabored. VSS. A&Ox4. NAD noted. Awaiting transport upstairs. [facility] 2024-02-22 18:32:24 Report given to RN. Patient to be admitted to [facility]. Patient verbalized understanding of plan of care. Patient A&O x4. VSS. NAD noted. Resp even and non labored. Skin warm and dry. IV patent. Belongings to be sent with patient. Awaiting transportation. [facility] Brent Solis RN [facility] 2024-02-22 17:45:00 Pt ambulatory to and from restroom with steady gait in NAD [facility] 2024-02-22 15:45:00 Pt laying in bed meds given per MAR waiting on bed place ment, pt A&Ox4 resp even and unlabored gcs 15 [facility] 2024-02-22 13:45:00 Pt resting comfortably, skin normal warm and dry, resp even and unlabored. VSS. Bed in lowest, locked position, side rails up. Call light within reach. Awaiting results. [facility] 2024-02-22 11:45:00 Pt sitting in bed A&Ox4 , skin normal warm and dry, resp even and unlabored. VSS. Bed in lowest, locked position, side rails up. Call light within reach. Awaiting results. [facility] 2024-02-22 09:45:00 Natanael Dyson is a [...] will continue to monitor. Awaiting further orders. [facility] 2024-02-22 09:31:00 Natanael Dyson is a 29 year old female c/o brayan umbical pain x 1 week. Pain worsening x 4 days. Seen at hospital in [place]. Reports no relief with zofran. Also reports vomiting/diarrhea. Reports blood in stool and emesis. No fever. Denies urinary. Denies . Alla Richardson RN [facility] 2024-02-22 09:27:00 [facility] Emergency Department Note Patient Name: Natanael Dyson Date of : 1995 29 year old female Treatment Room: Room/bed info not found Primary Care Physician: PATIENT DOES NOT HAVE A PCP Patient Escorted by: Self [9] Mode of Arrival: Personal means [1] EMS Treatment Prior to ED Arrival: MATERIAL CHASER treatment: None Travel and Exposure Screening: Symptoms [...] days ago she presented for evaluation in [place]; she was told that she was dehydrated and would have to see a outside physical damage appraiser; however, she says that she cannot afford this. History provided by: Patient circular sawyer helper used: No Past Medical History/Immunizations: Past Medical [...] N/A 07/21/2019 Surgeon: Prasanna Vargas MD; Location: [facility] Labor [facility] Delivery OR Location TUBAL LIGATION N/A 07/21/2019 Surgeon: Prasanna Vargas MD; Location: [facility] Labor and Delivery OR Location [...] 0.01 - 0.07 10*3/uL COMP. METABOLIC PANEL (20300) - Abnormal NA 137 135 - 145 [...] LIMITED CBC WITH DIFF COMP. METABOLIC PANEL (24834) LIPASE URINALYSIS TROPONIN I TEST, SERUM O2 [...] -- ED COURSE Diagnosis/Impression as of 02/22/24 5975 Vomiting and diarrhea Procedures: Procedures MDM: Medical [...] Observation Condition -- Comment Treatment Team: KORI [[id number]] Discharge Medications: Patient's Medications START taking these medications No medications on file CONTINUE taking these medications which have NOT CHANGED ALBUTEROL 90 MCG/ACTUATION INHALER Inhale 2 Puffs every 6 (six) hours as needed for Wheezing or Shortness of Breath. BACLOFEN 10 MG TABLET Take 1 tablet by mouth every 6 (six) hours as needed. WCTTANYSME-JQEZJBUXPBSHM-RECN (FIORICET) 50-300-40 MG PER CAPSULE Take 1 [...] medications on file Follow-up: - Admitting to [facility] Electronically signed by: Adriana Piedra MD Internal Medicine PGY-3 [place] Team Adriana Piedra MD 02/22/24 1425 Associated [...] persistent vomiting noted after. Case discussed with [facility] team. Plan made to admit for intractable vomiting and persistent abd pain. Pt had recent CT and allergic reaction. Will defer repeat CT to primary team if needed as she will need pre-treatment for allergy Diagnosis: Intractable vomiting Abdominal pain Plan: Admit to Internal Medicine Janett Lou INTERNAL MEDICINE [facility] 2023-08-27 16:08:07 TRANSITIONAL CARE MANAGEMENT ASSESSMENT 08/27/2023 Natanael Dyson [id number] Natanael Dyson is a 28 year old /White female was admitted on 08/23/[address] She was discharged on 08/24/23 with discharge disposition of HR- Routine Discharge. Admitting Physician: Roldan Walker Discharge Diagnosis: Cerebrovascular accident (CVA), unspecified mechanism [ Pt. Voiced her thoughts about [facility], not pleased with care provided. Plans to not f/u with [facility]. Pt. Inquired about results MY chart issue due to pt. Came in the hospital not alert. Instructed via the AVS it is under the other name Dominick Adamson 08/23/2023 - 08/24/2023 Neurology/Neurological Surgery ([address] Pt. Access via the AVS page 4 there. Pt. Has gone under this chart Karis with no results found. Gave HIM contact number for further assistance. No linked episodes TCM Wug-pboe-fp-face outreach documentation: Discharge Assessment Chart Assessed: 08/27/23 [...] Provider Department Dept Phone 09/12/2023 9:30 AM [facility] MOBILE MRI 1 (1.5T) [facility] Radiology & Imaging, [facility] [phone] Marlys Odell LVN [facility] 2023-08-26 13:35:01 TRANSITIONAL CARE MANAGEMENT ASSESSMENT 08/26/2023 Natanael Dyson [id number] Natanael Dyson is a 28 year old /White female was admitted on 08/23/23 to [facility], [address] She was discharged on 08/24/23 with discharge disposition of HR- Routine Discharge. Admitting Physician: Roldan Walker Discharge Diagnosis: Cerebrovascular accident (CVA), unspecified mechanism [I63.9] No contact. No linked episodes TCM Htr-zkbp-sv-face outreach documentation: Future Appointments: [facility] 2023-05-19 12:16:00 Pt given printed and [...] with steady gait, in no apparent distress. RING SOUS CHEF [facility] 2023-05-19 08:50:00 Patient came in with complaints of epigastric pain that radiates to her left shoulder associated with nausea and vomiting since a couple of weeks now. Patient states that she was worked up in [place] ER 2 weeks ago and found nothing wrong, just referred to a GI doctor but she hasn't seen one because she has no insurance. NNE Ruiz RN [facility] 2023-01-16 10:56:45 TRANSITIONAL CARE MANAGEMENT ASSESSMENT 01/16/2023 Natanael Dyson [id number] Natanael Dyson is a 27 year old /White female was admitted on 01/11/[address] She was discharged on 01/15/23 with discharge disposition of HR- Routine Discharge. Admitting Physician: Kun Steele Discharge Diagnosis: Postprocedural intraabdominal abscess [T81.43XA] Pt. Verbalized understanding discharge instructions. Plans to f/u with pcp. Linked Episodes Type: Episode: Status: Noted: Resolved: Last update: Updated by: TRANSITION OF CARE tcm Active 01/16/2023 01/16/2023 10:56 AM Marlys dOell LVN Comments: TCM Wam-lyqq-qx-face outreach documentation: Discharge Assessment Chart Assessed: 01/16/23 [...] with the names or descriptions of any ljer-oob-swqrnna or supplements you are currently taking?: Yes [...] Future Appointments: Marlys Odell LVN [facility] 2023-01-15 18:18:34 Patient is cleared for [...] Vero Crews RN Outcome: Adequate for discharge 01/15/20230 by Vero Crews RN Outcome: Progressing as expected [facility] 2023-01-15 15:08:00 Called outpatient pharmacy and spoke to Maggi. Stated pharmacy will bring patient's medications to her room within 45min to an hour. I Crews RN [facility] 2023-01-15 13:11:00 Problem: Infection Risk Goal: Absence of infection Outcome: Progressing as expected Problem: Pain Goal: Control of pain at or below patient's documented comfort goal Outcome: Progressing as expected Goal: Reduction in pain sensation Outcome: Progressing as expected Problem: Discharge Planning Goal: Adequate for discharge Outcome: Progressing as expected Goal: Effective communication Outcome: Progressing as expected T [facility] 2023-01-15 06:25:22 Problem: Infection Risk Goal: Absence of infection Outcome: Progressing as expected Problem: Pain Goal: Control of pain at or below patient's documented comfort goal Outcome: Progressing as expected Goal: Reduction in pain sensation Outcome: Progressing as expected Problem: Discharge Planning Goal: Adequate for discharge Outcome: Progressing as expected Goal: Effective communication Outcome: Progressing as expected Katy Means RN [facility] 2023-01-14 09:27:52 Problem: Infection Risk Goal: [...] expected T Charles Win RN [facility] 2023-01-13 22:20:47 Notified MD by page due to double dose of Tylenol being given. Per MD Brito no more Tylenol to be given for tonight. [facility] 2023-01-13 21:55:20 Problem: Infection Risk Goal: Absence of infection Outcome: Progressing as expected Problem: Pain Goal: Control of pain at or below patient's documented comfort goal Outcome: Progressing as expected Goal: Reduction in pain sensation Outcome: Progressing as expected Problem: Discharge Planning Goal: Adequate for discharge Outcome: Progressing as expected Goal: Effective communication Outcome: Progressing as expected [facility] 2023-01-13 08:20:43 Problem: Infection Risk Goal: Absence of infection Outcome: Progressing as expected Problem: Pain Goal: Control of pain at or below patient's documented comfort goal Outcome: Progressing as expected Goal: Reduction in pain sensation Outcome: Progressing as expected Problem: Discharge Planning Goal: Adequate for discharge Outcome: Progressing as expected Goal: Effective communication Outcome: Progressing as expected [facility] 2023-01-12 20:10:08 Problem: Infection Risk Goal: Absence of infection Outcome: Progressing as expected Problem: Pain Goal: Control of pain at or below patient's documented comfort goal Outcome: Progressing as expected Goal: Reduction in pain sensation Outcome: Progressing as expected Problem: Discharge Planning Goal: Adequate for discharge Outcome: Progressing as expected Goal: Effective communication Outcome: Progressing as expected [facility] 2023-01-12 09:28:38 Problem: Infection Risk Goal: Absence of infection Outcome: Progressing as expected Problem: Pain Goal: Control of pain at or below patient's documented comfort goal Outcome: Progressing as expected Goal: Reduction in pain sensation Outcome: Progressing as expected Problem: Discharge Planning Goal: Adequate for discharge Outcome: Progressing as expected Goal: Effective communication Outcome: Progressing as expected [facility] 2023-01-12 05:17:00 Problem: Infection Risk Goal: Absence of infection Outcome: Progressing as expected Problem: Pain Goal: Control of pain at or below patient's documented comfort goal Outcome: Progressing as expected Goal: Reduction in pain sensation Outcome: Progressing as expected Problem: Discharge Planning Goal: Adequate for discharge Outcome: Progressing as expected Goal: Effective communication Outcome: Progressing as expected [facility] 2023-01-12 01:43:06 Report to lisy CURRIE on 9C. Pt awaiting transport Melvin Villegas RN [facility] 2023-01-12 01:10:30 Attempted report, nurse unavailable, left callback number [facility] 2023-01-12 00:24:49 Surgery at bedside [facility] 2023-01-11 23:08:11 MD made aware of pt increased pain and nausea [facility] 2023-01-11 22:34:[address], warm blanket given [facility] 2023-01-11 22:18:[address] scan [facility] 2023-01-11 21:30:08 Natanael Dyson is a [...] liver. Denies vomiting, denies blood in stool. [facility] 2023-01-11 21:03:38 Natanael Dyson is a 27 year old female here today c/o abdominal pain x 2 days. Pt denies N/V but reports diarrhea. Pt reports "9/10" pain at this time. Pt reports pain travels down right side abdomen. Pt is A&Ox4, NAD Noted. RR even/unlabored. [facility] 2023-01-11 20:44:00 [facility] Emergency Department Note Patient Name: Natanael Dyson Date of : 1995 27 year old female Treatment Room: [address] [place] [address] Primary Care Physician: Luke Baker Patient Escorted by: Family [5] Mode of Arrival: Personal means [1] EMS Treatment Prior to ED Arrival: MATERIAL CHASER treatment: None Travel and Exposure Screening: Symptoms [...] 1 month ago that was done at [place]. Due to the worsening discomfort patient has, for further evaluation at [facility]. Patient states that during [...] when she sits up. Patient has discontinued H[place] and anxiety medication due to concern for her liver. She is only used a heating pad for her symptoms with minimal improvement. History provided by: Patient circular sawyer helper used: No Past Medical History/Immunizations: Past Medical [...] N/A 07/21/2019 Surgeon: Prasanna Vargas MD; Location: [facility] OR Location TUBAL LIGATION N/A 07/21/2019 Surgeon: Prasanna Vargas MD; Location: [facility] OR Location [...] 0 - 220 U/L COMP. METABOLIC PANEL (19877) TOTAL BETA HCG ASSAY EXTRA TUBE ORANGE EXTRA TUBE LAV EKG: If EKG completed, see Procedure Note. Orders and Treatments: Orders Placed This Encounter Procedures CT ABDOMEN PELVIS W CONTRAST POCT TEST URINALYSIS LIPASE COMP. METABOLIC PANEL (49395) TOTAL BHCG (QUANTITATIVE) Orders Placed This Encounter [...] mouth every 6 (six) hours as needed. [id number] (FIORICET) 50-300-40 MG PER CAPSULE Take 1 [...] in the Gallbladder fossa, post-recent cholecystectomy in [place]. General surgery was consulted and admitted the patient for further workup and management. [facility] 2022-12-03 08:57:03 Patient has an appointment 12/12/22. Blayne Silva RN 12/03/2022 8:57 AM Blayne Silva RN [facility]
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
[2024-08-03 11:11] VITALS: BP 134/90; TEMP 98.2; O2SAT 100
== END 2024-08-03 10:22 | disposition home or self-care (01) ==
LOC: ER 08:56
DX: S16.1XXA Strain of muscle, fascia and tendon at neck level, initial encounter (principal); R29.91 Unspecified symptoms and signs involving the musculoskeletal system; V49.49XA Driver injured in collision with other motor vehicles in traffic accident, initial encounter
CPT/HCPCS: 70450; 71250; 72125; 74176; 99284

== ENCOUNTER 2024-08-14 08:47 | Emergency (ER) | payer OTHER ==
--- OUTSIDE RECORDS SUMMARY | 2024-08-14 09:09 | XMS REPORT | Continuity of Care Document ---
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 dose, On 04/12/24 at 1300, STAT [facility] fentanyl PF (SUBLIMAZE (PF)) injection 50 mcg 2023-05 16:30: 00 04-12 16:26 :00 No 50ug 50 mcg, Slow IV Push, ONCE, 1 dose, On 04/12/24 at 1030, Routine [facility] fentanyl PF (SUBLIMAZE (PF)) injection 50 mcg 2023-05 15:45: 00 04-12 15:42 :00 No 50ug 50 mcg, Slow IV Push, ONCE, 1 dose, On 04/12/24 at 0945, Routine [facility] diphenhydrA MINE (BENADRYL) injection 25 mg 2023-05 14:18: 10 03-13 16:08 :09 No 25mg 25 mg, Intravenou s, Q6HPRN, Starting on Sat03/13/24 at 0918, Until Sat03/13/24 at 1108, Routine, Pain (scale 7-10) [facility] diazePAM (VALIUM) 10 mg tablet 2023-05 11:08: 09 Yes 10mg Take 1 tablet by mouth in the morning and 1 tablet in the evening. [facility] acetaminoph en ([facility]) IV piggyback 1,000 mg 2023-05 07:15: 00 03-13 07:05 :00 No 1000mg 1,000 mg, IV Piggyback, at 400 mL/hr Administer over 15 Minutes, ONCE, 1 dose, On Sat03/13/24 at 0215, Routine, Is the patient strict NPO and unable to tolerate oral medication s? Yes [facility] methylpredn isolone sod succ (SOLU-MEDRO L) injection 44.375 mg 2023-05 04:15: 00 03-13 05:06 :00 No 1mg/kg 44.375 mg (rounded from 44.5 mg = 1 mg/kg ?44.5 kg), Intravenou s, ONCE, 1 dose, On Sat03/12/24 at 2315, 2 mL [facility] iopamidol (ISOVUE 370-500 mL) injection 80 mL 2023-05 03:16: 00 03-13 03:00 :00 No [id number] 80mL 80 mL, Intravenou s, ONCE, 1 dose, On Sat03/12/24 at 2230, Routine [facility] diphenhydrA MINE (BENADRYL) injection 100 mg 2023-05 03:00: 00 03-13 05:06 :00 No [id number] 100mg 100 mg, Slow IV Push, ONCE, 1 dose, On Sat03/12/24 at 2200, STAT [facility] budesonide (PULMICORT RESPULE) nebulizer solution 1 mg 2023-05 01:00: 00 Yes 1mg 1 mg, Inhalation , BID, First dose on Sat03/12/24 at 2000, Until Discontinu ed, Routine [facility] amitriptyli ne 25 mg tablet 2023-05 00:00: 00 Yes [id number] 25mg Take 1 tablet by mouth at bedtime. [facility] budesonide 0.5 mg/2 mL nebulizer solution 2023-05 00:00: 00 06-06 05:59 :00 No [id number] 1mg Inhale 4 mL in the morning and 4 mL in the evening. Do all this for 84 days. [facility] diphenhydrA MINE 25 mg tablet 2023-05 00:00: 00 03-21 05:59 :00 No [id number] 25mg Take 1 tablet by mouth every 6 (six) hours as needed for Allergies for up to 7 days. [facility] methylPREDN ISolone sod succ (SOLU-MEDRO L (PF)) injection 40 mg 2023-05 23:45: 00 03-13 01:24 :00 No 40mg 40 mg, Intravenou s, ONCE, 1 dose, On Sat03/12/24 at 1845, 1 mL [facility] diphenhydrA MINE (BENADRYL) injection 50 mg 2023-05 23:45: 00 03-13 01:23 :00 No 50mg 50 mg, Intravenou s, ONCE, 1 dose, On Sat03/12/24 at 1845, Routine [facility] methylPREDN ISolone sod succ (SOLU-MEDRO L (PF)) injection 40 mg 2023-05 20:45: 00 03-12 20:53 :00 No 40mg 40 mg, Intravenou s, ONCE, 1 dose, On Sat03/12/24 at 1545, 1 mL [facility] diphenhydrA MINE (BENADRYL) injection 25 mg 2023-05 20:30: 00 03-12 20:58 :00 No 25mg 25 mg, Intravenou s, ONCE, 1 dose, On Sat03/12/24 at 1545, Routine [facility] diphenhydrA MINE (BENADRYL) injection 25 mg 2023-05 16:30: 00 03-12 16:16 :00 No 25mg 25 mg, Intravenou s, ONCE, 1 dose, On Sat03/12/24 at 1130, Routine [facility] diazePAM (VALIUM) injection 2 mg 2023-05 15:45: 00 03-13 13:38 :00 No 2mg 2 mg, Slow IV Push, BID, First dose on Kathie 03/12/24 at 1045, Until Discontinu ed, Routine [facility] Potassium Bicarb-Citr ic Acid (EFFER-K) effervescen t tablet 40 mEq 2023-05 03:45: 00 03-12 03:18 :00 No 40meq 40 mEq, Oral, ONCE, 1 dose, On Sat03/11/24 at 2245, Routine [facility] amitriptyli ne (ELAVIL) tablet 25 mg 2023-05 02:00: 00 Yes 25mg 25 mg, Oral, QHS, First dose on Sat03/11/24 at 2100, Until Discontinu ed, Routine [facility] budesonide (PULMICORT RESPULE) nebulizer solution 0.25 mg 2023-05 20:30: 00 03-12 15:40 :27 No .25mg 0.25 mg, Inhalation , BID, First dose (after last modificati on) on Sat03/11/24 at 1530, Until Discontinu ed, Routine [facility] morpHINE injection 2 mg 2023-05 18:00: 00 03-11 18:18 :00 No 2mg 2 mg, Slow IV Push, ONCE, 1 dose, On Sat03/11/24 at 1300, Routine [facility] proMETHazin e (PHENERGAN) 12.5 mg in NS 50 mL IV piggyback (CNR) 2023-05 16:08: 36 03-13 06:15 :30 No 12.5mg 12.5 mg, IV Piggyback, at 200 mL/hr Administer over 15 Minutes, Q4HPRN, Starting on Sat03/11/24 at 1108, Until Sat03/13/24 at 0115, [place], Nausea and Vomiting (N/V) [facility] diphenhydrA MINE (BENADRYL) injection 25 mg 2023-05 15:45: 00 03-11 15:14 :00 No 25mg 25 mg, Intravenou s, ONCE, 1 dose, On Sat03/11/24 at 1045, Routine [facility] morphine (2 mg/mL) injection 4 mg 2023-05 13:44: 13 03-11 17:55 :50 No 4mg 4 mg, Slow IV Push, Q4HPRN, Starting on Sat03/11/24 at 0844, Until Sat03/11/24 at 1255, Routine, Pain (scale 7-10) [facility] magnesium sulfate in water 4 gram/50 mL (8 %) IV Piggyback 4 g 2023-05 13:00: 00 03-11 16:09 :00 No 4g 4 g, IV Piggyback, at 25 mL/hr Administer over 120 Minutes, ONCE, 1 dose, On Sat03/11/24 at 0800, Routine [facility] tetracyclin e (ACHROMYCIN ) capsule 500 mg 2023-05 13:00: 00 03-11 16:07 :08 No 500mg 500 mg, Oral, QID, 112 doses, First dose on Sat03/11/24 at 0800, Last dose on Sat04/07/24 at 2000, [place], Reason for Anti-Infec tive: Documented Infection, Documented Infection Site: Abdominal, Duration of Therapy: 14 days [facility] metroNIDAZO LE (FLAGYL) tablet 500 mg 2023-05 13:00: 00 03-11 16:07 :08 No 500mg 500 mg, Oral, QID, First dose on Sat03/11/24 at 0800, Until Discontinu ed, Routine, Reason for Anti-Infec tive: Documented Infection, Documented Infection Site: Abdominal, Duration of Therapy: 14 days [facility] bismuth subsalicyla te (PEPTO BISMOL) chewable tablet 524 mg 2023-05 13:00: 00 03-11 16:07 :08 No 524mg 524 mg, Oral, QID, First dose on Sat03/11/24 at 0800, Until Discontinu ed [facility] lactated ringers IV infusion 1,000 mL 2023-05 08:30: 00 03-11 16:29 :00 No 1000mL at 125 mL/hr, 1,000 mL, IV Infusion, CONTINUOUS , Starting on Sat03/11/24 at 0330, Until Sat03/11/24 at 1129, Routine [facility] trimethoben zamide (TIGAN) injection 100 mg 2023-05 05:12: 20 03-13 16:08 :09 No 100mg 100 mg, Intramuscu lar, Q6HPRN, Starting on Sat03/11/24 at 0012, Until Sat03/13/24 at 1108, Routine, Nausea and Vomiting (N/V), alternate with zofran [facility] ondansetron (ZOFRAN (PF)) injection 4 mg 2023-05 03:42: 41 03-11 16:10 :43 No 4mg 4 mg, Slow IV Push, Q6HPRN, Starting on Sat03/10/24 at 2242, Until Sat03/11/24 at 1110, [place], Nausea and Vomiting (N/V) [facility] pantoprazol e (PROTONIX) injection 40 mg 2023-05 03:30: 00 03-13 16:08 :09 No 40mg 40 mg, Slow IV Push, Q12H, First dose on Sat03/10/24 at 2230, Until Discontinu ed [facility] morpHINE injection 4 mg 2023-05 03:21: 30 03-11 13:44 :25 No 4mg 4 mg, Slow IV Push, Q4HPRN, Starting on Sat03/10/24 at 2221, Until Sat03/11/24 at 0844, Routine, Pain (scale 7-10) [facility] acetaminoph en (TYLENOL) tablet 650 mg 2023-05 03:21: 25 03-13 16:08 :09 No 650mg [facility] morpHINE injection 4 mg 2023-05 02:00: 00 03-11 01:10 :00 No 4mg 4 mg, Slow IV Push, ONCE, 1 dose, On Sat03/10/24 at 2100, STAT [facility] trimethoben zamide (TIGAN) injection 100 mg 2023-05 02:00: 00 03-11 02:05 :00 No 100mg 100 mg, Intramuscu lar, ONCE, 1 dose, On Sat03/10/24 at 2100, Routine [facility] morpHINE injection 4 mg 2023-05 21:30: 00 03-10 22:20 :00 No 4mg 4 mg, Slow IV Push, ONCE, 1 dose, On Sat03/10/24 at 1630, STAT [facility] proMETHazin e (PHENERGAN) 25 mg in NS 50 mL IV piggyback (CNR) 2023-05 21:00: 00 03-10 22:30 :00 No 25mg 25 mg, IV Piggyback, at 200 mL/hr Administer over 15 Minutes, ONCE, 1 dose, On Sat03/10/24 at 1600, [place] [facility] diphenhydrA MINE (BENADRYL) injection 25 mg 2023-05 19:00: 00 03-10 19:12 :00 No 25mg 25 mg, Slow IV Push, ONCE, 1 dose, On Sat03/10/24 at 1400, STAT [facility] ondansetron (ZOFRAN (PF)) injection 4 mg 2023-05 18:30: 00 03-10 18:34 :00 No 4mg 4 mg, Slow IV Push, ONCE, 1 dose, On Sat03/10/24 at 1330, [place] [facility] diphenhydrA MINE:lidoca ine 2% viscous:maa lox 1:1:1 (FIRST-MOUT HWASH BLM) oral suspension 15 mL 2023-05 17:15: 00 03-10 18:34 :00 No 15mL 15 mL, Oral, ONCE, 1 dose, On Sat03/10/24 at 1215, Routine [facility] NaCl 0.9% (NS) bolus infusion 1,500 mL 2023-05 16:30: 03-11 00:19 :00 No 1500mL at 999 mL/hr, 1,500 mL, IV Infusion, ONCE, 1 dose, On Sat03/10/24 at 1130, [place] [facility] morpHINE injection 4 mg 2023-05 16:30: 00 03-10 16:33 :00 No 4mg 4 mg, Slow IV Push, ONCE, 1 dose, On Sat03/10/24 at 1130, STAT [facility] ondansetron (ZOFRAN (PF)) injection 4 mg 2023-05 15:30: 00 03-10 15:54 :00 No 4mg 4 mg, Slow IV Push, ONCE, 1 dose, On Sat03/10/24 at 1030, [place] [facility] pantoprazol e (PROTONIX) EC tablet 40 mg 2023-05 01:00: 00 03-05 22:06 :08 No 40mg 40 mg, Oral, BID, First dose on Sat03/05/24 at 2000, Until Discontinu ed, Routine [facility] bismuth subsalicyla te (PEPTO BISMOL) chewable tablet 524 mg 2023-05 17:00: 00 03-05 22:06 :08 No 524mg 524 mg, Oral, QID, 56 doses, First dose on Sat03/05/24 at 1200, Last dose on Sat03/19/24 at 0800, Routine [facility] tetracyclin e (ACHROMYCIN ) capsule 500 mg 2023-05 13:00: 00 03-05 22:06 :08 No 500mg 500 mg, Oral, QID, 56 doses, First dose on Sat03/05/24 at 0800, Last dose on Sat03/18/24 at 2000, [place], Reason for Anti-Infec tive: Documented Infection, Documented Infection Site: Abdominal, Duration of Therapy: 14 days [facility] metroNIDAZO LE (FLAGYL) tablet 500 mg 2023-05 11:30: 00 03-05 22:06 :08 No 500mg 500 mg, Oral, Q8H, 42 doses, First dose on Sat03/05/24 at 0630, Last dose on Sat03/18/24 at 2200, Routine, Reason for Anti-Infec tive: Documented Infection, Documented Infection Site: Abdominal, Duration of Therapy: 14 days [facility] pantoprazol e (PROTONIX) injection 40 mg 2023-05 01:00: 00 03-05 16:38 :50 No 40mg 40 mg, Slow IV Push, Q12H, First dose on Sat03/04/24 at 2000, Until Discontinu ed [facility] metroNIDAZO LE 500 mg tablet 2023-05 00:00: 00 Yes [id number] 500mg Take 1 tablet by mouth 4 (four) times daily. [facility] tetracyclin e 500 mg capsule 2023-05 00:00: 00 Yes [id number] 500mg Take 1 capsule by mouth 4 (four) times daily. [facility] bismuth subsalicyla te 525 mg Tab 2023-05 00:00: 00 Yes [id number] 525mg Take 525 mg by mouth 4 (four) times daily. [facility] omeprazole 20 mg capsule 2023-05 00:00: 00 Yes [id number] 20mg Take 1 capsule by mouth in the morning and 1 capsule in the evening. [facility] ondansetron 4 mg disintegrat ing tablet 2023-05 00:00: 00 Yes [id number] 4mg Take 1 tablet by mouth every 8 (eight) hours as needed for Nausea and Vomiting (N/V). [facility] enoxaparin (LOVENOX) injection 40 mg 2023-05 22:00: 00 03-05 22:06 :08 No 40mg 40 mg, Subcutaneo us, DAILY, First dose on Sat03/04/24 at 1700, Until Discontinu ed, Routine [facility] hydrOXYzine (ATARAX) tablet 10 mg 2023-05 20:02: 48 03-05 22:06 :08 No 10mg 10 mg, Oral, Q6HPRN, Starting on Sat03/04/24 at 1502, Until Kathie 03/05/24 at 1706, Routine, Anxiety [facility] morphine (2 mg/mL) injection 4 mg 2023-05 19:15: 05 03-05 19:09 :51 No 4mg 4 mg, Slow IV Push, Q6HPRN, Starting on Sat03/04/24 at 1415, Until Kathie 03/05/24 at 1409, Routine, Pain (scale 7-10) [facility] proMETHazin e (PHENERGAN) 12.5 mg in NS 50 mL IV piggyback (CNR) 2023-05 19:13: 41 03-05 22:06 :08 No 12.5mg 12.5 mg, IV Piggyback, at 200 mL/hr Administer over 15 Minutes, Q4HPRN, Starting on Sat03/04/24 at 1413, Until Kathie 03/05/24 at 1706, Routine, N/V unresponsi ve to Ondansetro n [facility] ondansetron (ZOFRAN (PF)) injection 4 mg 2023-05 19:10: 57 03-05 22:06 :08 No 4mg 4 mg, Slow IV Push, Q6HPRN, Starting on Sat03/04/24 at 1410, Until Kathie 03/05/24 at 1706, Routine, Nausea and Vomiting (N/V) [facility] HYDROcodone -acetaminop hen (NORCO 5) tablet 1 tablet 2023-05 19:10: 38 03-05 22:06 :08 No 1{tbl} 1 tablet, Oral, Q6HPRN, Starting on Sat03/04/24 at 1410, Until Kathie 03/05/24 at 1706, Routine, Pain (scale 4-6) [facility] acetaminoph en (TYLENOL) tablet 650 mg 2023-05 19:10: 34 03-05 22:06 :08 No 650mg [facility] morphine (2 mg/mL) injection 4 mg 2023-05 16:15: 00 03-04 16:19 :00 No 4mg 4 mg, Slow IV Push, ONCE, 1 dose, On Sat03/04/24 at 1115, [facility] ondansetron (ZOFRAN (PF)) injection 4 mg 2023-05 16:15: 00 03-04 16:19 :00 No 4mg 4 mg, Slow IV Push, ONCE, 1 dose, On Sat03/04/24 at 1115, [facility] morphine (2 mg/mL) injection 4 mg 2023-05 13:15: 00 03-04 13:57 :00 No 4mg 4 mg, Slow IV Push, ONCE, 1 dose, On Sat03/04/24 at 0815, STAT [facility] pantoprazol e (PROTONIX) injection 40 mg 2023-05 13:15: 00 03-04 14:04 :00 No 40mg 40 mg, Slow IV Push, ONCE, 1 dose, On Sat03/04/24 at 0815 [facility] NaCl 0.9% (NS) bolus infusion 1,000 mL 2023-05 13:15: 00 03-04 16:51 :00 No 1000mL at 999 mL/hr, 1,000 mL, IV Infusion, ONCE, 1 dose, On Sat03/04/24 at 0815, [facility] ondansetron (ZOFRAN (PF)) injection 4 mg 2023-05 12:15: 00 03-04 13:56 :00 No 4mg 4 mg, Slow IV Push, ONCE, 1 dose, On Sat03/04/24 at 0715, [facility] escitalopra m oxalate 20 mg tablet 2023-05 00:00: 00 Yes 20mg Take 1 tablet by mouth in the morning. [facility] eszopiclone 3 mg tablet 2023-05 00:00: 00 Yes 3mg Take 1 tablet by mouth at bedtime. [facility] bismuth subsalicyla te 525 mg Tab 2023-05 00:00: 00 03-05 00:00 :00 No [id number] 525mg Take 525 mg by mouth 4 (four) times daily for 14 days. [facility] metroNIDAZO LE 500 mg tablet 2023-05 00:00: 00 03-05 00:00 :00 No [id number] 500mg Take 1 tablet by mouth 4 (four) times daily for 14 days. [facility] tetracyclin e 500 mg capsule 2023-05 00:00: 00 03-05 00:00 :00 No [id number] 500mg Take 1 capsule by mouth 4 (four) times daily for 14 days. [facility] omeprazole 20 mg capsule 2023-05 00:00: 00 03-05 00:00 :00 No [id number] 20mg Take 1 capsule by mouth in the morning and 1 capsule in the evening. Do all this for 14 days. [facility] pantoprazol e (PROTONIX) EC tablet 40 mg 2023-05 16:45: 00 02-26 23:59 :22 No 40mg 40 mg, Oral, BID, First dose (after last modificati on) on Kathie 02/27/24 at 1145, Until Discontinu ed, Routine [facility] lactated ringers IV infusion 2023-05 15:19: 00 02-26 15:26 :52 No IV Infusion, CONTINUOUS PRN, Starting on Sat02/27/24 at 1019, Until Kathie 02/27/24 at 1026, Routine, Intra-op [facility] simethicone (GAS RELIEF (SIMETHICON E)) 40 mg/0.6 mL drops 2023-05 14:57: 00 02-26 16:34 :28 No PRN, Starting on Kathie 02/27/24 at 0957, Until Kathie 02/27/24 at 1134, Routine, Intra-op [facility] PHENYLephri ne 1000 mcg/10 mL in 0.9% NaCl syringe 2023-05 14:50: 00 02-26 15:26 :52 No Intravenou s, ONCE INTRA PROCEDURE, Starting on Kathie 02/27/24 at 0950, Until Kathie 02/27/24 at 1026, Routine, Intra-op [facility] dexmedeTOMI Dine (PRECEDEX) injection 2023-05 14:27: 00 02-26 15:26 :52 No Intravenou s, ONCE INTRA PROCEDURE, Starting on Kathie 02/27/24 at 0927, Until Kathie 02/27/24 at 1026, Routine, Intra-op [facility] propofoL IV infusion 2023-05 14:26: 00 02-26 15:26 :52 No IV Infusion, ONCE INTRA PROCEDURE, Starting on Kathie 02/27/24 at 0926, Until Kathie 02/27/24 at 1026, Routine, Intra-op [facility] lidocaine 1% (XYLOCAINE) 100 mg/10 mL (1 %) injection 2023-05 14:26: 00 02-26 15:26 :52 No Intravenou s, ONCE INTRA PROCEDURE, Starting on Kathie 02/27/24 at 0926, Until Kathie 02/27/24 at 1026, Routine, Intra-op [facility] FENTanyl (PF) (SUBLIMAZE) injection 2023-05 14:26: 00 02-26 15:26 :52 No Intravenou s, ONCE INTRA PROCEDURE, Starting on Kathie 02/27/24 at 0926, Until Kathie 02/27/24 at 1026, Routine, Intra-op [facility] midazolam (VERSED) injection 2023-05 14:24: 00 02-26 15:26 :52 No IV Push, ONCE INTRA PROCEDURE, Starting on Kathie 02/27/24 at 0924, Until Kathie 02/27/24 at 1026, Routine, Intra-op [facility] NaCl 0.9% (NS) IV infusion 2023-05 14:22: 00 02-26 15:26 :52 No IV Infusion, CONTINUOUS PRN, Starting on Kathie 24 at 0922, Until Sat02/27/24 at 1026, Routine, Intra-op [facility] sodium phosphates (READY-TO-U SE ENEMA) 19-7 gram/118 mL enema 1 Enema 2023-05 10:00: 00 02-26 10:05 :00 No 1{enema } 1 Enema, Rectal, ONCE, 1 dose, On Sat02/27/24 at 0500, Routine [facility] polyethylen e glycol 3350 powder 17 g 2023-05 01:00: 00 02-26 21:59 :19 No 17g 17 g, Oral, BID, First dose (after last modificati on) on Sat02/26/24 at 2000, Until Discontinu ed, Routine [facility] ondansetron 4 mg disintegrat ing tablet 2023-05 00:00: 00 03-05 00:00 :00 No [id number] 4mg Take 1 tablet by mouth every 8 (eight) hours as needed for Nausea and Vomiting (N/V). [facility] pantoprazol e 40 mg EC tablet 2023-05 00:00: 00 03-05 00:00 :00 No [id number] 40mg Take 1 tablet by mouth in the morning and 1 tablet in the evening. [facility] amitriptyli ne 25 mg tablet 2023-05 00:00: 00 03-04 00:00 :00 No [id number] 25mg Take 1 tablet by mouth at bedtime. [facility] acetaminoph en-codeine 300-30 mg tablet 2023-05 00:00: 00 02-26 00:00 :00 No [id number] 1{tbl} Take 1 tablet by mouth every 4 (four) hours as needed for Pain (scale 7-10) for up to 7 days. Indication s: acute pain [facility] simethicone (GAS RELIEF (SIMETHICON E)) chewable tablet 80 mg 2023-05 23:00: 00 02-26 21:59 :19 No 80mg 80 mg, Oral, PC+HS, First dose on Sat02/26/24 at 1800, Until Discontinu ed, Routine [facility] morphine (2 mg/mL) injection 2 mg 2023-05 20:22: 36 02-26 21:59 :19 No 2mg 2 mg, Slow IV Push, Q4HPRN, Starting on Sat02/26/24 at 1522, Until Kathie 02/27/24 at 1659, Routine, Pain (scale 4-6) [facility] morphine (2 mg/mL) injection 4 mg 2023-05 20:22: 32 02-26 21:59 :19 No 4mg 4 mg, Slow IV Push, Q4HPRN, Starting on Sat02/26/24 at 1522, Until Kathie 02/27/24 at 1659, Routine, Pain (scale 7-10) [facility] LORazepam (ATIVAN) injection 0.5 mg 2023-05 18:39: 21 02-26 21:59 :19 No .5mg 0.5 mg, Slow IV Push, Q6HPRN, Starting on Sat02/26/24 at 1339, Until Kathie 02/27/24 at 1659, Routine, Anxiety [facility] bisacodyL (DULCOLAX) suppository 10 mg 2023-05 18:17: 00 02-25 18:47 :00 No 10mg 10 mg, Rectal, ONCE NOW, 1 dose, On Sat02/26/24 at 1330, Routine [facility] acetaminoph en (OFIRMEV) IV piggyback 1,000 mg 2023-05 15:30: 00 02-25 15:03 :00 No 1000mg 1,000 mg, IV Piggyback, at 400 mL/hr Administer over 15 Minutes, ONCE, 1 dose, On Sat02/26/24 at 1030, Routine, Is the patient strict NPO and unable to tolerate oral medication s? Yes [facility] bisacodyL (DULCOLAX) tablet 5 mg 2023-05 14:30: 00 02-26 21:59 :19 No 5mg 5 mg, Oral, DAILY, First dose on Sat02/26/24 at 0930, Until Discontinu ed, Routine [facility] amitriptyli ne (ELAVIL) tablet 25 mg 2023-05 02:00: 00 02-26 23:59 :22 No 25mg 25 mg, Oral, QHS, First dose on Sat02/25/24 at 2100, Until Discontinu ed, Routine [facility] morphine (2 mg/mL) injection 4 mg 2023-05 18:49: 53 02-25 14:28 :08 No 4mg 4 mg, Slow IV Push, Q4HPRN, Starting on Sat02/25/24 at 1349, Until Sat02/26/24 at 0928, Routine, Pain (scale 7-10) [facility] morphine (2 mg/mL) injection 2 mg 2023-05 18:49: 15 02-25 14:28 :08 No 2mg 2 mg, Slow IV Push, Q4HPRN, Starting on Sat02/25/24 at 1349, Until Sat02/26/24 at 0928, Routine, Pain (scale 7-10) [facility] gadobenate dimeglumine (MULTIHANCE -10 mL) injection 9.08 mL 2023-05 17:30: 00 02-24 17:30 :00 No [id number] .2mL/kg 9.08 mL (0.2 mL/kg ?45.4 kg), Intravenou s, ONCE, 1 dose, On Sat02/25/24 at 1230, Routine [facility] LORazepam (ATIVAN) injection 1 mg 2023-05 17:00: 00 02-24 16:25 :00 No 1mg 1 mg, Slow IV Push, ONCE, 1 dose, On Sat02/25/24 at 1200, STAT [facility] polyethylen e glycol 3350 powder 17 g 2023-05 16:00: 00 02-25 14:24 :01 No 17g 17 g, Oral, DAILY, First dose on Sat02/25/24 at 1100, Until Discontinu ed, Routine [facility] lactated ringers IV infusion 1,000 mL 2023-05 13:15: 00 02-26 21:59 :19 No 1000mL at 125 mL/hr, 1,000 mL, IV Infusion, CONTINUOUS , Starting on Sat02/25/24 at 0815, Until Sat02/27/24 at 1659, Routine [facility] potassium chloride in water (KCL) 20 mEq/100 mL IV infusion 20 mEq 2023-05 13:00: 00 02-24 13:30 :00 No 20meq 20 mEq, IV Infusion, at 50 mL/hr Administer over 2 Hours, ONCE, 1 dose, On Sat02/25/24 at 0800, Routine [facility] melatonin (MELATIN) tablet 3 mg 2023-05 02:00: 00 02-26 21:59 :19 No 3mg 3 mg, Oral, QHS, First dose on Sat02/24/24 at 2100, Until Discontinu ed, Routine [facility] lactated ringers IV infusion 500 mL 2023-05 19:30: 00 02-24 09:54 :00 No 500mL at 999 mL/hr, 500 mL, IV Infusion, ONCE, 1 dose, On Sat02/24/24 at 1430, Routine [facility] Lidocaine (LIDOCARE) 4 % patch 1 Patch 2023-05 18:00: 00 02-24 05:15 :00 No 1{patch } 1 Patch, Topical, Administer over 12 Hours, ONCE, 1 dose, On Sat02/24/24 at 1300, Routine [facility] LORazepam (ATIVAN) injection 0.5 mg 2023-05 12:25: 30 02-25 18:39 :43 No .5mg 0.5 mg, Slow IV Push, Q6HPRN, Starting on Sat02/24/24 at 0725, Until Sat02/26/24 at 1339, Routine, Anxiety, Agitation [facility] diphenhydrA MINE (BENADRYL) injection 25 mg 2023-05 01:40: 29 02-23 14:54 :01 No 25mg 25 mg, Intravenou s, Q6HPRN, Starting on 02/23/24 at 2040, Until 02/24/24 at 0954, Routine, Nausea and Vomiting (N/V) [facility] LORazepam (ATIVAN) injection 0.5 mg 2023-05 01:39: 00 02-23 02:48 :00 No .5mg 0.5 mg, Slow IV Push, ONCE, 1 dose, On Sat02/23/24 at 2045, Routine [facility] diphenhydrA MINE (BENADRYL) injection 25 mg 2023-05 14:19: 13 02-23 01:14 :28 No 25mg 25 mg, Intravenou s, Q6HPRN, Starting on Sat02/23/24 at 0919, Until 02/23/24 at 2014, Routine, Nausea and Vomiting (N/V) [facility] ondansetron (ZOFRAN (PF)) injection 4 mg 2023-05 14:18: 38 02-26 21:59 :19 No 4mg 4 mg, Slow IV Push, Q6HPRN, Nausea and Vomiting (N/V), Starting on Sat02/23/24 at 0918, Doses of ondansetro n 16 mg and above need to be administer ed via IV piggyback. For Dose >=24mg ECG monitoring is advisable. [facility] pantoprazol e (PROTONIX) injection 40 mg 2023-05 11:53: 00 02-25 19:46 :39 No 40mg 40 mg, Slow IV Push, Q24H, First dose (after last modificati on) on Sat02/23/24 at 0700, Until Discontinu ed [facility] cariprazine (VRAYLAR) 1.5 mg capsule 2023-05 09:24: 25 Yes 1.5mg Take 1 capsule by mouth in the morning. [facility] LORazepam 0.5 mg tablet 2023-05 09:24: 25 Yes .5mg Take 1 tablet by mouth. [facility] diphenhydrA MINE (BENADRYL) injection 25 mg 2023-05 03:57: 18 02-22 14:19 :23 No 25mg 25 mg, Intravenou s, Q4HPRN, Starting on 02/22/24 at 2257, Until 02/23/24 at 0919, Routine, Nausea and Vomiting (N/V) [facility] heparin (porcine) injection 5,000 Units 2023-05 01:00: 00 02-26 21:59 :19 No 5000U 5,000 Units, Subcutaneo us, Q12H, First dose on 02/22/24 at 2000, Until Discontinu ed, Routine [facility] morphine (2 mg/mL) injection 4 mg 2023-05 19:33: 18 02-24 15:57 :38 No 4mg 4 mg, Slow IV Push, Q4HPRN, Starting on 02/22/24 at 1433, Until 02/25/24 at 1057, Routine, Pain (scale 7-10) [facility] proMETHazin e (PHENERGAN) 25 mg in NS 50 mL IV piggyback (CNR) 2023-05 19:33: 05 02-22 14:19 :00 No 25mg 25 mg, IV Piggyback, at 200 mL/hr Administer over 15 Minutes, Q4HPRN, Starting on 02/22/24 at 1433, Until 02/23/24 at 0919, [place], Nausea and Vomiting (N/V) [facility] metoprolol tartrate 50 mg tablet 2023-05 19:26: 59 02-26 00:00 :00 No 50mg Take 1 tablet by mouth in the morning and 1 tablet in the evening. [facility] escitalopra m oxalate (LEXAPRO) 10 mg tablet 2023-05 19:26: 59 02-26 00:00 :00 No 10mg Take 1 tablet by mouth in the morning. [facility] morphine (2 mg/mL) injection 4 mg 2023-05 17:45: 00 02-21 18:20 :00 No 4mg 4 mg, Slow IV Push, ONCE, 1 dose, On 02/22/24 at 1245, STAT [facility] proMETHazin e (PHENERGAN) 25 mg in NS 50 mL IV piggyback (CNR) 2023-05 16:45: 00 02-21 17:33 :00 No 25mg 25 mg, IV Piggyback, at 200 mL/hr Administer over 15 Minutes, ONCE, 1 dose, On 02/22/24 at 1145, [place] [facility] morphine (2 mg/mL) injection 4 mg 2023-05 16:00: 00 02-21 16:06 :00 No 4mg 4 mg, Slow IV Push, ONCE, 1 dose, On 02/22/24 at 1100, STAT [facility] famotidine (PEPCID (PF)) injection 20 mg 2023-05 15:00: 00 02-21 15:35 :00 No 20mg 20 mg, Slow IV Push, ONCE, 1 dose, On 02/22/24 at 1000, [facility] ondansetron (ZOFRAN (PF)) injection 4 mg 2023-05 15:00: 00 02-21 15:34 :00 No 4mg 4 mg, Slow IV Push, ONCE, 1 dose, On 02/22/24 at 1000, [place] [facility] NaCl 0.9% (NS) bolus infusion 1,000 mL 2023-05 15:00: 00 02-21 18:06 :00 No 1000mL at 999 mL/hr, 1,000 mL, IV Infusion, ONCE, 1 dose, On 02/22/24 at 1000, STAT [facility] buPROPion XL 150 mg 24 hr tablet 01-22 00:00: 00 Yes 150mg Take 1 tablet by mouth every morning. [facility] cholestyram ine 4 gram powder 01-20 00:00: 00 Yes MIX AND DRINK 1 SCOOP BY MOUTH DAILY [facility] busPIRone 7.5 mg tablet 01-19 00:00: 00 Yes 7.5mg Take 1 tablet by mouth in the morning and 1 tablet in the evening. [facility] metoprolol tartrate 50 mg tablet 08-25 11:55: 42 Yes 50mg Take 1 tablet by mouth in the morning and 1 tablet in the evening. [facility] escitalopra m oxalate (LEXAPRO) 10 mg tablet 08-25 11:55: 42 Yes 10mg Take 1 tablet by mouth in the morning. [facility] divalproex ER 250 mg 24 hr tablet 08-23 00:00: 00 11-22 04:59 :00 No [id number] 250mg Take 1 tablet by mouth in the morning and 1 tablet in the evening. Do all this for 90 days. [facility] acetaminoph en-codeine 300-30 mg tablet 08-23 00:00: 00 08-31 04:59 :00 No [id number] 1{tbl} Take 1 tablet by mouth every 6 (six) hours as needed for Pain (scale 4-6) or Pain (scale 7-10) for up to 7 days. Indication s: acute pain [facility] cefTRIAXone (ROCEPHIN) 1,000 mg in NaCl 0.9% (NS) 100 mL MINI-BAG 05-19 16:45: 00 05-19 17:24 :00 No 1000mg 1,000 mg, IV Piggyback, ONCE, 1 dose, On 05/19/23 at 1045, Administer over 30 Minutes, 100 mL
Reas on for Anti-Infec tive: Documented Infection< br>Documen renata Infection Site: Urine
D uration of Therapy: Other (see Comments) [facility] morpHINE (4 mg/mL) injection 4 mg 05-19 16:45: 00 05-19 16:53 :00 No 4mg 4 mg, Slow IV Push, ONCE, 1 dose, On 05/19/23 at 1045, STAT [facility] NaCl 0.9% (NS) bolus infusion 1,000 mL 05-19 16:00: 00 05-19 17:00 :00 No 1000mL at 999 mL/hr, 1,000 mL, IV Infusion, ONCE, 1 dose, On 05/19/23 at 1000, [facility] iopamidol (ISOVUE 370-500 mL) injection 80 mL 05-19 15:50: 00 05-19 16:15 :00 No [id number] 80mL 80 mL, Intravenou s, ONCE, 1 dose, On 05/19/23 at 1015, Routine [facility] dicyclomine (BENTYL) tablet 20 mg 05-19 15:45: 00 05-19 16:09 :00 No 20mg 20 mg, Oral, ONCE, 1 dose, On 05/19/23 at 0945, [facility] ondansetron (ZOFRAN (PF)) injection 4 mg 05-19 15:15: 00 05-19 15:50 :00 No 4mg 4 mg, Slow IV Push, ONCE, 1 dose, On 05/19/23 at 0915, [facility] maalox:diph enhydrAMINE :lidocaine 2 % viscous 1:1:1 ([facility]) oral suspension 15 mL 05-19 15:15: 00 05-19 15:49 :00 No 15mL 15 mL, Oral, ONCE, 1 dose, On 05/19/23 at 0915, Routine [facility] famotidine (PEPCID (PF)) injection 20 mg 05-19 15:15: 00 05-19 15:51 :00 No 20mg 20 mg, Slow IV Push, ONCE, 1 dose, On 05/19/23 at 0915, [facility] ondansetron 4 mg disintegrat ing tablet 05-19 00:00: 00 02-26 00:00 :00 No [id number] 4mg Take 1 tablet by mouth every 8 (eight) hours as needed for Nausea and Vomiting (N/V). [facility] sucralfate 1 gram tablet 05-19 00:00: 00 06-19 05:59 :00 No [id number] 1g Take 1 tablet by mouth before meals and at bedtime for 30 days. [facility] pantoprazol e 40 mg EC tablet 05-19 00:00: 00 06-19 05:59 :00 No [id number] 40mg Take 1 tablet by mouth in the morning for 30 days. [facility] cefdinir 300 mg capsule 05-19 00:00: 00 05-27 05:59 :00 No [id number] 300mg Take 1 capsule by mouth every 12 (twelve) hours for 7 days. [facility] morpHINE (2 mg/mL) injection 2 mg 01-15 19:15: 00 01-15 18:49 :00 No 2mg 2 mg, Slow IV Push, ONCE, 1 dose, On Sat01/15/23 at 1415, Routine [facility] ondansetron (ZOFRAN) tablet 4 mg 01-15 18:15: 01-15 22:02 :00 No 4mg 4 mg, Oral, ONCE, 1 dose, On Sat01/15/23 at 1315, Routine [facility] ondansetron 4 mg tablet 01-15 00:00: 02-26 00:00 :00 No [id number] 4mg Take 1 tablet by mouth every 8 (eight) hours as needed for Nausea and Vomiting (N/V). [facility] HYDROcodone -acetaminop hen 5-325 mg tablet 01-15 00:00: 00 01-23 04:59 :00 No [id number] 1{tbl} Take 1 tablet by mouth every 4 (four) hours as needed for Pain (scale 4-6) for up to 7 days. Indication s: acute pain [facility] morpHINE (2 mg/mL) injection 2 mg 01-14 16:11: 23 01-15 11:49 :59 No 2mg 2 mg, Slow IV Push, Q4HPRN, Starting on Sat01/14/23 at 1111, Until Sat01/15/23 at 0649, Routine, Pain (scale 7-10) [facility] methocarbam oL (ROBAXIN) tablet 500 mg 01-14 13:00: 00 Yes 500mg 500 mg, Oral, QID, First dose on Sat01/14/23 at 0800, Until Discontinu ed, Routine [facility] celecoxib (CELEBREX) capsule 100 mg 01-14 13:00: 00 Yes 100mg 100 mg, Oral, BID MEALS, First dose on Sat01/14/23 at 0800, Until Discontinu ed, [facility] (NEURONTIN[facility] capsule 300 mg 01-14 01:30: 00 Yes 300mg 300 mg, Oral, TID, First dose on [place] 01/13/23 at 2030, Until Discontinu ed, Routine [facility] acetaminoph en (TYLENOL) tablet 1,000 mg 01-14 01:30: 00 Yes 1000mg 1,000 mg, Oral, Q8H, First dose (after last modificati on) on [place] 01/13/23 at 2030, Until Discontinu ed, Routine [facility] scopolamine transdermal (TRANSDERM- SCOP) patch 1.5 mg 01-13 00:30: 00 Yes 1.5mg 1.5 mg, Topical, Administer over 72 Hours, Q72H, First dose on [facility] 01/12/23 at 1930, Until Discontinu ed, Routine [facility] enoxaparin (LOVENOX) injection 40 mg 01-12 22:00: 00 Yes 40mg 40 mg, Subcutaneo us, DAILY, First dose on Sat01/12/23 at 1700, Until Discontinu ed, Routine [facility] FENTanyl PF (SUBLIMAZE (PF)) injection 100 mcg 01-12 20:30: 00 01-12 20:30 :00 No [id number] 100ug 100 mcg, Slow IV Push, ONCE, 1 dose, On 01/12/23 at 1530, Routine [facility] proMETHazin e (PHENERGAN) 25 mg in NS 50 mL IV piggyback (CNR) 01-12 17:11: 31 01-15 14:12 :44 No 25mg 25 mg, IV Piggyback, at 200 mL/hr Administer over 15 Minutes, Q4HPRN, Starting on Sat01/12/23 at 1211, Until Tu01/15/23 at 0912, Routine, Nausea and Vomiting (N/V) [facility] piperacilli n-tazobacta m (ZOSYN) 3.375 [...] Abdominal< br>Duratio n of Therapy: 7 days [facility] pantoprazol e (PROTONIX) EC tablet 40 mg 01-12 14:00: 00 Yes 40mg 40 mg, Oral, DAILY, First dose on 01/12/23 at 0900, Until Discontinu ed, Routine [facility] KCL (KLOR-CON M20) tablet 40 mEq 01-12 09:30: 00 01-12 09:25 :00 No 40meq 40 mEq, Oral, ONCE, 1 dose, On 01/12/23 at 0430, Routine [facility] diphenhydrA MINE (BENADRYL) tablet 25 mg 01-12 08:31: 43 Yes 25mg 25 mg, Oral, QHSPRN, Starting on 01/12/23 at 0331, Until Discontinu ed, Routine, Itching, Sleep [facility] lactated ringers IV infusion 1,000 mL 01-12 08:15: 00 01-15 11:48 :29 No 1000mL at 50 mL/hr, 1,000 mL, IV Infusion, CONTINUOUS , Starting on 01/12/23 at 0315, Until 01/15/23 at 0648, Routine [facility] piperacilli n-tazobacta m (ZOSYN) 3.375 g in NaCl 0.9% (NS) 100 mL MINI-BAG 01-12 06:45: 00 01-12 08:43 :00 No 3.375g 3.375 g, IV Piggyback, ONCE, 1 dose, On 01/12/23 at 0145, Administer over 30 Minutes, 100 mL
Reas on for Anti-Infec tive: Documented Infection< br>Documen renata Infection Site: Abdominal< br>Duratio n of Therapy: 7 days [facility] lactated ringers IV infusion 1,000 mL 01-12 06:00: 00 01-12 08:13 :38 No 1000mL at 100 mL/hr, 1,000 mL, IV Infusion, CONTINUOUS , Starting on Sat01/12/23 at 0100, Until 01/12/23 at 0313, Routine [facility] morpHINE (4 mg/mL) injection 4 mg 01-12 05:49: 22 01-14 05:48 :22 No 4mg 4 mg, Slow IV Push, Q4HPRN, Starting on 01/12/23 at 0049, Until 01/14/23 at 0048, Routine, Pain (scale 7-10) [facility] HYDROcodone -acetaminop hen (NORCO 5) 5-325 mg tablet 1 tablet 01-12 05:49: 18 Yes 1{tbl} 1 tablet, Oral, Q4HPRN, Starting on 01/12/23 at 0049, Until Discontinu ed, Routine, Pain (scale 4-6) [facility] ondansetron (ZOFRAN (PF)) injection 4 mg 01-12 05:49: 11 01-15 17:31 :12 No 4mg 4 mg, Slow IV Push, Q6HPRN, Starting on 01/12/23 at 0049, Until 01/15/23 at 1231, Routine, Nausea and Vomiting (N/V) [facility] ondansetron (ZOFRAN (PF)) injection 4 mg 01-12 04:45: 00 01-12 04:45 :00 No 4mg 4 mg, Slow IV Push, ONCE, 1 dose, On Sat01/11/23 at 2345, [place] [facility] morpHINE (4 mg/mL) injection 4 mg 01-12 04:45: 00 01-12 04:45 :00 No 4mg 4 mg, Slow IV Push, ONCE, 1 dose, On Sat01/11/23 at 2345, STAT [facility] proMETHazin e (PHENERGAN) 25 mg in NS 50 mL IV piggyback (CNR) 01-12 04:45: 00 01-12 06:00 :00 No 25mg 25 mg, IV Piggyback, at 200 mL/hr Administer over 15 Minutes, ONCE, 1 dose, On Sat01/11/23 at 2345, [place] [facility] iopamidol (ISOVUE 370-500 mL) injection 80 mL 01-12 03:33: 00 01-12 03:25 :00 No [id number] 80mL 80 mL, Intravenou s, ONCE, 1 dose, On Sat01/11/23 at 2245, Routine [facility] maalox:diph enhydrAMINE :lidocaine 2 % viscous 1:1:1 ([facility]) oral suspension 15 mL 01-12 03:30: 00 01-12 03:07 :00 No 15mL 15 mL, Oral, ONCE, 1 dose, On Sat01/11/23 at 2230, Routine [facility] morpHINE (4 mg/mL) injection 4 mg 01-12 03:30: 00 01-12 03:05 :00 No 4mg 4 mg, Slow IV Push, ONCE, 1 dose, On Sat01/11/23 at 2230, [facility] NaCl 0.9% (NS) bolus infusion 1,000 mL 01-12 03:30: 00 01-12 03:04 :00 No 1000mL at 999 mL/hr, 1,000 mL, IV Infusion, ONCE, 1 dose, On Sat01/11/23 at 2230, [facility] ondansetron (ZOFRAN (PF)) injection 4 mg 01-12 03:00: 00 01-12 03:05 :00 No 4mg 4 mg, Slow IV Push, ONCE, 1 dose, On Sat01/11/23 at 2200, [facility] ibuprofen (IBU) tablet 600 mg 11-21 22:15: 00 11-21 21:44 :00 No 600mg 600 mg, Oral, ONCE, 1 dose, On Sat11/21/22 at 1715, [facility] butalbital- acetaminoph en-caff (ESGIC) 50-325-40 mg tablet 1 tablet 11-21 21:30: 00 11-21 21:39 :00 No 1{tbl} 1 tablet, Oral, ONCE, 1 dose, On Sat11/21/22 at 1630, [facility] ciprofloxac in HCl 500 mg tablet 11-11 00:00: 00 02-26 00:00 :00 No TAKE 1 TABLET BY MOUTH EVERY 12 HOURS FOR 7 DAYS [facility] methocarbam oL 750 mg tablet 11-07 00:00: 00 Yes 750mg Take 1 tablet by mouth 2 (two) times daily as needed. [facility] methocarbam oL 750 mg tablet 11-07 00:00: 00 02-26 00:00 :00 No 1{tbl} Take 1 tablet by mouth 2 (two) times daily as needed. [facility] baclofen 10 mg tablet 2022-0 6-17 00:00: 00 Yes 10mg Take 1 tablet by mouth every 6 (six) hours as needed. [facility] baclofen 10 mg tablet 2022-0 6-17 00:00: 00 02-26 00:00 :00 No 1{tbl} Take 1 tablet by mouth every 6 (six) hours as needed. [facility] tiZANidine 4 mg tablet 2022-0 6-14 00:00: 00 Yes 4mg Take 1 tablet by mouth every 6 (six) hours as needed. [facility] tiZANidine 4 mg tablet 2022-0 6-14 00:00: 00 02-26 00:00 :00 No 1{tbl} Take 1 tablet by mouth every 6 (six) hours as needed. [facility] traZODone 50 mg tablet 2022-0 6-12 00:00: 00 Yes 50mg Take 1 tablet by mouth at bedtime. [facility] traZODone 50 mg tablet 2022-0 6-12 00:00: 00 02-26 00:00 :00 No 1{tbl} Take 1 tablet by mouth at bedtime. [facility] hydrOXYzine 50 mg tablet 2022-0 5-23 00:00: 00 Yes 50mg Take 1 tablet by mouth every 6 (six) hours as needed. [facility] hydrOXYzine 50 mg tablet 2022-0 5-23 00:00: 00 02-26 00:00 :00 No 1{tbl} Take 1 tablet by mouth every 6 (six) hours as needed. [facility] mirtazapine 15 mg tablet 2022-0 5-12 00:00: 00 02-26 00:00 :00 No 15mg Take 1 tablet by mouth at bedtime. [facility] meloxicam 15 mg tablet 2022-0 5-09 00:00: 00 Yes 15mg Take 1 tablet by mouth in the morning. [facility] meloxicam 15 mg tablet 5-09 00:00: 00 02-26 00:00 :00 No 1{tbl} Take 1 tablet by mouth in the morning. [facility] verapamil SR 120 mg ER tablet -08 00:00: 00 Yes 120mg Take 1 tablet by mouth in the morning. [facility] verapamil SR 120 mg ER tablet 09-17 00:00: 00 02-26 00:00 :00 No 1{tbl} Take 1 tablet by mouth in the morning. [facility] OLANZapine 10 mg tablet 09-06 00:00: 00 02-26 00:00 :00 No 10mg Take 1 tablet by mouth in the morning. [facility] cloNIDine 0.1 mg tablet 09-06 00:00: 00 02-26 00:00 :00 No TAKE 1-2 TABLETS BY MOUTH AT BEDTIME NEEDED FOR SLEEP AND ANXIETY [facility] NaCl 0.9% (NS) bolus infusion 1,000 mL 09-05 18:15: 00 09-05 18:08 :00 No 1000mL at 999 mL/hr, 1,000 mL, IV Infusion, ONCE, 1 dose, On Sat09/05/22 at 1315, STAT [facility] acetaminoph en (TYLENOL) tablet 650 mg 09-05 17:30: 00 09-05 17:24 :00 No 650mg 650 mg, Oral, ONCE, 1 dose, On Sat09/05/22 at 1230, [place] [facility] ondansetron (ZOFRAN (PF)) injection 4 mg 09-05 17:15: 00 09-05 17:23 :00 No 4mg 4 mg, Slow IV Push, ONCE, 1 dose, On Sat09/05/22 at 1215, [place] [facility] magnesium sulfate in water 2 gram/50 mL (4 %) infusion 2 g 09-05 16:15: 00 09-05 16:10 :00 No 2g 2 g, IV Piggyback, Administer over 30 Minutes, ONCE, 1 dose, On Sat09/05/22 at 1115, Routine [facility] diphenhydrA MINE (BENADRYL) injection 25 mg 09-05 16:00: 00 09-05 16:01 :00 No 25mg 25 mg, Slow IV Push, ONCE, 1 dose, On Sat09/05/22 at 1100, STAT [facility] ketorolac (TORADOL) injection 30 mg 09-05 15:30: 00 09-05 14:38 :00 No 30mg 30 mg, Slow IV Push, ONCE, 1 dose, On Sat09/05/22 at 1030, Routine [facility] NaCl 0.9% (NS) bolus infusion 1,000 mL 09-05 15:00: 00 09-05 17:12 :00 No 1000mL at 999 mL/hr, 1,000 mL, IV Infusion, ONCE, 1 dose, On Sat09/05/22 at 1000, STAT [facility] methylpredn isolone sod succ (SOLU-MEDRO L) injection 125 mg 09-05 14:45: 00 09-05 14:35 :00 No 125mg 125 mg, Intravenou s, ONCE, 1 dose, On Sat09/05/22 at 0945, 2 mL [facility] butalbital- acetaminoph en-caff (ESGIC) 50-325-40 mg tablet 1 tablet 09-05 14:00: 00 09-05 14:34 :00 No 1{tbl} 1 tablet, Oral, ONCE, 1 dose, On Sat09/05/22 at 0900, [place] [facility] diphenhydrA MINE (BENADRYL) injection 25 mg 09-05 14:00: 00 09-05 14:39 :00 No 25mg 25 mg, Slow IV Push, ONCE, 1 dose, On Sat09/05/22 at 0900, STAT [facility] proMETHazin e (PHENERGAN) 12.5 mg in NaCl 0.9% (NS) 50 mL IV piggyback 09-05 14:00: 00 09-05 14:40 :00 No 12.5mg 12.5 mg, IV Piggyback, ONCE, 1 dose, On Sat09/05/22 at 0900, [place] [facility] carvediloL 25 mg tablet 09-05 00:00: 00 02-26 00:00 :00 No [id number] 25mg Take 1 tablet by mouth in the morning and 1 tablet in the evening. Take with meals. [facility] losartan 50 mg tablet 09-05 00:00: 00 02-26 00:00 :00 No [id number] 50mg Take 1 tablet by mouth in the morning and 1 tablet in the evening. [facility] ibuprofen 800 mg tablet 08-05 00:00: 00 02-26 00:00 :00 No 800mg Take 1 tablet by mouth 3 (three) times daily as needed. [facility] cyclobenzap rine 10 mg tablet 08-05 00:00: 00 02-26 00:00 :00 No 10mg Take 1 tablet by mouth 3 (three) times daily as needed. [facility] maalox:diph enhydrAMINE :lidocaine 2 % viscous 1:1:1 ([facility]) oral suspension 15 mL 08-01 00:45: 00 08-01 00:44 :00 No 15mL 15 mL, Oral, ONCE, 1 dose, On Sat07/31/22 at 1945, [place] [facility] ketorolac (TORADOL) injection 15 mg 08-01 00:15: 00 08-01 00:44 :00 No 15mg 15 mg, Slow IV Push, ONCE, 1 dose, On Sat07/31/22 at 1915, Routine [facility] ondansetron (ZOFRAN (PF)) injection 4 mg 08-01 00:15: 00 08-01 00:46 :00 No 4mg 4 mg, Slow IV Push, ONCE, 1 dose, On Sat07/31/22 at 1915, [place] [facility] famotidine (PEPCID (PF)) injection 20 mg 08-01 00:15: 00 08-01 00:46 :00 No 20mg 20 mg, Slow IV Push, ONCE, 1 dose, On Sat07/31/22 at 1915, [place] [facility] ondansetron 4 mg disintegrat ing tablet 07-31 00:00: 00 05-19 00:00 :00 No [id number] 4mg Take 1 tablet by mouth every 8 (eight) hours as needed for Nausea and Vomiting (N/V). [facility] sucralfate 1 gram tablet 07-31 00:00: 00 05-19 00:00 :00 No [id number] 1g Take 1 tablet by mouth before meals and at bedtime. [facility] pantoprazol e 40 mg EC tablet 07-31 00:00: 00 08-15 04:59 :00 No [id number] 40mg Take 1 tablet by mouth in the morning for 14 days. [facility] tamsulosin 0.4 mg 24 hr capsule 07-25 00:00: 00 Yes .4mg Take 1 capsule by mouth in the morning. [facility] tamsulosin 0.4 mg 24 hr capsule 07-25 00:00: 00 02-26 00:00 :00 No 1{capsu le} Take 1 capsule by mouth in the morning. [facility] traMADoL 50 mg tablet 07-23 00:00: 00 02-26 00:00 :00 No 50mg Take 1 tablet by mouth. [facility] ibuprofen 600 mg tablet 07-15 00:00: 00 07-31 00:00 :00 No [id number] 600mg Take 1 tablet by mouth every 6 (six) hours as needed for Pain (scale 4-6). [facility] citalopram 10 mg tablet 06-29 00:00: 00 Yes 10mg Take 1 tablet by mouth in the morning. [facility] citalopram 10 mg tablet 06-29 00:00: 00 02-26 00:00 :00 No 1{tbl} Take 1 tablet by mouth in the morning. [facility] QUEtiapine 400 mg tablet 06-29 00:00: 00 02-26 00:00 :00 No [facility] gabapentin 600 mg tablet 06-29 00:00: 00 02-26 00:00 :00 No [facility] methylPREDN ISolone (MEDROL, ANABELA,) 4 mg tablets 06-23 00:00: 00 09-24 00:00 :00 No [id number] Take by mouth SEE-INSTRU CTIONS. follow package directions [facility] bromphenira mine-pseudo ephedrine-D M (BROMFED DM) 2-30-10 mg/5 mL syrup 06-23 00:00: 00 07-04 05:59 :00 No [id number] 5mL Take 5 mL by mouth 4 (four) times daily as needed for Cold symptoms for up to 10 days. [facility] methocarbam oL 750 mg tablet 06-23 00:00: 00 07-01 05:59 :00 No [id number] 750mg Take 1 tablet by mouth 4 (four) times daily for 7 days. [facility] magnesium sulfate in water 2 gram/50 mL (4 %) infusion 2 g 2021-05 21:00: 00 05-05 21:15 :00 No 2g 2 g, IV Piggyback, Administer over 15 Minutes, ONCE, 1 dose, On 05/05/22 at 1500, [place] [facility] butalbital- acetaminoph en-caff (ESGIC) 50-325-40 mg tablet 1 tablet 2021-05 20:15: 00 05-05 20:56 :00 No 1{tbl} 1 tablet, Oral, ONCE, 1 dose, On 05/05/22 at 1415, [place] [facility] dexamethaso ne sod phos PF injection 10 mg 2021-05 20:15: 00 05-05 21:00 :00 No 10mg 10 mg, Slow IV Push, ONCE, 1 dose, On 05/05/22 at 1415, 1 mL [facility] NaCl 0.9% (NS) bolus infusion 1,000 mL 2021-05 20:00: 00 05-05 21:45 :00 No 1000mL at 999 mL/hr, 1,000 mL, IV Infusion, ONCE, 1 dose, On 05/05/22 at 1400, [place] [facility] diphenhydrA MINE (BENADRYL) injection 25 mg 2021-05 19:15: 00 05-05 19:42 :00 No 25mg 25 mg, Slow IV Push, ONCE, 1 dose, On 05/05/22 at 1315, STAT [facility] ondansetron (ZOFRAN (PF)) injection 4 mg 2021-05 19:15: 00 05-05 19:45 :00 No 4mg 4 mg, Slow IV Push, ONCE, 1 dose, On 05/05/22 at 1315, [place] [facility] ketorolac (TORADOL) injection 30 mg 2021-05 19:15: 00 05-05 19:44 :00 No 30mg 30 mg, Slow IV Push, ONCE, 1 dose, On 05/05/22 at 1315, Routine [facility] butalbital- acetaminoph en-caff 50-325-40 mg tablet 2021-05 00:00: 00 09-24 00:00 :00 No [id number] 1{tbl} Take 1 tablet by mouth every 4 (four) hours as needed for Pain (scale 7-10). [facility] HYDROcodone -acetaminop hen (NORCO) 10-325 mg tablet 1 tablet 2021-05 16:30: 00 04-26 15:23 :00 No 1{tbl} 1 tablet, Oral, ONCE, 1 dose, On [place] 04/26/22 at 1030, Routine [facility] diphenhydrA MINE (BENADRYL) tablet 25 mg 2021-05 15:45: 00 04-26 15:53 :00 No 25mg 25 mg, Oral, ONCE, 1 dose, On [place] 04/26/22 at 0945, [place] [facility] NaCl 0.9% (NS) bolus infusion 1,000 mL 2021-05 15:45: 00 04-26 15:55 :00 No 1000mL at 999 mL/hr, 1,000 mL, IV Piggyback, ONCE, 1 dose, On [place] 04/26/22 at 0945, STAT [facility] ondansetron (ZOFRAN (PF)) injection 4 mg 2021-05 14:45: 00 04-26 14:52 :00 No 4mg 4 mg, Slow IV Push, ONCE, 1 dose, On [place] 04/26/22 at 0845, Routine [facility] cephALEXin (KEFLEX) 500 mg capsule 2021-05 00:00: 00 05-04 05:59 :00 No [id number] 500mg Take 1 capsule by mouth in the morning and 1 capsule at noon and 1 capsule in the evening. Do all this for 7 days. [facility] ondansetron (ZOFRAN) 4 mg tablet 2021-05 00:00: 00 07-31 00:00 :00 No 4mg Take 1 tablet by mouth every 8 (eight) hours as needed for Nausea and Vomiting (N/V). [facility] galcanezuma b-gnlm prefilled (EMGALITY) subcutaneou s injection 2021-05 00:00: 00 02-26 00:00 :00 No [id number] 120mg inject 120 mg under the skin once every month. [facility] methocarbam oL (ROBAXIN) injection 1,000 mg 2021-05 04:00: 00 Yes 1000mg 1,000 mg, Intravenou s, Q8H, First dose on 04/07/22 at 2200, Until Discontinu ed, Routine [facility] ketorolac (TORADOL) injection 30 mg 2021-05 00:45: 00 04-07 23:45 :00 No 30mg 30 mg, Slow IV Push, ONCE, 1 dose, On 04/07/22 at 1845, Routine [facility] HYDROcodone -acetaminop hen (NORCO) 10-325 mg tablet 1 tablet 2021-05 00:30: 00 04-07 23:45 :00 No 1{tbl} 1 tablet, Oral, ONCE NOW, 1 dose, On 04/07/22 at 1830, Routine [facility] diphenhydrA MINE (BENADRYL) injection 12.5 mg 2021-05 23:45: 00 04-07 23:46 :00 No 12.5mg 12.5 mg, Slow IV Push, ONCE, 1 dose, On 04/07/22 at 1745, STAT [facility] butorphanol (STADOL) injection 1 mg 2021-05 23:15: 00 04-07 22:48 :00 No 1mg 1 mg, IV Push, ONCE, 1 dose, On 04/07/22 at 1715, Routine [facility] NaCl 0.9% (NS) bolus infusion 1,000 mL 2021-05 23:15: 00 04-07 23:49 :00 No 1000mL at 999 mL/hr, 1,000 mL, IV Infusion, ONCE, 1 dose, On 04/07/22 at 1715, [place] [facility] ketorolac (TORADOL) injection 15 mg 2021-05 19:30: 00 03-24 18:45 :00 No 15mg 15 mg, Slow IV Push, ONCE, 1 dose, On 03/24/22 at 1330, Routine [facility] butorphanol (STADOL) injection 1 mg 2021-05 18:00: 00 03-24 17:26 :00 No 1mg 1 mg, Intravenou s, ONCE, 1 dose, On 03/24/22 at 1200, Routine [facility] proMETHazin e (PHENERGAN) 25 mg in NaCl 0.9% (NS) 50 mL IV piggyback 2021-05 18:00: 00 03-24 18:13 :00 No 25mg 25 mg, IV Piggyback, ONCE, 1 dose, On 03/24/22 at 1200, [place] [facility] butorphanol (STADOL) injection 1 mg 2021-05 17:15: 00 03-24 16:26 :00 No 1mg 1 mg, IV Push, ONCE, 1 dose, On 03/24/22 at 1115, Routine [facility] diphenhydrA MINE (BENADRYL) injection 25 mg 2021-05 15:30: 00 03-24 15:40 :00 No 25mg 25 mg, Slow IV Push, ONCE, 1 dose, On 03/24/22 at 0930, STAT [facility] ondansetron (ZOFRAN (PF)) injection 4 mg 2021-05 15:30: 00 03-24 14:25 :00 No 4mg 4 mg, Slow IV Push, ONCE, 1 dose, On 03/24/22 at 0930, [place] [facility] NaCl 0.9% (NS) IV infusion 1,000 mL 2021-05 15:15: 00 03-24 17:25 :00 No 1000mL at 999 mL/hr, Intravenou s, ONCE, 1 dose, [facility] 2 gram/50 mL (4 %) infusion 2 g 2021-05 15:00: 00 03-24 14:47 :00 No 2g 2 g, IV Piggyback, Administer over 20 Minutes, ONCE, 1 dose, On 03/24/22 at 0900, Routine [facility] dexamethaso ne sod phos PF injection 6 mg 2021-05 14:15: 00 03-24 14:14 :00 No 6mg 6 mg, Slow IV Push, ONCE, 1 dose, On 03/24/22 at 0815, 1 mL [facility] diphenhydrA MINE (BENADRYL) injection 25 mg 2021-05 14:15: 00 03-24 14:16 :00 No 25mg 25 mg, Slow IV Push, ONCE, 1 dose, On 03/24/22 at 0815, STAT [facility] ALBUTEROL INHALE 2021-05 07:58: 13 03-24 00:00 :00 No [facility] rizatriptan 10 mg tablet 2021-05 00:00: 00 02-26 00:00 :00 No [id number] 10mg Take 1 tablet by mouth as needed for Migraine. May repeat in 2 hours if needed [facility] Butalbital- Acetaminoph en-Caff (FIORICET) 50-300-40 mg per capsule 2021-05 00:00: 00 02-26 00:00 :00 No [id number] 1{capsu le} Take 1 capsule by mouth every 6 (six) hours as needed for Other (headache) . [facility] magnesium oxide 200 mg magnesium Tab 2021-05 00:00: 00 04-07 00:00 :00 No [id number] 200mg Take 200 mg by mouth 2 (two) times daily. Indication s: headache [facility] SUMAtriptan 50 mg tablet 2021-05 00:00: 00 02-26 00:00 :00 No 50mg Take 1 tablet by mouth as needed for Migraine. Take one tablet at onset of migraine, may take another tablet 2 hours after initial dose if no relief with first dose. DO NOT EXCEED 100mg in a 24 hour period. [facility] FENTanyl PF (SUBLIMAZE (PF)) injection 50 mcg 2021-05 15:30: 00 03-15 14:56 :00 No 50ug 50 mcg, Slow IV Push, ONCE, 1 dose, On [place]ie 03/15/22 at 1030, Routine [facility] proMETHazin e (PHENERGAN) tablet 25 mg 2021-05 14:45: 00 03-15 14:55 :00 No 25mg 25 mg, Oral, ONCE, 1 dose, On [place] 03/15/22 at 0945, [place] [facility] FENTanyl PF (SUBLIMAZE (PF)) injection 50 mcg 2021-05 14:45: 00 03-15 13:58 :00 No 50ug 50 mcg, Slow IV Push, ONCE, 1 dose, On [place] 03/15/22 at 0945, Routine [facility] ondansetron (ZOFRAN (PF)) injection 4 mg 2021-05 14:00: 00 03-15 13:58 :00 No 4mg 4 mg, Slow IV Push, ONCE, 1 dose, On [place] 03/15/22 at 0900, [place] [facility] carvediloL 25 mg tablet 2021-05 00:00: 00 09-05 00:00 :00 No [id number] 25mg Take 1 tablet by mouth in the morning and 1 tablet in the evening. Take with meals. [facility] ondansetron 4 mg disintegrat ing tablet 2021-05 00:00: 00 04-07 00:00 :00 No [id number] 4mg Take 1 tablet by mouth every 8 (eight) hours as needed for Nausea and Vomiting (N/V). [facility] ketorolac 10 mg tablet 2021-05 00:00: 00 04-07 00:00 :00 No [id number] 10mg Take 1 tablet by mouth every 6 (six) hours as needed for Pain (scale 7-10). [facility] proMETHazin e 25 mg tablet 2021-05 00:00: 00 04-07 00:00 :00 No [id number] 25mg Take 1 tablet by mouth every 6 (six) hours as needed for N/V unresponsi ve to Ondansetro n. [facility] cephALEXin 500 mg capsule 2021-05 00:00: 00 03-19 05:59 :00 No [id number] 500mg Take 1 capsule by mouth 4 (four) times daily for 3 days. [facility] predniSONE 20 mg tablet 2021-05 00:00: 00 03-15 04:59 :00 No [id number] 20mg Take 1 tablet by mouth in the morning for 2 days. [facility] methocarbam oL (ROBAXIN) tablet 500 mg 2021-05 16:45: 00 03-11 17:08 :00 No 500mg 500 mg, Oral, ONCE, 1 dose, On 03/11/22 at 1200, [place] [facility] dexamethaso ne sod phos PF injection 10 mg 2021-05 16:00: 00 03-11 16:00 :00 No 10mg 10 mg, Slow IV Push, ONCE, 1 dose, On 03/11/22 at 1100, 1 mL [facility] diphenhydrA MINE (BENADRYL) injection 25 mg 2021-05 15:46: 00 03-11 16:00 :00 No 25mg 25 mg, Slow IV Push, ONCE, 1 dose, On 03/11/22 at 1100, STAT [facility] NaCl 0.9% (NS) IV infusion 1,000 mL 2021-05 15:45: 00 03-11 16:04 :00 No 1000mL at 999 mL/hr, Intravenou s, ONCE, 1 dose, On 03/11/22 at 1045, Routine [facility] butalbital- acetaminoph en-caff (ESGIC) 50-325-40 mg tablet 1 tablet 2021-05 15:00: 00 03-11 15:05 :00 No 1{tbl} 1 tablet, Oral, ONCE, 1 dose, On 03/11/22 at 1015, [place] [facility] ketorolac (TORADOL) injection 15 mg 2021-05 14:45: 00 03-11 15:05 :00 No 15mg 15 mg, Slow IV Push, ONCE, 1 dose, On 03/11/22 at 0945, [place] [facility] proMETHazin e (PHENERGAN) 12.5 mg in NaCl 0.9% (NS) 50 mL IV piggyback 2021-05 14:45: 00 03-11 15:04 :00 No 12.5mg 12.5 mg, IV Piggyback, ONCE, 1 dose, On 03/11/22 at 0945, [place] [facility] proMETHazin e 25 mg tablet 2021-05 00:00: 00 07-31 00:00 :00 No [id number] 25mg Take 1 tablet by mouth every 6 (six) hours as needed for Nausea and Vomiting (N/V). [facility] methocarbam oL 500 mg tablet 2021-05 00:00: 00 04-07 00:00 :00 No [id number] 500mg Take 1 tablet by mouth 3 (three) times daily as needed for Pain (scale 7-10). [facility] topiramate 25 mg tablet 2021-05 00:00: 00 02-26 00:00 :00 No [id number] 100mg Take 4 tablets by mouth in the morning. [facility] diphenhydrA MINE 25 mg capsule 2021-05 09:39: 59 02-27 00:00 :00 No 25mg Take 25 mg by mouth every 6 (six) hours as needed for Allergies. [facility] citalopram hydrobromid e (CITALOPRAM ORAL) 2021-05 09:39: 49 02-27 00:00 :00 No Take by mouth. [facility] carbamazepi ne (TEGRETOL ORAL) 2021-05 09:39: 28 02-27 00:00 :00 No Take by mouth. [facility] albuterol 90 mcg/actuati on inhaler 2021-05 00:00: 00 02-26 00:00 :00 No [id number] 2{puff} Inhale 2 Puffs every 6 (six) hours as needed for Wheezing or Shortness of Breath. [facility] SUMAtriptan 50 mg tablet 2021-05 00:00: 00 03-21 00:00 :00 No 50mg Take 50 mg by mouth as needed for Migraine. Take one tablet at onset of migraine, may take another tablet 2 hours after initial dose if no relief with first dose. DO NOT EXCEED 100mg in a 24 hour period. [facility] benzonatate 200 mg capsule 2021-05 00:00: 00 03-07 04:59 :00 No [id number] 200mg Take 1 capsule by mouth 3 (three) times daily as needed for Cough for up to 7 days. [facility] butalbital- acetaminoph en-caff (ESGIC) 50-325-40 mg tablet 1 tablet 2021-05 08:15: 00 02-21 08:09 :00 No 1{tbl} 1 tablet, Oral, ONCE, 1 dose, On Sat02/21/22 at 0315, [place] [facility] butorphanol (STADOL) injection 1 mg 2021-05 08:15: 00 02-21 07:28 :00 No 1mg 1 mg, IV Push, ONCE, 1 dose, On Sat02/21/22 at 0315, Routine [facility] NaCl 0.9% (NS) bolus infusion 1,000 mL 2021-05 07:15: 00 02-21 08:40 :00 No 1000mL at 999 mL/hr, 1,000 mL, IV Infusion, ONCE, 1 dose, On Sat02/21/22 at 0215, [place] [facility] proMETHazin e (PHENERGAN) 12.5 mg in NaCl 0.9% (NS) 50 mL IV piggyback 2021-05 06:30: 00 02-21 06:38 :00 No 12.5mg 12.5 mg, IV Piggyback, ONCE, 1 dose, On Sat02/21/22 at 0130, [place] [facility] dexamethaso ne sod phos PF injection 10 mg 2021-05 06:30: 00 02-21 06:38 :00 No 10mg 10 mg, Slow IV Push, ONCE, 1 dose, On Sat02/21/22 at 0130, 1 mL [facility] ketorolac (TORADOL) injection 15 mg 2021-05 06:30: 00 02-21 06:38 :00 No 15mg 15 mg, Slow IV Push, ONCE, 1 dose, On Sat02/21/22 at 0130, [place] [facility] diphenhydrA MINE (BENADRYL) injection 25 mg 2021-05 06:30: 00 02-21 06:38 :00 No 25mg 25 mg, Slow IV Push, ONCE, 1 dose, On Sat02/21/22 at 0130, STAT [facility] FENTanyl PF (SUBLIMAZE (PF)) injection 50 mcg 2021-05 20:30: 00 02-18 19:44 :00 No 50ug 50 mcg, Slow IV Push, ONCE, 1 dose, On Sat02/18/22 at 1530, Routine [facility] ketorolac (TORADOL) injection 30 mg 2021-05 20:15: 00 02-18 20:09 :00 No 30mg 30 mg, Slow IV Push, ONCE, 1 dose, On Sat02/18/22 at 1515, [place] [facility] iopamidol (ISOVUE 370-500 mL) injection 60 mL 2021-05 19:30: 00 02-18 17:30 :00 No [id number] 60mL 60 mL, Intravenou s, ONCE, 1 dose, On Sat02/18/22 at 1430, Routine [facility] proMETHazin e (PHENERGAN) 12.5 mg in NaCl 0.9% (NS) 50 mL IV piggyback 2021-05 18:15: 00 02-18 18:19 :00 No 12.5mg 12.5 mg, IV Piggyback, ONCE, 1 dose, On [place] 02/18/22 at 1315, [facility] FENTanyl PF (SUBLIMAZE (PF)) injection 50 mcg 2021-05 18:00: 00 02-18 17:26 :00 No 50ug 50 mcg, Slow IV Push, ONCE, 1 dose, On [place] 02/18/22 at 1300, Routine [facility] ondansetron (ZOFRAN (PF)) injection 4 mg 2021-05 17:15: 00 02-18 17:27 :00 No 4mg 4 mg, Slow IV Push, ONCE, 1 dose, On [place] 02/18/22 at 1215, [facility] morpHINE (2 mg/mL) injection 4 mg 01-18 15:15: 00 01-18 14:49 :00 No 4mg 4 mg, Slow IV Push, ONCE, 1 dose, On [facility] 01/18/22 at 1015, [facility] ondansetron (ZOFRAN (PF)) injection 4 mg 01-18 13:30: 00 01-18 13:33 :00 No 4mg 4 mg, Slow IV Push, ONCE, 1 dose, On [place] 01/18/22 at 0830, [facility] morpHINE (4 mg/mL) injection 4 mg 01-18 13:30: 00 01-18 13:34 :00 No 4mg 4 mg, Slow IV Push, ONCE, 1 dose, On [place] 01/18/22 at 0830, [facility] morpHINE (4 mg/mL) injection 4 mg 01-18 12:30: 00 01-18 11:39 :00 No 4mg 4 mg, Slow IV Push, ONCE, 1 dose, On [place] 01/18/22 at 0730, [facility] famotidine (PEPCID (PF)) injection 20 mg 01-18 11:30: 00 01-18 10:52 :00 No 20mg 20 mg, Slow IV Push, ONCE, 1 dose, On [place] 01/18/22 at 0630, [place] [facility] ondansetron (ZOFRAN (PF)) injection 4 mg 01-18 11:30: 00 01-18 10:52 :00 No 4mg 4 mg, Slow IV Push, ONCE, 1 dose, On [place] 01/18/22 at 0630, [place] [facility] iodixanoL (VISIPAQUE 270-150 mL) injection 80 mL 01-18 11:21: 00 01-18 11:15 :00 No [id number] 80mL 80 mL, Intravenou s, ONCE, 1 dose, On [place] 01/18/22 at 0630, Routine [facility] NaCl 0.9% (NS) bolus infusion 1,000 mL 01-18 11:15: 00 01-18 12:59 :00 No 1000mL at 999 mL/hr, 1,000 mL, IV Infusion, ONCE, 1 dose, On [place] 01/18/22 at 0615, [place] [facility] morpHINE (4 mg/mL) injection 4 mg 01-18 10:45: 00 01-18 10:52 :00 No 4mg 4 mg, Slow IV Push, ONCE, 1 dose, On [place] 01/18/22 at 0545, STAT [facility] traMADoL 50 mg tablet 01-18 00:00: 00 02-27 00:00 :00 No [id number] 50mg Take 1 tablet by mouth every 6 (six) hours as needed for Pain (scale 7-10). Indication s: acute pain [facility] ondansetron 4 mg disintegrat ing tablet 01-18 00:00: 00 02-27 00:00 :00 No [id number] 4mg Take 1 tablet by mouth every 8 (eight) hours as needed for Nausea and Vomiting (N/V). [facility] ibuprofen 600 mg tablet 01-18 00:00: 00 02-27 00:00 :00 No [id number] 600mg Take 1 tablet by mouth every 6 (six) hours as needed for Pain (scale 4-6). [facility] predniSONE 20 mg tablet 01-16 00:00: 00 01-24 04:59 :00 No [id number] 40mg Take 2 tablets by mouth in the morning for 7 days. [facility] morpHINE (4 mg/mL) injection 4 mg 01-15 16:15: 00 01-15 15:28 :00 No 4mg 4 mg, Slow IV Push, ONCE, 1 dose, On Sat01/15/22 at 1115, [facility] proMETHazin e (PHENERGAN) 12.5 mg in NaCl 0.9% (NS) 50 mL IV piggyback 01-15 15:30: 00 01-15 15:28 :00 No 12.5mg 12.5 mg, IV Piggyback, ONCE, 1 dose, On Sat01/15/22 at 1030, [facility] NaCl 0.9% (NS) bolus infusion 1,000 mL 01-15 15:00: 00 01-15 15:38 :00 No 1000mL at 999 mL/hr, 1,000 mL, IV Infusion, ONCE, 1 dose, On Sat01/15/22 at 1000, [facility] morpHINE (4 mg/mL) injection 4 mg 01-15 15:00: 00 01-15 14:37 :00 No 4mg 4 mg, Slow IV Push, ONCE, 1 dose, On Sat01/15/22 at 1000, [facility] ondansetron (ZOFRAN (PF)) injection 8 mg 01-15 14:15: 00 01-15 14:37 :00 No 8mg 8 mg, Slow IV Push, ONCE, 1 dose, On Sat01/15/22 at 0915, [facility] dexamethaso ne sod phos PF injection 10 mg 01-15 14:15: 00 01-15 14:37 :00 No 10mg 10 mg, Slow IV Push, ONCE, 1 dose, On Sat01/15/22 at 0915, 1 mL [facility] proMETHazin e 25 mg tablet 9-05 00:00: 00 02-27 00:00 :00 No [id number] 25mg Take 1 tablet by mouth every 6 (six) hours as needed for Nausea and Vomiting (N/V). [facility] ondansetron (ZOFRAN-ODT ) disintegrat ing tablet 4 mg 01-09 01:45: 00 01-09 00:56 :00 No 4mg 4 mg, Oral, ONCE, 1 dose, On Sat01/08/22 at 2045, Routine [facility] HYDROcodone -acetaminop hen (NORCO 5) 5-325 mg tablet 1 tablet 01-09 00:45: 00 01-09 00:37 :00 No 1{tbl} 1 tablet, Oral, ONCE, 1 dose, On Sat01/08/22 at 1945, [place] [facility] diphenhydrA MINE (BENADRYL) injection 25 mg 01-08 23:45: 00 01-08 23:51 :00 No 25mg 25 mg, Slow IV Push, ONCE, 1 dose, On Sat01/08/22 at 1845, STAT [facility] dexamethaso ne sod phos PF injection 10 mg 01-08 23:45: 00 01-08 23:50 :00 No 10mg 10 mg, Slow IV Push, ONCE, 1 dose, On Sat01/08/22 at 1845, 1 mL [facility] ketorolac (TORADOL) injection 30 mg 01-08 23:45: 00 01-08 23:51 :00 No 30mg 30 mg, Slow IV Push, ONCE, 1 dose, On Sat01/08/22 at 1845, [place] [facility] acetaminoph en (TYLENOL ARTHRITIS PAIN) 650 mg CR tablet 01-08 00:00: 00 04-07 00:00 :00 No [id number] 650mg Take 1 tablet by mouth every 8 (eight) hours as needed for Pain. [facility] ondansetron 4 mg disintegrat ing tablet 01-08 00:00: 00 02-27 00:00 :00 No [id number] 4mg Take 1 tablet by mouth every 8 (eight) hours as needed for Nausea and Vomiting (N/V). [facility] ketorolac 10 mg tablet 01-08 00:00: 00 02-27 00:00 :00 No [id number] 10mg Take 1 tablet by mouth every 6 (six) hours as needed for Pain (scale 4-6) or Pain (scale 7-10). [facility] metaxalone (SKELAXIN) 800 mg tablet 01-08 00:00: 00 02-27 00:00 :00 No [id number] 800mg Take 1 tablet by mouth in the morning and 1 tablet at noon and 1 tablet in the evening. [facility] metroNIDAZO LE 500 mg tablet 12-18 00:00: 00 02-27 00:00 :00 No 500mg Take 1 tablet by mouth every 12 (twelve) hours. [facility] trazodone/d ietary supp. no.8 (TRAZAMINE ORAL) 12-12 15:08: 46 12-12 00:00 :00 No Take by mouth. [facility] diphenhydrA MINE 25 mg capsule 12-12 13:03: 04 Yes 25mg Take 25 mg by mouth every 6 (six) hours as needed for Allergies. [facility] carbamazepi ne (TEGRETOL ORAL) 12-12 13:03: 04 Yes Take by mouth. [facility] traZODone 50 mg tablet 12-12 00:00: 00 02-27 00:00 :00 No [id number] 50mg Take 1 tablet by mouth at bedtime. [facility] SERTraline (ZOLOFT) 50 mg tablet 12-12 00:00: 00 02-27 00:00 :00 No [id number] 50mg Take 1 tablet by mouth in the morning. [facility] sulfamethox azole-trime thoprim (BACTRIM DS) 800-160 mg per tablet 12-12 00:00: 00 12-16 04:59 :00 No [id number] 1{tbl} Take 1 tablet by mouth in the morning and 1 tablet in the evening. Do all this for 3 days. [facility] ibuprofen 600 mg tablet 11-24 00:00: 00 02-27 00:00 :00 No [id number] 600mg Take 1 tablet by mouth every 6 (six) hours as needed for Pain (scale 4-6). [facility] acetaminoph en-codeine 300-30 mg tablet 11-24 00:00: 00 12-12 00:00 :00 No [id number] 1{tbl} Take 1 tablet by mouth every 4 (four) hours as needed for Pain (scale 4-6). Indication s: acute pain [facility] bromphenira mine-pseudo ephedrine-D M (BROMFED DM) 2-30-10 mg/5 mL syrup 11-18 00:00: 00 03-24 00:00 :00 No [id number] 5mL Take 5 mL by mouth 4 (four) times daily as needed for Congestion /Allergies or Cough. [facility] naproxen 500 mg tablet 11-18 00:00: 00 02-27 00:00 :00 No [id number] 500mg Take 1 tablet by mouth every 8 (eight) hours as needed for Pain (scale 4-6). [facility] cyclobenzap rine 10 mg tablet 11-18 00:00: 00 02-27 00:00 :00 No [id number] 10mg Take 1 tablet by mouth at bedtime as needed for Muscle Spasms. [facility] ibuprofen 100 mg/5 mL oral suspension 10-25 00:00: 00 02-27 00:00 :00 No [id number] 605mg Take 30.25 mL by mouth every 6 (six) hours as needed for Pain (scale 4-6) or Temp > 38.5 C. [facility] acetaminoph en 160 mg/5 mL liquid 15 00:00: 00 12-12 00:00 :00 No [id number] 608mg Take 19 mL by mouth every 6 (six) hours as needed for Fever. [facility] DULoxetine 60 mg capsule 10-06 00:00: 00 02-27 00:00 :00 No [facility] traZODone 50 mg tablet 10-06 00:00: 00 12-12 00:00 :00 No [facility] mometasone 50 mcg/actuati on nasal spray 09-28 00:00: 00 02-27 00:00 :00 No [id number] 1{spray } Use 1 [place] in each nostril 2 (two) times daily. [facility] cetirizine (ZYRTEC) 10 mg tablet 09-25 00:00: 00 02-27 00:00 :00 No [id number] 10mg Take 1 tablet by mouth daily. [facility] DULoxetine 30 mg capsule 09-18 00:00: 00 02-27 00:00 :00 No [facility] gabapentin 300 mg capsule 09-18 00:00: 00 02-27 00:00 :00 No [facility] ondansetron 4 mg tablet 09-18 00:00: 00 02-27 00:00 :00 No [facility] amLODIPine 5 mg tablet 09-01 00:00: 00 02-27 00:00 :00 No 5mg Take 5 mg by mouth. [facility] buPROPion XL 150 mg 24 hr tablet -20 00:00: 00 02-27 00:00 :00 No 150mg Take 150 mg by mouth. [facility] proMETHazin e 25 mg tablet 08-15 00:00: 09-12 00:00 :00 No [id number] 25mg Take 1 tablet by mouth every 6 (six) hours as needed for Nausea and Vomiting (N/V). [facility] traMADoL 50 mg tablet 08-15 00:00: 00 09-12 00:00 :00 No [id number] 50mg Take 1 tablet by mouth every 6 (six) hours as needed (pain). Indication s: acute pain [facility] cyclobenzap rine 10 mg tablet 08-07 00:00: 00 08-22 04:59 :00 No [id number] 10mg Take 1 tablet by mouth 3 (three) times daily for 14 days. [facility] ibuprofen 800 mg tablet 08-07 00:00: 00 08-22 04:59 :00 No [id number] 800mg Take 1 tablet by mouth every 6 (six) hours as needed for Pain (scale 1-3) for up to 14 days. [facility] diclofenac 75 mg EC tablet 08-01 00:00: 09-12 00:00 :00 No [facility] orphenadrin e 100 mg SR tablet 08-01 00:00: 09-12 00:00 :00 No [facility] divalproex 125 mg EC tablet 07-21 00:00: 00 09-12 00:00 :00 No [id number] 125mg Take 1 tablet by mouth every 12 (twelve) hours. [facility] divalproex Sprinkles 125 mg SPRINKLE capsule 07-21 00:00: 00 09-12 00:00 :00 No [facility] ibuprofen 600 mg tablet 07-17 00:00: 00 08-01 04:59 :00 No [id number] 600mg Take 1 tablet by mouth every 6 (six) hours as needed for Temp > 38.5 C for up to 14 days. [facility] acetaminoph en-codeine 300-30 mg tablet 06-11 00:00: 00 09-12 00:00 :00 No TAKE 1 TABLET BY MOUTH EVERY 4 HOURS NEEDED FOR PAIN FOR 2 DAYS [facility] fluticasone propionate 110 mcg/actuati on inhaler 05-31 00:00: 00 09-28 00:00 :00 No [id number] 2{puff} Inhale 2 Puffs every 12 (twelve) hours. [facility] benzonatate (TESSALON PERLES) 100 mg capsule 05-25 00:00: 00 09-25 00:00 :00 No [id number] 100mg Take 1 capsule by mouth every 8 (eight) hours as needed for Cough. [facility] carvediloL 25 mg tablet 2020-05 00:00: 00 02-27 00:00 :00 No 25mg Take 1 tablet by mouth 2 (two) times daily with meals. [facility] losartan 50 mg tablet 2020-05 00:00: 00 02-27 00:00 :00 No 50mg Take 1 tablet by mouth 2 (two) times daily. [facility] proMETHazin e 25 mg tablet 2020-05 00:00: 00 09-12 00:00 :00 No [facility] methocarbam oL (ROBAXIN) 500 mg tablet 2020-05 00:00: 00 05-25 00:00 :00 No [id number] 500mg Take 1 tablet by mouth every 6 (six) hours as needed (MUSCLE SPASM). [facility] vitamin B-12 (VITAMIN B-12) 500 mcg tablet 2020-05 00:00: 00 09-12 00:00 :00 No [id number] 500ug Take 1 tablet by mouth daily. [facility] methylPREDN ISolone 4 mg tablets 2020-05 00:00: 00 05-25 00:00 :00 No [id number] Follow package directions [facility] fluticasone propion-chel meteroL 115-21 mcg/actuati on inhaler 02-09 00:00: 05-25 00:00 :00 No [id number] 2{puff} Inhale 2 Puffs 2 (two) times daily. Rinse mouth after each use. [facility] albuterol 2.5 mg /3 mL (0.083 %) nebulizer solution 02-09 00:00: 05-25 00:00 :00 No [id number] 2.5mg Inhale 3 mL every 6 (six) hours as needed for Wheezing or Shortness of Breath. [facility] methocarbam oL (ROBAXIN) 500 mg tablet 02-09 00:00: 00 05-02 00:00 :00 No [id number] 500mg Take 1 tablet by mouth every 6 (six) hours as needed (MUSCLE SPASM). [facility] bromphenira mine-pseudo ephedrine-D M (BROMFED DM) 2-30-10 mg/5 mL syrup 01-31 00:00: 00 02-09 00:00 :00 No [id number] 5mL Take 5 mL by mouth 4 (four) times daily as needed for Cough. [facility] methylPREDN ISolone (MEDROL, ANABELA,) 4 mg tablets 01-20 00:00: 00 02-09 00:00 :00 No [id number] Take by mouth SEE-INSTRU CTIONS. follow package directions [facility] albuterol 90 mcg/actuati on inhaler 01-12 00:00: 00 05-25 00:00 :00 No [id number] 2{puff} Inhale 2 Puffs every 4 (four) hours as needed for Wheezing or Shortness of Breath. [facility] benzonatate 100 mg capsule 01-12 00:00: 00 02-19 00:00 :00 No [id number] 100mg Take 1 capsule by mouth 3 (three) times daily as needed for Cough. [facility] losartan 50 mg tablet 2021-0 8-13 00:00: 00 02-09 00:00 :00 No 50mg Take 1 tablet by mouth 2 (two) times daily. [facility] topiramate 25 mg tablet 7-13 00:00: 00 12-26 00:00 :00 No 25mg Take 1 tablet by mouth 2 (two) times daily. [facility] OXcarbazepi ne 150 mg tablet -12 00:00: 00 02-09 00:00 :00 No [facility] FLUoxetine 40 mg capsule -12 00:00: 00 12-26 00:00 :00 No [facility] traZODone 100 mg tablet 12 00:00: 00 12-26 00:00 :00 No [facility] dicyclomine 20 mg tablet 6-10 00:00: 00 12-26 00:00 :00 No [id number] 20mg Take 1 tablet by mouth 4 (four) times daily. [facility] proMETHazin e 25 mg tablet 6-10 00:00: 00 12-26 00:00 :00 No [id number] 25mg Take 1 tablet by mouth every 6 (six) hours as needed for Nausea and Vomiting (N/V). [facility] acetaminoph en-codeine 300-30 mg tablet 6-05 00:00: 00 12-26 00:00 :00 No TAKE 2 TABLETS BY MOUTH EVERY 6 HOURS NEEDED FOR PAIN [facility] oxybutynin (DITROPAN XL) 10 mg 24 hr tablet 5-30 00:00: 00 12-26 00:00 :00 No [id number] 10mg Take 1 tablet by mouth daily. [facility] ondansetron (ZOFRAN ODT) 4 mg disintegrat ing tablet 5-30 00:00: 00 12-26 00:00 :00 No [id number] 4mg Take 1 tablet by mouth every 8 (eight) hours as needed for Nausea and Vomiting (N/V). [facility] ciprofloxac in HCl 500 mg tablet 10-09 00:00: 00 11-22 00:00 :00 No [id number] 500mg Take 1 tablet by mouth 2 (two) times daily. [facility] predniSONE 20 mg tablet 10-04 00:00: 00 11-22 00:00 :00 No [id number] 20mg Take 1 tablet by mouth daily. Days 1-2: 3 pills (60 mg). Days 3-4: 2 pills (40 mg). Days 5-6: 1 pill (20 mg). Days 7-8: 1/2 pill (10 mg). Then stop [facility] mupirocin 2 % ointment 09-29 00:00: 00 12-26 00:00 :00 No [id number] Apply to both nostrils at bedtime [facility] naproxen sodium (ANAPROX DS) 550 mg tablet 09-28 00:00: 00 12-26 00:00 :00 No [id number] 550mg Take 1 tablet by mouth 2 (two) times daily with meals. [facility] losartan 25 mg tablet 09-16 00:00: 00 12-22 00:00 :00 No 25mg Take 1 tablet by mouth 2 (two) times daily. [facility] nadoloL 20 mg tablet 09-16 00:00: 00 12-22 00:00 :00 No [id number] Please take Nadalol 40 mg QAM [facility] LOESTRIN FE (LOESTRIN FE 1/20) 1 mg-20 mcg (21)/75 mg (7) tablet 09-06 00:00: 00 02-09 00:00 :00 No [id number] 1{tbl} Take 1 tablet by mouth daily. [facility] FLUoxetine 20 mg capsule 09-06 00:00: 00 11-22 00:00 :00 No [id number] 20mg Take 1 capsule by mouth daily. [facility] traZODone 50 mg tablet 427 00:00: 00 11-22 00:00 :00 No [id number] 50mg Take 1 tablet by mouth at bedtime. [facility] nadoloL 20 mg tablet 08-31 00:00: 00 09-16 00:00 :00 No [id number] Please take Nadalol 40 mg QAM and 20 mg QPM [facility] methocarbam oL (ROBAXIN) 500 mg tablet 08-18 00:00: 00 09-30 00:00 :00 No [id number] 500mg Take 1 tablet by mouth every 6 (six) hours as needed (MUSCLE SPASM). [facility] traMADoL (ULTRAM) 50 mg tablet 08-18 00:00: 00 09-30 00:00 :00 No [id number] 50mg Take 1 tablet by mouth every 6 (six) hours as needed for Pain (scale 7-10). Indication s: acute pain [facility] ibuprofen 800 mg tablet 404 00:00: 00 11-22 00:00 :00 No TAKE 1 TABLET BY MOUTH EVERY 12 HOURS NEEDED FOR PAIN [facility] ondansetron (ZOFRAN ODT) 4 mg disintegrat ing tablet 08-01 00:00: 00 09-30 00:00 :00 No [id number] 4mg Take 1 tablet by mouth every 8 (eight) hours as needed for Nausea and Vomiting (N/V). [facility] ketorolac 10 mg tablet 3- 00:00: 00 09-30 00:00 :00 No [id number] 10mg Take 1 tablet by mouth every 6 (six) hours as needed for Pain (scale 4-6). [facility] ciprofloxac in HCl 250 mg tablet 3-22 00:00: 00 09-30 00:00 :00 No [id number] 250mg Take 1 tablet by mouth 2 (two) times daily. [facility] lidocaine 5 % (700 mg/patch) patch 07-22 00:00: 09-30 00:00 :00 No [id number] 1{patch } Apply 1 Patch to area(s) every 24 (twenty-fo ur) hours as needed for Localized pain. [facility] topiramate 25 mg tablet 05-17 00:00: 11-22 00:00 :00 No 25mg Take 1 tablet by mouth 2 (two) times daily. [facility] metoprolol succinate XL 25 mg 24 hr tablet 2019-05 00:00: 06-15 00:00 :00 No [id number] 12.5mg Take 0.5 tablets by mouth 2 (two) times daily for 90 days. [facility] FLUoxetine 20 mg capsule 2019-05 00:00: 00 09-06 00:00 :00 No 20mg Take 20 mg by mouth daily. [facility] norgestimat e-ethinyl estradiol 0.25-35 mg-mcg per tablet - 00:00: 04-15 00:00 :00 No [id number] 1{tbl} Take 1 tablet by mouth daily. [facility] buPROPion XL (WELLBUTRIN XL) 150 mg 24 hr tablet - 00:00: 01-04 00:00 :00 No [id number] 150mg Take 1 tablet by mouth daily. [facility] acetaminoph en 325 mg tablet 07-22 00:00: 00 01-04 00:00 :00 No [id number] 650mg Take 2 tablets by mouth every 6 (six) hours as needed for Pain (scale 1-3) or Pain (scale 4-6). [facility] vitamin w/FA tablet 07-22 00:00: 00 01-04 00:00 :00 No [id number] 1{tbl} Take 1 tablet by mouth daily. [facility] docusate calcium 240 mg capsule -12 00:00: 01-04 00:00 :00 No [id number] 240mg Take 1 capsule by mouth once daily as needed for Constipati on. [facility] ferrous sulfate 325 mg (65 mg iron) tablet 07-22 00:00: 01-04 00:00 :00 No [id number] 325mg Take 1 tablet by mouth 2 (two) times daily. [facility] ibuprofen 600 mg tablet 07-22 00:00: 01-04 00:00 :00 No [id number] 600mg Take 1 tablet by mouth every 6 (six) hours as needed (Pain). Take with food or milk. [facility] ALBUTEROL 90 mcg/actuati on inhaler 05-26 00:00: 05-01 00:00 :00 No [id number] 103 INHALE 2 PUFFS BY MOUTH EVERY 6 HOURS NEEDED FOR WHEEZING FOR SHORTNESS OF BREATH [facility] buPROPion SR (WELLBUTRIN SR) 150 mg SR tablet 05-21 00:00: 01-04 00:00 :00 No [id number] 150mg Take 1 tablet by mouth 2 (two) times daily. [facility] busPIRone 10 mg tablet 05-21 00:00: 01-04 00:00 :00 No [id number] 109 10mg Take 1 tablet by mouth 3 (three) times daily. [facility] Immunizations Ordered Immunization Name Filled Immunization Name Date Status Comments Source Influenza Virus Vaccine Quad IM, Preserv and ABX Free 6 MO-64 YRS 2022-02-27 00:00:00 Completed [facility] Influenza Virus Vaccine Quad IM, Preserv and ABX Free 6 MO-64 YRS 2022-02-27 00:00:00 Completed [facility] Influenza Virus Vaccine Quad IM, Preserv and ABX Free 6 MO-64 YRS 2022-02-27 00:00:00 Completed [facility] Influenza Virus Vaccine Quad IM, Preserv and ABX Free 6 MO-64 YRS 2022-02-27 00:00:00 Completed [facility] Influenza Virus Vaccine Quad IM, Preserv and ABX Free 6 MO-64 YRS 2022-02-27 00:00:00 Completed [facility] Influenza Virus Vaccine Quad IM, Preserv and ABX Free 6 MO-64 YRS 2022-02-27 00:00:00 Completed [facility] Influenza Virus Vaccine Quad IM, Preserv and ABX Free 6 MO-64 YRS 2022-02-27 00:00:00 Completed [facility] Influenza Virus Vaccine Quad IM, Preserv and ABX Free 6 MO-64 YRS 2022-02-27 00:00:00 Completed [facility] Influenza Virus Vaccine Quad IM, Preserv and ABX Free 6 MO-64 YRS 2022-02-27 00:00:00 Completed [facility] Influenza Virus Vaccine Quad IM, Preserv and ABX Free 6 MO-64 YRS 2022-02-27 00:00:00 Completed [facility] Influenza Virus Vaccine Quad IM, Preserv and ABX Free 6 MO-64 YRS 2022-02-27 00:00:00 Completed [facility] Influenza Virus Vaccine Quad IM, Preserv and ABX Free 6 MO-64 YRS 2022-02-27 00:00:00 Completed [facility] Influenza Virus Vaccine Quad IM, Preserv and ABX Free 6 MO-64 YRS 2022-02-27 00:00:00 Completed [facility] Influenza Virus Vaccine Quad IM, Preserv and ABX Free 6 MO-64 YRS 2022-02-27 00:00:00 Completed [facility] Influenza Virus Vaccine Quad IM, Preserv and ABX Free 6 MO-64 YRS 2022-02-27 00:00:00 Completed [facility] Influenza Virus Vaccine Quad IM, Preserv and ABX Free 6 MO-64 YRS 2022-02-27 00:00:00 Completed [facility] Influenza Virus Vaccine Quad IM, Preserv and ABX Free 6 MO-64 YRS 2022-02-27 00:00:00 Completed [facility] Influenza Virus Vaccine Quad IM, Preserv and ABX Free 6 MO-64 YRS 2022-02-27 00:00:00 Completed [facility] Influenza Virus Vaccine Quad IM, Preserv and ABX Free 6 MO-64 YRS 2022-02-27 00:00:00 Completed [facility] Influenza Virus Vaccine Quad IM, Preserv and ABX Free 6 MO-64 YRS 2022-02-27 00:00:00 Completed [facility] Influenza Virus Vaccine Quad IM, Preserv and ABX Free 6 MO-64 YRS 2022-02-27 00:00:00 Completed [facility] Influenza Virus Vaccine Quad IM, Preserv and ABX Free 6 MO-64 YRS 2022-02-27 00:00:00 Completed [facility] Influenza Virus Vaccine Quad IM, Preserv and ABX Free 6 MO-64 YRS 2022-02-27 00:00:00 Completed [facility] Influenza Virus Vaccine Quad IM, Preserv and ABX Free 6 MO-64 YRS 2022-02-27 00:00:00 Completed [facility] Influenza Virus Vaccine Quad IM, Preserv and ABX Free 6 MO-64 YRS 2022-02-27 00:00:00 Completed [facility] Influenza Virus Vaccine Quad IM, Preserv and ABX Free 6 MO-64 YRS 2022-02-27 00:00:00 Completed [facility] Influenza Virus Vaccine Quad IM, Preserv and ABX Free 6 MO-64 YRS 2022-02-27 00:00:00 Completed [facility] Influenza Virus Vaccine Quad IM, Preserv and ABX Free 6 MO-64 YRS 2022-02-27 00:00:00 Completed [facility] Influenza Virus Vaccine Quad IM, Preserv and ABX Free 6 MO-64 YRS 2022-02-27 00:00:00 Completed [facility] Influenza Virus Vaccine Quad IM, Preserv and ABX Free 6 MO-64 YRS 2022-02-27 00:00:00 Completed [facility] Influenza Virus Vaccine Quad IM, Preserv and ABX Free 6 MO-64 YRS 2022-02-27 00:00:00 Completed [facility] Influenza Virus Vaccine Quad IM, Preserv and ABX Free 6 MO-64 YRS 2022-02-27 00:00:00 Completed [facility] Influenza Virus Vaccine Quad IM, Preserv and ABX Free 6 MO-64 YRS 2022-02-27 00:00:00 Completed [facility] Influenza Virus Vaccine Quad IM, Preserv and ABX Free 6 MO-64 YRS 2022-02-27 00:00:00 Completed [facility] Influenza Virus Vaccine Quad IM, Preserv and ABX Free 6 MO-64 YRS 2022-02-27 00:00:00 Completed [facility] Influenza Virus Vaccine Quad IM, Preserv and ABX Free 6 MO-64 YRS 2022-02-27 00:00:00 Completed [facility] Influenza Virus Vaccine Quad IM, Preserv and ABX Free 6 MO-64 YRS 2022-02-27 00:00:00 Completed [facility] Influenza Virus Vaccine Quad IM, Preserv and ABX Free 6 MO-64 YRS 2022-02-27 00:00:00 Completed [facility] Influenza Virus Vaccine Quad IM, Preserv and ABX Free 6 MO-64 YRS 2022-02-27 00:00:00 Completed [facility] Influenza Virus Vaccine Quad IM, Preserv and ABX Free 6 MO-64 YRS 2022-02-27 00:00:00 Completed [facility] Influenza Virus Vaccine Quad IM, Preserv and ABX Free 6 MO-64 YRS 2022-02-27 00:00:00 Completed [facility] Influenza Virus Vaccine Quad IM, Preserv and ABX Free 6 MO-64 YRS (FLUCELVAX) 2022-02-27 00:00:00 Completed [facility] Influenza Virus Vaccine Quad IM, Preserv and ABX Free 6 MO-64 YRS (FLUCELVAX) 2022-02-27 00:00:00 Completed [facility] Influenza Virus Vaccine Quad IM, Preserv and ABX Free 6 MO-64 YRS (FLUCELVAX) 2022-02-27 00:00:00 Completed [facility] Influenza Virus Vaccine Quad .5 mL IM 6+ MO 2022-02-21 00:00:00 Completed [facility] Influenza Virus Vaccine Quad .5 mL IM 6+ MO 2022-02-21 00:00:00 Completed [facility] Influenza Virus Vaccine Quad .5 mL IM 6+ MO 2022-02-21 00:00:00 Completed [facility] Influenza Virus Vaccine Quad .5 mL IM 6+ MO 2022-02-21 00:00:00 Completed [facility] Influenza Virus Vaccine Quad .5 mL IM 6+ MO 2022-02-21 00:00:00 Completed [facility] Influenza Virus Vaccine Quad .5 mL IM 6+ MO 2022-02-21 00:00:00 Completed [facility] Influenza Virus Vaccine Quad .5 mL IM 6+ MO 2022-02-21 00:00:00 Completed [facility] Influenza Virus Vaccine Quad .5 mL IM 6+ MO 2022-02-21 00:00:00 Completed [facility] Influenza Virus Vaccine Quad .5 mL IM 6+ MO 2022-02-21 00:00:00 Completed [facility] Influenza Virus Vaccine Quad .5 mL IM 6+ MO 2022-02-21 00:00:00 Completed [facility] Influenza Virus Vaccine Quad .5 mL IM 6+ MO 2022-02-21 00:00:00 Completed [facility] Influenza Virus Vaccine Quad .5 mL IM 6+ MO 2022-02-21 00:00:00 Completed [facility] Influenza Virus Vaccine Quad .5 mL IM 6+ MO (FLUZONE/FLULAVAL/F LUARIX) 2022-02-21 00:00:00 Completed [facility] Influenza Virus Vaccine Quad .5 mL IM 6+ MO (FLUZONE/FLULAVAL/F LUARIX) 2022-02-21 00:00:00 Completed [facility] Influenza Virus Vaccine Quad .5 mL IM 6+ MO (FLUZONE/FLULAVAL/F LUARIX) 2022-02-21 00:00:00 Completed [facility] Influenza Virus Vaccine 2021-06-11 00:00:00 Completed [facility] Influenza Virus Vaccine 2021-06-11 00:00:00 Completed [facility] Influenza Virus Vaccine 2021-06-11 00:00:00 Completed [facility] Influenza Virus Vaccine 2021-06-11 00:00:00 Completed [facility] Influenza Virus Vaccine 2021-06-11 00:00:00 Completed [facility] Influenza Virus Vaccine 2021-06-11 00:00:00 Completed [facility] Influenza Virus Vaccine 2021-06-11 00:00:00 Completed [facility] Influenza Virus Vaccine 2021-06-11 00:00:00 Completed [facility] Influenza Virus Vaccine 2021-06-11 00:00:00 Completed [facility] Influenza Virus Vaccine 2021-06-11 00:00:00 Completed [facility] Influenza Virus Vaccine 2021-06-11 00:00:00 Completed [facility] Influenza Virus Vaccine 2021-06-11 00:00:00 Completed [facility] Influenza Virus Vaccine 2021-06-11 00:00:00 Completed [facility] Influenza Virus Vaccine 2021-06-11 00:00:00 Completed [facility] Influenza Virus Vaccine 2021-06-11 00:00:00 Completed [facility] Influenza Virus Vaccine 2021-06-11 00:00:00 Completed [facility] Influenza Virus Vaccine 2021-06-11 00:00:00 Completed [facility] Influenza Virus Vaccine 2021-06-11 00:00:00 Completed [facility] Influenza Virus Vaccine 2021-06-11 00:00:00 Completed [facility] Influenza Virus Vaccine 2021-06-11 00:00:00 Completed [facility] Influenza Virus Vaccine 2021-06-11 00:00:00 Completed [facility] Influenza Virus Vaccine 2021-06-11 00:00:00 Completed [facility] Influenza Virus Vaccine 2021-06-11 00:00:00 Completed [facility] Influenza Virus Vaccine 2021-06-11 00:00:00 Completed [facility] Influenza Virus Vaccine 2021-06-11 00:00:00 Completed [facility] Influenza Virus Vaccine 2021-06-11 00:00:00 Completed [facility] Influenza Virus Vaccine 2021-06-11 00:00:00 Completed [facility] Influenza Virus Vaccine 2021-06-11 00:00:00 Completed [facility] Influenza Virus Vaccine 2021-06-11 00:00:00 Completed [facility] Influenza Virus Vaccine 2021-06-11 00:00:00 Completed [facility] Influenza Virus Vaccine 2021-06-11 00:00:00 Completed [facility] Influenza Virus Vaccine 2021-06-11 00:00:00 Completed [facility] Influenza Virus Vaccine 2021-06-11 00:00:00 Completed [facility] Influenza Virus Vaccine 2021-06-11 00:00:00 Completed [facility] Influenza Virus Vaccine 2021-06-11 00:00:00 Completed [facility] Influenza Virus Vaccine 2021-06-11 00:00:00 Completed [facility] Influenza Virus Vaccine 2021-06-11 00:00:00 Completed [facility] Influenza Virus Vaccine 2021-06-11 00:00:00 Completed [facility] Influenza Virus Vaccine 2021-06-11 00:00:00 Completed [facility] Influenza Virus Vaccine 2021-06-11 00:00:00 Completed [facility] Influenza Virus Vaccine 2021-06-11 00:00:00 Completed [facility] Influenza Virus Vaccine Quad .5 mL IM 6+ MO 2021-06-11 00:00:00 Completed [facility] Influenza Virus Vaccine 2021-06-11 00:00:00 Completed [facility] Influenza Virus Vaccine Quad .5 mL IM 6+ MO 2021-06-11 00:00:00 Completed [facility] Influenza Virus Vaccine 2021-06-11 00:00:00 Completed [facility] Influenza Virus Vaccine Quad .5 mL IM 6+ MO 2021-06-11 00:00:00 Completed [facility] Influenza Virus Vaccine 2021-06-11 00:00:00 Completed [facility] Influenza Virus Vaccine Quad .5 mL IM 6+ MO 2021-06-11 00:00:00 Completed [facility] Influenza Virus Vaccine 2021-06-11 00:00:00 Completed [facility] Influenza Virus Vaccine Quad .5 mL IM 6+ MO 2021-06-11 00:00:00 Completed [facility] Influenza Virus Vaccine 2021-06-11 00:00:00 Completed [facility] Influenza Virus Vaccine Quad .5 mL IM 6+ MO 2021-06-11 00:00:00 Completed [facility] Influenza Virus Vaccine 2021-06-11 00:00:00 Completed [facility] Influenza Virus Vaccine Quad .5 mL IM 6+ MO 2021-06-11 00:00:00 Completed [facility] Influenza Virus Vaccine 2021-06-11 00:00:00 Completed [facility] Influenza Virus Vaccine Quad .5 mL IM 6+ MO 2021-06-11 00:00:00 Completed [facility] Influenza Virus Vaccine 2021-06-11 00:00:00 Completed [facility] Influenza Virus Vaccine Quad .5 mL IM 6+ MO 2021-06-11 00:00:00 Completed [facility] Influenza Virus Vaccine 2021-06-11 00:00:00 Completed [facility] Influenza Virus Vaccine Quad .5 mL IM 6+ MO 2021-06-11 00:00:00 Completed [facility] Influenza Virus Vaccine 2021-06-11 00:00:00 Completed [facility] Influenza Virus Vaccine Quad .5 mL IM 6+ MO 2021-06-11 00:00:00 Completed [facility] Influenza Virus Vaccine 2021-06-11 00:00:00 Completed [facility] Influenza Virus Vaccine Quad .5 mL IM 6+ MO 2021-06-11 00:00:00 Completed [facility] Influenza Virus Vaccine 2021-06-11 00:00:00 Completed [facility] Influenza Virus Vaccine Quad .5 mL IM 6+ MO (FLUZONE/FLULAVAL/F LUARIX) 2021-06-11 00:00:00 Completed [facility] Influenza Virus Vaccine 2021-06-11 00:00:00 Completed [facility] Influenza Virus Vaccine Quad .5 mL IM 6+ MO (FLUZONE/FLULAVAL/F LUARIX) 2021-06-11 00:00:00 Completed [facility] Influenza Virus Vaccine 2021-06-11 00:00:00 Completed [facility] Influenza Virus Vaccine Quad .5 mL IM 6+ MO (FLUZONE/FLULAVAL/F LUARIX) 2021-06-11 00:00:00 Completed [facility] Influenza Virus Vaccine 2020-05-19 00:00:00 Completed [facility] Influenza Virus Vaccine 2020-05-19 00:00:00 Completed [facility] Influenza Virus Vaccine 2020-05-19 00:00:00 Completed [facility] Influenza Virus Vaccine 2020-05-19 00:00:00 Completed [facility] Influenza Virus Vaccine 2020-05-19 00:00:00 Completed [facility] Influenza Virus Vaccine 2020-05-19 00:00:00 Completed [facility] Influenza Virus Vaccine 2020-05-19 00:00:00 Completed [facility] Influenza Virus Vaccine 2020-05-19 00:00:00 Completed [facility] Influenza Virus Vaccine 2020-05-19 00:00:00 Completed [facility] Influenza Virus Vaccine 2020-05-19 00:00:00 Completed [facility] Influenza Virus Vaccine 2020-05-19 00:00:00 Completed [facility] Influenza Virus Vaccine 2020-05-19 00:00:00 Completed [facility] Influenza Virus Vaccine 2020-05-19 00:00:00 Completed [facility] Influenza Virus Vaccine 2020-05-19 00:00:00 Completed [facility] Influenza Virus Vaccine 2020-05-19 00:00:00 Completed [facility] Influenza Virus Vaccine 2020-05-19 00:00:00 Completed [facility] Influenza Virus Vaccine 2020-05-19 00:00:00 Completed [facility] Influenza Virus Vaccine 2020-05-19 00:00:00 Completed [facility] Influenza Virus Vaccine 2020-05-19 00:00:00 Completed [facility] Influenza Virus Vaccine 2020-05-19 00:00:00 Completed [facility] Influenza Virus Vaccine 2020-05-19 00:00:00 Completed [facility] Influenza Virus Vaccine 2020-05-19 00:00:00 Completed [facility] Influenza Virus Vaccine 2020-05-19 00:00:00 Completed [facility] Influenza Virus Vaccine 2020-05-19 00:00:00 Completed [facility] Influenza Virus Vaccine 2020-05-19 00:00:00 Completed [facility] Influenza Virus Vaccine 2020-05-19 00:00:00 Completed [facility] Influenza Virus Vaccine 2020-05-19 00:00:00 Completed [facility] Influenza Virus Vaccine 2020-05-19 00:00:00 Completed [facility] Influenza Virus Vaccine 2020-05-19 00:00:00 Completed [facility] Influenza Virus Vaccine 2020-05-19 00:00:00 Completed [facility] Influenza Virus Vaccine 2020-05-19 00:00:00 Completed [facility] Influenza Virus Vaccine 2020-05-19 00:00:00 Completed [facility] Influenza Virus Vaccine 2020-05-19 00:00:00 Completed [facility] Influenza Virus Vaccine 2020-05-19 00:00:00 Completed [facility] Influenza Virus Vaccine 2020-05-19 00:00:00 Completed [facility] Influenza Virus Vaccine 2020-05-19 00:00:00 Completed [facility] Influenza Virus Vaccine 2020-05-19 00:00:00 Completed [facility] Influenza Virus Vaccine 2020-05-19 00:00:00 Completed [facility] Influenza Virus Vaccine 2020-05-19 00:00:00 Completed [facility] Influenza Virus Vaccine 2020-05-19 00:00:00 Completed [facility] Influenza Virus Vaccine 2020-05-19 00:00:00 Completed [facility] Influenza Virus Vaccine 2020-05-19 00:00:00 Completed [facility] Influenza Virus Vaccine 2020-05-19 00:00:00 Completed [facility] Influenza Virus Vaccine 2020-05-19 00:00:00 Completed [facility] Influenza Virus Vaccine 2020-05-19 00:00:00 Completed [facility] Influenza Virus Vaccine 2020-05-19 00:00:00 Completed [facility] Influenza Virus Vaccine 2020-05-19 00:00:00 Completed [facility] Influenza Virus Vaccine 2020-05-19 00:00:00 Completed [facility] Influenza Virus Vaccine 2020-05-19 00:00:00 Completed [facility] Influenza Virus Vaccine 2020-05-19 00:00:00 Completed [facility] Influenza Virus Vaccine 2020-05-19 00:00:00 Completed [facility] Influenza Virus Vaccine 2020-05-19 00:00:00 Completed [facility] Influenza Virus Vaccine 2020-05-19 00:00:00 Completed [facility] Influenza Virus Vaccine 2020-05-19 00:00:00 Completed [facility] Influenza Virus Vaccine 2020-05-19 00:00:00 Completed [facility] Influenza Virus Vaccine Recomb Quad IM, Preserv and ABX Free 18-64 YRS 2020-05-16 00:00:00 Completed [facility] Influenza Virus Vaccine Recomb Quad IM, Preserv and ABX Free 18-64 YRS 2020-05-16 00:00:00 Completed [facility] Influenza Virus Vaccine Recomb Quad IM, Preserv and ABX Free 18-64 YRS 2020-05-16 00:00:00 Completed [facility] Influenza Virus Vaccine Recomb Quad IM, Preserv and ABX Free 18-64 YRS 2020-05-16 00:00:00 Completed [facility] Influenza Virus Vaccine Recomb Quad IM, Preserv and ABX Free 18-64 YRS 2020-05-16 00:00:00 Completed [facility] Influenza Virus Vaccine Recomb Quad IM, Preserv and ABX Free 18-64 YRS 2020-05-16 00:00:00 Completed [facility] Influenza Virus Vaccine Recomb Quad IM, Preserv and ABX Free 18-64 YRS 2020-05-16 00:00:00 Completed [facility] Influenza Virus Vaccine Recomb Quad IM, Preserv and ABX Free 18-64 YRS 2020-05-16 00:00:00 Completed [facility] Influenza Virus Vaccine Recomb Quad IM, Preserv and ABX Free 18-64 YRS 2020-05-16 00:00:00 Completed [facility] Influenza Virus Vaccine Recomb Quad IM, Preserv and ABX Free 18-64 YRS 2020-05-16 00:00:00 Completed [facility] Influenza Virus Vaccine Recomb Quad IM, Preserv and ABX Free 18-64 YRS 2020-05-16 00:00:00 Completed [facility] Influenza Virus Vaccine Recomb Quad IM, Preserv and ABX Free 18-64 YRS 2020-05-16 00:00:00 Completed [facility] Influenza Virus Vaccine Recomb Quad IM, Preserv and ABX Free 18-64 YRS 2020-05-16 00:00:00 Completed [facility] Influenza Virus Vaccine Recomb Quad IM, Preserv and ABX Free 18-64 YRS 2020-05-16 00:00:00 Completed [facility] Influenza Virus Vaccine Recomb Quad IM, Preserv and ABX Free 18-64 YRS 2020-05-16 00:00:00 Completed [facility] Influenza Virus Vaccine Recomb Quad IM, Preserv and ABX Free 18-64 YRS 2020-05-16 00:00:00 Completed [facility] Influenza Virus Vaccine Recomb Quad IM, Preserv and ABX Free 18-64 YRS 2020-05-16 00:00:00 Completed [facility] Influenza Virus Vaccine Recomb Quad IM, Preserv and ABX Free 18-64 YRS 2020-05-16 00:00:00 Completed [facility] Influenza Virus Vaccine Recomb Quad IM, Preserv and ABX Free 18-64 YRS 2020-05-16 00:00:00 Completed [facility] Influenza Virus Vaccine Recomb Quad IM, Preserv and ABX Free 18-64 YRS 2020-05-16 00:00:00 Completed [facility] Influenza Virus Vaccine Recomb Quad IM, Preserv and ABX Free 18-64 YRS 2020-05-16 00:00:00 Completed [facility] Influenza Virus Vaccine Recomb Quad IM, Preserv and ABX Free 18-64 YRS 2020-05-16 00:00:00 Completed [facility] Influenza Virus Vaccine Recomb Quad IM, Preserv and ABX Free 18-64 YRS 2020-05-16 00:00:00 Completed [facility] Influenza Virus Vaccine Recomb Quad IM, Preserv and ABX Free 18-64 YRS 2020-05-16 00:00:00 Completed [facility] Influenza Virus Vaccine Recomb Quad IM, Preserv and ABX Free 18-64 YRS 2020-05-16 00:00:00 Completed [facility] Influenza Virus Vaccine Recomb Quad IM, Preserv and ABX Free 18-64 YRS 2020-05-16 00:00:00 Completed [facility] Influenza Virus Vaccine Recomb Quad IM, Preserv and ABX Free 18-64 YRS 2020-05-16 00:00:00 Completed [facility] Influenza Virus Vaccine Recomb Quad IM, Preserv and ABX Free 18-64 YRS 2020-05-16 00:00:00 Completed [facility] Influenza Virus Vaccine Recomb Quad IM, Preserv and ABX Free 18-64 YRS 2020-05-16 00:00:00 Completed [facility] Influenza Virus Vaccine Recomb Quad IM, Preserv and ABX Free 18-64 YRS 2020-05-16 00:00:00 Completed [facility] Influenza Virus Vaccine Recomb Quad IM, Preserv and ABX Free 18-64 YRS 2020-05-16 00:00:00 Completed [facility] Influenza Virus Vaccine Recomb Quad IM, Preserv and ABX Free 18-64 YRS 2020-05-16 00:00:00 Completed [facility] Influenza Virus Vaccine Recomb Quad IM, Preserv and ABX Free 18-64 YRS 2020-05-16 00:00:00 Completed [facility] Influenza Virus Vaccine Recomb Quad IM, Preserv and ABX Free 18-64 YRS 2020-05-16 00:00:00 Completed [facility] Influenza Virus Vaccine Recomb Quad IM, Preserv and ABX Free 18-64 YRS 2020-05-16 00:00:00 Completed [facility] Influenza Virus Vaccine Recomb Quad IM, Preserv and ABX Free 18-64 YRS 2020-05-16 00:00:00 Completed [facility] Influenza Virus Vaccine Recomb Quad IM, Preserv and ABX Free 18-64 YRS 2020-05-16 00:00:00 Completed [facility] Influenza Virus Vaccine Recomb Quad IM, Preserv and ABX Free 18-64 YRS 2020-05-16 00:00:00 Completed [facility] Influenza Virus Vaccine Recomb Quad IM, Preserv and ABX Free 18-64 YRS 2020-05-16 00:00:00 Completed [facility] Influenza Virus Vaccine Recomb Quad IM, Preserv and ABX Free 18-64 YRS 2020-05-16 00:00:00 Completed [facility] Influenza Virus Vaccine Recomb Quad IM, Preserv and ABX Free 18-64 YRS 2020-05-16 00:00:00 Completed [facility] Influenza Virus Vaccine Recomb Quad IM, Preserv and ABX Free 18-64 YRS 2020-05-16 00:00:00 Completed [facility] Influenza Virus Vaccine Recomb Quad IM, Preserv and ABX Free 18-64 YRS 2020-05-16 00:00:00 Completed [facility] Influenza Virus Vaccine Recomb Quad IM, Preserv and ABX Free 18-64 YRS 2020-05-16 00:00:00 Completed [facility] Influenza Virus Vaccine Recomb Quad IM, Preserv and ABX Free 18-64 YRS 2020-05-16 00:00:00 Completed [facility] Influenza Virus Vaccine Recomb Quad IM, Preserv and ABX Free 18-64 YRS 2020-05-16 00:00:00 Completed [facility] Influenza Virus Vaccine Recomb Quad IM, Preserv and ABX Free 18-64 YRS 2020-05-16 00:00:00 Completed [facility] Influenza Virus Vaccine Recomb Quad IM, Preserv and ABX Free 18-64 YRS 2020-05-16 00:00:00 Completed [facility] Influenza Virus Vaccine Recomb Quad IM, Preserv and ABX Free 18-64 YRS 2020-05-16 00:00:00 Completed [facility] Influenza Virus Vaccine Recomb Quad IM, Preserv and ABX Free 18-64 YRS 2020-05-16 00:00:00 Completed [facility] Influenza Virus Vaccine Recomb Quad IM, Preserv and ABX Free 18-64 YRS 2020-05-16 00:00:00 Completed [facility] Influenza Virus Vaccine Recomb Quad IM, Preserv and ABX Free 18-64 YRS 2020-05-16 00:00:00 Completed [facility] Influenza Virus Vaccine Recomb Quad IM, Preserv and ABX Free 18-64 YRS 2020-05-16 00:00:00 Completed [facility] Influenza Virus Vaccine Recomb Quad IM, Preserv and ABX Free 18-64 YRS 2020-05-16 00:00:00 Completed [facility] Influenza Virus Vaccine Recomb Quad IM, Preserv and ABX Free 18-64 YRS 2020-05-16 00:00:00 Completed [facility] TDAP (ADACEL) VACCINE 2019-05-21 00:00:00 Completed [facility] TDAP (ADACEL) VACCINE 2019-05-21 00:00:00 Completed [facility] TDAP (ADACEL) VACCINE 2019-05-21 00:00:00 Completed [facility] TDAP (ADACEL) VACCINE 2019-05-21 00:00:00 Completed [facility] TDAP (ADACEL) VACCINE 2019-05-21 00:00:00 Completed [facility] TDAP (ADACEL) VACCINE 2019-05-21 00:00:00 Completed [facility] TDAP (ADACEL) VACCINE 2019-05-21 00:00:00 Completed [facility] TDAP (ADACEL) VACCINE 2019-05-21 00:00:00 Completed [facility] TDAP (ADACEL) VACCINE 2019-05-21 00:00:00 Completed [facility] TDAP (ADACEL) VACCINE 2019-05-21 00:00:00 Completed [facility] TDAP (ADACEL) VACCINE 2019-05-21 00:00:00 Completed [facility] TDAP (ADACEL) VACCINE 2019-05-21 00:00:00 Completed [facility] TDAP (ADACEL) VACCINE 2019-05-21 00:00:00 Completed [facility] TDAP (ADACEL) VACCINE 2019-05-21 00:00:00 Completed [facility] TDAP (ADACEL) VACCINE 2019-05-21 00:00:00 Completed [facility] TDAP (ADACEL) VACCINE 2019-05-21 00:00:00 Completed [facility] TDAP (ADACEL) VACCINE 2019-05-21 00:00:00 Completed [facility] TDAP (ADACEL) VACCINE 2019-05-21 00:00:00 Completed [facility] TDAP (ADACEL) VACCINE 2019-05-21 00:00:00 Completed [facility] TDAP (ADACEL) VACCINE 2019-05-21 00:00:00 Completed [facility] TDAP (ADACEL) VACCINE 2019-05-21 00:00:00 Completed [facility] TDAP (ADACEL) VACCINE 2019-05-21 00:00:00 Completed [facility] TDAP (ADACEL) VACCINE 2019-05-21 00:00:00 Completed [facility] TDAP (ADACEL) VACCINE 2019-05-21 00:00:00 Completed [facility] TDAP (ADACEL) VACCINE 2019-05-21 00:00:00 Completed [facility] TDAP (ADACEL) VACCINE 2019-05-21 00:00:00 Completed [facility] TDAP (ADACEL) VACCINE 2019-05-21 00:00:00 Completed [facility] TDAP (ADACEL) VACCINE 2019-05-21 00:00:00 Completed [facility] TDAP (ADACEL) VACCINE 2019-05-21 00:00:00 Completed [facility] TDAP (ADACEL) VACCINE 2019-05-21 00:00:00 Completed [facility] TDAP (ADACEL) VACCINE 2019-05-21 00:00:00 Completed [facility] TDAP (ADACEL) VACCINE 2019-05-21 00:00:00 Completed [facility] TDAP (ADACEL) VACCINE 2019-05-21 00:00:00 Completed [facility] TDAP (ADACEL) VACCINE 2019-05-21 00:00:00 Completed [facility] TDAP (ADACEL) VACCINE 2019-05-21 00:00:00 Completed [facility] TDAP (ADACEL) VACCINE 2019-05-21 00:00:00 Completed [facility] TDAP (ADACEL) VACCINE 2019-05-21 00:00:00 Completed [facility] TDAP (ADACEL) VACCINE 2019-05-21 00:00:00 Completed [facility] TDAP (ADACEL) VACCINE 2019-05-21 00:00:00 Completed [facility] TDAP (ADACEL) VACCINE 2019-05-21 00:00:00 Completed [facility] TDAP (ADACEL) VACCINE 2019-05-21 00:00:00 Completed [facility] TDAP (ADACEL) VACCINE 2019-05-21 00:00:00 Completed [facility] TDAP (ADACEL) VACCINE 2019-05-21 00:00:00 Completed [facility] TDAP (ADACEL) VACCINE 2019-05-21 00:00:00 Completed [facility] TDAP (ADACEL) VACCINE 2019-05-21 00:00:00 Completed [facility] TDAP (ADACEL) VACCINE 2019-05-21 00:00:00 Completed [facility] TDAP (ADACEL) VACCINE 2019-05-21 00:00:00 Completed [facility] TDAP (ADACEL) VACCINE 2019-05-21 00:00:00 Completed [facility] TDAP (ADACEL) VACCINE 2019-05-21 00:00:00 Completed [facility] TDAP (ADACEL) VACCINE 2019-05-21 00:00:00 Completed [facility] TDAP (ADACEL) VACCINE 2019-05-21 00:00:00 Completed [facility] TDAP (ADACEL) VACCINE 2019-05-21 00:00:00 Completed [facility] TDAP (ADACEL) VACCINE 2019-05-21 00:00:00 Completed [facility] TDAP (ADACEL) VACCINE 2019-05-21 00:00:00 Completed [facility] TDAP (ADACEL) VACCINE 2019-05-21 00:00:00 Completed [facility] Influenza Virus Vaccine Quad .5 mL IM 6+ MO 2019-02-06 00:00:00 Completed [facility] Influenza Virus Vaccine Quad .5 mL IM 6+ MO 2019-02-06 00:00:00 Completed [facility] Influenza Virus Vaccine Quad .5 mL IM 6+ MO 2019-02-06 00:00:00 Completed [facility] Influenza Virus Vaccine Quad .5 mL IM 6+ MO 2019-02-06 00:00:00 Completed [facility] Influenza Virus Vaccine Quad .5 mL IM 6+ MO 2019-02-06 00:00:00 Completed [facility] Influenza Virus Vaccine Quad .5 mL IM 6+ MO 2019-02-06 00:00:00 Completed [facility] Influenza Virus Vaccine Quad .5 mL IM 6+ MO 2019-02-06 00:00:00 Completed [facility] Influenza Virus Vaccine Quad .5 mL IM 6+ MO 2019-02-06 00:00:00 Completed [facility] Influenza Virus Vaccine Quad .5 mL IM 6+ MO 2019-02-06 00:00:00 Completed [facility] Influenza Virus Vaccine Quad .5 mL IM 6+ MO 2019-02-06 00:00:00 Completed [facility] Influenza Virus Vaccine Quad .5 mL IM 6+ MO 2019-02-06 00:00:00 Completed [facility] Influenza Virus Vaccine Quad .5 mL IM 6+ MO 2019-02-06 00:00:00 Completed [facility] Influenza Virus Vaccine Quad .5 mL IM 6+ MO 2019-02-06 00:00:00 Completed [facility] Influenza Virus Vaccine Quad .5 mL IM 6+ MO 2019-02-06 00:00:00 Completed [facility] Influenza Virus Vaccine Quad .5 mL IM 6+ MO 2019-02-06 00:00:00 Completed [facility] Influenza Virus Vaccine Quad .5 mL IM 6+ MO 2019-02-06 00:00:00 Completed [facility] Influenza Virus Vaccine Quad .5 mL IM 6+ MO 2019-02-06 00:00:00 Completed [facility] Influenza Virus Vaccine Quad .5 mL IM 6+ MO 2019-02-06 00:00:00 Completed [facility] Influenza Virus Vaccine Quad .5 mL IM 6+ MO 2019-02-06 00:00:00 Completed [facility] Influenza Virus Vaccine Quad .5 mL IM 6+ MO 2019-02-06 00:00:00 Completed [facility] Influenza Virus Vaccine Quad .5 mL IM 6+ MO 2019-02-06 00:00:00 Completed [facility] Influenza Virus Vaccine Quad .5 mL IM 6+ MO 2019-02-06 00:00:00 Completed [facility] Influenza Virus Vaccine Quad .5 mL IM 6+ MO 2019-02-06 00:00:00 Completed [facility] Influenza Virus Vaccine Quad .5 mL IM 6+ MO 2019-02-06 00:00:00 Completed [facility] Influenza Virus Vaccine Quad .5 mL IM 6+ MO 2019-02-06 00:00:00 Completed [facility] Influenza Virus Vaccine Quad .5 mL IM 6+ MO 2019-02-06 00:00:00 Completed [facility] Influenza Virus Vaccine Quad .5 mL IM 6+ MO 2019-02-06 00:00:00 Completed [facility] Influenza Virus Vaccine Quad .5 mL IM 6+ MO 2019-02-06 00:00:00 Completed [facility] Influenza Virus Vaccine Quad .5 mL IM 6+ MO 2019-02-06 00:00:00 Completed [facility] Influenza Virus Vaccine Quad .5 mL IM 6+ MO 2019-02-06 00:00:00 Completed [facility] Influenza Virus Vaccine Quad .5 mL IM 6+ MO 2019-02-06 00:00:00 Completed [facility] Influenza Virus Vaccine Quad .5 mL IM 6+ MO 2019-02-06 00:00:00 Completed [facility] Influenza Virus Vaccine Quad .5 mL IM 6+ MO 2019-02-06 00:00:00 Completed [facility] Influenza Virus Vaccine Quad .5 mL IM 6+ MO 2019-02-06 00:00:00 Completed [facility] Influenza Virus Vaccine Quad .5 mL IM 6+ MO 2019-02-06 00:00:00 Completed [facility] Influenza Virus Vaccine Quad .5 mL IM 6+ MO 2019-02-06 00:00:00 Completed [facility] Influenza Virus Vaccine Quad .5 mL IM 6+ MO 2019-02-06 00:00:00 Completed [facility] Influenza Virus Vaccine Quad .5 mL IM 6+ MO 2019-02-06 00:00:00 Completed [facility] Influenza Virus Vaccine Quad .5 mL IM 6+ MO 2019-02-06 00:00:00 Completed [facility] Influenza Virus Vaccine Quad .5 mL IM 6+ MO 2019-02-06 00:00:00 Completed [facility] Influenza Virus Vaccine Quad .5 mL IM 6+ MO 2019-02-06 00:00:00 Completed [facility] Influenza Virus Vaccine Quad .5 mL IM 6+ MO 2019-02-06 00:00:00 Completed [facility] Influenza Virus Vaccine Quad .5 mL IM 6+ MO 2019-02-06 00:00:00 Completed [facility] Influenza Virus Vaccine Quad .5 mL IM 6+ MO 2019-02-06 00:00:00 Completed [facility] Influenza Virus Vaccine Quad .5 mL IM 6+ MO 2019-02-06 00:00:00 Completed [facility] Influenza Virus Vaccine Quad .5 mL IM 6+ MO 2019-02-06 00:00:00 Completed [facility] Influenza Virus Vaccine Quad .5 mL IM 6+ MO 2019-02-06 00:00:00 Completed [facility] Influenza Virus Vaccine Quad .5 mL IM 6+ MO 2019-02-06 00:00:00 Completed [facility] Influenza Virus Vaccine Quad .5 mL IM 6+ MO 2019-02-06 00:00:00 Completed [facility] Influenza Virus Vaccine Quad .5 mL IM 6+ MO 2019-02-06 00:00:00 Completed [facility] Influenza Virus Vaccine Quad .5 mL IM 6+ MO 2019-02-06 00:00:00 Completed [facility] Influenza Virus Vaccine Quad .5 mL IM 6+ MO 2019-02-06 00:00:00 Completed [facility] Influenza Virus Vaccine Quad .5 mL IM 6+ MO (FLUZONE/FLULAVAL/F LUARIX) 2019-02-06 00:00:00 Completed [facility] Influenza Virus Vaccine Quad .5 mL IM 6+ MO (FLUZONE/FLULAVAL/F LUARIX) 2019-02-06 00:00:00 Completed [facility] Influenza Virus Vaccine Quad .5 mL IM 6+ MO (FLUZONE/FLULAVAL/F LUARIX) 2019-02-06 00:00:00 Completed [facility] Influenza Virus Vaccine Quad .5 mL IM 6+ MO (FLUZONE/FLULAVAL/F LUARIX) Unknown Completed [facility] TDAP (ADACEL) VACCINE Unknown Completed [facility] Influenza Virus Vaccine Recomb Quad IM, Preserv and ABX Free 18-64 YRS Unknown Completed [facility] Influenza Virus Vaccine Unknown Completed [facility] Influenza Virus Vaccine Quad IM, Preserv and ABX Free 6 MO-64 YRS (FLUCELVAX) Unknown Completed [facility] Influenza Virus Vaccine Quad .5 mL IM 6+ MO (FLUZONE/FLULAVAL/F LUARIX) Unknown Completed [facility] TDAP (ADACEL) VACCINE Unknown Completed [facility] Influenza Virus Vaccine Recomb Quad IM, Preserv and ABX Free 18-64 YRS Unknown Completed [facility] Influenza Virus Vaccine Unknown Completed [facility] Influenza Virus Vaccine Quad IM, Preserv and ABX Free 6 MO-64 YRS (FLUCELVAX) Unknown Completed [facility] Influenza Virus Vaccine Quad .5 mL IM 6+ MO (FLUZONE/FLULAVAL/F LUARIX) Unknown Completed [facility] TDAP (ADACEL) VACCINE Unknown Completed [facility] Influenza Virus Vaccine Recomb Quad IM, Preserv and ABX Free 18-64 YRS Unknown Completed [facility] Influenza Virus Vaccine Unknown Completed [facility] Influenza Virus Vaccine Quad .5 mL IM 6+ MO (FLUZONE/FLULAVAL/F LUARIX) Unknown Completed [facility] TDAP (ADACEL) VACCINE Unknown Completed [facility] Influenza Virus Vaccine Recomb Quad IM, Preserv and ABX Free 18-64 YRS Unknown Completed [facility] Influenza Virus Vaccine Unknown Completed [facility] Influenza Virus Vaccine Quad .5 mL IM 6+ MO (FLUZONE/FLULAVAL/F LUARIX) Unknown Completed [facility] TDAP (ADACEL) VACCINE Unknown Completed [facility] Influenza Virus Vaccine Recomb Quad IM, Preserv and ABX Free 18-64 YRS Unknown Completed [facility] Influenza Virus Vaccine Unknown Completed [facility] Influenza Virus Vaccine Quad .5 mL IM 6+ MO (FLUZONE/FLULAVAL/F LUARIX) Unknown Completed [facility] TDAP (ADACEL) VACCINE Unknown Completed [facility] Influenza Virus Vaccine Recomb Quad IM, Preserv and ABX Free 18-64 YRS Unknown Completed [facility] Influenza Virus Vaccine Unknown Completed [facility] Influenza Virus Vaccine Quad .5 mL IM 6+ MO (FLUZONE/FLULAVAL/F LUARIX) Unknown Completed [facility] TDAP (ADACEL) VACCINE Unknown Completed [facility] Influenza Virus Vaccine Recomb Quad IM, Preserv and ABX Free 18-64 YRS Unknown Completed [facility] Influenza Virus Vaccine Unknown Completed [facility] Influenza Virus Vaccine Quad .5 mL IM 6+ MO (FLUZONE/FLULAVAL/F LUARIX) Unknown Completed [facility] TDAP (ADACEL) VACCINE Unknown Completed [facility] Influenza Virus Vaccine Recomb Quad IM, Preserv and ABX Free 18-64 YRS Unknown Completed [facility] Influenza Virus Vaccine Unknown Completed [facility] Influenza Virus Vaccine Quad .5 mL IM 6+ MO (FLUZONE/FLULAVAL/F LUARIX) Unknown Completed [facility] TDAP (ADACEL) VACCINE Unknown Completed [facility] Influenza Virus Vaccine Recomb Quad IM, Preserv and ABX Free 18-64 YRS Unknown Completed [facility] Influenza Virus Vaccine Unknown Completed [facility] Influenza Virus Vaccine Quad .5 mL IM 6+ MO (FLUZONE/FLULAVAL/F LUARIX) Unknown Completed [facility] TDAP (ADACEL) VACCINE Unknown Completed [facility] Influenza Virus Vaccine Recomb Quad IM, Preserv and ABX Free 18-64 YRS Unknown Completed [facility] Influenza Virus Vaccine Unknown Completed [facility] Influenza Virus Vaccine Quad .5 mL IM 6+ MO (FLUZONE/FLULAVAL/F LUARIX) Unknown Completed [facility] TDAP (ADACEL) VACCINE Unknown Completed [facility] Influenza Virus Vaccine Recomb Quad IM, Preserv and ABX Free 18-64 YRS Unknown Completed [facility] Influenza Virus Vaccine Unknown Completed [facility] Influenza Virus Vaccine Quad .5 mL IM 6+ MO (FLUZONE/FLULAVAL/F LUARIX) Unknown Completed [facility] TDAP (ADACEL) VACCINE Unknown Completed [facility] Influenza Virus Vaccine Recomb Quad IM, Preserv and ABX Free 18-64 YRS Unknown Completed [facility] Influenza Virus Vaccine Unknown Completed [facility] Influenza Virus Vaccine Quad .5 mL IM 6+ MO (FLUZONE/FLULAVAL/F LUARIX) Unknown Completed [facility] TDAP (ADACEL) VACCINE Unknown Completed [facility] Influenza Virus Vaccine Recomb Quad IM, Preserv and ABX Free 18-64 YRS Unknown Completed [facility] Influenza Virus Vaccine Unknown Completed [facility] Influenza Virus Vaccine Quad .5 mL IM 6+ MO (FLUZONE/FLULAVAL/F LUARIX) Unknown Completed [facility] TDAP (ADACEL) VACCINE Unknown Completed [facility] Influenza Virus Vaccine Recomb Quad IM, Preserv and ABX Free 18-64 YRS Unknown Completed [facility] Influenza Virus Vaccine Unknown Completed [facility] Influenza Virus Vaccine Quad .5 mL IM 6+ MO (FLUZONE/FLULAVAL/F LUARIX) Unknown Completed [facility] TDAP (ADACEL) VACCINE Unknown Completed [facility] Influenza Virus Vaccine Recomb Quad IM, Preserv and ABX Free 18-64 YRS Unknown Completed [facility] Influenza Virus Vaccine Unknown Completed [facility] Influenza Virus Vaccine Quad .5 mL IM 6+ MO (FLUZONE/FLULAVAL/F LUARIX) Unknown Completed [facility] TDAP (ADACEL) VACCINE Unknown Completed [facility] Influenza Virus Vaccine Recomb Quad IM, Preserv and ABX Free 18-64 YRS Unknown Completed [facility] Influenza Virus Vaccine Unknown Completed [facility] Influenza Virus Vaccine Quad .5 mL IM 6+ MO (FLUZONE/FLULAVAL/F LUARIX) Unknown Completed [facility] TDAP (ADACEL) VACCINE Unknown Completed [facility] Influenza Virus Vaccine Recomb Quad IM, Preserv and ABX Free 18-64 YRS Unknown Completed [facility] Influenza Virus Vaccine Unknown Completed [facility] Influenza Virus Vaccine Quad .5 mL IM 6+ MO (FLUZONE/FLULAVAL/F LUARIX) Unknown Completed [facility] TDAP (ADACEL) VACCINE Unknown Completed [facility] Influenza Virus Vaccine Recomb Quad IM, Preserv and ABX Free 18-64 YRS Unknown Completed [facility] Influenza Virus Vaccine Unknown Completed [facility] Influenza Virus Vaccine Quad .5 mL IM 6+ MO (FLUZONE/FLULAVAL/F LUARIX) Unknown Completed [facility] TDAP (ADACEL) VACCINE Unknown Completed [facility] Influenza Virus Vaccine Recomb Quad IM, Preserv and ABX Free 18-64 YRS Unknown Completed [facility] Influenza Virus Vaccine Unknown Completed [facility] Influenza Virus Vaccine Quad .5 mL IM 6+ MO (FLUZONE/FLULAVAL/F LUARIX) Unknown Completed [facility] TDAP (ADACEL) VACCINE Unknown Completed [facility] Influenza Virus Vaccine Recomb Quad IM, Preserv and ABX Free 18-64 YRS Unknown Completed [facility] Influenza Virus Vaccine Unknown Completed [facility] Influenza Virus Vaccine Quad .5 mL IM 6+ MO (FLUZONE/FLULAVAL/F LUARIX) Unknown Completed [facility] TDAP (ADACEL) VACCINE Unknown Completed [facility] Influenza Virus Vaccine Recomb Quad IM, Preserv and ABX Free 18-64 YRS Unknown Completed [facility] Influenza Virus Vaccine Unknown Completed [facility] Influenza Virus Vaccine Quad .5 mL IM 6+ MO (FLUZONE/FLULAVAL/F LUARIX) Unknown Completed [facility] TDAP (ADACEL) VACCINE Unknown Completed [facility] Influenza Virus Vaccine Recomb Quad IM, Preserv and ABX Free 18-64 YRS Unknown Completed [facility] Influenza Virus Vaccine Unknown Completed [facility] Influenza Virus Vaccine Quad .5 mL IM 6+ MO (FLUZONE/FLULAVAL/F LUARIX) Unknown Completed [facility] TDAP (ADACEL) VACCINE Unknown Completed [facility] Influenza Virus Vaccine Recomb Quad IM, Preserv and ABX Free 18-64 YRS Unknown Completed [facility] Influenza Virus Vaccine Unknown Completed [facility] Influenza Virus Vaccine Quad .5 mL IM 6+ MO (FLUZONE/FLULAVAL/F LUARIX) Unknown Completed [facility] TDAP (ADACEL) VACCINE Unknown Completed [facility] Influenza Virus Vaccine Recomb Quad IM, Preserv and ABX Free 18-64 YRS Unknown Completed [facility] Influenza Virus Vaccine Unknown Completed [facility] Influenza Virus Vaccine Quad .5 mL IM 6+ MO (FLUZONE/FLULAVAL/F LUARIX) Unknown Completed [facility] TDAP (ADACEL) VACCINE Unknown Completed [facility] Influenza Virus Vaccine Recomb Quad IM, Preserv and ABX Free 18-64 YRS Unknown Completed [facility] Influenza Virus Vaccine Unknown Completed [facility] Influenza Virus Vaccine Quad .5 mL IM 6+ MO (FLUZONE/FLULAVAL/F LUARIX) Unknown Completed [facility] TDAP (ADACEL) VACCINE Unknown Completed [facility] Influenza Virus Vaccine Recomb Quad IM, Preserv and ABX Free 18-64 YRS Unknown Completed [facility] Influenza Virus Vaccine Unknown Completed [facility] Influenza Virus Vaccine Quad .5 mL IM 6+ MO (FLUZONE/FLULAVAL/F LUARIX) Unknown Completed [facility] TDAP (ADACEL) VACCINE Unknown Completed [facility] Influenza Virus Vaccine Recomb Quad IM, Preserv and ABX Free 18-64 YRS Unknown Completed [facility] Influenza Virus Vaccine Unknown Completed [facility] Influenza Virus Vaccine Quad .5 mL IM 6+ MO (FLUZONE/FLULAVAL/F LUARIX) Unknown Completed [facility] TDAP (ADACEL) VACCINE Unknown Completed [facility] Influenza Virus Vaccine Recomb Quad IM, Preserv and ABX Free 18-64 YRS Unknown Completed [facility] Influenza Virus Vaccine Unknown Completed [facility] Influenza Virus Vaccine Quad .5 mL IM 6+ MO (FLUZONE/FLULAVAL/F LUARIX) Unknown Completed [facility] TDAP (ADACEL) VACCINE Unknown Completed [facility] Influenza Virus Vaccine Recomb Quad IM, Preserv and ABX Free 18-64 YRS Unknown Completed [facility] Influenza Virus Vaccine Unknown Completed [facility] Influenza Virus Vaccine Quad .5 mL IM 6+ MO (FLUZONE/FLULAVAL/F LUARIX) Unknown Completed [facility] TDAP (ADACEL) VACCINE Unknown Completed [facility] Influenza Virus Vaccine Recomb Quad IM, Preserv and ABX Free 18-64 YRS Unknown Completed [facility] Influenza Virus Vaccine Unknown Completed [facility] Influenza Virus Vaccine Quad .5 mL IM 6+ MO (FLUZONE/FLULAVAL/F LUARIX) Unknown Completed [facility] TDAP (ADACEL) VACCINE Unknown Completed [facility] Influenza Virus Vaccine Recomb Quad IM, Preserv and ABX Free 18-64 YRS Unknown Completed [facility] Influenza Virus Vaccine Unknown Completed [facility] Influenza Virus Vaccine Quad .5 mL IM 6+ MO (FLUZONE/FLULAVAL/F LUARIX) Unknown Completed [facility] TDAP (ADACEL) VACCINE Unknown Completed [facility] Influenza Virus Vaccine Recomb Quad IM, Preserv and ABX Free 18-64 YRS Unknown Completed [facility] Influenza Virus Vaccine Unknown Completed [facility] Influenza Virus Vaccine Quad .5 mL IM 6+ MO (FLUZONE/FLULAVAL/F LUARIX) Unknown Completed [facility] TDAP (ADACEL) VACCINE Unknown Completed [facility] Influenza Virus Vaccine Recomb Quad IM, Preserv and ABX Free 18-64 YRS Unknown Completed [facility] Influenza Virus Vaccine Unknown Completed [facility] Influenza Virus Vaccine Quad .5 mL IM 6+ MO (FLUZONE/FLULAVAL/F LUARIX) Unknown Completed [facility] TDAP (ADACEL) VACCINE Unknown Completed [facility] Influenza Virus Vaccine Recomb Quad IM, Preserv and ABX Free 18-64 YRS Unknown Completed [facility] Influenza Virus Vaccine Unknown Completed [facility] Influenza Virus Vaccine Quad .5 mL IM 6+ MO (FLUZONE/FLULAVAL/F LUARIX) Unknown Completed [facility] TDAP (ADACEL) VACCINE Unknown Completed [facility] Influenza Virus Vaccine Recomb Quad IM, Preserv and ABX Free 18-64 YRS Unknown Completed [facility] Influenza Virus Vaccine Unknown Completed [facility] Influenza Virus Vaccine Quad .5 mL IM 6+ MO (FLUZONE/FLULAVAL/F LUARIX) Unknown Completed [facility] TDAP (ADACEL) VACCINE Unknown Completed [facility] Influenza Virus Vaccine Recomb Quad IM, Preserv and ABX Free 18-64 YRS Unknown Completed [facility] Influenza Virus Vaccine Unknown Completed [facility] Influenza Virus Vaccine Quad .5 mL IM 6+ MO (FLUZONE/FLULAVAL/F LUARIX) Unknown Completed [facility] TDAP (ADACEL) VACCINE Unknown Completed [facility] Influenza Virus Vaccine Recomb Quad IM, Preserv and ABX Free 18-64 YRS Unknown Completed [facility] Influenza Virus Vaccine Unknown Completed [facility] Influenza Virus Vaccine Quad .5 mL IM 6+ MO (FLUZONE/FLULAVAL/F LUARIX) Unknown Completed [facility] TDAP (ADACEL) VACCINE Unknown Completed [facility] Influenza Virus Vaccine Recomb Quad IM, Preserv and ABX Free 18-64 YRS Unknown Completed [facility] Influenza Virus Vaccine Unknown Completed [facility] Influenza Virus Vaccine Quad .5 mL IM 6+ MO (FLUZONE/FLULAVAL/F LUARIX) Unknown Completed [facility] TDAP (ADACEL) VACCINE Unknown Completed [facility] Influenza Virus Vaccine Recomb Quad IM, Preserv and ABX Free 18-64 YRS Unknown Completed [facility] Influenza Virus Vaccine Unknown Completed [facility] Influenza Virus Vaccine Quad .5 mL IM 6+ MO (FLUZONE/FLULAVAL/F LUARIX) Unknown Completed [facility] TDAP (ADACEL) VACCINE Unknown Completed [facility] Influenza Virus Vaccine Recomb Quad IM, Preserv and ABX Free 18-64 YRS Unknown Completed [facility] Influenza Virus Vaccine Unknown Completed [facility] Influenza Virus Vaccine Quad .5 mL IM 6+ MO (FLUZONE/FLULAVAL/F LUARIX) Unknown Completed [facility] TDAP (ADACEL) VACCINE Unknown Completed [facility] Influenza Virus Vaccine Recomb Quad IM, Preserv and ABX Free 18-64 YRS Unknown Completed [facility] Influenza Virus Vaccine Unknown Completed [facility] Influenza Virus Vaccine Quad .5 mL IM 6+ MO (FLUZONE/FLULAVAL/F LUARIX) Unknown Completed [facility] TDAP (ADACEL) VACCINE Unknown Completed [facility] Influenza Virus Vaccine Recomb Quad IM, Preserv and ABX Free 18-64 YRS Unknown Completed [facility] Influenza Virus Vaccine Unknown Completed [facility] Influenza Virus Vaccine Quad .5 mL IM 6+ MO (FLUZONE/FLULAVAL/F LUARIX) Unknown Completed [facility] TDAP (ADACEL) VACCINE Unknown Completed [facility] Influenza Virus Vaccine Recomb Quad IM, Preserv and ABX Free 18-64 YRS Unknown Completed [facility] Influenza Virus Vaccine Unknown Completed [facility] Influenza Virus Vaccine Quad .5 mL IM 6+ MO (FLUZONE/FLULAVAL/F LUARIX) Unknown Completed [facility] TDAP (ADACEL) VACCINE Unknown Completed [facility] Influenza Virus Vaccine Recomb Quad IM, Preserv and ABX Free 18-64 YRS Unknown Completed [facility] Influenza Virus Vaccine Unknown Completed [facility] Influenza Virus Vaccine Quad .5 mL IM 6+ MO (FLUZONE/FLULAVAL/F LUARIX) Unknown Completed [facility] TDAP (ADACEL) VACCINE Unknown Completed [facility] Influenza Virus Vaccine Recomb Quad IM, Preserv and ABX Free 18-64 YRS Unknown Completed [facility] Influenza Virus Vaccine Unknown Completed [facility] Influenza Virus Vaccine Quad .5 mL IM 6+ MO (FLUZONE/FLULAVAL/F LUARIX) Unknown Completed [facility] TDAP (ADACEL) VACCINE Unknown Completed [facility] Influenza Virus Vaccine Recomb Quad IM, Preserv and ABX Free 18-64 YRS Unknown Completed [facility] Influenza Virus Vaccine Unknown Completed [facility] Influenza Virus Vaccine Quad .5 mL IM 6+ MO (FLUZONE/FLULAVAL/F LUARIX) Unknown Completed [facility] TDAP (ADACEL) VACCINE Unknown Completed [facility] Influenza Virus Vaccine Recomb Quad IM, Preserv and ABX Free 18-64 YRS Unknown Completed [facility] Influenza Virus Vaccine Unknown Completed [facility] Influenza Virus Vaccine Quad .5 mL IM 6+ MO (FLUZONE/FLULAVAL/F LUARIX) Unknown Completed [facility] TDAP (ADACEL) VACCINE Unknown Completed [facility] Influenza Virus Vaccine Recomb Quad IM, Preserv and ABX Free 18-64 YRS Unknown Completed [facility] Influenza Virus Vaccine Unknown Completed [facility] Influenza Virus Vaccine Quad .5 mL IM 6+ MO (FLUZONE/FLULAVAL/F LUARIX) Unknown Completed [facility] TDAP (ADACEL) VACCINE Unknown Completed [facility] Influenza Virus Vaccine Recomb Quad IM, Preserv and ABX Free 18-64 YRS Unknown Completed [facility] Influenza Virus Vaccine Unknown Completed [facility] Influenza Virus Vaccine Quad .5 mL IM 6+ MO (FLUZONE/FLULAVAL/F LUARIX) Unknown Completed [facility] TDAP (ADACEL) VACCINE Unknown Completed [facility] Influenza Virus Vaccine Recomb Quad IM, Preserv and ABX Free 18-64 YRS Unknown Completed [facility] Influenza Virus Vaccine Unknown Completed [facility] Influenza Virus Vaccine Quad .5 mL IM 6+ MO (FLUZONE/FLULAVAL/F LUARIX) Unknown Completed [facility] TDAP (ADACEL) VACCINE Unknown Completed [facility] Influenza Virus Vaccine Recomb Quad IM, Preserv and ABX Free 18-64 YRS Unknown Completed [facility] Influenza Virus Vaccine Unknown Completed [facility] Influenza Virus Vaccine Quad .5 mL IM 6+ MO (FLUZONE/FLULAVAL/F LUARIX) Unknown Completed [facility] TDAP (ADACEL) VACCINE Unknown Completed [facility] Influenza Virus Vaccine Recomb Quad IM, Preserv and ABX Free 18-64 YRS Unknown Completed [facility] Influenza Virus Vaccine Unknown Completed [facility] Influenza Virus Vaccine Quad .5 mL IM 6+ MO (FLUZONE/FLULAVAL/F LUARIX) Unknown Completed [facility] TDAP (ADACEL) VACCINE Unknown Completed [facility] Influenza Virus Vaccine Recomb Quad IM, Preserv and ABX Free 18-64 YRS Unknown Completed [facility] Influenza Virus Vaccine Unknown Completed [facility] Influenza Virus Vaccine Quad .5 mL IM 6+ MO (FLUZONE/FLULAVAL/F LUARIX) Unknown Completed [facility] TDAP (ADACEL) VACCINE Unknown Completed [facility] Influenza Virus Vaccine Recomb Quad IM, Preserv and ABX Free 18-64 YRS Unknown Completed [facility] Influenza Virus Vaccine Unknown Completed [facility] Influenza Virus Vaccine Quad .5 mL IM 6+ MO (FLUZONE/FLULAVAL/F LUARIX) Unknown Completed [facility] TDAP (ADACEL) VACCINE Unknown Completed [facility] Influenza Virus Vaccine Quad .5 mL IM 6+ MO (FLUZONE/FLULAVAL/F LUARIX) Unknown Completed [facility] TDAP (ADACEL) VACCINE Unknown Completed [facility] Influenza Virus Vaccine Quad .5 mL IM 6+ MO (FLUZONE/FLULAVAL/F LUARIX) Unknown Completed [facility] TDAP (ADACEL) VACCINE Unknown Completed [facility] Influenza Virus Vaccine Quad .5 mL IM 6+ MO (FLUZONE/FLULAVAL/F LUARIX) Unknown Completed [facility] TDAP (ADACEL) VACCINE Unknown Completed [facility] Influenza Virus Vaccine Quad .5 mL IM 6+ MO (FLUZONE/FLULAVAL/F LUARIX) Unknown Completed [facility] TDAP (ADACEL) VACCINE Unknown Completed [facility] Influenza Virus Vaccine Quad .5 mL IM 6+ MO (FLUZONE/FLULAVAL/F LUARIX) Unknown Completed [facility] TDAP (ADACEL) VACCINE Unknown Completed [facility] Influenza Virus Vaccine Quad .5 mL IM 6+ MO (FLUZONE/FLULAVAL/F LUARIX) Unknown Completed [facility] TDAP (ADACEL) VACCINE Unknown Completed [facility] Influenza Virus Vaccine Quad .5 mL IM 6+ MO (FLUZONE/FLULAVAL/F LUARIX) Unknown Completed [facility] TDAP (ADACEL) VACCINE Unknown Completed [facility] Influenza Virus Vaccine Quad .5 mL IM 6+ MO (FLUZONE/FLULAVAL/F LUARIX) Unknown Completed [facility] TDAP (ADACEL) VACCINE Unknown Completed [facility] Influenza Virus Vaccine Quad .5 mL IM 6+ MO (FLUZONE/FLULAVAL/F LUARIX) Unknown Completed [facility] TDAP (ADACEL) VACCINE Unknown Completed [facility] [facility] Recomb Quad IM, Preserv and ABX Free 18-64 YRS Unknown Completed [facility] Influenza Virus Vaccine Unknown Completed [facility] Influenza Virus Vaccine Quad IM, Preserv and ABX Free 6 MO-64 YRS (FLUCELVAX) Unknown Completed [facility] Influenza Virus Vaccine Quad .5 mL IM 6+ MO (FLUZONE/FLULAVAL/F LUARIX) Unknown Completed [facility] TDAP (ADACEL) VACCINE Unknown Completed [facility] Influenza Virus Vaccine Recomb Quad IM, Preserv and ABX Free 18-64 YRS Unknown Completed [facility] Influenza Virus Vaccine Unknown Completed [facility] Influenza Virus Vaccine Quad IM, Preserv and ABX Free 6 MO-64 YRS (FLUCELVAX) Unknown Completed [facility] Influenza Virus Vaccine Quad .5 mL IM 6+ MO (FLUZONE/FLULAVAL/F LUARIX) Unknown Completed [facility] TDAP (ADACEL) VACCINE Unknown Completed [facility] Influenza Virus Vaccine Recomb Quad IM, Preserv and ABX Free 18-64 YRS Unknown Completed [facility] Influenza Virus Vaccine Unknown Completed [facility] Influenza Virus Vaccine Quad IM, Preserv and ABX Free 6 MO-64 YRS (FLUCELVAX) Unknown Completed [facility] Vital Signs Vital Name Observation Time Observation Value Comments S ource Systolic blood pressure 2024-08-02 17:21:00 119 mm[Hg] [facility] Diastolic blood pressure 2024-08-02 17:21:00 81 mm[Hg] [facility] Heart rate 2024-08-02 17:21:00 88 /min [facility] Body temperature 2024-08-02 17:21:00 36.78 Irene [facility] Respiratory rate 2024-08-02 17:21:00 16 /min [facility] Oxygen saturation in Arterial blood by Pulse oximetry 2024-08-02 17:21:00 100 /min [facility] Body height 2024-08-02 15:11:[address] [facility] Body weight 2024-08-02 15:11:[address] [facility] BMI 2024-08-02 15:11:00 21.73 kg/m2 [facility] Systolic blood pressure 2024-05-19 20:32:57 137 mm[Hg] [facility] Diastolic blood pressure 2024-05-19 20:32:57 88 mm[Hg] [facility] Heart rate 2024-05-19 20:32:57 118 /min [facility] Respiratory rate 2024-05-19 20:32:57 18 /min [facility] Oxygen saturation in Arterial blood by Pulse oximetry 2024-05-19 20:32:57 100 /min [facility] Body temperature 2024-05-19 18:41:00 36.39 Irene [facility] Body height 2024-05-19 18:41:[address] [facility] Body weight 2024-05-19 18:41:[address] [facility] BMI 2024-05-19 18:41:00 21.73 kg/m2 [facility] Systolic blood pressure 2024-04-19 15:51:38 123 mm[Hg] [facility] Diastolic blood pressure 2024-04-19 15:51:38 90 mm[Hg] [facility] Heart rate 2024-04-19 15:51:38 87 /min [facility] Body temperature 2024-04-19 15:51:38 36.78 Irene [facility] Respiratory rate 2024-04-19 15:51:38 14 /min [facility] Oxygen saturation in Arterial blood by Pulse oximetry 2024-04-19 15:51:38 100 /min [facility] Body height 2024-04-19 13:54:[address] [facility] Body weight 2024-04-19 13:54:[address] [facility] BMI 2024-04-19 13:54:00 22.67 kg/m2 [facility] Systolic blood pressure 2024-04-12 20:00:00 119 mm[Hg] [facility] Diastolic blood pressure 2024-04-12 20:00:00 80 mm[Hg] [facility] Heart rate 2024-04-12 20:00:00 88 /min [facility] Respiratory rate 2024-04-12 20:00:00 18 /min [facility] Oxygen saturation in Arterial blood by Pulse oximetry 2024-04-12 20:00:00 99 /min [facility] Body temperature 2024-04-12 19:00:00 36.67 Irene [facility] Body height 2024-04-12 17:57:[address] [facility] Body weight 2024-04-12 17:57:[address] [facility] BMI 2024-04-12 17:57:10 22.67 kg/m2 [facility] Systolic blood pressure 2024-04-12 16:25:00 124 mm[Hg] [facility] Diastolic blood pressure 2024-04-12 16:25:00 95 mm[Hg] [facility] Heart rate 2024-04-12 16:25:00 106 /min [facility] Body temperature 2024-04-12 16:25:00 37.17 Irene [facility] Respiratory rate 2024-04-12 16:25:00 18 /min [facility] Oxygen saturation in Arterial blood by Pulse oximetry 2024-04-12 16:25:00 100 /min [facility] Body height 2024-04-12 15:25:[address] [facility] Body weight 2024-04-12 15:25:[address] [facility] BMI 2024-04-12 15:25:00 22.67 kg/m2 [facility] Systolic blood pressure 2024-03-13 13:25:00 129 mm[Hg] [facility] Diastolic blood pressure 2024-03-13 13:25:00 87 mm[Hg] [facility] Heart rate 2024-03-13 13:25:00 116 /min [facility] Body temperature 2024-03-13 13:25:00 35.61 Irene [facility] Respiratory rate 2024-03-13 13:25:00 20 /min [facility] Oxygen saturation in Arterial blood by Pulse oximetry 2024-03-13 13:25:00 94 /min [facility] Body height 2024-03-10 14:43:[address] [facility] Body weight 2024-03-10 14:43:[address] [facility] BMI 2024-03-10 14:43:00 18.52 kg/m2 [facility] Systolic blood pressure 2024-03-05 16:10:00 142 mm[Hg] [facility] Diastolic blood pressure 2024-03-05 16:10:00 87 mm[Hg] [facility] Heart rate 2024-03-05 16:10:00 94 /min [facility] Body temperature 2024-03-05 16:10:00 37 Irene [facility] Respiratory rate 2024-03-05 16:10:00 16 /min [facility] Oxygen saturation in Arterial blood by Pulse oximetry 2024-03-05 16:10:00 100 /min [facility] Body height 2024-03-04 11:42:[address] [facility] Body weight 2024-03-04 11:42:[address] [facility] BMI 2024-03-04 11:42:00 18.89 kg/m2 [facility] Systolic blood pressure 2024-02-27 17:17:00 138 mm[Hg] [facility] Diastolic blood pressure 2024-02-27 17:17:00 91 mm[Hg] [facility] Heart rate 2024-02-27 17:17:00 97 [facility] Body temperature 2024-02-27 17:17:00 36.67 Irene [facility] Respiratory rate 2024-02-27 17:17:00 16 /min [facility] Oxygen saturation in Arterial blood by Pulse oximetry 2024-02-27 17:17:00 99 /min [facility] Body height 2024-02-27 13:16:[address] [facility] Body weight 2024-02-27 13:16:[address] [facility] BMI 2024-02-27 13:16:00 18.89 kg/m2 [facility] Systolic blood pressure 2024-02-27 15:50:00 122 mm[Hg] [facility] Diastolic blood pressure 2024-02-27 15:50:00 81 mm[Hg] [facility] Heart rate 2024-02-27 15:50:00 102 /min [facility] Respiratory rate 2024-02-27 15:50:00 13 /min [facility] Oxygen saturation in Arterial blood by Pulse oximetry 2024-02-27 15:50:00 98 /min [facility] Body temperature 2024-02-27 15:20:00 36 Irene [facility] Body height 2024-02-27 13:16:[address] [facility] Body weight 2024-02-27 13:16:[address] [facility] BMI 2024-02-27 13:16:00 18.89 kg/m2 [facility] Systolic blood pressure 2023-05-19 17:24:00 129 mm[Hg] [facility] Diastolic blood pressure 2023-05-19 17:24:00 83 mm[Hg] [facility] Heart rate 2023-05-19 17:24:00 77 /min [facility] Respiratory rate 2023-05-19 17:24:00 15 /min [facility] Oxygen saturation in Arterial blood by Pulse oximetry 2023-05-19 17:24:00 100 /min [facility] Body temperature 2023-05-19 14:50:00 37.28 Irene [facility] Body height 2023-05-19 14:50:[address] [facility] Body weight 2023-05-19 14:50:[address] [facility] BMI 2023-05-19 14:50:00 24.56 kg/m2 [facility] Systolic blood pressure 2023-01-15 16:56:00 132 mm[Hg] [facility] Diastolic blood pressure 2023-01-15 16:56:00 91 mm[Hg] [facility] Heart rate 2023-01-15 16:56:00 67 /min [facility] Body temperature 2023-01-15 16:56:00 36.78 Irene [facility] Respiratory rate 2023-01-15 16:56:00 20 /min [facility] Oxygen saturation in Arterial blood by Pulse oximetry 2023-01-15 16:56:00 100 /min [facility] Body height 2023-01-12 09:05:[address] [facility] Body weight 2023-01-12 09:05:[address] [facility] BMI 2023-01-12 09:05:00 24.56 kg/m2 [facility] Systolic blood pressure 2022-11-21 21:40:00 122 mm[Hg] [facility] Diastolic blood pressure 2022-11-21 21:40:00 90 mm[Hg] [facility] Heart rate 2022-11-21 21:40:00 92 /min [facility] Respiratory rate 2022-11-21 21:40:00 16 /min [facility] Oxygen saturation in Arterial blood by Pulse oximetry 2022-11-21 21:40:00 99 /min [facility] Body temperature 2022-11-21 18:07:00 37.28 Irene [facility] Body weight 2022-11-21 18:07:[address] [facility] BMI 2022-11-21 18:07:00 28.34 kg/m2 [facility] Systolic blood pressure 2022-09-05 17:22:00 139 mm[Hg] [facility] Diastolic blood pressure 2022-09-05 17:22:00 91 mm[Hg] [facility] Heart rate 2022-09-05 17:22:00 120 /min [facility] Respiratory rate 2022-09-05 17:22:00 18 /min [facility] Oxygen saturation in Arterial blood by Pulse oximetry 2022-09-05 17:22:00 99 /min [facility] Body temperature 2022-09-05 13:43:00 37.11 Irene [facility] Body weight 2022-09-05 13:43:[address] [facility] BMI 2022-09-05 13:43:00 28.34 kg/m2 [facility] Systolic blood pressure 2022-08-01 00:49:00 138 mm[Hg] [facility] Diastolic blood pressure 2022-08-01 00:49:00 104 mm[Hg] [facility] Heart rate 2022-08-01 00:49:00 108 /min [facility] Respiratory rate 2022-08-01 00:49:00 18 /min [facility] Oxygen saturation in Arterial blood by Pulse oximetry 2022-08-01 00:49:00 99 /min [facility] Body temperature 2022-07-31 22:52:00 37.11 [facility] Body height 2022-07-31 22:52:[address] [facility] Body weight 2022-07-31 22:52:[address] [facility] BMI 2022-07-31 22:52:00 28.34 kg/m2 [facility] Systolic blood pressure 2022-07-15 15:32:00 130 mm[Hg] [facility] Diastolic blood pressure 2022-07-15 15:32:00 90 mm[Hg] [facility] Heart rate 2022-07-15 15:31:00 81 /min [facility] Body temperature 2022-07-15 15:31:00 36.94 Irene [facility] Respiratory rate 2022-07-15 15:31:00 16 /min [facility] Body weight 2022-07-15 15:31:[address] [facility] BMI 2022-07-15 15:31:00 28.53 kg/m2 [facility] Oxygen saturation in Arterial blood by Pulse oximetry 2022-07-15 15:31:00 99 /min [facility] Systolic blood pressure 2022-06-23 15:26:00 111 mm[Hg] [facility] Diastolic blood pressure 2022-06-23 15:26:00 75 mm[Hg] [facility] Heart rate 2022-06-23 15:26:00 108 /min [facility] Body temperature 2022-06-23 15:26:00 36.83 Riene [facility] Respiratory rate 2022-06-23 15:26:00 18 /min [facility] Body height 2022-06-23 15:26:[address] [facility] Body weight 2022-06-23 15:26:[address] [facility] BMI 2022-06-23 15:26:00 29.74 kg/m2 [facility] Oxygen saturation in Arterial blood by Pulse oximetry 2022-06-23 15:26:00 99 /min [facility] Systolic blood pressure 2022-05-05 22:05:00 126 mm[Hg] [facility] Diastolic blood pressure 2022-05-05 22:05:00 75 mm[Hg] [facility] Heart rate 2022-05-05 22:05:00 99 /min [facility] Respiratory rate 2022-05-05 22:05:00 16 /min [facility] Oxygen saturation in Arterial blood by Pulse oximetry 2022-05-05 22:05:00 99 /min [facility] Body temperature 2022-05-05 18:24:00 37.11 Irene [facility] Body height 2022-05-05 18:24:[address] [facility] Body weight 2022-05-05 18:24:[address] [facility] BMI 2022-05-05 18:24:00 22.67 kg/m2 [facility] Systolic blood pressure 2022-04-26 14:28:00 135 mm[Hg] [facility] Diastolic blood pressure 2022-04-26 14:28:00 95 mm[Hg] [facility] Heart rate 2022-04-26 14:28:00 93 /min [facility] Body temperature 2022-04-26 14:28:00 36.89 Irene [facility] Respiratory rate 2022-04-26 14:28:00 18 /min [facility] Body height 2022-04-26 14:28:[address] [facility] Body weight 2022-04-26 14:28:[address] [facility] BMI 2022-04-26 14:28:00 22.67 kg/m2 [facility] Oxygen saturation in Arterial blood by Pulse oximetry 2022-04-26 14:28:00 100 /min [facility] Systolic blood pressure 2022-04-26 00:21:00 151 mm[Hg] [facility] Diastolic blood pressure 2022-04-26 00:21:00 98 mm[Hg] [facility] Heart rate 2022-04-26 00:21:00 98 /min [facility] Body temperature 2022-04-26 00:21:00 36.72 Irene [facility] Respiratory rate 2022-04-26 00:21:00 18 /min [facility] Body height 2022-04-26 00:21:[address] [facility] Body weight 2022-04-26 00:21:[address] [facility] BMI 2022-04-26 00:21:00 22.67 kg/m2 [facility] Oxygen saturation in Arterial blood by Pulse oximetry 2022-04-26 00:21:00 100 /min [facility] Systolic blood pressure 2022-04-09 14:39:00 122 mm[Hg] [facility] Diastolic blood pressure 2022-04-09 14:39:00 84 mm[Hg] [facility] Heart rate 2022-04-09 14:39:00 96 /min [facility] Body height 2022-04-09 14:39:[address] [facility] Body weight 2022-04-09 14:39:[address] [facility] BMI 2022-04-09 14:39:00 25.13 kg/m2 [facility] Oxygen saturation in Arterial blood by Pulse oximetry 2022-04-09 14:39:00 98 /min [facility] Systolic blood pressure 2022-04-07 22:43:36 131 mm[Hg] [facility] Diastolic blood pressure 2022-04-07 22:43:36 83 mm[Hg] [facility] Heart rate 2022-04-07 22:43:36 113 /min [facility] Respiratory rate 2022-04-07 22:43:36 18 /min [facility] Oxygen saturation in Arterial blood by Pulse oximetry 2022-04-07 22:43:36 97 /min [facility] Body temperature 2022-04-07 19:41:00 37.17 Irene [facility] Body height 2022-04-07 19:41:[address] [facility] Body weight 2022-04-07 19:41:[address] [facility] BMI 2022-04-07 19:41:00 25.13 kg/m2 [facility] Systolic blood pressure 2022-03-24 19:00:00 125 mm[Hg] [facility] Diastolic blood pressure 2022-03-24 19:00:00 86 mm[Hg] [facility] Heart rate 2022-03-24 19:00:00 93 /min [facility] Respiratory rate 2022-03-24 19:00:00 17 /min [facility] Oxygen saturation in Arterial blood by Pulse oximetry 2022-03-24 19:00:00 97 /min [facility] Body temperature 2022-03-24 13:33:00 36.78 Irene [facility] Systolic blood pressure 2022-03-15 19:23:00 128 mm[Hg] [facility] Diastolic blood pressure 2022-03-15 19:23:00 89 mm[Hg] [facility] Heart rate 2022-03-15 19:23:00 104 /min [facility] Body weight 2022-03-15 19:23:[address] [facility] BMI 2022-03-15 19:23:00 25.13 kg/m2 [facility] Oxygen saturation in Arterial blood by Pulse oximetry 2022-03-15 19:23:00 98 /min [facility] Systolic blood pressure 2022-03-15 15:02:00 115 mm[Hg] [facility] Diastolic blood pressure 2022-03-15 15:02:00 70 mm[Hg] [facility] Heart rate 2022-03-15 15:02:00 85 /min [facility] Respiratory rate 2022-03-15 15:02:00 20 /min [facility] Oxygen saturation in Arterial blood by Pulse oximetry 2022-03-15 15:02:00 99 /min [facility] Body temperature 2022-03-15 13:38:00 36.94 Irene [facility] Body height 2022-03-15 13:38:[address] [facility] Body weight 2022-03-15 13:38:[address] [facility] BMI 2022-03-15 13:38:00 22.67 kg/m2 [facility] Systolic blood pressure 2022-03-11 16:30:00 124 mm[Hg] [facility] Diastolic blood pressure 2022-03-11 16:30:00 88 mm[Hg] [facility] Heart rate 2022-03-11 16:30:00 93 /min [facility] Body temperature 2022-03-11 16:30:00 36.67 Irene [facility] Respiratory rate 2022-03-11 16:30:00 14 /min [facility] Oxygen saturation in Arterial blood by Pulse oximetry 2022-03-11 16:30:00 100 /min [facility] Body height 2022-03-11 14:19:[address] [facility] Body weight 2022-03-11 14:19:[address] [facility] BMI 2022-03-11 14:19:00 24.56 kg/m2 [facility] Systolic blood pressure 2022-02-27 14:14:00 140 mm[Hg] [facility] Diastolic blood pressure 2022-02-27 14:14:00 90 mm[Hg] [facility] Heart rate 2022-02-27 14:14:00 103 /min [facility] Body height 2022-02-27 14:14:00 [facility] 2022-02-27 14:14:[address] [facility] BMI 2022-02-27 14:14:00 24.66 kg/m2 [facility] Oxygen saturation in Arterial blood by Pulse oximetry 2022-02-27 14:14:00 100 /min [facility] Systolic blood pressure 2022-02-27 13:19:00 131 mm[Hg] [facility] Diastolic blood pressure 2022-02-27 13:19:00 86 mm[Hg] [facility] Heart rate 2022-02-27 13:19:00 102 /min [facility] Body temperature 2022-02-27 13:19:00 36.33 Irene [facility] Body height 2022-02-27 13:19:[address] [facility] Body weight 2022-02-27 13:19:[address] [facility] BMI 2022-02-27 13:19:00 24.56 kg/m2 [facility] Oxygen saturation in Arterial blood by Pulse oximetry 2022-02-27 13:19:00 99 /min [facility] Systolic blood pressure 2022-02-21 08:06:00 135 mm[Hg] [facility] Diastolic blood pressure 2022-02-21 08:06:00 97 mm[Hg] [facility] Heart rate 2022-02-21 08:06:00 98 /min [facility] Respiratory rate 2022-02-21 08:06:00 16 /min [facility] Oxygen saturation in Arterial blood by Pulse oximetry 2022-02-21 08:06:00 97 /min [facility] Body temperature 2022-02-21 06:16:00 36.94 Irene [facility] Body height 2022-02-21 06:16:[address] [facility] Body weight 2022-02-21 06:16:[address] [facility] BMI 2022-02-21 06:16:00 25.39 kg/m2 [facility] Systolic blood pressure 2022 20:08:00 136 mm[Hg] [facility] Diastolic blood pressure 2022 20:08:00 96 mm[Hg] [facility] Heart rate 2022 20:08:00 100 /min [facility] Respiratory rate 2022 20:08:00 20 /min [facility] Oxygen saturation in Arterial blood by Pulse oximetry 2022 20:08:00 98 /min [facility] Body temperature 2022 16:56:00 37.06 Irene [facility] Body weight 2022 16:56:[address] [facility] BMI 2022 16:56:00 22.67 kg/m2 [facility] Systolic blood pressure 2022-02-05 14:31:00 128 mm[Hg] [facility] Diastolic blood pressure 2022-02-05 14:31:00 84 mm[Hg] [facility] Heart rate 2022-02-05 14:31:00 86 /min [facility] Body temperature 2022-02-05 14:31:00 37.89 Irene [facility] Respiratory rate 2022-02-05 14:31:00 18 /min [facility] Body height 2022-02-05 14:31:[address] [facility] Body weight 2022-02-05 14:31:[address] [facility] BMI 2022-02-05 14:31:00 22.67 kg/m2 [facility] Oxygen saturation in Arterial blood by Pulse oximetry 2022-02-05 14:31:00 98 /min [facility] Systolic blood pressure 2022-01-18 14:50:00 144 mm[Hg] [facility] Diastolic blood pressure 2022-01-18 14:50:00 92 mm[Hg] [facility] Heart rate 2022-01-18 14:50:00 94 /min [facility] Respiratory rate 2022-01-18 14:50:00 20 /min [facility] Oxygen saturation in Arterial blood by Pulse oximetry 2022-01-18 14:50:00 99 /min [facility] Body weight 2022-01-18 10:18:[address] [facility] BMI 2022-01-18 10:18:00 22.67 kg/m2 [facility] Body temperature 2022-01-18 10:15:00 36.72 Irene [facility] Systolic blood pressure 2022-01-15 15:48:26 125 mm[Hg] [facility] Diastolic blood pressure 2022-01-15 15:48:26 85 mm[Hg] [facility] Heart rate 2022-01-15 15:48:26 95 /min [facility] Respiratory rate 2022-01-15 15:48:26 18 /min [facility] Oxygen saturation in Arterial blood by Pulse oximetry 2022-01-15 15:48:26 98 /min [facility] Body temperature 2022-01-15 13:32:00 37.11 Irene [facility] Body height 2022-01-15 13:32:[address] [facility] Body weight 2022-01-15 13:32:[address] [facility] BMI 2022-01-15 13:32:00 22.67 kg/m2 [facility] Systolic blood pressure 2022-01-09 00:37:11 127 mm[Hg] [facility] Diastolic blood pressure 2022-01-09 00:37:11 90 mm[Hg] [facility] Heart rate 2022-01-09 00:37:11 94 /min [facility] Body temperature 2022-01-09 00:37:11 37.11 Irene [facility] Respiratory rate 2022-01-09 00:37:11 16 /min [facility] Oxygen saturation in Arterial blood by Pulse oximetry 2022-01-09 00:37:11 97 /min [facility] Body height 2022-01-08 23:03:[address] [facility] Body weight 2022-01-08 23:03:[address] [facility] BMI 2022-01-08 23:03:00 24.19 kg/m2 [facility] Systolic blood pressure 2021-12-12 18:00:00 126 mm[Hg] [facility] Diastolic blood pressure 2021-12-12 18:00:00 87 mm[Hg] [facility] Heart rate 2021-12-12 18:00:00 86 /min [facility] Body temperature 2021-12-12 18:00:00 36.89 Irene [facility] Respiratory rate 2021-12-12 18:00:00 18 /min [facility] Body height 2021-12-12 18:00:[address] [facility] Body weight 2021-12-12 18:00:[address] [facility] BMI 2021-12-12 18:00:00 23.81 kg/m2 [facility] Systolic blood pressure 2023-01-14 16:32:00 138 mm[Hg] [facility] Diastolic blood pressure 2023-01-14 16:32:00 84 mm[Hg] [facility] Heart rate 2023-01-14 16:32:00 67 /min Unive [facility] Body temperature 2023-01-14 16:32:00 36.5 Irene [facility] Respiratory rate 2023-01-14 16:32:00 16 /min [facility] Oxygen saturation in Arterial blood by Pulse oximetry 2023-01-14 16:32:00 99 /min [facility] Body height 2023-01-12 09:05:[address] [facility] Body weight 2023-01-12 09:05:[address] [facility] BMI 2023-01-12 09:05:00 24.56 kg/m2 [facility] Procedures Procedure Date / Time Performed Performing Clinician Source POCT TEST 2024-05-19 20:10:00 Anamaria Gonzales [facility] LIPASE 2024-05-19 19:53:00 [facility] METABOLIC PANEL (63280) 2024-05-19 19:53:00 [facility] WITH DIFF 2024-05-19 19:53:00 Anamaria Gonzales [facility] URINALYSIS 2024-05-19 19:53:00 [facility] PELVIS WO CONTRAST 2024-04-19 14:51:33 Rosendo Levy [facility] POCT TEST 2024-04-19 14:21:00 Rosendo Levy [facility] LIPASE 2024-04-19 14:18:00 Rosendo Levy [facility] COMP. METABOLIC PANEL ([id number]) 2024-04-19 14:18:00 Rosendo Levy [facility] CBC WITH DIFF 2024-04-19 14:18:00 Rosendo Levy [facility] URINALYSIS 2024-04-19 14:18:00 Rosendo Levy [facility] XR ANKLE <3 VW LEFT 2024-04-12 18:36:00 Niranjan Neeta [facility] XR FOOT <3 VW LEFT 2024-04-12 18:36:00 Niranjan [facility] XR TIBIA FIBULA 2 VW LEFT 2024-04-12 18:36:00 Niranjan Neeta [facility] CT TRAUMA HEAD WO CONTRAST 2024-04-12 18:27:49 Niranjan [facility] CT TRAUMA CERVICAL SPINE WO CONTRAST 2024-04-12 18:27:49 Niranjan [facility] CT TRAUMA THORACIC SPINE WO CONTRAST 2024-04-12 18:27:49 [address] [facility] CT TRAUMA LUMBAR SPINE WO CONTRAST 04-12 18:27:49 Neeta Ureña [facility] XR CHEST 1 VW 2024-04-12 15:50:27 Maggie Hamilton [facility] COMP. METABOLIC PANEL ([id number]) 2024-04-12 15:43:00 Maggie Hamilton [facility] CBC WITH DIFF 2024-04-12 15:43:00 Maggie Hamilton [facility] HB ABO GROUPING 2024-04-12 15:43:00 Maggie Hamilton [facility] ER FAST ULTRASOUND 2024-04-12 15:36:51 Maggie Hamilton [facility] MAGNESIUM 2024-03-13 10:20:00 Ellis Burgess [facility] BASIC METABOLIC PANEL (NA, K , CL, CO2, GLUCOSE, BUN, CREATININE, CA) 2024-03-13 10:20:00 Ellis Burgess [facility] CBC WITH DIFF 2024-03-13 10:20:00 Ellis Burgess Rodger [facility] FECAL PATHOGENS BY PCR 2024-03-12 17:51:[address] [facility] CLOSTRIDIUM DIFFICILE TOXIN 2024-03-12 17:50:[address] [facility] LAB ONLY C. DIFFICILE TOXIN B GENE (TCDB) BY PCR 2024-03-12 17:50:[address] [facility] SUPERIOR MESENTERIC ARTERY D UPLEX - BY VASCULAR LAB 2024-03-12 14:06:02 [facility] 2024-03-12 11:14:[address] [facility] BASIC METABOLIC PANEL (NA, K , CL, CO2, GLUCOSE, BUN, CREATININE, CA) 2024-03-12 11:14:[address] [facility] CBC WITHOUT DIFF 2024-03-12 11:14:[address] [facility] MAGNESIUM 2024-03-11 10:47:00 Meryl Tang [facility] BASIC METABOLIC PANEL (NA, K , CL, CO2, GLUCOSE, BUN, CREATININE, CA) 2024-03-11 10:47:00 Kitty [facility] CBC WITH DIFF 2024-03-11 10:47:00 Kitty [facility] CT ABDOMEN PELVIS WO CONTRAST 2024-03-10 19:46:10 [facility] LIPASE 2024-03-10 15:42:00 [facility] TEST, SERUM 2024-03-10 15:42:00 Alfredo Parra [facility] COMP. METABOLIC PANEL ([id number]) 2024-03-10 15:42:00 [facility] URINE DRUG (IMMUNOASSAY) - COMPREHENSIVE DRUG SCREEN 2024-03-10 15:42:00 Kitty [facility] CBC WITH DIFF 2024-03-10 15:42:00 [facility] URINALYSIS 2024-03-10 15:42:00 [facility] EXTRA TUBE DK. GREEN 2024-03-10 15:42:00 Fidel [facility] CT ABDOMEN PELVIS WO CONTRAST 2024-03-04 13:43:16 Alexander Richard [facility] POCT TEST 2024-03-04 13:14:00 Alexander Richard [facility] LIPASE 2024-03-04 13:13:00 Alexander Richard [facility] COMP. METABOLIC PANEL ([id number]) 2024-03-04 13:13:00 Alexander Richard [facility] CBC WITH DIFF 2024-03-04 13:13:00 [facility]24-[facility]-04 13:13:00 Alexander Richard [facility] ENDOSCOPY PROCEDURE DOCUMENTATION 2023-05 0-18 14:46:53 Doctor [place]assigned, [place] [facility] FLEXIBLE SIGMOIDOSCOPY (ENDO) 2024-02-27 15:42:37 Hany Lee [facility] FLEXIBLE SIGMOIDOSCOPY (ENDO) 2024-02-27 15:42:37 Hany Lee [facility] EGD (ENDO) 2024-02-27 15:39:44 Hany Lee [facility] EGD (ENDO) 2024-02-27 15:39:44 Hany Lee [facility] ESOPHAGOGASTRODUODENOSCOPY 2024-02-27 14:11:00 Chitra [facility] FLEXIBLE SIGMOIDOSCOPY 2024-02-27 14:11:00 Jas Buenrostro [facility] MAGNESIUM 2024-02-27 09:37:00 Jose Carlos Urbina [facility] HEPATIC FUNCTION PANEL (8007 6) (ALB,T.PRO,BILI T,BU/BC,ALT,AST,ALK PHOS) 2024-02-27 09:37:00 Jose Carlos Urbina [facility] BASIC METABOLIC PANEL (NA, K , CL, CO2, GLUCOSE, BUN, CREATININE, CA) 2024-02-27 09:37:00 Jose Carlos Urbina [facility] CBC WITH DIFF 2024-02-27 09:37:00 Jose Carlos Urbina [facility] MAGNESIUM 2024-02-27 09:37:00 Jose Carlos Urbina [facility] HEPATIC FUNCTION PANEL (8007 6) (ALB,T.PRO,BILI T,BU/BC,ALT,AST,ALK PHOS) 2024-02-27 09:37:00 Jose Carlos Urbina [facility] BASIC METABOLIC PANEL (NA, K , CL, CO2, GLUCOSE, BUN, CREATININE, CA) 2024-02-27 09:37:00 Jose Carlos Urbina [facility] CBC WITH DIFF 2024-02-27 09:37:00 Jose Carlos Urbina [facility] CALPROTECTIN, FECAL 2024-02-26 22:49:00 Jose Carlos Urbina [facility] CALPROTECTIN, FECAL 2024-02-26 22:49:00 Jose Carlos Urbian [facility] XR KUB 2024-02-26 20:00:00 Jose Carlos Urbina [facility] XR KUB 2024-02-26 20:00:00 Jose Carlos Urbina [facility] MAGNESIUM 2024-02-26 16:17:00 Chitra [facility] HEPATIC FUNCTION PANEL (8007 6) (ALB,T.PRO,BILI T,BU/BC,ALT,AST,ALK PHOS) 2024-02-26 16:17:00 Chitra [facility] BASIC METABOLIC PANEL (NA, K , CL, CO2, GLUCOSE, BUN, CREATININE, CA) 2024-02-26 16:17:00 Chitra [facility] PROTHROMBIN TIME / INR 2024-02-26 16:17:00 Chitra [facility] MAGNESIUM 2024-02-26 16:17:00 Chitra [facility] HEPATIC FUNCTION PANEL (8007 6) (ALB,T.PRO,BILI T,BU/BC,ALT,AST,ALK PHOS) 2024-02-26 16:17:00 Chitra [facility] BASIC METABOLIC PANEL (NA, K , CL, CO2, GLUCOSE, BUN, CREATININE, CA) 2024-02-26 16:17:00 Chitra [facility] PROTHROMBIN TIME / INR 2024-02-26 16:17:00 Chitra [facility] MR ABDOMEN W WO CONTRAST MRCP 2024-02-25 17:15:21 Chitra [facility] MR ABDOMEN W WO CONTRAST MRCP 2024-02-25 17:15:21 Chitra [facility] CREATINE KINASE 2024-02-25 10:52:00 Chitra [facility] HEPATIC FUNCTION PANEL (8007 6) (ALB,T.PRO,BILI T,BU/BC,ALT,AST,ALK PHOS) 2024-02-25 10:52:00 Jose Carlos Urbina [facility] BASIC METABOLIC PANEL (NA, K , CL, CO2, GLUCOSE, BUN, CREATININE, CA) 2024-02-25 10:52:00 Jose Carlos Urbina [facility] CREATINE KINASE 2024-02-25 10:52:00 Chitra [facility] HEPATIC FUNCTION PANEL (8007 6) (ALB,T.PRO,BILI T,BU/BC,ALT,AST,ALK PHOS) 2024-02-25 10:52:00 Jose Carlos Urbina [facility] BASIC METABOLIC PANEL (NA, K , CL, CO2, GLUCOSE, BUN, CREATININE, CA) 2024-02-25 10:52:00 Jose Carlos Urbina [facility] MAGNESIUM 2024-02-24 09:54:00 Naty Buenrostro [facility] HEPATIC FUNCTION PANEL (8007 6) (ALB,T.PRO,BILI T,BU/BC,ALT,AST,ALK PHOS) 2024-02-24 09:54:00 Jose Carlos Urbina [facility] BASIC METABOLIC PANEL (NA, K , CL, CO2, GLUCOSE, BUN, CREATININE, CA) 2024-02-24 09:54:00 Jose Carlos Urbina [facility] CBC WITH DIFF 2024-02-24 09:54:00 Naty Buenrostro [facility] MAGNESIUM 2024-02-24 09:54:00 [facility] (8007 6) (ALB,T.PRO,BILI T,BU/BC,ALT,AST,ALK PHOS) 2024-02-24 09:54:00 Jose Carlos Urbina [facility] BASIC METABOLIC PANEL (NA, K , CL, CO2, GLUCOSE, BUN, CREATININE, CA) 2024-02-24 09:54:00 Jose Carlos Urbina [facility] CBC WITH DIFF 2024-02-24 09:54:00 Naty Buenrostro [facility] POCT GLUCOSE (AUTOMATED) 2024-02-24 01:34:00 Hany Lee [facility] POCT GLUCOSE (AUTOMATED) 2024-02-24 01:34:00 Hany Lee [facility] HEPATIC FUNCTION PANEL (8007 6) (ALB,T.PRO,BILI T,BU/BC,ALT,AST,ALK PHOS) 2024-02-23 17:51:00 Susannah Buenrostroesha [facility] CBC WITH DIFF 2024-02-23 17:51:00 [facility] HAV [facility]TIBODY (IGG AND IGM) 2024-02-23 17:51:00 Chitra [facility] ENDOMYSIAL AB, IGA BY IFA 2024-02-23 17:51:00 Chitra [facility] VITAMIN D, 25-[place] 2024-02-23 17:51:00 Chitra [facility] HEPATIC FUNCTION PANEL (8007 6) (ALB,T.PRO,BILI T,BU/BC,ALT,AST,ALK PHOS) 2024-02-23 17:51:00 Chitra [facility] CBC WITH DIFF 2024-02-23 17:51:00 Chitra [facility] HAV ANTIBODY (IGG AND IGM) 2024-02-23 17:51:00 Chitra [facility] ENDOMYSIAL AB, IGA BY IFA 2024-02-23 17:51:00 Chitra [facility] VITAMIN D, 25-[place] 2024-02-23 17:51:00 Chitra [facility] INFLUENZA A/B RSV COVID NAAT 2024-02-22 20:12:00 Chitra [facility] LAB ONLY COVID INTERPRETATION 2024-02-22 20:12:00 Chirta [facility] INFLUENZA A/B RSV COVID NAAT 2024-02-22 20:12:00 Chitra [facility] LAB ONLY COVID INTERPRETATION 2024-02-22 20:12:00 Chitra [facility] XR CHEST 2 VW 2024-02-22 17:16:00 Tarrant, Adriana [facility] XR CHEST 2 VW 2024-02-22 17:16:00 Tarrant, Adriana [facility] US ABDOMEN LIMITED 2024-02-22 16:59:52 Tarrant, Adriana [facility] US ABDOMEN LIMITED 2024-02-22 16:59:52 Tarrant, Adriana [facility] LIPASE 2024-02-22 15:19:00 Stephanie Lou, Colin [facility] TEST, SERUM 2024-02-22 15:19:00 Stephanie Lou [facility] C-REACTIVE PROTEIN 2024-02-22 15:19:00 [facility]OP[facility] 2024-02-22 15:19:00 Stephanie Lou [facility] HEPATIC FUNCTION PANEL (8007 6) (ALB,T.PRO,BILI T,BU/BC,ALT,AST,ALK PHOS) 2024-02-22 15:19:00 [facility] COMP. METABOLIC PANEL ([id number]) 2024-02-22 15:19:00 Stephanie Lou [facility] URINE DRUG (IMMUNOASSAY) - COMPREHENSIVE DRUG SCREEN 2024-02-22 15:19:00 Chitra [facility] SEDIMENTATION RATE 2024-02-22 15:19:00 Chitra [facility] CBC WITH DIFF 2024-02-22 15:19:00 Stephanie Lou [facility] URINALYSIS 2024-02-22 15:19:00 Stephanie Lou [facility] HEPATITIS B SURFACE ANTIBODY 2024-02-22 15:19:00 Chitra [facility] HEPATITIS B SURFACE ANTIGEN 2024-02-22 15:19:00 Chitra [facility] HCV ANTIBODY 2024-02-22 15:19:00 Chitra [facility] HBC ANTIBODY (IGM & IGG) 2024-02-22 15:19:00 Chitra [facility] HIV 1/2 AG-AB WITH REFLEX 2024-02-22 15:19:00 Chitra [facility] DEAMIDATED GLIADIN IGG 2024-02-22 15:19:00 Chitra [facility] LIPASE 2024-02-22 15:19:00 Stephanie Lou [facility] TEST, SERUM 2024-02-22 15:19:00 Stephanie Lou [facility] C-REACTIVE PROTEIN 2024-02-22 15:19:00 Buenrostro, [facility] TROPONIN I 2024-02-22 15:19:00 Stephanie Lou [facility] HEPATIC FUNCTION PANEL (8007 6) (ALB,T.PRO,BILI T,BU/BC,ALT,AST,ALK PHOS) 2024-02-22 15:19:00 Chitra [facility] COMP. METABOLIC PANEL ([id number]) 2024-02-22 15:19:00 Stephanie Lou [facility] URINE DRUG (IMMUNOASSAY) - COMPREHENSIVE DRUG SCREEN 2024-02-22 15:19:00 Chitra [facility] SEDIMENTATION RATE 2024-02-22 15:19:00 Chitra [facility] CBC WITH DIFF 2024-02-22 15:19:00 Stephanie Lou [facility] URINALYSIS 2024-02-22 15:19:00 Stephanie Lou [facility] HEPATITIS B SURFACE ANTIBODY 2024-02-22 15:19:00 Chitra [facility] HEPATITIS B SURFACE ANTIGEN 2024-02-22 15:19:00 Chitra [facility] HCV ANTIBODY 2024-02-22 15:19:00 Chitra [facility] HBC ANTIBODY (IGM & IGG) 2024-02-22 15:19:00 Chitra [facility] HIV 1/2 AG-AB WITH REFLEX 2024-02-22 15:19:00 Chitra [facility] DEAMIDATED GLIADIN IGG 2024-02-22 15:19:00 Chitra [facility] COMP. METABOLIC PANEL ([id number]) 2023-05-19 17:22:00 Verito [facility] CT ABDOMEN PELVIS W CONTRAST 2023-05-19 15:59:54 Verito [facility] LIPASE 2023-05-19 15:43:00 Verito [facility] CBC WITH DIFF 2023-05-19 15:43:00 Tod Aguilar [facility] URINALYSIS 2023-05-19 15:32:00 Tod Aguilar [facility] POCT TEST 2023-05-19 15:31:00 Tod Aguilar [facility] CONSENT/REFUSAL FOR DIAGNOSI S AND TREATMENT 2023-05-19 14:37:15 Doctor Unassigned, [place] [facility] PHOSPHORUS 2023-01-15 08:15:00 Benita [facility] MAGNESIUM 2023-01-15 08:15:00 [facility] [place] [facility]OL[facility] (NA, K , CL, CO2, GLUCOSE, BUN, CREATININE, CA) 2023-01-15 08:15:00 [facility] [place] [facility] WITH DIFF 2023-01-15 08:15:00 Moiz [facility] PROTHROMBIN TIME / INR 2023-01-15 08:15:00 [facility] [place] [facility] 2023-01-14 10:14:00 [facility] [place] [facility] 2023-01-14 10:14:00 [facility] [place] BASIC METABOLIC PANEL (NA, K , CL, CO2, GLUCOSE, BUN, CREATININE, CA) 2023-01-14 10:14:00 Moiz Benita [facility] CBC WITH DIFF 2023-01-14 10:14:00 [facility] [place] [facility] 2023-01-14 10:14:00 [facility] [place] [facility] 2023-01-14 10:14:00 [facility] [place] BASIC METABOLIC PANEL (NA, K , CL, CO2, GLUCOSE, BUN, CREATININE, CA) 2023-01-14 10:14:00 Moiz Benita [facility] CBC WITH DIFF 2023-01-14 10:14:00 [facility] [place] [facility] WITH DIFF 2023-01-13 10:45:00 Vaishnavi, [facility] BASIC METABOLIC PANEL (NA, K , CL, CO2, GLUCOSE, BUN, CREATININE, CA) 2023-01-13 10:45:00 Vaishnavi, [facility] MAGNESIUM 2023-01-13 10:45:00 Vaishnavi, [facility] PHOSPHORUS 2023-01-13 10:45:00 Vaishnavi, [facility] HEPATIC FUNCTION PANEL (8007 6) (ALB,T.PRO,BILI T,BU/BC,ALT,AST,ALK PHOS) 2023-01-13 10:45:00 Vaishnavi, [facility] PHOSPHORUS 2023-01-13 10:45:00 Vaishnavi, [facility] MAGNESIUM 2023-01-13 10:45:00 Vaishnavi, [facility] HEPATIC FUNCTION PANEL (8007 6) (ALB,T.PRO,BILI T,BU/BC,ALT,AST,ALK PHOS) 2023-01-13 10:45:00 Vaishnavi, [facility] BASIC METABOLIC PANEL (NA, K , CL, CO2, GLUCOSE, BUN, CREATININE, CA) 2023-01-13 10:45:00 Vaishnavi, [facility] CBC WITH DIFF 2023-01-13 10:45:00 Vaishnavi, [facility] GLUCOSE BODY FLUID 2023-01-12 20:44:00 Vaishnavi, [facility] BODY FLUID MANUAL DIFF 2023-01-12 20:44:00 Vaishnavi, [facility] T.PROTEIN BODY FLUID 2023-01-12 20:44:00 Vaishnavi [facility] ASPIRATE OR ABSCESS CULTURE(AEROBIC/ANAEROBIC) 2023-01-12 20:44:00 Vaishnavi, [facility] LDH TOTAL BODY FLUID 2023-01-12 20:44:00 Vaishnavi, [facility] GLUCOSE BODY FLUID 2023-01-12 20:44:00 Vaishnavi, [facility] T.PROTEIN BODY FLUID 2023-01-12 20:44:00 Vaishnavi, [facility] BODY FLUID DIRECT COUNT 2023-01-12 20:44:00 Vaishnavi, [facility] ASPIRATE OR ABSCESS CULTURE(AEROBIC/ANAEROBIC) 2023-01-12 20:44:00 Vaishnavi, [facility] LDH TOTAL BODY FLUID 2023-01-12 20:44:00 Vaishnavi, [facility] PROTHROMBIN TIME / INR 2023-01-12 08:13:00 Vaishnavi, [facility] PROTHROMBIN TIME / INR 2023-01-12 08:13:00 Vaishnavi, [facility] COMP. METABOLIC PANEL ([id number]) 2023-01-12 03:49:00 Ricky Zehra [facility] COMP. METABOLIC PANEL ([id number]) 2023-01-12 03:49:00 Zehra García [facility] CT ABDOMEN PELVIS W CONTRAST 2023-01-12 03:32:06 Ricky Formerly [facility] CT ABDOMEN PELVIS W CONTRAST 2023-01-12 03:32:06 Zehra García [facility] POCT TEST 2023-01-12 03:02:00 Ricky [facility] POCT TEST 2023-01-12 03:02:00 Zehra García [facility] URINALYSIS 2023-01-12 02:56:00 Zehra García [facility] LIPASE 2023-01-12 02:56:00 Zehra García [facility] TOTAL BETA HCG ASSAY 2023-01-12 02:56:00 Zehra García [facility] CBC WITH DIFF 2023-01-12 02:56:00 Ricky [facility] EXTRA TUBE ORANGE 2023-01-12 02:56:00 [facility] 2023-01-12 02:56[facility]00 [facility]12 02:56:00 Ricky [facility] TOTAL BETA HCG ASSAY 2023-01-12 02:56:00 [facility]FF 2023-01-12 02:56:00 Zehra García [facility] URINALYSIS 2023-01-12 02:56:00 Zehra García [facility] EXTRA TUBE LAV 2023-01-12 02:56:00 Miguel Ángel Siddiqui [facility] EXTRA TUBE ORANGE 2023-01-12 02:56:00 Miguel Ángel Siddiqui [facility] CONSENT/REFUSAL FOR DIAGNOSI S AND TREATMENT 2023-01-12 01:46:10 Doctor Unassigned, [place] [facility] CONSENT/REFUSAL FOR DIAGNOSI S AND TREATMENT 2023-01-12 01:46:10 Doctor Unassigned, [place] [facility] ASSIGNMENT OF BENEFITS 2022-11-21 19:49:02 Doctor Unassigned, [place] [facility] ASSIGNMENT OF BENEFITS 2022-11-21 19:49:02 Doctor Unassigned, [place] [facility] CONSENT/REFUSAL FOR DIAGNOSI S AND TREATMENT 2022-11-21 18:03:25 Doctor Unassigned, [place] [facility] CONSENT/REFUSAL FOR DIAGNOSI S AND TREATMENT 2022-11-21 18:03:25 Doctor Unassigned, [place] [facility] EMERGENCY SERVICES AGREEMENT S AND AUTHORIZATIONS 2022-11-21 05:01:00 Doctor Unassigned, [place] [facility] CONSENT/REFUSAL FOR DIAGNOSI S AND TREATMENT 2022-09-05 13:42:02 Doctor Unassigned, [place] [facility] LIPASE 2022-07-31 23:13:00 Blane [facility] TEST, SERUM 2022-07-31 23:13:00 Blane [facility] COMP. METABOLIC PANEL ([id number]) 2022-07-31 23:13:00 Blane [facility] CBC WITH DIFF 2022-07-31 23:13:00 Blane [facility] CONSENT/REFUSAL FOR DIAGNOSI S AND TREATMENT 2022-07-31 22:49:17 Doctor Unassigned, [place] [facility] XR ANKLE 3+ VW RIGHT 2022-07-15 16:00:00 Beba Kaur [facility] XR FOOT 3+ VW RIGHT 2022-07-15 16:00:00 Natasha Beba Farmer [facility] XR FOOT 3+ VW RIGHT 2022-07-15 16:00:00 Natasha, Beba Farmer [facility] PATIENT FINANCIAL POLICY 2022-07-15 15:25:53 Doctor Unassigned, [place] [facility] POCT MOLECULAR STREP 2022-06-23 16:06:00 Unknown, Attending [facility] ASSIGNMENT OF BENEFITS 2022-06-23 15:18:28 Doctor Unassigned, [place] [facility] COMP. METABOLIC PANEL ([id number]) 2022-05-05 19:14:00 [facility] 2022-05-05 19:14:00 Erorl [facility] POCT TEST 2022-05-05 19:00:00 [facility] 2022-05-05 18:58:00 [facility] PELVIS WO CONTRAST 2022-04-26 15:11:00 Singer [facility] COMP. METABOLIC PANEL ([id number]) 2022-04-26 14:49:00 Singer [facility] CBC WITH DIFF 2022-04-26 14:49:00 Singer [facility] URINALYSIS 2022-04-26 14:49:00 Singer [facility] POCT TEST 2022-04-26 14:45:00 Singer [facility] CONSENT/REFUSAL FOR DIAGNOSI S AND TREATMENT 2022-04-26 14:22:29 Doctor Unassigned, [place] [facility] POCT TEST 2022-04-26 01:22:00 Singer [facility] ASSIGNMENT OF BENEFITS 2022-04-26 00:54:02 Doctor Unassigned, [place] [facility] URINALYSIS 2022-04-26 00:45:00 Singer [facility] CONSENT/REFUSAL FOR DIAGNOSI S AND TREATMENT 2022-04-26 00:16:47 Doctor Unassigned, [place] [facility] BASIC METABOLIC PANEL (NA, K , CL, CO2, GLUCOSE, BUN, CREATININE, CA) 2022-04-07 22:35:00 Olamide Garvin [facility] CBC WITH DIFF 2022-04-07 22:35:00 Olamide Garvin [facility] URINALYSIS 2022-04-07 21:36:00 Olamide Garvin [facility] URINE DRUG (IMMUNOASSAY) - COMPREHENSIVE DRUG SCREEN W/O REFLEX 2022-04-07 21:36:00 Olamide Garvin [facility] CONSENT/REFUSAL FOR DIAGNOSI S AND TREATMENT 2022-04-07 19:29:15 Doctor Unassigned, [place] [facility] POCT TEST 2022-03-24 14:07:00 Kellie Piper [facility] CONSENT/REFUSAL FOR DIAGNOSI S AND TREATMENT 2022-03-24 13:27:20 Doctor Unassigned, [place] [facility] CT ABDOMEN PELVIS WO CONTRAST 2022-03-15 14:09:04 Lydia Colmenares [facility] URINALYSIS 2022-03-15 13:53:00 Lydia Colmenares [facility] POCT TEST 2022-03-15 13:52:00 Lydia Colmenares [facility] CONSENT/REFUSAL FOR DIAGNOSI S AND TREATMENT 2022-03-15 13:37:02 Doctor Unassigned, [place] [facility] [facility] 2022-03-11 14:59:00 Angelica Viveros [facility] FLU VACC ([id number]), 6 MO-6 4 YRS, .5ML, IM, QUAD (FLUCELVAX) 2022-02-27 13:34:55 Ca Martinez [facility] NOTICE OF PRIVACY PRACTICES 2022-02-21 06:06:30 Doctor Unassigned, [place] [facility] CONSENT/REFUSAL FOR DIAGNOSI S AND TREATMENT 2022-02-21 06:03:41 Doctor Unassigned, [place] [facility] XR ANKLE <3 VW RIGHT 2022 17:56:42 Maggie Hamilton [facility] CT ABDOMEN PELVIS W CONTRAST 2022 17:44:17 Maggie Hamilton [facility] CT TRAUMA CERVICAL SPINE WO CONTRAST 2022 17:43:49 Maggie Hamilton [facility] POCT TEST 2022 17:27:00 Maggie Hamilton [facility] COMP. METABOLIC PANEL (39554) 2022 17:17:00 Maggie Hamilton [facility] CBC WITH DIFF 2022 17:17:00 Maggie Hamilton [facility] CONSENT/REFUSAL FOR DIAGNOSI S AND TREATMENT 2022 16:53:13 Doctor Unassigned, [place] [facility] GALL BLADDER 2022-01-18 12:31:[address] [facility] PELVIS COMPLETE WITH TRANSVAGINAL 2022-01-18 12:21:13 Melvin Zhao [facility] CT ABDOMEN PELVIS W CONTRAST 2022-01-18 11:20:50 Melvin Zhao [facility] POCT TEST 2022-01-18 10:57:00 Juan Kennedy [facility] COVID-19 (ID NOW RAPID TESTING) 10:57:00 Juan Kennedy [facility] URINALYSIS 2022-01-18 10:47:00 Juan Kennedy [facility] LIPASE 2022-01-18 10:29:00 Juan Kennedy [facility] TEST, SERUM 2022-01-18 10:29:00 Juan Kennedy [facility] HEPATIC FUNCTION PANEL ([id number]) (ALB,T.PRO,BILI T,BU/BC,ALT,AST,ALK PHOS) 2022-01-18 10:29:00 Juan Kennedy [facility] BASIC METABOLIC PANEL (NA, K , CL, CO2, GLUCOSE, BUN, CREATININE, CA) 2022-01-18 10:29:00 Juan Kennedy [facility] CBC WITH DIFF 2022-01-18 10:29:00 Juan Kennedy [facility] CONSENT/REFUSAL FOR DIAGNOSI S AND TREATMENT 2022-01-18 10:13:31 Doctor Unassigned, [place] [facility] CT HEAD WO CONTRAST 2022-01-15 15:22:29 Mauar Cox [facility] TEST, SERUM 2022-01-15 14:36:00 Maura Cox [facility] BASIC METABOLIC PANEL (NA, K , CL, CO2, GLUCOSE, BUN, CREATININE, CA) 2022-01-15 14:36:00 Maura Cox [facility] CBC WITH DIFF 2022-01-15 14:36:00 Maura Cox [facility] CONSENT/REFUSAL FOR DIAGNOSI S AND TREATMENT 2022-01-15 13:28:12 Doctor Unassigned, [place] [facility] XR CERVICAL SPINE 4 VW 2022-01-09 00:29:16 [facility] LUMBAR SPINE 4 VW 2022-01-09 00:29:16 [facility] SPINE THORACIC 3 VW 2022-01-09 00:29:16 [facility] URINALYSIS 2022-01-08 23:50:00 [facility] CONSENT/REFUSAL FOR DIAGNOSI S AND TREATMENT 2022-01-08 22:51:08 Doctor Unassigned, [place] [facility] GALV ONLY - VAGINAL PATHOGEN S BY NUCLEIC ACID TESTING 2021-12-12 18:37:00 Prasanna Vargas [facility] URINE CULTURE 2021-12-12 18:32:00 Prasanna Vargas [facility] POCT TEST 2021-12-12 18:31:00 Prasanna Vargas [facility] POCT URINALYSIS W/O SPECIFIC GRAVITY 2021-12-12 18:31:00 Prasanna Vargas [facility] Encounters Start Date/Time End Date/Time Encounter Type Admission Type Attending [facility] Care Department Encounter ID Source 2024-08-04 08:31:[address] [facility] [id number] [facility] 2021-03-14 03:14:31 Emergency [facility] [id number] [facility] 2021-03-13 20:05:20 Emergency [facility] [id number] [facility] 2021-03-13 12:48:28 Emergency [facility] [id number] [facility] 2021-03-13 02:43:51 Emergency [facility] [id number] [facility] 2021-03-13 00:27:09 Emergency [facility] [id number] [facility] 2021-03-12 22:10:36 Emergency [facility] [id number] [facility] 2021-03-12 20:04:05 Emergency [facility] [id number] [facility] 2021-03-12 15:25:05 Emergency [facility] [id number] [facility] 2021-03-12 11:43:36 Emergency [facility] [id number] [facility] 2021-03-12 07:41:37 Emergency [facility] [id number] [facility] 2021-03-12 05:43:47 Emergency [facility] [id number] [facility] 2021-03-12 03:43:41 Emergency [facility] [id number] [facility] 2021-03-12 01:31:27 Emergency [facility] [id number] [facility] 2021-03-12 00:56:44 Emergency X [facility] [id number] [facility] 2021-03-12 00:56:31 Emergency [facility] [id number] [facility] 2021-03-11 17:47:02 Emergency [facility] [id number] [facility] 2021-03-11 16:27:15 Emergency [facility] [id number] [facility] 2021-03-11 12:00:58 Emergency [facility] [id number] [facility] 2021-03-11 10:33:59 Emergency [facility] [id number] [facility] 2021-03-11 01:36:52 Emergency [facility] [id number] [facility] 2021-03-10 23:35:34 Emergency [facility] [id number] [facility] 2021-03-10 19:06:16 Emergency [facility] [id number] [facility] 2021-03-10 12:39:47 Emergency [facility] [id number] [facility] 2021-03-10 06:54:04 Emergency [facility] [id number] [facility] 2021-03-09 13:25:44 Outpatient P [facility] [id number] [facility] 2021-03-09 13:08:01 Outpatient P [facility] [id number] [facility] 2021-03-09 12:37:25 Outpatient P [facility] [id number] [facility] 2021-03-09 11:51:20 Outpatient P [facility] [id number] [facility] 2024-08-02 10:16:00 2024-08-02 12:25:00 Emergency X ALEKSANDR STEWART JULIO [facility] ERT [id number] [facility] 2024-08-02 10:16:00 2024-08-02 12:25:00 Emergency Aleksandr Stewart [facility] ([place]) 1.840.114 350.1.13.10 4.2.7.2.686 [id number] [facility] 2024-07-27 17:21:07 2024-07-27 17:21:07 Outpatient [facility] [id number] Willis F Jeffery 2024-02-28 00:00:00 2024-06-27 06:46:51 Orders Only Doctor Unassigned, [place] Doctor Unassigned, [place] [facility] ([place]) 1..840.114 350.1.13.10 4.2.7.2.686 [id number] [facility] 2022-08-27 00:00:00 2024-06-27 02:42:04 Orders Only Marrufo, Palak Marrufo, Palak [facility] TALYA?[facility] BU[facility] 1.2.840.114 350.1.13.10 4.2.7.2.686 [id number] [facility] 2022-08-28 00:00:00 2024-06-27 02:42:02 Orders Only Marrufo, Palak Marrufo, Palak [facility] TALYA?[facility] 1.2840.114 350.1.13.10 4.2.7.2.686 [id number] [facility] 2022-08-29 00:00:00 2024-06-27 02:41:59 Orders Only Marrufo, Palak Marrufo, Palak [facility] T[facility] 1.2840.114 350.1.13.10 4.2.7.2.686 [id number] [facility] 2022-09-24 00:00:00 2024-06-27 02:41:25 Orders Only Marrufo, Palak Marrufo, Palak [facility] 1.2840.114 350.1.13.10 4.2.7.2.686 [id number] [facility] 2022-09-27 00:00:00 2024-06-27 02:41:19 Orders Only Marrufo, Palak Marrufo, Palak [facility] MED[facility] OFF[facility] BU[facility] 1.2840.114 350.1.13.10 4.2.7.2.686 [id number] [facility] 2022-10-02 00:00:00 2024-06-27 02:41:14 Orders Only Marrufo, Palak Marrufo, Palak [facility] MED[facility] OFF[facility] BU[facility] 1.114 350.1.13.10 4.2.7.2.686 [id number] [facility] 2022-11-15 00:00:00 2024-06-27 02:40:23 Orders Only Niru, Palak Marrufo, Palak [facility] MEDICAL OFFICE BUILD[facility] 1.114 350.1.13.10 4.2.7.2.686 [id number] [facility] 2024-05-19 12:49:00 2024-05-19 16:37:00 Emergency X ANAMARIA GONZALES DONNELL [facility] ERT [id number] [facility] 2024-05-19 12:49:00 2024-05-19 16:37:00 Emergency Anamaria Gonzales [facility] 1.114 350.1.13.10 4.2.7.2.686 [id number] [facility] 2024-04-19 07:55:00 2024-04-19 09:58:00 Emergency X ROSENDO LEVY BRENT [facility] ERT [id number] [facility] 2024-04-19 07:55:00 2024-04-19 09:58:00 Emergency Rosendo Levy [facility] 1.114 350.1.13.10 4.2.7.2.686 [id number] [facility] 2024-03-18 00:00:00 2024-04-18 18:19:35 Patient Secure Msg Doctor Unassigned, [place] Doctor Unassigned, [place] [facility] ([place]) 1..114 350.1.13.10 4.2.7.2.686 [id number] [facility] 2024-04-12 11:54:00 2024-04-12 14:39:00 Emergency T ARAM PARADA [facility] STR [id number] [facility] 2024-04-12 11:54:00 2024-04-12 14:39:00 Emergency Aram Parada [facility] ([place]) 1.20.114 350.1.13.10 4.2.7.2.686 [id number] [facility] 2024-04-12 09:23:00 2024-04-12 10:42:00 Emergency X MAGGIE HAMILTON, MAGGIE [facility] ERT [id number] [facility] 2024-04-12 09:23:00 2024-04-12 10:42:00 Emergency Olamide Garvin Sandra J [facility] 1.20.114 350.1.13.10 4.2.7.2.686 [id number] [facility] 2024-03-10 09:43:00 2024-03-13 10:40:00 Inpatient X TAJ DE PAZ MICHAEL [facility] [id number] [facility] 2024-03-10 09:43:00 2024-03-13 10:40:00 Hospital Encounter Fidel, Alfredo Manuel, Jose Mao, Taj Milner [facility] ([place]) 1.2.114 350.1.13.10 4.2.7.2.686 [id number] [facility] 2024-03-06 00:00:00 2024-03-06 08:40:48 Transition of Care Marlys Odell Antoinette [place] 1.2840.114 350.1.13.10 4.2.7.2.686 [id number] [facility] 2024-03-04 06:46:00 2024-03-05 16:30:00 Outpatient X JOSE MANDUJANO MYRNA [facility] [id number] [facility] 2024-03-04 06:46:00 2024-03-05 16:30:00 Emergency Wanda Jesus Jose Mandujano [facility] ([place]) 1.2.840.114 350.1.13.10 4.2.7.2.686 [id number] [facility] 2024-03-03 00:00:00 2024-03-04 15:45:46 Patient Secure Jas Piedra [facility] ([facility] 1.2.840.114 350.1.13.10 4.2.7.2.686 [id number] [facility] 2024-03-03 00:00:00 2024-03-03 12:14:14 Telephone Giselle Vance [facility] ([place]) 1.2.840.114 350.1.13.10 4.2.7.2.686 [id number] [facility] 2024-02-28 00:00:00 2024-02-28 09:08:41 Transition of Care Tc Renteria Michele A [place] 1.2.840.114 350.1.13.10 4.2.7.2.686 [id number] [facility] 2024-02-22 09:35:00 2024-02-27 16:59:00 Inpatient X HANY LEE [facility] [id number] [facility] 2024-02-22 09:35:00 2024-02-27 16:59:00 Hospital Encounter oClin Jones Megan A [facility] ([place]) 1.2.840.114 350.1.13.10 4.2.7.2.686 [id number] [facility] 2024-02-27 09:40:00 2024-02-27 10:51:00 Surgery Jas Buenrostro [facility] 1.2.840.114 350.1.13.10 4.2.7.2.686 [id number] [facility] 2024-02-27 09:22:00 2024-02-27 10:26:00 Anesthesia Event Peter Reece [facility] 1.2840.114 350.1.13.10 4.2.7.2.686 [id number] [facility] 2024-02-24 00:00:00 2024-02-24 09:18:09 Telephone Naty Buenrostro [facility] 1.2.840.114 350.1.13.10 4.2.7.2.686 [id number] [facility] 2023-12-23 15:39:53 2023-12-23 15:39:53 Outpatient [facility] [id number] Willis Gil 2023-12-08 14:51:46 2023-12-08 14:51:46 Outpatient [facility] [id number] Willis Gil 2023-09-12 00:00:00 2023-09-12 00:00:00 Outpatient ROLDAN QUIROZ [facility] [id number] [facility] 2023-08-26 00:00:00 2023-08-26 00:00:00 Transition of Care Marlys Odell [place] 1.2.840.114 350.1.13.10 4.2.7.2.686 [id number] [facility] 2023-08-23 08:31:00 2023-08-24 13:25:00 Outpatient ROLDAN PARKER [facility] [place] [id number] [facility] 2023-08-04 14:56:23 2023-08-04 14:56:23 Outpatient [facility] [id number] Willis Gil 2023-06-27 14:47:45 2023-06-27 14:47:45 Outpatient [facility] [id number] Willis Gil 2023-05-19 09:04:00 2023-05-19 12:20:00 Emergency X TOD AGUILAR [facility] ERT [id number] [facility] 2023-05-19 09:04:00 2023-05-19 12:20:00 Emergency AdeAnna Marie dohertyzohra [facility] 1.84.114 350.1.13.10 4.2.7.2.686 [id number] [facility] 2023-04-05 00:00:00 2023-04-05 00:00:00 Patient Secure MsPrasanna Lyman [facility] PROF[facility] BU[facility] 1.84.114 350.1.13.10 4.2.7.2.686 [id number] [facility] 2023-02-14 12:59:23 2023-02-14 12:59:23 Outpatient [facility] [id number] Willis Gil 2023-02-06 18:19:02 2023-02-06 18:19:02 Outpatient [facility] [id number] Willis Gil 2023-01-30 00:00:00 2023-01-30 00:00:00 Outpatient BILL_R [facility] [id number] [facility] 2023-01-16 00:00:00 2023-01-16 00:00:00 Transition of Care Marlys Odell 1.84.114 350.1.13.10 4.2.7.2.686 [id number] [facility] 2023-01-11 21:06:00 2023-01-15 16:00:00 Inpatient X KUN STEELE [facility] DAVID [id number] [facility] 2023-01-11 21:06:00 2023-01-15 16:00:00 Hospital Encounter Miguel Ángel Siddiqui, Mirella Steele, Kun [facility] 1.2.840.114 350.1.13.10 4.2.7.2.686 [id number] [facility] 2023-01-12 00:00:00 2023-01-12 00:00:00 Travel 1.2.840.1 [id number] 3.104.2.7 .3.037716 .8 1.2.840.114 350.1.13.10 4.2.7.3.698 [id number] [facility] 2023-01-11 00:00:00 2023-01-11 00:00:00 Travel 1.2.840.1 46052.1.1 3.104.2.7 .3.203733 .8 1.2.840.114 350.1.13.10 4.2.7.3.698 [id number] [facility] 2022-12-28 00:00:00 2022-12-28 00:00:00 Outpatient ERICKSON_R [facility] [id number] 2022-12-14 18:37:13 2022-12-14 18:37:13 Outpatient STEFANY [facility] [id number] Willis Gil 2022-12-13 00:00:00 2022-12-13 00:00:00 Outpatient ERICKSON_R [facility] [id number] 2022-12-12 09:30:00 2022-12-12 09:30:00 Outpatient PRASANNA LOOMIS [facility] [id number] [facility] 2022-11-21 13:08:00 2022-11-21 16:45:00 Emergency X MANJU ARGUELLES [facility] ERT [id number] [facility] 2022-11-21 13:08:00 2022-11-21 16:45:00 Emergency Singer Oc ThakkarManju matos 1.2.840.1 03471.1.1 3.104.2.7 .3.556770 .8 [id number] [facility] 2022-11-21 00:00:00 2022-11-21 00:00:00 Travel 1.2.840.1 [id number] 3.104.2.7 .3.251452 .8 1.2.840.114 350.1.13.10 4.2.7.3.698 [id number] [facility] 2022-11-18 10:08:00 2022-11-18 10:08:00 Outpatient [facility] [id number] Willis Gil 2022-11-15 09:40:00 2022-11-15 09:40:00 Outpatient JEREMY LABOY CHRISTINE [facility] [id number] [facility] 2022-11-09 15:26:18 2022-11-09 15:26:18 Outpatient [facility] [id number] Willis Gil 2022-11-06 13:00:00 2022-11-06 13:00:00 Outpatient CA ARAUZ [facility] [id number] [facility] 2022-10-29 00:00:00 2022-10-29 00:00:00 Patient Secure Msg Jeremy Greene 1.2.840.1 81381.1.1 3.104.2.7 .3.689828 .8 [id number] [facility] 2022-10-29 00:00:00 2022-10-29 00:00:00 Patient Secure Msg Prasanna Vargas 1.2.840.1 [id number] 3.104.2.7 .3.959579 .8 [id number] [facility] 2022-10-03 00:00:00 2022-10-03 00:00:00 Letter (Out) Roldan Walker [facility] TALYA?[facility] 1.2.840.114 350.1.13.10 4.2.7.2.686 [id number] [facility] 2022-10-02 10:00:00 2022-10-02 10:00:00 Outpatient R DESIREE FINNEY [facility] [id number] [facility] 2022-10-01 09:40:00 2022-10-01 09:40:00 Outpatient R REJI GARCIA [facility] [id number] [facility] 2022-09-25 00:00:00 2022-09-25 00:00:00 Telephone Rad Serra [facility] NAL BUILD[facility] 1..840.114 350.1.13.10 4.2.7.2.686 [id number] [facility] 2022-09-21 09:30:00 2022-09-21 09:30:00 Outpatient R LONNY PUGHSSICA [facility] [id number] [facility] 2022-09-21 00:00:00 2022-09-21 00:00:00 [facility] 1.840.114 350.1.13.10 4.2.7.2.686 [id number] [facility] 2022-09-21 00:00:00 2022-09-21 00:00:00 [facility] 1.2840.114 350.1.13.10 4.2.7.2.686 [id number] [facility] 2022-09-21 00:00:00 2022-09-21 00:00:00 [facility] 1.2.840.114 350.1.13.10 4.2.7.2.686 [id number] [facility] 2022-09-14 09:30:00 2022-09-14 09:30:00 Outpatient KASSANDRA MCKINLEY [facility] [id number] [facility] 2022-09-12 00:00:00 2022-09-12 00:00:[address] [facility] OFF[facility] BUILD[facility] 1.840.114 350.1.13.10 4.2.7.2.686 [id number] [facility] 2022-09-07 11:30:00 2022-09-07 11:30:00 [facility] [id number] 2022-09-05 08:44:00 2022-09-05 13:15:00 Emergency X KENNEDY HUTCHINS [facility] ERT [id number] [facility] 2022-09-05 08:44:00 2022-09-05 13:15:00 Emergency Kennedy Hutchins [facility] 1.840.114 350.1.13.10 4.2.7.2.686 [id number] [facility] 2022-09-04 00:00:00 2022-09-04 00:00:[address] [facility] 1.840.114 350.1.13.10 4.2.7.2.686 [id number] [facility] 2022-09-04 00:00:00 2022-09-04 00:00:00 Patient Secure Rad Wells [facility] PROFESSIO NAL BUILDING 1.840.114 350.1.13.10 4.2.7.2.686 [id number] [facility] 2022-08-29 09:00:00 2022-08-29 09:00:00 Outpatient R DESIREE FINNEY [facility] [id number] [facility] 2022-08-14 00:00:00 2022-08-14 00:00:00 Patient Secure Msg Doctor Unassigned, [place] [facility] 1.840.114 350.1.13.10 4.2.7.2.686 [id number] [facility] 2022-07-31 17:56:00 2022-07-31 20:30:00 Emergency X MANJU ARGUELLES [facility] ERT [id number] [facility] 2022-07-31 17:56:00 2022-07-31 20:30:00 Emergency Manju Arguelles [facility] 1.840.114 350.1.13.10 4.2.7.2.686 [id number] [facility] 2022-07-15 09:46:45 2022-07-15 23:59:00 Outpatient R BEBA KAUR [facility] [id number] [facility] 2022-07-15 09:46:45 2022-07-15 23:59:00 Hospital Encounter Beba Kaur [facility] 1.840.114 350.1.13.10 4.2.7.2.686 [id number] [facility] 2022-07-15 09:46:45 2022-07-15 23:59:00 Hospital Encounter Beba Kaur [facility] 1..840.114 350.1.13.10 4.2.7.2.686 [id number] [facility] 2022-07-15 09:20:00 2022-07-15 10:29:17 Urgent Care Beba Kaur Unknown, Attending [facility]ILD[facility] 1.2.840.114 350.1.13.10 4.2.7.2.686 [id number] [facility] 2022-07-15 00:00:00 2022-07-15 00:00:00 Orders Only Doctor Unassigned, [place] [facility] 1.2.840.114 350.1.13.10 4.2.7.2.686 [id number] [facility] 2022-06-23 09:20:00 2022-06-23 10:27:39 Outpatient R VELMA SAMAYOACYNDI [facility] [id number] [facility] 2022-06-23 09:20:00 2022-06-23 10:27:39 Urgent Care Kirk Samayoa Unknown, Attending [facility] OFFICE BUILDING 1.2.840.114 350.1.13.10 4.2.7.2.686 [id number] [facility] 2022-06-23 00:00:00 2022-06-23 00:00:00 Orders Only Doctor Unassigned, [place] [facility] 1.2.840.114 350.1.13.10 4.2.7.2.686 [id number] [place] [facility]15 09:40:00 2022-06-15 09:40:00 Outpatient R JEREMY GREENE [facility] [id number] [facility] 2022-05-29 08:00:00 2022-05-29 08:00:00 Outpatient R KASSANDRA PUGH [facility] [id number] [facility] 2022-05-15 09:20:00 2022-05-15 09:20:00 Outpatient R BENNETT MILLER [facility] [id number] [facility] 2022-05-11 09:30:00 2022-05-11 09:30:00 Outpatient Farzana PUGHKASSANDRA [facility] [id number] [facility] 2022-05-05 12:26:00 2022-05-05 16:11:00 Emergency X KARON NORTON [facility] ERT [id number] [facility] 2022-05-05 12:26:00 2022-05-05 16:11:00 Emergency Karon Norton [facility] 1.2.840.114 350.1.13.10 4.2.7.2.686 [id number] [facility] 2022-05-01 00:00:00 2022-05-01 00:00:00 Outpatient PRASANNA LOOMIS VIEN [facility] [id number] [facility] 2022-04-26 08:30:00 2022-04-26 09:59:00 Emergency X OC BRIDGES [facility] ERT [id number] [facility] 2022-04-26 08:30:00 2022-04-26 09:59:00 Emergency Oc Bridges [facility] 1.2.840.114 350.1.13.10 4.2.7.2.686 [id number] [facility] 2022-04-25 18:23:00 2022-04-25 21:55:00 Emergency X KENNEDY HUTCHINS [facility] ERT [id number] [facility] 2022-04-25 18:23:00 2022-04-25 21:55:00 Emergency Kennedy Hutchins [facility] 1.2.840.114 350.1.13.10 4.2.7.2.686 [id number] [facility] 2022-04-19 10:00:00 2022-04-19 10:00:00 Outpatient JEREMY LABOY [facility] [id number] [facility] 2022-04-12 00:00:00 2022-04-12 00:00:00 [facility] MED[facility] OFF[facility] BU[facility] 1.2.840.114 350.1.13.10 4.2.7.2.686 [id number] [facility] 2022-04-11 00:00:00 2022-04-11 00:00:00 Telephone Darrion Armstrong [facility] TALYA?[facility] MED[facility] OFFICE BUILD[facility] 1..840.114 350.1.13.10 4.2.7.2.686 [id number] [facility] 2022-04-10 00:00:00 2022-04-10 00:00:00 [facility] MED[facility] OFF[facility] BU[facility] 1.2.840.114 350.1.13.10 4.2.7.2.686 [id number] [facility] 2022-04-09 09:30:00 2022-04-09 09:30:00 Office Visit Lonny Pughssica [facility] T[facility]YA[facility] MED[facility] OFF[facility] BUILD[facility] 1.2.840.114 350.1.13.10 4.2.7.2.686 [id number] [facility] 2022-04-09 09:30:00 2022-04-09 09:21:44 [id number] [facility] 2022-04-07 13:41:00 2022-04-07 17:49:00 Emergency X OLAMIDE GARVIN [facility] ERT [id number] [facility] 2022-04-07 13:41:00 2022-04-07 17:49:00 Emergency Olamide Garvin [facility] 1.2.840.114 350.1.13.10 4.2.7.2.686 [id number] [facility] 2022-04-07 00:00:00 2022-04-07 00:00:00 Patient Secure Msg Doctor Unassigned, [place] [facility] 1.2.840.114 350.1.13.10 4.2.7.2.686 [id number] [facility] 2022-04-04 00:00:00 2022-04-04 00:00:00 [facility] MEDICAL OFFICE [facility] 1..840.114 350.1.13.10 4.2.7.2.686 [id number] [facility] 2022-04-02 10:30:00 2022-04-02 10:30:00 Outpatient KASSANDRA MCKINLEY [facility] [id number] [facility] 2022-03-28 00:00:00 2022-03-28 00:00:00 Patient Secure Msg Doctor Unassigned, [place] [facility] MEDICAL OFFICE BUILDING 1.2.840.114 350.1.13.10 4.2.7.2.686 [id number] [facility] 2022-03-24 07:35:00 2022-03-24 13:11:00 Emergency X KELLIE PIPER [facility] ERT [id number] [facility] 2022-03-24 07:35:00 2022-03-24 13:11:00 Emergency Kellie Piper [facility] 1..840.114 350.1.13.10 4.2.7.2.686 [id number] [facility] 2022-03-23 10:30:00 2022-03-23 10:30:00 Outpatient KASSANDRA MCKINLEY [facility] [id number] [facility] 2022-03-23 00:00:00 2022-03-23 00:00:00 Telephone Darrion Armstrong [facility] TALYA?[facility] 1.2.840.114 350.1.13.10 4.2.7.2.686 [id number] [facility] 2022-03-22 00:00:00 2022-03-22 00:00:00 Telephone Darrion Armstrong [facility] TALYA?[facility] 1.2.840.114 350.1.13.10 4.2.7.2.686 [id number] [id number] [facility] 2022-03-22 00:00:00 2022-03-22 00:00:00 Refill Patti [facility] TALYA?[facility] 1..840.114 350.1.13.10 4.2.7.2.686 [id number] [facility] 2022-03-21 00:00:00 2022-03-21 00:00:00 Telephone Patti [facility] TALYA?[facility] 1.2.840.114 350.1.13.10 4.2.7.2.686 [id number] [facility] 2022-03-15 14:00:00 2022-03-15 14:36:19 Outpatient R REJI GARCIA [facility] [id number] [facility] 2022-03-15 14:00:00 2022-03-15 14:36:19 Office Visit Reji Garcia [facility] PROFESSIO NAL BUILDING 1.2.840.114 350.1.13.10 4.2.7.2.686 [id number] [facility] 2022-03-15 08:40:00 2022-03-15 10:47:00 Emergency X LYDIA COLMENARES [facility] ERT [id number] [facility] 2022-03-15 08:40:00 2022-03-15 10:47:00 Emergency Lydia Colmenares [facility] 1.2.840.114 350.1.13.10 4.2.7.2.686 [id number] [facility] 2022-03-14 10:30:00 2022-03-14 10:30:00 Outpatient PRASANNA LOOMIS [facility] [id number] [facility] 2022-03-11 09:22:00 2022-03-11 12:15:00 Emergency [facility] [id number] [facility] 2022-03-11 09:22:00 2022-03-11 12:15:00 Emergency Angelica Viveros [facility] 1..840.114 350.1.13.10 4.2.7.2.686 [id number] [facility] 2022-03-06 08:30:00 2022-03-06 08:30:00 Outpatient KASSANDRA MCKINLEY [facility] [id number] [facility] 2022-03-02 00:00:00 2022-03-02 00:00:00 Telephone PattiDarrion [facility] MEDICAL OFFICE BUILDING 1..840.114 350.1.13.10 4.2.7.2.686 [id number] [facility] 2022-02-28 00:00:00 2022-02-28 00:00:00 Patient Secure Msg Doctor Unassigned, [place] [facility] MEDICAL OFFICE BUILDING 1..840.114 350.1.13.10 4.2.7.2.686 [id number] [facility] 2022-02-27 09:30:00 2022-02-27 09:49:42 Outpatient KASSANDRA MCKINLEY [facility] [id number] [facility] 2022-02-27 09:30:00 2022-02-27 09:49:42 Office Visit Kassandra Pugh [facility] TALYA?[facility] 1.2840.114 350.1.13.10 4.2.7.2.686 [id number] [facility] 2022-02-27 08:00:00 2022-02-27 09:12:17 Office Visit Ca Martinez [facility] TALYA?[facility] 1..114 350.1.13.10 4.2.7.2.686 [id number] [facility] 2022-02-26 11:30:00 2022-02-26 11:30:00 Outpatient R LONNY PUGHSSICA [facility] [id number] [facility] 2022-02-21 01:20:00 2022-02-21 03:44:00 Emergency X MAGGIE HAMILTON [facility] ERT [id number] [facility] 2022-02-21 01:20:00 2022-02-21 03:44:00 Emergency Maggie Hamilton [facility] 1..114 350.1.13.10 4.2.7.2.686 [id number] [facility] 2022-02-19 00:00:00 2022-02-19 00:00:00 Patient Secure Msg Kendal Zamudio [facility] 1..114 350.1.13.10 4.2.7.2.686 [id number] [facility] 2022-02-19 00:00:00 2022-02-19 00:00:00 Patient Secure Msg Kendal Zamudio [facility] TALYA?[facility] 1.0.114 350.1.13.10 4.2.7.2.686 [id number] [facility] 2022-02-19 00:00:00 2022-02-19 00:00:00 Patient Secure Msg Santiago Valencia [facility]ACO MELO 1.2840.114 350.1.13.10 4.2.7.2.686 [id number] [facility] 2022-02-19 00:00:00 2022-02-19 00:00:00 Patient Secure Msg Ross Salazar [facility] INSPECTOR [place] [place] CONTAINER [facility] & [facility]ILD [facility] 1..114 350.1.13.10 4.2.7.2.686 [id number] [facility] 2022 11:58:00 2022 15:13:00 Emergency X MAGGIE HAMILTON [facility] ERT [id number] [facility] 2022 11:58:00 2022 15:13:00 Emergency Maggie Hamilton [facility] 1..114 350.1.13.10 4.2.7.2.686 [id number] [facility] 2022-02-09 09:00:00 2022-02-09 09:00:00 Outpatient R CRICKET TAYLOR [facility] [id number] [facility] 2022-02-06 10:00:00 2022-02-06 10:00:00 Outpatient R CA MARTINEZ [facility] [id number] [facility] 2022-02-05 09:45:00 2022-02-05 10:05:00 Nurse Visit Nurse, Filippo [facility] Willie Medrano [facility] 1.84.114 350.1.13.10 4.2.7.2.686 [id number] [facility] 2022-02-05 09:20:00 2022-02-05 09:20:00 Outpatient FLACO KEE [facility] [id number] [facility] 2022-01-26 00:00:00 2022-01-26 00:00:00 Case Management VargasPrasanna [facility] 1.114 350.1.13.10 4.2.7.2.686 [id number] [facility] 2022-01-22 11:00:00 2022-01-22 11:00:00 Outpatient CA ARAUZ [facility] [id number] [facility] 2022-01-19 00:00:00 2022-01-19 00:00:00 Patient Secure Msg Doctor Unassigned, [place] [facility] 1.114 350.1.13.10 4.2.7.2.686 [id number] [facility] 2022-01-18 05:17:00 2022-01-18 10:25:00 Emergency ROSENDO WALTON [facility] ERT [id number] [facility] 2022-01-18 05:17:00 2022-01-18 10:25:00 Emergency Juan Kennedy [facility] 1..114 350.1.13.10 4.2.7.2.686 [id number] [facility] 2022-01-15 08:34:00 2022-01-15 10:49:00 Emergency MAURA DALE [facility] ERT [id number] [facility] 2022-01-15 08:34:00 2022-01-15 10:49:00 Emergency Larry Perez Robert Lee [facility] 1.114 350.1.13.10 4.2.7.2.686 [id number] [facility] 2022-01-08 18:04:00 2022-01-08 20:09:00 Emergency X HUMBERTO OCHOA [facility] ERT [id number] [facility] 2022-01-08 18:04:00 2022-01-08 20:09:00 Emergency Humberto Ochoa [facility] 1.2.840.114 350.1.13.10 4.2.7.2.686 [id number] [facility] 2021-12-12 13:30:00 2021-12-12 13:40:21 Outpatient Farzana CARNES [facility] [id number] [facility] 2021-12-12 13:30:00 2021-12-12 13:40:21 Office Visit Prasanna Vargas [facility] 1.2.840.114 350.1.13.10 4.2.7.2.686 [id number] [facility] 2021-12-12 13:30:00 2021-12-12 13:40:21 Outpatient R DEYVI [facility] [id number] [facility] 2021-12-12 13:30:00 2021-12-12 13:40:21 Outpatient R DEYVI [facility] [id number] [facility] 2021-12-11 16:15:00 2021-12-11 16:15:00 Outpatient R SANTIAGO VALENCIA [facility] [id number] [facility] 2021-12-05 14:15:00 2021-12-05 14:15:00 Outpatient ROMULO BROWNING [facility] [id number] [facility] 2021-11-28 08:49:00 2021-11-28 11:02:00 Emergency X KARON NORTON [facility] ERT [id number] [facility] 2021-11-28 08:49:00 2021-11-28 11:02:00 Emergency Karon Norton [facility] 1.2.840.114 350.1.13.10 4.2.7.2.686 [id number] [facility] 2021-11-28 00:00:00 2021-11-28 00:00:00 Patient Secure Msg Cricket Taylor [facility] INSPECTOR [place] CONTAINER [facility] CHILD [facility] 1.2840.114 350.1.13.10 4.2.7.2.686 [id number] [facility] 2021-11-24 18:14:00 2021-11-24 21:04:00 Emergency X Kaycee MÉNDEZ [facility] ERT [id number] [facility] 2021-11-24 18:14:00 2021-11-24 21:04:00 Emergency Kaycee Méndez [facility] 1.840.114 350.1.13.10 4.2.7.2.686 [id number] [facility] 2021-11-24 00:00:00 2021-11-24 00:00:00 Telephone Cricket Taylor [facility] INSPECTOR [place] [place] CONTAINER [facility] 1.840.114 350.1.13.10 4.2.7.2.686 [id number] [facility] 2021-11-20 00:00:00 2021-11-20 00:00:00 Patient Secure Msg Kendal [facility] 1.840.114 350.1.13.10 4.2.7.2.686 [id number] [facility] 2021-11-19 00:00:00 2021-11-19 00:00:00 Letter (Out) Leslie Santacruz [facility] 1.840.114 350.1.13.10 4.2.7.2.686 [id number] [facility] 2021-11-18 10:41:40 2021-11-18 23:59:00 Outpatient R NOELLE BOYDTANY [facility] [id number] [facility] 2021-11-18 10:41:40 2021-11-18 23:59:00 Hospital Encounter [facility] MEDICAL OFFICE BUILDING 1.84.114 350.1.13.10 4.2.7.2.686 [id number] [facility] 2021-11-18 10:20:00 2021-11-18 10:53:20 Urgent Care [facility] MEDICAL OFFICE BUILDING 1.84.114 350.1.13.10 4.2.7.2.686 [id number] [facility] 2021-11-09 10:30:00 2021-11-09 10:30:00 Outpatient R DESIREE MOHR [facility] [id number] [facility] 2021-10-25 13:20:00 2021-10-25 13:20:00 Urgent Care Willie Medrano [facility] 1.840.114 350.1.13.10 4.2.7.2.686 [id number] [facility] 2021-10-25 13:20:00 2021-10-25 12:47:59 Outpatient R WILLIE MEDRANO [facility] [id number] [facility] 2021-10-25 00:00:00 2021-10-25 00:00:00 Patient Secure Ca Caraballo [facility] MEDICAL OFFICE BUILDING 1.840.114 350.1.13.10 4.2.7.2.686 [id number] [facility] 2021-10-25 00:00:00 2021-10-25 00:00:00 Telephone Juan Ca [facility] MEDICAL OFFICE BUILDING 1.2.840.114 350.1.13.10 4.2.7.2.686 [id number] [facility] 2021-10-25 00:00:00 2021-10-25 00:00:00 Telephone Provider, Filippo [facility] MEDICAL OFFICE BUILDING 1.2.840.114 350.1.13.10 4.2.7.2.686 [id number] [facility] 2021-10-25 00:00:00 2021-10-25 00:00:00 Telephone Nurse, Filippo Casper [facility] Care [facility] MEDICAL OFFICE BUILDING 1.2.840.114 350.1.13.10 4.2.7.2.686 [id number] [facility] 2021-10-24 10:15:00 2021-10-24 10:15:00 Outpatient ROMULO BROWNING [facility] [id number] [facility] 2021-10-24 10:15:00 2021-10-24 10:15:00 Outpatient ROMULO BROWNING [facility] [id number] [facility] 2021-10-11 09:30:00 2021-10-11 09:30:00 Outpatient ROMULO BROWNING [facility] [id number] [facility] 2021-10-10 13:30:00 2021-10-10 13:30:00 Outpatient PRASANNA LOOMIS [facility] [id number] [facility] 2021-10-10 13:30:00 2021-10-10 13:30:00 Outpatient PRASANNA LOOMIS [facility] [id number] [facility] 2021-10-10 13:30:00 2021-10-10 13:30:00 Outpatient PRASANNA LOOMIS [facility] [id number] [facility] 2021-10-10 13:30:00 2021-10-10 13:30:00 Outpatient PRASANNA LOOMIS [facility] [id number] [facility] 2021-10-10 13:30:00 2021-10-10 13:30:00 Outpatient PRASANNA LOOMIS [facility] [id number] [facility] 2021-10-10 13:30:00 2021-10-10 13:30:00 Outpatient PRASANNA LOOMIS [facility] [id number] [facility] 2021-10-10 13:30:00 2021-10-10 13:30:00 Outpatient PRASANNA LOOMIS [facility] [id number] [facility] 2021-10-05 00:00:00 2021-10-05 00:00:00 Patient Secure [facility] OFF[facility] BUILD[facility] 1.840.114 350.1.13.10 4.2.7.2.686 [id number] [facility] 2021-10-05 00:00:00 2021-10-05 00:00:00 Patient Secure Msg Zamudio [facility] MEDICAL OFFICE BUILDING 1.84.114 350.1.13.10 4.2.7.2.686 [id number] [facility] 2021-10-04 00:00:00 2021-10-04 00:00:00 Pre Visit Outreach Melia Rodriguez 1.284.114 350.1.13.10 4.2.7.2.686 [id number] [facility] 2021-09-28 13:30:00 2021-09-28 13:45:00 Office Visit Desiree Mohr [facility] MELO 1.284.114 350.1.13.10 4.2.7.2.686 [id number] [facility] 2021-09-28 13:30:00 2021-09-28 13:30:00 Outpatient Farzana DESIREE MOHR [facility] [id number] [facility] 2021-09-28 13:30:00 2021-09-28 13:30:00 Outpatient DESIREE STONE [facility] [id number] [facility] 2021-09-28 00:00:00 2021-09-28 00:00:00 Patient Secure OnurRichelleDesiree [facility] 1.2.840.114 350.1.13.10 4.2.7.2.686 [id number] [facility] 2021-09-27 14:00:00 2021-09-27 14:00:00 Outpatient TETO BRANTLEY [facility] [id number] [facility] 2021-09-27 09:30:00 2021-09-27 09:30:00 Outpatient DANIA RICARDO [facility] [id number] [facility] 2021-09-27 09:30:00 2021-09-27 09:30:00 Outpatient DANIA RICARDO [facility] [id number] [facility] 2021-09-27 09:30:00 2021-09-27 09:30:00 Outpatient DANIA RICARDO [facility] [id number] [facility] 2021-09-26 10:45:00 2021-09-26 10:45:00 Outpatient CRICKET FRYE [facility] [id number] [facility] 2021-09-26 10:45:00 2021-09-26 10:45:00 Outpatient R CRICKET TAYLOR [facility] [id number] [facility] 2021-09-26 00:00:00 2021-09-26 00:00:00 Patient Secure Msg Ca Martinez [facility]YA?[facility] MEDICAL OFFICE BUILDING 1.2.840.114 350.1.13.10 4.2.7.2.686 [id number] [facility] 2021-09-26 00:00:00 2021-09-26 00:00:00 Patient Secure Msg Ca Martinez [facility] T[facility] MEDICAL OFFICE BUILDING 1.2.840.114 350.1.13.10 4.2.7.2.686 [id number] [facility] 2021-09-25 10:20:00 2021-09-25 11:10:42 Urgent Care Flaco Boyd [facility] MEDICAL OFFICE BUILDING 1..840.114 350.1.13.10 4.2.7.2.686 [id number] [facility] 2021-09-25 10:20:00 2021-09-25 11:10:42 Outpatient R FLACO BOYD [facility] [id number] [facility] 2021-09-25 10:20:00 2021-09-25 10:20:00 Outpatient R FLACO BOYD [facility] [id number] [facility] 2021-09-25 10:00:00 2021-09-25 10:00:00 Outpatient R PRASANNA VARGAS [facility] [id number] [facility] 2021-09-25 00:00:00 2021-09-25 00:00:00 [facility]phone [facility] MEDICAL OFFICE BUILDING 1.2.840.114 350.1.13.10 4.2.7.2.686 [id number] [facility] 2021-09-25 00:00:00 2021-09-25 00:00:00 Patient Secure Msg Prasanna Vargas [facility] NAL BUILDING 1.2840.114 350.1.13.10 4.2.7.2.686 [id number] [facility] 2021-09-25 00:00:00 2021-09-25 00:00:00 Telephone Cricket Taylor [facility] INSPECTOR [facility] 1.2840.114 350.1.13.10 4.2.7.2.686 [id number] [facility] 2021-09-25 00:00:00 2021-09-25 00:00:00 Telephone Desiree Mohr [facility] [place] 1.2840.114 350.1.13.10 4.2.7.2.686 [id number] [facility] 2021-09-15 00:00:00 2021-09-15 00:00:00 Patient Secure Msg Kendal Zamudio [facility] MEDICAL OFFICE BUILDING 1.2840.114 350.1.13.10 4.2.7.2.686 [id number] [facility] 2021-09-15 00:00:00 2021-09-15 00:00:00 Patient Secure Msg Kendal Zamudio [facility] MEDICAL OFFICE BUILDING 1.2840.114 350.1.13.10 4.2.7.2.686 [id number] [facility] 2021-09-15 00:00:00 2021-09-15 00:00:00 Patient Secure Msg Kendal Zamudio [facility] MEDICAL OFFICE BUILDING 1.2840.114 350.1.13.10 4.2.7.2.686 [id number] [facility] 2021-09-14 00:00:00 2021-09-14 00:00:00 Patient Secure Msg Ca Martinez [facility] [place] MEDICAL OFFICE BUILDING 1.0.114 350.1.13.10 4.2.7.2.686 [id number] [facility] 2021-09-14 00:00:00 2021-09-14 00:00:00 Patient Secure Msg Doctor Unassigned, [place] [facility] MEDICAL OFFICE BUILDING 1.0.114 350.1.13.10 4.2.7.2.686 [id number] [facility] 2021-09-12 10:30:00 2021-09-12 10:30:00 Outpatient [facility] [facility] [id number] [facility] 2021-09-12 10:30:00 2021-09-12 10:30:00 Outpatient DESIREE STONE [facility] [id number] [facility] 2021-09-12 00:00:00 2021-09-12 00:00:00 Patient Secure Msg Taj Dsouza [facility] 1..114 350.1.13.10 4.2.7.2.686 [id number] [facility] 2021-09-12 00:00:00 2021-09-12 00:00:00 Orders Only Doctor Unassigned, [place] [facility] 1.0.114 350.1.13.10 4.2.7.2.686 [id number] [facility] 2021-09-12 00:00:00 2021-09-12 00:00:00 Patient Secure Msg Ca Martinez [facility] MEDICAL OFFICE BUILDING 1.0.114 350.1.13.10 4.2.7.2.686 [id number] 044 [id number] [facility] 2021-09-05 00:00:00 2021-09-05 00:00:00 Patient Secure Msg Ca Martinez [facility] MEDICAL OFFICE BUILDING 1.2840.114 350.1.13.10 4.2.7.2.686 [id number] 044 [id number] [facility] 2021-09-05 00:00:00 2021-09-05 00:00:00 Patient Secure Msg Doctor Unassigned, [place] [facility] 1.2840.114 350.1.13.10 4.2.7.2.686 [id number] [facility] 2021-09-05 00:00:00 2021-09-05 00:00:00 Patient Secure Msg Doctor Unassigned, [place] [facility] 1.2840.114 350.1.13.10 4.2.7.2.686 [id number] 019 [id number] [facility] 2021-09-04 00:00:00 2021-09-04 00:00:00 Patient Secure Msg Ca Martinez [facility] 1.0.114 350.1.13.10 4.2.7.2.686 [id number] 044 [id number] [facility] 2021-08-28 00:00:00 2021-08-28 00:00:00 Patient Secure Msg Harsh Charlse [facility] 1.0.114 350.1.13.10 4.2.7.2.686 [id number] [facility] 2021-08-25 00:00:00 2021-08-25 00:00:00 Telephone Dania Pennington [facility] 1.2840.114 350.1.13.10 4.2.7.2.686 [id number] [facility] 2021-08-25 00:00:00 2021-08-25 00:00:00 Patient Secure Msg Ca Martinez [facility] 1.2.840.114 350.1.13.10 4.2.7.2.686 [id number] 044 [id number] [facility] 2021-08-24 00:00:00 2021-08-24 00:00:00 Telephone Ca Martinez [facility] MED[facility] OFF[facility] BUILDING 1.2840.114 350.1.13.10 4.2.7.2.686 [id number] 044 [id number] [facility] 2021-08-24 00:00:00 2021-08-24 00:00:00 Patient Secure Msg Ca Martinez [facility] MED[facility] OFF[facility] BUILDING 1.2840.114 350.1.13.10 4.2.7.2.686 [id number] 044 [id number] [facility] 2021-08-23 00:00:00 2021-08-23 00:00:00 Patient Secure Msg Ca Martinez [facility] 1.2840.114 350.1.13.10 4.2.7.2.686 [id number] 044 [id number] [facility] 2021-08-23 00:00:00 2021-08-23 00:00:00 Telephone Ca Martinez [facility] 1.2840.114 350.1.13.10 4.2.7.2.686 [id number] 044 [id number] [facility] 2021-08-22 00:00:00 2021-08-22 00:00:00 Telephone Ca Martinez [facility] 1.2840.114 350.1.13.10 4.2.7.2.686 [id number] 044 [id number] [facility] 2021-08-22 00:00:00 2021-08-22 00:00:00 Patient Secure Msg Hallie Wilkinson [facility] MEDICAL OFFICE BUILDING 1.20.114 350.1.13.10 4.2.7.2.686 [id number] 044 [id number] [facility] 2021-08-18 00:00:00 2021-08-18 00:00:00 Telephone Ca Martinez [facility] MEDICAL OFF[facility] BUILD[facility] 1.84.114 350.1.13.10 4.2.7.2.686 [id number] 044 [id number] [facility] 2021-08-17 09:00:00 2021-08-17 09:00:00 Outpatient DESIREE STONE [facility] [id number] [facility] 2021-08-17 09:00:00 2021-08-17 09:00:00 Outpatient DESIREE STONE [facility] [id number] [facility] 2021-08-17 00:00:00 2021-08-17 00:00:00 Patient Secure Msg Prasanna Vargas [facility] 1.84.114 350.1.13.10 4.2.7.2.686 [id number] [facility] 2021-08-17 00:00:00 2021-08-17 00:00:00 Patient Secure Msg Ca Martinez [facility] MEDICAL OFFICE BUILDING 1.84.114 350.1.13.10 4.2.7.2.686 [id number] 044 [id number] [facility] 2021-08-17 00:00:00 2021-08-17 00:00:00 Patient Secure Msg Ca Martinez [facility] MEDICAL OFFICE BUILDING 1..114 350.1.13.10 4.2.7.2.686 [id number] 044 [id number] [facility] 2021-08-16 00:00:00 2021-08-16 00:00:00 Patient Secure Msg Ca Martinez [facility] MED[facility] OFF[facility] BUILDING 1.2.840.114 350.1.13.10 4.2.7.2.686 [id number] 044 [id number] [facility] 2021-08-16 00:00:00 2021-08-16 00:00:00 Patient Secure Msg Doctor Unassigned, [place] [facility] MEDICAL OFFICE BUILDING 1.284.114 350.1.13.10 4.2.7.2.686 [id number] 044 [id number] [facility] 2021-08-16 00:00:00 2021-08-16 00:00:00 Patient Secure Msg Ca Martinez [facility] MEDICAL OFFICE BUILDING 1.2.840.114 350.1.13.10 4.2.7.2.686 [id number] 044 [id number] [facility] 2021-08-16 00:00:00 2021-08-16 00:00:00 Patient Secure Msg Ca Martinez [facility] MEDICAL OFFICE BUILDING 1.2840.114 350.1.13.10 4.2.7.2.686 [id number] 044 [id number] [facility] 2021-08-15 15:30:00 2021-08-15 16:16:42 Office Visit Adán Kim [facility] MEDICAL OFFICE BUILDING 1.284.114 350.1.13.10 4.2.7.2.686 [id number] [facility] 2021-08-15 15:30:00 2021-08-15 16:16:42 Outpatient R ADÁN KIM [facility] [id number] [facility] 2021-08-15 15:30:00 2021-08-15 15:30:00 Outpatient Farzana ADÁN KIM [facility] [id number] [facility] 2021-08-15 15:30:00 2021-08-15 15:30:00 Outpatient ADÁN DIEGO [facility] [id number] [facility] 2021-08-15 15:30:00 2021-08-15 15:30:00 Outpatient ADÁN DIEGO [facility] [id number] [facility] 2021-08-15 09:27:00 2021-08-15 12:26:00 Emergency [facility] ERT [id number] [facility] 2021-08-15 09:27:00 2021-08-15 12:26:00 Emergency Maura Cox [facility] 1..840.114 350.1.13.10 4.2.7.2.686 [id number] [facility] 2021-08-15 09:27:00 2021-08-15 12:26:00 Emergency [facility] ERT [id number] [facility] 2021-08-15 00:00:00 2021-08-15 00:00:00 Patient Secure Msg Doctor Unassigned, [place] [facility] 1..840.114 350.1.13.10 4.2.7.2.686 [id number] [facility] 2021-08-14 13:25:00 2021-08-14 23:59:00 Outpatient CA ARAUZ [facility] [id number] [facility] 2021-08-14 13:25:00 2021-08-14 23:59:00 Outpatient CA ARAUZ [facility] [id number] [facility] 2021-08-14 13:25:00 2021-08-14 13:25:00 Outpatient CA ARAUZ [facility] [id number] [facility] 2021-08-14 12:19:07 2021-08-14 13:24:00 Outpatient R CA MARTINEZ [facility] [id number] [facility] 2021-08-14 12:19:07 2021-08-14 13:24:00 Outpatient R CA MARTINEZ [facility] [id number] [facility] 2021-08-14 12:30:00 2021-08-14 13:01:24 Assistant Statistician Visit Lab, Filippo Shirley [facility]hel[facility] MEDICAL OFFICE BUILDING 1.840.114 350.1.13.10 4.2.7.2.686 [id number] [facility] 2021-08-14 12:30:00 2021-08-14 12:45:00 Assistant Statistician Visit Lab, Filippo Shirley Richelle MartinezGood [facility] HospitalROBERTA [facility] MEDICAL OFFICE BUILDING 1.2840.114 350.1.13.10 4.2.7.2.686 [id number] [facility] 2021-08-14 11:30:00 2021-08-14 12:31:12 Office Visit Ca Martinez [facility]?LINO [facility] MEDICAL OFFICE BUILDING 1.2.840.114 350.1.13.10 4.2.7.2.686 [id number] 044 [id number] [facility] 2021-08-14 11:30:00 2021-08-14 12:31:12 Outpatient R CA MARTINEZ [facility] [id number] [facility] 2021-08-14 00:00:00 2021-08-14 00:00:00 Patient Secure Msg Richelle [facility]Good [facility] HospitalROBERTA [facility] MEDICAL OFFICE BUILDING 1.2.840.114 350.1.13.10 4.2.7.2.686 [id number] 044 [id number] [facility] 2021-08-14 00:00:00 2021-08-14 00:00:00 Patient Secure Msg Ca Martinez [facility] 1..840.114 350.1.13.10 4.2.7.2.686 [id number] [id number] [facility] 2021-08-09 14:45:00 2021-08-09 14:45:00 Outpatient R ADÁN KIM [facility] [id number] [facility] 2021-08-09 00:00:00 2021-08-09 00:00:00 Telephone Ca Martinez [facility] MEDICAL OFFICE BUILDING 1..840.114 350.1.13.10 4.2.7.2.686 [id number] [facility] 2021-08-08 11:30:00 2021-08-08 23:59:00 Outpatient R JUANRICHELLEIE [facility] [id number] [facility] 2021-08-08 11:30:00 2021-08-08 23:59:00 Hospital Encounter Ca Martinez [facility] MEDICAL OFFICE BUILDING 1..840.114 350.1.13.10 4.2.7.2.686 [id number] [facility] 2021-08-08 11:15:00 2021-08-08 11:15:00 Outpatient R JUAN CA [facility] [id number] [facility] 2021-08-08 11:00:00 2021-08-08 11:00:00 Outpatient R JUAN CA [facility] [id number] [facility] 2021-08-08 00:00:00 2021-08-08 00:00:00 Patient Secure Msg Doctor Unassigned, [place] [facility] 1..840.114 350.1.13.10 4.2.7.2.686 [id number] [facility] 2021-08-07 09:30:00 2021-08-07 10:23:21 Office Visit Ca Martinez [facility] 1.2.840.114 350.1.13.10 4.2.7.2.686 [id number] [facility] 2021-08-07 09:30:00 2021-08-07 10:23:21 Outpatient R CA MARTINEZ [facility] [id number] [facility] 2021-08-07 09:30:00 2021-08-07 09:30:00 Outpatient R CA MARTINEZ [facility] [id number] [facility] 2021-08-07 00:00:00 2021-08-07 00:00:00 Patient Secure Msg Ca Martinez [facility] MEDICAL OFFICE BUILDING 1.2.840.114 350.1.13.10 4.2.7.2.686 [id number] 044 [id number] [facility] 2021-08-07 00:00:00 2021-08-07 00:00:00 Patient Secure Msg Ca Martinez [facility] MEDICAL OFFICE BUILDING 1.2.840.114 350.1.13.10 4.2.7.2.686 [id number] [facility] 2021-08-07 00:00:00 2021-08-07 00:00:00 Patient Secure Msg Yin Mohrlara Cannon [facility] 1.2.840.114 350.1.13.10 4.2.7.2.686 [id number] [facility] 2021-08-04 10:00:00 2021-08-04 10:00:00 Outpatient R PETRA RENO [facility] [id number] [facility] 2021-08-04 00:00:00 2021-08-04 00:00:00 Patient Secure Msg Ca Martinez [facility] 1.2.840.114 350.1.13.10 4.2.7.2.686 [id number] [id number] [facility] 2021-08-03 11:00:00 2021-08-03 12:48:43 [facility] 1.2.840.114 350.1.13.10 4.2.7.2.686 [id number] [facility] 2021-08-03 11:00:00 2021-08-03 12:48:43 Outpatient JUAN YANG [facility] [id number] [facility] 2021-08-03 11:00:00 2021-08-03 11:00:00 Outpatient Farzana DIAZ JUAN [facility] [id number] [facility] 2021-08-03 00:00:00 2021-08-03 00:00:00 Patient Secure Msg Desiree Mohr [facility] 1..840.114 350.1.13.10 4.2.7.2.686 [id number] [facility] 2021-08-02 00:00:00 2021-08-02 00:00:00 Telephone Ca Martinez [facility] 1.2.840.114 350.1.13.10 4.2.7.2.686 [id number] [facility] 2021-07-21 08:00:00 2021-07-21 08:52:53 Outpatient DARRION QUIROZ HOWARD [facility] [id number] [facility] 2021-07-17 11:30:00 2021-07-17 11:30:00 Outpatient CA ARAUZ [facility] [id number] [facility] 2021-07-17 00:00:00 2021-07-17 00:00:00 Patient Secure Msg Ca Martinez [facility] MEDICAL OFFICE BUILDING 1..840.114 350.1.13.10 4.2.7.2.686 [id number] 044 [id number] [facility] 2021-06-19 00:00:00 2021-06-19 00:00:00 Telephone Ca Martinez [facility] MEDICAL OFF[facility] BUILDING 1..840.114 350.1.13.10 4.2.7.2.686 [id number] [id number] [facility] 2021-06-09 00:00:00 2021-06-09 00:00:00 Telephone [facility] 1..840.114 350.1.13.10 4.2.7.2.686 [id number] [facility] 2021-06-06 11:15:00 2021-06-06 11:15:00 Outpatient R DEYVI [facility] [id number] [facility] 2021-06-06 11:15:00 2021-06-06 11:15:00 Outpatient R DEYVI [facility] [id number] [facility] 2021-06-02 15:45:00 2021-06-02 15:45:00 Outpatient R CLAUDETTE EVANS [facility] [id number] [facility] 2021-05-31 10:00:00 2021-05-31 10:46:31 Outpatient R JAMAALCA Cannon [facility] [id number] [facility] 2021-05-31 10:00:00 2021-05-31 10:46:31 Office Visit Ca Martinez [facility] MEDICAL OFFICE BUILDING 1..840.114 350.1.13.10 4.2.7.2.686 [id number] [facility] 2021-05-31 10:00:00 2021-05-31 10:46:31 Outpatient R CA MARTINEZ [facility] [id number] [facility] 2021-05-31 00:00:00 2021-05-31 00:00:00 Orders Only Doctor Unassigned, [place] [facility] 1.2.840.114 350.1.13.10 4.2.7.2.686 [id number] [facility] 2021-05-26 00:00:00 2021-05-26 00:00:00 Telephone [facility] OFF[facility] BUILD[facility] 1.2.840.114 350.1.13.10 4.2.7.2.686 [id number] [facility] 2021-05-26 00:00:00 2021-05-26 00:00:00 Patient Secure Msg [facility] 1.2.840.114 350.1.13.10 4.2.7.2.686 [id number] [facility] 2021-05-25 14:00:00 2021-05-25 14:30:00 Telemedici ne Visit Skylar Groves [facility] MED[facility] OFF[facility] BUILD[facility] 1.2.840.114 350.1.13.10 4.2.7.2.686 [id number] 044 [id number] [facility] 2021-05-25 14:00:00 2021-05-25 14:00:00 Outpatient R SKYLAR GROVES [facility] [id number] [facility] 2021-05-25 14:00:00 2021-05-25 14:00:00 Outpatient R SKYLAR GROVES [facility] [id number] [facility] 2021-05-25 00:00:00 2021-05-25 00:00:00 Patient Secure Msg Skylar Groves [facility] MEDICAL OFFICE BUILDING 1.2.840.114 350.1.13.10 4.2.7.2.686 [id number] [facility] 2021-05-25 00:00:00 2021-05-25 00:00:00 Patient Secure Msg Skylar Groves [facility] MEDICAL OFFICE BUILDING 1.2.840.114 350.1.13.10 4.2.7.2.686 [id number] 044 [id number] [facility] 2021-05-24 00:00:00 2021-05-24 00:00:00 Telephone Rad Serra [facility] NAL BUILDING 1.2.840.114 350.1.13.10 4.2.7.2.686 [id number] [id number] [facility] 2021-05-24 00:00:00 2021-05-24 00:00:00 Patient Secure Msg Rad SerraHPilar [facility] BUILDING 1.2.840.114 350.1.13.10 4.2.7.2.686 [id number] [facility] 2021-05-24 00:00:00 2021-05-24 00:00:00 Patient Secure Msg Claudette Evans A [facility] MEDICAL OFFICE BUILDING 1.2.840.114 350.1.13.10 4.2.7.2.686 [id number] [id number] [facility] 2021-05-23 10:00:00 2021-05-23 10:00:00 Outpatient R [facility] [id number] [facility] 2021-05-23 10:00:00 2021-05-23 10:00:00 Outpatient R [facility] [id number] [facility] 2021-05-23 00:00:00 2021-05-23 00:00:00 Patient Secure Carmelina Hindsrico Cannon [facility] 1..840.114 350.1.13.10 4.2.7.2.686 [id number] [facility] 2021-05-16 09:00:00 2021-05-16 09:00:00 Outpatient TETO BRANTLEY [facility] [id number] [facility] 2021-05-12 00:00:00 2021-05-12 00:00:00 Orders Only Doctor Unassigned, [place] [facility] 1..840.114 350.1.13.10 4.2.7.2.686 [id number] [facility] 2021-05-10 13:00:00 2021-05-10 13:00:00 Outpatient [facility] [id number] [facility] 2021-05-10 13:00:00 2021-05-10 13:00:00 Outpatient Farzana CARMELINA EVANSANITRA [facility] [id number] [facility] 2021-05-09 00:00:00 2021-05-09 00:00:00 Telephone Prasanna Vargas [facility] BUILDING 1..840.114 350.1.13.10 4.2.7.2.686 [id number] [facility] 2021-05-09 00:00:00 2021-05-09 00:00:00 Patient Secure Rad Serra [facility] BUILDING 1..840.114 350.1.13.10 4.2.7.2.686 [id number] [facility] 2021-05-08 16:00:00 2021-05-08 16:00:00 Outpatient JE CRABTREE [facility] [id number] [facility] 2021-05-08 16:00:00 2021-05-08 16:00:00 Outpatient JE CRABTREE [facility] [id number] [facility] 2021-05-08 00:00:00 2021-05-08 00:00:00 Patient Secure Msg Rad Serra.. [facility] BUILDING 1.2.840.114 350.1.13.10 4.2.7.2.686 [id number] [id number] [facility] 2021-05-08 00:00:00 2021-05-08 00:00:00 Patient Secure Msg Rad Serra.Pliar [facility] BUILDING 1.2.840.114 350.1.13.10 4.2.7.2.686 [id number] 059 [id number] [facility] 2021-05-04 00:00:00 2021-05-04 00:00:00 Patient Secure Msg Rad Serra.Pilar [facility] BUILDING 1.2.840.114 350.1.13.10 4.2.7.2.686 [id number] [facility] 2021-05-04 00:00:00 2021-05-04 00:00:00 [facility] 1.2.840.114 350.1.13.10 4.2.7.2.686 [id number] [facility] 2021-05-03 11:15:36 2021-05-03 23:59:00 [facility] [id number] [facility] 2021-05-03 11:15:36 2021-05-03 23:59:00 [facility] 1.2.840.114 350.1.13.10 4.2.7.2.686 [id number] [facility] 2021-05-03 00:00:00 2021-05-03 00:00:00 Telephone Claudette Evans [facility] MEDICAL OFFICE BUILDING 1.2.840.114 350.1.13.10 4.2.7.2.686 [id number] [facility] 2021-05-02 00:00:00 2021-05-02 00:00:00 Telephone Rad Serra [facility] BUILDING 1.2.840.114 350.1.13.10 4.2.7.2.686 [id number] [facility] 2021-05-02 00:00:00 2021-05-02 00:00:00 Patient Secure Msg Claudette Evans [facility] ALIC[facility] BABIN?[facility] OFFICE BUILDING 1.2.840.114 350.1.13.10 4.2.7.2.686 [id number] [facility] 2021-05-02 00:00:00 2021-05-02 00:00:00 Telephone Claudette Evans [facility] TLAYA?[facility] MEDICAL OFFICE BUILDING 1.2.840.114 350.1.13.10 4.2.7.2.686 [id number] [facility] 2021-05-02 00:00:00 2021-05-02 00:00:00 Patient Secure Msg Rad SerraH. [facility] BUILDING 1.2.840.114 350.1.13.10 4.2.7.2.686 [id number] [facility] 2021-05-02 00:00:00 2021-05-02 00:00:00 Patient Secure Msg Carmelina Evansdiful A [facility] TALYA?[facility] [place] BUILDING 1.114 350.1.13.10 4.2.7.2.686 [id number] [facility] 2021-04-28 00:00:00 2021-04-28 00:00:00 Patient Secure Claudette Hinds [facility] TALYA?[facility] BU[facility] 1.114 350.1.13.10 4.2.7.2.686 [id number] [facility] 2021-04-27 14:24:00 2021-04-27 15:49:00 Emergency X [facility] ERT [id number] [facility] 2021-04-27 14:24:00 2021-04-27 15:49:00 Emergency Maggie Hamilton [facility] 1.114 350.1.13.10 4.2.7.2.686 [id number] [facility] 2021-04-27 11:15:00 2021-04-27 11:30:00 Laboratory Only Only, Ang Db Test Unknown, Attending Thony Johnson [facility] BUILDING 1.84114 350.1.13.10 4.2.7.2.686 [id number] [facility] 2021-04-27 11:15:00 2021-04-27 11:15:00 Outpatient R THONY JOHNSON [facility] [id number] [facility] 2021-04-27 00:00:00 2021-04-27 00:00:00 Orders Only Doctor Unassigned, [place] [facility] 1.114 350.1.13.10 4.2.7.2.686 [id number] [facility] 2021-04-20 15:00:00 2021-04-20 15:00:00 Outpatient R SCOTT GILBERT [facility] [id number] [facility] 2021-04-13 00:00:00 2021-04-13 00:00:00 Patient Secure Msg Claudette Evans [facility] TALYA?[facility] MEDICAL OFFICE BUILDING 1.2.840.114 350.1.13.10 4.2.7.2.686 [id number] [facility] 2021-04-12 00:00:00 2021-04-12 00:00:00 Telephone Claudette Evans [facility] TALYA?[facility] OFFICE BUILDING 1.2.840.114 350.1.13.10 4.2.7.2.686 [id number] 044 [id number] [facility] 2021-03-27 00:00:00 2021-03-27 00:00:00 Telephone Khang Prasanna Jm [facility] BUILDING 1.2.840.114 350.1.13.10 4.2.7.2.686 [id number] [facility] 2021-03-24 00:00:00 2021-03-24 00:00:00 Patient Secure Msg Doctor Unassigned, [place] [facility] 1.840.114 350.1.13.10 4.2.7.2.686 [id number] [facility] 2021-03-23 13:30:00 2021-03-23 13:30:00 Outpatient R PINO HOFF [facility] [id number] [facility] 2021-03-23 13:30:00 2021-03-23 13:30:00 Outpatient R PINO HOFF [facility] [id number] [facility] 2021-03-22 09:20:00 2021-03-22 09:20:00 Outpatient R ADITYA MEEKS STRAHIL [facility] [id number] [facility] 2021-03-22 09:20:00 2021-03-22 09:20:00 Outpatient R ADITYA MEEKS ANN-MARIENEHEMIAH BRAGAKSEz [facility] [id number] [facility] 2021-03-20 00:00:00 2021-03-20 00:00:00 Outpatient R CLAUDETTE EVANS [facility] [id number] [facility] 2021-03-18 00:00:00 2021-03-18 00:00:00 Case Management Claud[facility] MEDICAL OFFICE BUILDING 1.2.840.114 350.1.13.10 4.2.7.2.686 [id number] 044 [id number] [facility] 2021-03-16 11:16:07 2021-03-16 11:31:07 Assistant Statistician Visit Lab, Filippo - Casper MichelCorte MaderaClaudette ibrahim [facility] MEDICAL OFFICE BUILDING 1.2.840.114 350.1.13.10 4.2.7.2.686 [id number] [facility] 2021-03-16 11:30:00 2021-03-16 11:30:00 Outpatient R CLAUDETTE EVANS [facility] [id number] [facility] 2021-03-16 11:00:00 2021-03-16 11:14:45 Outpatient R CLAUDETTE EVANS [facility] [id number] [facility] 2021-03-16 10:00:58 2021-03-16 11:14:45 Office Visit Claud[facility] MEDICAL OFFICE BUILDING 1.2.840.114 350.1.13.10 4.2.7.2.686 [id number] [facility] 2021-03-16 00:00:00 2021-03-16 00:00:00 Patient Secure Msg Claudette Evans [facility] MEDICAL OFFICE BUILDING 1.2840.114 350.1.13.10 4.2.7.2.686 [id number] [facility] 2021-03-02 16:15:00 2021-03-02 16:15:00 Outpatient R CLAUDETTE EVANS [facility] [id number] [facility] 2021-02-28 18:30:00 2021-02-28 18:30:00 Outpatient R WILLIE MEDRANO [facility] [id number] [facility] 2021-02-28 00:00:00 2021-02-28 00:00:00 Telephone Claudette Evans [facility] Talya[facility] Medical [facility] Building 1.2840.114 350.1.13.10 4.2.7.2.686 [id number] [facility] 2021-02-27 09:00:00 2021-02-27 09:00:00 Outpatient R AMELIA HAMMOND [facility] [id number] [facility] 2021-02-23 00:00:00 2021-02-23 00:00:00 Telephone Claudette Evans [facility] Talya?[facility] Medical Office Building 1.2840.114 350.1.13.10 4.2.7.2.686 [id number] [id number] [facility] 2021-02-10 18:12:00 2021-02-10 23:39:00 Emergency DevKaycee herrera [facility] 1.2.840.114 350.1.13.10 4.2.7.2.686 [id number] [facility] 2021-02-10 00:00:00 2021-02-10 00:00:00 Patient Secure Msg Claudette Evans [facility] AL[facility]ABIN?[facility] MEDICAL OFFICE BUILDING 1.2.840.114 350.1.13.10 4.2.7.2.686 [id number] 044 [id number] [facility] 2021-02-10 00:00:00 2021-02-10 00:00:00 Patient Secure MsClaudette Corea [facility] BABIN?[facility] MEDICAL OFFICE BUILDING 1.2.840.114 350.1.13.10 4.2.7.2.686 [id number] [facility] 2021-02-10 00:00:00 2021-02-10 00:00:00 Patient Secure g Claudette Evans [facility] BABIN?[facility] MEDICAL OFFICE BUILDING 1.2.840.114 350.1.13.10 4.2.7.2.686 [id number] [id number] [facility] 2021-02-10 00:00:00 2021-02-10 00:00:00 Patient Secure Claudette Hinds [facility] BABIN?[facility] MEDICAL OFFICE BUILDING 1.2840.114 350.1.13.10 4.2.7.2.686 [id number] 044 [id number] [facility] 2021-02-09 13:40:00 2021-02-09 23:59:00 Hospital Encounter Claudette Evans [facility] Maurice Babin?[facility] Medical Office Building 1.2.840.114 350.1.13.10 4.2.7.2.686 [id number] [facility] 2021-02-09 13:49:05 2021-02-09 14:04:05 Assistant Statistician Visit Lab, Filippo Shirley Claudette Evans [facility] Medical Office Building 1.2.840.114 350.1.13.10 4.2.7.2.686 [id number] [facility] 2021-02-09 12:23:13 2021-02-09 13:47:12 Office Visit [facility] Medical Office Building 1.2.840.114 350.1.13.10 4.2.7.2.686 [id number] [id number] [facility] 2021-02-09 13:00:00 2021-02-09 13:00:00 Outpatient R CARMELINA EVANSRICO [facility] [id number] [facility] 2021-02-09 00:00:00 2021-02-09 00:00:00 Patient Secure Msg Doctor Unassigned, [place] [facility] 1..840.114 350.1.13.10 4.2.7.2.686 [id number] [facility] 2021-02-08 10:20:00 2021-02-08 10:20:00 Outpatient R ADITYA MEEKS STRAHIL [facility] [id number] [facility] 2021-02-07 00:00:00 2021-02-07 00:00:00 Patient Secure Msg Claudette Evans [facility] ALIC[facility] BABIN?[facility] MEDICAL OFFICE BUILDING 1.2.840.114 350.1.13.10 4.2.7.2.686 [id number] [facility] 2021-02-02 10:30:00 2021-02-02 10:30:00 Outpatient SKYLAR CEBALLOS [facility] [id number] [facility] 2021-02-02 00:00:00 2021-02-02 00:00:00 Telephone [facility] Medical Office Building 1.2.840.114 350.1.13.10 4.2.7.2.686 [id number] [id number] [facility] 2021-02-01 08:30:00 2021-02-01 08:30:00 Outpatient NOE CEBALLOSE [facility] [id number] [facility] 2021-01-31 18:44:04 2021-01-31 19:41:26 Urgent Care Flaco Boyd [facility] Talya?[facility] Medical Office Building 1.84.114 350.1.13.10 4.2.7.2.686 [id number] [facility] 2021-01-31 19:00:00 2021-01-31 19:00:00 Outpatient R FLACO BOYD [facility] [id number] [facility] 2021-01-31 00:00:00 2021-01-31 00:00:00 Telephone CristinaClaudette [facility] Talya?Lino [facility] Medical Office Building 1.84.114 350.1.13.10 4.2.7.2.686 [id number] [facility] 2021-01-31 00:00:00 2021-01-31 00:00:00 Patient Secure Claudette Hinds [facility] TALYA?[facility] MEDICAL OFFICE BUILDING 1..114 350.1.13.10 4.2.7.2.686 [id number] 044 [id number] [facility] 2021-01-30 00:00:00 2021-01-30 00:00:00 Telephone Rad Serra [facility] Edna [facility] nal Building 1.84.114 350.1.13.10 4.2.7.2.686 [id number] [id number] [facility] 2021-01-30 00:00:00 2021-01-30 00:00:00 Patient Secure Claudette Hinds [facility] OFFICE BUILDING ONE 1.84.114 350.1.13.10 4.2.7.2.686 [id number] [facility] 2021-01-26 14:00:00 2021-01-26 14:00:00 Outpatient R RAD SERRA [facility] [id number] [facility] 2021-01-26 00:00:00 2021-01-26 00:00:00 Patient Secure Skylar Wu [facility] ALIC[facility] BABIN?[facility] MEDICAL OFFICE BUILDING 1.2.840.114 350.1.13.10 4.2.7.2.686 [id number] 044 [id number] [facility] 2021-01-25 15:00:00 2021-01-25 15:00:00 Outpatient R [facility] [id number] [facility] 2021-01-21 00:00:00 2021-01-21 00:00:00 Patient Secure Skylar Wu [facility] TALYA?[facility] MEDICAL OFFICE BUILDING 1..840.114 350.1.13.10 4.2.7.2.686 [id number] [id number] [facility] 2021-01-20 16:51:22 2021-01-20 17:12:41 Telemedici ne Visit Skylar Groves [facility] Babin?[facility] Medical Office Building 1.2.840.114 350.1.13.10 4.2.7.2.686 [id number] [facility] 2021-01-20 16:30:00 2021-01-20 16:30:00 Outpatient R SKYLAR GROVES [facility] [id number] [facility] 2021-01-19 10:15:00 2021-01-19 10:15:00 Outpatient R KAYLEY GARCÍA [facility] [id number] [facility] 2021-01-14 00:00:00 2021-01-14 00:00:00 Case Management Kassandra Benavides [facility] 1..840.114 350.1.13.10 4.2.7.2.686 [id number] [facility] 2021-01-14 00:00:00 2021-01-14 00:00:00 Patient Secure Msg Doctor Unassigned, [place] [facility] 1.2840.114 350.1.13.10 4.2.7.2.686 [id number] [facility] 2021-01-12 16:10:00 2021-01-12 19:45:00 Emergency Cassie Hany R [facility] 1.20.114 350.1.13.10 4.2.7.2.686 [id number] [facility] 2021-01-12 15:20:00 2021-01-12 15:20:00 Outpatient WILLIE CASE [facility] [id number] [facility] 2021-01-12 14:46:57 2021-01-12 15:06:57 Urgent Care Thony Johnson, [facility] Medical Office Building 1..114 350.1.13.10 4.2.7.2.686 [id number] [facility] 2020-12-26 15:30:00 2020-12-26 16:13:32 Outpatient R RAD SERRA [facility] [id number] [facility] 2020-12-26 15:30:00 2020-12-26 16:13:32 Office Visit Rad Serra [facility] BUILDING 1..114 350.1.13.10 4.2.7.2.686 [id number] [facility] 2020-12-26 15:00:32 2020-12-26 16:13:32 Office Visit Rad Serra [facility] Building 1.20.114 350.1.13.10 4.2.7.2.686 [id number] [facility] 2020-12-26 15:30:00 2020-12-26 15:30:00 Outpatient RAD MATAMOROS [facility] [id number] [facility] 2020-11-29 00:00:00 2020-11-29 00:00:00 Patient Secure Rad Serra [facility] BUILDING 1.840.114 350.1.13.10 4.2.7.2.686 [id number] [facility] 2020-11-22 11:00:00 2020-11-22 11:00:00 Outpatient DESIREE STONE [facility] [id number] [facility] 2020-11-10 18:42:46 2020-11-10 19:53:43 Urgent Care Milviakelsey Alissa [facility] Office Building One 1.84.114 350.1.13.10 4.2.7.2.686 [id number] 2020-11-10 19:00:00 2020-11-10 19:00:00 Outpatient R [facility] [id number] [facility] 2020-10-31 18:52:00 2020-10-31 22:15:00 Emergency Kaycee Méndez [facility] 1.84.114 350.1.13.10 4.2.7.2.686 [id number] 2020-10-31 19:00:00 2020-10-31 19:00:00 Outpatient R BEBA KAUR [facility] [id number] [facility] 2020-10-31 00:00:00 2020-10-31 00:00:00 Orders Only Doctor Unassigned, [place] [facility] 1.84.114 350.1.13.10 4.2.7.2.686 [id number] 2020-10-20 14:02:00 2020-10-20 17:13:00 Emergency Kaycee Méndez [facility] 1.2.840.114 350.1.13.10 4.2.7.2.686 [id number] 2020-10-18 00:00:00 2020-10-18 00:00:00 Patient Secure Msg Prasanna Vargas [facility] BUILDING 1.2.840.114 350.1.13.10 4.2.7.2.686 [id number] [facility] 2020-10-14 10:00:00 2020-10-14 23:59:00 Hospital Encounter Prasanna Vargas [facility] 1.2.840.114 350.1.13.10 4.2.7.2.686 [id number] 2020-10-14 13:30:00 2020-10-14 13:30:00 Outpatient DESIREE STONE [facility] [id number] [facility] 2020-10-11 00:00:00 2020-10-11 00:00:00 Patient Secure Msg Prasanna Vargas [facility] BUILDING 1.2840.114 350.1.13.10 4.2.7.2.686 [id number] [facility] 2020-10-11 00:00:00 2020-10-11 00:00:00 Patient Secure Msg Prasanna Vargas [facility] 1.2.840.114 350.1.13.10 4.2.7.2.686 [id number] [facility] 2020-10-09 12:00:00 2020-10-09 15:57:00 Emergency Lydia Kim [facility] 1.2.840.114 350.1.13.10 4.2.7.2.686 [id number] 2020-10-07 00:00:00 2020-10-07 00:00:00 Patient Secure Msg [facility]asanna [facility] 1.2.840.114 350.1.13.10 4.2.7.2.686 [id number] [facility] 2020-10-07 00:00:00 2020-10-07 00:00:00 Patient Secure Msg Prasanna [facility]arg[facility] N[facility] BUILDING 1.2.840.114 350.1.13.10 4.2.7.2.686 [id number] 134 [id number] [facility] 2020-10-07 00:00:00 2020-10-07 00:00:00 Patient Secure Msg Prasanna Vargas [facility] NAL BUILDING 1.2.840.114 350.1.13.10 4.2.7.2.686 [id number] 134 [id number] [facility] 2020-10-07 00:00:00 2020-10-07 00:00:00 Patient Secure Msg Prasanna Vargas [facility] NAL BUILDING 1.2.840.114 350.1.13.10 4.2.7.2.686 [id number] [facility] 2020-10-07 00:00:00 2020-10-07 00:00:00 Patient Secure Msg Prasanna Vargas [facility] NAL BUILDING 1.2840.114 350.1.13.10 4.2.7.2.686 [id number] [facility] 2020-10-07 00:00:00 2020-10-07 00:00:00 Patient Secure Msg Prasanna Vargas [facility] NAL BUILDING 1.2.840.114 350.1.13.10 4.2.7.2.686 [id number] 134 [id number] [facility] 2020-10-07 00:00:00 2020-10-07 00:00:00 Patient Secure Msg [facility] BU[facility] 1.2.840.114 350.1.13.10 4.2.7.2.686 [id number] [facility] 2020-10-06 08:53:00 2020-10-06 09:46:44 Office Visit Prasanna Vargas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 equivocal results, we recommend to retest the patient after 8 -12 weeks. Lab Interpretation (test code = 39306-4) Normal [facility] DistrictDeamidated Gliadin [id number] 19:08:56* Test Item Value Reference Range Interpretation Comme nts Deamidated Gliadin Peptide (DGP) Ab, IgG Interpretation (test code = 15403-6) Negative Negative Deamidated Gliadin Peptide (DGP) Ab, IgG (test code = 5978947644) <=7.0 WESLEY (test code = WESLEY) < 7 U/mL ? Negative7 - 10 U/mL ?Equivocal> 10 U/mL ?Positive In case of equivocal results, we recommend to retest the patient after 8 -12 weeks. Lab Interpretation (test code = 49782-3) Normal [facility] DistrictDeamidated Gliadin [id number] 19:08:55* Test Item Value Reference Range Interpretation Comme nts Deamidated Gliadin Peptide (DGP) Ab, IgA Interpretation (test code = 86329-6) Negative Negative Deamidated Gliadin Peptide (DGP) Ab, IgA (test code = 1525376259) 0.8 U/mL <=7.0 WESLEY (test code = WESLEY) < 7 U/mL ? Negative7 - 10 U/mL ?Equivocal> 10 U/mL ?Positive In case of equivocal results, we recommend to retest the patient after 8 -12 weeks. Lab Interpretation (test code = 80371-4) Normal [facility] DistrictDeamidated Gliadin [id number] 19:08:55* Test Item Value Reference Range Interpretation Comme nts Deamidated Gliadin Peptide (DGP) Ab, IgA Interpretation (test code = 67531-5) Negative Negative Deamidated Gliadin Peptide (DGP) Ab, IgA (test code = 7840052110) 0.8 U/mL <=7.0 WESLEY (test code = WESLEY) < 7 U/mL ? Negative7 - 10 U/mL ?Equivocal> 10 U/mL ?Positive In case of equivocal results, we recommend to retest the patient after 8 -12 weeks. Lab Interpretation (test code = 66047-6) Normal [facility] DistrictXR [id number] 21:07:52EXAM: XR KUB HISTORY: 29 years-old Female; Provided indication: Checking for bowelobstruction or con stipation . TECHNIQUE: Frontal view of the abdomen and pelvis COMPARISON: MR abdomen obtained on 02/25/2024[facility]XR [id number] 21:07:52EXAM: XR KUB HISTORY: 29 years-old Female; Provided indication: Checking for bowelobstruction or constipation . TECHNIQUE: Frontal view of the abdomen and pelvis COMPARISON: [facility] [id number] 21:07:42EXAM: MRI ABDOMEN with and without CONTRAST [...] cholecystectomy. There is a tiny focus of V7alzaskrxboefjy seen only on the T2 fat-suppressed axial [...] No lymphadenopathy. VESSELS:Unremarkable. BONES AND SOFT TISSUES: Unremarkable.[facility] ABDOMEN W WO CONTRAST [id number] 21:07:42EXAM: MRI ABDOMEN with and without CONTRAST [...] cholecystectomy. There is a tiny focus of [id number] seen only on the T2 fat-suppressed axial [...] No lymphadenopathy. VESSELS:Unremarkable. BONES AND SOFT TISSUES: Unremarkable.[facility] GLUCOSE (AUTOMATED) 2024-02-24 01:35:26* Test Item Value Reference Range Interpretation Comme nts POCT GLU (test code = 5329140333) 95 mg/dL 70-110 Lab Interpretation (test cod e = 95757-2) Normal [facility] GLUCOSE (AUTOMATED)2024-02-24 01:35:26* Test Item Value Reference Range Interpretation Comme nts POCT GLU (test code = 1381954827) 95 mg/dL 70-110 Lab Interpretation (test cod e = 09943-5) [facility] [id number] 21:28:55* Test Item Value Reference Range Interpretation Comme nts HCV Ab (test code = 56309-0) Negative HCV Semi-Quantitative (test code = 63587-1) 0.01 [facility] [id number] 21:28:55* Test Item Value Reference Range Interpretation Comme nts HCV Ab (test code = 35279-7) Negative HCV Semi-Quantitative (test code = 51891-1) 0.01 [facility] [id number] 18:59:19* Test Item Value Reference Range Interpretation Comme nts CRP (test code = 7550515743) 0.3 mg/dL <=0.8 Lab Interpretation (test cod e = 99073-7) [facility] [id number] 18:59:19* Test Item Value Reference Range Interpretation Comme nts CRP (test code = 6115753613) 0.3 mg/dL <=0.8 Lab Interpretation (test cod e = 06399-8) [facility] [id number] 16:37:53* Test Item Value Reference Range Interpretation Comme nts HBsAB (test code = 3977586842) Negative HBsAb Semi-Quantitative (test code = 5606193455) 0.00 mIU/mL WESLEY (test code = WESLEY) Interpretation: ?Hepatitis B Surface Antibody ? Negative - Patient is considered to be not immune to infection with HBV. ? ? Positive - Anti-HBs detected at greater than or equal to 12 mIU/mL. ?Patient is considered to be immune to infection with HBV. ? [facility] Ssqdjooe2720-14-53 16:37:53* Test Item Value Reference Range Interpretation Comme nts HBsAB (test code = 7984426259) Negative HBsAb Semi-Quantitative (test code = 9887897826) 0.00 mIU/mL WESLEY (test code = WESLEY) Interpretation: ?Hepatitis B Surface Antibody ? Negative - Patient is considered to be not immune to infection with HBV. ? ? Positive - Anti-HBs detected at greater than or equal to 12 mIU/mL. ?Patient is considered to be immune to infection with HBV. ? [facility] Ag-Ab with [id number] 16:37:47* Test Item Value Reference Range Interpretation Comme nts HIV Semi-quantitative (test code = 70169-6) 0.09 Negative WESLEY (test code = WESLEY) Non-reactive for HIV-1 antigen and HIV-1/HIV-2 antibodies. ?No laboratory evidence of HIV infection. ?Repeat in 2-4 weeks if acute HIV infection is suspected. [facility] Surface [id number] 16:37:47 * Test Item Value Reference Range Interpretation Comme nts HBsAg Semi-Quantitative (maeve t code = 5195-3) 0.12 [facility] with [id number] 16:37:47* Test Item Value Reference Range Interpretation Comme nts HIV Semi-quantitative (test code = 22414-0) 0.09 Negative WESLEY (test code = WESLEY) Non-reactive for HIV-1 antigen and HIV-1/HIV-2 antibodies. ?No laboratory evidence of HIV infection. ?Repeat in 2-4 weeks if acute HIV infection is suspected. [facility] B Surface [id number] 16:37:47 * Test Item Value Reference Range Interpretation Comme nts HBsAg Semi-Quantitative (maeve t code = 5195-3) 0.12 Negative [facility] (IgM & IgG)2024-02-23 16:37:42* Test Item Value Reference Range Interpretation Comme nts HBC (test code = 6393331278) Negative HBC Semi-Quantitative (test code = 1360599868) 3.51 [facility] (IgM & IgG)2024-02-23 16:37:42* Test Item Value Reference Range Interpretation Comme nts HBC (test code = 0392595880) Negative HBC Semi-Quantitative (test code = 8021031393) 3.51 [facility] [id number] 13:48:13* Test Item Value Reference Range Interpretation Comme nts ESR (test code = 18135-2) 23 2-30 Lab Interpretation (test cod e = 03853-0) Normal [facility] [id number] 13:48:13* Test Item Value Reference Range Interpretation Comme nts ESR (test code = 65933-8) 23 2-30 Lab Interpretation (test cod e = 77957-1) Normal [facility] District[facility] Function [facility] (52642) (ALB,T.PRO,BILI T,BU/BC,ALT,AST,ALK PHOS)2024-02-22 19:51:55* Test Item Value Reference Range Interpretation Comme nts TOTAL BILI (test code = 7116830794) 1.0 mg/dL 0.1-1.1 BILI UNCON (test code = 4321948420) 0.4 mg/dL 0.1-1.1 BILI CONJ (test code = 3681858042) 0.0 mg/dL 0.0-0.3 T PROTEIN (test code = 9629527868) 8.5 g/dL 6.3-8.2 H ALBUMIN (test code = 3994432806) 4.9 g/dL 3.5-5.0 ALK PHOS (test code = 2708803205) 87 U/L 34-122 Slight hemolysis ALTv (test code = 1742-6) 77 U/L 5-35 H AST(SGOT) (test code = 3704423251) 57 U/L 13-40 H Slight hemolysis Lab Interpretation (test code = 95282-0) Abnormal [facility] (03319) (ALB,T.PRO,BILI T,BU/BC,ALT,AST,ALK PHOS)2024-02-22 19:51:55* Test Item Value Reference Range Interpretation Comme nts TOTAL BILI (test code = 9208992311) 1.0 mg/dL 0.1-1.1 BILI UNCON (test code = 3072308356) 0.4 mg/dL 0.1-1.1 BILI CONJ (test code = 7932985587) 0.0 mg/dL 0.0-0.3 T PROTEIN (test code = 6531580878) 8.5 g/dL 6.3-8.2 H ALBUMIN (test code = 2302934961) 4.9 g/dL 3.5-5.0 ALK PHOS (test code = 7371014762) 87 U/L 34-122 Slight hemolysis ALTv (test code = 1742-6) 77 U/L 5-35 H AST(SGOT) (test code = 3763953157) 57 U/L 13-40 H Slight hemolysis Lab Interpretation (test code = 94075-7) Abnormal [facility] CHEST 2 [id number] 18:19:37ORDERING PROVIDER: ?COLIN ELMORE MORRICAL HISTORY: Hematemesis TECHNIQUE: Frontal and lateral views of the Chest. [facility] [id number] 18:19:37ORDERING PROVIDER: ?COLIN ELMORE MORRICAL HISTORY: Hematemesis TECHNIQUE: Frontal and lateral views of the Chest. [facility] [id number] 17:50:15ORDERING PROVIDER: COLIN MONGERICAL HISTORY: N/v/diarrhea worsening [...] lesions. ?There is normal corticalthickness, contour and echogenicity.[facility] ABDOMEN KELVDCM8191-95-17 17:50:15ORDERING PROVIDER: COLIN MONGERICAL HISTORY: N/v/diarrhea worsening [...] lesions. ?There is normal corticalthickness, contour and echogenicity.[facility] [id number] 15:52:12* Test Item Value Reference Range Interpretation Comme nts TROPONIN I (test code = 2721986953) 0.006 ng/mL <=0.034 WESLEY (test code = [...] of biotin. Lab Interpretation (test code = 23087-0) Normal [facility] [id number] 15:52:12* Test Item Value Reference Range Interpretation Comme nts TROPONIN I (test code = 8600731342) 0.006 ng/mL <=0.034 WESLEY (test code = [...] of biotin. Lab Interpretation (test code = 68460-6) Normal [facility] DistrictP[facility] TEST, [id number] 15:52:07* Test Item Value Reference Range Interpretation Comme nts PREG SERUM (test code = 5580683653) Negative WESLEY (test code = WESLEY) Less than 10 IU/L. ?If low titer or ectopic is suspected, resubmit specimen in 48-72 hours. [facility] TEST, [id number] 15:52:07* Test Item Value Reference Range Interpretation Comme nts PREG SERUM (test code = 4076024666) Negative WESLEY (test code = WESLEY) Less than 10 IU/L. ?If low titer or ectopic is suspected, resubmit specimen in 48-72 hours. [facility] DistrictL[facility]ASE2024-10-12 15:40:04* Test Item Value Reference Range Interpretation Comme [facility] LIPASE (test code = 8319745098) 69 U/L 0-220 Lab Interpretation (test cod e = 58752-5) Normal [facility]2024-10-12 15:40:04* Test Item Value Reference Range Interpretation Comme nts LIPASE (test code = 4092863944) 69 U/L 0-220 Lab Interpretation (test cod e = 68628-4) Normal [facility]. METABOLIC PANEL (76606)2024-02-22 15:40:03* Test Item Value Reference Range Interpretation Comme nts NA (test code = 3954609441) 137 mmol/L 135-145 K (test code = 4742681247) 3.9 mmol/L 3.5-5.0 Slight hemolysis CL (test code = 9898411548) 102 mmol/L 98-108 CO2 TOTAL (test code = 4322331549) 24 mmol/L 23-31 AGAP (test code = 8248842172) 11 2-16 BUN (test code = 0055451589) 9 mg/dL 7-23 Slight hemolysis GLUCOSE (test code = 8222494372) 94 mg/dL 70-110 CREATININE (test code = 2160-0) 0.70 mg/dL 0.50-1.04 TOTAL BILI (test code = 9968740009) 1.0 mg/dL 0.1-1.1 CALCIUM (test code = 5395408567) 9.3 mg/dL 8.6-10.6 T PROTEIN (test code = 5355836833) 8.4 g/dL 6.3-8.2 H ALBUMIN (test code = 9633364643) 5.0 g/dL 3.5-5.0 ALK PHOS (test code = 3356058532) 79 U/L 34-122 Slight hemolysis ALTv (test code = 1742-6) 74 U/L 5-35 H AST(SGOT) (test code = 5381964613) 57 U/L 13-40 H Slight hemolysis eGFR (test code = 02055-0) 120.2 mL/min/1.73m2 CKD-EPI eGFR (2020). Assuming creatinine has been stable day-to-day for at least three months, the eGFR indicates Category G1 (>= 90 mL/min/1.73 m2) Lab Interpretation (test code = 51966-7) Abnormal [facility]. METABOLIC PANEL (19784)2024-02-22 15:40:03* Test Item Value Reference Range Interpretation Comme nts NA (test code = 5244918830) 137 mmol/L 135-145 K (test code = 0924197572) 3.9 mmol/L 3.5-5.0 Slight hemolysis CL (test code = 7741325288) 102 mmol/L 98-108 CO2 TOTAL (test code = 6368744111) 24 mmol/L 23-31 AGAP (test code = 3398428101) 11 2-16 BUN (test code = 2515596048) 9 mg/dL 7-23 Slight hemolysis GLUCOSE (test code = 1448590466) 94 mg/dL 70-110 CREATININE (test code = 2160-0) 0.70 mg/dL 0.50-1.04 TOTAL BILI (test code = 9037326625) 1.0 mg/dL 0.1-1.1 CALCIUM (test code = 2719225376) 9.3 mg/dL 8.6-10.6 T PROTEIN (test code = 5749687388) 8.4 g/dL 6.3-8.2 H ALBUMIN (test code = 2485950470) 5.0 g/dL 3.5-5.0 ALK PHOS (test code = 8875054827) 79 U/L 34-122 Slight hemolysis ALTv (test code = 1742-6) 74 U/L 5-35 H AST(SGOT) (test code = 1549978248) 57 U/L 13-40 H Slight hemolysis eGFR (test code = 47626-8) 120.2 mL/min/1.73m2 CKD-EPI eGFR (2020). Assuming creatinine has been stable day-to-day for at least three months, the eGFR indicates Category G1 (>= 90 mL/min/1.73 m2) Lab Interpretation (test code = 54375-0) Abnormal [facility] DistrictCB WITH [id number] 15:35:41* Test Item Value Reference Range Interpretation [...] 34.3 g/dL 31.6-35.1 RDW-SD (test code = 63822-8) 41.3 fL 39.0-49.9 RDW-CV (test code = 788-0) 13.2 % 12.0-15.5 PLT (test code = 777-3) 329 166-358 MPV (test code = 07523-7) 9.9 fL 9.5-12.9 NRBC/100 WBC (test code = 2336091761) 0.0 0.0-10.0 NRBC x10^3 (test code = 6100931008) See_Comment [Automated messa ge] The system which generated this result transmitted reference range: 10*3/?L. The reference range was not used to interpret this result as normal/abnormal. GRAN MAT (NEUT) % (test code = 770-8) 66.5 % IMM GRAN % (test code = 4492987936) 0.30 % LYMPH % (test code = 736-9) 26.8 % MONO % (test code = 5905-5) 3.5 % EOS % (test code = 713-8) 2.3 % BASO % (test code = 706-2) 0.6 % GRAN MAT x10^3(ANC) (test code = 4588009460) 5.71 10*3/uL 1.88-7.09 IMM GRAN x10^3 (test code = 6167004751) 0.03 10*3/uL 0.00-0.06 LYMPH x10^3 (test code = 731-0) 2.30 10*3/uL 1.32-3.29 MONO x10^3 (test code = 742-7) 0.30 10*3/uL 0.33-0.92 L EOS x10^3 (test code = 711-2) 0.20 10*3/uL 0.03-0.39 BASO x10^3 (test code = 704-7) 0.05 10*3/uL 0.01-0.07 Lab Interpretation (test code = 08224-0) Abnormal [facility] WITH [id number] 15:35:41* Test Item Value Reference Range Interpretation [...] 34.3 g/dL 31.6-35.1 RDW-SD (test code = 18190-0) 41.3 fL 39.0-49.9 RDW-CV (test code = 788-0) 13.2 % 12.0-15.5 PLT (test code = 777-3) 329 166-358 MPV (test code = 16640-9) 9.9 fL 9.5-12.9 NRBC/100 WBC (test code = 1506388898) 0.0 0.0-10.0 NRBC x10^3 (test code = 6025814655) See_Comment [Automated messa ge] The system which generated this result transmitted reference range: 10*3/?L. The reference range was not used to interpret this result as normal/abnormal. GRAN MAT (NEUT) % (test code = 770-8) 66.5 % IMM GRAN % (test code = 7460606563) 0.30 % LYMPH % (test code = 736-9) 26.8 % MONO % (test code = 5905-5) 3.5 % EOS % (test code = 713-8) 2.3 % BASO % (test code = 706-2) 0.6 % GRAN MAT x10^3(ANC) (test code = 8763881601) 5.71 10*3/uL 1.88-7.09 IMM GRAN x10^3 (test code = 6659150878) 0.03 10*3/uL 0.00-0.06 LYMPH x10^3 (test code = 731-0) 2.30 10*3/uL 1.32-3.29 MONO x10^3 (test code = 742-7) 0.30 10*3/uL 0.33-0.92 L EOS x10^3 (test code = 711-2) 0.20 10*3/uL 0.03-0.39 BASO x10^3 (test code = 704-7) 0.05 10*3/uL 0.01-0.07 Lab Interpretation (test code = 80832-3) Abnormal [facility] MET[facility]OLIC PANEL (16596)2023-05-19 17:55:27* Test Item Value Reference Range Interpretation Comme nts NA (test code = 2111140098) 138 mmol/L 135-145 K (test code = 6832138438) 3.8 mmol/L 3.5-5.0 CL (test code = 6505676674) 107 mmol/L 98-108 CO2 TOTAL (test code = 1705302131) 21 mmol/L 23-31 L AGAP (test code = 4168059330) 10 2-16 BUN (test code = 9623536412) 8 mg/dL 7-23 GLUCOSE (test code = 8397533832) 89 mg/dL 70-110 CREATININE (test code = 7399160872) 0.69 mg/dL 0.50-1.04 TOTAL BILI (test code = 6659526800) 0.7 mg/dL 0.1-1.1 CALCIUM (test code = 9211848398) 8.3 mg/dL 8.6-10.6 L T PROTEIN (test code = 7406261971) 7.3 g/dL 6.3-8.2 ALBUMIN (test code = 4831166460) 4.1 g/dL 3.5-5.0 ALK PHOS (test code = 6285508254) 107 U/L 34-122 ALTv (test code = 1742-6) 75 U/L 5-35 H AST(SGOT) (test code = 7999836847) 42 U/L 13-40 H eGFR (test code = 21860-7) 121.4 mL/min/1.73m2 CKD-EPI eGFR (2020). Assuming creatinine has been stable day-to-day for at least three months, the eGFR indicates Category G1 (>= 90 mL/min/1.73 m2) Lab Interpretation (test code = 71335-1) Abnormal [facility] 16:39:24* Test Item Value Reference Range Interpretation Comme nts LIPASE (test code = 9814245363) 40 U/L 0-220 Lab Interpretation (test cod e = 77477-6) Normal [facility] PEL[facility] W [id number] 16:27:28EXAM: CT ABDOMEN PELVIS W CONTRAST HISTORY: [...] hypodensity isseen within the right gluteal soft tissue.[facility] CBC WITH [id number] 16:14:18* Test Item Value Reference Range Interpretation Comme nts WBC (test code = 6690-2) 6.32 See_Comment [Automated [employer]] The system which generated this result transmitted reference range: 4.30 - 11.10 10*3/?L. The reference range was not used to interpret this result as normal/abnormal. RBC (test code = 789-8) 4.61 See_Comment [Automated [employer]] The system which generated this result transmitted [...] 34.1 g/dL 31.6-35.1 RDW-SD (test code = 01034-0) 42.0 fL 39.0-49.9 RDW-CV (test code = 788-0) 13.0 % 12.0-15.5 PLT (test code = 777-3) 369 See_Comment H [Automated messa ge] The system which generated this result transmitted reference range: 166 - 358 10*3/?L. The reference range was not used to interpret this result as normal/abnormal. MPV (test code = 73198-2) 9.9 fL 9.5-12.9 NRBC/100 WBC (test code = 5309038250) 0.0 See_Comment [Automated [employer] ss[employer]] The system which generated this result transmitted reference range: 0.0 - 10.0 /100 WBCs. The reference range was not used to interpret this result as normal/abnormal. NRBC x10^3 (test code = 2014557382) See_Comment [Automated messa ge] The system which generated this result transmitted reference range: 10*3/?L. The reference range was not used to interpret this result as normal/abnormal. GRAN MAT (NEUT) % (test code = 770-8) 64.8 % IMM GRAN % (test code = 9493686355) 0.50 % LYMPH % (test code = 736-9) 25.3 % MONO % (test code = 5905-5) 4.1 % EOS % (test code = 713-8) 4.7 % BASO % (test code = 706-2) 0.6 % GRAN MAT x10^3(ANC) (test code = 4462689388) 4.09 10*3/uL 1.88-7.09 IMM GRAN x10^3 (test code = 0077104270) 0.03 10*3/uL 0.00-0.06 LYMPH x10^3 (test code = 731-0) 1.60 10*3/uL 1.32-3.29 MONO x10^3 (test code = 742-7) 0.26 10*3/uL 0.33-0.92 L EOS x10^3 (test code = 711-2) 0.30 10*3/uL 0.03-0.39 BASO x10^3 (test code = 704-7) 0.04 10*3/uL 0.01-0.07 Lab Interpretation (test code = 34926-1) Abnormal [facility] [id number] 15:31:00* Test Item Value Reference Range Interpretation Comme nts POCT PREG (test code = 1605) Negative On board controls acceptable with C Line (test code = 3574) Yes POCT PREG LOT # (test code = 3575) [id number] POCT PREG TEST DATE ( test code = 3576) 2024-07-21 Lab Interpretation (test cod e = 41680-2) Normal [facility] WITH [id number] 04:28:47* Test Item Value Reference Range Interpretation [...] 34.0 g/dL 31.6-35.1 RDW-SD (test code = 70918-1) 40.3 fL 39.0-49.9 RDW-CV (test code = 788-0) 13.1 % 12.0-15.5 PLT (test code = 777-3) 307 See_Comment [Automated messa ge] The system which generated this result transmitted reference range: 166 - 358 10*3/?L. The reference range was not used to interpret this result as normal/abnormal. MPV (test code = 49631-9) 11.0 fL 9.5-12.9 NRBC/100 WBC (test code = 3854203182) 0.0 See_Comment [Automated me ssage] The system which generated this result transmitted reference range: 0.0 - 10.0 /100 WBCs. The reference range was not used to interpret this result as normal/abnormal. NRBC x10^3 (test code = 9490953395) See_Comment [Automated messa ge] The system which generated this result transmitted reference range: 10*3/?L. The reference range was not used to interpret this result as normal/abnormal. GRAN MAT (NEUT) % (test code = 770-8) 52.0 % IMM GRAN % (test code = 7637171469) 0.20 % LYMPH % (test code = 736-9) 38.0 % MONO % (test code = 5905-5) 4.6 % EOS % (test code = 713-8) 4.6 % BASO % (test code = 706-2) 0.6 % GRAN MAT x10^3(ANC) (test code = 9916732913) 2.84 10*3/uL 1.88-7.09 IMM GRAN x10^3 (test code = 0713273643) 0.00-0.06 LYMPH x10^3 (test code = 731-0) 2.07 10*3/uL 1.32-3.29 MONO x10^3 (test code = 742-7) 0.25 10*3/uL 0.33-0.92 L EOS x10^3 (test code = 711-2) 0.25 10*3/uL 0.03-0.39 BASO x10^3 (test code = 704-7) 0.03 10*3/uL 0.01-0.07 Lab Interpretation (test code = 35396-0) Abnormal [facility] (69056)2023-01-12 04:12:43* Test Item Value Reference Range Interpretation Comme nts NA (test code = 0961361067) 137 mmol/L 135-145 K (test code = 2924714121) 3.4 mmol/L 3.5-5.0 L CL (test code = 9398894348) 104 mmol/L 98-108 CO2 TOTAL (test code = 2030996103) 24 mmol/L 23-31 AGAP (test code = 9374502654) 9 2-16 BUN (test code = 1642876575) 2 mg/dL 7-23 L GLUCOSE (test code = 0580608251) 92 mg/dL 70-110 CREATININE (test code = 5941549442) 0.80 mg/dL 0.50-1.04 TOTAL BILI (test code = 3102106992) 0.4 mg/dL 0.1-1.1 CALCIUM (test code = 8675114712) 8.4 mg/dL 8.6-10.6 L T PROTEIN (test code = 3189940024) 6.3 g/dL 6.3-8.2 ALBUMIN (test code = 4175746458) 3.7 g/dL 3.5-5.0 ALK PHOS (test code = 9564677264) 87 U/L 34-122 ALTv (test code = 1742-6) 27 U/L 5-35 AST(SGOT) (test code = 4011816336) 33 U/L 13-40 eGFR (test code = 7382554881) 86.0 mL/min/1.73m2 WESLEY (test code = WESLEY) [...] imaging tests). Lab Interpretation (test code = 79175-9) Abnormal [facility]. METABOLIC PANEL (06414)2023-01-12 04:12:43* Test Item Value Reference Range Interpretation Comme nts NA (test code = 8269137596) 137 mmol/L 135-145 K (test code = 1136301316) 3.4 mmol/L 3.5-5.0 L CL (test code = 3467364574) 104 mmol/L 98-108 CO2 TOTAL (test code = 1700261562) 24 mmol/L 23-31 AGAP (test code = 6979245310) 9 2-16 BUN (test code = 4402681412) 2 mg/dL 7-23 L GLUCOSE (test code = 5499097277) 92 mg/dL 70-110 CREATININE (test code = 0098424835) 0.80 mg/dL 0.50-1.04 TOTAL BILI (test code = 1147893006) 0.4 mg/dL 0.1-1.1 CALCIUM (test code = 3172928594) 8.4 mg/dL 8.6-10.6 L T PROTEIN (test code = 5536500897) 6.3 g/dL 6.3-8.2 ALBUMIN (test code = 8755476457) 3.7 g/dL 3.5-5.0 ALK PHOS (test code = 9066550003) 87 U/L 34-122 ALTv (test code = 1742-6) 27 U/L 5-35 AST(SGOT) (test code = 5380963441) 33 U/L 13-40 eGFR (test code = 2405372048) 86.0 mL/min/1.73m2 WESLEY (test code = WESLEY) [...] imaging tests). Lab Interpretation (test code = 48594-9) [facility]23[facility]12 04:07:04 BETA HCG<2.39Non- female and male patients: <5 mIU/mL01/11/2023 11:07 PM [facility] Gestational Age ?Range (mIU/mL) 1-10 ?Weeks ?08-76817943-39 Weeks ?48877-44231677-98 Weeks ?6288-32539723-46 Weeks ?1703-001008 Biotin has been reported to cause a negative bias, interpret results relative to patient's use of biotin. Gestational Age ?Range (mIU/mL) 1-10 ?Weeks ?03-96884074-69 Weeks ?74200-88442470-32 Weeks ?9782-66710735-13 Weeks?1531-919705 Biotin has been reported to cause a negative bias, interpret results relative to patient's use of biotin. Gestational Age ?Range (mIU/mL) 1-10 ?Weeks ?25-89704035-54 Weeks ?92175-52422635-04 Weeks ?3625-63790788-57 Weeks ?1531-185323 Biotin has been reported to cause a negative bias, interpretresults relative to patient's use of biotin.[facility] 04:07:04BETA HCG<2.39Non- female and male patients: <5 mIU/mL01/11/2023 11:07 PM [facility] Gestational Age ?Range (mIU/mL) 1-10 ?Weeks ?28-36869416-71 Weeks ?73680-61645393-52 Weeks ?5874-35499784-56 Weeks ?1531-067098 Biotin has been reported to cause a negative bias, interpret results relative topatient's use of biotin. Gestational Age ?Range (mIU/mL) 1-10 ?Weeks ?73-32112048-32 Weeks ?84761-86764464-45 Weeks ?7196-33895182-15 Weeks?1531-532088 Biotin has been reported to cause a negative bias, interpret results relative to patient's use of biotin. Gestational Age ?Range (mIU/mL) 1-10 ?Weeks ?35-69073894-63 Weeks ?28192-15184501-11 Weeks ?8109-01735579-15 Weeks ?9838-339085 Biotin has been reported to cause a negative bias, interpretresults relative to patient's use of biotin.[facility] 03:22:58* Test Item Value Reference Range Interpretation Comme nts LIPASE (test code = 8618272502) 41 U/L 0-220 Lab Interpretation (test cod e = 68677-9) Normal [facility] 03:22:58* Test Item Value Reference Range Interpretation Comme nts LIPASE (test code = 4621985322) 41 U/L 0-220 Lab Interpretation (test cod e = 86197-4) Normal [facility] DistrictPO[facility] [id number] 03:02:00* Test Item Value Reference Range Interpretation Comme nts POCT PREG (test code = 1605) Negative On board controls acceptable with C Line (test code = 3574) Yes POCT PREG LOT # (test code = 3575) [id number] POCT PREG TEST DATE ( test code = 3576) 05/15/2024 Lab Interpretation (test cod e = 72465-3) Normal [facility] [id number] 03:02:00* Test Item Value Reference Range Interpretation Comme nts POCT PREG (test code = 1605) Negative On board controls acceptable with C Line (test code = 3574) Yes POCT PREG LOT # (test code = 3575) [id number] POCT PREG TEST DATE ( test code = 3576) 05/15/2024 Lab Interpretation (test cod e = 55114-8) Normal [facility], [id number] 00:23:34* Test Item Value Reference Range Interpretation Comme nts PREG SERUM (test code = 8255500708) Negative WESLEY (test code = WESLEY) Less than 10 IU/L. ?If low titer or ectopic is suspected, resubmit specimen in 48-72 hours. [facility]. METABOLIC PANEL (22647)2022-07-31 23:58:12* Test Item Value Reference Range Interpretation Comme nts NA (test code = 2103556958) 140 mmol/L 135-145 K (test code = 1398144757) 3.6 mmol/L 3.5-5.0 CL (test code = 1165014735) 106 mmol/L 98-108 CO2 TOTAL (test code = 0247428381) 21 mmol/L 23-31 L AGAP (test code = 2615191238) 13 2-16 BUN (test code = 9075961851) 8 mg/dL 7-23 GLUCOSE (test code = 3888877125) 90 mg/dL 70-110 CREATININE (test code = 1803823703) 0.90 mg/dL 0.50-1.04 TOTAL BILI (test code = 1906764976) 0.5 mg/dL 0.1-1.1 CALCIUM (test code = 8543273789) 9.0 mg/dL 8.6-10.6 T PROTEIN (test code = 0518236994) 7.8 g/dL 6.3-8.2 ALBUMIN (test code = 0798196617) 4.6 g/dL 3.5-5.0 ALK PHOS (test code = 3761599331) 63 U/L 34-122 ALTv (test code = 1742-6) 23 U/L 5-35 AST(SGOT) (test code = 6019539783) 27 U/L 13-40 eGFR (test code = 6130011587) 75.1 mL/min/1.73m2 WESLEY (test code = WESLEY) [...] imaging tests). Lab Interpretation (test code = 89382-2) [facility] Test Item Value Reference Range Interpretation Comme nts LIPASE (test code = 1863870810) 55 U/L 0-220 Lab Interpretation (test cod e = 31965-4) [facility] SNRG3834-29-19 23:47:31* Test Item Value Reference Range Interpretation Comme nts WBC (test code = 6690-2) 5.64 See_Comment [Automated [employer]] The system which generated this result transmitted reference range: 4.30 - 11.10 10*3/?L. The reference range was not used to interpret this result as normal/abnormal. RBC (test code = 789-8) 4.51 See_Comment [Automated [employer]] The system which generated this result transmitted [...] 32.6 g/dL 31.6-35.1 RDW-SD (test code = 40395-2) 42.5 fL 39.0-49.9 RDW-CV (test code = 788-0) 13.0 % 12.0-15.5 PLT (test code = 777-3) 339 See_Comment [Automated messa ge] The system which generated this result transmitted reference range: 166 - 358 10*3/?L. The reference range was not used to interpret this result as normal/abnormal. MPV (test code = 33413-5) 9.4 fL 9.5-12.9 L NRBC/100 WBC (test code = 0997071846) 0.0 See_Comment [Automated me ssage] The system which generated this result transmitted reference range: 0.0 - 10.0 /100 WBCs. The reference range was not used to interpret this result as normal/abnormal. NRBC x10^3 (test code = 4706828039) See_Comment [Automated messa ge] The system which generated this result transmitted reference range: 10*3/?L. The reference range was not used to interpret this result as normal/abnormal. GRAN MAT (NEUT) % (test code = 770-8) 51.2 % IMM GRAN % (test code = 1129901567) 0.20 % LYMPH % (test code = 736-9) 36.5 % MONO % (test code = 5905-5) 5.7 % EOS % (test code = 713-8) 5.9 % BASO % (test code = 706-2) 0.5 % GRAN MAT x10^3(ANC) (test code = 4083817337) 2.89 10*3/uL 1.88-7.09 IMM GRAN x10^3 (test code = 6904950203) 0.00-0.06 LYMPH x10^3 (test code = 731-0) 2.06 10*3/uL 1.32-3.29 MONO x10^3 (test code = 742-7) 0.32 10*3/uL 0.33-0.92 L EOS x10^3 (test code = 711-2) 0.33 10*3/uL 0.03-0.39 BASO x10^3 (test code = 704-7) 0.03 10*3/uL 0.01-0.07 Lab Interpretation (test code = 53379-5) Abnormal [facility] MOLECULAR [id number] 16:14:38* Test Item Value Reference Range Interpretation Comme nts POCT Molecular Strep (test c ode = 81002-9) Negative Negative Lab Interpretation (test cod e = 92934-5) [facility] (24278)2022-05-05 19:35:37* Test Item Value Reference Range Interpretation Comme [facility] NA (test code = 5561742117) 139 mmol/L 135-145 K (test code = 3101843357) 4.4 mmol/L 3.5-5.0 CL (test code = 9807911468) 104 mmol/L 98-108 CO2 TOTAL (test code = 7232533907) 22 mmol/L 23-31 L AGAP (test code = 0637178507) 2-16 BUN (test code = 1500492055) 11 mg/dL 7-23 GLUCOSE (test code = 0941503046) 95 mg/dL 70-110 CREATININE (test code = 3629612961) 0.71 mg/dL 0.50-1.04 TOTAL BILI (test code = 7433767613) 0.4 mg/dL 0.1-1.1 CALCIUM (test code = 7332291393) 9.1 mg/dL 8.6-10.6 T PROTEIN (test code = 5251238547) 7.9 g/dL 6.3-8.2 ALBUMIN (test code = 9597112881) 4.7 g/dL 3.5-5.0 ALK PHOS (test code = 0915988977) 114 U/L 34-122 ALTv (test code = 1742-6) 21 U/L 5-35 AST(SGOT) (test code = 3468346715) 21 U/L 13-40 eGFR (test code = 1627506515) mL/min/1.73m2 WESLEY (test code = WESLEY) Association [...] imaging tests). Lab Interpretation (test code = 17930-5) Abnormal [facility] WITH [id number] 19:25:37* Test Item Value Reference Range Interpretation Comme nts WBC (test code = 6690-2) See_Comment [Automated [employer]] The system which generated this result transmitted reference range: 4.30 - 11.10 10*3/?L. The reference range was not used to interpret this result as normal/abnormal. RBC (test code = 789-8) See_Comment [[employer]] The system which generated this result transmitted [...] 32.9 g/dL 31.6-35.1 RDW-SD (test code = 98026-6) 41.7 fL 39.0-49.9 RDW-CV (test code = 788-0) 12.7 % 12.0-15.5 PLT (test code = 777-3) See_Comment H [Automated messa ge] The system which generated this result transmitted reference range: 166 - 358 10*3/?L. The reference range was not used to interpret this result as normal/abnormal. MPV (test code = 32584-9) 8.8 fL 9.5-12.9 L NRBC/100 WBC (test code = 6814802165) See_Comment [Automated me ssage] The system which generated this result transmitted reference range: 0.0 - 10.0 /100 WBCs. The reference range was not used to interpret this result as normal/abnormal. NRBC x10^3 (test code = 6276925116) See_Comment [Automated messa ge] The system which generated this result transmitted reference range: 10*3/?L. The reference range was not used to interpret this result as normal/abnormal. GRAN MAT (NEUT) % (test code = 770-8) 56.1 % IMM GRAN % (test code = 2512560852) 0.40 % LYMPH % (test code = 736-9) 29.9 % MONO % (test code = 5905-5) 5.4 % EOS % (test code = 713-8) 7.8 % BASO % (test code = 706-2) 0.4 % GRAN MAT x10^3(ANC) (test code = 0750558815) 3.75 10*3/uL 1.88-7.09 IMM GRAN x10^3 (test code = 2627578838) 0.03 10*3/uL 0.00-0.06 LYMPH x10^3 (test code = 731-0) 2.00 10*3/uL 1.32-3.29 MONO x10^3 (test code = 742-7) 0.36 10*3/uL 0.33-0.92 EOS x10^3 (test code = 711-2) 0.52 10*3/uL 0.03-0.39 H BASO x10^3 (test code = 704-7) 0.03 10*3/uL 0.01-0.07 Lab Interpretation (test code = 87942-1) Abnormal [facility] [id number] 19:00:00* Test Item Value Reference Range Interpretation Comme nts POCT PREG (test code = 1605) negative On board controls acceptable with C Line (test code = 3574) present POCT PREG LOT # (test code = 3575) [id number] POCT PREG TEST DATE ( test code = 3576) 08-11-2023 Lab Interpretation (test cod e = 99624-0) Normal [facility] WITH [id number] 15:21:11* Test Item Value Reference Range Interpretation [...] 33.0 g/dL 31.6-35.1 RDW-SD (test code = 32062-5) 42.6 fL 39.0-49.9 RDW-CV (test code = 788-0) 12.9 % 12.0-15.5 PLT (test code = 777-3) See_Comment H [Automated messa ge] The system which generated this result transmitted reference range: 166 - 358 10*3/?L. The reference range was not used to interpret this result as normal/abnormal. MPV (test code = 33394-8) 9.1 fL 9.5-12.9 L NRBC/100 WBC (test code = 9274805263) See_Comment [Automated me ssage] The system which generated this result transmitted reference range: 0.0 - 10.0 /100 WBCs. The reference range was not used to interpret this result as normal/abnormal. NRBC x10^3 (test code = 5063860747) See_Comment [Automated messa ge] The system which generated this result transmitted reference range: 10*3/?L. The reference range was not used to interpret this result as normal/abnormal. GRAN MAT (NEUT) % (test code = 770-8) 56.8 % IMM GRAN % (test code = 1982635104) 0.30 % LYMPH % (test code = 736-9) 29.5 % MONO % (test code = 5905-5) 4.3 % EOS % (test code = 713-8) 8.3 % BASO % (test code = 706-2) 0.8 % GRAN MAT x10^3(ANC) (test code = 4950502109) 3.57 10*3/uL 1.88-7.09 IMM GRAN x10^3 (test code = 0730287461) 0.00-0.06 LYMPH x10^3 (test code = 731-0) 1.85 10*3/uL 1.32-3.29 MONO x10^3 (test code = 742-7) 0.27 10*3/uL 0.33-0.92 L EOS x10^3 (test code = 711-2) 0.52 10*3/uL 0.03-0.39 H BASO x10^3 (test code = 704-7) 0.05 10*3/uL 0.01-0.07 Lab Interpretation (test code = 86916-9) [facility]normal [facility] (76212)2022-04-26 15:12:13* Test Item Value Reference Range Interpretation Comme nts NA (test code = 1421075904) 141 mmol/L 135-145 K (test code = 3944552965) 3.4 mmol/L 3.5-5.0 L CL (test code = 1289146703) 104 mmol/L 98-108 CO2 TOTAL (test code = 7503852881) 23 mmol/L 23-31 AGAP (test code = 6113351927) 2-16 BUN (test code = 4953029754) 9 mg/dL 7-23 GLUCOSE (test code = 9610781392) 101 mg/dL 70-110 CREATININE (test code = 2886268816) 0.82 mg/dL 0.50-1.04 TOTAL BILI (test code = 0309648124) 0.7 mg/dL 0.1-1.1 CALCIUM (test code = 6576428031) 9.3 mg/dL 8.6-10.6 T PROTEIN (test code = 1622765918) 8.1 g/dL 6.3-8.2 ALBUMIN (test code = 2901791908) 4.7 g/dL 3.5-5.0 ALK PHOS (test code = 4950631011) 108 U/L 34-122 ALTv (test code = 1742-6) 24 U/L 5-35 AST(SGOT) (test code = 4404685130) 49 U/L 13-40 H eGFR (test code = 6910978938) mL/min/1.73m2 WESLEY (test code = WESLEY) Association [...] imaging tests). Lab Interpretation (test code = 28644-7) Abnormal [facility] [id number] 14:45:00* Test Item Value Reference Range Interpretation Comme nts POCT PREG (test code = 1605) negative On board controls acceptable with C Line (test code = 3574) present POCT PREG LOT # (test code = 3575) [id number] POCT PREG TEST DATE ( test code = 3576) 08/11/2023 Lab Interpretation (test cod e = 42019-1) Normal [facility] [id number] 01:22:00* Test Item Value Reference Range Interpretation Comme nts POCT PREG (test code = 1605) Negative On board controls acceptable with C Line (test code = 3574) Present POCT PREG LOT # (test code = 3575) [id number] POCT PREG TEST DATE ( test code = 3576) 08-11-2023 Lab Interpretation (test cod e = 30230-2) Normal [facility] METABOLIC PANEL (NA, K, CL, CO2, GLUCOSE, BUN, CREATININE, CA)2022-04-07 23:01:10* Test Item Value Reference Range Interpretation Comme [facility] NA (test code = 4162882910) 138 mmol/L 135-145 K (test code = 6706312089) 4.3 mmol/L 3.5-5.0 CL (test code = 1291723628) 107 mmol/L 98-108 CO2 TOTAL (test code = 9644565728) 20 mmol/L 23-31 L AGAP (test code = 5144491961) 2-16 BUN (test code = 7063784548) 9 mg/dL 7-23 GLUCOSE (test code = 0326814507) 204 mg/dL 70-110 H CREATININE (test code = 2061124979) 0.74 mg/dL 0.50-1.04 CALCIUM (test code = 8383734914) 9.1 mg/dL 8.6-10.6 eGFR (test code = 8107572166) mL/min/1.73m2 WESLEY (test code = WESLEY) Association [...] imaging tests). Lab Interpretation (test code = 84766-2) Abnormal [facility] WITH [id number] 22:57:34* Test Item Value Reference Range Interpretation Comme nts WBC (test code = 6690-2) See_Comment [Automated [employer]] The system which generated this result transmitted reference range: 4.30 - 11.10 10*3/?L. The reference range was not used to interpret this result as normal/abnormal. RBC (test code = 789-8) See_Comment [Automated [employer]] The system which generated this result transmitted [...] 33.5 g/dL 31.6-35.1 RDW-SD (test code = 64166-9) 42.9 fL 39.0-49.9 RDW-CV (test code = 788-0) 13.4 % 12.0-15.5 PLT (test code = 777-3) See_Comment H [Automated messa ge] The system which generated this result transmitted reference range: 166 - 358 10*3/?L. The reference range was not used to interpret this result as normal/abnormal. MPV (test code = 24225-9) 8.9 fL 9.5-12.9 L NRBC/100 WBC (test code = 1470525803) See_Comment [Automated [employer] ssage] The system which generated this result transmitted reference range: 0.0 - 10.0 /100 WBCs. The reference range was not used to interpret this result as normal/abnormal. NRBC x10^3 (test code = 5867136894) See_Comment [Automated messa ge] The system which generated this result transmitted reference range: 10*3/?L. The reference range was not used to interpret this result as normal/abnormal. GRAN MAT (NEUT) % (test code = 770-8) 88.7 % IMM GRAN % (test code = 8027637320) 0.70 % LYMPH % (test code = 736-9) 9.4 % MONO % (test code = 5905-5) 0.9 % EOS % (test code = 713-8) 0.1 % BASO % (test code = 706-2) 0.2 % GRAN MAT x10^3(ANC) (test code = 4576584512) 7.81 10*3/uL 1.88-7.09 H IMM GRAN x10^3 (test code = 4958105274) 0.06 10*3/uL 0.00-0.06 LYMPH x10^3 (test code = 731-0) 0.83 10*3/uL 1.32-3.29 L MONO x10^3 (test code = 742-7) 0.08 10*3/uL 0.33-0.92 L EOS x10^3 (test code = 711-2) 0.03-0.39 L BASO x10^3 (test code = 704-7) 0.01-0.07 Lab Interpretation (test code = 99288-4) Abnormal [facility] [id number] 14:07:00* Test Item Value Reference Range Interpretation Comme nts POCT PREG (test code = 1605) negative On board controls acceptable with C Line (test code = 3574) present POCT PREG LOT # (test code = 3575) [id number] POCT PREG TEST DATE ( test code = 3576) 08/11/2023 Lab Interpretation (test cod e = 92460-9) Normal [facility] [id number] 13:52:00* Test Item Value Reference Range Interpretation Comme nts POCT PREG (test code = 1605) negative On board controls acceptable with C Line (test code = 3574) present Lab Interpretation (test cod e = 42613-7) Normal [facility] [id number] 14:59:00* Test Item Value Reference Range Interpretation Comme nts POCT PREG (test code = 1605) negative On board controls acceptable with C Line (test code = 3574) yes POCT PREG LOT # (test code = 3575) [id number] POCT PREG TEST DATE ( test code = 3576) 07/11/2023 Lab Interpretation (test cod e = 87988-8) Normal [facility]. METABOLIC PANEL (86215)2022 17:51:43* Test Item Value Reference Range Interpretation Comme nts NA (test code = 3658138284) 139 mmol/L 135-145 K (test code = 0286220721) 4.1 mmol/L 3.5-5 CL (test code = 3133231743) 104 mmol/L 98-108 CO2 TOTAL (test code = 7480716296) 22 mmol/L 23-31 L AGAP (test code = 6660397990) 2-16 BUN (test code = 6157812879) 7 mg/dL 7-23 GLUCOSE (test code = 3922659505) 114 mg/dL 70-110 H CREATININE (test code = 7506942749) 0.69 mg/dL 0.5-1.04 TOTAL BILI (test code = 0757360434) 0.4 mg/dL 0.1-1.1 CALCIUM (test code = 3520090389) 9.7 mg/dL 8.6-10.6 T PROTEIN (test code = 5564948669) 7.2 g/dL 6.3-8.2 ALBUMIN (test code = 5850888078) 4.6 g/dL 3.5-5 ALK PHOS (test code = 7603765440) 65 U/L 34-122 ALTv (test code = 1742-6) 15 U/L 5-35 AST(SGOT) (test code = 3299967286) 19 U/L 13-40 eGFR (test code = 0929270347) mL/min/1.73m2 WESLEY (test code = WESLEY) Association [...] imaging tests). Lab Interpretation (test code = 28502-7) Abnormal [facility] WITH [id number] 17:40:24* Test Item Value Reference Range Interpretation [...] 33.3 g/dL 31.6-35.1 RDW-SD (test code = 49075-1) 43.1 fL 39-49.9 RDW-CV (test code = 788-0) 13.2 % 12-15.5 PLT (test code = 777-3) See_Comment [Automated messa ge] The system which generated this result transmitted reference range: 166 - 358 10*3/?L. The reference range was not used to interpret this result as normal/abnormal. MPV (test code = 62189-1) 9.5 fL 9.5-12.9 NRBC/100 WBC (test code = 7941699291) See_Comment [Automated [employer] ssage] The system which generated this result transmitted reference range: 0.0 - 10.0 /100 WBCs. The reference range was not used to interpret this result as normal/abnormal. NRBC x10^3 (test code = 6879285660) See_Comment [Automated messa ge] The system which generated this result transmitted reference range: 10*3/?L. The reference range was not used to interpret this result as normal/abnormal. GRAN MAT (NEUT) % (test code = 770-8) 57.8 % IMM GRAN % (test code = 8914494185) 0.20 % LYMPH % (test code = 736-9) 30.8 % MONO % (test code = 5905-5) 5.1 % EOS % (test code = 713-8) 5.6 % BASO % (test code = 706-2) 0.5 % GRAN MAT x10^3(ANC) (test code = 1953111866) 3.61 10*3/uL 1.88-7.09 IMM GRAN x10^3 (test code = 5480442703) 0-0.06 LYMPH x10^3 (test code = 731-0) 1.92 10*3/uL 1.32-3.29 MONO x10^3 (test code = 742-7) 0.32 10*3/uL 0.33-0.92 L EOS x10^3 (test code = 711-2) 0.35 10*3/uL 0.03-0.39 BASO x10^3 (test code = 704-7) 0.03 10*3/uL 0.01-0.07 Lab Interpretation (test code = 26510-9) Abnormal [facility] [id number] 17:27:00* Test Item Value Reference Range Interpretation Comme nts POCT PREG (test code = 1605) negative On board controls acceptable with C Line (test code = 3574) present POCT PREG LOT # (test code = 3575) [id number] POCT PREG TEST DATE ( test code = 3576) Lab Interpretation (test cod e = 78825-4) [facility] 12:45:21* Test Item Value Reference Range Interpretation Comme [facility] LIPASE (test code = 4129842993) 41 U/L 0-220 Lab Interpretation (test cod e = 02345-1) Normal [facility] [id number] 10:57:00* Test Item Value Reference Range Interpretation Comme nts POCT PREG (test code = 1605) Negative On board controls acceptable with C Line (test code = 3574) Present POCT PREG LOT # (test code = 3575) [id number] POCT PREG TEST DATE ( test code = 3576) 03/12/2023 Lab Interpretation (test cod e = 07408-6) Normal [facility] METABOLIC PANEL (NA, K, CL, CO2, GLUCOSE, BUN, CREATININE, CA)2022-01-18 10:56:51* Test Item Value Reference Range Interpretation Comme nts NA (test code = 8526522836) 137 mmol/L 135-145 K (test code = 0720233670) 4.6 mmol/L 3.5-5 Slight hemolysis CL (test code = 5880834167) 108 mmol/L 98-108 CO2 TOTAL (test code = 3348526676) 22 mmol/L 23-31 L AGAP (test code = 7393065142) 2-16 BUN (test code = 1895654830) 11 mg/dL 7-23 Slight hemolysis GLUCOSE (test code = 4710134133) 83 mg/dL 70-110 CREATININE (test code = 4280441205) 0.68 mg/dL 0.5-1.04 CALCIUM (test code = 3178988290) 8.8 mg/dL 8.6-10.6 eGFR (test code = 6998489500) mL/min/1.73m2 WESLEY (test code = WESLEY) Association [...] imaging tests). Lab Interpretation (test code = 38202-0) [facility]normal [facility] (97432[facility] (ALB,T.PRO,BILI T,BU/BC,ALT,AST,ALK PHOS)2022-01-18 10:56:51* Test Item Value Reference Range Interpretation Comme nts TOTAL BILI (test code = 4285302121) 0.6 mg/dL 0.1-1.1 BILI UNCON (test code = 9535634281) 0.1 mg/dL 0.1-1.1 BILI CONJ (test code = 7664888253) 0.0 mg/dL 0-0.3 T PROTEIN (test code = 8029739381) 8.6 g/dL 6.3-8.2 H ALBUMIN (test code = 8014414328) 5.1 g/dL 3.5-5 H ALK PHOS (test code = 2807867979) 79 U/L 34-122 ALTv (test code = 1742-6) 117 U/L 5-35 H AST(SGOT) (test code = 5494780810) 163 U/L 13-40 H Lab Interpretation (test cod e = 79264-7) Abnormal [facility], [id number] 10:54:25* Test Item Value Reference Range Interpretation Comme nts PREG SERUM (test code = 6636626171) Negative WESLEY (test code = WESLEY) Less than 10 IU/L. ?If low titer or ectopic is suspected, resubmit specimen in 48-72 hours. [facility] [id number] 10:40:49* Test Item Value Reference Range Interpretation [...] 33.6 g/dL 31.6-35.1 RDW-SD (test code = 25620-2) 45.3 fL 39-49.9 RDW-CV (test code = 788-0) 14.5 % 12-15.5 PLT (test code = 777-3) See_Comment [Automated [employer]] The system which generated this result transmitted reference range: 166 - 358 10*3/?L. The reference range was not used to interpret this result as normal/abnormal. MPV (test code = 90809-9) 9.5 fL 9.5-12.9 NRBC/100 WBC (test code = 9495623959) See_Comment [Automated [employer] ssage] The system which generated this result transmitted reference range: 0.0 - 10.0 /100 WBCs. The reference range was not used to interpret this result as normal/abnormal. NRBC x10^3 (test code = 7480835257) See_Comment [Automated messa ge] The system which generated this result transmitted reference range: 10*3/?L. The reference range was not used to interpret this result as normal/abnormal. GRAN MAT (NEUT) % (test code = 770-8) 47.6 % IMM GRAN % (test code = 9422261310) 0.60 % LYMPH % (test code = 736-9) 39.9 % MONO % (test code = 5905-5) 5.9 % EOS % (test code = 713-8) 5.3 % BASO % (test code = 706-2) 0.7 % GRAN MAT x10^3(ANC) (test code = 9732148613) 4.45 10*3/uL 1.88-7.09 IMM GRAN x10^3 (test code = 2454973895) 0.06 10*3/uL 0-0.06 LYMPH x10^3 (test code = 731-0) 3.74 10*3/uL 1.32-3.29 H MONO x10^3 (test code = 742-7) 0.55 10*3/uL 0.33-0.92 EOS x10^3 (test code = 711-2) 0.50 10*3/uL 0.03-0.39 H BASO x10^3 (test code = 704-7) 0.07 10*3/uL 0.01-0.07 Lab Interpretation (test code = 88947-4) Abnormal [facility] [id number] 18:31:00* Test Item Value Reference Range Interpretation Comme nts POCT PREG (test code = 1605) Negative On board controls acceptable with C Line (test code = 3574) Yes POCT PREG LOT # (test code = 3575) POCT PREG TEST DATE ( test code = 3576) [facility] URINALYSIS W/O SPECIFIC [id number] 18:31:00* Test Item Value Reference Range Interpretation [...] = 3257) Trace Negative - Negati ve [facility] Consult Notes Date/Time Note Provider Source 2024-03-11 [...] N/A 07/21/2019 Surgeon: Prasanna Vargas MD; Location: [facility] Delivery OR Location ESOPHAGOGASTRODUODENOSCOPY Upper 02/27/2024 Surgeon: Jas Buenrostro MD; Location: ENDOSCOPY ([facility]) OR LOCATION FLEXIBLE SIGMOIDOSCOPY (SHX) N/A 02/27/2024 Surgeon: Jas Buenrostro MD; Location: ENDOSCOPY ([facility]) OR LOCATION TUBAL LIGATION N/A 07/21/2019 Surgeon: Prasanna Vargas MD; Location: [facility] Labor and [...] Labs 03/10/24 1042 UPROTEIN Negative UGLUCOSE Normal [facility] Trace UBILI Negative ULEUKEST 75/uL* UNITRITE Negative [...] I agree with resident's note as written. [facility] 2024-02-26 10:25:08 Associated Order(s): CONSULT [...] N/A 07/21/2019 Surgeon: Prasanna Vargas MD; Location: [facility] OR Location TUBAL LIGATION N/A 07/21/2019 Surgeon: Prasanna Vargas MD; Location: [facility] [...] Friends and Family: Not on file Attends Confucianist Services: Not on file Active Member of [...] and flexible sigmoidoscopy tomorrow. JAS BUENROSTRO MD COLLATERAL CLERK, DIVISION OF GASTROENTEROLOGY AND HEPATOLOGY [facility]. [facility] 2023-01-12 00:12:43 Associated Order(s): CONSULT [...] symptomatic cholelithiasis 1.5 months ago at OSH ([place]). Pt states that she has had persistent RUQ pain with nausea and po intolerance along with intermittent chills and vomiting since surgery. Was seen by PCP and instructed to come to [facility] ED for further evaluation. Review of Systems: [...] N/A 07/21/2019 Surgeon: Prasanna Vargas MD; Location: [facility] OR Location TUBAL LIGATION N/A 07/21/2019 Surgeon: Prasanna Vargas MD; Location: [facility] and [...] skin once every month. 1 mL 3 Kepsbsetpq-Crqwtecwulkpz-Iyur (FIORICET) 50-300-40 mg per capsule Take 1 [...] Pulse: [104] Resp: [18] BP: (135)/(91) Vitals: 01/11/232102 BP: (!) 135/91 Pulse: 104 Resp: 18 [...] symptomatic cholelithiasis 1.5 months ago at OS ([place]). Plan: Admission to [facility] service [...] pain, nausea, anorexia since lap pasquale at [facility] on 12/01/22 with noted venous bleeding [...] - Replete hypokalemia Mirella Vergara MD, PhD [employer] Trauma, Acute Care Surgery, and Surgical Critical Care In-house Pager: [phone] [facility] - Health History and Physical Notes Date/Time Note Provider Source 2024-03-10 20:49:23 Pilar Garza History & Physical PCP: PATIENT DOES NOT [...] migraine. She was taken to ED in [place] after syncopal episode and was directed to return to [facility]. Bloody BM 3-4 days ago. Reports had exam for internal and external hemorrhoids in [place] - no hemorrhoids. Tried bentyl, pepcid, famotidine without success. Oral zofran does not help either. States that zofran, phenergan, tigan has not helped completely. Morphine has made it tolerable. Requesting to have IV benadryl to help her headaches. Patient was recently discharged on 03/05 from [facility] team, during this admission patient presented with [...] note, patient had been admitted twice to [facility] earlier this month for similar symptoms. However, [facility] was capped at the time of admission. Ba Manuel DO [employer] |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 02/28/24 [...] with the names or descriptions of any lrfh-vcr-qaosofi or supplements you are currently taking?: Yes [...] Ca Martinez FNP [facility] [phone] amarcus Renteria RN [facility] 2024-02-27 15:43:07 Addendum created 02/27/24 1543 by Blanca Leavitt CRNA Intraprocedure Meds edited NACR-NURSE PRODUCTION ENGINEER TRACK,CERTIFIED REGISTERED NURSE PRODUCTION ENGINEER TRACK [facility] 2024-02-27 12:01:14 Patient: Natanael Dyson Procedure Summary Date: 02/27/24 Room / Location: [id number] / ENDOSCOPY (CS) OR LOCATION Anesthesia Start: [...] status: acceptable Hydration status: acceptable AN-ANESTHESIOLOGY ANESTHESIOLOGIST [facility] 2024-02-27 07:19:18 Problem: Pain Goal: [...] Outcome: Progressing as expected Sheyla Sharma RN 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 Hold on DOS. Phentermine: Alert [facility] anesthesiologist SGLT2 Inhibitors: "gliflozins" to [...] N/A 07/21/2019 Surgeon: Prasanna Vargas MD; Location: [facility] Labor and Delivery OR Location TUBAL LIGATION N/A 07/21/2019 Surgeon: Prasanna Vargas MD; Location: [facility] Labor and [...] mask Anesthesia plan discussed with: patient or bank representative Post-Operative Analgesia: routine analgesia & antiemetics Recovery Plan: PACU Additional comments: Pt seen and examined. Chart/ interval hx/ lab data reviewed. NPO status confirmed. Anesthetic plan d/w pt and she understands/ wishes to proceed. Consent obtained. [facility] 2024-02-27 06:15:00 Rec'd report from sheyla CURRIE. Pt AAO, RA, no ISO,denies overnight vomiting, rec'd enema about 0500 and have since been having BMs per RN. Bobbi Du RN [facility] 2024-02-26 13:07:55 Problem: Falls, Risk [...] Not progressing as expected Tete Louis RN [facility] 2024-02-25 23:57:35 Problem: Pain Goal: [...] Outcome: Progressing as expected Cheryl Vásquez RN [facility] 2024-02-25 07:09:28 Problem: Pain Goal: [...] Adequate nutritional intake Outcome: Progressing as expected [facility] 2024-02-24 09:16:21 Uploaded to OnBase: [facility] &[facility] Report Bobbi morinl, PCP 02/24/2024 9:17 am T Bobbi Saini [facility] 2024-02-24 03:16:43 Problem: Pain Goal: Control of pain at or below patient's documented comfort goal Outcome: Progressing as expected Problem: Falls, Risk of Goal: Absence of falls Outcome: Progressing as expected Problem: Infection Risk Goal: Absence of infection Outcome: Progressing as expected Problem: Discharge Planning Goal: Adequate for discharge Outcome: Progressing as expected [facility] 2024-02-23 19:02:34 Problem: Pain Goal: Control of [...] Progressing as expected T Sheldon Montague RN [facility] 2024-02-22 22:09:02 Problem: Pain Goal: [...] Adequate nutritional intake Outcome: Progressing as expected [facility] 2024-02-22 19:25:41 Pt to [place] [id number] at this time via [facility] transport in stretcher. Patient in possession of all belongings. VSS, Respirations even and unlabored, AAOx4, NAD noted. [facility] [address] [facility] 2024-02-22 19:09:18 Patient requesting medication for anxiety. Team paged at this time. [facility] 2024-02-22 19:00:00 Report received from Brent CURRIE. Previous treatment and plan of care discussed. Patient resting in bed. Bed locked and in lowest position. Call light within reach. RR even and unlabored. VSS. A&Ox4. NAD noted. Awaiting transport upstairs. [facility] 2024-02-22 18:32:24 Report given to RN. Patient to be admitted to [facility]. Patient verbalized understanding of plan of care. Patient A&O x4. VSS. NAD noted. Resp even and non labored. Skin warm and dry. IV patent. Belongings to be sent with patient. Awaiting transportation. [facility] [address] [facility] 2024-02-22 17:45:00 Pt ambulatory to and from restroom with steady gait in NAD [facility] 2024-02-22 15:45:00 Pt laying in bed meds given per MAR waiting on bed place ment, pt A&Ox4 resp even and unlabored gcs 15 [facility] 2024-02-22 13:45:00 Pt resting comfortably, skin normal warm and dry, resp even and unlabored. VSS. Bed in lowest, locked position, side rails up. Call light within reach. Awaiting results. [facility] 2024-02-22 11:45:00 Pt sitting in bed A&Ox4 , skin normal warm and dry, resp even and unlabored. VSS. Bed in lowest, locked position, side rails up. Call light within reach. Awaiting results. [facility] 2024-02-22 09:45:00 Natanael Dyson is a 29 [...] will continue to monitor. Awaiting further orders. [facility] 2024-02-22 09:31:00 Natanael Dyson is a 29 year old female c/o brayan umbical pain x 1 week. Pain worsening x 4 days. Seen at hospital in [place]. Reports no relief with zofran. Also reports vomiting/diarrhea. Reports blood in stool and emesis. No fever. Denies urinary. Denies . Alla Richardson RN 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 History provided by: Patient lottery clerk used: No Past Medical History/Immunizations: Past Medical [...] N/A 07/21/2019 Surgeon: Prasanna Vargas MD; Location: [facility] Labor and Delivery OR Location TUBAL LIGATION N/A 07/21/2019 Surgeon: Prasanna Vargas MD; Location: [facility] Labor and [...] 0.01 - 0.07 10*3/uL COMP. METABOLIC PANEL (32985) - Abnormal NA 137 135 - 145 [...] LIMITED CBC WITH DIFF COMP. METABOLIC PANEL (66831) LIPASE URINALYSIS TROPONIN I TEST, SERUM O2 [...] Observation Condition -- Comment Treatment Team: KORI [[id number]] Discharge Medications: Patient's Medications START taking these medications No medications on file CONTINUE taking these medications which have NOT CHANGED ALBUTEROL 90 MCG/ACTUATION INHALER Inhale 2 Puffs every 6 (six) hours as needed for Wheezing or Shortness of Breath. BACLOFEN 10 MG TABLET Take 1 tablet by mouth every 6 (six) hours as needed. [id number]-VQID (FIORICET) 50-300-40 MG PER CAPSULE Take 1 [...] medications on file Follow-up: - Admitting to [facility] Electronically signed by: Adriana Piedra MD Internal Medicine PGY-3 [facility] Team Adriana Piedra MD 02/22/24 1425 Associated [...] persistent vomiting noted after. Case discussed with [facility] team. Plan made to admit for intractable vomiting and persistent abd pain. Pt had recent CT and allergic reaction. Will defer repeat CT to primary team if needed as she will need pre-treatment for allergy Diagnosis: Intractable vomiting Abdominal pain Plan: Admit to Internal Medicine Janett Lou INTERNAL MEDICINE [facility] 2023-08-27 16:08:07 TRANSITIONAL CARE MANAGEMENT ASSESSMENT 08/27/2023 Natanael Dyson [id number] Natanael Dyson is a 28 year old /White female was admitted on 08/23/[address] She was discharged on 08/24/23 with discharge disposition of HR- Routine Discharge. Admitting Physician: Roldan Walker Discharge Diagnosis: Cerebrovascular accident (CVA), unspecified mechanism [ Pt. Voiced her thoughts about [facility], not pleased with care provided. Plans to not f/u with [facility]. Pt. Inquired about results MY chart issue due to pt. Came in the hospital not alert. Instructed via the AVS it is under the other name Dominick Adamson 08/23/2023 - 08/24/2023 Neurology/Neurological Surgery ([address]). Pt. Access via the AVS page 4 there. Pt. Has gone under this chart Karis with no results found. Gave HIM contact number for further assistance. No linked episodes TCM Wxs-ixri-xn-face outreach documentation: Discharge Assessment Chart Assessed: 08/27/23 [...] [facility], [facility] [phone] [facility] 2023-08-26 13:35:01 TRANSITIONAL CARE MANAGEMENT ASSESSMENT 08/26/2023 Natanael Dyson [id number] Natanael Dyson is a 28 year old /White female was admitted on 08/23/[address] She was discharged on 08/24/23 with discharge disposition of HR- Routine Discharge. Admitting Physician: Roldan Walker Discharge Diagnosis: Cerebrovascular accident (CVA), unspecified mechanism [I63.9] No contact. No linked episodes TCM Nqa-jyjg-xk-face outreach documentation: Future Appointments: [facility] 2023-05-19 12:16:00 Pt given printed [...] with steady gait, in no apparent distress. ST ECONOMICS PROFESSOR [facility] 2023-05-19 08:50:00 Patient came in with complaints of epigastric pain that radiates to her left shoulder associated with nausea and vomiting since a couple of weeks now. Patient states that she was worked up in [place] ER 2 weeks ago and found nothing wrong, just referred to a GI doctor but she hasn't seen one because she has no insurance. NNE Ruiz RN [facility] 2023-01-16 10:56:45 TRANSITIONAL CARE MANAGEMENT ASSESSMENT 01/16/2023 Natanael Dyson [id number] Natanael Dyson is a 27 year old /White female was admitted on 01/11/[address] She was discharged on 01/15/23 with discharge disposition of HR- Routine Discharge. Admitting Physician: Kun Steele Discharge Diagnosis: Postprocedural intraabdominal abscess [T81.43XA] Pt. Verbalized understanding discharge instructions. Plans to f/u with pcp. Linked Episodes Type: Episode: Status: Noted: Resolved: Last update: Updated by: TRANSITION OF CARE tcm Active 01/16/2023 01/16/2023 10:56 AM Marlys Odell LVN Comments: TCM Doh-ukcu-yx-face outreach documentation: Discharge Assessment Chart Assessed: 01/16/23 [...] with the names or descriptions of any oiou-ryf-olvcjqh or supplements you are currently taking?: Yes [...] time?: No Future Appointments: Marlys Odell LVN [facility] 2023-01-15 18:18:34 Patient is cleared [...] as expected Goal: Reduction in pain sensation 01/15/2023 181 by Vero Crews RN Outcome: [...] Vero Crews RN Outcome: Progressing as expected I [facility] 2023-01-15 15:08:00 Called outpatient pharmacy and spoke to Maggi. Stated pharmacy will bring patient's medications to her room within 45min to an hour. T Vero Crews RN [facility] 2023-01-15 13:11:00 Problem: Infection Risk Goal: Absence of infection Outcome: Progressing as expected Problem: Pain Goal: Control of pain at or below patient's documented comfort goal Outcome: Progressing as expected Goal: Reduction in pain sensation Outcome: Progressing as expected Problem: Discharge Planning Goal: Adequate for discharge Outcome: Progressing as expected Goal: Effective communication Outcome: Progressing as expected [facility] 2023-01-15 06:25:22 Problem: Infection Risk Goal: Absence of infection Outcome: Progressing as expected Problem: Pain Goal: Control of pain at or below patient's documented comfort goal Outcome: Progressing as expected Goal: Reduction in pain sensation Outcome: Progressing as expected Problem: Discharge Planning Goal: Adequate for discharge Outcome: Progressing as expected Goal: Effective communication Outcome: Progressing as expected Katy Means RN [facility] 2023-01-14 09:27:52 Problem: Infection Risk Goal: Absence of infection Outcome: Progressing as expected Problem: Pain Goal: Control of pain at or below patient's documented comfort goal Outcome: Progressing as expected Goal: Reduction in pain sensation Outcome: Progressing as expected Problem: Discharge Planning Goal: Adequate for discharge Outcome: Progressing as expected Goal: Effective communication Outcome: Progressing as expected Charles Win RN [facility] 2023-01-13 22:20:47 Notified MD by bonny due to double dose of Tylenol being given. Per MD Brito no more Tylenol to be given for tonight. [facility] 2023-01-13 21:55:20 Problem: Infection Risk Goal: Absence of infection Outcome: Progressing as expected Problem: Pain Goal: Control of pain at or below patient's documented comfort goal Outcome: Progressing as expected Goal: Reduction in pain sensation Outcome: Progressing as expected Problem: Discharge Planning Goal: Adequate for discharge Outcome: Progressing as expected Goal: Effective communication Outcome: Progressing as expected [employer] 2023-01-13 08:20:43 Problem: Infection Risk Goal: Absence of infection Outcome: Progressing as expected Problem: Pain Goal: Control of pain at or below patient's documented comfort goal Outcome: Progressing as expected Goal: Reduction in pain sensation Outcome: Progressing as expected Problem: Discharge Planning Goal: Adequate for discharge Outcome: Progressing as expected Goal: Effective communication Outcome: Progressing as expected [employer] 2023-01-12 20:10:08 Problem: Infection Risk Goal: Absence of infection Outcome: Progressing as expected Problem: Pain Goal: Control of pain at or below patient's documented comfort goal Outcome: Progressing as expected Goal: Reduction in pain sensation Outcome: Progressing as expected Problem: Discharge Planning Goal: Adequate for discharge Outcome: Progressing as expected Goal: Effective communication Outcome: Progressing as expected [employer] 2023-01-12 09:28:38 Problem: Infection Risk Goal: Absence of infection Outcome: Progressing as expected Problem: Pain Goal: Control of pain at or below patient's documented comfort goal Outcome: Progressing as expected Goal: Reduction in pain sensation Outcome: Progressing as expected Problem: Discharge Planning Goal: Adequate for discharge Outcome: Progressing as expected Goal: Effective communication Outcome: Progressing as expected [employer] 2023-01-12 05:17:00 Problem: Infection Risk Goal: Absence of infection Outcome: Progressing as expected Problem: Pain Goal: Control of pain at or below patient's documented comfort goal Outcome: Progressing as expected Goal: Reduction in pain sensation Outcome: Progressing as expected Problem: Discharge Planning Goal: Adequate for discharge Outcome: Progressing as expected Goal: Effective communication Outcome: Progressing as expected [facility] 2023-01-12 01:43:06 Report to lisy CURRIE on 9C. Pt awaiting transport Melvin Villegas RN [facility] 2023-01-12 01:10:30 Attempted report, nurse unavailable, left callback number [facility] 2023-01-12 00:24:49 Surgery at bedside [facility] 2023-01-11 23:08:11 MD made aware of pt increased pain and nausea [facility] 2023-01-11 22:34:[address], warm blanket given [facility] 2023-01-11 22:18:[address] scan [facility] 2023-01-11 21:30:08 Natanael Dyson is a 27 [...] Denies vomiting, denies blood in stool. T [facility] 2023-01-11 21:03:38 Natanael Dyson is a 27 year old female here today c/o abdominal pain x 2 days. Pt denies N/V but reports diarrhea. Pt reports "9/10" pain at this time. Pt reports pain travels down right side abdomen. Pt is A&Ox4, NAD Noted. RR even/unlabored. 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 Due to the worsening discomfort patient has, for further evaluation at [facility]. Patient states that during her cholecystectomy she [...] when she sits up. Patient has discontinued [place] and anxiety medication due to concern for her liver. She is only used a heating pad for her symptoms with minimal improvement. History provided by: Patient lottery clerk used: No Past Medical History/Immunizations: Past Medical [...] N/A 07/21/2019 Surgeon: Prasanna Vargas MD; Location: [facility] Labor and Delivery OR Location TUBAL LIGATION N/A 07/21/2019 Surgeon: Prasanna Vargas MD; Location: [facility] Delivery OR Location Review [...] 0 - 220 U/L COMP. METABOLIC PANEL (82761) TOTAL BETA HCG ASSAY EXTRA TUBE ORANGE EXTRA TUBE LAV EKG: If EKG completed, see Procedure Note. Orders and Treatments: Orders Placed This Encounter Procedures CT ABDOMEN PELVIS W CONTRAST POCT TEST URINALYSIS LIPASE COMP. METABOLIC PANEL (61102) TOTAL BHCG (QUANTITATIVE) Orders Placed This Encounter [...] mouth every 6 (six) hours as needed. [id number]-DIYZ (FIORICET) 50-300-40 MG PER CAPSULE Take 1 [...] in the Gallbladder fossa, post-recent cholecystectomy in [place]. General surgery was consulted and admitted the patient for further workup and management. [facility] 2022-12-03 08:57:03 Patient has an appointment 12/12/22. Blayne Silva RN 12/03/2022 8:57 AM Blayne Silva RN [facility]
[2024-08-14 09:26] LABS: Specific Gravity 1.027 (1.005-1.030)
[2024-08-14 09:28] LABS: Specific Gravity 1.027 (1.005-1.030); Sqamous Epithelial <5 /HPF (None Seen); Urine Bacteria None Seen /HPF (<20); Urine Bilirubin NEGATIVE (Negative); Urine Blood 1+ (Negative); Urine Clarity Turbid (Clear); Urine Color Light-Yellow (Yellow); Urine Culture Reflex Order NOT NEEDED; Urine Glucose NEGATIVE (Negative); Urine Ketones NEGATIVE (Negative); Urine Micro Reflex YN NO BILL MICROSCOPIC; Urine Mucus 1+ /HPF (None Seen); Urine Nitrite NEGATIVE (Negative); Urine Protein TRACE (Negative); Urine Urobilinogen Normal (Normal); Urine WBC <5 /HPF (<5); Urine pH 6.5 (5.0-7.0)
--- NOTE | 2024-08-14 09:31 | ER ---
Nurse's Notes [facility] Name: Natanael Dyson Age: 29 yrs Sex: Female : 1995 Arrival Date: 08/14/2024 Time: 08:47 Bed 13 Private MD: Diagnosis: Low back pain, AGAINST MEDICAL ADVICE Presentation: 08/14 08:57 Chief complaint: Patient states: Burning with urination, pelvic pressure and low back jl7 pain x 4 days. Coronavirus screen: At this time, the client does not indicate any symptoms associated with coronavirus-19. Ebola Screen: No symptoms or risks identified at this time. Initial Sepsis Screen: Does the patient meet any 2 criteria? No. Patient's initial sepsis screen is negative. Does the patient have a suspected source of infection? No. Patient's initial sepsis screen is negative. Risk Assessment: Do you want to hurt yourself or someone else? Patient reports no desire to harm self or others. Onset of symptoms was August 11, 2024. 08:57 Method Of Arrival: Ambulatory [facility] 08:57 Acuity: THIERNO 3 jl7 Triage Assessment: 08:59 General: Appears in no apparent distress. uncomfortable, Behavior is cooperative. Pain: jl7 Complains of pain in low back area and pelvis Pain currently is 7 out of 10 on a pain scale. : Reports burning with urination. Musculoskeletal: Swelling absent. VP SCIENTIFIC: 08:59 LMP 08/02/2024, unknown jl7 Historical: - Allergies: 08:59 Compazine; jl7 08:59 Haldol; jl7 08:59 Iodine; jl7 08:59 Morphine; jl7 08:59 NSAIDS NON STEROIDAL ANTI INFLAMMATORY DRUG; jl7 08:59 Reglan; jl7 08:59 Toradol; jl7 - PMHx: 08:59 Anxiety; breast cancer; depressive disorder; Kidney stone; nephritis; jl7 - PSHx: 08:59 Cholecystectomy; Ligation of fallopian tube; jl7 - Immunization history:: Adult Immunizations unknown. - Infectious Disease History:: Denies. - Social history:: Smoking status: Patient denies any tobacco usage or history of. Screenin:15 [facility] ED Fall Risk Assessment (Adult) History of falling in the last 3 months, db including since admission No falls in past 3 months (0 pts) Confusion or Disorientation No (0 pts) Intoxicated or Sedated No (0 pts) Impaired Gait No (0 pts) Mobility Assist Device Used No (0 pt) Altered Elimination No (0 pt) Score/Fall Risk Level 0 - 2 = Low Risk Oriented to surroundings, Maintained a safe environment. Abuse screen: Denies threats or abuse. Denies injuries from another. Nutritional screening: No deficits noted. Tuberculosis screening: No symptoms or risk factors identified. Assessment: 09:15 Reassessment: Patient appears in no apparent distress at this time. Patient and/or db family updated on plan of care and expected duration. Pain level reassessed. Patient is alert, oriented x 3, equal unlabored respirations, skin warm/dry/pink. General: Appears in no apparent distress. comfortable, Behavior is calm, cooperative. Pain: Complains of pain in low back area. Neuro: Level of Consciousness is awake, alert, obeys commands, Oriented to person, place, time, situation. Respiratory: Airway is patent Respiratory effort is even, unlabored, Respiratory pattern is regular, symmetrical. : Reports. 09:29 Reassessment: PATIENT LEAVING. STATES THIS DOCTOR DOESN'T KNOW WHAT HE IS DOING I'M db LEAVING. NOTIFIED PROVIDER AND CHARGE NURSE. PATIENT SIGNED AMA FORM. Vital Signs: 08:57 BP 103 / 72; Pulse 97; Resp 17; Temp 97.8; Pulse Ox 100% ; Weight 58.97 kg; Height 5 jl7 ft. 1 in. ; Pain 7/10; 08:57 Body Mass Index 24.56 (58.97 kg, 154.94 cm) jl7 08:57 Pain Scale: Adult jl7 ED Course: 08:52 Patient arrived in ED. al6 08:52 Paula aMrk MD is Attending Physician. sp3 08:59 Triage completed. jl7 08:59 Arm band placed on right wrist. jl7 09:03 Mercedes Aaron, ROSEY is Primary Nurse. db 09:15 Urine collected: clean catch specimen, clear. db 09:19 Patient has correct armband on for positive identification. Bed in low position. Call db light in reach. Side rails up X 1. 09:29 Provided Education on: AMA AND TO RETURN IF SYMPTOMS CONTINUE AND OR WORSEN. db 09:29 No provider procedures requiring assistance completed. Patient did not have IV access db during this emergency room visit. Administered Medications: No medications were administered Medication: :15 VIS not applicable for this client. db Outcome: : AMA AMA form signed db : AMA Other PATIENT AMBULATORY WITH STEADY GATE. UNDERSTANDS RISKS OF LEAVING AMA. : Condition: stable : Instructed on follow up and referral plans. :40 Patient left the ED. db Signatures: Matty Bee RN RN jl7 Paula Mark MD MD sp3 Mercedes Aaron RN RN db Sarahi Hall6 Corrections: (The following items were deleted from the chart) 40 : Provided Education on: DISCHARGE AND FOLLOWUP. db db
--- NOTE | 2024-08-14 09:31 | EDPHYS ---
Physician Documentation [facility] Name: Natanael Dyson Age: 29 yrs Sex: Female : 1995 Arrival Date: 08/14/2024 Time: 08:47 Bed 13 Private MD: ED Physician Paula Mark HPI: 08/14 09:27 This 29 yrs old Female presents to ER via Ambulatory with complaints of Back Pain. sp3 09:27 29-year-old female with PMH above including kidney stones now presents to the ED with sp3 low back pain and concerns of possible infection. Last several CT scans demonstrated 3 mm stone without other formed stones. Patient denies any other symptoms including fever, chest pain, upper back pain, shortness of breath, syncope, near syncope, or any other signs or symptoms on ROS at this time. 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 - Infectious Disease History:: Denies. - Social history:: Smoking status: Patient denies any tobacco usage or history of. ROS: 09:27 Constitutional: Negative for fever, chills, and weight loss, ENT: Negative for injury, sp3 pain, and discharge, Neck: Negative for injury, pain, and swelling, Cardiovascular: Negative for chest pain, palpitations, and edema, Respiratory: Negative for shortness of breath, cough, wheezing, and pleuritic chest pain, MS/Extremity: Negative for injury and deformity, Skin: Negative for injury, rash, and discoloration, Neuro: Negative for headache, weakness, numbness, tingling, and seizure, Psych: Negative for depression, anxiety, suicide ideation, homicidal ideation, and hallucinations, Allergy/Immunology: Negative for hives, rash, and allergies, Endocrine: Negative for neck swelling, polydipsia, polyuria, polyphagia, and marked weight changes, 09:27 All other systems are negative, Exam: 09:27 Constitutional: This is a well developed, well nourished patient who is awake, alert, sp3 and in no acute distress. Head/Face: Normocephalic, atraumatic. Eyes: Pupils equal round and reactive to light, extra-ocular motions intact. Lids and lashes normal. Conjunctiva and sclera are non-icteric and not injected. Cornea within normal limits. Periorbital areas with no swelling, redness, or edema. Neck: Trachea midline, no thyromegaly or masses palpated, and no cervical lymphadenopathy. Supple, full range of motion without nuchal rigidity, or vertebral point tenderness. No Meningismus. Chest/axilla: Normal chest wall appearance and motion. Nontender with no deformity. No lesions are appreciated. Cardiovascular: Regular rate and rhythm with a normal S1 and S2. No gallops, murmurs, or rubs. Normal PMI, no JVD. No pulse deficits. Respiratory: Lungs have equal breath sounds bilaterally, clear to auscultation and percussion. No rales, rhonchi or wheezes noted. No increased work of breathing, no retractions or nasal flaring. Back: No spinal tenderness. No costovertebral tenderness. Full range of motion. Skin: Warm, dry with normal turgor. Normal color with no rashes, no lesions, and no evidence of cellulitis. MS/ Extremity: Pulses equal, no cyanosis. Neurovascular intact. Full, normal range of motion. Neuro: Awake and alert, GCS 15, oriented to person, place, time, and situation. Cranial nerves II-XII grossly intact. Motor strength 5/5 in all extremities. Sensory grossly intact. Cerebellar exam normal. Normal gait. Psych: Awake, alert, with orientation to person, place and time. Behavior, mood, and affect are within normal limits. 09:27 Abdomen/GI: Mild suprapubic pain. No peritoneal signs. Nonsurgical abdomen., Vital Signs: 08:57 BP 103 / 72; Pulse 97; Resp 17; Temp 97.8; Pulse Ox 100% ; Weight 58.97 kg; Height 5 jl7 ft. 1 in. ; Pain 7/10; 08:57 Body Mass Index 24.56 (58.97 kg, 154.94 cm) jl7 08:57 Pain Scale: Adult jl7 MDM: 08:54 Medical Screening Exam initiated sp3 09:26 Data reviewed: vital signs. sp3 09:29 ED course: 29-year-old female with flank and low back pain. 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 Given multiple recent workups, I told patient we will start with urinalysis and if positive add on other test as indicated. Patient was not happy with this and is now deciding to leave AMA.. 08/14 09:07 Order name: UAM; Complete Time: 09:29 jl7 08/14 09:07 Order name: Test, Urine; Complete Time: 09:29 jl7 Administered Medications: No medications were administered Disposition Summary: 08/14/24 09:30 Left Against Medical Advice Notes: Location: Home sp3 Problem: an acute exacerbation sp3 Symptoms: have worsened sp3 Condition: Stable sp3 Diagnosis - Low back pain, AGAINST MEDICAL ADVICE sp3 Followup: sp3 - With: Private Physician - When: Upon discharge from the Emergency Department - Reason: Continuance of care Followup: sp3 - With: Emergency Department - When: Upon discharge from the Emergency Department - 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
[2024-08-14 09:49] VITALS: BP 103/72; TEMP 97.8; O2SAT 100
== END 2024-08-14 09:40 | disposition left against medical advice (07) ==
LOC: ER 08:47
DX: M54.50 Low back pain, unspecified (principal); Z53.29 Procedure and treatment not carried out because of patient's decision for other reasons; Z88.5 Allergy status to narcotic agent; Z88.8 Allergy status to other drugs, medicaments and biological substances
CPT/HCPCS: 81001; 81025; 99283

== ENCOUNTER 2024-08-27 06:23 | Day surgery (SDC) | payer OTHER ==
[2024-08-27] MEDS: MIDAZOLAM HCL 2 MG/2 ML INJ ONE (08:38)
[2024-08-27] MEDS ORDERED: FENTANYL CITR 100 MCG/2 ML ONE (09:02)
[2024-08-27] MEDS ORDERED: propofoL 200 MG/20 ML VIAL IV ONE (09:02)
[2024-08-27] MEDS ORDERED: KETOROLAC 30 MG/ML INJ ONE (09:02)
[2024-08-27] MEDS ORDERED: LIDOCAINE 2% MPF 5 ML VIAL ONE (09:02)
[2024-08-27] MEDS ORDERED: ROCURONIUM 50 MG/5 ML VIAL IV ONE (09:02)
[2024-08-27] MEDS ORDERED: dexAMETHasone 10 MG/ML VIAL ONE (09:02)
[2024-08-27] MEDS ORDERED: ONDANSETRON 4 MG/2 ML VIAL ONE (09:02)
[2024-08-27] MEDS ORDERED: MIDAZOLAM HCL 2 MG/2 ML INJ ONE (09:02)
[2024-08-27] MEDS ORDERED: NS 0.9% VIAL 10 ML ONE (09:03)
[2024-08-27] MEDS ORDERED: DEXMEDETOMIDINE HCL 200 MCG/2 ML VIAL ONE (09:08)
[2024-08-27] MEDS: Ringers Lactate 1,000 ML IV ONE (09:48)
[2024-08-27] MEDS: BUPIVACAINE 0.5% PF 10 ML VIAL ONE (10:02)
[2024-08-27 10:05] LABS: Urine Specific Gravity/Preg 1.025 (1.005-1.030)
[2024-08-27] MEDS ORDERED: NEOSTIGMINE 1 MG/ML -10 ML VIAL ONE (10:08)
[2024-08-27] MEDS ORDERED: GLYCOPYRROLATE 0.2 MG/ML SYR ONE (10:08)
[2024-08-27] MEDS: HYDROMORPHONE HCL 1 MG/ML INJ ONE ×2 (10:55→11:05)
[2024-08-27] MEDS: FENTANYL CITR 100 MCG/2 ML ONE (11:15)
[2024-08-27] MEDS: HYDROCODONE/APAP 10/325 TAB ONE (12:00)
[2024-08-27 12:52] VITALS: TEMP 97.9
[2024-08-27 12:54] VITALS: BP 117/58; O2SAT 95
== END 2024-08-27 12:52 | disposition home or self-care (01) ==
LOC: OR 06:23
PROVIDERS: ATTEND Otolaryngology Facial Plastic Surgery
PROC: 0CBPXZZ Excision of Tonsils, External Approach (ICD-10-PCS; principal; 2024-08-27 08:30)
DX: J35.01 Chronic tonsillitis (principal)
CPT/HCPCS: 81025; 88304; 42826; A4216; J2704; J2710; J2003; J2250 ×2; J3010 ×2; J1100; J1171 ×2; J2405; J7120

== ENCOUNTER 2024-09-09 08:17 | Emergency (ER) | payer OTHER ==
--- OUTSIDE RECORDS SUMMARY | 2024-09-09 08:42 | XMS REPORT | Continuity of Care Document ---
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 1 dose, On 04/19/24 at 0815, Administer over 2-5 Minutes, 2 mL [facility] morpHINE (4 mg/mL) injection 4 mg 2023-05 14:15: 00 04-19 14:33 :00 No 4mg 4 mg, Slow IV Push, ONCE, 1 dose, On 04/19/24 at 0815, STAT [facility] traMADoL 50 mg tablet 2023-05 00:00: 00 04-27 05:59 :00 No [id number] 50mg Take 1 tablet by mouth every 8 (eight) hours as needed for Pain (scale 7-10) for up to 7 days. Indication s: acute pain [facility] polyethylen e glycol 3350 (MIRALAX) 17 gram powder 2023-05 00:00: 00 04-23 05:59 :00 No [id number] 1{packe t} Take 1 Packet by mouth in the morning and 1 Packet in the evening. Do all this for 3 days. [facility] morpHINE injection 2 mg 2023-05 20:00: 00 04-12 19:17 :00 No 2mg 2 mg, Slow IV Push, ONCE, 1 dose, On 04/12/24 at 1400, STAT [facility] acetaminoph en (OFIRMEV) IV piggyback 1,000 mg 2023-05 19:03: 00 04-12 19:31 :00 No 1000mg 1,000 mg, IV Piggyback, at 400 mL/hr Administer over 15 Minutes, ONCE, 1 dose, On 04/12/24 at 1315, Routine, Is the patient strict NPO and unable to tolerate oral medication s? Yes [facility] morpHINE injection 2 mg 2023-05 19:00: 00 04-12 18:09 :00 No 2mg 2 mg, Slow IV Push, ONCE, 1 dose, On Sat04/12/24 at 1300, STAT [facility] fentanyl PF (SUBLIMAZE (PF)) injection 50 mcg 2023-05 16:30: 00 04-12 16:26 :00 No 50ug 50 mcg, Slow IV Push, ONCE, 1 dose, On Sat04/12/24 at 1030, Routine [facility] fentanyl PF (SUBLIMAZE (PF)) injection 50 mcg 2023-05 15:45: 00 04-12 15:42 :00 No 50ug 50 mcg, Slow IV Push, ONCE, 1 dose, On Sat04/12/24 at 0945, Routine [facility] diphenhydrA MINE (BENADRYL) injection 25 mg 2023-05 14:18: 10 03-13 16:08 :09 No 25mg 25 mg, Intravenou s, Q6HPRN, Starting on Sat03/13/24 at 0918, Until Sat03/13/24 at 1108, Routine, Pain (scale 7-10) [facility] diazePAM (VALIUM) 10 mg tablet 2023-05 11:08: 09 Yes 10mg Take 1 tablet by mouth in the morning and 1 tablet in the evening. [facility] acetaminoph en (OFIRMEV) IV piggyback 1,000 mg 2023-05 07:15: 00 03-13 07:05 :00 No 1000mg 1,000 mg, IV Piggyback, at 400 mL/hr Administer over 15 Minutes, ONCE, 1 dose, On Sat03/13/24 at 0215, Routine, Is the patient strict NPO and unable to tolerate oral medication s? Yes [facility] methylpredn isolone sod succ (SOLU-MEDRO L) injection 44.375 mg 2023-05 04:15: 00 03-13 05:06 :00 No 1mg/kg 44.375 mg (rounded from 44.5 mg = 1 mg/kg ?44.5 kg), Intravenou s, ONCE, 1 dose, On Sat03/12/24 at 2315, 2 mL [facility] iopamidol (ISOVUE 370-500 mL) injection 80 mL 2023-05 03:16: 00 03-13 03:00 :00 No [id number] 80mL 80 mL, Intravenou s, ONCE, 1 dose, On Sat03/12/24 at 2230, Routine [facility] diphenhydrA MINE (BENADRYL) injection 100 mg 2023-05 03:00: 00 03-13 05:06 :00 No [id number] 100mg 100 mg, Slow IV Push, ONCE, 1 dose, On Sat03/12/24 at 2200, STAT [facility] budesonide (PULMICORT RESPULE) nebulizer solution 1 mg 2023-05 01:00: 00 Yes 1mg 1 mg, Inhalation , BID, First dose on Sat03/12/24 at 2000, Until Discontinu ed, Routine [facility] amitriptyli ne 25 mg tablet 2023-05 00:00: 00 Yes [id number] 25mg Take 1 tablet by mouth at bedtime. [facility] budesonide 0.5 mg/2 mL nebulizer solution 2023-05 00:00: 00 06-06 05:59 :00 No [id number] 1mg Inhale 4 mL in the morning and 4 mL in the evening. Do all this for 84 days. [facility] diphenhydrA MINE 25 mg tablet 2023-05 00:00: 00 03-21 05:59 :00 No [id number] 25mg Take 1 tablet by mouth every 6 (six) hours as needed for Allergies for up to 7 days. [facility] methylPREDN ISolone sod succ (SOLU-MEDRO L (PF)) injection 40 mg 2023-05 23:45: 00 03-13 01:24 :00 No 40mg 40 mg, Intravenou s, ONCE, 1 dose, On Sat03/12/24 at 1845, 1 mL [facility] diphenhydrA MINE (BENADRYL) injection 50 mg 2023-05 23:45: 00 03-13 01:23 :00 No 50mg 50 mg, Intravenou s, ONCE, 1 dose, On Sat03/12/24 at 1845, Routine [facility] methylPREDN ISolone sod succ (SOLU-MEDRO L (PF)) injection 40 mg 2023-05 20:45: 00 03-12 20:53 :00 No 40mg 40 mg, Intravenou s, ONCE, 1 dose, On Sat03/12/24 at 1545, 1 mL [facility] diphenhydrA MINE (BENADRYL) injection 25 mg 2023-05 20:30: 00 03-12 20:58 :00 No 25mg 25 mg, Intravenou s, ONCE, 1 dose, On Sat03/12/24 at 1545, Routine [facility] diphenhydrA MINE (BENADRYL) injection 25 mg 2023-05 16:30: 00 03-12 16:16 :00 No 25mg 25 mg, Intravenou s, ONCE, 1 dose, On Sat03/12/24 at 1130, Routine [facility] diazePAM (VALIUM) injection 2 mg 2023-05 15:45: 00 03-13 13:38 :00 No 2mg 2 mg, Slow IV Push, BID, First dose on Sat03/12/24 at 1045, Until Discontinu ed, Routine [facility] Potassium Bicarb-Citr ic Acid (EFFER-K) effervescen t tablet 40 mEq 2023-05 03:45: 00 03-12 03:18 :00 No 40meq 40 mEq, Oral, ONCE, 1 dose, On Sat03/11/24 at 2245, Routine [facility] amitriptyli ne (ELAVIL) tablet 25 mg 2023-05 02:00: 00 Yes 25mg 25 mg, Oral, QHS, First dose on Sat03/11/24 at 2100, Until Discontinu ed, Routine [facility] budesonide (PULMICORT RESPULE) nebulizer solution 0.25 mg 2023-05 20:30: 00 03-12 15:40 :27 No .25mg 0.25 mg, Inhalation , BID, First dose (after last modificati on) on Sat03/11/24 at 1530, Until Discontinu ed, Routine [facility] morpHINE injection 2 mg 2023-05 18:00: 00 03-11 18:18 :00 No 2mg 2 mg, Slow IV Push, ONCE, 1 dose, On Sat03/11/24 at 1300, Routine [facility] proMETHazin e (PHENERGAN) 12.5 mg in NS 50 mL IV piggyback (CNR) 2023-05 16:08: 36 03-13 06:15 :30 No 12.5mg 12.5 mg, IV Piggyback, at 200 mL/hr Administer over 15 Minutes, Q4HPRN, Starting on Sat03/11/24 at 1108, Until Sat03/13/24 at 0115, [place], Nausea and Vomiting (N/V) [facility] diphenhydrA MINE (BENADRYL) injection 25 mg 2023-05 15:45: 00 03-11 15:14 :00 No 25mg 25 mg, Intravenou s, ONCE, 1 dose, On Sat03/11/24 at 1045, Routine [facility] morphine (2 mg/mL) injection 4 mg 2023-05 13:44: 13 03-11 17:55 :50 No 4mg 4 mg, Slow IV Push, Q4HPRN, Starting on Sat03/11/24 at 0844, Until Sat03/11/24 at 1255, Routine, Pain (scale 7-10) [facility] magnesium sulfate in water 4 gram/50 mL (8 %) IV Piggyback 4 g 2023-05 13:00: 00 03-11 16:09 :00 No 4g 4 g, IV Piggyback, at 25 mL/hr Administer over 120 Minutes, ONCE, 1 dose, On Sat03/11/24 at 0800, Routine [facility] tetracyclin e (ACHROMYCIN ) capsule 500 mg 2023-05 13:00: 00 03-11 16:07 :08 No 500mg 500 mg, Oral, QID, 112 doses, First dose on Sat03/11/24 at 0800, Last dose on Sat04/07/24 at 2000, [place], Reason for Anti-Infec tive: Documented Infection, Documented Infection Site: Abdominal, Duration of Therapy: 14 days [facility] metroNIDAZO LE (FLAGYL) tablet 500 mg 2023-05 13:00: 00 03-11 16:07 :08 No 500mg 500 mg, Oral, QID, First dose on Sat03/11/24 at 0800, Until Discontinu ed, Routine, Reason for Anti-Infec tive: Documented Infection, Documented Infection Site: Abdominal, Duration of Therapy: 14 days [facility] bismuth subsalicyla te (PEPTO BISMOL) chewable tablet 524 mg 2023-05 13:00: 00 03-11 16:07 :08 No 524mg 524 mg, Oral, QID, First dose on Sat03/11/24 at 0800, Until Discontinu ed [facility] lactated ringers IV infusion 1,000 mL 2023-05 08:30: 00 03-11 16:29 :00 No 1000mL at 125 mL/hr, 1,000 mL, IV Infusion, CONTINUOUS , Starting on Sat03/11/24 at 0330, Until Sat03/11/24 at 1129, Routine [facility] trimethoben zamide (TIGAN) injection 100 mg 2023-05 05:12: 20 03-13 16:08 :09 No 100mg 100 mg, Intramuscu lar, Q6HPRN, Starting on Sat03/11/24 at 0012, Until Sat03/13/24 at 1108, Routine, Nausea and Vomiting (N/V), alternate with zofran [facility] ondansetron (ZOFRAN (PF)) injection 4 mg 2023-05 03:42: 41 03-11 16:10 :43 No 4mg 4 mg, Slow IV Push, Q6HPRN, Starting on Sat03/10/24 at 2242, Until Sat03/11/24 at 1110, [place], Nausea and Vomiting (N/V) [facility] pantoprazol e (PROTONIX) injection 40 mg 2023-05 03:30: 00 03-13 16:08 :09 No 40mg 40 mg, Slow IV Push, Q12H, First dose on Sat03/10/24 at 2230, Until Discontinu ed [facility] morpHINE injection 4 mg 2023-05 03:21: 30 03-11 13:44 :25 No 4mg 4 mg, Slow IV Push, Q4HPRN, Starting on Sat03/10/24 at 2221, Until Sat03/11/24 at 0844, Routine, Pain (scale 7-10) [facility] acetaminoph en (TYLENOL) tablet 650 mg 2023-05 03:21: 25 03-13 16:08 :09 No 650mg [facility] morpHINE injection 4 mg 2023-05 02:00: 00 03-11 01:10 :00 No 4mg 4 mg, Slow IV Push, ONCE, 1 dose, On Sat03/10/24 at 2100, STAT [facility] trimethoben zamide (TIGAN) injection 100 mg 2023-05 02:00: 00 03-11 02:05 :00 No 100mg 100 mg, Intramuscu lar, ONCE, 1 dose, On Sat03/10/24 at 2100, Routine [facility] morpHINE injection 4 mg 2023-05 21:30: 00 03-10 22:20 :00 No 4mg 4 mg, Slow IV Push, ONCE, 1 dose, On Sat03/10/24 at 1630, STAT [facility] proMETHazin e (PHENERGAN) 25 mg in NS 50 mL IV piggyback (CNR) 2023-05 21:00: 00 03-10 22:30 :00 No 25mg 25 mg, IV Piggyback, at 200 mL/hr Administer over 15 Minutes, ONCE, 1 dose, On Sat03/10/24 at 1600, [facility] diphenhydrA MINE (BENADRYL) injection 25 mg 2023-05 19:00: 00 03-10 19:12 :00 No 25mg 25 mg, Slow IV Push, ONCE, 1 dose, On Sat03/10/24 at 1400, [facility] ondansetron (ZOFRAN (PF)) injection 4 mg 2023-05 18:30: 00 03-10 18:34 :00 No 4mg 4 mg, Slow IV Push, ONCE, 1 dose, On Sat03/10/24 at 1330, [facility] diphenhydrA MINE:lidoca ine 2% viscous:maa lox 1:1:1 ([facility]) oral suspension 15 mL 2023-05 17:15: 00 03-10 18:34 :00 No 15mL 15 mL, Oral, ONCE, 1 dose, On Sat03/10/24 at 1215, Routine [facility] NaCl 0.9% (NS) bolus infusion 1,500 mL 2023-05 16:30: 00 03-11 00:19 :00 No 1500mL at 999 mL/hr, 1,500 mL, IV Infusion, ONCE, 1 dose, On Sat03/10/24 at 1130, [facility] morpHINE injection 4 mg 2023-05 16:30: 00 03-10 16:33 :00 No 4mg 4 mg, Slow IV Push, ONCE, 1 dose, On Sat03/10/24 at 1130, STAT [facility] ondansetron (ZOFRAN (PF)) injection 4 mg 2023-05 15:30: 00 03-10 15:54 :00 No 4mg 4 mg, Slow IV Push, ONCE, 1 dose, On Sat03/10/24 at 1030, [place] [facility] pantoprazol e (PROTONIX) EC tablet 40 mg 2023-05 01:00: 00 03-05 22:06 :08 No 40mg 40 mg, Oral, BID, First dose on Sat03/05/24 at 2000, Until Discontinu ed, Routine [facility] bismuth subsalicyla te (PEPTO BISMOL) chewable tablet 524 mg 2023-05 17:00: 00 03-05 22:06 :08 No 524mg 524 mg, Oral, QID, 56 doses, First dose on Sat03/05/24 at 1200, Last dose on Sat03/19/24 at 0800, Routine [facility] tetracyclin e (ACHROMYCIN ) capsule 500 mg 2023-05 13:00: 00 03-05 22:06 :08 No 500mg 500 mg, Oral, QID, 56 doses, First dose on Sat03/05/24 at 0800, Last dose on Sat03/18/24 at 2000, [place], Reason for Anti-Infec tive: Documented Infection, Documented Infection Site: Abdominal, Duration of Therapy: 14 days [facility] metroNIDAZO LE (FLAGYL) tablet 500 mg 2023-05 11:30: 00 03-05 22:06 :08 No 500mg 500 mg, Oral, Q8H, 42 doses, First dose on Sat03/05/24 at 0630, Last dose on Sat03/18/24 at 2200, Routine, Reason for Anti-Infec tive: Documented Infection, Documented Infection Site: Abdominal, Duration of Therapy: 14 days [facility] pantoprazol e (PROTONIX) injection 40 mg 2023-05 01:00: 00 03-05 16:38 :50 No 40mg 40 mg, Slow IV Push, Q12H, First dose on Sat03/04/24 at 2000, Until Discontinu ed [facility] metroNIDAZO LE 500 mg tablet 2023-05 00:00: 00 Yes [id number] 500mg Take 1 tablet by mouth 4 (four) times daily. [facility] tetracyclin e 500 mg capsule 2023-05 00:00: 00 Yes [id number] 500mg Take 1 capsule by mouth 4 (four) times daily. [facility] bismuth subsalicyla te 525 mg Tab 2023-05 00:00: 00 Yes [id number] 525mg Take 525 mg by mouth 4 (four) times daily. [facility] omeprazole 20 mg capsule 2023-05 00:00: 00 Yes [id number] 20mg Take 1 capsule by mouth in the morning and 1 capsule in the evening. [facility] ondansetron 4 mg disintegrat ing tablet 2023-05 00:00: 00 Yes [id number] 4mg Take 1 tablet by mouth every 8 (eight) hours as needed for Nausea and Vomiting (N/V). [facility] enoxaparin (LOVENOX) injection 40 mg 2023-05 22:00: 00 03-05 22:06 :08 No 40mg 40 mg, Subcutaneo us, DAILY, First dose on Sat03/04/24 at 1700, Until Discontinu ed, Routine [facility] hydrOXYzine (ATARAX) tablet 10 mg 2023-05 20:02: 48 03-05 22:06 :08 No 10mg 10 mg, Oral, Q6HPRN, Starting on Sat03/04/24 at 1502, Until Kathie 03/05/24 at 1706, Routine, Anxiety [facility] morphine (2 mg/mL) injection 4 mg 2023-05 19:15: 05 03-05 19:09 :51 No 4mg 4 mg, Slow IV Push, Q6HPRN, Starting on Sat03/04/24 at 1415, Until Kathie 03/05/24 at 1409, Routine, Pain (scale 7-10) [facility] proMETHazin e (PHENERGAN) 12.5 mg in NS 50 mL IV piggyback (CNR) 2023-05 19:13: 41 03-05 22:06 :08 No 12.5mg 12.5 mg, IV Piggyback, at 200 mL/hr Administer over 15 Minutes, Q4HPRN, Starting on Sat03/04/24 at 1413, Until Sat03/05/24 at 1706, Routine, N/V unresponsi ve to Ondansetro n [facility] ondansetron (ZOFRAN (PF)) injection 4 mg 2023-05 19:10: 57 03-05 22:06 :08 No 4mg 4 mg, Slow IV Push, Q6HPRN, Starting on Sat03/04/24 at 1410, Until Sat03/05/24 at 1706, Routine, Nausea and Vomiting (N/V) [facility] HYDROcodone -acetaminop hen (NORCO 5) tablet 1 tablet 2023-05 19:10: 38 03-05 22:06 :08 No 1{tbl} 1 tablet, Oral, Q6HPRN, Starting on Sat03/04/24 at 1410, Until Kathie 03/05/24 at 1706, Routine, Pain (scale 4-6) [facility] acetaminoph en (TYLENOL) tablet 650 mg 2023-05 19:10: 34 03-05 22:06 :08 No 650mg [facility] morphine (2 mg/mL) injection 4 mg 2023-05 16:15: 00 03-04 16:19 :00 No 4mg 4 mg, Slow IV Push, ONCE, 1 dose, On Sat03/04/24 at 1115, [place] [facility] ondansetron (ZOFRAN (PF)) injection 4 mg 2023-05 16:15: 00 03-04 16:19 :00 No 4mg 4 mg, Slow IV Push, ONCE, 1 dose, On Sat03/04/24 at 1115, [place] [facility] morphine (2 mg/mL) injection 4 mg 2023-05 13:15: 00 03-04 13:57 :00 No 4mg 4 mg, Slow IV Push, ONCE, 1 dose, On Sat03/04/24 at 0815, STAT [facility] pantoprazol e (PROTONIX) injection 40 mg 2023-05 13:15: 00 03-04 14:04 :00 No 40mg 40 mg, Slow IV Push, ONCE, 1 dose, On Sat03/04/24 at 0815 [facility] NaCl 0.9% (NS) bolus infusion 1,000 mL 2023-05 13:15: 00 03-04 16:51 :00 No 1000mL at 999 mL/hr, 1,000 mL, IV Infusion, ONCE, 1 dose, On Sat03/04/24 at 0815, [place] [facility] ondansetron (ZOFRAN (PF)) injection 4 mg 2023-05 12:15: 03-04 13:56 :00 No 4mg 4 mg, Slow IV Push, ONCE, 1 dose, On Sat03/04/24 at 0715, [place] [facility] escitalopra m oxalate 20 mg tablet 2023-05 00:00: 00 Yes 20mg Take 1 tablet by mouth in the morning. [facility] eszopiclone 3 mg tablet 2023-05 00:00: 00 Yes 3mg Take 1 tablet by mouth at bedtime. [facility] bismuth subsalicyla te 525 mg Tab 2023-05 00:00: 00 03-05 00:00 :00 No [id number] 525mg Take 525 mg by mouth 4 (four) times daily for 14 days. [facility] metroNIDAZO LE 500 mg tablet 2023-05 00:00: 00 03-05 00:00 :00 No [id number] 500mg Take 1 tablet by mouth 4 (four) times daily for 14 days. [facility] tetracyclin e 500 mg capsule 2023-05 00:00: 00 03-05 00:00 :00 No [id number] 500mg Take 1 capsule by mouth 4 (four) times daily for 14 days. [facility] omeprazole 20 mg capsule 2023-05 00:00: 00 03-05 00:00 :00 No [id number] 20mg Take 1 capsule by mouth in the morning and 1 capsule in the evening. Do all this for 14 days. [facility] pantoprazol e (PROTONIX) EC tablet 40 mg 2023-05 16:45: 00 02-26 23:59 :22 No 40mg 40 mg, Oral, BID, First dose (after last modificati on) on Kathie 02/27/24 at 1145, Until Discontinu ed, Routine [facility] lactated ringers IV infusion 2023-05 15:19: 00 02-26 15:26 :52 No IV Infusion, CONTINUOUS PRN, Starting on Kathie 02/27/24 at 1019, Until Kathie 02/27/24 at 1026, Routine, Intra-op [facility] simethicone (GAS RELIEF (SIMETHICON E)) 40 mg/0.6 mL drops 2023-05 14:57: 00 02-26 16:34 :28 No PRN, Starting on Kathie 02/27/24 at 0957, Until Kathie 02/27/24 at 1134, Routine, Intra-op [facility] PHENYLephri ne 1000 mcg/10 mL in 0.9% NaCl syringe 2023-05 14:50: 00 02-26 15:26 :52 No Intravenou s, ONCE INTRA PROCEDURE, Starting on Kathie 02/27/24 at 0950, Until Kathie 02/27/24 at 1026, Routine, Intra-op [facility] dexmedeTOMI Dine (PRECEDEX) injection 2023-05 14:27: 00 02-26 15:26 :52 No Intravenou s, ONCE INTRA PROCEDURE, Starting on Kathie 02/27/24 at 0927, Until Kathie 02/27/24 at 1026, Routine, Intra-op [facility] propofoL IV infusion 2023-05 14:26: 00 02-26 15:26 :52 No IV Infusion, ONCE INTRA PROCEDURE, Starting on Kathie 02/27/24 at 0926, Until Kathie 02/27/24 at 1026, Routine, Intra-op [facility] lidocaine 1% (XYLOCAINE) 100 mg/10 mL (1 %) injection 2023-05 14:26: 00 02-26 15:26 :52 No Intravenou s, ONCE INTRA PROCEDURE, Starting on Kathie 02/27/24 at 0926, Until Kathie 02/27/24 at 1026, Routine, Intra-op [facility] FENTanyl (PF) (SUBLIMAZE) injection 2023-05 14:26: 00 02-26 15:26 :52 No Intravenou s, ONCE INTRA PROCEDURE, Starting on Kathie 02/27/24 at 0926, Until [place]ie 02/27/24 at 1026, Routine, Intra-op [facility] midazolam (VERSED) injection 2023-05 14:24: 00 02-26 15:26 :52 No IV Push, ONCE INTRA PROCEDURE, Starting on Kathie 02/27/24 at 0924, Until Kathie 02/27/24 at 1026, Routine, Intra-op [facility] NaCl 0.9% (NS) IV infusion 2023-05 14:22: 00 02-26 15:26 :52 No IV Infusion, CONTINUOUS PRN, Starting on Kathie 02/27/24 at 0922, Until Kathie 02/27/24 at 1026, Routine, Intra-op [facility] sodium phosphates (READY-TO-U SE ENEMA) 19-7 gram/118 mL enema 1 Enema 2023-05 10:00: 00 02-26 10:05 :00 No 1{enema } 1 Enema, Rectal, ONCE, 1 dose, On Kathie 02/27/24 at 0500, Routine [facility] polyethylen e glycol 3350 powder 17 g 2023-05 01:00: 00 02-26 21:59 :19 No 17g 17 g, Oral, BID, First dose (after last modificati on) on Sat02/26/24 at 2000, Until Discontinu ed, Routine [facility] ondansetron 4 mg disintegrat ing tablet 2023-05 00:00: 00 03-05 00:00 :00 No [id number] 4mg Take 1 tablet by mouth every 8 (eight) hours as needed for Nausea and Vomiting (N/V). [facility] pantoprazol e 40 mg EC tablet 2023-05 00:00: 00 03-05 00:00 :00 No [id number] 40mg Take 1 tablet by mouth in the morning and 1 tablet in the evening. [facility] amitriptyli ne 25 mg tablet 2023-05 00:00: 00 03-04 00:00 :00 No [id number] 25mg Take 1 tablet by mouth at bedtime. [facility] acetaminoph en-codeine 300-30 mg tablet 2023-05 00:00: 00 02-26 00:00 :00 No [id number] 1{tbl} Take 1 tablet by mouth every 4 (four) hours as needed for Pain (scale 7-10) for up to 7 days. Indication s: acute pain [facility] simethicone (GAS RELIEF (SIMETHICON E)) chewable tablet 80 mg 2023-05 23:00: 00 02-26 21:59 :19 No 80mg 80 mg, Oral, PC+HS, First dose on Sat02/26/24 at 1800, Until Discontinu ed, Routine [facility] morphine (2 mg/mL) injection 2 mg 2023-05 20:22: 36 02-26 21:59 :19 No 2mg 2 mg, Slow IV Push, Q4HPRN, Starting on Sat02/26/24 at 1522, Until Akthie 02/27/24 at 1659, Routine, Pain (scale 4-6) [facility] morphine (2 mg/mL) injection 4 mg 2023-05 20:22: 32 02-26 21:59 :19 No 4mg 4 mg, Slow IV Push, Q4HPRN, Starting on Sat02/26/24 at 1522, Until Sat02/27/24 at 1659, Routine, Pain (scale 7-10) [facility] LORazepam (ATIVAN) injection 0.5 mg 2023-05 18:39: 21 02-26 21:59 :19 No .5mg 0.5 mg, Slow IV Push, Q6HPRN, Starting on Sat02/26/24 at 1339, Until Sat02/27/24 at 1659, Routine, Anxiety [facility] bisacodyL (DULCOLAX) suppository 10 mg 2023-05 18:17: 00 02-25 18:47 :00 No 10mg 10 mg, Rectal, ONCE NOW, 1 dose, On Sat02/26/24 at 1330, Routine [facility] acetaminoph en (OFIRMEV) IV piggyback 1,000 mg 2023-05 15:30: 00 02-25 15:03 :00 No 1000mg 1,000 mg, IV Piggyback, at 400 mL/hr Administer over 15 Minutes, ONCE, 1 dose, On Sat02/26/24 at 1030, Routine, Is the patient strict NPO and unable to tolerate oral medication s? Yes [facility] bisacodyL (DULCOLAX) tablet 5 mg 2023-05 14:30: 00 02-26 21:59 :19 No 5mg 5 mg, Oral, DAILY, First dose on Sat02/26/24 at 0930, Until Discontinu ed, Routine [facility] amitriptyli ne (ELAVIL) tablet 25 mg 2023-05 02:00: 00 02-26 23:59 :22 No 25mg 25 mg, Oral, QHS, First dose on Sat02/25/24 at 2100, Until Discontinu ed, Routine [facility] morphine (2 mg/mL) injection 4 mg 2023-05 18:49: 53 02-25 14:28 :08 No 4mg 4 mg, Slow IV Push, Q4HPRN, Starting on Sat02/25/24 at 1349, Until Sat02/26/24 at 0928, Routine, [facility] ([facility] 7-10) [facility] 2 mg 2023-05 18:49: 15 02-25 14:28 :08 No 2mg 2 mg, Slow IV Push, Q4HPRN, Starting on Sat02/25/24 at 1349, Until Sat02/26/24 at 0928, Routine, Pain (scale 7-10) [facility] gadobenate dimeglumine (MULTIHANCE -10 mL) injection 9.08 mL 2023-05 17:30: 00 02-24 17:30 :00 No [id number] .2mL/kg 9.08 mL (0.2 mL/kg ?45.4 kg), Intravenou s, ONCE, 1 dose, On Sat02/25/24 at 1230, Routine [facility] LORazepam (ATIVAN) injection 1 mg 2023-05 17:00: 00 02-24 16:25 :00 No 1mg 1 mg, Slow IV Push, ONCE, 1 dose, On Sat02/25/24 at 1200, STAT [facility] polyethylen e glycol 3350 powder 17 g 2023-05 16:00: 00 02-25 14:24 :01 No 17g 17 g, Oral, DAILY, First dose on Sat02/25/24 at 1100, Until Discontinu ed, [facility]ine [facility] lact[facility]ers [facility] infusion 1,000 mL 2023-05 13:15: 00 02-26 21:59 :19 No 1000mL at 125 mL/hr, 1,000 mL, IV Infusion, CONTINUOUS , Starting on Sat02/25/24 at 0815, Until Kathie 02/27/24 at 1659, Routine [facility] potassium chloride in water (KCL) 20 mEq/100 mL IV infusion 20 mEq 2023-05 13:00: 00 02-24 13:30 :00 No 20meq 20 mEq, IV Infusion, at 50 mL/hr Administer over 2 Hours, ONCE, 1 dose, On Sat02/25/24 at 0800, Routine [facility] melatonin (MELATIN) tablet 3 mg 2023-05 02:00: 00 02-26 21:59 :19 No 3mg 3 mg, Oral, QHS, First dose on Sat02/24/24 at 2100, Until Discontinu ed, Routine [facility] lactated ringers IV infusion 500 mL 2023-05 19:30: 00 02-24 09:54 :00 No 500mL at 999 mL/hr, 500 mL, IV Infusion, ONCE, 1 dose, On Sat02/24/24 at 1430, Routine [facility] Lidocaine (LIDOCARE) 4 % patch 1 Patch 2023-05 18:00: 00 02-24 05:15 :00 No 1{patch } 1 Patch, Topical, Administer over 12 Hours, ONCE, 1 dose, On Sat02/24/24 at 1300, Routine [facility] LORazepam (ATIVAN) injection 0.5 mg 2023-05 12:25: 30 02-25 18:39 :43 No .5mg 0.5 mg, Slow IV Push, Q6HPRN, Starting on Sat02/24/24 at 0725, Until Sat02/26/24 at 1339, Routine, Anxiety, Agitation [facility] diphenhydrA MINE (BENADRYL) injection 25 mg 2023-05 01:40: 29 02-23 14:54 :01 No 25mg 25 mg, Intravenou s, Q6HPRN, Starting on Sat02/23/24 at 2040, Until Sat02/24/24 at 0954, Routine, Nausea and Vomiting (N/V) [facility] LORazepam (ATIVAN) injection 0.5 mg 2023-05 01:39: 00 02-23 02:48 :00 No .5mg 0.5 mg, Slow IV Push, ONCE, 1 dose, On Sat02/23/24 at 2045, Routine [facility] diphenhydrA MINE (BENADRYL) injection 25 mg 2023-05 14:19: 13 02-23 01:14 :28 No 25mg 25 mg, Intravenou s, Q6HPRN, Starting on 02/23/24 at 0919, Until 02/23/24 at 2014, Routine, Nausea and Vomiting (N/V) [facility] ondansetron (ZOFRAN (PF)) injection 4 mg 2023-05 14:18: 38 02-26 21:59 :19 No 4mg 4 mg, Slow IV Push, Q6HPRN, Nausea and Vomiting (N/V), Starting on 02/23/24 at 0918, Doses of ondansetro n 16 mg and above need to be administer ed via IV piggyback. For Dose >=24mg ECG monitoring is advisable. [facility] pantoprazol e (PROTONIX) injection 40 mg 2023-05 11:53: 00 02-25 19:46 :39 No 40mg 40 mg, Slow IV Push, Q24H, First dose (after last modificati on) on Sat02/23/24 at 0700, Until Discontinu ed [facility] cariprazine (VRAYLAR) 1.5 mg capsule 2023-05 09:24: 25 Yes 1.5mg Take 1 capsule by mouth in the morning. [facility] LORazepam 0.5 mg tablet 2023-05 09:24: 25 Yes .5mg Take 1 tablet by mouth. [facility] diphenhydrA MINE (BENADRYL) injection 25 mg 2023-05 03:57: 18 02-22 14:19 :23 No 25mg 25 mg, Intravenou s, Q4HPRN, Starting on 02/22/24 at 2257, Until 02/23/24 at 0919, Routine, Nausea and Vomiting (N/V) [facility] heparin (porcine) injection 5,000 Units 2023-0513 01:00: 00 02-26 21:59 :19 No 5000U 5,000 Units, Subcutaneo us, Q12H, First dose on 02/22/24 at 2000, Until Discontinu ed, Routine [facility] morphine (2 mg/mL) injection 4 mg 2023-05 19:33: 18 02-24 15:57 :38 No 4mg 4 mg, Slow IV Push, Q4HPRN, Starting on 02/22/24 at 1433, Until 02/25/24 at 1057, Routine, Pain (scale 7-10) [facility] proMETHazin e (PHENERGAN) 25 mg in NS 50 mL IV piggyback (CNR) 2023-05 19:33: 05 02-22 14:19 :00 No 25mg 25 mg, IV Piggyback, at 200 mL/hr Administer over 15 Minutes, Q4HPRN, Starting on 02/22/24 at 1433, Until 02/23/24 at 0919, [place], Nausea and Vomiting (N/V) [facility] metoprolol tartrate 50 mg tablet 2023-05 19:26: 59 02-26 00:00 :00 No 50mg Take 1 tablet by mouth in the morning and 1 tablet in the evening. [facility] escitalopra m oxalate (LEXAPRO) 10 mg tablet 2023-05 19:26: 59 02-26 00:00 :00 No 10mg Take 1 tablet by mouth in the morning. [facility] morphine (2 mg/mL) injection 4 mg 2023-05 17:45: 00 02-21 18:20 :00 No 4mg 4 mg, Slow IV Push, ONCE, 1 dose, On 02/22/24 at 1245, STAT [facility] proMETHazin e (PHENERGAN) 25 mg in NS 50 mL IV piggyback (CNR) 2023-05 16:45: 00 02-21 17:33 :00 No 25mg 25 mg, IV Piggyback, at 200 mL/hr Administer over 15 Minutes, ONCE, 1 dose, On 02/22/24 at 1145, [facility] morphine (2 mg/mL) injection 4 mg 2023-05 16:00: 00 02-21 16:06 :00 No 4mg 4 mg, Slow IV Push, ONCE, 1 dose, On 02/22/24 at 1100, STAT [facility] famotidine (PEPCID (PF)) injection 20 mg 2023-05 15:00: 00 02-21 15:35 :00 No 20mg 20 mg, Slow IV Push, ONCE, 1 dose, On 02/22/24 at 1000, [facility] ondansetron (ZOFRAN (PF)) injection 4 mg 2023-05 15:00: 00 02-21 15:34 :00 No 4mg 4 mg, Slow IV Push, ONCE, 1 dose, On 02/22/24 at 1000, [facility] NaCl 0.9% (NS) bolus infusion 1,000 mL 2023-05 15:00: 00 02-21 18:06 :00 No 1000mL at 999 mL/hr, 1,000 mL, IV Infusion, ONCE, 1 dose, On 02/22/24 at 1000, STAT [facility] buPROPion XL 150 mg 24 hr tablet 01-22 00:00: 00 Yes 150mg Take 1 tablet by mouth every morning. [facility] cholestyram ine 4 gram powder 01-20 00:00: 00 Yes MIX AND DRINK 1 SCOOP BY MOUTH DAILY [facility] busPIRone 7.5 mg tablet 01-19 00:00: 00 Yes 7.5mg Take 1 tablet by mouth in the morning and 1 tablet in the evening. [facility] metoprolol tartrate 50 mg tablet 08-25 11:55: 42 Yes 50mg Take 1 tablet by mouth in the morning and 1 tablet in the evening. [facility] escitalopra m oxalate (LEXAPRO) 10 mg tablet 08-25 11:55: 42 Yes 10mg Take 1 tablet by mouth in the morning. [facility] divalproex ER 250 mg 24 hr tablet 08-23 00:00: 00 11-22 04:59 :00 No [id number] 250mg Take 1 tablet by mouth in the morning and 1 tablet in the evening. Do all this for 90 days. [facility] acetaminoph en-codeine 300-30 mg tablet 08-23 00:00: 00 08-31 04:59 :00 No [id number] 1{tbl} Take 1 tablet by mouth every 6 (six) hours as needed for Pain (scale 4-6) or Pain (scale 7-10) for up to 7 days. Indication s: acute pain [facility] cefTRIAXone (ROCEPHIN) 1,000 mg in NaCl 0.9% (NS) 100 mL MINI-BAG 05-19 16:45: 00 05-19 17:24 :00 No 1000mg 1,000 mg, IV Piggyback, ONCE, 1 dose, On 05/19/23 at 1045, Administer over 30 Minutes, 100 mL
Reas on for Anti-Infec tive: Documented Infection< br>Documen renata Infection Site: Urine
D uration of Therapy: Other (see Comments) [facility] morpHINE (4 mg/mL) injection 4 mg 05-19 16:45: 00 05-19 16:53 :00 No 4mg 4 mg, Slow IV Push, ONCE, 1 dose, On 05/19/23 at 1045, STAT [facility] NaCl 0.9% (NS) bolus infusion 1,000 mL 05-19 16:00: 00 05-19 17:00 :00 No 1000mL at 999 mL/hr, 1,000 mL, IV Infusion, ONCE, 1 dose, On 05/19/23 at 1000, [place] [facility] iopamidol (ISOVUE 370-500 mL) injection 80 mL 05-19 15:50: 00 05-19 16:15 :00 No [id number] 80mL 80 mL, Intravenou s, ONCE, 1 dose, On 05/19/23 at 1015, Routine [facility] dicyclomine (BENTYL) tablet 20 mg 05-19 15:45: 00 05-19 16:09 :00 No 20mg 20 mg, Oral, ONCE, 1 dose, On 05/19/23 at 0945, [facility] ondans[facility] (ZOFRAN (PF)) injection 4 mg 05-19 15:15: 00 05-19 15:50 :00 No 4mg 4 mg, Slow IV Push, ONCE, 1 dose, On 05/19/23 at 0915, [facility] maalox:diph enhydrAMINE :lidocaine 2 % viscous 1:1:1 ([facility]) oral suspension 15 mL 05-19 15:15: 00 05-19 15:49 :00 No 15mL 15 mL, Oral, ONCE, 1 dose, On 05/19/23 at 0915, Routine [facility] famotidine (PEPCID (PF)) injection 20 mg 05-19 15:15: 00 05-19 15:51 :00 No 20mg 20 mg, Slow IV Push, ONCE, 1 dose, On 05/19/23 at 0915, [facility] ondansetron 4 mg disintegrat ing tablet 05-19 00:00: 00 02-26 00:00 :00 No [id number] 4mg Take 1 tablet by mouth every 8 (eight) hours as needed for Nausea and Vomiting (N/V). [facility] sucralfate 1 gram tablet 05-19 00:00: 00 06-19 05:59 :00 No [id number] 1g Take 1 tablet by mouth before meals and at bedtime for 30 days. [facility] pantoprazol e 40 mg EC tablet 05-19 00:00: 00 06-19 05:59 :00 No [id number] 40mg Take 1 tablet by mouth in the morning for 30 days. [facility] cefdinir 300 mg capsule 05-19 00:00: 00 05-27 05:59 :00 No [id number] 300mg Take 1 capsule by mouth every 12 (twelve) hours for 7 days. [facility] morpHINE (2 mg/mL) injection 2 mg 01-15 19:15: 00 01-15 18:49 :00 No 2mg 2 mg, Slow IV Push, ONCE, 1 dose, On Sat01/15/23 at 1415, Routine [facility] ondansetron (ZOFRAN) tablet 4 mg 01-15 18:15: 01-15 22:02 :00 No 4mg 4 mg, Oral, ONCE, 1 dose, On Sat01/15/23 at 1315, Routine [facility] ondansetron 4 mg tablet 01-15 00:00: 00 02-26 00:00 :00 No [id number] 4mg Take 1 tablet by mouth every 8 (eight) hours as needed for Nausea and Vomiting (N/V). [facility] HYDROcodone -acetaminop hen 5-325 mg tablet 01-15 00:00: 00 01-23 04:59 :00 No [id number] 1{tbl} Take 1 tablet by mouth every 4 (four) hours as needed for Pain (scale 4-6) for up to 7 days. Indication s: acute pain [facility] morpHINE (2 mg/mL) injection 2 mg 01-14 16:11: 23 01-15 11:49 :59 No 2mg 2 mg, Slow IV Push, Q4HPRN, Starting on Sat01/14/23 at 1111, Until Sat01/15/23 at 0649, Routine, Pain (scale 7-10) [facility] methocarbam oL (ROBAXIN) tablet 500 mg 01-14 13:00: 00 Yes 500mg 500 mg, Oral, QID, First dose on Sat01/14/23 at 0800, Until Discontinu ed, Routine [facility] celecoxib (CELEBREX) capsule 100 mg 01-14 13:00: 00 Yes 100mg 100 mg, Oral, BID MEALS, First dose on Sat01/14/23 at 0800, Until Discontinu ed, Routine [facility] gabapentin (NEURONTIN) capsule 300 mg 01-14 01:30: 00 Yes 300mg 300 mg, Oral, TID, First dose on [place] 01/13/23 at 2030, Until Discontinu ed, Routine [facility] acetaminoph en (TYLENOL) tablet 1,000 mg 01-14 01:30: 00 Yes 1000mg 1,000 mg, Oral, Q8H, First dose (after last modificati on) on [place] 01/13/23 at 2030, Until Discontinu ed, Routine [facility] scopolamine transdermal (TRANSDERM- SCOP) patch 1.5 mg 01-13 00:30: 00 Yes 1.5mg 1.5 mg, Topical, Administer over 72 Hours, Q72H, First dose on 01/12/23 at 1930, Until Discontinu ed, Routine [facility] enoxaparin (LOVENOX) injection 40 mg 01-12 22:00: 00 Yes 40mg 40 mg, Subcutaneo us, DAILY, First dose on 01/12/23 at 1700, Until Discontinu ed, Routine [facility] FENTanyl PF (SUBLIMAZE (PF)) injection 100 mcg 01-12 20:30: 00 01-12 20:30 :00 No [id number] 100ug 100 mcg, Slow IV Push, ONCE, 1 dose, On 01/12/23 at 1530, Routine [facility] proMETHazin e (PHENERGAN) 25 mg in NS 50 mL IV piggyback (CNR) 01-12 17:11: 31 01-15 14:12 :44 No 25mg 25 mg, IV Piggyback, at 200 mL/hr Administer over 15 Minutes, Q4HPRN, Starting on Sat01/12/23 at 1211, Until Tu01/15/23 at 0912, Routine, Nausea and Vomiting (N/V) [facility] piperacilli n-tazobacta m (ZOSYN) 3.375 g [...] br>Duratio n of Therapy: 7 days [facility] pantoprazol e (PROTONIX) EC tablet 40 mg 01-12 14:00: 00 Yes 40mg 40 mg, Oral, DAILY, First dose on Sat01/12/23 at 0900, Until Discontinu ed, Routine [facility] KCL (KLOR-CON M20) tablet 40 mEq 01-12 09:30: 00 01-12 09:25 :00 No 40meq 40 mEq, Oral, ONCE, 1 dose, On Sat01/12/23 at 0430, Routine [facility] diphenhydrA MINE (BENADRYL) tablet 25 mg 01-12 08:31: 43 Yes 25mg 25 mg, Oral, QHSPRN, Starting on Sat01/12/23 at 0331, Until Discontinu ed, Routine, Itching, Sleep [facility] lactated ringers IV infusion 1,000 mL 01-12 08:15: 00 01-15 11:48 :29 No 1000mL at 50 mL/hr, 1,000 mL, IV Infusion, CONTINUOUS , Starting on Sat01/12/23 at 0315, Until Sat01/15/23 at 0648, Routine [facility] piperacilli n-tazobacta m (ZOSYN) 3.375 g in NaCl 0.9% (NS) 100 mL MINI-BAG 01-12 06:45: 00 01-12 08:43 :00 No 3.375g 3.375 g, IV Piggyback, ONCE, 1 dose, On 01/12/23 at 0145, Administer over 30 Minutes, 100 mL
Reas on for Anti-Infec tive: Documented Infection< br>Documen renata Infection Site: Abdominal< br>Duratio n of Therapy: 7 days [facility] lactated ringers IV infusion 1,000 mL 01-12 06:00: 00 01-12 08:13 :38 No 1000mL at 100 mL/hr, 1,000 mL, IV Infusion, CONTINUOUS , Starting on 01/12/23 at 0100, Until 01/12/23 at 0313, Routine [facility] morpHINE (4 mg/mL) injection 4 mg 01-12 05:49: 22 01-14 05:48 :22 No 4mg 4 mg, Slow IV Push, Q4HPRN, Starting on 01/12/23 at 0049, Until 01/14/23 at 0048, Routine, Pain (scale 7-10) [facility] HYDROcodone -acetaminop hen (NORCO 5) 5-325 mg tablet 1 tablet 01-12 05:49: 18 Yes 1{tbl} 1 tablet, Oral, Q4HPRN, Starting on 01/12/23 at 0049, Until Discontinu ed, Routine, Pain (scale 4-6) [facility] ondansetron (ZOFRAN (PF)) injection 4 mg 01-12 05:49: 11 01-15 17:31 :12 No 4mg 4 mg, Slow IV Push, Q6HPRN, Starting on 01/12/23 at 0049, Until 01/15/23 at 1231, Routine, Nausea and Vomiting (N/V) [facility] ondansetron (ZOFRAN (PF)) injection 4 mg 01-12 04:45: 00 01-12 04:45 :00 No 4mg 4 mg, Slow IV Push, ONCE, 1 dose, On Sat01/11/23 at 2345, [place] [facility] morpHINE (4 mg/mL) injection 4 mg 01-12 04:45: 00 01-12 04:45 :00 No 4mg 4 mg, Slow IV Push, ONCE, 1 dose, On Sat01/11/23 at 2345, STAT [facility] proMETHazin e (PHENERGAN) 25 mg in NS 50 mL IV piggyback (CNR) 01-12 04:45: 00 01-12 06:00 :00 No 25mg 25 mg, IV Piggyback, at 200 mL/hr Administer over 15 Minutes, ONCE, 1 dose, On Sat01/11/23 at 2345, [place] [facility] iopamidol (ISOVUE 370-500 mL) injection 80 mL 01-12 03:33: 00 01-12 03:25 :00 No [id number] 80mL 80 mL, Intravenou s, ONCE, 1 dose, On Sat01/11/23 at 2245, Routine [facility] maalox:diph enhydrAMINE :lidocaine 2 % viscous 1:1:1 ([facility]) oral suspension 15 mL 01-12 03:30: 00 01-12 03:07 :00 No 15mL 15 mL, Oral, ONCE, 1 dose, On Sat01/11/23 at 2230, Routine [facility] morpHINE (4 mg/mL) injection 4 mg 01-12 03:30: 00 01-12 03:05 :00 No 4mg 4 mg, Slow IV Push, ONCE, 1 dose, [facility]01/11/23 at 2230[facility] NaCl 0.9% (NS) bolus infusion 1,000 mL 01-12 03:30: 00 01-12 03:04 :00 No 1000mL at 999 mL/hr, 1,000 mL, IV Infusion, ONCE, 1 dose, On Sat01/11/23 at 2230, [facility] ondansetron (ZOFRAN (PF)) injection 4 mg 01-12 03:00: 00 01-12 03:05 :00 No 4mg 4 mg, Slow IV Push, ONCE, 1 dose, On Sat01/11/23 at 2200, [facility] ibuprofen (IBU) tablet 600 mg 11-21 22:15: 00 11-21 21:44 :00 No 600mg 600 mg, Oral, ONCE, 1 dose, On Sat11/21/22 at 1715, [facility] butalbital- acetaminoph en-caff (ESGIC) 50-325-40 mg tablet 1 tablet 11-21 21:30: 00 11-21 21:39 :00 No 1{tbl} 1 tablet, Oral, ONCE, 1 dose, On Sat11/21/22 at 1630, [facility] ciprofloxac in HCl 500 mg tablet 11-11 00:00: 00 02-26 00:00 :00 No TAKE 1 TABLET BY MOUTH EVERY 12 HOURS FOR 7 DAYS [facility] methocarbam oL 750 mg tablet 11-07 00:00: 00 Yes 750mg Take 1 tablet by mouth 2 (two) times daily as needed. [facility] methocarbam oL 750 mg tablet 11-07 00:00: 00 02-26 00:00 :00 No 1{tbl} Take 1 tablet by mouth 2 (two) times daily as needed. [facility] baclofen 10 mg tablet 10-27 00:00: 00 Yes 10mg Take 1 tablet by mouth every 6 (six) hours as needed. [facility] baclofen 10 mg tablet 10-27 00:00: 00 02-26 00:00 :00 No 1{tbl} Take 1 tablet by mouth every 6 (six) hours as needed. [facility] tiZANidine 4 mg tablet 10-24 00:00: 00 Yes 4mg Take 1 tablet by mouth every 6 (six) hours as needed. [facility] tiZANidine 4 mg tablet 2022-0 6-14 00:00: 00 02-26 00:00 :00 No 1{tbl} Take 1 tablet by mouth every 6 (six) hours as needed. [facility] traZODone 50 mg tablet 2022-0 6-12 00:00: 00 Yes 50mg Take 1 tablet by mouth at bedtime. [facility] traZODone 50 mg tablet 2022-0 6-12 00:00: 00 02-26 00:00 :00 No 1{tbl} Take 1 tablet by mouth at bedtime. [facility] hydrOXYzine 50 mg tablet 0 -23 00:00: 00 Yes 50mg Take 1 tablet by mouth every 6 (six) hours as needed. [facility] hydrOXYzine 50 mg tablet 0 23 00:00: 00 02-26 00:00 :00 No 1{tbl} Take 1 tablet by mouth every 6 (six) hours as needed. [facility] mirtazapine 15 mg tablet 2022-0 5-12 00:00: 00 02-26 00:00 :00 No 15mg Take 1 tablet by mouth at bedtime. [facility] meloxicam 15 mg tablet 0 5-09 00:00: 00 Yes 15mg Take 1 tablet by mouth in the morning. [facility] meloxicam 15 mg tablet 2022-0 5-09 00:00: 00 02-26 00:00 :00 No 1{tbl} Take 1 tablet by mouth in the morning. [facility] verapamil SR 120 mg ER tablet 2022-0 5-08 00:00: 00 Yes 120mg Take 1 tablet by mouth in the morning. [facility] verapamil SR 120 mg ER tablet 2022-0 5-08 00:00: 00 02-26 00:00 :00 No 1{tbl} Take 1 tablet by mouth in the morning. [facility] OLANZapine 10 mg tablet 09-06 00:00: 00 02-26 00:00 :00 No 10mg Take 1 tablet by mouth in the morning. [facility] cloNIDine 0.1 mg tablet 09-06 00:00: 00 02-26 00:00 :00 No TAKE 1-2 TABLETS BY MOUTH AT BEDTIME NEEDED FOR SLEEP AND ANXIETY [facility] NaCl 0.9% (NS) bolus infusion 1,000 mL 09-05 18:15: 00 09-05 18:08 :00 No 1000mL at 999 mL/hr, 1,000 mL, IV Infusion, ONCE, 1 dose, On Sat09/05/22 at 1315, STAT [facility] acetaminoph en (TYLENOL) tablet 650 mg 09-05 17:30: 00 09-05 17:24 :00 No 650mg 650 mg, Oral, ONCE, 1 dose, On Sat09/05/22 at 1230, [place] [facility] ondansetron (ZOFRAN (PF)) injection 4 mg 09-05 17:15: 00 09-05 17:23 :00 No 4mg 4 mg, Slow IV Push, ONCE, 1 dose, On Sat09/05/22 at 1215, [place] [facility] magnesium sulfate in water 2 gram/50 mL (4 %) infusion 2 g 09-05 16:15: 00 09-05 16:10 :00 No 2g 2 g, IV Piggyback, Administer over 30 Minutes, ONCE, 1 dose, On Sat09/05/22 at 1115, Routine [facility] diphenhydrA MINE (BENADRYL) injection 25 mg 09-05 16:00: 00 09-05 16:01 :00 No 25mg 25 mg, Slow IV Push, ONCE, 1 dose, On Sat09/05/22 at 1100, STAT [facility] ketorolac (TORADOL) injection 30 mg 09-05 15:30: 00 09-05 14:38 :00 No 30mg 30 mg, Slow IV Push, ONCE, 1 dose, On Sat09/05/22 at 1030, Routine [facility] NaCl 0.9% (NS) bolus infusion 1,000 mL 09-05 15:00: 00 09-05 17:12 :00 No 1000mL at 999 mL/hr, 1,000 mL, IV Infusion, ONCE, 1 dose, On Sat09/05/22 at 1000, STAT [facility] methylpredn isolone sod succ (SOLU-MEDRO L) injection 125 mg 09-05 14:45: 00 09-05 14:35 :00 No 125mg 125 mg, Intravenou s, ONCE, 1 dose, On Sat09/05/22 at 0945, 2 mL [facility] butalbital- acetaminoph en-caff (ESGIC) 50-325-40 mg tablet 1 tablet 09-05 14:00: 00 09-05 14:34 :00 No 1{tbl} 1 tablet, Oral, ONCE, 1 dose, On Sat09/05/22 at 0900, [place] [facility] diphenhydrA MINE (BENADRYL) injection 25 mg 09-05 14:00: 00 09-05 14:39 :00 No 25mg 25 mg, Slow IV Push, ONCE, 1 dose, On Sat09/05/22 at 0900, STAT [facility] proMETHazin e (PHENERGAN) 12.5 mg in NaCl 0.9% (NS) 50 mL IV piggyback 09-05 14:00: 00 09-05 14:40 :00 No 12.5mg 12.5 mg, IV Piggyback, ONCE, 1 dose, [facility] Sat09/05/22 at 0900[facility] carvediloL 25 mg tablet 09-05 00:00: 00 02-26 00:00 :00 No [id number] 25mg Take 1 tablet by mouth in the morning and 1 tablet in the evening. Take with meals. [facility] losartan 50 mg tablet 09-05 00:00: 00 02-26 00:00 :00 No [id number] 50mg Take 1 tablet by mouth in the morning and 1 tablet in the evening. [facility] ibuprofen 800 mg tablet 08-05 00:00: 00 02-26 00:00 :00 No 800mg Take 1 tablet by mouth 3 (three) times daily as needed. [facility] cyclobenzap rine 10 mg tablet 08-05 00:00: 00 02-26 00:00 :00 No 10mg Take 1 tablet by mouth 3 (three) times daily as needed. [facility] maalox:diph enhydrAMINE :lidocaine 2 % viscous 1:1:1 ([facility]) oral suspension 15 mL 08-01 00:45: 00 08-01 00:44 :00 No 15mL 15 mL, Oral, ONCE, 1 dose, [facility] Sat07/31/22 [facility] 1945[facility]AD[facility] 15 mg 08-01 00:15: 00 08-01 00:44 :00 No 15mg 15 mg, Slow IV Push, ONCE, 1 dose, On Sat07/31/22 at 1915, Routine [facility] ondansetron (ZOFRAN (PF)) injection 4 mg 08-01 00:15: 00 08-01 00:46 :00 No 4mg 4 mg, Slow IV Push, ONCE, 1 dose, On Sat07/31/22 [facility] 1915, [facility] famotidine (PEPCID (PF)) injection 20 mg 08-01 00:15: 00 08-01 00:46 :00 No 20mg 20 mg, Slow IV Push, ONCE, 1 dose, On Sat07/31/22 at 1914, [facility] ondansetron 4 mg disintegrat ing tablet 07-31 00:00: 00 05-19 00:00 :00 No [id number] 4mg Take 1 tablet by mouth every 8 (eight) hours as needed for Nausea and Vomiting (N/V). [facility] sucralfate 1 gram tablet 07-31 00:00: 00 05-19 00:00 :00 No [id number] 1g Take 1 tablet by mouth before meals and at bedtime. [facility] pantoprazol e 40 mg EC tablet 07-31 00:00: 00 08-15 04:59 :00 No [id number] 40mg Take 1 tablet by mouth in the morning for 14 days. [facility] tamsulosin 0.4 mg 24 hr capsule - 00:00: 00 Yes .4mg Take 1 capsule by mouth in the morning. [facility] tamsulosin 0.4 mg 24 hr capsule 07-25 00:00: 00 02-26 00:00 :00 No 1{capsu le} Take 1 capsule by mouth in the morning. [facility] traMADoL 50 mg tablet -13 00:00: 00 02-26 00:00 :00 No 50mg Take 1 tablet by mouth. [facility] ibuprofen 600 mg tablet 3-05 00:00: 00 07-31 00:00 :00 No [id number] 600mg Take 1 tablet by mouth every 6 (six) hours as needed for Pain (scale 4-6). [facility] citalopram 10 mg tablet 06-29 00:00: 00 Yes 10mg Take 1 tablet by mouth in the morning. [facility] citalopram 10 mg tablet -17 00:00: 00 02-26 00:00 :00 No 1{tbl} Take 1 tablet by mouth in the morning. [facility] QUEtiapine 400 mg tablet 2-17 00:00: 00 02-26 00:00 :00 No [facility] gabapentin 600 mg tablet -17 00:00: 00 02-26 00:00 :00 No [facility] methylPREDN ISolone (MEDROL, ANABELA,) 4 mg tablets 06-23 00:00: 00 09-24 00:00 :00 No [id number] Take by mouth SEE-INSTRU CTIONS. follow package directions [facility] bromphenira mine-pseudo ephedrine-D M (BROMFED DM) 2-30-10 mg/5 mL syrup 06-23 00:00: 00 07-04 05:59 :00 No [id number] 5mL Take 5 mL by mouth 4 (four) times daily as needed for Cold symptoms for up to 10 days. [facility] methocarbam oL 750 mg tablet 06-23 00:00: 00 07-01 05:59 :00 No [id number] 750mg Take 1 tablet by mouth 4 (four) times daily for 7 days. [facility] magnesium sulfate in water 2 gram/50 mL (4 %) infusion 2 g 2021-05 21:00: 00 05-05 21:15 :00 No 2g 2 g, IV Piggyback, Administer over 15 Minutes, ONCE, 1 dose, On 05/05/22 at 1500, [place] [facility] butalbital- acetaminoph en-caff (ESGIC) 50-325-40 mg tablet 1 tablet 2021-05 20:15: 00 05-05 20:56 :00 No 1{tbl} 1 tablet, Oral, ONCE, 1 dose, On 05/05/22 at 1415, [place] [facility] dexamethaso ne sod phos PF injection 10 mg 2021-05 20:15: 00 05-05 21:00 :00 No 10mg 10 mg, Slow IV Push, ONCE, 1 dose, On 05/05/22 at 1415, 1 mL [facility] NaCl 0.9% (NS) bolus infusion 1,000 mL 2021-05 20:00: 00 05-05 21:45 :00 No 1000mL at 999 mL/hr, 1,000 mL, IV Infusion, ONCE, 1 dose, On 05/05/22 at 1400, [place] [facility] diphenhydrA MINE (BENADRYL) injection 25 mg 2021-05 19:15: 00 05-05 19:42 :00 No 25mg 25 mg, Slow IV Push, ONCE, 1 dose, On 05/05/22 at 1315, STAT [facility] ondansetron (ZOFRAN (PF)) injection 4 mg 2021-05 19:15: 00 05-05 19:45 :00 No 4mg 4 mg, Slow IV Push, ONCE, 1 dose, On 05/05/22 at 1315, [place] [facility] ketorolac (TORADOL) injection 30 mg 2021-05 19:15: 00 05-05 19:44 :00 No 30mg 30 mg, Slow IV Push, ONCE, 1 dose, On 05/05/22 at 1315, Routine [facility] butalbital- acetaminoph en-caff 50-325-40 mg tablet 2021-05 00:00: 00 09-24 00:00 :00 No [id number] 1{tbl} Take 1 tablet by mouth every 4 (four) hours as needed for Pain (scale 7-10). [facility] HYDROcodone -acetaminop hen (NORCO) 10-325 mg tablet 1 tablet 2021-05 16:30: 00 04-26 15:23 :00 No 1{tbl} 1 tablet, Oral, ONCE, 1 dose, On [place] 04/26/22 at 1030, Routine [facility] diphenhydrA MINE (BENADRYL) tablet 25 mg 2021-05 15:45: 00 04-26 15:53 :00 No 25mg 25 mg, Oral, ONCE, 1 dose, On [place] 04/26/22 at 0945, [place] [facility] NaCl 0.9% (NS) bolus infusion 1,000 mL 2021-05 15:45: 00 04-26 15:55 :00 No 1000mL at 999 mL/hr, 1,000 mL, IV Piggyback, ONCE, 1 dose, On [place] 04/26/22 at 0945, STAT [facility] ondansetron (ZOFRAN (PF)) injection 4 mg 2021-05 14:45: 00 04-26 14:52 :00 No 4mg 4 mg, Slow IV Push, ONCE, 1 dose, On [place] 04/26/22 at 0845, Routine [facility] cephALEXin (KEFLEX) 500 mg capsule 2021-05 00:00: 00 05-04 05:59 :00 No [id number] 500mg Take 1 capsule by mouth in the morning and 1 capsule at noon and 1 capsule in the evening. Do all this for 7 days. [facility] ondansetron (ZOFRAN) 4 mg tablet 2021-05 00:00: 00 07-31 00:00 :00 No 4mg Take 1 tablet by mouth every 8 (eight) hours as needed for Nausea and Vomiting (N/V). [facility] galcanezuma b-gnlm prefilled (EMGALITY) subcutaneou s injection 2021-05 00:00: 00 02-26 00:00 :00 No [id number] 120mg inject 120 mg under the skin once every month. [facility] methocarbam oL (ROBAXIN) injection 1,000 mg 2021-05 04:00: 00 Yes 1000mg 1,000 mg, Intravenou s, Q8H, First dose on 04/07/22 at 2200, Until Discontinu ed, Routine [facility] ketorolac (TORADOL) injection 30 mg 2021-05 00:45: 00 04-07 23:45 :00 No 30mg 30 mg, Slow IV Push, ONCE, 1 dose, On 04/07/22 at 1845, Routine [facility] HYDROcodone -acetaminop hen (NORCO) 10-325 mg tablet 1 tablet 2021-05 00:30: 00 04-07 23:45 :00 No 1{tbl} 1 tablet, Oral, ONCE NOW, 1 dose, On 04/07/22 at 1830, Routine [facility] diphenhydrA MINE (BENADRYL) injection 12.5 mg 2021-05 23:45: 00 04-07 23:46 :00 No 12.5mg 12.5 mg, Slow IV Push, ONCE, 1 dose, On 04/07/22 at 1745, STAT [facility] butorphanol (STADOL) injection 1 mg 2021-05 23:15: 00 04-07 22:48 :00 No 1mg 1 mg, IV Push, ONCE, 1 dose, On 04/07/22 at 1715, Routine [facility] NaCl 0.9% (NS) bolus infusion 1,000 mL 2021-05 23:15: 00 04-07 23:49 :00 No 1000mL at 999 mL/hr, 1,000 mL, IV Infusion, ONCE, 1 dose, On 04/07/22 at 1715, [place] [facility] ketorolac (TORADOL) injection 15 mg 2021-05 19:30: 00 03-24 18:45 :00 No 15mg 15 mg, Slow IV Push, ONCE, 1 dose, On 03/24/22 at 1330, Routine [facility] butorphanol (STADOL) injection 1 mg 2021-05 18:00: 00 03-24 17:26 :00 No 1mg 1 mg, Intravenou s, ONCE, 1 dose, On 03/24/22 at 1200, Routine [facility] proMETHazin e (PHENERGAN) 25 mg in NaCl 0.9% (NS) 50 mL IV piggyback 2021-05 18:00: 00 03-24 18:13 :00 No 25mg 25 mg, IV Piggyback, ONCE, 1 dose, On 03/24/22 at 1200, [place] [facility] butorphanol (STADOL) injection 1 mg 2022-1 1-12 17:15: 00 03-24 16:26 :00 No 1mg 1 mg, IV Push, ONCE, 1 dose, On 03/24/22 at 1115, Routine [facility] diphenhydrA MINE (BENADRYL) injection 25 mg 2021-05 15:30: 00 03-24 15:40 :00 No 25mg 25 mg, Slow IV Push, ONCE, 1 dose, On 03/24/22 at 0930, STAT [facility] ondansetron (ZOFRAN (PF)) injection 4 mg 2021-05 15:30: 00 03-24 14:25 :00 No 4mg 4 mg, Slow IV Push, ONCE, 1 dose, On 03/24/22 at 0930, [place] [facility] NaCl 0.9% (NS) IV infusion 1,000 mL 2021-05 15:15: 00 03-24 17:25 :00 No 1000mL at 999 mL/hr, Intravenou s, ONCE, 1 dose, On 03/24/22 at 0915, [place] [facility] magnesium sulfate in water 2 gram/50 mL (4 %) infusion 2 g 2021-05 15:00: 00 03-24 14:47 :00 No 2g 2 g, IV Piggyback, Administer over 20 Minutes, ONCE, 1 dose, On 03/24/22 at 0900, Routine [facility] dexamethaso ne sod phos PF injection 6 mg 2021-05 14:15: 00 03-24 14:14 :00 No 6mg 6 mg, Slow IV Push, ONCE, 1 dose, On 03/24/22 at 0815, 1 mL [facility] diphenhydrA MINE (BENADRYL) injection 25 mg 2021-05 14:15: 00 03-24 14:16 :00 No 25mg 25 mg, Slow IV Push, ONCE, 1 dose, On 03/24/22 at 0815, STAT [facility] ALBUTEROL INHALE 2022-1 1-12 07:58: 13 03-24 00:00 :00 No [facility] rizatriptan 10 mg tablet 2021-05 00:00: 00 02-26 00:00 :00 No [id number] 10mg Take 1 tablet by mouth as needed for Migraine. May repeat in 2 hours if needed [facility] Butalbital- Acetaminoph en-Caff (FIORICET) 50-300-40 mg per capsule 2021-05 00:00: 00 02-26 00:00 :00 No [id number] 1{capsu le} Take 1 capsule by mouth every 6 (six) hours as needed for Other (headache) . [facility] magnesium oxide 200 mg magnesium Tab 2021-05 00:00: 00 04-07 00:00 :00 No [id number] 200mg Take 200 mg by mouth 2 (two) times daily. Indication s: headache [facility] SUMAtriptan 50 mg tablet 2021-05 00:00: 00 02-26 00:00 :00 No 50mg Take 1 tablet by mouth as needed for Migraine. Take one tablet at onset of migraine, may take another tablet 2 hours after initial dose if no relief with first dose. DO NOT EXCEED 100mg in a 24 hour period. [facility] FENTanyl PF (SUBLIMAZE (PF)) injection 50 mcg 2021-05 15:30: 00 03-15 14:56 :00 No 50ug 50 mcg, Slow IV Push, ONCE, 1 dose, On Sat03/15/22 at 1030, Routine [facility] proMETHazin e (PHENERGAN) tablet 25 mg 2021-05 14:45: 00 03-15 14:55 :00 No 25mg 25 mg, Oral, ONCE, 1 dose, On Sat03/15/22 at 0945, [place] [facility] FENTanyl PF (SUBLIMAZE (PF)) injection 50 mcg 2021-05 14:45: 00 03-15 13:58 :00 No 50ug 50 mcg, Slow IV Push, ONCE, 1 dose, On Sat22 at 0945, Routine [facility] ondansetron (ZOFRAN (PF)) injection 4 mg 2021-05 14:00: 00 03-15 13:58 :00 No 4mg 4 mg, Slow IV Push, ONCE, 1 dose, On Kathie 03/15/22 at 0900, [place] [facility] carvediloL 25 mg tablet 2021-05 00:00: 00 09-05 00:00 :00 No [id number] 25mg Take 1 tablet by mouth in the morning and 1 tablet in the evening. Take with meals. [facility] ondansetron 4 mg disintegrat ing tablet 2021-05 00:00: 00 04-07 00:00 :00 No [id number] 4mg Take 1 tablet by mouth every 8 (eight) hours as needed for Nausea and Vomiting (N/V). [facility] ketorolac 10 mg tablet 2021-05 00:00: 00 04-07 00:00 :00 No [id number] 10mg Take 1 tablet by mouth every 6 (six) hours as needed for Pain (scale 7-10). [facility] proMETHazin e 25 mg tablet 2021-05 00:00: 00 04-07 00:00 :00 No [id number] 25mg Take 1 tablet by mouth every 6 (six) hours as needed for N/V unresponsi ve to Ondansetro n. [facility] cephALEXin 500 mg capsule 2021-05 00:00: 00 03-19 05:59 :00 No [id number] 500mg Take 1 capsule by mouth 4 (four) times daily for 3 days. [facility] predniSONE 20 mg tablet 2021-05 00:00: 00 03-15 04:59 :00 No [id number] 20mg Take 1 tablet by mouth in the morning for 2 days. [facility] methocarbam oL (ROBAXIN) tablet 500 mg 2021-05 16:45: 00 03-11 17:08 :00 No 500mg 500 mg, Oral, ONCE, 1 dose, On 03/11/22 at 1200, [facility] dexamethaso ne sod phos PF injection 10 mg 2021-05 16:00: 00 03-11 16:00 :00 No 10mg 10 mg, Slow IV Push, ONCE, 1 dose, On 03/11/22 at 1100, 1 mL [facility] diphenhydrA MINE (BENADRYL) injection 25 mg 2021-05 15:46: 00 03-11 16:00 :00 No 25mg 25 mg, Slow IV Push, ONCE, 1 dose, On Sat03/11/22 at 1100, STAT [facility] NaCl 0.9% (NS) IV infusion 1,000 mL 2021-05 15:45: 00 03-11 16:04 :00 No 1000mL at 999 mL/hr, Intravenou s, ONCE, 1 dose, On Sat03/11/22 at 1045, Routine [facility] butalbital- acetaminoph en-caff (ESGIC) 50-325-40 mg tablet 1 tablet 2021-05 15:00: 00 03-11 15:05 :00 No 1{tbl} 1 tablet, Oral, ONCE, 1 dose, On 03/11/22 at 1015, [facility] ketorolac (TORADOL) injection 15 mg 2021-05 14:45: 00 03-11 15:05 :00 No 15mg 15 mg, Slow IV Push, ONCE, 1 dose, On 03/11/22 at 0945, [facility] proMETHazin e (PHENERGAN) 12.5 mg in NaCl 0.9% (NS) 50 mL IV piggyback 2021-05 14:45: 00 03-11 15:04 :00 No 12.5mg 12.5 mg, IV Piggyback, ONCE, 1 dose, On 03/11/22 at 0945, [facility] proMETHazin e 25 mg tablet 2021-05 030 00:00: 00 07-31 00:00 :00 No [id number] 25mg Take 1 tablet by mouth every 6 (six) hours as needed for Nausea and Vomiting (N/V). [facility] methocarbam oL 500 mg tablet 2021-05 00:00: 00 04-07 00:00 :00 No [id number] 500mg Take 1 tablet by mouth 3 (three) times daily as needed for Pain (scale 7-10). [facility] topiramate 25 mg tablet 2021-05 00:00: 00 02-26 00:00 :00 No [id number] 100mg Take 4 tablets by mouth in the morning. [facility] diphenhydrA MINE 25 mg capsule 2021-05 09:39: 59 02-27 00:00 :00 No 25mg Take 25 mg by mouth every 6 (six) hours as needed for Allergies. [facility] citalopram hydrobromid e (CITALOPRAM ORAL) 2021-05 09:39: 49 02-27 00:00 :00 No Take by mouth. [facility] carbamazepi ne (TEGRETOL ORAL) 2021-05 09:39: 28 02-27 00:00 :00 No Take by mouth. [facility] albuterol 90 mcg/actuati on inhaler 2021-05 00:00: 00 02-26 00:00 :00 No [id number] 2{puff} Inhale 2 Puffs every 6 (six) hours as needed for Wheezing or Shortness of Breath. [facility] SUMAtriptan 50 mg tablet 2021-05 00:00: 00 03-21 00:00 :00 No 50mg Take 50 mg by mouth as needed for Migraine. Take one tablet at onset of migraine, may take another tablet 2 hours after initial dose if no relief with first dose. DO NOT EXCEED 100mg in a 24 hour period. [facility] benzonatate 200 mg capsule 2022-1 0-18 00:00: 00 03-07 04:59 :00 No [id number] 200mg Take 1 capsule by mouth 3 (three) times daily as needed for Cough for up to 7 days. [facility] butalbital- acetaminoph en-caff (ESGIC) 50-325-40 mg tablet 1 tablet 2021-05 0 08:15: 00 02-21 08:09 :00 No 1{tbl} 1 tablet, Oral, ONCE, 1 dose, On Sat02/21/22 at 0315, [facility] butorphanol (STADOL) injection 1 mg 2021-05 08:15: 00 02-21 07:28 :00 No 1mg 1 mg, IV Push, ONCE, 1 dose, On Sat02/21/22 at 0315, Routine [facility] NaCl 0.9% (NS) bolus infusion 1,000 mL 2021-05 07:15: 00 02-21 08:40 :00 No 1000mL at 999 mL/hr, 1,000 mL, IV Infusion, ONCE, 1 dose, On Sat02/21/22 at 0215, [facility] proMETHazin e (PHENERGAN) 12.5 mg in NaCl 0.9% (NS) 50 mL IV piggyback 2021-05 06:30: 00 02-21 06:38 :00 No 12.5mg 12.5 mg, IV Piggyback, ONCE, 1 dose, On Sat02/21/22 at 0130, [facility] dexamethaso ne sod phos PF injection 10 mg 2021-05 012 06:30: 00 02-21 06:38 :00 No 10mg 10 mg, Slow IV Push, ONCE, 1 dose, On Sat02/21/22 at 0130, 1 mL [facility] ketorolac (TORADOL) injection 15 mg 2021-05 012 06:30: 00 02-21 06:38 :00 No 15mg 15 mg, Slow IV Push, ONCE, 1 dose, On Sat02/21/22 at 0130, [place] [facility] diphenhydrA MINE (BENADRYL) injection 25 mg 2021-05 06:30: 00 02-21 06:38 :00 No 25mg 25 mg, Slow IV Push, ONCE, 1 dose, On Sat02/21/22 at 0130, STAT [facility] FENTanyl PF (SUBLIMAZE (PF)) injection 50 mcg 2021-05 20:30: 00 02-18 19:44 :00 No 50ug 50 mcg, Slow IV Push, ONCE, 1 dose, On 02/18/22 at 1530, Routine [facility] ketorolac (TORADOL) injection 30 mg 2021-05 20:15: 00 02-18 20:09 :00 No 30mg 30 mg, Slow IV Push, ONCE, 1 dose, On 02/18/22 at 1515, [facility] iopamidol (ISOVUE 370-500 mL) injection 60 mL 2021-05 19:30: 00 02-18 17:30 :00 No [id number] 60mL 60 mL, Intravenou s, ONCE, 1 dose, On 02/18/22 at 1430, Routine [facility] proMETHazin e (PHENERGAN) 12.5 mg in NaCl 0.9% (NS) 50 mL IV piggyback 2021-05 18:15: 00 02-18 18:19 :00 No 12.5mg 12.5 mg, IV Piggyback, ONCE, 1 dose, On 02/18/22 at 1315, [place] [facility] FENTanyl PF (SUBLIMAZE (PF)) injection 50 mcg 2021-05 18:00: 00 02-18 17:26 :00 No 50ug 50 mcg, Slow IV Push, ONCE, 1 dose, On 02/18/22 at 1300, Routine [facility] ondansetron (ZOFRAN (PF)) injection 4 mg 2021-05 17:15: 00 02-18 17:27 :00 No 4mg 4 mg, Slow IV Push, ONCE, 1 dose, On [place] 02/18/22 at 1215, [facility] morpHINE (2 mg/mL) injection 4 mg 01-18 15:15: 00 01-18 14:49 :00 No 4mg 4 mg, Slow IV Push, ONCE, 1 dose, On [facility] 01/18/22 at 1015, [facility] ondansetron (ZOFRAN (PF)) injection 4 mg 01-18 13:30: 00 01-18 13:33 :00 No 4mg 4 mg, Slow IV Push, ONCE, 1 dose, On [facility] 01/18/22 at 0830, [facility] morpHINE (4 mg/mL) injection 4 mg 01-18 13:30: 00 01-18 13:34 :00 No 4mg 4 mg, Slow IV Push, ONCE, 1 dose, On [facility] 01/18/22 at 0830, [facility] morpHINE (4 mg/mL) injection 4 mg 01-18 12:30: 00 01-18 11:39 :00 No 4mg 4 mg, Slow IV Push, ONCE, 1 dose, On [facility] 01/18/22 at 0730, [facility] famotidine (PEPCID (PF)) injection 20 mg 01-18 11:30: 00 01-18 10:52 :00 No 20mg 20 mg, Slow IV Push, ONCE, 1 dose, On [facility] 01/18/22 at 0630, [facility] ondansetron (ZOFRAN (PF)) injection 4 mg 01-18 11:30: 00 01-18 10:52 :00 No 4mg 4 mg, Slow IV Push, ONCE, 1 dose, On [facility] 01/18/22 at 0630, [facility] iodixanoL (VISIPAQUE 270-150 mL) injection 80 mL 01-18 11:21: 00 01-18 11:15 :00 No [id number] 80mL 80 mL, Intravenou s, ONCE, 1 dose, On [place] 01/18/22 at 0630, Routine [facility] NaCl 0.9% (NS) bolus infusion 1,000 mL 01-18 11:15: 00 01-18 12:59 :00 No 1000mL at 999 mL/hr, 1,000 mL, IV Infusion, ONCE, 1 dose, On [place] 01/18/22 at 0615, [place] [facility] morpHINE (4 mg/mL) injection 4 mg 01-18 10:45: 00 01-18 10:52 :00 No 4mg 4 mg, Slow IV Push, ONCE, 1 dose, On [place] 01/18/22 at 0545, STAT [facility] traMADoL 50 mg tablet 01-18 00:00: 00 02-27 00:00 :00 No [id number] 50mg Take 1 tablet by mouth every 6 (six) hours as needed for Pain (scale 7-10). Indication s: acute pain [facility] ondansetron 4 mg disintegrat ing tablet 01-18 00:00: 00 02-27 00:00 :00 No [id number] 4mg Take 1 tablet by mouth every 8 (eight) hours as needed for Nausea and Vomiting (N/V). [facility] ibuprofen 600 mg tablet 01-18 00:00: 00 02-27 00:00 :00 No [id number] 600mg Take 1 tablet by mouth every 6 (six) hours as needed for Pain (scale 4-6). [facility] predniSONE 20 mg tablet 01-16 00:00: 00 01-24 04:59 :00 No [id number] 40mg Take 2 tablets by mouth in the morning for 7 days. [facility] morpHINE (4 mg/mL) injection 4 mg 01-15 16:15: 00 01-15 15:28 :00 No 4mg 4 mg, Slow IV Push, ONCE, 1 dose, On Sat01/15/22 at 1115, [place] [facility] proMETHazin e (PHENERGAN) 12.5 mg in NaCl 0.9% (NS) 50 mL IV piggyback 01-15 15:30: 00 01-15 15:28 :00 No 12.5mg 12.5 mg, IV Piggyback, ONCE, 1 dose, On Sat01/15/22 at 1030, [facility] NaCl 0.9% (NS) bolus infusion 1,000 mL 01-15 15:00: 00 01-15 15:38 :00 No 1000mL at 999 mL/hr, 1,000 mL, IV Infusion, ONCE, 1 dose, On Sat01/15/22 at 1000, [facility] morpHINE (4 mg/mL) injection 4 mg 01-15 15:00: 00 01-15 14:37 :00 No 4mg 4 mg, Slow IV Push, ONCE, 1 dose, On Sat01/15/22 at 1000, [facility] ondansetron (ZOFRAN (PF)) injection 8 mg 01-15 14:15: 00 01-15 14:37 :00 No 8mg 8 mg, Slow IV Push, ONCE, 1 dose, On Sat01/15/22 at 0915, [facility] dexamethaso ne sod phos PF injection 10 mg 01-15 14:15: 00 01-15 14:37 :00 No 10mg 10 mg, Slow IV Push, ONCE, 1 dose, On Sat01/15/22 at 0915, 1 mL [facility] proMETHazin e 25 mg tablet 01-15 00:00: 00 02-27 00:00 :00 No [id number] 25mg Take 1 tablet by mouth every 6 (six) hours as needed for Nausea and Vomiting (N/V). [facility] ondansetron (ZOFRAN-ODT ) disintegrat ing tablet 4 mg 01-09 01:45: 00 01-09 00:56 :00 No 4mg 4 mg, Oral, ONCE, 1 dose, On Sat01/08/22 at 2045, Routine [facility] HYDROcodone -acetaminop hen (NORCO 5) 5-325 mg tablet 1 tablet 01-09 00:45: 00 01-09 00:37 :00 No 1{tbl} 1 tablet, Oral, ONCE, 1 dose, On Sat01/08/22 at 1945, [place] [facility] diphenhydrA MINE (BENADRYL) injection 25 mg 01-08 23:45: 00 01-08 23:51 :00 No 25mg 25 mg, Slow IV Push, ONCE, 1 dose, On Sat01/08/22 at 1845, STAT [facility] dexamethaso ne sod phos PF injection 10 mg 01-08 23:45: 00 01-08 23:50 :00 No 10mg 10 mg, Slow IV Push, ONCE, 1 dose, On Sat01/08/22 at 1845, 1 mL [facility] ketorolac (TORADOL) injection 30 mg 01-08 23:45: 00 01-08 23:51 :00 No 30mg 30 mg, Slow IV Push, ONCE, 1 dose, On Sat01/08/22 at 1845, [place] [facility] acetaminoph en (TYLENOL ARTHRITIS PAIN) 650 mg CR tablet 01-08 00:00: 00 04-07 00:00 :00 No [id number] 650mg Take 1 tablet by mouth every 8 (eight) hours as needed for Pain. [facility] ondansetron 4 mg disintegrat ing tablet 01-08 00:00: 00 02-27 00:00 :00 No [id number] 4mg Take 1 tablet by mouth every 8 (eight) hours as needed for Nausea and Vomiting (N/V). [facility] ketorolac 10 mg tablet 01-08 00:00: 00 02-27 00:00 :00 No [id number] 10mg Take 1 tablet by mouth every 6 (six) hours as needed for Pain (scale 4-6) or Pain (scale 7-10). [facility] metaxalone (SKELAXIN) 800 mg tablet 8 00:00: 00 02-27 00:00 :00 No [id number] 800mg Take 1 tablet by mouth in the morning and 1 tablet at noon and 1 tablet in the evening. [facility] metroNIDAZO LE 500 mg tablet 12-18 00:00: 00 02-27 00:00 :00 No 500mg Take 1 tablet by mouth every 12 (twelve) hours. [facility] trazodone/d ietary supp. no.8 (TRAZAMINE ORAL) 12-12 15:08: 46 12-12 00:00 :00 No Take by mouth. [facility] diphenhydrA MINE 25 mg capsule 12-12 13:03: 04 Yes 25mg Take 25 mg by mouth every 6 (six) hours as needed for Allergies. [facility] carbamazepi ne (TEGRETOL ORAL) 12-12 13:03: 04 Yes Take by mouth. [facility] traZODone 50 mg tablet 12-12 00:00: 00 02-27 00:00 :00 No [id number] 50mg Take 1 tablet by mouth at bedtime. [facility] SERTraline (ZOLOFT) 50 mg tablet 12-12 00:00: 00 02-27 00:00 :00 No [id number] 50mg Take 1 tablet by mouth in the morning. [facility] sulfamethox azole-trime thoprim (BACTRIM DS) 800-160 mg per tablet 12-12 00:00: 00 12-16 04:59 :00 No [id number] 1{tbl} Take 1 tablet by mouth in the morning and 1 tablet in the evening. Do all this for 3 days. [facility] ibuprofen 600 mg tablet 7-15 00:00: 00 02-27 00:00 :00 No [id number] 600mg Take 1 tablet by mouth every 6 (six) hours as needed for Pain (scale 4-6). [facility] acetaminoph en-codeine 300-30 mg tablet 11-24 00:00: 00 12-12 00:00 :00 No [id number] 1{tbl} Take 1 tablet by mouth every 4 (four) hours as needed for Pain (scale 4-6). Indication s: acute pain [facility] bromphenira mine-pseudo ephedrine-D M (BROMFED DM) 2-30-10 mg/5 mL syrup 11-18 00:00: 00 03-24 00:00 :00 No [id number] 5mL Take 5 mL by mouth 4 (four) times daily as needed for Congestion /Allergies or Cough. [facility] naproxen 500 mg tablet 11-18 00:00: 00 02-27 00:00 :00 No [id number] 500mg Take 1 tablet by mouth every 8 (eight) hours as needed for Pain (scale 4-6). [facility] cyclobenzap rine 10 mg tablet 11-18 00:00: 00 02-27 00:00 :00 No [id number] 10mg Take 1 tablet by mouth at bedtime as needed for Muscle Spasms. [facility] ibuprofen 100 mg/5 mL oral suspension 10-25 00:00: 00 02-27 00:00 :00 No [id number] 605mg Take 30.25 mL by mouth every 6 (six) hours as needed for Pain (scale 4-6) or Temp > 38.5 C. [facility] acetaminoph en 160 mg/5 mL liquid 10-25 00:00: 00 12-12 00:00 :00 No [id number] 608mg Take 19 mL by mouth every 6 (six) hours as needed for Fever. [facility] DULoxetine 60 mg capsule 10-06 00:00: 00 02-27 00:00 :00 No [facility] traZODone 50 mg tablet 10-06 00:00: 00 12-12 00:00 :00 No [facility] mometasone 50 mcg/actuati on nasal spray 09-28 00:00: 00 02-27 00:00 :00 No [id number] 1{spray } Use 1 [place] in each nostril 2 (two) times daily. [facility] cetirizine (ZYRTEC) 10 mg tablet 09-25 00:00: 00 02-27 00:00 :00 No [id number] 10mg Take 1 tablet by mouth daily. [facility] DULoxetine 30 mg capsule 09-18 00:00: 00 02-27 00:00 :00 No [facility] gabapentin 300 mg capsule 09-18 00:00: 00 02-27 00:00 :00 No [facility] ondansetron 4 mg tablet 09-18 00:00: 00 02-27 00:00 :00 No [facility] amLODIPine 5 mg tablet -22 00:00: 00 02-27 00:00 :00 No 5mg Take 5 mg by mouth. [facility] buPROPion XL 150 mg 24 hr tablet 4-20 00:00: 00 02-27 00:00 :00 No 150mg Take 150 mg by mouth. [facility] proMETHazin e 25 mg tablet 4-05 00:00: 00 09-12 00:00 :00 No [id number] 25mg Take 1 tablet by mouth every 6 (six) hours as needed for Nausea and Vomiting (N/V). [facility] traMADoL 50 mg tablet 4-05 00:00: 00 09-12 00:00 :00 No [id number] 50mg Take 1 tablet by mouth every 6 (six) hours as needed (pain). Indication s: acute pain [facility] cyclobenzap rine 10 mg tablet 3-28 00:00: 00 08-22 04:59 :00 No [id number] 10mg Take 1 tablet by mouth 3 (three) times daily for 14 days. [facility] ibuprofen 800 mg tablet 3 00:00: 00 08-22 04:59 :00 No [id number] 800mg Take 1 tablet by mouth every 6 (six) hours as needed for Pain (scale 1-3) for up to 14 days. [facility] diclofenac 75 mg EC tablet 08-01 00:00: 00 09-12 00:00 :00 No [facility] orphenadrin e 100 mg SR tablet 08-01 00:00: 09-12 00:00 :00 No [facility] divalproex 125 mg EC tablet 07-21 00:00: 00 09-12 00:00 :00 No [id number] 125mg Take 1 tablet by mouth every 12 (twelve) hours. [facility] divalproex Sprinkles 125 mg SPRINKLE capsule 3 00:00: 00 09-12 00:00 :00 No [facility] ibuprofen 600 mg tablet 307 00:00: 00 08-01 04:59 :00 No [id number] 600mg Take 1 tablet by mouth every 6 (six) hours as needed for Temp > 38.5 C for up to 14 days. [facility] acetaminoph en-codeine 300-30 mg tablet 1-30 00:00: 00 09-12 00:00 :00 No TAKE 1 TABLET BY MOUTH EVERY 4 HOURS NEEDED FOR PAIN FOR 2 DAYS [facility] fluticasone propionate 110 mcg/actuati on inhaler - 00:00: 00 09-28 00:00 :00 No [id number] 2{puff} Inhale 2 Puffs every 12 (twelve) hours. [facility] benzonatate (TESSALON PERLES) 100 mg capsule 1-13 00:00: 00 09-25 00:00 :00 No [id number] 100mg Take 1 capsule by mouth every 8 (eight) hours as needed for Cough. [facility] carvediloL 25 mg tablet 2020-05 00:00: 00 02-27 00:00 :00 No 25mg Take 1 tablet by mouth 2 (two) times daily with meals. [facility] losartan 50 mg tablet 2020-05 00:00: 00 02-27 00:00 :00 No 50mg Take 1 tablet by mouth 2 (two) times daily. [facility] proMETHazin e 25 mg tablet 2020-05 00:00: 00 09-12 00:00 :00 No [facility] methocarbam oL (ROBAXIN) 500 mg tablet 2020-05 00:00: 00 05-25 00:00 :00 No [id number] 500mg Take 1 tablet by mouth every 6 (six) hours as needed (MUSCLE SPASM). [facility] vitamin B-12 (VITAMIN B-12) 500 mcg tablet 2020-05 00:00: 00 09-12 00:00 :00 No [id number] 500ug Take 1 tablet by mouth daily. [facility] methylPREDN ISolone 4 mg tablets 2020-05 00:00: 00 05-25 00:00 :00 No [id number] Follow package directions [facility] fluticasone propion-chel meteroL 115-21 mcg/actuati on inhaler 02-09 00:00: 00 05-25 00:00 :00 No [id number] 2{puff} Inhale 2 Puffs 2 (two) times daily. Rinse mouth after each use. [facility] albuterol 2.5 mg /3 mL (0.083 %) nebulizer solution 02-09 00:00: 00 05-25 00:00 :00 No [id number] 2.5mg Inhale 3 mL every 6 (six) hours as needed for Wheezing or Shortness of Breath. [facility] methocarbam oL (ROBAXIN) 500 mg tablet 02-09 00:00: 00 05-02 00:00 :00 No [id number] 500mg Take 1 tablet by mouth every 6 (six) hours as needed (MUSCLE SPASM). [facility] bromphenira mine-pseudo ephedrine-D M (BROMFED DM) 2-30-10 mg/5 mL syrup 01-31 00:00: 00 02-09 00:00 :00 No [id number] 5mL Take 5 mL by mouth 4 (four) times daily as needed for Cough. [facility] methylPREDN ISolone (MEDROL, ANABELA,) 4 mg tablets 01-20 00:00: 00 02-09 00:00 :00 No [id number] Take by mouth SEE-INSTRU CTIONS. follow package directions [facility] albuterol 90 mcg/actuati on inhaler 01-12 00:00: 00 05-25 00:00 :00 No [id number] 2{puff} Inhale 2 Puffs every 4 (four) hours as needed for Wheezing or Shortness of Breath. [facility] benzonatate 100 mg capsule 01-12 00:00: 00 02-19 00:00 :00 No [id number] 100mg Take 1 capsule by mouth 3 (three) times daily as needed for Cough. [facility] losartan 50 mg tablet 12-23 00:00: 00 02-09 00:00 :00 No 50mg Take 1 tablet by mouth 2 (two) times daily. [facility] topiramate 25 mg tablet 11-22 00:00: 00 12-26 00:00 :00 No 25mg Take 1 tablet by mouth 2 (two) times daily. [facility] OXcarbazepi ne 150 mg tablet 11-21 00:00: 00 02-09 00:00 :00 No [facility] FLUoxetine 40 mg capsule 2021-0 7-12 00:00: 00 12-26 00:00 :00 No [facility] traZODone 100 mg tablet 7-12 00:00: 00 12-26 00:00 :00 No [facility] dicyclomine 20 mg tablet 6-10 00:00: 00 12-26 00:00 :00 No [id number] 20mg Take 1 tablet by mouth 4 (four) times daily. [facility] proMETHazin e 25 mg tablet 6-10 00:00: 00 12-26 00:00 :00 No [id number] 25mg Take 1 tablet by mouth every 6 (six) hours as needed for Nausea and Vomiting (N/V). [facility] acetaminoph en-codeine 300-30 mg tablet 6-05 00:00: 00 12-26 00:00 :00 No TAKE 2 TABLETS BY MOUTH EVERY 6 HOURS NEEDED FOR PAIN [facility] oxybutynin (DITROPAN XL) 10 mg 24 hr tablet 5-30 00:00: 00 12-26 00:00 :00 No [id number] 10mg Take 1 tablet by mouth daily. [facility] ondansetron (ZOFRAN ODT) 4 mg disintegrat ing tablet 5-30 00:00: 00 12-26 00:00 :00 No [id number] 4mg Take 1 tablet by mouth every 8 (eight) hours as needed for Nausea and Vomiting (N/V). [facility] ciprofloxac in HCl 500 mg tablet 5-30 00:00: 00 11-22 00:00 :00 No [id number] 500mg Take 1 tablet by mouth 2 (two) times daily. [facility] predniSONE 20 mg tablet 5-25 00:00: 00 11-22 00:00 :00 No [id number] 20mg Take 1 tablet by mouth daily. Days 1-2: 3 pills (60 mg). Days 3-4: 2 pills (40 mg). Days 5-6: 1 pill (20 mg). Days 7-8: 1/2 pill (10 mg). Then stop [facility] mupirocin 2 % ointment 09-29 00:00: 00 12-26 00:00 :00 No [id number] Apply to both nostrils at bedtime [facility] naproxen sodium (ANAPROX DS) 550 mg tablet 09-28 00:00: 00 12-26 00:00 :00 No [id number] 550mg Take 1 tablet by mouth 2 (two) times daily with meals. [facility] losartan 25 mg tablet 09-16 00:00: 00 12-22 00:00 :00 No 25mg Take 1 tablet by mouth 2 (two) times daily. [facility] nadoloL 20 mg tablet 09-16 00:00: 00 12-22 00:00 :00 No [id number] Please take Nadalol 40 mg QAM [facility] LOESTRIN FE (LOESTRIN FE 1/20) 1 mg-20 mcg (21)/75 mg (7) tablet 09-06 00:00: 00 02-09 00:00 :00 No [id number] 1{tbl} Take 1 tablet by mouth daily. [facility] FLUoxetine 20 mg capsule 09-06 00:00: 00 11-22 00:00 :00 No [id number] 20mg Take 1 capsule by mouth daily. [facility] traZODone 50 mg tablet 09-06 00:00: 00 11-22 00:00 :00 No [id number] 50mg Take 1 tablet by mouth at bedtime. [facility] nadoloL 20 mg tablet 08-31 00:00: 00 09-16 00:00 :00 No [id number] Please take Nadalol 40 mg QAM and 20 mg QPM [facility] methocarbam oL (ROBAXIN) 500 mg tablet 08-18 00:00: 09-30 00:00 :00 No [id number] 500mg Take 1 tablet by mouth every 6 (six) hours as needed (MUSCLE SPASM). [facility] traMADoL (ULTRAM) 50 mg tablet 08 00:00: 00 09-30 00:00 :00 No [id number] 50mg Take 1 tablet by mouth every 6 (six) hours as needed for Pain (scale 7-10). Indication s: acute pain [facility] ibuprofen 800 mg tablet 4-04 00:00: 00 11-22 00:00 :00 No TAKE 1 TABLET BY MOUTH EVERY 12 HOURS NEEDED FOR PAIN [facility] ondansetron (ZOFRAN ODT) 4 mg disintegrat ing tablet 08-01 00:00: 00 09-30 00:00 :00 No [id number] 4mg Take 1 tablet by mouth every 8 (eight) hours as needed for Nausea and Vomiting (N/V). [facility] ketorolac 10 mg tablet 08-01 00:00: 00 09-30 00:00 :00 No [id number] 10mg Take 1 tablet by mouth every 6 (six) hours as needed for Pain (scale 4-6). [facility] ciprofloxac in HCl 250 mg tablet 08-01 00:00: 00 09-30 00:00 :00 No [id number] 250mg Take 1 tablet by mouth 2 (two) times daily. [facility] lidocaine 5 % (700 mg/patch) patch 12 00:00: 00 09-30 00:00 :00 No [id number] 1{patch } Apply 1 Patch to area(s) every 24 (twenty-fo ur) hours as needed for Localized pain. [facility] topiramate 25 mg tablet 05-17 00:00: 00 11-22 00:00 :00 No 25mg Take 1 tablet by mouth 2 (two) times daily. [facility] 25 mg 24 hr tablet 2019-05 00:00: 06-15 00:00 :00 No [id number] 12.5mg Take 0.5 tablets by mouth 2 (two) times daily for 90 days. [facility] FLUoxetine 20 mg capsule 2019-05 00:00: 00 09-06 00:00 :00 No 20mg Take 20 mg by mouth daily. [facility] norgestimat e-ethinyl estradiol 0.25-35 mg-mcg per tablet 11-17 00:00: 04-15 00:00 :00 No [id number] 1{tbl} Take 1 tablet by mouth daily. [facility] buPROPion XL (WELLBUTRIN XL) 150 mg 24 hr tablet 08-12 00:00: 01-04 00:00 :00 No [id number] 150mg Take 1 tablet by mouth daily. [facility] acetaminoph en 325 mg tablet 07-22 00:0001-04 00:00 :00 No [id number] 650mg Take 2 tablets by mouth every 6 (six) hours as needed for Pain (scale 1-3) or Pain (scale 4-6). [facility] vitamin w/FA tablet 07-22 00:00: 01-04 00:00 :00 No [id number] 1{tbl} Take 1 tablet by mouth daily. [facility] docusate calcium 240 mg capsule 07-22 00:00: 01-04 00:00 :00 No [id number] 240mg Take 1 capsule by mouth once daily as needed for Constipati on. [facility] ferrous sulfate 325 mg (65 mg iron) tablet 07-22 00:00: 01-04 00:00 :00 No [id number] 325mg Take 1 tablet by mouth 2 (two) times daily. [facility] ibuprofen 600 mg tablet 07-22 00:00: 01-04 00:00 :00 No [id number] 600mg Take 1 tablet by mouth every 6 (six) hours as needed (Pain). Take with food or milk. [facility] ALBUTEROL 90 mcg/actuati on inhaler 1-14 00:00: 00 05-01 00:00 :00 No [id number] 103 INHALE 2 PUFFS BY MOUTH EVERY 6 HOURS NEEDED FOR WHEEZING FOR SHORTNESS OF BREATH [facility] buPROPion SR (WELLBUTRIN SR) 150 mg SR tablet 05-21 00:00: 00 01-04 00:00 :00 No [id number] 150mg Take 1 tablet by mouth 2 (two) times daily. [facility] busPIRone 10 mg tablet 05-21 00:00: 00 01-04 00:00 :00 No [id number] 109 10mg Take 1 tablet by mouth 3 (three) times daily. [facility] Immunizations Ordered Immunization Name Filled Immunization Name Date Status Comments Source Influenza Virus Vaccine Quad IM, Preserv and ABX Free 6 MO-64 YRS 2022-02-27 00:00:00 Completed [facility] Influenza Virus Vaccine Quad IM, Preserv and ABX Free 6 MO-64 YRS 2022-02-27 00:00:00 Completed [facility] Influenza Virus Vaccine Quad IM, Preserv and ABX Free 6 MO-64 YRS 2022-02-27 00:00:00 Completed [facility] Influenza Virus Vaccine Quad IM, Preserv and ABX Free 6 MO-64 YRS 2022-02-27 00:00:00 Completed [facility] Influenza Virus Vaccine Quad IM, Preserv and ABX Free 6 MO-64 YRS 2022-02-27 00:00:00 Completed [facility] Influenza Virus Vaccine Quad IM, Preserv and ABX Free 6 MO-64 YRS 2022-02-27 00:00:00 Completed [facility] Influenza Virus Vaccine Quad IM, Preserv and ABX Free 6 MO-64 YRS 2022-02-27 00:00:00 Completed [facility] Influenza Virus Vaccine Quad IM, Preserv and ABX Free 6 MO-64 YRS 2022-02-27 00:00:00 Completed [facility] Influenza Virus Vaccine Quad IM, Preserv and ABX Free 6 MO-64 YRS 2022-02-27 00:00:00 Completed [facility] Influenza Virus Vaccine Quad IM, Preserv and ABX Free 6 MO-64 YRS 2022-02-27 00:00:00 Completed [facility] Influenza Virus Vaccine Quad IM, Preserv and ABX Free 6 MO-64 YRS 2022-02-27 00:00:00 Completed [facility] Influenza Virus Vaccine Quad IM, Preserv and ABX Free 6 MO-64 YRS 2022-02-27 00:00:00 Completed [facility] Influenza Virus Vaccine Quad IM, Preserv and ABX Free 6 MO-64 YRS 2022-02-27 00:00:00 Completed [facility] Influenza Virus Vaccine Quad IM, Preserv and ABX Free 6 MO-64 YRS 2022-02-27 00:00:00 Completed [facility] Influenza Virus Vaccine Quad IM, Preserv and ABX Free 6 MO-64 YRS 2022-02-27 00:00:00 Completed [facility] Influenza Virus Vaccine Quad IM, Preserv and ABX Free 6 MO-64 YRS 2022-02-27 00:00:00 Completed [facility] Influenza Virus Vaccine Quad IM, Preserv and ABX Free 6 MO-64 YRS 2022-02-27 00:00:00 Completed [facility] Influenza Virus Vaccine Quad IM, Preserv and ABX Free 6 MO-64 YRS 2022-02-27 00:00:00 Completed [facility] Influenza Virus Vaccine Quad IM, Preserv and ABX Free 6 MO-64 YRS 2022-02-27 00:00:00 Completed [facility] Influenza Virus Vaccine Quad IM, Preserv and ABX Free 6 MO-64 YRS 2022-02-27 00:00:00 Completed [facility] Influenza Virus Vaccine Quad IM, Preserv and ABX Free 6 MO-64 YRS 2022-02-27 00:00:00 Completed [facility] Influenza Virus Vaccine Quad IM, Preserv and ABX Free 6 MO-64 YRS 2022-02-27 00:00:00 Completed [facility] Influenza Virus Vaccine Quad IM, Preserv and ABX Free 6 MO-64 YRS 2022-02-27 00:00:00 Completed [facility] Influenza Virus Vaccine Quad IM, Preserv and ABX Free 6 MO-64 YRS 2022-02-27 00:00:00 Completed [facility] Influenza Virus Vaccine Quad IM, Preserv and ABX Free 6 MO-64 YRS 2022-02-27 00:00:00 Completed [facility] Influenza Virus Vaccine Quad IM, Preserv and ABX Free 6 MO-64 YRS 2022-02-27 00:00:00 Completed [facility] Influenza Virus Vaccine Quad IM, Preserv and ABX Free 6 MO-64 YRS 2022-02-27 00:00:00 Completed [facility] Influenza Virus Vaccine Quad IM, Preserv and ABX Free 6 MO-64 YRS 2022-02-27 00:00:00 Completed [facility] Influenza Virus Vaccine Quad IM, Preserv and ABX Free 6 MO-64 YRS 2022-02-27 00:00:00 Completed [facility] Influenza Virus Vaccine Quad IM, Preserv and ABX Free 6 MO-64 YRS 2022-02-27 00:00:00 Completed [facility] Influenza Virus Vaccine Quad IM, Preserv and ABX Free 6 MO-64 YRS 2022-02-27 00:00:00 Completed [facility] Influenza Virus Vaccine Quad IM, Preserv and ABX Free 6 MO-64 YRS 2022-02-27 00:00:00 Completed [facility] Influenza Virus Vaccine Quad IM, Preserv and ABX Free 6 MO-64 YRS 2022-02-27 00:00:00 Completed [facility] Influenza Virus Vaccine Quad IM, Preserv and ABX Free 6 MO-64 YRS 2022-02-27 00:00:00 Completed [facility] Influenza Virus Vaccine Quad IM, Preserv and ABX Free 6 MO-64 YRS 2022-02-27 00:00:00 Completed [facility] Influenza Virus Vaccine Quad IM, Preserv and ABX Free 6 MO-64 YRS 2022-02-27 00:00:00 Completed [facility] Influenza Virus Vaccine Quad IM, Preserv and ABX Free 6 MO-64 YRS 2022-02-27 00:00:00 Completed [facility] Influenza Virus Vaccine Quad IM, Preserv and ABX Free 6 MO-64 YRS 2022-02-27 00:00:00 Completed [facility] Influenza Virus Vaccine Quad IM, Preserv and ABX Free 6 MO-64 YRS 2022-02-27 00:00:00 Completed [facility] Influenza Virus Vaccine Quad IM, Preserv and ABX Free 6 MO-64 YRS 2022-02-27 00:00:00 Completed [facility] Influenza Virus Vaccine Quad IM, Preserv and ABX Free 6 MO-64 YRS 2022-02-27 00:00:00 Completed [facility] Influenza Virus Vaccine Quad IM, Preserv and ABX Free 6 MO-64 YRS (FLUCELVAX) 2022-02-27 00:00:00 Completed [facility] Influenza Virus Vaccine Quad IM, Preserv and ABX Free 6 MO-64 YRS (FLUCELVAX) 2022-02-27 00:00:00 Completed [facility] Influenza Virus Vaccine Quad IM, Preserv and ABX Free 6 MO-64 YRS (FLUCELVAX) 2022-02-27 00:00:00 Completed [facility] Influenza Virus Vaccine Quad .5 mL IM 6+ MO 2022-02-21 00:00:00 Completed [facility] Influenza Virus Vaccine Quad .5 mL IM 6+ MO 2022-02-21 00:00:00 Completed [facility] Influenza Virus Vaccine Quad .5 mL IM 6+ MO 2022-02-21 00:00:00 Completed [facility] Influenza Virus Vaccine Quad .5 mL IM 6+ MO 2022-02-21 00:00:00 Completed [facility] Influenza Virus Vaccine Quad .5 mL IM 6+ MO 2022-02-21 00:00:00 Completed [facility] Influenza Virus Vaccine Quad .5 mL IM 6+ MO 2022-02-21 00:00:00 Completed [facility] Influenza Virus Vaccine Quad .5 mL IM 6+ MO 2022-02-21 00:00:00 Completed [facility] Influenza Virus Vaccine Quad .5 mL IM 6+ MO 2022-02-21 00:00:00 Completed [facility] Influenza Virus Vaccine Quad .5 mL IM 6+ MO 2022-02-21 00:00:00 Completed [facility] Influenza Virus Vaccine Quad .5 mL IM 6+ MO 2022-02-21 00:00:00 Completed [facility] Influenza Virus Vaccine Quad .5 mL IM 6+ MO 2022-02-21 00:00:00 Completed [facility] Influenza Virus Vaccine Quad .5 mL IM 6+ MO 2022-02-21 00:00:00 Completed [facility] Influenza Virus Vaccine Quad .5 mL IM 6+ MO (FLUZONE/FLULAVAL/F LUARIX) 2022-02-21 00:00:00 Completed [facility] Influenza Virus Vaccine Quad .5 mL IM 6+ MO (FLUZONE/FLULAVAL/F LUARIX) 2022-02-21 00:00:00 Completed [facility] Influenza Virus Vaccine Quad .5 mL IM 6+ MO (FLUZONE/FLULAVAL/F LUARIX) 2022-02-21 00:00:00 Completed [facility] Influenza Virus Vaccine 2021-06-11 00:00:00 Completed [facility] Influenza Virus Vaccine 2021-06-11 00:00:00 Completed [facility] Influenza Virus Vaccine 2021-06-11 00:00:00 Completed [facility] Influenza Virus Vaccine 2021-06-11 00:00:00 Completed [facility] Influenza Virus Vaccine 2021-06-11 00:00:00 Completed [facility] Influenza Virus Vaccine 2021-06-11 00:00:00 Completed [facility] Influenza Virus Vaccine 2021-06-11 00:00:00 Completed [facility] Influenza Virus Vaccine 2021-06-11 00:00:00 Completed [facility] Influenza Virus Vaccine 2021-06-11 00:00:00 Completed [facility] Influenza Virus Vaccine 2021-06-11 00:00:00 Completed [facility] Influenza Virus Vaccine 2021-06-11 00:00:00 Completed [facility] Influenza Virus Vaccine 2021-06-11 00:00:00 Completed [facility] Influenza Virus Vaccine 2021-06-11 00:00:00 Completed [facility] Influenza Virus Vaccine 2021-06-11 00:00:00 Completed [facility] Influenza Virus Vaccine 2021-06-11 00:00:00 Completed [facility] Influenza Virus Vaccine 2021-06-11 00:00:00 Completed [facility] Influenza Virus Vaccine 2021-06-11 00:00:00 Completed [facility] Influenza Virus Vaccine 2021-06-11 00:00:00 Completed [facility] Influenza Virus Vaccine 2021-06-11 00:00:00 Completed [facility] Influenza Virus Vaccine 2021-06-11 00:00:00 Completed [facility] Influenza Virus Vaccine 2021-06-11 00:00:00 Completed [facility] Influenza Virus Vaccine 2021-06-11 00:00:00 Completed [facility] Influenza Virus Vaccine 2021-06-11 00:00:00 Completed [facility] Influenza Virus Vaccine 2021-06-11 00:00:00 Completed [facility] Influenza Virus Vaccine 2021-06-11 00:00:00 Completed [facility] Influenza Virus Vaccine 2021-06-11 00:00:00 Completed [facility] Influenza Virus Vaccine 2021-06-11 00:00:00 Completed [facility] Influenza Virus Vaccine 2021-06-11 00:00:00 Completed [facility] Influenza Virus Vaccine 2021-06-11 00:00:00 Completed [facility] Influenza Virus Vaccine 2021-06-11 00:00:00 Completed [facility] Influenza Virus Vaccine 2021-06-11 00:00:00 Completed [facility] Influenza Virus Vaccine 2021-06-11 00:00:00 Completed [facility] Influenza Virus Vaccine 2021-06-11 00:00:00 Completed [facility] Influenza Virus Vaccine 2021-06-11 00:00:00 Completed [facility] Influenza Virus Vaccine 2021-06-11 00:00:00 Completed [facility] Influenza Virus Vaccine 2021-06-11 00:00:00 Completed [facility] Influenza Virus Vaccine 2021-06-11 00:00:00 Completed [facility] Influenza Virus Vaccine 2021-06-11 00:00:00 Completed [facility] Influenza Virus Vaccine 2021-06-11 00:00:00 Completed [facility] Influenza Virus Vaccine 2021-06-11 00:00:00 Completed [facility] Influenza Virus Vaccine 2021-06-11 00:00:00 Completed [facility] Influenza Virus Vaccine Quad .5 mL IM 6+ MO 2021-06-11 00:00:00 Completed [facility] Influenza Virus Vaccine 2021-06-11 00:00:00 Completed [facility] Influenza Virus Vaccine Quad .5 mL IM 6+ MO 2021-06-11 00:00:00 Completed [facility] Influenza Virus Vaccine 2021-06-11 00:00:00 Completed [facility] Influenza Virus Vaccine Quad .5 mL IM 6+ MO 2021-06-11 00:00:00 Completed [facility] Influenza Virus Vaccine 2021-06-11 00:00:00 Completed [facility] Influenza Virus Vaccine Quad .5 mL IM 6+ MO 2021-06-11 00:00:00 Completed [facility] Influenza Virus Vaccine 2021-06-11 00:00:00 Completed [facility] Influenza Virus Vaccine Quad .5 mL IM 6+ MO 2021-06-11 00:00:00 Completed [facility] Influenza Virus Vaccine 2021-06-11 00:00:00 Completed [facility] Influenza Virus Vaccine Quad .5 mL IM 6+ MO 2021-06-11 00:00:00 Completed [facility] Influenza Virus Vaccine 2021-06-11 00:00:00 Completed [facility] Influenza Virus Vaccine Quad .5 mL IM 6+ MO 2021-06-11 00:00:00 Completed [facility] Influenza Virus Vaccine 2021-06-11 00:00:00 Completed [facility] Influenza Virus Vaccine Quad .5 mL IM 6+ MO 2021-06-11 00:00:00 Completed [facility] Influenza Virus Vaccine 2021-06-11 00:00:00 Completed [facility] Influenza Virus Vaccine Quad .5 mL IM 6+ MO 2021-06-11 00:00:00 Completed [facility] Influenza Virus Vaccine 2021-06-11 00:00:00 Completed [facility] Influenza Virus Vaccine Quad .5 mL IM 6+ MO 2021-06-11 00:00:00 Completed [facility] Influenza Virus Vaccine 2021-06-11 00:00:00 Completed [facility] Influenza Virus Vaccine Quad .5 mL IM 6+ MO 2021-06-11 00:00:00 Completed [facility] Influenza Virus Vaccine 2021-06-11 00:00:00 Completed [facility] Influenza Virus Vaccine Quad .5 mL IM 6+ MO 2021-06-11 00:00:00 Completed [facility] Influenza Virus Vaccine 2021-06-11 00:00:00 Completed [facility] Influenza Virus Vaccine Quad .5 mL IM 6+ MO (FLUZONE/FLULAVAL/F LUARIX) 2021-06-11 00:00:00 Completed [facility] Influenza Virus Vaccine 2021-06-11 00:00:00 Completed [facility] Influenza Virus Vaccine Quad .5 mL IM 6+ MO (FLUZONE/FLULAVAL/F LUARIX) 2021-06-11 00:00:00 Completed [facility] Influenza Virus Vaccine 2021-06-11 00:00:00 Completed [facility] Influenza Virus Vaccine Quad .5 mL IM 6+ MO (FLUZONE/FLULAVAL/F LUARIX) 2021-06-11 00:00:00 Completed [facility] Influenza Virus Vaccine 2020-05-19 00:00:00 Completed [facility] Influenza Virus Vaccine 2020-05-19 00:00:00 Completed [facility] Influenza Virus Vaccine 2020-05-19 00:00:00 Completed [facility] Influenza Virus Vaccine 2020-05-19 00:00:00 Completed [facility] Influenza Virus Vaccine 2020-05-19 00:00:00 Completed [facility] Influenza Virus Vaccine 2020-05-19 00:00:00 Completed [facility] Influenza Virus Vaccine 2020-05-19 00:00:00 Completed [facility] Influenza Virus Vaccine 2020-05-19 00:00:00 Completed [facility] Influenza Virus Vaccine 2020-05-19 00:00:00 Completed [facility] Influenza Virus Vaccine 2020-05-19 00:00:00 Completed [facility] Influenza Virus Vaccine 2020-05-19 00:00:00 Completed [facility] Influenza Virus Vaccine 2020-05-19 00:00:00 Completed [facility] Influenza Virus Vaccine 2020-05-19 00:00:00 Completed [facility] Influenza Virus Vaccine 2020-05-19 00:00:00 Completed [facility] Influenza Virus Vaccine 2020-05-19 00:00:00 Completed [facility] Influenza Virus Vaccine 2020-05-19 00:00:00 Completed [facility] Influenza Virus Vaccine 2020-05-19 00:00:00 Completed [facility] Influenza Virus Vaccine 2020-05-19 00:00:00 Completed [facility] Influenza Virus Vaccine 2020-05-19 00:00:00 Completed [facility] Influenza Virus Vaccine 2020-05-19 00:00:00 Completed [facility] Influenza Virus Vaccine 2020-05-19 00:00:00 Completed [facility] Influenza Virus Vaccine 2020-05-19 00:00:00 Completed [facility] Influenza Virus Vaccine 2020-05-19 00:00:00 Completed [facility] Influenza Virus Vaccine 2020-05-19 00:00:00 Completed [facility] Influenza Virus Vaccine 2020-05-19 00:00:00 Completed [facility] Influenza Virus Vaccine 2020-05-19 00:00:00 Completed [facility] Influenza Virus Vaccine 2020-05-19 00:00:00 Completed [facility] Influenza Virus Vaccine 2020-05-19 00:00:00 Completed [facility] Influenza Virus Vaccine 2020-05-19 00:00:00 Completed [facility] Influenza Virus Vaccine 2020-05-19 00:00:00 Completed [facility] Influenza Virus Vaccine 2020-05-19 00:00:00 Completed [facility] Influenza Virus Vaccine 2020-05-19 00:00:00 Completed [facility] Influenza Virus Vaccine 2020-05-19 00:00:00 Completed [facility] Influenza Virus Vaccine 2020-05-19 00:00:00 Completed [facility] Influenza Virus Vaccine 2020-05-19 00:00:00 Completed [facility] Influenza Virus Vaccine 2020-05-19 00:00:00 Completed [facility] Influenza Virus Vaccine 2020-05-19 00:00:00 Completed [facility] Influenza Virus Vaccine 2020-05-19 00:00:00 Completed [facility] Influenza Virus Vaccine 2020-05-19 00:00:00 Completed [facility] Influenza Virus Vaccine 2020-05-19 00:00:00 Completed [facility] Influenza Virus Vaccine 2020-05-19 00:00:00 Completed [facility] Influenza Virus Vaccine 2020-05-19 00:00:00 Completed [facility] Influenza Virus Vaccine 2020-05-19 00:00:00 Completed [facility] Influenza Virus Vaccine 2020-05-19 00:00:00 Completed [facility] Influenza Virus Vaccine 2020-05-19 00:00:00 Completed [facility] Influenza Virus Vaccine 2020-05-19 00:00:00 Completed [facility] Influenza Virus Vaccine 2020-05-19 00:00:00 Completed [facility] Influenza Virus Vaccine 2020-05-19 00:00:00 Completed [facility] Influenza Virus Vaccine 2020-05-19 00:00:00 Completed [facility] Influenza Virus Vaccine 2020-05-19 00:00:00 Completed [facility] Influenza Virus Vaccine 2020-05-19 00:00:00 Completed [facility] Influenza Virus Vaccine 2020-05-19 00:00:00 Completed [facility] Influenza Virus Vaccine 2020-05-19 00:00:00 Completed [facility] Influenza Virus Vaccine 2020-05-19 00:00:00 Completed [facility] Influenza Virus Vaccine 2020-05-19 00:00:00 Completed [facility] Influenza Virus Vaccine Recomb Quad IM, Preserv and ABX Free 18-64 YRS 2020-05-16 00:00:00 Completed [facility] Influenza Virus Vaccine Recomb Quad IM, Preserv and ABX Free 18-64 YRS 2020-05-16 00:00:00 Completed [facility] Influenza Virus Vaccine Recomb Quad IM, Preserv and ABX Free 18-64 YRS 2020-05-16 00:00:00 Completed [facility] Influenza Virus Vaccine Recomb Quad IM, Preserv and ABX Free 18-64 YRS 2020-05-16 00:00:00 Completed [facility] Influenza Virus Vaccine Recomb Quad IM, Preserv and ABX Free 18-64 YRS 2020-05-16 00:00:00 Completed [facility] Influenza Virus Vaccine Recomb Quad IM, Preserv and ABX Free 18-64 YRS 2020-05-16 00:00:00 Completed [facility] Influenza Virus Vaccine Recomb Quad IM, Preserv and ABX Free 18-64 YRS 2020-05-16 00:00:00 Completed [facility] Influenza Virus Vaccine Recomb Quad IM, Preserv and ABX Free 18-64 YRS 2020-05-16 00:00:00 Completed [facility] Influenza Virus Vaccine Recomb Quad IM, Preserv and ABX Free 18-64 YRS 2020-05-16 00:00:00 Completed [facility] Influenza Virus Vaccine Recomb Quad IM, Preserv and ABX Free 18-64 YRS 2020-05-16 00:00:00 Completed [facility] Influenza Virus Vaccine Recomb Quad IM, Preserv and ABX Free 18-64 YRS 2020-05-16 00:00:00 Completed [facility] Influenza Virus Vaccine Recomb Quad IM, Preserv and ABX Free 18-64 YRS 2020-05-16 00:00:00 Completed [facility] Influenza Virus Vaccine Recomb Quad IM, Preserv and ABX Free 18-64 YRS 2020-05-16 00:00:00 Completed [facility] Influenza Virus Vaccine Recomb Quad IM, Preserv and ABX Free 18-64 YRS 2020-05-16 00:00:00 Completed [facility] Influenza Virus Vaccine Recomb Quad IM, Preserv and ABX Free 18-64 YRS 2020-05-16 00:00:00 Completed [facility] Influenza Virus Vaccine Recomb Quad IM, Preserv and ABX Free 18-64 YRS 2020-05-16 00:00:00 Completed [facility] Influenza Virus Vaccine Recomb Quad IM, Preserv and ABX Free 18-64 YRS 2020-05-16 00:00:00 Completed [facility] Influenza Virus Vaccine Recomb Quad IM, Preserv and ABX Free 18-64 YRS 2020-05-16 00:00:00 Completed [facility] Influenza Virus Vaccine Recomb Quad IM, Preserv and ABX Free 18-64 YRS 2020-05-16 00:00:00 Completed [facility] Influenza Virus Vaccine Recomb Quad IM, Preserv and ABX Free 18-64 YRS 2020-05-16 00:00:00 Completed [facility] Influenza Virus Vaccine Recomb Quad IM, Preserv and ABX Free 18-64 YRS 2020-05-16 00:00:00 Completed [facility] Influenza Virus Vaccine Recomb Quad IM, Preserv and ABX Free 18-64 YRS 2020-05-16 00:00:00 Completed [facility] Influenza Virus Vaccine Recomb Quad IM, Preserv and ABX Free 18-64 YRS 2020-05-16 00:00:00 Completed [facility] Influenza Virus Vaccine Recomb Quad IM, Preserv and ABX Free 18-64 YRS 2020-05-16 00:00:00 Completed [facility] Influenza Virus Vaccine Recomb Quad IM, Preserv and ABX Free 18-64 YRS 2020-05-16 00:00:00 Completed [facility] Influenza Virus Vaccine Recomb Quad IM, Preserv and ABX Free 18-64 YRS 2020-05-16 00:00:00 Completed [facility] Influenza Virus Vaccine Recomb Quad IM, Preserv and ABX Free 18-64 YRS 2020-05-16 00:00:00 Completed [facility] Influenza Virus Vaccine Recomb Quad IM, Preserv and ABX Free 18-64 YRS 2020-05-16 00:00:00 Completed [facility] Influenza Virus Vaccine Recomb Quad IM, Preserv and ABX Free 18-64 YRS 2020-05-16 00:00:00 Completed [facility] Influenza Virus Vaccine Recomb Quad IM, Preserv and ABX Free 18-64 YRS 2020-05-16 00:00:00 Completed [facility] Influenza Virus Vaccine Recomb Quad IM, Preserv and ABX Free 18-64 YRS 2020-05-16 00:00:00 Completed [facility] Influenza Virus Vaccine Recomb Quad IM, Preserv and ABX Free 18-64 YRS 2020-05-16 00:00:00 Completed [facility] Influenza Virus Vaccine Recomb Quad IM, Preserv and ABX Free 18-64 YRS 2020-05-16 00:00:00 Completed [facility] Influenza Virus Vaccine Recomb Quad IM, Preserv and ABX Free 18-64 YRS 2020-05-16 00:00:00 Completed [facility] Influenza Virus Vaccine Recomb Quad IM, Preserv and ABX Free 18-64 YRS 2020-05-16 00:00:00 Completed [facility] Influenza Virus Vaccine Recomb Quad IM, Preserv and ABX Free 18-64 YRS 2020-05-16 00:00:00 Completed [facility] Influenza Virus Vaccine Recomb Quad IM, Preserv and ABX Free 18-64 YRS 2020-05-16 00:00:00 Completed [facility] Influenza Virus Vaccine Recomb Quad IM, Preserv and ABX Free 18-64 YRS 2020-05-16 00:00:00 Completed [facility] Influenza Virus Vaccine Recomb Quad IM, Preserv and ABX Free 18-64 YRS 2020-05-16 00:00:00 Completed [facility] Influenza Virus Vaccine Recomb Quad IM, Preserv and ABX Free 18-64 YRS 2020-05-16 00:00:00 Completed [facility] Influenza Virus Vaccine Recomb Quad IM, Preserv and ABX Free 18-64 YRS 2020-05-16 00:00:00 Completed [facility] Influenza Virus Vaccine Recomb Quad IM, Preserv and ABX Free 18-64 YRS 2020-05-16 00:00:00 Completed [facility] Influenza Virus Vaccine Recomb Quad IM, Preserv and ABX Free 18-64 YRS 2020-05-16 00:00:00 Completed [facility] Influenza Virus Vaccine Recomb Quad IM, Preserv and ABX Free 18-64 YRS 2020-05-16 00:00:00 Completed [facility] Influenza Virus Vaccine Recomb Quad IM, Preserv and ABX Free 18-64 YRS 2020-05-16 00:00:00 Completed [facility] Influenza Virus Vaccine Recomb Quad IM, Preserv and ABX Free 18-64 YRS 2020-05-16 00:00:00 Completed [facility] Influenza Virus Vaccine Recomb Quad IM, Preserv and ABX Free 18-64 YRS 2020-05-16 00:00:00 Completed [facility] Influenza Virus Vaccine Recomb Quad IM, Preserv and ABX Free 18-64 YRS 2020-05-16 00:00:00 Completed [facility] Influenza Virus Vaccine Recomb Quad IM, Preserv and ABX Free 18-64 YRS 2020-05-16 00:00:00 Completed [facility] Influenza Virus Vaccine Recomb Quad IM, Preserv and ABX Free 18-64 YRS 2020-05-16 00:00:00 Completed [facility] Influenza Virus Vaccine Recomb Quad IM, Preserv and ABX Free 18-64 YRS 2020-05-16 00:00:00 Completed [facility] Influenza Virus Vaccine Recomb Quad IM, Preserv and ABX Free 18-64 YRS 2020-05-16 00:00:00 Completed [facility] Influenza Virus Vaccine Recomb Quad IM, Preserv and ABX Free 18-64 YRS 2020-05-16 00:00:00 Completed [facility] Influenza Virus Vaccine Recomb Quad IM, Preserv and ABX Free 18-64 YRS 2020-05-16 00:00:00 Completed [facility] Influenza Virus Vaccine Recomb Quad IM, Preserv and ABX Free 18-64 YRS 2020-05-16 00:00:00 Completed [facility] TDAP (ADACEL) VACCINE 2019-05-21 00:00:00 Completed [facility] TDAP (ADACEL) VACCINE 2019-05-21 00:00:00 Completed [facility] TDAP (ADACEL) VACCINE 2019-05-21 00:00:00 Completed [facility] TDAP (ADACEL) VACCINE 2019-05-21 00:00:00 Completed [facility] TDAP (ADACEL) VACCINE 2019-05-21 00:00:00 Completed [facility] TDAP (ADACEL) VACCINE 2019-05-21 00:00:00 Completed [facility] TDAP (ADACEL) VACCINE 2019-05-21 00:00:00 Completed [facility] TDAP (ADACEL) VACCINE 2019-05-21 00:00:00 Completed [facility] TDAP (ADACEL) VACCINE 2019-05-21 00:00:00 Completed [facility] TDAP (ADACEL) VACCINE 2019-05-21 00:00:00 Completed [facility] TDAP (ADACEL) VACCINE 2019-05-21 00:00:00 Completed [facility] TDAP (ADACEL) VACCINE 2019-05-21 00:00:00 Completed [facility] TDAP (ADACEL) VACCINE 2019-05-21 00:00:00 Completed [facility] TDAP (ADACEL) VACCINE 2019-05-21 00:00:00 Completed [facility] TDAP (ADACEL) VACCINE 2019-05-21 00:00:00 Completed [facility] TDAP (ADACEL) VACCINE 2019-05-21 00:00:00 Completed [facility] TDAP (ADACEL) VACCINE 2019-05-21 00:00:00 Completed [facility] TDAP (ADACEL) VACCINE 2019-05-21 00:00:00 Completed [facility] TDAP (ADACEL) VACCINE 2019-05-21 00:00:00 Completed [facility] TDAP (ADACEL) VACCINE 2019-05-21 00:00:00 Completed [facility] TDAP (ADACEL) VACCINE 2019-05-21 00:00:00 Completed [facility] TDAP (ADACEL) VACCINE 2019-05-21 00:00:00 Completed [facility] TDAP (ADACEL) VACCINE 2019-05-21 00:00:00 Completed [facility] TDAP (ADACEL) VACCINE 2019-05-21 00:00:00 Completed [facility] TDAP (ADACEL) VACCINE 2019-05-21 00:00:00 Completed [facility] TDAP (ADACEL) VACCINE 2019-05-21 00:00:00 Completed [facility] TDAP (ADACEL) VACCINE 2019-05-21 00:00:00 Completed [facility] TDAP (ADACEL) VACCINE 2019-05-21 00:00:00 Completed [facility] TDAP (ADACEL) VACCINE 2019-05-21 00:00:00 Completed [facility] TDAP (ADACEL) VACCINE 2019-05-21 00:00:00 Completed [facility] TDAP (ADACEL) VACCINE 2019-05-21 00:00:00 Completed [facility] TDAP (ADACEL) VACCINE 2019-05-21 00:00:00 Completed [facility] TDAP (ADACEL) VACCINE 2019-05-21 00:00:00 Completed [facility] TDAP (ADACEL) VACCINE 2019-05-21 00:00:00 Completed [facility] TDAP (ADACEL) VACCINE 2019-05-21 00:00:00 Completed [facility] TDAP (ADACEL) VACCINE 2019-05-21 00:00:00 Completed [facility] TDAP (ADACEL) VACCINE 2019-05-21 00:00:00 Completed [facility] TDAP (ADACEL) VACCINE 2019-05-21 00:00:00 Completed [facility] TDAP (ADACEL) VACCINE 2019-05-21 00:00:00 Completed [facility] TDAP (ADACEL) VACCINE 2019-05-21 00:00:00 Completed [facility] TDAP (ADACEL) VACCINE 2019-05-21 00:00:00 Completed [facility] TDAP (ADACEL) VACCINE 2019-05-21 00:00:00 Completed [facility] TDAP (ADACEL) VACCINE 2019-05-21 00:00:00 Completed [facility] TDAP (ADACEL) VACCINE 2019-05-21 00:00:00 Completed [facility] TDAP (ADACEL) VACCINE 2019-05-21 00:00:00 Completed [facility] TDAP (ADACEL) VACCINE 2019-05-21 00:00:00 Completed [facility] TDAP (ADACEL) VACCINE 2019-05-21 00:00:00 Completed [facility] TDAP (ADACEL) VACCINE 2019-05-21 00:00:00 Completed [facility] TDAP (ADACEL) VACCINE 2019-05-21 00:00:00 Completed [facility] TDAP (ADACEL) VACCINE 2019-05-21 00:00:00 Completed [facility] TDAP (ADACEL) VACCINE 2019-05-21 00:00:00 Completed [facility] TDAP (ADACEL) VACCINE 2019-05-21 00:00:00 Completed [facility] TDAP (ADACEL) VACCINE 2019-05-21 00:00:00 Completed [facility] TDAP (ADACEL) VACCINE 2019-05-21 00:00:00 Completed [facility] TDAP (ADACEL) VACCINE 2019-05-21 00:00:00 Completed [facility] Influenza Virus Vaccine Quad .5 mL IM 6+ MO 2019-02-06 00:00:00 Completed [facility] Influenza Virus Vaccine Quad .5 mL IM 6+ MO 2019-02-06 00:00:00 Completed [facility] Influenza Virus Vaccine Quad .5 mL IM 6+ MO 2019-02-06 00:00:00 Completed [facility] Influenza Virus Vaccine Quad .5 mL IM 6+ MO 2019-02-06 00:00:00 Completed [facility] Influenza Virus Vaccine Quad .5 mL IM 6+ MO 2019-02-06 00:00:00 Completed [facility] Influenza Virus Vaccine Quad .5 mL IM 6+ MO 2019-02-06 00:00:00 Completed [facility] Influenza Virus Vaccine Quad .5 mL IM 6+ MO 2019-02-06 00:00:00 Completed [facility] Influenza Virus Vaccine Quad .5 mL IM 6+ MO 2019-02-06 00:00:00 Completed [facility] Influenza Virus Vaccine Quad .5 mL IM 6+ MO 2019-02-06 00:00:00 Completed [facility] Influenza Virus Vaccine Quad .5 mL IM 6+ MO 2019-02-06 00:00:00 Completed [facility] Influenza Virus Vaccine Quad .5 mL IM 6+ MO 2019-02-06 00:00:00 Completed [facility] Influenza Virus Vaccine Quad .5 mL IM 6+ MO 2019-02-06 00:00:00 Completed [facility] Influenza Virus Vaccine Quad .5 mL IM 6+ MO 2019-02-06 00:00:00 Completed [facility] Influenza Virus Vaccine Quad .5 mL IM 6+ MO 2019-02-06 00:00:00 Completed [facility] Influenza Virus Vaccine Quad .5 mL IM 6+ MO 2019-02-06 00:00:00 Completed [facility] Influenza Virus Vaccine Quad .5 mL IM 6+ MO 2019-02-06 00:00:00 Completed [facility] Influenza Virus Vaccine Quad .5 mL IM 6+ MO 2019-02-06 00:00:00 Completed [facility] Influenza Virus Vaccine Quad .5 mL IM 6+ MO 2019-02-06 00:00:00 Completed [facility] Influenza Virus Vaccine Quad .5 mL IM 6+ MO 2019-02-06 00:00:00 Completed [facility] Influenza Virus Vaccine Quad .5 mL IM 6+ MO 2019-02-06 00:00:00 Completed [facility] Influenza Virus Vaccine Quad .5 mL IM 6+ MO 2019-02-06 00:00:00 Completed [facility] Influenza Virus Vaccine Quad .5 mL IM 6+ MO 2019-02-06 00:00:00 Completed [facility] Influenza Virus Vaccine Quad .5 mL IM 6+ MO 2019-02-06 00:00:00 Completed [facility] Influenza Virus Vaccine Quad .5 mL IM 6+ MO 2019-02-06 00:00:00 Completed [facility] Influenza Virus Vaccine Quad .5 mL IM 6+ MO 2019-02-06 00:00:00 Completed [facility] Influenza Virus Vaccine Quad .5 mL IM 6+ MO 2019-02-06 00:00:00 Completed [facility] Influenza Virus Vaccine Quad .5 mL IM 6+ MO 2019-02-06 00:00:00 Completed [facility] Influenza Virus Vaccine Quad .5 mL IM 6+ MO 2019-02-06 00:00:00 Completed [facility] Influenza Virus Vaccine Quad .5 mL IM 6+ MO 2019-02-06 00:00:00 Completed [facility] Influenza Virus Vaccine Quad .5 mL IM 6+ MO 2019-02-06 00:00:00 Completed [facility] Influenza Virus Vaccine Quad .5 mL IM 6+ MO 2019-02-06 00:00:00 Completed [facility] Influenza Virus Vaccine Quad .5 mL IM 6+ MO 2019-02-06 00:00:00 Completed [facility] Influenza Virus Vaccine Quad .5 mL IM 6+ MO 2019-02-06 00:00:00 Completed [facility] Influenza Virus Vaccine Quad .5 mL IM 6+ MO 2019-02-06 00:00:00 Completed [facility] Influenza Virus Vaccine Quad .5 mL IM 6+ MO 2019-02-06 00:00:00 Completed [facility] Influenza Virus Vaccine Quad .5 mL IM 6+ MO 2019-02-06 00:00:00 Completed [facility] Influenza Virus Vaccine Quad .5 mL IM 6+ MO 2019-02-06 00:00:00 Completed [facility] Influenza Virus Vaccine Quad .5 mL IM 6+ MO 2019-02-06 00:00:00 Completed [facility] Influenza Virus Vaccine Quad .5 mL IM 6+ MO 2019-02-06 00:00:00 Completed [facility] Influenza Virus Vaccine Quad .5 mL IM 6+ MO 2019-02-06 00:00:00 Completed [facility] Influenza Virus Vaccine Quad .5 mL IM 6+ MO 2019-02-06 00:00:00 Completed [facility] Influenza Virus Vaccine Quad .5 mL IM 6+ MO 2019-02-06 00:00:00 Completed [facility] Influenza Virus Vaccine Quad .5 mL IM 6+ MO 2019-02-06 00:00:00 Completed [facility] Influenza Virus Vaccine Quad .5 mL IM 6+ MO 2019-02-06 00:00:00 Completed [facility] Influenza Virus Vaccine Quad .5 mL IM 6+ MO 2019-02-06 00:00:00 Completed [facility] Influenza Virus Vaccine Quad .5 mL IM 6+ MO 2019-02-06 00:00:00 Completed [facility] Influenza Virus Vaccine Quad .5 mL IM 6+ MO 2019-02-06 00:00:00 Completed [facility] Influenza Virus Vaccine Quad .5 mL IM 6+ MO 2019-02-06 00:00:00 Completed [facility] Influenza Virus Vaccine Quad .5 mL IM 6+ MO 2019-02-06 00:00:00 Completed [facility] Influenza Virus Vaccine Quad .5 mL IM 6+ MO 2019-02-06 00:00:00 Completed [facility] Influenza Virus Vaccine Quad .5 mL IM 6+ MO 2019-02-06 00:00:00 Completed [facility] Influenza Virus Vaccine Quad .5 mL IM 6+ MO 2019-02-06 00:00:00 Completed [facility] Influenza Virus Vaccine Quad .5 mL IM 6+ MO (FLUZONE/FLULAVAL/F LUARIX) 2019-02-06 00:00:00 Completed [facility] Influenza Virus Vaccine Quad .5 mL IM 6+ MO (FLUZONE/FLULAVAL/F LUARIX) 2019-02-06 00:00:00 Completed [facility] Influenza Virus Vaccine Quad .5 mL IM 6+ MO (FLUZONE/FLULAVAL/F LUARIX) 2019-02-06 00:00:00 Completed [facility] Influenza Virus Vaccine Quad .5 mL IM 6+ MO (FLUZONE/FLULAVAL/F LUARIX) Unknown Completed [facility] TDAP (ADACEL) VACCINE Unknown Completed [facility] Influenza Virus Vaccine Recomb Quad IM, Preserv and ABX Free 18-64 YRS Unknown Completed [facility] Influenza Virus Vaccine Unknown Completed [facility] Influenza Virus Vaccine Quad IM, Preserv and ABX Free 6 MO-64 YRS (FLUCELVAX) Unknown Completed [facility] Influenza Virus Vaccine Quad .5 mL IM 6+ MO (FLUZONE/FLULAVAL/F LUARIX) Unknown Completed [facility] TDAP (ADACEL) VACCINE Unknown Completed [facility] Influenza Virus Vaccine Recomb Quad IM, Preserv and ABX Free 18-64 YRS Unknown Completed [facility] Influenza Virus Vaccine Unknown Completed [facility] Influenza Virus Vaccine Quad IM, Preserv and ABX Free 6 MO-64 YRS (FLUCELVAX) Unknown Completed [facility] Influenza Virus Vaccine Quad .5 mL IM 6+ MO (FLUZONE/FLULAVAL/F LUARIX) Unknown Completed [facility] TDAP (ADACEL) VACCINE Unknown Completed [facility] Influenza Virus Vaccine Recomb Quad IM, Preserv and ABX Free 18-64 YRS Unknown Completed [facility] Influenza Virus Vaccine Unknown Completed [facility] Influenza Virus Vaccine Quad .5 mL IM 6+ MO (FLUZONE/FLULAVAL/F LUARIX) Unknown Completed [facility] TDAP (ADACEL) VACCINE Unknown Completed [facility] Influenza Virus Vaccine Recomb Quad IM, Preserv and ABX Free 18-64 YRS Unknown Completed [facility] Influenza Virus Vaccine Unknown Completed [facility] Influenza Virus Vaccine Quad .5 mL IM 6+ MO (FLUZONE/FLULAVAL/F LUARIX) Unknown Completed [facility] TDAP (ADACEL) VACCINE Unknown Completed [facility] Influenza Virus Vaccine Recomb Quad IM, Preserv and ABX Free 18-64 YRS Unknown Completed [facility] Influenza Virus Vaccine Unknown Completed [facility] Influenza Virus Vaccine Quad .5 mL IM 6+ MO (FLUZONE/FLULAVAL/F LUARIX) Unknown Completed [facility] TDAP (ADACEL) VACCINE Unknown Completed [facility] Influenza Virus Vaccine Recomb Quad IM, Preserv and ABX Free 18-64 YRS Unknown Completed [facility] Influenza Virus Vaccine Unknown Completed [facility] Influenza Virus Vaccine Quad .5 mL IM 6+ MO (FLUZONE/FLULAVAL/F LUARIX) Unknown Completed [facility] TDAP (ADACEL) VACCINE Unknown Completed [facility] Influenza Virus Vaccine Recomb Quad IM, Preserv and ABX Free 18-64 YRS Unknown Completed [facility] Influenza Virus Vaccine Unknown Completed [facility] Influenza Virus Vaccine Quad .5 mL IM 6+ MO (FLUZONE/FLULAVAL/F LUARIX) Unknown Completed [facility] TDAP (ADACEL) VACCINE Unknown Completed [facility] Influenza Virus Vaccine Recomb Quad IM, Preserv and ABX Free 18-64 YRS Unknown Completed [facility] Influenza Virus Vaccine Unknown Completed [facility] Influenza Virus Vaccine Quad .5 mL IM 6+ MO (FLUZONE/FLULAVAL/F LUARIX) Unknown Completed [facility] TDAP (ADACEL) VACCINE Unknown Completed [facility] Influenza Virus Vaccine Recomb Quad IM, Preserv and ABX Free 18-64 YRS Unknown Completed [facility] Influenza Virus Vaccine Unknown Completed [facility] Influenza Virus Vaccine Quad .5 mL IM 6+ MO (FLUZONE/FLULAVAL/F LUARIX) Unknown Completed [facility] TDAP (ADACEL) VACCINE Unknown Completed [facility] Influenza Virus Vaccine Recomb Quad IM, Preserv and ABX Free 18-64 YRS Unknown Completed [facility] Influenza Virus Vaccine Unknown Completed [facility] Influenza Virus Vaccine Quad .5 mL IM 6+ MO (FLUZONE/FLULAVAL/F LUARIX) Unknown Completed [facility] TDAP (ADACEL) VACCINE Unknown Completed [facility] Influenza Virus Vaccine Recomb Quad IM, Preserv and ABX Free 18-64 YRS Unknown Completed [facility] Influenza Virus Vaccine Unknown Completed [facility] Influenza Virus Vaccine Quad .5 mL IM 6+ MO (FLUZONE/FLULAVAL/F LUARIX) Unknown Completed [facility] TDAP (ADACEL) VACCINE Unknown Completed [facility] Influenza Virus Vaccine Recomb Quad IM, Preserv and ABX Free 18-64 YRS Unknown Completed [facility] Influenza Virus Vaccine Unknown Completed [facility] Influenza Virus Vaccine Quad .5 mL IM 6+ MO (FLUZONE/FLULAVAL/F LUARIX) Unknown Completed [facility] TDAP (ADACEL) VACCINE Unknown Completed [facility] Influenza Virus Vaccine Recomb Quad IM, Preserv and ABX Free 18-64 YRS Unknown Completed [facility] Influenza Virus Vaccine Unknown Completed [facility] Influenza Virus Vaccine Quad .5 mL IM 6+ MO (FLUZONE/FLULAVAL/F LUARIX) Unknown Completed [facility] TDAP (ADACEL) VACCINE Unknown Completed [facility] Influenza Virus Vaccine Recomb Quad IM, Preserv and ABX Free 18-64 YRS Unknown Completed [facility] Influenza Virus Vaccine Unknown Completed [facility] Influenza Virus Vaccine Quad .5 mL IM 6+ MO (FLUZONE/FLULAVAL/F LUARIX) Unknown Completed [facility] TDAP (ADACEL) VACCINE Unknown Completed [facility] Influenza Virus Vaccine Recomb Quad IM, Preserv and ABX Free 18-64 YRS Unknown Completed [facility] Influenza Virus Vaccine Unknown Completed [facility] Influenza Virus Vaccine Quad .5 mL IM 6+ MO (FLUZONE/FLULAVAL/F LUARIX) Unknown Completed [facility] TDAP (ADACEL) VACCINE Unknown Completed [facility] Influenza Virus Vaccine Recomb Quad IM, Preserv and ABX Free 18-64 YRS Unknown Completed [facility] Influenza Virus Vaccine Unknown Completed [facility] Influenza Virus Vaccine Quad .5 mL IM 6+ MO (FLUZONE/FLULAVAL/F LUARIX) Unknown Completed [facility] TDAP (ADACEL) VACCINE Unknown Completed [facility] Influenza Virus Vaccine Recomb Quad IM, Preserv and ABX Free 18-64 YRS Unknown Completed [facility] Influenza Virus Vaccine Unknown Completed [facility] Influenza Virus Vaccine Quad .5 mL IM 6+ MO (FLUZONE/FLULAVAL/F LUARIX) Unknown Completed [facility] TDAP (ADACEL) VACCINE Unknown Completed [facility] Influenza Virus Vaccine Recomb Quad IM, Preserv and ABX Free 18-64 YRS Unknown Completed [facility] Influenza Virus Vaccine Unknown Completed [facility] Influenza Virus Vaccine Quad .5 mL IM 6+ MO (FLUZONE/FLULAVAL/F LUARIX) Unknown Completed [facility] TDAP (ADACEL) VACCINE Unknown Completed [facility] Influenza Virus Vaccine Recomb Quad IM, Preserv and ABX Free 18-64 YRS Unknown Completed [facility] Influenza Virus Vaccine Unknown Completed [facility] Influenza Virus Vaccine Quad .5 mL IM 6+ MO (FLUZONE/FLULAVAL/F LUARIX) Unknown Completed [facility] TDAP (ADACEL) VACCINE Unknown Completed [facility] Influenza Virus Vaccine Recomb Quad IM, Preserv and ABX Free 18-64 YRS Unknown Completed [facility] Influenza Virus Vaccine Unknown Completed [facility] Influenza Virus Vaccine Quad .5 mL IM 6+ MO (FLUZONE/FLULAVAL/F LUARIX) Unknown Completed [facility] TDAP (ADACEL) VACCINE Unknown Completed [facility] Influenza Virus Vaccine Recomb Quad IM, Preserv and ABX Free 18-64 YRS Unknown Completed [facility] Influenza Virus Vaccine Unknown Completed [facility] Influenza Virus Vaccine Quad .5 mL IM 6+ MO (FLUZONE/FLULAVAL/F LUARIX) Unknown Completed [facility] TDAP (ADACEL) VACCINE Unknown Completed [facility] Influenza Virus Vaccine Recomb Quad IM, Preserv and ABX Free 18-64 YRS Unknown Completed [facility] Influenza Virus Vaccine Unknown Completed [facility] Influenza Virus Vaccine Quad .5 mL IM 6+ MO (FLUZONE/FLULAVAL/F LUARIX) Unknown Completed [facility] TDAP (ADACEL) VACCINE Unknown Completed [facility] Influenza Virus Vaccine Recomb Quad IM, Preserv and ABX Free 18-64 YRS Unknown Completed [facility] Influenza Virus Vaccine Unknown Completed [facility] Influenza Virus Vaccine Quad .5 mL IM 6+ MO (FLUZONE/FLULAVAL/F LUARIX) Unknown Completed [facility] TDAP (ADACEL) VACCINE Unknown Completed [facility] Influenza Virus Vaccine Recomb Quad IM, Preserv and ABX Free 18-64 YRS Unknown Completed [facility] Influenza Virus Vaccine Unknown Completed [facility] Influenza Virus Vaccine Quad .5 mL IM 6+ MO (FLUZONE/FLULAVAL/F LUARIX) Unknown Completed [facility] TDAP (ADACEL) VACCINE Unknown Completed [facility] Influenza Virus Vaccine Recomb Quad IM, Preserv and ABX Free 18-64 YRS Unknown Completed [facility] Influenza Virus Vaccine Unknown Completed [facility] Influenza Virus Vaccine Quad .5 mL IM 6+ MO (FLUZONE/FLULAVAL/F LUARIX) Unknown Completed [facility] TDAP (ADACEL) VACCINE Unknown Completed [facility] Influenza Virus Vaccine Recomb Quad IM, Preserv and ABX Free 18-64 YRS Unknown Completed [facility] Influenza Virus Vaccine Unknown Completed [facility] Influenza Virus Vaccine Quad .5 mL IM 6+ MO (FLUZONE/FLULAVAL/F LUARIX) Unknown Completed [facility] TDAP (ADACEL) VACCINE Unknown Completed [facility] Influenza Virus Vaccine Recomb Quad IM, Preserv and ABX Free 18-64 YRS Unknown Completed [facility] Influenza Virus Vaccine Unknown Completed [facility] Influenza Virus Vaccine Quad .5 mL IM 6+ MO (FLUZONE/FLULAVAL/F LUARIX) Unknown Completed [facility] TDAP (ADACEL) VACCINE Unknown Completed [facility] Influenza Virus Vaccine Recomb Quad IM, Preserv and ABX Free 18-64 YRS Unknown Completed [facility] Influenza Virus Vaccine Unknown Completed [facility] Influenza Virus Vaccine Quad .5 mL IM 6+ MO (FLUZONE/FLULAVAL/F LUARIX) Unknown Completed [facility] TDAP (ADACEL) VACCINE Unknown Completed [facility] Influenza Virus Vaccine Recomb Quad IM, Preserv and ABX Free 18-64 YRS Unknown Completed [facility] Influenza Virus Vaccine Unknown Completed [facility] Influenza Virus Vaccine Quad .5 mL IM 6+ MO (FLUZONE/FLULAVAL/F LUARIX) Unknown Completed [facility] TDAP (ADACEL) VACCINE Unknown Completed [facility] Influenza Virus Vaccine Recomb Quad IM, Preserv and ABX Free 18-64 YRS Unknown Completed [facility] Influenza Virus Vaccine Unknown Completed [facility] Influenza Virus Vaccine Quad .5 mL IM 6+ MO (FLUZONE/FLULAVAL/F LUARIX) Unknown Completed [facility] TDAP (ADACEL) VACCINE Unknown Completed [facility] Influenza Virus Vaccine Recomb Quad IM, Preserv and ABX Free 18-64 YRS Unknown Completed [facility] Influenza Virus Vaccine Unknown Completed [facility] Influenza Virus Vaccine Quad .5 mL IM 6+ MO (FLUZONE/FLULAVAL/F LUARIX) Unknown Completed [facility] TDAP (ADACEL) VACCINE Unknown Completed [facility] Influenza Virus Vaccine Recomb Quad IM, Preserv and ABX Free 18-64 YRS Unknown Completed [facility] Influenza Virus Vaccine Unknown Completed [facility] Influenza Virus Vaccine Quad .5 mL IM 6+ MO (FLUZONE/FLULAVAL/F LUARIX) Unknown Completed [facility] TDAP (ADACEL) VACCINE Unknown Completed [facility] Influenza Virus Vaccine Recomb Quad IM, Preserv and ABX Free 18-64 YRS Unknown Completed [facility] Influenza Virus Vaccine Unknown Completed [facility] Influenza Virus Vaccine Quad .5 mL IM 6+ MO (FLUZONE/FLULAVAL/F LUARIX) Unknown Completed [facility] TDAP (ADACEL) VACCINE Unknown Completed [facility] Influenza Virus Vaccine Recomb Quad IM, Preserv and ABX Free 18-64 YRS Unknown Completed [facility] Influenza Virus Vaccine Unknown Completed [facility] Influenza Virus Vaccine Quad .5 mL IM 6+ MO (FLUZONE/FLULAVAL/F LUARIX) Unknown Completed [facility] TDAP (ADACEL) VACCINE Unknown Completed [facility] Influenza Virus Vaccine Recomb Quad IM, Preserv and ABX Free 18-64 YRS Unknown Completed [facility] Influenza Virus Vaccine Unknown Completed [facility] Influenza Virus Vaccine Quad .5 mL IM 6+ MO (FLUZONE/FLULAVAL/F LUARIX) Unknown Completed [facility] TDAP (ADACEL) VACCINE Unknown Completed [facility] Influenza Virus Vaccine Recomb Quad IM, Preserv and ABX Free 18-64 YRS Unknown Completed [facility] Influenza Virus Vaccine Unknown Completed [facility] Influenza Virus Vaccine Quad .5 mL IM 6+ MO (FLUZONE/FLULAVAL/F LUARIX) Unknown Completed [facility] TDAP (ADACEL) VACCINE Unknown Completed [facility] Influenza Virus Vaccine Recomb Quad IM, Preserv and ABX Free 18-64 YRS Unknown Completed [facility] Influenza Virus Vaccine Unknown Completed [facility] Influenza Virus Vaccine Quad .5 mL IM 6+ MO (FLUZONE/FLULAVAL/F LUARIX) Unknown Completed [facility] TDAP (ADACEL) VACCINE Unknown Completed [facility] Influenza Virus Vaccine Recomb Quad IM, Preserv and ABX Free 18-64 YRS Unknown Completed [facility] Influenza Virus Vaccine Unknown Completed [facility] Influenza Virus Vaccine Quad .5 mL IM 6+ MO (FLUZONE/FLULAVAL/F LUARIX) Unknown Completed [facility] TDAP (ADACEL) VACCINE Unknown Completed [facility] Influenza Virus Vaccine Recomb Quad IM, Preserv and ABX Free 18-64 YRS Unknown Completed [facility] Influenza Virus Vaccine Unknown Completed [facility] Influenza Virus Vaccine Quad .5 mL IM 6+ MO (FLUZONE/FLULAVAL/F LUARIX) Unknown Completed [facility] TDAP (ADACEL) VACCINE Unknown Completed [facility] Influenza Virus Vaccine Recomb Quad IM, Preserv and ABX Free 18-64 YRS Unknown Completed [facility] Influenza Virus Vaccine Unknown Completed [facility] Influenza Virus Vaccine Quad .5 mL IM 6+ MO (FLUZONE/FLULAVAL/F LUARIX) Unknown Completed [facility] TDAP (ADACEL) VACCINE Unknown Completed [facility] Influenza Virus Vaccine Recomb Quad IM, Preserv and ABX Free 18-64 YRS Unknown Completed [facility] Influenza Virus Vaccine Unknown Completed [facility] Influenza Virus Vaccine Quad .5 mL IM 6+ MO (FLUZONE/FLULAVAL/F LUARIX) Unknown Completed [facility] TDAP (ADACEL) VACCINE Unknown Completed [facility] Influenza Virus Vaccine Recomb Quad IM, Preserv and ABX Free 18-64 YRS Unknown Completed [facility] Influenza Virus Vaccine Unknown Completed [facility] Influenza Virus Vaccine Quad .5 mL IM 6+ MO (FLUZONE/FLULAVAL/F LUARIX) Unknown Completed [facility] TDAP (ADACEL) VACCINE Unknown Completed [facility] Influenza Virus Vaccine Recomb Quad IM, Preserv and ABX Free 18-64 YRS Unknown Completed [facility] Influenza Virus Vaccine Unknown Completed [facility] Influenza Virus Vaccine Quad .5 mL IM 6+ MO (FLUZONE/FLULAVAL/F LUARIX) Unknown Completed [facility] TDAP (ADACEL) VACCINE Unknown Completed [facility] Influenza Virus Vaccine Recomb Quad IM, Preserv and ABX Free 18-64 YRS Unknown Completed [facility] Influenza Virus Vaccine Unknown Completed [facility] Influenza Virus Vaccine Quad .5 mL IM 6+ MO (FLUZONE/FLULAVAL/F LUARIX) Unknown Completed [facility] TDAP (ADACEL) VACCINE Unknown Completed [facility] Influenza Virus Vaccine Recomb Quad IM, Preserv and ABX Free 18-64 YRS Unknown Completed [facility] Influenza Virus Vaccine Unknown Completed [facility] Influenza Virus Vaccine Quad .5 mL IM 6+ MO (FLUZONE/FLULAVAL/F LUARIX) Unknown Completed [facility] TDAP (ADACEL) VACCINE Unknown Completed [facility] Influenza Virus Vaccine Recomb Quad IM, Preserv and ABX Free 18-64 YRS Unknown Completed [facility] Influenza Virus Vaccine Unknown Completed [facility] Influenza Virus Vaccine Quad .5 mL IM 6+ MO (FLUZONE/FLULAVAL/F LUARIX) Unknown Completed [facility] TDAP (ADACEL) VACCINE Unknown Completed [facility] Influenza Virus Vaccine Recomb Quad IM, Preserv and ABX Free 18-64 YRS Unknown Completed [facility] Influenza Virus Vaccine Unknown Completed [facility] Influenza Virus Vaccine Quad .5 mL IM 6+ MO (FLUZONE/FLULAVAL/F LUARIX) Unknown Completed [facility] TDAP (ADACEL) VACCINE Unknown Completed [facility] Influenza Virus Vaccine Recomb Quad IM, Preserv and ABX Free 18-64 YRS Unknown Completed [facility] Influenza Virus Vaccine Unknown Completed [facility] Influenza Virus Vaccine Quad .5 mL IM 6+ MO (FLUZONE/FLULAVAL/F LUARIX) Unknown Completed [facility] TDAP (ADACEL) VACCINE Unknown Completed [facility] Influenza Virus Vaccine Recomb Quad IM, Preserv and ABX Free 18-64 YRS Unknown Completed [facility] Influenza Virus Vaccine Unknown Completed [facility] Influenza Virus Vaccine Quad .5 mL IM 6+ MO (FLUZONE/FLULAVAL/F LUARIX) Unknown Completed [facility] TDAP (ADACEL) VACCINE Unknown Completed [facility] Influenza Virus Vaccine Recomb Quad IM, Preserv and ABX Free 18-64 YRS Unknown Completed [facility] Influenza Virus Vaccine Unknown Completed [facility] Influenza Virus Vaccine Quad .5 mL IM 6+ MO (FLUZONE/FLULAVAL/F LUARIX) Unknown Completed [facility] TDAP (ADACEL) VACCINE Unknown Completed [facility] Influenza Virus Vaccine Recomb Quad IM, Preserv and ABX Free 18-64 YRS Unknown Completed [facility] Influenza Virus Vaccine Unknown Completed [facility] Influenza Virus Vaccine Quad .5 mL IM 6+ MO (FLUZONE/FLULAVAL/F LUARIX) Unknown Completed [facility] TDAP (ADACEL) VACCINE Unknown Completed [facility] Influenza Virus Vaccine Recomb Quad IM, Preserv and ABX Free 18-64 YRS Unknown Completed [facility] Influenza Virus Vaccine Unknown Completed [facility] Influenza Virus Vaccine Quad .5 mL IM 6+ MO (FLUZONE/FLULAVAL/F LUARIX) Unknown Completed [facility] TDAP (ADACEL) VACCINE Unknown Completed [facility] Influenza Virus Vaccine Recomb Quad IM, Preserv and ABX Free 18-64 YRS Unknown Completed [facility] Influenza Virus Vaccine Unknown Completed [facility] Influenza Virus Vaccine Quad .5 mL IM 6+ MO (FLUZONE/FLULAVAL/F LUARIX) Unknown Completed [facility] TDAP (ADACEL) VACCINE Unknown Completed [facility] Influenza Virus Vaccine Recomb Quad IM, Preserv and ABX Free 18-64 YRS Unknown Completed [facility] Influenza Virus Vaccine Unknown Completed [facility] Influenza Virus Vaccine Quad .5 mL IM 6+ MO (FLUZONE/FLULAVAL/F LUARIX) Unknown Completed [facility] TDAP (ADACEL) VACCINE Unknown Completed [facility] Influenza Virus Vaccine Quad .5 mL IM 6+ MO (FLUZONE/FLULAVAL/F LUARIX) Unknown Completed [facility] TDAP (ADACEL) VACCINE Unknown Completed [facility] Influenza Virus Vaccine Quad .5 mL IM 6+ MO (FLUZONE/FLULAVAL/F LUARIX) Unknown Completed [facility] TDAP (ADACEL) VACCINE Unknown Completed [facility] Influenza Virus Vaccine Quad .5 mL IM 6+ MO (FLUZONE/FLULAVAL/F LUARIX) Unknown Completed [facility] TDAP (ADACEL) VACCINE Unknown Completed [facility] Influenza Virus Vaccine Quad .5 mL IM 6+ MO (FLUZONE/FLULAVAL/F LUARIX) Unknown Completed [facility] TDAP (ADACEL) VACCINE Unknown Completed [facility] Influenza Virus Vaccine Quad .5 mL IM 6+ MO (FLUZONE/FLULAVAL/F LUARIX) Unknown Completed [facility] TDAP (ADACEL) VACCINE Unknown Completed [facility] Influenza Virus Vaccine Quad .5 mL IM 6+ MO (FLUZONE/FLULAVAL/F LUARIX) Unknown Completed [facility] TDAP (ADACEL) VACCINE Unknown Completed [facility] Influenza Virus Vaccine Quad .5 mL IM 6+ MO (FLUZONE/FLULAVAL/F LUARIX) Unknown Completed [facility] TDAP (ADACEL) VACCINE Unknown Completed [facility] Influenza Virus Vaccine Quad .5 mL IM 6+ MO (FLUZONE/FLULAVAL/F LUARIX) Unknown Completed [facility] TDAP (ADACEL) VACCINE Unknown Completed [facility] Influenza Virus Vaccine Quad .5 mL IM 6+ MO (FLUZONE/FLULAVAL/F LUARIX) Unknown Completed [facility] TDAP (ADACEL) VACCINE Unknown Completed [facility] Influenza Virus Vaccine Recomb Quad IM, Preserv and ABX Free 18-64 YRS Unknown Completed [facility] Influenza Virus Vaccine Unknown Completed [facility] Influenza Virus Vaccine Quad IM, Preserv and ABX Free 6 MO-64 YRS (FLUCELVAX) Unknown Completed [facility] Influenza Virus Vaccine Quad .5 mL IM 6+ MO (FLUZONE/FLULAVAL/F LUARIX) Unknown Completed [facility] TDAP (ADACEL) VACCINE Unknown Completed [facility] Influenza Virus Vaccine Recomb Quad IM, Preserv and ABX Free 18-64 YRS Unknown Completed [facility] Influenza Virus Vaccine Unknown Completed [facility] Influenza Virus Vaccine Quad IM, Preserv and ABX Free 6 MO-64 YRS (FLUCELVAX) Unknown Completed [facility] Influenza Virus Vaccine Quad .5 mL IM 6+ MO (FLUZONE/FLULAVAL/F LUARIX) Unknown Completed [facility] TDAP (ADACEL) VACCINE Unknown Completed [facility] Influenza Virus Vaccine Recomb Quad IM, Preserv and ABX Free 18-64 YRS Unknown Completed [facility] Influenza Virus Vaccine Unknown Completed [facility] Influenza Virus Vaccine Quad IM, Preserv and ABX Free 6 MO-64 YRS (FLUCELVAX) Unknown Completed [facility] Vital Signs Vital Name Observation Time Observation Value Comments S ource Systolic blood pressure 2024-08-16 15:52:44 116 mm[Hg] [facility] Diastolic blood pressure 2024-08-16 15:52:44 70 mm[Hg] [facility] Heart rate 2024-08-16 15:52:44 62 /min [facility] Body temperature 2024-08-16 15:52:44 36.89 Irene [facility] Respiratory rate 2024-08-16 15:52:44 16 /min [facility] Oxygen saturation in Arterial blood by Pulse oximetry 2024-08-16 15:52:44 100 /min [facility] Body height 2024-08-16 13:09:00 154.9 cm [facility] Body weight 2024-08-16 13:09:00 58.968 kg [facility] BMI 2024-08-16 13:09:00 24.56 kg/m2 [facility] Systolic blood pressure 2024-08-02 17:21:00 119 mm[Hg] [facility] Diastolic blood pressure 2024-08-02 17:21:00 81 mm[Hg] [facility] Heart rate 2024-08-02 17:21:00 88 /min [facility] Body temperature 2024-08-02 17:21:00 36.78 Irene [facility] Respiratory rate 2024-08-02 17:21:00 16 /min [facility] Oxygen saturation in Arterial blood by Pulse oximetry 2024-08-02 17:21:00 100 /min [facility] Body height 2024-08-02 15:11:00 154.9 cm [facility] Body weight 2024-08-02 15:11:00 52.164 kg [facility] BMI 2024-08-02 15:11:00 21.73 kg/m2 [facility] Systolic blood pressure 2024-05-19 20:32:57 137 mm[Hg] [facility] Diastolic blood pressure 2024-05-19 20:32:57 88 mm[Hg] [facility] Heart rate 2024-05-19 20:32:57 118 /min [facility] Respiratory rate 2024-05-19 20:32:57 18 /min [facility] Oxygen saturation in Arterial blood by Pulse oximetry 2024-05-19 20:32:57 100 /min [facility] Body temperature 2024-05-19 18:41:00 36.39 Irene [facility] Body height 2024-05-19 18:41:00 154.9 cm [facility] Body weight 2024-05-19 18:41:00 52.164 kg [facility] BMI 2024-05-19 18:41:00 21.73 kg/m2 [facility] Systolic blood pressure 2024-04-19 15:51:38 123 mm[Hg] [facility] Diastolic blood pressure 2024-04-19 15:51:38 90 mm[Hg] [facility] Heart rate 2024-04-19 15:51:38 87 /min [facility] Body temperature 2024-04-19 15:51:38 36.78 Irene [facility] Respiratory rate 2024-04-19 15:51:38 14 /min [facility] Oxygen saturation in Arterial blood by Pulse oximetry 2024-04-19 15:51:38 100 /min [facility] Body height 2024-04-19 13:54:00 154.9 cm [facility] Body weight 2024-04-19 13:54:00 54.432 kg [facility] BMI 2024-04-19 13:54:00 22.67 kg/m2 [facility] Systolic blood pressure 2024-04-12 20:00:00 119 mm[Hg] [facility] Diastolic blood pressure 2024-04-12 20:00:00 80 mm[Hg] [facility] Heart rate 2024-04-12 20:00:00 88 /min [facility] Respiratory rate 2024-04-12 20:00:00 18 /min [facility] Oxygen saturation in Arterial blood by Pulse oximetry 2024-04-12 20:00:00 99 /min [facility] Body temperature 2024-04-12 19:00:00 36.67 Irene [facility] Body height 2024-04-12 17:57:10 154.9 cm [facility] Body weight 2024-04-12 17:57:10 54.432 kg [facility] BMI 2024-04-12 17:57:10 22.67 kg/m2 [facility] Systolic blood pressure 2024-04-12 16:25:00 124 mm[Hg] [facility] Diastolic blood pressure 2024-04-12 16:25:00 95 mm[Hg] [facility] Heart rate 2024-04-12 16:25:00 106 /min [facility] Body temperature 2024-04-12 16:25:00 37.17 Irene [facility] Respiratory rate 2024-04-12 16:25:00 18 /min [facility] Oxygen saturation in Arterial blood by Pulse oximetry 2024-04-12 16:25:00 100 /min [facility] Body height 2024-04-12 15:25:00 154.9 cm [facility] Body weight 2024-04-12 15:25:00 54.432 kg [facility] BMI 2024-04-12 15:25:00 22.67 kg/m2 [facility] Systolic blood pressure 2024-03-13 13:25:00 129 mm[Hg] [facility] Diastolic blood pressure 2024-03-13 13:25:00 87 mm[Hg] [facility] Heart rate 2024-03-13 13:25:00 116 /min [facility] Body temperature 2024-03-13 13:25:00 35.61 Irene [facility] Respiratory rate 2024-03-13 13:25:00 20 /min [facility] Oxygen saturation in Arterial blood by Pulse oximetry 2024-03-13 13:25:00 94 /min [facility] Body height 2024-03-10 14:43:00 154.9 cm [facility] Body weight 2024-03-10 14:43:00 44.453 kg [facility] BMI 2024-03-10 14:43:00 18.52 kg/m2 [facility] Systolic blood pressure 2024-03-05 16:10:00 142 mm[Hg] [facility] Diastolic blood pressure 2024-03-05 16:10:00 87 mm[Hg] [facility] Heart rate 2024-03-05 16:10:00 94 /min [facility] Body temperature 2024-03-05 16:10:00 37 Irene [facility] Respiratory rate 2024-03-05 16:10:00 16 /min [facility] Oxygen saturation in Arterial blood by Pulse oximetry 2024-03-05 16:10:00 100 /min [facility] Body height 2024-03-04 11:42:00 154.9 cm [facility] Body weight 2024-03-04 11:42:00 45.36 kg [facility] BMI 2024-03-04 11:42:00 18.89 kg/m2 [facility] Systolic blood pressure 2024-02-27 17:17:00 138 mm[Hg] [facility] Diastolic blood pressure 2024-02-27 17:17:00 91 mm[Hg] [facility] Heart rate 2024-02-27 17:17:00 97 /min [facility] Body temperature 2024-02-27 17:17:00 36.67 Irene [facility] Respiratory rate 2024-02-27 17:17:00 16 /min [facility] Oxygen saturation in Arterial blood by Pulse oximetry 2024-02-27 17:17:00 99 /min [facility] Body height 2024-02-27 13:16:00 154.9 cm [facility] Body weight 2024-02-27 13:16:00 45.36 kg [facility] BMI 2024-02-27 13:16:00 18.89 kg/m2 [facility] Systolic blood pressure 2024-02-27 15:50:00 122 mm[Hg] [facility] Diastolic blood pressure 2024-02-27 15:50:00 81 mm[Hg] [facility] Heart rate 2024-02-27 15:50:00 102 /min [facility] Respiratory rate 2024-02-27 15:50:00 13 /min [facility] Oxygen saturation in Arterial blood by Pulse oximetry 2024-02-27 15:50:00 98 /min [facility] Body temperature 2024-02-27 15:20:00 36 Irene [facility] Body height 2024-02-27 13:16:00 154.9 cm [facility] Body weight 2024-02-27 13:16:00 45.36 kg [facility] BMI 2024-02-27 13:16:00 18.89 kg/m2 [facility] Systolic blood pressure 2023-05-19 17:24:00 129 mm[Hg] [facility] Diastolic blood pressure 2023-05-19 17:24:00 83 mm[Hg] [facility] Heart rate 2023-05-19 17:24:00 77 /min [facility] Respiratory rate 2023-05-19 17:24:00 15 /min [facility] Oxygen saturation in Arterial blood by Pulse oximetry 2023-05-19 17:24:00 100 /min [facility] Body temperature 2023-05-19 14:50:00 37.28 Irene [facility] Body height 2023-05-19 14:50:00 154.9 cm [facility] Body weight 2023-05-19 14:50:00 58.968 kg [facility] BMI 2023-05-19 14:50:00 24.56 kg/m2 [facility] Systolic blood pressure 2023-01-15 16:56:00 132 mm[Hg] [facility] Diastolic blood pressure 2023-01-15 16:56:00 91 mm[Hg] [facility] Heart rate 2023-01-15 16:56:00 67 /min [facility] Body temperature 2023-01-15 16:56:00 36.78 Irene [facility] Respiratory rate 2023-01-15 16:56:00 20 /min [facility] Oxygen saturation in Arterial blood by Pulse oximetry 2023-01-15 16:56:00 100 /min [facility] Body height 2023-01-12 09:05:00 154.9 cm [facility] Body weight 2023-01-12 09:05:00 58.968 kg [facility] BMI 2023-01-12 09:05:00 24.56 kg/m2 [facility] Systolic blood pressure 2022-11-21 21:40:00 122 mm[Hg] [facility] Diastolic blood pressure 2022-11-21 21:40:00 90 mm[Hg] [facility] Heart rate 2022-11-21 21:40:00 92 /min [facility] Respiratory rate 2022-11-21 21:40:00 16 /min [facility] Oxygen saturation in Arterial blood by Pulse oximetry 2022-11-21 21:40:00 99 /min [facility] Body temperature 2022-11-21 18:07:00 37.28 Irene [facility] Body weight 2022-11-21 18:07:00 68.04 kg [facility] BMI 2022-11-21 18:07:00 28.34 kg/m2 [facility] Systolic blood pressure 2022-09-05 17:22:00 139 mm[Hg] [facility] Diastolic blood pressure 2022-09-05 17:22:00 91 mm[Hg] [facility] Heart rate 2022-09-05 17:22:00 120 /min [facility] Respiratory rate 2022-09-05 17:22:00 18 /min [facility] Oxygen saturation in Arterial blood by Pulse oximetry 2022-09-05 17:22:00 99 /min [facility] Body temperature 2022-09-05 13:43:00 37.11 Irene [facility] Body weight 2022-09-05 13:43:00 68.04 kg [facility] BMI 2022-09-05 13:43:00 28.34 kg/m2 [facility] Systolic blood pressure 2022-08-01 00:49:00 138 mm[Hg] [facility] Diastolic blood pressure 2022-08-01 00:49:00 104 mm[Hg] [facility] Heart rate 2022-08-01 00:49:00 108 /min [facility] Respiratory rate 2022-08-01 00:49:00 18 /min [facility] Oxygen saturation in Arterial blood by Pulse oximetry 2022-08-01 00:49:00 99 /min [facility] Body temperature 2022-07-31 22:52:00 37.11 [facility] Body height 2022-07-31 22:52:00 154.9 cm [facility] Body weight 2022-07-31 22:52:00 68.04 kg [facility] BMI 2022-07-31 22:52:00 28.34 kg/m2 [facility] Systolic blood pressure 2022-07-15 15:32:00 130 mm[Hg] [facility] Diastolic blood pressure 2022-07-15 15:32:00 90 mm[Hg] [facility] Heart rate 2022-07-15 15:31:00 81 /min [facility] Body temperature 2022-07-15 15:31:00 36.94 Irene [facility] Respiratory rate 2022-07-15 15:31:00 16 /min [facility] Body weight 2022-07-15 15:31:00 68.493 kg [facility] BMI 2022-07-15 15:31:00 28.53 kg/m2 [facility] Oxygen saturation in Arterial blood by Pulse oximetry 2022-07-15 15:31:00 99 /min [facility] Systolic blood pressure 2022-06-23 15:26:00 111 mm[Hg] [facility] Diastolic blood pressure 2022-06-23 15:26:00 75 mm[Hg] [facility] Heart rate 2022-06-23 15:26:00 108 /min [facility] Body temperature 2022-06-23 15:26:00 36.83 Irene [facility] Respiratory rate 2022-06-23 15:26:00 18 /min [facility] Body height 2022-06-23 15:26:00 154.9 cm [facility] 2022-06-23 15:26:00 71.385 kg [facility] BMI 2022-06-23 15:26:00 29.74 kg/m2 [facility] Oxygen saturation in Arterial blood by Pulse oximetry 2022-06-23 15:26:00 99 /min [facility] Systolic blood pressure 2022-05-05 22:05:00 126 mm[Hg] [facility] Diastolic blood pressure 2022-05-05 22:05:00 75 mm[Hg] [facility] Heart rate 2022-05-05 22:05:00 99 /min [facility] Respiratory rate 2022-05-05 22:05:00 16 /min [facility] Oxygen saturation in Arterial blood by Pulse oximetry 2022-05-05 22:05:00 99 /min [facility] Body temperature 2022-05-05 18:24:00 37.11 Irene [facility] Body height 2022-05-05 18:24:00 154.9 cm [facility] Body weight 2022-05-05 18:24:00 54.432 kg [facility] BMI 2022-05-05 18:24:00 22.67 kg/m2 [facility] Systolic blood pressure 2022-04-26 14:28:00 135 mm[Hg] [facility] Diastolic blood pressure 2022-04-26 14:28:00 95 mm[Hg] [facility] Heart rate 2022-04-26 14:28:00 93 /min [facility] Body temperature 2022-04-26 14:28:00 36.89 Irene [facility] Respiratory rate 2022-04-26 14:28:00 18 /min [facility] Body height 2022-04-26 14:28:00 154.9 cm [facility] Body weight 2022-04-26 14:28:00 54.432 kg [facility] BMI 2022-04-26 14:28:00 22.67 kg/m2 [facility] Oxygen saturation in Arterial blood by Pulse oximetry 2022-04-26 14:28:00 100 /min [facility] Systolic blood pressure 2022-04-26 00:21:00 151 mm[Hg] [facility] Diastolic blood pressure 2022-04-26 00:21:00 98 mm[Hg] [facility] Heart rate 2022-04-26 00:21:00 98 /min [facility] Body temperature 2022-04-26 00:21:00 36.72 Irene [facility] Respiratory rate 2022-04-26 00:21:00 18 /min [facility] Body height 2022-04-26 00:21:00 154.9 cm [facility] Body weight 2022-04-26 00:21:00 54.432 kg [facility] BMI 2022-04-26 00:21:00 22.67 kg/m2 [facility] Oxygen saturation in Arterial blood by Pulse oximetry 2022-04-26 00:21:00 100 /min [facility] Systolic blood pressure 2022-04-09 14:39:00 122 mm[Hg] [facility] Diastolic blood pressure 2022-04-09 14:39:00 84 mm[Hg] [facility] Heart rate 2022-04-09 14:39:00 96 [facility] Body height 2022-04-09 14:39:00 154.9 cm [facility] Body weight 2022-04-09 14:39:00 60.328 kg [facility] BMI 2022-04-09 14:39:00 25.13 kg/m2 [facility] Oxygen saturation in Arterial blood by Pulse oximetry 2022-04-09 14:39:00 98 /min [facility] Systolic blood pressure 2022-04-07 22:43:36 131 mm[Hg] [facility] Diastolic blood pressure 2022-04-07 22:43:36 83 mm[Hg] [facility] Heart rate 2022-04-07 22:43:36 113 /min [facility] Respiratory rate 2022-04-07 22:43:36 18 /min [facility] Oxygen saturation in Arterial blood by Pulse oximetry 2022-04-07 22:43:36 97 /min [facility] Body temperature 2022-04-07 19:41:00 37.17 Irene [facility] Body height 2022-04-07 19:41:00 154.9 cm [facility] Body weight 2022-04-07 19:41:00 60.328 kg [facility] BMI 2022-04-07 19:41:00 25.13 kg/m2 [facility] Systolic blood pressure 2022-03-24 19:00:00 125 mm[Hg] [facility] Diastolic blood pressure 2022-03-24 19:00:00 86 mm[Hg] [facility] Heart rate 2022-03-24 19:00:00 93 /min [facility] Respiratory rate 2022-03-24 19:00:00 17 /min [facility] Oxygen saturation in Arterial blood by Pulse oximetry 2022-03-24 19:00:00 97 /min [facility] Body temperature 2022-03-24 13:33:00 36.78 Irene [facility] Systolic blood pressure 2022-03-15 19:23:00 128 mm[Hg] [facility] Diastolic blood pressure 2022-03-15 19:23:00 89 mm[Hg] [facility] Heart rate 2022-03-15 19:23:00 104 /min [facility] Body weight 2022-03-15 19:23:00 60.328 kg [facility] BMI 2022-03-15 19:23:00 25.13 kg/m2 [facility] Oxygen saturation in Arterial blood by Pulse oximetry 2022-03-15 19:23:00 98 /min [facility] Systolic blood pressure 2022-03-15 15:02:00 115 mm[Hg] [facility] Diastolic blood pressure 2022-03-15 15:02:00 70 mm[Hg] [facility] Heart rate 2022-03-15 15:02:00 85 /min [facility] Respiratory rate 2022-03-15 15:02:00 20 /min [facility] Oxygen saturation in Arterial blood by Pulse oximetry 2022-03-15 15:02:00 99 /min [facility] Body temperature 2022-03-15 13:38:00 36.94 Irene [facility] Body height 2022-03-15 13:38:00 154.9 cm [facility] Body weight 2022-03-15 13:38:00 54.432 kg [facility] BMI 2022-03-15 13:38:00 22.67 kg/m2 [facility] Systolic blood pressure 2022-03-11 16:30:00 124 mm[Hg] [facility] Diastolic blood pressure 2022-03-11 16:30:00 88 mm[Hg] [facility] Heart rate 2022-03-11 16:30:00 93 /min [facility] Body temperature 2022-03-11 16:30:00 36.67 Irene [facility] Respiratory rate 2022-03-11 16:30:00 14 /min [facility] Oxygen saturation in Arterial blood by Pulse oximetry 2022-03-11 16:30:00 100 /min [facility] Body height 2022-03-11 14:19:00 154.9 cm [facility] Body weight 2022-03-11 14:19:00 58.968 kg [facility] BMI 2022-03-11 14:19:00 24.56 kg/m2 [facility] Systolic blood pressure 2022-02-27 14:14:00 140 mm[Hg] [facility] Diastolic blood pressure 2022-02-27 14:14:00 90 mm[Hg] [facility] Heart rate 2022-02-27 14:14:00 103 /min [facility] Body height 2022-02-27 14:14:00 154.9 cm [facility] Body weight 2022-02-27 14:14:00 59.194 kg [facility] BMI 2022-02-27 14:14:00 24.66 kg/m2 [facility] Oxygen saturation in Arterial blood by Pulse oximetry 2022-02-27 14:14:00 100 /min [facility] Systolic blood pressure 2022-02-27 13:19:00 131 mm[Hg] [facility] Diastolic blood pressure 2022-02-27 13:19:00 86 mm[Hg] [facility] Heart rate 2022-02-27 13:19:00 102 /min [facility] Body temperature 2022-02-27 13:19:00 36.33 Irene [facility] Body height 2022-02-27 13:19:00 154.9 cm [facility] Body weight 2022-02-27 13:19:00 58.968 kg [facility] BMI 2022-02-27 13:19:00 24.56 kg/m2 [facility] Oxygen saturation in Arterial blood by Pulse oximetry 2022-02-27 13:19:00 99 /min [facility] Systolic blood pressure 2022-02-21 08:06:00 135 mm[Hg] [facility] Diastolic blood pressure 2022-02-21 08:06:00 97 mm[Hg] [facility] Heart rate 2022-02-21 08:06:00 98 /min [facility] Respiratory rate 2022-02-21 08:06:00 16 /min [facility] Oxygen saturation in Arterial blood by Pulse oximetry 2022-02-21 08:06:00 97 /min [facility] Body temperature 2022-02-21 06:16:00 36.94 Irene [facility] Body height 2022-02-21 06:16:00 154.9 cm [facility] Body weight 2022-02-21 06:16:00 60.963 kg [facility] BMI 2022-02-21 06:16:00 25.39 kg/m2 [facility] Systolic blood pressure 2022 20:08:00 136 mm[Hg] [facility] Diastolic blood pressure 2022 20:08:00 96 mm[Hg] [facility] Heart rate 2022 20:08:00 100 /min [facility] Respiratory rate 2022 20:08:00 20 /min [facility] Oxygen saturation in Arterial blood by Pulse oximetry 2022 20:08:00 98 /min [facility] Body temperature 2022 16:56:00 37.06 Irene [facility] Body weight 2022 16:56:00 54.432 kg [facility] BMI 2022 16:56:00 22.67 kg/m2 [facility] Systolic blood pressure 2022-02-05 14:31:00 128 mm[Hg] [facility] Diastolic blood pressure 2022-02-05 14:31:00 84 mm[Hg] [facility] Heart rate 2022-02-05 14:31:00 86 /min [facility] Body temperature 2022-02-05 14:31:00 37.89 Irene [facility] Respiratory rate 2022-02-05 14:31:00 18 /min [facility] Body height 2022-02-05 14:31:00 154.9 cm [facility] Body weight 2022-02-05 14:31:00 54.432 kg [facility] BMI 2022-02-05 14:31:00 22.67 kg/m2 [facility] Oxygen saturation in Arterial blood by Pulse oximetry 2022-02-05 14:31:00 98 /min [facility] Systolic blood pressure 2022-01-18 14:50:00 144 mm[Hg] [facility] Diastolic blood pressure 2022-01-18 14:50:00 92 mm[Hg] [facility] Heart rate 2022-01-18 14:50:00 94 /min [facility] Respiratory rate 2022-01-18 14:50:00 20 /min [facility] Oxygen saturation in Arterial blood by Pulse oximetry 2022-01-18 14:50:00 99 /min [facility] Body weight 2022-01-18 10:18:00 54.432 kg [facility] BMI 2022-01-18 10:18:00 22.67 kg/m2 [facility] Body temperature 2022-01-18 10:15:00 36.72 Irene [facility] Systolic blood pressure 2022-01-15 15:48:26 125 mm[Hg] [facility] Diastolic blood pressure 2022-01-15 15:48:26 85 mm[Hg] [facility] Heart rate 2022-01-15 15:48:26 95 /min [facility] Respiratory rate 2022-01-15 15:48:26 18 /min [facility] Oxygen saturation in Arterial blood by Pulse oximetry 2022-01-15 15:48:26 98 /min [facility] Body temperature 2022-01-15 13:32:00 37.11 Irene [facility] Body height 2022-01-15 13:32:00 154.9 cm [facility] Body weight 2022-01-15 13:32:00 54.432 kg [facility] BMI 2022-01-15 13:32:00 22.67 kg/m2 [facility] Systolic blood pressure 2022-01-09 00:37:11 127 mm[Hg] [facility] Diastolic blood pressure 2022-01-09 00:37:11 90 mm[Hg] [facility] Heart rate 2022-01-09 00:37:11 94 /min [facility] Body temperature 2022-01-09 00:37:11 37.11 Irene [facility] Respiratory rate 2022-01-09 00:37:11 16 /min [facility] Oxygen saturation in Arterial blood by Pulse oximetry 2022-01-09 00:37:11 97 /min [facility] Body height 2022-01-08 23:03:00 154.9 cm [facility] Body weight 2022-01-08 23:03:00 58.06 kg [facility] BMI 2022-01-08 23:03:00 24.19 kg/m2 [facility] Systolic blood pressure 2021-12-12 18:00:00 126 mm[Hg] [facility] Diastolic blood pressure 2021-12-12 18:00:00 87 mm[Hg] [facility] Heart rate 2021-12-12 18:00:00 86 /min [facility] Body temperature 2021-12-12 18:00:00 36.89 Irene [facility] Respiratory rate 2021-12-12 18:00:00 18 /min [facility] Body height 2021-12-12 18:00:00 154.9 cm [facility] Body weight 2021-12-12 18:00:00 57.153 kg [facility] BMI 2021-12-12 18:00:00 23.81 kg/m2 [facility] Systolic blood pressure 2023-01-14 16:32:00 138 mm[Hg] [facility] Diastolic blood pressure 2023-01-14 16:32:00 84 mm[Hg] [facility] Heart rate 2023-01-14 16:32:00 67 /min [facility] Body temperature 2023-01-14 16:32:00 36.5 Irene [facility] Respiratory rate 2023-01-14 16:32:00 16 /min [facility] Oxygen saturation in Arterial blood by Pulse oximetry 2023-01-14 16:32:00 99 /min [place] [facility] Body height 2023-01-12 09:05:00 154.9 cm [facility] Body weight 2023-01-12 09:05:00 58.968 kg [facility] BMI 2023-01-12 09:05:00 24.56 kg/m2 [facility] Procedures Procedure Date / Time Performed Performing Clinician Source CT ABDOMEN PELVIS WO CONTRAST 2024-08-16 14:27:56 Leonela Veloz [facility] POCT TEST 2024-08-16 13:22:00 Leonela Veloz [facility] LIPASE 2024-08-16 13:17:00 Leonela Veloz [facility] COMP. METABOLIC PANEL ([id number]) 2024-08-16 13:17:00 Leonela Veloz [facility] CBC WITH DIFF 2024-08-16 13:17:00 Leonela Veloz [facility] URINALYSIS 2024-08-16 13:17:00 Leonela Veloz [facility] POCT TEST 2024-05-19 20:10:00 Anamaria Gonzales [facility] LIPASE 2024-05-19 19:53:00 Anamaria Gonzales [facility] COMP. METABOLIC PANEL ([id number]) 2024-05-19 19:53:00 Anamaria Gonzales [facility] CBC WITH DIFF 2024-05-19 19:53:00 Anamaria Gonzales [facility] URINALYSIS 2024-05-19 19:53:00 Anamaria Gonzales [facility] CT ABDOMEN PELVIS WO CONTRAST 2024-04-19 14:51:33 Rosendo Levy [facility] POCT TEST 2024-04-19 14:21:00 Rosendo Levy [facility] LIPASE 2024-04-19 14:18:00 Rosendo Levy [facility] COMP. METABOLIC PANEL ([id number]) 2024-04-19 14:18:00 Rosendo Levy [facility] CBC WITH DIFF 2024-04-19 14:18:00 Rosendo Levy [facility] URINALYSIS 2024-04-19 14:18:00 Rosendo Levy [facility] XR ANKLE <3 VW LEFT 2024-04-12 18:36:00 Niranjan Neeta [facility] XR FOOT <3 VW LEFT 2024-04-12 18:36:[address] [facility] XR TIBIA FIBULA 2 VW LEFT 2024-04-12 18:36:[address] [facility] CT TRAUMA HEAD WO CONTRAST 2024-04-12 18:27:[address] [facility] CT TRAUMA CERVICAL SPINE WO CONTRAST 2024-04-12 18:27:[address] [facility] CT TRAUMA THORACIC SPINE WO CONTRAST 2024-04-12 18:27:[address] [facility] CT TRAUMA LUMBAR SPINE WO CONTRAST 04-12 18:27:49 Niranjan Neeta [facility] XR CHEST 1 VW 2024-04-12 15:50:27 Maggie Hamilton [facility] COMP. METABOLIC PANEL ([id number]) 2024-04-12 15:43:00 Maggie Hamilton [facility] CBC WITH DIFF 2024-04-12 15:43:00 Maggie Hamilton [facility] HB ABO GROUPING 2024-04-12 15:43:00 Magige Hamilton [facility] ER FAST ULTRASOUND 2024-04-12 15:36:51 Maggie Hamilton [facility] MAGNESIUM 2024-03-13 10:20:00 Ellis Burgess [facility] BASIC METABOLIC PANEL (NA, K , CL, CO2, GLUCOSE, BUN, CREATININE, CA) 2024-03-13 10:20:00 Ellis Burgess [facility] CBC WITH DIFF 2024-03-13 10:20:00 Ellis Burgess [facility] FECAL PATHOGENS BY PCR 2024-03-12 17:51:00 [facility] CLOSTRIDIUM DIFFICILE TOXIN 2024-03-12 17:50:00 [facility] LAB ONLY C. DIFFICILE TOXIN B GENE (TCDB) BY PCR 2024-03-12 17:50:00 [facility] SUPERIOR MESENTERIC ARTERY D UPLEX - BY VASCULAR LAB 2024-03-12 14:06:02 [facility] MAGNESIUM 2024-03-12 11:14:00 [facility] BASIC METABOLIC PANEL (NA, K , CL, CO2, GLUCOSE, BUN, CREATININE, CA) 2024-03-12 11:14:00 Mars [facility] CBC WITHOUT DIFF 2024-03-12 11:14:00 [facility] MAGNESIUM 2024-03-11 10:47:00 Kitty [facility] BASIC METABOLIC PANEL (NA, K , CL, CO2, GLUCOSE, BUN, CREATININE, CA) 2024-03-11 10:47:00 Kitty [facility] CBC WITH DIFF 2024-03-11 10:47:00 Kitty [facility] CT ABDOMEN PELVIS WO CONTRAST 2024-03-10 19:46:10 Venkat [facility] LIPASE 2024-03-10 15:42:00 Venkat [facility] TEST, SERUM 2024-03-10 15:42:00 Alfredo Parra [facility] COMP. METABOLIC PANEL ([id number]) 2024-03-10 15:42:00 Venkat [facility] URINE DRUG (IMMUNOASSAY) - COMPREHENSIVE DRUG SCREEN 2024-03-10 15:42:00 Kitty [facility] CBC WITH DIFF 2024-03-10 15:42:00 Venkat [facility] URINALYSIS 2024-03-10 15:42:00 Venkat [facility] EXTRA TUBE DK. GREEN 2024-03-10 15:42:00 Alfredo Parra [facility] CT ABDOMEN PELVIS WO CONTRAST 2024-03-04 13:43:16 Alexander Richard [facility] POCT TEST 2024-03-04 13:14:00 Alexander Richard [facility] LIPASE 2024-03-04 13:13:00 Alexander Richard [facility] COMP. METABOLIC PANEL ([id number]) 2024-03-04 13:13:00 Alexander Richard [facility] CBC WITH DIFF 2024-03-04 13:13:00 Alexander Richard [facility] URINALYSIS 2024-03-04 13:13:00 Alexander Richard [facility] ENDOSCOPY PROCEDURE DOCUMENTATION 2023-05 018 14:46:53 Doctor Unassigned, [place] [facility] FLEXIBLE SIGMOIDOSCOPY (ENDO) 2024-02-27 15:42:37 Hany Lee [facility] FLEXIBLE SIGMOIDOSCOPY (ENDO) 2024-02-27 15:42:37 Hany Lee [facility] EGD (ENDO) 2024-02-27 15:39:44 Hany Lee [facility] EGD (ENDO) 2024-02-27 15:39:44 Hany Lee [facility] ESOPHAGOGASTRODUODENOSCOPY 2024-02-27 14:11:00 Jas Buenrostro [facility] FLEXIBLE SIGMOIDOSCOPY 2024-02-27 14:11:00 Jas Buenrostro [facility] MAGNESIUM 2024-02-27 09:37:00 Jose Carlos Urbina [facility] HEPATIC FUNCTION PANEL (8007 6) (ALB,T.PRO,BILI T,BU/BC,ALT,AST,ALK PHOS) 2024-02-27 09:37:00 Jose Carlos Urbina [facility] BASIC METABOLIC PANEL (NA, K , CL, CO2, GLUCOSE, BUN, CREATININE, CA) 2024-02-27 09:37:00 Jose Carlos Urbina [facility] CBC WITH DIFF 2024-02-27 09:37:00 Carlitos, [facility] 2024-02-27 09:37:00 Jose Carlos Urbina [facility] HEPATIC FUNCTION PANEL (8007 6) (ALB,T.PRO,BILI T,BU/BC,ALT,AST,ALK PHOS) 2024-02-27 09:37:00 Jose Carlos Urbina [facility] BASIC METABOLIC PANEL (NA, K , CL, CO2, GLUCOSE, BUN, CREATININE, CA) 2024-02-27 09:37:00 Jose Carlos Urbina [facility] CBC WITH DIFF 2024-02-27 09:37:00 Jose Carlos Urbina Artur [facility] CALPROTECTIN, FECAL 2024-02-26 22:49:00 Jose Carlos Urbina [facility] CALPROTECTIN, FECAL 2024-02-26 22:49:00 Jose Carlos Urbina [facility] XR KUB 2024-02-26 20:00:00 Jose Carlos Urbina [facility] XR KUB 2024-02-26 20:00:00 Jose Carlos Urbina [facility] MAGNESIUM 2024-02-26 16:17:00 Chitra [facility] HEPATIC FUNCTION PANEL (8007 6) (ALB,T.PRO,BILI T,BU/BC,ALT,AST,ALK PHOS) 2024-02-26 16:17:00 [facility]EL (NA, K , CL, CO2, GLUCOSE, BUN, CREATININE, CA) 2024-02-26 16:17:00 [facility] 2024-02-26 16:17:00 [facility] 2024-02-26 16:17:00 Chitra [facility] HEPATIC FUNCTION PANEL (8007 6) (ALB,T.PRO,BILI T,BU/BC,ALT,AST,ALK PHOS) 2024-02-26 16:17:00 [facility]IC PANEL (NA, K , CL, CO2, GLUCOSE, BUN, CREATININE, CA) 2024-02-26 16:17:00 [facility] / INR 2024-02-26 16:17:00 [facility] ABDOMEN W WO CONTRAST MRCP 2024-02-25 17:15:21 Chitra [facility] MR ABDOMEN W WO CONTRAST MRCP 2024-02-25 17:15:21 Chitra [facility] CREATINE KINASE 2024-02-25 10:52:00 [facility] FUNCTION PANEL (8007 6) (ALB,T.PRO,BILI T,BU/BC,ALT,AST,ALK PHOS) 2024-02-25 10:52:00 Jose Carlos Urbina [facility] BASIC METABOLIC PANEL (NA, K , CL, CO2, GLUCOSE, BUN, CREATININE, CA) 2024-02-25 10:52:00 Jose Carlos Urbina [facility] CREATINE KINASE 2024-02-25 10:52:00 [facility] FUNCTION PANEL (8007 6) (ALB,T.PRO,BILI T,BU/BC,ALT,AST,ALK PHOS) 2024-02-25 10:52:00 Jose Carlos Urbina [facility] BASIC METABOLIC PANEL (NA, K , CL, CO2, GLUCOSE, BUN, CREATININE, CA) 2024-02-25 10:52:00 Jose Carlos Urbina [facility] MAGNESIUM 2024-02-24 09:54:00 [facility] FUNCTION PANEL (8007 6) (ALB,T.PRO,BILI T,BU/BC,ALT,AST,ALK PHOS) 2024-02-24 09:54:00 Jose Carlos Urbina [facility] BASIC METABOLIC PANEL (NA, K , CL, CO2, GLUCOSE, BUN, CREATININE, CA) 2024-02-24 09:54:00 Jose Carlos Urbina [facility] CBC WITH DIFF 2024-02-24 09:54:00 [facility] 2024-02-24 09:54:00 Chitra [facility] HEPATIC FUNCTION PANEL (8007 6) (ALB,T.PRO,BILI T,BU/BC,ALT,AST,ALK PHOS) 2024-02-24 09:54:00 Jose Carlos Urbina [facility] BASIC METABOLIC PANEL (NA, K , CL, CO2, GLUCOSE, BUN, CREATININE, CA) 2024-02-24 09:54:00 Jose Carlos Urbina [facility] CBC WITH DIFF 2024-02-24 09:54:00 [facility] POCT GLUCOSE (AUTOMATED) 2024-02-24 01:34:00 Hany Lee [facility] POCT GLUCOSE (AUTOMATED) 2024-02-24 01:34:00 Hany Lee [facility] HEPATIC FUNCTION PANEL (8007 6) (ALB,T.PRO,BILI T,BU/BC,ALT,AST,ALK PHOS) 2024-02-23 17:51:00 Chitra [facility] CBC WITH DIFF 2024-02-23 17:51:00 Chitra [facility] HAV ANTIBODY (IGG AND IGM) 2024-02-23 17:51:00 Chitra [facility] ENDOMYSIAL AB, IGA BY IFA 2024-02-23 17:51:00 Chitra [facility] VITAMIN D, 25-OH 2024-02-23 17:51:00 Chitra [facility] HEPATIC FUNCTION PANEL (8007 6) (ALB,T.PRO,BILI T,BU/BC,ALT,AST,ALK PHOS) 2024-02-23 17:51:00 [facility] WITH DIFF 2024-02-23 17:51:00 Chitra [facility] HAV ANTIBODY (IGG AND IGM) 2024-02-23 17:51:00 Chitra [facility] ENDOMYSIAL AB, IGA BY IFA 2024-02-23 17:51:00 Chitra [facility] VITAMIN D, 25-OH 2024-02-23 17:51:00 [facility]/B RSV COVID NAAT 2024-02-22 20:12:00 [facility] COVID INTERPRETATION 2024-02-22 20:12:00 [facility] INFLU[facility] A/B RSV COVID NAAT 2024-02-22 20:12:00 [facility] COVID INTERPRETATION 2024-02-22 20:12:00 [facility] CHEST 2 VW 2024-02-22 17:16:00 [place], Adriana [facility] XR CHEST 2 VW 2024-02-22 17:16:00 [place], Adriana [facility] US ABDOMEN LIMITED 2024-02-22 16:59:52 [place], Adriana [facility] US ABDOMEN LIMITED 2024-02-22 16:59:52 [place], Adriana [facility] LIPASE 2024-02-22 15:19:00 Stephanie Lou [facility] TEST, SERUM 2024-02-22 15:19:00 Stephanie Lou [facility] C-REACTIVE PROTEIN 2024-02-22 15:19:00 Chitra [facility] TROPONIN I 2024-02-22 15:19:00 Stephanie Lou [facility] HEPATIC FUNCTION PANEL (8007 6) (ALB,T.PRO,BILI T,BU/BC,ALT,AST,ALK PHOS) 2024-02-22 15:19:00 [facility] COMP. METABOLIC PANEL ([id number]) 2024-02-22 15:19:00 Stephanie Lou [facility] URINE DRUG (IMMUNOASSAY) - COMPREHENSIVE DRUG SCREEN 2024-02-22 15:19:00 Chitra [facility] SEDIMENTATION RATE 2024-02-22 15:19:00 Chitra [facility] CBC WITH DIFF 2024-02-22 15:19:00 Stephanie Luo [facility] URINALYSIS 2024-02-22 15:[facility] 2024-02-22 15:19:00 [facility] B SURFACE ANTIGEN 2024-02-22 15:19:00 [facility] HCV ANTIBODY 2024-02-22 15:19:00 [facility] HBC ANTIBODY (IGM & IGG) 2024-02-22 15:19:00 Chitra [facility] HIV 1/2 AG-AB WITH REFLEX 2024-02-22 15:19:00 Chitra [facility] DEAMIDATED GLIADIN IGG 2024-02-22 15:19:00 Chitra [facility] LIPASE 2024-02-22 15:19:00 Stephanie Lou [facility] TEST, SERUM 2024-02-22 15:19:00 Stephanie Lou [facility] C-REACTIVE PROTEIN 2024-02-22 15:19:00 Chitra [facility] TROPONIN I 2024-02-22 15:19:00 Stephanie Lou [facility] HEPATIC FUNCTION PANEL (8007 6) (ALB,T.PRO,BILI T,BU/BC,ALT,AST,ALK PHOS) 2024-02-22 15:19:00 Chitra [facility] COMP. METABOLIC PANEL ([id number]) 2024-02-22 15:19:00 Stephanie Lou [facility] URINE DRUG (IMMUNOASSAY) - COMPREHENSIVE DRUG SCREEN 2024-02-22 15:19:00 Chitra [facility] SEDIMENTATION RATE 2024-02-22 15:19:00 Chitra [facility] CBC WITH DIFF 2024-02-22 15:19:00 Stephanie Lou [facility] URINALYSIS 2024-02-22 15:19:00 Stephanie Lou [facility] HEPATITIS B SURFACE ANTIBODY 2024-02-22 15:19:00 Chitra [facility] HEPATITIS B SURFACE ANTIGEN 2024-02-22 15:19:00 Chitra [facility] HCV ANTIBODY 2024-02-22 15:19:00 Chitra [facility] HBC ANTIBODY (IGM & IGG) 2024-02-22 15:19:00 Chitra [facility] HIV 1/2 AG-AB WITH REFLEX 2024-02-22 15:19:00 Chitra [facility] DEAMIDATED GLIADIN IGG 2024-02-22 15:19:00 Chitra [facility] COMP. METABOLIC PANEL ([id number]) 2023-05-19 17:22:00 Verito [facility] CT ABDOMEN PELVIS W CONTRAST 2023-05-19 15:59:54 Verito [facility] LIPASE 2023-05-19 15:43:00 Verito [facility] CBC WITH DIFF 2023-05-19 15:43:00 Verito [facility] URINALYSIS 2023-05-19 15:32:00 Verito [facility] POCT TEST 2023-05-19 15:31:00 Verito [facility] CONSENT/REFUSAL FOR DIAGNOSI S AND TREATMENT 2023-05-19 14:37:15 Doctor Unassigned, [place] [facility] PHOSPHORUS 2023-01-15 08:15:00 Benita Rockwell [facility] MAGNESIUM 2023-01-15 08:15:00 Benita Rockwell [facility] BASIC METABOLIC PANEL (NA, K , CL, CO2, GLUCOSE, BUN, CREATININE, CA) 2023-01-15 08:15:00 Benita Rockwell [facility] CBC WITH DIFF 2023-01-15 08:15:00 Benita Rockwell Daphnie [facility] PROTHROMBIN TIME / INR 2023-01-15 08:15:00 [place] 2023-01-14 10:14:00 [facility] 2023-01-14 10:14:00 Moiz [facility] BASIC METABOLIC PANEL (NA, K , CL, CO2, GLUCOSE, BUN, CREATININE, CA) 2023-01-14 10:14:00 Moiz [facility] CBC WITH DIFF 2023-01-14 10:14:00 Moiz [facility] PHOSPHORUS 2023-01-14 10:14:00 Moiz [facility] MAGNESIUM 2023-01-14 10:14:00 Moiz [facility] BASIC METABOLIC PANEL (NA, K , CL, CO2, GLUCOSE, BUN, CREATININE, CA) 2023-01-14 10:14:00 Moiz [facility] CBC WITH DIFF 2023-01-14 10:14:00 Moiz [facility] CBC WITH DIFF 2023-01-13 10:45:00 Vaishnavi [facility] BASIC METABOLIC PANEL (NA, K , CL, CO2, GLUCOSE, BUN, CREATININE, CA) 2023-01-13 10:45:00 Vaishnavi, [facility] MAGNESIUM 2023-01-13 10:45:00 Vaishnavi, [facility] PHOSPHORUS 2023-01-13 10:45:00 Vaishnavi, [facility] HEPATIC FUNCTION PANEL (8007 6) (ALB,T.PRO,BILI T,BU/BC,ALT,AST,ALK PHOS) 2023-01-13 10:45:00 Vaishnavi, [facility] PHOSPHORUS 2023-01-13 10:45:00 Vaishnavi, [facility] MAGNESIUM 2023-01-13 10:45:00 Vaishnavi, [facility] HEPATIC FUNCTION PANEL (8007 6) (ALB,T.PRO,BILI T,BU/BC,ALT,AST,ALK PHOS) 2023-01-13 10:45:00 Vaishnavi, [facility] BASIC METABOLIC PANEL (NA, K , CL, CO2, GLUCOSE, BUN, CREATININE, CA) 2023-01-13 10:45:00 Vaishnavi, [facility] CBC WITH DIFF 2023-01-13 10:45:00 Vaishnavi, [facility] GLUCOSE BODY FLUID 2023-01-12 20:44:00 Vaishnavi, [facility] BODY FLUID MANUAL DIFF 2023-01-12 20:44:00 Vaishnavi, [facility] T.PROTEIN BODY FLUID 2023-01-12 20:44:00 Vaishnavi, [facility] ASPIRATE OR ABSCESS CULTURE(AEROBIC/ANAEROBIC) 2023-01-12 20:44:00 Vaishnavi, [facility] LDH TOTAL BODY FLUID 2023-01-12 20:44:00 Vaishnavi, [facility] GLUCOSE BODY FLUID 2023-01-12 20:44:00 Vaishnavi, [facility] T.PROTEIN BODY FLUID 2023-01-12 20:44:00 Vaishnavi, [facility] BODY FLUID DIRECT COUNT 2023-01-12 20:44:00 Vaishnavi, [facility] ASPIRATE OR ABSCESS CULTURE(AEROBIC/ANAEROBIC) 2023-01-12 20:44:00 Vaishnavi, [facility] LDH TOTAL BODY FLUID 2023-01-12 20:44:00 Vaishnavi, [facility] PROTHROMBIN TIME / INR 2023-01-12 08:13:00 Vaishnavi, [facility] PROTHROMBIN TIME / INR 2023-01-12 08:13:00 Vaishnavi, [facility] COMP. METABOLIC PANEL (47170) 2023-01-12 03:49:00 Ricky [facility] COMP. METABOLIC PANEL ([id number]) 2023-01-12 03:49:00 Zehra García [facility] CT ABDOMEN PELVIS W CONTRAST 2023-01-12 03:32:06 Ricky Zehra Joana [facility] CT ABDOMEN PELVIS W CONTRAST 2023-01-12 03:32:06 Zehra García Joana [facility] POCT TEST 2023-01-12 03:02:00 Zehra García [facility] POCT TEST 2023-01-12 03:02:00 Zehra García [facility] URINALYSIS 2023-01-12 02:56:00 Zehra García Joana [facility] LIPASE 2023-01-12 02:56:00 Zehra García [facility] TOTAL BETA HCG ASSAY 2023-01-12 02:56:00 Ricky [facility] CBC WITH DIFF 2023-01-12 02:56:00 Ricky [facility] EXTRA TUBE ORANGE 2023-01-12 02:56:00 Artur [facility] EXTRA TUBE LAV 2023-01-12 02:56:00 [facility]-01-12 02:56[facility]00 [facility]CG [facility] 2023-01-12 02:56:00 Zehra García [facility] CBC WITH DIFF 2023-01-12 02:56:00 [facility] 2023-01-12 02:56:00 Ricky [facility] EXTRA TUBE LAV 2023-01-12 02:56:00 [facility]ANGE 2023-01-12 02:56:00 Miguel Ángel Siddiqui [facility] CONSENT/REFUSAL FOR DIAGNOSI S AND TREATMENT 2023-01-12 01:46:10 Doctor Unassigned, [place] [facility] CONSENT/REFUSAL FOR DIAGNOSI S AND TREATMENT 2023-01-12 01:46:10 Doctor Unassigned, [place] [facility] ASSIGNMENT OF BENEFITS 2022-11-21 19:49:02 Doctor Unassigned, [place] [facility] ASSIGNMENT OF BENEFITS 2022-11-21 19:49:02 Doctor Unassigned, [place] [facility] CONSENT/REFUSAL FOR DIAGNOSI S AND TREATMENT 2022-11-21 18:03:25 Doctor Unassigned, [place] [facility] CONSENT/REFUSAL FOR DIAGNOSI S AND TREATMENT 2022-11-21 18:03:25 Doctor Unassigned, [place] [facility] EMERGENCY SERVICES AGREEMENT S AND AUTHORIZATIONS 2022-11-21 05:01:00 Doctor Unassigned, [place] [facility] CONSENT/REFUSAL FOR DIAGNOSI S AND TREATMENT 2022-09-05 13:42:02 Doctor Unassigned, [place] [facility] LIPASE 2022-07-31 23:13:00 Blane [facility] TEST, SERUM 2022-07-31 23:13:00 Blane [facility] COMP. METABOLIC PANEL ([id number]) 2022-07-31 23:13:00 Blane [facility] CBC WITH DIFF 2022-07-31 23:13:00 Blane [facility] CONSENT/REFUSAL FOR DIAGNOSI S AND TREATMENT 2022-07-31 22:49:17 Doctor Unassigned, [place] [facility] XR ANKLE 3+ VW RIGHT 2022-07-15 16:00:00 Beba Kaur [facility] XR FOOT 3+ VW RIGHT 2022-07-15 16:00:00 Beba Kaur [facility] XR FOOT 3+ VW RIGHT 2022-07-15 16:00:00 Beba Kaur [facility] PATIENT FINANCIAL POLICY 2022-07-15 15:25:53 Doctor Unassigned, [place] [facility] POCT MOLECULAR STREP 2022-06-23 16:06:00 Unknown, Attending [facility] ASSIGNMENT OF BENEFITS 2022-06-23 15:18:28 Doctor Unassigned, [place] [facility] COMP. METABOLIC PANEL ([id number]) 2022-05-05 19:14:00 Karon Norton [facility] CBC WITH DIFF 2022-05-05 19:14:00 Karon Norton [facility] POCT TEST 2022-05-05 19:00:00 Karon Norton [facility] URINALYSIS 2022-05-05 18:58:00 Karon Norton [facility] CT ABDOMEN PELVIS WO CONTRAST 2022-04-26 15:11:00 Singer [facility] COMP. METABOLIC PANEL ([id number]) 2022-04-26 14:49:00 Singer [facility] CBC WITH DIFF 2022-04-26 14:49:00 Singer [facility] URINALYSIS 2022-04-26 14:49:00 Singer [facility] POCT TEST 2022-04-26 14:45:00 Singer [facility] CONSENT/REFUSAL FOR DIAGNOSI S AND TREATMENT 2022-04-26 14:22:29 Doctor Unassigned, [place] [facility] POCT TEST 2022-04-26 01:22:00 Singer [facility] ASSIGNMENT OF BENEFITS 2022-04-26 00:54:02 Doctor Unassigned, [place] [facility] URINALYSIS 2022-04-26 00:45:00 Singer [facility] CONSENT/REFUSAL FOR DIAGNOSI S AND TREATMENT 2022-04-26 00:16:47 Doctor Unassigned, [place] [facility] BASIC METABOLIC PANEL (NA, K , CL, CO2, GLUCOSE, BUN, CREATININE, CA) 2022-04-07 22:35:00 Olamide Garvin [facility] CBC WITH DIFF 2022-04-07 22:35:00 Olamide Garvin [facility] URINALYSIS 2022-04-07 21:36:00 Olamide Garvin [facility] URINE DRUG (IMMUNOASSAY) - COMPREHENSIVE DRUG SCREEN W/O REFLEX 2022-04-07 21:36:00 Olamide Garvin [facility] CONSENT/REFUSAL FOR DIAGNOSI S AND TREATMENT 2022-04-07 19:29:15 Doctor Unassigned, [place] [facility] POCT TEST 2022-03-24 14:07:00 Kellie Piper [facility] CONSENT/REFUSAL FOR DIAGNOSI S AND TREATMENT 2022-03-24 13:27:20 Doctor Unassigned, [place] [facility] CT ABDOMEN PELVIS WO CONTRAST 2022-03-15 14:09:04 Lydia Colmenares [facility] URINALYSIS 2022-03-15 13:53:00 Lydia Colmenares [facility] POCT TEST 2022-03-15 13:52:00 Lydia Colmenares [facility] CONSENT/REFUSAL FOR DIAGNOSI S AND TREATMENT 2022-03-15 13:37:02 Doctor Unassigned, [place] [facility] POCT TEST 2022-03-11 14:59:00 Angelica Viveros [facility] FLU VACC (), 6 MO-6 4 YRS, .5ML, IM, QUAD (FLUCELVAX) 2022-02-27 13:34:55 Ca Martinez [facility] NOTICE OF PRIVACY PRACTICES 2022-02-21 06:06:30 Doctor Unassigned, [place] [facility] CONSENT/REFUSAL FOR DIAGNOSI S AND TREATMENT 2022-02-21 06:03:41 Doctor Unassigned, [place] [facility] XR ANKLE <3 VW RIGHT 2022 17:56:42 Maggie Hamilton [facility] CT ABDOMEN PELVIS W CONTRAST 2022 17:44:17 Maggie Hamilton [facility] CT TRAUMA CERVICAL SPINE WO CONTRAST 2022 17:43:49 Maggie Hamilton [facility] POCT TEST 2022 17:27:00 Maggie Hamilton [facility] COMP. METABOLIC PANEL ([id number]) 2022 17:17:00 Maggie Hamilton [facility] CBC WITH DIFF 2022 17:17:00 Maggie Hamilton [facility] CONSENT/REFUSAL FOR DIAGNOSI S AND TREATMENT 2022 16:53:13 Doctor Unassigned, [place] [facility] US GALL BLADDER 2022-01-18 12:31:09 Rosendo Levy [facility] US PELVIS COMPLETE WITH TRANSVAGINAL 2022-01-18 12:21:13 Melvin Zhao [facility] CT ABDOMEN PELVIS W CONTRAST 2022-01-18 11:20:50 Melvin Zhao [facility] POCT TEST 2022-01-18 10:57:00 Juan Kennedy [facility] COVID-19 (ID NOW RAPID TESTING) 10:57:00 Juan Kennedy [facility] URINALYSIS 2022-01-18 10:47:00 Juan Kennedy [facility] LIPASE 2022-01-18 10:29:00 Juan Kennedy [facility] TEST, SERUM 2022-01-18 10:29:00 Juan Kennedy [facility] HEPATIC FUNCTION PANEL ([id number]) (ALB,T.PRO,BILI T,BU/BC,ALT,AST,ALK PHOS) 2022-01-18 10:29:00 Juan Kennedy [facility] BASIC METABOLIC PANEL (NA, K , CL, CO2, GLUCOSE, BUN, CREATININE, CA) 2022-01-18 10:29:00 Juan Kennedy [facility] CBC WITH DIFF 2022-01-18 10:29:00 Juan Kennedy [facility] CONSENT/REFUSAL FOR DIAGNOSI S AND TREATMENT 2022-01-18 10:13:31 Doctor Unassigned, [place] [facility] CT HEAD WO CONTRAST 2022-01-15 15:22:29 Maura Cox [facility] TEST, SERUM 2022-01-15 14:36:00 Maura Cox [facility] BASIC METABOLIC PANEL (NA, K , CL, CO2, GLUCOSE, BUN, CREATININE, CA) 2022-01-15 14:36:00 Maura Cox [facility] CBC WITH DIFF 2022-01-15 14:36:00 Maura Cox [facility] CONSENT/REFUSAL FOR DIAGNOSI S AND TREATMENT 2022-01-15 13:28:12 Doctor Unassigned, [place] [facility] XR CERVICAL SPINE 4 VW 2022-01-09 00:29:16 Gabriela [facility] XR LUMBAR SPINE 4 VW 2022-01-09 00:29:16 Gabriela [facility] XR SPINE THORACIC 3 VW 2022-01-09 00:29:16 Gabriela, Humberto [facility] URINALYSIS 2022-01-08 23:50:00 Humberto Ochoa [facility] CONSENT/REFUSAL FOR DIAGNOSI S AND TREATMENT 2022-01-08 22:51:08 Doctor Unassigned, [place] [facility] GALV ONLY - VAGINAL PATHOGEN S BY NUCLEIC ACID TESTING 2021-12-12 18:37:00 Prasanna Vargas [facility] URINE CULTURE 2021-12-12 18:32:00 Prasanna Vargas [facility] POCT TEST 2021-12-12 18:31:00 Prasanna Vargas [facility] POCT URINALYSIS W/O SPECIFIC GRAVITY 2021-12-12 18:31:00 Prasanna Vargas [facility] Encounters Start Date/Time End Date/Time Encounter Type Admission Type Attending [facility] Facility Care Department Encounter ID Source 2024-08-04 08:31:01 Outpatient Tiara Dorado [facility] [id number] [facility] 2021-03-14 03:14:31 Emergency [facility] [id number] [facility] ity [facility] 2021-03-13 20:05:20 [facility] [id number] 2021-03-13 12:48:28 Emergency [facility] [id number] [facility] it[facility] 2021-03-13 02:43:51 Emergency [facility] [id number] [facility] it[facility] 2021-03-13 00:27:09 Emergency [facility] [id number] [facility] it[facility] 2021-03-12 22:10:36 Emergency [facility] [id number] [facility] it[facility] 2021-03-12 20:04:05 Emergency [facility] [id number] [facility] ity [facility] 2021-03-12 15:25:05 Emergency [facility] [id number] [facility] 2021-03-12 11:43:36 Emergency [facility] [id number] [facility] 2021-03-12 07:41:37 [place] [facility] [place] [id number] [facility] 2021-03-12 05:43:47 Emergency [facility] [id number] [facility] 2021-03-12 03:43:41 Emergency [facility] [id number] [facility] 2021-03-12 01:31:27 Emergency [facility] [id number] [facility] 2021-03-12 00:56:44 Emergency [facility] ERT [id number] [facility] 2021-03-12 00:56:31 Emergency [facility] [id number] [facility] 2021-03-11 17:47:02 Emergency [facility] [id number] [facility] 2021-03-11 16:27:15 Emergency [facility] [id number] [facility] 2021-03-11 12:00:58 Emergency [facility] [place] [id number] [facility] 2021-03-11 10:33:59 Emergency [facility] [place] [id number] [facility] 2021-03-11 01:36:52 Emergency [facility] [id number] [facility] 2021-03-10 23:35:34 Emergency [facility] [place] [id number] [facility] 2021-03-10 19:06:16 Emergency [facility] [id number] [facility] 2021-03-10 12:39:47 Emergency [facility] [id number] [facility] 2021-03-10 06:54:04 [facility] [id number] 2021-03-09 13:25:44 Outpatient P [facility] [id number] [facility] 2021-03-09 13:08:01 Outpatient [facility] [id number] [facility] 2021-03-09 12:37:25 Outpatient [facility] [id number] [facility] 2021-03-09 11:51:20 Outpatient [facility] [id number] [facility] 2024-08-16 08:05:00 2024-08-16 10:57:00 Emergency X [place] LEONELA [facility] ERT [id number] [facility] 2024-08-16 08:05:00 2024-08-16 10:57:00 Emergency Leonela Veloz [facility] 1.114 350.1.13.10 4.2.7.2.686 [id number] [facility] 2024-08-02 10:16:00 2024-08-02 12:25:00 Emergency X ALEKSANDR STEWART JULIO [facility] ERT [id number] [facility] 2024-08-02 10:16:00 2024-08-02 12:25:00 Emergency Aleksandr Stewart [facility] 1.114 350.1.13.10 4.2.7.2.686 [id number] [facility] 2024-07-27 17:21:07 2024-07-27 17:21:07 Outpatient [facility] [id number] Willis Gil 2024-02-28 00:00:00 2024-06-27 06:46:51 Orders Only Doctor Unassigned, [place] Doctor Unassigned, [place] [facility] 1.114 350.1.13.10 4.2.7.2.686 [id number] [facility] 2022-08-27 00:00:00 2024-06-27 02:42:04 Orders Only Palak Marrufo Perla [facility] 1.114 350.1.13.10 4.2.7.2.686 [id number] [facility] 2022-08-28 00:00:00 2024-06-27 02:42:02 Orders Only Marrufo, Palak Marrufo, Palak [facility] 1.2.840.114 350.1.13.10 4.2.7.2.686 [id number] [facility] 2022-08-29 00:00:00 2024-06-27 02:41:59 Orders Only Marrufo, Palak Marrufo, Palak [facility] TALYA?[facility] 1.2.840.114 350.1.13.10 4.2.7.2.686 [id number] [facility] 2022-09-24 00:00:00 2024-06-27 02:41:25 Orders Only Marrufo, Palak Marrufo, Pal[facility] 1.2840.114 350.1.13.10 4.2.7.2.686 [id number] [facility] 2022-09-27 00:00:00 2024-06-27 02:41:19 Orders Only Marrufo, Palak Marrufo, Palak [facility] TALYA?[facility] 1.2840.114 350.1.13.10 4.2.7.2.686 [id number] [facility] 2022-10-02 00:00:00 2024-06-27 02:41:14 Orders Only Marrufo, Palak Marrufo, Palak [facility] TALYA?[facility] 1.2840.114 350.1.13.10 4.2.7.2.686 [id number] [facility] 2022-11-15 00:00:00 2024-06-27 02:40:23 Orders Only Marrufo, Palak Marrufo, Palak [facility] TALYA?[facility] 1.2840.114 350.1.13.10 4.2.7.2.686 [id number] [facility] 2024-05-19 12:49:00 2024-05-19 16:37:00 Emergency X ANAMARIA GONZALES DONNELL [facility] ERT [id number] [facility] 2024-05-19 12:49:00 2024-05-19 16:37:00 Emergency Anamaria Gonzales [facility] 1.2.840.114 350.1.13.10 4.2.7.2.686 [id number] [facility] 2024-04-19 07:55:00 2024-04-19 09:58:00 Emergency X ROSENDO LEVY BRENT [facility] ERT [id number] [facility] 2024-04-19 07:55:00 2024-04-19 09:58:00 Emergency Rosendo Levy [facility] 1.2840.114 350.1.13.10 4.2.7.2.686 [id number] [facility] 2024-03-18 00:00:00 2024-04-18 18:19:35 Patient Secure Msg Doctor Unassigned, [place] Doctor Unassigned, [place] [facility] 1.2840.114 350.1.13.10 4.2.7.2.686 [id number] [facility] 2024-04-12 11:54:00 2024-04-12 14:39:00 Emergency T ARAM PARADA [facility] STR [id number] [facility] 2024-04-12 11:54:00 2024-04-12 14:39:00 Emergency Aram Parada [facility] ([facility] 1.2.840.114 350.1.13.10 4.2.7.2.686 [id number] [facility] 2024-04-12 09:23:00 2024-04-12 10:42:00 Emergency X MAGGIE HAMILTON SANDRA [facility] ERT [id number] [facility] 2024-04-12 09:23:00 2024-04-12 10:42:00 Emergency Onesimo, Olamide Maggie Wise [facility] 1.2840.114 350.1.13.10 4.2.7.2.686 [id number] [facility] 2024-03-10 09:43:00 2024-03-13 10:40:00 Inpatient X TAJ DE PAZ MICHAEL [facility] [id number] [facility] 2024-03-10 09:43:00 2024-03-13 10:40:00 [facility] Manuel, Jose Mao, Taj Milner [facility] 1.2840.114 350.1.13.10 4.2.7.2.686 [id number] [facility] 2024-03-06 00:00:00 2024-03-06 08:40:48 Transition of Care Odell, Marlys Jose R, Marlys [place] [place] 1.2840.114 350.1.13.10 4.2.7.2.686 [id number] [facility] 2024-03-04 06:46:00 2024-03-05 16:30:00 Outpatient X JOSE MANDUJANO MYRNA [facility] [id number] [facility] 2024-03-04 06:46:00 2024-03-05 16:30:00 Emergency Jesus Muñoz Myrna [facility] 1.2840.114 350.1.13.10 4.2.7.2.686 [id number] [facility] 2024-03-03 00:00:00 2024-03-04 15:45:46 Patient Secure Msg Jas Buenrostro [facility] 1.2.840.114 350.1.13.10 4.2.7.2.686 [id number] [facility] 2024-03-03 00:00:00 2024-03-03 12:14:14 Telephone Giselle Vance [facility] ([place]) 1.2.840.114 350.1.13.10 4.2.7.2.686 [id number] [facility] 2024-02-28 00:00:00 2024-02-28 09:08:41 Transition of Care Tc Renteria Michele A [place] 1.2840.114 350.1.13.10 4.2.7.2.686 [id number] [facility] 2024-02-22 09:35:00 2024-02-27 16:59:00 Inpatient X HANY LEE [facility] NATTY [id number] [facility] 2024-02-22 09:35:00 2024-02-27 16:59:00 Hospital Encounter Colin Jones Megan A [facility] ([facility]) 1.2840.114 350.1.13.10 4.2.7.2.686 [id number] [facility] 2024-02-27 09:40:00 2024-02-27 10:51:00 Surgery BuenrostroSaulo vargashif [facility] 1.2.840.114 350.1.13.10 4.2.7.2.686 [id number] [facility] 2024-02-27 09:22:00 2024-02-27 10:26:00 Anesthesia Event Peter Reece [facility] 1.2.840.114 350.1.13.10 4.2.7.2.686 [id number] [facility] 2024-02-24 00:00:00 2024-02-24 09:18:09 Telephone Naty Buenrostro [facility] 1.2.840.114 350.1.13.10 4.2.7.2.686 [id number] [facility] 2023-12-23 15:39:53 2023-12-23 15:39:53 Outpatient SFA [facility] [id number] Willis Gil 2023-12-08 14:51:46 2023-12-08 14:51:46 Outpatient [facility] [id number] Willis Gil 2023-09-12 00:00:00 2023-09-12 00:00:00 Outpatient R ROLDAN WALKER [facility] [id number] General acute hospital 2023-08-26 00:00:00 2023-08-26 00:00:00 Transition of Care Odell Marlys WAIApril [place] 1.2.840.114 350.1.13.10 4.2.7.2.686 [id number] [facility] 2023-08-23 08:31:00 2023-08-24 13:25:00 Outpatient X ROLDAN WALKER [facility] [id number] General acute hospital 2023-08-04 14:56:23 2023-08-04 14:56:23 Outpatient SFA [facility] [id number] Willis Rivera Jeffery 2023-06-27 14:47:45 2023-06-27 14:47:45 Outpatient SFA [facility] [id number] Willis Gil 2023-05-19 09:04:00 2023-05-19 12:20:00 Emergency X TOD AGUILAR [facility] ERT [id number] [facility] 2023-05-19 09:04:00 2023-05-19 12:20:00 Emergency Tod Aguilar [facility] 1..114 350.1.13.10 4.2.7.2.686 [id number] [facility] 2023-04-05 00:00:00 2023-04-05 00:00:00 Patient Secure Prasanna Kang [facility] 1..114 350.1.13.10 4.2.7.2.686 [id number] [facility] 2023-02-14 12:59:23 2023-02-14 12:59:23 Outpatient SFA [facility] [id number] Willis Gil 2023-02-06 18:19:02 2023-02-06 18:19:02 Outpatient SFA [facility] [id number] Willis Gil 2023-01-30 00:00:00 2023-01-30 00:00:00 Outpatient [facility] [id number] [facility] 2023-01-16 00:00:00 2023-01-16 00:00:00 Transition of Care Marlys Odell 1..114 350.1.13.10 4.2.7.2.686 [id number] [facility] 2023-01-11 21:06:00 2023-01-15 16:00:00 Inpatient X [facility] [id number] [facility] 2023-01-11 21:06:00 2023-01-15 16:00:00 Hospital Encounter Miguel Ángel Siddiqui, Kun Beltran [facility] 1..114 350.1.13.10 4.2.7.2.686 [id number] [facility] 2023-01-12 00:00:00 2023-01-12 00:00:00 Travel 1.2.840.1 10635.1.1 3.104.2.7 .[id number] .8 1.2.840.114 350.1.13.10 4.2.7.3.698 084.8 [id number] [facility] 2023-01-11 00:00:00 2023-01-11 00:00:00 Travel 1.2.840.1 38362.1.1 3.104.2.7 .3.824613 .8 1.2.840.114 350.1.13.10 4.2.7.3.698 084.8 [id number] [facility] 2022-12-28 00:00:00 2022-12-28 00:00:00 Outpatient [facility] [id number] 2022-12-14 18:37:13 2022-12-14 18:37:13 Outpatient [facility] [id number] Willis Gil 2022-12-13 00:00:00 2022-12-13 00:00:00 Outpatient [facility] [id number] [facility] 2022-12-12 09:30:00 2022-12-12 09:30:00 Outpatient PRASANNA LOOMIS [facility] [id number] [facility] 2022-11-21 13:08:00 2022-11-21 16:45:00 Emergency MANJU BARRAGAN [facility] E[facility] [id number] [facility] 2022-11-21 13:08:00 2022-11-21 16:45:00 Emergency Oc Bridges Christopher 1.2.840.1 17719.1.1 3.104.2.7 .3.985416 .8 [id number] [facility] 2022-11-21 00:00:00 2022-11-21 00:00:00 Travel 1.2.840.1 15476.1.1 3.104.2.7 .3.526205 .8 1.2.840.114 350.1.13.10 4.2.7.3.698 [id number] [facility] 2022-11-18 10:08:00 2022-11-18 10:08:00 Outpatient [facility] [id number] Willis Gil 2022-11-15 09:40:00 2022-11-15 09:40:00 Outpatient JEREMY LABOY CHRISTINE [facility] [id number] [facility] 2022-11-09 15:26:18 2022-11-09 15:26:18 Outpatient [facility] [id number] Willis Gil 2022-11-06 13:00:00 2022-11-06 13:00:00 Outpatient CA ARAUZ [facility] [id number] [facility] 2022-10-29 00:00:00 2022-10-29 00:00:00 Patient Secure Msg Jeremy Greene 1.2.840.1 79530.1.1 3.104.2.7 .3.028363 .8 [id number] [facility] 2022-10-29 00:00:00 2022-10-29 00:00:00 Patient Secure Msg Prasanna Vargas 1.2.840.1 03847.1.1 3.104.2.7 .3.638627 .8 [id number] [facility] 2022-10-03 00:00:00 2022-10-03 00:00:00 Letter (Out) [facility]old[facility] 1.2.840.114 350.1.13.10 4.2.7.2.686 [id number] [facility] 2022-10-02 10:00:00 2022-10-02 10:00:00 Outpatient DESIREE SALMON [facility] [id number] [facility] 2022-10-01 09:40:00 2022-10-01 09:40:00 Outpatient REJI COOPER [facility] [id number] [facility] 2022-09-25 00:00:00 2022-09-25 00:00:00 Telephone Rad Serra [facility] NAL BUILD[facility] 1.2.840.114 350.1.13.10 4.2.7.2.686 [id number] [facility] 2022-09-21 09:30:00 2022-09-21 09:30:00 Outpatient LONNY MCKINLEYSSICA [facility] [id number] [facility] 2022-09-21 00:00:00 2022-09-21 00:00:00 Letter (Out) [facility] T[facility] OFF[facility] BUILD[facility] 1.2.840.114 350.1.13.10 4.2.7.2.686 [id number] [facility] 2022-09-21 00:00:00 2022-09-21 00:00:00 Telephone [facility] 1.2.840.114 350.1.13.10 4.2.7.2.686 [id number] [facility] 2022-09-21 00:00:00 2022-09-21 00:00:00 Telephone [facility]y [facility] T[facility] OFF[facility] BU[facility] 1.2.840.114 350.1.13.10 4.2.7.2.686 [id number] [facility] 2022-09-14 09:30:00 2022-09-14 09:30:00 Outpatient KASSANDRA MCKINLEY [facility] [id number] [facility] 2022-09-12 00:00:00 2022-09-12 00:00:00 [facility] 1.2.840.114 350.1.13.10 4.2.7.2.686 [id number] [facility] 2022-09-07 11:30:00 2022-09-07 11:30:00 [facility] [id number] [facility] 2022-09-05 08:44:00 2022-09-05 13:15:00 Emergency X KENNEDY HUTCHINS [facility] ERT [id number] [facility] 2022-09-05 08:44:00 2022-09-05 13:15:00 Emergency LisetKennedy lopez [facility] 1.2.840.114 350.1.13.10 4.2.7.2.686 [id number] [facility] 2022-09-04 00:00:00 2022-09-04 00:00:00 [facility] 1.2.840.114 350.1.13.10 4.2.7.2.686 [id number] 092 [id number] [facility] 2022-09-04 00:00:00 2022-09-04 00:00:00 Patient Secure Msg Rad Serra [facility] N[facility] 1.2.840.114 350.1.13.10 4.2.7.2.686 [id number] [facility] 2022-08-29 09:00:00 2022-08-29 09:00:00 Outpatient R DESIREE FINNEY [facility] [id number] [facility] 2022-08-14 00:00:00 2022-08-14 00:00:00 Patient Secure Msg Doctor Unassigned, [place] [facility] MED[facility] OFFICE BUILDING 1.2.840.114 350.1.13.10 4.2.7.2.686 [id number] [facility] 2022-07-31 17:56:00 2022-07-31 20:30:00 Emergency X MANJU ARGUELLES [facility] ERT [id number] [facility] 2022-07-31 17:56:00 2022-07-31 20:30:00 Emergency Manju Arguelles [facility] 1.2840.114 350.1.13.10 4.2.7.2.686 [id number] [facility] 2022-07-15 09:46:45 2022-07-15 23:59:00 Outpatient R BEBA KAUR [facility] [id number] [facility] 2022-07-15 09:46:45 2022-07-15 23:59:00 Hospital Encounter B[facility] MED[facility] OFF[facility] BUILD[facility] 1.840.114 350.1.13.10 4.2.7.2.686 [id number] [facility] 2022-07-15 09:46:45 2022-07-15 23:59:00 Hospital Encounter Beba Kaur [facility] MED[facility] OFF[facility] BUILD[facility] 1.2840.114 350.1.13.10 4.2.7.2.686 [id number] [facility] 2022-07-15 09:20:00 2022-07-15 10:29:17 Urgent Care Beba Kaur Unknown, Attending [facility] MED[facility] OFFICE BUILDING 1.2840.114 350.1.13.10 4.2.7.2.686 [id number] [facility] 2022-07-15 00:00:00 2022-07-15 00:00:00 Orders Only Doctor Unassigned, [place] [facility] 1.2.840.114 350.1.13.10 4.2.7.2.686 [id number] [facility] 2022-06-23 09:20:00 2022-06-23 10:27:39 Outpatient R PAUL SAMAYOA [facility] [id number] [facility] 2022-06-23 09:20:00 2022-06-23 10:27:39 Urgent Care Paul Samayoa Unknown, Attending [facility] [facility] 1.2.840.114 350.1.13.10 4.2.7.2.686 [id number] [facility] 2022-06-23 00:00:00 2022-06-23 00:00:00 Orders Only Doctor Unassigned, [place] [facility] 1.2.840.114 350.1.13.10 4.2.7.2.686 [id number] [facility] 2022-06-15 09:40:00 2022-06-15 09:40:00 Outpatient JEREMY LABOY [facility] [id number] [facility] 2022-05-29 08:00:00 2022-05-29 08:00:00 Outpatient KASSANDRA MCKINLEY [facility] [id number] [facility] 2022-05-15 09:20:00 2022-05-15 09:20:00 Outpatient BENNETT MOORE [facility] [id number] [facility] 2022-05-11 09:30:00 2022-05-11 09:30:00 Outpatient KASSANDRA MCKINLEY [facility] [id number] [facility] 2022-05-05 12:26:00 2022-05-05 16:11:00 Emergency X KARON NORTON [facility] ERT [id number] [facility] 2022-05-05 12:26:00 2022-05-05 16:11:00 Emergency Karon Norton [facility] 1.840.114 350.1.13.10 4.2.7.2.686 [id number] [facility] 2022-05-01 00:00:00 2022-05-01 00:00:00 Outpatient R PRASANNA VARGAS VIEN [facility] [id number] [facility] 2022-04-26 08:30:00 2022-04-26 09:59:00 Emergency X OC BRIDGES [facility] ERT [id number] [facility] 2022-04-26 08:30:00 2022-04-26 09:59:00 Emergency Oc Bridges [facility] 1.84.114 350.1.13.10 4.2.7.2.686 [id number] [facility] 2022-04-25 18:23:00 2022-04-25 21:55:00 Emergency X KENNEDY HUTCHINS [facility] ERT [id number] [facility] 2022-04-25 18:23:00 2022-04-25 21:55:00 Emergency Kennedy Hutchins [facility] 1.840.114 350.1.13.10 4.2.7.2.686 [id number] [facility] 2022-04-19 10:00:00 2022-04-19 10:00:00 Outpatient JEREMY LABOY [facility] [id number] [facility] 2022-04-12 00:00:00 2022-04-12 00:00:00 Telephone Kassandra Pugh [facility]?KARLOSKassandra [facility] OFF[facility] BUILDING 1.2.840.114 350.1.13.10 4.2.7.2.686 [id number] [facility] 2022-04-11 00:00:00 2022-04-11 00:00:00 Telephone Darrion Armstrong [facility] OFF[facility] BU[facility] 1.0.114 350.1.13.10 4.2.7.2.686 [id number] [facility] 2022-04-10 00:00:00 2022-04-10 00:00:00 Telephone Kassandra Pugh [facility] 1.0.114 350.1.13.10 4.2.7.2.686 [id number] [facility] 2022-04-09 09:30:00 2022-04-09 09:30:00 Office Visit Lonny Pughssica [facility] 1.840.114 350.1.13.10 4.2.7.2.686 [id number] [facility] 2022-04-09 09:30:00 2022-04-09 09:21:44 Outpatient R LEXY [facility] [id number] [facility] 2022-04-07 13:41:00 2022-04-07 17:49:00 Emergency X OLAMIDE GARVIN [facility] ERT [id number] [facility] 2022-04-07 13:41:00 2022-04-07 17:49:00 Emergency Olamide Garvin G [facility] 1..114 350.1.13.10 4.2.7.2.686 [id number] [facility] 2022-04-07 00:00:00 2022-04-07 00:00:00 Patient Secure Msg Doctor Unassigned, [place] [facility] 1.0.114 350.1.13.10 4.2.7.2.686 [id number] [facility] 2022-04-04 00:00:00 2022-04-04 00:00:00 Telephone LexyLonnyKassandra [facility] MED[facility] OFF[facility] BUILD[facility] 1.2.840.114 350.1.13.10 4.2.7.2.686 [id number] [facility] 2022-04-02 10:30:00 2022-04-02 10:30:00 Outpatient LONNY MCKINLEYSSICA [facility] [id number] [facility] 2022-03-28 00:00:00 2022-03-28 00:00:00 Patient Secure Msg Doctor Unassigned, [place] [facility] 1..840.114 350.1.13.10 4.2.7.2.686 [id number] [id number] [facility] 2022-03-24 07:35:00 2022-03-24 13:11:00 Emergency X KELLIE PIPER [facility] ERT [id number] [facility] 2022-03-24 07:35:00 2022-03-24 13:11:00 Emergency Kellie Piper [facility] 1..840.114 350.1.13.10 4.2.7.2.686 [id number] [facility] 2022-03-23 10:30:00 2022-03-23 10:30:00 Outpatient KASSANDRA MCKINLEY [facility] [id number] [facility] 2022-03-23 00:00:00 2022-03-23 00:00:00 Telephone Darrion [facility] OFF[facility] BUILDING 1.2.840.114 350.1.13.10 4.2.7.2.686 [id number] [facility] 2022-03-22 00:00:00 2022-03-22 00:00:00 Telephone Patti, [facility] 1..840.114 350.1.13.10 4.2.7.2.686 [id number] [id number] [facility] 2022-03-22 00:00:00 2022-03-22 00:00:[address] [facility] TALYA?[facility] 1..840.114 350.1.13.10 4.2.7.2.686 [id number] [facility] 2022-03-21 00:00:00 2022-03-21 00:00:[address] [facility] TALYA?[facility] 1..840.114 350.1.13.10 4.2.7.2.686 [id number] [facility] 2022-03-15 14:00:00 2022-03-15 14:36:19 [facility] [id number] 2022-03-15 14:00:00 2022-03-15 14:36:19 [facility] 1..840.114 350.1.13.10 4.2.7.2.686 [id number] [facility] 2022-03-15 08:40:00 2022-03-15 10:47:00 Emergency X LYDIA COLMENARES [facility] ERT [id number] [facility] 2022-03-15 08:40:00 2022-03-15 10:47:00 Emergency Lydia Colmenares [facility] 1.2840.114 350.1.13.10 4.2.7.2.686 [id number] [facility] 2022-03-14 10:30:00 2022-03-14 10:30:00 Outpatient R PRASANNA VARGAS [facility] [id number] [facility] 2022-03-11 09:22:00 2022-03-11 12:15:00 Emergency X ANGELICA VIVEROS [facility] ERT [id number] [facility] 2022-03-11 09:22:00 2022-03-11 12:15:00 Emergency Angelica Viveros [facility] 1.2.840.114 350.1.13.10 4.2.7.2.686 [id number] [facility] 2022-03-06 08:30:00 2022-03-06 08:30:00 Outpatient [facility] [id number] [facility] 2022-03-02 00:00:00 2022-03-02 00:00:00 Telephone Darrion Armstrong [facility] MEDICAL OFFICE BUILDING 1..840.114 350.1.13.10 4.2.7.2.686 [id number] 092 [id number] [facility] 2022-02-28 00:00:00 2022-02-28 00:00:00 Patient Secure Msg Doctor Unassigned, [place] [facility] MEDICAL OFFICE BUILDING 1..840.114 350.1.13.10 4.2.7.2.686 [id number] [id number] [facility] 2022-02-27 09:30:00 2022-02-27 09:49:42 Outpatient R LEXY KASSANDRA [facility] [id number] [facility] 2022-02-27 09:30:00 2022-02-27 09:49:42 [facility] MED[facility] OFF[facility] BUILD[facility] 1..840.114 350.1.13.10 4.2.7.2.686 [id number] [id number] [facility] 2022-02-27 08:00:00 2022-02-27 09:12:17 Office Visit Ca Martinez [facility] 1.2840.114 350.1.13.10 4.2.7.2.686 [id number] [facility] 2022-02-26 11:30:00 2022-02-26 11:30:00 Outpatient KASSANDRA MCKINLEY [facility] [id number] [facility] 2022-02-21 01:20:00 2022-02-21 03:44:00 Emergency X MAGGIE HAMILTON [facility] ERT [id number] [facility] 2022-02-21 01:20:00 2022-02-21 03:44:00 Emergency Maggie Hamilton [facility] 1.2840.114 350.1.13.10 4.2.7.2.686 [id number] [facility] 2022-02-19 00:00:00 2022-02-19 00:00:00 Patient Secure Msg Kendal Zamudio [facility] MEDICAL OFFICE BUILDING 1.2840.114 350.1.13.10 4.2.7.2.686 [id number] [facility] 2022-02-19 00:00:00 2022-02-19 00:00:00 Patient Secure Msg Kendal Zamudio [facility] 1.2840.114 350.1.13.10 4.2.7.2.686 [id number] [id number] [facility] 2022-02-19 00:00:00 2022-02-19 00:00:00 Patient Secure Msg Santiago Valencia [facility] 1.2.840.114 350.1.13.10 4.2.7.2.686 [id number] [facility] 2022-02-19 00:00:00 2022-02-19 00:00:00 Patient Secure Ross Wong [facility] MATERNAL & CHILD [facility] 1..840.114 350.1.13.10 4.2.7.2.686 [id number] [facility] 2022 11:58:00 2022 15:13:00 Emergency X MAGGIE HAMILTON [facility] E[facility] [id number] [facility] 2022 11:58:00 2022 15:13:00 Emergency Maggie Hamilton [facility] 1.840.114 350.1.13.10 4.2.7.2.686 [id number] [facility] 2022-02-09 09:00:00 2022-02-09 09:00:00 Outpatient CRICKET FRYE [facility] [id number] [facility] 2022-02-06 10:00:00 2022-02-06 10:00:00 Outpatient CA ARAUZ [facility] [id number] [facility] 2022-02-05 09:45:00 2022-02-05 10:05:00 Nurse Visit Nurse, Filippo [facility] Willie Med[facility] 1..840.114 350.1.13.10 4.2.7.2.686 [id number] [facility] 2022-02-05 09:20:00 2022-02-05 09:20:00 Outpatient FLACO KEE [facility] [id number] [facility] 2022-01-26 00:00:00 2022-01-26 00:00:00 Case Management Prasanna Vargas [facility] N[facility] 1..840.114 350.1.13.10 4.2.7.2.686 [id number] [facility] 2022-01-22 11:00:00 2022-01-22 11:00:00 Outpatient CA ARAUZ [facility] [id number] [facility] 2022-01-19 00:00:00 2022-01-19 00:00:00 Patient Secure Msg Doctor Unassigned, [place] [facility] 1.84.114 350.1.13.10 4.2.7.2.686 [id number] [facility] 2022-01-18 05:17:00 2022-01-18 10:25:00 Emergency ROSENDO WALTON [facility] E[facility] [id number] [facility] 2022-01-18 05:17:00 2022-01-18 10:25:00 Emergency uJan Kennedy [facility] 1.0.114 350.1.13.10 4.2.7.2.686 [id number] [facility] 2022-01-15 08:34:00 2022-01-15 10:49:00 Emergency MAURA DALE [facility] [id number] [facility] 2022-01-15 08:34:00 2022-01-15 10:49:00 Emergency Larry Perez Robert Lee [facility] 1.840.114 350.1.13.10 4.2.7.2.686 [id number] [facility] 2022-01-08 18:04:00 2022-01-08 20:09:00 Emergency HUMBERTO WALLACE [facility] E[facility] [id number] [facility] 2022-01-08 18:04:00 2022-01-08 20:09:00 Emergency Humberto Ochoa [facility] 1.840.114 350.1.13.10 4.2.7.2.686 [id number] [facility] 2021-12-12 13:30:00 2021-12-12 13:40:21 Outpatient R DEYVI [facility] [id number] [facility] 2021-12-12 13:30:00 2021-12-12 13:40:21 Office Visit Prasanna [facility]argas [facility] ..840.114 350.1.13.10 4.2.7.2.686 [id number] [facility] 2021-12-12 13:30:00 2021-12-12 13:40:21 Outpatient R DEYVI [facility] [id number] [facility] 2021-12-12 13:30:00 2021-12-12 13:40:21 Outpatient R DEYVI [facility] [id number] [facility] 2021-12-11 16:15:00 2021-12-11 16:15:00 Outpatient R SUZETTESANTIAGO [facility] [id number] [facility] 2021-12-05 14:15:00 2021-12-05 14:15:00 Outpatient R ROMULO OMALLEY [facility] [id number] [facility] 2021-11-28 08:49:00 2021-11-28 11:02:00 Emergency X KARON NORTON [facility] E[facility] [id number] [facility] 2021-11-28 08:49:00 2021-11-28 11:02:00 Emergency Karon Norton [facility] 05.14.840.114 350.1.13.10 4.2.7.2.686 [id number] [facility] 2021-11-28 00:00:00 2021-11-28 00:00:00 Patient Secure Msg Cricket Taylor [facility] 840.114 350.1.13.10 4.2.7.2.686 [id number] [facility] 2021-11-24 18:14:00 2021-11-24 21:04:00 Emergency X Kaycee MÉNDEZ [facility] E[facility] [id number] [facility] 2021-11-24 18:14:00 2021-11-24 21:04:00 Emergency Kaycee Méndez Sharlene [facility] 1.2840.114 350.1.13.10 4.2.7.2.686 [id number] [facility] 2021-11-24 00:00:00 2021-11-24 00:00:00 Telephone Cricket Taylor [facility] 1..114 350.1.13.10 4.2.7.2.686 [id number] [facility] 2021-11-20 00:00:00 2021-11-20 00:00:00 Patient Secure Mslaila ZamudioJillianKendal Scott [facility] 1.84.114 350.1.13.10 4.2.7.2.686 [id number] [facility] 2021-11-19 00:00:00 2021-11-19 00:00:00 Letter (Out) Lesile Santacruz [facility] 1..114 350.1.13.10 4.2.7.2.686 [id number] [facility] 2021-11-18 10:41:40 2021-11-18 23:59:00 Outpatient R JAMES BOYDTANY [facility] [id number] [facility] 2021-11-18 10:41:40 2021-11-18 23:59:00 Hospital Encounter [facility] 1..840.114 350.1.13.10 4.2.7.2.686 [id number] [facility] 2021-11-18 10:20:00 2021-11-18 10:53:20 Urgent Care Oliver [facility] 1.840.114 350.1.13.10 4.2.7.2.686 [id number] [facility] 2021-11-09 10:30:00 2021-11-09 10:30:00 Outpatient DESIREE STONE [facility] [id number] [facility] 2021-10-25 13:20:00 2021-10-25 13:20:00 [facility] 1.840.114 350.1.13.10 4.2.7.2.686 [id number] [facility] 2021-10-25 13:20:00 2021-10-25 12:47:59 Outpatient WILLIE CASE [facility] [id number] [facility] 2021-10-25 00:00:00 2021-10-25 00:00:00 Patient Secure Msg [facility] 1.840.114 350.1.13.10 4.2.7.2.686 [id number] [facility] 2021-10-25 00:00:00 2021-10-25 00:00:00 Telephone Ca [facility] 1..840.114 350.1.13.10 4.2.7.2.686 [id number] [facility] 2021-10-25 00:00:00 2021-10-25 00:00:00 Telephone Provider, Filippo Db Urgent Care [facility] 1.2.840.114 350.1.13.10 4.2.7.2.686 [id number] [facility] 2021-10-25 00:00:00 2021-10-25 00:00:00 Telephone Nurse, Filippo Db [facility] 1.2.840.114 350.1.13.10 4.2.7.2.686 [id number] [facility] 2021-10-24 10:15:00 2021-10-24 10:15:00 Outpatient ROMULO BROWNING [facility] [id number] [facility] 2021-10-24 10:15:00 2021-10-24 10:15:00 Outpatient ROMULO BROWNING [facility] [id number] [facility] 2021-10-11 09:30:00 2021-10-11 09:30:00 Outpatient ROMULO BROWNING [facility] [id number] [facility] 2021-10-10 13:30:00 2021-10-10 13:30:00 Outpatient PRASANNA LOOMIS [facility] [id number] [facility] 2021-10-10 13:30:00 2021-10-10 13:30:00 Outpatient PRASANNA LOOMIS [facility] [id number] [facility] 2021-10-10 13:30:00 2021-10-10 13:30:00 Outpatient PRASANNA LOOMIS [facility] [id number] [facility] 2021-10-10 13:30:00 2021-10-10 13:30:00 Outpatient PRASANNA LOOMIS [facility] [id number] [facility] 2021-10-10 13:30:00 2021-10-10 13:30:00 Outpatient PRASANNA LOOMIS [facility] [id number] [facility] 2021-10-10 13:30:00 2021-10-10 13:30:00 Outpatient Farzana PRASANNA VARGAS [facility] [id number] [facility] 2021-10-10 13:30:00 2021-10-10 13:30:00 Outpatient Farzana VARGAS PRASANNA [facility] [id number] [facility] 2021-10-05 00:00:00 2021-10-05 00:00:00 Patient Secure g Kendal Zamudio [facility] MED[facility] OFFICE BUILD[facility] 1.2.840.114 350.1.13.10 4.2.7.2.686 [id number] [facility] 2021-10-05 00:00:00 2021-10-05 00:00:00 Patient Secure g Kendal Zamudio [facility] MED[facility] OFFICE BUILDING 1.2.840.114 350.1.13.10 4.2.7.2.686 [id number] [facility] 2021-10-04 00:00:00 2021-10-04 00:00:00 Pre Visit Outreach Melia Rodriguez [place] 1.2.840.114 350.1.13.10 4.2.7.2.686 [id number] [facility] 2021-09-28 13:30:00 2021-09-28 13:45:00 Office Visit Desiree Mohr [facility] 1.2.840.114 350.1.13.10 4.2.7.2.686 [id number] [facility] 2021-09-28 13:30:00 2021-09-28 13:30:00 Outpatient DESIREE STONE [facility] [id number] [facility] 2021-09-28 13:30:00 2021-09-28 13:30:00 Outpatient R APURVAFIFI JonesINE [facility] [id number] [facility] 2021-09-28 00:00:00 2021-09-28 00:00:00 Patient Secure g Desiree Mohr [facility] 1..840.114 350.1.13.10 4.2.7.2.686 [id number] [facility] 2021-09-27 14:00:00 2021-09-27 14:00:00 Outpatient TETO BRANTLEY [facility] [id number] [facility] 2021-09-27 09:30:00 2021-09-27 09:30:00 Outpatient DANIA RICARDO [facility] [id number] [facility] 2021-09-27 09:30:00 2021-09-27 09:30:00 Outpatient R DANIA PENNINGTON [facility] [id number] [facility] 2021-09-27 09:30:00 2021-09-27 09:30:00 Outpatient R DANIA PENNINGTON [facility] [id number] [facility] 2021-09-26 10:45:00 2021-09-26 10:45:00 Outpatient R CRICKET TAYLOR [facility] [id number] [facility] 2021-09-26 10:45:00 2021-09-26 10:45:00 Outpatient R CRICKET TAYLOR [facility] [id number] [facility] 2021-09-26 00:00:00 2021-09-26 00:00:00 Patient Secure g VíctorRichelle cannonie [facility] 1..840.114 350.1.13.10 4.2.7.2.686 [id number] [id number] [facility] 2021-09-26 00:00:00 2021-09-26 00:00:00 Patient Secure Msg Víctorkassandra Ca [facility] 1.84.114 350.1.13.10 4.2.7.2.686 [id number] [id number] [facility] 2021-09-25 10:20:00 2021-09-25 11:10:42 Urgent Care Flaco Boyd Amanda [facility] 1.84.114 350.1.13.10 4.2.7.2.686 [id number] [facility] 2021-09-25 10:20:00 2021-09-25 11:10:42 [id number] 2021-09-25 10:20:00 2021-09-25 10:20:00 Outpatient R OLIVERFLACO [facility] [id number] [facility] 2021-09-25 10:00:00 2021-09-25 10:00:00 Outpatient R PRASANNA VARGAS [facility] [id number] [facility] 2021-09-25 00:00:00 2021-09-25 00:00:00 Telephone Flaco Boyd [facility] 1.84.114 350.1.13.10 4.2.7.2.686 [id number] [facility] 2021-09-25 00:00:00 2021-09-25 00:00:00 Patient Secure Msg Vargas Prasanna [facility] NAL BUILD[facility] 1.84.114 350.1.13.10 4.2.7.2.686 [id number] [facility] 2021-09-25 00:00:00 2021-09-25 00:00:00 Telephone Cricket Taylor [facility] 1.2.840.114 350.1.13.10 4.2.7.2.686 [id number] [facility] 2021-09-25 00:00:00 2021-09-25 00:00:00 Telephone Desiree Mohr Kassandra [facility] [place] 1.2.840.114 350.1.13.10 4.2.7.2.686 [id number] [facility] 2021-09-15 00:00:00 2021-09-15 00:00:00 Patient Secure Msg Kendal Zamudio [facility] MED[facility] OFFICE BUILDING 1.2840.114 350.1.13.10 4.2.7.2.686 [id number] [id number] [facility] 2021-09-15 00:00:00 2021-09-15 00:00:00 Patient Secure Msg Kendal Zamudio [facility] MED[facility] OFFICE BUILDING 1.2840.114 350.1.13.10 4.2.7.2.686 [id number] [id number] [facility] 2021-09-15 00:00:00 2021-09-15 00:00:00 Patient Secure Msg Kendal Zamudio [facility] MED[facility] OFF[facility] BUILDING 1.2840.114 350.1.13.10 4.2.7.2.686 [id number] [id number] [facility] 2021-09-14 00:00:00 2021-09-14 00:00:00 Patient Secure Msg Víctorkassandra Ca [facility] MEDICAL OFFICE BUILDING 1.2840.114 350.1.13.10 4.2.7.2.686 [id number] [facility] 2021-09-14 00:00:00 2021-09-14 00:00:00 Patient Secure Msg Doctor Unassigned, [place] [facility] 1.840.114 350.1.13.10 4.2.7.2.686 [id number] 044 [id number] [facility] 2021-09-12 10:30:00 2021-09-12 10:30:00 Outpatient DESIREE STONE [facility] [id number] [facility] 2021-09-12 10:30:00 2021-09-12 10:30:00 Outpatient DESIREE STONE [facility] [id number] [facility] 2021-09-12 00:00:00 2021-09-12 00:00:00 Patient Secure Msg Taj Dsouza [facility] 1.84.114 350.1.13.10 4.2.7.2.686 [id number] [facility] 2021-09-12 00:00:00 2021-09-12 00:00:00 Orders Only Doctor Unassigned, [place] [facility] 1.84114 350.1.13.10 4.2.7.2.686 [id number] [facility] 2021-09-12 00:00:00 2021-09-12 00:00:00 Patient Secure Msg Ca Martinez [facility] 1.840.114 350.1.13.10 4.2.7.2.686 [id number] [id number] [facility] 2021-09-05 00:00:00 2021-09-05 00:00:00 Patient Secure Msg Ca Martinez [facility] 1.84.114 350.1.13.10 4.2.7.2.686 [id number] [id number] [facility] 2021-09-05 00:00:00 2021-09-05 00:00:00 Patient Secure Msg Doctor Unassigned, [place] [facility] 1.2840.114 350.1.13.10 4.2.7.2.686 [id number] [facility] 2021-09-05 00:00:00 2021-09-05 00:00:00 Patient Secure Msg Doctor Unassigned, [place] [facility] 1.2840.114 350.1.13.10 4.2.7.2.686 [id number] [facility] 2021-09-04 00:00:00 2021-09-04 00:00:00 Patient Secure Msg Juan Ca [facility] MEDICAL OFFICE BUILDING 1.840.114 350.1.13.10 4.2.7.2.686 [id number] [id number] [facility] 2021-08-28 00:00:00 2021-08-28 00:00:00 Patient Secure Msg Harsh Charles [facility] 1.114 350.1.13.10 4.2.7.2.686 [id number] [facility] 2021-08-25 00:00:00 2021-08-25 00:00:00 Telephone Dania Pennington [facility] MED[facility] OFF[facility] BUILDING 1.114 350.1.13.10 4.2.7.2.686 [id number] [facility] 2021-08-25 00:00:00 2021-08-25 00:00:00 Patient Secure Msg Víctorkassandra Ca [facility] MED[facility] OFFICE BUILDING 1.2840.114 350.1.13.10 4.2.7.2.686 [id number] 044 [id number] [facility] 2021-08-24 00:00:00 2021-08-24 00:00:00 Telephone Ca [facility] 1.2.840.114 350.1.13.10 4.2.7.2.686 [id number] 044 [id number] [facility] 2021-08-24 00:00:00 2021-08-24 00:00:00 Patient Secure Msg Ca [facility] 1.2.840.114 350.1.13.10 4.2.7.2.686 [id number] 044 [id number] [facility] 2021-08-23 00:00:00 2021-08-23 00:00:00 Patient Secure Msg Ca Martinez [facility] MED[facility] OFF[facility] BUILD[facility] 1.2.840.114 350.1.13.10 4.2.7.2.686 [id number] [id number] [facility] 2021-08-23 00:00:00 2021-08-23 00:00:00 Telephone Ca Martinez [facility] MED[facility] OFF[facility] BUILD[facility] 1.2.840.114 350.1.13.10 4.2.7.2.686 [id number] 044 [id number] [facility] 2021-08-22 00:00:00 2021-08-22 00:00:00 Telephone Ca Martinez [facility] MEDICAL OFFICE BUILDING 1.2.840.114 350.1.13.10 4.2.7.2.686 [id number] 044 [id number] [facility] 2021-08-22 00:00:00 2021-08-22 00:00:00 Patient Secure Msg Hallie Wilkinson [facility] MEDICAL OFFICE BUILDING 1.2.840.114 350.1.13.10 4.2.7.2.686 [id number] 044 [id number] [facility] 2021-08-18 00:00:00 2021-08-18 00:00:00 Telephone Ca Martinez [facility] MEDICAL OFFICE BUILDING 1.2840.114 350.1.13.10 4.2.7.2.686 [id number] 044 [id number] [facility] 2021-08-17 09:00:00 2021-08-17 09:00:00 Outpatient DESIREE STONE [facility] [id number] [facility] 2021-08-17 09:00:00 2021-08-17 09:00:00 Outpatient DESIREE STONE [facility] [id number] [facility] 2021-08-17 00:00:00 2021-08-17 00:00:00 Patient Secure Msg Prasanna Vargas [facility] N[facility] BUILD[facility] 1.2840.114 350.1.13.10 4.2.7.2.686 [id number] [facility] 2021-08-17 00:00:00 2021-08-17 00:00:00 Patient Secure Msg Ca Martinez [facility] MED[facility] OFFICE BUILDING 1.2840.114 350.1.13.10 4.2.7.2.686 [id number] 044 [id number] [facility] 2021-08-17 00:00:00 2021-08-17 00:00:00 Patient Secure Msg Ca Martinez [facility] 1.2840.114 350.1.13.10 4.2.7.2.686 [id number] [id number] [facility] 2021-08-16 00:00:00 2021-08-16 00:00:00 Patient Secure Msg Ca Martinez [facility] MED[facility] OFF[facility] BUILD[facility] 1.2840.114 350.1.13.10 4.2.7.2.686 [id number] 044 [id number] [facility] 2021-08-16 00:00:00 2021-08-16 00:00:00 Patient Secure Msg Doctor Unassigned, [place] [facility] MED[facility] OFFICE BUILDING 1.2.840.114 350.1.13.10 4.2.7.2.686 [id number] [id number] [facility] 2021-08-16 00:00:00 2021-08-16 00:00:00 Patient Secure Msg Ca Martinez [facility] MEDICAL OFFICE BUILDING 1.2.840.114 350.1.13.10 4.2.7.2.686 [id number] 044 [id number] [facility] 2021-08-16 00:00:00 2021-08-16 00:00:00 Patient Secure Msg Ca Martinez [facility] MED[facility] OFFICE BUILDING 1.2.840.114 350.1.13.10 4.2.7.2.686 [id number] 044 [id number] [facility] 2021-08-15 15:30:00 2021-08-15 16:16:42 Office Visit Adán Kim [facility] MED[facility] OFFICE BUILDING 1.2.840.114 350.1.13.10 4.2.7.2.686 [id number] [facility] 2021-08-15 15:30:00 2021-08-15 16:16:42 Outpatient ADÁN DIEGO [facility] [id number] [facility] 2021-08-15 15:30:00 2021-08-15 15:30:00 Outpatient ADÁN DIEGO [facility] [id number] [facility] 2021-08-15 15:30:00 2021-08-15 15:30:00 Outpatient ADÁN DIEGO [facility] [id number] [facility] 2021-08-15 15:30:00 2021-08-15 15:30:00 Outpatient ADÁN DIEGO [facility] [id number] [facility] 2021-08-15 09:27:00 2021-08-15 12:26:00 Emergency MAURA DALE [facility] [id number] [facility] 2021-08-15 09:27:00 2021-08-15 12:26:00 Emergency Maura Cox Lee [facility] 1..840.114 350.1.13.10 4.2.7.2.686 [id number] [facility] 2021-08-15 09:27:00 2021-08-15 12:26:00 Emergency MAURA DALE [facility] [id number] [facility] 2021-08-15 00:00:00 2021-08-15 00:00:00 Patient Secure Msg Doctor Unassigned, [place] [facility] 1.2.840.114 350.1.13.10 4.2.7.2.686 [id number] [facility] 2021-08-14 13:25:00 2021-08-14 23:59:00 Outpatient CA ARAUZ [facility] [id number] [facility] 2021-08-14 13:25:00 2021-08-14 23:59:00 Outpatient CA ARAUZ [facility] [id number] [facility] 2021-08-14 13:25:00 2021-08-14 13:25:00 Outpatient CA ARAUZ [facility] [id number] [facility] 2021-08-14 12:19:07 2021-08-14 13:24:00 Outpatient CA ARAUZ [facility] [id number] [facility] 2021-08-14 12:19:07 2021-08-14 13:24:00 Outpatient CA ARAUZ [facility] [id number] [facility] 2021-08-14 12:30:00 2021-08-14 13:01:24 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 MEDICAL OFFICE BUILDING 1.284.114 350.1.13.10 4.2.7.2.686 [id number] [facility] 2021-08-14 12:30:00 2021-08-14 12:45:00 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 MEDICAL OFFICE BUILDING 1.84.114 350.1.13.10 4.2.7.2.686 [id number] [facility] 2021-08-14 11:30:00 2021-08-14 12:31:12 Office Visit Ca Martinez [facility] MEDICAL OFFICE BUILDING 1.84.114 350.1.13.10 4.2.7.2.686 [id number] [id number] [facility] 2021-08-14 11:30:00 2021-08-14 12:31:12 Outpatient Farzana MARTINEZ CA [facility] [id number] [facility] 2021-08-14 00:00:00 2021-08-14 00:00:00 Patient Secure g Juan [facility] 1.84.114 350.1.13.10 4.2.7.2.686 [id number] [facility] 2021-08-14 00:00:00 2021-08-14 00:00:00 Patient Secure g Richelle MartinezFormerly [facility] 1.284.114 350.1.13.10 4.2.7.2.686 [id number] [facility] 2021-08-09 14:45:00 2021-08-09 14:45:00 Outpatient R KIMADÁN [facility] [id number] [facility] 2021-08-09 00:00:00 2021-08-09 00:00:00 Telephone Ca Martinez [facility] 1..840.114 350.1.13.10 4.2.7.2.686 [id number] [facility] 2021-08-08 11:30:00 2021-08-08 23:59:00 Outpatient R CA MARTINEZ [facility] [id number] [facility] 2021-08-08 11:30:00 2021-08-08 23:59:00 Hospital Encounter Ca [facility] MEDICAL OFF[facility] BUILD[facility] 1..840.114 350.1.13.10 4.2.7.2.686 [id number] [facility] 2021-08-08 11:15:00 2021-08-08 11:15:00 Outpatient R CA MARTINEZ [facility] [id number] [facility] 2021-08-08 11:00:00 2021-08-08 11:00:00 Outpatient R CA MARTINEZ [facility] [id number] [facility] 2021-08-08 00:00:00 2021-08-08 00:00:00 Patient Secure Msg Doctor Unassigned, [place] [facility] 1..840.114 350.1.13.10 4.2.7.2.686 [id number] [facility] 2021-08-07 09:30:00 2021-08-07 10:23:21 Office Visit Ca Martinez [facility] MEDICAL OFFICE BUILDING 1..840.114 350.1.13.10 4.2.7.2.686 [id number] [facility] 2021-08-07 09:30:00 2021-08-07 10:23:21 Outpatient R CA MARTINEZ [facility] [id number] [facility] 2021-08-07 09:30:00 2021-08-07 09:30:00 Outpatient R CA MARTINEZ [facility] [id number] [facility] 2021-08-07 00:00:00 2021-08-07 00:00:00 Patient Secure Msg Ca Martinez [facility] MEDICAL OFFICE BUILDING 1..840.114 350.1.13.10 4.2.7.2.686 [id number] [facility] 2021-08-07 00:00:00 2021-08-07 00:00:00 Patient Secure Msg Ca Martinez [facility] MEDICAL OFFICE BUILDING 1..840.114 350.1.13.10 4.2.7.2.686 [id number] [facility] 2021-08-07 00:00:00 2021-08-07 00:00:00 Patient Secure Msg Desiree Mohr [facility] 1..840.114 350.1.13.10 4.2.7.2.686 [id number] [facility] 2021-08-04 10:00:00 2021-08-04 10:00:00 Outpatient R PETRA RENO [facility] [id number] [facility] 2021-08-04 00:00:00 2021-08-04 00:00:00 Patient Secure Msg Richelle MartinezFormerly [facility] TALYA?[facility] MEDICAL OFFICE BUILDING 1..840.114 350.1.13.10 4.2.7.2.686 [id number] [id number] [facility] 2021-08-03 11:00:00 2021-08-03 12:48:43 Office Visit Juan Diaz [facility]ung[facility]. 1..840.114 350.1.13.10 4.2.7.2.686 [id number] [facility] 2021-08-03 11:00:00 2021-08-03 12:48:43 Outpatient JUAN YANG [facility] [id number] [facility] 2021-08-03 11:00:00 2021-08-03 11:00:00 Outpatient Farzana DIAZ [facility] [id number] [facility] 2021-08-03 00:00:00 2021-08-03 00:00:00 Patient Secure Desiree Mohr [facility] 1..840.114 350.1.13.10 4.2.7.2.686 [id number] [facility] 2021-08-02 00:00:00 2021-08-02 00:00:00 Telephone Ca Martinez [facility] MEDICAL OFFICE BUILDING 1.2.840.114 350.1.13.10 4.2.7.2.686 [id number] [facility] 2021-07-21 08:00:00 2021-07-21 08:52:53 Outpatient DARRION QUIROZ HOWARD [facility] [id number] [facility] 2021-07-17 11:30:00 2021-07-17 11:30:00 Outpatient CA ARAUZ [facility] [id number] [facility] 2021-07-17 00:00:00 2021-07-17 00:00:00 Patient Secure Juan Ca [facility] MEDICAL OFFICE BUILDING 1.2.840.114 350.1.13.10 4.2.7.2.686 [id number] [facility] 2021-06-19 00:00:00 2021-06-19 00:00:00 Telephone Richelle Martinezie [facility] 1..840.114 350.1.13.10 4.2.7.2.686 [id number] [facility] 2021-06-09 00:00:00 2021-06-09 00:00:00 Telephone Reji Garcia [facility] 1..840.114 350.1.13.10 4.2.7.2.686 [id number] [facility] 2021-06-06 11:15:00 2021-06-06 11:15:00 Outpatient R TETO CARNES [facility] [id number] [facility] 2021-06-06 11:15:00 2021-06-06 11:15:00 Outpatient R DEYVI [facility] [id number] [facility] 2021-06-02 15:45:00 2021-06-02 15:45:00 Outpatient R CLAUDETTE EVANS [facility] [id number] [facility] 2021-05-31 10:00:00 2021-05-31 10:46:31 Outpatient R JUANRICHELLEIE [facility] [id number] [facility] 2021-05-31 10:00:00 2021-05-31 10:46:31 Office Visit JuanCa [facility] 1..840.114 350.1.13.10 4.2.7.2.686 [id number] [facility] 2021-05-31 10:00:00 2021-05-31 10:46:31 Outpatient R JUAN CA [facility] [id number] [facility] 2021-05-31 00:00:00 2021-05-31 00:00:00 Orders Only Doctor Unassigned, [place] [facility] 1..840.114 350.1.13.10 4.2.7.2.686 [id number] [facility] 2021-05-26 00:00:00 2021-05-26 00:00:00 Telephone Skylar Groves [facility] 1.2.840.114 350.1.13.10 4.2.7.2.686 [id number] [facility] 2021-05-26 00:00:00 2021-05-26 00:00:00 Patient Secure Msg Prasanna Vargas [facility] 1.2.840.114 350.1.13.10 4.2.7.2.686 [id number] [facility] 2021-05-25 14:00:00 2021-05-25 14:30:00 Telemedici ne Visit Skylar Groves [facility] 1.2.840.114 350.1.13.10 4.2.7.2.686 [id number] [facility] 2021-05-25 14:00:00 2021-05-25 14:00:00 Outpatient R MARIA D GROVESLIE [facility] [id number] [facility] 2021-05-25 14:00:00 2021-05-25 14:00:00 Outpatient R BRODIESKYLAR [facility] [id number] [facility] 2021-05-25 00:00:00 2021-05-25 00:00:00 Patient Secure Msg Skylar Groves [facility] 1.2.840.114 350.1.13.10 4.2.7.2.686 [id number] [facility] 2021-05-25 00:00:00 2021-05-25 00:00:00 Patient Secure Msg Skylar Groves [facility] 1.2.840.114 350.1.13.10 4.2.7.2.686 [id number] [facility] 2021-05-24 00:00:00 2021-05-24 00:00:00 Telephone Delroy Reenazohra SergePilar [facility] [place] [place] BUILDING 1.2.840.114 350.1.13.10 4.2.7.2.686 [id number] [facility] 2021-05-24 00:00:00 2021-05-24 00:00:00 Patient Secure Msg Rad SerraHPilar [facility] [place] [place] BU[facility]ING 1.2.840.114 350.1.13.10 4.2.7.2.686 [id number] [facility] [facility] 2021-05-24 00:00:00 2021-05-24 00:00:00 Patient Secure Msg Claudette Evans [facility] MEDICAL OFFICE BUILDING 1..840.114 350.1.13.10 4.2.7.2.686 [id number] [facility] 2021-05-23 10:00:00 2021-05-23 10:00:00 Outpatient R [facility] [id number] [facility] 2021-05-23 10:00:00 2021-05-23 10:00:00 Outpatient R [facility] [id number] [facility] 2021-05-23 00:00:00 2021-05-23 00:00:00 Patient Secure Msg Claudette Evans [facility] MEDICAL OFFICE BUILDING 1.2.840.114 350.1.13.10 4.2.7.2.686 [id number] 044 [id number] [facility] 2021-05-16 09:00:2021-05-16 09:00:00 Outpatient TETO BRANTLEY [facility] [id number] [facility] 2021-05-12 00:00:00 2021-05-12 00:00:00 Orders Only Doctor Unassigned, [place] [facility] 1.2.840.114 350.1.13.10 4.2.7.2.686 [id number] [facility] 2021-05-10 13:00:00 2021-05-10 13:00:00 [facility] [id number] 2021-05-10 13:00:00 2021-05-10 13:00:00 [facility] [id number] [facility] 2021-05-09 00:00:00 2021-05-09 00:00:00 Telephone Prasanna [facility]argas [facility] 1.2.840.114 350.1.13.10 4.2.7.2.686 [id number] [facility] 2021-05-09 00:00:00 2021-05-09 00:00:00 Patient Secure Rad Wells [facility] 1.2.840.114 350.1.13.10 4.2.7.2.686 [id number] [facility] 2021-05-08 16:00:00 2021-05-08 16:00:00 Outpatient JE CRABTREE [facility] [id number] [facility] 2021-05-08 16:00:00 2021-05-08 16:00:00 Outpatient JAN CRABTREETHIA [facility] [id number] [facility] 2021-05-08 00:00:00 2021-05-08 00:00:00 Patient Secure Msg Serra Sendzohra [facility] 1.2.840.114 350.1.13.10 4.2.7.2.686 [id number] [facility] 2021-05-08 00:00:00 2021-05-08 00:00:00 Patient Secure Msg Reena Serrazohra Kaycee.Pilar [facility] NAL BUILDING 1.2840.114 350.1.13.10 4.2.7.2.686 [id number] 059 [id number] [facility] 2021-05-04 00:00:00 2021-05-04 00:00:00 Patient Secure Msg Rad Serra.[facility] BUILD[facility] 1.284.114 350.1.13.10 4.2.7.2.686 [id number] 059 [id number] [facility] 2021-05-04 00:00:00 2021-05-04 00:00:00 Patient Secure Msg Radha Reji [facility] [place] BUILDING 1.84.114 350.1.13.10 4.2.7.2.686 [id number] 059 [id number] [facility] 2021-05-03 11:15:36 2021-05-03 23:59:00 Outpatient R REJI GARCIA [facility] [id number] [facility] 2021-05-03 11:15:36 2021-05-03 23:59:00 Hospital Encounter Radha Reji [facility] [place] BUILDING 1.2840.114 350.1.13.10 4.2.7.2.686 [id number] [facility] 2021-05-03 00:00:00 2021-05-03 00:00:00 Telephone [facility] 1.2.840.114 350.1.13.10 4.2.7.2.686 [id number] 044 [id number] [facility] 2021-05-02 00:00:00 2021-05-02 00:00:00 Telephone Rad SerraHPilar [facility] [place] BUILDING 1.2.840.114 350.1.13.10 4.2.7.2.686 [id number] 059 [id number] [facility] 2021-05-02 00:00:00 2021-05-02 00:00:00 Patient Secure Msg Cristina, Carmelinadiful A [facility] MEDICAL OFFICE BUILDING 1.2.840.114 350.1.13.10 4.2.7.2.686 [id number] 044 [id number] [facility] 2021-05-02 00:00:00 2021-05-02 00:00:00 Telephone DaviessCarmelina ibrhaimdiful A [facility] MED[facility] OFF[facility] BU[facility] 1..840.114 350.1.13.10 4.2.7.2.686 [id number] 044 [id number] [facility] 2021-05-02 00:00:00 2021-05-02 00:00:00 Patient Secure Msg SerraRad.H. [facility] [place] BUILDING 1..840.114 350.1.13.10 4.2.7.2.686 [id number] 059 [id number] [facility] 2021-05-02 00:00:00 2021-05-02 00:00:00 Patient Secure Msg Cristina, Carmelinadiful A [facility] MED[facility] OFF[facility] BUILDING 1.2.840.114 350.1.13.10 4.2.7.2.686 [id number] 044 [id number] [facility] 2021-04-28 00:00:00 2021-04-28 00:00:00 Patient Secure Msg Daviess, Carmelinadiful A [facility] MED[facility] OFFICE BUILDING 1.840.114 350.1.13.10 4.2.7.2.686 [id number] 044 [id number] [facility] 2021-04-27 14:24:00 2021-04-27 15:49:00 Emergency X [facility] [id number] [facility] 2021-04-27 14:24:00 2021-04-27 15:49:00 Emergency Maggie Hamilton [facility] 1.840.114 350.1.13.10 4.2.7.2.686 [id number] [facility] 2021-04-27 11:15:00 2021-04-27 11:30:00 Laboratory Only Only, Ang Db Test Unknown, Attending Thony Johnson [facility] MEDICAL OFFICE BUILDING 1.840.114 350.1.13.10 4.2.7.2.686 [id number] [facility] 2021-04-27 11:15:00 2021-04-27 11:15:00 Outpatient THONY LUIS [facility] [id number] [facility] 2021-04-27 00:00:00 2021-04-27 00:00:00 Orders Only Doctor Unassigned, [place] [facility] 1.840.114 350.1.13.10 4.2.7.2.686 [id number] [facility] 2021-04-20 15:00:00 2021-04-20 15:00:00 Outpatient SCOTT RENEE [facility] [id number] [facility] 2021-04-13 00:00:00 2021-04-13 00:00:00 Patient Secure Daviess, Claudette A [facility] MEDICAL OFFICE BUILDING 1.840.114 350.1.13.10 4.2.7.2.686 [id number] 044 [id number] [facility] 2021-04-12 00:00:00 2021-04-12 00:00:00 Telephone Claudette Evans [facility] 1.2.840.114 350.1.13.10 4.2.7.2.686 [id number] 044 [id number] [facility] 2021-03-27 00:00:00 2021-03-27 00:00:00 Telephone Prasanna Vargas [facility] 1..840.114 350.1.13.10 4.2.7.2.686 [id number] [facility] 2021-03-24 00:00:00 2021-03-24 00:00:00 Patient Secure Msg Doctor Unassigned, [place] [facility] 1.840.114 350.1.13.10 4.2.7.2.686 [id number] [facility] 2021-03-23 13:30:00 2021-03-23 13:30:00 Outpatient PINO AGUIAR [facility] [id number] [facility] 2021-03-23 13:30:00 2021-03-23 13:30:00 Outpatient PINO AGUIAR [facility] [id number] [facility] 2021-03-22 09:20:00 2021-03-22 09:20:00 Outpatient R ADITYA MEEKS STRAHIL [facility] [id number] [facility] 2021-03-22 09:20:00 2021-03-22 09:20:00 Outpatient R ADITYA MEEKS STRAHIL [facility] [id number] [facility] 2021-03-20 00:00:00 2021-03-20 00:00:00 Outpatient CLAUDETTE CEDILLO [facility] [id number] [facility] 2021-03-18 00:00:00 2021-03-18 00:00:00 Case Management Claudette Evans [facility] 1..840.114 350.1.13.10 4.2.7.2.686 [id number] 044 [id number] [facility] 2021-03-16 11:16:07 2021-03-16 11:31:07 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 MEDICAL OFFICE BUILDING 1..840.114 350.1.13.10 4.2.7.2.686 [id number] [facility] 2021-03-16 11:30:00 2021-03-16 11:30:00 Outpatient R CLAUDETTE EVANS [facility] [id number] [facility] 2021-03-16 11:00:00 2021-03-16 11:14:45 Outpatient R CLAUDETTE EVANS [facility] [id number] [facility] 2021-03-16 10:00:58 2021-03-16 11:14:45 Office Visit Claudette Evans [facility] MEDICAL OFFICE BUILDING 1..840.114 350.1.13.10 4.2.7.2.686 [id number] [id number] [facility] 2021-03-16 00:00:00 2021-03-16 00:00:00 Patient Secure Msg Claudette Evans [facility] MEDICAL OFFICE BUILDING 1..840.114 350.1.13.10 4.2.7.2.686 [id number] 044 [id number] [facility] 2021-03-02 16:15:00 2021-03-02 16:15:00 Outpatient R CLAUDETTE EVANS [facility] [id number] [facility] 2021-02-28 18:30:00 2021-02-28 18:30:00 Outpatient R MITCHELLWILLIE [facility] [id number] [facility] 2021-02-28 00:00:00 2021-02-28 00:00:00 Telephone Branden Evansful A [facility] Talya?[facility] Medical Office Building 1.840.114 350.1.13.10 4.2.7.2.686 [id number] [facility] 2021-02-27 09:00:00 2021-02-27 09:00:00 Outpatient AMELIA OBRIEN [facility] [id number] [facility] 2021-02-23 00:00:00 2021-02-23 00:00:00 Telephone Branden Evansful A [facility] Talya?[facility] Medical Office Building 1.84.114 350.1.13.10 4.2.7.2.686 [id number] 044 [id number] [facility] 2021-02-10 18:12:00 2021-02-10 23:39:00 Emergency Kaycee Méndez [facility] 1.114 350.1.13.10 4.2.7.2.686 [id number] [facility] 2021-02-10 00:00:00 2021-02-10 00:00:00 Patient Secure Msg Carmelina Evansdiful [facility] 1.84.114 350.1.13.10 4.2.7.2.686 [id number] 044 [id number] [facility] 2021-02-10 00:00:00 2021-02-10 00:00:00 Patient Secure Msg Carmelina Evansdiful [facility] MEDICAL OFFICE BUILDING 1.284.114 350.1.13.10 4.2.7.2.686 [id number] 044 [id number] [facility] 2021-02-10 00:00:00 2021-02-10 00:00:00 Patient Secure Claudette Hinds [facility] MEDICAL OFFICE BUILDING 1.2.840.114 350.1.13.10 4.2.7.2.686 [id number] 044 [id number] [facility] 2021-02-10 00:00:00 2021-02-10 00:00:00 Patient Secure Claudette Hinds 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, Ang - [place] Claudette Evans [facility] Medical Office Building 1.2.840.114 350.1.13.10 4.2.7.2.686 [id number] [facility] 2021-02-09 12:23:13 2021-02-09 13:47:12 Office Visit Cluadette Evans [facility] Maurice Babin?[facility] Medical Office Building 1.2.840.114 350.1.13.10 4.2.7.2.686 [id number] 044 [id number] [facility] 2021-02-09 13:00:00 2021-02-09 13:00:00 Outpatient R CLAUDETTE EVANS [facility] [id number] [facility] 2021-02-09 00:00:00 2021-02-09 00:00:00 Patient Secure g Doctor Unassigned, [place] [facility] 1..840.114 350.1.13.10 4.2.7.2.686 [id number] [facility] 2021-02-08 10:20:00 2021-02-08 10:20:00 Outpatient R ANN-MARIEGERARDOADITYA EUGENE STRASCEz [facility] [id number] [facility] 2021-02-07 00:00:00 2021-02-07 00:00:00 [facility] BUILD[facility] 1..840.114 350.1.13.10 4.2.7.2.686 [id number] [facility] 2021-02-02 10:30:00 2021-02-02 10:30:00 Outpatient R BRODIESKYLAR [facility] [id number] [facility] 2021-02-02 00:00:00 2021-02-02 00:00:00 Telephone Claudette Evans [facility] Office Building 1..840.114 350.1.13.10 4.2.7.2.686 [id number] [facility] 2021-02-01 08:30:00 2021-02-01 08:30:00 Outpatient R BRODIESKYLAR [facility] [id number] [facility] 2021-01-31 18:44:04 2021-01-31 19:41:26 Urgent Care Oliver Flaco [facility] Medical Office Building 1..840.114 350.1.13.10 4.2.7.2.686 [id number] [facility] 2021-01-31 19:00:00 2021-01-31 19:00:00 Outpatient R FLACO BOYD [facility] [id number] [facility] 2021-01-31 00:00:00 2021-01-31 00:00:00 Telephone DaviessClaudette ibrahim [facility] Talya[facility] 1..840.114 350.1.13.10 4.2.7.2.686 [id number] 044 [id number] [facility] 2021-01-31 00:00:00 2021-01-31 00:00:00 Patient Secure Msg Claudette Evans [facility] MEDICAL OFFICE BUILDING 1..840.114 350.1.13.10 4.2.7.2.686 [id number] 044 [id number] [facility] 2021-01-30 00:00:00 2021-01-30 00:00:00 Telephone Rad Serra [facility] Building 1..840.114 350.1.13.10 4.2.7.2.686 [id number] [id number] [facility] 2021-01-30 00:00:00 2021-01-30 00:00:00 Patient Secure Msg Claudette Evans [facility] OFF[facility] BUILDING ONE 1..840.114 350.1.13.10 4.2.7.2.686 [id number] 044 [id number] [facility] 2021-01-26 14:00:00 2021-01-26 14:00:00 Outpatient R RAD SERRA [facility] [id number] [facility] 2021-01-26 00:00:00 2021-01-26 00:00:00 Patient Secure Msg Skylar Groves Kassandra [facility] MEDICAL OFFICE BUILDING 1..840.114 350.1.13.10 4.2.7.2.686 [id number] 044 [id number] [facility] 2021-01-25 15:00:00 2021-01-25 15:00:00 Outpatient R [facility] [id number] [facility] 2021-01-21 00:00:00 2021-01-21 00:00:00 Patient Secure Msg Skylar Groves [facility] MEDICAL OFFICE BUILDING 1.84.114 350.1.13.10 4.2.7.2.686 [id number] 044 [id number] [facility] 2021-01-20 16:51:22 2021-01-20 17:12:41 Telemedici ne Visit Skylar Groves [facility] Medical Office Building 1.840.114 350.1.13.10 4.2.7.2.686 [id number] [facility] 2021-01-20 16:30:00 2021-01-20 16:30:00 Outpatient R SKYLAR GROVES [facility] [id number] [facility] 2021-01-19 10:15:00 2021-01-19 10:15:00 Outpatient R RICKY KAYLEY [facility] [id number] [facility] 2021-01-14 00:00:00 2021-01-14 00:00:00 Case Management Kassandra Benavides [facility] 1.84.114 350.1.13.10 4.2.7.2.686 [id number] [facility] 2021-01-14 00:00:00 2021-01-14 00:00:00 Patient Secure Msg Doctor Unassigned, [place] [facility] 1.84.114 350.1.13.10 4.2.7.2.686 [id number] [facility] 2021-01-12 16:10:00 2021-01-12 19:45:00 Emergency Hany Matthews [facility] 1.2.840.114 350.1.13.10 4.2.7.2.686 [id number] [facility] 2021-01-12 15:20:00 2021-01-12 15:20:00 Outpatient R WILLIE MEDRANO [facility] [id number] [facility] 2021-01-12 14:46:57 2021-01-12 15:06:57 Urgent Care Juan Josekylescott, Thony Medrano, [facility] Medical Office Building 1.2.840.114 350.1.13.10 4.2.7.2.686 [id number] [facility] 2020-12-26 15:30:00 2020-12-26 16:13:32 Outpatient R RAD SERRA [facility] [id number] [facility] 2020-12-26 15:30:00 2020-12-26 16:13:32 Office Visit Rad Serra [facility] 1.2.840.114 350.1.13.10 4.2.7.2.686 [id number] [facility] 2020-12-26 15:00:32 2020-12-26 16:13:32 Office Visit Rad Serra [facility] 1.2.840.114 350.1.13.10 4.2.7.2.686 [id number] [facility] 2020-12-26 15:30:00 2020-12-26 15:30:00 Outpatient R RAD SERRA [facility] [id number] [facility] 2020-11-29 00:00:00 2020-11-29 00:00:00 Patient Secure Msg Rad Serra [facility] NAL BUILDING 1.2.840.114 350.1.13.10 4.2.7.2.686 [id number] [facility] 2020-11-22 11:00:00 2020-11-22 11:00:00 Outpatient R DESIREE MOHR [facility] [id number] [facility] 2020-11-10 18:42:46 2020-11-10 19:53:43 Urgent Care Dennis [facility] Office Building One 1.2840.114 350.1.13.10 4.2.7.2.686 [id number] 2020-11-10 19:00:00 2020-11-10 19:00:00 Outpatient R [facility] [id number] [facility] 2020-10-31 18:52:00 2020-10-31 22:15:00 Emergency Kaycee Méndez [facility] 1.2840.114 350.1.13.10 4.2.7.2.686 [id number] 2020-10-31 19:00:00 2020-10-31 19:00:00 Outpatient R BEBA KAUR [facility] [id number] [facility] 2020-10-31 00:00:00 2020-10-31 00:00:00 Orders Only Doctor Unassigned, [place] [facility] 1.2840.114 350.1.13.10 4.2.7.2.686 [id number] 2020-10-20 14:02:00 2020-10-20 17:13:00 Emergency Kaycee Méndez [facility] 1.2840.114 350.1.13.10 4.2.7.2.686 [id number] 2020-10-18 00:00:00 2020-10-18 00:00:00 Patient Secure Msg Prasanna Vargas [facility] BUILD[facility] 1.2.840.114 350.1.13.10 4.2.7.2.686 [id number] [facility] 2020-10-14 10:00:00 2020-10-14 23:59:00 Hospital Encounter Prasanna Vargas [facility] 1.2.840.114 350.1.13.10 4.2.7.2.686 [id number] 2020-10-14 13:30:00 2020-10-14 13:30:00 Outpatient DESIREE STONE [facility] [id number] [facility] 2020-10-11 00:00:00 2020-10-11 00:00:00 Patient Secure Msg Prasanna Vargas [facility] [place] BUILDING 1.2.840.114 350.1.13.10 4.2.7.2.686 [id number] [facility] 2020-10-11 00:00:00 2020-10-11 00:00:00 Patient Secure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 reference range: 10*3/?L. The reference range was not used to interpret this result as normal/abnormal. GRAN MAT (NEUT) % (test code = 770-8) 46.9 % IMM GRAN % (test code = 3535300816) 0.40 % LYMPH % (test code = 736-9) 43.7 % MONO % (test code = 5905-5) 6.9 % EOS % (test code = 713-8) 1.6 % BASO % (test code = 706-2) 0.5 % GRAN MAT x10^3(ANC) (test code = 0980937203) 2.59 10*3/uL 1.88-7.09 IMM GRAN x10^3 (test code = 8515544312) 0.00-0.06 LYMPH x10^3 (test code = 731-0) 2.41 10*3/uL 1.32-3.29 MONO x10^3 (test code = 742-7) 0.38 10*3/uL 0.33-0.92 EOS x10^3 (test code = 711-2) 0.09 10*3/uL 0.03-0.39 BASO x10^3 (test code = 704-7) 0.03 10*3/uL 0.01-0.07 Lab Interpretation (test code = 06064-0) [facility]normal [facility] [id number] 19:57:39EXAM: CT ABDOMEN PELVIS WO CONTRAST 03/10/2024 [...] TISSUES: No suspicious lytic or sclerotic bony lesions.[facility] WO [id number] 16:06:58EXAM: CT ABDOMEN PELVIS WO CONTRAST HISTORY: [...] TISSUES: No suspicious lytic or sclerotic bony lesions.[facility]. METABOLIC PANEL ([id number])2024-03-04 13:38:51* Test Item Value Reference Range Interpretation Comme nts NA (test code = 0446354754) 138 mmol/L 135-145 K (test code = 3293312564) 4.3 mmol/L 3.5-5.0 CL (test code = 2743868079) 105 mmol/L 98-108 CO2 TOTAL (test code = 0992841681) 23 mmol/L 23-31 AGAP (test code = 3059397286) 10 2-16 BUN (test code = 9605768773) 10 mg/dL 7-23 GLUCOSE (test code = 1795031581) 90 mg/dL 70-110 CREATININE (test code = 2160-0) 0.72 mg/dL 0.50-1.04 TOTAL BILI (test code = 1964736068) 0.6 mg/dL 0.1-1.1 CALCIUM (test code = 2401147747) 9.6 mg/dL 8.6-10.6 T PROTEIN (test code = 2448860111) 7.2 g/dL 6.3-8.2 ALBUMIN (test code = 9678744523) 4.5 g/dL 3.5-5.0 ALK PHOS (test code = 6373964142) 56 U/L 34-122 ALTv (test code = 1742-6) 40 U/L 5-35 H AST(SGOT) (test code = 9601487734) 31 U/L 13-40 eGFR (test code = 76599-9) 116.2 mL/min/1.73m2 CKD-EPI eGFR (2020). Assuming creatinine has been stable day-to-day for at least three months, the eGFR indicates Category G1 (>= 90 mL/min/1.73 m2) Lab Interpretation (test code = 84275-0) Abnormal [facility] PasoLIPASE2024-10-23 13:38:51* Test Item Value Reference Range Interpretation Comme nts LIPASE (test code = 9997700972) 97 U/L 0-220 Lab Interpretation (test cod e = 17103-9) Normal [facility] PasoCB WITH [id number] 13:31:11* Test Item Value Reference Range Interpretation [...] 34.4 g/dL 31.6-35.1 RDW-SD (test code = 33015-1) 41.2 fL 39.0-49.9 RDW-CV (test code = 788-0) 13.1 % 12.0-15.5 PLT (test code = 777-3) 364 166-358 H MPV (test code = 01970-5) 9.3 fL 9.5-12.9 L NRBC/100 WBC (test code = 6413080124) 0.0 0.0-10.0 NRBC x10^3 (test code = 6182115493) See_Comment [Automated messa ge] The system which generated this result transmitted reference range: 10*3/?L. The reference range was not used to interpret this result as normal/abnormal. GRAN MAT (NEUT) % (test code = 770-8) 80.0 % IMM GRAN % (test code = 9807926752) 0.30 % LYMPH % (test code = 736-9) 14.2 % MONO % (test code = 5905-5) 3.8 % EOS % (test code = 713-8) 1.4 % BASO % (test code = 706-2) 0.3 % GRAN MAT x10^3(ANC) (test code = 5121516260) 7.18 10*3/uL 1.88-7.09 H IMM GRAN x10^3 (test code = 5103767051) 0.03 10*3/uL 0.00-0.06 LYMPH x10^3 (test code = 731-0) 1.28 10*3/uL 1.32-3.29 L MONO x10^3 (test code = 742-7) 0.34 10*3/uL 0.33-0.92 EOS x10^3 (test code = 711-2) 0.13 10*3/uL 0.03-0.39 BASO x10^3 (test code = 704-7) 0.03 10*3/uL 0.01-0.07 Lab Interpretation (test code = 91297-2) Abnormal [facility] PasoPOCT [id number] 13:14:00* Test Item Value Reference Range Interpretation Comme nts POCT PREG (test code = 1605) Negative On board controls acceptable with C Line (test code = 3574) Yes POCT PREG LOT # (test code = 3575) [id number] POCT PREG TEST DATE ( test code = 3576) 02/14/2025 Lab Interpretation (test cod e = 10267-6) Normal [facility] PasoENDOSCOPY PROCEDURE [id number] 14:46:53Ordered by an unspecified provider.[facility] Tissue Transglutaminase (TTG) [id number] 19:09:23* Test Item Value Reference Range Interpretation Comme [facility] Tissue Transglutaminase (tTG) Ab, IgA Interpretation (test code = 51068-6) Negative Negative Tissue Transglutaminase (tTG) Ab, IgA (test code = 7697878115) 1.1 U/mL <=7.0 WESLEY (test code = WESLEY) < 7 U/mL ? Negative7 - 10 U/mL ?Equivocal> 10 U/mL ?Positive In case of equivocal results, we recommend to retest the patient after 8 -12 weeks. Lab Interpretation (test code = 10787-1) Normal [facility] PasoTissue Transglutaminase (TTG) [id number] 19:09:23* Test Item Value Reference Range Interpretation Comme nts Tissue Transglutaminase (tTG) Ab, IgA Interpretation (test code = 92058-2) Negative Negative Tissue Transglutaminase (tTG) Ab, IgA (test code = 9957189499) 1.1 U/mL <=7.0 WESLEY (test code = WESLEY) < 7 U/mL ? Negative7 - 10 U/mL ?Equivocal> 10 U/mL ?Positive In case of equivocal results, we recommend to retest the patient after 8 -12 weeks. Lab Interpretation (test code = 70572-6) Normal [facility] PasoDeamidated Gliadin [id number] 19:08:56* Test Item Value Reference Range Interpretation Comme nts Deamidated Gliadin Peptide (DGP) Ab, IgG Interpretation (test code = 49961-5) Negative Negative Deamidated Gliadin Peptide (DGP) Ab, IgG (test code = 8109878212) <=7.0 WESLEY (test code = WESLEY) < 7 U/mL ? Negative7 - 10 U/mL ?Equivocal> 10 U/mL ?Positive In case of equivocal results, we recommend to retest the patient after 8 -12 weeks. Lab Interpretation (test code = 29764-4) Normal [facility] PasoDeamidated Gliadin [id number] 19:08:56* Test Item Value Reference Range Interpretation Comme nts Deamidated Gliadin Peptide (DGP) Ab, IgG Interpretation (test code = 05413-5) Negative Negative Deamidated Gliadin Peptide (DGP) Ab, IgG (test code = 8987303300) <=7.0 WESLEY (test code = WESLEY) < 7 U/mL ? Negative7 - 10 U/mL ?Equivocal> 10 U/mL ?Positive In case of equivocal results, we recommend to retest the patient after 8 -12 weeks. Lab Interpretation (test code = 02062-5) Normal [facility] PasoDeamidated Gliadin [id number] 19:08:55* Test Item Value Reference Range Interpretation Comme nts Deamidated Gliadin Peptide (DGP) Ab, IgA Interpretation (test code = 87827-3) Negative Negative Deamidated Gliadin Peptide (DGP) Ab, IgA (test code = 3390337552) 0.8 U/mL <=7.0 WESLEY (test code = WESLEY) < 7 U/mL ? Negative7 - 10 U/mL ?Equivocal> 10 U/mL ?Positive In case of equivocal results, we recommend to retest the patient after 8 -12 weeks. Lab Interpretation (test code = 51106-8) Normal [facility] PasoDeamidated Gliadin [id number] 19:08:55* Test Item Value Reference Range Interpretation Comme nts Deamidated Gliadin Peptide (DGP) Ab, IgA Interpretation (test code = 57365-5) Negative Negative Deamidated Gliadin Peptide (DGP) Ab, IgA (test code = 1631608618) 0.8 U/mL <=7.0 WESLEY (test code = WESLEY) < 7 U/mL ? Negative7 - 10 U/mL ?Equivocal> 10 U/mL ?Positive In case of equivocal results, we recommend to retest the patient after 8 -12 weeks. Lab Interpretation (test code = 06039-6) Normal [facility] PasoXR [id number] 21:07:52EXAM: XR KUB HISTORY: 29 years-old Female; Provided indication: Checking for bowelobstruction or con stipation . TECHNIQUE: Frontal view of the abdomen and pelvis COMPARISON: [id number] 21:07:52EXAM: XR KUB HISTORY: 29 years-old Female; Provided indication: Checking for bowelobstruction or constipation . TECHNIQUE: Frontal view of the abdomen and pelvis COMPARISON: MR [facility]AST [id number] 21:07:42EXAM: MRI ABDOMEN with and without CONTRAST [...] cholecystectomy. There is a tiny focus of A7dtluhpxnbtlvku seen only on the T2 fat-suppressed axial [...] No lymphadenopathy. VESSELS:Unremarkable. BONES AND SOFT TISSUES: Unremarkable.[facility] PasoMR ABDOMEN W WO CONTRAST [id number] 21:07:42EXAM: MRI ABDOMEN with and without CONTRAST [...] cholecystectomy. There is a tiny focus of W4kdtswgylmdvjdt seen only on the T2 fat-suppressed axial [...] No lymphadenopathy. VESSELS:Unremarkable. BONES AND SOFT TISSUES: Unremarkable.[facility] GLUCOSE (AUTOMATED) 2024-02-24 01:35:26* Test Item Value Reference Range Interpretation Comme [facility] POCT GLU (test code = 0564987341) 95 mg/dL 70-110 Lab Interpretation (test cod e = 81535-4) Normal [facility] GLUCOSE (AUTOMATED)2024-02-24 01:35:26* Test Item Value Reference Range Interpretation Comme [facility] POCT GLU (test code = 1604485984) 95 mg/dL 70-110 Lab Interpretation (test cod e = 85420-0) Normal [facility] PasoHcv Cspwkggo4173-79-64 21:28:55* Test Item Value Reference Range Interpretation Comme [facility] HCV Ab (test code = 04586-2) Negative HCV Semi-Quantitative (test code = 57788-8) 0.01 [facility] PasoHcv Uujdmlqa7460-49-04 21:28:55* Test Item Value Reference Range Interpretation Comme [facility] HCV Ab (test code = 54492-8) Negative HCV Semi-Quantitative (test code = 39508-7) 0.01 [facility] PasoC-Reactive Iiednbe7394-09-09 18:59:19* Test Item Value Reference Range Interpretation Comme [facility] CRP (test code = 0217280460) 0.3 mg/dL <=0.8 Lab Interpretation (test cod e = 49573-5) Normal [facility] PasoC-Reactive Swcpygx2082-94-17 18:59:19* Test Item Value Reference Range Interpretation Comme [facility] CRP (test code = 9828529556) 0.3 mg/dL <=0.8 Lab Interpretation (test cod e = 19719-4) Normal [facility] PasoHepatitis B Surface Dtgdibhv5193-63-51 16:37:53* Test Item Value Reference Range Interpretation Comme [facility] HBsAB (test code = 0884404795) Negative HBsAb Semi-Quantitative (test code = 9704238734) 0.00 mIU/mL WESLEY (test code = WESLEY) Interpretation: ?Hepatitis B Surface Antibody ? Negative - Patient is considered to be not immune to infection with HBV. ? ? Positive - Anti-HBs detected at greater than or equal to 12 mIU/mL. ?Patient is considered to be immune to infection with HBV. ? [facility] PasoHeuofl health [facility] hospitaltis B Surface Rqqpedth7053-51-97 16:37:53* Test Item Value Reference Range Interpretation Comme [facility] HBsAB (test code = 8844426039) Negative HBsAb Semi-Quantitative (test code = 3730665863) 0.00 mIU/mL WESLEY (test code = WESLEY) Interpretation: ?Hepatitis B Surface Antibody ? Negative - Patient is considered to be not immune to infection with HBV. ? ? Positive - Anti-HBs detected at greater than or equal to 12 mIU/mL. ?Patient is considered to be immune to infection with HBV. ? [facility] PasoHI 1/2 Ag-Ab with Uzsyti1310-59-00 16:37:47* Test Item Value Reference Range Interpretation Comme [facility] HIV Semi-quantitative (test code = 79303-9) 0.09 Negative WESLEY (test code = WESLEY) Non-reactive for HIV-1 antigen and HIV-1/HIV-2 antibodies. ?No laboratory evidence of HIV infection. ?Repeat in 2-4 weeks if acute HIV infection is suspected. [facility] B Surface Gyfsken1584-77-45 16:37:47 * Test Item Value Reference Range Interpretation Comme nts HBsAg Semi-Quantitative (maeve t code = 5195-3) 0.12 Negative [facility] PasoHIV 1/2 Ag-Ab with Wehakg8858-04-68 16:37:47* Test Item Value Reference Range Interpretation Comme nts HIV Semi-quantitative (test code = 48250-1) 0.09 Negative WESLEY (test code = WESLEY) Non-reactive for HIV-1 antigen and HIV-1/HIV-2 antibodies. ?No laboratory evidence of HIV infection. ?Repeat in 2-4 weeks if acute HIV infection is suspected. [facility] PasoH[facility] [place] B Surface Btbsguc0917-46-74 16:37:47 * Test Item Value Reference Range Interpretation Comme nts HBsAg Semi-Quantitative (maeve t code = 5195-3) 0.12 Negative [facility] PasoHbc Antibody (IgM & IgG)2024-02-23 16:37:42* Test Item Value Reference Range Interpretation Comme nts HBC (test code = 0820030474) Negative HBC Semi-Quantitative (test code = 2820681153) 3.51 [facility] PasoHbc Antibody (IgM & IgG)2024-02-23 16:37:42* Test Item Value Reference Range Interpretation Comme nts HBC (test code = 7070556267) Negative HBC Semi-Quantitative (test code = 5898035070) 3.51 [facility] PasoSedimentation Zasn4283-06-54 13:48:13* Test Item Value Reference Range Interpretation Comme nts ESR (test code = 95658-5) 23 2-30 Lab Interpretation (test cod e = 12942-1) Normal [facility] PasoSedimentation Zwsh3463-98-96 13:48:13* Test Item Value Reference Range Interpretation Comme nts ESR (test code = 08100-2) 23 2-30 Lab Interpretation (test cod e = 15039-3) Normal [facility] PasoHepatic Function Panel (98253) (ALB,T.PRO,BILI T,BU/BC,ALT,AST,ALK PHOS)2024-02-22 19:51:55* Test Item Value Reference Range Interpretation Comme nts TOTAL BILI (test code = 2649896467) 1.0 mg/dL 0.1-1.1 BILI UNCON (test code = 8758595857) 0.4 mg/dL 0.1-1.1 BILI CONJ (test code = 9226444613) 0.0 mg/dL 0.0-0.3 T PROTEIN (test code = 8601725707) 8.5 g/dL 6.3-8.2 H ALBUMIN (test code = 4593292166) 4.9 g/dL 3.5-5.0 ALK PHOS (test code = 8306174740) 87 U/L 34-122 Slight hemolysis ALTv (test code = 1742-6) 77 U/L 5-35 H AST(SGOT) (test code = 6771936073) 57 U/L 13-40 H Slight hemolysis Lab Interpretation (test code = 47852-2) Abnormal [facility] PasoHepatic Function Panel (27736) (ALB,T.PRO,BILI T,BU/BC,ALT,AST,ALK PHOS)2024-02-22 19:51:55* Test Item Value Reference Range Interpretation Comme nts TOTAL BILI (test code = 1077286098) 1.0 mg/dL 0.1-1.1 BILI UNCON (test code = 2013444663) 0.4 mg/dL 0.1-1.1 BILI CONJ (test code = 9811422016) 0.0 mg/dL 0.0-0.3 T PROTEIN (test code = 4428397299) 8.5 g/dL 6.3-8.2 H ALBUMIN (test code = 3347484668) 4.9 g/dL 3.5-5.0 ALK PHOS (test code = 5628903824) 87 U/L 34-122 Slight hemolysis ALTv (test code = 1742-6) 77 U/L 5-35 H AST(SGOT) (test code = 2749880266) 57 U/L 13-40 H Slight hemolysis Lab Interpretation (test code = 88257-0) Abnormal [facility] PasoXR CHEST 2 [id number] 18:19:37ORDERING PROVIDER: ?COLIN ELMORE MORRICAL HISTORY: Hematemesis TECHNIQUE: Frontal and lateral views of the Chest. [facility] [id number] 18:19:37ORDERING PROVIDER: ?COLIN ELMORE MORRICAL HISTORY: Hematemesis TECHNIQUE: Frontal and lateral views of the Chest. [facility] [id number] 17:50:15ORDERING PROVIDER: LENCHOANASTASIYA VARMAEz MORRICAL HISTORY: N/v/diarrhea worsening since cholecystectomy EXAM: [...] lesions. ?There is normal corticalthickness, contour and echogenicity.[facility] ABDOMEN KURULGS4790-35-73 17:50:15ORDERING PROVIDER: COLIN ELMORE MORRICAL HISTORY: N/v/diarrhea [...] lesions. ?There is normal corticalthickness, contour and echogenicity.[facility] [id number] 15:52:12* Test Item Value Reference Range Interpretation Comme nts TROPONIN I (test code = 6028698819) 0.006 ng/mL <=0.034 WESLEY (test code = [...] of biotin. Lab Interpretation (test code = 37454-4) Normal [facility] [id number] 15:52:12* Test Item Value Reference Range Interpretation Comme nts TROPONIN I (test code = 1893848383) 0.006 ng/mL <=0.034 WESLEY (test code = [...] of biotin. Lab Interpretation (test code = 22701-4) Normal [facility] PasoPREGNANCY TEST, [id number] 15:52:07* Test Item Value Reference Range Interpretation Comme nts PREG SERUM (test code = 4977307232) Negative WESLEY (test code = WESLEY) Less than 10 IU/L. ?If low titer or ectopic is suspected, resubmit specimen in 48-72 hours. [facility] PasoPREGNANCY TEST, [id number] 15:52:07* Test Item Value Reference Range Interpretation Comme nts PREG SERUM (test code = 4300180225) Negative WESLEY (test code = WESLEY) Less than 10 IU/L. ?If low titer or ectopic is suspected, resubmit specimen in 48-72 hours. [facility] PasoLIPASE2024-10-12 15:40:04* Test Item Value Reference Range Interpretation Comme nts LIPASE (test code = 9590880524) 69 U/L 0-220 Lab Interpretation (test cod e = 60488-2) Normal [facility] PasoLIPASE2024-10-12 15:40:04* Test Item Value Reference Range Interpretation Comme nts LIPASE (test code = 7830994909) 69 U/L 0-220 Lab Interpretation (test cod e = 87147-6) Normal [facility] PasoCOM. METABOLIC PANEL (18535)2024-02-22 15:40:03* Test Item Value Reference Range Interpretation Comme nts NA (test code = 1502777938) 137 mmol/L 135-145 K (test code = 3578572995) 3.9 mmol/L 3.5-5.0 Slight hemolysis CL (test code = 9904636872) 102 mmol/L 98-108 CO2 TOTAL (test code = 2051148043) 24 mmol/L 23-31 AGAP (test code = 2071404036) 11 2-16 BUN (test code = 5423491102) 9 mg/dL 7-23 Slight hemolysis GLUCOSE (test code = 9510128984) 94 mg/dL 70-110 CREATININE (test code = 2160-0) 0.70 mg/dL 0.50-1.04 TOTAL BILI (test code = 1747197390) 1.0 mg/dL 0.1-1.1 CALCIUM (test code = 1753344366) 9.3 mg/dL 8.6-10.6 T PROTEIN (test code = 5773222932) 8.4 g/dL 6.3-8.2 H ALBUMIN (test code = 3386958286) 5.0 g/dL 3.5-5.0 ALK PHOS (test code = 5370219551) 79 U/L 34-122 Slight hemolysis ALTv (test code = 1742-6) 74 U/L 5-35 H AST(SGOT) (test code = 0158252808) 57 U/L 13-40 H Slight hemolysis eGFR (test code = 47859-4) 120.2 mL/min/1.73m2 CKD-EPI eGFR (2020). Assuming creatinine has been stable day-to-day for at least three months, the eGFR indicates Category G1 (>= 90 mL/min/1.73 m2) Lab Interpretation (test code = 32050-3) Abnormal [facility]. METABOLIC PANEL (58089)2024-02-22 15:40:03* Test Item Value Reference Range Interpretation Comme nts NA (test code = 0427299451) 137 mmol/L 135-145 K (test code = 1298328549) 3.9 mmol/L 3.5-5.0 Slight hemolysis CL (test code = 5743768609) 102 mmol/L 98-108 CO2 TOTAL (test code = 4512324869) 24 mmol/L 23-31 AGAP (test code = 3088513498) 11 2-16 BUN (test code = 4791455111) 9 mg/dL 7-23 Slight hemolysis GLUCOSE (test code = 4853242998) 94 mg/dL 70-110 CREATININE (test code = 2160-0) 0.70 mg/dL 0.50-1.04 TOTAL BILI (test code = 7149574896) 1.0 mg/dL 0.1-1.1 CALCIUM (test code = 1048940397) 9.3 mg/dL 8.6-10.6 T PROTEIN (test code = 8371197940) 8.4 g/dL 6.3-8.2 H ALBUMIN (test code = 1857043827) 5.0 g/dL 3.5-5.0 ALK PHOS (test code = 3135933499) 79 U/L 34-122 Slight hemolysis ALTv (test code = 1742-6) 74 U/L 5-35 H AST(SGOT) (test code = 0816383124) 57 U/L 13-40 H Slight hemolysis eGFR (test code = 17580-7) 120.2 mL/min/1.73m2 CKD-EPI eGFR (2020). Assuming creatinine has been stable day-to-day for at least three months, the eGFR indicates Category G1 (>= 90 mL/min/1.73 m2) Lab Interpretation (test code = 89517-3) Abnormal [facility] WITH [id number] 15:35:41* Test Item Value Reference Range Interpretation [...] 34.3 g/dL 31.6-35.1 RDW-SD (test code = 81938-4) 41.3 fL 39.0-49.9 RDW-CV (test code = 788-0) 13.2 % 12.0-15.5 PLT (test code = 777-3) 329 166-358 MPV (test code = 87160-4) 9.9 fL 9.5-12.9 NRBC/100 WBC (test code = 0740956162) 0.0 0.0-10.0 NRBC x10^3 (test code = 0466048617) See_Comment [Automated messa ge] The system which generated this result transmitted reference range: 10*3/?L. The reference range was not used to interpret this result as normal/abnormal. GRAN MAT (NEUT) % (test code = 770-8) 66.5 % IMM GRAN % (test code = 8975513964) 0.30 % LYMPH % (test code = 736-9) 26.8 % MONO % (test code = 5905-5) 3.5 % EOS % (test code = 713-8) 2.3 % BASO % (test code = 706-2) 0.6 % GRAN MAT x10^3(ANC) (test code = 7293436744) 5.71 10*3/uL 1.88-7.09 IMM GRAN x10^3 (test code = 9259089818) 0.03 10*3/uL 0.00-0.06 LYMPH x10^3 (test code = 731-0) 2.30 10*3/uL 1.32-3.29 MONO x10^3 (test code = 742-7) 0.30 10*3/uL 0.33-0.92 L EOS x10^3 (test code = 711-2) 0.20 10*3/uL 0.03-0.39 BASO x10^3 (test code = 704-7) 0.05 10*3/uL 0.01-0.07 Lab Interpretation (test code = 38547-9) Abnormal [facility] WITH [id number] 15:35:41* Test Item Value Reference Range Interpretation [...] 34.3 g/dL 31.6-35.1 RDW-SD (test code = 97364-4) 41.3 fL 39.0-49.9 RDW-CV (test code = 788-0) 13.2 % 12.0-15.5 PLT (test code = 777-3) 329 166-358 MPV (test code = 46749-0) 9.9 fL 9.5-12.9 NRBC/100 WBC (test code = 8592369168) 0.0 0.0-10.0 NRBC x10^3 (test code = 6583158391) See_Comment [Automated messa ge] The system which generated this result transmitted reference range: 10*3/?L. The reference range was not used to interpret this result as normal/abnormal. GRAN MAT (NEUT) % (test code = 770-8) 66.5 % IMM GRAN % (test code = 6414890435) 0.30 % LYMPH % (test code = 736-9) 26.8 % MONO % (test code = 5905-5) 3.5 % EOS % (test code = 713-8) 2.3 % BASO % (test code = 706-2) 0.6 % GRAN MAT x10^3(ANC) (test code = 2807023089) 5.71 10*3/uL 1.88-7.09 IMM GRAN x10^3 (test code = 9652902477) 0.03 10*3/uL 0.00-0.06 LYMPH x10^3 (test code = 731-0) 2.30 10*3/uL 1.32-3.29 MONO x10^3 (test code = 742-7) 0.30 10*3/uL 0.33-0.92 L EOS x10^3 (test code = 711-2) 0.20 10*3/uL 0.03-0.39 BASO x10^3 (test code = 704-7) 0.05 10*3/uL 0.01-0.07 Lab Interpretation (test code = 76328-5) Abnormal [facility] PasoCOMP. METABOLIC PANEL (60158)2023-05-19 17:55:27* Test Item Value Reference Range Interpretation Comme nts NA (test code = 9322632898) 138 mmol/L 135-145 K (test code = 2226823364) 3.8 mmol/L 3.5-5.0 CL (test code = 5784959878) 107 mmol/L 98-108 CO2 TOTAL (test code = 5430317089) 21 mmol/L 23-31 L AGAP (test code = 5521868232) 10 2-16 BUN (test code = 9609831242) 8 mg/dL 7-23 GLUCOSE (test code = 5493556396) 89 mg/dL 70-110 CREATININE (test code = 5031684140) 0.69 mg/dL 0.50-1.04 TOTAL BILI (test code = 6194641913) 0.7 mg/dL 0.1-1.1 CALCIUM (test code = 2452838640) 8.3 mg/dL 8.6-10.6 L T PROTEIN (test code = 9675618298) 7.3 g/dL 6.3-8.2 ALBUMIN (test code = 0191361501) 4.1 g/dL 3.5-5.0 ALK PHOS (test code = 7294798882) 107 U/L 34-122 ALTv (test code = 1742-6) 75 U/L 5-35 H AST(SGOT) (test code = 7447507359) 42 U/L 13-40 H eGFR (test code = 83618-3) 121.4 mL/min/1.73m2 CKD-EPI eGFR (2020). Assuming creatinine has been stable day-to-day for at least three months, the eGFR indicates Category G1 (>= 90 mL/min/1.73 m2) Lab Interpretation (test code = 65771-3) Abnormal [facility] Pas[facility]IPASE2024-01-07 16:39:24* Test Item Value Reference Range Interpretation Comme nts LIPASE (test code = 1837023583) 40 U/L 0-220 Lab Interpretation (test cod e = 20835-1) Normal [facility] PELVIS W [id number] 16:27:28EXAM: CT ABDOMEN PELVIS W CONTRAST HISTORY: [...] hypodensity isseen within the right gluteal soft tissue.[facility] CBC WITH [id number] 16:14:18* Test Item Value Reference Range Interpretation Comme nts WBC (test code = 6690-2) 6.32 See_Comment [Automated [employer]] The system which generated this result transmitted reference range: 4.30 - 11.10 10*3/?L. The reference range was not used to interpret this result as normal/abnormal. RBC (test code = 789-8) 4.61 See_Comment [Automated [employer]] The system which generated this result transmitted [...] 34.1 g/dL 31.6-35.1 RDW-SD (test code = 65449-3) 42.0 fL 39.0-49.9 RDW-CV (test code = 788-0) 13.0 % 12.0-15.5 PLT (test code = 777-3) 369 See_Comment H [Automated [employer]] The system which generated this result transmitted reference range: 166 - 358 10*3/?L. The reference range was not used to interpret this result as normal/abnormal. MPV (test code = 91407-7) 9.9 fL 9.5-12.9 NRBC/100 WBC (test code = 8433424780) 0.0 See_Comment [Automated me ssage] The system which generated this result transmitted reference range: 0.0 - 10.0 /100 WBCs. The reference range was not used to interpret this result as normal/abnormal. NRBC x10^3 (test code = [id number]) See_Comment [Automated messa ge] The system which generated this result transmitted reference range: 10*3/?L. The reference range was not used to interpret this result as normal/abnormal. GRAN MAT (NEUT) % (test code = 770-8) 64.8 % IMM GRAN % (test code = 3630206249) 0.50 % LYMPH % (test code = 736-9) 25.3 % MONO % (test code = 5905-5) 4.1 % EOS % (test code = 713-8) 4.7 % BASO % (test code = 706-2) 0.6 % GRAN MAT x10^3(ANC) (test code = 0564872276) 4.09 10*3/uL 1.88-7.09 IMM GRAN x10^3 (test code = 4305700174) 0.03 10*3/uL 0.00-0.06 LYMPH x10^3 (test code = 731-0) 1.60 10*3/uL 1.32-3.29 MONO x10^3 (test code = 742-7) 0.26 10*3/uL 0.33-0.92 L EOS x10^3 (test code = 711-2) 0.30 10*3/uL 0.03-0.39 BASO x10^3 (test code = 704-7) 0.04 10*3/uL 0.01-0.07 Lab Interpretation (test code = 53045-0) [id number] 15:31:00* Test Item Value Reference Range Interpretation Comme nts POCT PREG (test code = 1605) Negative On board controls acceptable with C Line (test code = 3574) Yes POCT PREG LOT # (test code = 3575) [id number] POCT PREG TEST DATE ( test code = 3576) 2024-07-21 Lab Interpretation (test cod e = 59954-2) Normal [facility] WITH [id number] 04:28:47* Test Item Value Reference Range Interpretation [...] 34.0 g/dL 31.6-35.1 RDW-SD (test code = 58056-0) 40.3 fL 39.0-49.9 RDW-CV (test code = 788-0) 13.1 % 12.0-15.5 PLT (test code = 777-3) 307 See_Comment [Automated messa ge] The system which generated this result transmitted reference range: 166 - 358 10*3/?L. The reference range was not used to interpret this result as normal/abnormal. MPV (test code = 96403-8) 11.0 fL 9.5-12.9 NRBC/100 WBC (test code = 3607642076) 0.0 See_Comment [Automated PadMatcher ssage] The system which generated this result transmitted reference range: 0.0 - 10.0 /100 WBCs. The reference range was not used to interpret this result as normal/abnormal. NRBC x10^3 (test code = 3361658679) See_Comment [Automated messa ge] The system which generated this result transmitted reference range: 10*3/?L. The reference range was not used to interpret this result as normal/abnormal. GRAN MAT (NEUT) % (test code = 770-8) 52.0 % IMM GRAN % (test code = 6751435975) 0.20 % LYMPH % (test code = 736-9) 38.0 % MONO % (test code = 5905-5) 4.6 % EOS % (test code = 713-8) 4.6 % BASO % (test code = 706-2) 0.6 % GRAN MAT x10^3(ANC) (test code = 1892458985) 2.84 10*3/uL 1.88-7.09 IMM GRAN x10^3 (test code = 7925124137) 0.00-0.06 LYMPH x10^3 (test code = 731-0) 2.07 10*3/uL 1.32-3.29 MONO x10^3 (test code = 742-7) 0.25 10*3/uL 0.33-0.92 L EOS x10^3 (test code = 711-2) 0.25 10*3/uL 0.03-0.39 BASO x10^3 (test code = 704-7) 0.03 10*3/uL 0.01-0.07 Lab Interpretation (test code = 71983-0) [facility] ([id number])2023-01-12 04:12:43* Test Item Value Reference Range Interpretation Comme nts NA (test code = 2129404995) 137 mmol/L 135-145 K (test code = 4808774195) 3.4 mmol/L 3.5-5.0 L CL (test code = 6684029560) 104 mmol/L 98-108 CO2 TOTAL (test code = 0539016055) 24 mmol/L 23-31 AGAP (test code = 3299368109) 9 2-16 BUN (test code = 1291782507) 2 mg/dL 7-23 L GLUCOSE (test code = 6978783222) 92 mg/dL 70-110 CREATININE (test code = 2815967367) 0.80 mg/dL 0.50-1.04 TOTAL BILI (test code = 2062539544) 0.4 mg/dL 0.1-1.1 CALCIUM (test code = 5089478943) 8.4 mg/dL 8.6-10.6 L T PROTEIN (test code = 9298185830) 6.3 g/dL 6.3-8.2 ALBUMIN (test code = 2438458078) 3.7 g/dL 3.5-5.0 ALK PHOS (test code = 4441902832) 87 U/L 34-122 ALTv (test code = 1742-6) 27 U/L 5-35 AST(SGOT) (test code = 0512403174) 33 U/L 13-40 eGFR (test code = 2789242127) 86.0 mL/min/1.73m2 WESLEY (test code = WESLEY) [...] imaging tests). Lab Interpretation (test code = 78954-6) Abnormal [facility]. METABOLIC PANEL (84089)2023-01-12 04:12:43* Test Item Value Reference Range Interpretation Comme nts NA (test code = 1031518319) 137 mmol/L 135-145 K (test code = 5272489028) 3.4 mmol/L 3.5-5.0 L CL (test code = 7019404563) 104 mmol/L 98-108 CO2 TOTAL (test code = 1721831054) 24 mmol/L 23-31 AGAP (test code = 9903933383) 9 2-16 BUN (test code = 5404833160) 2 mg/dL 7-23 L GLUCOSE (test code = 4571299866) 92 mg/dL 70-110 CREATININE (test code = 3296228851) 0.80 mg/dL 0.50-1.04 TOTAL BILI (test code = 4620392077) 0.4 mg/dL 0.1-1.1 CALCIUM (test code = 1482403289) 8.4 mg/dL 8.6-10.6 L T PROTEIN (test code = 5620561240) 6.3 g/dL 6.3-8.2 ALBUMIN (test code = 1225383255) 3.7 g/dL 3.5-5.0 ALK PHOS (test code = 9332079386) 87 U/L 34-122 ALTv (test code = 1742-6) 27 U/L 5-35 AST(SGOT) (test code = 2501151836) 33 U/L 13-40 eGFR (test code = 5852823973) 86.0 mL/min/1.73m2 WESLEY (test code = WESLEY) [...] imaging tests). Lab Interpretation (test code = 33480-5) [facility] 04:07:04 BETA HCG<2.39Non- female and male patients: <5 mIU/mL01/11/2023 11:07 PM [facility] Gestational Age ?Range (mIU/mL) 1-10 ?Weeks ?83-49283400-71 Weeks ?81978-93624214-51 Weeks ?0163-98791431-68 Weeks ?1531-324222 Biotin has been reported to cause a negative bias, interpret results relative to patient's use of biotin. Gestational Age ?Range (mIU/mL) 1-10 ?Weeks ?46-14588312-28 Weeks ?16662-32278994-66 Weeks ?0257-29833903-96 Weeks?1531-704986 Biotin has been reported to cause a negative bias, interpret results relative to patient's use of biotin. Gestational Age ?Range (mIU/mL) 1-10 ?Weeks ?66-87278504-47 Weeks ?40091-29227776-54 Weeks ?8528-28329624-95 Weeks ?1531-834416 Biotin has been reported to cause a negative bias, interpretresults relative to patient's use of biotin.[facility]12 04:07:04BETA HCG<2.39Non- female and male patients: <5 mIU/mL01/11/2023 11:07 PM [facility] Gestational Age ?Range (mIU/mL) 1-10 ?Weeks ?05-80447029-51 Weeks ?60724-90155169-10 Weeks ?6663-65423753-42 Weeks ?1531-211924 Biotin has been reported to cause a negative bias, interpret results relative topatient's use of biotin. Gestational Age ?Range (mIU/mL) 1-10 ?Weeks ?22-78012448-44 Weeks ?14577-29538831-46 Weeks ?8008-12619572-02 Weeks?1531-144062 Biotin has been reported to cause a negative bias, interpret results relative to patient's use of biotin. Gestational Age ?Range (mIU/mL) 1-10 ?Weeks ?45-83598501-42 Weeks ?59216-74224578-38 Weeks ?3812-11674525-72 Weeks ?1531-215673 Biotin has been reported to cause a negative bias, interpretresults relative to patient's use of biotin.[facility] 2023-01-12 03:22:58* Test Item Value Reference Range Interpretation Comme nts LIPASE (test code = 6598052514) 41 U/L 0-220 Lab Interpretation (test cod e = 51947-9) Normal [facility]2023-09-02 03:22:58* Test Item Value Reference Range Interpretation Comme nts LIPASE (test code = 3014689155) 41 U/L 0-220 Lab Interpretation (test cod e = 34364-3) Normal [facility] [id number] 03:02:00* Test Item Value Reference Range Interpretation Comme nts POCT PREG (test code = 1605) Negative On board controls acceptable with C Line (test code = 3574) Yes POCT PREG LOT # (test code = 3575) [id number] POCT PREG TEST DATE ( test code = 3576) 05/15/2024 Lab Interpretation (test cod e = 39185-5) Normal [facility] [id number] 03:02:00* Test Item Value Reference Range Interpretation Comme nts POCT PREG (test code = 1605) Negative On board controls acceptable with C Line (test code = 3574) Yes POCT PREG LOT # (test code = 3575) [id number] POCT PREG TEST DATE ( test code = 3576) 05/15/2024 Lab Interpretation (test cod e = 03277-5) Normal [facility], [id number] 00:23:34* Test Item Value Reference Range Interpretation Comme nts PREG SERUM (test code = 9948693953) Negative WESLEY (test code = WESLEY) Less than 10 IU/L. ?If low titer or ectopic is suspected, resubmit specimen in 48-72 hours. [facility]. METABOLIC PANEL (75553)2022-07-31 23:58:12* Test Item Value Reference Range Interpretation Comme nts NA (test code = 9386447562) 140 mmol/L 135-145 K (test code = 0683514368) 3.6 mmol/L 3.5-5.0 CL (test code = 8293336208) 106 mmol/L 98-108 CO2 TOTAL (test code = 4612271781) 21 mmol/L 23-31 L AGAP (test code = 7837058028) 13 2-16 BUN (test code = 9957630139) 8 mg/dL 7-23 GLUCOSE (test code = 7233217050) 90 mg/dL 70-110 CREATININE (test code = 9775629449) 0.90 mg/dL 0.50-1.04 TOTAL BILI (test code = 9385830934) 0.5 mg/dL 0.1-1.1 CALCIUM (test code = 4328880176) 9.0 mg/dL 8.6-10.6 T PROTEIN (test code = 7023340908) 7.8 g/dL 6.3-8.2 ALBUMIN (test code = 2570223346) 4.6 g/dL 3.5-5.0 ALK PHOS (test code = 8481904308) 63 U/L 34-122 ALTv (test code = 1742-6) 23 U/L 5-35 AST(SGOT) (test code = 3891467076) 27 U/L 13-40 eGFR (test code = 3099281789) 75.1 mL/min/1.73m2 WESLEY (test code = WESLEY) [...] imaging tests). Lab Interpretation (test code = 00016-1) [facility]normal [facility] 23:57:32* Test Item Value Reference Range Interpretation Comme nts LIPASE (test code = 3118771211) 55 U/L 0-220 Lab Interpretation (test cod e = 02466-7) Normal [facility] WITH [id number] 23:47:31* Test Item Value Reference Range Interpretation Comme nts WBC (test code = 6690-2) 5.64 See_Comment [Automated [employer] ge] The system which generated this result [...] 32.6 g/dL 31.6-35.1 RDW-SD (test code = 75852-8) 42.5 fL 39.0-49.9 RDW-CV (test code = 788-0) 13.0 % 12.0-15.5 PLT (test code = 777-3) 339 See_Comment [Automated messa ge] The system which generated this result transmitted reference range: 166 - 358 10*3/?L. The reference range was not used to interpret this result as normal/abnormal. MPV (test code = 16910-6) 9.4 fL 9.5-12.9 L NRBC/100 WBC (test code = 0795889558) 0.0 See_Comment [Automated PadMatcher ssage] The system which generated this result transmitted reference range: 0.0 - 10.0 /100 WBCs. The reference range was not used to interpret this result as normal/abnormal. NRBC x10^3 (test code = 8076923637) See_Comment [Automated messa ge] The system which generated this result transmitted reference range: 10*3/?L. The reference range was not used to interpret this result as normal/abnormal. GRAN MAT (NEUT) % (test code = 770-8) 51.2 % IMM GRAN % (test code = 4790969746) 0.20 % LYMPH % (test code = 736-9) 36.5 % MONO % (test code = 5905-5) 5.7 % EOS % (test code = 713-8) 5.9 % BASO % (test code = 706-2) 0.5 % GRAN MAT x10^3(ANC) (test code = 7294268549) 2.89 10*3/uL 1.88-7.09 IMM GRAN x10^3 (test code = 8681805423) 0.00-0.06 LYMPH x10^3 (test code = 731-0) 2.06 10*3/uL 1.32-3.29 MONO x10^3 (test code = 742-7) 0.32 10*3/uL 0.33-0.92 L EOS x10^3 (test code = 711-2) 0.33 10*3/uL 0.03-0.39 BASO x10^3 (test code = 704-7) 0.03 10*3/uL 0.01-0.07 Lab Interpretation (test code = 09087-6) [facility] [id number] 16:14:38* Test Item Value Reference Range Interpretation Comme nts POCT Molecular Strep (test c ode = 93970-0) Negative Negative Lab Interpretation (test cod e = 15031-1) Normal [facility]. METABOLIC PANEL (03888)2022-05-05 19:35:37* Test Item Value Reference Range Interpretation Comme nts NA (test code = 1212526516) 139 mmol/L 135-145 K (test code = 9214709266) 4.4 mmol/L 3.5-5.0 CL (test code = 5678101365) 104 mmol/L 98-108 CO2 TOTAL (test code = 7359426478) 22 mmol/L 23-31 L AGAP (test code = 7468756283) 2-16 BUN (test code = 7624694034) 11 mg/dL 7-23 GLUCOSE (test code = 2407811364) 95 mg/dL 70-110 CREATININE (test code = 0702283976) 0.71 mg/dL 0.50-1.04 TOTAL BILI (test code = 0885604324) 0.4 mg/dL 0.1-1.1 CALCIUM (test code = 5666117850) 9.1 mg/dL 8.6-10.6 T PROTEIN (test code = 9889126855) 7.9 g/dL 6.3-8.2 ALBUMIN (test code = 0114745796) 4.7 g/dL 3.5-5.0 ALK PHOS (test code = 4076537420) 114 U/L 34-122 ALTv (test code = 1742-6) 21 U/L 5-35 AST(SGOT) (test code = 6601314660) 21 U/L 13-40 eGFR (test code = 3243596404) mL/min/1.73m2 WESLEY (test code = WESLEY) Association [...] imaging tests). Lab Interpretation (test code = 37407-1) Abnormal [facility] WITH [id number] 19:25:37* Test Item Value Reference Range Interpretation Comme nts WBC (test code = 6690-2) See_Comment [Automated [employer] ge] The system which generated this result transmitted reference range: 4.30 - 11.10 10*3/?L. The reference range was not used to interpret this result as normal/abnormal. RBC (test code = 789-8) See_Comment [Automated [employer] ge] The system which generated this result [...] 32.9 g/dL 31.6-35.1 RDW-SD (test code = 49122-6) 41.7 fL 39.0-49.9 RDW-CV (test code = 788-0) 12.7 % 12.0-15.5 PLT (test code = 777-3) See_Comment H [Automated [employer] ge] The system which generated this result transmitted reference range: 166 - 358 10*3/?L. The reference range was not used to interpret this result as normal/abnormal. MPV (test code = 16361-7) 8.8 fL 9.5-12.9 L NRBC/100 WBC (test code = 5267624879) See_Comment [Automated me ssage] The system which generated this result transmitted reference range: 0.0 - 10.0 /100 WBCs. The reference range was not used to interpret this result as normal/abnormal. NRBC x10^3 (test code = 5573194164) See_Comment [Automated messa ge] The system which generated this result transmitted reference range: 10*3/?L. The reference range was not used to interpret this result as normal/abnormal. GRAN MAT (NEUT) % (test code = 770-8) 56.1 % IMM GRAN % (test code = 5493517732) 0.40 % LYMPH % (test code = 736-9) 29.9 % MONO % (test code = 5905-5) 5.4 % EOS % (test code = 713-8) 7.8 % BASO % (test code = 706-2) 0.4 % GRAN MAT x10^3(ANC) (test code = 4511162512) 3.75 10*3/uL 1.88-7.09 IMM GRAN x10^3 (test code = 2672837322) 0.03 10*3/uL 0.00-0.06 LYMPH x10^3 (test code = 731-0) 2.00 10*3/uL 1.32-3.29 MONO x10^3 (test code = 742-7) 0.36 10*3/uL 0.33-0.92 EOS x10^3 (test code = 711-2) 0.52 10*3/uL 0.03-0.39 H BASO x10^3 (test code = 704-7) 0.03 10*3/uL 0.01-0.07 Lab Interpretation (test code = 88257-2) [facility] [id number] 19:00:00* Test Item Value Reference Range Interpretation Comme nts POCT PREG (test code = 1605) negative On board controls acceptable with C Line (test code = 3574) present POCT PREG LOT # (test code = 3575) [id number] POCT PREG TEST DATE ( test code = 3576) 08-11-2023 Lab Interpretation (test cod e = 37283-3) Normal [facility] WITH [id number] 15:21:11* Test Item Value Reference Range Interpretation [...] 33.0 g/dL 31.6-35.1 RDW-SD (test code = 01127-3) 42.6 fL 39.0-49.9 RDW-CV (test code = 788-0) 12.9 % 12.0-15.5 PLT (test code = 777-3) See_Comment H [Automated messa ge] The system which generated this result transmitted reference range: 166 - 358 10*3/?L. The reference range was not used to interpret this result as normal/abnormal. MPV (test code = 50804-3) 9.1 fL 9.5-12.9 L NRBC/100 WBC (test code = 3720645802) See_Comment [Automated PadMatcher ssage] The system which generated this result transmitted reference range: 0.0 - 10.0 /100 WBCs. The reference range was not used to interpret this result as normal/abnormal. NRBC x10^3 (test code = 0782245638) See_Comment [Automated messa ge] The system which generated this result transmitted reference range: 10*3/?L. The reference range was not used to interpret this result as normal/abnormal. GRAN MAT (NEUT) % (test code = 770-8) 56.8 % IMM GRAN % (test code = 8608066130) 0.30 % LYMPH % (test code = 736-9) 29.5 % MONO % (test code = 5905-5) 4.3 % EOS % (test code = 713-8) 8.3 % BASO % (test code = 706-2) 0.8 % GRAN MAT x10^3(ANC) (test code = 6655361154) 3.57 10*3/uL 1.88-7.09 IMM GRAN x10^3 (test code = 4910398883) 0.00-0.06 LYMPH x10^3 (test code = 731-0) 1.85 10*3/uL 1.32-3.29 MONO x10^3 (test code = 742-7) 0.27 10*3/uL 0.33-0.92 L EOS x10^3 (test code = 711-2) 0.52 10*3/uL 0.03-0.39 H BASO x10^3 (test code = 704-7) 0.05 10*3/uL 0.01-0.07 Lab Interpretation (test code = 49657-0) [facility]OLIC [facility] (03468)2022-04-26 15:12:13* Test Item Value Reference Range Interpretation Comme nts NA (test code = 3820335888) 141 mmol/L 135-145 K (test code = 2850592543) 3.4 mmol/L 3.5-5.0 L CL (test code = 7739691530) 104 mmol/L 98-108 CO2 TOTAL (test code = 2317748067) 23 mmol/L 23-31 AGAP (test code = 7650204552) 2-16 BUN (test code = 2368584093) 9 mg/dL 7-23 GLUCOSE (test code = 4469244666) 101 mg/dL 70-110 CREATININE (test code = 2078844710) 0.82 mg/dL 0.50-1.04 TOTAL BILI (test code = 8444581968) 0.7 mg/dL 0.1-1.1 CALCIUM (test code = 3227725358) 9.3 mg/dL 8.6-10.6 T PROTEIN (test code = 7169460193) 8.1 g/dL 6.3-8.2 ALBUMIN (test code = 1625978301) 4.7 g/dL 3.5-5.0 ALK PHOS (test code = 1285850656) 108 U/L 34-122 ALTv (test code = 1742-6) 24 U/L 5-35 AST(SGOT) (test code = 5796061835) 49 U/L 13-40 H eGFR (test code = 5967556211) mL/min/1.73m2 WESLEY (test code = WESLEY) Association [...] imaging tests). Lab Interpretation (test code = 49422-8) Abnormal [facility] [id number] 14:45:00* Test Item Value Reference Range Interpretation Comme nts POCT PREG (test code = 1605) negative On board controls acceptable with C Line (test code = 3574) present POCT PREG LOT # (test code = 3575) [id number] POCT PREG TEST DATE ( test code = 3576) 08/11/2023 Lab Interpretation (test cod e = 91781-0) [facility] [id number] 01:22:00* Test Item Value Reference Range Interpretation Comme nts POCT PREG (test code = 1605) Negative On board controls acceptable with C Line (test code = 3574) Present POCT PREG LOT # (test code = 3575) [id number] POCT PREG TEST DATE ( test code = 3576) 08-11-2023 Lab Interpretation (test cod e = 75688-9) Normal [facility] METABOLIC PANEL (NA, K, CL, CO2, GLUCOSE, BUN, CREATININE, CA)2022-04-07 23:01:10* Test Item Value Reference Range Interpretation Comme nts NA (test code = 8061078251) 138 mmol/L 135-145 K (test code = 7086843861) 4.3 mmol/L 3.5-5.0 CL (test code = 7243928243) 107 mmol/L 98-108 CO2 TOTAL (test code = 7493358496) 20 mmol/L 23-31 L AGAP (test code = 0500701522) 2-16 BUN (test code = 5070278534) 9 mg/dL 7-23 GLUCOSE (test code = 0907918662) 204 mg/dL 70-110 H CREATININE (test code = 4825291164) 0.74 mg/dL 0.50-1.04 CALCIUM (test code = 5559226931) 9.1 mg/dL 8.6-10.6 eGFR (test code = 1722186617) mL/min/1.73m2 WESLEY (test code = WESLEY) Association [...] imaging tests). Lab Interpretation (test code = 60546-3) Abnormal [facility] WITH [id number] 22:57:34* Test Item Value Reference Range Interpretation Comme nts WBC (test code = 6690-2) See_Comment [Automated [employer]] The system which generated this result transmitted reference range: 4.30 - 11.10 10*3/?L. The reference range was not used to interpret this result as normal/abnormal. RBC (test code = 789-8) See_Comment [[employer]] The system which generated this result transmitted [...] 33.5 g/dL 31.6-35.1 RDW-SD (test code = 89494-9) 42.9 fL 39.0-49.9 RDW-CV (test code = 788-0) 13.4 % 12.0-15.5 PLT (test code = 777-3) See_Comment H [Automated messa ge] The system which generated this result transmitted reference range: 166 - 358 10*3/?L. The reference range was not used to interpret this result as normal/abnormal. MPV (test code = 18510-0) 8.9 fL 9.5-12.9 L NRBC/100 WBC (test code = 4684163279) See_Comment [Automated me ssage] The system which generated this result transmitted reference range: 0.0 - 10.0 /100 WBCs. The reference range was not used to interpret this result as normal/abnormal. NRBC x10^3 (test code = 3829509483) See_Comment [Automated messa ge] The system which generated this result transmitted reference range: 10*3/?L. The reference range was not used to interpret this result as normal/abnormal. GRAN MAT (NEUT) % (test code = 770-8) 88.7 % IMM GRAN % (test code = 8686561909) 0.70 % LYMPH % (test code = 736-9) 9.4 % MONO % (test code = 5905-5) 0.9 % EOS % (test code = 713-8) 0.1 % BASO % (test code = 706-2) 0.2 % GRAN MAT x10^3(ANC) (test code = 7231627663) 7.81 10*3/uL 1.88-7.09 H IMM GRAN x10^3 (test code = 3415177802) 0.06 10*3/uL 0.00-0.06 LYMPH x10^3 (test code = 731-0) 0.83 10*3/uL 1.32-3.29 L MONO x10^3 (test code = 742-7) 0.08 10*3/uL 0.33-0.92 L EOS x10^3 (test code = 711-2) 0.03-0.39 L BASO x10^3 (test code = 704-7) 0.01-0.07 Lab Interpretation (test code = 18091-9) Abnormal [facility] [id number] 14:07:00* Test Item Value Reference Range Interpretation Comme nts POCT PREG (test code = 1605) negative On board controls acceptable with C Line (test code = 3574) present POCT PREG LOT # (test code = 3575) [id number] POCT PREG TEST DATE ( test code = 3576) 08/11/2023 Lab Interpretation (test cod e = 76681-8) Normal [facility] [id number] 13:52:00* Test Item Value Reference Range Interpretation Comme nts POCT PREG (test code = 1605) negative On board controls acceptable with C Line (test code = 3574) present Lab Interpretation (test cod e = 18070-3) Normal [facility] [id number] 14:59:00* Test Item Value Reference Range Interpretation Comme nts POCT PREG (test code = 1605) negative On board controls acceptable with C Line (test code = 3574) yes POCT PREG LOT # (test code = 3575) [id number] POCT PREG TEST DATE ( test code = 3576) 07/11/2023 Lab Interpretation (test cod e = 22361-7) Normal [facility]. METABOLIC PANEL (19937)2022 17:51:43* Test Item Value Reference Range Interpretation Comme nts NA (test code = 5533245879) 139 mmol/L 135-145 K (test code = 3304006244) 4.1 mmol/L 3.5-5 CL (test code = 0669555526) 104 mmol/L 98-108 CO2 TOTAL (test code = 7803634978) 22 mmol/L 23-31 L AGAP (test code = 3517123487) 2-16 BUN (test code = 2981298823) 7 mg/dL 7-23 GLUCOSE (test code = 5166927593) 114 mg/dL 70-110 H CREATININE (test code = 3036898987) 0.69 mg/dL 0.5-1.04 TOTAL BILI (test code = 2930316094) 0.4 mg/dL 0.1-1.1 CALCIUM (test code = 3127845715) 9.7 mg/dL 8.6-10.6 T PROTEIN (test code = 4320591445) 7.2 g/dL 6.3-8.2 ALBUMIN (test code = 7740252138) 4.6 g/dL 3.5-5 ALK PHOS (test code = 0100044886) 65 U/L 34-122 ALTv (test code = 1742-6) 15 U/L 5-35 AST(SGOT) (test code = 9843273582) 19 U/L 13-40 eGFR (test code = 7852457267) mL/min/1.73m2 WESLEY (test code = WESLEY) Association [...] imaging tests). Lab Interpretation (test code = 70964-3) Abnormal [facility] WITH [id number] 17:40:24* Test Item Value Reference Range Interpretation Comme nts WBC (test code = 6690-2) See_Comment [Automated [employer]] The system which generated this result transmitted [...] 33.3 g/dL 31.6-35.1 RDW-SD (test code = 25851-7) 43.1 fL 39-49.9 RDW-CV (test code = 788-0) 13.2 % 12-15.5 PLT (test code = 777-3) See_Comment [Automated [employer]] The system which generated this result transmitted reference range: 166 - 358 10*3/?L. The reference range was not used to interpret this result as normal/abnormal. MPV (test code = 01897-4) 9.5 fL 9.5-12.9 NRBC/100 WBC (test code = 6040722234) See_Comment [Automated [employer] ssage] The system which generated this result transmitted reference range: 0.0 - 10.0 /100 WBCs. The reference range was not used to interpret this result as normal/abnormal. NRBC x10^3 (test code = 9612223408) See_Comment [Automated [employer]] The system which generated this result transmitted reference range: 10*3/?L. The reference range was not used to interpret this result as normal/abnormal. GRAN MAT (NEUT) % (test code = 770-8) 57.8 % IMM GRAN % (test code = 7762222507) 0.20 % LYMPH % (test code = 736-9) 30.8 % MONO % (test code = 5905-5) 5.1 % EOS % (test code = 713-8) 5.6 % BASO % (test code = 706-2) 0.5 % GRAN MAT x10^3(ANC) (test code = 0068414302) 3.61 10*3/uL 1.88-7.09 IMM GRAN x10^3 (test code = 3473375073) 0-0.06 LYMPH x10^3 (test code = 731-0) 1.92 10*3/uL 1.32-3.29 MONO x10^3 (test code = 742-7) 0.32 10*3/uL 0.33-0.92 L EOS x10^3 (test code = 711-2) 0.35 10*3/uL 0.03-0.39 BASO x10^3 (test code = 704-7) 0.03 10*3/uL 0.01-0.07 Lab Interpretation (test code = 80137-8) Abnormal [facility] [id number] 17:27:00* Test Item Value Reference Range Interpretation Comme nts POCT PREG (test code = 1605) negative On board controls acceptable with C Line (test code = 3574) present POCT PREG LOT # (test code = 3575) [id number] POCT PREG TEST DATE ( test code = 3576) Lab Interpretation (test cod e = 43982-1) Normal [facility] 12:45:21* Test Item Value Reference Range Interpretation Comme nts LIPASE (test code = 8233867240) 41 U/L 0-220 Lab Interpretation (test cod e = 68127-1) Normal [facility] [id number] 10:57:00* Test Item Value Reference Range Interpretation Comme nts POCT PREG (test code = 1605) Negative On board controls acceptable with C Line (test code = 3574) Present POCT PREG LOT # (test code = 3575) [id number] POCT PREG TEST DATE ( test code = 3576) 03/12/2023 Lab Interpretation (test cod e = 13228-5) Normal [facility] (NA, K, CL, CO2, GLUCOSE, BUN, CREATININE, CA)2022-01-18 10:56:51* Test Item Value Reference Range Interpretation Comme nts NA (test code = 4693665109) 137 mmol/L 135-145 K (test code = 7583507260) 4.6 mmol/L 3.5-5 Slight hemolysis CL (test code = 7883618940) 108 mmol/L 98-108 CO2 TOTAL (test code = 3358060734) 22 mmol/L 23-31 L AGAP (test code = 9974348596) 2-16 BUN (test code = 7276054028) 11 mg/dL 7-23 Slight hemolysis GLUCOSE (test code = 1464989789) 83 mg/dL 70-110 CREATININE (test code = 8413657079) 0.68 mg/dL 0.5-1.04 CALCIUM (test code = 9904383880) 8.8 mg/dL 8.6-10.6 eGFR (test code = 2972996954) mL/min/1.73m2 WESLEY (test code = WESLEY) Association [...] imaging tests). Lab Interpretation (test code = 05535-1) Abnormal [facility] (39609) (ALB,T.PRO,BILI T,BU/BC,ALT,AST,ALK PHOS)2022-01-18 10:56:51* Test Item Value Reference Range Interpretation Comme nts TOTAL BILI (test code = 9403328072) 0.6 mg/dL 0.1-1.1 BILI UNCON (test code = 5856858808) 0.1 mg/dL 0.1-1.1 BILI CONJ (test code = 6464991099) 0.0 mg/dL 0-0.3 T PROTEIN (test code = 8927836539) 8.6 g/dL 6.3-8.2 H ALBUMIN (test code = 9501973819)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 ailments declared. Pt left unit w all belongings and papers w/o incident. Discharge complete Rita Atkins RN [facility] 2024-03-04 19:13:19 Pt requesting IV pain meds, RN updated pt on ordered intervals for morphine [facility] 2024-03-04 18:12:35 Full report called to receiving nurse including c/c, dx, POC, interventions, IV, VS, pt physical mental and resp status. All questions answered. Transport requested T [facility] 2024-03-04 17:44:07 [facility] Pt back in bed w/o incident. [facility] 2024-03-04 15:37:41 Telephone note was placed by Dr. Vance yesterday. IM-GASTROENTEROLOGY STAFF [facility] 2024-03-04 15:10:00 Pt requesting IV pain medicine as the norco hasn't worked [facility] 2024-03-04 12:39:35 Aline team paged T [facility] 2024-03-04 12:32:04 Pt back to bed w/o incident T [facility] 2024-03-04 12:31:47 Pt ambulatory to rr w standby assistance from RN. T [facility] 2024-03-04 12:18:00 Upon rounding, RN [...] and tx per plan of care T [facility] 2024-03-04 11:15:00 Patient resting in stretcher quietly, no S/S of distress noted, no active vomiting. AAOx4, GCS 15, respirations are even and unlabored, skin warm/dry, color appropriate for ethnicity. Siderails up x2, bed low and locked, call light in reach, will continue to monitor. Noe Meza RN [facility] 2024-03-04 10:10:00 notified pt vomited, failed PO challenge. Brigida Garcia RN [facility] 2024-03-04 08:05:08 Attempted 20g piv unsucessful x 1 Awaiting staff assistance [facility] 2024-03-04 07:30:00 Patient is alert and oriented x4, respirations are even and unlabored, PPPX4, skin warm and dry, pt complains of sharp abd pain, MM dry. [facility] 2024-03-04 07:24:15 Report given to Martin CURRIE. Patient name and confirmed. Patient chief complaint, current status and assessment findings, allergies, orders, infusion verify, and MAR reviewed. Patient plan of care discussed. Patient/family updated on plan of care and verbalizes understanding at this time. [facility] Meena Crowder RN [facility] 2024-03-04 07:17:20 ERT notified this RN of unsuccessful PIV attempts. This RN at bedside for USG PIV initiation. PIV successfully initiated, but patient immediately requesting PIV be removed due to pain. Additional RN to be notified for additional attempt. [facility] 2024-03-04 07:10:10 Resident at bedside. [facility] 2024-03-04 07:00:00 Natanael Dyson is a 29 year old female presents to ED c/o abdominal pain x couple of weeks. Patient reports was recently seen and admitted, but had to leave early due to child being ill. Patient reports continued N/V, abdominal pain, and diarrhea w/o relief by OTC medication. 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 Patient reports 8/10 pain. Patient denies PMH. Patient resting in ED stretcher. Patient Aox4, NAD noted, VSS, RR e/u. See general and GI focused assessment. T [facility] 2024-03-04 06:47:36 Patient to room for further evaluation in WC, NAD noted. T [facility] 2024-03-04 06:41:49 Natanael Dyson is [...] E/U. Patient to room for further eval. [facility] Hany Fritz RN [facility] 2024-03-04 06:39:16 Called for patient, no answer, registration reports patient went to , will call again. 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 METABOLIC PANEL (02759) - Abnormal NA 138 135 - 145 [...] DIFF URINALYSIS POCT TEST COMP. METABOLIC PANEL (98318) LIPASE Orders Placed This Encounter Medications ondansetron [...] COURSE ED Course as of 03/04/24 1434 Wed Mar 04, 2024 1236 Medicine will see the patient [DK] 1212 Medicien team paged again [DK] 1135 Medicine team paged again [DK] 1120 Medicine tream paged [DK] 7732 CT ABDOMEN PELVIS WO CONTRAST No acute [...] Observation Condition -- Comment Treatment Team: KORI [[id number]] Discharge Medications: Patient's Medications START taking these [...] vomiting Plan 1. Readmit to medicine team [facility] 2024-03-03 11:17:18 Noted path with [...] Vance MD PGY 5 Gastroenterology and Hepatology [facility] 2024-02-28 09:07:48 TRANSITIONAL CARE MANAGEMENT ASSESSMENT 02/28/2024 Natanael Dyson [id number] Natanael Dyson is a 29 year old /White female was admitted on 02/22/[address] She was discharged on 02/27/24 with discharge disposition of HR- Routine Discharge. Admitting Physician: Hany Lee Discharge Diagnosis: FINAL DIAGNOSIS: (the reason, after study, for admitting the patient to the hospital) Esophagitis Gastritis Linked Episodes Type: Episode: Status: Noted: Resolved: Last update: Updated by: TRANSITION OF CARE TCM Active 02/27/2024 02/28/2024 9:07 AM Tc Renteria, RN Comments: TCM Twj-ourf-ml-face outreach documentation: Discharge Assessment Chart Assessed: 02/28/24 [...] with the names or descriptions of any pzop-bgz-kfsphgq or supplements you are currently taking?: Yes [...] Phone 03/10/2024 10:00 AM Ca Martinez FNP [facility], [facility] [phone] Tc Renteria RN [facility] 2024-02-27 15:43:07 Addendum created 02/27/24 1543 by Blanca Leavitt CRNA Intraprocedure Meds edited NACR-NURSE PLANT MAINTENANCE WORKER,CERTIFIED REGISTERED NURSE PLANT MAINTENANCE WORKER [facility] 2024-02-27 12:01:14 Patient: Natanael Dyson Procedure Summary Date: 02/27/24 Room / Location: [place] [id number] / ENDOSCOPY (CS) OR LOCATION Anesthesia Start: [...] status: acceptable Hydration status: acceptable AN-ANESTHESIOLOGY ANESTHESIOLOGIST [facility] 2024-02-27 07:19:18 Problem: Pain Goal: [...] Outcome: Progressing as expected Sheyla Sharma RN 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 Hold on DOS. 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 Chart/ interval hx/ lab data reviewed. NPO status confirmed. Anesthetic plan d/w pt and she understands/ wishes to proceed. Consent obtained. [facility] 2024-02-27 06:15:00 Rec'd report from sheyla CURRIE. Pt AAO, RA, no ISO,denies overnight vomiting, rec'd enema about 0500 and have since been having BMs per RN. Bobbi Du RN [facility] 2024-02-26 13:07:55 Problem: Falls, Risk [...] Not progressing as expected Tete Louis RN [facility] 2024-02-25 23:57:35 Problem: Pain Goal: [...] Outcome: Progressing as expected Cheryl Vásquez RN [facility] 2024-02-25 07:09:28 Problem: Pain Goal: [...] nutritional intake Outcome: Progressing as expected T [facility] 2024-02-24 09:16:21 Uploaded to OnBase: [facility] &[facility] Report Bobbi vargas, PCP 02/24/2024 9:17 am T Bobbi Saini [facility] 2024-02-24 03:16:43 Problem: Pain Goal: Control of pain at or below patient's documented comfort goal Outcome: Progressing as expected Problem: Falls, Risk of Goal: Absence of falls Outcome: Progressing as expected Problem: Infection Risk Goal: Absence of infection Outcome: Progressing as expected Problem: Discharge Planning Goal: Adequate for discharge Outcome: Progressing as expected T [facility] 2024-02-23 19:02:34 Problem: Pain Goal: [...] Outcome: Progressing as expected Sheldon Montague RN [facility] 2024-02-22 22:09:02 Problem: Pain Goal: [...] Adequate nutritional intake Outcome: Progressing as expected [facility] 2024-02-22 19:25:41 Pt to [facility] 115[facility] at this time via [facility] transport in stretcher. Patient in possession of all belongings. VSS, Respirations even and unlabored, AAOx4, NAD noted. [facility] Dennise Kirkland RN [facility] 2024-02-22 19:09:18 Patient requesting medication for anxiety. Team paged at this time. [facility] 2024-02-22 19:00:00 Report received from Brent CURRIE. Previous treatment and plan of care discussed. Patient resting in bed. Bed locked and in lowest position. Call light within reach. RR even and unlabored. VSS. A&Ox4. NAD noted. Awaiting transport upstairs. [facility] 2024-02-22 18:32:24 Report given to RN. Patient to be admitted to [facility]. Patient verbalized understanding of plan of care. Patient A&O x4. VSS. NAD noted. Resp even and non labored. Skin warm and dry. IV patent. Belongings to be sent with patient. Awaiting transportation. [facility] Brent Solis RN [facility] 2024-02-22 17:45:00 Pt ambulatory to and from restroom with steady gait in NAD [facility] 2024-02-22 15:45:00 Pt laying in bed meds given per MAR waiting on bed place ment, pt A&Ox4 resp even and unlabored gcs 15 [facility] 2024-02-22 13:45:00 Pt resting comfortably, skin normal warm and dry, resp even and unlabored. VSS. Bed in lowest, locked position, side rails up. Call light within reach. Awaiting results. [facility] 2024-02-22 11:45:00 Pt sitting in bed A&Ox4 , skin normal warm and dry, resp even and unlabored. VSS. Bed in lowest, locked position, side rails up. Call light within reach. Awaiting results. [facility] 2024-02-22 09:45:00 Natanael Dyson is [...] will continue to monitor. Awaiting further orders. [facility] 2024-02-22 09:31:00 Natanael Dyson is a 29 year old female c/o brayan umbical pain x 1 week. Pain worsening x 4 days. Seen at hospital in [place]. Reports no relief with zofran. Also reports vomiting/diarrhea. Reports blood in stool and emesis. No fever. Denies urinary. Denies . Alla Richardson RN 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 History provided by: Patient nursing information systems coordinator used: No Past Medical History/Immunizations: Past Medical [...] N/A 07/21/2019 Surgeon: Prasanna Vargas MD; Location: [facility] Labor [facility] Delivery OR Location TUBAL LIGATION N/A 07/21/2019 Surgeon: Prasanna Vargas MD; Location: [facility] Delivery OR Location [...] 0.01 - 0.07 10*3/uL COMP. METABOLIC PANEL (10342) - Abnormal NA 137 135 - 145 [...] LIMITED CBC WITH DIFF COMP. METABOLIC PANEL (12229) LIPASE URINALYSIS TROPONIN I TEST, SERUM O2 [...] Observation Condition -- Comment Treatment Team: KORI [[id number]] Discharge Medications: Patient's Medications START taking these medications No medications on file CONTINUE taking these medications which have NOT CHANGED ALBUTEROL 90 MCG/ACTUATION INHALER Inhale 2 Puffs every 6 (six) hours as needed for Wheezing or Shortness of Breath. BACLOFEN 10 MG TABLET Take 1 tablet by mouth every 6 (six) hours as needed. SJOPXOAXDD-ABHHTAQRILHWY-DIRW (FIORICET) 50-300-40 MG PER CAPSULE Take 1 [...] medications on file Follow-up: - Admitting to [facility] Electronically signed by: Adriana Piedra MD Internal Medicine PGY-3 [place] Team Adriana Piedra MD 02/22/24 1425 Associated [...] persistent vomiting noted after. Case discussed with [facility] team. Plan made to admit for intractable vomiting and persistent abd pain. Pt had recent CT and allergic reaction. Will defer repeat CT to primary team if needed as she will need pre-treatment for allergy Diagnosis: Intractable vomiting Abdominal pain Plan: Admit to Internal Medicine Janett Mongerical INTERNAL MEDICINE [facility] 2023-08-27 16:08:07 TRANSITIONAL CARE MANAGEMENT ASSESSMENT 08/27/2023 Natanael Dyson [id number] Natanael Dyson is a 28 year old /White female was admitted on 08/23/23 to [facility], [address]. She was discharged on 08/24/23 with [...] Dominick Adamson 08/23/2023 - 08/24/2023 Neurology/Neurological Surgery ([facility] 11B). Pt. Access via the AVS page 4 there. Pt. Has gone under this chart Karis with no results found. Gave HIM contact number for further assistance. No linked episodes TCM Cwh-piff-jh-face outreach documentation: Discharge Assessment Chart Assessed: 08/27/23 [...] 9:30 AM ADC MOBILE MRI 1 (1.5T) [facility], [facility] [phone] Marlys Odell LVN [facility] 2023-08-26 13:35:01 TRANSITIONAL CARE MANAGEMENT ASSESSMENT 08/26/2023 Natanael Dyson [id number] Natanael Dyson is a 28 year old /White female was admitted on 08/23/[address] She was discharged on 08/24/23 with discharge disposition of HR- Routine Discharge. Admitting Physician: Roldan Walker Discharge Diagnosis: Cerebrovascular accident (CVA), unspecified mechanism [I63.9] No contact. No linked episodes TCM Dga-oodt-zc-face outreach documentation: Future Appointments: [facility] 2023-05-19 12:16:00 Pt given printed [...] with steady gait, in no apparent distress. 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 2023-05-19 08:50:00 Patient came in with complaints of epigastric pain that radiates to her left shoulder associated with nausea and vomiting since a couple of weeks now. Patient states that she was worked up in [facility] 2 weeks ago and found nothing wrong, just referred to a GI doctor but she hasn't seen one because she has no insurance. NNE Ruiz RN [facility] 2023-01-16 10:56:45 TRANSITIONAL CARE MANAGEMENT ASSESSMENT 01/16/2023 Natanael Dyson [id number] Natanael Dyson is a 27 year old /White female was admitted on 01/11/[address] She was discharged on 01/15/23 with discharge disposition of HR- Routine Discharge. Admitting Physician: Kun Steele Discharge Diagnosis: Postprocedural intraabdominal abscess [T81.43XA] Pt. Verbalized understanding discharge instructions. Plans to f/u with pcp. Linked Episodes Type: Episode: Status: Noted: Resolved: Last update: Updated by: TRANSITION OF CARE tcm Active 01/16/2023 01/16/2023 10:56 AM Marlys Odell LVN Comments: TCM Erh-ibqp-eg-face outreach documentation: Discharge Assessment Chart Assessed: 01/16/23 [...] with the names or descriptions of any mtwm-ptk-nhamhqh or supplements you are currently taking?: Yes [...] time?: No Future Appointments: Marlys Odell LVN [facility] 2023-01-15 18:18:34 Patient is cleared [...] Vero Crews RN Outcome: Progressing as expected [facility] 2023-01-15 15:08:00 Called outpatient pharmacy and spoke to Maggi. Stated pharmacy will bring patient's medications to her room within 45min to an hour. Vero Crews RN [facility] 2023-01-15 13:11:00 Problem: Infection Risk Goal: Absence of infection Outcome: Progressing as expected Problem: Pain Goal: Control of pain at or below patient's documented comfort goal Outcome: Progressing as expected Goal: Reduction in pain sensation Outcome: Progressing as expected Problem: Discharge Planning Goal: Adequate for discharge Outcome: Progressing as expected Goal: Effective communication Outcome: Progressing as expected T [facility] 2023-01-15 06:25:22 Problem: Infection Risk Goal: Absence of infection Outcome: Progressing as expected Problem: Pain Goal: Control of pain at or below patient's documented comfort goal Outcome: Progressing as expected Goal: Reduction in pain sensation Outcome: Progressing as expected Problem: Discharge Planning Goal: Adequate for discharge Outcome: Progressing as expected Goal: Effective communication Outcome: Progressing as expected Katy Means RN [facility] 2023-01-14 09:27:52 Problem: Infection Risk Goal: Absence of infection Outcome: Progressing as expected Problem: Pain Goal: Control of pain at or below patient's documented comfort goal Outcome: Progressing as expected Goal: Reduction in pain sensation Outcome: Progressing as expected Problem: Discharge Planning Goal: Adequate for discharge Outcome: Progressing as expected Goal: Effective communication Outcome: Progressing as expected Charles Win RN [facility] 2023-01-13 22:20:47 Notified MD by bonny due to double dose of Tylenol being given. Per MD Brito no more Tylenol to be given for tonight. [facility] 2023-01-13 21:55:20 Problem: Infection Risk Goal: Absence of infection Outcome: Progressing as expected Problem: Pain Goal: Control of pain at or below patient's documented comfort goal Outcome: Progressing as expected Goal: Reduction in pain sensation Outcome: Progressing as expected Problem: Discharge Planning Goal: Adequate for discharge Outcome: Progressing as expected Goal: Effective communication Outcome: Progressing as expected [facility] 2023-01-13 08:20:43 Problem: Infection Risk Goal: Absence of infection Outcome: Progressing as expected Problem: Pain Goal: Control of pain at or below patient's documented comfort goal Outcome: Progressing as expected Goal: Reduction in pain sensation Outcome: Progressing as expected Problem: Discharge Planning Goal: Adequate for discharge Outcome: Progressing as expected Goal: Effective communication Outcome: Progressing as expected [facility] 2023-01-12 20:10:08 Problem: Infection Risk Goal: Absence of infection Outcome: Progressing as expected Problem: Pain Goal: Control of pain at or below patient's documented comfort goal Outcome: Progressing as expected Goal: Reduction in pain sensation Outcome: Progressing as expected Problem: Discharge Planning Goal: Adequate for discharge Outcome: Progressing as expected Goal: Effective communication Outcome: Progressing as expected [facility] 2023-01-12 09:28:38 Problem: Infection Risk Goal: Absence of infection Outcome: Progressing as expected Problem: Pain Goal: Control of pain at or below patient's documented comfort goal Outcome: Progressing as expected Goal: Reduction in pain sensation Outcome: Progressing as expected Problem: Discharge Planning Goal: Adequate for discharge Outcome: Progressing as expected Goal: Effective communication Outcome: Progressing as expected [facility] 2023-01-12 05:17:00 Problem: Infection Risk Goal: Absence of infection Outcome: Progressing as expected Problem: Pain Goal: Control of pain at or below patient's documented comfort goal Outcome: Progressing as expected Goal: Reduction in pain sensation Outcome: Progressing as expected Problem: Discharge Planning Goal: Adequate for discharge Outcome: Progressing as expected Goal: Effective communication Outcome: Progressing as expected [facility] 2023-01-12 01:43:06 Report to lisy CURRIE on 9C. Pt awaiting transport T Melvin Villegas RN [facility] 2023-01-12 01:10:30 Attempted report, nurse unavailable, left callback number [facility] 2023-01-12 00:24:49 Surgery at bedside [facility] 2023-01-11 23:08:11 made aware of pt increased pain and nausea [facility] 2023-01-11 22:34:[address], warm blanket given [facility] 2023-01-11 22:18:[address] scan [facility] 2023-01-11 21:30:08 Natanael Dyson is [...] Denies vomiting, denies blood in stool. T [facility] 2023-01-11 21:03:38 Natanael Dyson is a 27 year old female here today c/o abdominal pain x 2 days. Pt denies N/V but reports diarrhea. Pt reports "9/10" pain at this time. Pt reports pain travels down right side abdomen. Pt is A&Ox4, NAD Noted. RR even/unlabored. T 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 Due to the worsening discomfort patient has, for further evaluation at [facility]. Patient states that during her cholecystectomy she [...] when she sits up. Patient has discontinued [place] and anxiety medication due to concern for her liver. She is only used a heating pad for her symptoms with minimal improvement. History provided by: Patient nursing information systems coordinator used: No Past Medical History/Immunizations: Past Medical [...] N/A 07/21/2019 Surgeon: Prasanna Vargas MD; Location: [facility] OR Location TUBAL LIGATION N/A 07/21/2019 Surgeon: Prasanna Vargas MD; Location: [facility] OR Location [...] 0 - 220 U/L COMP. METABOLIC PANEL (11605) TOTAL BETA HCG ASSAY EXTRA TUBE ORANGE EXTRA TUBE LAV EKG: If EKG completed, see Procedure Note. Orders and Treatments: Orders Placed This Encounter Procedures CT ABDOMEN PELVIS W CONTRAST POCT TEST URINALYSIS LIPASE COMP. METABOLIC PANEL (43063) TOTAL BHCG (QUANTITATIVE) Orders Placed This Encounter [...] mouth every 6 (six) hours as needed. [id number] (FIORICET) 50-300-40 MG PER CAPSULE Take 1 [...] in the Gallbladder fossa, post-recent cholecystectomy in [place]. General surgery was consulted and admitted the patient for further workup and management. [facility] 2022-12-03 08:57:03 Patient has an appointment 12/12/22. Blayne Silva RN 12/03/2022 8:57 AM Blayne Silva RN [facility]
--- NOTE | 2024-09-09 09:00 | RAD REPORT ---
EXAM: Soft Tissue Neck Wo Contr INDICATION: PAIN TECHNIQUE: Helical CT examination of the neck without IV contrast. Sagittal and coronal reformations were generated. This exam was performed according to our departmental dose-optimization program, which includes automated exposure control, adjustment of the mA and/or kV according to patient size a nd/or use of iterative reconstruction technique. COMPARISON: None FINDINGS: Aerodigestive Tract Structures: Nasopharynx, oropharynx, oral cavity, larynx and hypopharynx are norm al. Lymph Nodes: No pathologic appearing cervical lymph nodes. Parotid Glands: Normal Submandibular Glands: Normal Thyroid Gland: Normal Included Intracranial Structures: Normal Included Orbits: Normal Paranasal Sinuses: Predominantly clear Tympanomastoid Cavities: Normal Vascular Structures: Normal Osseous Structures: No acute osseous abnormality. Included Lung Apices: Normal IMPRESSION: No acute soft tissue findings at the neck.
[2024-09-09 10:09] LABS: Hematocrit 44.1 % (36.0-45.0); Hemoglobin 15.2 g/dL (12.0-15.0); MCH 29.8 pg (27.0-35.0); MCHC 34.4 g/dL (32.0-36.0); MCV 86.6 fL (80-100); MPV 8.5 fL (7.6-11.3); Platelets 336 thou/uL (152-406); RBC Red Blood Cell Count 5.09 M/uL (3.86-4.86); Red Cell Distribution Width 13.2 % (12.1-15.2)
[2024-09-09 10:11] LABS: Specific Gravity 1.009 (1.005-1.030); Sqamous Epithelial <5 /HPF (None Seen); Urine Bacteria <20 /HPF (<20); Urine Bilirubin NEGATIVE (Negative); Urine Blood Negative (Negative); Urine Clarity Turbid (Clear); Urine Color Colorless (Yellow); Urine Glucose NEGATIVE (Negative); Urine Ketones NEGATIVE (Negative); Urine Micro Reflex YN NO BILL MICROSCOPIC; Urine Nitrite NEGATIVE (Negative); Urine Protein NEGATIVE (Negative); Urine RBC <5 /HPF (None Seen); Urine Urobilinogen Normal (Normal); Urine WBC <5 /HPF (<5); Urine pH 7.5 (5.0-7.0)
[2024-09-09 10:17] LABS: Anion Gap 9.2 mEq/L (5.0-15.0); Potassium 3.2 mEq/L (3.5-5.1)
--- NOTE | 2024-09-09 10:26 | ER ---
Nurse's Notes [facility] Name: Natanael Dyson Age: 29 yrs Sex: Female : 1995 Arrival Date: 09/09/2024 Time: 08:17 Bed 7 Private MD: Diagnosis: Other acute postprocedural pain Presentation: 09/09 08:29 Chief complaint: Patient states: Had tonsillectomy 08/27. Started to have severe pain ll1 and unable to open her mouth well since 08/29. Dizziness for 2 days, no fever. Coronavirus screen: Client denies travel out of the [place] in the last 14 days. At this time, the client does not indicate any symptoms associated with coronavirus-19. Ebola Screen: Patient denies travel to an Ebola-affected area in the 21 days before illness onset. Initial Sepsis Screen: Does the patient meet any 2 criteria? No. Patient's initial sepsis screen is negative. Does the patient have a suspected source of infection? No. Patient's initial sepsis screen is negative. Risk Assessment: Do you want to hurt yourself or someone else? Patient reports no desire to harm self or others. Onset of symptoms was August 29, 2024. 08:29 Method Of Arrival: Ambulatory ll1 08:29 Acuity: THIERNO 3 ll1 Triage Assessment: 08:32 General: Appears distressed, uncomfortable, Behavior is calm, cooperative, appropriate ll1 for age. Pain: Complains of pain in throat Pain currently is 10 out of 10 on a pain scale. Quality of pain is described as aching. EENT: Reports difficulty swallowing pain when swallowing unable to open mouth fully. Neuro: Reports dizziness. Historical: - Allergies: 08:28 Compazine; ll1 08:28 Haldol; ll1 08:28 Iodine; ll1 08:28 Morphine; ll1 08:28 NSAIDS NON STEROIDAL ANTI INFLAMMATORY DRUG; ll1 08:28 Reglan; ll1 08:28 Toradol; ll1 - PMHx: 08:28 Anxiety; breast cancer; depressive disorder; Kidney stone; nephritis; ll1 - PSHx: 08:28 Cholecystectomy; Ligation of fallopian tube; Tonsillectomy; ll1 - Immunization history:: Adult Immunizations up to date. - Social history:: Smoking status: Patient denies any tobacco usage or history of. Screenin:30 [facility] ED Fall Risk Assessment (Adult) History of falling in the last 3 months, ph including since admission No falls in past 3 months (0 pts) Confusion or Disorientation No (0 pts) Intoxicated or Sedated No (0 pts) Impaired Gait No (0 pts) Mobility Assist Device Used No (0 pt) Altered Elimination No (0 pt) Score/Fall Risk Level 0 - 2 = Low Risk Oriented to surroundings, Maintained a safe environment, Hourly rounding (assess needs \\T\\ fall precautionary measures) done. Abuse screen: Denies threats or abuse. Denies injuries from another. Nutritional screening: No deficits noted. Tuberculosis screening: No symptoms or risk factors identified. Assessment: 09:07 Reassessment: Patient appears in no apparent distress at this time. Patient and/or db family updated on plan of care and expected duration. Pain level reassessed. Patient is alert, oriented x 3, equal unlabored respirations, skin warm/dry/pink. General: Appears in no apparent distress. comfortable, Behavior is calm, cooperative. Neuro: Level of Consciousness is awake, alert, obeys commands, Oriented to person, place, time, situation. Respiratory: Airway is patent Respiratory effort is even, unlabored, Respiratory pattern is regular, symmetrical. 10:09 Reassessment: Patient appears in no apparent distress at this time. Patient and/or db family updated on plan of care and expected duration. Pain level reassessed. Patient is alert, oriented x 3, equal unlabored respirations, skin warm/dry/pink. PATIENT SPOUSE AT BEDSIDE. 10:26 Reassessment: Pt requesting Dilaudid for her throat pain, Dr Prince at bedside ph informed pt that she would not be giving be giving her that for throat pain, pt then stated, " Y'all are a bunch of fucking quacks here. I should have just went to my ENT." Pt then called ENT office and left ED before signing d/c papers. Vital Signs: 08:29 BP 136 / 101; Pulse 97; Resp 17; Temp 97.8; Pulse Ox 97% on R/A; Weight 58.97 kg; ll1 Height 5 ft. 1 in. ; Pain 10/10; 08:29 Body Mass Index 24.56 (58.97 kg, 154.94 cm) ll1 08:29 Pain Scale: Adult ll1 ED Course: 08:22 Patient arrived in ED. cj3 08:23 Arm band placed on Patient placed in an exam room, on a stretcher. ll1 08:26 Lisa Prince MD is Attending Physician. gb1 08:32 Triage completed. ll1 08:50 Soft Tissue Neck Wo Contr In Process Unspecified. EDMS 08:51 Mercedes Aaron, RN is Primary Nurse. db 09:07 Missed attempt(s): 22 gauge in right antecubital area. Bleeding controlled, band aid db applied, catheter tip intact. 09:30 Inserted saline lock: 24 gauge in right hand, using aseptic technique. Blood collected. ll1 Flushed with 10 mL NS. 10:00 Patient has correct armband on for positive identification. Bed in low position. Call ph light in reach. Side rails up X 1. Pulse ox on. NIBP on. 10:24 Radhika Jordan MD is Referral Physician. gb1 10:30 IV discontinued, intact, bleeding controlled, No redness/swelling at site. Pressure ph dressing applied. 10:31 No provider procedures requiring assistance completed. ph Administered Medications: No medications were administered Medication: 10:30 VIS not applicable for this client. ph Outcome: 10:25 Discharge ordered by MD. gb1 10:31 Discharged to home ambulatory, ph 10:31 Condition: good 10:31 Discharge instructions given to patient, Instructed on discharge instructions, follow up and referral plans. Demonstrated understanding of instructions, follow-up care, 10:31 Patient left the ED. ph Signatures: Dispatcher [employer] [facility] Viktoriya Jaramillo RN RN ph Lewis, Lynsay RN RN ll1 Mercedes Aaron, RN Lisa Abarca MD MD gb1 Blanca Gutierrez cj3
--- NOTE | 2024-09-09 10:26 | EDPHYS ---
Physician Documentation [facility] Name: Natanael Dyson Age: 29 yrs Sex: Female : 1995 Arrival Date: 09/09/2024 Time: 08:17 Bed 7 Private MD: ED Physician Lisa Prince HPI: 09/09 17:42 This 29 yrs old Female presents to ER via Ambulatory with complaints of Sore gb1 Throat, Dizziness, Swollen Throat. 17:42 29-year-old female with sore throat states that she had a tonsillectomy by Dr. Julian stauffer last week. She went to the office for difficulty and painful swallowing. She has a history of anxiety, breast cancer, depression, kidney stones and nephritis. She denies any fever or chills. She is able to tolerate liquids.. Historical: - Allergies: 08:28 Compazine; ll1 08:28 Haldol; ll1 08:28 Iodine; ll1 08:28 Morphine; ll1 08:28 NSAIDS NON STEROIDAL ANTI INFLAMMATORY DRUG; ll1 08:28 Reglan; ll1 08:28 Toradol; ll1 - PMHx: 08:28 Anxiety; breast cancer; depressive disorder; Kidney stone; nephritis; ll1 - PSHx: 08:28 Cholecystectomy; Ligation of fallopian tube; Tonsillectomy; ll1 - Immunization history:: Adult Immunizations up to date. - Social history:: Smoking status: Patient denies any tobacco usage or history of. Exam: 17:42 Constitutional: This is a well developed, well nourished patient who is awake, alert, gb1 and in no acute distress. Head/Face: Normocephalic, atraumatic. Eyes: Pupils equal round and reactive to light, extra-ocular motions intact. Lids and lashes normal. Conjunctiva and sclera are non-icteric and not injected. Cornea within normal limits. Periorbital areas with no swelling, redness, or edema. ENT: Nares patent. No nasal discharge, no septal abnormalities noted. Tympanic membranes are normal and external auditory canals are clear. Oropharynx with no redness, swelling, or masses, exudates, or evidence of obstruction, uvula midline. Mucous membranes moist. Neck: Trachea midline, no thyromegaly or masses palpated, and no cervical lymphadenopathy. Supple, full range of motion without nuchal rigidity, or vertebral point tenderness. No Meningismus. Chest/axilla: Normal chest wall appearance and motion. Nontender with no deformity. No lesions are appreciated. Cardiovascular: Regular rate and rhythm with a normal S1 and S2. No gallops, murmurs, or rubs. Normal PMI, no JVD. No pulse deficits. Respiratory: Lungs have equal breath sounds bilaterally, clear to auscultation and percussion. No rales, rhonchi or wheezes noted. No increased work of breathing, no retractions or nasal flaring. Abdomen/GI: Soft, non-tender, with normal bowel sounds. No distension or tympany. No guarding or rebound. No evidence of tenderness throughout. Skin: Warm, dry with normal turgor. Normal color with no rashes, no lesions, and no evidence of cellulitis. MS/ Extremity: Pulses equal, no cyanosis. Neurovascular intact. Full, normal range of motion. Vital Signs: 08:29 BP 136 / 101; Pulse 97; Resp 17; Temp 97.8; Pulse Ox 97% on R/A; Weight 58.97 kg; ll1 Height 5 ft. 1 in. ; Pain 1010; 08:29 Body Mass Index 24.56 (58.97 kg, 154.94 cm) ll1 08:29 Pain Scale: Adult ll1 MDM: 08:27 Medical Screening Exam initiated gb1 17:42 ED course: I reviewed the patient CT scan soft tissue neck did not show any signs of gb1 abscess, there is also no active bleeding to the posterior pharyngeal space. No signs of active infection and no POSTER on exam.. Patient is requesting Dilaudid for her sore throat. Labs are within normal limits and at this time she will be discharged home to follow-up routinely with her outpatient reported surgeon of record.. 09/09 08:30 Order name: CBC w/o diff gb1 09/09 08:30 Order name: BMP; Complete Time: 10:19 gb1 09/09 08:30 Order name: UAM; Complete Time: 10:19 gb1 09/09 08:30 Order name: PREGU; Complete Time: 10:19 gb1 09/09 10:13 Order name: CBC Smear Scan EDMS 09/09 08:50 Order name: Soft Tissue Neck Wo Contr; Complete Time: 09:04 EDMS Administered Medications: No medications were administered Disposition Summary: 09/09/24 10:25 Discharge Ordered Notes: Location: Home gb1 Condition: Stable gb1 Diagnosis - Other acute postprocedural pain gb1 Followup: gb1 - With: Radhika Jordan MD - When: - Reason: Recheck today's complaints, Re-evaluation by your physician Discharge Instructions: - Discharge Summary Sheet gb1 - Sore Throat gb1 - Pain Relief Before and After Surgery gb1 Forms: - Medication Reconciliation Form gb1 - Antibiotic Education gb1 - Prescription Opioid Use gb1 - Patient Portal Instructions gb1 - Leadership Thank You Letter gb1 Signatures: Dispatcher [employer] Brandi Chang RN RN ll1 Lisa Prince MD MD gb1 Corrections: (The following items were deleted from the chart) 08:30 08:30 CBC without Diff+H.LAB.BRZ ordered. EDMS EDMS 08:30 08:30 BASIC METABOLIC PANEL+C.LAB.BRZ ordered. EDMS EDMS 08:31 08:31 Urinalysis W/Microscopic+U.LAB.BRZ ordered. EDMS EDMS 08:31 08:31 Test, Urine+UC.LAB.BRZ ordered. EDMS EDMS 08:50 08:30 Soft Tissue Neck W/Contr+CT.RAD.BRZ ordered. EDMS EDMS
[2024-09-09 12:30] VITALS: BP 136/101; TEMP 97.8; O2SAT 97
[2024-09-09 13:44] LABS: Blood Morphology Comment NOT SEEN (NOT SEEN); Platelet Estimate ADEQ; White Blood Cell Scan OK (OK)
== END 2024-09-09 10:31 | disposition home or self-care (01) ==
LOC: ER 08:17
DX: G89.18 Other acute postprocedural pain (principal); Z98.890 Other specified postprocedural states
CPT/HCPCS: 36415; 70490; 80048; 81001; 81025; 85027

== ENCOUNTER 2024-09-19 07:44 | Emergency (ER) | payer OTHER ==
[2024-09-19] MEDS ORDERED: GABAPENTIN 300 MG CAP ONE (08:08)
[2024-09-19] MEDS ORDERED: ONDANSETRON 4 MG (ODT) TAB ONE (08:08)
[2024-09-19] MEDS ORDERED: ACETAMIN/CAFFEINE/BUTALB TAB PO ONE (08:08)
--- OUTSIDE RECORDS SUMMARY | 2024-09-19 08:09 | XMS REPORT | Continuity of Care Document ---
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 ONCE, 1 dose, On Sat03/10/24 at 1030, [place] [facility] pantoprazol e (PROTONIX) EC [...] 500 mg tablet 2023-05 00:00: 00 Yes [id number] 500mg Take 1 tablet by mouth 4 (four) times daily. [facility] tetracyclin e 500 mg capsule 2023-05 00:00: 00 Yes [id number] 500mg Take 1 capsule by mouth 4 (four) times daily. [facility] bismuth subsalicyla te 525 mg Tab 2023-05 00:00: 00 Yes [id number] 525mg Take 525 mg by mouth 4 (four) times daily. [facility] omeprazole 20 mg capsule 2023-05 00:00: 00 Yes [id number] 20mg Take 1 capsule by mouth in the morning and 1 capsule in the evening. [facility] ondansetron 4 mg disintegrat ing tablet 2023-05 00:00: 00 Yes [id number] 4mg Take 1 tablet by mouth every [...] N/V unresponsi ve to Ondansetro n [facility] ondansetron (ZOFRAN (PF)) injection 4 mg 2023-05 19:10: 57 03-05 22:06 :08 No 4mg 4 mg, Slow IV Push, Q6HPRN, Starting on Sat03/04/24 at 1410, Until Sat03/05/24 at 1706, Routine, Nausea and Vomiting (N/V) [facility] HYDROcodone -acetaminop hen (NORCO 5) tablet [...] dose, On Sat03/04/24 at 1115, [place] [facility] ondansetron (ZOFRAN (PF)) injection 4 mg 2023-05 16:15: 00 03-04 16:19 :00 No 4mg 4 mg, Slow IV Push, ONCE, 1 dose, On Sat03/04/24 at 1115, [place] [facility] morphine (2 mg/mL) injection 4 mg [...] 2023-05 00:00: 00 03-05 00:00 :00 No [id number] 525mg Take 525 mg by mouth 4 (four) times daily for 14 days. [facility] metroNIDAZO LE 500 mg tablet 2023-05 00:00: 00 03-05 00:00 :00 No [id number] 500mg Take 1 tablet by mouth 4 (four) times daily for 14 days. [facility] tetracyclin e 500 mg capsule 2023-05 00:00: 00 03-05 00:00 :00 No [id number] 500mg Take 1 capsule by mouth 4 (four) times daily for 14 days. [facility] omeprazole 20 mg capsule 2023-05 00:00: 00 03-05 00:00 :00 No [id number] 20mg Take 1 capsule by mouth in the morning and 1 capsule in the evening. Do all this for 14 days. [facility] pantoprazol e (PROTONIX) EC tablet 40 mg 2023-05 16:45: 00 02-26 23:59 :22 No 40mg 40 mg, Oral, BID, First dose (after last modificati on) on Kathie 02/27/24 at 1145, Until Discontinu ed, Routine [facility] lactated ringers IV infusion 2023-05 15:19: 00 02-26 15:26 :52 No IV Infusion, CONTINUOUS PRN, Starting on Kathie 02/27/24 at 1019, Until Kathie 02/27/24 at 1026, Routine, Intra-op [facility] simethicone (GAS RELIEF (SIMETHICON E)) 40 mg/0.6 mL drops 2023-05 14:57: 00 02-26 16:34 :28 No PRN, Starting on Kathie 02/27/24 at 0957, Until Kathie 02/27/24 at 1134, Routine, Intra-op [facility] PHENYLephri ne 1000 mcg/10 mL in 0.9% NaCl syringe 2023-05 14:50: 00 02-26 15:26 :52 No Intravenou s, ONCE INTRA PROCEDURE, Starting on Kathie 02/27/24 at 0950, Until Kathie 02/27/24 at 1026, Routine, Intra-op [facility] dexmedeTOMI Dine (PRECEDEX) injection 2023-05 14:27: 00 02-26 15:26 :52 No Intravenou s, ONCE INTRA PROCEDURE, Starting on Kathie 02/27/24 at 0927, Until Kathie 02/27/24 at 1026, Routine, Intra-op [facility] propofoL IV infusion 2023-05 14:26: 00 02-26 15:26 :52 No IV Infusion, ONCE INTRA PROCEDURE, Starting on Kathie 02/27/24 at 0926, Until Kathie 02/27/24 at 1026, Routine, Intra-op [facility] lidocaine 1% (XYLOCAINE) 100 mg/10 mL (1 %) injection 2023-05 14:26: 00 02-26 15:26 :52 No Intravenou s, ONCE INTRA PROCEDURE, Starting on Kathie 02/27/24 at 0926, Until Kathie 02/27/24 at 1026, Routine, Intra-op [facility] FENTanyl (PF) (SUBLIMAZE) injection 2023-05 14:26: 00 02-26 15:26 :52 No Intravenou s, ONCE INTRA PROCEDURE, Starting on Kathie 02/27/24 at 0926, Until Kathie 02/27/24 at 1026, Routine, Intra-op [facility] midazolam (VERSED) injection 2023-05 14:24: 00 02-26 15:26 :52 No IV Push, ONCE INTRA PROCEDURE, Starting on Kathie 02/27/24 at 0924, Until Kathie 02/27/24 at 1026, Routine, [facility]op [facility] NaCl 0.9% (NS) IV infusion 2023-05 14:22: 00 02-26 15:26 :52 No IV Infusion, CONTINUOUS PRN, Starting on Kathie 02/27/24 at 0922, Until Kathie 02/27/24 at 1026, Routine, Intra-op [facility] sodium phosphates (READY-TO-U SE ENEMA) 19-7 gram/118 mL enema 1 Enema 2023-05 10:00: 00 02-26 10:05 :00 No 1{enema } 1 Enema, Rectal, ONCE, 1 dose, On Kathie 02/27/24 at 0500, Routine [facility] polyethylen e glycol 3350 powder 17 g 2023-05 01:00: 00 02-26 21:59 :19 No 17g 17 g, Oral, BID, First dose (after last modificati on) on Sat02/26/24 at 2000, Until Discontinu ed, Routine [facility] ondansetron 4 mg disintegrat ing tablet 2023-05 00:00: 00 03-05 00:00 :00 No [id number] 4mg Take 1 tablet by mouth every 8 (eight) hours as needed for Nausea and Vomiting (N/V). [facility] pantoprazol e 40 mg EC tablet 2023-05 00:00: 00 03-05 00:00 :00 No [id number] 40mg Take 1 tablet by mouth in the morning and 1 tablet in the evening. [facility] amitriptyli ne 25 mg tablet 2023-05 00:00: 00 03-04 00:00 :00 No [id number] 25mg Take 1 tablet by mouth at bedtime. [facility] acetaminoph en-codeine 300-30 mg tablet 2023-05 00:00: 00 02-26 00:00 :00 No [id number] 1{tbl} Take 1 tablet by mouth every 4 (four) hours as needed for Pain (scale 7-10) for up to 7 days. Indication s: acute pain [facility] simethicone (GAS RELIEF (SIMETHICON E)) chewable tablet 80 mg 2023-05 23:00: 00 02-26 21:59 :19 No 80mg 80 mg, Oral, PC+HS, First dose on Sat02/26/24 at 1800, Until Discontinu ed, Routine [facility] morphine (2 mg/mL) injection 2 mg 2023-05 20:22: 36 02-26 21:59 :19 No 2mg 2 mg, Slow IV Push, Q4HPRN, Starting on Sat02/26/24 at 1522, Until Kathie 02/27/24 at 1659, Routine, Pain (scale 4-6) [facility] morphine (2 mg/mL) injection 4 mg 2023-05 20:22: 32 02-26 21:59 :19 No 4mg 4 mg, Slow IV Push, Q4HPRN, Starting on Sat02/26/24 at 1522, Until Sat02/27/24 at 1659, Routine, Pain (scale 7-10) [facility] LORazepam (ATIVAN) injection 0.5 mg 2023-05 18:39: 21 02-26 21:59 :19 No .5mg 0.5 mg, Slow IV Push, Q6HPRN, Starting on Sat02/26/24 at 1339, Until Sat02/27/24 at 1659, Routine, Anxiety [facility] bisacodyL (DULCOLAX) suppository 10 mg 2023-05 18:17: 00 02-25 18:47 :00 No 10mg 10 mg, Rectal, ONCE NOW, 1 dose, On Sat02/26/24 at 1330, Routine [facility] acetaminoph en (OFIRMEV) IV piggyback 1,000 mg 2023-05 15:30: 00 02-25 15:03 :00 No 1000mg 1,000 mg, IV Piggyback, at 400 mL/hr Administer over 15 Minutes, ONCE, 1 dose, On Sat02/26/24 at 1030, Routine, Is the patient strict NPO and unable to tolerate oral medication s? Yes [facility] bisacodyL (DULCOLAX) tablet 5 mg 2023-05 14:30: 00 02-26 21:59 :19 No 5mg 5 mg, Oral, DAILY, First dose on Sat02/26/24 at 0930, Until Discontinu ed, Routine [facility] amitriptyli ne (ELAVIL) tablet 25 mg 2023-05 02:00: 00 02-26 23:59 :22 No 25mg 25 mg, Oral, QHS, First dose on Sat02/25/24 at 2100, Until Discontinu ed, Routine [facility] morphine (2 mg/mL) injection 4 mg 2023-05 18:49: 53 02-25 14:28 :08 No 4mg 4 mg, Slow IV Push, Q4HPRN, Starting on Sat02/25/24 at 1349, Until Sat02/26/24 at 0928, Routine, [facility] (scale 7-10) [facility] ([facility]/mL[facility] 2 mg 2023-05 18:49: 15 02-25 14:28 :08 No 2mg 2 mg, Slow IV Push, Q4HPRN, Starting on Sat02/25/24 at 1349, Until Sat02/26/24 at 0928, Routine, Pain (scale 7-10) [facility] gadobenate dimeglumine (MULTIHANCE -10 mL) injection 9.08 mL 2023-05 17:30: 00 02-24 17:30 :00 No [id number] .2mL/kg 9.08 mL (0.2 mL/kg ?45.4 kg), Intravenou s, ONCE, 1 dose, On Sat02/25/24 at 1230, Routine [facility] LORazepam (ATIVAN) injection 1 mg 2023-05 17:00: 00 02-24 16:25 :00 No 1mg 1 mg, Slow IV Push, ONCE, 1 dose, On Sat02/25/24 at 1200, STAT [facility] polyethylen e glycol 3350 powder 17 g 2023-05 16:00: 00 02-25 14:24 :01 No 17g 17 g, Oral, DAILY, First dose on Sat02/25/24 at 1100, Until Discontinu ed, Routine [facility] lactated ringers [facility] infusion 1,000 mL 2023-05 13:15: 00 02-26 21:59 :19 No 1000mL at 125 mL/hr, 1,000 mL, IV Infusion, CONTINUOUS , Starting on Sat02/25/24 at 0815, Until Kathie 02/27/24 at 1659, Routine [facility] potassium chloride in water (KCL) 20 mEq/100 mL IV infusion 20 mEq 2023-05 13:00: 00 02-24 13:30 :00 No 20meq 20 mEq, IV Infusion, at 50 mL/hr Administer over 2 Hours, ONCE, 1 dose, On Sat02/25/24 at 0800, Routine [facility] melatonin (MELATIN) tablet 3 mg 2023-05 02:00: 00 02-26 21:59 :19 No 3mg 3 mg, Oral, QHS, First dose on Sat02/24/24 at 2100, Until Discontinu ed, Routine [facility] lactated ringers IV infusion 500 mL 2023-05 19:30: 00 02-24 09:54 :00 No 500mL at 999 mL/hr, 500 mL, IV Infusion, ONCE, 1 dose, On Sat02/24/24 at 1430, Routine [facility] Lidocaine (LIDOCARE) 4 % patch 1 Patch 2023-05 18:00: 00 02-24 05:15 :00 No 1{patch } 1 Patch, Topical, Administer over 12 Hours, ONCE, 1 dose, On Sat02/24/24 at 1300, Routine [facility] LORazepam (ATIVAN) injection 0.5 mg 2023-05 12:25: 30 02-25 18:39 :43 No .5mg 0.5 mg, Slow IV Push, Q6HPRN, Starting on Sat02/24/24 at 0725, Until Sat02/26/24 at 1339, Routine, Anxiety, Agitation [facility] diphenhydrA MINE (BENADRYL) injection 25 mg 2023-05 01:40: 29 02-23 14:54 :01 No 25mg 25 mg, Intravenou s, Q6HPRN, Starting on Sat02/23/24 at 2040, Until Sat02/24/24 at 0954, Routine, Nausea and Vomiting (N/V) [facility] LORazepam (ATIVAN) injection 0.5 mg 2023-05 01:39: 00 02-23 02:48 :00 No .5mg 0.5 mg, Slow IV Push, ONCE, 1 dose, On Sat02/23/24 at 2045, Routine [facility] diphenhydrA MINE (BENADRYL) injection 25 mg 2023-05 14:19: 13 02-23 01:14 :28 No 25mg 25 mg, Intravenou s, Q6HPRN, Starting on 02/23/24 at 0919, Until 02/23/24 at 2014, Routine, Nausea and Vomiting (N/V) [facility] ondansetron (ZOFRAN (PF)) injection [...] on Sat02/23/24 at 0700, Until Discontinu ed [facility] (porcine) injection 5,000 Units 2023-0513 01:00: [...] ONCE, 1 dose, On 02/22/24 at 1145, [facility] morphine (2 mg/mL) injection 4 mg 2023-05 16:00: 00 02-21 16:06 :00 No 4mg 4 mg, Slow IV Push, ONCE, 1 dose, On 02/22/24 at 1100, STAT [facility] famotidine (PEPCID (PF)) injection 20 mg 2023-05 15:00: 00 02-21 15:35 :00 No 20mg 20 mg, Slow IV Push, ONCE, 1 dose, On 02/22/24 at 1000, [facility] ondansetron (ZOFRAN (PF)) injection 4 mg 2023-05 15:00: 00 02-21 15:34 :00 No 4mg 4 mg, Slow IV Push, ONCE, 1 dose, On 02/22/24 at 1000, [facility] NaCl 0.9% (NS) bolus [...] 08-23 00:00: 00 11-22 04:59 :00 No [id number] 250mg Take 1 tablet by mouth in [...] 1 dose, On 05/19/23 at 1000, [place] [facility] iopamidol (ISOVUE 370-500 mL) injection 80 mL 05-19 15:50: 00 05-19 16:15 :00 No [id number] 80mL 80 mL, Intravenou s, ONCE, 1 dose, On 05/19/23 at 1015, Routine [facility] dicyclomine (BENTYL) tablet 20 mg 05-19 15:45: 00 05-19 16:09 :00 No 20mg 20 mg, Oral, ONCE, 1 dose, On 05/19/23 at 0945[facility] ([facility]AN (PF)) [facility] 4 mg 05-19 15:15: 00 05-19 15:50 :00 No 4mg 4 mg, Slow IV Push, ONCE, 1 dose, On 05/19/23 at 0915, [facility] maalox:diph enhydrAMINE :lidocaine 2 % viscous 1:1:1 ([facility] oral suspension 15 mL 05-19 15:15: 00 05-19 15:49 :00 No 15mL 15 mL, Oral, ONCE, 1 dose, On 05/19/23 at 0915, Routine [facility] famotidine (PEPCID (PF)) injection 20 mg 05-19 15:15: 00 05-19 15:51 :00 No 20mg 20 mg, Slow IV Push, ONCE, 1 dose, On 05/19/23 at 0915, [facility] ondansetron 4 mg disintegrat ing tablet 05-19 00:00: 00 02-26 00:00 :00 No [id number] 4mg Take 1 tablet by mouth every 8 (eight) hours as needed for Nausea and Vomiting (N/V). [facility] sucralfate 1 gram tablet 05-19 00:00: 00 06-19 05:59 :00 No [id number] 1g Take 1 tablet by mouth before meals and at bedtime for 30 days. [facility] pantoprazol e 40 mg EC tablet 05-19 00:00: 00 06-19 05:59 :00 No [id number] 40mg Take 1 tablet by mouth in the morning for 30 days. [facility] cefdinir 300 mg capsule 05-19 00:00: 00 05-27 05:59 :00 No [id number] 300mg Take 1 capsule by mouth every 12 (twelve) hours for 7 days. [facility] morpHINE (2 mg/mL) injection 2 mg 01-15 19:15: 00 01-15 18:49 :00 No 2mg 2 mg, Slow IV Push, ONCE, 1 dose, On Sat01/15/23 at 1415, Routine [facility] ondansetron (ZOFRAN) tablet 4 mg 01-15 18:15: 01-15 22:02 :00 No 4mg 4 mg, Oral, ONCE, 1 dose, On Sat01/15/23 at 1315, Routine [facility] ondansetron 4 mg tablet 01-15 00:00: 00 02-26 00:00 :00 No [id number] 4mg Take 1 tablet by mouth every 8 (eight) hours as needed for Nausea and Vomiting (N/V). [facility] HYDROcodone -acetaminop hen 5-325 mg tablet 01-15 00:00: 00 01-23 04:59 :00 No [id number] 1{tbl} Take 1 tablet by mouth every 4 (four) hours as needed for Pain (scale 4-6) for up to 7 days. Indication s: acute pain [facility] morpHINE (2 mg/mL) injection 2 mg 01-14 16:11: 23 01-15 11:49 :59 No 2mg 2 mg, Slow IV Push, Q4HPRN, Starting on Sat01/14/23 at 1111, Until Sat01/15/23 at 0649, Routine, Pain (scale 7-10) [facility] methocarbam oL (ROBAXIN) tablet 500 mg 01-14 13:00: 00 Yes 500mg 500 mg, Oral, QID, First dose on Sat01/14/23 at 0800, Until Discontinu ed, Routine [facility] celecoxib (CELEBREX) capsule 100 mg 01-14 13:00: 00 Yes 100mg 100 mg, Oral, BID MEALS, First dose on Sat01/14/23 at 0800, Until Discontinu ed, Routine [facility] gabapentin (NEURONTIN) capsule 300 mg 01-14 01:30: 00 Yes 300mg 300 mg, Oral, TID, First dose on Drums 01/13/23 at 2030, Until Discontinu ed, Routine [facility] acetaminoph en (TYLENOL) tablet 1,000 mg 01-14 01:30: 00 Yes 1000mg 1,000 mg, Oral, Q8H, First dose (after last modificati on) on Drums 01/13/23 at 2030, Until Discontinu ed, Routine [facility] scopolamine transdermal (TRANSDERM- SCOP) patch 1.5 mg 01-13 00:30: 00 Yes 1.5mg 1.5 mg, Topical, Administer over 72 Hours, Q72H, First dose on 01/12/23 at 1930, Until Discontinu ed, Routine [facility] enoxaparin (LOVENOX) injection 40 mg 01-12 22:00: 00 Yes 40mg 40 mg, Subcutaneo us, DAILY, First dose on 01/12/23 at 1700, Until Discontinu ed, Routine [facility] FENTanyl PF (SUBLIMAZE (PF)) injection 100 mcg 01-12 20:30: 00 01-12 20:30 :00 No [id number] 100ug 100 mcg, Slow IV Push, ONCE, 1 dose, On 01/12/23 at 1530, Routine [facility] proMETHazin e (PHENERGAN) 25 mg in NS 50 mL IV piggyback (CNR) 01-12 17:11: 31 01-15 14:12 :44 No 25mg 25 mg, IV Piggyback, at 200 mL/hr Administer over 15 Minutes, Q4HPRN, Starting on Sat01/12/23 at 1211, Until Tu01/15/23 at 0912, Routine, Nausea and Vomiting (N/V) [facility] piperacilli n-tazobacta m (ZOSYN) 3.375 [...] br>Duratio n of Therapy: 7 days [facility] pantoprazol e (PROTONIX) EC tablet 40 mg 01-12 14:00: 00 Yes 40mg 40 mg, Oral, DAILY, First dose on Sat01/12/23 at 0900, Until Discontinu ed, Routine [facility] KCL (KLOR-CON M20) tablet 40 mEq 01-12 09:30: 00 01-12 09:25 :00 No 40meq 40 mEq, Oral, ONCE, 1 dose, On Sat01/12/23 at 0430, Routine [facility] diphenhydrA MINE (BENADRYL) tablet 25 mg 01-12 08:31: 43 Yes 25mg 25 mg, Oral, QHSPRN, Starting on Sat01/12/23 at 0331, Until Discontinu ed, Routine, Itching, Sleep [facility] lactated ringers IV infusion 1,000 mL 01-12 08:15: 00 01-15 11:48 :29 No 1000mL at 50 mL/hr, 1,000 mL, IV Infusion, CONTINUOUS , Starting on Sat01/12/23 at 0315, Until Sat01/15/23 at 0648, Routine [facility] piperacilli n-tazobacta m (ZOSYN) 3.375 g in NaCl 0.9% (NS) 100 mL MINI-BAG 01-12 06:45: 00 01-12 08:43 :00 No 3.375g 3.375 g, IV Piggyback, ONCE, 1 dose, On 01/12/23 at 0145, Administer over 30 Minutes, 100 mL
Reas on for Anti-Infec tive: Documented Infection< br>Documen renata Infection Site: Abdominal< br>Duratio n of Therapy: 7 days [facility] lactated ringers IV infusion 1,000 mL 01-12 06:00: 00 01-12 08:13 :38 No 1000mL at 100 mL/hr, 1,000 mL, IV Infusion, CONTINUOUS , Starting on 01/12/23 at 0100, Until 01/12/23 at 0313, Routine [facility] morpHINE (4 mg/mL) injection 4 mg 01-12 05:49: 22 01-14 05:48 :22 No 4mg 4 mg, Slow IV Push, Q4HPRN, Starting on 01/12/23 at 0049, Until 01/14/23 at 0048, Routine, Pain (scale 7-10) [facility] HYDROcodone -acetaminop hen (NORCO 5) 5-325 mg tablet 1 tablet 01-12 05:49: 18 Yes 1{tbl} 1 tablet, Oral, Q4HPRN, Starting on 01/12/23 at 0049, Until Discontinu ed, Routine, Pain (scale 4-6) [facility] ondansetron (ZOFRAN (PF)) injection 4 mg 01-12 05:49: 11 01-15 17:31 :12 No 4mg 4 mg, Slow IV Push, Q6HPRN, Starting on 01/12/23 at 0049, Until 01/15/23 at 1231, Routine, Nausea and Vomiting (N/V) [facility] ondansetron (ZOFRAN (PF)) injection 4 mg 01-12 04:45: 00 01-12 04:45 :00 No 4mg 4 mg, Slow IV Push, ONCE, 1 dose, On Sat01/11/23 at 2345, [place] [facility] morpHINE (4 mg/mL) injection 4 mg 01-12 04:45: 00 01-12 04:45 :00 No 4mg 4 mg, Slow IV Push, ONCE, 1 dose, On Sat01/11/23 at 2345, STAT [facility] proMETHazin e (PHENERGAN) 25 mg in NS 50 mL IV piggyback (CNR) 01-12 04:45: 00 01-12 06:00 :00 No 25mg 25 mg, IV Piggyback, at 200 mL/hr Administer over 15 Minutes, ONCE, 1 dose, On Sat01/11/23 at 2345, [place] [facility] iopamidol (ISOVUE 370-500 mL) injection 80 mL 01-12 03:33: 00 01-12 03:25 :00 No [id number] 80mL 80 mL, Intravenou s, ONCE, 1 dose, On Sat01/11/23 at 2245, Routine [facility] maalox:diph enhydrAMINE :lidocaine 2 % viscous 1:1:1 ([facility]) oral suspension 15 mL 01-12 03:30: 00 01-12 03:07 :00 No 15mL 15 mL, Oral, ONCE, 1 dose, On Sat01/11/23 at 2230, Routine [facility] morpHINE (4 mg/mL) injection 4 mg 01-12 03:30: 00 01-12 03:05 :00 No 4mg 4 mg, Slow IV Push, ONCE, 1 dose, [facility]/11/23 at 2230[facility] 0.9% (NS) bolus infusion 1,000 mL 01-12 03:30: 00 01-12 03:04 :00 No 1000mL at 999 mL/hr, 1,000 mL, IV Infusion, ONCE, 1 dose, On Sat01/11/23 at 2230, [facility] ondansetron (ZOFRAN (PF)) injection 4 mg 01-12 03:00: 00 01-12 03:05 :00 No 4mg 4 mg, Slow IV Push, ONCE, 1 dose, On Sat01/11/23 at 2200, [facility] ibuprofen (IBU) tablet 600 mg 11-21 22:15: 00 11-21 21:44 :00 No 600mg 600 mg, Oral, ONCE, 1 dose, On Sat11/21/22 at 1715, [facility] butalbital- acetaminoph en-caff (ESGIC) 50-325-40 mg tablet 1 tablet 11-21 21:30: 00 11-21 21:39 :00 No 1{tbl} 1 tablet, Oral, ONCE, 1 dose, On Sat11/21/22 at 1630, [facility] ciprofloxac in HCl 500 mg [...] [facility] tiZANidine 4 mg tablet 2022-0 6-14 00:00: 00 02-26 00:00 :00 No 1{tbl} Take 1 tablet by mouth every 6 (six) hours as needed. [facility] traZODone 50 mg tablet 2022-0 6-12 00:00: 00 Yes 50mg Take 1 tablet by mouth at bedtime. [facility] traZODone 50 mg tablet 2022-0 6-12 00:00: 00 02-26 00:00 :00 No 1{tbl} Take 1 tablet by mouth at bedtime. [facility] hydrOXYzine 50 mg tablet 0 -23 00:00: 00 Yes 50mg Take 1 tablet by mouth every 6 (six) hours as needed. [facility] hydrOXYzine 50 mg tablet 0 23 00:00: 00 02-26 00:00 :00 No 1{tbl} Take 1 tablet by mouth every 6 (six) hours as needed. [facility] mirtazapine 15 mg tablet 2022-0 5-12 00:00: 00 02-26 00:00 :00 No 15mg Take 1 tablet by mouth at bedtime. [facility] meloxicam 15 mg tablet 0 5-09 00:00: 00 Yes 15mg Take 1 tablet by mouth in the morning. [facility] meloxicam 15 mg tablet 2022-0 5-09 [...] 1 dose, On Sat09/05/22 at 1230, [place] [facility] ondansetron (ZOFRAN (PF)) injection 4 mg 09-05 17:15: 00 09-05 17:23 :00 No 4mg 4 mg, Slow IV Push, ONCE, 1 dose, On Sat09/05/22 at 1215, [place] [facility] magnesium sulfate in [...] ONCE, 1 dose, [facility]05[facility]00[facility] tablet 09-05 00:00: 00 02-26 00:00 :00 No [id number] 25mg Take 1 tablet by mouth in the morning and 1 tablet in the evening. Take with meals. [facility] losartan 50 mg tablet 09-05 00:00: 00 02-26 00:00 :00 No [id number] 50mg Take 1 tablet by mouth in [...] enhydrAMINE :lidocaine 2 % viscous 1:1:1 ([facility]) oral suspension 15 mL 08-01 00:45: 00 08-01 00:44 :00 No 15mL 15 mL, Oral, ONCE, 1 dose, [facility] Sat07/31/22 at 1945[facility] (TORADOL) injection 15 mg 08-01 00:15: 00 08-01 00:44 :00 No 15mg 15 mg, Slow IV Push, ONCE, 1 dose, On Sat07/31/22 at 1915, Routine [facility] ondansetron (ZOFRAN (PF)) injection 4 mg 08-01 00:15: 00 08-01 00:46 :00 No 4mg 4 mg, Slow IV Push, ONCE, 1 dose, On Sat07/31/22 at 1915[facility] famotidine (PEPCID (PF)) injection 20 mg 08-01 00:15: 00 08-01 00:46 :00 No 20mg 20 mg, Slow IV Push, ONCE, 1 dose, On Sat07/31/22 at 1914, [facility] ondansetron 4 mg disintegrat ing tablet 07-31 00:00: 00 05-19 00:00 :00 No [id number] 4mg Take 1 tablet by mouth every 8 (eight) hours as needed for Nausea and Vomiting (N/V). [facility] sucralfate 1 gram tablet 07-31 00:00: 00 05-19 00:00 :00 No [id number] 1g Take 1 tablet by mouth before meals and at bedtime. [facility] pantoprazol e 40 mg EC tablet 07-31 00:00: 00 08-15 04:59 :00 No [id number] 40mg Take 1 tablet by mouth in [...] [facility] traMADoL 50 mg tablet -13 00:00: 00 02-26 00:00 :00 No 50mg Take 1 tablet by mouth. [facility] ibuprofen 600 mg tablet 3-05 00:00: 00 07-31 00:00 :00 No [id number] 600mg Take 1 tablet by mouth every 6 (six) hours as needed for Pain (scale 4-6). [facility] citalopram 10 mg tablet 06-29 00:00: 00 Yes 10mg Take 1 tablet by mouth in the morning. [facility] citalopram 10 mg tablet -17 00:00: 00 02-26 00:00 :00 No 1{tbl} Take 1 tablet by mouth in the morning. [facility] QUEtiapine 400 mg tablet 2-17 00:00: 00 02-26 00:00 :00 No [facility] gabapentin 600 mg tablet -17 00:00: 00 02-26 00:00 :00 No [facility] methylPREDN ISolone (MEDROL, ANABELA,) 4 mg tablets 06-23 00:00: 00 09-24 00:00 :00 No [id number] Take by mouth SEE-INSTRU CTIONS. follow package directions [facility] bromphenira mine-pseudo ephedrine-D M (BROMFED DM) 2-30-10 mg/5 mL syrup 06-23 00:00: 00 07-04 05:59 :00 No [id number] 5mL Take 5 mL by mouth 4 (four) times daily as needed for Cold symptoms for up to 10 days. [facility] methocarbam oL 750 mg tablet 06-23 00:00: 00 07-01 05:59 :00 No [id number] 750mg Take 1 tablet by mouth 4 (four) times daily for 7 days. [facility] magnesium sulfate in water 2 gram/50 mL (4 %) infusion 2 g 2021-05 21:00: 00 05-05 21:15 :00 No 2g 2 g, IV Piggyback, Administer over 15 Minutes, ONCE, 1 dose, On 05/05/22 at 1500, [place] [facility] butalbital- acetaminoph en-caff (ESGIC) 50-325-40 mg tablet 1 tablet 2021-05 20:15: 00 05-05 20:56 :00 No 1{tbl} 1 tablet, Oral, ONCE, 1 dose, On 05/05/22 at 1415, [place] [facility] dexamethaso ne sod [...] 1 dose, On 05/05/22 at 1400, [place] [facility] diphenhydrA MINE (BENADRYL) [...] 2021-05 00:00: 00 09-24 00:00 :00 No [id number] 1{tbl} Take 1 tablet by mouth every [...] 2021-05 00:00: 00 05-04 05:59 :00 No [id number] 500mg Take 1 capsule by mouth in [...] 2021-05 00:00: 00 02-26 00:00 :00 No [id number] 120mg inject 120 mg under the skin [...] dose, On 04/07/22 at 1830, Routine [facility] diphenhydrA MINE (BENADRYL) injection 12.5 mg 2021-05 23:45: 00 04-07 23:46 :00 No 12.5mg 12.5 mg, Slow IV Push, ONCE, 1 dose, On 04/07/22 at 1745, STAT [facility] butorphanol (STADOL) injection 1 mg 2021-05 23:15: 00 04-07 22:48 :00 No 1mg 1 mg, IV Push, ONCE, 1 dose, On 04/07/22 at 1715, Routine [facility] NaCl 0.9% (NS) bolus infusion 1,000 mL 2021-05 23:15: 00 04-07 23:49 :00 No 1000mL at 999 mL/hr, 1,000 mL, IV Infusion, ONCE, 1 dose, On 04/07/22 at 1715, [place] [facility] ketorolac (TORADOL) injection 15 mg 2021-05 19:30: 00 03-24 18:45 :00 No 15mg 15 mg, Slow IV Push, ONCE, 1 dose, On 03/24/22 at 1330, Routine [facility] butorphanol (STADOL) injection 1 mg 2021-05 18:00: 00 03-24 17:26 :00 No 1mg 1 mg, Intravenou s, ONCE, 1 dose, On 03/24/22 at 1200, Routine [facility] proMETHazin e (PHENERGAN) 25 mg in NaCl 0.9% (NS) 50 mL IV piggyback 2021-05 18:00: 00 03-24 18:13 :00 No 25mg 25 mg, IV Piggyback, ONCE, 1 dose, On 03/24/22 at 1200, [place] [facility] butorphanol (STADOL) injection 1 mg 2022-1 1-12 17:15: 00 03-24 16:26 :00 No 1mg 1 mg, IV Push, ONCE, 1 dose, On 03/24/22 at 1115, Routine [facility] diphenhydrA MINE (BENADRYL) injection 25 mg 2021-05 15:30: 00 03-24 15:40 :00 No 25mg 25 mg, Slow IV Push, ONCE, 1 dose, On 03/24/22 at 0930, STAT [facility] ondansetron (ZOFRAN (PF)) [...] 0815, STAT [facility] ALBUTEROL INHALE 2022-1 1-12 07:58: 13 03-24 00:00 :00 No [facility] rizatriptan 10 mg tablet 2021-05 00:00: 00 02-26 00:00 :00 No [id number] 10mg Take 1 tablet by mouth as needed for Migraine. May repeat in 2 hours if needed [facility] Butalbital- Acetaminoph en-Caff (FIORICET) 50-300-40 mg per capsule 2021-05 00:00: 00 02-26 00:00 :00 No [id number] 1{capsu le} Take 1 capsule by mouth [...] 1 dose, On Sat03/15/22 at 1030, Routine [facility] proMETHazin e (PHENERGAN) tablet 25 mg 2021-05 14:45: 00 03-15 14:55 :00 No 25mg 25 mg, Oral, ONCE, 1 dose, On Sat03/15/22 at 0945, [place] [facility] FENTanyl PF (SUBLIMAZE (PF)) injection 50 mcg 2021-05 14:45: 00 03-15 13:58 :00 No 50ug 50 mcg, Slow IV Push, ONCE, 1 dose, On Sat22 at 0945, Routine [facility] ondansetron (ZOFRAN (PF)) injection 4 mg 2021-05 14:00: 00 03-15 13:58 :00 No 4mg 4 mg, Slow IV Push, ONCE, 1 dose, On [place] 03/15/22 at 0900, [place] [facility] carvediloL 25 mg tablet 2021-05 00:00: 00 09-05 00:00 :00 No [id number] 25mg Take 1 tablet by mouth in the morning and 1 tablet in the evening. Take with meals. [facility] ondansetron 4 mg disintegrat ing tablet 2021-05 00:00: 00 04-07 00:00 :00 No [id number] 4mg Take 1 tablet by mouth every 8 (eight) hours as needed for Nausea and Vomiting (N/V). [facility] ketorolac 10 mg tablet 2021-05 00:00: 00 04-07 00:00 :00 No [id number] 10mg Take 1 tablet by mouth every 6 (six) hours as needed for Pain (scale 7-10). [facility] proMETHazin e 25 mg tablet 2021-05 00:00: 00 04-07 00:00 :00 No [id number] 25mg Take 1 tablet by mouth every 6 (six) hours as needed for N/V unresponsi ve to Ondansetro n. [facility] cephALEXin 500 mg capsule 2021-05 00:00: 00 03-19 05:59 :00 No [id number] 500mg Take 1 capsule by mouth 4 (four) times daily for 3 days. [facility] predniSONE 20 mg tablet 2021-05 00:00: 00 03-15 04:59 :00 No [id number] 20mg Take 1 tablet by mouth in the morning for 2 days. [facility] methocarbam oL (ROBAXIN) tablet 500 mg 2021-05 16:45: 00 03-11 17:08 :00 No 500mg 500 mg, Oral, ONCE, 1 dose, On 03/11/22 at 1200, [facility] dexamethaso ne sod phos PF injection 10 mg 2021-05 16:00: 00 03-11 16:00 :00 No 10mg 10 mg, Slow IV Push, ONCE, 1 dose, On 03/11/22 at 1100, 1 mL [facility] diphenhydrA MINE (BENADRYL) injection 25 mg 2021-05 15:46: 00 03-11 16:00 :00 No 25mg 25 mg, Slow IV Push, ONCE, 1 dose, On Sat03/11/22 at 1100, STAT [facility] NaCl 0.9% (NS) IV infusion 1,000 mL 2021-05 15:45: 00 03-11 16:04 :00 No 1000mL at 999 mL/hr, Intravenou s, ONCE, 1 dose, On Sat03/11/22 at 1045, Routine [facility] butalbital- acetaminoph en-caff (ESGIC) 50-325-40 mg tablet 1 tablet 2021-05 15:00: 00 03-11 15:05 :00 No 1{tbl} 1 tablet, Oral, ONCE, 1 dose, On 03/11/22 at 1015, [facility] ketorolac (TORADOL) injection 15 mg 2021-05 14:45: 00 03-11 15:05 :00 No 15mg 15 mg, Slow IV Push, ONCE, 1 dose, On 03/11/22 at 0945, [facility] proMETHazin e (PHENERGAN) 12.5 mg in NaCl 0.9% (NS) 50 mL IV piggyback 2021-05 14:45: 00 03-11 15:04 :00 No 12.5mg 12.5 mg, IV Piggyback, ONCE, 1 dose, On 03/11/22 at 0945, [facility] proMETHazin e 25 mg tablet 2021-05 030 00:00: 00 07-31 00:00 :00 No [id number] 25mg Take 1 tablet by mouth every 6 (six) hours as needed for Nausea and Vomiting (N/V). [facility] methocarbam oL 500 mg tablet 2021-05 00:00: 00 04-07 00:00 :00 No [id number] 500mg Take 1 tablet by mouth 3 (three) times daily as needed for Pain (scale 7-10). [facility] topiramate 25 mg tablet 2021-05 00:00: 00 02-26 00:00 :00 No [id number] 100mg Take 4 tablets by mouth in [...] 2021-05 00:00: 00 02-26 00:00 :00 No [id number] 2{puff} Inhale 2 Puffs every 6 (six) [...] [facility] benzonatate 200 mg capsule 2022-1 0-18 00:00: 00 03-07 04:59 :00 No [id number] 200mg Take 1 capsule by mouth 3 (three) times daily as needed for Cough for up to 7 days. [facility] butalbital- acetaminoph en-caff (ESGIC) 50-325-40 mg tablet 1 tablet 2021-05 0 08:15: 00 02-21 08:09 :00 No 1{tbl} 1 tablet, Oral, ONCE, 1 dose, On Sat02/21/22 at 0315, [facility] butorphanol (STADOL) injection 1 mg 2021-05 08:15: 00 02-21 07:28 :00 No 1mg 1 mg, IV Push, ONCE, 1 dose, On Sat02/21/22 at 0315, Routine [facility] NaCl 0.9% (NS) bolus infusion 1,000 mL 2021-05 07:15: 00 02-21 08:40 :00 No 1000mL at 999 mL/hr, 1,000 mL, IV Infusion, ONCE, 1 dose, On Sat02/21/22 at 0215, [facility] proMETHazin e (PHENERGAN) 12.5 mg in NaCl 0.9% (NS) 50 mL IV piggyback 2021-05 06:30: 00 02-21 06:38 :00 No 12.5mg 12.5 mg, IV Piggyback, ONCE, 1 dose, On Sat02/21/22 at 0130, [facility] dexamethaso ne sod phos PF injection 10 mg 2021-05 012 06:30: 00 02-21 06:38 :00 No 10mg 10 mg, Slow IV Push, ONCE, 1 dose, On Sat02/21/22 at 0130, 1 mL [facility] ketorolac (TORADOL) injection 15 mg 2021-05 012 06:30: 00 02-21 06:38 :00 No 15mg 15 mg, Slow IV Push, ONCE, 1 dose, On Sat02/21/22 at 0130, [place] [facility] diphenhydrA MINE (BENADRYL) injection 25 mg 2021-05 06:30: 00 02-21 06:38 :00 No 25mg 25 mg, Slow IV Push, ONCE, 1 dose, On Sat02/21/22 at 0130, STAT [facility] FENTanyl PF (SUBLIMAZE (PF)) injection 50 mcg 2021-05 20:30: 00 02-18 19:44 :00 No 50ug 50 mcg, Slow IV Push, ONCE, 1 dose, On 02/18/22 at 1530, Routine [facility] ketorolac (TORADOL) injection 30 mg 2021-05 20:15: 00 02-18 20:09 :00 No 30mg 30 mg, Slow IV Push, ONCE, 1 dose, On 02/18/22 at 1515, [facility] iopamidol (ISOVUE 370-500 mL) injection 60 mL 2021-05 19:30: 00 02-18 17:30 :00 No [id number] 60mL 60 mL, Intravenou s, ONCE, 1 dose, On 02/18/22 at 1430, Routine [facility] proMETHazin e (PHENERGAN) 12.5 mg in NaCl 0.9% (NS) 50 mL IV piggyback 2021-05 18:15: 00 02-18 18:19 :00 No 12.5mg 12.5 mg, IV Piggyback, ONCE, 1 dose, On 02/18/22 at 1315, [place] [facility] FENTanyl PF (SUBLIMAZE (PF)) injection 50 mcg 2021-05 18:00: 00 02-18 17:26 :00 No 50ug 50 mcg, Slow IV Push, ONCE, 1 dose, On 02/18/22 at 1300, Routine [facility] ondansetron (ZOFRAN (PF)) injection 4 mg 2021-05 17:15: 00 02-18 17:27 :00 No 4mg 4 mg, Slow IV Push, ONCE, 1 dose, On [place] 02/18/22 at 1215, [facility] morpHINE (2 mg/mL) injection 4 mg 01-18 15:15: 00 01-18 14:49 :00 No 4mg 4 mg, Slow IV Push, ONCE, 1 dose, On [facility] 01/18/22 at 1015, [facility] ondansetron (ZOFRAN (PF)) injection 4 mg 01-18 13:30: 00 01-18 13:33 :00 No 4mg 4 mg, Slow IV Push, ONCE, 1 dose, On [facility] 01/18/22 at 0830, [facility] morpHINE (4 mg/mL) injection 4 mg 01-18 13:30: 00 01-18 13:34 :00 No 4mg 4 mg, Slow IV Push, ONCE, 1 dose, On [facility] 01/18/22 at 0830, [facility] morpHINE (4 mg/mL) injection 4 mg 01-18 12:30: 00 01-18 11:39 :00 No 4mg 4 mg, Slow IV Push, ONCE, 1 dose, On [facility] 01/18/22 at 0730, [facility] famotidine (PEPCID (PF)) injection 20 mg 01-18 11:30: 00 01-18 10:52 :00 No 20mg 20 mg, Slow IV Push, ONCE, 1 dose, On [facility] 01/18/22 at 0630, [facility] ondansetron (ZOFRAN (PF)) injection 4 mg 01-18 11:30: 00 01-18 10:52 :00 No 4mg 4 mg, Slow IV Push, ONCE, 1 dose, On [facility] 01/18/22 at 0630, [facility] iodixanoL (VISIPAQUE 270-150 mL) injection 80 mL 01-18 11:21: 00 01-18 11:15 :00 No [id number] 80mL 80 mL, Intravenou s, ONCE, 1 dose, On [place] 01/18/22 at 0630, Routine [facility] NaCl 0.9% (NS) bolus infusion 1,000 mL 01-18 11:15: 00 01-18 12:59 :00 No 1000mL at 999 mL/hr, 1,000 mL, IV Infusion, ONCE, 1 dose, On [place] 01/18/22 at 0615, [place] [facility] morpHINE (4 mg/mL) injection [...] 01-18 00:00: 00 02-27 00:00 :00 No [id number] 4mg Take 1 tablet by mouth every 8 (eight) hours as needed for Nausea and Vomiting (N/V). [facility] ibuprofen 600 mg tablet 01-18 00:00: 00 02-27 00:00 :00 No [id number] 600mg Take 1 tablet by mouth every 6 (six) hours as needed for Pain (scale 4-6). [facility] predniSONE 20 mg tablet 01-16 00:00: 00 01-24 04:59 :00 No [id number] 40mg Take 2 tablets by mouth in the morning for 7 days. [facility] morpHINE (4 mg/mL) injection 4 mg 01-15 16:15: 00 01-15 15:28 :00 No 4mg 4 mg, Slow IV Push, ONCE, 1 dose, On Sat01/15/22 at 1115, [place] [facility] proMETHazin e (PHENERGAN) 12.5 mg in NaCl 0.9% (NS) 50 mL IV piggyback 01-15 15:30: 00 01-15 15:28 :00 No 12.5mg 12.5 mg, IV Piggyback, ONCE, 1 dose, On Sat01/15/22 at 1030, [facility] NaCl 0.9% (NS) bolus infusion 1,000 mL 01-15 15:00: 00 01-15 15:38 :00 No 1000mL at 999 mL/hr, 1,000 mL, IV Infusion, ONCE, 1 dose, On Sat01/15/22 at 1000, [facility] morpHINE (4 mg/mL) injection 4 mg 01-15 15:00: 00 01-15 14:37 :00 No 4mg 4 mg, Slow IV Push, ONCE, 1 dose, On Sat01/15/22 at 1000, [facility] ondansetron (ZOFRAN (PF)) injection 8 mg 01-15 14:15: 00 01-15 14:37 :00 No 8mg 8 mg, Slow IV Push, ONCE, 1 dose, On Sat01/15/22 at 0915, [facility] dexamethaso ne sod phos PF injection 10 mg 01-15 14:15: 00 01-15 14:37 :00 No 10mg 10 mg, Slow IV Push, ONCE, 1 dose, On Sat01/15/22 at 0915, 1 mL [facility] proMETHazin e 25 mg tablet 01-15 00:00: 00 02-27 00:00 :00 No [id number] 25mg Take 1 tablet by mouth every [...] 1 dose, On Sat01/08/22 at 1945, [place] [facility] diphenhydrA MINE (BENADRYL) [...] 01-08 00:00: 00 04-07 00:00 :00 No [id number] 650mg Take 1 tablet by mouth every 8 (eight) hours as needed for Pain. [facility] ondansetron 4 mg disintegrat ing tablet 01-08 00:00: 00 02-27 00:00 :00 No [id number] 4mg Take 1 tablet by mouth every 8 (eight) hours as needed for Nausea and Vomiting (N/V). [facility] ketorolac 10 mg tablet 01-08 00:00: 00 02-27 00:00 :00 No [id number] 10mg Take 1 tablet by mouth every 6 (six) hours as needed for Pain (scale 4-6) or Pain (scale 7-10). [facility] metaxalone (SKELAXIN) 800 mg tablet 8 00:00: 00 02-27 00:00 :00 No [id number] 800mg Take 1 tablet by mouth in [...] 12-12 00:00: 00 02-27 00:00 :00 No [id number] 50mg Take 1 tablet by mouth at bedtime. [facility] SERTraline (ZOLOFT) 50 mg tablet 12-12 00:00: 00 02-27 00:00 :00 No [id number] 50mg Take 1 tablet by mouth in the morning. [facility] sulfamethox azole-trime thoprim (BACTRIM DS) 800-160 mg per tablet 12-12 00:00: 00 12-16 04:59 :00 No [id number] 1{tbl} Take 1 tablet by mouth in the morning and 1 tablet in the evening. Do all this for 3 days. [facility] ibuprofen 600 mg tablet 7-15 00:00: 00 02-27 00:00 :00 No [id number] 600mg Take 1 tablet by mouth every [...] 11-18 00:00: 00 03-24 00:00 :00 No [id number] 5mL Take 5 mL by mouth 4 (four) times daily as needed for Congestion /Allergies or Cough. [facility] naproxen 500 mg tablet 11-18 00:00: 00 02-27 00:00 :00 No [id number] 500mg Take 1 tablet by mouth every 8 (eight) hours as needed for Pain (scale 4-6). [facility] cyclobenzap rine 10 mg tablet 11-18 00:00: 00 02-27 00:00 :00 No [id number] 10mg Take 1 tablet by mouth at bedtime as needed for Muscle Spasms. [facility] ibuprofen 100 mg/5 mL oral suspension 10-25 00:00: 00 02-27 00:00 :00 No [id number] 605mg Take 30.25 mL by mouth every 6 (six) hours as needed for Pain (scale 4-6) or Temp > 38.5 C. [facility] acetaminoph en 160 mg/5 mL liquid 10-25 00:00: 00 12-12 00:00 :00 No [id number] 608mg Take 19 mL by mouth every 6 (six) hours as needed for Fever. [facility] DULoxetine 60 mg capsule 10-06 00:00: 00 02-27 00:00 :00 No [facility] traZODone 50 mg tablet 10-06 00:00: 00 12-12 00:00 :00 No [facility] mometasone 50 mcg/actuati on nasal spray 09-28 00:00: 00 02-27 00:00 :00 No [id number] 1{spray } Use 1 [place] in each nostril 2 (two) times daily. [facility] cetirizine (ZYRTEC) 10 mg tablet 09-25 00:00: 00 02-27 00:00 :00 No [id number] 10mg Take 1 tablet by mouth daily. [facility] DULoxetine 30 mg capsule 09-18 00:00: 00 02-27 00:00 :00 No [facility] gabapentin 300 mg capsule 09-18 00:00: 00 02-27 00:00 :00 No [facility] ondansetron 4 mg tablet 09-18 00:00: 00 02-27 00:00 :00 No [facility] amLODIPine 5 mg tablet -22 00:00: 00 02-27 00:00 :00 No 5mg Take 5 mg by mouth. [facility] buPROPion XL 150 mg 24 hr tablet 4-20 00:00: 00 02-27 00:00 :00 No 150mg Take 150 mg by mouth. [facility] proMETHazin e 25 mg tablet 4-05 00:00: 00 09-12 00:00 :00 No [id number] 25mg Take 1 tablet by mouth every 6 (six) hours as needed for Nausea and Vomiting (N/V). [facility] traMADoL 50 mg tablet 4-05 00:00: 00 09-12 00:00 :00 No [id number] 50mg Take 1 tablet by mouth every 6 (six) hours as needed (pain). Indication s: acute pain [facility] cyclobenzap rine 10 mg tablet 3-28 00:00: 00 08-22 04:59 :00 No [id number] 10mg Take 1 tablet by mouth 3 (three) times daily for 14 days. [facility] ibuprofen 800 mg tablet 3 00:00: 00 08-22 04:59 :00 No [id number] 800mg Take 1 tablet by mouth every 6 (six) hours as needed for Pain (scale 1-3) for up to 14 days. [facility] diclofenac 75 mg EC tablet 08-01 00:00: 00 09-12 00:00 :00 No [facility] orphenadrin e 100 mg SR tablet 08-01 00:00: 09-12 00:00 :00 No [facility] divalproex 125 mg EC tablet 07-21 00:00: 00 09-12 00:00 :00 No [id number] 125mg Take 1 tablet by mouth every 12 (twelve) hours. [facility] divalproex Sprinkles 125 mg SPRINKLE capsule 3 00:00: 00 09-12 00:00 :00 No [facility] ibuprofen 600 mg tablet 307 00:00: 00 08-01 04:59 :00 No [id number] 600mg Take 1 tablet by mouth every 6 (six) hours as needed for Temp > 38.5 C for up to 14 days. [facility] acetaminoph en-codeine 300-30 mg tablet 1-30 00:00: 00 09-12 00:00 :00 No TAKE 1 TABLET BY MOUTH EVERY 4 HOURS NEEDED FOR PAIN FOR 2 DAYS [facility] fluticasone propionate 110 mcg/actuati on inhaler - 00:00: 00 09-28 00:00 :00 No [id number] 2{puff} Inhale 2 Puffs every 12 (twelve) hours. [facility] benzonatate (TESSALON PERLES) 100 mg capsule 1-13 00:00: 00 09-25 00:00 :00 No [id number] 100mg Take 1 capsule by mouth every [...] 2020-05 00:00: 00 09-12 00:00 :00 No [facility] methocarbam oL (ROBAXIN) 500 mg tablet 2020-05 00:00: 00 05-25 00:00 :00 No [id number] 500mg Take 1 tablet by mouth every 6 (six) hours as needed (MUSCLE SPASM). [facility] vitamin B-12 (VITAMIN B-12) 500 mcg tablet 2020-05 00:00: 00 09-12 00:00 :00 No [id number] 500ug Take 1 tablet by mouth daily. [facility] methylPREDN ISolone 4 mg tablets 2020-05 00:00: 00 05-25 00:00 :00 No [id number] Follow package directions [facility] fluticasone propion-chel meteroL 115-21 mcg/actuati on inhaler 02-09 00:00: 00 05-25 00:00 :00 No [id number] 2{puff} Inhale 2 Puffs 2 (two) times daily. Rinse mouth after each use. [facility] albuterol 2.5 mg /3 mL (0.083 %) nebulizer solution 02-09 00:00: 00 05-25 00:00 :00 No [id number] 2.5mg Inhale 3 mL every 6 (six) hours as needed for Wheezing or Shortness of Breath. [facility] methocarbam oL (ROBAXIN) 500 mg tablet 02-09 00:00: 00 05-02 00:00 :00 No [id number] 500mg Take 1 tablet by mouth every 6 (six) hours as needed (MUSCLE SPASM). [facility] bromphenira mine-pseudo ephedrine-D M (BROMFED DM) 2-30-10 mg/5 mL syrup 01-31 00:00: 00 02-09 00:00 :00 No [id number] 5mL Take 5 mL by mouth 4 (four) times daily as needed for Cough. [facility] methylPREDN ISolone (MEDROL, ANABELA,) 4 mg tablets 01-20 00:00: 00 02-09 00:00 :00 No [id number] Take by mouth SEE-INSTRU CTIONS. follow package directions [facility] albuterol 90 mcg/actuati on inhaler 01-12 00:00: 00 05-25 00:00 :00 No [id number] 2{puff} Inhale 2 Puffs every 4 (four) hours as needed for Wheezing or Shortness of Breath. [facility] benzonatate 100 mg capsule 01-12 00:00: 00 02-19 00:00 :00 No [id number] 100mg Take 1 capsule by mouth 3 [...] [facility] FLUoxetine 40 mg capsule 2021-0 7-12 00:00: 00 12-26 00:00 :00 No [facility] traZODone 100 mg tablet 7-12 00:00: 00 12-26 00:00 :00 No [facility] dicyclomine 20 mg tablet 6-10 00:00: 00 12-26 00:00 :00 No [id number] 20mg Take 1 tablet by mouth 4 (four) times daily. [facility] proMETHazin e 25 mg tablet 6-10 00:00: 00 12-26 00:00 :00 No [id number] 25mg Take 1 tablet by mouth every 6 (six) hours as needed for Nausea and Vomiting (N/V). [facility] acetaminoph en-codeine 300-30 mg tablet 6-05 00:00: 00 12-26 00:00 :00 No TAKE 2 TABLETS BY MOUTH EVERY 6 HOURS NEEDED FOR PAIN [facility] oxybutynin (DITROPAN XL) 10 mg 24 hr tablet 5-30 00:00: 00 12-26 00:00 :00 No [id number] 10mg Take 1 tablet by mouth daily. [facility] ondansetron (ZOFRAN ODT) 4 mg disintegrat ing tablet 5-30 00:00: 00 12-26 00:00 :00 No [id number] 4mg Take 1 tablet by mouth every 8 (eight) hours as needed for Nausea and Vomiting (N/V). [facility] ciprofloxac in HCl 500 mg tablet 5-30 00:00: 00 11-22 00:00 :00 No [id number] 500mg Take 1 tablet by mouth 2 (two) times daily. [facility] predniSONE 20 mg tablet 5-25 00:00: 00 11-22 00:00 :00 No [id number] 20mg Take 1 tablet by mouth daily. Days 1-2: 3 pills (60 mg). Days 3-4: 2 pills (40 mg). Days 5-6: 1 pill (20 mg). Days 7-8: 1/2 pill (10 mg). Then stop [facility] mupirocin 2 % ointment 09-29 00:00: 00 12-26 00:00 :00 No [id number] Apply to both nostrils at bedtime [facility] naproxen sodium (ANAPROX DS) 550 mg tablet 09-28 00:00: 00 12-26 00:00 :00 No [id number] 550mg Take 1 tablet by mouth 2 (two) times daily with meals. [facility] losartan 25 mg tablet 09-16 00:00: 00 12-22 00:00 :00 No 25mg Take 1 tablet by mouth 2 (two) times daily. [facility] nadoloL 20 mg tablet 09-16 00:00: 00 12-22 00:00 :00 No [id number] Please take Nadalol 40 mg QAM [facility] LOESTRIN FE (LOESTRIN FE 1/20) 1 mg-20 mcg (21)/75 mg (7) tablet 09-06 00:00: 00 02-09 00:00 :00 No [id number] 1{tbl} Take 1 tablet by mouth daily. [facility] FLUoxetine 20 mg capsule 09-06 00:00: 00 11-22 00:00 :00 No [id number] 20mg Take 1 capsule by mouth daily. [facility] traZODone 50 mg tablet 09-06 00:00: 00 11-22 00:00 :00 No [id number] 50mg Take 1 tablet by mouth at bedtime. [facility] nadoloL 20 mg tablet 08-31 00:00: 00 09-16 00:00 :00 No [id number] Please take Nadalol 40 mg QAM and 20 mg QPM [facility] methocarbam oL (ROBAXIN) 500 mg tablet 08-18 00:00: 09-30 00:00 :00 No [id number] 500mg Take 1 tablet by mouth every 6 (six) hours as needed (MUSCLE SPASM). [facility] traMADoL (ULTRAM) 50 mg tablet 08 00:00: 00 09-30 00:00 :00 No [id number] 50mg Take 1 tablet by mouth every 6 (six) hours as needed for Pain (scale 7-10). Indication s: acute pain [facility] ibuprofen 800 mg tablet 4-04 00:00: 00 11-22 00:00 :00 No TAKE 1 TABLET BY MOUTH EVERY 12 HOURS NEEDED FOR PAIN [facility] ondansetron (ZOFRAN ODT) 4 mg disintegrat ing tablet 08-01 00:00: 00 09-30 00:00 :00 No [id number] 4mg Take 1 tablet by mouth every 8 (eight) hours as needed for Nausea and Vomiting (N/V). [facility] ketorolac 10 mg tablet 08-01 00:00: 00 09-30 00:00 :00 No [id number] 10mg Take 1 tablet by mouth every 6 (six) hours as needed for Pain (scale 4-6). [facility] ciprofloxac in HCl 250 mg tablet 08-01 00:00: 00 09-30 00:00 :00 No [id number] 250mg Take 1 tablet by mouth 2 (two) times daily. [facility] lidocaine 5 % (700 mg/patch) patch 12 00:00: 00 09-30 00:00 :00 No [id number] 1{patch } Apply 1 Patch to area(s) every 24 (twenty-fo ur) hours as needed for Localized pain. [facility] topiramate 25 mg tablet 05-17 00:00: 00 11-22 00:00 :00 No 25mg Take 1 tablet by mouth 2 (two) times daily. [facility] 25 mg 24 hr tablet 2019-05 00:00: 06-15 00:00 :00 No [id number] 12.5mg Take 0.5 tablets by mouth 2 (two) times daily for 90 days. [facility] FLUoxetine 20 mg capsule 2019-05 00:00: 00 09-06 00:00 :00 No 20mg Take 20 mg by mouth daily. [facility] norgestimat e-ethinyl estradiol 0.25-35 mg-mcg per tablet 11-17 00:00: 04-15 00:00 :00 No [id number] 1{tbl} Take 1 tablet by mouth daily. [facility] buPROPion XL (WELLBUTRIN XL) 150 mg 24 hr tablet 08-12 00:00: 01-04 00:00 :00 No [id number] 150mg Take 1 tablet by mouth daily. [facility] acetaminoph en 325 mg tablet 07-22 00:0001-04 00:00 :00 No [id number] 650mg Take 2 tablets by mouth every 6 (six) hours as needed for Pain (scale 1-3) or Pain (scale 4-6). [facility] vitamin w/FA tablet 07-22 00:00: 01-04 00:00 :00 No [id number] 1{tbl} Take 1 tablet by mouth daily. [facility] docusate calcium 240 mg capsule 07-22 00:00: 01-04 00:00 :00 No [id number] 240mg Take 1 capsule by mouth once daily as needed for Constipati on. [facility] ferrous sulfate 325 mg (65 mg iron) tablet 07-22 00:00: 01-04 00:00 :00 No [id number] 325mg Take 1 tablet by mouth 2 (two) times daily. [facility] ibuprofen 600 mg tablet 07-22 00:00: 01-04 00:00 :00 No [id number] 600mg Take 1 tablet by mouth every 6 (six) hours as needed (Pain). Take with food or milk. [facility] ALBUTEROL 90 mcg/actuati on inhaler 1-14 00:00: 00 05-01 00:00 :00 No [id number] 103 INHALE 2 PUFFS BY MOUTH EVERY 6 HOURS NEEDED FOR WHEEZING FOR SHORTNESS OF BREATH [facility] buPROPion SR (WELLBUTRIN SR) 150 mg SR tablet 05-21 00:00: 00 01-04 00:00 :00 No [id number] 150mg Take 1 tablet by mouth 2 (two) times daily. [facility] busPIRone 10 mg tablet 05-21 00:00: 00 01-04 00:00 :00 No [id number] 109 10mg Take 1 tablet by mouth 3 (three) times daily. [facility] Immunizations Ordered Immunization Name Filled Immunization Name Date Status Comments Source Influenza Virus Vaccine Quad IM, Preserv and ABX Free 6 MO-64 YRS 2022-02-27 00:00:00 Completed [facility] Influenza Virus Vaccine Quad IM, Preserv and ABX Free 6 MO-64 YRS 2022-02-27 00:00:00 Completed [facility] Influenza Virus Vaccine Quad IM, Preserv and ABX Free 6 MO-64 YRS 2022-02-27 00:00:00 Completed [facility] Influenza Virus Vaccine Quad IM, Preserv and ABX Free 6 MO-64 YRS 2022-02-27 00:00:00 Completed [facility] Influenza Virus Vaccine Quad IM, Preserv and ABX Free 6 MO-64 YRS 2022-02-27 00:00:00 Completed [facility] Influenza Virus Vaccine Quad IM, Preserv and ABX Free 6 MO-64 YRS 2022-02-27 00:00:00 Completed [facility] Influenza Virus Vaccine Quad IM, Preserv and ABX Free 6 MO-64 YRS 2022-02-27 00:00:00 Completed [facility] Influenza Virus Vaccine Quad IM, Preserv and ABX Free 6 MO-64 YRS 2022-02-27 00:00:00 Completed [facility] Influenza Virus Vaccine Quad IM, Preserv and ABX Free 6 MO-64 YRS 2022-02-27 00:00:00 Completed [facility] Influenza Virus Vaccine Quad IM, Preserv and ABX Free 6 MO-64 YRS 2022-02-27 00:00:00 Completed [facility] Influenza Virus Vaccine Quad IM, Preserv and ABX Free 6 MO-64 YRS 2022-02-27 00:00:00 Completed [facility] Influenza Virus Vaccine Quad IM, Preserv and ABX Free 6 MO-64 YRS 2022-02-27 00:00:00 Completed [facility] Influenza Virus Vaccine Quad IM, Preserv and ABX Free 6 MO-64 YRS 2022-02-27 00:00:00 Completed [facility] Influenza Virus Vaccine Quad IM, Preserv and ABX Free 6 MO-64 YRS 2022-02-27 00:00:00 Completed [facility] Influenza Virus Vaccine Quad IM, Preserv and ABX Free 6 MO-64 YRS 2022-02-27 00:00:00 Completed [facility] Influenza Virus Vaccine Quad IM, Preserv and ABX Free 6 MO-64 YRS 2022-02-27 00:00:00 Completed [facility] Influenza Virus Vaccine Quad IM, Preserv and ABX Free 6 MO-64 YRS 2022-02-27 00:00:00 Completed [facility] Influenza Virus Vaccine Quad IM, Preserv and ABX Free 6 MO-64 YRS 2022-02-27 00:00:00 Completed [facility] Influenza Virus Vaccine Quad IM, Preserv and ABX Free 6 MO-64 YRS 2022-02-27 00:00:00 Completed [facility] Influenza Virus Vaccine Quad IM, Preserv and ABX Free 6 MO-64 YRS 2022-02-27 00:00:00 Completed [facility] Influenza Virus Vaccine Quad IM, Preserv and ABX Free 6 MO-64 YRS 2022-02-27 00:00:00 Completed [facility] Influenza Virus Vaccine Quad IM, Preserv and ABX Free 6 MO-64 YRS 2022-02-27 00:00:00 Completed [facility] Influenza Virus Vaccine Quad IM, Preserv and ABX Free 6 MO-64 YRS 2022-02-27 00:00:00 Completed [facility] Influenza Virus Vaccine Quad IM, Preserv and ABX Free 6 MO-64 YRS 2022-02-27 00:00:00 Completed [facility] Influenza Virus Vaccine Quad IM, Preserv and ABX Free 6 MO-64 YRS 2022-02-27 00:00:00 Completed [facility] Influenza Virus Vaccine Quad IM, Preserv and ABX Free 6 MO-64 YRS 2022-02-27 00:00:00 Completed [facility] Influenza Virus Vaccine Quad IM, Preserv and ABX Free 6 MO-64 YRS 2022-02-27 00:00:00 Completed [facility] Influenza Virus Vaccine Quad IM, Preserv and ABX Free 6 MO-64 YRS 2022-02-27 00:00:00 Completed [facility] Influenza Virus Vaccine Quad IM, Preserv and ABX Free 6 MO-64 YRS 2022-02-27 00:00:00 Completed [facility] Influenza Virus Vaccine Quad IM, Preserv and ABX Free 6 MO-64 YRS 2022-02-27 00:00:00 Completed [facility] Influenza Virus Vaccine Quad IM, Preserv and ABX Free 6 MO-64 YRS 2022-02-27 00:00:00 Completed [facility] Influenza Virus Vaccine Quad IM, Preserv and ABX Free 6 MO-64 YRS 2022-02-27 00:00:00 Completed [facility] Influenza Virus Vaccine Quad IM, Preserv and ABX Free 6 MO-64 YRS 2022-02-27 00:00:00 Completed [facility] Influenza Virus Vaccine Quad IM, Preserv and ABX Free 6 MO-64 YRS 2022-02-27 00:00:00 Completed [facility] Influenza Virus Vaccine Quad IM, Preserv and ABX Free 6 MO-64 YRS 2022-02-27 00:00:00 Completed [facility] Influenza Virus Vaccine Quad IM, Preserv and ABX Free 6 MO-64 YRS 2022-02-27 00:00:00 Completed [facility] Influenza Virus Vaccine Quad IM, Preserv and ABX Free 6 MO-64 YRS 2022-02-27 00:00:00 Completed [facility] Influenza Virus Vaccine Quad IM, Preserv and ABX Free 6 MO-64 YRS 2022-02-27 00:00:00 Completed [facility] Influenza Virus Vaccine Quad IM, Preserv and ABX Free 6 MO-64 YRS 2022-02-27 00:00:00 Completed [facility] Influenza Virus Vaccine Quad IM, Preserv and ABX Free 6 MO-64 YRS 2022-02-27 00:00:00 Completed [facility] Influenza Virus Vaccine Quad IM, Preserv and ABX Free 6 MO-64 YRS 2022-02-27 00:00:00 Completed [facility] Influenza Virus Vaccine Quad IM, Preserv and ABX Free 6 MO-64 YRS (FLUCELVAX) 2022-02-27 00:00:00 Completed [facility] Influenza Virus Vaccine Quad IM, Preserv and ABX Free 6 MO-64 YRS (FLUCELVAX) 2022-02-27 00:00:00 Completed [facility] Influenza Virus Vaccine Quad IM, Preserv and ABX Free 6 MO-64 YRS (FLUCELVAX) 2022-02-27 00:00:00 Completed [facility] Influenza Virus Vaccine Quad .5 mL IM 6+ MO 2022-02-21 00:00:00 Completed [facility] Influenza Virus Vaccine Quad .5 mL IM 6+ MO 2022-02-21 00:00:00 Completed [facility] Influenza Virus Vaccine Quad .5 mL IM 6+ MO 2022-02-21 00:00:00 Completed [facility] Influenza Virus Vaccine Quad .5 mL IM 6+ MO 2022-02-21 00:00:00 Completed [facility] Influenza Virus Vaccine Quad .5 mL IM 6+ MO 2022-02-21 00:00:00 Completed [facility] Influenza Virus Vaccine Quad .5 mL IM 6+ MO 2022-02-21 00:00:00 Completed [facility] Influenza Virus Vaccine Quad .5 mL IM 6+ MO 2022-02-21 00:00:00 Completed [facility] Influenza Virus Vaccine Quad .5 mL IM 6+ MO 2022-02-21 00:00:00 Completed [facility] Influenza Virus Vaccine Quad .5 mL IM 6+ MO 2022-02-21 00:00:00 Completed [facility] Influenza Virus Vaccine Quad .5 mL IM 6+ MO 2022-02-21 00:00:00 Completed [facility] Influenza Virus Vaccine Quad .5 mL IM 6+ MO 2022-02-21 00:00:00 Completed [facility] Influenza Virus Vaccine Quad .5 mL IM 6+ MO 2022-02-21 00:00:00 Completed [facility] Influenza Virus Vaccine Quad .5 mL IM 6+ MO (FLUZONE/FLULAVAL/F LUARIX) 2022-02-21 00:00:00 Completed [facility] Influenza Virus Vaccine Quad .5 mL IM 6+ MO (FLUZONE/FLULAVAL/F LUARIX) 2022-02-21 00:00:00 Completed [facility] Influenza Virus Vaccine Quad .5 mL IM 6+ MO (FLUZONE/FLULAVAL/F LUARIX) 2022-02-21 00:00:00 Completed [facility] Influenza Virus Vaccine 2021-06-11 00:00:00 Completed [facility] Influenza Virus Vaccine 2021-06-11 00:00:00 Completed [facility] Influenza Virus Vaccine 2021-06-11 00:00:00 Completed [facility] Influenza Virus Vaccine 2021-06-11 00:00:00 Completed [facility] Influenza Virus Vaccine 2021-06-11 00:00:00 Completed [facility] Influenza Virus Vaccine 2021-06-11 00:00:00 Completed [facility] Influenza Virus Vaccine 2021-06-11 00:00:00 Completed [facility] Influenza Virus Vaccine 2021-06-11 00:00:00 Completed [facility] Influenza Virus Vaccine 2021-06-11 00:00:00 Completed [facility] Influenza Virus Vaccine 2021-06-11 00:00:00 Completed [facility] Influenza Virus Vaccine 2021-06-11 00:00:00 Completed [facility] Influenza Virus Vaccine 2021-06-11 00:00:00 Completed [facility] Influenza Virus Vaccine 2021-06-11 00:00:00 Completed [facility] Influenza Virus Vaccine 2021-06-11 00:00:00 Completed [facility] Influenza Virus Vaccine 2021-06-11 00:00:00 Completed [facility] Influenza Virus Vaccine 2021-06-11 00:00:00 Completed [facility] Influenza Virus Vaccine 2021-06-11 00:00:00 Completed [facility] Influenza Virus Vaccine 2021-06-11 00:00:00 Completed [facility] Influenza Virus Vaccine 2021-06-11 00:00:00 Completed [facility] Influenza Virus Vaccine 2021-06-11 00:00:00 Completed [facility] Influenza Virus Vaccine 2021-06-11 00:00:00 Completed [facility] Influenza Virus Vaccine 2021-06-11 00:00:00 Completed [facility] Influenza Virus Vaccine 2021-06-11 00:00:00 Completed [facility] Influenza Virus Vaccine 2021-06-11 00:00:00 Completed [facility] Influenza Virus Vaccine 2021-06-11 00:00:00 Completed [facility] Influenza Virus Vaccine 2021-06-11 00:00:00 Completed [facility] Influenza Virus Vaccine 2021-06-11 00:00:00 Completed [facility] Influenza Virus Vaccine 2021-06-11 00:00:00 Completed [facility] Influenza Virus Vaccine 2021-06-11 00:00:00 Completed [facility] Influenza Virus Vaccine 2021-06-11 00:00:00 Completed [facility] Influenza Virus Vaccine 2021-06-11 00:00:00 Completed [facility] Influenza Virus Vaccine 2021-06-11 00:00:00 Completed [facility] Influenza Virus Vaccine 2021-06-11 00:00:00 Completed [facility] Influenza Virus Vaccine 2021-06-11 00:00:00 Completed [facility] Influenza Virus Vaccine 2021-06-11 00:00:00 Completed [facility] Influenza Virus Vaccine 2021-06-11 00:00:00 Completed [facility] Influenza Virus Vaccine 2021-06-11 00:00:00 Completed [facility] Influenza Virus Vaccine 2021-06-11 00:00:00 Completed [facility] Influenza Virus Vaccine 2021-06-11 00:00:00 Completed [facility] Influenza Virus Vaccine 2021-06-11 00:00:00 Completed [facility] Influenza Virus Vaccine 2021-06-11 00:00:00 Completed [facility] Influenza Virus Vaccine Quad .5 mL IM 6+ MO 2021-06-11 00:00:00 Completed [facility] Influenza Virus Vaccine 2021-06-11 00:00:00 Completed [facility] Influenza Virus Vaccine Quad .5 mL IM 6+ MO 2021-06-11 00:00:00 Completed [facility] Influenza Virus Vaccine 2021-06-11 00:00:00 Completed [facility] Influenza Virus Vaccine Quad .5 mL IM 6+ MO 2021-06-11 00:00:00 Completed [facility] Influenza Virus Vaccine 2021-06-11 00:00:00 Completed [facility] Influenza Virus Vaccine Quad .5 mL IM 6+ MO 2021-06-11 00:00:00 Completed [facility] Influenza Virus Vaccine 2021-06-11 00:00:00 Completed [facility] Influenza Virus Vaccine Quad .5 mL IM 6+ MO 2021-06-11 00:00:00 Completed [facility] Influenza Virus Vaccine 2021-06-11 00:00:00 Completed [facility] Influenza Virus Vaccine Quad .5 mL IM 6+ MO 2021-06-11 00:00:00 Completed [facility] Influenza Virus Vaccine 2021-06-11 00:00:00 Completed [facility] Influenza Virus Vaccine Quad .5 mL IM 6+ MO 2021-06-11 00:00:00 Completed [facility] Influenza Virus Vaccine 2021-06-11 00:00:00 Completed [facility] Influenza Virus Vaccine Quad .5 mL IM 6+ MO 2021-06-11 00:00:00 Completed [facility] Influenza Virus Vaccine 2021-06-11 00:00:00 Completed [facility] Influenza Virus Vaccine Quad .5 mL IM 6+ MO 2021-06-11 00:00:00 Completed [facility] Influenza Virus Vaccine 2021-06-11 00:00:00 Completed [facility] Influenza Virus Vaccine Quad .5 mL IM 6+ MO 2021-06-11 00:00:00 Completed [facility] Influenza Virus Vaccine 2021-06-11 00:00:00 Completed [facility] Influenza Virus Vaccine Quad .5 mL IM 6+ MO 2021-06-11 00:00:00 Completed [facility] Influenza Virus Vaccine 2021-06-11 00:00:00 Completed [facility] Influenza Virus Vaccine Quad .5 mL IM 6+ MO 2021-06-11 00:00:00 Completed [facility] Influenza Virus Vaccine 2021-06-11 00:00:00 Completed [facility] Influenza Virus Vaccine Quad .5 mL IM 6+ MO (FLUZONE/FLULAVAL/F LUARIX) 2021-06-11 00:00:00 Completed [facility] Influenza Virus Vaccine 2021-06-11 00:00:00 Completed [facility] Influenza Virus Vaccine Quad .5 mL IM 6+ MO (FLUZONE/FLULAVAL/F LUARIX) 2021-06-11 00:00:00 Completed [facility] Influenza Virus Vaccine 2021-06-11 00:00:00 Completed [facility] Influenza Virus Vaccine Quad .5 mL IM 6+ MO (FLUZONE/FLULAVAL/F LUARIX) 2021-06-11 00:00:00 Completed [facility] Influenza Virus Vaccine 2020-05-19 00:00:00 Completed [facility] Influenza Virus Vaccine 2020-05-19 00:00:00 Completed [facility] Influenza Virus Vaccine 2020-05-19 00:00:00 Completed [facility] Influenza Virus Vaccine 2020-05-19 00:00:00 Completed [facility] Influenza Virus Vaccine 2020-05-19 00:00:00 Completed [facility] Influenza Virus Vaccine 2020-05-19 00:00:00 Completed [facility] Influenza Virus Vaccine 2020-05-19 00:00:00 Completed [facility] Influenza Virus Vaccine 2020-05-19 00:00:00 Completed [facility] Influenza Virus Vaccine 2020-05-19 00:00:00 Completed [facility] Influenza Virus Vaccine 2020-05-19 00:00:00 Completed [facility] Influenza Virus Vaccine 2020-05-19 00:00:00 Completed [facility] Influenza Virus Vaccine 2020-05-19 00:00:00 Completed [facility] Influenza Virus Vaccine 2020-05-19 00:00:00 Completed [facility] Influenza Virus Vaccine 2020-05-19 00:00:00 Completed [facility] Influenza Virus Vaccine 2020-05-19 00:00:00 Completed [facility] Influenza Virus Vaccine 2020-05-19 00:00:00 Completed [facility] Influenza Virus Vaccine 2020-05-19 00:00:00 Completed [facility] Influenza Virus Vaccine 2020-05-19 00:00:00 Completed [facility] Influenza Virus Vaccine 2020-05-19 00:00:00 Completed [facility] Influenza Virus Vaccine 2020-05-19 00:00:00 Completed [facility] Influenza Virus Vaccine 2020-05-19 00:00:00 Completed [facility] Influenza Virus Vaccine 2020-05-19 00:00:00 Completed [facility] Influenza Virus Vaccine 2020-05-19 00:00:00 Completed [facility] Influenza Virus Vaccine 2020-05-19 00:00:00 Completed [facility] Influenza Virus Vaccine 2020-05-19 00:00:00 Completed [facility] Influenza Virus Vaccine 2020-05-19 00:00:00 Completed [facility] Influenza Virus Vaccine 2020-05-19 00:00:00 Completed [facility] Influenza Virus Vaccine 2020-05-19 00:00:00 Completed [facility] Influenza Virus Vaccine 2020-05-19 00:00:00 Completed [facility] Influenza Virus Vaccine 2020-05-19 00:00:00 Completed [facility] Influenza Virus Vaccine 2020-05-19 00:00:00 Completed [facility] Influenza Virus Vaccine 2020-05-19 00:00:00 Completed [facility] Influenza Virus Vaccine 2020-05-19 00:00:00 Completed [facility] Influenza Virus Vaccine 2020-05-19 00:00:00 Completed [facility] Influenza Virus Vaccine 2020-05-19 00:00:00 Completed [facility] Influenza Virus Vaccine 2020-05-19 00:00:00 Completed [facility] Influenza Virus Vaccine 2020-05-19 00:00:00 Completed [facility] Influenza Virus Vaccine 2020-05-19 00:00:00 Completed [facility] Influenza Virus Vaccine 2020-05-19 00:00:00 Completed [facility] Influenza Virus Vaccine 2020-05-19 00:00:00 Completed [facility] Influenza Virus Vaccine 2020-05-19 00:00:00 Completed [facility] Influenza Virus Vaccine 2020-05-19 00:00:00 Completed [facility] Influenza Virus Vaccine 2020-05-19 00:00:00 Completed [facility] Influenza Virus Vaccine 2020-05-19 00:00:00 Completed [facility] Influenza Virus Vaccine 2020-05-19 00:00:00 Completed [facility] Influenza Virus Vaccine 2020-05-19 00:00:00 Completed [facility] Influenza Virus Vaccine 2020-05-19 00:00:00 Completed [facility] Influenza Virus Vaccine 2020-05-19 00:00:00 Completed [facility] Influenza Virus Vaccine 2020-05-19 00:00:00 Completed [facility] Influenza Virus Vaccine 2020-05-19 00:00:00 Completed [facility] Influenza Virus Vaccine 2020-05-19 00:00:00 Completed [facility] Influenza Virus Vaccine 2020-05-19 00:00:00 Completed [facility] Influenza Virus Vaccine 2020-05-19 00:00:00 Completed [facility] Influenza Virus Vaccine 2020-05-19 00:00:00 Completed [facility] Influenza Virus Vaccine 2020-05-19 00:00:00 Completed [facility] Influenza Virus Vaccine Recomb Quad IM, Preserv and ABX Free 18-64 YRS 2020-05-16 00:00:00 Completed [facility] Influenza Virus Vaccine Recomb Quad IM, Preserv and ABX Free 18-64 YRS 2020-05-16 00:00:00 Completed [facility] Influenza Virus Vaccine Recomb Quad IM, Preserv and ABX Free 18-64 YRS 2020-05-16 00:00:00 Completed [facility] Influenza Virus Vaccine Recomb Quad IM, Preserv and ABX Free 18-64 YRS 2020-05-16 00:00:00 Completed [facility] Influenza Virus Vaccine Recomb Quad IM, Preserv and ABX Free 18-64 YRS 2020-05-16 00:00:00 Completed [facility] Influenza Virus Vaccine Recomb Quad IM, Preserv and ABX Free 18-64 YRS 2020-05-16 00:00:00 Completed [facility] Influenza Virus Vaccine Recomb Quad IM, Preserv and ABX Free 18-64 YRS 2020-05-16 00:00:00 Completed [facility] Influenza Virus Vaccine Recomb Quad IM, Preserv and ABX Free 18-64 YRS 2020-05-16 00:00:00 Completed [facility] Influenza Virus Vaccine Recomb Quad IM, Preserv and ABX Free 18-64 YRS 2020-05-16 00:00:00 Completed [facility] Influenza Virus Vaccine Recomb Quad IM, Preserv and ABX Free 18-64 YRS 2020-05-16 00:00:00 Completed [facility] Influenza Virus Vaccine Recomb Quad IM, Preserv and ABX Free 18-64 YRS 2020-05-16 00:00:00 Completed [facility] Influenza Virus Vaccine Recomb Quad IM, Preserv and ABX Free 18-64 YRS 2020-05-16 00:00:00 Completed [facility] Influenza Virus Vaccine Recomb Quad IM, Preserv and ABX Free 18-64 YRS 2020-05-16 00:00:00 Completed [facility] Influenza Virus Vaccine Recomb Quad IM, Preserv and ABX Free 18-64 YRS 2020-05-16 00:00:00 Completed [facility] Influenza Virus Vaccine Recomb Quad IM, Preserv and ABX Free 18-64 YRS 2020-05-16 00:00:00 Completed [facility] Influenza Virus Vaccine Recomb Quad IM, Preserv and ABX Free 18-64 YRS 2020-05-16 00:00:00 Completed [facility] Influenza Virus Vaccine Recomb Quad IM, Preserv and ABX Free 18-64 YRS 2020-05-16 00:00:00 Completed [facility] Influenza Virus Vaccine Recomb Quad IM, Preserv and ABX Free 18-64 YRS 2020-05-16 00:00:00 Completed [facility] Influenza Virus Vaccine Recomb Quad IM, Preserv and ABX Free 18-64 YRS 2020-05-16 00:00:00 Completed [facility] Influenza Virus Vaccine Recomb Quad IM, Preserv and ABX Free 18-64 YRS 2020-05-16 00:00:00 Completed [facility] Influenza Virus Vaccine Recomb Quad IM, Preserv and ABX Free 18-64 YRS 2020-05-16 00:00:00 Completed [facility] Influenza Virus Vaccine Recomb Quad IM, Preserv and ABX Free 18-64 YRS 2020-05-16 00:00:00 Completed [facility] Influenza Virus Vaccine Recomb Quad IM, Preserv and ABX Free 18-64 YRS 2020-05-16 00:00:00 Completed [facility] Influenza Virus Vaccine Recomb Quad IM, Preserv and ABX Free 18-64 YRS 2020-05-16 00:00:00 Completed [facility] Influenza Virus Vaccine Recomb Quad IM, Preserv and ABX Free 18-64 YRS 2020-05-16 00:00:00 Completed [facility] Influenza Virus Vaccine Recomb Quad IM, Preserv and ABX Free 18-64 YRS 2020-05-16 00:00:00 Completed [facility] Influenza Virus Vaccine Recomb Quad IM, Preserv and ABX Free 18-64 YRS 2020-05-16 00:00:00 Completed [facility] Influenza Virus Vaccine Recomb Quad IM, Preserv and ABX Free 18-64 YRS 2020-05-16 00:00:00 Completed [facility] Influenza Virus Vaccine Recomb Quad IM, Preserv and ABX Free 18-64 YRS 2020-05-16 00:00:00 Completed [facility] Influenza Virus Vaccine Recomb Quad IM, Preserv and ABX Free 18-64 YRS 2020-05-16 00:00:00 Completed [facility] Influenza Virus Vaccine Recomb Quad IM, Preserv and ABX Free 18-64 YRS 2020-05-16 00:00:00 Completed [facility] Influenza Virus Vaccine Recomb Quad IM, Preserv and ABX Free 18-64 YRS 2020-05-16 00:00:00 Completed [facility] Influenza Virus Vaccine Recomb Quad IM, Preserv and ABX Free 18-64 YRS 2020-05-16 00:00:00 Completed [facility] Influenza Virus Vaccine Recomb Quad IM, Preserv and ABX Free 18-64 YRS 2020-05-16 00:00:00 Completed [facility] Influenza Virus Vaccine Recomb Quad IM, Preserv and ABX Free 18-64 YRS 2020-05-16 00:00:00 Completed [facility] Influenza Virus Vaccine Recomb Quad IM, Preserv and ABX Free 18-64 YRS 2020-05-16 00:00:00 Completed [facility] Influenza Virus Vaccine Recomb Quad IM, Preserv and ABX Free 18-64 YRS 2020-05-16 00:00:00 Completed [facility] Influenza Virus Vaccine Recomb Quad IM, Preserv and ABX Free 18-64 YRS 2020-05-16 00:00:00 Completed [facility] Influenza Virus Vaccine Recomb Quad IM, Preserv and ABX Free 18-64 YRS 2020-05-16 00:00:00 Completed [facility] Influenza Virus Vaccine Recomb Quad IM, Preserv and ABX Free 18-64 YRS 2020-05-16 00:00:00 Completed [facility] Influenza Virus Vaccine Recomb Quad IM, Preserv and ABX Free 18-64 YRS 2020-05-16 00:00:00 Completed [facility] Influenza Virus Vaccine Recomb Quad IM, Preserv and ABX Free 18-64 YRS 2020-05-16 00:00:00 Completed [facility] Influenza Virus Vaccine Recomb Quad IM, Preserv and ABX Free 18-64 YRS 2020-05-16 00:00:00 Completed [facility] Influenza Virus Vaccine Recomb Quad IM, Preserv and ABX Free 18-64 YRS 2020-05-16 00:00:00 Completed [facility] Influenza Virus Vaccine Recomb Quad IM, Preserv and ABX Free 18-64 YRS 2020-05-16 00:00:00 Completed [facility] Influenza Virus Vaccine Recomb Quad IM, Preserv and ABX Free 18-64 YRS 2020-05-16 00:00:00 Completed [facility] Influenza Virus Vaccine Recomb Quad IM, Preserv and ABX Free 18-64 YRS 2020-05-16 00:00:00 Completed [facility] Influenza Virus Vaccine Recomb Quad IM, Preserv and ABX Free 18-64 YRS 2020-05-16 00:00:00 Completed [facility] Influenza Virus Vaccine Recomb Quad IM, Preserv and ABX Free 18-64 YRS 2020-05-16 00:00:00 Completed [facility] Influenza Virus Vaccine Recomb Quad IM, Preserv and ABX Free 18-64 YRS 2020-05-16 00:00:00 Completed [facility] Influenza Virus Vaccine Recomb Quad IM, Preserv and ABX Free 18-64 YRS 2020-05-16 00:00:00 Completed [facility] Influenza Virus Vaccine Recomb Quad IM, Preserv and ABX Free 18-64 YRS 2020-05-16 00:00:00 Completed [facility] Influenza Virus Vaccine Recomb Quad IM, Preserv and ABX Free 18-64 YRS 2020-05-16 00:00:00 Completed [facility] Influenza Virus Vaccine Recomb Quad IM, Preserv and ABX Free 18-64 YRS 2020-05-16 00:00:00 Completed [facility] Influenza Virus Vaccine Recomb Quad IM, Preserv and ABX Free 18-64 YRS 2020-05-16 00:00:00 Completed [facility] TDAP (ADACEL) VACCINE 2019-05-21 00:00:00 Completed [facility] TDAP (ADACEL) VACCINE 2019-05-21 00:00:00 Completed [facility] TDAP (ADACEL) VACCINE 2019-05-21 00:00:00 Completed [facility] TDAP (ADACEL) VACCINE 2019-05-21 00:00:00 Completed [facility] TDAP (ADACEL) VACCINE 2019-05-21 00:00:00 Completed [facility] TDAP (ADACEL) VACCINE 2019-05-21 00:00:00 Completed [facility] TDAP (ADACEL) VACCINE 2019-05-21 00:00:00 Completed [facility] TDAP (ADACEL) VACCINE 2019-05-21 00:00:00 Completed [facility] TDAP (ADACEL) VACCINE 2019-05-21 00:00:00 Completed [facility] TDAP (ADACEL) VACCINE 2019-05-21 00:00:00 Completed [facility] TDAP (ADACEL) VACCINE 2019-05-21 00:00:00 Completed [facility] TDAP (ADACEL) VACCINE 2019-05-21 00:00:00 Completed [facility] TDAP (ADACEL) VACCINE 2019-05-21 00:00:00 Completed [facility] TDAP (ADACEL) VACCINE 2019-05-21 00:00:00 Completed [facility] TDAP (ADACEL) VACCINE 2019-05-21 00:00:00 Completed [facility] TDAP (ADACEL) VACCINE 2019-05-21 00:00:00 Completed [facility] TDAP (ADACEL) VACCINE 2019-05-21 00:00:00 Completed [facility] TDAP (ADACEL) VACCINE 2019-05-21 00:00:00 Completed [facility] TDAP (ADACEL) VACCINE 2019-05-21 00:00:00 Completed [facility] TDAP (ADACEL) VACCINE 2019-05-21 00:00:00 Completed [facility] TDAP (ADACEL) VACCINE 2019-05-21 00:00:00 Completed [facility] TDAP (ADACEL) VACCINE 2019-05-21 00:00:00 Completed [facility] TDAP (ADACEL) VACCINE 2019-05-21 00:00:00 Completed [facility] TDAP (ADACEL) VACCINE 2019-05-21 00:00:00 Completed [facility] TDAP (ADACEL) VACCINE 2019-05-21 00:00:00 Completed [facility] TDAP (ADACEL) VACCINE 2019-05-21 00:00:00 Completed [facility] TDAP (ADACEL) VACCINE 2019-05-21 00:00:00 Completed [facility] TDAP (ADACEL) VACCINE 2019-05-21 00:00:00 Completed [facility] TDAP (ADACEL) VACCINE 2019-05-21 00:00:00 Completed [facility] TDAP (ADACEL) VACCINE 2019-05-21 00:00:00 Completed [facility] TDAP (ADACEL) VACCINE 2019-05-21 00:00:00 Completed [facility] TDAP (ADACEL) VACCINE 2019-05-21 00:00:00 Completed [facility] TDAP (ADACEL) VACCINE 2019-05-21 00:00:00 Completed [facility] TDAP (ADACEL) VACCINE 2019-05-21 00:00:00 Completed [facility] TDAP (ADACEL) VACCINE 2019-05-21 00:00:00 Completed [facility] TDAP (ADACEL) VACCINE 2019-05-21 00:00:00 Completed [facility] TDAP (ADACEL) VACCINE 2019-05-21 00:00:00 Completed [facility] TDAP (ADACEL) VACCINE 2019-05-21 00:00:00 Completed [facility] TDAP (ADACEL) VACCINE 2019-05-21 00:00:00 Completed [facility] TDAP (ADACEL) VACCINE 2019-05-21 00:00:00 Completed [facility] TDAP (ADACEL) VACCINE 2019-05-21 00:00:00 Completed [facility] TDAP (ADACEL) VACCINE 2019-05-21 00:00:00 Completed [facility] TDAP (ADACEL) VACCINE 2019-05-21 00:00:00 Completed [facility] TDAP (ADACEL) VACCINE 2019-05-21 00:00:00 Completed [facility] TDAP (ADACEL) VACCINE 2019-05-21 00:00:00 Completed [facility] TDAP (ADACEL) VACCINE 2019-05-21 00:00:00 Completed [facility] TDAP (ADACEL) VACCINE 2019-05-21 00:00:00 Completed [facility] TDAP (ADACEL) VACCINE 2019-05-21 00:00:00 Completed [facility] TDAP (ADACEL) VACCINE 2019-05-21 00:00:00 Completed [facility] TDAP (ADACEL) VACCINE 2019-05-21 00:00:00 Completed [facility] TDAP (ADACEL) VACCINE 2019-05-21 00:00:00 Completed [facility] TDAP (ADACEL) VACCINE 2019-05-21 00:00:00 Completed [facility] TDAP (ADACEL) VACCINE 2019-05-21 00:00:00 Completed [facility] TDAP (ADACEL) VACCINE 2019-05-21 00:00:00 Completed [facility] TDAP (ADACEL) VACCINE 2019-05-21 00:00:00 Completed [facility] Influenza Virus Vaccine Quad .5 mL IM 6+ MO 2019-02-06 00:00:00 Completed [facility] Influenza Virus Vaccine Quad .5 mL IM 6+ MO 2019-02-06 00:00:00 Completed [facility] Influenza Virus Vaccine Quad .5 mL IM 6+ MO 2019-02-06 00:00:00 Completed [facility] Influenza Virus Vaccine Quad .5 mL IM 6+ MO 2019-02-06 00:00:00 Completed [facility] Influenza Virus Vaccine Quad .5 mL IM 6+ MO 2019-02-06 00:00:00 Completed [facility] Influenza Virus Vaccine Quad .5 mL IM 6+ MO 2019-02-06 00:00:00 Completed [facility] Influenza Virus Vaccine Quad .5 mL IM 6+ MO 2019-02-06 00:00:00 Completed [facility] Influenza Virus Vaccine Quad .5 mL IM 6+ MO 2019-02-06 00:00:00 Completed [facility] Influenza Virus Vaccine Quad .5 mL IM 6+ MO 2019-02-06 00:00:00 Completed [facility] Influenza Virus Vaccine Quad .5 mL IM 6+ MO 2019-02-06 00:00:00 Completed [facility] Influenza Virus Vaccine Quad .5 mL IM 6+ MO 2019-02-06 00:00:00 Completed [facility] Influenza Virus Vaccine Quad .5 mL IM 6+ MO 2019-02-06 00:00:00 Completed [facility] Influenza Virus Vaccine Quad .5 mL IM 6+ MO 2019-02-06 00:00:00 Completed [facility] Influenza Virus Vaccine Quad .5 mL IM 6+ MO 2019-02-06 00:00:00 Completed [facility] Influenza Virus Vaccine Quad .5 mL IM 6+ MO 2019-02-06 00:00:00 Completed [facility] Influenza Virus Vaccine Quad .5 mL IM 6+ MO 2019-02-06 00:00:00 Completed [facility] Influenza Virus Vaccine Quad .5 mL IM 6+ MO 2019-02-06 00:00:00 Completed [facility] Influenza Virus Vaccine Quad .5 mL IM 6+ MO 2019-02-06 00:00:00 Completed [facility] Influenza Virus Vaccine Quad .5 mL IM 6+ MO 2019-02-06 00:00:00 Completed [facility] Influenza Virus Vaccine Quad .5 mL IM 6+ MO 2019-02-06 00:00:00 Completed [facility] Influenza Virus Vaccine Quad .5 mL IM 6+ MO 2019-02-06 00:00:00 Completed [facility] Influenza Virus Vaccine Quad .5 mL IM 6+ MO 2019-02-06 00:00:00 Completed [facility] Influenza Virus Vaccine Quad .5 mL IM 6+ MO 2019-02-06 00:00:00 Completed [facility] Influenza Virus Vaccine Quad .5 mL IM 6+ MO 2019-02-06 00:00:00 Completed [facility] Influenza Virus Vaccine Quad .5 mL IM 6+ MO 2019-02-06 00:00:00 Completed [facility] Influenza Virus Vaccine Quad .5 mL IM 6+ MO 2019-02-06 00:00:00 Completed [facility] Influenza Virus Vaccine Quad .5 mL IM 6+ MO 2019-02-06 00:00:00 Completed [facility] Influenza Virus Vaccine Quad .5 mL IM 6+ MO 2019-02-06 00:00:00 Completed [facility] Influenza Virus Vaccine Quad .5 mL IM 6+ MO 2019-02-06 00:00:00 Completed [facility] Influenza Virus Vaccine Quad .5 mL IM 6+ MO 2019-02-06 00:00:00 Completed [facility] Influenza Virus Vaccine Quad .5 mL IM 6+ MO 2019-02-06 00:00:00 Completed [facility] Influenza Virus Vaccine Quad .5 mL IM 6+ MO 2019-02-06 00:00:00 Completed [facility] Influenza Virus Vaccine Quad .5 mL IM 6+ MO 2019-02-06 00:00:00 Completed [facility] Influenza Virus Vaccine Quad .5 mL IM 6+ MO 2019-02-06 00:00:00 Completed [facility] Influenza Virus Vaccine Quad .5 mL IM 6+ MO 2019-02-06 00:00:00 Completed [facility] Influenza Virus Vaccine Quad .5 mL IM 6+ MO 2019-02-06 00:00:00 Completed [facility] Influenza Virus Vaccine Quad .5 mL IM 6+ MO 2019-02-06 00:00:00 Completed [facility] Influenza Virus Vaccine Quad .5 mL IM 6+ MO 2019-02-06 00:00:00 Completed [facility] Influenza Virus Vaccine Quad .5 mL IM 6+ MO 2019-02-06 00:00:00 Completed [facility] Influenza Virus Vaccine Quad .5 mL IM 6+ MO 2019-02-06 00:00:00 Completed [facility] Influenza Virus Vaccine Quad .5 mL IM 6+ MO 2019-02-06 00:00:00 Completed [facility] Influenza Virus Vaccine Quad .5 mL IM 6+ MO 2019-02-06 00:00:00 Completed [facility] Influenza Virus Vaccine Quad .5 mL IM 6+ MO 2019-02-06 00:00:00 Completed [facility] Influenza Virus Vaccine Quad .5 mL IM 6+ MO 2019-02-06 00:00:00 Completed [facility] Influenza Virus Vaccine Quad .5 mL IM 6+ MO 2019-02-06 00:00:00 Completed [facility] Influenza Virus Vaccine Quad .5 mL IM 6+ MO 2019-02-06 00:00:00 Completed [facility] Influenza Virus Vaccine Quad .5 mL IM 6+ MO 2019-02-06 00:00:00 Completed [facility] Influenza Virus Vaccine Quad .5 mL IM 6+ MO 2019-02-06 00:00:00 Completed [facility] Influenza Virus Vaccine Quad .5 mL IM 6+ MO 2019-02-06 00:00:00 Completed [facility] Influenza Virus Vaccine Quad .5 mL IM 6+ MO 2019-02-06 00:00:00 Completed [facility] Influenza Virus Vaccine Quad .5 mL IM 6+ MO 2019-02-06 00:00:00 Completed [facility] Influenza Virus Vaccine Quad .5 mL IM 6+ MO 2019-02-06 00:00:00 Completed [facility] Influenza Virus Vaccine Quad .5 mL IM 6+ MO (FLUZONE/FLULAVAL/F LUARIX) 2019-02-06 00:00:00 Completed [facility] Influenza Virus Vaccine Quad .5 mL IM 6+ MO (FLUZONE/FLULAVAL/F LUARIX) 2019-02-06 00:00:00 Completed [facility] Influenza Virus Vaccine Quad .5 mL IM 6+ MO (FLUZONE/FLULAVAL/F LUARIX) 2019-02-06 00:00:00 Completed [facility] Influenza Virus Vaccine Quad .5 mL IM 6+ MO (FLUZONE/FLULAVAL/F LUARIX) Unknown Completed [facility] TDAP (ADACEL) VACCINE Unknown Completed [facility] Influenza Virus Vaccine Recomb Quad IM, Preserv and ABX Free 18-64 YRS Unknown Completed [facility] Influenza Virus Vaccine Unknown Completed [facility] Influenza Virus Vaccine Quad IM, Preserv and ABX Free 6 MO-64 YRS (FLUCELVAX) Unknown Completed [facility] Influenza Virus Vaccine Quad .5 mL IM 6+ MO (FLUZONE/FLULAVAL/F LUARIX) Unknown Completed [facility] TDAP (ADACEL) VACCINE Unknown Completed [facility] Influenza Virus Vaccine Recomb Quad IM, Preserv and ABX Free 18-64 YRS Unknown Completed [facility] Influenza Virus Vaccine Unknown Completed [facility] Influenza Virus Vaccine Quad IM, Preserv and ABX Free 6 MO-64 YRS (FLUCELVAX) Unknown Completed [facility] Influenza Virus Vaccine Quad .5 mL IM 6+ MO (FLUZONE/FLULAVAL/F LUARIX) Unknown Completed [facility] TDAP (ADACEL) VACCINE Unknown Completed [facility] Influenza Virus Vaccine Recomb Quad IM, Preserv and ABX Free 18-64 YRS Unknown Completed [facility] Influenza Virus Vaccine Unknown Completed [facility] Influenza Virus Vaccine Quad .5 mL IM 6+ MO (FLUZONE/FLULAVAL/F LUARIX) Unknown Completed [facility] TDAP (ADACEL) VACCINE Unknown Completed [facility] Influenza Virus Vaccine Recomb Quad IM, Preserv and ABX Free 18-64 YRS Unknown Completed [facility] Influenza Virus Vaccine Unknown Completed [facility] Influenza Virus Vaccine Quad .5 mL IM 6+ MO (FLUZONE/FLULAVAL/F LUARIX) Unknown Completed [facility] TDAP (ADACEL) VACCINE Unknown Completed [facility] Influenza Virus Vaccine Recomb Quad IM, Preserv and ABX Free 18-64 YRS Unknown Completed [facility] Influenza Virus Vaccine Unknown Completed [facility] Influenza Virus Vaccine Quad .5 mL IM 6+ MO (FLUZONE/FLULAVAL/F LUARIX) Unknown Completed [facility] TDAP (ADACEL) VACCINE Unknown Completed [facility] Influenza Virus Vaccine Recomb Quad IM, Preserv and ABX Free 18-64 YRS Unknown Completed [facility] Influenza Virus Vaccine Unknown Completed [facility] Influenza Virus Vaccine Quad .5 mL IM 6+ MO (FLUZONE/FLULAVAL/F LUARIX) Unknown Completed [facility] TDAP (ADACEL) VACCINE Unknown Completed [facility] Influenza Virus Vaccine Recomb Quad IM, Preserv and ABX Free 18-64 YRS Unknown Completed [facility] Influenza Virus Vaccine Unknown Completed [facility] Influenza Virus Vaccine Quad .5 mL IM 6+ MO (FLUZONE/FLULAVAL/F LUARIX) Unknown Completed [facility] TDAP (ADACEL) VACCINE Unknown Completed [facility] Influenza Virus Vaccine Recomb Quad IM, Preserv and ABX Free 18-64 YRS Unknown Completed [facility] Influenza Virus Vaccine Unknown Completed [facility] Influenza Virus Vaccine Quad .5 mL IM 6+ MO (FLUZONE/FLULAVAL/F LUARIX) Unknown Completed [facility] TDAP (ADACEL) VACCINE Unknown Completed [facility] Influenza Virus Vaccine Recomb Quad IM, Preserv and ABX Free 18-64 YRS Unknown Completed [facility] Influenza Virus Vaccine Unknown Completed [facility] Influenza Virus Vaccine Quad .5 mL IM 6+ MO (FLUZONE/FLULAVAL/F LUARIX) Unknown Completed [facility] TDAP (ADACEL) VACCINE Unknown Completed [facility] Influenza Virus Vaccine Recomb Quad IM, Preserv and ABX Free 18-64 YRS Unknown Completed [facility] Influenza Virus Vaccine Unknown Completed [facility] Influenza Virus Vaccine Quad .5 mL IM 6+ MO (FLUZONE/FLULAVAL/F LUARIX) Unknown Completed [facility] TDAP (ADACEL) VACCINE Unknown Completed [facility] Influenza Virus Vaccine Recomb Quad IM, Preserv and ABX Free 18-64 YRS Unknown Completed [facility] Influenza Virus Vaccine Unknown Completed [facility] Influenza Virus Vaccine Quad .5 mL IM 6+ MO (FLUZONE/FLULAVAL/F LUARIX) Unknown Completed [facility] TDAP (ADACEL) VACCINE Unknown Completed [facility] Influenza Virus Vaccine Recomb Quad IM, Preserv and ABX Free 18-64 YRS Unknown Completed [facility] Influenza Virus Vaccine Unknown Completed [facility] Influenza Virus Vaccine Quad .5 mL IM 6+ MO (FLUZONE/FLULAVAL/F LUARIX) Unknown Completed [facility] TDAP (ADACEL) VACCINE Unknown Completed [facility] Influenza Virus Vaccine Recomb Quad IM, Preserv and ABX Free 18-64 YRS Unknown Completed [facility] Influenza Virus Vaccine Unknown Completed [facility] Influenza Virus Vaccine Quad .5 mL IM 6+ MO (FLUZONE/FLULAVAL/F LUARIX) Unknown Completed [facility] TDAP (ADACEL) VACCINE Unknown Completed [facility] Influenza Virus Vaccine Recomb Quad IM, Preserv and ABX Free 18-64 YRS Unknown Completed [facility] Influenza Virus Vaccine Unknown Completed [facility] Influenza Virus Vaccine Quad .5 mL IM 6+ MO (FLUZONE/FLULAVAL/F LUARIX) Unknown Completed [facility] TDAP (ADACEL) VACCINE Unknown Completed [facility] Influenza Virus Vaccine Recomb Quad IM, Preserv and ABX Free 18-64 YRS Unknown Completed [facility] Influenza Virus Vaccine Unknown Completed [facility] Influenza Virus Vaccine Quad .5 mL IM 6+ MO (FLUZONE/FLULAVAL/F LUARIX) Unknown Completed [facility] TDAP (ADACEL) VACCINE Unknown Completed [facility] Influenza Virus Vaccine Recomb Quad IM, Preserv and ABX Free 18-64 YRS Unknown Completed [facility] Influenza Virus Vaccine Unknown Completed [facility] Influenza Virus Vaccine Quad .5 mL IM 6+ MO (FLUZONE/FLULAVAL/F LUARIX) Unknown Completed [facility] TDAP (ADACEL) VACCINE Unknown Completed [facility] Influenza Virus Vaccine Recomb Quad IM, Preserv and ABX Free 18-64 YRS Unknown Completed [facility] Influenza Virus Vaccine Unknown Completed [facility] Influenza Virus Vaccine Quad .5 mL IM 6+ MO (FLUZONE/FLULAVAL/F LUARIX) Unknown Completed [facility] TDAP (ADACEL) VACCINE Unknown Completed [facility] Influenza Virus Vaccine Recomb Quad IM, Preserv and ABX Free 18-64 YRS Unknown Completed [facility] Influenza Virus Vaccine Unknown Completed [facility] Influenza Virus Vaccine Quad .5 mL IM 6+ MO (FLUZONE/FLULAVAL/F LUARIX) Unknown Completed [facility] TDAP (ADACEL) VACCINE Unknown Completed [facility] Influenza Virus Vaccine Recomb Quad IM, Preserv and ABX Free 18-64 YRS Unknown Completed [facility] Influenza Virus Vaccine Unknown Completed [facility] Influenza Virus Vaccine Quad .5 mL IM 6+ MO (FLUZONE/FLULAVAL/F LUARIX) Unknown Completed [facility] TDAP (ADACEL) VACCINE Unknown Completed [facility] Influenza Virus Vaccine Recomb Quad IM, Preserv and ABX Free 18-64 YRS Unknown Completed [facility] Influenza Virus Vaccine Unknown Completed [facility] Influenza Virus Vaccine Quad .5 mL IM 6+ MO (FLUZONE/FLULAVAL/F LUARIX) Unknown Completed [facility] TDAP (ADACEL) VACCINE Unknown Completed [facility] Influenza Virus Vaccine Recomb Quad IM, Preserv and ABX Free 18-64 YRS Unknown Completed [facility] Influenza Virus Vaccine Unknown Completed [facility] Influenza Virus Vaccine Quad .5 mL IM 6+ MO (FLUZONE/FLULAVAL/F LUARIX) Unknown Completed [facility] TDAP (ADACEL) VACCINE Unknown Completed [facility] Influenza Virus Vaccine Recomb Quad IM, Preserv and ABX Free 18-64 YRS Unknown Completed [facility] Influenza Virus Vaccine Unknown Completed [facility] Influenza Virus Vaccine Quad .5 mL IM 6+ MO (FLUZONE/FLULAVAL/F LUARIX) Unknown Completed [facility] TDAP (ADACEL) VACCINE Unknown Completed [facility] Influenza Virus Vaccine Recomb Quad IM, Preserv and ABX Free 18-64 YRS Unknown Completed [facility] Influenza Virus Vaccine Unknown Completed [facility] Influenza Virus Vaccine Quad .5 mL IM 6+ MO (FLUZONE/FLULAVAL/F LUARIX) Unknown Completed [facility] TDAP (ADACEL) VACCINE Unknown Completed [facility] Influenza Virus Vaccine Recomb Quad IM, Preserv and ABX Free 18-64 YRS Unknown Completed [facility] Influenza Virus Vaccine Unknown Completed [facility] Influenza Virus Vaccine Quad .5 mL IM 6+ MO (FLUZONE/FLULAVAL/F LUARIX) Unknown Completed [facility] TDAP (ADACEL) VACCINE Unknown Completed [facility] Influenza Virus Vaccine Recomb Quad IM, Preserv and ABX Free 18-64 YRS Unknown Completed [facility] Influenza Virus Vaccine Unknown Completed [facility] Influenza Virus Vaccine Quad .5 mL IM 6+ MO (FLUZONE/FLULAVAL/F LUARIX) Unknown Completed [facility] TDAP (ADACEL) VACCINE Unknown Completed [facility] Influenza Virus Vaccine Recomb Quad IM, Preserv and ABX Free 18-64 YRS Unknown Completed [facility] Influenza Virus Vaccine Unknown Completed [facility] Influenza Virus Vaccine Quad .5 mL IM 6+ MO (FLUZONE/FLULAVAL/F LUARIX) Unknown Completed [facility] TDAP (ADACEL) VACCINE Unknown Completed [facility] Influenza Virus Vaccine Recomb Quad IM, Preserv and ABX Free 18-64 YRS Unknown Completed [facility] Influenza Virus Vaccine Unknown Completed [facility] Influenza Virus Vaccine Quad .5 mL IM 6+ MO (FLUZONE/FLULAVAL/F LUARIX) Unknown Completed [facility] TDAP (ADACEL) VACCINE Unknown Completed [facility] Influenza Virus Vaccine Recomb Quad IM, Preserv and ABX Free 18-64 YRS Unknown Completed [facility] Influenza Virus Vaccine Unknown Completed [facility] Influenza Virus Vaccine Quad .5 mL IM 6+ MO (FLUZONE/FLULAVAL/F LUARIX) Unknown Completed [facility] TDAP (ADACEL) VACCINE Unknown Completed [facility] Influenza Virus Vaccine Recomb Quad IM, Preserv and ABX Free 18-64 YRS Unknown Completed [facility] Influenza Virus Vaccine Unknown Completed [facility] Influenza Virus Vaccine Quad .5 mL IM 6+ MO (FLUZONE/FLULAVAL/F LUARIX) Unknown Completed [facility] TDAP (ADACEL) VACCINE Unknown Completed [facility] Influenza Virus Vaccine Recomb Quad IM, Preserv and ABX Free 18-64 YRS Unknown Completed [facility] Influenza Virus Vaccine Unknown Completed [facility] Influenza Virus Vaccine Quad .5 mL IM 6+ MO (FLUZONE/FLULAVAL/F LUARIX) Unknown Completed [facility] TDAP (ADACEL) VACCINE Unknown Completed [facility] Influenza Virus Vaccine Recomb Quad IM, Preserv and ABX Free 18-64 YRS Unknown Completed [facility] Influenza Virus Vaccine Unknown Completed [facility] Influenza Virus Vaccine Quad .5 mL IM 6+ MO (FLUZONE/FLULAVAL/F LUARIX) Unknown Completed [facility] TDAP (ADACEL) VACCINE Unknown Completed [facility] Influenza Virus Vaccine Recomb Quad IM, Preserv and ABX Free 18-64 YRS Unknown Completed [facility] Influenza Virus Vaccine Unknown Completed [facility] Influenza Virus Vaccine Quad .5 mL IM 6+ MO (FLUZONE/FLULAVAL/F LUARIX) Unknown Completed [facility] TDAP (ADACEL) VACCINE Unknown Completed [facility] Influenza Virus Vaccine Recomb Quad IM, Preserv and ABX Free 18-64 YRS Unknown Completed [facility] Influenza Virus Vaccine Unknown Completed [facility] Influenza Virus Vaccine Quad .5 mL IM 6+ MO (FLUZONE/FLULAVAL/F LUARIX) Unknown Completed [facility] TDAP (ADACEL) VACCINE Unknown Completed [facility] Influenza Virus Vaccine Recomb Quad IM, Preserv and ABX Free 18-64 YRS Unknown Completed [facility] Influenza Virus Vaccine Unknown Completed [facility] Influenza Virus Vaccine Quad .5 mL IM 6+ MO (FLUZONE/FLULAVAL/F LUARIX) Unknown Completed [facility] TDAP (ADACEL) VACCINE Unknown Completed [facility] Influenza Virus Vaccine Recomb Quad IM, Preserv and ABX Free 18-64 YRS Unknown Completed [facility] Influenza Virus Vaccine Unknown Completed [facility] Influenza Virus Vaccine Quad .5 mL IM 6+ MO (FLUZONE/FLULAVAL/F LUARIX) Unknown Completed [facility] TDAP (ADACEL) VACCINE Unknown Completed [facility] Influenza Virus Vaccine Recomb Quad IM, Preserv and ABX Free 18-64 YRS Unknown Completed [facility] Influenza Virus Vaccine Unknown Completed [facility] Influenza Virus Vaccine Quad .5 mL IM 6+ MO (FLUZONE/FLULAVAL/F LUARIX) Unknown Completed [facility] TDAP (ADACEL) VACCINE Unknown Completed [facility] Influenza Virus Vaccine Recomb Quad IM, Preserv and ABX Free 18-64 YRS Unknown Completed [facility] Influenza Virus Vaccine Unknown Completed [facility] Influenza Virus Vaccine Quad .5 mL IM 6+ MO (FLUZONE/FLULAVAL/F LUARIX) Unknown Completed [facility] TDAP (ADACEL) VACCINE Unknown Completed [facility] Influenza Virus Vaccine Recomb Quad IM, Preserv and ABX Free 18-64 YRS Unknown Completed [facility] Influenza Virus Vaccine Unknown Completed [facility] Influenza Virus Vaccine Quad .5 mL IM 6+ MO (FLUZONE/FLULAVAL/F LUARIX) Unknown Completed [facility] TDAP (ADACEL) VACCINE Unknown Completed [facility] Influenza Virus Vaccine Recomb Quad IM, Preserv and ABX Free 18-64 YRS Unknown Completed [facility] Influenza Virus Vaccine Unknown Completed [facility] Influenza Virus Vaccine Quad .5 mL IM 6+ MO (FLUZONE/FLULAVAL/F LUARIX) Unknown Completed [facility] TDAP (ADACEL) VACCINE Unknown Completed [facility] Influenza Virus Vaccine Recomb Quad IM, Preserv and ABX Free 18-64 YRS Unknown Completed [facility] Influenza Virus Vaccine Unknown Completed [facility] Influenza Virus Vaccine Quad .5 mL IM 6+ MO (FLUZONE/FLULAVAL/F LUARIX) Unknown Completed [facility] TDAP (ADACEL) VACCINE Unknown Completed [facility] Influenza Virus Vaccine Recomb Quad IM, Preserv and ABX Free 18-64 YRS Unknown Completed [facility] Influenza Virus Vaccine Unknown Completed [facility] Influenza Virus Vaccine Quad .5 mL IM 6+ MO (FLUZONE/FLULAVAL/F LUARIX) Unknown Completed [facility] TDAP (ADACEL) VACCINE Unknown Completed [facility] Influenza Virus Vaccine Recomb Quad IM, Preserv and ABX Free 18-64 YRS Unknown Completed [facility] Influenza Virus Vaccine Unknown Completed [facility] Influenza Virus Vaccine Quad .5 mL IM 6+ MO (FLUZONE/FLULAVAL/F LUARIX) Unknown Completed [facility] TDAP (ADACEL) VACCINE Unknown Completed [facility] Influenza Virus Vaccine Recomb Quad IM, Preserv and ABX Free 18-64 YRS Unknown Completed [facility] Influenza Virus Vaccine Unknown Completed [facility] Influenza Virus Vaccine Quad .5 mL IM 6+ MO (FLUZONE/FLULAVAL/F LUARIX) Unknown Completed [facility] TDAP (ADACEL) VACCINE Unknown Completed [facility] Influenza Virus Vaccine Recomb Quad IM, Preserv and ABX Free 18-64 YRS Unknown Completed [facility] Influenza Virus Vaccine Unknown Completed [facility] Influenza Virus Vaccine Quad .5 mL IM 6+ MO (FLUZONE/FLULAVAL/F LUARIX) Unknown Completed [facility] TDAP (ADACEL) VACCINE Unknown Completed [facility] Influenza Virus Vaccine Recomb Quad IM, Preserv and ABX Free 18-64 YRS Unknown Completed [facility] Influenza Virus Vaccine Unknown Completed [facility] Influenza Virus Vaccine Quad .5 mL IM 6+ MO (FLUZONE/FLULAVAL/F LUARIX) Unknown Completed [facility] TDAP (ADACEL) VACCINE Unknown Completed [facility] Influenza Virus Vaccine Recomb Quad IM, Preserv and ABX Free 18-64 YRS Unknown Completed [facility] Influenza Virus Vaccine Unknown Completed [facility] Influenza Virus Vaccine Quad .5 mL IM 6+ MO (FLUZONE/FLULAVAL/F LUARIX) Unknown Completed [facility] TDAP (ADACEL) VACCINE Unknown Completed [facility] Influenza Virus Vaccine Recomb Quad IM, Preserv and ABX Free 18-64 YRS Unknown Completed [facility] Influenza Virus Vaccine Unknown Completed [facility] Influenza Virus Vaccine Quad .5 mL IM 6+ MO (FLUZONE/FLULAVAL/F LUARIX) Unknown Completed [facility] TDAP (ADACEL) VACCINE Unknown Completed [facility] Influenza Virus Vaccine Recomb Quad IM, Preserv and ABX Free 18-64 YRS Unknown Completed [facility] Influenza Virus Vaccine Unknown Completed [facility] Influenza Virus Vaccine Quad .5 mL IM 6+ MO (FLUZONE/FLULAVAL/F LUARIX) Unknown Completed [facility] TDAP (ADACEL) VACCINE Unknown Completed [facility] Influenza Virus Vaccine Recomb Quad IM, Preserv and ABX Free 18-64 YRS Unknown Completed [facility] Influenza Virus Vaccine Unknown Completed [facility] Influenza Virus Vaccine Quad .5 mL IM 6+ MO (FLUZONE/FLULAVAL/F LUARIX) Unknown Completed [facility] TDAP (ADACEL) VACCINE Unknown Completed [facility] Influenza Virus Vaccine Recomb Quad IM, Preserv and ABX Free 18-64 YRS Unknown Completed [facility] Influenza Virus Vaccine Unknown Completed [facility] Influenza Virus Vaccine Quad .5 mL IM 6+ MO (FLUZONE/FLULAVAL/F LUARIX) Unknown Completed [facility] TDAP (ADACEL) VACCINE Unknown Completed [facility] Influenza Virus Vaccine Recomb Quad IM, Preserv and ABX Free 18-64 YRS Unknown Completed [facility] Influenza Virus Vaccine Unknown Completed [facility] Influenza Virus Vaccine Quad .5 mL IM 6+ MO (FLUZONE/FLULAVAL/F LUARIX) Unknown Completed [facility] TDAP (ADACEL) VACCINE Unknown Completed [facility] Influenza Virus Vaccine Recomb Quad IM, Preserv and ABX Free 18-64 YRS Unknown Completed [facility] Influenza Virus Vaccine Unknown Completed [facility] Influenza Virus Vaccine Quad .5 mL IM 6+ MO (FLUZONE/FLULAVAL/F LUARIX) Unknown Completed [facility] TDAP (ADACEL) VACCINE Unknown Completed [facility] Influenza Virus Vaccine Recomb Quad IM, Preserv and ABX Free 18-64 YRS Unknown Completed [facility] Influenza Virus Vaccine Unknown Completed [facility] Influenza Virus Vaccine Quad .5 mL IM 6+ MO (FLUZONE/FLULAVAL/F LUARIX) Unknown Completed [facility] TDAP (ADACEL) VACCINE Unknown Completed [facility] Influenza Virus Vaccine Recomb Quad IM, Preserv and ABX Free 18-64 YRS Unknown Completed [facility] Influenza Virus Vaccine Unknown Completed [facility] Influenza Virus Vaccine Quad .5 mL IM 6+ MO (FLUZONE/FLULAVAL/F LUARIX) Unknown Completed [facility] TDAP (ADACEL) VACCINE Unknown Completed [facility] Influenza Virus Vaccine Quad .5 mL IM 6+ MO (FLUZONE/FLULAVAL/F LUARIX) Unknown Completed [facility] TDAP (ADACEL) VACCINE Unknown Completed [facility] Influenza Virus Vaccine Quad .5 mL IM 6+ MO (FLUZONE/FLULAVAL/F LUARIX) Unknown Completed [facility] TDAP (ADACEL) VACCINE Unknown Completed [facility] Influenza Virus Vaccine Quad .5 mL IM 6+ MO (FLUZONE/FLULAVAL/F LUARIX) Unknown Completed [facility] TDAP (ADACEL) VACCINE Unknown Completed [facility] Influenza Virus Vaccine Quad .5 mL IM 6+ MO (FLUZONE/FLULAVAL/F LUARIX) Unknown Completed [facility] TDAP (ADACEL) VACCINE Unknown Completed [facility] Influenza Virus Vaccine Quad .5 mL IM 6+ MO (FLUZONE/FLULAVAL/F LUARIX) Unknown Completed [facility] TDAP (ADACEL) VACCINE Unknown Completed [facility] Influenza Virus Vaccine Quad .5 mL IM 6+ MO (FLUZONE/FLULAVAL/F LUARIX) Unknown Completed [facility] TDAP (ADACEL) VACCINE Unknown Completed [facility] Influenza Virus Vaccine Quad .5 mL IM 6+ MO (FLUZONE/FLULAVAL/F LUARIX) Unknown Completed [facility] TDAP (ADACEL) VACCINE Unknown Completed [facility] Influenza Virus Vaccine Quad .5 mL IM 6+ MO (FLUZONE/FLULAVAL/F LUARIX) Unknown Completed [facility] TDAP (ADACEL) VACCINE Unknown Completed [facility] Influenza Virus Vaccine Quad .5 mL IM 6+ MO (FLUZONE/FLULAVAL/F LUARIX) Unknown Completed [facility] TDAP (ADACEL) VACCINE Unknown Completed [facility] Influenza Virus Vaccine Recomb Quad IM, Preserv and ABX Free 18-64 YRS Unknown Completed [facility] Influenza Virus Vaccine Unknown Completed [facility] Influenza Virus Vaccine Quad IM, Preserv and ABX Free 6 MO-64 YRS (FLUCELVAX) Unknown Completed [facility] Influenza Virus Vaccine Quad .5 mL IM 6+ MO (FLUZONE/FLULAVAL/F LUARIX) Unknown Completed [facility] TDAP (ADACEL) VACCINE Unknown Completed [facility] Influenza Virus Vaccine Recomb Quad IM, Preserv and ABX Free 18-64 YRS Unknown Completed [facility] Influenza Virus Vaccine Unknown Completed [facility] Influenza Virus Vaccine Quad IM, Preserv and ABX Free 6 MO-64 YRS (FLUCELVAX) Unknown Completed [facility] Influenza Virus Vaccine Quad .5 mL IM 6+ MO (FLUZONE/FLULAVAL/F LUARIX) Unknown Completed [facility] TDAP (ADACEL) VACCINE Unknown Completed [facility] Influenza Virus Vaccine Recomb Quad IM, Preserv and ABX Free 18-64 YRS Unknown Completed [facility] Influenza Virus Vaccine Unknown Completed [facility] Influenza Virus Vaccine Quad IM, Preserv and ABX Free 6 MO-64 YRS (FLUCELVAX) Unknown Completed [facility] Vital Signs Vital Name Observation Time Observation Value Comments S ource Systolic blood pressure 2024-08-16 15:52:44 116 mm[Hg] [facility] Diastolic blood pressure 2024-08-16 15:52:44 70 mm[Hg] [facility] Heart rate 2024-08-16 15:52:44 62 /min [facility] Body temperature 2024-08-16 15:52:44 36.89 Irene [facility] Respiratory rate 2024-08-16 15:52:44 16 /min [facility] Oxygen saturation in Arterial blood by Pulse oximetry 2024-08-16 15:52:44 100 /min [facility] Body height 2024-08-16 13:09:00 154.9 cm [facility] weight 2024-08-16 13:09:00 58.968 kg [facility] BMI 2024-08-16 13:09:00 24.56 kg/m2 [facility] Systolic blood pressure 2024-08-02 17:21:00 119 mm[Hg] [facility] Diastolic blood pressure 2024-08-02 17:21:00 81 mm[Hg] [facility] Heart rate 2024-08-02 17:21:00 88 /min [facility] Body temperature 2024-08-02 17:21:00 36.78 Irene [facility] Respiratory rate 2024-08-02 17:21:00 16 /min [facility] Oxygen saturation in Arterial blood by Pulse oximetry 2024-08-02 17:21:00 100 /min [facility] Body height 2024-08-02 15:11:00 154.9 cm [facility] Body weight 2024-08-02 15:11:00 52.164 kg [facility] BMI 2024-08-02 15:11:00 21.73 kg/m2 [facility] Systolic blood pressure 2024-05-19 20:32:57 137 mm[Hg] [facility] Diastolic blood pressure 2024-05-19 20:32:57 88 mm[Hg] [facility] Heart rate 2024-05-19 20:32:57 118 /min [facility] Respiratory rate 2024-05-19 20:32:57 18 /min [facility] Oxygen saturation in Arterial blood by Pulse oximetry 2024-05-19 20:32:57 100 /min [facility] Body temperature 2024-05-19 18:41:00 36.39 Irene [facility] Body height 2024-05-19 18:41:00 154.9 cm [facility] Body weight 2024-05-19 18:41:00 52.164 kg [facility] BMI 2024-05-19 18:41:00 21.73 kg/m2 [facility] Systolic blood pressure 2024-04-19 15:51:38 123 mm[Hg] [facility] Diastolic blood pressure 2024-04-19 15:51:38 90 mm[Hg] [facility] Heart rate 2024-04-19 15:51:38 87 /min [facility] Body temperature 2024-04-19 15:51:38 36.78 Irene [facility] Respiratory rate 2024-04-19 15:51:38 14 /min [facility] Oxygen saturation in Arterial blood by Pulse oximetry 2024-04-19 15:51:38 100 /min [facility] [facility] Body height 2024-04-19 13:54:00 154.9 cm [facility] Body weight 2024-04-19 13:54:00 54.432 kg [facility] BMI 2024-04-19 13:54:00 22.67 kg/m2 [facility] hospital Systolic blood pressure 2024-04-12 20:00:00 119 mm[Hg] [facility] Diastolic blood pressure 2024-04-12 20:00:00 80 mm[Hg] [facility] Heart rate 2024-04-12 20:00:00 88 /min [facility] Respiratory rate 2024-04-12 20:00:00 18 /min [facility] Oxygen saturation in Arterial blood by Pulse oximetry 2024-04-12 20:00:00 99 /min [facility] Body temperature 2024-04-12 19:00:00 36.67 Irene [facility] Body height 2024-04-12 17:57:10 154.9 cm [facility] Body weight 2024-04-12 17:57:10 54.432 kg [facility] acute [facility] BMI 2024-04-12 17:57:10 22.67 kg/m2 [facility] Systolic blood pressure 2024-04-12 16:25:00 124 mm[Hg] [facility] Diastolic blood pressure 2024-04-12 16:25:00 95 mm[Hg] [facility] Heart rate 2024-04-12 16:25:00 106 /min [facility] Body temperature 2024-04-12 16:25:00 37.17 Irene [facility] Respiratory rate 2024-04-12 16:25:00 18 /min [facility] Oxygen saturation in Arterial blood by Pulse oximetry 2024-04-12 16:25:00 100 /min [facility] Body height 2024-04-12 15:25:00 154.9 cm [facility] Body weight 2024-04-12 15:25:00 54.432 kg [facility] acute [facility] BMI 2024-04-12 15:25:00 22.67 kg/m2 [facility] Systolic blood pressure 2024-03-13 13:25:00 129 mm[Hg] [facility] Diastolic blood pressure 2024-03-13 13:25:00 87 mm[Hg] [facility] Heart rate 2024-03-13 13:25:00 116 /min [facility] Body temperature 2024-03-13 13:25:00 35.61 Irene [facility] Respiratory rate 2024-03-13 13:25:00 20 /min [facility] Oxygen saturation in Arterial blood by Pulse oximetry 2024-03-13 13:25:00 94 /min [facility] Body height 2024-03-10 14:43:00 154.9 cm [facility] Body weight 2024-03-10 14:43:00 44.453 kg [facility] BMI 2024-03-10 14:43:00 18.52 kg/m2 [facility] Systolic blood pressure 2024-03-05 16:10:00 142 mm[Hg] [facility] Diastolic blood pressure 2024-03-05 16:10:00 87 mm[Hg] [facility] Heart rate 2024-03-05 16:10:00 94 /min [facility] Body temperature 2024-03-05 16:10:00 37 Irene [facility] Respiratory rate 2024-03-05 16:10:00 16 /min [facility] Oxygen saturation in Arterial blood by Pulse oximetry 2024-03-05 16:10:00 100 /min [facility] Body height 2024-03-04 11:42:00 154.9 cm [facility] Body weight 2024-03-04 11:42:00 45.36 kg [facility] BMI 2024-03-04 11:42:00 18.89 kg/m2 [facility] Systolic blood pressure 2024-02-27 17:17:00 138 mm[Hg] [facility] Diastolic blood pressure 2024-02-27 17:17:00 91 mm[Hg] [facility] Heart rate 2024-02-27 17:17:00 97 /min [facility] Body temperature 2024-02-27 17:17:00 36.67 Irene [facility] Respiratory rate 2024-02-27 17:17:00 16 /min [facility] Oxygen saturation in Arterial blood by Pulse oximetry 2024-02-27 17:17:00 99 /min [facility] Body height 2024-02-27 13:16:00 154.9 cm [facility] Body weight 2024-02-27 13:16:00 45.36 kg [facility] BMI 2024-02-27 13:16:00 18.89 kg/m2 [facility] Systolic blood pressure 2024-02-27 15:50:00 122 mm[Hg] [facility] Diastolic blood pressure 2024-02-27 15:50:00 81 mm[Hg] [facility] Heart rate 2024-02-27 15:50:00 102 /min [facility] Respiratory rate 2024-02-27 15:50:00 13 /min [facility] Oxygen saturation in Arterial blood by Pulse oximetry 2024-02-27 15:50:00 98 /min [facility] Body temperature 2024-02-27 15:20:00 36 Irene [facility] Body height 2024-02-27 13:16:00 154.9 cm [facility] Body weight 2024-02-27 13:16:00 45.36 kg [facility] BMI 2024-02-27 13:16:00 18.89 kg/m2 [facility] Systolic blood pressure 2023-05-19 17:24:00 129 mm[Hg] [facility] Diastolic blood pressure 2023-05-19 17:24:00 83 mm[Hg] [facility] Heart rate 2023-05-19 17:24:00 77 /min [facility] Respiratory rate 2023-05-19 17:24:00 15 /min [facility] Oxygen saturation in Arterial blood by Pulse oximetry 2023-05-19 17:24:00 100 /min [facility] Body temperature 2023-05-19 14:50:00 37.28 Irene [facility] Body height 2023-05-19 14:50:00 154.9 cm [facility] Body weight 2023-05-19 14:50:00 58.968 kg [facility] BMI 2023-05-19 14:50:00 24.56 kg/m2 [facility] Systolic blood pressure 2023-01-15 16:56:00 132 mm[Hg] [facility] Diastolic blood pressure 2023-01-15 16:56:00 91 mm[Hg] [facility] Heart rate 2023-01-15 16:56:00 67 /min [facility] Body temperature 2023-01-15 16:56:00 36.78 Irene [facility] Respiratory rate 2023-01-15 16:56:00 20 /min [facility] Oxygen saturation in Arterial blood by Pulse oximetry 2023-01-15 16:56:00 100 /min [facility] Body height 2023-01-12 09:05:00 154.9 cm [facility] Body weight 2023-01-12 09:05:00 58.968 kg [facility] acute hospital BMI 2023-01-12 09:05:00 24.56 kg/m2 [facility] Systolic blood pressure 2022-11-21 21:40:00 122 mm[Hg] [facility] Diastolic blood pressure 2022-11-21 21:40:00 90 mm[Hg] [facility] Heart rate 2022-11-21 21:40:00 92 /min [facility] Respiratory rate 2022-11-21 21:40:00 16 /min [facility] Oxygen saturation in Arterial blood by Pulse oximetry 2022-11-21 21:40:00 99 /min [facility] Body temperature 2022-11-21 18:07:00 37.28 Irene [facility] Body weight 2022-11-21 18:07:00 68.04 kg [facility] BMI 2022-11-21 18:07:00 28.34 kg/m2 [facility] acute [facility] Systolic blood pressure 2022-09-05 17:22:00 139 mm[Hg] [facility] Diastolic blood pressure 2022-09-05 17:22:00 91 mm[Hg] [facility] Heart rate 2022-09-05 17:22:00 120 /min [facility] Respiratory rate 2022-09-05 17:22:00 18 /min [facility] Oxygen saturation in Arterial blood by Pulse oximetry 2022-09-05 17:22:00 99 /min [facility] Body temperature 2022-09-05 13:43:00 37.11 Irene [facility] Body weight 2022-09-05 13:43:00 68.04 kg [facility] BMI 2022-09-05 13:43:00 28.34 kg/m2 [facility] Systolic blood pressure 2022-08-01 00:49:00 138 mm[Hg] [facility] Diastolic blood pressure 2022-08-01 00:49:00 104 mm[Hg] [facility] Heart rate 2022-08-01 00:49:00 108 /min [facility] Respiratory rate 2022-08-01 00:49:00 18 /min [facility] Oxygen saturation in Arterial blood by Pulse oximetry 2022-08-01 00:49:00 99 /min [facility] Body temperature 2022-07-31 22:52:00 37.11 [facility] Body height 2022-07-31 22:52:00 154.9 cm [facility] Body weight 2022-07-31 22:52:00 68.04 kg [facility] BMI 2022-07-31 22:52:00 28.34 kg/m2 [facility] Systolic blood pressure 2022-07-15 15:32:00 130 mm[Hg] [facility] Diastolic blood pressure 2022-07-15 15:32:00 90 mm[Hg] [facility] Heart rate 2022-07-15 15:31:00 81 /min [facility] Body temperature 2022-07-15 15:31:00 36.94 Irene [facility] Respiratory rate 2022-07-15 15:31:00 16 /min [facility] Body weight 2022-07-15 15:31:00 68.493 kg Univ [facility] BMI 2022-07-15 15:31:00 28.53 kg/m2 [facility] Oxygen saturation in Arterial blood by Pulse oximetry 2022-07-15 15:31:00 99 /min [facility] Systolic blood pressure 2022-06-23 15:26:00 111 mm[Hg] [facility] Diastolic blood pressure 2022-06-23 15:26:00 75 mm[Hg] [facility] Heart rate 2022-06-23 15:26:00 108 /min [facility] Body temperature 2022-06-23 15:26:00 36.83 Irene [facility] Respiratory rate 2022-06-23 15:26:00 18 /min [facility] Body height 2022-06-23 15:26:00 154.9 cm [facility] weight 2022-06-23 15:26:00 71.385 kg Univ [facility] BMI 2022-06-23 15:26:00 29.74 kg/m2 [facility] Oxygen saturation in Arterial blood by Pulse oximetry 2022-06-23 15:26:00 99 /min [facility] Systolic blood pressure 2022-05-05 22:05:00 126 mm[Hg] [facility] Diastolic blood pressure 2022-05-05 22:05:00 75 mm[Hg] [facility] Heart rate 2022-05-05 22:05:00 99 /min [facility] Respiratory rate 2022-05-05 22:05:00 16 /min [facility] Oxygen saturation in Arterial blood by Pulse oximetry 2022-05-05 22:05:00 99 /min [facility] Body temperature 2022-05-05 18:24:00 37.11 Irene [facility] Body height 2022-05-05 18:24:00 154.9 cm [facility] Body weight 2022-05-05 18:24:00 54.432 kg [facility] BMI 2022-05-05 18:24:00 22.67 kg/m2 [facility] Systolic blood pressure 2022-04-26 14:28:00 135 mm[Hg] [facility] Diastolic blood pressure 2022-04-26 14:28:00 95 mm[Hg] [facility] Heart rate 2022-04-26 14:28:00 93 /min [facility] Body temperature 2022-04-26 14:28:00 36.89 Irene [facility] Respiratory rate 2022-04-26 14:28:00 18 /min [facility] Body height 2022-04-26 14:28:00 154.9 cm [facility] Body weight 2022-04-26 14:28:00 54.432 kg [facility] BMI 2022-04-26 14:28:00 22.67 kg/m2 [facility] Oxygen saturation in Arterial blood by Pulse oximetry 2022-04-26 14:28:00 100 /min [facility] Systolic blood pressure 2022-04-26 00:21:00 151 mm[Hg] [facility] Diastolic blood pressure 2022-04-26 00:21:00 98 mm[Hg] [facility] Heart rate 2022-04-26 00:21:00 98 /[facility] Body temperature 2022-04-26 00:21:00 36.72 Irene [facility] Respiratory rate 2022-04-26 00:21:00 18 /min [facility] Body height 2022-04-26 00:21:00 154.9 cm [facility] Body weight 2022-04-26 00:21:00 54.432 kg [facility] BMI 2022-04-26 00:21:00 22.67 kg/m2 [facility] Oxygen saturation in Arterial blood by Pulse oximetry 2022-04-26 00:21:00 100 /min [facility] Systolic blood pressure 2022-04-09 14:39:00 122 mm[Hg] [facility] Diastolic blood pressure 2022-04-09 14:39:00 84 mm[Hg] [facility] Heart rate 2022-04-09 14:39:00 96 [facility]22-04-09 14:39:00 154.9 cm [facility] Body weight 2022-04-09 14:39:00 60.328 kg [facility] BMI 2022-04-09 14:39:00 25.13 kg/m2 [facility] Oxygen saturation in Arterial blood by Pulse oximetry 2022-04-09 14:39:00 98 /min [facility] Systolic blood pressure 2022-04-07 22:43:36 131 mm[Hg] [facility] Diastolic blood pressure 2022-04-07 22:43:36 83 mm[Hg] [facility] Heart rate 2022-04-07 22:43:36 113 /min [facility] Respiratory rate 2022-04-07 22:43:36 18 /min [facility] Oxygen saturation in Arterial blood by Pulse oximetry 2022-04-07 22:43:36 97 /min [facility] Body temperature 2022-04-07 19:41:00 37.17 Irene [facility] Body height 2022-04-07 19:41:00 154.9 cm [facility] Body weight 2022-04-07 19:41:00 60.328 kg [facility] BMI 2022-04-07 19:41:00 25.13 kg/m2 [facility] Systolic blood pressure 2022-03-24 19:00:00 125 mm[Hg] [facility] Diastolic blood pressure 2022-03-24 19:00:00 86 mm[Hg] [facility] Heart rate 2022-03-24 19:00:00 93 /min [facility] Respiratory rate 2022-03-24 19:00:00 17 /min [facility] Oxygen saturation in Arterial blood by Pulse oximetry 2022-03-24 19:00:00 97 /min [facility] Body temperature 2022-03-24 13:33:00 36.78 Irene [facility] Systolic blood pressure 2022-03-15 19:23:00 128 mm[Hg] [facility] Diastolic blood pressure 2022-03-15 19:23:00 89 mm[Hg] [facility] Heart rate 2022-03-15 19:23:00 104 /min [facility] Body weight 2022-03-15 19:23:00 60.328 kg [facility] BMI 2022-03-15 19:23:00 25.13 kg/m2 [facility] Oxygen saturation in Arterial blood by Pulse oximetry 2022-03-15 19:23:00 98 /min [facility] Systolic blood pressure 2022-03-15 15:02:00 115 mm[Hg] [facility] Diastolic blood pressure 2022-03-15 15:02:00 70 mm[Hg] [facility] Heart rate 2022-03-15 15:02:00 85 /min [facility] Respiratory rate 2022-03-15 15:02:00 20 /min [facility] Oxygen saturation in Arterial blood by Pulse oximetry 2022-03-15 15:02:00 99 /min [facility] Body temperature 2022-03-15 13:38:00 36.94 Irene [facility] Body height 2022-03-15 13:38:00 154.9 cm [facility] Body weight 2022-03-15 13:38:00 54.432 kg [facility] BMI 2022-03-15 13:38:00 22.67 kg/m2 [facility] Systolic blood pressure 2022-03-11 16:30:00 124 mm[Hg] [facility] Diastolic blood pressure 2022-03-11 16:30:00 88 mm[Hg] [facility] Heart rate 2022-03-11 16:30:00 93 /min [facility] Body temperature 2022-03-11 16:30:00 36.67 Irene [facility] Respiratory rate 2022-03-11 16:30:00 14 /min [facility] Oxygen saturation in Arterial blood by Pulse oximetry 2022-03-11 16:30:00 100 /min [facility] Body height 2022-03-11 14:19:00 154.9 cm Univ [facility] Body weight 2022-03-11 14:19:00 58.968 kg [facility] BMI 2022-03-11 14:19:00 24.56 kg/m2 [facility] Systolic blood pressure 2022-02-27 14:14:00 140 mm[Hg] [facility] Diastolic blood pressure 2022-02-27 14:14:00 90 mm[Hg] [facility] Heart rate 2022-02-27 14:14:00 103 /min [facility] Body height 2022-02-27 14:14:00 154.9 cm [facility] Body weight 2022-02-27 14:14:00 59.194 kg [facility] BMI 2022-02-27 14:14:00 24.66 kg/m2 [facility] Oxygen saturation in Arterial blood by Pulse oximetry 2022-02-27 14:14:00 100 /min [facility] Systolic blood pressure 2022-02-27 13:19:00 131 mm[Hg] [facility] Diastolic blood pressure 2022-02-27 13:19:00 86 mm[Hg] [facility] Heart rate 2022-02-27 13:19:00 102 /min [facility] Body temperature 2022-02-27 13:19:00 36.33 Irene [facility] Body height 2022-02-27 13:19:00 154.9 cm [facility] Body weight 2022-02-27 13:19:00 58.968 kg [facility] BMI 2022-02-27 13:19:00 24.56 kg/m2 [facility] Oxygen saturation in Arterial blood by Pulse oximetry 2022-02-27 13:19:00 99 /min [facility] Systolic blood pressure 2022-02-21 08:06:00 135 mm[Hg] [facility] Diastolic blood pressure 2022-02-21 08:06:00 97 mm[Hg] [facility] Heart rate 2022-02-21 08:06:00 98 /min [facility] Respiratory rate 2022-02-21 08:06:00 16 /min [facility] Oxygen saturation in Arterial blood by Pulse oximetry 2022-02-21 08:06:00 97 /min [facility] Body temperature 2022-02-21 06:16:00 36.94 Irene [facility] Body height 2022-02-21 06:16:00 154.9 cm [facility] Body weight 2022-02-21 06:16:00 60.963 kg [facility] BMI 2022-02-21 06:16:00 25.39 kg/m2 [facility] Systolic blood pressure 2022 20:08:00 136 mm[Hg] [facility] Diastolic blood pressure 2022 20:08:00 96 mm[Hg] [facility] Heart rate 2022 20:08:00 100 /min [facility] Respiratory rate 2022 20:08:00 20 /min [facility] Oxygen saturation in Arterial blood by Pulse oximetry 2022 20:08:00 98 /min [facility] Body temperature 2022 16:56:00 37.06 Irene [facility] Body weight 2022 16:56:00 54.432 kg [facility] BMI 2022 16:56:00 22.67 kg/m2 [facility] Systolic blood pressure 2022-02-05 14:31:00 128 mm[Hg] [facility] Diastolic blood pressure 2022-02-05 14:31:00 84 mm[Hg] [facility] Heart rate 2022-02-05 14:31:00 86 /min [facility] Body temperature 2022-02-05 14:31:00 37.89 Irene [facility] Respiratory rate 2022-02-05 14:31:00 18 /min [facility] Body height 2022-02-05 14:31:00 154.9 cm [facility] Body weight 2022-02-05 14:31:00 54.432 kg [facility] BMI 2022-02-05 14:31:00 22.67 kg/m2 [facility] Oxygen saturation in Arterial blood by Pulse oximetry 2022-02-05 14:31:00 98 /min [facility] Systolic blood pressure 2022-01-18 14:50:00 144 mm[Hg] [facility] Diastolic blood pressure 2022-01-18 14:50:00 92 mm[Hg] [facility] Heart rate 2022-01-18 14:50:00 94 /min [facility] Respiratory rate 2022-01-18 14:50:00 20 /min [facility] Oxygen saturation in Arterial blood by Pulse oximetry 2022-01-18 14:50:00 99 /min [facility] Body weight 2022-01-18 10:18:00 54.432 kg [facility] BMI 2022-01-18 10:18:00 22.67 kg/m2 [facility] Body temperature 2022-01-18 10:15:00 36.72 Irene [facility] Systolic blood pressure 2022-01-15 15:48:26 125 mm[Hg] [facility] Diastolic blood pressure 2022-01-15 15:48:26 85 mm[Hg] [facility] Heart rate 2022-01-15 15:48:26 95 /min [facility] Respiratory rate 2022-01-15 15:48:26 18 /min [facility] Oxygen saturation in Arterial blood by Pulse oximetry 2022-01-15 15:48:26 98 /min [facility] Body temperature 2022-01-15 13:32:00 37.11 Irene [facility] Body height 2022-01-15 13:32:00 154.9 cm [facility] Body weight 2022-01-15 13:32:00 54.432 kg [facility] BMI 2022-01-15 13:32:00 22.67 kg/m2 [facility] Systolic blood pressure 2022-01-09 00:37:11 127 mm[Hg] [facility] Diastolic blood pressure 2022-01-09 00:37:11 90 mm[Hg] [facility] Heart rate 2022-01-09 00:37:11 94 /min [facility] Body temperature 2022-01-09 00:37:11 37.11 Irene [facility] Respiratory rate 2022-01-09 00:37:11 16 /min [facility] Oxygen saturation in Arterial blood by Pulse oximetry 2022-01-09 00:37:11 97 /min [facility] Body height 2022-01-08 23:03:00 154.9 cm [facility] Body weight 2022-01-08 23:03:00 58.06 kg [facility] BMI 2022-01-08 23:03:00 24.19 kg/m2 [facility] Systolic blood pressure 2021-12-12 18:00:00 126 mm[Hg] [facility] Diastolic blood pressure 2021-12-12 18:00:00 87 mm[Hg] [facility] Heart rate 2021-12-12 18:00:00 86 /min [facility] Body temperature 2021-12-12 18:00:00 36.89 Irene [facility] Respiratory rate 2021-12-12 18:00:00 18 /min [facility] Body height 2021-12-12 18:00:00 154.9 cm [facility] Body weight 2021-12-12 18:00:00 57.153 kg [facility] BMI 2021-12-12 18:00:00 23.81 kg/m2 [facility] Systolic blood pressure 2023-01-14 16:32:00 138 mm[Hg] [facility] Diastolic blood pressure 2023-01-14 16:32:00 84 mm[Hg] [facility] Heart rate 2023-01-14 16:32:00 67 /min [facility] Body temperature 2023-01-14 16:32:00 36.5 Irene [facility] Respiratory rate 2023-01-14 16:32:00 16 /min [facility] Oxygen saturation in Arterial blood by Pulse oximetry 2023-01-14 16:32:00 99 /min [place] [facility] Body height 2023-01-12 09:05:00 154.9 cm [facility] Body weight 2023-01-12 09:05:00 58.968 kg [facility] BMI 2023-01-12 09:05:00 24.56 kg/m2 [facility] Procedures Procedure Date / Time Performed Performing Clinician Source CT ABDOMEN PELVIS WO CONTRAST 2024-08-16 14:27:56 Leonela Veloz [facility] POCT TEST 2024-08-16 13:22:00 Leonela Veloz [facility] LIPASE 2024-08-16 13:17:00 Leonela Veloz [facility] COMP. METABOLIC PANEL ([id number]) 2024-08-16 13:17:00 Leonela Veloz [facility] CBC WITH DIFF 2024-08-16 13:17:00 Leonela Veloz [facility] URINALYSIS 2024-08-16 13:17:00 Leonela Veloz [facility] POCT TEST 2024-05-19 20:10:00 Anamaria Gonzales [facility] LIPASE 2024-05-19 19:53:00 Anamaria Gonzales [facility] COMP. METABOLIC PANEL ([id number]) 2024-05-19 19:53:00 Anamaria Gonzales [facility] CBC WITH DIFF 2024-05-19 19:53:00 Anamaria Gonzales [facility] URINALYSIS 2024-05-19 19:53:00 Anamaria Gonzales [facility] CT ABDOMEN PELVIS WO CONTRAST 2024-04-19 14:51:33 Rosendo Levy [facility] POCT TEST 2024-04-19 14:21:00 Rosendo eLvy [facility] LIPASE 2024-04-19 14:18:00 Rosendo Levy [facility] COMP. METABOLIC PANEL ([id number]) 2024-04-19 14:18:00 Rosendo Levy [facility] CBC WITH DIFF 2024-04-19 14:18:00 Rosendo Levy [facility] URINALYSIS 2024-04-19 14:18:00 Rosendo Levy [facility] XR ANKLE <3 VW LEFT 2024-04-12 18:36:00 Niranjan Neeta [facility] XR FOOT <3 VW LEFT 2024-04-12 18:36:00 Niranjan [facility] XR TIBIA FIBULA 2 VW LEFT 2024-04-12 18:36:00 Niranjan [facility] CT TRAUMA HEAD WO CONTRAST 2024-04-12 18:27:49 [facility] CT TRAUMA CERVICAL SPINE WO CONTRAST 2024-04-12 18:27:49 [facility] CT TRAUMA THORACIC SPINE WO CONTRAST 2024-04-12 18:27:49 [facility] CT TRAUMA LUMBAR SPINE WO CONTRAST 04-12 18:27:49 Niranjan Neeta [facility] XR CHEST 1 VW 2024-04-12 15:50:27 Maggie Hamilton [facility] COMP. METABOLIC PANEL (34426) 2024-04-12 15:43:00 Maggie Hamilton [facility] CBC WITH DIFF 2024-04-12 15:43:00 Maggie Hamilton [facility] HB ABO GROUPING 2024-04-12 15:43:00 Maggie Hamilton [facility] ER FAST ULTRASOUND 2024-04-12 15:36:51 Maggie Hamilton [facility] MAGNESIUM 2024-03-13 10:20:00 Ellis Burgess [facility] BASIC METABOLIC PANEL (NA, K , CL, CO2, GLUCOSE, BUN, CREATININE, CA) 2024-03-13 10:20:00 Ellis Burgess [facility] CBC WITH DIFF 2024-03-13 10:20:00 Ellis Burgess [facility] FECAL PATHOGENS BY PCR 2024-03-12 17:51:00 [facility] CLOSTRIDIUM DIFFICILE TOXIN 2024-03-12 17:50:00 [facility] LAB ONLY C. DIFFICILE TOXIN B GENE (TCDB) BY PCR 2024-03-12 17:50:00 [facility] SUPERIOR MESENTERIC ARTERY D UPLEX - BY VASCULAR LAB 2024-03-12 14:06:02 [facility] MAGNESIUM 2024-03-12 11:14:00 [facility] BASIC METABOLIC PANEL (NA, K , CL, CO2, GLUCOSE, BUN, CREATININE, CA) 2024-03-12 11:14:00 Mars [facility] CBC WITHOUT DIFF 2024-03-12 11:14:00 [facility] MAGNESIUM 2024-03-11 10:47:00 Kitty [facility] BASIC METABOLIC PANEL (NA, K , CL, CO2, GLUCOSE, BUN, CREATININE, CA) 2024-03-11 10:47:00 Kitty [facility] CBC WITH DIFF 2024-03-11 10:47:00 Kitty [facility] CT ABDOMEN PELVIS WO CONTRAST 2024-03-10 19:46:10 Venkat [facility] LIPASE 2024-03-10 15:42:00 Venkat [facility] TEST, SERUM 2024-03-10 15:42:00 Alfredo Parra [facility] COMP. METABOLIC PANEL (64552) 2024-03-10 15:42:00 Venkat [facility] URINE DRUG (IMMUNOASSAY) - COMPREHENSIVE DRUG SCREEN 2024-03-10 15:42:00 Kitty [facility] CBC WITH DIFF 2024-03-10 15:42:00 Venkat [facility] URINALYSIS 2024-03-10 15:42:00 Venkat [facility] EXTRA TUBE DK. GREEN 2024-03-10 15:42:00 Alfredo Parra [facility] CT ABDOMEN PELVIS WO CONTRAST 2024-03-04 13:43:16 Alexander Richard [facility] POCT TEST 2024-03-04 13:14:00 Alexander Richard [facility] LIPASE 2024-03-04 13:13:00 Alexander Richard [facility] COMP. METABOLIC PANEL ([id number]) 2024-03-04 13:13:00 Alexander Richard [facility] CBC WITH DIFF 2024-03-04 13:13:00 Alexander Richard [facility] URINALYSIS 2024-03-04 13:13:00 Alexander Richard [facility] ENDOSCOPY PROCEDURE DOCUMENTATION 2023-05 018 14:46:53 Doctor Unassigned, Dulac [facility] FLEXIBLE SIGMOIDOSCOPY (ENDO) 2024-02-27 15:42:37 Hany Lee [facility] FLEXIBLE SIGMOIDOSCOPY (ENDO) 2024-02-27 15:42:37 Hany Lee [facility] EGD (ENDO) 2024-02-27 15:39:44 Hany Lee [facility] EGD (ENDO) 2024-02-27 15:39:44 Hany Lee [facility] ESOPHAGOGASTRODUODENOSCOPY 2024-02-27 14:11:00 Jas Buenrostro [facility] FLEXIBLE SIGMOIDOSCOPY 2024-02-27 14:11:00 Jas Buenrostro [facility] MAGNESIUM 2024-02-27 09:37:00 Jose Carlos Urbina [facility] HEPATIC FUNCTION PANEL (8007 6) (ALB,T.PRO,BILI T,BU/BC,ALT,AST,ALK PHOS) 2024-02-27 09:37:00 Jose Carlos Urbina [facility] BASIC METABOLIC PANEL (NA, K , CL, CO2, GLUCOSE, BUN, CREATININE, CA) 2024-02-27 09:37:00 Jose Carlos Urbina [facility] CBC WITH DIFF 2024-02-27 09:37:00 Carlitos, [facility] 2024-02-27 09:37:00 Jose Carlos Urbina [facility] HEPATIC FUNCTION PANEL (8007 6) (ALB,T.PRO,BILI T,BU/BC,ALT,AST,ALK PHOS) 2024-02-27 09:37:00 Jose Carlos Urbina [facility] BASIC METABOLIC PANEL (NA, K , CL, CO2, GLUCOSE, BUN, CREATININE, CA) 2024-02-27 09:37:00 Jose Carlos Urbina [facility] CBC WITH DIFF 2024-02-27 09:37:00 Jose Carlos Urbina Artur [facility] CALPROTECTIN, FECAL 2024-02-26 22:49:00 Jose Carlos Urbina [facility] CALPROTECTIN, FECAL 2024-02-26 22:49:00 Jose Carlos Urbina [facility] XR KUB 2024-02-26 20:00:00 Jose Carlos Urbina [facility] XR KUB 2024-02-26 20:00:00 Jose Carlos Urbina [facility] MAGNESIUM 2024-02-26 16:17:00 Chitra [facility] HEPATIC FUNCTION PANEL (8007 6) (ALB,T.PRO,BILI T,BU/BC,ALT,AST,ALK PHOS) 2024-02-26 16:17:00 [facility]OLIC PANEL (NA, K , CL, CO2, GLUCOSE, BUN, CREATININE, CA) 2024-02-26 16:17:00 [facility] / INR 2024-02-26 16:17:00 [facility] 2024-02-26 16:17:00 Chitra [facility] HEPATIC FUNCTION PANEL (8007 6) (ALB,T.PRO,BILI T,BU/BC,ALT,AST,ALK PHOS) 2024-02-26 16:17:00 [facility] BASIC METABOLIC PANEL (NA, K , CL, CO2, GLUCOSE, BUN, CREATININE, CA) 2024-02-26 16:17:00 [facility]OT[facility] / INR 2024-02-26 16:17:00 [facility] MR ABDOMEN W WO CONTRAST MRCP 2024-02-25 17:15:21 Chitra [facility] MR ABDOMEN W WO CONTRAST MRCP 2024-02-25 17:15:21 Chitra [facility] CREATINE KINASE 2024-02-25 10:52:00 [facility] HEPATIC FUNCTION PANEL (8007 6) (ALB,T.PRO,BILI T,BU/BC,ALT,AST,ALK PHOS) 2024-02-25 10:52:00 Jose Carlos Urbina [facility] BASIC METABOLIC PANEL (NA, K , CL, CO2, GLUCOSE, BUN, CREATININE, CA) 2024-02-25 10:52:00 Jose Carlos Urbina [facility] CREATINE KINASE 2024-02-25 10:52:00 [facility] HEPATIC FUNCTION PANEL (8007 6) (ALB,T.PRO,BILI T,BU/BC,ALT,AST,ALK PHOS) 2024-02-25 10:52:00 Jose Carlos Urbina [facility] BASIC METABOLIC PANEL (NA, K , CL, CO2, GLUCOSE, BUN, CREATININE, CA) 2024-02-25 10:52:00 Jose Carlos Urbina [facility] MAGNESIUM 2024-02-24 09:54:00 [facility] HEPATIC FUNCTION PANEL (8007 6) (ALB,T.PRO,BILI T,BU/BC,ALT,AST,ALK PHOS) 2024-02-24 09:54:00 Jose Carlos Urbina [facility] BASIC METABOLIC PANEL (NA, K , CL, CO2, GLUCOSE, BUN, CREATININE, CA) 2024-02-24 09:54:00 Jose Carlos Urbina [facility] CBC WITH DIFF 2024-02-24 09:54:00 [facility] 2024-02-24 09:54:00 Chitra [facility] HEPATIC FUNCTION PANEL (8007 6) (ALB,T.PRO,BILI T,BU/BC,ALT,AST,ALK PHOS) 2024-02-24 09:54:00 Jose Carlos Urbina [facility] BASIC METABOLIC PANEL (NA, K , CL, CO2, GLUCOSE, BUN, CREATININE, CA) 2024-02-24 09:54:00 Jose Carlos Urbina [facility] CBC WITH DIFF 2024-02-24 09:54:00 [facility] POCT GLUCOSE (AUTOMATED) 2024-02-24 01:34:00 Hany Lee [facility] POCT GLUCOSE (AUTOMATED) 2024-02-24 01:34:00 Hany Lee [facility] HEPATIC FUNCTION PANEL (8007 6) (ALB,T.PRO,BILI T,BU/BC,ALT,AST,ALK PHOS) 2024-02-23 17:51:00 Chitra [facility] CBC WITH DIFF 2024-02-23 17:51:00 Chitra [facility] HAV ANTIBODY (IGG AND IGM) 2024-02-23 17:51:00 Chitra [facility] ENDOMYSIAL AB, IGA BY IFA 2024-02-23 17:51:00 Chitra [facility] VITAMIN D, 25-OH 2024-02-23 17:51:00 Chitra [facility] HEPATIC FUNCTION PANEL (8007 6) (ALB,T.PRO,BILI T,BU/BC,ALT,AST,ALK PHOS) 2024-02-23 17:51:00 [facility] CBC WITH DIFF 2024-02-23 17:51:00 Chitra [facility] HAV ANTIBODY (IGG AND IGM) 2024-02-23 17:51:00 Chitra [facility] ENDOMYSIAL AB, IGA BY IFA 2024-02-23 17:51:00 Chitra [facility] VITAMIN D, 25-OH 2024-02-23 17:51:00 [facility] INFLU[facility] A/B RSV COVID NAAT 2024-02-22 20:12:00 [facility] ONLY COVID INTERPRETATION 2024-02-22 20:12:00 [facility] INFLUENZA A/B RSV COVID NAAT 2024-02-22 20:12:00 [facility] COVID INTERPRETATION 2024-02-22 20:12:00 [facility] XR CHEST 2 VW 2024-02-22 17:16:00 [place], Adriana [facility] XR CHEST 2 VW 2024-02-22 17:16:00 [place], Adriana [facility] US ABDOMEN LIMITED 2024-02-22 16:59:52 [place], Adriana [facility] US ABDOMEN LIMITED 2024-02-22 16:59:52 [place], Adriana [facility] LIPASE 2024-02-22 15:19:00 [facility] TEST, SERUM 2024-02-22 15:19:00 Stephanie [facility] C-REACTIVE PROTEIN 2024-02-22 15:19:00 Chitra [facility] TROPONIN I 2024-02-22 15:19:00 Stephanie [facility] HEPATIC FUNCTION PANEL (8007 6) (ALB,T.PRO,BILI T,BU/BC,ALT,AST,ALK PHOS) 2024-02-22 15:19:00 [facility] COMP. METABOLIC PANEL ([id number]) 2024-02-22 15:19:00 Stephanie [facility] URINE DRUG (IMMUNOASSAY) - COMPREHENSIVE DRUG SCREEN 2024-02-22 15:19:00 Chitra [facility] SEDIMENTATION RATE 2024-02-22 15:19:00 Chitra [facility] CBC WITH DIFF 2024-02-22 15:19:00 Stephanie [facility] URINALYSIS 2024-02-22 15:19:[facility] 2024-02-22 15:19:00 [facility] HEPATITIS B SURFACE ANTIGEN 2024-02-22 15:19:00 [facility] HCV ANTIBODY 2024-02-22 15:19:00 [facility] HBC ANTIBODY (IGM & IGG) 2024-02-22 15:19:00 Chitra [facility] HIV 1/2 AG-AB WITH REFLEX 2024-02-22 15:19:00 Chitra [facility] DEAMIDATED GLIADIN IGG 2024-02-22 15:19:00 Chitra [facility] LIPASE 2024-02-22 15:19:00 Stephanie [facility] TEST, SERUM 2024-02-22 15:19:00 Stephanie [facility] C-REACTIVE PROTEIN 2024-02-22 15:19:00 Chitra [facility] TROPONIN I 2024-02-22 15:19:00 Stephanie [facility] HEPATIC FUNCTION PANEL (8007 6) (ALB,T.PRO,BILI T,BU/BC,ALT,AST,ALK PHOS) 2024-02-22 15:19:00 Chitra [facility] COMP. METABOLIC PANEL ([id number]) 2024-02-22 15:19:00 Stephanie [facility] URINE DRUG (IMMUNOASSAY) - COMPREHENSIVE DRUG SCREEN 2024-02-22 15:19:00 Chitra [facility] SEDIMENTATION RATE 2024-02-22 15:19:00 Chitra [facility] CBC WITH DIFF 2024-02-22 15:19:00 Stephanie [facility] URINALYSIS 2024-02-22 15:19:00 Stephanie [facility] HEPATITIS B SURFACE ANTIBODY 2024-02-22 15:19:00 Chitra [facility] HEPATITIS B SURFACE ANTIGEN 2024-02-22 15:19:00 Chitra [facility] HCV ANTIBODY 2024-02-22 15:19:00 Chitra [facility] HBC ANTIBODY (IGM & IGG) 2024-02-22 15:19:00 Chitra [facility] HIV 1/2 AG-AB WITH REFLEX 2024-02-22 15:19:00 Chitra [facility] DEAMIDATED GLIADIN IGG 2024-02-22 15:19:00 Chitra [facility] COMP. METABOLIC PANEL ([id number]) 2023-05-19 17:22:[address] [facility] CT ABDOMEN PELVIS W CONTRAST 2023-05-19 15:59:[address] [facility] LIPASE 2023-05-19 15:43:[address] [facility] CBC WITH DIFF 2023-05-19 15:43:[address] [facility] URINALYSIS 2023-05-19 15:32:[address] [facility] POCT TEST 2023-05-19 15:31:[address] [facility] CONSENT/REFUSAL FOR DIAGNOSI S AND TREATMENT 2023-05-19 14:37:15 Doctor Unassigned, Dulac [facility] PHOSPHORUS 2023-01-15 08:15:00 Benita Rockwell [facility] MAGNESIUM 2023-01-15 08:15:00 Benita Rockwell [facility] BASIC METABOLIC PANEL (NA, K , CL, CO2, GLUCOSE, BUN, CREATININE, CA) 2023-01-15 08:15:00 Benita Rockwell [facility] CBC WITH DIFF 2023-01-15 08:15:00 Benita Rockwell Daphnie [facility] PROTHROMBIN TIME / INR 2023-01-15 08:15:00 [facility] 2023-01-14 10:14:00 [facility]OS[facility]US 2023-01-14 10:14:00 Moiz [facility] BASIC METABOLIC PANEL (NA, K , CL, CO2, GLUCOSE, BUN, CREATININE, CA) 2023-01-14 10:14:00 Moiz [facility] CBC WITH DIFF 2023-01-14 10:14:00 Moiz [facility] PHOSPHORUS 2023-01-14 10:14:00 Moiz [facility] MAGNESIUM 2023-01-14 10:14:00 Moiz [facility] BASIC METABOLIC PANEL (NA, K , CL, CO2, GLUCOSE, BUN, CREATININE, CA) 2023-01-14 10:14:00 Moiz [facility] CBC WITH DIFF 2023-01-14 10:14:00 Moiz [facility] CBC WITH DIFF 2023-01-13 10:45:00 Vaishnavi [facility] BASIC METABOLIC PANEL (NA, K , CL, CO2, GLUCOSE, BUN, CREATININE, CA) 2023-01-13 10:45:00 Vaishnavi, [facility] MAGNESIUM 2023-01-13 10:45:00 Vaishnavi, [facility] PHOSPHORUS 2023-01-13 10:45:00 Vaishnavi, [facility] HEPATIC FUNCTION PANEL (8007 6) (ALB,T.PRO,BILI T,BU/BC,ALT,AST,ALK PHOS) 2023-01-13 10:45:00 Vaishnavi, [facility] PHOSPHORUS 2023-01-13 10:45:00 Vaishnavi, [facility] MAGNESIUM 2023-01-13 10:45:00 Vaishnavi, [facility] HEPATIC FUNCTION PANEL (8007 6) (ALB,T.PRO,BILI T,BU/BC,ALT,AST,ALK PHOS) 2023-01-13 10:45:00 Vaishnavi, [facility] BASIC METABOLIC PANEL (NA, K , CL, CO2, GLUCOSE, BUN, CREATININE, CA) 2023-01-13 10:45:00 Vaishnavi, [facility] CBC WITH DIFF 2023-01-13 10:45:00 Vaishnavi, [facility] GLUCOSE BODY FLUID 2023-01-12 20:44:00 Vaishnavi, [facility] BODY FLUID MANUAL DIFF 2023-01-12 20:44:00 Vaishnavi, [facility] T.PROTEIN BODY FLUID 2023-01-12 20:44:00 Vaishnavi, [facility] ASPIRATE OR ABSCESS CULTURE(AEROBIC/ANAEROBIC) 2023-01-12 20:44:00 Vaishnavi, [facility] LDH TOTAL BODY FLUID 2023-01-12 20:44:00 Vaishnavi, [facility] GLUCOSE BODY FLUID 2023-01-12 20:44:00 Vaishnavi, [facility] T.PROTEIN BODY FLUID 2023-01-12 20:44:00 Vaishnavi, [facility] BODY FLUID DIRECT COUNT 2023-01-12 20:44:00 Vaishnavi, [facility] ASPIRATE OR ABSCESS CULTURE(AEROBIC/ANAEROBIC) 2023-01-12 20:44:00 Vaishnavi, [facility] LDH TOTAL BODY FLUID 2023-01-12 20:44:00 Vaishnavi, [facility] PROTHROMBIN TIME / INR 2023-01-12 08:13:00 Vaishnavi, [facility] PROTHROMBIN TIME / INR 2023-01-12 08:13:00 Vaishnavi, [facility] COMP. METABOLIC PANEL ([id number]) 2023-01-12 03:49:00 Ricky [facility] COMP. METABOLIC PANEL ([id number]) 2023-01-12 03:49:00 Zehra García [facility] CT ABDOMEN PELVIS W CONTRAST 2023-01-12 03:32:06 Ricky Zehra Joana [facility] CT ABDOMEN PELVIS W CONTRAST 2023-01-12 03:32:06 Zehra García Joana [facility] POCT TEST 2023-01-12 03:02:00 Zehra García [facility] POCT TEST 2023-01-12 03:02:00 Zehra García [facility] URINALYSIS 2023-01-12 02:56:00 Zehra García Joana [facility] LIPASE 2023-01-12 02:56:00 Zehra García [facility] TOTAL BETA HCG ASSAY 2023-01-12 02:56:00 Ricky [facility] CBC WITH DIFF 2023-01-12 02:56:00 Ricky [facility] EXTRA TUBE ORANGE 2023-01-12 02:56:00 Artur [facility] EXTRA TUBE LAV 2023-01-12 02:56[facility]00 [facility]12 02:56:00 [facility] T[facility] BETA HCG ASSAY 2023-01-12 02:56:00 Zehra García [facility] CBC WITH DIFF 2023-01-12 02:56:00 [facility] URINALYSIS 2023-01-12 02:56:00 Ricky [facility] EXTRA TUBE LAV 2023-01-12 02:56:00 [facility] ORANGE 2023-01-12 02:56:00 Miguel Ángel Siddiqui [facility] CONSENT/REFUSAL FOR DIAGNOSI S AND TREATMENT 2023-01-12 01:46:10 Doctor Unassigned, Dulac [facility] CONSENT/REFUSAL FOR DIAGNOSI S AND TREATMENT 2023-01-12 01:46:10 Doctor Unassigned, Dulac [facility] ASSIGNMENT OF BENEFITS 2022-11-21 19:49:02 Doctor Unassigned, Dulac [facility] ASSIGNMENT OF BENEFITS 2022-11-21 19:49:02 Doctor Unassigned, Dulac [facility] CONSENT/REFUSAL FOR DIAGNOSI S AND TREATMENT 2022-11-21 18:03:25 Doctor Unassigned, Dulac [facility] CONSENT/REFUSAL FOR DIAGNOSI S AND TREATMENT 2022-11-21 18:03:25 Doctor Unassigned, Dulac [facility] EMERGENCY SERVICES AGREEMENT S AND AUTHORIZATIONS 2022-11-21 05:01:00 Doctor Unassigned, Dulac [facility] CONSENT/REFUSAL FOR DIAGNOSI S AND TREATMENT 2022-09-05 13:42:02 Doctor Unassigned, Dulac [facility] LIPASE 2022-07-31 23:13:00 Blane [facility] TEST, SERUM 2022-07-31 23:13:00 Blane [facility] COMP. METABOLIC PANEL ([id number]) 2022-07-31 23:13:00 Blane [facility] CBC WITH DIFF 2022-07-31 23:13:00 Blane [facility] CONSENT/REFUSAL FOR DIAGNOSI S AND TREATMENT 2022-07-31 22:49:17 Doctor Unassigned, Dulac [facility] XR ANKLE 3+ VW RIGHT 2022-07-15 16:00:00 Beba Kaur [facility] XR FOOT 3+ VW RIGHT 2022-07-15 16:00:00 Beba Kaur [facility] XR FOOT 3+ VW RIGHT 2022-07-15 16:00:00 Beba Kaur [facility] PATIENT FINANCIAL POLICY 2022-07-15 15:25:53 Doctor Unassigned, Dulac [facility] POCT MOLECULAR STREP 2022-06-23 16:06:00 Unknown, Attending [facility] ASSIGNMENT OF BENEFITS 2022-06-23 15:18:28 Doctor Unassigned, Dulac [facility] COMP. METABOLIC PANEL ([id number]) 2022-05-05 19:14:00 Karon Norton [facility] CBC WITH DIFF 2022-05-05 19:14:00 Karon Norton [facility] POCT TEST 2022-05-05 19:00:00 Karon Norton [facility] URINALYSIS 2022-05-05 18:58:00 Karon Norton [facility] CT ABDOMEN PELVIS WO CONTRAST 2022-04-26 15:11:00 Singer [facility] COMP. METABOLIC PANEL ([id number]) 2022-04-26 14:49:00 Singer [facility] CBC WITH DIFF 2022-04-26 14:49:00 Singer [facility] URINALYSIS 2022-04-26 14:49:00 Singer [facility] POCT TEST 2022-04-26 14:45:00 Singer [facility] CONSENT/REFUSAL FOR DIAGNOSI S AND TREATMENT 2022-04-26 14:22:29 Doctor Unassigned, Dulac [facility] POCT TEST 2022-04-26 01:22:00 Singer [facility] ASSIGNMENT OF BENEFITS 2022-04-26 00:54:02 Doctor Unassigned, Dulac [facility] URINALYSIS 2022-04-26 00:45:00 Singer [facility] CONSENT/REFUSAL FOR DIAGNOSI S AND TREATMENT 2022-04-26 00:16:47 Doctor Unassigned, Dulac [facility] BASIC METABOLIC PANEL (NA, K , CL, CO2, GLUCOSE, BUN, CREATININE, CA) 2022-04-07 22:35:00 Olamide Garvin [facility] CBC WITH DIFF 2022-04-07 22:35:00 Olamide Garvin [facility] URINALYSIS 2022-04-07 21:36:00 Olamide Garvin [facility] URINE DRUG (IMMUNOASSAY) - COMPREHENSIVE DRUG SCREEN W/O REFLEX 2022-04-07 21:36:00 Olamide Garvin [facility] CONSENT/REFUSAL FOR DIAGNOSI S AND TREATMENT 2022-04-07 19:29:15 Doctor Unassigned, Dulac [facility] POCT TEST 2022-03-24 14:07:00 Kellie Piper [facility] CONSENT/REFUSAL FOR DIAGNOSI S AND TREATMENT 2022-03-24 13:27:20 Doctor Unassigned, Dulac [facility] CT ABDOMEN PELVIS WO CONTRAST 2022-03-15 14:09:04 Lydia Colmenares [facility] URINALYSIS 2022-03-15 13:53:00 Lydia Colmenares [facility] POCT TEST 2022-03-15 13:52:00 Lydia Colmenares [facility] CONSENT/REFUSAL FOR DIAGNOSI S AND TREATMENT 2022-03-15 13:37:02 Doctor Unassigned, [place] [facility] POCT TEST 2022-03-11 14:59:00 Angelica Viveros [facility] FLU VACC (), 6 MO-6 4 YRS, .5ML, IM, QUAD (FLUCELVAX) 2022-02-27 13:34:55 Ca Martinez [facility] NOTICE OF PRIVACY PRACTICES 2022-02-21 06:06:30 Doctor Unassigned, [place] [facility] CONSENT/REFUSAL FOR DIAGNOSI S AND TREATMENT 2022-02-21 06:03:41 Doctor Unassigned, [place] [facility] XR ANKLE <3 VW RIGHT 2022 17:56:42 Maggie Hamilton [facility] CT ABDOMEN PELVIS W CONTRAST 2022 17:44:17 Maggie Hamilton [facility] CT TRAUMA CERVICAL SPINE WO CONTRAST 2022 17:43:49 Maggie Hamilton [facility] POCT TEST 2022 17:27:00 Maggie Hamilton [facility] COMP. METABOLIC PANEL ([id number]) 2022 17:17:00 Maggie Hamilton [facility] CBC WITH DIFF 2022 17:17:00 Maggei Hamilton [facility] CONSENT/REFUSAL FOR DIAGNOSI S AND TREATMENT 2022 16:53:13 Doctor Unassigned, [place] [facility] [facility] US GALL BLADDER 2022-01-18 12:31:09 Rosendo Levy [facility] US PELVIS COMPLETE WITH TRANSVAGINAL 2022-01-18 12:21:13 Melvin Zhao [facility] CT ABDOMEN PELVIS W CONTRAST 2022-01-18 11:20:50 Melvin Zhao [facility] POCT TEST 2022-01-18 10:57:00 Juan Kennedy [facility] COVID-19 (ID NOW RAPID TESTING) 10:57:00 Juan Kennedy [facility] URINALYSIS 2022-01-18 10:47:00 Juan Kennedy [facility] LIPASE 2022-01-18 10:29:00 Juan Kennedy [facility] TEST, SERUM 2022-01-18 10:29:00 Juan Kennedy [facility] HEPATIC FUNCTION PANEL (8007 6) (ALB,T.PRO,BILI T,BU/BC,ALT,AST,ALK PHOS) 2022-01-18 10:29:00 Juan Kennedy [facility] BASIC METABOLIC PANEL (NA, K , CL, CO2, GLUCOSE, BUN, CREATININE, CA) 2022-01-18 10:29:00 Juan Kennedy [facility] CBC WITH DIFF 2022-01-18 10:29:00 Juan Kennedy [facility] CONSENT/REFUSAL FOR DIAGNOSI S AND TREATMENT 2022-01-18 10:13:31 Doctor Unassigned, Dulac [facility] CT HEAD WO CONTRAST 2022-01-15 15:22:29 Maura Cox [facility] TEST, SERUM 2022-01-15 14:36:00 Maura Cox [facility] BASIC METABOLIC PANEL (NA, K , CL, CO2, GLUCOSE, BUN, CREATININE, CA) 2022-01-15 14:36:00 Maura Cox [facility] CBC WITH DIFF 2022-01-15 14:36:00 Maura Cox [facility] CONSENT/REFUSAL FOR DIAGNOSI S AND TREATMENT 2022-01-15 13:28:12 Doctor Unassigned, Dulac [facility] XR CERVICAL SPINE 4 VW 2022-01-09 00:29:16 Gabriela [facility] XR LUMBAR SPINE 4 VW 2022-01-09 00:29:16 Gabriela [facility] XR SPINE THORACIC 3 VW 2022-01-09 00:29:16 Gabriela, Humberto [facility] URINALYSIS 2022-01-08 23:50:00 Humberto Ochoa [facility] CONSENT/REFUSAL FOR DIAGNOSI S AND TREATMENT 2022-01-08 22:51:08 Doctor Unassigned, Dulac [facility] GALV ONLY - VAGINAL PATHOGEN S BY NUCLEIC ACID TESTING 2021-12-12 18:37:00 Prasanna Vargas [facility] URINE CULTURE 2021-12-12 18:32:00 Prasanna Vargas [facility] POCT TEST 2021-12-12 18:31:00 Prasanna Vargas [facility] POCT URINALYSIS W/O SPECIFIC GRAVITY 2021-12-12 18:31:00 Prasanna Vargas [facility] Encounters Start Date/Time End Date/Time Encounter Type Admission Type Attending [facility] Care Department Encounter ID Source 2024-08-04 08:31:01 Outpatient Tiara Dorado [facility] [id number] [facility] 2021-03-14 03:14:31 Emergency [facility] [id number] [facility] 2021-03-13 20:05:20 [facility] [id number] [facility] 2021-03-13 12:48:28 [facility] [id number] [facility] 2021-03-13 02:43:51 [facility] [id number] [facility] 2021-03-13 00:27:09 [facility] [id number] [facility] 2021-03-12 22:10:36 [facility] [id number] [facility] 2021-03-12 20:04:05 Emergency [facility] [id number] [facility] 2021-03-12 15:25:05 [facility] [id number] [facility] 2021-03-12 11:43:36 [facility] [id number] [facility] 2021-03-12 07:41:37 [place] [facility] [place] [id number] [facility] 2021-03-12 05:43:47 Emergency [facility] [id number] [facility] 2021-03-12 03:43:41 Emergency [facility] [id number] [facility] 2021-03-12 01:31:27 Emergency [facility] [id number] [facility] 2021-03-12 00:56:44 Emergency X [facility] ERT [id number] [facility] 2021-03-12 00:56:31 Emergency [facility] [id number] [facility] 2021-03-11 17:47:02 Emergency [facility] [id number] [facility] 2021-03-11 16:27:15 Emergency [facility] [id number] [facility] 2021-03-11 12:00:58 Emergency [facility] [place] [id number] [facility] 2021-03-11 10:33:59 Emergency [facility] [place] [id number] [facility] 2021-03-11 01:36:52 Emergency [facility] [id number] [facility] 2021-03-10 23:35:34 Emergency [facility] [place] [id number] [facility] 2021-03-10 19:06:16 Emergency [facility] [id number] [facility] 2021-03-10 12:39:47 Emergency [facility] [id number] [facility] 2021-03-10 06:54:04 Emergency [facility] [id number] [facility] 2021-03-09 13:25:44 Outpatient P [facility] [id number] [facility] 2021-03-09 13:08:01 Outpatient [facility] [id number] [facility] 2021-03-09 12:37:25 Outpatient P [facility] [id number] [facility] 2021-03-09 11:51:20 Outpatient [facility] [id number] [facility] 2024-08-16 08:05:00 2024-08-16 10:57:00 Emergency X [place]ON[place]A [place] LEONELA [facility] ERT [id number] [facility] 2024-08-16 08:05:00 2024-08-16 10:57:00 Emergency Leonela Veloz [facility] 1.114 350.1.13.10 4.2.7.2.686 [id number] [facility] 2024-08-02 10:16:00 2024-08-02 12:25:00 Emergency X ALEKSANDR STEWART JULIO [facility] ERT [id number] [facility] 2024-08-02 10:16:00 2024-08-02 12:25:00 Emergency Aleksandr Stewart [facility] ([facility] 1.114 350.1.13.10 4.2.7.2.686 [id number] [facility] 2024-07-27 17:21:07 2024-07-27 17:21:[address] [facility] [id number] [facility] Gil 2024-02-28 00:00:00 2024-06-27 06:46:51 Orders Only Doctor Unassigned, Dulac Doctor Unassigned, Dulac [facility] ([place]) 1.114 350.1.13.10 4.2.7.2.686 [id number] [facility] 2022-08-27 00:00:00 2024-06-27 02:42:04 Orders Only Palak Marrufo Perla [facility] 1.114 350.1.13.10 4.2.7.2.686 [id number] [id number] [facility] 2022-08-28 00:00:00 2024-06-27 02:42:02 Orders Only Marrufo, Palak Marrufo, Palak [facility] TALYA?[facility] BU[facility] 1.2.840.114 350.1.13.10 4.2.7.2.686 [id number] [facility] 2022-08-29 00:00:00 2024-06-27 02:41:59 Orders Only Marrufo, Palak Marrufo, Palak [facility] TALYA?[facility] 1.2.840.114 350.1.13.10 4.2.7.2.686 [id number] [facility] 2022-09-24 00:00:00 2024-06-27 02:41:25 Orders Only Marrufo, Palak Marrufo, Palak [facility] 1.2840.114 350.1.13.10 4.2.7.2.686 [id number] [facility] 2022-09-27 00:00:00 2024-06-27 02:41:19 Orders Only Marrufo, Palak Marrufo, Aplak [facility] TALYA?[facility] 1.2840.114 350.1.13.10 4.2.7.2.686 [id number] [facility] 2022-10-02 00:00:00 2024-06-27 02:41:14 Orders Only Marrufo, Palak Marrufo, Palak [facility] TALYA?[facility] 1.2840.114 350.1.13.10 4.2.7.2.686 [id number] [facility] 2022-11-15 00:00:00 2024-06-27 02:40:23 Orders Only Marrufo, Palak Marrufo, Palak [facility] TALYA?[facility] 1.2840.114 350.1.13.10 4.2.7.2.686 [id number] [facility] 2024-05-19 12:49:00 2024-05-19 16:37:00 Emergency X ANAMARIA GONZALES DONNELL [facility] ERT [id number] [facility] 2024-05-19 12:49:00 2024-05-19 16:37:00 Emergency Anamaria Gonzales [facility] 1.2.840.114 350.1.13.10 4.2.7.2.686 [id number] [facility] 2024-04-19 07:55:00 2024-04-19 09:58:00 Emergency X ROSENDO LEVY BRENT [facility] ERT [id number] [facility] 2024-04-19 07:55:00 2024-04-19 09:58:00 Emergency Rosendo Levy [facility] 1.2840.114 350.1.13.10 4.2.7.2.686 [id number] [facility] 2024-03-18 00:00:00 2024-04-18 18:19:35 Patient Secure Msg Doctor Unassigned, Dulac Doctor Unassigned, Dulac [facility] ([place]) 1.2840.114 350.1.13.10 4.2.7.2.686 [id number] [facility] 2024-04-12 11:54:00 2024-04-12 14:39:00 Emergency T ARAM PARADA [facility] STR [id number] [facility] 2024-04-12 11:54:00 2024-04-12 14:39:00 Emergency Aram Parada [facility] ([facility]) 1.2.840.114 350.1.13.10 4.2.7.2.686 [id number] [facility] 2024-04-12 09:23:00 2024-04-12 10:42:00 Emergency X MAGGIE HAMILTON SANDRA [facility] ERT [id number] [facility] 2024-04-12 09:23:00 2024-04-12 10:42:00 Emergency Onesimo, Olamide Maggie Wise [facility] 1.2840.114 350.1.13.10 4.2.7.2.686 [id number] [facility] 2024-03-10 09:43:00 2024-03-13 10:40:00 Inpatient X TAJ DE PAZ MICHAEL [facility] [id number] [facility] 2024-03-10 09:43:00 2024-03-13 10:40:00 [facility] Manuel, Jose Mao, Taj Milner [facility] ([facility]) 1.2840.114 350.1.13.10 4.2.7.2.686 [id number] [facility] 2024-03-06 00:00:00 2024-03-06 08:40:48 Transition of Care Odell, Marlys Jose R, Marlys [place] [place] 1.2840.114 350.1.13.10 4.2.7.2.686 [id number] [facility] 2024-03-04 06:46:00 2024-03-05 16:30:00 Outpatient X JOSE MANDUJANO MYRNA [facility] [id number] [facility] 2024-03-04 06:46:00 2024-03-05 16:30:00 Emergency Jesus Muñoz Myrna [facility] ([facility]) 1.2840.114 350.1.13.10 4.2.7.2.686 [id number] [facility] 2024-03-03 00:00:00 2024-03-04 15:45:46 Patient Secure Msg Jas Buenrostro [facility] ([facility]) 1.2.840.114 350.1.13.10 4.2.7.2.686 [id number] [facility] 2024-03-03 00:00:00 2024-03-03 12:14:14 Telephone Giselle Vance [facility] ([place]) 1.2.840.114 350.1.13.10 4.2.7.2.686 [id number] [facility] 2024-02-28 00:00:00 2024-02-28 09:08:41 Transition of Care Tc Renteria Michele [address] [place] 1.2840.114 350.1.13.10 4.2.7.2.686 [id number] [facility] 2024-02-22 09:35:00 2024-02-27 16:59:00 Inpatient X HANY LEE [facility] NATTY [id number] [facility] 2024-02-22 09:35:00 2024-02-27 16:59:00 Hospital Encounter Colin Jones Megan A [facility] ([facility]) 1.2840.114 350.1.13.10 4.2.7.2.686 [id number] [facility] 2024-02-27 09:40:00 2024-02-27 10:51:00 Surgery BuenrostroSaulo vargashif [facility] 1.2.840.114 350.1.13.10 4.2.7.2.686 [id number] [facility] 2024-02-27 09:22:00 2024-02-27 10:26:00 Anesthesia Event Peter Reece [facility] 1.2.840.114 350.1.13.10 4.2.7.2.686 [id number] [facility] 2024-02-24 00:00:00 2024-02-24 09:18:09 Telephone Naty Buenrostro [facility] 1.2.840.114 350.1.13.10 4.2.7.2.686 [id number] [facility] 2023-12-23 15:39:53 2023-12-23 15:39:53 Outpatient SFA [facility] [id number] [facility] Gil 2023-12-08 14:51:46 2023-12-08 14:51:[address] [facility] [id number] Willis Gil 2023-09-12 00:00:00 2023-09-12 00:00:00 Outpatient R ROLDAN WALKER [facility] [id number] [facility] 2023-08-26 00:00:00 2023-08-26 00:00:00 Transition of Care Odell Marlys WAIApril TELLO KAMERON 1.2.840.114 350.1.13.10 4.2.7.2.686 [id number] [facility] 2023-08-23 08:31:00 2023-08-24 13:25:00 Outpatient X ROLDAN WALKER [facility] [place] [id number] [facility] 2023-08-04 14:56:23 2023-08-04 14:56:23 Outpatient SFA SFA [id number] Willis Rivera Jeffery 2023-06-27 14:47:45 2023-06-27 14:47:45 Outpatient SFA SFA [id number] Willis Gil 2023-05-19 09:04:00 2023-05-19 12:20:00 Emergency X TOD AGUILAR [facility] ERT [id number] [facility] 2023-05-19 09:04:00 2023-05-19 12:20:[address] [facility] 1..114 350.1.13.10 4.2.7.2.686 [id number] [facility] 2023-04-05 00:00:00 2023-04-05 00:00:00 Patient Secure Prasanna Kang [facility] PROFESS[facility] NAL BUILDING 1..114 350.1.13.10 4.2.7.2.686 [id number] [facility] 2023-02-14 12:59:23 2023-02-14 12:59:23 Outpatient SFA SFA [id number] Willis Gil 2023-02-06 18:19:02 2023-02-06 18:19:02 Outpatient SFA SFA [id number] Willis Gil 2023-01-30 00:00:00 2023-01-30 00:00:00 Outpatient ERICKSON_R [facility] [id number] [facility] 2023-01-16 00:00:00 2023-01-16 00:00:00 Transition of Care Marlys Odell 1..114 350.1.13.10 4.2.7.2.686 [id number] [facility] 2023-01-11 21:06:00 2023-01-15 16:00:00 Inpatient X KUN STEELE [facility] DAVID [id number] [facility] 2023-01-11 21:06:00 2023-01-15 16:00:00 Hospital Encounter Miguel Ángel Siddiqui, Kun Beltran [facility] 1..114 350.1.13.10 4.2.7.2.686 [id number] [facility] 2023-01-12 00:00:00 2023-01-12 00:00:00 Travel 1.2.840.1 67763.1.1 3.104.2.7 .3.226363 .8 1.2.840.114 350.1.13.10 4.2.7.3.698 084.8 [id number] [facility] 2023-01-11 00:00:00 2023-01-11 00:00:00 Travel 1.2.840.1 58524.1.1 3.104.2.7 .3.681000 .8 1.2.840.114 350.1.13.10 4.2.7.3.698 084.8 [id number] [facility] 2022-12-28 00:00:00 2022-12-28 00:00:00 Outpatient ERICKSON_R [facility] [id number] 2022-12-14 18:37:13 2022-12-14 18:37:[address] [facility] [id number] Willis Gil 2022-12-13 00:00:00 2022-12-13 00:00:00 Outpatient ERICKSON_R [facility] [id number] 2022-12-12 09:30:00 2022-12-12 09:30:00 Outpatient PRASANNA LOOMIS [facility] [id number] [facility] 2022-11-21 13:08:00 2022-11-21 16:45:00 Emergency MANJU BARRAGAN [facility] ERT [id number] [facility] 2022-11-21 13:08:00 2022-11-21 16:45:00 Emergency Oc Bridges Christopher 1.2.840.1 [id number] 3.104.2.7 .3.078061 .8 [id number] [facility] 2022-11-21 00:00:00 2022-11-21 00:00:00 Travel 1.2.840.1 35222.1.1 3.104.2.7 .3.769888 .8 1.2.840.114 350.1.13.10 4.2.7.3.698 [id number] [facility] 2022-11-18 10:08:00 2022-11-18 10:08:00 Outpatient [facility] [id number] Willis Gil 2022-11-15 09:40:00 2022-11-15 09:40:00 Outpatient JEREMY LABOY CHRISTINE [facility] [id number] [facility] 2022-11-09 15:26:18 2022-11-09 15:26:18 Outpatient [facility] [id number] Willis Gil 2022-11-06 13:00:00 2022-11-06 13:00:00 Outpatient CA ARAUZ [facility] [id number] [facility] 2022-10-29 00:00:00 2022-10-29 00:00:00 Patient Secure Msg Jeremy Greene 1.2.840.1 36380.1.1 3.104.2.7 .3.224509 .8 [id number] [facility] 2022-10-29 00:00:00 2022-10-29 00:00:00 Patient Secure Msg Prasanna Vargas 1.2.840.1 27740.1.1 3.104.2.7 .3.158479 .8 [id number] [facility] 2022-10-03 00:00:00 2022-10-03 00:00:00 Letter (Out) [facility] 1.2.840.114 350.1.13.10 4.2.7.2.686 [id number] [facility] 2022-10-02 10:00:00 2022-10-02 10:00:00 Outpatient DESIREE SALMON [facility] [id number] [facility] 2022-10-01 09:40:00 2022-10-01 09:40:00 Outpatient REJI COOPER [facility] [id number] [facility] 2022-09-25 00:00:00 2022-09-25 00:00:00 Telephone Rad Serra [facility] 1.2.840.114 350.1.13.10 4.2.7.2.686 [id number] [facility] 2022-09-21 09:30:00 2022-09-21 09:30:00 Outpatient LONNY MCKINLEYSSICA [facility] [id number] [facility] 2022-09-21 00:00:00 2022-09-21 00:00:00 Letter (Out) [facility] OFF[facility] BUILD[facility] 1.2.840.114 350.1.13.10 4.2.7.2.686 [id number] [facility] 2022-09-21 00:00:00 2022-09-21 00:00:00 Telephone [facility] 1.2.840.114 350.1.13.10 4.2.7.2.686 [id number] [facility] 2022-09-21 00:00:00 2022-09-21 00:00:00 Telephone [facility] 1.2.840.114 350.1.13.10 4.2.7.2.686 [id number] [facility] 2022-09-14 09:30:00 2022-09-14 09:30:00 Outpatient KASSANDRA MCKINLEY [facility] [id number] [facility] 2022-09-12 00:00:00 2022-09-12 00:00:00 [facility] 1.2.840.114 350.1.13.10 4.2.7.2.686 [id number] [facility] 2022-09-07 11:30:00 2022-09-07 11:30:00 [facility] [id number] [facility] 2022-09-05 08:44:00 2022-09-05 13:15:00 Emergency X KENNEDY HUTCHINS [facility] ERT [id number] [facility] 2022-09-05 08:44:00 2022-09-05 13:15:[address] [facility] 1.2.840.114 350.1.13.10 4.2.7.2.686 [id number] [facility] 2022-09-04 00:00:00 2022-09-04 00:00:00 [facility] 1.2.840.114 350.1.13.10 4.2.7.2.686 [id number] [facility] 2022-09-04 00:00:00 2022-09-04 00:00:00 Patient Secure Msg Rad Serra [facility] PROFESSIO NAL BUILDING 1.2.840.114 350.1.13.10 4.2.7.2.686 [id number] [facility] 2022-08-29 09:00:00 2022-08-29 09:00:00 Outpatient R DESIREE FINNEY [facility] [id number] [facility] 2022-08-14 00:00:00 2022-08-14 00:00:00 Patient Secure Msg Doctor Unassigned, Dulac [facility] 1.2.840.114 350.1.13.10 4.2.7.2.686 [id number] [facility] 2022-07-31 17:56:00 2022-07-31 20:30:00 Emergency X MANJU ARGUELLES [facility] ERT [id number] [facility] 2022-07-31 17:56:00 2022-07-31 20:30:[address] [facility] 1.2840.114 350.1.13.10 4.2.7.2.686 [id number] [facility] 2022-07-15 09:46:45 2022-07-15 23:59:00 Outpatient R BEBA KAUR [facility] [id number] [facility] 2022-07-15 09:46:45 2022-07-15 23:59:00 Hospital Encounter [facility] 1.840.114 350.1.13.10 4.2.7.2.686 [id number] [facility] 2022-07-15 09:46:45 2022-07-15 23:59:00 Hospital Encounter Beba Kaur [facility] 1.2840.114 350.1.13.10 4.2.7.2.686 [id number] [facility] 2022-07-15 09:20:00 2022-07-15 10:29:17 Urgent Care Beba Kaur Unknown, Attending [facility] 1.2840.114 350.1.13.10 4.2.7.2.686 [id number] [facility] 2022-07-15 00:00:00 2022-07-15 00:00:00 Orders Only Doctor Unassigned, [facility] 1.2.840.114 350.1.13.10 4.2.7.2.686 [id number] [facility] 2022-06-23 09:20:00 2022-06-23 10:27:39 Outpatient R PAUL SAMAYOA [facility] [id number] [facility] 2022-06-23 09:20:00 2022-06-23 10:27:39 Urgent Care Paul Samayoa Unknown, Attending [facility] 1.2.840.114 350.1.13.10 4.2.7.2.686 [id number] [facility] 2022-06-23 00:00:00 2022-06-23 00:00:00 Orders Only Doctor Unassigned, [place] 1.2.840.114 350.1.13.10 4.2.7.2.686 [id number] [facility] 2022-06-15 09:40:00 2022-06-15 09:40:00 Outpatient JEREMY LABOY [facility] [id number] [facility] 2022-05-29 08:00:00 2022-05-29 08:00:00 Outpatient KASSANDRA MCKINLEY [facility] [id number] [facility] 2022-05-15 09:20:00 2022-05-15 09:20:00 Outpatient BENNETT MOORE [facility] [id number] [facility] 2022-05-11 09:30:00 2022-05-11 09:30:00 Outpatient KASSANDRA MCKINLEY [facility] [id number] [facility] 2022-05-05 12:26:00 2022-05-05 16:11:00 Emergency X KARON NORTON [facility] ERT [id number] [facility] 2022-05-05 12:26:00 2022-05-05 16:11:[address] [facility] 1.840.114 350.1.13.10 4.2.7.2.686 [id number] [facility] 2022-05-01 00:00:00 2022-05-01 00:00:00 Outpatient R PRASANNA VARGAS VIEN [facility] [id number] [facility] 2022-04-26 08:30:00 2022-04-26 09:59:00 Emergency X OC BRIDGES [facility] ERT [id number] [facility] 2022-04-26 08:30:00 2022-04-26 09:59:[address] [facility] 1.84.114 350.1.13.10 4.2.7.2.686 [id number] [facility] 2022-04-25 18:23:00 2022-04-25 21:55:00 Emergency X KENNEDY HUTCHINS [facility] ERT [id number] [facility] 2022-04-25 18:23:00 2022-04-25 21:55:[address] [facility] 1.840.114 350.1.13.10 4.2.7.2.686 [id number] [facility] 2022-04-19 10:00:00 2022-04-19 10:00:00 Outpatient JEREMY LABOY [facility] [id number] [facility] 2022-04-12 00:00:00 2022-04-12 00:00:00 Telephone Kassandra Pugh [facility]KARLOSKassandra [facility] 1.2.840.114 350.1.13.10 4.2.7.2.686 [id number] [id number] [facility] 2022-04-11 00:00:00 2022-04-11 00:00:00 Telephone [facility] MED[facility] OFF[facility] 1.0.114 350.1.13.10 4.2.7.2.686 [id number] [id number] [facility] 2022-04-10 00:00:00 2022-04-10 00:00:00 Telephone Kassandra Pugh [facility] 1.0.114 350.1.13.10 4.2.7.2.686 [id number] [id number] [facility] 2022-04-09 09:30:00 2022-04-09 09:30:00 Office Visit Lonny Pughssica [facility] 1.840.114 350.1.13.10 4.2.7.2.686 [id number] [facility] 2022-04-09 09:30:00 2022-04-09 09:21:44 Outpatient R [facility]Y [facility] [id number] [facility] 2022-04-07 13:41:00 2022-04-07 17:49:00 Emergency X OLAMIDE GARVIN [facility] ERT [id number] [facility] 2022-04-07 13:41:00 2022-04-07 17:49:00 Emergency Olamide Garvin G [facility] 1..114 350.1.13.10 4.2.7.2.686 [id number] [id number] [facility] 2022-04-07 00:00:00 2022-04-07 00:00:00 Patient Secure Msg Doctor Unassigned, Dul[facility] 1.0.114 350.1.13.10 4.2.7.2.686 [id number] [facility] 2022-04-04 00:00:00 2022-04-04 00:00:00 Telephone LexyLonnyKassandra [facility] MEDICAL OFFICE BUILDING 1.2.840.114 350.1.13.10 4.2.7.2.686 [id number] [id number] [facility] 2022-04-02 10:30:00 2022-04-02 10:30:00 Outpatient LONNY MCKINLEYSSICA [facility] [id number] [facility] 2022-03-28 00:00:00 2022-03-28 00:00:00 Patient Secure Msg Doctor Unassigned, Dulac [facility] 1..840.114 350.1.13.10 4.2.7.2.686 [id number] [facility] 2022-03-24 07:35:00 2022-03-24 13:11:00 Emergency X KELLIE PIPER [facility] ERT [id number] [facility] 2022-03-24 07:35:00 2022-03-24 13:11:[address] [facility] 1..840.114 350.1.13.10 4.2.7.2.686 [id number] [facility] 2022-03-23 10:30:00 2022-03-23 10:30:00 Outpatient KASSANDRA MCKINLEY [facility] [id number] [facility] 2022-03-23 00:00:00 2022-03-23 00:00:00 Telephone Darrion Armstrong [facility] 1.2.840.114 350.1.13.10 4.2.7.2.686 [id number] [facility] 2022-03-22 00:00:00 2022-03-22 00:00:00 Telephone Patti, [facility] 1..840.114 350.1.13.10 4.2.7.2.686 [id number] [facility] 2022-03-22 00:00:00 2022-03-22 00:00:00 Refill Darrion Armstrong [facility] TALYA?[facility] 1..840.114 350.1.13.10 4.2.7.2.686 [id number] 092 [id number] [facility] 2022-03-21 00:00:00 2022-03-21 00:00:00 Darrion Hernandez [facility] TALYA?[facility] 1..840.114 350.1.13.10 4.2.7.2.686 [id number] [id number] [facility] 2022-03-15 14:00:00 2022-03-15 14:36:19 [facility] [id number] [facility] 2022-03-15 14:00:00 2022-03-15 14:36:19 [facility] 1..840.114 350.1.13.10 4.2.7.2.686 [id number] [facility] 2022-03-15 08:40:00 2022-03-15 10:47:00 Emergency X LYDIA COLMENARES [facility] ERT [id number] [facility] 2022-03-15 08:40:00 2022-03-15 10:47:[address] [facility] 1.2840.114 350.1.13.10 4.2.7.2.686 [id number] [facility] 2022-03-14 10:30:00 2022-03-14 10:30:00 Outpatient R PRASANNA VARGAS [facility] [id number] [facility] 2022-03-11 09:22:00 2022-03-11 12:15:00 Emergency X ANGELICA VIVEROS [facility] ERT [id number] [facility] 2022-03-11 09:22:00 2022-03-11 12:15:[address] [facility] 1.2.840.114 350.1.13.10 4.2.7.2.686 [id number] [facility] 2022-03-06 08:30:00 2022-03-06 08:30:00 [facility] [id number] [facility] 2022-03-02 00:00:00 2022-03-02 00:00:00 Telephone Darrion Armstrong [facility] MED[facility] OFF[facility] BUILD[facility] 1..840.114 350.1.13.10 4.2.7.2.686 [id number] 092 [id number] [facility] 2022-02-28 00:00:00 2022-02-28 00:00:00 Patient Secure Msg Doctor Unassigned, Dulac [facility] MED[facility] OFF[facility] BUILD[facility] 1..840.114 350.1.13.10 4.2.7.2.686 [id number] [id number] [facility] 2022-02-27 09:30:00 2022-02-27 09:49:42 Outpatient R LEXY KASSANDRA [facility] [id number] [facility] 2022-02-27 09:30:00 2022-02-27 09:49:42 [facility] MED[facility] OFF[facility] BUILD[facility] 1..840.114 350.1.13.10 4.2.7.2.686 [id number] [id number] [facility] 2022-02-27 08:00:00 2022-02-27 09:12:17 Office Visit Ca Martinez [facility] 1.2840.114 350.1.13.10 4.2.7.2.686 [id number] [facility] 2022-02-26 11:30:00 2022-02-26 11:30:00 Outpatient KASSANDRA MCKINLEY [facility] [id number] [facility] 2022-02-21 01:20:00 2022-02-21 03:44:00 Emergency X MAGGIE HAMILTON [facility] ERT [id number] [facility] 2022-02-21 01:20:00 2022-02-21 03:44:[address] [facility] 1.2840.114 350.1.13.10 4.2.7.2.686 [id number] [facility] 2022-02-19 00:00:00 2022-02-19 00:00:00 Patient Secure Msg Kendal Zamudio [facility] MEDICAL OFFICE BUILDING 1.2840.114 350.1.13.10 4.2.7.2.686 [id number] [facility] 2022-02-19 00:00:00 2022-02-19 00:00:00 Patient Secure Msg Kendal Zamudio [facility] 1.2840.114 350.1.13.10 4.2.7.2.686 [id number] 044 [id number] [facility] 2022-02-19 00:00:00 2022-02-19 00:00:00 Patient Secure Msg Santiago Valencia [facility] [place] 1.2.840.114 350.1.13.10 4.2.7.2.686 [id number] [facility] 2022-02-19 00:00:00 2022-02-19 00:00:00 Patient Secure Ross Wong [facility] WELDING EQUIPMENT SALES REPRESENTATIVE [facility] MATERNAL & CHILD HEALTH [facility] 1..840.114 350.1.13.10 4.2.7.2.686 [id number] [facility] 2022 11:58:00 2022 15:13:00 Emergency X MAGGIE HAMILTON [facility] ERT [id number] [facility] 2022 11:58:00 2022 15:13:[address] [facility] 1.840.114 350.1.13.10 4.2.7.2.686 [id number] [facility] 2022-02-09 09:00:00 2022-02-09 09:00:00 Outpatient CRICKET FRYE [facility] [id number] [facility] 2022-02-06 10:00:00 2022-02-06 10:00:00 Outpatient CA ARAUZ [facility] [id number] [facility] 2022-02-05 09:45:00 2022-02-05 10:05:00 Nurse Visit Nurse, Filippo [facility] 1..840.114 350.1.13.10 4.2.7.2.686 [id number] [facility] 2022-02-05 09:20:00 2022-02-05 09:20:00 Outpatient FLACO KEE [facility] [id number] [facility] 2022-01-26 00:00:00 2022-01-26 00:00:00 Case Management Prasanna Vargas [facility] PROFESSIO NAL BUILDING 1..840.114 350.1.13.10 4.2.7.2.686 [id number] [facility] 2022-01-22 11:00:00 2022-01-22 11:00:00 Outpatient CA ARAUZ [facility] [id number] [facility] 2022-01-19 00:00:00 2022-01-19 00:00:00 Patient Secure Msg Doctor Unassigned, Dulac [facility] 1.84.114 350.1.13.10 4.2.7.2.686 [id number] [facility] 2022-01-18 05:17:00 2022-01-18 10:25:00 Emergency ROSENDO WALTON [facility] ERT [id number] [facility] 2022-01-18 05:17:00 2022-01-18 10:25:00 Emergency Juan Kennedy [facility] 1.0.114 350.1.13.10 4.2.7.2.686 [id number] [facility] 2022-01-15 08:34:00 2022-01-15 10:49:00 Emergency MAURA DALE [facility] ERT [id number] [facility] 2022-01-15 08:34:00 2022-01-15 10:49:00 Emergency Larry Perez Robert Lee [facility] 1.840.114 350.1.13.10 4.2.7.2.686 [id number] [facility] 2022-01-08 18:04:00 2022-01-08 20:09:00 Emergency HUMBERTO WALLACE [facility] ERT [id number] [facility] 2022-01-08 18:04:00 2022-01-08 20:09:[address] [facility] 1.840.114 350.1.13.10 4.2.7.2.686 [id number] [facility] 2021-12-12 13:30:00 2021-12-12 13:40:21 [facility] [id number] [facility] 2021-12-12 13:30:00 2021-12-12 13:40:21 Office Visit Prasanna [facility]argas [facility] ..840.114 350.1.13.10 4.2.7.2.686 [id number] [facility] 2021-12-12 13:30:00 2021-12-12 13:40:21 [facility] [id number] [facility] 2021-12-12 13:30:00 2021-12-12 13:40:21 Outpatient [facility] [id number] [facility] 2021-12-11 16:15:00 2021-12-11 16:15:00 Outpatient R SUZETTESANTIAGO [facility] [id number] [facility] 2021-12-05 14:15:00 2021-12-05 14:15:00 Outpatient R ROMULO OMALLEY [facility] [id number] [facility] 2021-11-28 08:49:00 2021-11-28 11:02:00 Emergency X KARON NORTON [facility] ERT [id number] [facility] 2021-11-28 08:49:00 2021-11-28 11:02:[address] [facility] 05.14.840.114 350.1.13.10 4.2.7.2.686 [id number] [facility] 2021-11-28 00:00:00 2021-11-28 00:00:00 Patient Secure Msg Cricket Taylor [facility] WELDING EQUIPMENT SALES REPRESENTATIVE [facility] 840.114 350.1.13.10 4.2.7.2.686 [id number] [facility] 2021-11-24 18:14:00 2021-11-24 21:04:00 Emergency X Kaycee MÉNDEZ [facility] ERT [id number] [facility] 2021-11-24 18:14:00 2021-11-24 21:04:00 Emergency Kaycee Méndez Sharlene [facility] 1.2840.114 350.1.13.10 4.2.7.2.686 [id number] [id number] [facility] 2021-11-24 00:00:00 2021-11-24 00:00:00 Telephone Cricket Taylor [facility] WELDING EQUIPMENT SALES REPRESENTATIVE [facility] MATERNAL & CHILD HEALTH [facility] 1..114 350.1.13.10 4.2.7.2.686 [id number] [facility] 2021-11-20 00:00:00 2021-11-20 00:00:00 Patient Secure Mslaila ZamudioJillianKendal Scott [facility] 1.84.114 350.1.13.10 4.2.7.2.686 [id number] [id number] [facility] 2021-11-19 00:00:00 2021-11-19 00:00:00 Letter (Out) Leslie Santacruz [facility] 1..114 350.1.13.10 4.2.7.2.686 [id number] [facility] 2021-11-18 10:41:40 2021-11-18 23:59:00 Outpatient R JAMES BOYDTANY [facility] [id number] [facility] 2021-11-18 10:41:40 2021-11-18 23:59:00 Hospital Encounter [facility] MEDICAL OFFICE BUILDING 1..840.114 350.1.13.10 4.2.7.2.686 [id number] [facility] 2021-11-18 10:20:00 2021-11-18 10:53:20 Urgent Care Oliver [facility] TALYA?[facility] MEDICAL OFFICE BUILDING 1.840.114 350.1.13.10 4.2.7.2.686 [id number] [facility] 2021-11-09 10:30:00 2021-11-09 10:30:00 Outpatient DESIREE STONE [facility] [id number] [facility] 2021-10-25 13:20:00 2021-10-25 13:20:00 [facility] MED[facility] OFF[facility] BUILDING 1.840.114 350.1.13.10 4.2.7.2.686 [id number] [facility] 2021-10-25 13:20:00 2021-10-25 12:47:59 Outpatient WILLIE CASE [facility] [id number] [facility] 2021-10-25 00:00:00 2021-10-25 00:00:00 Patient Secure Msg Ca [facility] MEDICAL OFFICE BUILDING 1.840.114 350.1.13.10 4.2.7.2.686 [id number] [id number] [facility] 2021-10-25 00:00:00 2021-10-25 00:00:00 Telephone Ca [facility] MED[facility] OFF[facility] BUILD[facility] 1..840.114 350.1.13.10 4.2.7.2.686 [id number] [facility] 2021-10-25 00:00:00 2021-10-25 00:00:00 Telephone Provider, Filippo Db Urgent [facility] MEDICAL OFFICE BUILDING 1.2.840.114 350.1.13.10 4.2.7.2.686 [id number] [facility] 2021-10-25 00:00:00 2021-10-25 00:00:00 Telephone Nurse, Filippo Db [facility] MED[facility] OFF[facility] BUILDING 1.2.840.114 350.1.13.10 4.2.7.2.686 [id number] [facility] 2021-10-24 10:15:00 2021-10-24 10:15:00 Outpatient ROMULO BROWNING [facility] [id number] [facility] 2021-10-24 10:15:00 2021-10-24 10:15:00 Outpatient ROMULO BROWNING [facility] [id number] [facility] 2021-10-11 09:30:00 2021-10-11 09:30:00 Outpatient ROMULO BROWNING [facility] [id number] [facility] 2021-10-10 13:30:00 2021-10-10 13:30:00 Outpatient PRASANNA LOOMIS [facility] [id number] [facility] 2021-10-10 13:30:00 2021-10-10 13:30:00 Outpatient PRASANNA LOOMIS [facility] [id number] [facility] 2021-10-10 13:30:00 2021-10-10 13:30:00 Outpatient PRASANNA LOOMIS [facility] [id number] [facility] 2021-10-10 13:30:00 2021-10-10 13:30:00 Outpatient PRASANNA LOOMIS [facility] [id number] [facility] 2021-10-10 13:30:00 2021-10-10 13:30:00 Outpatient PRASANNA LOOMIS [facility] [id number] [facility] 2021-10-10 13:30:00 2021-10-10 13:30:00 Outpatient Farzana PRASANNA VARGAS [facility] [id number] [facility] 2021-10-10 13:30:00 2021-10-10 13:30:00 Outpatient Farzana VARGAS PRASANNA [facility] [id number] [facility] 2021-10-05 00:00:00 2021-10-05 00:00:00 Patient Secure g Kendal Zamudio [facility] MEDICAL OFFICE BUILDING 1.2.840.114 350.1.13.10 4.2.7.2.686 [id number] [facility] 2021-10-05 00:00:00 2021-10-05 00:00:00 Patient Secure g Kendal Zamudio [facility] MEDICAL OFFICE BUILDING 1.2.840.114 350.1.13.10 4.2.7.2.686 [id number] [facility] 2021-10-04 00:00:00 2021-10-04 00:00:00 Pre Visit Outreach Melia Rodriguez [place] 1.2.840.114 350.1.13.10 4.2.7.2.686 [id number] [facility] 2021-09-28 13:30:00 2021-09-28 13:45:00 Office Visit Desiree Mohr [facility] 1.2.840.114 350.1.13.10 4.2.7.2.686 [id number] [facility] 2021-09-28 13:30:00 2021-09-28 13:30:00 Outpatient DESIREE STONE [facility] [id number] [facility] 2021-09-28 13:30:00 2021-09-28 13:30:00 Outpatient R APURVAFIFI JonesINE [facility] [id number] [facility] 2021-09-28 00:00:00 2021-09-28 00:00:00 Patient Secure g Desiree Mohr [facility] 1..840.114 350.1.13.10 4.2.7.2.686 [id number] [facility] 2021-09-27 14:00:00 2021-09-27 14:00:00 Outpatient TETO BRANTLEY [facility] [id number] [facility] 2021-09-27 09:30:00 2021-09-27 09:30:00 Outpatient DANIA RICARDO [facility] [id number] [facility] 2021-09-27 09:30:00 2021-09-27 09:30:00 Outpatient R DANIA PENNINGTON [facility] [id number] [facility] 2021-09-27 09:30:00 2021-09-27 09:30:00 Outpatient R DANIA PENNINGTON [facility] [id number] [facility] 2021-09-26 10:45:00 2021-09-26 10:45:00 Outpatient R CRICKET TAYLOR [facility] [id number] [facility] 2021-09-26 10:45:00 2021-09-26 10:45:00 Outpatient R CRICKET TAYLOR [facility] [id number] [facility] 2021-09-26 00:00:00 2021-09-26 00:00:00 Patient Secure g VíctorRichelle cannonie [facility] 1..840.114 350.1.13.10 4.2.7.2.686 [id number] [facility] 2021-09-26 00:00:00 2021-09-26 00:00:00 Patient Secure Msg Víctorkassandra Ca [facility] 1.84.114 350.1.13.10 4.2.7.2.686 [id number] [facility] 2021-09-25 10:20:00 2021-09-25 11:10:42 Urgent Care Flaco Boyd Amanda [facility] 1.84.114 350.1.13.10 4.2.7.2.686 [id number] [facility] 2021-09-25 10:20:00 2021-09-25 11:10:42 [facility] [id number] [facility] 2021-09-25 10:20:00 2021-09-25 10:20:00 Outpatient R OLIVERFLACO [facility] [id number] [facility] 2021-09-25 10:00:00 2021-09-25 10:00:00 Outpatient R PRASANNA VARGAS [facility] [id number] [facility] 2021-09-25 00:00:00 2021-09-25 00:00:00 Telephone Flaco Boyd [facility] 1.84.114 350.1.13.10 4.2.7.2.686 [id number] [facility] 2021-09-25 00:00:00 2021-09-25 00:00:00 Patient Secure Msg Vargas Prasanna [facility] PROFESSIO NAL BUILDING 1.84.114 350.1.13.10 4.2.7.2.686 [id number] [facility] 2021-09-25 00:00:00 2021-09-25 00:00:00 Telephone Cricket Taylor [facility] WELDING EQUIPMENT SALES REPRESENTATIVE [facility] 1.2.840.114 350.1.13.10 4.2.7.2.686 [id number] [facility] 2021-09-25 00:00:00 2021-09-25 00:00:00 Telephone Desiree Mohr Kassandra [facility] [place] 1.2.840.114 350.1.13.10 4.2.7.2.686 [id number] [facility] 2021-09-15 00:00:00 2021-09-15 00:00:00 Patient Secure Msg Kendal Zamudio [facility] MEDICAL OFFICE BUILDING 1.2840.114 350.1.13.10 4.2.7.2.686 [id number] [facility] 2021-09-15 00:00:00 2021-09-15 00:00:00 Patient Secure Msg Kendal Zamudio [facility] 1.2840.114 350.1.13.10 4.2.7.2.686 [id number] [facility] 2021-09-15 00:00:00 2021-09-15 00:00:00 Patient Secure Msg Kendal Zamudio [facility] 1.2840.114 350.1.13.10 4.2.7.2.686 [id number] [facility] 2021-09-14 00:00:00 2021-09-14 00:00:00 Patient Secure Msg Víctorkassandra Ca [facility] 1.2840.114 350.1.13.10 4.2.7.2.686 [id number] [facility] 2021-09-14 00:00:00 2021-09-14 00:00:00 Patient Secure Msg Doctor Unassigned, [place] [facility] 1.840.114 350.1.13.10 4.2.7.2.686 [id number] [facility] 2021-09-12 10:30:00 2021-09-12 10:30:00 Outpatient DESIREE STONE [facility] [id number] [facility] 2021-09-12 10:30:00 2021-09-12 10:30:00 Outpatient DESIREE STONE [facility] [id number] [facility] 2021-09-12 00:00:00 2021-09-12 00:00:00 Patient Secure Msg Taj Dsouza [facility] 1.84.114 350.1.13.10 4.2.7.2.686 [id number] [facility] 2021-09-12 00:00:00 2021-09-12 00:00:00 Orders Only Doctor Unassigned, [place] 1.84114 350.1.13.10 4.2.7.2.686 [id number] [facility] 2021-09-12 00:00:00 2021-09-12 00:00:00 Patient Secure Msg [facility] 1.840.114 350.1.13.10 4.2.7.2.686 [id number] [facility] 2021-09-05 00:00:00 2021-09-05 00:00:00 Patient Secure Msg Ca Martinez [facility] 1.84.114 350.1.13.10 4.2.7.2.686 [id number] [facility] 2021-09-05 00:00:00 2021-09-05 00:00:00 Patient Secure Msg Doctor Unassigned, [place] [facility] 1.2840.114 350.1.13.10 4.2.7.2.686 [id number] [facility] 2021-09-05 00:00:00 2021-09-05 00:00:00 Patient Secure Msg Doctor Unassigned, [place] [facility] 1.2840.114 350.1.13.10 4.2.7.2.686 [id number] [facility] 2021-09-04 00:00:00 2021-09-04 00:00:00 Patient Secure Msg Juan Ca [facility] 1.840.114 350.1.13.10 4.2.7.2.686 [id number] [facility] 2021-08-28 00:00:00 2021-08-28 00:00:00 Patient Secure Msg Harsh Charles [facility] 1.114 350.1.13.10 4.2.7.2.686 [id number] [facility] 2021-08-25 00:00:00 2021-08-25 00:00:00 Telephone Dania Pennington [facility] 1.114 350.1.13.10 4.2.7.2.686 [id number] [facility] 2021-08-25 00:00:00 2021-08-25 00:00:00 Patient Secure Msg Víctorkassandra Ca [facility] MED[facility] OFF[facility] BUILDING 1.2840.114 350.1.13.10 4.2.7.2.686 [id number] 044 [id number] [facility] 2021-08-24 00:00:00 2021-08-24 00:00:00 Telephone Ca [facility] 1.2.840.114 350.1.13.10 4.2.7.2.686 [id number] 044 [id number] [facility] 2021-08-24 00:00:00 2021-08-24 00:00:00 Patient Secure Msg Ca Martinez [facility] 1.2.840.114 350.1.13.10 4.2.7.2.686 [id number] 044 [id number] [facility] 2021-08-23 00:00:00 2021-08-23 00:00:00 Patient Secure Msg Ca Martinez [facility]LINO [facility] MEDICAL OFFICE BUILDING 1.2.840.114 350.1.13.10 4.2.7.2.686 [id number] 044 [id number] [facility] 2021-08-23 00:00:00 2021-08-23 00:00:00 Telephone Ca [facility]LINO [facility] MEDICAL OFFICE BUILDING 1.2.840.114 350.1.13.10 4.2.7.2.686 [id number] 044 [id number] [facility] 2021-08-22 00:00:00 2021-08-22 00:00:00 Telephone Ca [facility]O [facility] MEDICAL OFFICE BUILDING 1.2.840.114 350.1.13.10 4.2.7.2.686 [id number] 044 [id number] [facility] 2021-08-22 00:00:00 2021-08-22 00:00:00 Patient Secure Msg Hallie Wilkinson [facility] MEDICAL OFFICE BUILDING 1.2.840.114 350.1.13.10 4.2.7.2.686 [id number] 044 [id number] [facility] 2021-08-18 00:00:00 2021-08-18 00:00:00 Telephone Ca [facility] MEDICAL OFFICE BUILDING 1.2840.114 350.1.13.10 4.2.7.2.686 [id number] 044 [id number] [facility] 2021-08-17 09:00:00 2021-08-17 09:00:00 Outpatient DESIREE STONE [facility] [id number] [facility] 2021-08-17 09:00:00 2021-08-17 09:00:00 Outpatient DESIREE STONE [facility] [id number] [facility] 2021-08-17 00:00:00 2021-08-17 00:00:00 Patient Secure Msg Prasanna Vargas [facility] NAL BUILDING 1.2840.114 350.1.13.10 4.2.7.2.686 [id number] [facility] 2021-08-17 00:00:00 2021-08-17 00:00:00 Patient Secure Msg Ca Martinez [facility] MED[facility] OFF[facility] BUILDING 1.2840.114 350.1.13.10 4.2.7.2.686 [id number] 044 [id number] [facility] 2021-08-17 00:00:00 2021-08-17 00:00:00 Patient Secure Msg Ca Martinez [facility] OFF[facility] 1.2840.114 350.1.13.10 4.2.7.2.686 [id number] 044 [id number] [facility] 2021-08-16 00:00:00 2021-08-16 00:00:00 Patient Secure Msg Ca Martinez [facility] MED[facility] OFF[facility] BU[facility] 1.2840.114 350.1.13.10 4.2.7.2.686 [id number] 044 [id number] [facility] 2021-08-16 00:00:00 2021-08-16 00:00:00 Patient Secure Msg Doctor Unassigned, Dulac [facility] MED[facility] OFF[facility] BUILDING 1.2.840.114 350.1.13.10 4.2.7.2.686 [id number] 044 [id number] [facility] 2021-08-16 00:00:00 2021-08-16 00:00:00 Patient Secure Msg Ca Martinez [facility] MED[facility] OFF[facility] BUILDING 1.2.840.114 350.1.13.10 4.2.7.2.686 [id number] 044 [id number] [facility] 2021-08-16 00:00:00 2021-08-16 00:00:00 Patient Secure Msg Ca Martinez [facility] MED[facility] OFF[facility] BUILDING 1.2.840.114 350.1.13.10 4.2.7.2.686 [id number] 044 [id number] [facility] 2021-08-15 15:30:00 2021-08-15 16:16:42 Office Visit Adán Kim [facility] MEDICAL OFFICE BUILDING 1.2.840.114 350.1.13.10 4.2.7.2.686 [id number] [facility] 2021-08-15 15:30:00 2021-08-15 16:16:42 Outpatient ADÁN DIEGO [facility] [id number] [facility] 2021-08-15 15:30:00 2021-08-15 15:30:00 Outpatient ADÁN DIEGO [facility] [id number] [facility] 2021-08-15 15:30:00 2021-08-15 15:30:00 Outpatient ADÁN DIEGO [facility] [id number] [facility] 2021-08-15 15:30:00 2021-08-15 15:30:00 Outpatient ADÁN DIEGO [facility] [id number] [facility] 2021-08-15 09:27:00 2021-08-15 12:26:00 Emergency MAURA DALE [facility] ERT [id number] [facility] 2021-08-15 09:27:00 2021-08-15 12:26:[address] [facility] 1..840.114 350.1.13.10 4.2.7.2.686 [id number] [facility] 2021-08-15 09:27:00 2021-08-15 12:26:00 Emergency MAURA DALE [facility] ERT [id number] [facility] 2021-08-15 00:00:00 2021-08-15 00:00:00 Patient Secure Msg Doctor Unassigned, [facility] 1.2.840.114 350.1.13.10 4.2.7.2.686 [id number] [facility] 2021-08-14 13:25:00 2021-08-14 23:59:00 Outpatient CA ARAUZ [facility] [id number] [facility] 2021-08-14 13:25:00 2021-08-14 23:59:00 Outpatient CA ARAUZ [facility] [id number] [facility] 2021-08-14 13:25:00 2021-08-14 13:25:00 Outpatient CA ARAUZ [facility] [id number] [facility] 2021-08-14 12:19:07 2021-08-14 13:24:00 Outpatient CA ARAUZ [facility] [id number] [facility] 2021-08-14 12:19:07 2021-08-14 13:24:00 Outpatient CA ARAUZ [facility] [id number] [facility] 2021-08-14 12:30:00 2021-08-14 13:01:24 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?LINO [facility] MEDICAL OFFICE BUILDING 1.84.114 350.1.13.10 4.2.7.2.686 [id number] [facility] 2021-08-14 11:30:00 2021-08-14 12:31:12 Office Visit Ca Martinez [facility]O [facility] MEDICAL OFFICE BUILDING 1.84.114 350.1.13.10 4.2.7.2.686 [id number] 044 [id number] [facility] 2021-08-14 11:30:00 2021-08-14 12:31:12 Outpatient Farzana MARTINEZ CA [facility] [id number] [facility] 2021-08-14 00:00:00 2021-08-14 00:00:00 Patient Secure g Juan Replaced by [facility] 1.84.114 350.1.13.10 4.2.7.2.686 [id number] 044 [id number] [facility] 2021-08-14 00:00:00 2021-08-14 00:00:00 Patient Secure g [facility] 1.284.114 350.1.13.10 4.2.7.2.686 [id number] 044 [id number] [facility] 2021-08-09 14:45:00 2021-08-09 14:45:00 Outpatient R KIMADÁN [facility] [id number] [facility] 2021-08-09 00:00:00 2021-08-09 00:00:00 Telephone Ca Martinez [facility] 1..840.114 350.1.13.10 4.2.7.2.686 [id number] [id number] [facility] 2021-08-08 11:30:00 2021-08-08 23:59:00 Outpatient R CA MARTINEZ [facility] [id number] [facility] 2021-08-08 11:30:00 2021-08-08 23:59:00 Hospital Encounter [facility] MED[facility] OFF[facility] BUILDING 1..840.114 350.1.13.10 4.2.7.2.686 [id number] [facility] 2021-08-08 11:15:00 2021-08-08 11:15:00 Outpatient R CA MARTINEZ [facility] [id number] [facility] 2021-08-08 11:00:00 2021-08-08 11:00:00 Outpatient R CA MARTINEZ [facility] [id number] [facility] 2021-08-08 00:00:00 2021-08-08 00:00:00 Patient Secure Msg Doctor Unassigned, [place] [facility] 1..840.114 350.1.13.10 4.2.7.2.686 [id number] [facility] 2021-08-07 09:30:00 2021-08-07 10:23:21 Office Visit Ca Martinez [facility] MEDICAL OFFICE BUILDING 1..840.114 350.1.13.10 4.2.7.2.686 [id number] [id number] [facility] 2021-08-07 09:30:00 2021-08-07 10:23:21 Outpatient R CA MARTINEZ [facility] [id number] [facility] 2021-08-07 09:30:00 2021-08-07 09:30:00 Outpatient R CA MARTINEZ [facility] [id number] [facility] 2021-08-07 00:00:00 2021-08-07 00:00:00 Patient Secure Msg Ca Martinez [facility] MEDICAL OFFICE BUILDING 1..840.114 350.1.13.10 4.2.7.2.686 [id number] [id number] [facility] 2021-08-07 00:00:00 2021-08-07 00:00:00 Patient Secure Msg Ca Martinez [facility] MEDICAL OFFICE BUILDING 1..840.114 350.1.13.10 4.2.7.2.686 [id number] 044 [id number] [facility] 2021-08-07 00:00:00 2021-08-07 00:00:00 Patient Secure Msg Desiree Mohr [facility] 1..840.114 350.1.13.10 4.2.7.2.686 [id number] [facility] 2021-08-04 10:00:00 2021-08-04 10:00:00 Outpatient R PETRA RENO [facility] [id number] [facility] 2021-08-04 00:00:00 2021-08-04 00:00:00 Patient Secure Msg [facility] MEDICAL OFFICE BUILDING 1..840.114 350.1.13.10 4.2.7.2.686 [id number] [id number] [facility] 2021-08-03 11:00:00 2021-08-03 12:48:43 Office Visit Juan Diaz [employer] [facility] 1..840.114 350.1.13.10 4.2.7.2.686 [id number] [facility] 2021-08-03 11:00:00 2021-08-03 12:48:43 Outpatient JUAN YANG [facility] [id number] [facility] 2021-08-03 11:00:00 2021-08-03 11:00:00 Outpatient Farzana DIAZ [facility] [id number] [facility] 2021-08-03 00:00:00 2021-08-03 00:00:00 Patient Secure Desiree Mohr [facility] 1..840.114 350.1.13.10 4.2.7.2.686 [id number] [facility] 2021-08-02 00:00:00 2021-08-02 00:00:00 Telephone [facility] BUILD[facility] 1.2.840.114 350.1.13.10 4.2.7.2.686 [id number] [id number] [facility] 2021-07-21 08:00:00 2021-07-21 08:52:53 Outpatient DARRION QUIROZ HOWARD [facility] [id number] [facility] 2021-07-17 11:30:00 2021-07-17 11:30:00 Outpatient CA ARAUZ [facility] [id number] [facility] 2021-07-17 00:00:00 2021-07-17 00:00:00 Patient Secure Juan [facility] MED[facility] OFF[facility] BUILDING 1.2.840.114 350.1.13.10 4.2.7.2.686 [id number] [id number] [facility] 2021-06-19 00:00:00 2021-06-19 00:00:00 Telephone Richelle Martinezie [facility] 1..840.114 350.1.13.10 4.2.7.2.686 [id number] [facility] 2021-06-09 00:00:00 2021-06-09 00:00:[address] [facility] 1..840.114 350.1.13.10 4.2.7.2.686 [id number] [facility] 2021-06-06 11:15:00 2021-06-06 11:15:00 Outpatient R TETO CARNES [facility] [id number] [facility] 2021-06-06 11:15:00 2021-06-06 11:15:00 [facility] [id number] [facility] 2021-06-02 15:45:00 2021-06-02 15:45:00 Outpatient R CLAUDETTE EVANS [facility] [id number] [facility] 2021-05-31 10:00:00 2021-05-31 10:46:31 Outpatient R JUANRICHELLEIE [facility] [id number] [facility] 2021-05-31 10:00:00 2021-05-31 10:46:31 Office Visit JuanCa [facility] 1..840.114 350.1.13.10 4.2.7.2.686 [id number] [facility] 2021-05-31 10:00:00 2021-05-31 10:46:31 Outpatient R JUAN AC [facility] [id number] [facility] 2021-05-31 00:00:00 2021-05-31 00:00:00 Orders Only Doctor Unassigned, [place] [facility] 1..840.114 350.1.13.10 4.2.7.2.686 [id number] [facility] 2021-05-26 00:00:00 2021-05-26 00:00:00 Telephone Skylar Groves [facility] MED[facility] OFF[facility] BUILDING 1.2.840.114 350.1.13.10 4.2.7.2.686 [id number] [id number] [facility] 2021-05-26 00:00:00 2021-05-26 00:00:00 Patient Secure Msg [facility] 1.2.840.114 350.1.13.10 4.2.7.2.686 [id number] [facility] 2021-05-25 14:00:00 2021-05-25 14:30:00 Telemedici ne Visit Skylar Groves [facility] MEDICAL OFFICE BUILDING 1.2.840.114 350.1.13.10 4.2.7.2.686 [id number] [id number] [facility] 2021-05-25 14:00:00 2021-05-25 14:00:00 Outpatient R MARIA D GROVESLIE [facility] [id number] [facility] 2021-05-25 14:00:00 2021-05-25 14:00:00 Outpatient R BRODIESKYLAR [facility] [id number] [facility] 2021-05-25 00:00:00 2021-05-25 00:00:00 Patient Secure Msg Skylar Groves [facility] MEDICAL OFFICE BUILDING 1.2.840.114 350.1.13.10 4.2.7.2.686 [id number] [id number] [facility] 2021-05-25 00:00:00 2021-05-25 00:00:00 Patient Secure Msg Skylar Groves [facility] MEDICAL OFFICE BUILDING 1.2.840.114 350.1.13.10 4.2.7.2.686 [id number] [id number] [facility] 2021-05-24 00:00:00 2021-05-24 00:00:00 Telephone Delroy Reenazohra SergePilar [facility] BUILDING 1.2.840.114 350.1.13.10 4.2.7.2.686 [id number] 059 [id number] [facility] 2021-05-24 00:00:00 2021-05-24 00:00:00 Patient Secure Msg Rad SerraHPilar [facility] BUILDING 1.2.840.114 350.1.13.10 4.2.7.2.686 [id number] 059 [id number] [facility] 2021-05-24 00:00:00 2021-05-24 00:00:00 Patient Secure Msg Claudette Evans [facility] MED[facility] OFFICE BUILDING 1..840.114 350.1.13.10 4.2.7.2.686 [id number] 044 [id number] [facility] 2021-05-23 10:00:00 2021-05-23 10:00:00 Outpatient R [facility] [id number] [facility] 2021-05-23 10:00:00 2021-05-23 10:00:00 Outpatient R [facility] [id number] [facility] 2021-05-23 00:00:00 2021-05-23 00:00:00 Patient Secure Msg Claudette Evans [facility] MEDICAL OFFICE BUILDING 1.2.840.114 350.1.13.10 4.2.7.2.686 [id number] [facility] 2021-05-16 09:00:2021-05-16 09:00:00 Outpatient TETO BRANTLEY [facility] [id number] [facility] 2021-05-12 00:00:00 2021-05-12 00:00:00 Orders Only Doctor Unassigned, [place] [facility] 1.2.840.114 350.1.13.10 4.2.7.2.686 [id number] [facility] 2021-05-10 13:00:00 2021-05-10 13:00:00 [id number] 2021-05-10 13:00:00 2021-05-10 13:00:00 Out[facility] [id number] [facility] 2021-05-09 00:00:00 2021-05-09 00:00:[address] [facility] 1.2.840.114 350.1.13.10 4.2.7.2.686 [id number] [facility] 2021-05-09 00:00:00 2021-05-09 00:00:00 Patient Secure aRd Wells [facility] 1.2.840.114 350.1.13.10 4.2.7.2.686 [id number] [facility] 2021-05-08 16:00:00 2021-05-08 16:00:00 Outpatient JE CRABTREE [facility] [id number] [facility] 2021-05-08 16:00:00 2021-05-08 16:00:00 Outpatient JAN CRABTREETHIA [facility] [id number] [facility] 2021-05-08 00:00:00 2021-05-08 00:00:00 Patient Secure Msg Serra Sendzohra [facility] 1.2.840.114 350.1.13.10 4.2.7.2.686 [id number] [id number] [facility] 2021-05-08 00:00:00 2021-05-08 00:00:00 Patient Secure Msg Reena Serrazohra Kaycee.Pilar [facility] NAL BUILD[facility] 1.2840.114 350.1.13.10 4.2.7.2.686 [id number] 059 [id number] [facility] 2021-05-04 00:00:00 2021-05-04 00:00:00 Patient Secure Msg Rad Serra.[facility] BUILDING 1.284.114 350.1.13.10 4.2.7.2.686 [id number] [facility] 2021-05-04 00:00:00 2021-05-04 00:00:00 Patient Secure Msg Radha Reji [facility] BUILDING 1.84.114 350.1.13.10 4.2.7.2.686 [id number] [facility] 2021-05-03 11:15:36 2021-05-03 23:59:00 Outpatient R REJI GARCIA [facility] [id number] [facility] 2021-05-03 11:15:36 2021-05-03 23:59:00 Hospital Encounter Radha Reji [facility] BUILDING 1.2840.114 350.1.13.10 4.2.7.2.686 [id number] [facility] 2021-05-03 00:00:00 2021-05-03 00:00:00 Telephone Claud[facility] 1.2.840.114 350.1.13.10 4.2.7.2.686 [id number] 044 [id number] [facility] 2021-05-02 00:00:00 2021-05-02 00:00:00 Telephone aRd SerraHPilar [facility] BUILDING 1.2.840.114 350.1.13.10 4.2.7.2.686 [id number] 059 [id number] [facility] 2021-05-02 00:00:00 2021-05-02 00:00:00 Patient Secure Msg Cristina, Carmelinadiful A [facility] MED[facility] OFF[facility] BUILDING 1.2.840.114 350.1.13.10 4.2.7.2.686 [id number] [id number] [facility] 2021-05-02 00:00:00 2021-05-02 00:00:00 [place] A [facility] MED[facility] OFF[facility] BUILDING 1..840.114 350.1.13.10 4.2.7.2.686 [id number] 044 [id number] [facility] 2021-05-02 00:00:00 2021-05-02 00:00:00 Patient Secure Msg SerraRad.H. [facility] BUILDING 1..840.114 350.1.13.10 4.2.7.2.686 [id number] [id number] [facility] 2021-05-02 00:00:00 2021-05-02 00:00:00 Patient Secure Msg [place], Carmelinadiful A [facility] MED[facility] OFF[facility] BUILDING 1.2.840.114 350.1.13.10 4.2.7.2.686 [id number] 044 [id number] [facility] 2021-04-28 00:00:00 2021-04-28 00:00:00 Patient Secure Msg [place], Carmelinadiful A [facility] MED[facility] OFF[facility] BUILDING 1.840.114 350.1.13.10 4.2.7.2.686 [id number] 044 [id number] [facility] 2021-04-27 14:24:00 2021-04-27 15:49:00 Emergency X ALFONSO MAGGIE [facility] ERT [id number] [facility] 2021-04-27 14:24:00 2021-04-27 15:49:[address] [facility] 1.840.114 350.1.13.10 4.2.7.2.686 [id number] [facility] 2021-04-27 11:15:00 2021-04-27 11:30:00 Laboratory Only Only, Ang Db Test Unknown, Attending Thony Johnson [facility] 1.840.114 350.1.13.10 4.2.7.2.686 [id number] [facility] 2021-04-27 11:15:00 2021-04-27 11:15:00 Outpatient THONY LUIS [facility] [id number] [facility] 2021-04-27 00:00:00 2021-04-27 00:00:00 Orders Only Doctor Unassigned, [place] [facility] 1.840.114 350.1.13.10 4.2.7.2.686 [id number] [facility] 2021-04-20 15:00:00 2021-04-20 15:00:00 Outpatient SCOTT RENEE [facility] [id number] [facility] 2021-04-13 00:00:00 2021-04-13 00:00:00 Patient Secure [place], Claudette A [facility] 1.840.114 350.1.13.10 4.2.7.2.686 [id number] [facility] 2021-04-12 00:00:00 2021-04-12 00:00:00 Telephone Claudette Evans [facility] 1.2.840.114 350.1.13.10 4.2.7.2.686 [id number] [facility] 2021-03-27 00:00:00 2021-03-27 00:00:[address] [facility] 1..840.114 350.1.13.10 4.2.7.2.686 [id number] [facility] 2021-03-24 00:00:00 2021-03-24 00:00:00 Patient Secure Msg Doctor Unassigned, [place] [facility] 1.840.114 350.1.13.10 4.2.7.2.686 [id number] [facility] 2021-03-23 13:30:00 2021-03-23 13:30:00 Outpatient PINO AGUIAR [facility] [id number] [facility] 2021-03-23 13:30:00 2021-03-23 13:30:00 Outpatient PINO AGUIAR [facility] [id number] [facility] 2021-03-22 09:20:00 2021-03-22 09:20:00 Outpatient R ADITYA MEEKS STRAHIL [facility] [id number] [facility] 2021-03-22 09:20:00 2021-03-22 09:20:00 Outpatient R ADITYA MEEKS STRAHIL [facility] [id number] [facility] 2021-03-20 00:00:00 2021-03-20 00:00:00 Outpatient CLAUDETTE CEDILLO [facility] [id number] [facility] 2021-03-18 00:00:00 2021-03-18 00:00:00 Case Management Claudette Evans [facility] 1..840.114 350.1.13.10 4.2.7.2.686 [id number] [facility] 2021-03-16 11:16:07 2021-03-16 11:31:07 [employer] T[employer] Visit Lab, Ang - Db Claudette Evans [facility] 1..840.114 350.1.13.10 4.2.7.2.686 [id number] [facility] 2021-03-16 11:30:00 2021-03-16 11:30:00 Outpatient R CLAUDETTE EVANS [facility] [id number] [facility] 2021-03-16 11:00:00 2021-03-16 11:14:45 Outpatient R CLAUDETTE EVANS [facility] [id number] [facility] 2021-03-16 10:00:58 2021-03-16 11:14:45 Office Visit Claudette Evans [facility] [facility] 1..840.114 350.1.13.10 4.2.7.2.686 [id number] [id number] [facility] 2021-03-16 00:00:00 2021-03-16 00:00:00 Patient Secure Msg Claudette Evans [facility] MAURICE BABIN?[facility] MED[facility] OFF[facility] BUILDING 1..840.114 350.1.13.10 4.2.7.2.686 [id number] 044 [id number] [facility] 2021-03-02 16:15:00 2021-03-02 16:15:00 Outpatient R CLAUDETTE EVANS [facility] [id number] [facility] 2021-02-28 18:30:00 2021-02-28 18:30:00 Outpatient R MITCHELLWILLIE [facility] [id number] [facility] 2021-02-28 00:00:00 2021-02-28 00:00:00 Telephone Branden Evansful A [facility] Medical Office Building 1.840.114 350.1.13.10 4.2.7.2.686 [id number] [facility] 2021-02-27 09:00:00 2021-02-27 09:00:00 Outpatient AMELIA OBRIEN [facility] [id number] [facility] 2021-02-23 00:00:00 2021-02-23 00:00:00 Telephone Branden Evansful A [facility] Medical Office Building 1.84.114 350.1.13.10 4.2.7.2.686 [id number] [facility] 2021-02-10 18:12:00 2021-02-10 23:39:00 Emergency Kaycee Méndez [facility] 1.114 350.1.13.10 4.2.7.2.686 [id number] [facility] 2021-02-10 00:00:00 2021-02-10 00:00:00 Patient Secure Msg Carmelina Evansdiful [facility] MEDICAL OFFICE BUILDING 1.84.114 350.1.13.10 4.2.7.2.686 [id number] 044 [id number] [facility] 2021-02-10 00:00:00 2021-02-10 00:00:00 Patient Secure Msg Carmelina Evansdiful [facility] T[facility] MEDICAL OFFICE BUILDING 1.284.114 350.1.13.10 4.2.7.2.686 [id number] 044 [id number] [facility] 2021-02-10 00:00:00 2021-02-10 00:00:00 Patient Secure Claudette Hinds [facility] MAURICE BABIN?[facility] MEDICAL OFFICE BUILDING 1.2.840.114 350.1.13.10 4.2.7.2.686 [id number] [facility] 2021-02-10 00:00:00 2021-02-10 00:00:00 Patient Secure Claudette Hinds 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 Babin?[facility] Medical Office Building 1.2.840.114 350.1.13.10 4.2.7.2.686 [id number] [facility] 2021-02-09 12:23:13 2021-02-09 13:47:12 Office Visit Claudette Evans [place] Maurice Babin?[facility] Medical Office Building 1.2.840.114 350.1.13.10 4.2.7.2.686 [id number] [id number] [facility] 2021-02-09 13:00:00 2021-02-09 13:00:00 Outpatient R CLAUDETTE EVANS [facility] [id number] [facility] 2021-02-09 00:00:00 2021-02-09 00:00:00 Patient Secure g Doctor Unassigned, [facility] 1..840.114 350.1.13.10 4.2.7.2.686 [id number] [facility] 2021-02-08 10:20:00 2021-02-08 10:20:00 Outpatient R ANN-MARIEGERARDOADITYA EUGENE STRAKSEz [facility] [id number] [facility] 2021-02-07 00:00:00 2021-02-07 00:00:00 [facility] MEDICAL OFFICE BUILDING 1..840.114 350.1.13.10 4.2.7.2.686 [id number] 044 [id number] [facility] 2021-02-02 10:30:00 2021-02-02 10:30:00 Outpatient R BRODIESKYLAR [facility] [id number] [facility] 2021-02-02 00:00:00 2021-02-02 00:00:00 Telephone Claudette Evans [facility] Medical Office Building 1..840.114 350.1.13.10 4.2.7.2.686 [id number] [facility] 2021-02-01 08:30:00 2021-02-01 08:30:00 Outpatient R BRODIESKYLAR [facility] [id number] [facility] 2021-01-31 18:44:04 2021-01-31 19:41:26 Urgent Care [facility] Medical Office Building 1..840.114 350.1.13.10 4.2.7.2.686 [id number] [facility] 2021-01-31 19:00:00 2021-01-31 19:00:00 Outpatient R FLACO BOYD [facility] [id number] [facility] 2021-01-31 00:00:00 2021-01-31 00:00:00 [place] [facility] 1..840.114 350.1.13.10 4.2.7.2.686 [id number] [id number] [facility] 2021-01-31 00:00:00 2021-01-31 00:00:00 Patient Secure Msg Claudette Evans [facility] MEDICAL OFFICE BUILDING 1..840.114 350.1.13.10 4.2.7.2.686 [id number] 044 [id number] [facility] 2021-01-30 00:00:00 2021-01-30 00:00:00 Telephone Rad Serra [facility] Building 1..840.114 350.1.13.10 4.2.7.2.686 [id number] [facility] 2021-01-30 00:00:00 2021-01-30 00:00:00 Patient Secure Msg Claudette Evans [facility] OFF[facility] ONE 1..840.114 350.1.13.10 4.2.7.2.686 [id number] [facility] 2021-01-26 14:00:00 2021-01-26 14:00:00 Outpatient R RAD SERRA [facility] [id number] [facility] 2021-01-26 00:00:00 2021-01-26 00:00:00 Patient Secure Msg Skylar Groves Kassandra [facility] MEDICAL OFFICE BUILDING 1..840.114 350.1.13.10 4.2.7.2.686 [id number] 044 [id number] [facility] 2021-01-25 15:00:00 2021-01-25 15:00:00 Outpatient R [facility] [id number] [facility] 2021-01-21 00:00:00 2021-01-21 00:00:00 Patient Secure Msg Skylar Groves [facility] MEDICAL OFFICE BUILDING 1.84.114 350.1.13.10 4.2.7.2.686 [id number] 044 [id number] [facility] 2021-01-20 16:51:22 2021-01-20 17:12:41 Telemedici ne Visit Skylar Groves [facility] Medical Office Building 1.840.114 350.1.13.10 4.2.7.2.686 [id number] [id number] [facility] 2021-01-20 16:30:00 2021-01-20 16:30:00 Outpatient R SKYLAR GROVES [facility] [id number] [facility] 2021-01-19 10:15:00 2021-01-19 10:15:00 Outpatient R RICKY KAYLEY [facility] [id number] [facility] 2021-01-14 00:00:00 2021-01-14 00:00:00 Case Management Kassandra Benavides [facility] 1.84.114 350.1.13.10 4.2.7.2.686 [id number] [facility] 2021-01-14 00:00:00 2021-01-14 00:00:00 Patient Secure Msg Doctor Unassigned, [place] 1.84.114 350.1.13.10 4.2.7.2.686 [id number] [facility] 2021-01-12 16:10:00 2021-01-12 19:45:00 Emergency Hany Matthews [facility] 1.2.840.114 350.1.13.10 4.2.7.2.686 [id number] [facility] 2021-01-12 15:20:00 2021-01-12 15:20:00 Outpatient R WILLIE MEDRANO [facility] [id number] [facility] 2021-01-12 14:46:57 2021-01-12 15:06:57 Urgent Care Juan Josekylescott, Thony Medrano, [facility] Medical Office Building 1.2.840.114 350.1.13.10 4.2.7.2.686 [id number] [facility] 2020-12-26 15:30:00 2020-12-26 16:13:32 Outpatient R RAD SERRA [facility] [id number] [facility] 2020-12-26 15:30:00 2020-12-26 16:13:32 Office Visit Rad Serra [facility] 1.2.840.114 350.1.13.10 4.2.7.2.686 [id number] [facility] 2020-12-26 15:00:32 2020-12-26 16:13:32 Office Visit Rad Serra [facility] 1.2.840.114 350.1.13.10 4.2.7.2.686 [id number] [facility] 2020-12-26 15:30:00 2020-12-26 15:30:00 Outpatient R RAD SERRA [facility] [id number] [facility] 2020-11-29 00:00:00 2020-11-29 00:00:00 Patient Secure Msg Rad Serra [facility] N[facility] BUILD[facility] 1.2.840.114 350.1.13.10 4.2.7.2.686 [id number] [facility] 2020-11-22 11:00:00 2020-11-22 11:00:00 Outpatient R DESIREE MOHR [facility] [id number] [facility] 2020-11-10 18:42:46 2020-11-10 19:53:43 Urgent Care Dennis [facility] Office Building One 1.2840.114 350.1.13.10 4.2.7.2.686 [id number] 2020-11-10 19:00:00 2020-11-10 19:00:00 Outpatient R [facility] [id number] [facility] 2020-10-31 18:52:00 2020-10-31 22:15:00 Emergency Kaycee Méndez [facility] 1.2840.114 350.1.13.10 4.2.7.2.686 [id number] 2020-10-31 19:00:00 2020-10-31 19:00:00 Outpatient R BEBA KAUR [facility] [id number] [facility] 2020-10-31 00:00:00 2020-10-31 00:00:00 Orders Only Doctor Unassigned, [place] [facility] 1.2840.114 350.1.13.10 4.2.7.2.686 [id number] 2020-10-20 14:02:00 2020-10-20 17:13:00 Emergency Kaycee Méndez [facility] 1.2840.114 350.1.13.10 4.2.7.2.686 [id number] [id number] 2020-10-18 00:00:00 2020-10-18 00:00:00 Patient Secure Msg Prasanna Vargas [facility] NAL BUILDING 1.2.840.114 350.1.13.10 4.2.7.2.686 [id number] [facility] 2020-10-14 10:00:00 2020-10-14 23:59:00 Hospital Encounter Prasanna Vargas [facility] 1.2.840.114 350.1.13.10 4.2.7.2.686 [id number] 2020-10-14 13:30:00 2020-10-14 13:30:00 Outpatient DESIREE STONE [facility] [id number] [facility] 2020-10-11 00:00:00 2020-10-11 00:00:00 Patient Secure Msg Prasanna Vargas [facility] BUILDING 1.2.840.114 350.1.13.10 4.2.7.2.686 [id number] 134 [id number] [facility] 2020-10-11 00:00:00 2020-10-11 00:00:00 Patient Secure Msg Prasanna Vargas [facility] BUILDING 1.2.840.114 350.1.13.10 4.2.7.2.686 [id number] [facility] 2020-10-09 12:00:00 2020-10-09 15:57:00 Emergency Lydia Kim [facility] 1.2.840.114 350.1.13.10 4.2.7.2.686 [id number] [id number] 2020-10-07 00:00:00 2020-10-07 00:00:00 Patient Secure Msg [facility] 1.2.840.114 350.1.13.10 4.2.7.2.686 [id number] 134 [id number] [facility] 2020-10-07 00:00:00 2020-10-07 00:00:00 Patient Secure Msg Prasanna [facility] 1.2.840.114 350.1.13.10 4.2.7.2.686 [id number] 134 [id number] [facility] 2020-10-07 00:00:00 2020-10-07 00:00:00 Patient Secure Msg Prasanna [facility] 1.2.840.114 350.1.13.10 4.2.7.2.686 [id number] 134 [id number] [facility] 2020-10-07 00:00:00 2020-10-07 00:00:00 Patient Secure Msg Prasanna [facility] 1.2.840.114 350.1.13.10 4.2.7.2.686 [id number] [facility] 2020-10-07 00:00:00 2020-10-07 00:00:00 Patient Secure Msg Prasanna [facility] 1.2.840.114 350.1.13.10 4.2.7.2.686 [id number] 134 [id number] [facility] 2020-10-07 00:00:00 2020-10-07 00:00:00 Patient Secure Msg Prasanna [facility] 1.2.840.114 350.1.13.10 4.2.7.2.686 [id number] 134 [id number] [facility] 2020-10-07 00:00:00 2020-10-07 00:00:00 Patient Secure Msg Prasanna [facility] 1.2.840.114 350.1.13.10 4.2.7.2.686 [id number] 134 [id number] [facility] 2020-10-06 08:53:00 2020-10-06 09:46:44 Office Visit Prasanna Vargas [facility] 1.2.840.114 350.1.13.10 4.2.7.2.686 [id number] 134 [id number] 2020-10-06 09:30:00 2020-10-06 09:30:00 Outpatient R PRASANNA VARGAS [facility] [id number] [facility] 2020-10-04 14:00:00 2020-10-04 14:00:00 Outpatient DESIREE STONE [facility] [id number] [facility] 2020-09-30 10:30:00 2020-09-30 10:30:00 Outpatient DESIREE STONE [facility] [id number] [facility] 2020-09-29 13:45:00 2020-09-29 13:45:00 Outpatient PREET KRISHNA [facility] [id number] [facility] 2020-09-06 15:30:00 2020-09-06 15:30:00 Outpatient R VARGASPRASANNA [facility] [id number] [facility] 2020-09-05 00:00:00 2020-09-05 00:00:00 Patient Secure Msg Prasanna Vargas [facility] 1.2.840.114 350.1.13.10 4.2.7.2.686 [id number] [facility] 2020-09-02 15:40:00 2020-09-02 15:40:00 Outpatient DARRION QUIROZ HOWARD [facility] [id number] [facility] 2020-08-31 10:30:00 2020-08-31 10:30:00 Outpatient RAD MATAMOROS [facility] [id number] [facility] 2020-08-31 00:00:00 2020-08-31 00:00:00 Patient Secure MsPrasanna Lyman [facility] 1.2.840.114 350.1.13.10 4.2.7.2.686 [id number] [facility] 2020-08-18 09:30:00 2020-08-18 09:30:00 Outpatient PRASANNA LOOMIS [facility] [id number] [facility] 2020-08-11 13:30:00 2020-08-11 13:30:00 Outpatient R PRASANAN VARGAS [facility] [id number] [facility] 2020-08-04 14:00:00 2020-08-04 14:00:00 Outpatient R SCOTT GILBERT [facility] [id number] [facility] 2020-07-28 10:30:00 2020-07-28 10:30:00 Outpatient RAD MATAMOROS [facility] [id number] [facility] 2020-06-30 16:15:00 2020-06-30 16:15:00 Outpatient CLAUDETTE CEDILLO [facility] [id number] [facility] 2020-06-17 15:00:00 2020-06-17 15:00:00 Outpatient DARRION QUIROZ HOWARD [facility] [id number] [facility] 2020-06-16 15:30:00 2020-06-16 15:30:00 Outpatient RAD MATAMOROS [facility] [id number] [facility] 2020-06-09 12:30:00 2020-06-09 12:30:00 Outpatient NI YUNG [facility] [id number] [facility] 2020-06-08 08:00:00 2020-06-08 08:00:00 Outpatient NI YUNG [facility] [id number] [facility] 2020-06-02 09:00:00 2020-06-02 09:00:00 Outpatient RAD MATAMOROS [facility] [id number]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 Reference Range Interpretation Comme nts Deamidated Gliadin Peptide (DGP) Ab, IgG Interpretation (test code = 09989-6) Negative Negative Deamidated Gliadin Peptide (DGP) Ab, IgG (test code = 6683958660) <=7.0 WESLEY (test code = WESLEY) < 7 U/mL ? Negative7 - 10 U/mL ?Equivocal> 10 U/mL ?Positive In case of equivocal results, we recommend to retest the patient after 8 -12 weeks. Lab Interpretation (test code = 10678-9) Normal [facility] CenterDeamidated Gliadin [id number] 19:08:56* Test Item Value Reference Range Interpretation Comme nts Deamidated Gliadin Peptide (DGP) Ab, IgG Interpretation (test code = 53424-2) Negative Negative Deamidated Gliadin Peptide (DGP) Ab, IgG (test code = 3819278793) <=7.0 WESLEY (test code = WESLEY) < 7 U/mL ? Negative7 - 10 U/mL ?Equivocal> 10 U/mL ?Positive In case of equivocal results, we recommend to retest the patient after 8 -12 weeks. Lab Interpretation (test code = 61827-4) Normal [facility] CenterDeamidated Gliadin [id number] 19:08:55* Test Item Value Reference Range Interpretation Comme nts Deamidated Gliadin Peptide (DGP) Ab, IgA Interpretation (test code = 93599-5) Negative Negative Deamidated Gliadin Peptide (DGP) Ab, IgA (test code = 4764097481) 0.8 U/mL <=7.0 WESLEY (test code = WESLEY) < 7 U/mL ? Negative7 - 10 U/mL ?Equivocal> 10 U/mL ?Positive In case of equivocal results, we recommend to retest the patient after 8 -12 weeks. Lab Interpretation (test code = 62725-0) Normal [facility] CenterDeamidated Gliadin [id number] 19:08:55* Test Item Value Reference Range Interpretation Comme nts Deamidated Gliadin Peptide (DGP) Ab, IgA Interpretation (test code = 40749-1) Negative Negative Deamidated Gliadin Peptide (DGP) Ab, IgA (test code = 4402628100) 0.8 U/mL <=7.0 WESLEY (test code = WESLEY) < 7 U/mL ? Negative7 - 10 U/mL ?Equivocal> 10 U/mL ?Positive In case of equivocal results, we recommend to retest the patient after 8 -12 weeks. Lab Interpretation (test code = 04643-0) Normal [facility] CenterXR [id number] 21:07:52EXAM: XR KUB HISTORY: 29 years-old Female; Provided indication: Checking for bowelobstruction or con stipation . TECHNIQUE: Frontal view of the abdomen and pelvis COMPARISON: MR abdomen [facility]XR [id number] 21:07:52EXAM: XR KUB HISTORY: 29 years-old Female; Provided indication: Checking for bowelobstruction or constipation . TECHNIQUE: Frontal view of the abdomen and pelvis COMPARISON: MR abdomen obtained on 02/25/2024[facility]neMR [facility]BD[facility] W WO CONTRAST [id number] 21:07:42EXAM: MRI ABDOMEN with and without CONTRAST [...] cholecystectomy. There is a tiny focus of P4zheigtteipleow seen only on the T2 fat-suppressed axial [...] No lymphadenopathy. VESSELS:Unremarkable. BONES AND SOFT TISSUES: Unremarkable.[facility] CenterMR ABDOMEN W WO CONTRAST [id number] 21:07:42EXAM: MRI ABDOMEN with and without CONTRAST [...] cholecystectomy. There is a tiny focus of H7rxkmawjpxzefqn seen only on the T2 fat-suppressed axial [...] No lymphadenopathy. VESSELS:Unremarkable. BONES AND SOFT TISSUES: Unremarkable.[facility] GLUCOSE (AUTOMATED) 2024-02-24 01:35:26* Test Item Value Reference Range Interpretation Comme [facility] POCT GLU (test code = 9811572365) 95 mg/dL 70-110 Lab Interpretation (test cod e = 66786-3) Normal [facility] GLUCOSE (AUTOMATED)2024-02-24 01:35:26* Test Item Value Reference Range Interpretation Comme [facility] POCT GLU (test code = 4121887229) 95 mg/dL 70-110 Lab Interpretation (test cod e = 38760-3) [facility] [id number] 21:28:55* Test Item Value Reference Range Interpretation Comme [facility] HCV Ab (test code = 89985-1) Negative HCV Semi-Quantitative (test code = 84221-9) 0.01 [facility] Oaqjikul5259-12-19 21:28:55* Test Item Value Reference Range Interpretation Comme [facility] HCV Ab (test code = 67213-5) Negative HCV Semi-Quantitative (test code = 80988-7) 0.01 [facility] Jifsvpp6022-45-27 18:59:19* Test Item Value Reference Range Interpretation Comme [facility] CRP (test code = 1427203580) 0.3 mg/dL <=0.8 Lab Interpretation (test cod e = 75169-6) Normal [facility] Vaipegz4634-68-04 18:59:19* Test Item Value Reference Range Interpretation Comme [facility] CRP (test code = 7556233472) 0.3 mg/dL <=0.8 Lab Interpretation (test cod e = 26515-6) Normal [facility] Surface Dmtytvym3408-66-11 16:37:53* Test Item Value Reference Range Interpretation Comme [facility] HBsAB (test code = 7035656097) Negative HBsAb Semi-Quantitative (test code = 3176756872) 0.00 mIU/mL WESLEY (test code = WESLEY) Interpretation: ?Hepatitis B Surface Antibody ? Negative - Patient is considered to be not immune to infection with HBV. ? ? Positive - Anti-HBs detected at greater than or equal to 12 mIU/mL. ?Patient is considered to be immune to infection with HBV. ? [facility]He[facility] hospitaltis [facility] Surface Wtmcmrsa7664-30-81 16:37:53* Test Item Value Reference Range Interpretation Comme [facility] HBsAB (test code = 8583316271) Negative HBsAb Semi-Quantitative (test code = 1710601505) 0.00 mIU/mL WESLEY (test code = WESLEY) Interpretation: ?Hepatitis B Surface Antibody ? Negative - Patient is considered to be not immune to infection with HBV. ? ? Positive - Anti-HBs detected at greater than or equal to 12 mIU/mL. ?Patient is considered to be immune to infection with HBV. ? [facility] Center[facility]2 Ag-Ab with Crntri2553-09-49 16:37:47* Test Item Value Reference Range Interpretation Comme [facility] HIV Semi-quantitative (test code = 46482-4) 0.09 Negative WESLEY (test code = WESLEY) Non-reactive for HIV-1 antigen and HIV-1/HIV-2 antibodies. ?No laboratory evidence of HIV infection. ?Repeat in 2-4 weeks if acute HIV infection is suspected. [facility] B Surface [id number] 16:37:47 * Test Item Value Reference Range Interpretation Comme nts HBsAg Semi-Quantitative (maeve t code = 5195-3) 0.12 Negative [facility]2 Ag-Ab with [id number] 16:37:47* Test Item Value Reference Range Interpretation Comme nts HIV Semi-quantitative (test code = 91452-3) 0.09 Negative WESLEY (test code = WESLEY) Non-reactive for HIV-1 antigen and HIV-1/HIV-2 antibodies. ?No laboratory evidence of HIV infection. ?Repeat in 2-4 weeks if acute HIV infection is suspected. [facility] [id number] 16:37:47 * Test Item Value Reference Range Interpretation Comme nts HBsAg Semi-Quantitative (maeve t code = 5195-3) 0.12 Negative [facility] CenterHbc Antibody (IgM & IgG)2024-02-23 16:37:42* Test Item Value Reference Range Interpretation Comme nts HBC (test code = 3856159768) Negative HBC Semi-Quantitative (test code = 4217459801) 3.51 [facility] CenterHbc Antibody (IgM & IgG)2024-02-23 16:37:42* Test Item Value Reference Range Interpretation Comme nts HBC (test code = 1848090394) Negative HBC Semi-Quantitative (test code = 1907821419) 3.51 [facility] CenterSedimentation [id number] 13:48:13* Test Item Value Reference Range Interpretation Comme nts ESR (test code = 85975-3) 23 2-30 Lab Interpretation (test cod e = 91150-9) Normal [facility] CenterSedimentation [id number] 13:48:13* Test Item Value Reference Range Interpretation Comme nts ESR (test code = 90416-1) 23 2-30 Lab Interpretation (test cod e = 58818-0) Normal [facility] CenterHepatic Function Panel ([id number]) (ALB,T.PRO,BILI T,BU/BC,ALT,AST,ALK PHOS)2024-02-22 19:51:55* Test Item Value Reference Range Interpretation Comme nts TOTAL BILI (test code = 2209895328) 1.0 mg/dL 0.1-1.1 BILI UNCON (test code = 7831722613) 0.4 mg/dL 0.1-1.1 BILI CONJ (test code = 3414196700) 0.0 mg/dL 0.0-0.3 T PROTEIN (test code = 4546457128) 8.5 g/dL 6.3-8.2 H ALBUMIN (test code = 5989663424) 4.9 g/dL 3.5-5.0 ALK PHOS (test code = 6142588218) 87 U/L 34-122 Slight hemolysis ALTv (test code = 1742-6) 77 U/L 5-35 H AST(SGOT) (test code = 9504205236) 57 U/L 13-40 H Slight hemolysis Lab Interpretation (test code = 08280-3) Abnormal [facility] CenterHepatic Function Panel (72745) (ALB,T.PRO,BILI T,BU/BC,ALT,AST,ALK PHOS)2024-02-22 19:51:55* Test Item Value Reference Range Interpretation Comme nts TOTAL BILI (test code = 8360152764) 1.0 mg/dL 0.1-1.1 BILI UNCON (test code = 9704499210) 0.4 mg/dL 0.1-1.1 BILI CONJ (test code = 3643340511) 0.0 mg/dL 0.0-0.3 T PROTEIN (test code = 9229912822) 8.5 g/dL 6.3-8.2 H ALBUMIN (test code = 8820676021) 4.9 g/dL 3.5-5.0 ALK PHOS (test code = 9320638823) 87 U/L 34-122 Slight hemolysis ALTv (test code = 1742-6) 77 U/L 5-35 H AST(SGOT) (test code = 0904278433) 57 U/L 13-40 H Slight hemolysis Lab Interpretation (test code = 06659-9) Abnormal [facility] CenterXR CHEST 2 [id number] 18:19:37ORDERING PROVIDER: ?COLIN ELMORE MORRICAL HISTORY: Hematemesis TECHNIQUE: Frontal and lateral views of the Chest. [facility] [id number] 18:19:37ORDERING PROVIDER: ?COLIN ELMORE MORRICAL HISTORY: Hematemesis TECHNIQUE: Frontal and lateral views of the Chest. [facility] [id number] 17:50:15ORDERING PROVIDER: LENCHOANASTASIYA VARMAEz MORRICAL HISTORY: N/v/diarrhea [...] corticalthickness, contour and echogenicity.[facility] ABDOMEN [id number] 17:50:15ORDERING PROVIDER: COLIN ELMORE MORRICAL HISTORY: N/v/diarrhea [...] lesions. ?There is normal corticalthickness, contour and echogenicity.[facility]OP[facility] [id number] 15:52:12* Test Item Value Reference Range Interpretation Comme nts TROPONIN I (test code = 0886087081) 0.006 ng/mL <=0.034 WESLEY (test code = [...] of biotin. Lab Interpretation (test code = 79465-2) Normal [facility] [id number] 15:52:12* Test Item Value Reference Range Interpretation Comme nts TROPONIN I (test code = 5092800841) 0.006 ng/mL <=0.034 WESLEY (test code = [...] of biotin. Lab Interpretation (test code = 07394-1) Normal [facility] CenterPREGNANCY TEST, [id number] 15:52:07* Test Item Value Reference Range Interpretation Comme nts PREG SERUM (test code = 4155207786) Negative WESLEY (test code = WESLEY) Less than 10 IU/L. ?If low titer or ectopic is suspected, resubmit specimen in 48-72 hours. [facility] CenterPREGNANCY TEST, [id number] 15:52:07* Test Item Value Reference Range Interpretation Comme nts PREG SERUM (test code = 4837282622) Negative WESLEY (test code = WESLEY) Less than 10 IU/L. ?If low titer or ectopic is suspected, resubmit specimen in 48-72 hours. [facility] CenterLIPASE2024-10-12 15:40:04* Test Item Value Reference Range Interpretation Comme nts LIPASE (test code = 3388691845) 69 U/L 0-220 Lab Interpretation (test cod e = 97540-0) Normal [facility] CenterLIPASE2024-10-12 15:40:04* Test Item Value Reference Range Interpretation Comme nts LIPASE (test code = 9740094410) 69 U/L 0-220 Lab Interpretation (test cod e = 75837-9) Normal [facility] CenterCOM. METABOLIC PANEL (22322)2024-02-22 15:40:03* Test Item Value Reference Range Interpretation Comme nts NA (test code = 7418689032) 137 mmol/L 135-145 K (test code = 8865749655) 3.9 mmol/L 3.5-5.0 Slight hemolysis CL (test code = 3735725550) 102 mmol/L 98-108 CO2 TOTAL (test code = 8542876993) 24 mmol/L 23-31 AGAP (test code = 3183313734) 11 2-16 BUN (test code = 1575331727) 9 mg/dL 7-23 Slight hemolysis GLUCOSE (test code = 0930670461) 94 mg/dL 70-110 CREATININE (test code = 2160-0) 0.70 mg/dL 0.50-1.04 TOTAL BILI (test code = 4399434974) 1.0 mg/dL 0.1-1.1 CALCIUM (test code = 7159953695) 9.3 mg/dL 8.6-10.6 T PROTEIN (test code = 4026270467) 8.4 g/dL 6.3-8.2 H ALBUMIN (test code = 4031671806) 5.0 g/dL 3.5-5.0 ALK PHOS (test code = 6898396275) 79 U/L 34-122 Slight hemolysis ALTv (test code = 1742-6) 74 U/L 5-35 H AST(SGOT) (test code = 8337463871) 57 U/L 13-40 H Slight hemolysis eGFR (test code = 51184-1) 120.2 mL/min/1.73m2 CKD-EPI eGFR (2020). Assuming creatinine has been stable day-to-day for at least three months, the eGFR indicates Category G1 (>= 90 mL/min/1.73 m2) Lab Interpretation (test code = 65519-4) Abnormal [facility]. METABOLIC PANEL (96251)2024-02-22 15:40:03* Test Item Value Reference Range Interpretation Comme nts NA (test code = 4903724408) 137 mmol/L 135-145 K (test code = 3119072575) 3.9 mmol/L 3.5-5.0 Slight hemolysis CL (test code = 9032319891) 102 mmol/L 98-108 CO2 TOTAL (test code = 7830633467) 24 mmol/L 23-31 AGAP (test code = 7220456831) 11 2-16 BUN (test code = 6651489403) 9 mg/dL 7-23 Slight hemolysis GLUCOSE (test code = 7326890473) 94 mg/dL 70-110 CREATININE (test code = 2160-0) 0.70 mg/dL 0.50-1.04 TOTAL BILI (test code = 8779711691) 1.0 mg/dL 0.1-1.1 CALCIUM (test code = 0093037709) 9.3 mg/dL 8.6-10.6 T PROTEIN (test code = 3973550518) 8.4 g/dL 6.3-8.2 H ALBUMIN (test code = 2949540422) 5.0 g/dL 3.5-5.0 ALK PHOS (test code = 7709814445) 79 U/L 34-122 Slight hemolysis ALTv (test code = 1742-6) 74 U/L 5-35 H AST(SGOT) (test code = 6819996272) 57 U/L 13-40 H Slight hemolysis eGFR (test code = 24059-2) 120.2 mL/min/1.73m2 CKD-EPI eGFR (2020). Assuming creatinine has been stable day-to-day for at least three months, the eGFR indicates Category G1 (>= 90 mL/min/1.73 m2) Lab Interpretation (test code = 30464-4) Abnormal [facility] WITH [id number] 15:35:41* Test Item Value Reference Range Interpretation [...] 34.3 g/dL 31.6-35.1 RDW-SD (test code = 45883-0) 41.3 fL 39.0-49.9 RDW-CV (test code = 788-0) 13.2 % 12.0-15.5 PLT (test code = 777-3) 329 166-358 MPV (test code = 84017-3) 9.9 fL 9.5-12.9 NRBC/100 WBC (test code = 3803472640) 0.0 0.0-10.0 NRBC x10^3 (test code = 1956338450) See_Comment [Automated messa ge] The system which generated this result transmitted reference range: 10*3/?L. The reference range was not used to interpret this result as normal/abnormal. GRAN MAT (NEUT) % (test code = 770-8) 66.5 % IMM GRAN % (test code = 2153847969) 0.30 % LYMPH % (test code = 736-9) 26.8 % MONO % (test code = 5905-5) 3.5 % EOS % (test code = 713-8) 2.3 % BASO % (test code = 706-2) 0.6 % GRAN MAT x10^3(ANC) (test code = 1533465839) 5.71 10*3/uL 1.88-7.09 IMM GRAN x10^3 (test code = 6696086445) 0.03 10*3/uL 0.00-0.06 LYMPH x10^3 (test code = 731-0) 2.30 10*3/uL 1.32-3.29 MONO x10^3 (test code = 742-7) 0.30 10*3/uL 0.33-0.92 L EOS x10^3 (test code = 711-2) 0.20 10*3/uL 0.03-0.39 BASO x10^3 (test code = 704-7) 0.05 10*3/uL 0.01-0.07 Lab Interpretation (test code = 19185-0) Abnormal [facility] WITH [id number] 15:35:41* Test Item Value Reference Range Interpretation [...] 34.3 g/dL 31.6-35.1 RDW-SD (test code = 26428-9) 41.3 fL 39.0-49.9 RDW-CV (test code = 788-0) 13.2 % 12.0-15.5 PLT (test code = 777-3) 329 166-358 MPV (test code = 42256-4) 9.9 fL 9.5-12.9 NRBC/100 WBC (test code = 1361302223) 0.0 0.0-10.0 NRBC x10^3 (test code = 6568797404) See_Comment [Automated messa ge] The system which generated this result transmitted reference range: 10*3/?L. The reference range was not used to interpret this result as normal/abnormal. GRAN MAT (NEUT) % (test code = 770-8) 66.5 % IMM GRAN % (test code = 1068707939) 0.30 % LYMPH % (test code = 736-9) 26.8 % MONO % (test code = 5905-5) 3.5 % EOS % (test code = 713-8) 2.3 % BASO % (test code = 706-2) 0.6 % GRAN MAT x10^3(ANC) (test code = 9125929565) 5.71 10*3/uL 1.88-7.09 IMM GRAN x10^3 (test code = 3492862124) 0.03 10*3/uL 0.00-0.06 LYMPH x10^3 (test code = 731-0) 2.30 10*3/uL 1.32-3.29 MONO x10^3 (test code = 742-7) 0.30 10*3/uL 0.33-0.92 L EOS x10^3 (test code = 711-2) 0.20 10*3/uL 0.03-0.39 BASO x10^3 (test code = 704-7) 0.05 10*3/uL 0.01-0.07 Lab Interpretation (test code = 13858-3) Abnormal [facility] CenterCOMP. METABOLIC PANEL (64746)2023-05-19 17:55:27* Test Item Value Reference Range Interpretation Comme nts NA (test code = 6147513948) 138 mmol/L 135-145 K (test code = 9363474774) 3.8 mmol/L 3.5-5.0 CL (test code = 0198441687) 107 mmol/L 98-108 CO2 TOTAL (test code = 9635491188) 21 mmol/L 23-31 L AGAP (test code = 2960605857) 10 2-16 BUN (test code = 1278571542) 8 mg/dL 7-23 GLUCOSE (test code = 8806302593) 89 mg/dL 70-110 CREATININE (test code = 1773743242) 0.69 mg/dL 0.50-1.04 TOTAL BILI (test code = 0433207071) 0.7 mg/dL 0.1-1.1 CALCIUM (test code = 6749494845) 8.3 mg/dL 8.6-10.6 L T PROTEIN (test code = 4805637641) 7.3 g/dL 6.3-8.2 ALBUMIN (test code = 2986601455) 4.1 g/dL 3.5-5.0 ALK PHOS (test code = 7045909940) 107 U/L 34-122 ALTv (test code = 1742-6) 75 U/L 5-35 H AST(SGOT) (test code = 0753612378) 42 U/L 13-40 H eGFR (test code = 73278-1) 121.4 mL/min/1.73m2 CKD-EPI eGFR (2020). Assuming creatinine has been stable day-to-day for at least three months, the eGFR indicates Category G1 (>= 90 mL/min/1.73 m2) Lab Interpretation (test code = 88199-5) Abnormal [facility] CenterLIPASE2024-01-07 16:39:24* Test Item Value Reference Range Interpretation Comme nts LIPASE (test code = 9618739821) 40 U/L 0-220 Lab Interpretation (test cod e = 27398-6) Normal [facility] CenterCT ABDOMEN PELVIS W [id number] 16:27:28EXAM: CT ABDOMEN PELVIS W CONTRAST HISTORY: [...] hypodensity isseen within the right gluteal soft tissue.[facility] CBC WITH [id number] 16:14:18* Test Item Value Reference Range Interpretation Comme nts WBC (test code = 6690-2) 6.32 See_Comment [Automated [employer]] The system which generated this result transmitted reference range: 4.30 - 11.10 10*3/?L. The reference range was not used to interpret this result as normal/abnormal. RBC (test code = 789-8) 4.61 See_Comment [Automated [employer]] The system which generated this result transmitted [...] 34.1 g/dL 31.6-35.1 RDW-SD (test code = 07145-2) 42.0 fL 39.0-49.9 RDW-CV (test code = 788-0) 13.0 % 12.0-15.5 PLT (test code = 777-3) 369 See_Comment H [Automated [employer]] The system which generated this result transmitted reference range: 166 - 358 10*3/?L. The reference range was not used to interpret this result as normal/abnormal. MPV (test code = 18261-6) 9.9 fL 9.5-12.9 NRBC/100 WBC (test code = 7579164245) 0.0 See_Comment [Automated me ssage] The system which generated this result transmitted reference range: 0.0 - 10.0 /100 WBCs. The reference range was not used to interpret this result as normal/abnormal. NRBC x10^3 (test code = 1455204922) See_Comment [Automated messa ge] The system which generated this result transmitted reference range: 10*3/?L. The reference range was not used to interpret this result as normal/abnormal. GRAN MAT (NEUT) % (test code = 770-8) 64.8 % IMM GRAN % (test code = 6047374202) 0.50 % LYMPH % (test code = 736-9) 25.3 % MONO % (test code = 5905-5) 4.1 % EOS % (test code = 713-8) 4.7 % BASO % (test code = 706-2) 0.6 % GRAN MAT x10^3(ANC) (test code = 1747993741) 4.09 10*3/uL 1.88-7.09 IMM GRAN x10^3 (test code = 1295613914) 0.03 10*3/uL 0.00-0.06 LYMPH x10^3 (test code = 731-0) 1.60 10*3/uL 1.32-3.29 MONO x10^3 (test code = 742-7) 0.26 10*3/uL 0.33-0.92 L EOS x10^3 (test code = 711-2) 0.30 10*3/uL 0.03-0.39 BASO x10^3 (test code = 704-7) 0.04 10*3/uL 0.01-0.07 Lab Interpretation (test code = 97740-7) Abnormal [facility] CenterPOCT [id number] 15:31:00* Test Item Value Reference Range Interpretation Comme nts POCT PREG (test code = 1605) Negative On board controls acceptable with C Line (test code = 3574) Yes POCT PREG LOT # (test code = 3575) [id number] POCT PREG TEST DATE ( test code = 3576) 2024-07-21 Lab Interpretation (test cod e = 35024-7) Normal [facility] WITH [id number] 04:28:47* Test Item Value Reference Range Interpretation [...] 34.0 g/dL 31.6-35.1 RDW-SD (test code = 45302-8) 40.3 fL 39.0-49.9 RDW-CV (test code = 788-0) 13.1 % 12.0-15.5 PLT (test code = 777-3) 307 See_Comment [Automated messa ge] The system which generated this result transmitted reference range: 166 - 358 10*3/?L. The reference range was not used to interpret this result as normal/abnormal. MPV (test code = 02407-3) 11.0 fL 9.5-12.9 NRBC/100 WBC (test code = 0347704795) 0.0 See_Comment [Automated [employer] ssage] The system which generated this result transmitted reference range: 0.0 - 10.0 /100 WBCs. The reference range was not used to interpret this result as normal/abnormal. NRBC x10^3 (test code = 5445878167) See_Comment [Automated messa ge] The system which generated this result transmitted reference range: 10*3/?L. The reference range was not used to interpret this result as normal/abnormal. GRAN MAT (NEUT) % (test code = 770-8) 52.0 % IMM GRAN % (test code = 0469155669) 0.20 % LYMPH % (test code = 736-9) 38.0 % MONO % (test code = 5905-5) 4.6 % EOS % (test code = 713-8) 4.6 % BASO % (test code = 706-2) 0.6 % GRAN MAT x10^3(ANC) (test code = 7065006375) 2.84 10*3/uL 1.88-7.09 IMM GRAN x10^3 (test code = 8885249293) 0.00-0.06 LYMPH x10^3 (test code = 731-0) 2.07 10*3/uL 1.32-3.29 MONO x10^3 (test code = 742-7) 0.25 10*3/uL 0.33-0.92 L EOS x10^3 (test code = 711-2) 0.25 10*3/uL 0.03-0.39 BASO x10^3 (test code = 704-7) 0.03 10*3/uL 0.01-0.07 Lab Interpretation (test code = 75240-0) Abnormal [facility] CenterCOMP[facility] MET[facility]OLIC PANEL (30244)2023-01-12 04:12:43* Test Item Value Reference Range Interpretation Comme nts NA (test code = 2336151627) 137 mmol/L 135-145 K (test code = 0221295110) 3.4 mmol/L 3.5-5.0 L CL (test code = 1788742564) 104 mmol/L 98-108 CO2 TOTAL (test code = 3208248201) 24 mmol/L 23-31 AGAP (test code = 8281689687) 9 2-16 BUN (test code = 1782668661) 2 mg/dL 7-23 L GLUCOSE (test code = 4721090648) 92 mg/dL 70-110 CREATININE (test code = 8227205231) 0.80 mg/dL 0.50-1.04 TOTAL BILI (test code = 9099203125) 0.4 mg/dL 0.1-1.1 CALCIUM (test code = 3137944357) 8.4 mg/dL 8.6-10.6 L T PROTEIN (test code = 8250384170) 6.3 g/dL 6.3-8.2 ALBUMIN (test code = 2846963929) 3.7 g/dL 3.5-5.0 ALK PHOS (test code = 8909099006) 87 U/L 34-122 ALTv (test code = 1742-6) 27 U/L 5-35 AST(SGOT) (test code = 1785891776) 33 U/L 13-40 eGFR (test code = 9467193420) 86.0 mL/min/1.73m2 WESLEY (test code = WESLEY) [...] imaging tests). Lab Interpretation (test code = 19769-2) Abnormal [facility]. METABOLIC PANEL (47865)2023-01-12 04:12:43* Test Item Value Reference Range Interpretation Comme nts NA (test code = 6465173923) 137 mmol/L 135-145 K (test code = 8869854840) 3.4 mmol/L 3.5-5.0 L CL (test code = 8209593682) 104 mmol/L 98-108 CO2 TOTAL (test code = 3695806780) 24 mmol/L 23-31 AGAP (test code = 6030111262) 9 2-16 BUN (test code = 1185259792) 2 mg/dL 7-23 L GLUCOSE (test code = 7230052741) 92 mg/dL 70-110 CREATININE (test code = 8607705942) 0.80 mg/dL 0.50-1.04 TOTAL BILI (test code = 3434314113) 0.4 mg/dL 0.1-1.1 CALCIUM (test code = 4333605941) 8.4 mg/dL 8.6-10.6 L T PROTEIN (test code = 7452870009) 6.3 g/dL 6.3-8.2 ALBUMIN (test code = 1468836113) 3.7 g/dL 3.5-5.0 ALK PHOS (test code = 6891067253) 87 U/L 34-122 ALTv (test code = 1742-6) 27 U/L 5-35 AST(SGOT) (test code = 9811943654) 33 U/L 13-40 eGFR (test code = 6209109302) 86.0 mL/min/1.73m2 WESLEY (test code = WESLEY) [...] imaging tests). Lab Interpretation (test code = 07019-7) [facility] 04:07:04 BETA HCG<2.39Non- female and male patients: <5 mIU/mL01/11/2023 11:07 PM [facility] Gestational Age ?Range (mIU/mL) 1-10 ?Weeks ?37-28285055-07 Weeks ?61334-06786298-23 Weeks ?6942-50615711-91 Weeks ?1531-035993 Biotin has been reported to cause a negative bias, interpret results relative to patient's use of biotin. Gestational Age ?Range (mIU/mL) 1-10 ?Weeks ?03-66454071-13 Weeks ?42565-36771726-27 Weeks ?5624-25408441-74 Weeks?1531-706508 Biotin has been reported to cause a negative bias, interpret results relative to patient's use of biotin. Gestational Age ?Range (mIU/mL) 1-10 ?Weeks ?73-77396905-91 Weeks ?69233-07414128-75 Weeks ?9842-85973610-82 Weeks ?1531-948982 Biotin has been reported to cause a negative bias, interpretresults relative to patient's use of biotin.[facility]23-[facility]12 04:07:04BETA HCG<2.39Non- female and male patients: <5 mIU/mL01/11/2023 11:07 PM [facility] Gestational Age ?Range (mIU/mL) 1-10 ?Weeks ?73-32119056-10 Weeks ?95405-38851327-37 Weeks ?6529-57905853-47 Weeks ?1531-266089 Biotin has been reported to cause a negative bias, interpret results relative topatient's use of biotin. Gestational Age ?Range (mIU/mL) 1-10 ?Weeks ?37-93146162-65 Weeks ?24747-88360537-58 Weeks ?5887-78850975-55 Weeks?1531-908302 Biotin has been reported to cause a negative bias, interpret results relative to patient's use of biotin. Gestational Age ?Range (mIU/mL) 1-10 ?Weeks ?88-58278347-40 Weeks ?05489-29568525-87 Weeks ?9295-81955783-03 Weeks ?1531-990262 Biotin has been reported to cause a negative bias, interpretresults relative to patient's use of biotin.[facility] 2023-01-12 03:22:58* Test Item Value Reference Range Interpretation Comme nts LIPASE (test code = 4078641359) 41 U/L 0-220 Lab Interpretation (test cod e = 97220-0) Normal [facility]2023-09-02 03:22:58* Test Item Value Reference Range Interpretation Comme nts LIPASE (test code = 3566723009) 41 U/L 0-220 Lab Interpretation (test cod e = 46879-0) Normal [facility] [id number] 03:02:00* Test Item Value Reference Range Interpretation Comme nts POCT PREG (test code = 1605) Negative On board controls acceptable with C Line (test code = 3574) Yes POCT PREG LOT # (test code = 3575) [id number] POCT PREG TEST DATE ( test code = 3576) 05/15/2024 Lab Interpretation (test cod e = 22933-0) Normal [facility] [id number] 03:02:00* Test Item Value Reference Range Interpretation Comme nts POCT PREG (test code = 1605) Negative On board controls acceptable with C Line (test code = 3574) Yes POCT PREG LOT # (test code = 3575) [id number] POCT PREG TEST DATE ( test code = 3576) 05/15/2024 Lab Interpretation (test cod e = 82149-6) Normal [facility], [id number] 00:23:34* Test Item Value Reference Range Interpretation Comme nts PREG SERUM (test code = 4340406291) Negative WESLEY (test code = WESLEY) Less than 10 IU/L. ?If low titer or ectopic is suspected, resubmit specimen in 48-72 hours. [facility]. METABOLIC PANEL (05215)2022-07-31 23:58:12* Test Item Value Reference Range Interpretation Comme nts NA (test code = 2752624490) 140 mmol/L 135-145 K (test code = 8340945556) 3.6 mmol/L 3.5-5.0 CL (test code = 5797089056) 106 mmol/L 98-108 CO2 TOTAL (test code = 8324517913) 21 mmol/L 23-31 L AGAP (test code = 9500043640) 13 2-16 BUN (test code = 9545468318) 8 mg/dL 7-23 GLUCOSE (test code = 4128596828) 90 mg/dL 70-110 CREATININE (test code = 8941727244) 0.90 mg/dL 0.50-1.04 TOTAL BILI (test code = 2710581490) 0.5 mg/dL 0.1-1.1 CALCIUM (test code = 5682049382) 9.0 mg/dL 8.6-10.6 T PROTEIN (test code = 8148039122) 7.8 g/dL 6.3-8.2 ALBUMIN (test code = 4357421748) 4.6 g/dL 3.5-5.0 ALK PHOS (test code = 2185869872) 63 U/L 34-122 ALTv (test code = 1742-6) 23 U/L 5-35 AST(SGOT) (test code = 8771559362) 27 U/L 13-40 eGFR (test code = 0387659209) 75.1 mL/min/1.73m2 WESLEY (test code = WESLEY) [...] imaging tests). Lab Interpretation (test code = 97364-2) [facility]* Test Item Value Reference Range Interpretation Comme nts LIPASE (test code = 3705959559) 55 U/L 0-220 Lab Interpretation (test cod e = 29168-4) [facility] [id number] 23:47:31* Test Item Value Reference Range Interpretation Comme nts WBC (test code = 6690-2) 5.64 See_Comment [Automated [employer] ge] The system which generated this result [...] 32.6 g/dL 31.6-35.1 RDW-SD (test code = 56500-8) 42.5 fL 39.0-49.9 RDW-CV (test code = 788-0) 13.0 % 12.0-15.5 PLT (test code = 777-3) 339 See_Comment [Automated messa ge] The system which generated this result transmitted reference range: 166 - 358 10*3/?L. The reference range was not used to interpret this result as normal/abnormal. MPV (test code = 68251-0) 9.4 fL 9.5-12.9 L NRBC/100 WBC (test code = 5277987090) 0.0 See_Comment [Automated [employer] ssage] The system which generated this result transmitted reference range: 0.0 - 10.0 /100 WBCs. The reference range was not used to interpret this result as normal/abnormal. NRBC x10^3 (test code = 9858370133) See_Comment [Automated messa ge] The system which generated this result transmitted reference range: 10*3/?L. The reference range was not used to interpret this result as normal/abnormal. GRAN MAT (NEUT) % (test code = 770-8) 51.2 % IMM GRAN % (test code = 6720769635) 0.20 % LYMPH % (test code = 736-9) 36.5 % MONO % (test code = 5905-5) 5.7 % EOS % (test code = 713-8) 5.9 % BASO % (test code = 706-2) 0.5 % GRAN MAT x10^3(ANC) (test code = 9933074251) 2.89 10*3/uL 1.88-7.09 IMM GRAN x10^3 (test code = 5731664588) 0.00-0.06 LYMPH x10^3 (test code = 731-0) 2.06 10*3/uL 1.32-3.29 MONO x10^3 (test code = 742-7) 0.32 10*3/uL 0.33-0.92 L EOS x10^3 (test code = 711-2) 0.33 10*3/uL 0.03-0.39 BASO x10^3 (test code = 704-7) 0.03 10*3/uL 0.01-0.07 Lab Interpretation (test code = 29789-3) [facility] [id number] 16:14:38* Test Item Value Reference Range Interpretation Comme nts POCT Molecular Strep (test c ode = 78824-6) Negative Negative Lab Interpretation (test cod e = 71256-0) Normal [facility]. METABOLIC PANEL (99432)2022-05-05 19:35:37* Test Item Value Reference Range Interpretation Comme nts NA (test code = 2146714635) 139 mmol/L 135-145 K (test code = 1970974779) 4.4 mmol/L 3.5-5.0 CL (test code = 3167685375) 104 mmol/L 98-108 CO2 TOTAL (test code = 4684233245) 22 mmol/L 23-31 L AGAP (test code = 0508740396) 2-16 BUN (test code = 5825058716) 11 mg/dL 7-23 GLUCOSE (test code = 6392889475) 95 mg/dL 70-110 CREATININE (test code = 8469957486) 0.71 mg/dL 0.50-1.04 TOTAL BILI (test code = 6393989152) 0.4 mg/dL 0.1-1.1 CALCIUM (test code = 7992284320) 9.1 mg/dL 8.6-10.6 T PROTEIN (test code = 6095523187) 7.9 g/dL 6.3-8.2 ALBUMIN (test code = 4362340081) 4.7 g/dL 3.5-5.0 ALK PHOS (test code = 6252830596) 114 U/L 34-122 ALTv (test code = 1742-6) 21 U/L 5-35 AST(SGOT) (test code = 2440073391) 21 U/L 13-40 eGFR (test code = 0548015203) mL/min/1.73m2 WESLEY (test code = WESLEY) Association [...] imaging tests). Lab Interpretation (test code = 67312-6) Abnormal [facility] WITH [id number] 19:25:37* Test Item Value Reference Range Interpretation Comme nts WBC (test code = 6690-2) See_Comment [Automated [employer]] The system which generated this result transmitted reference range: 4.30 - 11.10 10*3/?L. The reference range was not used to interpret this result as normal/abnormal. RBC (test code = 789-8) See_Comment [Automated [employer]] The system which generated this result [...] 32.9 g/dL 31.6-35.1 RDW-SD (test code = 77599-5) 41.7 fL 39.0-49.9 RDW-CV (test code = 788-0) 12.7 % 12.0-15.5 PLT (test code = 777-3) See_Comment H [Automated [employer]] The system which generated this result transmitted reference range: 166 - 358 10*3/?L. The reference range was not used to interpret this result as normal/abnormal. MPV (test code = 96382-3) 8.8 fL 9.5-12.9 L NRBC/100 WBC (test code = 4641073493) See_Comment [Automated me ssage] The system which generated this result transmitted reference range: 0.0 - 10.0 /100 WBCs. The reference range was not used to interpret this result as normal/abnormal. NRBC x10^3 (test code = 0734884064) See_Comment [Automated messa ge] The system which generated this result transmitted reference range: 10*3/?L. The reference range was not used to interpret this result as normal/abnormal. GRAN MAT (NEUT) % (test code = 770-8) 56.1 % IMM GRAN % (test code = 2708452032) 0.40 % LYMPH % (test code = 736-9) 29.9 % MONO % (test code = 5905-5) 5.4 % EOS % (test code = 713-8) 7.8 % BASO % (test code = 706-2) 0.4 % GRAN MAT x10^3(ANC) (test code = 3705526448) 3.75 10*3/uL 1.88-7.09 IMM GRAN x10^3 (test code = 0821417456) 0.03 10*3/uL 0.00-0.06 LYMPH x10^3 (test code = 731-0) 2.00 10*3/uL 1.32-3.29 MONO x10^3 (test code = 742-7) 0.36 10*3/uL 0.33-0.92 EOS x10^3 (test code = 711-2) 0.52 10*3/uL 0.03-0.39 H BASO x10^3 (test code = 704-7) 0.03 10*3/uL 0.01-0.07 Lab Interpretation (test code = 66184-3) [id number] 19:00:00* Test Item Value Reference Range Interpretation Comme nts POCT PREG (test code = 1605) negative On board controls acceptable with C Line (test code = 3574) present POCT PREG LOT # (test code = 3575) [id number] POCT PREG TEST DATE ( test code = 3576) 08-11-2023 Lab Interpretation (test cod e = 02328-1) Normal [facility] WITH [id number] 15:21:11* Test Item Value Reference Range Interpretation [...] 33.0 g/dL 31.6-35.1 RDW-SD (test code = 83248-1) 42.6 fL 39.0-49.9 RDW-CV (test code = 788-0) 12.9 % 12.0-15.5 PLT (test code = 777-3) See_Comment H [Automated messa ge] The system which generated this result transmitted reference range: 166 - 358 10*3/?L. The reference range was not used to interpret this result as normal/abnormal. MPV (test code = 06175-2) 9.1 fL 9.5-12.9 L NRBC/100 WBC (test code = 0759636341) See_Comment [Automated [employer] ssage] The system which generated this result transmitted reference range: 0.0 - 10.0 /100 WBCs. The reference range was not used to interpret this result as normal/abnormal. NRBC x10^3 (test code = 6329767761) See_Comment [Automated messa ge] The system which generated this result transmitted reference range: 10*3/?L. The reference range was not used to interpret this result as normal/abnormal. GRAN MAT (NEUT) % (test code = 770-8) 56.8 % IMM GRAN % (test code = 4300206037) 0.30 % LYMPH % (test code = 736-9) 29.5 % MONO % (test code = 5905-5) 4.3 % EOS % (test code = 713-8) 8.3 % BASO % (test code = 706-2) 0.8 % GRAN MAT x10^3(ANC) (test code = 5068270227) 3.57 10*3/uL 1.88-7.09 IMM GRAN x10^3 (test code = 1402417257) 0.00-0.06 LYMPH x10^3 (test code = 731-0) 1.85 10*3/uL 1.32-3.29 MONO x10^3 (test code = 742-7) 0.27 10*3/uL 0.33-0.92 L EOS x10^3 (test code = 711-2) 0.52 10*3/uL 0.03-0.39 H BASO x10^3 (test code = 704-7) 0.05 10*3/uL 0.01-0.07 Lab Interpretation (test code = 43200-6) [facility] (52015)2022-04-26 15:12:13* Test Item Value Reference Range Interpretation Comme nts NA (test code = 7983044568) 141 mmol/L 135-145 K (test code = 0462535574) 3.4 mmol/L 3.5-5.0 L CL (test code = 7324626753) 104 mmol/L 98-108 CO2 TOTAL (test code = 7533991201) 23 mmol/L 23-31 AGAP (test code = 9039247797) 2-16 BUN (test code = 8816990306) 9 mg/dL 7-23 GLUCOSE (test code = 3527439209) 101 mg/dL 70-110 CREATININE (test code = 0369034947) 0.82 mg/dL 0.50-1.04 TOTAL BILI (test code = 2891387374) 0.7 mg/dL 0.1-1.1 CALCIUM (test code = 8285787421) 9.3 mg/dL 8.6-10.6 T PROTEIN (test code = 6093313819) 8.1 g/dL 6.3-8.2 ALBUMIN (test code = 1784526344) 4.7 g/dL 3.5-5.0 ALK PHOS (test code = 3490286888) 108 U/L 34-122 ALTv (test code = 1742-6) 24 U/L 5-35 AST(SGOT) (test code = 2903433266) 49 U/L 13-40 H eGFR (test code = 2315057474) mL/min/1.73m2 WESLEY (test code = WESLEY) Association [...] imaging tests). Lab Interpretation (test code = 03866-7) Abnormal [facility] [id number] 14:45:00* Test Item Value Reference Range Interpretation Comme nts POCT PREG (test code = 1605) negative On board controls acceptable with C Line (test code = 3574) present POCT PREG LOT # (test code = 3575) [id number] POCT PREG TEST DATE ( test code = 3576) 08/11/2023 Lab Interpretation (test cod e = 66020-9) [facility] [id number] 01:22:00* Test Item Value Reference Range Interpretation Comme nts POCT PREG (test code = 1605) Negative On board controls acceptable with C Line (test code = 3574) Present POCT PREG LOT # (test code = 3575) [id number] POCT PREG TEST DATE ( test code = 3576) 08-11-2023 Lab Interpretation (test cod e = 26517-4) Normal [facility] METABOLIC PANEL (NA, K, CL, CO2, GLUCOSE, BUN, CREATININE, CA)2022-04-07 23:01:10* Test Item Value Reference Range Interpretation Comme nts NA (test code = 7292878776) 138 mmol/L 135-145 K (test code = 9974879583) 4.3 mmol/L 3.5-5.0 CL (test code = 2968824364) 107 mmol/L 98-108 CO2 TOTAL (test code = 2086904935) 20 mmol/L 23-31 L AGAP (test code = 0134694795) 2-16 BUN (test code = 4323196692) 9 mg/dL 7-23 GLUCOSE (test code = 1244127484) 204 mg/dL 70-110 H CREATININE (test code = 4022333830) 0.74 mg/dL 0.50-1.04 CALCIUM (test code = 6955749100) 9.1 mg/dL 8.6-10.6 eGFR (test code = 7753763886) mL/min/1.73m2 WESLEY (test code = WESLEY) Association [...] imaging tests). Lab Interpretation (test code = 35746-5) Abnormal [facility] WITH [id number] 22:57:34* Test Item Value Reference Range Interpretation Comme nts WBC (test code = 6690-2) See_Comment [Automated [employer]] The system which generated this result transmitted reference range: 4.30 - 11.10 10*3/?L. The reference range was not used to interpret this result as normal/abnormal. RBC (test code = 789-8) See_Comment [CRMnext] The system which generated this result transmitted [...] 33.5 g/dL 31.6-35.1 RDW-SD (test code = 98547-9) 42.9 fL 39.0-49.9 RDW-CV (test code = 788-0) 13.4 % 12.0-15.5 PLT (test code = 777-3) See_Comment H [Automated messa ge] The system which generated this result transmitted reference range: 166 - 358 10*3/?L. The reference range was not used to interpret this result as normal/abnormal. MPV (test code = 53936-8) 8.9 fL 9.5-12.9 L NRBC/100 WBC (test code = 6987145396) See_Comment [Automated me ssage] The system which generated this result transmitted reference range: 0.0 - 10.0 /100 WBCs. The reference range was not used to interpret this result as normal/abnormal. NRBC x10^3 (test code = 1158540181) See_Comment [Automated messa ge] The system which generated this result transmitted reference range: 10*3/?L. The reference range was not used to interpret this result as normal/abnormal. GRAN MAT (NEUT) % (test code = 770-8) 88.7 % IMM GRAN % (test code = 0870777077) 0.70 % LYMPH % (test code = 736-9) 9.4 % MONO % (test code = 5905-5) 0.9 % EOS % (test code = 713-8) 0.1 % BASO % (test code = 706-2) 0.2 % GRAN MAT x10^3(ANC) (test code = 2256296480) 7.81 10*3/uL 1.88-7.09 H IMM GRAN x10^3 (test code = 4820306843) 0.06 10*3/uL 0.00-0.06 LYMPH x10^3 (test code = 731-0) 0.83 10*3/uL 1.32-3.29 L MONO x10^3 (test code = 742-7) 0.08 10*3/uL 0.33-0.92 L EOS x10^3 (test code = 711-2) 0.03-0.39 L BASO x10^3 (test code = 704-7) 0.01-0.07 Lab Interpretation (test code = 22602-4) Abnormal [facility] [id number] 14:07:00* Test Item Value Reference Range Interpretation Comme nts POCT PREG (test code = 1605) negative On board controls acceptable with C Line (test code = 3574) present POCT PREG LOT # (test code = 3575) [id number] POCT PREG TEST DATE ( test code = 3576) 08/11/2023 Lab Interpretation (test cod e = 87926-7) Normal [facility] [id number] 13:52:00* Test Item Value Reference Range Interpretation Comme nts POCT PREG (test code = 1605) negative On board controls acceptable with C Line (test code = 3574) present Lab Interpretation (test cod e = 37850-0) Normal [facility] [id number] 14:59:00* Test Item Value Reference Range Interpretation Comme nts POCT PREG (test code = 1605) negative On board controls acceptable with C Line (test code = 3574) yes POCT PREG LOT # (test code = 3575) [id number] POCT PREG TEST DATE ( test code = 3576) 07/11/2023 Lab Interpretation (test cod e = 44885-3) Normal [facility]. METABOLIC PANEL (95937)2022 17:51:43* Test Item Value Reference Range Interpretation Comme nts NA (test code = 2179135116) 139 mmol/L 135-145 K (test code = 9549469752) 4.1 mmol/L 3.5-5 CL (test code = 3478504907) 104 mmol/L 98-108 CO2 TOTAL (test code = 9979145299) 22 mmol/L 23-31 L AGAP (test code = 7910390360) 2-16 BUN (test code = 0744271511) 7 mg/dL 7-23 GLUCOSE (test code = 6371202068) 114 mg/dL 70-110 H CREATININE (test code = 0231401893) 0.69 mg/dL 0.5-1.04 TOTAL BILI (test code = 8663497790) 0.4 mg/dL 0.1-1.1 CALCIUM (test code = 4460231079) 9.7 mg/dL 8.6-10.6 T PROTEIN (test code = 2221631682) 7.2 g/dL 6.3-8.2 ALBUMIN (test code = 4837852359) 4.6 g/dL 3.5-5 ALK PHOS (test code = 9605278962) 65 U/L 34-122 ALTv (test code = 1742-6) 15 U/L 5-35 AST(SGOT) (test code = 8931047129) 19 U/L 13-40 eGFR (test code = 5987651598) mL/min/1.73m2 WESLEY (test code = WESLEY) Association [...] imaging tests). Lab Interpretation (test code = 28194-1) Abnormal [facility] WITH [id number] 17:40:24* Test Item Value Reference Range Interpretation Comme nts WBC (test code = 6690-2) See_Comment [Automated [employer]] The system which generated this result transmitted [...] 33.3 g/dL 31.6-35.1 RDW-SD (test code = 16221-5) 43.1 fL 39-49.9 RDW-CV (test code = 788-0) 13.2 % 12-15.5 PLT (test code = 777-3) See_Comment [Automated [employer]] The system which generated this result transmitted reference range: 166 - 358 10*3/?L. The reference range was not used to interpret this result as normal/abnormal. MPV (test code = 42193-8) 9.5 fL 9.5-12.9 NRBC/100 WBC (test code = 3474908796) See_Comment [Automated [employer] ssage] The system which generated this result transmitted reference range: 0.0 - 10.0 /100 WBCs. The reference range was not used to interpret this result as normal/abnormal. NRBC x10^3 (test code = 7087781507) See_Comment [Automated [employer]] The system which generated this result transmitted reference range: 10*3/?L. The reference range was not used to interpret this result as normal/abnormal. GRAN MAT (NEUT) % (test code = 770-8) 57.8 % IMM GRAN % (test code = 8280127912) 0.20 % LYMPH % (test code = 736-9) 30.8 % MONO % (test code = 5905-5) 5.1 % EOS % (test code = 713-8) 5.6 % BASO % (test code = 706-2) 0.5 % GRAN MAT x10^3(ANC) (test code = 2654318973) 3.61 10*3/uL 1.88-7.09 IMM GRAN x10^3 (test code = 3914375448) 0-0.06 LYMPH x10^3 (test code = 731-0) 1.92 10*3/uL 1.32-3.29 MONO x10^3 (test code = 742-7) 0.32 10*3/uL 0.33-0.92 L EOS x10^3 (test code = 711-2) 0.35 10*3/uL 0.03-0.39 BASO x10^3 (test code = 704-7) 0.03 10*3/uL 0.01-0.07 Lab Interpretation (test code = 99006-5) Abnormal [facility] [id number] 17:27:00* Test Item Value Reference Range Interpretation Comme nts POCT PREG (test code = 1605) negative On board controls acceptable with C Line (test code = 3574) present POCT PREG LOT # (test code = 3575) [id number] POCT PREG TEST DATE ( test code = 3576) Lab Interpretation (test cod e = 66376-0) [facility] 12:45:21* Test Item Value Reference Range Interpretation Comme nts LIPASE (test code = 2538071693) 41 U/L 0-220 Lab Interpretation (test cod e = 18969-4) Normal [facility] [id number] 10:57:00* Test Item Value Reference Range Interpretation Comme nts POCT PREG (test code = 1605) Negative On board controls acceptable with C Line (test code = 3574) Present POCT PREG LOT # (test code = 3575) [id number] POCT PREG TEST DATE ( test code = 3576) 03/12/2023 Lab Interpretation (test cod e = 20100-9) [facility] (NA, K, CL, CO2, GLUCOSE, BUN, CREATININE, CA)2022-01-18 10:56:51* Test Item Value Reference Range Interpretation Comme nts NA (test code = 6879977854) 137 mmol/L 135-145 K (test code = 7947186299) 4.6 mmol/L 3.5-5 Slight hemolysis CL (test code = 8675024877) 108 mmol/L 98-108 CO2 TOTAL (test code = 4531367794) 22 mmol/L 23-31 L AGAP (test code = 0218713645) 2-16 BUN (test code = 6565164073) 11 mg/dL 7-23 Slight hemolysis GLUCOSE (test code = 4649204677) 83 mg/dL 70-110 CREATININE (test code = 5033957231) 0.68 mg/dL 0.5-1.04 CALCIUM (test code = 6056242648) 8.8 mg/dL 8.6-10.6 eGFR (test code = 7838526334) mL/min/1.73m2 WESLEY (test code = WESLEY) Association [...] imaging tests). Lab Interpretation (test code = 01607-3) Abnormal [facility] (44270) (ALB,T.PRO,BILI T,BU/BC,ALT,AST,ALK PHOS)2022-01-18 10:56:51* Test Item Value Reference Range Interpretation Comme nts TOTAL BILI (test code = 1075334483) 0.6 mg/dL 0.1-1.1 BILI UNCON (test code = 5819974642) 0.1 mg/dL 0.1-1.1 BILI CONJ (test code = 1574682503) 0.0 mg/dL 0-0.3 T PROTEIN (test code = 8185334818) 8.6 g/dL 6.3-8.2 H ALBUMIN (test code = 7453312927) 5.1 g/dL 3.5-5 H ALK PHOS (test code = 2832940985) 79 U/L 34-122 ALTv (test code = 1742-6) 117 U/L 5-35 H AST(SGOT) (test code = 3819967102) 163 U/L 13-40 H Lab Interpretation (test cod e = 72531-9) Abnormal [facility], [id number] 10:54:25* Test Item Value Reference Range Interpretation Comme nts PREG SERUM (test code = 3528231783) Negative WESLEY (test code = WESLEY) Less than 10 IU/L. ?If low titer or ectopic is suspected, resubmit specimen in 48-72 hours. [facility] WITH [id number] 10:40:49* Test Item Value Reference Range Interpretation Comme nts WBC (test code = 6690-2) See_Comment [Automated [employer]] The system which generated this result transmitted reference range: 4.30 - 11.10 10*3/?L. The reference range was not used to interpret this result as normal/abnormal. RBC (test code = 789-8) See_Comment [Automated [employer] ge] The system which generated this result [...] 33.6 g/dL 31.6-35.1 RDW-SD (test code = 50974-2) 45.3 fL 39-49.9 RDW-CV (test code = 788-0) 14.5 % 12-15.5 PLT (test code = 777-3) See_Comment [Automated [employer]] The system which generated this result transmitted reference range: 166 - 358 10*3/?L. The reference range was not used to interpret this result as normal/abnormal. MPV (test code = 83011-6) 9.5 fL 9.5-12.9 NRBC/100 WBC (test code = 6127379366) See_Comment [Automated [employer] ssage] The system which generated this result transmitted reference range: 0.0 - 10.0 /100 WBCs. The reference range was not used to interpret this result as normal/abnormal. NRBC x10^3 (test code = 4758170448) See_Comment [Automated [employer]] The system which generated this result transmitted reference range: 10*3/?L. The reference range was not used to interpret this result as normal/abnormal. GRAN MAT (NEUT) % (test code = 770-8) 47.6 % IMM GRAN % (test code = 8112418992) 0.60 % LYMPH % (test code = 736-9) 39.9 % MONO % (test code = 5905-5) 5.9 % EOS % (test code = 713-8) 5.3 % BASO % (test code = 706-2) 0.7 % GRAN MAT x10^3(ANC) (test code = 4871683819) 4.45 10*3/uL 1.88-7.09 IMM GRAN x10^3 (test code = 1168883406) 0.06 10*3/uL 0-0.06 LYMPH x10^3 (test code = 731-0) 3.74 10*3/uL 1.32-3.29 H MONO x10^3 (test code = 742-7) 0.55 10*3/uL 0.33-0.92 EOS x10^3 (test code = 711-2) 0.50 10*3/uL 0.03-0.39 H BASO x10^3 (test code = 704-7) 0.07 10*3/uL 0.01-0.07 Lab Interpretation (test code = 10182-7) Abnormal [facility] [id number] 18:31:00* Test Item Value Reference Range Interpretation Comme nts POCT PREG (test code = 1605) Negative On board controls acceptable with C Line (test code = 3574) Yes POCT PREG LOT # (test code = 3575) POCT PREG TEST DATE ( test code = 3576) [facility] URINALYSIS W/O SPECIFIC [id number] 18:31:00* Test Item Value Reference Range Interpretation [...] = 3257) Trace Negative - Negati ve [facility] Consult Notes Date/Time Note Provider [...] Nausea and Vomiting History of Present Illness Nataneal Nelia Karis is a 29 year old [...] N/A 07/21/2019 Surgeon: Prasanna Vargas MD; Location: [facility] Labor and Delivery OR Location ESOPHAGOGASTRODUODENOSCOPY Upper 02/27/2024 Surgeon: Jas Buenrostro MD; Location: ENDOSCOPY (CS) OR LOCATION FLEXIBLE SIGMOIDOSCOPY (SHX) N/A 02/27/2024 Surgeon: Jas Buenrostro MD; Location: ENDOSCOPY ([facility]) OR LOCATION TUBAL LIGATION N/A 07/21/2019 Surgeon: Prasanna Vargas MD; Location: [facility] Labor and Delivery OR Location [...] FOCAL NON-SPECIFIC ACUTE INFLAMMATION ASSESSMENT and PLAN Natanale Dyson is a 29 year old female [...] agree with resident's note as written. [facility] 2024-02-26 10:25:08 Associated Order(s): CONSULT GASTROENTEROLOGY [...] N/A 07/21/2019 Surgeon: Prasanna Vargas MD; Location: [facility] Labor and Delivery OR Location TUBAL LIGATION N/A 07/21/2019 Surgeon: Prasanna Vargas MD; Location: [facility] Labor and Delivery OR Location [...] Friends and Family: Not on file Attends Alev[employer] Services: Not on file Active Member of [...] and flexible sigmoidoscopy tomorrow. JAS BUENROSTRO MD DATA COLLECTION SPECIALIST, DIVISION OF GASTROENTEROLOGY AND HEPATOLOGY [facility]. [facility] 2023-01-12 00:12:43 Associated Order(s): CONSULT GENERAL [...] symptomatic cholelithiasis 1.5 months ago at OSH ([place]). Pt states that she has had persistent RUQ pain with nausea and po intolerance along with intermittent chills and vomiting since surgery. Was seen by PCP and instructed to come to [facility] ED for further evaluation. Review [...] N/A 07/21/2019 Surgeon: Prasanna Vargas MD; Location: [facility] Labor and Delivery OR Location TUBAL LIGATION N/A 07/21/2019 Surgeon: Prasanna Vargas MD; Location: [facility] Labor and Delivery OR Location [...] skin once every month. 1 mL 3 Bwbbkozecn-Koakgvvjjdxud-Rdjv (FIORICET) 50-300-40 mg per capsule Take 1 [...] symptomatic cholelithiasis 1.5 months ago at OSH ([place]). Plan: Admission to [facility] service Consult IR for percutaneous [...] - Replete hypokalemia Mirella Vergara MD, PhD [employer] Trauma, Acute Care Surgery, and Surgical Critical Care In-house Pager: [phone] [facility] - Health History and Physical [...]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 discharged on 02/27/24 with discharge disposition of HR- Routine Discharge. Admitting Physician: Hany Lee Discharge Diagnosis: FINAL DIAGNOSIS: (the reason, after study, for admitting the patient to the hospital) Esophagitis Gastritis Linked Episodes Type: Episode: Status: Noted: Resolved: Last update: Updated by: TRANSITION OF CARE TCM Active 02/27/2024 02/28/2024 9:07 AM Tc Renteria, RN Comments: TCM Ika-zcga-nn-face outreach documentation: Discharge Assessment Chart Assessed: 02/28/24 [...] with the names or descriptions of any oolg-rct-vtitred or supplements you are currently taking?: Yes [...] Phone 03/10/2024 10:00 AM Ca Martinez FNP [facility], [facility] [phone] Tc Renteria RN [facility] 2024-02-27 15:43:07 Addendum created 02/27/24 1543 by Blanca Leavitt CRNA Intraprocedure Meds edited NACR-NURSE BUTTER MELTER,CERTIFIED REGISTERED NURSE BUTTER MELTER [facility] 2024-02-27 12:01:14 Patient: Natanael Dyson Procedure Summary Date: 02/27/24 Room / Location: [place] [address] / ENDOSCOPY (CS) OR LOCATION Anesthesia Start: [...] status: acceptable Hydration status: acceptable AN-ANESTHESIOLOGY ANESTHESIOLOGIST [facility] 2024-02-27 07:19:18 Problem: Pain Goal: Control [...] Outcome: Progressing as expected Sheyla Sharma RN [facility] 2024-02-27 06:29:41 Name/ MRN / Age / Gender: Natanael Dyson, [id number] 29 year old female BMI: Estimated body [...] (physical exam) Anesthesia Preop: Chart Review and Ejkx-ip-Qbwn NPO Status Verified Clear Liquids: > 2 [...] Endocrine/other ROS Negative per Chart Review Other WELDING 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 Chart/ interval hx/ lab data reviewed. NPO status confirmed. Anesthetic plan d/w pt and she understands/ wishes to proceed. Consent obtained. [facility] 2024-02-27 06:15:00 Rec'd report from sheyla CURRIE. Pt AAO, RA, no ISO,denies overnight vomiting, rec'd enema about 0500 and have since been having BMs per RN. Bobbi Du RN [facility] 2024-02-26 13:07:55 Problem: Falls, Risk of [...] Not progressing as expected Tete Louis RN [facility] 2024-02-25 23:57:35 Problem: Pain Goal: Control [...] Outcome: Progressing as expected Cheryl Vásquez RN [facility] 2024-02-25 07:09:28 Problem: Pain Goal: Control [...] nutritional intake Outcome: Progressing as expected T [facility] 2024-02-24 09:16:21 Uploaded to OnBase: [facility] Bobbi vargas, PCP 02/24/2024 9:17 am T Bobbi Saini [facility] 2024-02-24 03:16:43 Problem: Pain Goal: Control of pain at or below patient's documented comfort goal Outcome: Progressing as expected Problem: Falls, Risk of Goal: Absence of falls Outcome: Progressing as expected Problem: Infection Risk Goal: Absence of infection Outcome: Progressing as expected Problem: Discharge Planning Goal: Adequate for discharge Outcome: Progressing as expected T [facility] 2024-02-23 19:02:34 Problem: Pain Goal: Control [...] Outcome: Progressing as expected Sheldon Montague RN [facility] 2024-02-22 22:09:02 Problem: Pain Goal: Control [...] Adequate nutritional intake Outcome: Progressing as expected [facility] 2024-02-22 19:25:41 Pt to [facility] at this time via [facility] transport in stretcher. Patient in possession of all belongings. VSS, Respirations even and unlabored, AAOx4, NAD noted. [facility] Dennise Kirkland RN [facility] 2024-02-22 19:09:18 Patient requesting medication for anxiety. Team paged at this time. [facility] 2024-02-22 19:00:00 Report received from Brent CURRIE. Previous treatment and plan of care discussed. Patient resting in bed. Bed locked and in lowest position. Call light within reach. RR even and unlabored. VSS. A&Ox4. NAD noted. Awaiting transport upstairs. [facility] 2024-02-22 18:32:24 Report given to RN. Patient to be admitted to [facility]. Patient verbalized understanding of plan of care. Patient A&O x4. VSS. NAD noted. Resp even and non labored. Skin warm and dry. IV patent. Belongings to be sent with patient. Awaiting transportation. [facility] Brent Solis RN [facility] 2024-02-22 17:45:00 Pt ambulatory to and from restroom with steady gait in NAD [facility] 2024-02-22 15:45:00 Pt laying in bed meds given per MAR waiting on bed place ment, pt A&Ox4 resp even and unlabored gcs 15 [facility] 2024-02-22 13:45:00 Pt resting comfortably, skin normal warm and dry, resp even and unlabored. VSS. Bed in lowest, locked position, side rails up. Call light within reach. Awaiting results. [facility] 2024-02-22 11:45:00 Pt sitting in bed A&Ox4 , skin normal warm and dry, resp even and unlabored. VSS. Bed in lowest, locked position, side rails up. Call light within reach. Awaiting results. [facility] 2024-02-22 09:45:00 Natanael Dyson is a [...] will continue to monitor. Awaiting further orders. [facility] 2024-02-22 09:31:00 Natanael Dyson is a 29 year old female c/o brayan umbical pain x 1 week. Pain worsening x 4 days. Seen at hospital in [place]. Reports no relief with zofran. Also reports vomiting/diarrhea. Reports blood in stool and emesis. No fever. Denies urinary. Denies . 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 History provided by: Patient telegrapher agent used: No Past Medical History/Immunizations: Past Medical [...] N/A 07/21/2019 Surgeon: Prasanna Vargas MD; Location: [facility] Labor [facility] Delivery OR Location TUBAL LIGATION N/A 07/21/2019 Surgeon: Prasanna Vargas MD; Location: [facility] Delivery OR Location [...] 0.01 - 0.07 10*3/uL COMP. METABOLIC PANEL (07742) - Abnormal NA 137 135 - 145 [...] LIMITED CBC WITH DIFF COMP. METABOLIC PANEL (89501) LIPASE URINALYSIS TROPONIN I TEST, SERUM O2 [...] Observation Condition -- Comment Treatment Team: KORI [[id number]] Discharge Medications: Patient's Medications START taking these medications No medications on file CONTINUE taking these medications which have NOT CHANGED ALBUTEROL 90 MCG/ACTUATION INHALER Inhale 2 Puffs every 6 (six) hours as needed for Wheezing or Shortness of Breath. BACLOFEN 10 MG TABLET Take 1 tablet by mouth every 6 (six) hours as needed. AUIKUAYAJD-SOJTRHJGHLEKL-ZUNY (FIORICET) 50-300-40 MG PER CAPSULE Take 1 [...] medications on file Follow-up: - Admitting to [facility] Electronically signed by: Adriana Piedra MD Internal Medicine PGY-3 [facility] Team Adriana Piedra MD 02/22/24 1425 Associated [...] persistent vomiting noted after. Case discussed with [facility] team. Plan made to admit for intractable vomiting and persistent abd pain. Pt had recent CT and allergic reaction. Will defer repeat CT to primary team if needed as she will need pre-treatment for allergy Diagnosis: Intractable vomiting Abdominal pain Plan: Admit to Internal Medicine Janett Mongerical INTERNAL MEDICINE [facility] 2023-08-27 16:08:07 TRANSITIONAL CARE MANAGEMENT ASSESSMENT 08/27/2023 Natanael Dyson [id number] Natanael Dyson is a 28 year old /White female was admitted on 08/23/23 to [facility], [address] She was discharged on 08/24/23 with [...] for further assistance. No linked episodes TCM Htc-knig-gs-face outreach documentation: Discharge Assessment Chart Assessed: 08/27/23 [...] 9:30 AM ADC MOBILE MRI 1 (1.5T) [facility], [facility] [phone] Marlys Odell LVN [facility] 2023-08-26 13:35:01 TRANSITIONAL CARE MANAGEMENT ASSESSMENT 08/26/2023 Natanael Dyson [id number] Natanael Dyson is a 28 year old /White female was admitted on 08/23/[address] She was discharged on 08/24/23 with discharge disposition of HR- Routine Discharge. Admitting Physician: Roldan Walker Discharge Diagnosis: Cerebrovascular accident (CVA), unspecified mechanism [I63.9] No contact. No linked episodes TCM Oro-oqrq-ml-face outreach documentation: Future Appointments: [facility] 2023-05-19 12:16:00 Pt given printed and [...] with steady gait, in no apparent distress. RAL SERVICES TECH [facility] 2023-05-19 08:50:00 Patient came in with complaints of epigastric pain that radiates to her left shoulder associated with nausea and vomiting since a couple of weeks now. Patient states that she was worked up in [facility] 2 weeks ago and found nothing wrong, just referred to a GI doctor but she hasn't seen one because she has no insurance. NNE Ruiz RN [facility] 2023-01-16 10:56:45 TRANSITIONAL CARE MANAGEMENT ASSESSMENT 01/16/2023 Natanael Dyson [id number] Natanael Dyson is a 27 year old /White female was admitted on 01/11/[address] She was discharged on 01/15/23 with discharge disposition of HR- Routine Discharge. Admitting Physician: Kun Steele Discharge Diagnosis: Postprocedural intraabdominal abscess [T81.43XA] Pt. Verbalized understanding discharge instructions. Plans to f/u with pcp. Linked Episodes Type: Episode: Status: Noted: Resolved: Last update: Updated by: TRANSITION OF CARE tcm Active 01/16/2023 01/16/2023 10:56 AM Marlys Odell LVN Comments: TCM Dgx-dkkq-qt-face outreach documentation: Discharge Assessment Chart Assessed: 01/16/23 [...] with the names or descriptions of any zral-mrt-fnforid or supplements you are currently taking?: Yes [...] time?: No Future Appointments: Marlys Odell LVN [facility] 2023-01-15 18:18:34 Patient is cleared for [...] Vero Crews RN Outcome: Progressing as expected [facility] 2023-01-15 15:08:00 Called outpatient pharmacy and spoke to Maggi. Stated pharmacy will bring patient's medications to her room within 45min to an hour. Vero Crews RN [facility] 2023-01-15 13:11:00 Problem: Infection Risk Goal: Absence of infection Outcome: Progressing as expected Problem: Pain Goal: Control of pain at or below patient's documented comfort goal Outcome: Progressing as expected Goal: Reduction in pain sensation Outcome: Progressing as expected Problem: Discharge Planning Goal: Adequate for discharge Outcome: Progressing as expected Goal: Effective communication Outcome: Progressing as expected T [facility] 2023-01-15 06:25:22 Problem: Infection Risk Goal: Absence of infection Outcome: Progressing as expected Problem: Pain Goal: Control of pain at or below patient's documented comfort goal Outcome: Progressing as expected Goal: Reduction in pain sensation Outcome: Progressing as expected Problem: Discharge Planning Goal: Adequate for discharge Outcome: Progressing as expected Goal: Effective communication Outcome: Progressing as expected Katy Means RN [facility] 2023-01-14 09:27:52 Problem: Infection Risk Goal: Absence of infection Outcome: Progressing as expected Problem: Pain Goal: Control of pain at or below patient's documented comfort goal Outcome: Progressing as expected Goal: Reduction in pain sensation Outcome: Progressing as expected Problem: Discharge Planning Goal: Adequate for discharge Outcome: Progressing as expected Goal: Effective communication Outcome: Progressing as expected Charles Win RN [facility] 2023-01-13 22:20:47 Notified MD by bonny due to double dose of Tylenol being given. Per MD Brito no more Tylenol to be given for tonight. [facility] 2023-01-13 21:55:20 Problem: Infection Risk Goal: Absence of infection Outcome: Progressing as expected Problem: Pain Goal: Control of pain at or below patient's documented comfort goal Outcome: Progressing as expected Goal: Reduction in pain sensation Outcome: Progressing as expected Problem: Discharge Planning Goal: Adequate for discharge Outcome: Progressing as expected Goal: Effective communication Outcome: Progressing as expected [facility] 2023-01-13 08:20:43 Problem: Infection Risk Goal: Absence of infection Outcome: Progressing as expected Problem: Pain Goal: Control of pain at or below patient's documented comfort goal Outcome: Progressing as expected Goal: Reduction in pain sensation Outcome: Progressing as expected Problem: Discharge Planning Goal: Adequate for discharge Outcome: Progressing as expected Goal: Effective communication Outcome: Progressing as expected [facility] 2023-01-12 20:10:08 Problem: Infection Risk Goal: Absence of infection Outcome: Progressing as expected Problem: Pain Goal: Control of pain at or below patient's documented comfort goal Outcome: Progressing as expected Goal: Reduction in pain sensation Outcome: Progressing as expected Problem: Discharge Planning Goal: Adequate for discharge Outcome: Progressing as expected Goal: Effective communication Outcome: Progressing as expected [facility] 2023-01-12 09:28:38 Problem: Infection Risk Goal: Absence of infection Outcome: Progressing as expected Problem: Pain Goal: Control of pain at or below patient's documented comfort goal Outcome: Progressing as expected Goal: Reduction in pain sensation Outcome: Progressing as expected Problem: Discharge Planning Goal: Adequate for discharge Outcome: Progressing as expected Goal: Effective communication Outcome: Progressing as expected [facility] 2023-01-12 05:17:00 Problem: Infection Risk Goal: Absence of infection Outcome: Progressing as expected Problem: Pain Goal: Control of pain at or below patient's documented comfort goal Outcome: Progressing as expected Goal: Reduction in pain sensation Outcome: Progressing as expected Problem: Discharge Planning Goal: Adequate for discharge Outcome: Progressing as expected Goal: Effective communication Outcome: Progressing as expected [facility] 2023-01-12 01:43:06 Report to lisy CURRIE on 9C. Pt awaiting transport T Melvin Villegas RN [facility] 2023-01-12 01:10:30 Attempted report, nurse unavailable, left callback number [facility] 2023-01-12 00:24:49 Surgery at bedside [facility] 2023-01-11 23:08:11 made aware of pt increased pain and nausea [facility] 2023-01-11 22:34:[address], warm blanket given [facility] 2023-01-11 22:18:[address] scan [facility] 2023-01-11 21:30:08 Natanael Dyson is a [...] Denies vomiting, denies blood in stool. T [facility] 2023-01-11 21:03:38 Natanael Dyson is a 27 year old female here today c/o abdominal pain x 2 days. Pt denies N/V but reports diarrhea. Pt reports "9/10" pain at this time. Pt reports pain travels down right side abdomen. Pt is A&Ox4, NAD Noted. RR even/unlabored. 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 Due to the worsening discomfort patient has, for further evaluation at [facility]. Patient states that during her [...] when she sits up. Patient has discontinued [place] and anxiety medication due to concern for her liver. She is only used a heating pad for her symptoms with minimal improvement. History provided by: Patient telegrapher agent used: No Past Medical History/Immunizations: Past Medical [...] N/A 07/21/2019 Surgeon: Prasanna Vargas MD; Location: [facility] Labor [facility] Delivery OR Location TUBAL LIGATION N/A 07/21/2019 Surgeon: Prasanna Vargas MD; Location: [facility] Delivery OR Location [...] 0 - 220 U/L COMP. METABOLIC PANEL (41074) TOTAL BETA HCG ASSAY EXTRA TUBE ORANGE EXTRA TUBE LAV EKG: If EKG completed, see Procedure Note. Orders and Treatments: Orders Placed This Encounter Procedures CT ABDOMEN PELVIS W CONTRAST POCT TEST URINALYSIS LIPASE COMP. METABOLIC PANEL (71399) TOTAL BHCG (QUANTITATIVE) Orders Placed This Encounter [...] mouth every 6 (six) hours as needed. SQZEGMTCHR-MRRVLEPSRPGLA-YCLH (FIORICET) 50-300-40 MG PER CAPSULE Take 1 [...] 7:17 AM CDT After discussion with Dr. Garíca, I examined this patient. I agree with resident's note as written. The patient had CT findings concerning for a possible post-op abscess in the Gallbladder fossa, post-recent cholecystectomy in [place]. General surgery was consulted and admitted the patient for further workup and management. [facility] 2022-12-03 08:57:03 Patient has an appointment 12/12/22. Blayne Silva RN 12/03/2022 8:57 AM Blayne Silva RN [facility]
--- NOTE | 2024-09-19 08:51 | RAD REPORT ---
EXAM: CT brain without contrast HISTORY: Headache COMPARISON: July 2024 TECHNIQUE: Multiple contiguous axial images were obtained and a CT of the brain without contrast.. Sagittal and coronal reconstruction performed. Automated exposure control, adjustment of the mA and/or kV according to patient size, and/or iterative reconstruction. Unless otherwise specified, incidental f indings do not require dedicated imaging follow-up FINDINGS: An intracranial bleed is not seen Ventricles are normal caliber No extra-axial fluid collection noted No significant hypodensity within the brain No fluid within the visualized sinuses or mastoids noted.. Old fracture medial wall right orbit. IMPRESSION: No acute intracranial abnormality noted. If the patient continues to have symptoms to suggest an acute intracranial abnormality then MRI of th e brain would be recommended.
[2024-09-19 08:58] LABS: SARS-CoV-2 Antigen Rapid Res Negative (Negative)
[2024-09-19] MEDS ORDERED: DIPHENHYDRAMINE 50 MG/ML VIAL ONE (09:02)
--- NOTE | 2024-09-19 09:12 | EDPHYS ---
Physician Documentation [facility] Name: Natanael Dyson Age: 29 yrs Sex: Female : 1995 Arrival Date: 09/19/2024 Time: 07:44 Bed 14 Private MD: ED Physician Harjit Samson HPI: 09/19 08:39 This 29 yrs old Female presents to ER via Ambulatory with complaints of Nose Bleed, rn Headache. 08:39 The patient complains of pain to the top of head, forehead and left baptist. Onset: The rn symptoms/episode began/occurred this morning. Severity of symptoms: At its worst the pain was moderate, "similar to past headaches", in the emergency department the pain is unchanged. Patient reports left-sided headache. Began this morning. Woke up in the middle the night with nosebleed. Reports broke her nose 1 to 2 weeks ago and has had intermittent bleeding. Bleeding stopped with pressure. She also noticed left-sided headache. Patient has history of migraines. Patient reports took Tylenol and headache did not go away so came in for evaluation. No fever or chills. No neck stiffness. States was possibly exposed to COVID recently. States last time she got COVID had headache. No focal neurological deficits. No trauma. No vision changes or speech changes.. Historical: - Allergies: 07:54 Compazine; ss 07:54 Haldol; ss 07:54 Iodine; ss 07:54 Morphine; ss 07:54 NSAIDS NON STEROIDAL ANTI INFLAMMATORY DRUG; ss 07:54 Reglan; ss 07:54 Toradol; ss - PMHx: 07:54 Anxiety; breast cancer; depressive disorder; Kidney stone; nephritis; ss - PSHx: 07:54 Cholecystectomy; Ligation of fallopian tube; Tonsillectomy; ss - Immunization history:: Adult Immunizations unknown. - Infectious Disease History:: Denies. - Social history:: Smoking status: Patient denies any tobacco usage or history of. - Family history:: not pertinent. - Hospitalizations: : No recent hospitalization is reported. ROS: 08:39 Constitutional: Negative for fever, chills, and weight loss, Eyes: Negative for injury, rn pain, redness, and discharge, Neck: Negative for injury, pain, and swelling, Cardiovascular: Negative for chest pain, palpitations, and edema, Respiratory: Negative for shortness of breath, cough, wheezing, and pleuritic chest pain, Abdomen/GI: Negative for abdominal pain, diarrhea, and constipation, Back: Negative for injury and pain, MS/Extremity: Negative for injury and deformity, Skin: Negative for injury, rash, and discoloration, Neuro: Positive for headache, negative for focal weakness or numbness Exam: 08:39 Constitutional: This is a well developed, well nourished patient who is awake, alert, rn and in no acute distress. Laying down in dark with blanket over her head. Head/Face: Normocephalic, atraumatic. Eyes: Pupils equal round and reactive to light, extra-ocular motions intact. Lids and lashes normal. Conjunctiva and sclera are non-icteric and not injected. Periorbital areas without swelling ENT: Moist mucous membranes Neck: No meningismus Cardiovascular: Regular rate and rhythm. No pulse deficits. Respiratory: Speaking full sentences, unlabored. Skin: Warm, dry, no rash or lesions MS/ Extremity: Pulses equal, no cyanosis. Neuro: Awake and alert, GCS 15. Cranial nerves II-XII grossly intact. Motor strength 5/5 in all extremities. Sensory grossly intact. Vital Signs: 07:53 Resp 16; Weight 58.97 kg; Height 5 ft. 1 in. ; Pain 8/10; ss 08:01 BP 123 / 93; Pulse 103; Temp 97.7(O); Pulse Ox 99% on R/A; ss 09:07 BP 118 / 87; Pulse 91; Resp 18; Temp 97.9; Pulse Ox 99% on R/A; ph 07:53 Body Mass Index 24.56 (58.97 kg, 154.94 cm) ss 07:53 Pain Scale: Adult ss Giovana Coma Score: 09:10 Eye Response: spontaneous(4). Motor Response: obeys commands(6). Verbal Response: rn oriented(5). Total: 15. MDM: 07:52 Medical Screening Exam initiated rn 09:04 Differential diagnosis: migraine, tension headache, vasomotor headache. rn 09:10 Data reviewed: vital signs, nurses notes, lab test result(s), radiologic studies, CT rn scan, and as a result, I will discharge patient. Counseling: I had a detailed discussion with the patient and/or guardian regarding the historical points, exam findings, and any diagnostic results supporting the discharge/admit diagnosis, lab results, radiology results, the need for outpatient follow up, to return to the emergency department if symptoms worsen or persist or if there are any questions or concerns that arise at home. Response to treatment: the patient's symptoms have mildly improved after treatment, and as a result, I will discharge patient. Special discussion: I discussed with the patient/guardian in detail that at this point there is no indication for admission to the hospital. It is understood, however, that if the symptoms persist or worsen the patient needs to return immediately for re-evaluation. ED course: CT head images without acute findings per my interpretation. No bleeding noted. COVID-negative. Patient is doing better, no longer has head covered, sitting comfortably. Will discharge home with return precautions.. 09/19 08:28 Order name: TATIANA RAPID; Complete Time: 09:03 rn 09/19 08:00 Order name: CT Head Brain wo Cont; Complete Time: 08:53 rn Administered Medications: 08:11 Drug: Ondansetron PO 4 mg PO once Route: PO; ph 09:07 Follow up: Response: No adverse reaction ph 08:11 Drug: Fioricet - Esgic PO 325 mg-40 mg-50 mg 1 tab-caps PO once Route: PO; ph 09:07 Follow up: Response: No adverse reaction ph 08:12 Drug: Gabapentin PO 300 mg PO once Route: PO; ph 09:07 Follow up: Response: No adverse reaction ph 09:06 Drug: diphenhydrAMINE IM 25 mg IM once Route: IM; Site: right deltoid; ph 09:07 Follow up: Response: No adverse reaction ph Disposition Summary: 09/19/24 09:12 Discharge Ordered Notes: Location: Home rn Problem: new rn Symptoms: have improved rn Condition: Stable rn Diagnosis - Headache rn Followup: rn - With: Private Physician - When: As needed - Reason: Recheck today's complaints, Re-evaluation by your physician Discharge Instructions: - Discharge Summary Sheet rn - General Headache Without Cause rn Forms: - Medication Reconciliation Form rn - Antibiotic rn faculty - Prescription Opioid Use rn - Patient Portal Instructions rn - Leadership Thank You Letter rn Prescriptions: - pbzqmivrnv-[id number] 50-325-40 mg Oral capsule - take 1 capsule ORAL route every 6 hours As needed as needed for pain; 15 rn capsule; Refills: 0, Product Selection Permitted Signatures: Dispatcher [employer] EDMS Harjit Samson MD MD rn Blanchard, Shelby, RN RN Viktoriya Carson RN RN ph Corrections: (The following items were deleted from the chart) 08:00 08:00 Head Brain Wo [id number] ordered. EDMS EDMS
--- NOTE | 2024-09-19 09:12 | ER ---
Nurse's Notes [facility] Name: Natanael Dyson Age: 29 yrs Sex: Female : 1995 Arrival Date: 09/19/2024 Time: 07:44 Bed 14 Private MD: Diagnosis: Headache Presentation: 09/19 07:53 Chief complaint: Patient states: Woke up at 2 this morning with a nose bleeding and L ss sided headache. Coronavirus screen: Client denies travel out of the [place] in the last 14 days. Ebola Screen: Patient denies exposure to infectious person. Patient denies travel to an Ebola-affected area in the 21 days before illness onset. Initial Sepsis Screen: Does the patient meet any 2 criteria? No. Patient's initial sepsis screen is negative. Does the patient have a suspected source of infection? No. Patient's initial sepsis screen is negative. Risk Assessment: Do you want to hurt yourself or someone else? Patient reports no desire to harm self or others. Onset of symptoms was September 19, 2024. 07:53 Method Of Arrival: Ambulatory 07:53 Acuity: THIERNO 3 ss Triage Assessment: 09:10 Headache History: The patient has had previous headaches and this one is similar to ph previous episodes. General: Appears in no apparent distress. Pain: Also complains of. Pain: Complains of pain in left jehovah's witness. Historical: - Allergies: 07:54 Compazine; ss 07:54 Haldol; ss 07:54 Iodine; ss 07:54 Morphine; ss 07:54 NSAIDS NON STEROIDAL ANTI INFLAMMATORY DRUG; ss 07:54 Reglan; ss 07:54 Toradol; ss - PMHx: 07:54 Anxiety; breast cancer; depressive disorder; Kidney stone; nephritis; ss - PSHx: 07:54 Cholecystectomy; Ligation of fallopian tube; Tonsillectomy; ss - Immunization history:: Adult Immunizations unknown. - Infectious Disease History:: Denies. - Social history:: Smoking status: Patient denies any tobacco usage or history of. - Family history:: not pertinent. - Hospitalizations: : No recent hospitalization is reported. Screenin:12 [facility] ED Fall Risk Assessment (Adult) History of falling in the last 3 months, ph including since admission No falls in past 3 months (0 pts) Confusion or Disorientation Yes (5 pts) Intoxicated or Sedated No (0 pts) Impaired Gait No (0 pts) Mobility Assist Device Used No (0 pt) Altered Elimination No (0 pt) Score/Fall Risk Level 0 - 2 = Low Risk Oriented to surroundings, Maintained a safe environment, Hourly rounding (assess needs \\T\\ fall precautionary measures) done. Abuse screen: Denies threats or abuse. Denies injuries from another. Nutritional screening: No deficits noted. Tuberculosis screening: No symptoms or risk factors identified. Assessment: 08:12 General: Appears in no apparent distress. Behavior is calm, cooperative. Pain: ph Complains of pain in L side of head. Neuro: Level of Consciousness is awake, alert, obeys commands, Oriented to person, place, time, situation, Reports headache in left parietal area. Cardiovascular: Capillary refill < 3 seconds in bilateral fingers Patient's skin is warm and dry. Respiratory: Airway is patent Respiratory effort is even, unlabored. GI: Reports nausea, Patient currently denies abdominal pain. Derm: Skin is pink, warm \\T\\ dry. 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 Last time I had covid I had a bad headache." ERP notified, see orders. Vital Signs: 07:53 Resp 16; Weight 58.97 kg; Height 5 ft. 1 in. ; Pain 8/10; ss 08:01 BP 123 / 93; Pulse 103; Temp 97.7(O); Pulse Ox 99% on R/A; ss 09:07 BP 118 / 87; Pulse 91; Resp 18; Temp 97.9; Pulse Ox 99% on R/A; ph 07:53 Body Mass Index 24.56 (58.97 kg, 154.94 cm) ss 07:53 Pain Scale: Adult ss Giovana Coma Score: 09:10 Eye Response: spontaneous(4). Motor Response: obeys commands(6). Verbal Response: rn oriented(5). Total: 15. ED Course: 07:49 Patient arrived in ED. cj3 07:51 Viktoriya Jaramillo RN is Primary Nurse. ph 07:52 Harjit Samson MD is Attending Physician. rn 07:54 Triage completed. ss 07:54 Arm band placed on right wrist. ss 08:13 Patient has correct armband on for positive identification. Bed in low position. Call ph light in reach. Side rails up X 1. Pulse ox on. NIBP on. Door closed. Noise minimized. Lights dimmed. Pillow given. 08:23 No provider procedures requiring assistance completed. ph 08:36 COVID swab sent to lab. ph 08:40 CT Head Brain wo Cont In Process Unspecified. EDMS 09:29 Patient did not have IV access during this emergency room visit. ph Administered Medications: 08:11 Drug: Ondansetron PO 4 mg PO once Route: PO; ph 09:07 Follow up: Response: No adverse reaction ph 08:11 Drug: Fioricet - Esgic PO 325 mg-40 mg-50 mg 1 tab-caps PO once Route: PO; ph 09:07 Follow up: Response: No adverse reaction ph 08:12 Drug: Gabapentin PO 300 mg PO once Route: PO; ph 09:07 Follow up: Response: No adverse reaction ph 09:06 Drug: diphenhydrAMINE IM 25 mg IM once Route: IM; Site: right deltoid; ph 09:07 Follow up: Response: No adverse reaction ph Medication: 08:13 VIS not applicable for this client. ph Outcome: 09:12 Discharge ordered by . rn 09:29 Discharged to home ambulatory, ph 09:29 Condition: good 09:29 Discharge instructions given to patient, Instructed on discharge instructions, follow up and referral plans. medication usage, Demonstrated understanding of instructions, follow-up care, medications, Prescriptions given X 1, 09:30 Patient left the ED. ph Signatures: Dispatcher [employer] EDCA Harjit Samson MD MD rn Blanchard, Shelby, RN RN ss Hall, Patricia, RN RN ph Johnson, Celeste 3
[2024-09-19 09:36] VITALS: O2SAT 99
[2024-09-19 09:37] VITALS: BP 118/87; TEMP 97.9
== END 2024-09-19 09:30 | disposition home or self-care (01) ==
LOC: ER 07:44
DX: R51.9 Headache, unspecified (principal); Z11.52 Encounter for screening for COVID-19
CPT/HCPCS: 36415; 70450; 96372; 99284; 87426; Q0162; J1200

== ENCOUNTER 2024-12-17 06:33 | Emergency (ER) | payer OTHER ==
--- OUTSIDE RECORDS SUMMARY | 2024-12-17 07:02 | XMS REPORT | Continuity of Care Document ---
Author Name Unknown Address [address] [facility]. [address] [place] [address] Organization [facility] [place] Address [address] [facility] [address] [place] [address] Care Team Providers Care Pulley Mortiser Operator Name Role Phone TY AMADO JR Primary Care Physician Tiara Contreras Attending Clinician Unavail able LEONELA VELOZ Attending Clinician UnaLEONELA Cameron Attending Clinician UnaLeonela Cameron MD Attending Clinician + ALEKSANDR STEWART Attending Clinician Unavailable ALEKSANDR STEWART Attending Clinician Unavailable Aleksandr Stewart MD Attending Clinician [phone] Doctor Unassigned, Duck Key Attending Clinician U Palak Leonardo LVN Attending Clinician UnavailANAMARIA Jules Attending Clinician Unavailable ANAMARIA GONZALES Attending Clinician Unavailable Anamaria Gonzales MD Attending Clinician +[phone] ROSENDO LEVY Attending Clinician Unavailable ROSENDO LEVY Attending Clinician Unavailable Rosendo Levy MD Attending Clinician +[phone] ARAM PARADA Attending Clinician Unavailable Aarm Parada MD Attending Clinician +[phone] MAGGIE HAMILTON Attending Clinician Unavailab MAGGIE Luna Attending Clinician UnavailOlamide Henderson NP Attending Clinician +[phone] Maggie Hamilton DO Attending Clinician +[phone] TAJ DE PAZ Attending Clinician UnavailTAJ Lewis Attending Clinician Unavailravindra Parra MD, Alfredo Attending Clinician + [phone] Erica-Ba Edmond DO Attending Clinician + [phone] Jose Mandujano MD Attending Clinician +[phone] Louise FELIX, Lobo Amaral Attending Clinician +[phone] Taj De Paz MD Attending Clinician +[phone] Jose R KENNY, Marlys Attending Clinician +[phone] JOSE MANDUJANO Attending Clinician Unavailable JOSE MANDUJANO Attending Clinician Unavailable Wanda FELIX, Jesus Attending Clinician + [phone] Chitra FELIX, Jas Attending Clinician +[phone] Rajiv GANNON, Giselle Attending Clinician + [phone] Dexter CURRIE, Tc Cannon Attending Clinician Unavail able HANY LEE Attending Clinician Unavailable Colin Jones DO Attending Clinician Hany Lee MD Attending Clinician + [phone] Shanell Mata MD, Peter Attending Clinician +[phone] Naty Buenrostro DO Attending Clinician +[phone] ROLDAN WALKER Attending Clinician Unavailable Odell LVN, Marlys Attending Clinician +[phone] TOD AGUILAR Attending Clinician Unavailab Prasanna Styles MD Attending Clinician +[phone] KUN STEELE Attending Clinician Unavailable Miguel Ángel Siddiqui DO Attending Clinician +[phone] Mirella Vergara MD Attending Clinician +[phone] Kun Steele MD Attending Clinician [phone] PRASANNA VARGAS Attending Clinician Unavailable MANJU NEWELL Attending Clinician Unavaila Oc Best DO Attending Clinician + [phone] Manju Giraldo Attending Clinician + [phone] JEREMY GREENE Attending Clinician Unavailable JEREMY GREENE Attending Clinician Unavailable CA MARTINEZ Attending Clinician Unavailable REJI GARCIA Attending Clinician Unavailable Carina FELIX, Roldan Attending Clinician +[phone] DESIREE FINNEY Attending Clinician Bridget jesse Serra MD, Rad KPilarHPilar Attending Clinician + [phone] LEXY KASSANDRA Attending Clinician Unavailable KENNEDY HUTCHINS Attending Clinician Unavailable Liset EDUCATION OFFICER, Cynleonid Attending Clinician +[phone] Doctor Unassigned, Duck Key Attending Clinician U BEBA Garcia Attending Clinician Unavailab lisandro Leanne EDUCATION OFFICER, Beba Farmer Attending Clinician + [phone] Unknown, Attending Attending Clinician Unavailab PAUL Wilkinson Attending Clinician Unavailabl ignacio Samayoa EDUCATION OFFICER, Paul Attending Clinician +[phone] BENNETT MILLER Attending Clinician Unavailable KARON NORTON Attending Clinician Unavailable Errol EDUCATION OFFICER, Karon Attending Clinician + [phone] OC BRIDGES Attending Clinician Unavailable Darrion Armstrong MD Attending Clinician +[phone] OLAMIDE GARVIN Attending Clinician Unavailable Olamide Garvin NP Attending Clinician +[phone] KELLIE PIPER Attending Clinician Unavailable Kellie Piper MD Attending Clinician +[phone] Radha FELIX, Reji Attending Clinician +[phone] LYDIA COLMENARES Attending Clinician Unavailab Lydia Guerrero DO Attending Clinician +[phone] ANGELICA VIVEROS Attending Clinician Unavailable Felice EDUCATION OFFICER, Angelica Attending Clinician +[phone] DARRION ARMSTRONG Attending Clinician Unavail able DARRION ARMSTRONG Attending Clinician Unavail able Ca Teran Attending Clinician [phone] Kendal Zamudio LVN Attending Clinician Unarush Valencia MD, Santiago Chen Attending Clinician + [phone] Ross Anand Attending Clinician Unava ilCRICKET Edge Attending Clinician Unavail able Nurse, Ang Db [facility] Attending Clinician Un available Willie Medrano MD Attending Clinician +[phone] WILLIE MEDRANO Attending Clinician Unavailable FLACO BOYD Attending Clinician UnavailJuan Corley MD Attending Clinician +[phone] MAURA COX Attending Clinician Unavailabl Larry Tristan Attending Clinician +[phone] Maura Cox MD Attending Clinician +[phone] HUMBERTO OCHOA Attending Clinician Unavailable Humberto Ochoa MD Attending Clinician +[phone] TETO CARNES Attending Clinician Unavailable Teto Carnes PA-C Attending Clinician +[phone] SANTIAGO VALENCIA Attending Clinician Unavailab ROMULO Santos Attending Clinician Unavai filipe Taylor [facility] Attending Clinician + Kaycee MÉNDEZ Attending Clinician Unavailable Kaycee Soares Attending Clinician +[phone] Leslie Santacruz RN Attending Clinician Unavailable Flaco Katz Attending Clinician +[phone] DESIREE OMHR Attending Clinician Unavailravindra Flynn, Filippo [facility] Attending Clinician Unavailable Melia Rodriguez MA Attending Clinician UnavailDesiree Salguero MD Attending Clinician +[phone] DANIA PENNINGTON Attending Clinician UnavailTaj De Santiago MD Attending Clinician + [phone] Harsh Charles DO Attending Clinician +[phone] Dania Pennington MD Attending Clinician +[phone] Hallie Wilkinson RN Attending Clinician UnavailAdán Perez Attending Clinician +[phone] ADÁN KIM Attending Clinician Unavailable Lab, Ang - Db Attending Clinician Unavailable PETRA RENO Attending Clinician Unavailable Juan Diaz MD Attending Clinician +[phone] JUAN DIAZ Attending Clinician Unavailable CLAUDETTE EVANS Attending Clinician Unavaila Skylar Padron Attending Clinician +[phone] SKYLAR GROVES Attending Clinician Unavailable Claudette Evans MD Attending Clinician [phone] JE ARANA Attending Clinician Unavailable Only, Ang Db Test Attending Clinician UnavailThony Cook Attending Clinician +[phone] EBTHONY SALAZAR Attending Clinician Unavailable SCOTT GILBERT Attending Clinician Unavailable PINO HOFF Attending Clinician Unavailable ADITYA MEEKS Attending Clinician Unavaila ADITYA Trammell Attending Clinician Unavaila AMELIA Murcia Attending Clinician Unavailable RAD SERRA Attending Clinician Unavaila KAYLEY Sims Attending Clinician Unavailable Venkat CURRIE, Kassandra Jones Attending Clinician Unavaila Hany Hoffman Attending Clinician + [phone] Alissa Rosales Attending Clinician +[phone] Lydia Kim MD Attending Clinician +[phone] PREET SHAY Attending Clinician Unavailable NI DISLA Attending Clinician Unavailable OSITO SANTIAGO Attending Clinician Unavailable RODRIGUEZ HOFF Attending Clinician Un available ROSALES SHAY Attending Clinician Unavailable Osito Santiago MD Attending Clinician Unavailable Scott Gilbert MD Attending Clinician +[phone] MARICRUZ DELUNA Attending Clinician Unavailable SARAHI AVILA Attending Clinician Unavailable ROSANA HUBER Admitting Clinician Unavail able PRASANNA VARGAS Admitting Clinician Unavailable LEONELA VELOZ Admitting Clinician Unav ailable ALEKSANDR STEWART Admitting Clinician Unavailable ANAMARIA GONZALES Admitting Clinician Unavailable ROSNEDO LEVY Admitting Clinician Unavailable TAJ DE PAZ Admitting Clinician UnavailTaj Lewis MD Admitting Clinician +[phone] JOSE MANDUJANO Admitting Clinician Unavailable Jose Mandujano MD Admitting Clinician +[phone] HANY LEE Admitting Clinician Unavailable Hany Lee MD Admitting Clinician +[phone] ROLDAN WALKER Admitting Clinician Unavailable TOD AGUILAR Admitting Clinician Unavailab KUN Louis Admitting Clinician Unavailable Kun Steele MD Admitting Clinician [phone] OC BRIDGES Admitting Clinician Unavailable LYDIA COLMENARES Admitting Clinician Unavailab MAGGIE Luna Admitting Clinician Unavailab ROESNDO Garcia Admitting Clinician Unavailable MAURA COX Admitting Clinician UnavailHUMBERTO Oreilly Admitting Clinician Unavailable KARON NORTON Admitting Clinician Unavailable Kaycee MÉNDEZ Admitting Clinician Unavailable OLAMIDE GARVIN Admitting Clinician Unavailable RODRIGUEZ HOFF Admitting Clinician Un available MARICRUZ DELUNA Admitting Clinician Unavailable Payers Payer Name Policy Type Policy Number Effective Date Expirati on Date Source [facility] [employer] [id number] 2019 00:00:00 [employer] II [id number] 2023 00:00:00 [facility] [place] [facility] [id number] 2024 00:00:00 2024 00:00:00 Problems Condition Name Condition Details Condition Category Status Onset Date Resolution Date Last Treatment Date Treating Clinician Comments Source Epigastric pain Epigastric pain Disease Active 2023-05 0-29 00:00: 00 [facility] Nausea and vomiting, unspecifie d vomiting type Nausea and vomiting, unspecifie d vomiting type Disease Active 2023-05 0-23 00:00: 00 [facility] 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 on Disease Active 2023-05 0-14 00:00: 00 [facility] Vomiting and diarrhea Vomiting and diarrhea Disease Active 2023-05 0-12 00:00: 00 [facility] Cerebrovas cular accident (CVA), 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), unspecifie d mechanism Disease Active 4-12 00:00: 00 [facility] Postproced ural intraabdom inal abscess Postproced ural intraabdom inal abscess Disease Active 2023-0 9-02 00:00: 00 [facility] Abdominal pain, unspecifie d abdominal location Abdominal pain, unspecifie d abdominal location Disease Active 0 9-02 00:00: 00 [facility] Influenza vaccine [...] 2021-05 0-18 00:00: 00 [facility] Influenza vaccine needed Influenza vaccine needed Disease Active 2021-05 0-18 00:00: 00 [facility] Breast pain in female Breast pain in female Disease Active 8-07 00:00: 00 [facility] Anxiety disorder, [...] Active 4-27 00:00: 00 [facility] Trouble in sleeping Trouble in sleeping Disease Active 4-27 00:00: 00 [facility] Tachycardi a Tachycardi a Disease Active 2019-05 2- 00:00: 00 [facility] Visual changes Visual changes Disease Resolve d 2019-05 2-26 00:00: 00 2020-09-06 00:00:00 2020-09-06 16:27:31 [facility] Headache Headache Disease Resolve d 2019-05 2-19 00:00: 00 2020-09-06 00:00:00 2020-09-06 16:27:31 [facility] Sinus tachycardi a Sinus tachycardi a Disease Resolve d 2019-05 2-02 00:00: 00 2020-09-06 00:00:00 2020-09-06 16:27:34 [facility] Insomnia, unspecifie d type Insomnia, unspecifie d type Disease Resolve d 8-25 00:00: 00 2020-09-06 00:00:00 2020-09-06 16:27:43 [facility] Cervical Papanicola ou smear negative within last 12 months Cervical Papanicola ou smear negative within last 12 months Disease Resolve d 2-07 00:00: 00 2020-05-24 00:00:00 2021-11-26 00:58:00 [facility] Other general counseling and advice for contracept bonifacio management Other general counseling and advice for contracept bonifacio management Disease Resolve d 2019-0 4-22 00:00: 00 2020-01-05 00:00:00 2020-01-05 17:38:00 [facility] Routine follow-up Routine follow-up Disease Resolve d 2019-0 4-02 00:00: 00 2020-01-05 00:00:00 2020-01-05 17:37:57 [facility] Back pain Back pain Disease Resolve d 2019-0 4-02 00:00: 00 2020-01-05 00:00:00 2020-01-05 17:37:59 [facility] History of tubal ligation History of tubal ligation Disease Resolve d 2018- 2-27 00:00: 00 2020-01-05 00:00:00 2020-01-05 17:37:56 [facility] Anxiety during in second trimester, antepartum Anxiety during in second trimester, antepartum Disease Resolve d 2018- 2-05 00:00: 00 2020-01-05 00:00:00 2020-01-05 17:37:53 [facility] Asthma affecting in third trimester Asthma affecting in third trimester Disease Resolve d 2018- 2-05 00:00: 00 2020-01-05 00:00:00 2020-01-05 17:37:54 [facility] Anxiety during in second trimester, antepartum Anxiety during in second trimester, antepartum Disease Resolve d 2018- 2-05 00:00: 00 2020-01-05 00:00:00 2020-01-05 17:37:53 [facility] Liveborn , of morel , born in hospital by delivery Liveborn infant, of morel , born in hospital by delivery Disease Resolve d 2019-0 3-12 00:00: 00 2019-08-13 00:00:00 2019-08-13 11:34:07 [facility] Normal labor Normal labor Disease Resolve d 2019-0 3-10 00:00: 00 2019-08-13 00:00:00 2019-08-13 11:34:03 [facility] 37 weeks gestation of 37 weeks gestation of Disease Resolve d 2019-0 1-02 00:00: 00 2019-08-13 00:00:00 2019-08-13 11:51:42 [facility] Gastroesop hageal reflux in Gastroesop hageal reflux in Disease Resolve d 2018-1 2-27 00:00: 00 2019-08-13 00:00:00 2019-08-13 11:33:48 [facility] Supervisio n of high risk in third trimester Supervisio n of high risk in third trimester Disease Resolve d 2018-0 9-27 00:00: 00 2019-08-13 00:00:00 2019-08-13 11:32:56 [facility] Multiparit y Multiparit y Disease Resolve d 2018-0 9-27 00:00: 00 2019-08-13 00:00:00 2019-08-13 11:33:04 [facility] History of delivery History of delivery Disease Resolve d 2018-0 9-27 00:00: 00 2019-08-13 00:00:00 2019-08-13 11:33:12 [facility] History of section History of section Disease Resolve d 2018-0 9-27 00:00: 00 2019-08-13 00:00:00 2019-08-13 11:33:20 [facility] History of History of Disease Resolve d 2018-0 9-27 00:00: 00 2019-08-13 00:00:00 2019-08-13 11:33:21 [facility] IUGR (intrauter ine growth restrictio n) affecting care of mother, third trimester, fetus 1 IUGR (intrauter ine growth restrictio n) affecting care of mother, third trimester, fetus 1 Disease Resolve d 2019-0 2-11 00:00: 00 2019-07-21 00:00:00 2019-07-21 07:42:45 [facility] Body aches Body aches Disease Resolve d 2019-0 2-11 00:00: 00 2019-07-21 00:00:00 2019-07-21 07:41:46 [facility] Upper respirator y tract infection, unspecifie d type Upper respirator y tract infection, unspecifie d type Disease Resolve d 2019-0 2-11 00:00: 00 2019-07-21 00:00:00 2019-07-21 07:43:06 [facility] Pain of round ligament during Pain of round ligament during Disease Resolve d 2019-0 1-23 00:00: 00 2019-07-21 00:00:00 2019-07-21 07:42:49 [facility] Previous delivery affecting , antepartum Previous delivery affecting , antepartum Disease Resolve d 2019-0 1-19 00:00: 00 2019-07-21 00:00:00 2019-07-21 07:42:55 [facility] uterine contractio ns uterine contractio ns Disease Resolve d 1-18 00:00: 00 2019-07-21 00:00:00 2019-07-21 07:42:50 [facility] Threatened labor, third trimester Threatened labor, third trimester Disease Resolve d 1-16 00:00: 00 2019-07-21 00:00:00 2019-07-21 07:43:02 [facility] BV (bacterial vaginosis) BV (bacterial vaginosis) Disease Resolve d 1-02 00:00: 2019-07-21 00:00:00 2019-07-21 07:41:44 [facility] Anemia of mother in , antepartum Anemia of mother in , antepartum Disease Resolve d 2018- 2-30 00:00: 00 2019-07-21 00:00:00 2019-07-21 07:41:35 [facility] 39 weeks gestation of 39 weeks gestation of Disease Resolve d 2019-0 1-17 00:00: 00 2019-05-30 00:00:00 2019-05-30 15:44:45 [facility] uterine contractio ns in second trimester, antepartum uterine contractio ns in second trimester, antepartum Disease Resolve d 2019-0 1-02 00:00: 00 2019-05-28 00:00:00 2019-05-28 23:15:02 [facility] Candidiasi s of vulva and vagina Candidiasi s of vulva and vagina Disease Resolve d 2018-1 1-18 00:00: 00 2019-05-28 00:00:00 2019-05-28 23:14:52 [facility] Allergies, Adverse Reactions, Alerts Allergy Name Allergy Type Status Severity Reaction(s) Onset Date Inactive Date Treating Clinician Comments Source MORPHINE DRUG INGREDI Active Hives 2023-05 2- 00:00: 00 [facility] Morphine Propensi ty to adverse reaction s Active Hives 2023-05 2- 00:00: 00 [facility] IODINE DRUG INGREDI Active High Hives 1 0-12 00:00: 00 [facility] Iodine Propensi ty to adverse reaction s Active Anaphylaxis 2023-05 0-12 00:00: 00 Lip swelling, hives [facility] Iodine Drug Allergy Active Unknown - See comments 2023-05 0-12 00:00: 00 Lip swelling, hives Reaction after being premedica renata [facility] NSAIDS (NON-JAE ROIDAL ANTI-INF LAMMATOR Y DRUG) Drug Class Active High Hives 0 4-12 00:00: 00 [facility] PROCHLOR PERAZINE DRUG INGREDI Active Hives 0 4-12 00:00: 00 [facility] HALOPERI DOL LACTATE DRUG INGREDI Active Hives 0 4-12 00:00: 00 [facility] LATEX DRUG INGREDI Active ITCHING 0 4-12 00:00: 00 [facility] METOCLOP RAMIDE DRUG INGREDI Active Other-Cmnt 0 4-12 00:00: 00 [facility] Prochlor [...] 4- 00:00: 00 Agitated [facility] Nsaids (Non-Jae roidal Anti-Inf lammator y Drug) Propensi ty to adverse reaction s Active Shortness of Breath 0 4-12 00:00: 00 [facility] KETOROLA C DRUG INGREDI Active Hives 0 9- 00:00: 00 [facility] HALOPERI DOL DRUG INGREDI Active Other-Cmnt 0 9 00:00: 00 [facility] Haloperi dol [...] s Active Anxiety 2021-0 8-29 00:00: 00 [facility] Metoclop ramide Propensi ty to adverse reaction s to drug Active Anxiety 2-0 8-29 00:00: 00 [facility] Prochlor perazine Propensi ty to adverse reaction s to drug Active Hives 0 1-17 00:00: 00 Tolerates promethaz ine [facility] PROCHLOR PERAZINE DRUG INGREDI Active Med Hives 2020-0 1-17 00:00: 00 [facility] Latex Propensi ty to adverse reaction s Active Rash 2019-1 2-02 00:00: 00 [facility] LATEX DRUG INGREDI Active Low Rash 2020-1 2-02 00:00: 00 [facility] Metoclop ramide Hcl Propensi ty to adverse reaction s to drug Active Anxiety 2019-0 3- 00:00: 00 Patient says she gets figity, angry and mean [facility] METOCLOP RAMIDE HCL DRUG INGREDI Active Low Anxiety 07-11 00:00: 00 [facility] Family History Family Member Diagnosis Comments Start Date Stop Date Sourc e Natural brother Asthma [facility] Maternal grandfather Diabetes [facility] Maternal grandfather Heart [facility] Maternal grandfather Neurological [facility] Maternal grandmother Breast Cancer [facility] Maternal grandmother Cancer [facility] Maternal grandmother Heart [facility] Maternal grandmother Neurological [facility] Maternal grandmother Ovarian Cancer [facility] Natural mother Cancer [facility] Natural mother [facility] Natural mother [facility] Natural [facility] Paternal grandmother Cancer [facility] Paternal grandmother Heart [facility] Paternal grandmother Ovarian Cancer [facility] Natural sister [facility] Social History Social Habit Start Date Stop Date Quantity Comments Source History SDOH Alcohol Std Drinks [facility] History SDOH Alcohol Binge [facility] History SDOH Alcohol Comment [place] [facility] Gender identity [facility] Alcoholic beverage intake 2024-04-12 00:00:00 2024-04-12 00:00:00 Ex-drinker (finding) [facility] Alcohol intake 2023-08-26 00:00:00 2023-08-26 00:00:00 Ex-drinker (finding) [facility] Tobacco use and exposure 2023-08-23 00:00:00 2023-08-23 00:00:00 Smokeless tobacco non-user [facility] Education 2023-08-23 00:00:00 2023-08-23 00:00:00 11 [facility] Exposure to SARS-CoV-2 (event) 2022-08-26 00:00:00 2022-09-05 09:28:00 Not sure [facility] History of Social function 2021-07-17 00:00:00 2021-07-17 00:00:00 [facility] History SDOH Alcohol Frequency 2019-02-06 00:00:00 2019-02-06 00:00:00 1 [facility] Sex assigned at 1995 00:00:00 1995 00:00:00 [facility] Smoking Status Start Date Stop [...] mL, IV Infusion, ONCE, 1 dose, On 08/16/24 at 0845, STAT [facility] FENTanyl (PF) (SUBLIMAZE) injection 50 mcg 08-16 13:45: 00 08-16 13:37 :00 No 50ug 50 mcg, Slow IV Push, ONCE, 1 dose, On Sat08/16/24 at 0845, STAT [facility] ondansetron (ZOFRAN (PF)) injection 4 mg 08-16 13:15: 00 08-16 13:38 :00 No 4mg 4 mg, Slow IV Push, ONCE, 1 dose, On Sat08/16/24 at 0815, Administer over 2-5 Minutes, 2 mL [facility] cefdinir 300 mg capsule 08-16 00:00: 00 08-27 04:59 :00 No [id number] 300mg Take 1 capsule by mouth every 12 (twelve) hours for 10 days. [facility] HYDROcodone -acetaminop hen (NORCO 5) tablet 1 tablet 08-02 15:45: 00 08-02 15:40 :00 No 1{tbl} 1 tablet, Oral, ONCE, 1 dose, On 08/02/24 at 1045, [place] [facility] NaCl 0.9% (NS) bolus infusion 1,000 mL 05-19 22:45: 00 05-19 22:16 :00 No 1000mL at 999 mL/hr, 1,000 mL, IV Infusion, ONCE, 1 dose, On Sat05/19/24 at 1645, [facility] methylpredn isolone sod succ (SOLU-MEDRO L) injection 125 mg 05-19 21:30: 00 05-19 20:34 :00 No 125mg 125 mg, Intramuscu lar, ONCE NOW, 1 dose, On Sat05/19/24 at 1530, [facility] diphenhydrA MINE (BENADRYL) tablet 25 mg 05-19 20:30: 00 05-19 20:33 :00 No 25mg 25 mg, Oral, ONCE, 1 dose, On Sat05/19/24 at 1430, [facility] pantoprazol e (PROTONIX) injection 40 mg 05-19 20:00: 00 05-19 19:55 :00 No 40mg 40 mg, Slow IV Push, ONCE, 1 dose, On Sat05/19/24 at 1400 [facility] maalox/diph enhydrAMINE :lidocaine2 %viscous 1:1:1: suspension (COMPOUNDED ) 05-19 19:15: 00 05-19 19:54 :00 No 15mL 15 mL, Oral, ONCE, 1 dose, On Sat05/19/24 at 1315, [facility] diphenhydrA MINE (BENADRYL) injection 50 mg 2023-05 15:00: 00 04-19 14:52 :00 No 50mg 50 mg, Slow IV Push, ONCE, 1 dose, On Sat04/19/24 at 0900, [facility] NaCl 0.9% (NS) bolus infusion 1,000 mL 2023-05 14:15: 00 04-19 15:52 :00 No 1000mL at 999 mL/hr, 1,000 mL, IV Infusion, ONCE, 1 dose, On 04/19/24 at 0815, STAT [facility] ondansetron (ZOFRAN (PF)) injection 4 mg 2023-05 14:15: 00 04-19 14:35 :00 No 4mg 4 mg, Slow IV Push, ONCE, 1 dose, On 04/19/24 at 0815, Administer over 2-5 Minutes, 2 mL [facility] morpHINE (4 mg/mL) injection 4 mg 2023-05 14:15: 00 04-19 14:33 :00 No 4mg 4 mg, Slow IV Push, ONCE, 1 dose, On 04/19/24 at 0815, STAT [facility] traMADoL 50 mg tablet 2023-05 00:00: 00 04-27 05:59 :00 No [id number] 50mg Take 1 tablet by mouth every 8 (eight) hours as needed for Pain (scale 7-10) for up to 7 days. Indication s: acute pain [facility] polyethylen e glycol 3350 (MIRALAX) 17 gram powder 2023-05 00:00: 00 04-23 05:59 :00 No [id number] 1{packe t} Take 1 Packet by mouth in the morning and 1 Packet in the evening. Do all this for 3 days. [facility] morpHINE injection 2 mg 2023-05 20:00: 00 04-12 19:17 :00 No 2mg 2 mg, Slow IV Push, ONCE, 1 dose, On 04/12/24 at 1400, STAT [facility] acetaminoph en (OFIRMEV) IV piggyback 1,000 mg 2023-05 19:03: 00 04-12 19:31 :00 No 1000mg 1,000 mg, IV Piggyback, at 400 mL/hr Administer over 15 Minutes, ONCE, 1 dose, On 04/12/24 at 1315, Routine, Is the patient strict NPO and unable to tolerate oral medication s? Yes [facility] morpHINE injection 2 mg 2023-05 19:00: 00 04-12 18:09 :00 No 2mg 2 mg, Slow IV Push, ONCE, 1 dose, On Sat04/12/24 at 1300, STAT [facility] fentanyl PF (SUBLIMAZE (PF)) injection 50 mcg 2023-05 16:30: 00 04-12 16:26 :00 No 50ug 50 mcg, Slow IV Push, ONCE, 1 dose, On Sat04/12/24 at 1030, Routine [facility] fentanyl PF (SUBLIMAZE (PF)) injection 50 mcg 2023-05 15:45: 00 04-12 15:42 :00 No 50ug 50 mcg, Slow IV Push, ONCE, 1 dose, On Sat04/12/24 at 0945, Routine [facility] diphenhydrA MINE (BENADRYL) injection 25 mg 2023-05 14:18: 10 03-13 16:08 :09 No 25mg 25 mg, Intravenou s, Q6HPRN, Starting on Sat03/13/24 at 0918, Until Sat03/13/24 at 1108, Routine, Pain (scale 7-10) [facility] diazePAM (VALIUM) 10 mg tablet 2023-05 11:08: 09 Yes 10mg Take 1 tablet by mouth in the morning and 1 tablet in the evening. [facility] acetaminoph en (OFIRMEV) IV piggyback 1,000 mg 2023-05 07:15: 00 03-13 07:05 :00 No 1000mg 1,000 mg, IV Piggyback, at 400 mL/hr Administer over 15 Minutes, ONCE, 1 dose, On Sat03/13/24 at 0215, Routine, Is the patient strict NPO and unable to tolerate oral medication s? Yes [facility] methylpredn isolone sod succ (SOLU-MEDRO L) injection 44.375 mg 2023-05 04:15: 00 03-13 05:06 :00 No 1mg/kg 44.375 mg (rounded from 44.5 mg = 1 mg/kg ?44.5 kg), Intravenou s, ONCE, 1 dose, On Sat03/12/24 at 2315, 2 mL [facility] iopamidol (ISOVUE 370-500 mL) injection 80 mL 2023-05 03:16: 00 03-13 03:00 :00 No [id number] 80mL 80 mL, Intravenou s, ONCE, 1 dose, On Sat03/12/24 at 2230, Routine [facility] diphenhydrA MINE (BENADRYL) injection 100 mg 2023-05 03:00: 00 03-13 05:06 :00 No [id number] 100mg 100 mg, Slow IV Push, ONCE, 1 dose, On Sat03/12/24 at 2200, STAT [facility] budesonide (PULMICORT RESPULE) nebulizer solution 1 mg 2023-05 01:00: 00 Yes 1mg 1 mg, Inhalation , BID, First dose on Kathie 03/12/24 at 2000, Until Discontinu ed, Routine [facility] amitriptyli ne 25 mg tablet 2023-05 00:00: 00 Yes [id number] 25mg Take 1 tablet by mouth at bedtime. [facility] budesonide 0.5 mg/2 mL nebulizer solution 2023-05 00:00: 00 06-06 05:59 :00 No [id number] 1mg Inhale 4 mL in the morning and 4 mL in the evening. Do all this for 84 days. [facility] diphenhydrA MINE 25 mg tablet 2023-05 00:00: 00 03-21 05:59 :00 No [id number] 25mg Take 1 tablet by mouth every 6 (six) hours as needed for Allergies for up to 7 days. [facility] methylPREDN ISolone sod succ (SOLU-MEDRO L (PF)) injection 40 mg 2023-05 23:45: 00 03-13 01:24 :00 No 40mg 40 mg, Intravenou s, ONCE, 1 dose, On Kathie 03/12/24 at 1845, 1 mL [facility] diphenhydrA MINE (BENADRYL) injection 50 mg 2023-05 23:45: 00 03-13 01:23 :00 No 50mg 50 mg, Intravenou s, ONCE, 1 dose, On Sat03/12/24 at 1845, Routine [facility] methylPREDN ISolone sod succ (SOLU-MEDRO L (PF)) injection 40 mg 2023-05 20:45: 00 03-12 20:53 :00 No 40mg 40 mg, Intravenou s, ONCE, 1 dose, On Sat03/12/24 at 1545, 1 mL [facility] diphenhydrA MINE (BENADRYL) injection 25 mg 2023-05 20:30: 00 03-12 20:58 :00 No 25mg 25 mg, Intravenou s, ONCE, 1 dose, On Sat03/12/24 at 1545, Routine [facility] diphenhydrA MINE (BENADRYL) injection 25 mg 2023-05 16:30: 00 03-12 16:16 :00 No 25mg 25 mg, Intravenou s, ONCE, 1 dose, On Sat03/12/24 at 1130, Routine [facility] diazePAM (VALIUM) injection 2 mg 2023-05 15:45: 00 03-13 13:38 :00 No 2mg 2 mg, Slow IV Push, BID, First dose on Sat03/12/24 at 1045, Until Discontinu ed, Routine [facility] Potassium Bicarb-Citr ic Acid (EFFER-K) effervescen t tablet 40 mEq 2023-05 03:45: 00 03-12 03:18 :00 No 40meq 40 mEq, Oral, ONCE, 1 dose, On Sat03/11/24 at 2245, Routine [facility] amitriptyli ne (ELAVIL) tablet 25 mg 2023-05 02:00: 00 Yes 25mg 25 mg, Oral, QHS, First dose on Sat03/11/24 at 2100, Until Discontinu ed, Routine [facility] budesonide (PULMICORT RESPULE) nebulizer solution 0.25 mg 2023-05 20:30: 00 03-12 15:40 :27 No .25mg 0.25 mg, Inhalation , BID, First dose (after last modificati on) on Sat03/11/24 at 1530, Until Discontinu ed, [facility] 2 mg 2023-05 18:00: 00 03-11 18:18 :00 No 2mg 2 mg, Slow IV Push, ONCE, 1 dose, On Sat03/11/24 at 1300, Routine [facility] proMETHazin e (PHENERGAN) 12.5 mg in NS 50 mL IV piggyback (CNR) 2023-05 16:08: 36 03-13 06:15 :30 No 12.5mg 12.5 mg, IV Piggyback, at 200 mL/hr Administer over 15 Minutes, Q4HPRN, Starting on Sat03/11/24 at 1108, Until Sat03/13/24 at 0115, [place], Nausea and Vomiting (N/V) [facility] diphenhydrA MINE (BENADRYL) injection 25 mg 2023-05 15:45: 00 03-11 15:14 :00 No 25mg 25 mg, Intravenou s, ONCE, 1 dose, On Sat03/11/24 at 1045, Routine [facility] morphine (2 mg/mL) injection 4 mg 2023-05 13:44: 13 03-11 17:55 :50 No 4mg 4 mg, Slow IV Push, Q4HPRN, Starting on Sat03/11/24 at 0844, Until Sat03/11/24 at 1255, Routine, Pain (scale 7-10) [facility] magnesium sulfate in water 4 gram/50 mL (8 %) IV Piggyback 4 g 2023-05 13:00: 00 03-11 16:09 :00 No 4g 4 g, IV Piggyback, at 25 mL/hr Administer over 120 Minutes, ONCE, 1 dose, On Sat03/11/24 at 0800, Routine [facility] tetracyclin e (ACHROMYCIN ) capsule 500 mg 2023-05 13:00: 00 03-11 16:07 :08 No 500mg 500 mg, Oral, QID, 112 doses, First dose on Sat03/11/24 at 0800, Last dose on Sat04/07/24 at 2000, [place], Reason for Anti-Infec tive: Documented Infection, Documented Infection Site: Abdominal, Duration of Therapy: 14 days [facility] metroNIDAZO LE (FLAGYL) tablet 500 mg 2023-05 13:00: 00 03-11 16:07 :08 No 500mg 500 mg, Oral, QID, First dose on Sat03/11/24 at 0800, Until Discontinu ed, Routine, Reason for Anti-Infec tive: Documented Infection, Documented Infection Site: Abdominal, Duration of Therapy: 14 days [facility] bismuth subsalicyla te (PEPTO BISMOL) chewable tablet 524 mg 2023-05 13:00: 00 03-11 16:07 :08 No 524mg 524 mg, Oral, QID, First dose on Sat03/11/24 at 0800, Until Discontinu ed [facility] lactated ringers IV infusion 1,000 mL 2023-05 08:30: 00 03-11 16:29 :00 No 1000mL at 125 mL/hr, 1,000 mL, IV Infusion, CONTINUOUS , Starting on Sat03/11/24 at 0330, Until Sat03/11/24 at 1129, Routine [facility] trimethoben zamide (TIGAN) injection 100 mg 2023-05 05:12: 20 03-13 16:08 :09 No 100mg 100 mg, Intramuscu lar, Q6HPRN, Starting on Sat03/11/24 at 0012, Until Sat03/13/24 at 1108, Routine, Nausea and Vomiting (N/V), alternate with zofran [facility] ondansetron (ZOFRAN (PF)) injection 4 mg 2023-05 03:42: 41 03-11 16:10 :43 No 4mg 4 mg, Slow IV Push, Q6HPRN, Starting on Sat03/10/24 at 2242, Until Sat03/11/24 at 1110, [place], Nausea and Vomiting (N/V) [facility] pantoprazol e (PROTONIX) injection 40 mg 2023-05 03:30: 00 03-13 16:08 :09 No 40mg 40 mg, Slow IV Push, Q12H, First dose on Sat03/10/24 at 2230, Until Discontinu ed [facility] morpHINE injection 4 mg 2023-05 03:21: 30 03-11 13:44 :25 No 4mg 4 mg, Slow IV Push, Q4HPRN, Starting on Sat03/10/24 at 2221, Until Sat03/11/24 at 0844, Routine, Pain (scale 7-10) [facility] acetaminoph en (TYLENOL) tablet 650 mg 2023-05 03:21: 25 03-13 16:08 :09 No 650mg [facility] morpHINE injection 4 mg 2023-05 02:00: 00 03-11 01:10 :00 No 4mg 4 mg, Slow IV Push, ONCE, 1 dose, On Sat03/10/24 at 2100, STAT [facility] trimethoben zamide (TIGAN) injection 100 mg 2023-05 02:00: 00 03-11 02:05 :00 No 100mg 100 mg, Intramuscu lar, ONCE, 1 dose, On Sat03/10/24 at 2100, Routine [facility] morpHINE injection 4 mg 2023-05 21:30: 00 03-10 22:20 :00 No 4mg 4 mg, Slow IV Push, ONCE, 1 dose, On Sat03/10/24 at 1630, STAT [facility] proMETHazin e (PHENERGAN) 25 mg in NS 50 mL IV piggyback (CNR) 2023-05 21:00: 00 03-10 22:30 :00 No 25mg 25 mg, IV Piggyback, at 200 mL/hr Administer over 15 Minutes, ONCE, 1 dose, On Sat03/10/24 at 1600, [facility] diphenhydrA MINE (BENADRYL) injection 25 mg 2023-05 19:00: 00 03-10 19:12 :00 No 25mg 25 mg, Slow IV Push, ONCE, 1 dose, On Sat03/10/24 at 1400, STAT [facility] ondansetron (ZOFRAN (PF)) injection 4 mg 2023-05 18:30: 00 03-10 18:34 :00 No 4mg 4 mg, Slow IV Push, ONCE, 1 dose, On Sat03/10/24 at 1330, [facility] diphenhydrA MINE:lidoca ine 2% viscous:maa lox 1:1:1 ([facility]) oral suspension 15 mL 2023-05 17:15: 00 03-10 18:34 :00 No 15mL 15 mL, Oral, ONCE, 1 dose, On Sat03/10/24 at 1215, Routine [facility] NaCl 0.9% (NS) bolus infusion 1,500 mL 2023-05 16:30: 00 03-11 00:19 :00 No 1500mL at 999 mL/hr, 1,500 mL, IV Infusion, ONCE, 1 dose, On Sat03/10/24 at 1130, [facility] morpHINE injection 4 mg 2023-05 16:30: 00 03-10 16:33 :00 No 4mg 4 mg, Slow IV Push, ONCE, 1 dose, On Sat03/10/24 at 1130, STAT [facility] ondansetron (ZOFRAN (PF)) injection 4 mg 2023-05 15:30: 00 03-10 15:54 :00 No 4mg 4 mg, Slow IV Push, ONCE, 1 dose, On Sat03/10/24 at 1030, [place] [facility] pantoprazol e (PROTONIX) EC tablet 40 mg 2023-05 01:00: 00 03-05 22:06 :08 No 40mg 40 mg, Oral, BID, First dose on Sat03/05/24 at 2000, Until Discontinu ed, Routine [facility] bismuth subsalicyla te (PEPTO BISMOL) chewable tablet 524 mg 2023-05 17:00: 00 03-05 22:06 :08 No 524mg 524 mg, Oral, QID, 56 doses, First dose on Sat03/05/24 at 1200, Last dose on Sat03/19/24 at 0800, Routine [facility] tetracyclin e (ACHROMYCIN ) capsule 500 mg 2023-05 13:00: 00 03-05 22:06 :08 No 500mg 500 mg, Oral, QID, 56 doses, First dose on Sat03/05/24 at 0800, Last dose on Sat03/18/24 at 2000, [place], Reason for Anti-Infec tive: Documented Infection, Documented Infection Site: Abdominal, Duration of Therapy: 14 days [facility] metroNIDAZO LE (FLAGYL) tablet 500 mg 2023-05 11:30: 00 03-05 22:06 :08 No 500mg 500 mg, Oral, Q8H, 42 doses, First dose on Sat03/05/24 at 0630, Last dose on Sat03/18/24 at 2200, Routine, Reason for Anti-Infec tive: Documented Infection, Documented Infection Site: Abdominal, Duration of Therapy: 14 days [facility] pantoprazol e (PROTONIX) injection 40 mg 2023-05 01:00: 00 03-05 16:38 :50 No 40mg 40 mg, Slow IV Push, Q12H, First dose on Sat03/04/24 at 2000, Until Discontinu ed [facility] metroNIDAZO LE 500 mg tablet 2023-05 00:00: 00 Yes [id number] 500mg Take 1 tablet by mouth 4 (four) times daily. [facility] tetracyclin e 500 mg capsule 2023-05 00:00: 00 Yes [id number] 500mg Take 1 capsule by mouth 4 (four) times daily. [facility] bismuth subsalicyla te 525 mg Tab 2023-05 00:00: 00 Yes [id number] 525mg Take 525 mg by mouth 4 (four) times daily. [facility] omeprazole 20 mg capsule 2023-05 00:00: 00 Yes [id number] 20mg Take 1 capsule by mouth in the morning and 1 capsule in the evening. [facility] ondansetron 4 mg disintegrat ing tablet 2023-05 00:00: 00 Yes [id number] 4mg Take 1 tablet by mouth every 8 (eight) hours as needed for Nausea and Vomiting (N/V). [facility] enoxaparin (LOVENOX) injection 40 mg 2023-05 22:00: 00 03-05 22:06 :08 No 40mg 40 mg, Subcutaneo us, DAILY, First dose on Sat03/04/24 at 1700, Until Discontinu ed, Routine [facility] hydrOXYzine (ATARAX) tablet 10 mg 2023-05 20:02: 48 03-05 22:06 :08 No 10mg 10 mg, Oral, Q6HPRN, Starting on Sat03/04/24 at 1502, Until Kathie 03/05/24 at 1706, Routine, Anxiety [facility] morphine (2 mg/mL) injection 4 mg 2023-05 19:15: 05 03-05 19:09 :51 No 4mg 4 mg, Slow IV Push, Q6HPRN, Starting on Sat03/04/24 at 1415, Until Kathie 03/05/24 at 1409, Routine, Pain (scale 7-10) [facility] proMETHazin e (PHENERGAN) 12.5 mg in NS 50 mL IV piggyback (CNR) 2023-05 19:13: 41 03-05 22:06 :08 No 12.5mg 12.5 mg, IV Piggyback, at 200 mL/hr Administer over 15 Minutes, Q4HPRN, Starting on Sat03/04/24 at 1413, Until Sat03/05/24 at 1706, Routine, N/V unresponsi ve to Ondansetro n [facility] ondansetron (ZOFRAN (PF)) injection 4 mg 2023-05 19:10: 57 03-05 22:06 :08 No 4mg 4 mg, Slow IV Push, Q6HPRN, Starting on Sat03/04/24 at 1410, Until Sat03/05/24 at 1706, Routine, Nausea and Vomiting (N/V) [facility] HYDROcodone -acetaminop hen (NORCO 5) tablet 1 tablet 2023-05 19:10: 38 03-05 22:06 :08 No 1{tbl} 1 tablet, Oral, Q6HPRN, Starting on Sat03/04/24 at 1410, Until Sat03/05/24 at 1706, Routine, Pain (scale 4-6) [facility] acetaminoph en (TYLENOL) tablet 650 mg 2023-05 19:10: 34 03-05 22:06 :08 No 650mg [facility] morphine (2 mg/mL) injection 4 mg 2023-05 16:15: 00 03-04 16:19 :00 No 4mg 4 mg, Slow IV Push, ONCE, 1 dose, On Sat03/04/24 at 1115, [place] [facility] ondansetron (ZOFRAN (PF)) injection 4 mg 2023-05 16:15: 00 03-04 16:19 :00 No 4mg 4 mg, Slow IV Push, ONCE, 1 dose, On Sat03/04/24 at 1115, [place] [facility] morphine (2 mg/mL) injection 4 mg 2023-05 13:15: 00 03-04 13:57 :00 No 4mg 4 mg, Slow IV Push, ONCE, 1 dose, On Sat03/04/24 at 0815, STAT [facility] pantoprazol e (PROTONIX) injection 40 mg 2023-05 13:15: 00 03-04 14:04 :00 No 40mg 40 mg, Slow IV Push, ONCE, 1 dose, On Sat03/04/24 at 0815 [facility] NaCl 0.9% (NS) bolus infusion 1,000 mL 2023-05 13:15: 00 03-04 16:51 :00 No 1000mL at 999 mL/hr, 1,000 mL, IV Infusion, ONCE, 1 dose, On Sat03/04/24 at 0815, [place] [facility] ondansetron (ZOFRAN (PF)) injection 4 mg 2023-05 12:15: 00 03-04 13:56 :00 No 4mg 4 mg, Slow IV Push, ONCE, 1 dose, On Sat03/04/24 at 0715, [place] [facility] escitalopra m oxalate 20 mg tablet 2023-05 00:00: 00 Yes 20mg Take 1 tablet by mouth in the morning. [facility] eszopiclone 3 mg tablet 2023-05 00:00: 00 Yes 3mg Take 1 tablet by mouth at bedtime. [facility] bismuth subsalicyla te 525 mg Tab 2023-05 00:00: 00 03-05 00:00 :00 No [id number] 525mg Take 525 mg by mouth 4 (four) times daily for 14 days. [facility] metroNIDAZO LE 500 mg tablet 2023-05 00:00: 00 03-05 00:00 :00 No [id number] 500mg Take 1 tablet by mouth 4 (four) times daily for 14 days. [facility] tetracyclin e 500 mg capsule 2023-05 00:00: 00 03-05 00:00 :00 No [id number] 500mg Take 1 capsule by mouth 4 (four) times daily for 14 days. [facility] omeprazole 20 mg capsule 2023-05 00:00: 00 03-05 00:00 :00 No [id number] 20mg Take 1 capsule by mouth in the morning and 1 capsule in the evening. Do all this for 14 days. [facility] pantoprazol e (PROTONIX) EC tablet 40 mg 2023-05 16:45: 00 02-26 23:59 :22 No 40mg 40 mg, Oral, BID, First dose (after last modificati on) on Kathie 02/27/24 at 1145, Until Discontinu ed, Routine [facility] lactated ringers IV infusion 2023-05 15:19: 00 02-26 15:26 :52 No IV Infusion, CONTINUOUS PRN, Starting on Kathie 02/27/24 at 1019, Until Kathie 02/27/24 at 1026, Routine, Intra-op [facility] simethicone (GAS RELIEF (SIMETHICON E)) 40 mg/0.6 mL drops 2023-05 14:57: 00 02-26 16:34 :28 No PRN, Starting on Kathie 02/27/24 at 0957, Until Kathie 02/27/24 at 1134, Routine, Intra-op [facility] PHENYLephri ne 1000 mcg/10 mL in 0.9% NaCl syringe 2023-05 14:50: 00 02-26 15:26 :52 No Intravenou s, ONCE INTRA PROCEDURE, Starting on Kathie 02/27/24 at 0950, Until Kathie 02/27/24 at 1026, Routine, Intra-op [facility] dexmedeTOMI Dine (PRECEDEX) injection 2023-05 14:27: 00 02-26 15:26 :52 No Intravenou s, ONCE INTRA PROCEDURE, Starting on Kathie 02/27/24 at 0927, Until Kathie 02/27/24 at 1026, Routine, Intra-op [facility] propofoL IV infusion 2023-05 14:26: 00 02-26 15:26 :52 No IV Infusion, ONCE INTRA PROCEDURE, Starting on Kathie 02/27/24 at 0926, Until Kathie 02/27/24 at 1026, Routine, [facility]op [facility] lidocaine 1% (XYLOCAINE) 100 mg/10 mL (1 %) injection 2023-05 14:26: 00 02-26 15:26 :52 No Intravenou s, ONCE INTRA PROCEDURE, Starting on Kathie 02/27/24 at 0926, Until Kathie 02/27/24 at 1026, Routine, Intra-op [facility] FENTanyl (PF) (SUBLIMAZE) injection 2023-05 14:26: 00 02-26 15:26 :52 No Intravenou s, ONCE INTRA PROCEDURE, Starting on Kathie 02/27/24 at 0926, Until Kathie 02/27/24 at 1026, Routine, Intra-op [facility] midazolam (VERSED) injection 2023-05 14:24: 00 02-26 15:26 :52 No IV Push, ONCE INTRA PROCEDURE, Starting on Kathie 02/27/24 at 0924, Until Kathie 02/27/24 at 1026, Routine, Intra-op [facility] NaCl 0.9% (NS) IV infusion 2023-05 14:22: 00 02-26 15:26 :52 No IV Infusion, CONTINUOUS PRN, Starting on Kathie 02/27/24 at 0922, Until Kathie 02/27/24 at 1026, Routine, Intra-op [facility] sodium phosphates (READY-TO-U SE ENEMA) 19-7 gram/118 mL enema 1 Enema 2023-05 10:00: 00 02-26 10:05 :00 No 1{enema } 1 Enema, Rectal, ONCE, 1 dose, On Kathie 02/27/24 at 0500, [facility] polyethylen [facility] glycol 3350 powder 17 g 2023-05 01:00: 00 02-26 21:59 :19 No 17g 17 g, Oral, BID, First dose (after last modificati on) on Sat02/26/24 at 2000, Until Discontinu ed, Routine [facility] ondansetron 4 mg disintegrat ing tablet 2023-05 00:00: 00 03-05 00:00 :00 No [id number] 4mg Take 1 tablet by mouth every 8 (eight) hours as needed for Nausea and Vomiting (N/V). [facility] pantoprazol e 40 mg EC tablet 2023-05 00:00: 00 03-05 00:00 :00 No [id number] 40mg Take 1 tablet by mouth in the morning and 1 tablet in the evening. [facility] amitriptyli ne 25 mg tablet 2023-05 00:00: 00 03-04 00:00 :00 No [id number] 25mg Take 1 tablet by mouth at bedtime. [facility] acetaminoph en-codeine 300-30 mg tablet 2023-05 00:00: 00 02-26 00:00 :00 No [id number] 1{tbl} Take 1 tablet by mouth every 4 (four) hours as needed for Pain (scale 7-10) for up to 7 days. Indication s: acute pain [facility] simethicone (GAS RELIEF (SIMETHICON E)) chewable tablet 80 mg 2023-05 23:00: 00 02-26 21:59 :19 No 80mg 80 mg, Oral, PC+HS, First dose on Sat02/26/24 at 1800, Until Discontinu ed, Routine [facility] morphine (2 mg/mL) injection 2 mg 2023-05 20:22: 36 02-26 21:59 :19 No 2mg 2 mg, Slow IV Push, Q4HPRN, Starting on Sat02/26/24 at 1522, Until Kathie 02/27/24 at 1659, Routine, Pain (scale 4-6) [facility] morphine (2 mg/mL) injection 4 mg 2023-05 20:22: 32 02-26 21:59 :19 No 4mg 4 mg, Slow IV Push, Q4HPRN, Starting on Sat02/26/24 at 1522, Until Sat02/27/24 at 1659, Routine, Pain (scale 7-10) [facility] LORazepam (ATIVAN) injection 0.5 mg 2023-05 18:39: 21 02-26 21:59 :19 No .5mg 0.5 mg, Slow IV Push, Q6HPRN, Starting on Sat02/26/24 at 1339, Until Sat02/27/24 at 1659, Routine, Anxiety [facility] bisacodyL (DULCOLAX) suppository 10 mg 2023-05 18:17: 00 02-25 18:47 :00 No 10mg 10 mg, Rectal, ONCE NOW, 1 dose, On Sat02/26/24 at 1330, Routine [facility] acetaminoph en (OFIRMEV) IV piggyback 1,000 mg 2023-05 15:30: 00 02-25 15:03 :00 No 1000mg 1,000 mg, IV Piggyback, at 400 mL/hr Administer over 15 Minutes, ONCE, 1 dose, On Sat02/26/24 at 1030, Routine, Is the patient strict NPO and unable to tolerate oral medication s? Yes [facility] bisacodyL (DULCOLAX) tablet 5 mg 2023-05 14:30: 00 02-26 21:59 :19 No 5mg 5 mg, Oral, DAILY, First dose on Sat02/26/24 at 0930, Until Discontinu ed, Routine [facility] amitriptyli ne (ELAVIL) tablet 25 mg 2023-05 02:00: 00 02-26 23:59 :22 No 25mg 25 mg, Oral, QHS, First dose on Sat02/25/24 at 2100, Until Discontinu ed, Routine [facility] morphine (2 mg/mL) injection 4 mg 2023-05 18:49: 53 02-25 14:28 :08 No 4mg 4 mg, Slow IV Push, Q4HPRN, Starting on Sat02/25/24 at 1349, Until Sat02/26/24 at 0928, Routine, Pain (scale 7-10) [facility] morphine (2 mg/mL) injection 2 mg 2023-05 18:49: 15 02-25 14:28 :08 No 2mg 2 mg, Slow IV Push, Q4HPRN, Starting on Sat02/25/24 at 1349, Until Sat02/26/24 at 0928, Routine, Pain (scale 7-10) [facility] gadobenate dimeglumine (MULTIHANCE -10 mL) injection 9.08 mL 2023-05 17:30: 00 02-24 17:30 :00 No [id number] .2mL/kg 9.08 mL (0.2 mL/kg ?45.4 kg), Intravenou s, ONCE, 1 dose, On Sat02/25/24 at 1230, Routine [facility] LORazepam (ATIVAN) injection 1 mg 2023-05 17:00: 00 02-24 16:25 :00 No 1mg 1 mg, Slow IV Push, ONCE, 1 dose, On Sat02/25/24 at 1200, STAT [facility] polyethylen e glycol 3350 powder 17 g 2023-05 16:00: 00 02-25 14:24 :01 No 17g 17 g, Oral, DAILY, First dose on Sat02/25/24 at 1100, Until Discontinu ed, Routine [facility] lactated ringers IV infusion 1,000 mL 2023-05 13:15: 00 02-26 21:59 :19 No 1000mL at 125 mL/hr, 1,000 mL, IV Infusion, CONTINUOUS , Starting on Sat02/25/24 at 0815, Until Kathie 02/27/24 at 1659, Routine [facility] potassium chloride in water (KCL) 20 mEq/100 mL IV infusion 20 mEq 2023-05 13:00: 00 02-24 13:30 :00 No 20meq 20 mEq, IV Infusion, at 50 mL/hr Administer over 2 Hours, ONCE, 1 dose, On Sat02/25/24 at 0800, Routine [facility] melatonin (MELATIN) tablet 3 mg 2023-05 02:00: 00 02-26 21:59 :19 No 3mg 3 mg, Oral, QHS, First dose on Sat02/24/24 at 2100, Until Discontinu ed, Routine [facility] lactated ringers IV infusion 500 mL 2023-05 19:30: 00 02-24 09:54 :00 No 500mL at 999 mL/hr, 500 mL, IV Infusion, ONCE, 1 dose, On Sat02/24/24 at 1430, Routine [facility] Lidocaine (LIDOCARE) 4 % patch 1 Patch 2023-05 18:00: 00 02-24 05:15 :00 No 1{patch } 1 Patch, Topical, Administer over 12 Hours, ONCE, 1 dose, On Sat02/24/24 at 1300, Routine [facility] LORazepam (ATIVAN) injection 0.5 mg 2023-05 12:25: 30 02-25 18:39 :43 No .5mg 0.5 mg, Slow IV Push, Q6HPRN, Starting on Sat02/24/24 at 0725, Until Sat02/26/24 at 1339, Routine, Anxiety, Agitation [facility] diphenhydrA MINE (BENADRYL) injection 25 mg 2023-05 01:40: 29 02-23 14:54 :01 No 25mg 25 mg, Intravenou s, Q6HPRN, Starting on Sat02/23/24 at 2040, Until Sat02/24/24 at 0954, Routine, Nausea and Vomiting (N/V) [facility] LORazepam (ATIVAN) injection 0.5 mg 2023-05 01:39: 00 02-23 02:48 :00 No .5mg 0.5 mg, Slow IV Push, ONCE, 1 dose, On Sat02/23/24 at 2045, Routine [facility] diphenhydrA MINE (BENADRYL) injection 25 mg 2023-05 14:19: 13 02-23 01:14 :28 No 25mg 25 mg, Intravenou s, Q6HPRN, Starting on 02/23/24 at 0919, Until 02/23/24 at 2014, Routine, Nausea and Vomiting (N/V) [facility] ondansetron (ZOFRAN (PF)) injection 4 mg 2023-05 14:18: 38 02-26 21:59 :19 No 4mg 4 mg, Slow IV Push, Q6HPRN, Nausea and Vomiting (N/V), Starting on 02/23/24 at 0918, Doses of ondansetro n 16 mg and above need to be administer ed via IV piggyback. For Dose >=24mg ECG monitoring is advisable. [facility] pantoprazol e (PROTONIX) injection 40 mg 2023-05 11:53: 00 02-25 19:46 :39 No 40mg 40 mg, Slow IV Push, Q24H, First dose (after last modificati on) on Sat02/23/24 at 0700, Until Discontinu ed [facility] cariprazine (VRAYLAR) 1.5 mg capsule 2023-05 09:24: 25 Yes 1.5mg Take 1 capsule by mouth in the morning. [facility] LORazepam 0.5 mg tablet 2023-05 09:24: 25 Yes .5mg Take 1 tablet by mouth. [facility] diphenhydrA MINE (BENADRYL) injection 25 mg 2023-05 03:57: 18 02-22 14:19 :23 No 25mg 25 mg, Intravenou s, Q4HPRN, Starting on 02/22/24 at 2257, Until 02/23/24 at 0919, Routine, Nausea and Vomiting (N/V) [facility] heparin (porcine) injection 5,000 Units 2023-05 01:00: 00 02-26 21:59 :19 No 5000U 5,000 Units, Subcutaneo us, Q12H, First dose on 02/22/24 at 2000, Until Discontinu ed, Routine [facility] morphine (2 mg/mL) injection 4 mg 2023-05 19:33: 18 02-24 15:57 :38 No 4mg 4 mg, Slow IV Push, Q4HPRN, Starting on 02/22/24 at 1433, Until 02/25/24 at 1057, Routine, Pain (scale 7-10) [facility] proMETHazin e (PHENERGAN) 25 mg in NS 50 mL IV piggyback (CNR) 2023-05 19:33: 05 02-22 14:19 :00 No 25mg 25 mg, IV Piggyback, at 200 mL/hr Administer over 15 Minutes, Q4HPRN, Starting on 02/22/24 at 1433, Until 02/23/24 at 0919, [place], Nausea and Vomiting (N/V) [facility] metoprolol tartrate 50 mg tablet 2023-05 19:26: 59 02-26 00:00 :00 No 50mg Take 1 tablet by mouth in the morning and 1 tablet in the evening. [facility] escitalopra m oxalate (LEXAPRO) 10 mg tablet 2023-05 19:26: 59 02-26 00:00 :00 No 10mg Take 1 tablet by mouth in the morning. [facility] morphine (2 mg/mL) injection 4 mg 2023-05 17:45: 00 02-21 18:20 :00 No 4mg 4 mg, Slow IV Push, ONCE, 1 dose, On 02/22/24 at 1245, STAT [facility] proMETHazin e (PHENERGAN) 25 mg in NS 50 mL IV piggyback (CNR) 2023-05 16:45: 00 02-21 17:33 :00 No 25mg 25 mg, IV Piggyback, at 200 mL/hr Administer over 15 Minutes, ONCE, 1 dose, On 02/22/24 at 1145, [facility] morphine (2 mg/mL) injection 4 mg 2023-05 16:00: 00 02-21 16:06 :00 No 4mg 4 mg, Slow IV Push, ONCE, 1 dose, On 02/22/24 at 1100, STAT [facility] famotidine (PEPCID (PF)) injection 20 mg 2023-05 15:00: 00 02-21 15:35 :00 No 20mg 20 mg, Slow IV Push, ONCE, 1 dose, On 02/22/24 at 1000, [facility] ondansetron (ZOFRAN (PF)) injection 4 mg 2023-05 15:00: 00 02-21 15:34 :00 No 4mg 4 mg, Slow IV Push, ONCE, 1 dose, On 02/22/24 at 1000, [facility] NaCl 0.9% (NS) bolus infusion 1,000 mL 2023-05 15:00: 00 02-21 18:06 :00 No 1000mL at 999 mL/hr, 1,000 mL, IV Infusion, ONCE, 1 dose, On 02/22/24 at 1000, STAT [facility] buPROPion XL 150 mg 24 hr tablet 01-22 00:00: 00 Yes 150mg Take 1 tablet by mouth every morning. [facility] cholestyram ine 4 gram powder 01-20 00:00: 00 Yes MIX AND DRINK 1 SCOOP BY MOUTH DAILY [facility] busPIRone 7.5 mg tablet 01-19 00:00: 00 Yes 7.5mg Take 1 tablet by mouth in the morning and 1 tablet in the evening. [facility] metoprolol tartrate 50 mg tablet [...] 08-23 00:00: 00 11-22 04:59 :00 No [id number] 250mg Take 1 tablet by mouth in [...] 1 dose, On 05/19/23 at 1000, [place] [facility] iopamidol (ISOVUE 370-500 mL) injection 80 mL 05-19 15:50: 00 05-19 16:15 :00 No [id number] 80mL 80 mL, Intravenou s, ONCE, 1 dose, On 05/19/23 at 1015, Routine [facility] dicyclomine (BENTYL) tablet 20 mg 05-19 15:45: 00 05-19 16:09 :00 No 20mg 20 mg, Oral, ONCE, 1 dose, [facility]19[facility]23 [facility] 0945[facility] (ZOFRAN (PF[facility] 4 mg 05-19 15:15: 00 05-19 15:50 :00 No 4mg 4 mg, Slow IV Push, ONCE, 1 dose, On 05/19/23 at 0915, [facility] maalox:diph enhydrAMINE :lidocaine 2 % viscous 1:1:1 ([facility]) oral suspension 15 mL 05-19 15:15: 00 05-19 15:49 :00 No 15mL 15 mL, Oral, ONCE, 1 dose, On 05/19/23 at 0915, Routine [facility] famotidine (PEPCID (PF)) injection 20 mg 05-19 15:15: 00 05-19 15:51 :00 No 20mg 20 mg, Slow IV Push, ONCE, 1 dose, On 05/19/23 at 0915, [facility] ondansetron 4 mg disintegrat ing tablet 05-19 00:00: 00 02-26 00:00 :00 No [id number] 4mg Take 1 tablet by mouth every 8 (eight) hours as needed for Nausea and Vomiting (N/V). [facility] sucralfate 1 gram tablet 05-19 00:00: 00 06-19 05:59 :00 No [id number] 1g Take 1 tablet by mouth before meals and at bedtime for 30 days. [facility] pantoprazol e 40 mg EC tablet 05-19 00:00: 00 06-19 05:59 :00 No [id number] 40mg Take 1 tablet by mouth in the morning for 30 days. [facility] cefdinir 300 mg capsule 07 00:00: 00 05-27 05:59 :00 No [id number] 300mg Take 1 capsule by mouth every [...] 01-15 00:00: 00 02-26 00:00 :00 No [id number] 4mg Take 1 tablet by mouth every 8 (eight) hours as needed for Nausea and Vomiting (N/V). [facility] HYDROcodone -acetaminop hen 5-325 mg tablet 01-15 00:00: 00 01-23 04:59 :00 No [id number] 1{tbl} Take 1 tablet by mouth every 4 (four) hours as needed for Pain (scale 4-6) for up to 7 days. Indication s: acute pain [facility] morpHINE (2 mg/mL) injection 2 mg 01-14 16:11: 23 01-15 11:49 :59 No 2mg 2 mg, Slow IV Push, Q4HPRN, Starting on Sat01/14/23 at 1111, Until Sat01/15/23 at 0649, Routine, Pain (scale 7-10) [facility] methocarbam oL (ROBAXIN) tablet 500 mg 01-14 13:00: 00 Yes 500mg 500 mg, Oral, QID, First dose on Sat01/14/23 at 0800, Until Discontinu ed, Routine [facility] celecoxib (CELEBREX) capsule 100 mg 01-14 13:00: 00 Yes 100mg 100 mg, Oral, BID MEALS, First dose on 01/14/23 at 0800, Until Discontinu ed, Routine [facility] gabapentin (NEURONTIN) capsule 300 mg 01-14 01:30: 00 Yes 300mg 300 mg, Oral, TID, First dose on Sat01/13/23 at 2030, Until Discontinu ed, Routine [facility] acetaminoph en (TYLENOL) tablet 1,000 mg 01-14 01:30: 00 Yes 1000mg 1,000 mg, Oral, Q8H, First dose (after last modificati on) on Sat01/13/23 at 2030, Until Discontinu ed, Routine [facility] scopolamine transdermal (TRANSDERM- SCOP) patch 1.5 mg 01-13 00:30: 00 Yes 1.5mg 1.5 mg, Topical, Administer over 72 Hours, Q72H, First dose on 01/12/23 at 1930, Until Discontinu ed, Routine [facility] enoxaparin (LOVENOX) injection 40 mg 01-12 22:00: 00 Yes 40mg 40 mg, Subcutaneo us, DAILY, First dose on 01/12/23 at 1700, Until Discontinu ed, Routine [facility] FENTanyl PF (SUBLIMAZE (PF)) injection 100 mcg 01-12 20:30: 00 01-12 20:30 :00 No [id number] 100ug 100 mcg, Slow IV Push, ONCE, 1 dose, On 01/12/23 at 1530, Routine [facility] proMETHazin e (PHENERGAN) 25 mg [...] Abdominal< br>Duratio n of Therapy: 7 days [facility] pantoprazol e (PROTONIX) EC tablet 40 mg 01-12 14:00: 00 Yes 40mg 40 mg, Oral, DAILY, First dose on Sat01/12/23 at 0900, Until Discontinu ed, Routine [facility] KCL (KLOR-CON M20) tablet 40 mEq 01-12 09:30: 00 01-12 09:25 :00 No 40meq 40 mEq, Oral, ONCE, 1 dose, On Sat01/12/23 at 0430, Routine [facility] diphenhydrA MINE (BENADRYL) tablet 25 mg [...] 0315, Until Sat01/15/23 at 0648, Routine [facility] piperacilli n-tazobacta m (ZOSYN) 3.375 g in NaCl 0.9% (NS) 100 mL MINI-BAG 01-12 06:45: 00 01-12 08:43 :00 No 3.375g 3.375 g, IV Piggyback, ONCE, 1 dose, On 01/12/23 at 0145, Administer over 30 Minutes, 100 mL
Reas on for Anti-Infec tive: Documented Infection< br>Documen renata Infection Site: Abdominal< br>Duratio n of Therapy: 7 days [facility] lactated ringers IV infusion 1,000 mL 01-12 06:00: 00 01-12 08:13 :38 No 1000mL at 100 mL/hr, 1,000 mL, IV Infusion, CONTINUOUS , Starting on 01/12/23 at 0100, Until 01/12/23 at 0313, Routine [facility] morpHINE (4 mg/mL) injection 4 mg 01-12 05:49: 22 01-14 05:48 :22 No 4mg 4 mg, Slow IV Push, Q4HPRN, Starting on 01/12/23 at 0049, Until 01/14/23 at 0048, Routine, Pain (scale 7-10) [facility] HYDROcodone -acetaminop hen (NORCO [...] 1231, Routine, Nausea and Vomiting (N/V) [facility] ondansetron (ZOFRAN (PF)) injection 4 mg 01-12 04:45: 00 01-12 04:45 :00 No 4mg 4 mg, Slow IV Push, ONCE, 1 dose, [facility] Sat01/11/23 at 2345, [facility] (4 mg/mL) injection 4 mg 01-12 04:45: 00 01-12 04:45 :00 No 4mg 4 mg, Slow IV Push, ONCE, 1 dose, On Sat01/11/23 at 2345, STAT [facility] proMETHazin e (PHENERGAN) 25 mg in NS 50 mL IV piggyback (CNR) 01-12 04:45: 00 01-12 06:00 :00 No 25mg 25 mg, IV Piggyback, at 200 mL/hr Administer over 15 Minutes, ONCE, 1 dose, On Sat01/11/23 at 2345, [facility] iopamid[facility] (ISOVUE 370-500 mL) injection 80 mL 01-12 03:33: 00 01-12 03:25 :00 No [id number] 80mL 80 mL, Intravenou s, ONCE, 1 dose, On Sat01/11/23 at 2245, Routine [facility] maalox:diph enhydrAMINE :lidocaine 2 % viscous 1:1:1 ([facility]) oral suspension 15 mL 01-12 03:30: 00 01-12 03:07 :00 No 15mL 15 mL, Oral, ONCE, 1 dose, On Sat01/11/23 at 2230, Routine [facility] morpHINE (4 mg/mL) injection 4 mg 01-12 03:30: 00 01-12 03:05 :00 No 4mg 4 mg, Slow IV Push, ONCE, 1 dose, On Sat01/11/23 at 2230, [facility] NaCl 0.9% (NS) bolus infusion 1,000 mL 01-12 03:30: 00 01-12 03:04 :00 No 1000mL at 999 mL/hr, 1,000 mL, IV Infusion, ONCE, 1 dose, On Sat01/11/23 at 2230, [facility] ondansetron (ZOFRAN (PF)) injection 4 mg 01-12 03:00: 00 01-12 03:05 :00 No 4mg 4 mg, Slow IV Push, ONCE, 1 dose, On Sat01/11/23 at 2200, [facility] ibuprofen (IBU) tablet 600 mg 11-21 22:15: 00 11-21 21:44 :00 No 600mg 600 mg, Oral, ONCE, 1 dose, On Sat11/21/22 at 1715, [facility] butalbital- acetaminoph en-caff (ESGIC) 50-325-40 mg tablet 1 tablet 11-21 21:30: 00 11-21 21:39 :00 No 1{tbl} 1 tablet, Oral, ONCE, 1 dose, On Sat11/21/22 at 1630, [facility] ciprofloxac in HCl 500 mg tablet 11-11 00:00: 00 02-26 00:00 :00 No TAKE 1 TABLET BY MOUTH EVERY 12 HOURS FOR 7 DAYS [facility] methocarbam oL 750 mg tablet 11-07 00:00: 00 Yes 750mg Take 1 tablet by mouth 2 (two) times daily as needed. [facility] methocarbam oL 750 mg tablet 11-07 00:00: 00 02-26 00:00 :00 No 1{tbl} Take 1 tablet by mouth 2 (two) times daily as needed. [facility] baclofen 10 mg tablet 10-27 00:00: 00 Yes 10mg Take 1 tablet by mouth every 6 (six) hours as needed. [facility] baclofen 10 mg tablet 10-27 00:00: 00 02-26 00:00 :00 No 1{tbl} Take 1 tablet by mouth every 6 (six) hours as needed. [facility] tiZANidine 4 mg tablet 14 00:00: 00 Yes 4mg Take 1 tablet by mouth every 6 (six) hours as needed. [facility] tiZANidine 4 mg tablet 2022-0 6-14 00:00: 00 02-26 00:00 :00 No 1{tbl} Take 1 tablet by mouth every 6 (six) hours as needed. [facility] traZODone 50 mg tablet 2022-0 6-12 00:00: 00 Yes 50mg Take 1 tablet by mouth at bedtime. [facility] traZODone 50 mg tablet 2022-0 6-12 00:00: 00 02-26 00:00 :00 No 1{tbl} Take 1 tablet by mouth at bedtime. [facility] hydrOXYzine 50 mg tablet 0 5-23 00:00: 00 Yes 50mg Take 1 tablet by mouth every 6 (six) hours as needed. [facility] hydrOXYzine 50 mg tablet 0 5-23 00:00: 00 02-26 00:00 :00 No 1{tbl} Take 1 tablet by mouth every 6 (six) hours as needed. [facility] mirtazapine 15 mg tablet 2022-0 5-12 00:00: 00 02-26 00:00 :00 No 15mg Take 1 tablet by mouth at bedtime. [facility] meloxicam 15 mg tablet 0 5-09 00:00: 00 Yes 15mg Take 1 tablet by mouth in the morning. [facility] meloxicam 15 mg tablet 2022-0 5-09 [...] [facility] OLANZapine 10 mg tablet 0 4-27 00:00: 00 02-26 00:00 :00 No 10mg Take 1 tablet by mouth in the morning. [facility] cloNIDine 0.1 mg tablet 09-06 00:00: 00 02-26 00:00 :00 No TAKE 1-2 TABLETS BY MOUTH AT BEDTIME NEEDED FOR SLEEP AND ANXIETY [facility] NaCl 0.9% (NS) bolus infusion 1,000 mL 09-05 18:15: 09-05 18:08 :00 No 1000mL at 999 mL/hr, 1,000 mL, IV Infusion, ONCE, 1 dose, On Sat09/05/22 at 1315, STAT [facility] acetaminoph en (TYLENOL) tablet 650 mg 09-05 17:30: 00 09-05 17:24 :00 No 650mg 650 mg, Oral, ONCE, 1 dose, On Sat09/05/22 at 1230, [place] [facility] ondansetron (ZOFRAN (PF)) injection 4 mg 09-05 17:15: 09-05 17:23 :00 No 4mg 4 mg, [...] Slow IV Push, ONCE, 1 dose, On 4/26/23 at 1030, Routine [facility] NaCl [...] ONCE, 1 dose, [facility] Sat09/05/22 at 0900[facility] mg tablet 09-05 00:00: 00 02-26 00:00 :00 No [id number] 25mg Take 1 tablet by mouth in the morning and 1 tablet in the evening. Take with meals. [facility] losartan 50 mg tablet 09-05 00:00: 00 02-26 00:00 :00 No [id number] 50mg Take 1 tablet by mouth in [...] :lidocaine 2 % viscous 1:1:1 ([facility]) oral suspension 15 mL 08-01 00:45: 00 08-01 00:44 :00 No 15mL 15 mL, Oral, ONCE, 1 dose, On Sat07/31/22 at 1945, [place] [facility] ketorolac (TORADOL) injection 15 mg 08-01 00:15: 00 08-01 00:44 :00 No 15mg 15 mg, Slow IV Push, ONCE, 1 dose, On Sat07/31/22 at 1915, Routine [facility] ondansetron (ZOFRAN (PF)) injection 4 mg 08-01 00:15: 00 08-01 00:46 :00 No 4mg 4 mg, Slow IV Push, ONCE, 1 dose, On Sat07/31/22 at 1915, [facility] famot[facility] (PEPCID (PF)) injection 20 mg 08-01 00:15: 00 08-01 00:46 :00 No 20mg 20 mg, Slow IV Push, ONCE, 1 dose, On Sat07/31/22 at 191, [facility] ondansetron 4 mg disintegrat ing tablet 07-31 00:00: 00 05-19 00:00 :00 No [id number] 4mg Take 1 tablet by mouth every 8 (eight) hours as needed for Nausea and Vomiting (N/V). [facility] sucralfate 1 gram tablet 07-31 00:00: 00 05-19 00:00 :00 No [id number] 1g Take 1 tablet by mouth before meals and at bedtime. [facility] pantoprazol e 40 mg EC tablet 07-31 00:00: 00 08-15 04:59 :00 No [id number] 40mg Take 1 tablet by mouth in the morning for 14 days. [facility] tamsulosin 0.4 mg 24 hr capsule 07-25 00:00: 00 Yes .4mg Take 1 capsule by mouth in the morning. [facility] tamsulosin 0.4 mg 24 hr capsule 07-25 00:00: 00 02-26 00:00 :00 No 1{capsu le} Take 1 capsule by mouth in the morning. [facility] traMADoL 50 mg tablet 07-23 00:00: 00 02-26 00:00 :00 No 50mg Take 1 tablet by mouth. [facility] ibuprofen 600 mg tablet 07-15 00:00: 00 07-31 00:00 :00 No [id number] 600mg Take 1 tablet by mouth every 6 (six) hours as needed for Pain (scale 4-6). [facility] citalopram 10 mg tablet 06-29 00:00: 00 Yes 10mg Take 1 tablet by mouth in the morning. [facility] citalopram 10 mg tablet 06-29 00:00: 00 02-26 00:00 :00 No 1{tbl} Take 1 tablet by mouth in the morning. [facility] QUEtiapine 400 mg tablet 06-29 00:00: 00 02-26 00:00 :00 No [facility] gabapentin 600 mg tablet 06-29 00:00: 00 02-26 00:00 :00 No [facility] methylPREDN ISolone (MEDROL, ANABELA,) 4 mg tablets 06-23 00:00: 00 09-24 00:00 :00 No [id number] Take by mouth SEE-INSTRU CTIONS. follow package directions [facility] bromphenira mine-pseudo ephedrine-D M (BROMFED DM) 2-30-10 mg/5 mL syrup 06-23 00:00: 00 07-04 05:59 :00 No [id number] 5mL Take 5 mL by mouth 4 (four) times daily as needed for Cold symptoms for up to 10 days. [facility] methocarbam oL 750 mg tablet 06-23 00:00: 00 07-01 05:59 :00 No [id number] 750mg Take 1 tablet by mouth 4 (four) times daily for 7 days. [facility] magnesium sulfate in water 2 gram/50 mL (4 %) infusion 2 g 2021-05 21:00: 00 05-05 21:15 :00 No 2g 2 g, IV Piggyback, Administer over 15 Minutes, ONCE, 1 dose, On 05/05/22 at 1500, [facility] butalbital- acetaminoph en-caff (ESGIC) 50-325-40 mg tablet 1 tablet 2021-05 20:15: 00 05-05 20:56 :00 No 1{tbl} 1 tablet, Oral, ONCE, 1 dose, On 05/05/22 at 1415, [facility] dexamethaso ne sod phos [...] ONCE, 1 dose, On 05/05/22 at 1400, [facility] diphenhydrA MINE (BENADRYL) injection [...] 2021-05 00:00: 00 09-24 00:00 :00 No [id number] 1{tbl} Take 1 tablet by mouth every [...] 2021-05 00:00: 00 05-04 05:59 :00 No [id number] 500mg Take 1 capsule by mouth in [...] 2021-05 00:00: 00 02-26 00:00 :00 No [id number] 120mg inject 120 mg under the skin [...] 1 dose, On 04/07/22 at 1845, Routine [facility] HYDROcodone -acetaminop hen (NORCO) 10-325 mg tablet 1 tablet 2021-05 00:30: 00 04-07 23:45 :00 No 1{tbl} 1 tablet, Oral, ONCE NOW, 1 dose, On 04/07/22 at 1830, Routine [facility] diphenhydrA MINE (BENADRYL) injection 12.5 mg 2021-05 23:45: 00 04-07 23:46 :00 No 12.5mg 12.5 mg, Slow IV Push, ONCE, 1 dose, On 04/07/22 at 1745, STAT [facility] butorphanol (STADOL) injection 1 mg 2021-05 23:15: 00 04-07 22:48 :00 No 1mg 1 mg, IV Push, ONCE, 1 dose, On 04/07/22 at 1715, Routine [facility] NaCl 0.9% (NS) bolus infusion 1,000 mL 2021-05 23:15: 00 04-07 23:49 :00 No 1000mL at 999 mL/hr, 1,000 mL, IV Infusion, ONCE, 1 dose, On 04/07/22 at 1715, [place] [facility] ketorolac (TORADOL) injection 15 mg 2021-05 19:30: 00 03-24 18:45 :00 No 15mg 15 mg, Slow IV Push, ONCE, 1 dose, On 03/24/22 at 1330, Routine [facility] butorphanol (STADOL) injection 1 mg 2021-05 18:00: 00 03-24 17:26 :00 No 1mg 1 mg, Intravenou s, ONCE, 1 dose, On 03/24/22 at 1200, Routine [facility] proMETHazin e (PHENERGAN) 25 mg [...] 1 dose, On 03/24/22 at 0915, [place] [facility] magnesium sulfate in [...] 2021-05 00:00: 00 02-26 00:00 :00 No [id number] 10mg Take 1 tablet by mouth as needed for Migraine. May repeat in 2 hours if needed [facility] Butalbital- Acetaminoph en-Caff (FIORICET) 50-300-40 mg per capsule 2021-05 00:00: 00 02-26 00:00 :00 No [id number] 1{capsu le} Take 1 capsule by mouth [...] 1 dose, On Sat03/15/22 at 1030, Routine [facility] proMETHazin e (PHENERGAN) tablet 25 mg 2021-05 14:45: 00 03-15 14:55 :00 No 25mg 25 mg, Oral, ONCE, 1 dose, On Sat03/15/22 at 0945, [place] [facility] FENTanyl PF (SUBLIMAZE (PF)) injection 50 mcg 2021-05 14:45: 00 03-15 13:58 :00 No 50ug 50 mcg, Slow IV Push, ONCE, 1 dose, On Sat03/15/22 at 0945, Routine [facility] ondansetron (ZOFRAN (PF)) injection 4 mg 2021-05 14:00: 00 03-15 13:58 :00 No 4mg 4 mg, Slow IV Push, ONCE, 1 dose, On Kathie 03/15/22 at 0900, [place] [facility] carvediloL 25 mg tablet 2021-05 00:00: 00 09-05 00:00 :00 No [id number] 25mg Take 1 tablet by mouth in the morning and 1 tablet in the evening. Take with meals. [facility] ondansetron 4 mg disintegrat ing tablet 2021-05 00:00: 00 04-07 00:00 :00 No [id number] 4mg Take 1 tablet by mouth every 8 (eight) hours as needed for Nausea and Vomiting (N/V). [facility] ketorolac 10 mg tablet 2021-05 00:00: 00 04-07 00:00 :00 No [id number] 10mg Take 1 tablet by mouth every 6 (six) hours as needed for Pain (scale 7-10). [facility] proMETHazin e 25 mg tablet 2021-05 00:00: 00 04-07 00:00 :00 No [id number] 25mg Take 1 tablet by mouth every 6 (six) hours as needed for N/V unresponsi ve to Ondansetro n. [facility] cephALEXin 500 mg capsule 2021-05 00:00: 00 03-19 05:59 :00 No [id number] 500mg Take 1 capsule by mouth 4 (four) times daily for 3 days. [facility] predniSONE 20 mg tablet 2021-05 00:00: 00 03-15 04:59 :00 No [id number] 20mg Take 1 tablet by mouth in the morning for 2 days. [facility] methocarbam oL (ROBAXIN) tablet 500 mg 2021-05 0 16:45: 00 03-11 17:08 :00 No 500mg 500 mg, Oral, ONCE, 1 dose, On 03/11/22 at 1200, [facility] dexamethaso ne sod phos PF injection 10 mg 2021-05 16:00: 00 03-11 16:00 :00 No 10mg 10 mg, Slow IV Push, ONCE, 1 dose, On 03/11/22 at 1100, 1 mL [facility] diphenhydrA MINE (BENADRYL) injection 25 mg 2021-05 15:46: 00 03-11 16:00 :00 No 25mg 25 mg, Slow IV Push, ONCE, 1 dose, On 03/11/22 at 1100, STAT [facility] NaCl [...] ONCE, 1 dose, On 03/11/22 at 1015, [facility] ketorolac (TORADOL) injection 15 mg 2021-05 14:45: 00 03-11 15:05 :00 No 15mg 15 mg, Slow IV Push, ONCE, 1 dose, On 03/11/22 at 0945, [facility] proMETHazin e (PHENERGAN) 12.5 mg in NaCl 0.9% (NS) 50 mL IV piggyback 2021-05 14:45: 00 03-11 15:04 :00 No 12.5mg 12.5 mg, IV Piggyback, ONCE, 1 dose, On 03/11/22 at 0945, [facility] proMETHazin e 25 mg tablet 2021-05 00:00: 07-31 00:00 :00 No [id number] 25mg Take 1 tablet by mouth every 6 (six) hours as needed for Nausea and Vomiting (N/V). [facility] methocarbam oL 500 mg tablet 2021-05 030 00:00: 00 04-07 00:00 :00 No [id number] 500mg Take 1 tablet by mouth 3 (three) times daily as needed for Pain (scale 7-10). [facility] topiramate 25 mg tablet 2021-05 00:00: 00 02-26 00:00 :00 No [id number] 100mg Take 4 tablets by mouth in [...] 2021-05 00:00: 00 02-26 00:00 :00 No [id number] 2{puff} Inhale 2 Puffs every 6 (six) [...] 2021-05 00:00: 00 03-07 04:59 :00 No [id number] 200mg Take 1 capsule by mouth 3 (three) times daily as needed for Cough for up to 7 days. [facility] butalbital- acetaminoph en-caff (ESGIC) 50-325-40 mg tablet 1 tablet 2021-05 08:15: 00 02-21 08:09 :00 No 1{tbl} 1 tablet, Oral, ONCE, 1 dose, On Sat02/21/22 at 0315, [facility] butorphanol (STADOL) injection 1 mg 2021-05 08:15: 00 02-21 07:28 :00 No 1mg 1 mg, IV Push, ONCE, 1 dose, On Sat02/21/22 at 0315, Routine [facility] NaCl 0.9% (NS) bolus infusion 1,000 mL 2021-05 07:15: 00 02-21 08:40 :00 No 1000mL at 999 mL/hr, 1,000 mL, IV Infusion, ONCE, 1 dose, On Sat02/21/22 at 0215, [facility] proMETHazin e (PHENERGAN) 12.5 mg in NaCl 0.9% (NS) 50 mL IV piggyback 2021-05 06:30: 00 02-21 06:38 :00 No 12.5mg 12.5 mg, IV Piggyback, ONCE, 1 dose, On Sat02/21/22 at 0130, [facility] dexamethaso ne sod phos PF injection 10 mg 2021-05 06:30: 00 02-21 06:38 :00 No 10mg 10 mg, Slow IV Push, ONCE, 1 dose, On Sat02/21/22 at 0130, 1 mL [facility] ketorolac (TORADOL) injection 15 mg 2021-0512 06:30: 00 02-21 06:38 :00 No 15mg 15 mg, Slow IV Push, ONCE, 1 dose, On Sat02/21/22 at 0130, [facility] diphenhydrA MINE (BENADRYL) injection 25 mg 2021-05 06:30: 00 02-21 06:38 :00 No 25mg 25 mg, Slow IV Push, ONCE, 1 dose, On Sat02/21/22 at 0130, STAT [facility] FENTanyl PF (SUBLIMAZE (PF)) injection 50 mcg 2021-05 20:30: 00 02-18 19:44 :00 No 50ug 50 mcg, Slow IV Push, ONCE, 1 dose, On 02/18/22 at 1530, Routine [facility] ketorolac (TORADOL) injection 30 mg 2021-05 20:15: 00 02-18 20:09 :00 No 30mg 30 mg, Slow IV Push, ONCE, 1 dose, [facility]18[facility]22 [facility] 1515[facility] i[facility] (ISOVUE 370-500 mL) injection 60 mL 2021-05 19:30: 00 02-18 17:30 :00 No [id number] 60mL 60 mL, Intravenou s, ONCE, 1 dose, On 02/18/22 at 1430, Routine [facility] proMETHazin e (PHENERGAN) 12.5 mg in NaCl 0.9% (NS) 50 mL IV piggyback 2021-05 18:15: 00 02-18 18:19 :00 No 12.5mg 12.5 mg, IV Piggyback, ONCE, 1 dose, On Sat02/18/22 at 1315, [place] [facility] FENTanyl PF (SUBLIMAZE (PF)) injection 50 mcg 2021-05 18:00: 00 02-18 17:26 :00 No 50ug 50 mcg, Slow IV Push, ONCE, 1 dose, On Sat02/18/22 at 1300, Routine [facility] ondansetron (ZOFRAN (PF)) injection 4 mg 2021-05 17:15: 00 02-18 17:27 :00 No 4mg 4 mg, Slow IV Push, ONCE, 1 dose, On 02/18/22 at 1215, [facility] morpHINE (2 mg/mL) injection 4 mg 01-18 15:15: 00 01-18 14:49 :00 No 4mg 4 mg, Slow IV Push, ONCE, 1 dose, On Kathie 01/18/22 at 1015, [facility] [facility] ondansetron (ZOFRAN (PF)) injection 4 mg 01-18 13:30: 00 01-18 13:33 :00 No 4mg 4 mg, Slow IV Push, ONCE, 1 dose, On Kathie 01/18/22 at 0830, [facility] morpHINE (4 mg/mL) injection 4 mg 01-18 13:30: 00 01-18 13:34 :00 No 4mg 4 mg, Slow IV Push, ONCE, 1 dose, On Kathie 01/18/22 at 0830, [facility] morpHINE (4 mg/mL) injection 4 mg 01-18 12:30: 00 01-18 11:39 :00 No 4mg 4 mg, Slow IV Push, ONCE, 1 dose, On Kathie 01/18/22 at 0730, [facility] famotidine (PEPCID (PF)) injection 20 mg 01-18 11:30: 00 01-18 10:52 :00 No 20mg 20 mg, Slow IV Push, ONCE, 1 dose, On Kathie 01/18/22 at 0630, [facility] ondansetron (ZOFRAN (PF)) injection 4 mg 01-18 11:30: 00 01-18 10:52 :00 No 4mg 4 mg, Slow IV Push, ONCE, 1 dose, On Kathie 01/18/22 at 0630, [facility] iodixanoL (VISIPAQUE 270-150 mL) injection 80 mL 01-18 11:21: 00 01-18 11:15 :00 No [id number] 80mL 80 mL, Intravenou s, ONCE, 1 [...] 01-18 00:00: 00 02-27 00:00 :00 No [id number] 4mg Take 1 tablet by mouth every 8 (eight) hours as needed for Nausea and Vomiting (N/V). [facility] ibuprofen 600 mg tablet 01-18 00:00: 00 02-27 00:00 :00 No [id number] 600mg Take 1 tablet by mouth every 6 (six) hours as needed for Pain (scale 4-6). [facility] predniSONE 20 mg tablet 01-16 00:00: 00 01-24 04:59 :00 No [id number] 40mg Take 2 tablets by mouth in the morning for 7 days. [facility] morpHINE (4 mg/mL) injection 4 mg 01-15 16:15: 00 01-15 15:28 :00 No 4mg 4 mg, Slow IV Push, ONCE, 1 dose, On 01/15/22 at 1115, [place] [facility] proMETHazin e (PHENERGAN) 12.5 mg in NaCl 0.9% (NS) 50 mL IV piggyback 01-15 15:30: 00 01-15 15:28 :00 No 12.5mg 12.5 mg, IV Piggyback, ONCE, 1 dose, On Sat01/15/22 at 1030, [facility] NaCl 0.9% (NS) bolus infusion 1,000 mL 01-15 15:00: 00 01-15 15:38 :00 No 1000mL at 999 mL/hr, 1,000 mL, IV Infusion, ONCE, 1 dose, On Sat01/15/22 at 1000, [facility] morpHINE (4 mg/mL) injection 4 mg 01-15 15:00: 00 01-15 14:37 :00 No 4mg 4 mg, Slow IV Push, ONCE, 1 dose, On Sat01/15/22 at 1000, [facility] ondansetron (ZOFRAN (PF)) injection 8 mg 01-15 14:15: 00 01-15 14:37 :00 No 8mg 8 mg, Slow IV Push, ONCE, 1 dose, On Sat01/15/22 at 0915, [facility] dexamethaso ne sod phos PF injection 10 mg 01-15 14:15: 00 01-15 14:37 :00 No 10mg 10 mg, Slow IV Push, ONCE, 1 dose, On Sat01/15/22 at 0915, 1 mL [facility] proMETHazin e 25 mg tablet 01-15 00:00: 00 02-27 00:00 :00 No [id number] 25mg Take 1 tablet by mouth every [...] MINE (BENADRYL) injection 25 mg 01-08 23:45: 01-08 23:51 :00 No 25mg 25 mg, [...] 01-08 00:00: 00 04-07 00:00 :00 No [id number] 650mg Take 1 tablet by mouth every 8 (eight) hours as needed for Pain. [facility] ondansetron 4 mg disintegrat ing tablet 01-08 00:00: 00 02-27 00:00 :00 No [id number] 4mg Take 1 tablet by mouth every 8 (eight) hours as needed for Nausea and Vomiting (N/V). [facility] ketorolac 10 mg tablet 01-08 00:00: 00 02-27 00:00 :00 No [id number] 10mg Take 1 tablet by mouth every 6 (six) hours as needed for Pain (scale 4-6) or Pain (scale 7-10). [facility] metaxalone (SKELAXIN) 800 mg tablet 829 00:00: 00 02-27 00:00 :00 No [id number] 800mg Take 1 tablet by mouth in [...] 12-12 00:00: 00 02-27 00:00 :00 No [id number] 50mg Take 1 tablet by mouth at bedtime. [facility] SERTraline (ZOLOFT) 50 mg tablet 12-12 00:00: 00 02-27 00:00 :00 No [id number] 50mg Take 1 tablet by mouth in the morning. [facility] sulfamethox azole-trime thoprim (BACTRIM DS) 800-160 mg per tablet 12-12 00:00: 00 12-16 04:59 :00 No [id number] 1{tbl} Take 1 tablet by mouth in the morning and 1 tablet in the evening. Do all this for 3 days. [facility] ibuprofen 600 mg tablet 7-15 00:00: 00 02-27 00:00 :00 No [id number] 600mg Take 1 tablet by mouth every [...] 11-18 00:00: 00 03-24 00:00 :00 No [id number] 5mL Take 5 mL by mouth 4 (four) times daily as needed for Congestion /Allergies or Cough. [facility] naproxen 500 mg tablet 11-18 00:00: 00 02-27 00:00 :00 No [id number] 500mg Take 1 tablet by mouth every 8 (eight) hours as needed for Pain (scale 4-6). [facility] cyclobenzap rine 10 mg tablet 11-18 00:00: 00 02-27 00:00 :00 No [id number] 10mg Take 1 tablet by mouth at bedtime as needed for Muscle Spasms. [facility] ibuprofen 100 mg/5 mL oral suspension 10-25 00:00: 00 02-27 00:00 :00 No [id number] 605mg Take 30.25 mL by mouth every 6 (six) hours as needed for Pain (scale 4-6) or Temp > 38.5 C. [facility] acetaminoph en 160 mg/5 mL liquid 10-25 00:00: 00 12-12 00:00 :00 No [id number] 608mg Take 19 mL by mouth every 6 (six) hours as needed for Fever. [facility] DULoxetine 60 mg capsule 10-06 00:00: 00 02-27 00:00 :00 No [facility] traZODone 50 mg tablet 10-06 00:00: 00 12-12 00:00 :00 No [facility] mometasone 50 mcg/actuati on nasal spray 09-28 00:00: 00 02-27 00:00 :00 No [id number] 1{spray } Use 1 Saucier in each nostril 2 (two) times daily. [facility] cetirizine (ZYRTEC) 10 mg tablet 09-25 00:00: 00 02-27 00:00 :00 No [id number] 10mg Take 1 tablet by mouth daily. [...] 4-05 00:00: 00 09-12 00:00 :00 No [id number] 25mg Take 1 tablet by mouth every 6 (six) hours as needed for Nausea and Vomiting (N/V). [facility] traMADoL 50 mg tablet 4-05 00:00: 00 09-12 00:00 :00 No [id number] 50mg Take 1 tablet by mouth every 6 (six) hours as needed (pain). Indication s: acute pain [facility] cyclobenzap rine 10 mg tablet 3-28 00:00: 00 08-22 04:59 :00 No [id number] 10mg Take 1 tablet by mouth 3 (three) times daily for 14 days. [facility] ibuprofen 800 mg tablet 3-28 00:00: 00 08-22 04:59 :00 No [id number] 800mg Take 1 tablet by mouth every 6 (six) hours as needed for Pain (scale 1-3) for up to 14 days. [facility] diclofenac 75 mg EC tablet 08-01 00:00: 00 09-12 00:00 :00 No [facility] orphenadrin e 100 mg SR tablet 08-01 00:00: 00 09-12 00:00 :00 No [facility] divalproex 125 mg EC tablet 3 00:00: 00 09-12 00:00 :00 No [id number] 125mg Take 1 tablet by mouth every 12 (twelve) hours. [facility] divalproex Sprinkles 125 mg SPRINKLE capsule 3 00:00: 00 09-12 00:00 :00 No [facility] ibuprofen 600 mg tablet 3-07 00:00: 00 08-01 04:59 :00 No [id number] 600mg Take 1 tablet by mouth every 6 (six) hours as needed for Temp > 38.5 C for up to 14 days. [facility] acetaminoph en-codeine 300-30 mg tablet 1-30 00:00: 00 09-12 00:00 :00 No TAKE 1 TABLET BY MOUTH EVERY 4 HOURS NEEDED FOR PAIN FOR 2 DAYS [facility] fluticasone propionate 110 mcg/actuati on inhaler - 00:00: 00 09-28 00:00 :00 No [id number] 2{puff} Inhale 2 Puffs every 12 (twelve) hours. [facility] benzonatate (TESSALON PERLES) 100 mg capsule 1-13 00:00: 00 09-25 00:00 :00 No [id number] 100mg Take 1 capsule by mouth every [...] 2020-05 00:00: 00 05-25 00:00 :00 No [id number] 500mg Take 1 tablet by mouth every 6 (six) hours as needed (MUSCLE SPASM). [facility] vitamin B-12 (VITAMIN B-12) 500 mcg tablet 2020-05 00:00: 00 09-12 00:00 :00 No [id number] 500ug Take 1 tablet by mouth daily. [facility] methylPREDN ISolone 4 mg tablets 2020-05 00:00: 00 05-25 00:00 :00 No [id number] Follow package directions [facility] fluticasone propion-chel meteroL 115-21 mcg/actuati on inhaler 02-09 00:00: 00 05-25 00:00 :00 No [id number] 2{puff} Inhale 2 Puffs 2 (two) times daily. Rinse mouth after each use. [facility] albuterol 2.5 mg /3 mL (0.083 %) nebulizer solution 02-09 00:00: 00 05-25 00:00 :00 No [id number] 2.5mg Inhale 3 mL every 6 (six) hours as needed for Wheezing or Shortness of Breath. [facility] methocarbam oL (ROBAXIN) 500 mg tablet 02-09 00:00: 00 05-02 00:00 :00 No [id number] 500mg Take 1 tablet by mouth every 6 (six) hours as needed (MUSCLE SPASM). [facility] bromphenira mine-pseudo ephedrine-D M (BROMFED DM) 2-30-10 mg/5 mL syrup 01-31 00:00: 00 02-09 00:00 :00 No [id number] 5mL Take 5 mL by mouth 4 (four) times daily as needed for Cough. [facility] methylPREDN ISolone (MEDROL, ANABELA,) 4 mg tablets 01-20 00:00: 00 02-09 00:00 :00 No [id number] Take by mouth SEE-INSTRU CTIONS. follow package directions [facility] albuterol 90 mcg/actuati on inhaler 01-12 00:00: 00 05-25 00:00 :00 No [id number] 2{puff} Inhale 2 Puffs every 4 (four) hours as needed for Wheezing or Shortness of Breath. [facility] benzonatate 100 mg capsule 01-12 00:00: 00 02-19 00:00 :00 No [id number] 100mg Take 1 capsule by mouth 3 (three) times daily as needed for Cough. [facility] losartan 50 mg tablet 8 00:00: 00 02-09 00:00 :00 No 50mg Take 1 tablet by mouth 2 (two) times daily. [facility] topiramate 25 mg tablet 11-22 00:00: 00 12-26 00:00 :00 No 25mg Take 1 tablet by mouth 2 (two) times daily. [facility] OXcarbazepi ne 150 mg tablet 11-21 00:00: 00 02-09 00:00 :00 No [facility] FLUoxetine 40 mg capsule 11-21 00:00: 00 12-26 00:00 :00 No [facility] traZODone 100 mg tablet 7-12 00:00: 00 12-26 00:00 :00 No [facility] dicyclomine 20 mg tablet 6-10 00:00: 00 12-26 00:00 :00 No [id number] 20mg Take 1 tablet by mouth 4 (four) times daily. [facility] proMETHazin e 25 mg tablet 6-10 00:00: 00 12-26 00:00 :00 No [id number] 25mg Take 1 tablet by mouth every 6 (six) hours as needed for Nausea and Vomiting (N/V). [facility] acetaminoph en-codeine 300-30 mg tablet 605 00:00: 00 12-26 00:00 :00 No TAKE 2 TABLETS BY MOUTH EVERY 6 HOURS NEEDED FOR PAIN [facility] oxybutynin (DITROPAN XL) 10 mg 24 hr tablet 30 00:00: 00 12-26 00:00 :00 No [id number] 10mg Take 1 tablet by mouth daily. [facility] ondansetron (ZOFRAN ODT) 4 mg disintegrat ing tablet 30 00:00: 00 12-26 00:00 :00 No [id number] 4mg Take 1 tablet by mouth every 8 (eight) hours as needed for Nausea and Vomiting (N/V). [facility] ciprofloxac in HCl 500 mg tablet 530 00:00: 00 11-22 00:00 :00 No [id number] 500mg Take 1 tablet by mouth 2 (two) times daily. [facility] predniSONE 20 mg tablet 25 00:00: 00 11-22 00:00 :00 No [id number] 20mg Take 1 tablet by mouth daily. Days 1-2: 3 pills (60 mg). Days 3-4: 2 pills (40 mg). Days 5-6: 1 pill (20 mg). Days 7-8: 1/2 pill (10 mg). Then stop [facility] mupirocin 2 % ointment 09-29 00:00: 00 12-26 00:00 :00 No [id number] Apply to both nostrils at bedtime [facility] naproxen sodium (ANAPROX DS) 550 mg tablet 09-28 00:00: 00 12-26 00:00 :00 No [id number] 550mg Take 1 tablet by mouth 2 (two) times daily with meals. [facility] losartan 25 mg tablet 09-16 00:00: 00 12-22 00:00 :00 No 25mg Take 1 tablet by mouth 2 (two) times daily. [facility] nadoloL 20 mg tablet 09-16 00:00: 00 12-22 00:00 :00 No [id number] Please take Nadalol 40 mg QAM [facility] LOESTRIN FE (LOESTRIN FE /20) 1 mg-20 mcg (21)/75 mg (7) tablet 09-06 00:00: 00 02-09 00:00 :00 No [id number] 1{tbl} Take 1 tablet by mouth daily. [facility] FLUoxetine 20 mg capsule 09-06 00:00: 00 11-22 00:00 :00 No [id number] 20mg Take 1 capsule by mouth daily. [facility] traZODone 50 mg tablet 09-06 00:00: 00 11-22 00:00 :00 No [id number] 50mg Take 1 tablet by mouth at bedtime. [facility] nadoloL 20 mg tablet 08-31 00:00: 00 09-16 00:00 :00 No [id number] Please take Nadalol 40 mg QAM and 20 mg QPM [facility] methocarbam oL (ROBAXIN) 500 mg tablet 08-18 00:00: 00 09-30 00:00 :00 No [id number] 500mg Take 1 tablet by mouth every 6 (six) hours as needed (MUSCLE SPASM). [facility] traMADoL (ULTRAM) 50 mg tablet 08-18 00:00: 00 09-30 00:00 :00 No [id number] 50mg Take 1 tablet by mouth every 6 (six) hours as needed for Pain (scale 7-10). Indication s: acute pain [facility] ibuprofen 800 mg tablet 08-14 00:00: 00 11-22 00:00 :00 No TAKE 1 TABLET BY MOUTH EVERY 12 HOURS NEEDED FOR PAIN [facility] ondansetron (ZOFRAN ODT) 4 mg disintegrat ing tablet 08-01 00:00: 00 09-30 00:00 :00 No [id number] 4mg Take 1 tablet by mouth every 8 (eight) hours as needed for Nausea and Vomiting (N/V). [facility] ketorolac 10 mg tablet 08-01 00:00: 00 09-30 00:00 :00 No [id number] 10mg Take 1 tablet by mouth every 6 (six) hours as needed for Pain (scale 4-6). [facility] ciprofloxac in HCl 250 mg tablet 08-01 00:00: 00 09-30 00:00 :00 No [id number] 250mg Take 1 tablet by mouth 2 (two) times daily. [facility] lidocaine 5 % (700 mg/patch) patch 07-22 00:00: 00 09-30 00:00 :00 No [id number] 1{patch } Apply 1 Patch to area(s) every 24 (twenty-fo ur) hours as needed for Localized pain. [facility] topiramate 25 mg tablet 05-17 00:00: 00 11-22 00:00 :00 No 25mg Take 1 tablet by mouth 2 (two) times daily. [facility] metoprolol succinate XL 25 mg 24 hr tablet 2019-05 00:00: 00 06-15 00:00 :00 No [id number] 12.5mg Take 0.5 tablets by mouth 2 (two) times daily for 90 days. [facility] FLUoxetine 20 mg capsule 2019-05 00:00: 00 09-06 00:00 :00 No 20mg Take 20 mg by mouth daily. [facility] norgestimat e-ethinyl estradiol 0.25-35 mg-mcg per tablet 11-17 00:00: 04-15 00:00 :00 No [id number] 1{tbl} Take 1 tablet by mouth daily. [facility] buPROPion XL (WELLBUTRIN XL) 150 mg 24 hr tablet 08-12 00:00: 01-04 00:00 :00 No [id number] 150mg Take 1 tablet by mouth daily. [facility] acetaminoph en 325 mg tablet 07-22 00:00: 01-04 00:00 :00 No [id number] 650mg Take 2 tablets by mouth every 6 (six) hours as needed for Pain (scale 1-3) or Pain (scale 4-6). [facility] vitamin w/FA tablet 07-22 00:00: 01-04 00:00 :00 No [id number] 1{tbl} Take 1 tablet by mouth daily. [facility] docusate calcium 240 mg capsule 07-22 00:00: 01-04 00:00 :00 No [id number] 240mg Take 1 capsule by mouth once daily as needed for Constipati on. [facility] ferrous sulfate 325 mg (65 mg iron) tablet 07-22 00:00: 01-04 00:00 :00 No [id number] 325mg Take 1 tablet by mouth 2 (two) times daily. [facility] ibuprofen 600 mg tablet 07-22 00:00: 01-04 00:00 :00 No [id number] 600mg Take 1 tablet by mouth every 6 (six) hours as needed (Pain). Take with food or milk. [facility] ALBUTEROL 90 mcg/actuati on inhaler 1-14 00:00: 00 05-01 00:00 :00 No [id number] 103 INHALE 2 PUFFS BY MOUTH EVERY 6 HOURS NEEDED FOR WHEEZING FOR SHORTNESS OF BREATH [facility] buPROPion SR (WELLBUTRIN SR) 150 mg SR tablet 05-21 00:00: 00 01-04 00:00 :00 No [id number] 150mg Take 1 tablet by mouth 2 (two) times daily. [facility] busPIRone 10 mg tablet 05-21 00:00: 00 01-04 00:00 :00 No [id number] 109 10mg Take 1 tablet by mouth 3 (three) times daily. [facility] Immunizations Ordered Immunization Name Filled Immunization Name Date Status Comments Source Influenza Virus Vaccine Quad IM, Preserv and ABX Free 6 MO-64 YRS 2022-02-27 00:00:00 Completed [facility] Influenza Virus Vaccine Quad IM, Preserv and ABX Free 6 MO-64 YRS 2022-02-27 00:00:00 Completed [facility] Influenza Virus Vaccine Quad IM, Preserv and ABX Free 6 MO-64 YRS 2022-02-27 00:00:00 Completed [facility] Influenza Virus Vaccine Quad IM, Preserv and ABX Free 6 MO-64 YRS 2022-02-27 00:00:00 Completed [facility] Influenza Virus Vaccine Quad IM, Preserv and ABX Free 6 MO-64 YRS 2022-02-27 00:00:00 Completed [facility] Influenza Virus Vaccine Quad IM, Preserv and ABX Free 6 MO-64 YRS 2022-02-27 00:00:00 Completed [facility] Influenza Virus Vaccine Quad IM, Preserv and ABX Free 6 MO-64 YRS 2022-02-27 00:00:00 Completed [facility] Influenza Virus Vaccine Quad IM, Preserv and ABX Free 6 MO-64 YRS 2022-02-27 00:00:00 Completed [facility] Influenza Virus Vaccine Quad IM, Preserv and ABX Free 6 MO-64 YRS 2022-02-27 00:00:00 Completed [facility] Influenza Virus Vaccine Quad IM, Preserv and ABX Free 6 MO-64 YRS 2022-02-27 00:00:00 Completed [facility] Influenza Virus Vaccine Quad IM, Preserv and ABX Free 6 MO-64 YRS 2022-02-27 00:00:00 Completed [facility] Influenza Virus Vaccine Quad IM, Preserv and ABX Free 6 MO-64 YRS 2022-02-27 00:00:00 Completed [facility] Influenza Virus Vaccine Quad IM, Preserv and ABX Free 6 MO-64 YRS 2022-02-27 00:00:00 Completed [facility] Influenza Virus Vaccine Quad IM, Preserv and ABX Free 6 MO-64 YRS 2022-02-27 00:00:00 Completed [facility] Influenza Virus Vaccine Quad IM, Preserv and ABX Free 6 MO-64 YRS 2022-02-27 00:00:00 Completed [facility] Influenza Virus Vaccine Quad IM, Preserv and ABX Free 6 MO-64 YRS 2022-02-27 00:00:00 Completed [facility] Influenza Virus Vaccine Quad IM, Preserv and ABX Free 6 MO-64 YRS 2022-02-27 00:00:00 Completed [facility] Influenza Virus Vaccine Quad IM, Preserv and ABX Free 6 MO-64 YRS 2022-02-27 00:00:00 Completed [facility] Influenza Virus Vaccine Quad IM, Preserv and ABX Free 6 MO-64 YRS 2022-02-27 00:00:00 Completed [facility] Influenza Virus Vaccine Quad IM, Preserv and ABX Free 6 MO-64 YRS 2022-02-27 00:00:00 Completed [facility] Influenza Virus Vaccine Quad IM, Preserv and ABX Free 6 MO-64 YRS 2022-02-27 00:00:00 Completed [facility] Influenza Virus Vaccine Quad IM, Preserv and ABX Free 6 MO-64 YRS 2022-02-27 00:00:00 Completed [facility] Influenza Virus Vaccine Quad IM, Preserv and ABX Free 6 MO-64 YRS 2022-02-27 00:00:00 Completed [facility] Influenza Virus Vaccine Quad IM, Preserv and ABX Free 6 MO-64 YRS 2022-02-27 00:00:00 Completed [facility] Influenza Virus Vaccine Quad IM, Preserv and ABX Free 6 MO-64 YRS 2022-02-27 00:00:00 Completed [facility] Influenza Virus Vaccine Quad IM, Preserv and ABX Free 6 MO-64 YRS 2022-02-27 00:00:00 Completed [facility] Influenza Virus Vaccine Quad IM, Preserv and ABX Free 6 MO-64 YRS 2022-02-27 00:00:00 Completed [facility] Influenza Virus Vaccine Quad IM, Preserv and ABX Free 6 MO-64 YRS 2022-02-27 00:00:00 Completed [facility] Influenza Virus Vaccine Quad IM, Preserv and ABX Free 6 MO-64 YRS 2022-02-27 00:00:00 Completed [facility] Influenza Virus Vaccine Quad IM, Preserv and ABX Free 6 MO-64 YRS 2022-02-27 00:00:00 Completed [facility] Influenza Virus Vaccine Quad IM, Preserv and ABX Free 6 MO-64 YRS 2022-02-27 00:00:00 Completed [facility] Influenza Virus Vaccine Quad IM, Preserv and ABX Free 6 MO-64 YRS 2022-02-27 00:00:00 Completed [facility] Influenza Virus Vaccine Quad IM, Preserv and ABX Free 6 MO-64 YRS 2022-02-27 00:00:00 Completed [facility] Influenza Virus Vaccine Quad IM, Preserv and ABX Free 6 MO-64 YRS 2022-02-27 00:00:00 Completed [facility] Influenza Virus Vaccine Quad IM, Preserv and ABX Free 6 MO-64 YRS 2022-02-27 00:00:00 Completed [facility] Influenza Virus Vaccine Quad IM, Preserv and ABX Free 6 MO-64 YRS 2022-02-27 00:00:00 Completed [facility] Influenza Virus Vaccine Quad IM, Preserv and ABX Free 6 MO-64 YRS 2022-02-27 00:00:00 Completed [facility] Influenza Virus Vaccine Quad IM, Preserv and ABX Free 6 MO-64 YRS 2022-02-27 00:00:00 Completed [facility] Influenza Virus Vaccine Quad IM, Preserv and ABX Free 6 MO-64 YRS 2022-02-27 00:00:00 Completed [facility] Influenza Virus Vaccine Quad IM, Preserv and ABX Free 6 MO-64 YRS 2022-02-27 00:00:00 Completed [facility] Influenza Virus Vaccine Quad IM, Preserv and ABX Free 6 MO-64 YRS 2022-02-27 00:00:00 Completed [facility] Influenza Virus Vaccine Quad IM, Preserv and ABX Free 6 MO-64 YRS (FLUCELVAX) 2022-02-27 00:00:00 Completed [facility] Influenza Virus Vaccine Quad IM, Preserv and ABX Free 6 MO-64 YRS (FLUCELVAX) 2022-02-27 00:00:00 Completed [facility] Influenza Virus Vaccine Quad IM, Preserv and ABX Free 6 MO-64 YRS (FLUCELVAX) 2022-02-27 00:00:00 Completed [facility] Influenza Virus Vaccine Quad .5 mL IM 6+ MO 2022-02-21 00:00:00 Completed [facility] Influenza Virus Vaccine Quad .5 mL IM 6+ MO 2022-02-21 00:00:00 Completed [facility] Influenza Virus Vaccine Quad .5 mL IM 6+ MO 2022-02-21 00:00:00 Completed [facility] Influenza Virus Vaccine Quad .5 mL IM 6+ MO 2022-02-21 00:00:00 Completed [facility] Influenza Virus Vaccine Quad .5 mL IM 6+ MO 2022-02-21 00:00:00 Completed [facility] Influenza Virus Vaccine Quad .5 mL IM 6+ MO 2022-02-21 00:00:00 Completed [facility] Influenza Virus Vaccine Quad .5 mL IM 6+ MO 2022-02-21 00:00:00 Completed [facility] Influenza Virus Vaccine Quad .5 mL IM 6+ MO 2022-02-21 00:00:00 Completed [facility] Influenza Virus Vaccine Quad .5 mL IM 6+ MO 2022-02-21 00:00:00 Completed [facility] Influenza Virus Vaccine Quad .5 mL IM 6+ MO 2022-02-21 00:00:00 Completed [facility] Influenza Virus Vaccine Quad .5 mL IM 6+ MO 2022-02-21 00:00:00 Completed [facility] Influenza Virus Vaccine Quad .5 mL IM 6+ MO 2022-02-21 00:00:00 Completed [facility] Influenza Virus Vaccine Quad .5 mL IM 6+ MO (FLUZONE/FLULAVAL/F LUARIX) 2022-02-21 00:00:00 Completed [facility] Influenza Virus Vaccine Quad .5 mL IM 6+ MO (FLUZONE/FLULAVAL/F LUARIX) 2022-02-21 00:00:00 Completed [facility] Influenza Virus Vaccine Quad .5 mL IM 6+ MO (FLUZONE/FLULAVAL/F LUARIX) 2022-02-21 00:00:00 Completed [facility] Influenza Virus Vaccine 2021-06-11 00:00:00 Completed [facility] Influenza Virus Vaccine 2021-06-11 00:00:00 Completed [facility] Influenza Virus Vaccine 2021-06-11 00:00:00 Completed [facility] Influenza Virus Vaccine 2021-06-11 00:00:00 Completed [facility] Influenza Virus Vaccine 2021-06-11 00:00:00 Completed [facility] Influenza Virus Vaccine 2021-06-11 00:00:00 Completed [facility] Influenza Virus Vaccine 2021-06-11 00:00:00 Completed [facility] Influenza Virus Vaccine 2021-06-11 00:00:00 Completed [facility] Influenza Virus Vaccine 2021-06-11 00:00:00 Completed [facility] Influenza Virus Vaccine 2021-06-11 00:00:00 Completed [facility] Influenza Virus Vaccine 2021-06-11 00:00:00 Completed [facility] Influenza Virus Vaccine 2021-06-11 00:00:00 Completed [facility] Influenza Virus Vaccine 2021-06-11 00:00:00 Completed [facility] Influenza Virus Vaccine 2021-06-11 00:00:00 Completed [facility] Influenza Virus Vaccine 2021-06-11 00:00:00 Completed [facility] Influenza Virus Vaccine 2021-06-11 00:00:00 Completed [facility] Influenza Virus Vaccine 2021-06-11 00:00:00 Completed [facility] Influenza Virus Vaccine 2021-06-11 00:00:00 Completed [facility] Influenza Virus Vaccine 2021-06-11 00:00:00 Completed [facility] Influenza Virus Vaccine 2021-06-11 00:00:00 Completed [facility] Influenza Virus Vaccine 2021-06-11 00:00:00 Completed [facility] Influenza Virus Vaccine 2021-06-11 00:00:00 Completed [facility] Influenza Virus Vaccine 2021-06-11 00:00:00 Completed [facility] Influenza Virus Vaccine 2021-06-11 00:00:00 Completed [facility] Influenza Virus Vaccine 2021-06-11 00:00:00 Completed [facility] Influenza Virus Vaccine 2021-06-11 00:00:00 Completed [facility] Influenza Virus Vaccine 2021-06-11 00:00:00 Completed [facility] Influenza Virus Vaccine 2021-06-11 00:00:00 Completed [facility] Influenza Virus Vaccine 2021-06-11 00:00:00 Completed [facility] Influenza Virus Vaccine 2021-06-11 00:00:00 Completed [facility] Influenza Virus Vaccine 2021-06-11 00:00:00 Completed [facility] Influenza Virus Vaccine 2021-06-11 00:00:00 Completed [facility] Influenza Virus Vaccine 2021-06-11 00:00:00 Completed [facility] Influenza Virus Vaccine 2021-06-11 00:00:00 Completed [facility] Influenza Virus Vaccine 2021-06-11 00:00:00 Completed [facility] Influenza Virus Vaccine 2021-06-11 00:00:00 Completed [facility] Influenza Virus Vaccine 2021-06-11 00:00:00 Completed [facility] Influenza Virus Vaccine 2021-06-11 00:00:00 Completed [facility] Influenza Virus Vaccine 2021-06-11 00:00:00 Completed [facility] Influenza Virus Vaccine 2021-06-11 00:00:00 Completed [facility] Influenza Virus Vaccine 2021-06-11 00:00:00 Completed [facility] Influenza Virus Vaccine Quad .5 mL IM 6+ MO 2021-06-11 00:00:00 Completed [facility] Influenza Virus Vaccine 2021-06-11 00:00:00 Completed [facility] Influenza Virus Vaccine Quad .5 mL IM 6+ MO 2021-06-11 00:00:00 Completed [facility] Influenza Virus Vaccine 2021-06-11 00:00:00 Completed [facility] Influenza Virus Vaccine Quad .5 mL IM 6+ MO 2021-06-11 00:00:00 Completed [facility] Influenza Virus Vaccine 2021-06-11 00:00:00 Completed [facility] Influenza Virus Vaccine Quad .5 mL IM 6+ MO 2021-06-11 00:00:00 Completed [facility] Influenza Virus Vaccine 2021-06-11 00:00:00 Completed [facility] Influenza Virus Vaccine Quad .5 mL IM 6+ MO 2021-06-11 00:00:00 Completed [facility] Influenza Virus Vaccine 2021-06-11 00:00:00 Completed [facility] Influenza Virus Vaccine Quad .5 mL IM 6+ MO 2021-06-11 00:00:00 Completed [facility] Influenza Virus Vaccine 2021-06-11 00:00:00 Completed [facility] Influenza Virus Vaccine Quad .5 mL IM 6+ MO 2021-06-11 00:00:00 Completed [facility] Influenza Virus Vaccine 2021-06-11 00:00:00 Completed [facility] Influenza Virus Vaccine Quad .5 mL IM 6+ MO 2021-06-11 00:00:00 Completed [facility] Influenza Virus Vaccine 2021-06-11 00:00:00 Completed [facility] Influenza Virus Vaccine Quad .5 mL IM 6+ MO 2021-06-11 00:00:00 Completed [facility] Influenza Virus Vaccine 2021-06-11 00:00:00 Completed [facility] Influenza Virus Vaccine Quad .5 mL IM 6+ MO 2021-06-11 00:00:00 Completed [facility] Influenza Virus Vaccine 2021-06-11 00:00:00 Completed [facility] Influenza Virus Vaccine Quad .5 mL IM 6+ MO 2021-06-11 00:00:00 Completed [facility] Influenza Virus Vaccine 2021-06-11 00:00:00 Completed [facility] Influenza Virus Vaccine Quad .5 mL IM 6+ MO 2021-06-11 00:00:00 Completed [facility] Influenza Virus Vaccine 2021-06-11 00:00:00 Completed [facility] Influenza Virus Vaccine Quad .5 mL IM 6+ MO (FLUZONE/FLULAVAL/F LUARIX) 2021-06-11 00:00:00 Completed [facility] Influenza Virus Vaccine 2021-06-11 00:00:00 Completed [facility] Influenza Virus Vaccine Quad .5 mL IM 6+ MO (FLUZONE/FLULAVAL/F LUARIX) 2021-06-11 00:00:00 Completed [facility] Influenza Virus Vaccine 2021-06-11 00:00:00 Completed [facility] Influenza Virus Vaccine Quad .5 mL IM 6+ MO (FLUZONE/FLULAVAL/F LUARIX) 2021-06-11 00:00:00 Completed [facility] Influenza Virus Vaccine 2020-05-19 00:00:00 Completed [facility] Influenza Virus Vaccine 2020-05-19 00:00:00 Completed [facility] Influenza Virus Vaccine 2020-05-19 00:00:00 Completed [facility] Influenza Virus Vaccine 2020-05-19 00:00:00 Completed [facility] Influenza Virus Vaccine 2020-05-19 00:00:00 Completed [facility] Influenza Virus Vaccine 2020-05-19 00:00:00 Completed [facility] Influenza Virus Vaccine 2020-05-19 00:00:00 Completed [facility] Influenza Virus Vaccine 2020-05-19 00:00:00 Completed [facility] Influenza Virus Vaccine 2020-05-19 00:00:00 Completed [facility] Influenza Virus Vaccine 2020-05-19 00:00:00 Completed [facility] Influenza Virus Vaccine 2020-05-19 00:00:00 Completed [facility] Influenza Virus Vaccine 2020-05-19 00:00:00 Completed [facility] Influenza Virus Vaccine 2020-05-19 00:00:00 Completed [facility] Influenza Virus Vaccine 2020-05-19 00:00:00 Completed [facility] Influenza Virus Vaccine 2020-05-19 00:00:00 Completed [facility] Influenza Virus Vaccine 2020-05-19 00:00:00 Completed [facility] Influenza Virus Vaccine 2020-05-19 00:00:00 Completed [facility] Influenza Virus Vaccine 2020-05-19 00:00:00 Completed [facility] Influenza Virus Vaccine 2020-05-19 00:00:00 Completed [facility] Influenza Virus Vaccine 2020-05-19 00:00:00 Completed [facility] Influenza Virus Vaccine 2020-05-19 00:00:00 Completed [facility] Influenza Virus Vaccine 2020-05-19 00:00:00 Completed [facility] Influenza Virus Vaccine 2020-05-19 00:00:00 Completed [facility] Influenza Virus Vaccine 2020-05-19 00:00:00 Completed [facility] Influenza Virus Vaccine 2020-05-19 00:00:00 Completed [facility] Influenza Virus Vaccine 2020-05-19 00:00:00 Completed [facility] Influenza Virus Vaccine 2020-05-19 00:00:00 Completed [facility] Influenza Virus Vaccine 2020-05-19 00:00:00 Completed [facility] Influenza Virus Vaccine 2020-05-19 00:00:00 Completed [facility] Influenza Virus Vaccine 2020-05-19 00:00:00 Completed [facility] Influenza Virus Vaccine 2020-05-19 00:00:00 Completed [facility] Influenza Virus Vaccine 2020-05-19 00:00:00 Completed [facility] Influenza Virus Vaccine 2020-05-19 00:00:00 Completed [facility] Influenza Virus Vaccine 2020-05-19 00:00:00 Completed [facility] Influenza Virus Vaccine 2020-05-19 00:00:00 Completed [facility] Influenza Virus Vaccine 2020-05-19 00:00:00 Completed [facility] Influenza Virus Vaccine 2020-05-19 00:00:00 Completed [facility] Influenza Virus Vaccine 2020-05-19 00:00:00 Completed [facility] Influenza Virus Vaccine 2020-05-19 00:00:00 Completed [facility] Influenza Virus Vaccine 2020-05-19 00:00:00 Completed [facility] Influenza Virus Vaccine 2020-05-19 00:00:00 Completed [facility] Influenza Virus Vaccine 2020-05-19 00:00:00 Completed [facility] Influenza Virus Vaccine 2020-05-19 00:00:00 Completed [facility] Influenza Virus Vaccine 2020-05-19 00:00:00 Completed [facility] Influenza Virus Vaccine 2020-05-19 00:00:00 Completed [facility] Influenza Virus Vaccine 2020-05-19 00:00:00 Completed [facility] Influenza Virus Vaccine 2020-05-19 00:00:00 Completed [facility] Influenza Virus Vaccine 2020-05-19 00:00:00 Completed [facility] Influenza Virus Vaccine 2020-05-19 00:00:00 Completed [facility] Influenza Virus Vaccine 2020-05-19 00:00:00 Completed [facility] Influenza Virus Vaccine 2020-05-19 00:00:00 Completed [facility] Influenza Virus Vaccine 2020-05-19 00:00:00 Completed [facility] Influenza Virus Vaccine 2020-05-19 00:00:00 Completed [facility] Influenza Virus Vaccine 2020-05-19 00:00:00 Completed [facility] Influenza Virus Vaccine 2020-05-19 00:00:00 Completed [facility] Influenza Virus Vaccine Recomb Quad IM, Preserv and ABX Free 18-64 YRS 2020-05-16 00:00:00 Completed [facility] Influenza Virus Vaccine Recomb Quad IM, Preserv and ABX Free 18-64 YRS 2020-05-16 00:00:00 Completed [facility] Influenza Virus Vaccine Recomb Quad IM, Preserv and ABX Free 18-64 YRS 2020-05-16 00:00:00 Completed [facility] Influenza Virus Vaccine Recomb Quad IM, Preserv and ABX Free 18-64 YRS 2020-05-16 00:00:00 Completed [facility] Influenza Virus Vaccine Recomb Quad IM, Preserv and ABX Free 18-64 YRS 2020-05-16 00:00:00 Completed [facility] Influenza Virus Vaccine Recomb Quad IM, Preserv and ABX Free 18-64 YRS 2020-05-16 00:00:00 Completed [facility] Influenza Virus Vaccine Recomb Quad IM, Preserv and ABX Free 18-64 YRS 2020-05-16 00:00:00 Completed [facility] Influenza Virus Vaccine Recomb Quad IM, Preserv and ABX Free 18-64 YRS 2020-05-16 00:00:00 Completed [facility] Influenza Virus Vaccine Recomb Quad IM, Preserv and ABX Free 18-64 YRS 2020-05-16 00:00:00 Completed [facility] Influenza Virus Vaccine Recomb Quad IM, Preserv and ABX Free 18-64 YRS 2020-05-16 00:00:00 Completed [facility] Influenza Virus Vaccine Recomb Quad IM, Preserv and ABX Free 18-64 YRS 2020-05-16 00:00:00 Completed [facility] Influenza Virus Vaccine Recomb Quad IM, Preserv and ABX Free 18-64 YRS 2020-05-16 00:00:00 Completed [facility] Influenza Virus Vaccine Recomb Quad IM, Preserv and ABX Free 18-64 YRS 2020-05-16 00:00:00 Completed [facility] Influenza Virus Vaccine Recomb Quad IM, Preserv and ABX Free 18-64 YRS 2020-05-16 00:00:00 Completed [facility] Influenza Virus Vaccine Recomb Quad IM, Preserv and ABX Free 18-64 YRS 2020-05-16 00:00:00 Completed [facility] Influenza Virus Vaccine Recomb Quad IM, Preserv and ABX Free 18-64 YRS 2020-05-16 00:00:00 Completed [facility] Influenza Virus Vaccine Recomb Quad IM, Preserv and ABX Free 18-64 YRS 2020-05-16 00:00:00 Completed [facility] Influenza Virus Vaccine Recomb Quad IM, Preserv and ABX Free 18-64 YRS 2020-05-16 00:00:00 Completed [facility] Influenza Virus Vaccine Recomb Quad IM, Preserv and ABX Free 18-64 YRS 2020-05-16 00:00:00 Completed [facility] Influenza Virus Vaccine Recomb Quad IM, Preserv and ABX Free 18-64 YRS 2020-05-16 00:00:00 Completed [facility] Influenza Virus Vaccine Recomb Quad IM, Preserv and ABX Free 18-64 YRS 2020-05-16 00:00:00 Completed [facility] Influenza Virus Vaccine Recomb Quad IM, Preserv and ABX Free 18-64 YRS 2020-05-16 00:00:00 Completed [facility] Influenza Virus Vaccine Recomb Quad IM, Preserv and ABX Free 18-64 YRS 2020-05-16 00:00:00 Completed [facility] Influenza Virus Vaccine Recomb Quad IM, Preserv and ABX Free 18-64 YRS 2020-05-16 00:00:00 Completed [facility] Influenza Virus Vaccine Recomb Quad IM, Preserv and ABX Free 18-64 YRS 2020-05-16 00:00:00 Completed [facility] Influenza Virus Vaccine Recomb Quad IM, Preserv and ABX Free 18-64 YRS 2020-05-16 00:00:00 Completed [facility] Influenza Virus Vaccine Recomb Quad IM, Preserv and ABX Free 18-64 YRS 2020-05-16 00:00:00 Completed [facility] Influenza Virus Vaccine Recomb Quad IM, Preserv and ABX Free 18-64 YRS 2020-05-16 00:00:00 Completed [facility] Influenza Virus Vaccine Recomb Quad IM, Preserv and ABX Free 18-64 YRS 2020-05-16 00:00:00 Completed [facility] Influenza Virus Vaccine Recomb Quad IM, Preserv and ABX Free 18-64 YRS 2020-05-16 00:00:00 Completed [facility] Influenza Virus Vaccine Recomb Quad IM, Preserv and ABX Free 18-64 YRS 2020-05-16 00:00:00 Completed [facility] Influenza Virus Vaccine Recomb Quad IM, Preserv and ABX Free 18-64 YRS 2020-05-16 00:00:00 Completed [facility] Influenza Virus Vaccine Recomb Quad IM, Preserv and ABX Free 18-64 YRS 2020-05-16 00:00:00 Completed [facility] Influenza Virus Vaccine Recomb Quad IM, Preserv and ABX Free 18-64 YRS 2020-05-16 00:00:00 Completed [facility] Influenza Virus Vaccine Recomb Quad IM, Preserv and ABX Free 18-64 YRS 2020-05-16 00:00:00 Completed [facility] Influenza Virus Vaccine Recomb Quad IM, Preserv and ABX Free 18-64 YRS 2020-05-16 00:00:00 Completed [facility] Influenza Virus Vaccine Recomb Quad IM, Preserv and ABX Free 18-64 YRS 2020-05-16 00:00:00 Completed [facility] Influenza Virus Vaccine Recomb Quad IM, Preserv and ABX Free 18-64 YRS 2020-05-16 00:00:00 Completed [facility] Influenza Virus Vaccine Recomb Quad IM, Preserv and ABX Free 18-64 YRS 2020-05-16 00:00:00 Completed [facility] Influenza Virus Vaccine Recomb Quad IM, Preserv and ABX Free 18-64 YRS 2020-05-16 00:00:00 Completed [facility] Influenza Virus Vaccine Recomb Quad IM, Preserv and ABX Free 18-64 YRS 2020-05-16 00:00:00 Completed [facility] Influenza Virus Vaccine Recomb Quad IM, Preserv and ABX Free 18-64 YRS 2020-05-16 00:00:00 Completed [facility] Influenza Virus Vaccine Recomb Quad IM, Preserv and ABX Free 18-64 YRS 2020-05-16 00:00:00 Completed [facility] Influenza Virus Vaccine Recomb Quad IM, Preserv and ABX Free 18-64 YRS 2020-05-16 00:00:00 Completed [facility] Influenza Virus Vaccine Recomb Quad IM, Preserv and ABX Free 18-64 YRS 2020-05-16 00:00:00 Completed [facility] Influenza Virus Vaccine Recomb Quad IM, Preserv and ABX Free 18-64 YRS 2020-05-16 00:00:00 Completed [facility] Influenza Virus Vaccine Recomb Quad IM, Preserv and ABX Free 18-64 YRS 2020-05-16 00:00:00 Completed [facility] Influenza Virus Vaccine Recomb Quad IM, Preserv and ABX Free 18-64 YRS 2020-05-16 00:00:00 Completed [facility] Influenza Virus Vaccine Recomb Quad IM, Preserv and ABX Free 18-64 YRS 2020-05-16 00:00:00 Completed [facility] Influenza Virus Vaccine Recomb Quad IM, Preserv and ABX Free 18-64 YRS 2020-05-16 00:00:00 Completed [facility] Influenza Virus Vaccine Recomb Quad IM, Preserv and ABX Free 18-64 YRS 2020-05-16 00:00:00 Completed [facility] Influenza Virus Vaccine Recomb Quad IM, Preserv and ABX Free 18-64 YRS 2020-05-16 00:00:00 Completed [facility] Influenza Virus Vaccine Recomb Quad IM, Preserv and ABX Free 18-64 YRS 2020-05-16 00:00:00 Completed [facility] Influenza Virus Vaccine Recomb Quad IM, Preserv and ABX Free 18-64 YRS 2020-05-16 00:00:00 Completed [facility] Influenza Virus Vaccine Recomb Quad IM, Preserv and ABX Free 18-64 YRS 2020-05-16 00:00:00 Completed [facility] TDAP (ADACEL) VACCINE 2019-05-21 00:00:00 Completed [facility] TDAP (ADACEL) VACCINE 2019-05-21 00:00:00 Completed [facility] TDAP (ADACEL) VACCINE 2019-05-21 00:00:00 Completed [facility] TDAP (ADACEL) VACCINE 2019-05-21 00:00:00 Completed [facility] TDAP (ADACEL) VACCINE 2019-05-21 00:00:00 Completed [facility] TDAP (ADACEL) VACCINE 2019-05-21 00:00:00 Completed [facility] TDAP (ADACEL) VACCINE 2019-05-21 00:00:00 Completed [facility] TDAP (ADACEL) VACCINE 2019-05-21 00:00:00 Completed [facility] TDAP (ADACEL) VACCINE 2019-05-21 00:00:00 Completed [facility] TDAP (ADACEL) VACCINE 2019-05-21 00:00:00 Completed [facility] TDAP (ADACEL) VACCINE 2019-05-21 00:00:00 Completed [facility] TDAP (ADACEL) VACCINE 2019-05-21 00:00:00 Completed [facility] TDAP (ADACEL) VACCINE 2019-05-21 00:00:00 Completed [facility] TDAP (ADACEL) VACCINE 2019-05-21 00:00:00 Completed [facility] TDAP (ADACEL) VACCINE 2019-05-21 00:00:00 Completed [facility] TDAP (ADACEL) VACCINE 2019-05-21 00:00:00 Completed [facility] TDAP (ADACEL) VACCINE 2019-05-21 00:00:00 Completed [facility] TDAP (ADACEL) VACCINE 2019-05-21 00:00:00 Completed [facility] TDAP (ADACEL) VACCINE 2019-05-21 00:00:00 Completed [facility] TDAP (ADACEL) VACCINE 2019-05-21 00:00:00 Completed [facility] TDAP (ADACEL) VACCINE 2019-05-21 00:00:00 Completed [facility] TDAP (ADACEL) VACCINE 2019-05-21 00:00:00 Completed [facility] TDAP (ADACEL) VACCINE 2019-05-21 00:00:00 Completed [facility] TDAP (ADACEL) VACCINE 2019-05-21 00:00:00 Completed [facility] TDAP (ADACEL) VACCINE 2019-05-21 00:00:00 Completed [facility] TDAP (ADACEL) VACCINE 2019-05-21 00:00:00 Completed [facility] TDAP (ADACEL) VACCINE 2019-05-21 00:00:00 Completed [facility] TDAP (ADACEL) VACCINE 2019-05-21 00:00:00 Completed [facility] TDAP (ADACEL) VACCINE 2019-05-21 00:00:00 Completed [facility] TDAP (ADACEL) VACCINE 2019-05-21 00:00:00 Completed [facility] TDAP (ADACEL) VACCINE 2019-05-21 00:00:00 Completed [facility] TDAP (ADACEL) VACCINE 2019-05-21 00:00:00 Completed [facility] TDAP (ADACEL) VACCINE 2019-05-21 00:00:00 Completed [facility] TDAP (ADACEL) VACCINE 2019-05-21 00:00:00 Completed [facility] TDAP (ADACEL) VACCINE 2019-05-21 00:00:00 Completed [facility] TDAP (ADACEL) VACCINE 2019-05-21 00:00:00 Completed [facility] TDAP (ADACEL) VACCINE 2019-05-21 00:00:00 Completed [facility] TDAP (ADACEL) VACCINE 2019-05-21 00:00:00 Completed [facility] TDAP (ADACEL) VACCINE 2019-05-21 00:00:00 Completed [facility] TDAP (ADACEL) VACCINE 2019-05-21 00:00:00 Completed [facility] TDAP (ADACEL) VACCINE 2019-05-21 00:00:00 Completed [facility] TDAP (ADACEL) VACCINE 2019-05-21 00:00:00 Completed [facility] TDAP (ADACEL) VACCINE 2019-05-21 00:00:00 Completed [facility] TDAP (ADACEL) VACCINE 2019-05-21 00:00:00 Completed [facility] TDAP (ADACEL) VACCINE 2019-05-21 00:00:00 Completed [facility] TDAP (ADACEL) VACCINE 2019-05-21 00:00:00 Completed [facility] TDAP (ADACEL) VACCINE 2019-05-21 00:00:00 Completed [facility] TDAP (ADACEL) VACCINE 2019-05-21 00:00:00 Completed [facility] TDAP (ADACEL) VACCINE 2019-05-21 00:00:00 Completed [facility] TDAP (ADACEL) VACCINE 2019-05-21 00:00:00 Completed [facility] TDAP (ADACEL) VACCINE 2019-05-21 00:00:00 Completed [facility] TDAP (ADACEL) VACCINE 2019-05-21 00:00:00 Completed [facility] TDAP (ADACEL) VACCINE 2019-05-21 00:00:00 Completed [facility] TDAP (ADACEL) VACCINE 2019-05-21 00:00:00 Completed [facility] TDAP (ADACEL) VACCINE 2019-05-21 00:00:00 Completed [facility] Influenza Virus Vaccine Quad .5 mL IM 6+ MO 2019-02-06 00:00:00 Completed [facility] Influenza Virus Vaccine Quad .5 mL IM 6+ MO 2019-02-06 00:00:00 Completed [facility] Influenza Virus Vaccine Quad .5 mL IM 6+ MO 2019-02-06 00:00:00 Completed [facility] Influenza Virus Vaccine Quad .5 mL IM 6+ MO 2019-02-06 00:00:00 Completed [facility] Influenza Virus Vaccine Quad .5 mL IM 6+ MO 2019-02-06 00:00:00 Completed [facility] Influenza Virus Vaccine Quad .5 mL IM 6+ MO 2019-02-06 00:00:00 Completed [facility] Influenza Virus Vaccine Quad .5 mL IM 6+ MO 2019-02-06 00:00:00 Completed [facility] Influenza Virus Vaccine Quad .5 mL IM 6+ MO 2019-02-06 00:00:00 Completed [facility] Influenza Virus Vaccine Quad .5 mL IM 6+ MO 2019-02-06 00:00:00 Completed [facility] Influenza Virus Vaccine Quad .5 mL IM 6+ MO 2019-02-06 00:00:00 Completed [facility] Influenza Virus Vaccine Quad .5 mL IM 6+ MO 2019-02-06 00:00:00 Completed [facility] Influenza Virus Vaccine Quad .5 mL IM 6+ MO 2019-02-06 00:00:00 Completed [facility] Influenza Virus Vaccine Quad .5 mL IM 6+ MO 2019-02-06 00:00:00 Completed [facility] Influenza Virus Vaccine Quad .5 mL IM 6+ MO 2019-02-06 00:00:00 Completed [facility] Influenza Virus Vaccine Quad .5 mL IM 6+ MO 2019-02-06 00:00:00 Completed [facility] Influenza Virus Vaccine Quad .5 mL IM 6+ MO 2019-02-06 00:00:00 Completed [facility] Influenza Virus Vaccine Quad .5 mL IM 6+ MO 2019-02-06 00:00:00 Completed [facility] Influenza Virus Vaccine Quad .5 mL IM 6+ MO 2019-02-06 00:00:00 Completed [facility] Influenza Virus Vaccine Quad .5 mL IM 6+ MO 2019-02-06 00:00:00 Completed [facility] Influenza Virus Vaccine Quad .5 mL IM 6+ MO 2019-02-06 00:00:00 Completed [facility] Influenza Virus Vaccine Quad .5 mL IM 6+ MO 2019-02-06 00:00:00 Completed [facility] Influenza Virus Vaccine Quad .5 mL IM 6+ MO 2019-02-06 00:00:00 Completed [facility] Influenza Virus Vaccine Quad .5 mL IM 6+ MO 2019-02-06 00:00:00 Completed [facility] Influenza Virus Vaccine Quad .5 mL IM 6+ MO 2019-02-06 00:00:00 Completed [facility] Influenza Virus Vaccine Quad .5 mL IM 6+ MO 2019-02-06 00:00:00 Completed [facility] Influenza Virus Vaccine Quad .5 mL IM 6+ MO 2019-02-06 00:00:00 Completed [facility] Influenza Virus Vaccine Quad .5 mL IM 6+ MO 2019-02-06 00:00:00 Completed [facility] Influenza Virus Vaccine Quad .5 mL IM 6+ MO 2019-02-06 00:00:00 Completed [facility] Influenza Virus Vaccine Quad .5 mL IM 6+ MO 2019-02-06 00:00:00 Completed [facility] Influenza Virus Vaccine Quad .5 mL IM 6+ MO 2019-02-06 00:00:00 Completed [facility] Influenza Virus Vaccine Quad .5 mL IM 6+ MO 2019-02-06 00:00:00 Completed [facility] Influenza Virus Vaccine Quad .5 mL IM 6+ MO 2019-02-06 00:00:00 Completed [facility] Influenza Virus Vaccine Quad .5 mL IM 6+ MO 2019-02-06 00:00:00 Completed [facility] Influenza Virus Vaccine Quad .5 mL IM 6+ MO 2019-02-06 00:00:00 Completed [facility] Influenza Virus Vaccine Quad .5 mL IM 6+ MO 2019-02-06 00:00:00 Completed [facility] Influenza Virus Vaccine Quad .5 mL IM 6+ MO 2019-02-06 00:00:00 Completed [facility] Influenza Virus Vaccine Quad .5 mL IM 6+ MO 2019-02-06 00:00:00 Completed [facility] Influenza Virus Vaccine Quad .5 mL IM 6+ MO 2019-02-06 00:00:00 Completed [facility] Influenza Virus Vaccine Quad .5 mL IM 6+ MO 2019-02-06 00:00:00 Completed [facility] Influenza Virus Vaccine Quad .5 mL IM 6+ MO 2019-02-06 00:00:00 Completed [facility] Influenza Virus Vaccine Quad .5 mL IM 6+ MO 2019-02-06 00:00:00 Completed [facility] Influenza Virus Vaccine Quad .5 mL IM 6+ MO 2019-02-06 00:00:00 Completed [facility] Influenza Virus Vaccine Quad .5 mL IM 6+ MO 2019-02-06 00:00:00 Completed [facility] Influenza Virus Vaccine Quad .5 mL IM 6+ MO 2019-02-06 00:00:00 Completed [facility] Influenza Virus Vaccine Quad .5 mL IM 6+ MO 2019-02-06 00:00:00 Completed [facility] Influenza Virus Vaccine Quad .5 mL IM 6+ MO 2019-02-06 00:00:00 Completed [facility] Influenza Virus Vaccine Quad .5 mL IM 6+ MO 2019-02-06 00:00:00 Completed [facility] Influenza Virus Vaccine Quad .5 mL IM 6+ MO 2019-02-06 00:00:00 Completed [facility] Influenza Virus Vaccine Quad .5 mL IM 6+ MO 2019-02-06 00:00:00 Completed [facility] Influenza Virus Vaccine Quad .5 mL IM 6+ MO 2019-02-06 00:00:00 Completed [facility] Influenza Virus Vaccine Quad .5 mL IM 6+ MO 2019-02-06 00:00:00 Completed [facility] Influenza Virus Vaccine Quad .5 mL IM 6+ MO 2019-02-06 00:00:00 Completed [facility] Influenza Virus Vaccine Quad .5 mL IM 6+ MO (FLUZONE/FLULAVAL/F LUARIX) 2019-02-06 00:00:00 Completed [facility] Influenza Virus Vaccine Quad .5 mL IM 6+ MO (FLUZONE/FLULAVAL/F LUARIX) 2019-02-06 00:00:00 Completed [facility] Influenza Virus Vaccine Quad .5 mL IM 6+ MO (FLUZONE/FLULAVAL/F LUARIX) 2019-02-06 00:00:00 Completed [facility] Influenza Virus Vaccine Quad .5 mL IM 6+ MO (FLUZONE/FLULAVAL/F LUARIX) Unknown Completed [facility] TDAP (ADACEL) VACCINE Unknown Completed [facility] Influenza Virus Vaccine Recomb Quad IM, Preserv and ABX Free 18-64 YRS Unknown Completed [facility] Influenza Virus Vaccine Unknown Completed [facility] Influenza Virus Vaccine Quad IM, Preserv and ABX Free 6 MO-64 YRS (FLUCELVAX) Unknown Completed [facility] Influenza Virus Vaccine Quad .5 mL IM 6+ MO (FLUZONE/FLULAVAL/F LUARIX) Unknown Completed [facility] TDAP (ADACEL) VACCINE Unknown Completed [facility] Influenza Virus Vaccine Recomb Quad IM, Preserv and ABX Free 18-64 YRS Unknown Completed [facility] Influenza Virus Vaccine Unknown Completed [facility] Influenza Virus Vaccine Quad IM, Preserv and ABX Free 6 MO-64 YRS (FLUCELVAX) Unknown Completed [facility] Influenza Virus Vaccine Quad .5 mL IM 6+ MO (FLUZONE/FLULAVAL/F LUARIX) Unknown Completed [facility] TDAP (ADACEL) VACCINE Unknown Completed [facility] Influenza Virus Vaccine Recomb Quad IM, Preserv and ABX Free 18-64 YRS Unknown Completed [facility] Influenza Virus Vaccine Unknown Completed [facility] Influenza Virus Vaccine Quad .5 mL IM 6+ MO (FLUZONE/FLULAVAL/F LUARIX) Unknown Completed [facility] TDAP (ADACEL) VACCINE Unknown Completed [facility] Influenza Virus Vaccine Recomb Quad IM, Preserv and ABX Free 18-64 YRS Unknown Completed [facility] Influenza Virus Vaccine Unknown Completed [facility] Influenza Virus Vaccine Quad .5 mL IM 6+ MO (FLUZONE/FLULAVAL/F LUARIX) Unknown Completed [facility] TDAP (ADACEL) VACCINE Unknown Completed [facility] Influenza Virus Vaccine Recomb Quad IM, Preserv and ABX Free 18-64 YRS Unknown Completed [facility] Influenza Virus Vaccine Unknown Completed [facility] Influenza Virus Vaccine Quad .5 mL IM 6+ MO (FLUZONE/FLULAVAL/F LUARIX) Unknown Completed [facility] TDAP (ADACEL) VACCINE Unknown Completed [facility] Influenza Virus Vaccine Recomb Quad IM, Preserv and ABX Free 18-64 YRS Unknown Completed [facility] Influenza Virus Vaccine Unknown Completed [facility] Influenza Virus Vaccine Quad .5 mL IM 6+ MO (FLUZONE/FLULAVAL/F LUARIX) Unknown Completed [facility] TDAP (ADACEL) VACCINE Unknown Completed [facility] Influenza Virus Vaccine Recomb Quad IM, Preserv and ABX Free 18-64 YRS Unknown Completed [facility] Influenza Virus Vaccine Unknown Completed [facility] Influenza Virus Vaccine Quad .5 mL IM 6+ MO (FLUZONE/FLULAVAL/F LUARIX) Unknown Completed [facility] TDAP (ADACEL) VACCINE Unknown Completed [facility] Influenza Virus Vaccine Recomb Quad IM, Preserv and ABX Free 18-64 YRS Unknown Completed [facility] Influenza Virus Vaccine Unknown Completed [facility] Influenza Virus Vaccine Quad .5 mL IM 6+ MO (FLUZONE/FLULAVAL/F LUARIX) Unknown Completed [facility] TDAP (ADACEL) VACCINE Unknown Completed [facility] Influenza Virus Vaccine Recomb Quad IM, Preserv and ABX Free 18-64 YRS Unknown Completed [facility] Influenza Virus Vaccine Unknown Completed [facility] Influenza Virus Vaccine Quad .5 mL IM 6+ MO (FLUZONE/FLULAVAL/F LUARIX) Unknown Completed [facility] TDAP (ADACEL) VACCINE Unknown Completed [facility] Influenza Virus Vaccine Recomb Quad IM, Preserv and ABX Free 18-64 YRS Unknown Completed [facility] Influenza Virus Vaccine Unknown Completed [facility] Influenza Virus Vaccine Quad .5 mL IM 6+ MO (FLUZONE/FLULAVAL/F LUARIX) Unknown Completed [facility] TDAP (ADACEL) VACCINE Unknown Completed [facility] Influenza Virus Vaccine Recomb Quad IM, Preserv and ABX Free 18-64 YRS Unknown Completed [facility] Influenza Virus Vaccine Unknown Completed [facility] Influenza Virus Vaccine Quad .5 mL IM 6+ MO (FLUZONE/FLULAVAL/F LUARIX) Unknown Completed [facility] TDAP (ADACEL) VACCINE Unknown Completed [facility] Influenza Virus Vaccine Recomb Quad IM, Preserv and ABX Free 18-64 YRS Unknown Completed [facility] Influenza Virus Vaccine Unknown Completed [facility] Influenza Virus Vaccine Quad .5 mL IM 6+ MO (FLUZONE/FLULAVAL/F LUARIX) Unknown Completed [facility] TDAP (ADACEL) VACCINE Unknown Completed [facility] Influenza Virus Vaccine Recomb Quad IM, Preserv and ABX Free 18-64 YRS Unknown Completed [facility] Influenza Virus Vaccine Unknown Completed [facility] Influenza Virus Vaccine Quad .5 mL IM 6+ MO (FLUZONE/FLULAVAL/F LUARIX) Unknown Completed [facility] TDAP (ADACEL) VACCINE Unknown Completed [facility] Influenza Virus Vaccine Recomb Quad IM, Preserv and ABX Free 18-64 YRS Unknown Completed [facility] Influenza Virus Vaccine Unknown Completed [facility] Influenza Virus Vaccine Quad .5 mL IM 6+ MO (FLUZONE/FLULAVAL/F LUARIX) Unknown Completed [facility] TDAP (ADACEL) VACCINE Unknown Completed [facility] Influenza Virus Vaccine Recomb Quad IM, Preserv and ABX Free 18-64 YRS Unknown Completed [facility] Influenza Virus Vaccine Unknown Completed [facility] Influenza Virus Vaccine Quad .5 mL IM 6+ MO (FLUZONE/FLULAVAL/F LUARIX) Unknown Completed [facility] TDAP (ADACEL) VACCINE Unknown Completed [facility] Influenza Virus Vaccine Recomb Quad IM, Preserv and ABX Free 18-64 YRS Unknown Completed [facility] Influenza Virus Vaccine Unknown Completed [facility] Influenza Virus Vaccine Quad .5 mL IM 6+ MO (FLUZONE/FLULAVAL/F LUARIX) Unknown Completed [facility] TDAP (ADACEL) VACCINE Unknown Completed [facility] Influenza Virus Vaccine Recomb Quad IM, Preserv and ABX Free 18-64 YRS Unknown Completed [facility] Influenza Virus Vaccine Unknown Completed [facility] Influenza Virus Vaccine Quad .5 mL IM 6+ MO (FLUZONE/FLULAVAL/F LUARIX) Unknown Completed [facility] TDAP (ADACEL) VACCINE Unknown Completed [facility] Influenza Virus Vaccine Recomb Quad IM, Preserv and ABX Free 18-64 YRS Unknown Completed [facility] Influenza Virus Vaccine Unknown Completed [facility] Influenza Virus Vaccine Quad .5 mL IM 6+ MO (FLUZONE/FLULAVAL/F LUARIX) Unknown Completed [facility] TDAP (ADACEL) VACCINE Unknown Completed [facility] Influenza Virus Vaccine Recomb Quad IM, Preserv and ABX Free 18-64 YRS Unknown Completed [facility] Influenza Virus Vaccine Unknown Completed [facility] Influenza Virus Vaccine Quad .5 mL IM 6+ MO (FLUZONE/FLULAVAL/F LUARIX) Unknown Completed [facility] TDAP (ADACEL) VACCINE Unknown Completed [facility] Influenza Virus Vaccine Recomb Quad IM, Preserv and ABX Free 18-64 YRS Unknown Completed [facility] Influenza Virus Vaccine Unknown Completed [facility] Influenza Virus Vaccine Quad .5 mL IM 6+ MO (FLUZONE/FLULAVAL/F LUARIX) Unknown Completed [facility] TDAP (ADACEL) VACCINE Unknown Completed [facility] Influenza Virus Vaccine Recomb Quad IM, Preserv and ABX Free 18-64 YRS Unknown Completed [facility] Influenza Virus Vaccine Unknown Completed [facility] Influenza Virus Vaccine Quad .5 mL IM 6+ MO (FLUZONE/FLULAVAL/F LUARIX) Unknown Completed [facility] TDAP (ADACEL) VACCINE Unknown Completed [facility] Influenza Virus Vaccine Recomb Quad IM, Preserv and ABX Free 18-64 YRS Unknown Completed [facility] Influenza Virus Vaccine Unknown Completed [facility] Influenza Virus Vaccine Quad .5 mL IM 6+ MO (FLUZONE/FLULAVAL/F LUARIX) Unknown Completed [facility] TDAP (ADACEL) VACCINE Unknown Completed [facility] Influenza Virus Vaccine Recomb Quad IM, Preserv and ABX Free 18-64 YRS Unknown Completed [facility] Influenza Virus Vaccine Unknown Completed [facility] Influenza Virus Vaccine Quad .5 mL IM 6+ MO (FLUZONE/FLULAVAL/F LUARIX) Unknown Completed [facility] TDAP (ADACEL) VACCINE Unknown Completed [facility] Influenza Virus Vaccine Recomb Quad IM, Preserv and ABX Free 18-64 YRS Unknown Completed [facility] Influenza Virus Vaccine Unknown Completed [facility] Influenza Virus Vaccine Quad .5 mL IM 6+ MO (FLUZONE/FLULAVAL/F LUARIX) Unknown Completed [facility] TDAP (ADACEL) VACCINE Unknown Completed [facility] Influenza Virus Vaccine Recomb Quad IM, Preserv and ABX Free 18-64 YRS Unknown Completed [facility] Influenza Virus Vaccine Unknown Completed [facility] Influenza Virus Vaccine Quad .5 mL IM 6+ MO (FLUZONE/FLULAVAL/F LUARIX) Unknown Completed [facility] TDAP (ADACEL) VACCINE Unknown Completed [facility] Influenza Virus Vaccine Recomb Quad IM, Preserv and ABX Free 18-64 YRS Unknown Completed [facility] Influenza Virus Vaccine Unknown Completed [facility] Influenza Virus Vaccine Quad .5 mL IM 6+ MO (FLUZONE/FLULAVAL/F LUARIX) Unknown Completed [facility] TDAP (ADACEL) VACCINE Unknown Completed [facility] Influenza Virus Vaccine Recomb Quad IM, Preserv and ABX Free 18-64 YRS Unknown Completed [facility] Influenza Virus Vaccine Unknown Completed [facility] Influenza Virus Vaccine Quad .5 mL IM 6+ MO (FLUZONE/FLULAVAL/F LUARIX) Unknown Completed [facility] TDAP (ADACEL) VACCINE Unknown Completed [facility] Influenza Virus Vaccine Recomb Quad IM, Preserv and ABX Free 18-64 YRS Unknown Completed [facility] Influenza Virus Vaccine Unknown Completed [facility] Influenza Virus Vaccine Quad .5 mL IM 6+ MO (FLUZONE/FLULAVAL/F LUARIX) Unknown Completed [facility] TDAP (ADACEL) VACCINE Unknown Completed [facility] Influenza Virus Vaccine Recomb Quad IM, Preserv and ABX Free 18-64 YRS Unknown Completed [facility] Influenza Virus Vaccine Unknown Completed [facility] Influenza Virus Vaccine Quad .5 mL IM 6+ MO (FLUZONE/FLULAVAL/F LUARIX) Unknown Completed [facility] TDAP (ADACEL) VACCINE Unknown Completed [facility] Influenza Virus Vaccine Recomb Quad IM, Preserv and ABX Free 18-64 YRS Unknown Completed [facility] Influenza Virus Vaccine Unknown Completed [facility] Influenza Virus Vaccine Quad .5 mL IM 6+ MO (FLUZONE/FLULAVAL/F LUARIX) Unknown Completed [facility] TDAP (ADACEL) VACCINE Unknown Completed [facility] Influenza Virus Vaccine Recomb Quad IM, Preserv and ABX Free 18-64 YRS Unknown Completed [facility] Influenza Virus Vaccine Unknown Completed [facility] Influenza Virus Vaccine Quad .5 mL IM 6+ MO (FLUZONE/FLULAVAL/F LUARIX) Unknown Completed [facility] TDAP (ADACEL) VACCINE Unknown Completed [facility] Influenza Virus Vaccine Recomb Quad IM, Preserv and ABX Free 18-64 YRS Unknown Completed [facility] Influenza Virus Vaccine Unknown Completed [facility] Influenza Virus Vaccine Quad .5 mL IM 6+ MO (FLUZONE/FLULAVAL/F LUARIX) Unknown Completed [facility] TDAP (ADACEL) VACCINE Unknown Completed [facility] Influenza Virus Vaccine Recomb Quad IM, Preserv and ABX Free 18-64 YRS Unknown Completed [facility] Influenza Virus Vaccine Unknown Completed [facility] Influenza Virus Vaccine Quad .5 mL IM 6+ MO (FLUZONE/FLULAVAL/F LUARIX) Unknown Completed [facility] TDAP (ADACEL) VACCINE Unknown Completed [facility] Influenza Virus Vaccine Recomb Quad IM, Preserv and ABX Free 18-64 YRS Unknown Completed [facility] Influenza Virus Vaccine Unknown Completed [facility] Influenza Virus Vaccine Quad .5 mL IM 6+ MO (FLUZONE/FLULAVAL/F LUARIX) Unknown Completed [facility] TDAP (ADACEL) VACCINE Unknown Completed [facility] Influenza Virus Vaccine Recomb Quad IM, Preserv and ABX Free 18-64 YRS Unknown Completed [facility] Influenza Virus Vaccine Unknown Completed [facility] Influenza Virus Vaccine Quad .5 mL IM 6+ MO (FLUZONE/FLULAVAL/F LUARIX) Unknown Completed [facility] TDAP (ADACEL) VACCINE Unknown Completed [facility] Influenza Virus Vaccine Recomb Quad IM, Preserv and ABX Free 18-64 YRS Unknown Completed [facility] Influenza Virus Vaccine Unknown Completed [facility] Influenza Virus Vaccine Quad .5 mL IM 6+ MO (FLUZONE/FLULAVAL/F LUARIX) Unknown Completed [facility] TDAP (ADACEL) VACCINE Unknown Completed [facility] Influenza Virus Vaccine Recomb Quad IM, Preserv and ABX Free 18-64 YRS Unknown Completed [facility] Influenza Virus Vaccine Unknown Completed [facility] Influenza Virus Vaccine Quad .5 mL IM 6+ MO (FLUZONE/FLULAVAL/F LUARIX) Unknown Completed [facility] TDAP (ADACEL) VACCINE Unknown Completed [facility] Influenza Virus Vaccine Recomb Quad IM, Preserv and ABX Free 18-64 YRS Unknown Completed [facility] Influenza Virus Vaccine Unknown Completed [facility] Influenza Virus Vaccine Quad .5 mL IM 6+ MO (FLUZONE/FLULAVAL/F LUARIX) Unknown Completed [facility] TDAP (ADACEL) VACCINE Unknown Completed [facility] Influenza Virus Vaccine Recomb Quad IM, Preserv and ABX Free 18-64 YRS Unknown Completed [facility] Influenza Virus Vaccine Unknown Completed [facility] Influenza Virus Vaccine Quad .5 mL IM 6+ MO (FLUZONE/FLULAVAL/F LUARIX) Unknown Completed [facility] TDAP (ADACEL) VACCINE Unknown Completed [facility] Influenza Virus Vaccine Recomb Quad IM, Preserv and ABX Free 18-64 YRS Unknown Completed [facility] Influenza Virus Vaccine Unknown Completed [facility] Influenza Virus Vaccine Quad .5 mL IM 6+ MO (FLUZONE/FLULAVAL/F LUARIX) Unknown Completed [facility] TDAP (ADACEL) VACCINE Unknown Completed [facility] Influenza Virus Vaccine Recomb Quad IM, Preserv and ABX Free 18-64 YRS Unknown Completed [facility] Influenza Virus Vaccine Unknown Completed [facility] Influenza Virus Vaccine Quad .5 mL IM 6+ MO (FLUZONE/FLULAVAL/F LUARIX) Unknown Completed [facility] TDAP (ADACEL) VACCINE Unknown Completed [facility] Influenza Virus Vaccine Recomb Quad IM, Preserv and ABX Free 18-64 YRS Unknown Completed [facility] Influenza Virus Vaccine Unknown Completed [facility] Influenza Virus Vaccine Quad .5 mL IM 6+ MO (FLUZONE/FLULAVAL/F LUARIX) Unknown Completed [facility] TDAP (ADACEL) VACCINE Unknown Completed [facility] Influenza Virus Vaccine Recomb Quad IM, Preserv and ABX Free 18-64 YRS Unknown Completed [facility] Influenza Virus Vaccine Unknown Completed [facility] Influenza Virus Vaccine Quad .5 mL IM 6+ MO (FLUZONE/FLULAVAL/F LUARIX) Unknown Completed [facility] TDAP (ADACEL) VACCINE Unknown Completed [facility] Influenza Virus Vaccine Recomb Quad IM, Preserv and ABX Free 18-64 YRS Unknown Completed [facility] Influenza Virus Vaccine Unknown Completed [facility] Influenza Virus Vaccine Quad .5 mL IM 6+ MO (FLUZONE/FLULAVAL/F LUARIX) Unknown Completed [facility] TDAP (ADACEL) VACCINE Unknown Completed [facility] Influenza Virus Vaccine Recomb Quad IM, Preserv and ABX Free 18-64 YRS Unknown Completed [facility] Influenza Virus Vaccine Unknown Completed [facility] Influenza Virus Vaccine Quad .5 mL IM 6+ MO (FLUZONE/FLULAVAL/F LUARIX) Unknown Completed [facility] TDAP (ADACEL) VACCINE Unknown Completed [facility] Influenza Virus Vaccine Recomb Quad IM, Preserv and ABX Free 18-64 YRS Unknown Completed [facility] Influenza Virus Vaccine Unknown Completed [facility] Influenza Virus Vaccine Quad .5 mL IM 6+ MO (FLUZONE/FLULAVAL/F LUARIX) Unknown Completed [facility] TDAP (ADACEL) VACCINE Unknown Completed [facility] Influenza Virus Vaccine Recomb Quad IM, Preserv and ABX Free 18-64 YRS Unknown Completed [facility] Influenza Virus Vaccine Unknown Completed [facility] Influenza Virus Vaccine Quad .5 mL IM 6+ MO (FLUZONE/FLULAVAL/F LUARIX) Unknown Completed [facility] TDAP (ADACEL) VACCINE Unknown Completed [facility] Influenza Virus Vaccine Recomb Quad IM, Preserv and ABX Free 18-64 YRS Unknown Completed [facility] Influenza Virus Vaccine Unknown Completed [facility] Influenza Virus Vaccine Quad .5 mL IM 6+ MO (FLUZONE/FLULAVAL/F LUARIX) Unknown Completed [facility] TDAP (ADACEL) VACCINE Unknown Completed [facility] Influenza Virus Vaccine Recomb Quad IM, Preserv and ABX Free 18-64 YRS Unknown Completed [facility] Influenza Virus Vaccine Unknown Completed [facility] Influenza Virus Vaccine Quad .5 mL IM 6+ MO (FLUZONE/FLULAVAL/F LUARIX) Unknown Completed [facility] TDAP (ADACEL) VACCINE Unknown Completed [facility] Influenza Virus Vaccine Recomb Quad IM, Preserv and ABX Free 18-64 YRS Unknown Completed [facility] Influenza Virus Vaccine Unknown Completed [facility] Influenza Virus Vaccine Quad .5 mL IM 6+ MO (FLUZONE/FLULAVAL/F LUARIX) Unknown Completed [facility] TDAP (ADACEL) VACCINE Unknown Completed [facility] Influenza Virus Vaccine Recomb Quad IM, Preserv and ABX Free 18-64 YRS Unknown Completed [facility] Influenza Virus Vaccine Unknown Completed [facility] Influenza Virus Vaccine Quad .5 mL IM 6+ MO (FLUZONE/FLULAVAL/F LUARIX) Unknown Completed [facility] TDAP (ADACEL) VACCINE Unknown Completed [facility] Influenza Virus Vaccine Recomb Quad IM, Preserv and ABX Free 18-64 YRS Unknown Completed [facility] Influenza Virus Vaccine Unknown Completed [facility] Influenza Virus Vaccine Quad .5 mL IM 6+ MO (FLUZONE/FLULAVAL/F LUARIX) Unknown Completed [facility] TDAP (ADACEL) VACCINE Unknown Completed [facility] Influenza Virus Vaccine Recomb Quad IM, Preserv and ABX Free 18-64 YRS Unknown Completed [facility] Influenza Virus Vaccine Unknown Completed [facility] Influenza Virus Vaccine Quad .5 mL IM 6+ MO (FLUZONE/FLULAVAL/F LUARIX) Unknown Completed [facility] TDAP (ADACEL) VACCINE Unknown Completed [facility] Influenza Virus Vaccine Recomb Quad IM, Preserv and ABX Free 18-64 YRS Unknown Completed [facility] Influenza Virus Vaccine Unknown Completed [facility] Influenza Virus Vaccine Quad .5 mL IM 6+ MO (FLUZONE/FLULAVAL/F LUARIX) Unknown Completed [facility] TDAP (ADACEL) VACCINE Unknown Completed [facility] Influenza Virus Vaccine Quad .5 mL IM 6+ MO (FLUZONE/FLULAVAL/F LUARIX) Unknown Completed [facility] TDAP (ADACEL) VACCINE Unknown Completed [facility] Influenza Virus Vaccine Quad .5 mL IM 6+ MO (FLUZONE/FLULAVAL/F LUARIX) Unknown Completed [facility] TDAP (ADACEL) VACCINE Unknown Completed [facility] Influenza Virus Vaccine Quad .5 mL IM 6+ MO (FLUZONE/FLULAVAL/F LUARIX) Unknown Completed [facility] TDAP (ADACEL) VACCINE Unknown Completed [facility] Influenza Virus Vaccine Quad .5 mL IM 6+ MO (FLUZONE/FLULAVAL/F LUARIX) Unknown Completed [facility] TDAP (ADACEL) VACCINE Unknown Completed [facility] Influenza Virus Vaccine Quad .5 mL IM 6+ MO (FLUZONE/FLULAVAL/F LUARIX) Unknown Completed [facility] TDAP (ADACEL) VACCINE Unknown Completed [facility] Influenza Virus Vaccine Quad .5 mL IM 6+ MO (FLUZONE/FLULAVAL/F LUARIX) Unknown Completed [facility] TDAP (ADACEL) VACCINE Unknown Completed [facility] Influenza Virus Vaccine Quad .5 mL IM 6+ MO (FLUZONE/FLULAVAL/F LUARIX) Unknown Completed [facility] TDAP (ADACEL) VACCINE Unknown Completed [facility] Influenza Virus Vaccine Quad .5 mL IM 6+ MO (FLUZONE/FLULAVAL/F LUARIX) Unknown Completed [facility] TDAP (ADACEL) VACCINE Unknown Completed [facility] Influenza Virus Vaccine Quad .5 mL IM 6+ MO (FLUZONE/FLULAVAL/F LUARIX) Unknown Completed [facility] TDAP (ADACEL) VACCINE Unknown Completed [facility] Influenza Virus Vaccine Recomb Quad IM, Preserv and ABX Free 18-64 YRS Unknown Completed [facility] Influenza Virus Vaccine Unknown Completed [facility] Influenza Virus Vaccine Quad IM, Preserv and ABX Free 6 MO-64 YRS (FLUCELVAX) Unknown Completed [facility] Influenza Virus Vaccine Quad .5 mL IM 6+ MO (FLUZONE/FLULAVAL/F LUARIX) Unknown Completed [facility] TDAP (ADACEL) VACCINE Unknown Completed [facility] Influenza Virus Vaccine Recomb Quad IM, Preserv and ABX Free 18-64 YRS Unknown Completed [facility] Influenza Virus Vaccine Unknown Completed [facility] Influenza Virus Vaccine Quad IM, Preserv and ABX Free 6 MO-64 YRS (FLUCELVAX) Unknown Completed [facility] Influenza Virus Vaccine Quad .5 mL IM 6+ MO (FLUZONE/FLULAVAL/F LUARIX) Unknown Completed [facility] TDAP (ADACEL) VACCINE Unknown Completed [facility] Influenza Virus Vaccine Recomb Quad IM, Preserv and ABX Free 18-64 YRS Unknown Completed [facility] Influenza Virus Vaccine Unknown Completed [facility] Influenza Virus Vaccine Quad IM, Preserv and ABX Free 6 MO-64 YRS (FLUCELVAX) Unknown Completed [facility] Vital Signs Vital Name Observation Time Observation Value Comments S yeseniace Systolic blood pressure 2024-08-16 15:52:44 116 mm[Hg] [facility] Diastolic blood pressure 2024-08-16 15:52:44 70 mm[Hg] [facility] Heart rate 2024-08-16 15:52:44 62 /min [facility] Body temperature 2024-08-16 15:52:44 36.89 Irene [facility] Respiratory rate 2024-08-16 15:52:44 16 /min [facility] Oxygen saturation in Arterial blood by Pulse oximetry 2024-08-16 15:52:44 100 /min [facility] Body height 2024-08-16 13:09:00 154.9 cm [facility] Body weight 2024-08-16 13:09:00 58.968 kg [facility] BMI 2024-08-16 13:09:00 24.56 kg/m2 [facility] Systolic blood pressure 2024-08-02 17:21:00 119 mm[Hg] [facility] Diastolic blood pressure 2024-08-02 17:21:00 81 mm[Hg] [facility] Heart rate 2024-08-02 17:21:00 88 /min [facility] Body temperature 2024-08-02 17:21:00 36.78 Irene [facility] Respiratory rate 2024-08-02 17:21:00 16 /min [facility] Oxygen saturation in Arterial blood by Pulse oximetry 2024-08-02 17:21:00 100 /min [facility] Body height 2024-08-02 15:11:[address] [facility] Body weight 2024-08-02 15:11:00 52.164 kg [facility] BMI 2024-08-02 15:11:00 21.73 kg/m2 [facility] Systolic blood pressure 2024-05-19 20:32:57 137 mm[Hg] [facility] Diastolic blood pressure 2024-05-19 20:32:57 88 mm[Hg] [facility] Heart rate 2024-05-19 20:32:57 118 /min [facility] Respiratory rate 2024-05-19 20:32:57 18 /min [facility] Oxygen saturation in Arterial blood by Pulse oximetry 2024-05-19 20:32:57 100 /min [facility] Body temperature 2024-05-19 18:41:00 36.39 Irene [facility] Body height 2024-05-19 18:41:00 154.9 cm [facility] Body weight 2024-05-19 18:41:00 52.164 kg [facility] BMI 2024-05-19 18:41:00 21.73 kg/m2 [facility] Systolic blood pressure 2024-04-19 15:51:38 123 mm[Hg] [facility] Diastolic blood pressure 2024-04-19 15:51:38 90 mm[Hg] [facility] Heart rate 2024-04-19 15:51:38 87 /min [facility] Body temperature 2024-04-19 15:51:38 36.78 Irene [facility] Respiratory rate 2024-04-19 15:51:38 14 /min [facility] Oxygen saturation in Arterial blood by Pulse oximetry 2024-04-19 15:51:38 100 /min [facility] Body height 2024-04-19 13:54:00 154.9 cm [facility] Body weight 2024-04-19 13:54:00 54.432 kg [facility] BMI 2024-04-19 13:54:00 22.67 kg/m2 [facility] Systolic blood pressure 2024-04-12 20:00:00 119 mm[Hg] [facility] Diastolic blood pressure 2024-04-12 20:00:00 80 mm[Hg] [facility] Heart rate 2024-04-12 20:00:00 88 /min [facility] Respiratory rate 2024-04-12 20:00:00 18 /min [facility] Oxygen saturation in Arterial blood by Pulse oximetry 2024-04-12 20:00:00 99 /min [facility] Body temperature 2024-04-12 19:00:00 36.67 Irene [facility] Body height 2024-04-12 17:57:10 154.9 cm [facility] Body weight 2024-04-12 17:57:10 54.432 kg [facility] BMI 2024-04-12 17:57:10 22.67 kg/m2 [facility] Systolic blood pressure 2024-04-12 16:25:00 124 mm[Hg] [facility] Diastolic blood pressure 2024-04-12 16:25:00 95 mm[Hg] [facility] Heart rate 2024-04-12 16:25:00 106 /min [facility] Body temperature 2024-04-12 16:25:00 37.17 Irene [facility] Respiratory rate 2024-04-12 16:25:00 18 /min [facility] Oxygen saturation in Arterial blood by Pulse oximetry 2024-04-12 16:25:00 100 /min [facility] Body height 2024-04-12 15:25:00 154.9 cm [facility] Body weight 2024-04-12 15:25:00 54.432 kg [facility] BMI 2024-04-12 15:25:00 22.67 kg/m2 [facility] Systolic blood pressure 2024-03-13 13:25:00 129 mm[Hg] [facility] Diastolic blood pressure 2024-03-13 13:25:00 87 mm[Hg] [facility] Heart rate 2024-03-13 13:25:00 116 /min [facility] Body temperature 2024-03-13 13:25:00 35.61 Irene [facility] Respiratory rate 2024-03-13 13:25:00 20 /min [facility] Oxygen saturation in Arterial blood by Pulse oximetry 2024-03-13 13:25:00 94 /min [facility] Body height 2024-03-10 14:43:00 154.9 cm [facility] Body weight 2024-03-10 14:43:00 44.453 kg [facility] BMI 2024-03-10 14:43:00 18.52 kg/m2 [facility] Systolic blood pressure 2024-03-05 16:10:00 142 mm[Hg] [facility] Diastolic blood pressure 2024-03-05 16:10:00 87 mm[Hg] [facility] Heart rate 2024-03-05 16:10:00 94 /min [facility] Body temperature 2024-03-05 16:10:00 37 Irene [facility] Respiratory rate 2024-03-05 16:10:00 16 /min [facility] Oxygen saturation in Arterial blood by Pulse oximetry 2024-03-05 16:10:00 100 /min [facility] Body height 2024-03-04 11:42:00 154.9 cm [facility] Body weight 2024-03-04 11:42:00 45.36 kg [facility] BMI 2024-03-04 11:42:00 18.89 kg/m2 [facility] Systolic blood pressure 2024-02-27 17:17:00 138 mm[Hg] [facility] Diastolic blood pressure 2024-02-27 17:17:00 91 mm[Hg] [facility] Heart rate 2024-02-27 17:17:00 97 /min [facility] Body temperature 2024-02-27 17:17:00 36.67 Irene [facility] Respiratory rate 2024-02-27 17:17:00 16 /min [facility] Oxygen saturation in Arterial blood by Pulse oximetry 2024-02-27 17:17:00 99 /min [facility] Body height 2024-02-27 13:16:00 154.9 cm [facility] Body weight 2024-02-27 13:16:00 45.36 kg [facility] BMI 2024-02-27 13:16:00 18.89 kg/m2 [facility] Systolic blood pressure 2024-02-27 15:50:00 122 mm[Hg] [facility] Diastolic blood pressure 2024-02-27 15:50:00 81 mm[Hg] [facility] Heart rate 2024-02-27 15:50:00 102 /min [facility] Respiratory rate 2024-02-27 15:50:00 13 /min [facility] Oxygen saturation in Arterial blood by Pulse oximetry 2024-02-27 15:50:00 98 /min [facility] Body temperature 2024-02-27 15:20:00 36 Irene [facility] Body height 2024-02-27 13:16:00 154.9 cm [facility] Body weight 2024-02-27 13:16:00 45.36 kg [facility] BMI 2024-02-27 13:16:00 18.89 kg/m2 [facility] Systolic blood pressure 2023-05-19 17:24:00 129 mm[Hg] [facility] Diastolic blood pressure 2023-05-19 17:24:00 83 mm[Hg] [facility] Heart rate 2023-05-19 17:24:00 77 /min [facility] Respiratory rate 2023-05-19 17:24:00 15 /min [facility] Oxygen saturation in Arterial blood by Pulse oximetry 2023-05-19 17:24:00 100 /min [facility] Body temperature 2023-05-19 14:50:00 37.28 Irene [facility] Body height 2023-05-19 14:50:[address] [facility] Body weight 2023-05-19 14:50:00 58.968 kg [facility] BMI 2023-05-19 14:50:00 24.56 kg/m2 [facility] Systolic blood pressure 2023-01-15 16:56:00 132 mm[Hg] [facility] Diastolic blood pressure 2023-01-15 16:56:00 91 mm[Hg] [facility] Heart rate 2023-01-15 16:56:00 67 /min [facility] Body temperature 2023-01-15 16:56:00 36.78 Irene [facility] Respiratory rate 2023-01-15 16:56:00 20 /min [facility] Oxygen saturation in Arterial blood by Pulse oximetry 2023-01-15 16:56:00 100 /min [facility] Body height 2023-01-12 09:05:00 154.9 cm [facility] Body weight 2023-01-12 09:05:00 58.968 kg [facility] BMI 2023-01-12 09:05:00 24.56 kg/m2 [facility] Systolic blood pressure 2022-11-21 21:40:00 122 mm[Hg] [facility] Diastolic blood pressure 2022-11-21 21:40:00 90 mm[Hg] [facility] Heart rate 2022-11-21 21:40:00 92 /min [facility] Respiratory rate 2022-11-21 21:40:00 16 /min [facility] Oxygen saturation in Arterial blood by Pulse oximetry 2022-11-21 21:40:00 99 /min [facility] Body temperature 2022-11-21 18:07:00 37.28 Irene [facility] Body weight 2022-11-21 18:07:00 68.04 kg [facility] BMI 2022-11-21 18:07:00 28.34 kg/m2 [facility] Systolic blood pressure 2022-09-05 17:22:00 139 mm[Hg] [facility] Diastolic blood pressure 2022-09-05 17:22:00 91 mm[Hg] [facility] Heart rate 2022-09-05 17:22:00 120 /min [facility] Respiratory rate 2022-09-05 17:22:00 18 /min [facility] Oxygen saturation in Arterial blood by Pulse oximetry 2022-09-05 17:22:00 99 /min [facility] Body temperature 2022-09-05 13:43:00 37.11 Irene [facility] Body weight 2022-09-05 13:43:[address] [facility] BMI 2022-09-05 13:43:00 28.34 kg/m2 [facility] Systolic blood pressure 2022-08-01 00:49:00 138 mm[Hg] [facility] Diastolic blood pressure 2022-08-01 00:49:00 104 mm[Hg] [facility] Heart rate 2022-08-01 00:49:00 108 /min [facility] Respiratory rate 2022-08-01 00:49:00 18 /min [facility] Oxygen saturation in Arterial blood by Pulse oximetry 2022-08-01 00:49:00 99 /min [facility] Body temperature 2022-07-31 22:52:00 37.11 [facility] Body height 2022-07-31 22:52:00 154.9 cm [facility] Body weight 2022-07-31 22:52:00 68.04 kg [facility] BMI 2022-07-31 22:52:00 28.34 kg/m2 [facility] Systolic blood pressure 2022-07-15 15:32:00 130 mm[Hg] [facility] Diastolic blood pressure 2022-07-15 15:32:00 90 mm[Hg] [facility] Heart rate 2022-07-15 15:31:00 81 /min [facility] Body temperature 2022-07-15 15:31:00 36.94 Irene [facility] Respiratory rate 2022-07-15 15:31:00 16 /min [facility] Body weight 2022-07-15 15:31:00 68.493 kg [facility] BMI 2022-07-15 15:31:00 28.53 kg/m2 [facility] Oxygen saturation in Arterial blood by Pulse oximetry 2022-07-15 15:31:00 99 /min [facility] Systolic blood pressure 2022-06-23 15:26:00 111 mm[Hg] [facility] Diastolic blood pressure 2022-06-23 15:26:00 75 mm[Hg] [facility] Heart rate 2022-06-23 15:26:00 108 /min [facility] Body temperature 2022-06-23 15:26:00 36.83 Irene [facility] Respiratory rate 2022-06-23 15:26:00 18 /min [facility] Body height 2022-06-23 15:26:[address] [facility] Body weight 2022-06-23 15:26:[address] [facility] BMI 2022-06-23 15:26:00 29.74 kg/m2 [facility] Oxygen saturation in Arterial blood by Pulse oximetry 2022-06-23 15:26:00 99 /min [facility] Systolic blood pressure 2022-05-05 22:05:00 126 mm[Hg] [facility] Diastolic blood pressure 2022-05-05 22:05:00 75 mm[Hg] [facility] Heart rate 2022-05-05 22:05:00 99 /min [facility] Respiratory rate 2022-05-05 22:05:00 16 /min [facility] Oxygen saturation in Arterial blood by Pulse oximetry 2022-05-05 22:05:00 99 /min [facility] Body temperature 2022-05-05 18:24:00 37.11 Irene [facility] Body height 2022-05-05 18:24:[address] [facility] Body weight 2022-05-05 18:24:[address] [facility] BMI 2022-05-05 18:24:00 22.67 kg/m2 [facility] Systolic blood pressure 2022-04-26 14:28:00 135 mm[Hg] [facility] Diastolic blood pressure 2022-04-26 14:28:00 95 mm[Hg] [facility] Heart rate 2022-04-26 14:28:00 93 /min [facility] Body temperature 2022-04-26 14:28:00 36.89 Irene [facility] Respiratory rate 2022-04-26 14:28:00 18 /min [facility] Body height 2022-04-26 14:28:00 154.9 cm [facility] Body weight 2022-04-26 14:28:00 54.432 kg [facility] BMI 2022-04-26 14:28:00 22.67 kg/m2 [facility] Oxygen saturation in Arterial blood by Pulse oximetry 2022-04-26 14:28:00 100 /min [facility] Systolic blood pressure 2022-04-26 00:21:00 151 mm[Hg] [facility] Diastolic blood pressure 2022-04-26 00:21:00 98 mm[Hg] [facility] Heart rate 2022-04-26 00:21:00 98 /min [facility] Body temperature 2022-04-26 00:21:00 36.72 Irene [facility] Respiratory rate 2022-04-26 00:21:00 18 /min [facility] Body height 2022-04-26 00:21:[address] [facility] Body weight 2022-04-26 00:21:00 54.432 kg [facility] BMI 2022-04-26 00:21:00 22.67 kg/m2 [facility] Oxygen saturation in Arterial blood by Pulse oximetry 2022-04-26 00:21:00 100 /min [facility] Systolic blood pressure 2022-04-09 14:39:00 122 mm[Hg] [facility] Diastolic blood pressure 2022-04-09 14:39:00 84 mm[Hg] [facility] Heart rate 2022-04-09 14:39:00 96 /min [facility] Body height 2022-04-09 14:39:00 154.9 cm [facility] Body weight 2022-04-09 14:39:00 60.328 kg [facility] BMI 2022-04-09 14:39:00 25.13 kg/m2 [facility] Oxygen saturation in Arterial blood by Pulse oximetry 2022-04-09 14:39:00 98 /min [facility] Systolic blood pressure 2022-04-07 22:43:36 131 mm[Hg] [facility] Diastolic blood pressure 2022-04-07 22:43:36 83 mm[Hg] [facility] Heart rate 2022-04-07 22:43:36 113 /min [facility] Respiratory rate 2022-04-07 22:43:36 18 /min [facility] Oxygen saturation in Arterial blood by Pulse oximetry 2022-04-07 22:43:36 97 /min [facility] Body temperature 2022-04-07 19:41:00 37.17 Irene [facility] Body height 2022-04-07 19:41:00 154.9 cm [facility] Body weight 2022-04-07 19:41:00 60.328 kg [facility] BMI 2022-04-07 19:41:00 25.13 kg/m2 [facility] Systolic blood pressure 2022-03-24 19:00:00 125 mm[Hg] [facility] Diastolic blood pressure 2022-03-24 19:00:00 86 mm[Hg] [facility] Heart rate 2022-03-24 19:00:00 93 /min [facility] Respiratory rate 2022-03-24 19:00:00 17 /min [facility] Oxygen saturation in Arterial blood by Pulse oximetry 2022-03-24 19:00:00 97 /min [facility] Body temperature 2022-03-24 13:33:00 36.78 Irene [facility] Systolic blood pressure 2022-03-15 19:23:00 128 mm[Hg] [facility] Diastolic blood pressure 2022-03-15 19:23:00 89 mm[Hg] [facility] Heart rate 2022-03-15 19:23:00 104 /min [facility] Body weight 2022-03-15 19:23:00 60.328 kg [facility] BMI 2022-03-15 19:23:00 25.13 kg/m2 [facility] Oxygen saturation in Arterial blood by Pulse oximetry 2022-03-15 19:23:00 98 /min [facility] Systolic blood pressure 2022-03-15 15:02:00 115 mm[Hg] [facility] Diastolic blood pressure 2022-03-15 15:02:00 70 mm[Hg] [facility] Heart rate 2022-03-15 15:02:00 85 /min [facility] Respiratory rate 2022-03-15 15:02:00 20 /min [facility] Oxygen saturation in Arterial blood by Pulse oximetry 2022-03-15 15:02:00 99 /min [facility] Body temperature 2022-03-15 13:38:00 36.94 Irene [facility] Body height 2022-03-15 13:38:00 154.9 cm [facility] Body weight 2022-03-15 13:38:00 54.432 kg [facility] BMI 2022-03-15 13:38:00 22.67 kg/m2 [facility] Systolic blood pressure 2022-03-11 16:30:00 124 mm[Hg] [facility] Diastolic blood pressure 2022-03-11 16:30:00 88 mm[Hg] [facility] Heart rate 2022-03-11 16:30:00 93 /min [facility] Body temperature 2022-03-11 16:30:00 36.67 Irene [facility] Respiratory rate 2022-03-11 16:30:00 14 /min [facility] Oxygen saturation in Arterial blood by Pulse oximetry 2022-03-11 16:30:00 100 /min [facility] Body height 2022-03-11 14:19:00 154.9 cm [facility] Body weight 2022-03-11 14:19:00 58.968 kg [facility] BMI 2022-03-11 14:19:00 24.56 kg/m2 Univ [facility] Systolic blood pressure 2022-02-27 14:14:00 140 mm[Hg] [facility] Diastolic blood pressure 2022-02-27 14:14:00 90 mm[Hg] [facility] Heart rate 2022-02-27 14:14:00 103 /min [facility] Body height 2022-02-27 14:14:00 154.9 cm [facility] 2022-02-27 14:14:00 59.194 kg [facility] BMI 2022-02-27 14:14:00 24.66 kg/m2 [facility] Oxygen saturation in Arterial blood by Pulse oximetry 2022-02-27 14:14:00 100 /min [facility] Systolic blood pressure 2022-02-27 13:19:00 131 mm[Hg] [facility] Diastolic blood pressure 2022-02-27 13:19:00 86 mm[Hg] [facility] Heart rate 2022-02-27 13:19:00 102 /min [facility] Body temperature 2022-02-27 13:19:00 36.33 Irene [facility] Body height 2022-02-27 13:19:00 154.9 cm [facility] Body weight 2022-02-27 13:19:00 58.968 kg [facility] BMI 2022-02-27 13:19:00 24.56 kg/m2 Univ [facility] Oxygen saturation in Arterial blood by Pulse oximetry 2022-02-27 13:19:00 99 /min [facility] Systolic blood pressure 2022-02-21 08:06:00 135 mm[Hg] [facility] Diastolic blood pressure 2022-02-21 08:06:00 97 mm[Hg] [facility] Heart rate 2022-02-21 08:06:00 98 /min [facility] Respiratory rate 2022-02-21 08:06:00 16 /min [facility] Oxygen saturation in Arterial blood by Pulse oximetry 2022-02-21 08:06:00 97 /min [facility] Body temperature 2022-02-21 06:16:00 36.94 Irene [facility] Body height 2022-02-21 06:16:00 154.9 cm [facility] Body weight 2022-02-21 06:16:00 60.963 kg [facility] BMI 2022-02-21 06:16:00 25.39 kg/m2 [facility] Systolic blood pressure 2022 20:08:00 136 mm[Hg] [facility] Diastolic blood pressure 2022 20:08:00 96 mm[Hg] [facility] Heart rate 2022 20:08:00 100 [facility]22 20:08:00 20 /min [facility] Oxygen saturation in Arterial blood by Pulse oximetry 2022 20:08:00 98 /min [facility] Body temperature 2022 16:56:00 37.06 Irene [facility] Body weight 2022 16:56:00 54.432 kg [facility] BMI 2022 16:56:00 22.67 kg/m2 [facility] Systolic blood pressure 2022-02-05 14:31:00 128 mm[Hg] [facility] Diastolic blood pressure 2022-02-05 14:31:00 84 mm[Hg] [facility] Heart rate 2022-02-05 14:31:00 86 /min [facility] Body temperature 2022-02-05 14:31:00 37.89 Irene [facility] Respiratory rate 2022-02-05 14:31:00 18 /min [facility] Body height 2022-02-05 14:31:00 154.9 cm [facility] Body weight 2022-02-05 14:31:00 54.432 kg [facility] BMI 2022-02-05 14:31:00 22.67 kg/m2 [facility] Oxygen saturation in Arterial blood by Pulse oximetry 2022-02-05 14:31:00 98 /min [facility] Systolic blood pressure 2022-01-18 14:50:00 144 mm[Hg] [facility] Diastolic blood pressure 2022-01-18 14:50:00 92 mm[Hg] [facility] Heart rate 2022-01-18 14:50:00 94 /min [facility] Respiratory rate 2022-01-18 14:50:00 20 /min [facility] Oxygen saturation in Arterial blood by Pulse oximetry 2022-01-18 14:50:00 99 /min [facility] Body weight 2022-01-18 10:18:00 54.432 kg [facility] BMI 2022-01-18 10:18:00 22.67 kg/m2 [facility] Body temperature 2022-01-18 10:15:00 36.72 Irene [facility] Systolic blood pressure 2022-01-15 15:48:26 125 mm[Hg] [facility] Diastolic blood pressure 2022-01-15 15:48:26 85 mm[Hg] [facility] Heart rate 2022-01-15 15:48:26 95 /min [facility] Res[facility] rate 2022-01-15 15:48:26 18 /min [facility] Oxygen saturation in Arterial blood by Pulse oximetry 2022-01-15 15:48:26 98 /min [facility] Body temperature 2022-01-15 13:32:00 37.11 Irene [facility] Body height 2022-01-15 13:32:00 154.9 cm [facility] Body weight 2022-01-15 13:32:00 54.432 kg [facility] BMI 2022-01-15 13:32:00 22.67 kg/m2 [facility] Systolic blood pressure 2022-01-09 00:37:11 127 mm[Hg] [facility] Diastolic blood pressure 2022-01-09 00:37:11 90 mm[Hg] [facility] Heart rate 2022-01-09 00:37:11 94 /min [facility] Body temperature 2022-01-09 00:37:11 37.11 Irene [facility] Respiratory rate 2022-01-09 00:37:11 16 /min [facility] Oxygen saturation in Arterial blood by Pulse oximetry 2022-01-09 00:37:11 97 /min [facility] Body height 2022-01-08 23:03:00 154.9 cm [facility] Body weight 2022-01-08 23:03:00 58.06 kg [facility] BMI 2022-01-08 23:03:00 24.19 kg/m2 [facility] Systolic blood pressure 2021-12-12 18:00:00 126 mm[Hg] [facility] Diastolic blood pressure 2021-12-12 18:00:00 87 mm[Hg] [facility] Heart rate 2021-12-12 18:00:00 86 /min [facility] Body temperature 2021-12-12 18:00:00 36.89 Irene [facility] Respiratory rate 2021-12-12 18:00:00 18 /min [facility] Body height 2021-12-12 18:00:[address] [facility] Body weight 2021-12-12 18:00:00 57.153 kg [facility] BMI 2021-12-12 18:00:00 23.81 kg/m2 Univ [facility] Systolic blood pressure 2023-01-14 16:32:00 138 mm[Hg] [facility] Diastolic blood pressure 2023-01-14 16:32:00 84 mm[Hg] [facility] Heart rate 2023-01-14 16:32:00 67 /min [facility] Body temperature 2023-01-14 16:32:00 36.5 Irene [facility] Respiratory rate 2023-01-14 16:32:00 16 /min [facility] Oxygen saturation in Arterial blood by Pulse oximetry 2023-01-14 16:32:00 99 /min [facility] Body height 2023-01-12 09:05:00 154.9 cm [facility] Body weight 2023-01-12 09:05:00 58.968 kg [facility] BMI 2023-01-12 09:05:00 24.56 kg/m2 [facility] Procedures Procedure Date / Time Performed Performing Clinician Source CT ABDOMEN PELVIS WO CONTRAST 2024-08-16 14:27:56 Leonela Veloz [facility] POCT TEST 2024-08-16 13:22:00 Leonela Veloz [facility] LIPASE 2024-08-16 13:17:00 Leonela Veloz [facility] COMP. METABOLIC PANEL ([id number]) 2024-08-16 13:17:00 Leonela Veloz [facility] CBC WITH DIFF 2024-08-16 13:17:00 Leonela Veloz [facility] URINALYSIS 2024-08-16 13:17:00 Leonela Veloz [facility] POCT TEST 2024-05-19 20:10:00 Anamaria Gonzales [facility] LIPASE 2024-05-19 19:53:00 Anamaria Gonzales [facility] COMP. METABOLIC PANEL ([id number]) 2024-05-19 19:53:00 Anamaria Gonzales [facility] CBC WITH DIFF 2024-05-19 19:53:00 Christian Anamaria [facility] URINALYSIS 2024-05-19 19:53:00 Anamaria Gonzales [facility] CT ABDOMEN PELVIS WO CONTRAST 2024-04-19 14:51:33 Rosendo Levy [facility] POCT TEST 2024-04-19 14:21:00 Rosendo Levy [facility] LIPASE 2024-04-19 14:18:00 Rosendo Levy [facility] COMP. METABOLIC PANEL ([id number]) 2024-04-19 14:18:00 Rosendo Levy [facility] CBC WITH DIFF 2024-04-19 14:18:00 Rosendo Levy [facility] URINALYSIS 2024-04-19 14:18:00 Rosendo Levy [facility] XR ANKLE <3 VW LEFT 2024-04-12 18:36:00 Niranjan Neeta [facility] XR FOOT <3 VW LEFT 2024-04-12 18:36:00 Niranjan [facility] XR TIBIA FIBULA 2 VW LEFT 2024-04-12 18:36:00 Niranjan Neeta [facility] CT TRAUMA HEAD WO CONTRAST 2024-04-12 18:27:49 [facility] CT TRAUMA CERVICAL SPINE WO CONTRAST 2024-04-12 18:27:49 [facility] CT TRAUMA THORACIC SPINE WO CONTRAST 2024-04-12 18:27:49 Micheleknifley [facility] CT TRAUMA LUMBAR SPINE WO CONTRAST 04-12 18:27:49 Niranjan [facility] XR CHEST 1 VW 2024-04-12 15:50:27 Maggie Hamilton [facility] COMP. METABOLIC PANEL ([id number]) 2024-04-12 15:43:00 Maggie Hamilton [facility] CBC WITH DIFF 2024-04-12 15:43:00 Maggie Hamilton [facility] HB ABO GROUPING 2024-04-12 15:43:00 Maggie Hamilton [facility] ER FAST ULTRASOUND 2024-04-12 15:36:51 Maggie Hamilton [facility] MAGNESIUM 2024-03-13 10:20:00 Ellis Burgess [facility] BASIC METABOLIC PANEL (NA, K , CL, CO2, GLUCOSE, BUN, CREATININE, CA) 2024-03-13 10:20:00 Ellis Burgess [facility] CBC WITH DIFF 2024-03-13 10:20:00 Ellis Burgess [facility] FECAL PATHOGENS BY PCR 2024-03-12 17:51:00 [facility]FFIC[facility] TOXIN 2024-03-12 17:50:00 [facility] C. DIFFICILE TOXIN B GENE (TCDB) BY PCR 2024-03-12 17:50:00 [facility] SUPERIOR MESENTERIC ARTERY D UPLEX - BY VASCULAR LAB 2024-03-12 14:06:02 [facility] 2024-03-12 11:14:00 [facility] BASIC METABOLIC PANEL (NA, K , CL, CO2, GLUCOSE, BUN, CREATININE, CA) 2024-03-12 11:14:00 Mars [facility] CBC WITHOUT DIFF 2024-03-12 11:14:00 Hedypapaulo [facility] MAGNESIUM 2024-03-11 10:47:00 Kitty [facility] BASIC METABOLIC PANEL (NA, K , CL, CO2, GLUCOSE, BUN, CREATININE, CA) 2024-03-11 10:47:00 Kitty [facility] CBC WITH DIFF 2024-03-11 10:47:00 Kitty [facility] CT ABDOMEN PELVIS WO CONTRAST 2024-03-10 19:46:10 [facility] LIPASE 2024-03-10 15:42:00 Venkat [facility] TEST, SERUM 2024-03-10 15:42:00 Fidel [facility] COMP. METABOLIC PANEL ([id number]) 2024-03-10 15:42:00 Venkat [facility] URINE DRUG (IMMUNOASSAY) - COMPREHENSIVE DRUG SCREEN 2024-03-10 15:42:00 Kitty [facility] CBC WITH DIFF 2024-03-10 15:42:00 Venkat [facility] URINALYSIS 2024-03-10 15:42:00 Venkat [facility] EXTRA TUBE DK. GREEN 2024-03-10 15:42:[address] [facility] [address] ABDOMEN PELVIS WO CONTRAST 2024-03-04 13:43:16 Alexander Richard [facility] POCT TEST 2024-03-04 13:14:00 Alexander Richard [facility] LIPASE 2024-03-04 13:13:00 Alexander Richard [facility] COMP. METABOLIC PANEL ([id number]) 2024-03-04 13:13:00 Alexander Richard [facility] CBC WITH DIFF 2024-03-04 13:13:00 Alexander Richard [facility] URINALYSIS 2024-03-04 13:13:00 Alexander Richard [facility] ENDOSCOPY PROCEDURE DOCUMENTATION 2023-05 018 14:46:53 Doctor Unassigned, [place] [facility] FLEXIBLE SIGMOIDOSCOPY (ENDO) 2024-02-27 15:42:37 Hany Lee [facility] FLEXIBLE SIGMOIDOSCOPY (ENDO) 2024-02-27 15:42:37 Hany Lee [facility] EGD (ENDO) 2024-02-27 15:39:44 Hany Lee [facility] EGD (ENDO) 2024-02-27 15:39:44 Hany Lee [facility] ESOPHAGOGASTRODUODENOSCOPY 2024-02-27 14:11:00 Chitra Jas [facility] FLEXIBLE SIGMOIDOSCOPY 2024-02-27 14:11:00 Jas Buenrostro [facility] MAGNESIUM 2024-02-27 09:37:00 Jose Carlos Urbina [facility] HEPATIC FUNCTION PANEL (8007 6) (ALB,T.PRO,BILI T,BU/BC,ALT,AST,ALK PHOS) 2024-02-27 09:37:00 Jose Carlos Urbina [facility] BASIC METABOLIC PANEL (NA, K , CL, CO2, GLUCOSE, BUN, CREATININE, CA) 2024-02-27 09:37:00 Jose Carlos Urbina [facility] CBC WITH DIFF 2024-02-27 09:37:00 Jose Carlos Urbina [facility] MAGNESIUM 2024-02-27 09:37:00 Jose Carlos Urbina [facility] HEPATIC FUNCTION PANEL (8007 6) (ALB,T.PRO,BILI T,BU/BC,ALT,AST,ALK PHOS) 2024-02-27 09:37:00 Jose Carlos Urbina [facility] BASIC METABOLIC PANEL (NA, K , CL, CO2, GLUCOSE, BUN, CREATININE, CA) 2024-02-27 09:37:00 Jose Carlos Urbina [facility] CBC WITH DIFF 2024-02-27 09:37:00 Jose Carlos Urbina [facility] CALPROTECTIN, FECAL 2024-02-26 22:49:00 Jose Carlos Urbina Artur [facility] CALPROTECTIN, FECAL 2024-02-26 22:49:00 Jose Carlos Urbina [facility] XR KUB 2024-02-26 20:00:00 Jose Carlos Urbina [facility] XR KUB 2024-02-26 20:00:00 Jose Carlos Urbina [facility] MAGNESIUM 2024-02-26 16:17:00 Chitra [facility] HEPATIC FUNCTION PANEL (8007 6) (ALB,T.PRO,BILI T,BU/BC,ALT,AST,ALK PHOS) 2024-02-26 16:17:00 Chitra [facility] BASIC METABOLIC PANEL (NA, K , CL, CO2, GLUCOSE, BUN, CREATININE, CA) 2024-02-26 16:17:00 Chitra [facility] PROTHROMBIN TIME / INR 2024-02-26 16:17:00 [facility] 2024-02-26 16:17:00 Chitra [facility] HEPATIC FUNCTION PANEL (8007 6) (ALB,T.PRO,BILI T,BU/BC,ALT,AST,ALK PHOS) 2024-02-26 16:17:00 Chitra [facility] BASIC METABOLIC PANEL (NA, K , CL, CO2, GLUCOSE, BUN, CREATININE, CA) 2024-02-26 16:17:00 Chitra [facility] PROTHROMBIN TIME / INR 2024-02-26 16:17:00 Chitra Naty [facility] MR ABDOMEN W WO CONTRAST MRCP 2024-02-25 17:15:21 [facility] WO CONTRAST MRCP 2024-02-25 17:15:21 [facility] CREATINE KINASE 2024-02-25 10:52:00 [facility] (8007 6) (ALB,T.PRO,BILI T,BU/BC,ALT,AST,ALK PHOS) 2024-02-25 10:52:00 Jose Carlos Urbina [facility] BASIC METABOLIC PANEL (NA, K , CL, CO2, GLUCOSE, BUN, CREATININE, CA) 2024-02-25 10:52:00 Jose Carlos Urbina [facility] CREATINE KINASE 2024-02-25 10:52:00 [facility] PANEL (8007 6) (ALB,T.PRO,BILI T,BU/BC,ALT,AST,ALK PHOS) 2024-02-25 10:52:00 Jose Carlos Urbina [facility] BASIC METABOLIC PANEL (NA, K , CL, CO2, GLUCOSE, BUN, CREATININE, CA) 2024-02-25 10:52:00 Jose Carlos Urbina [facility] MAGNESIUM 2024-02-24 09:54:00 Naty Buenrostro [facility] HEPATIC FUNCTION PANEL (8007 6) (ALB,T.PRO,BILI T,BU/BC,ALT,AST,ALK PHOS) 2024-02-24 09:54:00 Jose Carlos Urbina [facility] BASIC METABOLIC PANEL (NA, K , CL, CO2, GLUCOSE, BUN, CREATININE, CA) 2024-02-24 09:54:00 Jose Carlos Urbina [facility] CBC WITH DIFF 2024-02-24 09:54:00 Naty Buenrostro [facility] MAGNESIUM 2024-02-24 09:54:00 [facility] (8007 6) (ALB,T.PRO,BILI T,BU/BC,ALT,AST,ALK PHOS) 2024-02-24 09:54:00 Jose Carlos Urbina [facility] BASIC METABOLIC PANEL (NA, K , CL, CO2, GLUCOSE, BUN, CREATININE, CA) 2024-02-24 09:54:00 Jose Carlos Urbina [facility] CBC WITH DIFF 2024-02-24 09:54:00 Naty Buenrostro [facility] POCT GLUCOSE (AUTOMATED) 2024-02-24 01:34:00 Hany Lee [facility] POCT GLUCOSE (AUTOMATED) 2024-02-24 01:34:00 Hany Lee [facility] HEPATIC FUNCTION PANEL (8007 6) (ALB,T.PRO,BILI T,BU/BC,ALT,AST,ALK PHOS) 2024-02-23 17:51:00 Chitra [facility] CBC WITH DIFF 2024-02-23 17:51:00 Chitra [facility] HAV ANTIBODY (IGG AND IGM) 2024-02-23 17:51:00 Chitra [facility] ENDOMYSIAL AB, IGA BY IFA 2024-02-23 17:51:00 Chitra [facility] VITAMIN D, 25-OH 2024-02-23 17:51:00 Chitra [facility] HEPATIC FUNCTION PANEL (8007 6) (ALB,T.PRO,BILI T,BU/BC,ALT,AST,ALK PHOS) 2024-02-23 17:51:00 Chitra [facility] CBC WITH DIFF 2024-02-23 17:51:00 Chitra [facility] HAV ANTIBODY (IGG AND IGM) 2024-02-23 17:51:00 Chitra [facility] ENDOMYSIAL AB, IGA BY IFA 2024-02-23 17:51:00 Chitra [facility] VITAMIN D, 25-OH 2024-02-23 17:51:00 Chitra [facility] INFLUENZA A/B RSV COVID NAAT 2024-02-22 20:12:00 [facility] COVID INTERPRETATION 2024-02-22 20:12:00 [facility]/B RSV COVID NAAT 2024-02-22 20:12:00 [facility] COVID INTERPRETATION 2024-02-22 20:12:00 Naty Buenrostro [facility] XR CHEST 2 VW 2024-02-22 17:16:00 [facility], Adriana [facility] XR CHEST 2 VW 2024-02-22 17:16:00 [facility], Adriana [facility] US ABDOMEN LIMITED 2024-02-22 16:59:52 [facility], Adriana [facility] US ABDOMEN LIMITED 2024-02-22 16:59:52 [facility], Adriana [facility] LIPASE 2024-02-22 15:19:00 Stephanie Warren [facility] TEST, SERUM 2024-02-22 15:19:00 Stephanie Warren [facility] C-REACTIVE PROTEIN 2024-02-22 15:19:00 Chitra [facility] TROPONIN I 2024-02-22 15:19:00 Stephanie Warren [facility] HEPATIC FUNCTION PANEL (8007 6) (ALB,T.PRO,BILI T,BU/BC,ALT,AST,ALK PHOS) 2024-02-22 15:19:00 [facility] COMP. METABOLIC PANEL ([id number]) 2024-02-22 15:19:00 Stephanie Warren [facility] URINE DRUG (IMMUNOASSAY) - COMPREHENSIVE DRUG SCREEN 2024-02-22 15:19:00 [facility] SED[facility]ATE 2024-02-22 15:19:00 [facility] WITH DIFF 2024-02-22 15:19:00 [facility] URINALYSIS 2024-02-22 15:19:00 [facility]ODY 2024-02-22 15:19:00 [facility] B SURFACE ANTIGEN 2024-02-22 15:19:00 Chitra [facility] HCV ANTIBODY 2024-02-22 15:19:00 Chitra [facility] HBC ANTIBODY (IGM & IGG) 2024-02-22 15:19:00 Chitra [facility] HIV 1/2 AG-AB WITH REFLEX 2024-02-22 15:19:00 Chitra [facility] DEAMIDATED GLIADIN IGG 2024-02-22 15:19:00 Chitra [facility] LIPASE 2024-02-22 15:19:00 Stephanie Warren [facility] TEST, SERUM 2024-02-22 15:19:00 Stephanie Warren [facility] C-REACTIVE PROTEIN 2024-02-22 15:19:00 Chitra [facility] TROPONIN I 2024-02-22 15:19:00 Stephanie Warren [facility] HEPATIC FUNCTION PANEL (8007 6) (ALB,T.PRO,BILI T,BU/BC,ALT,AST,ALK PHOS) 2024-02-22 15:19:00 Chitra [facility] COMP. METABOLIC PANEL ([id number]) 2024-02-22 15:19:00 Stephanie Warren [facility] URINE DRUG (IMMUNOASSAY) - COMPREHENSIVE DRUG SCREEN 2024-02-22 15:19:00 Chitra [facility] SEDIMENTATION RATE 2024-02-22 15:19:00 Chitra [facility] CBC WITH DIFF 2024-02-22 15:19:00 Stephanie Warren [facility] URINALYSIS 2024-02-22 15:19:00 Stephanie Warren [facility] HEPATITIS B SURFACE ANTIBODY 2024-02-22 15:19:00 Chitra [facility] HEPATITIS B SURFACE ANTIGEN 2024-02-22 15:19:00 [facility]TIBODY 2024-02-22 15:19:00 Chitra [facility] HBC ANTIBODY (IGM & IGG) 2024-02-22 15:19:00 [facility]/2 [facility]-AB WITH REFLEX 2024-02-22 15:19:00 Chitra [facility] DEAMIDATED GLIADIN IGG 2024-02-22 15:19:00 Chitra [facility] COMP. METABOLIC PANEL ([id number]) 2023-05-19 17:22:00 Verito [facility] CT ABDOMEN PELVIS W CONTRAST 2023-05-19 15:59:54 Verito [facility] LIPASE 2023-05-19 15:43:00 Verito [facility] CBC WITH DIFF 2023-05-19 15:43:00 Verito [facility] URINALYSIS 2023-05-19 15:32:00 Verito [facility] POCT TEST 2023-05-19 15:31:00 Verito [facility] CONSENT/REFUSAL FOR DIAGNOSI S AND TREATMENT 2023-05-19 14:37:15 Doctor Unassigned, [place] [facility] PHOSPHORUS 2023-01-15 08:15:00 Benita Rockwell Daphnie [facility] MAGNESIUM 2023-01-15 08:15:00 Benita Rockwell Daphnie [facility] BASIC METABOLIC PANEL (NA, K , CL, CO2, GLUCOSE, BUN, CREATININE, CA) 2023-01-15 08:15:00 Benita Rockwell Daphnie [facility] CBC WITH DIFF 2023-01-15 08:15:00 Benita Rockwell Daphnie [facility] PROTHROMBIN TIME / INR 2023-01-15 08:15:00 Benita Rockwell Daphnie [facility] MAGNESIUM 2023-01-14 10:14:00 Hill, Benita [facility] PHOSPHORUS 2023-01-14 10:14:00 [facility] (NA, K , CL, CO2, GLUCOSE, BUN, CREATININE, CA) 2023-01-14 10:14:00 [facility] WITH DIFF 2023-01-14 10:14:00 Moiz [facility] PHOSPHORUS 2023-01-14 10:14:00 [facility] 2023-01-14 10:14:00 Moiz [facility] BASIC METABOLIC PANEL (NA, K , CL, CO2, GLUCOSE, BUN, CREATININE, CA) 2023-01-14 10:14:00 Moiz [facility] CBC WITH DIFF 2023-01-14 10:14:00 Moiz [facility] CBC WITH DIFF 2023-01-13 10:45:00 Vaishnavi, [facility] BASIC METABOLIC PANEL (NA, K , CL, CO2, GLUCOSE, BUN, CREATININE, CA) 2023-01-13 10:45:00 Vaishnavi, [facility] MAGNESIUM 2023-01-13 10:45:00 Vaishnavi, [facility] PHOSPHORUS 2023-01-13 10:45:00 Vaishnavi, [facility] HEPATIC FUNCTION PANEL (8007 6) (ALB,T.PRO,BILI T,BU/BC,ALT,AST,ALK PHOS) 2023-01-13 10:45:00 Vaishnavi, [facility] PHOSPHORUS 2023-01-13 10:45:00 Vaishnavi, [facility] MAGNESIUM 2023-01-13 10:45:00 Vaishnavi, [facility] HEPATIC FUNCTION PANEL (8007 6) (ALB,T.PRO,BILI T,BU/BC,ALT,AST,ALK PHOS) 2023-01-13 10:45:00 Vaishnavi, [facility] BASIC METABOLIC PANEL (NA, K , CL, CO2, GLUCOSE, BUN, CREATININE, CA) 2023-01-13 10:45:00 Vaishnavi, [facility] CBC WITH DIFF 2023-01-13 10:45:00 Vaishnavi, [facility] GLUCOSE BODY FLUID 2023-01-12 20:44:00 Vaishnavi, [facility] BODY FLUID MANUAL DIFF 2023-01-12 20:44:00 Vaishnavi, [facility] T.PROTEIN BODY FLUID 2023-01-12 20:44:00 Vaishnavi, [facility] ASPIRATE OR ABSCESS CULTURE(AEROBIC/ANAEROBIC) 2023-01-12 20:44:00 Vaishnavi, [facility] LDH TOTAL BODY FLUID 2023-01-12 20:44:00 Vaishnavi, [facility] GLUCOSE BODY FLUID 2023-01-12 20:44:00 Vaishnavi, [facility] T.PROTEIN BODY FLUID 2023-01-12 20:44:00 Vaishnavi, [facility] BODY FLUID DIRECT COUNT 2023-01-12 20:44:00 Vaishnavi, [facility] ASPIRATE OR ABSCESS CULTURE(AEROBIC/ANAEROBIC) 2023-01-12 20:44:00 Vaishnavi, [facility] TOTAL BODY FLUID 2023-01-12 20:44:00 Vaishnavi, [facility] PROTHROMBIN TIME / INR 2023-01-12 08:13:00 Vaishnavi, [facility] PROTHROMBIN TIME / INR 2023-01-12 08:13:00 Vaishnavi, [facility] COMP. METABOLIC PANEL (07849) 2023-01-12 03:49:00 Ricky Zehra [facility] COMP. METABOLIC PANEL (72002) 2023-01-12 03:49:00 Zehra García [facility] CT ABDOMEN PELVIS W CONTRAST 2023-01-12 03:32:06 Zehra García Joana [facility] CT ABDOMEN PELVIS W CONTRAST 2023-01-12 03:32:06 Zehra García [facility] POCT TEST 2023-01-12 03:02:00 Zehra García [facility] POCT TEST 2023-01-12 03:02:00 Zehra García [facility] URINALYSIS 2023-01-12 02:56:00 Zehra García [facility] LIPASE 2023-01-12 02:56:00 [facility] 2023-01-12 02:56:00 [facility] CBC WITH DIFF 2023-01-12 02:56:00 [facility] EXTRA TUBE ORANGE 2023-01-12 02:56:00 [facility] LAV 2023-01-12 02:56:00 [facility] 2023-01-12 02:56:00 Ricky [facility] TOTAL BETA HCG ASSAY 2023-01-12 02:56:00 Zehra García [facility] CBC WITH DIFF 2023-01-12 02:56:00 [facility] 2023-01-12 02:56:00 [facility] EXTRA TUBE LAV 2023-01-12 02:56:00 [facility] EXTRA TUBE ORANGE 2023-01-12 02:56:00 Artur [facility] CONSENT/REFUSAL FOR DIAGNOSI S AND TREATMENT 2023-01-12 01:46:10 Doctor Unassigned, [place] [facility] CONSENT/REFUSAL FOR DIAGNOSI S AND TREATMENT 2023-01-12 01:46:10 Doctor Unassigned, [place] [facility] ASSIGNMENT OF BENEFITS 2022-11-21 19:49:02 Doctor Unassigned, [place] [facility] ASSIGNMENT OF BENEFITS 2022-11-21 19:49:02 Doctor Unassigned, [place] [facility] CONSENT/REFUSAL FOR DIAGNOSI S AND TREATMENT 2022-11-21 18:03:25 Doctor Unassigned, [place] [facility] CONSENT/REFUSAL FOR DIAGNOSI S AND TREATMENT 2022-11-21 18:03:25 Doctor Unassigned, [place] [facility] EMERGENCY SERVICES AGREEMENT S AND AUTHORIZATIONS 2022-11-21 05:01:00 Doctor Unassigned, [place] [facility] CONSENT/REFUSAL FOR DIAGNOSI S AND TREATMENT 2022-09-05 13:42:02 Doctor Unassigned, [place] [facility] LIPASE 2022-07-31 23:13:00 [facility] 2022-07-31 23:13:00 Blane [facility] COMP. METABOLIC PANEL (04795) 2022-07-31 23:13:00 Blane [facility] CBC WITH DIFF 2022-07-31 23:13:00 Blane [facility] CONSENT/REFUSAL FOR DIAGNOSI S AND TREATMENT 2022-07-31 22:49:17 Doctor Unassigned, [place] [facility] XR ANKLE 3+ VW RIGHT 2022-07-15 16:00:00 Beba Kaur [facility] XR FOOT 3+ VW RIGHT 2022-07-15 16:00:00 Beba Kaur [facility] XR FOOT 3+ VW RIGHT 2022-07-15 16:00:00 Beba Kaur [facility] PATIENT FINANCIAL POLICY 2022-07-15 15:25:53 Doctor Unassigned, [place] [facility] POCT MOLECULAR STREP 2022-06-23 16:06:00 Unknown, Attending [facility] ASSIGNMENT OF BENEFITS 2022-06-23 15:18:28 Doctor Unassigned, [place] [facility] COMP. METABOLIC PANEL ([id number]) 2022-05-05 19:14:00 Karon Norton [facility] CBC WITH DIFF 2022-05-05 19:14:00 Karon Norton [facility] POCT TEST 2022-05-05 19:00:00 Karon Norton [facility] URINALYSIS 2022-05-05 18:58:00 Karon Norton [facility] CT ABDOMEN PELVIS WO CONTRAST 2022-04-26 15:11:00 Singer [facility] COMP. METABOLIC PANEL ([id number]) 2022-04-26 14:49:00 Singer [facility] CBC WITH DIFF 2022-04-26 14:49:00 Singer [facility] URINALYSIS 2022-04-26 14:49:00 Singer [facility] POCT TEST 2022-04-26 14:45:00 Singer [facility] CONSENT/REFUSAL FOR DIAGNOSI S AND TREATMENT 2022-04-26 14:22:29 Doctor Unassigned, [place] [facility] POCT TEST 2022-04-26 01:22:00 Singer [facility] ASSIGNMENT OF BENEFITS 2022-04-26 00:54:02 Doctor Unassigned, [place] [facility] URINALYSIS 2022-04-26 00:45:00 Singer [facility] CONSENT/REFUSAL FOR DIAGNOSI S AND TREATMENT 2022-04-26 00:16:47 Doctor Unassigned, [place] [facility] BASIC METABOLIC PANEL (NA, K , CL, CO2, GLUCOSE, BUN, CREATININE, CA) 2022-04-07 22:35:00 Olamide Garvin [facility] CBC WITH DIFF 2022-04-07 22:35:00 Olamide Garvin [facility] URINALYSIS 2022-04-07 21:36:00 Olamide Garvin [facility] URINE DRUG (IMMUNOASSAY) - COMPREHENSIVE DRUG SCREEN W/O REFLEX 2022-04-07 21:36:00 Olamide Garvin [facility] CONSENT/REFUSAL FOR DIAGNOSI S AND TREATMENT 2022-04-07 19:29:15 Doctor Unassigned, [place] [facility] POCT TEST 2022-03-24 14:07:00 Kellie Piper [facility] CONSENT/REFUSAL FOR DIAGNOSI S AND TREATMENT 2022-03-24 13:27:20 Doctor Unassigned, [place] [facility] CT ABDOMEN PELVIS WO CONTRAST 2022-03-15 14:09:04 Lydia Colmenares [facility] URINALYSIS 2022-03-15 13:53:00 Lydia Colmenares [facility] POCT TEST 2022-03-15 13:52:00 Lydia Colmenares [facility] CONSENT/REFUSAL FOR DIAGNOSI S AND TREATMENT 2022-03-15 13:37:02 Doctor Unassigned, [place] [facility] POCT TEST 2022-03-11 14:59:00 Angelica Viveros [facility] FLU VACC (), 6 MO-6 4 YRS, .5ML, IM, QUAD (FLUCELVAX) 2022-02-27 13:34:55 Ca Martinez [facility] NOTICE OF PRIVACY PRACTICES 2022-02-21 06:06:30 Doctor Unassigned, [place] [facility] CONSENT/REFUSAL FOR DIAGNOSI S AND TREATMENT 2022-02-21 06:03:41 Doctor Unassigned, [place] [facility] XR ANKLE <3 VW RIGHT 2022 17:56:42 Maggie Hamilton [facility] CT ABDOMEN PELVIS W CONTRAST 2022 17:44:17 Maggie Hamilton [facility] CT TRAUMA CERVICAL SPINE WO CONTRAST 2022 17:43:49 Maggie Hamilton [facility] POCT TEST 2022 17:27:00 Maggie Hamilton [facility] COMP. METABOLIC PANEL (57402) 2022 17:17:00 Maggie Hamilton [facility] CBC WITH DIFF 2022 17:17:00 Maggie Hamilton [facility] CONSENT/REFUSAL FOR DIAGNOSI S AND TREATMENT 2022 16:53:13 Doctor Unassigned, [place] [facility] US GALL BLADDER 2022-01-18 12:31:09 Rosendo Levy [facility] US PELVIS COMPLETE WITH TRANSVAGINAL 2022-01-18 12:21:13 Melvin Zhao [facility] CT ABDOMEN PELVIS W CONTRAST 2022-01-18 11:20:50 Melvin Zhao [facility] POCT TEST 2022-01-18 10:57:00 Juan Kennedy [facility] COVID-19 (ID NOW RAPID TESTING) 10:57:00 Juan Kennedy [facility] URINALYSIS 2022-01-18 10:47:00 Juan Kennedy [facility] LIPASE 2022-01-18 10:29:00 Juan Kennedy [facility] TEST, SERUM 2022-01-18 10:29:00 Juan Kennedy [facility] HEPATIC FUNCTION PANEL (8007 6) (ALB,T.PRO,BILI T,BU/BC,ALT,AST,ALK PHOS) 2022-01-18 10:29:00 Juan Kennedy [facility] BASIC METABOLIC PANEL (NA, K , CL, CO2, GLUCOSE, BUN, CREATININE, CA) 2022-01-18 10:29:00 Juan Kennedy [facility] CBC WITH DIFF 2022-01-18 10:29:00 Juan Kennedy [facility] CONSENT/REFUSAL FOR DIAGNOSI S AND TREATMENT 2022-01-18 10:13:31 Doctor Unassigned, [place] [facility] CT HEAD WO CONTRAST 2022-01-15 15:22:29 Maura Cox [facility] TEST, SERUM 2022-01-15 14:36:00 Maura Cox [facility] BASIC METABOLIC PANEL (NA, K , CL, CO2, GLUCOSE, BUN, CREATININE, CA) 2022-01-15 14:36:00 Maura Cox [facility] CBC WITH DIFF 2022-01-15 14:36:00 Maura Cox [facility] CONSENT/REFUSAL FOR DIAGNOSI S AND TREATMENT 2022-01-15 13:28:12 Doctor Unassigned, [place] [facility] XR CERVICAL SPINE 4 VW 2022-01-09 00:29:16 Gabriela [facility] XR LUMBAR SPINE 4 VW 2022-01-09 00:29:16 Gabriela [facility] XR SPINE THORACIC 3 VW 2022-01-09 00:29:16 Gabriela [facility] URINALYSIS 2022-01-08 23:50:00 Hubmerto Ochoa [facility] CONSENT/REFUSAL FOR DIAGNOSI S AND TREATMENT 2022-01-08 22:51:08 Doctor Unassigned, [place] [facility] GALV ONLY - VAGINAL PATHOGEN S BY NUCLEIC ACID TESTING 2021-12-12 18:37:00 Prasanna Vargas [facility] URINE CULTURE 2021-12-12 18:32:00 Prasanna Vargas [facility] POCT TEST 2021-12-12 18:31:00 Prasanna Vargas [facility] POCT URINALYSIS W/O SPECIFIC GRAVITY 2021-12-12 18:31:00 Prasanna Vargas [facility] Encounters Start Date/Time End Date/Time Encounter Type Admission Type Attending [facility] Care Facility Care Department Encounter ID Source 2024-08-04 08:31:01 Outpatient Tiara Dorado [facility] [id number] [facility] 2021-03-14 03:14:31 Emergency [facility] [id number] [facility] 2021-03-13 20:05:20 [id number] 2021-03-13 12:48:28 [facility] [id number] 2021-03-13 02:43:51 [facility] [id number] 2021-03-13 00:27:09 [facility] [id number] 2021-03-12 22:10:36 Emergency [facility] [id number] [facility] 2021-03-12 20:04:05 Emergency [facility] [id number] [facility] 2021-03-12 15:25:05 Emergency [facility] [id number] [facility] 2021-03-12 11:43:36 Emergency [facility] [id number] [facility] 2021-03-12 07:41:37 [facility] [id number] [facility] 2021-03-12 05:43:47 [place] [facility] [place] [id number] [facility] 2021-03-12 03:43:41 Emergency [facility] [id number] [facility] 2021-03-12 01:31:27 Emergency [facility] [id number] [facility] 2021-03-12 00:56:44 Emergency X [facility] ERT [id number] [facility] 2021-03-12 00:56:31 Emergency [facility] [id number] [facility] 2021-03-11 17:47:02 Emergency [facility] [id number] [facility] 2021-03-11 16:27:15 Emergency [facility] [id number] [facility] 2021-03-11 12:00:58 Emergency [facility] [place] [id number] [facility] 2021-03-11 10:33:59 Emergency [facility] [place] [id number] [facility] 2021-03-11 01:36:52 Emergency [facility] [place] [id number] [facility] 2021-03-10 23:35:34 Emergency [facility] [id number] [facility] 2021-03-10 19:06:16 Emergency [facility] [id number] [facility] 2021-03-10 12:39:47 Emergency [facility] [id number] [facility] 2021-03-10 06:54:04 Emergency [place] [id number] [facility] 2021-03-09 13:25:44 Outpatient P [facility] [id number] [facility] 2021-03-09 13:08:01 Outpatient [facility] [id number] [facility] 2021-03-09 12:37:25 Outpatient [facility] [id number] [facility] 2021-03-09 11:51:20 Outpatient [facility] [id number] [facility] 2024-08-16 08:05:00 2024-08-16 10:57:00 Emergency X NANCYERJOSIE , LOENELA NANCYERJOSIE , LEONELA [facility] E[facility] [id number] [facility] 2024-08-16 08:05:00 2024-08-16 10:57:00 Emergency Nancyerjosie , Leonela Yarbrough [facility] 1.114 350.1.13.10 4.2.7.2.686 [id number] [facility] 2024-08-02 10:16:00 2024-08-02 12:25:00 Emergency X ALEKSANDR STEWART JULIO [facility] ERT [id number] [facility] 2024-08-02 10:16:00 2024-08-02 12:25:00 Emergency Aleksandr Stewart [facility] 1.114 350.1.13.10 4.2.7.2.686 [id number] [facility] 2024-07-27 17:21:07 2024-07-27 17:21:07 Outpatient [facility] [id number] Willis Gil 2024-02-28 00:00:00 2024-06-27 06:46:51 Orders Only Doctor Unassigned, [place] Doctor Unassigned, [place] [facility] 1.114 350.1.13.10 4.2.7.2.686 [id number] [facility] 2022-08-27 00:00:00 2024-06-27 02:42:04 Orders Only Palak Marrufo Perla [facility] MED[facility] OFF[facility] 1..114 350.1.13.10 4.2.7.2.686 [id number] [facility] 2022-08-28 00:00:00 2024-06-27 02:42:02 Orders Only Marrufo, Palak Marrufo, Palak [facility] ANGLEROBERTA TALYA?[facility] MED[facility] OFF[facility] BUILDING [id number] 350.1.13.10 4.2.7.2.686 [id number] [facility] 2022-08-29 00:00:00 2024-06-27 02:41:59 Orders Only Marrufo, Palak Marrufo, Palak [facility] [place] TALYA?[facility] MED[facility] OFFICE BUILDING [id number] 350.1.13.10 4.2.7.2.686 [id number] [facility] 2022-09-24 00:00:00 2024-06-27 02:41:25 Orders Only Marrufo, Palak Marrufo, Palak [facility] MED[facility] OFF[facility] BUILDING 1.2.840.114 350.1.13.10 4.2.7.2.686 [id number] [facility] 2022-09-27 00:00:00 2024-06-27 02:41:19 Orders Only Marrufo, Palak Marrufo, Palak [facility] TALYA?[facility] MED[facility] OFF[facility] BUILDING 1.2.840.114 350.1.13.10 4.2.7.2.686 [id number] [facility] 2022-10-02 00:00:00 2024-06-27 02:41:14 Orders Only Marrufo, Palak Marrufo, Palak [facility] [place] TALYA?[facility] MEDICAL OFFICE BUILDING 1.2.840.114 350.1.13.10 4.2.7.2.686 [id number] [facility] 2022-11-15 00:00:00 2024-06-27 02:40:23 Orders Only Marrufo, Palak Marrufo, Palak [facility] TALYA?[facility] MEDICAL OFFICE BUILDING 1.2.840.114 350.1.13.10 4.2.7.2.686 [id number] [facility] 2024-05-19 12:49:00 2024-05-19 16:37:00 Emergency X JOHN GONZALESANAMARIA LOZANO [facility] ERT [id number] [facility] 2024-05-19 12:49:00 2024-05-19 16:37:00 Emergency Anamaria Gonzales [facility] 1.2840.114 350.1.13.10 4.2.7.2.686 [id number] [facility] 2024-04-19 07:55:00 2024-04-19 09:58:00 Emergency X ROSENDO LEVY BRENT [facility] ERT [id number] [facility] 2024-04-19 07:55:00 2024-04-19 09:58:00 Emergency Rosendo Levy [facility] 1.2840.114 350.1.13.10 4.2.7.2.686 [id number] [facility] 2024-03-18 00:00:00 2024-04-18 18:19:35 Patient Secure Msg Doctor Unassigned, [place] Doctor Unassigned, [place] [facility] 1.2840.114 350.1.13.10 4.2.7.2.686 [id number] [facility] 2024-04-12 11:54:00 2024-04-12 14:39:00 Emergency T ARAM PARADA [facility] STR [id number] [facility] 2024-04-12 11:54:00 2024-04-12 14:39:00 Emergency Aram Paraad [facility] ([place] 1.20.114 350.1.13.10 4.2.7.2.686 [id number] [facility] 2024-04-12 09:23:00 2024-04-12 10:42:00 Emergency X MAGGIE HAMILTON, MAGGIE [facility] ERT [id number] [facility] 2024-04-12 09:23:00 2024-04-12 10:42:00 Emergency Onesimo, Olamide Maggie Wise [facility] 1.840.114 350.1.13.10 4.2.7.2.686 [id number] [facility] 2024-03-10 09:43:00 2024-03-13 10:40:00 Inpatient X BALDEV, TAJ OZUNA [facility] [id number] [facility] 2024-03-10 09:43:00 2024-03-13 10:40:00 Hospital Encounter Fidel, Alfredo Manuel, Jose Mao, Taj Milner [facility] 1.84.114 350.1.13.10 4.2.7.2.686 [id number] [facility] 2024-03-06 00:00:00 2024-03-06 08:40:48 Transition of Care Marlys Odell, Marlys MELO 1.840.114 350.1.13.10 4.2.7.2.686 [id number] [facility] 2024-03-04 06:46:00 2024-03-05 16:30:00 Outpatient X JOSE MANDUJANO MYRNA [facility] [id number] [facility] 2024-03-04 06:46:00 2024-03-05 16:30:00 Emergency Jesus Muñoz Myrna [facility] ([place] 1.840.114 350.1.13.10 4.2.7.2.686 [id number] [facility] 2024-03-03 00:00:00 2024-03-04 15:45:46 Patient Secure Msg Saulo Buenrostrohif [facility] 1.2.840.114 350.1.13.10 4.2.7.2.686 [id number] [facility] 2024-03-03 00:00:00 2024-03-03 12:14:14 Telephone Giselle Vance [facility] ([place]) 1.2.840.114 350.1.13.10 4.2.7.2.686 [id number] [facility] 2024-02-28 00:00:00 2024-02-28 09:08:41 Transition of Care Tc Renteria Michele [address] [place] [address] 1.2.840.114 350.1.13.10 4.2.7.2.686 [id number] [facility] 2024-02-22 09:35:00 2024-02-27 16:59:00 Inpatient X HANY LEE [facility] NATTY [id number] [facility] 2024-02-22 09:35:00 2024-02-27 16:59:00 Hospital Encounter Stephanie Warren, Hany Quiroz [facility] ([place]) 1.2840.114 350.1.13.10 4.2.7.2.686 [id number] [facility] 2024-02-27 09:40:00 2024-02-27 10:51:00 Surgery Jas Buenrostro [facility] 1.2840.114 350.1.13.10 4.2.7.2.686 [id number] [facility] 2024-02-27 09:22:00 2024-02-27 10:26:00 Anesthesia Event Peter Reece [facility] 1.2840.114 350.1.13.10 4.2.7.2.686 [id number] [facility] 2024-02-24 00:00:00 2024-02-24 09:18:09 Telephone Naty Buenrostro [facility] 1.2.840.114 350.1.13.10 4.2.7.2.686 [id number] [facility] 2023-12-23 15:39:53 2023-12-23 15:39:53 Outpatient [facility] [id number] Willis Rivera Jeffery 2023-12-08 14:51:46 2023-12-08 14:51:46 Outpatient [facility] [id number] Willis Rivera Jeffery 2023-09-12 00:00:00 2023-09-12 00:00:00 Outpatient R ROLDAN WALKER [facility] [facility] [id number] [facility] 2023-08-26 00:00:00 2023-08-26 00:00:00 Transition of Care OdellMarlys WAIApril OMER MELO 1.2.840.114 350.1.13.10 4.2.7.2.686 [id number] [facility] 2023-08-23 08:31:00 2023-08-24 13:25:00 Outpatient X ROLDAN WALKER [facility] [place] [id number] [facility] 2023-08-04 14:56:23 2023-08-04 14:56:23 Outpatient [facility] [id number] Willis Gil 2023-06-27 14:47:45 2023-06-27 14:47:45 Outpatient [facility] [id number] Willis Rivera Jeffery 2023-05-19 09:04:00 2023-05-19 12:20:00 Emergency X TOD AGUILAR [facility] E[facility] [id number] [facility] 2023-05-19 09:04:00 2023-05-19 12:20:00 Emergency Tod Aguilar [facility] 1.2.840.114 350.1.13.10 4.2.7.2.686 [id number] [id number] [facility] 2023-04-05 00:00:00 2023-04-05 00:00:00 Patient Secure Prasanna Kang [facility]ESSIO [facility] 1.2840.114 350.1.13.10 4.2.7.2.686 [id number] [facility] 2023-02-14 12:59:23 2023-02-14 12:59:23 Outpatient [facility] [id number] Williszaira Gil 2023-02-06 18:19:02 2023-02-06 18:19:02 Outpatient [facility] [id number] Willis Gil 2023-01-16 00:00:00 2023-01-16 00:00:00 Transition of Care Marlys Odell 1.2840.114 350.1.13.10 4.2.7.2.686 [id number] [facility] 2023-01-11 21:06:00 2023-01-15 16:00:00 Inpatient X REINALDO STEELESHUA [facility] DAVID [id number] [facility] 2023-01-11 21:06:00 2023-01-15 16:00:00 Hospital Encounter Miguel Ángel Siddiqui, Mirella Steele, Kun [facility] 1.2840.114 350.1.13.10 4.2.7.2.686 [id number] [facility] 2023-01-12 00:00:00 2023-01-12 00:00:00 Travel 1.2.840.1 18502.1.1 3.104.2.7 .3.883544 .8 1.2.840.114 350.1.13.10 4.2.7.3.698 084.8 [id number] [facility] 2023-01-11 00:00:00 2023-01-11 00:00:00 Travel 1.2.840.1 36029.1.1 3.104.2.7 .3.938080 .8 1.2.840.114 350.1.13.10 4.2.7.3.698 084.8 [id number] [facility] 2022-12-14 18:37:13 2022-12-14 18:37:13 Outpatient [facility] [id number] Willis Gil 2022-12-12 09:30:00 2022-12-12 09:30:00 Outpatient PRASANNA LOOMIS [facility] [id number] [facility] 2022-11-21 13:08:00 2022-11-21 16:45:00 Emergency MANJU BARRAGAN [facility] ERT [id number] [facility] 2022-11-21 13:08:00 2022-11-21 16:45:00 Emergency Oc Bridges Christopher 1.2.840.1 62616.1.1 3.104.2.7 .3.465491 .8 [id number] [facility] 2022-11-21 00:00:00 2022-11-21 00:00:00 Travel 1.2.840.1 15160.1.1 3.104.2.7 .3.784570 .8 1.2.840.114 350.1.13.10 4.2.7.3.698 084.8 [id number] [facility] 2022-11-18 10:08:00 2022-11-18 10:08:00 Outpatient [facility] [id number] Willis Gil 2022-11-15 09:40:00 2022-11-15 09:40:00 Outpatient JEREMY LABOY CHRISTINE [facility] [id number] [facility] 2022-11-09 15:26:18 2022-11-09 15:26:18 Outpatient [facility] [id number] Willis Gil 2022-11-06 13:00:00 2022-11-06 13:00:00 Outpatient R CA MARTINEZ [facility] [id number] [facility] 2022-10-29 00:00:00 2022-10-29 00:00:00 Patient Secure Msg Jeremy Greene 1.2.840.1 67709.1.1 3.104.2.7 .3.591874 .8 [id number] [facility] 2022-10-29 00:00:00 2022-10-29 00:00:00 Patient Secure Msg Prasanna Vargas Jm 1.2.840.1 84590.1.1 3.104.2.7 .3.747429 .8 [id number] [facility] 2022-10-03 00:00:00 2022-10-03 00:00:00 Letter (Out) Roldan Walker [facility] 1.2.840.114 350.1.13.10 4.2.7.2.686 [id number] [facility] 2022-10-02 10:00:00 2022-10-02 10:00:00 Outpatient DESIREE SALMON [facility] [id number] [facility] 2022-10-01 09:40:00 2022-10-01 09:40:00 Outpatient REJI COOPER [facility] [id number] [facility] 2022-09-25 00:00:00 2022-09-25 00:00:00 Telephone [facility] 1.2.840.114 350.1.13.10 4.2.7.2.686 [id number] [facility] 2022-09-21 09:30:00 2022-09-21 09:30:00 Outpatient KASSANDRA MCKINLEY [facility] [id number] [facility] 2022-09-21 00:00:00 2022-09-21 00:00:00 [facility] (Out[facility] 1.2.840.114 350.1.13.10 4.2.7.2.686 [id number] [facility] 2022-09-21 00:00:00 2022-09-21 00:00:00 [facility] 1.2.840.114 350.1.13.10 4.2.7.2.686 [id number] [facility] 2022-09-21 00:00:00 2022-09-21 00:00:00 [facility] 1.2.840.114 350.1.13.10 4.2.7.2.686 [id number] [id number] [facility] 2022-09-14 09:30:00 2022-09-14 09:30:00 Outpatient KASSANDRA MCKINLEY [facility] [id number] [facility] 2022-09-12 00:00:00 2022-09-12 00:00:00 Telephone Lexy [facility] TALYA?[facility]O [facility] MEDICAL OFFICE BUILDING 1.2.840.114 350.1.13.10 4.2.7.2.686 [id number] [facility] 2022-09-07 11:30:00 2022-09-07 11:30:00 Outpatient KASSANDRA MCKINLEY [facility] [id number] [facility] 2022-09-05 08:44:00 2022-09-05 13:15:00 Emergency X KENNEDY HUTCHINS [facility] ERT [id number] [facility] 2022-09-05 08:44:00 2022-09-05 13:15:00 Emergency Kennedy Hutchins [facility] 1.2840.114 350.1.13.10 4.2.7.2.686 [id number] [facility] 2022-09-04 00:00:00 2022-09-04 00:00:00 Telephone Kassandra Pugh [facility] 1.84.114 350.1.13.10 4.2.7.2.686 [id number] [facility] 2022-09-04 00:00:00 2022-09-04 00:00:00 Patient Secure Msg Rad Serra [facility] PROFESSIO [facility] BUILD[facility] 1.84.114 350.1.13.10 4.2.7.2.686 [id number] [facility] 2022-08-29 09:00:00 2022-08-29 09:00:00 Outpatient R DESIREE FINNEY [facility] [id number] [facility] 2022-08-14 00:00:00 2022-08-14 00:00:00 Patient Secure Msg Doctor Unassigned, [place] [facility] 1.840.114 350.1.13.10 4.2.7.2.686 [id number] [facility] 2022-07-31 17:56:00 2022-07-31 20:30:00 Emergency X BLANE, MANJU [facility] E[facility] [id number] [facility] 2022-07-31 17:56:00 2022-07-31 20:30:00 Emergency Cascade, Leightoner [facility] 1.84.114 350.1.13.10 4.2.7.2.686 [id number] [id number] [facility] 2022-07-15 09:46:45 2022-07-15 23:59:00 Outpatient R BEBA KAUR [facility] [id number] [facility] 2022-07-15 09:46:45 2022-07-15 23:59:00 Hospital Encounter Beba Kaur [facility] TALYA?[facility] 1.840.114 350.1.13.10 4.2.7.2.686 [id number] [facility] 2022-07-15 09:46:45 2022-07-15 23:59:00 Hospital Encounter Beba Kaur [facility] TALYA?LINO [facility] MEDICAL OFFICE BUILDING 1.840.114 350.1.13.10 4.2.7.2.686 [id number] [facility] 2022-07-15 09:20:00 2022-07-15 10:29:17 Urgent Care Beba Kaur Unknown, Attending [facility] MED[facility] OFF[facility] BUILD[facility] 1.840.114 350.1.13.10 4.2.7.2.686 [id number] [facility] 2022-07-15 00:00:00 2022-07-15 00:00:00 Orders Only Doctor Unassigned, [place] [facility] 1.84114 350.1.13.10 4.2.7.2.686 [id number] [facility] 2022-06-23 09:20:00 2022-06-23 10:27:39 Outpatient R PAUL SAMAYOA [facility] [id number] [facility] 2022-06-23 09:20:00 2022-06-23 10:27:39 Urgent Care Paul Samayoa Unknown, Attending [facility] MED[facility] OFFICE BUILDING 1.840.114 350.1.13.10 4.2.7.2.686 [id number] [facility] 2022-06-23 00:00:00 2022-06-23 00:00:00 Orders Only Doctor Unassigned, [place] [facility] 1..840.114 350.1.13.10 4.2.7.2.686 [id number] [facility] 2022-06-15 09:40:00 2022-06-15 09:40:00 Outpatient JEREMY LABOY [facility] [id number] [facility] 2022-05-29 08:00:00 2022-05-29 08:00:00 Outpatient KASSANDRA MCKINLEY [facility] [id number] [facility] 2022-05-15 09:20:00 2022-05-15 09:20:00 Outpatient BENNETT MOORE [facility] [id number] [facility] 2022-05-11 09:30:00 2022-05-11 09:30:00 Outpatient KASSANDRA MCKINLEY [facility] [id number] [facility] 2022-05-05 12:26:00 2022-05-05 16:11:00 Emergency X KARON NORTON [facility] E[facility] [id number] [facility] 2022-05-05 12:26:00 2022-05-05 16:11:00 Emergency Karon Norton [facility] 1.840.114 350.1.13.10 4.2.7.2.686 [id number] [facility] 2022-05-01 00:00:00 2022-05-01 00:00:00 Outpatient PRASANNA LOOMIS VIEN [facility] [id number] [facility] 2022-04-26 08:30:00 2022-04-26 09:59:00 Emergency X OC BRIDGES [facility] E[facility] [id number] [facility] 2022-04-26 08:30:00 2022-04-26 09:59:00 Emergency Oc Bridges [facility] 1.2840.114 350.1.13.10 4.2.7.2.686 [id number] [facility] 2022-04-25 18:23:00 2022-04-25 21:55:00 Emergency X KENNEDY HUTCHINS [facility] E[facility] [id number] [facility] 2022-04-25 18:23:00 2022-04-25 21:55:00 Emergency Kennedy Hutchins [facility] 1.2840.114 350.1.13.10 4.2.7.2.686 [id number] [facility] 2022-04-19 10:00:00 2022-04-19 10:00:00 Outpatient JEREMY LABOY [facility] [id number] [facility] 2022-04-12 00:00:00 2022-04-12 00:00:00 [facility] BUILD[facility] 1.284.114 350.1.13.10 4.2.7.2.686 [id number] [facility] 2022-04-11 00:00:00 2022-04-11 00:00:00 Telephone [facility]ion [facility] MED[facility] OFF[facility] BUILD[facility] 1.2.84.114 350.1.13.10 4.2.7.2.686 [id number] [facility] 2022-04-10 00:00:00 2022-04-10 00:00:00 Telephone Lexy Kassandra [facility] TALYA?[facility] MED[facility] OFFICE BUILDING 1.2840.114 350.1.13.10 4.2.7.2.686 [id number] [facility] 2022-04-09 09:30:00 2022-04-09 09:30:00 Office Visit Kassandra Pugh [facility] 1.2.840.114 350.1.13.10 4.2.7.2.686 [id number] [facility] 2022-04-09 09:30:00 2022-04-09 09:21:44 Outpatient R LEXY KASSANDRA [facility] [id number] [facility] 2022-04-07 13:41:00 2022-04-07 17:49:00 Emergency X ALEXISJADENOLAMIDE [facility] ERT [id number] [facility] 2022-04-07 13:41:00 2022-04-07 17:49:[address] [facility] 1..840.114 350.1.13.10 4.2.7.2.686 [id number] [id number] [facility] 2022-04-07 00:00:00 2022-04-07 00:00:00 Patient Secure Msg Doctor Unassigned, [place] [facility] 1.2.840.114 350.1.13.10 4.2.7.2.686 [id number] [facility] 2022-04-04 00:00:00 2022-04-04 00:00:00 Telephone [facility] 1.2.840.114 350.1.13.10 4.2.7.2.686 [id number] [id number] [facility] 2022-04-02 10:30:00 2022-04-02 10:30:00 Outpatient R LONNY PUGHSSICA [facility] [id number] [facility] 2022-03-28 00:00:00 2022-03-28 00:00:00 Patient Secure Msg Doctor Unassigned, [place] [facility] 1.2.840.114 350.1.13.10 4.2.7.2.686 [id number] [facility] 2022-03-24 07:35:00 2022-03-24 13:11:00 Emergency X KELLIE PIPER [facility] E[facility] [id number] [facility] 2022-03-24 07:35:00 2022-03-24 13:11:00 Emergency Perla, Kellie E [facility] 1..840.114 350.1.13.10 4.2.7.2.686 [id number] [facility] 2022-03-23 10:30:00 2022-03-23 10:30:00 Outpatient KASSANDRA MCKINLEY [facility] [id number] [facility] 2022-03-23 00:00:00 2022-03-23 00:00:[address] 1..840.114 350.1.13.10 4.2.7.2.686 [id number] [id number] [facility] 2022-03-22 00:00:00 2022-03-22 00:00:00 Telephone Darrion Armstrong [facility] MEDICAL OFFICE BUILDING 1..840.114 350.1.13.10 4.2.7.2.686 [id number] [facility] 2022-03-22 00:00:00 2022-03-22 00:00:00 Refill Darrion Armstrong [facility] TALYA?[facility] MED[facility] OFFICE BUILDING 1.2.840.114 350.1.13.10 4.2.7.2.686 [id number] [facility] 2022-03-21 00:00:00 2022-03-21 00:00:00 Telephone Darrion Armstrong [facility] 1..840.114 350.1.13.10 4.2.7.2.686 [id number] [facility] 2022-03-15 14:00:00 2022-03-15 14:36:19 Outpatient R RADHA [facility] [id number] [facility] 2022-03-15 14:00:00 2022-03-15 14:36:19 Office Visit Radha [facility] PROFESSIO NAL BUILDING 1..840.114 350.1.13.10 4.2.7.2.686 [id number] [facility] 2022-03-15 08:40:00 2022-03-15 10:47:00 Emergency X LYDIA COLMENARES [facility] ERT [id number] [facility] 2022-03-15 08:40:00 2022-03-15 10:47:00 Emergency Bryanna [facility] 1..840.114 350.1.13.10 4.2.7.2.686 [id number] [id number] [facility] 2022-03-14 10:30:00 2022-03-14 10:30:00 Outpatient PRASANNA LOOMIS [facility] [id number] [facility] 2022-03-11 09:22:00 2022-03-11 12:15:00 Emergency X ANGELICA VIVEROS [facility] ERT [id number] [facility] 2022-03-11 09:22:00 2022-03-11 12:15:00 Emergency Angelica Viveros [facility] 1.2.840.114 350.1.13.10 4.2.7.2.686 [id number] [facility] 2022-03-06 08:30:00 2022-03-06 08:30:00 Outpatient R PUGHKASSANDRA [facility] [id number] [facility] 2022-03-02 00:00:00 2022-03-02 00:00:00 Telephone Darrion Armstrong [facility] TALYA[facility] 1.2.840.114 350.1.13.10 4.2.7.2.686 [id number] [id number] [facility] 2022-02-28 00:00:00 2022-02-28 00:00:00 Patient Secure Msg Doctor Unassigned, [place] [facility] 1.2.840.114 350.1.13.10 4.2.7.2.686 [id number] [facility] 2022-02-27 09:30:00 2022-02-27 09:49:42 Outpatient Farzana PUGHKASSANDRA [facility] [id number] [facility] 2022-02-27 09:30:00 2022-02-27 09:49:42 [facility] MEDICAL OFFICE BUILDING 1.2.840.114 350.1.13.10 4.2.7.2.686 [id number] [facility] 2022-02-27 08:00:00 2022-02-27 09:12:17 Office Visit Ca Martinez [facility] TALYA?[facility] MEDICAL OFFICE BUILDING 1.2.840.114 350.1.13.10 4.2.7.2.686 [id number] [facility] 2022-02-26 11:30:00 2022-02-26 11:30:00 Outpatient Farzana PUGHKASSANDRA [facility] [id number] [facility] 2022-02-21 01:20:00 2022-02-21 03:44:00 Emergency X MAGGIE HAMILTON [facility] ERT [id number] [facility] 2022-02-21 01:20:00 2022-02-21 03:44:00 Emergency Maggie Hamilton [facility] 1.2.840.114 350.1.13.10 4.2.7.2.686 [id number] [id number] [facility] 2022-02-19 00:00:00 2022-02-19 00:00:00 Patient Secure Msg Kendal Zamudio [facility] MEDICAL OFFICE BUILDING 1.2.840.114 350.1.13.10 4.2.7.2.686 [id number] [facility] 2022-02-19 00:00:00 2022-02-19 00:00:00 Patient Secure Msg Kendal Zamudio [facility] MEDICAL OFFICE BUILDING 1.2.840.114 350.1.13.10 4.2.7.2.686 [id number] [id number] [facility] 2022-02-19 00:00:00 2022-02-19 00:00:00 Patient Secure Msg Santiago Valencia [facility] 1.2.840.114 350.1.13.10 4.2.7.2.686 [id number] [facility] 2022-02-19 00:00:00 2022-02-19 00:00:00 Patient Secure Msg Ross Salazar [facility] PSYCHOLOGIST [facility] 1.2.840.114 350.1.13.10 4.2.7.2.686 [id number] [facility] 2022 11:58:00 2022 15:13:00 Emergency MAGGIE MONTANEZ [facility] ERT [id number] [facility] 2022 11:58:00 2022 15:13:00 Emergency Maggie Hamilton [facility] 1..840.114 350.1.13.10 4.2.7.2.686 [id number] [facility] 2022-02-09 09:00:00 2022-02-09 09:00:00 Outpatient R CRICKET TAYLOR [facility] [id number] [facility] 2022-02-06 10:00:00 2022-02-06 10:00:00 Outpatient CA ARAUZ [facility] [id number] [facility] 2022-02-05 09:45:00 2022-02-05 10:05:00 Nurse Visit Nurse, Filippo [facility] Willie Medrano [facility] 1..840.114 350.1.13.10 4.2.7.2.686 [id number] [facility] 2022-02-05 09:20:00 2022-02-05 09:20:00 Outpatient R OLIVER FLACO [facility] [id number] [facility] 2022-01-26 00:00:00 2022-01-26 00:00:00 Case Management Prasanna Vargas [facility] PROFESSIO NAL BUILDING 1..840.114 350.1.13.10 4.2.7.2.686 [id number] [facility] 2022-01-22 11:00:00 2022-01-22 11:00:00 Outpatient CA ARAUZ [facility] [id number] [facility] 2022-01-19 00:00:00 2022-01-19 00:00:00 Patient Secure Msg Doctor Unassigned, [place] [facility] 1.840.114 350.1.13.10 4.2.7.2.686 [id number] [facility] 2022-01-18 05:17:00 2022-01-18 10:25:00 Emergency X VASUT, ROSENDO [facility] ERT [id number] [facility] 2022-01-18 05:17:00 2022-01-18 10:25:00 Emergency Juan Kennedy [facility] 1.840.114 350.1.13.10 4.2.7.2.686 [id number] [facility] 2022-01-15 08:34:00 2022-01-15 10:49:00 Emergency Aj COXMAURA [facility] ERT [id number] [facility] 2022-01-15 08:34:00 2022-01-15 10:49:00 Emergency Larry Perez Robert Lee [facility] 1.840.114 350.1.13.10 4.2.7.2.686 [id number] [facility] 2022-01-08 18:04:00 2022-01-08 20:09:00 Emergency X HUMBERTO OCHOA [facility] ERT [id number] [facility] 2022-01-08 18:04:00 2022-01-08 20:09:00 Emergency Humberto Ochoa [facility] 1..840.114 350.1.13.10 4.2.7.2.686 [id number] [facility] 2021-12-12 13:30:00 2021-12-12 13:40:21 Outpatient Farzana CARNES TETO [facility] [id number] [facility] 2021-12-12 13:30:00 2021-12-12 13:40:21 Office Visit Prasanna Vargas [facility] 1.840.114 350.1.13.10 4.2.7.2.686 [id number] [facility] 2021-12-12 13:30:00 2021-12-12 13:40:21 Outpatient R TETO CARNES [facility] [id number] [facility] 2021-12-12 13:30:00 2021-12-12 13:40:21 Outpatient R TETO CARNES [facility] [id number] [facility] 2021-12-11 16:15:00 2021-12-11 16:15:00 Outpatient R SUZETTESANTIAGO [facility] [id number] [facility] 2021-12-05 14:15:00 2021-12-05 14:15:00 Outpatient R ROMULO OAMLLEY [facility] [id number] [facility] 2021-11-28 08:49:00 2021-11-28 11:02:00 Emergency X KARON NORTON [facility] ERT [id number] [facility] 2021-11-28 08:49:00 2021-11-28 11:02:00 Emergency Karon Norton [facility] 1.840.114 350.1.13.10 4.2.7.2.686 [id number] [facility] 2021-11-28 00:00:00 2021-11-28 00:00:00 Patient Secure Msg Cricket Taylor [facility] PSYCHOLOGIST SOCIAL [facility] 1.2.840.114 350.1.13.10 4.2.7.2.686 [id number] [facility] 2021-11-24 18:14:00 2021-11-24 21:04:00 Emergency X Kaycee MÉNDEZ [facility] ERT [id number] [facility] 2021-11-24 18:14:00 2021-11-24 21:04:00 Emergency Kaycee Méndez [facility] 1..840.114 350.1.13.10 4.2.7.2.686 [id number] [facility] 2021-11-24 00:00:00 2021-11-24 00:00:00 Telephone Cricket Taylor [facility] PSYCHOLOGIST SOCIAL [facility] 1.2114 350.1.13.10 4.2.7.2.686 [id number] [facility] 2021-11-20 00:00:00 2021-11-20 00:00:00 Patient Secure Kendal Medrano [facility] 1.84.114 350.1.13.10 4.2.7.2.686 [id number] [facility] 2021-11-19 00:00:00 2021-11-19 00:00:00 Letter (Out) Leslie Santacruz [facility] 1..114 350.1.13.10 4.2.7.2.686 [id number] [facility] 2021-11-18 10:41:40 2021-11-18 23:59:00 Outpatient R OLIVERJAMESFLACO [facility] [id number] [facility] 2021-11-18 10:41:40 2021-11-18 23:59:00 Hospital Encounter Oliver, [facility] 1.84.114 350.1.13.10 4.2.7.2.686 [id number] [facility] 2021-11-18 10:20:00 2021-11-18 10:53:20 Urgent Care Oliver, [facility] 1.284114 350.1.13.10 4.2.7.2.686 [id number] [facility] 2021-11-09 10:30:00 2021-11-09 10:30:00 Outpatient R DESIREE MOHR [facility] [id number] [facility] 2021-10-25 13:20:00 2021-10-25 13:20:00 Urgent Care Willie Medrano [facility] 1.2.840.114 350.1.13.10 4.2.7.2.686 [id number] [facility] 2021-10-25 13:20:00 2021-10-25 12:47:59 Outpatient R WILLIE MEDRANO [facility] [id number] [facility] 2021-10-25 00:00:00 2021-10-25 00:00:00 Patient Secure [place] [facility] 1.2840.114 350.1.13.10 4.2.7.2.686 [id number] [facility] 2021-10-25 00:00:00 2021-10-25 00:00:00 Telephone Ca Martinez [facility] MEDICAL OFFICE BUILDING 1.2840.114 350.1.13.10 4.2.7.2.686 [id number] [facility] 2021-10-25 00:00:00 2021-10-25 00:00:00 Telephone Provider, Filippo Shirley [facility] MEDICAL OFFICE BUILDING 1.2840.114 350.1.13.10 4.2.7.2.686 [id number] [facility] 2021-10-25 00:00:00 2021-10-25 00:00:00 Telephone Nurse, Filippo Shirley [facility] MEDICAL OFFICE BUILDING 1.2.840.114 350.1.13.10 4.2.7.2.686 [id number] [facility] 2021-10-24 10:15:00 2021-10-24 10:15:00 Outpatient ROMULO BROWNING [facility] [id number] [facility] 2021-10-24 10:15:00 2021-10-24 10:15:00 Outpatient ROMULO BROWNING [facility] [id number] [facility] 2021-10-11 09:30:00 2021-10-11 09:30:00 Outpatient ROMULO BROWNING [facility] [id number] [facility] 2021-10-10 13:30:00 2021-10-10 13:30:00 Outpatient PRASANNA LOOMIS [facility] [id number] [facility] 2021-10-10 13:30:00 2021-10-10 13:30:00 Outpatient PRASANNA LOOMIS [facility] [id number] [facility] 2021-10-10 13:30:00 2021-10-10 13:30:00 Outpatient PRASANNA LOOMIS [facility] [id number] [facility] 2021-10-10 13:30:00 2021-10-10 13:30:00 Outpatient PRASANNA LOOMIS [facility] [id number] [facility] 2021-10-10 13:30:00 2021-10-10 13:30:00 Outpatient PRASANNA LOOMIS [facility] [id number] [facility] 2021-10-10 13:30:00 2021-10-10 13:30:00 Outpatient R PRASANNA VARGAS [facility] [id number] [facility] 2021-10-10 13:30:00 2021-10-10 13:30:00 Outpatient PRASANNA LOOMIS [facility] [id number] [facility] 2021-10-05 00:00:00 2021-10-05 00:00:00 Patient Secure Kendal Medrano [facility] MEDICAL OFFICE BUILDING 1.2.840.114 350.1.13.10 4.2.7.2.686 [id number] [facility] 2021-10-05 00:00:00 2021-10-05 00:00:00 Patient Secure Msg Kendal Zamudio [facility] MEDICAL OFFICE BUILDING 1.2840.114 350.1.13.10 4.2.7.2.686 [id number] [facility] 2021-10-04 00:00:00 2021-10-04 00:00:00 Pre Visit Outreach Michael Melia HILARIO OMER MELO 1.2840.114 350.1.13.10 4.2.7.2.686 [id number] [facility] 2021-09-28 13:30:00 2021-09-28 13:45:00 Office Visit Desiree Mohr [facility] 1.20.114 350.1.13.10 4.2.7.2.686 [id number] [facility] 2021-09-28 13:30:00 2021-09-28 13:30:00 Outpatient DESIREE STONE [facility] [id number] [facility] 2021-09-28 13:30:00 2021-09-28 13:30:00 Outpatient DESIREE STONE [facility] [id number] [facility] 2021-09-28 00:00:00 2021-09-28 00:00:00 Patient Secure g Onur Desiree Kassandra [facility] [place] 1.2840.114 350.1.13.10 4.2.7.2.686 [id number] [facility] 2021-09-27 14:00:00 2021-09-27 14:00:00 Outpatient TETO BRANTLEY [facility] [id number] [facility] 2021-09-27 09:30:00 2021-09-27 09:30:00 Outpatient R DANIA PENNINGTON [facility] [id number] [facility] 2021-09-27 09:30:00 2021-09-27 09:30:00 Outpatient R DANIA PENNINGTON [facility] [id number] [facility] 2021-09-27 09:30:00 2021-09-27 09:30:00 Outpatient R DANIA PENNINGTON [facility] [id number] [facility] 2021-09-26 10:45:00 2021-09-26 10:45:00 Outpatient R CRICKET TAYLOR [facility] [id number] [facility] 2021-09-26 10:45:00 2021-09-26 10:45:00 Outpatient R CRICKET TAYLOR [facility] [id number] [facility] 2021-09-26 00:00:00 2021-09-26 00:00:00 Patient Secure g Ca [facility] MEDICAL OFFICE BUILDING 1.2.840.114 350.1.13.10 4.2.7.2.686 [id number] [facility] 2021-09-26 00:00:00 2021-09-26 00:00:00 Patient Secure g Ca Martinez [facility] MEDICAL OFFICE BUILDING 1.2.840.114 350.1.13.10 4.2.7.2.686 [id number] [facility] 2021-09-25 10:20:00 2021-09-25 11:10:42 Urgent Care Flaco Boyd Amanda [facility] MEDICAL OFFICE BUILDING 1.2.840.114 350.1.13.10 4.2.7.2.686 [id number] [facility] 2021-09-25 10:20:00 2021-09-25 11:10:42 Outpatient R JAMES BOYDTANY [facility] [id number] [facility] 2021-09-25 10:20:00 2021-09-25 10:20:00 Outpatient R JAMES BOYDTANY [facility] [id number] [facility] 2021-09-25 10:00:00 2021-09-25 10:00:00 Outpatient R PRASANNA VARGAS [facility] [id number] [facility] 2021-09-25 00:00:00 2021-09-25 00:00:00 Telephone Oliver [facility] 1.840.114 350.1.13.10 4.2.7.2.686 [id number] [facility] 2021-09-25 00:00:00 2021-09-25 00:00:00 Patient Secure Msg [facility] 1.84.114 350.1.13.10 4.2.7.2.686 [id number] [facility] 2021-09-25 00:00:00 2021-09-25 00:00:00 Telephone Cricket Taylor [facility] PSYCHOLOGIST SOCIAL [facility] 1..114 350.1.13.10 4.2.7.2.686 [id number] [facility] 2021-09-25 00:00:00 2021-09-25 00:00:00 Telephone Desiree Mohr [facility] 1.84.114 350.1.13.10 4.2.7.2.686 [id number] [facility] 2021-09-15 00:00:00 2021-09-15 00:00:00 Patient Secure Msg Kendal Zamudio [facility] 1.840.114 350.1.13.10 4.2.7.2.686 [id number] [facility] 2021-09-15 00:00:00 2021-09-15 00:00:00 Patient Secure Msg Kendal Zamudio [facility] BUILDING 1.2.840.114 350.1.13.10 4.2.7.2.686 [id number] [facility] 2021-09-15 00:00:00 2021-09-15 00:00:00 Patient Secure Msg Kendal Zamudio [facility] OFF[facility] BUILDING 1.2.840.114 350.1.13.10 4.2.7.2.686 [id number] [facility] 2021-09-14 00:00:00 2021-09-14 00:00:00 Patient Secure Msg VíctorCa cannon [facility] BUILDING 1.2.840.114 350.1.13.10 4.2.7.2.686 [id number] [facility] 2021-09-14 00:00:00 2021-09-14 00:00:00 Patient Secure Msg Doctor Unassigned, [place] [facility] MEDICAL OFFICE BUILDING 1.2.840.114 350.1.13.10 4.2.7.2.686 [id number] [facility] 2021-09-12 10:30:00 2021-09-12 10:30:00 Outpatient DESIREE STONE [facility] [id number] [facility] 2021-09-12 10:30:00 2021-09-12 10:30:00 Outpatient DESIREE STONE [facility] [id number] [facility] 2021-09-12 00:00:00 2021-09-12 00:00:00 Patient Secure Msg Meet Taj Buddy [facility] 1.2840.114 350.1.13.10 4.2.7.2.686 [id number] [facility] 2021-09-12 00:00:00 2021-09-12 00:00:00 Orders Only Doctor Unassigned, [place] [facility] 1.2.840.114 350.1.13.10 4.2.7.2.686 [id number] [facility] 2021-09-12 00:00:00 2021-09-12 00:00:00 Patient Secure Msg Juan [facility] MED[facility] OFF[facility] BUILD[facility] 1.2840.114 350.1.13.10 4.2.7.2.686 [id number] [facility] 2021-09-05 00:00:00 2021-09-05 00:00:00 Patient Secure Msg Juan [facility] MEDICAL OFFICE BUILDING 1.2840.114 350.1.13.10 4.2.7.2.686 [id number] [facility] 2021-09-05 00:00:00 2021-09-05 00:00:00 Patient Secure Msg Doctor Unassigned, [place] [facility] 1.2840.114 350.1.13.10 4.2.7.2.686 [id number] [facility] 2021-09-05 00:00:00 2021-09-05 00:00:00 Patient Secure Msg Doctor Unassigned, [place] [facility] 1.2840.114 350.1.13.10 4.2.7.2.686 [id number] [facility] 2021-09-04 00:00:00 2021-09-04 00:00:00 Patient Secure Msg Ca Martinez [facility] MEDICAL OFFICE BUILDING 1.2840.114 350.1.13.10 4.2.7.2.686 [id number] [facility] 2021-08-28 00:00:00 2021-08-28 00:00:00 Patient Secure Msg Harsh Charles [facility] 1.2840.114 350.1.13.10 4.2.7.2.686 [id number] [facility] 2021-08-25 00:00:00 2021-08-25 00:00:00 Telephone Dania Pennington [facility] MEDICAL OFFICE BUILDING 1.2840.114 350.1.13.10 4.2.7.2.686 [id number] [facility] 2021-08-25 00:00:00 2021-08-25 00:00:00 Patient Secure Msg Ca Martinez [facility] MEDICAL OFFICE BUILDING 1.2840.114 350.1.13.10 4.2.7.2.686 [id number] [facility] 2021-08-24 00:00:00 2021-08-24 00:00:00 Telephone Ca Martinez [facility] MEDICAL OFFICE BUILDING 1.2840.114 350.1.13.10 4.2.7.2.686 [id number] [facility] 2021-08-24 00:00:00 2021-08-24 00:00:00 Patient Secure Msg Ca Martinez [facility] MEDICAL OFFICE BUILDING 1.2840.114 350.1.13.10 4.2.7.2.686 [id number] [id number] [facility] 2021-08-23 00:00:00 2021-08-23 00:00:00 Patient Secure Msg Ca Martinez [facility] BUILD[facility] 1.2.840.114 350.1.13.10 4.2.7.2.686 [id number] 044 [id number] [facility] 2021-08-23 00:00:00 2021-08-23 00:00:00 Telephone Ca Martinez [facility] 1.2.840.114 350.1.13.10 4.2.7.2.686 [id number] 044 [id number] [facility] 2021-08-22 00:00:00 2021-08-22 00:00:00 Telephone Ca Martinez [facility] MEDICAL OFFICE BUILDING 1.2.840.114 350.1.13.10 4.2.7.2.686 [id number] [id number] [facility] 2021-08-22 00:00:00 2021-08-22 00:00:00 Patient Secure Msg Hallie Wilkinson [facility] 1.2.840.114 350.1.13.10 4.2.7.2.686 [id number] [id number] [facility] 2021-08-18 00:00:00 2021-08-18 00:00:00 Telephone Ca Martinez [facility] MEDICAL OFFICE BUILDING 1.2.840.114 350.1.13.10 4.2.7.2.686 [id number] [facility] 2021-08-17 09:00:00 2021-08-17 09:00:00 Outpatient DESIREE STONE [facility] [id number] [facility] 2021-08-17 09:00:00 2021-08-17 09:00:00 Outpatient DESIREE STONE [facility] [id number] [facility] 2021-08-17 00:00:00 2021-08-17 00:00:00 Patient Secure Msg Prasanna [facility]arg[facility] 1.20.114 350.1.13.10 4.2.7.2.686 [id number] [facility] 2021-08-17 00:00:00 2021-08-17 00:00:00 Patient Secure Msg Ca Martinez [facility] MEDICAL OFFICE BUILDING 1.2.114 350.1.13.10 4.2.7.2.686 [id number] [facility] 2021-08-17 00:00:00 2021-08-17 00:00:00 Patient Secure Msg Ca Martinez [facility] MEDICAL OFFICE BUILDING 1..114 350.1.13.10 4.2.7.2.686 [id number] [facility] 2021-08-16 00:00:00 2021-08-16 00:00:00 Patient Secure Msg Ca Martinez [facility] MEDICAL OFFICE BUILDING 1.2114 350.1.13.10 4.2.7.2.686 [id number] [facility] 2021-08-16 00:00:00 2021-08-16 00:00:00 Patient Secure Msg Doctor Unassigned, [place] [facility] MEDICAL OFFICE BUILDING 1.2114 350.1.13.10 4.2.7.2.686 [id number] [facility] 2021-08-16 00:00:00 2021-08-16 00:00:00 Patient Secure Msg Ca Martinez [facility] MEDICAL OFFICE BUILDING 1.2114 350.1.13.10 4.2.7.2.686 [id number] [facility] 2021-08-16 00:00:00 2021-08-16 00:00:00 Patient Secure Ca Caraballo [facility] BUILD[facility] 1.2.840.114 350.1.13.10 4.2.7.2.686 [id number] [facility] 2021-08-15 15:30:00 2021-08-15 16:16:42 Office Visit Adán Kim Robert [facility] MEDICAL OFFICE BUILDING 1..840.114 350.1.13.10 4.2.7.2.686 [id number] [facility] 2021-08-15 15:30:00 2021-08-15 16:16:42 Outpatient Farzana KIM ADÁN [facility] [id number] [facility] 2021-08-15 15:30:00 2021-08-15 15:30:00 Outpatient Farzana KIM ADÁN [facility] [id number] [facility] 2021-08-15 15:30:00 2021-08-15 15:30:00 [facility] [id number] [facility] 2021-08-15 15:30:00 2021-08-15 15:30:00 Outpatient ADÁN DIEGO [facility] [id number] [facility] 2021-08-15 09:27:00 2021-08-15 12:26:00 Emergency X MUARA [facility] ERT [id number] [facility] 2021-08-15 09:27:00 2021-08-15 12:26:00 Emergency Maura Cox [facility] 1..840.114 350.1.13.10 4.2.7.2.686 [id number] [facility] 2021-08-15 09:27:00 2021-08-15 12:26:00 Emergency X MAURA [facility] ERT [id number] [facility] 2021-08-15 00:00:00 2021-08-15 00:00:00 Patient Secure Msg Doctor Unassigned, [place] [facility] 1.114 350.1.13.10 4.2.7.2.686 [id number] [facility] 2021-08-14 13:25:00 2021-08-14 23:59:00 Outpatient CA ARAUZ [facility] [id number] [facility] 2021-08-14 13:25:00 2021-08-14 23:59:00 Outpatient R CA MARTINEZ [facility] [id number] [facility] 2021-08-14 13:25:00 2021-08-14 13:25:00 Outpatient R CA MARTINEZ [facility] [id number] [facility] 2021-08-14 12:19:07 2021-08-14 13:24:00 Outpatient R CA MARTINEZ [facility] [id number] [facility] 2021-08-14 12:19:07 2021-08-14 13:24:00 Outpatient CA ARAUZ [facility] [id number] [facility] 2021-08-14 12:30:00 2021-08-14 13:01:24 Climate Change Risk Assessor Visit Lab, Filippo Martinez [facility] MEDICAL OFFICE BUILDING 1..114 350.1.13.10 4.2.7.2.686 [id number] [facility] 2021-08-14 12:30:00 2021-08-14 12:45:00 Climate Change Risk Assessor Visit Lab, Filippo Martinez [facility] MEDICAL OFFICE BUILDING 1.114 350.1.13.10 4.2.7.2.686 [id number] [facility] 2021-08-14 11:30:00 2021-08-14 12:31:12 Office Visit Ca Martinez [facility] BUILDING 1.2.840.114 350.1.13.10 4.2.7.2.686 [id number] [facility] 2021-08-14 11:30:00 2021-08-14 12:31:12 Outpatient R JUAN CA [facility] [id number] [facility] 2021-08-14 00:00:00 2021-08-14 00:00:00 Patient Secure Msg Ca Martinez [facility] MEDICAL OFFICE BUILDING 1.2.840.114 350.1.13.10 4.2.7.2.686 [id number] [facility] 2021-08-14 00:00:00 2021-08-14 00:00:00 Patient Secure Msg Juan Ca [facility] MEDICAL OFFICE BUILDING 1.2.840.114 350.1.13.10 4.2.7.2.686 [id number] [facility] 2021-08-09 14:45:00 2021-08-09 14:45:00 Outpatient R ADÁN KIM [facility] [id number] [facility] 2021-08-09 00:00:00 2021-08-09 00:00:00 Telephone Ca Martinez [facility] MEDICAL OFFICE BUILDING 1..840.114 350.1.13.10 4.2.7.2.686 [id number] [facility] 2021-08-08 11:30:00 2021-08-08 23:59:00 Outpatient R JUAN CA [facility] [id number] [facility] 2021-08-08 11:30:00 2021-08-08 23:59:00 Hospital Encounter Ca Martinez [facility] BABIN?LINO [facility] MEDICAL OFFICE BUILDING 1.840.114 350.1.13.10 4.2.7.2.686 [id number] [facility] 2021-08-08 11:15:00 2021-08-08 11:15:00 Outpatient R CA MARTINEZ [facility] [id number] [facility] 2021-08-08 11:00:00 2021-08-08 11:00:00 Outpatient R CA MARTINEZ [facility] [id number] [facility] 2021-08-08 00:00:00 2021-08-08 00:00:00 Patient Secure Msg Doctor Unassigned, [place] [facility] 1.840.114 350.1.13.10 4.2.7.2.686 [id number] [facility] 2021-08-07 09:30:00 2021-08-07 10:23:21 Office Visit Ca Martinez [facility]LN[facility] MEDICAL OFFICE BUILDING 1..840.114 350.1.13.10 4.2.7.2.686 [id number] [facility] 2021-08-07 09:30:00 2021-08-07 10:23:21 Outpatient R CA MARTINEZ [facility] [id number] [facility] 2021-08-07 09:30:00 2021-08-07 09:30:00 Outpatient R CA MARTINEZ [facility] [id number] [facility] 2021-08-07 00:00:00 2021-08-07 00:00:00 Patient Secure Msg Ca Martinez [facility]O [facility] MEDICAL OFFICE BUILDING 1..840.114 350.1.13.10 4.2.7.2.686 [id number] [facility] 2021-08-07 00:00:00 2021-08-07 00:00:00 Patient Secure Msg [facility] 1.2.840.114 350.1.13.10 4.2.7.2.686 [id number] [facility] 2021-08-07 00:00:00 2021-08-07 00:00:00 Patient Secure Msg Desiree Mohr [facility] 1.2.840.114 350.1.13.10 4.2.7.2.686 [id number] [facility] 2021-08-04 10:00:00 2021-08-04 10:00:00 Outpatient R PETRA RENO [facility] [id number] [facility] 2021-08-04 00:00:00 2021-08-04 00:00:00 Patient Secure Msg Ca Martinez [facility] BUILD[facility] 1.2.840.114 350.1.13.10 4.2.7.2.686 [id number] [facility] 2021-08-03 11:00:00 2021-08-03 12:48:43 Office Visit Juan Diaz [facility]. 1.2.840.114 350.1.13.10 4.2.7.2.686 [id number] [facility] 2021-08-03 11:00:00 2021-08-03 12:48:43 Outpatient R JUAN DIAZ [facility] [id number] [facility] 2021-08-03 11:00:00 2021-08-03 11:00:00 Outpatient R JUAN DIAZ [facility] [id number] [facility] 2021-08-03 00:00:00 2021-08-03 00:00:00 Patient Secure Msg Desiree Mohr [facility] 1.2.840.114 350.1.13.10 4.2.7.2.686 [id number] [facility] 2021-08-02 00:00:00 2021-08-02 00:00:00 Telephone Juan Ca [facility] T[facility]?KARLOSKassandra [facility] 1.2.840.114 350.1.13.10 4.2.7.2.686 [id number] [facility] 2021-07-21 08:00:00 2021-07-21 08:52:53 Outpatient DARRION QUIROZ HOWARD [facility] [id number] [facility] 2021-07-17 11:30:00 2021-07-17 11:30:00 Outpatient CA ARAUZ [facility] [id number] [facility] 2021-07-17 00:00:00 2021-07-17 00:00:00 Patient Secure Msg Juan Ca [facility] T[facility]?KARLOSKassandra [facility] 1.840.114 350.1.13.10 4.2.7.2.686 [id number] [facility] 2021-06-19 00:00:00 2021-06-19 00:00:00 Telephone Ca Martinez [facility]?LINO [facility] 1.840.114 350.1.13.10 4.2.7.2.686 [id number] [facility] 2021-06-09 00:00:00 2021-06-09 00:00:00 Telephone Reji Garcia [facility] EDNA ESCUDEROIO [facility] 1..840.114 350.1.13.10 4.2.7.2.686 [id number] [facility] 2021-06-06 11:15:00 2021-06-06 11:15:00 Outpatient R TETO CARNES [facility] [id number] [facility] 2021-06-06 11:15:00 2021-06-06 11:15:00 Outpatient R TETO CARNES [facility] [id number] [facility] 2021-06-02 15:45:00 2021-06-02 15:45:00 Outpatient R CRISTINACARMELINA IBRAHIMRICO [facility] [id number] [facility] 2021-05-31 10:00:00 2021-05-31 10:46:31 Outpatient R CA MARTINEZ [facility] [id number] [facility] 2021-05-31 10:00:00 2021-05-31 10:46:31 Office Visit Juan Ca [facility]?LINO [facility] 1.840.114 350.1.13.10 4.2.7.2.686 [id number] [facility] 2021-05-31 10:00:00 2021-05-31 10:46:31 Outpatient R CA MARTINEZ [facility] [id number] [facility] 2021-05-31 00:00:00 2021-05-31 00:00:00 Orders Only Doctor Unassigned, [place] [facility] 1.84.114 350.1.13.10 4.2.7.2.686 [id number] [facility] 2021-05-26 00:00:00 2021-05-26 00:00:00 [facility] 1.84.114 350.1.13.10 4.2.7.2.686 [id number] [facility] 2021-05-26 00:00:00 2021-05-26 00:00:00 Patient Secure Msg Prasanna Vargas [facility] PROFESS[facility] NAL BUILD[facility] 1.114 350.1.13.10 4.2.7.2.686 [id number] [facility] 2021-05-25 14:00:00 2021-05-25 14:30:00 Telemedici ne Visit Skylar Groves [facility] 1.2.840.114 350.1.13.10 4.2.7.2.686 [id number] [facility] 2021-05-25 14:00:00 2021-05-25 14:00:00 Outpatient R SKYLAR GROVES [facility] [id number] [facility] 2021-05-25 14:00:00 2021-05-25 14:00:00 Outpatient R SKYLAR GROVES [facility] [id number] [facility] 2021-05-25 00:00:00 2021-05-25 00:00:00 Patient Secure Msg Skylar Groves [facility] TALYA?[facility] MEDICAL OFFICE BUILDING 1.2.840.114 350.1.13.10 4.2.7.2.686 [id number] [facility] 2021-05-25 00:00:00 2021-05-25 00:00:00 Patient Secure Msg Skylar Groves [facility] TALYA?[facility] MEDICAL OFFICE BUILDING 1.2.840.114 350.1.13.10 4.2.7.2.686 [id number] [id number] [facility] 2021-05-24 00:00:00 2021-05-24 00:00:00 Telephone Rad Serra [facility] EDNA [facility] BUILDING 1.2.840.114 350.1.13.10 4.2.7.2.686 [id number] [id number] [facility] 2021-05-24 00:00:00 2021-05-24 00:00:00 Patient Secure Msg Rad SerraPilarPauloPilar [facility] BUILDING 1.2.840.114 350.1.13.10 4.2.7.2.686 [id number] [id number] [facility] 2021-05-24 00:00:00 2021-05-24 00:00:00 Patient Secure Msg Claudette Evans [facility] TALYA?[facility] MED[facility] OFFICE BUILDING 1..840.114 350.1.13.10 4.2.7.2.686 [id number] [id number] [facility] 2021-05-23 10:00:00 2021-05-23 10:00:00 Outpatient R [facility] [id number] [facility] 2021-05-23 10:00:00 2021-05-23 10:00:00 Outpatient R [facility] [id number] [facility] 2021-05-23 00:00:00 2021-05-23 00:00:00 Patient Secure Msg [facility] MEDICAL OFFICE BUILDING 1.2.840.114 350.1.13.10 4.2.7.2.686 [id number] [id number] [facility] 2021-05-16 09:00:00 2021-05-16 09:00:00 Outpatient R TETO CARNES [facility] [id number] [facility] 2021-05-12 00:00:00 2021-05-12 00:00:00 Orders Only Doctor Unassigned, [place] [facility] 1..840.114 350.1.13.10 4.2.7.2.686 [id number] [facility] 2021-05-10 13:00:00 2021-05-10 13:00:00 Outpatient R CLAUDETTE EVANS [facility] [id number] [facility] 2021-05-10 13:00:00 2021-05-10 13:00:00 Outpatient Farzana CLINECRISTINACLAUDETTE IBRAHIM [facility] [id number] [facility] 2021-05-09 00:00:00 2021-05-09 00:00:00 Tele[facility] BUILD[facility] 1.2.840.114 350.1.13.10 4.2.7.2.686 [id number] [facility] 2021-05-09 00:00:00 2021-05-09 00:00:00 Patient Secure Msg Rad Serra K.HPilar [facility] BUILDING 1..840.114 350.1.13.10 4.2.7.2.686 [id number] [facility] 2021-05-08 16:00:00 2021-05-08 16:00:00 Outpatient JE CRABTREE [facility] [id number] [facility] 2021-05-08 16:00:00 2021-05-08 16:00:00 Outpatient JE CRABTREE [facility] [id number] [facility] 2021-05-08 00:00:00 2021-05-08 00:00:00 Patient Secure Msg Rad Serra K.HPilar [facility] BUILDING 1..840.114 350.1.13.10 4.2.7.2.686 [id number] [id number] [facility] 2021-05-08 00:00:00 2021-05-08 00:00:00 Patient Secure Msg Rad Serra K.HPilar [facility] BUILDING 1.2.840.114 350.1.13.10 4.2.7.2.686 [id number] [id number] [facility] 2021-05-04 00:00:00 2021-05-04 00:00:00 Patient Secure Msg Delroy Sendzohra K.HPilar [facility] BUILDING 1.840.114 350.1.13.10 4.2.7.2.686 [id number] [id number] [facility] 2021-05-04 00:00:00 2021-05-04 00:00:00 Patient Secure Msg Radha [facility] BUILDING 1.84.114 350.1.13.10 4.2.7.2.686 [id number] [facility] 2021-05-03 11:15:36 2021-05-03 23:59:00 Outpatient R RADHA [facility] [id number] [facility] 2021-05-03 11:15:36 2021-05-03 23:59:00 [facility] 1.84.114 350.1.13.10 4.2.7.2.686 [id number] [facility] 2021-05-03 00:00:00 2021-05-03 00:00:00 Telephone Claud[facility] MEDICAL OFFICE BUILDING 1.84.114 350.1.13.10 4.2.7.2.686 [id number] [id number] [facility] 2021-05-02 00:00:00 2021-05-02 00:00:00 Telephone Rad Serra [facility] BUILDING 1.840.114 350.1.13.10 4.2.7.2.686 [id number] [facility] 2021-05-02 00:00:00 2021-05-02 00:00:00 Patient Secure Msg Cristina Claudette Kassandra [facility] TALYA?[facility] MEDICAL OFFICE BUILDING 1.2840.114 350.1.13.10 4.2.7.2.686 [id number] 044 [id number] [facility] 2021-05-02 00:00:00 2021-05-02 00:00:00 Telephone Claudette Evans [facility] TALYA?[facility] OFFICE BUILDING 1.2.840.114 350.1.13.10 4.2.7.2.686 [id number] 044 [id number] [facility] 2021-05-02 00:00:00 2021-05-02 00:00:00 Patient Secure Msg DelroyRadPaulo. [facility] PROFESSIO NAL BUILDING 1.284.114 350.1.13.10 4.2.7.2.686 [id number] [id number] [facility] 2021-05-02 00:00:00 2021-05-02 00:00:00 Patient Secure Msg Claudette Evans [facility] TALYA?[facility] OFFICE BUILDING 1.2840.114 350.1.13.10 4.2.7.2.686 [id number] 044 [id number] [facility] 2021-04-28 00:00:00 2021-04-28 00:00:00 Patient Secure Msg Claudette Evans [facility] TALYA?[facility] OFFICE BUILDING 1.2840.114 350.1.13.10 4.2.7.2.686 [id number] [facility] 2021-04-27 14:24:00 2021-04-27 15:49:00 Emergency X MAGGIE HAMILTON [facility] [id number] [facility] 2021-04-27 14:24:00 2021-04-27 15:49:00 Emergency Maggie Hamilton [facility] 1.2840.114 350.1.13.10 4.2.7.2.686 [id number] [facility] 2021-04-27 11:15:00 2021-04-27 11:30:00 Laboratory Only Only, Ang Db Test Unknown, Attending Thony Johnson [facility] BUILDING 1.114 350.1.13.10 4.2.7.2.686 [id number] [facility] 2021-04-27 11:15:00 2021-04-27 11:15:00 Outpatient R THONY JOHNSON [facility] [id number] [facility] 2021-04-27 00:00:00 2021-04-27 00:00:00 Orders Only Doctor Unassigned, [place] [facility] 1.114 350.1.13.10 4.2.7.2.686 [id number] [facility] 2021-04-20 15:00:00 2021-04-20 15:00:00 Outpatient R SCOTT GILBERT [facility] [id number] [facility] 2021-04-13 00:00:00 2021-04-13 00:00:00 Patient Secure Msg Claudette Evans [facility] TALYA?[facility] MEDICAL OFFICE BUILDING 1.114 350.1.13.10 4.2.7.2.686 [id number] [id number] [facility] 2021-04-12 00:00:00 2021-04-12 00:00:00 Telephone CristinaClaudette ibrahim [facility] TALYA?[facility] MEDICAL OFFICE BUILDING 1.114 350.1.13.10 4.2.7.2.686 [id number] 044 [id number] [facility] 2021-03-27 00:00:00 2021-03-27 00:00:00 Telephone Prasanna Vargas [facility] EDNA ESCUDEROIO NAL BUILDING 1.114 350.1.13.10 4.2.7.2.686 [id number] [facility] 2021-03-24 00:00:00 2021-03-24 00:00:00 Patient Secure Msg Doctor Unassigned, [place] [facility] 1..114 350.1.13.10 4.2.7.2.686 [id number] [facility] 2021-03-23 13:30:00 2021-03-23 13:30:00 [facility] [id number] [facility] 2021-03-23 13:30:00 2021-03-23 13:30:00 Outpatient R KAVYA [facility] [id number] [facility] 2021-03-22 09:20:00 2021-03-22 09:20:00 [facility] [id number] [facility] 2021-03-22 09:20:00 2021-03-22 09:20:00 Outpatient R ADITYA MEEKS STRAAZEz [facility] [id number] [facility] 2021-03-20 00:00:00 2021-03-20 00:00:00 Outpatient R CLAUDETTE EVANS [facility] [id number] [facility] 2021-03-18 00:00:00 2021-03-18 00:00:00 Case Management Claudette Evans A [facility] TALYA?[facility] MEDICAL OFFICE BUILDING 1.840.114 350.1.13.10 4.2.7.2.686 [id number] [facility] 2021-03-16 11:16:07 2021-03-16 11:31:07 Climate Change Risk Assessor Visit Lab, Ang - Db Claudette Evans A [facility] TALYA?[facility] MEDICAL OFFICE BUILDING 1.840.114 350.1.13.10 4.2.7.2.686 [id number] [facility] 2021-03-16 11:30:00 2021-03-16 11:30:00 Outpatient R CLAUDETTE EVANS [facility] [id number] [facility] 2021-03-16 11:00:00 2021-03-16 11:14:45 Outpatient R CLAUDETTE EVANS [facility] [id number] [facility] 2021-03-16 10:00:58 2021-03-16 11:14:45 Office Visit Claudette [facility] BABIN?[facility] MEDICAL OFFICE BUILDING 1.2.840.114 350.1.13.10 4.2.7.2.686 [id number] [id number] [facility] 2021-03-16 00:00:00 2021-03-16 00:00:00 Patient Secure Msg Claudette Evans [facility] BABIN?[facility] MEDICAL OFFICE BUILDING 1.2.840.114 350.1.13.10 4.2.7.2.686 [id number] [id number] [facility] 2021-03-02 16:15:00 2021-03-02 16:15:00 Outpatient R CARMELINA EVANSTAINAANITRA [facility] [id number] [facility] 2021-02-28 18:30:00 2021-02-28 18:30:00 Outpatient R WILLIE MEDRANO [facility] [id number] [facility] 2021-02-28 00:00:00 2021-02-28 00:00:00 [facility] Medical Office Building 1.2.840.114 350.1.13.10 4.2.7.2.686 [id number] [facility] 2021-02-27 09:00:00 2021-02-27 09:00:00 Outpatient R AMELIA HAMMOND [facility] [id number] [facility] 2021-02-23 00:00:00 2021-02-23 00:00:00 Telephone Claudette Evans A [facility] Talya?[facility] Medical Office Building 1.2.840.114 350.1.13.10 4.2.7.2.686 [id number] [facility] 2021-02-10 18:12:00 2021-02-10 23:39:00 Emergency Kaycee Méndez [facility] 1.2840.114 350.1.13.10 4.2.7.2.686 [id number] [facility] 2021-02-10 00:00:00 2021-02-10 00:00:00 Patient Secure Msg Branden Evansful Kassandra [facility] ROSENE?[facility] MEDICAL OFFICE BUILDING 1.2840.114 350.1.13.10 4.2.7.2.686 [id number] [id number] [facility] 2021-02-10 00:00:00 2021-02-10 00:00:00 Patient Secure Msg Branden Evansful Kassandra [facility] ROSENE?[facility] MEDICAL OFFICE BUILDING 1.2840.114 350.1.13.10 4.2.7.2.686 [id number] [facility] 2021-02-10 00:00:00 2021-02-10 00:00:00 Patient Secure Msg Branden Evansful [facility] TALYA?[facility] MEDICAL OFFICE BUILDING 1.2840.114 350.1.13.10 4.2.7.2.686 [id number] 044 [id number] [facility] 2021-02-10 00:00:00 2021-02-10 00:00:00 Patient Secure Msg Carmelina Evansdiful A [facility] ANGLEROBERTA TALYA?[facility] MEDICAL OFFICE BUILDING 1.2840.114 350.1.13.10 4.2.7.2.686 [id number] [id number] [facility] 2021-02-09 13:40:00 2021-02-09 23:59:00 Hospital Encounter [facility] Medical Office Building 1.2.840.114 350.1.13.10 4.2.7.2.686 [id number] [facility] 2021-02-09 13:49:05 2021-02-09 14:04:05 Climate Change Risk Assessor Visit Lab, Ang - Db Claudette Evans [facility] Talya?[facility] Medical Office Building 1.2.840.114 350.1.13.10 4.2.7.2.686 [id number] [facility] 2021-02-09 12:23:13 2021-02-09 13:47:12 Office Visit [facility] Medical Office Building 1.2.840.114 350.1.13.10 4.2.7.2.686 [id number] [facility] 2021-02-09 13:00:00 2021-02-09 13:00:00 Outpatient R CRISTINACARMELINA IBRAHIMRICO [facility] [id number] [facility] 2021-02-09 00:00:00 2021-02-09 00:00:00 Patient Secure Msg Doctor Unassigned, [place] [facility] 1.2.840.114 350.1.13.10 4.2.7.2.686 [id number] [facility] 2021-02-08 10:20:00 2021-02-08 10:20:00 Outpatient ADITYA FRAUSTO STRAHIL [facility] [id number] [facility] 2021-02-07 00:00:00 2021-02-07 00:00:00 Patient Secure Msg Claudette Evans [facility] TALYA?[facility] MEDICAL OFFICE BUILDING 1.2.840.114 350.1.13.10 4.2.7.2.686 [id number] [facility] 2021-02-02 10:30:00 2021-02-02 10:30:00 Outpatient Farzana COHNBRODIESKYLAR [facility] [id number] [facility] 2021-02-02 00:00:00 2021-02-02 00:00:00 Telephone Claudette Evans [facility] Talya?[facility] Medical Office Building 1.2.840.114 350.1.13.10 4.2.7.2.686 [id number] [facility] 2021-02-01 08:30:00 2021-02-01 08:30:00 Outpatient SKYLAR CEBALLOS [facility] [id number] [facility] 2021-01-31 18:44:04 2021-01-31 19:41:26 [facility] Medical Office Building 1.2.840.114 350.1.13.10 4.2.7.2.686 [id number] [facility] 2021-01-31 19:00:00 2021-01-31 19:00:00 Outpatient R FLACO BOYD [facility] [id number] [facility] 2021-01-31 00:00:00 2021-01-31 00:00:00 Telephone Claudette Evans [facility] Talya?[facility] Medical Office Building 1.2.840.114 350.1.13.10 4.2.7.2.686 [id number] [facility] 2021-01-31 00:00:00 2021-01-31 00:00:00 Patient Secure Msg Claudette Evans [facility] TALYA?LINO [facility] MEDICAL OFFICE BUILDING 1.84.114 350.1.13.10 4.2.7.2.686 [id number] [id number] [facility] 2021-01-30 00:00:00 2021-01-30 00:00:00 Telephone Rad Serra [facility] Building 1.84.114 350.1.13.10 4.2.7.2.686 [id number] [id number] [facility] 2021-01-30 00:00:00 2021-01-30 00:00:00 Patient Secure g Claudette Evans [facility] OFFICE BUILDING ONE 1.84.114 350.1.13.10 4.2.7.2.686 [id number] [facility] 2021-01-26 14:00:00 2021-01-26 14:00:00 Outpatient R RAD SERRA [facility] [id number] [facility] 2021-01-26 00:00:00 2021-01-26 00:00:00 Patient Secure g Skylar Groves [facility] TALYA?LINO [facility] MEDICAL OFFICE BUILDING 1.840.114 350.1.13.10 4.2.7.2.686 [id number] [id number] [facility] 2021-01-25 15:00:00 2021-01-25 15:00:00 Outpatient R [facility] [id number] [facility] 2021-01-21 00:00:00 2021-01-21 00:00:00 Patient Secure Msg Skylar Groves [facility] TALYA?LINO [facility] MEDICAL OFFICE BUILDING 1.84.114 350.1.13.10 4.2.7.2.686 [id number] [id number] [facility] 2021-01-20 16:51:22 2021-01-20 17:12:41 Telemedici ne Visit Skylar Groves [facility]?Karloskassandra [facility] Medical Office Building 1.2.840.114 350.1.13.10 4.2.7.2.686 [id number] [facility] 2021-01-20 16:30:00 2021-01-20 16:30:00 Outpatient R SKYLAR GROVES [facility] [id number] [facility] 2021-01-19 10:15:00 2021-01-19 10:15:00 Outpatient R KAYLEY GARCÍA [facility] [id number] [facility] 2021-01-14 00:00:00 2021-01-14 00:00:00 Case Management Kassandra Benavides [facility] 1.2840.114 350.1.13.10 4.2.7.2.686 [id number] [facility] 2021-01-14 00:00:00 2021-01-14 00:00:00 Patient Secure Msg Doctor Unassigned, [place] [facility] 1.2840.114 350.1.13.10 4.2.7.2.686 [id number] [facility] 2021-01-12 16:10:00 2021-01-12 19:45:00 Emergency MatthewsHany elkins R [facility] 1.2.840.114 350.1.13.10 4.2.7.2.686 [id number] [facility] 2021-01-12 15:20:00 2021-01-12 15:20:00 Outpatient WILLIE CASE [facility] [id number] [facility] 2021-01-12 14:46:57 2021-01-12 15:06:57 Urgent Care Thony Johnson [facility]?Lino [facility] Medical Office Building 1.2.840.114 350.1.13.10 4.2.7.2.686 [id number] [facility] 2020-12-26 15:30:00 2020-12-26 16:13:32 Outpatient R RAD SERRA [facility] [id number] [facility] 2020-12-26 15:30:00 2020-12-26 16:13:32 Office Visit Rad Serra [facility] BUILDING 1..840.114 350.1.13.10 4.2.7.2.686 [id number] [facility] 2020-12-26 15:00:32 2020-12-26 16:13:32 Office Visit Rad Serra [facility] Building 1..840.114 350.1.13.10 4.2.7.2.686 [id number] [facility] 2020-12-26 15:30:00 2020-12-26 15:30:00 Outpatient R RAD SERRA [facility] [id number] [facility] 2020-11-29 00:00:00 2020-11-29 00:00:00 Patient Secure Msg Rad Serra [facility] BUILDING 1.2.840.114 350.1.13.10 4.2.7.2.686 [id number] [facility] 2020-11-22 11:00:00 2020-11-22 11:00:00 Outpatient R DESIREE MOHR [facility] [id number] [facility] 2020-11-10 18:42:46 2020-11-10 19:53:43 Urgent Care Alissa Collins [facility] Office Building One 1..840.114 350.1.13.10 4.2.7.2.686 [id number] 2020-11-10 19:00:00 2020-11-10 19:00:00 Outpatient R [facility] [id number] [facility] 2020-10-31 18:52:00 2020-10-31 22:15:00 [facility] 1.2840.114 350.1.13.10 4.2.7.2.686 [id number] 2020-10-31 19:00:00 2020-10-31 19:00:00 Outpatient BEBA TUTTLE [facility] [id number] [facility] 2020-10-31 00:00:00 2020-10-31 00:00:00 Orders Only Doctor Unassigned, [place] [facility] 1.2840.114 350.1.13.10 4.2.7.2.686 [id number] 2020-10-20 14:02:00 2020-10-20 17:13:00 [facility] 1.2840.114 350.1.13.10 4.2.7.2.686 [id number] 2020-10-18 00:00:00 2020-10-18 00:00:00 Patient Secure Msg Prasanna Vargas [facility] PROFESSIO [facility] BUILDING 1.2840.114 350.1.13.10 4.2.7.2.686 [id number] [facility] 2020-10-14 10:00:00 2020-10-14 23:59:00 Hospital Encounter Prasanna Vargas [facility] 1.2840.114 350.1.13.10 4.2.7.2.686 [id number] 2020-10-14 13:30:00 2020-10-14 13:30:00 DESIREE Villagran [facility] [id number] [facility] 2020-10-11 00:00:00 2020-10-11 00:00:00 Patient Secure g Prasanna Vargas [facility] PROFESSIO NAL BUILDING 1.2.840.114 350.1.13.10 4.2.7.2.686 [id number] [facility] 2020-10-11 00:00:00 2020-10-11 00:00:00 Patient Secure g [facility] 1.2.840.114 350.1.13.10 4.2.7.2.686 [id number] [facility] 2020-10-09 12:00:00 2020-10-09 15:57:00 Emergency Lydia Kim [facility] 1.2.840.114 350.1.13.10 4.2.7.2.686 [id number] 084 [id number] 2020-10-07 00:00:00 2020-10-07 00:00:00 Patient Secure g [facility] BUILD[facility] 1.2.840.114 350.1.13.10 4.2.7.2.686 [id number] [facility] 2020-10-07 00:00:00 2020-10-07 00:00:00 Patient Secure g Prasanna Vargas [facility] PROFESSIO NAL BUILDING 1.2.840.114 350.1.13.10 4.2.7.2.686 [id number] [facility] 2020-10-07 00:00:00 2020-10-07 00:00:00 Patient Secure Msg [facility] 1.2.840.114 350.1.13.10 4.2.7.2.686 [id number] [facility] 2020-10-07 00:00:00 2020-10-07 00:00:00 Patient Secure g Prasanna Vargas [facility] 1.2.840.114 350.1.13.10 4.2.7.2.686 [id number] 134 [id number] [facility] 2020-10-07 00:00:00 2020-10-07 00:00:00 Patient Secure g Prasanna Vargas [facility] PROFESS[facility] BUILD[facility] 1.2.840.114 350.1.13.10 4.2.7.2.686 [id number] 134 [id number] [facility] 2020-10-07 00:00:00 2020-10-07 00:00:00 [facility] 1.2.840.114 350.1.13.10 4.2.7.2.686 [id number] 134 [id number] [facility] 2020-10-07 00:00:00 2020-10-07 00:00:00 Patient Secure g Prasanna Vargas [facility] 1.2.840.114 350.1.13.10 4.2.7.2.686 [id number] 134 [id number] [facility] 2020-10-06 08:53:00 2020-10-06 09:46:44 [facility] 1.2.840.114 350.1.13.10 4.2.7.2.686 [id number] 134 [id number] 2020-10-06 09:30:00 2020-10-06 09:30:00 Outpatient PRASANNA LOOMIS [facility] [id number] [facility] 2020-10-04 14:00:00 2020-10-04 14:00:00 Outpatient DESIREE STONE [facility] [id number] [facility] 2020-09-30 10:30:00 2020-09-30 10:30:00 Outpatient R ONUR DESIREE [facility] [id number] [facility] 2020-09-29 13:45:00 2020-09-29 13:45:00 Outpatient R PREET SHAY [facility] [id number] [facility] 2020-09-06 15:30:00 2020-09-06 15:30:00 Outpatient Farzana VARGAS PRASANNA [facility] [id number] [facility] 2020-09-05 00:00:00 2020-09-05 00:00:00 Patient Secure Prasanna Kang [facility] 1.2.840.114 350.1.13.10 4.2.7.2.686 [id number] 134 [id number] [facility] 2020-09-02 15:40:00 2020-09-02 15:40:00 Outpatient DARRION QUIROZ HOWARD [facility] [id number] [facility] 2020-08-31 10:30:00 2020-08-31 10:30:00 Outpatient RAD MATAMOROS [facility] [id number] [facility] 2020-08-31 00:00:00 2020-08-31 00:00:00 Patient Secure Prasanna Kang [facility] 1.2.840.114 350.1.13.10 4.2.7.2.686 [id number] 134 [id number] [facility] 2020-08-18 09:30:00 2020-08-18 09:30:00 Outpatient PRASANNA LOOMIS [facility] [id number] [facility] 2020-08-11 13:30:00 2020-08-11 13:30:00 Outpatient PRASANNA OLOMIS [facility] [id number] [facility] 2020-08-04 14:00:00 2020-08-04 14:00:00 Outpatient R OZZYROBBYSCOTT [facility] [id number] [facility] 2020-07-28 10:30:00 2020-07-28 10:30:00 Outpatient R RAD SERRA [facility] [id number] [facility] 2020-06-30 16:15:00 2020-06-30 16:15:00 Outpatient R CLAUDETTE EVANS [facility] [id number] [facility] [facility] 15:00:00 2020-06-17 15:00:00 Outpatient R DARRION ARMSTRONG HOWARD [facility] [id number] [facility] 2020-06-16 15:30:00 2020-06-16 15:30:00 Outpatient R RAD SERRA [facility] [id number] [facility] 2020-06-09 12:30:00 2020-06-09 12:30:00 Outpatient R NI DISLA [facility] [id number] [facility] 2020-06-08 08:00:00 2020-06-08 08:00:00 Outpatient R NI DISLA [facility] [id number] [facility] 2020-06-02 09:00:00 2020-06-02 09:00:00 Outpatient R RAD SERRA [facility] [id number] [facility] 2020-05-28 10:00:00 2020-05-28 10:00:00 Outpatient R BEBA KAUR [facility] [id number] [facility] 2020-05-26 00:00:00 2020-05-26 00:00:00 Patient Secure Claudette Corea [facility] 1.2.840.114 350.1.13.10 4.2.7.2.686 [id number] [facility] 2020-05-24 10:00:00 2020-05-24 10:00:00 Outpatient R NI DISLA [facility] [id number] Jamal jones [facility] 2020-05-24 00:00:00 2020-05-24 00:00:00 Patient Secure g Doctor Unassigned, [place] [facility] 1.2.840.114 350.1.13.10 4.2.7.2.686 [id number] [facility] 2020-05-19 16:30:00 2020-05-19 16:30:00 Outpatient R OSITO SANTIAGO [facility] [id number] [facility] 2020-05-17 13:00:00 2020-05-17 13:00:00 Outpatient DARRION QUIROZ HOWARD [facility] [id number] [facility] 2020-05-16 16:00:00 2020-05-16 16:00:00 Outpatient R CLAUDETTE EVANS [facility] [id number] [facility] 2020-05-09 00:00:00 2020-05-09 00:00:00 Patient Secure Msg Evans Claudette Cannon [facility] 1.2.840.114 350.1.13.10 4.2.7.2.686 [id number] [facility] 2020-05-08 10:24:00 2020-05-08 13:03:00 Emergency X OLAMIDE GARVIN [facility] [id number] [facility] 2020-05-03 15:00:00 2020-05-03 15:00:00 Outpatient R CLAUDETTE EVANS [facility] [id number] [facility] 2020-04-30 11:14:00 2020-05-01 15:50:00 Outpatient X RODRIGUEZ HOFF [facility] [id number] [facility] 2020-04-30 10:20:00 2020-04-30 10:20:00 Outpatient R ROSALES SHAY [facility] [id number] [facility] 2020-04-30 10:15:00 2020-04-30 10:15:00 Outpatient R ROSALES SHAY [facility] [id number] [facility] 2020-04-29 00:00:00 2020-04-29 00:00:00 Patient Secure Msg Heaven [facility] 1..840.114 350.1.13.10 4.2.7.2.686 [id number] [facility] 2020-04-28 14:00:00 2020-04-28 14:00:00 Outpatient R OSITO SANTIAGO [facility] [id number] [facility] 2020-04-25 16:15:00 2020-04-25 16:15:00 Outpatient R CLAUDETTE EVANS [facility] [id number] [facility] 2020-04-22 00:00:00 2020-04-22 00:00:00 [facility] 1..840.114 350.1.13.10 4.2.7.2.686 [id number] [facility] 2020-04-18 10:00:00 2020-04-18 10:00:00 Outpatient OSITO AMARO [facility] [id number] [facility] 2020-04-15 10:30:00 2020-04-15 10:30:00 Outpatient RAD MATAMOROS [facility] [id number] [facility] 2020-04-12 13:38:00 2020-04-13 16:25:00 [facility] [id number] 2020-03-17 16:15:00 2020-03-17 16:15:00 Outpatient TETO BRANTLEY [facility] [id number] [facility] 2020-03-04 00:00:00 2020-03-04 00:00:00 RefHeaven Centenosir [facility] 1..840.114 350.1.13.10 4.2.7.2.686 [id number] 2020-02-25 16:00:00 2020-02-25 16:00:00 Outpatient R OSITO SANTIAGO [facility] [id number] [facility] 2020 14:00:00 2020 14:00:00 Outpatient R TETO CARNES [facility] [id number] [facility] 2020-02-08 10:30:00 2020-02-08 10:30:00 Outpatient R PRASANNA VARGAS [facility] [id number] [facility] 2020-02-05 00:00:00 2020-02-05 00:00:00 Patient Secure Msg Prasanna Vargas [facility] 1..840.114 350.1.13.10 4.2.7.2.686 [id number] [facility] 2020-02-04 13:30:00 2020-02-04 13:30:00 Outpatient R JACK OSITO [facility] [id number] [facility] 2020-01-23 10:15:00 2020-01-23 10:15:00 Outpatient R [facility] [id number] [facility] 2020-01-21 13:00:00 2020-01-21 13:00:00 Outpatient R OSITO SANTIAGO [facility] [id number] [facility] 2020-01-14 16:00:00 2020-01-14 16:00:00 Outpatient R OSITO SANTIAGO [facility] [id number] [facility] 2020-01-05 13:45:00 2020-01-05 13:45:00 Outpatient R PRASANNA VARGAS [facility] [id number] [facility] 2020-01-05 00:00:00 2020-01-05 00:00:00 Patient Secure Msg Prasanna Vargas [facility] 1.2.840.114 350.1.13.10 4.2.7.2.686 [id number] [facility] 2019-12-03 10:30:00 2019-12-03 10:30:00 Outpatient R RENATASOPHIACRICKET [facility] [id number] [facility] 2019-11-27 11:00:00 2019-11-27 11:00:00 Outpatient Farzana CARNES TETO [facility] [id number] [facility] 2019-11-26 00:00:00 2019-11-26 00:00:00 Patient Secure Msg Doctor Unassigned, [place] [facility] 1.2.840.114 350.1.13.10 4.2.7.2.686 [id number] [facility] 2019-11-25 08:00:00 2019-11-25 08:00:00 [facility] [id number] [facility] 2019-11-23 00:00:00 2019-11-23 00:00:00 Patient Secure Msg Doctor Unassigned, [place] [facility] 1.2.840.114 350.1.13.10 4.2.7.2.686 [id number] [facility] 2019-11-18 10:00:00 2019-11-18 10:00:00 [facility] [id number] [facility] 2019-11-17 00:00:00 2019-11-17 00:00:00 Patient Secure Msg Doctor Unassigned, [place] [facility] 1.2.840.114 350.1.13.10 4.2.7.2.686 [id number] [facility] 2019-11-13 00:00:00 2019-11-13 00:00:00 Patient Secure Msg Vargas, Prasanna [facility] 1.2.840.114 350.1.13.10 4.2.7.2.686 [id number] [facility] 2019-09-02 11:00:00 2019-09-02 11:00:00 Outpatient R CRICKET TAYLOR [facility] [id number] [facility] 2019-08-14 10:15:00 2019-08-14 10:15:00 Outpatient R TETO CARNES [facility] [id number] [facility] 2019-08-13 11:00:00 2019-08-13 11:00:00 Outpatient R CRICKET TAYLOR [facility] [id number] [facility] 2019-08-12 09:00:00 2019-08-12 09:00:00 Outpatient R [facility] [id number] [facility] 2019-07-20 16:06:00 2019-07-20 16:06:00 Outpatient P PRASANNA VARGAS [facility] [id number] [facility] 2019-07-20 08:15:00 2019-07-20 08:15:00 Outpatient R CRICKET TAYLOR [facility] [id number] [facility] 2019-07-13 08:00:00 2019-07-13 08:00:00 Outpatient R CRICKET TAYLOR [facility] [id number] [facility] 2019-07-12 13:39:00 2019-07-12 13:39:00 Outpatient PRASANNA HERRERA [facility] [id number] [facility] 2019-07-06 13:00:00 2019-07-06 13:00:00 Outpatient R CRICKET TAYLOR [facility] [id number] [facility] 2019-06-13 10:40:46 2019-06-13 12:35:00 Emergency X SARAHI AVILA [facility] [id number] [facility] 2019-05-13 23:07:00 2019-05-14 09:15:00 Outpatient P PRASANNA VARGAS [facility] [id number] [facility] Results Test Description Test [...] neck. Nosigns of bowel herniation. [facility] 13:44:31* Test Item Value Reference Range Interpretation Comme nts LIPASE (test code = 8003852303) 56 U/L 0-220 Lab Interpretation (test cod e = 24959-8) Normal [facility] with [id number] 13:31:50* Test Item Value Reference Range Interpretation [...] 32.5 g/dL 31.6-35.1 RDW-SD (test code = 05537-8) 43.7 fL 39.0-49.9 RDW-CV (test code = 788-0) 13.1 % 12.0-15.5 PLT (test code = 777-3) 286 166-358 MPV (test code = 41515-7) 9.8 fL 9.5-12.9 NRBC/100 WBC (test code = 4926843669) 0.0 0.0-10.0 NRBC x10^3 (test code = 6289606964) See_Comment [Automated messa ge] The system which generated this result transmitted reference range: 10*3/?L. The reference range was not used to interpret this result as normal/abnormal. GRAN MAT (NEUT) % (test code = 770-8) 52.3 % IMM GRAN % (test code = 8576513169) 0.20 % LYMPH % (test code = 736-9) 32.4 % MONO % (test code = 5905-5) 5.4 % EOS % (test code = 713-8) 9.2 % BASO % (test code = 706-2) 0.5 % GRAN MAT x10^3(ANC) (test code = 0518602342) 3.20 10*3/uL 1.88-7.09 IMM GRAN x10^3 (test code = 0571147335) 0.00-0.06 LYMPH x10^3 (test code = 731-0) 1.98 10*3/uL 1.32-3.29 MONO x10^3 (test code = 742-7) 0.33 10*3/uL 0.33-0.92 EOS x10^3 (test code = 711-2) 0.56 10*3/uL 0.03-0.39 H BASO x10^3 (test code = 704-7) 0.03 10*3/uL 0.01-0.07 Lab Interpretation (test code = 04364-7) Abnormal [facility] [id number] 13:22:00* Test Item Value Reference Range Interpretation Comme nts POCT PREG (test code = 1605) Negative On board controls acceptable with C Line (test code = 3574) Yes POCT PREG LOT # (test code = 3575) [id number] POCT PREG TEST DATE ( test code = 3576) 10/05/2025 Lab Interpretation (test cod e = 67010-4) Normal [facility]OLIC PANEL (90910)2024-05-19 20:23:04* Test Item Value Reference Range Interpretation Comme nts NA (test code = 8331484139) 139 mmol/L 135-145 K (test code = 7359250526) 3.8 mmol/L 3.5-5.0 CL (test code = 2157381107) 110 mmol/L 98-108 H CO2 TOTAL (test code = 3700932338) 19 mmol/L 23-31 L AGAP (test code = 5388549020) 10 2-16 BUN (test code = 4093396422) 7 mg/dL 7-23 GLUCOSE (test code = 1700297741) 111 mg/dL 70-110 H CREATININE (test code = 2160-0) 0.69 mg/dL 0.50-1.04 TOTAL BILI (test code = 0023677599) 1.3 mg/dL 0.1-1.1 H CALCIUM (test code = 7651403352) 9.9 mg/dL 8.6-10.6 T PROTEIN (test code = 4192677403) 8.6 g/dL 6.3-8.2 H ALBUMIN (test code = 5810431611) 5.2 g/dL 3.5-5.0 H ALK PHOS (test code = 2272577106) 85 U/L 34-122 ALTv (test code = 1742-6) 16 U/L 5-35 AST(SGOT) (test code = 2526071269) 25 U/L 13-40 eGFR (test code = 02741-1) 120.7 mL/min/1.73m2 CKD-EPI eGFR (2020). Assuming creatinine has been stable day-to-day for at least three months, the eGFR indicates Category G1 (>= 90 mL/min/1.73 m2) Lab Interpretation (test code = 19990-1) Abnormal [facility]2025-01-07 20:22:43* Test Item Value Reference Range Interpretation Comme nts LIPASE (test code = 5071246260) 46 U/L 0-220 Lab Interpretation (test cod e = 44134-8) Normal [facility] [id number] 20:10:00* Test Item Value Reference Range Interpretation Comme nts POCT PREG (test code = 1605) Negative On board controls acceptable with C Line (test code = 3574) Yes POCT PREG LOT # (test code = 3575) POCT PREG TEST DATE ( test code = 3576) [facility]CBC WITH [id number] 20:08:02* Test Item Value Reference Range Interpretation [...] 33.2 g/dL 31.6-35.1 RDW-SD (test code = 90824-4) 41.0 fL 39.0-49.9 RDW-CV (test code = 788-0) 12.7 % 12.0-15.5 PLT (test code = 777-3) 339 166-358 MPV (test code = 37051-2) 9.7 fL 9.5-12.9 NRBC/100 WBC (test code = 4171220757) 0.0 0.0-10.0 NRBC x10^3 (test code = 8668130655) See_Comment [Automated messa ge] The system which generated this result transmitted reference range: 10*3/?L. The reference range was not used to interpret this result as normal/abnormal. GRAN MAT (NEUT) % (test code = 770-8) 70.5 % IMM GRAN % (test code = 5837845458) 0.30 % LYMPH % (test code = 736-9) 24.0 % MONO % (test code = 5905-5) 3.9 % EOS % (test code = 713-8) 0.8 % BASO % (test code = 706-2) 0.5 % GRAN MAT x10^3(ANC) (test code = 1637538735) 5.58 10*3/uL 1.88-7.09 IMM GRAN x10^3 (test code = 1480574076) 0.00-0.06 LYMPH x10^3 (test code = 731-0) 1.90 10*3/uL 1.32-3.29 MONO x10^3 (test code = 742-7) 0.31 10*3/uL 0.33-0.92 L EOS x10^3 (test code = 711-2) 0.06 10*3/uL 0.03-0.39 BASO x10^3 (test code = 704-7) 0.04 10*3/uL 0.01-0.07 Lab Interpretation (test code = 03405-6) Abnormal [facility] CenterCT Abdomen pelvis wo aybrsbft8976-29-79 15:32:03EXAM: CT ABDOMEN PELVIS WO CONTRAST ORDERING [...] Cesareanchanges are noted in the suprapubic soft tissues.[facility]. Metabolic Panel (43117)2024-04-19 15:11:18* Test Item Value Reference Range Interpretation Comme nts NA (test code = 9213989549) 140 mmol/L 135-145 K (test code = 2922096931) 4.1 mmol/L 3.5-5.0 CL (test code = 8775585118) 108 mmol/L 98-108 CO2 TOTAL (test code = 0455389579) 24 mmol/L 23-31 AGAP (test code = 0576601033) 8 2-16 BUN (test code = 5533582897) 11 mg/dL 7-23 GLUCOSE (test code = 8781653283) 105 mg/dL 70-110 CREATININE (test code = 2160-0) 0.70 mg/dL 0.50-1.04 TOTAL BILI (test code = 4535910578) 1.0 mg/dL 0.1-1.1 CALCIUM (test code = 8132966009) 9.4 mg/dL 8.6-10.6 T PROTEIN (test code = 0158118799) 7.6 g/dL 6.3-8.2 ALBUMIN (test code = 3176233522) 4.7 g/dL 3.5-5.0 ALK PHOS (test code = 7707535252) 75 U/L 34-122 ALTv (test code = 1742-6) 28 U/L 5-35 AST(SGOT) (test code = 6713481767)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 (test code = 54467-6) 120.2 mL/min/1.73m2 CKD-EPI eGFR (2020). Assuming creatinine has been stable day-to-day for at least three months, the eGFR indicates Category G1 (>= 90 mL/min/1.73 m2) Lab Interpretation (test code = 98083-7) Abnormal [facility]. METABOLIC PANEL (41744)2024-02-22 15:40:03* Test Item Value Reference Range Interpretation Comme nts NA (test code = 0114350782) 137 mmol/L 135-145 K (test code = 2502123659) 3.9 mmol/L 3.5-5.0 Slight hemolysis CL (test code = 1082521842) 102 mmol/L 98-108 CO2 TOTAL (test code = 8905136367) 24 mmol/L 23-31 AGAP (test code = 1129410478) 11 2-16 BUN (test code = 8182290801) 9 mg/dL 7-23 Slight hemolysis GLUCOSE (test code = 1066459430) 94 mg/dL 70-110 CREATININE (test code = 2160-0) 0.70 mg/dL 0.50-1.04 TOTAL BILI (test code = 6536543692) 1.0 mg/dL 0.1-1.1 CALCIUM (test code = 4983884919) 9.3 mg/dL 8.6-10.6 T PROTEIN (test code = 4689605784) 8.4 g/dL 6.3-8.2 H ALBUMIN (test code = 2278034261) 5.0 g/dL 3.5-5.0 ALK PHOS (test code = 2713288978) 79 U/L 34-122 Slight hemolysis ALTv (test code = 1742-6) 74 U/L 5-35 H AST(SGOT) (test code = 0034459400) 57 U/L 13-40 H Slight hemolysis eGFR (test code = 05069-6) 120.2 mL/min/1.73m2 CKD-EPI eGFR (2020). Assuming creatinine has been stable day-to-day for at least three months, the eGFR indicates Category G1 (>= 90 mL/min/1.73 m2) Lab Interpretation (test code = 85017-7) Abnormal [facility]CB WITH [id number] 15:35:41* Test Item Value Reference Range Interpretation [...] 34.3 g/dL 31.6-35.1 RDW-SD (test code = 47050-5) 41.3 fL 39.0-49.9 RDW-CV (test code = 788-0) 13.2 % 12.0-15.5 PLT (test code = 777-3) 329 166-358 MPV (test code = 74339-5) 9.9 fL 9.5-12.9 NRBC/100 WBC (test code = 9871825844) 0.0 0.0-10.0 NRBC x10^3 (test code = 6932053310) See_Comment [Automated messa ge] The system which generated this result transmitted reference range: 10*3/?L. The reference range was not used to interpret this result as normal/abnormal. GRAN MAT (NEUT) % (test code = 770-8) 66.5 % IMM GRAN % (test code = 4803593876) 0.30 % LYMPH % (test code = 736-9) 26.8 % MONO % (test code = 5905-5) 3.5 % EOS % (test code = 713-8) 2.3 % BASO % (test code = 706-2) 0.6 % GRAN MAT x10^3(ANC) (test code = 3779381380) 5.71 10*3/uL 1.88-7.09 IMM GRAN x10^3 (test code = 0686836506) 0.03 10*3/uL 0.00-0.06 LYMPH x10^3 (test code = 731-0) 2.30 10*3/uL 1.32-3.29 MONO x10^3 (test code = 742-7) 0.30 10*3/uL 0.33-0.92 L EOS x10^3 (test code = 711-2) 0.20 10*3/uL 0.03-0.39 BASO x10^3 (test code = 704-7) 0.05 10*3/uL 0.01-0.07 Lab Interpretation (test code = 75966-9) Abnormal [facility] WITH [id number] 15:35:41* Test Item Value Reference Range Interpretation [...] 34.3 g/dL 31.6-35.1 RDW-SD (test code = 70989-0) 41.3 fL 39.0-49.9 RDW-CV (test code = 788-0) 13.2 % 12.0-15.5 PLT (test code = 777-3) 329 166-358 MPV (test code = 80022-2) 9.9 fL 9.5-12.9 NRBC/100 WBC (test code = 8605878643) 0.0 0.0-10.0 NRBC x10^3 (test code = 4631129925) See_Comment [Automated messa ge] The system which generated this result transmitted reference range: 10*3/?L. The reference range was not used to interpret this result as normal/abnormal. GRAN MAT (NEUT) % (test code = 770-8) 66.5 % IMM GRAN % (test code = 7921699558) 0.30 % LYMPH % (test code = 736-9) 26.8 % MONO % (test code = 5905-5) 3.5 % EOS % (test code = 713-8) 2.3 % BASO % (test code = 706-2) 0.6 % GRAN MAT x10^3(ANC) (test code = 1587238227) 5.71 10*3/uL 1.88-7.09 IMM GRAN x10^3 (test code = 7204371093) 0.03 10*3/uL 0.00-0.06 LYMPH x10^3 (test code = 731-0) 2.30 10*3/uL 1.32-3.29 MONO x10^3 (test code = 742-7) 0.30 10*3/uL 0.33-0.92 L EOS x10^3 (test code = 711-2) 0.20 10*3/uL 0.03-0.39 BASO x10^3 (test code = 704-7) 0.05 10*3/uL 0.01-0.07 Lab Interpretation (test code = 40072-6) Abnormal [facility]. METABOLIC PANEL (11156)2023-05-19 17:55:27* Test Item Value Reference Range Interpretation Comme nts NA (test code = 1043423975) 138 mmol/L 135-145 K (test code = 4314124619) 3.8 mmol/L 3.5-5.0 CL (test code = 2950317134) 107 mmol/L 98-108 CO2 TOTAL (test code = 4927575616) 21 mmol/L 23-31 L AGAP (test code = 6292125574) 10 2-16 BUN (test code = 3990475618) 8 mg/dL 7-23 GLUCOSE (test code = 5476073962) 89 mg/dL 70-110 CREATININE (test code = 7783246736) 0.69 mg/dL 0.50-1.04 TOTAL BILI (test code = 7393841227) 0.7 mg/dL 0.1-1.1 CALCIUM (test code = 7795550347) 8.3 mg/dL 8.6-10.6 L T PROTEIN (test code = 2579052955) 7.3 g/dL 6.3-8.2 ALBUMIN (test code = 9249163727) 4.1 g/dL 3.5-5.0 ALK PHOS (test code = 0270898775) 107 U/L 34-122 ALTv (test code = 1742-6) 75 U/L 5-35 H AST(SGOT) (test code = 2065355039) 42 U/L 13-40 H eGFR (test code = 04119-4) 121.4 mL/min/1.73m2 CKD-EPI eGFR (2020). Assuming creatinine has been stable day-to-day for at least three months, the eGFR indicates Category G1 (>= 90 mL/min/1.73 m2) Lab Interpretation (test code = 47561-0) [facility]normal [facility]2024-[facility] 16:39:24* Test Item Value Reference Range Interpretation Comme nts LIPASE (test code = 7640513500) 40 U/L 0-220 Lab Interpretation (test cod e = 63618-2) Normal [facility] CenterCT ABDOMEN PELVIS W [id number] 16:27:28EXAM: CT ABDOMEN PELVIS W CONTRAST HISTORY: [...] hypodensity isseen within the right gluteal soft tissue.[facility] CBC WITH [id number] 16:14:18* Test Item Value Reference Range Interpretation Comme nts WBC (test code = 6690-2) 6.32 See_Comment [Automated [employer]] The system which generated this result transmitted [...] 34.1 g/dL 31.6-35.1 RDW-SD (test code = 90810-9) 42.0 fL 39.0-49.9 RDW-CV (test code = 788-0) 13.0 % 12.0-15.5 PLT (test code = 777-3) 369 See_Comment H [Automated messa ge] The system which generated this result transmitted reference range: 166 - 358 10*3/?L. The reference range was not used to interpret this result as normal/abnormal. MPV (test code = 06731-4) 9.9 fL 9.5-12.9 NRBC/100 WBC (test code = 6449583666) 0.0 See_Comment [Automated [employer] ssage] The system which generated this result transmitted reference range: 0.0 - 10.0 /100 WBCs. The reference range was not used to interpret this result as normal/abnormal. NRBC x10^3 (test code = 5386842410) See_Comment [Automated messa ge] The system which generated this result transmitted reference range: 10*3/?L. The reference range was not used to interpret this result as normal/abnormal. GRAN MAT (NEUT) % (test code = 770-8) 64.8 % IMM GRAN % (test code = 2012824949) 0.50 % LYMPH % (test code = 736-9) 25.3 % MONO % (test code = 5905-5) 4.1 % EOS % (test code = 713-8) 4.7 % BASO % (test code = 706-2) 0.6 % GRAN MAT x10^3(ANC) (test code = 8703967350) 4.09 10*3/uL 1.88-7.09 IMM GRAN x10^3 (test code = 8281987160) 0.03 10*3/uL 0.00-0.06 LYMPH x10^3 (test code = 731-0) 1.60 10*3/uL 1.32-3.29 MONO x10^3 (test code = 742-7) 0.26 10*3/uL 0.33-0.92 L EOS x10^3 (test code = 711-2) 0.30 10*3/uL 0.03-0.39 BASO x10^3 (test code = 704-7) 0.04 10*3/uL 0.01-0.07 Lab Interpretation (test code = 96496-5) [facility]normal [facility]PO[facility] [id number] 15:31:00* Test Item Value Reference Range Interpretation Comme nts POCT PREG (test code = 1605) Negative On board controls acceptable with C Line (test code = 3574) Yes POCT PREG LOT # (test code = 3575) [id number] POCT PREG TEST DATE ( test code = 3576) 2024-07-21 Lab Interpretation (test cod e = 26091-1) Normal [facility] WITH [id number] 04:28:47* Test Item Value Reference Range Interpretation Comme nts WBC (test code = 6690-2) 5.45 See_Comment [Automated [employer]] The system which generated this result transmitted reference range: 4.30 - 11.10 10*3/?L. The reference range was not used to interpret this result as normal/abnormal. RBC (test code = 789-8) 4.59 See_Comment [Automated [employer]] The system which generated this result [...] 34.0 g/dL 31.6-35.1 RDW-SD (test code = 36362-2) 40.3 fL 39.0-49.9 RDW-CV (test code = 788-0) 13.1 % 12.0-15.5 PLT (test code = 777-3) 307 See_Comment [Automated messa ge] The system which generated this result transmitted reference range: 166 - 358 10*3/?L. The reference range was not used to interpret this result as normal/abnormal. MPV (test code = 14886-1) 11.0 fL 9.5-12.9 NRBC/100 WBC (test code = 2784700512) 0.0 See_Comment [Automated [employer]] The system which generated this result transmitted reference range: 0.0 - 10.0 /100 WBCs. The reference range was not used to interpret this result as normal/abnormal. NRBC x10^3 (test code = 1964405114) See_Comment [Automated [employer]] The system which generated this result transmitted reference range: 10*3/?L. The reference range was not used to interpret this result as normal/abnormal. GRAN MAT (NEUT) % (test code = 770-8) 52.0 % IMM GRAN % (test code = 9683119256) 0.20 % LYMPH % (test code = 736-9) 38.0 % MONO % (test code = 5905-5) 4.6 % EOS % (test code = 713-8) 4.6 % BASO % (test code = 706-2) 0.6 % GRAN MAT x10^3(ANC) (test code = 4791757300) 2.84 10*3/uL 1.88-7.09 IMM GRAN x10^3 (test code = 7879677306) 0.00-0.06 LYMPH x10^3 (test code = 731-0) 2.07 10*3/uL 1.32-3.29 MONO x10^3 (test code = 742-7) 0.25 10*3/uL 0.33-0.92 L EOS x10^3 (test code = 711-2) 0.25 10*3/uL 0.03-0.39 BASO x10^3 (test code = 704-7) 0.03 10*3/uL 0.01-0.07 Lab Interpretation (test code = 34387-6) Abnormal [facility]. METABOLIC PANEL (10624)2023-01-12 04:12:43* Test Item Value Reference Range Interpretation Comme nts NA (test code = 9430012022) 137 mmol/L 135-145 K (test code = 2458548844) 3.4 mmol/L 3.5-5.0 L CL (test code = 2811636284) 104 mmol/L 98-108 CO2 TOTAL (test code = 6811335200) 24 mmol/L 23-31 AGAP (test code = 3130049491) 9 2-16 BUN (test code = 9203971355) 2 mg/dL 7-23 L GLUCOSE (test code = 9865184694) 92 mg/dL 70-110 CREATININE (test code = 0012643461) 0.80 mg/dL 0.50-1.04 TOTAL BILI (test code = 9572266894) 0.4 mg/dL 0.1-1.1 CALCIUM (test code = 6995861228) 8.4 mg/dL 8.6-10.6 L T PROTEIN (test code = 5728746221) 6.3 g/dL 6.3-8.2 ALBUMIN (test code = 3288888182) 3.7 g/dL 3.5-5.0 ALK PHOS (test code = 9410397050) 87 U/L 34-122 ALTv (test code = 1742-6) 27 U/L 5-35 AST(SGOT) (test code = 4685262597) 33 U/L 13-40 eGFR (test code = 4766803851) 86.0 mL/min/1.73m2 WESLEY (test code = WESLEY) [...] imaging tests). Lab Interpretation (test code = 02208-1) Abnormal [facility]. METABOLIC PANEL (65307)2023-01-12 04:12:43* Test Item Value Reference Range Interpretation Comme nts NA (test code = 8448512586) 137 mmol/L 135-145 K (test code = 0904582177) 3.4 mmol/L 3.5-5.0 L CL (test code = 6464093750) 104 mmol/L 98-108 CO2 TOTAL (test code = 9153206671) 24 mmol/L 23-31 AGAP (test code = 9033313533) 9 2-16 BUN (test code = 0590349154) 2 mg/dL 7-23 L GLUCOSE (test code = 4892719248) 92 mg/dL 70-110 CREATININE (test code = 9003781191) 0.80 mg/dL 0.50-1.04 TOTAL BILI (test code = 5066240109) 0.4 mg/dL 0.1-1.1 CALCIUM (test code = 4567610733) 8.4 mg/dL 8.6-10.6 L T PROTEIN (test code = 2935522119) 6.3 g/dL 6.3-8.2 ALBUMIN (test code = 6013630478) 3.7 g/dL 3.5-5.0 ALK PHOS (test code = 6143836473) 87 U/L 34-122 ALTv (test code = 1742-6) 27 U/L 5-35 AST(SGOT) (test code = 0135671228) 33 U/L 13-40 eGFR (test code = 3048384589) 86.0 mL/min/1.73m2 WESLEY (test code = WESLEY) [...] imaging tests). Lab Interpretation (test code = 42615-1) Abnormal [facility] (QUANTITAT[facility])2023-01-12 04:07:04 BETA HCG<2.39Non- female and male patients: <5 mIU/mL01/11/2023 11:07 PM [facility] Gestational Age ?Range (mIU/mL) 1-10 ?Weeks ?14-32913279-43 Weeks ?72428-22003414-41 Weeks ?5746-38356179-05 Weeks ?1531-352337 Biotin has been reported to cause a negative bias, interpret results relative to patient's use of biotin. Gestational Age ?Range (mIU/mL) 1-10 ?Weeks ?02-61282145-95 Weeks ?79636-14417220-90 Weeks ?7897-64579144-43 Weeks?1531-140390 Biotin has been reported to cause a negative bias, interpret results relative to patient's use of biotin. Gestational Age ?Range (mIU/mL) 1-10 ?Weeks ?99-88780410-79 Weeks ?51580-90816097-22 Weeks ?4227-54745660-93 Weeks ?1531-153293 Biotin has been reported to cause a negative bias, interpretresults relative to patient's use of biotin.[facility] (QUANTITATIVE)2023-01-12 04:07:04BETA HCG<2.39Non- female and male patients: <5 mIU/mL01/11/2023 11:07 PM [facility] Gestational Age ?Range (mIU/mL) 1-10 ?Weeks ?05-52745931-61 Weeks ?30526-74381760-53 Weeks ?7455-98720798-93 Weeks ?1531-106625 Biotin has been reported to cause a negative bias, interpret results relative topatient's use of biotin. Gestational Age ?Range (mIU/mL) 1-10 ?Weeks ?81-17221946-50 Weeks ?55137-00516476-48 Weeks ?0984-74125583-74 Weeks?1531-223245 Biotin has been reported to cause a negative bias, interpret results relative to patient's use of biotin. Gestational Age ?Range (mIU/mL) 1-10 ?Weeks ?60-90036916-40 Weeks ?33399-32788699-06 Weeks ?0985-08837367-19 Weeks ?1531-343289 Biotin has been reported to cause a negative bias, interpretresults relative to patient's use of biotin[facility]* Test Item Value Reference Range Interpretation Comme nts LIPASE (test code = 7632683579) 41 U/L 0-220 Lab Interpretation (test cod e = 66485-2) [facility] 03:22:58* Test Item Value Reference Range Interpretation Comme nts LIPASE (test code = 7385918884) 41 U/L 0-220 Lab Interpretation (test cod e = 89932-9) Normal [facility] [id number] 03:02:00* Test Item Value Reference Range Interpretation Comme nts POCT PREG (test code = 1605) Negative On board controls acceptable with C Line (test code = 3574) Yes POCT PREG LOT # (test code = 3575) [id number] POCT PREG TEST DATE ( test code = 3576) 05/15/2024 Lab Interpretation (test cod e = 59257-6) Normal [facility] [id number] 03:02:00* Test Item Value Reference Range Interpretation Comme nts POCT PREG (test code = 1605) Negative On board controls acceptable with C Line (test code = 3574) Yes POCT PREG LOT # (test code = 3575) [id number] POCT PREG TEST DATE ( test code = 3576) 05/15/2024 Lab Interpretation (test cod e = 08514-0) [facility] [id number] 00:23:34* Test Item Value Reference Range Interpretation Comme nts PREG SERUM (test code = 2411437038) Negative WESLEY (test code = WESLEY) Less than 10 IU/L. ?If low titer or ectopic is suspected, resubmit specimen in 48-72 hours. [facility]. METABOLIC PANEL (06939)2022-07-31 23:58:12* Test Item Value Reference Range Interpretation Comme nts NA (test code = 9804640071) 140 mmol/L 135-145 K (test code = 2558624250) 3.6 mmol/L 3.5-5.0 CL (test code = 9250491053) 106 mmol/L 98-108 CO2 TOTAL (test code = 5128109942) 21 mmol/L 23-31 L AGAP (test code = 4357371159) 13 2-16 BUN (test code = 0601115307) 8 mg/dL 7-23 GLUCOSE (test code = 8582270095) 90 mg/dL 70-110 CREATININE (test code = 6641341054) 0.90 mg/dL 0.50-1.04 TOTAL BILI (test code = 2939044111) 0.5 mg/dL 0.1-1.1 CALCIUM (test code = 7398799756) 9.0 mg/dL 8.6-10.6 T PROTEIN (test code = 5195177315) 7.8 g/dL 6.3-8.2 ALBUMIN (test code = 3710480670) 4.6 g/dL 3.5-5.0 ALK PHOS (test code = 1912402314) 63 U/L 34-122 ALTv (test code = 1742-6) 23 U/L 5-35 AST(SGOT) (test code = 1278983283) 27 U/L 13-40 eGFR (test code = 4294368545) 75.1 mL/min/1.73m2 WESLEY (test code = WESLEY) [...] imaging tests). Lab Interpretation (test code = 71115-8) [facility] 23:57:32* Test Item Value Reference Range Interpretation Comme nts LIPASE (test code = 9616765119) 55 U/L 0-220 Lab Interpretation (test cod e = 74137-0) [facility] WITH [id number] 23:47:31* Test Item Value Reference Range Interpretation Comme nts WBC (test code = 6690-2) 5.64 See_Comment [Automated [employer]] The system which generated this result transmitted reference range: 4.30 - 11.10 10*3/?L. The reference range was not used to interpret this result as normal/abnormal. RBC (test code = 789-8) 4.51 See_Comment [Automated [employer]] The system which generated this result [...] 32.6 g/dL 31.6-35.1 RDW-SD (test code = 58422-9) 42.5 fL 39.0-49.9 RDW-CV (test code = 788-0) 13.0 % 12.0-15.5 PLT (test code = 777-3) 339 See_Comment [Automated [employer]] The system which generated this result transmitted reference range: 166 - 358 10*3/?L. The reference range was not used to interpret this result as normal/abnormal. MPV (test code = 81644-4) 9.4 fL 9.5-12.9 L NRBC/100 WBC (test code = 2698881566) 0.0 See_Comment [Automated [employer]] The system which generated this result transmitted reference range: 0.0 - 10.0 /100 WBCs. The reference range was not used to interpret this result as normal/abnormal. NRBC x10^3 (test code = 4386906937) See_Comment [Automated [employer]] The system which generated this result transmitted reference range: 10*3/?L. The reference range was not used to interpret this result as normal/abnormal. GRAN MAT (NEUT) % (test code = 770-8) 51.2 % IMM GRAN % (test code = 5361077099) 0.20 % LYMPH % (test code = 736-9) 36.5 % MONO % (test code = 5905-5) 5.7 % EOS % (test code = 713-8) 5.9 % BASO % (test code = 706-2) 0.5 % GRAN MAT x10^3(ANC) (test code = 6651429619) 2.89 10*3/uL 1.88-7.09 IMM GRAN x10^3 (test code = 1026229780) 0.00-0.06 LYMPH x10^3 (test code = 731-0) 2.06 10*3/uL 1.32-3.29 MONO x10^3 (test code = 742-7) 0.32 10*3/uL 0.33-0.92 L EOS x10^3 (test code = 711-2) 0.33 10*3/uL 0.03-0.39 BASO x10^3 (test code = 704-7) 0.03 10*3/uL 0.01-0.07 Lab Interpretation (test code = 54540-1) [facility] [id number] 16:14:38* Test Item Value Reference Range Interpretation Comme nts POCT Molecular Strep (test c ode = 76437-2) Negative Negative Lab Interpretation (test cod e = 64566-9) [facility] MET[facility]OLIC PANEL (85237)2022-05-05 19:35:37* Test Item Value Reference Range Interpretation Comme nts NA (test code = 0052356028) 139 mmol/L 135-145 K (test code = 4639205582) 4.4 mmol/L 3.5-5.0 CL (test code = 7922627602) 104 mmol/L 98-108 CO2 TOTAL (test code = 2829974296) 22 mmol/L 23-31 L AGAP (test code = 2271027171) 2-16 BUN (test code = 0219313364) 11 mg/dL 7-23 GLUCOSE (test code = 0119012065) 95 mg/dL 70-110 CREATININE (test code = 6562040118) 0.71 mg/dL 0.50-1.04 TOTAL BILI (test code = 7003575772) 0.4 mg/dL 0.1-1.1 CALCIUM (test code = 8732971956) 9.1 mg/dL 8.6-10.6 T PROTEIN (test code = 1499470059) 7.9 g/dL 6.3-8.2 ALBUMIN (test code = 3146803965) 4.7 g/dL 3.5-5.0 ALK PHOS (test code = 1708663236) 114 U/L 34-122 ALTv (test code = 1742-6) 21 U/L 5-35 AST(SGOT) (test code = 5548465821) 21 U/L 13-40 eGFR (test code = 8291361821) mL/min/1.73m2 WESLEY (test code = WESLEY) Association [...] imaging tests). Lab Interpretation (test code = 14274-7) Abnormal [facility] WITH [id number] 19:25:37* Test Item Value Reference Range Interpretation Comme nts WBC (test code = 6690-2) See_Comment [Automated [employer]] The system which generated this result transmitted [...] 32.9 g/dL 31.6-35.1 RDW-SD (test code = 28218-5) 41.7 fL 39.0-49.9 RDW-CV (test code = 788-0) 12.7 % 12.0-15.5 PLT (test code = 777-3) See_Comment H [Automated mess[employer] ge] The system which generated this result transmitted reference range: 166 - 358 10*3/?L. The reference range was not used to interpret this result as normal/abnormal. MPV (test code = 44566-8) 8.8 fL 9.5-12.9 L NRBC/100 WBC (test code = 9306126736) See_Comment [Automated [employer]] The system which generated this result transmitted reference range: 0.0 - 10.0 /100 WBCs. The reference range was not used to interpret this result as normal/abnormal. NRBC x10^3 (test code = 6492434281) See_Comment [Automated mess[employer] ge] The system which generated this result transmitted reference range: 10*3/?L. The reference range was not used to interpret this result as normal/abnormal. GRAN MAT (NEUT) % (test code = 770-8) 56.1 % IMM GRAN % (test code = 5069722706) 0.40 % LYMPH % (test code = 736-9) 29.9 % MONO % (test code = 5905-5) 5.4 % EOS % (test code = 713-8) 7.8 % BASO % (test code = 706-2) 0.4 % GRAN MAT x10^3(ANC) (test code = 3638980555) 3.75 10*3/uL 1.88-7.09 IMM GRAN x10^3 (test code = 3256580754) 0.03 10*3/uL 0.00-0.06 LYMPH x10^3 (test code = 731-0) 2.00 10*3/uL 1.32-3.29 MONO x10^3 (test code = 742-7) 0.36 10*3/uL 0.33-0.92 EOS x10^3 (test code = 711-2) 0.52 10*3/uL 0.03-0.39 H BASO x10^3 (test code = 704-7) 0.03 10*3/uL 0.01-0.07 Lab Interpretation (test code = 05855-9) [facility] [id number] 19:00:00* Test Item Value Reference Range Interpretation Comme nts POCT PREG (test code = 1605) negative On board controls acceptable with C Line (test code = 3574) present POCT PREG LOT # (test code = 3575) [id number] POCT PREG TEST DATE ( test code = 3576) 08-11-2023 Lab Interpretation (test cod e = 44926-2) Normal [facility] WITH [id number] 15:21:11* Test Item Value Reference Range Interpretation Comme nts WBC (test code = 6690-2) See_Comment [Automated [employer]] The system which generated this result transmitted reference range: 4.30 - 11.10 10*3/?L. The reference range was not used to interpret this result as normal/abnormal. RBC (test code = 789-8) See_Comment [Automated [employer]] The system which generated this result [...] 33.0 g/dL 31.6-35.1 RDW-SD (test code = 01101-3) 42.6 fL 39.0-49.9 RDW-CV (test code = 788-0) 12.9 % 12.0-15.5 PLT (test code = 777-3) See_Comment H [Automated messa ge] The system which generated this result transmitted reference range: 166 - 358 10*3/?L. The reference range was not used to interpret this result as normal/abnormal. MPV (test code = 62629-7) 9.1 fL 9.5-12.9 L NRBC/100 WBC (test code = 8950450636) See_Comment [Automated [employer]] The system which generated this result transmitted reference range: 0.0 - 10.0 /100 WBCs. The reference range was not used to interpret this result as normal/abnormal. NRBC x10^3 (test code = 1634419702) See_Comment [[employer]ated [employer]] The system which generated this result transmitted reference range: 10*3/?L. The reference range was not used to interpret this result as normal/abnormal. GRAN MAT (NEUT) % (test code = 770-8) 56.8 % IMM GRAN % (test code = 1726093739) 0.30 % LYMPH % (test code = 736-9) 29.5 % MONO % (test code = 5905-5) 4.3 % EOS % (test code = 713-8) 8.3 % BASO % (test code = 706-2) 0.8 % GRAN MAT x10^3(ANC) (test code = 4920972068) 3.57 10*3/uL 1.88-7.09 IMM GRAN x10^3 (test code = 5922876993) 0.00-0.06 LYMPH x10^3 (test code = 731-0) 1.85 10*3/uL 1.32-3.29 MONO x10^3 (test code = 742-7) 0.27 10*3/uL 0.33-0.92 L EOS x10^3 (test code = 711-2) 0.52 10*3/uL 0.03-0.39 H BASO x10^3 (test code = 704-7) 0.05 10*3/uL 0.01-0.07 Lab Interpretation (test code = 92465-7) Abnormal [facility]. METABOLIC PANEL (72225)2022-04-26 15:12:13* Test Item Value Reference Range Interpretation Comme nts NA (test code = 9267658761) 141 mmol/L 135-145 K (test code = 0772266090) 3.4 mmol/L 3.5-5.0 L CL (test code = 6910444548) 104 mmol/L 98-108 CO2 TOTAL (test code = 6110252051) 23 mmol/L 23-31 AGAP (test code = 2358512756) 2-16 BUN (test code = 2696437567) 9 mg/dL 7-23 GLUCOSE (test code = 3519770145) 101 mg/dL 70-110 CREATININE (test code = 4979346227) 0.82 mg/dL 0.50-1.04 TOTAL BILI (test code = 8248538611) 0.7 mg/dL 0.1-1.1 CALCIUM (test code = 4433614941) 9.3 mg/dL 8.6-10.6 T PROTEIN (test code = 2504312139) 8.1 g/dL 6.3-8.2 ALBUMIN (test code = 9263830749) 4.7 g/dL 3.5-5.0 ALK PHOS (test code = 7182302371) 108 U/L 34-122 ALTv (test code = 1742-6) 24 U/L 5-35 AST(SGOT) (test code = 9460092995) 49 U/L 13-40 H eGFR (test code = 2141588979) mL/min/1.73m2 WESLEY (test code = WESLEY) Association [...] imaging tests). Lab Interpretation (test code = 84902-1) Abnormal [facility] [id number] 14:45:00* Test Item Value Reference Range Interpretation Comme [facility] POCT PREG (test code = 1605) negative On board controls acceptable with C Line (test code = 3574) present POCT PREG LOT # (test code = 3575) [id number] POCT PREG TEST DATE ( test code = 357) 08/11/2023 Lab Interpretation (test cod e = 69591-1) Normal [facility] [id number] 01:22:00* Test Item Value Reference Range Interpretation Comme [facility] POCT PREG (test code = 1605) Negative On board controls acceptable with C Line (test code = 3574) Present POCT PREG LOT # (test code = 3575) [id number] POCT PREG TEST DATE ( test code = 357) 08-11-2023 Lab Interpretation (test cod e = 87590-5) Normal [facility] METABOLIC PANEL (NA, K, CL, CO2, GLUCOSE, BUN, CREATININE, CA)2022-04-07 23:01:10* Test Item Value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 Progressing as expected Je Naik RN [facility] 2024-03-12 22:14:15 Summary: Contrast reaction CONTRAST REACTION [...] Wang MD PGY-5 Diagnostic Radiology DIAGNOSTIC RADIOLOGY [facility] 2024-03-12 21:39:36 Problem: Falls, Risk of Goal: [...] Outcome: Progressing as expected Henna Muller RN [facility] 2024-03-12 05:17:24 Problem: Falls, Risk of Goal: [...] airway Outcome: Not progressing as expected Kitty Alavrado RN [facility] 2024-03-11 19:43:41 Problem: Falls, Risk of Goal: [...] progressing as expected T Charles Canales RN [facility] 2024-03-11 19:25:25 A patient w/ normal wob. Omi Christina RT [facility] 2024-03-11 01:49:00 Problem: Falls, Risk of Goal: [...] decreased cardiac output Outcome: Progressing as expected [facility] 2024-03-10 22:29:56 Patient admitted to [place] [address]. Patient agrees to admission, discussed plan of care with patient and family. Patient is awake, alert, oriented, resp reg unlabored, color appropriate for race, PIV intact. No adverse reaction to medications administered while in ED. Belongings with patient to unit. [facility] 2024-03-10 22:29:18 Transportation at bedside. [facility] 2024-03-10 22:02:00 Report given. Patient to be admitted to [place] [address]. Patient verbalized understanding of plan of care. [facility] 2024-03-10 21:20:38 Attempted to call report. RN unavailable, will call back. [facility] 2024-03-10 21:00:00 Report received from ROSEY Sanchez. POC discussed. [facility] 2024-03-10 20:55:38 Attempted to call report, RN States she will call back. T Taj Suero RN [facility] 2024-03-10 19:17:[address] Jain who states he will be down soon to evaluate patient. [facility] 2024-03-10 18:19:39 Pt refuses zofran. States understanding of pending admission eval. [facility] 2024-03-10 18:00:01 Pt still violently vomiting. Provider notified to request admission of patient. [facility] 2024-03-10 17:21:09 Pt given phenergan and morhpine at this time. [facility] 2024-03-10 16:28:50 Resident states we will attempt to manage pain and nausea before admitting. Pt staets understanding of POC awaiting phenergan to give patient morphine. [facility] 2024-03-10 15:56:04 Phenergan requested form pharmacy. Resident states that pt will be admited to medicine. Pt updated on plan. Hunched over vomitting in bed at this time. VSS T [facility] 2024-03-10 15:47:36 Notified resident and MD of CT findings. Again, requested pain mneds and plan for dispo T [facility] 2024-03-10 15:00:00 Pt still in pain, requested meds from provider. T [facility] 2024-03-10 14:44:[address] Has relief of headache. Still has abd pain. Provider notified. T [facility] 2024-03-10 14:20:[address] [facility] 2024-03-10 14:12:40 Pt given benadryl as ordered. Appears to be in NAD. States understanding of pending CT at this time. [facility] 2024-03-10 13:31:15 Pt still vomitting in pain, provider yet again notified. [facility] 2024-03-10 12:10:00 Pt reports nausea and vomiting despite zofran. Will request form MD T [facility] 2024-03-10 11:45:00 IV noted to be infiltrated. Initiated new USGPIV. Provider attempting to obtain outside hospital records of CT scan. Will determine need for additional imaging during this visit. Pt medicated per JUL. [facility] 2024-03-10 10:00:00 Natanael Dyson is a 29 [...] pain, respirations even and unlabored, vss. T [facility] 2024-03-10 09:41:39 Natanael Dyson is a 29 [...] dry, appropriate for color Santa Rapp RN [facility] 2024-03-10 09:36:00 [facility] Emergency Department Note Patient Name: Natanael [...] She was seen at a hospital in [place]. Patient a CT scan of her abdomen at this time in [place]. She has had a cholecystectomy. She denies [...] Procedures CBC WITH DIFF COMP. METABOLIC PANEL (66822) URINALYSIS LIPASE Orders Placed This Encounter Medications ondansetron (ZOFRAN (PF)) injection 4 mg First Provider Eval: ED Events Date/Time Event User Comments 03/10/24 09 Medical Screening Begins JEFFERY BENAVIDES -- 03/10/24 [...] likely contamination [CD] 1127 COMP. METABOLIC PANEL (68712)(!) No significant abnormalities [CD] 1127 PREG SERUM: [...] and was seen at a hospital in [place]. Denies having a head CT or any [...] She was seen at a hospital in [place]. Patient a CT scan of her abdomen at this time in [place]. She has had a cholecystectomy. She denies [...] 03/10/24 1638 Jeffery Benavides, 03/10/24 1713 Jeffery Benavides, DO 03/10/24 1715 [...] disposition. Note reviewed Dr. Alfredo Parra MD, [facility] 2024-03-10 09:36:00 1100 29-year-old female comes [...] and was seen at a hospital in [place]. Denies having a head CT or any [...] Decision regarding hospitalization. Alfredo Parra MD 03/10/241810 [facility] 2024-03-10 09:36:00 AdmissionCare Guideline: Vomiting - OBS, [...] care AdmissionCare documentation entered by: Alfredo Parra [facility], 28th edition, Copyright ? 2023 [facility] HospitalSpaciety ([employer]) [facility] All Rights Reserved. [id number]:09:01-05:00 [facility] 2024-03-06 08:39:57 TRANSITIONAL CARE MANAGEMENT ASSESSMENT 03/06/2024 Natanael Dyson [id number] Natanael Dyson is a 29 year old /White female was admitted on 03/04/[address] She was discharged on 03/05/24 with discharge disposition of HR- Routine Discharge. Admitting Physician: Jose Mandujano Discharge Diagnosis: Nausea and vomiting, unspecified vomiting type [R11.2] Pt. Voices having stomach issues and will f/u with [facility] GI but not pcp at this time. No linked episodes TCM Etl-augb-mi-face outreach documentation: Discharge Assessment Chart Assessed: 03/06/24 [...] external pcp. GI f/u pending with [facility].) Do you have any questions about your [...] time?: No Future Appointments: Marlys Odell LVN [facility] 2024-03-05 15:53:59 Problem: Pain Goal: Control of [...] Outcome: Adequate for discharge Judi Juarez RN [facility] 2024-03-04 22:01:35 Problem: Pain Goal: Control of [...] signs and symptoms Outcome: Progressing as expected [facility] 2024-03-04 19:44:59 Pt transferred to receiving unit via transport stretcher. At time of departure, pt ao4 resp e/u on RA, no distress noted or declared. No ailments declared. Pt left unit w all belongings and papers w/o incident. Discharge complete T Rita Atkins RN [facility] 2024-03-04 19:13:19 Pt requesting IV pain meds, RN updated pt on ordered intervals for morphine [facility] 2024-03-04 18:12:35 Full report called to receiving nurse including c/c, dx, POC, interventions, IV, VS, pt physical mental and resp status. All questions answered. Transport requested T [facility] 2024-03-04 17:44:07 Pt ambulatory to and from rr indept. Pt back in bed w/o incident. T [facility] 2024-03-04 15:37:41 Telephone note was placed by Dr. Vance yesterday. IM-GASTROENTEROLOGY STAFF [facility] 2024-03-04 15:10:00 Pt requesting IV pain medicine as the norco hasn't worked T [facility] 2024-03-04 12:39:35 [place] team paged T [facility] 2024-03-04 12:32:04 Pt back to bed w/o incident [facility] 2024-03-04 12:31:47 Pt ambulatory to rr w standby assistance from RN. T [facility] 2024-03-04 12:18:00 Upon rounding, RN introduced self [...] assess and tx per plan of care [facility] 2024-03-04 11:15:00 Patient resting in stretcher quietly, no S/S of distress noted, no active vomiting. AAOx4, GCS 15, respirations are even and unlabored, skin warm/dry, color appropriate for ethnicity. Siderails up x2, bed low and locked, call light in reach, will continue to monitor. T Noe Meza RN [facility] 2024-03-04 10:10:00 MD notified pt vomited, failed PO challenge. [facility] Brigida Garcia RN [facility] 2024-03-04 08:05:08 Attempted 20g piv unsucessful x 1 Awaiting staff assistance [facility] 2024-03-04 07:30:00 Patient is alert and oriented x4, respirations are even and unlabored, PPPX4, skin warm and dry, pt complains of sharp abd pain, MM dry. [facility] 2024-03-04 07:24:15 Report given to Martin CURRIE. Patient name and confirmed. Patient chief complaint, current status and assessment findings, allergies, orders, infusion verify, and MAR reviewed. Patient plan of care discussed. Patient/family updated on plan of care and verbalizes understanding at this time. T Meena Crowder RN [facility] 2024-03-04 07:17:20 ERT notified this RN of unsuccessful PIV attempts. This RN at bedside for USG PIV initiation. PIV successfully initiated, but patient immediately requesting PIV be removed due to pain. Additional RN to be notified for additional attempt. [facility] 2024-03-04 07:10:10 Resident at bedside. [facility] 2024-03-04 07:00:00 Natanael Dyson is a 29 year old female presents to ED c/o abdominal pain x couple of weeks. Patient reports was recently seen and admitted, but had to leave early due to child being ill. Patient reports continued N/V, abdominal pain, and diarrhea w/o relief by OTC medication. SAND TECHNICIAN pepcid, pepto bismol, and imodium. Patient reports 8/10 pain. Patient denies PMH. Patient resting in ED stretcher. Patient Aox4, NAD noted, VSS, RR e/u. See general and GI focused assessment. [facility] 2024-03-04 06:47:36 Patient to room for further evaluation in , NAD noted. [facility] 2024-03-04 06:41:49 Natanael Dyson is a 29 [...] room for further eval. Hany Fritz RN [facility] 2024-03-04 06:39:16 Called for patient, no answer, registration reports patient went to , will call again. [facility] 2024-03-04 06:37:00 [facility] Emergency Department Note Patient Name: Natanael Dyson Date of : 1995 29 year old female Treatment Room: 120/120 Primary Care Physician: PATIENT DOES NOT HAVE A PCP Patient Escorted by: Self [9] Mode of Arrival: Personal means [1] EMS Treatment Prior to ED Arrival: SAND TECHNICIAN treatment: Other (comment) Travel and Exposure Screening: [...] SPERM <1 <=1 HPF COMP. METABOLIC PANEL (03479) - Abnormal NA 138 135 - 145 [...] DIFF URINALYSIS POCT TEST COMP. METABOLIC PANEL (12036) LIPASE Orders Placed This Encounter Medications ondansetron [...] 06 Medical Screening Begins ALEXANDER RICHARD -- [birth year] First Provider Evaluation ALEXANDER RICHARD E -- [...] Observation Condition -- Comment Treatment Team: KORI [[id number]] Discharge Medications: Patient's Medications START taking these [...] vomiting Plan 1. Readmit to medicine team [facility] 2024-03-03 11:17:18 Noted path with H pylori [...] Vance MD PGY 5 Gastroenterology and Hepatology [facility] 2024-02-28 09:07:48 TRANSITIONAL CARE MANAGEMENT ASSESSMENT 02/28/2024 Natanael Dyson [id number] Natanael Dyson is a 29 year old /White female was admitted on 02/22/[address] She was discharged on 02/27/24 with discharge disposition of HR- Routine Discharge. Admitting Physician: Hany Lee Discharge Diagnosis: FINAL DIAGNOSIS: (the reason, after study, for admitting the patient to the hospital) Esophagitis Gastritis Linked Episodes Type: Episode: Status: Noted: Resolved: Last update: Updated by: TRANSITION OF CARE TCM Active 02/27/2024 02/28/2024 9:07 AM Tc Renteria RN Comments: TCM Bvw-vzqu-jn-face outreach documentation: Discharge Assessment Chart Assessed: 02/28/24 [...] with the names or descriptions of any hquy-uxt-chubnla or supplements you are currently taking?: Yes [...] Phone 03/10/2024 10:00 AM Ca Martinez FNP [facility] [phone] I Renteria RN [facility] 2024-02-27 15:43:07 Addendum created 02/27/24 1543 by Blanca Leavitt CRNA Intraprocedure Meds edited NACR-NURSE CAR PARK ATTENDANT,CERTIFIED REGISTERED NURSE CAR PARK ATTENDANT [facility] 2024-02-27 12:01:14 Patient: Natanael Dyson Procedure Summary Date: 02/27/24 Room / Location: [id number] / ENDOSCOPY (CS) OR LOCATION Anesthesia Start: [...] status: acceptable Hydration status: acceptable AN-ANESTHESIOLOGY ANESTHESIOLOGIST [facility] 2024-02-27 07:19:18 Problem: Pain Goal: Control of [...] Outcome: Progressing as expected Sheyla Sharma RN [facility] 2024-02-27 06:29:41 Name/ MRN / Age / Gender: Natanael Dyson, [id number] 29 year old female BMI: Estimated body [...] (physical exam) Anesthesia Preop: Chart Review and Vhlp-jo-Wupp NPO Status Verified Clear Liquids: > 2 [...] Endocrine/other ROS Negative per Chart Review Other PSYCHOLOGIST SOCIAL PSYCHOLOGIST SOCIAL ROS Negative per Chart Review Comments: H/o breast cancer Pediatric Pediatric N/A N/A Preoperative Medication Instructions Continue taking all prescribed medications except: LUIS inhibitors, ARBs, diuretics, all oral diabetes medications Anticoagulant Therapy: Defer to surgeons Insulin: Take 1/2 dose the night prior to surgery. Hold on DOS. Phentermine: Alert [facility] anesthesiologist SGLT2 Inhibitors: "gliflozins" to be [...] plan discussed with: patient or sales representative jewelry Post-Operative Analgesia: routine analgesia & antiemetics Recovery Plan: PACU Additional comments: Pt seen and examined. Chart/ interval hx/ lab data reviewed. NPO status confirmed. Anesthetic plan d/w pt and she understands/ wishes to proceed. Consent obtained. [facility] 2024-02-27 06:15:00 Rec'd report from sheyla CURRIE. Pt AAO, RA, no ISO,denies overnight vomiting, rec'd enema about 0500 and have since been having BMs per RN. Bobbi Du RN [facility] 2024-02-26 13:07:55 Problem: Falls, Risk of Goal: [...] Not progressing as expected Tete Louis RN [facility] 2024-02-25 23:57:35 Problem: Pain Goal: Control of [...] Outcome: Progressing as expected Cheryl Vásquez RN [facility] 2024-02-25 07:09:28 Problem: Pain Goal: Control of [...] Adequate nutritional intake Outcome: Progressing as expected [facility] 2024-02-24 09:16:21 Uploaded to OnBase: [facility] ED Labs &CT Report Bobbi Jackson lll, PCP 02/24/2024 9:17 am T Bobbi Saini [facility] 2024-02-24 03:16:43 Problem: Pain Goal: Control of pain at or below patient's documented comfort goal Outcome: Progressing as expected Problem: Falls, Risk of Goal: Absence of falls Outcome: Progressing as expected Problem: Infection Risk Goal: Absence of infection Outcome: Progressing as expected Problem: Discharge Planning Goal: Adequate for discharge Outcome: Progressing as expected [facility] 2024-02-23 19:02:34 Problem: Pain Goal: Control of [...] nutritional intake Outcome: Progressing as expected T Sheldno Montague RN [facility] 2024-02-22 22:09:02 Problem: Pain Goal: Control of [...] Adequate nutritional intake Outcome: Progressing as expected [facility] 2024-02-22 19:25:41 Pt to [place] [id number] at this time via [facility] transport in stretcher. Patient in possession of all belongings. VSS, Respirations even and unlabored, AAOx4, NAD noted. T Dennise Kirkland RN [facility] 2024-02-22 19:09:18 Patient requesting medication for anxiety. Team paged at this time. [facility] 2024-02-22 19:00:00 Report received from Brent CURRIE. Previous treatment and plan of care discussed. Patient resting in bed. Bed locked and in lowest position. Call light within reach. RR even and unlabored. VSS. A&Ox4. NAD noted. Awaiting transport upstairs. [facility] 2024-02-22 18:32:24 Report given to RN. Patient to be admitted to [facility]. Patient verbalized understanding of plan of care. Patient A&O x4. VSS. NAD noted. Resp even and non labored. Skin warm and dry. IV patent. Belongings to be sent with patient. Awaiting transportation. [facility] Brent Solis RN [facility] 2024-02-22 17:45:00 Pt ambulatory to and from restroom with steady gait in NAD [facility] 2024-02-22 15:45:00 Pt laying in bed meds given per MAR waiting on bed place ment, pt A&Ox4 resp even and unlabored gcs 15 [facility] 2024-02-22 13:45:00 Pt resting comfortably, skin normal warm and dry, resp even and unlabored. VSS. Bed in lowest, locked position, side rails up. Call light within reach. Awaiting results. [facility] 2024-02-22 11:45:00 Pt sitting in bed A&Ox4 , skin normal warm and dry, resp even and unlabored. VSS. Bed in lowest, locked position, side rails up. Call light within reach. Awaiting results. [facility] 2024-02-22 09:45:00 Natanael Dyson is a 29 [...] will continue to monitor. Awaiting further orders. [facility] 2024-02-22 09:31:00 Natanael Dyson is a 29 year old female c/o brayan umbical pain x 1 week. Pain worsening x 4 days. Seen at hospital in [place]. Reports no relief with zofran. Also reports vomiting/diarrhea. Reports blood in stool and emesis. No fever. Denies urinary. Denies . Alla Richardson RN [facility] 2024-02-22 09:27:00 [facility] Emergency Department Note Patient Name: Natanael Dyson Date of : 1995 29 year old female Treatment Room: Room/bed info not found Primary Care Physician: PATIENT DOES NOT HAVE A PCP Patient Escorted by: Self [9] Mode of Arrival: Personal means [1] EMS Treatment Prior to ED Arrival: SAND TECHNICIAN treatment: None Travel and Exposure Screening: Symptoms [...] days ago she presented for evaluation in [place]; she was told that she was dehydrated and would have to see a music engraver; however, she says that she cannot afford this. History provided by: Patient pairer odds used: No Past Medical History/Immunizations: Past Medical [...] 2 VW Final Result ORDERING PROVIDER: COLIN WARREN HISTORY: Hematemesis TECHNIQUE: Frontal and lateral views [...] 0.01 - 0.07 10*3/uL COMP. METABOLIC PANEL (07061) - Abnormal NA 137 135 - 145 [...] LIMITED CBC WITH DIFF COMP. METABOLIC PANEL (38409) LIPASE URINALYSIS TROPONIN I TEST, SERUM O2 [...] Observation Condition -- Comment Treatment Team: KORI [[id number]] Discharge Medications: Patient's Medications START taking these medications No medications on file CONTINUE taking these medications which have NOT CHANGED ALBUTEROL 90 MCG/ACTUATION INHALER Inhale 2 Puffs every 6 (six) hours as needed for Wheezing or Shortness of Breath. BACLOFEN 10 MG TABLET Take 1 tablet by mouth every 6 (six) hours as needed. [id number]-[id number]-JQCH (FIORICET) 50-300-40 MG PER CAPSULE Take 1 [...] by: Adriana Piedra MD Internal Medicine PGY-3 [place] Team Adriana Piedra MD 02/22/24 1425 Associated [...] to Internal Medicine Janett Warren INTERNAL MEDICINE [facility] 2023-08-27 16:08:07 TRANSITIONAL CARE MANAGEMENT ASSESSMENT 08/27/2023 Natanael Dyson [id number] Natanael Dyson is a 28 year old /White female was admitted on 08/23/[address] She was discharged on 08/24/23 with discharge disposition of HR- Routine Discharge. Admitting Physician: Roldan Walker Discharge Diagnosis: Cerebrovascular accident (CVA), unspecified mechanism [ Pt. Voiced her thoughts about [facility], not pleased with care provided. Plans to not f/u with [facility]. Pt. Inquired about results MY chart [...] for further assistance. No linked episodes TCM Gvl-vlzu-rn-face outreach documentation: Discharge Assessment Chart Assessed: 08/27/23 [...] 9:30 AM ADC MOBILE MRI 1 (1.5T) [facility], [facility] [phone] Marlys Odell LVN [facility] 2023-08-26 13:35:01 TRANSITIONAL CARE MANAGEMENT ASSESSMENT 08/26/2023 Natanael Dyson [id number] Natanael Dyson is a 28 year old /White female was admitted on 08/23/23 to [facility], [facility]. She was discharged on 08/24/23 with discharge disposition of HR- Routine Discharge. Admitting Physician: Roldan Walker Discharge Diagnosis: Cerebrovascular accident (CVA), unspecified mechanism [I63.9] No contact. No linked episodes TCM Zht-ichx-ex-face outreach documentation: Future Appointments: [facility] 2023-05-19 12:16:00 Pt given printed and verbal [...] steady gait, in no apparent distress. NNE [facility] 2023-05-19 08:50:00 Patient came in with complaints of epigastric pain that radiates to her left shoulder associated with nausea and vomiting since a couple of weeks now. Patient states that she was worked up in [place] ER 2 weeks ago and found nothing wrong, just referred to a GI doctor but she hasn't seen one because she has no insurance. NNE Ruiz RN [facility] 2023-01-16 10:56:45 TRANSITIONAL CARE MANAGEMENT ASSESSMENT 01/16/2023 Natanael Dyson [id number] Natanael Dyson is a 27 year old /White female was admitted on 01/11/[address] She was discharged on 01/15/23 with discharge disposition of HR- Routine Discharge. Admitting Physician: Kun Steele Discharge Diagnosis: Postprocedural intraabdominal abscess [T81.43XA] Pt. Verbalized understanding discharge instructions. Plans to f/u with pcp. Linked Episodes Type: Episode: Status: Noted: Resolved: Last update: Updated by: TRANSITION OF CARE tcm Active 01/16/2023 01/16/2023 10:56 AM Marlys Odell LVN Comments: TCM Vgw-fhai-jj-face outreach documentation: Discharge Assessment Chart Assessed: 01/16/23 [...] with the names or descriptions of any liqh-brp-tczktze or supplements you are currently taking?: Yes [...] time?: No Future Appointments: Marlys Odell LVN [facility] 2023-01-15 18:18:34 Patient is cleared for discharge. [...] expected Goal: Reduction in pain sensation 01/15/2023 1818 by Vero Crews RN Outcome: Adequate for discharge 01/15/2023 1818 by Vero Crews RN Outcome: Adequate for discharge 01/15/2023 1310 by Vero Crews RN Outcome: Progressing as expected Problem: Discharge Planning Goal: Adequate for discharge 01/15/2023 1818 by Vero Crews RN Outcome: Adequate for discharge 01/15/2023 1818 by Vero Crews RN Outcome: Adequate for discharge 01/15/2023 1310 by Vero Crews RN Outcome: Progressing as expected Goal: Effective communication 01/15/20231817 by Vero rCews RN Outcome: Adequate for discharge 01/15/2023 181 by Vero Crews RN Outcome: Adequate for discharge 01/15/2023 1310 by Vero Crews RN Outcome: Progressing as expected T [facility] 2023-01-15 15:08:00 Called outpatient pharmacy and spoke to Maggi. Stated pharmacy will bring patient's medications to her room within 45min to an hour. T Vero Crews RN [facility] 2023-01-15 13:11:00 Problem: Infection Risk Goal: Absence of infection Outcome: Progressing as expected Problem: Pain Goal: Control of pain at or below patient's documented comfort goal Outcome: Progressing as expected Goal: Reduction in pain sensation Outcome: Progressing as expected Problem: Discharge Planning Goal: Adequate for discharge Outcome: Progressing as expected Goal: Effective communication Outcome: Progressing as expected T [facility] 2023-01-15 06:25:22 Problem: Infection Risk Goal: Absence of infection Outcome: Progressing as expected Problem: Pain Goal: Control of pain at or below patient's documented comfort goal Outcome: Progressing as expected Goal: Reduction in pain sensation Outcome: Progressing as expected Problem: Discharge Planning Goal: Adequate for discharge Outcome: Progressing as expected Goal: Effective communication Outcome: Progressing as expected Katy Means RN [facility] 2023-01-14 09:27:52 Problem: Infection Risk Goal: Absence of infection Outcome: Progressing as expected Problem: Pain Goal: Control of pain at or below patient's documented comfort goal Outcome: Progressing as expected Goal: Reduction in pain sensation Outcome: Progressing as expected Problem: Discharge Planning Goal: Adequate for discharge Outcome: Progressing as expected Goal: Effective communication Outcome: Progressing as expected T Charles Win RN [facility] 2023-01-13 22:20:47 Notified MD by page due to double dose of Tylenol being given. Per MD Brito no more Tylenol to be given for tonight. [facility] 2023-01-13 21:55:20 Problem: Infection Risk Goal: Absence of infection Outcome: Progressing as expected Problem: Pain Goal: Control of pain at or below patient's documented comfort goal Outcome: Progressing as expected Goal: Reduction in pain sensation Outcome: Progressing as expected Problem: Discharge Planning Goal: Adequate for discharge Outcome: Progressing as expected Goal: Effective communication Outcome: Progressing as expected [facility] 2023-01-13 08:20:43 Problem: Infection Risk Goal: Absence of infection Outcome: Progressing as expected Problem: Pain Goal: Control of pain at or below patient's documented comfort goal Outcome: Progressing as expected Goal: Reduction in pain sensation Outcome: Progressing as expected Problem: Discharge Planning Goal: Adequate for discharge Outcome: Progressing as expected Goal: Effective communication Outcome: Progressing as expected [facility] 2023-01-12 20:10:08 Problem: Infection Risk Goal: Absence of infection Outcome: Progressing as expected Problem: Pain Goal: Control of pain at or below patient's documented comfort goal Outcome: Progressing as expected Goal: Reduction in pain sensation Outcome: Progressing as expected Problem: Discharge Planning Goal: Adequate for discharge Outcome: Progressing as expected Goal: Effective communication Outcome: Progressing as expected [facility] 2023-01-12 09:28:38 Problem: Infection Risk Goal: Absence of infection Outcome: Progressing as expected Problem: Pain Goal: Control of pain at or below patient's documented comfort goal Outcome: Progressing as expected Goal: Reduction in pain sensation Outcome: Progressing as expected Problem: Discharge Planning Goal: Adequate for discharge Outcome: Progressing as expected Goal: Effective communication Outcome: Progressing as expected [facility] 2023-01-12 05:17:00 Problem: Infection Risk Goal: Absence of infection Outcome: Progressing as expected Problem: Pain Goal: Control of pain at or below patient's documented comfort goal Outcome: Progressing as expected Goal: Reduction in pain sensation Outcome: Progressing as expected Problem: Discharge Planning Goal: Adequate for discharge Outcome: Progressing as expected Goal: Effective communication Outcome: Progressing as expected [facility] 2023-01-12 01:43:06 Report to lisy CURRIE on 9C. Pt awaiting transport [facility] Melvin Villegas RN [facility] 2023-01-12 01:10:30 Attempted report, nurse unavailable, left callback number [facility] 2023-01-12 00:24:49 Surgery at bedside [facility] 2023-01-11 23:08:11 made aware of pt increased pain and nausea [facility] 2023-01-11 22:34:[address], warm blanket given [facility] 2023-01-11 22:18:[address] scan [facility] 2023-01-11 21:30:08 Natanael Dyson is a 27 [...] liver. Denies vomiting, denies blood in stool. [facility] 2023-01-11 21:03:38 Natanael Dyson is a 27 year old female here today c/o abdominal pain x 2 days. Pt denies N/V but reports diarrhea. Pt reports "9/10" pain at this time. Pt reports pain travels down right side abdomen. Pt is A&Ox4, NAD Noted. RR even/unlabored. 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 Due to the worsening discomfort patient has, for further evaluation at [facility]. Patient states that during her cholecystectomy [...] when she sits up. Patient has discontinued [place] and anxiety medication due to concern for her liver. She is only used a heating pad for her symptoms with minimal improvement. History provided by: Patient pairer odds used: No Past Medical History/Immunizations: Past Medical [...] 0 - 220 U/L COMP. METABOLIC PANEL (54985) TOTAL BETA HCG ASSAY EXTRA TUBE ORANGE EXTRA TUBE LAV EKG: If EKG completed, see Procedure Note. Orders and Treatments: Orders Placed This Encounter Procedures CT ABDOMEN PELVIS W CONTRAST POCT TEST URINALYSIS LIPASE COMP. METABOLIC PANEL (65630) TOTAL BHCG (QUANTITATIVE) Orders Placed This Encounter [...] mouth every 6 (six) hours as needed. [id number]-[id number]-[id number] (FIORICET) 50-300-40 MG PER CAPSULE Take 1 [...] in the Gallbladder fossa, post-recent cholecystectomy in [place]. General surgery was consulted and admitted the patient for further workup and management. [facility] 2022-12-03 08:57:03 Patient has an appointment 12/12/22. Blayne Silva RN 12/03/2022 8:57 AM Blayne Silva RN [facility]
[2024-12-17] MEDS ORDERED: NA CHLORIDE 0.9% 1,000 ML ONE (07:22)
[2024-12-17 07:34] LABS: Absolute Lymphocytes (CBC) 1.4 K/uL (0.7-4.9); Hematocrit 39.9 % (36.0-45.0); Hemoglobin 13.9 g/dL (12.0-15.0); MCH 30.7 pg (27.0-35.0); MCHC 35.0 g/dL (32.0-36.0); MCV 87.7 fL (80-100); MPV 8.1 fL (7.6-11.3); Nucleated RBC Absolute Count 0.0 (0-0); Nucleated Red Blood Cells % 0.0 % (0-0); RBC Red Blood Cell Count 4.55 M/uL (3.86-4.86); White Blood Count 4.70 thou/uL (4.3-10.9)
[2024-12-17 07:45] LABS: Calcium Oxalate Crystals- Ur Many /HPF (None Seen); Sqamous Epithelial >50 /HPF (None Seen); Urine Culture Reflex Order NOT NEEDED; Urine Microscopic Reflex YN ORDER UMIC
--- NOTE | 2024-12-17 07:56 | RAD REPORT ---
EXAMINATION: CT ABDOMEN AND PELVIS WITHOUT CONTRAST CLINICAL INDICATION: recent UTI;Abd pain TECHNIQUE: CT abdomen and pelvis was performed, without IV contrast, as per department protocol. Axia l, sagittal and coronal reconstructions were obtained. One or more of the following dose reduction techniques were used: Automated exposure control, adjustment of the mA and kV according to the patien t size, and iterative reconstruction. Unless otherwise specified, incidental findings do not require dedicated imaging follow-up. COMPARISON: 12/11/2024 FINDINGS: The lack of intravenous contrast limits the sensitivity of this exam for evaluation of solid visceral organs, vascular structures, and retroperitoneum. LOWER CHEST: The visualized lung bases are clear. LIVER:Normal in size and contour. No focal lesion. Cholecystectomy clips. SPLEEN: Normal size. No focal lesion. PANCREAS: No mass, ductal dilation, or brayan-pancreatic fluid. ADRENALS: Normal; no mass. KIDNEYS AND URETERS: 5 mm calculus suspected in the distal right ureter near the right UVJ resulting in mild right hydronephrosis. No left-sided calculus seen. URINARY BLADDER: Normal contour. GASTROINTESTINAL TRACT: No evidence of bowel obstruction, significant free fluid, free air or abscess . APPENDIX: Normal appendix. LYMPH NODES: No lymphadenopathy. MUSCULOSKELETAL: Mild multilevel spinal degenerative changes. ADDITIONAL FINDINGS: Small fat-containing umbilical hernia. IMPRESSION: Suspected 5 mm stone distal right ureter resulting in mild right hydronephrosis.
[2024-12-17 08:00] LABS: ALT/SGPT 30.0 U/L (13-56); AST/SGOT 31.0 U/L (15-37); Albumin 4.0 g/dL (3.4-5.0); Albumin/Globulin Ratio 1.2 (1.1-1.8); Alkaline Phosphatase 77.0 U/L (45-117); Anion Gap 8.6 mEq/L (5.0-15.0); BUN Blood Urea Nitrogen 8.0 mg/dL (7-18); Globulin 3.3 g/dL (2.3-3.5); Glucose Level 98.0 mg/dL (74-106); Lipase 22.0 U/L (13-75); Potassium 3.6 mEq/L (3.5-5.1)
--- NOTE | 2024-12-17 08:17 | EDPHYS ---
Physician Documentation [facility] Name: Natanael Dyson Age: 29 yrs Sex: Female : 1995 Arrival Date: 12/17/2024 Time: 06:33 Bed 6 Private MD: Brian Greenwood ED Physician Paula Mark HPI: 12/17 07:18 This 29 yrs old Female presents to ER via Ambulatory with complaints of Back Pain, Pain sp3 With Urination, Vaginal Pain. 07:18 29-year-old female with PMH above including kidney stones now presents to the ED with sp3 low back pain and concerns of possible infection. Patient recently finished cefdinir and ciprofloxacin for UTI. Patient denies any other symptoms including fever, chest pain, upper back pain, shortness ofbreath, syncope, near syncope, or any other signs or symptoms on ROS at this time. She denies any [employer] symptoms and denies .. Historical: - Allergies: 06:48 Compazine; br2 06:48 Haldol; br2 06:48 Iodine; br2 06:48 Morphine; br2 06:48 NSAIDS NON STEROIDAL ANTI INFLAMMATORY DRUG; br2 06:48 Reglan; br2 06:48 Toradol; br2 - PMHx: 06:48 Anxiety; breast cancer; breast cancer; depressive disorder; depressive disorder; Kidney br2 stone; nephritis; Ovarian cyst (Unknown); - PSHx: 06:48 section; Cholecystectomy; Cholecystectomy; Ligation of fallopian tube; br2 Tonsillectomy; - Immunization history:: Adult Immunizations not up to date. - Infectious Disease History:: Denies. - Social history:: Smoking status: Patient denies any tobacco usage or history of. Patient/guardian denies using alcohol, street drugs. ROS: 07:19 Constitutional: Negative for fever, chills, and weight loss, Eyes: Negative for injury, sp3 pain, redness, and discharge, ENT: Negative for injury, pain, and discharge, Neck: Negative for injury, pain, and swelling, Cardiovascular: Negative for chest pain, palpitations, and edema, Respiratory: Negative for shortness of breath, cough, wheezing, and pleuritic chest pain, MS/Extremity: Negative for injury and deformity, Skin: Negative for injury, rash, and discoloration, Neuro: Negative for headache, weakness, numbness, tingling, and seizure, Psych: Negative for depression, anxiety, suicide ideation, homicidal ideation, and hallucinations, Allergy/Immunology: Negative for hives, rash, and allergies, Endocrine: Negative for neck swelling, polydipsia, polyuria, polyphagia, and marked weight changes, 07:19 All other systems are negative, Exam: 07:19 Constitutional: This is a well developed, well nourished patient who is awake, alert, sp3 and in no acute distress. Head/Face: Normocephalic, atraumatic. Eyes: Pupils equal round and reactive to light, extra-ocular motions intact. Lids and lashes normal. Conjunctiva and sclera are non-icteric and not injected. Cornea within normal limits. Periorbital areas with no swelling, redness, or edema. Neck: Trachea midline, no thyromegaly or masses palpated, and no cervical lymphadenopathy. Supple, full range of motion without nuchal rigidity, or vertebral point tenderness. No Meningismus. Chest/axilla: Normal chest wall appearance and motion. Nontender with no deformity. No lesions are appreciated. Cardiovascular: Regular rate and rhythm with a normal S1 and S2. No gallops, murmurs, or rubs. Normal PMI, no JVD. No pulse deficits. Respiratory: Lungs have equal breath sounds bilaterally, clear to auscultation and percussion. No rales, rhonchi or wheezes noted. No increased work of breathing, no retractions or nasal flaring. Skin: Warm, dry with normal turgor. Normal color with no rashes, no lesions, and no evidence of cellulitis. MS/ Extremity: Pulses equal, no cyanosis. Neurovascular intact. Full, normal range of motion. Neuro: Awake and alert, GCS 15, oriented to person, place, time, and situation. Cranial nerves II-XII grossly intact. Motor strength 5/5 in all extremities. Sensory grossly intact. Cerebellar exam normal. Normal gait. Psych: Awake, alert, with orientation to person, place and time. Behavior, mood, and affect are within normal limits. 07:19 Abdomen/GI: Diffuse abdominal tenderness without peritoneal signs, rebound or guarding. Heart rate initially 127 but now 110 and coming down on its own., Vital Signs: 06:45 BP 153 / 95; Pulse 127; Resp 18; Temp 97.1; Pulse Ox 100% ; Weight 49.9 kg; Height 5 br2 ft. 1 in. ; Pain 6/10; 08:41 BP 140 / 97; Pulse 106; Resp 18; Pulse Ox 97% on R/A; ar8 08:49 Pain 6/10; ar8 06:45 Body Mass Index 20.78 (49.90 kg, 154.94 cm) br2 06:45 Pain Scale: Adult br2 08:49 Pain Scale: Adult ar8 MDM: 07:08 Medical Screening Exam initiated sp3 07:20 Data reviewed: vital signs, nurses notes, old medical records, lab test result(s), sp3 radiologic studies. ED course: 29-year-old female with PMH above now with UTI symptoms, suprapubic abdominal pain and dysuria symptoms. Differential diagnosis includes UTI/pyelonephritis spectrum, ureterolithiasis/kidney stone spectrum, chronic pain, among others. We will work patient up today with CT scan of the abdomen pelvis noncontrast, general labs and UA. Pharmacological intervention as indicated.. 08:06 ED course: Patient with 5 mm kidney stone with hydronephrosis. Normal creatinine and sp3 normal CBC. Urine likely contaminated but demonstrates no infection.. 08:07 ED course: Heart rate around 100 to 110. Patient refusing normal saline.. sp3 12/17 07:12 Order name: CBC with Diff; Complete Time: 07:39 sp3 12/17 07:12 Order name: CMP; Complete Time: 08:01 sp3 12/17 07:12 Order name: Lipase; Complete Time: 08:01 sp3 12/17 07:12 Order name: Test, Urine; Complete Time: 07:39 sp3 12/17 07:12 Order name: UA Rfx Yunier Cult if indicated; Complete Time: 07:55 sp3 12/17 07:12 Order name: CT Abd/Pelvis - Without Contrast; Complete Time: 08:00 sp3 12/17 07:12 Order name: IV Saline Lock; Complete Time: 07:34 sp3 12/17 07:12 Order name: Labs collected and sent; Complete Time: 07:34 sp3 Administered Medications: 07:30 Not Given (Patient Refused): ns 0.9% 1000 ml IV at 1 bolus Per protocol; to be given as ar8 a bolus over 60 minutes 08:37 Drug: HYDROmorphone IVP 1 mg IVP once Route: IVP; Infused Over: 2 mins; Site: right ar8 forearm; 08:49 Follow up: Pain 6/10 Adult; Response: No adverse reaction; Pain is decreased ar8 08:40 Drug: diphenhydrAMINE IVP 12.5 mg IVP once Route: IVP; Infused Over: 2 mins; Site: ar8 right forearm; 08:49 Follow up: Response: No adverse reaction ar8 Disposition Summary: 12/17/24 08:17 Discharge Ordered Notes: Location: Home sp3 Condition: Stable sp3 Diagnosis - Kidney stone, ureterolithiasis, right flank pain sp3 Followup: sp3 - With: Tristan Moeller MD - When: Upon discharge from the Emergency Department - Reason: Recheck today's complaints Discharge Instructions: - Discharge Summary Sheet sp3 - Kidney Stones sp3 Forms: - Medication Reconciliation Form sp3 - Antibiotic Education sp3 - Prescription Opioid Use sp3 - Patient Portal Instructions sp3 - Leadership Thank You Letter sp3 Prescriptions: - Flomax 0.4 mg Oral capsule - take 1 capsule ORAL route daily; 5 capsule; Refills: 0, Product Selection sp3 Permitted - Tramadol 50 mg Oral Tablet - take 1 tablet ORAL route every 8 hours as needed; 12 tablet; Refills: 0, sp3 Product Selection Permitted Signatures: Dispatcher [employer] EDPaula Urrutia MD MD sp3 Sabine Arguelles RN RN br2 Braeden Adkins RN RN ar8 Corrections: (The following items were deleted from the chart) 07:13 07:13 CBC+H.LAB.BRZ ordered. EDMS EDMS 07:13 07:13 COMPREHENSIVE METABOLIC PANEL+C.LAB.BRZ ordered. EDMS EDMS 07:13 07:13 LIPASE+C.LAB.BRZ ordered. EDMS EDMS 07:13 07:13 Test, Urine+UC.LAB.BRZ ordered. EDMS EDMS 07:13 07:13 UA Rfx Yunier Cult if indicated+U.LAB.BRZ ordered. EDMS EDMS 07:14 07:14 Abdomen Pelvis Wo Con+CT.RAD.BRZ ordered. EDMS EDMS
--- NOTE | 2024-12-17 08:17 | ER ---
Nurse's Notes [facility] Name: Natanael Dyson Age: 29 yrs Sex: Female : 1995 Arrival Date: 12/17/2024 Time: 06:33 Bed 6 Private MD: Brian Greenwood Diagnosis: Kidney stone, ureterolithiasis, right flank pain Presentation: 12/17 06:45 Chief complaint: Patient states: PT WAS DX WITH UTI 2 WKS AGO AND HAS TAKEN ALL br2 ANTIBIOTICS AND STATES SHE IS HURTING MORE. C/O PAIN TO BILATERAL FLANK PAIN AND BURNING WITH URINATION. Coronavirus screen: Client denies travel out of the [place] in the last 14 days. Ebola Screen: Patient denies exposure to infectious person. Initial Sepsis Screen: Does the patient meet any 2 criteria? HR > 90 bpm. Does the patient have a suspected source of infection? No. Patient's initial sepsis screen is negative. Risk Assessment: Do you want to hurt yourself or someone else? Patient reports no desire to harm self or others. Onset of symptoms is unknown. 06:45 Method Of Arrival: Ambulatory br2 06:45 Acuity: THIERNO 3 br2 Triage Assessment: 06:48 General: Appears uncomfortable, Behavior is cooperative, anxious. Pain: Complains of br2 pain in left low back, left mid back, right mid back and right low back Pain currently is 6 out of 10 on a pain scale. Historical: - Allergies: 06:48 Compazine; br2 06:48 Haldol; br2 06:48 Iodine; br2 06:48 Morphine; br2 06:48 NSAIDS NON STEROIDAL ANTI INFLAMMATORY DRUG; br2 06:48 Reglan; br2 06:48 Toradol; br2 - PMHx: 06:48 Anxiety; breast cancer; breast cancer; depressive disorder; depressive disorder; Kidney br2 stone; nephritis; Ovarian cyst (Unknown); - PSHx: 06:48 section; Cholecystectomy; Cholecystectomy; Ligation of fallopian tube; br2 Tonsillectomy; - Immunization history:: Adult Immunizations not up to date. - Infectious Disease History:: Denies. - Social history:: Smoking status: Patient denies any tobacco usage or history of. Patient/guardian denies using alcohol, street drugs. Screenin:54 [facility] ED Fall Risk Assessment (Adult) History of falling in the last 3 months, bm8 including since admission No falls in past 3 months (0 pts) Confusion or Disorientation No (0 pts) Intoxicated or Sedated No (0 pts) Impaired Gait No (0 pts) Mobility Assist Device Used No (0 pt) Altered Elimination No (0 pt) Score/Fall Risk Level 0 - 2 = Low Risk Oriented to surroundings, Maintained a safe environment, Educated pt \T\ family on fall prevention, incl call for assistance when getting out of bed, Assessed \T\ reinforced patient's understanding of fall precautions, Hourly rounding (assess needs \T\ fall precautionary measures) done, Used ambulatory aids as needed (educated on \T\ assisted with), Used gait belt as appropriate. Abuse screen: Denies threats or abuse. Nutritional screening: No deficits noted. Tuberculosis screening: No symptoms or risk factors identified. Vital Signs: 06:45 BP 153 / 95; Pulse 127; Resp 18; Temp 97.1; Pulse Ox 100% ; Weight 49.9 kg; Height 5 br2 ft. 1 in. ; Pain 6/10; 08:41 BP 140 / 97; Pulse 106; Resp 18; Pulse Ox 97% on R/A; ar8 08:49 Pain 6/10; ar8 06:45 Body Mass Index 20.78 (49.90 kg, 154.94 cm) br2 06:45 Pain Scale: Adult br2 08:49 Pain Scale: Adult ar8 ED Course: 06:36 Patient arrived in ED. gm2 06:36 Brian Greenwood MD is Private Physician. gm2 06:48 Triage completed. br2 06:48 Arm band placed on left wrist. br2 06:53 No provider procedures requiring assistance completed. Initial lab(s) drawn, by txsal Urine collected: clean catch specimen, tea colored. Inserted saline lock: 20 gauge in right forearm, using aseptic technique. ,using aseptic technique. ultrasound guided Blood collected. Flushed with 10 mL NS. 06:54 Patient has correct armband on for positive identification. Bed in low position. Call bm8 light in reach. Side rails up X 1. Client placed on continuous cardiac and pulse oximetry monitoring. NIBP monitoring applied. Pulse ox on. NIBP on. Door closed. Noise minimized. Warm blanket given. Verbal reassurance given. Head of bed elevated. 07:08 Paula Mark MD is Attending Physician. sp3 07:20 Viktoriya Jaramillo, RN is Primary Nurse. ph 07:27 CT Abd/Pelvis - Without Contrast In Process Unspecified. EDMS 08:17 Tristan Moeller MD is Referral Physician. sp3 Administered Medications: 07:30 Not Given (Patient Refused): ns 0.9% 1000 ml IV at 1 bolus Per protocol; to be given as ar8 a bolus over 60 minutes 08:37 Drug: HYDROmorphone IVP 1 mg IVP once Route: IVP; Infused Over: 2 mins; Site: right ar8 forearm; 08:49 Follow up: Pain 6/10 Adult; Response: No adverse reaction; Pain is decreased ar8 08:40 Drug: diphenhydrAMINE IVP 12.5 mg IVP once Route: IVP; Infused Over: 2 mins; Site: ar8 right forearm; 08:49 Follow up: Response: No adverse reaction ar8 Medication: 06:54 VIS not applicable for this client. bm8 Outcome: 08:17 Discharge ordered by . sp3 08:50 Discharged to home ambulatory, ar8 08:50 Condition: stable 08:50 Discharge instructions given to patient, Instructed on discharge instructions, follow up and referral plans. medication usage, Demonstrated understanding of instructions, follow-up care, medications, Prescriptions given X 2, 08:50 Patient left the ED. ar8 Signatures: Dispatcher [employer] EDPA Viktoriya Jaramillo, RN RN Paula Mark MD MD sp3 Katarzyna Kay 2 Jamir Florez RN RN bm8 Sabine Arguelles RN RN br2 Braeden Adkins RN RN ar8
[2024-12-17] MEDS ORDERED: DIPHENHYDRAMINE 50 MG/ML VIAL ONE (08:26)
[2024-12-17] MEDS ORDERED: HYDROMORPHONE HCL 1 MG/ML INJ ONE (08:26)
[2024-12-17 09:04] VITALS: TEMP 97.1
[2024-12-17 09:10] VITALS: BP 140/97; O2SAT 97
== END 2024-12-17 08:50 | disposition home or self-care (01) ==
LOC: ER 06:33
DX: N20.2 Calculus of kidney with calculus of ureter (principal); Z87.442 Personal history of urinary calculi
CPT/HCPCS: 85025; 81001; 36415; 81025; 83690; 80053; 74176; 96375; 96374; 99284; J1200; J1171; J7030

== ENCOUNTER 2024-12-17 18:21 | Emergency (ER) | payer OTHER ==
--- OUTSIDE RECORDS SUMMARY | 2024-12-17 18:45 | XMS REPORT | Continuity of Care Document ---
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 Is the patient strict NPO and unable to tolerate oral medication s? Yes [facility] morpHINE injection 2 mg 2023-05 19:00: 00 04-12 18:09 :00 No 2mg 2 mg, Slow IV Push, ONCE, 1 dose, On Sat04/12/24 at 1300, STAT [facility] fentanyl PF (SUBLIMAZE (PF)) injection 50 mcg 2023-05 16:30: 00 04-12 16:26 :00 No 50ug 50 mcg, Slow IV Push, ONCE, 1 dose, On Sat04/12/24 at 1030, Routine [facility] fentanyl PF (SUBLIMAZE (PF)) injection 50 mcg 2023-05 15:45: 00 04-12 15:42 :00 No 50ug 50 mcg, Slow IV Push, ONCE, 1 dose, On Sat04/12/24 at 0945, Routine [facility] diphenhydrA MINE (BENADRYL) injection 25 mg 2023-05 14:18: 10 03-13 16:08 :09 No 25mg 25 mg, Intravenou s, Q6HPRN, Starting on Sat03/13/24 at 0918, Until Sat03/13/24 at 1108, Routine, Pain (scale 7-10) [facility] diazePAM (VALIUM) 10 mg tablet 2023-05 11:08: 09 Yes 10mg Take 1 tablet by mouth in the morning and 1 tablet in the evening. [facility] acetaminoph en (OFIRMEV) IV piggyback 1,000 mg 2023-05 07:15: 00 03-13 07:05 :00 No 1000mg 1,000 mg, IV Piggyback, at 400 mL/hr Administer over 15 Minutes, ONCE, 1 dose, On Sat03/13/24 at 0215, Routine, Is the patient strict NPO and unable to tolerate oral medication s? Yes [facility] methylpredn isolone sod succ (SOLU-MEDRO L) injection 44.375 mg 2023-05 04:15: 00 03-13 05:06 :00 No 1mg/kg 44.375 mg (rounded from 44.5 mg = 1 mg/kg ?44.5 kg), Intravenou s, ONCE, 1 dose, On Sat03/12/24 at 2315, 2 mL [facility] iopamidol (ISOVUE 370-500 mL) injection 80 mL 2023-05 03:16: 00 03-13 03:00 :00 No [id number] 80mL 80 mL, Intravenou s, ONCE, 1 dose, On Sat03/12/24 at 2230, Routine [facility] diphenhydrA MINE (BENADRYL) injection 100 mg 2023-05 03:00: 00 03-13 05:06 :00 No [id number] 100mg 100 mg, Slow IV Push, ONCE, 1 dose, On Sat03/12/24 at 2200, STAT [facility] budesonide (PULMICORT RESPULE) nebulizer solution 1 mg 2023-05 01:00: 00 Yes 1mg 1 mg, Inhalation , BID, First dose on Kathie 03/12/24 at 2000, Until Discontinu ed, Routine [facility] amitriptyli ne 25 mg tablet 2023-05 00:00: 00 Yes [id number] 25mg Take 1 tablet by mouth at bedtime. [facility] budesonide 0.5 mg/2 mL nebulizer solution 2023-05 00:00: 00 06-06 05:59 :00 No [id number] 1mg Inhale 4 mL in the morning and 4 mL in the evening. Do all this for 84 days. [facility] diphenhydrA MINE 25 mg tablet 2023-05 00:00: 00 03-21 05:59 :00 No [id number] 25mg Take 1 tablet by mouth every 6 (six) hours as needed for Allergies for up to 7 days. [facility] methylPREDN ISolone sod succ (SOLU-MEDRO L (PF)) injection 40 mg 2023-05 23:45: 00 03-13 01:24 :00 No 40mg 40 mg, Intravenou s, ONCE, 1 dose, On Kathie 03/12/24 at 1845, 1 mL [facility] diphenhydrA MINE (BENADRYL) injection 50 mg 2023-05 23:45: 00 03-13 01:23 :00 No 50mg 50 mg, Intravenou s, ONCE, 1 dose, On Sat03/12/24 at 1845, Routine [facility] methylPREDN ISolone sod succ (SOLU-MEDRO L (PF)) injection 40 mg 2023-05 20:45: 00 03-12 20:53 :00 No 40mg 40 mg, Intravenou s, ONCE, 1 dose, On Sat03/12/24 at 1545, 1 mL [facility] diphenhydrA MINE (BENADRYL) injection 25 mg 2023-05 20:30: 00 03-12 20:58 :00 No 25mg 25 mg, Intravenou s, ONCE, 1 dose, On Sat03/12/24 at 1545, Routine [facility] diphenhydrA MINE (BENADRYL) injection 25 mg 2023-05 16:30: 00 03-12 16:16 :00 No 25mg 25 mg, Intravenou s, ONCE, 1 dose, On Sat03/12/24 at 1130, Routine [facility] diazePAM (VALIUM) injection 2 mg 2023-05 15:45: 00 03-13 13:38 :00 No 2mg 2 mg, Slow IV Push, BID, First dose on Sat03/12/24 at 1045, Until Discontinu ed, Routine [facility] Potassium Bicarb-Citr ic Acid (EFFER-K) effervescen t tablet 40 mEq 2023-05 03:45: 00 03-12 03:18 :00 No 40meq 40 mEq, Oral, ONCE, 1 dose, On Sat03/11/24 at 2245, Routine [facility] amitriptyli ne (ELAVIL) tablet 25 mg 2023-05 02:00: 00 Yes 25mg 25 mg, Oral, QHS, First dose on Sat03/11/24 at 2100, Until Discontinu ed, Routine [facility] budesonide (PULMICORT RESPULE) nebulizer solution 0.25 mg 2023-05 20:30: 00 03-12 15:40 :27 No .25mg 0.25 mg, Inhalation , BID, First dose (after last modificati on) on Sat03/11/24 at 1530, Until Discontinu ed, Routine [facility] mor[facility]INE [facility] 2 mg 2023-05 18:00: 00 03-11 18:18 :00 No 2mg 2 mg, Slow IV Push, ONCE, 1 dose, On Sat03/11/24 at 1300, Routine [facility] proMETHazin e (PHENERGAN) 12.5 mg in NS 50 mL IV piggyback (CNR) 2023-05 16:08: 36 03-13 06:15 :30 No 12.5mg 12.5 mg, IV Piggyback, at 200 mL/hr Administer over 15 Minutes, Q4HPRN, Starting on Sat03/11/24 at 1108, Until Sat03/13/24 at 0115, [place], Nausea and Vomiting (N/V) [facility] diphenhydrA MINE (BENADRYL) injection 25 mg 2023-05 15:45: 00 03-11 15:14 :00 No 25mg 25 mg, Intravenou s, ONCE, 1 dose, On Sat03/11/24 at 1045, Routine [facility] morphine (2 mg/mL) injection 4 mg 2023-05 13:44: 13 03-11 17:55 :50 No 4mg 4 mg, Slow IV Push, Q4HPRN, Starting on Sat03/11/24 at 0844, Until Sat03/11/24 at 1255, Routine, Pain (scale 7-10) [facility] magnesium sulfate in water 4 gram/50 mL (8 %) IV Piggyback 4 g 2023-05 13:00: 00 03-11 16:09 :00 No 4g 4 g, IV Piggyback, at 25 mL/hr Administer over 120 Minutes, ONCE, 1 dose, On Sat03/11/24 at 0800, Routine [facility] tetracyclin e (ACHROMYCIN ) capsule 500 mg 2023-05 13:00: 00 03-11 16:07 :08 No 500mg 500 mg, Oral, QID, 112 doses, First dose on Sat03/11/24 at 0800, Last dose on Sat04/07/24 at 2000, [place], Reason for Anti-Infec tive: Documented Infection, Documented Infection Site: Abdominal, Duration of Therapy: 14 days [facility] metroNIDAZO LE (FLAGYL) tablet 500 mg 2023-05 13:00: 00 03-11 16:07 :08 No 500mg 500 mg, Oral, QID, First dose on Sat03/11/24 at 0800, Until Discontinu ed, Routine, Reason for Anti-Infec tive: Documented Infection, Documented Infection Site: Abdominal, Duration of Therapy: 14 days [facility] bismuth subsalicyla te (PEPTO BISMOL) chewable tablet 524 mg 2023-05 13:00: 00 03-11 16:07 :08 No 524mg 524 mg, Oral, QID, First dose on Sat03/11/24 at 0800, Until Discontinu ed [facility] lactated ringers IV infusion 1,000 mL 2023-05 08:30: 00 03-11 16:29 :00 No 1000mL at 125 mL/hr, 1,000 mL, IV Infusion, CONTINUOUS , Starting on Sat03/11/24 at 0330, Until Sat03/11/24 at 1129, Routine [facility] trimethoben zamide (TIGAN) injection 100 mg 2023-05 05:12: 20 03-13 16:08 :09 No 100mg 100 mg, Intramuscu lar, Q6HPRN, Starting on Sat03/11/24 at 0012, Until Sat03/13/24 at 1108, Routine, Nausea and Vomiting (N/V), alternate with zofran [facility] ondansetron (ZOFRAN (PF)) injection 4 mg 2023-05 03:42: 41 03-11 16:10 :43 No 4mg 4 mg, Slow IV Push, Q6HPRN, Starting on Sat03/10/24 at 2242, Until Sat03/11/24 at 1110, [place], Nausea and Vomiting (N/V) [facility] pantoprazol e (PROTONIX) injection 40 mg 2023-05 03:30: 00 03-13 16:08 :09 No 40mg 40 mg, Slow IV Push, Q12H, First dose on Sat03/10/24 at 2230, Until Discontinu ed [facility] morpHINE injection 4 mg 2023-05 03:21: 30 03-11 13:44 :25 No 4mg 4 mg, Slow IV Push, Q4HPRN, Starting on Sat03/10/24 at 2221, Until Sat03/11/24 at 0844, Routine, Pain (scale 7-10) [facility] acetaminoph en (TYLENOL) tablet 650 mg 2023-05 03:21: 25 03-13 16:08 :09 No 650mg [facility] morpHINE injection 4 mg 2023-05 02:00: 00 03-11 01:10 :00 No 4mg 4 mg, Slow IV Push, ONCE, 1 dose, On Sat03/10/24 at 2100, STAT [facility] trimethoben zamide (TIGAN) injection 100 mg 2023-05 02:00: 00 03-11 02:05 :00 No 100mg 100 mg, Intramuscu lar, ONCE, 1 dose, On Sat03/10/24 at 2100, Routine [facility] morpHINE injection 4 mg 2023-05 21:30: 00 03-10 22:20 :00 No 4mg 4 mg, Slow IV Push, ONCE, 1 dose, On Sat03/10/24 at 1630, STAT [facility] proMETHazin e (PHENERGAN) 25 mg in NS 50 mL IV piggyback (CNR) 2023-05 21:00: 00 03-10 22:30 :00 No 25mg 25 mg, IV Piggyback, at 200 mL/hr Administer over 15 Minutes, ONCE, 1 dose, On Sat03/10/24 at 1600, [facility] diphenhydrA MINE (BENADRYL) injection 25 mg 2023-05 19:00: 00 03-10 19:12 :00 No 25mg 25 mg, Slow IV Push, ONCE, 1 dose, On Sat03/10/24 at 1400, STAT [facility] ondansetron (ZOFRAN (PF)) injection 4 mg 2023-05 18:30: 00 03-10 18:34 :00 No 4mg 4 mg, Slow IV Push, ONCE, 1 dose, On Sat03/10/24 at 1330, [facility] diphenhydrA MINE:lidoca ine 2% viscous:maa lox 1:1:1 ([facility]) oral suspension 15 mL 2023-05 17:15: 00 03-10 18:34 :00 No 15mL 15 mL, Oral, ONCE, 1 dose, On Sat03/10/24 at 1215, Routine [facility] NaCl 0.9% (NS) bolus infusion 1,500 mL 2023-05 16:30: 00 03-11 00:19 :00 No 1500mL at 999 mL/hr, 1,500 mL, IV Infusion, ONCE, 1 dose, On Sat03/10/24 at 1130, [facility] morpHINE injection 4 mg 2023-05 16:30: 00 03-10 16:33 :00 No 4mg 4 mg, Slow IV Push, ONCE, 1 dose, On Sat03/10/24 at 1130, STAT [facility] ondansetron (ZOFRAN (PF)) injection 4 mg 2023-05 15:30: 00 03-10 15:54 :00 No 4mg 4 mg, Slow IV Push, ONCE, 1 dose, On Sat03/10/24 at 1030, [place] [facility] pantoprazol e (PROTONIX) EC tablet 40 mg 2023-05 01:00: 00 03-05 22:06 :08 No 40mg 40 mg, Oral, BID, First dose on Sat03/05/24 at 2000, Until Discontinu ed, Routine [facility] bismuth subsalicyla te (PEPTO BISMOL) chewable tablet 524 mg 2023-05 17:00: 00 03-05 22:06 :08 No 524mg 524 mg, Oral, QID, 56 doses, First dose on Sat03/05/24 at 1200, Last dose on Sat03/19/24 at 0800, Routine [facility] tetracyclin e (ACHROMYCIN ) capsule 500 mg 2023-05 13:00: 00 03-05 22:06 :08 No 500mg 500 mg, Oral, QID, 56 doses, First dose on Sat03/05/24 at 0800, Last dose on Sat03/18/24 at 2000, [place], Reason for Anti-Infec tive: Documented Infection, Documented Infection Site: Abdominal, Duration of Therapy: 14 days [facility] metroNIDAZO LE (FLAGYL) tablet 500 mg 2023-05 11:30: 00 03-05 22:06 :08 No 500mg 500 mg, Oral, Q8H, 42 doses, First dose on Sat03/05/24 at 0630, Last dose on Sat03/18/24 at 2200, Routine, Reason for Anti-Infec tive: Documented Infection, Documented Infection Site: Abdominal, Duration of Therapy: 14 days [facility] pantoprazol e (PROTONIX) injection 40 mg 2023-05 01:00: 00 03-05 16:38 :50 No 40mg 40 mg, Slow IV Push, Q12H, First dose on Sat03/04/24 at 2000, Until Discontinu ed [facility] metroNIDAZO LE 500 mg tablet 2023-05 00:00: 00 Yes [id number] 500mg Take 1 tablet by mouth 4 (four) times daily. [facility] tetracyclin e 500 mg capsule 2023-05 00:00: 00 Yes [id number] 500mg Take 1 capsule by mouth 4 (four) times daily. [facility] bismuth subsalicyla te 525 mg Tab 2023-05 00:00: 00 Yes [id number] 525mg Take 525 mg by mouth 4 (four) times daily. [facility] omeprazole 20 mg capsule 2023-05 00:00: 00 Yes [id number] 20mg Take 1 capsule by mouth in the morning and 1 capsule in the evening. [facility] ondansetron 4 mg disintegrat ing tablet 2023-05 00:00: 00 Yes [id number] 4mg Take 1 tablet by mouth every 8 (eight) hours as needed for Nausea and Vomiting (N/V). [facility] enoxaparin (LOVENOX) injection 40 mg 2023-05 22:00: 00 03-05 22:06 :08 No 40mg 40 mg, Subcutaneo us, DAILY, First dose on Sat03/04/24 at 1700, Until Discontinu ed, Routine [facility] hydrOXYzine (ATARAX) tablet 10 mg 2023-05 20:02: 48 03-05 22:06 :08 No 10mg 10 mg, Oral, Q6HPRN, Starting on Sat03/04/24 at 1502, Until Kathie 03/05/24 at 1706, Routine, Anxiety [facility] morphine (2 mg/mL) injection 4 mg 2023-05 19:15: 05 03-05 19:09 :51 No 4mg 4 mg, Slow IV Push, Q6HPRN, Starting on Sat03/04/24 at 1415, Until Kathie 03/05/24 at 1409, Routine, Pain (scale 7-10) [facility] proMETHazin e (PHENERGAN) 12.5 mg in NS 50 mL IV piggyback (CNR) 2023-05 19:13: 41 03-05 22:06 :08 No 12.5mg 12.5 mg, IV Piggyback, at 200 mL/hr Administer over 15 Minutes, Q4HPRN, Starting on Sat03/04/24 at 1413, Until Sat03/05/24 at 1706, Routine, N/V unresponsi ve to Ondansetro n [facility] ondansetron (ZOFRAN (PF)) injection 4 mg 2023-05 19:10: 57 03-05 22:06 :08 No 4mg 4 mg, Slow IV Push, Q6HPRN, Starting on Sat03/04/24 at 1410, Until Sat03/05/24 at 1706, Routine, Nausea and Vomiting (N/V) [facility] HYDROcodone -acetaminop hen (NORCO 5) tablet 1 tablet 2023-05 19:10: 38 03-05 22:06 :08 No 1{tbl} 1 tablet, Oral, Q6HPRN, Starting on Sat03/04/24 at 1410, Until Sat03/05/24 at 1706, Routine, Pain (scale 4-6) [facility] acetaminoph en (TYLENOL) tablet 650 mg 2023-05 19:10: 34 03-05 22:06 :08 No 650mg [facility] morphine (2 mg/mL) injection 4 mg 2023-05 16:15: 00 03-04 16:19 :00 No 4mg 4 mg, Slow IV Push, ONCE, 1 dose, On Sat03/04/24 at 1115, [place] [facility] ondansetron (ZOFRAN (PF)) injection 4 mg 2023-05 16:15: 00 03-04 16:19 :00 No 4mg 4 mg, Slow IV Push, ONCE, 1 dose, On Sat03/04/24 at 1115, [place] [facility] morphine (2 mg/mL) injection 4 mg 2023-05 13:15: 00 03-04 13:57 :00 No 4mg 4 mg, Slow IV Push, ONCE, 1 dose, On Sat03/04/24 at 0815, STAT [facility] pantoprazol e (PROTONIX) injection 40 mg 2023-05 13:15: 00 03-04 14:04 :00 No 40mg 40 mg, Slow IV Push, ONCE, 1 dose, On Sat03/04/24 at 0815 [facility] NaCl 0.9% (NS) bolus infusion 1,000 mL 2023-05 13:15: 00 03-04 16:51 :00 No 1000mL at 999 mL/hr, 1,000 mL, IV Infusion, ONCE, 1 dose, On Sat03/04/24 at 0815, [place] [facility] ondansetron (ZOFRAN (PF)) injection 4 mg 2023-05 12:15: 00 03-04 13:56 :00 No 4mg 4 mg, Slow IV Push, ONCE, 1 dose, On Sat03/04/24 at 0715, [place] [facility] escitalopra m oxalate 20 mg tablet 2023-05 00:00: 00 Yes 20mg Take 1 tablet by mouth in the morning. [facility] eszopiclone 3 mg tablet 2023-05 00:00: 00 Yes 3mg Take 1 tablet by mouth at bedtime. [facility] bismuth subsalicyla te 525 mg Tab 2023-05 00:00: 00 03-05 00:00 :00 No [id number] 525mg Take 525 mg by mouth 4 (four) times daily for 14 days. [facility] metroNIDAZO LE 500 mg tablet 2023-05 00:00: 00 03-05 00:00 :00 No [id number] 500mg Take 1 tablet by mouth 4 (four) times daily for 14 days. [facility] tetracyclin e 500 mg capsule 2023-05 00:00: 00 03-05 00:00 :00 No [id number] 500mg Take 1 capsule by mouth 4 (four) times daily for 14 days. [facility] omeprazole 20 mg capsule 2023-05 00:00: 00 03-05 00:00 :00 No [id number] 20mg Take 1 capsule by mouth in the morning and 1 capsule in the evening. Do all this for 14 days. [facility] pantoprazol e (PROTONIX) EC tablet 40 mg 2023-05 16:45: 00 02-26 23:59 :22 No 40mg 40 mg, Oral, BID, First dose (after last modificati on) on Kathie 02/27/24 at 1145, Until Discontinu ed, Routine [facility] lactated ringers IV infusion 2023-05 15:19: 00 02-26 15:26 :52 No IV Infusion, CONTINUOUS PRN, Starting on Kathie 02/27/24 at 1019, Until Kathie 02/27/24 at 1026, Routine, Intra-op [facility] simethicone (GAS RELIEF (SIMETHICON E)) 40 mg/0.6 mL drops 2023-05 14:57: 00 02-26 16:34 :28 No PRN, Starting on Kathie 02/27/24 at 0957, Until Kathie 02/27/24 at 1134, Routine, Intra-op [facility] PHENYLephri ne 1000 mcg/10 mL in 0.9% NaCl syringe 2023-05 14:50: 00 02-26 15:26 :52 No Intravenou s, ONCE INTRA PROCEDURE, Starting on Kathie 02/27/24 at 0950, Until Kathie 02/27/24 at 1026, Routine, Intra-op [facility] dexmedeTOMI Dine (PRECEDEX) injection 2023-05 14:27: 00 02-26 15:26 :52 No Intravenou s, ONCE INTRA PROCEDURE, Starting on Kathie 02/27/24 at 0927, Until Kathie 02/27/24 at 1026, Routine, Intra-op [facility] propofoL IV infusion 2023-05 14:26: 00 02-26 15:26 :52 No IV Infusion, ONCE INTRA PROCEDURE, Starting on Kathie 02/27/24 at 0926, Until Kathie 02/27/24 at 1026, Routine, Intra-op [facility] lidocaine 1% (XYLOCAINE) 100 mg/10 mL (1 %) injection 2023-05 14:26: 00 02-26 15:26 :52 No Intravenou s, ONCE INTRA PROCEDURE, Starting on Kathie 02/27/24 at 0926, Until Kathie 02/27/24 at 1026, Routine, Intra-op [facility] FENTanyl (PF) (SUBLIMAZE) injection 2023-05 14:26: 00 02-26 15:26 :52 No Intravenou s, ONCE INTRA PROCEDURE, Starting on Kathie 02/27/24 at 0926, Until Kathie 02/27/24 at 1026, Routine, Intra-op [facility] midazolam (VERSED) injection 2023-05 14:24: 00 02-26 15:26 :52 No IV Push, ONCE INTRA PROCEDURE, Starting on Kathie 02/27/24 at 0924, Until Kathie 02/27/24 at 1026, Routine, Intra-op [facility] NaCl 0.9% (NS) IV infusion 2023-05 14:22: 00 02-26 15:26 :52 No IV Infusion, CONTINUOUS PRN, Starting on Kathie 02/27/24 at 0922, Until Kathie 02/27/24 at 1026, Routine, Intra-op [facility] sodium phosphates (READY-TO-U SE ENEMA) 19-7 gram/118 mL enema 1 Enema 2023-05 10:00: 00 02-26 10:05 :00 No 1{enema } 1 Enema, Rectal, ONCE, 1 dose, On Kathie 02/27/24 at 0500, Routine [facility] polyethylen [facility] glycol 3350 powder 17 g 2023-05 01:00: 00 02-26 21:59 :19 No 17g 17 g, Oral, BID, First dose (after last modificati on) on Sat02/26/24 at 2000, Until Discontinu ed, Routine [facility] ondansetron 4 mg disintegrat ing tablet 2023-05 00:00: 00 03-05 00:00 :00 No [id number] 4mg Take 1 tablet by mouth every 8 (eight) hours as needed for Nausea and Vomiting (N/V). [facility] pantoprazol e 40 mg EC tablet 2023-05 00:00: 00 03-05 00:00 :00 No [id number] 40mg Take 1 tablet by mouth in the morning and 1 tablet in the evening. [facility] amitriptyli ne 25 mg tablet 2023-05 00:00: 00 03-04 00:00 :00 No [id number] 25mg Take 1 tablet by mouth at bedtime. [facility] acetaminoph en-codeine 300-30 mg tablet 2023-05 00:00: 00 02-26 00:00 :00 No [id number] 1{tbl} Take 1 tablet by mouth every 4 (four) hours as needed for Pain (scale 7-10) for up to 7 days. Indication s: acute pain [facility] simethicone (GAS RELIEF (SIMETHICON E)) chewable tablet 80 mg 2023-05 23:00: 00 02-26 21:59 :19 No 80mg 80 mg, Oral, PC+HS, First dose on Sat02/26/24 at 1800, Until Discontinu ed, Routine [facility] morphine (2 mg/mL) injection 2 mg 2023-05 20:22: 36 02-26 21:59 :19 No 2mg 2 mg, Slow IV Push, Q4HPRN, Starting on Sat02/26/24 at 1522, Until Kathie 02/27/24 at 1659, Routine, Pain (scale 4-6) [facility] morphine (2 mg/mL) injection 4 mg 2023-05 20:22: 32 02-26 21:59 :19 No 4mg 4 mg, Slow IV Push, Q4HPRN, Starting on Sat02/26/24 at 1522, Until Sat02/27/24 at 1659, Routine, Pain (scale 7-10) [facility] LORazepam (ATIVAN) injection 0.5 mg 2023-05 18:39: 21 02-26 21:59 :19 No .5mg 0.5 mg, Slow IV Push, Q6HPRN, Starting on Sat02/26/24 at 1339, Until Sat02/27/24 at 1659, Routine, Anxiety [facility] bisacodyL (DULCOLAX) suppository 10 mg 2023-05 18:17: 00 02-25 18:47 :00 No 10mg 10 mg, Rectal, ONCE NOW, 1 dose, On Sat02/26/24 at 1330, Routine [facility] acetaminoph en (OFIRMEV) IV piggyback 1,000 mg 2023-05 15:30: 00 02-25 15:03 :00 No 1000mg 1,000 mg, IV Piggyback, at 400 mL/hr Administer over 15 Minutes, ONCE, 1 dose, On Sat02/26/24 at 1030, Routine, Is the patient strict NPO and unable to tolerate oral medication s? Yes [facility] bisacodyL (DULCOLAX) tablet 5 mg 2023-05 14:30: 00 02-26 21:59 :19 No 5mg 5 mg, Oral, DAILY, First dose on Sat02/26/24 at 0930, Until Discontinu ed, Routine [facility] amitriptyli ne (ELAVIL) tablet 25 mg 2023-05 02:00: 00 02-26 23:59 :22 No 25mg 25 mg, Oral, QHS, First dose on Sat02/25/24 at 2100, Until Discontinu ed, Routine [facility] morphine (2 mg/mL) injection 4 mg 2023-05 18:49: 53 02-25 14:28 :08 No 4mg 4 mg, Slow IV Push, Q4HPRN, Starting on Sat02/25/24 at 1349, Until Sat02/26/24 at 0928, Routine, Pain (scale 7-10) [facility] morphine (2 mg/mL) injection 2 mg 2023-05 18:49: 15 02-25 14:28 :08 No 2mg 2 mg, Slow IV Push, Q4HPRN, Starting on Sat02/25/24 at 1349, Until Sat02/26/24 at 0928, Routine, Pain (scale 7-10) [facility] gadobenate dimeglumine (MULTIHANCE -10 mL) injection 9.08 mL 2023-05 17:30: 00 02-24 17:30 :00 No [id number] .2mL/kg 9.08 mL (0.2 mL/kg ?45.4 kg), Intravenou s, ONCE, 1 dose, On Sat02/25/24 at 1230, Routine [facility] LORazepam (ATIVAN) injection 1 mg 2023-05 17:00: 00 02-24 16:25 :00 No 1mg 1 mg, Slow IV Push, ONCE, 1 dose, On Sat02/25/24 at 1200, STAT [facility] polyethylen e glycol 3350 powder 17 g 2023-05 16:00: 00 02-25 14:24 :01 No 17g 17 g, Oral, DAILY, First dose on Sat02/25/24 at 1100, Until Discontinu ed, Routine [facility] lactated ringers IV infusion 1,000 mL 2023-05 13:15: 00 02-26 21:59 :19 No 1000mL at 125 mL/hr, 1,000 mL, IV Infusion, CONTINUOUS , Starting on Sat02/25/24 at 0815, Until Kathie 02/27/24 at 1659, Routine [facility] potassium chloride in water (KCL) 20 mEq/100 mL IV infusion 20 mEq 2023-05 13:00: 00 02-24 13:30 :00 No 20meq 20 mEq, IV Infusion, at 50 mL/hr Administer over 2 Hours, ONCE, 1 dose, On Sat02/25/24 at 0800, Routine [facility] melatonin (MELATIN) tablet 3 mg 2023-05 02:00: 00 02-26 21:59 :19 No 3mg 3 mg, Oral, QHS, First dose on Sat02/24/24 at 2100, Until Discontinu ed, Routine [facility] lactated ringers IV infusion 500 mL 2023-05 19:30: 00 02-24 09:54 :00 No 500mL at 999 mL/hr, 500 mL, IV Infusion, ONCE, 1 dose, On Sat02/24/24 at 1430, Routine [facility] Lidocaine (LIDOCARE) 4 % patch 1 Patch 2023-05 18:00: 00 02-24 05:15 :00 No 1{patch } 1 Patch, Topical, Administer over 12 Hours, ONCE, 1 dose, On Sat02/24/24 at 1300, Routine [facility] LORazepam (ATIVAN) injection 0.5 mg 2023-05 12:25: 30 02-25 18:39 :43 No .5mg 0.5 mg, Slow IV Push, Q6HPRN, Starting on Sat02/24/24 at 0725, Until Sat02/26/24 at 1339, Routine, Anxiety, Agitation [facility] diphenhydrA MINE (BENADRYL) injection 25 mg 2023-05 01:40: 29 02-23 14:54 :01 No 25mg 25 mg, Intravenou s, Q6HPRN, Starting on Sat02/23/24 at 2040, Until Sat02/24/24 at 0954, Routine, Nausea and Vomiting (N/V) [facility] LORazepam (ATIVAN) injection 0.5 mg 2023-05 01:39: 00 02-23 02:48 :00 No .5mg 0.5 mg, Slow IV Push, ONCE, 1 dose, On Sat02/23/24 at 2045, Routine [facility] diphenhydrA MINE (BENADRYL) injection 25 mg 2023-05 14:19: 13 02-23 01:14 :28 No 25mg 25 mg, Intravenou s, Q6HPRN, Starting on 02/23/24 at 0919, Until 02/23/24 at 2014, Routine, Nausea and Vomiting (N/V) [facility] ondansetron (ZOFRAN (PF)) injection 4 mg 2023-05 14:18: 38 02-26 21:59 :19 No 4mg 4 mg, Slow IV Push, Q6HPRN, Nausea and Vomiting (N/V), Starting on 02/23/24 at 0918, Doses of ondansetro n 16 mg and above need to be administer ed via IV piggyback. For Dose >=24mg ECG monitoring is advisable. [facility] pantoprazol e (PROTONIX) injection 40 mg 2023-05 11:53: 00 02-25 19:46 :39 No 40mg 40 mg, Slow IV Push, Q24H, First dose (after last modificati on) on Sat02/23/24 at 0700, Until Discontinu ed [facility] cariprazine (VRAYLAR) 1.5 mg capsule 2023-05 09:24: 25 Yes 1.5mg Take 1 capsule by mouth in the morning. [facility] LORazepam 0.5 mg tablet 2023-05 09:24: 25 Yes .5mg Take 1 tablet by mouth. [facility] diphenhydrA MINE (BENADRYL) injection 25 mg 2023-05 03:57: 18 02-22 14:19 :23 No 25mg 25 mg, Intravenou s, Q4HPRN, Starting on 02/22/24 at 2257, Until 02/23/24 at 0919, Routine, Nausea and Vomiting (N/V) [facility] heparin (porcine) injection 5,000 Units 2023-05 01:00: 00 02-26 21:59 :19 No 5000U 5,000 Units, Subcutaneo us, Q12H, First dose on 02/22/24 at 2000, Until Discontinu ed, Routine [facility] morphine (2 mg/mL) injection 4 mg 2023-05 19:33: 18 02-24 15:57 :38 No 4mg 4 mg, Slow IV Push, Q4HPRN, Starting on 02/22/24 at 1433, Until 02/25/24 at 1057, Routine, Pain (scale 7-10) [facility] proMETHazin e (PHENERGAN) 25 mg in NS 50 mL IV piggyback (CNR) 2023-05 19:33: 05 02-22 14:19 :00 No 25mg 25 mg, IV Piggyback, at 200 mL/hr Administer over 15 Minutes, Q4HPRN, Starting on 02/22/24 at 1433, Until 02/23/24 at 0919, [place], Nausea and Vomiting (N/V) [facility] metoprolol tartrate 50 mg tablet 2023-05 19:26: 59 02-26 00:00 :00 No 50mg Take 1 tablet by mouth in the morning and 1 tablet in the evening. [facility] escitalopra m oxalate (LEXAPRO) 10 mg tablet 2023-05 19:26: 59 02-26 00:00 :00 No 10mg Take 1 tablet by mouth in the morning. [facility] morphine (2 mg/mL) injection 4 mg 2023-05 17:45: 00 02-21 18:20 :00 No 4mg 4 mg, Slow IV Push, ONCE, 1 dose, On 02/22/24 at 1245, STAT [facility] proMETHazin e (PHENERGAN) 25 mg in NS 50 mL IV piggyback (CNR) 2023-05 16:45: 00 02-21 17:33 :00 No 25mg 25 mg, IV Piggyback, at 200 mL/hr Administer over 15 Minutes, ONCE, 1 dose, On 02/22/24 at 1145, [facility] morphine (2 mg/mL) injection 4 mg 2023-05 16:00: 00 02-21 16:06 :00 No 4mg 4 mg, Slow IV Push, ONCE, 1 dose, On 02/22/24 at 1100, STAT [facility] famotidine (PEPCID (PF)) injection 20 mg 2023-05 15:00: 00 02-21 15:35 :00 No 20mg 20 mg, Slow IV Push, ONCE, 1 dose, On 02/22/24 at 1000, [facility] ondansetron (ZOFRAN (PF)) injection 4 mg 2023-05 15:00: 00 02-21 15:34 :00 No 4mg 4 mg, Slow IV Push, ONCE, 1 dose, On 02/22/24 at 1000, [facility] NaCl 0.9% (NS) bolus infusion 1,000 mL 2023-05 15:00: 00 02-21 18:06 :00 No 1000mL at 999 mL/hr, 1,000 mL, IV Infusion, ONCE, 1 dose, On 02/22/24 at 1000, STAT [facility] buPROPion XL 150 mg 24 hr tablet 01-22 00:00: 00 Yes 150mg Take 1 tablet by mouth every morning. [facility] cholestyram ine 4 gram powder 01-20 00:00: 00 Yes MIX AND DRINK 1 SCOOP BY MOUTH DAILY [facility] busPIRone 7.5 mg tablet 01-19 00:00: 00 Yes 7.5mg Take 1 tablet by mouth in the morning and 1 tablet in the evening. [facility] metoprolol tartrate 50 mg tablet 08-25 11:55: 42 Yes 50mg Take 1 tablet by mouth in the morning and 1 tablet in the evening. [facility] escitalopra m oxalate (LEXAPRO) 10 mg tablet 08-25 11:55: 42 Yes 10mg Take 1 tablet by mouth in the morning. [facility] divalproex ER 250 mg 24 hr tablet 08-23 00:00: 00 11-22 04:59 :00 No [id number] 250mg Take 1 tablet by mouth in the morning and 1 tablet in the evening. Do all this for 90 days. [facility] acetaminoph en-codeine 300-30 mg tablet 08-23 00:00: 00 08-31 04:59 :00 No [id number] 1{tbl} Take 1 tablet by mouth every 6 (six) hours as needed for Pain (scale 4-6) or Pain (scale 7-10) for up to 7 days. Indication s: acute pain [facility] cefTRIAXone (ROCEPHIN) 1,000 mg in NaCl 0.9% (NS) 100 mL MINI-BAG 05-19 16:45: 00 05-19 17:24 :00 No 1000mg 1,000 mg, IV Piggyback, ONCE, 1 dose, On 05/19/23 at 1045, Administer over 30 Minutes, 100 mL
Reas on for Anti-Infec tive: Documented Infection< br>Documen renata Infection Site: Urine
D uration of Therapy: Other (see Comments) [facility] morpHINE (4 mg/mL) injection 4 mg 05-19 16:45: 00 05-19 16:53 :00 No 4mg 4 mg, Slow IV Push, ONCE, 1 dose, On 05/19/23 at 1045, STAT [facility] NaCl 0.9% (NS) bolus infusion 1,000 mL 05-19 16:00: 00 05-19 17:00 :00 No 1000mL at 999 mL/hr, 1,000 mL, IV Infusion, ONCE, 1 dose, On 05/19/23 at 1000, [place] [facility] iopamidol (ISOVUE 370-500 mL) injection 80 mL 05-19 15:50: 00 05-19 16:15 :00 No [id number] 80mL 80 mL, Intravenou s, ONCE, 1 dose, On 05/19/23 at 1015, Routine [facility] dicyclomine (BENTYL) tablet 20 mg 05-19 15:45: 00 05-19 16:09 :00 No 20mg 20 mg, Oral, ONCE, 1 dose, On 05/19/23 at 0945[facility] (ZOFRAN (PF)) injection 4 mg 05-19 15:15: 00 05-19 15:50 :00 No 4mg 4 mg, Slow IV Push, ONCE, 1 dose, On 05/19/23 at 0915, [facility] maalox:diph enhydrAMINE :lidocaine 2 % viscous 1:1:1 ([facility]) oral suspension 15 mL 05-19 15:15: 00 05-19 15:49 :00 No 15mL 15 mL, Oral, ONCE, 1 dose, On 05/19/23 at 0915, Routine [facility] famotidine (PEPCID (PF)) injection 20 mg 05-19 15:15: 00 05-19 15:51 :00 No 20mg 20 mg, Slow IV Push, ONCE, 1 dose, On 05/19/23 at 0915, [facility] ondansetron 4 mg disintegrat ing tablet 05-19 00:00: 00 02-26 00:00 :00 No [id number] 4mg Take 1 tablet by mouth every 8 (eight) hours as needed for Nausea and Vomiting (N/V). [facility] sucralfate 1 gram tablet 05-19 00:00: 00 06-19 05:59 :00 No [id number] 1g Take 1 tablet by mouth before meals and at bedtime for 30 days. [facility] pantoprazol e 40 mg EC tablet 05-19 00:00: 00 06-19 05:59 :00 No [id number] 40mg Take 1 tablet by mouth in the morning for 30 days. [facility] cefdinir 300 mg capsule 07 00:00: 00 05-27 05:59 :00 No [id number] 300mg Take 1 capsule by mouth every 12 (twelve) hours for 7 days. [facility] morpHINE (2 mg/mL) injection 2 mg 01-15 19:15: 01-15 18:49 :00 No 2mg 2 mg, Slow IV Push, ONCE, 1 dose, On Sat01/15/23 at 1415, Routine [facility] ondansetron (ZOFRAN) tablet 4 mg 01-15 18:15: 01-15 22:02 :00 No 4mg 4 mg, Oral, ONCE, 1 dose, On Sat01/15/23 at 1315, Routine [facility] ondansetron 4 mg tablet 01-15 00:00: 00 02-26 00:00 :00 No [id number] 4mg Take 1 tablet by mouth every 8 (eight) hours as needed for Nausea and Vomiting (N/V). [facility] HYDROcodone -acetaminop hen 5-325 mg tablet 01-15 00:00: 00 01-23 04:59 :00 No [id number] 1{tbl} Take 1 tablet by mouth every 4 (four) hours as needed for Pain (scale 4-6) for up to 7 days. Indication s: acute pain [facility] morpHINE (2 mg/mL) injection 2 mg 01-14 16:11: 23 01-15 11:49 :59 No 2mg 2 mg, Slow IV Push, Q4HPRN, Starting on Sat01/14/23 at 1111, Until Sat01/15/23 at 0649, Routine, Pain (scale 7-10) [facility] methocarbam oL (ROBAXIN) tablet 500 mg 01-14 13:00: 00 Yes 500mg 500 mg, Oral, QID, First dose on Sat01/14/23 at 0800, Until Discontinu ed, Routine [facility] celecoxib (CELEBREX) capsule 100 mg 01-14 13:00: 00 Yes 100mg 100 mg, Oral, BID MEALS, First dose on 01/14/23 at 0800, Until Discontinu ed, Routine [facility] gabapentin (NEURONTIN) capsule 300 mg 01-14 01:30: 00 Yes 300mg 300 mg, Oral, TID, First dose on Sat01/13/23 at 2030, Until Discontinu ed, Routine [facility] acetaminoph en (TYLENOL) tablet 1,000 mg 01-14 01:30: 00 Yes 1000mg 1,000 mg, Oral, Q8H, First dose (after last modificati on) on Sat01/13/23 at 2030, Until Discontinu ed, Routine [facility] scopolamine transdermal (TRANSDERM- SCOP) patch 1.5 mg 01-13 00:30: 00 Yes 1.5mg 1.5 mg, Topical, Administer over 72 Hours, Q72H, First dose on 01/12/23 at 1930, Until Discontinu ed, Routine [facility] enoxaparin (LOVENOX) injection 40 mg 01-12 22:00: 00 Yes 40mg 40 mg, Subcutaneo us, DAILY, First dose on 01/12/23 at 1700, Until Discontinu ed, Routine [facility] FENTanyl PF (SUBLIMAZE (PF)) injection 100 mcg 01-12 20:30: 00 01-12 20:30 :00 No [id number] 100ug 100 mcg, Slow IV Push, ONCE, 1 dose, On 01/12/23 at 1530, Routine [facility] proMETHazin e (PHENERGAN) 25 mg in NS 50 mL IV piggyback (CNR) 01-12 17:11: 31 01-15 14:12 :44 No 25mg 25 mg, IV Piggyback, at 200 mL/hr Administer over 15 Minutes, Q4HPRN, Starting on Sat01/12/23 at 1211, Until Sat01/15/23 at 0912, Routine, Nausea and Vomiting (N/V) [facility] piperacilli n-tazobacta m (ZOSYN) 3.375 [...] Abdominal< br>Duratio n of Therapy: 7 days [facility] pantoprazol e (PROTONIX) EC tablet 40 mg 01-12 14:00: 00 Yes 40mg 40 mg, Oral, DAILY, First dose on Sat01/12/23 at 0900, Until Discontinu ed, Routine [facility] KCL (KLOR-CON M20) tablet 40 mEq 01-12 09:30: 00 01-12 09:25 :00 No 40meq 40 mEq, Oral, ONCE, 1 dose, On Sat01/12/23 at 0430, Routine [facility] diphenhydrA MINE (BENADRYL) tablet 25 mg 01-12 08:31: 43 Yes 25mg 25 mg, Oral, QHSPRN, Starting on Sat01/12/23 at 0331, Until Discontinu ed, Routine, Itching, Sleep [facility] lactated ringers IV infusion 1,000 mL 01-12 08:15: 00 01-15 11:48 :29 No 1000mL at 50 mL/hr, 1,000 mL, IV Infusion, CONTINUOUS , Starting on Sat01/12/23 at 0315, Until Sat01/15/23 at 0648, Routine [facility] piperacilli n-tazobacta m (ZOSYN) 3.375 g in NaCl 0.9% (NS) 100 mL MINI-BAG 01-12 06:45: 00 01-12 08:43 :00 No 3.375g 3.375 g, IV Piggyback, ONCE, 1 dose, On 01/12/23 at 0145, Administer over 30 Minutes, 100 mL
Reas on for Anti-Infec tive: Documented Infection< br>Documen renata Infection Site: Abdominal< br>Duratio n of Therapy: 7 days [facility] lactated ringers IV infusion 1,000 mL 01-12 06:00: 00 01-12 08:13 :38 No 1000mL at 100 mL/hr, 1,000 mL, IV Infusion, CONTINUOUS , Starting on 01/12/23 at 0100, Until 01/12/23 at 0313, Routine [facility] morpHINE (4 mg/mL) injection 4 mg 01-12 05:49: 22 01-14 05:48 :22 No 4mg 4 mg, Slow IV Push, Q4HPRN, Starting on 01/12/23 at 0049, Until 01/14/23 at 0048, Routine, Pain (scale 7-10) [facility] HYDROcodone -acetaminop hen (NORCO 5) 5-325 mg tablet 1 tablet 01-12 05:49: 18 Yes 1{tbl} 1 tablet, Oral, Q4HPRN, Starting on 01/12/23 at 0049, Until Discontinu ed, Routine, Pain (scale 4-6) [facility] ondansetron (ZOFRAN (PF)) injection 4 mg 01-12 05:49: 11 01-15 17:31 :12 No 4mg 4 mg, Slow IV Push, Q6HPRN, Starting on 01/12/23 at 0049, Until 01/15/23 at 1231, Routine, Nausea and Vomiting (N/V) [facility] ondansetron (ZOFRAN (PF)) injection 4 mg 01-12 04:45: 00 01-12 04:45 :00 No 4mg 4 mg, Slow IV Push, ONCE, 1 dose, On Sat01/11/23 at 2345, [facility] mor[facility] (4 mg/mL) injection 4 mg 01-12 04:45: 00 01-12 04:45 :00 No 4mg 4 mg, Slow IV Push, ONCE, 1 dose, On Sat01/11/23 at 2345, STAT [facility] proMETHazin e (PHENERGAN) 25 mg in NS 50 mL IV piggyback (CNR) 01-12 04:45: 00 01-12 06:00 :00 No 25mg 25 mg, IV Piggyback, at 200 mL/hr Administer over 15 Minutes, ONCE, 1 dose, On Sat01/11/23 at 2345, [facility] iopamidol (ISOVUE 370-500 mL) injection 80 mL 01-12 03:33: 00 01-12 03:25 :00 No [id number] 80mL 80 mL, Intravenou s, ONCE, 1 dose, On Sat01/11/23 at 2245, Routine [facility] maalox:diph enhydrAMINE :lidocaine 2 % viscous 1:1:1 ([facility]) oral suspension 15 mL 01-12 03:30: 00 01-12 03:07 :00 No 15mL 15 mL, Oral, ONCE, 1 dose, On Sat01/11/23 at 2230, Routine [facility] morpHINE (4 mg/mL) injection 4 mg 01-12 03:30: 00 01-12 03:05 :00 No 4mg 4 mg, Slow IV Push, ONCE, 1 dose, On Sat01/11/23 at 2230, [facility] NaCl 0.9% (NS) bolus infusion 1,000 mL 01-12 03:30: 00 01-12 03:04 :00 No 1000mL at 999 mL/hr, 1,000 mL, IV Infusion, ONCE, 1 dose, On Sat01/11/23 at 2230, [facility] ondansetron (ZOFRAN (PF)) injection 4 mg 01-12 03:00: 00 01-12 03:05 :00 No 4mg 4 mg, Slow IV Push, ONCE, 1 dose, On Sat01/11/23 at 2200, [facility] ibuprofen (IBU) tablet 600 mg 11-21 22:15: 00 11-21 21:44 :00 No 600mg 600 mg, Oral, ONCE, 1 dose, On Sat11/21/22 at 1715, [facility] butalbital- acetaminoph en-caff (ESGIC) 50-325-40 mg tablet 1 tablet 11-21 21:30: 00 11-21 21:39 :00 No 1{tbl} 1 tablet, Oral, ONCE, 1 dose, On Sat11/21/22 at 1630, [facility] ciprofloxac in HCl 500 mg tablet 11-11 00:00: 00 02-26 00:00 :00 No TAKE 1 TABLET BY MOUTH EVERY 12 HOURS FOR 7 DAYS [facility] methocarbam oL 750 mg tablet 11-07 00:00: 00 Yes 750mg Take 1 tablet by mouth 2 (two) times daily as needed. [facility] methocarbam oL 750 mg tablet 11-07 00:00: 00 02-26 00:00 :00 No 1{tbl} Take 1 tablet by mouth 2 (two) times daily as needed. [facility] baclofen 10 mg tablet 10-27 00:00: 00 Yes 10mg Take 1 tablet by mouth every 6 (six) hours as needed. [facility] baclofen 10 mg tablet 10-27 00:00: 00 02-26 00:00 :00 No 1{tbl} Take 1 tablet by mouth every 6 (six) hours as needed. [facility] tiZANidine 4 mg tablet 14 00:00: 00 Yes 4mg Take 1 tablet by mouth every 6 (six) hours as needed. [facility] tiZANidine 4 mg tablet 2022-0 6-14 00:00: 00 02-26 00:00 :00 No 1{tbl} Take 1 tablet by mouth every 6 (six) hours as needed. [facility] traZODone 50 mg tablet 2022-0 6-12 00:00: 00 Yes 50mg Take 1 tablet by mouth at bedtime. [facility] traZODone 50 mg tablet 2022-0 6-12 00:00: 00 02-26 00:00 :00 No 1{tbl} Take 1 tablet by mouth at bedtime. [facility] hydrOXYzine 50 mg tablet 0 5-23 00:00: 00 Yes 50mg Take 1 tablet by mouth every 6 (six) hours as needed. [facility] hydrOXYzine 50 mg tablet 0 5-23 00:00: 00 02-26 00:00 :00 No 1{tbl} Take 1 tablet by mouth every 6 (six) hours as needed. [facility] mirtazapine 15 mg tablet 2022-0 5-12 00:00: 00 02-26 00:00 :00 No 15mg Take 1 tablet by mouth at bedtime. [facility] meloxicam 15 mg tablet 0 5-09 00:00: 00 Yes 15mg Take 1 tablet by mouth in the morning. [facility] meloxicam 15 mg tablet 2022-0 5-09 00:00: 00 02-26 00:00 :00 No 1{tbl} Take 1 tablet by mouth in the morning. [facility] verapamil SR 120 mg ER tablet 2022-0 5-08 00:00: 00 Yes 120mg Take 1 tablet by mouth in the morning. [facility] verapamil SR 120 mg ER tablet 2022-0 5-08 00:00: 00 02-26 00:00 :00 No 1{tbl} Take 1 tablet by mouth in the morning. [facility] OLANZapine 10 mg tablet 0 4-27 00:00: 00 02-26 00:00 :00 No 10mg Take 1 tablet by mouth in the morning. [facility] cloNIDine 0.1 mg tablet 09-06 00:00: 00 02-26 00:00 :00 No TAKE 1-2 TABLETS BY MOUTH AT BEDTIME NEEDED FOR SLEEP AND ANXIETY [facility] NaCl 0.9% (NS) bolus infusion 1,000 mL 09-05 18:15: 09-05 18:08 :00 No 1000mL at 999 mL/hr, 1,000 mL, IV Infusion, ONCE, 1 dose, On Sat09/05/22 at 1315, STAT [facility] acetaminoph en (TYLENOL) tablet 650 mg 09-05 17:30: 00 09-05 17:24 :00 No 650mg 650 mg, Oral, ONCE, 1 dose, On Sat09/05/22 at 1230, [place] [facility] ondansetron (ZOFRAN (PF)) injection 4 mg 09-05 17:15: 09-05 17:23 :00 No 4mg 4 mg, Slow IV Push, ONCE, 1 dose, On Sat09/05/22 at 1215, [place] [facility] magnesium sulfate in water 2 gram/50 mL (4 %) infusion 2 g 09-05 16:15: 00 09-05 16:10 :00 No 2g 2 g, IV Piggyback, Administer over 30 Minutes, ONCE, 1 dose, On Sat09/05/22 at 1115, Routine [facility] diphenhydrA MINE (BENADRYL) injection 25 mg 09-05 16:00: 00 09-05 16:01 :00 No 25mg 25 mg, Slow IV Push, ONCE, 1 dose, On Sat09/05/22 at 1100, STAT [facility] ketorolac (TORADOL) injection 30 mg 09-05 15:30: 00 09-05 14:38 :00 No 30mg 30 mg, Slow IV Push, ONCE, 1 dose, On 4/26/23 at 1030, Routine [facility] NaCl 0.9% (NS) bolus infusion 1,000 mL 09-05 15:00: 00 09-05 17:12 :00 No 1000mL at 999 mL/hr, 1,000 mL, IV Infusion, ONCE, 1 dose, On Sat09/05/22 at 1000, STAT [facility] methylpredn isolone sod succ (SOLU-MEDRO L) injection 125 mg 09-05 14:45: 00 09-05 14:35 :00 No 125mg 125 mg, Intravenou s, ONCE, 1 dose, On Sat09/05/22 at 0945, 2 mL [facility] butalbital- acetaminoph en-caff (ESGIC) 50-325-40 mg tablet 1 tablet 09-05 14:00: 00 09-05 14:34 :00 No 1{tbl} 1 tablet, Oral, ONCE, 1 dose, On Sat09/05/22 at 0900, [place] [facility] diphenhydrA MINE (BENADRYL) injection 25 mg 09-05 14:00: 00 09-05 14:39 :00 No 25mg 25 mg, Slow IV Push, ONCE, 1 dose, On Sat09/05/22 at 0900, STAT [facility] proMETHazin e (PHENERGAN) 12.5 mg in NaCl 0.9% (NS) 50 mL IV piggyback 09-05 14:00: 00 09-05 14:40 :00 No 12.5mg 12.5 mg, IV Piggyback, ONCE, 1 dose, [facility] Sat09/05/22 at 0900[facility] carved[facility] mg tablet 09-05 00:00: 00 02-26 00:00 :00 No [id number] 25mg Take 1 tablet by mouth in the morning and 1 tablet in the evening. Take with meals. [facility] losartan 50 mg tablet 09-05 00:00: 00 02-26 00:00 :00 No [id number] 50mg Take 1 tablet by mouth in the morning and 1 tablet in the evening. [facility] ibuprofen 800 mg tablet 08-05 00:00: 00 02-26 00:00 :00 No 800mg Take 1 tablet by mouth 3 (three) times daily as needed. [facility] cyclobenzap rine 10 mg tablet 08-05 00:00: 00 02-26 00:00 :00 No 10mg Take 1 tablet by mouth 3 (three) times daily as needed. [facility] maalox:diph enhydrAMINE :lidocaine 2 % viscous 1:1:1 ([facility]) oral suspension 15 mL 08-01 00:45: 00 08-01 00:44 :00 No 15mL 15 mL, Oral, ONCE, 1 dose, On Sat07/31/22 at 1945, [place] [facility] ketorolac (TORADOL) injection 15 mg 08-01 00:15: 00 08-01 00:44 :00 No 15mg 15 mg, Slow IV Push, ONCE, 1 dose, On Sat07/31/22 at 1915, Routine [facility] ondansetron (ZOFRAN (PF)) injection 4 mg 08-01 00:15: 00 08-01 00:46 :00 No 4mg 4 mg, Slow IV Push, ONCE, 1 dose, On Sat07/31/22 at 1915, [facility] famotidine (PEPCID (PF)) injection 20 mg 08-01 00:15: 00 08-01 00:46 :00 No 20mg 20 mg, Slow IV Push, ONCE, 1 dose, On Sat07/31/22 at 191, [facility] ondansetron 4 mg disintegrat ing tablet 07-31 00:00: 00 05-19 00:00 :00 No [id number] 4mg Take 1 tablet by mouth every 8 (eight) hours as needed for Nausea and Vomiting (N/V). [facility] sucralfate 1 gram tablet 07-31 00:00: 00 05-19 00:00 :00 No [id number] 1g Take 1 tablet by mouth before meals and at bedtime. [facility] pantoprazol e 40 mg EC tablet 07-31 00:00: 00 08-15 04:59 :00 No [id number] 40mg Take 1 tablet by mouth in the morning for 14 days. [facility] tamsulosin 0.4 mg 24 hr capsule 07-25 00:00: 00 Yes .4mg Take 1 capsule by mouth in the morning. [facility] tamsulosin 0.4 mg 24 hr capsule 07-25 00:00: 00 02-26 00:00 :00 No 1{capsu le} Take 1 capsule by mouth in the morning. [facility] traMADoL 50 mg tablet 07-23 00:00: 00 02-26 00:00 :00 No 50mg Take 1 tablet by mouth. [facility] ibuprofen 600 mg tablet 07-15 00:00: 00 07-31 00:00 :00 No [id number] 600mg Take 1 tablet by mouth every 6 (six) hours as needed for Pain (scale 4-6). [facility] citalopram 10 mg tablet 06-29 00:00: 00 Yes 10mg Take 1 tablet by mouth in the morning. [facility] citalopram 10 mg tablet 06-29 00:00: 00 02-26 00:00 :00 No 1{tbl} Take 1 tablet by mouth in the morning. [facility] QUEtiapine 400 mg tablet 06-29 00:00: 00 02-26 00:00 :00 No [facility] gabapentin 600 mg tablet 06-29 00:00: 00 02-26 00:00 :00 No [facility] methylPREDN ISolone (MEDROL, ANABELA,) 4 mg tablets 06-23 00:00: 00 09-24 00:00 :00 No [id number] Take by mouth SEE-INSTRU CTIONS. follow package directions [facility] bromphenira mine-pseudo ephedrine-D M (BROMFED DM) 2-30-10 mg/5 mL syrup 06-23 00:00: 00 07-04 05:59 :00 No [id number] 5mL Take 5 mL by mouth 4 (four) times daily as needed for Cold symptoms for up to 10 days. [facility] methocarbam oL 750 mg tablet 06-23 00:00: 00 07-01 05:59 :00 No [id number] 750mg Take 1 tablet by mouth 4 (four) times daily for 7 days. [facility] magnesium sulfate in water 2 gram/50 mL (4 %) infusion 2 g 2021-05 21:00: 00 05-05 21:15 :00 No 2g 2 g, IV Piggyback, Administer over 15 Minutes, ONCE, 1 dose, On 05/05/22 at 1500, [facility] butalbital- acetaminoph en-caff (ESGIC) 50-325-40 mg tablet 1 tablet 2021-05 20:15: 00 05-05 20:56 :00 No 1{tbl} 1 tablet, Oral, ONCE, 1 dose, On 05/05/22 at 1415, [facility] phos [facility] 10 mg 2021-05 20:15: 00 05-05 21:00 :00 No 10mg 10 mg, Slow IV Push, ONCE, 1 dose, On 05/05/22 at 1415, 1 mL [facility] NaCl 0.9% (NS) bolus infusion 1,000 mL 2021-05 20:00: 00 05-05 21:45 :00 No 1000mL at 999 mL/hr, 1,000 mL, IV Infusion, ONCE, 1 dose, On 05/05/22 at 1400, [facility] diphenhydrA MINE (BENADRYL) injection 25 mg 2021-05 19:15: 00 05-05 19:42 :00 No 25mg 25 mg, Slow IV Push, ONCE, 1 dose, On 05/05/22 at 1315, STAT [facility] ondansetron (ZOFRAN (PF)) injection 4 mg 2021-05 19:15: 00 05-05 19:45 :00 No 4mg 4 mg, Slow IV Push, ONCE, 1 dose, On 05/05/22 at 1315, [place] [facility] ketorolac (TORADOL) injection 30 mg 2021-05 19:15: 00 05-05 19:44 :00 No 30mg 30 mg, Slow IV Push, ONCE, 1 dose, On 05/05/22 at 1315, Routine [facility] butalbital- acetaminoph en-caff 50-325-40 mg tablet 2021-05 00:00: 00 09-24 00:00 :00 No [id number] 1{tbl} Take 1 tablet by mouth every 4 (four) hours as needed for Pain (scale 7-10). [facility] HYDROcodone -acetaminop hen (NORCO) 10-325 mg tablet 1 tablet 2021-05 16:30: 00 04-26 15:23 :00 No 1{tbl} 1 tablet, Oral, ONCE, 1 dose, On Kathie 04/26/22 at 1030, Routine [facility] diphenhydrA MINE (BENADRYL) tablet 25 mg 2021-05 15:45: 00 04-26 15:53 :00 No 25mg 25 mg, Oral, ONCE, 1 dose, On Kathie 04/26/22 at 0945, [place] [facility] NaCl 0.9% (NS) bolus infusion 1,000 mL 2021-05 15:45: 00 04-26 15:55 :00 No 1000mL at 999 mL/hr, 1,000 mL, IV Piggyback, ONCE, 1 dose, On Kathie 04/26/22 at 0945, STAT [facility] ondansetron (ZOFRAN (PF)) injection 4 mg 2021-05 14:45: 00 04-26 14:52 :00 No 4mg 4 mg, Slow IV Push, ONCE, 1 dose, On Kathie 04/26/22 at 0845, Routine [facility] cephALEXin (KEFLEX) 500 mg capsule 2021-05 00:00: 00 05-04 05:59 :00 No [id number] 500mg Take 1 capsule by mouth in the morning and 1 capsule at noon and 1 capsule in the evening. Do all this for 7 days. [facility] ondansetron (ZOFRAN) 4 mg tablet 2021-05 00:00: 00 07-31 00:00 :00 No 4mg Take 1 tablet by mouth every 8 (eight) hours as needed for Nausea and Vomiting (N/V). [facility] galcanezuma b-gnlm prefilled (EMGALITY) subcutaneou s injection 2021-05 00:00: 00 02-26 00:00 :00 No [id number] 120mg inject 120 mg under the skin once every month. [facility] methocarbam oL (ROBAXIN) injection 1,000 mg 2021-05 04:00: 00 Yes 1000mg 1,000 mg, Intravenou s, Q8H, First dose on 04/07/22 at 2200, Until Discontinu ed, Routine [facility] ketorolac (TORADOL) injection 30 mg 2021-05 00:45: 00 04-07 23:45 :00 No 30mg 30 mg, Slow IV Push, ONCE, 1 dose, On 04/07/22 at 1845, Routine [facility] HYDROcodone -acetaminop hen (NORCO) 10-325 mg tablet 1 tablet 2021-05 00:30: 00 04-07 23:45 :00 No 1{tbl} 1 tablet, Oral, ONCE NOW, 1 dose, On 04/07/22 at 1830, Routine [facility] diphenhydrA MINE (BENADRYL) injection 12.5 mg 2021-05 23:45: 00 04-07 23:46 :00 No 12.5mg 12.5 mg, Slow IV Push, ONCE, 1 dose, On 04/07/22 at 1745, STAT [facility] butorphanol (STADOL) injection 1 mg 2021-05 23:15: 00 04-07 22:48 :00 No 1mg 1 mg, IV Push, ONCE, 1 dose, On 04/07/22 at 1715, Routine [facility] NaCl 0.9% (NS) bolus infusion 1,000 mL 2021-05 23:15: 00 04-07 23:49 :00 No 1000mL at 999 mL/hr, 1,000 mL, IV Infusion, ONCE, 1 dose, On 04/07/22 at 1715, [place] [facility] ketorolac (TORADOL) injection 15 mg 2021-05 19:30: 00 03-24 18:45 :00 No 15mg 15 mg, Slow IV Push, ONCE, 1 dose, On 03/24/22 at 1330, Routine [facility] butorphanol (STADOL) injection 1 mg 2021-05 18:00: 00 03-24 17:26 :00 No 1mg 1 mg, Intravenou s, ONCE, 1 dose, On 03/24/22 at 1200, Routine [facility] proMETHazin e (PHENERGAN) 25 mg in NaCl 0.9% (NS) 50 mL IV piggyback 2021-05 18:00: 00 03-24 18:13 :00 No 25mg 25 mg, IV Piggyback, ONCE, 1 dose, On 03/24/22 at 1200, [place] [facility] butorphanol (STADOL) injection 1 mg 2021-05 17:15: 00 03-24 16:26 :00 No 1mg 1 mg, IV Push, ONCE, 1 dose, On 03/24/22 at 1115, Routine [facility] diphenhydrA MINE (BENADRYL) injection 25 mg 2021-05 15:30: 00 03-24 15:40 :00 No 25mg 25 mg, Slow IV Push, ONCE, 1 dose, On 03/24/22 at 0930, STAT [facility] ondansetron (ZOFRAN (PF)) injection 4 mg 2021-05 15:30: 00 03-24 14:25 :00 No 4mg 4 mg, Slow IV Push, ONCE, 1 dose, On 03/24/22 at 0930, [place] [facility] NaCl 0.9% (NS) IV infusion 1,000 mL 2021-05 15:15: 00 03-24 17:25 :00 No 1000mL at 999 mL/hr, Intravenou s, ONCE, 1 dose, On 03/24/22 at 0915, [place] [facility] magnesium sulfate in water 2 gram/50 mL (4 %) infusion 2 g 2021-05 15:00: 00 03-24 14:47 :00 No 2g 2 g, IV Piggyback, Administer over 20 Minutes, ONCE, 1 dose, On 03/24/22 at 0900, Routine [facility] dexamethaso ne sod phos PF injection 6 mg 2021-05 14:15: 00 03-24 14:14 :00 No 6mg 6 mg, Slow IV Push, ONCE, 1 dose, On 03/24/22 at 0815, 1 mL [facility] diphenhydrA MINE (BENADRYL) injection 25 mg 2021-05 14:15: 00 03-24 14:16 :00 No 25mg 25 mg, Slow IV Push, ONCE, 1 dose, On 03/24/22 at 0815, STAT [facility] ALBUTEROL INHALE 2021-05 07:58: 13 03-24 00:00 :00 No [facility] rizatriptan 10 mg tablet 2021-05 00:00: 00 02-26 00:00 :00 No [id number] 10mg Take 1 tablet by mouth as needed for Migraine. May repeat in 2 hours if needed [facility] Butalbital- Acetaminoph en-Caff (FIORICET) 50-300-40 mg per capsule 2021-05 00:00: 00 02-26 00:00 :00 No [id number] 1{capsu le} Take 1 capsule by mouth every 6 (six) hours as needed for Other (headache) . [facility] magnesium oxide 200 mg magnesium Tab 2021-05 00:00: 00 04-07 00:00 :00 No [id number] 200mg Take 200 mg by mouth 2 (two) times daily. Indication s: headache [facility] SUMAtriptan 50 mg tablet 2021-05 00:00: 00 02-26 00:00 :00 No 50mg Take 1 tablet by mouth as needed for Migraine. Take one tablet at onset of migraine, may take another tablet 2 hours after initial dose if no relief with first dose. DO NOT EXCEED 100mg in a 24 hour period. [facility] FENTanyl PF (SUBLIMAZE (PF)) injection 50 mcg 2021-05 15:30: 00 03-15 14:56 :00 No 50ug 50 mcg, Slow IV Push, ONCE, 1 dose, On Sat03/15/22 at 1030, Routine [facility] proMETHazin e (PHENERGAN) tablet 25 mg 2021-05 14:45: 00 03-15 14:55 :00 No 25mg 25 mg, Oral, ONCE, 1 dose, On Sat03/15/22 at 0945, [place] [facility] FENTanyl PF (SUBLIMAZE (PF)) injection 50 mcg 2021-05 14:45: 00 03-15 13:58 :00 No 50ug 50 mcg, Slow IV Push, ONCE, 1 dose, On Sat03/15/22 at 0945, Routine [facility] ondansetron (ZOFRAN (PF)) injection 4 mg 2021-05 14:00: 00 03-15 13:58 :00 No 4mg 4 mg, Slow IV Push, ONCE, 1 dose, On Kathie 03/15/22 at 0900, [place] [facility] carvediloL 25 mg tablet 2021-05 00:00: 00 09-05 00:00 :00 No [id number] 25mg Take 1 tablet by mouth in the morning and 1 tablet in the evening. Take with meals. [facility] ondansetron 4 mg disintegrat ing tablet 2021-05 00:00: 00 04-07 00:00 :00 No [id number] 4mg Take 1 tablet by mouth every 8 (eight) hours as needed for Nausea and Vomiting (N/V). [facility] ketorolac 10 mg tablet 2021-05 00:00: 00 04-07 00:00 :00 No [id number] 10mg Take 1 tablet by mouth every 6 (six) hours as needed for Pain (scale 7-10). [facility] proMETHazin e 25 mg tablet 2021-05 00:00: 00 04-07 00:00 :00 No [id number] 25mg Take 1 tablet by mouth every 6 (six) hours as needed for N/V unresponsi ve to Ondansetro n. [facility] cephALEXin 500 mg capsule 2021-05 00:00: 00 03-19 05:59 :00 No [id number] 500mg Take 1 capsule by mouth 4 (four) times daily for 3 days. [facility] predniSONE 20 mg tablet 2021-05 00:00: 00 03-15 04:59 :00 No [id number] 20mg Take 1 tablet by mouth in the morning for 2 days. [facility] methocarbam oL (ROBAXIN) tablet 500 mg 2021-05 0 16:45: 00 03-11 17:08 :00 No 500mg 500 mg, Oral, ONCE, 1 dose, On 03/11/22 at 1200, [facility] dexamethaso ne sod phos PF injection 10 mg 2021-05 16:00: 00 03-11 16:00 :00 No 10mg 10 mg, Slow IV Push, ONCE, 1 dose, On 03/11/22 at 1100, 1 mL [facility] diphenhydrA MINE (BENADRYL) injection 25 mg 2021-05 15:46: 00 03-11 16:00 :00 No 25mg 25 mg, Slow IV Push, ONCE, 1 dose, On 03/11/22 at 1100, STAT [facility] NaCl 0.9% (NS) IV infusion 1,000 mL 2021-05 15:45: 00 03-11 16:04 :00 No 1000mL at 999 mL/hr, Intravenou s, ONCE, 1 dose, On Sat03/11/22 at 1045, Routine [facility] butalbital- acetaminoph en-caff (ESGIC) 50-325-40 mg tablet 1 tablet 2021-05 15:00: 00 03-11 15:05 :00 No 1{tbl} 1 tablet, Oral, ONCE, 1 dose, On 03/11/22 at 1015, [facility] ketorolac (TORADOL) injection 15 mg 2021-05 14:45: 00 03-11 15:05 :00 No 15mg 15 mg, Slow IV Push, ONCE, 1 dose, On 03/11/22 at 0945, [facility] proMETHazin e (PHENERGAN) 12.5 mg in NaCl 0.9% (NS) 50 mL IV piggyback 2021-05 14:45: 00 03-11 15:04 :00 No 12.5mg 12.5 mg, IV Piggyback, ONCE, 1 dose, On 03/11/22 at 0945, [facility] proMETHazin e 25 mg tablet 2021-05 00:00: 07-31 00:00 :00 No [id number] 25mg Take 1 tablet by mouth every 6 (six) hours as needed for Nausea and Vomiting (N/V). [facility] methocarbam oL 500 mg tablet 2021-05 030 00:00: 00 04-07 00:00 :00 No [id number] 500mg Take 1 tablet by mouth 3 (three) times daily as needed for Pain (scale 7-10). [facility] topiramate 25 mg tablet 2021-05 00:00: 00 02-26 00:00 :00 No [id number] 100mg Take 4 tablets by mouth in the morning. [facility] diphenhydrA MINE 25 mg capsule 2021-05 09:39: 59 02-27 00:00 :00 No 25mg Take 25 mg by mouth every 6 (six) hours as needed for Allergies. [facility] citalopram hydrobromid e (CITALOPRAM ORAL) 2021-05 09:39: 49 02-27 00:00 :00 No Take by mouth. [facility] carbamazepi ne (TEGRETOL ORAL) 2021-05 09:39: 28 02-27 00:00 :00 No Take by mouth. [facility] albuterol 90 mcg/actuati on inhaler 2021-05 00:00: 00 02-26 00:00 :00 No [id number] 2{puff} Inhale 2 Puffs every 6 (six) hours as needed for Wheezing or Shortness of Breath. [facility] SUMAtriptan 50 mg tablet 2021-05 00:00: 00 03-21 00:00 :00 No 50mg Take 50 mg by mouth as needed for Migraine. Take one tablet at onset of migraine, may take another tablet 2 hours after initial dose if no relief with first dose. DO NOT EXCEED 100mg in a 24 hour period. [facility] benzonatate 200 mg capsule 2021-05 00:00: 00 03-07 04:59 :00 No [id number] 200mg Take 1 capsule by mouth 3 (three) times daily as needed for Cough for up to 7 days. [facility] butalbital- acetaminoph en-caff (ESGIC) 50-325-40 mg tablet 1 tablet 2021-05 08:15: 00 02-21 08:09 :00 No 1{tbl} 1 tablet, Oral, ONCE, 1 dose, On Sat02/21/22 at 0315, [facility] butorphanol (STADOL) injection 1 mg 2021-05 08:15: 00 02-21 07:28 :00 No 1mg 1 mg, IV Push, ONCE, 1 dose, On Sat02/21/22 at 0315, Routine [facility] NaCl 0.9% (NS) bolus infusion 1,000 mL 2021-05 07:15: 00 02-21 08:40 :00 No 1000mL at 999 mL/hr, 1,000 mL, IV Infusion, ONCE, 1 dose, On Sat02/21/22 at 0215, [facility] proMETHazin e (PHENERGAN) 12.5 mg in NaCl 0.9% (NS) 50 mL IV piggyback 2021-05 06:30: 00 02-21 06:38 :00 No 12.5mg 12.5 mg, IV Piggyback, ONCE, 1 dose, On Sat02/21/22 at 0130, [facility] dexamethaso ne sod phos PF injection 10 mg 2021-05 06:30: 00 02-21 06:38 :00 No 10mg 10 mg, Slow IV Push, ONCE, 1 dose, On Sat02/21/22 at 0130, 1 mL [facility] ketorolac (TORADOL) injection 15 mg 2021-0512 06:30: 00 02-21 06:38 :00 No 15mg 15 mg, Slow IV Push, ONCE, 1 dose, On Sat02/21/22 at 0130, [facility] diphenhydrA MINE (BENADRYL) injection 25 mg 2021-05 06:30: 00 02-21 06:38 :00 No 25mg 25 mg, Slow IV Push, ONCE, 1 dose, On Sat02/21/22 at 0130, STAT [facility] FENTanyl PF (SUBLIMAZE (PF)) injection 50 mcg 2021-05 20:30: 00 02-18 19:44 :00 No 50ug 50 mcg, Slow IV Push, ONCE, 1 dose, On 02/18/22 at 1530, Routine [facility] ketorolac (TORADOL) injection 30 mg 2021-05 20:15: 00 02-18 20:09 :00 No 30mg 30 mg, Slow IV Push, ONCE, 1 dose, On 02/18/22 at 1515, [facility] iopamidol (ISOVUE 370-500 mL) injection 60 mL 2021-05 19:30: 00 02-18 17:30 :00 No [id number] 60mL 60 mL, Intravenou s, ONCE, 1 dose, On 02/18/22 at 1430, Routine [facility] proMETHazin e (PHENERGAN) 12.5 mg in NaCl 0.9% (NS) 50 mL IV piggyback 2021-05 18:15: 00 02-18 18:19 :00 No 12.5mg 12.5 mg, IV Piggyback, ONCE, 1 dose, On Sat02/18/22 at 1315, [place] [facility] FENTanyl PF (SUBLIMAZE (PF)) injection 50 mcg 2021-05 18:00: 00 02-18 17:26 :00 No 50ug 50 mcg, Slow IV Push, ONCE, 1 dose, On Sat02/18/22 at 1300, Routine [facility] ondansetron (ZOFRAN (PF)) injection 4 mg 2021-05 17:15: 00 02-18 17:27 :00 No 4mg 4 mg, Slow IV Push, ONCE, 1 dose, On 02/18/22 at 1215, [facility] morpHINE (2 mg/mL) injection 4 mg 01-18 15:15: 00 01-18 14:49 :00 No 4mg 4 mg, Slow IV Push, ONCE, 1 dose, On Kathie 01/18/22 at 1015, [facility] ondansetron (ZOFRAN (PF)) injection 4 mg 01-18 13:30: 00 01-18 13:33 :00 No 4mg 4 mg, Slow IV Push, ONCE, 1 dose, On Kathie 01/18/22 at 0830, [facility] morpHINE (4 mg/mL) injection 4 mg 01-18 13:30: 00 01-18 13:34 :00 No 4mg 4 mg, Slow IV Push, ONCE, 1 dose, On Kathie 01/18/22 at 0830, [facility] morpHINE (4 mg/mL) injection 4 mg 01-18 12:30: 00 01-18 11:39 :00 No 4mg 4 mg, Slow IV Push, ONCE, 1 dose, On Kathie 01/18/22 at 0730, [facility] famotidine (PEPCID (PF)) injection 20 mg 01-18 11:30: 00 01-18 10:52 :00 No 20mg 20 mg, Slow IV Push, ONCE, 1 dose, On Kathie 01/18/22 at 0630, [facility] ondansetron (ZOFRAN (PF)) injection 4 mg 01-18 11:30: 00 01-18 10:52 :00 No 4mg 4 mg, Slow IV Push, ONCE, 1 dose, On Kathie 01/18/22 at 0630, [facility] iodixanoL (VISIPAQUE 270-150 mL) injection 80 mL 01-18 11:21: 00 01-18 11:15 :00 No [id number] 80mL 80 mL, Intravenou s, ONCE, 1 dose, On Kathie 01/18/22 at 0630, Routine [facility] NaCl 0.9% (NS) bolus infusion 1,000 mL 01-18 11:15: 00 01-18 12:59 :00 No 1000mL at 999 mL/hr, 1,000 mL, IV Infusion, ONCE, 1 dose, On Kathie 01/18/22 at 0615, [place] [facility] morpHINE (4 mg/mL) injection 4 mg 01-18 10:45: 00 01-18 10:52 :00 No 4mg 4 mg, Slow IV Push, ONCE, 1 dose, On Kathie 01/18/22 at 0545, STAT [facility] traMADoL 50 mg tablet 01-18 00:00: 00 02-27 00:00 :00 No [id number] 50mg Take 1 tablet by mouth every 6 (six) hours as needed for Pain (scale 7-10). Indication s: acute pain [facility] ondansetron 4 mg disintegrat ing tablet 01-18 00:00: 00 02-27 00:00 :00 No [id number] 4mg Take 1 tablet by mouth every 8 (eight) hours as needed for Nausea and Vomiting (N/V). [facility] ibuprofen 600 mg tablet 01-18 00:00: 00 02-27 00:00 :00 No [id number] 600mg Take 1 tablet by mouth every 6 (six) hours as needed for Pain (scale 4-6). [facility] predniSONE 20 mg tablet 01-16 00:00: 00 01-24 04:59 :00 No [id number] 40mg Take 2 tablets by mouth in the morning for 7 days. [facility] morpHINE (4 mg/mL) injection 4 mg 01-15 16:15: 00 01-15 15:28 :00 No 4mg 4 mg, Slow IV Push, ONCE, 1 dose, On 01/15/22 at 1115, [place] [facility] proMETHazin e (PHENERGAN) 12.5 mg in NaCl 0.9% (NS) 50 mL IV piggyback 01-15 15:30: 00 01-15 15:28 :00 No 12.5mg 12.5 mg, IV Piggyback, ONCE, 1 dose, On Sat01/15/22 at 1030, [facility] NaCl 0.9% (NS) bolus infusion 1,000 mL 01-15 15:00: 00 01-15 15:38 :00 No 1000mL at 999 mL/hr, 1,000 mL, IV Infusion, ONCE, 1 dose, On Sat01/15/22 at 1000, [facility] morpHINE (4 mg/mL) injection 4 mg 01-15 15:00: 00 01-15 14:37 :00 No 4mg 4 mg, Slow IV Push, ONCE, 1 dose, On Sat01/15/22 at 1000, [facility] ondansetron (ZOFRAN (PF)) injection 8 mg 01-15 14:15: 00 01-15 14:37 :00 No 8mg 8 mg, Slow IV Push, ONCE, 1 dose, On Sat01/15/22 at 0915, [facility] dexamethaso ne sod phos PF injection 10 mg 01-15 14:15: 00 01-15 14:37 :00 No 10mg 10 mg, Slow IV Push, ONCE, 1 dose, On Sat01/15/22 at 0915, 1 mL [facility] proMETHazin e 25 mg tablet 01-15 00:00: 00 02-27 00:00 :00 No [id number] 25mg Take 1 tablet by mouth every 6 (six) hours as needed for Nausea and Vomiting (N/V). [facility] ondansetron (ZOFRAN-ODT ) disintegrat ing tablet 4 mg 01-09 01:45: 00 01-09 00:56 :00 No 4mg 4 mg, Oral, ONCE, 1 dose, On Sat01/08/22 at 2045, Routine [facility] HYDROcodone -acetaminop hen (NORCO 5) 5-325 mg tablet 1 tablet 01-09 00:45: 00 01-09 00:37 :00 No 1{tbl} 1 tablet, Oral, ONCE, 1 dose, On Sat01/08/22 at 1945, [place] [facility] diphenhydrA MINE (BENADRYL) injection 25 mg 01-08 23:45: 01-08 23:51 :00 No 25mg 25 mg, Slow IV Push, ONCE, 1 dose, On Sat01/08/22 at 1845, STAT [facility] dexamethaso ne sod phos PF injection 10 mg 01-08 23:45: 00 01-08 23:50 :00 No 10mg 10 mg, Slow IV Push, ONCE, 1 dose, On Sat01/08/22 at 1845, 1 mL [facility] ketorolac (TORADOL) injection 30 mg 01-08 23:45: 00 01-08 23:51 :00 No 30mg 30 mg, Slow IV Push, ONCE, 1 dose, On Sat01/08/22 at 1845, [place] [facility] acetaminoph en (TYLENOL ARTHRITIS PAIN) 650 mg CR tablet 01-08 00:00: 00 04-07 00:00 :00 No [id number] 650mg Take 1 tablet by mouth every 8 (eight) hours as needed for Pain. [facility] ondansetron 4 mg disintegrat ing tablet 01-08 00:00: 00 02-27 00:00 :00 No [id number] 4mg Take 1 tablet by mouth every 8 (eight) hours as needed for Nausea and Vomiting (N/V). [facility] ketorolac 10 mg tablet 01-08 00:00: 00 02-27 00:00 :00 No [id number] 10mg Take 1 tablet by mouth every 6 (six) hours as needed for Pain (scale 4-6) or Pain (scale 7-10). [facility] metaxalone (SKELAXIN) 800 mg tablet 829 00:00: 00 02-27 00:00 :00 No [id number] 800mg Take 1 tablet by mouth in the morning and 1 tablet at noon and 1 tablet in the evening. [facility] metroNIDAZO LE 500 mg tablet 12-18 00:00: 00 02-27 00:00 :00 No 500mg Take 1 tablet by mouth every 12 (twelve) hours. [facility] trazodone/d ietary supp. no.8 (TRAZAMINE ORAL) 12-12 15:08: 46 12-12 00:00 :00 No Take by mouth. [facility] diphenhydrA MINE 25 mg capsule 12-12 13:03: 04 Yes 25mg Take 25 mg by mouth every 6 (six) hours as needed for Allergies. [facility] carbamazepi ne (TEGRETOL ORAL) 12-12 13:03: 04 Yes Take by mouth. [facility] traZODone 50 mg tablet 12-12 00:00: 00 02-27 00:00 :00 No [id number] 50mg Take 1 tablet by mouth at bedtime. [facility] SERTraline (ZOLOFT) 50 mg tablet 12-12 00:00: 00 02-27 00:00 :00 No [id number] 50mg Take 1 tablet by mouth in the morning. [facility] sulfamethox azole-trime thoprim (BACTRIM DS) 800-160 mg per tablet 12-12 00:00: 00 12-16 04:59 :00 No [id number] 1{tbl} Take 1 tablet by mouth in the morning and 1 tablet in the evening. Do all this for 3 days. [facility] ibuprofen 600 mg tablet 7-15 00:00: 00 02-27 00:00 :00 No [id number] 600mg Take 1 tablet by mouth every 6 (six) hours as needed for Pain (scale 4-6). [facility] acetaminoph en-codeine 300-30 mg tablet 11-24 00:00: 00 12-12 00:00 :00 No [id number] 1{tbl} Take 1 tablet by mouth every 4 (four) hours as needed for Pain (scale 4-6). Indication s: acute pain [facility] bromphenira mine-pseudo ephedrine-D M (BROMFED DM) 2-30-10 mg/5 mL syrup 11-18 00:00: 00 03-24 00:00 :00 No [id number] 5mL Take 5 mL by mouth 4 (four) times daily as needed for Congestion /Allergies or Cough. [facility] naproxen 500 mg tablet 11-18 00:00: 00 02-27 00:00 :00 No [id number] 500mg Take 1 tablet by mouth every 8 (eight) hours as needed for Pain (scale 4-6). [facility] cyclobenzap rine 10 mg tablet 11-18 00:00: 00 02-27 00:00 :00 No [id number] 10mg Take 1 tablet by mouth at bedtime as needed for Muscle Spasms. [facility] ibuprofen 100 mg/5 mL oral suspension 10-25 00:00: 00 02-27 00:00 :00 No [id number] 605mg Take 30.25 mL by mouth every 6 (six) hours as needed for Pain (scale 4-6) or Temp > 38.5 C. [facility] acetaminoph en 160 mg/5 mL liquid 10-25 00:00: 00 12-12 00:00 :00 No [id number] 608mg Take 19 mL by mouth every 6 (six) hours as needed for Fever. [facility] DULoxetine 60 mg capsule 10-06 00:00: 00 02-27 00:00 :00 No [facility] traZODone 50 mg tablet 10-06 00:00: 00 12-12 00:00 :00 No [facility] mometasone 50 mcg/actuati on nasal spray 09-28 00:00: 00 02-27 00:00 :00 No [id number] 1{spray } Use 1 [place] in each nostril 2 (two) times daily. [facility] cetirizine (ZYRTEC) 10 mg tablet 09-25 00:00: 00 02-27 00:00 :00 No [id number] 10mg Take 1 tablet by mouth daily. [facility] DULoxetine 30 mg capsule 09-18 00:00: 00 02-27 00:00 :00 No [facility] gabapentin 300 mg capsule 09-18 00:00: 00 02-27 00:00 :00 No [facility] ondansetron 4 mg tablet 09-18 00:00: 00 02-27 00:00 :00 No [facility] amLODIPine 5 mg tablet 09-01 00:00: 00 02-27 00:00 :00 No 5mg Take 5 mg by mouth. [facility] buPROPion XL 150 mg 24 hr tablet -20 00:00: 00 02-27 00:00 :00 No 150mg Take 150 mg by mouth. [facility] proMETHazin e 25 mg tablet 4-05 00:00: 00 09-12 00:00 :00 No [id number] 25mg Take 1 tablet by mouth every 6 (six) hours as needed for Nausea and Vomiting (N/V). [facility] traMADoL 50 mg tablet 4-05 00:00: 00 09-12 00:00 :00 No [id number] 50mg Take 1 tablet by mouth every 6 (six) hours as needed (pain). Indication s: acute pain [facility] cyclobenzap rine 10 mg tablet 3-28 00:00: 00 08-22 04:59 :00 No [id number] 10mg Take 1 tablet by mouth 3 (three) times daily for 14 days. [facility] ibuprofen 800 mg tablet 3-28 00:00: 00 08-22 04:59 :00 No [id number] 800mg Take 1 tablet by mouth every 6 (six) hours as needed for Pain (scale 1-3) for up to 14 days. [facility] diclofenac 75 mg EC tablet 08-01 00:00: 00 09-12 00:00 :00 No [facility] orphenadrin e 100 mg SR tablet 08-01 00:00: 00 09-12 00:00 :00 No [facility] divalproex 125 mg EC tablet 3 00:00: 00 09-12 00:00 :00 No [id number] 125mg Take 1 tablet by mouth every 12 (twelve) hours. [facility] divalproex Sprinkles 125 mg SPRINKLE capsule 3 00:00: 00 09-12 00:00 :00 No [facility] ibuprofen 600 mg tablet 3-07 00:00: 00 08-01 04:59 :00 No [id number] 600mg Take 1 tablet by mouth every 6 (six) hours as needed for Temp > 38.5 C for up to 14 days. [facility] acetaminoph en-codeine 300-30 mg tablet 1-30 00:00: 00 09-12 00:00 :00 No TAKE 1 TABLET BY MOUTH EVERY 4 HOURS NEEDED FOR PAIN FOR 2 DAYS [facility] fluticasone propionate 110 mcg/actuati on inhaler - 00:00: 00 09-28 00:00 :00 No [id number] 2{puff} Inhale 2 Puffs every 12 (twelve) hours. [facility] benzonatate (TESSALON PERLES) 100 mg capsule 1-13 00:00: 00 09-25 00:00 :00 No [id number] 100mg Take 1 capsule by mouth every 8 (eight) hours as needed for Cough. [facility] carvediloL 25 mg tablet 2020-05 00:00: 00 02-27 00:00 :00 No 25mg Take 1 tablet by mouth 2 (two) times daily with meals. [facility] losartan 50 mg tablet 2020-05 00:00: 00 02-27 00:00 :00 No 50mg Take 1 tablet by mouth 2 (two) times daily. [facility] proMETHazin e 25 mg tablet 2020-05 00:00: 00 09-12 00:00 :00 No [facility] methocarbam oL (ROBAXIN) 500 mg tablet 2020-05 00:00: 00 05-25 00:00 :00 No [id number] 500mg Take 1 tablet by mouth every 6 (six) hours as needed (MUSCLE SPASM). [facility] vitamin B-12 (VITAMIN B-12) 500 mcg tablet 2020-05 00:00: 00 09-12 00:00 :00 No [id number] 500ug Take 1 tablet by mouth daily. [facility] methylPREDN ISolone 4 mg tablets 2020-05 00:00: 00 05-25 00:00 :00 No [id number] Follow package directions [facility] fluticasone propion-chel meteroL 115-21 mcg/actuati on inhaler 02-09 00:00: 00 05-25 00:00 :00 No [id number] 2{puff} Inhale 2 Puffs 2 (two) times daily. Rinse mouth after each use. [facility] albuterol 2.5 mg /3 mL (0.083 %) nebulizer solution 02-09 00:00: 00 05-25 00:00 :00 No [id number] 2.5mg Inhale 3 mL every 6 (six) hours as needed for Wheezing or Shortness of Breath. [facility] methocarbam oL (ROBAXIN) 500 mg tablet 02-09 00:00: 00 05-02 00:00 :00 No [id number] 500mg Take 1 tablet by mouth every 6 (six) hours as needed (MUSCLE SPASM). [facility] bromphenira mine-pseudo ephedrine-D M (BROMFED DM) 2-30-10 mg/5 mL syrup 01-31 00:00: 00 02-09 00:00 :00 No [id number] 5mL Take 5 mL by mouth 4 (four) times daily as needed for Cough. [facility] methylPREDN ISolone (MEDROL, ANABELA,) 4 mg tablets 01-20 00:00: 00 02-09 00:00 :00 No [id number] Take by mouth SEE-INSTRU CTIONS. follow package directions [facility] albuterol 90 mcg/actuati on inhaler 01-12 00:00: 00 05-25 00:00 :00 No [id number] 2{puff} Inhale 2 Puffs every 4 (four) hours as needed for Wheezing or Shortness of Breath. [facility] benzonatate 100 mg capsule 01-12 00:00: 00 02-19 00:00 :00 No [id number] 100mg Take 1 capsule by mouth 3 (three) times daily as needed for Cough. [facility] losartan 50 mg tablet 8 00:00: 00 02-09 00:00 :00 No 50mg Take 1 tablet by mouth 2 (two) times daily. [facility] topiramate 25 mg tablet 11-22 00:00: 00 12-26 00:00 :00 No 25mg Take 1 tablet by mouth 2 (two) times daily. [facility] OXcarbazepi ne 150 mg tablet 11-21 00:00: 00 02-09 00:00 :00 No [facility] FLUoxetine 40 mg capsule 11-21 00:00: 00 12-26 00:00 :00 No [facility] traZODone 100 mg tablet 7-12 00:00: 00 12-26 00:00 :00 No [facility] dicyclomine 20 mg tablet 6-10 00:00: 00 12-26 00:00 :00 No [id number] 20mg Take 1 tablet by mouth 4 (four) times daily. [facility] proMETHazin e 25 mg tablet 6-10 00:00: 00 12-26 00:00 :00 No [id number] 25mg Take 1 tablet by mouth every 6 (six) hours as needed for Nausea and Vomiting (N/V). [facility] acetaminoph en-codeine 300-30 mg tablet 605 00:00: 00 12-26 00:00 :00 No TAKE 2 TABLETS BY MOUTH EVERY 6 HOURS NEEDED FOR PAIN [facility] oxybutynin (DITROPAN XL) 10 mg 24 hr tablet 30 00:00: 00 12-26 00:00 :00 No [id number] 10mg Take 1 tablet by mouth daily. [facility] ondansetron (ZOFRAN ODT) 4 mg disintegrat ing tablet 30 00:00: 00 12-26 00:00 :00 No [id number] 4mg Take 1 tablet by mouth every 8 (eight) hours as needed for Nausea and Vomiting (N/V). [facility] ciprofloxac in HCl 500 mg tablet 530 00:00: 00 11-22 00:00 :00 No [id number] 500mg Take 1 tablet by mouth 2 (two) times daily. [facility] predniSONE 20 mg tablet 25 00:00: 00 11-22 00:00 :00 No [id number] 20mg Take 1 tablet by mouth daily. Days 1-2: 3 pills (60 mg). Days 3-4: 2 pills (40 mg). Days 5-6: 1 pill (20 mg). Days 7-8: 1/2 pill (10 mg). Then stop [facility] mupirocin 2 % ointment 09-29 00:00: 00 12-26 00:00 :00 No [id number] Apply to both nostrils at bedtime [facility] naproxen sodium (ANAPROX DS) 550 mg tablet 09-28 00:00: 00 12-26 00:00 :00 No [id number] 550mg Take 1 tablet by mouth 2 (two) times daily with meals. [facility] losartan 25 mg tablet 09-16 00:00: 00 12-22 00:00 :00 No 25mg Take 1 tablet by mouth 2 (two) times daily. [facility] nadoloL 20 mg tablet 09-16 00:00: 00 12-22 00:00 :00 No [id number] Please take Nadalol 40 mg QAM [facility] LOESTRIN FE (LOESTRIN FE /20) 1 mg-20 mcg (21)/75 mg (7) tablet 09-06 00:00: 00 02-09 00:00 :00 No [id number] 1{tbl} Take 1 tablet by mouth daily. [facility] FLUoxetine 20 mg capsule 09-06 00:00: 00 11-22 00:00 :00 No [id number] 20mg Take 1 capsule by mouth daily. [facility] traZODone 50 mg tablet 09-06 00:00: 00 11-22 00:00 :00 No [id number] 50mg Take 1 tablet by mouth at bedtime. [facility] nadoloL 20 mg tablet 08-31 00:00: 00 09-16 00:00 :00 No [id number] Please take Nadalol 40 mg QAM and 20 mg QPM [facility] methocarbam oL (ROBAXIN) 500 mg tablet 08-18 00:00: 00 09-30 00:00 :00 No [id number] 500mg Take 1 tablet by mouth every 6 (six) hours as needed (MUSCLE SPASM). [facility] traMADoL (ULTRAM) 50 mg tablet 08-18 00:00: 00 09-30 00:00 :00 No [id number] 50mg Take 1 tablet by mouth every 6 (six) hours as needed for Pain (scale 7-10). Indication s: acute pain [facility] ibuprofen 800 mg tablet 08-14 00:00: 00 11-22 00:00 :00 No TAKE 1 TABLET BY MOUTH EVERY 12 HOURS NEEDED FOR PAIN [facility] ondansetron (ZOFRAN ODT) 4 mg disintegrat ing tablet 08-01 00:00: 00 09-30 00:00 :00 No [id number] 4mg Take 1 tablet by mouth every 8 (eight) hours as needed for Nausea and Vomiting (N/V). [facility] ketorolac 10 mg tablet 08-01 00:00: 00 09-30 00:00 :00 No [id number] 10mg Take 1 tablet by mouth every 6 (six) hours as needed for Pain (scale 4-6). [facility] ciprofloxac in HCl 250 mg tablet 08-01 00:00: 00 09-30 00:00 :00 No [id number] 250mg Take 1 tablet by mouth 2 (two) times daily. [facility] lidocaine 5 % (700 mg/patch) patch 07-22 00:00: 00 09-30 00:00 :00 No [id number] 1{patch } Apply 1 Patch to area(s) every 24 (twenty-fo ur) hours as needed for Localized pain. [facility] topiramate 25 mg tablet 05-17 00:00: 00 11-22 00:00 :00 No 25mg Take 1 tablet by mouth 2 (two) times daily. [facility] metoprolol succinate XL 25 mg 24 hr tablet 2019-05 00:00: 00 06-15 00:00 :00 No [id number] 12.5mg Take 0.5 tablets by mouth 2 (two) times daily for 90 days. [facility] FLUoxetine 20 mg capsule 2019-05 00:00: 00 09-06 00:00 :00 No 20mg Take 20 mg by mouth daily. [facility] norgestimat e-ethinyl estradiol 0.25-35 mg-mcg per tablet 11-17 00:00: 04-15 00:00 :00 No [id number] 1{tbl} Take 1 tablet by mouth daily. [facility] buPROPion XL (WELLBUTRIN XL) 150 mg 24 hr tablet 08-12 00:00: 01-04 00:00 :00 No [id number] 150mg Take 1 tablet by mouth daily. [facility] acetaminoph en 325 mg tablet 07-22 00:00: 01-04 00:00 :00 No [id number] 650mg Take 2 tablets by mouth every 6 (six) hours as needed for Pain (scale 1-3) or Pain (scale 4-6). [facility] vitamin w/FA tablet 07-22 00:00: 01-04 00:00 :00 No [id number] 1{tbl} Take 1 tablet by mouth daily. [facility] docusate calcium 240 mg capsule 07-22 00:00: 01-04 00:00 :00 No [id number] 240mg Take 1 capsule by mouth once daily as needed for Constipati on. [facility] ferrous sulfate 325 mg (65 mg iron) tablet 07-22 00:00: 01-04 00:00 :00 No [id number] 325mg Take 1 tablet by mouth 2 (two) times daily. [facility] ibuprofen 600 mg tablet 07-22 00:00: 01-04 00:00 :00 No [id number] 600mg Take 1 tablet by mouth every 6 (six) hours as needed (Pain). Take with food or milk. [facility] ALBUTEROL 90 mcg/actuati on inhaler 1-14 00:00: 00 05-01 00:00 :00 No [id number] 103 INHALE 2 PUFFS BY MOUTH EVERY 6 HOURS NEEDED FOR WHEEZING FOR SHORTNESS OF BREATH [facility] buPROPion SR (WELLBUTRIN SR) 150 mg SR tablet 05-21 00:00: 00 01-04 00:00 :00 No [id number] 150mg Take 1 tablet by mouth 2 (two) times daily. [facility] busPIRone 10 mg tablet 05-21 00:00: 00 01-04 00:00 :00 No [id number] 109 10mg Take 1 tablet by mouth 3 (three) times daily. [facility] Immunizations Ordered Immunization Name Filled Immunization Name Date Status Comments Source Influenza Virus Vaccine Quad IM, Preserv and ABX Free 6 MO-64 YRS 2022-02-27 00:00:00 Completed [facility] Influenza Virus Vaccine Quad IM, Preserv and ABX Free 6 MO-64 YRS 2022-02-27 00:00:00 Completed [facility] Influenza Virus Vaccine Quad IM, Preserv and ABX Free 6 MO-64 YRS 2022-02-27 00:00:00 Completed [facility] Influenza Virus Vaccine Quad IM, Preserv and ABX Free 6 MO-64 YRS 2022-02-27 00:00:00 Completed [facility] Influenza Virus Vaccine Quad IM, Preserv and ABX Free 6 MO-64 YRS 2022-02-27 00:00:00 Completed [facility] Influenza Virus Vaccine Quad IM, Preserv and ABX Free 6 MO-64 YRS 2022-02-27 00:00:00 Completed [facility] Influenza Virus Vaccine Quad IM, Preserv and ABX Free 6 MO-64 YRS 2022-02-27 00:00:00 Completed [facility] Influenza Virus Vaccine Quad IM, Preserv and ABX Free 6 MO-64 YRS 2022-02-27 00:00:00 Completed [facility] Influenza Virus Vaccine Quad IM, Preserv and ABX Free 6 MO-64 YRS 2022-02-27 00:00:00 Completed [facility] Influenza Virus Vaccine Quad IM, Preserv and ABX Free 6 MO-64 YRS 2022-02-27 00:00:00 Completed [facility] Influenza Virus Vaccine Quad IM, Preserv and ABX Free 6 MO-64 YRS 2022-02-27 00:00:00 Completed [facility] Influenza Virus Vaccine Quad IM, Preserv and ABX Free 6 MO-64 YRS 2022-02-27 00:00:00 Completed [facility] Influenza Virus Vaccine Quad IM, Preserv and ABX Free 6 MO-64 YRS 2022-02-27 00:00:00 Completed [facility] Influenza Virus Vaccine Quad IM, Preserv and ABX Free 6 MO-64 YRS 2022-02-27 00:00:00 Completed [facility] Influenza Virus Vaccine Quad IM, Preserv and ABX Free 6 MO-64 YRS 2022-02-27 00:00:00 Completed [facility] Influenza Virus Vaccine Quad IM, Preserv and ABX Free 6 MO-64 YRS 2022-02-27 00:00:00 Completed [facility] Influenza Virus Vaccine Quad IM, Preserv and ABX Free 6 MO-64 YRS 2022-02-27 00:00:00 Completed [facility] Influenza Virus Vaccine Quad IM, Preserv and ABX Free 6 MO-64 YRS 2022-02-27 00:00:00 Completed [facility] Influenza Virus Vaccine Quad IM, Preserv and ABX Free 6 MO-64 YRS 2022-02-27 00:00:00 Completed [facility] Influenza Virus Vaccine Quad IM, Preserv and ABX Free 6 MO-64 YRS 2022-02-27 00:00:00 Completed [facility] Influenza Virus Vaccine Quad IM, Preserv and ABX Free 6 MO-64 YRS 2022-02-27 00:00:00 Completed [facility] Influenza Virus Vaccine Quad IM, Preserv and ABX Free 6 MO-64 YRS 2022-02-27 00:00:00 Completed [facility] Influenza Virus Vaccine Quad IM, Preserv and ABX Free 6 MO-64 YRS 2022-02-27 00:00:00 Completed [facility] Influenza Virus Vaccine Quad IM, Preserv and ABX Free 6 MO-64 YRS 2022-02-27 00:00:00 Completed [facility] Influenza Virus Vaccine Quad IM, Preserv and ABX Free 6 MO-64 YRS 2022-02-27 00:00:00 Completed [facility] Influenza Virus Vaccine Quad IM, Preserv and ABX Free 6 MO-64 YRS 2022-02-27 00:00:00 Completed [facility] Influenza Virus Vaccine Quad IM, Preserv and ABX Free 6 MO-64 YRS 2022-02-27 00:00:00 Completed [facility] Influenza Virus Vaccine Quad IM, Preserv and ABX Free 6 MO-64 YRS 2022-02-27 00:00:00 Completed [facility] Influenza Virus Vaccine Quad IM, Preserv and ABX Free 6 MO-64 YRS 2022-02-27 00:00:00 Completed [facility] Influenza Virus Vaccine Quad IM, Preserv and ABX Free 6 MO-64 YRS 2022-02-27 00:00:00 Completed [facility] Influenza Virus Vaccine Quad IM, Preserv and ABX Free 6 MO-64 YRS 2022-02-27 00:00:00 Completed [facility] Influenza Virus Vaccine Quad IM, Preserv and ABX Free 6 MO-64 YRS 2022-02-27 00:00:00 Completed [facility] Influenza Virus Vaccine Quad IM, Preserv and ABX Free 6 MO-64 YRS 2022-02-27 00:00:00 Completed [facility] Influenza Virus Vaccine Quad IM, Preserv and ABX Free 6 MO-64 YRS 2022-02-27 00:00:00 Completed [facility] Influenza Virus Vaccine Quad IM, Preserv and ABX Free 6 MO-64 YRS 2022-02-27 00:00:00 Completed [facility] Influenza Virus Vaccine Quad IM, Preserv and ABX Free 6 MO-64 YRS 2022-02-27 00:00:00 Completed [facility] Influenza Virus Vaccine Quad IM, Preserv and ABX Free 6 MO-64 YRS 2022-02-27 00:00:00 Completed [facility] Influenza Virus Vaccine Quad IM, Preserv and ABX Free 6 MO-64 YRS 2022-02-27 00:00:00 Completed [facility] Influenza Virus Vaccine Quad IM, Preserv and ABX Free 6 MO-64 YRS 2022-02-27 00:00:00 Completed [facility] Influenza Virus Vaccine Quad IM, Preserv and ABX Free 6 MO-64 YRS 2022-02-27 00:00:00 Completed [facility] Influenza Virus Vaccine Quad IM, Preserv and ABX Free 6 MO-64 YRS 2022-02-27 00:00:00 Completed [facility] Influenza Virus Vaccine Quad IM, Preserv and ABX Free 6 MO-64 YRS (FLUCELVAX) 2022-02-27 00:00:00 Completed [facility] Influenza Virus Vaccine Quad IM, Preserv and ABX Free 6 MO-64 YRS (FLUCELVAX) 2022-02-27 00:00:00 Completed [facility] Influenza Virus Vaccine Quad IM, Preserv and ABX Free 6 MO-64 YRS (FLUCELVAX) 2022-02-27 00:00:00 Completed [facility] Influenza Virus Vaccine Quad .5 mL IM 6+ MO 2022-02-21 00:00:00 Completed [facility] Influenza Virus Vaccine Quad .5 mL IM 6+ MO 2022-02-21 00:00:00 Completed [facility] Influenza Virus Vaccine Quad .5 mL IM 6+ MO 2022-02-21 00:00:00 Completed [facility] Influenza Virus Vaccine Quad .5 mL IM 6+ MO 2022-02-21 00:00:00 Completed [facility] Influenza Virus Vaccine Quad .5 mL IM 6+ MO 2022-02-21 00:00:00 Completed [facility] Influenza Virus Vaccine Quad .5 mL IM 6+ MO 2022-02-21 00:00:00 Completed [facility] Influenza Virus Vaccine Quad .5 mL IM 6+ MO 2022-02-21 00:00:00 Completed [facility] Influenza Virus Vaccine Quad .5 mL IM 6+ MO 2022-02-21 00:00:00 Completed [facility] Influenza Virus Vaccine Quad .5 mL IM 6+ MO 2022-02-21 00:00:00 Completed [facility] Influenza Virus Vaccine Quad .5 mL IM 6+ MO 2022-02-21 00:00:00 Completed [facility] Influenza Virus Vaccine Quad .5 mL IM 6+ MO 2022-02-21 00:00:00 Completed [facility] Influenza Virus Vaccine Quad .5 mL IM 6+ MO 2022-02-21 00:00:00 Completed [facility] Influenza Virus Vaccine Quad .5 mL IM 6+ MO (FLUZONE/FLULAVAL/F LUARIX) 2022-02-21 00:00:00 Completed [facility] Influenza Virus Vaccine Quad .5 mL IM 6+ MO (FLUZONE/FLULAVAL/F LUARIX) 2022-02-21 00:00:00 Completed [facility] Influenza Virus Vaccine Quad .5 mL IM 6+ MO (FLUZONE/FLULAVAL/F LUARIX) 2022-02-21 00:00:00 Completed [facility] Influenza Virus Vaccine 2021-06-11 00:00:00 Completed [facility] Influenza Virus Vaccine 2021-06-11 00:00:00 Completed [facility] Influenza Virus Vaccine 2021-06-11 00:00:00 Completed [facility] Influenza Virus Vaccine 2021-06-11 00:00:00 Completed [facility] Influenza Virus Vaccine 2021-06-11 00:00:00 Completed [facility] Influenza Virus Vaccine 2021-06-11 00:00:00 Completed [facility] Influenza Virus Vaccine 2021-06-11 00:00:00 Completed [facility] Influenza Virus Vaccine 2021-06-11 00:00:00 Completed [facility] Influenza Virus Vaccine 2021-06-11 00:00:00 Completed [facility] Influenza Virus Vaccine 2021-06-11 00:00:00 Completed [facility] Influenza Virus Vaccine 2021-06-11 00:00:00 Completed [facility] Influenza Virus Vaccine 2021-06-11 00:00:00 Completed [facility] Influenza Virus Vaccine 2021-06-11 00:00:00 Completed [facility] Influenza Virus Vaccine 2021-06-11 00:00:00 Completed [facility] Influenza Virus Vaccine 2021-06-11 00:00:00 Completed [facility] Influenza Virus Vaccine 2021-06-11 00:00:00 Completed [facility] Influenza Virus Vaccine 2021-06-11 00:00:00 Completed [facility] Influenza Virus Vaccine 2021-06-11 00:00:00 Completed [facility] Influenza Virus Vaccine 2021-06-11 00:00:00 Completed [facility] Influenza Virus Vaccine 2021-06-11 00:00:00 Completed [facility] Influenza Virus Vaccine 2021-06-11 00:00:00 Completed [facility] Influenza Virus Vaccine 2021-06-11 00:00:00 Completed [facility] Influenza Virus Vaccine 2021-06-11 00:00:00 Completed [facility] Influenza Virus Vaccine 2021-06-11 00:00:00 Completed [facility] Influenza Virus Vaccine 2021-06-11 00:00:00 Completed [facility] Influenza Virus Vaccine 2021-06-11 00:00:00 Completed [facility] Influenza Virus Vaccine 2021-06-11 00:00:00 Completed [facility] Influenza Virus Vaccine 2021-06-11 00:00:00 Completed [facility] Influenza Virus Vaccine 2021-06-11 00:00:00 Completed [facility] Influenza Virus Vaccine 2021-06-11 00:00:00 Completed [facility] Influenza Virus Vaccine 2021-06-11 00:00:00 Completed [facility] Influenza Virus Vaccine 2021-06-11 00:00:00 Completed [facility] Influenza Virus Vaccine 2021-06-11 00:00:00 Completed [facility] Influenza Virus Vaccine 2021-06-11 00:00:00 Completed [facility] Influenza Virus Vaccine 2021-06-11 00:00:00 Completed [facility] Influenza Virus Vaccine 2021-06-11 00:00:00 Completed [facility] Influenza Virus Vaccine 2021-06-11 00:00:00 Completed [facility] Influenza Virus Vaccine 2021-06-11 00:00:00 Completed [facility] Influenza Virus Vaccine 2021-06-11 00:00:00 Completed [facility] Influenza Virus Vaccine 2021-06-11 00:00:00 Completed [facility] Influenza Virus Vaccine 2021-06-11 00:00:00 Completed [facility] Influenza Virus Vaccine Quad .5 mL IM 6+ MO 2021-06-11 00:00:00 Completed [facility] Influenza Virus Vaccine 2021-06-11 00:00:00 Completed [facility] Influenza Virus Vaccine Quad .5 mL IM 6+ MO 2021-06-11 00:00:00 Completed [facility] Influenza Virus Vaccine 2021-06-11 00:00:00 Completed [facility] Influenza Virus Vaccine Quad .5 mL IM 6+ MO 2021-06-11 00:00:00 Completed [facility] Influenza Virus Vaccine 2021-06-11 00:00:00 Completed [facility] Influenza Virus Vaccine Quad .5 mL IM 6+ MO 2021-06-11 00:00:00 Completed [facility] Influenza Virus Vaccine 2021-06-11 00:00:00 Completed [facility] Influenza Virus Vaccine Quad .5 mL IM 6+ MO 2021-06-11 00:00:00 Completed [facility] Influenza Virus Vaccine 2021-06-11 00:00:00 Completed [facility] Influenza Virus Vaccine Quad .5 mL IM 6+ MO 2021-06-11 00:00:00 Completed [facility] Influenza Virus Vaccine 2021-06-11 00:00:00 Completed [facility] Influenza Virus Vaccine Quad .5 mL IM 6+ MO 2021-06-11 00:00:00 Completed [facility] Influenza Virus Vaccine 2021-06-11 00:00:00 Completed [facility] Influenza Virus Vaccine Quad .5 mL IM 6+ MO 2021-06-11 00:00:00 Completed [facility] Influenza Virus Vaccine 2021-06-11 00:00:00 Completed [facility] Influenza Virus Vaccine Quad .5 mL IM 6+ MO 2021-06-11 00:00:00 Completed [facility] Influenza Virus Vaccine 2021-06-11 00:00:00 Completed [facility] Influenza Virus Vaccine Quad .5 mL IM 6+ MO 2021-06-11 00:00:00 Completed [facility] Influenza Virus Vaccine 2021-06-11 00:00:00 Completed [facility] Influenza Virus Vaccine Quad .5 mL IM 6+ MO 2021-06-11 00:00:00 Completed [facility] Influenza Virus Vaccine 2021-06-11 00:00:00 Completed [facility] Influenza Virus Vaccine Quad .5 mL IM 6+ MO 2021-06-11 00:00:00 Completed [facility] Influenza Virus Vaccine 2021-06-11 00:00:00 Completed [facility] Influenza Virus Vaccine Quad .5 mL IM 6+ MO (FLUZONE/FLULAVAL/F LUARIX) 2021-06-11 00:00:00 Completed [facility] Influenza Virus Vaccine 2021-06-11 00:00:00 Completed [facility] Influenza Virus Vaccine Quad .5 mL IM 6+ MO (FLUZONE/FLULAVAL/F LUARIX) 2021-06-11 00:00:00 Completed [facility] Influenza Virus Vaccine 2021-06-11 00:00:00 Completed [facility] Influenza Virus Vaccine Quad .5 mL IM 6+ MO (FLUZONE/FLULAVAL/F LUARIX) 2021-06-11 00:00:00 Completed [facility] Influenza Virus Vaccine 2020-05-19 00:00:00 Completed [facility] Influenza Virus Vaccine 2020-05-19 00:00:00 Completed [facility] Influenza Virus Vaccine 2020-05-19 00:00:00 Completed [facility] Influenza Virus Vaccine 2020-05-19 00:00:00 Completed [facility] Influenza Virus Vaccine 2020-05-19 00:00:00 Completed [facility] Influenza Virus Vaccine 2020-05-19 00:00:00 Completed [facility] Influenza Virus Vaccine 2020-05-19 00:00:00 Completed [facility] Influenza Virus Vaccine 2020-05-19 00:00:00 Completed [facility] Influenza Virus Vaccine 2020-05-19 00:00:00 Completed [facility] Influenza Virus Vaccine 2020-05-19 00:00:00 Completed [facility] Influenza Virus Vaccine 2020-05-19 00:00:00 Completed [facility] Influenza Virus Vaccine 2020-05-19 00:00:00 Completed [facility] Influenza Virus Vaccine 2020-05-19 00:00:00 Completed [facility] Influenza Virus Vaccine 2020-05-19 00:00:00 Completed [facility] Influenza Virus Vaccine 2020-05-19 00:00:00 Completed [facility] Influenza Virus Vaccine 2020-05-19 00:00:00 Completed [facility] Influenza Virus Vaccine 2020-05-19 00:00:00 Completed [facility] Influenza Virus Vaccine 2020-05-19 00:00:00 Completed [facility] Influenza Virus Vaccine 2020-05-19 00:00:00 Completed [facility] Influenza Virus Vaccine 2020-05-19 00:00:00 Completed [facility] Influenza Virus Vaccine 2020-05-19 00:00:00 Completed [facility] Influenza Virus Vaccine 2020-05-19 00:00:00 Completed [facility] Influenza Virus Vaccine 2020-05-19 00:00:00 Completed [facility] Influenza Virus Vaccine 2020-05-19 00:00:00 Completed [facility] Influenza Virus Vaccine 2020-05-19 00:00:00 Completed [facility] Influenza Virus Vaccine 2020-05-19 00:00:00 Completed [facility] Influenza Virus Vaccine 2020-05-19 00:00:00 Completed [facility] Influenza Virus Vaccine 2020-05-19 00:00:00 Completed [facility] [facility] Virus Vaccine 2020-05-19 00:00:00 Completed [facility] Influenza Virus Vaccine 2020-05-19 00:00:00 Completed [facility] Influenza Virus Vaccine 2020-05-19 00:00:00 Completed [facility] Influenza Virus Vaccine 2020-05-19 00:00:00 Completed [facility] Influenza Virus Vaccine 2020-05-19 00:00:00 Completed [facility] Influenza Virus Vaccine 2020-05-19 00:00:00 Completed [facility] Influenza Virus Vaccine 2020-05-19 00:00:00 Completed [facility] Influenza Virus Vaccine 2020-05-19 00:00:00 Completed [facility] Influenza Virus Vaccine 2020-05-19 00:00:00 Completed [facility] Influenza Virus Vaccine 2020-05-19 00:00:00 Completed [facility] Influenza Virus Vaccine 2020-05-19 00:00:00 Completed [facility] Influenza Virus Vaccine 2020-05-19 00:00:00 Completed [facility] Influenza Virus Vaccine 2020-05-19 00:00:00 Completed [facility] Influenza Virus Vaccine 2020-05-19 00:00:00 Completed [facility] Influenza Virus Vaccine 2020-05-19 00:00:00 Completed [facility] Influenza Virus Vaccine 2020-05-19 00:00:00 Completed [facility] Influenza Virus Vaccine 2020-05-19 00:00:00 Completed [facility] Influenza Virus Vaccine 2020-05-19 00:00:00 Completed [facility] Influenza Virus Vaccine 2020-05-19 00:00:00 Completed [facility] Influenza Virus Vaccine 2020-05-19 00:00:00 Completed [facility] Influenza Virus Vaccine 2020-05-19 00:00:00 Completed [facility] Influenza Virus Vaccine 2020-05-19 00:00:00 Completed [facility] Influenza Virus Vaccine 2020-05-19 00:00:00 Completed [facility] Influenza Virus Vaccine 2020-05-19 00:00:00 Completed [facility] Influenza Virus Vaccine 2020-05-19 00:00:00 Completed [facility] Influenza Virus Vaccine 2020-05-19 00:00:00 Completed [facility] Influenza Virus Vaccine 2020-05-19 00:00:00 Completed [facility] Influenza Virus Vaccine Recomb Quad IM, Preserv and ABX Free 18-64 YRS 2020-05-16 00:00:00 Completed [facility] Influenza Virus Vaccine Recomb Quad IM, Preserv and ABX Free 18-64 YRS 2020-05-16 00:00:00 Completed [facility] Influenza Virus Vaccine Recomb Quad IM, Preserv and ABX Free 18-64 YRS 2020-05-16 00:00:00 Completed [facility] Influenza Virus Vaccine Recomb Quad IM, Preserv and ABX Free 18-64 YRS 2020-05-16 00:00:00 Completed [facility] Influenza Virus Vaccine Recomb Quad IM, Preserv and ABX Free 18-64 YRS 2020-05-16 00:00:00 Completed [facility] Influenza Virus Vaccine Recomb Quad IM, Preserv and ABX Free 18-64 YRS 2020-05-16 00:00:00 Completed [facility] Influenza Virus Vaccine Recomb Quad IM, Preserv and ABX Free 18-64 YRS 2020-05-16 00:00:00 Completed [facility] Influenza Virus Vaccine Recomb Quad IM, Preserv and ABX Free 18-64 YRS 2020-05-16 00:00:00 Completed [facility] Influenza Virus Vaccine Recomb Quad IM, Preserv and ABX Free 18-64 YRS 2020-05-16 00:00:00 Completed [facility] Influenza Virus Vaccine Recomb Quad IM, Preserv and ABX Free 18-64 YRS 2020-05-16 00:00:00 Completed [facility] Influenza Virus Vaccine Recomb Quad IM, Preserv and ABX Free 18-64 YRS 2020-05-16 00:00:00 Completed [facility] Influenza Virus Vaccine Recomb Quad IM, Preserv and ABX Free 18-64 YRS 2020-05-16 00:00:00 Completed [facility] Influenza Virus Vaccine Recomb Quad IM, Preserv and ABX Free 18-64 YRS 2020-05-16 00:00:00 Completed [facility] Influenza Virus Vaccine Recomb Quad IM, Preserv and ABX Free 18-64 YRS 2020-05-16 00:00:00 Completed [facility] Influenza Virus Vaccine Recomb Quad IM, Preserv and ABX Free 18-64 YRS 2020-05-16 00:00:00 Completed [facility] Influenza Virus Vaccine Recomb Quad IM, Preserv and ABX Free 18-64 YRS 2020-05-16 00:00:00 Completed [facility] Influenza Virus Vaccine Recomb Quad IM, Preserv and ABX Free 18-64 YRS 2020-05-16 00:00:00 Completed [facility] Influenza Virus Vaccine Recomb Quad IM, Preserv and ABX Free 18-64 YRS 2020-05-16 00:00:00 Completed [facility] Influenza Virus Vaccine Recomb Quad IM, Preserv and ABX Free 18-64 YRS 2020-05-16 00:00:00 Completed [facility] Influenza Virus Vaccine Recomb Quad IM, Preserv and ABX Free 18-64 YRS 2020-05-16 00:00:00 Completed [facility] Influenza Virus Vaccine Recomb Quad IM, Preserv and ABX Free 18-64 YRS 2020-05-16 00:00:00 Completed [facility] Influenza Virus Vaccine Recomb Quad IM, Preserv and ABX Free 18-64 YRS 2020-05-16 00:00:00 Completed [facility] Influenza Virus Vaccine Recomb Quad IM, Preserv and ABX Free 18-64 YRS 2020-05-16 00:00:00 Completed [facility] Influenza Virus Vaccine Recomb Quad IM, Preserv and ABX Free 18-64 YRS 2020-05-16 00:00:00 Completed [facility] Influenza Virus Vaccine Recomb Quad IM, Preserv and ABX Free 18-64 YRS 2020-05-16 00:00:00 Completed [facility] Influenza Virus Vaccine Recomb Quad IM, Preserv and ABX Free 18-64 YRS 2020-05-16 00:00:00 Completed [facility] Influenza Virus Vaccine Recomb Quad IM, Preserv and ABX Free 18-64 YRS 2020-05-16 00:00:00 Completed [facility] Influenza Virus Vaccine Recomb Quad IM, Preserv and ABX Free 18-64 YRS 2020-05-16 00:00:00 Completed [facility] Influenza Virus Vaccine Recomb Quad IM, Preserv and ABX Free 18-64 YRS 2020-05-16 00:00:00 Completed [facility] Influenza Virus Vaccine Recomb Quad IM, Preserv and ABX Free 18-64 YRS 2020-05-16 00:00:00 Completed [facility] Influenza Virus Vaccine Recomb Quad IM, Preserv and ABX Free 18-64 YRS 2020-05-16 00:00:00 Completed [facility] Influenza Virus Vaccine Recomb Quad IM, Preserv and ABX Free 18-64 YRS 2020-05-16 00:00:00 Completed [facility] Influenza Virus Vaccine Recomb Quad IM, Preserv and ABX Free 18-64 YRS 2020-05-16 00:00:00 Completed [facility] Influenza Virus Vaccine Recomb Quad IM, Preserv and ABX Free 18-64 YRS 2020-05-16 00:00:00 Completed [facility] Influenza Virus Vaccine Recomb Quad IM, Preserv and ABX Free 18-64 YRS 2020-05-16 00:00:00 Completed [facility] Influenza Virus Vaccine Recomb Quad IM, Preserv and ABX Free 18-64 YRS 2020-05-16 00:00:00 Completed [facility] Influenza Virus Vaccine Recomb Quad IM, Preserv and ABX Free 18-64 YRS 2020-05-16 00:00:00 Completed [facility] Influenza Virus Vaccine Recomb Quad IM, Preserv and ABX Free 18-64 YRS 2020-05-16 00:00:00 Completed [facility] Influenza Virus Vaccine Recomb Quad IM, Preserv and ABX Free 18-64 YRS 2020-05-16 00:00:00 Completed [facility] Influenza Virus Vaccine Recomb Quad IM, Preserv and ABX Free 18-64 YRS 2020-05-16 00:00:00 Completed [facility] Influenza Virus Vaccine Recomb Quad IM, Preserv and ABX Free 18-64 YRS 2020-05-16 00:00:00 Completed [facility] Influenza Virus Vaccine Recomb Quad IM, Preserv and ABX Free 18-64 YRS 2020-05-16 00:00:00 Completed [facility] Influenza Virus Vaccine Recomb Quad IM, Preserv and ABX Free 18-64 YRS 2020-05-16 00:00:00 Completed [facility] Influenza Virus Vaccine Recomb Quad IM, Preserv and ABX Free 18-64 YRS 2020-05-16 00:00:00 Completed [facility] Influenza Virus Vaccine Recomb Quad IM, Preserv and ABX Free 18-64 YRS 2020-05-16 00:00:00 Completed [facility] Influenza Virus Vaccine Recomb Quad IM, Preserv and ABX Free 18-64 YRS 2020-05-16 00:00:00 Completed [facility] Influenza Virus Vaccine Recomb Quad IM, Preserv and ABX Free 18-64 YRS 2020-05-16 00:00:00 Completed [facility] Influenza Virus Vaccine Recomb Quad IM, Preserv and ABX Free 18-64 YRS 2020-05-16 00:00:00 Completed [facility] Influenza Virus Vaccine Recomb Quad IM, Preserv and ABX Free 18-64 YRS 2020-05-16 00:00:00 Completed [facility] Influenza Virus Vaccine Recomb Quad IM, Preserv and ABX Free 18-64 YRS 2020-05-16 00:00:00 Completed [facility] Influenza Virus Vaccine Recomb Quad IM, Preserv and ABX Free 18-64 YRS 2020-05-16 00:00:00 Completed [facility] Influenza Virus Vaccine Recomb Quad IM, Preserv and ABX Free 18-64 YRS 2020-05-16 00:00:00 Completed [facility] Influenza Virus Vaccine Recomb Quad IM, Preserv and ABX Free 18-64 YRS 2020-05-16 00:00:00 Completed [facility] Influenza Virus Vaccine Recomb Quad IM, Preserv and ABX Free 18-64 YRS 2020-05-16 00:00:00 Completed [facility] Influenza Virus Vaccine Recomb Quad IM, Preserv and ABX Free 18-64 YRS 2020-05-16 00:00:00 Completed [facility] TDAP (ADACEL) VACCINE 2019-05-21 00:00:00 Completed [facility] TDAP (ADACEL) VACCINE 2019-05-21 00:00:00 Completed [facility] TDAP (ADACEL) VACCINE 2019-05-21 00:00:00 Completed [facility] TDAP (ADACEL) VACCINE 2019-05-21 00:00:00 Completed [facility] TDAP (ADACEL) VACCINE 2019-05-21 00:00:00 Completed [facility] TDAP (ADACEL) VACCINE 2019-05-21 00:00:00 Completed [facility] TDAP (ADACEL) VACCINE 2019-05-21 00:00:00 Completed [facility] TDAP (ADACEL) VACCINE 2019-05-21 00:00:00 Completed [facility] TDAP (ADACEL) VACCINE 2019-05-21 00:00:00 Completed [facility] TDAP (ADACEL) VACCINE 2019-05-21 00:00:00 Completed [facility] TDAP (ADACEL) VACCINE 2019-05-21 00:00:00 Completed [facility] TDAP (ADACEL) VACCINE 2019-05-21 00:00:00 Completed [facility] TDAP (ADACEL) VACCINE 2019-05-21 00:00:00 Completed [facility] TDAP (ADACEL) VACCINE 2019-05-21 00:00:00 Completed [facility] TDAP (ADACEL) VACCINE 2019-05-21 00:00:00 Completed [facility] TDAP (ADACEL) VACCINE 2019-05-21 00:00:00 Completed [facility] TDAP (ADACEL) VACCINE 2019-05-21 00:00:00 Completed [facility] TDAP (ADACEL) VACCINE 2019-05-21 00:00:00 Completed [facility] TDAP (ADACEL) VACCINE 2019-05-21 00:00:00 Completed [facility] TDAP (ADACEL) VACCINE 2019-05-21 00:00:00 Completed [facility] TDAP (ADACEL) VACCINE 2019-05-21 00:00:00 Completed [facility] TDAP (ADACEL) VACCINE 2019-05-21 00:00:00 Completed [facility] TDAP (ADACEL) VACCINE 2019-05-21 00:00:00 Completed [facility] TDAP (ADACEL) VACCINE 2019-05-21 00:00:00 Completed [facility] TDAP (ADACEL) VACCINE 2019-05-21 00:00:00 Completed [facility] TDAP (ADACEL) VACCINE 2019-05-21 00:00:00 Completed [facility] TDAP (ADACEL) VACCINE 2019-05-21 00:00:00 Completed [facility] TDAP (ADACEL) VACCINE 2019-05-21 00:00:00 Completed [facility] TDAP (ADACEL) VACCINE 2019-05-21 00:00:00 Completed [facility] TDAP (ADACEL) VACCINE 2019-05-21 00:00:00 Completed [facility] TDAP (ADACEL) VACCINE 2019-05-21 00:00:00 Completed [facility] TDAP (ADACEL) VACCINE 2019-05-21 00:00:00 Completed [facility] TDAP (ADACEL) VACCINE 2019-05-21 00:00:00 Completed [facility] TDAP (ADACEL) VACCINE 2019-05-21 00:00:00 Completed [facility] TDAP (ADACEL) VACCINE 2019-05-21 00:00:00 Completed [facility] TDAP (ADACEL) VACCINE 2019-05-21 00:00:00 Completed [facility] TDAP (ADACEL) VACCINE 2019-05-21 00:00:00 Completed [facility] TDAP (ADACEL) VACCINE 2019-05-21 00:00:00 Completed [facility] TDAP (ADACEL) VACCINE 2019-05-21 00:00:00 Completed [facility] TDAP (ADACEL) VACCINE 2019-05-21 00:00:00 Completed [facility] TDAP (ADACEL) VACCINE 2019-05-21 00:00:00 Completed [facility] TDAP (ADACEL) VACCINE 2019-05-21 00:00:00 Completed [facility] TDAP (ADACEL) VACCINE 2019-05-21 00:00:00 Completed [facility] TDAP (ADACEL) VACCINE 2019-05-21 00:00:00 Completed [facility] TDAP (ADACEL) VACCINE 2019-05-21 00:00:00 Completed [facility] TDAP (ADACEL) VACCINE 2019-05-21 00:00:00 Completed [facility] TDAP (ADACEL) VACCINE 2019-05-21 00:00:00 Completed [facility] TDAP (ADACEL) VACCINE 2019-05-21 00:00:00 Completed [facility] TDAP (ADACEL) VACCINE 2019-05-21 00:00:00 Completed [facility] TDAP (ADACEL) VACCINE 2019-05-21 00:00:00 Completed [facility] TDAP (ADACEL) VACCINE 2019-05-21 00:00:00 Completed [facility] TDAP (ADACEL) VACCINE 2019-05-21 00:00:00 Completed [facility] TDAP (ADACEL) VACCINE 2019-05-21 00:00:00 Completed [facility] TDAP (ADACEL) VACCINE 2019-05-21 00:00:00 Completed [facility] TDAP (ADACEL) VACCINE 2019-05-21 00:00:00 Completed [facility] Influenza Virus Vaccine Quad .5 mL IM 6+ MO 2019-02-06 00:00:00 Completed [facility] Influenza Virus Vaccine Quad .5 mL IM 6+ MO 2019-02-06 00:00:00 Completed [facility] Influenza Virus Vaccine Quad .5 mL IM 6+ MO 2019-02-06 00:00:00 Completed [facility] Influenza Virus Vaccine Quad .5 mL IM 6+ MO 2019-02-06 00:00:00 Completed [facility] Influenza Virus Vaccine Quad .5 mL IM 6+ MO 2019-02-06 00:00:00 Completed [facility] Influenza Virus Vaccine Quad .5 mL IM 6+ MO 2019-02-06 00:00:00 Completed [facility] Influenza Virus Vaccine Quad .5 mL IM 6+ MO 2019-02-06 00:00:00 Completed [facility] Influenza Virus Vaccine Quad .5 mL IM 6+ MO 2019-02-06 00:00:00 Completed [facility] Influenza Virus Vaccine Quad .5 mL IM 6+ MO 2019-02-06 00:00:00 Completed [facility] Influenza Virus Vaccine Quad .5 mL IM 6+ MO 2019-02-06 00:00:00 Completed [facility] Influenza Virus Vaccine Quad .5 mL IM 6+ MO 2019-02-06 00:00:00 Completed [facility] Influenza Virus Vaccine Quad .5 mL IM 6+ MO 2019-02-06 00:00:00 Completed [facility] Influenza Virus Vaccine Quad .5 mL IM 6+ MO 2019-02-06 00:00:00 Completed [facility] Influenza Virus Vaccine Quad .5 mL IM 6+ MO 2019-02-06 00:00:00 Completed [facility] Influenza Virus Vaccine Quad .5 mL IM 6+ MO 2019-02-06 00:00:00 Completed [facility] Influenza Virus Vaccine Quad .5 mL IM 6+ MO 2019-02-06 00:00:00 Completed [facility] Influenza Virus Vaccine Quad .5 mL IM 6+ MO 2019-02-06 00:00:00 Completed [facility] Influenza Virus Vaccine Quad .5 mL IM 6+ MO 2019-02-06 00:00:00 Completed [facility] Influenza Virus Vaccine Quad .5 mL IM 6+ MO 2019-02-06 00:00:00 Completed [facility] Influenza Virus Vaccine Quad .5 mL IM 6+ MO 2019-02-06 00:00:00 Completed [facility] Influenza Virus Vaccine Quad .5 mL IM 6+ MO 2019-02-06 00:00:00 Completed [facility] Influenza Virus Vaccine Quad .5 mL IM 6+ MO 2019-02-06 00:00:00 Completed [facility] Influenza Virus Vaccine Quad .5 mL IM 6+ MO 2019-02-06 00:00:00 Completed [facility] Influenza Virus Vaccine Quad .5 mL IM 6+ MO 2019-02-06 00:00:00 Completed [facility] Influenza Virus Vaccine Quad .5 mL IM 6+ MO 2019-02-06 00:00:00 Completed [facility] Influenza Virus Vaccine Quad .5 mL IM 6+ MO 2019-02-06 00:00:00 Completed [facility] Influenza Virus Vaccine Quad .5 mL IM 6+ MO 2019-02-06 00:00:00 Completed [facility] Influenza Virus Vaccine Quad .5 mL IM 6+ MO 2019-02-06 00:00:00 Completed [facility] Influenza Virus Vaccine Quad .5 mL IM 6+ MO 2019-02-06 00:00:00 Completed [facility] Influenza Virus Vaccine Quad .5 mL IM 6+ MO 2019-02-06 00:00:00 Completed [facility] Influenza Virus Vaccine Quad .5 mL IM 6+ MO 2019-02-06 00:00:00 Completed [facility] Influenza Virus Vaccine Quad .5 mL IM 6+ MO 2019-02-06 00:00:00 Completed [facility] Influenza Virus Vaccine Quad .5 mL IM 6+ MO 2019-02-06 00:00:00 Completed [facility] Influenza Virus Vaccine Quad .5 mL IM 6+ MO 2019-02-06 00:00:00 Completed [facility] Influenza Virus Vaccine Quad .5 mL IM 6+ MO 2019-02-06 00:00:00 Completed [facility] Influenza Virus Vaccine Quad .5 mL IM 6+ MO 2019-02-06 00:00:00 Completed [facility] Influenza Virus Vaccine Quad .5 mL IM 6+ MO 2019-02-06 00:00:00 Completed [facility] Influenza Virus Vaccine Quad .5 mL IM 6+ MO 2019-02-06 00:00:00 Completed [facility] Influenza Virus Vaccine Quad .5 mL IM 6+ MO 2019-02-06 00:00:00 Completed [facility] Influenza Virus Vaccine Quad .5 mL IM 6+ MO 2019-02-06 00:00:00 Completed [facility] Influenza Virus Vaccine Quad .5 mL IM 6+ MO 2019-02-06 00:00:00 Completed [facility] Influenza Virus Vaccine Quad .5 mL IM 6+ MO 2019-02-06 00:00:00 Completed [facility] Influenza Virus Vaccine Quad .5 mL IM 6+ MO 2019-02-06 00:00:00 Completed [facility] Influenza Virus Vaccine Quad .5 mL IM 6+ MO 2019-02-06 00:00:00 Completed [facility] Influenza Virus Vaccine Quad .5 mL IM 6+ MO 2019-02-06 00:00:00 Completed [facility] Influenza Virus Vaccine Quad .5 mL IM 6+ MO 2019-02-06 00:00:00 Completed [facility] Influenza Virus Vaccine Quad .5 mL IM 6+ MO 2019-02-06 00:00:00 Completed [facility] Influenza Virus Vaccine Quad .5 mL IM 6+ MO 2019-02-06 00:00:00 Completed [facility] Influenza Virus Vaccine Quad .5 mL IM 6+ MO 2019-02-06 00:00:00 Completed [facility] Influenza Virus Vaccine Quad .5 mL IM 6+ MO 2019-02-06 00:00:00 Completed [facility] Influenza Virus Vaccine Quad .5 mL IM 6+ MO 2019-02-06 00:00:00 Completed [facility] Influenza Virus Vaccine Quad .5 mL IM 6+ MO 2019-02-06 00:00:00 Completed [facility] Influenza Virus Vaccine Quad .5 mL IM 6+ MO (FLUZONE/FLULAVAL/F LUARIX) 2019-02-06 00:00:00 Completed [facility] Influenza Virus Vaccine Quad .5 mL IM 6+ MO (FLUZONE/FLULAVAL/F LUARIX) 2019-02-06 00:00:00 Completed [facility] Influenza Virus Vaccine Quad .5 mL IM 6+ MO (FLUZONE/FLULAVAL/F LUARIX) 2019-02-06 00:00:00 Completed [facility] Influenza Virus Vaccine Quad .5 mL IM 6+ MO (FLUZONE/FLULAVAL/F LUARIX) Unknown Completed [facility] TDAP (ADACEL) VACCINE Unknown Completed [facility] Influenza Virus Vaccine Recomb Quad IM, Preserv and ABX Free 18-64 YRS Unknown Completed [facility] Influenza Virus Vaccine Unknown Completed [facility] Influenza Virus Vaccine Quad IM, Preserv and ABX Free 6 MO-64 YRS (FLUCELVAX) Unknown Completed [facility] Influenza Virus Vaccine Quad .5 mL IM 6+ MO (FLUZONE/FLULAVAL/F LUARIX) Unknown Completed [facility] TDAP (ADACEL) VACCINE Unknown Completed [facility] Influenza Virus Vaccine Recomb Quad IM, Preserv and ABX Free 18-64 YRS Unknown Completed [facility] Influenza Virus Vaccine Unknown Completed [facility] Influenza Virus Vaccine Quad IM, Preserv and ABX Free 6 MO-64 YRS (FLUCELVAX) Unknown Completed [facility] Influenza Virus Vaccine Quad .5 mL IM 6+ MO (FLUZONE/FLULAVAL/F LUARIX) Unknown Completed [facility] TDAP (ADACEL) VACCINE Unknown Completed [facility] Influenza Virus Vaccine Recomb Quad IM, Preserv and ABX Free 18-64 YRS Unknown Completed [facility] Influenza Virus Vaccine Unknown Completed [facility] Influenza Virus Vaccine Quad .5 mL IM 6+ MO (FLUZONE/FLULAVAL/F LUARIX) Unknown Completed [facility] TDAP (ADACEL) VACCINE Unknown Completed [facility] Influenza Virus Vaccine Recomb Quad IM, Preserv and ABX Free 18-64 YRS Unknown Completed [facility] Influenza Virus Vaccine Unknown Completed [facility] Influenza Virus Vaccine Quad .5 mL IM 6+ MO (FLUZONE/FLULAVAL/F LUARIX) Unknown Completed [facility] TDAP (ADACEL) VACCINE Unknown Completed [facility] Influenza Virus Vaccine Recomb Quad IM, Preserv and ABX Free 18-64 YRS Unknown Completed [facility] Influenza Virus Vaccine Unknown Completed [facility] Influenza Virus Vaccine Quad .5 mL IM 6+ MO (FLUZONE/FLULAVAL/F LUARIX) Unknown Completed [facility] TDAP (ADACEL) VACCINE Unknown Completed [facility] Influenza Virus Vaccine Recomb Quad IM, Preserv and ABX Free 18-64 YRS Unknown Completed [facility] Influenza Virus Vaccine Unknown Completed [facility] Influenza Virus Vaccine Quad .5 mL IM 6+ MO (FLUZONE/FLULAVAL/F LUARIX) Unknown Completed [facility] TDAP (ADACEL) VACCINE Unknown Completed [facility] Influenza Virus Vaccine Recomb Quad IM, Preserv and ABX Free 18-64 YRS Unknown Completed [facility] Influenza Virus Vaccine Unknown Completed [facility] Influenza Virus Vaccine Quad .5 mL IM 6+ MO (FLUZONE/FLULAVAL/F LUARIX) Unknown Completed [facility] TDAP (ADACEL) VACCINE Unknown Completed [facility] Influenza Virus Vaccine Recomb Quad IM, Preserv and ABX Free 18-64 YRS Unknown Completed [facility] Influenza Virus Vaccine Unknown Completed [facility] Influenza Virus Vaccine Quad .5 mL IM 6+ MO (FLUZONE/FLULAVAL/F LUARIX) Unknown Completed [facility] TDAP (ADACEL) VACCINE Unknown Completed [facility] Influenza Virus Vaccine Recomb Quad IM, Preserv and ABX Free 18-64 YRS Unknown Completed [facility] Influenza Virus Vaccine Unknown Completed [facility] Influenza Virus Vaccine Quad .5 mL IM 6+ MO (FLUZONE/FLULAVAL/F LUARIX) Unknown Completed [facility] TDAP (ADACEL) VACCINE Unknown Completed [facility] Influenza Virus Vaccine Recomb Quad IM, Preserv and ABX Free 18-64 YRS Unknown Completed [facility] Influenza Virus Vaccine Unknown Completed [facility] Influenza Virus Vaccine Quad .5 mL IM 6+ MO (FLUZONE/FLULAVAL/F LUARIX) Unknown Com[facility] [facility] Unknown Completed [facility] Influenza Virus Vaccine Recomb Quad IM, Preserv and ABX Free 18-64 YRS Unknown Completed [facility] Influenza Virus Vaccine Unknown Completed [facility] Influenza Virus Vaccine Quad .5 mL IM 6+ MO (FLUZONE/FLULAVAL/F LUARIX) Unknown Completed [facility] TDAP (ADACEL) VACCINE Unknown Completed [facility] Influenza Virus Vaccine Recomb Quad IM, Preserv and ABX Free 18-64 YRS Unknown Completed [facility] Influenza Virus Vaccine Unknown Completed [facility] Influenza Virus Vaccine Quad .5 mL IM 6+ MO (FLUZONE/FLULAVAL/F LUARIX) Unknown Completed [facility] TDAP (ADACEL) VACCINE Unknown Completed [facility] Influenza Virus Vaccine Recomb Quad IM, Preserv and ABX Free 18-64 YRS Unknown Completed [facility] Influenza Virus Vaccine Unknown Completed [facility] Influenza Virus Vaccine Quad .5 mL IM 6+ MO (FLUZONE/FLULAVAL/F LUARIX) Unknown Completed [facility] TDAP (ADACEL) VACCINE Unknown Completed [facility] Influenza Virus Vaccine Recomb Quad IM, Preserv and ABX Free 18-64 YRS Unknown Completed [facility] Influenza Virus Vaccine Unknown Completed [facility] Influenza Virus Vaccine Quad .5 mL IM 6+ MO (FLUZONE/FLULAVAL/F LUARIX) Unknown Completed [facility] TDAP (ADACEL) VACCINE Unknown Completed [facility] Influenza Virus Vaccine Recomb Quad IM, Preserv and ABX Free 18-64 YRS Unknown Completed [facility] Influenza Virus Vaccine Unknown Completed [facility] Influenza Virus Vaccine Quad .5 mL IM 6+ MO (FLUZONE/FLULAVAL/F LUARIX) Unknown Completed [facility] TDAP (ADACEL) VACCINE Unknown Completed [facility] Influenza Virus Vaccine Recomb Quad IM, Preserv and ABX Free 18-64 YRS Unknown Completed [facility] Influenza Virus Vaccine Unknown Completed [facility] Influenza Virus Vaccine Quad .5 mL IM 6+ MO (FLUZONE/FLULAVAL/F LUARIX) Unknown Completed [facility] TDAP (ADACEL) VACCINE Unknown Completed [facility] Influenza Virus Vaccine Recomb Quad IM, Preserv and ABX Free 18-64 YRS Unknown Completed [facility] Influenza Virus Vaccine Unknown Completed [facility] Influenza Virus Vaccine Quad .5 mL IM 6+ MO (FLUZONE/FLULAVAL/F LUARIX) Unknown Completed [facility] TDAP (ADACEL) VACCINE Unknown Completed [facility] Influenza Virus Vaccine Recomb Quad IM, Preserv and ABX Free 18-64 YRS Unknown Completed [facility] Influenza Virus Vaccine Unknown Completed [facility] Influenza Virus Vaccine Quad .5 mL IM 6+ MO (FLUZONE/FLULAVAL/F LUARIX) Unknown Completed [facility] TDAP (ADACEL) VACCINE Unknown Completed [facility] Influenza Virus Vaccine Recomb Quad IM, Preserv and ABX Free 18-64 YRS Unknown Completed [facility] Influenza Virus Vaccine Unknown Completed [facility] Influenza Virus Vaccine Quad .5 mL IM 6+ MO (FLUZONE/FLULAVAL/F LUARIX) Unknown Completed [facility] TDAP (ADACEL) VACCINE Unknown Completed [facility] Influenza Virus Vaccine Recomb Quad IM, Preserv and ABX Free 18-64 YRS Unknown Completed [facility] Influenza Virus Vaccine Unknown Completed [facility] Influenza Virus Vaccine Quad .5 mL IM 6+ MO (FLUZONE/FLULAVAL/F LUARIX) Unknown Completed [facility] TDAP (ADACEL) VACCINE Unknown Completed [facility] Influenza Virus Vaccine Recomb Quad IM, Preserv and ABX Free 18-64 YRS Unknown Completed [facility] Influenza Virus Vaccine Unknown Completed [facility] Influenza Virus Vaccine Quad .5 mL IM 6+ MO (FLUZONE/FLULAVAL/F LUARIX) Unknown Completed [facility] TDAP (ADACEL) VACCINE Unknown Completed [facility] Influenza Virus Vaccine Recomb Quad IM, Preserv and ABX Free 18-64 YRS Unknown Completed [facility] Influenza Virus Vaccine Unknown Completed [facility] Influenza Virus Vaccine Quad .5 mL IM 6+ MO (FLUZONE/FLULAVAL/F LUARIX) Unknown Completed [facility] TDAP (ADACEL) VACCINE Unknown Completed [facility] Influenza Virus Vaccine Recomb Quad IM, Preserv and ABX Free 18-64 YRS Unknown Completed [facility] Influenza Virus Vaccine Unknown Completed [facility] Influenza Virus Vaccine Quad .5 mL IM 6+ MO (FLUZONE/FLULAVAL/F LUARIX) Unknown Completed [facility] TDAP (ADACEL) VACCINE Unknown Completed [facility] Influenza Virus Vaccine Recomb Quad IM, Preserv and ABX Free 18-64 YRS Unknown Completed [facility] Influenza Virus Vaccine Unknown Completed [facility] Influenza Virus Vaccine Quad .5 mL IM 6+ MO (FLUZONE/FLULAVAL/F LUARIX) Unknown Completed [facility] TDAP (ADACEL) VACCINE Unknown Completed [facility] Influenza Virus Vaccine Recomb Quad IM, Preserv and ABX Free 18-64 YRS Unknown Completed [facility] Influenza Virus Vaccine Unknown Completed [facility] Influenza Virus Vaccine Quad .5 mL IM 6+ MO (FLUZONE/FLULAVAL/F LUARIX) Unknown Completed [facility] TDAP (ADACEL) VACCINE Unknown Completed [facility] Influenza Virus Vaccine Recomb Quad IM, Preserv and ABX Free 18-64 YRS Unknown Completed [facility] Influenza Virus Vaccine Unknown Completed [facility] Influenza Virus Vaccine Quad .5 mL IM 6+ MO (FLUZONE/FLULAVAL/F LUARIX) Unknown Completed [facility] TDAP (ADACEL) VACCINE Unknown Completed [facility] Influenza Virus Vaccine Recomb Quad IM, Preserv and ABX Free 18-64 YRS Unknown Completed [facility] Influenza Virus Vaccine Unknown Completed [facility] Influenza Virus Vaccine Quad .5 mL IM 6+ MO (FLUZONE/FLULAVAL/F LUARIX) Unknown Completed [facility] TDAP (ADACEL) VACCINE Unknown Completed [facility] Influenza Virus Vaccine Recomb Quad IM, Preserv and ABX Free 18-64 YRS Unknown Completed [facility] Influenza Virus Vaccine Unknown Completed [facility] Influenza Virus Vaccine Quad .5 mL IM 6+ MO (FLUZONE/FLULAVAL/F LUARIX) Unknown Completed [facility] TDAP (ADACEL) VACCINE Unknown Completed [facility] Influenza Virus Vaccine Recomb Quad IM, Preserv and ABX Free 18-64 YRS Unknown Completed [facility] Influenza Virus Vaccine Unknown Completed [facility] Influenza Virus Vaccine Quad .5 mL IM 6+ MO (FLUZONE/FLULAVAL/F LUARIX) Unknown Completed [facility] TDAP (ADACEL) VACCINE Unknown Completed [facility] Influenza Virus Vaccine Recomb Quad IM, Preserv and ABX Free 18-64 YRS Unknown Completed [facility] Influenza Virus Vaccine Unknown Completed [facility] Influenza Virus Vaccine Quad .5 mL IM 6+ MO (FLUZONE/FLULAVAL/F LUARIX) Unknown Completed [facility] TDAP (ADACEL) VACCINE Unknown Completed [facility] Influenza Virus Vaccine Recomb Quad IM, Preserv and ABX Free 18-64 YRS Unknown Completed [facility] Influenza Virus Vaccine Unknown Completed [facility] Influenza Virus Vaccine Quad .5 mL IM 6+ MO (FLUZONE/FLULAVAL/F LUARIX) Unknown Completed [facility] TDAP (ADACEL) VACCINE Unknown Completed [facility] Influenza Virus Vaccine Recomb Quad IM, Preserv and ABX Free 18-64 YRS Unknown Completed [facility] Influenza Virus Vaccine Unknown Completed [facility] Influenza Virus Vaccine Quad .5 mL IM 6+ MO (FLUZONE/FLULAVAL/F LUARIX) Unknown Completed [facility] TDAP (ADACEL) VACCINE Unknown Completed [facility] Influenza Virus Vaccine Recomb Quad IM, Preserv and ABX Free 18-64 YRS Unknown Completed [facility] Influenza Virus Vaccine Unknown Completed [facility] Influenza Virus Vaccine Quad .5 mL IM 6+ MO (FLUZONE/FLULAVAL/F LUARIX) Unknown Completed [facility] TDAP (ADACEL) VACCINE Unknown Completed [facility] Influenza Virus Vaccine Recomb Quad IM, Preserv and ABX Free 18-64 YRS Unknown Completed [facility] Influenza Virus Vaccine Unknown Completed [facility] Influenza Virus Vaccine Quad .5 mL IM 6+ MO (FLUZONE/FLULAVAL/F LUARIX) Unknown Completed [facility] TDAP (ADACEL) VACCINE Unknown Completed [facility] Influenza Virus Vaccine Recomb Quad IM, Preserv and ABX Free 18-64 YRS Unknown Completed [facility] Influenza Virus Vaccine Unknown Completed [facility] Influenza Virus Vaccine Quad .5 mL IM 6+ MO (FLUZONE/FLULAVAL/F LUARIX) Unknown Completed [facility] TDAP (ADACEL) VACCINE Unknown Completed [facility] Influenza Virus Vaccine Recomb Quad IM, Preserv and ABX Free 18-64 YRS Unknown Completed [facility] Influenza Virus Vaccine Unknown Completed [facility] Influenza Virus Vaccine Quad .5 mL IM 6+ MO (FLUZONE/FLULAVAL/F LUARIX) Unknown Completed [facility] TDAP (ADACEL) VACCINE Unknown Completed [facility] Influenza Virus Vaccine Recomb Quad IM, Preserv and ABX Free 18-64 YRS Unknown Completed [facility] Influenza Virus Vaccine Unknown Completed [facility] Influenza Virus Vaccine Quad .5 mL IM 6+ MO (FLUZONE/FLULAVAL/F LUARIX) Unknown Completed [facility] TDAP (ADACEL) VACCINE Unknown Completed [facility] Influenza Virus Vaccine Recomb Quad IM, Preserv and ABX Free 18-64 YRS Unknown Completed [facility] Influenza Virus Vaccine Unknown Completed [facility] Influenza Virus Vaccine Quad .5 mL IM 6+ MO (FLUZONE/FLULAVAL/F LUARIX) Unknown Completed [facility] TDAP (ADACEL) VACCINE Unknown Completed [facility] Influenza Virus Vaccine Recomb Quad IM, Preserv and ABX Free 18-64 YRS Unknown Completed [facility] Influenza Virus Vaccine Unknown Completed [facility] Influenza Virus Vaccine Quad .5 mL IM 6+ MO (FLUZONE/FLULAVAL/F LUARIX) Unknown Completed [facility] TDAP (ADACEL) VACCINE Unknown Completed [facility] Influenza Virus Vaccine Recomb Quad IM, Preserv and ABX Free 18-64 YRS Unknown Completed [facility] Influenza Virus Vaccine Unknown Completed [facility] Influenza Virus Vaccine Quad .5 mL IM 6+ MO (FLUZONE/FLULAVAL/F LUARIX) Unknown Completed [facility] TDAP (ADACEL) VACCINE Unknown Completed [facility] Influenza Virus Vaccine Recomb Quad IM, Preserv and ABX Free 18-64 YRS Unknown Completed [facility] Influenza Virus Vaccine Unknown Completed [facility] Influenza Virus Vaccine Quad .5 mL IM 6+ MO (FLUZONE/FLULAVAL/F LUARIX) Unknown Completed [facility] TDAP (ADACEL) VACCINE Unknown Completed [facility] Influenza Virus Vaccine Recomb Quad IM, Preserv and ABX Free 18-64 YRS Unknown Completed [facility] Influenza Virus Vaccine Unknown Completed [facility] Influenza Virus Vaccine Quad .5 mL IM 6+ MO (FLUZONE/FLULAVAL/F LUARIX) Unknown Completed [facility] TDAP (ADACEL) VACCINE Unknown Completed [facility] Influenza Virus Vaccine Recomb Quad IM, Preserv and ABX Free 18-64 YRS Unknown Completed [facility] Influenza Virus Vaccine Unknown Completed [facility] Influenza Virus Vaccine Quad .5 mL IM 6+ MO (FLUZONE/FLULAVAL/F LUARIX) Unknown Completed [facility] TDAP (ADACEL) VACCINE Unknown Completed [facility] Influenza Virus Vaccine Recomb Quad IM, Preserv and ABX Free 18-64 YRS Unknown Completed [facility] Influenza Virus Vaccine Unknown Completed [facility] Influenza Virus Vaccine Quad .5 mL IM 6+ MO (FLUZONE/FLULAVAL/F LUARIX) Unknown Completed [facility] TDAP (ADACEL) VACCINE Unknown Completed [facility] Influenza Virus Vaccine Recomb Quad IM, Preserv and ABX Free 18-64 YRS Unknown Completed [facility] Influenza Virus Vaccine Unknown Completed [facility] Influenza Virus Vaccine Quad .5 mL IM 6+ MO (FLUZONE/FLULAVAL/F LUARIX) Unknown Completed [facility] TDAP (ADACEL) VACCINE Unknown Completed [facility] Influenza Virus Vaccine Recomb Quad IM, Preserv and ABX Free 18-64 YRS Unknown Completed [facility] Influenza Virus Vaccine Unknown Completed [facility] Influenza Virus Vaccine Quad .5 mL IM 6+ MO (FLUZONE/FLULAVAL/F LUARIX) Unknown Completed [facility] TDAP (ADACEL) VACCINE Unknown Completed [facility] Influenza Virus Vaccine Recomb Quad IM, Preserv and ABX Free 18-64 YRS Unknown Completed [facility] Influenza Virus Vaccine Unknown Completed [facility] Influenza Virus Vaccine Quad .5 mL IM 6+ MO (FLUZONE/FLULAVAL/F LUARIX) Unknown Completed [facility] TDAP (ADACEL) VACCINE Unknown Completed [facility] Influenza Virus Vaccine Recomb Quad IM, Preserv and ABX Free 18-64 YRS Unknown Completed [facility] Influenza Virus Vaccine Unknown Completed [facility] Influenza Virus Vaccine Quad .5 mL IM 6+ MO (FLUZONE/FLULAVAL/F LUARIX) Unknown Completed [facility] TDAP (ADACEL) VACCINE Unknown Completed [facility] Influenza Virus Vaccine Recomb Quad IM, Preserv and ABX Free 18-64 YRS Unknown Completed [facility] Influenza Virus Vaccine Unknown Completed [facility] Influenza Virus Vaccine Quad .5 mL IM 6+ MO (FLUZONE/FLULAVAL/F LUARIX) Unknown Completed [facility] TDAP (ADACEL) VACCINE Unknown Completed [facility] Influenza Virus Vaccine Recomb Quad IM, Preserv and ABX Free 18-64 YRS Unknown Completed [facility] Influenza Virus Vaccine Unknown Completed [facility] Influenza Virus Vaccine Quad .5 mL IM 6+ MO (FLUZONE/FLULAVAL/F LUARIX) Unknown Completed [facility] TDAP (ADACEL) VACCINE Unknown Completed [facility] Influenza Virus Vaccine Recomb Quad IM, Preserv and ABX Free 18-64 YRS Unknown Completed [facility] Influenza Virus Vaccine Unknown Completed [facility] Influenza Virus Vaccine Quad .5 mL IM 6+ MO (FLUZONE/FLULAVAL/F LUARIX) Unknown Completed [facility] TDAP (ADACEL) VACCINE Unknown Completed [facility] Influenza Virus Vaccine Recomb Quad IM, Preserv and ABX Free 18-64 YRS Unknown Completed [facility] Influenza Virus Vaccine Unknown Completed [facility] Influenza Virus Vaccine Quad .5 mL IM 6+ MO (FLUZONE/FLULAVAL/F LUARIX) Unknown Completed [facility] TDAP (ADACEL) VACCINE Unknown Completed [facility] Influenza Virus Vaccine Recomb Quad IM, Preserv and ABX Free 18-64 YRS Unknown Completed [facility] Influenza Virus Vaccine Unknown Completed [facility] Influenza Virus Vaccine Quad .5 mL IM 6+ MO (FLUZONE/FLULAVAL/F LUARIX) Unknown Completed [facility] TDAP (ADACEL) VACCINE Unknown Completed [facility] Influenza Virus Vaccine Recomb Quad IM, Preserv and ABX Free 18-64 YRS Unknown Completed [facility] Influenza Virus Vaccine Unknown Completed [facility] Influenza Virus Vaccine Quad .5 mL IM 6+ MO (FLUZONE/FLULAVAL/F LUARIX) Unknown Completed [facility] TDAP (ADACEL) VACCINE Unknown Completed [facility] Influenza Virus Vaccine Quad .5 mL IM 6+ MO (FLUZONE/FLULAVAL/F LUARIX) Unknown Completed [facility] TDAP (ADACEL) VACCINE Unknown Completed [facility] Influenza Virus Vaccine Quad .5 mL IM 6+ MO (FLUZONE/FLULAVAL/F LUARIX) Unknown Completed [facility] TDAP (ADACEL) VACCINE Unknown Completed [facility] Influenza Virus Vaccine Quad .5 mL IM 6+ MO (FLUZONE/FLULAVAL/F LUARIX) Unknown Completed [facility] TDAP (ADACEL) VACCINE Unknown Completed [facility] Influenza Virus Vaccine Quad .5 mL IM 6+ MO (FLUZONE/FLULAVAL/F LUARIX) Unknown Completed [facility] TDAP (ADACEL) VACCINE Unknown Completed [facility] Influenza Virus Vaccine Quad .5 mL IM 6+ MO (FLUZONE/FLULAVAL/F LUARIX) Unknown Completed [facility] TDAP (ADACEL) VACCINE Unknown Completed [facility] Influenza Virus Vaccine Quad .5 mL IM 6+ MO (FLUZONE/FLULAVAL/F LUARIX) Unknown Completed [facility] TDAP (ADACEL) VACCINE Unknown Completed [facility] Influenza Virus Vaccine Quad .5 mL IM 6+ MO (FLUZONE/FLULAVAL/F LUARIX) Unknown Completed [facility] TDAP (ADACEL) VACCINE Unknown Completed [facility] Influenza Virus Vaccine Quad .5 mL IM 6+ MO (FLUZONE/FLULAVAL/F LUARIX) Unknown Completed [facility] TDAP (ADACEL) VACCINE Unknown Completed [facility] Influenza Virus Vaccine Quad .5 mL IM 6+ MO (FLUZONE/FLULAVAL/F LUARIX) Unknown Completed [facility] TDAP (ADACEL) VACCINE Unknown Completed [facility] Influenza Virus Vaccine Recomb Quad IM, Preserv and ABX Free 18-64 YRS Unknown Completed [facility] Influenza Virus Vaccine Unknown Completed [facility] Influenza Virus Vaccine Quad IM, Preserv and ABX Free 6 MO-64 YRS (FLUCELVAX) Unknown Completed [facility] Influenza Virus Vaccine Quad .5 mL IM 6+ MO (FLUZONE/FLULAVAL/F LUARIX) Unknown Completed [facility] TDAP (ADACEL) VACCINE Unknown Completed [facility] Influenza Virus Vaccine Recomb Quad IM, Preserv and ABX Free 18-64 YRS Unknown Completed [facility] Influenza Virus Vaccine Unknown Completed [facility] Influenza Virus Vaccine Quad IM, Preserv and ABX Free 6 MO-64 YRS (FLUCELVAX) Unknown Completed [facility] Influenza Virus Vaccine Quad .5 mL IM 6+ MO (FLUZONE/FLULAVAL/F LUARIX) Unknown Completed [facility] TDAP (ADACEL) VACCINE Unknown Completed [facility] Influenza Virus Vaccine Recomb Quad IM, Preserv and ABX Free 18-64 YRS Unknown Completed [facility] Influenza Virus Vaccine Unknown Completed [facility] Influenza Virus Vaccine Quad IM, Preserv and ABX Free 6 MO-64 YRS (FLUCELVAX) Unknown Completed [facility] Vital Signs Vital Name Observation Time Observation Value Comments S yeseniace Systolic blood pressure 2024-08-16 15:52:44 116 mm[Hg] [facility] Diastolic blood pressure 2024-08-16 15:52:44 70 mm[Hg] [facility] Heart rate 2024-08-16 15:52:44 62 /min [facility] Body temperature 2024-08-16 15:52:44 36.89 Irene [facility] Respiratory rate 2024-08-16 15:52:44 16 /min [facility] Oxygen saturation in Arterial blood by Pulse oximetry 2024-08-16 15:52:44 100 /min [facility] Body height 2024-08-16 13:09:00 154.9 cm [facility] Body weight 2024-08-16 13:09:00 58.968 kg [facility] BMI 2024-08-16 13:09:00 24.56 kg/m2 [facility] Systolic blood pressure 2024-08-02 17:21:00 119 mm[Hg] [facility] Diastolic blood pressure 2024-08-02 17:21:00 81 mm[Hg] [facility] Heart rate 2024-08-02 17:21:00 88 /min [facility] Body temperature 2024-08-02 17:21:00 36.78 Irene [facility] Respiratory rate 2024-08-02 17:21:00 16 /min [facility] Oxygen saturation in Arterial blood by Pulse oximetry 2024-08-02 17:21:00 100 /min [facility] Body height 2024-08-02 15:11:00 154.9 cm [facility] Body weight 2024-08-02 15:11:00 52.164 kg [facility] BMI 2024-08-02 15:11:00 21.73 kg/m2 [facility] Systolic blood pressure 2024-05-19 20:32:57 137 mm[Hg] [facility] Diastolic blood pressure 2024-05-19 20:32:57 88 mm[Hg] [facility] Heart rate 2024-05-19 20:32:57 118 /min [facility] Respiratory rate 2024-05-19 20:32:57 18 /min [facility] Oxygen saturation in Arterial blood by Pulse oximetry 2024-05-19 20:32:57 100 /min [facility] Body temperature 2024-05-19 18:41:00 36.39 Irene [facility] Body height 2024-05-19 18:41:00 154.9 cm [facility] Body weight 2024-05-19 18:41:00 52.164 kg [facility] BMI 2024-05-19 18:41:00 21.73 kg/m2 [facility] Systolic blood pressure 2024-04-19 15:51:38 123 mm[Hg] [facility] Diastolic blood pressure 2024-04-19 15:51:38 90 mm[Hg] [facility] Heart rate 2024-04-19 15:51:38 87 /min [facility] Body temperature 2024-04-19 15:51:38 36.78 Irene [facility] Respiratory rate 2024-04-19 15:51:38 14 /min [facility] Oxygen saturation in Arterial blood by Pulse oximetry 2024-04-19 15:51:38 100 /min [facility] Body height 2024-04-19 13:54:00 154.9 cm [facility] Body weight 2024-04-19 13:54:00 54.432 kg [facility] BMI 2024-04-19 13:54:00 22.67 kg/m2 [facility] Systolic blood pressure 2024-04-12 20:00:00 119 mm[Hg] [facility] Diastolic blood pressure 2024-04-12 20:00:00 80 mm[Hg] [facility] Heart rate 2024-04-12 20:00:00 88 /min [facility] Respiratory rate 2024-04-12 20:00:00 18 /min [facility] Oxygen saturation in Arterial blood by Pulse oximetry 2024-04-12 20:00:00 99 /min [facility] Body temperature 2024-04-12 19:00:00 36.67 Irene [facility] Body height 2024-04-12 17:57:10 154.9 cm [facility] Body weight 2024-04-12 17:57:10 54.432 kg [facility] BMI 2024-04-12 17:57:10 22.67 kg/m2 [facility] Systolic blood pressure 2024-04-12 16:25:00 124 mm[Hg] [facility] Diastolic blood pressure 2024-04-12 16:25:00 95 mm[Hg] [facility] Heart rate 2024-04-12 16:25:00 106 /min [facility] Body temperature 2024-04-12 16:25:00 37.17 Irene [facility] Respiratory rate 2024-04-12 16:25:00 18 /min [facility] Oxygen saturation in Arterial blood by Pulse oximetry 2024-04-12 16:25:00 100 /min [facility] Body height 2024-04-12 15:25:00 154.9 cm [facility] Body weight 2024-04-12 15:25:00 54.432 kg [facility] BMI 2024-04-12 15:25:00 22.67 kg/m2 [facility] Systolic blood pressure 2024-03-13 13:25:00 129 mm[Hg] [facility] Diastolic blood pressure 2024-03-13 13:25:00 87 mm[Hg] [facility] Heart rate 2024-03-13 13:25:00 116 /min [facility] Body temperature 2024-03-13 13:25:00 35.61 Irene [facility] Respiratory rate 2024-03-13 13:25:00 20 /min [facility] Oxygen saturation in Arterial blood by Pulse oximetry 2024-03-13 13:25:00 94 /min [facility] Body height 2024-03-10 14:43:00 154.9 cm [facility] Body weight 2024-03-10 14:43:00 44.453 kg [facility] BMI 2024-03-10 14:43:00 18.52 kg/m2 [facility] Systolic blood pressure 2024-03-05 16:10:00 142 mm[Hg] [facility] Diastolic blood pressure 2024-03-05 16:10:00 87 mm[Hg] [facility] Heart rate 2024-03-05 16:10:00 94 /min [facility] Body temperature 2024-03-05 16:10:00 37 Irene [facility] Respiratory rate 2024-03-05 16:10:00 16 /min [facility] Oxygen saturation in Arterial blood by Pulse oximetry 2024-03-05 16:10:00 100 /min [facility] Body height 2024-03-04 11:42:00 154.9 cm [facility] Body weight 2024-03-04 11:42:00 45.36 kg [facility] BMI 2024-03-04 11:42:00 18.89 kg/m2 [facility] Systolic blood pressure 2024-02-27 17:17:00 138 mm[Hg] [facility] Diastolic blood pressure 2024-02-27 17:17:00 91 mm[Hg] [facility] Heart rate 2024-02-27 17:17:00 97 /min [facility] Body temperature 2024-02-27 17:17:00 36.67 Irene [facility] Respiratory rate 2024-02-27 17:17:00 16 /min [facility] Oxygen saturation in Arterial blood by Pulse oximetry 2024-02-27 17:17:00 99 /min [facility] Body height 2024-02-27 13:16:00 154.9 cm [facility] Body weight 2024-02-27 13:16:00 45.36 kg [facility] BMI 2024-02-27 13:16:00 18.89 kg/m2 [facility] Systolic blood pressure 2024-02-27 15:50:00 122 mm[Hg] [facility] Diastolic blood pressure 2024-02-27 15:50:00 81 mm[Hg] [facility] Heart rate 2024-02-27 15:50:00 102 /min [facility] Respiratory rate 2024-02-27 15:50:00 13 /min [facility] Oxygen saturation in Arterial blood by Pulse oximetry 2024-02-27 15:50:00 98 /min [facility] Body temperature 2024-02-27 15:20:00 36 Irene [facility] Body height 2024-02-27 13:16:00 154.9 cm [facility] Body weight 2024-02-27 13:16:00 45.36 kg [facility] BMI 2024-02-27 13:16:00 18.89 kg/m2 [facility] Systolic blood pressure 2023-05-19 17:24:00 129 mm[Hg] [facility] Diastolic blood pressure 2023-05-19 17:24:00 83 mm[Hg] [facility] Heart rate 2023-05-19 17:24:00 77 /min [facility] Respiratory rate 2023-05-19 17:24:00 15 /min [facility] Oxygen saturation in Arterial blood by Pulse oximetry 2023-05-19 17:24:00 100 /min [facility] Body temperature 2023-05-19 14:50:00 37.28 Irene [facility] Body height 2023-05-19 14:50:00 154.9 cm [facility] Body weight 2023-05-19 14:50:00 58.968 kg [facility] BMI 2023-05-19 14:50:00 24.56 kg/m2 [facility] Systolic blood pressure 2023-01-15 16:56:00 132 mm[Hg] [facility] Diastolic blood pressure 2023-01-15 16:56:00 91 mm[Hg] [facility] Heart rate 2023-01-15 16:56:00 67 /min [facility] Body temperature 2023-01-15 16:56:00 36.78 Irene [facility] Respiratory rate 2023-01-15 16:56:00 20 /min [facility] Oxygen saturation in Arterial blood by Pulse oximetry 2023-01-15 16:56:00 100 /min [facility] Body height 2023-01-12 09:05:00 154.9 cm [facility] Body weight 2023-01-12 09:05:00 58.968 kg [facility] BMI 2023-01-12 09:05:00 24.56 kg/m2 [facility] Systolic blood pressure 2022-11-21 21:40:00 122 mm[Hg] [facility] Diastolic blood pressure 2022-11-21 21:40:00 90 mm[Hg] [facility] Heart rate 2022-11-21 21:40:00 92 /min [facility] Respiratory rate 2022-11-21 21:40:00 16 /min [facility] Oxygen saturation in Arterial blood by Pulse oximetry 2022-11-21 21:40:00 99 /min [facility] Body temperature 2022-11-21 18:07:00 37.28 Irene [facility] Body weight 2022-11-21 18:07:00 68.04 kg [facility] BMI 2022-11-21 18:07:00 28.34 kg/m2 [facility] Systolic blood pressure 2022-09-05 17:22:00 139 mm[Hg] [facility] Diastolic blood pressure 2022-09-05 17:22:00 91 mm[Hg] [facility] Heart rate 2022-09-05 17:22:00 120 /min [facility] Respiratory rate 2022-09-05 17:22:00 18 /min [facility] Oxygen saturation in Arterial blood by Pulse oximetry 2022-09-05 17:22:00 99 /min [facility] Body temperature 2022-09-05 13:43:00 37.11 Irene [facility] Body weight 2022-09-05 13:43:00 68.04 kg [facility] BMI 2022-09-05 13:43:00 28.34 kg/m2 [facility] Systolic blood pressure 2022-08-01 00:49:00 138 mm[Hg] [facility] Diastolic blood pressure 2022-08-01 00:49:00 104 mm[Hg] [facility] Heart rate 2022-08-01 00:49:00 108 /min [facility] Respiratory rate 2022-08-01 00:49:00 18 /min [facility] Oxygen saturation in Arterial blood by Pulse oximetry 2022-08-01 00:49:00 99 /min [facility] Body temperature 2022-07-31 22:52:00 37.11 [facility] Body height 2022-07-31 22:52:00 154.9 cm [facility] Body weight 2022-07-31 22:52:00 68.04 kg [facility] BMI 2022-07-31 22:52:00 28.34 kg/m2 [facility] Systolic blood pressure 2022-07-15 15:32:00 130 mm[Hg] [facility] Diastolic blood pressure 2022-07-15 15:32:00 90 mm[Hg] [facility] Heart rate 2022-07-15 15:31:00 81 /min [facility] Body temperature 2022-07-15 15:31:00 36.94 Irene [facility] Respiratory rate 2022-07-15 15:31:00 16 /min [facility] Body weight 2022-07-15 15:31:00 68.493 kg [facility] BMI 2022-07-15 15:31:00 28.53 kg/m2 [facility] Oxygen saturation in Arterial blood by Pulse oximetry 2022-07-15 15:31:00 99 /min [facility] Systolic blood pressure 2022-06-23 15:26:00 111 mm[Hg] [facility] Diastolic blood pressure 2022-06-23 15:26:00 75 mm[Hg] [facility] Heart rate 2022-06-23 15:26:00 108 /min [facility] Body temperature 2022-06-23 15:26:00 36.83 Irene [facility] Respiratory rate 2022-06-23 15:26:00 18 /min [facility] Body height 2022-06-23 15:26:00 154.9 cm [facility] Body weight 2022-06-23 15:26:00 71.385 kg [facility] BMI 2022-06-23 15:26:00 29.74 kg/m2 [facility] Oxygen saturation in Arterial blood by Pulse oximetry 2022-06-23 15:26:00 99 /min [facility] Systolic blood pressure 2022-05-05 22:05:00 126 mm[Hg] [facility] Diastolic blood pressure 2022-05-05 22:05:00 75 mm[Hg] [facility] Heart rate 2022-05-05 22:05:00 99 /min [facility] Respiratory rate 2022-05-05 22:05:00 16 /min [facility] Oxygen saturation in Arterial blood by Pulse oximetry 2022-05-05 22:05:00 99 /min [facility] Body temperature 2022-05-05 18:24:00 37.11 Irene [facility] Body height 2022-05-05 18:24:00 154.9 cm [facility] Body weight 2022-05-05 18:24:00 54.432 kg [facility] BMI 2022-05-05 18:24:00 22.67 kg/m2 [facility] Systolic blood pressure 2022-04-26 14:28:00 135 mm[Hg] [facility] Diastolic blood pressure 2022-04-26 14:28:00 95 mm[Hg] [facility] Heart rate 2022-04-26 14:28:00 93 /min [facility] Body temperature 2022-04-26 14:28:00 36.89 Irene [facility] Respiratory rate 2022-04-26 14:28:00 18 /min [facility] Body height 2022-04-26 14:28:00 154.9 cm [facility] Body weight 2022-04-26 14:28:00 54.432 kg [facility] BMI 2022-04-26 14:28:00 22.67 kg/m2 [facility] Oxygen saturation in Arterial blood by Pulse oximetry 2022-04-26 14:28:00 100 /min [facility] Systolic blood pressure 2022-04-26 00:21:00 151 mm[Hg] [facility] Diastolic blood pressure 2022-04-26 00:21:00 98 mm[Hg] [facility] Heart rate 2022-04-26 00:21:00 98 /min [facility] Body temperature 2022-04-26 00:21:00 36.72 Irene [facility] Respiratory rate 2022-04-26 00:21:00 18 /min [facility] Body height 2022-04-26 00:21:00 154.9 cm [facility] Body weight 2022-04-26 00:21:00 54.432 kg [facility] BMI 2022-04-26 00:21:00 22.67 kg/m2 [facility] Oxygen saturation in Arterial blood by Pulse oximetry 2022-04-26 00:21:00 100 /min [facility] Systolic blood pressure 2022-04-09 14:39:00 122 mm[Hg] [facility] Diastolic blood pressure 2022-04-09 14:39:00 84 mm[Hg] [facility] Heart rate 2022-04-09 14:39:00 96 /min [facility] Body height 2022-04-09 14:39:00 154.9 cm [facility] Body weight 2022-04-09 14:39:00 60.328 kg [facility] BMI 2022-04-09 14:39:00 25.13 kg/m2 [facility] Oxygen saturation in Arterial blood by Pulse oximetry 2022-04-09 14:39:00 98 /min [facility] Systolic blood pressure 2022-04-07 22:43:36 131 mm[Hg] [facility] Diastolic blood pressure 2022-04-07 22:43:36 83 mm[Hg] [facility] Heart rate 2022-04-07 22:43:36 113 /min [facility] Respiratory rate 2022-04-07 22:43:36 18 /min [facility] Oxygen saturation in Arterial blood by Pulse oximetry 2022-04-07 22:43:36 97 /min [facility] Body temperature 2022-04-07 19:41:00 37.17 Irene [facility] Body height 2022-04-07 19:41:00 154.9 cm [facility] Body weight 2022-04-07 19:41:00 60.328 kg [facility] BMI 2022-04-07 19:41:00 25.13 kg/m2 [facility] Systolic blood pressure 2022-03-24 19:00:00 125 mm[Hg] [facility] Diastolic blood pressure 2022-03-24 19:00:00 86 mm[Hg] [facility] Heart rate 2022-03-24 19:00:00 93 /min [facility] Respiratory rate 2022-03-24 19:00:00 17 /min [facility] Oxygen saturation in Arterial blood by Pulse oximetry 2022-03-24 19:00:00 97 /min [facility] Body temperature 2022-03-24 13:33:00 36.78 Irene [facility] Systolic blood pressure 2022-03-15 19:23:00 128 mm[Hg] [facility] Diastolic blood pressure 2022-03-15 19:23:00 89 mm[Hg] [facility] Heart rate 2022-03-15 19:23:00 104 /min [facility] Body weight 2022-03-15 19:23:00 60.328 kg [facility] BMI 2022-03-15 19:23:00 25.13 kg/m2 [facility] Oxygen saturation in Arterial blood by Pulse oximetry 2022-03-15 19:23:00 98 /min [facility] Systolic blood pressure 2022-03-15 15:02:00 115 mm[Hg] [facility] Diastolic blood pressure 2022-03-15 15:02:00 70 mm[Hg] [facility] Heart rate 2022-03-15 15:02:00 85 /min [facility] Respiratory rate 2022-03-15 15:02:00 20 /min [facility] Oxygen saturation in Arterial blood by Pulse oximetry 2022-03-15 15:02:00 99 /min [facility] Body temperature 2022-03-15 13:38:00 36.94 Irene [facility] Body height 2022-03-15 13:38:00 154.9 cm [facility] Body weight 2022-03-15 13:38:00 54.432 kg [facility] BMI 2022-03-15 13:38:00 22.67 kg/m2 [facility] Systolic blood pressure 2022-03-11 16:30:00 124 mm[Hg] [facility] Diastolic blood pressure 2022-03-11 16:30:00 88 mm[Hg] [facility] Heart rate 2022-03-11 16:30:00 93 /min [facility] Body temperature 2022-03-11 16:30:00 36.67 Irene [facility] Respiratory rate 2022-03-11 16:30:00 14 /min [facility] Oxygen saturation in Arterial blood by Pulse oximetry 2022-03-11 16:30:00 100 /min [facility] Body height 2022-03-11 14:19:00 154.9 cm [facility] Body weight 2022-03-11 14:19:00 58.968 kg [facility] BMI 2022-03-11 14:19:00 24.56 kg/m2 [facility] Systolic blood pressure 2022-02-27 14:14:00 140 mm[Hg] [facility] Diastolic blood pressure 2022-02-27 14:14:00 90 mm[Hg] [facility] Heart rate 2022-02-27 14:14:00 103 /min [facility] Body height 2022-02-27 14:14:00 154.9 cm [facility] 2022-02-27 14:14:00 59.194 kg [facility] BMI 2022-02-27 14:14:00 24.66 kg/m2 [facility] Oxygen saturation in Arterial blood by Pulse oximetry 2022-02-27 14:14:00 100 /min [facility] Systolic blood pressure 2022-02-27 13:19:00 131 mm[Hg] [facility] Diastolic blood pressure 2022-02-27 13:19:00 86 mm[Hg] [facility] Heart rate 2022-02-27 13:19:00 102 /min [facility] Body temperature 2022-02-27 13:19:00 36.33 Irene [facility] Body height 2022-02-27 13:19:00 154.9 cm [facility] Body weight 2022-02-27 13:19:00 58.968 kg [facility] BMI 2022-02-27 13:19:00 24.56 kg/m2 [facility] Oxygen saturation in Arterial blood by Pulse oximetry 2022-02-27 13:19:00 99 /min [facility] Systolic blood pressure 2022-02-21 08:06:00 135 mm[Hg] [facility] Diastolic blood pressure 2022-02-21 08:06:00 97 mm[Hg] [facility] Heart rate 2022-02-21 08:06:00 98 /min [facility] Respiratory rate 2022-02-21 08:06:00 16 /min [facility] Oxygen saturation in Arterial blood by Pulse oximetry 2022-02-21 08:06:00 97 /min [facility] Body temperature 2022-02-21 06:16:00 36.94 Irene [facility] Body height 2022-02-21 06:16:00 154.9 cm [facility] Body weight 2022-02-21 06:16:00 60.963 kg [facility] BMI 2022-02-21 06:16:00 25.39 kg/m2 [facility] Systolic blood pressure 2022 20:08:00 136 mm[Hg] [facility] Diastolic blood pressure 2022 20:08:00 96 mm[Hg] [facility] Heart rate 2022 20:08:00 100 [facility] 20:08:00 20 /min [facility] Oxygen saturation in Arterial blood by Pulse oximetry 2022 20:08:00 98 /min [facility] Body temperature 2022 16:56:00 37.06 Irene [facility] Body weight 2022 16:56:00 54.432 kg [facility] BMI 2022 16:56:00 22.67 kg/m2 [facility] Systolic blood pressure 2022-02-05 14:31:00 128 mm[Hg] [facility] Diastolic blood pressure 2022-02-05 14:31:00 84 mm[Hg] [facility] Heart rate 2022-02-05 14:31:00 86 /min [facility] Body temperature 2022-02-05 14:31:00 37.89 Irene [facility] Respiratory rate 2022-02-05 14:31:00 18 /min [facility] Body height 2022-02-05 14:31:00 154.9 cm [facility] Body weight 2022-02-05 14:31:00 54.432 kg [facility] BMI 2022-02-05 14:31:00 22.67 kg/m2 [facility] Oxygen saturation in Arterial blood by Pulse oximetry 2022-02-05 14:31:00 98 /min [facility] Systolic blood pressure 2022-01-18 14:50:00 144 mm[Hg] [facility] Diastolic blood pressure 2022-01-18 14:50:00 92 mm[Hg] [facility] Heart rate 2022-01-18 14:50:00 94 /min [facility] Respiratory rate 2022-01-18 14:50:00 20 /min [facility] Oxygen saturation in Arterial blood by Pulse oximetry 2022-01-18 14:50:00 99 /min [facility] Body weight 2022-01-18 10:18:00 54.432 kg [facility] BMI 2022-01-18 10:18:00 22.67 kg/m2 [facility] Body temperature 2022-01-18 10:15:00 36.72 Irene [facility] Systolic blood pressure 2022-01-15 15:48:26 125 mm[Hg] [facility] Diastolic blood pressure 2022-01-15 15:48:26 85 mm[Hg] [facility] Heart rate 2022-01-15 15:48:26 95 /min [facility] Respiratory rate 2022-01-15 15:48:26 18 /min [facility] Oxygen saturation in Arterial blood by Pulse oximetry 2022-01-15 15:48:26 98 /min [facility] Body temperature 2022-01-15 13:32:00 37.11 Irene [facility] Body height 2022-01-15 13:32:00 154.9 cm [facility] Body weight 2022-01-15 13:32:00 54.432 kg [facility] BMI 2022-01-15 13:32:00 22.67 kg/m2 [facility] Systolic blood pressure 2022-01-09 00:37:11 127 mm[Hg] [facility] Diastolic blood pressure 2022-01-09 00:37:11 90 mm[Hg] [facility] Heart rate 2022-01-09 00:37:11 94 /min [facility] Body temperature 2022-01-09 00:37:11 37.11 Irene [facility] Respiratory rate 2022-01-09 00:37:11 16 /min [facility] Oxygen saturation in Arterial blood by Pulse oximetry 2022-01-09 00:37:11 97 /min [facility] Body height 2022-01-08 23:03:00 154.9 cm [facility] Body weight 2022-01-08 23:03:00 58.06 kg [facility] BMI 2022-01-08 23:03:00 24.19 kg/m2 [facility] Systolic blood pressure 2021-12-12 18:00:00 126 mm[Hg] [facility] Diastolic blood pressure 2021-12-12 18:00:00 87 mm[Hg] [facility] Heart rate 2021-12-12 18:00:00 86 /min [facility] Body temperature 2021-12-12 18:00:00 36.89 Irene [facility] Respiratory rate 2021-12-12 18:00:00 18 /min [facility] Body height 2021-12-12 18:00:00 154.9 cm [facility] Body weight 2021-12-12 18:00:00 57.153 kg [facility] BMI 2021-12-12 18:00:00 23.81 kg/m2 [facility] Systolic blood pressure 2023-01-14 16:32:00 138 mm[Hg] [facility] Diastolic blood pressure 2023-01-14 16:32:00 84 mm[Hg] [facility] Heart rate 2023-01-14 16:32:00 67 /min [facility] Body temperature 2023-01-14 16:32:00 36.5 Irene [facility] Respiratory rate 2023-01-14 16:32:00 16 /min [facility] Oxygen saturation in Arterial blood by Pulse oximetry 2023-01-14 16:32:00 99 /min [facility] Body height 2023-01-12 09:05:00 154.9 cm [facility] Body weight 2023-01-12 09:05:00 58.968 kg [facility] BMI 2023-01-12 09:05:00 24.56 kg/m2 [facility] Procedures Procedure Date / Time Performed Performing Clinician Source CT ABDOMEN PELVIS WO CONTRAST 2024-08-16 14:27:56 Leonela Veloz [facility] POCT TEST 2024-08-16 13:22:00 Leonela Veloz [facility] LIPASE 2024-08-16 13:17:00 Leonela Veloz [facility] COMP. METABOLIC PANEL ([id number]) 2024-08-16 13:17:00 Leonela Veloz [facility] CBC WITH DIFF 2024-08-16 13:17:00 Leonela Veloz [facility] URINALYSIS 2024-08-16 13:17:00 Leonela Veloz [facility] POCT TEST 2024-05-19 20:10:00 Anamaria Gonzales [facility] LIPASE 2024-05-19 19:53:00 Anamaria Gonzales [facility] COMP. METABOLIC PANEL ([id number]) 2024-05-19 19:53:00 Anamaria Gonzales [facility] CBC WITH DIFF 2024-05-19 19:53:00 Christian Anamaria [facility] URINALYSIS 2024-05-19 19:53:00 Anamaria Gonzales [facility] CT ABDOMEN PELVIS WO CONTRAST 2024-04-19 14:51:33 Rosendo Levy [facility] POCT TEST 2024-04-19 14:21:00 Rosendo Levy [facility] LIPASE 2024-04-19 14:18:00 Rosendo Levy [facility] COMP. METABOLIC PANEL ([id number]) 2024-04-19 14:18:00 Rosendo Levy [facility] CBC WITH DIFF 2024-04-19 14:18:00 Rosendo Levy [facility] URINALYSIS 2024-04-19 14:18:00 Rosendo Levy [facility] XR ANKLE <3 VW LEFT 2024-04-12 18:36:00 Niranjan Neeta [facility] XR FOOT <3 VW LEFT 2024-04-12 18:36:00 Niranjan [facility] XR TIBIA FIBULA 2 VW LEFT 2024-04-12 18:36:00 Niranjan Neeta [facility] CT TRAUMA HEAD WO CONTRAST 2024-04-12 18:27:[address] [facility] CT TRAUMA CERVICAL SPINE WO CONTRAST 2024-04-12 18:27:[address] [facility] CT TRAUMA THORACIC SPINE WO CONTRAST 2024-04-12 18:27:[address]rury [facility] CT TRAUMA LUMBAR SPINE WO CONTRAST 04-12 18:27:49 Niranjan [facility] XR CHEST 1 VW 2024-04-12 15:50:27 Maggie Hamilton [facility] COMP. METABOLIC PANEL ([id number]) 2024-04-12 15:43:00 Maggie Hamilton [facility] CBC WITH DIFF 2024-04-12 15:43:00 Maggie Hamilton [facility] HB ABO GROUPING 2024-04-12 15:43:00 Maggie Hamilton [facility] ER FAST ULTRASOUND 2024-04-12 15:36:51 Maggie Hamilton [facility] MAGNESIUM 2024-03-13 10:20:00 Ellis Burgess [facility] BASIC METABOLIC PANEL (NA, K , CL, CO2, GLUCOSE, BUN, CREATININE, CA) 2024-03-13 10:20:00 Ellis Burgess [facility] CBC WITH DIFF 2024-03-13 10:20:00 Ellis Burgess [facility] FECAL PATHOGENS BY PCR 2024-03-12 17:51:00 [facility]FF[facility]XIN 2024-03-12 17:50:00 [facility] [place] [facility] C. DIFFICILE TOXIN B GENE (TCDB) BY PCR 2024-03-12 17:50:00 [facility] [place] SUPERIOR MESENTERIC ARTERY D UPLEX - BY VASCULAR LAB 2024-03-12 14:06:02 [facility] [place] [facility] 2024-03-12 11:14[facility] BASIC METABOLIC PANEL (NA, K , CL, CO2, GLUCOSE, BUN, CREATININE, CA) 2024-03-12 11:14:00 Mars [facility] CBC WITHOUT DIFF 2024-03-12 11:14:00 Hedytnpaulo [facility] MAGNESIUM 2024-03-11 10:47:00 Kitty [facility] BASIC METABOLIC PANEL (NA, K , CL, CO2, GLUCOSE, BUN, CREATININE, [place]) 2024-03-11 10:47:00 Kitty [facility] CBC WITH DIFF 2024-03-11 10:47:00 Kitty [facility] CT ABDOMEN PELVIS WO CONTRAST 2024-03-10 19:46:10 Venkat [facility] LIPASE 2024-03-10 15:42:00 Venkat [facility] TEST, SERUM 2024-03-10 15:42:00 Fidel [facility] COMP. METABOLIC PANEL (46583) 2024-03-10 15:42:00 Venkat [facility] URINE DRUG (IMMUNOASSAY) - COMPREHENSIVE DRUG SCREEN 2024-03-10 15:42:00 Kitty [facility] CBC WITH DIFF 2024-03-10 15:42:00 Venkat [facility] URINALYSIS 2024-03-10 15:42:00 Venkat [facility] EXTRA TUBE DK. GREEN 2024-03-10 15:42:00 Fidel [facility] CT ABDOMEN PELVIS WO CONTRAST 2024-03-04 13:43:16 Alexander Richard [facility] POCT TEST 2024-03-04 13:14:00 Alexander Richard [facility] LIPASE 2024-03-04 13:13:00 Alexander Richard [facility] COMP. METABOLIC PANEL (21945) 2024-03-04 13:13:00 Alexander Richard [facility] CBC WITH DIFF 2024-03-04 13:13:00 Alexander Richard [facility] URINALYSIS 2024-03-04 13:13:00 Alexander Richard [facility] ENDOSCOPY PROCEDURE DOCUMENTATION 2023-05 018 14:46:53 Doctor Unassigned, [place] [facility] FLEXIBLE SIGMOIDOSCOPY (ENDO) 2024-02-27 15:42:37 Hany Lee [facility] FLEXIBLE SIGMOIDOSCOPY (ENDO) 2024-02-27 15:42:37 Hany Lee [facility] EGD (ENDO) 2024-02-27 15:39:44 Hany Lee [facility] EGD (ENDO) 2024-02-27 15:39:44 Hany Lee [facility] ESOPHAGOGASTRODUODENOSCOPY 2024-02-27 14:11:00 Chitra Jas [facility] FLEXIBLE SIGMOIDOSCOPY 2024-02-27 14:11:00 Jas Buenrostro [facility] MAGNESIUM 2024-02-27 09:37:00 Jose Carlos Urbina [facility] HEPATIC FUNCTION PANEL (8007 6) (ALB,T.PRO,BILI T,BU/BC,ALT,AST,ALK PHOS) 2024-02-27 09:37:00 Jose Carlos Urbina [facility] BASIC METABOLIC PANEL (NA, K , CL, CO2, GLUCOSE, BUN, CREATININE, CA) 2024-02-27 09:37:00 Jose Carlos Urbina [facility] CBC WITH DIFF 2024-02-27 09:37:00 Jose Carlos Urbina [facility] MAGNESIUM 2024-02-27 09:37:00 Jose Carlos Urbina [facility] HEPATIC FUNCTION PANEL (8007 6) (ALB,T.PRO,BILI T,BU/BC,ALT,AST,ALK PHOS) 2024-02-27 09:37:00 Jose Carlos Urbina [facility] BASIC METABOLIC PANEL (NA, K , CL, CO2, GLUCOSE, BUN, CREATININE, CA) 2024-02-27 09:37:00 Jose Carlos Urbina [facility] CBC WITH DIFF 2024-02-27 09:37:00 Jose Carlos Urbina [facility] CALPROTECTIN, FECAL 2024-02-26 22:49:00 Jose Carlos Urbina Artur [facility] CALPROTECTIN, FECAL 2024-02-26 22:49:00 Jose Carlos Urbina [facility] XR KUB 2024-02-26 20:00:00 Jose Carlos Urbina [facility] XR KUB 2024-02-26 20:00:00 Jose Carlos Urbina [facility] MAGNESIUM 2024-02-26 16:17:00 Chitra [facility] HEPATIC FUNCTION PANEL (8007 6) (ALB,T.PRO,BILI T,BU/BC,ALT,AST,ALK PHOS) 2024-02-26 16:17:00 Chitra [facility] BASIC METABOLIC PANEL (NA, K , CL, CO2, GLUCOSE, BUN, CREATININE, CA) 2024-02-26 16:17:00 Chitra [facility] PROTHROMBIN TIME / INR 2024-02-26 16:17:00 [facility] 2024-02-26 16:17:00 Chitra [facility] HEPATIC FUNCTION PANEL (8007 6) (ALB,T.PRO,BILI T,BU/BC,ALT,AST,ALK PHOS) 2024-02-26 16:17:00 Chitra [facility] BASIC METABOLIC PANEL (NA, K , CL, CO2, GLUCOSE, BUN, CREATININE, CA) 2024-02-26 16:17:00 Chitra [facility] PROTHROMBIN TIME / INR 2024-02-26 16:17:00 Chitra Naty [facility] MR ABDOMEN W WO CONTRAST MRCP 2024-02-25 17:15:21 [facility] MR [facility]BDOMEN W WO CONTRAST MRCP 2024-02-25 17:15:21 [facility] CREATINE KINASE 2024-02-25 10:52:00 [facility] (8007 6) (ALB,T.PRO,BILI T,BU/BC,ALT,AST,ALK PHOS) 2024-02-25 10:52:00 Jose Carlos Urbina [facility] BASIC METABOLIC PANEL (NA, K , CL, CO2, GLUCOSE, BUN, CREATININE, CA) 2024-02-25 10:52:00 Jose Carlos Urbina [facility] CREATINE KINASE 2024-02-25 10:52:00 [facility]EL (8007 6) (ALB,T.PRO,BILI T,BU/BC,ALT,AST,ALK PHOS) 2024-02-25 10:52:00 Jose Carlos Urbina [facility] BASIC METABOLIC PANEL (NA, K , CL, CO2, GLUCOSE, BUN, CREATININE, CA) 2024-02-25 10:52:00 Jose Carlos Urbina [facility] MAGNESIUM 2024-02-24 09:54:00 Naty Buenrostro [facility] HEPATIC FUNCTION PANEL (8007 6) (ALB,T.PRO,BILI T,BU/BC,ALT,AST,ALK PHOS) 2024-02-24 09:54:00 Jose Carlos Urbina [facility] BASIC METABOLIC PANEL (NA, K , CL, CO2, GLUCOSE, BUN, CREATININE, CA) 2024-02-24 09:54:00 Jose Carlos Urbina [facility] CBC WITH DIFF 2024-02-24 09:54:00 Naty Buenrostro [facility] MAGNESIUM 2024-02-24 09:54:00 [facility] HEPATIC FUNCTION PANEL (8007 6) (ALB,T.PRO,BILI T,BU/BC,ALT,AST,ALK PHOS) 2024-02-24 09:54:00 JoseC arlos Urbina [facility] BASIC METABOLIC PANEL (NA, K , CL, CO2, GLUCOSE, BUN, CREATININE, CA) 2024-02-24 09:54:00 Jose Carlos Urbina [facility] CBC WITH DIFF 2024-02-24 09:54:00 Naty Buenrostro [facility] POCT GLUCOSE (AUTOMATED) 2024-02-24 01:34:00 Hany Lee [facility] POCT GLUCOSE (AUTOMATED) 2024-02-24 01:34:00 Hany Lee [facility] HEPATIC FUNCTION PANEL (8007 6) (ALB,T.PRO,BILI T,BU/BC,ALT,AST,ALK PHOS) 2024-02-23 17:51:00 Chitra [facility] CBC WITH DIFF 2024-02-23 17:51:00 Chitra [facility] HAV ANTIBODY (IGG AND IGM) 2024-02-23 17:51:00 Chitra [facility] ENDOMYSIAL AB, IGA BY IFA 2024-02-23 17:51:00 Chitra [facility] VITAMIN D, 25-OH 2024-02-23 17:51:00 Chitra [facility] HEPATIC FUNCTION PANEL (8007 6) (ALB,T.PRO,BILI T,BU/BC,ALT,AST,ALK PHOS) 2024-02-23 17:51:00 Chitra [facility] CBC WITH DIFF 2024-02-23 17:51:00 Chitra [facility] HAV ANTIBODY (IGG AND IGM) 2024-02-23 17:51:00 Chitra [facility] ENDOMYSIAL AB, IGA BY IFA 2024-02-23 17:51:00 Chitra [facility] VITAMIN D, 25-OH 2024-02-23 17:51:00 Chitra [facility] INFLUENZA A/B RSV COVID NAAT 2024-02-22 20:12:00 [facility] COVID INTERPRETATION 2024-02-22 20:12:00 [facility]/B RSV COVID NAAT 2024-02-22 20:12:00 [facility] COVID INTERPRETATION 2024-02-22 20:12:00 Naty Buenrostro [facility] XR CHEST 2 VW 2024-02-22 17:16:00 [place], Adriana [facility] XR CHEST 2 VW 2024-02-22 17:16:00 [place], [facility] US ABDOMEN LIMITED 2024-02-22 16:59:52 [place], [facility] US ABDOMEN LIMITED 2024-02-22 16:59:52 [place], [facility] LIPASE 2024-02-22 15:19:00 Stephanie [facility] TEST, SERUM 2024-02-22 15:19:00 Stephanie [facility] C-REACTIVE PROTEIN 2024-02-22 15:19:00 Chitra [facility] TROPONIN I 2024-02-22 15:19:00 Stephanie [facility] HEPATIC FUNCTION PANEL (8007 6) (ALB,T.PRO,BILI T,BU/BC,ALT,AST,ALK PHOS) 2024-02-22 15:19:00 [facility] COMP. METABOLIC PANEL (71256) 2024-02-22 15:19:00 Stephanie [facility] URINE DRUG (IMMUNOASSAY) - COMPREHENSIVE DRUG SCREEN 2024-02-22 15:19:00 [facility] SEDIMENTATION RATE 2024-02-22 15:19:00 [facility] CBC WITH DIFF 2024-02-22 15:19:00 [facility]INALYSIS 2024-02-22 15:19:00 [facility] ANTIBODY 2024-02-22 15:19:00 [facility] HEPATITIS B SURFACE ANTIGEN 2024-02-22 15:19:00 Chitra [facility] HCV ANTIBODY 2024-02-22 15:19:00 Chitra [facility] HBC ANTIBODY (IGM & IGG) 2024-02-22 15:19:00 Chitra [facility] HIV 1/2 AG-AB WITH REFLEX 2024-02-22 15:19:00 Chitra [facility] DEAMIDATED GLIADIN IGG 2024-02-22 15:19:00 Chitra [facility] LIPASE 2024-02-22 15:19:00 [facility] TEST, SERUM 2024-02-22 15:19:00 [facility] C-REACTIVE PROTEIN 2024-02-22 15:19:00 Chitra [facility] TROPONIN I 2024-02-22 15:19:00 Stephanie [facility] HEPATIC FUNCTION PANEL (8007 6) (ALB,T.PRO,BILI T,BU/BC,ALT,AST,ALK PHOS) 2024-02-22 15:19:00 Chitra [facility] COMP. METABOLIC PANEL (44936) 2024-02-22 15:19:00 [facility] URINE DRUG (IMMUNOASSAY) - COMPREHENSIVE DRUG SCREEN 2024-02-22 15:19:00 Chitra [facility] SEDIMENTATION RATE 2024-02-22 15:19:00 Chitra [facility] CBC WITH DIFF 2024-02-22 15:19:00 [facility] URINALYSIS 2024-02-22 15:19:00 Stephanie [facility] HEPATITIS B SURFACE ANTIBODY 2024-02-22 15:19:00 Chitra [facility] HEPATITIS B SURFACE ANTIGEN 2024-02-22 15:19:00 [facility] HCV ANTIBODY 2024-02-22 15:19:00 Chitra [facility] HBC ANTIBODY (IGM & IGG) 2024-02-22 15:19:00 [facility] HIV 1/2 AG-AB WITH REFLEX 2024-02-22 15:19:00 Chitra [facility] DEAMIDATED GLIADIN IGG 2024-02-22 15:19:00 Chitra [facility] COMP. METABOLIC PANEL (59845) 2023-05-19 17:22:00 [facility] CT ABDOMEN PELVIS W CONTRAST 2023-05-19 15:59:54 [facility] LIPASE 2023-05-19 15:43:00 [facility] CBC WITH DIFF 2023-05-19 15:43:00 [facility] URINALYSIS 2023-05-19 15:32:00 [facility] POCT TEST 2023-05-19 15:31:00 [facility] CONSENT/REFUSAL FOR DIAGNOSI S AND TREATMENT 2023-05-19 14:37:15 Doctor Unassigned, [place] [facility] PHOSPHORUS 2023-01-15 08:15:00 Benita Rockwell Daphnie [facility] MAGNESIUM 2023-01-15 08:15:00 Benita Rocwkell Daphnie [facility] BASIC METABOLIC PANEL (NA, K , CL, CO2, GLUCOSE, BUN, CREATININE, CA) 2023-01-15 08:15:00 Benita Rockwell Daphnie [facility] CBC WITH DIFF 2023-01-15 08:15:00 Benita Rockwell Daphnie [facility] PROTHROMBIN TIME / INR 2023-01-15 08:15:00 Benita Rockwell Daphnie [facility] MAGNESIUM 2023-01-14 10:14:00 [place], Benita [facility] PHOSPHORUS 2023-01-14 10:14:00 [facility] MET[facility]OLIC PANEL (NA, K , CL, CO2, GLUCOSE, BUN, CREATININE, CA) 2023-01-14 10:14:00 [facility] WITH DIFF 2023-01-14 10:14:[address] [facility] PHOSPHORUS 2023-01-14 10:14:00 [facility]UM 2023-01-14 10:14:[address] [facility] BASIC METABOLIC PANEL (NA, K , CL, CO2, GLUCOSE, BUN, CREATININE, CA) 2023-01-14 10:14:[address] [facility] CBC WITH DIFF 2023-01-14 10:14:[address] [facility] CBC WITH DIFF 2023-01-13 10:45:00 Vaishnavi, [facility] BASIC METABOLIC PANEL (NA, K , CL, CO2, GLUCOSE, BUN, CREATININE, CA) 2023-01-13 10:45:00 Vaishnavi, [facility] MAGNESIUM 2023-01-13 10:45:00 Vaishnavi, [facility] PHOSPHORUS 2023-01-13 10:45:00 Vaishnavi, [facility] HEPATIC FUNCTION PANEL (8007 6) (ALB,T.PRO,BILI T,BU/BC,ALT,AST,ALK PHOS) 2023-01-13 10:45:00 Vaishnavi, [facility] PHOSPHORUS 2023-01-13 10:45:00 Vaishnavi, [facility] MAGNESIUM 2023-01-13 10:45:00 Vaishnavi, [facility] HEPATIC FUNCTION PANEL (8007 6) (ALB,T.PRO,BILI T,BU/BC,ALT,AST,ALK PHOS) 2023-01-13 10:45:00 Vaishnavi, [facility] BASIC METABOLIC PANEL (NA, K , CL, CO2, GLUCOSE, BUN, CREATININE, CA) 2023-01-13 10:45:00 Vaishnavi, [facility] CBC WITH DIFF 2023-01-13 10:45:00 Vaishnavi, [facility] GLUCOSE BODY FLUID 2023-01-12 20:44:00 Vaishnavi, [facility] BODY FLUID MANUAL DIFF 2023-01-12 20:44:00 Vaishnavi, [facility] T.PROTEIN BODY FLUID 2023-01-12 20:44:00 Vaishnavi, [facility] ASPIRATE OR ABSCESS CULTURE(AEROBIC/ANAEROBIC) 2023-01-12 20:44:00 Vaishnavi, [facility] LDH TOTAL BODY FLUID 2023-01-12 20:44:00 Vaishnavi, [facility] GLUCOSE BODY FLUID 2023-01-12 20:44:00 Vaishnavi, [facility] T.PROTEIN BODY FLUID 2023-01-12 20:44:00 Vaishnavi, [facility] BODY FLUID DIRECT COUNT 2023-01-12 20:44:00 Vaishnavi, [facility] ASPIRATE OR ABSCESS CULTURE(AEROBIC/ANAEROBIC) 2023-01-12 20:44:00 Vaishnavi, [facility] LDH TOTAL BODY FLUID 2023-01-12 20:44:00 Vaishnavi, [facility] PROTHROMBIN TIME / INR 2023-01-12 08:13:00 Vaishnavi, [facility] PROTHROMBIN TIME / INR 2023-01-12 08:13:00 Vaishnavi, [facility] COMP. METABOLIC PANEL ([id number]) 2023-01-12 03:49:00 Ricky Zehra [facility] COMP. METABOLIC PANEL (39332) 2023-01-12 03:49:00 Zehra García [facility] CT ABDOMEN PELVIS W CONTRAST 2023-01-12 03:32:06 Zehra García Joana [facility] CT ABDOMEN PELVIS W CONTRAST 2023-01-12 03:32:06 Zehra García [facility] POCT TEST 2023-01-12 03:02:00 Zehra García [facility] POCT TEST 2023-01-12 03:02:00 Zehra García [facility] URINALYSIS 2023-01-12 02:56:00 Zehra García [facility] LIPASE 2023-01-12 02:56:00 [facility] 2023-01-12 02:56:00 [facility] WITH DIFF 2023-01-12 02:56:00 [facility] EXTRA TUBE ORANGE 2023-01-12 02:56:00 [facility]AV 2023-01-12 02:56:00 [facility]-12 02:56:00 Ricky [facility] TOTAL BETA HCG ASSAY 2023-01-12 02:56:00 Zehra García [facility] CBC WITH DIFF 2023-01-12 02:56:00 [facility] 2023-01-12 02:56:00 [facility] EXTRA TUBE LAV 2023-01-12 02:56:00 [facility] TUBE ORANGE 2023-01-12 02:56:00 Artur [facility] CONSENT/REFUSAL FOR DIAGNOSI S AND TREATMENT 2023-01-12 01:46:10 Doctor Unassigned, [place] [facility] CONSENT/REFUSAL FOR DIAGNOSI S AND TREATMENT 2023-01-12 01:46:10 Doctor Unassigned, [place] [facility] ASSIGNMENT OF BENEFITS 2022-11-21 19:49:02 Doctor Unassigned, [place] [facility] ASSIGNMENT OF BENEFITS 2022-11-21 19:49:02 Doctor Unassigned, [place] [facility] CONSENT/REFUSAL FOR DIAGNOSI S AND TREATMENT 2022-11-21 18:03:25 Doctor Unassigned, [place] [facility] CONSENT/REFUSAL FOR DIAGNOSI S AND TREATMENT 2022-11-21 18:03:25 Doctor Unassigned, [place] [facility] EMERGENCY SERVICES AGREEMENT S AND AUTHORIZATIONS 2022-11-21 05:01:00 Doctor Unassigned, [place] [facility] CONSENT/REFUSAL FOR DIAGNOSI S AND TREATMENT 2022-09-05 13:42:02 Doctor Unassigned, [place] [facility] LIPASE 2022-07-31 23:13:00 [facility], SER[facility] 2022-07-31 23:13:00 Blane [facility] COMP. METABOLIC PANEL ([id number]) 2022-07-31 23:13:00 Blane [facility] CBC WITH DIFF 2022-07-31 23:13:00 Blane [facility] CONSENT/REFUSAL FOR DIAGNOSI S AND TREATMENT 2022-07-31 22:49:17 Doctor Unassigned, [place] [facility] XR ANKLE 3+ VW RIGHT 2022-07-15 16:00:00 Beba Kaur [facility] XR FOOT 3+ VW RIGHT 2022-07-15 16:00:00 Beba Kaur [facility] XR FOOT 3+ VW RIGHT 2022-07-15 16:00:00 Beba Kaur [facility] PATIENT FINANCIAL POLICY 2022-07-15 15:25:53 Doctor Unassigned, [place] [facility] POCT MOLECULAR STREP 2022-06-23 16:06:00 Unknown, Attending [facility] ASSIGNMENT OF BENEFITS 2022-06-23 15:18:28 Doctor Unassigned, [place] [facility] COMP. METABOLIC PANEL ([id number]) 2022-05-05 19:14:00 Karon Norton [facility] CBC WITH DIFF 2022-05-05 19:14:00 Karon Norton [facility] POCT TEST 2022-05-05 19:00:00 Karon Norton [facility] URINALYSIS 2022-05-05 18:58:00 Karon Norton [facility] CT ABDOMEN PELVIS WO CONTRAST 2022-04-26 15:11:00 Singer [facility] COMP. METABOLIC PANEL ([id number]) 2022-04-26 14:49:00 Singer [facility] CBC WITH DIFF 2022-04-26 14:49:00 Singer [facility] URINALYSIS 2022-04-26 14:49:00 Singer [facility] POCT TEST 2022-04-26 14:45:00 Singer [facility] CONSENT/REFUSAL FOR DIAGNOSI S AND TREATMENT 2022-04-26 14:22:29 Doctor Unassigned, [place] [facility] POCT TEST 2022-04-26 01:22:00 Singer [facility] ASSIGNMENT OF BENEFITS 2022-04-26 00:54:02 Doctor Unassigned, [place] [facility] URINALYSIS 2022-04-26 00:45:00 Singer [facility] CONSENT/REFUSAL FOR DIAGNOSI S AND TREATMENT 2022-04-26 00:16:47 Doctor Unassigned, [place] [facility] BASIC METABOLIC PANEL (NA, K , CL, CO2, GLUCOSE, BUN, CREATININE, CA) 2022-04-07 22:35:00 Olamide Garvin [facility] CBC WITH DIFF 2022-04-07 22:35:00 Olamide Garvin [facility] URINALYSIS 2022-04-07 21:36:00 Olamide Garvin [facility] URINE DRUG (IMMUNOASSAY) - COMPREHENSIVE DRUG SCREEN W/O REFLEX 2022-04-07 21:36:00 Olamide Garvin [facility] CONSENT/REFUSAL FOR DIAGNOSI S AND TREATMENT 2022-04-07 19:29:15 Doctor Unassigned, [place] [facility] POCT TEST 2022-03-24 14:07:00 Kellie Piper [facility] CONSENT/REFUSAL FOR DIAGNOSI S AND TREATMENT 2022-03-24 13:27:20 Doctor Unassigned, [place] [facility] CT ABDOMEN PELVIS WO CONTRAST 2022-03-15 14:09:04 Lydia Colmenares [facility] URINALYSIS 2022-03-15 13:53:00 Lydia Colmenares [facility] POCT TEST 2022-03-15 13:52:00 Lydia Colmenares [facility] CONSENT/REFUSAL FOR DIAGNOSI S AND TREATMENT 2022-03-15 13:37:02 Doctor Unassigned, [place] [facility] POCT TEST 2022-03-11 14:59:00 Angelica Viveros [facility] FLU VACC (), 6 MO-6 4 YRS, .5ML, IM, QUAD (FLUCELVAX) 2022-02-27 13:34:55 Ca Martinez [facility] NOTICE OF PRIVACY PRACTICES 2022-02-21 06:06:30 Doctor Unassigned, [place] [facility] CONSENT/REFUSAL FOR DIAGNOSI S AND TREATMENT 2022-02-21 06:03:41 Doctor Unassigned, [place] [facility] XR ANKLE <3 VW RIGHT 2022 17:56:42 Maggie Hamilton [facility] CT ABDOMEN PELVIS W CONTRAST 2022 17:44:17 Maggie Hamilton [facility] CT TRAUMA CERVICAL SPINE WO CONTRAST 2022 17:43:49 Maggie Hamilton [facility] POCT TEST 2022 17:27:00 Maggie Hamilton [facility] COMP. METABOLIC PANEL ([id number]) 2022 17:17:00 Maggie Hamilton [facility] CBC WITH DIFF 2022 17:17:00 Maggie Hamilton [facility] CONSENT/REFUSAL FOR DIAGNOSI S AND TREATMENT 2022 16:53:13 Doctor Unassigned, [place] [facility] US GALL BLADDER 2022-01-18 12:31:09 Rosendo Levy [facility] US PELVIS COMPLETE WITH TRANSVAGINAL 2022-01-18 12:21:13 Melvin Zhao [facility] CT ABDOMEN PELVIS W CONTRAST 2022-01-18 11:20:50 Melvin Zhao [facility] POCT TEST 2022-01-18 10:57:00 Juan Kennedy [facility] COVID-19 (ID NOW RAPID TESTING) 10:57:00 Juan Kennedy [facility] URINALYSIS 2022-01-18 10:47:00 Juan Kennedy [facility] LIPASE 2022-01-18 10:29:00 Juan Kennedy [facility] TEST, SERUM 2022-01-18 10:29:00 Juan Kennedy [facility] HEPATIC FUNCTION PANEL (8007 6) (ALB,T.PRO,BILI T,BU/BC,ALT,AST,ALK PHOS) 2022-01-18 10:29:00 Juan Kennedy [facility] BASIC METABOLIC PANEL (NA, K , CL, CO2, GLUCOSE, BUN, CREATININE, CA) 2022-01-18 10:29:00 Juan Kennedy [facility] CBC WITH DIFF 2022-01-18 10:29:00 Juan Kennedy [facility] CONSENT/REFUSAL FOR DIAGNOSI S AND TREATMENT 2022-01-18 10:13:31 Doctor Unassigned, [place] [facility] CT HEAD WO CONTRAST 2022-01-15 15:22:29 Maura Cox [facility] TEST, SERUM 2022-01-15 14:36:[address] [facility] BASIC METABOLIC PANEL (NA, K , CL, CO2, GLUCOSE, BUN, CREATININE, CA) 2022-01-15 14:36:00 Maura Cox [facility] CBC WITH DIFF 2022-01-15 14:36:[address] [facility] CONSENT/REFUSAL FOR DIAGNOSI S AND TREATMENT 2022-01-15 13:28:12 Doctor Unassigned, [place] [facility] XR CERVICAL SPINE 4 VW 2022-01-09 00:29:16 Gabriela [facility] XR LUMBAR SPINE 4 VW 2022-01-09 00:29:16 Gabriela [facility] XR SPINE THORACIC 3 VW 2022-01-09 00:29:16 Gabriela [facility] URINALYSIS 2022-01-08 23:50:00 Humberto Ochoa [facility] CONSENT/REFUSAL FOR DIAGNOSI S AND TREATMENT 2022-01-08 22:51:08 Doctor Unassigned, [place] [facility] GALV ONLY - VAGINAL PATHOGEN S BY NUCLEIC ACID TESTING 2021-12-12 18:37:00 Prasanna Vargas [facility] URINE CULTURE 2021-12-12 18:32:00 Prasanna Vargas [facility] POCT TEST 2021-12-12 18:31:00 Prasanna Vargas [facility] POCT URINALYSIS W/O SPECIFIC GRAVITY 2021-12-12 18:31:00 Prasanna Vargas [facility] Encounters Start Date/Time End Date/Time Encounter Type Admission Type Attending [facility] Care Facility Care Department Encounter ID Source 2024-08-04 08:31:01 Outpatient Tiara Dorado [facility] [id number] [facility] 2021-03-14 03:14:31 Emergency [facility] [id number] [facility] ity [facility] 2021-03-13 20:05:20 [facility] [id number] [facility] ity [facility] 2021-03-13 12:48:28 Emergency [facility] [id number] [facility] ity [facility] 2021-03-13 02:43:51 Emergency [facility] [id number] [facility] ity [facility] 2021-03-13 00:27:09 Emergency [facility] [id number] [facility] ity [facility] 2021-03-12 22:10:36 Emergency [facility] [id number] [facility] ity [facility] 2021-03-12 20:04:05 Emergency [facility] [id number] [facility] ity [facility] 2021-03-12 15:25:05 Emergency [facility] [id number] [facility] ity [facility] 2021-03-12 11:43:36 Emergency [facility] [id number] [facility] it[facility] 2021-03-12 07:41:37 Emergency [facility] [id number] [facility] 2021-03-12 05:43:47 Emergency [facility] [place] [id number] [facility] 2021-03-12 03:43:41 Emergency [facility] [id number] [facility] 2021-03-12 01:31:27 Emergency [facility] [id number] [facility] 2021-03-12 00:56:44 Emergency X [facility] ERT [id number] [facility] 2021-03-12 00:56:31 Emergency [facility] [id number] [facility] 2021-03-11 17:47:02 Emergency [facility] [id number] [facility] 2021-03-11 16:27:15 Emergency [facility] [id number] [facility] 2021-03-11 12:00:58 Emergency [facility] [place] [id number] [facility] 2021-03-11 10:33:59 Emergency [facility] [place] [id number] [facility] 2021-03-11 01:36:52 Emergency [facility] [place] [id number] [facility] 2021-03-10 23:35:34 Emergency [facility] [id number] [facility] 2021-03-10 19:06:16 Emergency [facility] [id number] [facility] 2021-03-10 12:39:47 Emergency [facility] [id number] [facility] 2021-03-10 06:54:04 [place] [id number] [facility] 2021-03-09 13:25:44 Outpatient P [facility] [id number] [facility] 2021-03-09 13:08:01 Outpatient [facility] [id number] [facility] 2021-03-09 12:37:25 Outpatient [facility] [id number] [facility] 2021-03-09 11:51:20 Outpatient [facility] [id number] [facility] 2024-08-16 08:05:00 2024-08-16 10:57:00 Emergency X NANCYERJOSIE , LEONELA NANCYERJOSIE , LEONELA [facility] ERT [id number] [facility] 2024-08-16 08:05:00 2024-08-16 10:57:00 Emergency Nancyerjosie , Leonela Yarbrough [facility] 1.114 350.1.13.10 4.2.7.2.686 [id number] [facility] 2024-08-02 10:16:00 2024-08-02 12:25:00 Emergency X ALEKSANDR STEWART JULIO [facility] ERT [id number] [facility] 2024-08-02 10:16:00 2024-08-02 12:25:00 Emergency Aleksandr Stewart [facility] 1.114 350.1.13.10 4.2.7.2.686 [id number] [facility] 2024-07-27 17:21:07 2024-07-27 17:21:07 Outpatient [facility] [id number] Willis Gil 2024-02-28 00:00:00 2024-06-27 06:46:51 Orders Only Doctor Unassigned, [place] Doctor Unassigned, [place] [facility] 1.114 350.1.13.10 4.2.7.2.686 [id number] [facility] 2022-08-27 00:00:00 2024-06-27 02:42:04 Orders Only Palak Marrufo Perla [facility]O [facility] 1..114 350.1.13.10 4.2.7.2.686 [id number] [facility] 2022-08-28 00:00:00 2024-06-27 02:42:02 Orders Only Marrufo, Palak Marrufo, Palka [facility] ANGL[facility]OBERTA TALYA?[facility] 1.2.840.114 350.1.13.10 4.2.7.2.686 [id number] [facility] 2022-08-29 00:00:00 2024-06-27 02:41:59 Orders Only Marrufo, Palak Marrufo, Palak [facility] TALYA?[facility] OFF[facility] 1.2.840.114 350.1.13.10 4.2.7.2.686 [id number] [facility] 2022-09-24 00:00:00 2024-06-27 02:41:25 Orders Only Marrufo, Palak Marrufo, Palak [facility] TALYA?[facility] 1.2.840.114 350.1.13.10 4.2.7.2.686 [id number] [facility] 2022-09-27 00:00:00 2024-06-27 02:41:19 Orders Only Marrufo, Palak Marrufo, Palak [facility] TALYA?[facility] 1.2.840.114 350.1.13.10 4.2.7.2.686 [id number] [facility] 2022-10-02 00:00:00 2024-06-27 02:41:14 Orders Only Marrufo, Palak Marrufo, Palak [facility] TALYA?[facility] MED[facility] OFF[facility] BU[facility] 1.2.840.114 350.1.13.10 4.2.7.2.686 [id number] [facility] 2022-11-15 00:00:00 2024-06-27 02:40:23 Orders Only Marrufo, Palak Marrufo, Palak [facility] TALYA?[facility] MED[facility] OFF[facility] BU[facility] 1.2.840.114 350.1.13.10 4.2.7.2.686 [id number] [facility] 2024-05-19 12:49:00 2024-05-19 16:37:00 Emergency X JOHN GONZALESANAMARIA LOZANO [facility] ERT [id number] [facility] 2024-05-19 12:49:00 2024-05-19 16:37:00 Emergency Anamaria Gonzales [facility] 1.2840.114 350.1.13.10 4.2.7.2.686 [id number] [facility] 2024-04-19 07:55:00 2024-04-19 09:58:00 Emergency X ROSENDO LEVY BRENT [facility] ERT [id number] [facility] 2024-04-19 07:55:00 2024-04-19 09:58:00 Emergency Rosendo Levy [facility] 1.2840.114 350.1.13.10 4.2.7.2.686 [id number] [facility] 2024-03-18 00:00:00 2024-04-18 18:19:35 Patient Secure Msg Doctor Unassigned, [place] Doctor Unassigned, [place] [facility] 1.2840.114 350.1.13.10 4.2.7.2.686 [id number] [facility] 2024-04-12 11:54:00 2024-04-12 14:39:00 Emergency T ARAM PARADA [facility] STR [id number] [facility] 2024-04-12 11:54:00 2024-04-12 14:39:00 Emergency Aram Parada [facility] ([place] 1.20.114 350.1.13.10 4.2.7.2.686 [id number] [facility] 2024-04-12 09:23:00 2024-04-12 10:42:00 Emergency X MAGGIE HAMILTON, MAGGIE [facility] ERT [id number] [facility] 2024-04-12 09:23:00 2024-04-12 10:42:00 Emergency Onesimo, Olamide Maggie Wise [facility] 1.840.114 350.1.13.10 4.2.7.2.686 [id number] [facility] 2024-03-10 09:43:00 2024-03-13 10:40:00 Inpatient X BALDEV, TAJ OZUNA [facility] [id number] [facility] 2024-03-10 09:43:00 2024-03-13 10:40:00 Hospital Encounter Fidel, Alfredo Manuel, Jose Mao, Taj Milner [facility] 1.84.114 350.1.13.10 4.2.7.2.686 [id number] [facility] 2024-03-06 00:00:00 2024-03-06 08:40:48 Transition of Care Marlys Odell, Marlys MELO 1.840.114 350.1.13.10 4.2.7.2.686 [id number] [facility] 2024-03-04 06:46:00 2024-03-05 16:30:00 Outpatient X JOSE MANDUJANO MYRNA [facility] [id number] [facility] 2024-03-04 06:46:00 2024-03-05 16:30:00 Emergency Jesus Muñoz Myrna [facility] 1.840.114 350.1.13.10 4.2.7.2.686 [id number] [facility] 2024-03-03 00:00:00 2024-03-04 15:45:46 Patient Secure Msg Saulo Buenrostrohif [facility] 1.2.840.114 350.1.13.10 4.2.7.2.686 [id number] [facility] 2024-03-03 00:00:00 2024-03-03 12:14:14 Telephone Giselle Vance [facility] ([place] 1.2.840.114 350.1.13.10 4.2.7.2.686 [id number] [facility] 2024-02-28 00:00:00 2024-02-28 09:08:41 Transition of Care Tc Renteria Michele A [place] 1.2.840.114 350.1.13.10 4.2.7.2.686 [id number] [facility] 2024-02-22 09:35:00 2024-02-27 16:59:00 Inpatient X HANY LEE [facility] NATTY [id number] [facility] 2024-02-22 09:35:00 2024-02-27 16:59:00 Hospital Encounter Stephanie Warren, Hany Quiroz [facility] 1.2840.114 350.1.13.10 4.2.7.2.686 [id number] [facility] 2024-02-27 09:40:00 2024-02-27 10:51:00 Surgery Jas Buenrostro [facility] 1.2840.114 350.1.13.10 4.2.7.2.686 [id number] [facility] 2024-02-27 09:22:00 2024-02-27 10:26:00 Anesthesia Event Peter Reece [facility] 1.2840.114 350.1.13.10 4.2.7.2.686 [id number] [facility] 2024-02-24 00:00:00 2024-02-24 09:18:09 Telephone Naty Buenrostro [facility] 1.2.840.114 350.1.13.10 4.2.7.2.686 [id number] [facility] 2023-12-23 15:39:53 2023-12-23 15:39:53 Outpatient [facility] [id number] Willis Rivera Jeffery 2023-12-08 14:51:46 2023-12-08 14:51:46 Outpatient [facility] [id number] Willis Rivera Jeffery 2023-09-12 00:00:00 2023-09-12 00:00:00 Outpatient R ROLDAN WALKER [facility] [id number] [facility] 2023-08-26 00:00:00 2023-08-26 00:00:00 Transition of Care OdellMarlys WAIApril OMER MELO 1.2.840.114 350.1.13.10 4.2.7.2.686 [id number] [facility] 2023-08-23 08:31:00 2023-08-24 13:25:00 Outpatient X ROLDAN WALKER [facility] [id number] [facility] 2023-08-04 14:56:23 2023-08-04 14:56:23 Outpatient [facility] [id number] Willis Gil 2023-06-27 14:47:45 2023-06-27 14:47:45 Outpatient [facility] [id number] Willis Rivera Jeffery 2023-05-19 09:04:00 2023-05-19 12:20:00 Emergency X TOD AGUILAR [facility] E[facility] [id number] [facility] 2023-05-19 09:04:00 2023-05-19 12:20:00 Emergency Tod Aguilar [facility] 1.2.840.114 350.1.13.10 4.2.7.2.686 [id number] [facility] 2023-04-05 00:00:00 2023-04-05 00:00:00 Patient Secure Prasanna Kang [facility] 1.2840.114 350.1.13.10 4.2.7.2.686 [id number] [facility] 2023-02-14 12:59:23 2023-02-14 12:59:23 Outpatient [facility] [id number] Williszaira Gil 2023-02-06 18:19:02 2023-02-06 18:19:02 Outpatient [facility] [id number] Willis Gil 2023-01-16 00:00:00 2023-01-16 00:00:00 Transition of Care Marlys Odell 1.2840.114 350.1.13.10 4.2.7.2.686 [id number] [facility] 2023-01-11 21:06:00 2023-01-15 16:00:00 Inpatient X REINALDO STEELESHUA [facility] DAV[facility] [id number] [facility] 2023-01-11 21:06:00 2023-01-15 16:00:00 Hospital Encounter Miguel Ángel Siddiqui, Mirella Steele, Kun [facility] 1.2840.114 350.1.13.10 4.2.7.2.686 [id number] [facility] 2023-01-12 00:00:00 2023-01-12 00:00:00 Travel 1.2.840.1 70054.1.1 3.104.2.7 .3.359870 .8 1.2.840.114 350.1.13.10 4.2.7.3.698 084.8 [id number] [facility] 2023-01-11 00:00:00 2023-01-11 00:00:00 Travel 1.2.840.1 14200.1.1 3.104.2.7 .3.954003 .8 1.2.840.114 350.1.13.10 4.2.7.3.698 084.8 [id number] [facility] 2022-12-14 18:37:13 2022-12-14 18:37:13 Outpatient [facility] [id number] Willis Gil 2022-12-12 09:30:00 2022-12-12 09:30:00 Outpatient PRASANNA LOOMIS [facility] [id number] [facility] 2022-11-21 13:08:00 2022-11-21 16:45:00 Emergency MANJU BARRAGAN [facility] E[facility] [id number] [facility] 2022-11-21 13:08:00 2022-11-21 16:45:00 Emergency Oc Bridges Christopher 1.2.840.1 06135.1.1 3.104.2.7 .3.373588 .8 [id number] [facility] 2022-11-21 00:00:00 2022-11-21 00:00:00 Travel 1.2.840.1 60812.1.1 3.104.2.7 .3.476920 .8 1.2.840.114 350.1.13.10 4.2.7.3.698 [id number] [facility] 2022-11-18 10:08:00 2022-11-18 10:08:00 Outpatient [facility] [id number] Willis Gil 2022-11-15 09:40:00 2022-11-15 09:40:00 Outpatient JEREMY LABOY CHRISTINE [facility] [id number] [facility] 2022-11-09 15:26:18 2022-11-09 15:26:18 Outpatient [facility] [id number] Willis Gil 2022-11-06 13:00:00 2022-11-06 13:00:00 Outpatient R CA MARTINEZ [facility] [id number] [facility] 2022-10-29 00:00:00 2022-10-29 00:00:00 Patient Secure Msg Jeremy Greene 1.2.840.1 28986.1.1 3.104.2.7 .3.989434 .8 [id number] [facility] 2022-10-29 00:00:00 2022-10-29 00:00:00 Patient Secure Msg Prasanna Vargas Jm 1.2.840.1 99116.1.1 3.104.2.7 .3.697078 .8 [id number] [facility] 2022-10-03 00:00:00 2022-10-03 00:00:00 Letter (Out) Roldan Walker [facility] 1.2.840.114 350.1.13.10 4.2.7.2.686 [id number] [facility] 2022-10-02 10:00:00 2022-10-02 10:00:00 Outpatient DESIREE SALMON [facility] [id number] [facility] 2022-10-01 09:40:00 2022-10-01 09:40:00 Outpatient REJI COOPER [facility] [id number] [facility] 2022-09-25 00:00:00 2022-09-25 00:00:00 Telephone [facility] 1.2.840.114 350.1.13.10 4.2.7.2.686 [id number] [facility] 2022-09-21 09:30:00 2022-09-21 09:30:00 Outpatient KASSANDRA MCKINLEY [facility] [id number] [facility] 2022-09-21 00:00:00 2022-09-21 00:00:00 Letter (Out[facility] 1.2.840.114 350.1.13.10 4.2.7.2.686 [id number] [facility] 2022-09-21 00:00:00 2022-09-21 00:00:00 [facility] 1.2.840.114 350.1.13.10 4.2.7.2.686 [id number] [facility] 2022-09-21 00:00:00 2022-09-21 00:00:00 Telephone [facility] 1.2.840.114 350.1.13.10 4.2.7.2.686 [id number] [facility] 2022-09-14 09:30:00 2022-09-14 09:30:00 Outpatient KASSANDRA MCKINLEY [facility] [id number] [facility] 2022-09-12 00:00:00 2022-09-12 00:00:00 Telephone Lexy [facility] TALYA?[facility]O [facility] MED[facility] 1.2.840.114 350.1.13.10 4.2.7.2.686 [id number] [facility] 2022-09-07 11:30:00 2022-09-07 11:30:00 Outpatient KASSANDRA MCKINLEY [facility] [id number] [facility] 2022-09-05 08:44:00 2022-09-05 13:15:00 Emergency X KENNEDY HUTCHINS [facility] E[facility] [id number] [facility] 2022-09-05 08:44:00 2022-09-05 13:15:00 Emergency Kennedy Hutchins [facility] 1.2840.114 350.1.13.10 4.2.7.2.686 [id number] [facility] 2022-09-04 00:00:00 2022-09-04 00:00:00 Telephone Kassandra Pugh [facility] 1.84.114 350.1.13.10 4.2.7.2.686 [id number] [facility] 2022-09-04 00:00:00 2022-09-04 00:00:00 Patient Secure Msg Rad Serra [facility] 1.84.114 350.1.13.10 4.2.7.2.686 [id number] [facility] 2022-08-29 09:00:00 2022-08-29 09:00:00 Outpatient R DESIREE FINNEY [facility] [id number] [facility] 2022-08-14 00:00:00 2022-08-14 00:00:00 Patient Secure Msg Doctor Unassigned, [place] [facility] 1.840.114 350.1.13.10 4.2.7.2.686 [id number] [facility] 2022-07-31 17:56:00 2022-07-31 20:30:00 Emergency X BLANE, MANJU [facility] [id number] [facility] 2022-07-31 17:56:00 2022-07-31 20:30:00 Emergency Addison, Leightoner [facility] 1.84.114 350.1.13.10 4.2.7.2.686 [id number] [facility] 2022-07-15 09:46:45 2022-07-15 23:59:00 Outpatient R BEBA KAUR [facility] [id number] [facility] 2022-07-15 09:46:45 2022-07-15 23:59:00 Hospital Encounter Beba Kaur [facility] 1.840.114 350.1.13.10 4.2.7.2.686 [id number] [facility] 2022-07-15 09:46:45 2022-07-15 23:59:00 Hospital Encounter Beba Kaur [facility] 1.840.114 350.1.13.10 4.2.7.2.686 [id number] [facility] 2022-07-15 09:20:00 2022-07-15 10:29:17 Urgent Care Beba Kaur Unknown, Attending [facility] MED[facility] OFF[facility] BU[facility] 1.840.114 350.1.13.10 4.2.7.2.686 [id number] [facility] 2022-07-15 00:00:00 2022-07-15 00:00:00 Orders Only Doctor Unassigned, [place] [facility] 1.84114 350.1.13.10 4.2.7.2.686 [id number] [facility] 2022-06-23 09:20:00 2022-06-23 10:27:39 Outpatient R PAUL SAMAYOA [facility] [id number] [facility] 2022-06-23 09:20:00 2022-06-23 10:27:39 Urgent Care Paul Samayoa Unknown, Attending [facility] 1.840.114 350.1.13.10 4.2.7.2.686 [id number] [facility] 2022-06-23 00:00:00 2022-06-23 00:00:00 Orders Only Doctor Unassigned, [place] [facility] 1..840.114 350.1.13.10 4.2.7.2.686 [id number] [facility] 2022-06-15 09:40:00 2022-06-15 09:40:00 Outpatient JEREMY LABOY [facility] [id number] [facility] 2022-05-29 08:00:00 2022-05-29 08:00:00 Outpatient KASSANDRA MCKINLEY [facility] [id number] [facility] 2022-05-15 09:20:00 2022-05-15 09:20:00 Outpatient BENNETT MOORE [facility] [id number] [facility] 2022-05-11 09:30:00 2022-05-11 09:30:00 Outpatient KASSANDRA MCKINLEY [facility] [id number] [facility] 2022-05-05 12:26:00 2022-05-05 16:11:00 Emergency X KARON NORTON [facility] [id number] [facility] 2022-05-05 12:26:00 2022-05-05 16:11:00 Emergency Karon Norton [facility] 1.840.114 350.1.13.10 4.2.7.2.686 [id number] [facility] 2022-05-01 00:00:00 2022-05-01 00:00:00 Outpatient PRASANNA LOOMIS VIEN [facility] [id number] [facility] 2022-04-26 08:30:00 2022-04-26 09:59:00 Emergency X OC BRIDGES [facility] [id number] [facility] 2022-04-26 08:30:00 2022-04-26 09:59:00 Emergency Oc Bridges [facility] 1.2840.114 350.1.13.10 4.2.7.2.686 [id number] [facility] 2022-04-25 18:23:00 2022-04-25 21:55:00 Emergency X KENNEDY HUTCHINS [facility] [id number] [facility] 2022-04-25 18:23:00 2022-04-25 21:55:00 Emergency Kennedy Hutchins [facility] 1.2840.114 350.1.13.10 4.2.7.2.686 [id number] [facility] 2022-04-19 10:00:00 2022-04-19 10:00:00 Outpatient JEREMY LABOY [facility] [id number] [facility] 2022-04-12 00:00:00 2022-04-12 00:00:00 [facility] 1.284.114 350.1.13.10 4.2.7.2.686 [id number] [facility] 2022-04-11 00:00:00 2022-04-11 00:00:00 Telephone Darrion Armstrong [facility] 1.2.84.114 350.1.13.10 4.2.7.2.686 [id number] [facility] 2022-04-10 00:00:00 2022-04-10 00:00:00 Telephone Lexy Kassandra [facility] 1.2840.114 350.1.13.10 4.2.7.2.686 [id number] [facility] 2022-04-09 09:30:00 2022-04-09 09:30:00 Office Visit Kassandra Pugh [facility] 1.2.840.114 350.1.13.10 4.2.7.2.686 [id number] [facility] 2022-04-09 09:30:00 2022-04-09 09:21:44 Outpatient R LEXY KASSANDRA [facility] [id number] [facility] 2022-04-07 13:41:00 2022-04-07 17:49:00 Emergency X ALEXISJADENOLAMIDE [facility] ERT [id number] [facility] 2022-04-07 13:41:00 2022-04-07 17:49:00 Emergency Alexisjaden Olamide [facility] 1..840.114 350.1.13.10 4.2.7.2.686 [id number] [facility] 2022-04-07 00:00:00 2022-04-07 00:00:00 Patient Secure Msg Doctor Unassigned, [place] [facility] 1.2.840.114 350.1.13.10 4.2.7.2.686 [id number] [facility] 2022-04-04 00:00:00 2022-04-04 00:00:00 [facility] 1.2.840.114 350.1.13.10 4.2.7.2.686 [id number] [facility] 2022-04-02 10:30:00 2022-04-02 10:30:00 Outpatient R LONNY PUGHSSICA [facility] [id number] [facility] 2022-03-28 00:00:00 2022-03-28 00:00:00 Patient Secure Msg Doctor Unassigned, [place] [facility] 1.2.840.114 350.1.13.10 4.2.7.2.686 [id number] [facility] 2022-03-24 07:35:00 2022-03-24 13:11:00 Emergency X KELLIE PIPER [facility] ERT [id number] [facility] 2022-03-24 07:35:00 2022-03-24 13:11:00 Emergency Perla, Kellie E [facility] 1..840.114 350.1.13.10 4.2.7.2.686 [id number] [facility] 2022-03-23 10:30:00 2022-03-23 10:30:00 Outpatient KASSANDRA MCKINLEY [facility] [id number] [facility] 2022-03-23 00:00:00 2022-03-23 00:00:00 [facility] 1..840.114 350.1.13.10 4.2.7.2.686 [id number] [facility] 2022-03-22 00:00:00 2022-03-22 00:00:00 Telephone Darrion Armstrong [facility] 1..840.114 350.1.13.10 4.2.7.2.686 [id number] [facility] 2022-03-22 00:00:00 2022-03-22 00:00:00 Refill Darrion Armstrong [facility] MED[facility] OFF[facility] BUILD[facility] 1.2.840.114 350.1.13.10 4.2.7.2.686 [id number] [facility] 2022-03-21 00:00:00 2022-03-21 00:00:00 Telephone Darrion Armstrong [facility] 1..840.114 350.1.13.10 4.2.7.2.686 [id number] [facility] 2022-03-15 14:00:00 2022-03-15 14:36:19 Outpatient R RADHA [facility] [id number] [facility] 2022-03-15 14:00:00 2022-03-15 14:36:19 Office Visit Radha [facility] PROFESSIO NAL BUILDING 1..840.114 350.1.13.10 4.2.7.2.686 [id number] [facility] 2022-03-15 08:40:00 2022-03-15 10:47:00 Emergency X LYDIA COLMENARES [facility] [id number] [facility] 2022-03-15 08:40:00 2022-03-15 10:47:[address] [facility] 1..840.114 350.1.13.10 4.2.7.2.686 [id number] [facility] 2022-03-14 10:30:00 2022-03-14 10:30:00 Outpatient PRASANNA LOOMIS [facility] [id number] [facility] 2022-03-11 09:22:00 2022-03-11 12:15:00 Emergency X ANGELICA VIVEROS [facility] ERT [id number] [facility] 2022-03-11 09:22:00 2022-03-11 12:15:00 Emergency Angelica Viveros [facility] 1.2.840.114 350.1.13.10 4.2.7.2.686 [id number] [facility] 2022-03-06 08:30:00 2022-03-06 08:30:00 Outpatient R PUGHKASSANDRA [facility] [id number] [facility] 2022-03-02 00:00:00 2022-03-02 00:00:00 Telephone Darrion Armstrong [facility] 1.2.840.114 350.1.13.10 4.2.7.2.686 [id number] [facility] 2022-02-28 00:00:00 2022-02-28 00:00:00 Patient Secure Msg Doctor Unassigned, [place] [facility] 1.2.840.114 350.1.13.10 4.2.7.2.686 [id number] [facility] 2022-02-27 09:30:00 2022-02-27 09:49:42 Outpatient Farzana PUGHKASSANDRA [facility] [id number] [facility] 2022-02-27 09:30:00 2022-02-27 09:49:42 [facility] MEDICAL OFFICE BUILDING 1.2.840.114 350.1.13.10 4.2.7.2.686 [id number] [facility] 2022-02-27 08:00:00 2022-02-27 09:12:17 Office Visit Ca Martinez [facility] MEDICAL OFFICE BUILDING 1.2.840.114 350.1.13.10 4.2.7.2.686 [id number] [facility] 2022-02-26 11:30:00 2022-02-26 11:30:00 Outpatient Farzana PUGHKASSANDRA [facility] [id number] [facility] 2022-02-21 01:20:00 2022-02-21 03:44:00 Emergency X MAGGIE HAMILTON [facility] ERT [id number] [facility] 2022-02-21 01:20:00 2022-02-21 03:44:00 Emergency Maggie Hamilton [facility] 1.2.840.114 350.1.13.10 4.2.7.2.686 [id number] [facility] 2022-02-19 00:00:00 2022-02-19 00:00:00 Patient Secure Msg Kendal Zamudio [facility] MEDICAL OFFICE BUILDING 1.2.840.114 350.1.13.10 4.2.7.2.686 [id number] [facility] 2022-02-19 00:00:00 2022-02-19 00:00:00 Patient Secure Msg Kendal Zamudio [facility] MEDICAL OFFICE BUILDING 1.2.840.114 350.1.13.10 4.2.7.2.686 [id number] [facility] 2022-02-19 00:00:00 2022-02-19 00:00:00 Patient Secure Msg Santiago Valencia [facility] 1.2.840.114 350.1.13.10 4.2.7.2.686 [id number] [facility] 2022-02-19 00:00:00 2022-02-19 00:00:00 Patient Secure Msg Ross Salazar [facility] AUDIO VIDEO TECH [facility] 1.2.840.114 350.1.13.10 4.2.7.2.686 [id number] [facility] 2022 11:58:00 2022 15:13:00 Emergency MAGGIE MONTANEZ [facility] ERT [id number] [facility] 2022 11:58:00 2022 15:13:00 Emergency Maggie Hamilton [facility] 1..840.114 350.1.13.10 4.2.7.2.686 [id number] [facility] 2022-02-09 09:00:00 2022-02-09 09:00:00 Outpatient R CRICKET TAYLOR [facility] [id number] [facility] 2022-02-06 10:00:00 2022-02-06 10:00:00 Outpatient AC ARAUZ [facility] [id number] [facility] 2022-02-05 09:45:00 2022-02-05 10:05:00 Nurse Visit Nurse, Filippo [facility] Willie Medrano [facility] 1..840.114 350.1.13.10 4.2.7.2.686 [id number] [facility] 2022-02-05 09:20:00 2022-02-05 09:20:00 Outpatient R OLIVER FLACO [facility] [id number] [facility] 2022-01-26 00:00:00 2022-01-26 00:00:00 Case Management Prasanna Vargas [facility] PROFESSIO NAL BUILDING 1..840.114 350.1.13.10 4.2.7.2.686 [id number] [facility] 2022-01-22 11:00:00 2022-01-22 11:00:00 Outpatient CA ARAUZ [facility] [id number] [facility] 2022-01-19 00:00:00 2022-01-19 00:00:00 Patient Secure Msg Doctor Unassigned, [place] [facility] 1.840.114 350.1.13.10 4.2.7.2.686 [id number] [facility] 2022-01-18 05:17:00 2022-01-18 10:25:00 Emergency X VASUT, ROSENDO [facility] ERT [id number] [facility] 2022-01-18 05:17:00 2022-01-18 10:25:00 Emergency Juan Kennedy [facility] 1.840.114 350.1.13.10 4.2.7.2.686 [id number] [facility] 2022-01-15 08:34:00 2022-01-15 10:49:00 Emergency Aj COXMAURA [facility] ERT [id number] [facility] 2022-01-15 08:34:00 2022-01-15 10:49:00 Emergency Larry Perez Robert Lee [facility] 1.840.114 350.1.13.10 4.2.7.2.686 [id number] [facility] 2022-01-08 18:04:00 2022-01-08 20:09:00 Emergency X HUMBERTO OCHOA [facility] ERT [id number] [facility] 2022-01-08 18:04:00 2022-01-08 20:09:00 Emergency Humberto Ochoa [facility] 1..840.114 350.1.13.10 4.2.7.2.686 [id number] [facility] 2021-12-12 13:30:00 2021-12-12 13:40:21 Outpatient Farzana CARNES TETO [facility] [id number] [facility] 2021-12-12 13:30:00 2021-12-12 13:40:21 Office Visit Prasanna Vargas [facility] 1.840.114 350.1.13.10 4.2.7.2.686 [id number] [facility] 2021-12-12 13:30:00 2021-12-12 13:40:21 Outpatient R TETO CARNES [facility] [id number] [facility] 2021-12-12 13:30:00 2021-12-12 13:40:21 Outpatient R TETO CARNES [facility] [id number] [facility] 2021-12-11 16:15:00 2021-12-11 16:15:00 Outpatient R SUZETTESANTIAGO [facility] [id number] [facility] 2021-12-05 14:15:00 2021-12-05 14:15:00 Outpatient R ROMULO OMALLEY [facility] [id number] [facility] 2021-11-28 08:49:00 2021-11-28 11:02:00 Emergency X KARON NORTON [facility] ERT [id number] [facility] 2021-11-28 08:49:00 2021-11-28 11:02:00 Emergency Karon Norton [facility] 1.840.114 350.1.13.10 4.2.7.2.686 [id number] [facility] 2021-11-28 00:00:00 2021-11-28 00:00:00 Patient Secure Msg Cricket Taylor [facility] AUDIO VIDEO TECH [facility] 1.2.840.114 350.1.13.10 4.2.7.2.686 [id number] [facility] 2021-11-24 18:14:00 2021-11-24 21:04:00 Emergency X Kaycee MÉNDEZ [facility] ERT [id number] [facility] 2021-11-24 18:14:00 2021-11-24 21:04:00 Emergency Kaycee Méndez [facility] 1..840.114 350.1.13.10 4.2.7.2.686 [id number] [facility] 2021-11-24 00:00:00 2021-11-24 00:00:00 Telephone Cricket Taylor [facility] AUDIO VIDEO TECH [facility] 1.2114 350.1.13.10 4.2.7.2.686 [id number] [facility] 2021-11-20 00:00:00 2021-11-20 00:00:00 Patient Secure Kendal Medrano [facility] MEDICAL OFFICE BUILDING 1.84.114 350.1.13.10 4.2.7.2.686 [id number] [facility] 2021-11-19 00:00:00 2021-11-19 00:00:00 Letter (Out) Leslie Santacruz [facility] 1..114 350.1.13.10 4.2.7.2.686 [id number] [facility] 2021-11-18 10:41:40 2021-11-18 23:59:00 Outpatient R OLIVERJAMESFLACO [facility] [id number] [facility] 2021-11-18 10:41:40 2021-11-18 23:59:00 Hospital Encounter Oliver, [facility] MEDICAL OFFICE BUILDING 1.84.114 350.1.13.10 4.2.7.2.686 [id number] [facility] 2021-11-18 10:20:00 2021-11-18 10:53:20 Urgent Care Oliver, [facility] MEDICAL OFFICE BUILDING 1.284114 350.1.13.10 4.2.7.2.686 [id number] [facility] 2021-11-09 10:30:00 2021-11-09 10:30:00 Outpatient R DESIREE MOHR [facility] [id number] [facility] 2021-10-25 13:20:00 2021-10-25 13:20:00 Urgent Care Willie Medrano OliverFlaco [facility] MEDICAL OFFICE BUILDING 1.2.840.114 350.1.13.10 4.2.7.2.686 [id number] [facility] 2021-10-25 13:20:00 2021-10-25 12:47:59 Outpatient R WILLIE MEDRANO [facility] [id number] [facility] 2021-10-25 00:00:00 2021-10-25 00:00:00 Patient Secure MsCa [place] [facility] MEDICAL OFFICE BUILDING 1.2840.114 350.1.13.10 4.2.7.2.686 [id number] [facility] 2021-10-25 00:00:00 2021-10-25 00:00:00 Telephone Ca Martinez [facility] MEDICAL OFFICE BUILDING 1.2840.114 350.1.13.10 4.2.7.2.686 [id number] [facility] 2021-10-25 00:00:00 2021-10-25 00:00:00 Telephone Provider, Filippo Shirley [facility] MEDICAL OFF[facility] BUILDING 1.2840.114 350.1.13.10 4.2.7.2.686 [id number] [facility] 2021-10-25 00:00:00 2021-10-25 00:00:00 Telephone Nurse, Filippo [facility] MEDICAL OFFICE BUILDING 1.2.840.114 350.1.13.10 4.2.7.2.686 [id number] [facility] 2021-10-24 10:15:00 2021-10-24 10:15:00 Outpatient ROMULO BROWNING [facility] [id number] [facility] 2021-10-24 10:15:00 2021-10-24 10:15:00 Outpatient ROMULO BROWNING [facility] [id number] [facility] 2021-10-11 09:30:00 2021-10-11 09:30:00 Outpatient ROMULO BROWNING [facility] [id number] [facility] 2021-10-10 13:30:00 2021-10-10 13:30:00 Outpatient PRASANNA LOOMIS [facility] [id number] [facility] 2021-10-10 13:30:00 2021-10-10 13:30:00 Outpatient PRASANNA LOOMIS [facility] [id number] [facility] 2021-10-10 13:30:00 2021-10-10 13:30:00 Outpatient PRASANNA LOOMIS [facility] [id number] [facility] 2021-10-10 13:30:00 2021-10-10 13:30:00 Outpatient PRASANNA LOOMIS [facility] [id number] [facility] 2021-10-10 13:30:00 2021-10-10 13:30:00 Outpatient PRASANNA LOOMIS [facility] [id number] [facility] 2021-10-10 13:30:00 2021-10-10 13:30:00 Outpatient R PRASANNA VARGAS [facility] [id number] [facility] 2021-10-10 13:30:00 2021-10-10 13:30:00 Outpatient PRASANNA LOOMIS [facility] [id number] [facility] 2021-10-05 00:00:00 2021-10-05 00:00:00 Patient Secure Kendal Medrano [facility] MEDICAL OFFICE BUILDING 1.2.840.114 350.1.13.10 4.2.7.2.686 [id number] [facility] 2021-10-05 00:00:00 2021-10-05 00:00:00 Patient Secure Msg Kendal Zamudio [facility]ILD[facility] 1.2840.114 350.1.13.10 4.2.7.2.686 [id number] [facility] 2021-10-04 00:00:00 2021-10-04 00:00:00 Pre Visit Outreach Michael Melia [facility] 1.2840.114 350.1.13.10 4.2.7.2.686 [id number] [facility] 2021-09-28 13:30:00 2021-09-28 13:45:00 Office Visit Desiree Mohr [facility] 1.20.114 350.1.13.10 4.2.7.2.686 [id number] [facility] 2021-09-28 13:30:00 2021-09-28 13:30:00 Outpatient DESIREE STONE [facility] [id number] [facility] 2021-09-28 13:30:00 2021-09-28 13:30:00 Outpatient DESIREE STONE [facility] [id number] [facility] 2021-09-28 00:00:00 2021-09-28 00:00:00 Patient Secure g Onur Desiree Kassandra [facility] 1.2840.114 350.1.13.10 4.2.7.2.686 [id number] [facility] 2021-09-27 14:00:00 2021-09-27 14:00:00 Outpatient TETO BRANTLEY [facility] [id number] [facility] 2021-09-27 09:30:00 2021-09-27 09:30:00 Outpatient R DANIA PENNINGTON [facility] [id number] [facility] 2021-09-27 09:30:00 2021-09-27 09:30:00 Outpatient R DANIA PENNINGTON [facility] [id number] [facility] 2021-09-27 09:30:00 2021-09-27 09:30:00 Outpatient R DANIA PENNINGTON [facility] [id number] [facility] 2021-09-26 10:45:00 2021-09-26 10:45:00 Outpatient R CRICKET TAYLOR [facility] [id number] [facility] 2021-09-26 10:45:00 2021-09-26 10:45:00 Outpatient R CRICKET TAYLOR [facility] [id number] [facility] 2021-09-26 00:00:00 2021-09-26 00:00:00 Patient Secure g Ca Martinez [facility] MED[facility] OFF[facility] BUILD[facility] 1.2.840.114 350.1.13.10 4.2.7.2.686 [id number] [facility] 2021-09-26 00:00:00 2021-09-26 00:00:00 Patient Secure g Ca Martinez [facility] MEDICAL OFFICE BUILDING 1.2.840.114 350.1.13.10 4.2.7.2.686 [id number] [facility] 2021-09-25 10:20:00 2021-09-25 11:10:42 Urgent Care Flaco Boyd Amanda [facility] MEDICAL OFFICE BUILDING 1.2.840.114 350.1.13.10 4.2.7.2.686 [id number] [facility] 2021-09-25 10:20:00 2021-09-25 11:10:42 Outpatient R JAMES BOYDTANY [facility] [id number] [facility] 2021-09-25 10:20:00 2021-09-25 10:20:00 Outpatient R JAMES BOYDTANY [facility] [id number] [facility] 2021-09-25 10:00:00 2021-09-25 10:00:00 Outpatient R PRASANNA VARGAS [facility] [id number] [facility] 2021-09-25 00:00:00 2021-09-25 00:00:00 Telephone Oliver [facility] MED[facility] OFF[facility] BUILD[facility] 1.840.114 350.1.13.10 4.2.7.2.686 [id number] [facility] 2021-09-25 00:00:00 2021-09-25 00:00:00 Patient Secure M[facility] 1.84.114 350.1.13.10 4.2.7.2.686 [id number] [facility] 2021-09-25 00:00:00 2021-09-25 00:00:00 Telephone Cricket Taylor [facility] AUDIO VIDEO TECH [facility] 1..114 350.1.13.10 4.2.7.2.686 [id number] [facility] 2021-09-25 00:00:00 2021-09-25 00:00:00 Telephone Desiree Mohr [facility] 1.84.114 350.1.13.10 4.2.7.2.686 [id number] [facility] 2021-09-15 00:00:00 2021-09-15 00:00:00 Patient Secure Msg Kendal Zamudio [facility] OFF[facility] BUILD[facility] 1.840.114 350.1.13.10 4.2.7.2.686 [id number] [facility] 2021-09-15 00:00:00 2021-09-15 00:00:00 Patient Secure Msg Kendal Zamudio [facility] 1.2.840.114 350.1.13.10 4.2.7.2.686 [id number] [facility] 2021-09-15 00:00:00 2021-09-15 00:00:00 Patient Secure Msg Kendal Zamudio [facility] 1.2.840.114 350.1.13.10 4.2.7.2.686 [id number] [facility] 2021-09-14 00:00:00 2021-09-14 00:00:00 Patient Secure Msg VíctorCa cannon [facility] 1.2.840.114 350.1.13.10 4.2.7.2.686 [id number] [facility] 2021-09-14 00:00:00 2021-09-14 00:00:00 Patient Secure Msg Doctor Unassigned, [place] [facility] MEDICAL OFFICE BUILDING 1.2.840.114 350.1.13.10 4.2.7.2.686 [id number] [facility] 2021-09-12 10:30:00 2021-09-12 10:30:00 Outpatient DESIREE STONE [facility] [id number] [facility] 2021-09-12 10:30:00 2021-09-12 10:30:00 Outpatient DESIREE STONE [facility] [id number] [facility] 2021-09-12 00:00:00 2021-09-12 00:00:00 Patient Secure Msg Meet Taj Buddy [facility] 1.2840.114 350.1.13.10 4.2.7.2.686 [id number] [facility] 2021-09-12 00:00:00 2021-09-12 00:00:00 Orders Only Doctor Unassigned, [place] [facility] 1.2.840.114 350.1.13.10 4.2.7.2.686 [id number] [facility] 2021-09-12 00:00:00 2021-09-12 00:00:00 Patient Secure Msg Juan [facility] MED[facility] OFF[facility] BUILD[facility] 1.2840.114 350.1.13.10 4.2.7.2.686 [id number] [facility] 2021-09-05 00:00:00 2021-09-05 00:00:00 Patient Secure Msg Juan [facility] MEDICAL OFFICE BUILDING 1.2840.114 350.1.13.10 4.2.7.2.686 [id number] [facility] 2021-09-05 00:00:00 2021-09-05 00:00:00 Patient Secure Msg Doctor Unassigned, [place] [facility] 1.2840.114 350.1.13.10 4.2.7.2.686 [id number] [facility] 2021-09-05 00:00:00 2021-09-05 00:00:00 Patient Secure Msg Doctor Unassigned, [place] [facility] 1.2840.114 350.1.13.10 4.2.7.2.686 [id number] [facility] 2021-09-04 00:00:00 2021-09-04 00:00:00 Patient Secure Msg Ca Martinez [facility] MEDICAL OFFICE BUILDING 1.2840.114 350.1.13.10 4.2.7.2.686 [id number] [facility] 2021-08-28 00:00:00 2021-08-28 00:00:00 Patient Secure Msg Harsh Charles [facility] 1.2840.114 350.1.13.10 4.2.7.2.686 [id number] [facility] 2021-08-25 00:00:00 2021-08-25 00:00:00 Telephone Dania Pennington [facility] MEDICAL OFFICE BUILDING 1.2840.114 350.1.13.10 4.2.7.2.686 [id number] [facility] 2021-08-25 00:00:00 2021-08-25 00:00:00 Patient Secure Msg Ca Martinez [facility] MEDICAL OFFICE BUILDING 1.2840.114 350.1.13.10 4.2.7.2.686 [id number] [facility] 2021-08-24 00:00:00 2021-08-24 00:00:00 Telephone Ca Martinez [facility] MEDICAL OFFICE BUILDING 1.2840.114 350.1.13.10 4.2.7.2.686 [id number] [facility] 2021-08-24 00:00:00 2021-08-24 00:00:00 Patient Secure Msg Ca Martinez [facility] 1.2840.114 350.1.13.10 4.2.7.2.686 [id number] [facility] 2021-08-23 00:00:00 2021-08-23 00:00:00 Patient Secure Msg Ca Martinez [facility] 1.2.840.114 350.1.13.10 4.2.7.2.686 [id number] [facility] 2021-08-23 00:00:00 2021-08-23 00:00:00 Telephone Ca Martinez [facility] 1.2.840.114 350.1.13.10 4.2.7.2.686 [id number] [facility] 2021-08-22 00:00:00 2021-08-22 00:00:00 Telephone Ca Martinez [facility] 1.2.840.114 350.1.13.10 4.2.7.2.686 [id number] [facility] 2021-08-22 00:00:00 2021-08-22 00:00:00 Patient Secure Msg Hallie Wilkinson [facility] 1.2.840.114 350.1.13.10 4.2.7.2.686 [id number] [facility] 2021-08-18 00:00:00 2021-08-18 00:00:00 Telephone Ca Martinez [facility] 1.2.840.114 350.1.13.10 4.2.7.2.686 [id number] [facility] 2021-08-17 09:00:00 2021-08-17 09:00:00 Outpatient DESIREE STONE [facility] [id number] [facility] 2021-08-17 09:00:00 2021-08-17 09:00:00 Outpatient DESIREE STONE [facility] [id number] [facility] 2021-08-17 00:00:00 2021-08-17 00:00:00 Patient Secure Msg Prasanna Vargas [facility] 1.20.114 350.1.13.10 4.2.7.2.686 [id number] [facility] 2021-08-17 00:00:00 2021-08-17 00:00:00 Patient Secure Msg Ca Martinez [facility] 1.2.114 350.1.13.10 4.2.7.2.686 [id number] [facility] 2021-08-17 00:00:00 2021-08-17 00:00:00 Patient Secure Msg Ca Martinez [facility] 1..114 350.1.13.10 4.2.7.2.686 [id number] [id number] [facility] 2021-08-16 00:00:00 2021-08-16 00:00:00 Patient Secure Msg Ca Martinez [facility] 1.2114 350.1.13.10 4.2.7.2.686 [id number] [facility] 2021-08-16 00:00:00 2021-08-16 00:00:00 Patient Secure Msg Doctor Unassigned, [place] [facility] 1.2114 350.1.13.10 4.2.7.2.686 [id number] [facility] 2021-08-16 00:00:00 2021-08-16 00:00:00 Patient Secure Msg Ca Martinez [facility] 1.2114 350.1.13.10 4.2.7.2.686 [id number] [facility] 2021-08-16 00:00:00 2021-08-16 00:00:00 Patient Secure Ca Caraballo [facility] [facility] 1.2.840.114 350.1.13.10 4.2.7.2.686 [id number] [facility] 2021-08-15 15:30:00 2021-08-15 16:16:42 Office Visit Adán Kim Robert [facility] 1..840.114 350.1.13.10 4.2.7.2.686 [id number] [facility] 2021-08-15 15:30:00 2021-08-15 16:16:42 Outpatient Farzana KIM ADÁN [facility] [id number] [facility] 2021-08-15 15:30:00 2021-08-15 15:30:00 Outpatient Farzana KIM ADÁN [facility] [id number] [facility] 2021-08-15 15:30:00 2021-08-15 15:30:00 [facility] [id number] [facility] 2021-08-15 15:30:00 2021-08-15 15:30:00 Outpatient ADÁN DIEGO [facility] [id number] [facility] 2021-08-15 09:27:00 2021-08-15 12:26:00 Emergency X MAURA [facility] [id number] [facility] 2021-08-15 09:27:00 2021-08-15 12:26:00 Emergency Maura [facility] 1..840.114 350.1.13.10 4.2.7.2.686 [id number] [facility] 2021-08-15 09:27:00 2021-08-15 12:26:00 Emergency X MAURA [facility] E[facility] [id number] [facility] 2021-08-15 00:00:00 2021-08-15 00:00:00 Patient Secure Msg Doctor Unassigned, [place] [facility] 1.114 350.1.13.10 4.2.7.2.686 [id number] [facility] 2021-08-14 13:25:00 2021-08-14 23:59:00 Outpatient CA ARAUZ [facility] [id number] [facility] 2021-08-14 13:25:00 2021-08-14 23:59:00 Outpatient R CA MARTINEZ [facility] [id number] [facility] 2021-08-14 13:25:00 2021-08-14 13:25:00 Outpatient R CA MARTINEZ [facility] [id number] [facility] 2021-08-14 12:19:07 2021-08-14 13:24:00 Outpatient R CA MARTINEZ [facility] [id number] [facility] 2021-08-14 12:19:07 2021-08-14 13:24:00 Outpatient CA ARAUZ [facility] [id number] [facility] 2021-08-14 12:30:00 2021-08-14 13:01:24 Mottler Operator Visit Lab, Filippo Martinez [facility] MED[facility] OFF[facility] BUILD[facility] 1..114 350.1.13.10 4.2.7.2.686 [id number] [facility] 2021-08-14 12:30:00 2021-08-14 12:45:00 Mottler Operator Visit Lab, Filippo Martinez [facility] 1.114 350.1.13.10 4.2.7.2.686 [id number] [facility] 2021-08-14 11:30:00 2021-08-14 12:31:12 Office Visit Ca Martinez [facility] 1.2.840.114 350.1.13.10 4.2.7.2.686 [id number] [facility] 2021-08-14 11:30:00 2021-08-14 12:31:12 Outpatient R JUAN CA [facility] [id number] [facility] 2021-08-14 00:00:00 2021-08-14 00:00:00 Patient Secure Msg Ca Martinez [facility] 1.2.840.114 350.1.13.10 4.2.7.2.686 [id number] [facility] 2021-08-14 00:00:00 2021-08-14 00:00:00 Patient Secure Msg Juan Ca [facility] 1.2.840.114 350.1.13.10 4.2.7.2.686 [id number] [facility] 2021-08-09 14:45:00 2021-08-09 14:45:00 Outpatient R ADÁN KIM [facility] [id number] [facility] 2021-08-09 00:00:00 2021-08-09 00:00:00 Telephone Ca Martinez [facility] 1..840.114 350.1.13.10 4.2.7.2.686 [id number] [facility] 2021-08-08 11:30:00 2021-08-08 23:59:00 Outpatient R JAUN CA [facility] [id number] [facility] 2021-08-08 11:30:00 2021-08-08 23:59:00 Hospital Encounter Ca Martinez [facility] LULU BABIN?[facility] BU[facility] 1.840.114 350.1.13.10 4.2.7.2.686 [id number] [facility] 2021-08-08 11:15:00 2021-08-08 11:15:00 Outpatient R CA MARTINEZ [facility] [id number] [facility] 2021-08-08 11:00:00 2021-08-08 11:00:00 Outpatient R CA MARTINEZ [facility] [id number] [facility] 2021-08-08 00:00:00 2021-08-08 00:00:00 Patient Secure Msg Doctor Unassigned, [place] [facility] 1.840.114 350.1.13.10 4.2.7.2.686 [id number] [facility] 2021-08-07 09:30:00 2021-08-07 10:23:21 Office Visit Ca Martinez [facility] 1..840.114 350.1.13.10 4.2.7.2.686 [id number] [facility] 2021-08-07 09:30:00 2021-08-07 10:23:21 Outpatient R CA MARTINEZ [facility] [id number] [facility] 2021-08-07 09:30:00 2021-08-07 09:30:00 Outpatient R CA MARTINEZ [facility] [id number] [facility] 2021-08-07 00:00:00 2021-08-07 00:00:00 Patient Secure Msg Ca Martinez [facility] 1..840.114 350.1.13.10 4.2.7.2.686 [id number] [facility] 2021-08-07 00:00:00 2021-08-07 00:00:00 Patient Secure Msg Ca Martinez [facility] 1.2.840.114 350.1.13.10 4.2.7.2.686 [id number] [facility] 2021-08-07 00:00:00 2021-08-07 00:00:00 Patient Secure Msg Desiree Mohr [facility] 1.2.840.114 350.1.13.10 4.2.7.2.686 [id number] [facility] 2021-08-04 10:00:00 2021-08-04 10:00:00 Outpatient R EPTRA RENO [facility] [id number] [facility] 2021-08-04 00:00:00 2021-08-04 00:00:00 Patient Secure Msg Ca Martinez [facility] 1.2.840.114 350.1.13.10 4.2.7.2.686 [id number] [facility] 2021-08-03 11:00:00 2021-08-03 12:48:43 Office Visit Juan Diaz [facility] [employer] [facility]. 1.2.840.114 350.1.13.10 4.2.7.2.686 [id number] [facility] 2021-08-03 11:00:00 2021-08-03 12:48:43 Outpatient R JUAN DIAZ [facility] [id number] [facility] 2021-08-03 11:00:00 2021-08-03 11:00:00 Outpatient R JUAN DIAZ [facility] [id number] [facility] 2021-08-03 00:00:00 2021-08-03 00:00:00 Patient Secure Msg Desiree Mohr [facility] 1.2.840.114 350.1.13.10 4.2.7.2.686 [id number] [facility] 2021-08-02 00:00:00 2021-08-02 00:00:00 Telephone Juan Ca [facility]?KARLOSKassandra [facility] 1.2.840.114 350.1.13.10 4.2.7.2.686 [id number] [facility] 2021-07-21 08:00:00 2021-07-21 08:52:53 Outpatient DARRION QUIROZ HOWARD [facility] [id number] [facility] 2021-07-17 11:30:00 2021-07-17 11:30:00 Outpatient CA ARAUZ [facility] [id number] [facility] 2021-07-17 00:00:00 2021-07-17 00:00:00 Patient Secure Msg Juan Ca [facility]?KARLOSKassandra [facility] 1.840.114 350.1.13.10 4.2.7.2.686 [id number] [facility] 2021-06-19 00:00:00 2021-06-19 00:00:00 Telephone Ca Martinez [facility] 1.840.114 350.1.13.10 4.2.7.2.686 [id number] [facility] 2021-06-09 00:00:00 2021-06-09 00:00:00 Telephone Reji Garcia [facility] EDNA ESCUDEROIO NAL BUILDING 1..840.114 350.1.13.10 4.2.7.2.686 [id number] [facility] 2021-06-06 11:15:00 2021-06-06 11:15:00 Outpatient R TETO CARNES [facility] [id number] [facility] 2021-06-06 11:15:00 2021-06-06 11:15:00 Outpatient R TETO CARNES [facility] [id number] [facility] 2021-06-02 15:45:00 2021-06-02 15:45:00 Outpatient R CRISTINACARMELINA IBRAHIMRICO [facility] [id number] [facility] 2021-05-31 10:00:00 2021-05-31 10:46:31 Outpatient R CA MARTINEZ [facility] [id number] [facility] 2021-05-31 10:00:00 2021-05-31 10:46:31 Office Visit Juan Ca [facility] 1.840.114 350.1.13.10 4.2.7.2.686 [id number] [facility] 2021-05-31 10:00:00 2021-05-31 10:46:31 Outpatient R CA MARTINEZ [facility] [id number] [facility] 2021-05-31 00:00:00 2021-05-31 00:00:00 Orders Only Doctor Unassigned, [place] [facility] 1.84.114 350.1.13.10 4.2.7.2.686 [id number] [facility] 2021-05-26 00:00:00 2021-05-26 00:00:00 Telephone Skylar Groves [facility] 1.84.114 350.1.13.10 4.2.7.2.686 [id number] [facility] 2021-05-26 00:00:00 2021-05-26 00:00:00 Patient Secure Msg Prasanna Vargas [facility] NAL BUILDING 1.114 350.1.13.10 4.2.7.2.686 [id number] [facility] 2021-05-25 14:00:00 2021-05-25 14:30:00 Telemedici ne Visit Skylar Groves [facility] MED[facility] OFF[facility] BUILD[facility] 1.2.840.114 350.1.13.10 4.2.7.2.686 [id number] [facility] 2021-05-25 14:00:00 2021-05-25 14:00:00 Outpatient R SKYLAR GROVES [facility] [id number] [facility] 2021-05-25 14:00:00 2021-05-25 14:00:00 Outpatient R SKYLAR GROVES [facility] [id number] [facility] 2021-05-25 00:00:00 2021-05-25 00:00:00 Patient Secure Msg Skylar Groves [facility] BUILD[facility] 1.2.840.114 350.1.13.10 4.2.7.2.686 [id number] [facility] 2021-05-25 00:00:00 2021-05-25 00:00:00 Patient Secure Msg Skylar Groves [facility] OFF[facility] BUILD[facility] 1.2.840.114 350.1.13.10 4.2.7.2.686 [id number] [facility] 2021-05-24 00:00:00 2021-05-24 00:00:00 Telephone Rad Serra [facility] E[facility] BUILDING 1.2.840.114 350.1.13.10 4.2.7.2.686 [id number] [facility] 2021-05-24 00:00:00 2021-05-24 00:00:00 Patient Secure Msg Rad SerraPilarPauloPilar [facility] BUILDING 1.2.840.114 350.1.13.10 4.2.7.2.686 [id number] [facility] 2021-05-24 00:00:00 2021-05-24 00:00:00 Patient Secure Msg Claudette Evans [facility] 1..840.114 350.1.13.10 4.2.7.2.686 [id number] [facility] 2021-05-23 10:00:00 2021-05-23 10:00:00 Outpatient R [facility] [id number] [facility] 2021-05-23 10:00:00 2021-05-23 10:00:00 Outpatient R [facility] [id number] [facility] 2021-05-23 00:00:00 2021-05-23 00:00:00 Patient Secure Msg lCaudette Evans [facility] BUILD[facility] 1.2.840.114 350.1.13.10 4.2.7.2.686 [id number] [facility] 2021-05-16 09:00:00 2021-05-16 09:00:00 Outpatient R TETO CARNES [facility] [id number] [facility] 2021-05-12 00:00:00 2021-05-12 00:00:00 Orders Only Doctor Unassigned, [place] [facility] 1..840.114 350.1.13.10 4.2.7.2.686 [id number] [facility] 2021-05-10 13:00:00 2021-05-10 13:00:00 Outpatient R CLAUDETTE EVANS [facility] [id number] [facility] 2021-05-10 13:00:00 2021-05-10 13:00:00 Outpatient Farzana CLINECRISTINACLAUDETTE IBRAHIM [facility] [id number] [facility] 2021-05-09 00:00:00 2021-05-09 00:00:00 Telephone [facility] 1.2.840.114 350.1.13.10 4.2.7.2.686 [id number] [facility] 2021-05-09 00:00:00 2021-05-09 00:00:00 Patient Secure Msg Rad Serra K.HPilar [facility] BUILDING 1..840.114 350.1.13.10 4.2.7.2.686 [id number] [facility] 2021-05-08 16:00:00 2021-05-08 16:00:00 Outpatient JE CRABTREE [facility] [id number] [facility] 2021-05-08 16:00:00 2021-05-08 16:00:00 Outpatient JE CRABTREE [facility] [id number] [facility] 2021-05-08 00:00:00 2021-05-08 00:00:00 Patient Secure Msg Rad Serra K.HPilar [facility] BUILDING 1..840.114 350.1.13.10 4.2.7.2.686 [id number] [facility] 2021-05-08 00:00:00 2021-05-08 00:00:00 Patient Secure Msg Rad Serra K.HPilar [facility] BUILDING 1.2.840.114 350.1.13.10 4.2.7.2.686 [id number] [facility] 2021-05-04 00:00:00 2021-05-04 00:00:00 Patient Secure Msg Delroy Sendzohra K.HPilar [facility] BUILDING 1.840.114 350.1.13.10 4.2.7.2.686 [id number] [facility] 2021-05-04 00:00:00 2021-05-04 00:00:00 Patient Secure Msg Radha [facility] BUILDING 1.84.114 350.1.13.10 4.2.7.2.686 [id number] [facility] 2021-05-03 11:15:36 2021-05-03 23:59:00 Outpatient R RADHA [facility] [id number] [facility] 2021-05-03 11:15:36 2021-05-03 23:59:00 [facility] 1.84.114 350.1.13.10 4.2.7.2.686 [id number] [facility] 2021-05-03 00:00:00 2021-05-03 00:00:00 Telephone Claudette Evans [facility] 1.84.114 350.1.13.10 4.2.7.2.686 [id number] [facility] 2021-05-02 00:00:00 2021-05-02 00:00:00 Telephone Rad Serra [facility] BUILDING 1.840.114 350.1.13.10 4.2.7.2.686 [id number] [facility] 2021-05-02 00:00:00 2021-05-02 00:00:00 Patient Secure Msg Cristina Claudette Kassandra [facility] MED[facility] OFF[facility] BUILDING 1.2840.114 350.1.13.10 4.2.7.2.686 [id number] [facility] 2021-05-02 00:00:00 2021-05-02 00:00:00 Telephone Claudette Evans [facility] 1.2.840.114 350.1.13.10 4.2.7.2.686 [id number] [facility] 2021-05-02 00:00:00 2021-05-02 00:00:00 Patient Secure Msg DelroyRadPaulo. [facility] NAL BUILDING 1.284.114 350.1.13.10 4.2.7.2.686 [id number] [facility] 2021-05-02 00:00:00 2021-05-02 00:00:00 Patient Secure Msg Claudette Evans [facility] BU[facility] 1.2840.114 350.1.13.10 4.2.7.2.686 [id number] [facility] 2021-04-28 00:00:00 2021-04-28 00:00:00 Patient Secure Msg Claudette Evans [facility] BUILD[facility] 1.2840.114 350.1.13.10 4.2.7.2.686 [id number] [facility] 2021-04-27 14:24:00 2021-04-27 15:49:00 Emergency X MAGGIE HAMILTON [facility] [id number] [facility] 2021-04-27 14:24:00 2021-04-27 15:49:00 Emergency Maggie Hamilton [facility] 1.2840.114 350.1.13.10 4.2.7.2.686 [id number] [facility] 2021-04-27 11:15:00 2021-04-27 11:30:00 Laboratory Only Only, Ang Db Test Unknown, Attending Thony Johnson [facility] 1.114 350.1.13.10 4.2.7.2.686 [id number] [facility] 2021-04-27 11:15:00 2021-04-27 11:15:00 Outpatient R THONY JOHNSON [facility] [id number] [facility] 2021-04-27 00:00:00 2021-04-27 00:00:00 Orders Only Doctor Unassigned, [place] [facility] 1.114 350.1.13.10 4.2.7.2.686 [id number] [facility] 2021-04-20 15:00:00 2021-04-20 15:00:00 Outpatient R SCOTT GILBERT [facility] [id number] [facility] 2021-04-13 00:00:00 2021-04-13 00:00:00 Patient Secure Msg Claudette Evans [facility] MED[facility] OFF[facility] BUILDING 1.114 350.1.13.10 4.2.7.2.686 [id number] [facility] 2021-04-12 00:00:00 2021-04-12 00:00:00 Telephone CristinaClaudette ibrahim [facility] MED[facility] OFF[facility] BUILDING 1.114 350.1.13.10 4.2.7.2.686 [id number] [facility] 2021-03-27 00:00:00 2021-03-27 00:00:00 Telephone Prasanna Vargas [facility] EDNA ESCUDEROIO NAL BUILDING 1.114 350.1.13.10 4.2.7.2.686 [id number] [facility] 2021-03-24 00:00:00 2021-03-24 00:00:00 Patient Secure Msg Doctor Unassigned, [place] [facility] 1..114 350.1.13.10 4.2.7.2.686 [id number] [facility] 2021-03-23 13:30:00 2021-03-23 13:30:00 [facility] [id number] [facility] 2021-03-23 13:30:00 2021-03-23 13:30:00 Outpatient R KAVYA [facility] [id number] [facility] 2021-03-22 09:20:00 2021-03-22 09:20:00 [facility] [id number] [facility] 2021-03-22 09:20:00 2021-03-22 09:20:00 Outpatient R ADITYA MEEKS STRAILEz [facility] [id number] [facility] 2021-03-20 00:00:00 2021-03-20 00:00:00 Outpatient R CLAUDETTE EVANS [facility] [id number] [facility] 2021-03-18 00:00:00 2021-03-18 00:00:00 Case Management Claudette Evans A [facility] MEDICAL OFFICE BUILDING 1.840.114 350.1.13.10 4.2.7.2.686 [id number] [facility] 2021-03-16 11:16:07 2021-03-16 11:31:07 Mottler Operator Visit Lab, Ang - Db Claudette Evans A [facility] MEDICAL OFFICE BUILDING 1.840.114 350.1.13.10 4.2.7.2.686 [id number] [facility] 2021-03-16 11:30:00 2021-03-16 11:30:00 Outpatient R CLAUDETTE EVANS [facility] [id number] [facility] 2021-03-16 11:00:00 2021-03-16 11:14:45 Outpatient R CLAUDETTE EVANS [facility] [id number] [facility] 2021-03-16 10:00:58 2021-03-16 11:14:45 Office Visit Claudette Evans [facility] MED[facility] OFFICE BUILDING 1.2.840.114 350.1.13.10 4.2.7.2.686 [id number] [facility] 2021-03-16 00:00:00 2021-03-16 00:00:00 Patient Secure Msg Claudette Evans [facility] MEDICAL OFFICE BUILDING 1.2.840.114 350.1.13.10 4.2.7.2.686 [id number] [facility] 2021-03-02 16:15:00 2021-03-02 16:15:00 Outpatient R CARMELINA EVNASTAINAANITRA [facility] [id number] [facility] 2021-02-28 18:30:00 2021-02-28 18:30:00 Outpatient R WILLIE MEDRANO [facility] [id number] [facility] 2021-02-28 00:00:00 2021-02-28 00:00:00 [facility] Medical Office Building 1.2.840.114 350.1.13.10 4.2.7.2.686 [id number] [facility] 2021-02-27 09:00:00 2021-02-27 09:00:00 Outpatient R AMELIA HAMMOND [facility] [id number] [facility] 2021-02-23 00:00:00 2021-02-23 00:00:00 Telephone Claudette Evans [facility] Talya?[facility] Medical Office Building 1.2.840.114 350.1.13.10 4.2.7.2.686 [id number] [facility] 2021-02-10 18:12:00 2021-02-10 23:39:00 Emergency Kaycee Méndez [facility] 1.2840.114 350.1.13.10 4.2.7.2.686 [id number] [facility] 2021-02-10 00:00:00 2021-02-10 00:00:00 Patient Secure Msg Branden Evansful Kassandra [facility] MEDICAL OFFICE BUILD[facility] 1.2840.114 350.1.13.10 4.2.7.2.686 [id number] [facility] 2021-02-10 00:00:00 2021-02-10 00:00:00 Patient Secure Msg Branden Evansful Kassandra [facility] MED[facility] OFFICE [facility] 1.2840.114 350.1.13.10 4.2.7.2.686 [id number] [facility] 2021-02-10 00:00:00 2021-02-10 00:00:00 Patient Secure Msg Branden Evansful [facility] ANGLEROBERTA TALYA?[facility] MEDICAL OFFICE BUILD[facility] 1.2840.114 350.1.13.10 4.2.7.2.686 [id number] [facility] 2021-02-10 00:00:00 2021-02-10 00:00:00 Patient Secure Msg Carmelina Evansdiful A [facility] ANGLEROBERTA TALYA?[facility] MEDICAL OFFICE BUILD[facility] 1.2840.114 350.1.13.10 4.2.7.2.686 [id number] [facility] 2021-02-09 13:40:00 2021-02-09 23:59:00 [facility] Medical Office Building 1.2.840.114 350.1.13.10 4.2.7.2.686 [id number] [facility] 2021-02-09 13:49:05 2021-02-09 14:04:05 Mottler Operator Visit Lab, Ang - Db Claudette Evans [facility] Talya?[facility] Medical Office Building 1.2.840.114 350.1.13.10 4.2.7.2.686 [id number] [facility] 2021-02-09 12:23:13 2021-02-09 13:47:12 [facility] Medical Office Building 1.2.840.114 350.1.13.10 4.2.7.2.686 [id number] [facility] 2021-02-09 13:00:00 2021-02-09 13:00:00 Outpatient R CRISTINACARMELINA IBRAHIMRICO [facility] [id number] [facility] 2021-02-09 00:00:00 2021-02-09 00:00:00 Patient Secure Msg Doctor Unassigned, [place] [facility] 1.2.840.114 350.1.13.10 4.2.7.2.686 [id number] [facility] 2021-02-08 10:20:00 2021-02-08 10:20:00 Outpatient ADITYA FRAUSTO STRAHIL [facility] [id number] [facility] 2021-02-07 00:00:00 2021-02-07 00:00:00 Patient Secure Msg Claudette Evans [facility] TALYA?[facility] MEDICAL OFFICE BUILDING 1.2.840.114 350.1.13.10 4.2.7.2.686 [id number] [facility] 2021-02-02 10:30:00 2021-02-02 10:30:00 Outpatient Farzana COHNBRODIESKYLAR [facility] [id number] [facility] 2021-02-02 00:00:00 2021-02-02 00:00:00 Telephone Claudette Evans [facility] Talya?[facility] Medical Office Building 1.2.840.114 350.1.13.10 4.2.7.2.686 [id number] [facility] [facility] 2021-[facility]-01 08:30:00 2021-02-01 08:30:00 Outpatient SKYLAR CEBALLOS [facility] [id number] [facility] 2021-01-31 18:44:04 2021-01-31 19:41:26 [facility]a?[facility] Medical Office Building 1.2.840.114 350.1.13.10 4.2.7.2.686 [id number] [facility] 2021-01-31 19:00:00 2021-01-31 19:00:00 Outpatient R FLACO BOYD [facility] [id number] [facility] 2021-01-31 00:00:00 2021-01-31 00:00:00 Telephone Claudette Evans [facility] Talya?[facility] Medical Office Building 1.2.840.114 350.1.13.10 4.2.7.2.686 [id number] [id number] [facility] 2021-01-31 00:00:00 2021-01-31 00:00:00 Patient Secure Msg Claudette Evans [facility] MEDICAL OFFICE BUILDING 1.84.114 350.1.13.10 4.2.7.2.686 [id number] 044 [id number] [facility] 2021-01-30 00:00:00 2021-01-30 00:00:00 Telephone Rad Serra [facility] Building 1.84.114 350.1.13.10 4.2.7.2.686 [id number] [facility] 2021-01-30 00:00:00 2021-01-30 00:00:00 Patient Secure g Claudette Evans [facility] OFFICE BUILDING ONE 1.84.114 350.1.13.10 4.2.7.2.686 [id number] [facility] 2021-01-26 14:00:00 2021-01-26 14:00:00 Outpatient R RAD SERRA [facility] [id number] [facility] 2021-01-26 00:00:00 2021-01-26 00:00:00 Patient Secure g Skylar Groves [facility] MEDICAL OFFICE BUILDING 1.840.114 350.1.13.10 4.2.7.2.686 [id number] [facility] 2021-01-25 15:00:00 2021-01-25 15:00:00 Outpatient R [facility] [id number] [facility] 2021-01-21 00:00:00 2021-01-21 00:00:00 Patient Secure Msg Skylar Groves [facility] MEDICAL OFFICE BUILDING 1.84.114 350.1.13.10 4.2.7.2.686 [id number] [facility] 2021-01-20 16:51:22 2021-01-20 17:12:41 Telemedici ne Visit Skylar Groves [facility]?Karloskassandra [facility] Medical Office Building 1.2.840.114 350.1.13.10 4.2.7.2.686 [id number] [facility] 2021-01-20 16:30:00 2021-01-20 16:30:00 Outpatient R SKYLAR GROVES [facility] [id number] [facility] 2021-01-19 10:15:00 2021-01-19 10:15:00 Outpatient R KAYLEY GARCÍA [facility] [id number] [facility] 2021-01-14 00:00:00 2021-01-14 00:00:00 Case Management Kassandra Benavides [facility] 1.2840.114 350.1.13.10 4.2.7.2.686 [id number] [facility] 2021-01-14 00:00:00 2021-01-14 00:00:00 Patient Secure Msg Doctor Unassigned, [place] [facility] 1.2840.114 350.1.13.10 4.2.7.2.686 [id number] [facility] 2021-01-12 16:10:00 2021-01-12 19:45:00 Emergency MatthewsHany elkins R [facility] 1.2.840.114 350.1.13.10 4.2.7.2.686 [id number] [facility] 2021-01-12 15:20:00 2021-01-12 15:20:00 Outpatient WILLIE CASE [facility] [id number] [facility] 2021-01-12 14:46:57 2021-01-12 15:06:57 Urgent Care Thony Johnson Willie [facility]?Lino [place] Medical Office Building 1.2.840.114 350.1.13.10 4.2.7.2.686 [id number] [facility] 2020-12-26 15:30:00 2020-12-26 16:13:32 Outpatient R RAD SERRA [facility] [id number] [facility] 2020-12-26 15:30:00 2020-12-26 16:13:32 Office Visit Rad Serra [facility] BUILDING 1..840.114 350.1.13.10 4.2.7.2.686 [id number] [facility] 2020-12-26 15:00:32 2020-12-26 16:13:32 Office Visit Rad Serra [facility] Building 1..840.114 350.1.13.10 4.2.7.2.686 [id number] [facility] 2020-12-26 15:30:00 2020-12-26 15:30:00 Outpatient R RAD SERRA [facility] [id number] [facility] 2020-11-29 00:00:00 2020-11-29 00:00:00 Patient Secure Msg Rad Serra [facility] BUILDING 1.2.840.114 350.1.13.10 4.2.7.2.686 [id number] [facility] 2020-11-22 11:00:00 2020-11-22 11:00:00 Outpatient R DESIREE MOHR [facility] [id number] [facility] 2020-11-10 18:42:46 2020-11-10 19:53:43 Urgent Care Alissa Collins [facility] Office Building One 1..840.114 350.1.13.10 4.2.7.2.686 [id number] 2020-11-10 19:00:00 2020-11-10 19:00:00 Outpatient R [facility] [id number] [facility] 2020-10-31 18:52:00 2020-10-31 22:15:00 [facility] 1.2840.114 350.1.13.10 4.2.7.2.686 [id number] 2020-10-31 19:00:00 2020-10-31 19:00:00 Outpatient BEBA TUTTLE [facility] [id number] [facility] 2020-10-31 00:00:00 2020-10-31 00:00:00 Orders Only Doctor Unassigned, [place] [facility] 1.2840.114 350.1.13.10 4.2.7.2.686 [id number] 2020-10-20 14:02:00 2020-10-20 17:13:00 [facility] 1.2840.114 350.1.13.10 4.2.7.2.686 [id number] 2020-10-18 00:00:00 2020-10-18 00:00:00 Patient Secure Msg Prasanna Vargas [facility] BUILD[facility] 1.2840.114 350.1.13.10 4.2.7.2.686 [id number] [facility] 2020-10-14 10:00:00 2020-10-14 23:59:00 Hospital Encounter Prasanna Vargas [facility] 1.2840.114 350.1.13.10 4.2.7.2.686 [id number] 2020-10-14 13:30:00 2020-10-14 13:30:00 DESIREE Villagran [facility] [id number] [facility] 2020-10-11 00:00:00 2020-10-11 00:00:00 Patient Secure g Prasanna Vargas [facility] NAL BUILDING 1.2.840.114 350.1.13.10 4.2.7.2.686 [id number] 134 [id number] [facility] 2020-10-11 00:00:00 2020-10-11 00:00:00 Patient Secure g [facility] 1.2.840.114 350.1.13.10 4.2.7.2.686 [id number] [facility] 2020-10-09 12:00:00 2020-10-09 15:57:00 Emergency Lydia Kim [facility] 1.2.840.114 350.1.13.10 4.2.7.2.686 [id number] 2020-10-07 00:00:00 2020-10-07 00:00:00 Patient Secure g [facility]anna [facility] 1.2.840.114 350.1.13.10 4.2.7.2.686 [id number] 134 [id number] [facility] 2020-10-07 00:00:00 2020-10-07 00:00:00 Patient Secure g Prasanna Vargas [facility] NAL BUILDING 1.2.840.114 350.1.13.10 4.2.7.2.686 [id number] 134 [id number] [facility] 2020-10-07 00:00:00 2020-10-07 00:00:00 Patient Secure Msg [facility]anna [facility] 1.2.840.114 350.1.13.10 4.2.7.2.686 [id number] 134 [id number] [facility] 2020-10-07 00:00:00 2020-10-07 00:00:00 Patient Secure g Prasanna Vargas [facility] NAL BUILDING 1.2.840.114 350.1.13.10 4.2.7.2.686 [id number] [facility] 2020-10-07 00:00:00 2020-10-07 00:00:00 Patient Secure g Prasanna Vargas [facility]ESS[facility] NAL BUILDING 1.2.840.114 350.1.13.10 4.2.7.2.686 [id number] 134 [id number] [facility] 2020-10-07 00:00:00 2020-10-07 00:00:00 Patient Secure g [facility] 1.2.840.114 350.1.13.10 4.2.7.2.686 [id number] 134 [id number] [facility] 2020-10-07 00:00:00 2020-10-07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 1.4 % BASO % (test code = 706-2) 0.3 % GRAN MAT x10^3(ANC) (test code = 3317609004) 7.18 10*3/uL 1.88-7.09 H IMM GRAN x10^3 (test code = 8600569449) 0.03 10*3/uL 0.00-0.06 LYMPH x10^3 (test code = 731-0) 1.28 10*3/uL 1.32-3.29 L MONO x10^3 (test code = 742-7) 0.34 10*3/uL 0.33-0.92 EOS x10^3 (test code = 711-2) 0.13 10*3/uL 0.03-0.39 BASO x10^3 (test code = 704-7) 0.03 10*3/uL 0.01-0.07 Lab Interpretation (test code = 34279-0) Abnormal [facility] CenterPOCT JHBM9568-12-78 13:14:00* Test Item Value Reference Range Interpretation Comme nts POCT PREG (test code = 1605) Negative On board controls acceptable with C Line (test code = 3574) Yes POCT PREG LOT # (test code = 3575) [id number] POCT PREG TEST DATE ( test code = 3576) 02/14/2025 Lab Interpretation (test cod e = 63130-9) Normal [facility] CenterENDOSCOPY PROCEDURE WFSGTIZGUJCYZ7729-05-59 14:46:53Ordered by an unspecified provider.[facility] Tissue Transglutaminase (TTG) [id number] 19:09:23* Test Item Value Reference Range Interpretation Comme [facility] Tissue Transglutaminase (tTG) Ab, IgA Interpretation (test code = 90701-3) Negative Negative Tissue Transglutaminase (tTG) Ab, IgA (test code = 7713939406) 1.1 U/mL <=7.0 WESLEY (test code = WESLEY) < 7 U/mL ? Negative7 - 10 U/mL ?Equivocal> 10 U/mL ?Positive In case of equivocal results, we recommend to retest the patient after 8 -12 weeks. Lab Interpretation (test code = 66526-5) Normal [facility] CenterTissue Transglutaminase (TTG) [id number] 19:09:23* Test Item Value Reference Range Interpretation Comme [facility] Tissue Transglutaminase (tTG) Ab, IgA Interpretation (test code = 49322-9) Negative Negative Tissue Transglutaminase (tTG) Ab, IgA (test code = 1696069832) 1.1 U/mL <=7.0 WESLEY (test code = WESLEY) < 7 U/mL ? Negative7 - 10 U/mL ?Equivocal> 10 U/mL ?Positive In case of equivocal results, we recommend to retest the patient after 8 -12 weeks. Lab Interpretation (test code = 27794-8) Normal [facility] CenterDeamidated Gliadin [id number] 19:08:56* Test Item Value Reference Range Interpretation Comme nts Deamidated Gliadin Peptide (DGP) Ab, IgG Interpretation (test code = 48213-6) Negative Negative Deamidated Gliadin Peptide (DGP) Ab, IgG (test code = 4332186800) <=7.0 WESLEY (test code = WESLEY) < 7 U/mL ? Negative7 - 10 U/mL ?Equivocal> 10 U/mL ?Positive In case of equivocal results, we recommend to retest the patient after 8 -12 weeks. Lab Interpretation (test code = 70489-1) Normal [facility] CenterDeamidated Gliadin [id number] 19:08:56* Test Item Value Reference Range Interpretation Comme nts Deamidated Gliadin Peptide (DGP) Ab, IgG Interpretation (test code = 11089-6) Negative Negative Deamidated Gliadin Peptide (DGP) Ab, IgG (test code = 1344580196) <=7.0 WESLEY (test code = WESLEY) < 7 U/mL ? Negative7 - 10 U/mL ?Equivocal> 10 U/mL ?Positive In case of equivocal results, we recommend to retest the patient after 8 -12 weeks. Lab Interpretation (test code = 35274-2) Normal [facility] CenterDeamidated Gliadin [id number] 19:08:55* Test Item Value Reference Range Interpretation Comme nts Deamidated Gliadin Peptide (DGP) Ab, IgA Interpretation (test code = 38335-3) Negative Negative Deamidated Gliadin Peptide (DGP) Ab, IgA (test code = 5211620190) 0.8 U/mL <=7.0 WESLEY (test code = WESLEY) < 7 U/mL ? Negative7 - 10 U/mL ?Equivocal> 10 U/mL ?Positive In case of equivocal results, we recommend to retest the patient after 8 -12 weeks. Lab Interpretation (test code = 19730-4) Normal [facility] CenterDeamidated Gliadin Rgk2114-69-42 19:08:55* Test Item Value Reference Range Interpretation Comme nts Deamidated Gliadin Peptide (DGP) Ab, IgA Interpretation (test code = 63115-2) Negative Negative Deamidated Gliadin Peptide (DGP) Ab, IgA (test code = 5870771806) 0.8 U/mL <=7.0 WESLEY (test code = WESLEY) < 7 U/mL ? Negative7 - 10 U/mL ?Equivocal> 10 U/mL ?Positive In case of equivocal results, we recommend to retest the patient after 8 -12 weeks. Lab Interpretation (test code = 93034-1) Normal [facility] CenterXR [id number] 21:07:52EXAM: XR KUB HISTORY: 29 years-old Female; Provided indication: Checking for bowelobstruction or con stipation . TECHNIQUE: Frontal view of the abdomen and pelvis COMPARISON: [facility] [id number] 21:07:52EXAM: XR KUB HISTORY: 29 years-old Female; Provided indication: Checking for bowelobstruction or constipation . TECHNIQUE: Frontal view of the abdomen and pelvis COMPARISON: MR abdomen [facility] WO CONTRAST [id number] 21:07:42EXAM: MRI ABDOMEN with and without CONTRAST [...] cholecystectomy. There is a tiny focus of W5ysrkpylkljhjpz seen only on the T2 fat-suppressed axial [...] No lymphadenopathy. VESSELS:Unremarkable. BONES AND SOFT TISSUES: Unremarkable.[facility] CenterMR ABDOMEN W WO CONTRAST [id number] 21:07:42EXAM: MRI ABDOMEN with and without CONTRAST [...] cholecystectomy. There is a tiny focus of A7eigwoudklkcrwv seen only on the T2 fat-suppressed axial [...] No lymphadenopathy. VESSELS:Unremarkable. BONES AND SOFT TISSUES: Unremarkable.[facility] GLUCOSE (AUTOMATED) 2024-02-24 01:35:26* Test Item Value Reference Range Interpretation Comme nts POCT GLU (test code = 0793064616) 95 mg/dL 70-110 Lab Interpretation (test cod e = 00837-0) Normal [facility] GLUCOSE (AUTOMATED)2024-02-24 01:35:26* Test Item Value Reference Range Interpretation Comme nts POCT GLU (test code = 5637204220) 95 mg/dL 70-110 Lab Interpretation (test cod e = 80211-7) Normal [facility] CenterHcv Wkamnubo9921-50-07 21:28:55* Test Item Value Reference Range Interpretation Comme nts HCV Ab (test code = 62013-3) Negative HCV Semi-Quantitative (test code = 76217-1) 0.01 [facility] CenterHcv Rjykewnd8177-53-07 21:28:55* Test Item Value Reference Range Interpretation Comme nts HCV Ab (test code = 08049-2) Negative HCV Semi-Quantitative (test code = 39638-5) 0.01 [facility] CenterC-Reactive Luxeobo8785-62-83 18:59:19* Test Item Value Reference Range Interpretation Comme nts CRP (test code = 3221079680) 0.3 mg/dL <=0.8 Lab Interpretation (test cod e = 52948-5) Normal [facility] CenterC-Reactive Nsvkzte0571-57-24 18:59:19* Test Item Value Reference Range Interpretation Comme nts CRP (test code = 7493120897) 0.3 mg/dL <=0.8 Lab Interpretation (test cod e = 02555-8) Normal [facility] B Surface Oytqogiv4970-63-97 16:37:53* Test Item Value Reference Range Interpretation Comme nts HBsAB (test code = 2919580476) Negative HBsAb Semi-Quantitative (test code = 6922552112) 0.00 mIU/mL WESLEY (test code = WESLEY) Interpretation: ?Hepatitis B Surface Antibody ? Negative - Patient is considered to be not immune to infection with HBV. ? ? Positive - Anti-HBs detected at greater than or equal to 12 mIU/mL. ?Patient is considered to be immune to infection with HBV. ? [facility] B Surface Ewhwdljg1125-29-99 16:37:53* Test Item Value Reference Range Interpretation Comme nts HBsAB (test code = 9295255663) Negative HBsAb Semi-Quantitative (test code = 9177471770) 0.00 mIU/mL WESLEY (test code = WESLEY) Interpretation: ?Hepatitis B Surface Antibody ? Negative - Patient is considered to be not immune to infection with HBV. ? ? Positive - Anti-HBs detected at greater than or equal to 12 mIU/mL. ?Patient is considered to be immune to infection with HBV. ? [facility] CenterHIV 1/2 Ag-Ab with Fticmz2401-46-08 16:37:47* Test Item Value Reference Range Interpretation Comme [facility] HIV Semi-quantitative (test code = 65901-1) 0.09 Negative WESLEY (test code = WESLEY) Non-reactive for HIV-1 antigen and HIV-1/HIV-2 antibodies. ?No laboratory evidence of HIV infection. ?Repeat in 2-4 weeks if acute HIV infection is suspected. [facility] B Surface Amokgbr4880-57-42 16:37:47 * Test Item Value Reference Range Interpretation Comme [facility] HBsAg Semi-Quantitative (maeve t code = 5195-3) 0.12 [facility] with Piyvcz8086-51-51 16:37:47* Test Item Value Reference Range Interpretation Comme [facility] HIV Semi-quantitative (test code = 98093-1) 0.09 Negative WESLEY (test code = WESLEY) Non-reactive for HIV-1 antigen and HIV-1/HIV-2 antibodies. ?No laboratory evidence of HIV infection. ?Repeat in 2-4 weeks if acute HIV infection is suspected. [facility] CenterHepatitis B Surface Kuigsnq9161-09-98 16:37:47 * Test Item Value Reference Range Interpretation Comme nts HBsAg Semi-Quantitative (maeve t code = 5195-3) 0.12 Negative [facility] CenterHbc Antibody (IgM & IgG)2024-02-23 16:37:42* Test Item Value Reference Range Interpretation Comme nts HBC (test code = 7751950544) Negative HBC Semi-Quantitative (test code = 4242598831) 3.51 [facility] CenterHbc Antibody (IgM & IgG)2024-02-23 16:37:42* Test Item Value Reference Range Interpretation Comme nts HBC (test code = 9533384077) Negative HBC Semi-Quantitative (test code = 3659768142) 3.51 [facility] CenterSedimentation Xuxq6397-04-90 13:48:13* Test Item Value Reference Range Interpretation Comme nts ESR (test code = 01413-5) 23 2-30 Lab Interpretation (test cod e = 90872-1) Normal [facility] CenterSedimentation Zkkv9460-51-56 13:48:13* Test Item Value Reference Range Interpretation Comme nts ESR (test code = 18923-8) 23 2-30 Lab Interpretation (test cod e = 25100-9) Normal [facility] CenterHepatic Function Panel (71868) (ALB,T.PRO,BILI T,BU/BC,ALT,AST,ALK PHOS)2024-02-22 19:51:55* Test Item Value Reference Range Interpretation Comme nts TOTAL BILI (test code = 9707934645) 1.0 mg/dL 0.1-1.1 BILI UNCON (test code = 9969716967) 0.4 mg/dL 0.1-1.1 BILI CONJ (test code = 2948389132) 0.0 mg/dL 0.0-0.3 T PROTEIN (test code = 6329866962) 8.5 g/dL 6.3-8.2 H ALBUMIN (test code = 5601415547) 4.9 g/dL 3.5-5.0 ALK PHOS (test code = 1595246051) 87 U/L 34-122 Slight hemolysis ALTv (test code = 1742-6) 77 U/L 5-35 H AST(SGOT) (test code = 3563346148) 57 U/L 13-40 H Slight hemolysis Lab Interpretation (test code = 04789-9) Abnormal [facility] CenterHepatic Function Panel (93126) (ALB,T.PRO,BILI T,BU/BC,ALT,AST,ALK PHOS)2024-02-22 19:51:55* Test Item Value Reference Range Interpretation Comme nts TOTAL BILI (test code = 5254970650) 1.0 mg/dL 0.1-1.1 BILI UNCON (test code = 9271527219) 0.4 mg/dL 0.1-1.1 BILI CONJ (test code = 8867980316) 0.0 mg/dL 0.0-0.3 T PROTEIN (test code = 2833726771) 8.5 g/dL 6.3-8.2 H ALBUMIN (test code = 2796243524) 4.9 g/dL 3.5-5.0 ALK PHOS (test code = 6246740639) 87 U/L 34-122 Slight hemolysis ALTv (test code = 1742-6) 77 U/L 5-35 H AST(SGOT) (test code = 2344022658) 57 U/L 13-40 H Slight hemolysis Lab Interpretation (test code = 55838-4) Abnormal [facility] CenterXR CHEST 2 [id number] 18:19:37ORDERING PROVIDER: ?COLIN ELMORE MORRICAL HISTORY: Hematemesis TECHNIQUE: Frontal and lateral views of the Chest. [facility] [id number] 18:19:37ORDERING PROVIDER: ?COLIN ELMORE MORRICAL HISTORY: Hematemesis TECHNIQUE: Frontal and lateral views of the Chest. [facility] XSZCGYC0120-02-00 17:50:15ORDERING PROVIDER: COLIN ELMORE MORRICAL HISTORY: N/v/diarrhea [...] lesions. ?There is normal corticalthickness, contour and echogenicity.[facility] [id number] 17:50:15ORDERING PROVIDER: COLIN ELMORE MORRICAL HISTORY: N/v/diarrhea [...] lesions. ?There is normal corticalthickness, contour and echogenicity.[facility] [id number] 15:52:12* Test Item Value Reference Range Interpretation Comme nts TROPONIN I (test code = 8234252978) 0.006 ng/mL <=0.034 WESLEY (test code = [...] of biotin. Lab Interpretation (test code = 20134-9) Normal [facility] [id number] 15:52:12* Test Item Value Reference Range Interpretation Comme nts TROPONIN I (test code = 5535363034) 0.006 ng/mL <=0.034 WESLEY (test code = [...] of biotin. Lab Interpretation (test code = 79532-8) Normal [facility], [id number] 15:52:07* Test Item Value Reference Range Interpretation Comme nts PREG SERUM (test code = 2285264498) Negative WESLEY (test code = WESLEY) Less than 10 IU/L. ?If low titer or ectopic is suspected, resubmit specimen in 48-72 hours. [facility], [id number] 15:52:07* Test Item Value Reference Range Interpretation Comme nts PREG SERUM (test code = 2879565540) Negative WESLEY (test code = WESLEY) Less than 10 IU/L. ?If low titer or ectopic is suspected, resubmit specimen in 48-72 hours. [facility]* Test Item Value Reference Range Interpretation Comme nts LIPASE (test code = 3993223420) 69 U/L 0-220 Lab Interpretation (test cod e = 20367-3) [facility] 15:40:04* Test Item Value Reference Range Interpretation Comme nts LIPASE (test code = 7932154782) 69 U/L 0-220 Lab Interpretation (test cod e = 79069-9) [facility] METABOLIC PANEL ([id number])2024-02-22 15:40:03* Test Item Value Reference Range Interpretation Comme nts NA (test code = 2165425439) 137 mmol/L 135-145 K (test code = 4235998839) 3.9 mmol/L 3.5-5.0 Slight hemolysis CL (test code = 1267392558) 102 mmol/L 98-108 CO2 TOTAL (test code = 3441613679) 24 mmol/L 23-31 AGAP (test code = 6148997460) 11 2-16 BUN (test code = 3150597755) 9 mg/dL 7-23 Slight hemolysis GLUCOSE (test code = 3706992727) 94 mg/dL 70-110 CREATININE (test code = 2160-0) 0.70 mg/dL 0.50-1.04 TOTAL BILI (test code = 2460838700) 1.0 mg/dL 0.1-1.1 CALCIUM (test code = 1383198936) 9.3 mg/dL 8.6-10.6 T PROTEIN (test code = 4134887583) 8.4 g/dL 6.3-8.2 H ALBUMIN (test code = 4209306965) 5.0 g/dL 3.5-5.0 ALK PHOS (test code = 1390188704) 79 U/L 34-122 Slight hemolysis ALTv (test code = 1742-6) 74 U/L 5-35 H AST(SGOT) (test code = 9320887269) 57 U/L 13-40 H Slight hemolysis eGFR (test code = 02450-4) 120.2 mL/min/1.73m2 CKD-EPI eGFR (2020). Assuming creatinine has been stable day-to-day for at least three months, the eGFR indicates Category G1 (>= 90 mL/min/1.73 m2) Lab Interpretation (test code = 13642-0) Abnormal [facility]. METABOLIC PANEL ([id number])2024-02-22 15:40:03* Test Item Value Reference Range Interpretation Comme nts NA (test code = 8514167690) 137 mmol/L 135-145 K (test code = 3951167799) 3.9 mmol/L 3.5-5.0 Slight hemolysis CL (test code = 2779472082) 102 mmol/L 98-108 CO2 TOTAL (test code = 2857955813) 24 mmol/L 23-31 AGAP (test code = 5581168724) 11 2-16 BUN (test code = 5050411497) 9 mg/dL 7-23 Slight hemolysis GLUCOSE (test code = 1521407356) 94 mg/dL 70-110 CREATININE (test code = 2160-0) 0.70 mg/dL 0.50-1.04 TOTAL BILI (test code = 2693666796) 1.0 mg/dL 0.1-1.1 CALCIUM (test code = 5364676439) 9.3 mg/dL 8.6-10.6 T PROTEIN (test code = 5116618922) 8.4 g/dL 6.3-8.2 H ALBUMIN (test code = 7354931559) 5.0 g/dL 3.5-5.0 ALK PHOS (test code = 9633591502) 79 U/L 34-122 Slight hemolysis ALTv (test code = 1742-6) 74 U/L 5-35 H AST(SGOT) (test code = 1951017446) 57 U/L 13-40 H Slight hemolysis eGFR (test code = 82624-9) 120.2 mL/min/1.73m2 CKD-EPI eGFR (2020). Assuming creatinine has been stable day-to-day for at least three months, the eGFR indicates Category G1 (>= 90 mL/min/1.73 m2) Lab Interpretation (test code = 53676-7) [facility] [id number] 15:35:41* Test Item Value Reference Range Interpretation [...] 34.3 g/dL 31.6-35.1 RDW-SD (test code = 07930-3) 41.3 fL 39.0-49.9 RDW-CV (test code = 788-0) 13.2 % 12.0-15.5 PLT (test code = 777-3) 329 166-358 MPV (test code = 60445-5) 9.9 fL 9.5-12.9 NRBC/100 WBC (test code = 7037822651) 0.0 0.0-10.0 NRBC x10^3 (test code = 7347716790) See_Comment [Automated messa ge] The system which generated this result transmitted reference range: 10*3/?L. The reference range was not used to interpret this result as normal/abnormal. GRAN MAT (NEUT) % (test code = 770-8) 66.5 % IMM GRAN % (test code = 6256818537) 0.30 % LYMPH % (test code = 736-9) 26.8 % MONO % (test code = 5905-5) 3.5 % EOS % (test code = 713-8) 2.3 % BASO % (test code = 706-2) 0.6 % GRAN MAT x10^3(ANC) (test code = 9074298032) 5.71 10*3/uL 1.88-7.09 IMM GRAN x10^3 (test code = 9609266768) 0.03 10*3/uL 0.00-0.06 LYMPH x10^3 (test code = 731-0) 2.30 10*3/uL 1.32-3.29 MONO x10^3 (test code = 742-7) 0.30 10*3/uL 0.33-0.92 L EOS x10^3 (test code = 711-2) 0.20 10*3/uL 0.03-0.39 BASO x10^3 (test code = 704-7) 0.05 10*3/uL 0.01-0.07 Lab Interpretation (test code = 50457-8) Abnormal [facility] WITH [id number] 15:35:41* Test Item Value Reference Range Interpretation [...] 34.3 g/dL 31.6-35.1 RDW-SD (test code = 60897-0) 41.3 fL 39.0-49.9 RDW-CV (test code = 788-0) 13.2 % 12.0-15.5 PLT (test code = 777-3) 329 166-358 MPV (test code = 17810-0) 9.9 fL 9.5-12.9 NRBC/100 WBC (test code = 4039167090) 0.0 0.0-10.0 NRBC x10^3 (test code = 1937760935) See_Comment [Automated messa ge] The system which generated this result transmitted reference range: 10*3/?L. The reference range was not used to interpret this result as normal/abnormal. GRAN MAT (NEUT) % (test code = 770-8) 66.5 % IMM GRAN % (test code = 9846148633) 0.30 % LYMPH % (test code = 736-9) 26.8 % MONO % (test code = 5905-5) 3.5 % EOS % (test code = 713-8) 2.3 % BASO % (test code = 706-2) 0.6 % GRAN MAT x10^3(ANC) (test code = 3409918567) 5.71 10*3/uL 1.88-7.09 IMM GRAN x10^3 (test code = 1684554712) 0.03 10*3/uL 0.00-0.06 LYMPH x10^3 (test code = 731-0) 2.30 10*3/uL 1.32-3.29 MONO x10^3 (test code = 742-7) 0.30 10*3/uL 0.33-0.92 L EOS x10^3 (test code = 711-2) 0.20 10*3/uL 0.03-0.39 BASO x10^3 (test code = 704-7) 0.05 10*3/uL 0.01-0.07 Lab Interpretation (test code = 03677-8) Abnormal [facility]. METABOLIC PANEL ([id number])2023-05-19 17:55:27* Test Item Value Reference Range Interpretation Comme nts NA (test code = 3836645488) 138 mmol/L 135-145 K (test code = 9101622572) 3.8 mmol/L 3.5-5.0 CL (test code = 3337990707) 107 mmol/L 98-108 CO2 TOTAL (test code = 1506898579) 21 mmol/L 23-31 L AGAP (test code = 7987913078) 10 2-16 BUN (test code = 0399435326) 8 mg/dL 7-23 GLUCOSE (test code = 1786159386) 89 mg/dL 70-110 CREATININE (test code = 5602228452) 0.69 mg/dL 0.50-1.04 TOTAL BILI (test code = 5548211796) 0.7 mg/dL 0.1-1.1 CALCIUM (test code = 4301843443) 8.3 mg/dL 8.6-10.6 L T PROTEIN (test code = 5896003348) 7.3 g/dL 6.3-8.2 ALBUMIN (test code = 4713445926) 4.1 g/dL 3.5-5.0 ALK PHOS (test code = 6969658121) 107 U/L 34-122 ALTv (test code = 1742-6) 75 U/L 5-35 H AST(SGOT) (test code = 5489830879) 42 U/L 13-40 H eGFR (test code = 96877-6) 121.4 mL/min/1.73m2 CKD-EPI eGFR (2020). Assuming creatinine has been stable day-to-day for at least three months, the eGFR indicates Category G1 (>= 90 mL/min/1.73 m2) Lab Interpretation (test code = 36525-5) [facility] 16:39:24* Test Item Value Reference Range Interpretation Comme nts LIPASE (test code = 4056232687) 40 U/L 0-220 Lab Interpretation (test cod e = 83875-0) [facility] [id number] 16:27:28EXAM: CT ABDOMEN PELVIS W CONTRAST HISTORY: [...] hypodensity isseen within the right gluteal soft tissue.[facility] CBC WITH [id number] 16:14:18* Test Item Value Reference Range Interpretation Comme nts WBC (test code = 6690-2) 6.32 See_Comment [Automated [employer]] The system which generated this result transmitted [...] 34.1 g/dL 31.6-35.1 RDW-SD (test code = 12481-2) 42.0 fL 39.0-49.9 RDW-CV (test code = 788-0) 13.0 % 12.0-15.5 PLT (test code = 777-3) 369 See_Comment H [Automated messa ge] The system which generated this result transmitted reference range: 166 - 358 10*3/?L. The reference range was not used to interpret this result as normal/abnormal. MPV (test code = 78016-3) 9.9 fL 9.5-12.9 NRBC/100 WBC (test code = 9330711186) 0.0 See_Comment [Automated [employer]] The system which generated this result transmitted reference range: 0.0 - 10.0 /100 WBCs. The reference range was not used to interpret this result as normal/abnormal. NRBC x10^3 (test code = 0909829530) See_Comment [Automated messa ge] The system which generated this result transmitted reference range: 10*3/?L. The reference range was not used to interpret this result as normal/abnormal. GRAN MAT (NEUT) % (test code = 770-8) 64.8 % IMM GRAN % (test code = 0218760426) 0.50 % LYMPH % (test code = 736-9) 25.3 % MONO % (test code = 5905-5) 4.1 % EOS % (test code = 713-8) 4.7 % BASO % (test code = 706-2) 0.6 % GRAN MAT x10^3(ANC) (test code = 3193581888) 4.09 10*3/uL 1.88-7.09 IMM GRAN x10^3 (test code = 8785131427) 0.03 10*3/uL 0.00-0.06 LYMPH x10^3 (test code = 731-0) 1.60 10*3/uL 1.32-3.29 MONO x10^3 (test code = 742-7) 0.26 10*3/uL 0.33-0.92 L EOS x10^3 (test code = 711-2) 0.30 10*3/uL 0.03-0.39 BASO x10^3 (test code = 704-7) 0.04 10*3/uL 0.01-0.07 Lab Interpretation (test code = 28815-6) [facility]normal [facility] [id number] 15:31:00* Test Item Value Reference Range Interpretation Comme nts POCT PREG (test code = 1605) Negative On board controls acceptable with C Line (test code = 3574) Yes POCT PREG LOT # (test code = 3575) [id number] POCT PREG TEST DATE ( test code = 3576) 2024-07-21 Lab Interpretation (test cod e = 99342-6) Normal [facility] WITH [id number] 04:28:47* Test Item Value Reference Range Interpretation Comme nts WBC (test code = 6690-2) 5.45 See_Comment [Automated [employer] ge] The system which generated this result transmitted reference range: 4.30 - 11.10 10*3/?L. The reference range was not used to interpret this result as normal/abnormal. RBC (test code = 789-8) 4.59 See_Comment [Automated [employer] ge] The system which generated this result [...] 34.0 g/dL 31.6-35.1 RDW-SD (test code = 44091-8) 40.3 fL 39.0-49.9 RDW-CV (test code = 788-0) 13.1 % 12.0-15.5 PLT (test code = 777-3) 307 See_Comment [Automated messa ge] The system which generated this result transmitted reference range: 166 - 358 10*3/?L. The reference range was not used to interpret this result as normal/abnormal. MPV (test code = 05745-2) 11.0 fL 9.5-12.9 NRBC/100 WBC (test code = 7425725123) 0.0 See_Comment [Automated [employer]] The system which generated this result transmitted reference range: 0.0 - 10.0 /100 WBCs. The reference range was not used to interpret this result as normal/abnormal. NRBC x10^3 (test code = 9378513194) See_Comment [Automated [employer] ge] The system which generated this result transmitted reference range: 10*3/?L. The reference range was not used to interpret this result as normal/abnormal. GRAN MAT (NEUT) % (test code = 770-8) 52.0 % IMM GRAN % (test code = 1438575555) 0.20 % LYMPH % (test code = 736-9) 38.0 % MONO % (test code = 5905-5) 4.6 % EOS % (test code = 713-8) 4.6 % BASO % (test code = 706-2) 0.6 % GRAN MAT x10^3(ANC) (test code = 1770588006) 2.84 10*3/uL 1.88-7.09 IMM GRAN x10^3 (test code = 2078726573) 0.00-0.06 LYMPH x10^3 (test code = 731-0) 2.07 10*3/uL 1.32-3.29 MONO x10^3 (test code = 742-7) 0.25 10*3/uL 0.33-0.92 L EOS x10^3 (test code = 711-2) 0.25 10*3/uL 0.03-0.39 BASO x10^3 (test code = 704-7) 0.03 10*3/uL 0.01-0.07 Lab Interpretation (test code = 84584-5) Abnormal [facility]. METABOLIC PANEL (78763)2023-01-12 04:12:43* Test Item Value Reference Range Interpretation Comme nts NA (test code = 9141039945) 137 mmol/L 135-145 K (test code = 1838682433) 3.4 mmol/L 3.5-5.0 L CL (test code = 5460171525) 104 mmol/L 98-108 CO2 TOTAL (test code = 2561383807) 24 mmol/L 23-31 AGAP (test code = 1307351700) 9 2-16 BUN (test code = 0417633105) 2 mg/dL 7-23 L GLUCOSE (test code = 6462308893) 92 mg/dL 70-110 CREATININE (test code = 0189399991) 0.80 mg/dL 0.50-1.04 TOTAL BILI (test code = 8470179942) 0.4 mg/dL 0.1-1.1 CALCIUM (test code = 6871731582) 8.4 mg/dL 8.6-10.6 L T PROTEIN (test code = 4474668047) 6.3 g/dL 6.3-8.2 ALBUMIN (test code = 8763450174) 3.7 g/dL 3.5-5.0 ALK PHOS (test code = 6089582148) 87 U/L 34-122 ALTv (test code = 1742-6) 27 U/L 5-35 AST(SGOT) (test code = 8648490973) 33 U/L 13-40 eGFR (test code = 8192949863) 86.0 mL/min/1.73m2 WESLEY (test code = WESLEY) [...] imaging tests). Lab Interpretation (test code = 63034-4) Abnormal [facility]. METABOLIC PANEL (11624)2023-01-12 04:12:43* Test Item Value Reference Range Interpretation Comme nts NA (test code = 7562654464) 137 mmol/L 135-145 K (test code = 5808859801) 3.4 mmol/L 3.5-5.0 L CL (test code = 3019967006) 104 mmol/L 98-108 CO2 TOTAL (test code = 6580375307) 24 mmol/L 23-31 AGAP (test code = 5459433042) 9 2-16 BUN (test code = 3535576513) 2 mg/dL 7-23 L GLUCOSE (test code = 2267303897) 92 mg/dL 70-110 CREATININE (test code = 9142837844) 0.80 mg/dL 0.50-1.04 TOTAL BILI (test code = 0408092927) 0.4 mg/dL 0.1-1.1 CALCIUM (test code = 8466299002) 8.4 mg/dL 8.6-10.6 L T PROTEIN (test code = 6927730026) 6.3 g/dL 6.3-8.2 ALBUMIN (test code = 8046969782) 3.7 g/dL 3.5-5.0 ALK PHOS (test code = 6514872702) 87 U/L 34-122 ALTv (test code = 1742-6) 27 U/L 5-35 AST(SGOT) (test code = 7725060105) 33 U/L 13-40 eGFR (test code = 8545021875) 86.0 mL/min/1.73m2 WESLEY (test code = WESLEY) [...] imaging tests). Lab Interpretation (test code = 97000-2) Abnormal [facility] ([facility])2023-01-12 04:07:04 BETA HCG<2.39Non- female and male patients: <5 mIU/mL01/11/2023 11:07 [facility] Gestational Age ?Range (mIU/mL) 1-10 ?Weeks ?03-03202611-42 Weeks ?84891-68717305-09 Weeks ?3075-06788175-75 Weeks ?1531-402177 Biotin has been reported to cause a negative bias, interpret results relative to patient's use of biotin. Gestational Age ?Range (mIU/mL) 1-10 ?Weeks ?86-98061056-44 Weeks ?63223-30403521-87 Weeks ?3214-97192462-75 Weeks?1531-699095 Biotin has been reported to cause a negative bias, interpret results relative to patient's use of biotin. Gestational Age ?Range (mIU/mL) 1-10 ?Weeks ?98-91481412-20 Weeks ?75004-78093544-18 Weeks ?2410-95043882-59 Weeks ?1531-100656 Biotin has been reported to cause a negative bias, interpretresults relative to patient's use of biotin.[facility] (QUANTIT[facility])2023-01-12 04:07:04BETA HCG<2.39Non- female and male patients: <5 mIU/mL01/11/2023 11:07 PM [facility] Gestational Age ?Range (mIU/mL) 1-10 ?Weeks ?22-93907045-37 Weeks ?89722-17504619-92 Weeks ?6367-49972409-45 Weeks ?1531-237071 Biotin has been reported to cause a negative bias, interpret results relative topatient's use of biotin. Gestational Age ?Range (mIU/mL) 1-10 ?Weeks ?29-20048668-16 Weeks ?61411-39940397-20 Weeks ?9098-38598257-87 Weeks?1531-064379 Biotin has been reported to cause a negative bias, interpret results relative to patient's use of biotin. Gestational Age ?Range (mIU/mL) 1-10 ?Weeks ?46-48352037-68 Weeks ?26951-69737478-43 Weeks ?5759-15800779-01 Weeks ?1531-523510 Biotin has been reported to cause a negative bias, interpretresults relative to patient's use of biotin.[facility] 03:22:58* Test Item Value Reference Range Interpretation Comme nts LIPASE (test code = 6470905712) 41 U/L 0-220 Lab Interpretation (test cod e = 04743-3) Normal [facility] 03:22:58* Test Item Value Reference Range Interpretation Comme nts LIPASE (test code = 7113538272) 41 U/L 0-220 Lab Interpretation (test cod e = 51005-1) Normal [facility] [id number] 03:02:00* Test Item Value Reference Range Interpretation Comme nts POCT PREG (test code = 1605) Negative On board controls acceptable with C Line (test code = 3574) Yes POCT PREG LOT # (test code = 3575) [id number] POCT PREG TEST DATE ( test code = 3576) 05/15/2024 Lab Interpretation (test cod e = 45726-5) Normal [facility] [id number] 03:02:00* Test Item Value Reference Range Interpretation Comme nts POCT PREG (test code = 1605) Negative On board controls acceptable with C Line (test code = 3574) Yes POCT PREG LOT # (test code = 3575) [id number] POCT PREG TEST DATE ( test code = 3576) 05/15/2024 Lab Interpretation (test cod e = 72282-3) [facility], [id number] 00:23:34* Test Item Value Reference Range Interpretation Comme nts PREG SERUM (test code = 0339950519) Negative WESLEY (test code = WESLEY) Less than 10 IU/L. ?If low titer or ectopic is suspected, resubmit specimen in 48-72 hours. [facility]. METABOLIC PANEL ([id number])2022-07-31 23:58:12* Test Item Value Reference Range Interpretation Comme nts NA (test code = 1804213364) 140 mmol/L 135-145 K (test code = 4271834863) 3.6 mmol/L 3.5-5.0 CL (test code = 3125014506) 106 mmol/L 98-108 CO2 TOTAL (test code = 9352880042) 21 mmol/L 23-31 L AGAP (test code = 1700577954) 13 2-16 BUN (test code = 9063612501) 8 mg/dL 7-23 GLUCOSE (test code = 9392864353) 90 mg/dL 70-110 CREATININE (test code = 1598059679) 0.90 mg/dL 0.50-1.04 TOTAL BILI (test code = 9436536458) 0.5 mg/dL 0.1-1.1 CALCIUM (test code = 2181614316) 9.0 mg/dL 8.6-10.6 T PROTEIN (test code = 1683651886) 7.8 g/dL 6.3-8.2 ALBUMIN (test code = 4877695949) 4.6 g/dL 3.5-5.0 ALK PHOS (test code = 4097871640) 63 U/L 34-122 ALTv (test code = 1742-6) 23 U/L 5-35 AST(SGOT) (test code = 6713092601) 27 U/L 13-40 eGFR (test code = 8126836145) 75.1 mL/min/1.73m2 WESLEY (test code = WESLEY) [...] imaging tests). Lab Interpretation (test code = 84182-1) [facility] 23:57:32* Test Item Value Reference Range Interpretation Comme nts LIPASE (test code = 2819643113) 55 U/L 0-220 Lab Interpretation (test cod e = 58525-6) [facility] [id number] 23:47:31* Test Item Value Reference Range Interpretation Comme nts WBC (test code = 6690-2) 5.64 See_Comment [Automated [employer]] The system which generated this result transmitted reference range: 4.30 - 11.10 10*3/?L. The reference range was not used to interpret this result as normal/abnormal. RBC (test code = 789-8) 4.51 See_Comment [Automated [employer]] The system which generated this result [...] 32.6 g/dL 31.6-35.1 RDW-SD (test code = 03341-7) 42.5 fL 39.0-49.9 RDW-CV (test code = 788-0) 13.0 % 12.0-15.5 PLT (test code = 777-3) 339 See_Comment [Automated [employer]] The system which generated this result transmitted reference range: 166 - 358 10*3/?L. The reference range was not used to interpret this result as normal/abnormal. MPV (test code = 19442-9) 9.4 fL 9.5-12.9 L NRBC/100 WBC (test code = 6960120548) 0.0 See_Comment [Automated [employer]] The system which generated this result transmitted reference range: 0.0 - 10.0 /100 WBCs. The reference range was not used to interpret this result as normal/abnormal. NRBC x10^3 (test code = 9067697955) See_Comment [Automated [employer]] The system which generated this result transmitted reference range: 10*3/?L. The reference range was not used to interpret this result as normal/abnormal. GRAN MAT (NEUT) % (test code = 770-8) 51.2 % IMM GRAN % (test code = 0371530464) 0.20 % LYMPH % (test code = 736-9) 36.5 % MONO % (test code = 5905-5) 5.7 % EOS % (test code = 713-8) 5.9 % BASO % (test code = 706-2) 0.5 % GRAN MAT x10^3(ANC) (test code = 4038158556) 2.89 10*3/uL 1.88-7.09 IMM GRAN x10^3 (test code = 5585116354) 0.00-0.06 LYMPH x10^3 (test code = 731-0) 2.06 10*3/uL 1.32-3.29 MONO x10^3 (test code = 742-7) 0.32 10*3/uL 0.33-0.92 L EOS x10^3 (test code = 711-2) 0.33 10*3/uL 0.03-0.39 BASO x10^3 (test code = 704-7) 0.03 10*3/uL 0.01-0.07 Lab Interpretation (test code = 15434-9) [facility] [id number] 16:14:38* Test Item Value Reference Range Interpretation Comme nts POCT Molecular Strep (test c ode = 15062-2) Negative Negative Lab Interpretation (test cod e = 82239-4) [facility]OLIC PANEL (37422)2022-05-05 19:35:37* Test Item Value Reference Range Interpretation Comme nts NA (test code = 5404859734) 139 mmol/L 135-145 K (test code = 4418151550) 4.4 mmol/L 3.5-5.0 CL (test code = 1227545166) 104 mmol/L 98-108 CO2 TOTAL (test code = 2941077490) 22 mmol/L 23-31 L AGAP (test code = 8573171015) 2-16 BUN (test code = 8373965200) 11 mg/dL 7-23 GLUCOSE (test code = 0508896363) 95 mg/dL 70-110 CREATININE (test code = 0462675778) 0.71 mg/dL 0.50-1.04 TOTAL BILI (test code = 0762313113) 0.4 mg/dL 0.1-1.1 CALCIUM (test code = 6976828952) 9.1 mg/dL 8.6-10.6 T PROTEIN (test code = 3209263031) 7.9 g/dL 6.3-8.2 ALBUMIN (test code = 5566134889) 4.7 g/dL 3.5-5.0 ALK PHOS (test code = 0452729333) 114 U/L 34-122 ALTv (test code = 1742-6) 21 U/L 5-35 AST(SGOT) (test code = 5387274841) 21 U/L 13-40 eGFR (test code = 6692490751) mL/min/1.73m2 WESLEY (test code = WESLEY) Association [...] imaging tests). Lab Interpretation (test code = 62353-0) Abnormal [facility] WITH [id number] 19:25:37* Test Item Value Reference Range Interpretation Comme nts WBC (test code = 6690-2) See_Comment [Automated [employer]] The system which generated this result transmitted [...] 32.9 g/dL 31.6-35.1 RDW-SD (test code = 39228-7) 41.7 fL 39.0-49.9 RDW-CV (test code = 788-0) 12.7 % 12.0-15.5 PLT (test code = 777-3) See_Comment H [Automated messa ge] The system which generated this result transmitted reference range: 166 - 358 10*3/?L. The reference range was not used to interpret this result as normal/abnormal. MPV (test code = 91758-2) 8.8 fL 9.5-12.9 L NRBC/100 WBC (test code = 1983780630) See_Comment [Automated [employer]] The system which generated this result transmitted reference range: 0.0 - 10.0 /100 WBCs. The reference range was not used to interpret this result as normal/abnormal. NRBC x10^3 (test code = 0218496828) See_Comment [Automated messa ge] The system which generated this result transmitted reference range: 10*3/?L. The reference range was not used to interpret this result as normal/abnormal. GRAN MAT (NEUT) % (test code = 770-8) 56.1 % IMM GRAN % (test code = 3467105838) 0.40 % LYMPH % (test code = 736-9) 29.9 % MONO % (test code = 5905-5) 5.4 % EOS % (test code = 713-8) 7.8 % BASO % (test code = 706-2) 0.4 % GRAN MAT x10^3(ANC) (test code = 9676278626) 3.75 10*3/uL 1.88-7.09 IMM GRAN x10^3 (test code = 8751570523) 0.03 10*3/uL 0.00-0.06 LYMPH x10^3 (test code = 731-0) 2.00 10*3/uL 1.32-3.29 MONO x10^3 (test code = 742-7) 0.36 10*3/uL 0.33-0.92 EOS x10^3 (test code = 711-2) 0.52 10*3/uL 0.03-0.39 H BASO x10^3 (test code = 704-7) 0.03 10*3/uL 0.01-0.07 Lab Interpretation (test code = 76572-7) [id number] Test Item Value Reference Range Interpretation Comme nts POCT PREG (test code = 1605) negative On board controls acceptable with C Line (test code = 3574) present POCT PREG LOT # (test code = 3575) [id number] POCT PREG TEST DATE ( test code = 3576) 08-11-2023 Lab Interpretation (test cod e = 43753-2) Normal [facility] WITH [id number] 15:21:11* Test Item Value Reference Range Interpretation Comme nts WBC (test code = 6690-2) See_Comment [Automated [employer]] The system which generated this result transmitted reference range: 4.30 - 11.10 10*3/?L. The reference range was not used to interpret this result as normal/abnormal. RBC (test code = 789-8) See_Comment [Automated [employer]] The system which generated this result [...] 33.0 g/dL 31.6-35.1 RDW-SD (test code = 10618-8) 42.6 fL 39.0-49.9 RDW-CV (test code = 788-0) 12.9 % 12.0-15.5 PLT (test code = 777-3) See_Comment H [Automated messa ge] The system which generated this result transmitted reference range: 166 - 358 10*3/?L. The reference range was not used to interpret this result as normal/abnormal. MPV (test code = 39222-6) 9.1 fL 9.5-12.9 L NRBC/100 WBC (test code = 5984862030) See_Comment [Automated [employer] ssage] The system which generated this result transmitted reference range: 0.0 - 10.0 /100 WBCs. The reference range was not used to interpret this result as normal/abnormal. NRBC x10^3 (test code = 0792181694) See_Comment [Automated [employer]] The system which generated this result transmitted reference range: 10*3/?L. The reference range was not used to interpret this result as normal/abnormal. GRAN MAT (NEUT) % (test code = 770-8) 56.8 % IMM GRAN % (test code = 5432047828) 0.30 % LYMPH % (test code = 736-9) 29.5 % MONO % (test code = 5905-5) 4.3 % EOS % (test code = 713-8) 8.3 % BASO % (test code = 706-2) 0.8 % GRAN MAT x10^3(ANC) (test code = 4411289749) 3.57 10*3/uL 1.88-7.09 IMM GRAN x10^3 (test code = 8110076002) 0.00-0.06 LYMPH x10^3 (test code = 731-0) 1.85 10*3/uL 1.32-3.29 MONO x10^3 (test code = 742-7) 0.27 10*3/uL 0.33-0.92 L EOS x10^3 (test code = 711-2) 0.52 10*3/uL 0.03-0.39 H BASO x10^3 (test code = 704-7) 0.05 10*3/uL 0.01-0.07 Lab Interpretation (test code = 05953-8) Abnormal [facility] METABOLIC PANEL (29198)2022-04-26 15:12:13* Test Item Value Reference Range Interpretation Comme nts NA (test code = 3833960227) 141 mmol/L 135-145 K (test code = 8410512862) 3.4 mmol/L 3.5-5.0 L CL (test code = 7941820404) 104 mmol/L 98-108 CO2 TOTAL (test code = 5095739071) 23 mmol/L 23-31 AGAP (test code = 0922541607) 2-16 BUN (test code = 4371242577) 9 mg/dL 7-23 GLUCOSE (test code = 1147457029) 101 mg/dL 70-110 CREATININE (test code = 9881032980) 0.82 mg/dL 0.50-1.04 TOTAL BILI (test code = 7488111906) 0.7 mg/dL 0.1-1.1 CALCIUM (test code = 3784042569) 9.3 mg/dL 8.6-10.6 T PROTEIN (test code = 8461208138) 8.1 g/dL 6.3-8.2 ALBUMIN (test code = 4693901345) 4.7 g/dL 3.5-5.0 ALK PHOS (test code = 5790089613) 108 U/L 34-122 ALTv (test code = 1742-6) 24 U/L 5-35 AST(SGOT) (test code = 3345727904) 49 U/L 13-40 H eGFR (test code = 3172893140) mL/min/1.73m2 WESLEY (test code = WESLEY) Association [...] imaging tests). Lab Interpretation (test code = 80167-6) Abnormal [facility] [id number] 14:45:00* Test Item Value Reference Range Interpretation Comme [facility] POCT PREG (test code = 1605) negative On board controls acceptable with C Line (test code = 3574) present POCT PREG LOT # (test code = 3575) [id number] POCT PREG TEST DATE ( test code = 357) 08/11/2023 Lab Interpretation (test cod e = 10903-8) Normal [facility] [id number] 01:22:00* Test Item Value Reference Range Interpretation Comme [facility] POCT PREG (test code = 1605) Negative On board controls acceptable with C Line (test code = 3574) Present POCT PREG LOT # (test code = 3575) [id number] POCT PREG TEST DATE ( test code = 357) 08-11-2023 Lab Interpretation (test cod e = 73121-1) Normal [facility] METABOLIC PANEL (NA, K, CL, CO2, GLUCOSE, BUN, CREATININE, CA)2022-04-07 23:01:10* Test Item Value Reference Range Interpretation Comme nts NA (test code = 2152659394) 138 mmol/L 135-145 K (test code = 7647349526) 4.3 mmol/L 3.5-5.0 CL (test code = 3461549224) 107 mmol/L 98-108 CO2 TOTAL (test code = 8336678052) 20 mmol/L 23-31 L AGAP (test code = 0796835146) 2-16 BUN (test code = 4490358989) 9 mg/dL 7-23 GLUCOSE (test code = 5738384426) 204 mg/dL 70-110 H CREATININE (test code = 6097126954) 0.74 mg/dL 0.50-1.04 CALCIUM (test code = 9560728528) 9.1 mg/dL 8.6-10.6 eGFR (test code = 5520546804) mL/min/1.73m2 WESLEY (test code = WESLEY) Association [...] imaging tests). Lab Interpretation (test code = 91736-6) Abnormal [facility] WITH [id number] 22:57:34* Test Item Value Reference Range Interpretation Comme nts WBC (test code = 6690-2) See_Comment [Automated [employer] ge] The system which generated this result transmitted reference range: 4.30 - 11.10 10*3/?L. The reference range was not used to interpret this result as normal/abnormal. RBC (test code = 789-8) See_Comment [Automated [employer] ge] The system which generated this result [...] 33.5 g/dL 31.6-35.1 RDW-SD (test code = 18989-3) 42.9 fL 39.0-49.9 RDW-CV (test code = 788-0) 13.4 % 12.0-15.5 PLT (test code = 777-3) See_Comment H [Automated Chao[employer]IFIa ge] The system which generated this result transmitted reference range: 166 - 358 10*3/?L. The reference range was not used to interpret this result as normal/abnormal. MPV (test code = 78051-0) 8.9 fL 9.5-12.9 L NRBC/100 WBC (test code = 2300921324) See_Comment [Automated [employer] ssage] The system which generated this result transmitted reference range: 0.0 - 10.0 /100 WBCs. The reference range was not used to interpret this result as normal/abnormal. NRBC x10^3 (test code = 1303628183) See_Comment [Automated messa ge] The system which generated this result transmitted reference range: 10*3/?L. The reference range was not used to interpret this result as normal/abnormal. GRAN MAT (NEUT) % (test code = 770-8) 88.7 % IMM GRAN % (test code = 2422407838) 0.70 % LYMPH % (test code = 736-9) 9.4 % MONO % (test code = 5905-5) 0.9 % EOS % (test code = 713-8) 0.1 % BASO % (test code = 706-2) 0.2 % GRAN MAT x10^3(ANC) (test code = 2233298095) 7.81 10*3/uL 1.88-7.09 H IMM GRAN x10^3 (test code = 9737773568) 0.06 10*3/uL 0.00-0.06 LYMPH x10^3 (test code = 731-0) 0.83 10*3/uL 1.32-3.29 L MONO x10^3 (test code = 742-7) 0.08 10*3/uL 0.33-0.92 L EOS x10^3 (test code = 711-2) 0.03-0.39 L BASO x10^3 (test code = 704-7) 0.01-0.07 Lab Interpretation (test code = 26580-2) Abnormal [facility] [id number] 14:07:00* Test Item Value Reference Range Interpretation Comme nts POCT PREG (test code = 1605) negative On board controls acceptable with C Line (test code = 3574) present POCT PREG LOT # (test code = 3575) [id number] POCT PREG TEST DATE ( test code = 3576) 08/11/2023 Lab Interpretation (test cod e = 31598-2) Normal [facility] [id number] 13:52:00* Test Item Value Reference Range Interpretation Comme nts POCT PREG (test code = 1605) negative On board controls acceptable with C Line (test code = 3574) present Lab Interpretation (test cod e = 58486-6) Normal [facility] [id number] 14:59:00* Test Item Value Reference Range Interpretation Comme nts POCT PREG (test code = 1605) negative On board controls acceptable with C Line (test code = 3574) yes POCT PREG LOT # (test code = 3575) [id number] POCT PREG TEST DATE ( test code = 3576) 07/11/2023 Lab Interpretation (test cod e = 94743-0) [facility] MET[facility]OLIC PANEL (23745)2022 17:51:43* Test Item Value Reference Range Interpretation Comme nts NA (test code = 3107464311) 139 mmol/L 135-145 K (test code = 7692234444) 4.1 mmol/L 3.5-5 CL (test code = 3310137508) 104 mmol/L 98-108 CO2 TOTAL (test code = 2807408812) 22 mmol/L 23-31 L AGAP (test code = 0823208775) 2-16 BUN (test code = 1002784057) 7 mg/dL 7-23 GLUCOSE (test code = 9503675034) 114 mg/dL 70-110 H CREATININE (test code = 9049720532) 0.69 mg/dL 0.5-1.04 TOTAL BILI (test code = 1509008361) 0.4 mg/dL 0.1-1.1 CALCIUM (test code = 2831935875) 9.7 mg/dL 8.6-10.6 T PROTEIN (test code = 7835716236) 7.2 g/dL 6.3-8.2 ALBUMIN (test code = 3139305364) 4.6 g/dL 3.5-5 ALK PHOS (test code = 1493942381) 65 U/L 34-122 ALTv (test code = 1742-6) 15 U/L 5-35 AST(SGOT) (test code = 1644051683) 19 U/L 13-40 eGFR (test code = 1387440821) mL/min/1.73m2 WESLEY (test code = WESLEY) Association [...] imaging tests). Lab Interpretation (test code = 43734-5) Abnormal [facility] WITH [id number] 17:40:24* Test Item Value Reference Range Interpretation Comme nts WBC (test code = 6690-2) See_Comment [[employer] Live] The system which generated this result transmitted reference range: 4.30 - 11.10 10*3/?L. The reference range was not used to interpret this result as normal/abnormal. RBC (test code = 789-8) See_Comment [[employer]] The system which generated this result transmitted [...] 33.3 g/dL 31.6-35.1 RDW-SD (test code = 39368-7) 43.1 fL 39-49.9 RDW-CV (test code = 788-0) 13.2 % 12-15.5 PLT (test code = 777-3) See_Comment [Automated Ch[employer]a ge] The system which generated this result transmitted reference range: 166 - 358 10*3/?L. The reference range was not used to interpret this result as normal/abnormal. MPV (test code = 76415-4) 9.5 fL 9.5-12.9 NRBC/100 WBC (test code = 7217264504) See_Comment [Automated [employer] ssage] The system which generated this result transmitted reference range: 0.0 - 10.0 /100 WBCs. The reference range was not used to interpret this result as normal/abnormal. NRBC x10^3 (test code = 2693873786) See_Comment [Automated [employer] ge] The system which generated this result transmitted reference range: 10*3/?L. The reference range was not used to interpret this result as normal/abnormal. GRAN MAT (NEUT) % (test code = 770-8) 57.8 % IMM GRAN % (test code = 5493726508) 0.20 % LYMPH % (test code = 736-9) 30.8 % MONO % (test code = 5905-5) 5.1 % EOS % (test code = 713-8) 5.6 % BASO % (test code = 706-2) 0.5 % GRAN MAT x10^3(ANC) (test code = 1610572103) 3.61 10*3/uL 1.88-7.09 IMM GRAN x10^3 (test code = 9269053914) 0-0.06 LYMPH x10^3 (test code = 731-0) 1.92 10*3/uL 1.32-3.29 MONO x10^3 (test code = 742-7) 0.32 10*3/uL 0.33-0.92 L EOS x10^3 (test code = 711-2) 0.35 10*3/uL 0.03-0.39 BASO x10^3 (test code = 704-7) 0.03 10*3/uL 0.01-0.07 Lab Interpretation (test code = 11508-7) Abnormal [facility] [id number] 17:27:00* Test Item Value Reference Range Interpretation Comme nts POCT PREG (test code = 1605) negative On board controls acceptable with C Line (test code = 3574) present POCT PREG LOT # (test code = 3575) [id number] POCT PREG TEST DATE ( test code = 357) Lab Interpretation (test cod e = 05677-2) [facility] 12:45:21* Test Item Value Reference Range Interpretation Comme nts LIPASE (test code = 1298143343) 41 U/L 0-220 Lab Interpretation (test cod e = 28298-3) Normal [facility] [id number] 10:57:00* Test Item Value Reference Range Interpretation Comme nts POCT PREG (test code = 1605) Negative On board controls acceptable with C Line (test code = 3574) Present POCT PREG LOT # (test code = 3575) [id number] POCT PREG TEST DATE ( test code = 357) 03/12/2023 Lab Interpretation (test cod e = 08899-4) [facility] (NA, K, CL, CO2, GLUCOSE, BUN, CREATININE, CA)2022-01-18 10:56:51* Test Item Value Reference Range Interpretation Comme nts NA (test code = 7386478651) 137 mmol/L 135-145 K (test code = 6824008269) 4.6 mmol/L 3.5-5 Slight hemolysis CL (test code = 2164924618) 108 mmol/L 98-108 CO2 TOTAL (test code = 7460187634) 22 mmol/L 23-31 L AGAP (test code = 5445857426) 2-16 BUN (test code = 5557866549) 11 mg/dL 7-23 Slight hemolysis GLUCOSE (test code = 2392699776) 83 mg/dL 70-110 CREATININE (test code = 8771946985) 0.68 mg/dL 0.5-1.04 CALCIUM (test code = 7313911747) 8.8 mg/dL 8.6-10.6 eGFR (test code = 6559963121) mL/min/1.73m2 WESLEY (test code = WESLEY) Association [...] imaging tests). Lab Interpretation (test code = 25160-1) Abnormal [facility] (19933) (ALB,T.PRO,BILI T,BU/BC,ALT,AST,ALK PHOS)2022-01-18 10:56:51* Test Item Value Reference Range Interpretation Comme nts TOTAL BILI (test code = 5686786070) 0.6 mg/dL 0.1-1.1 BILI UNCON (test code = 5058382052) 0.1 mg/dL 0.1-1.1 BILI CONJ (test code = 2079686277) 0.0 mg/dL 0-0.3 T PROTEIN (test code = 9068966550) 8.6 g/dL 6.3-8.2 H ALBUMIN (test code = 5355122992) 5.1 g/dL 3.5-5 H ALK PHOS (test code = 0926225829) 79 U/L 34-122 ALTv (test code = 1742-6) 117 U/L 5-35 H AST(SGOT) (test code = 7046059898) 163 U/L 13-40 H Lab Interpretation (test cod e = 92899-6) Abnormal [facility], [id number] 10:54:25* Test Item Value Reference Range Interpretation Comme nts PREG SERUM (test code = 9853369141) Negative WESLEY (test code = WESLEY) Less than 10 IU/L. ?If low titer or ectopic is suspected, resubmit specimen in 48-72 hours. [facility] WITH [id number] 10:40:49* Test Item Value Reference Range Interpretation Comme nts WBC (test code = 6690-2) See_Comment [Automated [employer]] The system which generated this result transmitted reference range: 4.30 - 11.10 10*3/?L. The reference range was not used to interpret this result as normal/abnormal. RBC (test code = 789-8) See_Comment [Automated [employer] ge] The system which generated this result [...] 33.6 g/dL 31.6-35.1 RDW-SD (test code = 76962-2) 45.3 fL 39-49.9 RDW-CV (test code = 788-0) 14.5 % 12-15.5 PLT (test code = 777-3) See_Comment [Automated messa ge] The system which generated this result transmitted reference range: 166 - 358 10*3/?L. The reference range was not used to interpret this result as normal/abnormal. MPV (test code = 78752-3) 9.5 fL 9.5-12.9 NRBC/100 WBC (test code = 3607164228) See_Comment [Automated [employer] ssage] The system which generated this result transmitted reference range: 0.0 - 10.0 /100 WBCs. The reference range was not used to interpret this result as normal/abnormal. NRBC x10^3 (test code = 5836686396) See_Comment [Automated messa ge] The system which generated this result transmitted reference range: 10*3/?L. The reference range was not used to interpret this result as normal/abnormal. GRAN MAT (NEUT) % (test code = 770-8) 47.6 % IMM GRAN % (test code = 3341360491) 0.60 % LYMPH % (test code = 736-9) 39.9 % MONO % (test code = 5905-5) 5.9 % EOS % (test code = 713-8) 5.3 % BASO % (test code = 706-2) 0.7 % GRAN MAT x10^3(ANC) (test code = 3788940310) 4.45 10*3/uL 1.88-7.09 IMM GRAN x10^3 (test code = 1060575584) 0.06 10*3/uL 0-0.06 LYMPH x10^3 (test code = 731-0) 3.74 10*3/uL 1.32-3.29 H MONO x10^3 (test code = 742-7) 0.55 10*3/uL 0.33-0.92 EOS x10^3 (test code = 711-2) 0.50 10*3/uL 0.03-0.39 H BASO x10^3 (test code = 704-7) 0.07 10*3/uL 0.01-0.07 Lab Interpretation (test code = 35898-0) Abnormal [facility] [id number] 18:31:00* Test Item Value Reference Range Interpretation Comme nts POCT PREG (test code = 1605) Negative On board controls acceptable with C Line (test code = 3574) Yes POCT PREG LOT # (test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 OR [...] SPERM <1 <=1 HPF COMP. METABOLIC PANEL (56016) - Abnormal NA 138 135 - 145 [...] DIFF URINALYSIS POCT TEST COMP. METABOLIC PANEL (54899) LIPASE Orders Placed This Encounter Medications ondansetron [...] Observation Condition -- Comment Treatment Team: KORI [[id number]] Discharge Medications: Patient's Medications START taking these [...] vomiting Plan 1. Readmit to medicine team [facility] 2024-03-03 11:17:18 Noted path with H pylori [...] Vance MD PGY 5 Gastroenterology and Hepatology [facility] 2024-02-28 09:07:48 TRANSITIONAL CARE MANAGEMENT ASSESSMENT 02/28/2024 Natanael Dyosn [id number] Natanael Dyson is a 29 year old /White female was admitted on 02/22/[address] She was discharged on 02/27/24 with discharge disposition of HR- Routine Discharge. Admitting Physician: Hany Lee Discharge Diagnosis: FINAL DIAGNOSIS: (the reason, after study, for admitting the patient to the hospital) Esophagitis Gastritis Linked Episodes Type: Episode: Status: Noted: Resolved: Last update: Updated by: TRANSITION OF CARE TCM Active 02/27/2024 02/28/2024 9:07 AM Tc Renteria RN Comments: TCM Gjh-neuu-sh-face outreach documentation: Discharge Assessment Chart Assessed: 02/28/24 [...] with the names or descriptions of any klfi-kfg-iywnanf or supplements you are currently taking?: Yes [...] Phone 03/10/2024 10:00 AM Ca Martinez FNP [facility] [phone] I Renteria RN [facility] 2024-02-27 15:43:07 Addendum created 02/27/24 1543 by Blanca Leavitt CRNA Intraprocedure Meds edited NACR-NURSE CLASSROOM INSTRUCTOR,CERTIFIED REGISTERED NURSE CLASSROOM INSTRUCTOR [facility] 2024-02-27 12:01:14 Patient: Natanael Dyson Procedure Summary Date: 02/27/24 Room / Location: [id number] / ENDOSCOPY (CS) OR LOCATION Anesthesia Start: [...] status: acceptable Hydration status: acceptable AN-ANESTHESIOLOGY ANESTHESIOLOGIST [facility] 2024-02-27 07:19:18 Problem: Pain Goal: Control of [...] Outcome: Progressing as expected Sheyla Sharma RN [facility] 2024-02-27 06:29:41 Name/ MRN / Age / Gender: Natanael Dyson, [id number] 29 year old female BMI: Estimated body [...] (physical exam) Anesthesia Preop: Chart Review and Fnmh-uu-Eiyg NPO Status Verified Clear Liquids: > 2 [...] Endocrine/other ROS Negative per Chart Review Other AUDIO VIDEO TECH AUDIO VIDEO TECH ROS Negative per Chart Review Comments: H/o breast cancer Pediatric Pediatric N/A N/A Preoperative Medication Instructions Continue taking all prescribed medications except: LUIS inhibitors, ARBs, diuretics, all oral diabetes medications Anticoagulant Therapy: Defer to surgeons Insulin: Take 1/2 dose the night prior to surgery. Hold on DOS. Phentermine: Alert [facility] anesthesiologist SGLT2 Inhibitors: "gliflozins" to be [...] N/A 07/21/2019 Surgeon: Prasanna Vargas MD; Location: [facility] Labor and Delivery OR Location TUBAL LIGATION N/A 07/21/2019 Surgeon: Prasanna Vargas MD; Location: [facility] Labor and Delivery OR [...] mask Anesthesia plan discussed with: patient or technical service representative Post-Operative Analgesia: routine analgesia & antiemetics Recovery Plan: PACU Additional comments: Pt seen and examined. Chart/ interval hx/ lab data reviewed. NPO status confirmed. Anesthetic plan d/w pt and she understands/ wishes to proceed. Consent obtained. [facility] 2024-02-27 06:15:00 Rec'd report from sheyla CURRIE. Pt AAO, RA, no ISO,denies overnight vomiting, rec'd enema about 0500 and have since been having BMs per RN. Bobbi Du RN [facility] 2024-02-26 13:07:55 Problem: Falls, Risk of Goal: [...] Not progressing as expected Tete Louis RN [facility] 2024-02-25 23:57:35 Problem: Pain Goal: Control of [...] nutritional intake Outcome: Progressing as expected Cheryl Vásuqez RN [facility] 2024-02-25 07:09:28 Problem: Pain Goal: Control of [...] Adequate nutritional intake Outcome: Progressing as expected [facility] 2024-02-24 09:16:21 Uploaded to OnBase: [facility] ED Labs &CT Report Bobbi Jackson lll, PCP 02/24/2024 9:17 am T Bobbi Saini [facility] 2024-02-24 03:16:43 Problem: Pain Goal: Control of pain at or below patient's documented comfort goal Outcome: Progressing as expected Problem: Falls, Risk of Goal: Absence of falls Outcome: Progressing as expected Problem: Infection Risk Goal: Absence of infection Outcome: Progressing as expected Problem: Discharge Planning Goal: Adequate for discharge Outcome: Progressing as expected [facility] 2024-02-23 19:02:34 Problem: Pain Goal: Control of [...] Progressing as expected T Sheldon Montague RN [facility] 2024-02-22 22:09:02 Problem: Pain Goal: Control of [...] Adequate nutritional intake Outcome: Progressing as expected [facility] 2024-02-22 19:25:41 Pt to [place] [id number] at this time via [facility] transport in stretcher. Patient in possession of all belongings. VSS, Respirations even and unlabored, AAOx4, NAD noted. T Dennise Kirkland RN [facility] 2024-02-22 19:09:18 Patient requesting medication for anxiety. Team paged at this time. [facility] 2024-02-22 19:00:00 Report received from Brent CURRIE. Previous treatment and plan of care discussed. Patient resting in bed. Bed locked and in lowest position. Call light within reach. RR even and unlabored. VSS. A&Ox4. NAD noted. Awaiting transport upstairs. [facility] 2024-02-22 18:32:24 Report given to RN. Patient to be admitted to [facility]. Patient verbalized understanding of plan of care. Patient A&O x4. VSS. NAD noted. Resp even and non labored. Skin warm and dry. IV patent. Belongings to be sent with patient. Awaiting transportation. [facility] Brent Solis RN [facility] 2024-02-22 17:45:00 Pt ambulatory to and from restroom with steady gait in NAD [facility] 2024-02-22 15:45:00 Pt laying in bed meds given per MAR waiting on bed place ment, pt A&Ox4 resp even and unlabored gcs 15 [facility] 2024-02-22 13:45:00 Pt resting comfortably, skin normal warm and dry, resp even and unlabored. VSS. Bed in lowest, locked position, side rails up. Call light within reach. Awaiting results. [facility] 2024-02-22 11:45:00 Pt sitting in bed A&Ox4 , skin normal warm and dry, resp even and unlabored. VSS. Bed in lowest, locked position, side rails up. Call light within reach. Awaiting results. [facility] 2024-02-22 09:45:00 Natanael Dyson is a 29 [...] will continue to monitor. Awaiting further orders. [facility] 2024-02-22 09:31:00 Natanael Dyson is a 29 year old female c/o brayan umbical pain x 1 week. Pain worsening x 4 days. Seen at hospital in [place]. Reports no relief with zofran. Also reports vomiting/diarrhea. Reports blood in stool and emesis. No fever. Denies urinary. Denies . Alla Richardson RN [facility] 2024-02-22 09:27:00 [facility] Emergency Department Note Patient Name: Natanael Dyson Date of : 1995 29 year old female Treatment Room: Room/bed info not found Primary Care Physician: PATIENT DOES NOT HAVE A PCP Patient Escorted by: Self [9] Mode of Arrival: Personal means [1] EMS Treatment Prior to ED Arrival: TRAFFIC SERGEANT treatment: None Travel and Exposure Screening: Symptoms [...] days ago she presented for evaluation in [place]; she was told that she was dehydrated and would have to see a fence post driver; however, she says that she cannot afford this. History provided by: Patient health underwriter used: No Past Medical History/Immunizations: Past Medical [...] N/A 07/21/2019 Surgeon: Prasanna Vargas MD; Location: [facility] Labor and Delivery OR Location TUBAL LIGATION N/A 07/21/2019 Surgeon: Prasanna Vargas MD; Location: [facility] Labor and Delivery OR [...] 0.01 - 0.07 10*3/uL COMP. METABOLIC PANEL (93892) - Abnormal NA 137 135 - 145 [...] LIMITED CBC WITH DIFF COMP. METABOLIC PANEL (16251) LIPASE URINALYSIS TROPONIN I TEST, SERUM O2 [...] Observation Condition -- Comment Treatment Team: KORI [[id number]] Discharge Medications: Patient's Medications START taking these medications No medications on file CONTINUE taking these medications which have NOT CHANGED ALBUTEROL 90 MCG/ACTUATION INHALER Inhale 2 Puffs every 6 (six) hours as needed for Wheezing or Shortness of Breath. BACLOFEN 10 MG TABLET Take 1 tablet by mouth every 6 (six) hours as needed. [id number] (FIORICET) 50-300-40 MG PER CAPSULE Take 1 [...] by: Adriana Piedra MD Internal Medicine PGY-3 [place] Team Adriana Piedra MD 02/22/24 1425 Associated [...] to Internal Medicine Janett Warren INTERNAL MEDICINE [facility] 2023-08-27 16:08:07 TRANSITIONAL CARE MANAGEMENT ASSESSMENT 08/27/2023 Natanael Dyson [id number] Natanael Dyson is a 28 year old /White female was admitted on 08/23/[address] She was discharged on 08/24/23 with discharge disposition of HR- Routine Discharge. Admitting Physician: Roldan Walker Discharge Diagnosis: Cerebrovascular accident (CVA), unspecified mechanism [ Pt. Voiced her thoughts about [facility], not pleased with care provided. Plans to not f/u with [facility]. Pt. Inquired about results MY chart issue due to pt. Came in the hospital not alert. Instructed via the AVS it is under the other name Dominick Adamson 08/23/2023 - 08/24/2023 Neurology/Neurological Surgery (EDILIA 11B). Pt. Access via the AVS page 4 there. Pt. Has gone under this chart aKris with no results found. Gave HIM contact number for further assistance. No linked episodes TCM Tqt-iynt-wi-face outreach documentation: Discharge Assessment Chart Assessed: 08/27/23 [...] MRI 1 (1.5T) [facility], [facility] [phone] Marlys Odell LVN [facility] 2023-08-26 13:35:01 TRANSITIONAL CARE MANAGEMENT ASSESSMENT 08/26/2023 Natanael Dyson [id number] Natanael Dyson is a 28 year old /White female was admitted on 08/23/23 to [facility], [facility] 11B. She was discharged on 08/24/23 with discharge disposition of HR- Routine Discharge. Admitting Physician: Roldan Walker Discharge Diagnosis: Cerebrovascular accident (CVA), unspecified mechanism [I63.9] No contact. No linked episodes TCM Ejm-fyam-ld-face outreach documentation: Future Appointments: [facility] 2023-05-19 12:16:00 Pt given printed and verbal [...] steady gait, in no apparent distress. NNE [facility] 2023-05-19 08:50:00 Patient came in with complaints of epigastric pain that radiates to her left shoulder associated with nausea and vomiting since a couple of weeks now. Patient states that she was worked up in [place] ER 2 weeks ago and found nothing wrong, just referred to a GI doctor but she hasn't seen one because she has no insurance. NNE Ruiz RN [facility] 2023-01-16 10:56:45 TRANSITIONAL CARE MANAGEMENT ASSESSMENT 01/16/2023 Natanael Dyson [id number] Natanael Dyson is a 27 year old /White female was admitted on 01/11/[address] She was discharged on 01/15/23 with discharge disposition of HR- Routine Discharge. Admitting Physician: Kun Steele Discharge Diagnosis: Postprocedural intraabdominal abscess [T81.43XA] Pt. Verbalized understanding discharge instructions. Plans to f/u with pcp. Linked Episodes Type: Episode: Status: Noted: Resolved: Last update: Updated by: TRANSITION OF CARE tcm Active 01/16/2023 01/16/2023 10:56 AM Marlys Odell LVN Comments: TCM Lno-cney-zx-face outreach documentation: Discharge Assessment Chart Assessed: 01/16/23 [...] with the names or descriptions of any dmpj-xhf-excbevt or supplements you are currently taking?: Yes [...] time?: No Future Appointments: Marlys Odell LVN [facility] 2023-01-15 18:18:34 Patient is cleared for discharge. [...] Crews RN Outcome: Progressing as expected T [facility] 2023-01-15 15:08:00 Called outpatient pharmacy and spoke to Maggi. Stated pharmacy will bring patient's medications to her room within 45min to an hour. T Vero Crews RN [facility] 2023-01-15 13:11:00 Problem: Infection Risk Goal: Absence of infection Outcome: Progressing as expected Problem: Pain Goal: Control of pain at or below patient's documented comfort goal Outcome: Progressing as expected Goal: Reduction in pain sensation Outcome: Progressing as expected Problem: Discharge Planning Goal: Adequate for discharge Outcome: Progressing as expected Goal: Effective communication Outcome: Progressing as expected T [facility] 2023-01-15 06:25:22 Problem: Infection Risk Goal: Absence of infection Outcome: Progressing as expected Problem: Pain Goal: Control of pain at or below patient's documented comfort goal Outcome: Progressing as expected Goal: Reduction in pain sensation Outcome: Progressing as expected Problem: Discharge Planning Goal: Adequate for discharge Outcome: Progressing as expected Goal: Effective communication Outcome: Progressing as expected Katy Means RN [facility] 2023-01-14 09:27:52 Problem: Infection Risk Goal: Absence of infection Outcome: Progressing as expected Problem: Pain Goal: Control of pain at or below patient's documented comfort goal Outcome: Progressing as expected Goal: Reduction in pain sensation Outcome: Progressing as expected Problem: Discharge Planning Goal: Adequate for discharge Outcome: Progressing as expected Goal: Effective communication Outcome: Progressing as expected T Charles Win RN [facility] 2023-01-13 22:20:47 Notified MD by page due to double dose of Tylenol being given. Per MD Brito no more Tylenol to be given for tonight. [facility] 2023-01-13 21:55:20 Problem: Infection Risk Goal: Absence of infection Outcome: Progressing as expected Problem: Pain Goal: Control of pain at or below patient's documented comfort goal Outcome: Progressing as expected Goal: Reduction in pain sensation Outcome: Progressing as expected Problem: Discharge Planning Goal: Adequate for discharge Outcome: Progressing as expected Goal: Effective communication Outcome: Progressing as expected [facility] 2023-01-13 08:20:43 Problem: Infection Risk Goal: Absence of infection Outcome: Progressing as expected Problem: Pain Goal: Control of pain at or below patient's documented comfort goal Outcome: Progressing as expected Goal: Reduction in pain sensation Outcome: Progressing as expected Problem: Discharge Planning Goal: Adequate for discharge Outcome: Progressing as expected Goal: Effective communication Outcome: Progressing as expected [facility] 2023-01-12 20:10:08 Problem: Infection Risk Goal: Absence of infection Outcome: Progressing as expected Problem: Pain Goal: Control of pain at or below patient's documented comfort goal Outcome: Progressing as expected Goal: Reduction in pain sensation Outcome: Progressing as expected Problem: Discharge Planning Goal: Adequate for discharge Outcome: Progressing as expected Goal: Effective communication Outcome: Progressing as expected [facility] 2023-01-12 09:28:38 Problem: Infection Risk Goal: Absence of infection Outcome: Progressing as expected Problem: Pain Goal: Control of pain at or below patient's documented comfort goal Outcome: Progressing as expected Goal: Reduction in pain sensation Outcome: Progressing as expected Problem: Discharge Planning Goal: Adequate for discharge Outcome: Progressing as expected Goal: Effective communication Outcome: Progressing as expected [facility] 2023-01-12 05:17:00 Problem: Infection Risk Goal: Absence of infection Outcome: Progressing as expected Problem: Pain Goal: Control of pain at or below patient's documented comfort goal Outcome: Progressing as expected Goal: Reduction in pain sensation Outcome: Progressing as expected Problem: Discharge Planning Goal: Adequate for discharge Outcome: Progressing as expected Goal: Effective communication Outcome: Progressing as expected [facility] 2023-01-12 01:43:06 Report to lisy CURRIE on 9C. Pt awaiting transport [facility] Melvin Villegas RN [facility] 2023-01-12 01:10:30 Attempted report, nurse unavailable, left callback number [facility] 2023-01-12 00:24:49 Surgery at bedside [facility] 2023-01-11 23:08:11 made aware of pt increased pain and nausea [facility] 2023-01-11 22:34:[address], warm blanket given [facility] 2023-01-11 22:18:[address] scan [facility] 2023-01-11 21:30:08 Natanael Dyson is a 27 [...] liver. Denies vomiting, denies blood in stool. [facility] 2023-01-11 21:03:38 Natanael Dyson is a 27 year old female here today c/o abdominal pain x 2 days. Pt denies N/V but reports diarrhea. Pt reports "9/10" pain at this time. Pt reports pain travels down right side abdomen. Pt is A&Ox4, NAD Noted. RR even/unlabored. [facility] [employer] 2023-01-11 20:44:00 [facility] Emergency Department Note Patient Name: Natanael Dyson Date of : 1995 27 year old female Treatment Room: 112/[facility] Primary Care Physician: Luke Baker Patient Escorted by: Family [5] Mode of Arrival: Personal means [1] EMS Treatment Prior to ED Arrival: TRAFFIC SERGEANT treatment: None Travel and Exposure Screening: Symptoms [...] 1 month ago that was done at [place]. Due to the worsening discomfort patient has, [...] when she sits up. Patient has discontinued Warren and anxiety medication due to concern for her liver. She is only used a heating pad for her symptoms with minimal improvement. History provided by: Patient health underwriter used: No Past Medical History/Immunizations: Past Medical [...] N/A 07/21/2019 Surgeon: Prasanna Vargas MD; Location: [facility] Labor and Delivery OR Location TUBAL LIGATION N/A 07/21/2019 Surgeon: Prasanna Vargas MD; Location: [facility] Labor and Delivery OR [...] 0 - 220 U/L COMP. METABOLIC PANEL (26866) TOTAL BETA HCG ASSAY EXTRA TUBE ORANGE EXTRA TUBE LAV EKG: If EKG completed, see Procedure Note. Orders and Treatments: Orders Placed This Encounter Procedures CT ABDOMEN PELVIS W CONTRAST POCT TEST URINALYSIS LIPASE COMP. METABOLIC PANEL (90865) TOTAL BHCG (QUANTITATIVE) Orders Placed This Encounter [...] mouth every 6 (six) hours as needed. [id number]-[id number] (FIORICET) 50-300-40 MG PER CAPSULE Take 1 [...] in the Gallbladder fossa, post-recent cholecystectomy in [place]. General surgery was consulted and admitted the patient for further workup and management. [facility] 2022-12-03 08:57:03 Patient has an appointment 12/12/22. Blayne Silva RN 12/03/2022 8:57 AM Blayne Silva RN [facility]
--- NOTE | 2024-12-17 19:31 | ER ---
Nurse's Notes [facility] Name: Natanael Dyson Age: 29 yrs Sex: Female : 1995 Arrival Date: 12/17/2024 Time: 18:21 Bed Waiting Private MD: Diagnosis: Presentation: 12/17 19:07 Chief complaint: Called from lobby.. No answer. me1 19:14 Chief complaint: Called from lobby. No answer. me1 19:23 Chief complaint: Called from lobby. No answer. me1 ED Course: 18:23 Patient arrived in ED. im 18:29 Destin Davis NP is PHCP. pm1 18:29 Paula Mark MD is Attending Physician. pm1 Administered Medications: No medications were administered Outcome: 19:30 Eloped from waiting room, before seeing physician Time discovered patient gone: December vt1 2024 at 19:23 19:30 Patient left the ED. me1 Signatures: Destin Davis NP DIRECTOR OF PRIMARY pm1 Margie Nettles Pamela Roy, RN RN me1
--- NOTE | 2024-12-17 19:31 | EDPHYS ---
Physician Documentation [facility] Name: Natanael Dyson Age: 29 yrs Sex: Female : 1995 Arrival Date: 12/17/2024 Time: 18:21 Bed Waiting Private MD: ED Physician Administered Medications: No medications were administered Disposition Summary: 12/17/24 19:30 Eloped Notes: Disposition: before being seen by provider me1 Reason: (see nurse's notes) me1 Signatures: Destin Davis NP GEAR KEEPER pm1 Pamela Roy RN RN me1 Corrections: (The following items were deleted from the chart) 12/17 19:09 18:32 Medical Screening Exam initiated pm1 pm1
== END 2024-12-17 19:30 | disposition left against medical advice (07) ==
LOC: ER 18:21
DX: Z53.21 Procedure and treatment not carried out due to patient leaving prior to being seen by health care provider (principal)
CPT/HCPCS: 99281

== ENCOUNTER 2024-12-24 08:12 | Emergency (ER) | payer OTHER ==
[2024-12-24] MEDS ORDERED: ACETAMINOPHEN 500 MG TAB ONE (08:50)
[2024-12-24] MEDS ORDERED: CYCLOBENZAPRINE 10 MG TAB ONE (08:50)
--- NOTE | 2024-12-24 08:55 | ER ---
Nurse's Notes [facility] Name: Natanael Dyson Age: 29 yrs Sex: Female : 1995 Arrival Date: 12/24/2024 Time: 08:12 Bed 12 Private MD: Diagnosis: Pain in left shoulder;Fall on same level, unspecified Presentation: 12/24 08:38 Chief complaint:. Coronavirus screen: Client denies travel out of the [place] in the last ss 14 days. Ebola Screen: Patient denies exposure to infectious person. Patient denies travel to an Ebola-affected area in the 21 days before illness onset. Initial Sepsis Screen: Does the patient meet any 2 criteria? No. Patient's initial sepsis screen is negative. Does the patient have a suspected source of infection? No. Patient's initial sepsis screen is negative. Risk Assessment: Do you want to hurt yourself or someone else? Patient reports no desire to harm self or others. 08:38 Method Of Arrival: Ambulatory ss 08:45 Chief complaint: Patient states: pulled by dog 45 minutes this morning, jarring her arm ss and causing her to fall. No obvious deformity noted. 08:46 Onset of symptoms was December 24, 2024. ss 08:46 Acuity: THIERNO 4 ss Historical: - Allergies: 08:37 Compazine; ss 08:37 Haldol; ss 08:37 Iodine; ss 08:37 Morphine; ss 08:37 NSAIDS NON STEROIDAL ANTI INFLAMMATORY DRUG; ss 08:37 Reglan; ss 08:37 Toradol; ss - PMHx: 08:37 Anxiety; breast cancer; depressive disorder; Kidney stone; nephritis; Ovarian cyst ss (Unknown); - PSHx: 08:37 section; Cholecystectomy; Ligation of fallopian tube; Tonsillectomy; ss Screenin:56 Abuse screen: Denies threats or abuse. Denies injuries from another. Nutritional ss screening: No deficits noted. Tuberculosis screening: Never had TB. Assessment: 08:56 General: Appears in no apparent distress. comfortable, Behavior is calm, appropriate ss for age. Pain: Complains of pain in left arm Pain currently is 7 out of 10 on a pain scale. Quality of pain is described as tender. Neuro: Level of Consciousness is awake, alert, obeys commands, Oriented to person, place, time, situation. Cardiovascular: Pulses are palpable in right radial artery and left radial artery. Respiratory: Respiratory effort is even, unlabored, Respiratory pattern is regular, symmetrical. Derm: Skin is pink, warm \\T\\ dry. 08:56 Reassessment: Upon bringing in ICE pack and ordered medications to patient, pt states, ss "I just talked to my and he says that I should go somewhere else." Informed patient that XRAYs should be obtained momentarily and that we would be given her Tylenol and Flexeril at with an ICE pack at this time. Pt contemplated for a moment about staying, but ultimately decided she would prefer to leave at this time. Pt is moving bilateral upper extremities with ease including affected limb, texting. Vital Signs: 08:26 BP 138 / 101; Pulse 128; Resp 18; Temp 98.5; Pulse Ox 100% ; Weight 54.43 kg; Height 5 dr5 ft. 1 in. ; Pain 7/10; 08:26 Body Mass Index 22.67 (54.43 kg, 154.94 cm) dr5 08:26 Pain Scale: Adult dr5 ED Course: 08:15 Patient arrived in ED. cj3 08:15 Abdifatah Flores FNP-C is [facility]. dr5 08:15 Neto Dean DO is Attending Physician. dr5 08:38 Arm band placed on right wrist. ss 08:45 Violeta Dubois RN is Primary Nurse. ss 08:46 Triage completed. ss 08:56 No provider procedures requiring assistance completed. Patient did not have IV access ss during this emergency room visit. Administered Medications: 08:45 Not Given (Patient Refused): iwqrcsibm61 mg IM once ss 08:56 Not Given (Patient Refused): [id number] mg PO once ss 08:56 Not Given (Patient Refused): tghjxfdxtezvsbx35 mg PO once ss Outcome: 08:55 Discharge ordered by MD. dr5 08:56 Discharged to home ambulatory, ss 08:56 Condition: good 08:56 Discharge instructions given to patient, Instructed on discussed with patient that she may return as needed. Left prior to receiving discharge paperwork 09:00 Patient left the ED. ss Signatures: Violeta Dubois RN RN Abdifatah Flores FNP-C SHEEP SHEARER-Cdr5 Blanca Gutierrez cj3 Corrections: (The following items were deleted from the chart) 09:00 08:56 Discharge instructions given to patient, Instructed on discussed with patient ss that she may return as needed ss
--- NOTE | 2024-12-24 08:55 | EDPHYS ---
Physician Documentation [facility] Name: Natanael Dyson Age: 29 yrs Sex: Female : 1995 Arrival Date: 12/24/2024 Time: 08:12 Bed 12 Private MD: ED Physician Neto Dean HPI: 12/24 08:21 This 29 yrs old Female presents to ER via Ambulatory with complaints of left dr5 shoulder pain after fall. 08:21 Onset: The symptoms/episode began/occurred acutely. dr5 08:22 Patient is a 29 year old female with history of nephrolithiasis coming in with fall dr5 that occurred prior to arrival. Patient reports was walking her dog over a bridge when the dog ran and pulled her causing her to fall down hitting left shoulder and rolling down an unknown amount of stairs. Patient has pain to left shoulder, left arm, and left neck pain. Patient denies loss of consciousness. Patient denies being on blood thinners. Patient reports that she took 1 tramadol prior to arrival. Patient denies chest pain, shortness of breath, nausea, vomiting, diarrhea.. Historical: - Allergies: 08:37 Compazine; ss 08:37 Haldol; ss 08:37 Iodine; ss 08:37 Morphine; ss 08:37 NSAIDS NON STEROIDAL ANTI INFLAMMATORY DRUG; ss 08:37 Reglan; ss 08:37 Toradol; ss - PMHx: 08:37 Anxiety; breast cancer; depressive disorder; Kidney stone; nephritis; Ovarian cyst ss (Unknown); - PSHx: 08:37 section; Cholecystectomy; Ligation of fallopian tube; Tonsillectomy; ss ROS: 08:43 Constitutional: as per hpi dr5 Exam: 08:45 Constitutional: This is a well developed, well nourished patient who is awake, alert, dr5 and in no acute distress. Head/Face: Normocephalic, atraumatic. Eyes: Pupils equal round and reactive to light, extra-ocular motions intact. Lids and lashes normal. Conjunctiva and sclera are non-icteric and not injected. Cornea within normal limits. Periorbital areas with no swelling, redness, or edema. Neck: Trachea midline, no thyromegaly or masses palpated, and no cervical lymphadenopathy. Supple, full range of motion without nuchal rigidity, or vertebral point tenderness. No Meningismus. Chest/axilla: Normal chest wall appearance and motion. Nontender with no deformity. No lesions are appreciated. Cardiovascular: Regular rate and rhythm with a normal S1 and S2. Normal PMI, no JVD. No pulse deficits. Respiratory: Lungs have equal breath sounds bilaterally, clear to auscultation. No rales, rhonchi or wheezes noted. No increased work of breathing, no retractions or nasal flaring. Back: No spinal tenderness. No costovertebral tenderness. Full range of motion. Skin: Warm, dry with normal turgor. Normal color with no rashes, no lesions, and no evidence of cellulitis. MS/ Extremity: Pulses equal, no cyanosis. Neurovascular intact. Full, normal range of motion. Patient screams in pain with light touch to left shoulder, upper back, left humerus, left elbow, and left forearm. No obvious signs of swelling, contusion, abrasion, redness to left arm. Neuro: Awake and alert, GCS 15, oriented to person, place, time, and situation. Cranial nerves II-XII grossly intact. Motor strength 5/5 in all extremities. Sensory grossly intact. Cerebellar exam normal. Normal gait. Vital Signs: 08:26 BP 138 / 101; Pulse 128; Resp 18; Temp 98.5; Pulse Ox 100% ; Weight 54.43 kg; Height 5 dr5 ft. 1 in. ; Pain 7/10; 08:26 Body Mass Index 22.67 (54.43 kg, 154.94 cm) dr5 08:26 Pain Scale: Adult dr5 MDM: 08:16 Medical Screening Exam initiated dr5 08:30 External Records Reviewed: Outpatient record: Reviewed [facility]. Patient has a dr5 narcotic score of 490 and sedative score 481.. 08:55 Differential diagnosis: Strain, fracture, contusion. Data reviewed: vital signs, nurses dr5 notes, radiologic studies, plain films. Consideration of Admission/Observation Escalation of care including admission/observation considered. Escalation considered patient found to have dislocation of shoulder.. I considered the following discharge prescriptions or medication management in the emergency department I discussed and recommended Over The Counter medications, Medications were administered in the Emergency Department. See MAR. Care significantly affected by the following Social Determinants of Health: Poor access to healthcare and/or lack of insurance, Poor access to transportation, Problems related to employment. Counseling: I had a detailed discussion with the patient and/or guardian regarding the historical points, exam findings, and any diagnostic results supporting the discharge/admit diagnosis, the presence of at least one elevated blood pressure reading (>120/80) during this emergency department visit, the need for outpatient follow up, for definitive care, a family practitioner, to return to the emergency department if symptoms worsen or persist or if there are any questions or concerns that arise at home. Medication response: Patient refused medications. Special discussion: I have referred the patient to see his PCP for further evaluation of high blood pressure. ED course: Patient reports that her is ready for her to go. Patient did not have x-rays completed. Patient was offered ice pack but kindly refused. Of note, on observation of leaving, patient is able to move left arm and text and noted swinging left arm while walking out. Will discharge patient home back to primary care doctor. Strict ER precautions were given. Patient reports " you guys need anything wrong, just going to listen to my and head out". 12/24 08:54 Order name: Ice pack; Complete Time: 08:56 dr5 Administered Medications: 08:45 Not Given (Patient Refused): pidekslnl51 mg IM once ss 08:56 Not Given (Patient Refused): [id number] mg PO once ss 08:56 Not Given (Patient Refused): zbnutcmbclujlmx89 mg PO once ss Disposition: 19:21 I was immediately available on-site in the Emergency Department for consultation in the ms3 care of the patient. Disposition Summary: 12/24/24 08:55 Discharge Ordered Notes: Location: Home dr5 Condition: Stable dr5 Diagnosis - Pain in left shoulder dr5 - Fall on same level, unspecified dr5 Followup: dr5 - With: Emergency Department - When: As needed - Reason: Worsening of condition Followup: dr5 - With: Private Physician - When: 1 - 2 days - Reason: Recheck today's complaints, Continuance of care, Re-evaluation by your physician Discharge Instructions: - Discharge Summary Sheet dr5 - Shoulder Pain, Graj-me-Pddv dr5 Forms: - Medication Reconciliation Form dr5 - Patient Portal Instructions dr5 - Leadership Thank You Letter dr5 Signatures: Dispatcher [employer] Violeta Beach RN RN Neto Ambrocio, DO ms3 Abdifatah Flores, HSE MANAGER-C HSE MANAGER-Cdr5 Corrections: (The following items were deleted from the chart) 08:45 08:21 This 29 yrs old Female presents to ER via Ambulatory with complaints of dr5 Neck Pain, Back Pain, Arm Pain, ABD Soreness. dr5 08:48 08:22 Patient is a 29 year old female with history of nephrolithiasis. Patient has pain dr5 to left shoulder, neck, and right lower abdominal pain.. dr5
[2024-12-24 10:21] VITALS: BP 138/101; TEMP 98.5; O2SAT 100
== END 2024-12-24 09:00 | disposition home or self-care (01) ==
LOC: ER 08:12
DX: M25.512 Pain in left shoulder (principal); W18.30XA Fall on same level, unspecified, initial encounter
CPT/HCPCS: 99282

== ENCOUNTER 2025-02-06 09:44 | Emergency (ER) | payer OTHER ==
[2025-02-06] MEDS ORDERED: NA CHLORIDE 0.9% 1,000 ML ONE (10:11)
[2025-02-06] MEDS ORDERED: ONDANSETRON 4 MG/2 ML VIAL ONE (10:11)
[2025-02-06 10:43] LABS: Sqamous Epithelial <5 /HPF (None Seen); Urine Culture Reflex Order NOT NEEDED; Urine Microscopic Reflex YN ORDER UMIC; Urine WBC Clump Rare /HPF (None Seen); Urine Yeast (Budding) Trace /HPF (None Seen)
[2025-02-06 10:46] LABS: Absolute Lymphocytes (CBC) 1.8 K/uL (0.7-4.9); Hematocrit 44.7 % (36.0-45.0); Hemoglobin 15.1 g/dL (12.0-15.0); MCH 28.9 pg (27.0-35.0); MCHC 33.7 g/dL (32.0-36.0); MCV 85.8 fL (80-100); MPV 7.7 fL (7.6-11.3); Nucleated RBC Absolute Count 0.0 (0-0); Nucleated Red Blood Cells % 0.2 % (0-0); RBC Red Blood Cell Count 5.21 M/uL (3.86-4.86); White Blood Count 5.10 thou/uL (4.3-10.9)
[2025-02-06 11:01] LABS: Anion Gap 10.8 mEq/L (5.0-15.0); BUN Blood Urea Nitrogen 5.0 mg/dL (7-18); Glucose Level 85.0 mg/dL (74-106)
[2025-02-06 11:20] LABS: Potassium 3.8 mEq/L (3.5-5.1)
--- NOTE | 2025-02-06 11:30 | ER ---
Nurse's Notes [facility] Name: Natanael Dyson Age: 29 yrs Sex: Female : 1995 Arrival Date: 02/06/2025 Time: 09:44 Bed 5 Private MD: Brian Greenwood Diagnosis: Low back pain Presentation: 02/06 10:10 Chief complaint: Patient states: lower back pain started 3x days ago. Coronavirus af3 screen: At this time, the client does not indicate any symptoms associated with coronavirus-19. Ebola Screen: No symptoms or risks identified at this time. Initial Sepsis Screen: Does the patient meet any 2 criteria? No. Patient's initial sepsis screen is negative. Does the patient have a suspected source of infection? No. Patient's initial sepsis screen is negative. Risk Assessment: Do you want to hurt yourself or someone else? Patient reports no desire to harm self or others. Onset of symptoms was February 03, 2025. 10:10 Method Of Arrival: Wheelchair af3 10:10 Acuity: THIERNO 4 af3 10:13 Acuity: THIERNO 3 cm10 Triage Assessment: 10:13 General: Appears distressed, uncomfortable, well groomed, well developed, Behavior is af3 calm, cooperative, appropriate for age. Pain: Complains of pain in low back area. Neuro: Level of Consciousness is awake, alert, obeys commands, Oriented to person, place, time, situation, Appropriate for age. Cardiovascular: Patient's skin is warm and dry. Respiratory: Airway is patent Respiratory effort is even, unlabored, Respiratory pattern is regular, symmetrical. Musculoskeletal: Circulation, motion, and sensation intact. 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 - Infectious Disease History:: Denies. - Social history:: Smoking status: unknown. Screenin:36 [facility] ED Fall Risk Assessment (Adult) History of falling in the last 3 months, cm10 including since admission No falls in past 3 months (0 pts) Confusion or Disorientation No (0 pts) Intoxicated or Sedated No (0 pts) Impaired Gait No (0 pts) Mobility Assist Device Used No (0 pt) Altered Elimination No (0 pt) Score/Fall Risk Level 0 - 2 = Low Risk Oriented to surroundings, Maintained a safe environment, Hourly rounding (assess needs \T\ fall precautionary measures) done. Abuse screen: Denies threats or abuse. Denies injuries from another. Nutritional screening: No deficits noted. Tuberculosis screening: No symptoms or risk factors identified. Assessment: 10:15 General: Appears uncomfortable, Behavior is cooperative. Neuro: No deficits noted. cm10 Level of Consciousness is awake, alert, Oriented to person, place, time, situation, Appropriate for age. Respiratory: No deficits noted. Airway is patent Respiratory effort is even, unlabored, Respiratory pattern is regular, symmetrical. GI: Reports intolerance of fluids, intolerance of food, nausea, vomiting. Musculoskeletal: Reports pain in low back area. 10:20 General: Pt requesting pain meds at this time. Provider made aware.. cm10 11:20 General: Pt requesting IV pain medication, provider offered oral benadryl for hives on cm10 left arm and pt declined.. Vital Signs: 10:10 BP 143 / 103; Pulse 127; Resp 18; Temp 97.9; Pulse Ox 100% on R/A; Weight 58.97 kg; af3 Height 5 ft. 1 in. ; 11:19 BP 143 / 102; Pulse 96; Resp 16; Pulse Ox 100% ; cm10 10:10 Body Mass Index 24.56 (58.97 kg, 154.94 cm) af3 ED Course: 09:45 Patient arrived in ED. am2 09:46 Brian Greenwood MD is Private Physician. am2 09:47 Harjit Samson MD is Attending Physician. rn 10:05 Abdifatah Flores [facility]C [facility]. dr5 10:13 Fannie Win, ROSEY is Primary Nurse. cm10 10:13 Triage completed. af3 10:13 Arm band placed on. af3 10:30 Initial lab(s) drawn, by me, sent to lab. Urine collected: clean catch specimen. cm10 Inserted saline lock: 24 gauge in left hand, using aseptic technique. Blood collected. Flushed with 10 mL NS. 11:37 Patient has correct armband on for positive identification. Provided Education on: cm10 Follow-up instructions. 11:38 No provider procedures requiring assistance completed. IV discontinued, intact, cm10 bleeding controlled, No redness/swelling at site. Pressure dressing applied. Administered Medications: 10:30 Drug: NS 0.9% IV 1000 ml IV at 1000 ml once; to be given as a bolus over 60 minutes cm10 Route: IV; Rate: 1000 ml; Site: left hand; 11:30 Follow up: Response: No adverse reaction; IV Status: Completed infusion; IV Intake: cm10 500ml 10:30 Drug: Ondansetron IVP 4 mg IVP once; over 2 minutes Route: IVP; Site: left hand; cm10 11:30 Follow up: Response: No adverse reaction cm10 Medication: 11:38 VIS not applicable for this client. cm10 Intake: 11:30 IV: 500ml; Total: 500ml. cm10 Outcome: 11:29 Discharge ordered by . dr5 11:37 Discharged to home ambulatory, cm10 11:37 Condition: good 11:37 Discharge instructions given to patient, Instructed on discharge instructions, follow up and referral plans. Demonstrated understanding of instructions, follow-up care, 11:39 Patient left the ED. cm10 Signatures: Harjit Samson MD MD rn Moreno, Amanda am2 Fannie Win RN RN cm10 Akanksha Evans RN RN af3 Abdifatah Flores, ASSISTANT PROGRAM DIRECTOR-C ASSISTANT PROGRAM DIRECTOR-Cdr5 Corrections: (The following items were deleted from the chart) 11:38 11:30 General: Pt requesting IV pain medication, provider offered oral benadryl for cm10 hives on left arm and pt declined.. cm10
--- NOTE | 2025-02-06 11:30 | EDPHYS ---
Physician Documentation [facility] Name: Natanael Dyson Age: 29 yrs Sex: Female : 1995 Arrival Date: 02/06/2025 Time: 09:44 Bed 5 Private MD: Brian Greenwood ED Physician Harjit Samson HPI: 02/06 10:21 This 29 yrs old Female presents to ER via Wheelchair with complaints of Flank dr5 Pain, Back Pain, Pelvic Pain, Nausea/Vomiting. 10:21 The patient complains of pain in the left mid back and right mid back. Onset: The dr5 symptoms/episode began/occurred 3 day(s) ago. Patient is a 21-year-old female with history of anxiety, breast cancer, depression disorder, kidney stones, nephritis, ovarian cyst, chronic hydronephrosis with multiple allergies to medications coming in for generalized back pain with nausea has been going on for the past 3 days. Patient states that she is hesitant to come to this hospital as do not provide services that she thinks that she needs which includes pain medications and opiates. Patient sitting on floor next to bed during initial assessment with blanket over her head.. 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 - Infectious Disease History:: Denies. - Social history:: Smoking status: unknown. ROS: 10:21 Constitutional: as per hpi dr5 Exam: 10:21 Constitutional: This is a well developed, well nourished patient who is awake, alert, dr5 and in no acute distress. Head/Face: Normocephalic, atraumatic. Eyes: Pupils equal round and reactive to light, extra-ocular motions intact. Lids and lashes normal. Conjunctiva and sclera are non-icteric and not injected. Cornea within normal limits. Periorbital areas with no swelling, redness, or edema. Neck: Trachea midline, no thyromegaly or masses palpated, and no cervical lymphadenopathy. Supple, full range of motion without nuchal rigidity, or vertebral point tenderness. No Meningismus. Chest/axilla: Normal chest wall appearance and motion. Nontender with no deformity. No lesions are appreciated. Cardiovascular: Regular rate and rhythm with a normal S1 and S2. Normal PMI, no JVD. No pulse deficits. Respiratory: Lungs have equal breath sounds bilaterally, clear to auscultation. No rales, rhonchi or wheezes noted. No increased work of breathing, no retractions or nasal flaring. Abdomen/GI: Soft, non-tender, non-distended Back: No spinal tenderness. Mild bilateral costovertebral tenderness. Full range of motion. Skin: Warm, dry with normal turgor. Normal color with no rashes, no lesions, and no evidence of cellulitis. MS/ Extremity: Pulses equal, no cyanosis. Neurovascular intact. Full, normal range of motion. Neuro: Awake and alert, GCS 15, oriented to person, place, time, and situation. Cranial nerves II-XII grossly intact. Motor strength 5/5 in all extremities. Sensory grossly intact. Cerebellar exam normal. Normal gait. Vital Signs: 10:10 BP 143 / 103; Pulse 127; Resp 18; Temp 97.9; Pulse Ox 100% on R/A; Weight 58.97 kg; af3 Height 5 ft. 1 in. ; 11:19 BP 143 / 102; Pulse 96; Resp 16; Pulse Ox 100% ; cm10 10:10 Body Mass Index 24.56 (58.97 kg, 154.94 cm) af3 MDM: 09:47 Medical Screening Exam initiated rn 11:32 Differential diagnosis: nephrolithiasis, UTI, Back pain, depression, electrolyte dr5 abnormality, . Data reviewed: vital signs, nurses notes, lab test result(s), CBC, white blood cell count, hemoglobin, hematocrit, platelets, electrolytes, sodium, potassium, chloride, serum bicarbonate, BUN, creatinine, serum glucose, urinalysis, UPT: negative. Consideration of Admission/Observation Escalation of care including admission/observation considered. Escalation considered patient found to have acute kidney injury or trace blood in urine. I considered the following discharge prescriptions or medication management in the emergency department I discussed and recommended Over The Counter medications, Medications were administered in the Emergency Department. See MAR. Test considered but Not performed: CT: CT considered but deferred due to patient not having blood in urine as well as patient stating she has bilateral chronic back pain which usually is not kidney stone. Care significantly affected by the following chronic conditions: Anxiety, breast cancer, depression, kidney stone, ovarian cyst. Care significantly affected by the following Social Determinants of Health: Poor access to healthcare and/or lack of insurance, Poor access to transportation, Problems related to employment. Counseling: I had a detailed discussion with the patient and/or guardian regarding the historical points, exam findings, and any diagnostic results supporting the discharge/admit diagnosis, the presence of at least one elevated blood pressure reading (>120/80) during this emergency department visit, lab results, the need for outpatient follow up, for definitive care, a family practitioner, an OB/Gyne specialist, Nephrology. Medication response: Zofran did not change the patient's condition. The patient is still nauseated. Response to treatment: There is no appreciated change of the patient's symptoms at this time. Special discussion: I have referred the patient to see his PCP for further evaluation of high blood pressure. I discussed with the patient/guardian in detail that at this point there is no indication for admission to the hospital. It is understood, however, that if the symptoms persist or worsen the patient needs to return immediately for re-evaluation. Based on the history and exam findings, there is no indication for further emergent testing or inpatient evaluation. I discussed with the patient/guardian the need to see the OB Gyne specialist for further evaluation of the symptoms. I discussed with the patient/guardian the need to see the primary care provider for further evaluation of the symptoms. Nephrology. 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 Patient states that her escape wheel tooth cutter recommends a complete hysterectomy for ovarian cyst. Patient reports that her leaf stripper is working with her on her kidney stone prevention. Patient states that she would like to have IV Benadryl as well as IV pain medication. I had discussion with concerns about patient's allergy list and being allergic to morphine. Patient reports Dr. Estrella has given it to her in the past and it has worked. Patient reports that she had 3 Tylenol prior to arrival as well as Benadryl within the last 4 hours. I offered her Benadryl by mouth but she states it does not work. Upon patient realizing she will not be receiving IV Benadryl or IV pain medication, she began to tell me "You're a fucking idiot. This is why I do not come to this hospital. This hospital hands out review cards to get the reviews up. You do not know what you are doing or you just do not care. You are complete jackass and I need to follow a lawsuit. Even Dr. Samson is ten times better than you will ever be". I explained to patient that I will give her lab work and a prescription for Tylenol for pain and have her follow-up with primary care doctor. Patient's IV was removed and ambulated out of ER in no distress.. ED course: Patient all call button throughout entire ER stay for pain medication. Patient was on stretcher on hands and knees. Patient repeatedly asking nurses for IV Benadryl and IV pain medication.. 02/06 10:05 Order name: CBC with Diff; Complete Time: 11:00 02/06 10:05 Order name: BMP; Complete Time: 11: dr5 02/06 10:05 Order name: UA Rfx Yunier Cult if indicated; Complete Time: 11: dr5 02/06 10:06 Order name: Test, Urine; Complete Time: 11:00 dr5 Administered Medications: 10:30 Drug: NS 0.9% IV 1000 ml IV at 1000 ml once; to be given as a bolus over 60 minutes cm10 Route: IV; Rate: 1000 ml; Site: left hand; 11:30 Follow up: Response: No adverse reaction; IV Status: Completed infusion; IV Intake: cm10 500ml 10:30 Drug: Ondansetron IVP 4 mg IVP once; over 2 minutes Route: IVP; Site: left hand; cm10 11:30 Follow up: Response: No adverse reaction cm10 Disposition: 13:27 Co-signature as Attending Physician, Harjit Samson MD I reviewed the patient's care rn provided by the Advanced Practice Provider and agree with the diagnosis and treatment plan. Disposition Summary: 02/06/25 11:29 Discharge Ordered Notes: Location: Home dr5 Condition: Stable dr5 Diagnosis - Low back pain dr5 Followup: dr5 - With: Emergency Department - When: As needed - Reason: Worsening of condition Followup: dr5 - With: Private Physician - When: 1 - 2 days - Reason: Recheck today's complaints, Continuance of care, Re-evaluation by your physician Discharge Instructions: - Discharge Summary Sheet dr5 - Chronic Back Pain dr5 Forms: - Medication Reconciliation Form dr5 - Patient Portal Instructions dr5 - Leadership Thank You Letter dr5 Prescriptions: - Tylenol 325 mg Oral tablet - take 3 tablet ORAL route every 6 hours As needed as needed; 30 tablet; Refills: dr5 0, Product Selection Permitted Signatures: Dispatcher [employer] EDMS Harjit Samson MD MD rn Fannie Win RN RN cm10 Akanksha Evans RN RN af3 Abdifatah Flores, ELADIO-C BURLAP BAG SEWER-Cdr5 Corrections: (The following items were deleted from the chart) 10:22 10:21 Patient is a 21-year-old female with history of anxiety, breast cancer, dr5 depression disorder, kidney stones, nephritis, ovarian cyst, chronic hydronephrosis with multiple allergies to medications coming in for generalized back pain with nausea has been going on for the past 3 days. Patient states that she is hesitant to come to this hospital as do not provide services that she thinks that she needs which includes pain medications and opiates.. dr5 11:41 11:32 ED course: Labwork completed with CBC / BMP / UA / Urine discussed with dr5 patient. Patient repeatedly asking . dr5
[2025-02-06 11:43] VITALS: TEMP 97.9; O2SAT 100
[2025-02-06 11:45] VITALS: BP 143/102
== END 2025-02-06 11:39 | disposition home or self-care (01) ==
LOC: ER 09:44
DX: M54.50 Low back pain, unspecified (principal); R11.2 Nausea with vomiting, unspecified; F41.9 Anxiety disorder, unspecified; F32.A Depression, unspecified; N20.0 Calculus of kidney; Z85.3 Personal history of malignant neoplasm of breast; Z88.5 Allergy status to narcotic agent; Z88.8 Allergy status to other drugs, medicaments and biological substances
CPT/HCPCS: 96361; 85025; 81001; 80048; 36415; 81025; 96374; 99284; J2405; J7030

== ENCOUNTER 2025-02-21 07:52 | Emergency (ER) | payer OTHER ==
[2025-02-21] MEDS ORDERED: ONDANSETRON 4 MG/2 ML VIAL ONE (08:49)
[2025-02-21] MEDS ORDERED: NA CHLORIDE 0.9% 1,000 ML ONE (08:50)
[2025-02-21] MEDS ORDERED: DIPHENHYDRAMINE 50 MG/ML VIAL ONE ×2 (08:50→11:19)
[2025-02-21] MEDS ORDERED: ACETAMINOPHEN 500 MG TAB ONE (08:50)
--- NOTE | 2025-02-21 09:31 | RAD REPORT ---
EXAMINATION: CT ABDOMEN AND PELVIS WITHOUT CONTRAST CLINICAL INDICATION: FLANK PAIN TECHNIQUE: CT abdomen and pelvis was performed, without IV contrast, as per department protocol. Axia l, sagittal and coronal reconstructions were obtained. One or more of the following dose reduction techniques were used: Automated exposure control, adjustment of the mA and kV according to the patien t size, and iterative reconstruction. Unless otherwise specified, incidental findings do not require dedicated imaging follow-up. COMPARISON: 01/23/2025 FINDINGS: The lack of intravenous contrast limits the sensitivity of this exam for evaluation of solid visceral organs, vascular structures, and retroperitoneum. LOWER CHEST: The visualized lung bases are clear. LIVER:Normal in size and contour. No focal lesion. Cholecystectomy clips. SPLEEN: Normal size. No focal lesion. PANCREAS: No mass, ductal dilation, or brayan-pancreatic fluid. ADRENALS: Normal; no mass. KIDNEYS AND URETERS: Mild right hydronephrosis and proximal hydroureter to the level of the right maria r ac artery. No obstructing calculus seen. URINARY BLADDER: Normal contour. GASTROINTESTINAL TRACT: No evidence of bowel obstruction, significant free fluid, free air or abscess . Moderate stool in the rectosigmoid colon. APPENDIX: Normal appendix. LYMPH NODES: No lymphadenopathy. MUSCULOSKELETAL: Mild multilevel spinal degenerative changes. ADDITIONAL FINDINGS: Small fat-containing umbilical hernia IMPRESSION: Mild right hydronephrosis and proximal right hydroureter to the level of the midureter/right iliac ar rudy.No radiopaque stone is seen. Punctate calculus is seen superior calyx right kidney. Moderate fat-containing umbilical hernia.
[2025-02-21 11:23] LABS: Sqamous Epithelial <5 /HPF (None Seen); Urine Culture Reflex Order NOT NEEDED; Urine Microscopic Reflex YN ORDER UMIC; Urine Yeast (Budding) Trace /HPF (None Seen)
[2025-02-21 11:32] LABS: ALT/SGPT 38.0 U/L (13-56); AST/SGOT 26.0 U/L (15-37); Absolute Lymphocytes (CBC) 1.4 K/uL (0.7-4.9); Albumin 3.7 g/dL (3.4-5.0); Albumin/Globulin Ratio 1.0 (1.1-1.8); Alkaline Phosphatase 75.0 U/L (45-117); Anion Gap 11.3 mEq/L (5.0-15.0); BUN Blood Urea Nitrogen 10.0 mg/dL (7-18); Globulin 3.7 g/dL (2.3-3.5); Glucose Level 87.0 mg/dL (74-106); Hematocrit 41.1 % (36.0-45.0); Hemoglobin 13.5 g/dL (12.0-15.0); Lipase 25.0 U/L (13-75); MCH 28.4 pg (27.0-35.0); MCHC 32.9 g/dL (32.0-36.0); MCV 86.4 fL (80-100); MPV 8.0 fL (7.6-11.3); Nucleated RBC Absolute Count 0.0 (0-0); Nucleated Red Blood Cells % 0.1 % (0-0); Potassium 3.3 mEq/L (3.5-5.1); RBC Red Blood Cell Count 4.76 M/uL (3.86-4.86); White Blood Count 7.20 thou/uL (4.3-10.9)
--- NOTE | 2025-02-21 11:43 | ER ---
Nurse's Notes [facility] Name: Natanael Dyson Age: 30 yrs Sex: Female : 1995 Arrival Date: 02/21/2025 Time: 07:52 Bed 4 Private MD: Diagnosis: Low back pain;Other hydronephrosis Presentation: 02/21 08:10 Chief complaint: Patient states: Abdominal pain with nausea for 4 days. Coronavirus ll1 screen: Client denies travel out of the [place] in the last 14 days. At this time, the client does not indicate any symptoms associated with coronavirus-19. Ebola Screen: Patient denies travel to an Ebola-affected area in the 21 days before illness onset. Initial Sepsis Screen: Does the patient meet any 2 criteria? No. Patient's initial sepsis screen is negative. Does the patient have a suspected source of infection? No. Patient's initial sepsis screen is negative. Risk Assessment: Do you want to hurt yourself or someone else? Patient reports no desire to harm self or others. Onset of symptoms was February 18, 2025. 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 - Infectious Disease History:: Denies. - Social history:: Smoking status: Patient denies any tobacco usage or history of. Screenin:00 [facility] ED Fall Risk Assessment (Adult) History of falling in the last 3 months, cc6 including since admission No falls in past 3 months (0 pts) Confusion or Disorientation No (0 pts) Intoxicated or Sedated No (0 pts) Impaired Gait No (0 pts) Mobility Assist Device Used No (0 pt) Altered Elimination No (0 pt) Score/Fall Risk Level 0 - 2 = Low Risk Oriented to surroundings, Maintained a safe environment, Educated pt \T\ family on fall prevention, incl call for assistance when getting out of bed. Abuse screen: Denies threats or abuse. Denies injuries from another. Nutritional screening: No deficits noted. Tuberculosis screening: No symptoms or risk factors identified. Assessment: 08:20 General: Appears in no apparent distress. uncomfortable, Behavior is calm, cooperative, cc6 restless. Pain: Complains of pain in left low back and right low back Pain radiates to right lower quadrant and left lower quadrant Pain currently is 9 out of 10 on a pain scale. Quality of pain is described as sharp. Neuro: Level of Consciousness is awake, alert, obeys commands, Oriented to person, place, time, situation. Cardiovascular: Patient's skin is warm and dry. Respiratory: Airway is patent Respiratory effort is even, unlabored, Respiratory pattern is regular, symmetrical. GI: Bowel sounds present X 4 quads. Abd is soft X 4 quads Abd is non tender in right upper quadrant, left upper quadrant and left lower quadrant Abdomen has rebound tenderness in right lower quadrant. : Reports burning with urination. EENT: No signs and/or symptoms were reported regarding the EENT system. Derm: No signs and/or symptoms reported regarding the dermatologic system. Musculoskeletal: Range of motion: intact in all extremities. 10:32 Reassessment: Patient and/or family updated on plan of care and expected duration. Pain ll1 level reassessed. requests more pain medication for her back pain. ELADIO Lawrence informed. 11:30 Reassessment: Patient and/or family updated on plan of care and expected duration. Pain cc6 level reassessed. Patient is alert, oriented x 3, equal unlabored respirations, skin warm/dry/pink. Vital Signs: 08:10 BP 130 / 99; Pulse 115; Resp 20; Temp 97.8; Pulse Ox 100% ; Weight 54.43 kg; Height 5 ll1 ft. 1 in. ; Pain 1010; 08:30 BP 115 / 73; Pulse 62; Resp 17; Pulse Ox 98% on R/A; cc6 11:30 BP 125 / 76; Pulse 64; Resp 16; Pulse Ox 100% on R/A; cc6 08:10 Body Mass Index 22.67 (54.43 kg, 154.94 cm) ll1 08:10 Pain Scale: Adult ll1 ED Course: 07:55 Patient arrived in ED. sj2 07:55 [facility] kb 07:55 Harjit Samson MD is Attending Physician. kb 08:00 Bed in low position. Call light in reach. Side rails up X 1. Provided Education on: USE cc6 OF CALL LIGHT. 08:09 Arm band placed on Patient placed in an exam room, on a stretcher. ll1 08:11 Triage completed. ll1 08:12 Sarah Archibald, ROSEY is Primary Nurse. cc6 08:44 Initial lab(s) drawn, by me, sent to lab. Inserted saline lock: 24 gauge in left hand, bp using aseptic technique. Blood collected. Flushed with 10 mL NS. 09:23 CT Stone Protocol In Process Unspecified. EDMS 12:35 No provider procedures requiring assistance completed. intact, bleeding controlled, No cc6 redness/swelling at site. Pressure dressing applied. Administered Medications: 08:58 Drug: Ondansetron IVP 4 mg IVP once; over 2 minutes Route: IVP; Site: left hand; bp 12:30 Follow up: Response: No adverse reaction cc6 08:58 Drug: NS 0.9% IV 1000 ml IV at 1 bolus Per protocol; to be given as a bolus over 60 bp minutes Route: IV; Rate: 1 bolus; Site: left hand; 12:30 Follow up: Response: No adverse reaction; IV Status: Completed infusion cc6 08:58 Drug: Acetaminophen PO 1000 mg PO once Route: PO; bp 12:30 Follow up: Response: No adverse reaction cc6 08:58 Drug: diphenhydrAMINE IVP 25 mg IVP once Route: IVP; Site: left hand; bp 12:30 Follow up: Response: No adverse reaction cc6 11:00 Drug: diphenhydrAMINE IVP 25 mg IVP once Route: IVP; Site: left hand; bp 12:30 Follow up: Response: No adverse reaction cc6 12:29 Drug: Potassium Chloride PO 20 mEq PO once Route: PO; cc6 12:30 Follow up: Response: No adverse reaction cc6 Medication: 12:29 VIS not applicable for this client. cc6 Outcome: 11:43 Discharge ordered by MD. jain 12:35 Discharged to home ambulatory, cc6 12:35 Condition: stable 12:35 Discharge instructions given to patient, Instructed on discharge instructions, follow up and referral plans. medication usage, Demonstrated understanding of instructions, follow-up care, medications, 12:36 Patient left the ED. cc6 Signatures: Dispatcher [employer] EDDE Bobbi Vang, ELADIO-C ELADIO-Jayy Mckeon RN RN Brandi Lerner RN RN ll1 Sarah Archibald RN RN cc6 Topher Wong 2
--- NOTE | 2025-02-21 11:43 | EDPHYS ---
Physician Documentation [facility] Name: Natanael Dyson Age: 30 yrs Sex: Female : 1995 Arrival Date: 02/21/2025 Time: 07:52 Bed 4 Private MD: ED Physician Harjit Samson HPI: 02/21 08:06 This 30 yrs old Female presents to ER via Unassigned with complaints of Abdominal Pain, kb Nausea, Possible Kidney Stone. 08:06 Pt is a 30 year old female who presents for bilateral flank pain, nausea and vomiting kb that started 4 days ago. Pt has a history of kidney stones and states this feels similar to when she had a large stone in the past. Reports decreased urination. Denies fever, abd pain. . 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 - Infectious Disease History:: Denies. - Social history:: Smoking status: Patient denies any tobacco usage or history of. ROS: 08:05 Constitutional: As per HPI kb Exam: 08:05 Head/Face: Normocephalic, atraumatic. ENT: Moist Mucous membranes Respiratory: kb Respirations even and unlabored. No increased work of breathing. Talking in full sentences Abdomen/GI: Soft, non-tender. No distention Skin: Warm, dry with normal turgor. Normal color. MS/ Extremity: Pulses equal, no cyanosis. Neurovascular intact. Full, normal range of motion. Neuro: Awake and alert, GCS 15, oriented to person, place, time, and situation. 08:05 Constitutional: The patient appears alert, awake, uncomfortable, 08:05 Cardiovascular: Rate: tachycardic, 08:05 Back: CVA tenderness, that is moderate, is noted bilaterally, Vital Signs: 08:10 BP 130 / 99; Pulse 115; Resp 20; Temp 97.8; Pulse Ox 100% ; Weight 54.43 kg; Height 5 ll1 ft. 1 in. ; Pain 10/10; 08:30 BP 115 / 73; Pulse 62; Resp 17; Pulse Ox 98% on R/A; cc6 11:30 BP 125 / 76; Pulse 64; Resp 16; Pulse Ox 100% on R/A; cc6 08:10 Body Mass Index 22.67 (54.43 kg, 154.94 cm) ll1 08:10 Pain Scale: Adult ll1 MDM: 07:55 Medical Screening Exam initiated kb 10:47 Data reviewed: vital signs, nurses notes. kb 11:43 Differential diagnosis: Pyelonephritis, Ureterolithiasis, urinary tract infection. kb Consideration of Admission/Observation Escalation of care including admission/observation considered. admission considered for hydronephrosis, but pt had similar findings on previous scan, kidney function wnl, pt has seen urology since previous scan and will follow back up with them. Counseling: I had a detailed discussion with the patient and/or guardian regarding the historical points, exam findings, and any diagnostic results supporting the discharge/admit diagnosis, lab results, radiology results, the need for outpatient follow up, a urologist, to return to the emergency department if symptoms worsen or persist or if there are any questions or concerns that arise at home. 02/21 08:05 Order name: CBC with Diff; Complete Time: 11:39 kb 02/21 08:05 Order name: CMP; Complete Time: 11:39 kb 02/21 08:05 Order name: Lipase; Complete Time: 11:39 kb 02/21 08:19 Order name: UA Rfx Yunier Cult if indicated; Complete Time: 11:24 kb 02/21 08:05 Order name: CT Stone Protocol; Complete Time: 09:35 kb 02/21 08:05 Order name: IV Saline Lock; Complete Time: 08:44 kb 02/21 08:05 Order name: Labs collected and sent; Complete Time: 08:44 kb Administered Medications: 08:58 Drug: Ondansetron IVP 4 mg IVP once; over 2 minutes Route: IVP; Site: left hand; bp 12:30 Follow up: Response: No adverse reaction cc6 08:58 Drug: NS 0.9% IV 1000 ml IV at 1 bolus Per protocol; to be given as a bolus over 60 bp minutes Route: IV; Rate: 1 bolus; Site: left hand; 12:30 Follow up: Response: No adverse reaction; IV Status: Completed infusion cc6 08:58 Drug: Acetaminophen PO 1000 mg PO once Route: PO; bp 12:30 Follow up: Response: No adverse reaction cc6 08:58 Drug: diphenhydrAMINE IVP 25 mg IVP once Route: IVP; Site: left hand; bp 12:30 Follow up: Response: No adverse reaction cc6 11:00 Drug: diphenhydrAMINE IVP 25 mg IVP once Route: IVP; Site: left hand; bp 12:30 Follow up: Response: No adverse reaction cc6 12:29 Drug: Potassium Chloride PO 20 mEq PO once Route: PO; cc6 12:30 Follow up: Response: No adverse reaction cc6 Disposition: 15:25 Co-signature as Attending Physician, Harjit Samson MD I reviewed the patient's care rn provided by the Advanced Practice Provider and agree with the diagnosis and treatment plan. Disposition Summary: 02/21/25 11:43 Discharge Ordered Notes: Location: Home kb Condition: Stable kb Diagnosis - Low back pain kb - Other hydronephrosis kb Followup: kb - With: Emergency Department - When: As needed - Reason: Worsening of condition Followup: kb - With: Private Physician - When: 2 - 3 days - Reason: Recheck today's complaints, Continuance of care, Re-evaluation by your physician Discharge Instructions: - Discharge Summary Sheet kb - Hydronephrosis kb - Flank Pain, Adult, [id number] kb Forms: - Medication Reconciliation Form kb - Antibiotic Education kb - Prescription Opioid Use kb - Patient Portal Instructions kb - Leadership Thank You Letter kb Prescriptions: - orphenadrine citrate 100 mg Oral Tablet Sustained Release - take 1 tablet ORAL route 2 times per day As needed; 20 tablet; Refills: 0, kb Product Selection Permitted Signatures: Dispatcher [employer] Bobbi Guzman, ABBI PEÑAP-Harjit Oliva MD MD rn Peltier, Brian, RN RN bp Lewis, Lynsay, RN RN ll1 Sarah Archibald RN RN cc6 Corrections: (The following items were deleted from the chart) 08:05 08:05 Stone Protocol+CT.RAD.BRZ ordered. EDMS EDMS 08: 08:05 Constitutional: The patient appears alert, awake, in obvious pain, kb kb 08:20 08:19 UA Rfx Yunier Cult if indicated+U.LAB.BRZ ordered. EDMS EDMS
[2025-02-21] MEDS ORDERED: POTASSIUM CL SA 10 MEQ TAB PO ONE (12:25)
[2025-02-21 19:26] VITALS: TEMP 97.8
[2025-02-21 19:30] VITALS: BP 125/76; O2SAT 100
== END 2025-02-21 12:36 | disposition home or self-care (01) ==
LOC: ER 07:52
DX: M54.50 Low back pain, unspecified (principal); N13.39 Other hydronephrosis; Z87.442 Personal history of urinary calculi
CPT/HCPCS: 96361; 85025; 81001; 36415; 83690; 80053; 76377; 74176; 96375; 96374; 99284; J1200 ×2; J2405; J7030